=== PATIENT | male | born 1950 | race Caucasian/White ===

== ENCOUNTER 2024-08-07 11:56 | Outpatient (RCR) | payer MEDICARE, OTHER, SELFPAY | END 2024-08-11 23:59 | disposition home or self-care (01) | LOC: CR 11:56 | PROVIDERS: PCP Nurse Practitioner Primary Care; Visit Provider Internal Medicine Cardiovascular Disease | DX: I21.3 ST elevation (STEMI) myocardial infarction of unspecified site (principal) ==

== ENCOUNTER → 2024-08-31 11:00 | Outpatient (BNVA) | payer MEDICARE, SELFPAY | PROVIDERS: PCP Nurse Practitioner Primary Care; Referring Provider Nurse Practitioner Primary Care; Visit Provider Internal Medicine Cardiovascular Disease | DX: I21.02 ST elevation (STEMI) myocardial infarction involving left anterior descending coronary artery (principal) | CPT/HCPCS: 99203 ==

== ENCOUNTER 2024-09-07 11:04 | Outpatient (RCR) | payer MEDICARE, SELFPAY ==
--- NOTE | 2024-08-17 08:00 | RT.EKG_ITS ---
APPROVED REPORT Exam: Resting ECG Reason for Exam: cardiac rehab intake Patient Location: O HR:56 bpm ECG Measurements Heart Rate 56 AXIS CO 162 P 59 QRSd 115 QRS 193 QT 466 T 172 QTc 450 Conclusion Sinus rhythm...normal P axis, V-rate 50- 99 Nonspecific intraventricular conduction delay...QRSd >115mS, not LBBB/RBBB Anterolateral infarct, age indeterminate...Q >35mS, flat/neg T, V3-V6,I,aVL
--- NOTE | 2024-08-22 10:15 | RT.EKG_ITS ---
APPROVED REPORT Exam: Resting ECG Reason for Exam: EKG changes Patient Location: O HR:56 bpm ECG Measurements Heart Rate 56 AXIS IN 167 P 78 QRSd 99 QRS 128 QT 473 T 171 QTc 457 Conclusion Sinus rhythm...normal P axis, V-rate 50- 99 Anterolateral infarct, age indeterminate...Q >35mS, flat/neg T, V3-V6,I,aVL I have reviewed and I agree with the emergency room physician's ECG interpretation.
--- OUTSIDE RECORDS SUMMARY | 2024-08-22 11:32 | XMS_ITS | Clinical Summary ---
Author Organization [facility] Address [facility] [place] [address] Care Team Providers Care Android Ui Developer Name Role Phone Alexia Mtz CAN FILLER Primary Care Provider [phone] Allergies No known active allergies Medications Medication Sig Dispensed Refills Start Date End Date Status losartan (Cozaar) 25 mg tablet Take 25 mg by mouth daily. 04/17/2023 Active Psyllium Seed-Sucrose (0) Powder Take by mouth. Active tamsulosin (Flomax) 0.4 mg capsule Take 0.8 mg by mouth daily. 08/28/2023 Active aspirin EC 81 mg EC (DR) tablet Take 1 tablet by mouth daily. 30 tablet 3 08/05/2024 Active atorvastatin (Lipitor) 80 mg tablet Take 1 tablet by mouth every evening. 90 tablet 3 08/04/2024 Active clopidogreL (Plavix) 75 mg tablet Take 1 tablet by mouth daily. 90 tablet 3 08/05/2024 Active metoprolol succinate XL (Toprol-XL) 25 mg ER 24 hr tablet Take 1 tablet by mouth daily. 30 tablet 12 08/05/2024 Active spironolactone (Aldactone) 25 mg tablet Take 0.5 tablets by mouth daily for 90 days. 15 tablet 2 08/05/2024 11/03/2024 Active nitroGLYcerin (Nitrostat) 0.[address] 1 tablet under the tongue every 5 minutes as needed for Chest pain. 90 tablet 12 08/04/2024 Active dapagliflozin propanediol (Farxiga) 10 mg tablet Take 1 tablet by mouth daily for 60 days. 30 tablet 1 08/04/2024 10/03/2024 Active Active Problems Problem Noted Date Diagnosed Date STEMI (ST elevation myocardial infarction) 07/29 Dizziness 02/07/2019 Encounters Date Type Department Care Team Description 07/31/2024 4:45 PM EST Anesthesia Event [place] [address] Venkatesh Mauricio MD 07/31/2024 4:30 PM EST - 07/31/2024 5:30 PM EST Surgery [place] [address] Maldonado Luis MD CARDIAC CATHETERIZATION 07/29/2024 6:32 PM EST - 07/29/2024 11:59 PM EST Hospital Encounter [facility] at [address] [phone] Arvin Becerra MD Discharge Disposition: Home 07/29/2024 12:00 PM EST - 07/29/2024 12:54 PM EST Surgery [place] [address] Vahe Marvin MD CARDIAC CATHETERIZATION 07/29/2024 11:45 AM EST - 08/04/2024 5:00 PM EST [place] [address] Vahe Marvin MD Dadekian, Gregory A, MD Welch, Terrence D, MD Vinod, Poornima, MD Kostojchin, Anastas, MD Kussaga, Frank M, MD ST elevation myocardial infarction involving left anterior descending (LAD) coronary artery; HFrEF (heart failure with reduced ejection fraction) Discharge Disposition: Home 07/29/2024 Orders Only [place] [address] Susannah Watts PA 07/29/2024 Interpretation Only [address] [phone] Deondre Ferrera MD 07/29/2024 [place] [address] Ivan Hernandez MD 07/29/2024 External [place] [address] 07/28/2024 Interpretation Only [address] [phone] Quinten Coffey MD 06/25/2024 [place] [address] Aubrey Cali MD Pyuria from Last 3 Months Immunizations Name Administration Dates Next Due Influenza Adjuvanted (FluAd) Trivalent, PF 65yrs + 08/04/2024 Family History Medical History Relation Comments Celiac Disease Neg Hx Colorectal Cancer Neg Hx Esophageal Cancer Neg Hx Inflammatory Bowel Disease Neg Hx Pancreatic Cancer Neg Hx Stomach Cancer Neg Hx Relation Status Comments Daughter Alive Social History Tobacco Use Types Packs/Day Years Used Date Smoking Tobacco: Former Cigarettes Smokeless Tobacco: Never Tobacco Cessation:Counseling Given: Not Answered Alcohol Use Standard Drinks/Week Comments Not Currently 0 (1 standard drink = 0.6 oz pur e alcohol) [facility] Utilities Answer Date Recorded In the past 12 months has th e [employer], gas, oil, or water Elli threatened to shut off services in your home? No 07/30/2024 Hunger Vital Sign Answer Date Recorded Within the past 12 months, y ou worried that your food would run out before you got the money to buy more. Never true 07/30/20 24 Within the past 12 months, t he food you bought just didn't last and you didn't have money to get more. Never true 07/30/2024 PRAPARE - Transportation Answer Date Re corded In the past 12 months, has l ack of transportation kept you from medical appointments or from getting medications? No 07/13 In the past 12 months, has l ack of transportation kept you from meetings, work, or from getting things needed for daily living? No 07/30/2024 Housing Stability Vital Sign Answer Gilberto e Recorded In the last 12 months, was t here a time when you were not able to pay the mortgage or rent on time? No 07/30/2024 In the past 12 months, how m any times have you moved where you were living? 0 07/30/2024 At any time in the past [address] [facility], were you homeless or living in a custodial (including now)? No 07/30/2024 COUNTS INCLUDE 234 BEDS AT THE [facility] Inpatient Questions Answer Date Recorded Does Anyone Try to Keep You From Having Contact with Others or Doing Things Outside Your Home? no 07/30/2024 Feels Threatened by Someone no 07/13 Feels Unsafe at Home or Work/School yes 07/30/2024 Physical Signs of Abuse Present no 07/30/2024 Sex and Gender Information Value Date Recorded Sex Assigned at Male 06/21/2023 9:42 AM EDT Gender Identity Male 06/21/2023 9:42 AM EDT Sexual Orientation Straight 06/21/2023 9: 42 AM EDT Last Filed Vital Signs Vital Sign Reading Time Taken Comments Blood Pressure 103/58 08/04/2024 3:42 PM EST Pulse 71 08/04/2024 3:42 PM EST Temperature 37.2 ??C (99 ??F) 08/04/2024 4:00 AM EST Respiratory Rate 18 08/04/2024 3:42 PM EST Oxygen Saturation 98% 08/04/2024 3:42 PM EST Inhaled Oxygen Concentration - - Weight 61.3 kg (135 lb 2.3 oz) 08/03/2024 4:00 A M EST Height 167.6 cm (5' 6) 07/30/2024 2:49 AM EST Body Mass Index 21.81 07/30/2024 2:49 AM EST Plan of Treatment Upcoming Encounters Date Type Department Care Team (Late st Contact Info) Description 10/01/2024 10:00 AM EST Office Visit Cardiology at [address] [phone] Mushtaq Murphy, FREDRICK Health Maintenance Due Date Last Done Comments CT Colonography 1950 FIT DNA 1950 FIT 1950 Sigmoidoscopy 1950 Pneumoccocal Vaccine: 65+ (1 of 2 - PCV) 1958 Hepatitis C Screening 1970 Tetanus/Diphtheria/Pertussis Vaccines (1 - Tdap) 1971 Zoster vaccine (1 of 2) 2002 Advance Directive 2007 RSV Vaccine (1 - Risk 60-74 years 1-dose series) 2012 AAA Screen 2017 Covid-19 Vaccine (1 - season) 2024 Colonoscopy 08/30/2033 08/30/2023, 08/30/2023 Colorectal Cancer Screening 08/30/2033 Sigmoidoscopy (10 year) with FIT yearly 08/30/2033 1 10/31/2022, 08/30/2023 Lipid Screening Discontinued 07/29/2024 Influenza (Flu) vaccine Completed 08/04/2024 Procedures Procedure Name Priority Date/Time Associated Diagnosis Comments CBC (WITH DIFF) Routine 08/04/2024 6:08 AM EST MAGNESIUM Routine 08/04/2024 6:08 AM EST BASIC METABOLIC PANEL Routine 08/04/2024 6:08 AM EST CBC (WITH DIFF) Routine 08/03/2024 5:16 AM EST MAGNESIUM Routine 08/03/2024 5:16 AM EST BASIC METABOLIC PANEL Routine 08/03/2024 5:16 AM EST POC, GLUCOSE Routine 08/02/2024 7:47 AM EST SCAN DOC: TELEMETRY STRIPS 08/02/2024 7:37 AM EST CBC (WITH DIFF) Routine 08/02/2024 4:20 AM EST MAGNESIUM Routine 08/02/2024 4:20 AM EST BASIC METABOLIC PANEL Routine 08/02/2024 4:20 AM EST POTASSIUM Routine 08/01/2024 8:39 PM EST POC, GLUCOSE Routine 08/01/2024 8:35 PM EST SCAN DOC: TELEMETRY STRIPS 08/01/2024 7:25 PM EST SCAN DOC: TELEMETRY STRIPS 08/01/2024 7:25 PM EST POC, GLUCOSE Routine 08/01/2024 4:55 PM EST POC, GLUCOSE Routine 08/01/2024 12:42 PM EST COOX, POC Routine 08/01/2024 10:45 AM EST POTASSIUM Routine 08/01/2024 8:20 AM EST POC, GLUCOSE Routine 08/01/2024 7:44 AM EST CBC (WITH DIFF) Routine 08/01/2024 4:18 AM EST MAGNESIUM Routine 08/01/2024 4:18 AM EST BASIC METABOLIC PANEL Routine 08/01/2024 4:18 AM EST POC, GLUCOSE Routine 07/31/2024 8:41 PM EST CARDIAC CATHETERIZATION Routine 07/31/20 24 5:53 PM EST POC, GLUCOSE Routine 07/31/2024 11:04 AM EST BLOOD GAS ARTERIAL POC Routine 8:29 AM EST POC, GLUCOSE Routine 07/31/2024 7:47 AM EST CBC (WITH DIFF) Routine 07/31/2024 1:08 AM EST MAGNESIUM Routine 07/31/2024 1:08 AM EST BASIC METABOLIC PANEL Routine 07/31/2024 1:08 AM EST HEPATIC FUNCTION PANEL Routine 1:08 AM EST POC, GLUCOSE Routine 07/30/2024 8:03 PM EST POTASSIUM Routine 07/30/2024 8:03 PM EST POC, GLUCOSE Routine 07/30/2024 6:23 PM EST POC, GLUCOSE Routine 07/30/2024 5:08 PM EST PHOSPHORUS Routine 07/30/2024 3:08 PM EST MAGNESIUM Routine 07/30/2024 3:08 PM EST BASIC METABOLIC PANEL Routine 07/30/2024 3:08 PM EST ECHO LMTD W CONTRAST W LMTD SPEC DOPP COLOR DOPP Routine 07/30/2024 11:[address] elevation myocardial infarction involving left anterior descending (LAD) coronary artery POC, GLUCOSE Routine 07/30/2024 11:17 AM EST BLOOD GAS ARTERIAL POC Routine 8:16 AM EST TROPONIN - SINGLE STAT 07/30/2024 8:0 9 AM EST POC, GLUCOSE Routine 07/30/2024 7:40 AM EST CBC (WITH DIFF) Routine 07/30/2024 2:11 AM EST MAGNESIUM Routine 07/30/2024 2:11 AM EST BASIC METABOLIC PANEL Routine 07/30/2024 2:11 AM EST ECHOCARDIOGRAM TRANSTHORACIC Routine 07/30/2024 1:41 AM EST COOX, POC Routine 07/30/2024 1:00 AM EST BLOOD GAS ARTERIAL POC Routine 12:57 AM EST TROPONIN - SINGLE STAT 07/29/2024 10: 31 PM EST POTASSIUM Routine 07/29/2024 8:11 PM EST TROPONIN - SINGLE Timed 07/29/2024 8:1 1 PM EST PHOSPHORUS Routine 07/29/2024 8:11 PM EST POC, GLUCOSE Routine 07/29/2024 8:09 PM EST ABORH RECHECK STAT 07/29/2024 6:43 PM EST POC, GLUCOSE Routine 07/29/2024 5:57 PM EST TYPE AND SCREEN ([facility]/CGP/MAGALIE) Routine 07/29/2024 5:56 PM EST TROPONIN - SINGLE Timed 07/29/2024 4:5 2 PM EST EKG 12-LEAD STAT 07/29/2024 4:[address] elevation myocardial infarction involving left anterior descending (LAD) coronary artery BLOOD GAS ARTERIAL POC Routine 4:21 PM EST POC, GLUCOSE Routine 07/29/2024 4:19 PM EST BLOOD CULTURE STAT 07/29/2024 4:08 PM EST BLOOD CULTURE STAT 07/29/2024 4:08 PM EST XR CHEST ONE VIEW STAT 07/29/2024 2:3 0 PM EST HC PARTIAL THROMBOPLASTIN TIME Routine 07/29/2024 2:03 PM EST PROTHROMBIN TIME Routine 07/29/2024 2:03 PM EST CRP, ACUTE INFLAMMATION Routine 07/29/20 24 2:03 PM EST LIPID PANEL (REFLEX DIRECT LDL) Routine 07/29/2024 2:03 PM EST TSH CASCADE Routine 07/29/2024 2:03 PM EST HEMOGLOBIN A1C Routine 07/29/2024 2:03 PM EST CBC (WITH DIFF) STAT 07/29/2024 2:03 PM EST PHOSPHORUS STAT 07/29/2024 2:03 PM EST MAGNESIUM STAT 07/29/2024 2:03 PM EST COMPREHENSIVE METABOLIC PANEL Routine 07/29/2024 2:03 PM EST TROPONIN - SINGLE STAT 07/29/2024 2:0 3 PM EST BLOOD GAS VENOUS POC Routine 07/29/2024 2:01 PM EST EKG 12-LEAD Routine 07/29/2024 1:43 PM EST CARDIAC CATHETERIZATION Routine 07/29/20 1:20 PM EST BLOOD GAS, POC Routine 07/29/2024 12:46 PM EST BLOOD GAS, POC Routine 07/29/2024 12:12 PM EST XR CHEST ONE VIEW STAT 07/29/2024 10: 50 AM EST MISC EXTERNAL CARDIOLOGY RESULT Routine 07/29/2024 10:13 AM EST XR CHEST ONE VIEW STAT 07/28/2024 10: 22 AM EST URINE CULTURE Routine 06/25/2024 11:55 AM EDT Pyuria COLONOSCOPY Routine 08/30/2023 10:57 AM EST from Last 3 Months or Most Recently Relevant to Health Maintenance Results * (ABNORMAL) CBC (with Diff) (08/04/2024 6:08 AM EST) Only the most recent of7 resultswithin the time period is included. White Blood Cell 7.27 4.00 - 9.50 x10(3)/mc L 08/04/2024 6:39 AM [facility] Red Blood Cell 4.28(L) 4.58 - 5.54 x10(6)/mc L 08/04/2024 6:39 AM [facility] Hemoglobin 11.6(L) 13.7 - 16.5 g/dL 08/04/2024 6:39 AM [facility] Hematocrit 34.8(L) 40.5 - 48.5 % 08/04/2024 6:39 AM [facility] Mean Cell Volume 81.3(L) 82.9 - 93.1 fL 08/04/2024 6:39 AM [facility] Mean Cell Hemoglobin 27.1(L) 27.5 - 32.1 pg 08/04/2024 6:39 AM [facility] Mean Cell Hemoglobin Concentration 33.3 32.0 - 35.7 g/dL 08/04/2024 6:39 AM [facility] Platelet 178 145 - 357 x10(3)/mc L 08/04/2024 6:39 AM [facility] Mean Platelet Volume 10.6 7.6 - 12.9 fL 08/04/2024 6:39 AM [facility] RDW Standard Deviation 42.0 36.0 - 45.0 fL 08/04/2024 6:39 AM [facility] RDW coefficient of variation 14.3(H) 11.4 - 13.8 % 08/04/2024 6:39 AM [facility] NRBC% auto 0.0 % 08/04/2024 6:39 AM [facility] NRBC Absolute <0.01 <0.01 x10(3)/mc L 08/04/2024 6:39 AM [facility] Neutrophil % 72.1 % 08/04/2024 6:39 AM [facility] Neutrophil Absolute (ANC) - Automated 5.24 1.70 - 6.10 x10(3)/mc L 08/04/2024 6:39 AM [facility] Lymph % 16.8 % 08/04/2024 6:39 AM [facility] Lymph Absolute 1.22 0.90 - 3.20 x10(3)/mc L 08/04/2024 6:39 AM [facility] Monocyte % 8.5 % 08/04/2024 6:39 AM [facility] Monocyte Absolute 0.62 0.30 - 0.90 x10(3)/mc L 08/04/2024 6:39 AM [facility] Eos % 1.9 % 08/04/2024 6:39 AM [facility] Eos Absolute 0.14 0.00 - 0.40 x10(3)/mc L 08/04/2024 6:39 AM [facility] Basophil % 0.4 % 08/04/2024 6:39 AM [facility] Baso Absolute <0.04 0.00 - 0.10 x10(3)/mc L 08/04/2024 6:39 AM [facility] Immature Gran % 0.3 % 6:39 AM [facility] Immature Gran Absolute <0.04 0.00 - 0.04 x10(3)/mc L 08/04/2024 6:39 AM [facility] Blood VENOUS BLOOD SPECIMEN / Unknown Venipuncture / Unknown 08/04/2024 6:08 AM EST 08/04/2024 6:19 AM EST Bridgette Stauffer MD HEMATOLOGY ORDERABLE S Performing Organization Address City/[facility]/ZIP Co de Phone Number [facility] [place] [address] * Magnesium (08/04/2024 6:08 AM EST) Only the most recent of8 resultswithin the time period is included. Magnesium 0.85 0.69 - 1.07 mMol/L 08/04/2024 7:07 AM [facility] Blood VENOUS BLOOD SPECIMEN / Unknown Venipuncture / Unknown 08/04/2024 6:08 AM EST 08/04/2024 6:19 AM EST Bridgette Stauffer MD CHEMISTRY ORDERABLES Performing Organization Address [facility] Co de Phone Number [facility] [place] [address] * Basic Metabolic Panel (08/04/2024 6:08 AM EST) Only the most recent of7 resultswithin the time period is included. Glucose 93 65 - 199 mg/dL 08/04/2024 7:07 AM [facility] Comment:Glucose Concentratio n >=200 mg/dL plus symptoms is consistent with Diabetes Mellitus. Blood Urea Nitrogen 14 10 - 20 mg/dL 08/04/2024 7:07 AM [facility] Creatinine 1.07 0.80 - 1.50 mg/dL 08/04/2024 7:07 AM [facility] Sodium 138 135 - 145 mMol/L 08/04/2024 7:07 AM [facility] Potassium 4.3 3.5 - 5.0 mMol/L 08/04/2024 7:07 AM [facility] Chloride 107 98 - 107 mMol/L 08/04/2024 7:07 AM [facility] Carbon Dioxide 23 22 - 31 mMol/L 08/04/2024 7:07 AM [facility] Anion Gap 8 5 - 15 mMol/L 08/04/2024 7:07 AM EST [facility] Calcium 8.5 8.5 - 10.5 mg/dL 08/04/2024 7:07 AM EST [facility] Est Glomerular Filtration Rate - Male 74 mL/min/1. 73 m?? 08/04/2024 7:07 AM EST [facility] Comment: This patient's estimated GFR was calculated using the 2020 CKD-EPI equation. The estimated GFR can vary from the measured GFR by up to 30% in the absence of rapidly changing kidney function. Assessment of the estimated GFR is not appropriate when creatinine concentrations are rapidly changing. For clinical situations in which a more precise estimate of GFR is necessary, consider alternative methods of GFR estimation such as a 24-hour urine creatinine clearance. Assignment of CKD stage 1 - 5 for patients with an eGFR near the transition point between stages may be based on clinical assessment of muscle mass and symptoms in addition to eGFR. Link: eGFR Calculator [employer] Blood VENOUS BLOOD SPECIMEN / Unknown Venipuncture / Unknown 08/04/2024 6:08 AM EST 08/04/2024 6:19 AM EST Bridgette Stauffer MD CHEMISTRY ORDERABLES Performing Organization Address City/[facility]/ZIP Co de Phone Number [facility] [place] [address] * POC, GLUCOSE (08/02/2024 7:47 AM EST) Only the most recent of16 resultswithin the time period is included. [facility] Signature Glucometer, POC 89 65 - 199 mg/dL 08/02/2024 7:47 AM EST [facility] Comment:Supplemental ranges: <140 mg/dL before meals <180 mg/dL all other times of the day. Blood CAPILLARY BLOOD / Unknown 08/02/2024 7:47 AM EST 08/02/2024 7:47 AM EST Arnel Parker MD POINT OF CARE TEST O RDERABLES Performing Organization Address City/[facility]/ZIP Co de Phone Number [facility] [place] [address] * Scan Doc: Telemetry Strips (08/02/2024 7:37 AM EST) Only the most recent of3 resultswithin the time period is included. Narrative 08/02/2024 7:37 AM EST Ordered by an unspecified provider. Scanning Provider MEDIA MGR SCAN EXT O RDR/RSLT * Potassium (08/01/2024 8:39 PM EST) Only the most recent of4 resultswithin the time period is included. Pathologist [facility] Potassium 4.0 3.5 - 5.0 mMol/L 08/01/2024 9:21 PM EST [facility] Blood VENOUS BLOOD SPECIMEN / Unknown Venipuncture / Unknown 08/01/2024 8:39 PM EST 08/01/2024 8:51 PM EST Jay Silverio MD CHEMISTRY ORDERABL ES [facility] [place] [address] * (ABNORMAL) Cooximetry, POC (08/01/2024 10:45 AM EST) Only the most recent of2 resultswithin the time period is included. pO2, Coox 32 mmHg 08/01/2024 10:48 AM EST [facility] Hemoglobin, Coox 12.9(L) 13.7 - 16.5 g/dL 08/01/2024 10:48 AM EST [facility] Oxyhemoglobin, Coox 66.7 % 08/01/2024 10:48 AM EST [facility] Carboxyhemoglo bin, Coox 1.1 % 08/01/2024 10:48 AM EST [facility] Comment: Nonsmokers: 0.5-1.5% COHB ?? Smokers: Variable ??but usually less than 10% ?? Toxic: 20-30% COHB ?? Lethal: Greater than 60% COHB Methemoglobin, Coox 0.3 <=1.5 % 08/01/2024 10:48 AM EST [facility] Blood (Mixed Venous) 08/01/2024 10:45 AM EST 08/01/2024 10:48 AM EST Arnel Parker MD POINT OF CARE TEST O RDERABLES Performing Organization Address [facility]/State/[facility] Co de Phone Number [facility] [place] [address] * CARDIAC CATHETERIZATION (07/31/2024 5:53 PM EST) Only the most recent of2 resultswithin the time period is included. Anatomical Region Laterality Modality Other Narrative 08/01/2024 12:37 PM EST ?[facility] ? Cardiac Catheterization/Intervention Report ? Patient Name: MontoyaKorey. ? Procedure Date: 07/31/2024 ? A #: [id number] ? Primary Physician: Janelle, Maldonado Muro ? Case #: [id number] ? File Name: [id number] ? Catheterization Order Number: [id number] ? [facility] ? Final Report [place], [place] ? Patient Name: ? Korey Montoya ?ID#: ?[id number] ? : ?1950 ? Procedure Date: ? July 31, 2024 ?Case #: ? [id number] ? Room: ? 1 ? Case Physician: ? Maldonado Luis MVictor M. ?Start: ?17:10 ? Admission: ??07/29/2024 ? Referring Physician: ??Deondre Ferrera ? Procedures: ?* Vascular Closure Device Deployment ?* Percutaneous Ventricular Assist Device Removal ? History ?Korey Montoya is a 74 year old man. He has hypertension. The ?patient's smoking status is Former. He is status post a recent ST ?elevation myocardial infarction. The patient had a recent coronary ?intervention procedure. Prior to the initiation of this procedure, the ?patient was designated as ASA Class IV. The CSHA clinical frailty scale ?is 4: Vulnerable. ? Diagnostic Tests: ?Electrocardiography: ? EKG was assessed by ECG. EKG was Abnormal. EKG showed ST Deviation ? >= 0.5 mm. ?Medications Prior to Procedure: ? Antiarrhythmic Agent Other, Aspirin and Angiotensin II Receptor ? Janice. ? Technique: ?Radiation: Fluoro time was 0.5 minutes, dose area product was 0.33 Gy/cm2 ?and air kerma was 2 mGY. See the case log for additional details. ?The patient received the following medications prior to and during the ?procedure: ? Unfractionated Heparin and Clopidogrel. ? Vascular Access: ?Vascular Access Management: ? A 6 Fr Perclose was deployed at the right femoral artery access ? site. This device was successful. Manual Compression of the right ? femoral artery access site was performed. ? An 8 Fr AngioSeal was deployed at the right femoral artery access ? site. This device was successful. Manual Compression of the right ? femoral artery access site was performed. ? Complications/Events: ?The patient had no complications during these procedures. ? Comments: ?Impella removed from the right [employer]CH[employer]ICIAN with deployment of Perclose and ?Angioseal. ??Good hemostasis. ?The attending physician was present for the entire procedure. ?Dr. Maldonado Luis M.D. was present during the moderate sedation ?intraservice time as documented by the sedation nurse. ??Case time = 00:35. ?Dr. Maldonado Luis M.D. performed the vascular closure device and ?ventricular assist device removal. ? Maldonado Luis M.D. ? Electronically Signed by: Maldonado Luis M.D. ? Report Finalized: 08/01/2024 ??12:31 ? Procedure Note Maldonado Luis MD - 08/01/2024 [facility] Cardiac Catheterization/Intervention Report Patient Name: Korey Montoya Procedure Date: 07/31/2024 A #: [id number] Primary Physician: Maldonado Luis Case #: [id number] File Name: [id number] Catheterization Order Number: [id number] [facility] FinalReport [place], [place] Patient Name: Korey Montoya ID#:[id number] :1950 Procedure Date: July 31, 2024 Case #: [id number] Room: 1 Case Physician: Maldonado Luis M.D. Start: 17:10 Admission:07/29/2024 Referring Physician: Deondre Ferrera Procedures: * Vascular Closure Device Deployment * Percutaneous Ventricular Assist Device Removal History Korey Montoya is a 74 year old man. He has hypertension. The patient's smoking status is Former. He is status post a recent ST elevation myocardial infarction. The patient had a recent coronary intervention procedure. Prior to the initiation of this procedure,the patient was designated as ASA Class IV. The [facility] clinical frailtyscale is 4: Vulnerable. Diagnostic Tests: Electrocardiography: EKG was assessed by ECG. EKG was Abnormal. EKG showed STDeviation >= 0.5 mm. Medications Prior to Procedure: Antiarrhythmic Agent Other, Aspirin and Angiotensin II Receptor Janice. Technique: Radiation: Fluoro time was 0.5 minutes, dose area product was 0.33Gy/cm2 and air kerma was 2 mGY. See the case log for additional details. The patient received the following medications prior to and duringthe procedure: Unfractionated Heparin and Clopidogrel. Vascular Access: Vascular Access Management: A 6 Fr Perclose was deployed at the right femoral artery access site. This device was successful. Manual Compression of theright femoral artery access site was performed. An 8 Fr AngioSeal was deployed at the right femoral arteryaccess site. This device was successful. Manual Compression of theright femoral artery access site was performed. Complications/Events: The patient had no complications during these procedures. Comments: Impella removed from the right [employer] with deployment of Perclose and Angioseal. Good hemostasis. The attending physician was present for the entire procedure. Dr. Maldonado Luis M.D. was present during the moderate sedation intraservice time as documented by the sedation nurse. Case time =00:35. Dr. Maldonado Luis M.D. performed the vascular closure device and ventricular assist device removal. Maldonado Luis M.D. Electronically Signed by: Maldonado Luis M.D. Report Finalized: 08/01/2024 12:31 Maldonado Luis MD CARDIAC CATH ORDERAB LES * (ABNORMAL) Blood Gas, Arterial POC (07/31/2024 8:29 AM EST) Only the most recent of4 resultswithin the time period is included. pH, Arterial 7.48(H) 7.35 - 7.45 07/31/2024 8:30 AM [facility] PCO2, Arterial 29(L) 35 - 45 mmHg 07/31/2024 8:30 AM [facility] PO2, Arterial 71(L) 85 - 104 mmHg 07/31/2024 8:30 AM [facility] Bicarbonate, Arterial 20.6 20.0 - 26.0 mmol/L 07/31/2024 8:30 AM [facility] Base Excess, Arterial -3.0 -3.0 - 3.0 mmol/L 07/31/2024 8:30 AM [facility] Hemoglobin, Arterial 12.3(L) 13.7 - 16.5 g/dL 07/31/2024 8:30 AM [facility] Oxyhemoglobin, Arterial 94.4 94.0 - 97.0 % 07/31/2024 8:30 AM [facility] Carboxyhemoglobin , Arterial 0.7 % 07/31/2024 8:30 AM [facility] Comment: Nonsmokers: 0.5-1.5% COHB ?? Smokers: Variable ??but usually less than 10% ?? Toxic: 20-30% COHB ?? Lethal: Greater than 60% COHB Methemoglobin, Arterial 0.3 <=1.5 % 07/31/2024 8:30 AM [facility] Sodium, Arterial 138 135 - 145 mmol/L 07/31/2024 8:30 AM [facility] Potassium, Arterial 3.5 3.5 - 5.0 mmol/L 07/31/2024 8:30 AM [facility] Chloride, Arterial 109(H) 98 - 107 mmol/L 07/31/2024 8:30 AM [facility] Lactate, Arterial 0.8 0.5 - 2.2 mmol/L 07/31/2024 8:30 AM [facility] Fraction of Inspired Oxygen 21 % 07/31/2024 8:30 AM [facility] PF Ratio 338 Ratio 07/31/2024 8:30 AM [facility] Comment:PF ratio calculated using the non-temperature corrected pO2 result. IONIZED CALCIUM, ARTERIAL 1.08(L) 1.15 - 1.33 mmol/L 07/31/2024 8:30 AM EST [facility] Glucose, Arterial 86 65 - 199 mg/dL 07/31/2024 8:30 AM EST [facility] Comment:Glucose Concentratio n >=200 mg/dL plus symptoms is consistent with Diabetes Mellitus. Blood ARTERIAL BLOOD / Unknown 07/31/2024 8:29 AM EST 07/31/2024 8:30 AM EST Arnel Parker MD POINT OF CARE TEST O RDERABLES [facility] [place] [address] * (ABNORMAL) Hepatic Function Panel (07/31/2024 1:08 AM EST) Albumin 3.1(L) 3.2 - 5.2 g/dL 07/31/2024 1:46 AM EST [facility] Aspartate Aminotransferase 192(H) <=39 unit/L 07/31/2024 1:46 AM [facility] Alanine Aminotransferase 59(H) 0 - 55 unit/L 07/31/2024 1:46 AM [facility] Alkaline Phosphatase 46 40 - 130 unit/L 07/31/2024 1:46 AM [facility] Bilirubin, Total 0.4 <=1.3 mg/dL 07/31/2024 1:46 AM [facility] Bilirubin, Direct <0.2 0.0 - 0.3 mg/dL 07/31/2024 1:46 AM EST [facility] Protein, Total 5.0(L) 6.1 - 8.0 g/dL 07/31/2024 1:46 AM [facility] Blood VENOUS BLOOD SPECIMEN / Unknown Venipuncture / Unknown 07/31/2024 1:08 AM EST 07/31/2024 1:18 AM EST Arnel Parker MD CHEMISTRY ORDERABLES Performing Organization Address City/[facility]/ZIP Co de Phone Number [facility] [place] [address] * (ABNORMAL) Phosphorus (07/30/2024 3:08 PM EST) Only the most recent of3 resultswithin the time period is included. Phosphorus 2.1(L) 2.5 - 4.5 mg/dL 07/30/2024 3:58 PM EST [facility] Blood VENOUS BLOOD SPECIMEN / Unknown Venipuncture / Unknown 07/30/2024 3:08 PM EST 07/30/2024 3:12 PM EST Jay Silverio MD CHEMISTRY ORDERABL ES Performing Organization Address City/[facility]/ZIP Co de Phone Number [facility] [place] [address] * ECHO LMTD W CONTRAST W LMTD SPEC DOPP COLOR DOPP (07/30/2024 11:42 AM EST) Anatomical Region Laterality Modality Cardiac Other 07/30/2024 10:2 2 AM EST Narrative 07/30/2024 12:34 PM EST [address] [place] [address] ? Echocardiogram Report Name: KOREY MONTOAY ? Study Date: 07/30/2024 10:22 AMBP: 124/66 mmHg : 1950 ? Height: 168 cm ? Account: [id number] Age: 74 yrs ? Weight: 65 kg Gender: Male ?BSA: 1.7 m2 Ordering Physician: Jya Silverio MD Referring Physician: DEONDRE FERRERA Performed By: OMERO Millan Reason For Study: ST elevation myocardial infarction involving left anterior descending (LAD) coronary artery Interpreting Fellow: Ivan Hernandez. Exam Location: [facility]. Interpretation Summary Left ventricle is severely dilated. Mildly increased thickness of the basal septum with no obstruction to LV outflow. Left ventricular systolic function is moderately reduced. The left ventricular ejection fraction is 33% by Giordano's biplane. There are segmental wall motion abnormalities. There is no left ventricular thrombus. An Impella catheter is present. The inlet area of the Impella catheter is 3.6 cm from the aortic annulus. The right ventricle is of normal size. The distal right ventricular apex is akinetic. Global right ventricular systolic function is probably normal. The peak right ventricular systolic pressure is 32 mmHg Plus RA presssure. The left atrium is mildly dilated. Mild to moderate tricuspid regurgitation. Mild mitral regurgitation. Mild aortic regurgitation. Compared to the overnight study by the language and literature division chair fellow the impella position is stable. 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 Procedure Limited - 36[address]. Image enhancement Definity was used for both Doppler and ventricular definition. Suboptimal quality. This study is limited because the patient was unable to turn. Irregular rhythm. Left Ventricle Left ventricle is severely dilated. Mildly increased thickness of the basal septum with no obstruction to LV outflow. There is no ventricular septal defect. Left ventricular systolic function is moderately reduced. The left ventricular ejection fraction is 38% by Giordano's biplane. There are segmental wall motion abnormalities. There is no left ventricular thrombus. An Impella catheter is present. The inlet area of the Impella catheter is 3.6 cm from the aortic annulus. Right Ventricle The right ventricle is of normal size. The right ventricular apex is akinetic. Right ventricular function is probably normal. Left Atrium The left atrium is mildly dilated. Right Atrium The right atrium is normal. Aortic Valve The aortic valve is probably trileaflet. There is mild aortic regurgitation. Mitral Valve The mitral valve is structurally and functionally normal. There is mild mitral regurgitation. Tricuspid Valve The tricuspid valve is structurally normal. There is mild to moderate tricuspid regurgitation. Pulmonic Valve The pulmonic valve is not well visualized. There is trace pulmonic valve regurgitation. Great Arteries The diameter at the level of the sinuses of Valsalva is 3.3 cm. The maximum diameter of the proximal ascending aorta is 3.0 cm. The pulmonary artery is not well visualized. Venous Inferior vena cava is not well visualized. Pericardium/Pleural There is no pericardial effusion. Hemodynamics The peak right ventricular systolic pressure is 32 mmHg. Plus RA presssure. Left ventricular diastolic function is abnormal. There is Grade II LV diastolic dysfunction (abnormal relaxation with elevated left ventricular filling pressure). Ejection Fraction ?2D Measurements ? Volumes EF(MOD-bp): 32.6 % ?IVSd: 1.4 cm ? LAV(MOD- bp) Indexed: ?LVIDd: 4.5 cm ?LVIDs: 3.3 cm ?40.0 ml/m2 ?LVPWd: 0.86 cm ? RA A4Cs_phl: 11.2 cm2 ?RWT: 0.38 {ratio} ?EDV(MOD-bp) Indexed: ?LV mass(C)d: 183.7 grams ? 98.2 ml/m2 ?LV mass(C)dI: 105.7 grams/m2 ?? ESV(MOD- bp) Indexed: ?Ao root diam: 3.3 cm ? 66.2 ml/m2 ?Ao root diam index: 1.9 ?asc Aorta Diam: 3.0 cm ?LVOT diam: 1.7 cm ?TAPSE_phl: 1.8 cm Doppler MV E max wellington: 55.5 cm/sec MV A max wellington: 46.1 cm/sec MV E/A: 1.2 Lat Peak E' Wellington: 8.7 cm/sec E/e' (lat): 6.4 Med Peak E' [place]: 6.9 cm/sec E/e' (med): 8.1 E/e' Average: 7.2 TR max wellington: 284.6 cm/sec I ?WMSI = 2.50 ? % Normal = 0 ?Segments ??Size X - Cannot ?2 - ?4 - ?1-2 ? small Interpret ?1 - Normal ?? Hypokinetic 3 - Akinetic Dyskinetic ?? 3-5 ? moderate 5 - ? 6-14 ?large Aneurysmal ?15-16 ?? diffuse Procedure Note Kathleen Banda MD - 07/30/2024 [address] [place] [address] Echocardiogram Report Name: KOREY MONTOYA Study Date: 410:22 AMBP: 124/66 mmHg : 1950 Height: 168 cm Account: [id number] Age: 74 yrs Weight: 65 kg Gender: Male BSA: 1.7 m2 Ordering Physician: Jay Silverio MD Referring Physician: DEONDRE FERRERA Performed By: OMERO Millan Reason For Study: ST elevation myocardial infarction involving leftanterior descending (LAD) coronary artery Interpreting Fellow: Ivan Hernandez. Exam Location: [facility]. Interpretation Summary Left ventricle is severely dilated. Mildly increased thickness of thebasal septum with no obstruction to LV outflow. Left ventricular systolic function is moderately reduced. The left ventricular ejection fraction is 33% bySimpson's biplane. There are segmental wall motion abnormalities. There is no left ventricular thrombus. An Impella catheter is present. The inlet area ofthe Impella catheter is 3.6 cm from the aortic annulus. The right ventricle is of normal size. The distal right ventricular apexis akinetic. Global right ventricular systolic function is probably normal.The peak right ventricular systolic pressure is 32 mmHg Plus RA presssure. The left atrium is mildly dilated. Mild to moderate tricuspid regurgitation. Mild mitral regurgitation. Mild aortic regurgitation. Compared to the overnight study by the language and literature division chair fellow the impella positionis stable. The global left ventricular systolic function has improvedpredominantly via recruitment outside the LAD territory which remains akinetic. Procedure Limited - 37072. Image enhancement Definity was used for both Dopplerand ventricular definition. Suboptimal quality. This study is limited becausethe patient was unable to turn. Irregular rhythm. Left Ventricle Left ventricle is severely dilated. Mildly increased thickness of thebasal septum with no obstruction to LV outflow. There is no ventricular septal defect.Left ventricular systolic function is moderately reduced. The left ventricularejection fraction is 38% by Giordano's biplane. There are segmental wall motion abnormalities. There is no left ventricular thrombus. An Impella catheteris present. The inlet area of the Impella catheter is 3.6 cm from the aorticannulus. Right Ventricle The right ventricle is of normal size. The right ventricular apex isakinetic. Right ventricular function is probably normal. Left Atrium The left atrium is mildly dilated. Right Atrium The right atrium is normal. Aortic Valve The aortic valve is probably trileaflet. There is mild aorticregurgitation. Mitral Valve The mitral valve is structurally and functionally normal. There is mildmitral regurgitation. Tricuspid Valve The tricuspid valve is structurally normal. There is mild to moderatetricuspid regurgitation. Pulmonic Valve The pulmonic valve is not well visualized. There is trace pulmonic valve regurgitation. Great Arteries The diameter at the level of the sinuses of Valsalva is 3.3 cm. Themaximum diameter of the proximal ascending aorta is 3.0 cm. The pulmonary arteryis not well visualized. Venous Inferior vena cava is not well visualized. Pericardium/Pleural There is no pericardial effusion. Hemodynamics The peak right ventricular systolic pressure is 32 mmHg. Plus RApresssure. Left ventricular diastolic function is abnormal. There is Grade II LVdiastolic dysfunction (abnormal relaxation with elevated left ventricular fillingpressure). Ejection Fraction 2D Measurements Volumes EF(MOD-bp): 32.6 % IVSd: 1.4 cm LAV(MOD-bp)Indexed: LVIDd: 4.5 cm LVIDs: 3.3 cm 40.0 ml/m2 LVPWd: 0.86 cm RA A4Cs_phl: 11.2cm2 RWT: 0.38 {ratio} EDV(MOD-bp)Indexed: LV mass(C)d: 183.7 grams 98.2 ml/m2 LV mass(C)dI: 105.7 grams/m2 ESV(MOD-bp)Indexed: Ao root diam: 3.3 cm 66.2 ml/m2 Ao root diam index: 1.9 asc Aorta Diam: 3.0 cm LVOT diam: 1.7 cm TAPSE_phl: 1.8 cm Doppler MV E max wellington: 55.5 cm/sec MV A max wellington: 46.1 cm/sec MV E/A: 1.2 Lat Peak E' Wellington: 8.7 cm/sec E/e' (lat): 6.4 Med Peak E' [place]: 6.9 cm/sec E/e' (med): 8.1 E/e' Average: 7.2 TR max wellington: 284.6 cm/sec I WMSI = 2.50 % Normal = 0 SegmentsSize X - Cannot 2 - 4 - 1-2small Interpret 1 - Normal Hypokinetic 3 - Akinetic Dyskinetic 3-5moderate 5 - 6-14large Aneurysmal 15-16diffuse Jay Silverio MD ECHO ORDERABLES * (ABNORMAL) Troponin - Single (07/30/2024 8:09 AM EST) Only the most recent of5 resultswithin the time period is included. Troponin-T, High Sensitivity 8,651(H) <=22 ng/L 07/30/2024 9:06 AM EST [facility] Comment: This patient's troponin T concentration was determined using the Tonya 5th Generation troponin T assay. According to the fourth universal definition of myocardial infarction, the term acute myocardial infarction should be used when there is acute myocardial injury with clinical evidence of acute myocardial ischemia and with detection of a rise and/or fall of cardiac troponin values with at least one value above the 99th percentile and at least one of the following: - Symptoms of myocardial ischemia; - New ischemic ECG changes; - Development of pathological Q waves; - Imaging evidence of new loss of viable myocardium or new regional wall motion ?? abnormality in a pattern consistent with an ischemic etiology; - Identification of a coronary thrombus by angiography or autopsy (not for type 2 or 3 ?? MIs) Serial measurement of troponin and the change in troponin concentration over time (delta) is crucial for the diagnosis of acute myocardial infarction. Guidance on the interpretation of the new 5th Generation Troponin T values and the delta troponin value can be found in the [facility] Test Catalog Troponin - [email or web address].org/catalogs/565/files/34537 Reference: Fourth [place] Definition of Myocardial Infarction. Journal of the [employer] 2018;72:9075-4311 Blood VENOUS BLOOD SPECIMEN / Unknown Venipuncture / Unknown 07/30/2024 8:09 AM EST 07/30/2024 8:26 AM EST Jay Silverio MD CHEMISTRY ORDERABL ES Performing Organization Address City/State/[facility] Co de Phone Number [facility] [place] [address] * Echocardiogram Transthoracic (07/30/2024 1:41 AM EST) Anatomical Region Laterality Modality Cardiac Other 07/30/2024 1:41 AM EST Narrative 07/30/2024 8:23 AM EST [address] [place] [address] ? Echocardiogram Report Name: KOREY MONTOYA ? Study Date: 07/30/2024 01:41 AM : 1950 ? Height: 168 cm Age: 74 yrs ? Weight: 5.9 kg Gender: Male ?BSA: 0.63 m2 Performed By: Beatris Ching MD Reason For Study: STEMI, [place] History: ASCVD, HTN, HLD Interpreting Fellow: Beatris Ching. Interpretation Summary This is a limited study performed by a fellow language and literature division chair to evaluate for cardiogenic shock with impella in. Left ventricle is normal in size. The global systolic function is severely reduced and visually estimated at 20% on P6 support. There is dense akinesis in the distribution of the LAD territory and there is global hypokinesis in the remaining segments. The impella is positioned 3.5cm from the aortic annulus. Right ventricle is normal in size. Right ventricular apex is hypokinetic, but global systolic function is probably normal. The RVSP is estimated at 29 mmHg + RA pressure. There is at least moderate tricuspid regurgitation. There is mild mitral regurgitation. There is mild aortic regurgitation in the setting of Impella CP placement. Subcostal views were not obtained due to Zoll pads placement. There is no prior study available for comparison. Procedure Limited - 796[address]. Suboptimal quality. There is sinus bradycardia. Left Ventricle Left ventricle is of normal size. Left ventricular systolic function is severely reduced. Left ventricular ejection fraction is estimated visually at 20%. There are segmental wall motion abnormalities. There is global hypokinesis with regional akinesis, see PDF for details. An Impella catheter is present. Right Ventricle The right ventricle is of normal size. There is a catheter in the right ventricle. Right ventricular function is probably normal. The right ventricular apex is hypokinetic. Left Atrium The left atrium is mildly dilated. Right Atrium The right atrium is normal. A catheter is present in the right atrium. Aortic Valve The aortic valve is probably trileaflet. There is mild aortic regurgitation in the setting of Impella CP placement. Mitral Valve There is mild mitral regurgitation. Tricuspid Valve The tricuspid valve is structurally normal. There is moderate tricuspid regurgitation. Pulmonic Valve The pulmonic valve is not well visualized. Great Arteries The aortic root is of normal size. No abnormalities are identified. Pericardium/Pleural There is no pericardial effusion. Hemodynamics The peak right ventricular systolic pressure is 29 mmHg + RA pressure mmHg. Left ventricular diastolic function is abnormal. Ejection Fraction ?2D Measurements ? Volumes EF(MOD-bp): 29.8 % ?IVSd: 0.98 cm ?LVIDd: 4.5 cm ?RA A4Cs_phl: 13.1 cm2 ?LVIDs: 3.5 cm ?EDV(MOD-bp) Indexed: ?LVPWd: 0.95 cm ? 135.2 ml/m2 ?RWT: 0.42 {ratio} ?ESV(MOD-bp) Indexed: ?LV mass(C)d: 144.9 grams ? 94.9 ml/m2 ?LV mass(C)dI: 231.5 grams/m2 ?Ao root diam: 3.2 cm ?Ao root diam index: 5.1 ?LVOT diam: 1.8 cm Doppler Lat Peak E' [place]: 7.6 cm/sec Med Peak E' [place]: 4.9 cm/sec TR max wellington: 269.5 cm/sec I ?WMSI = 2.56 ? % Normal = 0 ?Segments ??Size X - Cannot ?? 1 - Normal ?? 2 - ? 3 - Akinetic 4 - ?1-2 ? small Interpret ? Hypokinetic ?Dyskinetic ?? 3-5 ? moderate 5 - ? 6-14 ?large Aneurysmal ?15-16 ?? diffuse Procedure Note Kathleen Banda MD - 07/30/2024 [address] [place] [address] Echocardiogram Report Name: KOREY MONTOYA Study Date: 07/30/2024 01:41AM : 1950 Height: 168 cm Age: 74 yrs Weight: 5.9 kg Gender: Male BSA: 0.63 m2 Performed By: Beatris Ching MD Reason For Study: STEMI, VT History: ASCVD, HTN, HLD Interpreting Fellow: Beatris Ching. Interpretation Summary This is a limited study performed by a fellow language and literature division chair to evaluate forcardiogenic shock with impella in. Left ventricle is normal in size. The global systolic function is severelyreduced and visually estimated at 20% on P6 support. There is dense akinesis inthe distribution of the LAD territory and there is global hypokinesis in theremaining segments. The impella is positioned 3.5cm from the aortic annulus. Right ventricle is normal in size. Right ventricular apex is hypokinetic,but global systolic function is probably normal. The RVSP is estimated at 29mmHg + RA pressure. There is at least moderate tricuspid regurgitation. There is mild mitral regurgitation. There is mild aortic regurgitation in the setting of Impella CPplacement. Subcostal views were not obtained due to Zoll pads placement. There is no prior study available for comparison. Procedure Limited - 55836. Suboptimal quality. There is sinus bradycardia. Left Ventricle Left ventricle is of normal size. Left ventricular systolic function isseverely reduced. Left ventricular ejection fraction is estimated visually at 20%.There are segmental wall motion abnormalities. There is global hypokinesis withregional akinesis, see PDF for details. An Impella catheter is present. Right Ventricle The right ventricle is of normal size. There is a catheter in the rightventricle. Right ventricular function is probably normal. The right ventricular apexis hypokinetic. Left Atrium The left atrium is mildly dilated. Right Atrium The right atrium is normal. A catheter is present in the right atrium. Aortic Valve The aortic valve is probably trileaflet. There is mild aorticregurgitation in the setting of Impella CP placement. Mitral Valve There is mild mitral regurgitation. Tricuspid Valve The tricuspid valve is structurally normal. There is moderate tricuspid regurgitation. Pulmonic Valve The pulmonic valve is not well visualized. Great Arteries The aortic root is of normal size. No abnormalities are identified. Pericardium/Pleural There is no pericardial effusion. Hemodynamics The peak right ventricular systolic pressure is 29 mmHg + RA pressuremmHg. Left ventricular diastolic function is abnormal. Ejection Fraction 2D Measurements Volumes EF(MOD-bp): 29.8 % IVSd: 0.98 cm LVIDd: 4.5 cm RA A4Cs_phl: 13.1cm2 LVIDs: 3.5 cm EDV(MOD-bp)Indexed: LVPWd: 0.95 cm 135.2 ml/m2 RWT: 0.42 {ratio} ESV(MOD-bp)Indexed: LV mass(C)d: 144.9 grams 94.9 ml/m2 LV mass(C)dI: 231.5 grams/m2 Ao root diam: 3.2 cm Ao root diam index: 5.1 LVOT diam: 1.8 cm Doppler Lat Peak E' [place]: 7.6 cm/sec Med Peak E' [place]: 4.9 cm/sec TR max wellington: 269.5 cm/sec I WMSI = 2.56 % Normal = 0 SegmentsSize X - Cannot 1 - Normal 2 - 3 - Akinetic 4 - 1-2small Interpret Hypokinetic Dyskinetic 3-5moderate 5 - 6-14large Aneurysmal 15-16diffuse Unknown ECHO ORDERABLES * ABORH RECHECK (07/29/2024 6:43 PM EST) [facility] ABORH Recheck AB POSITIVE 07/29/2024 10:13 PM EST [facility] Blood VENOUS BLOOD SPECIMEN / Unknown Venipuncture / Unknown 07/29/2024 6:43 PM EST 07/29/2024 7:15 PM EST Jay Silverio MD BLOOD BANK LAB ORD ERABLES Performing Organization Address City/[facility]/ZIP Co de Phone Number [facility] [place] [place] [address] * Type and screen ([facility]/JONG/MAGALIE) (07/29/2024 5:56 PM EST) [facility] ABORH Type AB POSITIVE 07/29/2024 9:44 PM EST [facility] PATIENT HISTORY Not Found 07/29/2024 9:44 PM EST [facility] Expires at [id number] on: 08/01/2024 07/29/2024 9:44 PM EST [facility] ANTIBODY SCREEN AUTOMATED Negative 07/29/2024 9:44 PM EST [facility] T&S only valid at [facility] 07/29/2024 9:44 PM EST [facility] Blood VENOUS BLOOD SPECIMEN / Unknown Venipuncture / Unknown 07/29/2024 5:56 PM EST 07/29/2024 6:07 PM EST Narrative [facility] - 07/29/2024 9:44 PM EST This Type and Screen result is only valid at the [facility] Jay Silverio MD BLOOD BANK LAB ORD ERABLES Performing Organization Address City/[facility]/ZIP Co de Phone Number [facility] [place] [place] [address] * EKG 12 Lead (07/29/2024 4:21 PM EST) Only the most recent of2 resultswithin the time period is included. Pathologist [facility] Ventricular rate 72 BPM MUSE SYSTEM Atrial Rate 72 BPM MUSE SYSTEM P-R Interval 168 ms MUSE SYSTEM QRS Duration 82 ms MUSE SYSTEM Q-T Interval 392 ms MUSE SYSTEM QTC Calculated (Bezet) 429 ms MUSE SYSTEM Calculated P [place] 71 degrees MUSE SYSTEM Calculated R [place] 77 degrees MUSE SYSTEM Calculated T [place] 28 degrees MUSE SYSTEM INTERPRETATION Sinus rhythm with Premature supraventricular complexes and Occasional Premature ventricular complexes Low voltage QRS 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) Lateral injury pattern ACUTE SC / STEMI Abnormal ECG When compared with ECG of 29-JUL-2024 13:43, (unconfirmed) Serial changes of evolving Anteroseptal infarct Present Confirmed by MD Marcus, Roverto (1961) on 07/31/2024 5:30:06 AM MUSE SYSTEM 07/29/2024 4:21 PM EST 07/31/2024 5:30 AM EST Jay Silverio MD ECG ORDERABLES Performing Organization Address City/[facility]/ZIP Co de Phone Number MUSE SYSTEM * Blood culture (07/29/2024 4:08 PM EST) Only the most recent of2 resultswithin the time period is included. Blood Culture No growth at 120 hours 08/03/2024 5:01 PM EST [facility] Blood VENOUS BLOOD SPECIMEN / Unknown Venipuncture / Unknown 07/29/2024 4:08 PM EST 07/29/2024 4:15 PM EST Jay Silverio MD MICROBIOLOGY - BLO OD ORDERABLES Performing Organization Address City/[facility] Co de Phone Number [facility] [place] [address] * XR Chest One View (07/29/2024 2:30 PM EST) Only the most recent of3 resultswithin the time period is included. WORKSTATION ID [id number] DH RAD Anatomical Region Laterality Modality Chest N/A Digital Radiogra phy Impressions 07/29/2024 3:21 PM EST 1. ??No pulmonary edema. 2. ??No pleural effusion. 3. ??No pneumothorax. Thank you for letting us participate in the care of this patient. ??If you are a health care provider and have any questions regarding this report, please contact the number below. ??For patients who have questions please contact the health director of career resources that requested your imaging first. ? Electronically signed by: Chris Candelaria MD, [facility] ([phone]), at 07/29/2024 3:21 PM Narrative 07/29/2024 3:21 PM EST EXAMINATION: XR CHEST ONE VIEW CLINICAL HISTORY: new dyspnea s/p STEMI w/revascularization TECHNIQUE: AP 30 degree upright view of the chest COMPARISON: July 29, 2024 FINDINGS: The heart is normal in size and the mediastinum has a normal contour. Both lungs are clear. The costophrenic angles are sharp. There is no pneumothorax. No acute bone abnormalities are present. A left ventricular assist device is present. A pulmonary artery catheter has been placed through the inferior vena cava and extends to the proximal right pulmonary artery. Procedure Note Chris Candelaria MD - 07/29/2024 EXAMINATION: XR CHEST ONE VIEW CLINICAL HISTORY: new dyspnea s/p STEMI w/revascularization TECHNIQUE: AP 30 degree upright view of the chest COMPARISON: July 29, 2024 FINDINGS: The heart is normal in size and the mediastinum has a normal contour. Both lungs are clear. The costophrenic angles are sharp. There is no pneumothorax. No acute bone abnormalities are present. A left ventricular assist device is present. A pulmonary artery catheterhas been placed through the inferior vena cava and extends to the proximalright pulmonary artery. IMPRESSION 1. No pulmonary edema. 2. No pleural effusion. 3. No pneumothorax. Thank you for letting us participate in the care of this patient. If youare a health care provider and have any questions regarding this report,please contact the number below. For patients who have questions please contactthe health director of career resources that requested your imaging first. Electronically signed by: Chris Candelaria MD, [facility]([phone]), at 07/29/2024 3:21 PM Vahe Marvin MD IMG DX ORDERABLES * T[facility] (07/29/2024 2:03 PM EST) Thyroid Stimulating Hormone 0.70 0.27 - 4.20 mcIU/mL 07/29/2024 2:52 PM EST [facility] Blood VENOUS BLOOD SPECIMEN / Unknown Venipuncture / Unknown 07/29/2024 2:03 PM EST 07/29/2024 2:14 PM EST Vahe Marvin MD CHEMISTRY ORDERABLES [facility] [place] [address] * CRP, acute inflammation (07/29/2024 2:03 PM EST) C-Reactive Protein <3.0 <=4.9 mg/L 07/29/2024 2:52 PM EST [facility] Blood VENOUS BLOOD SPECIMEN / Unknown Venipuncture / Unknown 07/29/2024 2:03 PM EST 07/29/2024 2:14 PM EST Vahe Marvin MD CHEMISTRY ORDERABLES Performing Organization Address City/[facility]/ZIP Co de Phone Number [facility] [place] [address] * (ABNORMAL) APTT (07/29/2024 2:03 PM EST) Partial Thromboplastin Time >160(HHH) 25 - 37 sec 07/29/2024 2:56 PM EST [facility] Blood VENOUS BLOOD SPECIMEN / Unknown Venipuncture / Unknown 07/29/2024 2:03 PM EST 07/29/2024 2:13 PM EST Vahe Marvin MD HEMATOLOGY ORDERABLE S [facility] [place] [address] * (ABNORMAL) Prothrombin Time (07/29/2024 2:03 PM EST) Pathologist [facility] Prothrombin Time 14.2(H) 9.4 - 12.5 sec 07/29/2024 2:56 PM EST [facility] International Normalization Ratio 1.3 <=4.9 07/29/2024 2:56 PM EST [facility] Comment: An INR < 2.0 indicates adequate procoagulant activity for hemostasis in most patients without underlying bleeding disorders, though the INR may not adequately reflect hemostatic capacity in patients with liver disease and synthetic impairment. The recommended target INR range for therapeutic anticoagulation is 2.0 - 3.0 for most applications, though lower and higher ranges may be appropriate depending on clinical circumstances. Blood VENOUS BLOOD SPECIMEN / Unknown Venipuncture / Unknown 07/29/2024 2:03 PM EST 07/29/2024 2:13 PM EST Vahe Marvin MD HEMATOLOGY ORDERABLE S [facility] [place] [address] * Hemoglobin A1c (07/29/2024 2:03 PM EST) [facility] Hemoglobin A1c 5.3 4.3 - 5.6 % 07/29/2024 2:41 PM EST [facility] Comment: Per ADA guidelines, without clear symptoms of hyperglycemia or a random plasma glucose >199 mg/dL, a single abnormal A1c measurement cannot be used to diagnose diabetes mellitus. The diagnosis must be confirmed by either 1) a concurrent abnormal fasting plasma glucose or impaired response to oral glucose tolerance testing, or 2) an additional abnormal A1c, impaired fasting plasma glucose, or impaired response to oral glucose tolerance testing on a different day. A1c results obtained on patients with altered red blood cell turnover may not be training representative of glycemic control. Reference Interval: 4.3 - 5.6% 5.7 - 6.4%: Consistent with prediabetes >=6.5%: Consistent with diagnosis of diabetes mellitus Estimated Average Glucose 07/29/2024 2:41 PM EST [facility] Comment:Estimated Average Gl ucose not appropriate for patients over 70 years of age. Blood VENOUS BLOOD SPECIMEN / Unknown Venipuncture / Unknown 07/29/2024 2:03 PM EST 07/29/2024 2:14 PM EST [facility] - 07/29/2024 2:41 PM EST Estimated average glucose (eAG) is calculated from the equation described in: Quinten DM, Rikki J, Reno R, et al. ??Translating the A1C assay into estimated average glucose values. ??Diabetes Care 2008:31(8):5494-0315. Additional resources are available on the ADA website (diabetes.org). Vahe Marvin MD CHEMISTRY ORDERABLES [facility] [place] [address] * Lipid Panel (Reflex Direct LDL) (07/29/2024 2:03 PM EST) Pathologist [facility] Cholesterol, Total 133 mg/dL 07/29/2024 2:52 PM [facility] Comment: Desirable: < 200 mg/dL Borderline High: 200 - 239 mg/dL High: > or = 240 mg/dL Triglyceride 45 mg/dL 07/29/2024 2:52 PM [facility] Comment: Normal: <150 mg/dL Borderline High: 150-199 mg/dL High: 200-499 mg/dL Very High: > or =500 mg/dL HDL Cholesterol 58 mg/dL 4 2:52 PM [facility] Comment:Males: High Risk: <4 0 mg/dL LDL Cholesterol 64 mg/dL 4 2:52 PM [facility] Comment: Desirable: <100 mg/dL Above Desirable: 100-129 mg/dL Borderline High: 130-159 mg/dL High: 160-189 mg/dL Very High: > or =190 mg/dL Note: LDL calculation updated to the NIH LDL formula as of 04/15/2024 Non-HDL Cholesterol 75 mg/dL 07/29/2024 2:52 PM EST [facility] Comment: Desirable: <130 mg/dL Above Desirable: 130-159 mg/dL Borderline High: 160-189 mg/dL High: 190-219 mg/dL Very High: > or = 220 mg/dL Blood VENOUS BLOOD SPECIMEN / Unknown Venipuncture / Unknown 07/29/2024 2:03 PM EST 07/29/2024 2:14 PM EST [facility] - 07/29/2024 2:52 PM EST It is important to review the results of your lipid panel with your health care provider. You can compare your lipid results to the ranges below and whether they are in the desirable range. These ranges are only meant to be used for people without known cardiac disease, history of stroke, or peripheral vascular disease (blockages in the leg arteries or diabetes). If you have one of these conditions, your desirable LDL-C (bad cholesterol) will likely be even lower. ?? ACC/AHA Guidelines (most recently Rolf et al. [facility] 06/15/22): * For individuals with atherosclerotic cardiovascular disease (ASCVD) or LDL >=190 mg/dL, use a high-intensity statin(40-80 mg atorvastatin or 20-40 mg rosuvastatin with goal >=50% LDL reduction) * For individuals with diabetes, age 40-75 without ASCVD, moderate-intensity statin (goal 30-49% LDL reduction); consider high intensity statin for those with increased risk. * For adults without diabetes or ASCVD, aged 40-75 with LDL 70-189 mg/dL, estimate 10 year ASCVD risk with smartphrase ??.ASCVDRISK ??or Dynamed Decisions. If 10 year risk is 7.5%-19.9% (intermediate risk), consider moderate intensity statin based on risk enhancers and patient preference. Consider coronary artery calcium test (CT)if there is concern regarding the benefit of a statin. If ten year risk is >=20%, initiate high-intensity statin. * Evaluate for secondary causes of Triglycerides >500 mg/dL or LDL >190 mg/dL. * Lifestyle modification is a critical component of ASCVD risk reduction. * If not reaching LDL goals on maximally tolerated statin, consider ezetimibe and/or a PCSK9 inhibitor: ?* Target for primary prevention: LDL<100 ?* Target for those with ASCVD or diabetes and 10-year risk >=20%: LDL<70 ?* Target for those with very high risk ASCVD: LDL<55 (Very high risk being the presence of 2 or more of: recent acute coronary syndrome, past ? myocardial infarction, ischemic stroke, symptomatic peripheral artery disease) Vahe Marvin MD CHEMISTRY ORDERABLES [facility] [place] [address] * (ABNORMAL) Comprehensive metabolic panel (07/29/2024 2:03 PM EST) Glucose 243(H) 65 - 199 mg/dL 07/29/2024 3:11 PM EST [facility] Comment:Glucose Concentratio n >=200 mg/dL plus symptoms is consistent with Diabetes Mellitus. Blood Urea Nitrogen 13 10 - 20 mg/dL 07/29/2024 3:11 PM EST [facility] Creatinine 0.88 0.80 - 1.50 mg/dL 07/29/2024 3:11 PM EST [facility] Sodium 138 135 - 145 mMol/L 07/29/2024 3:11 PM EST [facility] Potassium 3.6 3.5 - 5.0 mMol/L 07/29/2024 3:11 PM EST [facility] Chloride 104 98 - 107 mMol/L 07/29/2024 3:11 PM EST [facility] Carbon Dioxide 19(L) 22 - 31 mMol/L 07/29/2024 3:11 PM EST [facility] Anion Gap 15 5 - 15 mMol/L 07/29/2024 3:11 PM EST [facility] Calcium 8.0(L) 8.5 - 10.5 mg/dL 07/29/2024 3:11 PM [facility] Protein, Total 6.0(L) 6.1 - 8.0 g/dL 07/29/2024 3:11 PM [facility] Albumin 3.6 3.2 - 5.2 g/dL 07/29/2024 3:11 PM [facility] Aspartate Aminotransferase 07/29/2024 3:11 PM [facility] Comment:Unable to report due to hemolysis. Alanine Aminotransferase 56(H) 0 - 55 unit/L 07/29/2024 3:11 PM [facility] Alkaline Phosphatase 58 40 - 130 unit/L 07/29/2024 3:11 PM [facility] Bilirubin, Total 0.5 <=1.3 mg/dL 07/29/2024 3:11 PM [facility] Est Glomerular Filtration Rate - Male 91 mL/min/1. 73 m?? 07/29/2024 3:11 PM [facility] Comment: This patient's estimated GFR was calculated using the 2020 CKD-EPI equation. The estimated GFR can vary from the measured GFR by up to 30% in the absence of rapidly changing kidney function. Assessment of the estimated GFR is not appropriate when creatinine concentrations are rapidly changing. For clinical situations in which a more precise estimate of GFR is necessary, consider alternative methods of GFR estimation such as a 24-hour urine creatinine clearance. Assignment of CKD stage 1 - 5 for patients with an eGFR near the transition point between stages may be based on clinical assessment of muscle mass and symptoms in addition to eGFR. Link: eGFR Calculator [employer] Blood VENOUS BLOOD SPECIMEN / Unknown Venipuncture / Unknown 07/29/2024 2:03 PM EST 07/29/2024 2:14 PM EST Vahe Marvin MD CHEMISTRY ORDERABLES [facility] [place] [address] * (ABNORMAL) Blood Gas, Venous POC (07/29/2024 2:01 PM EST) pH, Venous 7.30(L) 7.32 - 7.42 07/29/2024 2:02 PM [facility] PCO2, Venous 42 38 - 58 mmHg 07/29/2024 2:02 PM [facility] PO2, Venous 39 16 - 65 mmHg 07/29/2024 2:02 PM [facility] Bicarbonate, Venous 20.1(L) 22 - 31 mmol/L 07/29/2024 2:02 PM [facility] Base Excess, Venous -6.4(L) 1.9 - 4.5 mmol/L 07/29/2024 2:02 PM [facility] Hemoglobin, Venous 14.2 13.7 - 16.5 g/dL 07/29/2024 2:02 PM [facility] Oxyhemoglobin, Venous 69.3 % 07/29/2024 2:02 PM [facility] Carboxyhemoglobin , Venous 0.8 % 07/29/2024 2:02 PM [facility] Comment: Nonsmokers: 0.5-1.5% COHB ?? Smokers: Variable ??but usually less than 10% ?? Toxic: 20-30% COHB ?? Lethal: Greater than 60% COHB Methemoglobin, Venous 0.3 <=1.5 % 07/29/2024 2:02 PM [facility] Sodium, Venous 137 135 - 145 mmol/L 07/29/2024 2:02 PM [facility] Potassium, Venous 3.6 3.5 - 5.0 mmol/L 07/29/2024 2:02 PM [facility] Chloride, Venous 103 98 - 107 mmol/L 07/29/2024 2:02 PM [facility] Glucose, Venous 229(H) 65 - 199 mg/dL 07/29/2024 2:02 PM [facility] Comment:Glucose Concentratio n >=200 mg/dL plus symptoms is consistent with Diabetes Mellitus. Lactate, Venous 3.1(H) 0.5 - 2.2 mmol/L 07/29/2024 2:02 PM [facility] Ionized Calcium, Venous 1.11(L) 1.15 - 1.33 mmol/L 07/29/2024 2:02 PM [facility] Blood VENOUS BLOOD SPECIMEN / Unknown 07/29/2024 2:01 PM EST 07/29/2024 2:02 PM EST Vahe Marvin MD POINT OF CARE TEST O RDERABLES [facility] [place] [address] * (ABNORMAL) BLOOD GAS, POC (07/29/2024 12:46 PM EST) Only the most recent of2 resultswithin the time period is included. Sodium, POC 139 135 - 145 mmol/L 07/30/2024 7:30 AM [facility] Potassium, POC 3.4(L) 3.5 - 5.0 mmol/L 07/30/2024 7:30 AM [facility] pH, POC 7.33(L) 7.35 - 7.45 07/30/2024 7:30 AM [facility] Ionized Calcium, POC 1.13(L) 1.15 - 1.33 mmol/L 07/30/2024 7:30 AM [facility] pCO2, POC 38 35 - 45 mmHg 07/30/2024 7:30 AM [facility] pO2, POC 94 85 - 104 mmHg 07/30/2024 7:30 AM [facility] Base Excess, POC -6.0(L) -3.0 - 3.0 mmol/L 07/30/2024 7:30 AM [facility] Hematocrit, POC 39.0(L) 40.5 - 48.5 %PCV 07/30/2024 7:30 AM [facility] Hemoglobin, POC 13.3(L) 13.7 - 16.5 g/dL 07/30/2024 7:30 AM EST [facility] Comment:The calculation of h emoglobin from hematocrit assumes a normal MCHC. Bicarbonate, POC 19.8(L) 20.0 - 26.0 mmol/L 07/30/2024 7:30 AM EST [facility] Carbon Dioxide, POC 21(L) 22 - 31 mmol/L 07/30/2024 7:30 AM EST [facility] Blood VENOUS BLOOD SPECIMEN / Unknown 07/29/2024 12:46 PM EST 07/30/2024 7:30 AM EST Vahe Marvin MD POINT OF CARE TEST O RDERABLES Performing Organization Address [facility]/[place] [address] * External Cardiology Result (07/29/2024 10:13 AM EST) Anatomical Region Laterality Modality Other Historical Provider EXTERNAL CARDIOLO GY RESULT * Urine culture (06/25/2024 11:55 AM EDT) Urine Culture No growth 06/26/2024 12:22 PM EDT [facility] Urine URINE SPECIMEN OBTAINED BY CLEAN CATCH PROCEDURE / Unknown 06/25/2024 11:55 AM EDT 06/25/2024 5:18 PM EDT Aubrey Cali MD MICROBIOLOGY - GENER AL ORDERABLES Performing Organization Address City/[facility]/ZIP Co de Phone Number [facility] [place] [address] * COLONOSCOPY (08/30/2023 10:57 AM EST) COLONOSCOPY [facility] Endoscopy Procedure Date: 08/30/2023 10:57 AM ? Patient Name: Korey Montoya ? Date of : 1950 ? Age: 73 ? Order #: [id number] ? Instrument Name: [id number] ? Procedure: ? Colonoscopy Indications: ? Rectal pain Providers: ? Tika Brooks Ty ? Aidan Referring MD: ?Yoel Artis Medicines: ? Midazolam 4.5 mg IV, Fentanyl 175 ? micrograms IV Complications: ? No immediate complications. Procedure: ? Pre-Anesthesia Assessment: ? - See the other procedure note for ? documentation of the pre-procedure ? assessment. ? The procedure, indications, ? benefits, risks and alternatives ? were explained to the patient. ? Specifically discussed were ? potential complications including, ? but not limited to, bleeding, ? perforation, infection, missing a ? cancer, and adverse medication ? reactions. The patient was placed ? in the left lateral decubitus ? position, and a digital rectal exam ? was performed. The Colonoscope was ? inserted in the anus and under ? direct visualization, advanced to ? the terminal ileum, with ? identification of the appendiceal ? orifice and IC valve. Careful ? inspection was made as the ? colonoscope was withdrawn. The ? colonoscopy was somewhat difficult ? due to restricted mobility of the ? colon. The patient tolerated the ? procedure well. The quality of the ? bowel preparation was evaluated ? using the BBPS ([place] Bowel ? Preparation Scale) with scores of: ? Right Colon = 2 (minor amount of ? residual staining, small fragments ? of stool and/or opaque liquid, but ? mucosa seen well), Transverse Colon ? = 2 (minor amount of residual ? staining, small fragments of stool ? and/or opaque liquid, but mucosa ? seen well) and Left Colon = 2 ? (minor amount of residual staining, ? small fragments of stool and/or ? opaque liquid, but mucosa seen ? well). The total BBPS score equals ? 6. The terminal ileum, ileocecal ? valve, appendiceal orifice, and ? rectum were photographed. 12 minute ? withdrawal time. After irrigation ? and suction good views achieved. ? Findings: ? The terminal ileum appeared normal. ? A 4 mm polyp was found in the sigmoid colon. The ? polyp was sessile. The polyp was removed with a cold ? snare. Resection and retrieval were complete. ? Multiple large-mouthed and medium-mouthed diverticula ? were found in the sigmoid colon and descending colon. ? Internal hemorrhoids were found during retroflexion. ? The hemorrhoids were medium-sized. ? Moderate Sedation: ? I was present during the intraservice time as ? documented by the sedation RN. Impression: ?- The examined portion of the ileum ? was normal. ? - One 4 mm polyp in the sigmoid ? colon, removed with a cold snare. ? Resected and retrieved. ? - Diverticulosis in the sigmoid ? colon and in the descending colon. ? - Internal hemorrhoids. Recommendation: ?- Repeat colonoscopy in 7-10 years ? for surveillance if the polyp was ? an adenoma; otherwised consider 10 ? year repeat depending upon overall ? health at that time (he will be ? over 82 then). ? - Discharge patient to home. ? - Patient has a contact number ? available for emergencies. The ? signs and symptoms of potential ? delayed complications were ? discussed with the patient. Return ? to normal activities tomorrow. ? Written discharge instructions were ? provided to the patient. ? - Recommend pediatric scope and ? extended prep with future ? procedures. ? - Follow-up with Yoel Dangelo APRN ? Attending Participation: ? I personally performed the entire procedure. ? Brandan Mcgovern Umer Froilan, 08/30/2023 11:29:25 AM Number of Addenda: 0 Note Initiated On: 08/30/2023 10:57 AM PROVATION 08/30/2023 10:5 7 AM EST Yoel Artis CAN FILLER GENERAL SURGICAL ORD ERABLES PROVATION from Last 3 Months or Most Recently Relevant to Health Maintenance Advance Directives * Attempt Cardiopulmonary Resuscitation - Inpatient (Latest Code Status on File) Date Activated Date Inactivated Comments 07/29/2024 2:01 PM 08/04/2024 7:34 PM Question Answer Comments Code Status decision made by: Patient Content of discussion: pre-arrest limitations Care Teams Android Ui Developer Relationship Specialty Start Date End Date Alexia Mtz APRN [address] [place] [id number] PCP - General Family Medicine 07/30/24
--- OUTSIDE RECORDS SUMMARY | 2024-08-22 11:33 | XMS_ITS | Encounter Summary ---
Author Organization [facility] Address [facility] [place] [address] Care Team Providers Care Employee Health Rn Name Role Phone WesternportAlexia shell Shun ALCALA Primary Care Provider [phone] Reason for Referral * Consultation (Routine) - Authorized Specialty Diagnoses / Procedures Referred By Contac t Referred To Contact Cardiology Diagnoses HFrEF (heart failure with reduced ejection fraction) [facility] S/P D/C acute HFrEF Alex Small MD [facility] [place] [address] Mushtaq Murphy APRN [facility] [place] [address] Referral ID Status Reason Start Date Expiration Date Visits Requested Visits Authorized [id number] Authorized Consult, Test & Treat 08/04/2024 08/04/2025 1 1 * Consultation (Routine) - Authorized Specialty Diagnoses / Procedures Referred By Contac t Referred To Contact Cardiology Diagnoses ST elevation myocardial infarction involving left anterior descending (LAD) coronary artery Yrn Ward MD [facility] [place] [address] Cardiac Rehab, [address] [place] [address] Referral ID Status Reason Start Date Expiration Date Visits Requested Visits Authorized [id number] Authorized Consult, Test & Treat 08/04/2024 01/31/2025 36 36 Reason for Visit * Auth/Cert (Routine) Specialty Diagnoses / Procedures Referred By Contac t Referred To Contact Diagnoses STEMI (ST elevation myocardial infarction) STEMI Procedures ER IPI Vahe Marvin MD [facility] [place] [place] [address] [facility] Referral ID Status Reason Start Date Expiration Date Visits Re quested Visits Authorized [id number] 1 1 Encounter Details Date Type Department Care Team (Latest Contact Info) Description 07/29/2024 11:45 AM EST - 08/04/2024 5:00 PM EST Hospital Encounter Cardiovascular [place] [phone] Vahe Marvin MD [facility] [place] [address] Jay Silverio MD [facility] [place] [address] Krystal Parker MD [facility] [place] [address] Bridgette Stauffer MD [facility] [place] [address] Yrn Ward MD [facility] [place] [address] Alex Small MD [facility] [place] [address] ST elevation myocardial infarction involving left anterior descending (LAD) coronary artery; HFrEF (heart failure with reduced ejection fraction) Discharge Disposition: Home Social History Tobacco Use Types Packs/Day Years Used Date Smoking Tobacco: Former Cigarettes Smokeless Tobacco: Never Alcohol Use Standard Drinks/Week Comments Not Currently 0 (1 standard drink = 0.6 oz pur e alcohol) [facility] Utilities Answer Date Recorded In the past 12 months has th e electric, gas, oil, or water company threatened to shut off services in your [...] any time in the past [address] [facility], were you homeless or living in a senior living (including now)? No 07/30/2024 IPV Inpatient Questions Answer Date Recorded Does Anyone [...] Orientation Straight 06/21/2023 9: 42 AM EDT documented as of this encounter Last Filed Vital Signs Vital Sign Reading [...] Mass Index 21.81 07/30/2024 2:49 AM EST documented in this encounter Discharge Summaries * Alex Small MD - 08/04/2024 3:26 PM EST Discharge Summary Patient Name: Korey Montoya Patient Age: 74 y.o. Language: Scottish Race: White Ethnicity: Not nor Admit date: 07/29/2024 Discharge date and time: 08/04/2024 4:01 PM Attending Physician: Alex Small MD Discharge Physician: Alex Small MD Follow-up Recommendations for Providers: # STEMI, status post PCI to LAD # ASCVD # Cardiogenic shock-resolved The patient???s medications at discharge include: aspirin, statin, beta elvis, STELLA inhibitor, Plavix and PRN nitroglycerin. # Ischemic cardiomyopathy, EF of 33%. # Acute HFrEF He was diuresed with IV lasix. He was discharged at 135 lb. GDMT - Losartan 25 mg daily - Metoprolol Succinate 25 mg daily - Spironolactone 12.5 mg daily - Was on Jardiance 10 mg daily. Morris estimate is high. Dced with Hattie instead. - Referral to heart failure team for follow up. Inpatient Provider Contact Information: ALEX SMALL POORNIMA KOSTOJCHIN, YRN SILVERIO, KRYSTAL LEI For questions regarding this document or issues relating to this hospitalization on the Medical Service, please contact your inpatient physician through the [facility] Special[facility] . Issues afterhours and on weekends will be handled by the Hospitalist staff on-call. Discharge Diagnoses (Hospital Problems) and Secondary Diagnoses (Chronic Problems): Active Hospital Problems Diagnosis STEMI (ST elevation myocardial infarction) Resolved Hospital Problems No resolved problems to display. Active Non-Hospital Problems Diagnosis Dizziness Operations/Major Procedures: Operations: Procedure(s): CARDIAC CATHETERIZATION 07/31/2024 Procedure(s): CARDIAC CATHETERIZATION 07/31/2024 History of Presentation from the admission H&P: Korey Montoya is a 74 y.o. male w/ PMH of hypertension, HLD, and BPH who presents for chief concern of chest pain after being found to have ST elevations on EKG. Patient transferred via air ambulance to [facility] on 07/29 for LHC and LOW to LAD for 100% occlusion. 2 hours episode yesterday of chest pain that spontaneously resolved. Then awoke this AM at approximately 0600 asymptomatic. Then suddenly at 6:30 began having substernal chest pain along with bilateral arm discomfort. Attempted to burp and vomit, concerning this was due to gas, noting pain was severe 8/10. Aching in character. Waited for pain to spontaneously resolve (noting previous episodes of chest pain without activity). As pain did not resolve, presented to OSH at approximately 9:30 AM. Hewas Found to have anterior, inferior, and lateral ST elevation on EKG. Was transferred via air ambulance to [facility] for further management and LHC demonstrated 100% occlusion. No significant RCA, LMCA, or LCX disease. LOW placed in LAD with some residual distal disease meriting placement of overlapping distal stent. TTE showed apical akinesis and inferior hypokinesis with EF 20%. RHC showed elevated filling pressures. Impella placed and P-level 6 at time of transfer to [facility]. CI initially 1.97, improved to 2.2 After impella. Received about 3 L of fluid during procedural course. Patient initially required norepinephrine 30, epinephrine 10, and vasopressin 0.04 for hemodynamic support, which was weaned upon arrival to [facility] to norepinephrine 20 and levo 0.04 (epinephrine discontinued) Patient reports ongoing substernal chest pain/pressure at time of arrival to [facility] at approximately 1400 that nearly abated during initial 15 minutes following arrival. Hospital Course: Patient initially required norepinephrine, epinephrine, and vasopressin for hemodynamic support, which was weaned upon arrival to [facility] to norepinephrine 20 and levo 0.04 (epinephrine discontinued) and eventually was on dobutamine which was discontinued, 08/01/2020 4 AM. The patient was weaned off pressors and was downgraded to the floor on 08/02. # STEMI, status post PCI to LAD # ASCVD # Cardiogenic shock-resolved status post PCI to LAD on 07/31/24. This lesion was stented with a drug eluting stent and the patient will need to continue on ASA and plavix for the next year. Access was via right RADIOLOGY THERAPIST and this sitewas clean, dry and intact on the day of discharge. The patient???s medications at discharge include: aspirin, statin, beta elvis, STELLA inhibitor, Plavix and PRN nitroglycerin. # Ischemic cardiomyopathy, EF of 33%. # Acute HFrEF He was diuresed with IV lasix. He was discharged at 135 lb. GDMT - Losartan 25 mg daily - Metoprolol Succinate 25 mg daily - Spironolactone 12.5 mg daily - Was on Jardiance 10 mg daily. Morris estimate is high. Consider beginning sglt2 as out patient. - Referral to heart failure team for follow up. Vital Signs at Discharge: BP: 103/58, Heart Rate: 71, Temp: 37.2 ??C (99 ??F), Resp: 18, Height: 167.6 cm (5' 6) (07/30/24 0249) Weight: 61.3 kg (135 lb 2.3 oz) (08/03/24 0400) Functional and Cognitive Status: alert and oriented. Stable for discharge. Important Studies and Lab Data: Labs: Last wbc, hgb, hct plt Recent Labs 08/04/24 0608 WBC 7.27 HGB 11.6* HCT 34.8* Last 3 wbc, hgb, hct plt Recent Labs 08/04/24 0608 08/03/24 0516 08/02/24 0420 WBC 7.27 7.85 8.51 HGB 11.6* 11.8* 12.2* HCT 34.8* 35.9* 35.8* PLATELET 178 142* 111* Last 3 Lytes Recent Labs 08/04/24 0608 08/03/24 0516 08/02/24 0420 NA 138 137 139 K 4.3 4.5 4.0 CL 107 106 108* CO2 21* 23 BUN 14 16 12 CREATININE 1.07 0.85 0.90 Last 3 LFTs Recent Labs 07/31/24 0108 07/29/24 1403 AST 192* -- ALT 59* 56* ALKPHOS 46 58 BILITOT 0.4 0.5 BILIDIR <0.2 -- Last Ca, Mg, Phos Recent Labs 08/04/24 0608 07/31/24 0108 07/30/24 1508 CALCIUM 8.5 < > 7.9* PHOS -- -- 2.1* MAGNESIUM 0.85 < > 0.90 < > = values in this interval not displayed. Last 3 Coags Recent Labs 07/29/24 1403 PT 14.2* INR 1.3 PTT >160* Last 3 ProBNP, Trop, CK No results for input(s): CK, TROPONINT, PROBNP in the last 168 hours. Last 3 TFT Recent Labs 07/29/24 1403 TSH 0.70 Last 3 Lipids Recent Labs 07/29/24 1403 CHLPL 133 HDL 58 LDLCHOL 64 TRIG 45 Last 3 HgbA1C Recent Labs 07/29/24 1403 HA1C 5.3 Last CRP, SEDRATE Recent Labs 07/29/24 1403 CRP <3.0 Last 3 CBC Recent Labs 08/04/24 0608 08/03/24 0516 08/02/24 0420 WBC 7.27 7.85 8.51 Discharge Conditions/Prognosis: stable Discharge to: home Updated Allergies/ADRs: No Known Allergies Immunizations Given this Hospitalization: There is no immunization history for the selected administration types on file for this patient. Discharge Medications: Your Medications New Medications Dose Details aspirin EC 81 mg EC () tablet Take 1 tablet by mouth daily. Start taking on: August 05, 2024 81 mg Quantity: 30 tablet Refills: 3 atorvastatin 80 mg tablet Commonly known as: Lipitor Take 1 tablet by mouth every evening. 80 mg Quantity: 90 tablet Refills: 3 clopidogreL 75 mg tablet Commonly known as: Plavix Take 1 tablet by mouth daily. Start taking on: August 05, 2024 75 mg Quantity: 90 tablet Refills: 3 dapagliflozin propanediol 10 mg tablet Commonly known as: Farxiga Take 1 tablet by mouth daily for 60 days. 10 mg Quantity: 30 tablet Refills: 1 metoprolol succinate XL 25 mg ER 24 hr tablet Commonly known as: Toprol-XL Take 1 tablet by mouth daily. Start taking on: August 05, 2024 25 mg Quantity: 30 tablet Refills: 12 nitroGLYcerin 0.4 mg sublingual tablet Commonly known as: Nitrostat Place 1 tablet under the tongue every 5 minutes as needed for Chest pain. Replaces: nitroGLYcerin 400 mcg/spray Coleridge, Non-Aerosol 0.4 mg Quantity: 90 tablet Refills: 12 spironolactone 25 mg tablet Commonly known as: Aldactone Take 0.5 tablets by mouth daily for 90 days. Start taking on: August 05, 2024 12.5 mg Quantity: 15 tablet Refills: 2 Continued medications, unchanged Dose Details losartan 25 mg tablet Commonly known as: Cozaar Take 25 mg by mouth daily. 25 mg Refills: 0 Psyllium Seed-Sucrose Powder Commonly known as: 0 Take by mouth. Refills: 0 tamsulosin 0.4 mg capsule Commonly known as: Flomax Take 0.8 mg by mouth daily. 0.8 mg Refills: 0 STOPPED Medications nitroGLYcerin 400 mcg/spray Coleridge, Non-Aerosol Commonly known as: NITROLINGUAL Replaced by: nitroGLYcerin 0.4 mg sublingual tablet simvastatin 20 mg tablet Commonly known as: Zocor Smoking Status at Discharge: Social History Tobacco Use Smoking Status Former Types: Cigarettes Smokeless Tobacco Never Instructions Given to Patient at Discharge: Patient Instructions You underwent a cardiac catheterization at which time a stent was placed to LAD coronary artery. In order to protect your stent from blood clots forming, you will need to remain on two antiplatelet medications called aspirin and plavix for a minimum of one year. After this time, your water supervisor will determine if you need to continue on both blood thinners, or if either can be stopped. You will likely be on aspirin life-long. You are on a beta elvis called metoprolol which will help reduce workload on your heart, as well as a statin called atorvastatin which will help reduce your cholesterol as well as help to reduce inflammation in your heart arteries. You were provided with a supply of sublingual nitroglycerin. Keep it with you at all times. If you have angina symptoms, such as chest pain or pressure, sit down and rest. Take the first dose of nitroglycerin and let it melt under your tongue. If symptoms go away, do not take any additional. If your symptoms get worse or are not getting better within 5 minutes, take a second nitro tab and call 911 right away. Stay on the phone. The emergency honing machine set up operator will tell you what to do. Nitroglycerin is an emergency use medication. If you are taking this more than once in a week please alert your provider. Nitroglycerin in the original bottle is good for 1 year once the bottle is opened or until the date on the bottle is not used. If the bottom of the bottle is obscured by powder,or the label falls of discard the nitroglycerin and get a new bottle. You may resume light activity such as walking after your discharge. Do not do any strenuous activity for the first week after your catheterization, including no lifting anything over 10 lbs. This is to help protect your cardiac cath access site and to continue to let it heal properly. You may shower, but do not submerge your cardiac cath access site in water for 1 week (no tubs, hot tubs, lakes, or pools). You may resume driving 48 hours after your catheterization if you were driving prior to your hospitalization. The ultrasound of your heart also showed that your heart muscle has weakened. You were started on abeta elvis called metoprolol which will help reduce workload on your heart. You are also on losartan , a medication often used to decrease blood pressure, but also works to decrease work load on the heart. The applies for spironolactone. These medications all work to help improve and preserve normal heart shape, size, and function. You will need to limit sodium in your diet. We suggest you avoid adding salt to any of your food, and actively monitor the salt content on the labels of the food you buy. Your total salt intake in a 24 hour period should not exceed 2,000 grams. Once at home, you will need to weigh yourself without clothing at the same time each day. Record your weight. Call your doctor if you have a sudden weight gain, such as more than 2 to 3 pounds in a day or 5 pounds in a week. (Your doctor may suggest a different range of weight gain.) A sudden weight gain may mean that your heart failure is getting worse. Your weight on day of discharge is 135lbs. Call your doctor if: Chest pain, shortness of breath, pain or swelling in legs occurs. If you have non-emergent questions between now and the time of your follow up appointments: During 8am-5pm Tuesday through Tuesday call [phone] to speak with a nurse in the cardiology clinic All other times call [phone] and ask to speak to the spray painting machine operator customer operations associate. Follow up Appointments: PCP Alexia Mtz, PROGRAM/MUSIC DIRECTOR [phone]. Please call to establish a follow up appointment within 1-2 weeks of discharge. Cardiology. Referral to heart failure has been sent. General Instructions None Future Appointments and Orders Future Orders Complete By Expires Referral to Cardiac Rehab [ODK893 Custom] As directed Process Instructions: If no progress note charted, please enter Clinical details in comments. Scheduling Instructions: Questions: My question or request is: STEMI, PCI- cardiac rehab at [facility] Referral to Cardiology [REF12 Custom] As directed Process Instructions: If no progress note charted, please enter Clinical details in comments. Scheduling Instructions: Questions: My question or request is: acute HFrEF Discharge References/Attachments None > 30 minutes spend on day of discharge chart review, patient counseling, and documentation. Alex Small MD 08/04/2024 documented in this encounter Discharge Instructions * Patient Instructions* Alex Small MD - 08/04/2024 3:51 PM EST You underwent a cardiac catheterization at which time a stent was placed to LAD coronary artery. In order to protect your stent from blood clots forming, you will need to remain on two antiplatelet medications called aspirin and plavix for a minimum of one year. After this time, your water supervisor will determine if you need to continue on both blood thinners, or if either can be stopped. You will likely be on aspirin life-long. You are on a beta elvis called metoprolol which will help reduce workload on your heart, as well as a statin called atorvastatin which will help reduce your cholesterol as well as help to reduce inflammation in your heart arteries. You were provided with a supply of sublingual nitroglycerin. Keep it with you at all times. If you have angina symptoms, such as chest pain or pressure, sit down and rest. Take the first dose of nitroglycerin and let it melt under your tongue. If symptoms go away, do not take any additional. If your symptoms get worse or are not getting better within 5 minutes, take a second nitro tab and call 911 right away. Stay on the phone. The emergency honing machine set up operator will tell you what to do. Nitroglycerin is an emergency use medication. If you are taking this more than once in a week please alert your provider. Nitroglycerin in the original bottle is good for 1 year once the bottle is opened or until the date on the bottle is not used. If the bottom of the bottle is obscured by powder,or the label falls of discard the nitroglycerin and get a new bottle. You may resume light activity such as walking after your discharge. Do not do any strenuous activity for the first week after your catheterization, including no lifting anything over 10 lbs. This is to help protect your cardiac cath access site and to continue to let it heal properly. You may shower, but do not submerge your cardiac cath access site in water for 1 week (no tubs, hot tubs, lakes, or pools). You may resume driving 48 hours after your catheterization if you were driving prior to your hospitalization. The ultrasound of your heart also showed that your heart muscle has weakened. You were started on abeta elvis called metoprolol which will help reduce workload on your heart. You are also on losartan , a medication often used to decrease blood pressure, but also works to decrease work load on the heart. The applies for spironolactone. These medications all work to help improve and preserve normal heart shape, size, and function. You will need to limit sodium in your diet. We suggest you avoid adding salt to any of your food, and actively monitor the salt content on the labels of the food you buy. Your total salt intake in a 24 hour period should not exceed 2,000 grams. Once at home, you will need to weigh yourself without clothing at the same time each day. Record your weight. Call your doctor if you have a sudden weight gain, such as more than 2 to 3 pounds in a day or 5 pounds in a week. (Your doctor may suggest a different range of weight gain.) A sudden weight gain may mean that your heart failure is getting worse. Your weight on day of discharge is 135lbs. Call your doctor if: Chest pain, shortness of breath, pain or swelling in legs occurs. If you have non-emergent questions between now and the time of your follow up appointments: During 8am-5pm Tuesday through Tuesday call [phone] to speak with a nurse in the cardiology clinic All other times call [phone] and ask to speak to the spray painting machine operator customer operations associate. Follow up Appointments: PCP Alexia Mtz, PROGRAM/MUSIC DIRECTOR [phone]. Please call to establish a follow up appointment within 1-2 weeks of discharge. Cardiology. Referral to heart failure has been sent. documented in this encounter Medications at Time of Discharge Medication Sig Dispensed Refills Start Date End Date aspirin EC 81 mg EC (DR) tablet Take 1 tablet by mouth daily. 30 tablet 3 08/05/2024 atorvastatin (Lipitor) 80 mg tablet Take 1 tablet by mouth every evening. 90 tablet 3 08/04/2024 clopidogreL (Plavix) 75 mg tablet Take 1 tablet by mouth daily. 90 tablet 3 08/05/2024 metoprolol succinate XL (Toprol-XL) 25 mg ER 24 hr tablet Take 1 tablet by mouth daily. 30 tablet 12 08/05/2024 spironolactone (Aldactone) 25 mg tablet Take 0.5 tablets by mouth daily for 90 days. 15 tablet 2 08/05/2024 11/03/2024 nitroGLYcerin (Nitrostat) 0.[address] 1 tablet under the tongue every 5 minutes as needed for Chest pain. 90 tablet 12 08/04/2024 dapagliflozin propanediol (Farxiga) 10 mg tablet Take 1 tablet by mouth daily for 60 days. 30 tablet 1 08/04/2024 10/03/2024 tamsulosin (Flomax) 0.4 mg capsule Take 0.8 mg by mouth daily. 08/28/2023 losartan (Cozaar) 25 mg tablet Take 25 mg by mouth daily. 04/17/2023 Psyllium Seed-Sucrose (0) Powder Take by mouth. documented as of this encounter Progress Notes * Tonya Watson RN - 08/04/2024 3:30 PM ESTSummary: Discharge 74 y/o male recovering from STEMI complicated by cardiogenic shock requiring Impella support. Pt tolerated new medications, no orthostatic changes despite 20pt decrease in BP. Ambulatory off the unit, including 20+ stairs without symptoms. Discharge instructions reviewed in significant detail including medication MOA and side effects, follow up appointments and instructions to call 911 if syncope, chest pain, SOB or sudden unprovoked diaphoresis occurs. Literature about heart failure, including signs and symptoms of disease progression and medication management are explained. Pt states he understand discharge instructions and states that all questions have been answered. Instructions reviewed with family present, Pt will discharge directly home. Neuro: CAOx4, no neuro deficits, no asymmetry, ambulatory without assisatnce Cardiac: NSR, MAP >55mmHg, no orthostatic changes. Pulm: lungs bilat clear, no cough /GI: moving bowels and bladder appropriately. * Tonya Watson RN - 08/03/2024 6:43 PM EST 74 y/o male recovering from STEMI complicated by cardiogenic shock requiring Impella. Plan to discharge home tomorrow. Vitals stable Tolerated initiation of heart failure medications today, ambulated independently multiple times, provided literature on management of heart failure including signs and symptoms that require follow upcare. Family at bedside, very supportive * Zaida Dubose, PT - 08/03/2024 2:03 PM EST Physical Therapy Note Treatment # 2 Patient profile: Korey Montoya is a 74 y.o. male w/ PMH of hypertension, HLD, and BPH who presents for chief concern of chest pain after being found to have ST elevations on EKG. Patient transferred via air ambulance [place] [facility] [place] for LHC and LOW to [facility] for 100% occlusion Social History: Pt lives with his in a 1 level home with 2 NAOMI. 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 He drives. home to assist as needed. Precautions/Special Considerations: At risk to fall; recent STEMI Mobility and Positioning Recommendations: OOB to chair supervision; no device Pt to ambulate 3-4x/daily with supervision; no device. Please encourage up to chair for meal times as able. Pt seen this AM in the [facility]. Pt in the chair at start of session; in the chair at end of session. Pain: 0/10 Vitals: 120/81 90's bpm 98% on RA IS: 2500 mL Mental Status: A & O x 4. Strength/ROM: B LE 5/5 Transfers: Sit to stand: indep; no device Stand to sit: indep Pt ambulated 300 ft with 1 seated rest break after 150 ft, supervision, no LOB. Stairs: Up and down 6 stairs with rail and supervision Education: safety; pacing; role of PT; IS Patient status, treatment, and mobility recommendations discussed with nursing Assessment: Fahad was seen this AM to clear for home d/c. He is mobilizing without a device with supervision. Good balance. He performed steps today with supervision. Vitals remained stable with all mobility. He is safe for home d/c from PT standpoint. Recommend Cardiac rehab as an outpt. Plan: Monitor until d/c Discharge Recommendations: home with Consult Recommendations: Cardiac rehab Equipment needs: none Goals: To be achieved by 08/05/24--met Pt. to perform bed mobility independently. Pt. to perform sit to stand transfers independently using no assistive device. Pt to perform bed to chair/commode transfers independently using no assistive device. Pt. to ambulate 160 feet independently using a no assistive device. Pt. to ambulate up/down 2 step/stairs using one rail with supervision. Family or caregiver to demonstrate understanding of therapeutic interventions to support the care of the patient. Total time: 35 (tef) minutes Time IN/OUT: 2560-6049 ZAIDA DUBOSE PT Pager: [phone] Physical Therapy Inpatient Rehabilitation Department * Yrn Ward MD - 08/03/2024 10:38 AM EST [facility] - [facility] DAILY PROGRESS NOTE Page [phone] to reach a provider 04/04 Admit Date: 07/29/2024 Encounter Date August 03, 2024 Anticipated Discharge Date: 08/03/2024 Hospital Day: 5 Active Hospital Problems Diagnosis STEMI (ST elevation myocardial infarction) Resolved Hospital Problems No resolved problems to display. 24 Hour Events/Subjective: - NAEON - Reports that has some mild residual BOLTON, though denies chest pain, palpitations, nausea, vomiting. - vss, SBP 100-110's; HR 60-80; POX >96 RA - Metoprolol transitioned to succinate 25 qd - Initiate Spironolactone and Jardiance today.- Will watch for one day. - Anticipate discharge tomorrow Medications: Scheduled Meds: metoprolol succinate XL 25 mg Oral Daily spironolactone 12.5 mg Oral Daily losartan 25 mg Oral Daily enoxaparin 40 mg Subcutaneous Nightly tamsulosin 0.4 mg Oral Daily melatonin 6 mg Oral Nightly aspirin EC 81 mg Oral Daily atorvastatin 80 mg Oral QPM clopidogreL 75 mg Oral Daily Continuous Infusions: PRN Meds:.influenza vaccine (65 yrs +), acetaminophen, glucose 40% oral geL OR dextrose OR glucagon Objective: Last value Range last 24 hrs Temp: 36.5 ??C (97.7 ??F) Temp: [36.5 ??C (97.7 ??F)-36.8 ??C (98.2 ??F)] Heart Rate: 72 Heart Rate from SpO2: 71 bpm Heart Rate: [61-81] BP: 118/73 BP: (93-118)/(62-84) Resp: 16 Resp: [12-24] SpO2: 96 % SpO2: [95 %-98 %] Height: 167.6 cm (5' 6) Weight: 61.3 kg (135 lb 2.3 oz) Admit weight: 64.1 kg Patient Vitals for the past 168 hrs: Weight 08/03/24 0400 61.3 kg (135 lb 2.3 oz) 08/02/24 0425 62.3 kg (137 lb 5.6 oz) 07/30/24 0513 65.4 kg (144 lb 2.9 oz) 07/29/24 1320 64.1 kg (141 lb 5 oz) Intake/Output Summary (Last 24 hours) at 08/03/2024 1038 Last data filed at 08/03/2024 1000 Gross per 24 hour Intake 600 ml Output 1115 ml Net -515 ml Physical Exam: Gen: NAD, HEENT: NC/AT, no scleral icterus; mmm Heart: rrr, s1 and s2 normal, no m Chest: cbs b/l; no crackles or wheezing Abd: s/nt/nd BS+; Ext: no le edema Skin: warm Labs: Recent Labs 08/03/24 0516 08/02/24 0420 08/01/248 07/31/2410707/30/24210 WBC 7.85 8.51 8.51 10.25* 11.25* HGB 11.8* 12.2* 11.2* 11.2* 12.2* HCT 35.9* 35.8* 33.8* 33.9* 37.1* PLATELET 142* 111* 94* 109* 166 MCV 81.0* 81.2* 82.0* 82.1* 82.4* Recent Labs 08/03/24 0516 08/02/240 08/01/24203808/01/2481908/01/2441707/31/2410707/30/24200207/30/24 1508 07/30/2421007/29/24201007/29/24 1403 NA 137 139 -- -- 137 140 -- 141 < > -- 138 CL 106 108* -- -- 108* 110* -- 109* < > -- 104 CO2 21* 23 -- -- 21* 24 -- 21* < > -- 19* K 4.5 4.0 4.0 4.0 3.9 4.1 < > 3.4* < > 4.1 3.6 MAGNESIUM 0.89 0.79 -- -- 0.74 0.89 -- 0.90 < > -- 0.70 PHOS -- -- -- -- -- -- -- 2.1* -- 2.1* 2.5 CALCIUM 8.3* 8.1* -- -- 7.7* 7.7* -- 7.9* < > -- 8.0* BUN 16 12 -- -- 8* 11 -- 13 < > -- 13 CREATININE 0.85 0.90 -- -- 0.82 0.96 -- 1.01 < > -- 0.88 < > = values in this interval not displayed. Coags Recent Labs 07/29/24 1403 INR 1.3 PT 14.2* PTT >160* Cardiac Markers Recent Labs 07/30/24 0809 07/29/24 2231 07/29/24201007/29/24 1652 07/29/24 1403 TROPONINTHS 8,651* >10,000* >10,000* >10,000* >10,000* Endocrine Recent Labs 07/29/24 1403 TSH 0.70 HA1C 5.3 Recent Labs 07/29/24 1403 CHLPL 133 TRIG 45 HDL 58 LDLCHOL 64 Recent Labs 08/03/24 0516 08/02/24 0747 08/02/24 0420 08/01/24 2035 08/01/24 1655 08/01/24 1242 08/01/24 0744 08/01/24 0418 07/31/24 2041 07/31/24 1104 07/31/24 0747 07/31/24 0108 07/30/24200207/30/24 1823 GLUCOSE 98 -- 110 -- -- -- -- 107 -- -- -- < > -- -- POCGLU -- 89 -- 112 99 130 86 -- 73 82 82 -- 86 93 < > = values in this interval not displayed. EK07/29/24 Sinus rhythm with Premature supraventricular complexes and Occasional Premature ventricular complexes Low voltage QRS 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) Lateral injury pattern ACUTE NM / STEMI Abnormal ECG When compared with ECG of 29-JUL-2024 13:43, (unconfirmed) Serial changes of evolving Anteroseptal infarct Present Confirmed by MD Marcus, Roverto ([id number]) on 07/31/2024 5:30:06 AM TTE 07/30/24 Interpretation Summary Left ventricle is severely dilated. [...] Compared to the overnight study by the customer operations associate fellow the impella position is stable. 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 [facility] 07/29/24 Conclusions: * One vessel coronary artery disease (LAD) * Mild pulmonary hypertension * Elevated pulmonary capillary wedge pressure * Successful stent insertion of the proximal LAD lesion * See Dual Antiplatelet (DAPT) Recommendations above * Successful impella placement for cardiogenic shock. Telemetry: I have personally reviewed and interpreted the telemetry from the last 24 hours. [facility] Assessment: ASSESSMENT: Korey Montoya is a 74 y.o. male w/ PMH of hypertension, HLD, and BPH who presents for chief concern of chest pain after being found to have ST elevations on EKG. Patient [place] [facility] [place] LHC and LOW to LAD for 100% occlusion. TREATMENT PLAN: # STEMI, status post PCI to LAD # ASCVD # Ischemic cardiomyopathy, EF of 33%. HFrEF # Cardiogenic shock-resolved -Patient needed inotropic and pressor support on presentation, currently off dobutamine for the last 24 hours. Status post left heart catheterization, 07/29/2024, LOW to LAD for 100% occlusion. Currently off the Impella, continue with aspirin 81 mg daily, Plavix 75 mg daily, atorvastatin 80 mg daily. To continue with dual antiplatelet therapy for at least 1 year, will need outpatient follow-up with cardiology and 2D echo cardiogram outpatient. LDL-64, A1c-5.3 Patient is currently hemodynamically stable on room air. Heart rates ranging between 60s to 90s, will start on metoprolol tartrate - Metoprolol succinate 25 mg QD On losartan 25 mg daily, blood pressures ranging between 100s to 130s systolic, stable renal function, uptitrate as tolerated.e. -start spironolactone 12.5 mg today - start Empagliflozin 10 mg Qd today -Was on amiodarone infusion which has been discontinued. -Did receive Lasix IV, 40 mg x 1, 20 mg x 1, last dose, 08/01/2024. Patient is currently euvolemic,no indication for diuretics at this time. # Hypertension # Hyperlipidemia # BPH Continue with losartan 25 mg daily, home dose, tamsulosin 0.4 mg daily, was on pravastatin at home,currently on atorvastatin, will continue the same. # DVT prophylaxis-Lovenox # CODE STATUS-full code # Cardiac diet # Disposition-likely discharge in a.m. Disposition: Discharge Planning: AM-PAC Basic Mobility Raw Score: 22 PT: Anticipated Discharge Disposition (PT): home with supervision Anticipated Equipment Needs at Discharge (PT): to be determined OT: PCP Alexia Mtz, FREDRICK [phone] * Zaida Dubose, PT - 08/02/2024 2:08 PM EST Physical Therapy Evaluation Patient profile: Korey Montoya is a 74 y.o. male w/ PMH of hypertension, HLD, and BPH who presents for chief concern of chest pain after being found to have ST elevations on EKG. Patient transferred via air ambulance [place] [facility] [place] for LHC and LOW to LAD for 100% occlusion Social History: Pt lives with his in a 1 level home with 2 NAOMI. 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 He drives. home to assist as needed. Precautions/Special Considerations: At risk to fall; recent STEMI Mobility and Positioning Recommendations: OOB to chair with 1 cg assist; rolling walker Pt to ambulate 3-4x/daily with 1 assist; walker or trial without device Please encourage up to chair for meal times as able. Pt seen for evaluation today in the [facility]. Pt in the bed at start of session; in the chair at end ofevaluation. Pain: 0/10 at rest, pain with cough Vitals: 123/70 supine; 85/68 initially upon standing; recovered to 115/68 in sitting. 132/82 with ambulation. 90's bpm 97% on RA IS: 2500 mL Mental Status: A & O x 4. Tearful. Follows commands. Moves quickly. Strength/ROM: B LE 4/5 Bed mobility: Supine to sit: indep Sit to supine: not assessed Transfers: Sit to stand: cg assist to rolling walker Stand to sit: cg assist to rolling walker Pt ambulated 160 ft with 1 seated rest break, Cg assist x 1 Education: safety; pacing; role of PT; IS Patient status, treatment, and mobility recommendations discussed with nursing Assessment: Korey Montoya was seen today for physical therapy evaluation. Pt presents with decreased cardiovascular endurance/activity tolerance, hemodynamic instability, impaired breathing mechanics, impaired cough, and impaired skin integrity. These impairments currently are limiting pt's ability to perform functional mobility tasks, including, bed mobility, transfers, balance tasks, ambulation, and stair negotiation . Pt ambulated around the unit on RA today with rolling walker. He fatigues with mobility but vitals stable. Anticipate he will make gains over the coming days and be safe for home d/c once medically ready. Plan: Pt will benefit from continued PT 1-2 more visits in this acute care setting for functional strength training, balance training, transfer training, gait training, stair training, pt education and d/c planning. Discharge Recommendations: home with Consult Recommendations: none Equipment needs: none Goals: To be achieved by 08/05/24: Pt. to perform bed mobility independently. Pt. to perform sit to stand transfers independently using no assistive device. Pt to perform bed to chair/commode transfers independently using no assistive device. Pt. to ambulate 160 feet independently using a no assistive device. Pt. to ambulate up/down 2 step/stairs using one rail with supervision. Family or caregiver to demonstrate understanding of therapeutic interventions to support the care of the patient. 2017 PT Evaluation Code Rationale: Diagnosis & Pertinent Co-Morbidities, personal factors, and present illness affecting Plan of Care: (see above); Additional personal factors or co- morbidities that impact plan: Total # of Factors: 0 1-2 3+ x Examination of body system impairments, functional limitations and behaviors, and/or participation restrictions. Addressing 1-2 elements Addressing 3 + elements Addressing 4 + elements x Clinical presentation: See assessment above. Stable/Uncomplicated Evolving/Fluctuating Symptoms Unstable/Unpredictable x Clinical decision making of moderate complexity based on pt's functional performance as outlined inthis evaluation. Total time: 37 (eval) minutes Time IN/OUT: [id number] ZAIDA DUBOSE PT Pager: [phone] Physical Therapy Inpatient Rehabilitation Department * Gagan Catherine MD - 08/02/2024 8:03 AM EST STAFF PROGRESS NOTE Critical Care Medicine Author: Gagan Catherine MD Patient seen and examined on critical care rounds. Korey Montoya is a 74 y.o. male with the following active issues:: Active Hospital Problems Diagnosis STEMI (ST elevation myocardial infarction) Resolved Hospital Problems No resolved problems to display. ASSESSMENT, MANAGEMENT, and DECISION MAKING: ID: Korey Montoya is a 74 y.o. male w/ PMH of hypertension, HLD, and BPH who presents for chief concern of chest pain after being found to have ST elevations on EKG. Patient transferred via air ambulance [place] [facility] [place] for LHC and LOW to LAD for 100% occlusion. TTE showed apical akinesis and inferior hypokinesis with EF 20%. RHC showed elevated filling pressures. Impella placed and P-level 6 at time of transfer to [facility]. CI initially 1.97, improved to 2.2 After impella. Received about 3 L of fluid during procedural course. Patient initially required norepinephrine 30, epinephrine 10, and vasopressin 0.04 for hemodynamic support, which was weaned upon arrival to CV to norepinephrine 20and levo 0.04 N - Neuro intact. Pain well controlled. P - Room air. C - STEMI s/p LOW x2. ASA/plavix, statin. S/p impella explant (07/31) and dobutamine off (08/01 am). NSR without recurrence of NSVT. Begin GDMT --> losartan PO. Dispo: Floor. EXAM: Physical Exam Last value Range last 24 hrs Temperature Temp: 37.3 ??C (99.1 ??F) Temp: [37.3 ??C (99.1 ??F)-37.6 ??C (99.7 ??F)] Heart Rate Heart Rate: 60 Heart Rate: [60-92] Blood Pressure BP: 109/69 BP: (101-120)/(63-82) Respiratory Rate Resp: 13 Resp: [11-28] SpO2 SpO2: 97 % SpO2: [95 %-97 %] Art BP BP (Arterial Line): 103/72 BP (Arterial Line): (102-125)/(52-73) Last Ht 07/30/24 167.6 cm (5' 6) Last Wt 08/02/24 62.3 kg (137 lb 5.6 oz) Body mass index is 22.17 kg/m??. IS PATIENT CRITICALLY ILL ? Is there a high potential of sudden, clinically significant, or life threatening deterioration? No Is there a need for direct personal assessment and management to treat/prevent multiple vital organfailure/deterioration? No Gagan Catherine MD 08/02/2024 * Krystal Parker MD - 08/02/2024 6:43 AM EST Images from the original note were not included. Cardiology ICU Progress Note Patient info: Name: Korey Montoya : 1950 PCP: Alexia Mtz APRN PCP phone number: [phone] Date of Admission: 07/29/2024 ( Hospital Day 4 days ) Attending:Bridgette Stauffer MD ID: Korey Montoya is a 74 y.o. male w/ PMH of hypertension, HLD, and BPH on Hospital Day4 for chief concern of chest pain after being found to have ST elevations on EKG. Patient transferred via air ambulance [place] [facility] [place] for LHC and LOW to LAD for 100% occlusion. 24 Hour Events/Subjective: Yesterday: - Amiodarone and dobutamine discontinued, Thomas off dobutamine was 2.8 --PA cath and arterial line removes Overnight: - NAEO This AM: - feeling well this AM, denies chest pain or dyspnea, is feeling more hungry today and excited to be able to sit up ABG (Arterial Blood Gas) Recent Labs 07/31/24 0829 07/30/24 0816 07/30/24 0057 07/29/24 1621 PHART 7.48* 7.44 7.38 7.37 [id number] 29* 29* 34* 36 PO2ART 71* 109* 141* 71* [id number] 20.6 19.4* 19.5* 20.4 VBG (Venous Blood Gas) Recent Labs 07/29/24 1401 PHVEN 7.30* PO2VEN 39 [id number] 20.1* Mixed Venous Sat No results for input(s): X3GRHX3 in the last 168 hours. Objective: Vitals Last value Range last 24 hrs Temperature Temp: 37 ??C (98.6 ??F) Temp: [37 ??C (98.6 ??F)-37.3 ??C (99.1 ??F)] Heart Rate Heart Rate: 81 Heart Rate: [60-95] Blood Pressure BP: 107/78 BP: (101-132)/(66-82) Art Line BP BP (Arterial Line): 103/72 BP (Arterial Line): (102-103)/(72-73) MAP (NBP): [79 mmHg-98 mmHg] Respiratory Rate Resp: 14 Resp: [13-25] SpO2 SpO2: 98 % SpO2: [95 %-98 %] Oxygen Delivery Oxygen Therapy O2 Device: None (Room air) O2 Flow Rate (L/min): 2 L/min Intake/Output Summary (Last 24 hours) at 08/02/2024 1245 Last data filed at 08/02/2024 1200 Gross per 24 hour Intake 980 ml Output 2825 ml Net -1845 ml Patient Vitals for the past 168 hrs: Weight 08/02/24 0425 62.3 kg (137 lb 5.6 oz) 07/30/24 0513 65.4 kg (144 lb 2.9 oz) 07/29/24 1320 64.1 kg (141 lb 5 oz) Admit wt: 64.1 kg Physical Exam: Gen: in bed in NAD. Alert, interactive HEENT: anicteric, EOMI intact, CV: Bradycardic, no murmurs/rubs/gallops, Resp: CTAB, no crackles/wheezes/ronchi, normal work of breathing Abd: normal bowel sounds, soft, non-tender to palpation, no rebound or guarding, femoral site dressing C/D/I Ext: toes warm, no pedal edema, palpable pedal pulses Neuro: no focal deficits noted, CN II-XII grossly intact, moves all extremities spontaneously, alert and oriented Psych: cooperative. Skin: no rashes, lesions, or ulcerations noted Lines/Drains/Airways Lines: Pulmonary Artery Catheter 07/29/24 1300 standard thermodilution catheter Right femoral vein (Active) Venous Infusion Patency/Maintenance infusing 07/29/241999 CVP/CO Port Patency/Maintenance infusing 07/29/241999 PA Port Patency/Maintenance infusing 07/29/241999 Site Preparation/Maintenance dressing: dry and intact 07/30/24599 Securement catheter securement device utilized 07/29/241999 PA Catheter Markings (cm) 70 07/29/241999 Phlebitis 0-->no symptoms 07/30/24599 Infiltration 0-->no symptoms 07/30/24599 Waveform normal 07/30/24599 Pressure Catheter Interventions line leveled/zeroed;system flushed 07/29/241999 Daily Review Of Necessity completed 07/29/241999 PIV 07/29/24 1300 18 gauge basilic vein (medial side of arm), left (Active) Indication/Daily Review of Necessity medication therapy continuous 07/29/241999 Site Preparation/Maintenance dressing: dry and intact 07/30/24599 Securement catheter stabilization device, secured with 07/29/241999 Patency/Maintenance flushed without difficulty 07/29/241999 Dressing change due 08/05/24 07/29/24 1400 Phlebitis 0-->no symptoms 07/30/24599 Infiltration 0-->no symptoms 07/30/24599 Site Signs/Symptoms no redness;no swelling;no warmth;no pain;no palpable cord;no streak formation;no drainage 07/29/241999 PIV 07/29/24 1300 18 gauge cephalic vein (lateral side of arm), left (Active) Indication/Daily Review of Necessity fluid therapy intermittent;medication therapy intermittent 07/29/241999 Site Preparation/Maintenance dressing: dry and intact 07/30/24599 Securement site guard in place 07/29/241999 Patency/Maintenance flushed without difficulty 07/29/241999 Dressing change due 07/29/24 07/29/24 1400 Phlebitis 0-->no symptoms 07/30/24599 Infiltration 0-->no symptoms 07/30/24599 Site Signs/Symptoms no redness;no swelling;no warmth;no pain;no palpable cord;no streak formation;no drainage 07/29/241999 LDA Cath/EP Sheath 07/29/24 Right Femoral (Active) Site Assessment Clean;Dry;Intact 07/30/24 06 Line Status Infusing 07/30/24599 Dressing Status Clean;Dry;Intact 07/30/2400 Dressing Change Due 08/05/24 07/29/24 1400 LDA Cath/EP Sheath 07/29/24 Proximal;Right Femoral (Active) Site Assessment Clean;Dry;Intact 07/30/24599 Line Status Infusing 07/30/24599 Dressing Status Clean;Dry;Intact 07/30/24599 Dressing Intervention New 07/29/24 1400 Dressing Change Due 08/05/24 07/29/24 1400 Arterial Line 07/29/24 1800 radial artery, left (Active) Daily Review Of Necessity completed 07/29/241999 Dressing dressing dry and intact 07/30/24599 Arterial Catheter Securement secured with sterile tape strips 07/29/241999 Lumen Patency/Care flushed without difficulty;blood return present 07/29/241999 Waveform normal 07/30/24599 Phlebitis 0-->no symptoms 07/30/24599 Infiltration 0-->no symptoms 07/30/24599 Site Signs/Symptoms no redness;no swelling;no warmth;no pain;no palpable cord;no streak formation;no drainage 07/29/241999 Pressure Catheter Interventions line leveled/zeroed;system flushed 07/29/241999 Labs: Recent Labs 08/02/24 0420 08/01/24 0418 07/31/24 0108 07/30/24 0211 07/29/24 1403 WBC 8.51 8.51 10.25* 11.25* 19.50* HGB 12.2* 11.2* 11.2* 12.2* 13.1* HCT 35.8* 33.8* 33.9* 37.1* 40.1* PLATELET 111* 94* 109* 166 236 MCV 81.2* 82.0* 82.1* 82.4* 83.4 Recent Labs 08/02/24 0420 08/01/24203808/01/24 0820 08/01/24 0418 07/31/24 0108 07/30/24200207/30/24 1508 07/30/24 0211 07/29/24201007/29/24 1403 NA 139 -- -- 137 140 -- 141 135 -- 138 CL 108* -- -- 108* 110* -- 109* 105 -- 104 CO2 23 -- -- 21* 24 -- 21* 19* -- 19* K 4.0 4.0 4.0 3.9 4.1 < > 3.4* 4.9 4.1 3.6 MAGNESIUM 0.79 -- -- 0.74 0.89 -- 0.90 1.01 -- 0.70 PHOS -- -- -- -- -- -- 2.1* -- 2.1* 2.5 CALCIUM 8.1* -- -- 7.7* 7.7* -- 7.9* 7.7* -- 8.0* BUN 12 -- -- 8* 11 -- 13 15 -- 13 CREATININE 0.90 -- -- 0.82 0.96 -- 1.01 0.88 -- 0.88 < > = values in this interval not displayed. LFTs Recent Labs 07/31/24 01007/29/24 1403 PROT 5.0* 6.0* ALBUMIN 3.1* 3.6 AST 192* -- ALT 59* 56* ALKPHOS 46 58 BILITOT 0.4 0.5 BILIDIR <0.2 -- Coags Recent Labs 07/29/24 1403 INR 1.3 PT 14.2* PTT >160* Cardiac Enzymes No results for input(s): CK, TROPONINT, PROBNP in the last 168 hours. Recent Labs 07/30/24 0809 07/29/24223007/29/242010 TROPONINTHS 8,651* >10,000* >10,000* Recent Labs 07/29/24 1403 TSH 0.70 Recent Labs 07/29/24 1403 HA1C 5.3 Lab Results Component Value Date CRP <3.0 07/29/2024 Lab Results Component Value Date CHLPL 133 07/29/2024 HDL 58 07/29/2024 TRIG 45 07/29/2024 LDLCHOL 64 07/29/2024 Endocrine Recent Labs 07/29/24 1403 TSH 0.70 Recent Labs 08/02/24 0747 08/01/24 2035 08/01/24 1655 08/01/24 1242 08/01/24 0744 07/31/24 2041 07/31/24 1104 07/31/24 0747 07/30/24 2003 07/30/24 1823 07/30/24 1708 07/30/24 1117 POCGLU 89 112 99 130 86 73 82 82 86 93 78 97 Heme No results for input(s): LDH, HAPTOGLOBIN, URICACID in the last 168 hours. ABG (Arterial Blood Gas) Recent Labs 07/31/24 0829 07/30/24 0816 07/30/24 0057 07/29/24 1621 PHART 7.48* 7.44 7.38 7.37 [id number] 29* 29* 34* 36 PO2ART 71* 109* 141* 71* [id number] 20.6 19.4* 19.5* 20.4 VBG (Venous Blood Gas) Recent Labs 07/29/24 1401 PHVEN 7.30* PO2VEN 39 [id number] 20.1* Mixed Venous Sat No results for input(s): H1OJWM9 in the last 168 hours. Microbiology: Microbiology Results (Last 30 days) Procedure Component Value Units Date/Time Blood culture [[id number]] Collected: 07/29/241607 Lab Status: Preliminary result Specimen: Blood, Venous Updated: 08/01/241700 Blood Culture No growth at 72 hours Blood culture [[id number]] Collected: 07/29/241607 Lab Status: Preliminary result Specimen: Blood, Venous Updated: 08/01/241700 Blood Culture No growth at 72 hours Imaging: Results for orders placed or performed during the hospital encounter of 07/29/24 XR Chest One View (Exam End: 07/29/2024 2:30 PM) Result Value WORKSTATION ID [id number] Impression 1. No pulmonary edema. 2. No pleural effusion. 3. No pneumothorax. Thank you for letting us participate in the care of this patient. If you are a health care provider and have any questions regarding this report, please contact the number below. For patients who have questions please contact the health rn progressive care that requested your imaging first. ( 07/30/24) Interpretation Summary - Left ventricle is severely dilated. Mildly increased thickness of the basal septum with no obstruction to LV outflow. Left ventricular systolic function is moderately reduced. The left ventricular ejection fraction is 33% by Giordano's biplane. - There are segmental wall motion abnormalities. There is no left ventricular thrombus. An Impella catheter is present. The inlet area of the Impella catheter is 3.6cm from the aortic annulus. - The right ventricle is of normal size. The distal right ventricular apex is akinetic. Global right ventricular systolic function is probably normal. The peak right ventricular systolic pressure is 32 mmHg Plus RA presssure. - The left atrium is mildly dilated. - Mild to moderate tricuspid regurgitation. - Mild mitral regurgitation. - Mild aortic regurgitation. - Compared to the overnight study by the customer operations associate fellow the impella position is stable. 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 Medications Scheduled Meds: losartan 25 mg Oral Daily enoxaparin 40 mg Subcutaneous Nightly tamsulosin 0.4 mg Oral Daily melatonin 6 mg Oral Nightly fluticasone propionate 1 spray Each Nare Daily aspirin EC 81 mg Oral Daily atorvastatin 80 mg Oral QPM clopidogreL 75 mg Oral Daily Continuous Infusions: NA PRN Meds:.influenza vaccine (65 yrs +), acetaminophen, glucose 40% oral geL OR dextrose OR glucagon Assessment & Plan: Korey Montoya is a 74 y.o. male w/ PMH of hypertension, HLD, and BPH on HD# 4 for chief concern of chest pain after being found to have ST elevations on EKG. Patient [place] [facility] [place] LHC and LOW to LAD for 100% occlusion. 08/02/24 Hemodynamically he has been stable without he support of pressors, inotrope's for over 24 hours. Will start to initiate GDMT today and transition him to the floor service for further GDMT initiation and titration. Neuro #EDISON - Awake, alert, interactive Cardiovascular #STEMI LAD, 100% occlusion s/p LOW 07/29 # Cardiogenic shock, resolved # HFrEF 2/2 Ischemic cardiomyopathy ( EF 33%) #Hypertension - s/p 600mg plavix load - s/p lidocaine gtt for single run of 10beat VT, DC on 07/30 - s/p impella placement ( removed 07/31) - Continue plavix 75mg daily - Continue atorvastatin 80mg nightly - Continue ASA 81mg - Not requiring vasoactive support, as MAP have been maintained >65 - Continue bolus dirusesis, with goal of euvolemic to net negative - GDMT: Start losartan 25mg Pulmonary #EDISON #dry cough, likely 2/2 atelectasis - continue to monitor - PRN ABGs - Incentive spirometry Renal/Fluid/Electrolytes #BPH - Continue home tamsulosin 0.04mg Gastrointestinal/Metabolic/Nutrition #[place] Hematology #EDISON Infection #Leukocytosis, down trending - f/ Bcx(07/29) - NGTD #Routine Diet: Cardiac diet DVT Prophylaxis: Lovenox GI Prophylaxis: Not indicated Code Status: Attempt Cardiopulmonary Resuscitation - Inpatient Dispo: Pending clinical course Susannah Ornelas MD Internal Medicine, PGY-1 Cardiology, [facility] 08/02/24 12:45 PM CARDIOLOGY STAFF NOTE I have personally interviewed and examined the patient and reviewed appropriate data, including labs, ECGs and other diagnostic studies. I agree with the principal findings documented above. The assessment and plan were formulated in discussion with me. # Anterior STEMI, late-presenting; s/p PCI to the LAD # Cardiogenic shock; status post Impella support # Non-sustained ventricular tachycardia; resolved Clinically improved. Impella removed. Off inotropic therapy. Stopped amiodarone. Continue IV diuresis. Will ultimately need institution of full complement of GDMT (start ARB today). Transfer to floor. Krystal Parker, MD, [facility] Staff Assistant Professor Of Communication physician general practice * Gagan Catherine MD - 08/01/2024 11:12 AM EST STAFF PROGRESS NOTE Critical Care Medicine Author: Gagan Catherine MD Patient seen and examined on critical care rounds. Korey Montoya is a 74 y.o. male with the following active issues:: Active Hospital Problems Diagnosis STEMI (ST elevation myocardial infarction) Resolved Hospital Problems No resolved problems to display. ASSESSMENT, MANAGEMENT, and DECISION MAKING: ID: Korey Montoya is a 74 y.o. male w/ PMH of hypertension, HLD, and BPH who presents for chief concern of chest pain after being found to have ST elevations on EKG. Patient [place] via air ambulance [place] [facility] [place] for LHC and LOW to LAD for 100% occlusion. TTE showed apical akinesis and inferior hypokinesis with EF 20%. RHC showed elevated filling pressures. Impella placed and P-level 6 at time of transfer to CV. CI initially 1.97, improved to 2.2 After impella. Received about 3 L of fluid during procedural course. Patient initially required norepinephrine 30, epinephrine 10, and vasopressin 0.04 for hemodynamic support, which was weaned upon arrival to [facility] to norepinephrine 20and levo 0.04 N - Neuro intact. Pain well controlled. P - Room air. C - STEMI s/p LOW x2. ASA/plavix, statin. S/p impella explant (07/31) and dobutamine off this morning (08/01). CI 2.5. DC PAC. NSR. No recurrence of NSVT - DC amio gtt. GDMT as able. Lasix 20mg IV x1; goal -1L. EXAM: Physical Exam Last value Range last 24 hrs Temperature Temp: 37.6 ??C (99.7 ??F) Temp: [37.3 ??C (99.1 ??F)-37.7 ??C (99.9 ??F)] Heart Rate Heart Rate: 84 Heart Rate: [63-91] Blood Pressure BP: 121/64 BP: (121)/(64) Respiratory Rate Resp: 17 Resp: [9-21] SpO2 SpO2: 96 % SpO2: [93 %-97 %] Art BP BP (Arterial Line): 113/52 BP (Arterial Line): (106-126)/(49-64) Last Ht 07/30/24 167.6 cm (5' 6) Last Wt 07/30/24 65.4 kg (144 lb 2.9 oz) Body mass index is 23.27 kg/m??. IS PATIENT CRITICALLY ILL ? Is there a high potential of sudden, clinically significant, or life threatening deterioration? Yes Is there a need for direct personal assessment and management to treat/prevent multiple vital organfailure/deterioration? Yes PATIENT IS CRITICALLY ILL WITH THESE DIAGNOSES BEING MANAGED BY [facility] TEAM: Acute Myocardial Infarction STEMI, left main anterior descending I personally performed 30 minutes of aggregate critical care time exclusive of procedures and teaching. This includes time spent during direct patient evaluation and reassessment, interpreting diagnostic tests, directing life and/or organ supporting interventions and documentation on the unit. Gagan Catherine MD 08/01/2024 * Krystal Parker MD - 08/01/2024 7:13 AM EST Images from the original note were not included. Cardiology ICU Progress Note Patient info: Name: Korey Montoya : 1950 PCP: Alexia Mtz APRN PCP phone number: [phone] Date of Admission: 07/29/2024 ( Hospital Day 3 days ) Attending:Krystal Parker MD ID: Korey Montoya is a 74 y.o. male w/ PMH of hypertension, HLD, and BPH on Hospital Day3 for chief concern of chest pain after being found to have ST elevations on EKG. Patient transferred via air ambulance [place] [facility] [place] for LHC and LOW to LAD for 100% occlusion. 24 Hour Events/Subjective: Yesterday: - Continued on amiodarone and dobutamine gtt - Impella out, CI after 3.2 Overnight: - NAEO - Continues on dobutamine and amiodarone This AM: - feeling well this AM, denies chest pain or dyspnea, is feeling more hungry today Vasoactive & Sedating Medications: Infusions: Continuous Infusions: DOBUTamine Stopped (08/01/24 0654) dextrose 5% 1,000 mL with sodium bicarbonate 25 mEq infusion 12 mL/hr at 08/01/24 06 AMIOdarone 0.5 mg/min (08/01/24 0641) heparin (porcine) infusion Stopped (07/31/24 1401) ABG (Arterial Blood Gas) Recent Labs 07/31/24 0829 07/30/24 0816 07/30/24 0057 07/29/24 1621 PHART 7.48* 7.44 7.38 7.37 [id number] 29* 29* 34* 36 PO2ART 71* 109* 141* 71* [id number] 20.6 19.4* 19.5* 20.4 VBG (Venous Blood Gas) Recent Labs 07/29/24 1401 PHVEN 7.30* PO2VEN 39 QUM1ACR 20.1* Mixed Venous Sat No results for input(s): [id number] in the last 168 hours. PA Catheter #'s PA Catheter PAP (mmHg): 46/16 (08/01/24599) PAP (mean): 26 (08/01/24599) CO (l/min): 5.4 l/min (08/01/24409) CI (l/min/m2): 3.1 l/min/m2 (08/01/24409) SVR (dyne*sec)/cm2: 1042 (dyne*sec)/cm2 (08/01/24409) SVRI (dyne*sec)/cm2: 1782 (dyne*sec)/cm5 (08/01/24409) Stroke Volume (ml): 79 ml (08/01/24409) CVP (mmHg): 8 mmHg (08/01/24599) @8AM CVP 9 PA 43/13 mean 23 CO 5.4 CI 3.1 Objective: Vitals Last value Range last 24 hrs Temperature Temp: 37.3 ??C (99.1 ??F) Temp: [37.3 ??C (99.1 ??F)-37.7 ??C (99.9 ??F)] Heart Rate Heart Rate: 66 Heart Rate: [63-86] Blood Pressure BP: 92/70 BP: -- Art Line BP BP (Arterial Line): 126/56 BP (Arterial Line): (106-134)/(49-66) MAP (NBP): -- Respiratory Rate Resp: 15 Resp: [9-24] SpO2 SpO2: 96 % SpO2: [93 %-97 %] Oxygen Delivery Oxygen Therapy O2 Device: None (Room air) O2 Flow Rate (L/min): 2 L/min Intake/Output Summary (Last 24 hours) at 08/01/2024 0713 Last data filed at 08/01/2024 0600 Gross per 24 hour Intake 2490.42 ml Output 2830 ml Net -339.58 ml Patient Vitals for the past 168 hrs: Weight 07/30/24 0513 65.4 kg (144 lb 2.9 oz) 07/29/24 1320 64.1 kg (141 lb 5 oz) Admit wt: 64.1 kg Physical Exam: Gen: in bed in NAD. Alert, interactive HEENT: anicteric, EOMI intact, CV: Bradycardic, no murmurs/rubs/gallops, Resp: CTAB, no crackles/wheezes/ronchi, normal work of breathing Abd: normal bowel sounds, soft, non-tender to palpation, no rebound or guarding, femoral site dressing C/D/I Ext: toes warm, no pedal edema, palpable pedal pulses Neuro: no focal deficits noted, CN II-XII grossly intact, moves all extremities spontaneously, alert and oriented Psych: cooperative. Skin: no rashes, lesions, or ulcerations noted Lines/Drains/Airways Lines: Pulmonary Artery Catheter 07/29/24 1300 standard thermodilution catheter Right femoral vein (Active) Venous Infusion Patency/Maintenance infusing 07/29/241999 CVP/CO Port Patency/Maintenance infusing 07/29/241999 PA Port Patency/Maintenance infusing 07/29/241999 Site Preparation/Maintenance dressing: dry and intact 07/30/24599 Securement catheter securement device utilized 07/29/241999 PA Catheter Markings (cm) 70 07/29/241999 Phlebitis 0-->no symptoms 11/18/24 0600 Infiltration 0-->no symptoms 07/30/24 0600 Waveform normal 07/30/24 06 Pressure Catheter Interventions line leveled/zeroed;system flushed 07/29/241999 Daily Review Of Necessity completed 07/29/241999 PIV 07/29/24 1300 18 gauge basilic vein (medial side of arm), left (Active) Indication/Daily Review of Necessity medication therapy continuous 07/29/241999 Site Preparation/Maintenance dressing: dry and intact 07/30/24599 Securement catheter stabilization device, secured with 07/29/241999 Patency/Maintenance flushed without difficulty 07/29/241999 Dressing change due 08/05/24 07/29/24 1400 Phlebitis 0-->no symptoms 07/30/24599 Infiltration 0-->no symptoms 07/30/24599 Site Signs/Symptoms no redness;no swelling;no warmth;no pain;no palpable cord;no streak formation;no drainage 07/29/241999 PIV 07/29/24 1300 18 gauge cephalic vein (lateral side of arm), left (Active) Indication/Daily Review of Necessity fluid therapy intermittent;medication therapy intermittent 07/29/241999 Site Preparation/Maintenance dressing: dry and intact 07/30/24599 Securement site guard in place 07/29/241999 Patency/Maintenance flushed without difficulty 07/29/241999 Dressing change due 07/29/24 07/29/24 1400 Phlebitis 0-->no symptoms 07/30/24599 Infiltration 0-->no symptoms 07/30/24599 Site Signs/Symptoms no redness;no swelling;no warmth;no pain;no palpable cord;no streak formation;no drainage 07/29/241999 LDA Cath/EP Sheath 07/29/24 Right Femoral (Active) Site Assessment Clean;Dry;Intact 07/30/24599 Line Status Infusing 07/30/24599 Dressing Status Clean;Dry;Intact 07/30/24599 Dressing Change Due 08/05/24 07/29/24 1400 LDA Cath/EP Sheath 07/29/24 Proximal;Right Femoral (Active) Site Assessment Clean;Dry;Intact 07/30/24599 Line Status Infusing 07/30/24599 Dressing Status Clean;Dry;Intact 11/18/24 0600 Dressing Intervention New 07/29/24 1400 Dressing Change Due 08/05/24 07/29/24 1400 Arterial Line 07/29/24 1800 radial artery, left (Active) Daily Review Of Necessity completed 07/29/241999 Dressing dressing dry and intact 07/30/24599 Arterial Catheter Securement secured with sterile tape strips 07/29/241999 Lumen Patency/Care flushed without difficulty;blood return present 07/29/241999 Waveform normal 07/30/24599 Phlebitis 0-->no symptoms 07/30/24599 Infiltration 0-->no symptoms 07/30/24599 Site Signs/Symptoms no redness;no swelling;no warmth;no pain;no palpable cord;no streak formation;no drainage 07/29/241999 Pressure Catheter Interventions line leveled/zeroed;system flushed 07/29/241999 Labs: Recent Labs 08/01/24 0418 07/31/24 0108 07/30/2421007/29/24 1403 07/29/24 1246 WBC 8.51 10.25* 11.25* 19.50* -- HGB 11.2* 11.2* 12.2* 13.1* -- HCT 33.8* 33.9* 37.1* 40.1* 39.0* PLATELET 94* 109* 166 236 -- MCV 82.0* 82.1* 82.4* 83.4 -- Recent Labs 08/01/24 0418 07/31/24 0108 07/30/24200207/30/24 1508 07/30/2421007/29/24201007/29/24 1403 NA 137 140 -- 141 135 -- 138 CL 108* 110* -- 109* 105 -- 104 CO2 21* 24 -- 21* 19* -- 19* K 3.9 4.1 3.8 3.4* 4.9 4.1 3.6 MAGNESIUM 0.74 0.89 -- 0.90 1.01 -- 0.70 PHOS -- -- -- 2.1* -- 2.1* 2.5 CALCIUM 7.7* 7.7* -- 7.9* 7.7* -- 8.0* BUN 8* 11 -- 13 15 -- 13 CREATININE 0.82 0.96 -- 1.01 0.88 -- 0.88 LFTs Recent Labs 07/31/24 0108 07/29/24 1403 PROT 5.0* 6.0* ALBUMIN 3.1* 3.6 AST 192* -- ALT 59* 56* ALKPHOS 46 58 BILITOT 0.4 0.5 BILIDIR <0.2 -- Coags Recent Labs 07/29/24 1403 INR 1.3 PT 14.2* PTT >160* Cardiac Enzymes No results for input(s): CK, TROPONINT, PROBNP in the last 168 hours. Recent Labs 07/30/24 0809 07/29/24 2231 07/29/242010 TROPONINTHS 8,651* >10,000* >10,000* Recent Labs 07/29/24 1403 TSH 0.70 Recent Labs 07/29/24 1403 HA1C 5.3 Lab Results Component Value Date CRP <3.0 07/29/2024 Lab Results Component Value Date CHLPL 133 07/29/2024 HDL 58 07/29/2024 TRIG 45 07/29/2024 LDLCHOL 64 07/29/2024 Endocrine Recent Labs 07/29/24 1403 TSH 0.70 Recent Labs 07/31/24 2041 07/31/24 1104 07/31/24 0747 07/30/24 2003 07/30/24 1823 07/30/24 1708 07/30/24 1117 07/30/24 0740 07/29/24 2009 07/29/24 1757 07/29/24 1619 POCGLU 73 82 82 86 93 78 97 111 142 166 185 Heme No results for input(s): LDH, HAPTOGLOBIN, URICACID in the last 168 hours. ABG (Arterial Blood Gas) Recent Labs 07/31/24 0829 07/30/24 0816 07/30/24 0057 07/29/24 1621 PHART 7.48* 7.44 7.38 7.37 EPL0SCK 29* 29* 34* 36 PO2ART 71* 109* 141* 71* ZUR1VQT 20.6 19.4* 19.5* 20.4 VBG (Venous Blood Gas) Recent Labs 07/29/24 1401 PHVEN 7.30* PO2VEN 39 WQV0ZWQ 20.1* Mixed Venous Sat No results for input(s): [id number] in the last 168 hours. Microbiology: Microbiology Results (Last 30 days) Procedure Component Value Units Date/Time Blood culture [[id number]] Collected: 07/29/241607 Lab Status: Preliminary result Specimen: Blood, Venous Updated: 07/31/241700 Blood Culture No growth at 48 hours Blood culture [[id number]] Collected: 07/29/241607 Lab Status: Preliminary result Specimen: Blood, Venous Updated: 07/31/241700 Blood Culture No growth at 48 hours Imaging: Results for orders placed or performed during the hospital encounter of 07/29/24 XR Chest One View (Exam End: 07/29/2024 2:30 PM) Result Value WORKSTATION ID [id number] Impression 1. No pulmonary edema. 2. No pleural effusion. 3. No pneumothorax. Thank you for letting us participate in the care of this patient. If you are a health care provider and have any questions regarding this report, please contact the number below. For patients who have questions please contact the health rn progressive care that requested your imaging first. ( 07/30/24) Interpretation Summary - Left ventricle is severely dilated. Mildly increased thickness of the basal septum with no obstruction to LV outflow. Left ventricular systolic function is moderately reduced. The left ventricular ejection fraction is 33% by Giordano's biplane. - There are segmental wall motion abnormalities. There is no left ventricular thrombus. An Impella catheter is present. The inlet area of the Impella catheter is 3.6cm from the aortic annulus. - The right ventricle is of normal size. The distal right ventricular apex is akinetic. Global right ventricular systolic function is probably normal. The peak right ventricular systolic pressure is 32 mmHg Plus RA presssure. - The left atrium is mildly dilated. - Mild to moderate tricuspid regurgitation. - Mild mitral regurgitation. - Mild aortic regurgitation. - Compared to the overnight study by the customer operations associate fellow the impella position is stable. 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 Medications Scheduled Meds: melatonin 6 mg Oral Nightly pantoprazole EC 40 mg Oral Daily fluticasone propionate 1 spray Each Nare Daily aspirin EC 81 mg Oral Daily atorvastatin 80 mg Oral QPM clopidogreL 75 mg Oral Daily insulin lispro 1-4 Units Subcutaneous TID AC Continuous Infusions: DOBUTamine Stopped (08/01/24 0654) dextrose 5% 1,000 mL with sodium bicarbonate 25 mEq infusion 12 mL/hr at 08/01/24 0600 AMIOdarone 0.5 mg/min (08/01/24 0641) heparin (porcine) infusion Stopped (07/31/24 1401) PRN Meds:.midazolam (PF), fentaNYL (PF), ceFAZolin, influenza vaccine (65 yrs +), acetaminophen, glucose 40% oral geL OR dextrose OR glucagon, potassium chloride in water OR potassium chloride in water OR potassium chloride in water, ondansetron Assessment & Plan: Korey Montoya is a 74 y.o. male w/ PMH of hypertension, HLD, and BPH on HD# 3 for chief concern of chest pain after being found to have ST elevations on EKG. Patient transferred via air ambulance [place] [facility] [place] for LHC and LOW to LAD for 100% occlusion. 08/01/24 His hemodynamics and CI( Thomas 2.8) remained stable without impella, will discontinue dobutamine andamiodarone today, and pull PA catheter and arterial line. Will continue bolus diuresis today, with goal of net even to slight negative. Will plant to introduce GDMT int he coming days. Overall he is c linically improving, and may be transferred to the floor cardiology service tomorrow. Neuro #EDISON - Awake, alert, interactive Cardiovascular #STEMI LAD, 100% occlusion s/p LOW 07/29 #Cardiogenic shock (EF ~20% during procedural TTE) #Impella Pump in place - s/p 600mg plavix load - s/p lidocaine gtt for single run of 10beat VT, DC on 07/30 - Continue plavix 75mg daily - Continue atorvastatin 80mg nightly - Continue ASA 81mg - Discontinue Dobutamine gtt - Discontinue amiodarone gtt - Not requiring vasoactive support, as MAP have been maintained >65 - Continue bolus dirusesis, with goal of euvolemic to net negative #Hypertension - HOLD home losartan 25mg daily in setting of cardiogenic shock Pulmonary #EDISON #dry cough, likely 2/2 atelectasis - continue to monitor - PRN ABGs - Incentive spirometry - Start Flonase Renal/Fluid/Electrolytes #BPH - Restart home tamsulosin 0.04mg in setting of shock - DC perez Gastrointestinal/Metabolic/Nutrition #GI prophylaxis - discontinue protonix 40mg daily as off pressors Hematology - EDISON Infection #Leukocytosis, down trending - f/ Bcx(07/29) - NGTD #Routine Diet: Cardiac diet DVT Prophylaxis: Lovenox GI Prophylaxis: Not indicated Code Status: Attempt Cardiopulmonary Resuscitation - Inpatient Dispo: Pending clinical course Susannah Ornelas MD Internal Medicine, PGY-1 Cardiology, [facility] 08/01/24 7:13 AM CARDIOLOGY STAFF NOTE I have personally interviewed and examined the patient and reviewed appropriate data, including labs, ECGs and other diagnostic studies. I agree with the principal findings documented above. The assessment and plan were formulated in discussion with me. # Anterior STEMI, late-presenting # Cardiogenic shock; Impella in place # Non-sustained ventricular tachycardia Clinically improving. Impella removed yesterday. Off inotropic therapy. Stop amiodarone. Cardiac index remains preserved; remove PA catheter. Continue IV diuresis. Will ultimately need institution ofGDMT. Discussed with him; questions answered. Krystal Parker MD, [facility] Staff Assistant Professor Of Communication physician general practice * Krystal Parker MD - 07/31/2024 1:06 PM EST Cardiovascular Critical Care Attending Note The patient seen and examined on critical care rounds. Korey Montoya is a 74 y.o. male with the following active issues:: # Anterior STEMI, late-presenting # Cardiogenic shock; Impella in place # Non-sustained ventricular tachycardia MEDICATIONS: Scheduled Meds: melatonin 6 mg Oral Nightly pantoprazole EC 40 mg Oral Daily fluticasone propionate 1 spray Each Nare Daily aspirin EC 81 mg Oral Daily atorvastatin 80 mg Oral QPM clopidogreL 75 mg Oral Daily insulin lispro 1-4 Units Subcutaneous TID AC Continuous Infusions: DOBUTamine 2.5 mcg/kg/min (07/31/24 1200) dextrose 5% 1,000 mL with sodium bicarbonate 25 mEq infusion 12 mL/hr at 07/31/24 1200 AMIOdarone 0.5 mg/min (07/31/24 1200) heparin (porcine) infusion 13 Units/kg/hr (07/31/24 1200) EXAM: Last value Range last 24 hrs Temperature Temp: 37.5 ??C (99.5 ??F) Temp: [37.1 ??C (98.8 ??F)-37.9 ??C (100.2 ??F)] Heart Rate Heart Rate: 72 Heart Rate: [38-78] Blood Pressure BP: 92/70 BP: -- Respiratory Rate Resp: 21 Resp: [12-34] SpO2 SpO2: 94 % SpO2: [92 %-97 %] Art BP BP (Arterial Line): 110/58 BP (Arterial Line): (97-134)/(53-69) Weights: Patient Vitals for the past 168 hrs: Weight 07/30/24 0513 65.4 kg (144 lb 2.9 oz) 07/29/24 1320 64.1 kg (141 lb 5 oz) Mr. Jackson developed cardiogenic shock after presenting with an anterior STEMI (appears to have presented late into course); status post PCI to the LAD and placement of an Impella. Required addition of dobutamine overnight 07/29- 07/30 based on low CI/CO. Will continue PA catheter-directed management and work to optimize volume status. Cardiac index is now remaining acceptable and stable with weaning of the Impella, so we will work to have this removed by the Interventional Team today. Was initially started on both amiodarone and lidocaine for NSVT after PCI. Stopped lidocaine yesterday. Anticipate stopping amiodarone after removal of Impella (and likely after eventual discontinuation of the dobutamine). Remains on heparin while Impella is in place. IS PATIENT CRITICALLY ILL? Is there a high potential of sudden, clinically significant, or life threatening deterioration? Yes Is there a need for direct personal assessment and management to treat/prevent multiple vital organfailure/deterioration? Yes PATIENT IS CRITICALLY ILL WITH THESE DIAGNOSES BEING MANAGED BY [facility] TEAM: # Anterior STEMI, late-presenting # Cardiogenic shock; Impella in place # Non-sustained ventricular tachycardia TIME spent on the unit excluding procedures: 30 mins. This includes time spent during direct patient evaluation and reassessment, interpretation of diagnostic tests, and direction of life and/or organ supporting interventions. KRYSTAL PARKER MD 07/31/2024 * Gagan Catherine MD - 07/31/2024 8:47 AM EST STAFF PROGRESS NOTE Critical Care Medicine Author: Gagan Catherine MD Patient seen and examined on critical care rounds. oKrey Montoya is a 74 y.o. male with the following active issues:: Active Hospital Problems Diagnosis STEMI (ST elevation myocardial infarction) Resolved Hospital Problems No resolved problems to display. ASSESSMENT, MANAGEMENT, and DECISION MAKING: ID: Korey Montoya is a 74 y.o. male w/ PMH of hypertension, HLD, and BPH who presents for chief concern of chest pain after being found to have ST elevations on EKG. Patient transferred via air ambulance [place] [facility] [place] for LHC and LOW to LAD for 100% occlusion. TTE showed apical akinesis and inferior hypokinesis with EF 20%. RHC showed elevated filling pressures. Impella placed and P-level 6 at time of transfer to [facility]. CI initially 1.97, improved to 2.2 After impella. Received about 3 L of fluid during procedural course. Patient initially required norepinephrine 30, epinephrine 10, and vasopressin 0.04 for hemodynamic support, which was weaned upon arrival to [facility] to norepinephrine 20and levo 0.04 N - Neuro intact. Pain well controlled. P - Room air. C - STEMI s/p LOW x2. ASA/plavix, statin. CI 3, SVR 1300 with dobutamine 2.5 and Impella @ P3 (~ 1.8LPM) -- hold heparin and remove impella. Legs warm, pulses present. NSR; amio gtt. No pressor requirement. Lactate normal. Robust urine output. - Goal negative 1L daily. EXAM: Physical Exam Last value Range last 24 hrs Temperature Temp: 37.5 ??C (99.5 ??F) Temp: [37.1 ??C (98.8 ??F)-37.9 ??C (100.2 ??F)] Heart Rate Heart Rate: 73 Heart Rate: [38-78] Blood Pressure BP: 92/70 BP: -- Respiratory Rate Resp: 18 Resp: [12-34] SpO2 SpO2: 95 % SpO2: [91 %-97 %] Art BP BP (Arterial Line): 134/63 BP (Arterial Line): (97-134)/(53-69) Last Ht 07/30/24 167.6 cm (5' 6) Last Wt 07/30/24 65.4 kg (144 lb 2.9 oz) Body mass index is 23.27 kg/m??. IS PATIENT CRITICALLY ILL ? Is there a high potential of sudden, clinically significant, or life threatening deterioration? Yes Is there a need for direct personal assessment and management to treat/prevent multiple vital organfailure/deterioration? Yes PATIENT IS CRITICALLY ILL WITH THESE DIAGNOSES BEING MANAGED BY [facility] TEAM: Acute Myocardial Infarction STEMI, left main anterior descending I personally performed 40 minutes of aggregate critical care time exclusive of procedures and teaching. This includes time spent during direct patient evaluation and reassessment, interpreting diagnostic tests, directing life and/or organ supporting interventions and documentation on the unit. Gagan Catherine MD 07/31/2024 * Susannah Ornelas MD - 07/31/2024 7:34 AM EST Images from the original note were not included. Cardiology ICU Progress Note Patient info: Name: Korey Montoya : 1950 PCP: Alexia Mtz APRN PCP phone number: [phone] Date of Admission: 07/29/2024 ( Hospital Day 2 days ) Attending:Krystal Parker MD ID: Korey Montoya is a 74 y.o. male w/ PMH of hypertension, HLD, and BPH on Hospital Day2 for chief concern of chest pain after being found to have ST elevations on EKG. [place] [facility] LHC and LOW to LAD for 100% occlusion. 24 Hour Events/Subjective: Yesterday: - discontinued lidocaine, continues amiodarone at maintenance dose - Continued on dobutamine - CI of 2.9, which prompted impella down to P3, CI 3.1 - TTE showed EF of 33% Overnight: - NAEO - melatonin for sleep This AM: - No longer has chest pain, reports with attempts at deep inspiration he has a nonproductive cough that prevents him from inspiring deeply, denies dyspnea Vasoactive & Sedating Medications: Infusions: Continuous Infusions: DOBUTamine 2.5 mcg/kg/min (07/31/24799) dextrose 5% 1,000 mL with sodium bicarbonate 25 mEq infusion 12 mL/hr at 07/31/24799 AMIOdarone 0.5 mg/min (07/31/24799) heparin (porcine) infusion 7 Units/kg/hr (07/31/24799) ABG (Arterial Blood Gas) Recent Labs 07/30/24 0816 07/30/24 0057 07/29/24 1621 PHART 7.44 7.38 7.37 [id number] 29* 34* 36 PO2ART 109* 141* 71* [id number] 19.4* 19.5* 20.4 VBG (Venous Blood Gas) Recent Labs 07/29/24 1401 PHVEN 7.30* PO2VEN 39 [id number] 20.1* Mixed Venous Sat No results for input(s): A0VGUL0 in the last 168 hours. PA Catheter #'s PA Catheter PAP (mmHg): 48/18 (07/31/24799) PAP (mean): 28 (07/31/24799) CO (l/min): 4.8 l/min (07/31/24405) CI (l/min/m2): 2.8 l/min/m2 (07/31/24405) SVR (dyne*sec)/cm2: 1147 (dyne*sec)/cm2 (07/31/24405) SVRI (dyne*sec)/cm2: 1961 (dyne*sec)/cm5 (07/31/24405) Stroke Volume (ml): 70.7 ml (07/31/24405) CVP (mmHg): 10 mmHg (07/31/24 0800) @4AM CVP 10 PA 43/15 mean 25 CO 4.8 CI 2.8 SVR 1147 Objective: Vitals Last value Range last 24 hrs Temperature Temp: 37.5 ??C (99.5 ??F) Temp: [37.1 ??C (98.8 ??F)-37.9 ??C (100.2 ??F)] Heart Rate Heart Rate: 78 Heart Rate: [38-78] Blood Pressure BP: 92/70 BP: -- Art Line BP BP (Arterial Line): 126/64 BP (Arterial Line): (97-134)/(53-69) MAP (NBP): -- Respiratory Rate Resp: 18 Resp: [12-34] SpO2 SpO2: 95 % SpO2: [91 %-97 %] Oxygen Delivery Oxygen Therapy O2 Device: None (Room air) O2 Flow Rate (L/min): 2 L/min Intake/Output Summary (Last 24 hours) at 07/31/2024818 Last data filed at 07/31/2024 0800 Gross per 24 hour Intake 3265.81 ml Output 5140 ml Net -1874.19 ml Patient Vitals for the past 168 hrs: Weight 07/30/24 0513 65.4 kg (144 lb 2.9 oz) 07/29/24 1320 64.1 kg (141 lb 5 oz) Admit wt: 64.1 kg Physical Exam: Gen: in bed in NAD. Alert, interactive HEENT: anicteric, EOMI intact, CV: Bradycardic, no murmurs/rubs/gallops, Impella @P3 Resp: CTAB, no crackles/wheezes/ronchi, normal work of breathing Abd: normal bowel sounds, soft, non-tender to palpation, no rebound or guarding, impella site dressing C/D/I Ext: toes warm, no pedal edema, palpable pedal pulses Neuro: no focal deficits noted, CN II-XII grossly intact, moves all extremities spontaneously, alert and oriented Psych: cooperative. Skin: no rashes, lesions, or ulcerations noted Lines/Drains/Airways Lines: Pulmonary Artery Catheter 07/29/241299 standard thermodilution catheter Right femoral vein (Active) Venous Infusion Patency/Maintenance infusing 07/29/241999 CVP/CO Port Patency/Maintenance infusing 07/29/241999 PA Port Patency/Maintenance infusing 07/29/241999 Site Preparation/Maintenance dressing: dry and intact 07/30/24599 Securement catheter securement device utilized 07/29/241999 PA Catheter Markings (cm) 70 07/29/241999 Phlebitis 0-->no symptoms 07/30/24599 Infiltration 0-->no symptoms 07/30/24599 Waveform normal 07/30/24599 Pressure Catheter Interventions line leveled/zeroed;system flushed 07/29/241999 Daily Review Of Necessity completed 07/29/241999 PIV 07/29/24 1300 18 gauge basilic vein (medial side of arm), left (Active) Indication/Daily Review of Necessity medication therapy continuous 07/29/241999 Site Preparation/Maintenance dressing: dry and intact 07/30/24599 Securement catheter stabilization device, secured with 07/29/241999 Patency/Maintenance flushed without difficulty 07/29/241999 Dressing change due 08/05/24 07/29/24 1400 Phlebitis 0-->no symptoms 07/30/24599 Infiltration 0-->no symptoms 07/30/24599 Site Signs/Symptoms no redness;no swelling;no warmth;no pain;no palpable cord;no streak formation;no drainage 07/29/241999 PIV 07/29/24 1300 18 gauge cephalic vein (lateral side of arm), left (Active) Indication/Daily Review of Necessity fluid therapy intermittent;medication therapy intermittent 07/29/241999 Site Preparation/Maintenance dressing: dry and intact 07/30/24599 Securement site guard in place 07/29/241999 Patency/Maintenance flushed without difficulty 07/29/241999 Dressing change due 07/29/24 07/29/24 1400 Phlebitis 0-->no symptoms 07/30/24599 Infiltration 0-->no symptoms 07/30/24599 Site Signs/Symptoms no redness;no swelling;no warmth;no pain;no palpable cord;no streak formation;no drainage 07/29/241999 LDA Cath/EP Sheath 07/29/24 Right Femoral (Active) Site Assessment Clean;Dry;Intact 07/30/24 0600 Line Status Infusing 07/30/24 0600 Dressing Status Clean;Dry;Intact 07/30/24 0600 Dressing Change Due 08/05/24 07/29/24 1400 LDA Cath/EP Sheath 07/29/24 Proximal;Right Femoral (Active) Site Assessment Clean;Dry;Intact 07/30/24 0600 Line Status Infusing 07/30/24 0600 Dressing Status Clean;Dry;Intact 07/30/24 0600 Dressing Intervention New 07/29/24 1400 Dressing Change Due 08/05/24 07/29/24 1400 Arterial Line 07/29/24 1800 radial artery, left (Active) Daily Review Of Necessity completed 07/29/241999 Dressing dressing dry and intact 07/30/24 06 Arterial Catheter Securement secured with sterile tape strips 07/29/241999 Lumen Patency/Care flushed without difficulty;blood return present 07/29/241999 Waveform normal 07/30/24599 Phlebitis 0-->no symptoms 07/30/24599 Infiltration 0-->no symptoms 07/30/24599 Site Signs/Symptoms no redness;no swelling;no warmth;no pain;no palpable cord;no streak formation;no drainage 07/29/241999 Pressure Catheter Interventions line leveled/zeroed;system flushed 07/29/241999 Labs: Recent Labs 07/31/2410707/30/2421007/29/24 1403 07/29/24 1246 07/29/24 1212 WBC 10.25* 11.25* 19.50* -- -- HGB 11.2* 12.2* 13.1* -- -- HCT 33.9* 37.1* 40.1* 39.0* 36.0* PLATELET 109* 166 236 -- -- MCV 82.1* 82.4* 83.4 -- -- Recent Labs 07/31/2410707/30/24200207/30/24 1508 07/30/2421007/29/24201007/29/24 1403 NA 140 -- 141 135 -- 138 CL 110* -- 109* 105 -- 104 CO2 24 -- 21* 19* -- 19* K 4.1 3.8 3.4* 4.9 4.1 3.6 MAGNESIUM 0.89 -- 0.90 1.01 -- 0.70 PHOS -- -- 2.1* -- 2.1* 2.5 CALCIUM 7.7* -- 7.9* 7.7* -- 8.0* BUN 11 -- 13 15 -- 13 CREATININE 0.96 -- 1.01 0.88 -- 0.88 LFTs Recent Labs 07/31/24 0108 07/29/24 1403 PROT 5.0* 6.0* ALBUMIN 3.1* 3.6 AST 192* -- ALT 59* 56* ALKPHOS 46 58 BILITOT 0.4 0.5 BILIDIR <0.2 -- Coags Recent Labs 07/29/24 1403 INR 1.3 PT 14.2* PTT >160* Cardiac Enzymes No results for input(s): CK, TROPONINT, PROBNP in the last 168 hours. Recent Labs 07/30/24 0809 07/29/24 2231 07/29/242010 TROPONINTHS 8,651* >10,000* >10,000* Recent Labs 07/29/24 1403 TSH 0.70 Recent Labs 07/29/24 1403 HA1C 5.3 Lab Results Component Value Date CRP <3.0 07/29/2024 Lab Results Component Value Date CHLPL 133 07/29/2024 HDL 58 07/29/2024 TRIG 45 07/29/2024 LDLCHOL 64 07/29/2024 Endocrine Recent Labs 07/29/24 1403 TSH 0.70 Recent Labs 07/31/24 0747 07/30/24200207/30/24 1823 07/30/24 1708 07/30/24 1117 07/30/24 0740 07/29/24 2009 07/29/24 1757 07/29/24 1619 POCGLU 82 86 93 78 97 111 142 166 185 Heme No results for input(s): LDH, HAPTOGLOBIN, URICACID in the last 168 hours. ABG (Arterial Blood Gas) Recent Labs 07/30/24 0816 07/30/24 0057 07/29/24 1621 PHART 7.44 7.38 7.37 [id number] 29* 34* 36 PO2ART 109* 141* 71* [id number] 19.4* 19.5* 20.4 VBG (Venous Blood Gas) Recent Labs 07/29/24 1401 PHVEN 7.30* PO2VEN 39 [id number] 20.1* Mixed Venous Sat No results for input(s): A4WSKT5 in the last 168 hours. Microbiology: Microbiology Results (Last 30 days) Procedure Component Value Units Date/Time Blood culture [[id number]] Collected: 07/29/241607 Lab Status: Preliminary result Specimen: Blood, Venous Updated: 07/30/24 170 Blood Culture No Growth at 18-24 hrs. Blood culture [[id number]] Collected: 07/29/241607 Lab Status: Preliminary result Specimen: Blood, Venous Updated: 07/30/241700 Blood Culture No Growth at 18-24 hrs. Imaging: Results for orders placed or performed during the hospital encounter of 07/29/24 XR Chest One View (Exam End: 07/29/2024 2:30 PM) Result Value WORKSTATION ID [id number] Impression 1. No pulmonary edema. 2. No pleural effusion. 3. No pneumothorax. Thank you for letting us participate in the care of this patient. If you are a health care provider and have any questions regarding this report, please contact the number below. For patients who have questions please contact the health rn progressive care that requested your imaging first. ( 07/30/24) Interpretation Summary - Left ventricle is severely dilated. Mildly increased thickness of the basal septum with no obstruction to LV outflow. Left ventricular systolic function is moderately reduced. The left ventricular ejection fraction is 33% by Giordano's biplane. - There are segmental wall motion abnormalities. There is no left ventricular thrombus. An Impella catheter is present. The inlet area of the Impella catheter is 3.6 cm from the aortic annulus. - The right ventricle is of normal size. The distal right ventricular apex is akinetic. Global right ventricular systolic function is probably normal. The peak right ventricular systolic pressure is 32 mmHg Plus RA presssure. - The left atrium is mildly dilated. - Mild to moderate tricuspid regurgitation. - Mild mitral regurgitation. - Mild aortic regurgitation. - Compared to the overnight study by the customer operations associate fellow the impella position is stable. 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 Medications Scheduled Meds: melatonin 6 mg Oral Nightly aspirin EC 81 mg Oral Daily atorvastatin 80 mg Oral QPM clopidogreL 75 mg Oral Daily insulin lispro 1-4 Units Subcutaneous TID AC pantoprazole 40 mg Intravenous Daily Continuous Infusions: DOBUTamine 2.5 mcg/kg/min (07/31/24 0800) dextrose 5% 1,000 mL with sodium bicarbonate 25 mEq infusion 12 mL/hr at 07/31/24 0800 AMIOdarone 0.5 mg/min (07/31/24 08) heparin (porcine) infusion 7 Units/kg/hr (07/31/24 08) PRN Meds:.influenza vaccine (65 yrs +), acetaminophen, glucose 40% oral geL OR dextrose OR glucagon, potassium chloride in water OR potassium chloride in water OR potassium chloride in water, ondansetron Assessment & Plan: Korey Montoya is a 74 y.o. male w/ PMH of hypertension, HLD, and BPH on HD# 2 for chief concern of chest pain after being found to have ST elevations on EKG. Patient [place] [facility] [place] LHC and LOW to LAD for 100% occlusion. 07/31/24 His hemodynamics, and CI remained improved with decreased impella level ( P3), will plan to remove today. His TTE yesterday shows an EF of 33%, which is improved since presentation. Will continue dobutamine and amiodarone, as dobutamine is arrhythmogenic, and possible wean tomorrow based on cardiac function. He tolerated bolus diureses well yesterday hemodynamically, will continue today with goalof net even to net -1L. His leukocytosis continues to downtrend, Bcx NGTD, and lungs are clear to auscultation b/l, his drycough may be from atelectasis as he has been unable to sit up due to impella. Will continue to monitor, and encourage incentive spirometry, and trial Flonase for post-nasal drip cough. Neuro #EDISON - Awake, alert, interactive Cardiovascular #STEMI LAD, 100% occlusion s/p LOW 07/29 #Cardiogenic shock (EF ~20% during procedural TTE) #Impella Pump in place - s/p 600mg plavix load - s/p lidocaine gtt for single run of 10beat VT, DC on 07/30 - Continue plavix 75mg daily - Continue atorvastatin 80mg nightly\ - Continue amiodarone gtt, will plan to discontinue when dobutamine is discontinued - Not requiring vasoactive support, as MAP have been maintained >65 - Start bolus dirusesis, with goal of euvolemic to net negative - Plan for impella removal today, will DC heparin after #Hypertension - HOLD home losartan 25mg daily in setting of cardiogenic shock Pulmonary #EDISON #dry cough, likely 2/2 atelectasis - continue to monitor - PRN ABGs - Incentive spirometry - Start Flonase Renal/Fluid/Electrolytes #BPH - HOLDING home tamsulosin 0.04mg in setting of shock Gastrointestinal/Metabolic/Nutrition #GI prophylaxis - START protonix 40mg daily Hematology - EDISON Infection #Leukocytosis, down trending - f/ Bcx #Routine Diet: NPO diet (Give Meds) DVT Prophylaxis: Therapeutic heparin GI Prophylaxis: IV Protonix 40mg Code Status: Attempt Cardiopulmonary Resuscitation - Inpatient Dispo: Pending clinical course Susannah Ornelas MD Internal Medicine, PGY-1 Cardiology, CV 07/31/24 8:19 AM * Krystal Parker MD - 07/30/2024 1:22 PM EST Cardiovascular Critical Care Attending Note The patient seen and examined on critical care rounds. Korey Montoya is a 74 y.o. male with the following active issues:: # Anterior STEMI, late-presenting # Cardiogenic shock; Impella in place # Non-sustained ventricular tachycardia MEDICATIONS: Scheduled Meds: aspirin EC 81 mg Oral Daily atorvastatin 80 mg Oral QPM clopidogreL 75 mg Oral Daily insulin lispro 1-4 Units Subcutaneous TID AC pantoprazole 40 mg Intravenous Daily melatonin 3 mg Oral Nightly Continuous Infusions: DOBUTamine 2.5 mcg/kg/min (07/30/24 1200) dextrose 5% 1,000 mL with sodium bicarbonate 25 mEq infusion 12 mL/hr at 07/30/24 1200 AMIOdarone 1 mg/min (07/30/24 1315) heparin (porcine) infusion 16 Units/kg/hr (07/30/24 1200) EXAM: Last value Range last 24 hrs Temperature Temp: 37.4 ??C (99.3 ??F) Temp: [36.7 ??C (98.1 ??F)-37.8 ??C (100 ??F)] Heart Rate Heart Rate: 62 Heart Rate: [52-87] Blood Pressure BP: 92/70 BP: (92-115)/(53-89) Respiratory Rate Resp: 17 Resp: [9-22] SpO2 SpO2: 96 % SpO2: [91 %-100 %] Art BP BP (Arterial Line): 125/61 BP (Arterial Line): (92-130)/(59-77) Weights: Patient Vitals for the past 168 hrs: Weight 07/30/24 0513 65.4 kg (144 lb 2.9 oz) 07/29/24 1320 64.1 kg (141 lb 5 oz) Gen-Alert, conversant, no distress Skin-Cool HEENT- Anicteric sclerae Chest- Coarse anterolateral breath sounds CV-RRR; elevated JVP Abd-Soft, non-distended; no apparent tenderness Ext-No edema ASSESSMENT, MANAGEMENT, and DECISION MAKING: Mr. Montoya remains in cardiogenic shock after presenting with an anterior STEMI (appears to have presented late into course); status post PCI to the LAD and placement of an Impella. Required addition of dobutamine overnight based on low CI/CO. Will continue PA catheter-directed management and work to optimize volume status while continuing [id number] therapies at this time. Obtain comprehensive TTE. Currently on both amiodarone and lidocaine for NSVT after PCI. Will attempt to stop the lidocaine today. Discussed with his family. IS PATIENT CRITICALLY ILL? Is there a high potential of sudden, clinically significant, or life threatening deterioration? Yes Is there a need for direct personal assessment and management to treat/prevent multiple vital organfailure/deterioration? Yes PATIENT IS CRITICALLY ILL WITH THESE DIAGNOSES BEING MANAGED BY [facility] TEAM: # Anterior STEMI, late-presenting # Cardiogenic shock; Impella in place # Non-sustained ventricular tachycardia TIME spent on the unit excluding procedures: 35 mins. This includes time spent during direct patient evaluation and reassessment, interpretation of diagnostic tests, and direction of life and/or organ supporting interventions. KRYSTAL PARKER MD 07/30/2024 * Gagan Catherine MD - 07/30/2024 7:51 AM EST STAFF PROGRESS NOTE Critical Care Medicine Author: Gagan Catherine MD Patient seen and examined on critical care rounds. Korey Montoya is a 74 y.o. male with the following active issues:: Active Hospital Problems Diagnosis STEMI (ST elevation myocardial infarction) Resolved Hospital Problems No resolved problems to display. ASSESSMENT, MANAGEMENT, and DECISION MAKING: ID: Korey Montoya is a 74 y.o. male w/ PMH of hypertension, HLD, and BPH who presents for chief concern of chest pain after being found to have ST elevations on EKG. Patient [place] via air ambulance [place] [facility] [place] for LHC and LOW to LAD for 100% occlusion. TTE showed apical akinesis and inferior hypokinesis with EF 20%. RHC showed elevated filling pressures. Impella placed and P-level 6 at time of transfer to [facility]. CI initially 1.97, improved to 2.2 After impella. Received about 3 L of fluid during procedural course. Patient initially required norepinephrine 30, epinephrine 10, and vasopressin 0.04 for hemodynamic support, which was weaned upon arrival to [facility] to norepinephrine 20and levo 0.04 N - Neuro intact. Chest pain with deep breathing this morning. Initiate tylenol. P - Room air. C - STEMI s/p LOW x2. CI 2.5, SVR 1400 with dobutamine 2.5 (started overnight) and Impella @ P6 -- stay the course with tentative impella wean tomorrow pending trajectory. Legs warm, pulses present. NSR. No pressor requirement. ASA/plavix, statin. Heparin gtt. DC lido gtt, continue amio gtt. - Initiate diuresis - goal even (no edema on exam). EXAM: Physical Exam Last value Range last 24 hrs Temperature Temp: 36.7 ??C (98.1 ??F) Temp: [36.7 ??C (98.1 ??F)-37.8 ??C (100 ??F)] Heart Rate Heart Rate: 58 Heart Rate: [52-87] Blood Pressure BP: 92/70 BP: (92-115)/(53-89) Respiratory Rate Resp: 12 Resp: [9-19] SpO2 SpO2: 95 % SpO2: [93 %-100 %] Art BP BP (Arterial Line): 115/65 BP (Arterial Line): (92-120)/(59-77) Last Ht 07/30/24 167.6 cm (5' 6) Last Wt 07/30/24 65.4 kg (144 lb 2.9 oz) Body mass index is 23.27 kg/m??. IS PATIENT CRITICALLY ILL ? Is there a high potential of sudden, clinically significant, or life threatening deterioration? Yes Is there a need for direct personal assessment and management to treat/prevent multiple vital organfailure/deterioration? Yes PATIENT IS CRITICALLY ILL WITH THESE DIAGNOSES BEING MANAGED BY [facility] TEAM: Acute Myocardial Infarction STEMI, left main anterior descending I personally performed 40 minutes of aggregate critical care time exclusive of procedures and teaching. This includes time spent during direct patient evaluation and reassessment, interpreting diagnostic tests, directing life and/or organ supporting interventions and documentation on the unit. Gagan Catherine MD 07/30/2024 * Susannah Ornelas MD - 07/30/2024 6:22 AM EST Images from the original note were not included. Cardiology ICU Progress Note Patient info: Name: Korey Montoya : 1950 PCP: Yoel Artis APRN PCP phone number: [phone] Date of Admission: 07/29/2024 ( Hospital Day 1 day ) Attending:Jay Silverio MD ID: Korey Montoya is a 74 y.o. male w/ PMH of hypertension, HLD, and BPH on Hospital Day1 for chief concern of chest pain after being found to have ST elevations on EKG. Patient transferred via air ambulance [place] [facility] [place] for LHC and LOW to LAD for 100% occlusion. 24 Hour Events/Subjective: Yesterday: - Admitted to the [facility] - After his LHC, he demonstrated significant ectomy with PVCs and 10 beat run of VT, which promptedinitiation of amiodarone and lidocaine gtt - Yesterday evening, he reported chest discomfort and nausea, he described as much less severe thenat time of presentation, prompting EKG and trending of trops Overnight: - Continued on lidocaine 2 and amiodarone, levo and vaso titrated to off - CI decreased to 1.8, 1.5 by THOMAS, then 1.6. Dobutamine initiated(2.5), Impella maintained on P6 - Perez was placed - Nausea, zofran and benadryl given This AM: -- Reports chest pain with deep inspiration, denies nausea or dyspnea Vasoactive & Sedating Medications: Infusions: Continuous Infusions: DOBUTamine 2.5 mcg/kg/min (07/30/24 1000) NORepinephrine Stopped (07/30/24 1000) AMIOdarone 33.3 mL/hr at 07/29/24 1400 vasopressin Stopped (07/29/24 1900) dextrose 5% 1,000 mL with sodium bicarbonate 25 mEq infusion 12 mL/hr at 07/30/24 1000 AMIOdarone 1 mg/min (07/30/24 1000) heparin (porcine) infusion 13 Units/kg/hr (07/30/24 1000) Ventilator Settings: NA Mode: , SET RR: TV: PEEP: FiO2: VARIABLES PATIENT RR: PIP: Pplateau: SpO2: OUTPUT Resp: 22 SpO2: 96 % ABG (Arterial Blood Gas) Recent Labs 07/30/24 0816 07/30/24 0057 07/29/24 1621 PHART 7.44 7.38 7.37 [id number] 29* 34* 36 PO2ART 109* 141* 71* [id number] 19.4* 19.5* 20.4 VBG (Venous Blood Gas) Recent Labs 07/29/24 1401 PHVEN 7.30* PO2VEN 39 [id number] 20.1* Lactate ( Last 12 hours) 1.3 >> 1.2 Mixed Venous Sat No results for input(s): [id number] in the last 168 hours. PA Catheter #'s PA Catheter PAP (mmHg): 44/18 (07/30/24 1000) PAP (mean): 26 (07/30/24 1000) CO (l/min): 4.1 l/min (07/30/24 0840) CI (l/min/m2): 2.4 l/min/m2 (07/30/24 0840) SVR (dyne*sec)/cm2: 1342 (dyne*sec)/cm2 (07/30/24 0840) SVRI (dyne*sec)/cm2: 2295 (dyne*sec)/cm5 (07/30/24 0840) Stroke Volume (ml): 68.5 ml (07/30/24 0840) CVP (mmHg): 11 mmHg (07/30/24 1000) @4AM CVP 12 PA 47/18 mean 28 CO 3.9 CI 2.3 SVR 1452 Objective: Vitals Last value Range last 24 hrs Temperature Temp: 37.1 ??C (98.8 ??F) Temp: [36.7 ??C (98.1 ??F)-37.8 ??C (100 ??F)] Heart Rate Heart Rate: 63 Heart Rate: [52-87] Blood Pressure BP: 92/70 BP: (92-115)/(53-89) Art Line BP BP (Arterial Line): 120/63 BP (Arterial Line): (92-130)/(59-77) MAP (NBP): [69 mmHg-99 mmHg] Respiratory Rate Resp: 22 Resp: [9-22] SpO2 SpO2: 96 % SpO2: [91 %-100 %] Oxygen Delivery Oxygen Therapy O2 Device: None (Room air) O2 Flow Rate (L/min): 2 L/min Intake/Output Summary (Last 24 hours) at 07/30/2024 1041 Last data filed at 07/30/2024 1000 Gross per 24 hour Intake 3510.86 ml Output 1130 ml Net 2380.86 ml Patient Vitals for the past 168 hrs: Weight 07/30/24 0513 65.4 kg (144 lb 2.9 oz) 07/29/24 1320 64.1 kg (141 lb 5 oz) Admit wt: 64.1 kg Physical Exam: Gen: in bed in NAD. Alert, interactive HEENT: anicteric, EOMI intact, CV: Bradycardic, no murmurs/rubs/gallops, Impella @P6 Resp: CTAB, no crackles/wheezes/ronchi, normal work of breathing Abd: normal bowel sounds, soft, non-tender to palpation, no rebound or guarding, impella site dressing C/D/I Ext: toes warm, no pedal edema, palpable pedal pulses Neuro: no focal deficits noted, CN II-XII grossly intact, moves all extremities spontaneously, alert and oriented Psych: cooperative. Skin: no rashes, lesions, or ulcerations noted Lines/Drains/Airways Lines: Pulmonary Artery Catheter 07/29/24 1300 standard thermodilution catheter Right femoral vein (Active) Venous Infusion Patency/Maintenance infusing 07/29/241999 CVP/CO Port Patency/Maintenance infusing 07/29/241999 PA Port Patency/Maintenance infusing 07/29/241999 Site Preparation/Maintenance dressing: dry and intact 07/30/24599 Securement catheter securement device utilized 07/29/241999 PA Catheter Markings (cm) 70 07/29/241999 Phlebitis 0-->no symptoms 07/30/24599 Infiltration 0-->no symptoms 07/30/24599 Waveform normal 07/30/24599 Pressure Catheter Interventions line leveled/zeroed;system flushed 07/29/241999 Daily Review Of Necessity completed 07/29/241999 PIV 07/29/24 1300 18 gauge basilic vein (medial side of arm), left (Active) Indication/Daily Review of Necessity medication therapy continuous 07/29/241999 Site Preparation/Maintenance dressing: dry and intact 07/30/24599 Securement catheter stabilization device, secured with 07/29/241999 Patency/Maintenance flushed without difficulty 07/29/241999 Dressing change due 08/05/24 07/29/24 1400 Phlebitis 0-->no symptoms 07/30/24599 Infiltration 0-->no symptoms 07/30/24599 Site Signs/Symptoms no redness;no swelling;no warmth;no pain;no palpable cord;no streak formation;no drainage 07/29/241999 PIV 07/29/24 1300 18 gauge cephalic vein (lateral side of arm), left (Active) Indication/Daily Review of Necessity fluid therapy intermittent;medication therapy intermittent 07/29/241999 Site Preparation/Maintenance dressing: dry and intact 07/30/24599 Securement site guard in place 07/29/241999 Patency/Maintenance flushed without difficulty 07/29/241999 Dressing change due 07/29/24 07/29/24 1400 Phlebitis 0-->no symptoms 07/30/24599 Infiltration 0-->no symptoms 07/30/24599 Site Signs/Symptoms no redness;no swelling;no warmth;no pain;no palpable cord;no streak formation;no drainage 07/29/241999 LDA Cath/EP Sheath 07/29/24 Right Femoral (Active) Site Assessment Clean;Dry;Intact 07/30/24 0600 Line Status Infusing 07/30/24 0600 Dressing Status Clean;Dry;Intact 07/30/24 0600 Dressing Change Due 08/05/24 07/29/24 1400 LDA Cath/EP Sheath 07/29/24 Proximal;Right Femoral (Active) Site Assessment Clean;Dry;Intact 07/30/24 0600 Line Status Infusing 07/30/24 0600 Dressing Status Clean;Dry;Intact 07/30/24 0600 Dressing Intervention New 07/29/24 1400 Dressing Change Due 08/05/24 07/29/24 1400 Arterial Line 07/29/24 1800 radial artery, left (Active) Daily Review Of Necessity completed 07/29/241999 Dressing dressing dry and intact 07/30/24 06 Arterial Catheter Securement secured with sterile tape strips 07/29/241999 Lumen Patency/Care flushed without difficulty;blood return present 07/29/241999 Waveform normal 07/30/24599 Phlebitis 0-->no symptoms 07/30/24599 Infiltration 0-->no symptoms 07/30/24599 Site Signs/Symptoms no redness;no swelling;no warmth;no pain;no palpable cord;no streak formation;no drainage 07/29/241999 Pressure Catheter Interventions line leveled/zeroed;system flushed 07/29/241999 Labs: Recent Labs 07/30/24 0211 07/29/24 1403 07/29/24 1246 07/29/24 1212 WBC 11.25* 19.50* -- -- HGB 12.2* 13.1* -- -- HCT 37.1* 40.1* 39.0* 36.0* PLATELET 166 236 -- -- MCV 82.4* 83.4 -- -- Recent Labs 07/30/24 0211 07/29/24201007/29/24 1403 NA 135 -- 138 CL 105 -- 104 CO2 19* -- 19* K 4.9 4.1 3.6 MAGNESIUM 1.01 -- 0.70 PHOS -- 2.1* 2.5 CALCIUM 7.7* -- 8.0* BUN 15 -- 13 CREATININE 0.88 -- 0.88 LFTs Recent Labs 07/29/24 1403 PROT 6.0* ALBUMIN 3.6 ALT 56* ALKPHOS 58 BILITOT 0.5 Coags Recent Labs 07/29/24 1403 INR 1.3 PT 14.2* PTT >160* Cardiac Enzymes No results for input(s): CK, TROPONINT, PROBNP in the last 168 hours. Recent Labs 07/30/24 0809 07/29/24 2231 07/29/242010 TROPONINTHS 8,651* >10,000* >10,000* Recent Labs 07/29/24 1403 TSH 0.70 Recent Labs 07/29/24 1403 HA1C 5.3 Lab Results Component Value Date CRP <3.0 07/29/2024 Lab Results Component Value Date CHLPL 133 07/29/2024 HDL 58 07/29/2024 TRIG 45 07/29/2024 LDLCHOL 64 07/29/2024 Endocrine Recent Labs 07/29/24 1403 TSH 0.70 Recent Labs 07/30/24 0740 07/29/24 2009 07/29/24 1757 07/29/24 1619 POCGLU 111 142 166 185 Heme No results for input(s): LDH, HAPTOGLOBIN, URICACID in the last 168 hours. ABG (Arterial Blood Gas) Recent Labs 07/30/24 0816 07/30/24 0057 07/29/24 1621 PHART 7.44 7.38 7.37 [id number] 29* 34* 36 PO2ART 109* 141* 71* [id number] 19.4* 19.5* 20.4 VBG (Venous Blood Gas) Recent Labs 07/29/24 1401 PHVEN 7.30* PO2VEN 39 [id number] 20.1* Mixed Venous Sat No results for input(s): X2EIBC3 in the last 168 hours. Microbiology: Microbiology Results (Last 30 days) Procedure Component Value Units Date/Time Blood culture [[id number]] Collected: 07/29/24 1608 Lab Status: In process Specimen: Blood, Venous Updated: 07/29/24 162 Blood culture [[id number]] Collected: 07/29/241607 Lab Status: In process Specimen: Blood, Venous Updated: 07/29/24 161 Imaging: Results for orders placed or performed during the hospital encounter of 07/29/24 XR Chest One View (Exam End: 07/29/2024 2:30 PM) Result Value WORKSTATION ID [id number] Impression 1. No pulmonary edema. 2. No pleural effusion. 3. No pneumothorax. Thank you for letting us participate in the care of this patient. If you are a health care provider and have any questions regarding this report, please contact the number below. For patients who have questions please contact the health rn progressive care that requested your imaging first. Medications Scheduled Meds: aspirin EC 81 mg Oral Daily atorvastatin 80 mg Oral QPM clopidogreL 75 mg Oral Daily insulin lispro 1-4 Units Subcutaneous TID AC pantoprazole 40 mg Intravenous Daily melatonin 3 mg Oral Nightly Continuous Infusions: DOBUTamine 2.5 mcg/kg/min (07/30/24 1000) NORepinephrine Stopped (07/30/24 1000) AMIOdarone 33.3 mL/hr at 07/29/24 1400 vasopressin Stopped (07/29/24 1900) dextrose 5% 1,000 mL with sodium bicarbonate 25 mEq infusion 12 mL/hr at 07/30/24 1000 AMIOdarone 1 mg/min (07/30/24 1000) heparin (porcine) infusion 13 Units/kg/hr (07/30/24 1000) PRN Meds:.influenza vaccine (65 yrs +), acetaminophen, verapamiL, nitroGLYcerin, fentaNYL (PF), midazolam (PF), heparin (porcine), NORepinephrine, AMIOdarone, AMIOdarone, vasopressin, iohexoL, glucose 40% oral geL OR dextrose OR glucagon, potassium chloride in water OR potassium chloride in water OR potassium chloride in water, ondansetron Assessment & Plan: Korey Montoya is a 74 y.o. male w/ PMH of hypertension, HLD, and BPH on HD# 1 for chief concern of chest pain after being found to have ST elevations on EKG. Patient [place] air ambulance [place] [facility] [place] LHC and LOW to LAD for 100% occlusion. 07/30/24 Overnight due to decreased CI (1.6), dobutamine was initiated, since his CI has improved, with mostrecent to 2.4, will maintain impella at P6, and continue dobutamine. Will obtain a TTE with contrast for further evaluation of heart function, and to evaluate for LV thrombus as there was minimal apical wall motion on bedside TTE performed on admission. Overnight he had no further ectopy or runs for VT, and was bradycardic (50s) will plan to stop lidocaine today, and continue amiodarone, and transition to maintenance dose after 24 hours load is complete. He is net positive with low UOP, will initiate IV lasix bolus with net goal of euvolemic to slight negative. Leukocytosis is down trending and with normal level of CRP, will hold off on antibiotic initiation but will continue to follow Bcx, and monitor for signs of infection. Leukocytosis on presentation islikely reactive in setting of STEMI and cardiogenic shock. Neuro #EDISON - Awake, alert, interactive Cardiovascular #STEMI LAD, 100% occlusion s/p LOW 07/29 #Cardiogenic shock (EF ~20% during procedural TTE) #Impella Pump in place - s/p 600mg plavix load - Continue plavix 75mg daily - Continue atorvastatin 80mg nightly - Continue amiodarone gtt load, will transition to maintenance dose after 24 hrs of loading dose - Discontinue Lidocaine, was started on 07/29 for frequent PVCs - Not requiring vasoactive support, as MAP have been maintained >65 - CONTINUE heparin gtt for Impella - GIVING albumin 5% 250cc bottles PRN - f/ TTE - Start bolus dirusesis, with goal of euvolemic to net negative - Repeat BMP, mg, PO4 this afternoon #Hypertension - HOLD home losartan 25mg daily in setting of cardiogenic shock Pulmonary #EDISON - continue to monitor - PRN ABGs Renal/Fluid/Electrolytes #BPH - HOLDING home tamsulosin 0.04mg in setting of shock Gastrointestinal/Metabolic/Nutrition #GI prophylaxis - START protonix 40mg daily Hematology - EDISON Infection #Leukocytosis, down trending - f/ Bcx #Routine Diet: NPO diet (Give Meds) DVT Prophylaxis: Therapeutic heparin GI Prophylaxis: IV Protonix 40mg Code Status: Attempt Cardiopulmonary Resuscitation - Inpatient Dispo: Pending clinical course Family updated today bedside and over the phone ( Daughter Parvin) Susannah Ornelas MD Internal Medicine, PGY-1 Cardiology, [facility] 07/30/24 10:41 AM documented in this encounter H&P Notes * Bridgette Stauffer MD - 08/02/2024 12:44 PM EST Cardiology Admission H&P Patient Name: Korey Montoya Date of : 1950 Age: 74 y.o. Hospital Admit Date: 07/29/2024 Inpatient Attending: Bridgette Stauffer MD PCP: Alexia Mtz APRN Presenting Diagnosis/Chief Complaint: chest pain/STEMI Active Problem List: Active Hospital Problems Diagnosis STEMI (ST elevation myocardial infarction) Resolved Hospital Problems No resolved problems to display. History of Present Illness: Korey Montoya is a 74 y.o. male w/ PMH of hypertension, HLD, and BPH who presents for chief concern of chest pain after being found to have ST elevations on EKG. Patient transferred via air ambulance [place] [facility] [place] for LHC and LOW to LAD for 100% occlusion. Patient tells me that about 2 weeks prior to the presentation has been having intermittent episodesof left upper extremity pain radiating all the way down to the forearm associated with chest tightness, lasted for 5 minutes or so and resolved, thought this was indigestion and eventually urgent care on Tuesday night, and the workup was negative at that time. On Tuesday,2 hours episode of chest painthat spontaneously resolved, 07/28/2024 and was very bad. On 07/29/2024 morning, suddenly at 6:30 began having substernal chest pain along with bilateral arm discomfort. Attempted to burp and vomit, concerning this was due to gas, noting pain was severe 8/10. Aching in character. Waited for pain to spontaneously resolve (noting previous episodes of chest pain without activity). As pain did not resolve, presented to OSH at approximately 9:30 AM. He was Found to have anterior, inferior, and lateral ST elevation on EKG. Was transferred via air ambulance [place] [facility] [place] management and [facility] demo nstrated 100% occlusion. No significant RCA, LMCA, or LCX disease. LOW placed in LAD with some residual distal disease meriting placement of overlapping distal stent. TTE showed apical akinesis and inferior hypokinesis with EF 20%. RHC showed elevated filling pressures. Impella placed and P-level 6 at time of transfer to [facility]. CI initially 1.97, improved to 2.2 After impella. Received about 3 L of fluid during procedural course. Patient initially required norepinephrine, epinephrine, and vasopressin for hemodynamic support, which was weaned upon arrival to [facility] to norepinephrine 20 and levo 0.04 (epinephrine discontinued) and eventually was on dobutamine which was discontinued, 08/01/2020 4 AM. Discussing the case with the [facility] team this afternoon, patient is stable to be downgraded to floor level of care. Has been started on losartan, recommending GDMT initiation as tolerated and possible discharge in a.m. Patient denies any chest pain at this time. Has been ambulating well without any chest pain or shortness of breath. Sometimes states it hurts to take deep breaths. With no active complaints at this time. Has been tolerating p.o. Denies any pain in his right groin or swelling. No focal weakness or paresthesias. Past Medical History: Past Medical History: Diagnosis Date ADHD HLD (hyperlipidemia) HTN (hypertension) Tremor Surgical History/Problems: Past Surgical History: Procedure Laterality Date HAND SURGERY PRO COLONOSCOPY, REMV LESN, SNARE N/A 08/30/2023 COLONOSCOPY, POLYPECTOMY, REMOVAL LESION BY SNARE (WRVU 4.57) performed by Brandan Mcgovern MD [facility] ENDOSCOPY Significant Family History: Family History Problem Relation Age of Onset Colorectal Cancer Neg Hx Inflammatory Bowel Disease Neg Hx Celiac Disease Neg Hx Esophageal Cancer Neg Hx Stomach Cancer Neg Hx Pancreatic Cancer Neg Hx Social History: Social History Socioeconomic History Marital status: Civil Union Spouse name: Not on file Number of children: Not on file Years of education: Not on file Highest education level: Not on file Occupational History Not on file Tobacco Use Smoking status: Former Types: Cigarettes Smokeless tobacco: Never Vaping Use Vaping status: Never Used Substance and Sexual Activity Alcohol use: Not Currently Drug use: Not Currently Sexual activity: Not on file Other Topics Concern Not on file Social History Narrative Not on file Social Determinants of Health Financial Resource Strain: Not on file Food Insecurity: No Food Insecurity (07/30/2024) Hunger Vital Sign Worried About Running Out of Food in the Last Year: Never true Ran Out of Food in the Last Year: Never true Transportation Needs: No Transportation Needs (07/30/2024) PRAPARE - Transportation Lack of Transportation (Medical): No Lack of Transportation (Non-Medical): No Physical Activity: Not on file Intimate Partner Violence: At Risk (07/30/2024) IPV Inpatient Questions Prevent Contact with Others: no Feels Threatened by Someone: no Feels Unsafe at Home: yes Physical Signs of Abuse Present: no Housing Stability: Low Risk (07/30/2024) Housing Stability Vital Sign Unable to Pay for Housing in the Last Year: No Number of Times Moved in the Last Year: 0 Homeless in the Last Year: No REVIEW OF SYSTEMS: Review of Systems Constitutional: Negative. HENT: Negative. Respiratory: Negative. Cardiovascular: Negative. Gastrointestinal: Negative. Genitourinary: Negative. Musculoskeletal: Negative. Neurological: Negative. Medications: Medications Prior to Admission Medication Sig Dispense Refill Last Dose tamsulosin (Flomax) 0.4 mg capsule Take 0.8 mg by mouth daily. 07/28/2024 losartan (Cozaar) 25 mg tablet Take 25 mg by mouth daily. 07/28/2024 simvastatin (Zocor) 20 mg tablet Take 20 mg by mouth every evening. 07/28/2024 Psyllium Seed-Sucrose (0) Powder Take by mouth. Past Week nitroGLYcerin (NITROLINGUAL) 400 mcg/spray Coleridge, Non-Aerosol 1 spray to anus for proctalgia fugax as needed, not to exceed once daily 12 g 0 Unknown Allergies: No Known Allergies PHYSICAL EXAM: Last set of vital signs: BP 107/78 (BP Location (NBP): Left arm) Pulse 81 Temp 37 ??C (98.6 ??F) (Oral) Resp 14 Ht 167.6 cm (5' 6) Wt 62.3 kg (137 lb 5.6 oz) SpO2 98% BMI 22.17 kg/m?? Physical Exam General-alert and oriented x 3, not in acute respiratory distress HEENT-atraumatic normocephalic, pupils bilaterally equal and reactive, no JVD Heart-S1-S2 present, regular in rate and rhythm, no murmurs gallops or rubs Respiratory-bilateral breath sounds normal, no rhonchi or wheeze Abdomen- soft, non tender, + BS Neuro- No focal neurological deficits Extremities- B/L Pulses 2+, no edema Skin- normal Right groin site-no hematoma or bruit Diagnostics: Left and right heart catheterization, 07/29/2024 Hemodynamics: Right Heart Pressures Resting: Syst Diast EDP a v m RA 18 20 16 RV 52 17 PA 45 20 33 PCW 28 40 27 Hemodynamic Profile: Profile 1 CO 3.36 CI 1.95 TSR 1,810 SVR 1,429 TPR 786 PVR 143 Technique Estimated Thomas Left Heart Pressures Resting: Syst Diast EDP a v m Ao 99 58 76 LA 31 29 17 Hemodynamics After impella: Right Heart Pressures Post Intervention: Syst Diast EDP a v m RA 15 14 11 RV 54 14 PA 40 13 22 PCW 31 27 22 Hemodynamic Profile: Profile 1 CO 4.76 CI 2.77 TSR 1,244 SVR 1,059 TPR 370 Technique Estimated Thomas Left Heart Pressures Post Intervention: Syst Diast EDP a v m Ao 99 54 74 Oximetry: Location %Sat Location %Sat Main Pulmonary Artery 65.0 Peripheral Arterial 99.0 Coronary Angiography: Dominance: Right Left Main The left main was normal, free of disease. Left Anterior Descending There was a single discrete total occlusion of the proximal segment of the left anterior descending artery (LAD). Left Circumflex The left circumflex (LCX) was normal, free of disease. Right Coronary Artery The right coronary artery (RCA) was normal, free of disease. Intravascular Imaging/Physiology: Intravascular Ultrasound was performed in the proximal LAD using a 6 Fr EBU 3.5 guiding catheter and a 3.5 Fr [address] 20 Mhz using Manual pullback. Imaging was successful. Image quality was excellent. Indication: IVUS performed for pre intervention planning and post intervention assessment. IVUS performed after vessel manipulation. Findings Pre-Intervention: diffuse plaque. Findings Post-Intervention: The stent was well expanded and apposed. Conclusions: stent/intervention appears optimized. Indication for Intervention: Coronary intervention was indicated for primary therapy for an acute myocardial infarction. The priority for the procedure was Emergent. [facility] procedure was STEMI-Immediate PCI for Acute STEMI. STEMI onset was 07/29/2024. LVEF within one week was 20%. Cardiopulmonary support was initiated for cardiogenic shock - post PCI and Right Heart catheterization was initiated for Cardiomyopathy, unspecified (I42.9). Intervention Summary: Left Anterior Descending Artery Proximal 100% Stent insertion was performed on the total occlusion in the proximal segment of the LAD. This was a de merlene lesion. According to the ACC/AHA classification system, this lesion was a type C high risk lesion. Primary prevention of restenosis was the indication for stent insertion. This was the culprit lesion. A guidewire was placed across this lesion. Vessel flow pre intervention was LIZ 0. Lesion length was 30mm. Stent insertion was accomplished through a 6 Fr. EBU 3.5 guide. The lesion was predilated with a 2.00mm EUPHORA 15 MM balloon with a maximum inflation pressure of 12 atmospheres. A premounted 3.00 x 22 mm Reese [place] (LOW) was deployed with a maximum inflation pressure of 14 atmospheres. Following stent deployment, the lesion was dilated using a 3.50mm NC EUPHORA 20 MM balloon with a maximum inflation pressure of 16 atmospheres. Another stent insertion was accomplished through a 6 Fr. EBU 3.5 guide. The lesion was predilated with a 2.00mm EUPHORA 15 MM balloon with a maximum inflation pressure of 12 atmospheres. A premounted 3.00 x 08 mm [place] (LOW) was deployed with a maximum inflation pressure of 14 atmospheres. Following stent deployment, the lesion was dilated using a 3.50mm NC EUPHORA 20 MM balloon with a maximum inflation pressure of 16 atmospheres. The final outcome was defined as successful. There was no residual stenosis following this intervention. The final LIZ flow was 3. Limited echo, 07/30/2024 Interpretation Summary This is a limited study performed by a fellow customer operations associate to evaluate for cardiogenic shock with impella [...] is no prior study available for comparison. 2D echocardiogram, 07/30/2024 interpretation Summary Left ventricle is severely dilated. Mildly [...] Compared to the overnight study by the customer operations associate fellow the impella position is stable. 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 LABS: Recent Results (from the past 24 hour(s)) POC, GLUCOSE Result Value Ref Range Glucometer, POC 99 65 - 199 mg/dL POC, GLUCOSE Result Value Ref Range Glucometer, POC 112 65 - 199 mg/dL Potassium Result Value Ref Range Potassium 4.0 3.5 - 5.0 mMol/L Basic Metabolic Panel Result Value Ref Range Glucose 110 65 - 199 mg/dL Blood Urea Nitrogen 12 10 - 20 mg/dL Creatinine 0.90 0.80 - 1.50 mg/dL Sodium 139 135 - 145 mMol/L Potassium 4.0 3.5 - 5.0 mMol/L Chloride 108 (H) 98 - 107 mMol/L Carbon Dioxide 23 22 - 31 mMol/L Anion Gap 8 5 - 15 mMol/L Calcium 8.1 (L) 8.5 - 10.5 mg/dL Est Glomerular Filtration Rate - Male 91 mL/min/1.73 m?? Magnesium Result Value Ref Range Magnesium 0.79 0.69 - 1.07 mMol/L CBC (with Diff) Result Value Ref Range White Blood Cell 8.51 4.00 - 9.50 x10(3)/mcL Red Blood Cell 4.41 (L) 4.58 - 5.54 x10(6)/mcL Hemoglobin 12.2 (L) 13.7 - 16.5 g/dL Hematocrit 35.8 (L) 40.5 - 48.5 % Mean Cell Volume 81.2 (L) 82.9 - 93.1 fL Mean Cell Hemoglobin 27.7 27.5 - 32.1 pg Mean Cell Hemoglobin Concentration 34.1 32.0 - 35.7 g/dL Platelet 111 (L) 145 - 357 x10(3)/mcL Mean Platelet Volume 11.1 7.6 - 12.9 fL RDW Standard Deviation 41.9 36.0 - 45.0 fL RDW coefficient of variation 14.1 (H) 11.4 - 13.8 % NRBC% auto 0.0 % NRBC Absolute <0.01 <0.01 x10(3)/mcL Neutrophil % 77.7 % Neutrophil Absolute (ANC) - Automated 6.62 (H) 1.70 - 6.10 x10(3)/mcL Lymph % 11.9 % Lymph Absolute 1.01 0.90 - 3.20 x10(3)/mcL Monocyte % 8.2 % Monocyte Absolute 0.70 0.30 - 0.90 x10(3)/mcL Eos % 1.4 % Eos Absolute 0.12 0.00 - 0.40 x10(3)/mcL Basophil % 0.4 % Baso Absolute <0.04 0.00 - 0.10 x10(3)/mcL Immature Gran % 0.4 % Immature Gran Absolute <0.04 0.00 - 0.04 x10(3)/mcL POC, GLUCOSE Result Value Ref Range Glucometer, POC 89 65 - 199 mg/dL ASSESSMENT: Korey Montoya is a 74 y.o. male w/ PMH of hypertension, HLD, and BPH who presents for chief concern of chest pain after being found to have ST elevations on EKG. Patient transferred via air ambulance [place] [facility] [place] for LHC and LOW to LAD for 100% occlusion. TREATMENT PLAN: # STEMI, status post PCI to LAD # ASCVD # Ischemic cardiomyopathy, EF of 33% # Cardiogenic shock-resolved -Patient needed inotropic and pressor support on presentation, currently off dobutamine for the last 24 hours. Status post left heart catheterization, 07/29/2024, LOW to LAD for 100% occlusion. Currently off the Impella, continue with aspirin 81 mg daily, Plavix 75 mg daily, atorvastatin 80 mg daily. To continue with dual antiplatelet therapy for at least 1 year, will need outpatient follow-up with cardiology and 2D echo cardiogram outpatient. LDL-64, A1c-5.3 Patient is currently hemodynamically stable on room air. Heart rates ranging between 60s to 90s, will start on metoprolol tartrate 12.5 mg twice daily, if stable blood pressures, recommend switching to succinate in AM. On losartan 25 mg daily, blood pressures ranging between 100s to 130s systolic, stable renal function, uptitrate as tolerated. To add SGLT2 inhibitor prior to discharge. -Will add spironolactone 12.5 mg daily in AM if stable blood pressures. -Was on amiodarone infusion which has been discontinued. -Did receive Lasix IV, 40 mg x 1, 20 mg x 1, last dose, 08/01/2024. Patient is currently euvolemic,no indication for diuretics at this time. # Hypertension # Hyperlipidemia # BPH Continue with losartan 25 mg daily, home dose, tamsulosin 0.4 mg daily, was on pravastatin at home,currently on atorvastatin, will continue the same. # DVT prophylaxis-Lovenox # CODE STATUS-full code # Cardiac diet # Disposition-likely discharge in a.m. Provider: Bridgette Stauffer MD Provider #: [id number] 08/02/2024 * Jay Silverio MD - 07/29/2024 2:10 PM EST Images from the original note were not included. Cardiology ICU H&P Patient info: Name: Korey Montoya : 1950 PCP: Yoel Artis APRN PCP phone number: [phone] Date of Admission: 07/29/2024 ( Hospital Day 0 days ) Attending:Jay Silverio MD ID: Korey Montoya is a 74 y.o. male w/ PMH of hypertension, HLD, and BPH who presents for chief concern of chest pain after being found to have ST elevations on EKG. Patient transferred via air ambulance [place] [facility] [place] for LHC and LOW to LAD for 100% occlusion. HPI: Korey Montoya is a 74 y.o. male w/ PMH of hypertension, HLD, and BPH who presents for chief concern of chest pain after being found to have ST elevations on EKG. Patient transferred via air ambulance to [facility] [place] 07[place] for LHC and LOW to LAD for 100% occlusion. 2 hours episode yesterday of chest pain that spontaneously resolved. Then awoke this AM at approximately 0600 asymptomatic. Then suddenly at 6:30 began having substernal chest pain along with bilateral arm discomfort. Attempted to burp and vomit, concerning this was due to gas, noting pain was severe 8/10. Aching in character. Waited for pain to spontaneously resolve (noting previous episodes of chest pain without activity). As pain did not resolve, presented to OSH at approximately 9:30 AM. Hewas Found to have anterior, inferior, and lateral ST elevation on EKG. Was transferred via air ambulance [place] [facility] [place] further management and LHC demonstrated 100% occlusion. No significant RCA, LMCA, or LCX disease. LOW placed in LAD with some residual distal disease meriting placement of overlapping distal stent. TTE showed apical akinesis and inferior hypokinesis with EF 20%. RHC showed elevated filling pressures. Impella placed and P-level 6 at time of transfer to [facility]. CI initially 1.97, improved to 2.2 After impella. Received about 3 L of fluid during procedural course. Patient initially required norepinephrine 30, epinephrine 10, and vasopressin 0.04 for hemodynamic support, which was weaned upon arrival to [facility] to norepinephrine 20 and levo 0.04 (epinephrine discontinued) Patient reports ongoing substernal chest pain/pressure at time of arrival to [facility] at approximately 1400 that nearly abated during initial 15 minutes following arrival. Review of Systems (positives in bold) As above General: chills, fatigue, fever or night sweats, Diaphoresis (mild) Eye: blurry vision, double vision, loss of vision or photophobia HENT: headaches, sore throat or vertigo Heme/Lymph: Bleeding/bruising, blood clots, jaundice, pallor or swollen lymph nodes Resp: cough, hemoptysis, orthopnea, shortness of breath or wheezing Cardio: chest pain, dyspnea on exertion, edema, loss of consciousness, palpitations, paroxysmal nocturnal dyspnea or shortness of breath Gastro: abdominal pain, blood in stools, constipation, diarrhea, heartburn, hematemesis, melena or nausea/vomiting : dysuria, hematuria or urinary frequency/urgency MSK: joint pain, joint stiffness, joint swelling, muscle pain or muscular weakness Neuro:dizziness, gait disturbance, impaired coordination/balance, memory loss, numbness/tingling, seizures, speech problems, tremors or visual changes Derm: lumps or rash PMH Past Medical History: Diagnosis Date ADHD HLD (hyperlipidemia) HTN (hypertension) Tremor PSH Past Surgical History: Procedure Laterality Date HAND SURGERY PRO COLONOSCOPY, REMV LESN, SNARE N/A 08/30/2023 COLONOSCOPY, POLYPECTOMY, REMOVAL LESION BY SNARE (WRVU 4.57) performed by Brandan Mcgovern MD [facility] ENDOSCOPY Family History Family History Problem Relation Age of Onset Colorectal Cancer Neg Hx Inflammatory Bowel Disease Neg Hx Celiac Disease Neg Hx Esophageal Cancer Neg Hx Stomach Cancer Neg Hx Pancreatic Cancer Neg Hx Social History Social History Socioeconomic History Marital status: Civil Union Spouse name: Not on file Number of children: Not on file Years of education: Not on file Highest education level: Not on file Occupational History Not on file Tobacco Use Smoking status: Former Types: Cigarettes Smokeless tobacco: Never Vaping Use Vaping status: Never Used Substance and Sexual Activity Alcohol use: Not Currently Drug use: Not Currently Sexual activity: Not on file Other Topics Concern Not on file Social History Narrative Not on file Social Determinants of Health Financial Resource Strain: Not on file Food Insecurity: Not on file Transportation Needs: Not on file Physical Activity: Not on file Intimate Partner Violence: Not on file Housing Stability: Not on file CODE: Full code DPOA: Litzy BARKER Alcohol: not for 42 years Tobacco: none Recreational: no recreational drugs Allergies: No Known Allergies Meds atorvastatin 80 mg Oral QPM [START ON 07/30/2024] clopidogreL 75 mg Oral Daily insulin lispro 1-4 Units Subcutaneous TID AC pantoprazole 40 mg Intravenous Daily albumin, human 5% 12.5 g Intravenous Once AMIOdarone magnesium sulfate 2 g Intravenous Once magnesium Sulfate lidocaine (pf) verapamiL, nitroGLYcerin, fentaNYL (PF), midazolam (PF), heparin (porcine), NORepinephrine, EPINEPHrine in dextrose 5%, AMIOdarone, AMIOdarone, vasopressin, iohexoL, glucose 40% oral geL OR dextrose OR glucagon, AMIOdarone, heparin (porcine) infusion AND heparin (porcine), magnesium Sulfate, lidocaine (pf) Vasoactive & Sedating Medications: Infusions: Continuous Infusions: NORepinephrine 20 mcg/min (07/29/24 1315) EPINEPHrine in dextrose 5% Stopped (07/29/24 1446) AMIOdarone 1 mg/min (07/29/24 1239) vasopressin 0.04 Units/min (07/29/24 1240) dextrose 5% 1,000 mL with sodium bicarbonate 25 mEq infusion NORepinephrine Stopped (07/29/24 1500) vasopressin AMIOdarone heparin (porcine) infusion lidocaine Objective: Vitals Last value Range last 24 hrs Temperature Temp: -- Heart Rate Heart Rate: -- Blood Pressure BP: -- Art Line BP BP (Arterial Line): -- MAP (NBP): -- Respiratory Rate Resp: -- SpO2 SpO2: -- Oxygen Delivery Oxygen Therapy O2 Device: Nasal cannula O2 Flow Rate (L/min): 2 L/min Ventilator Settings: Mode: , SET RR: TV: PEEP: FiO2: VARIABLES PATIENT RR: PIP: Pplateau: SpO2: OUTPUT ABG (Arterial Blood Gas) No results for input(s): PHART, TWE8WCF, PO2ART, POJ3LOB, LACTATEVEN, IBF9YHD, PFRATIOART2 in the last 168 hours. VBG (Venous Blood Gas) Recent Labs 07/29/24 1401 PHVEN 7.30* PO2VEN 39 JMA3ZDT 20.1* Mixed Venous Sat No results for input(s): P2WXPO8 in the last 168 hours. PA Catheter #'s No intake or output data in the 24 hours ending 07/29/24 1514 Patient Vitals for the past 168 hrs: Weight 07/29/24 1320 64.1 kg (141 lb 5 oz) Admit wt: 64.1 kg Physical Exam: Gen: in bed in NAD. Awake, alert, oriented, and conversant HEENT: anicteric, EOMI intact, CV: RRR, no murmurs/rubs/gallops, frequent dropped beats Resp: CTAB, no crackles/wheezes/ronchi, normal work of breathing Abd: normal bowel sounds, soft, non-tender to palpation, no rebound or guarding Ext: DP pulses audible with doppler, no pedal edema Neuro: no focal deficits noted, CN II-XII grossly intact, moves all extremities spontaneously Psych: cooperative. Skin: no rashes, lesions, or ulcerations noted Lines/Drains/Airways Lines: LDA Cath/EP Sheath 07/29/24 Right Femoral (Active) LDA Cath/EP Sheath 07/29/24 Proximal;Right Femoral (Active) Labs: Recent Labs 07/29/24 1403 WBC 19.50* HGB 13.1* HCT 40.1* PLATELET 236 MCV 83.4 Recent Labs 07/29/24 1403 NA 138 CL 104 CO2 19* K 3.6 MAGNESIUM 0.70 PHOS 2.5 CALCIUM 8.0* BUN 13 CREATININE 0.88 LFTs Recent Labs 07/29/24 1403 PROT 6.0* ALBUMIN 3.6 ALT 56* ALKPHOS 58 BILITOT 0.5 Coags Recent Labs 07/29/24 1403 INR 1.3 PT 14.2* PTT >160* Cardiac Enzymes No results for input(s): CK, TROPONINT, PROBNP in the last 168 hours. Endocrine Recent Labs 07/29/24 1403 TSH 0.70 No results for input(s): POCGLU in the last 168 hours. Heme No results for input(s): LDH, HAPTOGLOBIN, URICACID in the last 168 hours. ABG (Arterial Blood Gas) No results for input(s): PHART, XVE7VAV, PO2ART, KWT9DZV, LACTATEVEN, OKR4DWF, PFRATIOART2 in the last 168 hours. VBG (Venous Blood Gas) Recent Labs 07/29/24 1401 PHVEN 7.30* PO2VEN 39 TEV3KJO 20.1* Mixed Venous Sat No results for input(s): I8XAHT7 in the last 168 hours. Microbiology: Microbiology Results (Last 30 days) No results found for the last 720 hours. Imaging: No results found for this visit on 07/29/24. Medications Scheduled Meds: atorvastatin 80 mg Oral QPM [START ON 07/30/2024] clopidogreL 75 mg Oral Daily insulin lispro 1-4 Units Subcutaneous TID AC pantoprazole 40 mg Intravenous Daily albumin, human 5% 12.5 g Intravenous Once AMIOdarone magnesium sulfate 2 g Intravenous Once magnesium Sulfate lidocaine (pf) Continuous Infusions: NORepinephrine 20 mcg/min (07/29/24 1315) EPINEPHrine in dextrose 5% Stopped (07/29/24 1446) AMIOdarone 1 mg/min (07/29/24 1239) vasopressin 0.04 Units/min (07/29/24 1240) dextrose 5% 1,000 mL with sodium bicarbonate 25 mEq infusion NORepinephrine Stopped (07/29/24 1500) vasopressin AMIOdarone heparin (porcine) infusion lidocaine PRN Meds:.verapamiL, nitroGLYcerin, fentaNYL (PF), midazolam (PF), heparin (porcine), NORepinephrine, EPINEPHrine in dextrose 5%, AMIOdarone, AMIOdarone, vasopressin, iohexoL, glucose 40% oral geL OR dextrose OR glucagon, AMIOdarone, heparin (porcine) infusion AND heparin (porcine), magnesium Sulfate, lidocaine (pf) Assessment & Plan: Korey Montoya is a 74 y.o. male w/ PMH of hypertension, HLD, and BPH who presents for chief concern of chest pain after being found to have ST elevations on EKG. Patient [place] [facility] [place]. Found to have 100% occlusion of LAD for which he underwent LOW to LAD.Otherwise no other significant vessel disease. Fahad is currently hemodynamically tenuous but improving upon admission to [facility], requiring hemodynamic support with norepinephrine and vasopressin at time of admission along with mechanical support with Impella device. Reassuringly, he demonstrates decreasing pressor requirements since admission to [facility], with epinephrine completely weaned. He does demonstrate significant ectopy with scattered PVCs up to 10 beat run of VT, prompting initiation of lidocaine gtt at 2mg/min. Approximately 2 hours after initial presentation, chest discomfort and nausea returned, much less severe than at time of presentation, prompting repeat EKG and trending of troponins. Noted to have leukocytosis on initial laboratory evaluation with otherwise absent signs or symptomsof infection, nonetheless will obtain cultures to further investigate. Neuro #[place]ISON - Awake, alert, interactive at time of presentation Cardiovascular #STEMI LAD, 100% occlusion s/p LOW 07/29 #Cardiogenic shock (EF ~20% during procedural TTE) #Impella Pump in place - RECEIVED 600mg plavix load - START plavix 75mg daily - CONTIUE amiodarone gtt - STOP home simvastatin 20mg - START atorvastatin 80mg nightly - OBTAIN basic labs, a1c, TSH, lipids - daily BMP, mag, phos, CBC - START lidocaine gtt for FREQUENT PVCs - giving 2mg mag, LOW THRESHOLD to give additional mag - CONTINUE vasoactive medication support to maintain MAP >65mmHg - Norepinephrine and Vasopressin active - CONTINUE heparin gtt for Impella - GIVING albumin 5% 250cc bottles PRN - PLACED Arterial line, PRN ABGs #Hypertension - HOLD home losartan 25mg daily in setting of cardiogenic shock Pulmonary #EDISON - continue to monitor Renal/Fluid/Electrolytes #BPH - HOLDING home tamsulosin 0.04mg in setting of shock Gastrointestinal/Metabolic/Nutrition #GI prophylaxis - START protonix 40mg daily Hematology - EDISON Infection #Leukocytosis - OBTAINING cultures and CRP in setting of left shift and WBC 19.5 #Routine Diet: NPO diet (Give Meds) DVT Prophylaxis: therapeutic Heparin GI Prophylaxis: protonix 40mg IV daily Code Status: Attempt Cardiopulmonary Resuscitation - Inpatient Dispo: Pending clinical course Bernardo Amos MD Internal Medicine, PGY-3 Cardiology, [facility] 07/29/24 3:14 PM Cardiology Attending Note I interviewed and examined the patient during comprehensive bedside rounds. I concur with the summary of interval events, active hospital-focused problem list and plan of care as described in the note below. I personally reviewed the medications, laboratory results, treatment decisions and updated the patient. # Anterior STEMI, s/p prox LAD PCI # Cardiogenic shock, s/p Impella CP # ICM, LVEF: 20% - hs Trop > 10,000 - LA was 3.1 --> 1.5 - briefly on Levophed + Vasopressin, now only on Vaso @ 0.08 - wean vaso as tolerated - Impella currently at P6 w/ CI of 2.6; would leave at this level of support overnight - continue ASA, plavix, statin - formal TTE in AM # NSVT - continue amiodarone infusion for now Jay Silverio MD, FACP, FACC Section of Cardiovascular Medicine [facility] Care Appraiser Real Estateclaims support specialist [facility] This patient meets or has met medical criteria to require an inpatient level of care, i.e. a minimum of two midnights in the hospital with multiple complex problems. documented in this encounter Procedure Notes * Ivan Hernandez MD - 07/29/2024 4:54 PM EST Arterial Line Placement Procedure Note Indication for Procedure: Arterial line was placed for invasive blood pressure monitoring. Procedure Diagnosis: STEMI Location of Procedure: Critical Care. Risks and Benefits: The risks and benefits of this procedure were reviewed. Time Out: Prior to the start of the procedure, the patient's identity, intended procedure, site/side, correct patient positioning and presence of the site ellie was confirmed as applicable. The medical history and chart were reviewed to rule out potential contraindications to the planned procedure. Hand Hygiene: The band master did perform hand hygiene prior to arterial line insertion. Procedure Prep: Sterile draping was applied. Skin was prepped with chlorhexidine. 3 ml of 1% Lidocaine was used for local anesthesia. Procedure Details: A 20 gauge, 2 inch catheter was placed in the left radial artery and secured with tape. Tegaderm was applied. Ultrasound was used for guidance.. There was 1 attempt. Findings: There were no procedure complications. Blood was drawn with ease. Good wave form. Ivan Hernandez MD Major Sales Associate Associated attestation - Rolando Yeh MD - 07/31/2024 7:05 AM EST I was the attending physician supervising the fellow in this care and I was present with the resident for the monreal component(s) of the procedure and remained immediately available throughout the remainder. documented in this encounter Miscellaneous Notes * Plan of Care - Tonya Watson RN - 08/04/2024 3:59 PM EST Printed discharge instructions and medication records provided * Plan of Care - France Guerrero RN - 08/04/2024 7:21 AM EST Patient stable overnight, denies, pain, and is afebrile. Plan for D/C today. Problem: Adult Inpatient Plan of Care Goal: Plan of Care Review Outcome: Ongoing (Interventions Implemented as Appropriate) Goal: Patient-Specific Goal (Individualized) Outcome: Ongoing (Interventions Implemented as Appropriate) Goal: Absence of Hospital-Acquired Illness or Injury Outcome: Ongoing (Interventions Implemented as Appropriate) Goal: Optimal Comfort and Wellbeing Outcome: Ongoing (Interventions Implemented as Appropriate) Goal: Readiness for Transition of Care Outcome: Ongoing (Interventions Implemented as Appropriate) Problem: Dysrhythmia Goal: Normalized Cardiac Rhythm Outcome: Ongoing (Interventions Implemented as Appropriate) Problem: Arrhythmia/Dysrhythmia (Cardiac Catheterization) Goal: Stable Heart Rate and Rhythm Outcome: Ongoing (Interventions Implemented as Appropriate) Problem: Bleeding (Cardiac Catheterization) Goal: Absence of Bleeding Outcome: Ongoing (Interventions Implemented as Appropriate) Problem: Contrast-Induced Injury Risk (Cardiac Catheterization) Goal: Absence of Contrast-Induced Injury Outcome: Ongoing (Interventions Implemented as Appropriate) Problem: Embolism (Cardiac Catheterization) Goal: Absence of Embolism Signs and Symptoms Outcome: Ongoing (Interventions Implemented as Appropriate) Problem: Ongoing Anesthesia/Sedation Effects (Cardiac Catheterization) Goal: Anesthesia/Sedation Recovery Outcome: Ongoing (Interventions Implemented as Appropriate) Problem: Pain (Cardiac Catheterization) Goal: Acceptable Pain Control Outcome: Ongoing (Interventions Implemented as Appropriate) Problem: Vascular Access Protection (Cardiac Catheterization) Goal: Absence of Vascular Access Complication Outcome: Ongoing (Interventions Implemented as Appropriate) * Consult Note - Tamiko Andino RN - 08/03/2024 11:59 AM EST Korey Montoya was seen today by Cardiac Rehabilitation for: STEMI, PCI, HFrEF Activity evaluation - Worked w/PT. Salvador well. Patient fully ambulatory. Educational packet regarding CAD, cardiac risk factors, and managing angina given to the patient. Heart diagram reviewed. Fahad was quite active prior to his NM. 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 Given parameters for home exercise. He follows a heart healthy diet and is not overweight. His lipids are wnl. Participation in an outpatient cardiac rehabilitation program at [facility] was discussed. Patient agrees to a referral to this program. The referral will be sent at discharge and the patient should be contacted by the program within 1-2 weeks from discharge. * Care Management - Gaby Wong RN - 08/03/2024 11:26 AM EST OFFICE OF CARE MANAGEMENT PROGRESS NOTE LOS: Hospital Day 5 days Chart reviewed, care reviewed with primary team and at interdisciplinary rounds. Medical Decision Maker: Self Financial Decision Maker: Self Functional status prior to admission: Independent Home Environment: Others in the home: spouse. Current Living Arrangements: home/apartment/condo. Accessibility Concerns: 2 floor house, lives on main level, 2STE. Current Functional Ability: Completely Dependent, Assistive Person and Equipment DME used at home: cane - straight, walker - rolling (does not presently use any equipment but has it) DME Needed at Discharge: No Patient is insured through: Primary Insurance: [employer] MANAGED MEDICARE Payor: AAR MANAGED MEDICARE / [facility] / Product Type: *No Product type* / Secondary Insurance: N/A Last Physical Therapy Recommendation: home with supervision with to be determined (08/02/24 1032) Last Occupational Therapy Recommendation: with Plan for discharge is: Pending Hospital Course and PT/OT Recommendations Outpatient Agency/Support Group Needs: None Agency Referrals: Not Applicable Transportation: family or friend will provide Barriers to discharge: Global: Denies needs/concerns at this time ICU Needs: ICU specific devices / therapies, none / ready for downgrade Plan: Patient is not medically ready related to: STEMI (ST elevation myocardial infarction) [I21.3] . Plan going forward is: Per sign out- plan is to monitor symptoms today and medication adjustments today. Plan for patient to d/c home with family when Medically ready. Spouse plans to transport patient at discharge. Anticipated Date of Discharge: 08/04/2024 Gaby Wong RN, CM Pager-[phone] * Initial Assessments - Char Meza OT - 08/03/2024 10:00 AM EST Occupational Therapy Evaluation Patient profile: Korey Montoya is a 74 y.o. male admitted on 07/29/2024 w/ PMH of hypertension, HLD, and BPH who presents for chief concern of chest pain after being found to have ST elevations onEKG. Patient transferred via air ambulance [place] [facility] [place] LHC and LOW to LAD for 100% occlusion. Past Medical History: Diagnosis Date ADHD HLD (hyperlipidemia) HTN (hypertension) Tremor Past Surgical History: Procedure Laterality Date HAND SURGERY PRO COLONOSCOPY, REMV LESN, SNARE N/A 08/30/2023 COLONOSCOPY, POLYPECTOMY, REMOVAL LESION BY SNARE (WRVU 4.57) performed by Brandan Mcgovern MD [facility] ENDOSCOPY Social History: Patient lives with his . Home Setup: 2 NAOMI to a 1 level home. DME: none Baseline ADL/Mobility: Independent with ADLs and IADLs. Enjoys walking. able assist as needed. Precautions/Special Considerations: Full code. Risk for falls. Subjective: I have access to an Olympic weight gym. (Educated to wait for MD to start) Objective: Seen today for OT evaluation. Cognitive Status/Behavior: Behavior / Mood: alert and cooperative Alert and oriented to: person, place, time, and situation Follows commands: multi step Attention: WFL Safety awareness: Fair Ple[place] and willing Vision & Perception: WNL / WFL Communication: WFL Range of motion, strength, coordination: Hand dominance: right Bilateral UEs are functional LE limitations: functional Sensation: no impairments noted Activities of Daily Living: Self-feeding: set-up Grooming: set-up Dressing: set-up to don pants, educated to sit down to put over feet prior to pulling over hips. Bathing: demonstrates ability to complete independently Toileting: Transfer: independent Hygiene: demonstrates ability to complete independently Functional Mobility: Supine to sit: received in the recliner Sit to stand: independent Ambulation: independent, seen with PT in the hallway and safe without a device in front of the chair Stand to sit: independent Sit to supine: left sitting in the recliner Balance: Sitting balance: independent Standing balance: independent Vitals: HR 77 RR 22 SpO2 99% on RA BP 109/68 Pain: no complaints Skin: PIV Education: patient have been educated on Role of occupational therapy/rehabilitation, Transfers, ADL, Exercise, Breathing exercises, Positioning, Safety, Precautions/Protocol, Functional Mobility, Activity pacing/Energy conservation, and Recommendations and verbalizes understanding. Patient status, treatment, and mobility recommendations discussed with nursing. Assessment: Pt has been seen for occupational therapy evaluation. Korey Montoya presents with the following performance skill deficits and client factors: compromised mobility status and skin integrity. These performance deficits have led to activity limitations and participation restrictions inthe following areas of occupation: rest / sleep, driving, and community mobility. However, despite the deficits listed above pt demonstrates the ability to complete ADLs and functional mobility safely. Anticipate that pt will return home with assistance once medically ready. Do not anticipate further OT needs while hospitalized. Equipment needs at discharge: None Anticipated Discharge Dispostion: home with daily check in (with cardiac rehab) Other Recommendations: Open shades and turn on lights during the day/lights off at night, Set-up patient with ADL tasks, allow patient to complete ADL tasks as independently as possible Assist patient to the toilet (no bed tejada) Provide choices as able, encourage safe coping skills (such as music, reading, coloring, word search, journaling) Have patient sit up in recliner during the day as much as possible Sit upright for all meals Ambulate as tolerated Other Recommendations: No other consults recommended at this time. Goals: Korey Montoya does not demonstrate further skilled acute OT needs and is safe to discharge home with family as needed per OT perspective. Please re- consult if patient's status changes and needs for skilled OT arise. Plan: OT: Therapy Frequency (OT): evaluation only Total Minutes, Occupational Therapy: 14 ([id number] (evaluation)) 2017 OT Evaluation Code Rationale: Diagnosis & Pertinent Co-Morbidities affecting Plan of Care: see PMHx Occupational Profile & Client History: Brief Expanded Extensive X Assessment of Occupational Performance: 1-3 performance deficits X 3-5 performance deficits 5 + performance deficits Clinical Decision Making: Low Moderate High X Clinical decision making of low complexity using standardized patient assessment instrument and measurable assessment of functional outcome. Pager: [phone] Char Meza OT 08/03/2024 Occupational Therapy Rehabilitation Department * Plan of Care - Parvin Strauss RN - 08/02/2024 5:23 PM EST Ambulated X2. Up in chair for the day. Downgraded to L5. Losartan and metop added Problem: Adult Inpatient Plan of Care Goal: Plan of Care Review Outcome: Ongoing (Interventions Implemented as Appropriate) Goal: Patient-Specific Goal (Individualized) Outcome: Ongoing (Interventions Implemented as Appropriate) Goal: Absence of Hospital-Acquired Illness or Injury Outcome: Ongoing (Interventions Implemented as Appropriate) Goal: Optimal Comfort and Wellbeing Outcome: Ongoing (Interventions Implemented as Appropriate) Goal: Readiness for Transition of Care Outcome: Ongoing (Interventions Implemented as Appropriate) Problem: Dysrhythmia Goal: Normalized Cardiac Rhythm Outcome: Ongoing (Interventions Implemented as Appropriate) Problem: Arrhythmia/Dysrhythmia (Cardiac Catheterization) Goal: Stable Heart Rate and Rhythm Outcome: Ongoing (Interventions Implemented as Appropriate) Problem: Bleeding (Cardiac Catheterization) Goal: Absence of Bleeding Outcome: Ongoing (Interventions Implemented as Appropriate) Problem: Contrast-Induced Injury Risk (Cardiac Catheterization) Goal: Absence of Contrast-Induced Injury Outcome: Ongoing (Interventions Implemented as Appropriate) Problem: Embolism (Cardiac Catheterization) Goal: Absence of Embolism Signs and Symptoms Outcome: Ongoing (Interventions Implemented as Appropriate) Problem: Ongoing Anesthesia/Sedation Effects (Cardiac Catheterization) Goal: Anesthesia/Sedation Recovery Outcome: Ongoing (Interventions Implemented as Appropriate) Problem: Pain (Cardiac Catheterization) Goal: Acceptable Pain Control Outcome: Ongoing (Interventions Implemented as Appropriate) Problem: Vascular Access Protection (Cardiac Catheterization) Goal: Absence of Vascular Access Complication Outcome: Ongoing (Interventions Implemented as Appropriate) * Plan of Care - Edouard Wisdom RN - 08/02/2024 5:29 AM EST Problem: Adult Inpatient Plan of Care Goal: Plan of Care Review Outcome: Ongoing (Interventions Implemented as Appropriate) Goal: Patient-Specific Goal (Individualized) Outcome: Ongoing (Interventions Implemented as Appropriate) Goal: Absence of Hospital-Acquired Illness or Injury Outcome: Ongoing (Interventions Implemented as Appropriate) Goal: Optimal Comfort and Wellbeing Outcome: Ongoing (Interventions Implemented as Appropriate) Goal: Readiness for Transition of Care Outcome: Ongoing (Interventions Implemented as Appropriate) Problem: Dysrhythmia Goal: Normalized Cardiac Rhythm Outcome: Ongoing (Interventions Implemented as Appropriate) Problem: Arrhythmia/Dysrhythmia (Cardiac Catheterization) Goal: Stable Heart Rate and Rhythm Outcome: Ongoing (Interventions Implemented as Appropriate) Problem: Bleeding (Cardiac Catheterization) Goal: Absence of Bleeding Outcome: Ongoing (Interventions Implemented as Appropriate) Problem: Contrast-Induced Injury Risk (Cardiac Catheterization) Goal: Absence of Contrast-Induced Injury Outcome: Ongoing (Interventions Implemented as Appropriate) Problem: Embolism (Cardiac Catheterization) Goal: Absence of Embolism Signs and Symptoms Outcome: Ongoing (Interventions Implemented as Appropriate) Problem: Ongoing Anesthesia/Sedation Effects (Cardiac Catheterization) Goal: Anesthesia/Sedation Recovery Outcome: Ongoing (Interventions Implemented as Appropriate) Problem: Pain (Cardiac Catheterization) Goal: Acceptable Pain Control Outcome: Ongoing (Interventions Implemented as Appropriate) Problem: Vascular Access Protection (Cardiac Catheterization) Goal: Absence of Vascular Access Complication Outcome: Ongoing (Interventions Implemented as Appropriate) * Plan of Care - Marivel English RN - 08/01/2024 5:41 PM EST Problem: Adult Inpatient Plan of Care Goal: Plan of Care Review Outcome: Ongoing (Interventions Implemented as Appropriate) Flowsheets (Taken 08/01/2024 1739) Outcome Summary: A+O, no pain. NSR. MAP > 65, no intervention. Dobutamine and amiodarone gtts off, CI > 2 via TD and Thomas. PA cath, intro, arterial line removed. RA. Tolerating diet. Perez removed, voiding appropriately in urinal. 20mg Lasix given with good effect. Plan of Care Reviewed With: patient Progress: improving * Brief Op Note - Maldonado Luis MD - 07/31/2024 5:35 PM EST Preliminary Cardiac Catheterization Procedure Note: Patient Name: Korey Montoya : [id number] MR#: [id number] Case Date: 07/31/2024 Transformation Specialist: Surgeons and Role: * Maldonado Luis MD - Primary * Quinten Charles PA - Physician Freezer Person Preoperative diagnosis: shock, impella Postoperative diagnosis: * same * Procedure(s) performed: Impella removal form right RADIOLOGY THERAPIST Access: Right RADIOLOGY THERAPIST A time-out was conducted prior to the start of the procedure to verify the correct patient and procedure, procedure location, and all relevant critical information. Preliminary findings: Impella weaned and removed. Perclose followed by 8fr Angioseal with good hemostasis Intact distal pulses after removal Full report to follow. Maldonado Luis MD * Initial Assessments - Kelley Melgar RN - 07/30/2024 12:04 PM EST Office of Care Management Initial Assessment Kelley Melgar RN reviewed record and discussed patient with Care Team. Source of Information: Team, bedside nurse, medical record, and Patient Introduced self/reviewed role; services accepted. Admitted From: Transfer from another hospital Location: [facility] Reason for Hospitalization: chest pain Past medical History: Past Medical History: Diagnosis Date ADHD HLD (hyperlipidemia) HTN (hypertension) Tremor Hospitalizations Within the Past 30 Days: no previous admission in last 30 days Current Decision-Making Capacity: Self If AD's have not been completed the following surrogate would be surrogate decision maker per [place] decision making law. (Only good for 180 days) Any patient receiving care in [place] must abide by [place] law. The hierarchy for surrogate decision making is: (a) Patient???s spouse or civil union partner unless there is a divorce proceeding, separation agreement, or restraining order limiting that person???s relationship with the patient. (b) Any adult son or daughter of the patient. (c) Either parent of the patient. (d) Any adult brother or sister of the patient. (e) Any adult grandchild of the patient. (f) Any grandparent of the patient. (g) Any adult aunt, uncle, niece, or nephew of the patient. (h) A close friend of the patient. (i) The agent with financial power of employment law attorney or a conservator appointed in accordance with RSA 464-A. (j) The guardian of the patient???s estate. Advance Care Planning: Attempt Cardiopulmonary Resuscitation - Inpatient <no information> -Advanced Directive: Yes, not on file Who is your DPOA-HC?: Spouse Current Coping/Education/Information Needs: pt coping well Current Functional Ability: Completely Dependent Functional Status Prior to Admission: Independent Prior ADLs & IADLs: Independent with all ADLs & IADLs Home Environment: Others in the home: spouse. Current Living Arrangements: home/apartment/condo. Accessibility Concerns:2 floor house, lives on main level, 2STE. In the last 12 months, was there a time when you were not able to pay the mortgage or rent on time?: No In the past 12 months, how many times have you moved where you were living?: 0 At any time in the past 12 months, were you homeless or living in a senior living (including now)?: No In the past 12 months has the [employer], gas, oil, or water [employer] threatened to shut off services in your home?: No Within the past 12 months, you worried that your food would run out before you got the money to buymore.: Never true Within the past 12 months, the food you bought just didn't last and you didn't have money to get more.: Never true Resource / Environmental Concerns: Resource/Environmental Concerns: none In the past 12 months, has lack of transportation kept you from medical appointments or from getting medications?: No In the past 12 months, has lack of transportation kept you from meetings, work, or from getting things needed for daily living?: No Current DME: cane - straight, walker - rolling (does not presently use any equipment but has it) Home Address confirmed as: Mailing Address: [facility] [address] [place] [address] Physical Address: [address] [place], [place] Social & Family Supports: All names listed below confirmed with patient as current and correct Extended Emergency Contact Information Primary Emergency Contact: Litzy Sanches Mobile Relation: Spouse Secondary Emergency Contact: Parvin Montoya Mobile Relation: Child Current Care Provided by: self Provides Primary Care For: no one Caregiver if needed: spouse Quality of Family relationships: helpful, involved, supportive Community Resources being provided currently: none Behavioral Health History: none Substance Use/Abuse confirmed: Social History Tobacco Use Smoking Status Former Types: Cigarettes Smokeless Tobacco Never In the past year have you used an illegal drug or used a prescription medication for non-medical reasons?: No 0 No problems reported 1-2 Low level 3-5 Moderate level 6-8 Substantial level 9- 10 Severe level In the past year have you had 5 or more drinks a day containing alcohol?: No 0 to 7 points: Low risk 8 to 15 points: Medium risk 16 to 19 points: High risk 20 to 40 points: Addiction likely Health/Prescription Coverage: Primary Insurance: [facility] [employer] MED[employer] Payor: [facility] [employer] MED[employer]ARE / Plan: [facility] [employer] MED[employer]ARE COMPLETE / Product Type: *No Product type* / Secondary Insurance: N/A ; Prescription Coverage: Yes Preferred Pharmacy: [address] [address] [place] Status: Patient is a : No Primary Care Provider confirmed: Alexia Mtz, FREDRICK [phone] Patient/Caregiver Goals of Treatment: return home Potential Needs for Transition of Care: none Transportation: no concerns Transportation Anticipated: family or friend will provide Concerns to be Addressed: no discharge needs identified Assessment: Patient is admitted to cardiology service for: #STEMI LAD, 100% occlusion s/p LOW 07/29 #Cardiogenic shock (EF ~20% during procedural TTE) #Impella Pump in place Plan going forward: Continue to monitor for discharge needs once patient has stabilized and is nearing discharge. Care Management team will continue to follow and assist with discharge planing and coordination of care as indicated. Kelley A Melgar, RN * Plan of Care - Chase Castro RN - 07/30/2024 5:30 AM EST Pt A&Ox4. SB/SR on tele. Still reports intermittent chest pain/pressure, team aware. Int nausea, prn zofran + one time dose IV benadryl given w/ good effect. CI dropped to 1.8, 1.5 by THOMAS. Dobutamine initiated, CI now 2.3. Impella maintained on P6. Problem: Adult Inpatient Plan of Care Goal: Plan of Care Review 07/30/2024529 by Chase Castro RN Outcome: Ongoing (Interventions Implemented as Appropriate) 07/30/2024528 by Chase Castro RN Outcome: Ongoing (Interventions Implemented as Appropriate) Goal: Patient-Specific Goal (Individualized) 07/30/2024529 by Chase Castro RN Outcome: Ongoing (Interventions Implemented as Appropriate) 07/30/2024528 by Chase Castro RN Outcome: Ongoing (Interventions Implemented as Appropriate) Goal: Absence of Hospital-Acquired Illness or Injury 07/30/2024529 by Chase Castro RN Outcome: Ongoing (Interventions Implemented as Appropriate) 07/30/2024528 by Chase Castro RN Outcome: Ongoing (Interventions Implemented as Appropriate) Goal: Optimal Comfort and Wellbeing 07/30/2024529 by Chase Castro RN Outcome: Ongoing (Interventions Implemented as Appropriate) 07/30/2024528 by Chase Castro RN Outcome: Ongoing (Interventions Implemented as Appropriate) Goal: Readiness for Transition of Care 07/30/2024529 by Chase Castro RN Outcome: Ongoing (Interventions Implemented as Appropriate) 07/30/2024528 by Chase Castro RN Outcome: Ongoing (Interventions Implemented as Appropriate) Problem: Arrhythmia/Dysrhythmia (Cardiac Catheterization) Goal: Stable Heart Rate and Rhythm 07/30/2024529 by Chase Castro RN Outcome: Ongoing (Interventions Implemented as Appropriate) 07/30/2024 0529 by Chase Castro RN Outcome: Ongoing (Interventions Implemented as Appropriate) Problem: Vascular Access Protection (Cardiac Catheterization) Goal: Absence of Vascular Access Complication 07/30/2024 05 by Chase Castro RN Outcome: Ongoing (Interventions Implemented as Appropriate) 07/30/2024 05 by Chase Castro RN Outcome: Ongoing (Interventions Implemented as Appropriate) Problem: Pain (Cardiac Catheterization) Goal: Acceptable Pain Control 07/30/2024 05 by Chase Castro RN Outcome: Ongoing (Interventions Implemented as Appropriate) 07/30/2024 05 by Chase Castro RN Outcome: Ongoing (Interventions Implemented as Appropriate) * Plan of Care - Ary Malone RN - 07/29/2024 6:25 PM EST Pt arrived from [facility] @ 1400. CXR and EKG completed. Impella @ P6. levo/vaso titrated off. Heparin started. Mag, K and Calcium replaced. L radial a line placed. 1 episode of nausea resulting in emesis, ativan given, symptoms improved. Amio and lido started. Family visited an updated. Dopplerablepulses in R foot below impella. Indicies greater than 2. EKG redone. * Brief Op Note - Susannah Watts PA - 07/29/2024 1:33 PM EST Preliminary Cardiac Catheterization Procedure Note: Patient Name: Korey Montoya : [id number] MR#: [id number] Case Date: 07/29/2024 Transformation Specialist: Surgeons and Role: * Vahe Marvin MD - Primary * Susannah Watts PA - Physician Freezer Person Preoperative diagnosis: STEMI Postoperative diagnosis: * STEMI, LAD Artery * * Cardiogenic Shock * Procedure(s) performed: [facility] Coronary angiogram Stent insertion coronary IVUS coronary Venous line insert RH Thornton Colette Catheter Vascular closure device Ventricular assist device insertion (Imeplla) Access site angiography Vascular ultrasound ABG TTE Access: 6 Fr RRA 6 Fr RFA > 14 Fr RFA > 8 Fr RFA with perclose 7 Fr RFV > 9 Fr RFV A time-out was conducted prior to the start of the procedure to verify the correct patient and procedure, procedure location, and all relevant critical information. Preliminary findings: Right dominant LA mean 17 Unable to capture LVEDP on pullback, received 2+ L IV NS RCA: no significant disease LMCA: no significant disease LCX: no significant disease LAD: proximal 100% LIZ 0 distal flow Ongoing chest pain during procedure, specifically during coronary stent insertion. Inflated 3.0 x 22 mm to 14 deonna JEISON [place] with LIZ 3 flow. Residual distal disease at distal stent, overlapping distal stent was inserted with 3.0 x 8 mm JEISON [place]. Systolic's in the 80's sustained. Patient re quired 3 pressors, levo, epi, and vaso and high dosages due to cardiogenic shock. Impella placed due to ongoing hypotension and chest pain. TTE showed apical akinesis and inferior hypokinesis with EF20%. No visual thrombus on beside POCUS. RHC showed elevated filling pressures, initial PA sat 65%.CI 1.97. repeat RHC showed PA sat improving to 72% with CI > 2.2 after Impella and pressor support. Impella support provided > 3.5 L/min output. Inserting impella further into LV would cause sustained VT. Impella currently sitting at optimal spot with minimal ectopy. RFA and RFV sutured into place. The patient tolerated the procedures smoothly and was transferred from the cardiac catheterization lab to the next level of care in guarded condition. Full report to follow. MAGGIE Dorantes documented in this encounter Plan of Treatment Upcoming Encounters Date Type Department Care Team (Late st Contact Info) Description 10/01/2024 10:00 AM EST Office Visit Cardiology at [address] [phone] Mushtaq Murphy, PROGRAM/MUSIC DIRECTOR Scheduled Orders Name Type Priority Associated Diagnoses Orde r Schedule EKG [address] elevation myocardial infarction involving left anterior descending (LAD) coronary artery One Time for 1 Occurrences starting 07/29/2024 until 07/29/2024 Scheduled Referrals Name Type Priority Associated Diagnoses Order Schedule Referral to Cardiac Rehab Outpatient Referral Routine ST elevation myocardial infarction involving left anterior descending (LAD) coronary artery Ordered: 08/04/2024 Referral to Cardiology Outpatient Referral Routine HFrEF (heart failure with reduced ejection fraction) Ordered: 08/04/2024 documented as of this encounter Procedures Procedure Name Priority Date/Time Associated Diagnosis Comments CBC (WITH DIFF) Routine 08/04/2024 6:08 AM EST MAGNESIUM Routine 08/04/2024 6:08 AM EST BASIC METABOLIC PANEL Routine 08/04/2024 6:08 AM EST CBC (WITH DIFF) Routine 08/03/2024 5:16 AM EST MAGNESIUM Routine 08/03/2024 5:16 AM EST BASIC METABOLIC PANEL Routine 08/03/2024 5:16 AM EST POC, GLUCOSE Routine 08/02/2024 7:47 AM EST CBC (WITH DIFF) Routine 08/02/2024 4:20 AM EST MAGNESIUM Routine 08/02/2024 4:20 AM EST BASIC METABOLIC PANEL Routine 08/02/2024 4:20 AM EST POTASSIUM Routine 08/01/2024 8:39 PM EST POC, GLUCOSE Routine 08/01/2024 8:35 PM EST POC, GLUCOSE Routine 08/01/2024 4:55 [...] 8:41 PM EST CARDIAC CATHETERIZATION Routine 07/31/20 5:53 PM EST POC, GLUCOSE Routine 07/31/2024 11:04 AM EST BLOOD GAS ARTERIAL POC Routine 8:29 AM EST POC, GLUCOSE Routine 07/31/2024 7:47 AM EST CBC (WITH DIFF) Routine 07/31/2024 1:08 AM EST MAGNESIUM Routine 07/31/2024 1:08 AM EST HEPATIC FUNCTION PANEL Routine 1:08 AM EST BASIC METABOLIC PANEL Routine 07/31/2024 1:08 AM EST POC, GLUCOSE Routine 07/30/2024 [...] METABOLIC PANEL Routine 07/30/2024 2:11 AM EST COOX, POC Routine 07/30/2024 1:00 AM EST BLOOD GAS ARTERIAL POC Routine 12:57 AM EST TROPONIN - SINGLE STAT 07/29/2024 10: 31 PM EST TROPONIN - SINGLE Timed 07/29/2024 8:1 1 PM EST POTASSIUM Routine 07/29/2024 8:11 PM EST PHOSPHORUS Routine 07/29/2024 8:11 PM [...] VIEW STAT 07/29/2024 2:3 0 PM EST TROPONIN - SINGLE STAT 07/29/2024 2:0 3 PM EST TSH CASCADE Routine 07/29/2024 2:03 PM EST CRP, ACUTE INFLAMMATION Routine 07/29/20 24 2:03 PM EST HC PARTIAL THROMBOPLASTIN TIME Routine 07/29/2024 2:03 PM EST PROTHROMBIN TIME Routine 07/29/2024 2:03 PM EST CBC (WITH DIFF) STAT 07/29/2024 2:03 PM EST PHOSPHORUS STAT 07/29/2024 2:03 PM EST MAGNESIUM STAT 07/29/2024 2:03 PM EST HEMOGLOBIN A1C Routine 07/29/2024 2:03 PM EST LIPID PANEL (REFLEX DIRECT LDL) Routine 07/29/2024 2:03 PM EST COMPREHENSIVE METABOLIC PANEL Routine 07/29/2024 2:03 PM EST BLOOD GAS VENOUS POC Routine 07/29/2024 2:01 PM EST CARDIAC CATHETERIZATION Routine 07/29/20 1:20 PM EST BLOOD GAS, POC Routine 07/29/2024 12:46 PM EST BLOOD GAS, POC Routine 07/29/2024 12:12 PM EST documented in this encounter Results * (ABNORMAL) CBC (with Diff) (08/04/2024 6:08 AM EST) [facility] White Blood Cell 7.27 4.00 - 9.50 x10(3)/mc L 08/04/2024 6:39 AM [facility] Red Blood Cell 4.28(L) 4.58 - 5.54 x10(6)/mc L 08/04/2024 6:39 AM [facility] Hemoglobin 11.6(L) 13.7 - 16.5 g/dL 08/04/2024 6:39 AM [facility] Hematocrit 34.8(L) 40.5 - 48.5 % 08/04/2024 6:39 AM [facility] Mean Cell Volume 81.3(L) 82.9 - 93.1 fL 08/04/2024 6:39 AM [facility] Mean Cell Hemoglobin 27.1(L) 27.5 - 32.1 pg 08/04/2024 6:39 AM [facility] Mean Cell Hemoglobin Concentration 33.3 32.0 - 35.7 g/dL 08/04/2024 6:39 AM [facility] Platelet 178 145 - 357 x10(3)/mc L 08/04/2024 6:39 AM [facility] Mean Platelet Volume 10.6 7.6 - 12.9 fL 08/04/2024 6:39 AM [facility] RDW Standard Deviation 42.0 36.0 - 45.0 fL 08/04/2024 6:39 AM [facility] RDW coefficient of variation 14.3(H) 11.4 - 13.8 % 08/04/2024 6:39 AM [facility] NRBC% auto 0.0 % 08/04/2024 6:39 AM [facility] NRBC Absolute <0.01 <0.01 x10(3)/mc L 08/04/2024 6:39 AM [facility] Neutrophil % 72.1 % 08/04/2024 6:39 AM [facility] Neutrophil Absolute (ANC) - Automated 5.24 1.70 - 6.10 x10(3)/mc L 08/04/2024 6:39 AM [facility] Lymph % 16.8 % 08/04/2024 6:39 AM [facility] Lymph Absolute 1.22 0.90 - 3.20 x10(3)/mc L 08/04/2024 6:39 AM [facility] Monocyte % 8.5 % 08/04/2024 6:39 AM [facility] Monocyte Absolute 0.62 0.30 - 0.90 x10(3)/mc L 08/04/2024 6:39 AM [facility] Eos % 1.9 % 08/04/2024 6:39 AM [facility] Eos Absolute 0.14 0.00 - 0.40 x10(3)/mc L 08/04/2024 6:39 AM [facility] Basophil % 0.4 % 08/04/2024 6:39 AM [facility] Baso Absolute <0.04 0.00 - 0.10 x10(3)/mc L 08/04/2024 6:39 AM [facility] Immature Gran % 0.3 % 6:39 AM [facility] Immature Gran Absolute <0.04 0.00 - 0.04 x10(3)/mc L 08/04/2024 6:39 AM [facility] Blood VENOUS BLOOD SPECIMEN / Unknown Venipuncture / Unknown 08/04/2024 6:08 AM EST 08/04/2024 6:19 AM EST Bridgette Stauffer MD HEMATOLOGY ORDERABLE S [facility] [place] [address] * Magnesium (08/04/2024 6:08 AM EST) Magnesium 0.85 0.69 - 1.07 mMol/L 08/04/2024 7:07 AM [facility] Blood VENOUS BLOOD SPECIMEN / Unknown Venipuncture / Unknown 08/04/2024 6:08 AM EST 08/04/2024 6:19 AM EST Bridgette Stauffer MD CHEMISTRY ORDERABLES [facility] [place] [address] * Basic Metabolic Panel (08/04/2024 6:08 AM EST) Glucose 93 65 - 199 mg/dL 08/04/2024 7:07 AM [facility] Comment:Glucose Concentratio n >=200 mg/dL plus symptoms is consistent with Diabetes Mellitus. Blood Urea Nitrogen 14 10 - 20 mg/dL 08/04/2024 7:07 AM [facility] Creatinine 1.07 0.80 - 1.50 mg/dL 08/04/2024 7:07 AM [facility] Sodium 138 135 - 145 mMol/L 08/04/2024 7:07 AM [facility] Potassium 4.3 3.5 - 5.0 mMol/L 08/04/2024 7:07 AM [facility] Chloride 107 98 - 107 mMol/L 08/04/2024 7:07 AM [facility] Carbon Dioxide 23 22 - 31 mMol/L 08/04/2024 7:07 AM [facility] Anion Gap 8 5 - 15 mMol/L 08/04/2024 7:07 AM [facility] Calcium 8.5 8.5 - 10.5 mg/dL 08/04/2024 7:07 AM [facility] Est Glomerular Filtration Rate - Male 74 mL/min/1. 73 m?? 08/04/2024 7:07 AM [facility] Comment: This patient's estimated GFR was [...] AM EST Bridgette Stauffer MD CHEMISTRY ORDERABLES [facility] [place] [address] * (ABNORMAL) CBC (with Diff) (08/03/2024 5:16 AM EST) White Blood Cell 7.85 4.00 - 9.50 x10(3)/mc L 08/03/2024 5:29 AM [facility] Red Blood Cell 4.43(L) 4.58 - 5.54 x10(6)/mc L 08/03/2024 5:29 AM [facility] Hemoglobin 11.8(L) 13.7 - 16.5 g/dL 08/03/2024 5:29 AM [facility] Hematocrit 35.9(L) 40.5 - 48.5 % 08/03/2024 5:29 AM [facility] Mean Cell Volume 81.0(L) 82.9 - 93.1 fL 08/03/2024 5:29 AM [facility] Mean Cell Hemoglobin 26.6(L) 27.5 - 32.1 pg 08/03/2024 5:29 AM [facility] Mean Cell Hemoglobin Concentration 32.9 32.0 - 35.7 g/dL 08/03/2024 5:29 AM [facility] Platelet 142(L) 145 - 357 x10(3)/mc L 08/03/2024 5:29 AM [facility] Mean Platelet Volume 10.5 7.6 - 12.9 fL 08/03/2024 5:29 AM [facility] RDW Standard Deviation 42.5 36.0 - 45.0 fL 08/03/2024 5:29 AM [facility] RDW coefficient of variation 14.2(H) 11.4 - 13.8 % 08/03/2024 5:29 AM [facility] NRBC% auto 0.0 % 08/03/2024 5:29 AM [facility] NRBC Absolute <0.01 <0.01 x10(3)/mc L 08/03/2024 5:29 AM [facility] Neutrophil % 75.2 % 08/03/2024 5:29 AM [facility] Neutrophil Absolute (ANC) - Automated 5.91 1.70 - 6.10 x10(3)/mc L 08/03/2024 5:29 AM [facility] Lymph % 13.4 % 08/03/2024 5:29 AM [facility] Lymph Absolute 1.05 0.90 - 3.20 x10(3)/mc L 08/03/2024 5:29 AM [facility] Monocyte % 9.0 % 08/03/2024 5:29 AM [facility] Monocyte Absolute 0.71 0.30 - 0.90 x10(3)/mc L 08/03/2024 5:29 AM [facility] Eos % 1.7 % 08/03/2024 5:29 AM [facility] Eos Absolute 0.13 0.00 - 0.40 x10(3)/mc L 08/03/2024 5:29 AM [facility] Basophil % 0.4 % 08/03/2024 5:29 AM [facility] Baso Absolute <0.04 0.00 - 0.10 x10(3)/mc L 08/03/2024 5:29 AM [facility] Immature Gran % 0.3 % 5:29 AM [facility] Immature Gran Absolute <0.04 0.00 - 0.04 x10(3)/mc L 08/03/2024 5:29 AM [facility] Blood VENOUS BLOOD SPECIMEN / Unknown Venipuncture / Unknown 08/03/2024 5:16 AM EST 08/03/2024 5:23 AM EST Bridgette Stauffer MD HEMATOLOGY ORDERABLE S [facility] [place] [address] * Magnesium (08/03/2024 5:16 AM EST) Magnesium 0.89 0.69 - 1.07 mMol/L 08/03/2024 5:56 AM [facility] Blood VENOUS BLOOD SPECIMEN / Unknown Venipuncture / Unknown 08/03/2024 5:16 AM EST 08/03/2024 5:23 AM EST Bridgette Stauffer MD CHEMISTRY ORDERABLES [facility] [place] [address] * (ABNORMAL) Basic Metabolic Panel (08/03/2024 5:16 AM EST) Glucose 98 65 - 199 mg/dL 08/03/2024 5:56 AM [facility] Comment:Glucose Concentratio n >=200 mg/dL plus symptoms is consistent with Diabetes Mellitus. Blood Urea Nitrogen 16 10 - 20 mg/dL 08/03/2024 5:56 AM [facility] Creatinine 0.85 0.80 - 1.50 mg/dL 08/03/2024 5:56 AM [facility] Sodium 137 135 - 145 mMol/L 08/03/2024 5:56 AM EST [facility] Potassium 4.5 3.5 - 5.0 mMol/L 08/03/2024 5:56 [facility] Chloride 106 98 - 107 mMol/L 08/03/2024 5:56 [facility] Carbon Dioxide 21(L) 22 - 31 mMol/L 08/03/2024 5:56 [facility] Anion Gap 10 5 - 15 mMol/L 08/03/2024 5:56 AM EST [facility] Calcium 8.3(L) 8.5 - 10.5 mg/dL 08/03/2024 5:56 [facility] Est Glomerular Filtration Rate - Male 92 mL/min/1. 73 m?? 08/03/2024 5:56 [facility] Comment: This patient's estimated GFR was [...] BLOOD SPECIMEN / Unknown Venipuncture / Unknown 08/03/2024 5:16 AM EST 08/03/2024 5:23 AM EST Bridgette Stauffer MD CHEMISTRY ORDERABLES Performing Organization Address [facility]/ZIP Co de Phone Number [facility] [place] [address] * POC, GLUCOSE (08/02/2024 7:47 AM EST) Glucometer, POC 89 65 - 199 mg/dL 08/02/2024 7:47 AM EST [facility] Comment:Supplemental ranges: <140 mg/dL before meals <180 mg/dL all other times of the day. Blood CAPILLARY BLOOD / Unknown 08/02/2024 7:47 AM EST 08/02/2024 7:47 AM EST Krystal Parker MD POINT OF CARE TEST O RDERABLES Performing Organization Address [facility] Co de Phone Number [facility] [place] [address] * (ABNORMAL) CBC (with Diff) (08/02/2024 4:20 AM EST) White Blood Cell 8.51 4.00 - 9.50 x10(3)/mc L 08/02/2024 4:50 AM EST [facility] Red Blood Cell 4.41(L) 4.58 - 5.54 x10(6)/mc L 08/02/2024 4:50 AM EST [facility] Hemoglobin 12.2(L) 13.7 - 16.5 g/dL 08/02/2024 4:50 AM EST [facility] Hematocrit 35.8(L) 40.5 - 48.5 % 08/02/2024 4:50 [facility] Mean Cell Volume 81.2(L) 82.9 - 93.1 fL 08/02/2024 4:50 [facility] Mean Cell Hemoglobin 27.7 27.5 - 32.1 pg 08/02/2024 4:50 [facility] Mean Cell Hemoglobin Concentration 34.1 32.0 - 35.7 g/dL 08/02/2024 4:50 [facility] Platelet 111(L) 145 - 357 x10(3)/mc L 08/02/2024 4:50 [facility] Mean Platelet Volume 11.1 7.6 - 12.9 fL 08/02/2024 4:50 [facility] RDW Standard Deviation 41.9 36.0 - 45.0 fL 08/02/2024 4:50 [facility] RDW coefficient of variation 14.1(H) 11.4 - 13.8 % 08/02/2024 4:50 [facility] NRBC% auto 0.0 % 08/02/2024 4:50 [facility] NRBC Absolute <0.01 <0.01 x10(3)/mc L 08/02/2024 4:50 [facility] Neutrophil % 77.7 % 08/02/2024 4:50 [facility] Neutrophil Absolute (ANC) - Automated 6.62(H) 1.70 - 6.10 x10(3)/mc L 08/02/2024 4:50 [facility] Lymph % 11.9 % 08/02/2024 4:50 [facility] Lymph Absolute 1.01 0.90 - 3.20 x10(3)/mc L 08/02/2024 4:50 [facility] Monocyte % 8.2 % 08/02/2024 4:50 [facility] Monocyte Absolute 0.70 0.30 - 0.90 x10(3)/mc L 08/02/2024 4:50 [facility] Eos % 1.4 % 08/02/2024 4:50 [facility] Eos Absolute 0.12 0.00 - 0.40 x10(3)/mc L 08/02/2024 4:50 [facility] Basophil % 0.4 % 08/02/2024 4:50 [facility] Baso Absolute <0.04 0.00 - 0.10 x10(3)/mc L 08/02/2024 4:50 [facility] Immature Gran % 0.4 % 4:50 [facility] Immature Gran Absolute <0.04 0.00 - 0.04 x10(3)/mc L 08/02/2024 4:50 [facility] Blood VENOUS BLOOD SPECIMEN / Unknown Venipuncture / Unknown 08/02/2024 4:20 AM EST 08/02/2024 4:37 AM EST Bridgette Stauffer MD HEMATOLOGY ORDERABLE S [facility] [place] [address] * Magnesium (08/02/2024 4:20 AM EST) Magnesium 0.79 0.69 - 1.07 mMol/L 08/02/2024 5:06 AM EST [facility] Blood VENOUS BLOOD SPECIMEN / Unknown Venipuncture / Unknown 08/02/2024 4:20 AM EST 08/02/2024 4:37 AM EST Bridgette Stauffer MD CHEMISTRY ORDERABLES [facility] [place] [address] * (ABNORMAL) Basic Metabolic Panel (08/02/2024 4:20 AM EST) Glucose 110 65 - 199 mg/dL 08/02/2024 5:06 [facility] Comment:Glucose Concentratio n >=200 mg/dL plus symptoms is consistent with Diabetes Mellitus. Blood Urea Nitrogen 12 10 - 20 mg/dL 08/02/2024 5:06 [facility] Creatinine 0.90 0.80 - 1.50 mg/dL 08/02/2024 5:06 [facility] Sodium 139 135 - 145 mMol/L 08/02/2024 5:06 [facility] Potassium 4.0 3.5 - 5.0 mMol/L 08/02/2024 5:06 [facility] Chloride 108(H) 98 - 107 mMol/L 08/02/2024 5:06 [facility] Carbon Dioxide 23 22 - 31 mMol/L 08/02/2024 5:06 [facility] Anion Gap 8 5 - 15 mMol/L 08/02/2024 5:06 [facility] Calcium 8.1(L) 8.5 - 10.5 mg/dL 08/02/2024 5:06 [facility] Est Glomerular Filtration Rate - Male 91 mL/min/1. 73 m?? 08/02/2024 5:06 [facility] Comment: This patient's estimated GFR was [...] BLOOD SPECIMEN / Unknown Venipuncture / Unknown 08/02/2024 4:20 AM EST 08/02/2024 4:37 AM EST Bridgette Stauffer MD CHEMISTRY ORDERABLES Performing Organization Address [facility] Co de Phone Number [facility] [place] [address] * Potassium (08/01/2024 8:39 PM EST) Potassium 4.0 3.5 - 5.0 mMol/L 08/01/2024 9:21 PM EST [facility] Blood VENOUS BLOOD SPECIMEN / Unknown Venipuncture / Unknown 08/01/2024 8:39 PM EST 08/01/2024 8:51 PM EST Jay Silverio MD CHEMISTRY ORDERABL ES Performing Organization Address [facility] Phone Number [facility] [place] [address] * POC, GLUCOSE (08/01/2024 8:35 PM EST) Glucometer, POC 112 65 - 199 mg/dL 08/01/2024 8:36 PM EST [facility] Comment:Supplemental ranges: <140 mg/dL before meals <180 mg/dL all other times of the day. Blood CAPILLARY BLOOD / Unknown 08/01/2024 8:35 PM EST 08/01/2024 8:36 PM EST Krystal Parker MD POINT OF CARE TEST O RDERABLES Performing Organization Address [facility] Co de Phone Number [facility] [place] [address] * POC, GLUCOSE (08/01/2024 4:55 PM EST) Glucometer, POC 99 65 - 199 mg/dL 08/01/2024 4:56 PM EST [facility] Comment:Supplemental ranges: <140 mg/dL before meals <180 mg/dL all other times of the day. Blood CAPILLARY BLOOD / Unknown 08/01/2024 4:55 PM EST 08/01/2024 4:56 PM EST Krystal Parker MD POINT OF CARE TEST O JOSH Performing Organization Address [facility] Co de Phone Number [facility] [place] [address] * POC, GLUCOSE (08/01/2024 12:42 PM EST) Glucometer, POC 130 65 - 199 mg/dL 08/01/2024 12:43 PM EST [facility] Comment:Supplemental ranges: <140 mg/dL before meals <180 mg/dL all other times of the day. Blood CAPILLARY BLOOD / Unknown 08/01/2024 12:42 PM EST 08/01/2024 12:43 PM EST Krystal Parker MD POINT OF CARE TEST O JOSH Performing Organization Address [facility] Co de Phone Number [facility] [place] [address] * (ABNORMAL) Cooximetry, POC (08/01/2024 10:45 AM EST) pO2, Coox 32 mmHg 08/01/2024 10:48 [facility] Hemoglobin, Coox 12.9(L) 13.7 - 16.5 g/dL 08/01/2024 10:48 AM EST [facility] Oxyhemoglobin, Coox 66.7 % 08/01/2024 10:48 [facility] Carboxyhemoglo bin, Coox 1.1 % 08/01/2024 10:48 AM EST [facility] Comment: Nonsmokers: 0.5-1.5% COHB ?? Smokers: Variable ??but usually less than 10% ?? Toxic: 20-30% COHB ?? Lethal: Greater than 60% COHB Methemoglobin, Coox 0.3 <=1.5 % 08/01/2024 10:48 AM EST [facility] Blood (Mixed Venous) 08/01/2024 10:45 AM EST 08/01/2024 10:48 AM EST Krystal Parker MD POINT OF CARE TEST O RDERABLES Performing Organization Address [facility] Co de Phone Number [facility] [place] [address] * Potassium (08/01/2024 8:20 AM EST) Potassium 4.0 3.5 - 5.0 mMol/L 08/01/2024 10:17 AM EST [facility] Blood ARTERIAL BLOOD / Unknown Venipuncture / Unknown 08/01/2024 8:20 AM EST 08/01/2024 8:30 AM EST Jay Silverio MD CHEMISTRY ORDERABL ES Performing Organization Address [facility] Co de Phone Number [facility] [place] [address] * POC, GLUCOSE (08/01/2024 7:44 AM EST) Glucometer, POC 86 65 - 199 mg/dL 08/01/2024 7:44 AM EST [facility] Comment:Supplemental ranges: <140 mg/dL before meals <180 mg/dL all other times of the day. Blood CAPILLARY BLOOD / Unknown 08/01/2024 7:44 AM EST 08/01/2024 7:44 AM EST Krystal Parker MD POINT OF CARE TEST O RDERASHAY Performing Organization Address [facility]/ZIP Co de Phone Number [facility] [place] [address] * (ABNORMAL) CBC (with Diff) (08/01/2024 4:18 AM EST) White Blood Cell 8.51 4.00 - 9.50 x10(3)/mc L 08/01/2024 4:53 AM EST [facility] Red Blood Cell 4.12(L) 4.58 - 5.54 x10(6)/mc L 08/01/2024 4:53 [facility] Hemoglobin 11.2(L) 13.7 - 16.5 g/dL 08/01/2024 4:53 [facility] Hematocrit 33.8(L) 40.5 - 48.5 % 08/01/2024 4:53 [facility] Mean Cell Volume 82.0(L) 82.9 - 93.1 fL 08/01/2024 4:53 [facility] Mean Cell Hemoglobin 27.2(L) 27.5 - 32.1 pg 08/01/2024 4:53 [facility] Mean Cell Hemoglobin Concentration 33.1 32.0 - 35.7 g/dL 08/01/2024 4:53 [facility] Platelet 94(L) 145 - 357 x10(3)/mc L 08/01/2024 4:53 [facility] Mean Platelet Volume 10.9 7.6 - 12.9 fL 08/01/2024 4:53 [facility] RDW Standard Deviation 44.2 36.0 - 45.0 fL 08/01/2024 4:53 [facility] RDW coefficient of variation 14.7(H) 11.4 - 13.8 % 08/01/2024 4:53 [facility] NRBC% auto 0.0 % 08/01/2024 4:53 [facility] NRBC Absolute <0.01 <0.01 x10(3)/mc L 08/01/2024 4:53 [facility] Neutrophil % 82.7 % 08/01/2024 4:53 [facility] Neutrophil Absolute (ANC) - Automated 7.04(H) 1.70 - 6.10 x10(3)/mc L 08/01/2024 4:53 [facility] Lymph % 8.6 % 08/01/2024 4:53 [facility] Lymph Absolute 0.73(L) 0.90 - 3.20 x10(3)/mc L 08/01/2024 4:53 [facility] Monocyte % 7.6 % 08/01/2024 4:53 [facility] Monocyte Absolute 0.65 0.30 - 0.90 x10(3)/mc L 08/01/2024 4:53 [facility] Eos % 0.5 % 08/01/2024 4:53 [facility] Eos Absolute 0.04 0.00 - 0.40 x10(3)/mc L 08/01/2024 4:53 [facility] Basophil % 0.2 % 08/01/2024 4:53 [facility] Baso Absolute <0.04 0.00 - 0.10 x10(3)/mc L 08/01/2024 4:53 [facility] Immature Gran % 0.4 % 4:53 [facility] Immature Gran Absolute <0.04 0.00 - 0.04 x10(3)/mc L 08/01/2024 4:53 [facility] Blood VENOUS BLOOD SPECIMEN / Unknown Venipuncture / Unknown 08/01/2024 4:18 AM EST 08/01/2024 4:29 AM EST Bridgette Stauffer MD HEMATOLOGY ORDERABLE S [facility] [place] [address] * Magnesium (08/01/2024 4:18 AM EST) Magnesium 0.74 0.69 - 1.07 mMol/L 08/01/2024 5:00 [facility] Blood VENOUS BLOOD SPECIMEN / Unknown Venipuncture / Unknown 08/01/2024 4:18 AM EST 08/01/2024 4:29 AM EST Bridgette Stauffer MD CHEMISTRY ORDERABLES [facility] [place] [address] * (ABNORMAL) Basic Metabolic Panel (08/01/2024 4:18 AM EST) Glucose 107 65 - 199 mg/dL 08/01/2024 5:00 [facility] Comment:Glucose Concentratio n >=200 mg/dL plus symptoms is consistent with Diabetes Mellitus. Blood Urea Nitrogen 8(L) 10 - 20 mg/dL 08/01/2024 5:00 [facility] Creatinine 0.82 0.80 - 1.50 mg/dL 08/01/2024 5:00 [facility] Sodium 137 135 - 145 mMol/L 08/01/2024 5:00 [facility] Potassium 3.9 3.5 - 5.0 mMol/L 08/01/2024 5:00 [facility] Chloride 108(H) 98 - 107 mMol/L 08/01/2024 5:00 [facility] Carbon Dioxide 21(L) 22 - 31 mMol/L 08/01/2024 5:00 [facility] Anion Gap 8 5 - 15 mMol/L 08/01/2024 5:00 [facility] Calcium 7.7(L) 8.5 - 10.5 mg/dL 08/01/2024 5:00 [facility] Est Glomerular Filtration Rate - Male 93 mL/min/1. 73 m?? 08/01/2024 5:00 [facility] Comment: This patient's estimated GFR was [...] SPECIMEN / Unknown Venipuncture / Unknown 08/01/2024 4:18 AM EST 08/01/2024 4:29 AM EST Bridgette Stauffer MD CHEMISTRY ORDERABLES Performing Organization Address [facility] Co de Phone Number [facility] [place] [address] * POC, GLUCOSE (07/31/2024 8:41 PM EST) [facility] Signature Glucometer, POC 73 65 - 199 mg/dL 07/31/2024 8:41 PM EST [facility] Comment:Supplemental ranges: <140 mg/dL before meals <180 mg/dL all other times of the day. Blood CAPILLARY BLOOD / Unknown 07/31/2024 8:41 PM EST 07/31/2024 8:41 PM EST Krystal Parker MD POINT OF CARE TEST O RDERABLES Performing Organization Address [facility] Co de Phone Number [facility] [place] [address] * CARDIAC CATHETERIZATION (07/31/2024 5:53 PM EST) Anatomical Region Laterality Modality Other Narrative 08/01/2024 12:37 PM EST ?[facility] ? Cardiac Catheterization/Intervention Report ? Patient Name: Korey Montoya. ? Procedure Date: 07/31/2024 ? A #: [id number] ? Primary Physician: Janelle, Amldonado T ? Case #: [id number] ? File Name: [id number] ? Catheterization Order Number: [id number] ? [facility] ? Final Report [place], [place] ? Patient Name: ? Korey P. Montoya ?ID#: ?[id number] ? : ?1950 ? Procedure Date: ? July 31, 2024 ?Case #: ? [id number] ? Room: ? 1 ? Case Physician: ? Maldonado Luis M.D. ?Start: ?17:10 ? Admission: ??07/29/2024 ? Referring Physician: ??Chaparro Ferrera ? Procedures: ?* Vascular Closure Device [...] Other, Aspirin and Angiotensin II Receptor ? Elvis. ? Technique: ?Radiation: Fluoro time was 0.5 [...] ? Comments: ?Impella removed from the right RADIOLOGY THERAPIST with deployment of Perclose and ?Angioseal. ??Good [...] Procedure Note Maldonado Luis MD - 08/01/2024 [facility] Cardiac Catheterization/Intervention Report Patient Name: Korey MontoyaToby Procedure Date: 07/31/2024 A #: [id number] Primary Physician: Maldonado Luis Case #: [id number] File Name: [id number] Catheterization Order Number: [id number] [facility] FinalReport [place], [place] Patient Name: Korey Montoya ID#:[id number] :1950 Procedure Date: July 31, 2024 Case #: [id number] Room: 1 Case Physician: Maldonado Luis M.D. Start: 17:10 Admission:07/29/2024 Referring Physician: Chaparro Ferrera Procedures: * Vascular Closure Device Deployment [...] was designated as ASA Class IV. The [facility] clinical frailtyscale is 4: Vulnerable. Diagnostic Tests: Electrocardiography: EKG was assessed by ECG. EKG was Abnormal. EKG showed STDeviation >= 0.5 mm. Medications Prior to Procedure: Antiarrhythmic Agent Other, Aspirin and Angiotensin II Receptor Elvis. Technique: Radiation: Fluoro time was 0.5 minutes, [...] procedures. Comments: Impella removed from the right RADIOLOGY THERAPIST with deployment of Perclose and Angioseal. Good [...] Luis MD CARDIAC CATH ORDERAB LES * POC, GLUCOSE (07/31/2024 11:04 AM EST) [facility] Glucometer, POC 82 65 - 199 mg/dL 07/31/2024 11:04 AM EST [facility] Comment:Supplemental ranges: <140 mg/dL before meals <180 mg/dL all other times of the day. Blood CAPILLARY BLOOD / Unknown 07/31/2024 11:04 AM EST 07/31/2024 11:04 AM EST Krystal Parker MD POINT OF CARE TEST O RDERABLES [facility] [place] [address] * (ABNORMAL) Blood Gas, Arterial POC (07/31/2024 8:29 AM EST) Pathologist [facility] [place] pH, Arterial 7.48(H) 7.35 - 7.45 07/31/2024 8:30 AM EST [facility] PCO2, Arterial 29(L) 35 - 45 mmHg 07/31/2024 8:30 AM EST [facility] PO2, Arterial 71(L) 85 - 104 mmHg 07/31/2024 8:30 AM EST [facility] Bicarbonate, Arterial 20.6 20.0 - 26.0 mmol/L 07/31/2024 8:30 AM EST [facility] Base Excess, Arterial -3.0 -3.0 - 3.0 mmol/L 07/31/2024 8:30 [facility] Hemoglobin, Arterial 12.3(L) 13.7 - 16.5 g/dL 07/31/2024 8:30 [facility] Oxyhemoglobin, Arterial 94.4 94.0 - 97.0 % 07/31/2024 8:30 [facility] Carboxyhemoglobin , Arterial 0.7 % 07/31/2024 8:30 [facility] Comment: Nonsmokers: 0.5-1.5% COHB ?? Smokers: Variable ??but usually less than 10% ?? Toxic: 20-30% COHB ?? Lethal: Greater than 60% COHB Methemoglobin, Arterial 0.3 <=1.5 % 07/31/2024 8:30 [facility] Sodium, Arterial 138 135 - 145 mmol/L 07/31/2024 8:30 [facility] Potassium, Arterial 3.5 3.5 - 5.0 mmol/L 07/31/2024 8:30 [facility] Chloride, Arterial 109(H) 98 - 107 mmol/L 07/31/2024 8:30 [facility] Lactate, Arterial 0.8 0.5 - 2.2 mmol/L 07/31/2024 8:30 [facility] Fraction of Inspired Oxygen 21 % 07/31/2024 8:30 [facility] PF Ratio 338 Ratio 07/31/2024 8:30 [facility] Comment:PF ratio calculated using the non-temperature corrected pO2 result. IONIZED CALCIUM, ARTERIAL 1.08(L) 1.15 - 1.33 mmol/L 07/31/2024 8:30 [facility] Glucose, Arterial 86 65 - 199 mg/dL 07/31/2024 8:30 [facility] Comment:Glucose Concentratio n >=200 mg/dL plus symptoms is consistent with Diabetes Mellitus. Blood ARTERIAL BLOOD / Unknown 07/31/2024 8:29 AM EST 07/31/2024 8:30 AM EST Krystal Parker MD POINT OF CARE TEST O JOSH Performing Organization Address [facility]/ZIP Co de Phone Number [facility] [place] [address] * POC, GLUCOSE (07/31/2024 7:47 AM EST) Glucometer, POC 82 65 - 199 mg/dL 07/31/2024 7:53 [facility] Comment:Supplemental ranges: <140 mg/dL before meals <180 mg/dL all other times of the day. Blood CAPILLARY BLOOD / Unknown 07/31/2024 7:47 AM EST 07/31/2024 7:53 AM EST Krystal Parker MD POINT OF CARE TEST O JOSH Performing Organization Address [facility] Co de Phone Number [facility] [place] [address] * (ABNORMAL) CBC (with Diff) (07/31/2024 1:08 AM EST) White Blood Cell 10.25(H) 4.00 - 9.50 x10(3)/mc L 07/31/2024 1:28 [facility] Red Blood Cell 4.13(L) 4.58 - 5.54 x10(6)/mc L 07/31/2024 1:28 [facility] Hemoglobin 11.2(L) 13.7 - 16.5 g/dL 07/31/2024 1:28 [facility] Hematocrit 33.9(L) 40.5 - 48.5 % 07/31/2024 1:28 [facility] Mean Cell Volume 82.1(L) 82.9 - 93.1 fL 07/31/2024 1:28 [facility] Mean Cell Hemoglobin 27.1(L) 27.5 - 32.1 pg 07/31/2024 1:28 [facility] Mean Cell Hemoglobin Concentration 33.0 32.0 - 35.7 g/dL 07/31/2024 1:28 [facility] Platelet 109(L) 145 - 357 x10(3)/mc L 07/31/2024 1:28 [facility] Mean Platelet Volume 10.4 7.6 - 12.9 fL 07/31/2024 1:28 [facility] RDW Standard Deviation 45.1(H) 36.0 - 45.0 fL 07/31/2024 1:28 [facility] RDW coefficient of variation 15.1(H) 11.4 - 13.8 % 07/31/2024 1:28 [facility] NRBC% auto 0.0 % 07/31/2024 1:28 [facility] NRBC Absolute <0.01 <0.01 x10(3)/mc L 07/31/2024 1:28 [facility] Neutrophil % 79.7 % 07/31/2024 1:28 [facility] Neutrophil Absolute (ANC) - Automated 8.17(H) 1.70 - 6.10 x10(3)/mc L 07/31/2024 1:28 [facility] Lymph % 12.8 % 07/31/2024 1:28 [facility] Lymph Absolute 1.31 0.90 - 3.20 x10(3)/mc L 07/31/2024 1:28 [facility] Monocyte % 6.9 % 07/31/2024 1:28 [facility] Monocyte Absolute 0.71 0.30 - 0.90 x10(3)/mc L 07/31/2024 1:28 AM [facility] Eos % 0.1 % 07/31/2024 1:28 AM [facility] Eos Absolute <0.04 0.00 - 0.40 x10(3)/mc L 07/31/2024 1:28 AM EST [facility] Basophil % 0.3 % 07/31/2024 1:28 AM EST [facility] Baso Absolute <0.04 0.00 - 0.10 x10(3)/mc L 07/31/2024 1:28 AM EST [facility] Immature Gran % 0.2 % 1:28 AM EST [facility] Immature Gran Absolute <0.04 0.00 - 0.04 x10(3)/mc L 07/31/2024 1:28 AM EST [facility] Blood VENOUS BLOOD SPECIMEN / Unknown Venipuncture / Unknown 07/31/2024 1:08 AM EST 07/31/2024 1:18 AM EST Bridgette Stauffer MD HEMATOLOGY ORDERABLE S Performing Organization Address City/[facility]/ZIP Co de Phone Number [facility] [place] [address] * Magnesium (07/31/2024 1:08 AM EST) Magnesium 0.89 0.69 - 1.07 mMol/L 07/31/2024 1:46 AM EST [facility] Blood VENOUS BLOOD SPECIMEN / Unknown Venipuncture / Unknown 07/31/2024 1:08 AM EST 07/31/2024 1:18 AM EST Bridgette Stauffer MD CHEMISTRY ORDERABLES [facility] [place] [address] * (ABNORMAL) Basic Metabolic Panel (07/31/2024 1:08 AM EST) Glucose 97 65 - 199 mg/dL 07/31/2024 1:46 AM EST [facility] Comment:Glucose Concentratio n >=200 mg/dL plus symptoms is consistent with Diabetes Mellitus. Blood Urea Nitrogen 11 10 - 20 mg/dL 07/31/2024 1:46 AM [facility] Creatinine 0.96 0.80 - 1.50 mg/dL 07/31/2024 1:46 AM EST [facility] Sodium 140 135 - 145 mMol/L 07/31/2024 1:46 AM [facility] Potassium 4.1 3.5 - 5.0 mMol/L 07/31/2024 1:46 AM EST [facility] Chloride 110(H) 98 - 107 mMol/L 07/31/2024 1:46 AM [facility] Carbon Dioxide 24 22 - 31 mMol/L 07/31/2024 1:46 AM [facility] Anion Gap 6 5 - 15 mMol/L 07/31/2024 1:46 AM [facility] Calcium 7.7(L) 8.5 - 10.5 mg/dL 07/31/2024 1:46 AM [facility] Est Glomerular Filtration Rate - Male 84 mL/min/1. 73 m?? 07/31/2024 1:46 AM [facility] Comment: This patient's estimated GFR was [...] 1:08 AM EST 07/31/2024 1:18 AM EST Bridgette Stauffer MD CHEMISTRY ORDERABLES [facility] [place] [address] * (ABNORMAL) Hepatic Function Panel (07/31/2024 1:08 AM EST) Albumin 3.1(L) 3.2 - 5.2 g/dL 07/31/2024 1:46 AM [facility] Aspartate Aminotransferase 192(H) <=39 unit/L 07/31/2024 1:46 AM [facility] Alanine Aminotransferase 59(H) 0 - 55 unit/L 07/31/2024 1:46 AM [facility] Alkaline Phosphatase 46 40 - 130 unit/L 07/31/2024 1:46 AM [facility] Bilirubin, Total 0.4 <=1.3 mg/dL 07/31/2024 1:46 AM [facility] Bilirubin, Direct <0.2 0.0 - 0.3 mg/dL 07/31/2024 1:46 AM [facility] Protein, Total 5.0(L) 6.1 - 8.0 g/dL 07/31/2024 1:46 AM [facility] Blood VENOUS BLOOD SPECIMEN / Unknown Venipuncture / Unknown 07/31/2024 1:08 AM EST 07/31/2024 1:18 AM EST Krystal Parker MD CHEMISTRY ORDERABLES Performing Organization Address City/[facility] Co de Phone Number [facility] [place] [address] * POC, GLUCOSE (07/30/2024 8:03 PM EST) Glucometer, POC 86 65 - 199 mg/dL 07/30/2024 8:03 PM [facility] Comment:Supplemental ranges: <140 mg/dL before meals <180 mg/dL all other times of the day. Blood CAPILLARY BLOOD / Unknown 07/30/2024 8:03 PM EST 07/30/2024 8:03 PM EST Krystal Parker MD POINT OF CARE TEST O RDERABLES [facility] [place] [address] * Potassium (07/30/2024 8:03 PM EST) Potassium 3.8 3.5 - 5.0 mMol/L 07/30/2024 9:13 PM EST [facility] Blood VENOUS BLOOD SPECIMEN / Unknown Venipuncture / Unknown 07/30/2024 8:03 PM EST 07/30/2024 8:22 PM EST Jay Silverio MD CHEMISTRY ORDERABL ES Performing Organization Address [facility] Co de Phone Number [facility] [place] [address] * POC, GLUCOSE (07/30/2024 6:23 PM EST) Glucometer, POC 93 65 - 199 mg/dL 07/30/2024 6:24 PM EST [facility] Comment:Supplemental ranges: <140 mg/dL before meals <180 mg/dL all other times of the day. Blood CAPILLARY BLOOD / Unknown 07/30/2024 6:23 PM EST 07/30/2024 6:24 PM EST Krystal Parker MD POINT OF CARE TEST O RDERABLES Performing Organization Address City/[facility]/ZIP Co de Phone Number [facility] [place] [address] * POC, GLUCOSE (07/30/2024 5:08 PM EST) Glucometer, POC 78 65 - 199 mg/dL 07/30/2024 5:08 PM EST [facility] Comment:Supplemental ranges: <140 mg/dL before meals <180 mg/dL all other times of the day. Blood CAPILLARY BLOOD / Unknown 07/30/2024 5:08 PM EST 07/30/2024 5:08 PM EST Krystal Parker MD POINT OF CARE TEST O RDERABLES Performing Organization Address [facility]/ZIP Co de Phone Number [facility] [place] [address] * (ABNORMAL) Phosphorus (07/30/2024 3:08 PM EST) Phosphorus 2.1(L) 2.5 - 4.5 mg/dL 07/30/2024 3:58 PM EST [facility] Blood VENOUS BLOOD SPECIMEN / Unknown Venipuncture / Unknown 07/30/2024 3:08 PM EST 07/30/2024 3:12 PM EST Jay Silverio MD CHEMISTRY ORDERABL ES Performing Organization Address [facility] Co de Phone Number [facility] [place] [address] * Magnesium (07/30/2024 3:08 PM EST) Magnesium 0.90 0.69 - 1.07 mMol/L 07/30/2024 3:58 PM EST [facility] Blood VENOUS BLOOD SPECIMEN / Unknown Venipuncture / Unknown 07/30/2024 3:08 PM EST 07/30/2024 3:12 PM EST Jay Silverio MD CHEMISTRY ORDERABL ES Performing Organization Address [facility]/ZIP Co de Phone Number [facility] [place] [address] * (ABNORMAL) Basic Metabolic Panel (07/30/2024 3:08 PM EST) Glucose 105 65 - 199 mg/dL 07/30/2024 4:17 PM EST [facility] Comment:Glucose Concentratio n >=200 mg/dL plus symptoms is consistent with Diabetes Mellitus. Blood Urea Nitrogen 13 10 - 20 mg/dL 07/30/2024 4:17 PM EST [facility] Creatinine 1.01 0.80 - 1.50 mg/dL 07/30/2024 4:17 PM EST [facility] Sodium 141 135 - 145 mMol/L 07/30/2024 4:17 PM EST [facility] Potassium 3.4(L) 3.5 - 5.0 mMol/L 07/30/2024 4:17 PM [facility] Chloride 109(H) 98 - 107 mMol/L 07/30/2024 4:17 PM [facility] Carbon Dioxide 21(L) 22 - 31 mMol/L 07/30/2024 4:17 PM [facility] Anion Gap 11 5 - 15 mMol/L 07/30/2024 4:17 PM [facility] Calcium 7.9(L) 8.5 - 10.5 mg/dL 07/30/2024 4:17 PM [facility] Est Glomerular Filtration Rate - Male 79 mL/min/1. 73 m?? 07/30/2024 4:17 PM [facility] Comment: This patient's estimated GFR was [...] EST Jay Silverio MD CHEMISTRY ORDERABL ES [facility] [place] [address] * ECHO LMTD W CONTRAST W LMTD SPEC DOPP COLOR DOPP (07/30/2024 11:42 AM EST) Anatomical Region Laterality Modality Cardiac Other 07/30/2024 10:2 2 AM EST Narrative 07/30/2024 12:34 PM EST [address] [place] [address] ? Echocardiogram Report Name: KOREY MONTOYA ? Study Date: 07/30/2024 10:22 AMBP: 124/66 mmHg : 1950 ? Height: 168 cm ? Account: [id number] Age: 74 yrs ? Weight: 65 kg Gender: Male ?BSA: 1.7 m2 Ordering Physician: Jay Silverio MD Referring Physician: CHAPARRO FERRERA Performed By: OMERO Millan Reason For Study: ST elevation myocardial infarction involving left anterior descending (LAD) coronary artery Interpreting Fellow: Ivan Hernandez. Exam Location: [facility]. Interpretation Summary Left ventricle is severely dilated. [...] Compared to the overnight study by the customer operations associate fellow the impella position is stable. 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 Procedure Limited - 72062. Image enhancement Definity was used for both [...] ?TAPSE_phl: 1.8 cm Doppler MV E max carlos: 55.5 cm/sec MV A max carlos: 46.1 cm/sec MV E/A: 1.2 Lat Peak E' Carlos: 8.7 cm/sec E/e' (lat): 6.4 Med Peak E' Carlos: 6.9 cm/sec E/e' (med): 8.1 E/e' Average: 7.2 TR max carlos: 284.6 cm/sec I ?WMSI = 2.50 ? % Normal = 0 ?Segments ??Size X - Cannot ?2 - ?4 - ?1-2 ? small Interpret ?1 - Normal ?? Hypokinetic 3 - Akinetic Dyskinetic ?? 3-5 ? moderate 5 - ? 6-14 ?large Aneurysmal ?15-16 ?? diffuse Procedure Note Kathleen Banda MD - 07/30/2024 [address] [place] [address] Echocardiogram Report Name: KOREY MONTOYA Study Date: 410:22 AMBP: 124/66 mmHg : 1950 Height: 168 cm Account: [id number] Age: 74 yrs Weight: 65 kg Gender: Male BSA: 1.7 m2 Ordering Physician: Jay Silverio MD Referring Physician: CHAPARRO FERRERA Performed By: OMERO iMllan Reason For Study: ST elevation myocardial infarction involving leftanterior descending (LAD) coronary artery Interpreting Fellow: Ivan Hernandez. Exam Location: [facility]. Interpretation Summary Left ventricle is severely dilated. [...] Compared to the overnight study by the customer operations associate fellow the impella positionis stable. The global left ventricular systolic function has improvedpredominantly via recruitment outside the LAD territory which remains akinetic. Procedure Limited - 95769. Image enhancement Definity was used for both [...] TAPSE_phl: 1.8 cm Doppler MV E max carlos: 55.5 cm/sec MV A max carlos: 46.1 cm/sec MV E/A: 1.2 Lat Peak E' Carlos: 8.7 cm/sec E/e' (lat): 6.4 Med Peak E' Carlos: 6.9 cm/sec E/e' (med): 8.1 E/e' Average: 7.2 TR max carlos: 284.6 cm/sec I WMSI = 2.50 % Normal = 0 SegmentsSize X - Cannot 2 - 4 - 1-2small Interpret 1 - Normal Hypokinetic 3 - Akinetic Dyskinetic 3-5moderate 5 - 6-14large Aneurysmal 15-16diffuse Jay Silverio MD ECHO ORDERABLES * POC, GLUCOSE (07/30/2024 11:17 AM EST) Glucometer, POC 97 65 - 199 mg/dL 07/30/2024 11:17 AM EST [facility] Comment:Supplemental ranges: <140 mg/dL before meals <180 mg/dL all other times of the day. Blood CAPILLARY BLOOD / Unknown 07/30/2024 11:17 AM EST 07/30/2024 11:17 AM EST Jay Silverio MD POINT OF CARE TEST ORDERABLES [facility] [place] [address] * (ABNORMAL) Blood Gas, Arterial POC (07/30/2024 8:16 AM EST) pH, Arterial 7.44 7.35 - 7.45 07/30/2024 8:17 AM EST [facility] PCO2, Arterial 29(L) 35 - 45 mmHg 07/30/2024 8:17 AM EST [facility] PO2, Arterial 109(H) 85 - 104 mmHg 07/30/2024 8:17 AM EST [facility] Bicarbonate, Arterial 19.4(L) 20.0 - 26.0 mmol/L 07/30/2024 8:17 AM [facility] Base Excess, Arterial -4.7(L) -3.0 - 3.0 mmol/L 07/30/2024 8:17 AM [facility] Hemoglobin, Arterial 12.2(L) 13.7 - 16.5 g/dL 07/30/2024 8:17 AM [facility] Oxyhemoglobin, Arterial 97.1(H) 94.0 - 97.0 % 07/30/2024 8:17 AM [facility] Carboxyhemoglob in, Arterial 1.0 % 07/30/2024 8:17 AM [facility] Comment: Nonsmokers: 0.5-1.5% COHB ?? Smokers: Variable ??but usually less than 10% ?? Toxic: 20-30% COHB ?? Lethal: Greater than 60% COHB Methemoglobin, Arterial 0.1 <=1.5 % 07/30/2024 8:17 AM [facility] Sodium, Arterial 132(L) 135 - 145 mmol/L 07/30/2024 8:17 AM [facility] Potassium, Arterial 3.9 3.5 - 5.0 mmol/L 07/30/2024 8:17 AM [facility] Chloride, Arterial 105 98 - 107 mmol/L 07/30/2024 8:17 AM [facility] Lactate, Arterial 1.2 0.5 - 2.2 mmol/L 07/30/2024 8:17 AM [facility] Fraction of Inspired Oxygen 21 % 07/30/2024 8:17 AM [facility] PF Ratio 519 Ratio 07/30/2024 8:17 AM [facility] Comment:PF ratio calculated using the non-temperature corrected pO2 result. IONIZED CALCIUM, ARTERIAL 1.15 1.15 - 1.33 mmol/L 07/30/2024 8:17 AM [facility] Blood ARTERIAL BLOOD / Unknown 07/30/2024 8:16 AM EST 07/30/2024 8:17 AM EST Jay Silverio MD POINT OF CARE TEST ORDERABLES [facility] [place] [address] * (ABNORMAL) Troponin - Single (07/30/2024 8:09 AM EST) Troponin-T, High Sensitivity 8,651(H) <=22 ng/L 07/30/2024 9:06 AM EST [facility] Comment: This patient's troponin T [...] troponin value can be found in the [facility] Test Catalog Troponin - https://[facility]-.testcatalog.org/catalogs/565/files/93070 Reference: Fourth Jermyn Definition of Myocardial Infarction. Journal of the [place] [employer] 2018;72:9399-4782 Blood VENOUS BLOOD SPECIMEN / Unknown Venipuncture / Unknown 07/30/2024 8:09 AM EST 07/30/2024 8:26 AM EST Jay Silverio MD CHEMISTRY ORDERABL ES Performing Organization Address City/[facility]/ZIP Co de Phone Number [facility] [place] [address] * POC, GLUCOSE (07/30/2024 7:40 AM EST) [facility] Glucometer, POC 111 65 - 199 mg/dL 07/30/2024 7:40 AM [facility] Comment:Supplemental ranges: <140 mg/dL before meals <180 mg/dL all other times of the day. Blood CAPILLARY BLOOD / Unknown 07/30/2024 7:40 AM EST 07/30/2024 7:40 AM EST Jay Silverio MD POINT OF CARE TEST ORDERABLES [facility] [place] [address] * (ABNORMAL) CBC (with Diff) (07/30/2024 2:11 AM EST) [facility] White Blood Cell 11.25(H) 4.00 - 9.50 x10(3)/mc L 07/30/2024 2:33 AM [facility] Red Blood Cell 4.50(L) 4.58 - 5.54 x10(6)/mc L 07/30/2024 2:33 AM [facility] Hemoglobin 12.2(L) 13.7 - 16.5 g/dL 07/30/2024 2:33 AM [facility] Hematocrit 37.1(L) 40.5 - 48.5 % 07/30/2024 2:33 AM [facility] Mean Cell Volume 82.4(L) 82.9 - 93.1 fL 07/30/2024 2:33 AM [facility] Mean Cell Hemoglobin 27.1(L) 27.5 - 32.1 pg 07/30/2024 2:33 AM [facility] Mean Cell Hemoglobin Concentration 32.9 32.0 - 35.7 g/dL 07/30/2024 2:33 AM [facility] Platelet 166 145 - 357 x10(3)/mc L 07/30/2024 2:33 AM [facility] Mean Platelet Volume 10.6 7.6 - 12.9 fL 07/30/2024 2:33 AM [facility] RDW Standard Deviation 44.6 36.0 - 45.0 fL 07/30/2024 2:33 AM [facility] RDW coefficient of variation 14.6(H) 11.4 - 13.8 % 07/30/2024 2:33 AM [facility] NRBC% auto 0.0 % 07/30/2024 2:33 AM [facility] NRBC Absolute <0.01 <0.01 x10(3)/mc L 07/30/2024 2:33 AM [facility] Neutrophil % 88.9 % 07/30/2024 2:33 AM [facility] Neutrophil Absolute (ANC) - Automated 10.00(H) 1.70 - 6.10 x10(3)/mc L 07/30/2024 2:33 AM [facility] Lymph % 5.1 % 07/30/2024 2:33 AM [facility] Lymph Absolute 0.57(L) 0.90 - 3.20 x10(3)/mc L 07/30/2024 2:33 AM [facility] Monocyte % 5.4 % 07/30/2024 2:33 AM [facility] Monocyte Absolute 0.61 0.30 - 0.90 x10(3)/mc L 07/30/2024 2:33 AM [facility] Eos % 0.0 % 07/30/2024 2:33 AM [facility] Eos Absolute <0.04 0.00 - 0.40 x10(3)/mc L 07/30/2024 2:33 AM [facility] Basophil % 0.2 % 07/30/2024 2:33 AM [facility] Baso Absolute <0.04 0.00 - 0.10 x10(3)/mc L 07/30/2024 2:33 AM [facility] Immature Gran % 0.4 % 2:33 AM EST [facility] Immature Gran Absolute 0.05(H) 0.00 - 0.04 x10(3)/mc L 07/30/2024 2:33 AM [facility] Blood VENOUS BLOOD SPECIMEN / Unknown Venipuncture / Unknown 07/30/2024 2:11 AM EST 07/30/2024 2:22 AM EST Bridgette Stauffer MD HEMATOLOGY ORDERABLE S Performing Organization Address City/[facility]/ZIP Co de Phone Number [facility] [place] [address] * Magnesium (07/30/2024 2:11 AM EST) Pathologist [facility] Magnesium 1.01 0.69 - 1.07 mMol/L 07/30/2024 2:51 AM [facility] Blood VENOUS BLOOD SPECIMEN / Unknown Venipuncture / Unknown 07/30/2024 2:11 AM EST 07/30/2024 2:22 AM EST Bridgette Stauffer MD CHEMISTRY ORDERABLES Performing Organization Address City/[facility] Co de Phone Number [facility] [place] [address] * (ABNORMAL) Basic Metabolic Panel (07/30/2024 2:11 AM EST) Pathologist [facility] Glucose 190 65 - 199 mg/dL 07/30/2024 2:51 AM [facility] Comment:Glucose Concentratio n >=200 mg/dL plus symptoms is consistent with Diabetes Mellitus. Blood Urea Nitrogen 15 10 - 20 mg/dL 07/30/2024 2:51 AM [facility] Creatinine 0.88 0.80 - 1.50 mg/dL 07/30/2024 2:51 AM [facility] Sodium 135 135 - 145 mMol/L 07/30/2024 2:51 AM [facility] Potassium 4.9 3.5 - 5.0 mMol/L 07/30/2024 2:51 AM EST [facility] Chloride 105 98 - 107 mMol/L 07/30/2024 2:51 AM [facility] Carbon Dioxide 19(L) 22 - 31 mMol/L 07/30/2024 2:51 AM [facility] Anion Gap 11 5 - 15 mMol/L 07/30/2024 2:51 AM [facility] Calcium 7.7(L) 8.5 - 10.5 mg/dL 07/30/2024 2:51 AM [facility] Est Glomerular Filtration Rate - Male 91 mL/min/1. 73 m?? 07/30/2024 2:51 AM [facility] Comment: This patient's estimated GFR was [...] SPECIMEN / Unknown Venipuncture / Unknown 07/30/2024 2:11 AM EST 07/30/2024 2:22 AM EST Bridgette Stauffer MD CHEMISTRY ORDERABLES [facility] [place] [address] * (ABNORMAL) Cooximetry, POC (07/30/2024 1:00 AM EST) pO2, Coox 28 mmHg 07/30/2024 1:03 AM [facility] Hemoglobin, Coox 12.7(L) 13.7 - 16.5 g/dL 07/30/2024 1:03 AM [facility] Oxyhemoglobin, Coox 54.9 % 07/30/2024 1:03 AM [facility] Carboxyhemoglo bin, Coox 1.0 % 07/30/2024 1:03 AM [facility] Comment: Nonsmokers: 0.5-1.5% COHB ?? Smokers: Variable ??but usually less than 10% ?? Toxic: 20-30% COHB ?? Lethal: Greater than 60% COHB Methemoglobin, Coox 0.0 <=1.5 % 07/30/2024 1:03 AM [facility] Blood (Mixed Venous) 07/30/2024 1:00 AM EST 07/30/2024 1:03 AM EST Jay Silverio MD POINT OF CARE TEST ORDERABLES Performing Organization Address City/State/[facility] Co de Phone Number [facility] [place] [address] * (ABNORMAL) Blood Gas, Arterial POC (07/30/2024 12:57 AM EST) pH, Arterial 7.38 7.35 - 7.45 07/30/2024 12:58 AM [facility] PCO2, Arterial 34(L) 35 - 45 mmHg 07/30/2024 12:58 AM [facility] PO2, Arterial 141(H) 85 - 104 mmHg 07/30/2024 12:58 AM [facility] Bicarbonate, Arterial 19.5(L) 20.0 - 26.0 mmol/L 07/30/2024 12:58 AM [facility] Base Excess, Arterial -5.6(L) -3.0 - 3.0 mmol/L 07/30/2024 12:58 AM [facility] Hemoglobin, Arterial 13.0(L) 13.7 - 16.5 g/dL 07/30/2024 12:58 AM [facility] Oxyhemoglobin, Arterial 98.4(H) 94.0 - 97.0 % 07/30/2024 12:58 AM [facility] Carboxyhemoglobin , Arterial 0.4 % 07/30/2024 12:58 AM [facility] Comment: Nonsmokers: 0.5-1.5% COHB ?? Smokers: Variable ??but usually less than 10% ?? Toxic: 20-30% COHB ?? Lethal: Greater than 60% COHB Methemoglobin, Arterial 0.1 <=1.5 % 07/30/2024 12:58 AM [facility] Sodium, Arterial 130(L) 135 - 145 mmol/L 07/30/2024 12:58 AM [facility] Potassium, Arterial 4.5 3.5 - 5.0 mmol/L 07/30/2024 12:58 AM [facility] Chloride, Arterial 104 98 - 107 mmol/L 07/30/2024 12:58 AM [facility] Lactate, Arterial 1.3 0.5 - 2.2 mmol/L 07/30/2024 12:58 AM [facility] Flow Rate 2.0 L/min 07/30/2024 12:58 AM [facility] IONIZED CALCIUM, ARTERIAL 1.12(L) 1.15 - 1.33 mmol/L 07/30/2024 12:58 AM [facility] Glucose, Arterial 184 65 - 199 mg/dL 07/30/2024 12:58 AM [facility] Comment:Glucose Concentratio n >=200 mg/dL plus symptoms is consistent with Diabetes Mellitus. Blood ARTERIAL BLOOD / Unknown 07/30/2024 12:57 AM EST 07/30/2024 12:58 AM EST Jay Silverio MD POINT OF CARE TEST ORDERABLES [facility] [place] [address] * (ABNORMAL) Troponin - Single (07/29/2024 10:31 PM EST) Troponin-T, High Sensitivity >10,000(H ) <=22 ng/L 07/29/2024 11:03 PM EST [facility] Comment: This patient's troponin T [...] troponin value can be found in the [facility] Test Catalog Troponin - https://[facility]-.testcatalog.org/catalogs/565/files/77274 Reference: Fourth Jermyn Definition of Myocardial Infarction. Journal of the [place] [employer] 2018;72:0181-9683 Blood VENOUS BLOOD SPECIMEN / Unknown Venipuncture / Unknown 07/29/2024 10:31 PM EST 07/29/2024 10:36 PM EST Yrn Ward MD CHEMISTRY ORDERABL ES [facility] [place] [address] * Potassium (07/29/2024 8:11 PM EST) Potassium 4.1 3.5 - 5.0 mMol/L 07/29/2024 8:52 PM EST [facility] Blood VENOUS BLOOD SPECIMEN / Unknown Venipuncture / Unknown 07/29/2024 8:11 PM EST 07/29/2024 8:16 PM EST Jay Silverio MD CHEMISTRY ORDERABL ES [facility] [place] [address] * (ABNORMAL) Troponin - Single (07/29/2024 8:11 PM EST) Troponin-T, High Sensitivity >10,000(H ) <=22 ng/L 07/29/2024 8:52 PM EST [facility] Comment: This patient's troponin T [...] troponin value can be found in the [facility] Test Catalog Troponin - https://[facility].testcatalog.org/catalogs/565/files/49046 Reference: Fourth Jermyn Definition of Myocardial Infarction. Journal of the [place] [employer] 2018;72:5860-0895 Blood VENOUS BLOOD SPECIMEN / Unknown Venipuncture / Unknown 07/29/2024 8:11 PM EST 07/29/2024 8:16 PM EST Jay Silverio MD CHEMISTRY ORDERABL ES [facility] [place] [address] * (ABNORMAL) Phosphorus (07/29/2024 8:11 PM EST) Phosphorus 2.1(L) 2.5 - 4.5 mg/dL 07/29/2024 8:52 PM EST [facility] Blood VENOUS BLOOD SPECIMEN / Unknown Venipuncture / Unknown 07/29/2024 8:11 PM EST 07/29/2024 8:16 PM EST Jay Silverio MD CHEMISTRY ORDERABL ES Performing Organization Address City/[facility]/ZIP Co de Phone Number [facility] [place] [address] * POC, GLUCOSE (07/29/2024 8:09 PM EST) Glucometer, POC 142 65 - 199 mg/dL 07/29/2024 8:09 PM EST [facility] Comment:Supplemental ranges: <140 mg/dL before meals <180 mg/dL all other times of the day. Blood CAPILLARY BLOOD / Unknown 07/29/2024 8:09 PM EST 07/29/2024 8:09 PM EST Jay Silverio MD POINT OF CARE TEST ORDERABLES Performing Organization Address City/[facility]/ZIP Co de Phone Number [facility] [place] [address] * ABORH RECHECK (07/29/2024 6:43 PM EST) ABORH Recheck AB POSITIVE 07/29/2024 10:13 PM EST [facility] Blood VENOUS BLOOD SPECIMEN / Unknown Venipuncture / Unknown 07/29/2024 6:43 PM EST 07/29/2024 7:15 PM EST Jay Silverio MD BLOOD BANK LAB ORD ERABLES Performing Organization Address City/[facility]/ZIP Co de Phone Number [facility] [place] [address] * POC, GLUCOSE (07/29/2024 5:57 PM EST) Glucometer, POC 166 65 - 199 mg/dL 07/29/2024 5:57 PM EST [facility] Comment:Supplemental ranges: <140 mg/dL before meals <180 mg/dL all other times of the day. Blood CAPILLARY BLOOD / Unknown 07/29/2024 5:57 PM EST 07/29/2024 5:57 PM EST Jay Silverio MD POINT OF CARE TEST ORDERABLES Performing Organization Address City/[facility]/ZIP Co de Phone Number [facility] [place] [address] * Type and screen ([facility] (07/29/2024 5:56 PM EST) [facility] ABORH Type AB POSITIVE 07/29/2024 9:44 PM EST [facility] PATIENT HISTORY Not Found 07/29/2024 9:44 PM EST [facility] Expires at [id number] on: 08/01/2024 07/29/2024 9:44 PM EST [facility] ANTIBODY SCREEN AUTOMATED Negative 07/29/2024 9:44 PM EST [facility] T&S only valid at [facility] 07/29/2024 9:44 PM EST [facility] Blood VENOUS BLOOD SPECIMEN / Unknown Venipuncture / Unknown 07/29/2024 5:56 PM EST 07/29/2024 6:07 PM EST Narrative [facility] - 07/29/2024 9:44 PM EST This Type and Screen result is only valid at the [facility] Jay Silverio MD BLOOD BANK LAB ORD ERABLES Performing Organization Address City/[facility]/ZIP Co de Phone Number [facility] [place] [address] * (ABNORMAL) Troponin - Single (07/29/2024 4:52 PM EST) [facility] Troponin-T, High Sensitivity >10,000(H ) <=22 ng/L 07/29/2024 5:25 PM EST [facility] Comment: This patient's troponin T [...] troponin value can be found in the [facility] Test Catalog Troponin - https://[email or web address]-.testcatalog.org/catalogs/565/files/17922 Reference: Fourth Jermyn Definition of Myocardial Infarction. Journal of the [place] [employer] 2018;72:7498-6633 Blood VENOUS BLOOD SPECIMEN / Unknown Venipuncture / Unknown 07/29/2024 4:52 PM EST 07/29/2024 4:57 PM EST Jay Silverio MD CHEMISTRY ORDERABL ES Performing Organization Address City/State/[facility] [place] [address] * EKG 12 Lead (07/29/2024 4:21 PM EST) Ventricular rate 72 BPM MUSE SYSTEM Atrial Rate 72 BPM MUSE SYSTEM P-R Interval 168 ms MUSE SYSTEM QRS Duration 82 ms MUSE SYSTEM Q-T Interval 392 ms MUSE SYSTEM QTC Calculated (Bezet) 429 ms MUSE SYSTEM Calculated P [place] 71 degrees MUSE SYSTEM Calculated R [place] 77 degrees MUSE SYSTEM Calculated T [place] 28 degrees MUSE SYSTEM INTERPRETATION Sinus rhythm with Premature supraventricular complexes and Occasional Premature ventricular complexes Low voltage QRS 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) Lateral injury pattern ACUTE NM / STEMI Abnormal ECG When compared with ECG of 29-JUL-2024 13:43, (unconfirmed) Serial changes of evolving Anteroseptal infarct Present Confirmed by MD Velazquez Jose ([id number]) on 07/31/2024 5:30:06 AM MUSE SYSTEM 07/29/2024 4:21 PM EST 07/31/2024 5:30 AM EST Jay Silverio MD ECG ORDERABLES MUSE SYSTEM * (ABNORMAL) Blood Gas, Arterial POC (07/29/2024 4:21 PM EST) pH, Arterial 7.37 7.35 - 7.45 07/29/2024 4:22 PM [facility] PCO2, Arterial 36 35 - 45 mmHg 07/29/2024 4:22 PM [facility] PO2, Arterial 71(L) 85 - 104 mmHg 07/29/2024 4:22 PM [facility] Bicarbonate, Arterial 20.4 20.0 - 26.0 mmol/L 07/29/2024 4:22 PM [facility] Base Excess, Arterial -4.8(L) -3.0 - 3.0 mmol/L 07/29/2024 4:22 PM [facility] Hemoglobin, Arterial 12.2(L) 13.7 - 16.5 g/dL 07/29/2024 4:22 PM [facility] Oxyhemoglobin, Arterial 93.8(L) 94.0 - 97.0 % 07/29/2024 4:22 PM [facility] Carboxyhemoglobin , Arterial 0.5 % 07/29/2024 4:22 PM [facility] Comment: Nonsmokers: 0.5-1.5% COHB ?? Smokers: Variable ??but usually less than 10% ?? Toxic: 20-30% COHB ?? Lethal: Greater than 60% COHB Methemoglobin, Arterial 0.3 <=1.5 % 07/29/2024 4:22 PM [facility] Sodium, Arterial 134(L) 135 - 145 mmol/L 07/29/2024 4:22 PM [facility] Potassium, Arterial 4.2 3.5 - 5.0 mmol/L 07/29/2024 4:22 PM [facility] Chloride, Arterial 107 98 - 107 mmol/L 07/29/2024 4:22 PM [facility] Lactate, Arterial 1.5 0.5 - 2.2 mmol/L 07/29/2024 4:22 PM [facility] Fraction of Inspired Oxygen 21 % 07/29/2024 4:22 PM [facility] PF Ratio 338 Ratio 07/29/2024 4:22 PM [facility] Comment:PF ratio calculated using the non-temperature corrected pO2 result. IONIZED CALCIUM, ARTERIAL 1.12(L) 1.15 - 1.33 mmol/L 07/29/2024 4:22 PM [facility] Glucose, Arterial 181 65 - 199 mg/dL 07/29/2024 4:22 PM [facility] Comment:Glucose Concentratio n >=200 mg/dL plus symptoms is consistent with Diabetes Mellitus. Blood ARTERIAL BLOOD / Unknown 07/29/2024 4:21 PM EST 07/29/2024 4:22 PM EST Jay Silverio MD POINT OF CARE TEST ORDERABLES Performing Organization Address City/[facility]/ZIP Co de Phone Number [facility] [place] [address] * POC, GLUCOSE (07/29/2024 4:19 PM EST) [facility] Signature Glucometer, POC 185 65 - 199 mg/dL 07/29/2024 4:19 PM [facility] Comment:Supplemental ranges: <140 mg/dL before meals <180 mg/dL all other times of the day. Blood CAPILLARY BLOOD / Unknown 07/29/2024 4:19 PM EST 07/29/2024 4:19 PM EST Jay Silverio MD POINT OF CARE TEST ORDERABLES [facility] [place] [address] * Blood culture (07/29/2024 4:08 PM EST) Blood Culture No growth at 120 hours 08/03/2024 5:01 PM EST [facility] Blood VENOUS BLOOD SPECIMEN / Unknown Venipuncture / Unknown 07/29/2024 4:08 PM EST 07/29/2024 4:15 PM EST Jay Silverio MD MICROBIOLOGY - BLO OD ORDERABLES Performing Organization Address City/[facility] Co de Phone Number [facility] [place] [address] * Blood culture (07/29/2024 4:08 PM EST) Blood Culture No growth at 120 hours 08/03/2024 5:01 PM EST [facility] Blood VENOUS BLOOD SPECIMEN / Unknown Venipuncture / Unknown 07/29/2024 4:08 PM EST 07/29/2024 4:26 PM EST Jay Silverio MD MICROBIOLOGY - BLO OD ORDERABLES Performing Organization Address [facility] Co de Phone Number [facility] [place] [address] * XR Chest One View (07/29/2024 2:30 PM EST) WORKSTATION ID [id number] RAD Anatomical Region Laterality Modality Chest N/A [...] who have questions please contact the health rn progressive care that requested your imaging first. ? Narrative 07/29/2024 3:21 PM EST EXAMINATION: XR [...] patients who have questions please contactthe health rn progressive care that requested your imaging first. Electronically signed by: Chris Candelaria [facility]([phone]), at 07/29/2024 3:21 PM Vahe Marvin MD IMG DX ORDERABLES * (ABNORMAL) APTT (07/29/2024 2:03 PM EST) Partial Thromboplastin Time >160(HHH) 25 - 37 sec 07/29/2024 2:56 PM EST [facility] Blood VENOUS BLOOD SPECIMEN / Unknown Venipuncture / Unknown 07/29/2024 2:03 PM EST 07/29/2024 2:13 PM EST Vahe Marvin MD HEMATOLOGY ORDERABLE S Performing Organization Address City/[facility]/ZIP Co de Phone Number [facility] [place] [address] * (ABNORMAL) Prothrombin Time (07/29/2024 2:03 PM EST) Prothrombin Time 14.2(H) 9.4 - 12.5 sec 07/29/2024 2:56 PM EST [facility] International Normalization Ratio 1.3 <=4.9 07/29/2024 2:56 PM EST [facility] Comment: An INR < 2.0 [...] EST Vahe Marvin MD HEMATOLOGY ORDERABLE S Performing Organization Address City/[facility]/ZIP Co de Phone Number [facility] [place] [address] * CRP, acute inflammation (07/29/2024 2:03 PM EST) C-Reactive Protein <3.0 <=4.9 mg/L 07/29/2024 2:52 PM EST [facility] Blood VENOUS BLOOD SPECIMEN / Unknown Venipuncture / Unknown 07/29/2024 2:03 PM EST 07/29/2024 2:14 PM EST Vahe Marvin MD CHEMISTRY ORDERABLES [facility] [place] [address] * Lipid Panel (Reflex Direct LDL) (07/29/2024 2:03 PM EST) [facility] Signature Cholesterol, Total 133 mg/dL 07/29/2024 2:52 PM [facility] Comment: Desirable: < 200 mg/dL Borderline High: 200 - 239 mg/dL High: > or = 240 mg/dL Triglyceride 45 mg/dL 07/29/2024 2:52 PM [facility] Comment: Normal: <150 mg/dL Borderline High: 150-199 mg/dL High: 200-499 mg/dL Very High: > or =500 mg/dL HDL Cholesterol 58 mg/dL 2:52 PM [facility] Comment:Males: High Risk: <4 0 mg/dL LDL Cholesterol 64 mg/dL 4 2:52 PM [facility] Comment: Desirable: <100 mg/dL Above Desirable: 100-129 mg/dL Borderline High: 130-159 mg/dL High: 160-189 mg/dL Very High: > or =190 mg/dL Note: LDL calculation updated to the NIH LDL formula as of 04/15/2024 Non-HDL Cholesterol 75 mg/dL 07/29/2024 2:52 PM [facility] Comment: Desirable: <130 mg/dL Above Desirable: 130-159 mg/dL Borderline High: 160-189 mg/dL High: 190-219 mg/dL Very High: > or = 220 mg/dL Blood VENOUS BLOOD SPECIMEN / Unknown Venipuncture / Unknown 07/29/2024 2:03 PM EST 07/29/2024 2:14 PM EST Narrative [facility] - 07/29/2024 2:52 PM EST It [...] ACC/AHA Guidelines (most recently Rolf et al. [facility] 06/15/22): * For individuals with atherosclerotic cardiovascular [...] artery disease) Vahe Marvin MD CHEMISTRY ORDERABLES Performing Organization Address City/[facility]/ZIP Co de Phone Number [facility] [place] [address] * TSH [place] (07/29/2024 2:03 PM EST) Thyroid Stimulating Hormone 0.70 0.27 - 4.20 mcIU/mL 07/29/2024 2:52 PM EST [facility] Blood VENOUS BLOOD SPECIMEN / Unknown Venipuncture / Unknown 07/29/2024 2:03 PM EST 07/29/2024 2:14 PM EST Vahe Marvin MD CHEMISTRY ORDERABLES Performing Organization Address [facility] Co de Phone Number [facility] [place] [address] * Hemoglobin A1c (07/29/2024 2:03 PM EST) Hemoglobin A1c 5.3 4.3 - 5.6 % 07/29/2024 2:41 PM EST [facility] Comment: Per ADA guidelines, without [...] red blood cell turnover may not be outside sales representative insurance of glycemic control. Reference Interval: 4.3 - 5.6% 5.7 - 6.4%: Consistent with prediabetes >=6.5%: Consistent with diagnosis of diabetes mellitus Estimated Average Glucose 07/29/2024 2:41 PM EST [facility] Comment:Estimated Average Gl ucose not appropriate for patients over 70 years of age. Blood VENOUS BLOOD SPECIMEN / Unknown Venipuncture / Unknown 07/29/2024 2:03 PM EST 07/29/2024 2:14 PM EST [facility] - 07/29/2024 2:41 PM EST Estimated average glucose (eAG) is calculated from the equation described in: Quinten ALVES, Rikki J, Reno R, et al. ??Translating the A1C assay into estimated average glucose values. ??Diabetes Care 2008:31(8):4564-4543. Additional resources are available on the ADA website (diabetes.org). Vahe Marvin MD CHEMISTRY ORDERABLES [facility] [place] [address] * (ABNORMAL) CBC (with Diff) (07/29/2024 2:03 PM EST) White Blood Cell 19.50(H) 4.00 - 9.50 x10(3)/mc L 07/29/2024 2:18 PM EST [facility] Red Blood Cell 4.81 4.58 - 5.54 x10(6)/mc L 07/29/2024 2:18 PM [facility] Hemoglobin 13.1(L) 13.7 - 16.5 g/dL 07/29/2024 2:18 PM [facility] Hematocrit 40.1(L) 40.5 - 48.5 % 07/29/2024 2:18 PM [facility] Mean Cell Volume 83.4 82.9 - 93.1 fL 07/29/2024 2:18 PM [facility] Mean Cell Hemoglobin 27.2(L) 27.5 - 32.1 pg 07/29/2024 2:18 PM [facility] Mean Cell Hemoglobin Concentration 32.7 32.0 - 35.7 g/dL 07/29/2024 2:18 PM [facility] Platelet 236 145 - 357 x10(3)/mc L 07/29/2024 2:18 PM [facility] Mean Platelet Volume 10.6 7.6 - 12.9 fL 07/29/2024 2:18 PM [facility] RDW Standard Deviation 43.7 36.0 - 45.0 fL 07/29/2024 2:18 PM [facility] RDW coefficient of variation 14.3(H) 11.4 - 13.8 % 07/29/2024 2:18 PM [facility] NRBC% auto 0.0 % 07/29/2024 2:18 PM [facility] NRBC Absolute <0.01 <0.01 x10(3)/mc L 07/29/2024 2:18 PM [facility] Neutrophil % 93.6 % 07/29/2024 2:18 PM [facility] Neutrophil Absolute (ANC) - Automated 18.28(H) 1.70 - 6.10 x10(3)/mc L 07/29/2024 2:18 PM [facility] Lymph % 2.7 % 07/29/2024 2:18 PM [facility] Lymph Absolute 0.52(L) 0.90 - 3.20 x10(3)/mc L 07/29/2024 2:18 PM [facility] Monocyte % 2.9 % 07/29/2024 2:18 PM [facility] Monocyte Absolute 0.56 0.30 - 0.90 x10(3)/mc L 07/29/2024 2:18 PM [facility] Eos % 0.0 % 07/29/2024 2:18 PM [facility] Eos Absolute <0.04 0.00 - 0.40 x10(3)/mc L 07/29/2024 2:18 PM [facility] Basophil % 0.3 % 07/29/2024 2:18 PM [facility] Baso Absolute 0.05 0.00 - 0.10 x10(3)/mc L 07/29/2024 2:18 PM [facility] Immature Gran % 0.5 % 2:18 PM [facility] Immature Gran Absolute 0.09(H) 0.00 - 0.04 x10(3)/mc L 07/29/2024 2:18 PM EST [facility] Blood VENOUS BLOOD SPECIMEN / Unknown Venipuncture / Unknown 07/29/2024 2:03 PM EST 07/29/2024 2:13 PM EST Vahe Marvin MD HEMATOLOGY ORDERABLE S Performing Organization Address City/[facility]/ZIP Co de Phone Number [facility] [place] [address] * Phosphorus (07/29/2024 2:03 PM EST) Phosphorus 2.5 2.5 - 4.5 mg/dL 07/29/2024 2:52 PM EST [facility] Blood VENOUS BLOOD SPECIMEN / Unknown Venipuncture / Unknown 07/29/2024 2:03 PM EST 07/29/2024 2:14 PM EST Vahe Marvin MD CHEMISTRY ORDERABLES Performing Organization Address [facility] Co de Phone Number [facility] [place] [address] * Magnesium (07/29/2024 2:03 PM EST) Magnesium 0.70 0.69 - 1.07 mMol/L 07/29/2024 2:52 PM EST [facility] Blood VENOUS BLOOD SPECIMEN / Unknown Venipuncture / Unknown 07/29/2024 2:03 PM EST 07/29/2024 2:14 PM EST Vahe Marvin MD CHEMISTRY ORDERABLES Performing Organization Address [facility] Co de Phone Number [facility] [place] [address] * (ABNORMAL) Comprehensive metabolic panel (07/29/2024 2:03 PM EST) Glucose 243(H) 65 - 199 mg/dL 07/29/2024 3:11 PM [facility] Comment:Glucose Concentratio n >=200 mg/dL plus symptoms is consistent with Diabetes Mellitus. Blood Urea Nitrogen 13 10 - 20 mg/dL 07/29/2024 3:11 PM [facility] Creatinine 0.88 0.80 - 1.50 mg/dL 07/29/2024 3:11 PM [facility] Sodium 138 135 - 145 mMol/L 07/29/2024 3:11 PM [facility] Potassium 3.6 3.5 - 5.0 mMol/L 07/29/2024 3:11 PM [facility] Chloride 104 98 - 107 mMol/L 07/29/2024 3:11 PM [facility] Carbon Dioxide 19(L) 22 - 31 mMol/L 07/29/2024 3:11 PM [facility] Anion Gap 15 5 - 15 mMol/L 07/29/2024 3:11 PM [facility] Calcium 8.0(L) 8.5 - 10.5 mg/dL 07/29/2024 3:11 PM [facility] Protein, Total 6.0(L) 6.1 - 8.0 g/dL 07/29/2024 3:11 PM [facility] Albumin 3.6 3.2 - 5.2 g/dL 07/29/2024 3:11 PM [facility] Aspartate Aminotransferase 07/29/2024 3:11 PM [facility] Comment:Unable to report due to hemolysis. Alanine Aminotransferase 56(H) 0 - 55 unit/L 07/29/2024 3:11 PM [facility] Alkaline Phosphatase 58 40 - 130 unit/L 07/29/2024 3:11 PM [facility] Bilirubin, Total 0.5 <=1.3 mg/dL 07/29/2024 3:11 PM [facility] Est Glomerular Filtration Rate - Male 91 mL/min/1. 73 m?? 07/29/2024 3:11 PM EST [facility] Comment: This patient's estimated GFR [...] PM EST Vahe Marvin MD CHEMISTRY ORDERABLES [facility] [place] [address] * (ABNORMAL) Troponin - Single (07/29/2024 2:03 PM EST) Troponin-T, High Sensitivity >10,000(H ) <=22 ng/L 07/29/2024 2:52 PM EST [facility] Comment: This patient's troponin T [...] troponin value can be found in the [facility] Test Catalog Troponin - https://one-.testcatalog.org/catalogs/565/files/14328 Reference: Fourth Jermyn Definition of Myocardial Infarction. Journal of the [place] [employer] 2018;72:6388-6606 Blood VENOUS BLOOD SPECIMEN / Unknown Venipuncture / Unknown 07/29/2024 2:03 PM EST 07/29/2024 2:14 PM EST Vahe Marvin MD CHEMISTRY ORDERABLES [facility] [place] [address] * (ABNORMAL) Blood Gas, Venous POC (07/29/2024 2:01 PM EST) pH, Venous 7.30(L) 7.32 - 7.42 07/29/2024 2:02 PM EST [facility] PCO2, Venous 42 38 - 58 mmHg 07/29/2024 2:02 PM [facility] PO2, Venous 39 16 - 65 mmHg 07/29/2024 2:02 PM [facility] Bicarbonate, Venous 20.1(L) 22 - 31 mmol/L 07/29/2024 2:02 PM [facility] Base Excess, Venous -6.4(L) 1.9 - 4.5 mmol/L 07/29/2024 2:02 PM [facility] Hemoglobin, Venous 14.2 13.7 - 16.5 g/dL 07/29/2024 2:02 PM [facility] Oxyhemoglobin, Venous 69.3 % 07/29/2024 2:02 PM [facility] Carboxyhemoglobin , Venous 0.8 % 07/29/2024 2:02 PM [facility] Comment: Nonsmokers: 0.5-1.5% COHB ?? Smokers: Variable ??but usually less than 10% ?? Toxic: 20-30% COHB ?? Lethal: Greater than 60% COHB Methemoglobin, Venous 0.3 <=1.5 % 07/29/2024 2:02 PM EST [facility] Sodium, Venous 137 135 - 145 mmol/L 07/29/2024 2:02 PM EST [facility] Potassium, Venous 3.6 3.5 - 5.0 mmol/L 07/29/2024 2:02 PM EST [facility] Chloride, Venous 103 98 - 107 mmol/L 07/29/2024 2:02 PM EST [facility] Glucose, Venous 229(H) 65 - 199 mg/dL 07/29/2024 2:02 PM EST [facility] Comment:Glucose Concentratio n >=200 mg/dL plus symptoms is consistent with Diabetes Mellitus. Lactate, Venous 3.1(H) 0.5 - 2.2 mmol/L 07/29/2024 2:02 PM [facility] Ionized Calcium, Venous 1.11(L) 1.15 - 1.33 mmol/L 07/29/2024 2:02 PM EST [facility] Blood VENOUS BLOOD SPECIMEN / Unknown 07/29/2024 2:01 PM EST 07/29/2024 2:02 PM EST Vahe Marvin MD POINT OF CARE TEST O RDERABLES Performing Organization Address City/State/[facility] Co de Phone Number [facility] [place] [address] * CARDIAC CATHETERIZATION (07/29/2024 1:20 PM EST) Anatomical Region Laterality Modality Other Narrative 07/29/2024 2:02 PM EST ?[facility] ? Cardiac Catheterization/Intervention Report ? Patient Name: Korey Montoya. ? Procedure Date: 07/29/2024 ? A #: [id number] ? Primary Physician: Shavonne, Vahe S ? Case #: [id number] ? File Name: [id number] ? Catheterization Order Number: [id number] ? [facility] ? Final Report [place], [place] ? Patient Name: ? Korey P. Montoya ?ID#: ?[id number] ? : ?1950 ? Procedure Date: ? July 29, 2024 ?Case #: ? [id number] ? Room: ? 5 ? Case Physician: ? Vahe Marvin M.D. ? Start: ?11:46 ? Admission: ??07/29/2024 ? Referring Physician: ??Chaparro Ferrera M.D. ? Procedures: ?* Coronary Angiography ?* Left Heart Catheterization ?* Coronary Ultrasound ?* Right Heart Catheterization ?* Insertion Of Flow Directed Catheter ?* Oximetry ?* Coronary Stent Insertion ?* Vascular Closure Device Deployment ?* Venous Line / Sheath Insert ?* Percutaneous Ventricular Assist Device Insertion ?* Access Site Angiography ?* Arterial Blood Gases ?* Transthoracic Echo During Cath ?* Vascular Ultrasound ? Pre Case Status: ?These procedures were performed on an emergent basis. ? History ?Korey Montoya is a 74 year old man. He has hypertension. The ?patient's smoking status is Former. He is also status post an acute ST ?elevation myocardial infarction. Prior to the initiation of this ?procedure, the patient was designated as ASA Class IV. The CSHA clinical ?frailty scale is 4: Vulnerable. ? Diagnostic Tests: ?Electrocardiography: ? EKG was assessed by ECG. EKG was Abnormal. EKG showed ST Deviation ? >= 0.5 mm. ?Medications Prior to Procedure: ? Angiotensin II Receptor Elvis and Statin. ? Indications for Diagnostic Cath: ?The priority of the diagnostic procedure was Emergent. The indication for ?the laborer beam house visit is ACS less than or equal to 24 hrs. Chest pain ?symptom assessment was: Typical Angina. This patient had cardiovascular ?instability due to cardiogenic shock. Ventricular support was supplied ?with pharmacologic support and mechanical support with Impella: Left ?Ventricular Support Inserted after intervention has begun. ? Technique: ?A 6 SLFr sheath was inserted in the right radial artery utilizing the ?Seldinger technique. A 9Fr sheath was inserted in the right femoral vein ?utilizing the Seldinger technique. A 12Fr sheath was inserted in the ?right femoral artery utilizing the Seldinger technique. The left coronary ?artery was injected utilizing a 6Fr EBU 3.5 catheter. A 5Fr TIG 4.0 ?catheter was used to inject the right coronary artery. Left atrial ?pressure was performed with a 5Fr TIG 4.0 catheter. Aortic Root was ?performed with a 5Fr TIG 4.0 catheter. Right heart catheterization was ?performed utilizing a 6Fr BALLOON WEDGE catheter. Coronary stent ?insertion was performed and the equipment utilized will be described in ?the intervention summary section. 5,000 units of heparin were ?administered. A total of 100cc of Omnipaque were opened, 86cc of ?Omnipaque were administered and 14cc of Omnipaque were wasted. Radiation: ?Fluoro time was 12.5 minutes, dose area product was 20.00 Gy/cm2 and air ?kerma was 197 mGY. See the case log for additional details. ?The patient received the following medications prior to and during the ?procedure: ? Unfractionated Heparin and Clopidogrel. ? Hemodynamics: ?Right Heart Pressures ? Resting: ? Syst Diast ? EDP ?a ?v ? m ?RA ? 18 ?20 ?16 ?RV 52 ?17 ?PA 45 ?20 ?33 ?PCW ?28 ?40 ?27 ? Hemodynamic Profile: ?Profile 1 ?CO ? 3.36 ?CI ? 1.95 ?TSR ? 1,810 ?SVR ? 1,429 ?TPR ?786 ?PVR ?143 ?Technique ?Estimated Thomas ?Left Heart Pressures ? Resting: ? Syst Diast ? EDP ?a ?v ? m ?Ao 99 ?58 ?76 ?LA ? 31 ?29 ?17 ? Hemodynamics After impella: ?Right Heart Pressures ? Post Intervention: ? Syst Diast ? EDP ?a ?v ? m ?RA ? 15 ?14 ?11 ?RV 54 ?14 ?PA 40 ?13 ?22 ?PCW ?31 ?27 ?22 ? Hemodynamic Profile: ?Profile 1 ?CO ? 4.76 ?CI ? 2.77 ?TSR ? 1,244 ?SVR ? 1,059 ?TPR ?370 ?Technique ?Estimated Thomas ?Left Heart Pressures ? Post Intervention: ? Syst Diast ? EDP ?a ?v ? m ?Ao 99 ?54 ?74 ? Oximetry: ?Location ? %Sat ?Location ?%Sat ?Main Pulmonary Artery ??65.0 ?Peripheral Arterial ? 99.0 ? Coronary Angiography: ?Dominance: Right ?Left Main ? The left main was normal, free of disease. ?Left Anterior Descending ? There was a single discrete total occlusion of the proximal segment ? of the left anterior descending artery (LAD). ?Left Circumflex ? The left circumflex (LCX) was normal, free of disease. ?Right Coronary Artery ? The right coronary artery (RCA) was normal, free of disease. ? Intravascular Imaging/Physiology: ?Intravascular Ultrasound was performed in the proximal LAD using a 6 Fr ?EBU 3.5 guiding catheter and a 3.[address] ??20 Mhz using ?Manual pullback. ??Imaging was successful. ??Image quality was excellent. ?Indication: IVUS performed for pre intervention planning and post ?intervention assessment. ?IVUS performed after vessel manipulation. ?Findings Pre-Intervention: diffuse plaque. ?Findings Post-Intervention: The stent was well expanded and apposed. ?Conclusions: stent/intervention appears optimized. ? Indication for Intervention: ?Coronary intervention was indicated for primary therapy for an acute ?myocardial infarction. The priority for the procedure was Emergent. The ?NCDR indication for the procedure was STEMI-Immediate PCI for Acute ?STEMI. STEMI onset was 07/29/2024. LVEF within one week was 20%. ?Cardiopulmonary support was initiated for cardiogenic shock - post PCI ?and Right Heart catheterization was initiated for Cardiomyopathy, ?unspecified (I42.9). ? Intervention Summary: ?Left Anterior Descending Artery ? Proximal 100% ? Stent insertion was performed on the total occlusion in the ? proximal segment of the LAD. This was a de merlene lesion. ? According to the ACC/AHA classification system, this lesion ? was a type C high risk lesion. Primary prevention of ? restenosis was the indication for stent insertion. This was ? the culprit lesion. A guidewire was placed across this lesion. ? Vessel flow pre intervention was LIZ 0. Lesion length was ? 30mm. ? Stent insertion was accomplished through a 6 Fr. EBU 3.5 ? guide. ??The lesion was predilated with a 2.00mm EUPHORA 15 MM ? balloon with a maximum inflation pressure of 12 atmospheres. ? A premounted 3.00 x 22 mm [place] (LOW) was deployed ? with a maximum inflation pressure of 14 atmospheres. ? Following stent deployment, the lesion was dilated using a ? 3.50mm NC EUPHORA 20 MM balloon with a maximum inflation ? pressure of 16 atmospheres. ? Another stent insertion was accomplished through a 6 Fr. EBU ? 3.5 guide. ??The lesion was predilated with a 2.00mm EUPHORA 15 ? MM balloon with a maximum inflation pressure of 12 ? atmospheres. ??A premounted 3.00 x 08 mm Reese La Salle (LOW) ? was deployed with a maximum inflation pressure of 14 ? atmospheres. ??Following stent deployment, the lesion was ? dilated using a 3.50mm NC EUPHORA 20 MM balloon with a maximum ? inflation pressure of 16 atmospheres. ? The final outcome was defined as successful. There was no ? residual stenosis following this intervention. The final LIZ ? flow was 3. ? Vascular Access: ?Vascular Access Angiogram: ? A selective angiogram at the right femoral artery revealed mild ? diffuse disease. ?Vascular Ultrasound: ? Ultrasound of the right femoral artery was used to guide access and ? showed vessel patent with mild disease. ?Vascular Access Management: ? Mechanical Compression of the right radial artery access site was ? performed. ? The right femoral artery access was secured in place for monitoring, ? staged procedure or therapy. ? The right femoral vein access was secured in place for monitoring, ? staged procedure or therapy. ? Point of Care Testing: ?ABG: ? Arterial Blood gasses were performed using the I-Stat analyzer at ? 12:12: pH: 7.26, pCO2: 43.3, pO2: 131.0, sPO2: 99%, HCO3: 19 on ? FIO2: RA. ? Arterial Blood gasses were performed using the I-Stat analyzer at ? 12:46: pH: 7.33, pCO2: 38.0, pO2: 94.0, sPO2: 97%, HCO3: 19 on FIO2: ? RA. ?I-Stat: ? I-Stat was performed using the I-Stat analyzer at 12:12: Na+: 135, ? K+: 3.8, iCa++: 1.14, Hct: 36%, Hb: 12.2. ? I-Stat was performed using the I-Stat analyzer at 12:46: Na+: 139, ? K+: 3.4, iCa++: 1.13, Hct: 39%, Hb: 13.3. ? Dual Antiplatelet (DAPT) Recommendations: ?Drug eluting stent (LOW) inserted. ?P2Y12 Loading dose administered prior to arrival in the laborer beam house. ?Recommended anti-platelet/anti-thrombotic regimen: ?Start aspirin 81 mg daily now and continue for 12 months then stop. ?Start clopidogrel 75 mg daily now and continue for indefinitely. ?These recommendations are made at the time of the intervention. Patient ?and provider preferences or a changing clinical situation may require ?modification of this regimen. Consult [facility] for ?questions. ?The 1 year bleeding risk as calculated by the PRECISE DAPT score is High ?risk. ?This patient may be at high bleeding risk. In patients treated with DAPT ?after coronary stent implantation who develop a high risk of bleeding, or ?are at high risk of severe bleeding complication, or develop significant ?overt bleeding, discontinuation of P2Y12 inhibitor therapy after 3 months ?for stable ischemic heart disease (SIHD) or after 6 months for acute ?coronary syndrome (ACS) may be reasonable. ? Conclusions: ?* One vessel coronary artery disease (LAD) ?* Mild pulmonary hypertension ?* Elevated pulmonary capillary wedge pressure ?* Successful stent insertion of the proximal LAD lesion ?* See Dual Antiplatelet (DAPT) Recommendations above ?* Successful impella placement for cardiogenic shock. ? Post Procedure Fluid Recommendations: ?IV fluid at 189 mL/hr for 4 hours for a total of 756 mL. These ?recommendations are made at the time of the procedure. Patient and ?provider preferences or a changing clinical situation may require ?modification of this regimen. ? Comments: ?Patient presented with an anterolateral STEMI and was initially ?hypotensive, but stable after a fluid bolus prior to arrival. FOllowing ?PCI of the lesion, he developed cardiogenic shock with MAP's in the 40s ?and diminished pulse pressure. RHC was done showing markedly elevated ?biventricular filling pressures, pulmonary HTN (group 2) and low CO/CI ?(3.3/1.9). Inotropes and vasopressors were uptitrated (norepinephrine ?30mcg/min, epineprine 10mcg/kg/min and vasopressin 0.04 units/min). An ?impella CP was placed emergently, however he continued to develop NSVT ?and remained hypotensive. TTE showed an EF of 20%, shallow impella ?position (limited due to VT), but with inflow cannula across the AV, ?normal RV function and no mechanical complications. Cardiac surgery and ?heart failure were contacted to discuss escalation to Ecpella, however ?after 5-10 minutes he had begun to significantly improve and we were able ?to start weaning his inotropes/vasopressors. A Thornton Colette catheter was ?placed demonstrating improvement in his hemodynamics and the impella site ?was perclosed and hemostatic gauze was applied with excellent result. ?WIll transfer to the CVCC for further management. ?The attending physician was present for the entire procedure. ?Dr. Vahe Marvin M.D. was present during the moderate sedation ?intraservice time as documented by the sedation nurse. ??Case time = 01:26. ?Dr. Vahe Marvin M.D. performed the coronary angiography, left heart ?catheterization, IVUS # coronary, stent insertion-coronary, oximetry, ABG, ?transthoracic echo , ventricular assist device insertion, right heart ?catheterization, Thornton (flow directed cath) insertion, access site ?angiography, vascular ultrasound, venous line / sheath insert and vascular ?closure device. ? Vahe Marvin M.D. ? Electronically Signed by: Vahe Marvin M.D. ? Report Finalized: 07/29/2024 ??13:55 ? Report Last Ammended: 07/30/2024 ??10:15 ? Procedure Note Vahe Marvin MD - 07/30/2024 [facility] Cardiac Catheterization/Intervention Report Patient Name: Korey MontoyaToby Procedure Date: 07/29/2024 A #: [id number] Primary Physician: Vahe Marvin Case #: [id number] File Name: [id number] Catheterization Order Number: [id number] [facility] FinalReport [place], [place] Patient Name: Korey Montoya ID#:[id number] :1950 Procedure Date: July 29, 2024 Case #: [id number] Room: 5 Case Physician: Vahe Marvin M.D. Start: 11:46 Admission:07/29/2024 Referring Physician: Chaparro Ferrera M.D. Procedures: * Coronary Angiography * Left Heart Catheterization * Coronary Ultrasound * Right Heart Catheterization * Insertion Of Flow Directed Catheter * Oximetry * Coronary Stent Insertion * Vascular Closure Device Deployment * Venous Line / Sheath Insert * Percutaneous Ventricular Assist Device Insertion * Access Site Angiography * Arterial Blood Gases * Transthoracic Echo During Cath * Vascular Ultrasound Pre Case Status: These procedures were performed on an emergent basis. History Korey Montoya is a 74 year old man. He has hypertension. The patient's smoking status is Former. He is also status post an acuteST elevation myocardial infarction. Prior to the initiation of this procedure, the patient was designated as ASA Class IV. The CSHAclinical frailty scale is 4: Vulnerable. Diagnostic Tests: Electrocardiography: EKG was assessed by ECG. EKG was Abnormal. EKG showed STDeviation >= 0.5 mm. Medications Prior to Procedure: Angiotensin II Receptor Elvis and Statin. Indications for Diagnostic Cath: The priority of the diagnostic procedure was Emergent. Theindication for the laborer beam house visit is ACS less than or equal to 24 hrs. Chest pain symptom assessment was: Typical Angina. This patient hadcardiovascular instability due to cardiogenic shock. Ventricular support wassupplied with pharmacologic support and mechanical support with Impella: Left Ventricular Support Inserted after intervention has begun. Technique: A 6 SLFr sheath was inserted in the right radial artery utilizingthe Seldinger technique. A 9Fr sheath was inserted in the right femoralvein utilizing the Seldinger technique. A 12Fr sheath was inserted in the right femoral artery utilizing the Seldinger technique. The leftcoronary artery was injected utilizing a 6Fr EBU 3.5 catheter. A 5Fr TIG 4.0 catheter was used to inject the right coronary artery. Left atrial pressure was performed with a 5Fr TIG 4.0 catheter. Aortic Root was performed with a 5Fr TIG 4.0 catheter. Right heart catheterizationwas performed utilizing a 6Fr BALLOON WEDGE catheter. Coronary stent insertion was performed and the equipment utilized will be describedin the intervention summary section. 5,000 units of heparin were administered. A total of 100cc of Omnipaque were opened, 86cc of Omnipaque were administered and 14cc of Omnipaque were wasted.Radiation: Fluoro time was 12.5 minutes, dose area product was 20.00 Gy/cm2 andair kerma was 197 mGY. See the case log for additional details. The patient received the following medications prior to and duringthe procedure: Unfractionated Heparin and Clopidogrel. Hemodynamics: Right Heart Pressures Resting: Syst Diast EDP a v m RA 18 20 16 RV 52 17 PA 45 20 33 PCW 28 40 27 Hemodynamic Profile: Profile 1 CO 3.36 CI 1.95 TSR 1,810 SVR 1,429 TPR 786 PVR 143 Technique Estimated Thomas Left Heart Pressures Resting: Syst Diast EDP a v m Ao 99 58 76 LA 31 29 17 Hemodynamics After impella: Right Heart Pressures Post Intervention: Syst Diast EDP a v m RA 15 14 11 RV 54 14 PA 40 13 22 PCW 31 27 22 Hemodynamic Profile: Profile 1 CO 4.76 CI 2.77 TSR 1,244 SVR 1,059 TPR 370 Technique Estimated Thomas Left Heart Pressures Post Intervention: Syst Diast EDP a v m Ao 99 54 74 Oximetry: Location %Sat Location %Sat Main Pulmonary Artery 65.0 Peripheral Arterial 99.0 Coronary Angiography: Dominance: Right Left Main The left main was normal, free of disease. Left Anterior Descending There was a single discrete total occlusion of the proximalsegment of the left anterior descending artery (LAD). Left Circumflex The left circumflex (LCX) was normal, free of disease. Right Coronary Artery The right coronary artery (RCA) was normal, free of disease. Intravascular Imaging/Physiology: Intravascular Ultrasound was performed in the proximal LAD using a 6Fr EBU 3.5 guiding catheter and a 3.[address] 20 Mhzusing Manual pullback. Imaging was successful. Image quality wasexcellent. Indication: IVUS performed for pre intervention planning and post intervention assessment. IVUS performed after vessel manipulation. Findings Pre-Intervention: diffuse plaque. Findings Post-Intervention: The stent was well expanded and apposed. Conclusions: stent/intervention appears optimized. Indication for Intervention: Coronary intervention was indicated for primary therapy for an acute myocardial infarction. The priority for the procedure was Emergent.[facility] was [facility]I-Immediate PCI for Acute STEMI. STEMI onset was 07/29/2024. LVEF within one week was 20%. Cardiopulmonary support was initiated for cardiogenic shock - postPCI and Right Heart catheterization was initiated for Cardiomyopathy, unspecified (I42.9). Intervention Summary: Left Anterior Descending Artery Proximal 100% Stent insertion was performed on the total occlusion inthe proximal segment of the LAD. This was a de merlene lesion. According to the ACC/AHA classification system, thislesion was a type C high risk lesion. Primary prevention of restenosis was the indication for stent insertion. Thiswas the culprit lesion. A guidewire was placed across thislesion. Vessel flow pre intervention was LIZ 0. Lesion lengthwas 30mm. Stent insertion was accomplished through a 6 Fr. EBU 3.5 guide. The lesion was predilated with a 2.00mm [id number] MM balloon with a maximum inflation pressure of 12atmospheres. A premounted 3.00 x 22 mm Reese La Salle (LOW) wasdeployed with a maximum inflation pressure of 14 atmospheres. Following stent deployment, the lesion was dilated usinga 3.50mm NC EUPHORA 20 MM balloon with a maximum inflation pressure of 16 atmospheres. Another stent insertion was accomplished through a 6 Fr.EBU 3.5 guide. The lesion was predilated with a 2.00mmEUPHORA 15 MM balloon with a maximum inflation pressure of 12 atmospheres. A premounted 3.00 x 08 mm Reese La Salle(LOW) was deployed with a maximum inflation pressure of 14 atmospheres. Following stent deployment, the lesion was dilated using a 3.50mm NC EUPHORA 20 MM balloon with amaximum inflation pressure of 16 atmospheres. The final outcome was defined as successful. There was no residual stenosis following this intervention. The finalTIMI flow was 3. Vascular Access: Vascular Access Angiogram: A selective angiogram at the right femoral artery revealed mild diffuse disease. Vascular Ultrasound: Ultrasound of the right femoral artery was used to guide accessand showed vessel patent with mild disease. Vascular Access Management: Mechanical Compression of the right radial artery access sitewas performed. The right femoral artery access was secured in place formonitoring, staged procedure or therapy. The right femoral vein access was secured in place formonitoring, staged procedure or therapy. Point of Care Testing: ABG: Arterial Blood gasses were performed using the I-Stat analyzerat 12:12: pH: 7.26, pCO2: 43.3, pO2: 131.0, sPO2: 99%, HCO3: 19 on FIO2: RA. Arterial Blood gasses were performed using the I-Stat analyzerat 12:46: pH: 7.33, pCO2: 38.0, pO2: 94.0, sPO2: 97%, HCO3: 19 onFIO2: RA. I-Stat: I-Stat was performed using the I-Stat analyzer at 12:12: Na+:135, K+: 3.8, iCa++: 1.14, Hct: 36%, Hb: 12.2. I-Stat was performed using the I-Stat analyzer at 12:46: Na+:139, K+: 3.4, iCa++: 1.13, Hct: 39%, Hb: 13.3. Dual Antiplatelet (DAPT) Recommendations: Drug eluting stent (LOW) inserted. P2Y12 Loading dose administered prior to arrival in the laborer beam house. Recommended anti-platelet/anti-thrombotic regimen: Start aspirin 81 mg daily now and continue for 12 months then stop. Start clopidogrel 75 mg daily now and continue for indefinitely. These recommendations are made at the time of the intervention.Patient and provider preferences or a changing clinical situation mayrequire modification of this regimen. Consult [facility] questions. The 1 year bleeding risk as calculated by the PRECISE DAPT score isHigh risk. This patient may be at high bleeding risk. In patients treated withDAPT after coronary stent implantation who develop a high risk ofbleeding, or are at high risk of severe bleeding complication, or developsignificant overt bleeding, discontinuation of P2Y12 inhibitor therapy after 3months for stable ischemic heart disease (SIHD) or after 6 months for acute coronary syndrome (ACS) may be reasonable. Conclusions: * One vessel coronary artery disease (LAD) * Mild pulmonary hypertension * Elevated pulmonary capillary wedge pressure * Successful stent insertion of the proximal LAD lesion * See Dual Antiplatelet (DAPT) Recommendations above * Successful impella placement for cardiogenic shock. Post Procedure Fluid Recommendations: IV fluid at 189 mL/hr for 4 hours for a total of 756 mL. These recommendations are made at the time of the procedure. Patient and provider preferences or a changing clinical situation may require modification of this regimen. Comments: Patient presented with an anterolateral STEMI and was initially hypotensive, but stable after a fluid bolus prior to arrival.FOllowing PCI of the lesion, he developed cardiogenic shock with MAP's in the40s and diminished pulse pressure. RHC was done showing markedlyelevated biventricular filling pressures, pulmonary HTN (group 2) and lowCO/CI (3.3/1.9). Inotropes and vasopressors were uptitrated(norepinephrine 30mcg/min, epineprine 10mcg/kg/min and vasopressin 0.04 units/min).An impella CP was placed emergently, however he continued to developNSVT and remained hypotensive. TTE showed an EF of 20%, shallow impella position (limited due to VT), but with inflow cannula across the AV, normal RV function and no mechanical complications. Cardiac surgeryand heart failure were contacted to discuss escalation to Ecpella,however after 5-10 minutes he had begun to significantly improve and we wereable to start weaning his inotropes/vasopressors. A Thornton Colette catheterwas placed demonstrating improvement in his hemodynamics and the impellasite was perclosed and hemostatic gauze was applied with excellentresult. WIll transfer to the CVCC for further management. The attending physician was present for the entire procedure. Dr. Vahe Marvin M.D. was present during the moderate sedation intraservice time as documented by the sedation nurse. Case time =01:26. Dr. Vahe Marvin M.D. performed the coronary angiography, leftheart catheterization, IVUS # coronary, stent insertion-coronary, oximetry,ABG, transthoracic echo , ventricular assist device insertion, right heart catheterization, Thornton (flow directed cath) insertion, access site angiography, vascular ultrasound, venous line / sheath insert andvascular closure device. Vahe Marvin M.D. Electronically Signed by: Vahe Marvin M.D. Report Finalized: 07/29/2024 13:55 Report Last Ammended: 07/30/2024 10:15 Vahe Marvin MD CARDIAC CATH ORDERAB LES * (ABNORMAL) BLOOD GAS, POC (07/29/2024 12:46 PM EST) Sodium, POC 139 135 - 145 mmol/L 07/30/2024 7:30 AM [facility] Potassium, POC 3.4(L) 3.5 - 5.0 mmol/L 07/30/2024 7:30 AM [facility] pH, POC 7.33(L) 7.35 - 7.45 07/30/2024 7:30 AM [facility] Ionized Calcium, POC 1.13(L) 1.15 - 1.33 mmol/L 07/30/2024 7:30 AM [facility] pCO2, POC 38 35 - 45 mmHg 07/30/2024 7:30 AM [facility] pO2, POC 94 85 - 104 mmHg 07/30/2024 7:30 AM [facility] Base Excess, POC -6.0(L) -3.0 - 3.0 mmol/L 07/30/2024 7:30 AM [facility] Hematocrit, POC 39.0(L) 40.5 - 48.5 %PCV 07/30/2024 7:30 AM [facility] Hemoglobin, POC 13.3(L) 13.7 - 16.5 g/dL 07/30/2024 7:30 AM [facility] Comment:The calculation of h emoglobin from hematocrit assumes a normal MCHC. Bicarbonate, POC 19.8(L) 20.0 - 26.0 mmol/L 07/30/2024 7:30 AM [facility] Carbon Dioxide, POC 21(L) 22 - 31 mmol/L 07/30/2024 7:30 AM [facility] Blood VENOUS BLOOD SPECIMEN / Unknown 07/29/2024 12:46 PM EST 07/30/2024 7:30 AM EST Vahe Marvin MD POINT OF CARE TEST O RDERABLES [facility] [place] [address] * (ABNORMAL) BLOOD GAS, POC (07/29/2024 12:12 PM EST) Sodium, POC 135 135 - 145 mmol/L 07/30/2024 7:30 AM [facility] Potassium, POC 3.8 3.5 - 5.0 mmol/L 07/30/2024 7:30 AM [facility] pH, POC 7.27(LLL) 7.35 - 7.45 07/30/2024 7:30 AM [facility] Ionized Calcium, POC 1.14(L) 1.15 - 1.33 mmol/L 07/30/2024 7:30 AM [facility] pCO2, POC 43 35 - 45 mmHg 07/30/2024 7:30 AM [facility] pO2, POC 131(H) 85 - 104 mmHg 07/30/2024 7:30 AM [facility] Base Excess, POC -7.0(L) -3.0 - 3.0 mmol/L 07/30/2024 7:30 AM [facility] Hematocrit, POC 36.0(L) 40.5 - 48.5 %PCV 07/30/2024 7:30 AM [facility] Hemoglobin, POC 12.2(L) 13.7 - 16.5 g/dL 07/30/2024 7:30 AM [facility] Comment:The calculation of h emoglobin from hematocrit assumes a normal MCHC. Bicarbonate, POC 19.7(L) 20.0 - 26.0 mmol/L 07/30/2024 7:30 AM [facility] Carbon Dioxide, POC 21(L) 22 - 31 mmol/L 07/30/2024 7:30 AM [facility] Blood VENOUS BLOOD SPECIMEN / Unknown 07/29/2024 12:12 PM EST 07/30/2024 7:30 AM EST Vahe Marvin MD POINT OF CARE TEST O RDERABLES [facility] [place] [address] documented in this encounter Visit Diagnoses Diagnosis STEMI (ST elevation myocardial infarction)- Primary Acute myocardial infarction, unspecified site, episode of care unspecified ST elevation myocardial infarction involving left anterior descending (LAD) coronary artery HFrEF (heart failure with reduced ejection fraction) documented in this encounter Admitting Diagnoses Diagnosis STEMI (ST elevation myocardial infarction) Acute myocardial infarction, unspecified site, episode of care unspecified documented in this encounter Administered Medications Inactive Administered Medications - up to 3 most recent administrations Medication Order MAR Action Action Date Dose Rate Site acetaminophen (Tylenol) tablet 650 mg 650 mg, Oral, EVERY 4 HOURS PRN, Starting on 07/30/24 at 0732, Until 08/04/24 at 1832, Pain, - Maximum dose of acetaminophen is 4,000 mg from all sources in 24 hours. - Unless otherwise specified, when ordered PRN for pain, acetaminophen should be given first if other PRN pain medications are ordered., Routine Given 07/31/2024 1:53 PM EST 650 mg Given 07/30/2024 8:13 PM EST 650 mg Given 07/30/2024 8:14 AM EST 650 mg albumin (human) 5% 250 mL intravenous solution 12.5 g, Intravenous, ONCE, 1 dose, On 07/29/24 at 1500, 1 bottle (unit) = 12.5 grams / 250 mL (Total Dose = 25 grams = 2 bottles), Routine New Bag 07/29/2024 2:49 PM EST 12.5 g albumin (human) 5% 250 mL intravenous solution 12.5 g, Intravenous, ONCE, 1 dose, On 07/29/24 at 1530, 1 bottle (unit) = 12.5 grams / 250 mL (Total Dose = 12.5 grams = 1 bottle), STAT New Bag 07/29/2024 3:36 PM EST 12.5 g AMIOdarone (Nexterone) (1.8 mg/mL) in dextrose (iso-osmotic) infusion CONTINUOUS PRN, Starting on Tue07/29/24 at 1239, Until Tue07/30/24 at 1306, Intra-Operative (Intra-Procedure) Rate/Dose Verify 07/29/2024 2:00 PM EST 33.3 mL/hr New Bag 07/29/2024 12:39 PM EST 1 mg/min 33.3 mL/hr AMIOdarone (Nexterone) (1.8 mg/mL) in dextrose (iso-osmotic) infusion 0.5 mg/min (16.6667 mL/hr, rounded to 16.7 mL/hr), Intravenous, CONTINUOUS, Starting on Tue07/29/24 at 1515, Until Tue08/01/24 at 1028, At 24 hours from start time, call MD regarding continuing infusion or change to oral dosing Use in-line filter Rotate IV site every 12 hours to prevent phlebitis Warning Vesicant/Irritant Medication Rate/Dose Verify 08/01/2024 8:00 AM EST 0.5 mg/min 16.7 mL/hr New Bag 08/01/2024 6:41 AM EST 0.5 mg/min 16.7 mL/hr Rate/Dose Verify 08/01/2024 6:00 AM EST 0.5 mg/min 16.7 mL /hr AMIOdarone (Nexterone) 1.8 mg/mL infusion 1 dose, Starting on Tue07/29/24 at 1452, Until Tue07/29/24 at 1533, [place].: haylie override aspirin EC tablet 81 mg 81 mg, Oral, DAILY, First dose on Tue07/30/24 at 0900, Until Discontinued, Recovery (Recovery-Hospital Unit), Routine Given 08/04/2024 9:34 AM EST 81 mg Given 08/03/2024 8:45 AM EST 81 mg Given 08/02/2024 9:00 AM EST 81 mg atorvastatin (Lipitor) tablet 80 mg 80 mg, Oral, EVERY EVENING, First dose on Tue07/29/24 at 1700, Until Discontinued, Routine Given 08/04/2024 4:2 3 PM EST 80 mg Given 08/02/2024 4:43 PM EST 80 mg Given 08/01/2024 4:56 PM EST 80 mg calcium gluconate 1g in sodium chloride 0.9% 50mL 1 g, Intravenous, ONCE, 1 dose, On Tue07/29/24 at 1600, Administer over 60 Minutes, Warning Vesicant/Irritant Medication New Bag 07/29/2024 3:56 PM EST 1 g 50 mL/hr calcium gluconate 1g in sodium chloride 0.9% 50mL 1 g, Intravenous, ONCE, 1 dose, On Tue07/30/24 at 0645, Administer over 60 Minutes, Warning Vesicant/Irritant Medication New Bag 07/30/2024 6:26 AM EST 1 g 50 mL/hr clopidogreL (Plavix) tablet 75 mg 75 mg, Oral, DAILY, First dose on Tue07/30/24 at 0900, Until Discontinued, Routine Given 08/04/2024 9:34 AM EST 75 mg Given 08/03/2024 8:45 AM EST 75 mg Given 08/02/2024 8:47 AM EST 75 mg dextrose 5% 1,000 mL with sodium bicarbonate 25 mEq infusion at 12 mL/hr, Intravenous, CONTINUOUS, Starting on Tue07/29/24 at 1515, Until Tue08/01/24 at 1047, For use with IMPELLA device Rate/Dose Verify 08/01/2024 6:00 AM EST 12 mL/hr Rate/Dose Verify 08/01/2024 4:00 AM EST 12 mL/h r Rate/Dose Verify 08/01/2024 2:00 AM EST 12 mL/h r dextrose 50% intravenous solution 25 g 25 g, Intravenous, EVERY 15 MIN PRN, Starting on Tue07/29/24 at 1415, Until 08/04/24 at 1832, Low blood sugar, ??Oral treatment preferred For Blood Glucose 50 to 70 mg/dL: ?? -??IF ABLE TO DRINK, give 120 mL juice or regular (not diet) soda - IF NPO, give 15 gram glucose 40% oral gel massaged into buccal mucosa - IF UNCONSCIOUS OR UNCOOPERATIVE, give 25 gram dextrose IV - IF NO IV ACCESS, give 1 mg glucagon IM. For Blood Glucose LESS than 50 mg/dL: ?? -??IF ABLE TO DRINK, give 240 mL juice or regular (not diet) soda - IF NPO, give 30 gram glucose 40% oral gel massaged into buccal mucosa - IF UNCONSCIOUS OR UNCOOPERATIVE, give 25 gram dextrose IV - IF NO IV ACCESS, 1 mg glucagon IM. Recheck BG in 15 minutes. May repeat juice/soda, gel, dextrose or glucagon once per episode. Notify provider if hypoglycemia does not resolve after two treatments. Providers should consider the following: administering longer-acting treatments for the duration of active insulin or hypoglycemia agent for persistent hypoglycemia and re-evaluating active insulin orders before administering the next dose. Warning Vesicant/Irritant Medication , Routine diphenhydrAMINE (Benadryl) (50 mg/mL) injection 25 mg 25 mg, Intravenous, ONCE, 1 dose, On Tue07/30/24 at 0100, Routine Given 07/30/2024 12:34 AM EST 25 mg DOBUTamine (Dobutrex) (4,000 mcg/mL) in dextrose 5% 250 mL infusion 2.5 mcg/kg/min ? 64.1 kg (2.4038 mL/hr, rounded to 2.4 mL/hr), Intravenous, CONTINUOUS, Starting on Tue07/30/24 at 0245, Until Tue08/01/24 at 1028, All adjustments must be ordered by the prescriber Do not exceed 20 mcg/kg/minute. Warning Vesicant/Irritant Medication Concentration 4000 mcg/mL. Warning Vesicant/Irritant Medication Rate/Dose Verify 08/01/2024 6:00 AM EST 2.5 mcg/kg/min 2.4 mL/hr Rate/Dose Verify 08/01/2024 4:00 AM EST 2.5 mcg/kg/min 2.4 mL/hr Rate/Dose Verify 08/01/2024 2:00 AM EST 2.5 mcg/kg/min 2.4 mL/hr empagliflozin (Jardiance) tablet 10 mg 10 mg, Oral, DAILY, First dose on Tue08/03/24 at 1100, Until Discontinued, This medication should not be given with reduced PO intake/fluid loss, severe illness, or in patients with ketonemia or ketouria., Routine, This medication should be held for 3 days prior to surgery. Is there a planned procedure within 3 days? No, Indication for empagliflozin: heart failure (HFpEF or HFrEF), Is this a new initiation for patients with heart failure (HFpEF or HFrEF) with or without diabetes? Yes Given 08/04/2024 9:34 AM EST 10 mg Given 08/03/2024 12:42 PM EST 10 mg enoxaparin (Lovenox) (40 mg/0.4 mL) subcutaneous injection 40 mg 40 mg, Subcutaneous, NIGHTLY, First dose on Tue08/01/24 at 2100, Until Discontinued, Routine Given 08/03/2024 10:03 PM EST 40 mg Given 08/02/2024 8:25 PM EST 40 mg Given 08/01/2024 8:26 PM EST 40 mg EPINEPHrine (Adrenalin) (8 mcg/mL) in dextrose 5% 250 mL infusion CONTINUOUS PRN, Starting on Tue07/29/24 at 1201, Until 07/29/24 at 1607, Intra-Operative (Intra-Procedure) Rate/Dose Verify 07/29/2024 2:00 PM EST 15 mL/hr Rate/Dose Change 07/29/2024 1:09 PM EST 2 mcg/min 15 mL/h r Rate/Dose Change 07/29/2024 12:56 PM EST 5 mcg/min 37.5 m L/hr furosemide (Lasix) (10 mg/mL) injection 20 mg 20 mg, Intravenous, ONCE, 1 dose, On Tue08/01/24 at 1100 Given 08/01/2024 12:34 PM EST 20 mg furosemide (Lasix) (10 mg/mL) injection 40 mg 40 mg, Intravenous, ONCE, 1 dose, On Tue07/30/24 at 0930 Given 07/30/2024 9:57 AM EST 40 mg glucagon (Glucagen) (1 mg/mL) injection solution 1 mg 1 mg, Intramuscular, EVERY 15 MIN PRN, Starting on Tue07/29/24 at 1415, Until 08/04/24 at 1832, Low blood sugar, ??Oral treatment preferred For Blood Glucose 50 to 70 mg/dL: ?? -??IF ABLE TO DRINK, give 120 mL juice or regular (not diet) soda - IF NPO, give 15 gram glucose 40% oral gel massaged into buccal mucosa - IF UNCONSCIOUS OR UNCOOPERATIVE, give 25 gram dextrose IV - IF NO IV ACCESS, give 1 mg glucagon IM. For Blood Glucose LESS than 50 mg/dL: ?? -??IF ABLE TO DRINK, give 240 mL juice or regular (not diet) soda - IF NPO, give 30 gram glucose 40% oral gel massaged into buccal mucosa - IF UNCONSCIOUS OR UNCOOPERATIVE, give 25 gram dextrose IV - IF NO IV ACCESS, 1 mg glucagon IM. Recheck BG in 15 minutes. May repeat juice/soda, gel, dextrose or glucagon once per episode. Notify provider if hypoglycemia does not resolve after two treatments. Providers should consider the following: administering longer-acting treatments for the duration of active insulin or hypoglycemia agent for persistent hypoglycemia and re-evaluating active insulin orders before administering the next dose., Routine glucose (Glutose) 40% oral geL 15-30 g of glucose, Buccal, EVERY 15 MIN PRN, Starting on 07/29/24 at 1415, Until 08/04/24 at 1832, Low blood sugar, ??Oral treatment preferred For Blood Glucose 50 to 70 mg/dL: ?? -??IF ABLE TO DRINK, give 120 mL juice or regular (not diet) soda - IF NPO, give 15 gram glucose 40% oral gel massaged into buccal mucosa - IF UNCONSCIOUS OR UNCOOPERATIVE, give 25 gram dextrose IV - IF NO IV ACCESS, give 1 mg glucagon IM. For Blood Glucose LESS than 50 mg/dL: ?? -??IF ABLE TO DRINK, give 240 mL juice or regular (not diet) soda - IF NPO, give 30 gram glucose 40% oral gel massaged into buccal mucosa - IF UNCONSCIOUS OR UNCOOPERATIVE, give 25 gram dextrose IV - IF NO IV ACCESS, 1 mg glucagon IM. Recheck BG in 15 minutes. May repeat juice/soda, gel, dextrose or glucagon once per episode. Notify provider if hypoglycemia does not resolve after two treatments. Providers should consider the following: administering longer-acting treatments for the duration of active insulin or hypoglycemia agent for persistent hypoglycemia and re-evaluating active insulin orders before administering the next dose. 1 tube of Glutose-15 contains 15 grams of glucose (net weight of tube = 37.5 grams.), Routine heparin (porcine) 50 units/mL in dextrose 5% 500 mL infusion 5-30 Units/kg/hr ? 64.1 kg (6.41-38.46 mL/hr, rounded to 6.4-38.5 mL/hr), Intravenous, CONTINUOUS, Starting on 07/29/24 at 1545, Until 08/01/24 at 1028, ACT goal 160-180 sec. Check ACT every 15 minutes after the bolus and when the ACT falls below 230 sec, heparin infusion will be initiated at 10 Unit/kg/hr. ACT measurement should be obtained every 60 minutes until the desired ACT range (160-180 sec) is obtained and maintained for 2 hours. Then it can be followed every 2 hours. If ACT is 181-260 sec, reduce heparin infusion rate by 2 units/kg/hour and obtain ACT measurement in 60 minutes. If ACT is 260-280 sec, reduce heparin infusion rate by 4 units/kg/hour and obtain ACT measurement in 60 minutes. If ACT greater than 280 sec, hold heparin infusion. ACT should be obtained every 60 minutes until ACT is less than 230 sec. When ACT is less than 230 sec the heparin infusion should be restarted at 4 units/kg/hour less than most recent prior infusion rate. If ACT is within the desired goal 160-180 sec, no change in the heparin infusion should be made. If ACT remains 160-200 sec after 2 hours, then ACT can be checked every 2 hours. If ACT is less than 160 sec, increase heparin infusion by 3 units/kg/hour and obtain ACT 60 minutes after increase in infusion. If ACT remains less than 160 sec following two consecutive increases in heparin infusion, notify attending, check an anti-Xa level, and administer 2 units of FFP which will contain approximately 1 unit/mL of antithrombin. Recheck ACT one hour following FFP infusion. If anti-Xa level is 0.3-0.7 IU/mL and the ACT is 160-180 sec after the 2 units of FFP, ACT monitoring can resume as previous with every 60 minute checks. If the anti-Xa level is within therapeutic range and the ACT remains below 160 sec, heparin infusion will continue based off of anti-Xa levels per the [facility] and inform the [facility] attending. If neither the anti-XA level nor ACT is therapeutic, then notify the [facility] physician for antithrombin concentrate orders., Routine Rate/Dose Verify 07/31/2024 2:00 PM EST 13 Units/kg/hr 16.7 mL/hr Rate/Dose Verify 07/31/2024 12:00 PM EST 13 Units/kg/hr 16 .7 mL/hr Rate/Dose Change 07/31/2024 11:06 AM EST 13 Units/kg/hr 16 .7 mL/hr insulin lispro (HumaLOG;Admelog) (100 unit/mL) subcutaneous injection vial 1-4 Units 1-4 Units, Subcutaneous, 3 TIMES DAILY BEFORE MEALS, First dose on 07/29/24 at 1630, Until Discontinued, CORRECTION BOLUS [1-4 Units] Sensitive Sliding Scale (BG in mg/dL): Correction factor 40 (1 unit of insulin is expected to drop the glucose 40 mg/dL) ?? BG 160 - 200 Give 1 unit BG 201 - 240 Give 2 units BG 241 - 280 Give 3 units and recheck BG in 2 hours. BG greater than 280, give 4 units and recheck BG in 2 hours. - If recheck BG is LESS than 280, give no insulin and resume schedule - If recheck BG is GREATER than or EQUAL to 280, give 4 units and repeat BG in 2 hours & call for new insulin orders. DO NOT hold if NPO, unless specifically told to do so. ?? Per Inpatient Subcutaneous Insulin Policy, recheck a BG of greater than 240 mg/dL in 2 hours., Routine Given 07/29/2024 4:28 PM EST 1 Units lidocaine (pf) (Xylocaine) (4 mg/mL) in dextrose 5% 500 mL infusion 2 mg/min (30 mL/hr), Intravenous, Administer over 24 Hours, CONTINUOUS, Starting on 07/29/24 at 1530, Until Tue07/30/24 at 0909, For Cardiac indication., Routine Rate/Dose Verify 07/30/2024 8:00 AM EST 2 mg/min 30 mL/hr Rate/Dose Verify 07/30/2024 6:00 AM EST 2 mg/min 30 mL/h r Rate/Dose Verify 07/30/2024 4:00 AM EST 2 mg/min 30 mL/h r lidocaine (pf) 4 mg/mL (0.4 %) infusion 1 dose, Starting on 07/29/24 at 1510, Until Tue07/30/24 at 0909, Silvia Wan: cabinet override lidocaine (Xylocaine) (20 mg/mL) 2% injection 200 mg 200 mg (10 mL), Subcutaneous, ONCE, 1 dose, On 07/29/24 at 1600, For bedside procedure (a-line placement), STAT Given 07/29/2024 4:12 PM EST 200 mg LORazepam (Ativan) (2 mg/mL) injection 0.5 mg 0.5 mg, Intravenous, ONCE, 1 dose, On 07/29/24 at 1745, Routine Given 07/29/2024 5:29 PM EST 0.5 mg losartan (Cozaar) tablet 25 mg 25 mg, Oral, DAILY, First dose on Erna 08/02/24 at 1030, Until Discontinued, Routine Given 08/04/2024 9:3 4 AM EST 25 mg Given 08/03/2024 8:45 AM EST 25 mg Given 08/02/2024 10:55 AM EST 25 mg magnesium sulfate 2 g in sterile water 50 mL infusion 2 g, Intravenous, ONCE, 1 dose, On 07/29/24 at 1530, Administer over 120 Minutes Rate/Dose Verify 07/29/2024 4:00 PM EST 25 mL/hr New Bag 07/29/2024 3:36 PM EST 2 g 25 mL/hr magnesium sulfate 2 g in sterile water 50 mL infusion 2 g, Intravenous, ONCE, 1 dose, On 07/30/24 at 0145, Administer over 120 Minutes New Bag 07/30/2024 1:30 AM EST 2 g 25 mL/hr magnesium sulfate 2 g in sterile water 50 mL infusion 2 g, Intravenous, ONCE, 1 dose, On Erna 08/02/24 at 0845, Administer over 120 Minutes New Bag 08/02/2024 8:47 AM EST 2 g 25 mL/hr magnesium Sulfate 2 gram/50 mL (4 %) infusion Piggyback 1 dose, Starting on 07/29/24 at 1509, Until 07/29/24 at 1736, Silvia Wan: cabinet override melatonin tablet 3 mg 3 mg, Oral, NIGHTLY, First dose on Tue07/29/24 at 2100, Until Discontinued, Routine Given 07/30/2024 8:11 PM EST 3 mg Given 07/29/2024 8:16 PM EST 3 mg melatonin tablet 6 mg 6 mg, Oral, NIGHTLY, First dose on Tue07/31/24 at 0030, Until Discontinued, Routine Given 08/03/2024 10: 03 PM EST 6 mg Given 08/02/2024 8:25 PM EST 6 mg Given 08/01/2024 8:26 PM EST 6 mg metoprolol succinate XL (Toprol-XL) tablet 25 mg 25 mg, Oral, DAILY, First dose on Tue08/03/24 at 0900, Until Discontinued, DO NOT CRUSH OR OPEN, Routine Given 08/04/2024 9:34 AM EST 25 mg Given 08/03/2024 8:45 AM EST 25 mg metoprolol tartrate (Lopressor) tablet 12.5 mg 12.5 mg, Oral, EVERY 12 HOURS SCHEDULED (2 times per day), First dose on Tue08/02/24 at 1330, Until Discontinued, Routine Given 08/02/2024 8:25 PM EST 12.5 mg Given 08/02/2024 1:52 PM EST 12.5 mg NORepinephrine (Levophed) (16 mcg/mL) in dextrose 5% 250 mL infusion CONTINUOUS PRN, Starting on Tue07/29/24 at 1155, Until Tue07/30/24 at 1307, Intra-Operative (Intra-Procedure), Routine Rate/Dose Verify 07/30/2024 8:00 AM EST 75 mL/hr Rate/Dose Verify 07/30/2024 6:00 AM EST 75 mL/h r Rate/Dose Verify 07/30/2024 4:00 AM EST 75 mL/h r ondansetron (pf) (Zofran) (2 mg/mL) injection 4 mg 4 mg, Intravenous, EVERY 8 HOURS PRN, Starting on Tue07/29/24 at 2223, Until Tue08/02/24 at 1242, Nausea Given 07/30/2024 7:59 AM EST 4 mg Given 07/29/2024 10:26 PM EST 4 mg pantoprazole (Protonix) injection 40 mg 40 mg, Intravenous, DAILY, First dose on Tue07/29/24 at 1445, Until Discontinued, Reconstitute with 10 mL of normal saline to a concentration of 4 mg/mL and inject slowly over 2 minutes. Given 07/31/2024 9:20 AM EST 40 mg Given 07/30/2024 9:57 AM EST 40 mg Given 07/29/2024 2:50 PM EST 40 mg pantoprazole EC (Protonix) tablet 40 mg 40 mg, Oral, DAILY, First dose on Tue07/31/24 at 1200, Until Discontinued, DO NOT CRUSH OR OPEN, Routine Given 08/01/2024 8:19 AM EST 40 mg perflutren lipid microspheres (Definity) injection 0.5 mL 0.5 mL, Intravenous, ONCE, 1 dose, On Tue07/30/24 at 1230, Routine Given 07/30/2024 11:15 AM EST 0.9 mLs potassium chloride 20 mEq in sterile water 100 mL infusion 20 mEq, Intravenous, EVERY 1 HOUR PRN, Starting on Tue07/29/24 at 1539, Until Tue08/02/24 at 1242, Administer over 60 Minutes, hypokalemia, Administer 2 doses for a serum potassium (mMol/L) of 3.3 - 3.8 potassium chloride 20 meq/100 mL bags must be infused through a CENTRAL LINE New Bag 07/30/2024 10:25 PM EST 20 mEq 100 mL/ hr [facility] Bag 07/30/2024 9:17 PM EST 20 mEq 100 mL/hr New Bag 07/30/2024 5:25 PM EST 20 mEq 100 mL/hr potassium chloride 20 mEq in sterile water 100 mL infusion 20 mEq, Intravenous, EVERY 1 HOUR PRN, Starting on Tue07/29/24 at 1539, Until Erna 08/02/24 at 1242, Administer over 60 Minutes, hypokalemia, Administer 1 dose for a serum potassium (mMol/L) of 3.9 - 4 potassium chloride 20 meq/100 mL bags must be infused through a CENTRAL LINE New Bag 08/01/2024 5:14 AM EST 20 mEq 100 mL/h r potassium chloride ER (Klor-Con M) crystal tablet 20 mEq 20 mEq, Oral, EVERY 4 HOURS PRN, Starting on Tue08/02/24 at 1030, Until Tue08/02/24 at 1242, hypokalemia, Administer for serum potassium (mMol/L) of 3.9 - 4 potassium chloride ER particle/crystal tablets (Klor-Con M) may be broken in half and each half swallowed separately. Tablets can be dissolved in ~4 ounces of water; allow ~2 minutes to dissolve, stir well and drink immediately. Do not crush, chew, or suck on tablet., Routine Given 08/02/2024 10:54 AM EST 20 mEq spironolactone (Aldactone) tablet 12.5 mg 12.5 mg, Oral, DAILY, First dose on Tue08/03/24 at 0900, Until Discontinued, DO NOT SPLIT, CRUSH OR OPEN, Routine Given 08/04/2024 9:34 AM EST 12.5 mg Given 08/03/2024 8:45 AM EST 12.5 mg tamsulosin (Flomax) capsule 0.4 mg 0.4 mg, Oral, DAILY, First dose on Tue08/01/24 at 1300, Until Discontinued, DO NOT CRUSH OR CHEW, Routine Given 08/04/2024 9:34 AM EST 0.4 mg Given 08/03/2024 8:45 AM EST 0.4 mg Given 08/02/2024 8:47 AM EST 0.4 mg vasopressin (Vasostrict) (0.2 units/mL) in sodium chloride 0.9% 100 mL infusion CONTINUOUS PRN, Starting on Tue07/29/24 at 1240, Until Tue07/30/24 at 1307, Intra-Operative (Intra-Procedure) Rate/Dose Verify 07/29/2024 2:00 PM EST 12 mL/hr New Bag 07/29/2024 12:40 PM EST 0.04 Units/min 12 mL/hr vasopressin (Vasostrict) (0.2 units/mL) in sodium chloride 0.9% 100 mL infusion 0.04 Units/min (12 mL/hr), Intravenous, CONTINUOUS, Starting on Tue07/29/24 at 1500, Until Tue07/30/24 at 0909, DO NOT TITRATE: Do not exceed 0.04 units/min. Warning Vesicant/Irritant Medication Rate/Dose Verify 07/29/2024 6:00 PM EST 0.02 Units/min 6 mL/hr Rate/Dose Change 07/29/2024 5:49 PM EST 0.02 Units/min 6 m L/hr Rate/Dose Verify 07/29/2024 4:00 PM EST 0.04 Units/min 12 mL/hr documented in this encounter Active and Recently Administered Medications Times are shown in EST. Scheduled Medication Order 08/02/2024 08/03/2024 08/04/2024 aspirin EC tablet 81 mg 81 mg, Oral, DAILY, First dose on Tue07/30/24 at 0900, Until Discontinued, Recovery (Rec[facility]-Hospital Unit), Routine 0900 (Given - Provider: Parvin Strauss RN) 0845 (Given - Provider: Tonya Watson RN) 0934 (Given - Provider: Tonya Watson RN) atorvastatin (Lipitor) tablet 80 mg 80 mg, Oral, EVERY EVENING, First dose on Tue07/29/24 at 1700, Until Discontinued, Routine 1643 (Given - Provider: Parvin Strauss RN) 1700 (Due) 1623 (Given - Provider: Tonya Watson RN) clopidogreL (Plavix) tablet 75 mg 75 mg, Oral, DAILY, First dose on Tue07/30/24 at 0900, Until Discontinued, Routine 0847 (Given - Provider: Parvin Strauss RN) 0845 (Given - Provider: Tonya Watson RN) 0934 (Given - Provider: Tonya Watson RN) empagliflozin (Jardiance) tablet 10 mg 10 mg, Oral, DAILY, First dose on Tue08/03/24 at 1100, Until Discontinued, This medication should not be given with reduced PO intake/fluid loss, severe illness, or in patients with ketonemia or ketouria., Routine, This medication should be held for 3 days prior to surgery. Is there a planned procedure within 3 days? No, Indication for empagliflozin: heart failure (HFpEF or HFrEF), Is this a new initiation for patients with heart failure (HFpEF or HFrEF) with or without diabetes? Yes 1242 (Given - Provider: Tonya Watson RN) 0934 (Given - Provider: Tonya Watson RN) enoxaparin (Lovenox) (40 mg/0.4 mL) subcutaneous injection 40 mg 40 mg, Subcutaneous, NIGHTLY, First dose on Tue08/01/24 at 2100, Until Discontinued, Routine 2024 (Given - Provider: Edouard Wisdom RN) 2202 (Given - Provider: France Guerrero RN) losartan (Cozaar) tablet 25 mg 25 mg, Oral, DAILY, First dose on Tue08/02/24 at 1030, Until Discontinued, Routine 1055 (Given - Provider: Parvin Strauss RN) 0845 (Given - Provider: Tonya Watson, RENEA) 0934 (Given - Provider: Tonya Watson RN) magnesium sulfate 2 g in sterile water 50 mL infusion (COMPLETED) 2 g, Intravenous, ONCE, 1 dose, On Tue08/02/24 at 0845, Administer over 120 Minutes 0847 (New Bag - Provider: Parvin Strauss RN)1047 (Stopped - Provider: Parvin Strauss RN) melatonin tablet 6 mg 6 mg, Oral, NIGHTLY, First dose on Tue07/31/24 at 0030, Until Discontinued, Routine 2024 (Given - Provider: Edouard Wisdom, RENEA) 2202 (Given - Provider: France Guerrero RN - Comment: per patient wanted it later closer to bed) metoprolol succinate XL (Toprol-XL) tablet 25 mg 25 mg, Oral, DAILY, First dose on Tue08/03/24 at 0900, Until Discontinued, DO NOT CRUSH OR OPEN, Routine 0845 (Given - Provider: Tonya Watson RN) 0934 (Given - Provider: Tonya Watson RN) metoprolol tartrate (Lopressor) tablet 12.5 mg (CANCELED) 12.5 mg, Oral, EVERY 12 HOURS SCHEDULED (2 times per day), First dose on Tue08/02/24 at 1330, Until Discontinued, Routine 135 (Given - Provider: Parvin Strauss RN)2024 (Given - Provider: Edouard Wisdom, RENEA) spironolactone (Aldactone) tablet 12.5 mg 12.5 mg, Oral, DAILY, First dose on Tue08/03/24 at 0900, Until Discontinued, DO NOT SPLIT, CRUSH OR OPEN, Routine 0845 (Given - Provider: Tonya Watson RN) 0934 (Given - Provider: Tonya Watson RN) tamsulosin (Flomax) capsule 0.4 mg 0.4 mg, Oral, DAILY, First dose on Tue08/01/24 at 1300, Until Discontinued, DO NOT CRUSH OR CHEW, Routine 0847 (Given - Provider: Parvin Strauss RN) 0845 (Given - Provider: Tonya Watson, RN) 0934 (Given - Provider: Tonya Watson, RN) PRN Medication Order 08/02/2024 08/03/2024 08/04/2024 acetaminophen (Tylenol) tablet 650 mg 650 mg, Oral, EVERY 4 HOURS PRN, Starting on 07/30/24 at 0732, Until 08/04/24 at 1832, Pain, - Maximum dose of acetaminophen is 4,000 mg from all sources in 24 hours. - Unless otherwise specified, when ordered PRN for pain, acetaminophen should be given first if other PRN pain medications are ordered., Routine dextrose 50% intravenous solution 25 g(Linked Group 1) 25 g, Intravenous, EVERY 15 MIN PRN, Starting on 07/29/24 at 1415, Until 08/04/24 at 1832, Low blood sugar, ??Oral treatment preferred For Blood Glucose 50 to 70 mg/dL: ?? -??IF ABLE TO DRINK, give 120 mL juice or regular (not diet) soda - IF NPO, give 15 gram glucose 40% oral gel massaged into buccal mucosa - IF UNCONSCIOUS OR UNCOOPERATIVE, give 25 gram dextrose IV - IF NO IV ACCESS, give 1 mg glucagon IM. For Blood Glucose LESS than 50 mg/dL: ?? -??IF ABLE TO DRINK, give 240 mL juice or regular (not diet) soda - IF NPO, give 30 gram glucose 40% oral gel massaged into buccal mucosa - IF UNCONSCIOUS OR UNCOOPERATIVE, give 25 gram dextrose IV - IF NO IV ACCESS, 1 mg glucagon IM. Recheck BG in 15 minutes. May repeat juice/soda, gel, dextrose or glucagon once per episode. Notify provider if hypoglycemia does not resolve after two treatments. Providers should consider the following: administering longer-acting treatments for the duration of active insulin or hypoglycemia agent for persistent hypoglycemia and re-evaluating active insulin orders before administering the next dose. Warning Vesicant/Irritant Medication , Routine glucagon (Glucagen) (1 mg/mL) injection solution 1 mg(Linked Group 1) 1 mg, Intramuscular, EVERY 15 MIN PRN, Starting on 07/29/24 at 1415, Until 08/04/24 at 1832, Low blood sugar, ??Oral treatment preferred For Blood Glucose 50 to 70 mg/dL: ?? -??IF ABLE TO DRINK, give 120 mL juice or regular (not diet) soda - IF NPO, give 15 gram glucose 40% oral gel massaged into buccal mucosa - IF UNCONSCIOUS OR UNCOOPERATIVE, give 25 gram dextrose IV - IF NO IV ACCESS, give 1 mg glucagon IM. For Blood Glucose LESS than 50 mg/dL: ?? -??IF ABLE TO DRINK, give 240 mL juice or regular (not diet) soda - IF NPO, give 30 gram glucose 40% oral gel massaged into buccal mucosa - IF UNCONSCIOUS OR UNCOOPERATIVE, give 25 gram dextrose IV - IF NO IV ACCESS, 1 mg glucagon IM. Recheck BG in 15 minutes. May repeat juice/soda, gel, dextrose or glucagon once per episode. Notify provider if hypoglycemia does not resolve after two treatments. Providers should consider the following: administering longer-acting treatments for the duration of active insulin or hypoglycemia agent for persistent hypoglycemia and re-evaluating active insulin orders before administering the next dose., Routine glucose (Glutose) 40% oral geL(Linked Group 1) 15-30 g of glucose, Buccal, EVERY 15 MIN PRN, Starting on 07/29/24 at 1415, Until 08/04/24 at 1832, Low blood sugar, ??Oral treatment preferred For Blood Glucose 50 to 70 mg/dL: ?? -??IF ABLE TO DRINK, give 120 mL juice or regular (not diet) soda - IF NPO, give 15 gram glucose 40% oral gel massaged into buccal mucosa - IF UNCONSCIOUS OR UNCOOPERATIVE, give 25 gram dextrose IV - IF NO IV ACCESS, give 1 mg glucagon IM. For Blood Glucose LESS than 50 mg/dL: ?? -??IF ABLE TO DRINK, give 240 mL juice or regular (not diet) soda - IF NPO, give 30 gram glucose 40% oral gel massaged into buccal mucosa - IF UNCONSCIOUS OR UNCOOPERATIVE, give 25 gram dextrose IV - IF NO IV ACCESS, 1 mg glucagon IM. Recheck BG in 15 minutes. May repeat juice/soda, gel, dextrose or glucagon once per episode. Notify provider if hypoglycemia does not resolve after two treatments. Providers should consider the following: administering longer-acting treatments for the duration of active insulin or hypoglycemia agent for persistent hypoglycemia and re-evaluating active insulin orders before administering the next dose. 1 tube of Glutose-15 contains 15 grams of glucose (net weight of tube = 37.5 grams.), Routine potassium chloride ER (Klor-Con M) crystal tablet 20 mEq (CANCELED)(Linked Group 2) 20 mEq, Oral, EVERY 4 HOURS PRN, Starting on Erna 08/02/24 at 1030, Until Erna 08/02/24 at 1242, hypokalemia, Administer for serum potassium (mMol/L) of 3.9 - 4 potassium chloride ER particle/crystal tablets (Klor-Con M) may be broken in half and each half swallowed separately. Tablets can be dissolved in ~4 ounces of water; allow ~2 minutes to dissolve, stir well and drink immediately. Do not crush, chew, or suck on tablet., Routine 1054 (Given - Provider: Parvin Strauss RN) Linked Groups Order Group 1: glucose (Glutose) 40% oral geLJump to med 15-30 g of glucose, Buccal, EVERY 15 MIN PRN, Starting on 07/29/24 at 1415, Until 08/04/24 at 1832, Low blood sugar, ??Oral treatment preferred For Blood Glucose 50 to 70 mg/dL: ?? -??IF ABLE TO DRINK, give 120 mL juice or regular (not diet) soda - IF NPO, give 15 gram glucose 40% oral gel massaged into buccal mucosa - IF UNCONSCIOUS OR UNCOOPERATIVE, give 25 gram dextrose IV - IF NO IV ACCESS, give 1 mg glucagon IM. For Blood Glucose LESS than 50 mg/dL: ?? -??IF ABLE TO DRINK, give 240 mL juice or regular (not diet) soda - IF NPO, give 30 gram glucose 40% oral gel massaged into buccal mucosa - IF UNCONSCIOUS OR UNCOOPERATIVE, give 25 gram dextrose IV - IF NO IV ACCESS, 1 mg glucagon IM. Recheck BG in 15 minutes. May repeat juice/soda, gel, dextrose or glucagon once per episode. Notify provider if hypoglycemia does not resolve after two treatments. Providers should consider the following: administering longer-acting treatments for the duration of active insulin or hypoglycemia agent for persistent hypoglycemia and re-evaluating active insulin orders before administering the next dose. 1 tube of Glutose-15 contains 15 grams of glucose (net weight of tube = 37.5 grams.), Routine Or dextrose 50% intravenous solution 25 gJump to med 25 g, Intravenous, EVERY 15 MIN PRN, Starting on 07/29/24 at 1415, Until 08/04/24 at 1832, Low blood sugar, ??Oral treatment preferred For Blood Glucose 50 to 70 mg/dL: ?? -??IF ABLE TO DRINK, give 120 mL juice or regular (not diet) soda - IF NPO, give 15 gram glucose 40% oral gel massaged into buccal mucosa - IF UNCONSCIOUS OR UNCOOPERATIVE, give 25 gram dextrose IV - IF NO IV ACCESS, give 1 mg glucagon IM. For Blood Glucose LESS than 50 mg/dL: ?? -??IF ABLE TO DRINK, give 240 mL juice or regular (not diet) soda - IF NPO, give 30 gram glucose 40% oral gel massaged into buccal mucosa - IF UNCONSCIOUS OR UNCOOPERATIVE, give 25 gram dextrose IV - IF NO IV ACCESS, 1 mg glucagon IM. Recheck BG in 15 minutes. May repeat juice/soda, gel, dextrose or glucagon once per episode. Notify provider if hypoglycemia does not resolve after two treatments. Providers should consider the following: administering longer-acting treatments for the duration of active insulin or hypoglycemia agent for persistent hypoglycemia and re-evaluating active insulin orders before administering the next dose. Warning Vesicant/Irritant Medication , Routine Or glucagon (Glucagen) (1 mg/mL) injection solution 1 mgJump to med 1 mg, Intramuscular, EVERY 15 MIN PRN, Starting on 07/29/24 at 1415, Until 08/04/24 at 1832, Low blood sugar, ??Oral treatment preferred For Blood Glucose 50 to 70 mg/dL: ?? -??IF ABLE TO DRINK, give 120 mL juice or regular (not diet) soda - IF NPO, give 15 gram glucose 40% oral gel massaged into buccal mucosa - IF UNCONSCIOUS OR UNCOOPERATIVE, give 25 gram dextrose IV - IF NO IV ACCESS, give 1 mg glucagon IM. For Blood Glucose LESS than 50 mg/dL: ?? -??IF ABLE TO DRINK, give 240 mL juice or regular (not diet) soda - IF NPO, give 30 gram glucose 40% oral gel massaged into buccal mucosa - IF UNCONSCIOUS OR UNCOOPERATIVE, give 25 gram dextrose IV - IF NO IV ACCESS, 1 mg glucagon IM. Recheck BG in 15 minutes. May repeat juice/soda, gel, dextrose or glucagon once per episode. Notify provider if hypoglycemia does not resolve after two treatments. Providers should consider the following: administering longer-acting treatments for the duration of active insulin or hypoglycemia agent for persistent hypoglycemia and re-evaluating active insulin orders before administering the next dose., Routine Group 2: potassium chloride ER (Klor-Con M) crystal tablet 40 mEq (CANCELED) 40 mEq, Oral, EVERY 4 HOURS PRN, Starting on Erna 08/02/24 at 1030, Until Erna 08/02/24 at 1242, hypokalemia, Administer for serum potassium (mMol/L) of 3.6 - 3.8 potassium chloride ER particle/crystal tablets (Klor-Con M) may be broken in half and each half swallowed separately. Tablets can be dissolved in ~4 ounces of water; allow ~2 minutes to dissolve, stir well and drink immediately. Do not crush, chew, or suck on tablet., Routine Or potassium chloride ER (Klor-Con M) crystal tablet 20 mEq (CANCELED)Jump to med 20 mEq, Oral, EVERY 4 HOURS PRN, Starting on Erna 08/02/24 at 1030, Until Erna 08/02/24 at 1242, hypokalemia, Administer for serum potassium (mMol/L) of 3.9 - 4 potassium chloride ER particle/crystal tablets (Klor-Con M) may be broken in half and each half swallowed separately. Tablets can be dissolved in ~4 ounces of water; allow ~2 minutes to dissolve, stir well and drink immediately. Do not crush, chew, or suck on tablet., Routine documented in this encounter Care Teams Employee Health Rn Relationship Specialty Start Date End Date Alexia Mtz APRN [address] [place] [id number] PCP - General Family Medicine 07/30/24 documented as of this encounter
--- OUTSIDE RECORDS SUMMARY | 2024-08-22 11:33 | XMS_ITS | Encounter Summary ---
[place] [address] Care Team Providers Care Back Tender Insulation Board Name Role Phone Alexia Mtz LEGAL TRANSCRIPTIONIST Primary Care Provider [phone] Reason for Visit * Auth/Cert (Routine) Specialty Diagnoses / Procedures Referred By Theodore t Referred To Contact Diagnoses STEMI (ST elevation myocardial infarction) STEMI Procedures ER Vahe Lopez MD [facility] [place] [address] [facility] Referral ID Status Reason Start Date Expiration Date Visits Re quested Visits Authorized [id number] 1 1 Encounter Details Date Type Department Care Team (Late st Contact Info) Description 07/31/2024 4:45 PM EST Anesthesia Event [place] [address] Venkatesh Mauricio MD [facility] [place] [address] Anesthesia Record Procedure Summary Procedure Name Responsible Anesthesiologist Anesthesia Start Time Anesthesia Stop Time CARDIAC CATHETERIZATION Events No events on file. Meds * Agents No agents on file. * Blood No blood administrations on file. Lines, Drains, and Airways Type Details Placement Removal LDA Cath/EP Sheath 07/29/24; 1213; 12 F rench (Fr); Right; Femoral; Arterial 07/29/24 1213 by Arvin Morfin RN 07/31/24 1725 by Leila Zhang RN LDA Cath/EP Sheath 07/29/24; 1213; 9 Fr ench (Fr); Proximal, Right; Femoral; Venous 07/29/24 1213 by Arvin Morfin RN 08/01/24 1421 by Marivel English RN PA Catheter 07/29/24; 1300; miguel dard thermodilution catheter; Right; femoral vein; hemodynamic monitoring; Placed in [employer]; 08/01/24; 1420 07/29/24 1300 by Silvia Wan RN 08/01/24 1420 by Marivel English RN PIV 07/29/24; 1300; [id number] catheter system; 18 gauge; basilic vein (medial side of arm), left; present on admission to [facility]; 08/04/24; 1553 07/29/24 1300 by Silvia Wan RN 08/04/24 1553 by Tonya Watson RN PIV 07/29/24; 1300; 18 g auge; cephalic vein (lateral side of arm), left; Present on admission to [facility]; no longer indicated; 08/04/24; 1400 07/29/24 1300 by Silvia Wan RN 08/04/24 1400 by Tonya Watson RN Arterial Line 07/29/24; 1800; radi al artery, left; Ultrasound Guidance; continuous blood pressure monitoring, frequent blood gas measurement; David ORTEGA; 08/01/24; 1420 07/29/24 1800 by Ary Malone RN 08/01/24 1420 by Marivel English RN Urethral Catheter 07/30/24; 0257; Q1-2 hr UOP in ICU patient without alternative; 14; 1; 10; 08/01/24; 1329 07/30/24 0257 by Chase Castro RN 08/01/24 1329 by Marivel English RN documented in this encounter Social History Tobacco Use Types Packs/Day Years Used Date Smoking Tobacco: Former Cigarettes Smokeless Tobacco: Never Alcohol Use Standard Drinks/Week Comments Not Currently 0 (1 standard drink = 0.6 oz pur e alcohol) [facility] Utilities Answer Date Recorded In the [...] any time in the past 12 m [facility], were you homeless or living in a [place] [facility] facility (including now)? No 07/30/2024 IPV Inpatient Questions [...] AM EDT documented as of this encounter Plan of Treatment Upcoming Encounters Date Type Department Care Team (Late st Contact Info) Description 10/01/2024 10:00 AM EST Office Visit Cardiology at [address] [phone] Mushtaq Murphy APRN documented as of this encounter Visit Diagnoses Not on filedocumented in this encounter Care Teams Back Tender Insulation Board Relationship Specialty Start Date End Date Alexia Mtz, [address] [place] [address] PCP - General Family Medicine 07/30/24 documented as of this encounter
--- OUTSIDE RECORDS SUMMARY | 2024-08-22 11:33 | XMS_ITS | Encounter Summary ---
[place] [address] Care Team Providers Care Maintenance Job Titles Name Role Phone Alexia Mtz FREDRICK Primary Care Provider Reason for Visit * Auth/Cert (Routine) Specialty Diagnoses / Procedures Referred By Theodore muro Referred To Contact Diagnoses STEMI (ST elevation myocardial infarction) STEMI Procedures ER SUI Vahe Marvin MD [facility] [place] [address] [facility] Referral ID Status Reason Start Date Expiration Date Visits Re quested Visits Authorized [id number] 1 1 Encounter Details Date Type Department Care Team (Late st Contact Info) Description 07/31/2024 4:30 PM EST - 07/31/2024 5:30 PM EST [place] [id number] Maldonado Luis MD [facility] [place] [address] CARDIAC CATHETERIZATION Social History Tobacco Use Types Packs/Day Years Used Date Smoking Tobacco: Former Cigarettes Smokeless Tobacco: Never Alcohol Use Standard Drinks/Week Comments Not Currently 0 (1 standard drink = 0.6 oz pur e alcohol) [facility] Utilities Answer Date Recorded In the past 12 months has [employer] electric, gas, oil, or water company threatened [...] any time in the past 12 m [facility], were you homeless or living in a usp (including now)? No 07/30/2024 IPV Inpatient Questions [...] Sign Reading Time Taken Comments Blood Pressure 92/70 07/29/2024 3:30 PM EST Pulse 73 07/31/2024 5:30 PM EST Temperature 37.5 ??C (99.5 ??F) 07/31/2024 4:00 PM ES T Respiratory Rate 17 07/31/2024 4:00 PM EST Oxygen Saturation 95% 07/31/2024 5:30 PM EST Inhaled Oxygen Concentration - - Weight 65.4 kg (144 lb 2.9 oz) 07/30/2024 5:13 A M EST Height 167.6 cm (5' 6) 07/30/2024 2:49 AM EST Body Mass Index 21.81 07/30/2024 2:49 AM EST documented in this encounter Discharge Summaries * Alex Small MD - 08/04/2024 3:26 PM EST Discharge Summary Patient Name: Korey Montoya Patient Age: 74 y.o. Language: Icelandic Race: White Ethnicity: Not nor Admit date: [...] daily. Morris estimate is high. Dced with [facility] instead. - Referral to heart failure team for follow up. Inpatient Provider Contact Information: ALEX SMALL POORNIMA KOSTOJCHIN, YRN SILVERIO, AUBREE PARKER, KRYSTAL Zimmer For questions regarding this document or issues relating to this hospitalization on the Medical Service, please contact your inpatient physician through the [facility] Quality Control Operator . Issues afterhours and on weekends will [...] EKG. Patient transferred via air ambulance to [facility] on 07/29 for LHC and LOW to [...] EKG. Was transferred via air ambulance to [facility] for further management and LHC demonstrated 100% [...] the next year. Access was via right MACHINE FORMER and this sitewas clean, dry and intact [...] 4.5 4.0 CL 107 106 108* CO2 BUN 14 16 12 CREATININE 1.07 0.85 [...] Dose Details aspirin EC 81 mg EC (DR) tablet [...] for Chest pain. Replaces: nitroGLYcerin 400 mcg/spray [place], Non-Aerosol 0.4 mg Quantity: 90 tablet Refills: [...] Refills: 0 STOPPED Medications nitroGLYcerin 400 mcg/spray [place], Non-Aerosol Commonly known as: NITROLINGUAL Replaced by: [...] of one year. After this time, your cash shortage investigator will determine if you need to continue [...] away. Stay on the phone. The emergency magnetic prospecting operator will tell you what to do. [...] appointments: During 8am-5pm Tuesday through Tuesday call [phone] to speak with a nurse in the cardiology clinic All other times call [phone] and ask to speak to the store leader electronic security specialist. Follow up Appointments: PCP Alexia Mtz, PROJECT OFFICER [phone]. Please call to establish a follow up appointment within 1-2 weeks of discharge. Cardiology. Referral to heart failure has been sent. General Instructions None Future Appointments and Orders Future Orders Complete By Expires Referral to Cardiac Rehab [[id number] Custom] As directed Process Instructions: If no [...] of one year. After this time, your cash shortage investigator will determine if you need to continue [...] away. Stay on the phone. The emergency magnetic prospecting operator will tell you what to do. [...] appointments: During 8am-5pm Tuesday through Tuesday call [phone] to speak with a nurse in the cardiology clinic All other times call [phone] and ask to speak to the store leader electronic security specialist. Follow up Appointments: PCP Alexia Mtz, PROJECT OFFICER [phone]. Please call to establish a follow up [...] EKG. Patient transferred via air ambulance to [facility] on 07/29 for LHC and LOW to LAD for 100% occlusion Social History: Pt lives with his in a 1 level home with 2 NAOMI. 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 He [...] Total time: 35 (tef) minutes Time IN/OUT: 3611-1790 ZAIDA DUBOSE PT Pager: [phone] Physical Therapy Inpatient Rehabilitation Department * Yrn Ward MD - 08/03/2024 10:38 AM EST CV HOSPITALIST 2 - [facility] DAILY PROGRESS NOTE Page [phone] to reach a provider 04/04 Admit Date: [...] le edema Skin: warm Labs: Recent Labs 08/03/2451508/02/2441908/01/2441707/31/2410707/30/24210 WBC 7.85 8.51 8.51 10.25* 11.25* HGB 11.8* 12.2* 11.2* 11.2* 12.2* HCT 35.9* 35.8* 33.8* 33.9* 37.1* PLATELET 142* 111* 94* 109* 166 MCV 81.0* 81.2* 82.0* 82.1* 82.4* Recent Labs 08/03/2451508/02/2441908/01/24203808/01/2481908/01/2441707/31/2410707/30/24200207/30/24 1508 07/30/2421007/29/24201007/29/24 1403 NA 137 139 -- [...] or before 29-JUL-2024) Lateral injury pattern ACUTE DC / STEMI Abnormal ECG When compared with [...] left ventricular ejection fraction is 33% by Girodano's biplane. There are segmental wall motion abnormalities. [...] Compared to the overnight study by the electronic security specialist fellow the impella position is stable. 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 [facility] 07/29/24 Conclusions: * One vessel coronary artery disease (LAD) * Mild pulmonary hypertension * Elevated pulmonary capillary wedge pressure * Successful stent insertion of the proximal LAD lesion * See Dual Antiplatelet (DAPT) Recommendations above * Successful impella placement for cardiogenic shock. Telemetry: I have personally reviewed and interpreted the telemetry from the last 24 hours. [facility] Assessment: ASSESSMENT: Korey Montoya is a 74 y.o. male w/ PMH of hypertension, HLD, and BPH who presents for chief concern of chest pain after being found to have ST elevations on EKG. Patient transferred via air ambulance to [facility] on 07/29 for LHC and LOW to [...] to be determined OT: PCP Alexia Mtz, PROJECT OFFICER [phone] * Zaida Dubose, PT - 08/02/2024 2:08 PM EST Physical Therapy Evaluation Patient profile: Korey Montoya is a 74 y.o. male w/ PMH of hypertension, HLD, and BPH who presents for chief concern of chest pain after being found to have ST elevations on EKG. Patient transferred via air ambulance to [facility] on 07/29 for LHC and LOW to LAD for 100% occlusion Social History: Pt lives with his in a 1 level home with 2 NAOMI. 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 He [...] Total time: 37 (eval) minutes Time IN/OUT: 3054-7814 ZAIDA DUBOSE, PT Pager: [phone] Physical Therapy Inpatient Rehabilitation Department * Gagan [...] EKG. Patient transferred via air ambulance to [facility] on 07/29 for LHC and LOW to LAD for 100% occlusion. TTE showed apical akinesis and inferior hypokinesis with EF 20%. RHC showed elevated filling pressures. Impella placed and P-level 6 at time of transfer to [facility]. CI initially 1.97, improved to 2.2 After [...] PCP: Alexia Mtz APRN PCP phone number: [phone] Date of Admission: 07/29/2024 ( Hospital Day 4 days ) Attending:Bridgette Stauffer MD ID: Korey Montoya is a 74 y.o. male w/ PMH of hypertension, HLD, and BPH on Hospital Day4 for chief concern of chest pain after being found to have ST elevations on EKG. Patient transferred via air ambulance to [facility] on 07/29 for LHC and LOW to [...] 07/29/24 1621 PHART 7.48* 7.44 7.38 7.37 TJA2BPI 29* 29* 34* 36 PO2ART 71* 109* 141* 71* KNR0VNJ 20.6 19.4* 19.5* 20.4 VBG (Venous Blood Gas) Recent Labs 07/29/24 1401 PHVEN 7.30* PO2VEN 39 OMO0RFK 20.1* Mixed Venous Sat No results for input(s): B3POES1 in the last 168 hours. Objective: Vitals [...] 07/29/24 Right Femoral (Active) Site Assessment Clean;Dry;Intact 11/18/24 0600 Line Status Infusing 07/30/24 0600 Dressing [...] line leveled/zeroed;system flushed 07/29/241999 Labs: Recent Labs 08/02/2441908/01/2441707/31/2410707/30/2421007/29/24 1403 WBC 8.51 8.51 10.25* 11.25* 19.50* HGB 12.2* 11.2* 11.2* 12.2* 13.1* HCT 35.8* 33.8* 33.9* 37.1* 40.1* PLATELET 111* 94* 109* 166 236 MCV 81.2* 82.0* 82.1* 82.4* 83.4 Recent Labs 08/02/2441908/01/24203808/01/2481908/01/2441707/31/2410707/30/24200207/30/24 1508 07/30/2421007/29/24201007/29/24 1403 NA 139 -- -- 137 140 [...] interval not displayed. LFTs Recent Labs 07/31/24 0108 07/29/24 1403 [...] 07/29/24 1621 PHART 7.48* 7.44 7.38 7.37 ZHU4VCM 29* 29* 34* 36 PO2ART 71* 109* 141* 71* HGI8OXF 20.6 19.4* 19.5* 20.4 VBG (Venous Blood Gas) Recent Labs 07/29/24 1401 PHVEN 7.30* PO2VEN 39 AQQ6WPJ 20.1* Mixed Venous Sat No results for input(s): R0ORJN2 in the last 168 hours. Microbiology: Microbiology Results (Last 30 days) Procedure Component Value Units Date/Time Blood culture [[id number]] Collected: 07/29/241607 Lab Status: Preliminary result Specimen: Blood, Venous Updated: 08/01/241700 Blood Culture No growth at 72 hours Blood culture [[id number]] Collected: 07/29/241607 Lab Status: Preliminary result Specimen: Blood, Venous Updated: 08/01/241700 Blood Culture No growth at 72 hours Imaging: Results for orders placed or performed during the hospital encounter of 07/29/24 XR Chest One View (Exam End: 07/29/2024 2:30 PM) Result Value WORKSTATION ID [id number] Impression 1. No pulmonary edema. 2. No pleural effusion. 3. No pneumothorax. Thank you for letting us participate in the care of this patient. If you are a health care provider and have any questions regarding this report, please contact the number below. For patients who have questions please contact the health lpn care manager that requested your imaging first. Electronically signed by: Chris Candelaria MD, [facility] ([phone]), at 07/29/2024 3:21 PM TTE ( 07/30/24) Interpretation Summary - Left ventricle [...] Compared to the overnight study by the electronic security specialist fellow the impella position is stable. The [...] EKG. Patient transferred via air ambulance to [facility] on 07/29 for LHC and LOW to [...] #BPH - Continue home tamsulosin 0.04mg Gastrointestinal/Metabolic/Nutrition #EDISON Hematology #EDISON Infection #Leukocytosis, down trending - f/ Bcx(07/29) - NGTD #Routine Diet: Cardiac diet DVT Prophylaxis: Lovenox GI Prophylaxis: Not indicated Code Status: Attempt Cardiopulmonary Resuscitation - Inpatient Dispo: Pending clinical course Susannah Ornelas MD Internal Medicine, PGY-1 Cardiology, [facility] 08/02/24 12:45 PM CARDIOLOGY STAFF NOTE I [...] (start ARB today). Transfer to floor. Krystal Parker MD, [facility], [facility] Staff Form Stripper customer care consultant * Gagan Catherine MD - 08/01/2024 11:12 [...] EKG. Patient transferred via air ambulance to [facility] on 07/29 for LHC and LOW to LAD for 100% occlusion. TTE showed apical akinesis and inferior hypokinesis with EF 20%. RHC showed elevated filling pressures. Impella placed and P-level 6 at time of transfer to [facility]. CI initially 1.97, improved to 2.2 After impella. Received about 3 L of fluid during procedural course. Patient initially required norepinephrine 30, epinephrine 10, and vasopressin 0.04 for hemodynamic support, which was weaned upon arrival to [facility] to norepinephrine 20and levo 0.04 N - [...] PCP: Alexia Mtz APRN PCP phone number: [phone] Date of Admission: 07/29/2024 ( Hospital Day 3 days ) Attending:Krystal Parker MD ID: Korey Montoya is a 74 y.o. male w/ PMH of hypertension, HLD, and BPH on Hospital Day3 for chief concern of chest pain after being found to have ST elevations on EKG. Patient transferred via air ambulance to [facility] on 07/29 for LHC and LOW to [...] 07/29/24 1621 PHART 7.48* 7.44 7.38 7.37 EYT1CTG 29* 29* 34* 36 PO2ART 71* 109* 141* 71* DEH0ZEF 20.6 19.4* 19.5* 20.4 VBG (Venous Blood Gas) Recent Labs 07/29/24 1401 PHVEN 7.30* PO2VEN 39 CEZ1ZFJ 20.1* Mixed Venous Sat No results for input(s): T9RTHU2 in the last 168 hours. PA Catheter #'s PA Catheter PAP (mmHg): 46/16 (08/01/24599) PAP (mean): 26 (08/01/24599) CO (l/min): 5.4 l/min (08/01/24 0410) CI (l/min/m2): 3.1 l/min/m2 (08/01/24409) SVR (dyne*sec)/cm2: 1042 (dyne*sec)/cm2 (08/01/240) SVRI (dyne*sec)/cm2: 1782 (dyne*sec)/cm5 (08/01/24409) Stroke Volume [...] 07/29/241999 Site Preparation/Maintenance dressing: dry and intact 07/30/24 06 Securement catheter stabilization device, secured with 07/29/241999 Patency/Maintenance flushed without difficulty 07/29/241999 Dressing change due 08/05/24 07/29/24 1400 Phlebitis 0-->no symptoms 07/30/24 0600 Infiltration 0-->no symptoms 07/30/24 0600 Site Signs/Symptoms no redness;no swelling;no warmth;no pain;no palpable cord;no streak formation;no drainage 07/29/241999 PIV 07/29/24 1300 18 gauge cephalic vein (lateral side of arm), left (Active) Indication/Daily Review of Necessity fluid therapy intermittent;medication therapy intermittent 07/29/241999 Site Preparation/Maintenance dressing: dry and intact 07/30/24599 Securement site guard in place 07/29/241999 Patency/Maintenance flushed without difficulty 07/29/241999 Dressing change due 07/29/24 07/29/24 1400 Phlebitis 0-->no symptoms 07/30/24 06 Infiltration 0-->no symptoms 07/30/24 06 Site Signs/Symptoms no redness;no swelling;no warmth;no pain;no [...] 07/29/241999 Dressing dressing dry and intact 07/30/24 0600 Arterial Catheter Securement secured with sterile tape strips 07/29/241999 Lumen Patency/Care flushed without difficulty;blood return present 07/29/241999 Waveform normal 07/30/24599 Phlebitis 0-->no symptoms 07/30/24599 Infiltration 0-->no symptoms 07/30/24599 Site Signs/Symptoms no redness;no swelling;no warmth;no pain;no palpable cord;no streak formation;no drainage 07/29/241999 Pressure Catheter Interventions line leveled/zeroed;system flushed 07/29/241999 Labs: Recent Labs 08/01/2441707/31/2410707/30/2421007/29/24 1403 07/29/24 1246 WBC 8.51 10.25* 11.25* 19.50* -- HGB 11.2* 11.2* 12.2* 13.1* -- HCT 33.8* 33.9* 37.1* 40.1* 39.0* PLATELET 94* 109* 166 236 -- MCV 82.0* 82.1* 82.4* 83.4 -- Recent Labs 08/01/2441707/31/2410707/30/24200207/30/24 1508 07/30/2421007/29/24201007/29/24 1403 NA 137 140 -- [...] 1.01 0.88 -- 0.88 LFTs Recent Labs 07/31/2410707/29/24 1403 PROT 5.0* 6.0* ALBUMIN 3.1* 3.6 [...] 07/29/24 1621 PHART 7.48* 7.44 7.38 7.37 KTG6ITB 29* 29* 34* 36 PO2ART 71* 109* 141* 71* TIU5JVW 20.6 19.4* 19.5* 20.4 VBG (Venous Blood Gas) Recent Labs 07/29/24 1401 PHVEN 7.30* PO2VEN 39 GWB9KJJ 20.1* Mixed Venous Sat No results for input(s): Y9MAEB3 in the last 168 hours. Microbiology: Microbiology Results (Last 30 days) Procedure Component Value Units Date/Time Blood culture [[id number]] Collected: 07/29/24 160 Lab Status: Preliminary result Specimen: Blood, Venous Updated: 07/31/24 170 Blood Culture No growth at 48 hours Blood culture [[id number]] Collected: 07/29/24 1608 Lab Status: Preliminary result Specimen: Blood, Venous Updated: 07/31/24 1701 Blood Culture No growth at 48 hours Imaging: Results for orders placed or performed during the hospital encounter of 07/29/24 XR Chest One View (Exam End: 07/29/2024 2:30 PM) Result Value WORKSTATION ID [id number] Impression 1. No pulmonary edema. 2. No pleural effusion. 3. No pneumothorax. Thank you for letting us participate in the care of this patient. If you are a health care provider and have any questions regarding this report, please contact the number below. For patients who have questions please contact the health lpn care manager that requested your imaging first. Electronically signed by: Chris Candelaria MD, [facility] ([phone]), at 07/29/2024 3:21 PM TTE ( 07/30/24) Interpretation Summary - Left ventricle [...] Compared to the overnight study by the electronic security specialist fellow the impella position is stable. The [...] EKG. Patient transferred via air ambulance to [facility] on 07/29 for LHC and LOW to [...] Susannah Ornelas MD Internal Medicine, PGY-1 Cardiology, [facility] 08/01/24 7:13 AM CARDIOLOGY STAFF NOTE I [...] with him; questions answered. Krystal Parker MD, [facility], [facility] Staff Form Stripper customer care consultant * Krystal Parker MD - 07/31/2024 1:06 [...] 64.1 kg (141 lb 5 oz) Mr. Montoya'moe developed cardiogenic shock after presenting with an [...] EKG. Patient transferred via air ambulance to [facility] on 07/29 for LHC and LOW to LAD for 100% occlusion. TTE showed apical akinesis and inferior hypokinesis with EF 20%. RHC showed elevated filling pressures. Impella placed and P-level 6 at time of transfer to [facility]. CI initially 1.97, improved to 2.2 After impella. Received about 3 L of fluid during procedural course. Patient initially required norepinephrine 30, epinephrine 10, and vasopressin 0.04 for hemodynamic support, which was weaned upon arrival to [facility] to norepinephrine 20and levo 0.04 N - [...] PCP: Alexia Mtz APRN PCP phone number: [phone] Date of Admission: 07/29/2024 ( Hospital Day 2 days ) Attending:Krystal Parker MD ID: Korey Montoya is a 74 y.o. male w/ PMH of hypertension, HLD, and BPH on Hospital Day2 for chief concern of chest pain after being found to have ST elevations on EKG. Patient transferred via air ambulance to [facility] on 07/29 for LHC and LOW to [...] 0057 07/29/24 1621 PHART 7.44 7.38 7.37 MIV4ISQ 29* 34* 36 PO2ART 109* 141* 71* FVG5UFS 19.4* 19.5* 20.4 VBG (Venous Blood Gas) Recent Labs 07/29/24 1401 PHVEN 7.30* PO2VEN 39 DEH8SIE 20.1* Mixed Venous Sat No results for input(s): S8DBPW6 in the last 168 hours. PA Catheter #'s PA Catheter PAP (mmHg): 48/18 (07/31/24799) PAP (mean): 28 (07/31/24799) CO (l/min): 4.8 l/min (07/31/24405) CI (l/min/m2): 2.8 l/min/m2 (07/31/24405) SVR (dyne*sec)/cm2: 1147 (dyne*sec)/cm2 (07/31/24405) SVRI (dyne*sec)/cm2: 1961 (dyne*sec)/cm5 (07/31/24405) Stroke Volume (ml): 70.7 ml (07/31/24405) CVP (mmHg): 10 mmHg (07/31/24799) @4AM CVP 10 PA 43/15 mean 25 [...] L/min Intake/Output Summary (Last 24 hours) at 07/31/2024 0819 Last data filed at 07/31/2024 0800 Gross [...] line leveled/zeroed;system flushed 07/29/241999 Labs: Recent Labs 07/31/24 0108 07/30/241 07/29/24 1403 07/29/24 1246 07/29/24 1212 WBC 10.25* 11.25* 19.50* -- -- HGB 11.2* 12.2* 13.1* -- -- HCT 33.9* 37.1* 40.1* 39.0* 36.0* PLATELET 109* 166 236 -- -- MCV 82.1* 82.4* 83.4 -- -- Recent Labs 07/31/24 0108 07/30/24200207/30/24 1508 07/30/24 0211 07/29/24201007/29/24 1403 NA 140 -- 141 135 -- 138 CL 110* -- 109* 105 -- 104 CO2 24 -- 21* 19* -- 19* K 4.1 3.8 3.4* 4.9 4.1 3.6 MAGNESIUM 0.89 -- 0.90 1.01 -- 0.70 PHOS -- -- 2.1* -- 2.1* 2.5 CALCIUM 7.7* -- 7.9* 7.7* -- 8.0* BUN 11 -- 15 -- 13 CREATININE 0.96 -- 1.01 [...] 0057 07/29/24 1621 PHART 7.44 7.38 7.37 JWB7NRN 29* 34* 36 PO2ART 109* 141* 71* WMS6OIU 19.4* 19.5* 20.4 VBG (Venous Blood Gas) Recent Labs 07/29/24 1401 PHVEN 7.30* PO2VEN 39 QTA0YHG 20.1* Mixed Venous Sat No results for input(s): F4MXFM1 in the last 168 hours. Microbiology: Microbiology Results (Last 30 days) Procedure Component Value Units Date/Time Blood culture [[id number]] Collected: 07/29/241607 Lab Status: Preliminary result Specimen: Blood, Venous Updated: 07/30/241700 Blood Culture No Growth at 18-24 hrs. Blood culture [[id number]] Collected: 07/29/241607 Lab Status: Preliminary result Specimen: Blood, Venous Updated: 07/30/241700 Blood Culture No Growth at 18-24 hrs. Imaging: Results for orders placed or performed during the hospital encounter of 07/29/24 XR Chest One View (Exam End: 07/29/2024 2:30 PM) Result Value WORKSTATION ID [id number] Impression 1. No pulmonary edema. 2. No pleural effusion. 3. No pneumothorax. Thank you for letting us participate in the care of this patient. If you are a health care provider and have any questions regarding this report, please contact the number below. For patients who have questions please contact the health lpn care manager that requested your imaging first. Electronically signed by: Chris Candelaria MD, [facility] ([phone]), at 07/29/2024 3:21 PM TTE ( 07/30/24) Interpretation Summary - Left ventricle [...] Compared to the overnight study by the electronic security specialist fellow the impella position is stable. The [...] at 07/31/24 0800 AMIOdarone 0.5 mg/min (07/31/24 0800) heparin (porcine) infusion 7 Units/kg/hr (07/31/24 08) [...] EKG. Patient transferred via air ambulance to [facility] on 07/29 for LHC and LOW to [...] Ornelas MD Internal Medicine, PGY-1 Cardiology, [facility] 07/31/24 8:19 AM * Krystal Parker MD [...] work to optimize volume status while continuing rgicceg-zvdcwv-labmvaolef therapies at this time. Obtain comprehensive TTE. [...] ILL WITH THESE DIAGNOSES BEING MANAGED BY [facility] TEAM: # Anterior STEMI, late-presenting # Cardiogenic [...] EKG. Patient transferred via air ambulance to [facility] on 07/29 for LHC and LOW to LAD for 100% occlusion. TTE showed apical akinesis and inferior hypokinesis with EF 20%. RHC showed elevated filling pressures. Impella placed and P-level 6 at time of transfer to [facility]. CI initially 1.97, improved to 2.2 After impella. Received about 3 L of fluid during procedural course. Patient initially required norepinephrine 30, epinephrine 10, and vasopressin 0.04 for hemodynamic support, which was weaned upon arrival to [facility] to norepinephrine 20and levo 0.04 N - [...] PCP: Yoel Artis APRN PCP phone number: [phone] Date of Admission: 07/29/2024 ( Hospital Day 1 day ) Attending:Aubree Silverio MD ID: Korey Montoya is a 74 y.o. male w/ PMH of hypertension, HLD, and BPH on Hospital Day1 for chief concern of chest pain after being found to have ST elevations on EKG. Patient transferred via air ambulance to [facility] on 07/29 for LHC and LOW to LAD for 100% occlusion. 24 Hour Events/Subjective: Yesterday: - Admitted to the [facility] - After his LHC, he demonstrated significant [...] 0057 07/29/24 1621 PHART 7.44 7.38 7.37 FJO2ANK 29* 34* 36 PO2ART 109* 141* 71* ESA4GGY 19.4* 19.5* 20.4 VBG (Venous Blood Gas) Recent Labs 07/29/24 1401 PHVEN 7.30* PO2VEN 39 LZH6LNB 20.1* Lactate ( Last 12 hours) 1.3 >> 1.2 Mixed Venous Sat No results for input(s): C7UXMR4 in the last 168 hours. PA Catheter [...] Assessment Clean;Dry;Intact 07/30/24 06 Line Status Infusing 07/30/24 06 Dressing Status Clean;Dry;Intact 07/30/24599 Dressing Change Due 08/05/24 07/29/24 1400 LDA Cath/EP Sheath 07/29/24 Proximal;Right Femoral (Active) Site Assessment Clean;Dry;Intact 07/30/24 06 Line Status Infusing 07/30/24 06 Dressing Status Clean;Dry;Intact 07/30/24 06 Dressing Intervention New 07/29/24 1400 Dressing Change [...] line leveled/zeroed;system flushed 07/29/241999 Labs: Recent Labs 07/30/2421007/29/24 1403 07/29/24 1246 07/29/24 1212 WBC 11.25* 19.50* -- -- HGB 12.2* 13.1* -- -- HCT 37.1* 40.1* 39.0* 36.0* PLATELET 166 236 -- -- MCV 82.4* 83.4 -- -- Recent Labs 07/30/2421007/29/24201007/29/24 1403 NA 135 -- 138 CL 105 [...] 0057 07/29/24 1621 PHART 7.44 7.38 7.37 [id number] 29* 34* 36 PO2ART 109* 141* 71* ADR4NYC 19.4* 19.5* 20.4 VBG (Venous Blood Gas) Recent Labs 07/29/24 1401 PHVEN 7.30* PO2VEN 39 [id number] 20.1* Mixed Venous Sat No results for input(s): O7SAWP6 in the last 168 hours. Microbiology: Microbiology Results (Last 30 days) Procedure Component Value Units Date/Time Blood culture [[id number]] Collected: 07/29/24 1608 Lab Status: In process Specimen: Blood, Venous Updated: 07/29/24 1626 Blood culture [[id number]] Collected: 07/29/24 1608 Lab Status: In process Specimen: Blood, Venous Updated: 07/29/24 1615 Imaging: Results for orders placed or performed during the hospital encounter of 07/29/24 XR Chest One View (Exam End: 07/29/2024 2:30 PM) Result Value WORKSTATION ID [id number] Impression 1. No pulmonary edema. 2. No pleural effusion. 3. No pneumothorax. Thank you for letting us participate in the care of this patient. If you are a health care provider and have any questions regarding this report, please contact the number below. For patients who have questions please contact the health lpn care manager that requested your imaging first. Electronically signed by: Chris Candelaria MD, [facility] ([phone]), at 07/29/2024 3:21 PM Medications Scheduled Meds: aspirin EC 81 mg [...] EKG. Patient transferred via air ambulance to [facility] on 07/29 for LHC and LOW to [...] EKG. Patient transferred via air ambulance to [facility] on 07/29 for LHC and LOW to [...] EKG. Was transferred via air ambulance to [facility] for further management and [facility] demo nstrated 100% occlusion. No significant RCA, LMCA, or LCX disease. LOW placed in LAD with some residual distal disease meriting placement of overlapping distal stent. TTE showed apical akinesis and inferior hypokinesis with EF 20%. RHC showed elevated filling pressures. Impella placed and P-level 6 at time of transfer to [facility]. CI initially 1.97, improved to 2.2 After impella. Received about 3 L of fluid during procedural course. Patient initially required norepinephrine, epinephrine, and vasopressin for hemodynamic support, which was weaned upon arrival to [facility] to norepinephrine 20 and levo 0.04 (epinephrine discontinued) and eventually was on dobutamine which was discontinued, 08/01/2020 4 AM. Discussing the case with the CV team this afternoon, patient is stable to [...] (WRVU 4.57) performed by Brandan Mcgovern MD [facility] ENDOSCOPY Significant Family History: Family History Problem [...] mouth. Past Week nitroGLYcerin (NITROLINGUAL) 400 mcg/spray [place], Non-Aerosol 1 spray to anus for proctalgia [...] 3.5 guiding catheter and a 3.5 Fr [facility] [address] 20 Mhz using Manual pullback. Imaging [...] priority for the procedure was Emergent. The NCDR indication for the procedure was STEMI-Immediate PCI [...] atmospheres. A premounted 3.00 x 22 mm [employer] [place] (LOW) was deployed with a maximum inflation [...] atmospheres. A premounted 3.00 x 08 mm [employer] [place] (LOW) was deployed with a maximum inflation [...] a limited study performed by a fellow electronic security specialist to evaluate for cardiogenic shock with impella [...] Compared to the overnight study by the electronic security specialist fellow the impella position is stable. The [...] EKG. Patient transferred via air ambulance to [facility] on 07/29 for LHC and LOW to [...] Stauffer MD Provider #: [id number] 08/02/2024 * Aubree Silverio MD - 07/29/2024 2:10 PM EST Images from the original note were not included. Cardiology ICU H&P Patient info: Name: Korey Montoya : 1950 PCP: Yoel Artis APRN PCP phone number: [phone] Date of Admission: 07/29/2024 ( Hospital Day 0 days ) Attending:Aubree Silverio MD ID: Korey Montoay is a 74 y.o. male w/ PMH of hypertension, HLD, and BPH who presents for chief concern of chest pain after being found to have ST elevations on EKG. Patient transferred via air ambulance to [facility] on 07/29 for LHC and LOW to LAD for 100% occlusion. HPI: Korey Montoya is a 74 y.o. male w/ PMH of hypertension, HLD, and BPH who presents for chief concern of chest pain after being found to have ST elevations on EKG. Patient transferred via air ambulance to [facility] on 07/29 for LHC and LOW to [...] EKG. Was transferred via air ambulance to [facility] for further management and LHC demonstrated 100% [...] (WRVU 4.57) performed by Brandan Mcgovern MD [facility] ENDOSCOPY Family History Family History Problem Relation [...] Blood Gas) No results for input(s): PHART, VJD6TFK, PO2ART, WSR0ZGQ, LACTATEVEN, ZTU0COQ, PFRATIOART2 in the last 168 hours. VBG (Venous Blood Gas) Recent Labs 07/29/24 1401 PHVEN 7.30* PO2VEN 39 QAQ3MXX 20.1* Mixed Venous Sat No results for input(s): J7MFRG6 in the last 168 hours. PA Catheter [...] Blood Gas) No results for input(s): PHART, OHB5LXZ, PO2ART, GNQ0UFI, LACTATEVEN, FVX8HYX, PFRATIOART2 in the last 168 hours. VBG (Venous Blood Gas) Recent Labs 07/29/24 1401 PHVEN 7.30* PO2VEN 39 CYY8QAT 20.1* Mixed Venous Sat No results for input(s): A3NRYY3 in the last 168 hours. Microbiology: Microbiology [...] EKG. Patient transferred via air ambulance to [facility] on 07/29 for LHC. Found to have 100% occlusion of LAD for which he underwent LOW to LAD.Otherwise no other significant vessel disease. Fahad is currently hemodynamically tenuous but improving upon admission to [facility], requiring hemodynamic support with norepinephrine and vasopressin at time of admission along with mechanical support with Impella device. Reassuringly, he demonstrates decreasing pressor requirements since admission to [facility], with epinephrine completely weaned. He does demonstrate [...] Bernardo Amos MD Internal Medicine, PGY-3 Cardiology, [facility] 07/29/24 3:14 PM Cardiology Attending Note I [...] NSVT - continue amiodarone infusion for now Aubree Silverio MD, FACP, FACC Section of Cardiovascular Medicine [facility] Curator Horticultural Museumtest inspection engineer [facility] This patient meets or has met medical [...] to the planned procedure. Hand Hygiene: The talent buyer did perform hand hygiene prior to arterial [...] ease. Good wave form. Ivan Hernandez MD Marking Stitcher Associated attestation - Rolando Yeh MD - [...] Fahad was quite active prior to his DC. He had even started running (to help [...] No Patient is insured through: Primary Insurance: [facility] MANAGED MEDICARE Payor: [facility] MANAGED MEDICARE / Plan: [facility] MANAGED MEDICARE COMPLETE / Product Type: [...] Date of Discharge: 08/04/2024 Gaby Wong RN, Pager-[phone] * Initial Assessments - Char Meza, OT - 08/03/2024 10:00 AM EST Occupational Therapy Evaluation Patient profile: Korey Montoya is a 74 y.o. male admitted on 07/29/2024 w/ PMH of hypertension, HLD, and BPH who presents for chief concern of chest pain after being found to have ST elevations onEKG. Patient transferred via air ambulance to [facility] on 07/29 for LHC and LOW to [facility] for 100% occlusion. Past Medical History: Diagnosis Date ADHD HLD (hyperlipidemia) HTN (hypertension) Tremor Past Surgical History: Procedure Laterality Date HAND SURGERY PRO COLONOSCOPY, REMV LESN, SNARE N/A 08/30/2023 COLONOSCOPY, POLYPECTOMY, REMOVAL LESION BY SNARE (WRVU 4.57) performed by Brandan Mcgovern MD [facility] ENDOSCOPY Social History: Patient lives with his . Home Setup: 2 NAOMI to a 1 level home. DME: none Baseline ADL/Mobility: Independent with ADLs and IADLs. Enjoys walking. able assist as needed. Precautions/Special Considerations: Full code. Risk for falls. Subjective: I have access to an [employer] weight gym. (Educated to wait for MD [...] evaluation only Total Minutes, Occupational Therapy: 14 ([id number] (evaluation)) 2017 OT Evaluation Code Rationale: Diagnosis [...] and measurable assessment of functional outcome. Pager: [phone] Char Meza OT 08/03/2024 Occupational Therapy Rehabilitation [...] (Interventions Implemented as Appropriate) Flowsheets (Taken 08/01/2024 2074) Outcome Summary: A+O, no pain. NSR. MAP [...] Procedure Note: Patient Name: Korey Montoya : [id number] MR#: [id number] Case Date: 07/31/2024 Quality Control Operator: Surgeons and Role: * Maldonado Luis MD - Primary * Quinten Charles PA - Physician Material Carrier Preoperative diagnosis: shock, impella Postoperative diagnosis: * same * Procedure(s) performed: Impella removal form right MACHINE FORMER Access: Right MACHINE FORMER A time-out was conducted prior to the [...] Admitted From: Transfer from another hospital Location: [facility] Reason for Hospitalization: chest pain Past medical History: Past Medical History: Diagnosis Date ADHD HLD (hyperlipidemia) HTN (hypertension) Tremor Hospitalizations Within the Past 30 Days: no previous admission in last 30 days Current Decision-Making Capacity: Self If AD's have not been completed the following surrogate would be surrogate decision maker per [place] surrogate decision making law. (Only good for 180 days) Any patient receiving care in [place] must abide by [place] law. The hierarchy for surrogate decision making [...] (i) The agent with financial power of civil litigation attorney or a conservator appointed in accordance [...] were you homeless or living in a usp (including now)?: No In the past 12 months has the [employer] gas, oil, or water [employer] threatened to shut off services in your [...] it) Home Address confirmed as: Mailing Address: [facility] [address] [address] Physical Address: [address] [place], [place] Social & Family Supports: All names [...] points: Addiction likely Health/Prescription Coverage: Primary Insurance: [facility] [employer] MEDICARE Payor: [employer] MANAGED MEDICARE / Plan: [facility] MANAGED MEDICARE COMPLETE / Product Type: *No Product type* / Secondary Insurance: N/A ; Prescription Coverage: Yes Preferred Pharmacy: [address] [address] Status: Patient is a : No Primary Care Provider confirmed: Alexia Mtz, PROJECT OFFICER [phone] Patient/Caregiver Goals of Treatment: return home Potential [...] and coordination of care as indicated. Kelley Melgar, RN * Plan of Care - [...] Catheterization) Goal: Absence of Vascular Access Complication 07/30/2024529 by Chase Castro RN Outcome: Ongoing (Interventions Implemented as Appropriate) 07/30/2024 by Chase Castro RN Outcome: Ongoing (Interventions Implemented as Appropriate) Problem: Pain (Cardiac Catheterization) Goal: Acceptable Pain Control 07/30/2024 0530 by Chase Castro RN Outcome: Ongoing (Interventions Implemented as Appropriate) 07/30/2024 0529 by Chase Castro RN Outcome: Ongoing (Interventions Implemented as Appropriate) * Plan of Care - Ary Malone RN - 07/29/2024 6:25 PM EST 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 CXR and EKG completed. Impella [...] Procedure Note: Patient Name: Korey Montoya : [id number] MR#: [id number] Case Date: 07/29/2024 Quality Control Operator: Surgeons and Role: * Vahe Marvin MD - Primary * Susannah Watts PA - Physician Material Carrier Preoperative diagnosis: STEMI Postoperative diagnosis: * STEMI, LAD Artery * * Cardiogenic Shock * Procedure(s) performed: [facility] Coronary angiogram Stent insertion coronary IVUS coronary Venous line insert [facility] Theodore Colette Catheter Vascular closure device Ventricular assist [...] x 22 mm to 14 deonna [place] with LIZ 3 flow. Residual distal disease at distal stent, overlapping distal stent was inserted with 3.0 x 8 mm [employer] [place]. Systolic's in the 80's sustained. Patient re [...] 10:00 AM EST Office Visit Cardiology at [address] [phone] Mushtaq Murphy, PROJECT OFFICER Scheduled Orders Name Type Priority Associated Diagnoses [...] CBC (with Diff) (08/04/2024 6:08 AM EST) Pathologist [facility] White Blood Cell 7.27 4.00 - 9.50 x10(3)/mc L 08/04/2024 6:[address] [facility] Red Blood Cell 4.28(L) 4.58 - 5.54 x10(6)/mc L 08/04/2024 6:[address] [facility] Hemoglobin 11.6(L) 13.7 - 16.5 g/dL 08/04/2024 6:[address] [facility] Hematocrit 34.8(L) 40.5 - 48.5 % 08/04/2024 6:[address] [facility] Mean Cell Volume 81.3(L) 82.9 - 93.1 fL 08/04/2024 6:[address] [facility] Mean Cell Hemoglobin 27.1(L) 27.5 - 32.1 pg 08/04/2024 6:[address] [facility] Mean Cell Hemoglobin Concentration 33.3 32.0 - 35.7 g/dL 08/04/2024 6:[address] [facility] Platelet 178 145 - 357 x10(3)/mc L 08/04/2024 6:[address] [facility] Mean Platelet Volume 10.6 7.6 - 12.9 fL 08/04/2024 6:[address] [facility] RDW Standard Deviation 42.0 36.0 - 45.0 fL 08/04/2024 6:[address] [facility] RDW coefficient of variation 14.3(H) 11.4 - 13.8 % 08/04/2024 6:[address] [facility] NRBC% auto 0.0 % 08/04/2024 6:[address] [facility] NRBC Absolute <0.01 <0.01 x10(3)/mc L 08/04/2024 6:[address] [facility] Neutrophil % 72.1 % 08/04/2024 6:[address] [facility] Neutrophil Absolute (ANC) - Automated 5.24 1.70 - 6.10 x10(3)/mc L 08/04/2024 6:[address] [facility] Lymph % 16.8 % 08/04/2024 6:[address] [facility] Lymph Absolute 1.22 0.90 - 3.20 x10(3)/mc L 08/04/2024 6:[address] [facility] Monocyte % 8.5 % 08/04/2024 6:[address] [facility] Monocyte Absolute 0.62 0.30 - 0.90 x10(3)/mc L 08/04/2024 6:[address] [facility] Eos % 1.9 % 08/04/2024 6:[address] [facility] Eos Absolute 0.14 0.00 - 0.40 x10(3)/mc L 08/04/2024 6:[address] [facility] Basophil % 0.4 % 08/04/2024 6:[address] [facility] Baso Absolute <0.04 0.00 - 0.10 x10(3)/mc L 08/04/2024 6:[address] [facility] Immature Gran % 0.3 % 6:[address] [facility] Immature Gran Absolute <0.04 0.00 - 0.04 x10(3)/mc L 08/04/2024 6:39 AM EST [facility] Blood VENOUS BLOOD SPECIMEN / Unknown Venipuncture / Unknown 08/04/2024 6:08 AM EST 08/04/2024 6:19 AM EST Bridgette Stauffer MD HEMATOLOGY ORDERABLE S Performing Organization Address City/[facility]/ZIP Co de Phone Number [facility] [place] [address] * Magnesium (08/04/2024 6:08 AM EST) Magnesium 0.85 0.69 - 1.07 mMol/L 08/04/2024 7:[address] [facility] Blood VENOUS BLOOD SPECIMEN / Unknown Venipuncture / Unknown 08/04/2024 6:08 AM EST 08/04/2024 6:19 AM EST Bridgette Stauffer MD CHEMISTRY ORDERABLES Performing Organization Address City/[facility]/ZIP Co de Phone Number [facility] [place] [address] * Basic Metabolic Panel (08/04/2024 6:08 AM EST) Glucose 93 65 - 199 mg/dL 08/04/2024 7:[address] [facility] Comment:Glucose Concentratio n >=200 mg/dL plus symptoms is consistent with Diabetes Mellitus. Blood Urea Nitrogen 14 10 - 20 mg/dL 08/04/2024 7:[address] [facility] Creatinine 1.07 0.80 - 1.50 mg/dL 08/04/2024 7:[address] [facility] Sodium 138 135 - 145 mMol/L 08/04/2024 7:[address] [facility] Potassium 4.3 3.5 - 5.0 mMol/L 08/04/2024 7:[address] [facility] Chloride 107 98 - 107 mMol/L 08/04/2024 7:[address] [facility] Carbon Dioxide 23 22 - 31 mMol/L 08/04/2024 7:07 AM EST [facility] Anion Gap 8 5 - 15 mMol/L 08/04/2024 7:07 AM EST [facility] Calcium 8.5 8.5 - 10.5 mg/dL 08/04/2024 7:07 AM EST [facility] Est Glomerular Filtration Rate - Male 74 mL/min/1. 73 m?? 08/04/2024 7:07 AM EST [facility] Comment: This patient's estimated GFR [...] AM EST Bridgette Stauffer MD CHEMISTRY ORDERABLES [facility] [place] [address] * (ABNORMAL) CBC (with Diff) (08/03/2024 5:16 AM EST) White Blood Cell 7.85 4.00 - 9.50 x10(3)/mc L 08/03/2024 5:29 AM EST [facility] Red Blood Cell 4.43(L) 4.58 - 5.54 x10(6)/mc L 08/03/2024 5:29 AM EST [facility] Hemoglobin 11.8(L) 13.7 - 16.5 g/dL 08/03/2024 5:29 AM EST [facility] Hematocrit 35.9(L) 40.5 - 48.5 % 08/03/2024 5:[address] [facility] Mean Cell Volume 81.0(L) 82.9 - 93.1 fL 08/03/2024 5:[address] [facility] Mean Cell Hemoglobin 26.6(L) 27.5 - 32.1 pg 08/03/2024 5:[address] [facility] Mean Cell Hemoglobin Concentration 32.9 32.0 - 35.7 g/dL 08/03/2024 5:[address] [facility] Platelet 142(L) 145 - 357 x10(3)/mc L 08/03/2024 5:[address] [facility] Mean Platelet Volume 10.5 7.6 - 12.9 fL 08/03/2024 5:[address] [facility] RDW Standard Deviation 42.5 36.0 - 45.0 fL 08/03/2024 5:[address] [facility] RDW coefficient of variation 14.2(H) 11.4 - 13.8 % 08/03/2024 5:[address] [facility] NRBC% auto 0.0 % 08/03/2024 5:[address] [facility] NRBC Absolute <0.01 <0.01 x10(3)/mc L 08/03/2024 5:[address] [facility] Neutrophil % 75.2 % 08/03/2024 5:[address] [facility] Neutrophil Absolute (ANC) - Automated 5.91 1.70 - 6.10 x10(3)/mc L 08/03/2024 5:[address] [facility] Lymph % 13.4 % 08/03/2024 5:[address] [facility] Lymph Absolute 1.05 0.90 - 3.20 x10(3)/mc L 08/03/2024 5:[address] [facility] Monocyte % 9.0 % 08/03/2024 5:[address] [facility] Monocyte Absolute 0.71 0.30 - 0.90 x10(3)/mc L 08/03/2024 5:[address] [facility] Eos % 1.7 % 08/03/2024 5:[address] [facility] Eos Absolute 0.13 0.00 - 0.40 x10(3)/mc L 08/03/2024 5:[address] [facility] Basophil % 0.4 % 08/03/2024 5:[address] [facility] Baso Absolute <0.04 0.00 - 0.10 x10(3)/mc L 08/03/2024 5:[address] [facility] Immature Gran % 0.3 % 5:[address] [facility] Immature Gran Absolute <0.04 0.00 - 0.04 x10(3)/mc L 08/03/2024 5:[address] [facility] Blood VENOUS BLOOD SPECIMEN / Unknown Venipuncture / Unknown 08/03/2024 5:16 AM EST 08/03/2024 5:23 AM EST Bridgette Stauffer MD HEMATOLOGY ORDERABLE S [facility] [place] [address] * Magnesium (08/03/2024 5:16 AM EST) Magnesium 0.89 0.69 - 1.07 mMol/L 08/03/2024 5:[address] [facility] Blood VENOUS BLOOD SPECIMEN / Unknown Venipuncture / Unknown 08/03/2024 5:16 AM EST 08/03/2024 5:23 AM EST Bridgette Stauffer MD CHEMISTRY ORDERABLES [facility] [place] [address] * (ABNORMAL) Basic Metabolic Panel (08/03/2024 5:16 AM EST) Glucose 98 65 - 199 mg/dL 08/03/2024 5:[address] [facility] Comment:Glucose Concentratio n >=200 mg/dL plus symptoms is consistent with Diabetes Mellitus. Blood Urea Nitrogen 16 10 - 20 mg/dL 08/03/2024 5:[address] [facility] Creatinine 0.85 0.80 - 1.50 mg/dL 08/03/2024 5:[address] [facility] Sodium 137 135 - 145 mMol/L 08/03/2024 5:[address] [facility] Potassium 4.5 3.5 - 5.0 mMol/L 08/03/2024 5:[address] [facility] Chloride 106 98 - 107 mMol/L 08/03/2024 5:[address] [facility] Carbon Dioxide 21(L) 22 - 31 mMol/L 08/03/2024 5:[address] [facility] Anion Gap 10 5 - 15 mMol/L 08/03/2024 5:[address] [facility] Calcium 8.3(L) 8.5 - 10.5 mg/dL 08/03/2024 5:[address] [facility] Est Glomerular Filtration Rate - Male 92 mL/min/1. 73 m?? 08/03/2024 5:[address] [facility] Comment: This patient's estimated GFR [...] Stauffer MD CHEMISTRY ORDERABLES Performing Organization Address [facility]/ZIP Co de Phone Number [facility] [place] [address] * POC, GLUCOSE (08/02/2024 7:47 AM EST) [facility] Glucometer, POC 89 65 - 199 mg/dL 08/02/2024 7:47 AM EST [facility] Comment:Supplemental ranges: <140 mg/dL before meals <180 mg/dL all other times of the day. Blood CAPILLARY BLOOD / Unknown 08/02/2024 7:47 AM EST 08/02/2024 7:47 AM EST Krystal Parker MD POINT OF CARE TEST O RDERABLES Performing Organization Address [facility] Co de Phone Number [facility] [place] [address] * (ABNORMAL) CBC (with Diff) (08/02/2024 4:20 AM EST) [facility] White Blood Cell 8.51 4.00 - 9.50 x10(3)/mc L 08/02/2024 4:[address] [facility] Red Blood Cell 4.41(L) 4.58 - 5.54 x10(6)/mc L 08/02/2024 4:[address] [facility] Hemoglobin 12.2(L) 13.7 - 16.5 g/dL 08/02/2024 4:[address] [facility] Hematocrit 35.8(L) 40.5 - 48.5 % 08/02/2024 4:[address] [facility] Mean Cell Volume 81.2(L) 82.9 - 93.1 fL 08/02/2024 4:[address] [facility] Mean Cell Hemoglobin 27.7 27.5 - 32.1 pg 08/02/2024 4:[address] [facility] Mean Cell Hemoglobin Concentration 34.1 32.0 - 35.7 g/dL 08/02/2024 4:[address] [facility] Platelet 111(L) 145 - 357 x10(3)/mc L 08/02/2024 4:[address] [facility] Mean Platelet Volume 11.1 7.6 - 12.9 fL 08/02/2024 4:[address] [facility] RDW Standard Deviation 41.9 36.0 - 45.0 fL 08/02/2024 4:[address] [facility] RDW coefficient of variation 14.1(H) 11.4 - 13.8 % 08/02/2024 4:[address] [facility] NRBC% auto 0.0 % 08/02/2024 4:[address] [facility] NRBC Absolute <0.01 <0.01 x10(3)/mc L 08/02/2024 4:[address] [facility] Neutrophil % 77.7 % 08/02/2024 4:[address] [facility] Neutrophil Absolute (ANC) - Automated 6.62(H) 1.70 - 6.10 x10(3)/mc L 08/02/2024 4:[address] [facility] Lymph % 11.9 % 08/02/2024 4:[address] [facility] Lymph Absolute 1.01 0.90 - 3.20 x10(3)/mc L 08/02/2024 4:[address] [facility] Monocyte % 8.2 % 08/02/2024 4:[address] [facility] Monocyte Absolute 0.70 0.30 - 0.90 x10(3)/mc L 08/02/2024 4:[address] [facility] Eos % 1.4 % 08/02/2024 4:[address] [facility] Eos Absolute 0.12 0.00 - 0.40 x10(3)/mc L 08/02/2024 4:50 AM EST [facility] Basophil % 0.4 % 08/02/2024 4:[address] [facility] Baso Absolute <0.04 0.00 - 0.10 x10(3)/mc L 08/02/2024 4:[address] [facility] Immature Gran % 0.4 % 4:[address] [facility] Immature Gran Absolute <0.04 0.00 - 0.04 x10(3)/mc L 08/02/2024 4:[address] [facility] Blood VENOUS BLOOD SPECIMEN / Unknown Venipuncture / Unknown 08/02/2024 4:20 AM EST 08/02/2024 4:37 AM EST Bridgette Stauffer MD HEMATOLOGY ORDERABLE S Performing Organization Address City/[facility]/ZIP Co de Phone Number [facility] [place] [address] * Magnesium (08/02/2024 4:20 AM EST) Magnesium 0.79 0.69 - 1.07 mMol/L 08/02/2024 5:[address] [facility] Blood VENOUS BLOOD SPECIMEN / Unknown Venipuncture / Unknown 08/02/2024 4:20 AM EST 08/02/2024 4:37 AM EST Bridgette Stauffer MD CHEMISTRY ORDERABLES [facility] [place] [address] * (ABNORMAL) Basic Metabolic Panel (08/02/2024 4:20 AM EST) Glucose 110 65 - 199 mg/dL 08/02/2024 5:[address] [facility] Comment:Glucose Concentratio n >=200 mg/dL plus symptoms is consistent with Diabetes Mellitus. Blood Urea Nitrogen 12 10 - 20 mg/dL 08/02/2024 5:[address] [facility] Creatinine 0.90 0.80 - 1.50 mg/dL 08/02/2024 5:[address] [facility] Sodium 139 135 - 145 mMol/L 08/02/2024 5:[address] [facility] Potassium 4.0 3.5 - 5.0 mMol/L 08/02/2024 5:[address] [facility] Chloride 108(H) 98 - 107 mMol/L 08/02/2024 5:[address] [facility] Carbon Dioxide 23 22 - 31 mMol/L 08/02/2024 5:[address] [facility] Anion Gap 8 5 - 15 mMol/L 08/02/2024 5:[address] [facility] Calcium 8.1(L) 8.5 - 10.5 mg/dL 08/02/2024 5:[address] [facility] Est Glomerular Filtration Rate - Male 91 mL/min/1. 73 m?? 08/02/2024 5:[address] [facility] Comment: This patient's estimated GFR [...] AM EST Bridgette Stauffer MD CHEMISTRY ORDERABLES [facility] [place] [address] * Potassium (08/01/2024 8:39 PM EST) Potassium 4.0 3.5 - 5.0 mMol/L 08/01/2024 9:21 PM EST [facility] Blood VENOUS BLOOD SPECIMEN / Unknown Venipuncture / Unknown 08/01/2024 8:39 PM EST 08/01/2024 8:51 PM EST Aubree Silverio MD CHEMISTRY ORDERABL ES Performing Organization Address City/[facility]/ZIP Co de Phone Number [facility] [place] [address] * POC, GLUCOSE (08/01/2024 8:35 PM EST) Glucometer, POC 112 65 - 199 mg/dL 08/01/2024 8:36 PM EST [facility] Comment:Supplemental ranges: <140 mg/dL before meals <180 mg/dL all other times of the day. Blood CAPILLARY BLOOD / Unknown 08/01/2024 8:35 PM EST 08/01/2024 8:36 PM EST Krystal Parker MD POINT OF CARE TEST O RDKAY Performing Organization Address [facility] Co de Phone Number [facility] [place] [address] * POC, GLUCOSE (08/01/2024 4:55 PM EST) Glucometer, POC 99 65 - 199 mg/dL 08/01/2024 4:56 PM EST [facility] Comment:Supplemental ranges: <140 mg/dL before meals <180 mg/dL all other times of the day. Blood CAPILLARY BLOOD / Unknown 08/01/2024 4:55 PM EST 08/01/2024 4:56 PM EST Krystal Parker MD POINT OF CARE TEST O RDKAY Performing Organization Address City/[facility]/ZIP Co de Phone Number [facility] [place] [address] * POC, GLUCOSE (08/01/2024 12:42 PM EST) Glucometer, POC 130 65 - 199 mg/dL 08/01/2024 12:43 PM EST [facility] Comment:Supplemental ranges: <140 mg/dL before meals <180 mg/dL all other times of the day. Blood CAPILLARY BLOOD / Unknown 08/01/2024 12:42 PM EST 08/01/2024 12:43 PM EST Krystal Parker MD POINT OF CARE TEST O RDERASHAY [facility] [place] [address] * (ABNORMAL) Cooximetry, POC (08/01/2024 10:45 AM EST) Pathologist [facility] pO2, Coox 32 mmHg 08/01/2024 10:[address] [facility] Hemoglobin, Coox 12.9(L) 13.7 - 16.5 g/dL 08/01/2024 10:[address] [facility] Oxyhemoglobin, Coox 66.7 % 08/01/2024 10:[address] [facility] Carboxyhemoglo bin, Coox 1.1 % 08/01/2024 10:[address] [facility] Comment: Nonsmokers: 0.5-1.5% COHB ?? Smokers: Variable ??but usually less than 10% ?? Toxic: 20-30% COHB ?? Lethal: Greater than 60% COHB Methemoglobin, Coox 0.3 <=1.5 % 08/01/2024 10:[address] [facility] Blood (Mixed Venous) 08/01/2024 10:45 AM EST 08/01/2024 10:48 AM EST Krystal Parker MD POINT OF CARE TEST O RDERABLES Performing Organization Address City/[facility]/ZIP Co de Phone Number [facility] [place] [address] * Potassium (08/01/2024 8:20 AM EST) Pathologist [facility] Potassium 4.0 3.5 - 5.0 mMol/L 08/01/2024 10:17 AM EST [facility] Blood ARTERIAL BLOOD / Unknown Venipuncture / Unknown 08/01/2024 8:20 AM EST 08/01/2024 8:30 AM EST Aubree Silverio MD CHEMISTRY ORDERABL ES Performing Organization Address City/[facility]/ZIP Co de Phone Number [facility] [place] [address] * POC, GLUCOSE (08/01/2024 7:44 AM EST) [facility] Glucometer, POC 86 65 - 199 mg/dL 08/01/2024 7:44 AM EST [facility] Comment:Supplemental ranges: <140 mg/dL before meals <180 mg/dL all other times of the day. Blood CAPILLARY BLOOD / Unknown 08/01/2024 7:44 AM EST 08/01/2024 7:44 AM EST Krystal Parker MD POINT OF CARE TEST O RDERABLES Performing Organization Address City/[facility]/ZIP Co de Phone Number [facility] [place] [address] * (ABNORMAL) CBC (with Diff) (08/01/2024 4:18 AM EST) [facility] White Blood Cell 8.51 4.00 - 9.50 x10(3)/mc L 08/01/2024 4:53 AM EST [facility] Red Blood Cell 4.12(L) 4.58 - 5.54 x10(6)/mc L 08/01/2024 4:53 AM EST [facility] Hemoglobin 11.2(L) 13.7 - 16.5 g/dL 08/01/2024 4:53 AM EST [facility] Hematocrit 33.8(L) 40.5 - 48.5 % 08/01/2024 4:[address] [facility] Mean Cell Volume 82.0(L) 82.9 - 93.1 fL 08/01/2024 4:[address] [facility] Mean Cell Hemoglobin 27.2(L) 27.5 - 32.1 pg 08/01/2024 4:[address] [facility] Mean Cell Hemoglobin Concentration 33.1 32.0 - 35.7 g/dL 08/01/2024 4:[address] [facility] Platelet 94(L) 145 - 357 x10(3)/mc L 08/01/2024 4:[address] [facility] Mean Platelet Volume 10.9 7.6 - 12.9 fL 08/01/2024 4:[address] [facility] RDW Standard Deviation 44.2 36.0 - 45.0 fL 08/01/2024 4:[address] [facility] RDW coefficient of variation 14.7(H) 11.4 - 13.8 % 08/01/2024 4:[address] [facility] NRBC% auto 0.0 % 08/01/2024 4:[address] [facility] NRBC Absolute <0.01 <0.01 x10(3)/mc L 08/01/2024 4:[address] [facility] Neutrophil % 82.7 % 08/01/2024 4:[address] [facility] Neutrophil Absolute (ANC) - Automated 7.04(H) 1.70 - 6.10 x10(3)/mc L 08/01/2024 4:[address] [facility] Lymph % 8.6 % 08/01/2024 4:[address] [facility] Lymph Absolute 0.73(L) 0.90 - 3.20 x10(3)/mc L 08/01/2024 4:[address] [facility] Monocyte % 7.6 % 08/01/2024 4:[address] [facility] Monocyte Absolute 0.65 0.30 - 0.90 x10(3)/mc L 08/01/2024 4:[address] [facility] Eos % 0.5 % 08/01/2024 4:[address] [facility] Eos Absolute 0.04 0.00 - 0.40 x10(3)/mc L 08/01/2024 4:[address] [facility] Basophil % 0.2 % 08/01/2024 4:[address] [facility] Baso Absolute <0.04 0.00 - 0.10 x10(3)/mc L 08/01/2024 4:[address] [facility] Immature Gran % 0.4 % 4:[address] [facility] Immature Gran Absolute <0.04 0.00 - 0.04 x10(3)/mc L 08/01/2024 4:[address] [facility] Blood VENOUS BLOOD SPECIMEN / Unknown Venipuncture / Unknown 08/01/2024 4:18 AM EST 08/01/2024 4:29 AM EST Bridgette Stauffer MD HEMATOLOGY ORDERABLE S [facility] [place] [address] * Magnesium (08/01/2024 4:18 AM EST) Magnesium 0.74 0.69 - 1.07 mMol/L 08/01/2024 5:[address] [facility] Blood VENOUS BLOOD SPECIMEN / Unknown Venipuncture / Unknown 08/01/2024 4:18 AM EST 08/01/2024 4:29 AM EST Bridgette Stauffer MD CHEMISTRY ORDERABLES [facility] [place] [address] * (ABNORMAL) Basic Metabolic Panel (08/01/2024 4:18 AM EST) Glucose 107 65 - 199 mg/dL 08/01/2024 5:[address] [facility] Comment:Glucose Concentratio n >=200 mg/dL plus symptoms is consistent with Diabetes Mellitus. Blood Urea Nitrogen 8(L) 10 - 20 mg/dL 08/01/2024 5:[address] [facility] Creatinine 0.82 0.80 - 1.50 mg/dL 08/01/2024 5:[address] [facility] Sodium 137 135 - 145 mMol/L 08/01/2024 5:[address] [facility] Potassium 3.9 3.5 - 5.0 mMol/L 08/01/2024 5:[address] [facility] Chloride 108(H) 98 - 107 mMol/L 08/01/2024 5:[address] [facility] Carbon Dioxide 21(L) 22 - 31 mMol/L 08/01/2024 5:[address] [facility] Anion Gap 8 5 - 15 mMol/L 08/01/2024 5:[address] [facility] Calcium 7.7(L) 8.5 - 10.5 mg/dL 08/01/2024 5:[address] [facility] Est Glomerular Filtration Rate - Male 93 mL/min/1. 73 m?? 08/01/2024 5:[address] [facility] Comment: This patient's estimated GFR [...] Stauffer MD CHEMISTRY ORDERABLES Performing Organization Address [facility] de Phone Number [facility] [place] [address] * POC, GLUCOSE (07/31/2024 8:41 PM EST) [facility] Signature Glucometer, POC 73 65 - 199 mg/dL 07/31/2024 8:41 PM EST [facility] Comment:Supplemental ranges: <140 mg/dL before meals <180 mg/dL all other times of the day. Blood CAPILLARY BLOOD / Unknown 07/31/2024 8:41 PM EST 07/31/2024 8:41 PM EST Krystal Parker MD POINT OF CARE TEST O RDERABLES Performing Organization Address [facility] de Phone Number [facility] [place] [address] * CARDIAC CATHETERIZATION (07/31/2024 5:53 PM EST) Anatomical Region Laterality Modality Other Narrative 08/01/2024 12:37 PM EST ?[facility] ? Cardiac Catheterization/Intervention Report ? Patient Name: Korey MontoyaToby ? Procedure Date: 07/31/2024 ? A #: [id number] ? Primary Physician: Maldonado Luis ? Case #: [id number] ? File Name: [id number] ? Catheterization Order Number: [id number] ? [facility] ? Final Report [place], [place] ? Patient Name: ? Korey P. Montoya ?ID#: ?[id number] ? : ?1950 ? Procedure Date: ? [...] ? Comments: ?Impella removed from the right MACHINE FORMER with deployment of Per[employer] and ?[employer]giose[employer]. ??Good [...] Procedure Note Maldonado Luis MD - 08/01/2024 [facility] Cardiac Catheterization/Intervention Report Patient Name: Korey MontoyaoTby Procedure Date: 07/31/2024 A #: [id number] Primary Physician: Maldonado Luis Case #: [id number] File Name: [id number] Catheterization Order Number: [id number] [facility] FinalReport [place], [place] Patient Name: Korey Montoya ID#:[id number] :1950 Procedure Date: July 31, 2024 Case [...] was designated as ASA Class IV. The [facility] clinical frailtyscale is 4: Vulnerable. Diagnostic [...] procedures. Comments: Impella removed from the right MACHINE FORMER with deployment of [employer] and Angiose[employer]. Good [...] * POC, GLUCOSE (07/31/2024 11:04 AM EST) Glucometer, POC 82 65 - 199 mg/dL 07/31/2024 11:04 AM EST [facility] Comment:Supplemental ranges: <140 mg/dL before meals <180 mg/dL all other times of the day. Blood CAPILLARY BLOOD / Unknown 07/31/2024 11:04 AM EST 07/31/2024 11:04 AM EST Krystal Parker MD POINT OF CARE TEST O RDERABLES Performing Organization Address City/State/[facility] Co de Phone Number [facility] [place] [address] * (ABNORMAL) Blood Gas, Arterial POC (07/31/2024 8:29 AM EST) pH, Arterial 7.48(H) 7.35 - 7.45 07/31/2024 8:[address] [facility] PCO2, Arterial 29(L) 35 - 45 mmHg 07/31/2024 8:[address] [facility] PO2, Arterial 71(L) 85 - 104 mmHg 07/31/2024 8:[address] [facility] Bicarbonate, Arterial 20.6 20.0 - 26.0 mmol/L 07/31/2024 8:[address] [facility] Base Excess, Arterial -3.0 -3.0 - 3.0 mmol/L 07/31/2024 8:[address] [facility] Hemoglobin, Arterial 12.3(L) 13.7 - 16.5 g/dL 07/31/2024 8:[address] [facility] Oxyhemoglobin, Arterial 94.4 94.0 - 97.0 % 07/31/2024 8:[address] [facility] Carboxyhemoglobin , Arterial 0.7 % 07/31/2024 8:[address] [facility] Comment: Nonsmokers: 0.5-1.5% COHB ?? Smokers: Variable ??but usually less than 10% ?? Toxic: 20-30% COHB ?? Lethal: Greater than 60% COHB Methemoglobin, Arterial 0.3 <=1.5 % 07/31/2024 8:[address] [facility] Sodium, Arterial 138 135 - 145 mmol/L 07/31/2024 8:[address] [facility] Potassium, Arterial 3.5 3.5 - 5.0 mmol/L 07/31/2024 8:[address] [facility] Chloride, Arterial 109(H) 98 - 107 mmol/L 07/31/2024 8:[address] [facility] Lactate, Arterial 0.8 0.5 - 2.2 mmol/L 07/31/2024 8:[address] [facility] Fraction of Inspired Oxygen 21 % 07/31/2024 8:[address] [facility] PF Ratio 338 Ratio 07/31/2024 8:[address] [facility] Comment:PF ratio calculated using the non-temperature corrected pO2 result. IONIZED CALCIUM, ARTERIAL 1.08(L) 1.15 - 1.33 mmol/L 07/31/2024 8:[address] [facility] Glucose, Arterial 86 65 - 199 mg/dL 07/31/2024 8:30 AM EST [facility] Comment:Glucose Concentratio n >=200 mg/dL plus symptoms is consistent with Diabetes Mellitus. Blood ARTERIAL BLOOD / Unknown 07/31/2024 8:29 AM EST 07/31/2024 8:30 AM EST Krystal Parker MD POINT OF CARE TEST O RDERABLES [facility] [place] [address] * POC, GLUCOSE (07/31/2024 7:47 AM EST) Glucometer, POC 82 65 - 199 mg/dL 07/31/2024 7:53 AM EST [facility] Comment:Supplemental ranges: <140 mg/dL before meals <180 mg/dL all other times of the day. Blood CAPILLARY BLOOD / Unknown 07/31/2024 7:47 AM EST 07/31/2024 7:53 AM EST Krystal Parker MD POINT OF CARE TEST O RDERABLES [facility] [place] [address] * (ABNORMAL) CBC (with Diff) (07/31/2024 1:08 AM EST) [facility] White Blood Cell 10.25(H) 4.00 - 9.50 x10(3)/mc L 07/31/2024 1:[address] [facility] Red Blood Cell 4.13(L) 4.58 - 5.54 x10(6)/mc L 07/31/2024 1:[address] [facility] Hemoglobin 11.2(L) 13.7 - 16.5 g/dL 07/31/2024 1:[address] [facility] Hematocrit 33.9(L) 40.5 - 48.5 % 07/31/2024 1:[address] [facility] Mean Cell Volume 82.1(L) 82.9 - 93.1 fL 07/31/2024 1:[address] [facility] Mean Cell Hemoglobin 27.1(L) 27.5 - 32.1 pg 07/31/2024 1:[address] [facility] Mean Cell Hemoglobin Concentration 33.0 32.0 - 35.7 g/dL 07/31/2024 1:[address] [facility] Platelet 109(L) 145 - 357 x10(3)/mc L 07/31/2024 1:[address] [facility] Mean Platelet Volume 10.4 7.6 - 12.9 fL 07/31/2024 1:[address] [facility] RDW Standard Deviation 45.1(H) 36.0 - 45.0 fL 07/31/2024 1:[address] [facility] RDW coefficient of variation 15.1(H) 11.4 - 13.8 % 07/31/2024 1:[address] [facility] NRBC% auto 0.0 % 07/31/2024 1:[address] [facility] NRBC Absolute <0.01 <0.01 x10(3)/mc L 07/31/2024 1:[address] [facility] Neutrophil % 79.7 % 07/31/2024 1:[address] [facility] Neutrophil Absolute (ANC) - Automated 8.17(H) 1.70 - 6.10 x10(3)/mc L 07/31/2024 1:[address] [facility] Lymph % 12.8 % 07/31/2024 1:[address] [facility] Lymph Absolute 1.31 0.90 - 3.20 x10(3)/mc L 07/31/2024 1:[address] [facility] Monocyte % 6.9 % 07/31/2024 1:[address] [facility] Monocyte Absolute 0.71 0.30 - 0.90 x10(3)/mc L 07/31/2024 1:[address] [facility] Eos % 0.1 % 07/31/2024 1:[address] [facility] Eos Absolute <0.04 0.00 - 0.40 x10(3)/mc L 07/31/2024 1:[address] [facility] Basophil % 0.3 % 07/31/2024 1:[address] [facility] Baso Absolute <0.04 0.00 - 0.10 x10(3)/mc L 07/31/2024 1:[address] [facility] Immature Gran % 0.2 % 1:28 AM EST [facility] Immature Gran Absolute <0.04 0.00 - 0.04 x10(3)/mc L 07/31/2024 1:[address] [facility] Blood VENOUS BLOOD SPECIMEN / Unknown Venipuncture / Unknown 07/31/2024 1:08 AM EST 07/31/2024 1:18 AM EST Bridgette Stauffer MD HEMATOLOGY ORDERABLE S Performing Organization Address [facility] Co de Phone Number [facility] [place] [address] * Magnesium (07/31/2024 1:08 AM EST) Pathologist [facility] Magnesium 0.89 0.69 - 1.07 mMol/L 07/31/2024 1:[address] [facility] Blood VENOUS BLOOD SPECIMEN / Unknown Venipuncture / Unknown 07/31/2024 1:08 AM EST 07/31/2024 1:18 AM EST Bridgette Stauffer MD CHEMISTRY ORDERABLES Performing Organization Address City/[facility] Co de Phone Number [facility] [place] [address] * (ABNORMAL) Basic Metabolic Panel (07/31/2024 1:08 AM EST) Pathologist [facility] Glucose 97 65 - 199 mg/dL 07/31/2024 1:[address] [facility] Comment:Glucose Concentratio n >=200 mg/dL plus symptoms is consistent with Diabetes Mellitus. Blood Urea Nitrogen 11 10 - 20 mg/dL 07/31/2024 1:[address] [facility] Creatinine 0.96 0.80 - 1.50 mg/dL 07/31/2024 1:[address] [facility] Sodium 140 135 - 145 mMol/L 07/31/2024 1:[address] [facility] Potassium 4.1 3.5 - 5.0 mMol/L 07/31/2024 1:46 AM EST [facility] Chloride 110(H) 98 - 107 mMol/L 07/31/2024 1:46 AM EST [facility] Carbon Dioxide 24 22 - 31 mMol/L 07/31/2024 1:[address] [facility] Anion Gap 6 5 - 15 mMol/L 07/31/2024 1:[address] [facility] Calcium 7.7(L) 8.5 - 10.5 mg/dL 07/31/2024 1:[address] [facility] Est Glomerular Filtration Rate - Male 84 mL/min/1. 73 m?? 07/31/2024 1:[address] [facility] Comment: This patient's estimated GFR [...] AM EST Bridgette Stauffer MD CHEMISTRY ORDERABLES [facility] [place] [address] * (ABNORMAL) Hepatic Function Panel (07/31/2024 1:08 AM EST) Albumin 3.1(L) 3.2 - 5.2 g/dL 07/31/2024 1:46 AM EST [facility] Aspartate Aminotransferase 192(H) <=39 unit/L 07/31/2024 1:46 AM EST [facility] Alanine Aminotransferase 59(H) 0 - 55 unit/L 07/31/2024 1:46 AM EST [facility] Alkaline Phosphatase 46 40 - 130 unit/L 07/31/2024 1:[address] [facility] Bilirubin, Total 0.4 <=1.3 mg/dL 07/31/2024 1:[address] [facility] Bilirubin, Direct <0.2 0.0 - 0.3 mg/dL 07/31/2024 1:[address] [facility] Protein, Total 5.0(L) 6.1 - 8.0 g/dL 07/31/2024 1:[address] [facility] Blood VENOUS BLOOD SPECIMEN / Unknown Venipuncture / Unknown 07/31/2024 1:08 AM EST 07/31/2024 1:18 AM EST Krystal Parker MD CHEMISTRY ORDERABLES Performing Organization Address City/[facility] Co de Phone Number [facility] [place] [address] * POC, GLUCOSE (07/30/2024 8:03 PM EST) Glucometer, POC 86 65 - 199 mg/dL 07/30/2024 8:03 PM EST [facility] Comment:Supplemental ranges: <140 mg/dL before meals <180 mg/dL all other times of the day. Blood CAPILLARY BLOOD / Unknown 07/30/2024 8:03 PM EST 07/30/2024 8:03 PM EST Krystal Parker MD POINT OF CARE TEST O RDERABLES Performing Organization Address City/[facility]/ZIP Co de Phone Number [facility] [place] [address] * Potassium (07/30/2024 8:03 PM EST) Potassium 3.8 3.5 - 5.0 mMol/L 07/30/2024 9:13 PM EST [facility] Blood VENOUS BLOOD SPECIMEN / Unknown Venipuncture / Unknown 07/30/2024 8:03 PM EST 07/30/2024 8:22 PM EST Aubree Silverio MD CHEMISTRY ORDERABL ES Performing Organization Address [facility]/ZIP Co de Phone Number [facility] [place] [address] * POC, GLUCOSE (07/30/2024 6:23 PM EST) Glucometer, POC 93 65 - 199 mg/dL 07/30/2024 6:24 PM EST [facility] Comment:Supplemental ranges: <140 mg/dL before meals <180 mg/dL all other times of the day. Blood CAPILLARY BLOOD / Unknown 07/30/2024 6:23 PM EST 07/30/2024 6:24 PM EST Krystal Parker MD POINT OF CARE TEST O JOSH Performing Organization Address [facility] Co de Phone Number [facility] [place] [address] * POC, GLUCOSE (07/30/2024 5:08 PM EST) Glucometer, POC 78 65 - 199 mg/dL 07/30/2024 5:08 PM EST [facility] Comment:Supplemental ranges: <140 mg/dL before meals <180 mg/dL all other times of the day. Blood CAPILLARY BLOOD / Unknown 07/30/2024 5:08 PM EST 07/30/2024 5:08 PM EST Krystal Parker MD POINT OF CARE TEST O JOSH Performing Organization Address [facility] Co de Phone Number [facility] [place] [address] * (ABNORMAL) Phosphorus (07/30/2024 3:08 PM EST) Phosphorus 2.1(L) 2.5 - 4.5 mg/dL 07/30/2024 3:58 PM EST [facility] Blood VENOUS BLOOD SPECIMEN / Unknown Venipuncture / Unknown 07/30/2024 3:08 PM EST 07/30/2024 3:12 PM EST Aubree Silverio MD CHEMISTRY ORDERABL ES Performing Organization Address [facility]/ZIP Co de Phone Number [facility] [place] [address] * Magnesium (07/30/2024 3:08 PM EST) Magnesium 0.90 0.69 - 1.07 mMol/L 07/30/2024 3:58 PM EST [facility] Blood VENOUS BLOOD SPECIMEN / Unknown Venipuncture / Unknown 07/30/2024 3:08 PM EST 07/30/2024 3:12 PM EST Aubree Silverio MD CHEMISTRY ORDERABL ES Performing Organization Address City/[facility]/ZIP Co de Phone Number [facility] [place] [address] * (ABNORMAL) Basic Metabolic Panel (07/30/2024 3:08 PM EST) Glucose 105 65 - 199 mg/dL 07/30/2024 4:[address] [facility] Comment:Glucose Concentratio n >=200 mg/dL plus symptoms is consistent with Diabetes Mellitus. Blood Urea Nitrogen 13 10 - 20 mg/dL 07/30/2024 4:17 PM EST [facility] Creatinine 1.01 0.80 - 1.50 mg/dL 07/30/2024 4:[address] [facility] Sodium 141 135 - 145 mMol/L 07/30/2024 4:[address] [facility] Potassium 3.4(L) 3.5 - 5.0 mMol/L 07/30/2024 4:[address] [facility] Chloride 109(H) 98 - 107 mMol/L 07/30/2024 4:[address] [facility] Carbon Dioxide 21(L) 22 - 31 mMol/L 07/30/2024 4:17 PM EST [facility] Anion Gap 11 5 - 15 mMol/L 07/30/2024 4:17 PM EST [facility] Calcium 7.9(L) 8.5 - 10.5 mg/dL 07/30/2024 4:17 PM EST [facility] Est Glomerular Filtration Rate - Male 79 mL/min/1. 73 m?? 07/30/2024 4:17 PM EST [facility] Comment: This patient's estimated GFR [...] 3:08 PM EST 07/30/2024 3:12 PM EST Aubree Silverio MD CHEMISTRY ORDERABL ES [facility] [place] [address] * ECHO LMTD W CONTRAST W LMTD SPEC DOPP COLOR DOPP (07/30/2024 11:42 AM EST) Anatomical Region Laterality Modality Cardiac Other 07/30/2024 10:2 2 AM EST Narrative 07/30/2024 12:34 PM EST [address] [place] [address] ? Echocardiogram Report Name: KOREY MONTOYA ? Study Date: 07/30/2024 10:22 AMBP: 124/66 mmHg : 1950 ? Height: 168 cm ? Account: [id number] Age: 74 yrs ? Weight: 65 kg Gender: Male ?BSA: 1.7 m2 Ordering Physician: Aubree Silverio MD Referring Physician: CHAPARRO FERRERA Performed By: OMERO Millan Reason For Study: ST elevation myocardial infarction involving left anterior descending (LAD) coronary artery Interpreting Fellow: Ivan Hernandez. Exam Location: [facility]. Interpretation Summary Left ventricle is severely dilated. [...] Compared to the overnight study by the electronic security specialist fellow the impella position is stable. 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 Procedure Limited - 52718. Image enhancement Definity was used for both [...] Procedure Note Kathleen Banda MD - 07/30/[address] [place] [id number] Echocardiogram Report Name: KOREY MONTOYA Kyrie Study Date: 410:22 AMBP: 124/66 mmHg : 1950 Height: 168 cm Account: [id number] Age: 74 yrs Weight: 65 kg Gender: Male BSA: 1.7 m2 Ordering Physician: Aubree Silverio MD Referring Physician: CHAPARRO FERRERA Performed By: OMERO Millan Reason For Study: ST elevation myocardial infarction involving leftanterior descending (LAD) coronary artery Interpreting Fellow: Ivan Hernandez. Exam Location: [facility]. Interpretation Summary Left ventricle is severely dilated. [...] Compared to the overnight study by the electronic security specialist fellow the impella positionis stable. The global left ventricular systolic function has improvedpredominantly via recruitment outside the LAD territory which remains akinetic. Procedure Limited - 48552. Image enhancement Definity was used for both [...] Dyskinetic 3-5moderate 5 - 6-14large Aneurysmal 15-16diffuse Aubree Silverio MD ECHO ORDERABLES * POC, GLUCOSE (07/30/2024 11:17 AM EST) Glucometer, POC 97 65 - 199 mg/dL 07/30/2024 11:[address] [facility] Comment:Supplemental ranges: <140 mg/dL before meals <180 mg/dL all other times of the day. Blood CAPILLARY BLOOD / Unknown 07/30/2024 11:17 AM EST 07/30/2024 11:17 AM EST Aubree Silverio MD POINT OF CARE TEST ORDERABLES Performing Organization Address City/State/[facility] Co de Phone Number [facility] [place] [address] * (ABNORMAL) Blood Gas, Arterial POC (07/30/2024 8:16 AM EST) pH, Arterial 7.44 7.35 - 7.45 07/30/2024 8:[address] [facility] PCO2, Arterial 29(L) 35 - 45 mmHg 07/30/2024 8:[address] [facility] PO2, Arterial 109(H) 85 - 104 mmHg 07/30/2024 8:[address] [facility] Bicarbonate, Arterial 19.4(L) 20.0 - 26.0 mmol/L 07/30/2024 8:[address] [facility] Base Excess, Arterial -4.7(L) -3.0 - 3.0 mmol/L 07/30/2024 8:[address] [facility] Hemoglobin, Arterial 12.2(L) 13.7 - 16.5 g/dL 07/30/2024 8:[address] [facility] Oxyhemoglobin, Arterial 97.1(H) 94.0 - 97.0 % 07/30/2024 8:[address] [facility] Carboxyhemoglob in, Arterial 1.0 % 07/30/2024 8:[address] [facility] Comment: Nonsmokers: 0.5-1.5% COHB ?? Smokers: Variable ??but usually less than 10% ?? Toxic: 20-30% COHB ?? Lethal: Greater than 60% COHB Methemoglobin, Arterial 0.1 <=1.5 % 07/30/2024 8:[address] [facility] Sodium, Arterial 132(L) 135 - 145 mmol/L 07/30/2024 8:[address] [facility] Potassium, Arterial 3.9 3.5 - 5.0 mmol/L 07/30/2024 8:[address] [facility] Chloride, Arterial 105 98 - 107 mmol/L 07/30/2024 8:[address] [facility] Lactate, Arterial 1.2 0.5 - 2.2 mmol/L 07/30/2024 8:[address] [facility] Fraction of Inspired Oxygen 21 % 07/30/2024 8:[address] [facility] PF Ratio 519 Ratio 07/30/2024 8:[address] [facility] Comment:PF ratio calculated using the non-temperature corrected pO2 result. IONIZED CALCIUM, ARTERIAL 1.15 1.15 - 1.33 mmol/L 07/30/2024 8:[address] [facility] Blood ARTERIAL BLOOD / Unknown 07/30/2024 8:16 AM EST 07/30/2024 8:17 AM EST Aubree Silverio MD POINT OF CARE TEST ORDERABLES [facility] [place] [address] * (ABNORMAL) Troponin - Single (07/30/2024 8:09 AM EST) Troponin-T, High Sensitivity 8,651(H) <=22 ng/L 07/30/2024 9:06 AM EST [facility] Comment: This patient's troponin T concentration [...] troponin value can be found in the [facility] Test Catalog Troponin - https://[facility]testcatalog.org/catalogs/565/files/44336 Reference: [place] Definition of Myocardial Infarction. Journal of the [place] [employer] 2018;72:7670-0765 Blood VENOUS BLOOD SPECIMEN / Unknown Venipuncture / Unknown 07/30/2024 8:09 AM EST 07/30/2024 8:26 AM EST Aubree Silverio MD CHEMISTRY ORDERABL ES [facility] [place] [address] * POC, GLUCOSE (07/30/2024 7:40 AM EST) Shaheen Jc Glucometer, POC 111 65 - 199 mg/dL 07/30/2024 7:40 AM EST [facility] Comment:Supplemental ranges: <140 mg/dL before meals <180 mg/dL all other times of the day. Blood CAPILLARY BLOOD / Unknown 07/30/2024 7:40 AM EST 07/30/2024 7:40 AM EST Aubree Silverio MD POINT OF CARE TEST ORDERABLES [facility] [place] [address] * (ABNORMAL) CBC (with Diff) (07/30/2024 2:11 AM EST) White Blood Cell 11.25(H) 4.00 - 9.50 x10(3)/mc L 07/30/2024 2:[address] [facility] Red Blood Cell 4.50(L) 4.58 - 5.54 x10(6)/mc L 07/30/2024 2:[address] [facility] Hemoglobin 12.2(L) 13.7 - 16.5 g/dL 07/30/2024 2:[address] [facility] Hematocrit 37.1(L) 40.5 - 48.5 % 07/30/2024 2:[address] [facility] Mean Cell Volume 82.4(L) 82.9 - 93.1 fL 07/30/2024 2:[address] [facility] Mean Cell Hemoglobin 27.1(L) 27.5 - 32.1 pg 07/30/2024 2:[address] [facility] Mean Cell Hemoglobin Concentration 32.9 32.0 - 35.7 g/dL 07/30/2024 2:[address] [facility] Platelet 166 145 - 357 x10(3)/mc L 07/30/2024 2:[address] [facility] Mean Platelet Volume 10.6 7.6 - 12.9 fL 07/30/2024 2:[address] [facility] RDW Standard Deviation 44.6 36.0 - 45.0 fL 07/30/2024 2:[address] [facility] RDW coefficient of variation 14.6(H) 11.4 - 13.8 % 07/30/2024 2:[address] [facility] NRBC% auto 0.0 % 07/30/2024 2:[address] [facility] NRBC Absolute <0.01 <0.01 x10(3)/mc L 07/30/2024 2:[address] [facility] Neutrophil % 88.9 % 07/30/2024 2:[address] [facility] Neutrophil Absolute (ANC) - Automated 10.00(H) 1.70 - 6.10 x10(3)/mc L 07/30/2024 2:[address] [facility] Lymph % 5.1 % 07/30/2024 2:[address] [facility] Lymph Absolute 0.57(L) 0.90 - 3.20 x10(3)/mc L 07/30/2024 2:[address] [facility] Monocyte % 5.4 % 07/30/2024 2:[address] [facility] Monocyte Absolute 0.61 0.30 - 0.90 x10(3)/mc L 07/30/2024 2:[address] [facility] Eos % 0.0 % 07/30/2024 2:[address] [facility] Eos Absolute <0.04 0.00 - 0.40 x10(3)/mc L 07/30/2024 2:[address] [facility] Basophil % 0.2 % 07/30/2024 2:[address] [facility] Baso Absolute <0.04 0.00 - 0.10 x10(3)/mc L 07/30/2024 2:[address] [facility] Immature Gran % 0.4 % 2:[address] [facility] Immature Gran Absolute 0.05(H) 0.00 - 0.04 x10(3)/mc L 07/30/2024 2:[address] [facility] Blood VENOUS BLOOD SPECIMEN / Unknown Venipuncture / Unknown 07/30/2024 2:11 AM EST 07/30/2024 2:22 AM EST Bridgette Stauffer MD HEMATOLOGY ORDERABLE S [facility] [place] [address] * Magnesium (07/30/2024 2:11 AM EST) Magnesium 1.01 0.69 - 1.07 mMol/L 07/30/2024 2:[address] [facility] Blood VENOUS BLOOD SPECIMEN / Unknown Venipuncture / Unknown 07/30/2024 2:11 AM EST 07/30/2024 2:22 AM EST Bridgette Stauffer MD CHEMISTRY ORDERABLES Performing Organization Address City/[facility]/ZIP Co de Phone Number [facility] [place] [address] * (ABNORMAL) Basic Metabolic Panel (07/30/2024 2:11 AM EST) Pathologist [facility] Glucose 190 65 - 199 mg/dL 07/30/2024 2:[address] [facility] Comment:Glucose Concentratio n >=200 mg/dL plus symptoms is consistent with Diabetes Mellitus. Blood Urea Nitrogen 15 10 - 20 mg/dL 07/30/2024 2:[address] [facility] Creatinine 0.88 0.80 - 1.50 mg/dL 07/30/2024 2:[address] [facility] Sodium 135 135 - 145 mMol/L 07/30/2024 2:[address] [facility] Potassium 4.9 3.5 - 5.0 mMol/L 07/30/2024 2:[address] [facility] Chloride 105 98 - 107 mMol/L 07/30/2024 2:[address] [facility] Carbon Dioxide 19(L) 22 - 31 mMol/L 07/30/2024 2:[address] [facility] Anion Gap 11 5 - 15 mMol/L 07/30/2024 2:51 AM EST [facility] Calcium 7.7(L) 8.5 - 10.5 mg/dL 07/30/2024 2:51 AM EST [facility] Est Glomerular Filtration Rate - Male 91 mL/min/1. 73 m?? 07/30/2024 2:51 AM EST [facility] Comment: This patient's estimated GFR [...] AM EST Bridgette Stauffer MD CHEMISTRY ORDERABLES [facility] [place] [address] * (ABNORMAL) Cooximetry, POC (07/30/2024 1:00 AM EST) pO2, Coox 28 mmHg 07/30/2024 1:03 AM EST [facility] Hemoglobin, Coox 12.7(L) 13.7 - 16.5 g/dL 07/30/2024 1:03 AM EST [facility] Oxyhemoglobin, Coox 54.9 % 07/30/2024 1:[address] [facility] Carboxyhemoglo bin, Coox 1.0 % 07/30/2024 1:[address] [facility] Comment: Nonsmokers: 0.5-1.5% COHB ?? Smokers: Variable ??but usually less than 10% ?? Toxic: 20-30% COHB ?? Lethal: Greater than 60% COHB Methemoglobin, Coox 0.0 <=1.5 % 07/30/2024 1:[address] [facility] Blood (Mixed Venous) 07/30/2024 1:00 AM EST 07/30/2024 1:03 AM EST Aubree Silverio MD POINT OF CARE TEST ORDERABLES Performing Organization Address City/State/[facility] Co de Phone Number [facility] [place] [address] * (ABNORMAL) Blood Gas, Arterial POC (07/30/2024 12:57 AM EST) pH, Arterial 7.38 7.35 - 7.45 07/30/2024 12:[address] [facility] PCO2, Arterial 34(L) 35 - 45 mmHg 07/30/2024 12:[address] [facility] PO2, Arterial 141(H) 85 - 104 mmHg 07/30/2024 12:[address] [facility] Bicarbonate, Arterial 19.5(L) 20.0 - 26.0 mmol/L 07/30/2024 12:[address] [facility] Base Excess, Arterial -5.6(L) -3.0 - 3.0 mmol/L 07/30/2024 12:[address] [facility] Hemoglobin, Arterial 13.0(L) 13.7 - 16.5 g/dL 07/30/2024 12:[address] [facility] Oxyhemoglobin, Arterial 98.4(H) 94.0 - 97.0 % 07/30/2024 12:[address] [facility] Carboxyhemoglobin , Arterial 0.4 % 07/30/2024 12:[address] [facility] Comment: Nonsmokers: 0.5-1.5% COHB ?? Smokers: Variable ??but usually less than 10% ?? Toxic: 20-30% COHB ?? Lethal: Greater than 60% COHB Methemoglobin, Arterial 0.1 <=1.5 % 07/30/2024 12:[address] [facility] Sodium, Arterial 130(L) 135 - 145 mmol/L 07/30/2024 12:[address] [facility] Potassium, Arterial 4.5 3.5 - 5.0 mmol/L 07/30/2024 12:[address] [facility] Chloride, Arterial 104 98 - 107 mmol/L 07/30/2024 12:[address] [facility] Lactate, Arterial 1.3 0.5 - 2.2 mmol/L 07/30/2024 12:[address] [facility] Flow Rate 2.0 L/min 07/30/2024 12:[address] [facility] IONIZED CALCIUM, ARTERIAL 1.12(L) 1.15 - 1.33 mmol/L 07/30/2024 12:[address] [facility] Glucose, Arterial 184 65 - 199 mg/dL 07/30/2024 12:[address] [facility] Comment:Glucose Concentratio n >=200 mg/dL plus symptoms is consistent with Diabetes Mellitus. Blood ARTERIAL BLOOD / Unknown 07/30/2024 12:57 AM EST 07/30/2024 12:58 AM EST Aubree Silverio MD POINT OF CARE TEST ORDERABLES [facility] [place] [address] * (ABNORMAL) Troponin - Single (07/29/2024 10:31 PM EST) Troponin-T, High Sensitivity >10,000(H ) <=22 ng/L 07/29/2024 11:[address] [facility] Comment: This patient's troponin T concentration [...] troponin value can be found in the [facility] Test Catalog Troponin - https://[email or web address]testcatalog.org/catalogs/565/files/18494 Reference: [place] Definition of Myocardial Infarction. Journal of the [place] [employer] 2018;72:4313-4258 Blood VENOUS BLOOD SPECIMEN / Unknown Venipuncture / Unknown 07/29/2024 10:31 PM EST 07/29/2024 10:36 PM EST Yrn Ward MD CHEMISTRY ORDERABL ES Performing Organization Address City/[facility]/ZIP Co de Phone Number [facility] [place] [address] * Potassium (07/29/2024 8:11 PM EST) Pathologist [facility] Potassium 4.1 3.5 - 5.0 mMol/L 07/29/2024 8:52 PM EST [facility] Blood VENOUS BLOOD SPECIMEN / Unknown Venipuncture / Unknown 07/29/2024 8:11 PM EST 07/29/2024 8:16 PM EST Aubree Silverio MD CHEMISTRY ORDERABL ES [facility] [place] [address] * (ABNORMAL) Troponin - Single (07/29/2024 8:11 PM EST) Troponin-T, High Sensitivity >10,000(H ) <=22 ng/L 07/29/2024 8:52 PM EST [facility] Comment: This patient's troponin T concentration [...] troponin value can be found in the [facility] Test Catalog Troponin - https://[facility].testcatalog.org/catalogs/565/files/37706 Reference: [place] Definition of Myocardial Infarction. Journal of the [place] [employer] 2018;72:6888-7866 Blood VENOUS BLOOD SPECIMEN / Unknown Venipuncture / Unknown 07/29/2024 8:11 PM EST 07/29/2024 8:16 PM EST Aubree Silverio MD CHEMISTRY ORDERABL ES Performing Organization Address City/State/[facility] Co de Phone Number [facility] [place] [address] * (ABNORMAL) Phosphorus (07/29/2024 8:11 PM EST) Phosphorus 2.1(L) 2.5 - 4.5 mg/dL 07/29/2024 8:52 PM EST [facility] Blood VENOUS BLOOD SPECIMEN / Unknown Venipuncture / Unknown 07/29/2024 8:11 PM EST 07/29/2024 8:16 PM EST Aubree Silverio MD CHEMISTRY ORDERABL ES Performing Organization Address City/State/[facility] Co de Phone Number [facility] [place] [address] * POC, GLUCOSE (07/29/2024 8:09 PM EST) Glucometer, POC 142 65 - 199 mg/dL 07/29/2024 8:09 PM EST [facility] Comment:Supplemental ranges: <140 mg/dL before meals <180 mg/dL all other times of the day. Blood CAPILLARY BLOOD / Unknown 07/29/2024 8:09 PM EST 07/29/2024 8:09 PM EST Aubree Silverio MD POINT OF CARE TEST ORDERABLES Performing Organization Address [facility] Co de Phone Number [facility] [place] [address] * ABORH RECHECK (07/29/2024 6:43 PM EST) ABORH Recheck AB POSITIVE 07/29/2024 10:13 PM EST [facility] Blood VENOUS BLOOD SPECIMEN / Unknown Venipuncture / Unknown 07/29/2024 6:43 PM EST 07/29/2024 7:15 PM EST Aubree Silverio MD BLOOD BANK LAB ORD ERABLES Performing Organization Address [facility] Co de Phone Number [facility] [place] [address] * POC, GLUCOSE (07/29/2024 5:57 PM EST) Glucometer, POC 166 65 - 199 mg/dL 07/29/2024 5:57 PM EST [facility] Comment:Supplemental ranges: <140 mg/dL before meals <180 mg/dL all other times of the day. Blood CAPILLARY BLOOD / Unknown 07/29/2024 5:57 PM EST 07/29/2024 5:57 PM EST Aubree Silverio MD POINT OF CARE TEST ORDERABLES [facility] [place] [address] * Type and screen ([facility]/JONG/MAGALIE) (07/29/2024 5:56 PM EST) [facility] ABORH Type AB POSITIVE 07/29/2024 9:44 PM EST [facility] PATIENT HISTORY Not Found 07/29/2024 9:44 PM EST [facility] Expires at [id number] on: 08/01/2024 07/29/2024 9:44 PM EST [facility] ANTIBODY SCREEN AUTOMATED Negative 07/29/2024 9:44 PM EST [facility] T&S only valid at [facility] 07/29/2024 9:44 PM EST [facility] Blood VENOUS BLOOD SPECIMEN / Unknown Venipuncture / Unknown 07/29/2024 5:56 PM EST 07/29/2024 6:07 PM EST Narrative [facility] - 07/29/2024 9:44 PM EST This Type and Screen result is only valid at the [facility] Aubree Silverio MD BLOOD BANK LAB ORD ERABLES Performing Organization Address City/[facility]/ZIP Co de Phone Number [facility] [place] [address] * (ABNORMAL) Troponin - Single (07/29/2024 4:52 PM EST) [facility] Troponin-T, High Sensitivity >10,000(H ) <=22 ng/L 07/29/2024 5:25 PM EST [facility] Comment: This patient's troponin T concentration [...] troponin value can be found in the [facility] Test Catalog Troponin - https://[email or web address].testcatalog.org/catalogs/565/files/[email or web address] Reference: [place] Definition of Myocardial Infarction. Journal of the [place] [employer] 2018;72:8995-1578 Blood VENOUS BLOOD SPECIMEN / Unknown Venipuncture / Unknown 07/29/2024 4:52 PM EST 07/29/2024 4:57 PM EST Aubree Silverio MD CHEMISTRY ORDERABL ES Performing Organization Address [facility]/ZIP Co de Phone Number [facility] [place] [address] * EKG 12 Lead (07/29/2024 4:21 PM EST) Ventricular rate 72 BPM MUSE SYSTEM Atrial Rate 72 BPM MUSE SYSTEM P-R Interval 168 ms MUSE SYSTEM QRS Duration 82 ms MUSE SYSTEM Q-T Interval 392 ms MUSE SYSTEM QTC Calculated (Bezet) 429 ms MUSE SYSTEM Calculated P [place] 71 degrees MUSE SYSTEM Calculated R [place] 77 degrees MUSE SYSTEM Calculated T [place] 28 degrees MUSE SYSTEM INTERPRETATION Sinus rhythm with Premature supraventricular complexes and Occasional Premature ventricular complexes Low voltage QRS 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) Lateral injury pattern ACUTE DC / STEMI Abnormal ECG When compared with ECG of 29-JUL-2024 13:43, (unconfirmed) Serial changes of evolving Anteroseptal infarct Present Confirmed by MD Marcus, Roverto (1961) on 07/31/2024 5:30:06 AM MUSE SYSTEM 07/29/2024 4:21 PM EST 07/31/2024 5:30 AM EST Aubree Silverio MD ECG ORDERABLES Performing Organization Address City/[facility]/ZIP Co de Phone Number MUSE SYSTEM * (ABNORMAL) Blood Gas, Arterial POC (07/29/2024 4:21 PM EST) pH, Arterial 7.37 7.35 - 7.45 07/29/2024 4:[address] [facility] PCO2, Arterial 36 35 - 45 mmHg 07/29/2024 4:[address] [facility] PO2, Arterial 71(L) 85 - 104 mmHg 07/29/2024 4:[address] [facility] Bicarbonate, Arterial 20.4 20.0 - 26.0 mmol/L 07/29/2024 4:[address] [facility] Base Excess, Arterial -4.8(L) -3.0 - 3.0 mmol/L 07/29/2024 4:[address] [facility] Hemoglobin, Arterial 12.2(L) 13.7 - 16.5 g/dL 07/29/2024 4:[address] [facility] Oxyhemoglobin, Arterial 93.8(L) 94.0 - 97.0 % 07/29/2024 4:[address] [facility] Carboxyhemoglobin , Arterial 0.5 % 07/29/2024 4:[address] [facility] Comment: Nonsmokers: 0.5-1.5% COHB ?? Smokers: Variable ??but usually less than 10% ?? Toxic: 20-30% COHB ?? Lethal: Greater than 60% COHB Methemoglobin, Arterial 0.3 <=1.5 % 07/29/2024 4:[address] [facility] Sodium, Arterial 134(L) 135 - 145 mmol/L 07/29/2024 4:[address] [facility] Potassium, Arterial 4.2 3.5 - 5.0 mmol/L 07/29/2024 4:[address] [facility] Chloride, Arterial 107 98 - 107 mmol/L 07/29/2024 4:[address] [facility] Lactate, Arterial 1.5 0.5 - 2.2 mmol/L 07/29/2024 4:[address] [facility] Fraction of Inspired Oxygen 21 % 07/29/2024 4:[address] [facility] PF Ratio 338 Ratio 07/29/2024 4:[address] [facility] Comment:PF ratio calculated using the non-temperature corrected pO2 result. IONIZED CALCIUM, ARTERIAL 1.12(L) 1.15 - 1.33 mmol/L 07/29/2024 4:[address] [facility] Glucose, Arterial 181 65 - 199 mg/dL 07/29/2024 4:[address] [facility] Comment:Glucose Concentratio n >=200 mg/dL plus symptoms is consistent with Diabetes Mellitus. Blood ARTERIAL BLOOD / Unknown 07/29/2024 4:21 PM EST 07/29/2024 4:22 PM EST Aubree Silverio MD POINT OF CARE TEST ORDERABLES Performing Organization Address City/[facility]/ZIP Co de Phone Number [facility] [place] [address] * POC, GLUCOSE (07/29/2024 4:19 PM EST) Glucometer, POC 185 65 - 199 mg/dL 07/29/2024 4:[address] [facility] Comment:Supplemental ranges: <140 mg/dL before meals <180 mg/dL all other times of the day. Blood CAPILLARY BLOOD / Unknown 07/29/2024 4:19 PM EST 07/29/2024 4:19 PM EST Aubree Silverio MD POINT OF CARE TEST ORDERABLES [facility] [place] [address] * Blood culture (07/29/2024 4:08 PM EST) Blood Culture No growth at 120 hours 08/03/2024 5:01 PM EST [facility] Blood VENOUS BLOOD SPECIMEN / Unknown Venipuncture / Unknown 07/29/2024 4:08 PM EST 07/29/2024 4:15 PM EST Aubree Silverio MD MICROBIOLOGY - BLO OD ORDERABLES Performing Organization Address [facility] Co de Phone Number [facility] [place] [address] * Blood culture (07/29/2024 4:08 PM EST) Blood Culture No growth at 120 hours 08/03/2024 5:01 PM EST [facility] Blood VENOUS BLOOD SPECIMEN / Unknown Venipuncture / Unknown 07/29/2024 4:08 PM EST 07/29/2024 4:26 PM EST Aubree Silverio MD MICROBIOLOGY - BLO OD ORDERABLES Performing Organization Address [facility] de Phone Number [facility] [place] [address] * XR Chest One View (07/29/2024 2:30 PM EST) WORKSTATION ID [id number] DH RAD Anatomical Region Laterality Modality Chest [...] who have questions please contact the health lpn care manager that requested your imaging first. ? Electronically signed by: Chris Candelaria MD, [facility] ([phone]), at 07/29/2024 3:21 PM Narrative 07/29/2024 3:21 [...] patients who have questions please contactthe health lpn care manager that requested your imaging first. Electronically signed by: Chris Candelaria MD, [facility]([phone]), at 07/29/2024 3:21 PM Vahe Marvin MD IMG DX ORDERABLES * (ABNORMAL) APTT (07/29/2024 2:03 PM EST) Partial Thromboplastin Time >160(HHH) 25 - 37 sec 07/29/2024 2:56 PM EST [facility] Blood VENOUS BLOOD SPECIMEN / Unknown Venipuncture / Unknown 07/29/2024 2:03 PM EST 07/29/2024 2:13 PM EST Vahe Marvin MD HEMATOLOGY ORDERABLE S Performing Organization Address City/[facility]/ZIP Co de Phone Number [facility] [place] [address] * (ABNORMAL) Prothrombin Time (07/29/2024 2:03 PM EST) Prothrombin Time 14.2(H) 9.4 - 12.5 sec 07/29/2024 2:56 PM EST [facility] International Normalization Ratio 1.3 <=4.9 07/29/2024 2:56 PM EST [facility] Comment: An INR < 2.0 indicates [...] MD HEMATOLOGY ORDERABLE S Performing Organization Address [facility] Co de Phone Number [facility] [place] [address] * CRP, acute inflammation (07/29/2024 2:03 PM EST) C-Reactive Protein <3.0 <=4.9 mg/L 07/29/2024 2:52 PM EST [facility] Blood VENOUS BLOOD SPECIMEN / Unknown Venipuncture / Unknown 07/29/2024 2:03 PM EST 07/29/2024 2:14 PM EST Vahe Marvin MD CHEMISTRY ORDERABLES Performing Organization Address City/[facility]/ZIP Co de Phone Number [facility] [place] [address] * Lipid Panel (Reflex Direct LDL) (07/29/2024 2:03 PM EST) Cholesterol, Total 133 mg/dL 07/29/2024 2:[address] [facility] Comment: Desirable: < 200 mg/dL Borderline High: 200 - 239 mg/dL High: > or = 240 mg/dL Triglyceride 45 mg/dL 07/29/2024 2:[address] [facility] Comment: Normal: <150 mg/dL Borderline High: 150-199 mg/dL High: 200-499 mg/dL Very High: > or =500 mg/dL HDL Cholesterol 58 mg/dL 2:[address] [facility] Comment:Males: High Risk: <4 0 mg/dL LDL Cholesterol 64 mg/dL 4 2:[address] [facility] Comment: Desirable: <100 mg/dL Above Desirable: 100-129 mg/dL Borderline High: 130-159 mg/dL High: 160-189 mg/dL Very High: > or =190 mg/dL Note: LDL calculation updated to the NIH LDL formula as of 04/15/2024 Non-HDL Cholesterol 75 mg/dL 07/29/2024 2:[address] [facility] Comment: Desirable: <130 mg/dL Above Desirable: 130-159 mg/dL Borderline High: 160-189 mg/dL High: 190-219 mg/dL Very High: > or = 220 mg/dL Blood VENOUS BLOOD SPECIMEN / Unknown Venipuncture / Unknown 07/29/2024 2:03 PM EST 07/29/2024 2:14 PM EST [facility] - 07/29/2024 2:52 PM EST It [...] ACC/AHA Guidelines (most recently Rolf et al. JAC 06/15/22): * For individuals with atherosclerotic cardiovascular [...] artery disease) Vahe Marvin MD CHEMISTRY ORDERABLES [facility] [place] [address] * TSH [place] (07/29/2024 2:03 PM EST) Thyroid Stimulating Hormone 0.70 0.27 - 4.20 mcIU/mL 07/29/2024 2:52 PM EST [facility] Blood VENOUS BLOOD SPECIMEN / Unknown Venipuncture / Unknown 07/29/2024 2:03 PM EST 07/29/2024 2:14 PM EST Vahe Marvin MD CHEMISTRY ORDERABLES [facility] [place] [address] * Hemoglobin A1c (07/29/2024 2:03 PM EST) Pathologist [facility] Hemoglobin A1c 5.3 4.3 - 5.6 % 07/29/2024 2:41 PM EST [facility] Comment: Per ADA guidelines, without clear [...] red blood cell turnover may not be self pay representative of glycemic control. Reference Interval: 4.3 - 5.6% 5.7 - 6.4%: Consistent with prediabetes >=6.5%: Consistent with diagnosis of diabetes mellitus Estimated Average Glucose 07/29/2024 2:41 PM EST [facility] Comment:Estimated Average Gl ucose not appropriate for patients over 70 years of age. Blood VENOUS BLOOD SPECIMEN / Unknown Venipuncture / Unknown 07/29/2024 2:03 PM EST 07/29/2024 2:14 PM EST [facility] - 07/29/2024 2:41 PM EST Estimated average glucose (eAG) is calculated from the equation described in: Quinten ALVES, Rikki J, Reno R, et al. ??Translating the A1C assay into estimated average glucose values. ??Diabetes Care 2008:31(8):2973-8166. Additional resources are available on the ADA website (diabetes.org). Vahe Marvin MD CHEMISTRY ORDERABLES [facility] [place] [address] * (ABNORMAL) CBC (with Diff) (07/29/2024 2:03 PM EST) White Blood Cell 19.50(H) 4.00 - 9.50 x10(3)/mc L 07/29/2024 2:18 PM EST [facility] Red Blood Cell 4.81 4.58 - 5.54 x10(6)/mc L 07/29/2024 2:[address] [facility] Hemoglobin 13.1(L) 13.7 - 16.5 g/dL 07/29/2024 2:18 PM EST [facility] Hematocrit 40.1(L) 40.5 - 48.5 % 07/29/2024 2:18 PM EST [facility] Mean Cell Volume 83.4 82.9 - 93.1 fL 07/29/2024 2:18 PM EST [facility] Mean Cell Hemoglobin 27.2(L) 27.5 - 32.1 pg 07/29/2024 2:[address] [facility] Mean Cell Hemoglobin Concentration 32.7 32.0 - 35.7 g/dL 07/29/2024 2:18 PM EST [facility] Platelet 236 145 - 357 x10(3)/mc L 07/29/2024 2:[address] [facility] Mean Platelet Volume 10.6 7.6 - 12.9 fL 07/29/2024 2:18 PM EST [facility] RDW Standard Deviation 43.7 36.0 - 45.0 fL 07/29/2024 2:[address] [facility] RDW coefficient of variation 14.3(H) 11.4 - 13.8 % 07/29/2024 2:[address] [facility] NRBC% auto 0.0 % 07/29/2024 2:[address] [facility] NRBC Absolute <0.01 <0.01 x10(3)/mc L 07/29/2024 2:[address] [facility] Neutrophil % 93.6 % 07/29/2024 2:[address] [facility] Neutrophil Absolute (ANC) - Automated 18.28(H) 1.70 - 6.10 x10(3)/mc L 07/29/2024 2:[address] [facility] Lymph % 2.7 % 07/29/2024 2:[address] [facility] Lymph Absolute 0.52(L) 0.90 - 3.20 x10(3)/mc L 07/29/2024 2:[address] [facility] Monocyte % 2.9 % 07/29/2024 2:[address] [facility] Monocyte Absolute 0.56 0.30 - 0.90 x10(3)/mc L 07/29/2024 2:[address] [facility] Eos % 0.0 % 07/29/2024 2:[address] [facility] Eos Absolute <0.04 0.00 - 0.40 x10(3)/mc L 07/29/2024 2:[address] [facility] Basophil % 0.3 % 07/29/2024 2:[address] [facility] Baso Absolute 0.05 0.00 - 0.10 x10(3)/mc L 07/29/2024 2:[address] [facility] Immature Gran % 0.5 % 2:[address] [facility] Immature Gran Absolute 0.09(H) 0.00 - 0.04 x10(3)/mc L 07/29/2024 2:[address] [facility] Blood VENOUS BLOOD SPECIMEN / Unknown Venipuncture / Unknown 07/29/2024 2:03 PM EST 07/29/2024 2:13 PM EST Vahe Marvin MD HEMATOLOGY ORDERABLE S [facility] [place] [address] * Phosphorus (07/29/2024 2:03 PM EST) Phosphorus 2.5 2.5 - 4.5 mg/dL 07/29/2024 2:52 PM EST [facility] Blood VENOUS BLOOD SPECIMEN / Unknown Venipuncture / Unknown 07/29/2024 2:03 PM EST 07/29/2024 2:14 PM EST Vahe Marvin MD CHEMISTRY ORDERABLES Performing Organization Address City/[facility]/ZIP Co de Phone Number [facility] [place] [address] * Magnesium (07/29/2024 2:03 PM EST) Pathologist [facility] Magnesium 0.70 0.69 - 1.07 mMol/L 07/29/2024 2:52 PM EST [facility] Blood VENOUS BLOOD SPECIMEN / Unknown Venipuncture / Unknown 07/29/2024 2:03 PM EST 07/29/2024 2:14 PM EST Vahe Marvin MD CHEMISTRY ORDERABLES [facility] [place] [address] * (ABNORMAL) Comprehensive metabolic panel (07/29/2024 2:03 PM EST) Glucose 243(H) 65 - 199 mg/dL 07/29/2024 3:11 PM EST [facility] Comment:Glucose Concentratio n >=200 mg/dL plus symptoms is consistent with Diabetes Mellitus. Blood Urea Nitrogen 13 10 - 20 mg/dL 07/29/2024 3:11 PM EST [facility] Creatinine 0.88 0.80 - 1.50 mg/dL 07/29/2024 3:[address] [facility] Sodium 138 135 - 145 mMol/L 07/29/2024 3:[address] [facility] Potassium 3.6 3.5 - 5.0 mMol/L 07/29/2024 3:[address] [facility] Chloride 104 98 - 107 mMol/L 07/29/2024 3:[address] [facility] Carbon Dioxide 19(L) 22 - 31 mMol/L 07/29/2024 3:[address] [facility] Anion Gap 15 5 - 15 mMol/L 07/29/2024 3:[address] [facility] Calcium 8.0(L) 8.5 - 10.5 mg/dL 07/29/2024 3:[address] [facility] Protein, Total 6.0(L) 6.1 - 8.0 g/dL 07/29/2024 3:[address] [facility] Albumin 3.6 3.2 - 5.2 g/dL 07/29/2024 3:[address] [facility] Aspartate Aminotransferase 07/29/2024 3:[address] [facility] Comment:Unable to report due to hemolysis. Alanine Aminotransferase 56(H) 0 - 55 unit/L 07/29/2024 3:[address] [facility] Alkaline Phosphatase 58 40 - 130 unit/L 07/29/2024 3:[address] [facility] Bilirubin, Total 0.5 <=1.3 mg/dL 07/29/2024 3:[address] [facility] Est Glomerular Filtration Rate - Male 91 mL/min/1. 73 m?? 07/29/2024 3:[address] [facility] Comment: This patient's estimated GFR [...] PM EST Vahe Marvin MD CHEMISTRY ORDERABLES [facility] [place] [address] * (ABNORMAL) Troponin - Single (07/29/2024 2:03 PM EST) Pathologist [facility] Troponin-T, High Sensitivity >10,000(H ) <=22 ng/L 07/29/2024 2:52 PM EST [facility] Comment: This patient's troponin T concentration [...] troponin value can be found in the [facility] Laboratory Test Catalog Troponin - https://[email or web address].org/catalogs/565/files/03028 Reference: [place] Definition of Myocardial Infarction. Journal of the [place] [employer] 2018;72:1784-8175 Blood VENOUS BLOOD SPECIMEN / Unknown Venipuncture / Unknown 07/29/2024 2:03 PM EST 07/29/2024 2:14 PM EST Vahe Marvin MD CHEMISTRY ORDERABLES [facility] [place] [address] * (ABNORMAL) Blood Gas, Venous POC (07/29/2024 2:01 PM EST) pH, Venous 7.30(L) 7.32 - 7.42 07/29/2024 2:02 PM EST [facility] PCO2, Venous 42 38 - 58 mmHg 07/29/2024 2:[address] [facility] PO2, Venous 39 16 - 65 mmHg 07/29/2024 2:[address] [facility] Bicarbonate, Venous 20.1(L) 22 - 31 mmol/L 07/29/2024 2:[address] [facility] Base Excess, Venous -6.4(L) 1.9 - 4.5 mmol/L 07/29/2024 2:[address] [facility] Hemoglobin, Venous 14.2 13.7 - 16.5 g/dL 07/29/2024 2:[address] [facility] Oxyhemoglobin, Venous 69.3 % 07/29/2024 2:[address] [facility] Carboxyhemoglobin , Venous 0.8 % 07/29/2024 2:[address] [facility] Comment: Nonsmokers: 0.5-1.5% COHB ?? Smokers: Variable ??but usually less than 10% ?? Toxic: 20-30% COHB ?? Lethal: Greater than 60% COHB Methemoglobin, Venous 0.3 <=1.5 % 07/29/2024 2:[address] [facility] Sodium, Venous 137 135 - 145 mmol/L 07/29/2024 2:[address] [facility] Potassium, Venous 3.6 3.5 - 5.0 mmol/L 07/29/2024 2:[address] [facility] Chloride, Venous 103 98 - 107 mmol/L 07/29/2024 2:02 PM EST [facility] Glucose, Venous 229(H) 65 - 199 mg/dL 07/29/2024 2:02 PM EST [facility] Comment:Glucose Concentratio n >=200 mg/dL plus symptoms is consistent with Diabetes Mellitus. Lactate, Venous 3.1(H) 0.5 - 2.2 mmol/L 07/29/2024 2:02 PM EST [facility] Ionized Calcium, Venous 1.11(L) 1.15 - 1.33 mmol/L 07/29/2024 2:02 PM EST [facility] Blood VENOUS BLOOD SPECIMEN / Unknown 07/29/2024 2:01 PM EST 07/29/2024 2:02 PM EST Vahe Marvin MD POINT OF CARE TEST O RDERABLES Performing Organization Address City/State/[facility] Co de Phone Number [facility] [place] [address] * CARDIAC CATHETERIZATION (07/29/2024 1:20 PM EST) Anatomical Region Laterality Modality Other Narrative 07/29/2024 2:02 PM EST ?[facility] ? Cardiac Catheterization/Intervention Report ? Patient Name: Korey Montoya Driss ? Procedure Date: 07/29/2024 ? A #: [id number] ? Primary Physician: Vahe Marvin ? Case #: [id number] ? File Name: [id number] ? Catheterization Order Number: [id number] ? [facility] ? Final Report [place], [place] ? Patient Name: ? Korey P. Montoya ?ID#: ?[id number] ? : ?1950 ? Procedure Date: ? July 29, 2024 ?Case #: ? [id number] ? Room: ? 5 ? Case Physician: [...] was designated as ASA Class IV. The HA clinical ?frailty scale is 4: Vulnerable. ? Diagnostic Tests: ?Electrocardiography: ? EKG was assessed by ECG. EKG was Abnormal. EKG showed ST Deviation ? >= 0.5 mm. ?Medications Prior to Procedure: ? Angiotensin II Receptor Elvis and Statin. ? Indications for Diagnostic Cath: ?The priority of the diagnostic procedure was Emergent. The indication for ?the laborer concrete paving visit is ACS less than or equal [...] 3.5 guiding catheter and a 3.5 Fr [place] [facility] [address] ??20 Mhz using ?Manual pullback. ??Imaging [...] A premounted 3.00 x 22 mm Jeison [place] (LOW) was deployed ? with a maximum [...] atmospheres. ??A premounted 3.00 x 08 mm Heartwell [place] (LOW) ? was deployed with a maximum [...] administered prior to arrival in the laborer concrete paving. ?Recommended anti-platelet/anti-thrombotic regimen: ?Start aspirin 81 mg daily now and continue for 12 months then stop. ?Start clopidogrel 75 mg daily now and continue for indefinitely. ?These recommendations are made at the time of the intervention. Patient ?and provider preferences or a changing clinical situation may require ?modification of this regimen. Consult [facility] Interventional Cardiology for ?questions. ?The 1 year [...] able ?to start weaning his inotropes/vasopressors. A Theodore Colette catheter was ?placed demonstrating improvement in his hemodynamics and the impella site ?was perclosed and hemostatic gauze was applied with excellent result. ?WIll transfer to the [facility] for further management. ?The attending physician was present for the entire procedure. ?Dr. Vahe Marvin M.D. was present during the moderate sedation ?intraservice time as documented by the sedation nurse. ??Case time = 01:26. ?Dr. Vahe Marvin M.D. performed the coronary angiography, left heart ?catheterization, IVUS # coronary, stent insertion-coronary, oximetry, ABG, ?transthoracic echo , ventricular assist device insertion, right heart ?catheterization, Theodore (flow directed cath) insertion, access site ?angiography, vascular ultrasound, venous line / sheath insert and vascular ?closure device. ? Vahe Marvin M.D. ? Electronically Signed by: Vahe Marvin M.D. ? Report Finalized: 07/29/2024 ??13:55 ? Report Last Ammended: 07/30/2024 ??10:15 ? Procedure Note Vahe Marvin MD - 07/30/2024 [facility] Cardiac Catheterization/Intervention Report Patient Name: Korey Montoya Procedure Date: 07/29/2024 A #: [id number] Primary Physician: Vahe Marvin Case #: [id number] File Name: [id number] Catheterization Order Number: [id number] [facility] FinalReport [place], [place] Patient Name: Korey Montoya ID#:[id number] :1950 Procedure Date: July 29, 2024 Case [...] procedure was Emergent. Theindication for the laborer concrete paving visit is ACS less than or equal [...] 3.5 guiding catheter and a 3.[address] [place] [facility] [address] 20 Mhzusing Manual pullback. Imaging was [...] The priority for the procedure was Emergent.The [facility] indication for the procedure was STEMI-Immediate PCI [...] The lesion was predilated with a 2.00mm [id number] MM balloon with a maximum inflation pressure of 12atmospheres. A premounted 3.00 x 22 mm Heartwell [place] (LOW) wasdeployed with a maximum inflation pressure [...] A premounted 3.00 x 08 mm Jeison [place](LOW) was deployed with a maximum inflation pressure [...] administered prior to arrival in the laborer concrete paving. Recommended anti-platelet/anti-thrombotic regimen: Start aspirin 81 mg daily now and continue for 12 months then stop. Start clopidogrel 75 mg daily now and continue for indefinitely. These recommendations are made at the time of the intervention.Patient and provider preferences or a changing clinical situation mayrequire modification of this regimen. Consult [facility] Interventional Cardiologyfor questions. The 1 year bleeding [...] wereable to start weaning his inotropes/vasopressors. A Theodore Colette catheterwas placed demonstrating improvement in his [...] ventricular assist device insertion, right heart catheterization, Theodore (flow directed cath) insertion, access site angiography, vascular ultrasound, venous line / sheath insert andvascular closure device. Vahe Marvin M.D. Electronically Signed by: Vahe Marvin M.D. Report Finalized: 07/29/2024 13:55 Report Last Ammended: 07/30/2024 10:15 Vahe Marvin MD CARDIAC CATH ORDERAB LES * (ABNORMAL) BLOOD GAS, POC (07/29/2024 12:46 PM EST) Sodium, POC 139 135 - 145 mmol/L 07/30/2024 7:30 AM EST [facility] Potassium, POC 3.4(L) 3.5 - 5.0 mmol/L 07/30/2024 7:[address] [facility] pH, POC 7.33(L) 7.35 - 7.45 07/30/2024 7:[address] [facility] Ionized Calcium, POC 1.13(L) 1.15 - 1.33 mmol/L 07/30/2024 7:[address] [facility] pCO2, POC 38 35 - 45 mmHg 07/30/2024 7:[address] [facility] pO2, POC 94 85 - 104 mmHg 07/30/2024 7:[address] [facility] Base Excess, POC -6.0(L) -3.0 - 3.0 mmol/L 07/30/2024 7:[address] [facility] Hematocrit, POC 39.0(L) 40.5 - 48.5 %PCV 07/30/2024 7:[address] [facility] Hemoglobin, POC 13.3(L) 13.7 - 16.5 g/dL 07/30/2024 7:[address] [facility] Comment:The calculation of h emoglobin from hematocrit assumes a normal MCHC. Bicarbonate, POC 19.8(L) 20.0 - 26.0 mmol/L 07/30/2024 7:[address] [facility] Carbon Dioxide, POC 21(L) 22 - 31 mmol/L 07/30/2024 7:[address] [facility] Blood VENOUS BLOOD SPECIMEN / Unknown 07/29/2024 12:46 PM EST 07/30/2024 7:30 AM EST Vahe Mravin MD POINT OF CARE TEST O RDERABLES [facility] [place] [address] * (ABNORMAL) BLOOD GAS, POC (07/29/2024 12:12 PM EST) Sodium, POC 135 135 - 145 mmol/L 07/30/2024 7:[address] [facility] Potassium, POC 3.8 3.5 - 5.0 mmol/L 07/30/2024 7:[address] [facility] pH, POC 7.27(LLL) 7.35 - 7.45 07/30/2024 7:[address] [facility] Ionized Calcium, POC 1.14(L) 1.15 - 1.33 mmol/L 07/30/2024 7:[address] [facility] pCO2, POC 43 35 - 45 mmHg 07/30/2024 7:[address] [facility] pO2, POC 131(H) 85 - 104 mmHg 07/30/2024 7:[address] [facility] Base Excess, POC -7.0(L) -3.0 - 3.0 mmol/L 07/30/2024 7:[address] [facility] Hematocrit, POC 36.0(L) 40.5 - 48.5 %PCV 07/30/2024 7:[address] [facility] Hemoglobin, POC 12.2(L) 13.7 - 16.5 g/dL 07/30/2024 7:[address] [facility] Comment:The calculation of h emoglobin from hematocrit assumes a normal MCHC. Bicarbonate, POC 19.7(L) 20.0 - 26.0 mmol/L 07/30/2024 7:[address] [facility] Carbon Dioxide, POC 21(L) 22 - 31 mmol/L 07/30/2024 7:[address] [facility] Blood VENOUS BLOOD SPECIMEN / Unknown 07/29/2024 12:12 PM EST 07/30/2024 7:30 AM EST Vahe Marvin MD POINT OF CARE TEST O RDERABLES [facility] [place] [address] documented in this encounter Visit Diagnoses Not on filedocumented in this encounter Admitting Diagnoses Diagnosis STEMI (ST elevation myocardial infarction) Acute myocardial infarction, unspecified site, episode of care unspecified documented in this encounter Administered Medications Inactive Administered Medications - up to 3 most recent administrations Medication Order MAR Action Action Date Dose Rate Site acetaminophen (Tylenol) tablet 650 mg 650 mg, Oral, EVERY 4 HOURS PRN, Starting on Tue07/30/24 at 0732, Until 08/04/24 at 1832, Pain, [...] Given 07/30/2024 8:14 AM EST 650 mg aspirin EC tablet 81 mg 81 mg, [...] Given 08/01/2024 4:56 PM EST 80 mg ceFAZolin (Ancef) injection PRN, Starting on Tue07/31/24 at 1736, Until Erna 08/02/24 at 1005, Intra-Operative (Intra-Procedure), Routine Given 07/31/2024 5:36 PM EST 2 g Centr al Line clopidogreL (Plavix) tablet 75 mg 75 mg, Oral, DAILY, First dose on Tue07/30/24 at 0900, Until Discontinued, Routine Given 08/04/2024 9:34 AM EST 75 mg Given 08/03/2024 8:45 AM EST 75 mg Given 08/02/2024 8:47 AM EST 75 mg dextrose 50% intravenous solution 25 g 25 [...] next dose. Warning Vesicant/Irritant Medication , Routine empagliflozin (Jardiance) tablet 10 mg 10 mg, [...] Given 08/01/2024 8:26 PM EST 40 mg fentaNYL (pf) (50 mcg/mL) multi-dose injection PRN, Starting on 07/31/24 at 1711, Until Erna 08/02/24 at 1006, Intra-Operative (Intra-Procedure), Routine Given 07/31/2024 5:25 PM EST 50 mcg Centr al Line Given 07/31/2024 5:19 PM EST 25 mcg Ce ntral Line Given 07/31/2024 5:11 PM EST 25 mcg Ce ntral Line glucagon (Glucagen) (1 mg/mL) injection solution 1 [...] weight of tube = 37.5 grams.), Routine losartan (Cozaar) tablet 25 mg 25 mg, Oral, DAILY, First dose on Tue08/02/24 at 1030, Until Discontinued, Routine Given 08/04/2024 9:34 AM EST 25 mg Given 08/03/2024 8:45 AM EST 25 mg Given 08/02/2024 10:55 AM EST 25 mg melatonin tablet 6 mg 6 mg, [...] Given 08/03/2024 8:45 AM EST 25 mg midazolam (pf) (Versed) (1 mg/mL) multi-dose injection PRN, Starting on Tue07/31/24 at 1711, Until Tue08/02/24 at 1006, Intra-Operative (Intra-Procedure), Routine Given 07/31/2024 5:19 PM EST 1 mg Centr al Line Given 07/31/2024 5:11 PM EST 1 mg Ce ntral Line spironolactone (Aldactone) tablet 12.5 mg 12.5 mg, [...] Given 08/02/2024 8:47 AM EST 0.4 mg documented in this encounter Active and Recently Administered Medications Times are shown in EST. Scheduled Medication Order 08/02/2024 08/03/2024 08/04/2024 aspirin EC tablet 81 mg 81 mg, Oral, DAILY, First dose on Tue07/30/24 at 0900, Until Discontinued, Recovery (Recovery-Hospital Unit), Routine 0900 (Given - Provider: Parvin Strauss RN) 0845 (Given - Provider: Tonya Watson RN) 0934 (Given - Provider: Tonya Watson, RENEA) atorvastatin (Lipitor) tablet 80 mg 80 mg, Oral, EVERY EVENING, First dose on Tue07/29/24 at 1700, Until Discontinued, Routine 1643 (Given - Provider: Parvin Strasus RN) 1700 (Due) 1623 (Given - Provider: Tonya Watson, RENEA) clopidogreL (Plavix) tablet 75 mg 75 mg, Oral, DAILY, First dose on Tue07/30/24 at 0900, Until Discontinued, Routine 0847 (Given - Provider: Parvin Strauss RN) 0845 (Given - Provider: Tonya Watson, RENEA) 0934 (Given - Provider: Tonya Watson, RENEA) empagliflozin (Jardiance) tablet 10 mg 10 mg, [...] Wisdom RN) 2202 (Given - Provider: France Guerrero, RENEA) losartan (Cozaar) tablet 25 mg 25 mg, Oral, DAILY, First dose on Tue08/02/24 at 1030, Until Discontinued, Routine 1055 (Given - Provider: Parvin Strauss RN) 0845 (Given - Provider: Tonya Watson RN) 0934 (Given - Provider: Tonya Watson, RENEA) magnesium sulfate 2 g in sterile water [...] Wisdom RN) 2202 (Given - Provider: France Guerrero, RENEA - Comment: per patient wanted it later [...] (2 times per day), First dose on Erna 08/02/24 at 1330, Until Discontinued, Routine 1352 (Given - Provider: Parvin Strauss RN)2024 (Given - Provider: Edouard Wisdom RN) spironolactone (Aldactone) tablet 12.5 mg 12.5 mg, [...] Watson, RENEA) 0934 (Given - Provider: Tonya Watson, RENEA) PRN Medication Order 08/02/2024 08/03/2024 08/04/2024 acetaminophen [...] Routine documented in this encounter Care Teams Maintenance Job Titles Relationship Specialty Start Date End Date Alexia Mtz, PROJECT OFFICER [address] [place] [address] PCP - General Family Medicine 07/30/24 documented as of this encounter
--- OUTSIDE RECORDS SUMMARY | 2024-08-22 11:34 | XMS_ITS | Encounter Summary ---
Author Organization [facility] [place] [address] Care Team Providers Care Lab Manager Name Role Phone Alexia Mtz PRESS BUCKER Primary Care Provider [phone] Encounter Details Date Type Department Care Team (Late st Contact Info) Description 04/23/2024 Lab [place] [address] Alexia Mzt, PRESS BUCKER [address] [place], [place] [id number] Elevated prostate specific antigen (PSA) Social History Tobacco Use Types Packs/Day Years Used Date Smoking Tobacco: Former Cigarettes Smokeless Tobacco: Never Alcohol Use Standard Drinks/Week Comments Not Currently 0 (1 standard drink = 0.6 oz pur e alcohol) Sex and Gender Information Value Date Recorded Sex Assigned at Male 06/21/2023 9:42 AM EDT Gender Identity Male 06/21/2023 9:42 AM EDT Sexual Orientation Straight 06/21/2023 9: 42 AM EDT documented as of this encounter Plan of Treatment Upcoming Encounters Date Type Department Care Team (Late st Contact Info) Description 10/01/2024 10:00 AM EST Office Visit Cardiology at [address] [phone] Mushtaq Murphy APRN documented as of this encounter Procedures Procedure Name Priority Date/Time Associated Diagnosis Comments PSA (ULTRASENSITIVE), TOTAL AND FREE Routine 04/23/2024 1:09 PM EDT Elevated prostate specific antigen (PSA) documented in this encounter Results * (ABNORMAL) PSA (Ultrasensitive), total and free (04/23/2024 1:09 PM EDT) Prostate Specific Antigen (Ultrasensitive) 5.24(H) 0.00-4.00 ng/mL ng/ml 04/23/2024 5:18 PM EDT [facility] Comment:The reference interv al (0 - 4 ng/mL) is applicable to individuals with an intact prostate. Values within this reference interval may indicate recurrence in those who have undergone radical prostatectomy. This result was generated using a Tonya Osiel immunoassay. Results obtained from other methods or manufacturers cannot be used interchangeably with this method. Prostate Specific Antigen, Free 1.1 ng/ml 04/23/2024 5:18 PM EDT [facility] Comment:This result was gene rated using a POW Osiel immunoassay. Results obtained from other methods or manufacturers cannot be used interchangeably with this method. PSA % Free 21 % 04/23/2024 5:18 PM EDT [facility] Comment: Probability of finding DOG OR ANIMAL SITTER on needle biopsy by age in years: % fPSA ? 50-59yrs ?? 60-69yrs ? >=70yrs ?? <=10 ?49.2 ?57.5 ?64.5 ?? 11-18 ? 26.9 ?33.9 ?40.8 ?? 19-25 ? 18.3 ?23.9 ?29.7 ?? >25 ?9.1 ?12.2 ?15.8 ?? This result was generated using a Tonya Osiel immunoassay. ??Results obtained from other methods or manufacturers cannot be used interchangeably with this method. Blood VENOUS BLOOD SPECIMEN / Unknown 04/23/2024 1:09 PM EDT 04/23/2024 4:50 PM EDT Alexia Mtz APRN CHEMISTRY ORDERABLES [facility] [place] [address] documented in this encounter Visit Diagnoses Diagnosis Elevated prostate specific antigen (PSA) documented in this encounter Care Teams Lab Manager Relationship Specialty Start Date End Date Alexia Mtz APRN [address] [place] [phone] PCP - General Family Medicine 07/30/24 documented as of this encounter
--- OUTSIDE RECORDS SUMMARY | 2024-08-22 11:34 | XMS_ITS | Encounter Summary ---
[place] [address] Care Team Providers Care Ticker Wirer Name Role Phone Yoel Artis FREDRICK Primary Care Provider [phone] Encounter Details Date Type Department Care Team (Late st Contact Info) Description 01/16/2024 Interpretation Only [facility] [address] [place] [address] Chaparro Montana MD [address] [place] [address] Social History Tobacco Use Types Packs/Day Years [...] AM EST Office Visit Cardiology at [address] [phone] Mushtaq Murphy APRN documented as of this encounter Procedures Procedure Name Priority Date/Time Associated Diagnosis Comments CT HEAD WO CONTRAST (GENERIC) STAT 01/16/2024 4:17 PM EDT documented in this encounter Results * CT Head wo Contrast (Generic) (01/16/2024 4:17 PM EDT) PT CLASS E RAD ADMITDTTM [id number] RAD PT RAD INFO [id number]^Haniss henry^Chaparro RAD EXAM DESC CTHEAD^CT Head w/o Contrast^RIS [facility] WORKSTATION ID [id number] [facility] Anatomical Region Laterality Modality Head Computed Tomogra phy 01/16/2024 4:03 PM EDT Impressions 01/16/2024 4:25 PM EDT No acute intracranial pathology. Thank you for letting us participate in the care of this patient. ??If you are a health care provider and have any questions regarding this report, please contact the number below. ??For patients who have questions please contact the health clinical care leader that requested your imaging first. ? Narrative 01/16/2024 4:25 PM EDT EXAMINATION: CT Head w/o Contrast CLINICAL HISTORY: fell last night from standing, contues to be dizzy. nl ms, no REN TECHNIQUE: CT head performed without intravenous contrast administration. COMPARISON: None FINDINGS: No intracranial hemorrhage, mass, mass effect, extra-axial fluid collection or ventriculomegaly. The calvarium is intact. Procedure Note Alejandro Tenorio MD - 01/16/2024 EXAMINATION: CT Head w/o Contrast CLINICAL HISTORY: fell last night from standing, contues to be dizzy. nlms, no REN TECHNIQUE: CT head performed without intravenous contrast administration. COMPARISON: None FINDINGS: No intracranial hemorrhage, mass, mass effect, extra-axial fluidcollection or ventriculomegaly. The calvarium is intact. IMPRESSION No acute intracranial pathology. Thank you for letting us participate in the care of this patient. If youare a health care provider and have any questions regarding this report,please contact the number below. For patients who have questions please contactthe health clinical care leader that requested your imaging first. Electronically signed by: Alejandro Tenorio MD, [facility]([phone]), at 01/16/2024 4:25 PM Chaparro Montana MD IMG CT ORDERABLES documented in this encounter Visit Diagnoses Not on filedocumented in this encounter Care Teams Ticker Wirer Relationship Specialty Start Date End Date Yoel Artis APRN [address] [place] [id number] PCP - General Internal Medicine 11/18/22 07/29/24 documented as of this encounter
--- OUTSIDE RECORDS SUMMARY | 2024-08-22 11:34 | XMS_ITS | Encounter Summary ---
Author Organization [facility] [place] [address] Care Team Providers Care Telephone Mechanic Name Role Phone Yoel Artis Ute ALCALA Primary Care Provider [phone] Encounter Details Date Type Department Care Team (Late st Contact Info) Description 07/29/2024 Interpretation Only [facility] [address] [place] [phone] Chaparro Montana MD [address] [place] [address] Social History Tobacco Use Types Packs/Day Years Used Date Smoking Tobacco: Former Cigarettes Smokeless Tobacco: Never Alcohol Use Standard Drinks/Week Comments Not Currently 0 (1 standard drink = 0.6 oz pur e alcohol) [facility] Utilities Answer Date Recorded In the past 12 months has [employer], gas, oil, or water [employer] threatened to shut off services in your [...] medical appointments or from getting medications? No 11/1 04/2024 In the past 12 months, has l [...] time in the past 12 m [facility], were you homeless or living in a alf (including now)? No 07/30/2024 IPV Inpatient Questions [...] 10:00 AM EST Office Visit Cardiology at [address] [phone] Mushtaq Murphy APRN documented as of this encounter Procedures Procedure Name Priority Date/Time Associated Diagnosis Comments XR CHEST ONE VIEW STAT 07/29/2024 10: 50 AM EST documented in this encounter Results * XR Chest One View (07/29/2024 10:50 AM EST) PT CLASS E RAD ADMITDTTM [id number] RAD PT RAD MD INFO [id number]^Jordy henry^Chaparro RAD EXAM DESC XCXR1^XR Chest 1 View^RIS RAD WORKSTATION ID [id number] RAD Anatomical Region Laterality Modality Chest N/A Radiographic Farida ging 07/29/2024 10:5 0 AM EST Impressions 07/29/2024 11:07 AM EST Clear lungs. Thank you for letting us participate in the care of this patient. ??If you are a health care provider and have any questions regarding this report, please contact the number below. ??For patients who have questions please contact the health manager home healthcare that requested your imaging first. ? Narrative 07/29/2024 11:07 AM EST EXAMINATION: XR Chest 1 View CLINICAL HISTORY: chest pain FINDINGS: Single AP view of the chest was obtained and compared to prior examination of 07/28/2024. The lungs are clear. There is no evidence of pleural effusions or pneumothorax. Cardiomediastinal silhouette is unremarkable. Procedure Note Darvin Noyola MD - 07/29/2024 EXAMINATION: XR Chest 1 View CLINICAL HISTORY: chest pain FINDINGS: Single AP view of the chest was obtained and compared to prior examination of 07/28/2024. The lungs are clear. There is no evidence ofpleural effusions or pneumothorax. Cardiomediastinal silhouette is unremarkable. IMPRESSION Clear lungs. Thank you for letting us participate in the care of this patient. If youare a health care provider and have any questions regarding this report,please contact the number below. For patients who have questions please contactthe health manager home healthcare that requested your imaging first. Chaparro Montana MD IMG DX ORDERABLES documented in this encounter Visit Diagnoses Not on filedocumented in this encounter Care Teams Telephone Mechanic Relationship Specialty Start Date End Date Yoel Artis APRN [address] [place] [id number] PCP - General Internal Medicine 11/18/22 07/29/24 documented as of this encounter
--- OUTSIDE RECORDS SUMMARY | 2024-08-22 11:34 | XMS_ITS | Encounter Summary ---
Author Organization [facility] Address [facility] [place] [address] Care Team Providers Care Rock Star Name Role Phone Yoel Artis Ute ALCALA Primary Care Provider [phone] Encounter Details Date Type Department Care Team (Late st Contact Info) Description 07/29/2024 Orders Only [place] [address] Susannah Watts PA [facility] [place] [address] [address] Social History Tobacco Use Types Packs/Day Years Used Date Smoking Tobacco: Former Cigarettes Smokeless Tobacco: Never Alcohol Use Standard Drinks/Week Comments Not Currently 0 (1 standard drink = 0.6 oz pur e alcohol) [facility] Utilities Answer Date Recorded In the past 12 months has [employer] gas, oil, or water [employer] threatened to shut off services in your [...] any time in the past [address] [facility], were you homeless or living in a chcf (including now)? No 07/30/2024 IPV Inpatient Questions [...] 10:00 AM EST Office Visit Cardiology at [address] [phone] Mushtaq Murphy APRN documented as of this encounter Procedures Procedure Name Priority Date/Time Associated Diagnosis Comments ECHOCARDIOGRAM TRANSTHORACIC Routine 07/30/2024 1:41 AM EST documented in this encounter Results * Echocardiogram Transthoracic (07/30/2024 1:41 AM EST) Anatomical Region Laterality Modality Cardiac Other 07/30/2024 1:41 AM EST Narrative 07/30/2024 8:23 AM EST [address] [place] [address] ? Echocardiogram Report Name: KOREY BERMUDEZ ? Study Date: 07/30/2024 01:41 AM : 1950 ? Height: 168 cm Age: 74 yrs ? Weight: 5.9 kg Gender: Male ?BSA: 0.63 m2 Performed By: Beatris Ching MD Reason For Study: STEMI, [place] History: ASCVD, HTN, HLD Interpreting Fellow: Beatris Ching. Interpretation Summary This is a limited study performed by a fellow collection clerk to evaluate for cardiogenic shock with impella [...] study available for comparison. Procedure Limited - 22721. Suboptimal quality. There is sinus bradycardia. Left [...] Note Kathleen Banda MD - 07/30/2024 [address] [place] [address] Echocardiogram Report Name: LARA KOREY Kyrie Study Date: 07/30/2024 01:41AM : 1950 Height: 168 cm Age: 74 yrs Weight: 5.9 kg Gender: Male BSA: 0.63 m2 Performed By: Beatris Ching MD Reason For Study: STEMI, VT History: ASCVD, HTN, HLD Interpreting Fellow: Beatris Ching. Interpretation Summary This is a limited study performed by a fellow collection clerk to evaluate forcardiogenic shock with impella in. [...] study available for comparison. Procedure Limited - [id number]. Suboptimal quality. There is sinus bradycardia. Left [...] - 6-14large Aneurysmal 15-16diffuse Unknown ECHO ORDERABLES documented in this encounter Visit Diagnoses Not on filedocumented in this encounter Care Teams Rock Star Relationship Specialty Start Date End Date Yoel Artis APRN [address] [place] [address] PCP - General Internal Medicine 11/18/22 07/29/24 documented as of this encounter
--- OUTSIDE RECORDS SUMMARY | 2024-08-22 11:34 | XMS_ITS | Encounter Summary ---
Author Organization [facility] Address [facility] [place] [address] Care Team Providers Care Resaw Machine Operator Name Role Phone Yoel Artis Ute ALCALA Primary Care Provider [phone] Reason for Visit * Auth/Cert (Routine) Specialty Diagnoses / Procedures Referred By Theodore t Referred To Contact Diagnoses AIRO Procedures [place] [employer] [place] [employer] [facility] Referral ID Status Reason Start Date Expiration Date Visits Re quested Visits Authorized [id number] 1 1 Encounter Details Date Type Department Care Team (Latest Contact Info) Description 07/29/2024 6:32 PM EST - 07/29/2024 11:59 PM EST Hospital Encounter [facility] at [address] [address] Arvin Becerra MD [facility] [place] [address] Discharge Disposition: Home Social History Tobacco Use Types Packs/Day Years Used Date Smoking Tobacco: Former Cigarettes Smokeless Tobacco: Never Alcohol Use Standard Drinks/Week Comments Not Currently 0 (1 standard drink = 0.6 oz pur e alcohol) [place] Utilities Answer Date Recorded In the past 12 months has e electric, gas, oil, or water company [...] any time in the past 12 m [facility], were you homeless or living in a fpc (including now)? No 07/30/2024 [facility] IPV Inpatient Questions Answer Date Recorded Does [...] AM EDT documented as of this encounter Medications at Time of Discharge [...] Psyllium Seed-Sucrose (0) Powder Take by mouth. simvastatin (Zocor) 20 mg tablet Take 20 mg by mouth every evening. 04/17/2023 08/04/2024 nitroGLYcerin (NITROLINGUAL) 400 mcg/spray [place], Non-AerosolIndications: Proctalgia fugax,Fecal smearing,Constipation, unspecified constipation type 1 spray to anus for proctalgia fugax as needed, not to exceed once daily 12 g 06/01/2023 08/04/2024 documented as of this encounter Plan of Treatment Upcoming Encounters Date Type Department Care Team (Late st Contact Info) Description 10/01/2024 10:00 AM EST Office Visit Cardiology at [address] [phone] Mushtaq Murphy APRN documented as of this encounter Visit Diagnoses Not on filedocumented in this encounter Care Teams Resaw Machine Operator Relationship Specialty Start Date End Date Yoel Artis APRN [address] [place] [address] PCP - General Internal Medicine 11/18/22 07/29/24 documented as of this encounter
--- OUTSIDE RECORDS SUMMARY | 2024-08-22 11:34 | XMS_ITS | Encounter Summary ---
[place] [address] Care Team Providers Care Bead Cutter Name Role Phone Yoel Artis FREDRICK Primary Care Provider [phone] Encounter Details Date Type Department Care Team (Late st Contact Info) Description 07/28/2024 Interpretation Only [address] [phone] Quinten Coffey MD [address] [place] [address] Social History Tobacco Use Types Packs/Day Years [...] 10:00 AM EST Office Visit Cardiology at [address] [phone] Mushtaq Murphy APRN documented as of this encounter Procedures Procedure Name Priority Date/Time Associated Diagnosis Comments XR CHEST ONE VIEW STAT 07/28/2024 10: 22 AM EST documented in this encounter Results * XR Chest One View (07/28/2024 10:22 AM EST) PT CLASS E RAD ADMITDTTM [id number] RAD PT RAD INFO [id number]^Alexx ^Quinten RAD EXAM DESC XCXR1^XR Chest 1 View^RIS RAD WORKSTATION ID [id number] RAD Anatomical Region Laterality Modality Chest N/A Radiographic Farida ging 07/28/2024 10:2 2 AM EST Impressions 07/28/2024 11:18 AM EST Clear lungs. Thank you for letting us participate in the care of this patient. ??If you are a health care provider and have any questions regarding this report, please contact the number below. ??For patients who have questions please contact the health medicare interviewer that requested your imaging first. ? Narrative 07/28/2024 11:18 AM EST EXAMINATION: XR Chest 1 View CLINICAL HISTORY: Chest Pain FINDINGS: Single AP view of the chest was obtained and compared to prior examination of 01/16/2024. The lungs are clear. There is no evidence of pleural effusions or pneumothorax. Cardiomediastinal silhouette is unremarkable. Procedure Note Darvin Noyola MD - 07/28/2024 EXAMINATION: XR Chest 1 View CLINICAL HISTORY: Chest Pain FINDINGS: Single AP view of the chest was obtained and compared to prior examination of 01/16/2024. The lungs are clear. There is no evidence ofpleural effusions or pneumothorax. Cardiomediastinal silhouette is unremarkable. IMPRESSION Clear lungs. Thank you for letting us participate in the care of this patient. If youare a health care provider and have any questions regarding this report,please contact the number below. For patients who have questions please contactthe health medicare interviewer that requested your imaging first. Quinten Coffey MD IMG DX ORDERABLES documented in this encounter Visit Diagnoses Not on filedocumented in this encounter Care Teams Bead Cutter Relationship Specialty Start Date End Date Yoel Artis APRN [address] [place] [address] PCP - General Internal Medicine 11/18/22 07/29/24 documented as of this encounter
--- OUTSIDE RECORDS SUMMARY | 2024-08-22 11:34 | XMS_ITS | Encounter Summary ---
Author Organization [facility] [place] [address] Care Team Providers Care Lye Treater Name Role Phone Yoel Artis Ute ALCALA Primary Care Provider Encounter Details Date Type Department Care Team (Late st Contact Info) Description 01/16/2024 5:46 PM EDT - 01/16/2024 11:59 PM EDT Hospital Encounter [facility] [address] [place] [address] Chaparro Montana MD [address] [place] [address] Discharge Disposition: Home Social History Tobacco Use [...] Sig Dispensed Refills Start Date End Date tamsulosin (Flomax) 0.4 mg capsule Take 0.8 mg by mouth daily. 08/28/2023 losartan (Cozaar) 25 mg tablet Take 25 mg by mouth daily. 04/17/2023 Psyllium Seed-Sucrose (0) Powder Take by mouth. simvastatin (Zocor) 20 mg tablet Take 20 mg by mouth every evening. 04/17/2023 08/04/2024 nitroGLYcerin (NITROLINGUAL) 400 mcg/spray [place], Non-AerosolIndications:P roctalgia fugax,Fecal smearing,Constipation, unspecified constipation type 1 spray to anus for proctalgia fugax as needed, not to exceed once daily 12 g 06/01/2023 08/04/2024 documented as of this encounter Plan of Treatment Upcoming Encounters Date Type Department Care Team (Late st Contact Info) Description 10/01/2024 10:00 AM EST Office Visit Cardiology at [address] [phone] Mushtaq Murphy APRN documented as of this encounter Procedures Procedure Name Priority Date/Time Associated Diagnosis Comments URINE CULTURE Routine 01/16/2024 4:00 PM EDT documented in this encounter Results * Urine culture (01/16/2024 4:00 PM EDT) Urine Culture No growth (Less than 1,000 cfu/ml). [facility] Urine 01/16/2024 4:00 PM EDT 01/16/2024 10:36 PM EDT Narrative Resulting Agency Comment Spec In Lab Chaparro Montana MD MICROBIOLOGY - [facility] ORDERABLES [facility] [place] [address] documented in this encounter Visit Diagnoses Not on filedocumented in this encounter Care Teams Lye Treater Relationship Specialty Start Date End Date Yoel Artis APRN [address] [place] [id number] PCP - General Internal Medicine 11/18/22 07/29/24 documented as of this encounter
--- OUTSIDE RECORDS SUMMARY | 2024-08-22 11:34 | XMS_ITS | Encounter Summary ---
[place] [address] Care Team Providers Care Television Journalist Name Role Phone Yoel Artis FREDRICK Primary Care Provider [phone] Encounter Details Date Type Department Care Team (Late st Contact Info) Description 01/16/2024 Interpretation Only [facility] [address] [place] [address] Chaparro Montana MD [address] [place] [address] Social History Tobacco Use Types Packs/Day Years [...] AM EST Office Visit Cardiology at [address] [phone] Mushtaq Murphy APRN documented as of this encounter Procedures Procedure Name Priority Date/Time Associated Diagnosis Comments XR CHEST ONE VIEW STAT 01/16/2024 4:0 4 PM EDT documented in this encounter Results * XR Chest One View (01/16/2024 4:04 PM EDT) PT CLASS E RAD ADMITDTTM [id number] [facility] PT RAD INFO [id number]^Jordy henry^Chaparro RAD EXAM DESC XCXR1^XR Chest 1 View^RIS [facility] WORKSTATION ID [id number] [facility] Anatomical Region Laterality Modality Chest N/A Radiographic Farida ging 01/16/2024 4:04 PM EDT Impressions 01/16/2024 4:08 PM EDT No active cardiopulmonary disease. Thank you for letting us participate in the care of this patient. ??If you are a health care provider and have any questions regarding this report, please contact the number below. ??For patients who have questions please contact the health geriatric personal care aide that requested your imaging first. ? Electronically signed by: Alexey Winslow MD, [facility] ([phone]), at 01/16/2024 4:08 PM Narrative 01/16/2024 4:08 PM EDT EXAMINATION: XR Chest 1 View CLINICAL HISTORY: Chest Pain TECHNIQUE: AP portable upright chest COMPARISON: November 08, 2022 FINDINGS: The visualized lungs are clear and well-expanded. Heart and pulmonary vasculature are normal. No significant osseous finding. Procedure Note Alexey Winslow MD - 01/16/2024 EXAMINATION: XR Chest 1 View CLINICAL HISTORY: Chest Pain TECHNIQUE: AP portable upright chest COMPARISON: November 08, 2022 FINDINGS: The visualized lungs are clear and well-expanded. Heart and pulmonary vasculature are normal. No significant osseous finding. IMPRESSION No active cardiopulmonary disease. Thank you for letting us participate in the care of this patient. If youare a health care provider and have any questions regarding this report,please contact the number below. For patients who have questions please contactthe health geriatric personal care aide that requested your imaging first. Electronically signed by: Alexey Winslow MD, [facility]([phone]), at 01/16/2024 4:08 PM Chaparro Montana MD IMG DX ORDERABLES documented in this encounter Visit Diagnoses Not on filedocumented in this encounter Care Teams Television Journalist Relationship Specialty Start Date End Date Yoel Artis APRN [address] [place] [address] PCP - General Internal Medicine 11/18/22 07/29/24 documented as of this encounter
--- OUTSIDE RECORDS SUMMARY | 2024-08-22 11:34 | XMS_ITS | Encounter Summary ---
[place] [address] Care Team Providers Care Contact Center Associate Name Role Phone Yoel Artis Ute ALCALA Primary Care Provider [phone] Reason for Visit * Auth/Cert (Routine) Specialty Diagnoses / Procedures Referred By Theodore t Referred To Contact Diagnoses STEMI (ST elevation myocardial infarction) STEMI Procedures ER IPI Vahe Marvin MD [facility] [place] [address] [facility] Referral ID Status Reason Start Date Expiration Date Visits Re quested Visits Authorized [id number] 1 1 Encounter Details Date Type Department Care Team (Late st Contact Info) Description 07/29/2024 12:00 PM EST - 07/29/2024 12:54 PM EST [place] [address] Vahe Marvin MD [facility] [place] [address] CARDIAC CATHETERIZATION Social History Tobacco Use Types Packs/Day Years Used Date Smoking Tobacco: Former Cigarettes Smokeless Tobacco: Never Alcohol Use Standard Drinks/Week Comments Not Currently 0 (1 standard drink = 0.6 oz pur e alcohol) [facility] Utilities Answer Date Recorded In the past 12 months has [employer] electric, gas, oil, or water company threatened [...] any time in the past 12 [facility], were you homeless or living in a half-way (including now)? No 07/30/2024 IPV Inpatient Questions [...] AM EDT documented as of this encounter Discharge Summaries * Alex Small MD - 08/04/2024 3:26 PM EST Discharge Summary Patient Name: Korey Montoya Patient Age: 74 y.o. Language: Lithuanian Race: White Ethnicity: Not nor Admit date: [...] daily. Morris estimate is high. Dced with Farxiga instead. - Referral to heart failure team for follow up. Inpatient Provider Contact Information: ALEX SMALL, BRIDGETTE VELAZQUEZ, YRN SILVERIO, AUBREE PARKER, KRYSTAL Zimmer For questions regarding this document or issues relating to this hospitalization on the Medical Service, please contact your inpatient physician through the [facility] Surveillance Inspector . Issues afterhours and on weekends will [...] via air ambulance to [facility] on 07/29 for LHC and [...] via air ambulance to [facility] for further management and LHC demonstrated 100% occlusion. No significant RCA, LMCA, or LCX disease. LOW placed in LAD with some residual distal disease meriting placement of overlapping distal stent. TTE showed apical akinesis and inferior hypokinesis with EF 20%. RHC showed elevated filling pressures. Impella placed and P-level 6 at time of transfer to [facility]. CI initially 1.97, improved to [...] the next year. Access was via right ICING MIXER and this sitewas clean, dry and intact [...] 4.5 4.0 CL 107 106 108* CO2 23 21* 23 BUN 14 16 12 CREATININE [...] for Chest pain. Replaces: nitroGLYcerin 400 mcg/spray Reading, Non-Aerosol 0.4 mg Quantity: 90 tablet Refills: [...] Refills: 0 STOPPED Medications nitroGLYcerin 400 mcg/spray Reading, Non-Aerosol Commonly known as: NITROLINGUAL Replaced by: [...] of one year. After this time, your helicopter technician will determine if you need to continue [...] away. Stay on the phone. The emergency chair post machine operator will tell you what to do. [...] appointments: During 8am-5pm Tuesday through Tuesday call [phone] to speak with a nurse in the cardiology clinic All other times call [phone] and ask to speak to the individual pension adviser distribution dispatcher. Follow up Appointments: PCP Alexia Mtz, CREDIT INVESTIGATOR [phone]. Please call to establish a follow up appointment within 1-2 weeks of discharge. Cardiology. Referral to heart failure has been sent. General Instructions None Future Appointments and Orders Future Orders Complete By Expires Referral to Cardiac Rehab [[id number] Custom] As directed Process Instructions: If no progress note charted, please enter Clinical details in comments. Scheduling Instructions: Questions: My question or request is: STEMI, PCI- cardiac rehab at [facility] Referral to Cardiology [REF12 Custom] As [...] of one year. After this time, your helicopter technician will determine if you need to continue [...] away. Stay on the phone. The emergency chair post machine operator will tell you what to do. [...] appointments: During 8am-5pm Tuesday through Tuesday call [phone] to speak with a nurse in the cardiology clinic All other times call [phone] and ask to speak to the individual pension adviser distribution dispatcher. Follow up Appointments: PCP Alexia Mtz, CREDIT INVESTIGATOR [phone]. Please call to establish a follow up [...] via air ambulance to [facility] on 07/29 for LHC and LOW to LAD for 100% occlusion Social History: Pt lives with his in a 1 level home with 2 NAOMI. 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 He [...] Total time: 35 (tef) minutes Time IN/OUT: 8523-5165 ZAIDA DUBOSE PT Pager: [phone] Physical Therapy Inpatient Rehabilitation Department * Yrn Velazquez MD - 08/03/2024 10:38 AM EST CV HOSPITALIST 2 - [facility] [place] DAILY PROGRESS NOTE Page [phone] to reach a provider 04/04 Admit Date: [...] Labs: Recent Labs 08/03/24 0516 08/02/24 0420 08/01/24 0418 07/31/24 0108 07/30/24 0211 WBC 7.85 8.51 8.51 10.25* 11.25* HGB 11.8* 12.2* 11.2* 11.2* 12.2* HCT 35.9* 35.8* 33.8* 33.9* 37.1* PLATELET 142* 111* 94* 109* 166 MCV 81.0* 81.2* 82.0* 82.1* 82.4* Recent Labs 08/03/24 0516 08/02/24 0420 08/01/249 08/01/24 0820 08/01/24 0418 07/31/24 0108 07/30/24200207/30/24 1508 07/30/24 0211 07/29/24201007/29/24 1403 NA 137 139 -- -- 137 [...] Recent Labs 07/30/24 0809 07/29/24 2231 07/29/24201007/29/24 16507/29/24 1403 TROPONINTHS 8,651* >10,000* >10,000* >10,000* >10,000* Endocrine Recent Labs 07/29/24 1403 TSH 0.70 HA1C 5.3 Recent Labs 07/29/24 1403 CHLPL 133 TRIG 45 HDL 58 LDLCHOL 64 Recent Labs 08/03/24 0516 08/02/24 0747 08/02/24 0420 08/01/24 2035 08/01/24 1655 08/01/24 1242 08/01/24 0744 08/01/24 0418 07/31/241 07/31/24 1104 07/31/24 0747 07/31/24 0108 07/30/24200207/30/24 [...] or before 29-JUL-2024) Lateral injury pattern ACUTE PR / STEMI Abnormal ECG When compared with ECG of 29-JUL-2024 13:43, (unconfirmed) Serial changes of evolving Anteroseptal infarct Present Confirmed by MD Marcus, Roverto ([id number]) on 07/31/2024 5:30:06 AM TTE 07/30/24 Interpretation [...] Compared to the overnight study by the distribution dispatcher fellow the impella position is stable. 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 [facility] 07/29/24 Conclusions: * One vessel coronary artery disease (LAD) * Mild pulmonary hypertension * Elevated pulmonary capillary wedge pressure * Successful stent insertion of the proximal LAD lesion * See Dual Antiplatelet (DAPT) Recommendations above * Successful impella placement for cardiogenic shock. Telemetry: I have personally reviewed and interpreted the telemetry from the last 24 hours. [facility]ESSMENT: Korey Montoya is a 74 y.o. male w/ PMH of hypertension, HLD, and BPH who presents for chief concern of chest pain after being found to have ST elevations on EKG. Patient transferred via air ambulance to [facility] on 07/29 for LHC and [...] be determined OT: PCP Alexia Mtz, FREDRICK [phone] * Zaida Dubose, PT - 08/02/2024 2:08 PM EST Physical Therapy Evaluation Patient profile: Korey Montoya is a 74 y.o. male w/ PMH of hypertension, HLD, and BPH who presents for chief concern of chest pain after being found to have ST elevations on EKG. Patient transferred via air ambulance to [facility] on 07/29 for LHC and LOW to LAD for 100% occlusion Social History: Pt lives with his in a 1 level home with 2 NAOMI. 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 He drives. home to assist as needed. Precautions/Special Considerations: At risk to fall; recent STEMI Mobility and Positioning Recommendations: OOB to chair with 1 cg assist; rolling walker Pt to ambulate 3-4x/daily with 1 assist; walker or trial without device Please encourage up to chair for meal times as able. Pt seen for evaluation today in the [facility]. Pt in the bed at start of [...] Total time: 37 (eval) minutes Time IN/OUT: 5378-2449 ZAIDA DUBOSE PT Pager: [phone] Physical Therapy Inpatient Rehabilitation Department * Gagan [...] via air ambulance to [facility] on 07/29 for LHC and LOW to LAD for 100% occlusion. TTE showed apical akinesis and inferior hypokinesis with EF 20%. RHC showed elevated filling pressures. Impella placed and P-level 6 at time of transfer to [facility]. CI initially 1.97, improved to [...] Progress Note Patient info: Name: Korey Montoya DOB: 1950 PCP: Alexia Mtz APRN PCP phone number: [phone] Date of Admission: 07/29/2024 ( Hospital Day 4 days ) Attending:Bridgette Stauffer MD ID: Korey Montoya is a 74 y.o. male w/ PMH of hypertension, HLD, and BPH on Hospital Day4 for chief concern of chest pain after being found to have ST elevations on EKG. Patient transferred via air ambulance to [facility] on 07/29 for LHC and [...] 07/29/24 1621 PHART 7.48* 7.44 7.38 7.37 [id number] 29* 29* 34* 36 PO2ART 71* 109* 141* 71* CSR1FKV 20.6 19.4* 19.5* 20.4 VBG (Venous Blood Gas) Recent Labs 07/29/24 1401 PHVEN 7.30* PO2VEN 39 JHW5CVU 20.1* Mixed Venous Sat No results for input(s): J3MDLR4 in the last 168 hours. Objective: Vitals [...] dry and intact 07/30/24 06 Securement catheter securement device utilized 07/29/241999 PA Catheter Markings (cm) 70 07/29/241999 Phlebitis 0-->no symptoms 07/30/24 06 Infiltration 0-->no symptoms 07/30/24 06 Waveform normal 07/30/24 06 Pressure Catheter Interventions [...] 08/05/24 07/29/24 1400 Phlebitis 0-->no symptoms 07/30/24 06 [...] 0-->no symptoms 07/30/24 06 Infiltration 0-->no symptoms 07/30/24599 Site Signs/Symptoms no [...] 81.2* 82.0* 82.1* 82.4* 83.4 Recent Labs 08/02/2441908/01/24203808/01/2420 08/01/2441707/31/2410707/30/24200207/30/24 1508 07/30/2421007/29/24201007/29/24 1403 NA 139 -- -- 137 140 -- 141 135 -- 138 CL 108* -- -- 108* 110* -- 109* 105 -- 104 CO2 23 -- -- * 24 -- 21* 19* -- 19* K [...] 07/29/24 1621 PHART 7.48* 7.44 7.38 7.37 PHV3MUZ 29* 29* 34* 36 PO2ART 71* 109* 141* 71* GAK2DPD 20.6 19.4* 19.5* 20.4 VBG (Venous Blood Gas) Recent Labs 07/29/24 1401 PHVEN 7.30* PO2VEN 39 PJA5OJS 20.1* Mixed Venous Sat No results for input(s): B9JYLU0 in the last 168 hours. Microbiology: Microbiology Results (Last 30 days) Procedure Component Value Units Date/Time Blood culture [[id number]] Collected: 07/29/24 160 Lab Status: Preliminary result Specimen: Blood, Venous Updated: 08/01/24 170 Blood Culture No growth at 72 hours Blood culture [[id number]] Collected: 07/29/241607 Lab Status: Preliminary result Specimen: Blood, Venous Updated: 08/01/24 170 Blood Culture No growth at 72 hours Imaging: Results for orders placed or performed during the hospital encounter of 07/29/24 XR Chest One View (Exam End: 07/29/2024 2:30 PM) Result Value WORKSTATION ID [id number] Impression 1. No pulmonary edema. 2. No pleural effusion. 3. No pneumothorax. Thank you for letting us participate in the care of this patient. If you are a health care provider and have any questions regarding this report, please contact the number below. For patients who have questions please contact the health ambulatory care nurse that requested your imaging first. Electronically signed by: Chris Candelaria MD, [facility] ([phone]), at 07/29/2024 3:21 PM TTE ( 07/30/24) [...] Compared to the overnight study by the distribution dispatcher fellow the impella position is stable. The [...] via air ambulance to [facility] on 07/29 for LHC and [...] Ornelas MD Internal Medicine, PGY-1 Cardiology, [facility] 08/02/24 12:45 PM CARDIOLOGY STAFF NOTE I [...] Transfer to floor. Krystal Parker MD, [facility] Staff Regional Manager roll hand * Gagan Catherine MD - 08/01/2024 11:12 [...] via air ambulance to [facility] on 07/29 for LHC and LOW to LAD for 100% occlusion. TTE showed apical akinesis and inferior hypokinesis with EF 20%. RHC showed elevated filling pressures. Impella placed and P-level 6 at time of transfer to [facility]. CI initially 1.97, improved to 2.2 After impella. Received about 3 L of fluid during procedural course. Patient initially required norepinephrine 30, epinephrine 10, and vasopressin 0.04 for hemodynamic support, which was weaned upon arrival to [facility] to norepinephrine 20and levo 0.04 [...] PCP: Alexia Mtz APRN PCP phone number: [phone] Date of Admission: 07/29/2024 ( Hospital Day 3 days ) Attending:Krystal Parker MD ID: Korey Montoya is a 74 y.o. male w/ PMH of hypertension, HLD, and BPH on Hospital Day3 for chief concern of chest pain after being found to have ST elevations on EKG. Patient transferred via air ambulance to [facility] on 07/29 for LHC and [...] 07/29/24 1621 PHART 7.48* 7.44 7.38 7.37 [id number] 29* 29* 34* 36 PO2ART 71* 109* 141* 71* BBM8SKN 20.6 19.4* 19.5* 20.4 VBG (Venous Blood Gas) Recent Labs 07/29/24 1401 PHVEN 7.30* PO2VEN 39 OSD1ICI 20.1* Mixed Venous Sat No results for input(s): B5PFAA1 in the last 168 hours. PA Catheter [...] Intake/Output Summary (Last 24 hours) at 08/01/2024 07 Last data filed at 08/01/2024 0600 Gross [...] Phlebitis 0-->no symptoms 07/30/24599 Infiltration 0-->no symptoms 07/30/24 06 Site Signs/Symptoms no redness;no swelling;no warmth;no pain;no palpable cord;no streak formation;no drainage 07/29/241999 PIV 07/29/24 1300 18 gauge cephalic vein (lateral side of arm), left (Active) Indication/Daily Review of Necessity fluid therapy intermittent;medication therapy intermittent 07/29/241999 Site Preparation/Maintenance dressing: dry and intact 07/30/24 06 Securement site guard in place 07/29/241999 Patency/Maintenance flushed without difficulty 07/29/241999 Dressing change due 07/29/24 07/29/24 1400 Phlebitis 0-->no symptoms 07/30/24599 Infiltration 0-->no symptoms 07/30/24 06 Site Signs/Symptoms [...] Phlebitis 0-->no symptoms 07/30/24599 Infiltration 0-->no symptoms 07/30/24 06 Site Signs/Symptoms no redness;no swelling;no warmth;no pain;no palpable cord;no streak formation;no drainage 07/29/241999 Pressure Catheter Interventions line leveled/zeroed;system flushed 07/29/241999 Labs: Recent Labs 08/01/24 0418 07/31/24 0108 07/30/24 0211 07/29/24 1403 07/29/24 1246 WBC 8.51 10.25* 11.25* 19.50* -- HGB 11.2* 11.2* 12.2* 13.1* -- HCT 33.8* 33.9* 37.1* 40.1* 39.0* PLATELET 94* 109* 166 236 -- MCV 82.0* 82.1* 82.4* 83.4 -- Recent Labs 08/01/24 0418 07/31/24 0108 07/30/24200207/30/24 1508 07/30/24 0211 07/29/24201007/29/24 1403 NA 137 140 -- 141 135 [...] Labs 07/31/24 2041 07/31/24 1104 07/31/24 0747 07/30/24200207/30/24 1823 07/30/24 1708 07/30/24 1117 07/30/24 0740 07/29/24200807/29/24 1757 07/29/24 1619 POCGLU 73 82 82 86 93 78 97 111 142 166 185 Heme No results for input(s): LDH, HAPTOGLOBIN, URICACID in the last 168 hours. ABG (Arterial Blood Gas) Recent Labs 07/31/24 0829 07/30/24 0816 07/30/24 0057 07/29/24 1621 PHART 7.48* 7.44 7.38 7.37 [id number] 29* 29* 34* 36 PO2ART 71* 109* 141* 71* RST4EPL 20.6 19.4* 19.5* 20.4 VBG (Venous Blood Gas) Recent Labs 07/29/24 1401 PHVEN 7.30* PO2VEN 39 XJQ2SWD 20.1* Mixed Venous Sat No results for input(s): H2LYZD3 in the last 168 hours. Microbiology: Microbiology Results (Last 30 days) Procedure Component Value Units Date/Time Blood culture [[id number]] Collected: 07/29/241607 Lab Status: Preliminary result Specimen: Blood, Venous Updated: 07/31/241700 Blood Culture No growth at 48 hours Blood culture [[id number]] Collected: 07/29/241607 Lab Status: Preliminary result Specimen: Blood, Venous Updated: 07/31/241700 Blood Culture No growth at 48 hours Imaging: Results for orders placed or performed during the hospital encounter of 07/29/24 XR Chest One View (Exam End: 07/29/2024 2:30 PM) Result Value WORKSTATION ID [id number] Impression 1. No pulmonary edema. 2. No pleural effusion. 3. No pneumothorax. Thank you for letting us participate in the care of this patient. If you are a health care provider and have any questions regarding this report, please contact the number below. For patients who have questions please contact the health ambulatory care nurse that requested your imaging first. Electronically signed by: Chris Candelaria MD, [facility] ([phone]), at 07/29/2024 3:21 PM TTE ( 07/30/24) [...] Compared to the overnight study by the distribution dispatcher fellow the impella position is stable. The [...] via air ambulance to [facility] on 07/29 for LHC and [...] Ornelas MD Internal Medicine, PGY-1 Cardiology, CV 08/01/24 7:13 AM CARDIOLOGY STAFF NOTE I [...] him; questions answered. Krystal Parker MD, [facility] Staff Regional Manager roll hand * Krystal Parker MD - 07/31/2024 1:06 [...] via air ambulance to [facility] on 07/29 for LHC and LOW to LAD for 100% occlusion. TTE showed apical akinesis and inferior hypokinesis with EF 20%. RHC showed elevated filling pressures. Impella placed and P-level 6 at time of transfer to [facility]. CI initially 1.97, improved to 2.2 After impella. Received about 3 L of fluid during procedural course. Patient initially required norepinephrine 30, epinephrine 10, and vasopressin 0.04 for hemodynamic support, which was weaned upon arrival to [facility] to norepinephrine 20and levo 0.04 [...] PCP: Alexia Mtz APRN PCP phone number: [phone] Date of Admission: 07/29/2024 ( Hospital Day 2 days ) Attending:Krystal Parker MD ID: Korey Montoya is a 74 y.o. male w/ PMH of hypertension, HLD, and BPH on Hospital Day2 for chief concern of chest pain after being found to have ST elevations on EKG. Patient transferred via air ambulance to [facility] on 07/29 for LHC and [...] Medications: Infusions: Continuous Infusions: DOBUTamine 2.5 mcg/kg/min (07/31/24 0800) dextrose 5% 1,000 mL with sodium bicarbonate 25 mEq infusion 12 mL/hr at 07/31/24 0800 AMIOdarone 0.5 mg/min (07/31/24799) heparin (porcine) infusion 7 Units/kg/hr (07/31/24799) ABG (Arterial Blood Gas) Recent Labs 07/30/24 0816 07/30/24 0057 07/29/24 1621 PHART 7.44 7.38 7.37 CHA8IBI 29* 34* 36 PO2ART 109* 141* 71* ZFI3LTK 19.4* 19.5* 20.4 VBG (Venous Blood Gas) Recent Labs 07/29/24 1401 PHVEN 7.30* PO2VEN 39 MVO3LLG 20.1* Mixed Venous Sat No results for input(s): L4HIRB5 in the last 168 hours. PA Catheter [...] Intake/Output Summary (Last 24 hours) at 07/31/2024 08 Last data filed at 07/31/2024 0800 Gross [...] due 08/05/24 07/29/24 1400 Phlebitis 0-->no symptoms 07/30/2400 Infiltration 0-->no symptoms 07/30/24599 Site Signs/Symptoms no [...] 06 Dressing Status Clean;Dry;Intact 07/30/24 06 Dressing Change Due 08/05/24 07/29/24 1400 LDA [...] without difficulty;blood return present 07/29/241999 Waveform normal 11/18/24 0600 Phlebitis 0-->no symptoms 07/30/24 06 Infiltration 0-->no symptoms 07/30/24 06 Site Signs/Symptoms no redness;no swelling;no warmth;no pain;no palpable cord;no streak formation;no drainage 07/29/241999 Pressure Catheter Interventions line leveled/zeroed;system flushed 07/29/241999 Labs: Recent Labs 07/31/24 01007/30/2421007/29/24 1403 07/29/24 1246 07/29/24 1212 WBC 10.25* [...] 0057 07/29/24 1621 PHART 7.44 7.38 7.37 [id number] 29* 34* 36 PO2ART 109* 141* 71* IJN7JMK 19.4* 19.5* 20.4 VBG (Venous Blood Gas) Recent Labs 07/29/24 1401 PHVEN 7.30* PO2VEN 39 RZD5CXR 20.1* Mixed Venous Sat No results for input(s): U0FGJM1 in the last 168 hours. Microbiology: Microbiology Results (Last 30 days) Procedure Component Value Units Date/Time Blood culture [[id number]] Collected: 07/29/241607 Lab Status: Preliminary result Specimen: Blood, Venous Updated: 07/30/241700 Blood Culture No Growth at 18-24 hrs. Blood culture [[id number]] Collected: 07/29/241607 Lab Status: Preliminary result Specimen: Blood, Venous Updated: 07/30/241700 Blood Culture No Growth at 18-24 hrs. Imaging: Results for orders placed or performed during the hospital encounter of 07/29/24 XR Chest One View (Exam End: 07/29/2024 2:30 PM) Result Value WORKSTATION ID [id number] Impression 1. No pulmonary edema. 2. No pleural effusion. 3. No pneumothorax. Thank you for letting us participate in the care of this patient. If you are a health care provider and have any questions regarding this report, please contact the number below. For patients who have questions please contact the health ambulatory care nurse that requested your imaging first. Electronically signed by: Chris Candelaria MD, [facility] ([phone]), at 07/29/2024 3:21 PM TTE ( 07/30/24) [...] Compared to the overnight study by the distribution dispatcher fellow the impella position is stable. The [...] Intravenous Daily Continuous Infusions: DOBUTamine 2.5 mcg/kg/min (07/31/24799) dextrose 5% 1,000 mL with sodium bicarbonate 25 mEq infusion 12 mL/hr at 07/31/24799 AMIOdarone 0.5 mg/min (07/31/24799) heparin (porcine) infusion 7 Units/kg/hr (07/31/24799) PRN Meds:.influenza vaccine (65 yrs +), acetaminophen, [...] via air ambulance to [facility] on 07/29 for LHC and [...] 0513 65.4 kg (144 lb 2.9 oz) 11/17/24 1320 64.1 kg (141 lb 5 oz) [...] work to optimize volume status while continuing sgthhcr-lhtfqc-opvirgvvli therapies at this time. Obtain comprehensive TTE. [...] via air ambulance to [facility] on 07/29 for LHC and LOW to LAD for 100% occlusion. TTE showed apical akinesis and inferior hypokinesis with EF 20%. RHC showed elevated filling pressures. Impella placed and P-level 6 at time of transfer to [facility]. CI initially 1.97, improved to 2.2 After impella. Received about 3 L of fluid during procedural course. Patient initially required norepinephrine 30, epinephrine 10, and vasopressin 0.04 for hemodynamic support, which was weaned upon arrival to [facility] to norepinephrine 20and levo 0.04 [...] PCP: Yoel Artis APRN PCP phone number: [phone] Date of Admission: 07/29/2024 ( Hospital Day 1 day ) Attending:Aubree Silverio MD ID: Korey Montoya is a 74 y.o. male w/ PMH of hypertension, HLD, and BPH on Hospital Day1 for chief concern of chest pain after being found to have ST elevations on EKG. Patient transferred via air ambulance to [facility] on 07/29 for LHC and [...] 0057 07/29/24 1621 PHART 7.44 7.38 7.37 [id number] 29* 34* 36 PO2ART 109* 141* 71* GOP8INE 19.4* 19.5* 20.4 VBG (Venous Blood Gas) Recent Labs 07/29/24 1401 PHVEN 7.30* PO2VEN 39 RDV7MRX 20.1* Lactate ( Last 12 hours) 1.3 >> 1.2 Mixed Venous Sat No results for input(s): A2DHOV3 in the last 168 hours. PA Catheter [...] Site Preparation/Maintenance dressing: dry and intact 07/30/24 0600 Securement catheter securement device utilized 07/29/241999 PA [...] Site Assessment Clean;Dry;Intact 07/30/24599 Line Status Infusing 11/18/24 0600 Dressing Status Clean;Dry;Intact 07/30/24 06 Dressing Intervention [...] 82.4* 83.4 -- -- Recent Labs 07/30/24 02107/29/24201007/29/24 1403 NA 135 -- 138 CL 105 [...] 0057 07/29/24 1621 PHART 7.44 7.38 7.37 FCJ8LYX 29* 34* 36 PO2ART 109* 141* 71* UHE1TOY 19.4* 19.5* 20.4 VBG (Venous Blood Gas) Recent Labs 07/29/24 1401 PHVEN 7.30* PO2VEN 39 JDA0XZD 20.1* Mixed Venous Sat No results for input(s): S1HYCT0 in the last 168 hours. Microbiology: Microbiology Results (Last 30 days) Procedure Component Value Units Date/Time Blood culture [[id number]] Collected: 07/29/24 1608 Lab Status: In process Specimen: Blood, Venous Updated: 07/29/24 1626 Blood culture [[id number]] Collected: 07/29/24 1608 Lab Status: In process Specimen: Blood, Venous Updated: 07/29/24 1615 Imaging: Results for orders placed or performed during the hospital encounter of 07/29/24 XR Chest One View (Exam End: 07/29/2024 2:30 PM) Result Value WORKSTATION ID [id number] Impression 1. No pulmonary edema. 2. No pleural effusion. 3. No pneumothorax. Thank you for letting us participate in the care of this patient. If you are a health care provider and have any questions regarding this report, please contact the number below. For patients who have questions please contact the health ambulatory care nurse that requested your imaging first. Medications Scheduled [...] via air ambulance to [facility] on 07/29 for LHC and [...] via air ambulance to [facility] on 07/29 for LHC and [...] via air ambulance to [facility] for further management and C demo nstrated 100% occlusion. No significant RCA, LMCA, or LCX disease. LOW placed in LAD with some residual distal disease meriting placement of overlapping distal stent. TTE showed apical akinesis and inferior hypokinesis with EF 20%. RHC showed elevated filling pressures. Impella placed and P-level 6 at time of transfer to [facility]. CI initially 1.97, improved to 2.2 After impella. Received about 3 L of fluid during procedural course. Patient initially required norepinephrine, epinephrine, and vasopressin for hemodynamic support, which was weaned upon arrival to [facility] to norepinephrine 20 and levo [...] (WRVU 4.57) performed by Brandan Mcgovern MD [facility] ENDOSCOPY Significant Family History: Family History Problem [...] mouth. Past Week nitroGLYcerin (NITROLINGUAL) 400 mcg/spray [place], Non-Aerosol 1 spray to anus for proctalgia [...] 3.5 guiding catheter and a 3.[address] [facility] 20 Mhz using Manual pullback. Imaging [...] priority for the procedure was Emergent. The [facility] indication for the procedure was STEMI-Immediate PCI [...] atmospheres. A premounted 3.00 x 22 mm [place] (LOW) was deployed with a maximum inflation [...] atmospheres. A premounted 3.00 x 08 mm [facility] [place] (LOW) was deployed with a maximum inflation [...] a limited study performed by a fellow distribution dispatcher to evaluate for cardiogenic shock with impella [...] Compared to the overnight study by the distribution dispatcher fellow the impella position is stable. The [...] via air ambulance to [facility] on 07/29 for LHC and [...] PCP: Yoel Artis APRN PCP phone number: [phone] Date of Admission: 07/29/2024 ( Hospital Day 0 days ) Attending:Aubree Silverio MD ID: Korey Montoya is a 74 y.o. male w/ PMH of hypertension, HLD, and BPH who presents for chief concern of chest pain after being found to have ST elevations on EKG. Patient transferred via air ambulance to [facility] on 07/29 for LHC and LOW to LAD for 100% occlusion. HPI: Korey Montoya is a 74 y.o. male w/ PMH of hypertension, HLD, and BPH who presents for chief concern of chest pain after being found to have ST elevations on EKG. Patient transferred via air ambulance to [facility] on 07/29 for LHC and LOW to LAD for 100% occlusion. 2 hours episode yesterday of chest pain that spontaneously resolved. Then awoke this AM at approximately 0600 asymptomatic. Then suddenly at 6:30 began having substernal chest pain along with bilateral arm discomfort. Attempted to burp and vomit, concerning this was due to gas, noting pain was severe /10. Aching in character. Waited for pain to spontaneously resolve (noting previous episodes of chest pain without activity). As pain did not resolve, presented to OSH at approximately 9:30 AM. Hewas Found to have anterior, inferior, and lateral ST elevation on EKG. Was transferred via air ambulance to [facility] for further management and LHC [...] (WRVU 4.57) performed by Brandan Mcgovern MD [facility] ENDOSCOPY Family History Family History Problem Relation [...] Blood Gas) No results for input(s): PHART, ILW3VUM, PO2ART, TOJ1YSG, LACTATEVEN, BEN2GDU, PFRATIOART2 in the last 168 hours. VBG (Venous Blood Gas) Recent Labs 07/29/24 1401 PHVEN 7.30* PO2VEN 39 MKZ5EJM 20.1* Mixed Venous Sat No results for input(s): G3QHKK0 in the last 168 hours. PA Catheter [...] Blood Gas) No results for input(s): PHART, EIB6PLW, PO2ART, XXM8PBX, LACTATEVEN, SGY9VPN, PFRATIOART2 in the last 168 hours. VBG (Venous Blood Gas) Recent Labs 07/29/24 1401 PHVEN 7.30* PO2VEN 39 OUQ6LCJ 20.1* Mixed Venous Sat No results for input(s): F4QJVW3 in the last 168 hours. Microbiology: Microbiology [...] via air ambulance to [facility] on 07/29 for LHC. Found to have 100% occlusion of LAD for which he underwent LOW to LAD.Otherwise no other significant vessel disease. Fahad is currently hemodynamically tenuous but improving upon admission to [facility], requiring hemodynamic support with norepinephrine and vasopressin at time of admission along with mechanical support with Impella device. Reassuringly, he demonstrates decreasing pressor requirements since admission to [facility], with epinephrine completely weaned. He [...] Bernardo Amos MD Internal Medicine, PGY-3 Cardiology, [facility] 07/29/24 3:14 PM Cardiology Attending [...] FACP, FACC Section of Cardiovascular Medicine [facility] [employer] Basiccoat check attendant [facility] This patient meets or has met medical [...] to the planned procedure. Hand Hygiene: The solvent station attendant did perform hand hygiene prior to arterial [...] ease. Good wave form. Ivan Hernandez MD Real Estate Rental Agent Associated attestation - Rolando Yeh MD - [...] Fahad was quite active prior to his PR. 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 Given parameters for home exercise. He follows a heart healthy diet and is not overweight. His lipids are wnl. Participation in an outpatient cardiac rehabilitation program at [facility] was discussed. Patient agrees to a [...] No Patient is insured through: Primary Insurance: A[employer] MANAGED MEDICARE Payor: AARP MANAGED MEDICARE / Plan: [facility] COMPLETE / Product Type: *No [...] Date of Discharge: 08/04/2024 Gaby Wong RN, Pager-[phone] * Initial Assessments - Char Meza OT - 08/03/2024 10:00 AM EST Occupational Therapy Evaluation Patient profile: Korey Montoya is a 74 y.o. male admitted on 07/29/2024 w/ PMH of hypertension, HLD, and BPH who presents for chief concern of chest pain after being found to have ST elevations onEKG. Patient transferred via air ambulance to [facility] on 07/29 for LHC and LOW to LAD for 100% occlusion. Past Medical History: Diagnosis Date ADHD HLD (hyperlipidemia) HTN (hypertension) Tremor Past Surgical History: Procedure Laterality Date HAND SURGERY PRO COLONOSCOPY, REMV LESN, SNARE N/A 08/30/2023 COLONOSCOPY, POLYPECTOMY, REMOVAL LESION BY SNARE (WRVU 4.57) performed by Brandan Mcgovern MD [facility] ENDOSCOPY Social History: Patient lives with his . Home Setup: 2 NAOMI to a 1 level home. DME: none Baseline ADL/Mobility: Independent with ADLs and IADLs. Enjoys walking. able assist as needed. Precautions/Special Considerations: Full code. Risk for falls. Subjective: I have access to an [employer] gym. (Educated to wait for MD to [...] evaluation only Total Minutes, Occupational Therapy: 14 ([id number] (evaluation)) 2017 OT Evaluation Code Rationale: Diagnosis [...] and measurable assessment of functional outcome. Pager: [phone] Char Meza OT 08/03/2024 Occupational Therapy Rehabilitation [...] (Interventions Implemented as Appropriate) Flowsheets (Taken 08/01/2024 9657) Outcome Summary: A+O, no pain. NSR. MAP [...] Procedure Note: Patient Name: Korey Montoya : [id number] MR#: [id number] Case Date: 07/31/2024 Surveillance Inspector: Surgeons and Role: * Maldonado Luis MD - Primary * Quinten Charles PA - Physician Scalemaker Preoperative diagnosis: shock, impella Postoperative diagnosis: * same * Procedure(s) performed: Impella removal form right ICING MIXER Access: Right ICING MIXER A time-out was conducted prior to the [...] Admitted From: Transfer from another hospital Location: [facility] Reason for Hospitalization: chest pain Past medical History: Past Medical History: Diagnosis Date ADHD HLD (hyperlipidemia) HTN (hypertension) Tremor Hospitalizations Within the Past 30 Days: no previous admission in last 30 days Current Decision-Making Capacity: Self If AD's have not been completed the following surrogate would be surrogate decision maker per [place] surrogate decision making law. (Only good for 180 days) Any patient receiving care in [place] must abide by [place] law. The hierarchy for surrogate decision making [...] (i) The agent with financial power of attorney general or a conservator appointed in accordance with [...] were you homeless or living in a half-way (including now)?: No In the past 12 months has the electric, gas, oil, or water company threatened [...] it) Home Address confirmed as: Mailing Address: [address] [address] Physical Address: [address] [place] [address] Social & Family Supports: All names listed [...] points: Addiction likely Health/Prescription Coverage: Primary Insurance: [facility] MANAGED MEDICARE Payor: AARP MANAGED MEDICARE / Plan: [facility] MANAGED MEDICARE COMPLETE / Product Type: *No Product type* / Secondary Insurance: N/A ; Prescription Coverage: Yes Preferred Pharmacy: [address] - [address] [address] [place] Status: Patient is a : No Primary Care Provider confirmed: Alexia Mtz, CREDIT INVESTIGATOR [phone] Patient/Caregiver Goals of Treatment: return home Potential [...] and coordination of care as indicated. Kelley Melgar RN * Plan of Care - Chase [...] Pain (Cardiac Catheterization) Goal: Acceptable Pain Control 07/30/2024529 by Chase Castro RN Outcome: Ongoing (Interventions Implemented as Appropriate) 07/30/2024528 by Chase Castro RN Outcome: Ongoing (Interventions Implemented as Appropriate) * Plan of Care - Ary Malone RN - 07/29/2024 6:25 PM EST Pt arrived from operations label clerk @ 1400. CXR and EKG completed. Impella [...] Procedure Note: Patient Name: Korey Montoya : [id number] MR#: [id number] Case Date: 07/29/2024 Surveillance Inspector: Surgeons and Role: * Vahe Marvin MD - Primary * Susannah Watts PA - Physician Scalemaker Preoperative diagnosis: STEMI Postoperative diagnosis: * STEMI, LAD Artery * * Cardiogenic Shock * Procedure(s) performed: [facility] Coronary angiogram Stent insertion coronary IVUS coronary Venous line insert [facility] [place] Colette Catheter Vascular closure device Ventricular assist [...] x 22 mm to 14 deonna [place] with LIZ 3 flow. Residual distal disease at distal stent, overlapping distal stent was inserted with 3.0 x 8 mm [place]. Systolic's in the 80's sustained. Patient re [...] 10:00 AM EST Office Visit Cardiology at [address] [phone] Mushtaq Murphy, FREDRICK Scheduled Orders Name Type Priority Associated Diagnoses [...] PM EST CRP, ACUTE INFLAMMATION Routine 07/29/20 2:03 PM EST HC PARTIAL THROMBOPLASTIN TIME [...] CBC (with Diff) (08/04/2024 6:08 AM EST) White Blood Cell 7.27 4.00 - 9.50 x10(3)/mc L 08/04/2024 6:39 AM [facility] Red Blood Cell 4.28(L) 4.58 - 5.54 x10(6)/mc L 08/04/2024 6:39 AM [facility] Hemoglobin 11.6(L) 13.7 - 16.5 g/dL 08/04/2024 6:39 AM [facility] Hematocrit 34.8(L) 40.5 - 48.5 % 08/04/2024 6:39 AM [facility] Mean Cell Volume 81.3(L) 82.9 - 93.1 fL 08/04/2024 6:39 AM [facility] Mean Cell Hemoglobin 27.1(L) 27.5 - 32.1 pg 08/04/2024 6:39 AM [facility] Mean Cell Hemoglobin Concentration 33.3 32.0 - 35.7 g/dL 08/04/2024 6:39 AM [facility] Platelet 178 145 - 357 x10(3)/mc L 08/04/2024 6:39 AM [facility] Mean Platelet Volume 10.6 7.6 - 12.9 fL 08/04/2024 6:39 AM [facility] RDW Standard Deviation 42.0 36.0 - 45.0 fL 08/04/2024 6:39 AM [facility] RDW coefficient of variation 14.3(H) 11.4 - 13.8 % 08/04/2024 6:39 AM [facility] NRBC% auto 0.0 % 08/04/2024 6:39 AM [facility] NRBC Absolute <0.01 <0.01 x10(3)/mc L 08/04/2024 6:39 AM [facility] Neutrophil % 72.1 % 08/04/2024 6:39 AM [facility] Neutrophil Absolute (ANC) - Automated 5.24 1.70 - 6.10 x10(3)/mc L 08/04/2024 6:39 AM [facility] Lymph % 16.8 % 08/04/2024 6:39 AM [facility] Lymph Absolute 1.22 0.90 - 3.20 x10(3)/mc L 08/04/2024 6:39 AM [facility] Monocyte % 8.5 % 08/04/2024 6:39 AM [facility] Monocyte Absolute 0.62 0.30 - 0.90 x10(3)/mc L 08/04/2024 6:39 AM [facility] Eos % 1.9 % 08/04/2024 6:39 AM [facility] Eos Absolute 0.14 0.00 - 0.40 x10(3)/mc L 08/04/2024 6:39 AM [facility] Basophil % 0.4 % 08/04/2024 6:39 AM [facility] Baso Absolute <0.04 0.00 - 0.10 x10(3)/mc L 08/04/2024 6:39 AM [facility] Immature Gran % 0.3 % 6:39 AM [facility] Immature Gran Absolute <0.04 0.00 - 0.04 x10(3)/mc L 08/04/2024 6:39 AM [facility] Blood VENOUS BLOOD SPECIMEN / Unknown Venipuncture / Unknown 08/04/2024 6:08 AM EST 08/04/2024 6:19 AM EST Bridgette Stauffer MD HEMATOLOGY ORDERABLE S [facility] [place] [address] * Magnesium (08/04/2024 6:08 AM EST) Magnesium 0.85 0.69 - 1.07 mMol/L 08/04/2024 7:07 AM [facility] Blood VENOUS BLOOD SPECIMEN / Unknown Venipuncture / Unknown 08/04/2024 6:08 AM EST 08/04/2024 6:19 AM EST Bridgette Stauffer MD CHEMISTRY ORDERABLES [facility] [place] [address] * Basic Metabolic Panel (08/04/2024 6:08 AM EST) Glucose 93 65 - 199 mg/dL 08/04/2024 7:07 AM [facility] Comment:Glucose Concentratio n >=200 mg/dL plus symptoms is consistent with Diabetes Mellitus. Blood Urea Nitrogen 14 10 - 20 mg/dL 08/04/2024 7:07 AM [facility] Creatinine 1.07 0.80 - 1.50 mg/dL 08/04/2024 7:07 AM [facility] Sodium 138 135 - 145 mMol/L 08/04/2024 7:07 AM [facility] Potassium 4.3 3.5 - 5.0 mMol/L 08/04/2024 7:07 AM [facility] Chloride 107 98 - 107 mMol/L 08/04/2024 7:07 AM [facility] Carbon Dioxide 23 22 - 31 mMol/L 08/04/2024 7:07 AM [facility] Anion Gap 8 5 - 15 mMol/L 08/04/2024 7:07 AM [facility] Calcium 8.5 8.5 - 10.5 mg/dL 08/04/2024 7:07 AM [facility] Est Glomerular Filtration Rate - Male 74 mL/min/1. 73 m?? 08/04/2024 7:07 AM [facility] Comment: This patient's estimated GFR [...] AM EST Bridgette Stauffer MD CHEMISTRY ORDERABLES [facility] [place] [address] * (ABNORMAL) CBC (with Diff) (08/03/2024 5:16 AM EST) White Blood Cell 7.85 4.00 - 9.50 x10(3)/mc L 08/03/2024 5:29 AM [facility] Red Blood Cell 4.43(L) 4.58 - 5.54 x10(6)/mc L 08/03/2024 5:29 AM [facility] Hemoglobin 11.8(L) 13.7 - 16.5 g/dL 08/03/2024 5:29 AM [facility] Hematocrit 35.9(L) 40.5 - 48.5 % 08/03/2024 5:29 AM [facility] Mean Cell Volume 81.0(L) 82.9 - 93.1 fL 08/03/2024 5:29 AM [facility] Mean Cell Hemoglobin 26.6(L) 27.5 - 32.1 pg 08/03/2024 5:29 AM [facility] Mean Cell Hemoglobin Concentration 32.9 32.0 - 35.7 g/dL 08/03/2024 5:29 AM [facility] Platelet 142(L) 145 - 357 x10(3)/mc L 08/03/2024 5:29 AM [facility] Mean Platelet Volume 10.5 7.6 - 12.9 fL 08/03/2024 5:29 AM [facility] RDW Standard Deviation 42.5 36.0 - 45.0 fL 08/03/2024 5:29 AM [facility] RDW coefficient of variation 14.2(H) 11.4 - 13.8 % 08/03/2024 5:29 AM [facility] NRBC% auto 0.0 % 08/03/2024 5:29 AM [facility] NRBC Absolute <0.01 <0.01 x10(3)/mc L 08/03/2024 5:29 AM [facility] Neutrophil % 75.2 % 08/03/2024 5:29 AM [facility] Neutrophil Absolute (ANC) - Automated 5.91 1.70 - 6.10 x10(3)/mc L 08/03/2024 5:29 AM [facility] Lymph % 13.4 % 08/03/2024 5:29 AM [facility] Lymph Absolute 1.05 0.90 - 3.20 x10(3)/mc L 08/03/2024 5:29 AM [facility] Monocyte % 9.0 % 08/03/2024 5:29 AM [facility] Monocyte Absolute 0.71 0.30 - 0.90 x10(3)/mc L 08/03/2024 5:29 AM [facility] Eos % 1.7 % 08/03/2024 5:29 AM [facility] Eos Absolute 0.13 0.00 - 0.40 x10(3)/mc L 08/03/2024 5:29 AM [facility] Basophil % 0.4 % 08/03/2024 5:29 AM [facility] Baso Absolute <0.04 0.00 - 0.10 x10(3)/mc L 08/03/2024 5:29 AM EST [facility] Immature Gran % 0.3 % 5:29 AM [facility] Immature Gran Absolute <0.04 0.00 - 0.04 x10(3)/mc L 08/03/2024 5:29 AM [facility] Blood VENOUS BLOOD SPECIMEN / Unknown Venipuncture / Unknown 08/03/2024 5:16 AM EST 08/03/2024 5:23 AM EST Bridgette Stauffer MD HEMATOLOGY ORDERABLE S Performing Organization Address City/[facility]/ZIP Co de Phone Number [facility] [place] [address] * Magnesium (08/03/2024 5:16 AM EST) Pathologist [facility] Magnesium 0.89 0.69 - 1.07 mMol/L 08/03/2024 5:56 AM [facility] Blood VENOUS BLOOD SPECIMEN / Unknown Venipuncture / Unknown 08/03/2024 5:16 AM EST 08/03/2024 5:23 AM EST Bridgette Stauffer MD CHEMISTRY ORDERABLES Performing Organization Address City/[facility] Co de Phone Number [facility] [place] [address] * (ABNORMAL) Basic Metabolic Panel (08/03/2024 5:16 AM EST) Glucose 98 65 - 199 mg/dL 08/03/2024 5:56 AM [facility] Comment:Glucose Concentratio n >=200 mg/dL plus symptoms is consistent with Diabetes Mellitus. Blood Urea Nitrogen 16 10 - 20 mg/dL 08/03/2024 5:56 AM [facility] Creatinine 0.85 0.80 - 1.50 mg/dL 08/03/2024 5:56 AM [facility] Sodium 137 135 - 145 mMol/L 08/03/2024 5:56 AM EST [facility] Potassium 4.5 3.5 - 5.0 mMol/L 08/03/2024 5:56 AM [facility] Chloride 106 98 - 107 mMol/L 08/03/2024 5:56 AM [facility] Carbon Dioxide 21(L) 22 - 31 mMol/L 08/03/2024 5:56 AM [facility] Anion Gap 10 5 - 15 mMol/L 08/03/2024 5:56 AM [facility] Calcium 8.3(L) 8.5 - 10.5 mg/dL 08/03/2024 5:56 AM [facility] Est Glomerular Filtration Rate - Male 92 mL/min/1. 73 m?? 08/03/2024 5:56 AM [facility] Comment: This patient's estimated GFR [...] AM EST Bridgette Stauffer MD CHEMISTRY ORDERABLES [facility] [place] [address] * POC, GLUCOSE (08/02/2024 7:47 AM EST) Glucometer, POC 89 65 - 199 mg/dL 08/02/2024 7:47 AM EST [facility] Comment:Supplemental ranges: <140 mg/dL before meals <180 mg/dL all other times of the day. Blood CAPILLARY BLOOD / Unknown 08/02/2024 7:47 AM EST 08/02/2024 7:47 AM EST Krystal Parker MD POINT OF CARE TEST O RDERABLES [facility] [place] [address] * (ABNORMAL) CBC (with Diff) (08/02/2024 4:20 AM EST) White Blood Cell 8.51 4.00 - 9.50 x10(3)/mc L 08/02/2024 4:50 AM [facility] Red Blood Cell 4.41(L) 4.58 - 5.54 x10(6)/mc L 08/02/2024 4:50 AM [facility] Hemoglobin 12.2(L) 13.7 - 16.5 g/dL 08/02/2024 4:50 AM [facility] Hematocrit 35.8(L) 40.5 - 48.5 % 08/02/2024 4:50 AM [facility] Mean Cell Volume 81.2(L) 82.9 - 93.1 fL 08/02/2024 4:50 AM [facility] Mean Cell Hemoglobin 27.7 27.5 - 32.1 pg 08/02/2024 4:50 AM [facility] Mean Cell Hemoglobin Concentration 34.1 32.0 - 35.7 g/dL 08/02/2024 4:50 AM [facility] Platelet 111(L) 145 - 357 x10(3)/mc L 08/02/2024 4:50 AM [facility] Mean Platelet Volume 11.1 7.6 - 12.9 fL 08/02/2024 4:50 AM [facility] RDW Standard Deviation 41.9 36.0 - 45.0 fL 08/02/2024 4:50 AM [facility] RDW coefficient of variation 14.1(H) 11.4 - 13.8 % 08/02/2024 4:50 AM [facility] NRBC% auto 0.0 % 08/02/2024 4:50 AM [facility] NRBC Absolute <0.01 <0.01 x10(3)/mc L 08/02/2024 4:50 AM [facility] Neutrophil % 77.7 % 08/02/2024 4:50 AM [facility] Neutrophil Absolute (ANC) - Automated 6.62(H) 1.70 - 6.10 x10(3)/mc L 08/02/2024 4:50 AM [facility] Lymph % 11.9 % 08/02/2024 4:50 AM [facility] Lymph Absolute 1.01 0.90 - 3.20 x10(3)/mc L 08/02/2024 4:50 AM [facility] Monocyte % 8.2 % 08/02/2024 4:50 AM [facility] Monocyte Absolute 0.70 0.30 - 0.90 x10(3)/mc L 08/02/2024 4:50 AM [facility] Eos % 1.4 % 08/02/2024 4:50 AM [facility] Eos Absolute 0.12 0.00 - 0.40 x10(3)/mc L 08/02/2024 4:50 AM [facility] Basophil % 0.4 % 08/02/2024 4:50 AM [facility] Baso Absolute <0.04 0.00 - 0.10 x10(3)/mc L 08/02/2024 4:50 AM [facility] Immature Gran % 0.4 % 4:50 AM [facility] Immature Gran Absolute <0.04 0.00 - 0.04 x10(3)/mc L 08/02/2024 4:50 AM [facility] Blood VENOUS BLOOD SPECIMEN / Unknown Venipuncture / Unknown 08/02/2024 4:20 AM EST 08/02/2024 4:37 AM EST Bridgette Stauffer MD HEMATOLOGY ORDERABLE S [facility] [place] [address] * Magnesium (08/02/2024 4:20 AM EST) Magnesium 0.79 0.69 - 1.07 mMol/L 08/02/2024 5:06 AM [facility] Blood VENOUS BLOOD SPECIMEN / Unknown Venipuncture / Unknown 08/02/2024 4:20 AM EST 08/02/2024 4:37 AM EST Bridgette Stauffer MD CHEMISTRY ORDERABLES Performing Organization Address City/[facility]/ZIP Co de Phone Number [facility] [place] [address] * (ABNORMAL) Basic Metabolic Panel (08/02/2024 4:20 AM EST) Glucose 110 65 - 199 mg/dL 08/02/2024 5:06 AM [facility] Comment:Glucose Concentratio n >=200 mg/dL plus symptoms is consistent with Diabetes Mellitus. Blood Urea Nitrogen 12 10 - 20 mg/dL 08/02/2024 5:06 AM [facility] Creatinine 0.90 0.80 - 1.50 mg/dL 08/02/2024 5:06 AM [facility] Sodium 139 135 - 145 mMol/L 08/02/2024 5:06 AM [facility] Potassium 4.0 3.5 - 5.0 mMol/L 08/02/2024 5:06 AM [facility] Chloride 108(H) 98 - 107 mMol/L 08/02/2024 5:06 AM [facility] Carbon Dioxide 23 22 - 31 mMol/L 08/02/2024 5:06 AM [facility] Anion Gap 8 5 - 15 mMol/L 08/02/2024 5:06 AM EST [facility] Calcium 8.1(L) 8.5 - 10.5 mg/dL 08/02/2024 5:06 AM EST [facility] Est Glomerular Filtration Rate - Male 91 mL/min/1. 73 m?? 08/02/2024 5:06 AM EST [facility] Comment: This patient's estimated GFR [...] Stauffer MD CHEMISTRY ORDERABLES Performing Organization Address City/[facility]/ZIP Co de Phone Number [facility] [place] [address] * Potassium (08/01/2024 8:39 PM EST) Potassium 4.0 3.5 - 5.0 mMol/L 08/01/2024 9:21 PM EST [facility] Blood VENOUS BLOOD SPECIMEN / Unknown Venipuncture / Unknown 08/01/2024 8:39 PM EST 08/01/2024 8:51 PM EST Aubree Silverio MD CHEMISTRY ORDERABL ES [facility] [place] [address] * POC, GLUCOSE (08/01/2024 8:35 PM EST) Glucometer, POC 112 65 - 199 mg/dL 08/01/2024 8:36 PM EST [facility] Comment:Supplemental ranges: <140 mg/dL before meals <180 mg/dL all other times of the day. Blood CAPILLARY BLOOD / Unknown 08/01/2024 8:35 PM EST 08/01/2024 8:36 PM EST Krystal Parker MD POINT OF CARE TEST O RDERASHAY [facility] [place] [address] * POC, GLUCOSE (08/01/2024 4:55 PM EST) Glucometer, POC 99 65 - 199 mg/dL 08/01/2024 4:56 PM EST [facility] Comment:Supplemental ranges: <140 mg/dL before meals <180 mg/dL all other times of the day. Blood CAPILLARY BLOOD / Unknown 08/01/2024 4:55 PM EST 08/01/2024 4:56 PM EST Krystal Parker MD POINT OF CARE TEST O JOSH Performing Organization Address [facility]/ZIP Co de Phone Number [facility] [place] [address] * POC, GLUCOSE (08/01/2024 12:42 PM EST) Glucometer, POC 130 65 - 199 mg/dL 08/01/2024 12:43 PM EST [facility] Comment:Supplemental ranges: <140 mg/dL before meals <180 mg/dL all other times of the day. Blood CAPILLARY BLOOD / Unknown 08/01/2024 12:42 PM EST 08/01/2024 12:43 PM EST Krystal Parker MD POINT OF CARE TEST O JOSH Performing Organization Address City/[facility]/ZIP Co de Phone Number [facility] [place] [address] * (ABNORMAL) Cooximetry, POC (08/01/2024 10:45 AM EST) pO2, Coox 32 mmHg 08/01/2024 10:48 AM [facility] Hemoglobin, Coox 12.9(L) 13.7 - 16.5 g/dL 08/01/2024 10:48 AM [facility] Oxyhemoglobin, Coox 66.7 % 08/01/2024 10:48 AM [facility] Carboxyhemoglo bin, Coox 1.1 % 08/01/2024 10:48 AM [facility] Comment: Nonsmokers: 0.5-1.5% COHB ?? Smokers: Variable ??but usually less than 10% ?? Toxic: 20-30% COHB ?? Lethal: Greater than 60% COHB Methemoglobin, Coox 0.3 <=1.5 % 08/01/2024 10:48 AM [facility] Blood (Mixed Venous) 08/01/2024 10:45 AM EST 08/01/2024 10:48 AM EST Krystal Parker MD POINT OF CARE TEST O RDERABLES [facility] [place] [address] * Potassium (08/01/2024 8:20 AM EST) Potassium 4.0 3.5 - 5.0 mMol/L 08/01/2024 10:17 AM EST [facility] Blood ARTERIAL BLOOD / Unknown Venipuncture / Unknown 08/01/2024 8:20 AM EST 08/01/2024 8:30 AM EST Aubree Silverio MD CHEMISTRY ORDERABL ES [facility] [place] [address] * POC, GLUCOSE (08/01/2024 7:44 AM EST) Pathologist [facility] Glucometer, POC 86 65 - 199 mg/dL 08/01/2024 7:44 AM EST [facility] Comment:Supplemental ranges: <140 mg/dL before meals <180 mg/dL all other times of the day. Blood CAPILLARY BLOOD / Unknown 08/01/2024 7:44 AM EST 08/01/2024 7:44 AM EST Krystal Parker MD POINT OF CARE TEST O RDERABLES [facility] [place] [address] * (ABNORMAL) CBC (with Diff) (08/01/2024 4:18 AM EST) [facility] White Blood Cell 8.51 4.00 - 9.50 x10(3)/mc L 08/01/2024 4:53 AM [facility] Red Blood Cell 4.12(L) 4.58 - 5.54 x10(6)/mc L 08/01/2024 4:53 AM [facility] Hemoglobin 11.2(L) 13.7 - 16.5 g/dL 08/01/2024 4:53 AM [facility] Hematocrit 33.8(L) 40.5 - 48.5 % 08/01/2024 4:53 AM [facility] Mean Cell Volume 82.0(L) 82.9 - 93.1 fL 08/01/2024 4:53 AM [facility] Mean Cell Hemoglobin 27.2(L) 27.5 - 32.1 pg 08/01/2024 4:53 AM [facility] Mean Cell Hemoglobin Concentration 33.1 32.0 - 35.7 g/dL 08/01/2024 4:53 AM [facility] Platelet 94(L) 145 - 357 x10(3)/mc L 08/01/2024 4:53 AM [facility] Mean Platelet Volume 10.9 7.6 - 12.9 fL 08/01/2024 4:53 AM [facility] RDW Standard Deviation 44.2 36.0 - 45.0 fL 08/01/2024 4:53 AM [facility] RDW coefficient of variation 14.7(H) 11.4 - 13.8 % 08/01/2024 4:53 AM [facility] NRBC% auto 0.0 % 08/01/2024 4:53 AM [facility] NRBC Absolute <0.01 <0.01 x10(3)/mc L 08/01/2024 4:53 AM [facility] Neutrophil % 82.7 % 08/01/2024 4:53 AM [facility] Neutrophil Absolute (ANC) - Automated 7.04(H) 1.70 - 6.10 x10(3)/mc L 08/01/2024 4:53 AM [facility] Lymph % 8.6 % 08/01/2024 4:53 AM [facility] Lymph Absolute 0.73(L) 0.90 - 3.20 x10(3)/mc L 08/01/2024 4:53 AM [facility] Monocyte % 7.6 % 08/01/2024 4:53 AM [facility] Monocyte Absolute 0.65 0.30 - 0.90 x10(3)/mc L 08/01/2024 4:53 AM [facility] Eos % 0.5 % 08/01/2024 4:53 AM [facility] Eos Absolute 0.04 0.00 - 0.40 x10(3)/mc L 08/01/2024 4:53 AM [facility] Basophil % 0.2 % 08/01/2024 4:53 AM [facility] Baso Absolute <0.04 0.00 - 0.10 x10(3)/mc L 08/01/2024 4:53 AM [facility] Immature Gran % 0.4 % 4:53 AM [facility] Immature Gran Absolute <0.04 0.00 - 0.04 x10(3)/mc L 08/01/2024 4:53 AM [facility] Blood VENOUS BLOOD SPECIMEN / Unknown Venipuncture / Unknown 08/01/2024 4:18 AM EST 08/01/2024 4:29 AM EST Bridgette Stauffer MD HEMATOLOGY ORDERABLE S Performing Organization Address [facility] Co de Phone Number [facility] [place] [address] * Magnesium (08/01/2024 4:18 AM EST) Pathologist [facility] Magnesium 0.74 0.69 - 1.07 mMol/L 08/01/2024 5:00 AM [facility] Blood VENOUS BLOOD SPECIMEN / Unknown Venipuncture / Unknown 08/01/2024 4:18 AM EST 08/01/2024 4:29 AM EST Bridgette Stauffer MD CHEMISTRY ORDERABLES Performing Organization Address [facility] Co de Phone Number [facility] [place] [address] * (ABNORMAL) Basic Metabolic Panel (08/01/2024 4:18 AM EST) Pathologist [facility] Glucose 107 65 - 199 mg/dL 08/01/2024 5:00 AM [facility] Comment:Glucose Concentratio n >=200 mg/dL plus symptoms is consistent with Diabetes Mellitus. Blood Urea Nitrogen 8(L) 10 - 20 mg/dL 08/01/2024 5:00 AM [facility] Creatinine 0.82 0.80 - 1.50 mg/dL 08/01/2024 5:00 AM [facility] Sodium 137 135 - 145 mMol/L 08/01/2024 5:00 AM [facility] Potassium 3.9 3.5 - 5.0 mMol/L 08/01/2024 5:00 AM [facility] Chloride 108(H) 98 - 107 mMol/L 08/01/2024 5:00 AM [facility] Carbon Dioxide 21(L) 22 - 31 mMol/L 08/01/2024 5:00 AM [facility] Anion Gap 8 5 - 15 mMol/L 08/01/2024 5:00 AM [facility] Calcium 7.7(L) 8.5 - 10.5 mg/dL 08/01/2024 5:00 AM [facility] Est Glomerular Filtration Rate - Male 93 mL/min/1. 73 m?? 08/01/2024 5:00 AM [facility] Comment: This patient's estimated GFR [...] AM EST Bridgette Stauffer MD CHEMISTRY ORDERABLES [facility] [place] [address] * POC, GLUCOSE (07/31/2024 8:41 PM EST) Glucometer, POC 73 65 - 199 mg/dL 07/31/2024 8:41 PM EST [facility] Comment:Supplemental ranges: <140 mg/dL before meals <180 mg/dL all other times of the day. Blood CAPILLARY BLOOD / Unknown 07/31/2024 8:41 PM EST 07/31/2024 8:41 PM EST Krystal Parker MD POINT OF CARE TEST O RDERABLES Performing Organization Address [facility]/State/ZIP Co de Phone Number [facility] [place] [address] * CARDIAC CATHETERIZATION (07/31/2024 5:53 PM EST) Anatomical Region Laterality Modality Other Narrative 08/01/2024 12:37 PM EST ?[facility] ? Cardiac Catheterization/Intervention Report ? Patient Name: Korey Montoya Kyrie. ? Procedure Date: 07/31/2024 ? A #: [id number] ? Primary Physician: Janelle, Maldonado T ? Case #: [id number] ? File Name: [id number] ? Catheterization Order Number: [id number] ? [facility] ? Final Report [place], [place] ? Patient Name: ? Korey Montoya ?ID#: ?[id number] ? : ?1950 ? Procedure Date: ? July 31, 2024 ?Case #: ? [id number] ? Room: ? 1 ? Case Physician: ? Maldonado Luis, M.D. ?Start: ?17:10 ? Admission: ??07/29/2024 ? [...] ? Comments: ?Impella removed from the right ICING MIXER with deployment of Perclose and ?Angioseal. ??Good [...] Finalized: 08/01/2024 ??12:31 ? Procedure Note Maldonado Lusi MD - 08/01/2024 [facility] Cardiac Catheterization/Intervention Report Patient Name: Korey Montoya Procedure Date: 07/31/2024 A #: [id number] Primary Physician: Maldonado Luis Case #: [id number] File Name: [id number] Catheterization Order Number: [id number] [facility] FinalReport [place], [place] Patient Name: Korey Montoya ID#:[id number] :1950 Procedure Date: July 31, 2024 Case [...] was designated as ASA Class IV. The [facility] clinical frailtyscale is 4: Vulnerable. Diagnostic [...] procedures. Comments: Impella removed from the right ICING MIXER with deployment of Perclose and Angioseal. Good [...] * POC, GLUCOSE (07/31/2024 11:04 AM EST) [facility] Glucometer, POC 82 65 - 199 mg/dL 07/31/2024 11:04 AM EST [facility] Comment:Supplemental ranges: <140 mg/dL before meals <180 mg/dL all other times of the day. Blood CAPILLARY BLOOD / Unknown 07/31/2024 11:04 AM EST 07/31/2024 11:04 AM EST Krystal Parker MD POINT OF CARE TEST O RDERABLES [facility] [place] [address] * (ABNORMAL) Blood Gas, Arterial POC (07/31/2024 8:29 AM EST) pH, Arterial 7.48(H) 7.35 - 7.45 07/31/2024 8:30 AM [facility] PCO2, Arterial 29(L) 35 - 45 mmHg 07/31/2024 8:30 AM [facility] PO2, Arterial 71(L) 85 - 104 mmHg 07/31/2024 8:30 AM [facility] Bicarbonate, Arterial 20.6 20.0 - 26.0 mmol/L 07/31/2024 8:30 AM [facility] Base Excess, Arterial -3.0 -3.0 - 3.0 mmol/L 07/31/2024 8:30 AM [facility] Hemoglobin, Arterial 12.3(L) 13.7 - 16.5 g/dL 07/31/2024 8:30 AM [facility] Oxyhemoglobin, Arterial 94.4 94.0 - 97.0 % 07/31/2024 8:30 AM [facility] Carboxyhemoglobin , Arterial 0.7 % 07/31/2024 8:30 AM [facility] Comment: Nonsmokers: 0.5-1.5% COHB ?? Smokers: Variable ??but usually less than 10% ?? Toxic: 20-30% COHB ?? Lethal: Greater than 60% COHB Methemoglobin, Arterial 0.3 <=1.5 % 07/31/2024 8:30 AM [facility] Sodium, Arterial 138 135 - 145 mmol/L 07/31/2024 8:30 AM [facility] Potassium, Arterial 3.5 3.5 - 5.0 mmol/L 07/31/2024 8:30 AM [facility] Chloride, Arterial 109(H) 98 - 107 mmol/L 07/31/2024 8:30 AM [facility] Lactate, Arterial 0.8 0.5 - 2.2 mmol/L 07/31/2024 8:30 AM [facility] Fraction of Inspired Oxygen 21 % 07/31/2024 8:30 AM [facility] PF Ratio 338 Ratio 07/31/2024 8:30 AM [facility] Comment:PF ratio calculated using the non-temperature corrected pO2 result. IONIZED CALCIUM, ARTERIAL 1.08(L) 1.15 - 1.33 mmol/L 07/31/2024 8:30 AM [facility] Glucose, Arterial 86 65 - 199 mg/dL 07/31/2024 8:30 AM [facility] Comment:Glucose Concentratio n >=200 mg/dL plus symptoms is consistent with Diabetes Mellitus. Blood ARTERIAL BLOOD / Unknown 07/31/2024 8:29 AM EST 07/31/2024 8:30 AM EST Krystal Parker MD POINT OF CARE TEST O JOSH [facility] [place] [address] * POC, GLUCOSE (07/31/2024 7:47 AM EST) Glucometer, POC 82 65 - 199 mg/dL 07/31/2024 7:53 AM [facility] Comment:Supplemental ranges: <140 mg/dL before meals <180 mg/dL all other times of the day. Blood CAPILLARY BLOOD / Unknown 07/31/2024 7:47 AM EST 07/31/2024 7:53 AM EST Krystal Parker MD POINT OF CARE TEST O RDERASHAY [facility] [place] [address] * (ABNORMAL) CBC (with Diff) (07/31/2024 1:08 AM EST) White Blood Cell 10.25(H) 4.00 - 9.50 x10(3)/mc L 07/31/2024 1:28 AM [facility] Red Blood Cell 4.13(L) 4.58 - 5.54 x10(6)/mc L 07/31/2024 1:28 AM [facility] Hemoglobin 11.2(L) 13.7 - 16.5 g/dL 07/31/2024 1:28 AM [facility] Hematocrit 33.9(L) 40.5 - 48.5 % 07/31/2024 1:28 AM [facility] Mean Cell Volume 82.1(L) 82.9 - 93.1 fL 07/31/2024 1:28 AM [facility] Mean Cell Hemoglobin 27.1(L) 27.5 - 32.1 pg 07/31/2024 1:28 AM [facility] Mean Cell Hemoglobin Concentration 33.0 32.0 - 35.7 g/dL 07/31/2024 1:28 AM [facility] Platelet 109(L) 145 - 357 x10(3)/mc L 07/31/2024 1:28 AM [facility] Mean Platelet Volume 10.4 7.6 - 12.9 fL 07/31/2024 1:28 AM [facility] RDW Standard Deviation 45.1(H) 36.0 - 45.0 fL 07/31/2024 1:28 AM [facility] RDW coefficient of variation 15.1(H) 11.4 - 13.8 % 07/31/2024 1:28 AM [facility] NRBC% auto 0.0 % 07/31/2024 1:28 AM [facility] NRBC Absolute <0.01 <0.01 x10(3)/mc L 07/31/2024 1:28 AM [facility] Neutrophil % 79.7 % 07/31/2024 1:28 AM [facility] Neutrophil Absolute (ANC) - Automated 8.17(H) 1.70 - 6.10 x10(3)/mc L 07/31/2024 1:28 AM [facility] Lymph % 12.8 % 07/31/2024 1:28 AM [facility] Lymph Absolute 1.31 0.90 - 3.20 x10(3)/mc L 07/31/2024 1:28 AM [facility] Monocyte % 6.9 % 07/31/2024 1:28 AM [facility] Monocyte Absolute 0.71 0.30 - 0.90 x10(3)/mc L 07/31/2024 1:28 AM [facility] Eos % 0.1 % 07/31/2024 1:28 AM [facility] Eos Absolute <0.04 0.00 - 0.40 x10(3)/mc L 07/31/2024 1:28 AM [facility] Basophil % 0.3 % 07/31/2024 1:28 AM [facility] Baso Absolute <0.04 0.00 - 0.10 x10(3)/mc L 07/31/2024 1:28 AM [facility] Immature Gran % 0.2 % 1:28 AM [facility] Immature Gran Absolute <0.04 0.00 - 0.04 x10(3)/mc L 07/31/2024 1:28 AM [facility] Blood VENOUS BLOOD SPECIMEN / Unknown Venipuncture / Unknown 07/31/2024 1:08 AM EST 07/31/2024 1:18 AM EST Bridgette Stauffer MD HEMATOLOGY ORDERABLE S [facility] [place] [address] * Magnesium (07/31/2024 1:08 AM EST) Pathologist [facility] Magnesium 0.89 0.69 - 1.07 mMol/L 07/31/2024 1:46 AM [facility] Blood VENOUS BLOOD SPECIMEN / Unknown Venipuncture / Unknown 07/31/2024 1:08 AM EST 07/31/2024 1:18 AM EST Bridgette Stauffer MD CHEMISTRY ORDERABLES [facility] [address] [place] [address] * (ABNORMAL) Basic Metabolic Panel (07/31/2024 1:08 AM EST) Pathologist [facility] Glucose 97 65 - 199 mg/dL 07/31/2024 1:46 AM [facility] Comment:Glucose Concentratio n >=200 mg/dL plus symptoms is consistent with Diabetes Mellitus. Blood Urea Nitrogen 11 10 - 20 mg/dL 07/31/2024 1:46 AM [facility] Creatinine 0.96 0.80 - 1.50 mg/dL 07/31/2024 1:46 AM EST [facility] Sodium 140 135 - 145 mMol/L 07/31/2024 1:46 AM EST [facility] Potassium 4.1 3.5 - 5.0 mMol/L 07/31/2024 1:46 AM [facility] Chloride 110(H) 98 - 107 mMol/L 07/31/2024 1:46 AM [facility] Carbon Dioxide 24 22 - 31 mMol/L 07/31/2024 1:46 AM [facility] Anion Gap 6 5 - 15 mMol/L 07/31/2024 1:46 AM EST [facility] Calcium 7.7(L) 8.5 - 10.5 mg/dL 07/31/2024 1:46 AM [facility] Est Glomerular Filtration Rate - Male 84 mL/min/1. 73 m?? 07/31/2024 1:46 AM [facility] Comment: This patient's estimated GFR [...] AM EST Bridgette Stauffer MD CHEMISTRY ORDERABLES [facility] [place] [address] * (ABNORMAL) Hepatic Function Panel (07/31/2024 1:08 AM EST) Albumin 3.1(L) 3.2 - 5.2 g/dL 07/31/2024 1:46 AM EST [facility] Aspartate Aminotransferase 192(H) <=39 unit/L 07/31/2024 1:46 AM [facility] Alanine Aminotransferase 59(H) 0 - 55 unit/L 07/31/2024 1:46 AM [facility] Alkaline Phosphatase 46 40 - 130 unit/L 07/31/2024 1:46 AM [facility] Bilirubin, Total 0.4 <=1.3 mg/dL 07/31/2024 1:46 AM [facility] Bilirubin, Direct <0.2 0.0 - 0.3 mg/dL 07/31/2024 1:46 AM [facility] Protein, Total 5.0(L) 6.1 - 8.0 g/dL 07/31/2024 1:46 AM [facility] Blood VENOUS BLOOD SPECIMEN / Unknown Venipuncture / Unknown 07/31/2024 1:08 AM EST 07/31/2024 1:18 AM EST Krystal Parker MD CHEMISTRY ORDERABLES Performing Organization Address [facility]/ZIP Co de Phone Number [facility] [place] [address] * POC, GLUCOSE (07/30/2024 8:03 PM EST) Glucometer, POC 86 65 - 199 mg/dL 07/30/2024 8:03 PM EST [facility] Comment:Supplemental ranges: <140 mg/dL before meals <180 mg/dL all other times of the day. Blood CAPILLARY BLOOD / Unknown 07/30/2024 8:03 PM EST 07/30/2024 8:03 PM EST Krystal Parker MD POINT OF CARE TEST O RDERABLES Performing Organization Address City/[facility]/ZIP Co de Phone Number [facility] [place] [address] * Potassium (07/30/2024 8:03 PM EST) [facility] Potassium 3.8 3.5 - 5.0 mMol/L 07/30/2024 9:13 PM EST [facility] Blood VENOUS BLOOD SPECIMEN / Unknown Venipuncture / Unknown 07/30/2024 8:03 PM EST 07/30/2024 8:22 PM EST Aubree Silverio MD CHEMISTRY ORDERABL ES Performing Organization Address City/[facility]/ZIP Co de Phone Number [facility] [place] [address] * POC, GLUCOSE (07/30/2024 6:23 PM EST) Glucometer, POC 93 65 - 199 mg/dL 07/30/2024 6:24 PM EST [facility] Comment:Supplemental ranges: <140 mg/dL before meals <180 mg/dL all other times of the day. Blood CAPILLARY BLOOD / Unknown 07/30/2024 6:23 PM EST 07/30/2024 6:24 PM EST Krystal Parker MD POINT OF CARE TEST O RDKAY Performing Organization Address [facility] Co de Phone Number [facility] [place] [address] * POC, GLUCOSE (07/30/2024 5:08 PM EST) Glucometer, POC 78 65 - 199 mg/dL 07/30/2024 5:08 PM EST [facility] Comment:Supplemental ranges: <140 mg/dL before meals <180 mg/dL all other times of the day. Blood CAPILLARY BLOOD / Unknown 07/30/2024 5:08 PM EST 07/30/2024 5:08 PM EST Krystal Parker MD POINT OF CARE TEST O JOSH Performing Organization Address [facility] Co de Phone Number [facility] [place] [address] * (ABNORMAL) Phosphorus (07/30/2024 3:08 PM EST) Phosphorus 2.1(L) 2.5 - 4.5 mg/dL 07/30/2024 3:58 PM EST [facility] Blood VENOUS BLOOD SPECIMEN / Unknown Venipuncture / Unknown 07/30/2024 3:08 PM EST 07/30/2024 3:12 PM EST Aubree Silverio MD CHEMISTRY ORDERABL ES Performing Organization Address [facility] Co de Phone Number [facility] [place] [address] * Magnesium (07/30/2024 3:08 PM EST) Magnesium 0.90 0.69 - 1.07 mMol/L 07/30/2024 3:58 PM EST [facility] Blood VENOUS BLOOD SPECIMEN / Unknown Venipuncture / Unknown 07/30/2024 3:08 PM EST 07/30/2024 3:12 PM EST Aubree Silverio MD CHEMISTRY ORDERABL ES [facility] [place] [address] * (ABNORMAL) Basic Metabolic Panel (07/30/2024 3:08 PM EST) Glucose 105 65 - 199 mg/dL 07/30/2024 4:17 PM [facility] Comment:Glucose Concentratio n >=200 mg/dL plus symptoms is consistent with Diabetes Mellitus. Blood Urea Nitrogen 13 10 - 20 mg/dL 07/30/2024 4:17 PM [facility] Creatinine 1.01 0.80 - 1.50 mg/dL 07/30/2024 4:17 PM [facility] Sodium 141 135 - 145 mMol/L 07/30/2024 4:17 PM [facility] Potassium 3.4(L) 3.5 - 5.0 mMol/L 07/30/2024 4:17 PM [facility] Chloride 109(H) 98 - 107 mMol/L 07/30/2024 4:17 PM [facility] Carbon Dioxide 21(L) 22 - 31 mMol/L 07/30/2024 4:17 PM [facility] Anion Gap 11 5 - 15 mMol/L 07/30/2024 4:17 PM [facility] Calcium 7.9(L) 8.5 - 10.5 mg/dL 07/30/2024 4:17 PM [facility] Est Glomerular Filtration Rate - Male 79 mL/min/1. 73 m?? 07/30/2024 4:17 PM [facility] Comment: This patient's estimated GFR [...] EST Aubree Silverio MD CHEMISTRY ORDERABL ES [facility] [place] [place] [address] * ECHO LMTD W CONTRAST W LMTD SPEC DOPP COLOR DOPP (07/30/2024 11:42 AM EST) Anatomical Region Laterality Modality Cardiac Other 07/30/2024 10:2 2 AM EST Narrative 07/30/2024 12:34 PM EST [address] [place] [address] ? Echocardiogram Report Name: MONTOYA KOREY Kyrie ? Study Date: 07/30/2024 10:22 AMBP: 124/66 mmHg : 1950 ? Height: 168 cm ? Account: [id number] Age: 74 yrs ? Weight: 65 kg Gender: Male ?BSA: 1.7 m2 Ordering Physician: Aubree Silverio MD Referring Physician: CHAPARRO FERRERA Performed By: OMERO Millan Reason For Study: ST elevation myocardial infarction involving left anterior descending (LAD) coronary artery Interpreting Fellow: Ivan Hernandez. Exam Location: [facility]. Interpretation Summary Left ventricle is severely [...] Compared to the overnight study by the distribution dispatcher fellow the impella position is stable. 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 Procedure Limited - 33661. Image enhancement Definity was used for both [...] Note Kathleen Banda MD - 07/30/2024 [address] [place] [address] Echocardiogram Report Name: KOREY MONTOYA Study Date: 0:22 AMBP: 124/66 mmHg : 1950 Height: 168 cm Account: [id number] Age: 74 yrs Weight: 65 kg Gender: Male BSA: 1.7 m2 Ordering Physician: Aubree Silverio MD Referring Physician: CHAPARRO FERRERA Performed By: OMERO Millan Reason For Study: ST elevation myocardial infarction involving leftanterior descending (LAD) coronary artery Interpreting Fellow: Ivan Hernandez. Exam Location: [facility]. Interpretation Summary Left ventricle is severely [...] Compared to the overnight study by the distribution dispatcher fellow the impella positionis stable. The global left ventricular systolic function has improvedpredominantly via recruitment outside the LAD territory which remains akinetic. Procedure Limited - 79966. Image enhancement Definity was used for both [...] - 199 mg/dL 07/30/2024 11:17 AM EST [facility] Comment:Supplemental ranges: <140 mg/dL before meals <180 mg/dL all other times of the day. Blood CAPILLARY BLOOD / Unknown 07/30/2024 11:17 AM EST 07/30/2024 11:17 AM EST Aubree Silverio MD POINT OF CARE TEST ORDERABLES [facility] [place] [address] * (ABNORMAL) Blood Gas, Arterial POC (07/30/2024 8:16 AM EST) pH, Arterial 7.44 7.35 - 7.45 07/30/2024 8:17 AM [facility] PCO2, Arterial 29(L) 35 - 45 mmHg 07/30/2024 8:17 AM [facility] PO2, Arterial 109(H) 85 - 104 mmHg 07/30/2024 8:17 AM [facility] Bicarbonate, Arterial 19.4(L) 20.0 - 26.0 mmol/L 07/30/2024 8:17 AM [facility] Base Excess, Arterial -4.7(L) -3.0 - 3.0 mmol/L 07/30/2024 8:17 AM [facility] Hemoglobin, Arterial 12.2(L) 13.7 - 16.5 g/dL 07/30/2024 8:17 AM [facility] Oxyhemoglobin, Arterial 97.1(H) 94.0 - 97.0 % 07/30/2024 8:17 AM [facility] Carboxyhemoglob in, Arterial 1.0 % 07/30/2024 8:17 AM [facility] Comment: Nonsmokers: 0.5-1.5% COHB ?? Smokers: Variable ??but usually less than 10% ?? Toxic: 20-30% COHB ?? Lethal: Greater than 60% COHB Methemoglobin, Arterial 0.1 <=1.5 % 07/30/2024 8:17 AM [facility] Sodium, Arterial 132(L) 135 - 145 mmol/L 07/30/2024 8:17 AM EST [facility] Potassium, Arterial 3.9 3.5 - 5.0 mmol/L 07/30/2024 8:17 AM [facility] Chloride, Arterial 105 98 - 107 mmol/L 07/30/2024 8:17 AM [facility] Lactate, Arterial 1.2 0.5 - 2.2 mmol/L 07/30/2024 8:17 AM [facility] Fraction of Inspired Oxygen 21 % 07/30/2024 8:17 AM [facility] PF Ratio 519 Ratio 07/30/2024 8:17 AM [facility] Comment:PF ratio calculated using the non-temperature corrected pO2 result. IONIZED CALCIUM, ARTERIAL 1.15 1.15 - 1.33 mmol/L 07/30/2024 8:17 AM [facility] Blood ARTERIAL BLOOD / Unknown 07/30/2024 8:16 AM EST 07/30/2024 8:17 AM EST Aubree Silverio MD POINT OF CARE TEST ORDERABLES [facility] [place] [address] * (ABNORMAL) Troponin - Single (07/30/2024 8:09 AM EST) Troponin-T, High Sensitivity 8,651(H) <=22 ng/L 07/30/2024 9:06 AM EST [facility] Comment: This patient's troponin T [...] troponin value can be found in the [facility] Test Catalog Troponin - https://one-.testcatalog.org/catalogs/565/files/18618 Reference: Fourth [place] Definition of Myocardial Infarction. Journal of the [place] [employer] 2018;72:6875-9295 Blood VENOUS BLOOD SPECIMEN / Unknown Venipuncture / Unknown 07/30/2024 8:09 AM EST 07/30/2024 8:26 AM EST Aubree Silverio MD CHEMISTRY ORDERABL ES Performing Organization Address [facility] Co de Phone Number [facility] [place] [address] * POC, GLUCOSE (07/30/2024 7:40 AM EST) Glucometer, POC 111 65 - 199 mg/dL 07/30/2024 7:40 AM EST [facility] Comment:Supplemental ranges: <140 mg/dL before meals <180 mg/dL all other times of the day. Blood CAPILLARY BLOOD / Unknown 07/30/2024 7:40 AM EST 07/30/2024 7:40 AM EST Aubree Silverio MD POINT OF CARE TEST ORDERABLES Performing Organization Address [facility] Co de Phone Number [facility] [place] [address] * (ABNORMAL) CBC (with Diff) (07/30/2024 2:11 AM EST) White Blood Cell 11.25(H) 4.00 - 9.50 x10(3)/mc L 07/30/2024 2:33 AM EST [facility] Red Blood Cell 4.50(L) 4.58 - 5.54 x10(6)/mc L 07/30/2024 2:33 AM [facility] Hemoglobin 12.2(L) 13.7 - 16.5 g/dL 07/30/2024 2:33 AM [facility] Hematocrit 37.1(L) 40.5 - 48.5 % 07/30/2024 2:33 AM [facility] Mean Cell Volume 82.4(L) 82.9 - 93.1 fL 07/30/2024 2:33 AM [facility] Mean Cell Hemoglobin 27.1(L) 27.5 - 32.1 pg 07/30/2024 2:33 AM [facility] Mean Cell Hemoglobin Concentration 32.9 32.0 - 35.7 g/dL 07/30/2024 2:33 AM [facility] Platelet 166 145 - 357 x10(3)/mc L 07/30/2024 2:33 AM [facility] Mean Platelet Volume 10.6 7.6 - 12.9 fL 07/30/2024 2:33 AM [facility] RDW Standard Deviation 44.6 36.0 - 45.0 fL 07/30/2024 2:33 AM [facility] RDW coefficient of variation 14.6(H) 11.4 - 13.8 % 07/30/2024 2:33 AM [facility] NRBC% auto 0.0 % 07/30/2024 2:33 AM [facility] NRBC Absolute <0.01 <0.01 x10(3)/mc L 07/30/2024 2:33 AM [facility] Neutrophil % 88.9 % 07/30/2024 2:33 AM [facility] Neutrophil Absolute (ANC) - Automated 10.00(H) 1.70 - 6.10 x10(3)/mc L 07/30/2024 2:33 AM [facility] Lymph % 5.1 % 07/30/2024 2:33 AM [facility] Lymph Absolute 0.57(L) 0.90 - 3.20 x10(3)/mc L 07/30/2024 2:33 AM EST [facility] Monocyte % 5.4 % 07/30/2024 2:33 AM [facility] Monocyte Absolute 0.61 0.30 - 0.90 x10(3)/mc L 07/30/2024 2:33 AM [facility] Eos % 0.0 % 07/30/2024 2:33 AM [facility] Eos Absolute <0.04 0.00 - 0.40 x10(3)/mc L 07/30/2024 2:33 AM [facility] Basophil % 0.2 % 07/30/2024 2:33 AM [facility] Baso Absolute <0.04 0.00 - 0.10 x10(3)/mc L 07/30/2024 2:33 AM [facility] Immature Gran % 0.4 % 2:33 AM [facility] Immature Gran Absolute 0.05(H) 0.00 - 0.04 x10(3)/mc L 07/30/2024 2:33 AM [facility] Blood VENOUS BLOOD SPECIMEN / Unknown Venipuncture / Unknown 07/30/2024 2:11 AM EST 07/30/2024 2:22 AM EST Bridgette Stauffer MD HEMATOLOGY ORDERABLE S [facility] [place] [address] * Magnesium (07/30/2024 2:11 AM EST) Magnesium 1.01 0.69 - 1.07 mMol/L 07/30/2024 2:51 AM [facility] Blood VENOUS BLOOD SPECIMEN / Unknown Venipuncture / Unknown 07/30/2024 2:11 AM EST 07/30/2024 2:22 AM EST Bridgette Stauffer MD CHEMISTRY ORDERABLES [facility] [place] [address] * (ABNORMAL) Basic Metabolic Panel (07/30/2024 2:11 AM EST) Glucose 190 65 - 199 mg/dL 07/30/2024 2:51 AM [facility] Comment:Glucose Concentratio n >=200 mg/dL plus symptoms is consistent with Diabetes Mellitus. Blood Urea Nitrogen 15 10 - 20 mg/dL 07/30/2024 2:51 AM [facility] Creatinine 0.88 0.80 - 1.50 mg/dL 07/30/2024 2:51 AM [facility] Sodium 135 135 - 145 mMol/L 07/30/2024 2:51 AM [facility] Potassium 4.9 3.5 - 5.0 mMol/L 07/30/2024 2:51 AM [facility] Chloride 105 98 - 107 mMol/L 07/30/2024 2:51 AM [facility] Carbon Dioxide 19(L) 22 - 31 mMol/L 07/30/2024 2:51 AM [facility] Anion Gap 11 5 - 15 mMol/L 07/30/2024 2:51 AM [facility] Calcium 7.7(L) 8.5 - 10.5 mg/dL 07/30/2024 2:51 AM [facility] Est Glomerular Filtration Rate - Male 91 mL/min/1. 73 m?? 07/30/2024 2:51 AM [facility] Comment: This patient's estimated GFR [...] Stauffer MD CHEMISTRY ORDERABLES Performing Organization Address City/[facility]/ZIP Co de Phone Number [facility] [place] [address] * (ABNORMAL) Cooximetry, POC (07/30/2024 1:00 AM EST) pO2, Coox 28 mmHg 07/30/2024 1:03 AM [facility] Hemoglobin, Coox 12.7(L) 13.7 - 16.5 g/dL 07/30/2024 1:03 AM EST [facility] Oxyhemoglobin, Coox 54.9 % 07/30/2024 1:03 AM [facility] Carboxyhemoglo bin, Coox 1.0 % 07/30/2024 1:03 AM EST [facility] Comment: Nonsmokers: 0.5-1.5% COHB ?? Smokers: Variable ??but usually less than 10% ?? Toxic: 20-30% COHB ?? Lethal: Greater than 60% COHB Methemoglobin, Coox 0.0 <=1.5 % 07/30/2024 1:03 AM EST [facility] Blood (Mixed Venous) 07/30/2024 1:00 AM EST 07/30/2024 1:03 AM EST Aubree Silverio MD POINT OF CARE TEST ORDERABLES Performing Organization Address [facility] Co de Phone Number [facility] [place] [address] * (ABNORMAL) Blood Gas, Arterial POC (07/30/2024 12:57 AM EST) pH, Arterial 7.38 7.35 - 7.45 07/30/2024 12:58 AM [facility] PCO2, Arterial 34(L) 35 - 45 mmHg 07/30/2024 12:58 AM [facility] PO2, Arterial 141(H) 85 - 104 mmHg 07/30/2024 12:58 AM [facility] Bicarbonate, Arterial 19.5(L) 20.0 - 26.0 mmol/L 07/30/2024 12:58 AM [facility] Base Excess, Arterial -5.6(L) -3.0 - 3.0 mmol/L 07/30/2024 12:58 AM [facility] Hemoglobin, Arterial 13.0(L) 13.7 - 16.5 g/dL 07/30/2024 12:58 AM [facility] Oxyhemoglobin, Arterial 98.4(H) 94.0 - 97.0 % 07/30/2024 12:58 AM [facility] Carboxyhemoglobin , Arterial 0.4 % 07/30/2024 12:58 AM [facility] Comment: Nonsmokers: 0.5-1.5% COHB ?? Smokers: Variable ??but usually less than 10% ?? Toxic: 20-30% COHB ?? Lethal: Greater than 60% COHB Methemoglobin, Arterial 0.1 <=1.5 % 07/30/2024 12:58 AM [facility] Sodium, Arterial 130(L) 135 - 145 mmol/L 07/30/2024 12:58 AM [facility] Potassium, Arterial 4.5 3.5 - 5.0 mmol/L 07/30/2024 12:58 AM [facility] Chloride, Arterial 104 98 - 107 mmol/L 07/30/2024 12:58 AM [facility] Lactate, Arterial 1.3 0.5 - 2.2 mmol/L 07/30/2024 12:58 AM [facility] Flow Rate 2.0 L/min 07/30/2024 12:58 AM EST [facility] IONIZED CALCIUM, ARTERIAL 1.12(L) 1.15 - 1.33 mmol/L 07/30/2024 12:58 AM EST [facility] Glucose, Arterial 184 65 - 199 mg/dL 07/30/2024 12:58 AM EST [facility] Comment:Glucose Concentratio n >=200 mg/dL plus symptoms is consistent with Diabetes Mellitus. Blood ARTERIAL BLOOD / Unknown 07/30/2024 12:57 AM EST 07/30/2024 12:58 AM EST Aubree Silverio MD POINT OF CARE TEST ORDERABLES [facility] [place] [address] * (ABNORMAL) Troponin - Single (07/29/2024 10:31 PM EST) Troponin-T, High Sensitivity >10,000(H ) <=22 ng/L 07/29/2024 11:03 PM EST [facility] Comment: This patient's troponin T [...] troponin value can be found in the [facility] Test Catalog Troponin - https://one-.testcatalog.org/catalogs/565/files/23154 Reference: Fourth [place] Definition of Myocardial Infarction. Journal of the [place] [employer] 2018;72:8485-5691 Blood VENOUS BLOOD SPECIMEN / Unknown Venipuncture / Unknown 07/29/2024 10:31 PM EST 07/29/2024 10:36 PM EST Yrn Velazquez MD CHEMISTRY ORDERABL ES Performing Organization Address City/[facility]/ZIP Co de Phone Number [facility] [place] [address] * Potassium (07/29/2024 8:11 PM EST) Potassium 4.1 3.5 - 5.0 mMol/L 07/29/2024 8:52 PM EST [facility] Blood VENOUS BLOOD SPECIMEN / Unknown Venipuncture / Unknown 07/29/2024 8:11 PM EST 07/29/2024 8:16 PM EST Aubree Silverio MD CHEMISTRY ORDERABL ES Performing Organization Address [facility]/ZIP Co de Phone Number [facility] [place] [address] * (ABNORMAL) Troponin - Single (07/29/2024 8:11 PM EST) Troponin-T, High Sensitivity >10,000(H ) <=22 ng/L 07/29/2024 8:52 PM EST [facility] Comment: This patient's troponin T concentration was determined using the [employer] 5th Generation troponin T assay. According to [...] troponin value can be found in the [facility] Test Catalog Troponin - https://one-.testcatalog.org/catalogs/565/files/92828 Reference: Fourth [place] Definition of Myocardial Infarction. Journal of the [place] [employer] 2018;72:3252-6740 Blood VENOUS BLOOD SPECIMEN / Unknown Venipuncture / Unknown 07/29/2024 8:11 PM EST 07/29/2024 8:16 PM EST Aubree Silverio MD CHEMISTRY ORDERABL ES [facility] [place] [address] * (ABNORMAL) Phosphorus (07/29/2024 8:11 PM EST) Phosphorus 2.1(L) 2.5 - 4.5 mg/dL 07/29/2024 8:52 PM EST [facility] Blood VENOUS BLOOD SPECIMEN / Unknown Venipuncture / Unknown 07/29/2024 8:11 PM EST 07/29/2024 8:16 PM EST Aubree Silverio MD CHEMISTRY ORDERABL ES [facility] [place] [address] * POC, GLUCOSE (07/29/2024 8:09 PM EST) Glucometer, POC 142 65 - 199 mg/dL 07/29/2024 8:09 PM EST [facility] Comment:Supplemental ranges: <140 mg/dL before meals <180 mg/dL all other times of the day. Blood CAPILLARY BLOOD / Unknown 07/29/2024 8:09 PM EST 07/29/2024 8:09 PM EST Aubree Silverio MD POINT OF CARE TEST ORDERABLES Performing Organization Address City/[facility]/ZIP Co de Phone Number [facility] [place] [address] * ABORH RECHECK (07/29/2024 6:43 PM EST) Pathologist [facility] ABORH Recheck AB POSITIVE 07/29/2024 10:[address] [facility] Blood VENOUS BLOOD SPECIMEN / Unknown Venipuncture / Unknown 07/29/2024 6:43 PM EST 07/29/2024 7:15 PM EST Aubree Silverio MD BLOOD BANK LAB ORD ERABLES Performing Organization Address City/[facility]/ZIP Co de Phone Number [facility] [place] [place] [address] * POC, GLUCOSE (07/29/2024 5:57 PM EST) [facility] Glucometer, POC 166 65 - 199 mg/dL 07/29/2024 5:57 PM EST [facility] Comment:Supplemental ranges: <140 mg/dL before meals <180 mg/dL all other times of the day. Blood CAPILLARY BLOOD / Unknown 07/29/2024 5:57 PM EST 07/29/2024 5:57 PM EST Aubree Silverio MD POINT OF CARE TEST ORDERABLES Performing Organization Address City/[facility]/ZIP Co de Phone Number [facility] [place] [address] * Type and screen ([facility]/CGP/MAGALIE) (07/29/2024 5:56 PM EST) Pathologist [facility] ABORH Type AB POSITIVE 07/29/2024 9:[address] [facility] PATIENT HISTORY Not Found 07/29/2024 9:[address] [facility] Expires at [id number] on: 08/01/2024 07/29/2024 9:[address] [facility] ANTIBODY SCREEN AUTOMATED Negative 07/29/2024 9:[address] [facility] T&S only valid at [facility] 07/29/2024 9:[address] [facility] Blood VENOUS BLOOD SPECIMEN / Unknown Venipuncture / Unknown 07/29/2024 5:56 PM EST 07/29/2024 6:[address] [facility] - 07/29/2024 9:44 PM EST This Type and Screen result is only valid at the [facility] Aubree Silverio MD BLOOD BANK LAB ORD ERABLES [facility] [place] [place] [address] * (ABNORMAL) Troponin - Single (07/29/2024 4:52 PM EST) [facility] Troponin-T, High Sensitivity >10,000(H ) <=22 ng/L 07/29/2024 5:25 PM EST [facility] Comment: This patient's troponin T [...] troponin value can be found in the [facility] Laboratory Test Catalog Troponin - [email or web address].org/[email or web address]/files/[email or web address] Reference: Fourth [place] Definition of Myocardial Infarction. Journal of the [place] [employer] 2018;72:4464-6775 Blood VENOUS BLOOD SPECIMEN / Unknown Venipuncture / Unknown 07/29/2024 4:52 PM EST 07/29/2024 4:57 PM EST Aubree Silverio MD CHEMISTRY ORDERABL ES Performing Organization Address City/[facility]/ZIP Co de Phone Number [facility] [place] [address] * EKG 12 Lead (07/29/2024 4:21 PM EST) Ventricular rate 72 BPM MUSE SYSTEM Atrial Rate 72 BPM MUSE SYSTEM P-R Interval 168 ms MUSE SYSTEM QRS Duration 82 ms MUSE SYSTEM Q-T Interval 392 ms MUSE SYSTEM QTC Calculated (Bezet) 429 ms MUSE SYSTEM Calculated P Roberts 71 degrees MUSE SYSTEM Calculated R Roberts 77 degrees MUSE SYSTEM Calculated T Roberts 28 degrees MUSE SYSTEM INTERPRETATION Sinus rhythm with Premature supraventricular complexes and Occasional Premature ventricular complexes Low voltage QRS 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) Lateral injury pattern ACUTE PR / STEMI Abnormal ECG When compared with ECG of 29-JUL-2024 13:43, (unconfirmed) Serial changes of evolving Anteroseptal infarct Present Confirmed by MD Marcus, Roverto (1961) on 07/31/2024 5:30:06 AM MUSE SYSTEM 07/29/2024 4:21 PM EST 07/31/2024 5:30 AM EST Aubree Silverio MD ECG ORDERABLES Performing Organization Address [facility]/ZIP Co de Phone Number MUSE SYSTEM * (ABNORMAL) Blood Gas, Arterial POC (07/29/2024 4:21 PM EST) pH, Arterial 7.37 7.35 - 7.45 07/29/2024 4:22 PM EST [facility] PCO2, Arterial 36 35 - 45 mmHg 07/29/2024 4:22 PM EST [facility] PO2, Arterial 71(L) 85 - 104 mmHg 07/29/2024 4:22 PM EST [facility] Bicarbonate, Arterial 20.4 20.0 - 26.0 mmol/L 07/29/2024 4:22 PM EST [facility] Base Excess, Arterial -4.8(L) -3.0 - 3.0 mmol/L 07/29/2024 4:22 PM [facility] Hemoglobin, Arterial 12.2(L) 13.7 - 16.5 g/dL 07/29/2024 4:22 PM [facility] Oxyhemoglobin, Arterial 93.8(L) 94.0 - 97.0 % 07/29/2024 4:22 PM [facility] Carboxyhemoglobin , Arterial 0.5 % 07/29/2024 4:22 PM [facility] Comment: Nonsmokers: 0.5-1.5% COHB ?? Smokers: Variable ??but usually less than 10% ?? Toxic: 20-30% COHB ?? Lethal: Greater than 60% COHB Methemoglobin, Arterial 0.3 <=1.5 % 07/29/2024 4:22 PM [facility] Sodium, Arterial 134(L) 135 - 145 mmol/L 07/29/2024 4:22 PM [facility] Potassium, Arterial 4.2 3.5 - 5.0 mmol/L 07/29/2024 4:22 PM [facility] Chloride, Arterial 107 98 - 107 mmol/L 07/29/2024 4:22 PM [facility] Lactate, Arterial 1.5 0.5 - 2.2 mmol/L 07/29/2024 4:22 PM [facility] Fraction of Inspired Oxygen 21 % 07/29/2024 4:22 PM [facility] PF Ratio 338 Ratio 07/29/2024 4:22 PM [facility] Comment:PF ratio calculated using the non-temperature corrected pO2 result. IONIZED CALCIUM, ARTERIAL 1.12(L) 1.15 - 1.33 mmol/L 07/29/2024 4:22 PM [facility] Glucose, Arterial 181 65 - 199 mg/dL 07/29/2024 4:22 PM [facility] Comment:Glucose Concentratio n >=200 mg/dL plus symptoms is consistent with Diabetes Mellitus. Blood ARTERIAL BLOOD / Unknown 07/29/2024 4:21 PM EST 07/29/2024 4:22 PM EST Aubree Silverio MD POINT OF CARE TEST ORDERABLES [facility] [place] [address] * POC, GLUCOSE (07/29/2024 4:19 PM EST) Glucometer, POC 185 65 - 199 mg/dL 07/29/2024 4:19 PM EST [facility] Comment:Supplemental ranges: <140 mg/dL before meals <180 mg/dL all other times of the day. Blood CAPILLARY BLOOD / Unknown 07/29/2024 4:19 PM EST 07/29/2024 4:19 PM EST Aubree Silverio MD POINT OF CARE TEST ORDERABLES Performing Organization Address City/[facility]/ZIP Co de Phone Number [facility] [place] [address] * Blood culture (07/29/2024 4:08 PM EST) Blood Culture No growth at 120 hours 08/03/2024 5:01 PM EST [facility] Blood VENOUS BLOOD SPECIMEN / Unknown Venipuncture / Unknown 07/29/2024 4:08 PM EST 07/29/2024 4:15 PM EST Aubree Silverio MD MICROBIOLOGY - BLO OD ORDERABLES Performing Organization Address City/[facility]/ZIP Co de Phone Number [facility] [place] [address] * Blood culture (07/29/2024 4:08 PM EST) Blood Culture No growth at 120 hours 08/03/2024 5:01 PM EST [facility] Blood VENOUS BLOOD SPECIMEN / Unknown Venipuncture / Unknown 07/29/2024 4:08 PM EST 07/29/2024 4:26 PM EST Aubree Silverio MD MICROBIOLOGY - BLO OD ORDERABLES [facility] [place] [address] * XR Chest One View (07/29/2024 2:30 PM EST) WORKSTATION ID [id number] RAD Anatomical Region Laterality Modality Chest N/A [...] who have questions please contact the health ambulatory care nurse that requested your imaging first. ? Electronically signed by: Chris Candelaria MD, [facility] ([phone]), at 07/29/2024 3:21 PM Narrative 07/29/2024 3:21 [...] patients who have questions please contactthe health ambulatory care nurse that requested your imaging first. Electronically signed by: Chris Candelaria MD, [facility]([phone]), at 07/29/2024 3:21 PM Vahe Marvin MD IMG DX ORDERABLES * (ABNORMAL) APTT (07/29/2024 2:03 PM EST) Pathologist [facility] Partial Thromboplastin Time >160(HHH) 25 - 37 sec 07/29/2024 2:56 PM EST [facility] Blood VENOUS BLOOD SPECIMEN / Unknown Venipuncture / Unknown 07/29/2024 2:03 PM EST 07/29/2024 2:13 PM EST Vahe Marvin MD HEMATOLOGY ORDERABLE S [facility] [place] [address] * (ABNORMAL) Prothrombin Time (07/29/2024 2:03 PM EST) Prothrombin Time 14.2(H) 9.4 - 12.5 sec 07/29/2024 2:56 PM EST [facility] International Normalization Ratio 1.3 <=4.9 07/29/2024 2:56 PM EST [facility] Comment: An INR < 2.0 [...] MD HEMATOLOGY ORDERABLE S Performing Organization Address City/[facility]/ZIP Co de Phone Number [facility] [place] [address] * CRP, acute inflammation (07/29/2024 2:03 PM EST) C-Reactive Protein <3.0 <=4.9 mg/L 07/29/2024 2:52 PM EST [facility] Blood VENOUS BLOOD SPECIMEN / Unknown Venipuncture / Unknown 07/29/2024 2:03 PM EST 07/29/2024 2:14 PM EST Vahe Marvin MD CHEMISTRY ORDERABLES Performing Organization Address City/[facility]/ZIP Co de Phone Number [facility] [place] [address] * Lipid Panel (Reflex Direct LDL) (07/29/2024 2:03 PM EST) Cholesterol, Total 133 mg/dL 07/29/2024 2:52 PM EST [facility] Comment: Desirable: < 200 mg/dL Borderline High: 200 - 239 mg/dL High: > or = 240 mg/dL Triglyceride 45 mg/dL 07/29/2024 2:52 PM EST [facility] Comment: Normal: <150 mg/dL Borderline High: 150-199 mg/dL High: 200-499 mg/dL Very High: > or =500 mg/dL HDL Cholesterol 58 mg/dL 2:52 PM [facility] Comment:Males: High Risk: <4 0 mg/dL LDL Cholesterol 64 mg/dL 2:52 PM [facility] Comment: Desirable: <100 mg/dL Above Desirable: 100-129 mg/dL Borderline High: 130-159 mg/dL High: 160-189 mg/dL Very High: > or =190 mg/dL Note: LDL calculation updated to the NIH LDL formula as of 04/15/2024 Non-HDL Cholesterol 75 mg/dL 07/29/2024 2:52 PM [facility] Comment: Desirable: <130 mg/dL Above Desirable: 130-159 mg/dL Borderline High: 160-189 mg/dL High: 190-219 mg/dL Very High: > or = 220 mg/dL Blood VENOUS BLOOD SPECIMEN / Unknown Venipuncture / Unknown 07/29/2024 2:03 PM EST 07/29/2024 2:14 PM EST [facility] - 07/29/2024 2:52 PM EST It [...] ACC/AHA Guidelines (most recently Rolf et al. JACC 06/15/22): * For individuals with atherosclerotic cardiovascular [...] Marvin MD CHEMISTRY ORDERABLES Performing Organization Address City/[facility]/ZIP Co de Phone Number [facility] [place] [address] * TSH [place] (07/29/2024 2:03 PM EST) [facility] Thyroid Stimulating Hormone 0.70 0.27 - 4.20 mcIU/mL 07/29/2024 2:52 PM EST [facility] Blood VENOUS BLOOD SPECIMEN / Unknown Venipuncture / Unknown 07/29/2024 2:03 PM EST 07/29/2024 2:14 PM EST Vahe Marvin MD CHEMISTRY ORDERABLES Performing Organization Address [facility]/ZIP Co de Phone Number [facility] [place] [address] * Hemoglobin A1c (07/29/2024 2:03 PM EST) [facility] Hemoglobin A1c 5.3 4.3 - 5.6 % 07/29/2024 2:41 PM EST [facility] Comment: Per ADA guidelines, without [...] red blood cell turnover may not be contracts representative of glycemic control. Reference Interval: 4.3 - 5.6% 5.7 - 6.4%: Consistent with prediabetes >=6.5%: Consistent with diagnosis of diabetes mellitus Estimated Average Glucose 07/29/2024 2:41 PM EST [facility] Comment:Estimated Average Gl ucose not appropriate for patients over 70 years of age. Blood VENOUS BLOOD SPECIMEN / Unknown Venipuncture / Unknown 07/29/2024 2:03 PM EST 07/29/2024 2:14 PM EST [facility] - 07/29/2024 2:41 PM EST Estimated average glucose (eAG) is calculated from the equation described in: Quinten ALVES, Rikki J, Reno R, et al. ??Translating the A1C assay into estimated average glucose values. ??Diabetes Care 2008:31(8):5492-9989. Additional resources are available on the ADA website (diabetes.org). Vahe Marvin MD CHEMISTRY ORDERABLES [facility] [place] [address] * (ABNORMAL) CBC (with Diff) (07/29/2024 2:03 PM EST) White Blood Cell 19.50(H) 4.00 - 9.50 x10(3)/mc L 07/29/2024 2:18 PM EST [facility] Red Blood Cell 4.81 4.58 - 5.54 x10(6)/mc L 07/29/2024 2:18 PM [facility] Hemoglobin 13.1(L) 13.7 - 16.5 g/dL 07/29/2024 2:18 PM [facility] Hematocrit 40.1(L) 40.5 - 48.5 % 07/29/2024 2:18 PM [facility] Mean Cell Volume 83.4 82.9 - 93.1 fL 07/29/2024 2:18 PM [facility] Mean Cell Hemoglobin 27.2(L) 27.5 - 32.1 pg 07/29/2024 2:18 PM [facility] Mean Cell Hemoglobin Concentration 32.7 32.0 - 35.7 g/dL 07/29/2024 2:18 PM [facility] Platelet 236 145 - 357 x10(3)/mc L 07/29/2024 2:18 PM [facility] Mean Platelet Volume 10.6 7.6 - 12.9 fL 07/29/2024 2:18 PM [facility] RDW Standard Deviation 43.7 36.0 - 45.0 fL 07/29/2024 2:18 PM [facility] RDW coefficient of variation 14.3(H) 11.4 - 13.8 % 07/29/2024 2:18 PM [facility] NRBC% auto 0.0 % 07/29/2024 2:18 PM [facility] NRBC Absolute <0.01 <0.01 x10(3)/mc L 07/29/2024 2:18 PM [facility] Neutrophil % 93.6 % 07/29/2024 2:18 PM [facility] Neutrophil Absolute (ANC) - Automated 18.28(H) 1.70 - 6.10 x10(3)/mc L 07/29/2024 2:18 PM [facility] Lymph % 2.7 % 07/29/2024 2:18 PM [facility] Lymph Absolute 0.52(L) 0.90 - 3.20 x10(3)/mc L 07/29/2024 2:18 PM EST [facility] Monocyte % 2.9 % 07/29/2024 2:18 PM EST [facility] Monocyte Absolute 0.56 0.30 - 0.90 x10(3)/mc L 07/29/2024 2:18 PM EST [facility] Eos % 0.0 % 07/29/2024 2:18 PM EST [facility] Eos Absolute <0.04 0.00 - 0.40 x10(3)/mc L 07/29/2024 2:18 PM EST [facility] Basophil % 0.3 % 07/29/2024 2:18 PM [facility] Baso Absolute 0.05 0.00 - 0.10 x10(3)/mc L 07/29/2024 2:18 PM EST [facility] Immature Gran % 0.5 % 2:18 PM [facility] Immature Gran Absolute 0.09(H) 0.00 - 0.04 x10(3)/mc L 07/29/2024 2:18 PM EST [facility] Blood VENOUS BLOOD SPECIMEN / Unknown Venipuncture / Unknown 07/29/2024 2:03 PM EST 07/29/2024 2:13 PM EST Vahe Marvin MD HEMATOLOGY ORDERABLE S Performing Organization Address City/State/[facility] Co de Phone Number [facility] [place] [address] * Phosphorus (07/29/2024 2:03 PM EST) Phosphorus 2.5 2.5 - 4.5 mg/dL 07/29/2024 2:52 PM EST [facility] Blood VENOUS BLOOD SPECIMEN / Unknown Venipuncture / Unknown 07/29/2024 2:03 PM EST 07/29/2024 2:14 PM EST Vahe Marvin MD CHEMISTRY ORDERABLES [facility] [place] [address] * Magnesium (07/29/2024 2:03 PM EST) Pathologist [facility] Magnesium 0.70 0.69 - 1.07 mMol/L 07/29/2024 2:52 PM EST [facility] Blood VENOUS BLOOD SPECIMEN / Unknown Venipuncture / Unknown 07/29/2024 2:03 PM EST 07/29/2024 2:14 PM EST Vahe Marvin MD CHEMISTRY ORDERABLES Performing Organization Address City/[facility]/ZIP Co de Phone Number [facility] [place] [address] * (ABNORMAL) Comprehensive metabolic panel (07/29/2024 2:03 PM EST) Pathologist [facility] Glucose 243(H) 65 - 199 mg/dL 07/29/2024 3:11 PM [facility] Comment:Glucose Concentratio n >=200 mg/dL plus symptoms is consistent with Diabetes Mellitus. Blood Urea Nitrogen 13 10 - 20 mg/dL 07/29/2024 3:11 PM [facility] Creatinine 0.88 0.80 - 1.50 mg/dL 07/29/2024 3:11 PM [facility] Sodium 138 135 - 145 mMol/L 07/29/2024 3:11 PM [facility] Potassium 3.6 3.5 - 5.0 mMol/L 07/29/2024 3:11 PM [facility] Chloride 104 98 - 107 mMol/L 07/29/2024 3:11 PM [facility] Carbon Dioxide 19(L) 22 - 31 mMol/L 07/29/2024 3:11 PM [facility] Anion Gap 15 5 - 15 mMol/L 07/29/2024 3:11 PM [facility] Calcium 8.0(L) 8.5 - 10.5 mg/dL 07/29/2024 3:11 PM EST [facility] Protein, Total 6.0(L) 6.1 - 8.0 g/dL 07/29/2024 3:11 PM [facility] Albumin 3.6 3.2 - 5.2 g/dL 07/29/2024 3:11 PM [facility] Aspartate Aminotransferase 07/29/2024 3:11 PM [facility] Comment:Unable to report due to hemolysis. Alanine Aminotransferase 56(H) 0 - 55 unit/L 07/29/2024 3:11 PM [facility] Alkaline Phosphatase 58 40 - 130 unit/L 07/29/2024 3:11 PM [facility] Bilirubin, Total 0.5 <=1.3 mg/dL 07/29/2024 3:11 PM [facility] Est Glomerular Filtration Rate - Male 91 mL/min/1. 73 m?? 07/29/2024 3:11 PM [facility] Comment: This patient's estimated GFR [...] PM EST Vahe Marvin MD CHEMISTRY ORDERABLES [facility] [place] [address] * (ABNORMAL) Troponin - Single (07/29/2024 2:03 PM EST) [facility] Troponin-T, High Sensitivity >10,000(H ) <=22 ng/L 07/29/2024 2:52 PM EST [facility] Comment: This patient's troponin T [...] troponin value can be found in the [facility] Laboratory Test Catalog Troponin - [email or web address]-.testcatalog.org/catalogs/565/files/90348 Reference: Fourth [place] Definition of Myocardial Infarction. Journal of the [place] [employer] 2018;72:5497-9687 Blood VENOUS BLOOD SPECIMEN / Unknown Venipuncture / Unknown 07/29/2024 2:03 PM EST 07/29/2024 2:14 PM EST Vahe Marvin MD CHEMISTRY ORDERABLES [facility] [place] [address] * (ABNORMAL) Blood Gas, Venous POC (07/29/2024 2:01 PM EST) [facility] pH, Venous 7.30(L) 7.32 - 7.42 07/29/2024 2:02 PM EST [facility] PCO2, Venous 42 38 - 58 mmHg 07/29/2024 2:02 PM EST [facility] PO2, Venous 39 16 - 65 mmHg 07/29/2024 2:02 PM [facility] Bicarbonate, Venous 20.1(L) 22 - 31 mmol/L 07/29/2024 2:02 PM [facility] Base Excess, Venous -6.4(L) 1.9 - 4.5 mmol/L 07/29/2024 2:02 PM [facility] Hemoglobin, Venous 14.2 13.7 - 16.5 g/dL 07/29/2024 2:02 PM [facility] Oxyhemoglobin, Venous 69.3 % 07/29/2024 2:02 PM [facility] Carboxyhemoglobin , Venous 0.8 % 07/29/2024 2:02 PM [facility] Comment: Nonsmokers: 0.5-1.5% COHB ?? Smokers: Variable ??but usually less than 10% ?? Toxic: 20-30% COHB ?? Lethal: Greater than 60% COHB Methemoglobin, Venous 0.3 <=1.5 % 07/29/2024 2:02 PM [facility] Sodium, Venous 137 135 - 145 mmol/L 07/29/2024 2:02 PM [facility] Potassium, Venous 3.6 3.5 - 5.0 mmol/L 07/29/2024 2:02 PM [facility] Chloride, Venous 103 98 - 107 mmol/L 07/29/2024 2:02 PM [facility] Glucose, Venous 229(H) 65 - 199 mg/dL 07/29/2024 2:02 PM [facility] Comment:Glucose Concentratio n >=200 mg/dL plus symptoms is consistent with Diabetes Mellitus. Lactate, Venous 3.1(H) 0.5 - 2.2 mmol/L 07/29/2024 2:02 PM [facility] Ionized Calcium, Venous 1.11(L) 1.15 - 1.33 mmol/L 07/29/2024 2:02 PM [facility] Blood VENOUS BLOOD SPECIMEN / Unknown 07/29/2024 2:01 PM EST 07/29/2024 2:02 PM EST Vahe Marvin MD POINT OF CARE TEST O RDERABLES Performing Organization Address [facility]/State/ZIP Co de Phone Number [facility] [place] [address] * CARDIAC CATHETERIZATION (07/29/2024 1:20 PM EST) Anatomical Region Laterality Modality Other Narrative 07/29/2024 2:02 PM EST ?[facility] ? Cardiac Catheterization/Intervention Report ? Patient Name: Korey Montoya Kyrie. ? Procedure Date: 07/29/2024 ? A #: [id number] ? Primary Physician: Vahe Marvin ? Case #: [id number] ? File Name: [id number] ? Catheterization Order Number: [id number] ? [facility] ? Final Report [place], [place] ? Patient Name: ? Korey Montoya ?ID#: ?[id number] ? : ?1950 ? Procedure Date: ? July 29, 2024 ?Case #: ? [id number] ? Room: ? 5 ? Case Physician: ? Vahe S Shavonne, M.D. ? Start: ?11:46 ? Admission: ??07/29/2024 ? Referring Physician: ??Chaparro A Hanissian, M.D. ? Procedures: ?* Coronary Angiography ?* [...] procedure was Emergent. The indication for ?the operations label clerk visit is ACS less than or equal [...] 3.5 guiding catheter and a 3.[address] [facility] [facility] [place] [address] ??20 Mhz using ?Manual pullback. ??Imaging [...] ? A premounted 3.00 x 22 mm [place] (LOW) was deployed ? with a maximum [...] atmospheres. ??A premounted 3.00 x 08 mm [place] (LOW) ? was deployed with a maximum [...] dose administered prior to arrival in the operations label clerk. ?Recommended anti-platelet/anti-thrombotic regimen: ?Start aspirin 81 mg daily now and continue for 12 months then stop. ?Start clopidogrel 75 mg daily now and continue for indefinitely. ?These recommendations are made at the time of the intervention. Patient ?and provider preferences or a changing clinical situation may require ?modification of this regimen. Consult [facility] Interventional Cardiology for ?questions. ?The [...] able ?to start weaning his inotropes/vasopressors. A [place] Colette catheter was ?placed demonstrating improvement in [...] ventricular assist device insertion, right heart ?catheterization, [place] (flow directed cath) insertion, access site ?angiography, vascular ultrasound, venous line / sheath insert and vascular ?closure device. ? Vahe S Shavonne, M.D. ? Electronically Signed by: Vahe Cobosstein, M.D. ? Report Finalized: 07/29/2024 ??13:55 ? Report Last Ammended: 07/30/2024 ??10:15 ? Procedure Note Vahe Marvin MD - 07/30/2024 [facility] Cardiac Catheterization/Intervention Report Patient Name: Korey Montoya Procedure Date: 07/29/2024 A #: [id number] Primary Physician: Vahe Marvni Case #: [id number] File Name: [id number] Catheterization Order Number: [id number] [facility] FinalReport [place], [place] Patient Name: Korey Montoya ID#:[id number] :1950 Procedure Date: July 29, 2024 Case #: [id number] Room: 5 Case Physician: Vahe Mavrin M.D. Start: 11:46 Admission:07/29/2024 Referring Physician: Chaparro [...] was designated as ASA Class IV. [facility] 4: Vulnerable. Diagnostic Tests: Electrocardiography: EKG was assessed by ECG. EKG was Abnormal. EKG showed STDeviation >= 0.5 mm. Medications Prior to Procedure: Angiotensin II Receptor Elvis and Statin. Indications for Diagnostic Cath: The priority of the diagnostic procedure was Emergent. Theindication for the operations label clerk visit is ACS less than or equal [...] 3.5 guiding catheter and a 3.[address] [facility] [place] [address] 20 Mhzusing Manual pullback. Imaging was [...] The priority for the procedure was Emergent.The [facility] indication for the procedure was STEMI-Immediate PCI [...] The lesion was predilated with a 2.00mm [id number] MM balloon with a maximum inflation pressure of 12atmospheres. A premounted 3.00 x 22 mm [place] (LOW) wasdeployed with a maximum inflation pressure [...] atmospheres. A premounted 3.00 x 08 mm [place](LOW) was deployed with a maximum inflation pressure [...] dose administered prior to arrival in the operations label clerk. Recommended anti-platelet/anti-thrombotic regimen: Start aspirin 81 mg daily now and continue for 12 months then stop. Start clopidogrel 75 mg daily now and continue for indefinitely. These recommendations are made at the time of the intervention.Patient and provider preferences or a changing clinical situation mayrequire modification of this regimen. Consult [facility] Interventional Cardiologyfor questions. The 1 [...] wereable to start weaning his inotropes/vasopressors. A [place] Colette catheterwas placed demonstrating improvement in his [...] ventricular assist device insertion, right heart catheterization, [place] (flow directed cath) insertion, access site angiography, vascular ultrasound, venous line / sheath insert andvascular closure device. Vahe Marvin M.D. Electronically Signed by: Vahe Marvin M.D. Report Finalized: 07/29/2024 13:55 Report Last Ammended: 07/30/2024 10:15 Vahe Marvin MD CARDIAC CATH ORDERAB LES * (ABNORMAL) BLOOD GAS, POC (07/29/2024 12:46 PM EST) Sodium, POC 139 135 - 145 mmol/L 07/30/2024 7:30 AM [facility] Potassium, POC 3.4(L) 3.5 - 5.0 mmol/L 07/30/2024 7:30 AM [facility] [facility] pH, POC 7.33(L) 7.35 - 7.45 07/30/2024 7:30 AM [facility] Ionized Calcium, POC 1.13(L) 1.15 - 1.33 mmol/L 07/30/2024 7:30 AM [facility] pCO2, POC 38 35 - 45 mmHg 07/30/2024 7:30 AM [facility] pO2, POC 94 85 - 104 mmHg 07/30/2024 7:30 AM [facility] Base Excess, POC -6.0(L) -3.0 - 3.0 mmol/L 07/30/2024 7:30 AM [facility] Hematocrit, POC 39.0(L) 40.5 - 48.5 %PCV 07/30/2024 7:30 AM [facility] Hemoglobin, POC 13.3(L) 13.7 - 16.5 g/dL 07/30/2024 7:30 AM [facility] Comment:The calculation of h emoglobin from hematocrit assumes a normal MCHC. Bicarbonate, POC 19.8(L) 20.0 - 26.0 mmol/L 07/30/2024 7:30 AM [facility] Carbon Dioxide, POC 21(L) 22 - 31 mmol/L 07/30/2024 7:30 AM [facility] Blood VENOUS BLOOD SPECIMEN / Unknown 07/29/2024 12:46 PM EST 07/30/2024 7:30 AM EST Vahe Marvin MD POINT OF CARE TEST O RDERABLES [facility] [place] [address] * (ABNORMAL) BLOOD GAS, POC (07/29/2024 12:12 PM EST) Sodium, POC 135 135 - 145 mmol/L 07/30/2024 7:30 AM [facility] Potassium, POC 3.8 3.5 - 5.0 mmol/L 07/30/2024 7:30 AM [facility] pH, POC 7.27(LLL) 7.35 - 7.45 07/30/2024 7:30 AM [facility] Ionized Calcium, POC 1.14(L) 1.15 - 1.33 mmol/L 07/30/2024 7:30 AM [facility] pCO2, POC 43 35 - 45 mmHg 07/30/2024 7:30 AM [facility] pO2, POC 131(H) 85 - 104 mmHg 07/30/2024 7:30 AM [facility] Base Excess, POC -7.0(L) -3.0 - 3.0 mmol/L 07/30/2024 7:30 AM [facility] Hematocrit, POC 36.0(L) 40.5 - 48.5 %PCV 07/30/2024 7:30 AM [facility] Hemoglobin, POC 12.2(L) 13.7 - 16.5 g/dL 07/30/2024 7:30 AM [facility] Comment:The calculation of h emoglobin from hematocrit assumes a normal MCHC. Bicarbonate, POC 19.7(L) 20.0 - 26.0 mmol/L 07/30/2024 7:30 AM [facility] Carbon Dioxide, POC 21(L) 22 - 31 mmol/L 07/30/2024 7:30 AM [facility] Blood VENOUS BLOOD SPECIMEN / Unknown 07/29/2024 12:12 PM EST 07/30/2024 7:30 AM EST Vahe Marvin MD POINT OF CARE TEST O RDERABLES Performing Organization Address City/State/[facility] Co de Phone Number [facility] [place] [address] documented in this encounter Visit Diagnoses Not [...] Given 07/30/2024 8:14 AM EST 650 mg AMIOdarone (CORDARONE) bolus from bag Administer over 10 Minutes, PRN, Starting on 07/29/24 at 1232, Until Tue07/30/24 at 1307, Intra-Operative (Intra-Procedure), Routine Given 07/29/2024 12:32 PM EST 150 mg AMIOdarone (Nexterone) (1.8 mg/mL) in dextrose (iso-osmotic) infusion CONTINUOUS PRN, Starting on 07/29/24 at 1239, Until Tue07/30/24 at 1306, Intra-Operative (Intra-Procedure) Rate/Dose Verify 07/29/2024 2:00 PM EST 33.3 mL/hr New Bag 07/29/2024 12:39 PM EST 1 mg/min 33.3 mL/hr aspirin EC tablet 81 mg 81 mg, [...] Given 08/01/2024 4:56 PM EST 80 mg clopidogreL (Plavix) tablet 75 mg 75 mg, [...] PRN, Starting on Tue07/29/24 at 1201, Until Tue07/29/24 at 1607, Intra-Operative (Intra-Procedure) Rate/Dose Verify 07/29/2024 2:00 PM EST 15 mL/hr Rate/Dose Change 07/29/2024 1:09 PM EST 2 mcg/min 15 mL/h r Rate/Dose Change 07/29/2024 12:56 PM EST 5 mcg/min 37.5 m L/hr fentaNYL (pf) (50 mcg/mL) multi-dose injection PRN, Starting on 07/29/24 at 1149, Until 07/30/24 at 1306, Intra-Operative (Intra-Procedure), Routine Given 07/29/2024 11:49 AM EST 25 mcg glucagon (Glucagen) (1 mg/mL) injection solution 1 [...] tube = 37.5 grams.), Routine heparin (porcine) (1,000 units/mL) injection PRN, Starting on 07/29/24 at 1151, Until 07/30/24 at 1306, Intra-Operative (Intra-Procedure), Routine Given 07/29/2024 11:51 AM EST 5,000 Units iohexoL (Omnipaque) (350 mg/mL) solution PRN, Starting on 07/29/24 at 1321, Until 07/30/24 at 1306, Intra-Operative (Intra-Procedure), Routine Given 07/29/2024 1:21 PM EST 86 mLs losartan (Cozaar) tablet 25 mg 25 mg, [...] (1 mg/mL) multi-dose injection PRN, Starting on Tue07/29/24 at 1149, Until Tue07/30/24 at 1307, Intra-Operative (Intra-Procedure), Routine Given 07/29/2024 11:49 AM EST 1 mg nitroGLYcerin 100 mcg/mL intracoronary dilution PRN, Starting on Tue07/29/24 at 1147, Until Tue07/30/24 at 1307, Intra-Operative (Intra-Procedure), Routine Given 07/29/2024 11:47 AM EST 50 mcg NORepinephrine (Levophed) (16 mcg/mL) in dextrose 5% 250 mL infusion CONTINUOUS PRN, Starting on Tue07/29/24 at 1155, Until Tue07/30/24 at 1307, Intra-Operative (Intra-Procedure), Routine Rate/Dose Verify 07/30/2024 8:00 AM EST 75 mL/hr Rate/Dose Verify 07/30/2024 6:00 AM EST 75 mL/h r Rate/Dose Verify 07/30/2024 4:00 AM EST 75 mL/h r spironolactone (Aldactone) tablet 12.5 mg 12.5 mg, [...] 12:40 PM EST 0.04 Units/min 12 mL/hr verapamiL (Isoptin) (2.5 mg/mL) injection PRN, Starting on 07/29/24 at 1147, Until Tue07/30/24 at 1307, Administer over 2 Minutes, Intra-Operative (Intra-Procedure) Given 07/29/2024 11:[address] 2.5 mg documented in this encounter Active and [...] OPEN, Routine 0845 (Given - Provider: Tonya Watson, RENEA) 0934 (Given - Provider: Tonya Watson, RN) tamsulosin (Flomax) capsule 0.4 mg 0.4 [...] Routine documented in this encounter Care Teams Contact Center Associate Relationship Specialty Start Date End Date Yoel Artis APRN [address] [place] [address] PCP - General Internal Medicine 11/18/22 07/29/24 documented as of this encounter
--- OUTSIDE RECORDS SUMMARY | 2024-08-22 11:34 | XMS_ITS | Encounter Summary ---
[place] [address] Care Team Providers Care Transfer And Pumphouse Operator Chief Name Role Phone Alexia Mtz CONVEYOR MAINTENANCE MECHANIC Primary Care Provider [phone] Encounter Details Date Type Department Care Team (Late st Contact Info) Description 07/29/2024 External Results [place] [phone] Social History Tobacco Use Types Packs/Day Years Used Date Smoking Tobacco: Former Cigarettes Smokeless Tobacco: Never Alcohol Use Standard Drinks/Week Comments Not Currently 0 (1 standard drink = 0.6 oz pur e alcohol) [facility] Utilities Answer Date Recorded In the [...] any time in the past 12 m [facility], were you homeless or living in a long-term (including now)? No 07/30/2024 IPV Inpatient Questions [...] 10:00 AM EST Office Visit Cardiology at [address] [phone] Mushtaq Murphy APRN documented as of this encounter Procedures Procedure Name Priority Date/Time Associated Diagnosis Comments MISC EXTERNAL CARDIOLOGY RESULT Routine 07/29/2024 10:13 AM EST documented in this encounter Results * External Cardiology Result (07/29/2024 10:13 AM EST) Anatomical Region Laterality Modality Other Historical Provider EXTERNAL CARDIOLO GY RESULT documented in this encounter Visit Diagnoses Not on filedocumented in this encounter Care Teams Transfer And Pumphouse Operator Chief Relationship Specialty Start Date End Date Alexia Mtz APRN [address] [place] [address] PCP - General Family Medicine 07/30/24 documented as of this encounter
--- OUTSIDE RECORDS SUMMARY | 2024-08-22 11:34 | XMS_ITS | Encounter Summary ---
Author Organization [facility] [place] [address] Care Team Providers Care Labor Relations Or Personnel Negotiator Name Role Phone Alexia Mtz LANCE CREWMEMBER Primary Care Provider [phone] Encounter Details Date Type Department Care Team (Late st Contact Info) Description 06/25/2024 Lab [place] [address] Aubrey Cali MD [address] [place] [id number] Pyuria Social History Tobacco Use Types Packs/Day Years [...] 10:00 AM EST Office Visit Cardiology at [address] [phone] Mushtaq Murphy APRN documented as of this encounter Procedures Procedure Name Priority Date/Time Associated Diagnosis Comments URINE CULTURE Routine 06/25/2024 11:55 AM EDT Pyuria documented in this encounter Results * Urine culture (06/25/2024 11:55 AM EDT) Urine Culture No growth 06/26/2024 12:22 PM EDT [facility] Urine URINE SPECIMEN OBTAINED BY CLEAN CATCH PROCEDURE / Unknown 06/25/2024 11:55 AM EDT 06/25/2024 5:18 PM EDT Aubrey Cali MD MICROBIOLOGY - GENER AL ORDERABLES [facility] [place] [address] documented in this encounter Visit Diagnoses Diagnosis Pyuria Other nonspecific finding on examination of urine documented in this encounter Care Teams Labor Relations Or Personnel Negotiator Relationship Specialty Start Date End Date Alexia Mtz, LANCE CREWMEMBER [address] [place] [address] PCP - General Family Medicine 07/30/24 documented as of this encounter
--- OUTSIDE RECORDS SUMMARY | 2024-08-22 11:34 | XMS_ITS | Encounter Summary ---
Author Organization [facility] Address [facility] [place] [address] Care Team Providers Care Supervisory Lifeguard Name Role Phone Yoel Artsi FREDRICK Primary Care Provider [phone] Encounter Details Date Type Department Care Team (Late st Contact Info) Description 07/29/2024 [place] [phone] Ivan Hernandez MD [facility] [address] Social History Tobacco Use Types Packs/Day Years Used Date Smoking Tobacco: Former Cigarettes Smokeless Tobacco: Never Alcohol Use Standard Drinks/Week Comments Not Currently 0 (1 standard drink = 0.6 oz pur e alcohol) [facility] Utilities Answer Date Recorded In the past 12 months has e [employer], gas, oil, or water [employer] threatened to shut off services in your [...] any time in the past 12 m [facility], were you homeless or living in a residential (including now)? No 07/30/2024 IPV Inpatient Questions [...] AM EDT documented as of this encounter Progress Notes * Ivan Hernandez MD - 07/29/2024 10:20 AM EST STEMI Alert Note Index Event Data Initial Contact Date and Time: 07/29/2024 9:50 AM Hospital to which patient presented: [facility] If Hospital to which patient presented= [facility]: ED Walk In Medical History (prior to current presentation) Atrial Fibrillation/ Atrial Flutter: Unknown Hypertension: Yes Dyslipidemia: Yes Angina: Yes Myocardial Infarction: Unknown Diabetes Mellitus: Unknown Prior Percutaneous Coronary Intervention: Unknown Prior Coronary Artery Bypass Graft: Unknown Cerebrovascular Disease: Unknown Tobacco Use: Unknown Presenting Symptoms per OSH/EMS Free Text 74 M w/ PMHx of HTN, HLD, who presents with chest pain. Reports that chest pain started afew days ago and he presented to the ED yesterday with intermittent chest pain. Trop in the ED was 12>12>14, and he remained pain free so he was discharged. Severe substernal pain returned this AM at7 with radiation to the L arm and he presented back to the ED. Time of continuous symptom onset to ED presentation Chest Pain: Yes Shortness of breath: No Syncope: No Cardiac Arrest: No ECG Date and Time Initial ED EC07/29/2024 9:56 AM Rhythm: Sinus EKG Interpretation(choose all that apply): Anterior ST elevation, Inferior ST elevation and LateralST elevation Meets Strict STEMI ECG Criteria New ST elevation in V2-V3 of >- 2 mm in men, or >- 1.5 mm in women: Yes New ST elevation of >1 mm in other contiguous leads including limb leads: Yes Exam at Presentation HR: 89 SBP: 120 DBP: 42 Killip class: I (no rales) LIZ Risk Score for STEMI Diabetes, Hypertension or Angina: Yes (1 point) Systolic BP <100 mmhg: No (0 points) Heart rate >100: No (0 points) Killip Class II-IV (JVD or any pulmonary exam findings of CHF): No (0 points) Anterior ST Elevation or LBBB: Yes (1 point) Treatment Asprin (Any): Yes Adjunctive PLT Inhibitor: Clopidogrel 600mg Anti-thrombotic used: Unfractionated Heparin Plan STEMI Alert called: Yes Tack Maker Activated by: Waiver Analyst Initial Disposition: Admit Tack Maker documented in this encounter Plan of Treatment Upcoming Encounters Date Type Department Care Team (Late st Contact Info) Description 10/01/2024 10:00 AM EST Office Visit Cardiology at [address] [phone] Mushtaq Murphy APRN documented as of this encounter Visit Diagnoses Not on filedocumented in this encounter Care Teams Supervisory Lifeguard Relationship Specialty Start Date End Date Yoel Artis APRN [address] [place] [address] PCP - General Internal Medicine 11/18/22 07/29/24 documented as of this encounter
--- OUTSIDE RECORDS SUMMARY | 2024-08-22 11:35 | XMS_ITS | Encounter Summary ---
Author Organization Replaced By [facility] [place] [address] Care Team Providers Care Estate And Trust Tax Principal Name Role Phone Yoel Artis Ute ALCALA Primary Care Provider [phone] Reason for Visit * Auth/Cert (Routine) Specialty Diagnoses / Procedures Referred By Conteleazar t Referred To Contact Diagnoses Anal spasm Fecal smearing Constipation, unspecified Rectal pain, fecal smearing Procedures PRO COLONOSCOPY, DIAGNOSTIC PRO COLONOSCOPY, BIOPSY PRO COLONOSCOPY, REMV LESN, SNARE COLONOSCOPY, DIAGNOSTIC (WRVU 3.26) Brandan Mcgovern MD [facility] [place] [address] [facility] Referral ID Status Reason Start Date Expiration Date Visits Re quested Visits Authorized [id number] 1 1 Encounter Details Date Type Department Care Team (Late st Contact Info) Description 08/30/2023 11:00 AM EST - 08/30/2023 12:00 PM EST [place] [address] Brandan Mcgovern MD [facility] [place] [address] COLONOSCOPY, POLYPECTOMY, REMOVAL LESION BY SNARE (WRVU 4.57) Social History Tobacco Use Types Packs/Day Years [...] Sign Reading Time Taken Comments Blood Pressure 138/86 08/30/2023 12:00 PM EST Pulse 57 08/30/2023 11:24 AM EST Temperature 37 ??C (98.6 ??F) 08/30/2023 10:22 AM EST Respiratory Rate 18 08/30/2023 12:00 PM EST Oxygen Saturation 100% 08/30/2023 12:00 PM EST Inhaled Oxygen Concentration - - Weight 63.5 kg (140 lb) 08/30/2023 10:22 AM EST Height 167.6 cm (5' 6) 08/30/2023 10:22 AM EST Body Mass Index 22.6 08/30/2023 10:22 AM EST documented in this encounter Discharge Instructions * Discharge Instructions* Maldonado Schmitz RN - 08/30/2023 11:27 AM EST Colonoscopy: What to Expect at Home Your Recovery Your doctor will talk to you about when you will need your next colonoscopy. Your doctor can help you decide how often you need to be checked. This will depend on the results of your test and your risk for colorectal cancer. After the test, you may be bloated or have gas pains. You may need to pass gas. If a biopsy was done or a polyp was removed, you may have streaks of blood in your stool (feces) for a few days. Problems such as heavy rectal bleeding may not occur until several weeks after the test. This isn't common. But it can happen after polyps are removed. This care sheet gives you a general idea about how long it will take for you to recover. But each person recovers at a different pace. Follow the steps below to get better as quickly as possible. How can you care for yourself at home? Activity Rest when you feel tired. You can do your normal activities when it feels okay to do so. Diet Follow your doctor's directions for eating. Unless your doctor has told you not to, drink plenty of fluids. This helps to replace the fluids that were lost during the colon prep. Do not drink alcohol. Medicines Your doctor will tell you if and when you can restart your medicines. He or she will also give you instructions about taking any new medicines. If you take blood thinners, such as warfarin (Coumadin), clopidogrel (Plavix), or aspirin, be sure to talk to your doctor. He or she will tell you if and when to start taking those medicines again. Make sure that you understand exactly what your doctor wants you to do. If polyps were removed or a biopsy was done during the test, your doctor may tell you not to take aspirin or other anti-inflammatory medicines for a few days. These include ibuprofen (Advil, Motrin) and naproxen (Aleve). Other instructions For your safety, do not drive or operate machinery until the medicine wears off and you can think clearly. Your doctor may tell you not to drive or operate machinery until the day after your test. Do not sign legal documents or make major decisions until the medicine wears off and you can think clearly. The anesthesia can make it hard for you to fully understand what you are agreeing to. Additional Information for Sedation Patients For patients who received sedation: You may have received medications before and/or during your procedure which effects your judgement and reaction time. Do not drive, operate machinery, drink alcoholic beverages or make important decisions for 24 hours. Be careful on stairs as you may be unsteady on your feet. You may eat a regular diet as tolerated. Do not smoke if you are alone. IV site: Slight redness or tenderness is normal, you can use a warm compress if you would like. If tenderness and/or redness increase or if foul drainage occurs, please contact your Doctor. Please call [phone] before 8pm Mon-Fri with problems, questions or concerns. If you call after 8pm or on weekends, call the Hospital at [phone] and ask to speak to the [employer] community organization worker and the preservative filler machine operator will contact that person for you. When should you call for help? Call 192 anytime you think you may need emergency care. For example, call if: You passed out (lost consciousness). You pass maroon or bloody stools. You have trouble breathing. Call your doctor now or seek immediate medical care if: You have pain that does not get better after you take pain medicine. You are sick to your stomach or cannot drink fluids. You have new or worse belly pain. You have blood in your stools. You have a fever. You cannot pass stools or gas. Watch closely for changes in your health, and be sure to contact your doctor if you have any problems. Where can you learn more? [facility] View your After Visit Summary and more online at [email or web address] If you would like to provide feedback about your hospital experience, please call the Office of Patient and Family Relations at . If you have received this After Visit Summary in error, please immediately return it in person to the department, or notify the [facility] Privacy Office by calling toll free at between the hours of 8AM and 5PM to arrange for our retrieval of the documents at no cost to you. Content Version: 12.2 ?? [id number] [employer]. Care instructions adapted under license by [facility]. If you have questions about a medical condition or this instruction, always ask your healthcare professional. [employer] disclaims any warranty or liability for your use of this information. documented in this encounter Medications at Time [...] evening. 04/17/2023 08/04/2024 nitroGLYcerin (NITROLINGUAL) 400 mcg/spray [place], Non-AerosolIndications:P roctalgia fugax,Fecal smearing,Constipation, unspecified constipation type 1 spray to anus for proctalgia fugax as needed, not to exceed once daily 12 g 06/01/2023 08/04/2024 documented as of this encounter H&P Notes * Brandan Mcgovern MD - 08/30/2023 10:44 AM EST Patient Name: Korey Montoya Patient Age: 73 y.o. Birthdate: 1950 Admit date: 08/30/2023 Attending Physician: Brandan Mcgovern MD Gastroenterology and Hepatology Pre-Procedure History and Physical Exam Procedure: Colonoscopy: Indication: Rectal pain Patient Active Problem List Diagnosis Code Dizziness R42 EXAM: HEENT: Airway examined, oropharynx clear Mallampati Score: II (soft palate, uvula, fauces visible) LUNGS: Clear to auscultation HEART: Regular rate and rhythm, normal S1, S2 ABDOMEN: Normal bowel sounds, soft, non tender, non distended, A/P Proceed with the planned endoscopic procedure. ASA 2 - Patient with mild systemic disease with no functional limitations Sedation Plan: moderate (conscious sedation) Risks and benefits of the procedure explained to the patient. Consent signed. documented in this encounter Plan of Treatment Upcoming Encounters Date Type Department Care Team (Late st Contact Info) Description 10/01/2024 10:00 AM EST Office Visit Cardiology at [address] [phone] Mushtaq Murphy APRN documented as of this encounter Procedures Procedure Name Priority Date/Time Associated Diagnosis Comments SPECIMEN TO PATHOLOGY Routine 08/30/2023 11:23 AM EST SURGICAL PATHOLOGY REPORT Routine 08/30/2023 11:21 AM EST COLONOSCOPY Routine 08/30/2023 10:57 AM EST Colonoscopy, Remv Lesn, Snare ([id number]) 08/30/2023 10:44 AM EST Proctalgia fugax Fecal smearing Constipation, unspecified constipation type documented in this encounter Results * Specimen to Pathology (08/30/2023 11:23 AM EST) AP Specimen 08/30/2023 11:2 3 AM EST 08/30/2023 11:23 AM EST Narrative [facility] - 08/30/2023 11:23 AM EST Specimen requisition ordered. ??Separate Pathology report to follow Brandan Mcgovern MD PATHOLOGY/CYTOLOGY O JOSH Performing Organization Address [facility]/ZIP Co de Phone Number [facility] [place] [address] * Surgical Pathology Report (08/30/2023 11:21 AM EST) Final Diagnosis [id number] ? Location: 4T; EA12; A The signing pathologist has (i) examined the relevant preparation(s) for the specimen(s) and (ii) rendered or confirmed the diagnosis(es). . ?Surgical Pathology DIAGNOSIS A - Sigmoid colon polyp, resection (Multiple): - ??Tubular adenoma. CR-PX Electronically signed by: ?Blake ORTEGA PhD, Yulia Verified: ??09/08/2023 14:48 ??Pathologist Performed at: ??-[facility] Dept. of Pathology, [place] [address] Storm Door Maker: Fercho Chan MD, AP, ??CLIA Certificate: [id number] SPECIMEN(S) SUBMITTED A - Sigmoid colon polyp, resection (Multiple) CLINICAL INFORMATION 73-year-old male, history of rectal pain SPECIMEN PROCESSING A - Labeled/Fixativ e: Sigmoid colon polyp, formalin. Quantity/Size: Single, 0.8 cm. Tissue Description: Soft, candelaria tissue. Sections/Proces sing: Submitted in toto ??in 1 cassette labeled A1. ??sdy 09/08/2023 2:[address] [facility] GI Biopsy 08/30/2023 11:2 1 AM EST 08/30/2023 11:21 AM EST Brandan Mcgovern MD PATHOLOGY/CYTOLOGY O JOSH [facility] [place] [address] [place] [address] * COLONOSCOPY (08/30/2023 10:57 AM EST) [facility] COLONOSCOPY [facility] Endoscopy Procedure Date: 08/30/2023 10:57 AM ? Patient Name: Korey Montoya ? Date of : 1950 ? Age: 73 ? Order #: [id number] ? Instrument Name: [id number] ? Procedure: ? Colonoscopy Indications: ? Rectal pain Providers: ? Brandan Mcgovern, Tika Fowler, Ty ? Bermudez Referring MD: ?Yoel Artis Medicines: ? Midazolam [...] preparation was evaluated ? using the BBPS ([place] Bowel ? Preparation Scale) with scores of: [...] performed the entire procedure. ? Brandan Mcgovern Brandan Mcgovern, 08/30/2023 11:29:25 AM Number of Addenda: 0 Note Initiated On: 08/30/2023 10:57 AM PROVATION 08/30/2023 10:5 7 AM EST Yoel Artis APRN GENERAL SURGICAL ORD ERABLES PROVATION documented in this encounter Visit Diagnoses Diagnosis Proctalgia fugax Anal spasm Fecal smearing Constipation, unspecified constipation type documented in this encounter Administered Medications Inactive Administered Medications - up to 3 most recent administrations Medication Order MAR Action Action Date Dose Rate Site fentaNYL (pf) (50 mcg/mL) multi-dose injection PRN, Starting on Tue08/30/23 at 1046, Until Tue08/30/23 at 1419, Intra-Operative (Intra-Procedure), Routine Given 08/30/2023 11:02 AM EST 25 mcg Given 08/30/2023 10:59 AM EST 25 mcg Given 08/30/2023 10:57 AM EST 25 mcg midazolam (pf) (Versed) (1 mg/mL) multi-dose injection PRN, Starting on Tue08/30/23 at 1046, Until Tue08/30/23 at 1419, Intra-Operative (Intra-Procedure), Routine Given 08/30/2023 11:06 AM EST 0.5 mg Given 08/30/2023 11:00 AM EST 1 mg Given 08/30/2023 10:57 AM EST 1 mg documented in this encounter Active and Recently Administered Medications Times are shown in EST. PRN Medication Order 08/28/2023 08/29/2023 08/30/2023 fentaNYL (pf) (50 mcg/mL) multi-dose injection (CANCELED) PRN, Starting on Tue08/30/23 at 1046, Until Tue08/30/23 at 1419, Intra-Operative (Intra-Procedure), Routine 1046 (Given - Provid er: Tika Fowler RN)1049 (Given - Provider: Tika Fowler RN)1057 (Given - Provider: Tika Fowler RN)1059 (Given - Provider: Tika Fowler RN)1102 (Given - Provider: Tika Fowler RN) midazolam (pf) (Versed) (1 mg/mL) multi-dose injection (CANCELED) PRN, Starting on Tue08/30/23 at 1046, Until Tue08/30/23 at 1419, Intra-Operative (Intra-Procedure), Routine 1046 (Given - Provid er: Tika Fowler RN)1049 (Given - Provider: Tika Fowler RN)1057 (Given - Provider: Tika Fowler RN)1100 (Given - Provider: Tika Fowler RN)1106 (Given - Provider: Tika Fowler RN) documented in this encounter Care Teams Estate And Trust Tax Principal Relationship Specialty Start Date End Date Yoel Artis, FREDRICK [address] [place] [id number] PCP - General Internal Medicine 11/18/22 07/29/24 documented as of this encounter
--- OUTSIDE RECORDS SUMMARY | 2024-08-22 11:35 | XMS_ITS | Encounter Summary ---
Author Organization [facility] [place] [address] Care Team Providers Care Manufacturing Production Manager Name Role Phone Yoel Artis APRN Primary Care Provider Reason for Referral * Consultation (Routine) - Closed Specialty Diagnoses / Procedures Referred By Theodore muro Referred To Contact Gastroenterology Diagnoses Anal spasm motility- anal spasms Yoel Artis APRN [address] [place] [address] [facility] [address] [place] [phone] Referral ID Status Reason Start Date Expiration Date V isits Requested Visits Authorized [id number] Closed Consult, Test & Treat PCP Updated and/or Approved 11/18/2022 11/18/2023 6 6 Encounter Details Date Type Department Care Team (Late st Contact Info) Description 11/18/2022 Transcribe Orders eDH Incoming Referrals [phone] Yoel Artis APRN [address] [place] [address] Anal spasm Social History Tobacco Use Types Packs/Day Years Used Date Smoking Tobacco: Never Assessed Sex and Gender Information Value Date Recorded Sex Assigned at Male 06/21/2023 9:42 AM EDT Gender Identity Male 06/21/2023 9:42 AM EDT Sexual Orientation Straight 06/21/2023 9: 42 AM EDT documented as of this encounter Plan of Treatment Upcoming Encounters Date Type Department Care Team (Late st Contact Info) Description 10/01/2024 10:00 AM EST Office Visit Cardiology at [address] [phone] Mushtaq Murphy APRN Scheduled Referrals Name Type Priority Associated Diagnoses Order Schedule Referral to Gastroenterology Outpatient Referral Routine Anal spasm Ordered: 11/18/2022 documented as of this encounter Visit Diagnoses Diagnosis Anal spasm documented in this encounter Care Teams Manufacturing Production Manager Relationship Specialty Start Date End Date Yoel Artis APRN [address] [place] [address] PCP - General Internal Medicine 11/18/22 07/29/24 documented as of this encounter
--- OUTSIDE RECORDS SUMMARY | 2024-08-22 11:35 | XMS_ITS | Encounter Summary ---
Author Organization [facility] Address [facility] [place] [address] Care Team Providers Care Manufacturing Applications Engineer Name Role Phone Unknown Primary Care Provider Unavailabl e Encounter Details Date Type Department Care Team (Late st Contact Info) Description 01/13/2019 9:05 PM EDT Ancillary Procedure Radiology Library at [facility] [place] [phone] Sunny Aviles MD [facility] NEUROLOGY [place] [address] Social History Tobacco Use Types Packs/Day Years [...] AM EST Office Visit Cardiology at [address] [place] [phone] Mushtaq Murphy, SUPERVISOR SOLDERING documented as of this encounter Procedures Procedure Name Priority Date/Time Associated Diagnosis Comments FILM LIBRARY STORAGE ONLY CT HEAD AND SPINE Routine 01/13/2019 9:04 PM EDT documented in this encounter Results * Film Library- Storage Only CT Head And Spine (01/13/2019 9:04 PM EDT) Narrative RAD - 01/13/2019 9:04 PM EDT This exam is auto-finalizing. It's purpose is for storage only. Sunny Aviles MD IMG FILM LIBRARY ORDERABLES [place]ER[place] documented in this encounter Visit Diagnoses Not on filedocumented in this encounter Care Teams Manufacturing Applications Engineer Relationship Specialty Start Date End Date Unknown None PCP - General 08/04/10 01/16/19 documented as of this encounter
--- OUTSIDE RECORDS SUMMARY | 2024-08-22 11:35 | XMS_ITS | Encounter Summary ---
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 Medications: Outpatient Medications Prior to Visit Medication Sig Dispense Refill losartan (Cozaar) 25 mg tablet Take 25 mg by mouth daily. simvastatin (Zocor) 20 mg tablet Take 20 mg by mouth every evening. Psyllium Seed-Sucrose (0) Powder Take by mouth. No facility-administered medications prior to visit. Allergies: has No Known Allergies. Past Medical History: has a past medical history of ADHD, HLD (hyperlipidemia), HTN (hypertension),and Tremor. Past Surgical History: has a past surgical history that includes Hand surgery. Family History: family history is not on file. denies family history of colon cancer, IBD, or celiac disease in mother father or other family members Social History: reports that he has quit smoking. His smoking use included cigarettes. He has neverused smokeless tobacco. He reports that he does not currently use alcohol. He reports that he does not currently use drugs. Physical exam: Constitutional: well appearing, no apparent distress Eyes: conjunctiva clear without icterus, pallor, or injection ENT: Nose without external redness or drainage. Mouth with normal dentition; moist mucous membranes CV: No lower extremity peripheral edema or signs of cyanosis Respiratory: Breathing comfortably and speaking in full sentences without evident tachypnea or signs of respiratory distress GI: Abdomen non-distended and non-tender to self-palpation Skin: No visible rashes Psych: Appropriate affect. Intact thought and speech Neuro: Alert and oriented. Moving upper extremities appropriately Questionnaire: No data to display Laboratory studies, imaging, and procedures (in summary of my review of prior records): None Assessment/Plan: Mr. Montoya is a 72 y.o. patient with past medical history significant for tremor, ADHD, HLD, HTN, former tobacco user. 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 Has not had a severe episode in 6 months. Episodes may last 5 minutes. Uses a nitro spray which works very well for him. Has noticed that avoiding constipation, watching diet, getting enough rest, adequate hydration decreases symptom frequency. He takes Metamucil daily and has a bowel movement every day, denies bloody stool and melena. Recommend colonoscopy to investigate for structural cause of symptoms (rule out IBD and hemorrhoids). Also recommend he obtain prostate exam by PCP. Recommend he continue Metamucil daily and avoid constipation with constipation rescue regimen. He can use sitz bath's as needed. Continue nitroglycerin spray since this works well for him and he has to use this very infrequently. We will place referral to GI behavioral health classes since proctalgia fugax is commonly associated with other functional bowel disorders. #Fecal smearing: This resolved 2 weeks ago but was occurring for the past 3 months. We discussed obtaining an anorectal manometry to investigate for pelvic floor dysfunction but patient deferred at this time since symptoms have recently resolved. We discussed that complete symptom relief may not be a fully achievable goal for this chronic condition, but that improvement in quality of life, healthy days at work and family functions, and also general symptom improvement may be more reasonable goals. We discussed that treatments should be tried individually and for periods of at least 4-8 weeks to truly assess symptom response. I did my bestto answer questions to the fullest ability. We discussed that recommended treatments should be tried individually for at least three months at a time to truly assess for a meaningful response, or as long as tolerated, before changing therapy. Recommendations: Diagnostics: -Colonoscopy with IVCS for rectal pain -Anorectal manometry for FI (patient defers) -Recommend prostate exam performed by PCP to evaluate for prostate hypertrophy, tenderness, edema, and nodularity that suggests the presence of chronic prostatitis. Therapeutics: -Continue metamucil daily -Constipation rescue regimen handout -Referral to GI Behavioral Health Classes -Functional bowel disorder handout -Sitz Bath: Sitz bath's are available in most drugstores. They work by improving blood flow and relaxing the muscles around the anus. During the sitz bath you soak the rectal area in warm water for 10 to 15 minutes 2-3 times daily. Can use a portable bowl or a bathtub and sit in 2 to 3 inches of water. Do not add soap, bubble bath, or additives in the water. -Continue nitroglycerin (0.2 percent) as needed RTC in 6 months with motility MANJIT to further consolidate the GI care plan for the patient's local team. Due to the consultative nature of our practice, the patient should continue to work with Yoel Artis APRN as the primary point of contact for urgent issues, medication refills and adjustments as needed for continuity of care purposes in between visits to our center based on the recommendations above. The patient was located in [place] at the time of their visit. TIME SPENT WITH PATIENT Time spent reviewing records prior to this encounter on day of appointment: 2 minutes Time spent during encounter with patient including counselin minutes Time spent documenting encounter after office visit: 7 minutes Yoel Dangelo APRN [facility] [place] [phone] documented in this encounter Plan of Treatment Upcoming Encounters Date Type Department Care Team (Late st Contact Info) Description 10/01/2024 10:00 AM EST Office Visit Cardiology at [address] [place] [address] Mushtaq Murphy APRN Scheduled Orders Name Type Priority Associated Diagnoses Orde r Schedule ENDOSCOPY CASE REQUEST: COLONOSCOPY, DIAGNOSTIC (WRVU 3.26) Procedures Routine Proctalgia fugax Fecal smearing Constipation, unspecified constipation type Ordered: 06/01/2023 Scheduled Referrals Name Type Priority Associated Diagnoses Orde r Schedule Amb Referral to GI Behavioral Health Outpatient Referral Routine Proctalgia fugax Fecal smearing Constipation, unspecified constipation type Ordered: 06/01/2023 documented as of this encounter Visit Diagnoses Diagnosis Proctalgia fugax Anal spasm Fecal smearing Constipation, unspecified constipation type documented in this encounter Care Teams Board Runner Relationship Specialty Start Date End Date Yoel Artis APRN [address] [place] [address] PCP - General Internal Medicine 11/18/22 07/29/24 documented as of this encounter
--- OUTSIDE RECORDS SUMMARY | 2024-08-22 11:35 | XMS_ITS | Encounter Summary ---
[place] [address] Care Team Providers Care Sanitation Worker Cleaning Machinery Name Role Phone Yoel Artis Ute ALCALA Primary Care Provider [phone] Encounter Details Date Type Department Care Team (Late st Contact Info) Description 08/26/2023 [place] [phone] Madelyn Vasquez Social History Tobacco Use Types Packs/Day Years [...] AM EDT documented as of this encounter Miscellaneous Notes * Telephone Encounter - Madelyn Vasquez - 08/26/2023 9:23 AM EST Korey Montoya [id number] Diagnosis/Indication: Rectal pain, fecal smearing Please review patient chart to confirm if previous Endoscopy procedure was performed within system. If yes, take note of Anesthesia type used. If previous procedure found, and with MAC/propofol Anesthesia support was used, schedule this procedure with Anesthesia and skip the Anesthesia portion of questions. If not performed within system, not performed at all, or performed with IVCS, ask Anesthesia questions. SCHEDULING QUESTIONS (ask all patient these questions) Have you ever had a/an Colonoscopy before? Yes: Date [id number] ago [facility] If yes, did you have any problems with the procedure (such as waking up during the procedure, pain or difficulties afterwards, etc.)? No What type of sedation was used: Other: pt unsure Do you take any blood thinners or have you been diagnosed with a bleeding disorder that increases your risk of bleeding with procedures? No Do you have a Pacemaker or Defibrillator device? If yes, send pool message to Cardiology with patient information and date or procedure. No Are you a diabetic? If yes, call PCP/managing provider to discuss use of prep and any questions or concerns related to. No Do you take any iron supplements or vitamins that contain iron? No Do you have a preference regarding the gender of your provider? No ANESTHESIA QUESTIONS (YES to any question, please book with Anesthesia support) Have you ever been diagnosed with Pulmonary Hypertension and/or Congential Heart Disease? No Have you been diagnosed with A-Fib (atrial fibrillation) that is NOT being well controled with medications? No Have you ever had an allergic or adverse reaction to Fentanyl or Versed? No Have you had a problem with sedation or anesthesia? (Waking up during procedure, extreme confusion after, etc.) No Do you have a diagnosis of Obstructive Sleep Apnea that requires the use of a c- pap machine? No Do you use an oxygen tank at home? No Do you use a rescue inhaler more than twice per day? (COPD, severe asthma) No Do you experience breathing problems when you lay flat for a period of time? No Do you take prescription narcotic pain medications, including suboxone or methodone? No SCHEDULING CONFIRMATIONS: Please note any and all parts of your conversation with the patient here. We offer all new patients an opportunity to have an appointment with one of our associate care providers to learn more about your upcoming procedure, ask questions and get answers. These appointmentsare offered via telehealth. Would you be interested in scheduling this appointment? (Only ask if NEW referral patient; skip this question if [facility] GI provider ordered the procedure.) No Is there any other information or concerns you would like to us to share with your care team in relation to your upcoming scheduled procedure? No You must have a responsible alliance party who will drive you to your procedure, stay on campus for the entire duration of your procedure, and drive you home from your procedure. Who will likely be your pile driver for the procedure? Please Verify the height and weight, and adjust if height and/or weight have changed Estimated body mass index is 22.6 kg/m?? as calculated from the following: Height as of 06/01/23: 167.6 cm (5' 6). Weight as of 06/01/23: 63.5 kg (140 lb). Age:73 y.o. documented in this encounter Plan of Treatment Upcoming Encounters Date Type Department Care Team (Late st Contact Info) Description 10/01/2024 10:00 AM EST Office Visit Cardiology at [address] [address] Mushtaq Murphy APRN documented as of this encounter Visit Diagnoses Not on filedocumented in this encounter Care Teams Sanitation Worker Cleaning Machinery Relationship Specialty Start Date End Date Yoel Artis APRN [address] [place] [address] PCP - General Internal Medicine 11/18/22 07/29/24 documented as of this encounter
--- OUTSIDE RECORDS SUMMARY | 2024-08-22 11:35 | XMS_ITS | Encounter Summary ---
Author [place] [address] Care Team Providers Care Net Software Developer Name Role Phone Anibal Mtz MD Primary Care Provider [phone] Encounter Details Date Type Department Care Team (Late st Contact Info) Description 01/18/2019 3:00 PM EDT Interpretation Only Cardiology at [address] [phone] Alberto Powell Jr., MD [address] [place] [address] Dizziness Social History Tobacco Use Types Packs/Day Years [...] 10:00 AM EST Office Visit Cardiology at [address] [address] Mushtaq Murphy APRN documented as of this encounter Procedures Procedure Name Priority Date/Time Associated Diagnosis Comments ECG SCAN 01/13/2019 12:00 AM EDT documented in this encounter Results * SCAN DOC: ECG (01/13/2019 12:00 AM EDT) Narrative 01/13/2019 12:00 AM EDT Ordered by an unspecified provider. Scanning Provider MEDIA MGR SCAN EXT O RDR/RSLT documented in this encounter Visit Diagnoses Diagnosis Dizziness Dizziness and giddiness documented in this encounter Care Teams Net Software Developer Relationship Specialty Start Date End Date Anibal Mtz MD [address] [place] [address] PCP - General Family Medicine 01/17/19 11/17/22 documented as of this encounter
--- OUTSIDE RECORDS SUMMARY | 2024-08-22 11:35 | XMS_ITS | Encounter Summary ---
Author Organization [facility] [place] [address] Care Team Providers Care Acute Care Physical Therapist Name Role Phone Yoel Artis APRN Primary Care Provider Encounter Details Date Type Department Care Team (Late st Contact Info) Description 12/23/2022 8:20 AM EDT - 12/23/2022 11:59 PM EDT Hospital Encounter [facility] [address] [place] [address] Yoel Artis APRN [address] [place] [address] Discharge Disposition: Home Social History Tobacco Use [...] 10:00 AM EST Office Visit Cardiology at [address] [address] Mushtaq Murphy APRN documented as of this encounter Procedures Procedure Name Priority Date/Time Associated Diagnosis Comments PSA SCREEN Routine 12/23/2022 8:43 AM EDT documented in this encounter Results * (ABNORMAL) PSA Screen (12/23/2022 8:43 AM EDT) PSA Screen 4.37(H) 0.00 - 4.00 ng/mL [facility] Comment: PLEASE NOTE: The above reference interval is intended for healthy males with an intact prostate. Values within this reference interval may indicate recurrence in men who have undergone radical prostatectomy. This result was generated using a Tonya Osiel immunoassay. ??Results obtained from other methods or manufacturers cannot be used interchangeably with this method. Blood 12/23/2022 8:43 AM EDT 12/23/2022 5:17 PM EDT Narrative Resulting Agency Comment Spec In Lab Yoel Artis APRN CHEMISTRY ORDERABLES Performing Organization Address City/State/[facility] Co de Phone Number [facility] [place] [address] documented in this encounter Visit Diagnoses Not on filedocumented in this encounter Care Teams Acute Care Physical Therapist Relationship Specialty Start Date End Date Yoel Artis APRN [address] [place] [address] PCP - General Internal Medicine 11/18/22 07/29/24 documented as of this encounter
--- OUTSIDE RECORDS SUMMARY | 2024-08-22 11:35 | XMS_ITS | Encounter Summary ---
Author Organization [facility] [place] [address] Care Team Providers Care Paper Baling Machine Operator Name Role Phone Anibal Mtz MD Primary Care Provider [phone] Encounter Details Date Type Department Care Team (Late st Contact Info) Description 11/08/2022 Interpretation Only [address] [phone] Eve Frost MD [address] [place] [phone] Social History Tobacco Use Types Packs/Day Years [...] 10:00 AM EST Office Visit Cardiology at [address] [address] Mushtaq Murphy APRN documented as of this encounter Procedures Procedure Name Priority Date/Time Associated Diagnosis Comments XR CHEST PA AND LATERAL STAT 11/08/2022 10:34 AM EST documented in this encounter Results * XR Chest PA & Lateral (Generic) (11/08/2022 10:34 AM EST) PT CLASS E RAD ADMITDTTM RAD PT RAD INFO [id number]^C HANDER^SUNEE R RAD EXAM DESC XCXR2^XR CHEST 2 VIEWS^RIS RAD Anatomical Region Laterality Modality Chest N/A Radiographic Farida ging Impressions 11/08/2022 10:37 AM EST No acute cardiopulmonary pathology. Thank you for letting us participate in the care of this patient. ??If you are a health care provider and have any questions regarding this report, please contact the number below. ??For patients who have questions please contact the health respiratory care program director that requested your imaging first. ? Electronically signed by: Alejandro Tenorio MD, [facility] ([phone]), at 11/08/2022 10:37 AM Narrative 11/08/2022 10:37 AM EST EXAMINATION: XR CHEST 2 VIEWS CLINICAL HISTORY: chest pain TECHNIQUE: 2 views of the chest COMPARISON: None FINDINGS: The lungs are well-inflated and clear. The heart is normal in size. No pneumothorax or pleural effusions detected. Procedure Note Alejandro Tenorio MD - 11/08/2022 EXAMINATION: XR CHEST 2 VIEWS CLINICAL HISTORY: chest pain TECHNIQUE: 2 views of the chest COMPARISON: None FINDINGS: The lungs are well-inflated and clear. The heart is normal in size. No pneumothorax or pleural effusions detected. IMPRESSION No acute cardiopulmonary pathology. Thank you for letting us participate in the care of this patient. If youare a health care provider and have any questions regarding this report,please contact the number below. For patients who have questions please contactthe health respiratory care program director that requested your imaging first. Eve Frost MD IMG DX ORDERABLES documented in this encounter Visit Diagnoses Not on filedocumented in this encounter Care Teams Paper Baling Machine Operator Relationship Specialty Start Date End Date Anibal Mtz MD [address] [place] [address] PCP - General Family Medicine 01/17/19 11/17/22 documented as of this encounter
--- OUTSIDE RECORDS SUMMARY | 2024-08-22 11:35 | XMS_ITS | Encounter Summary ---
[place] [address] Care Team Providers Care Car Retarder Operator Name Role Phone Yoel Artis APRN Primary Care Provider [phone] Reason for Referral * Consultation (Routine) - Closed Specialty Diagnoses / Procedures Referred By Theodore muro Referred To Contact Urology Diagnoses Raised prostate specific antigen PERSISTENTLY MILDLY ELEVATED PSA, URINARY FREQ Yoel Artis APRN [address] [place] [address] [facility] [place] [address] Referral ID Status Reason Start Date Expiration Date V isits Requested Visits Authorized [id number] Closed Consult, Test & Treat PCP Updated and/or Approved 07/30/2023 07/29/2024 6 6 Encounter Details Date Type Department Care Team (Late st Contact Info) Description 07/30/2023 Transcribe Orders eDH Incoming Referrals [phone] Yoel Artis APRN [address] [place] [address] Raised prostate specific antigen Social History Tobacco Use Types Packs/Day Years [...] 10:00 AM EST Office Visit Cardiology at [address] [address] Mushtaq Murphy APRN Scheduled Referrals Name Type Priority Associated Diagnoses Orde r Schedule Referral to Urology Outpatient Referral Routine Raised prostate specific antigen Ordered: 07/30/2023 documented as of this encounter Visit Diagnoses Diagnosis Raised prostate specific antigen Elevated prostate specific antigen (PSA) documented in this encounter Care Teams Car Retarder Operator Relationship Specialty Start Date End Date Yoel Artis APRN [address] [place] [address] PCP - General Internal Medicine 11/18/22 07/29/24 documented as of this encounter
--- OUTSIDE RECORDS SUMMARY | 2024-08-22 11:35 | XMS_ITS | Encounter Summary ---
Author Organization [facility] [place] [address] Care Team Providers Care Eyelet Operator Name Role Phone Yoel Artis APRN Primary Care Provider [phone] Reason for Referral * Consultation (Routine) - Closed Specialty Diagnoses / Procedures Referred By Theodore muro Referred To Contact Gastroenterology Diagnoses Anal spasm anal spasm Yoel Artis APRN [address] [place] [address] [facility] [address] [place] [address] Referral ID Status Reason Start Date Expiration Date V isits Requested Visits Authorized [id number] Closed Consult, Test & Treat PCP Updated and/or Approved 05/26/2023 05/25/2024 6 6 Encounter Details Date Type Department Care Team (Late st Contact Info) Description 05/26/2023 Transcribe Orders eDH Incoming Referrals [phone] Yoel Artis APRN [address] [place] [address] Anal spasm Social History Tobacco [...] 10:00 AM EST Office Visit Cardiology at [address] [address] Mushtaq Murphy APRN Scheduled Referrals Name Type Priority Associated Diagnoses Order Schedule Referral to Gastroenterology Outpatient Referral Routine Anal spasm Ordered: 05/26/2023 documented as of this encounter Visit Diagnoses Diagnosis Anal spasm documented in this encounter Care Teams Eyelet Operator Relationship Specialty Start Date End Date Yoel Artis APRN [address] [place] [address] PCP - General Internal Medicine 11/18/22 07/29/24 documented as of this encounter
--- OUTSIDE RECORDS SUMMARY | 2024-08-22 11:35 | XMS_ITS | Encounter Summary ---
Author Organization [facility] Address [facility] [place] [address] Care Team Providers Care Preparing Box Tender Name Role Phone Carola Artis APRN Primary Care Provider [phone] Encounter Details Date Type Department Care Team (Latest Contact Info) Description 11/30/2023 8:00 AM EDT TH Visit (TeleHealth) [place] [address] Carola Dangelo APRN [facility] [place] [address] Proctalgia fugax; Constipation, unspecified constipation type Social History Tobacco [...] AM EDT documented as of this encounter Patient Instructions * Patient Instructions* Carola Dangelo APRN - 11/30/2023 8:00 AM EDT Diagnostics: -Surveillance colonoscopy due 08/2030 for personal history of colon polyps. Follow up with PCP at that time for referral. Therapeutics: -Continue metamucil daily -Constipation rescue regimen handout -Pursue referral to GI Behavioral Health Classes (patient defers) -Functional bowel disorder handout -Sitz Bath: Sitz [...] in the water. -Continue nitroglycerin (0.2 percent) for intermittent proctalgia fugax as needed as prescribed We have not scheduled further follow-up at our center at this time, as the GI issues have improved and can be managed locally following our recommendations. We will refer the patient back to Carola Artis APRN for continued local care management, based on the care plan provided above. If the problem returns or worsens in the future despite following all of these recommendations, please submit a new consult to our center for re-evaluation. -Constipation Rescue regimen Step 1 if 2 days [...] Handout for Patients and Primary Care Providers [facility] Gastrointestinal Motility, Esophageal, and Swallowing Disorders [facility] What are functional bowel disorders? These are the most common type of gastrointestinal disorders in the [facility] The most common functional bowel disorder in the [place] is irritable bowel syndrome (IBS) Irritable bowel [...] what is the impact? 15-20% of general [place] population has IBS or FD or both 2nd most common cause for lost work days (after common cold) in [place] Estimated $30 billion dollar cost to [place] economy per year These disorders can have [...] with immediate onset of symptoms after infection); assistant terminal manager symptoms are expected in most patients however [...] to you primary care provider and/or local vaccinator and share this document. Treatment of functional [...] - this approach benefits most patients OTC (ymfh-moc-vmzhisd) medications can be used for ongoing bothersome symptoms as listed below Your provider (PCP or local Gastroenterology provider or [facility] Gastroenterology provider) may decide to use prescription [...] All-Bran psyllium buds, Metamucil, Konsyl, bulk psyllium (Spinzo and Samesurf stores) Specifically we recommend starting Metamucil or [...] but convincing medical evidence is still lacking Hiud-ali-ltaudvn supplements including probiotics are not typically evaluated [...] to decrease antibiotic-associated diarrhea and antibiotic-related infections Igxl-fiy-Saoegui Medications for Functional Gut Disorders Based on [...] a stool softener that is safe for alf usage (no risk of dependency) andthe dosage [...] (GERD) Often a combination of anti-nausea medications (urfy-vij-ahnjrws or prescription) works better thanhigh doses of [...] for misuse/misinterpretation of this information Patient Resources [place] [employer] https://www.gastro.org/practice-guidance/ox-ucngicj-tdcemp/ topic/xzmmdcidx-lfngi-kbmxaqax-ibs Badgut.org https://badgut.org/information-centre/l-t-huycwiggg-topics/ibs/ AboutIBS.org https://www.aboutibs.org/ Uptodate.com https://www.uptodate.com/contents/tscxjgaxb-npauw-hqmwnbvg-glaqsq-uvw-tenvuu documented in this encounter Progress Notes * Carola Dangelo APRN - 11/30/2023 8:00 AM EDT Images from the original note were not included. [facility] TELEMEDICINE PROGRAM Chief Complaint: Korey Montoya is a 73 y.o. patient of Carola Artis APRN here for follow-up of proctalgia fugax, fecal smearing, constipation. Detailed history: Korey is a 73y.o. male with past medical history significant for tremor, ADHD, HLD, HTN, former tobacco user. Korey was last seen 06/01/2023. 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 Occurs twice [...] the patient should continue to work with Carola Artis APRN as the primary point of contact for urgent issues, medication refills and adjustments as needed for continuity of care purposes in between visits to our center based on the recommendations above. Interval history: Colonoscopy had a polyp otherwise normal Has been doing very well. Very active Has to watch his diet. Has to eat more slowly. Is taking metamucil daily and takes gas-x occasionally Had some minor episodes of rectal pain but this resolved with nitro spray Denies weight loss PCP did perform prostate exam which revealed some prostate enlargement. He was started on Tamsulosin Review of systems: 14-point review of systems reviewed and negative except as above. Medications: Outpatient Medications Prior to Visit Medication Sig Dispense Refill tamsulosin (Flomax) 0.4 mg capsule losartan (Cozaar) 25 mg tablet Take 25 mg by mouth daily. simvastatin (Zocor) 20 mg tablet Take 20 mg by mouth every evening. Psyllium Seed-Sucrose (0) Powder Take by mouth. nitroGLYcerin (NITROLINGUAL) 400 mcg/spray [place], Non-Aerosol 1 spray to anus for proctalgia fugax as needed, not to exceed once daily 12 g 0 No facility-administered medications prior to visit. Allergies: has No Known Allergies. Past Medical History: has a past medical history of ADHD, HLD (hyperlipidemia), HTN (hypertension),and Tremor. Past Surgical History: has a past surgical history that includes Hand surgery and Colonoscopy, Antonieta Pfeiffer ([id number]) (N/A, 08/30/2023). Family History: family history is not on file. denies family history of colon cancer, IBD, or celiac disease in mother father or other family members Social History: reports that he has quit smoking. His smoking use included cigarettes. He has neverused smokeless tobacco. He reports that he does not currently use alcohol. He reports that he does not currently use drugs. No Physical Examination performed during this telemedicine visit Questionnaire: No data to display Laboratory studies, imaging, and procedures (in summary of my review of prior records): 08/30/2023 Colonoscopy: - The examined portion of the ileum was normal. - One 4 mm polyp in the sigmoid colon, removed with a cold snare. Resected and retrieved. - Diverticulosis in the sigmoid colon and in the descending colon. - Internal hemorrhoids. A - Sigmoid colon polyp, resection (Multiple): - Tubular adenoma. Assessment/Plan: Mr. Montoya is a 73 y.o. patient with past medical history significant for tremor, ADHD, HLD, HTN, former tobacco user. Korey was last seen 06/01/2023. Since our last visit, Abraham underwent a colonoscopy that found one tubular adenoma. According to current guidelines he will be due for surveillance colonoscopy 08/2030. According to Korey he underwent a prostate exam performed by his PCP which did reveal some prostate enlargement and was startedon tamsulosin. Korey has been doing very well. He is very active, eating a healthy diet, taking metamucil daily, and occasionally taking gas-x. He has had some minor episodes of proctalgia fugax but these resolvedquickly with nitro spray. He denies weight loss, dyspepsia, and abdominal pain. Recommend he continue his current regimen since this is working well for him. We discussed that complete symptom relief may [...] as tolerated, before changing therapy. Recommendations: Diagnostics: -Surveillance colonoscopy due 08/2030 for personal history of colon polyps. Follow up with PCP at that time for referral. Therapeutics: -Continue metamucil daily -Constipation rescue regimen handout -Pursue referral to GI Behavioral Health Classes (patient defers) -Functional bowel disorder handout -Sitz Bath: Sitz [...] in the water. -Continue nitroglycerin (0.2 percent) for intermittent proctalgia fugax as needed as prescribed We have not scheduled further follow-up at our center at this time, as the GI issues have improved and can be managed locally following our recommendations. We will refer the patient back to Carola Artis APRN for continued local care management, based on the care plan provided above. If the problem returns or worsens in the future despite following all of these recommendations, please submit a new consult to our center for re-evaluation. The patient was located in [place] at the time of their visit. Carola Dangelo APRN [facility] [place] [address] documented in this encounter Miscellaneous Notes * Addendum Note - Carola Dangelo APRN - 11/30/2023 8:00 AM EDTAddended by: CAROLA DANGELO on: 11/30/2023 08:46 AM Modules accepted: Level of Service documented in this encounter Plan of Treatment Upcoming Encounters Date Type Department Care Team (Late st Contact Info) Description 10/01/2024 10:00 AM EST Office Visit Cardiology at [address] [address] Mushtaq Murphy APRN documented as of this encounter Visit Diagnoses Diagnosis Proctalgia fugax Anal spasm Constipation, unspecified constipation type documented in this encounter Care Teams Preparing Box Tender Relationship Specialty Start Date End Date Carola Artis APRN [address] [place] [address] PCP - General Internal Medicine 11/18/22 07/29/24 documented as of this encounter
--- OUTSIDE RECORDS SUMMARY | 2024-08-22 11:35 | XMS_ITS | Encounter Summary ---
Author Organization [facility] [place] [address] Care Team Providers Care Manager Winter Name Role Phone Yoel Artis APRN Primary Care Provider Encounter Details Date Type Department Care Team (Late st Contact Info) Description 03/01/2023 9:30 AM EDT - 03/01/2023 11:59 PM EDT Hospital Encounter [facility] [address] [place] [address] Yoel Artis APRN [address] [place] [address] Discharge Disposition: Home Social History Tobacco Use [...] 10:00 AM EST Office Visit Cardiology at [address] [address] Mushtaq Murphy APRN documented as of this encounter Procedures Procedure Name Priority Date/Time Associated Diagnosis Comments PSA (ULTRASENSITIVE) Routine 03/01/2023 9:38 AM EDT documented in this encounter Results * (ABNORMAL) PSA (Ultrasensitive) (03/01/2023 9:38 AM EDT) Prostate Specific Antigen (Ultrasensitive) 5.09(H) 0.00 - 4.00 ng/mL [facility] Comment: PLEASE NOTE: The above reference interval is intended for healthy males with an intact prostate. Values within this reference interval may indicate recurrence in men who have undergone radical prostatectomy. This result was generated using a Tonya Osiel immunoassay. ??Results obtained from other methods or manufacturers cannot be used interchangeably with this method. Blood 03/01/2023 9:38 AM EDT 03/01/2023 4:03 PM EDT Narrative Resulting Agency Comment Spec In Lab Yoel Artis APRN CHEMISTRY ORDERABLES [facility] [place] [address] documented in this encounter Visit Diagnoses Not on filedocumented in this encounter Care Teams Manager Winter Relationship Specialty Start Date End Date Yoel Artis APRN [address] [place] [address] PCP - General Internal Medicine 11/18/22 07/29/24 documented as of this encounter
--- OUTSIDE RECORDS SUMMARY | 2024-08-22 11:35 | XMS_ITS | Encounter Summary ---
Author Organization [place] [address] Care Team Providers Care Tafe Teacher Name Role Phone Unknown Primary Care Provider Unavailabl e Encounter Details Date Type Department Care Team (Late st Contact Info) Description 12/03/2018 Interpretation Only [address] [phone] Ac Albrecht PA [address] [place] [address] [place] [address] Social History Tobacco Use Types Packs/Day Years [...] 10:00 AM EST Office Visit Cardiology at [address] [address] Mushtaq Murphy APRN documented as of this encounter Procedures Procedure Name Priority Date/Time Associated Diagnosis Comments XR FINGER(S) MIN 2 VIEWS LEFT Routine 12/03/2018 1:27 PM EDT documented in this encounter Results * XR Fingers Min 2 views Left (Generic) (12/03/2018 1:27 PM EDT) Anatomical Region Laterality Modality Hand Left Radiographic Farida ging 12/03/2018 1:27 PM EDT Impressions 12/03/2018 1:38 PM EDT No fracture. Thank you for letting us participate in the care of this patient. For questions regarding this report, please contact the number below. ? Narrative 12/03/2018 1:38 PM EDT EXAMINATION: XR Finger(s) 2 Views Min Lt CLINICAL HISTORY: laceration by circular saw TECHNIQUE: 3 views of the left hand COMPARISON: None FINDINGS: No fracture or dislocation. The alignment is normal. Visualized joint spaces are preserved. Procedure Note Darvin Noyola MD - 12/03/2018 EXAMINATION: XR Finger(s) 2 Views Min Lt CLINICAL HISTORY: laceration by circular saw TECHNIQUE: 3 views of the left hand COMPARISON: None FINDINGS: No fracture or dislocation. The alignment is normal. Visualized jointspaces are preserved. IMPRESSION No fracture. Thank you for letting us participate in the care of this patient. Forquestions regarding this report, please contact the number below. Ac SERRANO IMG DX ORDERABLES documented in this encounter Visit Diagnoses Not on filedocumented in this encounter Care Teams Tafe Teacher Relationship Specialty Start Date End Date Unknown None PCP - General 08/04/10 01/16/19 documented as of this encounter
--- OUTSIDE RECORDS SUMMARY | 2024-08-22 11:35 | XMS_ITS | Encounter Summary ---
Author Organization [facility] Address [facility] [place] [address] Care Team Providers Care Supervisor Paint Department Name Role Phone Yoel Artis Ute ALCALA Primary Care Provider [phone] Reason for Visit * Auth/Cert (Routine) Specialty Diagnoses / Procedures Referred By Theodore t Referred To Contact Diagnoses Anal spasm Fecal smearing Constipation, unspecified Rectal pain, fecal smearing Procedures PRO COLONOSCOPY, DIAGNOSTIC PRO COLONOSCOPY, BIOPSY PRO COLONOSCOPY, REMV LESN, SNARE COLONOSCOPY, DIAGNOSTIC (WRVU 3.26) Brandan Mcgovern MD [facility] [place] [address] [facility] Referral ID Status Reason Start Date Expiration Date Visits Re quested Visits Authorized [id number] 1 1 Encounter Details Date Type Department Care Team (Latest Contact Info) Description 08/30/2023 10:09 AM EST - 08/30/2023 12:19 PM EST Hospital Encounter [place] [address] Brandan Mcgovern MD [facility] [place] [address] Discharge Disposition: Home Social History Tobacco Use [...] occurs, please contact your Doctor. Please call [phone] before 8pm Mon-Fri with problems, questions or concerns. If you call after 8pm or on weekends, call the Hospital at [phone] and ask to speak to the Floor Framer flotation operator and the movie operator will contact that person for you. When should you call for help? Call [phone] anytime you think you may need emergency [...] any problems. Where can you learn more? [facility] View your After Visit Summary and more online at [email or web address] If you would like to provide feedback about your hospital experience, please call the Office of Patient and Family Relations at . If you have received this After Visit Summary in error, please immediately return it in person to the department, or notify the [facility] Privacy Office by calling toll free at between the hours of 8AM and 5PM to arrange for our retrieval of the documents at no cost to you. Content Version: 12.2 ?? [id number] [employer]. Care instructions adapted under license by [facility]. If you have questions about a medical condition or this instruction, always ask your healthcare professional. [employer] disclaims any warranty or liability for your [...] evening. 04/17/2023 08/04/2024 nitroGLYcerin (NITROLINGUAL) 400 mcg/spray [place], Non-AerosolIndications:P roctalgia fugax,Fecal smearing,Constipation, unspecified constipation type [...] 10:00 AM EST Office Visit Cardiology at [address] [address] Mushtaq Murphy, FREDRICK documented as of this encounter Procedures Procedure Name Priority Date/Time Associated Diagnosis Comments SPECIMEN TO PATHOLOGY Routine 08/30/2023 11:23 AM EST SURGICAL PATHOLOGY REPORT Routine 08/30/2023 11:21 AM EST COLONOSCOPY Routine 08/30/2023 10:57 AM EST Colonoscopy, Remv Lesn, Snare ([id number]) 08/30/2023 10:44 AM EST Proctalgia fugax Fecal smearing Constipation, unspecified constipation type documented in this encounter Results * Specimen to Pathology (08/30/2023 11:23 AM EST) AP Specimen 08/30/2023 11:2 3 AM EST 08/30/2023 11:23 AM EST Narrative [facility] - 08/30/2023 11:23 AM EST Specimen requisition ordered. ??Separate Pathology report to follow Brandan Mcgovern MD PATHOLOGY/CYTOLOGY O JOSH Performing Organization Address [facility]/ZIP Co de Phone Number [facility] [place] [phone] * Surgical Pathology Report (08/30/2023 11:21 AM EST) Final Diagnosis [id number] ? Location: 4T; EA12; A The signing pathologist has (i) examined the relevant preparation(s) for the specimen(s) and (ii) rendered or confirmed the diagnosis(es). . ?Surgical Pathology DIAGNOSIS A - Sigmoid colon polyp, resection (Multiple): - ??Tubular adenoma. CR-PX Electronically signed by: ?Blake ORTEGA PhD, Yulia Verified: ??09/08/2023 14:48 ??Pathologist Performed at: ??[facility] Dept. of Pathology, [place] [address] [place] Applier: Fercho Chan MD, FCAP, ??CLIA Certificate: [id number] SPECIMEN(S) SUBMITTED A - Sigmoid colon polyp, resection (Multiple) CLINICAL INFORMATION 73-year-old male, history of rectal pain SPECIMEN PROCESSING A - Labeled/Fixativ e: Sigmoid colon polyp, formalin. Quantity/Size: Single, 0.8 cm. Tissue Description: Soft, candelaria tissue. Sections/Proces sing: Submitted in toto ??in 1 cassette labeled A1. ??sdy 09/08/2023 2:48 PM EST [facility] GI Biopsy 08/30/2023 11:2 1 AM EST 08/30/2023 11:21 AM EST Brandan Mcgovern MD PATHOLOGY/CYTOLOGY O JOSH Performing Organization Address City/[facility]/ZIP Co de Phone Number [facility] [place] [address] [facility] [place] [address] * COLONOSCOPY (08/30/2023 10:57 AM EST) COLONOSCOPY [facility] Endoscopy Procedure Date: 08/30/2023 10:57 AM ? Patient Name: Korey Montoya ? Date of : 1950 ? Age: 73 ? Order #: [id number] ? Instrument Name: [id number] ? Procedure: ? Colonoscopy Indications: ? Rectal pain Providers: ? Brandan Mcgovern, Tika Fowler, Ty ? Aidan Referring MD: ?Yoel Artis [...] preparation was evaluated ? using the BBPS (INFOGRAPHIQS Bowel ? Preparation Scale) with scores of: [...] PROVATION documented in this encounter Visit Diagnoses Not on filedocumented in this encounter Active and Recently Administered Medications Times are shown in EST. PRN Medication Order 08/28/2023 08/29/2023 08/30/2023 fentaNYL (pf) (50 mcg/mL) multi-dose injection (CANCELED) PRN, Starting on Tue08/30/23 at 1046, Until Tue08/30/23 at 1419, Intra-Operative (Intra-Procedure), Routine 1046 (Given - Provid er: Tika Fowler, RENEA)1049 (Given - Provider: Tika Fowler, RN)1057 (Given - Provider: Tika Fowler, RENEA)1059 (Given - Provider: Tika Fowler, RENEA)1102 (Given - Provider: Tika Fowler, RN) midazolam (pf) (Versed) (1 mg/mL) multi-dose injection (CANCELED) PRN, Starting on Tue08/30/23 at 1046, Until Tue08/30/23 at 1419, Intra-Operative (Intra-Procedure), Routine 1046 (Given - Provid er: Tika Fowler RN)1049 (Given - Provider: Tika Fowler RN)1057 (Given - Provider: Tika Fowler RN)1100 (Given - Provider: Tika Fowler RN)1106 (Given - Provider: Tika Fowler RN) documented in this encounter Care Teams Supervisor Paint Department Relationship Specialty Start Date End Date Yoel Artis APRN [address] [place] [id number] PCP - General Internal Medicine 11/18/22 07/29/24 documented as of this encounter
--- OUTSIDE RECORDS SUMMARY | 2024-08-24 11:22 | XMS_ITS | Clinical Summary ---
Author Organization [facility] Address [facility] [place] [address] Care Team Providers Care Library Sales Consultant Name Role Phone Alexia Mtz DECISION SUPPORT MANAGER Primary Care Provider [phone] Allergies No known active allergies Medications Medication [...] Description 07/31/2024 4:45 PM EST Anesthesia Event [place] [address] Venkatesh Mauricio MD 07/31/2024 4:30 PM EST - 07/31/2024 5:30 PM EST Surgery [place] [address] Maldonado Luis MD CARDIAC CATHETERIZATION 07/29/2024 6:32 PM EST - 07/29/2024 11:59 PM EST Hospital Encounter [facility] at [address] [phone] Arvin Becerra MD Discharge Disposition: Home 07/29/2024 12:00 PM EST - 07/29/2024 12:54 PM EST Surgery [place] [address] Vahe Marvin MD CARDIAC CATHETERIZATION 07/29/2024 11:45 AM EST - 08/04/2024 5:00 PM EST Hospital [place] [address] Vahe Marvin MD Dadekian, Gregory A, MD Welch, Terrence D, MD Vinod, Poornima, MD Kostojchin, Anastas, MD Kussaga, Frank M, MD ST elevation myocardial infarction involving left anterior descending (LAD) coronary artery; HFrEF (heart failure with reduced ejection fraction) Discharge Disposition: Home 07/29/2024 Orders [place] [address] Susannah Watts PA 07/29/2024 Interpretation Only [address] [address] Deondre Ferrera MD 07/29/2024 [place] [address] Ivan Hernandez MD 07/29/2024 External [place] [address] 07/28/2024 Interpretation Only [address] [address] Quinten Coffey MD 06/25/2024 [place] [address] Aubrey Cali MD Pyuria from [...] drink = 0.6 oz pur e alcohol) [facility] Utilities Answer Date Recorded In the past 12 months has th e piSociety, gas, oil, or water Patterns threatened to shut off services in your [...] any time in the past 12 m [facility], were you homeless or living in a [facility] (including now)? No 07/30/2024 [facility] Inpatient Questions Answer Date Recorded Does [...] 10:00 AM EST Office Visit Cardiology at [address] [phone] Mushtaq Murphy, FREDRICK Health Maintenance Due Date [...] 9.50 x10(3)/mc L 08/04/2024 6:39 AM [facility] Red Blood Cell 4.28(L) 4.58 - 5.54 x10(6)/mc L 08/04/2024 6:39 AM [facility] Hemoglobin 11.6(L) 13.7 - 16.5 g/dL 08/04/2024 6:39 AM [facility] Hematocrit 34.8(L) 40.5 - 48.5 % 08/04/2024 6:39 AM [facility] Mean Cell Volume 81.3(L) 82.9 - 93.1 fL 08/04/2024 6:39 AM [facility] Mean Cell Hemoglobin 27.1(L) 27.5 - 32.1 pg 08/04/2024 6:39 AM [facility] Mean Cell Hemoglobin Concentration 33.3 32.0 - 35.7 g/dL 08/04/2024 6:39 AM [facility] Platelet 178 145 - 357 x10(3)/mc L 08/04/2024 6:39 AM [facility] Mean Platelet Volume 10.6 7.6 - 12.9 fL 08/04/2024 6:39 AM [facility] RDW Standard Deviation 42.0 36.0 - 45.0 fL 08/04/2024 6:39 AM [facility] RDW coefficient of variation 14.3(H) 11.4 - 13.8 % 08/04/2024 6:39 AM [facility] NRBC% auto 0.0 % 08/04/2024 6:39 AM [facility] NRBC Absolute <0.01 <0.01 x10(3)/mc L 08/04/2024 6:39 AM [facility] Neutrophil % 72.1 % 08/04/2024 6:39 AM [facility] Neutrophil Absolute (ANC) - Automated 5.24 1.70 - 6.10 x10(3)/mc L 08/04/2024 6:39 AM [facility] Lymph % 16.8 % 08/04/2024 6:39 AM [facility] Lymph Absolute 1.22 0.90 - 3.20 x10(3)/mc L 08/04/2024 6:39 AM [facility] Monocyte % 8.5 % 08/04/2024 6:39 AM [facility] Monocyte Absolute 0.62 0.30 - 0.90 x10(3)/mc L 08/04/2024 6:39 AM [facility] Eos % 1.9 % 08/04/2024 6:39 AM [facility] Eos Absolute 0.14 0.00 - 0.40 x10(3)/mc L 08/04/2024 6:39 AM [facility] Basophil % 0.4 % 08/04/2024 6:39 AM [facility] Baso Absolute <0.04 0.00 - 0.10 x10(3)/mc L 08/04/2024 6:39 AM [facility] Immature Gran % 0.3 % 6:39 AM [facility] Immature Gran Absolute <0.04 0.00 - 0.04 x10(3)/mc L 08/04/2024 6:39 AM [facility] Blood VENOUS BLOOD SPECIMEN / Unknown Venipuncture / Unknown 08/04/2024 6:08 AM EST 08/04/2024 6:19 AM EST Bridgette Stauffer MD HEMATOLOGY ORDERABLE S Performing Organization Address City/[facility]/ZIP Co de Phone Number [facility] [place] [address] * Magnesium (08/04/2024 6:08 AM EST) Only the most recent of8 resultswithin the time period is included. Magnesium 0.85 0.69 - 1.07 mMol/L 08/04/2024 7:07 AM [facility] Blood VENOUS BLOOD SPECIMEN / Unknown Venipuncture / Unknown 08/04/2024 6:08 AM EST 08/04/2024 6:19 AM EST Bridgette Stauffer MD CHEMISTRY ORDERABLES Performing Organization Address [facility] Co de Phone Number [facility] [place] [place] [address] * Basic Metabolic Panel (08/04/2024 6:08 AM EST) Only the most recent of7 resultswithin the time period is included. Glucose 93 65 - 199 mg/dL 08/04/2024 7:07 AM [facility] Comment:Glucose Concentratio n >=200 mg/dL plus symptoms is consistent with Diabetes Mellitus. Blood Urea Nitrogen 14 10 - 20 mg/dL 08/04/2024 7:07 AM [facility] Creatinine 1.07 0.80 - 1.50 mg/dL 08/04/2024 7:07 AM [facility] Sodium 138 135 - 145 mMol/L 08/04/2024 7:07 AM [facility] Potassium 4.3 3.5 - 5.0 mMol/L 08/04/2024 7:07 AM [facility] Chloride 107 98 - 107 mMol/L 08/04/2024 7:07 AM [facility] Carbon Dioxide 23 22 - 31 mMol/L 08/04/2024 7:07 AM [facility] Anion Gap 8 5 - 15 mMol/L 08/04/2024 7:07 AM EST [facility] Calcium 8.5 8.5 - 10.5 mg/dL 08/04/2024 7:07 AM EST [facility] Est Glomerular Filtration Rate - Male 74 mL/min/1. 73 m?? 08/04/2024 7:07 AM EST [facility] Comment: This patient's [...] Stauffer MD CHEMISTRY ORDERABLES Performing Organization Address City/[facility]/ZIP Co de Phone Number [facility] [place] [address] * POC, GLUCOSE (08/02/2024 7:47 AM EST) Only the most recent of16 resultswithin the time period is included. [facility] Signature Glucometer, POC 89 65 - 199 mg/dL 08/02/2024 7:47 AM EST [facility] Comment:Supplemental ranges: <140 mg/dL before meals <180 mg/dL all other times of the day. Blood CAPILLARY BLOOD / Unknown 08/02/2024 7:47 AM EST 08/02/2024 7:47 AM EST Arnel Parker MD POINT OF CARE TEST O RDERABLES Performing Organization Address City/[facility]/ZIP Co de Phone Number [facility] [place] [address] * Scan Doc: Telemetry Strips (08/02/2024 7:37 AM EST) Only the most recent of3 resultswithin the time period is included. Narrative 08/02/2024 7:37 AM EST Ordered by an unspecified provider. Scanning Provider MEDIA MGR SCAN EXT O RDR/RSLT * Potassium (08/01/2024 8:39 PM EST) Only the most recent of4 resultswithin the time period is included. Pathologist [facility] Potassium 4.0 3.5 - 5.0 mMol/L 08/01/2024 9:21 PM EST [facility] Blood VENOUS BLOOD SPECIMEN / Unknown Venipuncture / Unknown 08/01/2024 8:39 PM EST 08/01/2024 8:51 PM EST Jay Silverio MD CHEMISTRY ORDERABL ES [facility] [place] [address] * (ABNORMAL) Cooximetry, POC (08/01/2024 10:45 AM EST) Only the most recent of2 resultswithin the time period is included. pO2, Coox 32 mmHg 08/01/2024 10:48 AM EST [facility] Hemoglobin, Coox 12.9(L) 13.7 - 16.5 g/dL 08/01/2024 10:48 AM EST [facility] Oxyhemoglobin, Coox 66.7 % 08/01/2024 10:48 AM EST [facility] Carboxyhemoglo bin, Coox 1.1 % 08/01/2024 10:48 AM EST [facility] Comment: Nonsmokers: 0.5-1.5% COHB ?? Smokers: Variable ??but usually less than 10% ?? Toxic: 20-30% COHB ?? Lethal: Greater than 60% COHB Methemoglobin, Coox 0.3 <=1.5 % 08/01/2024 10:48 AM EST [facility] Blood (Mixed Venous) 08/01/2024 10:45 AM EST 08/01/2024 10:48 AM EST Arnel Parker MD POINT OF CARE TEST O RDERABLES Performing Organization Address [facility]/State/[facility] Co de Phone Number [facility] [place] [address] * CARDIAC CATHETERIZATION (07/31/2024 5:53 PM EST) Only the most recent of2 resultswithin the time period is included. Anatomical Region Laterality Modality Other Narrative 08/01/2024 12:37 PM EST ?[facility] ? Cardiac Catheterization/Intervention Report ? Patient Name: MontoyaKorey. ? Procedure Date: 07/31/2024 ? A #: [id number] ? Primary Physician: Janelle, Maldonado Muro ? Case #: [id number] ? File Name: [id number] ? Catheterization Order Number: [id number] ? [facility] ?Final [facility] ? Final Report [place], [place] ? Patient Name: ? Korey Montoya ?ID#: ?[id number] ? : ?1950 ? Procedure Date: ? [...] ? Comments: ?Impella removed from the right SOCIAL ORGANIZATION PROFESSOR with deployment of Perclose and ?Angioseal. ??Good [...] Procedure Note Maldonado Luis MD - 08/01/2024 [facility] Cardiac Catheterization/Intervention Report Patient Name: Korey Montoya Procedure Date: 07/31/2024 A #: [id number] Primary Physician: Maldonado Luis Case #: [id number] File Name: [id number] Catheterization Order Number: [id number] [facility] FinalReport [place], [place] Patient Name: Korey Montoya ID#:[id number] :1950 Procedure Date: July 31, 2024 Case [...] was designated as ASA Class IV. The [facility] clinical frailtyscale is 4: Vulnerable. Diagnostic [...] procedures. Comments: Impella removed from the right SOCIAL ORGANIZATION PROFESSOR with deployment of Perclose and Angioseal. Good [...] 7.35 - 7.45 07/31/2024 8:30 AM [facility] PCO2, Arterial 29(L) 35 - 45 mmHg 07/31/2024 8:30 AM [facility] PO2, Arterial 71(L) 85 - 104 mmHg 07/31/2024 8:30 AM [facility] Bicarbonate, Arterial 20.6 20.0 - 26.0 mmol/L 07/31/2024 8:30 AM [facility] Base Excess, Arterial -3.0 -3.0 - 3.0 mmol/L 07/31/2024 8:30 AM [facility] Hemoglobin, Arterial 12.3(L) 13.7 - 16.5 g/dL 07/31/2024 8:30 AM [facility] Oxyhemoglobin, Arterial 94.4 94.0 - 97.0 % 07/31/2024 8:30 AM [facility] Carboxyhemoglobin , Arterial 0.7 % 07/31/2024 8:30 AM [facility] Comment: Nonsmokers: 0.5-1.5% COHB ?? Smokers: Variable ??but usually less than 10% ?? Toxic: 20-30% COHB ?? Lethal: Greater than 60% COHB Methemoglobin, Arterial 0.3 <=1.5 % 07/31/2024 8:30 AM [facility] Sodium, Arterial 138 135 - 145 mmol/L 07/31/2024 8:30 AM [facility] Potassium, Arterial 3.5 3.5 - 5.0 mmol/L 07/31/2024 8:30 AM [facility] Chloride, Arterial 109(H) 98 - 107 mmol/L 07/31/2024 8:30 AM [facility] Lactate, Arterial 0.8 0.5 - 2.2 mmol/L 07/31/2024 8:30 AM [facility] Fraction of Inspired Oxygen 21 % 07/31/2024 8:30 AM [facility] PF Ratio 338 Ratio 07/31/2024 8:30 AM [facility] Comment:PF ratio calculated using the non-temperature corrected pO2 result. IONIZED CALCIUM, ARTERIAL 1.08(L) 1.15 - 1.33 mmol/L 07/31/2024 8:30 AM EST [facility] Glucose, Arterial 86 65 - 199 mg/dL 07/31/2024 8:30 AM EST [facility] Comment:Glucose Concentratio n >=200 mg/dL plus symptoms is consistent with Diabetes Mellitus. Blood ARTERIAL BLOOD / Unknown 07/31/2024 8:29 AM EST 07/31/2024 8:30 AM EST Arnel Parker MD POINT OF CARE TEST O RDERABLES [facility] [place] [address] * (ABNORMAL) Hepatic Function Panel (07/31/2024 1:08 AM EST) Albumin 3.1(L) 3.2 - 5.2 g/dL 07/31/2024 1:46 AM EST [facility] Aspartate Aminotransferase 192(H) <=39 unit/L 07/31/2024 1:46 AM [facility] Alanine Aminotransferase 59(H) 0 - 55 unit/L 07/31/2024 1:46 AM [facility] Alkaline Phosphatase 46 40 - 130 unit/L 07/31/2024 1:46 AM [facility] Bilirubin, Total 0.4 <=1.3 mg/dL 07/31/2024 1:46 AM [facility] Bilirubin, Direct <0.2 0.0 - 0.3 mg/dL 07/31/2024 1:46 AM EST [facility] Protein, Total 5.0(L) 6.1 - 8.0 g/dL 07/31/2024 1:46 AM [facility] Blood VENOUS BLOOD SPECIMEN / Unknown Venipuncture / Unknown 07/31/2024 1:08 AM EST 07/31/2024 1:18 AM EST Arnel Parker MD CHEMISTRY ORDERABLES Performing Organization Address City/[facility]/ZIP Co de Phone Number [facility] [place] [address] * (ABNORMAL) Phosphorus (07/30/2024 3:08 PM EST) Only the most recent of3 resultswithin the time period is included. Phosphorus 2.1(L) 2.5 - 4.5 mg/dL 07/30/2024 3:58 PM EST [facility] Blood VENOUS BLOOD SPECIMEN / Unknown Venipuncture / Unknown 07/30/2024 3:08 PM EST 07/30/2024 3:12 PM EST Jay Silverio MD CHEMISTRY ORDERABL ES Performing Organization Address City/[facility]/ZIP Co de Phone Number [facility] [place] [address] * ECHO LMTD W CONTRAST W LMTD SPEC DOPP COLOR DOPP (07/30/2024 11:42 AM EST) Anatomical Region Laterality Modality Cardiac Other 07/30/2024 10:2 2 AM EST Narrative 07/30/2024 12:34 PM EST [address] [place] [address] ? Echocardiogram Report Name: KOREY MONTOYA ? Study Date: 07/30/2024 10:22 AMBP: 124/66 mmHg : 1950 ? Height: 168 cm ? Account: [id number] Age: 74 yrs ? Weight: 65 kg [...] Compared to the overnight study by the telephone service adviser fellow the impella position is stable. 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 Procedure Limited - 72007. Image enhancement Definity was used for both [...] Note Kathleen Banda MD - 07/30/2024 [address] [place] [address] Echocardiogram Report Name: KOREY MONTOYA Study Date: 410:22 AMBP: 124/66 mmHg : 1950 Height: 168 cm Account: [id number] Age: 74 yrs Weight: 65 kg Gender: [...] Compared to the overnight study by the telephone service adviser fellow the impella positionis stable. The global left ventricular systolic function has improvedpredominantly via recruitment outside the LAD territory which remains akinetic. Procedure Limited - 14854. Image enhancement Definity was used for both [...] 8,651(H) <=22 ng/L 07/30/2024 9:06 AM EST [facility] Comment: This patient's [...] troponin value can be found in the [facility] Test Catalog Troponin - [email or web address] Reference: Fourth Howell Definition of Myocardial Infarction. Journal of the [place] College [employer] 2018;72:8749-9210 Blood VENOUS BLOOD SPECIMEN / Unknown Venipuncture / Unknown 07/30/2024 8:09 AM EST 07/30/2024 8:26 AM EST Jay Silverio MD CHEMISTRY ORDERABL ES Performing Organization Address City/State/[facility] Co de Phone Number [facility] [place] [address] * Echocardiogram Transthoracic (07/30/2024 1:41 AM EST) Anatomical Region Laterality Modality Cardiac Other 07/30/2024 1:41 AM EST Narrative 07/30/2024 8:23 AM EST [address] [place] [address] ? Echocardiogram Report Name: KOREY MONTOYA ? Study Date: 07/30/2024 01:41 AM : 1950 ? Height: 168 cm Age: 74 yrs ? Weight: 5.9 kg Gender: Male ?BSA: 0.63 m2 Performed By: Beatris Ching MD Reason For Study: STEMI, VT History: ASCVD, HTN, HLD Interpreting Fellow: Beatris Ching. Interpretation Summary This is a limited study performed by a fellow telephone service adviser to evaluate for cardiogenic shock with impella [...] study available for comparison. Procedure Limited - 98869. Suboptimal quality. There is sinus bradycardia. Left [...] Note Kathleen Banda MD - 07/30/2024 1 [place] [address] Echocardiogram Report Name: KOREY MONTOYA Study Date: 07/30/2024 01:41AM : 1950 Height: 168 cm Age: 74 yrs Weight: 5.9 kg Gender: Male BSA: 0.63 m2 Performed By: Beatris Ching MD Reason For Study: STEMI, VT History: ASCVD, HTN, HLD Interpreting Fellow: Beatris Ching. Interpretation Summary This is a limited study performed by a fellow telephone service adviser to evaluate forcardiogenic shock with impella in. [...] study available for comparison. Procedure Limited - 05217. Suboptimal quality. There is sinus bradycardia. Left [...] * ABORH RECHECK (07/29/2024 6:43 PM EST) [facility] ABORH Recheck AB POSITIVE 07/29/2024 10:13 PM EST [facility] Blood VENOUS BLOOD SPECIMEN / Unknown Venipuncture / Unknown 07/29/2024 6:43 PM EST 07/29/2024 7:15 PM EST Jay Silverio MD BLOOD BANK LAB ORD ERABLES Performing Organization Address City/[facility]/ZIP Co de Phone Number [facility] [place] [address] * Type and screen ([facility]OGN/MAGALIE) (07/29/2024 5:56 PM EST) [facility] ABORH Type AB POSITIVE 07/29/2024 9:44 PM EST [facility] PATIENT HISTORY Not Found 07/29/2024 9:44 PM EST [facility] Expires at [id number] on: 08/01/2024 07/29/2024 9:44 PM EST [facility] ANTIBODY SCREEN AUTOMATED Negative 07/29/2024 9:44 PM EST [facility] T&S only valid at [facility] 07/29/2024 9:44 PM EST [facility] Blood VENOUS BLOOD SPECIMEN / Unknown Venipuncture / Unknown 07/29/2024 5:56 PM EST 07/29/2024 6:07 PM EST Narrative [facility] - 07/29/2024 9:44 PM EST This Type and Screen result is only valid at the [facility] Jay Silverio MD BLOOD BANK LAB ORD ERABLES Performing Organization Address City/[facility]/ZIP Co de Phone Number [facility] [place] [address] * EKG 12 Lead (07/29/2024 4:21 PM EST) Only the most recent of2 resultswithin the time period is included. Pathologist [facility] Ventricular rate 72 BPM MUSE SYSTEM Atrial Rate 72 BPM MUSE SYSTEM P-R Interval 168 ms MUSE SYSTEM QRS Duration 82 ms MUSE SYSTEM Q-T Interval 392 ms MUSE SYSTEM QTC Calculated (Bezet) 429 ms MUSE SYSTEM Calculated P [place] 71 degrees MUSE SYSTEM Calculated R [place] 77 degrees MUSE SYSTEM Calculated T [place] 28 degrees MUSE SYSTEM INTERPRETATION Sinus rhythm with Premature supraventricular complexes and Occasional Premature ventricular complexes Low voltage QRS 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) Lateral injury pattern ACUTE [place] / STEMI Abnormal ECG When compared with ECG of 29-JUL-2024 13:43, (unconfirmed) Serial changes of evolving Anteroseptal infarct Present Confirmed by MD Marcus, Roverto (1963) on 07/31/2024 5:30:06 AM MUSE SYSTEM 07/29/2024 4:21 PM EST 07/31/2024 5:30 AM EST Jay Silverio MD ECG ORDERABLES Performing Organization Address City/[facility]/ZIP Co de Phone Number MUSE SYSTEM * Blood culture (07/29/2024 4:08 PM EST) Only the most recent of2 resultswithin the time period is included. Blood Culture No growth at 120 hours 08/03/2024 5:01 PM EST [facility] Blood VENOUS BLOOD SPECIMEN / Unknown Venipuncture / Unknown 07/29/2024 4:08 PM EST 07/29/2024 4:15 PM EST Jay Silverio MD MICROBIOLOGY - BLO OD ORDERABLES Performing Organization Address City/[facility] Co de Phone Number [facility] [place] [address] * XR Chest One View (07/29/2024 2:30 PM EST) Only the most recent of3 resultswithin the time period is included. WORKSTATION ID [id number] DH RAD Anatomical Region Laterality Modality Chest [...] who have questions please contact the health caregiver assisted living that requested your imaging first. ? Electronically signed by: Chris Candelaria MD, [facility] ([phone]), at 07/29/2024 3:21 PM Narrative 07/29/2024 3:21 [...] patients who have questions please contactthe health caregiver assisted living that requested your imaging first. Electronically signed by: Chris Candelaria MD, [facility]([phone]), at 07/29/2024 3:21 PM Vahe Marvin MD IMG DX ORDERABLES * TSH [place] (07/29/2024 2:03 PM EST) Thyroid Stimulating Hormone 0.70 0.27 - 4.20 mcIU/mL 07/29/2024 2:52 PM EST [facility] Blood VENOUS BLOOD SPECIMEN / Unknown Venipuncture / Unknown 07/29/2024 2:03 PM EST 07/29/2024 2:14 PM EST Vahe Marvin MD CHEMISTRY ORDERABLES [facility] [place] [address] * CRP, acute inflammation (07/29/2024 2:03 PM EST) C-Reactive Protein <3.0 <=4.9 mg/L 07/29/2024 2:52 PM EST [facility] Blood VENOUS BLOOD SPECIMEN / Unknown Venipuncture / Unknown 07/29/2024 2:03 PM EST 07/29/2024 2:14 PM EST Vahe Marvin MD CHEMISTRY ORDERABLES Performing Organization Address City/[facility]/ZIP Co de Phone Number [facility] [place] [address] * (ABNORMAL) APTT (07/29/2024 2:03 PM EST) Partial Thromboplastin Time >160(HHH) 25 - 37 sec 07/29/2024 2:56 PM EST [facility] Blood VENOUS BLOOD SPECIMEN / Unknown Venipuncture / Unknown 07/29/2024 2:03 PM EST 07/29/2024 2:13 PM EST Vahe Marvin MD HEMATOLOGY ORDERABLE S [facility] [place] [address] * (ABNORMAL) Prothrombin Time (07/29/2024 2:03 PM EST) Pathologist [facility] Prothrombin Time 14.2(H) 9.4 - 12.5 sec 07/29/2024 2:56 PM EST [facility] International Normalization Ratio 1.3 <=4.9 07/29/2024 2:56 PM EST [facility] Comment: An INR [...] EST Vahe Marvin MD HEMATOLOGY ORDERABLE S [facility] [place] [address] * Hemoglobin A1c (07/29/2024 2:03 PM EST) [facility] Hemoglobin A1c 5.3 4.3 - 5.6 % 07/29/2024 2:41 PM EST [facility] Comment: Per ADA [...] red blood cell turnover may not be customer service representative of glycemic control. Reference Interval: 4.3 - 5.6% 5.7 - 6.4%: Consistent with prediabetes >=6.5%: Consistent with diagnosis of diabetes mellitus Estimated Average Glucose 07/29/2024 2:41 PM EST [facility] Comment:Estimated Average Gl ucose not appropriate for patients over 70 years of age. Blood VENOUS BLOOD SPECIMEN / Unknown Venipuncture / Unknown 07/29/2024 2:03 PM EST 07/29/2024 2:14 PM EST [facility] LABORATORY - 07/29/2024 2:41 PM EST Estimated average glucose (eAG) is calculated from the equation described in: Quinten DM, Rikki J, Reno R, et al. ??Translating the A1C assay into estimated average glucose values. ??Diabetes Care 2008:31(8):7475-9487. Additional resources are available on the ADA website (diabetes.org). Vahe Marvin MD CHEMISTRY ORDERABLES [facility] [place] [address] * Lipid Panel (Reflex Direct LDL) (07/29/2024 2:03 PM EST) Pathologist [facility] Cholesterol, Total 133 mg/dL 07/29/2024 2:52 PM [facility] Comment: Desirable: < 200 mg/dL Borderline High: 200 - 239 mg/dL High: > or = 240 mg/dL Triglyceride 45 mg/dL 07/29/2024 2:52 PM [facility] Comment: Normal: <150 mg/dL Borderline High: 150-199 mg/dL High: 200-499 mg/dL Very High: > or =500 mg/dL HDL Cholesterol 58 mg/dL 4 2:52 PM [facility] Comment:Males: High Risk: <4 0 mg/dL LDL Cholesterol 64 mg/dL 4 2:52 PM [facility] Comment: Desirable: <100 mg/dL Above Desirable: 100-129 mg/dL Borderline High: 130-159 mg/dL High: 160-189 mg/dL Very High: > or =190 mg/dL Note: LDL calculation updated to the NIH LDL formula as of 04/15/2024 Non-HDL Cholesterol 75 mg/dL 07/29/2024 2:52 PM EST [facility] Comment: Desirable: <130 mg/dL Above Desirable: 130-159 mg/dL Borderline High: 160-189 mg/dL High: 190-219 mg/dL Very High: > or = 220 mg/dL Blood VENOUS BLOOD SPECIMEN / Unknown Venipuncture / Unknown 07/29/2024 2:03 PM EST 07/29/2024 2:14 PM EST [facility] LABORATORY - 07/29/2024 2:52 PM EST It [...] ACC/AHA Guidelines (most recently Rolf et al. [facility] 06/15/22): * For individuals with atherosclerotic cardiovascular [...] artery disease) Vahe Marvin MD CHEMISTRY ORDERABLES [facility] [place] [address] * (ABNORMAL) Comprehensive metabolic panel (07/29/2024 2:03 PM EST) Glucose 243(H) 65 - 199 mg/dL 07/29/2024 3:11 PM EST [facility] Comment:Glucose Concentratio n >=200 mg/dL plus symptoms is consistent with Diabetes Mellitus. Blood Urea Nitrogen 13 10 - 20 mg/dL 07/29/2024 3:11 PM EST [facility] Creatinine 0.88 0.80 - 1.50 mg/dL 07/29/2024 3:11 PM EST [facility] Sodium 138 135 - 145 mMol/L 07/29/2024 3:11 PM EST [facility] Potassium 3.6 3.5 - 5.0 mMol/L 07/29/2024 3:11 PM EST [facility] Chloride 104 98 - 107 mMol/L 07/29/2024 3:11 PM EST [facility] Carbon Dioxide 19(L) 22 - 31 mMol/L 07/29/2024 3:11 PM EST [facility] Anion Gap 15 5 - 15 mMol/L 07/29/2024 3:11 PM EST [facility] Calcium 8.0(L) 8.5 - 10.5 mg/dL 07/29/2024 3:11 PM [facility] Protein, Total 6.0(L) 6.1 - 8.0 g/dL 07/29/2024 3:11 PM [facility] Albumin 3.6 3.2 - 5.2 g/dL 07/29/2024 3:11 PM [facility] Aspartate Aminotransferase 07/29/2024 3:11 PM [facility] Comment:Unable to report due to hemolysis. Alanine Aminotransferase 56(H) 0 - 55 unit/L 07/29/2024 3:11 PM [facility] Alkaline Phosphatase 58 40 - 130 unit/L 07/29/2024 3:11 PM [facility] Bilirubin, Total 0.5 <=1.3 mg/dL 07/29/2024 3:11 PM [facility] Est Glomerular Filtration Rate - Male 91 mL/min/1. 73 m?? 07/29/2024 3:11 PM [facility] Comment: This patient's estimated GFR [...] PM EST Vahe Marvin MD CHEMISTRY ORDERABLES [facility] [place] [address] * (ABNORMAL) Blood Gas, Venous POC (07/29/2024 2:01 PM EST) pH, Venous 7.30(L) 7.32 - 7.42 07/29/2024 2:02 PM [facility] PCO2, Venous 42 38 - 58 mmHg 07/29/2024 2:02 PM [facility] PO2, Venous 39 16 - 65 mmHg 07/29/2024 2:02 PM [facility] Bicarbonate, Venous 20.1(L) 22 - 31 mmol/L 07/29/2024 2:02 PM [facility] Base Excess, Venous -6.4(L) 1.9 - 4.5 mmol/L 07/29/2024 2:02 PM [facility] Hemoglobin, Venous 14.2 13.7 - 16.5 g/dL 07/29/2024 2:02 PM [facility] Oxyhemoglobin, Venous 69.3 % 07/29/2024 2:02 PM [facility] Carboxyhemoglobin , Venous 0.8 % 07/29/2024 2:02 PM [facility] Comment: Nonsmokers: 0.5-1.5% COHB ?? Smokers: Variable ??but usually less than 10% ?? Toxic: 20-30% COHB ?? Lethal: Greater than 60% COHB Methemoglobin, Venous 0.3 <=1.5 % 07/29/2024 2:02 PM [facility] Sodium, Venous 137 135 - 145 mmol/L 07/29/2024 2:02 PM [facility] Potassium, Venous 3.6 3.5 - 5.0 mmol/L 07/29/2024 2:02 PM [facility] Chloride, Venous 103 98 - 107 mmol/L 07/29/2024 2:02 PM [facility] Glucose, Venous 229(H) 65 - 199 mg/dL 07/29/2024 2:02 PM [facility] Comment:Glucose Concentratio n >=200 mg/dL plus symptoms is consistent with Diabetes Mellitus. Lactate, Venous 3.1(H) 0.5 - 2.2 mmol/L 07/29/2024 2:02 PM [facility] Ionized Calcium, Venous 1.11(L) 1.15 - 1.33 mmol/L 07/29/2024 2:02 PM [facility] Blood VENOUS BLOOD SPECIMEN / Unknown 07/29/2024 2:01 PM EST 07/29/2024 2:02 PM EST Vahe Marvin MD POINT OF CARE TEST O RDERABLES [facility] [place] [address] * (ABNORMAL) BLOOD GAS, POC (07/29/2024 12:46 PM EST) Only the most recent of2 resultswithin the time period is included. Sodium, POC 139 135 - 145 mmol/L 07/30/2024 7:30 AM [facility] Potassium, POC 3.4(L) 3.5 - 5.0 mmol/L 07/30/2024 7:30 AM [facility] pH, POC 7.33(L) 7.35 - 7.45 07/30/2024 7:30 AM [facility] Ionized Calcium, POC 1.13(L) 1.15 - 1.33 mmol/L 07/30/2024 7:30 AM [facility] pCO2, POC 38 35 - 45 mmHg 07/30/2024 7:30 AM [facility] pO2, POC 94 85 - 104 mmHg 07/30/2024 7:30 AM [facility] Base Excess, POC -6.0(L) -3.0 - 3.0 mmol/L 07/30/2024 7:30 AM [facility] Hematocrit, POC 39.0(L) 40.5 - 48.5 %PCV 07/30/2024 7:30 AM [facility] Hemoglobin, POC 13.3(L) 13.7 - 16.5 g/dL 07/30/2024 7:30 AM EST [facility] Comment:The calculation of h emoglobin from hematocrit assumes a normal MCHC. Bicarbonate, POC 19.8(L) 20.0 - 26.0 mmol/L 07/30/2024 7:30 AM EST [facility] Carbon Dioxide, POC 21(L) 22 - 31 mmol/L 07/30/2024 7:30 AM EST [facility] Blood VENOUS BLOOD SPECIMEN / Unknown 07/29/2024 12:46 PM EST 07/30/2024 7:30 AM EST Vahe Marvin MD POINT OF CARE TEST O RDERABLES Performing Organization Address [facility]/[place] [address] * External Cardiology Result (07/29/2024 10:13 AM EST) Anatomical Region Laterality Modality Other Historical Provider EXTERNAL CARDIOLO GY RESULT * Urine culture (06/25/2024 11:55 AM EDT) Urine Culture No growth 06/26/2024 12:22 PM EDT [facility] Urine URINE SPECIMEN OBTAINED BY CLEAN CATCH PROCEDURE / Unknown 06/25/2024 11:55 AM EDT 06/25/2024 5:18 PM EDT Aubrey Cali MD MICROBIOLOGY - GENER AL ORDERABLES Performing Organization Address City/[facility]/ZIP Co de Phone Number [facility] [place] [address] * COLONOSCOPY (08/30/2023 10:57 AM EST) COLONOSCOPY [facility] Endoscopy Procedure Date: 08/30/2023 10:57 AM ? Patient Name: Korey Montoya ? Date of : 1950 ? Age: 73 ? Order #: [id number] ? Instrument Name: [id number] ? Procedure: ? Colonoscopy Indications: ? Rectal [...] preparation was evaluated ? using the BBPS ([place] Bowel ? 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
--- OUTSIDE RECORDS SUMMARY | 2024-08-24 11:23 | XMS_ITS | Encounter Summary ---
Author Organization [facility] Address [facility] [place] [address] Care Team Providers Care Mill Representative Name Role Phone AvisAlexia shell Shun ALCALA Primary Care Provider [phone] Reason for Referral * Consultation (Routine) - Authorized Specialty Diagnoses / Procedures Referred By Contac t Referred To Contact Cardiology Diagnoses HFrEF (heart failure with reduced ejection fraction) [facility] S/P D/C acute HFrEF Alex Small MD [facility] [place] [address] Mushtaq Murphy APRN [facility] [address] Referral ID Status Reason Start Date Expiration Date Visits Requested Visits Authorized [id number] Authorized Consult, Test & Treat 08/04/2024 08/04/2025 1 1 * Consultation (Routine) - Authorized Specialty Diagnoses / Procedures Referred By Contac t Referred To Contact Cardiology Diagnoses ST elevation myocardial infarction involving left anterior descending (LAD) coronary artery Yrn Ward MD [facility] [place] [address] Cardiac Rehab, [address] [place] [address] Referral ID Status Reason Start Date Expiration Date Visits Requested Visits Authorized [id number] Authorized Consult, Test & Treat 08/04/2024 01/31/2025 36 36 Reason for Visit * Auth/Cert (Routine) Specialty Diagnoses / Procedures Referred By Contac t Referred To Contact Diagnoses STEMI (ST elevation myocardial infarction) STEMI Procedures ER IPI Vahe Marvin MD [facility] [address] [facility] Referral ID Status Reason Start Date Expiration Date Visits Re quested Visits Authorized [id number] 1 1 Encounter Details Date Type Department Care Team (Latest Contact Info) Description 07/29/2024 11:45 AM EST - 08/04/2024 5:00 PM EST Hospital Encounter Cardiovascular [place] [phone] Vahe Marvin MD [facility] [address] Jay Silverio MD [facility] [place] [address] Krystal Parker MD [facility] [place] [address] Bridgette Stauffer MD [facility] [place] [address] Yrn Ward MD [facility] [place] [address] Alex Small MD [facility] [address] ST elevation myocardial infarction involving left anterior descending (LAD) coronary artery; HFrEF (heart failure with reduced ejection fraction) Discharge Disposition: Home Social History Tobacco Use Types Packs/Day Years Used Date Smoking Tobacco: Former Cigarettes Smokeless Tobacco: Never Alcohol Use Standard Drinks/Week Comments Not Currently 0 (1 standard drink = 0.6 oz pur e alcohol) [facility] Utilities Answer Date Recorded In the past [...] any time in the past 12 m [facility], were you homeless or living in a fci (including now)? No 07/30/2024 IPV Inpatient Questions [...] Korey Montoya Patient Age: 74 y.o. Language: Cymraes Race: White Ethnicity: Not nor Admit date: [...] please contact your inpatient physician through the [facility] Flange Turner . Issues afterhours and on weekends will [...] EKG. Patient transferred via air ambulance to [facility] on 07/29 for LHC and LOW to [...] EKG. Was transferred via air ambulance to [facility] for further management and LHC demonstrated 100% occlusion. No significant RCA, LMCA, or LCX disease. LOW placed in LAD with some residual distal disease meriting placement of overlapping distal stent. TTE showed apical akinesis and inferior hypokinesis with EF 20%. RHC showed elevated filling pressures. Impella placed and P-level 6 at time of transfer to [facility]. CI initially 1.97, improved to [...] the next year. Access was via right WAYS OPERATOR and this sitewas clean, dry and intact [...] for Chest pain. Replaces: nitroGLYcerin 400 mcg/spray Curtiss, Non-Aerosol 0.4 mg Quantity: 90 tablet Refills: [...] Refills: 0 STOPPED Medications nitroGLYcerin 400 mcg/spray Curtiss, Non-Aerosol Commonly known as: NITROLINGUAL Replaced by: [...] of one year. After this time, your foiling machine adjuster will determine if you need to continue [...] away. Stay on the phone. The emergency network control operators supervisor will tell you what to do. Nitroglycerin [...] appointments: During 8am-5pm Tuesday through Tuesday call [phone] to speak with a nurse in the cardiology clinic All other times call [phone] and ask to speak to the cement mason apprentice messenger floorperson. Follow up Appointments: PCP Alexia Mtz, PROJECT MANAGER PROCESS DEVELOPMENT [phone]. Please call to establish a follow up appointment within 1-2 weeks of discharge. Cardiology. Referral to heart failure has been sent. General Instructions None Future Appointments and Orders Future Orders Complete By Expires Referral to Cardiac Rehab [DFT696 Custom] As directed Process Instructions: If no progress note charted, please enter Clinical details in comments. Scheduling Instructions: Questions: My question or request is: STEMI, PCI- cardiac rehab at [facility] Referral to Cardiology [REF12 Custom] As [...] of one year. After this time, your foiling machine adjuster will determine if you need to continue [...] away. Stay on the phone. The emergency network control operators supervisor will tell you what to do. Nitroglycerin [...] appointments: During 8am-5pm Tuesday through Tuesday call [phone] to speak with a nurse in the cardiology clinic All other times call [phone] and ask to speak to the cement mason apprentice messenger floorperson. Follow up Appointments: PCP Alexia Mtz, PROJECT MANAGER PROCESS DEVELOPMENT [phone]. Please call to establish a follow up [...] EKG. Patient transferred via air ambulance to [facility] on 07/29 for LHC and LOW to [facility] for 100% occlusion Social History: Pt lives with his in a 1 level home with 2 NAOMI. 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 He [...] Total time: 35 (tef) minutes Time IN/OUT: [id number] ZAIDA DUBOSE PT Pager: [phone] Physical Therapy Inpatient Rehabilitation Department * Yrn Ward MD - 08/03/2024 10:38 AM EST CV HOSPITALIST 2 - [facility] DAILY PROGRESS NOTE Page [phone] to reach a provider 04/04 Admit Date: [...] or before 29-JUL-2024) Lateral injury pattern ACUTE MT / STEMI Abnormal ECG When compared with [...] Compared to the overnight study by the messenger floorperson fellow the impella position is stable. 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 [facility] 07/29/24 Conclusions: * One vessel coronary artery disease (LAD) * Mild pulmonary hypertension * Elevated pulmonary capillary wedge pressure * Successful stent insertion of the proximal LAD lesion * See Dual Antiplatelet (DAPT) Recommendations above * Successful impella placement for cardiogenic shock. Telemetry: I have personally reviewed and interpreted the telemetry from the last 24 hours. [facility] Assessment: ASSESSMENT: Korey Montoya is a 74 y.o. male w/ PMH of hypertension, HLD, and BPH who presents for chief concern of chest pain after being found to have ST elevations on EKG. Patient transferred via air ambulance to [facility] on 07/29 for LHC and LOW to [...] be determined OT: PCP Alexia Mtz, FREDRICK [phone] * Zaida Dubose, PT - 08/02/2024 2:08 PM EST Physical Therapy Evaluation Patient profile: Korey Montoya is a 74 y.o. male w/ PMH of hypertension, HLD, and BPH who presents for chief concern of chest pain after being found to have ST elevations on EKG. Patient transferred via air ambulance to [facility] on 07/29 for LHC and LOW to LAD for 100% occlusion Social History: Pt lives with his in a 1 level home with 2 NAOMI. 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 He [...] Total time: 37 (eval) minutes Time IN/OUT: [id number] ZAIDA DUBOSE PT Pager: [phone] Physical Therapy Inpatient Rehabilitation Department * Gagan [...] EKG. Patient transferred via air ambulance to [facility] on 07/29 for LHC and LOW to LAD for 100% occlusion. TTE showed apical akinesis and inferior hypokinesis with EF 20%. RHC showed elevated filling pressures. Impella placed and P-level 6 at time of transfer to [facility]. CI initially 1.97, improved to [...] PCP: Alexia Mtz APRN PCP phone number: [phone] Date of Admission: 07/29/2024 ( Hospital Day 4 days ) Attending:Bridgette Stauffer MD ID: Korey Montoya is a 74 y.o. male w/ PMH of hypertension, HLD, and BPH on Hospital Day4 for chief concern of chest pain after being found to have ST elevations on EKG. Patient transferred via air ambulance to [facility] on 07/29 for LHC and LOW to [...] 07/29/24 1621 PHART 7.48* 7.44 7.38 7.37 [id number] 29* 29* 34* 36 PO2ART 71* 109* 141* 71* LHV9VHT 20.6 19.4* 19.5* 20.4 VBG (Venous Blood Gas) Recent Labs 07/29/24 1401 PHVEN 7.30* PO2VEN 39 SEX1CMF 20.1* Mixed Venous Sat No results for input(s): X0UGFD7 in the last 168 hours. Objective: Vitals [...] 07/29/24 1621 PHART 7.48* 7.44 7.38 7.37 PHM4XVV 29* 29* 34* 36 PO2ART 71* 109* 141* 71* GGM5KAJ 20.6 19.4* 19.5* 20.4 VBG (Venous Blood Gas) Recent Labs 07/29/24 1401 PHVEN 7.30* PO2VEN 39 YWC3DDI 20.1* Mixed Venous Sat No results for input(s): Q4QYSX7 in the last 168 hours. Microbiology: Microbiology Results (Last 30 days) Procedure Component Value Units Date/Time Blood culture [[id number]] Collected: 07/29/241607 Lab Status: Preliminary result Specimen: Blood, Venous Updated: 08/01/241700 Blood Culture No growth at 72 hours Blood culture [[id number]] Collected: 07/29/241607 Lab Status: Preliminary result Specimen: Blood, Venous Updated: 08/01/241700 Blood Culture No growth at 72 hours Imaging: Results for orders placed or performed during the hospital encounter of 07/29/24 XR Chest One View (Exam End: 07/29/2024 2:30 PM) Result Value WORKSTATION ID [id number] Impression 1. No pulmonary edema. 2. No pleural effusion. 3. No pneumothorax. Thank you for letting us participate in the care of this patient. If you are a health care provider and have any questions regarding this report, please contact the number below. For patients who have questions please contact the health life care planner that requested your imaging first. ( 07/30/24) [...] Compared to the overnight study by the messenger floorperson fellow the impella position is stable. The [...] EKG. Patient transferred via air ambulance to [facility] on 07/29 for LHC and LOW to [...] Susannah Ornelas MD Internal Medicine, PGY-1 Cardiology, [facility] 08/02/24 12:45 PM CARDIOLOGY STAFF [...] today). Transfer to floor. Krystal Parker, MD, [facility] Staff Cadastral Engineer hearing aid mechanic * Gagan Catherine MD - 08/01/2024 11:12 [...] EKG. Patient transferred via air ambulance to [facility] on 07/29 for LHC and LOW to [...] PCP: Alexia Mtz APRN PCP phone number: [phone] Date of Admission: 07/29/2024 ( Hospital Day 3 days ) Attending:Krystal Parker MD ID: Korey Montoya is a 74 y.o. male w/ PMH of hypertension, HLD, and BPH on Hospital Day3 for chief concern of chest pain after being found to have ST elevations on EKG. Patient transferred via air ambulance to [facility] on 07/29 for LHC and LOW to [...] 07/29/24 1621 PHART 7.48* 7.44 7.38 7.37 [id number] 29* 29* 34* 36 PO2ART 71* 109* 141* 71* YRD7LZZ 20.6 19.4* 19.5* 20.4 VBG (Venous Blood Gas) Recent Labs 07/29/24 1401 PHVEN 7.30* PO2VEN 39 BYU9BSK 20.1* Mixed Venous Sat No results for input(s): R5RANK6 in the last 168 hours. PA Catheter [...] 07/29/24 1621 PHART 7.48* 7.44 7.38 7.37 XWF0ITS 29* 29* 34* 36 PO2ART 71* 109* 141* 71* ZGM1CKJ 20.6 19.4* 19.5* 20.4 VBG (Venous Blood Gas) Recent Labs 07/29/24 1401 PHVEN 7.30* PO2VEN 39 OGY2DFP 20.1* Mixed Venous Sat No results for input(s): N7DUMD8 in the last 168 hours. Microbiology: Microbiology Results (Last 30 days) Procedure Component Value Units Date/Time Blood culture [[id number]] Collected: 07/29/241607 Lab Status: Preliminary result Specimen: Blood, Venous Updated: 07/31/241700 Blood Culture No growth at 48 hours Blood culture [[id number]] Collected: 07/29/241607 Lab Status: Preliminary result Specimen: Blood, Venous Updated: 07/31/241700 Blood Culture No growth at 48 hours Imaging: Results for orders placed or performed during the hospital encounter of 07/29/24 XR Chest One View (Exam End: 07/29/2024 2:30 PM) Result Value WORKSTATION ID [id number] Impression 1. No pulmonary edema. 2. No pleural effusion. 3. No pneumothorax. Thank you for letting us participate in the care of this patient. If you are a health care provider and have any questions regarding this report, please contact the number below. For patients who have questions please contact the health life care planner that requested your imaging first. ( 07/30/24) [...] Compared to the overnight study by the messenger floorperson fellow the impella position is stable. The [...] EKG. Patient transferred via air ambulance to [facility] on 07/29 for LHC and LOW to [...] Susannah Ornelas MD Internal Medicine, PGY-1 Cardiology, [facility] 08/01/24 7:13 AM CARDIOLOGY STAFF [...] with him; questions answered. Krystal Parker MD, [facility] Staff Cadastral Engineer hearing aid mechanic * Krystal Parkre MD - 07/31/2024 1:06 PM EST Cardiovascular [...] ILL WITH THESE DIAGNOSES BEING MANAGED BY [facility] TEAM: # Anterior STEMI, late-presenting [...] EKG. Patient transferred via air ambulance to [facility] on 07/29 for LHC and LOW to LAD for 100% occlusion. TTE showed apical akinesis and inferior hypokinesis with EF 20%. RHC showed elevated filling pressures. Impella placed and P-level 6 at time of transfer to [facility]. CI initially 1.97, improved to 2.2 After impella. Received about 3 L of fluid during procedural course. Patient initially required norepinephrine 30, epinephrine 10, and vasopressin 0.04 for hemodynamic support, which was weaned upon arrival to [facility] to norepinephrine 20and levo 0.04 [...] PCP: Alexia Mtz APRN PCP phone number: [phone] Date of Admission: 07/29/2024 ( Hospital Day 2 days ) Attending:Krystal Parker MD ID: Korey Montoya is a 74 y.o. male w/ PMH of hypertension, HLD, and BPH on Hospital Day2 for chief concern of chest pain after being found to have ST elevations on EKG. Patient transferred via air ambulance to [facility] on 07/29 for LHC and LOW to [...] 0057 07/29/24 1621 PHART 7.44 7.38 7.37 HOB2VLR 29* 34* 36 PO2ART 109* 141* 71* CFZ4FPE 19.4* 19.5* 20.4 VBG (Venous Blood Gas) Recent Labs 07/29/24 1401 PHVEN 7.30* PO2VEN 39 JXV9QZW 20.1* Mixed Venous Sat No results for input(s): D9JBRY1 in the last 168 hours. PA Catheter [...] 0057 07/29/24 1621 PHART 7.44 7.38 7.37 DQM3WER 29* 34* 36 PO2ART 109* 141* 71* NAV0GJJ 19.4* 19.5* 20.4 VBG (Venous Blood Gas) Recent Labs 07/29/24 1401 PHVEN 7.30* PO2VEN 39 AEE2KTF 20.1* Mixed Venous Sat No results for input(s): F0ZRRZ5 in the last 168 hours. Microbiology: Microbiology Results (Last 30 days) Procedure Component Value Units Date/Time Blood culture [[id number]] Collected: 07/29/241607 Lab Status: Preliminary result Specimen: Blood, Venous Updated: 07/30/24 170 Blood Culture No Growth at 18-24 hrs. Blood culture [[id number]] Collected: 07/29/241607 Lab Status: Preliminary result Specimen: Blood, Venous Updated: 07/30/241700 Blood Culture No Growth at 18-24 hrs. Imaging: Results for orders placed or performed during the hospital encounter of 07/29/24 XR Chest One View (Exam End: 07/29/2024 2:30 PM) Result Value WORKSTATION ID [id number] Impression 1. No pulmonary edema. 2. No pleural effusion. 3. No pneumothorax. Thank you for letting us participate in the care of this patient. If you are a health care provider and have any questions regarding this report, please contact the number below. For patients who have questions please contact the health life care planner that requested your imaging first. ( 07/30/24) [...] Compared to the overnight study by the messenger floorperson fellow the impella position is stable. The [...] EKG. Patient transferred via air ambulance to [facility] on 07/29 for LHC and LOW to [...] work to optimize volume status while continuing bxamrjl-smamsu-fpbsuphgcj therapies at this time. Obtain comprehensive TTE. [...] EKG. Patient transferred via air ambulance to [facility] on 07/29 for LHC and LOW to LAD for 100% occlusion. TTE showed apical akinesis and inferior hypokinesis with EF 20%. RHC showed elevated filling pressures. Impella placed and P-level 6 at time of transfer to [facility]. CI initially 1.97, improved to 2.2 After impella. Received about 3 L of fluid during procedural course. Patient initially required norepinephrine 30, epinephrine 10, and vasopressin 0.04 for hemodynamic support, which was weaned upon arrival to [facility] to norepinephrine 20and levo 0.04 [...] PCP: Yoel Artis APRN PCP phone number: [phone] Date of Admission: 07/29/2024 ( Hospital Day 1 day ) Attending:Jay Silverio MD ID: Korey Montoya is a 74 y.o. male w/ PMH of hypertension, HLD, and BPH on Hospital Day1 for chief concern of chest pain after being found to have ST elevations on EKG. Patient transferred via air ambulance to [facility] on 07/29 for LHC and LOW to [...] 0057 07/29/24 1621 PHART 7.44 7.38 7.37 EMK4GWF 29* 34* 36 PO2ART 109* 141* 71* GEL5VHR 19.4* 19.5* 20.4 VBG (Venous Blood Gas) Recent Labs 07/29/24 1401 PHVEN 7.30* PO2VEN 39 NMG7TNG 20.1* Lactate ( Last 12 hours) 1.3 >> 1.2 Mixed Venous Sat No results for input(s): T9LGCF3 in the last 168 hours. PA Catheter [...] 0057 07/29/24 1621 PHART 7.44 7.38 7.37 ITZ3NMK 29* 34* 36 PO2ART 109* 141* 71* ZLU9UDK 19.4* 19.5* 20.4 VBG (Venous Blood Gas) Recent Labs 07/29/24 1401 PHVEN 7.30* PO2VEN 39 TOW3OZJ 20.1* Mixed Venous Sat No results for input(s): G3CEYC3 in the last 168 hours. Microbiology: Microbiology Results (Last 30 days) Procedure Component Value Units Date/Time Blood culture [[id number]] Collected: 07/29/24 1608 Lab Status: In process Specimen: Blood, Venous Updated: 07/29/24 162 Blood culture [[id number]] Collected: 07/29/241607 Lab Status: In process Specimen: Blood, Venous Updated: 07/29/24 161 Imaging: Results for orders placed or performed during the hospital encounter of 07/29/24 XR Chest One View (Exam End: 07/29/2024 2:30 PM) Result Value WORKSTATION ID [id number] Impression 1. No pulmonary edema. 2. No pleural effusion. 3. No pneumothorax. Thank you for letting us participate in the care of this patient. If you are a health care provider and have any questions regarding this report, please contact the number below. For patients who have questions please contact the health life care planner that requested your imaging first. Medications Scheduled [...] EKG. Patient transferred via air ambulance to [facility] on 07/29 for LHC and LOW to [...] EKG. Patient transferred via air ambulance to [facility] on 07/29 for LHC and LOW to [...] EKG. Was transferred via air ambulance to [facility] for further management and [facility] demo nstrated 100% occlusion. No significant [...] (WRVU 4.57) performed by Brandan Mcgovern MD [facility] ENDOSCOPY Significant Family History: Family History [...] mouth. Past Week nitroGLYcerin (NITROLINGUAL) 400 mcg/spray Curtiss, Non-Aerosol 1 spray to anus for proctalgia [...] 3.5 guiding catheter and a 3.[address] [facility] [place] [address] 20 Mhz using Manual pullback. Imaging [...] priority for the procedure was Emergent. [facility] the procedure was STEMI-Immediate PCI [...] atmospheres. A premounted 3.00 x 22 mm [place] Bonner (LOW) was deployed with a maximum inflation [...] A premounted 3.00 x 08 mm [place] Bonner (LOW) was deployed with a maximum inflation [...] a limited study performed by a fellow messenger floorperson to evaluate for cardiogenic shock with impella [...] Compared to the overnight study by the messenger floorperson fellow the impella position is stable. The [...] EKG. Patient transferred via air ambulance to [facility] on 07/29 for LHC and LOW to [...] PCP: Yoel Artis APRN PCP phone number: [phone] Date of Admission: 07/29/2024 ( Hospital Day 0 days ) Attending:Jay Silverio MD ID: Korey Montoya is a 74 y.o. male w/ PMH of hypertension, HLD, and BPH who presents for chief concern of chest pain after being found to have ST elevations on EKG. Patient transferred via air ambulance to [facility] on 07/29 for LHC and LOW to LAD for 100% occlusion. HPI: Korey Montoya is a 74 y.o. male w/ PMH of hypertension, HLD, and BPH who presents for chief concern of chest pain after being found to have ST elevations on EKG. Patient transferred via air ambulance to [facility] on 07/29 for LHC and LOW to [...] EKG. Was transferred via air ambulance to [facility] for further management and LHC demonstrated 100% [...] (WRVU 4.57) performed by Brandan Mcgovern MD [facility] ENDOSCOPY Family History Family History Problem [...] Blood Gas) No results for input(s): PHART, OHC0EIR, PO2ART, BBN3GJF, LACTATEVEN, UIF5OHU, PFRATIOART2 in the last 168 hours. VBG (Venous Blood Gas) Recent Labs 07/29/24 1401 PHVEN 7.30* PO2VEN 39 HBS2LHA 20.1* Mixed Venous Sat No results for input(s): M5PJCE7 in the last 168 hours. PA Catheter [...] Blood Gas) No results for input(s): PHART, OEN2BSB, PO2ART, QYR1QBO, LACTATEVEN, IQO2ZRR, PFRATIOART2 in the last 168 hours. VBG (Venous Blood Gas) Recent Labs 07/29/24 1401 PHVEN 7.30* PO2VEN 39 NOI8OVN 20.1* Mixed Venous Sat No results for input(s): Y2ZIFJ7 in the last 168 hours. Microbiology: Microbiology [...] EKG. Patient transferred via air ambulance to [facility] on 07/29 for LHC. Found to have 100% occlusion of LAD for which he underwent LOW to LAD.Otherwise no other significant vessel disease. Fahad is currently hemodynamically tenuous but improving upon admission to [facility], requiring hemodynamic support with norepinephrine and vasopressin at time of admission along with mechanical support with Impella device. Reassuringly, he demonstrates decreasing pressor requirements since admission to [facility], with epinephrine completely weaned. He [...] Bernardo Amos MD Internal Medicine, PGY-3 Cardiology, [facility] 07/29/24 3:14 PM Cardiology Attending [...] MD, FACP, FACC Section of Cardiovascular Medicine [facility] Supervisor Compounding And Finishingtransportation broker [facility] [employer] [facility] This patient meets or has [...] to the planned procedure. Hand Hygiene: The sleeve setter safety stitch did perform hand hygiene prior to arterial [...] ease. Good wave form. Ivan Hernandez MD [facility] Associated attestation - Rolando Yeh MD - [...] Fahad was quite active prior to his MT. 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 Given parameters for home exercise. He follows a heart healthy diet and is not overweight. His lipids are wnl. Participation in an outpatient cardiac rehabilitation program at [facility] was discussed. Patient agrees to a [...] MEDICARE Payor: [employer] MANAGED MEDICARE / [facility] / Product Type: [...] of Discharge: 08/04/2024 Gaby Wong RN, CM [phone] * Initial Assessments - Char Meza OT - 08/03/2024 10:00 AM EST Occupational Therapy Evaluation Patient profile: Korey Montoya is a 74 y.o. male admitted on 07/29/2024 w/ PMH of hypertension, HLD, and BPH who presents for chief concern of chest pain after being found to have ST elevations onEKG. Patient transferred via air ambulance to [facility] on 07/29 for LHC and LOW to LAD for 100% occlusion. Past Medical History: Diagnosis Date ADHD HLD (hyperlipidemia) HTN (hypertension) Tremor Past Surgical History: Procedure Laterality Date HAND SURGERY PRO COLONOSCOPY, REMV LESN, SNARE N/A 08/30/2023 COLONOSCOPY, POLYPECTOMY, REMOVAL LESION BY SNARE (WRVU 4.57) performed by Brandan Mcgovern MD [facility] ENDOSCOPY Social History: Patient lives with [...] evaluation only Total Minutes, Occupational Therapy: 14 ([id number] (evaluation)) 2017 OT Evaluation Code Rationale: Diagnosis [...] and measurable assessment of functional outcome. Pager: [phone] Char Meza OT 08/03/2024 Occupational Therapy Rehabilitation [...] Procedure Note: Patient Name: Korey Montoya : [id number] MR#: [id number] Case Date: 07/31/2024 Flange Turner: Surgeons and Role: * Maldonado Luis MD - Primary * Quinten Charles PA - Physician Straightening Press Operator Preoperative diagnosis: shock, impella Postoperative diagnosis: * same * Procedure(s) performed: Impella removal form right WAYS OPERATOR Access: Right WAYS OPERATOR A time-out was conducted prior to the [...] Admitted From: Transfer from another hospital Location: [facility] Reason for Hospitalization: chest pain Past medical History: Past Medical History: Diagnosis Date ADHD HLD (hyperlipidemia) HTN (hypertension) Tremor Hospitalizations Within the Past 30 Days: no previous admission in last 30 days Current Decision-Making Capacity: Self If AD's have not been completed the following surrogate would be surrogate decision maker per [place] surrogate decision making law. (Only good for 180 days) Any patient receiving care in [place] must abide by [place] law. The hierarchy for surrogate decision making [...] (i) The agent with financial power of tax associate attorney or a conservator appointed in accordance [...] were you homeless or living in a fci (including now)?: No In the past 12 months has the [employer], gas, oil, or water [employer] threatened to shut off services in your [...] it) Home Address confirmed as: Mailing Address: [facility] [address] [place] [address] Physical Address: [address] [place], [place] Social & Family Supports: All names [...] points: Addiction likely Health/Prescription Coverage: Primary Insurance: [facility] [employer] MEDICARE Payor: [facility] [employer]act MEDICARE / Plan: [facility] [employer]act MEDICARE COMPLETE / Product Type: *No Product type* / Secondary Insurance: N/A ; Prescription Coverage: Yes Preferred Pharmacy: [address] [address] [place] Status: Patient is a : No Primary Care Provider confirmed: Alexia Mtz, FREDRICK [phone] Patient/Caregiver Goals of Treatment: return home Potential [...] 07/29/2024 6:25 PM EST 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 CXR and EKG completed. Impella [...] Procedure Note: Patient Name: Korey Montoya : [id number] MR#: [id number] Case Date: 07/29/2024 Flange Turner: Surgeons and Role: * Vahe Marvin MD - Primary * Susannah Watts PA - Physician Straightening Press Operator Preoperative diagnosis: STEMI Postoperative diagnosis: * STEMI, LAD Artery * * Cardiogenic Shock * Procedure(s) performed: [facility] Coronary angiogram Stent insertion coronary IVUS coronary Venous line insert RH [place] Colette Catheter Vascular closure device Ventricular assist [...] x 22 mm to 14 deonna JEISON Bonner with LIZ 3 flow. Residual distal disease at distal stent, overlapping distal stent was inserted with 3.0 x 8 mm JEISON Bonner. Systolic's in the 80's sustained. Patient re [...] 10:00 AM EST Office Visit Cardiology at [address] [phone] Mushtaq Murphy, PROJECT MANAGER PROCESS DEVELOPMENT Scheduled Orders Name Type Priority Associated Diagnoses [...] CBC (with Diff) (08/04/2024 6:08 AM EST) [facility] White Blood Cell 7.27 4.00 - 9.50 x10(3)/mc L 08/04/2024 6:39 AM [facility] Red Blood Cell 4.28(L) 4.58 - 5.54 x10(6)/mc L 08/04/2024 6:39 AM [facility] Hemoglobin 11.6(L) 13.7 - 16.5 g/dL 08/04/2024 6:39 AM [facility] Hematocrit 34.8(L) 40.5 - 48.5 % 08/04/2024 6:39 AM [facility] Mean Cell Volume 81.3(L) 82.9 - 93.1 fL 08/04/2024 6:39 AM [facility] Mean Cell Hemoglobin 27.1(L) 27.5 - 32.1 pg 08/04/2024 6:39 AM [facility] Mean Cell Hemoglobin Concentration 33.3 32.0 - 35.7 g/dL 08/04/2024 6:39 AM [facility] Platelet 178 145 - 357 x10(3)/mc L 08/04/2024 6:39 AM [facility] Mean Platelet Volume 10.6 7.6 - 12.9 fL 08/04/2024 6:39 AM [facility] RDW Standard Deviation 42.0 36.0 - 45.0 fL 08/04/2024 6:39 AM [facility] RDW coefficient of variation 14.3(H) 11.4 - 13.8 % 08/04/2024 6:39 AM [facility] NRBC% auto 0.0 % 08/04/2024 6:39 AM [facility] NRBC Absolute <0.01 <0.01 x10(3)/mc L 08/04/2024 6:39 AM [facility] Neutrophil % 72.1 % 08/04/2024 6:39 AM [facility] Neutrophil Absolute (ANC) - Automated 5.24 1.70 - 6.10 x10(3)/mc L 08/04/2024 6:39 AM [facility] Lymph % 16.8 % 08/04/2024 6:39 AM [facility] Lymph Absolute 1.22 0.90 - 3.20 x10(3)/mc L 08/04/2024 6:39 AM [facility] Monocyte % 8.5 % 08/04/2024 6:39 AM [facility] Monocyte Absolute 0.62 0.30 - 0.90 x10(3)/mc L 08/04/2024 6:39 AM [facility] Eos % 1.9 % 08/04/2024 6:39 AM [facility] Eos Absolute 0.14 0.00 - 0.40 x10(3)/mc L 08/04/2024 6:39 AM [facility] Basophil % 0.4 % 08/04/2024 6:39 AM [facility] Baso Absolute <0.04 0.00 - 0.10 x10(3)/mc L 08/04/2024 6:39 AM [facility] Immature Gran % 0.3 % 6:39 AM [facility] Immature Gran Absolute <0.04 0.00 - 0.04 x10(3)/mc L 08/04/2024 6:39 AM [facility] Blood VENOUS BLOOD SPECIMEN / Unknown Venipuncture / Unknown 08/04/2024 6:08 AM EST 08/04/2024 6:19 AM EST Bridgette Stauffer MD HEMATOLOGY ORDERABLE S [facility] [place] [address] * Magnesium (08/04/2024 6:08 AM EST) Magnesium 0.85 0.69 - 1.07 mMol/L 08/04/2024 7:07 AM [facility] Blood VENOUS BLOOD SPECIMEN / Unknown Venipuncture / Unknown 08/04/2024 6:08 AM EST 08/04/2024 6:19 AM EST Bridgette Stauffer MD CHEMISTRY ORDERABLES [facility] [place] [address] * Basic Metabolic Panel (08/04/2024 6:08 AM EST) Glucose 93 65 - 199 mg/dL 08/04/2024 7:07 AM [facility] Comment:Glucose Concentratio n >=200 mg/dL plus symptoms is consistent with Diabetes Mellitus. Blood Urea Nitrogen 14 10 - 20 mg/dL 08/04/2024 7:07 AM [facility] Creatinine 1.07 0.80 - 1.50 mg/dL 08/04/2024 7:07 AM [facility] Sodium 138 135 - 145 mMol/L 08/04/2024 7:07 AM [facility] Potassium 4.3 3.5 - 5.0 mMol/L 08/04/2024 7:07 AM [facility] Chloride 107 98 - 107 mMol/L 08/04/2024 7:07 AM [facility] Carbon Dioxide 23 22 - 31 mMol/L 08/04/2024 7:07 AM [facility] Anion Gap 8 5 - 15 mMol/L 08/04/2024 7:07 AM [facility] Calcium 8.5 8.5 - 10.5 mg/dL 08/04/2024 7:07 AM [facility] Est Glomerular Filtration Rate - Male 74 mL/min/1. 73 m?? 08/04/2024 7:07 AM [facility] Comment: This patient's estimated GFR [...] AM EST Bridgette Stauffer MD CHEMISTRY ORDERABLES [facility] [place] [address] * (ABNORMAL) CBC (with Diff) (08/03/2024 5:16 AM EST) White Blood Cell 7.85 4.00 - 9.50 x10(3)/mc L 08/03/2024 5:29 AM [facility] Red Blood Cell 4.43(L) 4.58 - 5.54 x10(6)/mc L 08/03/2024 5:29 AM [facility] Hemoglobin 11.8(L) 13.7 - 16.5 g/dL 08/03/2024 5:29 AM [facility] Hematocrit 35.9(L) 40.5 - 48.5 % 08/03/2024 5:29 AM [facility] Mean Cell Volume 81.0(L) 82.9 - 93.1 fL 08/03/2024 5:29 AM [facility] Mean Cell Hemoglobin 26.6(L) 27.5 - 32.1 pg 08/03/2024 5:29 AM [facility] Mean Cell Hemoglobin Concentration 32.9 32.0 - 35.7 g/dL 08/03/2024 5:29 AM [facility] Platelet 142(L) 145 - 357 x10(3)/mc L 08/03/2024 5:29 AM [facility] Mean Platelet Volume 10.5 7.6 - 12.9 fL 08/03/2024 5:29 AM [facility] RDW Standard Deviation 42.5 36.0 - 45.0 fL 08/03/2024 5:29 AM [facility] RDW coefficient of variation 14.2(H) 11.4 - 13.8 % 08/03/2024 5:29 AM [facility] NRBC% auto 0.0 % 08/03/2024 5:29 AM [facility] NRBC Absolute <0.01 <0.01 x10(3)/mc L 08/03/2024 5:29 AM [facility] Neutrophil % 75.2 % 08/03/2024 5:29 AM [facility] Neutrophil Absolute (ANC) - Automated 5.91 1.70 - 6.10 x10(3)/mc L 08/03/2024 5:29 AM [facility] Lymph % 13.4 % 08/03/2024 5:29 AM [facility] Lymph Absolute 1.05 0.90 - 3.20 x10(3)/mc L 08/03/2024 5:29 AM [facility] Monocyte % 9.0 % 08/03/2024 5:29 AM [facility] Monocyte Absolute 0.71 0.30 - 0.90 x10(3)/mc L 08/03/2024 5:29 AM [facility] Eos % 1.7 % 08/03/2024 5:29 AM [facility] Eos Absolute 0.13 0.00 - 0.40 x10(3)/mc L 08/03/2024 5:29 AM [facility] Basophil % 0.4 % 08/03/2024 5:29 AM [facility] Baso Absolute <0.04 0.00 - 0.10 x10(3)/mc L 08/03/2024 5:29 AM [facility] Immature Gran % 0.3 % 5:29 AM [facility] Immature Gran Absolute <0.04 0.00 - 0.04 x10(3)/mc L 08/03/2024 5:29 AM [facility] Blood VENOUS BLOOD SPECIMEN / Unknown Venipuncture / Unknown 08/03/2024 5:16 AM EST 08/03/2024 5:23 AM EST Bridgette Stauffer MD HEMATOLOGY ORDERABLE S [facility] [place] [address] * Magnesium (08/03/2024 5:16 AM EST) Magnesium 0.89 0.69 - 1.07 mMol/L 08/03/2024 5:56 AM [facility] Blood VENOUS BLOOD SPECIMEN / Unknown Venipuncture / Unknown 08/03/2024 5:16 AM EST 08/03/2024 5:23 AM EST Bridgette Stauffer MD CHEMISTRY ORDERABLES [facility] [place] [address] * (ABNORMAL) Basic Metabolic Panel (08/03/2024 5:16 AM EST) Glucose 98 65 - 199 mg/dL 08/03/2024 5:56 AM [facility] Comment:Glucose Concentratio n >=200 mg/dL plus symptoms is consistent with Diabetes Mellitus. Blood Urea Nitrogen 16 10 - 20 mg/dL 08/03/2024 5:56 AM [facility] Creatinine 0.85 0.80 - 1.50 mg/dL 08/03/2024 5:56 AM [facility] Sodium 137 135 - 145 mMol/L 08/03/2024 5:56 AM EST [facility] Potassium 4.5 3.5 - 5.0 mMol/L 08/03/2024 5:56 AM [facility] Chloride 106 98 - 107 mMol/L 08/03/2024 5:56 AM [facility] Carbon Dioxide 21(L) 22 - 31 mMol/L 08/03/2024 5:56 AM [facility] Anion Gap 10 5 - 15 mMol/L 08/03/2024 5:56 AM EST [facility] Calcium 8.3(L) 8.5 - 10.5 mg/dL 08/03/2024 5:56 AM [facility] Est Glomerular Filtration Rate - Male 92 mL/min/1. 73 m?? 08/03/2024 5:56 AM [facility] Comment: This patient's estimated GFR [...] Stauffer MD CHEMISTRY ORDERABLES Performing Organization Address [facility]/ZIP Co de Phone Number [facility] [place] [address] * POC, GLUCOSE (08/02/2024 7:47 AM EST) Glucometer, POC 89 65 - 199 mg/dL 08/02/2024 7:47 AM EST [facility] Comment:Supplemental ranges: <140 mg/dL before meals <180 mg/dL all other times of the day. Blood CAPILLARY BLOOD / Unknown 08/02/2024 7:47 AM EST 08/02/2024 7:47 AM EST Krystal Parker MD POINT OF CARE TEST O RDERABLES Performing Organization Address [facility] Co de Phone Number [facility] [place] [address] * (ABNORMAL) CBC (with Diff) (08/02/2024 4:20 AM EST) White Blood Cell 8.51 4.00 - 9.50 x10(3)/mc L 08/02/2024 4:50 AM EST [facility] Red Blood Cell 4.41(L) 4.58 - 5.54 x10(6)/mc L 08/02/2024 4:50 AM EST [facility] Hemoglobin 12.2(L) 13.7 - 16.5 g/dL 08/02/2024 4:50 AM EST [facility] Hematocrit 35.8(L) 40.5 - 48.5 % 08/02/2024 4:50 AM [facility] Mean Cell Volume 81.2(L) 82.9 - 93.1 fL 08/02/2024 4:50 AM [facility] Mean Cell Hemoglobin 27.7 27.5 - 32.1 pg 08/02/2024 4:50 AM [facility] Mean Cell Hemoglobin Concentration 34.1 32.0 - 35.7 g/dL 08/02/2024 4:50 AM [facility] Platelet 111(L) 145 - 357 x10(3)/mc L 08/02/2024 4:50 AM [facility] Mean Platelet Volume 11.1 7.6 - 12.9 fL 08/02/2024 4:50 AM [facility] RDW Standard Deviation 41.9 36.0 - 45.0 fL 08/02/2024 4:50 AM [facility] RDW coefficient of variation 14.1(H) 11.4 - 13.8 % 08/02/2024 4:50 AM [facility] NRBC% auto 0.0 % 08/02/2024 4:50 AM [facility] NRBC Absolute <0.01 <0.01 x10(3)/mc L 08/02/2024 4:50 AM [facility] Neutrophil % 77.7 % 08/02/2024 4:50 AM [facility] Neutrophil Absolute (ANC) - Automated 6.62(H) 1.70 - 6.10 x10(3)/mc L 08/02/2024 4:50 AM [facility] Lymph % 11.9 % 08/02/2024 4:50 AM [facility] Lymph Absolute 1.01 0.90 - 3.20 x10(3)/mc L 08/02/2024 4:50 AM [facility] Monocyte % 8.2 % 08/02/2024 4:50 AM [facility] Monocyte Absolute 0.70 0.30 - 0.90 x10(3)/mc L 08/02/2024 4:50 AM [facility] Eos % 1.4 % 08/02/2024 4:50 AM [facility] Eos Absolute 0.12 0.00 - 0.40 x10(3)/mc L 08/02/2024 4:50 AM [facility] Basophil % 0.4 % 08/02/2024 4:50 AM [facility] Baso Absolute <0.04 0.00 - 0.10 x10(3)/mc L 08/02/2024 4:50 AM [facility] Immature Gran % 0.4 % 4:50 AM [facility] Immature Gran Absolute <0.04 0.00 - 0.04 x10(3)/mc L 08/02/2024 4:50 AM [facility] Blood VENOUS BLOOD SPECIMEN / Unknown Venipuncture / Unknown 08/02/2024 4:20 AM EST 08/02/2024 4:37 AM EST Bridgette Stauffer MD HEMATOLOGY ORDERABLE S [facility] [place] [address] * Magnesium (08/02/2024 4:20 AM EST) Magnesium 0.79 0.69 - 1.07 mMol/L 08/02/2024 5:06 AM EST [facility] Blood VENOUS BLOOD SPECIMEN / Unknown Venipuncture / Unknown 08/02/2024 4:20 AM EST 08/02/2024 4:37 AM EST Bridgette Stauffer MD CHEMISTRY ORDERABLES [facility] [place] [address] * (ABNORMAL) Basic Metabolic Panel (08/02/2024 4:20 AM EST) Glucose 110 65 - 199 mg/dL 08/02/2024 5:06 AM [facility] Comment:Glucose Concentratio n >=200 mg/dL plus symptoms is consistent with Diabetes Mellitus. Blood Urea Nitrogen 12 10 - 20 mg/dL 08/02/2024 5:06 AM [facility] Creatinine 0.90 0.80 - 1.50 mg/dL 08/02/2024 5:06 AM [facility] Sodium 139 135 - 145 mMol/L 08/02/2024 5:06 AM [facility] Potassium 4.0 3.5 - 5.0 mMol/L 08/02/2024 5:06 AM [facility] Chloride 108(H) 98 - 107 mMol/L 08/02/2024 5:06 AM [facility] Carbon Dioxide 23 22 - 31 mMol/L 08/02/2024 5:06 AM [facility] Anion Gap 8 5 - 15 mMol/L 08/02/2024 5:06 AM [facility] Calcium 8.1(L) 8.5 - 10.5 mg/dL 08/02/2024 5:06 AM [facility] Est Glomerular Filtration Rate - Male 91 mL/min/1. 73 m?? 08/02/2024 5:06 AM [facility] Comment: This patient's estimated GFR [...] Stauffer MD CHEMISTRY ORDERABLES Performing Organization Address [facility] Co de Phone Number [facility] [place] [address] * Potassium (08/01/2024 8:39 PM EST) Potassium 4.0 3.5 - 5.0 mMol/L 08/01/2024 9:21 PM EST [facility] Blood VENOUS BLOOD SPECIMEN / Unknown Venipuncture / Unknown 08/01/2024 8:39 PM EST 08/01/2024 8:51 PM EST Jay Silverio MD CHEMISTRY ORDERABL ES Performing Organization Address [facility] Phone Number [facility] [place] [address] * POC, GLUCOSE (08/01/2024 8:35 PM EST) Glucometer, POC 112 65 - 199 mg/dL 08/01/2024 8:36 PM EST [facility] Comment:Supplemental ranges: <140 mg/dL before meals <180 mg/dL all other times of the day. Blood CAPILLARY BLOOD / Unknown 08/01/2024 8:35 PM EST 08/01/2024 8:36 PM EST Krystal Parker MD POINT OF CARE TEST O RDERABLES Performing Organization Address [facility] Co de Phone Number [facility] [place] [address] * POC, GLUCOSE (08/01/2024 4:55 PM EST) Glucometer, POC 99 65 - 199 mg/dL 08/01/2024 4:56 PM EST [facility] Comment:Supplemental ranges: <140 mg/dL before meals <180 mg/dL all other times of the day. Blood CAPILLARY BLOOD / Unknown 08/01/2024 4:55 PM EST 08/01/2024 4:56 PM EST Krystal Parker MD POINT OF CARE TEST O JOSH Performing Organization Address [facility] Co de Phone Number [facility] [place] [address] * POC, GLUCOSE (08/01/2024 12:42 PM EST) Glucometer, POC 130 65 - 199 mg/dL 08/01/2024 12:43 PM EST [facility] Comment:Supplemental ranges: <140 mg/dL before meals <180 mg/dL all other times of the day. Blood CAPILLARY BLOOD / Unknown 08/01/2024 12:42 PM EST 08/01/2024 12:43 PM EST Krystal Parker MD POINT OF CARE TEST O JOSH Performing Organization Address [facility] Co de Phone Number [facility] [place] [address] * (ABNORMAL) Cooximetry, POC (08/01/2024 10:45 AM EST) pO2, Coox 32 mmHg 08/01/2024 10:48 AM [facility] Hemoglobin, Coox 12.9(L) 13.7 - 16.5 g/dL 08/01/2024 10:48 AM EST [facility] Oxyhemoglobin, Coox 66.7 % 08/01/2024 10:48 AM [facility] Carboxyhemoglo bin, Coox 1.1 % 08/01/2024 10:48 AM EST [facility] Comment: Nonsmokers: 0.5-1.5% COHB ?? Smokers: Variable ??but usually less than 10% ?? Toxic: 20-30% COHB ?? Lethal: Greater than 60% COHB Methemoglobin, Coox 0.3 <=1.5 % 08/01/2024 10:48 AM EST [facility] Blood (Mixed Venous) 08/01/2024 10:45 AM EST 08/01/2024 10:48 AM EST Krystal Parker MD POINT OF CARE TEST O RDERABLES Performing Organization Address [facility] Co de Phone Number [facility] [place] [address] * Potassium (08/01/2024 8:20 AM EST) Potassium 4.0 3.5 - 5.0 mMol/L 08/01/2024 10:17 AM EST [facility] Blood ARTERIAL BLOOD / Unknown Venipuncture / Unknown 08/01/2024 8:20 AM EST 08/01/2024 8:30 AM EST Jay Silverio MD CHEMISTRY ORDERABL ES Performing Organization Address [facility] Co de Phone Number [facility] [place] [address] * POC, GLUCOSE (08/01/2024 7:44 AM EST) Glucometer, POC 86 65 - 199 mg/dL 08/01/2024 7:44 AM EST [facility] Comment:Supplemental ranges: <140 mg/dL before meals <180 mg/dL all other times of the day. Blood CAPILLARY BLOOD / Unknown 08/01/2024 7:44 AM EST 08/01/2024 7:44 AM EST Krystal Parker MD POINT OF CARE TEST O RDERASHAY Performing Organization Address [facility]/ZIP Co de Phone Number [facility] [place] [address] * (ABNORMAL) CBC (with Diff) (08/01/2024 4:18 AM EST) White Blood Cell 8.51 4.00 - 9.50 x10(3)/mc L 08/01/2024 4:53 AM EST [facility] Red Blood Cell 4.12(L) 4.58 - 5.54 x10(6)/mc L 08/01/2024 4:53 AM [facility] Hemoglobin 11.2(L) 13.7 - 16.5 g/dL 08/01/2024 4:53 AM [facility] Hematocrit 33.8(L) 40.5 - 48.5 % 08/01/2024 4:53 AM [facility] Mean Cell Volume 82.0(L) 82.9 - 93.1 fL 08/01/2024 4:53 AM [facility] Mean Cell Hemoglobin 27.2(L) 27.5 - 32.1 pg 08/01/2024 4:53 AM [facility] Mean Cell Hemoglobin Concentration 33.1 32.0 - 35.7 g/dL 08/01/2024 4:53 AM [facility] Platelet 94(L) 145 - 357 x10(3)/mc L 08/01/2024 4:53 AM [facility] Mean Platelet Volume 10.9 7.6 - 12.9 fL 08/01/2024 4:53 AM [facility] RDW Standard Deviation 44.2 36.0 - 45.0 fL 08/01/2024 4:53 AM [facility] RDW coefficient of variation 14.7(H) 11.4 - 13.8 % 08/01/2024 4:53 AM [facility] NRBC% auto 0.0 % 08/01/2024 4:53 AM [facility] NRBC Absolute <0.01 <0.01 x10(3)/mc L 08/01/2024 4:53 AM [facility] Neutrophil % 82.7 % 08/01/2024 4:53 AM [facility] Neutrophil Absolute (ANC) - Automated 7.04(H) 1.70 - 6.10 x10(3)/mc L 08/01/2024 4:53 AM [facility] Lymph % 8.6 % 08/01/2024 4:53 AM [facility] Lymph Absolute 0.73(L) 0.90 - 3.20 x10(3)/mc L 08/01/2024 4:53 AM [facility] Monocyte % 7.6 % 08/01/2024 4:53 AM [facility] Monocyte Absolute 0.65 0.30 - 0.90 x10(3)/mc L 08/01/2024 4:53 AM [facility] Eos % 0.5 % 08/01/2024 4:53 AM [facility] Eos Absolute 0.04 0.00 - 0.40 x10(3)/mc L 08/01/2024 4:53 AM [facility] Basophil % 0.2 % 08/01/2024 4:53 AM [facility] Baso Absolute <0.04 0.00 - 0.10 x10(3)/mc L 08/01/2024 4:53 AM [facility] Immature Gran % 0.4 % 4:53 AM [facility] Immature Gran Absolute <0.04 0.00 - 0.04 x10(3)/mc L 08/01/2024 4:53 AM [facility] Blood VENOUS BLOOD SPECIMEN / Unknown Venipuncture / Unknown 08/01/2024 4:18 AM EST 08/01/2024 4:29 AM EST Bridgette Stauffer MD HEMATOLOGY ORDERABLE S [facility] [place] [address] * Magnesium (08/01/2024 4:18 AM EST) Magnesium 0.74 0.69 - 1.07 mMol/L 08/01/2024 5:00 AM [facility] Blood VENOUS BLOOD SPECIMEN / Unknown Venipuncture / Unknown 08/01/2024 4:18 AM EST 08/01/2024 4:29 AM EST Bridgette Stauffer MD CHEMISTRY ORDERABLES [facility] [place] [address] * (ABNORMAL) Basic Metabolic Panel (08/01/2024 4:18 AM EST) Glucose 107 65 - 199 mg/dL 08/01/2024 5:00 AM [facility] Comment:Glucose Concentratio n >=200 mg/dL plus symptoms is consistent with Diabetes Mellitus. Blood Urea Nitrogen 8(L) 10 - 20 mg/dL 08/01/2024 5:00 AM [facility] Creatinine 0.82 0.80 - 1.50 mg/dL 08/01/2024 5:00 AM [facility] Sodium 137 135 - 145 mMol/L 08/01/2024 5:00 AM [facility] Potassium 3.9 3.5 - 5.0 mMol/L 08/01/2024 5:00 AM [facility] Chloride 108(H) 98 - 107 mMol/L 08/01/2024 5:00 AM [facility] Carbon Dioxide 21(L) 22 - 31 mMol/L 08/01/2024 5:00 AM [facility] Anion Gap 8 5 - 15 mMol/L 08/01/2024 5:00 AM [facility] Calcium 7.7(L) 8.5 - 10.5 mg/dL 08/01/2024 5:00 AM [facility] Est Glomerular Filtration Rate - Male 93 mL/min/1. 73 m?? 08/01/2024 5:00 AM [facility] Comment: This patient's estimated GFR [...] Stauffer MD CHEMISTRY ORDERABLES Performing Organization Address [facility] Co de Phone Number [facility] [place] [address] * POC, GLUCOSE (07/31/2024 8:41 PM EST) [facility] Signature Glucometer, POC 73 65 - 199 mg/dL 07/31/2024 8:41 PM EST [facility] Comment:Supplemental ranges: <140 mg/dL before meals <180 mg/dL all other times of the day. Blood CAPILLARY BLOOD / Unknown 07/31/2024 8:41 PM EST 07/31/2024 8:41 PM EST Krystal Parker MD POINT OF CARE TEST O RDERABLES Performing Organization Address [facility] Co de Phone Number [facility] [place] [address] * CARDIAC CATHETERIZATION (07/31/2024 5:53 PM EST) Anatomical Region Laterality Modality Other Narrative 08/01/2024 12:37 PM EST ?[facility] ? Cardiac Catheterization/Intervention Report ? Patient Name: Korey Montoya. ? Procedure Date: 07/31/2024 ? A #: [id number] ? Primary Physician: Janelle, Maldonado T ? Case #: [id number] ? File Name: [id number] ? Catheterization Order Number: [id number] ? [facility] ? Final Report [place], [place] ? Patient Name: ? Korey P. Montoya ?ID#: ?[id number] ? : ?1950 ? Procedure Date: ? July 31, 2024 ?Case #: ? [id number] ? Room: ? 1 ? Case Physician: [...] ? Comments: ?Impella removed from the right WAYS OPERATOR with deployment of Perclose and ?Angioseal. ??Good [...] Procedure Note Maldonado Luis MD - 08/01/2024 [facility] Cardiac Catheterization/Intervention Report Patient Name: Korey MontoyaToby Procedure Date: 07/31/2024 A #: [id number] Primary Physician: Maldonado Luis Case #: [id number] File Name: [id number] Catheterization Order Number: [id number] [facility] FinalReport [place], [place] Patient Name: Korey Montoya ID#:[id number] :1950 Procedure Date: July 31, 2024 Case [...] was designated as ASA Class IV. The [facility] clinical frailtyscale is 4: Vulnerable. Diagnostic Tests: [...] procedures. Comments: Impella removed from the right WAYS OPERATOR with deployment of Perclose and Angioseal. Good [...] * POC, GLUCOSE (07/31/2024 11:04 AM EST) [facility] Glucometer, POC 82 65 - 199 mg/dL 07/31/2024 11:04 AM EST [facility] Comment:Supplemental ranges: <140 mg/dL before meals <180 mg/dL all other times of the day. Blood CAPILLARY BLOOD / Unknown 07/31/2024 11:04 AM EST 07/31/2024 11:04 AM EST Krystal Parker MD POINT OF CARE TEST O RDERABLES [facility] [place] [address] * (ABNORMAL) Blood Gas, Arterial POC (07/31/2024 8:29 AM EST) Pathologist [facility] pH, Arterial 7.48(H) 7.35 - 7.45 07/31/2024 8:30 AM EST [facility] PCO2, Arterial 29(L) 35 - 45 mmHg 07/31/2024 8:30 AM EST [facility] PO2, Arterial 71(L) 85 - 104 mmHg 07/31/2024 8:30 AM EST [facility] Bicarbonate, Arterial 20.6 20.0 - 26.0 mmol/L 07/31/2024 8:30 AM EST [facility] Base Excess, Arterial -3.0 -3.0 - 3.0 mmol/L 07/31/2024 8:30 AM [facility] Hemoglobin, Arterial 12.3(L) 13.7 - 16.5 g/dL 07/31/2024 8:30 AM [facility] Oxyhemoglobin, Arterial 94.4 94.0 - 97.0 % 07/31/2024 8:30 AM [facility] Carboxyhemoglobin , Arterial 0.7 % 07/31/2024 8:30 AM [facility] Comment: Nonsmokers: 0.5-1.5% COHB ?? Smokers: Variable ??but usually less than 10% ?? Toxic: 20-30% COHB ?? Lethal: Greater than 60% COHB Methemoglobin, Arterial 0.3 <=1.5 % 07/31/2024 8:30 AM [facility] Sodium, Arterial 138 135 - 145 mmol/L 07/31/2024 8:30 AM [facility] Potassium, Arterial 3.5 3.5 - 5.0 mmol/L 07/31/2024 8:30 AM [facility] Chloride, Arterial 109(H) 98 - 107 mmol/L 07/31/2024 8:30 AM [facility] Lactate, Arterial 0.8 0.5 - 2.2 mmol/L 07/31/2024 8:30 AM [facility] Fraction of Inspired Oxygen 21 % 07/31/2024 8:30 AM [facility] PF Ratio 338 Ratio 07/31/2024 8:30 AM [facility] Comment:PF ratio calculated using the non-temperature corrected pO2 result. IONIZED CALCIUM, ARTERIAL 1.08(L) 1.15 - 1.33 mmol/L 07/31/2024 8:30 AM [facility] Glucose, Arterial 86 65 - 199 mg/dL 07/31/2024 8:30 AM [facility] Comment:Glucose Concentratio n >=200 mg/dL plus symptoms is consistent with Diabetes Mellitus. Blood ARTERIAL BLOOD / Unknown 07/31/2024 8:29 AM EST 07/31/2024 8:30 AM EST Krystal Parker MD POINT OF CARE TEST O JOSH Performing Organization Address [facility]/ZIP Co de Phone Number [facility] [place] [address] * POC, GLUCOSE (07/31/2024 7:47 AM EST) Glucometer, POC 82 65 - 199 mg/dL 07/31/2024 7:53 AM [facility] Comment:Supplemental ranges: <140 mg/dL before meals <180 mg/dL all other times of the day. Blood CAPILLARY BLOOD / Unknown 07/31/2024 7:47 AM EST 07/31/2024 7:53 AM EST Krystal Parker MD POINT OF CARE TEST O JOSH Performing Organization Address [facility] Co de Phone Number [facility] [place] [address] * (ABNORMAL) CBC (with Diff) (07/31/2024 1:08 AM EST) White Blood Cell 10.25(H) 4.00 - 9.50 x10(3)/mc L 07/31/2024 1:28 AM [facility] Red Blood Cell 4.13(L) 4.58 - 5.54 x10(6)/mc L 07/31/2024 1:28 AM [facility] Hemoglobin 11.2(L) 13.7 - 16.5 g/dL 07/31/2024 1:28 AM [facility] Hematocrit 33.9(L) 40.5 - 48.5 % 07/31/2024 1:28 AM [facility] Mean Cell Volume 82.1(L) 82.9 - 93.1 fL 07/31/2024 1:28 AM [facility] Mean Cell Hemoglobin 27.1(L) 27.5 - 32.1 pg 07/31/2024 1:28 AM [facility] Mean Cell Hemoglobin Concentration 33.0 32.0 - 35.7 g/dL 07/31/2024 1:28 AM [facility] Platelet 109(L) 145 - 357 x10(3)/mc L 07/31/2024 1:28 AM [facility] Mean Platelet Volume 10.4 7.6 - 12.9 fL 07/31/2024 1:28 AM [facility] RDW Standard Deviation 45.1(H) 36.0 - 45.0 fL 07/31/2024 1:28 AM [facility] RDW coefficient of variation 15.1(H) 11.4 - 13.8 % 07/31/2024 1:28 AM [facility] NRBC% auto 0.0 % 07/31/2024 1:28 AM [facility] NRBC Absolute <0.01 <0.01 x10(3)/mc L 07/31/2024 1:28 AM [facility] Neutrophil % 79.7 % 07/31/2024 1:28 AM [facility] Neutrophil Absolute (ANC) - Automated 8.17(H) 1.70 - 6.10 x10(3)/mc L 07/31/2024 1:28 AM [facility] Lymph % 12.8 % 07/31/2024 1:28 AM [facility] Lymph Absolute 1.31 0.90 - 3.20 x10(3)/mc L 07/31/2024 1:28 AM [facility] Monocyte % 6.9 % 07/31/2024 1:28 AM [facility] Monocyte Absolute 0.71 0.30 - 0.90 x10(3)/mc L 07/31/2024 1:28 AM [facility] Eos % 0.1 % 07/31/2024 1:28 AM [facility] Eos Absolute <0.04 0.00 - 0.40 x10(3)/mc L 07/31/2024 1:28 AM EST [facility] Basophil % 0.3 % 07/31/2024 1:28 AM EST [facility] Baso Absolute <0.04 0.00 - 0.10 x10(3)/mc L 07/31/2024 1:28 AM EST [facility] Immature Gran % 0.2 % 1:28 AM EST [facility] Immature Gran Absolute <0.04 0.00 - 0.04 x10(3)/mc L 07/31/2024 1:28 AM EST [facility] Blood VENOUS BLOOD SPECIMEN / Unknown Venipuncture / Unknown 07/31/2024 1:08 AM EST 07/31/2024 1:18 AM EST Bridgette Stauffer MD HEMATOLOGY ORDERABLE S Performing Organization Address City/[facility]/ZIP Co de Phone Number [facility] [place] [address] * Magnesium (07/31/2024 1:08 AM EST) Magnesium 0.89 0.69 - 1.07 mMol/L 07/31/2024 1:46 AM EST [facility] Blood VENOUS BLOOD SPECIMEN / Unknown Venipuncture / Unknown 07/31/2024 1:08 AM EST 07/31/2024 1:18 AM EST Bridgette Stauffer MD CHEMISTRY ORDERABLES [facility] [place] [address] * (ABNORMAL) Basic Metabolic Panel (07/31/2024 1:08 AM EST) Glucose 97 65 - 199 mg/dL 07/31/2024 1:46 AM EST [facility] Comment:Glucose Concentratio n >=200 mg/dL plus symptoms is consistent with Diabetes Mellitus. Blood Urea Nitrogen 11 10 - 20 mg/dL 07/31/2024 1:46 AM [facility] Creatinine 0.96 0.80 - 1.50 mg/dL 07/31/2024 1:46 AM EST [facility] Sodium 140 135 - 145 mMol/L 07/31/2024 1:46 AM [facility] Potassium 4.1 3.5 - 5.0 mMol/L 07/31/2024 1:46 AM EST [facility] Chloride 110(H) 98 - 107 mMol/L 07/31/2024 1:46 AM [facility] Carbon Dioxide 24 22 - 31 mMol/L 07/31/2024 1:46 AM [facility] Anion Gap 6 5 - 15 mMol/L 07/31/2024 1:46 AM [facility] Calcium 7.7(L) 8.5 - 10.5 mg/dL 07/31/2024 1:46 AM [facility] Est Glomerular Filtration Rate - Male 84 mL/min/1. 73 m?? 07/31/2024 1:46 AM [facility] Comment: This patient's estimated GFR [...] AM EST Bridgette Stauffer MD CHEMISTRY ORDERABLES [facility] [place] [address] * (ABNORMAL) Hepatic Function Panel (07/31/2024 1:08 AM EST) Albumin 3.1(L) 3.2 - 5.2 g/dL 07/31/2024 1:46 AM [facility] Aspartate Aminotransferase 192(H) <=39 unit/L 07/31/2024 1:46 AM [facility] Alanine Aminotransferase 59(H) 0 - 55 unit/L 07/31/2024 1:46 AM [facility] Alkaline Phosphatase 46 40 - 130 unit/L 07/31/2024 1:46 AM [facility] Bilirubin, Total 0.4 <=1.3 mg/dL 07/31/2024 1:46 AM [facility] Bilirubin, Direct <0.2 0.0 - 0.3 mg/dL 07/31/2024 1:46 AM [facility] Protein, Total 5.0(L) 6.1 - 8.0 g/dL 07/31/2024 1:46 AM [facility] Blood VENOUS BLOOD SPECIMEN / Unknown Venipuncture / Unknown 07/31/2024 1:08 AM EST 07/31/2024 1:18 AM EST Krystal Parker MD CHEMISTRY ORDERABLES Performing Organization Address City/[facility] Co de Phone Number [facility] [place] [address] * POC, GLUCOSE (07/30/2024 8:03 PM EST) Glucometer, POC 86 65 - 199 mg/dL 07/30/2024 8:03 PM [facility] Comment:Supplemental ranges: <140 mg/dL before meals <180 mg/dL all other times of the day. Blood CAPILLARY BLOOD / Unknown 07/30/2024 8:03 PM EST 07/30/2024 8:03 PM EST Krystal Parker MD POINT OF CARE TEST O RDERABLES [facility] [place] [address] * Potassium (07/30/2024 8:03 PM EST) Potassium 3.8 3.5 - 5.0 mMol/L 07/30/2024 9:13 PM EST [facility] Blood VENOUS BLOOD SPECIMEN / Unknown Venipuncture / Unknown 07/30/2024 8:03 PM EST 07/30/2024 8:22 PM EST Jay Silverio MD CHEMISTRY ORDERABL ES Performing Organization Address [facility] Co de Phone Number [facility] [place] [address] * POC, GLUCOSE (07/30/2024 6:23 PM EST) Glucometer, POC 93 65 - 199 mg/dL 07/30/2024 6:24 PM EST [facility] Comment:Supplemental ranges: <140 mg/dL before meals <180 mg/dL all other times of the day. Blood CAPILLARY BLOOD / Unknown 07/30/2024 6:23 PM EST 07/30/2024 6:24 PM EST Krystal Parker MD POINT OF CARE TEST O RDERABLES Performing Organization Address City/[facility]/ZIP Co de Phone Number [facility] [place] [address] * POC, GLUCOSE (07/30/2024 5:08 PM EST) Glucometer, POC 78 65 - 199 mg/dL 07/30/2024 5:08 PM EST [facility] Comment:Supplemental ranges: <140 mg/dL before meals <180 mg/dL all other times of the day. Blood CAPILLARY BLOOD / Unknown 07/30/2024 5:08 PM EST 07/30/2024 5:08 PM EST Krystal Parker MD POINT OF CARE TEST O RDERABLES Performing Organization Address [facility]/ZIP Co de Phone Number [facility] [place] [address] * (ABNORMAL) Phosphorus (07/30/2024 3:08 PM EST) Phosphorus 2.1(L) 2.5 - 4.5 mg/dL 07/30/2024 3:58 PM EST [facility] Blood VENOUS BLOOD SPECIMEN / Unknown Venipuncture / Unknown 07/30/2024 3:08 PM EST 07/30/2024 3:12 PM EST Jay Silverio MD CHEMISTRY ORDERABL ES Performing Organization Address [facility] Co de Phone Number [facility] [place] [address] * Magnesium (07/30/2024 3:08 PM EST) Magnesium 0.90 0.69 - 1.07 mMol/L 07/30/2024 3:58 PM EST [facility] Blood VENOUS BLOOD SPECIMEN / Unknown Venipuncture / Unknown 07/30/2024 3:08 PM EST 07/30/2024 3:12 PM EST Jay Silverio MD CHEMISTRY ORDERABL ES Performing Organization Address [facility]/ZIP Co de Phone Number [facility] [place] [address] * (ABNORMAL) Basic Metabolic Panel (07/30/2024 3:08 PM EST) Glucose 105 65 - 199 mg/dL 07/30/2024 4:17 PM EST [facility] Comment:Glucose Concentratio n >=200 mg/dL plus symptoms is consistent with Diabetes Mellitus. Blood Urea Nitrogen 13 10 - 20 mg/dL 07/30/2024 4:17 PM EST [facility] Creatinine 1.01 0.80 - 1.50 mg/dL 07/30/2024 4:17 PM EST [facility] Sodium 141 135 - 145 mMol/L 07/30/2024 4:17 PM EST [facility] Potassium 3.4(L) 3.5 - 5.0 mMol/L 07/30/2024 4:17 PM [facility] Chloride 109(H) 98 - 107 mMol/L 07/30/2024 4:17 PM [facility] Carbon Dioxide 21(L) 22 - 31 mMol/L 07/30/2024 4:17 PM [facility] Anion Gap 11 5 - 15 mMol/L 07/30/2024 4:17 PM [facility] Calcium 7.9(L) 8.5 - 10.5 mg/dL 07/30/2024 4:17 PM [facility] Est Glomerular Filtration Rate - Male 79 mL/min/1. 73 m?? 07/30/2024 4:17 PM [facility] Comment: This patient's estimated GFR [...] EST Jay Silverio MD CHEMISTRY ORDERABL ES [facility] [place] [address] * ECHO LMTD W CONTRAST W LMTD SPEC DOPP COLOR DOPP (07/30/2024 11:42 AM EST) Anatomical Region Laterality Modality Cardiac Other 07/30/2024 10:2 2 AM EST Narrative 07/30/2024 12:34 PM EST [address] [place] [address] ? Echocardiogram Report Name: KOREY MONTOYA ? Study Date: 07/30/2024 10:22 AMBP: 124/66 mmHg : 1950 ? Height: 168 cm ? Account: [id number] Age: 74 yrs ? Weight: 65 kg Gender: Male ?BSA: 1.7 m2 Ordering Physician: Jay Silverio MD Referring Physician: CHAPARRO FERRERA Performed By: OMERO Millan Reason For Study: ST elevation myocardial infarction involving left anterior descending (LAD) coronary artery Interpreting Fellow: Ivan Hernandez. Exam Location: [facility]. Interpretation Summary Left ventricle is severely [...] Compared to the overnight study by the messenger floorperson fellow the impella position is stable. 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 Procedure Limited - 37772. Image enhancement Definity was used for both [...] Note Kathleen Banda MD - 07/30/2024 [address] [place] [address] Echocardiogram Report Name: KOREY MONTOYA Study Date: 410:22 AMBP: 124/66 mmHg : 1950 Height: 168 cm Account: [id number] Age: 74 yrs Weight: 65 kg Gender: Male BSA: 1.7 m2 Ordering Physician: Jay Silverio MD Referring Physician: CHAPARRO FERRERA Performed By: OMERO Millan Reason For Study: ST elevation myocardial infarction involving leftanterior descending (LAD) coronary artery Interpreting Fellow: Ivan Hernandez. Exam Location: [facility]. Interpretation Summary Left ventricle is severely [...] Compared to the overnight study by the messenger floorperson fellow the impella positionis stable. The global left ventricular systolic function has improvedpredominantly via recruitment outside the LAD territory which remains akinetic. Procedure Limited - 83267. Image enhancement Definity was used for both [...] - 199 mg/dL 07/30/2024 11:17 AM EST [facility] Comment:Supplemental ranges: <140 mg/dL before meals <180 mg/dL all other times of the day. Blood CAPILLARY BLOOD / Unknown 07/30/2024 11:17 AM EST 07/30/2024 11:17 AM EST Jay Silverio MD POINT OF CARE TEST ORDERABLES [facility] [place] [address] * (ABNORMAL) Blood Gas, Arterial POC (07/30/2024 8:16 AM EST) pH, Arterial 7.44 7.35 - 7.45 07/30/2024 8:17 AM EST [facility] PCO2, Arterial 29(L) 35 - 45 mmHg 07/30/2024 8:17 AM EST [facility] PO2, Arterial 109(H) 85 - 104 mmHg 07/30/2024 8:17 AM EST [facility] Bicarbonate, Arterial 19.4(L) 20.0 - 26.0 mmol/L 07/30/2024 8:17 AM [facility] Base Excess, Arterial -4.7(L) -3.0 - 3.0 mmol/L 07/30/2024 8:17 AM [facility] Hemoglobin, Arterial 12.2(L) 13.7 - 16.5 g/dL 07/30/2024 8:17 AM [facility] Oxyhemoglobin, Arterial 97.1(H) 94.0 - 97.0 % 07/30/2024 8:17 AM [facility] Carboxyhemoglob in, Arterial 1.0 % 07/30/2024 8:17 AM [facility] Comment: Nonsmokers: 0.5-1.5% COHB ?? Smokers: Variable ??but usually less than 10% ?? Toxic: 20-30% COHB ?? Lethal: Greater than 60% COHB Methemoglobin, Arterial 0.1 <=1.5 % 07/30/2024 8:17 AM [facility] Sodium, Arterial 132(L) 135 - 145 mmol/L 07/30/2024 8:17 AM [facility] Potassium, Arterial 3.9 3.5 - 5.0 mmol/L 07/30/2024 8:17 AM [facility] Chloride, Arterial 105 98 - 107 mmol/L 07/30/2024 8:17 AM [facility] Lactate, Arterial 1.2 0.5 - 2.2 mmol/L 07/30/2024 8:17 AM [facility] Fraction of Inspired Oxygen 21 % 07/30/2024 8:17 AM [facility] PF Ratio 519 Ratio 07/30/2024 8:17 AM [facility] Comment:PF ratio calculated using the non-temperature corrected pO2 result. IONIZED CALCIUM, ARTERIAL 1.15 1.15 - 1.33 mmol/L 07/30/2024 8:17 AM [facility] Blood ARTERIAL BLOOD / Unknown 07/30/2024 8:16 AM EST 07/30/2024 8:17 AM EST Jay Silverio MD POINT OF CARE TEST ORDERABLES [facility] [place] [address] * (ABNORMAL) Troponin - Single (07/30/2024 8:09 AM EST) Troponin-T, High Sensitivity 8,651(H) <=22 ng/L 07/30/2024 9:06 AM EST [facility] Comment: This patient's troponin T [...] troponin value can be found in the [facility] Test Catalog Troponin - [email or web address]/catalogs/565/files/84149 Reference: Fourth [place] Definition of Myocardial Infarction. Journal of the [place] [employer] 2018;72:6734-5623 Blood VENOUS BLOOD SPECIMEN / Unknown Venipuncture / Unknown 07/30/2024 8:09 AM EST 07/30/2024 8:26 AM EST Jay Silverio MD CHEMISTRY ORDERABL ES Performing Organization Address City/[facility]/ZIP Co de Phone Number [facility] [place] [address] * POC, GLUCOSE (07/30/2024 7:40 AM EST) [facility] Glucometer, POC 111 65 - 199 mg/dL 07/30/2024 7:40 AM [facility] Comment:Supplemental ranges: <140 mg/dL before meals <180 mg/dL all other times of the day. Blood CAPILLARY BLOOD / Unknown 07/30/2024 7:40 AM EST 07/30/2024 7:40 AM EST Jay Silverio MD POINT OF CARE TEST ORDERABLES [facility] [place] [address] * (ABNORMAL) CBC (with Diff) (07/30/2024 2:11 AM EST) [facility] White Blood Cell 11.25(H) 4.00 - 9.50 x10(3)/mc L 07/30/2024 2:33 AM [facility] Red Blood Cell 4.50(L) 4.58 - 5.54 x10(6)/mc L 07/30/2024 2:33 AM [facility] Hemoglobin 12.2(L) 13.7 - 16.5 g/dL 07/30/2024 2:33 AM [facility] Hematocrit 37.1(L) 40.5 - 48.5 % 07/30/2024 2:33 AM [facility] Mean Cell Volume 82.4(L) 82.9 - 93.1 fL 07/30/2024 2:33 AM [facility] Mean Cell Hemoglobin 27.1(L) 27.5 - 32.1 pg 07/30/2024 2:33 AM [facility] Mean Cell Hemoglobin Concentration 32.9 32.0 - 35.7 g/dL 07/30/2024 2:33 AM [facility] Platelet 166 145 - 357 x10(3)/mc L 07/30/2024 2:33 AM [facility] Mean Platelet Volume 10.6 7.6 - 12.9 fL 07/30/2024 2:33 AM [facility] RDW Standard Deviation 44.6 36.0 - 45.0 fL 07/30/2024 2:33 AM [facility] RDW coefficient of variation 14.6(H) 11.4 - 13.8 % 07/30/2024 2:33 AM [facility] NRBC% auto 0.0 % 07/30/2024 2:33 AM [facility] NRBC Absolute <0.01 <0.01 x10(3)/mc L 07/30/2024 2:33 AM [facility] Neutrophil % 88.9 % 07/30/2024 2:33 AM [facility] Neutrophil Absolute (ANC) - Automated 10.00(H) 1.70 - 6.10 x10(3)/mc L 07/30/2024 2:33 AM [facility] Lymph % 5.1 % 07/30/2024 2:33 AM [facility] Lymph Absolute 0.57(L) 0.90 - 3.20 x10(3)/mc L 07/30/2024 2:33 AM [facility] Monocyte % 5.4 % 07/30/2024 2:33 AM [facility] Monocyte Absolute 0.61 0.30 - 0.90 x10(3)/mc L 07/30/2024 2:33 AM [facility] Eos % 0.0 % 07/30/2024 2:33 AM [facility] Eos Absolute <0.04 0.00 - 0.40 x10(3)/mc L 07/30/2024 2:33 AM [facility] Basophil % 0.2 % 07/30/2024 2:33 AM [facility] Baso Absolute <0.04 0.00 - 0.10 x10(3)/mc L 07/30/2024 2:33 AM [facility] Immature Gran % 0.4 % 2:33 AM EST [facility] Immature Gran Absolute 0.05(H) 0.00 - 0.04 x10(3)/mc L 07/30/2024 2:33 AM [facility] Blood VENOUS BLOOD SPECIMEN / Unknown Venipuncture / Unknown 07/30/2024 2:11 AM EST 07/30/2024 2:22 AM EST Bridgette Stauffer MD HEMATOLOGY ORDERABLE S Performing Organization Address City/[facility]/ZIP Co de Phone Number [facility] [place] [address] * Magnesium (07/30/2024 2:11 AM EST) Pathologist [facility] Magnesium 1.01 0.69 - 1.07 mMol/L 07/30/2024 2:51 AM [facility] Blood VENOUS BLOOD SPECIMEN / Unknown Venipuncture / Unknown 07/30/2024 2:11 AM EST 07/30/2024 2:22 AM EST Bridgette Stauffer MD CHEMISTRY ORDERABLES Performing Organization Address City/[facility] Co de Phone Number [facility] [place] [address] * (ABNORMAL) Basic Metabolic Panel (07/30/2024 2:11 AM EST) Pathologist [facility] Glucose 190 65 - 199 mg/dL 07/30/2024 2:51 AM [facility] Comment:Glucose Concentratio n >=200 mg/dL plus symptoms is consistent with Diabetes Mellitus. Blood Urea Nitrogen 15 10 - 20 mg/dL 07/30/2024 2:51 AM [facility] Creatinine 0.88 0.80 - 1.50 mg/dL 07/30/2024 2:51 AM [facility] Sodium 135 135 - 145 mMol/L 07/30/2024 2:51 AM [facility] Potassium 4.9 3.5 - 5.0 mMol/L 07/30/2024 2:51 AM EST [facility] Chloride 105 98 - 107 mMol/L 07/30/2024 2:51 AM [facility] Carbon Dioxide 19(L) 22 - 31 mMol/L 07/30/2024 2:51 AM [facility] Anion Gap 11 5 - 15 mMol/L 07/30/2024 2:51 AM [facility] Calcium 7.7(L) 8.5 - 10.5 mg/dL 07/30/2024 2:51 AM [facility] Est Glomerular Filtration Rate - Male 91 mL/min/1. 73 m?? 07/30/2024 2:51 AM [facility] Comment: This patient's estimated GFR [...] AM EST Bridgette Stauffer MD CHEMISTRY ORDERABLES [facility] [place] [address] * (ABNORMAL) Cooximetry, POC (07/30/2024 1:00 AM EST) pO2, Coox 28 mmHg 07/30/2024 1:03 AM [facility] Hemoglobin, Coox 12.7(L) 13.7 - 16.5 g/dL 07/30/2024 1:03 AM [facility] Oxyhemoglobin, Coox 54.9 % 07/30/2024 1:03 AM [facility] Carboxyhemoglo bin, Coox 1.0 % 07/30/2024 1:03 AM [facility] Comment: Nonsmokers: 0.5-1.5% COHB ?? Smokers: Variable ??but usually less than 10% ?? Toxic: 20-30% COHB ?? Lethal: Greater than 60% COHB Methemoglobin, Coox 0.0 <=1.5 % 07/30/2024 1:03 AM [facility] Blood (Mixed Venous) 07/30/2024 1:00 AM EST 07/30/2024 1:03 AM EST Jay Silverio MD POINT OF CARE TEST ORDERABLES Performing Organization Address City/State/[facility] Co de Phone Number [facility] [place] [address] * (ABNORMAL) Blood Gas, Arterial POC (07/30/2024 12:57 AM EST) pH, Arterial 7.38 7.35 - 7.45 07/30/2024 12:58 AM [facility] PCO2, Arterial 34(L) 35 - 45 mmHg 07/30/2024 12:58 AM [facility] PO2, Arterial 141(H) 85 - 104 mmHg 07/30/2024 12:58 AM [facility] Bicarbonate, Arterial 19.5(L) 20.0 - 26.0 mmol/L 07/30/2024 12:58 AM [facility] Base Excess, Arterial -5.6(L) -3.0 - 3.0 mmol/L 07/30/2024 12:58 AM [facility] Hemoglobin, Arterial 13.0(L) 13.7 - 16.5 g/dL 07/30/2024 12:58 AM [facility] Oxyhemoglobin, Arterial 98.4(H) 94.0 - 97.0 % 07/30/2024 12:58 AM [facility] Carboxyhemoglobin , Arterial 0.4 % 07/30/2024 12:58 AM [facility] Comment: Nonsmokers: 0.5-1.5% COHB ?? Smokers: Variable ??but usually less than 10% ?? Toxic: 20-30% COHB ?? Lethal: Greater than 60% COHB Methemoglobin, Arterial 0.1 <=1.5 % 07/30/2024 12:58 AM [facility] Sodium, Arterial 130(L) 135 - 145 mmol/L 07/30/2024 12:58 AM [facility] Potassium, Arterial 4.5 3.5 - 5.0 mmol/L 07/30/2024 12:58 AM [facility] Chloride, Arterial 104 98 - 107 mmol/L 07/30/2024 12:58 AM [facility] Lactate, Arterial 1.3 0.5 - 2.2 mmol/L 07/30/2024 12:58 AM [facility] Flow Rate 2.0 L/min 07/30/2024 12:58 AM [facility] IONIZED CALCIUM, ARTERIAL 1.12(L) 1.15 - 1.33 mmol/L 07/30/2024 12:58 AM [facility] Glucose, Arterial 184 65 - 199 mg/dL 07/30/2024 12:58 AM [facility] Comment:Glucose Concentratio n >=200 mg/dL plus symptoms is consistent with Diabetes Mellitus. Blood ARTERIAL BLOOD / Unknown 07/30/2024 12:57 AM EST 07/30/2024 12:58 AM EST Jay Silverio MD POINT OF CARE TEST ORDERABLES [facility] [place] [address] * (ABNORMAL) Troponin - Single (07/29/2024 10:31 PM EST) Troponin-T, High Sensitivity >10,000(H ) <=22 ng/L 07/29/2024 11:03 PM EST [facility] Comment: This patient's troponin T [...] troponin value can be found in the [facility] Test Catalog Troponin - [email or web address]://[email or web address]-.testcatalog.org/catalogs/565/files/22513 Reference: Fourth [place] Definition of Myocardial Infarction. Journal of the [place] [employer] 2018;72:7618-8694 Blood VENOUS BLOOD SPECIMEN / Unknown Venipuncture / Unknown 07/29/2024 10:31 PM EST 07/29/2024 10:36 PM EST Yrn Ward MD CHEMISTRY ORDERABL ES [facility] [place] [address] * Potassium (07/29/2024 8:11 PM EST) Potassium 4.1 3.5 - 5.0 mMol/L 07/29/2024 8:52 PM EST [facility] Blood VENOUS BLOOD SPECIMEN / Unknown Venipuncture / Unknown 07/29/2024 8:11 PM EST 07/29/2024 8:16 PM EST Jay Silverio MD CHEMISTRY ORDERABL ES [facility] [place] [address] * (ABNORMAL) Troponin - Single (07/29/2024 8:11 PM EST) Troponin-T, High Sensitivity >10,000(H ) <=22 ng/L 07/29/2024 8:52 PM EST [facility] Comment: This patient's troponin T [...] troponin value can be found in the [facility] Test Catalog Troponin - https://[facility].testcatalog.org/catalogs/565/files/66555 Reference: Fourth [place] Definition of Myocardial Infarction. Journal of the [place] College [employer]iology 2018;72:4299-7622 Blood VENOUS BLOOD SPECIMEN / Unknown Venipuncture / Unknown 07/29/2024 8:11 PM EST 07/29/2024 8:16 PM EST Jay Silverio MD CHEMISTRY ORDERABL ES [facility] [place] [address] * (ABNORMAL) Phosphorus (07/29/2024 8:11 PM EST) Phosphorus 2.1(L) 2.5 - 4.5 mg/dL 07/29/2024 8:52 PM EST [facility] Blood VENOUS BLOOD SPECIMEN / Unknown Venipuncture / Unknown 07/29/2024 8:11 PM EST 07/29/2024 8:16 PM EST Jay Silverio MD CHEMISTRY ORDERABL ES Performing Organization Address City/[facility]/ZIP Co de Phone Number [facility] [place] [address] * POC, GLUCOSE (07/29/2024 8:09 PM EST) Glucometer, POC 142 65 - 199 mg/dL 07/29/2024 8:09 PM EST [facility] Comment:Supplemental ranges: <140 mg/dL before meals <180 mg/dL all other times of the day. Blood CAPILLARY BLOOD / Unknown 07/29/2024 8:09 PM EST 07/29/2024 8:09 PM EST Jay Silverio MD POINT OF CARE TEST ORDERABLES Performing Organization Address City/[facility]/ZIP Co de Phone Number [facility] [place] [address] * ABORH RECHECK (07/29/2024 6:43 PM EST) ABORH Recheck AB POSITIVE 07/29/2024 10:13 PM EST [facility] Blood VENOUS BLOOD SPECIMEN / Unknown Venipuncture / Unknown 07/29/2024 6:43 PM EST 07/29/2024 7:15 PM EST Jay Silverio MD BLOOD BANK LAB ORD ERABLES Performing Organization Address City/[facility]/ZIP Co de Phone Number [facility] [place] [address] * POC, GLUCOSE (07/29/2024 5:57 PM EST) Glucometer, POC 166 65 - 199 mg/dL 07/29/2024 5:57 PM EST [facility] Comment:Supplemental ranges: <140 mg/dL before meals <180 mg/dL all other times of the day. Blood CAPILLARY BLOOD / Unknown 07/29/2024 5:57 PM EST 07/29/2024 5:57 PM EST Jay Silverio MD POINT OF CARE TEST ORDERABLES Performing Organization Address City/[facility]/ZIP Co de Phone Number [facility] [place] [address] * Type and screen ([facility]/CGP/MAGALIE) (07/29/2024 5:56 PM EST) [facility] ABORH Type AB POSITIVE 07/29/2024 9:44 PM EST [facility] PATIENT HISTORY Not Found 07/29/2024 9:44 PM EST [facility] Expires at [id number] on: 08/01/2024 07/29/2024 9:44 PM EST [facility] ANTIBODY SCREEN AUTOMATED Negative 07/29/2024 9:44 PM EST [facility] T&S only valid at [facility] 07/29/2024 9:44 PM EST [facility] Blood VENOUS BLOOD SPECIMEN / Unknown Venipuncture / Unknown 07/29/2024 5:56 PM EST 07/29/2024 6:07 PM EST Narrative [facility] - 07/29/2024 9:44 PM EST This Type and Screen result is only valid at the [facility] Jay Silverio MD BLOOD BANK LAB ORD ERABLES Performing Organization Address City/[facility]/ZIP Co de Phone Number [facility] [place] [address] * (ABNORMAL) Troponin - Single (07/29/2024 4:52 PM EST) [facility] Troponin-T, High Sensitivity >10,000(H ) <=22 ng/L 07/29/2024 5:25 PM EST [facility] Comment: This patient's troponin T [...] troponin value can be found in the [facility] Test Catalog Troponin - https://[email or web address]-.testcatalog.org/catalogs/565/files/29810 Reference: Fourth [place] Definition of Myocardial Infarction. Journal of the [place] [employer] 2018;72:3293-3851 Blood VENOUS BLOOD SPECIMEN / Unknown Venipuncture / Unknown 07/29/2024 4:52 PM EST 07/29/2024 4:57 PM EST Jay Silverio MD CHEMISTRY ORDERABL ES Performing Organization Address City/State/[facility] [place] [address] * EKG 12 Lead (07/29/2024 4:21 PM EST) Ventricular rate 72 BPM MUSE SYSTEM Atrial Rate 72 BPM MUSE SYSTEM P-R Interval 168 ms MUSE SYSTEM QRS Duration 82 ms MUSE SYSTEM Q-T Interval 392 ms MUSE SYSTEM QTC Calculated (Bezet) 429 ms MUSE SYSTEM Calculated P [place] 71 degrees MUSE SYSTEM Calculated R [place] 77 degrees MUSE SYSTEM Calculated T [place] 28 degrees MUSE SYSTEM INTERPRETATION Sinus rhythm with Premature supraventricular complexes and Occasional Premature ventricular complexes Low voltage QRS 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) Lateral injury pattern ACUTE MT / STEMI Abnormal ECG When compared with [...] 7.37 7.35 - 7.45 07/29/2024 4:22 PM [facility] PCO2, Arterial 36 35 - 45 mmHg 07/29/2024 4:22 PM [facility] PO2, Arterial 71(L) 85 - 104 mmHg 07/29/2024 4:22 PM [facility] Bicarbonate, Arterial 20.4 20.0 - 26.0 mmol/L 07/29/2024 4:22 PM [facility] Base Excess, Arterial -4.8(L) -3.0 - 3.0 mmol/L 07/29/2024 4:22 PM [facility] Hemoglobin, Arterial 12.2(L) 13.7 - 16.5 g/dL 07/29/2024 4:22 PM [facility] Oxyhemoglobin, Arterial 93.8(L) 94.0 - 97.0 % 07/29/2024 4:22 PM [facility] Carboxyhemoglobin , Arterial 0.5 % 07/29/2024 4:22 PM [facility] Comment: Nonsmokers: 0.5-1.5% COHB ?? Smokers: Variable ??but usually less than 10% ?? Toxic: 20-30% COHB ?? Lethal: Greater than 60% COHB Methemoglobin, Arterial 0.3 <=1.5 % 07/29/2024 4:22 PM [facility] Sodium, Arterial 134(L) 135 - 145 mmol/L 07/29/2024 4:22 PM [facility] Potassium, Arterial 4.2 3.5 - 5.0 mmol/L 07/29/2024 4:22 PM [facility] Chloride, Arterial 107 98 - 107 mmol/L 07/29/2024 4:22 PM [facility] Lactate, Arterial 1.5 0.5 - 2.2 mmol/L 07/29/2024 4:22 PM [facility] Fraction of Inspired Oxygen 21 % 07/29/2024 4:22 PM [facility] PF Ratio 338 Ratio 07/29/2024 4:22 PM [facility] Comment:PF ratio calculated using the non-temperature corrected pO2 result. IONIZED CALCIUM, ARTERIAL 1.12(L) 1.15 - 1.33 mmol/L 07/29/2024 4:22 PM [facility] Glucose, Arterial 181 65 - 199 mg/dL 07/29/2024 4:22 PM [facility] Comment:Glucose Concentratio n >=200 mg/dL plus symptoms is consistent with Diabetes Mellitus. Blood ARTERIAL BLOOD / Unknown 07/29/2024 4:21 PM EST 07/29/2024 4:22 PM EST Jay Silverio MD POINT OF CARE TEST ORDERABLES Performing Organization Address City/[facility]/ZIP Co de Phone Number [facility] [place] [address] * POC, GLUCOSE (07/29/2024 4:19 PM EST) [facility] Signature Glucometer, POC 185 65 - 199 mg/dL 07/29/2024 4:19 PM [facility] Comment:Supplemental ranges: <140 mg/dL before meals <180 mg/dL all other times of the day. Blood CAPILLARY BLOOD / Unknown 07/29/2024 4:19 PM EST 07/29/2024 4:19 PM EST Jay Silverio MD POINT OF CARE TEST ORDERABLES [facility] [place] [address] * Blood culture (07/29/2024 4:08 PM EST) Blood Culture No growth at 120 hours 08/03/2024 5:01 PM EST [facility] Blood VENOUS BLOOD SPECIMEN / Unknown Venipuncture / Unknown 07/29/2024 4:08 PM EST 07/29/2024 4:15 PM EST Jay Silverio MD MICROBIOLOGY - BLO OD ORDERABLES Performing Organization Address City/[facility] Co de Phone Number [facility] [place] [address] * Blood culture (07/29/2024 4:08 PM EST) Blood Culture No growth at 120 hours 08/03/2024 5:01 PM EST [facility] Blood VENOUS BLOOD SPECIMEN / Unknown Venipuncture / Unknown 07/29/2024 4:08 PM EST 07/29/2024 4:26 PM EST Jay Silverio MD MICROBIOLOGY - BLO OD ORDERABLES Performing Organization Address [facility] Co de Phone Number [facility] [address] * XR Chest One View (07/29/2024 2:30 PM EST) WORKSTATION ID [id number] RAD Anatomical Region Laterality Modality Chest N/A [...] who have questions please contact the health life care planner that requested your imaging first. ? Narrative [...] patients who have questions please contactthe health life care planner that requested your imaging first. Vahe Marvin MD IMG DX ORDERABLES * (ABNORMAL) APTT (07/29/2024 2:03 PM EST) Partial Thromboplastin Time >160(HHH) 25 - 37 sec 07/29/2024 2:56 PM EST [facility] Blood VENOUS BLOOD SPECIMEN / Unknown Venipuncture / Unknown 07/29/2024 2:03 PM EST 07/29/2024 2:13 PM EST Vahe Marvin MD HEMATOLOGY ORDERABLE S Performing Organization Address City/[facility]/ZIP Co de Phone Number [facility] [place] [address] * (ABNORMAL) Prothrombin Time (07/29/2024 2:03 PM EST) Prothrombin Time 14.2(H) 9.4 - 12.5 sec 07/29/2024 2:56 PM EST [facility] International Normalization Ratio 1.3 <=4.9 07/29/2024 2:56 PM EST [facility] Comment: An INR < 2.0 [...] MD HEMATOLOGY ORDERABLE S Performing Organization Address City/[facility]/ZIP Co de Phone Number [facility] [place] [address] * CRP, acute inflammation (07/29/2024 2:03 PM EST) C-Reactive Protein <3.0 <=4.9 mg/L 07/29/2024 2:52 PM EST [facility] Blood VENOUS BLOOD SPECIMEN / Unknown Venipuncture / Unknown 07/29/2024 2:03 PM EST 07/29/2024 2:14 PM EST Vahe Marvin MD CHEMISTRY ORDERABLES [facility] [place] [address] * Lipid Panel (Reflex Direct LDL) (07/29/2024 2:03 PM EST) [facility] Signature Cholesterol, Total 133 mg/dL 07/29/2024 2:52 PM [facility] Comment: Desirable: < 200 mg/dL Borderline High: 200 - 239 mg/dL High: > or = 240 mg/dL Triglyceride 45 mg/dL 07/29/2024 2:52 PM [facility] Comment: Normal: <150 mg/dL Borderline High: 150-199 mg/dL High: 200-499 mg/dL Very High: > or =500 mg/dL HDL Cholesterol 58 mg/dL 2:52 PM [facility] Comment:Males: High Risk: <4 0 mg/dL LDL Cholesterol 64 mg/dL 4 2:52 PM [facility] Comment: Desirable: <100 mg/dL Above Desirable: 100-129 mg/dL Borderline High: 130-159 mg/dL High: 160-189 mg/dL Very High: > or =190 mg/dL Note: LDL calculation updated to the NIH LDL formula as of 04/15/2024 Non-HDL Cholesterol 75 mg/dL 07/29/2024 2:52 PM [facility] Comment: Desirable: <130 mg/dL Above Desirable: 130-159 mg/dL Borderline High: 160-189 mg/dL High: 190-219 mg/dL Very High: > or = 220 mg/dL Blood VENOUS BLOOD SPECIMEN / Unknown Venipuncture / Unknown 07/29/2024 2:03 PM EST 07/29/2024 2:14 PM EST Narrative [facility] - 07/29/2024 2:52 PM EST [...] ACC/AHA Guidelines (most recently Rolf et al. [facility] 06/15/22): * For individuals with atherosclerotic [...] Marvin MD CHEMISTRY ORDERABLES Performing Organization Address City/[facility]/ZIP Co de Phone Number [facility] [place] [address] * TSH [place] (07/29/2024 2:03 PM EST) Thyroid Stimulating Hormone 0.70 0.27 - 4.20 mcIU/mL 07/29/2024 2:52 PM EST [facility] Blood VENOUS BLOOD SPECIMEN / Unknown Venipuncture / Unknown 07/29/2024 2:03 PM EST 07/29/2024 2:14 PM EST Vahe Marvin MD CHEMISTRY ORDERABLES Performing Organization Address [facility] Co de Phone Number [facility] [place] [address] * Hemoglobin A1c (07/29/2024 2:03 PM EST) Hemoglobin A1c 5.3 4.3 - 5.6 % 07/29/2024 2:41 PM EST [facility] Comment: Per ADA guidelines, without [...] red blood cell turnover may not be professional healthcare representative of glycemic control. Reference Interval: 4.3 - 5.6% 5.7 - 6.4%: Consistent with prediabetes >=6.5%: Consistent with diagnosis of diabetes mellitus Estimated Average Glucose 07/29/2024 2:41 PM EST [facility] Comment:Estimated Average Gl ucose not appropriate for patients over 70 years of age. Blood VENOUS BLOOD SPECIMEN / Unknown Venipuncture / Unknown 07/29/2024 2:03 PM EST 07/29/2024 2:14 PM EST [facility] - 07/29/2024 2:41 PM EST Estimated average glucose (eAG) is calculated from the equation described in: Quinten ALVES, Rikki J, [place] R, et al. ??Translating the A1C assay into estimated average glucose values. ??Diabetes Care 2008:31(8):1932-9262. Additional resources are available on the ADA website (diabetes.org). Vahe Marvin MD CHEMISTRY ORDERABLES [facility] [place] [address] * (ABNORMAL) CBC (with Diff) (07/29/2024 2:03 PM EST) White Blood Cell 19.50(H) 4.00 - 9.50 x10(3)/mc L 07/29/2024 2:18 PM EST [facility] Red Blood Cell 4.81 4.58 - 5.54 x10(6)/mc L 07/29/2024 2:18 PM [facility] Hemoglobin 13.1(L) 13.7 - 16.5 g/dL 07/29/2024 2:18 PM [facility] Hematocrit 40.1(L) 40.5 - 48.5 % 07/29/2024 2:18 PM [facility] Mean Cell Volume 83.4 82.9 - 93.1 fL 07/29/2024 2:18 PM [facility] Mean Cell Hemoglobin 27.2(L) 27.5 - 32.1 pg 07/29/2024 2:18 PM [facility] Mean Cell Hemoglobin Concentration 32.7 32.0 - 35.7 g/dL 07/29/2024 2:18 PM [facility] Platelet 236 145 - 357 x10(3)/mc L 07/29/2024 2:18 PM [facility] Mean Platelet Volume 10.6 7.6 - 12.9 fL 07/29/2024 2:18 PM [facility] RDW Standard Deviation 43.7 36.0 - 45.0 fL 07/29/2024 2:18 PM [facility] RDW coefficient of variation 14.3(H) 11.4 - 13.8 % 07/29/2024 2:18 PM [facility] NRBC% auto 0.0 % 07/29/2024 2:18 PM [facility] NRBC Absolute <0.01 <0.01 x10(3)/mc L 07/29/2024 2:18 PM [facility] Neutrophil % 93.6 % 07/29/2024 2:18 PM [facility] Neutrophil Absolute (ANC) - Automated 18.28(H) 1.70 - 6.10 x10(3)/mc L 07/29/2024 2:18 PM [facility] Lymph % 2.7 % 07/29/2024 2:18 PM [facility] Lymph Absolute 0.52(L) 0.90 - 3.20 x10(3)/mc L 07/29/2024 2:18 PM [facility] Monocyte % 2.9 % 07/29/2024 2:18 PM [facility] Monocyte Absolute 0.56 0.30 - 0.90 x10(3)/mc L 07/29/2024 2:18 PM [facility] Eos % 0.0 % 07/29/2024 2:18 PM [facility] Eos Absolute <0.04 0.00 - 0.40 x10(3)/mc L 07/29/2024 2:18 PM [facility] Basophil % 0.3 % 07/29/2024 2:18 PM [facility] Baso Absolute 0.05 0.00 - 0.10 x10(3)/mc L 07/29/2024 2:18 PM [facility] Immature Gran % 0.5 % 2:18 PM [facility] Immature Gran Absolute 0.09(H) 0.00 - 0.04 x10(3)/mc L 07/29/2024 2:18 PM EST [facility] Blood VENOUS BLOOD SPECIMEN / Unknown Venipuncture / Unknown 07/29/2024 2:03 PM EST 07/29/2024 2:13 PM EST Vahe Marvin MD HEMATOLOGY ORDERABLE S Performing Organization Address City/[facility]/ZIP Co de Phone Number [facility] [place] [address] * Phosphorus (07/29/2024 2:03 PM EST) Phosphorus 2.5 2.5 - 4.5 mg/dL 07/29/2024 2:52 PM EST [facility] Blood VENOUS BLOOD SPECIMEN / Unknown Venipuncture / Unknown 07/29/2024 2:03 PM EST 07/29/2024 2:14 PM EST Vahe Marvin MD CHEMISTRY ORDERABLES Performing Organization Address [facility] Co de Phone Number [facility] [place] [address] * Magnesium (07/29/2024 2:03 PM EST) Magnesium 0.70 0.69 - 1.07 mMol/L 07/29/2024 2:52 PM EST [facility] Blood VENOUS BLOOD SPECIMEN / Unknown Venipuncture / Unknown 07/29/2024 2:03 PM EST 07/29/2024 2:14 PM EST Vahe Marvin MD CHEMISTRY ORDERABLES Performing Organization Address [facility] Co de Phone Number [facility] [place] [address] * (ABNORMAL) Comprehensive metabolic panel (07/29/2024 2:03 PM EST) Glucose 243(H) 65 - 199 mg/dL 07/29/2024 3:11 PM [facility] Comment:Glucose Concentratio n >=200 mg/dL plus symptoms is consistent with Diabetes Mellitus. Blood Urea Nitrogen 13 10 - 20 mg/dL 07/29/2024 3:11 PM [facility] Creatinine 0.88 0.80 - 1.50 mg/dL 07/29/2024 3:11 PM [facility] Sodium 138 135 - 145 mMol/L 07/29/2024 3:11 PM [facility] Potassium 3.6 3.5 - 5.0 mMol/L 07/29/2024 3:11 PM [facility] Chloride 104 98 - 107 mMol/L 07/29/2024 3:11 PM [facility] Carbon Dioxide 19(L) 22 - 31 mMol/L 07/29/2024 3:11 PM [facility] Anion Gap 15 5 - 15 mMol/L 07/29/2024 3:11 PM [facility] Calcium 8.0(L) 8.5 - 10.5 mg/dL 07/29/2024 3:11 PM [facility] Protein, Total 6.0(L) 6.1 - 8.0 g/dL 07/29/2024 3:11 PM [facility] Albumin 3.6 3.2 - 5.2 g/dL 07/29/2024 3:11 PM [facility] Aspartate Aminotransferase 07/29/2024 3:11 PM [facility] Comment:Unable to report due to hemolysis. Alanine Aminotransferase 56(H) 0 - 55 unit/L 07/29/2024 3:11 PM [facility] Alkaline Phosphatase 58 40 - 130 unit/L 07/29/2024 3:11 PM [facility] Bilirubin, Total 0.5 <=1.3 mg/dL 07/29/2024 3:11 PM [facility] Est Glomerular Filtration Rate - Male 91 mL/min/1. 73 m?? 07/29/2024 3:11 PM EST [facility] Comment: This patient's estimated GFR [...] PM EST Vahe Marvin MD CHEMISTRY ORDERABLES [facility] [place] [address] * (ABNORMAL) Troponin - Single (07/29/2024 2:03 PM EST) Troponin-T, High Sensitivity >10,000(H ) <=22 ng/L 07/29/2024 2:52 PM EST [facility] Comment: This patient's troponin T [...] troponin value can be found in the [facility] Test Catalog Troponin - https://one-.testcatalog.org/catalogs/565/files/65964 Reference: Fourth [place] Definition of Myocardial Infarction. Journal of the [place] College [employer] 2018;72:8248-0982 Blood VENOUS BLOOD SPECIMEN / Unknown Venipuncture / Unknown 07/29/2024 2:03 PM EST 07/29/2024 2:14 PM EST Vahe Marvin MD CHEMISTRY ORDERABLES [facility] [place] [address] * (ABNORMAL) Blood Gas, Venous POC (07/29/2024 2:01 PM EST) pH, Venous 7.30(L) 7.32 - 7.42 07/29/2024 2:02 PM EST [facility] PCO2, Venous 42 38 - 58 mmHg 07/29/2024 2:02 PM [facility] PO2, Venous 39 16 - 65 mmHg 07/29/2024 2:02 PM [facility] Bicarbonate, Venous 20.1(L) 22 - 31 mmol/L 07/29/2024 2:02 PM [facility] Base Excess, Venous -6.4(L) 1.9 - 4.5 mmol/L 07/29/2024 2:02 PM [facility] Hemoglobin, Venous 14.2 13.7 - 16.5 g/dL 07/29/2024 2:02 PM [facility] Oxyhemoglobin, Venous 69.3 % 07/29/2024 2:02 PM [facility] Carboxyhemoglobin , Venous 0.8 % 07/29/2024 2:02 PM [facility] Comment: Nonsmokers: 0.5-1.5% COHB ?? Smokers: Variable ??but usually less than 10% ?? Toxic: 20-30% COHB ?? Lethal: Greater than 60% COHB Methemoglobin, Venous 0.3 <=1.5 % 07/29/2024 2:02 PM EST [facility] Sodium, Venous 137 135 - 145 mmol/L 07/29/2024 2:02 PM EST [facility] Potassium, Venous 3.6 3.5 - 5.0 mmol/L 07/29/2024 2:02 PM EST [facility] Chloride, Venous 103 98 - 107 mmol/L 07/29/2024 2:02 PM EST [facility] Glucose, Venous 229(H) 65 - 199 mg/dL 07/29/2024 2:02 PM EST [facility] Comment:Glucose Concentratio n >=200 mg/dL plus symptoms is consistent with Diabetes Mellitus. Lactate, Venous 3.1(H) 0.5 - 2.2 mmol/L 07/29/2024 2:02 PM [facility] Ionized Calcium, Venous 1.11(L) 1.15 - 1.33 mmol/L 07/29/2024 2:02 PM EST [facility] Blood VENOUS BLOOD SPECIMEN / Unknown 07/29/2024 2:01 PM EST 07/29/2024 2:02 PM EST Vahe Marvin MD POINT OF CARE TEST O RDERABLES Performing Organization Address City/State/[facility] Co de Phone Number [facility] [place] [address] * CARDIAC CATHETERIZATION (07/29/2024 1:20 PM EST) Anatomical Region Laterality Modality Other Narrative 07/29/2024 2:02 PM EST ?[facility] ? Cardiac Catheterization/Intervention Report ? Patient Name: Korey Montoya. ? Procedure Date: 07/29/2024 ? A #: [id number] ? Primary Physician: Shavonne, Vahe S ? Case #: [id number] ? File Name: [id number] ? Catheterization Order Number: [id number] ? [facility] ? Final Report [place], [place] ? Patient Name: ? Korey P. Montoya ?ID#: ?[id number] ? : ?1950 ? Procedure Date: ? July 29, 2024 ?Case #: ? [id number] ? Room: ? 5 ? Case Physician: [...] procedure was Emergent. The indication for ?the scientific laboratory supervisor visit is ACS less than or equal [...] 3.5 guiding catheter and a 3.5 Fr [facility] [place] [address] ??20 Mhz using ?Manual pullback. ??Imaging [...] A premounted 3.00 x 22 mm Jeison Bonner (LOW) was deployed ? with a maximum [...] atmospheres. ??A premounted 3.00 x 08 mm [place] Bonner (LOW) ? was deployed with a maximum [...] dose administered prior to arrival in the scientific laboratory supervisor. ?Recommended anti-platelet/anti-thrombotic regimen: ?Start aspirin 81 mg daily now and continue for 12 months then stop. ?Start clopidogrel 75 mg daily now and continue for indefinitely. ?These recommendations are made at the time of the intervention. Patient ?and provider preferences or a changing clinical situation may require ?modification of this regimen. Consult [facility] Interventional Cardiology for ?questions. ?The 1 year [...] able ?to start weaning his inotropes/vasopressors. A [place] Colette catheter was ?placed demonstrating improvement in [...] ventricular assist device insertion, right heart ?catheterization, [place] (flow directed cath) insertion, access site ?angiography, vascular ultrasound, venous line / sheath insert and vascular ?closure device. ? Vahe Marvin M.D. ? Electronically Signed by: Vahe Marvin M.D. ? Report Finalized: 07/29/2024 ??13:55 ? Report Last Ammended: 07/30/2024 ??10:15 ? Procedure Note Vahe Marvin MD - 07/30/2024 [facility] Cardiac Catheterization/Intervention Report Patient Name: Korey MontoyaToby Procedure Date: 07/29/2024 A #: [id number] Primary Physician: Vahe Marvin Case #: [id number] File Name: [id number] Catheterization Order Number: [id number] [facility] FinalReport [place], [place] Patient Name: Korey Montoya ID#:[id number] :1950 Procedure Date: July 29, 2024 Case [...] diagnostic procedure was Emergent. Theindication for the scientific laboratory supervisor visit is ACS less than or equal [...] 3.5 guiding catheter and a 3.[address] 20 Mhzusing Manual pullback. Imaging was [...] The priority for the procedure was Emergent.[facility] procedure was STEMI-Immediate PCI [...] The lesion was predilated with a 2.00mm [id number] MM balloon with a maximum inflation pressure of 12atmospheres. A premounted 3.00 x 22 mm [place] Bonner (LOW) wasdeployed with a maximum inflation pressure [...] atmospheres. A premounted 3.00 x 08 mm [place] Bonner(LOW) was deployed with a maximum inflation pressure [...] dose administered prior to arrival in the scientific laboratory supervisor. Recommended anti-platelet/anti-thrombotic regimen: Start aspirin 81 mg daily now and continue for 12 months then stop. Start clopidogrel 75 mg daily now and continue for indefinitely. These recommendations are made at the time of the intervention.Patient and provider preferences or a changing clinical situation mayrequire modification of this regimen. Consult [facility] Interventional Cardiologyfor questions. The 1 year bleeding [...] wereable to start weaning his inotropes/vasopressors. A [place] Colette catheterwas placed demonstrating improvement in his [...] ventricular assist device insertion, right heart catheterization, [place] (flow directed cath) insertion, access site angiography, vascular ultrasound, venous line / sheath insert andvascular closure device. Vahe Marvin M.D. Electronically Signed by: Vahe Marvin M.D. Report Finalized: 07/29/2024 13:55 Report Last Ammended: 07/30/2024 10:15 Vahe Marvin MD CARDIAC CATH ORDERAB LES * (ABNORMAL) BLOOD GAS, POC (07/29/2024 12:46 PM EST) Sodium, POC 139 135 - 145 mmol/L 07/30/2024 7:30 AM [facility] Potassium, POC 3.4(L) 3.5 - 5.0 mmol/L 07/30/2024 7:30 AM [facility] pH, POC 7.33(L) 7.35 - 7.45 07/30/2024 7:30 AM [facility] Ionized Calcium, POC 1.13(L) 1.15 - 1.33 mmol/L 07/30/2024 7:30 AM [facility] pCO2, POC 38 35 - 45 mmHg 07/30/2024 7:30 AM [facility] pO2, POC 94 85 - 104 mmHg 07/30/2024 7:30 AM [facility] Base Excess, POC -6.0(L) -3.0 - 3.0 mmol/L 07/30/2024 7:30 AM [facility] Hematocrit, POC 39.0(L) 40.5 - 48.5 %PCV 07/30/2024 7:30 AM [facility] Hemoglobin, POC 13.3(L) 13.7 - 16.5 g/dL 07/30/2024 7:30 AM [facility] Comment:The calculation of h emoglobin from hematocrit assumes a normal MCHC. Bicarbonate, POC 19.8(L) 20.0 - 26.0 mmol/L 07/30/2024 7:30 AM [facility] Carbon Dioxide, POC 21(L) 22 - 31 mmol/L 07/30/2024 7:30 AM [facility] Blood VENOUS BLOOD SPECIMEN / Unknown 07/29/2024 12:46 PM EST 07/30/2024 7:30 AM EST Vahe Marvin MD POINT OF CARE TEST O RDERABLES [facility] [place] [address] * (ABNORMAL) BLOOD GAS, POC (07/29/2024 12:12 PM EST) Sodium, POC 135 135 - 145 mmol/L 07/30/2024 7:30 AM [facility] Potassium, POC 3.8 3.5 - 5.0 mmol/L 07/30/2024 7:30 AM [facility] pH, POC 7.27(LLL) 7.35 - 7.45 07/30/2024 7:30 AM [facility] Ionized Calcium, POC 1.14(L) 1.15 - 1.33 mmol/L 07/30/2024 7:30 AM [facility] pCO2, POC 43 35 - 45 mmHg 07/30/2024 7:30 AM [facility] pO2, POC 131(H) 85 - 104 mmHg 07/30/2024 7:30 AM [facility] Base Excess, POC -7.0(L) -3.0 - 3.0 mmol/L 07/30/2024 7:30 AM [facility] Hematocrit, POC 36.0(L) 40.5 - 48.5 %PCV 07/30/2024 7:30 AM [facility] Hemoglobin, POC 12.2(L) 13.7 - 16.5 g/dL 07/30/2024 7:30 AM [facility] Comment:The calculation of h emoglobin from hematocrit assumes a normal MCHC. Bicarbonate, POC 19.7(L) 20.0 - 26.0 mmol/L 07/30/2024 7:30 AM [facility] Carbon Dioxide, POC 21(L) 22 - 31 mmol/L 07/30/2024 7:30 AM [facility] Blood VENOUS BLOOD SPECIMEN / Unknown 07/29/2024 12:12 PM EST 07/30/2024 7:30 AM EST Vahe Marvin MD POINT OF CARE TEST O RDERABLES [facility] [place] [address] documented in this encounter Visit Diagnoses Diagnosis [...] based off of anti-Xa levels per the [facility] Anti-Xa Algorithm and inform the [facility] attending. [...] PM EST 20 mEq 100 mL/ hr [facility] 07/30/2024 9:17 PM EST 20 mEq [...] RN) 0845 (Given - Provider: Tonya Watson, RENAE) 0934 (Given - Provider: Tonya Watson RN) [...] Routine documented in this encounter Care Teams Mill Representative Relationship Specialty Start Date End Date Alexia Mtz APRN [address] [place] [id number] PCP - General Family Medicine 07/30/24 documented as of this encounter
--- OUTSIDE RECORDS SUMMARY | 2024-08-24 11:23 | XMS_ITS | Encounter Summary ---
Author Organization [facility] Address [facility] [place] [address] Care Team Providers Care Commissary Production Supervisor Name Role Phone Yoel Artis Ute ALCALA Primary Care Provider [phone] Reason for Visit * Auth/Cert (Routine) Specialty Diagnoses / Procedures Referred By Theodore t Referred To Contact Diagnoses AIRO Procedures [employer] MILEAGE [employer] TRANSPORT AIR[facility] Referral ID Status Reason Start Date Expiration Date Visits Re quested Visits Authorized [id number] 1 1 Encounter Details Date Type Department Care Team (Latest Contact Info) Description 07/29/2024 6:32 PM EST - 07/29/2024 11:59 PM EST Hospital Encounter [facility] at [address] [phone] Arvin Becerra MD [facility] [place] [address] Discharge Disposition: Home Social History Tobacco Use Types Packs/Day Years Used Date Smoking Tobacco: Former Cigarettes Smokeless Tobacco: Never Alcohol Use Standard Drinks/Week Comments Not Currently 0 (1 standard drink = 0.6 oz pur e alcohol) [facility] Utilities Answer Date Recorded In the [...] were you homeless or living in a jail (including now)? No 07/30/2024 [facility] IPV Inpatient [...] evening. 04/17/2023 08/04/2024 nitroGLYcerin (NITROLINGUAL) 400 mcg/spray [place], Non-AerosolIndications: Proctalgia fugax,Fecal smearing,Constipation, unspecified constipation type 1 spray to anus for proctalgia fugax as needed, not to exceed once daily 12 g 06/01/2023 08/04/2024 documented as of this encounter Plan of Treatment Upcoming Encounters Date Type Department Care Team (Late st Contact Info) Description 10/01/2024 10:00 AM EST Office Visit Cardiology at [address] [phone] Mushtaq Murphy APRN documented as of this encounter Visit Diagnoses Not on filedocumented in this encounter Care Teams Commissary Production Supervisor Relationship Specialty Start Date End Date Yoel Artis APRN [address] [place] [id number] PCP - General Internal Medicine 11/18/22 07/29/24 documented as of this encounter
--- OUTSIDE RECORDS SUMMARY | 2024-08-24 11:23 | XMS_ITS | Encounter Summary ---
[place] [address] Care Team Providers Care Chocolate Temperer Name Role Phone Alexia Mtz HEAD UP OPERATOR Primary Care Provider [phone] Reason for Visit * Auth/Cert (Routine) Specialty Diagnoses / Procedures Referred By Theodore t Referred To Contact Diagnoses STEMI (ST elevation myocardial infarction) STEMI Procedures ER Vahe Lopez MD [facility] [place] [address] [facility] Referral ID Status Reason Start Date Expiration Date Visits Re quested Visits Authorized [id number] 1 1 Encounter Details Date Type Department Care Team (Late st Contact Info) Description 07/31/2024 4:45 PM EST Anesthesia Event [place] [address] Venkatesh Mauricio MD [facility] [place] [address] Anesthesia Record Procedure Summary Procedure Name Responsible [...] Right; femoral vein; hemodynamic monitoring; Placed in geotechnical laboratory technician; 08/01/24; 1420 07/29/24 1300 by Silvia Wan RN 08/01/24 1420 by Marivel English RN PIV 07/29/24; 1300; [id number] catheter system; 18 gauge; basilic vein (medial [...] drink = 0.6 oz pur e alcohol) [facility] Utilities Answer Date Recorded In the [...] any time in the past 12 m [facility], were you homeless or living in a nursing home (including now)? No 07/30/2024 IPV Inpatient Questions [...] AM EST Office Visit Cardiology at [address] [phone] Mushtaq Murphy APRN documented as of this encounter Visit Diagnoses Not on filedocumented in this encounter Care Teams Chocolate Temperer Relationship Specialty Start Date End Date Alexia Mtz, [address] [place] [address] PCP - General Family Medicine 07/30/24 documented as of this encounter
--- OUTSIDE RECORDS SUMMARY | 2024-08-24 11:23 | XMS_ITS | Encounter Summary ---
[place] [address] Care Team Providers Care Numerical Control Programmer Name Role Phone Alexia Mtz FREDRICK Primary Care Provider [phone] Reason for Visit * Auth/Cert (Routine) Specialty Diagnoses / Procedures Referred By Theodore muro Referred To Contact Diagnoses STEMI (ST elevation myocardial infarction) STEMI Procedures ER SUI Vahe Marvin MD [facility] [place] [address] [facility] Referral ID Status Reason Start Date Expiration Date Visits Re quested Visits Authorized [id number] 1 1 Encounter Details Date Type Department Care Team (Late st Contact Info) Description 07/31/2024 4:30 PM EST - 07/31/2024 5:30 PM EST [place] [id number] Maldonado Luis MD [facility] [place] [address] CARDIAC CATHETERIZATION Social History Tobacco Use Types Packs/Day Years Used Date Smoking Tobacco: Former Cigarettes Smokeless Tobacco: Never Alcohol Use Standard Drinks/Week Comments Not Currently 0 (1 standard drink = 0.6 oz pur e alcohol) [facility] Utilities Answer Date Recorded In the past 12 months has [employer] electric, gas, oil, or water company threatened [...] any time in the past 12 m [facility], were you homeless or living [...] Korey Montoya Patient Age: 74 y.o. Language: Singaporean Race: White Ethnicity: Not nor Admit date: [...] please contact your inpatient physician through the [facility] Manager Fitness . Issues afterhours and on weekends will [...] EKG. Patient transferred via air ambulance to [facility] on 07/29 for LHC and LOW to [...] EKG. Was transferred via air ambulance to [facility] for further management and LHC demonstrated 100% [...] the next year. Access was via right STUDENT ADMISSIONS CLERK and this sitewas clean, dry and intact on the day of discharge. The patient???s medications at discharge include: aspirin, statin, beta elvis, TSELLA inhibitor, Plavix and PRN nitroglycerin. # Ischemic [...] for Chest pain. Replaces: nitroGLYcerin 400 mcg/spray [place], Non-Aerosol 0.4 mg Quantity: 90 tablet Refills: [...] Refills: 0 STOPPED Medications nitroGLYcerin 400 mcg/spray [place], Non-Aerosol Commonly known as: NITROLINGUAL Replaced by: [...] of one year. After this time, your director of planning will determine if you need to continue [...] away. Stay on the phone. The emergency stave saw operator will tell you what to do. [...] appointments: During 8am-5pm Tuesday through Tuesday call [phone] to speak with a nurse in the cardiology clinic All other times call [phone] and ask to speak to the real property appraiser educational coordinator. Follow up Appointments: PCP Alexia Mtz, LEVEL VIAL SETTER [phone]. Please call to establish a follow up appointment within 1-2 weeks of discharge. Cardiology. Referral to heart failure has been sent. General Instructions None Future Appointments and Orders Future Orders Complete By Expires Referral to Cardiac Rehab [XNT638 Custom] As directed Process Instructions: If no progress note charted, please enter Clinical details in comments. Scheduling Instructions: Questions: My question or request is: STEMI, PCI- cardiac rehab at [facility] Referral to Cardiology [REF12 Custom] As [...] of one year. After this time, your director of planning will determine if you need to continue [...] away. Stay on the phone. The emergency stave saw operator will tell you what to do. [...] appointments: During 8am-5pm Tuesday through Tuesday call [phone] to speak with a nurse in the cardiology clinic All other times call [phone] and ask to speak to the real property appraiser educational coordinator. Follow up Appointments: PCP Alexia Mtz, LEVEL VIAL SETTER [phone]. Please call to establish a follow up [...] EKG. Patient transferred via air ambulance to [facility] on 07/29 for LHC and LOW to LAD for 100% occlusion Social History: Pt lives with his in a 1 level home with 2 NAOMI. 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 He [...] Total time: 35 (tef) minutes Time IN/OUT: 8106-4108 ZAIDA DUBOSE PT Pager: [phone] Physical Therapy Inpatient Rehabilitation Department * Yrn Ward MD - 08/03/2024 10:38 AM EST CV HOSPITALIST 2 - [facility] DAILY PROGRESS NOTE Page [phone] to reach a provider 04/04 Admit Date: [...] or before 29-JUL-2024) Lateral injury pattern ACUTE RI / STEMI Abnormal ECG When compared with [...] Compared to the overnight study by the educational coordinator fellow the impella position is stable. 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 [facility] 07/29/24 Conclusions: * One vessel coronary artery disease (LAD) * Mild pulmonary hypertension * Elevated pulmonary capillary wedge pressure * Successful stent insertion of the proximal LAD lesion * See Dual Antiplatelet (DAPT) Recommendations above * Successful impella placement for cardiogenic shock. Telemetry: I have personally reviewed and interpreted the telemetry from the last 24 hours. [facility] Assessment: ASSESSMENT: Korey Montoya is a 74 y.o. male w/ PMH of hypertension, HLD, and BPH who presents for chief concern of chest pain after being found to have ST elevations on EKG. Patient transferred via air ambulance to [facility] on 07/29 for LHC and LOW to [...] to be determined OT: PCP Alexia Mtz, LEVEL VIAL SETTER [phone] * Zaida Dubose, PT - 08/02/2024 2:08 PM EST Physical Therapy Evaluation Patient profile: Korey Montoya is a 74 y.o. male w/ PMH of hypertension, HLD, and BPH who presents for chief concern of chest pain after being found to have ST elevations on EKG. Patient transferred via air ambulance to [facility] on 07/29 for LHC and LOW to LAD for 100% occlusion Social History: Pt lives with his in a 1 level home with 2 NAOMI. 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 He [...] Total time: 37 (eval) minutes Time IN/OUT: 9539-1555 ZAIDA DUBOSE, PT Pager: [phone] Physical Therapy Inpatient Rehabilitation Department * Gagan [...] EKG. Patient transferred via air ambulance to [facility] on 07/29 for LHC and LOW to LAD for 100% occlusion. TTE showed apical akinesis and inferior hypokinesis with EF 20%. RHC showed elevated filling pressures. Impella placed and P-level 6 at time of transfer to [facility]. CI initially 1.97, improved to 2.2 After [...] PCP: Alexia Mtz APRN PCP phone number: [phone] Date of Admission: 07/29/2024 ( Hospital Day 4 days ) Attending:Bridgette Stauffer MD ID: Korey Montoya is a 74 y.o. male w/ PMH of hypertension, HLD, and BPH on Hospital Day4 for chief concern of chest pain after being found to have ST elevations on EKG. Patient transferred via air ambulance to [facility] on 07/29 for LHC and LOW to [...] 07/29/24 1621 PHART 7.48* 7.44 7.38 7.37 MSL1CIL 29* 29* 34* 36 PO2ART 71* 109* 141* 71* BDT3KFD 20.6 19.4* 19.5* 20.4 VBG (Venous Blood Gas) Recent Labs 07/29/24 1401 PHVEN 7.30* PO2VEN 39 LXP5KWD 20.1* Mixed Venous Sat No results for input(s): X8REIN1 in the last 168 hours. Objective: Vitals [...] 07/29/24 1621 PHART 7.48* 7.44 7.38 7.37 IWT0LGJ 29* 29* 34* 36 PO2ART 71* 109* 141* 71* CIA2FQK 20.6 19.4* 19.5* 20.4 VBG (Venous Blood Gas) Recent Labs 07/29/24 1401 PHVEN 7.30* PO2VEN 39 CZC8CTZ 20.1* Mixed Venous Sat No results for input(s): O3FEGQ6 in the last 168 hours. Microbiology: Microbiology Results (Last 30 days) Procedure Component Value Units Date/Time Blood culture [[id number]] Collected: 07/29/241607 Lab Status: Preliminary result Specimen: Blood, Venous Updated: 08/01/241700 Blood Culture No growth at 72 hours Blood culture [[id number]] Collected: 07/29/241607 Lab Status: Preliminary result Specimen: Blood, Venous Updated: 08/01/241700 Blood Culture No growth at 72 hours Imaging: Results for orders placed or performed during the hospital encounter of 07/29/24 XR Chest One View (Exam End: 07/29/2024 2:30 PM) Result Value WORKSTATION ID [id number] Impression 1. No pulmonary edema. 2. No pleural effusion. 3. No pneumothorax. Thank you for letting us participate in the care of this patient. If you are a health care provider and have any questions regarding this report, please contact the number below. For patients who have questions please contact the health caretaker grounds that requested your imaging first. Electronically signed by: Chris Candelaria MD, [facility] ([phone]), at 07/29/2024 3:21 PM TTE ( 07/30/24) [...] Compared to the overnight study by the educational coordinator fellow the impella position is stable. The [...] EKG. Patient transferred via air ambulance to [facility] on 07/29 for LHC and LOW to [...] Susannah Ornelas MD Internal Medicine, PGY-1 Cardiology, [facility] 08/02/24 12:45 PM CARDIOLOGY STAFF NOTE I [...] today). Transfer to floor. Krystal Parker MD, [facility], [facility] Staff Blue Split Trimmer physician relations manager * Gagan Catherine MD - 08/01/2024 11:12 [...] EKG. Patient transferred via air ambulance to [facility] on 07/29 for LHC and LOW to LAD for 100% occlusion. TTE showed apical akinesis and inferior hypokinesis with EF 20%. RHC showed elevated filling pressures. Impella placed and P-level 6 at time of transfer to [facility]. CI initially 1.97, improved to 2.2 After impella. Received about 3 L of fluid during procedural course. Patient initially required norepinephrine 30, epinephrine 10, and vasopressin 0.04 for hemodynamic support, which was weaned upon arrival to [facility] to norepinephrine 20and levo 0.04 N - [...] PCP: Alexia Mtz APRN PCP phone number: [phone] Date of Admission: 07/29/2024 ( Hospital Day 3 days ) Attending:Krystal Parker MD ID: Korey Montoya is a 74 y.o. male w/ PMH of hypertension, HLD, and BPH on Hospital Day3 for chief concern of chest pain after being found to have ST elevations on EKG. Patient transferred via air ambulance to [facility] on 07/29 for LHC and LOW to [...] 07/29/24 1621 PHART 7.48* 7.44 7.38 7.37 [id number] 29* 29* 34* 36 PO2ART 71* 109* 141* 71* BYH5BHB 20.6 19.4* 19.5* 20.4 VBG (Venous Blood Gas) Recent Labs 07/29/24 1401 PHVEN 7.30* PO2VEN 39 FIE9MKQ 20.1* Mixed Venous Sat No results for input(s): T4UEHZ9 in the last 168 hours. PA Catheter [...] 07/29/24 1621 PHART 7.48* 7.44 7.38 7.37 NED9WWZ 29* 29* 34* 36 PO2ART 71* 109* 141* 71* FUP3VMF 20.6 19.4* 19.5* 20.4 VBG (Venous Blood Gas) Recent Labs 07/29/24 1401 PHVEN 7.30* PO2VEN 39 TEP9MFM 20.1* Mixed Venous Sat No results for input(s): K8HFNI2 in the last 168 hours. Microbiology: Microbiology Results (Last 30 days) Procedure Component Value Units Date/Time Blood culture [[id number]] Collected: 07/29/24 160 Lab Status: Preliminary result Specimen: Blood, Venous Updated: 07/31/24 170 Blood Culture No growth at 48 hours Blood culture [[id number]] Collected: 07/29/24 1608 Lab Status: Preliminary result Specimen: Blood, Venous Updated: 07/31/24 1701 Blood Culture No growth at 48 hours Imaging: Results for orders placed or performed during the hospital encounter of 07/29/24 XR Chest One View (Exam End: 07/29/2024 2:30 PM) Result Value WORKSTATION ID [id number] Impression 1. No pulmonary edema. 2. No pleural effusion. 3. No pneumothorax. Thank you for letting us participate in the care of this patient. If you are a health care provider and have any questions regarding this report, please contact the number below. For patients who have questions please contact the health caretaker grounds that requested your imaging first. Electronically signed by: Chris Candelaria MD, [facility] ([phone]), at 07/29/2024 3:21 PM TTE ( 07/30/24) [...] Compared to the overnight study by the educational coordinator fellow the impella position is stable. The [...] EKG. Patient transferred via air ambulance to [facility] on 07/29 for LHC and LOW to [...] Susannah Ornelas MD Internal Medicine, PGY-1 Cardiology, [facility] 08/01/24 7:13 AM CARDIOLOGY STAFF NOTE I [...] with him; questions answered. Krystal Parker MD, [facility], [facility] Staff Blue Split Trimmer physician relations manager * Krystal Parker MD - 07/31/2024 1:06 [...] EKG. Patient transferred via air ambulance to [facility] on 07/29 for LHC and LOW to LAD for 100% occlusion. TTE showed apical akinesis and inferior hypokinesis with EF 20%. RHC showed elevated filling pressures. Impella placed and P-level 6 at time of transfer to [facility]. CI initially 1.97, improved to 2.2 After impella. Received about 3 L of fluid during procedural course. Patient initially required norepinephrine 30, epinephrine 10, and vasopressin 0.04 for hemodynamic support, which was weaned upon arrival to [facility] to norepinephrine 20and levo 0.04 N - [...] PCP: Alexia Mtz APRN PCP phone number: [phone] Date of Admission: 07/29/2024 ( Hospital Day 2 days ) Attending:Krystal Parker MD ID: Korey Montoya is a 74 y.o. male w/ PMH of hypertension, HLD, and BPH on Hospital Day2 for chief concern of chest pain after being found to have ST elevations on EKG. Patient transferred via air ambulance to [facility] on 07/29 for LHC and LOW to [...] 0057 07/29/24 1621 PHART 7.44 7.38 7.37 TUY9VLS 29* 34* 36 PO2ART 109* 141* 71* RKE2ZYP 19.4* 19.5* 20.4 VBG (Venous Blood Gas) Recent Labs 07/29/24 1401 PHVEN 7.30* PO2VEN 39 PKZ5BRF 20.1* Mixed Venous Sat No results for input(s): R7JLDU8 in the last 168 hours. PA Catheter [...] 0057 07/29/24 1621 PHART 7.44 7.38 7.37 IRN8NDO 29* 34* 36 PO2ART 109* 141* 71* RUQ4PTL 19.4* 19.5* 20.4 VBG (Venous Blood Gas) Recent Labs 07/29/24 1401 PHVEN 7.30* PO2VEN 39 UZH7VIS 20.1* Mixed Venous Sat No results for input(s): Z3WYNI3 in the last 168 hours. Microbiology: Microbiology Results (Last 30 days) Procedure Component Value Units Date/Time Blood culture [[id number]] Collected: 07/29/241607 Lab Status: Preliminary result Specimen: Blood, Venous Updated: 07/30/241700 Blood Culture No Growth at 18-24 hrs. Blood culture [[id number]] Collected: 07/29/241607 Lab Status: Preliminary result Specimen: Blood, Venous Updated: 07/30/241700 Blood Culture No Growth at 18-24 hrs. Imaging: Results for orders placed or performed during the hospital encounter of 07/29/24 XR Chest One View (Exam End: 07/29/2024 2:30 PM) Result Value WORKSTATION ID [id number] Impression 1. No pulmonary edema. 2. No pleural effusion. 3. No pneumothorax. Thank you for letting us participate in the care of this patient. If you are a health care provider and have any questions regarding this report, please contact the number below. For patients who have questions please contact the health caretaker grounds that requested your imaging first. Electronically signed by: Chris Candelaria MD, [facility] ([phone]), at 07/29/2024 3:21 PM TTE ( 07/30/24) [...] Compared to the overnight study by the educational coordinator fellow the impella position is stable. The [...] EKG. Patient transferred via air ambulance to [facility] on 07/29 for LHC and LOW to [...] work to optimize volume status while continuing iktxelo-iixvwk-xywvxaphnl therapies at this time. Obtain comprehensive TTE. [...] ILL WITH THESE DIAGNOSES BEING MANAGED BY [facility] TEAM: # Anterior STEMI, late-presenting # Cardiogenic [...] EKG. Patient transferred via air ambulance to [facility] on 07/29 for LHC and LOW to LAD for 100% occlusion. TTE showed apical akinesis and inferior hypokinesis with EF 20%. RHC showed elevated filling pressures. Impella placed and P-level 6 at time of transfer to [facility]. CI initially 1.97, improved to 2.2 After impella. Received about 3 L of fluid during procedural course. Patient initially required norepinephrine 30, epinephrine 10, and vasopressin 0.04 for hemodynamic support, which was weaned upon arrival to [facility] to norepinephrine 20and levo 0.04 N - [...] PCP: Yoel Artis APRN PCP phone number: [phone] Date of Admission: 07/29/2024 ( Hospital Day 1 day ) Attending:Aubree Silverio MD ID: Korey Montoya is a 74 y.o. male w/ PMH of hypertension, HLD, and BPH on Hospital Day1 for chief concern of chest pain after being found to have ST elevations on EKG. Patient transferred via air ambulance to [facility] on 07/29 for LHC and LOW to LAD for 100% occlusion. 24 Hour Events/Subjective: Yesterday: - Admitted to the [facility] - After his LHC, he demonstrated significant [...] 0057 07/29/24 1621 PHART 7.44 7.38 7.37 SJD2MGO 29* 34* 36 PO2ART 109* 141* 71* VGG0GIP 19.4* 19.5* 20.4 VBG (Venous Blood Gas) Recent Labs 07/29/24 1401 PHVEN 7.30* PO2VEN 39 GLW2CGB 20.1* Lactate ( Last 12 hours) 1.3 >> 1.2 Mixed Venous Sat No results for input(s): O0AYPP9 in the last 168 hours. PA Catheter [...] 0057 07/29/24 1621 PHART 7.44 7.38 7.37 QJD1VKR 29* 34* 36 PO2ART 109* 141* 71* XEM9GKM 19.4* 19.5* 20.4 VBG (Venous Blood Gas) Recent Labs 07/29/24 1401 PHVEN 7.30* PO2VEN 39 UWT3VXW 20.1* Mixed Venous Sat No results for input(s): D6ICPA3 in the last 168 hours. Microbiology: Microbiology Results (Last 30 days) Procedure Component Value Units Date/Time Blood culture [[id number]] Collected: 07/29/24 1608 Lab Status: In process Specimen: Blood, Venous Updated: 07/29/24 1626 Blood culture [[id number]] Collected: 07/29/24 1608 Lab Status: In process Specimen: Blood, Venous Updated: 07/29/24 1615 Imaging: Results for orders placed or performed during the hospital encounter of 07/29/24 XR Chest One View (Exam End: 07/29/2024 2:30 PM) Result Value WORKSTATION ID [id number] Impression 1. No pulmonary edema. 2. No pleural effusion. 3. No pneumothorax. Thank you for letting us participate in the care of this patient. If you are a health care provider and have any questions regarding this report, please contact the number below. For patients who have questions please contact the health caretaker grounds that requested your imaging first. Electronically signed by: Chris Candelaria MD, [facility] ([phone]), at 07/29/2024 3:21 PM Medications Scheduled Meds: [...] EKG. Patient transferred via air ambulance to [facility] on 07/29 for LHC and LOW to [...] EKG. Patient transferred via air ambulance to [facility] on 07/29 for LHC and LOW to [...] EKG. Was transferred via air ambulance to [facility] for further management and [facility] demo nstrated 100% occlusion. No significant RCA, LMCA, or LCX disease. LOW placed in LAD with some residual distal disease meriting placement of overlapping distal stent. TTE showed apical akinesis and inferior hypokinesis with EF 20%. RHC showed elevated filling pressures. Impella placed and P-level 6 at time of transfer to [facility]. CI initially 1.97, improved to 2.2 After impella. Received about 3 L of fluid during procedural course. Patient initially required norepinephrine, epinephrine, and vasopressin for hemodynamic support, which was weaned upon arrival to [facility] to norepinephrine 20 and levo 0.04 (epinephrine [...] (WRVU 4.57) performed by Brandan Mcgovern MD [facility] ENDOSCOPY Significant Family History: Family History [...] mouth. Past Week nitroGLYcerin (NITROLINGUAL) 400 mcg/spray [place], Non-Aerosol 1 spray to anus for proctalgia [...] 3.5 guiding catheter and a 3.5 Fr [place] [place] [facility] 20 Mhz using Manual pullback. Imaging [...] atmospheres. A premounted 3.00 x 22 mm [place] (LOW) was deployed with a maximum inflation [...] atmospheres. A premounted 3.00 x 08 mm [place] (LOW) was deployed with a maximum inflation [...] a limited study performed by a fellow educational coordinator to evaluate for cardiogenic shock with impella [...] Compared to the overnight study by the educational coordinator fellow the impella position is stable. The [...] EKG. Patient transferred via air ambulance to [facility] on 07/29 for LHC and LOW to [...] PCP: Yoel Artis APRN PCP phone number: [phone] Date of Admission: 07/29/2024 ( Hospital Day 0 days ) Attending:Aubree Silverio MD ID: Korey Montoya is a 74 y.o. male w/ PMH of hypertension, HLD, and BPH who presents for chief concern of chest pain after being found to have ST elevations on EKG. Patient transferred via air ambulance to [facility] on 07/29 for LHC and LOW to LAD for 100% occlusion. HPI: Korey Montoya is a 74 y.o. male w/ PMH of hypertension, HLD, and BPH who presents for chief concern of chest pain after being found to have ST elevations on EKG. Patient transferred via air ambulance to [facility] on 07/29 for LHC and LOW to [...] EKG. Was transferred via air ambulance to [facility] for further management and LHC demonstrated 100% [...] (WRVU 4.57) performed by Brandan Mcgovern MD [facility] ENDOSCOPY Family History Family History Problem [...] Blood Gas) No results for input(s): PHART, ZTU8TOR, PO2ART, AFO8AUO, LACTATEVEN, KDV8UVT, PFRATIOART2 in the last 168 hours. VBG (Venous Blood Gas) Recent Labs 07/29/24 1401 PHVEN 7.30* PO2VEN 39 ZZQ4NSD 20.1* Mixed Venous Sat No results for input(s): V2EMSD0 in the last 168 hours. PA Catheter [...] Blood Gas) No results for input(s): PHART, ZNC1JPX, PO2ART, KEE3SSG, LACTATEVEN, ATZ4MNN, PFRATIOART2 in the last 168 hours. VBG (Venous Blood Gas) Recent Labs 07/29/24 1401 PHVEN 7.30* PO2VEN 39 XCG5FNG 20.1* Mixed Venous Sat No results for input(s): B0DYJY1 in the last 168 hours. Microbiology: Microbiology [...] EKG. Patient transferred via air ambulance to [facility] on 07/29 for LHC. Found to have 100% occlusion of LAD for which he underwent LOW to LAD.Otherwise no other significant vessel disease. Fahad is currently hemodynamically tenuous but improving upon admission to [facility], requiring hemodynamic support with norepinephrine and vasopressin at time of admission along with mechanical support with Impella device. Reassuringly, he demonstrates decreasing pressor requirements since admission to [facility], with epinephrine completely weaned. He does demonstrate [...] Bernardo Amos MD Internal Medicine, PGY-3 Cardiology, [facility] 07/29/24 3:14 PM Cardiology Attending Note I [...] MD, FACP, FACC Section of Cardiovascular Medicine [facility] Pulpit Operatorelectronic systems technician On License Of [facility] [employer] at [facility] This patient meets or has met [...] to the planned procedure. Hand Hygiene: The alcoholic counselor did perform hand hygiene prior to arterial [...] ease. Good wave form. Ivan Hernandez MD Fabric Cutter Associated attestation - Rolando Yeh MD - [...] Fahad was quite active prior to his RI. 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 Given parameters for home exercise. He follows a heart healthy diet and is not overweight. His lipids are wnl. Participation in an outpatient cardiac rehabilitation program at [facility] was discussed. Patient agrees to a [...] No Patient is insured through: Primary Insurance: [facility] MANAGED MEDICARE Payor: [facility]ED MEDIC[facility] / Plan: [facility] MANAGED MEDICARE COMPLETE / Product Type: [...] Date of Discharge: 08/04/2024 Gaby Wong RN, Pager-[phone] * Initial Assessments - Char Meza, OT - 08/03/2024 10:00 AM EST Occupational Therapy Evaluation Patient profile: Korey Montoya is a 74 y.o. male admitted on 07/29/2024 w/ PMH of hypertension, HLD, and BPH who presents for chief concern of chest pain after being found to have ST elevations onEKG. Patient transferred via air ambulance to [facility] on 07/29 for LHC and LOW to [facility] for 100% occlusion. Past Medical History: Diagnosis Date ADHD HLD (hyperlipidemia) HTN (hypertension) Tremor Past Surgical History: Procedure Laterality Date HAND SURGERY PRO COLONOSCOPY, REMV LESN, SNARE N/A 08/30/2023 COLONOSCOPY, POLYPECTOMY, REMOVAL LESION BY SNARE (WRVU 4.57) performed by Brandan Mcgovern MD [facility] ENDOSCOPY Social History: Patient lives with his . Home Setup: 2 NAOMI to a 1 level home. DME: none Baseline ADL/Mobility: Independent with ADLs and IADLs. Enjoys walking. able assist as needed. Precautions/Special Considerations: Full code. Risk for falls. Subjective: I have access to an [employer] weight gym. (Educated to wait for MD [...] evaluation only Total Minutes, Occupational Therapy: 14 ([id number] (evaluation)) 2017 OT Evaluation Code Rationale: Diagnosis [...] and measurable assessment of functional outcome. Pager: [phone] Char Meza OT 08/03/2024 Occupational Therapy Rehabilitation [...] (Interventions Implemented as Appropriate) Flowsheets (Taken 08/01/2024 [id number]) Outcome Summary: A+O, no pain. NSR. MAP [...] Procedure Note: Patient Name: Korey Montoya : [id number] MR#: [id number] Case Date: 07/31/2024 Manager Fitness: Surgeons and Role: * Maldonado Luis MD - Primary * Quinten Charles PA - Physician Accountant Helper Preoperative diagnosis: shock, impella Postoperative diagnosis: * same * Procedure(s) performed: Impella removal form right STUDENT ADMISSIONS CLERK Access: Right STUDENT ADMISSIONS CLERK A time-out was conducted prior to the [...] Admitted From: Transfer from another hospital Location: [facility] Reason for Hospitalization: chest pain Past medical History: Past Medical History: Diagnosis Date ADHD HLD (hyperlipidemia) HTN (hypertension) Tremor Hospitalizations Within the Past 30 Days: no previous admission in last 30 days Current Decision-Making Capacity: Self If AD's have not been completed the following surrogate would be surrogate decision maker per [place] surrogate decision making law. (Only good for 180 days) Any patient receiving care in [place] must abide by [place] law. The hierarchy for surrogate decision making [...] (i) The agent with financial power of store receiving specialist or a conservator appointed in accordance with [...] homeless or living in a chcf (including now)?: No In the past 12 months has the [employer] gas, oil, or water [employer] threatened to shut off services in your [...] it) Home Address confirmed as: Mailing Address: [facility] 11 Counts include 234 beds at the [facility] [address] Physical Address: [address] [place], [place] Social & Family Supports: All names [...] points: Addiction likely Health/Prescription Coverage: Primary Insurance: [facility] [employer] MEDICARE Payor: [employer] MANAGED MEDICARE / Plan: [facility] MANAGED MEDICARE COMPLETE / Product Type: *No Product type* / Secondary Insurance: N/A ; Prescription Coverage: Yes Preferred Pharmacy: [address] [address] Status: Patient is a : No Primary Care Provider confirmed: Alexia Mtz, LEVEL VIAL SETTER [phone] Patient/Caregiver Goals of Treatment: return home Potential [...] 07/29/2024 6:25 PM EST 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 CXR and EKG completed. Impella [...] Procedure Note: Patient Name: Korey Montoya : [id number] MR#: [id number] Case Date: 07/29/2024 Manager Fitness: Surgeons and Role: * Vahe Marvin MD - Primary * Susannah Watts PA - Physician Accountant Helper Preoperative diagnosis: STEMI Postoperative diagnosis: * STEMI, LAD Artery * * Cardiogenic Shock * Procedure(s) performed: [facility] Coronary angiogram Stent insertion coronary IVUS coronary Venous line insert [facility] [place] Catheter Vascular closure device Ventricular assist [...] x 22 mm to 14 deonna [place] with LIZ 3 flow. Residual distal disease at distal stent, overlapping distal stent was inserted with 3.0 x 8 mm [place]. Systolic's in the 80's sustained. Patient re [...] AM EST Office Visit Cardiology at [address] [phone] Mushtaq Murphy, LEVEL VIAL SETTER Scheduled Orders Name Type Priority Associated Diagnoses [...] (with Diff) (08/04/2024 6:08 AM EST) Pathologist [facility] White Blood Cell 7.27 4.00 - 9.50 x10(3)/mc L 08/04/2024 6:39 AM [facility] Red Blood Cell 4.28(L) 4.58 - 5.54 x10(6)/mc L 08/04/2024 6:39 AM [facility] Hemoglobin 11.6(L) 13.7 - 16.5 g/dL 08/04/2024 6:39 AM [facility] Hematocrit 34.8(L) 40.5 - 48.5 % 08/04/2024 6:39 AM [facility] Mean Cell Volume 81.3(L) 82.9 - 93.1 fL 08/04/2024 6:39 AM [facility] Mean Cell Hemoglobin 27.1(L) 27.5 - 32.1 pg 08/04/2024 6:39 AM [facility] Mean Cell Hemoglobin Concentration 33.3 32.0 - 35.7 g/dL 08/04/2024 6:39 AM [facility] Platelet 178 145 - 357 x10(3)/mc L 08/04/2024 6:39 AM [facility] Mean Platelet Volume 10.6 7.6 - 12.9 fL 08/04/2024 6:39 AM [facility] RDW Standard Deviation 42.0 36.0 - 45.0 fL 08/04/2024 6:39 AM [facility] RDW coefficient of variation 14.3(H) 11.4 - 13.8 % 08/04/2024 6:39 AM [facility] NRBC% auto 0.0 % 08/04/2024 6:39 AM [facility] NRBC Absolute <0.01 <0.01 x10(3)/mc L 08/04/2024 6:39 AM [facility] Neutrophil % 72.1 % 08/04/2024 6:39 AM [facility] Neutrophil Absolute (ANC) - Automated 5.24 1.70 - 6.10 x10(3)/mc L 08/04/2024 6:39 AM [facility] Lymph % 16.8 % 08/04/2024 6:39 AM [facility] Lymph Absolute 1.22 0.90 - 3.20 x10(3)/mc L 08/04/2024 6:39 AM [facility] Monocyte % 8.5 % 08/04/2024 6:39 AM [facility] Monocyte Absolute 0.62 0.30 - 0.90 x10(3)/mc L 08/04/2024 6:39 AM [facility] Eos % 1.9 % 08/04/2024 6:39 AM [facility] Eos Absolute 0.14 0.00 - 0.40 x10(3)/mc L 08/04/2024 6:39 AM [facility] Basophil % 0.4 % 08/04/2024 6:39 AM [facility] Baso Absolute <0.04 0.00 - 0.10 x10(3)/mc L 08/04/2024 6:39 AM [facility] Immature Gran % 0.3 % 6:39 AM [facility] Immature Gran Absolute <0.04 0.00 - 0.04 x10(3)/mc L 08/04/2024 6:39 AM EST [facility] Blood VENOUS BLOOD SPECIMEN / Unknown Venipuncture / Unknown 08/04/2024 6:08 AM EST 08/04/2024 6:19 AM EST Bridgette Stauffer MD HEMATOLOGY ORDERABLE S Performing Organization Address City/[facility]/ZIP Co de Phone Number [facility] [place] [address] * Magnesium (08/04/2024 6:08 AM EST) Magnesium 0.85 0.69 - 1.07 mMol/L 08/04/2024 7:07 AM [facility] Blood VENOUS BLOOD SPECIMEN / Unknown Venipuncture / Unknown 08/04/2024 6:08 AM EST 08/04/2024 6:19 AM EST Bridgette Stauffer MD CHEMISTRY ORDERABLES Performing Organization Address City/[facility]/ZIP Co de Phone Number [facility] [place] [address] * Basic Metabolic Panel (08/04/2024 6:08 AM EST) Glucose 93 65 - 199 mg/dL 08/04/2024 7:07 AM [facility] Comment:Glucose Concentratio n >=200 mg/dL plus symptoms is consistent with Diabetes Mellitus. Blood Urea Nitrogen 14 10 - 20 mg/dL 08/04/2024 7:07 AM [facility] Creatinine 1.07 0.80 - 1.50 mg/dL 08/04/2024 7:07 AM [facility] Sodium 138 135 - 145 mMol/L 08/04/2024 7:07 AM [facility] Potassium 4.3 3.5 - 5.0 mMol/L 08/04/2024 7:07 AM [facility] Chloride 107 98 - 107 mMol/L 08/04/2024 7:07 AM [facility] Carbon Dioxide 23 22 - 31 mMol/L 08/04/2024 7:07 AM EST [facility] Anion Gap 8 5 - 15 mMol/L 08/04/2024 7:07 AM EST [facility] Calcium 8.5 8.5 - 10.5 mg/dL 08/04/2024 7:07 AM EST [facility] Est Glomerular Filtration Rate - Male 74 mL/min/1. 73 m?? 08/04/2024 7:07 AM EST [facility] Comment: This patient's estimated [...] AM EST Bridgette Stauffer MD CHEMISTRY ORDERABLES [facility] [place] [address] * (ABNORMAL) CBC (with Diff) (08/03/2024 5:16 AM EST) White Blood Cell 7.85 4.00 - 9.50 x10(3)/mc L 08/03/2024 5:29 AM EST [facility] Red Blood Cell 4.43(L) 4.58 - 5.54 x10(6)/mc L 08/03/2024 5:29 AM EST [facility] Hemoglobin 11.8(L) 13.7 - 16.5 g/dL 08/03/2024 5:29 AM EST [facility] Hematocrit 35.9(L) 40.5 - 48.5 % 08/03/2024 5:29 AM [facility] Mean Cell Volume 81.0(L) 82.9 - 93.1 fL 08/03/2024 5:29 AM [facility] Mean Cell Hemoglobin 26.6(L) 27.5 - 32.1 pg 08/03/2024 5:29 AM [facility] Mean Cell Hemoglobin Concentration 32.9 32.0 - 35.7 g/dL 08/03/2024 5:29 AM [facility] Platelet 142(L) 145 - 357 x10(3)/mc L 08/03/2024 5:29 AM [facility] Mean Platelet Volume 10.5 7.6 - 12.9 fL 08/03/2024 5:29 AM [facility] RDW Standard Deviation 42.5 36.0 - 45.0 fL 08/03/2024 5:29 AM [facility] RDW coefficient of variation 14.2(H) 11.4 - 13.8 % 08/03/2024 5:29 AM [facility] NRBC% auto 0.0 % 08/03/2024 5:29 AM [facility] NRBC Absolute <0.01 <0.01 x10(3)/mc L 08/03/2024 5:29 AM [facility] Neutrophil % 75.2 % 08/03/2024 5:29 AM [facility] Neutrophil Absolute (ANC) - Automated 5.91 1.70 - 6.10 x10(3)/mc L 08/03/2024 5:29 AM [facility] Lymph % 13.4 % 08/03/2024 5:29 AM [facility] Lymph Absolute 1.05 0.90 - 3.20 x10(3)/mc L 08/03/2024 5:29 AM [facility] Monocyte % 9.0 % 08/03/2024 5:29 AM [facility] Monocyte Absolute 0.71 0.30 - 0.90 x10(3)/mc L 08/03/2024 5:29 AM [facility] Eos % 1.7 % 08/03/2024 5:29 AM [facility] Eos Absolute 0.13 0.00 - 0.40 x10(3)/mc L 08/03/2024 5:29 AM [facility] Basophil % 0.4 % 08/03/2024 5:29 AM [facility] Baso Absolute <0.04 0.00 - 0.10 x10(3)/mc L 08/03/2024 5:29 AM [facility] Immature Gran % 0.3 % 5:29 AM [facility] Immature Gran Absolute <0.04 0.00 - 0.04 x10(3)/mc L 08/03/2024 5:29 AM [facility] Blood VENOUS BLOOD SPECIMEN / Unknown Venipuncture / Unknown 08/03/2024 5:16 AM EST 08/03/2024 5:23 AM EST Bridgette Stauffer MD HEMATOLOGY ORDERABLE S [facility] [place] [address] * Magnesium (08/03/2024 5:16 AM EST) Magnesium 0.89 0.69 - 1.07 mMol/L 08/03/2024 5:56 AM [facility] Blood VENOUS BLOOD SPECIMEN / Unknown Venipuncture / Unknown 08/03/2024 5:16 AM EST 08/03/2024 5:23 AM EST Bridgette Stauffer MD CHEMISTRY ORDERABLES [facility] [place] [address] * (ABNORMAL) Basic Metabolic Panel (08/03/2024 5:16 AM EST) Glucose 98 65 - 199 mg/dL 08/03/2024 5:56 AM [facility] Comment:Glucose Concentratio n >=200 mg/dL plus symptoms is consistent with Diabetes Mellitus. Blood Urea Nitrogen 16 10 - 20 mg/dL 08/03/2024 5:56 AM [facility] Creatinine 0.85 0.80 - 1.50 mg/dL 08/03/2024 5:56 AM [facility] Sodium 137 135 - 145 mMol/L 08/03/2024 5:56 AM [facility] Potassium 4.5 3.5 - 5.0 mMol/L 08/03/2024 5:56 AM [facility] Chloride 106 98 - 107 mMol/L 08/03/2024 5:56 AM [facility] Carbon Dioxide 21(L) 22 - 31 mMol/L 08/03/2024 5:56 AM [facility] Anion Gap 10 5 - 15 mMol/L 08/03/2024 5:56 AM [facility] Calcium 8.3(L) 8.5 - 10.5 mg/dL 08/03/2024 5:56 AM [facility] Est Glomerular Filtration Rate - Male 92 mL/min/1. 73 m?? 08/03/2024 5:56 AM [facility] Comment: This patient's estimated GFR was [...] Stauffer MD CHEMISTRY ORDERABLES Performing Organization Address [facility]/ZIP Co de Phone Number [facility] [place] [address] * POC, GLUCOSE (08/02/2024 7:47 AM EST) [facility] Glucometer, POC 89 65 - 199 mg/dL 08/02/2024 7:47 AM EST [facility] Comment:Supplemental ranges: <140 mg/dL before meals <180 mg/dL all other times of the day. Blood CAPILLARY BLOOD / Unknown 08/02/2024 7:47 AM EST 08/02/2024 7:47 AM EST Krystal Parker MD POINT OF CARE TEST O RDERABLES Performing Organization Address [facility] Co de Phone Number [facility] [place] [address] * (ABNORMAL) CBC (with Diff) (08/02/2024 4:20 AM EST) [facility] White Blood Cell 8.51 4.00 - 9.50 x10(3)/mc L 08/02/2024 4:50 AM [facility] Red Blood Cell 4.41(L) 4.58 - 5.54 x10(6)/mc L 08/02/2024 4:50 AM [facility] Hemoglobin 12.2(L) 13.7 - 16.5 g/dL 08/02/2024 4:50 AM [facility] Hematocrit 35.8(L) 40.5 - 48.5 % 08/02/2024 4:50 AM [facility] Mean Cell Volume 81.2(L) 82.9 - 93.1 fL 08/02/2024 4:50 AM [facility] Mean Cell Hemoglobin 27.7 27.5 - 32.1 pg 08/02/2024 4:50 AM [facility] Mean Cell Hemoglobin Concentration 34.1 32.0 - 35.7 g/dL 08/02/2024 4:50 AM [facility] Platelet 111(L) 145 - 357 x10(3)/mc L 08/02/2024 4:50 AM [facility] Mean Platelet Volume 11.1 7.6 - 12.9 fL 08/02/2024 4:50 AM [facility] RDW Standard Deviation 41.9 36.0 - 45.0 fL 08/02/2024 4:50 AM [facility] RDW coefficient of variation 14.1(H) 11.4 - 13.8 % 08/02/2024 4:50 AM [facility] NRBC% auto 0.0 % 08/02/2024 4:50 AM [facility] NRBC Absolute <0.01 <0.01 x10(3)/mc L 08/02/2024 4:50 AM [facility] Neutrophil % 77.7 % 08/02/2024 4:50 AM [facility] Neutrophil Absolute (ANC) - Automated 6.62(H) 1.70 - 6.10 x10(3)/mc L 08/02/2024 4:50 AM [facility] Lymph % 11.9 % 08/02/2024 4:50 AM [facility] Lymph Absolute 1.01 0.90 - 3.20 x10(3)/mc L 08/02/2024 4:50 AM [facility] Monocyte % 8.2 % 08/02/2024 4:50 AM [facility] Monocyte Absolute 0.70 0.30 - 0.90 x10(3)/mc L 08/02/2024 4:50 AM [facility] Eos % 1.4 % 08/02/2024 4:50 AM [facility] Eos Absolute 0.12 0.00 - 0.40 x10(3)/mc L 08/02/2024 4:50 AM EST [facility] Basophil % 0.4 % 08/02/2024 4:50 AM [facility] Baso Absolute <0.04 0.00 - 0.10 x10(3)/mc L 08/02/2024 4:50 AM [facility] Immature Gran % 0.4 % 4:50 AM [facility] Immature Gran Absolute <0.04 0.00 - 0.04 x10(3)/mc L 08/02/2024 4:50 AM [facility] Blood VENOUS BLOOD SPECIMEN / Unknown Venipuncture / Unknown 08/02/2024 4:20 AM EST 08/02/2024 4:37 AM EST Bridgette Stauffer MD HEMATOLOGY ORDERABLE S Performing Organization Address City/[facility]/ZIP Co de Phone Number [facility] [place] [address] * Magnesium (08/02/2024 4:20 AM EST) Magnesium 0.79 0.69 - 1.07 mMol/L 08/02/2024 5:06 AM [facility] Blood VENOUS BLOOD SPECIMEN / Unknown Venipuncture / Unknown 08/02/2024 4:20 AM EST 08/02/2024 4:37 AM EST Bridgette Stauffer MD CHEMISTRY ORDERABLES [facility] [place] [address] * (ABNORMAL) Basic Metabolic Panel (08/02/2024 4:20 AM EST) Glucose 110 65 - 199 mg/dL 08/02/2024 5:06 AM [facility] Comment:Glucose Concentratio n >=200 mg/dL plus symptoms is consistent with Diabetes Mellitus. Blood Urea Nitrogen 12 10 - 20 mg/dL 08/02/2024 5:06 AM [facility] Creatinine 0.90 0.80 - 1.50 mg/dL 08/02/2024 5:06 AM [facility] Sodium 139 135 - 145 mMol/L 08/02/2024 5:06 AM [facility] Potassium 4.0 3.5 - 5.0 mMol/L 08/02/2024 5:06 AM [facility] Chloride 108(H) 98 - 107 mMol/L 08/02/2024 5:06 AM [facility] Carbon Dioxide 23 22 - 31 mMol/L 08/02/2024 5:06 AM [facility] Anion Gap 8 5 - 15 mMol/L 08/02/2024 5:06 AM [facility] Calcium 8.1(L) 8.5 - 10.5 mg/dL 08/02/2024 5:06 AM [facility] Est Glomerular Filtration Rate - Male 91 mL/min/1. 73 m?? 08/02/2024 5:06 AM [facility] Comment: This patient's estimated GFR was [...] AM EST Bridgette Stauffer MD CHEMISTRY ORDERABLES [facility] [place] [address] * Potassium (08/01/2024 8:39 PM EST) Potassium 4.0 3.5 - 5.0 mMol/L 08/01/2024 9:21 PM EST [facility] Blood VENOUS BLOOD SPECIMEN / Unknown Venipuncture / Unknown 08/01/2024 8:39 PM EST 08/01/2024 8:51 PM EST Aubree Silverio MD CHEMISTRY ORDERABL ES Performing Organization Address City/[facility]/ZIP Co de Phone Number [facility] [place] [address] * POC, GLUCOSE (08/01/2024 8:35 PM EST) Glucometer, POC 112 65 - 199 mg/dL 08/01/2024 8:36 PM EST [facility] Comment:Supplemental ranges: <140 mg/dL before meals <180 mg/dL all other times of the day. Blood CAPILLARY BLOOD / Unknown 08/01/2024 8:35 PM EST 08/01/2024 8:36 PM EST Krystal Parker MD POINT OF CARE TEST O RDKAY Performing Organization Address [facility] Co de Phone Number [facility] [place] [address] * POC, GLUCOSE (08/01/2024 4:55 PM EST) Glucometer, POC 99 65 - 199 mg/dL 08/01/2024 4:56 PM EST [facility] Comment:Supplemental ranges: <140 mg/dL before meals <180 mg/dL all other times of the day. Blood CAPILLARY BLOOD / Unknown 08/01/2024 4:55 PM EST 08/01/2024 4:56 PM EST Krystal Parker MD POINT OF CARE TEST O RDKAY Performing Organization Address City/[facility]/ZIP Co de Phone Number [facility] [place] [address] * POC, GLUCOSE (08/01/2024 12:42 PM EST) Glucometer, POC 130 65 - 199 mg/dL 08/01/2024 12:43 PM EST [facility] Comment:Supplemental ranges: <140 mg/dL before meals <180 mg/dL all other times of the day. Blood CAPILLARY BLOOD / Unknown 08/01/2024 12:42 PM EST 08/01/2024 12:43 PM EST Krystal Parker MD POINT OF CARE TEST O RDERASHAY [facility] [place] [address] * (ABNORMAL) Cooximetry, POC (08/01/2024 10:45 AM EST) Pathologist [facility] pO2, Coox 32 mmHg 08/01/2024 10:48 AM [facility] Hemoglobin, Coox 12.9(L) 13.7 - 16.5 g/dL 08/01/2024 10:48 AM [facility] Oxyhemoglobin, Coox 66.7 % 08/01/2024 10:48 AM [facility] Carboxyhemoglo bin, Coox 1.1 % 08/01/2024 10:48 AM [facility] Comment: Nonsmokers: 0.5-1.5% COHB ?? Smokers: Variable ??but usually less than 10% ?? Toxic: 20-30% COHB ?? Lethal: Greater than 60% COHB Methemoglobin, Coox 0.3 <=1.5 % 08/01/2024 10:48 AM [facility] Blood (Mixed Venous) 08/01/2024 10:45 AM EST 08/01/2024 10:48 AM EST Krystal Parker MD POINT OF CARE TEST O RDERABLES Performing Organization Address City/[facility]/ZIP Co de Phone Number [facility] [place] [address] * Potassium (08/01/2024 8:20 AM EST) Pathologist [facility] Potassium 4.0 3.5 - 5.0 mMol/L 08/01/2024 10:17 AM EST [facility] Blood ARTERIAL BLOOD / Unknown Venipuncture / Unknown 08/01/2024 8:20 AM EST 08/01/2024 8:30 AM EST Aubree Silverio MD CHEMISTRY ORDERABL ES Performing Organization Address City/[facility]/ZIP Co de Phone Number [facility] [place] [address] * POC, GLUCOSE (08/01/2024 7:44 AM EST) [facility] Glucometer, POC 86 65 - 199 mg/dL 08/01/2024 7:44 AM EST [facility] Comment:Supplemental ranges: <140 mg/dL before meals <180 mg/dL all other times of the day. Blood CAPILLARY BLOOD / Unknown 08/01/2024 7:44 AM EST 08/01/2024 7:44 AM EST Krystal Parker MD POINT OF CARE TEST O RDERABLES Performing Organization Address City/[facility]/ZIP Co de Phone Number [facility] [place] [address] * (ABNORMAL) CBC (with Diff) (08/01/2024 4:18 AM EST) [facility] White Blood Cell 8.51 4.00 - 9.50 x10(3)/mc L 08/01/2024 4:53 AM EST [facility] Red Blood Cell 4.12(L) 4.58 - 5.54 x10(6)/mc L 08/01/2024 4:53 AM EST [facility] Hemoglobin 11.2(L) 13.7 - 16.5 g/dL 08/01/2024 4:53 AM EST [facility] Hematocrit 33.8(L) 40.5 - 48.5 % 08/01/2024 4:53 AM [facility] Mean Cell Volume 82.0(L) 82.9 - 93.1 fL 08/01/2024 4:53 AM [facility] Mean Cell Hemoglobin 27.2(L) 27.5 - 32.1 pg 08/01/2024 4:53 AM [facility] Mean Cell Hemoglobin Concentration 33.1 32.0 - 35.7 g/dL 08/01/2024 4:53 AM [facility] Platelet 94(L) 145 - 357 x10(3)/mc L 08/01/2024 4:53 AM [facility] Mean Platelet Volume 10.9 7.6 - 12.9 fL 08/01/2024 4:53 AM [facility] RDW Standard Deviation 44.2 36.0 - 45.0 fL 08/01/2024 4:53 AM [facility] RDW coefficient of variation 14.7(H) 11.4 - 13.8 % 08/01/2024 4:53 AM [facility] NRBC% auto 0.0 % 08/01/2024 4:53 AM [facility] NRBC Absolute <0.01 <0.01 x10(3)/mc L 08/01/2024 4:53 AM [facility] Neutrophil % 82.7 % 08/01/2024 4:53 AM [facility] Neutrophil Absolute (ANC) - Automated 7.04(H) 1.70 - 6.10 x10(3)/mc L 08/01/2024 4:53 AM [facility] Lymph % 8.6 % 08/01/2024 4:53 AM [facility] Lymph Absolute 0.73(L) 0.90 - 3.20 x10(3)/mc L 08/01/2024 4:53 AM [facility] Monocyte % 7.6 % 08/01/2024 4:53 AM [facility] Monocyte Absolute 0.65 0.30 - 0.90 x10(3)/mc L 08/01/2024 4:53 AM [facility] Eos % 0.5 % 08/01/2024 4:53 AM [facility] Eos Absolute 0.04 0.00 - 0.40 x10(3)/mc L 08/01/2024 4:53 AM [facility] Basophil % 0.2 % 08/01/2024 4:53 AM [facility] Baso Absolute <0.04 0.00 - 0.10 x10(3)/mc L 08/01/2024 4:53 AM [facility] Immature Gran % 0.4 % 4:53 AM [facility] Immature Gran Absolute <0.04 0.00 - 0.04 x10(3)/mc L 08/01/2024 4:53 AM [facility] Blood VENOUS BLOOD SPECIMEN / Unknown Venipuncture / Unknown 08/01/2024 4:18 AM EST 08/01/2024 4:29 AM EST Bridgette Stauffer MD HEMATOLOGY ORDERABLE S [facility] [place] [address] * Magnesium (08/01/2024 4:18 AM EST) Magnesium 0.74 0.69 - 1.07 mMol/L 08/01/2024 5:00 AM [facility] Blood VENOUS BLOOD SPECIMEN / Unknown Venipuncture / Unknown 08/01/2024 4:18 AM EST 08/01/2024 4:29 AM EST Bridgette Stauffer MD CHEMISTRY ORDERABLES [facility] [place] [address] * (ABNORMAL) Basic Metabolic Panel (08/01/2024 4:18 AM EST) Glucose 107 65 - 199 mg/dL 08/01/2024 5:00 AM [facility] Comment:Glucose Concentratio n >=200 mg/dL plus symptoms is consistent with Diabetes Mellitus. Blood Urea Nitrogen 8(L) 10 - 20 mg/dL 08/01/2024 5:00 AM [facility] Creatinine 0.82 0.80 - 1.50 mg/dL 08/01/2024 5:00 AM [facility] Sodium 137 135 - 145 mMol/L 08/01/2024 5:00 AM [facility] Potassium 3.9 3.5 - 5.0 mMol/L 08/01/2024 5:00 AM [facility] Chloride 108(H) 98 - 107 mMol/L 08/01/2024 5:00 AM [facility] Carbon Dioxide 21(L) 22 - 31 mMol/L 08/01/2024 5:00 AM [facility] Anion Gap 8 5 - 15 mMol/L 08/01/2024 5:00 AM [facility] Calcium 7.7(L) 8.5 - 10.5 mg/dL 08/01/2024 5:00 AM [facility] Est Glomerular Filtration Rate - Male 93 mL/min/1. 73 m?? 08/01/2024 5:00 AM [facility] Comment: This patient's estimated GFR was [...] Stauffer MD CHEMISTRY ORDERABLES Performing Organization Address [facility] de Phone Number [facility] [place] [address] * POC, GLUCOSE (07/31/2024 8:41 PM EST) [facility] Signature Glucometer, POC 73 65 - 199 mg/dL 07/31/2024 8:41 PM EST [facility] Comment:Supplemental ranges: <140 mg/dL before meals <180 mg/dL all other times of the day. Blood CAPILLARY BLOOD / Unknown 07/31/2024 8:41 PM EST 07/31/2024 8:41 PM EST Krystal Parker MD POINT OF CARE TEST O RDERABLES Performing Organization Address [facility] de Phone Number [facility] [place] [address] * CARDIAC CATHETERIZATION (07/31/2024 5:53 PM EST) Anatomical Region Laterality Modality Other Narrative 08/01/2024 12:37 PM EST ?[facility] ? Cardiac Catheterization/Intervention Report ? Patient Name: Korey MontoyaToby ? Procedure Date: 07/31/2024 ? A #: [id number] ? Primary Physician: Maldonado Luis ? Case #: [id number] ? File Name: [id number] ? Catheterization Order Number: [id number] ? [facility] ? Final Report [place], [place] ? Patient Name: ? Korey P. Montoya ?ID#: ?[id number] ? : ?1950 ? Procedure Date: ? [...] ? Comments: ?Impella removed from the right STUDENT ADMISSIONS CLERK with deployment of Perclose and ?Angioseal. ??Good [...] Procedure Note Maldonado Luis MD - 08/01/2024 [facility] Cardiac Catheterization/Intervention Report Patient Name: Korey MontoyaToby Procedure Date: 07/31/2024 A #: [id number] Primary Physician: Maldonado Luis Case #: [id number] File Name: [id number] Catheterization Order Number: [id number] [facility] FinalReport [place], [place] Patient Name: Korey Montoya ID#:[id number] :1950 Procedure Date: July 31, 2024 Case [...] designated as ASA Class IV. The [facility] clinical frailtyscale is 4: Vulnerable. Diagnostic [...] procedures. Comments: Impella removed from the right STUDENT ADMISSIONS CLERK with deployment of Perclose and Angioseal. Good [...] - 199 mg/dL 07/31/2024 11:04 AM EST [facility] Comment:Supplemental ranges: <140 mg/dL before meals <180 mg/dL all other times of the day. Blood CAPILLARY BLOOD / Unknown 07/31/2024 11:04 AM EST 07/31/2024 11:04 AM EST Krystal Parker MD POINT OF CARE TEST O RDERABLES Performing Organization Address City/State/[facility] Co de Phone Number [facility] [place] [address] * (ABNORMAL) Blood Gas, Arterial POC (07/31/2024 8:29 AM EST) pH, Arterial 7.48(H) 7.35 - 7.45 07/31/2024 8:30 AM [facility] PCO2, Arterial 29(L) 35 - 45 mmHg 07/31/2024 8:30 AM [facility] PO2, Arterial 71(L) 85 - 104 mmHg 07/31/2024 8:30 AM [facility] Bicarbonate, Arterial 20.6 20.0 - 26.0 mmol/L 07/31/2024 8:30 AM [facility] Base Excess, Arterial -3.0 -3.0 - 3.0 mmol/L 07/31/2024 8:30 AM [facility] Hemoglobin, Arterial 12.3(L) 13.7 - 16.5 g/dL 07/31/2024 8:30 AM [facility] Oxyhemoglobin, Arterial 94.4 94.0 - 97.0 % 07/31/2024 8:30 AM [facility] Carboxyhemoglobin , Arterial 0.7 % 07/31/2024 8:30 AM [facility] Comment: Nonsmokers: 0.5-1.5% COHB ?? Smokers: Variable ??but usually less than 10% ?? Toxic: 20-30% COHB ?? Lethal: Greater than 60% COHB Methemoglobin, Arterial 0.3 <=1.5 % 07/31/2024 8:30 AM [facility] Sodium, Arterial 138 135 - 145 mmol/L 07/31/2024 8:30 AM [facility] Potassium, Arterial 3.5 3.5 - 5.0 mmol/L 07/31/2024 8:30 AM [facility] Chloride, Arterial 109(H) 98 - 107 mmol/L 07/31/2024 8:30 AM [facility] Lactate, Arterial 0.8 0.5 - 2.2 mmol/L 07/31/2024 8:30 AM [facility] Fraction of Inspired Oxygen 21 % 07/31/2024 8:30 AM [facility] PF Ratio 338 Ratio 07/31/2024 8:30 AM [facility] Comment:PF ratio calculated using the non-temperature corrected pO2 result. IONIZED CALCIUM, ARTERIAL 1.08(L) 1.15 - 1.33 mmol/L 07/31/2024 8:30 AM [facility] Glucose, Arterial 86 65 - 199 mg/dL 07/31/2024 8:30 AM EST [facility] Comment:Glucose Concentratio n >=200 mg/dL plus symptoms is consistent with Diabetes Mellitus. Blood ARTERIAL BLOOD / Unknown 07/31/2024 8:29 AM EST 07/31/2024 8:30 AM EST Krystal Parker MD POINT OF CARE TEST O RDERABLES [facility] [place] [address] * POC, GLUCOSE (07/31/2024 7:47 AM EST) Glucometer, POC 82 65 - 199 mg/dL 07/31/2024 7:53 AM EST [facility] Comment:Supplemental ranges: <140 mg/dL before meals <180 mg/dL all other times of the day. Blood CAPILLARY BLOOD / Unknown 07/31/2024 7:47 AM EST 07/31/2024 7:53 AM EST Krystal Parker MD POINT OF CARE TEST O RDERABLES [facility] [place] [address] * (ABNORMAL) CBC (with Diff) (07/31/2024 1:08 AM EST) [facility] White Blood Cell 10.25(H) 4.00 - 9.50 x10(3)/mc L 07/31/2024 1:28 AM [facility] Red Blood Cell 4.13(L) 4.58 - 5.54 x10(6)/mc L 07/31/2024 1:28 AM [facility] Hemoglobin 11.2(L) 13.7 - 16.5 g/dL 07/31/2024 1:28 AM [facility] Hematocrit 33.9(L) 40.5 - 48.5 % 07/31/2024 1:28 AM [facility] Mean Cell Volume 82.1(L) 82.9 - 93.1 fL 07/31/2024 1:28 AM [facility] Mean Cell Hemoglobin 27.1(L) 27.5 - 32.1 pg 07/31/2024 1:28 AM [facility] Mean Cell Hemoglobin Concentration 33.0 32.0 - 35.7 g/dL 07/31/2024 1:28 AM [facility] Platelet 109(L) 145 - 357 x10(3)/mc L 07/31/2024 1:28 AM [facility] Mean Platelet Volume 10.4 7.6 - 12.9 fL 07/31/2024 1:28 AM [facility] RDW Standard Deviation 45.1(H) 36.0 - 45.0 fL 07/31/2024 1:28 AM [facility] RDW coefficient of variation 15.1(H) 11.4 - 13.8 % 07/31/2024 1:28 AM [facility] NRBC% auto 0.0 % 07/31/2024 1:28 AM [facility] NRBC Absolute <0.01 <0.01 x10(3)/mc L 07/31/2024 1:28 AM [facility] Neutrophil % 79.7 % 07/31/2024 1:28 AM [facility] Neutrophil Absolute (ANC) - Automated 8.17(H) 1.70 - 6.10 x10(3)/mc L 07/31/2024 1:28 AM [facility] Lymph % 12.8 % 07/31/2024 1:28 AM [facility] Lymph Absolute 1.31 0.90 - 3.20 x10(3)/mc L 07/31/2024 1:28 AM [facility] Monocyte % 6.9 % 07/31/2024 1:28 AM [facility] Monocyte Absolute 0.71 0.30 - 0.90 x10(3)/mc L 07/31/2024 1:28 AM [facility] Eos % 0.1 % 07/31/2024 1:28 AM [facility] Eos Absolute <0.04 0.00 - 0.40 x10(3)/mc L 07/31/2024 1:28 AM [facility] Basophil % 0.3 % 07/31/2024 1:28 AM [facility] Baso Absolute <0.04 0.00 - 0.10 x10(3)/mc L 07/31/2024 1:28 AM [facility] Immature Gran % 0.2 % 1:28 AM EST [facility] Immature Gran Absolute <0.04 0.00 - 0.04 x10(3)/mc L 07/31/2024 1:28 AM [facility] Blood VENOUS BLOOD SPECIMEN / Unknown Venipuncture / Unknown 07/31/2024 1:08 AM EST 07/31/2024 1:18 AM EST Bridgette Stauffer MD HEMATOLOGY ORDERABLE S Performing Organization Address [facility] Co de Phone Number [facility] [place] [address] * Magnesium (07/31/2024 1:08 AM EST) Pathologist [facility] Magnesium 0.89 0.69 - 1.07 mMol/L 07/31/2024 1:46 AM [facility] Blood VENOUS BLOOD SPECIMEN / Unknown Venipuncture / Unknown 07/31/2024 1:08 AM EST 07/31/2024 1:18 AM EST Bridgette Stauffer MD CHEMISTRY ORDERABLES Performing Organization Address City/[facility] Co de Phone Number [facility] [place] [address] * (ABNORMAL) Basic Metabolic Panel (07/31/2024 1:08 AM EST) Pathologist [facility] Glucose 97 65 - 199 mg/dL 07/31/2024 1:46 AM [facility] Comment:Glucose Concentratio n >=200 mg/dL plus symptoms is consistent with Diabetes Mellitus. Blood Urea Nitrogen 11 10 - 20 mg/dL 07/31/2024 1:46 AM [facility] Creatinine 0.96 0.80 - 1.50 mg/dL 07/31/2024 1:46 AM [facility] Sodium 140 135 - 145 mMol/L 07/31/2024 1:46 AM [facility] Potassium 4.1 3.5 - 5.0 mMol/L 07/31/2024 1:46 AM EST [facility] Chloride 110(H) 98 - 107 mMol/L 07/31/2024 1:46 AM EST [facility] Carbon Dioxide 24 22 - 31 mMol/L 07/31/2024 1:46 AM [facility] Anion Gap 6 5 - 15 mMol/L 07/31/2024 1:46 AM [facility] Calcium 7.7(L) 8.5 - 10.5 mg/dL 07/31/2024 1:46 AM [facility] Est Glomerular Filtration Rate - Male 84 mL/min/1. 73 m?? 07/31/2024 1:46 AM [facility] Comment: This patient's estimated GFR was [...] AM EST Bridgette Stauffer MD CHEMISTRY ORDERABLES [facility] [place] [address] * (ABNORMAL) Hepatic Function Panel (07/31/2024 1:08 AM EST) Albumin 3.1(L) 3.2 - 5.2 g/dL 07/31/2024 1:46 AM EST [facility] Aspartate Aminotransferase 192(H) <=39 unit/L 07/31/2024 1:46 AM EST [facility] Alanine Aminotransferase 59(H) 0 - 55 unit/L 07/31/2024 1:46 AM EST [facility] Alkaline Phosphatase 46 40 - 130 unit/L 07/31/2024 1:46 AM [facility] Bilirubin, Total 0.4 <=1.3 mg/dL 07/31/2024 1:46 AM [facility] Bilirubin, Direct <0.2 0.0 - 0.3 mg/dL 07/31/2024 1:46 AM [facility] Protein, Total 5.0(L) 6.1 - 8.0 g/dL 07/31/2024 1:46 AM [facility] Blood VENOUS BLOOD SPECIMEN / Unknown Venipuncture / Unknown 07/31/2024 1:08 AM EST 07/31/2024 1:18 AM EST Krystal Parker MD CHEMISTRY ORDERABLES Performing Organization Address City/[facility] Co de Phone Number [facility] [place] [address] * POC, GLUCOSE (07/30/2024 8:03 PM EST) Glucometer, POC 86 65 - 199 mg/dL 07/30/2024 8:03 PM EST [facility] Comment:Supplemental ranges: <140 mg/dL before meals <180 mg/dL all other times of the day. Blood CAPILLARY BLOOD / Unknown 07/30/2024 8:03 PM EST 07/30/2024 8:03 PM EST Krystal Parker MD POINT OF CARE TEST O RDERABLES Performing Organization Address City/[facility]/ZIP Co de Phone Number [facility] [place] [address] * Potassium (07/30/2024 8:03 PM EST) Potassium 3.8 3.5 - 5.0 mMol/L 07/30/2024 9:13 PM EST [facility] Blood VENOUS BLOOD SPECIMEN / Unknown Venipuncture / Unknown 07/30/2024 8:03 PM EST 07/30/2024 8:22 PM EST Aubree Silverio MD CHEMISTRY ORDERABL ES Performing Organization Address [facility]/ZIP Co de Phone Number [facility] [place] [address] * POC, GLUCOSE (07/30/2024 6:23 PM EST) Glucometer, POC 93 65 - 199 mg/dL 07/30/2024 6:24 PM EST [facility] Comment:Supplemental ranges: <140 mg/dL before meals <180 mg/dL all other times of the day. Blood CAPILLARY BLOOD / Unknown 07/30/2024 6:23 PM EST 07/30/2024 6:24 PM EST Krystal Parker MD POINT OF CARE TEST O JOSH Performing Organization Address [facility] Co de Phone Number [facility] [place] [address] * POC, GLUCOSE (07/30/2024 5:08 PM EST) Glucometer, POC 78 65 - 199 mg/dL 07/30/2024 5:08 PM EST [facility] Comment:Supplemental ranges: <140 mg/dL before meals <180 mg/dL all other times of the day. Blood CAPILLARY BLOOD / Unknown 07/30/2024 5:08 PM EST 07/30/2024 5:08 PM EST Krystal Parker MD POINT OF CARE TEST O JOSH Performing Organization Address [facility] Co de Phone Number [facility] [place] [address] * (ABNORMAL) Phosphorus (07/30/2024 3:08 PM EST) Phosphorus 2.1(L) 2.5 - 4.5 mg/dL 07/30/2024 3:58 PM EST [facility] Blood VENOUS BLOOD SPECIMEN / Unknown Venipuncture / Unknown 07/30/2024 3:08 PM EST 07/30/2024 3:12 PM EST Aubree Silverio MD CHEMISTRY ORDERABL ES Performing Organization Address [facility]/ZIP Co de Phone Number [facility] [place] [address] * Magnesium (07/30/2024 3:08 PM EST) Magnesium 0.90 0.69 - 1.07 mMol/L 07/30/2024 3:58 PM EST [facility] Blood VENOUS BLOOD SPECIMEN / Unknown Venipuncture / Unknown 07/30/2024 3:08 PM EST 07/30/2024 3:12 PM EST Aubree Silverio MD CHEMISTRY ORDERABL ES Performing Organization Address City/[facility]/ZIP Co de Phone Number [facility] [place] [address] * (ABNORMAL) Basic Metabolic Panel (07/30/2024 3:08 PM EST) Glucose 105 65 - 199 mg/dL 07/30/2024 4:17 PM [facility] Comment:Glucose Concentratio n >=200 mg/dL plus symptoms is consistent with Diabetes Mellitus. Blood Urea Nitrogen 13 10 - 20 mg/dL 07/30/2024 4:17 PM EST [facility] Creatinine 1.01 0.80 - 1.50 mg/dL 07/30/2024 4:17 PM [facility] Sodium 141 135 - 145 mMol/L 07/30/2024 4:17 PM [facility] Potassium 3.4(L) 3.5 - 5.0 mMol/L 07/30/2024 4:17 PM [facility] Chloride 109(H) 98 - 107 mMol/L 07/30/2024 4:17 PM [facility] Carbon Dioxide 21(L) 22 - 31 mMol/L 07/30/2024 4:17 PM EST [facility] Anion Gap 11 5 - 15 mMol/L 07/30/2024 4:17 PM EST [facility] Calcium 7.9(L) 8.5 - 10.5 mg/dL 07/30/2024 4:17 PM EST [facility] Est Glomerular Filtration Rate - Male 79 mL/min/1. 73 m?? 07/30/2024 4:17 PM EST [facility] Comment: This patient's estimated [...] EST Aubree Silverio MD CHEMISTRY ORDERABL ES [facility] [place] [address] * ECHO LMTD W CONTRAST W LMTD SPEC DOPP COLOR DOPP (07/30/2024 11:42 AM EST) Anatomical Region Laterality Modality Cardiac Other 07/30/2024 10:2 2 AM EST Narrative 07/30/2024 12:34 [place] [address] ? Echocardiogram Report Name: KOREY MONTOYA ? Study Date: 07/30/2024 10:22 AMBP: 124/66 mmHg : 1950 ? Height: 168 cm ? Account: [id number] Age: 74 yrs ? Weight: 65 kg Gender: Male ?BSA: 1.7 m2 Ordering Physician: Aubree Silverio MD Referring Physician: CHAPARRO FERRERA Performed By: OMERO Millan Reason For Study: ST elevation myocardial infarction involving left anterior descending (LAD) coronary artery Interpreting Fellow: Ivan Hernandez. Exam Location: [facility]. Interpretation Summary Left ventricle is severely [...] Compared to the overnight study by the educational coordinator fellow the impella position is stable. 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 Procedure Limited - 80573. Image enhancement Definity was used for both [...] Procedure Note Kathleen Banda MD - 07/30/[address] [place] [id number] Echocardiogram Report Name: KOREY MONTOYA Kyrie Study Date: 410:22 AMBP: 124/66 mmHg : 1950 Height: 168 cm Account: [id number] Age: 74 yrs Weight: 65 kg Gender: Male BSA: 1.7 m2 Ordering Physician: Aubree Silverio MD Referring Physician: CHAPARRO FERRERA Performed By: OMERO Millan Reason For Study: ST elevation myocardial infarction involving leftanterior descending (LAD) coronary artery Interpreting Fellow: Ivan Hernandez. Exam Location: [facility]. Interpretation Summary Left ventricle is severely [...] Compared to the overnight study by the educational coordinator fellow the impella positionis stable. The global left ventricular systolic function has improvedpredominantly via recruitment outside the LAD territory which remains akinetic. Procedure Limited - 90743. Image enhancement Definity was used for both [...] 65 - 199 mg/dL 07/30/2024 11:17 AM [facility] Comment:Supplemental ranges: <140 mg/dL before meals <180 mg/dL all other times of the day. Blood CAPILLARY BLOOD / Unknown 07/30/2024 11:17 AM EST 07/30/2024 11:17 AM EST Aubree Silverio MD POINT OF CARE TEST ORDERABLES Performing Organization Address City/State/[facility] Co de Phone Number [facility] [place] [address] * (ABNORMAL) Blood Gas, Arterial POC (07/30/2024 8:16 AM EST) pH, Arterial 7.44 7.35 - 7.45 07/30/2024 8:17 AM [facility] PCO2, Arterial 29(L) 35 - 45 mmHg 07/30/2024 8:17 AM [facility] PO2, Arterial 109(H) 85 - 104 mmHg 07/30/2024 8:17 AM [facility] Bicarbonate, Arterial 19.4(L) 20.0 - 26.0 mmol/L 07/30/2024 8:17 AM [facility] Base Excess, Arterial -4.7(L) -3.0 - 3.0 mmol/L 07/30/2024 8:17 AM [facility] Hemoglobin, Arterial 12.2(L) 13.7 - 16.5 g/dL 07/30/2024 8:17 AM [facility] Oxyhemoglobin, Arterial 97.1(H) 94.0 - 97.0 % 07/30/2024 8:17 AM [facility] Carboxyhemoglob in, Arterial 1.0 % 07/30/2024 8:17 AM [facility] Comment: Nonsmokers: 0.5-1.5% COHB ?? Smokers: Variable ??but usually less than 10% ?? Toxic: 20-30% COHB ?? Lethal: Greater than 60% COHB Methemoglobin, Arterial 0.1 <=1.5 % 07/30/2024 8:17 AM [facility] Sodium, Arterial 132(L) 135 - 145 mmol/L 07/30/2024 8:17 AM [facility] Potassium, Arterial 3.9 3.5 - 5.0 mmol/L 07/30/2024 8:17 AM [facility] Chloride, Arterial 105 98 - 107 mmol/L 07/30/2024 8:17 AM [facility] Lactate, Arterial 1.2 0.5 - 2.2 mmol/L 07/30/2024 8:17 AM [facility] Fraction of Inspired Oxygen 21 % 07/30/2024 8:17 AM [facility] PF Ratio 519 Ratio 07/30/2024 8:17 AM [facility] Comment:PF ratio calculated using the non-temperature corrected pO2 result. IONIZED CALCIUM, ARTERIAL 1.15 1.15 - 1.33 mmol/L 07/30/2024 8:17 AM [facility] Blood ARTERIAL BLOOD / Unknown 07/30/2024 8:16 AM EST 07/30/2024 8:17 AM EST Aubree Silverio MD POINT OF CARE TEST ORDERABLES [facility] [place] [address] * (ABNORMAL) Troponin - Single (07/30/2024 8:09 AM EST) Troponin-T, High Sensitivity 8,651(H) <=22 ng/L 07/30/2024 9:06 AM EST [facility] Comment: This patient's troponin [...] troponin value can be found in the [facility] Test Catalog Troponin - [email or web address]/catalogs/565/files/88905 Reference: Fourth Sanford Definition of Myocardial Infarction. Journal of the [place] [employer] 2018;72:4149-6311 Blood VENOUS BLOOD SPECIMEN / Unknown Venipuncture / Unknown 07/30/2024 8:09 AM EST 07/30/2024 8:26 AM EST Aubree Silverio MD CHEMISTRY ORDERABL ES [facility] [place] [address] * POC, GLUCOSE (07/30/2024 7:40 AM EST) Shaheen Jc Glucometer, POC 111 65 - 199 mg/dL 07/30/2024 7:40 AM EST [facility] Comment:Supplemental ranges: <140 mg/dL before meals <180 mg/dL all other times of the day. Blood CAPILLARY BLOOD / Unknown 07/30/2024 7:40 AM EST 07/30/2024 7:40 AM EST Aubree Silverio MD POINT OF CARE TEST ORDERABLES [facility] [place] [address] * (ABNORMAL) CBC (with Diff) (07/30/2024 2:11 AM EST) White Blood Cell 11.25(H) 4.00 - 9.50 x10(3)/mc L 07/30/2024 2:33 AM [facility] Red Blood Cell 4.50(L) 4.58 - 5.54 x10(6)/mc L 07/30/2024 2:33 AM [facility] Hemoglobin 12.2(L) 13.7 - 16.5 g/dL 07/30/2024 2:33 AM [facility] Hematocrit 37.1(L) 40.5 - 48.5 % 07/30/2024 2:33 AM [facility] Mean Cell Volume 82.4(L) 82.9 - 93.1 fL 07/30/2024 2:33 AM [facility] Mean Cell Hemoglobin 27.1(L) 27.5 - 32.1 pg 07/30/2024 2:33 AM [facility] Mean Cell Hemoglobin Concentration 32.9 32.0 - 35.7 g/dL 07/30/2024 2:33 AM [facility] Platelet 166 145 - 357 x10(3)/mc L 07/30/2024 2:33 AM [facility] Mean Platelet Volume 10.6 7.6 - 12.9 fL 07/30/2024 2:33 AM [facility] RDW Standard Deviation 44.6 36.0 - 45.0 fL 07/30/2024 2:33 AM [facility] RDW coefficient of variation 14.6(H) 11.4 - 13.8 % 07/30/2024 2:33 AM [facility] NRBC% auto 0.0 % 07/30/2024 2:33 AM [facility] NRBC Absolute <0.01 <0.01 x10(3)/mc L 07/30/2024 2:33 AM [facility] Neutrophil % 88.9 % 07/30/2024 2:33 AM [facility] Neutrophil Absolute (ANC) - Automated 10.00(H) 1.70 - 6.10 x10(3)/mc L 07/30/2024 2:33 AM [facility] Lymph % 5.1 % 07/30/2024 2:33 AM [facility] Lymph Absolute 0.57(L) 0.90 - 3.20 x10(3)/mc L 07/30/2024 2:33 AM [facility] Monocyte % 5.4 % 07/30/2024 2:33 AM [facility] Monocyte Absolute 0.61 0.30 - 0.90 x10(3)/mc L 07/30/2024 2:33 AM [facility] Eos % 0.0 % 07/30/2024 2:33 AM [facility] Eos Absolute <0.04 0.00 - 0.40 x10(3)/mc L 07/30/2024 2:33 AM [facility] Basophil % 0.2 % 07/30/2024 2:33 AM [facility] Baso Absolute <0.04 0.00 - 0.10 x10(3)/mc L 07/30/2024 2:33 AM [facility] Immature Gran % 0.4 % 2:33 AM [facility] Immature Gran Absolute 0.05(H) 0.00 - 0.04 x10(3)/mc L 07/30/2024 2:33 AM [facility] Blood VENOUS BLOOD SPECIMEN / Unknown Venipuncture / Unknown 07/30/2024 2:11 AM EST 07/30/2024 2:22 AM EST Bridgette Stauffer MD HEMATOLOGY ORDERABLE S [facility] [place] [address] * Magnesium (07/30/2024 2:11 AM EST) Magnesium 1.01 0.69 - 1.07 mMol/L 07/30/2024 2:51 AM [facility] Blood VENOUS BLOOD SPECIMEN / Unknown Venipuncture / Unknown 07/30/2024 2:11 AM EST 07/30/2024 2:22 AM EST Bridgette Stauffer MD CHEMISTRY ORDERABLES Performing Organization Address City/[facility]/ZIP Co de Phone Number [facility] [place] [address] * (ABNORMAL) Basic Metabolic Panel (07/30/2024 2:11 AM EST) Pathologist [facility] Glucose 190 65 - 199 mg/dL 07/30/2024 2:51 AM [facility] Comment:Glucose Concentratio n >=200 mg/dL plus symptoms is consistent with Diabetes Mellitus. Blood Urea Nitrogen 15 10 - 20 mg/dL 07/30/2024 2:51 AM [facility] Creatinine 0.88 0.80 - 1.50 mg/dL 07/30/2024 2:51 AM [facility] Sodium 135 135 - 145 mMol/L 07/30/2024 2:51 AM [facility] Potassium 4.9 3.5 - 5.0 mMol/L 07/30/2024 2:51 AM [facility] Chloride 105 98 - 107 mMol/L 07/30/2024 2:51 AM [facility] Carbon Dioxide 19(L) 22 - 31 mMol/L 07/30/2024 2:51 AM [facility] Anion Gap 11 5 - 15 mMol/L 07/30/2024 2:51 AM EST [facility] Calcium 7.7(L) 8.5 - 10.5 mg/dL 07/30/2024 2:51 AM EST [facility] Est Glomerular Filtration Rate - Male 91 mL/min/1. 73 m?? 07/30/2024 2:51 AM EST [facility] Comment: This patient's estimated [...] AM EST Bridgette Stauffer MD CHEMISTRY ORDERABLES [facility] [place] [address] * (ABNORMAL) Cooximetry, POC (07/30/2024 1:00 AM EST) pO2, Coox 28 mmHg 07/30/2024 1:03 AM EST [facility] Hemoglobin, Coox 12.7(L) 13.7 - 16.5 g/dL 07/30/2024 1:03 AM EST [facility] Oxyhemoglobin, Coox 54.9 % 07/30/2024 1:03 AM [facility] Carboxyhemoglo bin, Coox 1.0 % 07/30/2024 1:03 AM [facility] Comment: Nonsmokers: 0.5-1.5% COHB ?? Smokers: Variable ??but usually less than 10% ?? Toxic: 20-30% COHB ?? Lethal: Greater than 60% COHB Methemoglobin, Coox 0.0 <=1.5 % 07/30/2024 1:03 AM [facility] Blood (Mixed Venous) 07/30/2024 1:00 AM EST 07/30/2024 1:03 AM EST Aubree Silverio MD POINT OF CARE TEST ORDERABLES Performing Organization Address City/State/[facility] Co de Phone Number [facility] [place] [address] * (ABNORMAL) Blood Gas, Arterial POC (07/30/2024 12:57 AM EST) pH, Arterial 7.38 7.35 - 7.45 07/30/2024 12:58 AM [facility] PCO2, Arterial 34(L) 35 - 45 mmHg 07/30/2024 12:58 AM [facility] PO2, Arterial 141(H) 85 - 104 mmHg 07/30/2024 12:58 AM [facility] Bicarbonate, Arterial 19.5(L) 20.0 - 26.0 mmol/L 07/30/2024 12:58 AM [facility] Base Excess, Arterial -5.6(L) -3.0 - 3.0 mmol/L 07/30/2024 12:58 AM [facility] Hemoglobin, Arterial 13.0(L) 13.7 - 16.5 g/dL 07/30/2024 12:58 AM [facility] Oxyhemoglobin, Arterial 98.4(H) 94.0 - 97.0 % 07/30/2024 12:58 AM [facility] Carboxyhemoglobin , Arterial 0.4 % 07/30/2024 12:58 AM [facility] Comment: Nonsmokers: 0.5-1.5% COHB ?? Smokers: Variable ??but usually less than 10% ?? Toxic: 20-30% COHB ?? Lethal: Greater than 60% COHB Methemoglobin, Arterial 0.1 <=1.5 % 07/30/2024 12:58 AM [facility] Sodium, Arterial 130(L) 135 - 145 mmol/L 07/30/2024 12:58 AM [facility] Potassium, Arterial 4.5 3.5 - 5.0 mmol/L 07/30/2024 12:58 AM [facility] Chloride, Arterial 104 98 - 107 mmol/L 07/30/2024 12:58 AM [facility] Lactate, Arterial 1.3 0.5 - 2.2 mmol/L 07/30/2024 12:58 AM [facility] Flow Rate 2.0 L/min 07/30/2024 12:58 AM [facility] IONIZED CALCIUM, ARTERIAL 1.12(L) 1.15 - 1.33 mmol/L 07/30/2024 12:58 AM [facility] Glucose, Arterial 184 65 - 199 mg/dL 07/30/2024 12:58 AM [facility] Comment:Glucose Concentratio n >=200 mg/dL plus symptoms is consistent with Diabetes Mellitus. Blood ARTERIAL BLOOD / Unknown 07/30/2024 12:57 AM EST 07/30/2024 12:58 AM EST Aubree Silverio MD POINT OF CARE TEST ORDERABLES [facility] [place] [address] * (ABNORMAL) Troponin - Single (07/29/2024 10:31 PM EST) Troponin-T, High Sensitivity >10,000(H ) <=22 ng/L 07/29/2024 11:03 PM [facility] Comment: This patient's troponin T concentration [...] troponin value can be found in the [facility] Test Catalog Troponin - https://[email or web address]/catalogs/565/files/90445 Reference: Fourth Sanford Definition of Myocardial Infarction. Journal of the [place] [employer] 2018;72:5727-1384 Blood VENOUS BLOOD SPECIMEN / Unknown Venipuncture / Unknown 07/29/2024 10:31 PM EST 07/29/2024 10:36 PM EST Yrn Ward MD CHEMISTRY ORDERABL ES Performing Organization Address City/[facility]/ZIP Co de Phone Number [facility] [place] [address] * Potassium (07/29/2024 8:11 PM EST) Pathologist [facility] Potassium 4.1 3.5 - 5.0 mMol/L 07/29/2024 8:52 PM EST [facility] Blood VENOUS BLOOD SPECIMEN / Unknown Venipuncture / Unknown 07/29/2024 8:11 PM EST 07/29/2024 8:16 PM EST Aubree Silverio MD CHEMISTRY ORDERABL ES [facility] [place] [address] * (ABNORMAL) Troponin - Single (07/29/2024 8:11 PM EST) Troponin-T, High Sensitivity >10,000(H ) <=22 ng/L 07/29/2024 8:52 PM EST [facility] Comment: This patient's troponin [...] troponin value can be found in the [facility] Test Catalog Troponin - https://[email or web address]/catalogs/565/files/34490 Reference: Fourth Sanford Definition of Myocardial Infarction. Journal of the [place] [employer] 2018;72:7627-9515 Blood VENOUS BLOOD SPECIMEN / Unknown Venipuncture / Unknown 07/29/2024 8:11 PM EST 07/29/2024 8:16 PM EST Aubree Silverio MD CHEMISTRY ORDERABL ES Performing Organization Address City/State/[facility] Co de Phone Number [facility] [place] [address] * (ABNORMAL) Phosphorus (07/29/2024 8:11 PM EST) Phosphorus 2.1(L) 2.5 - 4.5 mg/dL 07/29/2024 8:52 PM EST [facility] Blood VENOUS BLOOD SPECIMEN / Unknown Venipuncture / Unknown 07/29/2024 8:11 PM EST 07/29/2024 8:16 PM EST Aubree Silverio MD CHEMISTRY ORDERABL ES Performing Organization Address City/State/[facility] Co de Phone Number [facility] [place] [address] * POC, GLUCOSE (07/29/2024 8:09 PM EST) Glucometer, POC 142 65 - 199 mg/dL 07/29/2024 8:09 PM EST [facility] Comment:Supplemental ranges: <140 mg/dL before meals <180 mg/dL all other times of the day. Blood CAPILLARY BLOOD / Unknown 07/29/2024 8:09 PM EST 07/29/2024 8:09 PM EST Aubree Silverio MD POINT OF CARE TEST ORDERABLES Performing Organization Address [facility] Co de Phone Number [facility] [place] [address] * ABORH RECHECK (07/29/2024 6:43 PM EST) ABORH Recheck AB POSITIVE 07/29/2024 10:13 PM EST [facility] Blood VENOUS BLOOD SPECIMEN / Unknown Venipuncture / Unknown 07/29/2024 6:43 PM EST 07/29/2024 7:15 PM EST Aubree Silverio MD BLOOD BANK LAB ORD ERABLES Performing Organization Address [facility] Co de Phone Number [facility] [place] [address] * POC, GLUCOSE (07/29/2024 5:57 PM EST) Glucometer, POC 166 65 - 199 mg/dL 07/29/2024 5:57 PM EST [facility] Comment:Supplemental ranges: <140 mg/dL before meals <180 mg/dL all other times of the day. Blood CAPILLARY BLOOD / Unknown 07/29/2024 5:57 PM EST 07/29/2024 5:57 PM EST Aubree Silverio MD POINT OF CARE TEST ORDERABLES [facility] [place] [address] * Type and screen ([facility]/JONG/MAGALIE) (07/29/2024 5:56 PM EST) [facility] ABORH Type AB POSITIVE 07/29/2024 9:44 PM EST [facility] PATIENT HISTORY Not Found 07/29/2024 9:44 PM EST [facility] Expires at [id number] on: 08/01/2024 07/29/2024 9:44 PM EST [facility] ANTIBODY SCREEN AUTOMATED Negative 07/29/2024 9:44 PM EST [facility] T&S only valid at [facility] 07/29/2024 9:44 PM EST [facility] Blood VENOUS BLOOD SPECIMEN / Unknown Venipuncture / Unknown 07/29/2024 5:56 PM EST 07/29/2024 6:07 PM EST Narrative [facility] - 07/29/2024 9:44 PM EST This Type and Screen result is only valid at the [facility] Aubree Silverio MD BLOOD BANK LAB ORD ERABLES Performing Organization Address City/[facility]/ZIP Co de Phone Number [facility] [place] [address] * (ABNORMAL) Troponin - Single (07/29/2024 4:52 PM EST) [facility] Troponin-T, High Sensitivity >10,000(H ) <=22 ng/L 07/29/2024 5:25 PM EST [facility] Comment: This patient's troponin [...] troponin value can be found in the [facility] Test Catalog Troponin - https://[facility].[email or web address]/catalogs/565/files/55773 Reference: Fourth Sanford Definition of Myocardial Infarction. Journal of the [place] [employer] 2018;72:0841-6439 Blood VENOUS BLOOD SPECIMEN / Unknown Venipuncture / Unknown 07/29/2024 4:52 PM EST 07/29/2024 4:57 PM EST Aubree Silverio MD CHEMISTRY ORDERABL ES Performing Organization Address [facility]/ZIP Co de Phone Number [facility] [place] [address] * EKG 12 Lead (07/29/2024 4:21 PM EST) Ventricular rate 72 BPM MUSE SYSTEM Atrial Rate 72 BPM MUSE SYSTEM P-R Interval 168 ms MUSE SYSTEM QRS Duration 82 ms MUSE SYSTEM Q-T Interval 392 ms MUSE SYSTEM QTC Calculated (Bezet) 429 ms MUSE SYSTEM Calculated P Irmo 71 degrees MUSE SYSTEM Calculated R Irmo 77 degrees MUSE SYSTEM Calculated T Irmo 28 degrees MUSE SYSTEM INTERPRETATION Sinus rhythm with Premature supraventricular complexes and Occasional Premature ventricular complexes Low voltage QRS 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) Lateral injury pattern ACUTE RI / STEMI Abnormal ECG When compared with ECG of 29-JUL-2024 13:43, (unconfirmed) Serial changes of evolving Anteroseptal infarct Present Confirmed by MD Marcus, Roverto (1961) on 07/31/2024 5:30:06 AM MUSE SYSTEM 07/29/2024 4:21 PM EST 07/31/2024 5:30 AM EST Aubree Silverio MD ECG ORDERABLES Performing Organization Address City/[facility]/ZIP Co de Phone Number MUSE SYSTEM * (ABNORMAL) Blood Gas, Arterial POC (07/29/2024 4:21 PM EST) pH, Arterial 7.37 7.35 - 7.45 07/29/2024 4:22 PM [facility] PCO2, Arterial 36 35 - 45 mmHg 07/29/2024 4:22 PM [facility] PO2, Arterial 71(L) 85 - 104 mmHg 07/29/2024 4:22 PM [facility] Bicarbonate, Arterial 20.4 20.0 - 26.0 mmol/L 07/29/2024 4:22 PM [facility] Base Excess, Arterial -4.8(L) -3.0 - 3.0 mmol/L 07/29/2024 4:22 PM [facility] Hemoglobin, Arterial 12.2(L) 13.7 - 16.5 g/dL 07/29/2024 4:22 PM [facility] Oxyhemoglobin, Arterial 93.8(L) 94.0 - 97.0 % 07/29/2024 4:22 PM [facility] Carboxyhemoglobin , Arterial 0.5 % 07/29/2024 4:22 PM [facility] Comment: Nonsmokers: 0.5-1.5% COHB ?? Smokers: Variable ??but usually less than 10% ?? Toxic: 20-30% COHB ?? Lethal: Greater than 60% COHB Methemoglobin, Arterial 0.3 <=1.5 % 07/29/2024 4:22 PM [facility] Sodium, Arterial 134(L) 135 - 145 mmol/L 07/29/2024 4:22 PM [facility] Potassium, Arterial 4.2 3.5 - 5.0 mmol/L 07/29/2024 4:22 PM [facility] Chloride, Arterial 107 98 - 107 mmol/L 07/29/2024 4:22 PM [facility] Lactate, Arterial 1.5 0.5 - 2.2 mmol/L 07/29/2024 4:22 PM [facility] Fraction of Inspired Oxygen 21 % 07/29/2024 4:22 PM [facility] PF Ratio 338 Ratio 07/29/2024 4:22 PM [facility] Comment:PF ratio calculated using the non-temperature corrected pO2 result. IONIZED CALCIUM, ARTERIAL 1.12(L) 1.15 - 1.33 mmol/L 07/29/2024 4:22 PM [facility] Glucose, Arterial 181 65 - 199 mg/dL 07/29/2024 4:22 PM [facility] Comment:Glucose Concentratio n >=200 mg/dL plus symptoms is consistent with Diabetes Mellitus. Blood ARTERIAL BLOOD / Unknown 07/29/2024 4:21 PM EST 07/29/2024 4:22 PM EST Aubree Silverio MD POINT OF CARE TEST ORDERABLES Performing Organization Address City/[facility]/ZIP Co de Phone Number [facility] [place] [address] * POC, GLUCOSE (07/29/2024 4:19 PM EST) Glucometer, POC 185 65 - 199 mg/dL 07/29/2024 4:19 PM [facility] Comment:Supplemental ranges: <140 mg/dL before meals <180 mg/dL all other times of the day. Blood CAPILLARY BLOOD / Unknown 07/29/2024 4:19 PM EST 07/29/2024 4:19 PM EST Aubree Silverio MD POINT OF CARE TEST ORDERABLES [facility] [place] [address] * Blood culture (07/29/2024 4:08 PM EST) Blood Culture No growth at 120 hours 08/03/2024 5:01 PM EST [facility] Blood VENOUS BLOOD SPECIMEN / Unknown Venipuncture / Unknown 07/29/2024 4:08 PM EST 07/29/2024 4:15 PM EST Aubree Silverio MD MICROBIOLOGY - BLO OD ORDERABLES Performing Organization Address [facility] Co de Phone Number [facility] [place] [address] * Blood culture (07/29/2024 4:08 PM EST) Blood Culture No growth at 120 hours 08/03/2024 5:01 PM EST [facility] Blood VENOUS BLOOD SPECIMEN / Unknown Venipuncture / Unknown 07/29/2024 4:08 PM EST 07/29/2024 4:26 PM EST Aubree Silverio MD MICROBIOLOGY - BLO OD ORDERABLES Performing Organization Address [facility] de Phone Number [facility] [place] [address] * XR Chest One View (07/29/2024 2:30 PM EST) WORKSTATION ID [id number] DH RAD Anatomical Region Laterality Modality Chest [...] who have questions please contact the health caretaker grounds that requested your imaging first. ? Electronically signed by: Chris Candelaria MD, [facility] ([phone]), at 07/29/2024 3:21 PM Narrative 07/29/2024 3:21 [...] patients who have questions please contactthe health caretaker grounds that requested your imaging first. Electronically signed by: Chris Candelaria MD, [facility]([phone]), at 07/29/2024 3:21 PM Vahe Marvin MD IMG DX ORDERABLES * (ABNORMAL) APTT (07/29/2024 2:03 PM EST) Partial Thromboplastin Time >160(HHH) 25 - 37 sec 07/29/2024 2:56 PM EST [facility] Blood VENOUS BLOOD SPECIMEN / Unknown Venipuncture / Unknown 07/29/2024 2:03 PM EST 07/29/2024 2:13 PM EST Vahe Marvin MD HEMATOLOGY ORDERABLE S Performing Organization Address City/[facility]/ZIP Co de Phone Number [facility] [place] [address] * (ABNORMAL) Prothrombin Time (07/29/2024 2:03 PM EST) Prothrombin Time 14.2(H) 9.4 - 12.5 sec 07/29/2024 2:56 PM EST [facility] International Normalization Ratio 1.3 <=4.9 07/29/2024 2:56 PM EST [facility] Comment: An INR < [...] MD HEMATOLOGY ORDERABLE S Performing Organization Address [facility] Co de Phone Number [facility] [place] [address] * CRP, acute inflammation (07/29/2024 2:03 PM EST) C-Reactive Protein <3.0 <=4.9 mg/L 07/29/2024 2:52 PM EST [facility] Blood VENOUS BLOOD SPECIMEN / Unknown Venipuncture / Unknown 07/29/2024 2:03 PM EST 07/29/2024 2:14 PM EST Vahe Marvin MD CHEMISTRY ORDERABLES Performing Organization Address City/[facility]/ZIP Co de Phone Number [facility] [place] [address] * Lipid Panel (Reflex Direct LDL) (07/29/2024 2:03 PM EST) Cholesterol, Total 133 mg/dL 07/29/2024 2:52 PM [facility] Comment: Desirable: < 200 mg/dL Borderline High: 200 - 239 mg/dL High: > or = 240 mg/dL Triglyceride 45 mg/dL 07/29/2024 2:52 PM [facility] Comment: Normal: <150 mg/dL Borderline High: 150-199 mg/dL High: 200-499 mg/dL Very High: > or =500 mg/dL HDL Cholesterol 58 mg/dL 2:52 PM [facility] Comment:Males: High Risk: <4 0 mg/dL LDL Cholesterol 64 mg/dL 4 2:52 PM [facility] Comment: Desirable: <100 mg/dL Above Desirable: 100-129 mg/dL Borderline High: 130-159 mg/dL High: 160-189 mg/dL Very High: > or =190 mg/dL Note: LDL calculation updated to the NIH LDL formula as of 04/15/2024 Non-HDL Cholesterol 75 mg/dL 07/29/2024 2:52 PM [facility] Comment: Desirable: <130 mg/dL Above Desirable: 130-159 mg/dL Borderline High: 160-189 mg/dL High: 190-219 mg/dL Very High: > or = 220 mg/dL Blood VENOUS BLOOD SPECIMEN / Unknown Venipuncture / Unknown 07/29/2024 2:03 PM EST 07/29/2024 2:14 PM EST [facility] - 07/29/2024 2:52 PM EST [...] artery disease) Vahe Marvin MD CHEMISTRY ORDERABLES [facility] [place] [address] * TSH [place] (07/29/2024 2:03 PM EST) Thyroid Stimulating Hormone 0.70 0.27 - 4.20 mcIU/mL 07/29/2024 2:52 PM EST [facility] Blood VENOUS BLOOD SPECIMEN / Unknown Venipuncture / Unknown 07/29/2024 2:03 PM EST 07/29/2024 2:14 PM EST Vahe Marvin MD CHEMISTRY ORDERABLES [facility] [place] [address] * Hemoglobin A1c (07/29/2024 2:03 PM EST) Pathologist [facility] Hemoglobin A1c 5.3 4.3 - 5.6 % 07/29/2024 2:41 PM EST [facility] Comment: Per ADA guidelines, [...] red blood cell turnover may not be field representatives director of glycemic control. Reference Interval: 4.3 - 5.6% 5.7 - 6.4%: Consistent with prediabetes >=6.5%: Consistent with diagnosis of diabetes mellitus Estimated Average Glucose 07/29/2024 2:41 PM EST [facility] Comment:Estimated Average Gl ucose not appropriate for patients over 70 years of age. Blood VENOUS BLOOD SPECIMEN / Unknown Venipuncture / Unknown 07/29/2024 2:03 PM EST 07/29/2024 2:14 PM EST [facility] - 07/29/2024 2:41 PM EST Estimated average glucose (eAG) is calculated from the equation described in: Quinten ALVES, Rikki J, [place] R, et al. ??Translating the A1C assay into estimated average glucose values. ??Diabetes Care 2008:31(8):9916-6446. Additional resources are available on the ADA website (diabetes.org). Vahe Marvin MD CHEMISTRY ORDERABLES [facility] [place] [address] * (ABNORMAL) CBC (with Diff) (07/29/2024 2:03 PM EST) White Blood Cell 19.50(H) 4.00 - 9.50 x10(3)/mc L 07/29/2024 2:18 PM EST [facility] Red Blood Cell 4.81 4.58 - 5.54 x10(6)/mc L 07/29/2024 2:18 PM [facility] Hemoglobin 13.1(L) 13.7 - 16.5 g/dL 07/29/2024 2:18 PM EST [facility] Hematocrit 40.1(L) 40.5 - 48.5 % 07/29/2024 2:18 PM EST [facility] Mean Cell Volume 83.4 82.9 - 93.1 fL 07/29/2024 2:18 PM EST [facility] Mean Cell Hemoglobin 27.2(L) 27.5 - 32.1 pg 07/29/2024 2:18 PM [facility] Mean Cell Hemoglobin Concentration 32.7 32.0 - 35.7 g/dL 07/29/2024 2:18 PM EST [facility] Platelet 236 145 - 357 x10(3)/mc L 07/29/2024 2:18 PM [facility] Mean Platelet Volume 10.6 7.6 - 12.9 fL 07/29/2024 2:18 PM EST [facility] RDW Standard Deviation 43.7 36.0 - 45.0 fL 07/29/2024 2:18 PM [facility] RDW coefficient of variation 14.3(H) 11.4 - 13.8 % 07/29/2024 2:18 PM [facility] NRBC% auto 0.0 % 07/29/2024 2:18 PM [facility] NRBC Absolute <0.01 <0.01 x10(3)/mc L 07/29/2024 2:18 PM [facility] Neutrophil % 93.6 % 07/29/2024 2:18 PM [facility] Neutrophil Absolute (ANC) - Automated 18.28(H) 1.70 - 6.10 x10(3)/mc L 07/29/2024 2:18 PM [facility] Lymph % 2.7 % 07/29/2024 2:18 PM [facility] Lymph Absolute 0.52(L) 0.90 - 3.20 x10(3)/mc L 07/29/2024 2:18 PM [facility] Monocyte % 2.9 % 07/29/2024 2:18 PM [facility] Monocyte Absolute 0.56 0.30 - 0.90 x10(3)/mc L 07/29/2024 2:18 PM [facility] Eos % 0.0 % 07/29/2024 2:18 PM [facility] Eos Absolute <0.04 0.00 - 0.40 x10(3)/mc L 07/29/2024 2:18 PM [facility] Basophil % 0.3 % 07/29/2024 2:18 PM [facility] Baso Absolute 0.05 0.00 - 0.10 x10(3)/mc L 07/29/2024 2:18 PM [facility] Immature Gran % 0.5 % 2:18 PM [facility] Immature Gran Absolute 0.09(H) 0.00 - 0.04 x10(3)/mc L 07/29/2024 2:18 PM [facility] Blood VENOUS BLOOD SPECIMEN / Unknown Venipuncture / Unknown 07/29/2024 2:03 PM EST 07/29/2024 2:13 PM EST Vahe Marvin MD HEMATOLOGY ORDERABLE S [facility] [place] [address] * Phosphorus (07/29/2024 2:03 PM EST) Phosphorus 2.5 2.5 - 4.5 mg/dL 07/29/2024 2:52 PM EST [facility] Blood VENOUS BLOOD SPECIMEN / Unknown Venipuncture / Unknown 07/29/2024 2:03 PM EST 07/29/2024 2:14 PM EST Vahe Marvin MD CHEMISTRY ORDERABLES Performing Organization Address City/[facility]/ZIP Co de Phone Number [facility] [place] [address] * Magnesium (07/29/2024 2:03 PM EST) Pathologist [facility] Magnesium 0.70 0.69 - 1.07 mMol/L 07/29/2024 2:52 PM EST [facility] Blood VENOUS BLOOD SPECIMEN / Unknown Venipuncture / Unknown 07/29/2024 2:03 PM EST 07/29/2024 2:14 PM EST Vahe Marvin MD CHEMISTRY ORDERABLES [facility] [place] [address] * (ABNORMAL) Comprehensive metabolic panel (07/29/2024 2:03 PM EST) Glucose 243(H) 65 - 199 mg/dL 07/29/2024 3:11 PM EST [facility] Comment:Glucose Concentratio n >=200 mg/dL plus symptoms is consistent with Diabetes Mellitus. Blood Urea Nitrogen 13 10 - 20 mg/dL 07/29/2024 3:11 PM EST [facility] Creatinine 0.88 0.80 - 1.50 mg/dL 07/29/2024 3:11 PM [facility] Sodium 138 135 - 145 mMol/L 07/29/2024 3:11 PM [facility] Potassium 3.6 3.5 - 5.0 mMol/L 07/29/2024 3:11 PM [facility] Chloride 104 98 - 107 mMol/L 07/29/2024 3:11 PM [facility] Carbon Dioxide 19(L) 22 - 31 mMol/L 07/29/2024 3:11 PM [facility] Anion Gap 15 5 - 15 mMol/L 07/29/2024 3:11 PM [facility] Calcium 8.0(L) 8.5 - 10.5 mg/dL 07/29/2024 3:11 PM [facility] Protein, Total 6.0(L) 6.1 - 8.0 g/dL 07/29/2024 3:11 PM [facility] Albumin 3.6 3.2 - 5.2 g/dL 07/29/2024 3:11 PM [facility] Aspartate Aminotransferase 07/29/2024 3:11 PM [facility] Comment:Unable to report due to hemolysis. Alanine Aminotransferase 56(H) 0 - 55 unit/L 07/29/2024 3:11 PM [facility] Alkaline Phosphatase 58 40 - 130 unit/L 07/29/2024 3:11 PM [facility] Bilirubin, Total 0.5 <=1.3 mg/dL 07/29/2024 3:11 PM [facility] Est Glomerular Filtration Rate - Male 91 mL/min/1. 73 m?? 07/29/2024 3:11 PM [facility] Comment: This patient's estimated GFR was [...] PM EST Vahe Marvin MD CHEMISTRY ORDERABLES [facility] [place] [address] * (ABNORMAL) Troponin - Single (07/29/2024 2:03 PM EST) Pathologist [facility] Troponin-T, High Sensitivity >10,000(H ) <=22 ng/L 07/29/2024 2:52 PM EST [facility] Comment: This patient's troponin [...] troponin value can be found in the [facility] Laboratory Test Catalog Troponin - https://one-.testcatalog.org/catalogs/565/files/46699 Reference: Fourth Sanford Definition of Myocardial Infarction. Journal of the [place] [employer] 2018;72:0450-5353 Blood VENOUS BLOOD SPECIMEN / Unknown Venipuncture / Unknown 07/29/2024 2:03 PM EST 07/29/2024 2:14 PM EST Vahe Marvin MD CHEMISTRY ORDERABLES [facility] [place] [address] * (ABNORMAL) Blood Gas, Venous POC (07/29/2024 2:01 PM EST) pH, Venous 7.30(L) 7.32 - 7.42 07/29/2024 2:02 PM EST [facility] PCO2, Venous 42 38 - 58 mmHg 07/29/2024 2:02 PM [facility] PO2, Venous 39 16 - 65 mmHg 07/29/2024 2:02 PM [facility] Bicarbonate, Venous 20.1(L) 22 - 31 mmol/L 07/29/2024 2:02 PM [facility] Base Excess, Venous -6.4(L) 1.9 - 4.5 mmol/L 07/29/2024 2:02 PM [facility] Hemoglobin, Venous 14.2 13.7 - 16.5 g/dL 07/29/2024 2:02 PM [facility] Oxyhemoglobin, Venous 69.3 % 07/29/2024 2:02 PM [facility] Carboxyhemoglobin , Venous 0.8 % 07/29/2024 2:02 PM [facility] Comment: Nonsmokers: 0.5-1.5% COHB ?? Smokers: Variable ??but usually less than 10% ?? Toxic: 20-30% COHB ?? Lethal: Greater than 60% COHB Methemoglobin, Venous 0.3 <=1.5 % 07/29/2024 2:02 PM [facility] Sodium, Venous 137 135 - 145 mmol/L 07/29/2024 2:02 PM [facility] Potassium, Venous 3.6 3.5 - 5.0 mmol/L 07/29/2024 2:02 PM [facility] Chloride, Venous 103 98 - 107 mmol/L 07/29/2024 2:02 PM EST [facility] Glucose, Venous 229(H) 65 - 199 mg/dL 07/29/2024 2:02 PM EST [facility] Comment:Glucose Concentratio n >=200 mg/dL plus symptoms is consistent with Diabetes Mellitus. Lactate, Venous 3.1(H) 0.5 - 2.2 mmol/L 07/29/2024 2:02 PM EST [facility] Ionized Calcium, Venous 1.11(L) 1.15 - 1.33 mmol/L 07/29/2024 2:02 PM EST [facility] Blood VENOUS BLOOD SPECIMEN / Unknown 07/29/2024 2:01 PM EST 07/29/2024 2:02 PM EST Vahe Marvin MD POINT OF CARE TEST O RDERABLES Performing Organization Address City/State/[facility] Co de Phone Number [facility] [place] [address] * CARDIAC CATHETERIZATION (07/29/2024 1:20 PM EST) Anatomical Region Laterality Modality Other Narrative 07/29/2024 2:02 PM EST ?[facility] ? Cardiac Catheterization/Intervention Report ? Patient Name: Korey Montoya Driss ? Procedure Date: 07/29/2024 ? A #: [id number] ? Primary Physician: Vahe Marvin ? Case #: [id number] ? File Name: [id number] ? Catheterization Order Number: [id number] ? [facility] ? Final Report [place], [place] ? Patient Name: ? Korey P. Montoya ?ID#: ?[id number] ? : ?1950 ? Procedure Date: ? [...] procedure was Emergent. The indication for ?the agriculture laboratory technician visit is ACS less than or equal [...] 3.5 guiding catheter and a 3.5 Fr [place] [facility] [place] [address] [address] ??20 Mhz using ?Manual pullback. ??Imaging [...] A premounted 3.00 x 22 mm [place] (LOW) was deployed ? with a maximum [...] atmospheres. ??A premounted 3.00 x 08 mm [place] (LOW) ? was deployed with a maximum [...] dose administered prior to arrival in the agriculture laboratory technician. ?Recommended anti-platelet/anti-thrombotic regimen: ?Start aspirin 81 mg daily now and continue for 12 months then stop. ?Start clopidogrel 75 mg daily now and continue for indefinitely. ?These recommendations are made at the time of the intervention. Patient ?and provider preferences or a changing clinical situation may require ?modification of this regimen. Consult [facility] Interventional Cardiology for ?questions. ?The 1 year [...] able ?to start weaning his inotropes/vasopressors. A [place] catheter was ?placed demonstrating improvement in his hemodynamics and the impella site ?was perclosed and hemostatic gauze was applied with excellent result. ?WIll transfer to the [facility] for further management. ?The attending physician was present for the entire procedure. ?Dr. Vahe Marvin M.D. was present during the moderate sedation ?intraservice time as documented by the sedation nurse. ??Case time = 01:26. ?Dr. Vahe Marvin M.D. performed the coronary angiography, left heart ?catheterization, IVUS # coronary, stent insertion-coronary, oximetry, ABG, ?transthoracic echo , ventricular assist device insertion, right heart ?catheterization, [place] (flow directed cath) insertion, access site ?angiography, vascular ultrasound, venous line / sheath insert and vascular ?closure device. ? Vahe Marvin M.D. ? Electronically Signed by: Vahe Marvin M.D. ? Report Finalized: 07/29/2024 ??13:55 ? Report Last Ammended: 07/30/2024 ??10:15 ? Procedure Note Vahe Marvin MD - 07/30/2024 [facility] Cardiac Catheterization/Intervention Report Patient Name: Korey Montoya Procedure Date: 07/29/2024 A #: [id number] Primary Physician: Vahe Marvin Case #: [id number] File Name: [id number] Catheterization Order Number: [id number] [facility] FinalReport [place], [place] Patient Name: Korey Montoya ID#:[id number] :1950 Procedure Date: July 29, 2024 Case [...] diagnostic procedure was Emergent. Theindication for the agriculture laboratory technician visit is ACS less than or equal [...] 3.5 guiding catheter and a 3.5 Fr [place] [facility] [place] [address] [address] 20 Mhzusing Manual pullback. Imaging was [...] The priority for the procedure was Emergent.The [facility] indication for the procedure was STEMI-Immediate PCI [...] The lesion was predilated with a 2.00mm [id number] MM balloon with a maximum inflation pressure of 12atmospheres. A premounted 3.00 x 22 mm [place] (LOW) wasdeployed with a maximum inflation pressure [...] A premounted 3.00 x 08 mm [place](LOW) was deployed with a maximum inflation pressure [...] dose administered prior to arrival in the agriculture laboratory technician. Recommended anti-platelet/anti-thrombotic regimen: Start aspirin 81 mg daily now and continue for 12 months then stop. Start clopidogrel 75 mg daily now and continue for indefinitely. These recommendations are made at the time of the intervention.Patient and provider preferences or a changing clinical situation mayrequire modification of this regimen. Consult [facility] Interventional Cardiologyfor questions. The 1 year bleeding [...] wereable to start weaning his inotropes/vasopressors. A [place] catheterwas placed demonstrating improvement in his [...] ventricular assist device insertion, right heart catheterization, [place] (flow directed cath) insertion, access site angiography, vascular ultrasound, venous line / sheath insert andvascular closure device. Vahe Marvin M.D. Electronically Signed by: Vahe Marvin M.D. Report Finalized: 07/29/2024 13:55 Report Last Ammended: 07/30/2024 10:15 Vahe Marvin MD CARDIAC CATH ORDERAB LES * (ABNORMAL) BLOOD GAS, POC (07/29/2024 12:46 PM EST) Sodium, POC 139 135 - 145 mmol/L 07/30/2024 7:30 AM EST [facility] Potassium, POC 3.4(L) 3.5 - 5.0 mmol/L 07/30/2024 7:30 AM [facility] pH, POC 7.33(L) 7.35 - 7.45 07/30/2024 7:30 AM [facility] Ionized Calcium, POC 1.13(L) 1.15 - 1.33 mmol/L 07/30/2024 7:30 AM [facility] pCO2, POC 38 35 - 45 mmHg 07/30/2024 7:30 AM [facility] pO2, POC 94 85 - 104 mmHg 07/30/2024 7:30 AM [facility] Base Excess, POC -6.0(L) -3.0 - 3.0 mmol/L 07/30/2024 7:30 AM [facility] Hematocrit, POC 39.0(L) 40.5 - 48.5 %PCV 07/30/2024 7:30 AM [facility] Hemoglobin, POC 13.3(L) 13.7 - 16.5 g/dL 07/30/2024 7:30 AM [facility] Comment:The calculation of h emoglobin from hematocrit assumes a normal MCHC. Bicarbonate, POC 19.8(L) 20.0 - 26.0 mmol/L 07/30/2024 7:30 AM [facility] Carbon Dioxide, POC 21(L) 22 - 31 mmol/L 07/30/2024 7:30 AM [facility] Blood VENOUS BLOOD SPECIMEN / Unknown 07/29/2024 12:46 PM EST 07/30/2024 7:30 AM EST Vahe Marvin MD POINT OF CARE TEST O RDERABLES [facility] [place] [address] * (ABNORMAL) BLOOD GAS, POC (07/29/2024 12:12 PM EST) Sodium, POC 135 135 - 145 mmol/L 07/30/2024 7:30 AM [facility] Potassium, POC 3.8 3.5 - 5.0 mmol/L 07/30/2024 7:30 AM [facility] pH, POC 7.27(LLL) 7.35 - 7.45 07/30/2024 7:30 AM [facility] Ionized Calcium, POC 1.14(L) 1.15 - 1.33 mmol/L 07/30/2024 7:30 AM [facility] pCO2, POC 43 35 - 45 mmHg 07/30/2024 7:30 AM [facility] pO2, POC 131(H) 85 - 104 mmHg 07/30/2024 7:30 AM [facility] Base Excess, POC -7.0(L) -3.0 - 3.0 mmol/L 07/30/2024 7:30 AM [facility] Hematocrit, POC 36.0(L) 40.5 - 48.5 %PCV 07/30/2024 7:30 AM [facility] Hemoglobin, POC 12.2(L) 13.7 - 16.5 g/dL 07/30/2024 7:30 AM [facility] Comment:The calculation of h emoglobin from hematocrit assumes a normal MCHC. Bicarbonate, POC 19.7(L) 20.0 - 26.0 mmol/L 07/30/2024 7:30 AM [facility] Carbon Dioxide, POC 21(L) 22 - 31 mmol/L 07/30/2024 7:30 AM [facility] Blood VENOUS BLOOD SPECIMEN / Unknown 07/29/2024 12:12 PM EST 07/30/2024 7:30 AM EST Vahe Marvin MD POINT OF CARE TEST O RDERABLES [facility] [place] [address] documented in this encounter Visit Diagnoses Not [...] Routine documented in this encounter Care Teams Numerical Control Programmer Relationship Specialty Start Date End Date Alexia Mtz, LEVEL VIAL SETTER [address] [place] [address] PCP - General Family Medicine 07/30/24 documented as of this encounter
--- OUTSIDE RECORDS SUMMARY | 2024-08-24 11:24 | XMS_ITS | Encounter Summary ---
Author Organization [facility] Address [facility] [place] [address] Care Team Providers Care Manager Surgery Name Role Phone Yoel Artis FREDRICK Primary Care Provider [phone] Encounter Details Date Type Department Care Team (Late st Contact Info) Description 07/29/2024 [place] [phone] Ivan Hernandez MD [facility] [place] [address] Social History Tobacco Use Types Packs/Day Years Used Date Smoking Tobacco: Former Cigarettes Smokeless Tobacco: Never Alcohol Use Standard Drinks/Week Comments Not Currently 0 (1 standard drink = 0.6 oz pur e alcohol) [facility] Utilities Answer Date Recorded In the past 12 months has e [email or web address], gas, oil, or water [employer] threatened to shut off services in your [...] any time in the past 12 m [facility], were you homeless or living in a correction (including now)? No 07/30/2024 IPV Inpatient Questions [...] 9:50 AM Hospital to which patient presented: [facility] If Hospital to which patient presented= [facility]: ED Walk In Medical History (prior to [...] Unfractionated Heparin Plan STEMI Alert called: Yes Drupal Programmer Activated by: Web Interface Developer Initial Disposition: Admit Drupal Programmer documented in this encounter Plan of Treatment Upcoming Encounters Date Type Department Care Team (Late st Contact Info) Description 10/01/2024 10:00 AM EST Office Visit Cardiology at [address] [phone] Mushtaq Murphy APRN documented as of this encounter Visit Diagnoses Not on filedocumented in this encounter Care Teams Manager Surgery Relationship Specialty Start Date End Date Yoel Artis APRN [address] [place] [address] PCP - General Internal Medicine 11/18/22 07/29/24 documented as of this encounter
--- OUTSIDE RECORDS SUMMARY | 2024-08-24 11:24 | XMS_ITS | Encounter Summary ---
Author Organization [facility] [place] [address] Care Team Providers Care Sed [employer] Teacher Name Role Phone Alexia Mtz FISH FILLETER Primary Care Provider [phone] Encounter Details Date Type Department Care Team (Late st Contact Info) Description 04/23/2024 Lab [place] [address] Alexia Mtz, FISH FILLETER [address] [place], [place] [phone] Elevated prostate specific antigen (PSA) Social History [...] AM EST Office Visit Cardiology at [address] [phone] Mushtaq Murphy APRN documented as of this encounter Procedures Procedure Name Priority Date/Time Associated Diagnosis Comments PSA (ULTRASENSITIVE), TOTAL AND FREE Routine 04/23/2024 1:09 PM EDT Elevated prostate specific antigen (PSA) documented in this encounter Results * (ABNORMAL) PSA (Ultrasensitive), total and free (04/23/2024 1:09 PM EDT) Prostate Specific Antigen (Ultrasensitive) 5.24(H) 0.00-4.00 ng/mL ng/ml 04/23/2024 5:18 PM EDT [facility] Comment:The reference interv al [...] Free 1.1 ng/ml 04/23/2024 5:18 PM EDT [facility] Comment:This result was gene rated using a [employer] immunoassay. Results obtained from other methods or manufacturers cannot be used interchangeably with this method. PSA % Free 21 % 04/23/2024 5:18 PM EDT [facility] Comment: Probability of finding BUREAU DIRECTOR on needle biopsy by age in years: [...] PM EDT Alexia Mtz APRN CHEMISTRY ORDERABLES [facility] [place] [address] documented in this encounter Visit Diagnoses Diagnosis Elevated prostate specific antigen (PSA) documented in this encounter Care Teams [employer] Teacher Relationship Specialty Start Date End Date Alexia Mtz APRN [address] [place] [phone] PCP - General Family Medicine 07/30/24 documented as of this encounter
--- OUTSIDE RECORDS SUMMARY | 2024-08-24 11:24 | XMS_ITS | Encounter Summary ---
Author Organization [facility] [place] [address] Care Team Providers Care Retail Sales Vitamin Consultant Name Role Phone Yoel Artis Ute ALCALA Primary Care Provider [phone] Encounter Details Date Type Department Care Team (Late st Contact Info) Description 07/29/2024 Interpretation Only [facility] [address] [place] [phone] Chaparro Montana MD [address] [place] [address] Social History Tobacco Use Types Packs/Day Years Used Date Smoking Tobacco: Former Cigarettes Smokeless Tobacco: Never Alcohol Use Standard Drinks/Week Comments Not Currently 0 (1 standard drink = 0.6 oz pur e alcohol) [facility] Utilities Answer Date Recorded In the past 12 months has [employer], gas, oil, or water [employer] threatened to shut off services in your [...] any time in the past 12 m [facility], were you homeless or living in a intermediate (including now)? No 07/30/2024 IPV Inpatient Questions [...] 10:00 AM EST Office Visit Cardiology at [address] [phone] Mushtaq Murphy APRN documented as of this encounter Procedures Procedure Name Priority Date/Time Associated Diagnosis Comments XR CHEST ONE VIEW STAT 07/29/2024 10: 50 AM EST documented in this encounter Results * XR Chest One View (07/29/2024 10:50 AM EST) PT CLASS E RAD ADMITDTTM [id number] RAD PT RAD MD INFO [id number]^Jordy henry^Chaparro RAD EXAM DESC XCXR1^XR Chest 1 [...] who have questions please contact the health ocular care technologist that requested your imaging first. ? Narrative [...] patients who have questions please contactthe health ocular care technologist that requested your imaging first. Chaparro Montana MD IMG DX ORDERABLES documented in this encounter Visit Diagnoses Not on filedocumented in this encounter Care Teams Retail Sales Vitamin Consultant Relationship Specialty Start Date End Date Yoel Artis APRN [address] [place] [id number] PCP - General Internal Medicine 11/18/22 07/29/24 documented as of this encounter
--- OUTSIDE RECORDS SUMMARY | 2024-08-24 11:24 | XMS_ITS | Encounter Summary ---
[place] [address] Care Team Providers Care Field Crop Farmer Name Role Phone Yoel Artis Ute ALCALA Primary Care Provider [phone] Reason for Visit * Auth/Cert (Routine) Specialty Diagnoses / Procedures Referred By Theodore t Referred To Contact Diagnoses STEMI (ST elevation myocardial infarction) STEMI Procedures ER IPI Vahe Marvin MD [facility] [address] [facility] Referral ID Status Reason Start Date Expiration Date Visits Re quested Visits Authorized [id number] 1 1 Encounter Details Date Type Department Care Team (Late st Contact Info) Description 07/29/2024 12:00 PM EST - 07/29/2024 12:54 PM EST Surgery [place] [address] Vahe Marvin MD [facility] [address] CARDIAC CATHETERIZATION Social History Tobacco Use Types Packs/Day Years Used Date Smoking Tobacco: Former Cigarettes Smokeless Tobacco: Never Alcohol Use Standard Drinks/Week Comments Not Currently 0 (1 standard drink = 0.6 oz pur e alcohol) [facility] Utilities Answer Date Recorded In the past 12 months has [employer], gas, oil, or water company threatened [...] any time in the past 12 m [facility], were you homeless or living [...] Korey Montoya Patient Age: 74 y.o. Language: Emirati Race: White Ethnicity: Not nor Admit date: [...] please contact your inpatient physician through the [facility] Promotions Associate . Issues afterhours and on weekends will [...] EKG. Patient transferred via air ambulance to [facility] on 07/29 for LHC and LOW to [...] EKG. Was transferred via air ambulance to [facility] for further management and LHC demonstrated 100% occlusion. No significant RCA, LMCA, or LCX disease. LOW placed in LAD with some residual distal disease meriting placement of overlapping distal stent. TTE showed apical akinesis and inferior hypokinesis with EF 20%. RHC showed elevated filling pressures. Impella placed and P-level 6 at time of transfer to [facility]. CI initially 1.97, improved [...] the next year. Access was via right CYANIDE POT HARDENER and this sitewas clean, dry and intact [...] for Chest pain. Replaces: nitroGLYcerin 400 mcg/spray [place], Non-Aerosol 0.4 mg Quantity: 90 tablet Refills: [...] Refills: 0 STOPPED Medications nitroGLYcerin 400 mcg/spray [place], Non-Aerosol Commonly known as: NITROLINGUAL Replaced by: [...] of one year. After this time, your shirt finisher will determine if you need to continue [...] away. Stay on the phone. The emergency miter grinder operator will tell you what to do. [...] appointments: During 8am-5pm Tuesday through Tuesday call [phone] to speak with a nurse in the cardiology clinic All other times call [phone] and ask to speak to the acoustical material worker classification officer. Follow up Appointments: PCP Alexia Mtz, STUDIO HAND [phone]. Please call to establish a follow up appointment within 1-2 weeks of discharge. Cardiology. Referral to heart failure has been sent. General Instructions None Future Appointments and Orders Future Orders Complete By Expires Referral to Cardiac Rehab [[id number] Custom] As directed Process Instructions: If no progress note charted, please enter Clinical details in comments. Scheduling Instructions: Questions: My question or request is: STEMI, PCI- cardiac rehab at [facility] Referral to Cardiology [REF12 [...] of one year. After this time, your shirt finisher will determine if you need to continue [...] away. Stay on the phone. The emergency miter grinder operator will tell you what to do. [...] appointments: During 8am-5pm Tuesday through Tuesday call [phone] to speak with a nurse in the cardiology clinic All other times call [phone] and ask to speak to the acoustical material worker classification officer. Follow up Appointments: PCP Alexia Mtz, STUDIO HAND [phone]. Please call to establish a follow up [...] EKG. Patient transferred via air ambulance to [facility] on 07/29 for LHC and LOW to LAD for 100% occlusion Social History: Pt lives with his in a 1 level home with 2 NAOMI. 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 He [...] Total time: 35 (tef) minutes Time IN/OUT: [id number] ZAIDA DUBOSE PT Pager: [phone] Physical Therapy Inpatient Rehabilitation Department * Yrn Velazquez MD - 08/03/2024 10:38 AM EST CV HOSPITALIST 2 - [facility] DAILY PROGRESS NOTE Page [phone] to reach a provider 04/04 Admit Date: [...] or before 29-JUL-2024) Lateral injury pattern ACUTE [place] / STEMI Abnormal ECG When compared with [...] Compared to the overnight study by the classification officer fellow the impella position is stable. The [...] the telemetry from the last [facility] hours. [facility] ASSESSMENT: Korey Montoya is a 74 y.o. male w/ PMH of hypertension, HLD, and BPH who presents for chief concern of chest pain after being found to have ST elevations on EKG. Patient transferred via air ambulance to [facility] on 07/29 for LHC and LOW to [...] be determined OT: PCP Alexia Mtz, FREDRICK [phone] * Zaida Dubose, PT - 08/02/2024 2:08 PM EST Physical Therapy Evaluation Patient profile: Korey Montoya is a 74 y.o. male w/ PMH of hypertension, HLD, and BPH who presents for chief concern of chest pain after being found to have ST elevations on EKG. Patient transferred via air ambulance to [facility] on 07/29 for LHC and LOW to LAD for 100% occlusion Social History: Pt lives with his in a 1 level home with 2 NAOMI. 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 He drives. home to assist as needed. Precautions/Special Considerations: At risk to fall; recent STEMI Mobility and Positioning Recommendations: OOB to chair with 1 cg assist; rolling walker Pt to ambulate 3-4x/daily with 1 assist; walker or trial without device Please encourage up to chair for meal times as able. Pt seen for evaluation today in the [facility]. Pt in the bed [...] Total time: 37 (eval) minutes Time IN/OUT: [id number] ZAIDA DUBOSE PT Pager: [phone] Physical Therapy Inpatient Rehabilitation Department * Gagan [...] EKG. Patient transferred via air ambulance to [facility] on 07/29 for LHC and LOW to LAD for 100% occlusion. TTE showed apical akinesis and inferior hypokinesis with EF 20%. RHC showed elevated filling pressures. Impella placed and P-level 6 at time of transfer to [facility]. CI initially 1.97, improved [...] PCP: Alexia Mtz APRN PCP phone number: [phone] Date of Admission: 07/29/2024 ( Hospital Day 4 days ) Attending:Bridgette Stauffer MD ID: Korey Montoya is a 74 y.o. male w/ PMH of hypertension, HLD, and BPH on Hospital Day4 for chief concern of chest pain after being found to have ST elevations on EKG. Patient transferred via air ambulance to [facility] on 07/29 for LHC and LOW to [...] 07/29/24 1621 PHART 7.48* 7.44 7.38 7.37 [id number] 29* 29* 34* 36 PO2ART 71* 109* 141* 71* XOK4YNC 20.6 19.4* 19.5* 20.4 VBG (Venous Blood Gas) Recent Labs 07/29/24 1401 PHVEN 7.30* PO2VEN 39 WQX1MHH 20.1* Mixed Venous Sat No results for input(s): C5PJNI5 in the last 168 hours. Objective: Vitals [...] 07/29/24 1621 PHART 7.48* 7.44 7.38 7.37 IUS7SLS 29* 29* 34* 36 PO2ART 71* 109* 141* 71* VTM5HXG 20.6 19.4* 19.5* 20.4 VBG (Venous Blood Gas) Recent Labs 07/29/24 1401 PHVEN 7.30* PO2VEN 39 LUZ9UUQ 20.1* Mixed Venous Sat No results for input(s): J7BRDG9 in the last 168 hours. Microbiology: Microbiology Results (Last 30 days) Procedure Component Value Units Date/Time Blood culture [[id number]] Collected: 07/29/24 160 Lab Status: Preliminary result Specimen: Blood, Venous Updated: 08/01/24 170 Blood Culture No growth at 72 hours Blood culture [[id number]] Collected: 07/29/241607 Lab Status: Preliminary result Specimen: Blood, Venous Updated: 08/01/24 170 Blood Culture No growth at 72 hours Imaging: Results for orders placed or performed during the hospital encounter of 07/29/24 XR Chest One View (Exam End: 07/29/2024 2:30 PM) Result Value WORKSTATION ID [id number] Impression 1. No pulmonary edema. 2. No pleural effusion. 3. No pneumothorax. Thank you for letting us participate in the care of this patient. If you are a health care provider and have any questions regarding this report, please contact the number below. For patients who have questions please contact the health care center manager that requested your imaging first. ( 07/30/24) [...] Compared to the overnight study by the classification officer fellow the impella position is stable. The [...] EKG. Patient transferred via air ambulance to [facility] on 07/29 for LHC and LOW to [...] (start ARB today). Transfer to floor. Krystal Parekr MD, [facility] Staff Manager Pricing mailing machine helper * Gagan Catherine MD - 08/01/2024 11:12 [...] EKG. Patient transferred via air ambulance to [facility] on 07/29 for LHC and LOW to LAD for 100% occlusion. TTE showed apical akinesis and inferior hypokinesis with EF 20%. RHC showed elevated filling pressures. Impella placed and P-level 6 at time of transfer to [facility]. CI initially 1.97, improved to 2.2 After impella. Received about 3 L of fluid during procedural course. Patient initially required norepinephrine 30, epinephrine 10, and vasopressin 0.04 for hemodynamic support, which was weaned upon arrival to [facility] to norepinephrine 20and levo [...] PCP: Alexia Mtz APRN PCP phone number: [phone] Date of Admission: 07/29/2024 ( Hospital Day 3 days ) Attending:Krystal Parker MD ID: Korey Montoya is a 74 y.o. male w/ PMH of hypertension, HLD, and BPH on Hospital Day3 for chief concern of chest pain after being found to have ST elevations on EKG. Patient transferred via air ambulance to [facility] on 07/29 for LHC and LOW to [...] 07/29/24 1621 PHART 7.48* 7.44 7.38 7.37 [id number] 29* 29* 34* 36 PO2ART 71* 109* 141* 71* WYV4NFC 20.6 19.4* 19.5* 20.4 VBG (Venous Blood Gas) Recent Labs 07/29/24 1401 PHVEN 7.30* PO2VEN 39 PJX0HME 20.1* Mixed Venous Sat No results for input(s): Q9FKUY9 in the last 168 hours. PA Catheter [...] 07/29/24 1621 PHART 7.48* 7.44 7.38 7.37 AWY2WEW 29* 29* 34* 36 PO2ART 71* 109* 141* 71* OCK6GTK 20.6 19.4* 19.5* 20.4 VBG (Venous Blood Gas) Recent Labs 07/29/24 1401 PHVEN 7.30* PO2VEN 39 OKK2AMU 20.1* Mixed Venous Sat No results for input(s): N7YUOH0 in the last 168 hours. Microbiology: Microbiology Results (Last 30 days) Procedure Component Value Units Date/Time Blood culture [[id number]] Collected: 07/29/241607 Lab Status: Preliminary result Specimen: Blood, Venous Updated: 07/31/241700 Blood Culture No growth at 48 hours Blood culture [[id number]] Collected: 07/29/241607 Lab Status: Preliminary result Specimen: Blood, Venous Updated: 07/31/241700 Blood Culture No growth at 48 hours Imaging: Results for orders placed or performed during the hospital encounter of 07/29/24 XR Chest One View (Exam End: 07/29/2024 2:30 PM) Result Value WORKSTATION ID [id number] Impression 1. No pulmonary edema. 2. No pleural effusion. 3. No pneumothorax. Thank you for letting us participate in the care of this patient. If you are a health care provider and have any questions regarding this report, please contact the number below. For patients who have questions please contact the health care center manager that requested your imaging first. ( 07/30/24) [...] Compared to the overnight study by the classification officer fellow the impella position is stable. The [...] EKG. Patient transferred via air ambulance to [facility] on 07/29 for LHC and LOW to [...] with him; questions answered. Krystal Parker MD, [facility] Staff Manager Pricing mailing machine helper * Krytsal Parker MD - 07/31/2024 1:06 PM EST [...] EKG. Patient transferred via air ambulance to [facility] on 07/29 for LHC and LOW to LAD for 100% occlusion. TTE showed apical akinesis and inferior hypokinesis with EF 20%. RHC showed elevated filling pressures. Impella placed and P-level 6 at time of transfer to [facility]. CI initially 1.97, improved to 2.2 After impella. Received about 3 L of fluid during procedural course. Patient initially required norepinephrine 30, epinephrine 10, and vasopressin 0.04 for hemodynamic support, which was weaned upon arrival to [facility] to norepinephrine 20and levo [...] PCP: Alexia Mtz APRN PCP phone number: [phone] Date of Admission: 07/29/2024 ( Hospital Day 2 days ) Attending:Krystal Parker MD ID: Korey Montoya is a 74 y.o. male w/ PMH of hypertension, HLD, and BPH on Hospital Day2 for chief concern of chest pain after being found to have ST elevations on EKG. Patient transferred via air ambulance to [facility] on 07/29 for LHC and LOW to [...] 0057 07/29/24 1621 PHART 7.44 7.38 7.37 [id number] 29* 34* 36 PO2ART 109* 141* 71* DZX0OQK 19.4* 19.5* 20.4 VBG (Venous Blood Gas) Recent Labs 07/29/24 1401 PHVEN 7.30* PO2VEN 39 NAJ3EOA 20.1* Mixed Venous Sat No results for input(s): B7FINR2 in the last 168 hours. PA Catheter [...] 0057 07/29/24 1621 PHART 7.44 7.38 7.37 DFJ2LJI 29* 34* 36 PO2ART 109* 141* 71* JCL1VFP 19.4* 19.5* 20.4 VBG (Venous Blood Gas) Recent Labs 07/29/24 1401 PHVEN 7.30* PO2VEN 39 VOS4ZLB 20.1* Mixed Venous Sat No results for input(s): L3AMSB2 in the last 168 hours. Microbiology: Microbiology Results (Last 30 days) Procedure Component Value Units Date/Time Blood culture [[id number]] Collected: 07/29/241607 Lab Status: Preliminary result Specimen: Blood, Venous Updated: 07/30/241700 Blood Culture No Growth at 18-24 hrs. Blood culture [[id number]] Collected: 07/29/241607 Lab Status: Preliminary result Specimen: Blood, Venous Updated: 07/30/241700 Blood Culture No Growth at 18-24 hrs. Imaging: Results for orders placed or performed during the hospital encounter of 07/29/24 XR Chest One View (Exam End: 07/29/2024 2:30 PM) Result Value WORKSTATION ID [id number] Impression 1. No pulmonary edema. 2. No pleural effusion. 3. No pneumothorax. Thank you for letting us participate in the care of this patient. If you are a health care provider and have any questions regarding this report, please contact the number below. For patients who have questions please contact the health care center manager that requested your imaging first. ( 07/30/24) [...] Compared to the overnight study by the classification officer fellow the impella position is stable. The [...] EKG. Patient transferred via air ambulance to [facility] on 07/29 for LHC and LOW to [...] work to optimize volume status while continuing sjmwhjh-tktqbp-jqxpfqqbfy therapies at this time. Obtain comprehensive TTE. [...] ASSESSMENT, MANAGEMENT, and DECISION MAKING: ID: Korey Mnotoya is a 74 y.o. male w/ PMH of hypertension, HLD, and BPH who presents for chief concern of chest pain after being found to have ST elevations on EKG. Patient transferred via air ambulance to [facility] on 07/29 for LHC and LOW to LAD for 100% occlusion. TTE showed apical akinesis and inferior hypokinesis with EF 20%. RHC showed elevated filling pressures. Impella placed and P-level 6 at time of transfer to [facility]. CI initially 1.97, improved to 2.2 After impella. Received about 3 L of fluid during procedural course. Patient initially required norepinephrine 30, epinephrine 10, and vasopressin 0.04 for hemodynamic support, which was weaned upon arrival to [facility] to norepinephrine 20and levo [...] PCP: Yoel Artis APRN PCP phone number: [phone] Date of Admission: 07/29/2024 ( Hospital Day 1 day ) Attending:Aubree Silverio MD ID: Korey Montoya is a 74 y.o. male w/ PMH of hypertension, HLD, and BPH on Hospital Day1 for chief concern of chest pain after being found to have ST elevations on EKG. Patient transferred via air ambulance to [facility] on 07/29 for LHC and LOW to [...] 0057 07/29/24 1621 PHART 7.44 7.38 7.37 SDP1HMF 29* 34* 36 PO2ART 109* 141* 71* ABL9LLW 19.4* 19.5* 20.4 VBG (Venous Blood Gas) Recent Labs 07/29/24 1401 PHVEN 7.30* PO2VEN 39 HNA3LSV 20.1* Lactate ( Last 12 hours) 1.3 >> 1.2 Mixed Venous Sat No results for input(s): Z0YBEJ6 in the last 168 hours. PA Catheter [...] 0057 07/29/24 1621 PHART 7.44 7.38 7.37 LEV9DYZ 29* 34* 36 PO2ART 109* 141* 71* EMM8QZE 19.4* 19.5* 20.4 VBG (Venous Blood Gas) Recent Labs 07/29/24 1401 PHVEN 7.30* PO2VEN 39 ZAC6MDQ 20.1* Mixed Venous Sat No results for input(s): S7ZUGQ1 in the last 168 hours. Microbiology: Microbiology Results (Last 30 days) Procedure Component Value Units Date/Time Blood culture [[id number]] Collected: 07/29/24 1608 Lab Status: In process Specimen: Blood, Venous Updated: 07/29/24 1626 Blood culture [[id number]] Collected: 07/29/24 1608 Lab Status: In process Specimen: Blood, Venous Updated: 07/29/24 1615 Imaging: Results for orders placed or performed during the hospital encounter of 07/29/24 XR Chest One View (Exam End: 07/29/2024 2:30 PM) Result Value WORKSTATION ID [id number] Impression 1. No pulmonary edema. 2. No pleural effusion. 3. No pneumothorax. Thank you for letting us participate in the care of this patient. If you are a health care provider and have any questions regarding this report, please contact the number below. For patients who have questions please contact the health care center manager that requested your imaging first. Medications Scheduled [...] EKG. Patient transferred via air ambulance to [facility] on 07/29 for LHC and LOW to [...] EKG. Patient transferred via air ambulance to [facility] on 07/29 for LHC and LOW to [...] EKG. Was transferred via air ambulance to [facility] for further management and C demo nstrated 100% occlusion. No significant RCA, LMCA, or LCX disease. LOW placed in LAD with some residual distal disease meriting placement of overlapping distal stent. TTE showed apical akinesis and inferior hypokinesis with EF 20%. RHC showed elevated filling pressures. Impella placed and P-level 6 at time of transfer to [facility]. CI initially 1.97, improved to 2.2 After impella. Received about 3 L of fluid during procedural course. Patient initially required norepinephrine, epinephrine, and vasopressin for hemodynamic support, which was weaned upon arrival to [facility] to norepinephrine 20 and [...] (WRVU 4.57) performed by Brandan Mcgovern MD [facility] ENDOSCOPY Significant Family History: Family History [...] mouth. Past Week nitroGLYcerin (NITROLINGUAL) 400 mcg/spray [place], Non-Aerosol 1 spray to anus for proctalgia [...] 3.5 guiding catheter and a 3.5 [address] [place] [facility] [address] 20 Mhz using Manual pullback. Imaging [...] priority for the procedure was Emergent. The [facility] indication for the procedure was [...] A premounted 3.00 x 22 mm [place] Grand (LOW) was deployed with a maximum inflation [...] atmospheres. A premounted 3.00 x 08 mm [place] Grand (LOW) was deployed with a maximum inflation [...] a limited study performed by a fellow classification officer to evaluate for cardiogenic shock with impella [...] Compared to the overnight study by the classification officer fellow the impella position is stable. The [...] EKG. Patient transferred via air ambulance to [facility] on 07/29 for LHC and LOW to [...] PCP: Yoel Artis APRN PCP phone number: [phone] Date of Admission: 07/29/2024 ( Hospital Day 0 days ) Attending:Aubree Silverio MD ID: Korey Montoya is a 74 y.o. male w/ PMH of hypertension, HLD, and BPH who presents for chief concern of chest pain after being found to have ST elevations on EKG. Patient transferred via air ambulance to [facility] on 07/29 for LHC and LOW to LAD for 100% occlusion. HPI: Korey Montoya is a 74 y.o. male w/ PMH of hypertension, HLD, and BPH who presents for chief concern of chest pain after being found to have ST elevations on EKG. Patient transferred via air ambulance to [facility] on 07/29 for LHC and LOW to [...] EKG. Was transferred via air ambulance to [facility] for further management and LHC demonstrated 100% [...] (WRVU 4.57) performed by Brandan Mcgovern MD [facility] ENDOSCOPY Family History Family History Problem [...] Blood Gas) No results for input(s): PHART, WXR1VSS, PO2ART, YZJ1KST, LACTATEVEN, LWX1RBA, PFRATIOART2 in the last 168 hours. VBG (Venous Blood Gas) Recent Labs 07/29/24 1401 PHVEN 7.30* PO2VEN 39 MUY7VAE 20.1* Mixed Venous Sat No results for input(s): D8DIHM5 in the last 168 hours. PA Catheter [...] Blood Gas) No results for input(s): PHART, YRU2GBN, PO2ART, EDI8ZTS, LACTATEVEN, CNB8RBG, PFRATIOART2 in the last 168 hours. VBG (Venous Blood Gas) Recent Labs 07/29/24 1401 PHVEN 7.30* PO2VEN 39 CBK5WIN 20.1* Mixed Venous Sat No results for input(s): K7VBSB5 in the last 168 hours. Microbiology: Microbiology [...] EKG. Patient transferred via air ambulance to [facility] on 07/29 for LHC. Found to have 100% occlusion of LAD for which he underwent LOW to LAD.Otherwise no other significant vessel disease. Fahad is currently hemodynamically tenuous but improving upon admission to [facility], requiring hemodynamic support with norepinephrine and vasopressin at time of admission along with mechanical support with Impella device. Reassuringly, he demonstrates decreasing pressor requirements since admission to [facility], with epinephrine completely weaned. [...] - START protonix 40mg daily Hematology - DEISON Infection #Leukocytosis - OBTAINING cultures and CRP in setting of left shift and WBC 19.5 #Routine Diet: NPO diet (Give Meds) DVT Prophylaxis: therapeutic Heparin GI Prophylaxis: protonix 40mg IV daily Code Status: Attempt Cardiopulmonary Resuscitation - Inpatient Dispo: Pending clinical course Bernardo Amos MD Internal Medicine, PGY-3 Cardiology, [facility] 07/29/24 3:14 PM Cardiology [...] MD, FACP, FACC Section of Cardiovascular Medicine [facility] Jack Spooler Tendertelemedicine physician [facility] This patient meets or has met [...] to the planned procedure. Hand Hygiene: The edgerman did perform hand hygiene prior to arterial [...] ease. Good wave form. Ivan Hernandez MD Demand Planning Analyst Associated attestation - Rolando Yeh MD - [...] Fahad was quite active prior to his NH. 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 Given parameters for home exercise. He follows a heart healthy diet and is not overweight. His lipids are wnl. Participation in an outpatient cardiac rehabilitation program at [facility] was discussed. Patient agrees [...] MEDICARE Payor: [employer] MANAGED MEDICARE / Plan: [facility] / Product Type: *No [...] Date of Discharge: 08/04/2024 Gaby Wong RN, Pager-[phone] * Initial Assessments - Char Meza OT - 08/03/2024 10:00 AM EST Occupational Therapy Evaluation Patient profile: Korey Montoya is a 74 y.o. male admitted on 07/29/2024 w/ PMH of hypertension, HLD, and BPH who presents for chief concern of chest pain after being found to have ST elevations onEKG. Patient transferred via air ambulance to [facility] on 07/29 for LHC and LOW to LAD for 100% occlusion. Past Medical History: Diagnosis Date ADHD HLD (hyperlipidemia) HTN (hypertension) Tremor Past Surgical History: Procedure Laterality Date HAND SURGERY PRO COLONOSCOPY, REMV LESN, SNARE N/A 08/30/2023 COLONOSCOPY, POLYPECTOMY, REMOVAL LESION BY SNARE (WRVU 4.57) performed by Brandan Mcgovern MD [facility] ENDOSCOPY Social History: Patient lives with his . Home Setup: 2 NAOMI to a 1 level home. DME: none Baseline ADL/Mobility: Independent with ADLs and IADLs. Enjoys walking. able assist as needed. Precautions/Special Considerations: Full code. Risk for falls. Subjective: I have access to an [employer] gym. (Educated to wait for MD to [...] evaluation only Total Minutes, Occupational Therapy: 14 ([id number] (evaluation)) 2017 OT Evaluation Code Rationale: Diagnosis [...] and measurable assessment of functional outcome. Pager: [phone] Char Meza OT 08/03/2024 Occupational Therapy Rehabilitation [...] (Interventions Implemented as Appropriate) Flowsheets (Taken 08/01/2024 1620) Outcome Summary: A+O, no pain. NSR. MAP > 65, no intervention. Dobutamine and amiodarone gtts off, CI > 2 via TD and Thomas. PA cath, intro, arterial line removed. RA. Tolerating diet. Perez removed, voiding appropriately in urinal. 20mg Lasix given with good effect. Plan of Care Reviewed With: patient Progress: improving * Brief Op Note - Malodnado Luis MD - 07/31/2024 5:35 PM EST Preliminary Cardiac Catheterization Procedure Note: Patient Name: Korey Montoya : [id number] MR#: [id number] Case Date: 07/31/2024 Promotions Associate: Surgeons and Role: * Maldonado Luis MD - Primary * Quinten Charles PA - Physician Electric Motor Control Assembler Preoperative diagnosis: shock, impella Postoperative diagnosis: * same * Procedure(s) performed: Impella removal form right CYANIDE POT HARDENER Access: Right CYANIDE POT HARDENER A time-out was conducted prior to the [...] Admitted From: Transfer from another hospital Location: [facility] Reason for Hospitalization: chest pain Past medical History: Past Medical History: Diagnosis Date ADHD HLD (hyperlipidemia) HTN (hypertension) Tremor Hospitalizations Within the Past 30 Days: no previous admission in last 30 days Current Decision-Making Capacity: Self If AD's have not been completed the following surrogate would be surrogate decision maker [place] decision [place] law. (Only good for 180 days) Any patient receiving care in [place] must abide by [place] law. The hierarchy for surrogate decision making [...] (i) The agent with financial power of assistant city attorney or a conservator appointed in accordance [...] or living in a nursing home (including now)?: No In the past 12 [...] it) Home Address confirmed as: Mailing Address: [address] [address] Physical Address: [address] [place] [address] Social & Family Supports: All names listed [...] points: Addiction likely Health/Prescription Coverage: Primary Insurance: [facility] MANAGED MEDICARE Payor: [employer] MANAGED MEDICARE / Plan: [facility] MANAGED MEDICARE COMPLETE / Product Type: *No Product type* / Secondary Insurance: N/A ; Prescription Coverage: Yes Preferred Pharmacy: [address] - [address] [address] Elaine Status: Patient is a : No Primary Care Provider confirmed: Alexia Mtz, STUDIO HAND [phone] Patient/Caregiver Goals of Treatment: return home Potential [...] 07/29/2024 6:25 PM EST 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 CXR and EKG [...] Procedure Note: Patient Name: Korey Montoya : [id number] MR#: [id number] Case Date: 07/29/2024 Promotions Associate: Surgeons and Role: * Vahe Marvin MD - Primary * Susannah Watts PA - Physician Electric Motor Control Assembler Preoperative diagnosis: STEMI Postoperative diagnosis: * STEMI, LAD Artery * * Cardiogenic Shock * Procedure(s) performed: [facility] Coronary angiogram Stent insertion coronary IVUS coronary Venous line insert [facility] [place] Colette Catheter Vascular closure device Ventricular [...] x 22 mm to 14 deonna JEISON Grand with LIZ 3 flow. Residual distal disease at distal stent, overlapping distal stent was inserted with 3.0 x 8 mm JEISON Grand. Systolic's in the 80's sustained. Patient re [...] AM EST Office Visit Cardiology at [address] [phone] Mushtaq Murphy, FREDRICK Scheduled Orders Name Type [...] - 9.50 x10(3)/mc L 08/04/2024 6:39 AM [facility] Red Blood Cell 4.28(L) 4.58 - 5.54 x10(6)/mc L 08/04/2024 6:39 AM [facility] Hemoglobin 11.6(L) 13.7 - 16.5 g/dL 08/04/2024 6:39 AM [facility] Hematocrit 34.8(L) 40.5 - 48.5 % 08/04/2024 6:39 AM [facility] Mean Cell Volume 81.3(L) 82.9 - 93.1 fL 08/04/2024 6:39 AM [facility] Mean Cell Hemoglobin 27.1(L) 27.5 - 32.1 pg 08/04/2024 6:39 AM [facility] Mean Cell Hemoglobin Concentration 33.3 32.0 - 35.7 g/dL 08/04/2024 6:39 AM [facility] Platelet 178 145 - 357 x10(3)/mc L 08/04/2024 6:39 AM [facility] Mean Platelet Volume 10.6 7.6 - 12.9 fL 08/04/2024 6:39 AM [facility] RDW Standard Deviation 42.0 36.0 - 45.0 fL 08/04/2024 6:39 AM [facility] RDW coefficient of variation 14.3(H) 11.4 - 13.8 % 08/04/2024 6:39 AM [facility] NRBC% auto 0.0 % 08/04/2024 6:39 AM [facility] NRBC Absolute <0.01 <0.01 x10(3)/mc L 08/04/2024 6:39 AM [facility] Neutrophil % 72.1 % 08/04/2024 6:39 AM [facility] Neutrophil Absolute (ANC) - Automated 5.24 1.70 - 6.10 x10(3)/mc L 08/04/2024 6:39 AM [facility] Lymph % 16.8 % 08/04/2024 6:39 AM [facility] Lymph Absolute 1.22 0.90 - 3.20 x10(3)/mc L 08/04/2024 6:39 AM [facility] Monocyte % 8.5 % 08/04/2024 6:39 AM [facility] Monocyte Absolute 0.62 0.30 - 0.90 x10(3)/mc L 08/04/2024 6:39 AM [facility] Eos % 1.9 % 08/04/2024 6:39 AM [facility] Eos Absolute 0.14 0.00 - 0.40 x10(3)/mc L 08/04/2024 6:39 AM [facility] Basophil % 0.4 % 08/04/2024 6:39 AM [facility] Baso Absolute <0.04 0.00 - 0.10 x10(3)/mc L 08/04/2024 6:39 AM [facility] Immature Gran % 0.3 % 6:39 AM [facility] Immature Gran Absolute <0.04 0.00 - 0.04 x10(3)/mc L 08/04/2024 6:39 AM [facility] Blood VENOUS BLOOD SPECIMEN / Unknown Venipuncture / Unknown 08/04/2024 6:08 AM EST 08/04/2024 6:19 AM EST Bridgette Stauffer MD HEMATOLOGY ORDERABLE S [facility] [place] [address] * Magnesium (08/04/2024 6:08 AM EST) Magnesium 0.85 0.69 - 1.07 mMol/L 08/04/2024 7:07 AM [facility] Blood VENOUS BLOOD SPECIMEN / Unknown Venipuncture / Unknown 08/04/2024 6:08 AM EST 08/04/2024 6:19 AM EST Bridgette Stauffer MD CHEMISTRY ORDERABLES [facility] [place] [address] * Basic Metabolic Panel (08/04/2024 6:08 AM EST) Glucose 93 65 - 199 mg/dL 08/04/2024 7:07 AM [facility] Comment:Glucose Concentratio n >=200 mg/dL plus symptoms is consistent with Diabetes Mellitus. Blood Urea Nitrogen 14 10 - 20 mg/dL 08/04/2024 7:07 AM [facility] Creatinine 1.07 0.80 - 1.50 mg/dL 08/04/2024 7:07 AM [facility] Sodium 138 135 - 145 mMol/L 08/04/2024 7:07 AM [facility] Potassium 4.3 3.5 - 5.0 mMol/L 08/04/2024 7:07 AM [facility] Chloride 107 98 - 107 mMol/L 08/04/2024 7:07 AM [facility] Carbon Dioxide 23 22 - 31 mMol/L 08/04/2024 7:07 AM [facility] Anion Gap 8 5 - 15 mMol/L 08/04/2024 7:07 AM [facility] Calcium 8.5 8.5 - 10.5 mg/dL 08/04/2024 7:07 AM [facility] Est Glomerular Filtration Rate - Male 74 mL/min/1. 73 m?? 08/04/2024 7:07 AM [facility] Comment: This patient's estimated GFR [...] MD CHEMISTRY ORDERABLES [facility] [place] [address] * (ABNORMAL) CBC (with Diff) (08/03/2024 5:16 AM EST) White Blood Cell 7.85 4.00 - 9.50 x10(3)/mc L 08/03/2024 5:29 AM [facility] Red Blood Cell 4.43(L) 4.58 - 5.54 x10(6)/mc L 08/03/2024 5:29 AM [facility] Hemoglobin 11.8(L) 13.7 - 16.5 g/dL 08/03/2024 5:29 AM [facility] Hematocrit 35.9(L) 40.5 - 48.5 % 08/03/2024 5:29 AM [facility] Mean Cell Volume 81.0(L) 82.9 - 93.1 fL 08/03/2024 5:29 AM [facility] Mean Cell Hemoglobin 26.6(L) 27.5 - 32.1 pg 08/03/2024 5:29 AM [facility] Mean Cell Hemoglobin Concentration 32.9 32.0 - 35.7 g/dL 08/03/2024 5:29 AM [facility] Platelet 142(L) 145 - 357 x10(3)/mc L 08/03/2024 5:29 AM [facility] Mean Platelet Volume 10.5 7.6 - 12.9 fL 08/03/2024 5:29 AM [facility] RDW Standard Deviation 42.5 36.0 - 45.0 fL 08/03/2024 5:29 AM [facility] RDW coefficient of variation 14.2(H) 11.4 - 13.8 % 08/03/2024 5:29 AM [facility] NRBC% auto 0.0 % 08/03/2024 5:29 AM [facility] NRBC Absolute <0.01 <0.01 x10(3)/mc L 08/03/2024 5:29 AM [facility] Neutrophil % 75.2 % 08/03/2024 5:29 AM [facility] Neutrophil Absolute (ANC) - Automated 5.91 1.70 - 6.10 x10(3)/mc L 08/03/2024 5:29 AM [facility] Lymph % 13.4 % 08/03/2024 5:29 AM [facility] Lymph Absolute 1.05 0.90 - 3.20 x10(3)/mc L 08/03/2024 5:29 AM [facility] Monocyte % 9.0 % 08/03/2024 5:29 AM [facility] Monocyte Absolute 0.71 0.30 - 0.90 x10(3)/mc L 08/03/2024 5:29 AM [facility] Eos % 1.7 % 08/03/2024 5:29 AM [facility] Eos Absolute 0.13 0.00 - 0.40 x10(3)/mc L 08/03/2024 5:29 AM [facility] Basophil % 0.4 % 08/03/2024 5:29 AM [facility] Baso Absolute <0.04 0.00 - 0.10 x10(3)/mc L 08/03/2024 5:29 AM EST [facility] Immature Gran % 0.3 % 5:29 AM [facility] Immature Gran Absolute <0.04 0.00 - 0.04 x10(3)/mc L 08/03/2024 5:29 AM [facility] Blood VENOUS BLOOD SPECIMEN / Unknown Venipuncture / Unknown 08/03/2024 5:16 AM EST 08/03/2024 5:23 AM EST Bridgette Stauffer MD HEMATOLOGY ORDERABLE S Performing Organization Address City/[facility]/ZIP Co de Phone Number [facility] [place] [address] * Magnesium (08/03/2024 5:16 AM EST) Pathologist [facility] Magnesium 0.89 0.69 - 1.07 mMol/L 08/03/2024 5:56 AM [facility] Blood VENOUS BLOOD SPECIMEN / Unknown Venipuncture / Unknown 08/03/2024 5:16 AM EST 08/03/2024 5:23 AM EST Bridgette Stauffer MD CHEMISTRY ORDERABLES Performing Organization Address City/[facility] Co de Phone Number [facility] [place] [address] * (ABNORMAL) Basic Metabolic Panel (08/03/2024 5:16 AM EST) Glucose 98 65 - 199 mg/dL 08/03/2024 5:56 AM [facility] Comment:Glucose Concentratio n >=200 mg/dL plus symptoms is consistent with Diabetes Mellitus. Blood Urea Nitrogen 16 10 - 20 mg/dL 08/03/2024 5:56 AM [facility] Creatinine 0.85 0.80 - 1.50 mg/dL 08/03/2024 5:56 AM [facility] Sodium 137 135 - 145 mMol/L 08/03/2024 5:56 AM EST [facility] Potassium 4.5 3.5 - 5.0 mMol/L 08/03/2024 5:56 AM [facility] Chloride 106 98 - 107 mMol/L 08/03/2024 5:56 AM [facility] Carbon Dioxide 21(L) 22 - 31 mMol/L 08/03/2024 5:56 AM [facility] Anion Gap 10 5 - 15 mMol/L 08/03/2024 5:56 AM [facility] Calcium 8.3(L) 8.5 - 10.5 mg/dL 08/03/2024 5:56 AM [facility] Est Glomerular Filtration Rate - Male 92 mL/min/1. 73 m?? 08/03/2024 5:56 AM [facility] Comment: This patient's estimated GFR [...] MD CHEMISTRY ORDERABLES [facility] [place] [address] * POC, GLUCOSE (08/02/2024 7:47 AM EST) Glucometer, POC 89 65 - 199 mg/dL 08/02/2024 7:47 AM EST [facility] Comment:Supplemental ranges: <140 mg/dL before meals <180 mg/dL all other times of the day. Blood CAPILLARY BLOOD / Unknown 08/02/2024 7:47 AM EST 08/02/2024 7:47 AM EST Krystal Parker MD POINT OF CARE TEST O RDERABLES [facility] [place] [address] * (ABNORMAL) CBC (with Diff) (08/02/2024 4:20 AM EST) White Blood Cell 8.51 4.00 - 9.50 x10(3)/mc L 08/02/2024 4:50 AM [facility] Red Blood Cell 4.41(L) 4.58 - 5.54 x10(6)/mc L 08/02/2024 4:50 AM [facility] Hemoglobin 12.2(L) 13.7 - 16.5 g/dL 08/02/2024 4:50 AM [facility] Hematocrit 35.8(L) 40.5 - 48.5 % 08/02/2024 4:50 AM [facility] Mean Cell Volume 81.2(L) 82.9 - 93.1 fL 08/02/2024 4:50 AM [facility] Mean Cell Hemoglobin 27.7 27.5 - 32.1 pg 08/02/2024 4:50 AM [facility] Mean Cell Hemoglobin Concentration 34.1 32.0 - 35.7 g/dL 08/02/2024 4:50 AM [facility] Platelet 111(L) 145 - 357 x10(3)/mc L 08/02/2024 4:50 AM [facility] Mean Platelet Volume 11.1 7.6 - 12.9 fL 08/02/2024 4:50 AM [facility] RDW Standard Deviation 41.9 36.0 - 45.0 fL 08/02/2024 4:50 AM [facility] RDW coefficient of variation 14.1(H) 11.4 - 13.8 % 08/02/2024 4:50 AM [facility] NRBC% auto 0.0 % 08/02/2024 4:50 AM [facility] NRBC Absolute <0.01 <0.01 x10(3)/mc L 08/02/2024 4:50 AM [facility] Neutrophil % 77.7 % 08/02/2024 4:50 AM [facility] Neutrophil Absolute (ANC) - Automated 6.62(H) 1.70 - 6.10 x10(3)/mc L 08/02/2024 4:50 AM [facility] Lymph % 11.9 % 08/02/2024 4:50 AM [facility] Lymph Absolute 1.01 0.90 - 3.20 x10(3)/mc L 08/02/2024 4:50 AM [facility] Monocyte % 8.2 % 08/02/2024 4:50 AM [facility] Monocyte Absolute 0.70 0.30 - 0.90 x10(3)/mc L 08/02/2024 4:50 AM [facility] Eos % 1.4 % 08/02/2024 4:50 AM [facility] Eos Absolute 0.12 0.00 - 0.40 x10(3)/mc L 08/02/2024 4:50 AM [facility] Basophil % 0.4 % 08/02/2024 4:50 AM [facility] Baso Absolute <0.04 0.00 - 0.10 x10(3)/mc L 08/02/2024 4:50 AM [facility] Immature Gran % 0.4 % 4:50 AM [facility] Immature Gran Absolute <0.04 0.00 - 0.04 x10(3)/mc L 08/02/2024 4:50 AM [facility] Blood VENOUS BLOOD SPECIMEN / Unknown Venipuncture / Unknown 08/02/2024 4:20 AM EST 08/02/2024 4:37 AM EST Bridgette Stauffer MD HEMATOLOGY ORDERABLE S [facility] [place] [address] * Magnesium (08/02/2024 4:20 AM EST) Magnesium 0.79 0.69 - 1.07 mMol/L 08/02/2024 5:06 AM [facility] Blood VENOUS BLOOD SPECIMEN / Unknown Venipuncture / Unknown 08/02/2024 4:20 AM EST 08/02/2024 4:37 AM EST Bridgette Stauffer MD CHEMISTRY ORDERABLES Performing Organization Address City/[facility]/ZIP Co de Phone Number [facility] [place] [address] * (ABNORMAL) Basic Metabolic Panel (08/02/2024 4:20 AM EST) Glucose 110 65 - 199 mg/dL 08/02/2024 5:06 AM [facility] Comment:Glucose Concentratio n >=200 mg/dL plus symptoms is consistent with Diabetes Mellitus. Blood Urea Nitrogen 12 10 - 20 mg/dL 08/02/2024 5:06 AM [facility] Creatinine 0.90 0.80 - 1.50 mg/dL 08/02/2024 5:06 AM [facility] Sodium 139 135 - 145 mMol/L 08/02/2024 5:06 AM [facility] Potassium 4.0 3.5 - 5.0 mMol/L 08/02/2024 5:06 AM [facility] Chloride 108(H) 98 - 107 mMol/L 08/02/2024 5:06 AM [facility] Carbon Dioxide 23 22 - 31 mMol/L 08/02/2024 5:06 AM [facility] Anion Gap 8 5 - [...] Stauffer MD CHEMISTRY ORDERABLES Performing Organization Address City/[facility]/ZIP Co de Phone Number [facility] [place] [address] * Potassium (08/01/2024 8:39 PM EST) Potassium 4.0 3.5 - 5.0 mMol/L 08/01/2024 9:21 PM EST [facility] Blood VENOUS BLOOD SPECIMEN / Unknown Venipuncture / Unknown 08/01/2024 8:39 PM EST 08/01/2024 8:51 PM EST Aubree Silverio MD CHEMISTRY ORDERABL ES [facility] [place] [address] * POC, GLUCOSE (08/01/2024 8:35 PM EST) Glucometer, POC 112 65 - 199 mg/dL 08/01/2024 8:36 PM EST [facility] Comment:Supplemental ranges: <140 mg/dL before meals <180 mg/dL all other times of the day. Blood CAPILLARY BLOOD / Unknown 08/01/2024 8:35 PM EST 08/01/2024 8:36 PM EST Krystal Parker MD POINT OF CARE TEST O RDERASHAY [facility] [place] [address] * POC, GLUCOSE (08/01/2024 4:55 PM EST) Glucometer, POC 99 65 - 199 mg/dL 08/01/2024 4:56 PM EST [facility] Comment:Supplemental ranges: <140 mg/dL before meals <180 mg/dL all other times of the day. Blood CAPILLARY BLOOD / Unknown 08/01/2024 4:55 PM EST 08/01/2024 4:56 PM EST Krystal Parker MD POINT OF CARE TEST O JOSH Performing Organization Address [facility]/ZIP Co de Phone Number [facility] [place] [address] * POC, GLUCOSE (08/01/2024 12:42 PM EST) Glucometer, POC 130 65 - 199 mg/dL 08/01/2024 12:43 PM EST [facility] Comment:Supplemental ranges: <140 mg/dL before meals <180 mg/dL all other times of the day. Blood CAPILLARY BLOOD / Unknown 08/01/2024 12:42 PM EST 08/01/2024 12:43 PM EST Krystal Parker MD POINT OF CARE TEST O JOSH Performing Organization Address City/[facility]/ZIP Co de Phone Number [facility] [place] [address] * (ABNORMAL) Cooximetry, POC (08/01/2024 10:45 AM EST) pO2, Coox 32 mmHg 08/01/2024 10:48 AM [facility] Hemoglobin, Coox 12.9(L) 13.7 - 16.5 g/dL 08/01/2024 10:48 AM [facility] Oxyhemoglobin, Coox 66.7 % 08/01/2024 10:48 AM [facility] Carboxyhemoglo bin, Coox 1.1 % 08/01/2024 10:48 AM [facility] Comment: Nonsmokers: 0.5-1.5% COHB ?? Smokers: Variable ??but usually less than 10% ?? Toxic: 20-30% COHB ?? Lethal: Greater than 60% COHB Methemoglobin, Coox 0.3 <=1.5 % 08/01/2024 10:48 AM [facility] Blood (Mixed Venous) 08/01/2024 10:45 AM EST 08/01/2024 10:48 AM EST Krystal Parker MD POINT OF CARE TEST O RDERABLES [facility] [place] [address] * Potassium (08/01/2024 8:20 AM EST) Potassium 4.0 3.5 - 5.0 mMol/L 08/01/2024 10:17 AM EST [facility] Blood ARTERIAL BLOOD / Unknown Venipuncture / Unknown 08/01/2024 8:20 AM EST 08/01/2024 8:30 AM EST Aubree Silverio MD CHEMISTRY ORDERABL ES [facility] [place] [address] * POC, GLUCOSE (08/01/2024 7:44 AM EST) Pathologist [facility] Glucometer, POC 86 65 - 199 mg/dL 08/01/2024 7:44 AM EST [facility] Comment:Supplemental ranges: <140 mg/dL before meals <180 mg/dL all other times of the day. Blood CAPILLARY BLOOD / Unknown 08/01/2024 7:44 AM EST 08/01/2024 7:44 AM EST Krystal Parker MD POINT OF CARE TEST O RDERABLES [facility] [place] [address] * (ABNORMAL) CBC (with Diff) (08/01/2024 4:18 AM EST) [facility] White Blood Cell 8.51 4.00 - 9.50 x10(3)/mc L 08/01/2024 4:53 AM [facility] Red Blood Cell 4.12(L) 4.58 - 5.54 x10(6)/mc L 08/01/2024 4:53 AM [facility] Hemoglobin 11.2(L) 13.7 - 16.5 g/dL 08/01/2024 4:53 AM [facility] Hematocrit 33.8(L) 40.5 - 48.5 % 08/01/2024 4:53 AM [facility] Mean Cell Volume 82.0(L) 82.9 - 93.1 fL 08/01/2024 4:53 AM [facility] Mean Cell Hemoglobin 27.2(L) 27.5 - 32.1 pg 08/01/2024 4:53 AM [facility] Mean Cell Hemoglobin Concentration 33.1 32.0 - 35.7 g/dL 08/01/2024 4:53 AM [facility] Platelet 94(L) 145 - 357 x10(3)/mc L 08/01/2024 4:53 AM [facility] Mean Platelet Volume 10.9 7.6 - 12.9 fL 08/01/2024 4:53 AM [facility] RDW Standard Deviation 44.2 36.0 - 45.0 fL 08/01/2024 4:53 AM [facility] RDW coefficient of variation 14.7(H) 11.4 - 13.8 % 08/01/2024 4:53 AM [facility] NRBC% auto 0.0 % 08/01/2024 4:53 AM [facility] NRBC Absolute <0.01 <0.01 x10(3)/mc L 08/01/2024 4:53 AM [facility] Neutrophil % 82.7 % 08/01/2024 4:53 AM [facility] Neutrophil Absolute (ANC) - Automated 7.04(H) 1.70 - 6.10 x10(3)/mc L 08/01/2024 4:53 AM [facility] Lymph % 8.6 % 08/01/2024 4:53 AM [facility] Lymph Absolute 0.73(L) 0.90 - 3.20 x10(3)/mc L 08/01/2024 4:53 AM [facility] Monocyte % 7.6 % 08/01/2024 4:53 AM [facility] Monocyte Absolute 0.65 0.30 - 0.90 x10(3)/mc L 08/01/2024 4:53 AM [facility] Eos % 0.5 % 08/01/2024 4:53 AM [facility] Eos Absolute 0.04 0.00 - 0.40 x10(3)/mc L 08/01/2024 4:53 AM [facility] Basophil % 0.2 % 08/01/2024 4:53 AM [facility] Baso Absolute <0.04 0.00 - 0.10 x10(3)/mc L 08/01/2024 4:53 AM [facility] Immature Gran % 0.4 % 4:53 AM [facility] Immature Gran Absolute <0.04 0.00 - 0.04 x10(3)/mc L 08/01/2024 4:53 AM [facility] Blood VENOUS BLOOD SPECIMEN / Unknown Venipuncture / Unknown 08/01/2024 4:18 AM EST 08/01/2024 4:29 AM EST Bridgette Stauffer MD HEMATOLOGY ORDERABLE S Performing Organization Address [facility] Co de Phone Number [facility] [place] [address] * Magnesium (08/01/2024 4:18 AM EST) Pathologist [facility] Magnesium 0.74 0.69 - 1.07 mMol/L 08/01/2024 5:00 AM [facility] Blood VENOUS BLOOD SPECIMEN / Unknown Venipuncture / Unknown 08/01/2024 4:18 AM EST 08/01/2024 4:29 AM EST Bridgette Stauffer MD CHEMISTRY ORDERABLES Performing Organization Address [facility] Co de Phone Number [facility] [place] [address] * (ABNORMAL) Basic Metabolic Panel (08/01/2024 4:18 AM EST) Pathologist [facility] Glucose 107 65 - 199 mg/dL 08/01/2024 5:00 AM [facility] Comment:Glucose Concentratio n >=200 mg/dL plus symptoms is consistent with Diabetes Mellitus. Blood Urea Nitrogen 8(L) 10 - 20 mg/dL 08/01/2024 5:00 AM [facility] Creatinine 0.82 0.80 - 1.50 mg/dL 08/01/2024 5:00 AM [facility] Sodium 137 135 - 145 mMol/L 08/01/2024 5:00 AM [facility] Potassium 3.9 3.5 - 5.0 mMol/L 08/01/2024 5:00 AM [facility] Chloride 108(H) 98 - 107 mMol/L 08/01/2024 5:00 AM [facility] Carbon Dioxide 21(L) 22 - 31 mMol/L 08/01/2024 5:00 AM [facility] Anion Gap 8 5 - 15 mMol/L 08/01/2024 5:00 AM [facility] Calcium 7.7(L) 8.5 - 10.5 mg/dL 08/01/2024 5:00 AM [facility] Est Glomerular Filtration Rate - Male 93 mL/min/1. 73 m?? 08/01/2024 5:00 AM [facility] Comment: This patient's estimated GFR [...] MD CHEMISTRY ORDERABLES [facility] [place] [address] * POC, GLUCOSE (07/31/2024 8:41 PM EST) Glucometer, POC 73 65 - 199 mg/dL 07/31/2024 8:41 PM EST [facility] Comment:Supplemental ranges: <140 mg/dL before meals <180 mg/dL all other times of the day. Blood CAPILLARY BLOOD / Unknown 07/31/2024 8:41 PM EST 07/31/2024 8:41 PM EST Krystal Parker MD POINT OF CARE TEST O RDERABLES Performing Organization Address [facility]/State/ZIP Co de Phone Number [facility] [place] [address] * CARDIAC CATHETERIZATION (07/31/2024 5:53 PM EST) Anatomical Region Laterality Modality Other Narrative 08/01/2024 12:37 PM EST ?[facility] ? Cardiac Catheterization/Intervention Report ? Patient Name: Korey Montoya Kyrie. ? Procedure Date: 07/31/2024 ? A #: [id number] ? Primary Physician: Janelle, Maldonado T ? Case #: [id number] ? File Name: [id number] ? Catheterization Order Number: [id number] ? [facility] ? Final Report [place], [place] ? Patient Name: ? Korey Montoya ?ID#: ?[id number] ? : ?1950 ? Procedure Date: ? July 31, 2024 ?Case #: ? [id number] ? Room: ? 1 ? Case [...] ? Comments: ?Impella removed from the right [employer] with deployment of Perclose and ?Angioseal. ??Good [...] Procedure Note Maldonado Luis MD - 08/01/[address] [facility] Cardiac Catheterization/Intervention Report Patient Name: Korey Montoya Procedure Date: 07/31/2024 A #: [id number] Primary Physician: Maldonado Luis Case #: [id number] File Name: [id number] Catheterization Order Number: [id number] [facility] FinalReport [place], [place] Patient Name: Korey Montoya ID#:[id number] :1950 Procedure Date: July 31, 2024 Case [...] was designated as ASA Class IV. The [facility] clinical frailtyscale is 4: Vulnerable. Diagnostic Tests: [...] procedures. 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 Good [...] * POC, GLUCOSE (07/31/2024 11:04 AM EST) [facility] Glucometer, POC 82 65 - 199 mg/dL 07/31/2024 11:04 AM EST [facility] Comment:Supplemental ranges: <140 mg/dL before meals <180 mg/dL all other times of the day. Blood CAPILLARY BLOOD / Unknown 07/31/2024 11:04 AM EST 07/31/2024 11:04 AM EST Krystal Parker MD POINT OF CARE TEST O RDERABLES [facility] [place] [address] * (ABNORMAL) Blood Gas, Arterial POC (07/31/2024 8:29 AM EST) pH, Arterial 7.48(H) 7.35 - 7.45 07/31/2024 8:30 AM [facility] PCO2, Arterial 29(L) 35 - 45 mmHg 07/31/2024 8:30 AM [facility] PO2, Arterial 71(L) 85 - 104 mmHg 07/31/2024 8:30 AM [facility] Bicarbonate, Arterial 20.6 20.0 - 26.0 mmol/L 07/31/2024 8:30 AM [facility] Base Excess, Arterial -3.0 -3.0 - 3.0 mmol/L 07/31/2024 8:30 AM [facility] Hemoglobin, Arterial 12.3(L) 13.7 - 16.5 g/dL 07/31/2024 8:30 AM [facility] Oxyhemoglobin, Arterial 94.4 94.0 - 97.0 % 07/31/2024 8:30 AM [facility] Carboxyhemoglobin , Arterial 0.7 % 07/31/2024 8:30 AM [facility] Comment: Nonsmokers: 0.5-1.5% COHB ?? Smokers: Variable ??but usually less than 10% ?? Toxic: 20-30% COHB ?? Lethal: Greater than 60% COHB Methemoglobin, Arterial 0.3 <=1.5 % 07/31/2024 8:30 AM [facility] Sodium, Arterial 138 135 - 145 mmol/L 07/31/2024 8:30 AM [facility] Potassium, Arterial 3.5 3.5 - 5.0 mmol/L 07/31/2024 8:30 AM [facility] Chloride, Arterial 109(H) 98 - 107 mmol/L 07/31/2024 8:30 AM [facility] Lactate, Arterial 0.8 0.5 - 2.2 mmol/L 07/31/2024 8:30 AM [facility] Fraction of Inspired Oxygen 21 % 07/31/2024 8:30 AM [facility] PF Ratio 338 Ratio 07/31/2024 8:30 AM [facility] Comment:PF ratio calculated using the non-temperature corrected pO2 result. IONIZED CALCIUM, ARTERIAL 1.08(L) 1.15 - 1.33 mmol/L 07/31/2024 8:30 AM [facility] Glucose, Arterial 86 65 - 199 mg/dL 07/31/2024 8:30 AM [facility] Comment:Glucose Concentratio n >=200 mg/dL plus symptoms is consistent with Diabetes Mellitus. Blood ARTERIAL BLOOD / Unknown 07/31/2024 8:29 AM EST 07/31/2024 8:30 AM EST Krystal Parker MD POINT OF CARE TEST O JOSH [facility] [place] [address] * POC, GLUCOSE (07/31/2024 7:47 AM EST) Glucometer, POC 82 65 - 199 mg/dL 07/31/2024 7:53 AM [facility] Comment:Supplemental ranges: <140 mg/dL before meals <180 mg/dL all other times of the day. Blood CAPILLARY BLOOD / Unknown 07/31/2024 7:47 AM EST 07/31/2024 7:53 AM EST Krystal Parker MD POINT OF CARE TEST O RDERASHAY [facility] [place] [address] * (ABNORMAL) CBC (with Diff) (07/31/2024 1:08 AM EST) White Blood Cell 10.25(H) 4.00 - 9.50 x10(3)/mc L 07/31/2024 1:28 AM [facility] Red Blood Cell 4.13(L) 4.58 - 5.54 x10(6)/mc L 07/31/2024 1:28 AM [facility] Hemoglobin 11.2(L) 13.7 - 16.5 g/dL 07/31/2024 1:28 AM [facility] Hematocrit 33.9(L) 40.5 - 48.5 % 07/31/2024 1:28 AM [facility] Mean Cell Volume 82.1(L) 82.9 - 93.1 fL 07/31/2024 1:28 AM [facility] Mean Cell Hemoglobin 27.1(L) 27.5 - 32.1 pg 07/31/2024 1:28 AM [facility] Mean Cell Hemoglobin Concentration 33.0 32.0 - 35.7 g/dL 07/31/2024 1:28 AM [facility] Platelet 109(L) 145 - 357 x10(3)/mc L 07/31/2024 1:28 AM [facility] Mean Platelet Volume 10.4 7.6 - 12.9 fL 07/31/2024 1:28 AM [facility] RDW Standard Deviation 45.1(H) 36.0 - 45.0 fL 07/31/2024 1:28 AM [facility] RDW coefficient of variation 15.1(H) 11.4 - 13.8 % 07/31/2024 1:28 AM [facility] NRBC% auto 0.0 % 07/31/2024 1:28 AM [facility] NRBC Absolute <0.01 <0.01 x10(3)/mc L 07/31/2024 1:28 AM [facility] Neutrophil % 79.7 % 07/31/2024 1:28 AM [facility] Neutrophil Absolute (ANC) - Automated 8.17(H) 1.70 - 6.10 x10(3)/mc L 07/31/2024 1:28 AM [facility] Lymph % 12.8 % 07/31/2024 1:28 AM [facility] Lymph Absolute 1.31 0.90 - 3.20 x10(3)/mc L 07/31/2024 1:28 AM [facility] Monocyte % 6.9 % 07/31/2024 1:28 AM [facility] Monocyte Absolute 0.71 0.30 - 0.90 x10(3)/mc L 07/31/2024 1:28 AM [facility] Eos % 0.1 % 07/31/2024 1:28 AM [facility] Eos Absolute <0.04 0.00 - 0.40 x10(3)/mc L 07/31/2024 1:28 AM [facility] Basophil % 0.3 % 07/31/2024 1:28 AM [facility] Baso Absolute <0.04 0.00 - 0.10 x10(3)/mc L 07/31/2024 1:28 AM [facility] Immature Gran % 0.2 % 1:28 AM [facility] Immature Gran Absolute <0.04 0.00 - 0.04 x10(3)/mc L 07/31/2024 1:28 AM [facility] Blood VENOUS BLOOD SPECIMEN / Unknown Venipuncture / Unknown 07/31/2024 1:08 AM EST 07/31/2024 1:18 AM EST Bridgette Stauffer MD HEMATOLOGY ORDERABLE S [facility] [place] [address] * Magnesium (07/31/2024 1:08 AM EST) Pathologist [facility] Magnesium 0.89 0.69 - 1.07 mMol/L 07/31/2024 1:46 AM [facility] Blood VENOUS BLOOD SPECIMEN / Unknown Venipuncture / Unknown 07/31/2024 1:08 AM EST 07/31/2024 1:18 AM EST Bridgette Stauffer MD CHEMISTRY ORDERABLES [facility] [address] [facility] [address] [place] [address] * (ABNORMAL) Basic Metabolic Panel (07/31/2024 1:08 AM EST) Pathologist [facility] Glucose 97 65 - 199 mg/dL 07/31/2024 1:46 AM [facility] Comment:Glucose Concentratio n >=200 mg/dL plus symptoms is consistent with Diabetes Mellitus. Blood Urea Nitrogen 11 10 - 20 mg/dL 07/31/2024 1:46 AM [facility] Creatinine 0.96 0.80 - 1.50 mg/dL 07/31/2024 1:46 AM EST [facility] Sodium 140 135 - 145 mMol/L 07/31/2024 1:46 AM EST [facility] Potassium 4.1 3.5 - 5.0 mMol/L 07/31/2024 1:46 AM [facility] Chloride 110(H) 98 - 107 mMol/L 07/31/2024 1:46 AM [facility] Carbon Dioxide 24 22 - 31 mMol/L 07/31/2024 1:46 AM [facility] Anion Gap 6 5 - 15 mMol/L 07/31/2024 1:46 AM EST [facility] Calcium 7.7(L) 8.5 - 10.5 mg/dL 07/31/2024 1:46 AM [facility] Est Glomerular Filtration Rate - Male 84 mL/min/1. 73 m?? 07/31/2024 1:46 AM [facility] Comment: This patient's estimated GFR [...] MD CHEMISTRY ORDERABLES [facility] [place] [address] * (ABNORMAL) Hepatic Function Panel (07/31/2024 1:08 AM EST) Albumin 3.1(L) 3.2 - 5.2 g/dL 07/31/2024 1:46 AM EST [facility] Aspartate Aminotransferase 192(H) <=39 unit/L 07/31/2024 1:46 AM [facility] Alanine Aminotransferase 59(H) 0 - 55 unit/L 07/31/2024 1:46 AM [facility] Alkaline Phosphatase 46 40 - 130 unit/L 07/31/2024 1:46 AM [facility] Bilirubin, Total 0.4 <=1.3 mg/dL 07/31/2024 1:46 AM [facility] Bilirubin, Direct <0.2 0.0 - 0.3 mg/dL 07/31/2024 1:46 AM [facility] Protein, Total 5.0(L) 6.1 - 8.0 g/dL 07/31/2024 1:46 AM [facility] Blood VENOUS BLOOD SPECIMEN / Unknown Venipuncture / Unknown 07/31/2024 1:08 AM EST 07/31/2024 1:18 AM EST Krystal Parker MD CHEMISTRY ORDERABLES Performing Organization Address [facility]/ZIP Co de Phone Number [facility] [place] [address] * POC, GLUCOSE (07/30/2024 8:03 PM EST) Glucometer, POC 86 65 - 199 mg/dL 07/30/2024 8:03 PM EST [facility] Comment:Supplemental ranges: <140 mg/dL before meals <180 mg/dL all other times of the day. Blood CAPILLARY BLOOD / Unknown 07/30/2024 8:03 PM EST 07/30/2024 8:03 PM EST Krystal Parker MD POINT OF CARE TEST O RDERABLES Performing Organization Address City/[facility]/ZIP Co de Phone Number [facility] [place] [address] * Potassium (07/30/2024 8:03 PM EST) [facility] Potassium 3.8 3.5 - 5.0 mMol/L 07/30/2024 9:13 PM EST [facility] Blood VENOUS BLOOD SPECIMEN / Unknown Venipuncture / Unknown 07/30/2024 8:03 PM EST 07/30/2024 8:22 PM EST Aubree Silverio MD CHEMISTRY ORDERABL ES Performing Organization Address City/[facility]/ZIP Co de Phone Number [facility] [place] [address] * POC, GLUCOSE (07/30/2024 6:23 PM EST) Glucometer, POC 93 65 - 199 mg/dL 07/30/2024 6:24 PM EST [facility] Comment:Supplemental ranges: <140 mg/dL before meals <180 mg/dL all other times of the day. Blood CAPILLARY BLOOD / Unknown 07/30/2024 6:23 PM EST 07/30/2024 6:24 PM EST Krystal Parker MD POINT OF CARE TEST O RDKAY Performing Organization Address [facility] Co de Phone Number [facility] [place] [address] * POC, GLUCOSE (07/30/2024 5:08 PM EST) Glucometer, POC 78 65 - 199 mg/dL 07/30/2024 5:08 PM EST [facility] Comment:Supplemental ranges: <140 mg/dL before meals <180 mg/dL all other times of the day. Blood CAPILLARY BLOOD / Unknown 07/30/2024 5:08 PM EST 07/30/2024 5:08 PM EST Krystal Parker MD POINT OF CARE TEST O JOSH Performing Organization Address [facility] Co de Phone Number [facility] [place] [address] * (ABNORMAL) Phosphorus (07/30/2024 3:08 PM EST) Phosphorus 2.1(L) 2.5 - 4.5 mg/dL 07/30/2024 3:58 PM EST [facility] Blood VENOUS BLOOD SPECIMEN / Unknown Venipuncture / Unknown 07/30/2024 3:08 PM EST 07/30/2024 3:12 PM EST Aburee Silverio MD CHEMISTRY ORDERABL ES Performing Organization Address [facility] Co de Phone Number [facility] [place] [address] * Magnesium (07/30/2024 3:08 PM EST) Magnesium 0.90 0.69 - 1.07 mMol/L 07/30/2024 3:58 PM EST [facility] Blood VENOUS BLOOD SPECIMEN / Unknown Venipuncture / Unknown 07/30/2024 3:08 PM EST 07/30/2024 3:12 PM EST Aubree Silverio MD CHEMISTRY ORDERABL ES [facility] [place] [address] * (ABNORMAL) Basic Metabolic Panel (07/30/2024 3:08 PM EST) Glucose 105 65 - 199 mg/dL 07/30/2024 4:17 PM [facility] Comment:Glucose Concentratio n >=200 mg/dL plus symptoms is consistent with Diabetes Mellitus. Blood Urea Nitrogen 13 10 - 20 mg/dL 07/30/2024 4:17 PM [facility] Creatinine 1.01 0.80 - 1.50 mg/dL 07/30/2024 4:17 PM [facility] Sodium 141 135 - 145 mMol/L 07/30/2024 4:17 PM [facility] Potassium 3.4(L) 3.5 - 5.0 mMol/L 07/30/2024 4:17 PM [facility] Chloride 109(H) 98 - 107 mMol/L 07/30/2024 4:17 PM [facility] Carbon Dioxide 21(L) 22 - 31 mMol/L 07/30/2024 4:17 PM [facility] Anion Gap 11 5 - 15 mMol/L 07/30/2024 4:17 PM [facility] Calcium 7.9(L) 8.5 - 10.5 mg/dL 07/30/2024 4:17 PM [facility] Est Glomerular Filtration Rate - Male 79 mL/min/1. 73 m?? 07/30/2024 4:17 PM [facility] Comment: This patient's estimated GFR [...] ORDERABL ES [facility] [place] [address] * ECHO LMTD W CONTRAST W LMTD SPEC DOPP COLOR DOPP (07/30/2024 11:42 AM EST) Anatomical Region Laterality Modality Cardiac Other 07/30/2024 10:2 2 AM EST Narrative 07/30/2024 12:34 PM EST [address] [place] [address] ? Echocardiogram Report Name: MONTOYA KOREY Kyrie ? Study Date: 07/30/2024 10:22 AMBP: 124/66 mmHg : 1950 ? Height: 168 cm ? Account: [id number] Age: 74 yrs ? Weight: 65 kg Gender: Male ?BSA: 1.7 m2 Ordering Physician: Aubree Silverio MD Referring Physician: CHAPARRO FERRERA Performed By: OMERO Millan Reason For Study: ST elevation myocardial infarction involving left anterior descending (LAD) coronary artery Interpreting Fellow: Ivan Hernandez. Exam Location: [facility]. Interpretation Summary Left ventricle is [...] Compared to the overnight study by the classification officer fellow the impella position is stable. 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 Procedure Limited - 86774. Image enhancement Definity was used for both [...] Note Kathleen Banda MD - 07/30/2024 [address] [place] [address] Echocardiogram Report Name: KOREY MONTOYA Study Date: 0:22 AMBP: 124/66 mmHg : 1950 Height: 168 cm Account: [id number] Age: 74 yrs Weight: 65 kg Gender: Male BSA: 1.7 m2 Ordering Physician: Aubree Silverio MD Referring Physician: CHAPARRO FERRERA Performed By: OMERO Millan Reason For Study: ST elevation myocardial infarction involving leftanterior descending (LAD) coronary artery Interpreting Fellow: Ivan Hernandez. Exam Location: [facility]. Interpretation Summary Left ventricle is [...] Compared to the overnight study by the classification officer fellow the impella positionis stable. The global left ventricular systolic function has improvedpredominantly via recruitment outside the LAD territory which remains akinetic. Procedure Limited - 45161. Image enhancement Definity was used for both [...] CARE TEST ORDERABLES [facility] [place] [address] * (ABNORMAL) Blood Gas, Arterial POC (07/30/2024 8:16 AM EST) pH, Arterial 7.44 7.35 - 7.45 07/30/2024 8:17 AM [facility] PCO2, Arterial 29(L) 35 - 45 mmHg 07/30/2024 8:17 AM [facility] PO2, Arterial 109(H) 85 - 104 mmHg 07/30/2024 8:17 AM [facility] Bicarbonate, Arterial 19.4(L) 20.0 - 26.0 mmol/L 07/30/2024 8:17 AM [facility] Base Excess, Arterial -4.7(L) -3.0 - 3.0 mmol/L 07/30/2024 8:17 AM [facility] Hemoglobin, Arterial 12.2(L) 13.7 - 16.5 g/dL 07/30/2024 8:17 AM [facility] Oxyhemoglobin, Arterial 97.1(H) 94.0 - 97.0 % 07/30/2024 8:17 AM [facility] Carboxyhemoglob in, Arterial 1.0 % 07/30/2024 8:17 AM [facility] Comment: Nonsmokers: 0.5-1.5% COHB ?? Smokers: Variable ??but usually less than 10% ?? Toxic: 20-30% COHB ?? Lethal: Greater than 60% COHB Methemoglobin, Arterial 0.1 <=1.5 % 07/30/2024 8:17 AM [facility] Sodium, Arterial 132(L) 135 - 145 mmol/L 07/30/2024 8:17 AM EST [facility] Potassium, Arterial 3.9 3.5 - 5.0 mmol/L 07/30/2024 8:17 AM [facility] Chloride, Arterial 105 98 - 107 mmol/L 07/30/2024 8:17 AM [facility] Lactate, Arterial 1.2 0.5 - 2.2 mmol/L 07/30/2024 8:17 AM [facility] Fraction of Inspired Oxygen 21 % 07/30/2024 8:17 AM [facility] PF Ratio 519 Ratio 07/30/2024 8:17 AM [facility] Comment:PF ratio calculated using the non-temperature corrected pO2 result. IONIZED CALCIUM, ARTERIAL 1.15 1.15 - 1.33 mmol/L 07/30/2024 8:17 AM [facility] Blood ARTERIAL BLOOD / Unknown 07/30/2024 8:16 AM EST 07/30/2024 8:17 AM EST Aubree Silverio MD POINT OF CARE TEST ORDERABLES [facility] [place] [address] * (ABNORMAL) Troponin - Single (07/30/2024 8:09 [...] value can be found in the [facility] Test Catalog Troponin - [email or web address]/[email or web address] Reference: Fourth [place] Definition of Myocardial Infarction. Journal of the [employer] [employer] 2018;72:6779-7770 Blood VENOUS BLOOD SPECIMEN / Unknown Venipuncture / Unknown 07/30/2024 8:09 AM EST 07/30/2024 8:26 AM EST Aubree Silverio MD CHEMISTRY ORDERABL ES Performing Organization Address [facility] Co de Phone Number [facility] [place] [address] * POC, GLUCOSE (07/30/2024 7:40 AM EST) Glucometer, POC 111 65 - 199 mg/dL 07/30/2024 7:40 AM EST [facility] Comment:Supplemental ranges: <140 mg/dL before meals <180 mg/dL all other times of the day. Blood CAPILLARY BLOOD / Unknown 07/30/2024 7:40 AM EST 07/30/2024 7:40 AM EST Aubree Silverio MD POINT OF CARE TEST ORDERABLES Performing Organization Address [facility] Co de Phone Number [facility] [place] [address] * (ABNORMAL) CBC (with Diff) (07/30/2024 2:11 AM EST) White Blood Cell 11.25(H) 4.00 - 9.50 x10(3)/mc L 07/30/2024 2:33 AM EST [facility] Red Blood Cell 4.50(L) 4.58 - 5.54 x10(6)/mc L 07/30/2024 2:33 AM [facility] Hemoglobin 12.2(L) 13.7 - 16.5 g/dL 07/30/2024 2:33 AM [facility] Hematocrit 37.1(L) 40.5 - 48.5 % 07/30/2024 2:33 AM [facility] Mean Cell Volume 82.4(L) 82.9 - 93.1 fL 07/30/2024 2:33 AM [facility] Mean Cell Hemoglobin 27.1(L) 27.5 - 32.1 pg 07/30/2024 2:33 AM [facility] Mean Cell Hemoglobin Concentration 32.9 32.0 - 35.7 g/dL 07/30/2024 2:33 AM [facility] Platelet 166 145 - 357 x10(3)/mc L 07/30/2024 2:33 AM [facility] Mean Platelet Volume 10.6 7.6 - 12.9 fL 07/30/2024 2:33 AM [facility] RDW Standard Deviation 44.6 36.0 - 45.0 fL 07/30/2024 2:33 AM [facility] RDW coefficient of variation 14.6(H) 11.4 - 13.8 % 07/30/2024 2:33 AM [facility] NRBC% auto 0.0 % 07/30/2024 2:33 AM [facility] NRBC Absolute <0.01 <0.01 x10(3)/mc L 07/30/2024 2:33 AM [facility] Neutrophil % 88.9 % 07/30/2024 2:33 AM [facility] Neutrophil Absolute (ANC) - Automated 10.00(H) 1.70 - 6.10 x10(3)/mc L 07/30/2024 2:33 AM [facility] Lymph % 5.1 % 07/30/2024 2:33 AM [facility] Lymph Absolute 0.57(L) 0.90 - 3.20 x10(3)/mc L 07/30/2024 2:33 AM EST [facility] [facility] Monocyte % 5.4 % 07/30/2024 2:33 AM [facility] Monocyte Absolute 0.61 0.30 - 0.90 x10(3)/mc L 07/30/2024 2:33 AM [facility] Eos % 0.0 % 07/30/2024 2:33 AM [facility] Eos Absolute <0.04 0.00 - 0.40 x10(3)/mc L 07/30/2024 2:33 AM [facility] Basophil % 0.2 % 07/30/2024 2:33 AM [facility] Baso Absolute <0.04 0.00 - 0.10 x10(3)/mc L 07/30/2024 2:33 AM [facility] Immature Gran % 0.4 % 2:33 AM [facility] Immature Gran Absolute 0.05(H) 0.00 - 0.04 x10(3)/mc L 07/30/2024 2:33 AM [facility] Blood VENOUS BLOOD SPECIMEN / Unknown Venipuncture / Unknown 07/30/2024 2:11 AM EST 07/30/2024 2:22 AM EST Bridgette Stauffer MD HEMATOLOGY ORDERABLE S [facility] [place] [address] * Magnesium (07/30/2024 2:11 AM EST) Magnesium 1.01 0.69 - 1.07 mMol/L 07/30/2024 2:51 AM [facility] Blood VENOUS BLOOD SPECIMEN / Unknown Venipuncture / Unknown 07/30/2024 2:11 AM EST 07/30/2024 2:22 AM EST Bridgette Stauffer MD CHEMISTRY ORDERABLES [facility] [place] [address] * (ABNORMAL) Basic Metabolic Panel (07/30/2024 2:11 AM EST) Glucose 190 65 - 199 mg/dL 07/30/2024 2:51 AM [facility] Comment:Glucose Concentratio n >=200 mg/dL plus symptoms is consistent with Diabetes Mellitus. Blood Urea Nitrogen 15 10 - 20 mg/dL 07/30/2024 2:51 AM [facility] Creatinine 0.88 0.80 - 1.50 mg/dL 07/30/2024 2:51 AM [facility] Sodium 135 135 - 145 mMol/L 07/30/2024 2:51 AM [facility] Potassium 4.9 3.5 - 5.0 mMol/L 07/30/2024 2:51 AM [facility] Chloride 105 98 - 107 mMol/L 07/30/2024 2:51 AM [facility] Carbon Dioxide 19(L) 22 - 31 mMol/L 07/30/2024 2:51 AM [facility] Anion Gap 11 5 - 15 mMol/L 07/30/2024 2:51 AM [facility] Calcium 7.7(L) 8.5 - 10.5 mg/dL 07/30/2024 2:51 AM [facility] Est Glomerular Filtration Rate - Male 91 mL/min/1. 73 m?? 07/30/2024 2:51 AM [facility] Comment: This patient's estimated GFR [...] Stauffer MD CHEMISTRY ORDERABLES Performing Organization Address City/[facility]/ZIP Co de Phone Number [facility] [place] [address] * (ABNORMAL) Cooximetry, POC (07/30/2024 1:00 AM EST) pO2, Coox 28 mmHg 07/30/2024 1:03 AM [facility] Hemoglobin, Coox 12.7(L) 13.7 - 16.5 g/dL 07/30/2024 1:03 AM EST [facility] Oxyhemoglobin, Coox 54.9 % 07/30/2024 1:03 AM [facility] Carboxyhemoglo bin, Coox 1.0 % [...] OF CARE TEST ORDERABLES Performing Organization Address [facility] Co de Phone Number [facility] [place] [address] * (ABNORMAL) Blood Gas, Arterial POC (07/30/2024 12:57 AM EST) pH, Arterial 7.38 7.35 - 7.45 07/30/2024 12:58 AM [facility] PCO2, Arterial 34(L) 35 - 45 mmHg 07/30/2024 12:58 AM [facility] PO2, Arterial 141(H) 85 - 104 mmHg 07/30/2024 12:58 AM [facility] Bicarbonate, Arterial 19.5(L) 20.0 - 26.0 mmol/L 07/30/2024 12:58 AM [facility] Base Excess, Arterial -5.6(L) -3.0 - 3.0 mmol/L 07/30/2024 12:58 AM [facility] Hemoglobin, Arterial 13.0(L) 13.7 - 16.5 g/dL 07/30/2024 12:58 AM [facility] Oxyhemoglobin, Arterial 98.4(H) 94.0 - 97.0 % 07/30/2024 12:58 AM [facility] Carboxyhemoglobin , Arterial 0.4 % 07/30/2024 12:58 AM [facility] Comment: Nonsmokers: 0.5-1.5% COHB ?? Smokers: Variable ??but usually less than 10% ?? Toxic: 20-30% COHB ?? Lethal: Greater than 60% COHB Methemoglobin, Arterial 0.1 <=1.5 % 07/30/2024 12:58 AM [facility] Sodium, Arterial 130(L) 135 - 145 mmol/L 07/30/2024 12:58 AM [facility] Potassium, Arterial 4.5 3.5 - 5.0 mmol/L 07/30/2024 12:58 AM [facility] Chloride, Arterial 104 98 - 107 mmol/L 07/30/2024 12:58 AM [facility] Lactate, Arterial 1.3 0.5 - 2.2 mmol/L 07/30/2024 12:58 AM [facility] Flow Rate 2.0 L/min 07/30/2024 [...] CARE TEST ORDERABLES [facility] [place] [address] * (ABNORMAL) Troponin - Single (07/29/2024 10:31 [...] value can be found in the [facility] Laboratory Test Catalog Troponin - [email or web address]/[email or web address] Reference: Fourth [place] Definition of Myocardial Infarction. Journal of the [employer] [employer] 2018;72:7957-9892 Blood VENOUS BLOOD SPECIMEN / Unknown Venipuncture / Unknown 07/29/2024 10:31 PM EST 07/29/2024 10:36 PM EST Yrn Velazquez MD CHEMISTRY ORDERABL ES Performing Organization Address City/[facility]/ZIP Co de Phone Number [facility] [place] [address] * Potassium (07/29/2024 8:11 PM EST) Potassium 4.1 3.5 - 5.0 mMol/L 07/29/2024 8:52 PM EST [facility] Blood VENOUS BLOOD SPECIMEN / Unknown Venipuncture / Unknown 07/29/2024 8:11 PM EST 07/29/2024 8:16 PM EST Aubree Silverio MD CHEMISTRY ORDERABL ES Performing Organization Address [facility]/ZIP Co de Phone Number [facility] [place] [address] * (ABNORMAL) Troponin - Single (07/29/2024 8:11 [...] value can be found in the [facility] Laboratory Test Catalog Troponin - [email or web address]/[email or web address] Reference: [place] Definition of Myocardial Infarction. Journal of the [employer] 2018;72:2908-0642 Blood VENOUS BLOOD SPECIMEN / Unknown Venipuncture / Unknown 07/29/2024 8:11 PM EST 07/29/2024 8:16 PM EST Aubree Silverio MD CHEMISTRY ORDERABL ES [facility] [place] [address] * (ABNORMAL) Phosphorus (07/29/2024 8:11 PM EST) Phosphorus 2.1(L) 2.5 - 4.5 mg/dL 07/29/2024 8:52 PM EST [facility] Blood VENOUS BLOOD SPECIMEN / Unknown Venipuncture / Unknown 07/29/2024 8:11 PM EST 07/29/2024 8:16 PM EST Aubree Silverio MD CHEMISTRY ORDERABL ES [facility] [place] [address] * POC, GLUCOSE (07/29/2024 8:09 PM EST) Glucometer, POC 142 65 - 199 mg/dL 07/29/2024 8:09 PM EST [facility] Comment:Supplemental ranges: <140 mg/dL before meals <180 mg/dL all other times of the day. Blood CAPILLARY BLOOD / Unknown 07/29/2024 8:09 PM EST 07/29/2024 8:09 PM EST Aubree Silverio MD POINT OF CARE TEST ORDERABLES Performing Organization Address City/[facility]/ZIP Co de Phone Number [facility] [place] [address] * ABORH RECHECK (07/29/2024 6:43 PM EST) Pathologist [facility] ABORH Recheck AB POSITIVE 07/29/2024 10:13 PM EST [facility] Blood VENOUS BLOOD SPECIMEN / Unknown Venipuncture / Unknown 07/29/2024 6:43 PM EST 07/29/2024 7:15 PM EST Aubree Silverio MD BLOOD BANK LAB ORD ERABLES Performing Organization Address City/[facility]/ZIP Co de Phone Number [facility] [place] [address] * POC, GLUCOSE (07/29/2024 5:57 PM EST) [facility] Glucometer, POC 166 65 - 199 mg/dL 07/29/2024 5:57 PM EST [facility] Comment:Supplemental ranges: <140 mg/dL before meals <180 mg/dL all other times of the day. Blood CAPILLARY BLOOD / Unknown 07/29/2024 5:57 PM EST 07/29/2024 5:57 PM EST Aubree Silverio MD POINT OF CARE TEST ORDERABLES Performing Organization Address City/[facility]/ZIP Co de Phone Number [facility] [place] [address] * Type and screen ([facility]/CGP/MAGALIE) (07/29/2024 5:56 PM EST) Pathologist [facility] ABORH Type AB POSITIVE 07/29/2024 9:44 PM EST [facility] PATIENT HISTORY Not Found 07/29/2024 9:44 PM EST [facility] Expires at [id number] on: 08/01/2024 07/29/2024 9:44 PM EST [facility] ANTIBODY SCREEN AUTOMATED Negative 07/29/2024 9:44 PM EST [facility] T&S only valid at [facility] 07/29/2024 9:44 PM EST [facility] Blood VENOUS BLOOD SPECIMEN / Unknown Venipuncture / Unknown 07/29/2024 5:56 PM EST 07/29/2024 6:07 PM EST Narrative [facility] - 07/29/2024 9:44 PM EST This Type and Screen result is only valid at the [facility] Hospital Aubree Silverio MD BLOOD BANK LAB ORD ERABLES [facility] [place] [address] * (ABNORMAL) Troponin - Single (07/29/2024 4:52 PM EST) [facility] Troponin-T, High Sensitivity >10,000(H ) <=22 [...] value can be found in the [facility] Laboratory Test Catalog Troponin - [email or web address]/catalogs/565/files/42603 Reference: [place] Definition of Myocardial Infarction. Journal of the [employer] College [employer]iology 2018;72:0778-9181 Blood VENOUS BLOOD SPECIMEN / Unknown Venipuncture / Unknown 07/29/2024 4:52 PM EST 07/29/2024 4:57 PM EST Aubree Silverio MD CHEMISTRY ORDERABL ES Performing Organization Address City/[facility]/ZIP Co de Phone Number [facility] [place] [address] * EKG 12 Lead (07/29/2024 4:21 PM EST) Ventricular rate 72 BPM MUSE SYSTEM Atrial Rate 72 BPM MUSE SYSTEM P-R Interval 168 ms MUSE SYSTEM QRS Duration 82 ms MUSE SYSTEM Q-T Interval 392 ms MUSE SYSTEM QTC Calculated (Bezet) 429 ms MUSE SYSTEM Calculated P [place] 71 degrees MUSE SYSTEM Calculated R [place] 77 degrees MUSE SYSTEM Calculated T [place] 28 degrees MUSE SYSTEM INTERPRETATION Sinus rhythm with Premature supraventricular complexes and Occasional Premature ventricular complexes Low voltage QRS 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) Lateral injury pattern ACUTE [place] / STEMI Abnormal ECG When compared with ECG of 29-JUL-2024 13:43, (unconfirmed) Serial changes of evolving Anteroseptal infarct Present Confirmed by MD Marcus, Roverto (1961) on 07/31/2024 5:30:06 AM MUSE SYSTEM 07/29/2024 4:21 PM EST 07/31/2024 5:30 AM EST Aubree Silverio MD ECG ORDERABLES Performing Organization Address [facility]/ZIP Co de Phone Number MUSE SYSTEM [...] -3.0 - 3.0 mmol/L 07/29/2024 4:22 PM [facility] Hemoglobin, Arterial 12.2(L) 13.7 - 16.5 g/dL 07/29/2024 4:22 PM [facility] Oxyhemoglobin, Arterial 93.8(L) 94.0 - 97.0 % 07/29/2024 4:22 PM [facility] Carboxyhemoglobin , Arterial 0.5 % 07/29/2024 4:22 PM [facility] Comment: Nonsmokers: 0.5-1.5% COHB ?? Smokers: Variable ??but usually less than 10% ?? Toxic: 20-30% COHB ?? Lethal: Greater than 60% COHB Methemoglobin, Arterial 0.3 <=1.5 % 07/29/2024 4:22 PM [facility] Sodium, Arterial 134(L) 135 - 145 mmol/L 07/29/2024 4:22 PM [facility] Potassium, Arterial 4.2 3.5 - 5.0 mmol/L 07/29/2024 4:22 PM [facility] Chloride, Arterial 107 98 - 107 mmol/L 07/29/2024 4:22 PM [facility] Lactate, Arterial 1.5 0.5 - 2.2 mmol/L 07/29/2024 4:22 PM [facility] Fraction of Inspired Oxygen 21 % 07/29/2024 4:22 PM [facility] PF Ratio 338 Ratio 07/29/2024 4:22 PM [facility] Comment:PF ratio calculated using the non-temperature corrected pO2 result. IONIZED CALCIUM, ARTERIAL 1.12(L) 1.15 - 1.33 mmol/L 07/29/2024 4:22 PM [facility] Glucose, Arterial 181 65 - 199 mg/dL 07/29/2024 4:22 PM [facility] Comment:Glucose Concentratio n >=200 mg/dL plus symptoms is consistent with Diabetes Mellitus. Blood ARTERIAL BLOOD / Unknown 07/29/2024 4:21 PM EST 07/29/2024 4:22 PM EST Aubree Silverio MD POINT OF CARE TEST ORDERABLES [facility] [place] [address] * POC, GLUCOSE (07/29/2024 4:19 PM EST) Glucometer, POC 185 65 - 199 mg/dL 07/29/2024 4:19 PM EST [facility] Comment:Supplemental ranges: <140 mg/dL before meals <180 mg/dL all other times of the day. Blood CAPILLARY BLOOD / Unknown 07/29/2024 4:19 PM EST 07/29/2024 4:19 PM EST Aubree Silverio MD POINT OF CARE TEST ORDERABLES Performing Organization Address City/[facility]/ZIP Co de Phone Number [facility] [place] [address] * Blood culture (07/29/2024 4:08 PM EST) Blood Culture No growth at 120 hours 08/03/2024 5:01 PM EST [facility] Blood VENOUS BLOOD SPECIMEN / Unknown Venipuncture / Unknown 07/29/2024 4:08 PM EST 07/29/2024 4:15 PM EST Aubree Silverio MD MICROBIOLOGY - BLO OD ORDERABLES Performing Organization Address City/[facility]/ZIP Co de Phone Number [facility] [place] [address] * Blood culture (07/29/2024 4:08 PM EST) Blood Culture No growth at 120 hours 08/03/2024 5:01 PM EST [facility] Blood VENOUS BLOOD SPECIMEN / Unknown Venipuncture / Unknown 07/29/2024 4:08 PM EST 07/29/2024 4:26 PM EST Aubree Silverio MD MICROBIOLOGY - BLO OD ORDERABLES [facility] [place] [address] * XR Chest One View (07/29/2024 2:30 PM EST) WORKSTATION ID [id number] RAD Anatomical Region Laterality Modality Chest N/A [...] who have questions please contact the health care center manager that requested your imaging first. ? Narrative [...] patients who have questions please contactthe health care center manager that requested your imaging first. Vahe Marvin MD IMG DX ORDERABLES * (ABNORMAL) APTT (07/29/2024 2:03 PM EST) Pathologist [facility] Partial Thromboplastin Time >160([facility]) 25 - 37 sec 07/29/2024 2:56 PM EST [facility] Blood VENOUS BLOOD SPECIMEN / Unknown Venipuncture / Unknown 07/29/2024 2:03 PM EST 07/29/2024 2:13 PM EST Vahe Marvin MD HEMATOLOGY ORDERABLE S [facility] [place] [address] * (ABNORMAL) Prothrombin Time (07/29/2024 2:03 PM [...] MD HEMATOLOGY ORDERABLE S Performing Organization Address City/[facility]/ZIP Co de Phone Number [facility] [place] [address] * CRP, acute inflammation (07/29/2024 2:03 PM EST) C-Reactive Protein <3.0 <=4.9 mg/L 07/29/2024 2:52 PM EST [facility] Blood VENOUS BLOOD SPECIMEN / Unknown Venipuncture / Unknown 07/29/2024 2:03 PM EST 07/29/2024 2:14 PM EST Vahe Marvin MD CHEMISTRY ORDERABLES Performing Organization Address City/[facility]/ZIP Co de Phone Number [facility] [place] [address] * Lipid Panel (Reflex Direct LDL) (07/29/2024 [...] mg/dL HDL Cholesterol 58 mg/dL 2:52 PM [facility] Comment:Males: High Risk: <4 0 mg/dL LDL Cholesterol 64 mg/dL 2:52 PM [facility] Comment: Desirable: <100 mg/dL Above Desirable: 100-129 mg/dL Borderline High: 130-159 mg/dL High: 160-189 mg/dL Very High: > or =190 mg/dL Note: LDL calculation updated to the NIH LDL formula as of 04/15/2024 Non-HDL Cholesterol 75 mg/dL 07/29/2024 2:52 PM [facility] Comment: Desirable: <130 mg/dL Above [...] Marvin MD CHEMISTRY ORDERABLES Performing Organization Address City/[facility]/ZIP Co de Phone Number [facility] [place] [address] * TSH [place] (07/29/2024 2:03 PM EST) [facility] Thyroid Stimulating Hormone 0.70 0.27 - 4.20 mcIU/mL 07/29/2024 2:52 PM EST [facility] Blood VENOUS BLOOD SPECIMEN / Unknown Venipuncture / Unknown 07/29/2024 2:03 PM EST 07/29/2024 2:14 PM EST Vahe Marvin MD CHEMISTRY ORDERABLES Performing Organization Address [facility]/ZIP Co de Phone Number [facility] [place] [address] * Hemoglobin A1c (07/29/2024 2:03 PM EST) [facility] Hemoglobin A1c 5.3 4.3 - 5.6 [...] red blood cell turnover may not be health and safety representative of glycemic control. Reference Interval: 4.3 [...] into estimated average glucose values. ??Diabetes Care 2008:31(8):1172-0122. Additional resources are available on the ADA website (diabetes.org). Vahe Marvin MD CHEMISTRY ORDERABLES [facility] [place] [address] * (ABNORMAL) CBC (with Diff) (07/29/2024 2:03 PM EST) White Blood Cell 19.50(H) 4.00 - 9.50 x10(3)/mc L 07/29/2024 2:18 PM EST [facility] Red Blood Cell 4.81 4.58 - 5.54 x10(6)/mc L 07/29/2024 2:18 PM [facility] Hemoglobin 13.1(L) 13.7 - 16.5 g/dL 07/29/2024 2:18 PM [facility] Hematocrit 40.1(L) 40.5 - 48.5 % 07/29/2024 2:18 PM [facility] Mean Cell Volume 83.4 82.9 - 93.1 fL 07/29/2024 2:18 PM [facility] Mean Cell Hemoglobin 27.2(L) 27.5 - 32.1 pg 07/29/2024 2:18 PM [facility] Mean Cell Hemoglobin Concentration 32.7 32.0 - 35.7 g/dL 07/29/2024 2:18 PM [facility] Platelet 236 145 - 357 x10(3)/mc L 07/29/2024 2:18 PM [facility] Mean Platelet Volume 10.6 7.6 - 12.9 fL 07/29/2024 2:18 PM [facility] RDW Standard Deviation 43.7 36.0 - 45.0 fL 07/29/2024 2:18 PM [facility] RDW coefficient of variation 14.3(H) 11.4 - 13.8 % 07/29/2024 2:18 PM [facility] NRBC% auto 0.0 % 07/29/2024 2:18 PM [facility] NRBC Absolute <0.01 <0.01 x10(3)/mc L 07/29/2024 2:18 PM [facility] Neutrophil % 93.6 % 07/29/2024 2:18 PM [facility] Neutrophil Absolute (ANC) - Automated 18.28(H) 1.70 - 6.10 x10(3)/mc L 07/29/2024 2:18 PM [facility] Lymph % 2.7 % 07/29/2024 2:18 PM [facility] Lymph Absolute 0.52(L) 0.90 - [...] Basophil % 0.3 % 07/29/2024 2:18 PM [facility] Baso Absolute 0.05 0.00 - 0.10 x10(3)/mc L 07/29/2024 2:18 PM EST [facility] Immature Gran % 0.5 % 2:18 PM [facility] Immature Gran Absolute 0.09(H) 0.00 - 0.04 x10(3)/mc L 07/29/2024 2:18 PM EST [facility] Blood VENOUS BLOOD SPECIMEN / Unknown Venipuncture / Unknown 07/29/2024 2:03 PM EST 07/29/2024 2:13 PM EST Vahe Marvin MD HEMATOLOGY ORDERABLE S Performing Organization Address City/State/[facility] Co de Phone Number [facility] [place] [address] * Phosphorus (07/29/2024 2:03 PM EST) Phosphorus 2.5 2.5 - 4.5 mg/dL 07/29/2024 2:52 PM EST [facility] Blood VENOUS BLOOD SPECIMEN / Unknown Venipuncture / Unknown 07/29/2024 2:03 PM EST 07/29/2024 2:14 PM EST Vahe Marvin MD CHEMISTRY ORDERABLES [facility] [place] [address] * Magnesium (07/29/2024 2:03 PM EST) Pathologist [facility] Magnesium 0.70 0.69 - 1.07 mMol/L 07/29/2024 2:52 PM EST [facility] Blood VENOUS BLOOD SPECIMEN / Unknown Venipuncture / Unknown 07/29/2024 2:03 PM EST 07/29/2024 2:14 PM EST Vahe Marvin MD CHEMISTRY ORDERABLES Performing Organization Address City/[facility]/ZIP Co de Phone Number [facility] [place] [address] * (ABNORMAL) Comprehensive metabolic panel (07/29/2024 2:03 PM EST) Pathologist [facility] Glucose 243(H) 65 - 199 mg/dL 07/29/2024 3:11 PM [facility] Comment:Glucose Concentratio n >=200 mg/dL plus symptoms is consistent with Diabetes Mellitus. Blood Urea Nitrogen 13 10 - 20 mg/dL 07/29/2024 3:11 PM [facility] Creatinine 0.88 0.80 - 1.50 mg/dL 07/29/2024 3:11 PM [facility] Sodium 138 135 - 145 mMol/L 07/29/2024 3:11 PM [facility] Potassium 3.6 3.5 - 5.0 mMol/L 07/29/2024 3:11 PM [facility] Chloride 104 98 - 107 mMol/L 07/29/2024 3:11 PM [facility] Carbon Dioxide 19(L) 22 - 31 mMol/L 07/29/2024 3:11 PM [facility] Anion Gap 15 5 - 15 mMol/L 07/29/2024 3:11 PM [facility] Calcium 8.0(L) 8.5 - 10.5 mg/dL 07/29/2024 3:11 PM EST [facility] Protein, Total 6.0(L) 6.1 - 8.0 g/dL 07/29/2024 3:11 PM [facility] Albumin 3.6 3.2 - 5.2 g/dL 07/29/2024 3:11 PM [facility] Aspartate Aminotransferase 07/29/2024 3:11 PM [facility] Comment:Unable to report due to hemolysis. Alanine Aminotransferase 56(H) 0 - 55 unit/L 07/29/2024 3:11 PM [facility] Alkaline Phosphatase 58 40 - 130 unit/L 07/29/2024 3:11 PM [facility] Bilirubin, Total 0.5 <=1.3 mg/dL 07/29/2024 3:11 PM [facility] Est Glomerular Filtration Rate - Male 91 mL/min/1. 73 m?? 07/29/2024 3:11 PM [facility] Comment: This patient's estimated GFR [...] MD CHEMISTRY ORDERABLES [facility] [place] [address] * (ABNORMAL) Troponin - Single (07/29/2024 2:03 PM EST) [facility] Troponin-T, High Sensitivity >10,000(H ) <=22 [...] value can be found in the [facility] Test Catalog Troponin - [email or web address] Reference: Fourth [place] Definition of Myocardial Infarction. Journal of the [employer] 2018;72:8801-5553 Blood VENOUS BLOOD SPECIMEN / Unknown Venipuncture / Unknown 07/29/2024 2:03 PM EST 07/29/2024 2:14 PM EST Vahe Marvin MD CHEMISTRY ORDERABLES [facility] [place] [address] * (ABNORMAL) Blood Gas, Venous POC (07/29/2024 2:01 PM EST) [facility] pH, Venous 7.30(L) 7.32 - 7.42 07/29/2024 2:02 PM EST [facility] PCO2, Venous 42 38 - 58 mmHg 07/29/2024 2:02 PM EST [facility] PO2, Venous 39 16 - 65 mmHg 07/29/2024 2:02 PM [facility] Bicarbonate, Venous 20.1(L) 22 - 31 mmol/L 07/29/2024 2:02 PM [facility] Base Excess, Venous -6.4(L) 1.9 - 4.5 mmol/L 07/29/2024 2:02 PM [facility] Hemoglobin, Venous 14.2 13.7 - 16.5 g/dL 07/29/2024 2:02 PM [facility] Oxyhemoglobin, Venous 69.3 % 07/29/2024 2:02 PM [facility] Carboxyhemoglobin , Venous 0.8 % 07/29/2024 2:02 PM [facility] Comment: Nonsmokers: 0.5-1.5% COHB ?? Smokers: Variable ??but usually less than 10% ?? Toxic: 20-30% COHB ?? Lethal: Greater than 60% COHB Methemoglobin, Venous 0.3 <=1.5 % 07/29/2024 2:02 PM [facility] Sodium, Venous 137 135 - 145 mmol/L 07/29/2024 2:02 PM [facility] Potassium, Venous 3.6 3.5 - 5.0 mmol/L 07/29/2024 2:02 PM [facility] Chloride, Venous 103 98 - 107 mmol/L 07/29/2024 2:02 PM [facility] Glucose, Venous 229(H) 65 - 199 mg/dL 07/29/2024 2:02 PM [facility] Comment:Glucose Concentratio n >=200 mg/dL plus symptoms is consistent with Diabetes Mellitus. Lactate, Venous 3.1(H) 0.5 - 2.2 mmol/L 07/29/2024 2:02 PM [facility] Ionized Calcium, Venous 1.11(L) 1.15 - 1.33 mmol/L 07/29/2024 2:02 PM [facility] Blood VENOUS BLOOD SPECIMEN / Unknown 07/29/2024 2:01 PM EST 07/29/2024 2:02 PM EST Vahe Marvin MD POINT OF CARE TEST O RDERABLES Performing Organization Address [facility]/State/ZIP Co de Phone Number [facility] [place] [address] * CARDIAC CATHETERIZATION (07/29/2024 1:20 PM EST) Anatomical Region Laterality Modality Other Narrative 07/29/2024 2:02 PM EST ?[facility] ? Cardiac Catheterization/Intervention Report ? Patient Name: Korey Montoya Kyrie. ? Procedure Date: 07/29/2024 ? A #: [id number] ? Primary Physician: Vahe Marvin ? Case #: [id number] ? File Name: [id number] ? Catheterization Order Number: [id number] ? [facility] ? Final Report [place], [place] ? Patient Name: ? Korey Montoya ?ID#: ?[id number] ? : ?1950 ? Procedure Date: ? [...] procedure was Emergent. The indication for ?the environmental laboratory technician visit is ACS less than [...] 3.5 guiding catheter and a 3.5 Fr [place] [address] ??20 Mhz using ?Manual pullback. ??Imaging [...] ? A premounted 3.00 x 22 mm [place] Grand (LOW) was deployed ? with a maximum [...] atmospheres. ??A premounted 3.00 x 08 mm [place] Grand (LOW) ? was deployed with a maximum [...] dose administered prior to arrival in the environmental laboratory technician. ?Recommended anti-platelet/anti-thrombotic regimen: ?Start aspirin 81 mg daily now and continue for 12 months then stop. ?Start clopidogrel 75 mg daily now and continue for indefinitely. ?These recommendations are made at the time of the intervention. Patient ?and provider preferences or a changing clinical situation may require ?modification of this regimen. Consult [facility] Interventional Cardiology for ?questions. ?The 1 year [...] able ?to start weaning his inotropes/vasopressors. A [place] Colette catheter was ?placed demonstrating improvement [...] ventricular assist device insertion, right heart ?catheterization, [place] (flow directed cath) insertion, access site ?angiography, vascular ultrasound, venous line / sheath insert and vascular ?closure device. ? Vahe S Shavonne, M.D. ? Electronically Signed by: Vahe Cobosstein, M.D. ? Report Finalized: 07/29/2024 ??13:55 ? Report Last Ammended: 07/30/2024 ??10:15 ? Procedure Note Vahe Marvin MD - 07/30/[address] [facility] Cardiac Catheterization/Intervention Report Patient Name: Korey Montoya Procedure Date: 07/29/2024 A #: [id number] Primary Physician: Vahe Marvin Case #: [id number] File Name: [id number] Catheterization Order Number: [id number] [facility] FinalReport [place], [place] Patient Name: Korey Montoya ID#:[id number] :1950 Procedure Date: July 29, 2024 Case [...] was designated as ASA Class IV. The [facility] 4: Vulnerable. Diagnostic Tests: Electrocardiography: EKG was assessed by ECG. EKG was Abnormal. EKG showed STDeviation >= 0.5 mm. Medications Prior to Procedure: Angiotensin II Receptor Elvis and Statin. Indications for Diagnostic Cath: The priority of the diagnostic procedure was Emergent. Theindication for the environmental laboratory technician visit is ACS less than [...] 3.5 guiding catheter and a 3.[address] 20 Mhzusing Manual pullback. Imaging was [...] The priority for the procedure was Emergent.The [facility] indication for the procedure was [...] The lesion was predilated with a 2.00mm OEHGHBV31 MM balloon with a maximum inflation pressure of 12atmospheres. A premounted 3.00 x 22 mm [place] Grand (LOW) wasdeployed with a maximum inflation pressure [...] atmospheres. A premounted 3.00 x 08 mm [place] Grand(LOW) was deployed with a maximum inflation pressure [...] dose administered prior to arrival in the environmental laboratory technician. Recommended anti-platelet/anti-thrombotic regimen: Start aspirin 81 mg daily now and continue for 12 months then stop. Start clopidogrel 75 mg daily now and continue for indefinitely. These recommendations are made at the time of the intervention.Patient and provider preferences or a changing clinical situation mayrequire modification of this regimen. Consult [facility] Interventional Cardiologyfor questions. The 1 year bleeding [...] wereable to start weaning his inotropes/vasopressors. A [place] Colette catheterwas placed demonstrating improvement in [...] ventricular assist device insertion, right heart catheterization, [place] (flow directed cath) insertion, access site angiography, vascular ultrasound, venous line / sheath insert andvascular closure device. Vahe Marvin M.D. Electronically Signed by: Vahe Marvin M.D. Report Finalized: 07/29/2024 13:55 Report Last Ammended: 07/30/2024 10:15 Vahe Marvin MD CARDIAC CATH ORDERAB LES * (ABNORMAL) BLOOD GAS, POC (07/29/2024 12:46 PM EST) Sodium, POC 139 135 - 145 mmol/L 07/30/2024 7:30 AM [facility] Potassium, POC 3.4(L) 3.5 - 5.0 mmol/L 07/30/2024 7:30 AM [facility] pH, POC 7.33(L) 7.35 - 7.45 07/30/2024 7:30 AM [facility] Ionized Calcium, POC 1.13(L) 1.15 - 1.33 mmol/L 07/30/2024 7:30 AM [facility] pCO2, POC 38 35 - 45 mmHg 07/30/2024 7:30 AM [facility] pO2, POC 94 85 - 104 mmHg 07/30/2024 7:30 AM [facility] Base Excess, POC -6.0(L) -3.0 - 3.0 mmol/L 07/30/2024 7:30 AM [facility] Hematocrit, POC 39.0(L) 40.5 - 48.5 %PCV 07/30/2024 7:30 AM [facility] Hemoglobin, POC 13.3(L) 13.7 - 16.5 g/dL 07/30/2024 7:30 AM [facility] Comment:The calculation of h emoglobin from hematocrit assumes a normal MCHC. Bicarbonate, POC 19.8(L) 20.0 - 26.0 mmol/L 07/30/2024 7:30 AM [facility] Carbon Dioxide, POC 21(L) 22 - 31 mmol/L 07/30/2024 7:30 AM [facility] Blood VENOUS BLOOD SPECIMEN / Unknown 07/29/2024 12:46 PM EST 07/30/2024 7:30 AM EST Vahe Marvin MD POINT OF CARE TEST O RDERABLES [facility] [place] [address] * (ABNORMAL) BLOOD GAS, POC (07/29/2024 12:12 PM EST) Sodium, POC 135 135 - 145 mmol/L 07/30/2024 7:30 AM [facility] Potassium, POC 3.8 3.5 - 5.0 mmol/L 07/30/2024 7:30 AM [facility] pH, POC 7.27(LLL) 7.35 - 7.45 07/30/2024 7:30 AM [facility] Ionized Calcium, POC 1.14(L) 1.15 - 1.33 mmol/L 07/30/2024 7:30 AM [facility] pCO2, POC 43 35 - 45 mmHg 07/30/2024 7:30 AM [facility] pO2, POC 131(H) 85 - 104 mmHg 07/30/2024 7:30 AM [facility] Base Excess, POC -7.0(L) -3.0 - 3.0 mmol/L 07/30/2024 7:30 AM [facility] Hematocrit, POC 36.0(L) 40.5 - 48.5 %PCV 07/30/2024 7:30 AM [facility] Hemoglobin, POC 12.2(L) 13.7 - 16.5 g/dL 07/30/2024 7:30 AM [facility] Comment:The calculation of h emoglobin from hematocrit assumes a normal MCHC. Bicarbonate, POC 19.7(L) 20.0 - 26.0 mmol/L 07/30/2024 7:30 AM [facility] Carbon Dioxide, POC 21(L) 22 - 31 mmol/L 07/30/2024 7:30 AM [facility] Blood VENOUS BLOOD SPECIMEN / Unknown 07/29/2024 12:12 PM EST 07/30/2024 7:30 AM EST Vahe Marvin MD POINT OF CARE TEST O RDERABLES Performing Organization Address City/State/[facility] Co de Phone Number [facility] [place] [address] documented in this encounter Visit Diagnoses Not [...] Until Discontinued, Routine 1352 (Given - Provider: Parvni Strauss RN)2024 (Given - Provider: Edouard Wisdom [...] Routine documented in this encounter Care Teams Field Crop Farmer Relationship Specialty Start Date End Date Yoel Artis APRN [address] [place] [address] PCP - General Internal Medicine 11/18/22 07/29/24 documented as of this encounter
--- OUTSIDE RECORDS SUMMARY | 2024-08-24 11:24 | XMS_ITS | Encounter Summary ---
[place] [address] Care Team Providers Care Diamond Sorter Name Role Phone Yoel Artis FREDRICK Primary Care Provider [phone] Encounter Details Date Type Department Care Team (Late st Contact Info) Description 01/16/2024 Interpretation Only [facility] [address] [place] [address] Chaparro Montana MD [address] [place] [address] Social History Tobacco Use Types Packs/Day Years [...] 10:00 AM EST Office Visit Cardiology at [address] [address] Mushtaq Murphy APRN documented as of this encounter Procedures Procedure Name Priority Date/Time Associated Diagnosis Comments XR CHEST ONE VIEW STAT 01/16/2024 4:0 4 PM EDT documented in this encounter Results * XR Chest One View (01/16/2024 4:04 PM EDT) PT CLASS E RAD ADMITDTTM [id number] [facility] PT RAD INFO [id number]^Jordy henry^Chaparro RAD EXAM DESC XCXR1^XR Chest 1 View^RIS [facility] WORKSTATION ID [id number] [facility] Anatomical Region Laterality Modality Chest N/A Radiographic Farida ging 01/16/2024 4:04 PM EDT Impressions 01/16/2024 4:08 PM EDT No active cardiopulmonary disease. Thank you for letting us participate in the care of this patient. ??If you are a health care provider and have any questions regarding this report, please contact the number below. ??For patients who have questions please contact the health direct care counselor that requested your imaging first. ? Electronically signed by: Alexey Winslow MD, [facility] ([phone]), at 01/16/2024 4:08 PM Narrative 01/16/2024 4:08 [...] patients who have questions please contactthe health direct care counselor that requested your imaging first. Electronically signed by: Alexey Winslow MD, [facility]([phone]), at 01/16/2024 4:08 PM Chaparro Montana MD IMG DX ORDERABLES documented in this encounter Visit Diagnoses Not on filedocumented in this encounter Care Teams Diamond Sorter Relationship Specialty Start Date End Date Yoel Artis APRN [address] [place] [address] PCP - General Internal Medicine 11/18/22 07/29/24 documented as of this encounter
--- OUTSIDE RECORDS SUMMARY | 2024-08-24 11:24 | XMS_ITS | Encounter Summary ---
[place] [address] Care Team Providers Care Wirer Passenger Car Name Role Phone Yoel Artis FREDRICK Primary Care Provider [phone] Encounter Details Date Type Department Care Team (Late st Contact Info) Description 07/28/2024 Interpretation Only [address] [address] Quinten Coffey MD [address] [place] [address] Social History Tobacco Use Types Packs/Day Years [...] 10:00 AM EST Office Visit Cardiology at [address] [address] Mushtaq Murphy APRN documented as of this encounter Procedures Procedure Name Priority Date/Time Associated Diagnosis Comments XR CHEST ONE VIEW STAT 07/28/2024 10: 22 AM EST documented in this encounter Results * XR Chest One View (07/28/2024 10:22 AM EST) PT CLASS E RAD ADMITDTTM [id number] RAD PT RAD INFO [id number]^Alexx ^Quinten RAD EXAM DESC XCXR1^XR Chest 1 [...] have questions please contact the health manager medicare marketing that requested your imaging first. ? Narrative [...] who have questions please contactthe health manager medicare marketing that requested your imaging first. Quinten Coffey MD IMG DX ORDERABLES documented in this encounter Visit Diagnoses Not on filedocumented in this encounter Care Teams Wirer Passenger Car Relationship Specialty Start Date End Date Yoel Artis APRN [address] [place] [address] PCP - General Internal Medicine 11/18/22 07/29/24 documented as of this encounter
--- OUTSIDE RECORDS SUMMARY | 2024-08-24 11:24 | XMS_ITS | Encounter Summary ---
Author Organization [facility] Address [facility] [address] Care Team Providers Care Stage Rigger Name Role Phone Yoel Artis Ute ALCALA Primary Care Provider [phone] Encounter Details Date Type Department Care Team (Late st Contact Info) Description 07/29/2024 Orders [place] [address] Susannah Watts PA [facility] [place] [address] Social History Tobacco Use Types Packs/Day Years Used Date Smoking Tobacco: Former Cigarettes Smokeless Tobacco: Never Alcohol Use Standard Drinks/Week Comments Not Currently 0 (1 standard drink = 0.6 oz pur e alcohol) [facility] Utilities Answer Date Recorded In the past 12 months has [employer] gas, oil, or water [employer] threatened to shut off services in your [...] time in the past 12 m [facility], were you homeless or living in a fpc (including now)? No 07/30/2024 IPV Inpatient Questions [...] 10:00 AM EST Office Visit Cardiology at [address] [phone] Mushtaq Murphy APRN documented as of this encounter Procedures Procedure Name Priority Date/Time Associated Diagnosis Comments ECHOCARDIOGRAM TRANSTHORACIC Routine 07/30/2024 1:41 AM EST documented in this encounter Results * Echocardiogram Transthoracic (07/30/2024 1:41 AM EST) Anatomical Region Laterality Modality Cardiac Other 07/30/2024 1:41 AM EST Narrative 07/30/2024 8:23 AM EST [address] [place] [address] ? Echocardiogram Report Name: KOREY BERMUDEZ ? Study Date: 07/30/2024 01:41 AM : 1950 ? Height: 168 cm Age: 74 yrs ? Weight: 5.9 kg Gender: Male ?BSA: 0.63 m2 Performed By: Beatris Ching MD Reason For Study: STEMI, [place] History: ASCVD, HTN, HLD Interpreting Fellow: Beatris Ching. Interpretation Summary This is a limited study performed by a fellow labor union business representative to evaluate for cardiogenic shock with impella [...] study available for comparison. Procedure Limited - 05540. Suboptimal quality. There is sinus bradycardia. Left [...] Note Kathleen Banda MD - 07/30/2024 [address] [place] [address] Echocardiogram Report Name: LARA KOREY Kyrie Study Date: 07/30/2024 01:41AM : 1950 Height: 168 cm Age: 74 yrs Weight: 5.9 kg Gender: Male BSA: 0.63 m2 Performed By: Beatris Ching MD Reason For Study: STEMI, [place] History: ASCVD, HTN, HLD Interpreting Fellow: Beatris Ching. Interpretation Summary This is a limited study performed by a fellow labor union business representative to evaluate forcardiogenic shock with impella in. [...] study available for comparison. Procedure Limited - 43911. Suboptimal quality. There is sinus bradycardia. Left [...] on filedocumented in this encounter Care Teams Stage Rigger Relationship Specialty Start Date End Date Yoel Artis APRN [address] [place] [address] PCP - General Internal Medicine 11/18/22 07/29/24 documented as of this encounter
--- OUTSIDE RECORDS SUMMARY | 2024-08-24 11:24 | XMS_ITS | Encounter Summary ---
Author Organization [facility] [place] [address] Care Team Providers Care Therapist Name Role Phone Alexia Mtz FILM PROCESS OPERATOR Primary Care Provider [phone] Encounter Details Date Type Department Care Team (Late st Contact Info) Description 06/25/2024 Lab [place] [address] Aubrey Cali MD [address] [place] [address] Pyuria Social History Tobacco Use Types Packs/Day [...] AM EST Office Visit Cardiology at [address] [phone] Mushtaq Murphy APRN documented as of this encounter Procedures Procedure Name Priority Date/Time Associated Diagnosis Comments URINE CULTURE Routine 06/25/2024 11:55 AM EDT Pyuria documented in this encounter Results * Urine culture (06/25/2024 11:55 AM EDT) Urine Culture No growth 06/26/2024 12:22 PM EDT [facility] Urine URINE SPECIMEN OBTAINED BY CLEAN CATCH PROCEDURE / Unknown 06/25/2024 11:55 AM EDT 06/25/2024 5:18 PM EDT Aubrey Cali MD MICROBIOLOGY - GENER AL ORDERABLES [facility] [place] [address] documented in this encounter Visit Diagnoses Diagnosis Pyuria Other nonspecific finding on examination of urine documented in this encounter Care Teams Therapist Relationship Specialty Start Date End Date Alexia Mtz, FILM PROCESS OPERATOR [address] [place] [address] PCP - General Family Medicine 07/30/24 documented as of this encounter
--- OUTSIDE RECORDS SUMMARY | 2024-08-24 11:24 | XMS_ITS | Encounter Summary ---
Author Organization [facility] [address] Care Team Providers Care Mathematics Academic Chair Name Role Phone Yoel Artis Ute ALCALA Primary Care Provider [phone] Reason for Visit * Auth/Cert (Routine) Specialty Diagnoses / Procedures Referred By Conteleazar t Referred To Contact Diagnoses Anal spasm Fecal smearing Constipation, unspecified Rectal pain, fecal smearing Procedures PRO COLONOSCOPY, DIAGNOSTIC PRO COLONOSCOPY, BIOPSY PRO COLONOSCOPY, REMV LESN, SNARE COLONOSCOPY, DIAGNOSTIC (WRVU 3.26) Brandan Mcgovern MD [facility] [place] [address] [facility] Referral ID Status Reason Start Date Expiration Date Visits Re quested Visits Authorized [id number] 1 1 Encounter Details Date Type Department Care Team (Late st Contact Info) Description 08/30/2023 11:00 AM EST - 08/30/2023 12:00 PM EST Surgery [place] [address] Brandan Mcgovern MD [facility] [place] [address] COLONOSCOPY, POLYPECTOMY, REMOVAL LESION BY SNARE (WRVU [...] occurs, please contact your Doctor. Please call [phone] before 8pm Mon-Fri with problems, questions or concerns. If you call after 8pm or on weekends, call the Hospital at [phone] and ask to speak to the Electrotype Caster production or plant engineer and the hide measuring machine operator will contact that person for you. When should you call for help? Call [phone] anytime you think you may need emergency [...] any problems. Where can you learn more? [facility] View your After Visit Summary and more online at [email or web address] If you would like to provide feedback about your hospital experience, please call the Office of Patient and Family Relations at . If you have received this After Visit Summary in error, please immediately return it in person to the department, or notify the [facility] Privacy Office by calling toll free at between the hours of 8AM and 5PM to arrange for our retrieval of the documents at no cost to you. Content Version: 12.2 ?? [id number] [employer]. Care instructions adapted under license by [facility]. If you have questions about a medical condition or this instruction, always ask your healthcare professional. [employer] disclaims any warranty or liability for your [...] evening. 04/17/2023 08/04/2024 nitroGLYcerin (NITROLINGUAL) 400 mcg/spray Topaz, Non-AerosolIndications:P roctalgia fugax,Fecal smearing,Constipation, unspecified constipation type [...] 10:00 AM EST Office Visit Cardiology at [address] [address] Mushtaq Murphy APRN documented as of this encounter Procedures Procedure Name Priority Date/Time Associated Diagnosis Comments SPECIMEN TO PATHOLOGY Routine 08/30/2023 11:23 AM EST SURGICAL PATHOLOGY REPORT Routine 08/30/2023 11:21 AM EST COLONOSCOPY Routine 08/30/2023 10:57 AM EST Colonoscopy, Remv Lesn, Snare ([id number]) 08/30/2023 10:44 AM EST Proctalgia fugax Fecal smearing Constipation, unspecified constipation type documented in this encounter Results * Specimen to Pathology (08/30/2023 11:23 AM EST) AP Specimen 08/30/2023 11:2 3 AM EST 08/30/2023 11:23 AM EST Narrative [facility] - 08/30/2023 11:23 AM EST Specimen requisition ordered. ??Separate Pathology report to follow Brandan Mcgovern MD PATHOLOGY/CYTOLOGY O JOSH Performing Organization Address [facility]/ZIP Co de Phone Number [facility] [place] [address] * Surgical Pathology Report (08/30/2023 11:21 AM EST) Final Diagnosis [id number] ? Location: 4T; EA12; A The signing pathologist has (i) examined the relevant preparation(s) for the specimen(s) and (ii) rendered or confirmed the diagnosis(es). . ?Surgical Pathology DIAGNOSIS A - Sigmoid colon polyp, resection (Multiple): - ??Tubular adenoma. CR-PX Electronically signed by: ?Blake ORTEGA PhD, Yulia Verified: ??09/08/2023 14:48 ??Pathologist Performed at: ??-[facility] Dept. of Pathology, [place] [address] Insulation Technician: eFrcho Chan MD, AP, ??CLIA Certificate: [id number] SPECIMEN(S) SUBMITTED A - Sigmoid colon polyp, resection (Multiple) CLINICAL INFORMATION 73-year-old male, history of rectal pain SPECIMEN PROCESSING A - Labeled/Fixativ e: Sigmoid colon polyp, formalin. Quantity/Size: Single, 0.8 cm. Tissue Description: Soft, candelaria tissue. Sections/Proces sing: Submitted in toto ??in 1 cassette labeled A1. ??sdy 09/08/2023 2:48 PM EST [facility] GI Biopsy 08/30/2023 11:2 1 AM EST 08/30/2023 11:21 AM EST Brandan Mcgovern MD PATHOLOGY/CYTOLOGY O JOSH [facility] [place] [address] [place] [address] * COLONOSCOPY (08/30/2023 10:57 AM EST) [facility] COLONOSCOPY [facility] Endoscopy Procedure Date: 08/30/2023 10:57 AM ? Patient Name: Korey Montoya ? Date of : 1950 ? Age: 73 ? Order #: [id number] ? Instrument Name: [id number] ? Procedure: ? Colonoscopy Indications: ? Rectal pain Providers: ? Brandan Mcgovren, Tika Fowler, Ty ? Bermudez Referring MD: [...] preparation was evaluated ? using the BBPS (Hollis Bowel ? Preparation Scale) with scores of: [...] personally performed the entire procedure. ? Brandan cMgovern Brandan Mcgovern, 08/30/2023 11:29:25 AM Number of [...] RN) documented in this encounter Care Teams Mathematics Academic Chair Relationship Specialty Start Date End Date Yoel Artis, FREDRICK [address] [place] [address] PCP - General Internal Medicine 11/18/22 07/29/24 documented as of this encounter
--- OUTSIDE RECORDS SUMMARY | 2024-08-24 11:24 | XMS_ITS | Encounter Summary ---
Author Organization Replaced By [facility] Address [facility] [place] [address] Care Team Providers Care Client Support Administrator Name Role Phone Carola Artis APRN Primary Care Provider [phone] Encounter Details Date Type Department Care Team (Latest Contact Info) Description 11/30/2023 8:00 AM EDT TH Visit (TeleHealth) [place] [address] Carola Dangelo APRN [facility] [place] [address] Proctalgia fugax; Constipation, unspecified constipation type Social [...] Handout for Patients and Primary Care Providers [facility] Gastrointestinal Motility, Esophageal, and Swallowing Disorders Center What are functional bowel disorders? These are the most common type of gastrointestinal disorders in the [facility] The most common functional bowel disorder in [...] what is the impact? 15-20% of general [place] population has IBS or FD or both 2nd most common cause for lost work days (after common cold) in [place] Estimated $30 billion dollar cost to [place] economy per year These disorders can have [...] with immediate onset of symptoms after infection); watermelon inspector symptoms are expected in most patients however [...] to you primary care provider and/or local plastic shaper and share this document. Treatment of functional [...] - this approach benefits most patients OTC (rwak-oxs-umtjyyy) medications can be used for ongoing bothersome symptoms as listed below Your provider (PCP or local Gastroenterology provider or [facility] Gastroenterology provider) may decide to use [...] All-Bran psyllium buds, Metamucil, Konsyl, bulk psyllium ([place] and [place] stores) Specifically we recommend starting Metamucil or [...] but convincing medical evidence is still lacking Cckq-vnx-fefnivm supplements including probiotics are not typically evaluated [...] to decrease antibiotic-associated diarrhea and antibiotic-related infections Ttcp-nzl-Ilmdeee Medications for Functional Gut Disorders Based on [...] a stool softener that is safe for jail usage (no risk of dependency) andthe dosage [...] (GERD) Often a combination of anti-nausea medications (yecr-bxe-fvejknp or prescription) works better thanhigh doses of [...] for misuse/misinterpretation of this information Patient Resources [place] [employer] https://www.gastro.org/practice-guidance/xp-ieznsdc-fxlsdj/ topic/zybqmxyrc-iwxmn-vzfnhjtu-ibs Badgut.org https://badgut.org/information-centre/k-b-vvedmtlzg-topics/ibs/ AboutIBS.org https://www.aboutibs.org/ Uptodate.com https://www.uptodate.com/contents/dfejyanwx-cakwi-kqxvdozp-ogaopq-xoa-bdtgdm documented in this encounter Progress Notes * [...] Take by mouth. nitroGLYcerin (NITROLINGUAL) 400 mcg/spray [place], Non-Aerosol 1 spray to anus for proctalgia fugax as needed, not to exceed once daily 12 g 0 No facility-administered medications prior to visit. Allergies: has No Known Allergies. Past Medical History: has a past medical history of ADHD, HLD (hyperlipidemia), HTN (hypertension),and Tremor. Past Surgical History: has a past surgical history that includes Hand surgery and Colonoscopy, Antonieta Pfeiffer ([id number]) (N/A, 08/30/2023). Family History: family history is [...] for re-evaluation. The patient was located in [place] at the time of their visit. Carola Dangelo APRN [facility] [place] [address] documented in this encounter Miscellaneous Notes * Addendum Note - Carola Dangelo APRN - 11/30/2023 8:00 AM EDTAddended by: CAROLA DANGELO on: 11/30/2023 08:46 AM Modules accepted: Level of Service documented in this encounter Plan of Treatment Upcoming Encounters Date Type Department Care Team (Late st Contact Info) Description 10/01/2024 10:00 AM EST Office Visit Cardiology at [address] [address] Mushtaq Murphy APRN documented as of this encounter Visit Diagnoses Diagnosis Proctalgia fugax Anal spasm Constipation, unspecified constipation type documented in this encounter Care Teams Client Support Administrator Relationship Specialty Start Date End Date Carola Artis APRN [address] [place] [address] PCP - General Internal Medicine 11/18/22 07/29/24 documented as of this encounter
--- OUTSIDE RECORDS SUMMARY | 2024-08-24 11:24 | XMS_ITS | Encounter Summary ---
[place] [address] Care Team Providers Care Production Supervisor Name Role Phone Alexia Mtz ASSEMBLER [employer]ILITY BUILDINGS Primary Care Provider [phone] Encounter Details Date Type Department Care Team (Late st Contact Info) Description 07/29/2024 External [place] [phone] Social History Tobacco Use Types Packs/Day Years Used Date Smoking Tobacco: Former Cigarettes Smokeless Tobacco: Never Alcohol Use Standard Drinks/Week Comments Not Currently 0 (1 standard drink = 0.6 oz pur e alcohol) [facility] Utilities Answer Date Recorded In the [...] 10:00 AM EST Office Visit Cardiology at [address] [address] Mushtaq Murphy APRN documented as of this encounter Procedures Procedure Name Priority Date/Time Associated Diagnosis Comments MISC EXTERNAL CARDIOLOGY RESULT Routine 07/29/2024 10:13 AM EST documented in this encounter Results * External Cardiology Result (07/29/2024 10:13 AM EST) Anatomical Region Laterality Modality Other Historical Provider EXTERNAL CARDIOLO GY RESULT documented in this encounter Visit Diagnoses Not on filedocumented in this encounter Care Teams Production Supervisor Relationship Specialty Start Date End Date Alexia Mtz APRN [address] [place] [address] PCP - General Family Medicine 07/30/24 documented as of this encounter
--- OUTSIDE RECORDS SUMMARY | 2024-08-24 11:24 | XMS_ITS | Encounter Summary ---
[place] [address] Care Team Providers Care Plaster Machine Operator Name Role Phone Yoel Artis FREDRICK Primary Care Provider [phone] Encounter Details Date Type Department Care Team (Late st Contact Info) Description 01/16/2024 Interpretation Only [facility] [address] [place] [address] Chaparro Montana MD [address] [place] [address] Social History Tobacco Use Types Packs/Day Years [...] AM EST Office Visit Cardiology at [address] [address] Mushtaq Murphy APRN documented as of this encounter Procedures Procedure Name Priority Date/Time Associated Diagnosis Comments CT HEAD WO CONTRAST (GENERIC) STAT 01/16/2024 4:17 PM EDT documented in this encounter Results * CT Head wo Contrast (Generic) (01/16/2024 4:17 PM EDT) PT CLASS E RAD ADMITDTTM [id number] RAD PT RAD INFO [id number]^Haniss henry^Chaparro RAD EXAM DESC CTHEAD^CT Head w/o Contrast^[facility] WORKSTATION ID RADDRIMAGE [facility]IVER [facility] [place] Anatomical Region Laterality Modality Head Computed Tomogra phy 01/16/2024 4:03 PM EDT Impressions 01/16/2024 4:25 PM EDT No acute intracranial pathology. Thank you for letting us participate in the care of this patient. ??If you are a health care provider and have any questions regarding this report, please contact the number below. ??For patients who have questions please contact the health managed care nurse that requested your imaging first. ? Narrative [...] patients who have questions please contactthe health managed care nurse that requested your imaging first. Electronically signed by: Alejandro Tenorio MD, [facility]([phone]), at 01/16/2024 4:25 PM Chaparro Montana MD IMG CT ORDERABLES documented in this encounter Visit Diagnoses Not on filedocumented in this encounter Care Teams Plaster Machine Operator Relationship Specialty Start Date End Date Yoel Artis APRN [address] [place] [address] PCP - General Internal Medicine 11/18/22 07/29/24 documented as of this encounter
--- OUTSIDE RECORDS SUMMARY | 2024-08-24 11:24 | XMS_ITS | Encounter Summary ---
Author Organization [facility] [place] [address] Care Team Providers Care Final Inspector Paper Name Role Phone Yoel Artis Ute ALCALA Primary Care Provider Encounter Details Date Type Department Care Team (Late st Contact Info) Description 01/16/2024 5:46 PM EDT - 01/16/2024 11:59 PM EDT Hospital Encounter [facility] [address] [place] [address] Chaparro Montana MD [address] [place] [address] Discharge Disposition: Home Social History Tobacco Use [...] evening. 04/17/2023 08/04/2024 nitroGLYcerin (NITROLINGUAL) 400 mcg/spray [place], Non-AerosolIndications:P roctalgia fugax,Fecal smearing,Constipation, unspecified constipation type 1 spray to anus for proctalgia fugax as needed, not to exceed once daily 12 g 06/01/2023 08/04/2024 documented as of this encounter Plan of Treatment Upcoming Encounters Date Type Department Care Team (Late st Contact Info) Description 10/01/2024 10:00 AM EST Office Visit Cardiology at [address] [address] Mushtaq Murphy APRN documented as of this encounter Procedures Procedure Name Priority Date/Time Associated Diagnosis Comments URINE CULTURE Routine 01/16/2024 4:00 PM EDT documented in this encounter Results * Urine culture (01/16/2024 4:00 PM EDT) Urine Culture No growth (Less than 1,000 cfu/ml). [facility] Urine 01/16/2024 4:00 PM EDT 01/16/2024 10:36 PM EDT Narrative Resulting Agency Comment Spec In Lab Chaparro Montana MD MICROBIOLOGY - [facility] ORDERABLES [facility] [place] [address] documented in this encounter Visit Diagnoses Not on filedocumented in this encounter Care Teams Final Inspector Paper Relationship Specialty Start Date End Date Yoel Artis APRN [address] [place] [address] PCP - General Internal Medicine 11/18/22 07/29/24 documented as of this encounter
--- OUTSIDE RECORDS SUMMARY | 2024-08-24 11:25 | XMS_ITS | Encounter Summary ---
Author Organization [facility] [place] [address] Care Team Providers Care Boat Engine Mechanic Name Role Phone Yoel Artis APRN Primary Care Provider [phone] Reason for Referral * Consultation (Routine) - Closed Specialty Diagnoses / Procedures Referred By Theodore muro Referred To Contact Gastroenterology Diagnoses Anal spasm motility- anal spasms Yoel Artis APRN [address] [place] [address] [facility] [address] [place] [phone] Referral ID Status Reason Start Date Expiration Date V isits Requested Visits Authorized [id number] Closed Consult, Test & Treat PCP Updated and/or Approved 11/18/2022 11/18/2023 6 6 Encounter Details Date Type Department Care Team (Late st Contact Info) Description 11/18/2022 Transcribe Orders eDH Incoming Referrals [phone] Yoel Artis APRN [address] [place] [address] Anal spasm Social History Tobacco [...] AM EST Office Visit Cardiology at [address] [address] Mushtaq Murphy APRN Scheduled Referrals Name Type Priority Associated Diagnoses Order Schedule Referral to Gastroenterology Outpatient Referral Routine Anal spasm Ordered: 11/18/2022 documented as of this encounter Visit Diagnoses Diagnosis Anal spasm documented in this encounter Care Teams Boat Engine Mechanic Relationship Specialty Start Date End Date Yoel Artis APRN [address] [place] [address] PCP - General Internal Medicine 11/18/22 07/29/24 documented as of this encounter
--- OUTSIDE RECORDS SUMMARY | 2024-08-24 11:25 | XMS_ITS | Encounter Summary ---
Author Organization Replaced By [facility] [place] [address] Care Team Providers Care Job Interviewer Name Role Phone Yoel Artis APRN Primary Care Provider Encounter Details Date Type Department Care Team (Late st Contact Info) Description 03/01/2023 9:30 AM EDT - 03/01/2023 11:59 PM EDT Hospital Encounter [facility] [address] [place] [address] Yoel Artis APRN [address] [place] [address] Discharge Disposition: Home Social History Tobacco Use [...] AM EST Office Visit Cardiology at [address] [address] Mushtaq Murphy APRN documented as of this encounter Procedures Procedure Name Priority Date/Time Associated Diagnosis Comments PSA (ULTRASENSITIVE) Routine 03/01/2023 9:38 AM EDT documented in this encounter Results * (ABNORMAL) PSA (Ultrasensitive) (03/01/2023 9:38 AM EDT) Prostate Specific Antigen (Ultrasensitive) 5.09(H) 0.00 - 4.00 ng/mL [facility] Comment: PLEASE NOTE: The above reference [...] In Lab Yoel Artis APRN CHEMISTRY ORDERABLES [facility] [place] [address] documented in this encounter Visit Diagnoses Not on filedocumented in this encounter Care Teams Job Interviewer Relationship Specialty Start Date End Date Yoel Artis APRN [address] [place] [address] PCP - General Internal Medicine 11/18/22 07/29/24 documented as of this encounter
--- OUTSIDE RECORDS SUMMARY | 2024-08-24 11:25 | XMS_ITS | Encounter Summary ---
[place] [address] Care Team Providers Care News Clerk Name Role Phone Yoel Artis APRN Primary Care Provider [phone] Reason for Referral * Consultation (Routine) - Closed Specialty Diagnoses / Procedures Referred By Theodore muro Referred To Contact Urology Diagnoses Raised prostate specific antigen PERSISTENTLY MILDLY ELEVATED PSA, URINARY FREQ Yoel Artis APRN [address] [place] [address] [facility] [place] [address] Referral ID Status Reason Start Date Expiration Date V isits Requested Visits Authorized [id number] Closed Consult, Test & Treat PCP Updated and/or Approved 07/30/2023 07/29/2024 6 6 Encounter Details Date Type Department Care Team (Late st Contact Info) Description 07/30/2023 Transcribe Orders eDH Incoming Referrals [phone] Yoel Artis APRN [address] [place] [address] Raised prostate specific antigen Social [...] 10:00 AM EST Office Visit Cardiology at [address] [address] Mushtaq Murphy APRN Scheduled Referrals Name Type Priority Associated Diagnoses Orde r Schedule Referral to Urology Outpatient Referral Routine Raised prostate specific antigen Ordered: 07/30/2023 documented as of this encounter Visit Diagnoses Diagnosis Raised prostate specific antigen Elevated prostate specific antigen (PSA) documented in this encounter Care Teams News Clerk Relationship Specialty Start Date End Date Yoel Artis APRN [address] [place] [address] PCP - General Internal Medicine 11/18/22 07/29/24 documented as of this encounter
--- OUTSIDE RECORDS SUMMARY | 2024-08-24 11:25 | XMS_ITS | Encounter Summary ---
Author Organization [facility] [place] [address] Care Team Providers Care Dude Ranch Manager Name Role Phone Yoel Artis APRN Primary Care Provider Encounter Details Date Type Department Care Team (Late st Contact Info) Description 12/23/2022 8:20 AM EDT - 12/23/2022 11:59 PM EDT Hospital Encounter [facility] [address] [place] [address] Yoel Artis APRN [address] [place] [address] Discharge Disposition: Home Social History Tobacco Use [...] 10:00 AM EST Office Visit Cardiology at [address] [address] Muhstaq Murphy APRN documented as of this encounter Procedures Procedure Name Priority Date/Time Associated Diagnosis Comments PSA SCREEN Routine 12/23/2022 8:43 AM EDT documented in this encounter Results * (ABNORMAL) PSA Screen (12/23/2022 8:43 AM EDT) PSA Screen 4.37(H) 0.00 - 4.00 ng/mL [facility] Comment: PLEASE NOTE: The above [...] Artis APRN CHEMISTRY ORDERABLES Performing Organization Address City/State/[facility] Co de Phone Number [facility] [place] [address] documented in this encounter Visit Diagnoses Not on filedocumented in this encounter Care Teams Dude Ranch Manager Relationship Specialty Start Date End Date Yoel Artis APRN [address] [place] [address] PCP - General Internal Medicine 11/18/22 07/29/24 documented as of this encounter
--- OUTSIDE RECORDS SUMMARY | 2024-08-24 11:25 | XMS_ITS | Encounter Summary ---
[place] [address] Care Team Providers Care Lock Assembler Name Role Phone Anibal Mtz MD Primary Care Provider [phone] Encounter Details Date Type Department Care Team (Late st Contact Info) Description 01/18/2019 3:00 PM EDT Interpretation Only Cardiology at [address] [phone] Alberto Powell Jr., MD [address] [place] [address] Dizziness Social History Tobacco Use Types Packs/Day [...] 10:00 AM EST Office Visit Cardiology at [address] [address] Mushtaq Murphy APRN documented as of this [...] giddiness documented in this encounter Care Teams Lock Assembler Relationship Specialty Start Date End Date Anibal Mtz MD [address] [place] [address] PCP - General Family Medicine 01/17/19 11/17/22 documented as of this encounter
--- OUTSIDE RECORDS SUMMARY | 2024-08-24 11:25 | XMS_ITS | Encounter Summary ---
Author Organization [facility] [place] [address] Care Team Providers Care Energy Specialist Name Role Phone Yoel Artis APRN Primary Care Provider [phone] Reason for Referral * Consultation (Routine) - Closed Specialty Diagnoses / Procedures Referred By Theodore muro Referred To Contact Gastroenterology Diagnoses Anal spasm anal spasm Yoel Artis APRN [address] [place] [address] [facility] [address] [place] [address] Referral ID Status Reason Start Date Expiration Date V isits Requested Visits Authorized [id number] Closed Consult, Test & Treat PCP Updated and/or Approved 05/26/2023 05/25/2024 6 6 Encounter Details Date Type Department Care Team (Late st Contact Info) Description 05/26/2023 Transcribe Orders eDH Incoming Referrals [phone] Yoel Artis APRN [address] [place] [address] Anal spasm Social History Tobacco [...] 10:00 AM EST Office Visit Cardiology at [address] [address] Mushtaq Murphy APRN Scheduled Referrals Name Type Priority Associated Diagnoses Order Schedule Referral to Gastroenterology Outpatient Referral Routine Anal spasm Ordered: 05/26/2023 documented as of this encounter Visit Diagnoses Diagnosis Anal spasm documented in this encounter Care Teams Energy Specialist Relationship Specialty Start Date End Date Yoel Artis APRN [address] [place] [address] PCP - General Internal Medicine 11/18/22 07/29/24 documented as of this encounter
--- OUTSIDE RECORDS SUMMARY | 2024-08-24 11:25 | XMS_ITS | Encounter Summary ---
[place] [address] Care Team Providers Care Slack Line Yarder Name Role Phone Yoel Artis Ute ALCALA Primary Care Provider [phone] Encounter Details Date Type Department Care Team (Late st Contact Info) Description 08/26/2023 Tele[place] [phone] Madelyn Vasquez Social History Tobacco Use Types [...] - 08/26/2023 9:23 AM EST Korey Montoya [id number] Diagnosis/Indication: Rectal pain, fecal smearing Please review [...] ever had a/an Colonoscopy before? Yes: Date aatifm9rzi ago [facility] If yes, did you have any [...] procedure? No You must have a responsible constitution party who will drive you to your procedure, stay on campus for the entire duration of your procedure, and drive you home from your procedure. Who will likely be your seasonal driver for the procedure? Please Verify the [...] AM EST Office Visit Cardiology at [address] [address] Mushtaq Murphy APRN documented as of this encounter Visit Diagnoses Not on filedocumented in this encounter Care Teams Slack Line Yarder Relationship Specialty Start Date End Date Yoel Artis APRN [address] [place] [address] PCP - General Internal Medicine 11/18/22 07/29/24 documented as of this encounter
--- OUTSIDE RECORDS SUMMARY | 2024-08-24 11:25 | XMS_ITS | Encounter Summary ---
Author Organization [facility] [place] [address] Care Team Providers Care Pet Handler Name Role Phone Anibal Mtz MD Primary Care Provider [phone] Encounter Details Date Type Department Care Team (Late st Contact Info) Description 11/08/2022 Interpretation Only [address] [phone] Eve Frsot MD [address] [place] [address] Social History Tobacco Use Types Packs/Day Years [...] AM EST Office Visit Cardiology at [address] [address] Mushtaq Murphy APRN documented as of this encounter Procedures Procedure Name Priority Date/Time Associated Diagnosis Comments XR CHEST PA AND LATERAL STAT 11/08/2022 10:34 AM EST documented in this encounter Results * XR Chest PA & Lateral (Generic) (11/08/2022 10:34 AM EST) PT CLASS E RAD ADMITDTTM RAD PT RAD INFO [id number]^C HANDER^SUNEE R RAD EXAM DESC XCXR2^XR CHEST [...] technologist that requested your imaging first. ? Electronically signed by: Alejandro Tenorio MD, [facility] ([phone]), at 11/08/2022 10:37 AM Narrative 11/08/2022 10:37 [...] care technologist that requested your imaging first. Eve Frost MD IMG DX ORDERABLES documented in this encounter Visit Diagnoses Not on filedocumented in this encounter Care Teams Pet Handler Relationship Specialty Start Date End Date Anibal Mtz MD [address] [place] [address] PCP - General Family Medicine 01/17/19 11/17/22 documented as of this encounter
--- OUTSIDE RECORDS SUMMARY | 2024-08-24 11:25 | XMS_ITS | Encounter Summary ---
Author Organization [facility] Address [facility] [place] [address] Care Team Providers Care Patrol Judge Name Role Phone Unknown Primary Care Provider Unavailabl e Encounter Details Date Type Department Care Team (Late st Contact Info) Description 01/13/2019 9:05 PM EDT Ancillary Procedure Radiology Library at [facility] [place] [phone] Sunny Aviles MD [facility] [place] [place] [address] Social History Tobacco Use Types Packs/Day Years [...] 10:00 AM EST Office Visit Cardiology at [address] [place] [address] Mushtaq Murphy, ACCOUNT SERVICES REPRESENTATIVE documented as of this encounter Procedures Procedure [...] Aviles MD IMG FILM LIBRARY ORDERABLES [place], [place] documented in this encounter Visit Diagnoses Not on filedocumented in this encounter Care Teams Patrol Judge Relationship Specialty Start Date End Date Unknown None PCP - General 08/04/10 01/16/19 documented as of this encounter
--- OUTSIDE RECORDS SUMMARY | 2024-08-24 11:25 | XMS_ITS | Encounter Summary ---
Author Organization [facility] [place] [address] Care Team Providers Care Metal Dresser Name Role Phone Unknown Primary Care Provider Unavailabl e Encounter Details Date Type Department Care Team (Late st Contact Info) Description 12/03/2018 Interpretation Only [address] [phone] Ac Albrecht PA [address] [place] [address] [place] [address] Social History Tobacco Use Types Packs/Day Years [...] AM EST Office Visit Cardiology at [address] [address] Mushtaq Murphy APRN documented as of this [...] report, please contact the number below. ? Electronically signed by: Darvin Noyola [facility] ([phone]), at 12/03/2018 1:33 PM Narrative 12/03/2018 1:38 PM EDT EXAMINATION: XR [...] this report, please contact the number below. Electronically signed by: Darvin Noyola [facility]([phone]), at 12/03/2018 1:33 PM Ac SERRANO IMG DX ORDERABLES documented in this encounter Visit Diagnoses Not on filedocumented in this encounter Care Teams Metal Dresser Relationship Specialty Start Date End Date Unknown None PCP - General 08/04/10 01/16/19 documented as of this encounter
--- OUTSIDE RECORDS SUMMARY | 2024-08-24 11:25 | XMS_ITS | Encounter Summary ---
Author Organization [facility] [place] [address] Care Team Providers Care Furnace Cleaner Name Role Phone Yoel Artis APRN Primary Care Provider Reason for Referral * Consultation (Routine) - Closed Specialty Diagnoses / Procedures Referred By Theodore muro Referred To Contact Gastroenterology Diagnoses Proctalgia fugax Fecal smearing Constipation, unspecified constipation type group Yoel Dangelo APRN [facility] [place] [address] Paulette Glynn, PhD [facility] [place] [address] Referral ID Status Reason Start Date Expiration Date V isits Requested Visits Authorized [id number] Closed Consult, Test & Treat 06/01/2023 05/31/2024 1 1 Reason for Visit * Consultation (Routine) - Closed Specialty Diagnoses / Procedures Referred By Theodore muro Referred To Contact Gastroenterology Diagnoses Anal spasm motility- anal spasms Yoel Artis APRN [address] [place] [address] [facility] [place] [address] Referral ID Status Reason Start Date Expiration Date V isits Requested Visits Authorized [id number] Closed Consult, Test & Treat PCP Updated and/or Approved 11/18/2022 11/18/2023 6 6 Encounter Details Date Type Department Care Team (Latest Contact Info) Description 06/01/2023 8:00 AM EDT TH Visit (TeleHealth) [place] [address] Yoel Dangelo, RECREATION ACTIVITIES COORDINATOR [facility] [place] [address] Proctalgia fugax; Fecal smearing; Constipation, unspecified constipation [...] hear from us within 1 week: Clinic [phone] Motility Lab scheduling [phone] Endoscopy scheduling- [phone] Diagnostics: -Colonoscopy for rectal pain -Anorectal manometry [...] connection and our services, please visit the [facility] Behavioral health website at: [email or web address]. Our hope is that through these classes, [...] please contact your insurance company or the [facility] billing office ([email or web address]). Your insurance company may request a CPT code if you ask about coverage. [place] [address]. If you're interested in attending any of these classes or workshops, please reach out to our scheduling team via [facility] or phone ([phone]). You should start a fiber supplement if [...] Handout for Patients and Primary Care Providers [facility] Gastrointestinal Motility, Esophageal, and Swallowing Disorders Center What are functional bowel disorders? These are the most common type of gastrointestinal disorders in the [place] The most common functional bowel disorder in the [place] is irritable bowel syndrome (IBS) Irritable bowel [...] what is the impact? 15-20% of general [place] population has IBS or FD or both 2nd most common cause for lost work days (after common cold) in [place] Estimated $30 billion dollar cost to [place] economy per year These disorders can have [...] with immediate onset of symptoms after infection); fdc symptoms are expected in most patients however [...] to you primary care provider and/or local set o type operator and share this document. Treatment of functional [...] - this approach benefits most patients OTC (fann-ucp-dmrnkhg) medications can be used for ongoing bothersome symptoms as listed below Your provider (PCP or local Gastroenterology provider or [facility] Gastroenterology provider) may decide to use [...] All-Bran psyllium buds, Metamucil, Konsyl, bulk psyllium ([employer] stores and [employer] stores) Specifically we recommend starting Metamucil or [...] but convincing medical evidence is still lacking Zqzv-qyu-aidumqm supplements including probiotics are not typically evaluated [...] to decrease antibiotic-associated diarrhea and antibiotic-related infections Uyur-mgg-Yurcxcp Medications for Functional Gut Disorders Based on [...] a stool softener that is safe for ocean transportation intermediary usage (no risk of dependency) andthe dosage [...] (GERD) Often a combination of anti-nausea medications (mzkq-nvy-vakbcxj or prescription) works better thanhigh doses of [...] for misuse/misinterpretation of this information Patient Resources [place] [employer] https://www.gastro.org/practice-guidance/ou-zuxzshd-vgdqco/ topic/ygjutqyju-srnkt-svpzbrnn-ibs Badgut.org https://badgut.org/information-centre/x-o-hpttmewsi-topics/ibs/ AboutIBS.org https://www.aboutibs.org/ Uptodate.com https://www.uptodate.com/contents/ensctehep-agfmb-uyazzlpj-fynqeu-lfw-wowuce documented in this encounter Progress Notes * [...] Denies weight loss Last colo 2017 at [facility] with no polyps. Current Regimen: Metamucil [...] recommendations above. The patient was located in [place] at the time of their visit. TIME SPENT WITH PATIENT Time spent reviewing records prior to this encounter on day of appointment: 2 minutes Time spent during encounter with patient including counselin minutes Time spent documenting encounter after office visit: 7 minutes Yoel Dangelo [place] [facility] [place] [address] documented in this encounter Plan of Treatment Upcoming Encounters Date Type Department Care Team (Late st Contact Info) Description 10/01/2024 10:00 AM EST Office Visit Cardiology at [address] [place] [address] Mushtaq Murphy APRN Scheduled Orders Name Type [...] type documented in this encounter Care Teams Furnace Cleaner Relationship Specialty Start Date End Date Yoel Artis APRN [address] [place] [address] PCP - General Internal Medicine 11/18/22 07/29/24 documented as of this encounter
--- OUTSIDE RECORDS SUMMARY | 2024-08-24 11:25 | XMS_ITS | Encounter Summary ---
Author Organization [facility] Address [facility] [place] [address] Care Team Providers Care Supervisor Customer Records Division Name Role Phone Yoel Artis Ute ALCALA Primary Care Provider [phone] Reason for Visit * Auth/Cert (Routine) Specialty Diagnoses / Procedures Referred By Conteleazar t Referred To Contact Diagnoses Anal spasm Fecal smearing Constipation, unspecified Rectal pain, fecal smearing Procedures PRO COLONOSCOPY, DIAGNOSTIC PRO COLONOSCOPY, BIOPSY PRO COLONOSCOPY, REMV LESN, SNARE COLONOSCOPY, DIAGNOSTIC (WRVU 3.26) Brandan Mcgovern MD [facility] [place] [address] [facility] Referral ID Status Reason Start Date Expiration Date Visits Re quested Visits Authorized [id number] 1 1 Encounter Details Date Type Department Care Team (Latest Contact Info) Description 08/30/2023 10:09 AM EST - 08/30/2023 12:19 PM EST Hospital Encounter [place] [address] Brandan Mcgovern MD [facility] [place] [place] [address] Discharge Disposition: Home Social History Tobacco Use [...] occurs, please contact your Doctor. Please call [phone] before 8pm Mon-Fri with problems, questions or concerns. If you call after 8pm or on weekends, call the Hospital at [phone] and ask to speak to the Journalism Internship management consulting and the cupola operator insulation will contact that person for you. When should you call for help? Call 546 anytime you think you may need emergency [...] any problems. Where can you learn more? [facility] View your After Visit Summary and more online at [email or web address] If you would like to provide feedback about your hospital experience, please call the Office of Patient and Family Relations at . If you have received this After Visit Summary in error, please immediately return it in person to the department, or notify the [facility] Privacy Office by calling toll free at between the hours of 8AM and 5PM to arrange for our retrieval of the documents at no cost to you. Content Version: 12.2 ?? [id number] [employer]. Care instructions adapted under license by [facility]. If you have questions about a medical condition or this instruction, always ask your healthcare professional. [employer] disclaims any warranty or liability for your [...] evening. 04/17/2023 08/04/2024 nitroGLYcerin (NITROLINGUAL) 400 mcg/spray Campbell, Non-AerosolIndications:P roctalgia fugax,Fecal smearing,Constipation, unspecified constipation type [...] AM EST Office Visit Cardiology at [address] [address] Mushtaq Murphy, FREDRICK documented as of this encounter Procedures Procedure Name Priority Date/Time Associated Diagnosis Comments SPECIMEN TO PATHOLOGY Routine 08/30/2023 11:23 AM EST SURGICAL PATHOLOGY REPORT Routine 08/30/2023 11:21 AM EST COLONOSCOPY Routine 08/30/2023 10:57 AM EST Colonoscopy, Remv Lesn, Snare ([id number]) 08/30/2023 10:44 AM EST Proctalgia fugax Fecal smearing Constipation, unspecified constipation type documented in this encounter Results * Specimen to Pathology (08/30/2023 11:23 AM EST) AP Specimen 08/30/2023 11:2 3 AM EST 08/30/2023 11:23 AM EST Narrative [facility] - 08/30/2023 11:23 AM EST Specimen requisition ordered. ??Separate Pathology report to follow Brandan Mcgovern MD PATHOLOGY/CYTOLOGY O JOSH Performing Organization Address [facility]/ZIP Co de Phone Number [facility] [place] [phone] * Surgical Pathology Report (08/30/2023 11:21 AM EST) Final Diagnosis [id number] ? Location: 4T; EA12; A The signing pathologist has (i) examined the relevant preparation(s) for the specimen(s) and (ii) rendered or confirmed the diagnosis(es). . ?Surgical Pathology DIAGNOSIS A - Sigmoid colon polyp, resection (Multiple): - ??Tubular adenoma. CR-PX Electronically signed by: ?Blake ORTEGA PhD, Yulia Verified: ??09/08/2023 14:48 ??Pathologist Performed at: ??-[facility] Dept. of Pathology, [place] [address] Chemical Technician: Fercho Chan MD, FCAP, ??CLIA Certificate: [id number] SPECIMEN(S) SUBMITTED A - Sigmoid colon polyp, resection (Multiple) CLINICAL INFORMATION 73-year-old male, history of rectal pain SPECIMEN PROCESSING A - Labeled/Fixativ e: Sigmoid colon polyp, formalin. Quantity/Size: Single, 0.8 cm. Tissue Description: Soft, candelaria tissue. Sections/Proces sing: Submitted in toto ??in 1 cassette labeled A1. ??sdy 09/08/2023 2:48 PM EST [facility] GI Biopsy 08/30/2023 11:2 1 AM EST 08/30/2023 11:21 AM EST Brandan Mcgovern MD PATHOLOGY/CYTOLOGY O JOSH Performing Organization Address City/[facility]/ZIP Co de Phone Number [facility] [place] [address] [facility] [place] [address] * COLONOSCOPY (08/30/2023 10:57 AM EST) COLONOSCOPY [facility] Procedure Date: 08/30/2023 10:57 AM ? Patient Name: Korey Montoya ? Date of : 1950 ? Age: 73 ? Order #: [id number] ? Instrument Name: [id number] ? Procedure: ? Colonoscopy Indications: ? Rectal [...] preparation was evaluated ? using the BBPS (Smart Pipe Bowel ? Preparation Scale) with scores of: [...] documented in this encounter Care Teams Supervisor Customer Records Division Relationship Specialty Start Date End Date Yoel Artis APRN [address] [place] [id number] PCP - General Internal Medicine 11/18/22 07/29/24 documented as of this encounter
--- OUTSIDE RECORDS SUMMARY | 2024-08-27 10:09 | XMS_ITS | Clinical Summary ---
Author Organization [facility] Address [facility] [place] [address] Care Team Providers Care Piano Technician Name Role Phone Alexia Mtz NOCTURNIST Primary Care Provider [phone] Allergies No known active allergies Medications Medication [...] Description 07/31/2024 4:45 PM EST Anesthesia Event [place] [address] Venkatesh Mauricio MD 07/31/2024 4:30 PM EST - 07/31/2024 5:30 PM EST Surgery [place] [address] Maldonado Luis MD CARDIAC CATHETERIZATION 07/29/2024 6:32 PM EST - 07/29/2024 11:59 PM EST Hospital Encounter [facility] at [address] [phone] Arvin Becerra MD Discharge Disposition: Home 07/29/2024 12:00 PM EST - 07/29/2024 12:54 PM EST Surgery [place] [address] Vahe Marvin MD CARDIAC CATHETERIZATION 07/29/2024 11:45 AM EST - 08/04/2024 5:00 PM EST Hospital [place] [address] Vahe Marvin MD Dadekian, Gregory A, MD Welch, Terrence D, MD Vinod, Poornima, MD Kostojchin, Anastas, MD Kussaga, Frank M, MD ST elevation myocardial infarction involving left anterior descending (LAD) coronary artery; HFrEF (heart failure with reduced ejection fraction) Discharge Disposition: Home 07/29/2024 Orders Only [place] [address] Susannah Watts PA 07/29/2024 Interpretation Only [address] [address] Deondre Ferrera MD 07/29/2024 [place] [address] Ivan Hernandez MD 07/29/2024 External Results [place] [address] 07/28/2024 Interpretation Only [address] [address] Quinten Coffey MD 06/25/2024 [place] [address] Aubrey Cali MD Pyuria from [...] drink = 0.6 oz pur e alcohol) [facility] Utilities Answer Date Recorded In the past 12 months has th e [employer], gas, oil, or water [facility] threatened to shut off services in your [...] were you homeless or living in a mcfp (including now)? No 07/30/2024 [facility] Inpatient Questions Answer Date Recorded Does Anyone [...] 10:00 AM EST Office Visit Cardiology at [address] [phone] Mushtaq Murphy, FREDRICK Health Maintenance Due Date [...] MD HEMATOLOGY ORDERABLE S Performing Organization Address City/[facility]/ZIP Co de Phone Number [facility] [place] [address] * Magnesium (08/04/2024 6:08 AM EST) Only the most recent of8 resultswithin the time period is included. Magnesium 0.85 0.69 - 1.07 mMol/L 08/04/2024 7:07 AM [facility] Blood VENOUS BLOOD SPECIMEN / Unknown Venipuncture / Unknown 08/04/2024 6:08 AM EST 08/04/2024 6:19 AM EST Bridgette Stauffer MD CHEMISTRY ORDERABLES Performing Organization Address [facility] Co de Phone Number [facility] [place] [address] * Basic Metabolic Panel (08/04/2024 6:08 AM [...] Stauffer MD CHEMISTRY ORDERABLES Performing Organization Address City/[facility]/ZIP Co de Phone Number [facility] [place] [address] * POC, GLUCOSE (08/02/2024 7:47 AM EST) Only the most recent of16 resultswithin the time period is included. [facility] Signature Glucometer, POC 89 65 - 199 mg/dL 08/02/2024 7:47 AM EST [facility] Comment:Supplemental ranges: <140 mg/dL before meals <180 mg/dL all other times of the day. Blood CAPILLARY BLOOD / Unknown 08/02/2024 7:47 AM EST 08/02/2024 7:47 AM EST Arnel Parker MD POINT OF CARE TEST O RDERABLES Performing Organization Address City/[facility]/ZIP Co de Phone Number [facility] [place] [address] * Scan Doc: Telemetry Strips (08/02/2024 7:37 AM EST) Only the most recent of3 resultswithin the time period is included. Narrative 08/02/2024 7:37 AM EST Ordered by an unspecified provider. Scanning Provider MEDIA MGR SCAN EXT O RDR/RSLT * Potassium (08/01/2024 8:39 PM EST) Only the most recent of4 resultswithin the time period is included. Pathologist [facility] Potassium 4.0 3.5 - 5.0 mMol/L 08/01/2024 9:21 PM EST [facility] Blood VENOUS BLOOD SPECIMEN / Unknown Venipuncture / Unknown 08/01/2024 8:39 PM EST 08/01/2024 8:51 PM EST Jay Silverio MD CHEMISTRY ORDERABL ES [facility] [place] [address] * (ABNORMAL) Cooximetry, POC (08/01/2024 10:45 AM [...] CARE TEST O RDERABLES Performing Organization Address [facility]/State/[facility] Co de Phone Number [facility] [place] [address] * CARDIAC CATHETERIZATION (07/31/2024 5:53 PM EST) Only the most recent of2 resultswithin the time period is included. Anatomical Region Laterality Modality Other Narrative 08/01/2024 12:37 PM EST ?[facility] ? Cardiac Catheterization/Intervention Report ? Patient Name: MontoyaKorey. ? Procedure Date: 07/31/2024 ? A #: [id number] ? Primary Physician: Janelle, Maldonado Muro ? Case #: [id number] ? File Name: [id number] ? Catheterization Order Number: [id number] ? [facility] ? Final Report [place], [place] ? Patient Name: ? Korey Montoya ?ID#: ?[id number] ? : ?1950 ? Procedure Date: ? [...] ? Comments: ?Impella removed from the right HAT DESIGNER with deployment of Perclose and ?Angioseal. ??Good [...] Procedure Note Maldonado Luis MD - 08/01/2024 [facility] Cardiac Catheterization/Intervention Report Patient Name: Korey Montoya Procedure Date: 07/31/2024 A #: [id number] Primary Physician: Maldonado Luis Case #: [id number] File Name: [id number] Catheterization Order Number: [id number] [facility] FinalReport [place], [place] Patient Name: Korey Montoya ID#:[id number] :1950 Procedure Date: July 31, 2024 Case [...] was designated as ASA Class IV. The [facility] clinical frailtyscale is 4: Vulnerable. Diagnostic [...] procedures. Comments: Impella removed from the right HAT DESIGNER with deployment of Perclose and Angioseal. Good [...] 7.48(H) 7.35 - 7.45 07/31/2024 8:30 AM [facility] PCO2, Arterial 29(L) 35 - 45 mmHg 07/31/2024 8:30 AM [facility] PO2, Arterial 71(L) 85 - 104 mmHg 07/31/2024 8:30 AM [facility] Bicarbonate, Arterial 20.6 20.0 - 26.0 mmol/L 07/31/2024 8:30 AM [facility] Base Excess, Arterial -3.0 -3.0 [...] CARE TEST O RDERABLES [facility] [place] [address] * (ABNORMAL) Hepatic Function Panel (07/31/2024 1:08 [...] Parker MD CHEMISTRY ORDERABLES Performing Organization Address City/[facility]/ZIP Co de Phone Number [facility] [place] [address] * (ABNORMAL) Phosphorus (07/30/2024 3:08 PM EST) Only the most recent of3 resultswithin the time period is included. Phosphorus 2.1(L) 2.5 - 4.5 mg/dL 07/30/2024 3:58 PM EST [facility] Blood VENOUS BLOOD SPECIMEN / Unknown Venipuncture / Unknown 07/30/2024 3:08 PM EST 07/30/2024 3:12 PM EST Jay Silverio MD CHEMISTRY ORDERABL ES Performing Organization Address City/[facility]/ZIP Co de Phone Number [facility] [place] [address] * ECHO LMTD W CONTRAST W LMTD SPEC DOPP COLOR DOPP (07/30/2024 11:42 AM EST) Anatomical Region Laterality Modality Cardiac Other 07/30/2024 10:2 2 AM EST Narrative 07/30/2024 12:34 PM EST [address] [place] [address] ? Echocardiogram Report Name: KOREY MONTOYA ? Study Date: 07/30/2024 10:22 AMBP: 124/66 mmHg : 1950 ? Height: 168 cm ? Account: [id number] Age: 74 yrs ? Weight: 65 kg Gender: Male ?BSA: 1.7 m2 Ordering Physician: Jay Silverio MD Referring Physician: DEONDRE FERRERA Performed By: OMERO Millan Reason For Study: ST elevation myocardial infarction involving left anterior descending (LAD) coronary artery Interpreting Fellow: Ivan Hernandez. Exam Location: [facility]. Interpretation Summary Left ventricle is [...] Compared to the overnight study by the occasional babysitter fellow the impella position is stable. 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 Procedure Limited - 94330. Image enhancement Definity was used for both [...] Note Kathleen Banda MD - 07/30/2024 [address] [place] [address] Echocardiogram Report Name: KOREY MONTOYA Study Date: 410:22 AMBP: 124/66 mmHg : 1950 Height: 168 cm Account: [id number] Age: 74 yrs Weight: 65 kg Gender: Male BSA: 1.7 m2 Ordering Physician: Jay Silverio MD Referring Physician: DEONDRE FERRERA Performed By: OMERO Millan Reason For Study: ST elevation myocardial infarction involving leftanterior descending (LAD) coronary artery Interpreting Fellow: Ivan Hernandez. Exam Location: [facility]. Interpretation Summary Left ventricle is [...] Compared to the overnight study by the occasional babysitter fellow the impella positionis stable. The global left ventricular systolic function has improvedpredominantly via recruitment outside the LAD territory which remains akinetic. Procedure Limited - 23481. Image enhancement Definity was used for both [...] troponin value can be found in the [facility] Test Catalog Troponin - [email or web address]/[email or web address] Reference: Fourth Stewart Definition of Myocardial Infarction. Journal of the [place] [employer] 2018;72:4070-8294 Blood VENOUS BLOOD SPECIMEN / Unknown Venipuncture / Unknown 07/30/2024 8:09 AM EST 07/30/2024 8:26 AM EST Jay Silverio MD CHEMISTRY ORDERABL ES Performing Organization Address City/State/[facility] Co de Phone Number [facility] [place] [address] * Echocardiogram Transthoracic (07/30/2024 1:41 AM EST) Anatomical Region Laterality Modality Cardiac Other 07/30/2024 1:41 AM EST Narrative 07/30/2024 8:23 AM EST [address] [place] [address] ? Echocardiogram Report Name: KOREY MONTOYA ? Study Date: 07/30/2024 01:41 AM : 1950 ? Height: 168 cm Age: 74 yrs ? Weight: 5.9 kg Gender: Male ?BSA: 0.63 m2 Performed By: Beatris Ching MD Reason For Study: STEMI, VT History: ASCVD, HTN, HLD Interpreting Fellow: Beatris Ching. Interpretation Summary This is a limited study performed by a fellow occasional babysitter to evaluate for cardiogenic shock with impella [...] study available for comparison. Procedure Limited - 27006. Suboptimal quality. There is sinus bradycardia. Left [...] Note Kathleen Banda MD - 07/30/[address] [place] [address] Echocardiogram Report Name: KOREY MONTOYA Study Date: 07/30/2024 01:41AM : 1950 Height: 168 cm Age: 74 yrs Weight: 5.9 kg Gender: Male BSA: 0.63 m2 Performed By: Beatris Ching MD Reason For Study: STEMI, VT History: ASCVD, HTN, HLD Interpreting Fellow: Beatris Ching. Interpretation Summary This is a limited study performed by a fellow occasional babysitter to evaluate forcardiogenic shock with impella in. [...] study available for comparison. Procedure Limited - 43611. Suboptimal quality. There is sinus bradycardia. Left [...] * ABORH RECHECK (07/29/2024 6:43 PM EST) [facility] ABORH Recheck AB POSITIVE 07/29/2024 10:13 PM EST [facility] Blood VENOUS BLOOD SPECIMEN / Unknown Venipuncture / Unknown 07/29/2024 6:43 PM EST 07/29/2024 7:15 PM EST Jay Silverio MD BLOOD BANK LAB ORD ERABLES Performing Organization Address City/[facility]/ZIP Co de Phone Number [facility] [place] [address] * Type and screen ([facility]JONG/MAGALIE) (07/29/2024 5:56 PM EST) [facility] ABORH Type AB POSITIVE 07/29/2024 9:44 PM EST [facility] PATIENT HISTORY Not Found 07/29/2024 9:44 PM EST [facility] Expires at [id number] on: 08/01/2024 07/29/2024 9:44 PM EST [facility] ANTIBODY SCREEN AUTOMATED Negative 07/29/2024 9:44 PM EST [facility] T&S only valid at [facility] 07/29/2024 9:44 PM EST [facility] Blood VENOUS BLOOD SPECIMEN / Unknown Venipuncture / Unknown 07/29/2024 5:56 PM EST 07/29/2024 6:07 PM EST Narrative [facility] - 07/29/2024 9:44 PM EST This Type and Screen result is only valid at the [facility] Jay Silverio MD BLOOD BANK LAB ORD ERABLES Performing Organization Address City/[facility]/ZIP Co de Phone Number [facility] [place] [address] * EKG 12 Lead (07/29/2024 4:21 PM EST) Only the most recent of2 resultswithin the time period is included. Pathologist [facility] Ventricular rate 72 BPM MUSE SYSTEM Atrial Rate 72 BPM MUSE SYSTEM P-R Interval 168 ms MUSE SYSTEM QRS Duration 82 ms MUSE SYSTEM Q-T Interval 392 ms MUSE SYSTEM QTC Calculated (Bezet) 429 ms MUSE SYSTEM Calculated P [place] 71 degrees MUSE SYSTEM Calculated R [place] 77 degrees MUSE SYSTEM Calculated T [place] 28 degrees MUSE SYSTEM INTERPRETATION Sinus rhythm with Premature supraventricular complexes and Occasional Premature ventricular complexes Low voltage QRS 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) Lateral injury pattern ACUTE VA / STEMI Abnormal ECG When compared with ECG of 29-JUL-2024 13:43, (unconfirmed) Serial changes of evolving Anteroseptal infarct Present Confirmed by MD Marcus, Roverto (1963) on 07/31/2024 5:30:06 AM MUSE SYSTEM 07/29/2024 4:21 PM EST 07/31/2024 5:30 AM EST Jay Silverio MD ECG ORDERABLES Performing Organization Address City/[facility]/ZIP Co de Phone Number MUSE SYSTEM * Blood culture (07/29/2024 4:08 PM EST) Only the most recent of2 resultswithin the time period is included. Blood Culture No growth at 120 hours 08/03/2024 5:01 PM EST [facility] Blood VENOUS BLOOD SPECIMEN / Unknown Venipuncture / Unknown 07/29/2024 4:08 PM EST 07/29/2024 4:15 PM EST Jya Silverio MD MICROBIOLOGY - BLO OD ORDERABLES Performing Organization Address City/[facility] Co de Phone Number [facility] [place] [address] * XR Chest One View (07/29/2024 2:30 PM EST) Only the most recent of3 resultswithin the time period is included. WORKSTATION ID [id number] DH RAD Anatomical Region Laterality Modality Chest [...] who have questions please contact the health chronic care nurse that requested your imaging first. ? Electronically signed by: Chris Candelaria MD, [facility] ([phone]), at 07/29/2024 3:21 PM Narrative 07/29/2024 3:21 [...] patients who have questions please contactthe health chronic care nurse that requested your imaging first. Electronically signed by: Chris Candelaria MD, [facility]([phone]), at 07/29/2024 3:21 PM Vahe Marvin MD IMG DX ORDERABLES * TSH [place] (07/29/2024 2:03 PM EST) Thyroid Stimulating Hormone 0.70 0.27 - 4.20 mcIU/mL 07/29/2024 2:52 PM EST [facility] Blood VENOUS BLOOD SPECIMEN / Unknown Venipuncture / Unknown 07/29/2024 2:03 PM EST 07/29/2024 2:14 PM EST Vahe Marvin MD CHEMISTRY ORDERABLES [facility] [place] [address] * CRP, acute inflammation (07/29/2024 2:03 PM EST) C-Reactive Protein <3.0 <=4.9 mg/L 07/29/2024 2:52 PM EST [facility] Blood VENOUS BLOOD SPECIMEN / Unknown Venipuncture / Unknown 07/29/2024 2:03 PM EST 07/29/2024 2:14 PM EST Vahe Marvin MD CHEMISTRY ORDERABLES Performing Organization Address City/[facility]/ZIP Co de Phone Number [facility] [place] [address] * (ABNORMAL) APTT (07/29/2024 2:03 PM EST) Partial Thromboplastin Time >160(HHH) 25 - 37 sec 07/29/2024 2:56 PM EST [facility] Blood VENOUS BLOOD SPECIMEN / Unknown Venipuncture / Unknown 07/29/2024 2:03 PM EST 07/29/2024 2:13 PM EST Vahe Marvin MD HEMATOLOGY ORDERABLE S [facility] [place] [address] * (ABNORMAL) Prothrombin Time (07/29/2024 2:03 PM EST) Pathologist [facility] Prothrombin Time 14.2(H) 9.4 - 12.5 sec [...] MD HEMATOLOGY ORDERABLE S [facility] [place] [address] * Hemoglobin A1c (07/29/2024 2:03 PM EST) [facility] Hemoglobin A1c 5.3 4.3 - 5.6 % [...] red blood cell turnover may not be admitting representative of glycemic control. Reference Interval: 4.3 - 5.6% 5.7 - 6.4%: Consistent with prediabetes >=6.5%: Consistent with diagnosis of diabetes mellitus Estimated Average Glucose 07/29/2024 2:41 PM EST [facility] Comment:Estimated Average Gl ucose not appropriate for patients over 70 years of age. Blood VENOUS BLOOD SPECIMEN / Unknown Venipuncture / Unknown 07/29/2024 2:03 PM EST 07/29/2024 2:14 PM EST [facility] - 07/29/2024 2:41 PM EST Estimated average glucose (eAG) is calculated from the equation described in: Quinten DM, Rikki J, Reno R, et al. ??Translating the A1C assay into estimated average glucose values. ??Diabetes Care 2008:31(8):4571-0861. Additional resources are available on the ADA website (diabetes.org). Vahe Mravin MD CHEMISTRY ORDERABLES [facility] [place] [address] * Lipid Panel (Reflex Direct LDL) (07/29/2024 2:03 PM EST) Pathologist [facility] Cholesterol, Total 133 mg/dL 07/29/2024 2:52 PM [facility] Comment: Desirable: < 200 mg/dL Borderline High: 200 - 239 mg/dL High: > or = 240 mg/dL Triglyceride 45 mg/dL 07/29/2024 2:52 PM [facility] Comment: Normal: <150 mg/dL Borderline High: 150-199 mg/dL High: 200-499 mg/dL Very High: > or =500 mg/dL HDL Cholesterol 58 mg/dL 4 2:52 PM [facility] Comment:Males: [...] 2:03 PM EST 07/29/2024 2:14 PM EST [facility] - 07/29/2024 2:52 PM EST [...] ACC/AHA Guidelines (most recently Rolf et al. [facility] 06/15/22): * For individuals with atherosclerotic cardiovascular [...] Marvin MD CHEMISTRY ORDERABLES [facility] [place] [address] * (ABNORMAL) Comprehensive metabolic panel (07/29/2024 2:03 [...] 91 mL/min/1. 73 m?? 07/29/2024 3:11 PM [facility] Comment: This [...] Marvin MD CHEMISTRY ORDERABLES [facility] [place] [address] * (ABNORMAL) Blood Gas, Venous POC (07/29/2024 2:01 PM EST) pH, Venous 7.30(L) 7.32 - 7.42 07/29/2024 2:02 PM [facility] PCO2, Venous 42 38 - [...] Venous 0.3 <=1.5 % 07/29/2024 2:02 PM [facility] Sodium, Venous 137 135 - 145 mmol/L 07/29/2024 2:02 PM [facility] Potassium, Venous 3.6 3.5 - 5.0 mmol/L 07/29/2024 2:02 PM [facility] Chloride, Venous 103 98 - 107 mmol/L 07/29/2024 2:02 PM [facility] Glucose, Venous 229(H) 65 - 199 mg/dL 07/29/2024 2:02 PM [facility] Comment:Glucose Concentratio n >=200 mg/dL plus symptoms is consistent with Diabetes Mellitus. Lactate, Venous 3.1(H) 0.5 - 2.2 mmol/L 07/29/2024 2:02 PM [facility] Ionized Calcium, Venous 1.11(L) 1.15 - 1.33 mmol/L 07/29/2024 2:02 PM [facility] Blood VENOUS BLOOD SPECIMEN / Unknown 07/29/2024 2:01 PM EST 07/29/2024 2:02 PM EST Vahe Marvin MD POINT OF CARE TEST O RDERABLES [facility] [place] [address] * (ABNORMAL) BLOOD GAS, POC (07/29/2024 12:46 [...] CARE TEST O RDERABLES Performing Organization Address [facility]/[place] [address] * External Cardiology Result (07/29/2024 10:13 AM [...] - GENER AL ORDERABLES Performing Organization Address City/[facility]/ZIP Co de Phone Number [facility] [place] [address] * COLONOSCOPY (08/30/2023 10:57 AM EST) COLONOSCOPY [facility] Procedure Date: 08/30/2023 10:57 AM ? Patient Name: Korey Montoya ? Date of : 1950 ? Age: 73 ? Order #: [id number] ? Instrument Name: [id number] ? Procedure: ? Colonoscopy Indications: ? Rectal [...] preparation was evaluated ? using the BBPS ([place] Bowel ? Preparation Scale) with scores of: [...] 08/30/2023 10:5 7 AM EST Yoel Artis NOCTURNIST GENERAL SURGICAL ORD ERABLES PROVATION from Last 3 Months or Most Recently Relevant to Health Maintenance Advance Directives * Attempt Cardiopulmonary Resuscitation - Inpatient (Latest Code Status on File) Date Activated Date Inactivated Comments 07/29/2024 2:01 PM 08/04/2024 7:34 PM Question Answer Comments Code Status decision made by: Patient Content of discussion: pre-arrest limitations Care Teams Piano Technician Relationship Specialty Start Date End Date Alexia Mtz APRN [address] [place] [id number] PCP - General Family Medicine 07/30/24
--- OUTSIDE RECORDS SUMMARY | 2024-08-27 10:10 | XMS_ITS | Encounter Summary ---
[place] [address] Care Team Providers Care Ornamental Ironworker Helper Name Role Phone Alexia Mzt FREDRICK Primary Care Provider [phone] Reason for Visit * Auth/Cert (Routine) Specialty Diagnoses / Procedures Referred By Theodore muro Referred To Contact Diagnoses STEMI (ST elevation myocardial infarction) STEMI Procedures ER SUI Vahe Marvin MD [facility] [place] [address] [place] Referral ID Status Reason Start Date Expiration Date Visits Re quested Visits Authorized [id number] 1 1 Encounter Details Date Type Department Care Team (Late st Contact Info) Description 07/31/2024 4:30 PM EST - 07/31/2024 5:30 PM EST [place] [id number] Maldonado Luis MD [facility] [place] [address] CARDIAC CATHETERIZATION Social History Tobacco Use Types Packs/Day Years Used Date Smoking Tobacco: Former Cigarettes Smokeless Tobacco: Never Alcohol Use Standard Drinks/Week Comments Not Currently 0 (1 standard drink = 0.6 oz pur e alcohol) [facility] Utilities Answer Date Recorded In the past 12 months has [employer] electric, gas, oil, or water company threatened [...] any time in the past 12 [facility], were you homeless or living in a prison (including now)? No 07/30/2024 IPV Inpatient Questions [...] Korey Montoya Patient Age: 74 y.o. Language: Burmese Race: White Ethnicity: Not nor Admit date: 07/29/2024 Discharge date and time: 08/04/2024 4:01 PM Attending Physician: Alex Small MD Discharge Physician: lAex Small MD Follow-up Recommendations for Providers: # [...] please contact your inpatient physician through the [facility] Heel Seater . Issues afterhours and on weekends will [...] EKG. Patient transferred via air ambulance to [facility] on 07/29 for LHC and LOW to [...] EKG. Was transferred via air ambulance to [facility] for further management and LHC demonstrated 100% [...] the next year. Access was via right COMMERCIAL LEASING AGENT and this sitewas clean, dry and intact [...] for Chest pain. Replaces: nitroGLYcerin 400 mcg/spray [place], Non-Aerosol 0.4 mg Quantity: 90 tablet Refills: [...] Refills: 0 STOPPED Medications nitroGLYcerin 400 mcg/spray [place], Non-Aerosol Commonly known as: NITROLINGUAL Replaced by: [...] of one year. After this time, your microsoft application developer will determine if you need to continue [...] away. Stay on the phone. The emergency set off press operator will tell you what to do. [...] appointments: During 8am-5pm Tuesday through Tuesday call [phone] to speak with a nurse in the cardiology clinic All other times call [phone] and ask to speak to the tin worker pest control supervisor. Follow up Appointments: PCP Alexia Mtz, CRIMINAL PSYCHOLOGIST [phone]. Please call to establish a follow up appointment within 1-2 weeks of discharge. Cardiology. Referral to heart failure has been sent. General Instructions None Future Appointments and Orders Future Orders Complete By Expires Referral to Cardiac Rehab [[id number] Custom] As directed Process Instructions: If no progress note charted, please enter Clinical details in comments. Scheduling Instructions: Questions: My question or request is: STEMI, PCI- cardiac rehab at [facility] Referral to Cardiology [REF12 Custom] [...] of one year. After this time, your microsoft application developer will determine if you need to continue [...] away. Stay on the phone. The emergency set off press operator will tell you what to do. [...] appointments: During 8am-5pm Tuesday through Tuesday call [phone] to speak with a nurse in the cardiology clinic All other times call [phone] and ask to speak to the tin worker pest control supervisor. Follow up Appointments: PCP Alexia Mtz, CRIMINAL PSYCHOLOGIST [phone]. Please call to establish a follow up [...] Psyllium Seed-Sucrose (0) Powder Take by mouth. aspirin EC 81 mg EC (DR) tablet [...] 60 days. 30 tablet 1 08/04/2024 10/03/2024 documented as of this encounter Progress Notes [...] EKG. Patient transferred via air ambulance to [facility] on 07/29 for LHC and LOW to LAD for 100% occlusion Social History: Pt lives with his in a 1 level home with 2 NAOMI. 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 He [...] Total time: 35 (tef) minutes Time IN/OUT: 8820-8640 ZAIDA DUBOSE PT Pager: [phone] Physical Therapy Inpatient Rehabilitation Department * Yrn Ward MD - 08/03/2024 10:38 AM EST CV HOSPITALIST 2 - [facility] DAILY PROGRESS NOTE Page [phone] to reach a provider 04/04 Admit Date: [...] or before 29-JUL-2024) Lateral injury pattern ACUTE [place] / STEMI Abnormal ECG When compared with [...] Compared to the overnight study by the pest control supervisor fellow the impella position is stable. 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 [facility] 07/29/24 Conclusions: * One vessel coronary artery disease (LAD) * Mild pulmonary hypertension * Elevated pulmonary capillary wedge pressure * Successful stent insertion of the proximal LAD lesion * See Dual Antiplatelet (DAPT) Recommendations above * Successful impella placement for cardiogenic shock. Telemetry: I have personally reviewed and interpreted the telemetry from the last [address] [facility] Assessment: ASSESSMENT: Korey Montoya is a 74 y.o. male w/ PMH of hypertension, HLD, and BPH who presents for chief concern of chest pain after being found to have ST elevations on EKG. Patient transferred via air ambulance to [facility] on 07/29 for LHC and LOW to [...] to be determined OT: PCP Alexia Mtz, CRIMINAL PSYCHOLOGIST [phone] * Zaida Dubose, PT - 08/02/2024 2:08 PM EST Physical Therapy Evaluation Patient profile: Korey Montoya is a 74 y.o. male w/ PMH of hypertension, HLD, and BPH who presents for chief concern of chest pain after being found to have ST elevations on EKG. Patient transferred via air ambulance to [facility] on 07/29 for LHC and LOW to LAD for 100% occlusion Social History: Pt lives with his in a 1 level home with 2 NAOMI. 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 He [...] Total time: 37 (eval) minutes Time IN/OUT: 0300-2084 ZAIDA DUBOSE, PT Pager: [phone] Physical Therapy Inpatient Rehabilitation Department * Gagan [...] EKG. Patient transferred via air ambulance to [facility] on 07/29 for LHC and LOW to LAD for 100% occlusion. TTE showed apical akinesis and inferior hypokinesis with EF 20%. RHC showed elevated filling pressures. Impella placed and P-level 6 at time of transfer to [facility]. CI initially 1.97, improved to 2.2 After [...] Name: Korey Montoya : 1950 PCP: Alexia tMz APRN PCP phone number: [phone] Date of Admission: 07/29/2024 ( Hospital Day 4 days ) Attending:Bridgette Stauffer MD ID: Korey Montoya is a 74 y.o. male w/ PMH of hypertension, HLD, and BPH on Hospital Day4 for chief concern of chest pain after being found to have ST elevations on EKG. Patient transferred via air ambulance to [facility] on 07/29 for LHC and LOW to [...] 07/29/24 1621 PHART 7.48* 7.44 7.38 7.37 [id number] 29* 29* 34* 36 PO2ART 71* 109* 141* 71* VNM6UWM 20.6 19.4* 19.5* 20.4 VBG (Venous Blood Gas) Recent Labs 07/29/24 1401 PHVEN 7.30* PO2VEN 39 FEO1ZRA 20.1* Mixed Venous Sat No results for input(s): T9MDMI7 in the last 168 hours. Objective: Vitals [...] 07/29/24 1621 PHART 7.48* 7.44 7.38 7.37 JWL0VZG 29* 29* 34* 36 PO2ART 71* 109* 141* 71* KYH7KHR 20.6 19.4* 19.5* 20.4 VBG (Venous Blood Gas) Recent Labs 07/29/24 1401 PHVEN 7.30* PO2VEN 39 GCH8FXN 20.1* Mixed Venous Sat No results for input(s): I4UDFV0 in the last 168 hours. Microbiology: Microbiology Results (Last 30 days) Procedure Component Value Units Date/Time Blood culture [[id number]] Collected: 07/29/241607 Lab Status: Preliminary result Specimen: Blood, Venous Updated: 08/01/241700 Blood Culture No growth at 72 hours Blood culture [[id number]] Collected: 07/29/241607 Lab Status: Preliminary result Specimen: Blood, Venous Updated: 08/01/241700 Blood Culture No growth at 72 hours Imaging: Results for orders placed or performed during the hospital encounter of 07/29/24 XR Chest One View (Exam End: 07/29/2024 2:30 PM) Result Value WORKSTATION ID [id number] Impression 1. No pulmonary edema. 2. No pleural effusion. 3. No pneumothorax. Thank you for letting us participate in the care of this patient. If you are a health care provider and have any questions regarding this report, please contact the number below. For patients who have questions please contact the health care coordination manager that requested your imaging first. Electronically signed by: Chris Candelaria MD, [facility] ([phone]), at 07/29/2024 3:21 PM TTE ( 07/30/24) [...] Compared to the overnight study by the pest control supervisor fellow the impella position is stable. The [...] OR dextrose OR glucagon Assessment & Plan: Koery Montoya is a 74 y.o. male w/ PMH of hypertension, HLD, and BPH on HD# 4 for chief concern of chest pain after being found to have ST elevations on EKG. Patient transferred via air ambulance to [facility] on 07/29 for LHC and LOW to [...] Susannah Ornelas MD Internal Medicine, PGY-1 Cardiology, [facility] 08/02/24 12:45 PM CARDIOLOGY STAFF NOTE I [...] today). Transfer to floor. Krystal Parker MD, [facility], [facility] Staff Data Reviewer guard chief * Gagan Catherine MD - 08/01/2024 11:12 [...] EKG. Patient transferred via air ambulance to [facility] on 07/29 for LHC and LOW to LAD for 100% occlusion. TTE showed apical akinesis and inferior hypokinesis with EF 20%. RHC showed elevated filling pressures. Impella placed and P-level 6 at time of transfer to [facility]. CI initially 1.97, improved to 2.2 After impella. Received about 3 L of fluid during procedural course. Patient initially required norepinephrine 30, epinephrine 10, and vasopressin 0.04 for hemodynamic support, which was weaned upon arrival to [facility] to norepinephrine 20and levo 0.04 N - [...] PCP: Alexia Mtz APRN PCP phone number: [phone] Date of Admission: 07/29/2024 ( Hospital Day 3 days ) Attending:Krystal Parker MD ID: Korey Montoya is a 74 y.o. male w/ PMH of hypertension, HLD, and BPH on Hospital Day3 for chief concern of chest pain after being found to have ST elevations on EKG. Patient transferred via air ambulance to [facility] on 07/29 for LHC and LOW to [...] 07/29/24 1621 PHART 7.48* 7.44 7.38 7.37 DSY5AUA 29* 29* 34* 36 PO2ART 71* 109* 141* 71* KQI5ITO 20.6 19.4* 19.5* 20.4 VBG (Venous Blood Gas) Recent Labs 07/29/24 1401 PHVEN 7.30* PO2VEN 39 OVS3YSJ 20.1* Mixed Venous Sat No results for input(s): E4JLME8 in the last 168 hours. PA Catheter [...] 07/29/24 1621 PHART 7.48* 7.44 7.38 7.37 RSO3CLG 29* 29* 34* 36 PO2ART 71* 109* 141* 71* TWE8KEM 20.6 19.4* 19.5* 20.4 VBG (Venous Blood Gas) Recent Labs 07/29/24 1401 PHVEN 7.30* PO2VEN 39 WAK7CFA 20.1* Mixed Venous Sat No results for input(s): W9YDZU3 in the last 168 hours. Microbiology: Microbiology Results (Last 30 days) Procedure Component Value Units Date/Time Blood culture [[id number]] Collected: 07/29/24 160 Lab Status: Preliminary result Specimen: Blood, Venous Updated: 07/31/24 170 Blood Culture No growth at 48 hours Blood culture [[id number]] Collected: 07/29/24 1608 Lab Status: Preliminary result Specimen: Blood, Venous Updated: 07/31/24 1701 Blood Culture No growth at 48 hours Imaging: Results for orders placed or performed during the hospital encounter of 07/29/24 XR Chest One View (Exam End: 07/29/2024 2:30 PM) Result Value WORKSTATION ID [id number] Impression 1. No pulmonary edema. 2. No pleural effusion. 3. No pneumothorax. Thank you for letting us participate in the care of this patient. If you are a health care provider and have any questions regarding this report, please contact the number below. For patients who have questions please contact the health care coordination manager that requested your imaging first. Electronically signed by: Chris Candelaria MD, [facility] ([phone]), at 07/29/2024 3:21 PM TTE ( 07/30/24) [...] Compared to the overnight study by the pest control supervisor fellow the impella position is stable. The [...] EKG. Patient transferred via air ambulance to [facility] on 07/29 for LHC and LOW to [...] Susannah Ornelas MD Internal Medicine, PGY-1 Cardiology, [facility] 08/01/24 7:13 AM CARDIOLOGY STAFF NOTE I [...] with him; questions answered. Krystal Parker MD, [facility], [facility] Staff Data Reviewer guard chief * Krystal Parker MD - 07/31/2024 1:06 [...] EKG. Patient transferred via air ambulance to [facility] on 07/29 for LHC and LOW to LAD for 100% occlusion. TTE showed apical akinesis and inferior hypokinesis with EF 20%. RHC showed elevated filling pressures. Impella placed and P-level 6 at time of transfer to [facility]. CI initially 1.97, improved to 2.2 After impella. Received about 3 L of fluid during procedural course. Patient initially required norepinephrine 30, epinephrine 10, and vasopressin 0.04 for hemodynamic support, which was weaned upon arrival to [facility] to norepinephrine 20and levo 0.04 N - [...] PCP: Alexia Mtz APRN PCP phone number: [phone] Date of Admission: 07/29/2024 ( Hospital Day 2 days ) Attending:Krystal Parker MD ID: Korey Montoya is a 74 y.o. male w/ PMH of hypertension, HLD, and BPH on Hospital Day2 for chief concern of chest pain after being found to have ST elevations on EKG. Patient transferred via air ambulance to [facility] on 07/29 for LHC and LOW to [...] 0057 07/29/24 1621 PHART 7.44 7.38 7.37 IIC8JOE 29* 34* 36 PO2ART 109* 141* 71* JBX3GFS 19.4* 19.5* 20.4 VBG (Venous Blood Gas) Recent Labs 07/29/24 1401 PHVEN 7.30* PO2VEN 39 WEE5OLM 20.1* Mixed Venous Sat No results for input(s): F2BJNZ2 in the last 168 hours. PA Catheter [...] 0057 07/29/24 1621 PHART 7.44 7.38 7.37 RCE5JHK 29* 34* 36 PO2ART 109* 141* 71* KHI7BVI 19.4* 19.5* 20.4 VBG (Venous Blood Gas) Recent Labs 07/29/24 1401 PHVEN 7.30* PO2VEN 39 PED4IVJ 20.1* Mixed Venous Sat No results for input(s): N8CQJW0 in the last 168 hours. Microbiology: Microbiology Results (Last 30 days) Procedure Component Value Units Date/Time Blood culture [[id number]] Collected: 07/29/241607 Lab Status: Preliminary result Specimen: Blood, Venous Updated: 07/30/241700 Blood Culture No Growth at 18-24 hrs. Blood culture [[id number]] Collected: 07/29/241607 Lab Status: Preliminary result Specimen: Blood, Venous Updated: 07/30/241700 Blood Culture No Growth at 18-24 hrs. Imaging: Results for orders placed or performed during the hospital encounter of 07/29/24 XR Chest One View (Exam End: 07/29/2024 2:30 PM) Result Value WORKSTATION ID [id number] Impression 1. No pulmonary edema. 2. No pleural effusion. 3. No pneumothorax. Thank you for letting us participate in the care of this patient. If you are a health care provider and have any questions regarding this report, please contact the number below. For patients who have questions please contact the health care coordination manager that requested your imaging first. Electronically signed by: Chris Candelaria MD, [facility] ([phone]), at 07/29/2024 3:21 PM TTE ( 07/30/24) [...] Compared to the overnight study by the pest control supervisor fellow the impella position is stable. The [...] EKG. Patient transferred via air ambulance to [facility] on 07/29 for LHC and LOW to [...] work to optimize volume status while continuing nffespf-mftrqa-jtytdqbphc therapies at this time. Obtain comprehensive TTE. [...] ILL WITH THESE DIAGNOSES BEING MANAGED BY [facility] TEAM: # Anterior STEMI, late-presenting # Cardiogenic [...] EKG. Patient transferred via air ambulance to [facility] on 07/29 for LHC and LOW to LAD for 100% occlusion. TTE showed apical akinesis and inferior hypokinesis with EF 20%. RHC showed elevated filling pressures. Impella placed and P-level 6 at time of transfer to [facility]. CI initially 1.97, improved to 2.2 After impella. Received about 3 L of fluid during procedural course. Patient initially required norepinephrine 30, epinephrine 10, and vasopressin 0.04 for hemodynamic support, which was weaned upon arrival to [facility] to norepinephrine 20and levo 0.04 N - [...] PCP: Yoel Artis APRN PCP phone number: [phone] Date of Admission: 07/29/2024 ( Hospital Day 1 day ) Attending:Aubree Silverio MD ID: Korey Montoya is a 74 y.o. male w/ PMH of hypertension, HLD, and BPH on Hospital Day1 for chief concern of chest pain after being found to have ST elevations on EKG. Patient transferred via air ambulance to [facility] on 07/29 for LHC and LOW to LAD for 100% occlusion. 24 Hour Events/Subjective: Yesterday: - Admitted to the [facility] - After his LHC, he demonstrated significant [...] 0057 07/29/24 1621 PHART 7.44 7.38 7.37 XHF6FIL 29* 34* 36 PO2ART 109* 141* 71* ONZ2MLE 19.4* 19.5* 20.4 VBG (Venous Blood Gas) Recent Labs 07/29/24 1401 PHVEN 7.30* PO2VEN 39 WDA1ZRS 20.1* Lactate ( Last 12 hours) 1.3 >> 1.2 Mixed Venous Sat No results for input(s): N5MVIE9 in the last 168 hours. PA Catheter [...] 0057 07/29/24 1621 PHART 7.44 7.38 7.37 VOJ6OIS 29* 34* 36 PO2ART 109* 141* 71* YGL8JSW 19.4* 19.5* 20.4 VBG (Venous Blood Gas) Recent Labs 07/29/24 1401 PHVEN 7.30* PO2VEN 39 VKP2YFX 20.1* Mixed Venous Sat No results for input(s): D1XBLH0 in the last 168 hours. Microbiology: Microbiology Results (Last 30 days) Procedure Component Value Units Date/Time Blood culture [[id number]] Collected: 07/29/24 1608 Lab Status: In process Specimen: Blood, Venous Updated: 07/29/24 1626 Blood culture [[id number]] Collected: 07/29/24 1608 Lab Status: In process Specimen: Blood, Venous Updated: 07/29/24 1615 Imaging: Results for orders placed or performed during the hospital encounter of 07/29/24 XR Chest One View (Exam End: 07/29/2024 2:30 PM) Result Value WORKSTATION ID [id number] Impression 1. No pulmonary edema. 2. No pleural effusion. 3. No pneumothorax. Thank you for letting us participate in the care of this patient. If you are a health care provider and have any questions regarding this report, please contact the number below. For patients who have questions please contact the health care coordination manager that requested your imaging first. Electronically signed by: Chris Candelaria MD, [facility] ([phone]), at 07/29/2024 3:21 PM Medications Scheduled Meds: [...] EKG. Patient transferred via air ambulance to [facility] on 07/29 for LHC and LOW to [...] EKG. Patient transferred via air ambulance to [facility] on 07/29 for LHC and LOW to [...] EKG. Was transferred via air ambulance to [facility] for further management and [facility] demo nstrated 100% occlusion. No significant RCA, LMCA, or LCX disease. LOW placed in LAD with some residual distal disease meriting placement of overlapping distal stent. TTE showed apical akinesis and inferior hypokinesis with EF 20%. RHC showed elevated filling pressures. Impella placed and P-level 6 at time of transfer to [facility]. CI initially 1.97, improved to 2.2 After impella. Received about 3 L of fluid during procedural course. Patient initially required norepinephrine, epinephrine, and vasopressin for hemodynamic support, which was weaned upon arrival to [facility] to norepinephrine 20 and levo 0.04 (epinephrine [...] (WRVU 4.57) performed by Brandan Mcgovern MD [facility] ENDOSCOPY Significant Family History: Family History [...] mouth. Past Week nitroGLYcerin (NITROLINGUAL) 400 mcg/spray [place], Non-Aerosol 1 spray to anus for proctalgia [...] 3.5 guiding catheter and a 3.5 Fr [place] [facility] [place] [facility] 20 Mhz using Manual pullback. Imaging [...] atmospheres. A premounted 3.00 x [address] [place] [facility] (LOW) was deployed with a maximum inflation [...] atmospheres. A premounted 3.00 x [address] [facility] (LOW) was deployed with a maximum inflation [...] a limited study performed by a fellow pest control supervisor to evaluate for cardiogenic shock with impella [...] Compared to the overnight study by the pest control supervisor fellow the impella position is stable. The [...] EKG. Patient transferred via air ambulance to [facility] on 07/29 for LHC and LOW to [...] Name: Korey Montoya : 1950 PCP: Yoel Atris APRN PCP phone number: [phone] Date of Admission: 07/29/2024 ( Hospital Day 0 days ) Attending:Aubree Silverio MD ID: Korey Montoya is a 74 y.o. male w/ PMH of hypertension, HLD, and BPH who presents for chief concern of chest pain after being found to have ST elevations on EKG. Patient transferred via air ambulance to [facility] on 07/29 for LHC and LOW to LAD for 100% occlusion. HPI: Korey Montoya is a 74 y.o. male w/ PMH of hypertension, HLD, and BPH who presents for chief concern of chest pain after being found to have ST elevations on EKG. Patient transferred via air ambulance to [facility] on 07/29 for LHC and LOW to [...] EKG. Was transferred via air ambulance to [facility] for further management and LHC demonstrated 100% [...] (WRVU 4.57) performed by Brandan Mcgovern MD [facility] ENDOSCOPY Family History Family History Problem [...] Blood Gas) No results for input(s): PHART, KPM2JNZ, PO2ART, AIL3UNQ, LACTATEVEN, FHK9OSI, PFRATIOART2 in the last 168 hours. VBG (Venous Blood Gas) Recent Labs 07/29/24 1401 PHVEN 7.30* PO2VEN 39 SRO3JJT 20.1* Mixed Venous Sat No results for input(s): A7NJFZ6 in the last 168 hours. PA Catheter [...] Blood Gas) No results for input(s): PHART, MGK5DUS, PO2ART, QTX3ZVF, LACTATEVEN, LQB1FBK, PFRATIOART2 in the last 168 hours. VBG (Venous Blood Gas) Recent Labs 07/29/24 1401 PHVEN 7.30* PO2VEN 39 UEO2FFY 20.1* Mixed Venous Sat No results for input(s): U7ULKX6 in the last 168 hours. Microbiology: Microbiology [...] EKG. Patient transferred via air ambulance to [facility] on 07/29 for LHC. Found to have 100% occlusion of LAD for which he underwent LOW to LAD.Otherwise no other significant vessel disease. Fahad is currently hemodynamically tenuous but improving upon admission to [facility], requiring hemodynamic support with norepinephrine and vasopressin at time of admission along with mechanical support with Impella device. Reassuringly, he demonstrates decreasing pressor requirements since admission to [facility], with epinephrine completely weaned. He does demonstrate [...] Bernardo Amos MD Internal Medicine, PGY-3 Cardiology, [facility] 07/29/24 3:14 PM Cardiology Attending Note I [...] MD, FACP, FACC Section of Cardiovascular Medicine [facility] Carpentry [employer] bus aide [facility] [employer] [facility] This patient meets or has met [...] to the planned procedure. Hand Hygiene: The tray drier operator did perform hand hygiene prior to arterial [...] ease. Good wave form. Ivan Hernandez MD Extraction Operator Associated attestation - Rolando Yeh MD - [...] Fahad was quite active prior to his [place]. 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 Given parameters for home exercise. He follows a heart healthy diet and is not overweight. His lipids are wnl. Participation in an outpatient cardiac rehabilitation program at [facility] was discussed. Patient agrees to [...] No Patient is insured through: Primary Insurance: [facility] MANAGED MEDICARE Payor: [facility] MANAGED MEDICARE / Plan: [facility] MANAGED MEDICARE COMPLETE / Product Type: [...] Date of Discharge: 08/04/2024 Gaby Wong RN, Pager-[phone] * Initial Assessments - Char Meza, OT - 08/03/2024 10:00 AM EST Occupational Therapy Evaluation Patient profile: Korey Montoya is a 74 y.o. male admitted on 07/29/2024 w/ PMH of hypertension, HLD, and BPH who presents for chief concern of chest pain after being found to have ST elevations onEKG. Patient transferred via air ambulance to [facility] on 07/29 for LHC and LOW to [facility] for 100% occlusion. Past Medical History: Diagnosis Date ADHD HLD (hyperlipidemia) HTN (hypertension) Tremor Past Surgical History: Procedure Laterality Date HAND SURGERY PRO COLONOSCOPY, REMV LESN, SNARE N/A 08/30/2023 COLONOSCOPY, POLYPECTOMY, REMOVAL LESION BY SNARE (WRVU 4.57) performed by Brandan Mcgovern MD [facility] ENDOSCOPY Social History: Patient lives with his . Home Setup: 2 NAOMI to a 1 level home. DME: none Baseline ADL/Mobility: Independent with ADLs and IADLs. Enjoys walking. able assist as needed. Precautions/Special Considerations: Full code. Risk for falls. Subjective: I have access to an [employer] weight gym. (Educated to wait for MD [...] evaluation only Total Minutes, Occupational Therapy: 14 ([id number] (evaluation)) 2017 OT Evaluation Code Rationale: Diagnosis [...] and measurable assessment of functional outcome. Pager: [phone] Char Meza OT 08/03/2024 Occupational Therapy Rehabilitation [...] (Interventions Implemented as Appropriate) Flowsheets (Taken 08/01/2024 5309) Outcome Summary: A+O, no pain. NSR. MAP [...] Procedure Note: Patient Name: Korey Montoya : [id number] MR#: [id number] Case Date: 07/31/2024 Heel Seater: Surgeons and Role: * Maldonado Luis MD - Primary * Quinten Charles PA - Physician Liquefaction And Regasification Helper Preoperative diagnosis: shock, impella Postoperative diagnosis: * same * Procedure(s) performed: Impella removal form right COMMERCIAL LEASING AGENT Access: Right COMMERCIAL LEASING AGENT A time-out was conducted prior to the [...] Admitted From: Transfer from another hospital Location: [facility] Reason for Hospitalization: chest pain Past medical History: Past Medical History: Diagnosis Date ADHD HLD (hyperlipidemia) HTN (hypertension) Tremor Hospitalizations Within the Past 30 Days: no previous admission in last 30 days Current Decision-Making Capacity: Self If AD's have not been completed the following surrogate would be surrogate decision maker per [place] surrogate decision making law. (Only good for 180 days) Any patient receiving care in [place] must abide by [place] law. The hierarchy for surrogate decision making [...] (i) The agent with financial power of estate planning attorney or a conservator appointed in accordance [...] were you homeless or living in a prison (including now)?: No In the past 12 months has the [employer] gas, oil, or water [employer] threatened to shut off services in your [...] it) Home Address confirmed as: Mailing Address: [facility] [address] [address] Physical Address: [address] [place], [place] Social & Family Supports: All names [...] points: Addiction likely Health/Prescription Coverage: Primary Insurance: [facility] [employer] MEDICARE Payor: [employer] MANAGED MEDICARE / Plan: [facility] MANAGED MEDICARE COMPLETE / Product Type: *No Product type* / Secondary Insurance: N/A ; Prescription Coverage: Yes Preferred Pharmacy: [address] [address] Status: Patient is a : No Primary Care Provider confirmed: Alexia Mtz, CRIMINAL PSYCHOLOGIST [phone] Patient/Caregiver Goals of Treatment: return home Potential [...] 07/29/2024 6:25 PM EST Pt arrived from lab head @ 1400. CXR and EKG completed. Impella [...] Procedure Note: Patient Name: Korey Montoya : [id number] MR#: [id number] Case Date: 07/29/2024 Heel Seater: Surgeons and Role: * Vahe Marvin MD - Primary * Susannah Watts PA - Physician Liquefaction And Regasification Helper Preoperative diagnosis: STEMI Postoperative diagnosis: * STEMI, LAD Artery * * Cardiogenic Shock * Procedure(s) performed: [facility] Coronary angiogram Stent insertion coronary IVUS coronary Venous line insert [facility] Paul Colette Catheter Vascular closure device Ventricular assist [...] x 22 mm to [address] [facility] with LIZ 3 flow. Residual distal disease at distal stent, overlapping distal stent was inserted with 3.0 x [address] [facility]. Systolic's in the 80's sustained. Patient re [...] 10:00 AM EST Office Visit Cardiology at [address] [phone] Mushtaq Murphy, CRIMINAL PSYCHOLOGIST Scheduled Orders Name Type Priority Associated Diagnoses [...] (with Diff) (08/04/2024 6:08 AM EST) Pathologist [facility] White Blood Cell 7.27 4.00 - 9.50 x10(3)/mc L 08/04/2024 6:39 AM [facility] Red Blood Cell 4.28(L) 4.58 - 5.54 x10(6)/mc L 08/04/2024 6:39 AM [facility] Hemoglobin 11.6(L) 13.7 - 16.5 g/dL 08/04/2024 6:39 AM [facility] Hematocrit 34.8(L) 40.5 - 48.5 % 08/04/2024 6:39 AM [facility] Mean Cell Volume 81.3(L) 82.9 - 93.1 fL 08/04/2024 6:39 AM [facility] Mean Cell Hemoglobin 27.1(L) 27.5 - 32.1 pg 08/04/2024 6:39 AM [facility] Mean Cell Hemoglobin Concentration 33.3 32.0 - 35.7 g/dL 08/04/2024 6:39 AM [facility] Platelet 178 145 - 357 x10(3)/mc L 08/04/2024 6:39 AM [facility] Mean Platelet Volume 10.6 7.6 - 12.9 fL 08/04/2024 6:39 AM [facility] RDW Standard Deviation 42.0 36.0 - 45.0 fL 08/04/2024 6:39 AM [facility] RDW coefficient of variation 14.3(H) 11.4 - 13.8 % 08/04/2024 6:39 AM [facility] NRBC% auto 0.0 % 08/04/2024 6:39 AM [facility] NRBC Absolute <0.01 <0.01 x10(3)/mc L 08/04/2024 6:39 AM [facility] Neutrophil % 72.1 % 08/04/2024 6:39 AM [facility] Neutrophil Absolute (ANC) - Automated 5.24 1.70 - 6.10 x10(3)/mc L 08/04/2024 6:39 AM [facility] Lymph % 16.8 % 08/04/2024 6:39 AM [facility] Lymph Absolute 1.22 0.90 - 3.20 x10(3)/mc L 08/04/2024 6:39 AM [facility] Monocyte % 8.5 % 08/04/2024 6:39 AM [facility] Monocyte Absolute 0.62 0.30 - 0.90 x10(3)/mc L 08/04/2024 6:39 AM [facility] Eos % 1.9 % 08/04/2024 6:39 AM [facility] Eos Absolute 0.14 0.00 - 0.40 x10(3)/mc L 08/04/2024 6:39 AM [facility] Basophil % 0.4 % 08/04/2024 6:39 AM [facility] Baso Absolute <0.04 0.00 - 0.10 x10(3)/mc L 08/04/2024 6:39 AM [facility] Immature Gran % 0.3 % 6:39 AM [facility] Immature Gran Absolute <0.04 0.00 - 0.04 x10(3)/mc L 08/04/2024 6:39 AM EST [facility] Blood VENOUS BLOOD SPECIMEN / Unknown Venipuncture / Unknown 08/04/2024 6:08 AM EST 08/04/2024 6:19 AM EST Bridgette Stauffer MD HEMATOLOGY ORDERABLE S Performing Organization Address City/[facility]/ZIP Co de Phone Number [facility] [place] [address] * Magnesium (08/04/2024 6:08 AM EST) Magnesium 0.85 0.69 - 1.07 mMol/L 08/04/2024 7:07 AM [facility] Blood VENOUS BLOOD SPECIMEN / Unknown Venipuncture / Unknown 08/04/2024 6:08 AM EST 08/04/2024 6:19 AM EST Bridgette Stauffer MD CHEMISTRY ORDERABLES Performing Organization Address City/[facility]/ZIP Co de Phone Number [facility] [place] [address] * Basic Metabolic Panel (08/04/2024 6:08 AM EST) Glucose 93 65 - 199 mg/dL 08/04/2024 7:07 AM [facility] Comment:Glucose Concentratio n >=200 mg/dL plus symptoms is consistent with Diabetes Mellitus. Blood Urea Nitrogen 14 10 - 20 mg/dL 08/04/2024 7:07 AM [facility] Creatinine 1.07 0.80 - 1.50 mg/dL 08/04/2024 7:07 AM [facility] Sodium 138 135 - 145 mMol/L 08/04/2024 7:07 AM [facility] Potassium 4.3 3.5 - 5.0 mMol/L 08/04/2024 7:07 AM [facility] Chloride 107 98 - 107 mMol/L 08/04/2024 7:07 AM [facility] Carbon Dioxide 23 22 - [...] CHEMISTRY ORDERABLES [facility] [place] [address] * (ABNORMAL) CBC (with Diff) (08/03/2024 5:16 [...] 40.5 - 48.5 % 08/03/2024 5:29 AM [facility] Mean Cell Volume 81.0(L) 82.9 - 93.1 fL 08/03/2024 5:29 AM [facility] Mean Cell Hemoglobin 26.6(L) 27.5 - 32.1 pg 08/03/2024 5:29 AM [facility] Mean Cell Hemoglobin Concentration 32.9 32.0 - 35.7 g/dL 08/03/2024 5:29 AM [facility] Platelet 142(L) 145 - 357 x10(3)/mc L 08/03/2024 5:29 AM [facility] Mean Platelet Volume 10.5 7.6 - 12.9 fL 08/03/2024 5:29 AM [facility] RDW Standard Deviation 42.5 36.0 - 45.0 fL 08/03/2024 5:29 AM [facility] RDW coefficient of variation 14.2(H) 11.4 - 13.8 % 08/03/2024 5:29 AM [facility] NRBC% auto 0.0 % 08/03/2024 5:29 AM [facility] NRBC Absolute <0.01 <0.01 x10(3)/mc L 08/03/2024 5:29 AM [facility] Neutrophil % 75.2 % 08/03/2024 5:29 AM [facility] Neutrophil Absolute (ANC) - Automated 5.91 1.70 - 6.10 x10(3)/mc L 08/03/2024 5:29 AM [facility] Lymph % 13.4 % 08/03/2024 5:29 AM [facility] Lymph Absolute 1.05 0.90 - 3.20 x10(3)/mc L 08/03/2024 5:29 AM [facility] Monocyte % 9.0 % 08/03/2024 5:29 AM [facility] Monocyte Absolute 0.71 0.30 - 0.90 x10(3)/mc L 08/03/2024 5:29 AM [facility] Eos % 1.7 % 08/03/2024 5:29 AM [facility] Eos Absolute 0.13 0.00 - 0.40 x10(3)/mc L 08/03/2024 5:29 AM [facility] Basophil % 0.4 % 08/03/2024 5:29 AM [facility] Baso Absolute <0.04 0.00 - 0.10 x10(3)/mc L 08/03/2024 5:29 AM [facility] Immature Gran % 0.3 % 5:29 AM [facility] Immature Gran Absolute <0.04 0.00 - 0.04 x10(3)/mc L 08/03/2024 5:29 AM [facility] Blood VENOUS BLOOD SPECIMEN / Unknown Venipuncture / Unknown 08/03/2024 5:16 AM EST 08/03/2024 5:23 AM EST Bridgette Stauffer MD HEMATOLOGY ORDERABLE S [facility] [place] [address] * Magnesium (08/03/2024 5:16 AM EST) Magnesium 0.89 0.69 - 1.07 mMol/L 08/03/2024 5:56 AM [facility] Blood VENOUS BLOOD SPECIMEN / Unknown Venipuncture / Unknown 08/03/2024 5:16 AM EST 08/03/2024 5:23 AM EST Bridgette Stauffer MD CHEMISTRY ORDERABLES [facility] [place] [address] * (ABNORMAL) Basic Metabolic Panel (08/03/2024 5:16 AM EST) Glucose 98 65 - 199 mg/dL 08/03/2024 5:56 AM [facility] Comment:Glucose Concentratio n >=200 mg/dL plus symptoms is consistent with Diabetes Mellitus. Blood Urea Nitrogen 16 10 - 20 mg/dL 08/03/2024 5:56 AM [facility] Creatinine 0.85 0.80 - 1.50 mg/dL 08/03/2024 5:56 AM [facility] Sodium 137 135 - 145 mMol/L 08/03/2024 5:56 AM [facility] Potassium 4.5 3.5 - 5.0 mMol/L 08/03/2024 5:56 AM [facility] Chloride 106 98 - 107 mMol/L 08/03/2024 5:56 AM [facility] Carbon Dioxide 21(L) 22 - 31 mMol/L 08/03/2024 5:56 AM [facility] Anion Gap 10 5 - 15 mMol/L 08/03/2024 5:56 AM [facility] Calcium 8.3(L) 8.5 - 10.5 mg/dL 08/03/2024 5:56 AM [facility] Est Glomerular Filtration Rate - Male 92 mL/min/1. 73 m?? 08/03/2024 5:56 AM [facility] Comment: This patient's estimated GFR [...] ORDERABLES Performing Organization Address [facility]/ZIP Co de Phone Number [facility] [place] [address] * POC, GLUCOSE (08/02/2024 7:47 AM EST) [facility] Glucometer, POC 89 65 - 199 mg/dL 08/02/2024 7:47 AM EST [facility] Comment:Supplemental ranges: <140 mg/dL before meals <180 mg/dL all other times of the day. Blood CAPILLARY BLOOD / Unknown 08/02/2024 7:47 AM EST 08/02/2024 7:47 AM EST Krystal Parker MD POINT OF CARE TEST O RDERABLES Performing Organization Address [facility] Co de Phone Number [facility] [place] [address] * (ABNORMAL) CBC (with Diff) (08/02/2024 4:20 AM EST) [facility] White Blood Cell 8.51 4.00 - 9.50 x10(3)/mc L 08/02/2024 4:50 AM [facility] Red Blood Cell 4.41(L) 4.58 - 5.54 x10(6)/mc L 08/02/2024 4:50 AM [facility] Hemoglobin 12.2(L) 13.7 - 16.5 g/dL 08/02/2024 4:50 AM [facility] Hematocrit 35.8(L) 40.5 - 48.5 % 08/02/2024 4:50 AM [facility] Mean Cell Volume 81.2(L) 82.9 - 93.1 fL 08/02/2024 4:50 AM [facility] Mean Cell Hemoglobin 27.7 27.5 - 32.1 pg 08/02/2024 4:50 AM [facility] Mean Cell Hemoglobin Concentration 34.1 32.0 - 35.7 g/dL 08/02/2024 4:50 AM [facility] Platelet 111(L) 145 - 357 x10(3)/mc L 08/02/2024 4:50 AM [facility] Mean Platelet Volume 11.1 7.6 - 12.9 fL 08/02/2024 4:50 AM [facility] RDW Standard Deviation 41.9 36.0 - 45.0 fL 08/02/2024 4:50 AM [facility] RDW coefficient of variation 14.1(H) 11.4 - 13.8 % 08/02/2024 4:50 AM [facility] NRBC% auto 0.0 % 08/02/2024 4:50 AM [facility] NRBC Absolute <0.01 <0.01 x10(3)/mc L 08/02/2024 4:50 AM [facility] Neutrophil % 77.7 % 08/02/2024 4:50 AM [facility] Neutrophil Absolute (ANC) - Automated 6.62(H) 1.70 - 6.10 x10(3)/mc L 08/02/2024 4:50 AM [facility] Lymph % 11.9 % 08/02/2024 4:50 AM [facility] Lymph Absolute 1.01 0.90 - 3.20 x10(3)/mc L 08/02/2024 4:50 AM [facility] Monocyte % 8.2 % 08/02/2024 4:50 AM [facility] Monocyte Absolute 0.70 0.30 - 0.90 x10(3)/mc L 08/02/2024 4:50 AM [facility] Eos % 1.4 % 08/02/2024 4:50 AM [facility] Eos Absolute 0.12 0.00 - 0.40 x10(3)/mc L 08/02/2024 4:50 AM EST [facility] Basophil % 0.4 % 08/02/2024 4:50 AM [facility] Baso Absolute <0.04 0.00 - 0.10 x10(3)/mc L 08/02/2024 4:50 AM [facility] Immature Gran % 0.4 % 4:50 AM [facility] Immature Gran Absolute <0.04 0.00 - 0.04 x10(3)/mc L 08/02/2024 4:50 AM [facility] Blood VENOUS BLOOD SPECIMEN / Unknown Venipuncture / Unknown 08/02/2024 4:20 AM EST 08/02/2024 4:37 AM EST Bridgette Stauffer MD HEMATOLOGY ORDERABLE S Performing Organization Address City/[facility]/ZIP Co de Phone Number [facility] [place] [address] * Magnesium (08/02/2024 4:20 AM EST) Magnesium 0.79 0.69 - 1.07 mMol/L 08/02/2024 5:06 AM [facility] Blood VENOUS BLOOD SPECIMEN / Unknown Venipuncture / Unknown 08/02/2024 4:20 AM EST 08/02/2024 4:37 AM EST Bridgette Stauffer MD CHEMISTRY ORDERABLES [facility] [place] [address] * (ABNORMAL) Basic Metabolic Panel (08/02/2024 4:20 AM EST) Glucose 110 65 - 199 mg/dL 08/02/2024 5:06 AM [facility] Comment:Glucose Concentratio n >=200 mg/dL plus symptoms is consistent with Diabetes Mellitus. Blood Urea Nitrogen 12 10 - 20 mg/dL 08/02/2024 5:06 AM [facility] Creatinine 0.90 0.80 - 1.50 mg/dL 08/02/2024 5:06 AM [facility] Sodium 139 135 - 145 mMol/L 08/02/2024 5:06 AM [facility] Potassium 4.0 3.5 - 5.0 mMol/L 08/02/2024 5:06 AM [facility] Chloride 108(H) 98 - 107 mMol/L 08/02/2024 5:06 AM [facility] Carbon Dioxide 23 22 - 31 mMol/L 08/02/2024 5:06 AM [facility] Anion Gap 8 5 - 15 mMol/L 08/02/2024 5:06 AM [facility] Calcium 8.1(L) 8.5 - 10.5 mg/dL 08/02/2024 5:06 AM [facility] Est Glomerular Filtration Rate - Male 91 mL/min/1. 73 m?? 08/02/2024 5:06 AM [facility] Comment: This patient's estimated GFR [...] CHEMISTRY ORDERABLES [facility] [place] [address] * Potassium (08/01/2024 8:39 PM EST) Potassium 4.0 3.5 - 5.0 mMol/L 08/01/2024 9:21 PM EST [facility] Blood VENOUS BLOOD SPECIMEN / Unknown Venipuncture / Unknown 08/01/2024 8:39 PM EST 08/01/2024 8:51 PM EST Aubree Silverio MD CHEMISTRY ORDERABL ES Performing Organization Address City/[facility]/ZIP Co de Phone Number [facility] [place] [address] * POC, GLUCOSE (08/01/2024 8:35 PM EST) [...] RDKAY Performing Organization Address [facility] Co de Phone Number [facility] [place] [address] * POC, GLUCOSE (08/01/2024 4:55 PM EST) Glucometer, POC 99 65 - 199 mg/dL 08/01/2024 4:56 PM EST [facility] Comment:Supplemental ranges: <140 mg/dL before meals <180 mg/dL all other times of the day. Blood CAPILLARY BLOOD / Unknown 08/01/2024 4:55 PM EST 08/01/2024 4:56 PM EST Krystal Parker MD POINT OF CARE TEST O RDKAY Performing Organization Address City/[facility]/ZIP Co de Phone Number [facility] [place] [address] * POC, GLUCOSE (08/01/2024 12:42 PM EST) [...] O RDERASHAY [facility] [place] [address] * (ABNORMAL) Cooximetry, POC (08/01/2024 10:45 AM EST) Pathologist [facility] pO2, Coox 32 mmHg 08/01/2024 10:48 AM [facility] Hemoglobin, Coox 12.9(L) 13.7 - 16.5 g/dL 08/01/2024 10:48 AM [facility] Oxyhemoglobin, Coox 66.7 % 08/01/2024 10:48 AM [facility] Carboxyhemoglo bin, Coox 1.1 % 08/01/2024 10:48 AM [facility] Comment: Nonsmokers: 0.5-1.5% COHB ?? Smokers: Variable ??but usually less than 10% ?? Toxic: 20-30% COHB ?? Lethal: Greater than 60% COHB Methemoglobin, Coox 0.3 <=1.5 % 08/01/2024 10:48 AM [facility] Blood (Mixed Venous) 08/01/2024 10:45 AM EST 08/01/2024 10:48 AM EST Krystal Parker MD POINT OF CARE TEST O RDERABLES Performing Organization Address City/[facility]/ZIP Co de Phone Number [facility] [place] [address] * Potassium (08/01/2024 8:20 AM EST) Pathologist [facility] Potassium 4.0 3.5 - 5.0 mMol/L 08/01/2024 10:17 AM EST [facility] Blood ARTERIAL BLOOD / Unknown Venipuncture / Unknown 08/01/2024 8:20 AM EST 08/01/2024 8:30 AM EST Aubree Silverio MD CHEMISTRY ORDERABL ES Performing Organization Address City/[facility]/ZIP Co de Phone Number [facility] [place] [address] * POC, GLUCOSE (08/01/2024 7:44 AM EST) [facility] Glucometer, POC 86 65 - 199 mg/dL 08/01/2024 7:44 AM EST [facility] Comment:Supplemental ranges: <140 mg/dL before meals <180 mg/dL all other times of the day. Blood CAPILLARY BLOOD / Unknown 08/01/2024 7:44 AM EST 08/01/2024 7:44 AM EST Krystal Parker MD POINT OF CARE TEST O RDERABLES Performing Organization Address City/[facility]/ZIP Co de Phone Number [facility] [place] [address] * (ABNORMAL) CBC (with Diff) (08/01/2024 4:18 AM EST) [facility] White Blood Cell 8.51 4.00 - 9.50 x10(3)/mc L 08/01/2024 4:53 AM EST [facility] Red Blood Cell 4.12(L) 4.58 - 5.54 x10(6)/mc L 08/01/2024 4:53 AM EST [facility] Hemoglobin 11.2(L) 13.7 - 16.5 g/dL 08/01/2024 4:53 AM EST [facility] Hematocrit 33.8(L) 40.5 - 48.5 % 08/01/2024 4:53 AM [facility] Mean Cell Volume 82.0(L) 82.9 - 93.1 fL 08/01/2024 4:53 AM [facility] Mean Cell Hemoglobin 27.2(L) 27.5 - 32.1 pg 08/01/2024 4:53 AM [facility] Mean Cell Hemoglobin Concentration 33.1 32.0 - 35.7 g/dL 08/01/2024 4:53 AM [facility] Platelet 94(L) 145 - 357 x10(3)/mc L 08/01/2024 4:53 AM [facility] Mean Platelet Volume 10.9 7.6 - 12.9 fL 08/01/2024 4:53 AM [facility] RDW Standard Deviation 44.2 36.0 - 45.0 fL 08/01/2024 4:53 AM [facility] RDW coefficient of variation 14.7(H) 11.4 - 13.8 % 08/01/2024 4:53 AM [facility] NRBC% auto 0.0 % 08/01/2024 4:53 AM [facility] NRBC Absolute <0.01 <0.01 x10(3)/mc L 08/01/2024 4:53 AM [facility] Neutrophil % 82.7 % 08/01/2024 4:53 AM [facility] Neutrophil Absolute (ANC) - Automated 7.04(H) 1.70 - 6.10 x10(3)/mc L 08/01/2024 4:53 AM [facility] Lymph % 8.6 % 08/01/2024 4:53 AM [facility] Lymph Absolute 0.73(L) 0.90 - 3.20 x10(3)/mc L 08/01/2024 4:53 AM [facility] Monocyte % 7.6 % 08/01/2024 4:53 AM [facility] LABORATORY Monocyte Absolute 0.65 0.30 - 0.90 x10(3)/mc L 08/01/2024 4:53 AM [facility] Eos % 0.5 % 08/01/2024 4:53 AM [facility] Eos Absolute 0.04 0.00 - 0.40 x10(3)/mc L 08/01/2024 4:53 AM [facility] Basophil % 0.2 % 08/01/2024 4:53 AM [facility] Baso Absolute <0.04 0.00 - 0.10 x10(3)/mc L 08/01/2024 4:53 AM [facility] Immature Gran % 0.4 % 4:53 AM [facility] Immature Gran Absolute <0.04 0.00 - 0.04 x10(3)/mc L 08/01/2024 4:53 AM [facility] Blood VENOUS BLOOD SPECIMEN / Unknown Venipuncture / Unknown 08/01/2024 4:18 AM EST 08/01/2024 4:29 AM EST Bridgette Stauffer MD HEMATOLOGY ORDERABLE S [facility] [place] [address] * Magnesium (08/01/2024 4:18 AM EST) Magnesium 0.74 0.69 - 1.07 mMol/L 08/01/2024 5:00 AM [facility] Blood VENOUS BLOOD SPECIMEN / Unknown Venipuncture / Unknown 08/01/2024 4:18 AM EST 08/01/2024 4:29 AM EST Bridgette Stauffer MD CHEMISTRY ORDERABLES [facility] [place] [address] * (ABNORMAL) Basic Metabolic Panel (08/01/2024 4:18 AM EST) Glucose 107 65 - 199 mg/dL 08/01/2024 5:00 AM [facility] Comment:Glucose Concentratio n >=200 mg/dL plus symptoms is consistent with Diabetes Mellitus. Blood Urea Nitrogen 8(L) 10 - 20 mg/dL 08/01/2024 5:00 AM [facility] Creatinine 0.82 0.80 - 1.50 mg/dL 08/01/2024 5:00 AM [facility] Sodium 137 135 - 145 mMol/L 08/01/2024 5:00 AM [facility] Potassium 3.9 3.5 - 5.0 mMol/L 08/01/2024 5:00 AM [facility] Chloride 108(H) 98 - 107 mMol/L 08/01/2024 5:00 AM [facility] Carbon Dioxide 21(L) 22 - 31 mMol/L 08/01/2024 5:00 AM [facility] Anion Gap 8 5 - 15 mMol/L 08/01/2024 5:00 AM [facility] Calcium 7.7(L) 8.5 - 10.5 mg/dL 08/01/2024 5:00 AM [facility] Est Glomerular Filtration Rate - Male 93 mL/min/1. 73 m?? 08/01/2024 5:00 AM [facility] Comment: This patient's estimated GFR [...] AM EST 08/01/2024 4:29 AM EST Bridgette tSauffer MD CHEMISTRY ORDERABLES Performing Organization Address [facility] de Phone Number [facility] [place] [address] * POC, GLUCOSE (07/31/2024 8:41 PM EST) [facility] Signature Glucometer, POC 73 65 - 199 mg/dL 07/31/2024 8:41 PM EST [facility] Comment:Supplemental ranges: <140 mg/dL before meals <180 mg/dL all other times of the day. Blood CAPILLARY BLOOD / Unknown 07/31/2024 8:41 PM EST 07/31/2024 8:41 PM EST Krystal Parker MD POINT OF CARE TEST O RDERABLES Performing Organization Address [facility] de Phone Number [facility] [place] [address] * CARDIAC CATHETERIZATION (07/31/2024 5:53 PM EST) Anatomical Region Laterality Modality Other Narrative 08/01/2024 12:37 PM EST ?[facility] ? Cardiac Catheterization/Intervention Report ? Patient Name: Korey MontoyaToby ? Procedure Date: 07/31/2024 ? A #: [id number] ? Primary Physician: Maldonado Luis ? Case #: [id number] ? File Name: [id number] ? Catheterization Order Number: [id number] ? [facility] ? Final Report [place], [place] ? Patient Name: ? Korey P. Montoya ?ID#: ?[id number] ? : ?1950 ? Procedure Date: ? [...] ? Comments: ?Impella removed from the right COMMERCIAL LEASING AGENT with deployment of Perclose and ?Angioseal. ??Good [...] Procedure Note Maldonado Luis MD - 08/01/2024 [facility] Cardiac Catheterization/Intervention Report Patient Name: Korey MontoyaToby Procedure Date: 07/31/2024 A #: [id number] Primary Physician: Maldonado Luis Case #: [id number] File Name: [id number] Catheterization Order Number: [id number] [facility] FinalReport [place], [place] Patient Name: Korey Montoya ID#:[id number] :1950 Procedure Date: July 31, 2024 Case [...] was designated as ASA Class IV. The [facility] clinical frailtyscale is 4: Vulnerable. [...] procedures. Comments: Impella removed from the right COMMERCIAL LEASING AGENT with deployment of Perclose and Angioseal. Good [...] City/State/[facility] Co de Phone Number [facility] [place] [address] * (ABNORMAL) Blood Gas, Arterial POC (07/31/2024 8:29 AM EST) pH, Arterial 7.48(H) 7.35 - 7.45 07/31/2024 8:30 AM [facility] PCO2, Arterial 29(L) 35 - 45 mmHg 07/31/2024 8:30 AM [facility] PO2, Arterial 71(L) 85 - 104 mmHg 07/31/2024 8:30 AM [facility] Bicarbonate, Arterial 20.6 20.0 - 26.0 mmol/L 07/31/2024 8:30 AM [facility] Base Excess, Arterial -3.0 -3.0 - 3.0 mmol/L 07/31/2024 8:30 AM [facility] Hemoglobin, Arterial 12.3(L) 13.7 - 16.5 g/dL 07/31/2024 8:30 AM [facility] Oxyhemoglobin, Arterial 94.4 94.0 - 97.0 % 07/31/2024 8:30 AM [facility] Carboxyhemoglobin , Arterial 0.7 % 07/31/2024 8:30 AM [facility] Comment: Nonsmokers: 0.5-1.5% COHB ?? Smokers: Variable ??but usually less than 10% ?? Toxic: 20-30% COHB ?? Lethal: Greater than 60% COHB Methemoglobin, Arterial 0.3 <=1.5 % 07/31/2024 8:30 AM [facility] Sodium, Arterial 138 135 - 145 mmol/L 07/31/2024 8:30 AM [facility] Potassium, Arterial 3.5 3.5 - 5.0 mmol/L 07/31/2024 8:30 AM [facility] Chloride, Arterial 109(H) 98 - 107 mmol/L 07/31/2024 8:30 AM [facility] Lactate, Arterial 0.8 0.5 - 2.2 mmol/L 07/31/2024 8:30 AM [facility] Fraction of Inspired Oxygen 21 % 07/31/2024 8:30 AM [facility] PF Ratio 338 Ratio 07/31/2024 8:30 AM [facility] Comment:PF ratio calculated using the non-temperature corrected pO2 result. IONIZED CALCIUM, ARTERIAL 1.08(L) 1.15 - 1.33 mmol/L 07/31/2024 8:30 AM [facility] Glucose, Arterial 86 65 - 199 mg/dL 07/31/2024 8:30 AM EST [facility] Comment:Glucose Concentratio n >=200 mg/dL plus symptoms is consistent with Diabetes Mellitus. Blood ARTERIAL BLOOD / Unknown 07/31/2024 8:29 AM EST 07/31/2024 8:30 AM EST Krystal Parker MD POINT OF CARE TEST O RDERABLES [facility] [place] [address] * POC, GLUCOSE (07/31/2024 7:47 AM EST) [...] O RDERABLES [facility] [place] [address] * (ABNORMAL) CBC (with Diff) (07/31/2024 1:08 AM EST) [facility] White Blood Cell 10.25(H) 4.00 - 9.50 x10(3)/mc L 07/31/2024 1:28 AM [facility] Red Blood Cell 4.13(L) 4.58 - 5.54 x10(6)/mc L 07/31/2024 1:28 AM [facility] Hemoglobin 11.2(L) 13.7 - 16.5 g/dL 07/31/2024 1:28 AM [facility] Hematocrit 33.9(L) 40.5 - 48.5 % 07/31/2024 1:28 AM [facility] Mean Cell Volume 82.1(L) 82.9 - 93.1 fL 07/31/2024 1:28 AM [facility] Mean Cell Hemoglobin 27.1(L) 27.5 - 32.1 pg 07/31/2024 1:28 AM [facility] Mean Cell Hemoglobin Concentration 33.0 32.0 - 35.7 g/dL 07/31/2024 1:28 AM [facility] Platelet 109(L) 145 - 357 x10(3)/mc L 07/31/2024 1:28 AM [facility] Mean Platelet Volume 10.4 7.6 - 12.9 fL 07/31/2024 1:28 AM [facility] RDW Standard Deviation 45.1(H) 36.0 - 45.0 fL 07/31/2024 1:28 AM [facility] RDW coefficient of variation 15.1(H) 11.4 - 13.8 % 07/31/2024 1:28 AM [facility] NRBC% auto 0.0 % 07/31/2024 1:28 AM [facility] NRBC Absolute <0.01 <0.01 x10(3)/mc L 07/31/2024 1:28 AM [facility] Neutrophil % 79.7 % 07/31/2024 1:28 AM [facility] Neutrophil Absolute (ANC) - Automated 8.17(H) 1.70 - 6.10 x10(3)/mc L 07/31/2024 1:28 AM [facility] Lymph % 12.8 % 07/31/2024 1:28 AM [facility] Lymph Absolute 1.31 0.90 - 3.20 x10(3)/mc L 07/31/2024 1:28 AM [facility] Monocyte % 6.9 % 07/31/2024 1:28 AM [facility] Monocyte Absolute 0.71 0.30 - 0.90 x10(3)/mc L 07/31/2024 1:28 AM [facility] Eos % 0.1 % 07/31/2024 1:28 AM [facility] Eos Absolute <0.04 0.00 - 0.40 x10(3)/mc L 07/31/2024 1:28 AM [facility] Basophil % 0.3 % 07/31/2024 1:28 AM [facility] Baso Absolute <0.04 0.00 - 0.10 x10(3)/mc L 07/31/2024 1:28 AM [facility] Immature Gran % 0.2 % 1:28 AM EST [facility] Immature Gran Absolute <0.04 0.00 - 0.04 x10(3)/mc L 07/31/2024 1:28 AM [facility] Blood VENOUS BLOOD SPECIMEN / Unknown Venipuncture / Unknown 07/31/2024 1:08 AM EST 07/31/2024 1:18 AM EST Bridgette Stauffer MD HEMATOLOGY ORDERABLE S Performing Organization Address [facility] Co de Phone Number [facility] [place] [address] * Magnesium (07/31/2024 1:08 AM EST) Pathologist [facility] Magnesium 0.89 0.69 - 1.07 mMol/L 07/31/2024 1:46 AM [facility] Blood VENOUS BLOOD SPECIMEN / Unknown Venipuncture / Unknown 07/31/2024 1:08 AM EST 07/31/2024 1:18 AM EST Bridgette Stauffer MD CHEMISTRY ORDERABLES Performing Organization Address City/[facility] Co de Phone Number [facility] [place] [address] * (ABNORMAL) Basic Metabolic Panel (07/31/2024 1:08 AM EST) Pathologist [facility] Glucose 97 65 - 199 mg/dL 07/31/2024 1:46 AM [facility] Comment:Glucose Concentratio n >=200 mg/dL plus symptoms is consistent with Diabetes Mellitus. Blood Urea Nitrogen 11 10 - 20 mg/dL 07/31/2024 1:46 AM [facility] Creatinine 0.96 0.80 - 1.50 mg/dL 07/31/2024 1:46 AM [facility] Sodium 140 135 - 145 mMol/L 07/31/2024 1:46 AM [facility] Potassium 4.1 3.5 - 5.0 mMol/L 07/31/2024 1:46 AM EST [facility] Chloride 110(H) 98 - 107 mMol/L 07/31/2024 1:46 AM EST [facility] Carbon Dioxide 24 22 - 31 mMol/L 07/31/2024 1:46 AM [facility] Anion Gap 6 5 - 15 mMol/L 07/31/2024 1:46 AM [facility] Calcium 7.7(L) 8.5 - 10.5 mg/dL 07/31/2024 1:46 AM [facility] Est Glomerular Filtration Rate - Male 84 mL/min/1. 73 m?? 07/31/2024 1:46 AM [facility] Comment: This patient's estimated GFR [...] CHEMISTRY ORDERABLES [facility] [place] [address] * (ABNORMAL) Hepatic Function Panel (07/31/2024 1:08 [...] 40 - 130 unit/L 07/31/2024 1:46 AM [facility] Bilirubin, Total 0.4 <=1.3 mg/dL 07/31/2024 1:46 AM [facility] Bilirubin, Direct <0.2 0.0 - 0.3 mg/dL 07/31/2024 1:46 AM [facility] Protein, Total 5.0(L) 6.1 - 8.0 g/dL 07/31/2024 1:46 AM [facility] Blood VENOUS BLOOD SPECIMEN / Unknown Venipuncture / Unknown 07/31/2024 1:08 AM EST 07/31/2024 1:18 AM EST Krystal Parker MD CHEMISTRY ORDERABLES Performing Organization Address City/[facility] Co de Phone Number [facility] [place] [address] * POC, GLUCOSE (07/30/2024 8:03 PM EST) Glucometer, POC 86 65 - 199 mg/dL 07/30/2024 8:03 PM EST [facility] Comment:Supplemental ranges: <140 mg/dL before meals <180 mg/dL all other times of the day. Blood CAPILLARY BLOOD / Unknown 07/30/2024 8:03 PM EST 07/30/2024 8:03 PM EST Krystal Parker MD POINT OF CARE TEST O RDERABLES Performing Organization Address City/[facility]/ZIP Co de Phone Number [facility] [place] [address] * Potassium (07/30/2024 8:03 PM EST) Potassium 3.8 3.5 - 5.0 mMol/L 07/30/2024 9:13 PM EST [facility] Blood VENOUS BLOOD SPECIMEN / Unknown Venipuncture / Unknown 07/30/2024 8:03 PM EST 07/30/2024 8:22 PM EST Aubree Silverio MD CHEMISTRY ORDERABL ES Performing Organization Address [facility]/ZIP Co de Phone Number [facility] [place] [address] * POC, GLUCOSE (07/30/2024 6:23 PM EST) [...] JOSH Performing Organization Address [facility] Co de Phone Number [facility] [place] [address] * POC, GLUCOSE (07/30/2024 5:08 PM EST) [...] JOSH Performing Organization Address [facility] Co de Phone Number [facility] [place] [address] * (ABNORMAL) Phosphorus (07/30/2024 3:08 PM EST) Phosphorus 2.1(L) 2.5 - 4.5 mg/dL 07/30/2024 3:58 PM EST [facility] Blood VENOUS BLOOD SPECIMEN / Unknown Venipuncture / Unknown 07/30/2024 3:08 PM EST 07/30/2024 3:12 PM EST Aubree Silverio MD CHEMISTRY ORDERABL ES Performing Organization Address [facility]/ZIP Co de Phone Number [facility] [place] [address] * Magnesium (07/30/2024 3:08 PM EST) Magnesium 0.90 0.69 - 1.07 mMol/L 07/30/2024 3:58 PM EST [facility] Blood VENOUS BLOOD SPECIMEN / Unknown Venipuncture / Unknown 07/30/2024 3:08 PM EST 07/30/2024 3:12 PM EST Aubree Silverio MD CHEMISTRY ORDERABL ES Performing Organization Address City/[facility]/ZIP Co de Phone Number [facility] [place] [address] * (ABNORMAL) Basic Metabolic Panel (07/30/2024 3:08 PM EST) Glucose 105 65 - 199 mg/dL 07/30/2024 4:17 PM [facility] Comment:Glucose Concentratio n >=200 mg/dL plus symptoms is consistent with Diabetes Mellitus. Blood Urea Nitrogen 13 10 - 20 mg/dL 07/30/2024 4:17 PM EST [facility] Creatinine 1.01 0.80 - 1.50 mg/dL 07/30/2024 4:17 PM [facility] Sodium 141 135 - 145 mMol/L 07/30/2024 4:17 PM [facility] Potassium 3.4(L) 3.5 - 5.0 mMol/L 07/30/2024 4:17 PM [facility] Chloride 109(H) 98 - 107 mMol/L 07/30/2024 4:17 PM [facility] Carbon Dioxide 21(L) 22 - [...] ES [facility] [place] [address] * ECHO LMTD W CONTRAST W LMTD SPEC DOPP COLOR DOPP (07/30/2024 11:42 AM EST) Anatomical Region Laterality Modality Cardiac Other 07/30/2024 10:2 2 AM EST Narrative 07/30/2024 12:34 PM EST [address] [place] [address] ? Echocardiogram Report Name: KOREY MONTOYA ? Study Date: 07/30/2024 10:22 AMBP: 124/66 mmHg : 1950 ? Height: 168 cm ? Account: [id number] Age: 74 yrs ? Weight: 65 kg Gender: Male ?BSA: 1.7 m2 Ordering Physician: Aubree Silverio MD Referring Physician: CHAPARRO FERRERA Performed By: OMERO Millan Reason For Study: ST elevation myocardial infarction involving left anterior descending (LAD) coronary artery Interpreting Fellow: Ivan Hernandez. Exam Location: [facility]. Interpretation Summary Left ventricle is severely [...] Compared to the overnight study by the pest control supervisor fellow the impella position is stable. 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 Procedure Limited - 97365. Image enhancement Definity was used for both [...] Procedure Note Kathleen Banda MD - 07/30/[address] [place] [id number] Echocardiogram Report Name: KOREY MONTOYA Kyrie Study Date: 410:22 AMBP: 124/66 mmHg : 1950 Height: 168 cm Account: [id number] Age: 74 yrs Weight: 65 kg Gender: Male BSA: 1.7 m2 Ordering Physician: Aubree Silverio MD Referring Physician: CHAPARRO FERRERA Performed By: OMERO Millan Reason For Study: ST elevation myocardial infarction involving leftanterior descending (LAD) coronary artery Interpreting Fellow: Ivan Hernandez. Exam Location: [facility]. Interpretation Summary Left ventricle is severely [...] Compared to the overnight study by the pest control supervisor fellow the impella positionis stable. The global left ventricular systolic function has improvedpredominantly via recruitment outside the LAD territory which remains akinetic. Procedure Limited - 84353. Image enhancement Definity was used for both [...] 65 - 199 mg/dL 07/30/2024 11:17 AM [facility] Comment:Supplemental ranges: <140 mg/dL before meals <180 mg/dL all other times of the day. Blood CAPILLARY BLOOD / Unknown 07/30/2024 11:17 AM EST 07/30/2024 11:17 AM EST Aubree Silverio MD POINT OF CARE TEST ORDERABLES Performing Organization Address City/State/[facility] Co de Phone Number [facility] [place] [address] * (ABNORMAL) Blood Gas, Arterial POC (07/30/2024 8:16 AM EST) pH, Arterial 7.44 7.35 - 7.45 07/30/2024 8:17 AM [facility] PCO2, Arterial 29(L) 35 - 45 mmHg 07/30/2024 8:17 AM [facility] PO2, Arterial 109(H) 85 - 104 mmHg 07/30/2024 8:17 AM [facility] Bicarbonate, Arterial 19.4(L) 20.0 - 26.0 mmol/L 07/30/2024 8:17 AM [facility] Base Excess, Arterial -4.7(L) -3.0 - 3.0 mmol/L 07/30/2024 8:17 AM [facility] Hemoglobin, Arterial 12.2(L) 13.7 - 16.5 g/dL 07/30/2024 8:17 AM [facility] Oxyhemoglobin, Arterial 97.1(H) 94.0 - 97.0 % 07/30/2024 8:17 AM [facility] Carboxyhemoglob in, Arterial 1.0 % 07/30/2024 8:17 AM [facility] Comment: Nonsmokers: 0.5-1.5% COHB ?? Smokers: Variable ??but usually less than 10% ?? Toxic: 20-30% COHB ?? Lethal: Greater than 60% COHB Methemoglobin, Arterial 0.1 <=1.5 % 07/30/2024 8:17 AM [facility] Sodium, Arterial 132(L) 135 - 145 mmol/L 07/30/2024 8:17 AM [facility] Potassium, Arterial 3.9 3.5 - 5.0 mmol/L 07/30/2024 8:17 AM [facility] Chloride, Arterial 105 98 - 107 mmol/L 07/30/2024 8:17 AM [facility] Lactate, Arterial 1.2 0.5 - 2.2 mmol/L 07/30/2024 8:17 AM [facility] Fraction of Inspired Oxygen 21 % 07/30/2024 8:17 AM [facility] PF Ratio 519 Ratio 07/30/2024 8:17 AM [facility] Comment:PF ratio calculated using the non-temperature corrected pO2 result. IONIZED CALCIUM, ARTERIAL 1.15 1.15 - 1.33 mmol/L 07/30/2024 8:17 AM [facility] Blood ARTERIAL BLOOD / Unknown 07/30/2024 8:16 AM EST 07/30/2024 8:17 AM EST Aubree Silverio MD POINT OF CARE TEST ORDERABLES [facility] [place] [address] * (ABNORMAL) Troponin - Single (07/30/2024 8:09 [...] troponin value can be found in the [facility] Laboratory Test Catalog Troponin - [email or web address] Reference: Fourth [place] Definition of Myocardial Infarction. Journal of the [place] [employer] 2018;72:4561-1909 Blood VENOUS BLOOD SPECIMEN / Unknown Venipuncture / Unknown 07/30/2024 8:09 AM EST 07/30/2024 8:26 AM EST Aubree Silverio MD CHEMISTRY ORDERABL ES [facility] [place] [address] * POC, GLUCOSE (07/30/2024 7:40 AM EST) [...] TEST ORDERABLES [facility] [place] [address] * (ABNORMAL) CBC (with Diff) (07/30/2024 2:11 AM EST) White Blood Cell 11.25(H) 4.00 - 9.50 x10(3)/mc L 07/30/2024 2:33 AM [facility] Red Blood Cell 4.50(L) 4.58 - 5.54 x10(6)/mc L 07/30/2024 2:33 AM [facility] Hemoglobin 12.2(L) 13.7 - 16.5 g/dL 07/30/2024 2:33 AM [facility] Hematocrit 37.1(L) 40.5 - 48.5 % 07/30/2024 2:33 AM [facility] Mean Cell Volume 82.4(L) 82.9 - 93.1 fL 07/30/2024 2:33 AM [facility] Mean Cell Hemoglobin 27.1(L) 27.5 - 32.1 pg 07/30/2024 2:33 AM [facility] Mean Cell Hemoglobin Concentration 32.9 32.0 - 35.7 g/dL 07/30/2024 2:33 AM [facility] Platelet 166 145 - 357 x10(3)/mc L 07/30/2024 2:33 AM [facility] Mean Platelet Volume 10.6 7.6 - 12.9 fL 07/30/2024 2:33 AM [facility] RDW Standard Deviation 44.6 36.0 - 45.0 fL 07/30/2024 2:33 AM [facility] RDW coefficient of variation 14.6(H) 11.4 - 13.8 % 07/30/2024 2:33 AM [facility] NRBC% auto 0.0 % 07/30/2024 2:33 AM [facility] NRBC Absolute <0.01 <0.01 x10(3)/mc L 07/30/2024 2:33 AM [facility] Neutrophil % 88.9 % 07/30/2024 2:33 AM [facility] Neutrophil Absolute (ANC) - Automated 10.00(H) 1.70 - 6.10 x10(3)/mc L 07/30/2024 2:33 AM [facility] Lymph % 5.1 % 07/30/2024 2:33 AM [facility] Lymph Absolute 0.57(L) 0.90 - 3.20 x10(3)/mc L 07/30/2024 2:33 AM [facility] Monocyte % 5.4 % 07/30/2024 2:33 AM [facility] Monocyte Absolute 0.61 0.30 - 0.90 x10(3)/mc L 07/30/2024 2:33 AM [facility] Eos % 0.0 % 07/30/2024 2:33 AM [facility] Eos Absolute <0.04 0.00 - 0.40 x10(3)/mc L 07/30/2024 2:33 AM [facility] Basophil % 0.2 % 07/30/2024 2:33 AM [facility] Baso Absolute <0.04 0.00 - 0.10 x10(3)/mc L 07/30/2024 2:33 AM [facility] Immature Gran % 0.4 % 2:33 AM [facility] Immature Gran Absolute 0.05(H) 0.00 - 0.04 x10(3)/mc L 07/30/2024 2:33 AM [facility] Blood VENOUS BLOOD SPECIMEN / Unknown Venipuncture / Unknown 07/30/2024 2:11 AM EST 07/30/2024 2:22 AM EST Bridgette Stauffer MD HEMATOLOGY ORDERABLE S [facility] [place] [address] * Magnesium (07/30/2024 2:11 AM EST) Magnesium 1.01 0.69 - 1.07 mMol/L 07/30/2024 2:51 AM [facility] Blood VENOUS BLOOD SPECIMEN / Unknown Venipuncture / Unknown 07/30/2024 2:11 AM EST 07/30/2024 2:22 AM EST Bridgette Stauffer MD CHEMISTRY ORDERABLES Performing Organization Address City/[facility]/ZIP Co de Phone Number [facility] [place] [address] * (ABNORMAL) Basic Metabolic Panel (07/30/2024 2:11 AM EST) Pathologist [facility] Glucose 190 65 - 199 mg/dL 07/30/2024 2:51 AM [facility] Comment:Glucose Concentratio n >=200 mg/dL plus symptoms is consistent with Diabetes Mellitus. Blood Urea Nitrogen 15 10 - 20 mg/dL 07/30/2024 2:51 AM [facility] Creatinine 0.88 0.80 - 1.50 mg/dL 07/30/2024 2:51 AM [facility] Sodium 135 135 - 145 mMol/L 07/30/2024 2:51 AM [facility] Potassium 4.9 3.5 - 5.0 mMol/L 07/30/2024 2:51 AM [facility] Chloride 105 98 - 107 mMol/L 07/30/2024 2:51 AM [facility] Carbon Dioxide 19(L) 22 - 31 mMol/L 07/30/2024 2:51 AM [facility] Anion Gap 11 5 - [...] CHEMISTRY ORDERABLES [facility] [place] [address] * (ABNORMAL) Cooximetry, POC (07/30/2024 1:00 AM EST) pO2, Coox 28 mmHg 07/30/2024 1:03 AM EST [facility] Hemoglobin, Coox 12.7(L) 13.7 - 16.5 g/dL 07/30/2024 1:03 AM EST [facility] Oxyhemoglobin, Coox 54.9 % 07/30/2024 1:03 AM [facility] Carboxyhemoglo bin, Coox 1.0 % 07/30/2024 1:03 AM [facility] Comment: Nonsmokers: 0.5-1.5% COHB ?? Smokers: Variable ??but usually less than 10% ?? Toxic: 20-30% COHB ?? Lethal: Greater than 60% COHB Methemoglobin, Coox 0.0 <=1.5 % 07/30/2024 1:03 AM [facility] Blood (Mixed Venous) 07/30/2024 1:00 AM EST 07/30/2024 1:03 AM EST Aubree Silverio MD POINT OF CARE TEST ORDERABLES Performing Organization Address City/State/[facility] Co de Phone Number [facility] [place] [address] * (ABNORMAL) Blood Gas, Arterial POC (07/30/2024 12:57 AM EST) pH, Arterial 7.38 7.35 - 7.45 07/30/2024 12:58 AM [facility] PCO2, Arterial 34(L) 35 - 45 mmHg 07/30/2024 12:58 AM [facility] PO2, Arterial 141(H) 85 - 104 mmHg 07/30/2024 12:58 AM [facility] Bicarbonate, Arterial 19.5(L) 20.0 - 26.0 mmol/L 07/30/2024 12:58 AM [facility] Base Excess, Arterial -5.6(L) -3.0 - 3.0 mmol/L 07/30/2024 12:58 AM [facility] Hemoglobin, Arterial 13.0(L) 13.7 - 16.5 g/dL 07/30/2024 12:58 AM [facility] Oxyhemoglobin, Arterial 98.4(H) 94.0 - 97.0 % 07/30/2024 12:58 AM [facility] Carboxyhemoglobin , Arterial 0.4 % 07/30/2024 12:58 AM [facility] Comment: Nonsmokers: 0.5-1.5% COHB ?? Smokers: Variable ??but usually less than 10% ?? Toxic: 20-30% COHB ?? Lethal: Greater than 60% COHB Methemoglobin, Arterial 0.1 <=1.5 % 07/30/2024 12:58 AM [facility] Sodium, Arterial 130(L) 135 - 145 mmol/L 07/30/2024 12:58 AM [facility] Potassium, Arterial 4.5 3.5 - 5.0 mmol/L 07/30/2024 12:58 AM [facility] Chloride, Arterial 104 98 - 107 mmol/L 07/30/2024 12:58 AM [facility] Lactate, Arterial 1.3 0.5 - 2.2 mmol/L 07/30/2024 12:58 AM [facility] Flow Rate 2.0 L/min 07/30/2024 12:58 AM [facility] IONIZED CALCIUM, ARTERIAL 1.12(L) 1.15 - 1.33 mmol/L 07/30/2024 12:58 AM [facility] Glucose, Arterial 184 65 - 199 mg/dL 07/30/2024 12:58 AM [facility] Comment:Glucose Concentratio n >=200 mg/dL plus symptoms is consistent with Diabetes Mellitus. Blood ARTERIAL BLOOD / Unknown 07/30/2024 12:57 AM EST 07/30/2024 12:58 AM EST Aubree Silverio MD POINT OF CARE TEST ORDERABLES [facility] [place] [address] * (ABNORMAL) Troponin - Single (07/29/2024 10:31 PM EST) Troponin-T, High Sensitivity >10,000(H ) <=22 ng/L 07/29/2024 11:03 PM [facility] Comment: This patient's troponin T [...] troponin value can be found in the [facility] Laboratory Test Catalog Troponin - [email or web address] [email or web address]/catalogs/565/[email or web address] Reference: Fourth Rexford Definition of Myocardial Infarction. Journal of the [place] College [employer] 2018;72:5097-3715 Blood VENOUS BLOOD SPECIMEN / Unknown Venipuncture / Unknown 07/29/2024 10:31 PM EST 07/29/2024 10:36 PM EST Yrn Ward MD CHEMISTRY ORDERABL ES Performing Organization Address City/[facility]/ZIP Co de Phone Number [facility] [place] [address] * Potassium (07/29/2024 8:11 PM EST) Pathologist [facility] Potassium 4.1 3.5 - 5.0 mMol/L 07/29/2024 8:52 PM EST [facility] Blood VENOUS BLOOD SPECIMEN / Unknown Venipuncture / Unknown 07/29/2024 8:11 PM EST 07/29/2024 8:16 PM EST Aubree Silverio MD CHEMISTRY ORDERABL ES [facility] [place] [address] * (ABNORMAL) Troponin - Single (07/29/2024 8:11 [...] troponin value can be found in the [facility] Laboratory Test Catalog Troponin - [email or web address]/catalogs/[email or web address] Reference: Fourth Rexford Definition of Myocardial Infarction. Journal of the [place] College of [employer]iology 2018;72:5840-8440 Blood VENOUS BLOOD SPECIMEN / Unknown Venipuncture / Unknown 07/29/2024 8:11 PM EST 07/29/2024 8:16 PM EST Aubree Silverio MD CHEMISTRY ORDERABL ES Performing Organization Address City/State/[facility] Co de Phone Number [facility] [place] [address] * (ABNORMAL) Phosphorus (07/29/2024 8:11 PM EST) Phosphorus 2.1(L) 2.5 - 4.5 mg/dL 07/29/2024 8:52 PM EST [facility] Blood VENOUS BLOOD SPECIMEN / Unknown Venipuncture / Unknown 07/29/2024 8:11 PM EST 07/29/2024 8:16 PM EST Aubree Silverio MD CHEMISTRY ORDERABL ES Performing Organization Address City/State/[facility] Co de Phone Number [facility] [place] [address] * POC, GLUCOSE (07/29/2024 8:09 PM EST) [...] ORDERABLES Performing Organization Address [facility] Co de Phone Number [facility] [place] [address] * ABORH RECHECK (07/29/2024 6:43 PM EST) ABORH Recheck AB POSITIVE 07/29/2024 10:13 PM EST [facility] Blood VENOUS BLOOD SPECIMEN / Unknown Venipuncture / Unknown 07/29/2024 6:43 PM EST 07/29/2024 7:15 PM EST Aubree Silverio MD BLOOD BANK LAB ORD ERABLES Performing Organization Address [facility] Co de Phone Number [facility] [place] [address] * POC, GLUCOSE (07/29/2024 5:57 PM EST) Glucometer, POC 166 65 - 199 mg/dL 07/29/2024 5:57 PM EST [facility] Comment:Supplemental ranges: <140 mg/dL before meals <180 mg/dL all other times of the day. Blood CAPILLARY BLOOD / Unknown 07/29/2024 5:57 PM EST 07/29/2024 5:57 PM EST Aubree Silverio MD POINT OF CARE TEST ORDERABLES [facility] [place] [address] * Type and screen ([facility]/JONG/MAGALIE) (07/29/2024 5:56 PM EST) [facility] ABORH Type AB POSITIVE 07/29/2024 9:44 PM EST [facility] PATIENT HISTORY Not Found 07/29/2024 9:44 PM EST [facility] Expires at [id number] on: 08/01/2024 07/29/2024 9:44 PM EST [facility] ANTIBODY SCREEN AUTOMATED Negative 07/29/2024 9:44 PM EST [facility] T&S only valid at [facility] 07/29/2024 9:44 PM EST [facility] Blood VENOUS BLOOD SPECIMEN / Unknown Venipuncture / Unknown 07/29/2024 5:56 PM EST 07/29/2024 6:07 PM EST Narrative [facility] - 07/29/2024 9:44 PM EST This Type and Screen result is only valid at the [facility] Aubree Silverio MD BLOOD BANK LAB ORD ERABLES Performing Organization Address City/[facility]/ZIP Co de Phone Number [facility] [place] [address] * (ABNORMAL) Troponin - Single (07/29/2024 4:52 PM EST) [facility] Troponin-T, High Sensitivity >10,000(H ) <=22 ng/L [...] troponin value can be found in the [facility] Test Catalog Troponin - [email or web address]/catalogs/[email or web address] Reference: Fourth Rexford Definition of Myocardial Infarction. Journal of the [place] College of Cardiology 2018;72:8056-1879 Blood VENOUS BLOOD SPECIMEN / Unknown Venipuncture / Unknown 07/29/2024 4:52 PM EST 07/29/2024 4:57 PM EST Aubree Silverio MD CHEMISTRY ORDERABL ES Performing Organization Address [facility]/ZIP Co de Phone Number [facility] [place] [address] * EKG 12 Lead (07/29/2024 4:21 PM EST) Ventricular rate 72 BPM MUSE SYSTEM Atrial Rate 72 BPM MUSE SYSTEM P-R Interval 168 ms MUSE SYSTEM QRS Duration 82 ms MUSE SYSTEM Q-T Interval 392 ms MUSE SYSTEM QTC Calculated (Bezet) 429 ms MUSE SYSTEM Calculated P [place] 71 degrees MUSE SYSTEM Calculated R [place] 77 degrees MUSE SYSTEM Calculated T [place] 28 degrees MUSE SYSTEM INTERPRETATION Sinus rhythm with Premature supraventricular complexes and Occasional Premature ventricular complexes Low voltage QRS 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) Lateral injury pattern ACUTE [place] / STEMI Abnormal ECG When compared with ECG of 29-JUL-2024 13:43, (unconfirmed) Serial changes of evolving Anteroseptal infarct Present Confirmed by MD Marcus, Roverto (1963) on 07/31/2024 5:30:06 AM MUSE SYSTEM 07/29/2024 4:21 PM EST 07/31/2024 5:30 AM EST Aubree Silverio MD ECG ORDERABLES Performing Organization Address City/[facility]/ZIP Co de Phone Number MUSE SYSTEM * (ABNORMAL) Blood Gas, Arterial POC (07/29/2024 4:21 PM EST) pH, Arterial 7.37 7.35 - 7.45 07/29/2024 4:22 PM [facility] PCO2, Arterial 36 35 - 45 mmHg 07/29/2024 4:22 PM [facility] PO2, Arterial 71(L) 85 - 104 mmHg 07/29/2024 4:22 PM [facility] Bicarbonate, Arterial 20.4 20.0 - 26.0 mmol/L 07/29/2024 4:22 PM [facility] Base Excess, Arterial -4.8(L) -3.0 - 3.0 mmol/L 07/29/2024 4:22 PM [facility] Hemoglobin, Arterial 12.2(L) 13.7 - 16.5 g/dL 07/29/2024 4:22 PM [facility] Oxyhemoglobin, Arterial 93.8(L) 94.0 - 97.0 % 07/29/2024 4:22 PM [facility] Carboxyhemoglobin , Arterial 0.5 % 07/29/2024 4:22 PM [facility] Comment: Nonsmokers: 0.5-1.5% COHB ?? Smokers: Variable ??but usually less than 10% ?? Toxic: 20-30% COHB ?? Lethal: Greater than 60% COHB Methemoglobin, Arterial 0.3 <=1.5 % 07/29/2024 4:22 PM [facility] Sodium, Arterial 134(L) 135 - 145 mmol/L 07/29/2024 4:22 PM [facility] Potassium, Arterial 4.2 3.5 - 5.0 mmol/L 07/29/2024 4:22 PM [facility] Chloride, Arterial 107 98 - 107 mmol/L 07/29/2024 4:22 PM [facility] Lactate, Arterial 1.5 0.5 - 2.2 mmol/L 07/29/2024 4:22 PM [facility] Fraction of Inspired Oxygen 21 % 07/29/2024 4:22 PM [facility] PF Ratio 338 Ratio 07/29/2024 4:22 PM [facility] Comment:PF ratio calculated using the non-temperature corrected pO2 result. IONIZED CALCIUM, ARTERIAL 1.12(L) 1.15 - 1.33 mmol/L 07/29/2024 4:22 PM [facility] Glucose, Arterial 181 65 - 199 mg/dL 07/29/2024 4:22 PM [facility] Comment:Glucose Concentratio n >=200 mg/dL plus symptoms is consistent with Diabetes Mellitus. Blood ARTERIAL BLOOD / Unknown 07/29/2024 4:21 PM EST 07/29/2024 4:22 PM EST Aubree Silverio MD POINT OF CARE TEST ORDERABLES Performing Organization Address City/[facility]/ZIP Co de Phone Number [facility] [place] [address] * POC, GLUCOSE (07/29/2024 4:19 PM EST) Glucometer, POC 185 65 - 199 mg/dL 07/29/2024 4:19 PM [facility] Comment:Supplemental ranges: <140 mg/dL before meals <180 mg/dL all other times of the day. Blood CAPILLARY BLOOD / Unknown 07/29/2024 4:19 PM EST 07/29/2024 4:19 PM EST Aubree Silverio MD POINT OF CARE TEST ORDERABLES [facility] [place] [address] * Blood culture (07/29/2024 4:08 PM EST) Blood Culture No growth at 120 hours 08/03/2024 5:01 PM EST [facility] Blood VENOUS BLOOD SPECIMEN / Unknown Venipuncture / Unknown 07/29/2024 4:08 PM EST 07/29/2024 4:15 PM EST Aubree Silverio MD MICROBIOLOGY - BLO OD ORDERABLES Performing Organization Address [facility] Co de Phone Number [facility] [place] [address] * Blood culture (07/29/2024 4:08 PM EST) Blood Culture No growth at 120 hours 08/03/2024 5:01 PM EST [facility] Blood VENOUS BLOOD SPECIMEN / Unknown Venipuncture / Unknown 07/29/2024 4:08 PM EST 07/29/2024 4:26 PM EST Aubree Silverio MD MICROBIOLOGY - BLO OD ORDERABLES Performing Organization Address [facility] de Phone Number [facility] [place] [address] * XR Chest One View (07/29/2024 2:30 PM EST) WORKSTATION ID [id number] DH RAD Anatomical Region Laterality Modality Chest [...] have questions please contact the health care coordination manager that requested your imaging first. ? Electronically signed by: Chris Candelaria MD, [facility] ([phone]), at 07/29/2024 3:21 PM Narrative 07/29/2024 3:21 [...] who have questions please contactthe health care coordination manager that requested your imaging first. Electronically signed by: Chris Candelaria MD, [facility]([phone]), at 07/29/2024 3:21 PM Vahe Marvin MD IMG DX ORDERABLES * (ABNORMAL) APTT (07/29/2024 2:03 PM EST) Partial Thromboplastin Time >160(HHH) 25 - 37 sec 07/29/2024 2:56 PM EST [facility] Blood VENOUS BLOOD SPECIMEN / Unknown Venipuncture / Unknown 07/29/2024 2:03 PM EST 07/29/2024 2:13 PM EST Vahe Marvin MD HEMATOLOGY ORDERABLE S Performing Organization Address City/[facility]/ZIP Co de Phone Number [facility] [place] [address] * (ABNORMAL) Prothrombin Time (07/29/2024 2:03 PM [...] S Performing Organization Address [facility] Co de Phone Number [facility] [place] [address] * CRP, acute inflammation (07/29/2024 2:03 PM EST) C-Reactive Protein <3.0 <=4.9 mg/L 07/29/2024 2:52 PM EST [facility] Blood VENOUS BLOOD SPECIMEN / Unknown Venipuncture / Unknown 07/29/2024 2:03 PM EST 07/29/2024 2:14 PM EST Vahe Marvin MD CHEMISTRY ORDERABLES Performing Organization Address City/[facility]/ZIP Co de Phone Number [facility] [place] [address] * Lipid Panel (Reflex Direct LDL) (07/29/2024 2:03 PM EST) Cholesterol, Total 133 mg/dL 07/29/2024 2:52 PM [facility] Comment: Desirable: < 200 mg/dL Borderline High: 200 - 239 mg/dL High: > or = 240 mg/dL Triglyceride 45 mg/dL 07/29/2024 2:52 PM [facility] Comment: Normal: <150 mg/dL Borderline High: 150-199 mg/dL High: 200-499 mg/dL Very High: > or =500 mg/dL HDL Cholesterol 58 mg/dL 2:52 PM [facility] Comment:Males: High Risk: <4 0 mg/dL LDL Cholesterol 64 mg/dL 4 2:52 PM [facility] Comment: Desirable: <100 mg/dL Above Desirable: 100-129 mg/dL Borderline High: 130-159 mg/dL High: 160-189 mg/dL Very High: > or =190 mg/dL Note: LDL calculation updated to the NIH LDL formula as of 04/15/2024 Non-HDL Cholesterol 75 mg/dL 07/29/2024 2:52 PM [facility] Comment: Desirable: <130 mg/dL Above Desirable: 130-159 mg/dL Borderline High: 160-189 mg/dL High: 190-219 mg/dL Very High: > or = 220 mg/dL Blood VENOUS BLOOD SPECIMEN / Unknown Venipuncture / Unknown 07/29/2024 2:03 PM EST 07/29/2024 2:14 PM EST [facility] - 07/29/2024 2:52 PM [...] CHEMISTRY ORDERABLES [facility] [place] [address] * TSH Mower (07/29/2024 2:03 PM EST) Thyroid Stimulating Hormone 0.70 0.27 - 4.20 mcIU/mL 07/29/2024 2:52 PM EST [facility] Blood VENOUS BLOOD SPECIMEN / Unknown Venipuncture / Unknown 07/29/2024 2:03 PM EST 07/29/2024 2:14 PM EST Vahe Marvin MD CHEMISTRY ORDERABLES [facility] [place] [address] * Hemoglobin A1c (07/29/2024 2:03 PM EST) Pathologist [facility] Hemoglobin A1c 5.3 4.3 - 5.6 [...] red blood cell turnover may not be quality control representative of glycemic control. Reference Interval: 4.3 [...] 2:03 PM EST 07/29/2024 2:14 PM EST [facility] - 07/29/2024 2:41 PM EST Estimated average glucose (eAG) is calculated from the equation described in: Quinten ALVES, Rikki J, Ren[place] R, et al. ??Translating the A1C assay into estimated average glucose values. ??Diabetes Care 2008:31(8):5062-4060. Additional resources are available on the ADA website (diabetes.org). Vahe Marvin MD CHEMISTRY ORDERABLES [facility] [place] [address] * (ABNORMAL) CBC (with Diff) (07/29/2024 2:03 PM EST) White Blood Cell 19.50(H) 4.00 - 9.50 x10(3)/mc L 07/29/2024 2:18 PM EST [facility] Red Blood Cell 4.81 4.58 - 5.54 x10(6)/mc L 07/29/2024 2:18 PM [facility] Hemoglobin 13.1(L) 13.7 - 16.5 g/dL 07/29/2024 2:18 PM EST [facility] Hematocrit 40.1(L) 40.5 - 48.5 % 07/29/2024 2:18 PM EST [facility] Mean Cell Volume 83.4 82.9 - 93.1 fL 07/29/2024 2:18 PM EST [facility] Mean Cell Hemoglobin 27.2(L) 27.5 - 32.1 pg 07/29/2024 2:18 PM [facility] Mean Cell Hemoglobin Concentration 32.7 32.0 - 35.7 g/dL 07/29/2024 2:18 PM EST [facility] Platelet 236 145 - 357 x10(3)/mc L 07/29/2024 2:18 PM [facility] Mean Platelet Volume 10.6 7.6 - 12.9 fL 07/29/2024 2:18 PM EST [facility] RDW Standard Deviation 43.7 36.0 - 45.0 fL 07/29/2024 2:18 PM [facility] RDW coefficient of variation 14.3(H) 11.4 - 13.8 % 07/29/2024 2:18 PM [facility] NRBC% auto 0.0 % 07/29/2024 2:18 PM [facility] NRBC Absolute <0.01 <0.01 x10(3)/mc L 07/29/2024 2:18 PM [facility] Neutrophil % 93.6 % 07/29/2024 2:18 PM [facility] Neutrophil Absolute (ANC) - Automated 18.28(H) 1.70 - 6.10 x10(3)/mc L 07/29/2024 2:18 PM [facility] Lymph % 2.7 % 07/29/2024 2:18 PM [facility] Lymph Absolute 0.52(L) 0.90 - 3.20 x10(3)/mc L 07/29/2024 2:18 PM [facility] Monocyte % 2.9 % 07/29/2024 2:18 PM [facility] Monocyte Absolute 0.56 0.30 - 0.90 x10(3)/mc L 07/29/2024 2:18 PM [facility] Eos % 0.0 % 07/29/2024 2:18 PM [facility] Eos Absolute <0.04 0.00 - 0.40 x10(3)/mc L 07/29/2024 2:18 PM [facility] Basophil % 0.3 % 07/29/2024 2:18 PM [facility] Baso Absolute 0.05 0.00 - 0.10 x10(3)/mc L 07/29/2024 2:18 PM [facility] Immature Gran % 0.5 % 2:18 PM [facility] Immature Gran Absolute 0.09(H) 0.00 - 0.04 x10(3)/mc L 07/29/2024 2:18 PM [facility] Blood VENOUS BLOOD SPECIMEN / Unknown Venipuncture / Unknown 07/29/2024 2:03 PM EST 07/29/2024 2:13 PM EST Vahe Marvin MD HEMATOLOGY ORDERABLE S [facility] [place] [address] * Phosphorus (07/29/2024 2:03 PM EST) Phosphorus 2.5 2.5 - 4.5 mg/dL 07/29/2024 2:52 PM EST [facility] Blood VENOUS BLOOD SPECIMEN / Unknown Venipuncture / Unknown 07/29/2024 2:03 PM EST 07/29/2024 2:14 PM EST Vahe Marvin MD CHEMISTRY ORDERABLES Performing Organization Address City/[facility]/ZIP Co de Phone Number [facility] [place] [address] * Magnesium (07/29/2024 2:03 PM EST) Pathologist [facility] Magnesium 0.70 0.69 - 1.07 mMol/L 07/29/2024 2:52 PM EST [facility] Blood VENOUS BLOOD SPECIMEN / Unknown Venipuncture / Unknown 07/29/2024 2:03 PM EST 07/29/2024 2:14 PM EST Vahe Marvin MD CHEMISTRY ORDERABLES [facility] [place] [address] * (ABNORMAL) Comprehensive metabolic panel (07/29/2024 2:03 PM EST) Glucose 243(H) 65 - 199 mg/dL 07/29/2024 3:11 PM EST [facility] Comment:Glucose Concentratio n >=200 mg/dL plus symptoms is consistent with Diabetes Mellitus. Blood Urea Nitrogen 13 10 - 20 mg/dL 07/29/2024 3:11 PM EST [facility] Creatinine 0.88 0.80 - 1.50 mg/dL 07/29/2024 3:11 PM [facility] Sodium 138 135 - 145 mMol/L 07/29/2024 3:11 PM [facility] Potassium 3.6 3.5 - 5.0 mMol/L 07/29/2024 3:11 PM [facility] Chloride 104 98 - 107 mMol/L 07/29/2024 3:11 PM [facility] Carbon Dioxide 19(L) 22 - 31 mMol/L 07/29/2024 3:11 PM [facility] Anion Gap 15 5 - 15 mMol/L 07/29/2024 3:11 PM [facility] Calcium 8.0(L) 8.5 - 10.5 mg/dL 07/29/2024 3:11 PM [facility] Protein, Total 6.0(L) 6.1 - 8.0 g/dL 07/29/2024 3:11 PM [facility] Albumin 3.6 3.2 - 5.2 g/dL 07/29/2024 3:11 PM [facility] Aspartate Aminotransferase 07/29/2024 3:11 PM [facility] Comment:Unable to report due to hemolysis. Alanine Aminotransferase 56(H) 0 - 55 unit/L 07/29/2024 3:11 PM [facility] Alkaline Phosphatase 58 40 - 130 unit/L 07/29/2024 3:11 PM [facility] Bilirubin, Total 0.5 <=1.3 mg/dL 07/29/2024 3:11 PM [facility] Est Glomerular Filtration Rate - Male 91 mL/min/1. 73 m?? 07/29/2024 3:11 PM [facility] Comment: This patient's estimated GFR [...] CHEMISTRY ORDERABLES [facility] [place] [address] * (ABNORMAL) Troponin - Single (07/29/2024 2:03 PM EST) Pathologist [facility] Troponin-T, High Sensitivity >10,000(H ) <=22 [...] troponin value can be found in the [facility] Laboratory Test Catalog Troponin - https://[email or web address].org/catalogs/565/[email or web address]/[email or web address] Reference: Fourth Rexford Definition of Myocardial Infarction. Journal of the [place] College [employer] 2018;72:5017-1395 Blood VENOUS BLOOD SPECIMEN / Unknown Venipuncture / Unknown 07/29/2024 2:03 PM EST 07/29/2024 2:14 PM EST Vahe Marvin MD CHEMISTRY ORDERABLES [facility] [place] [address] * (ABNORMAL) Blood Gas, Venous POC (07/29/2024 2:01 PM EST) pH, Venous 7.30(L) 7.32 - 7.42 07/29/2024 2:02 PM EST [facility] PCO2, Venous 42 38 - 58 mmHg 07/29/2024 2:02 PM [facility] PO2, Venous 39 16 - 65 mmHg 07/29/2024 2:02 PM [facility] Bicarbonate, Venous 20.1(L) 22 - 31 mmol/L 07/29/2024 2:02 PM [facility] Base Excess, Venous -6.4(L) 1.9 - 4.5 mmol/L 07/29/2024 2:02 PM [facility] Hemoglobin, Venous 14.2 13.7 - 16.5 g/dL 07/29/2024 2:02 PM [facility] Oxyhemoglobin, Venous 69.3 % 07/29/2024 2:02 PM [facility] Carboxyhemoglobin , Venous 0.8 % 07/29/2024 2:02 PM [facility] Comment: Nonsmokers: 0.5-1.5% COHB ?? Smokers: Variable ??but usually less than 10% ?? Toxic: 20-30% COHB ?? Lethal: Greater than 60% COHB Methemoglobin, Venous 0.3 <=1.5 % 07/29/2024 2:02 PM [facility] Sodium, Venous 137 135 - 145 mmol/L 07/29/2024 2:02 PM [facility] Potassium, Venous 3.6 3.5 - 5.0 mmol/L 07/29/2024 2:02 PM [facility] Chloride, Venous 103 98 - [...] City/State/[facility] Co de Phone Number [facility] [place] [address] * CARDIAC CATHETERIZATION (07/29/2024 1:20 PM EST) Anatomical Region Laterality Modality Other Narrative 07/29/2024 2:02 PM EST ?[facility] ? Cardiac Catheterization/Intervention Report ? Patient Name: Korey Montoya Driss ? Procedure Date: 07/29/2024 ? A #: [id number] ? Primary Physician: Vahe Marvin ? Case #: [id number] ? File Name: [id number] ? Catheterization Order Number: [id number] ? [facility] ? Final Report [place], [place] ? Patient Name: ? Korey P. Montoya ?ID#: ?[id number] ? : ?1950 ? Procedure Date: ? [...] procedure was Emergent. The indication for ?the lab head visit is ACS less than or equal [...] 3.5 guiding catheter and a 3.5 Fr [place] [facility] [address] ??20 Mhz using ?Manual pullback. ??Imaging [...] A premounted 3.[address] x [address] [place] [facility] (OLW) was deployed ? with a maximum inflation [...] atmospheres. ??A premounted 3.00 x [address] [facility] (LOW) ? was deployed with a maximum [...] dose administered prior to arrival in the lab head. ?Recommended anti-platelet/anti-thrombotic regimen: ?Start aspirin 81 mg daily now and continue for 12 months then stop. ?Start clopidogrel 75 mg daily now and continue for indefinitely. ?These recommendations are made at the time of the intervention. Patient ?and provider preferences or a changing clinical situation may require ?modification of this regimen. Consult [facility] Interventional Cardiology for ?questions. ?The 1 year [...] able ?to start weaning his inotropes/vasopressors. A Paul Colette catheter was ?placed demonstrating improvement in his hemodynamics and the impella site ?was perclosed and hemostatic gauze was applied with excellent result. ?WIll transfer to the [facility] for further management. ?The attending physician was present for the entire procedure. ?Dr. Vahe Marvin M.D. was present during the moderate sedation ?intraservice time as documented by the sedation nurse. ??Case time = 01:26. ?Dr. Vahe Marvin M.D. performed the coronary angiography, left heart ?catheterization, IVUS # coronary, stent insertion-coronary, oximetry, ABG, ?transthoracic echo , ventricular assist device insertion, right heart ?catheterization, Paul (flow directed cath) insertion, access site ?angiography, vascular ultrasound, venous line / sheath insert and vascular ?closure device. ? Vahe Marvin M.D. ? Electronically Signed by: Vahe Marvin M.D. ? Report Finalized: 07/29/2024 ??13:55 ? Report Last Ammended: 07/30/2024 ??10:15 ? Procedure Note Vahe Marvin MD - 07/30/2024 [facility] Cardiac Catheterization/Intervention Report Patient Name: Korey Montoya Procedure Date: 07/29/2024 A #: [id number] Primary Physician: Vahe Marvin Case #: [id number] File Name: [id number] Catheterization Order Number: [id number] [facility] FinalReport [place], [place] Patient Name: Korey Montoya ID#:[id number] :1950 Procedure Date: July 29, 2024 Case [...] diagnostic procedure was Emergent. Theindication for the lab head visit is ACS less than or equal [...] 3.5 guiding catheter and a 3.5 Fr [place] [facility] [address] 20 Mhzusing Manual pullback. Imaging was [...] The priority for the procedure was Emergent.The [facility] indication for the procedure was STEMI-Immediate [...] The lesion was predilated with a 2.00mm [id number] MM balloon with a maximum inflation pressure of 12atmospheres. A premounted 3.00 x [address] [place] [facility] (LOW) wasdeployed with a maximum inflation pressure [...] A premounted 3.00 x [address] [place] [facility](LOW) was deployed with a maximum inflation pressure [...] dose administered prior to arrival in the lab head. Recommended anti-platelet/anti-thrombotic regimen: Start aspirin 81 mg daily now and continue for 12 months then stop. Start clopidogrel 75 mg daily now and continue for indefinitely. These recommendations are made at the time of the intervention.Patient and provider preferences or a changing clinical situation mayrequire modification of this regimen. Consult [facility] Interventional Cardiologyfor questions. The 1 year bleeding [...] wereable to start weaning his inotropes/vasopressors. A Paul Colette catheterwas placed demonstrating improvement in his [...] ventricular assist device insertion, right heart catheterization, Paul (flow directed cath) insertion, access site angiography, [...] 3.5 - 5.0 mmol/L 07/30/2024 7:30 AM [facility] pH, POC 7.33(L) 7.35 - 7.45 07/30/2024 7:30 AM [facility] Ionized Calcium, POC 1.13(L) 1.15 - 1.33 mmol/L 07/30/2024 7:30 AM [facility] pCO2, POC 38 35 - 45 mmHg 07/30/2024 7:30 AM [facility] pO2, POC 94 85 - 104 mmHg 07/30/2024 7:30 AM [facility] Base Excess, POC -6.0(L) -3.0 - 3.0 mmol/L 07/30/2024 7:30 AM [facility] Hematocrit, POC 39.0(L) 40.5 - 48.5 %PCV 07/30/2024 7:30 AM [facility] Hemoglobin, POC 13.3(L) 13.7 - 16.5 g/dL 07/30/2024 7:30 AM [facility] Comment:The calculation of h emoglobin from hematocrit assumes a normal MCHC. Bicarbonate, POC 19.8(L) 20.0 - 26.0 mmol/L 07/30/2024 7:30 AM [facility] Carbon Dioxide, POC 21(L) 22 - 31 mmol/L 07/30/2024 7:30 AM [facility] Blood VENOUS BLOOD SPECIMEN / Unknown 07/29/2024 12:46 PM EST 07/30/2024 7:30 AM EST Vahe Marvin MD POINT OF CARE TEST O RDERABLES [facility] [place] [address] * (ABNORMAL) BLOOD GAS, POC (07/29/2024 12:12 PM EST) Sodium, POC 135 135 - 145 mmol/L 07/30/2024 7:30 AM [facility] Potassium, POC 3.8 3.5 - 5.0 mmol/L 07/30/2024 7:30 AM [facility] pH, POC 7.27(LLL) 7.35 - 7.45 07/30/2024 7:30 AM [facility] Ionized Calcium, POC 1.14(L) 1.15 - 1.33 mmol/L 07/30/2024 7:30 AM [facility] pCO2, POC 43 35 - 45 mmHg 07/30/2024 7:30 AM [facility] pO2, POC 131(H) 85 - 104 mmHg 07/30/2024 7:30 AM [facility] Base Excess, POC -7.0(L) -3.0 - 3.0 mmol/L 07/30/2024 7:30 AM [facility] Hematocrit, POC 36.0(L) 40.5 - 48.5 %PCV 07/30/2024 7:30 AM [facility] Hemoglobin, POC 12.2(L) 13.7 - 16.5 g/dL 07/30/2024 7:30 AM [facility] Comment:The calculation of h emoglobin from hematocrit assumes a normal MCHC. Bicarbonate, POC 19.7(L) 20.0 - 26.0 mmol/L 07/30/2024 7:30 AM [facility] Carbon Dioxide, POC 21(L) 22 - 31 mmol/L 07/30/2024 7:30 AM [facility] Blood VENOUS BLOOD SPECIMEN / Unknown 07/29/2024 12:12 PM EST 07/30/2024 7:30 AM EST Vahe Marvin MD POINT OF CARE TEST O RDERABLES [facility] [place] [address] documented in this encounter Visit Diagnoses Not [...] Routine documented in this encounter Care Teams Ornamental Ironworker Helper Relationship Specialty Start Date End Date Alexia Mtz, CRIMINAL PSYCHOLOGIST [address] [place] [address] PCP - General Family Medicine 07/30/24 documented as of this encounter
--- OUTSIDE RECORDS SUMMARY | 2024-08-27 10:10 | XMS_ITS | Encounter Summary ---
[place] [address] Care Team Providers Care Drill Sergeant Name Role Phone Alexia Mtz REGISTERED VETERINARY TECHNICIAN Primary Care Provider [phone] Reason for Visit * Auth/Cert (Routine) Specialty Diagnoses / Procedures Referred By Theodore t Referred To Contact Diagnoses STEMI (ST elevation myocardial infarction) STEMI Procedures ER Vahe Lopez MD [facility] [place] [address] [facility] Referral ID Status Reason Start Date Expiration Date Visits Re quested Visits Authorized [id number] 1 1 Encounter Details Date Type Department Care Team (Late st Contact Info) Description 07/31/2024 4:45 PM EST Anesthesia Event [place] [address] Venkatesh Mauricio MD [facility] [place] [address] Anesthesia Record Procedure Summary Procedure Name Responsible [...] Proximal, Right; Femoral; Venous 07/29/24 1213 by rAvin Morfin RN 08/01/24 1421 by Marivel English RN PA Catheter 07/29/24; 1300; miguel dard thermodilution catheter; Right; femoral vein; hemodynamic monitoring; Placed in medical laboratory technicians; 08/01/24; 1420 07/29/24 1300 by Silvia Wan RN 08/01/24 1420 by Marivel English RN PIV 07/29/24; 1300; gokw-rld-[id number] catheter system; 18 gauge; basilic vein (medial [...] David ORTEGA; 08/01/24; 1420 07/29/24 1800 by Ayr Malone RN 08/01/24 1420 by Marivel English [...] = 0.6 oz pur e alcohol) [facility] Utilities Answer Date Recorded In the [...] any time in the past 12 m [facility], were you homeless or living in a senior care (including now)? No 07/30/2024 IPV Inpatient Questions [...] 10:00 AM EST Office Visit Cardiology at [address] [address] Mushtaq Murphy APRN documented as of this encounter Visit Diagnoses Not on filedocumented in this encounter Care Teams Drill Sergeant Relationship Specialty Start Date End Date Alexia Mtz, [address] [place] [address] PCP - General Family Medicine 07/30/24 documented as of this encounter
--- OUTSIDE RECORDS SUMMARY | 2024-08-27 10:10 | XMS_ITS | Encounter Summary ---
Author Organization [facility] Address [facility] [place] [address] Care Team Providers Care Maintenance Representative Name Role Phone De BequeAlexia shell Shun ALCALA Primary Care Provider Reason for Referral * Consultation (Routine) - Authorized Specialty Diagnoses / Procedures Referred By Contac t Referred To Contact Cardiology Diagnoses HFrEF (heart failure with reduced ejection fraction) [facility] S/P D/C acute HFrEF Alex Small MD [facility] [place] [address] Mushtaq Murphy APRN [facility] [place] [place] [place] [address] Referral ID Status Reason Start Date Expiration Date Visits Requested Visits Authorized [id number] Authorized Consult, Test & Treat 08/04/2024 08/04/2025 1 1 * Consultation (Routine) - Authorized Specialty Diagnoses / Procedures Referred By Contac t Referred To Contact Cardiology Diagnoses ST elevation myocardial infarction involving left anterior descending (LAD) coronary artery Yrn Ward MD [facility] [place] [address] Cardiac Rehab, [address] [place] [address] Referral ID Status Reason Start Date Expiration Date Visits Requested Visits Authorized [id number] Authorized Consult, Test & Treat 08/04/2024 01/31/2025 36 36 Reason for Visit * Auth/Cert (Routine) Specialty Diagnoses / Procedures Referred By Contac t Referred To Contact Diagnoses STEMI (ST elevation myocardial infarction) STEMI Procedures ER IPI Vahe Marvin MD [facility] [place] [address] [facility] Referral ID Status Reason Start Date Expiration Date Visits Re quested Visits Authorized [id number] 1 1 Encounter Details Date Type Department Care Team (Latest Contact Info) Description 07/29/2024 11:45 AM EST - 08/04/2024 5:00 PM EST Hospital Encounter Cardiovascular [place] [phone] Vahe Marvin MD [facility] [place] [address] Jay Silverio MD [facility] [place] [address] Krystal Parker MD [facility] [place] [address] Bridgette Stauffer MD [facility] [place] [address] Yrn Ward MD [facility] [place] [address] Alex Small MD [facility] [place] [address] ST elevation myocardial infarction involving left anterior descending (LAD) coronary artery; HFrEF (heart failure with reduced ejection fraction) Discharge Disposition: Home Social History Tobacco Use Types Packs/Day Years Used Date Smoking Tobacco: Former Cigarettes Smokeless Tobacco: Never Alcohol Use Standard Drinks/Week Comments Not Currently 0 (1 standard drink = 0.6 oz pur e alcohol) [facility] Utilities Answer Date Recorded In the [...] any time in the past 12 m [facility], were you homeless or living in a skilled nursing (including now)? No 07/30/2024 IPV Inpatient Questions [...] please contact your inpatient physician through the [facility] Rn Gynecology . Issues afterhours and on weekends will [...] EKG. Patient transferred via air ambulance to [facility] on 07/29 for LHC and LOW to [...] EKG. Was transferred via air ambulance to [facility] for further management and LHC demonstrated 100% occlusion. No significant RCA, LMCA, or LCX disease. LOW placed in LAD with some residual distal disease meriting placement of overlapping distal stent. TTE showed apical akinesis and inferior hypokinesis with EF 20%. RHC showed elevated filling pressures. Impella placed and P-level 6 at time of transfer to [facility]. CI initially 1.97, improved to 2.2 [...] the next year. Access was via right ASSISTANT READING TEACHER and this sitewas clean, dry and intact [...] for Chest pain. Replaces: nitroGLYcerin 400 mcg/spray Lagrange, Non-Aerosol 0.4 mg Quantity: 90 tablet Refills: [...] Refills: 0 STOPPED Medications nitroGLYcerin 400 mcg/spray Lagrange, Non-Aerosol Commonly known as: NITROLINGUAL Replaced by: [...] of one year. After this time, your screwdown operator will determine if you need to continue [...] away. Stay on the phone. The emergency blacktop paver operator will tell you what to do. [...] appointments: During 8am-5pm Tuesday through Tuesday call [phone] to speak with a nurse in the cardiology clinic All other times call [phone] and ask to speak to the handy worker non destructive testing inspector. Follow up Appointments: PCP Alexia Mtz, ENVIRONMENTAL SCIENCE INSTRUCTOR [phone]. Please call to establish a follow up appointment within 1-2 weeks of discharge. Cardiology. Referral to heart failure has been sent. General Instructions None Future Appointments and Orders Future Orders Complete By Expires Referral to Cardiac Rehab [CLP323 Custom] As directed Process Instructions: If no progress note charted, please enter Clinical details in comments. Scheduling Instructions: Questions: My question or request is: STEMI, PCI- cardiac rehab at [facility] Referral to Cardiology [REF12 [...] of one year. After this time, your screwdown operator will determine if you need to continue [...] away. Stay on the phone. The emergency blacktop paver operator will tell you what to do. [...] appointments: During 8am-5pm Tuesday through Tuesday call [phone] to speak with a nurse in the cardiology clinic All other times call [phone] and ask to speak to the handy worker non destructive testing inspector. Follow up Appointments: PCP Alexia Mtz, ENVIRONMENTAL SCIENCE INSTRUCTOR [phone]. Please call to establish a follow up [...] EKG. Patient transferred via air ambulance to [facility] on 07/29 for LHC and LOW to [facility] for 100% occlusion Social History: Pt lives with his in a 1 level home with 2 NAOMI. 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 [...] Total time: 35 (tef) minutes Time IN/OUT: 3630-0647 ZAIDA DUBOSE PT Pager: [phone] Physical Therapy Inpatient Rehabilitation Department * Yrn Ward MD - 08/03/2024 10:38 AM EST CV HOSPITALIST 2 - [facility] DAILY PROGRESS NOTE Page [phone] to reach a provider 04/04 Admit Date: [...] or before 29-JUL-2024) Lateral injury pattern ACUTE CO / STEMI Abnormal ECG When compared with [...] Compared to the overnight study by the non destructive testing inspector fellow the impella position is stable. The [...] the telemetry from the last 24 hours. [facility] Assessment: ASSESSMENT: Korey Montoya is a 74 y.o. male w/ PMH of hypertension, HLD, and BPH who presents for chief concern of chest pain after being found to have ST elevations on EKG. Patient transferred via air ambulance to [facility] on 07/29 for LHC and LOW to [...] be determined OT: PCP Alexia Mtz, FREDRICK [phone] * Zaida Dubose, PT - 08/02/2024 2:08 PM EST Physical Therapy Evaluation Patient profile: Korey Montoya is a 74 y.o. male w/ PMH of hypertension, HLD, and BPH who presents for chief concern of chest pain after being found to have ST elevations on EKG. Patient transferred via air ambulance to [facility] on 07/29 for LHC and LOW to LAD for 100% occlusion Social History: Pt lives with his in a 1 level home with 2 NAOMI. 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 [...] Total time: 37 (eval) minutes Time IN/OUT: 1552-2234 ZAIDA DUBOSE PT Pager: [phone] Physical Therapy Inpatient Rehabilitation Department * Gagan [...] EKG. Patient transferred via air ambulance to [facility] on 07/29 for LHC and LOW to LAD for 100% occlusion. TTE showed apical akinesis and inferior hypokinesis with EF 20%. RHC showed elevated filling pressures. Impella placed and P-level 6 at time of transfer to [facility]. CI initially 1.97, improved to 2.2 [...] PCP: Alexia Mtz APRN PCP phone number: [phone] Date of Admission: 07/29/2024 ( Hospital Day 4 days ) Attending:Bridgette Stauffer MD ID: Korey Montoya is a 74 y.o. male w/ PMH of hypertension, HLD, and BPH on Hospital Day4 for chief concern of chest pain after being found to have ST elevations on EKG. Patient transferred via air ambulance to [facility] on 07/29 for LHC and LOW to [...] 07/29/24 1621 PHART 7.48* 7.44 7.38 7.37 [id number] 29* 29* 34* 36 PO2ART 71* 109* 141* 71* UVM3OGA 20.6 19.4* 19.5* 20.4 VBG (Venous Blood Gas) Recent Labs 07/29/24 1401 PHVEN 7.30* PO2VEN 39 LUO4KPY 20.1* Mixed Venous Sat No results for input(s): Q5PQWC9 in the last 168 hours. Objective: Vitals [...] 07/29/24 1621 PHART 7.48* 7.44 7.38 7.37 BFI0VSJ 29* 29* 34* 36 PO2ART 71* 109* 141* 71* XLZ9TGM 20.6 19.4* 19.5* 20.4 VBG (Venous Blood Gas) Recent Labs 07/29/24 1401 PHVEN 7.30* PO2VEN 39 NIW9GZP 20.1* Mixed Venous Sat No results for input(s): V2MWWU2 in the last 168 hours. Microbiology: Microbiology Results (Last 30 days) Procedure Component Value Units Date/Time Blood culture [[id number]] Collected: 07/29/241607 Lab Status: Preliminary result Specimen: Blood, Venous Updated: 08/01/241700 Blood Culture No growth at 72 hours Blood culture [[id number]] Collected: 07/29/241607 Lab Status: Preliminary result Specimen: Blood, Venous Updated: 08/01/241700 Blood Culture No growth at 72 hours Imaging: Results for orders placed or performed during the hospital encounter of 07/29/24 XR Chest One View (Exam End: 07/29/2024 2:30 PM) Result Value WORKSTATION ID [id number] Impression 1. No pulmonary edema. 2. No pleural effusion. 3. No pneumothorax. Thank you for letting us participate in the care of this patient. If you are a health care provider and have any questions regarding this report, please contact the number below. For patients who have questions please contact the health career professional that requested your imaging first. ( 07/30/24) [...] Compared to the overnight study by the non destructive testing inspector fellow the impella position is stable. The [...] dextrose OR glucagon Assessment & Plan: Korey Montoay is a 74 y.o. male w/ PMH of hypertension, HLD, and BPH on HD# 4 for chief concern of chest pain after being found to have ST elevations on EKG. Patient transferred via air ambulance to [facility] on 07/29 for LHC and LOW to [...] Susannah Ornelas MD Internal Medicine, PGY-1 Cardiology, [facility] 08/02/24 12:45 PM CARDIOLOGY STAFF NOTE [...] today). Transfer to floor. Krystal Parker, MD, [facility] Staff Stone Carriage Operator case monitor * Gagan Catherine MD - 08/01/2024 11:12 [...] EKG. Patient transferred via air ambulance to [facility] on 07/29 for LHC and LOW to [...] PCP: Alexia Mtz APRN PCP phone number: [phone] Date of Admission: 07/29/2024 ( Hospital Day 3 days ) Attending:Krystal Parker MD ID: Korey Montoya is a 74 y.o. male w/ PMH of hypertension, HLD, and BPH on Hospital Day3 for chief concern of chest pain after being found to have ST elevations on EKG. Patient transferred via air ambulance to [facility] on 07/29 for LHC and LOW to [...] 07/29/24 1621 PHART 7.48* 7.44 7.38 7.37 DBW2VTE 29* 29* 34* 36 PO2ART 71* 109* 141* 71* LUZ5KXQ 20.6 19.4* 19.5* 20.4 VBG (Venous Blood Gas) Recent Labs 07/29/24 1401 PHVEN 7.30* PO2VEN 39 FZJ4ETB 20.1* Mixed Venous Sat No results for input(s): A0YCAC2 in the last 168 hours. PA Catheter [...] 07/29/24 1621 PHART 7.48* 7.44 7.38 7.37 PFD4KQL 29* 29* 34* 36 PO2ART 71* 109* 141* 71* MCO4POB 20.6 19.4* 19.5* 20.4 VBG (Venous Blood Gas) Recent Labs 07/29/24 1401 PHVEN 7.30* PO2VEN 39 PLM8HVI 20.1* Mixed Venous Sat No results for input(s): B9VRYY1 in the last 168 hours. Microbiology: Microbiology Results (Last 30 days) Procedure Component Value Units Date/Time Blood culture [[id number]] Collected: 07/29/241607 Lab Status: Preliminary result Specimen: Blood, Venous Updated: 07/31/241700 Blood Culture No growth at 48 hours Blood culture [[id number]] Collected: 07/29/241607 Lab Status: Preliminary result Specimen: Blood, Venous Updated: 07/31/241700 Blood Culture No growth at 48 hours Imaging: Results for orders placed or performed during the hospital encounter of 07/29/24 XR Chest One View (Exam End: 07/29/2024 2:30 PM) Result Value WORKSTATION ID [id number] Impression 1. No pulmonary edema. 2. No pleural effusion. 3. No pneumothorax. Thank you for letting us participate in the care of this patient. If you are a health care provider and have any questions regarding this report, please contact the number below. For patients who have questions please contact the health career professional that requested your imaging first. ( 07/30/24) [...] Compared to the overnight study by the non destructive testing inspector fellow the impella position is stable. The [...] EKG. Patient transferred via air ambulance to [facility] on 07/29 for LHC and LOW to [...] Susannah Ornelas MD Internal Medicine, PGY-1 Cardiology, [facility] 08/01/24 7:13 AM CARDIOLOGY STAFF NOTE [...] ofGDMT. Discussed with him; questions answered. Krystal aPrker MD, [facility] Staff Stone Carriage Operator case monitor * Krystal Parker MD - 07/31/2024 1:06 [...] ILL WITH THESE DIAGNOSES BEING MANAGED BY [facility] TEAM: # Anterior STEMI, late-presenting # [...] EKG. Patient transferred via air ambulance to [facility] on 07/29 for LHC and LOW to LAD for 100% occlusion. TTE showed apical akinesis and inferior hypokinesis with EF 20%. RHC showed elevated filling pressures. Impella placed and P-level 6 at time of transfer to [facility]. CI initially 1.97, improved to 2.2 After impella. Received about 3 L of fluid during procedural course. Patient initially required norepinephrine 30, epinephrine 10, and vasopressin 0.04 for hemodynamic support, which was weaned upon arrival to [facility] to norepinephrine 20and levo 0.04 N [...] PCP: Alexia Mtz APRN PCP phone number: [phone] Date of Admission: 07/29/2024 ( Hospital Day 2 days ) Attending:Krystal Parker MD ID: Korey Montoya is a 74 y.o. male w/ PMH of hypertension, HLD, and BPH on Hospital Day2 for chief concern of chest pain after being found to have ST elevations on EKG. Patient transferred via air ambulance to [facility] on 07/29 for LHC and LOW to [...] 0057 07/29/24 1621 PHART 7.44 7.38 7.37 GNI8BBL 29* 34* 36 PO2ART 109* 141* 71* CLO6NMV 19.4* 19.5* 20.4 VBG (Venous Blood Gas) Recent Labs 07/29/24 1401 PHVEN 7.30* PO2VEN 39 CUI4KLO 20.1* Mixed Venous Sat No results for input(s): Q2WTAE4 in the last 168 hours. PA Catheter [...] 0057 07/29/24 1621 PHART 7.44 7.38 7.37 WCR6IKI 29* 34* 36 PO2ART 109* 141* 71* NOS2XUL 19.4* 19.5* 20.4 VBG (Venous Blood Gas) Recent Labs 07/29/24 1401 PHVEN 7.30* PO2VEN 39 VWC2PBZ 20.1* Mixed Venous Sat No results for input(s): O7TUXS2 in the last 168 hours. Microbiology: Microbiology Results (Last 30 days) Procedure Component Value Units Date/Time Blood culture [[id number]] Collected: 07/29/241607 Lab Status: Preliminary result Specimen: Blood, Venous Updated: 07/30/24 170 Blood Culture No Growth at 18-24 hrs. Blood culture [[id number]] Collected: 07/29/241607 Lab Status: Preliminary result Specimen: Blood, Venous Updated: 07/30/241700 Blood Culture No Growth at 18-24 hrs. Imaging: Results for orders placed or performed during the hospital encounter of 07/29/24 XR Chest One View (Exam End: 07/29/2024 2:30 PM) Result Value WORKSTATION ID [id number] Impression 1. No pulmonary edema. 2. No pleural effusion. 3. No pneumothorax. Thank you for letting us participate in the care of this patient. If you are a health care provider and have any questions regarding this report, please contact the number below. For patients who have questions please contact the health career professional that requested your imaging first. ( 07/30/24) [...] Compared to the overnight study by the non destructive testing inspector fellow the impella position is stable. The [...] EKG. Patient transferred via air ambulance to [facility] on 07/29 for LHC and LOW to [...] work to optimize volume status while continuing prwihzf-cjpuiu-zspmpaemiu therapies at this time. Obtain comprehensive TTE. [...] EKG. Patient transferred via air ambulance to [facility] on 07/29 for LHC and LOW to LAD for 100% occlusion. TTE showed apical akinesis and inferior hypokinesis with EF 20%. RHC showed elevated filling pressures. Impella placed and P-level 6 at time of transfer to [facility]. CI initially 1.97, improved to 2.2 After impella. Received about 3 L of fluid during procedural course. Patient initially required norepinephrine 30, epinephrine 10, and vasopressin 0.04 for hemodynamic support, which was weaned upon arrival to [facility] to norepinephrine 20and levo 0.04 N [...] PCP: Yoel Artis APRN PCP phone number: [phone] Date of Admission: 07/29/2024 ( Hospital Day 1 day ) Attending:Jay Silverio MD ID: Korey Montoya is a 74 y.o. male w/ PMH of hypertension, HLD, and BPH on Hospital Day1 for chief concern of chest pain after being found to have ST elevations on EKG. Patient transferred via air ambulance to [facility] on 07/29 for LHC and LOW to [...] 0057 07/29/24 1621 PHART 7.44 7.38 7.37 PWZ6YYK 29* 34* 36 PO2ART 109* 141* 71* GES2ZBJ 19.4* 19.5* 20.4 VBG (Venous Blood Gas) Recent Labs 07/29/24 1401 PHVEN 7.30* PO2VEN 39 XMX5FDI 20.1* Lactate ( Last 12 hours) 1.3 >> 1.2 Mixed Venous Sat No results for input(s): S2VPHU5 in the last 168 hours. PA Catheter [...] 0057 07/29/24 1621 PHART 7.44 7.38 7.37 OTI4ZSS 29* 34* 36 PO2ART 109* 141* 71* PTZ4KES 19.4* 19.5* 20.4 VBG (Venous Blood Gas) Recent Labs 07/29/24 1401 PHVEN 7.30* PO2VEN 39 IUF9SQP 20.1* Mixed Venous Sat No results for input(s): T5SBDN9 in the last 168 hours. Microbiology: Microbiology Results (Last 30 days) Procedure Component Value Units Date/Time Blood culture [[id number]] Collected: 07/29/24 1608 Lab Status: In process Specimen: Blood, Venous Updated: 07/29/24 162 Blood culture [[id number]] Collected: 07/29/241607 Lab Status: In process Specimen: Blood, Venous Updated: 07/29/24 161 Imaging: Results for orders placed or performed during the hospital encounter of 07/29/24 XR Chest One View (Exam End: 07/29/2024 2:30 PM) Result Value WORKSTATION ID [id number] Impression 1. No pulmonary edema. 2. No pleural effusion. 3. No pneumothorax. Thank you for letting us participate in the care of this patient. If you are a health care provider and have any questions regarding this report, please contact the number below. For patients who have questions please contact the health career professional that requested your imaging first. Medications Scheduled [...] EKG. Patient transferred via air ambulance to [facility] on 07/29 for LHC and LOW to [...] EKG. Patient transferred via air ambulance to [facility] on 07/29 for LHC and LOW to [...] EKG. Was transferred via air ambulance to [facility] for further management and [facility] [...] (WRVU 4.57) performed by Brandan Mcgovern MD [facility] ENDOSCOPY Significant Family History: Family History [...] mouth. Past Week nitroGLYcerin (NITROLINGUAL) 400 mcg/spray Lagrange, Non-Aerosol 1 spray to anus for proctalgia [...] 3.5 guiding catheter and a 3.[address] 20 Mhz using Manual pullback. Imaging [...] priority for the procedure was Emergent. The [facility] the procedure was STEMI-Immediate PCI [...] of the LAD. This was a de merelne lesion. According to the ACC/AHA classification system, [...] atmospheres. A premounted 3.00 x 22 mm [place] (LOW) was deployed with a maximum inflation [...] A premounted 3.00 x 08 mm [place] (LOW) was deployed with a maximum inflation [...] a limited study performed by a fellow non destructive testing inspector to evaluate for cardiogenic shock with impella [...] Compared to the overnight study by the non destructive testing inspector fellow the impella position is stable. The [...] EKG. Patient transferred via air ambulance to [facility] on 07/29 for LHC and LOW to [...] PCP: Yoel Artis APRN PCP phone number: [phone] Date of Admission: 07/29/2024 ( Hospital Day 0 days ) Attending:Jay Silverio MD ID: Korey Montoya is a 74 y.o. male w/ PMH of hypertension, HLD, and BPH who presents for chief concern of chest pain after being found to have ST elevations on EKG. Patient transferred via air ambulance to [facility] on 07/29 for LHC and LOW to LAD for 100% occlusion. HPI: Korey Montoya is a 74 y.o. male w/ PMH of hypertension, HLD, and BPH who presents for chief concern of chest pain after being found to have ST elevations on EKG. Patient transferred via air ambulance to [facility] on 07/29 for LHC and LOW to [...] EKG. Was transferred via air ambulance to [facility] for further management and LHC demonstrated 100% [...] (WRVU 4.57) performed by Brandan Mcgovern MD [facility] ENDOSCOPY Family History Family History Problem [...] Blood Gas) No results for input(s): PHART, MIN6QRP, PO2ART, OFY6ZCH, LACTATEVEN, AJW4YSP, PFRATIOART2 in the last 168 hours. VBG (Venous Blood Gas) Recent Labs 07/29/24 1401 PHVEN 7.30* PO2VEN 39 PNA1FTV 20.1* Mixed Venous Sat No results for input(s): J9MZPE6 in the last 168 hours. PA Catheter [...] Blood Gas) No results for input(s): PHART, FUZ2ANM, PO2ART, XVH4HUV, LACTATEVEN, YWU1YMS, PFRATIOART2 in the last 168 hours. VBG (Venous Blood Gas) Recent Labs 07/29/24 1401 PHVEN 7.30* PO2VEN 39 LGU2CKV 20.1* Mixed Venous Sat No results for input(s): T7XJZP8 in the last 168 hours. Microbiology: Microbiology [...] EKG. Patient transferred via air ambulance to [facility] on 07/29 for LHC. Found to have 100% occlusion of LAD for which he underwent LOW to LAD.Otherwise no other significant vessel disease. Fahad is currently hemodynamically tenuous but improving upon admission to [facility], requiring hemodynamic support with norepinephrine and vasopressin at time of admission along with mechanical support with Impella device. Reassuringly, he demonstrates decreasing pressor requirements since admission to [facility], with epinephrine completely weaned. He does [...] Bernardo Amos MD Internal Medicine, PGY-3 Cardiology, [facility] 07/29/24 3:14 PM Cardiology Attending Note [...] MD, FACP, FACC Section of Cardiovascular Medicine [facility] Registry Nursehot dog vender [facility] [employer] [facility] This patient meets or has met [...] to the planned procedure. Hand Hygiene: The bus or truck garage mechanic did perform hand hygiene prior to arterial [...] ease. Good wave form. Ivan Hernandez MD Retail Account Executive Associated attestation - Rolando Yeh MD - [...] Fahad was quite active prior to his CO. 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 Given parameters for home exercise. He follows a heart healthy diet and is not overweight. His lipids are wnl. Participation in an outpatient cardiac rehabilitation program at [facility] was discussed. Patient agrees [...] MEDICARE Payor: AAR MANAGED MEDICARE / Plan: [facility]IC[facility] COMPLETE / Product Type: *No [...] of Discharge: 08/04/2024 Gaby Wong RN, CM [phone] * Initial Assessments - Char Meza OT - 08/03/2024 10:00 AM EST Occupational Therapy Evaluation Patient profile: Korey Montoya is a 74 y.o. male admitted on 07/29/2024 w/ PMH of hypertension, HLD, and BPH who presents for chief concern of chest pain after being found to have ST elevations onEKG. Patient transferred via air ambulance to [facility] on 07/29 for LHC and LOW to LAD for 100% occlusion. Past Medical History: Diagnosis Date ADHD HLD (hyperlipidemia) HTN (hypertension) Tremor Past Surgical History: Procedure Laterality Date HAND SURGERY PRO COLONOSCOPY, REMV LESN, SNARE N/A 08/30/2023 COLONOSCOPY, POLYPECTOMY, REMOVAL LESION BY SNARE (WRVU 4.57) performed by Brandan Mcgovern MD [facility] ENDOSCOPY Social History: Patient lives with [...] evaluation only Total Minutes, Occupational Therapy: 14 ([id number] (evaluation)) 2017 OT Evaluation Code Rationale: Diagnosis [...] and measurable assessment of functional outcome. Pager: [phone] Char Meza OT 08/03/2024 Occupational Therapy Rehabilitation [...] Procedure Note: Patient Name: Korey Montoya : [id number] MR#: [id number] Case Date: 07/31/2024 Rn Gynecology: Surgeons and Role: * Maldonado Luis MD - Primary * Quinten Charles PA - Physician Runner Man Preoperative diagnosis: shock, impella Postoperative diagnosis: * same * Procedure(s) performed: Impella removal form right ASSISTANT READING TEACHER Access: Right ASSISTANT READING TEACHER A time-out was conducted prior to the [...] Admitted From: Transfer from another hospital Location: [facility] Reason for Hospitalization: chest pain Past medical History: Past Medical History: Diagnosis Date ADHD HLD (hyperlipidemia) HTN (hypertension) Tremor Hospitalizations Within the Past 30 Days: no previous admission in last 30 days Current Decision-Making Capacity: Self If AD's have not been completed the following surrogate would be surrogate decision maker per [place] surrogate decision making law. (Only good for 180 days) Any patient receiving care in [place] must abide by [place] law. The hierarchy for surrogate decision making [...] (i) The agent with financial power of city attorney or a conservator appointed in [...] were you homeless or living in a skilled nursing (including now)?: No In the past 12 months has the [employer], gas, oil, or water [employer] threatened to shut off services in your [...] it) Home Address confirmed as: Mailing Address: [facility] [address] [place] [address] Physical Address: [address], [place] Social & Family Supports: All names [...] points: Addiction likely Health/Prescription Coverage: Primary Insurance: [facility] [employer] MED[employer] Payor: [facility] [employer] MED[employer]ARE / Plan: [facility] [employer] MED[employer]ARE COMPLETE / Product Type: *No Product type* / Secondary Insurance: N/A ; Prescription Coverage: Yes Preferred Pharmacy: [address] [address] [place] Status: Patient is a : No Primary Care Provider confirmed: Alexia Mtz, FREDRICK [phone] Patient/Caregiver Goals of Treatment: return home Potential [...] 07/29/2024 6:25 PM EST Pt arrived from 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 CXR and EKG completed. Impella [...] Procedure Note: Patient Name: Korey Montoya : [id number] MR#: [id number] Case Date: 07/29/2024 Rn Gynecology: Surgeons and Role: * Vahe Marvin MD - Primary * Susannah Watts PA - Physician Runner Man Preoperative diagnosis: STEMI Postoperative diagnosis: * STEMI, LAD Artery * * Cardiogenic Shock * Procedure(s) performed: [facility] Coronary angiogram Stent insertion coronary IVUS coronary Venous line insert RH Amoret Colette Catheter Vascular closure device Ventricular assist [...] x 22 mm to 14 deonna JEISON [place] with LIZ 3 flow. Residual distal disease at distal stent, overlapping distal stent was inserted with 3.0 x 8 mm JEISON [place]. Systolic's in the 80's sustained. Patient re [...] 10:00 AM EST Office Visit Cardiology at [address] [phone] Mushtaq Murphy, ENVIRONMENTAL SCIENCE INSTRUCTOR Scheduled Orders Name Type Priority Associated Diagnoses [...] CBC (with Diff) (08/04/2024 6:08 AM EST) [facility] White Blood Cell 7.27 4.00 - 9.50 x10(3)/mc L 08/04/2024 6:39 AM [facility] Red Blood Cell 4.28(L) 4.58 - 5.54 x10(6)/mc L 08/04/2024 6:39 AM [facility] Hemoglobin 11.6(L) 13.7 - 16.5 g/dL 08/04/2024 6:39 AM [facility] Hematocrit 34.8(L) 40.5 - 48.5 % 08/04/2024 6:39 AM [facility] Mean Cell Volume 81.3(L) 82.9 - 93.1 fL 08/04/2024 6:39 AM [facility] Mean Cell Hemoglobin 27.1(L) 27.5 - 32.1 pg 08/04/2024 6:39 AM [facility] Mean Cell Hemoglobin Concentration 33.3 32.0 - 35.7 g/dL 08/04/2024 6:39 AM [facility] Platelet 178 145 - 357 x10(3)/mc L 08/04/2024 6:39 AM [facility] Mean Platelet Volume 10.6 7.6 - 12.9 fL 08/04/2024 6:39 AM [facility] RDW Standard Deviation 42.0 36.0 - 45.0 fL 08/04/2024 6:39 AM [facility] RDW coefficient of variation 14.3(H) 11.4 - 13.8 % 08/04/2024 6:39 AM [facility] NRBC% auto 0.0 % 08/04/2024 6:39 AM [facility] NRBC Absolute <0.01 <0.01 x10(3)/mc L 08/04/2024 6:39 AM [facility] Neutrophil % 72.1 % 08/04/2024 6:39 AM [facility] Neutrophil Absolute (ANC) - Automated 5.24 1.70 - 6.10 x10(3)/mc L 08/04/2024 6:39 AM [facility] Lymph % 16.8 % 08/04/2024 6:39 AM [facility] Lymph Absolute 1.22 0.90 - 3.20 x10(3)/mc L 08/04/2024 6:39 AM [facility] Monocyte % 8.5 % 08/04/2024 6:39 AM [facility] Monocyte Absolute 0.62 0.30 - 0.90 x10(3)/mc L 08/04/2024 6:39 AM [facility] Eos % 1.9 % 08/04/2024 6:39 AM [facility] Eos Absolute 0.14 0.00 - 0.40 x10(3)/mc L 08/04/2024 6:39 AM [facility] Basophil % 0.4 % 08/04/2024 6:39 AM [facility] Baso Absolute <0.04 0.00 - 0.10 x10(3)/mc L 08/04/2024 6:39 AM [facility] Immature Gran % 0.3 % 6:39 AM [facility] Immature Gran Absolute <0.04 0.00 - 0.04 x10(3)/mc L 08/04/2024 6:39 AM [facility] Blood VENOUS BLOOD SPECIMEN / Unknown Venipuncture / Unknown 08/04/2024 6:08 AM EST 08/04/2024 6:19 AM EST Bridgette Stauffer MD HEMATOLOGY ORDERABLE S [facility] [place] [address] * Magnesium (08/04/2024 6:08 AM EST) Magnesium 0.85 0.69 - 1.07 mMol/L 08/04/2024 7:07 AM [facility] Blood VENOUS BLOOD SPECIMEN / Unknown Venipuncture / Unknown 08/04/2024 6:08 AM EST 08/04/2024 6:19 AM EST Bridgette Stauffer MD CHEMISTRY ORDERABLES [facility] [place] [address] * Basic Metabolic Panel (08/04/2024 6:08 AM EST) Glucose 93 65 - 199 mg/dL 08/04/2024 7:07 AM [facility] Comment:Glucose Concentratio n >=200 mg/dL plus symptoms is consistent with Diabetes Mellitus. Blood Urea Nitrogen 14 10 - 20 mg/dL 08/04/2024 7:07 AM [facility] Creatinine 1.07 0.80 - 1.50 mg/dL 08/04/2024 7:07 AM [facility] Sodium 138 135 - 145 mMol/L 08/04/2024 7:07 AM [facility] Potassium 4.3 3.5 - 5.0 mMol/L 08/04/2024 7:07 AM [facility] Chloride 107 98 - 107 mMol/L 08/04/2024 7:07 AM [facility] Carbon Dioxide 23 22 - 31 mMol/L 08/04/2024 7:07 AM [facility] Anion Gap 8 5 - 15 mMol/L 08/04/2024 7:07 AM [facility] Calcium 8.5 8.5 - 10.5 mg/dL 08/04/2024 7:07 AM [facility] Est Glomerular Filtration Rate - Male 74 mL/min/1. 73 m?? 08/04/2024 7:07 AM [facility] Comment: This patient's estimated GFR [...] AM EST Bridgette Stauffer MD CHEMISTRY ORDERABLES [facility] [address] * (ABNORMAL) CBC (with Diff) (08/03/2024 5:16 AM EST) White Blood Cell 7.85 4.00 - 9.50 x10(3)/mc L 08/03/2024 5:29 AM [facility] Red Blood Cell 4.43(L) 4.58 - 5.54 x10(6)/mc L 08/03/2024 5:29 AM [facility] Hemoglobin 11.8(L) 13.7 - 16.5 g/dL 08/03/2024 5:29 AM [facility] Hematocrit 35.9(L) 40.5 - 48.5 % 08/03/2024 5:29 AM [facility] Mean Cell Volume 81.0(L) 82.9 - 93.1 fL 08/03/2024 5:29 AM [facility] Mean Cell Hemoglobin 26.6(L) 27.5 - 32.1 pg 08/03/2024 5:29 AM [facility] Mean Cell Hemoglobin Concentration 32.9 32.0 - 35.7 g/dL 08/03/2024 5:29 AM [facility] Platelet 142(L) 145 - 357 x10(3)/mc L 08/03/2024 5:29 AM [facility] Mean Platelet Volume 10.5 7.6 - 12.9 fL 08/03/2024 5:29 AM [facility] RDW Standard Deviation 42.5 36.0 - 45.0 fL 08/03/2024 5:29 AM [facility] RDW coefficient of variation 14.2(H) 11.4 - 13.8 % 08/03/2024 5:29 AM [facility] NRBC% auto 0.0 % 08/03/2024 5:29 AM [facility] NRBC Absolute <0.01 <0.01 x10(3)/mc L 08/03/2024 5:29 AM [facility] Neutrophil % 75.2 % 08/03/2024 5:29 AM [facility] Neutrophil Absolute (ANC) - Automated 5.91 1.70 - 6.10 x10(3)/mc L 08/03/2024 5:29 AM [facility] Lymph % 13.4 % 08/03/2024 5:29 AM [facility] Lymph Absolute 1.05 0.90 - 3.20 x10(3)/mc L 08/03/2024 5:29 AM [facility] Monocyte % 9.0 % 08/03/2024 5:29 AM [facility] Monocyte Absolute 0.71 0.30 - 0.90 x10(3)/mc L 08/03/2024 5:29 AM [facility] Eos % 1.7 % 08/03/2024 5:29 AM [facility] Eos Absolute 0.13 0.00 - 0.40 x10(3)/mc L 08/03/2024 5:29 AM [facility] Basophil % 0.4 % 08/03/2024 5:29 AM [facility] Baso Absolute <0.04 0.00 - 0.10 x10(3)/mc L 08/03/2024 5:29 AM [facility] Immature Gran % 0.3 % 5:29 AM [facility] Immature Gran Absolute <0.04 0.00 - 0.04 x10(3)/mc L 08/03/2024 5:29 AM [facility] Blood VENOUS BLOOD SPECIMEN / Unknown Venipuncture / Unknown 08/03/2024 5:16 AM EST 08/03/2024 5:23 AM EST Bridgette Stauffer MD HEMATOLOGY ORDERABLE S [facility] [address] * Magnesium (08/03/2024 5:16 AM EST) Magnesium 0.89 0.69 - 1.07 mMol/L 08/03/2024 5:56 AM [facility] Blood VENOUS BLOOD SPECIMEN / Unknown Venipuncture / Unknown 08/03/2024 5:16 AM EST 08/03/2024 5:23 AM EST Bridgette Stauffer MD CHEMISTRY ORDERABLES [facility] [address] * (ABNORMAL) Basic Metabolic Panel (08/03/2024 5:16 AM EST) Glucose 98 65 - 199 mg/dL 08/03/2024 5:56 AM [facility] Comment:Glucose Concentratio n >=200 mg/dL plus symptoms is consistent with Diabetes Mellitus. Blood Urea Nitrogen 16 10 - 20 mg/dL 08/03/2024 5:56 AM [facility] Creatinine 0.85 0.80 - 1.50 mg/dL 08/03/2024 5:56 AM [facility] Sodium 137 135 - 145 mMol/L 08/03/2024 5:[address] [facility] Potassium 4.5 3.5 - 5.0 mMol/L 08/03/2024 5:56 AM [facility] Chloride 106 98 - 107 mMol/L 08/03/2024 5:56 AM [facility] Carbon Dioxide 21(L) 22 - 31 mMol/L 08/03/2024 5:56 AM [facility] Anion Gap 10 5 - 15 mMol/L 08/03/2024 5:[address] [facility] Calcium 8.3(L) 8.5 - 10.5 mg/dL 08/03/2024 5:56 AM [facility] Est Glomerular Filtration Rate - Male 92 mL/min/1. 73 m?? 08/03/2024 5:56 AM [facility] Comment: This patient's estimated GFR [...] Stauffer MD CHEMISTRY ORDERABLES Performing Organization Address [facility]/ZIP Co de Phone Number [facility] [address] * POC, GLUCOSE (08/02/2024 7:47 AM EST) Glucometer, POC 89 65 - 199 mg/dL 08/02/2024 7:[address] [facility] Comment:Supplemental ranges: <140 mg/dL before meals <180 mg/dL all other times of the day. Blood CAPILLARY BLOOD / Unknown 08/02/2024 7:47 AM EST 08/02/2024 7:47 AM EST Krystal Parker MD POINT OF CARE TEST O RDERABLES Performing Organization Address [facility] Co de Phone Number [facility] [place] [address] * (ABNORMAL) CBC (with Diff) (08/02/2024 4:20 AM EST) White Blood Cell 8.51 4.00 - 9.50 x10(3)/mc L 08/02/2024 4:[address] [facility] Red Blood Cell 4.41(L) 4.58 - 5.54 x10(6)/mc L 08/02/2024 4:[address] [facility] Hemoglobin 12.2(L) 13.7 - 16.5 g/dL 08/02/2024 4:[address] [facility] Hematocrit 35.8(L) 40.5 - 48.5 % 08/02/2024 4:50 AM [facility] Mean Cell Volume 81.2(L) 82.9 - 93.1 fL 08/02/2024 4:50 AM [facility] Mean Cell Hemoglobin 27.7 27.5 - 32.1 pg 08/02/2024 4:50 AM [facility] Mean Cell Hemoglobin Concentration 34.1 32.0 - 35.7 g/dL 08/02/2024 4:50 AM [facility] Platelet 111(L) 145 - 357 x10(3)/mc L 08/02/2024 4:50 AM [facility] Mean Platelet Volume 11.1 7.6 - 12.9 fL 08/02/2024 4:50 AM [facility] RDW Standard Deviation 41.9 36.0 - 45.0 fL 08/02/2024 4:50 AM [facility] RDW coefficient of variation 14.1(H) 11.4 - 13.8 % 08/02/2024 4:50 AM [facility] NRBC% auto 0.0 % 08/02/2024 4:50 AM [facility] NRBC Absolute <0.01 <0.01 x10(3)/mc L 08/02/2024 4:50 AM [facility] Neutrophil % 77.7 % 08/02/2024 4:50 AM [facility] Neutrophil Absolute (ANC) - Automated 6.62(H) 1.70 - 6.10 x10(3)/mc L 08/02/2024 4:50 AM [facility] Lymph % 11.9 % 08/02/2024 4:50 AM [facility] Lymph Absolute 1.01 0.90 - 3.20 x10(3)/mc L 08/02/2024 4:50 AM [facility] Monocyte % 8.2 % 08/02/2024 4:50 AM [facility] Monocyte Absolute 0.70 0.30 - 0.90 x10(3)/mc L 08/02/2024 4:50 AM [facility] Eos % 1.4 % 08/02/2024 4:50 AM [facility] Eos Absolute 0.12 0.00 - 0.40 x10(3)/mc L 08/02/2024 4:50 AM [facility] Basophil % 0.4 % 08/02/2024 4:50 AM [facility] Baso Absolute <0.04 0.00 - 0.10 x10(3)/mc L 08/02/2024 4:50 AM [facility] Immature Gran % 0.4 % 4:50 AM [facility] Immature Gran Absolute <0.04 0.00 - 0.04 x10(3)/mc L 08/02/2024 4:50 AM [facility] Blood VENOUS BLOOD SPECIMEN / Unknown Venipuncture / Unknown 08/02/2024 4:20 AM EST 08/02/2024 4:37 AM EST Bridgette Stauffer MD HEMATOLOGY ORDERABLE S [facility] [place] [address] * Magnesium (08/02/2024 4:20 AM EST) Magnesium 0.79 0.69 - 1.07 mMol/L 08/02/2024 5:[address] [facility] Blood VENOUS BLOOD SPECIMEN / Unknown Venipuncture / Unknown 08/02/2024 4:20 AM EST 08/02/2024 4:37 AM EST Bridgette Stauffer MD CHEMISTRY ORDERABLES [facility] [place] [address] * (ABNORMAL) Basic Metabolic Panel (08/02/2024 4:20 AM EST) Glucose 110 65 - 199 mg/dL 08/02/2024 5:06 AM [facility] Comment:Glucose Concentratio n >=200 mg/dL plus symptoms is consistent with Diabetes Mellitus. Blood Urea Nitrogen 12 10 - 20 mg/dL 08/02/2024 5:06 AM [facility] Creatinine 0.90 0.80 - 1.50 mg/dL 08/02/2024 5:06 AM [facility] Sodium 139 135 - 145 mMol/L 08/02/2024 5:06 AM [facility] Potassium 4.0 3.5 - 5.0 mMol/L 08/02/2024 5:06 AM [facility] Chloride 108(H) 98 - 107 mMol/L 08/02/2024 5:06 AM [facility] Carbon Dioxide 23 22 - 31 mMol/L 08/02/2024 5:06 AM [facility] Anion Gap 8 5 - 15 mMol/L 08/02/2024 5:06 AM [facility] Calcium 8.1(L) 8.5 - 10.5 mg/dL 08/02/2024 5:06 AM [facility] Est Glomerular Filtration Rate - Male 91 mL/min/1. 73 m?? 08/02/2024 5:06 AM [facility] Comment: This patient's estimated GFR [...] Stauffer MD CHEMISTRY ORDERABLES Performing Organization Address [facility] Co de Phone Number [facility] [place] [address] * Potassium (08/01/2024 8:39 PM EST) Potassium 4.0 3.5 - 5.0 mMol/L 08/01/2024 9:[address] [facility] Blood VENOUS BLOOD SPECIMEN / Unknown Venipuncture / Unknown 08/01/2024 8:39 PM EST 08/01/2024 8:51 PM EST Jay Silverio MD CHEMISTRY ORDERABL ES Performing Organization Address [facility] Phone Number [facility] [place] [address] * POC, GLUCOSE (08/01/2024 8:35 PM EST) Glucometer, POC 112 65 - 199 mg/dL 08/01/2024 8:[address] [facility] Comment:Supplemental ranges: <140 mg/dL before meals <180 mg/dL all other times of the day. Blood CAPILLARY BLOOD / Unknown 08/01/2024 8:35 PM EST 08/01/2024 8:36 PM EST Krystal Parker MD POINT OF CARE TEST O RDERABLES Performing Organization Address [facility] Co de Phone Number [facility] [place] [address] * POC, GLUCOSE (08/01/2024 4:55 PM EST) Glucometer, POC 99 65 - 199 mg/dL 08/01/2024 4:[address] [facility] Comment:Supplemental ranges: <140 mg/dL before meals <180 mg/dL all other times of the day. Blood CAPILLARY BLOOD / Unknown 08/01/2024 4:55 PM EST 08/01/2024 4:56 PM EST Krystal Parker MD POINT OF CARE TEST O JOSH Performing Organization Address [facility] Co de Phone Number [facility] [place] [address] * POC, GLUCOSE (08/01/2024 12:42 PM EST) Glucometer, POC 130 65 - 199 mg/dL 08/01/2024 12:[address] [facility] Comment:Supplemental ranges: <140 mg/dL before meals <180 mg/dL all other times of the day. Blood CAPILLARY BLOOD / Unknown 08/01/2024 12:42 PM EST 08/01/2024 12:43 PM EST Krystal Parker MD POINT OF CARE TEST O JOSH Performing Organization Address [facility] Co de Phone Number [facility] [place] [address] * (ABNORMAL) Cooximetry, POC (08/01/2024 10:45 AM EST) pO2, Coox 32 mmHg 08/01/2024 10:48 AM [facility] Hemoglobin, Coox 12.9(L) 13.7 - 16.5 g/dL 08/01/2024 10:[address] [facility] Oxyhemoglobin, Coox 66.7 % 08/01/2024 10:48 AM [facility] Carboxyhemoglo bin, Coox 1.1 % 08/01/2024 10:[address] [facility] Comment: Nonsmokers: 0.5-1.5% COHB ?? Smokers: Variable ??but usually less than 10% ?? Toxic: 20-30% COHB ?? Lethal: Greater than 60% COHB Methemoglobin, Coox 0.3 <=1.5 % 08/01/2024 10:[address] [facility] Blood (Mixed Venous) 08/01/2024 10:45 AM EST 08/01/2024 10:48 AM EST Krystal Parker MD POINT OF CARE TEST O RDERABLES Performing Organization Address [facility] Co de Phone Number [facility] [place] [address] * Potassium (08/01/2024 8:20 AM EST) Potassium 4.0 3.5 - 5.0 mMol/L 08/01/2024 10:[address] [facility] Blood ARTERIAL BLOOD / Unknown Venipuncture / Unknown 08/01/2024 8:20 AM EST 08/01/2024 8:30 AM EST Jay Silverio MD CHEMISTRY ORDERABL ES Performing Organization Address [facility] Co de Phone Number [facility] [place] [address] * POC, GLUCOSE (08/01/2024 7:44 AM EST) Glucometer, POC 86 65 - 199 mg/dL 08/01/2024 7:[address] [facility] Comment:Supplemental ranges: <140 mg/dL before meals <180 mg/dL all other times of the day. Blood CAPILLARY BLOOD / Unknown 08/01/2024 7:44 AM EST 08/01/2024 7:44 AM EST Krystal Parker MD POINT OF CARE TEST O RDERASHAY Performing Organization Address [facility]/ZIP Co de Phone Number [facility] [place] [address] * (ABNORMAL) CBC (with Diff) (08/01/2024 4:18 AM EST) White Blood Cell 8.51 4.00 - 9.50 x10(3)/mc L 08/01/2024 4:[address] [facility] Red Blood Cell 4.12(L) 4.58 - 5.54 x10(6)/mc L 08/01/2024 4:53 AM [facility] Hemoglobin 11.2(L) 13.7 - 16.5 g/dL 08/01/2024 4:53 AM [facility] Hematocrit 33.8(L) 40.5 - 48.5 % 08/01/2024 4:53 AM [facility] Mean Cell Volume 82.0(L) 82.9 - 93.1 fL 08/01/2024 4:53 AM [facility] Mean Cell Hemoglobin 27.2(L) 27.5 - 32.1 pg 08/01/2024 4:53 AM [facility] Mean Cell Hemoglobin Concentration 33.1 32.0 - 35.7 g/dL 08/01/2024 4:53 AM [facility] Platelet 94(L) 145 - 357 x10(3)/mc L 08/01/2024 4:53 AM [facility] Mean Platelet Volume 10.9 7.6 - 12.9 fL 08/01/2024 4:53 AM [facility] RDW Standard Deviation 44.2 36.0 - 45.0 fL 08/01/2024 4:53 AM [facility] RDW coefficient of variation 14.7(H) 11.4 - 13.8 % 08/01/2024 4:53 AM [facility] NRBC% auto 0.0 % 08/01/2024 4:53 AM [facility] NRBC Absolute <0.01 <0.01 x10(3)/mc L 08/01/2024 4:53 AM [facility] Neutrophil % 82.7 % 08/01/2024 4:53 AM [facility] Neutrophil Absolute (ANC) - Automated 7.04(H) 1.70 - 6.10 x10(3)/mc L 08/01/2024 4:53 AM [facility] Lymph % 8.6 % 08/01/2024 4:53 AM [facility] Lymph Absolute 0.73(L) 0.90 - 3.20 x10(3)/mc L 08/01/2024 4:53 AM [facility] Monocyte % 7.6 % 08/01/2024 4:53 AM [facility] Monocyte Absolute 0.65 0.30 - 0.90 x10(3)/mc L 08/01/2024 4:53 AM [facility] Eos % 0.5 % 08/01/2024 4:53 AM [facility] Eos Absolute 0.04 0.00 - 0.40 x10(3)/mc L 08/01/2024 4:53 AM [facility] Basophil % 0.2 % 08/01/2024 4:53 AM [facility] Baso Absolute <0.04 0.00 - 0.10 x10(3)/mc L 08/01/2024 4:53 AM [facility] Immature Gran % 0.4 % 4:53 AM [facility] Immature Gran Absolute <0.04 0.00 - 0.04 x10(3)/mc L 08/01/2024 4:53 AM [facility] Blood VENOUS BLOOD SPECIMEN / Unknown Venipuncture / Unknown 08/01/2024 4:18 AM EST 08/01/2024 4:29 AM EST Bridgette Stauffer MD HEMATOLOGY ORDERABLE [facility] [address] * Magnesium (08/01/2024 4:18 AM EST) Magnesium 0.74 0.69 - 1.07 mMol/L 08/01/2024 5:00 AM [facility] Blood VENOUS BLOOD SPECIMEN / Unknown Venipuncture / Unknown 08/01/2024 4:18 AM EST 08/01/2024 4:29 AM EST Bridgette Stauffer MD CHEMISTRY ORDERABLES [facility] [address] * (ABNORMAL) Basic Metabolic Panel (08/01/2024 4:18 AM EST) Glucose 107 65 - 199 mg/dL 08/01/2024 5:00 AM [facility] Comment:Glucose Concentratio n >=200 mg/dL plus symptoms is consistent with Diabetes Mellitus. Blood Urea Nitrogen 8(L) 10 - 20 mg/dL 08/01/2024 5:00 AM [facility] Creatinine 0.82 0.80 - 1.50 mg/dL 08/01/2024 5:00 AM [facility] Sodium 137 135 - 145 mMol/L 08/01/2024 5:00 AM [facility] Potassium 3.9 3.5 - 5.0 mMol/L 08/01/2024 5:00 AM [facility] Chloride 108(H) 98 - 107 mMol/L 08/01/2024 5:00 AM [facility] Carbon Dioxide 21(L) 22 - 31 mMol/L 08/01/2024 5:00 AM [facility] Anion Gap 8 5 - 15 mMol/L 08/01/2024 5:00 AM [facility] Calcium 7.7(L) 8.5 - 10.5 mg/dL 08/01/2024 5:00 AM [facility] Est Glomerular Filtration Rate - Male 93 mL/min/1. 73 m?? 08/01/2024 5:00 AM [facility] Comment: This patient's estimated GFR [...] Stauffer MD CHEMISTRY ORDERABLES Performing Organization Address [facility] Co de Phone Number [facility] [place] [address] * POC, GLUCOSE (07/31/2024 8:41 PM EST) [facility] Signature Glucometer, POC 73 65 - 199 mg/dL 07/31/2024 8:[address] [facility] Comment:Supplemental ranges: <140 mg/dL before meals <180 mg/dL all other times of the day. Blood CAPILLARY BLOOD / Unknown 07/31/2024 8:41 PM EST 07/31/2024 8:41 PM EST Krystal Parker MD POINT OF CARE TEST O RDERABLES Performing Organization Address [facility] Co de Phone Number [facility] [place] [address] * CARDIAC CATHETERIZATION (07/31/2024 5:53 PM EST) Anatomical Region Laterality Modality Other Narrative 08/01/2024 12:37 PM EST ?[facility] ? Cardiac Catheterization/Intervention Report ? Patient Name: Korey Montoya. ? Procedure Date: 07/31/2024 ? A #: [id number] ? Primary Physician: Janelle, Maldonado T ? Case #: [id number] ? File Name: [id number] ? Catheterization Order Number: [id number] ? [facility] ? Final Report [place], [place] ? Patient Name: ? Korey P. Montoya ?ID#: ?[id number] ? : ?1950 ? Procedure Date: ? July 31, 2024 ?Case #: ? [id number] ? Room: ? 1 ? Case Physician: [...] ? 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 ??Good [...] Procedure Note Maldonado Luis MD - 08/01/2024 [facility] Cardiac Catheterization/Intervention Report Patient Name: Korey MontoyaToby Procedure Date: 07/31/2024 A #: [id number] Primary Physician: Maldonado Luis Case #: [id number] File Name: [id number] Catheterization Order Number: [id number] [facility] FinalReport [place], [place] Patient Name: Korey Montoya ID#:[id number] :1950 Procedure Date: July 31, 2024 Case [...] was designated as ASA Class IV. The [facility] clinical frailtyscale is 4: Vulnerable. Diagnostic [...] procedures. 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 Good [...] * POC, GLUCOSE (07/31/2024 11:04 AM EST) [facility] Glucometer, POC 82 65 - 199 mg/dL 07/31/2024 11:[address] [facility] Comment:Supplemental ranges: <140 mg/dL before meals <180 mg/dL all other times of the day. Blood CAPILLARY BLOOD / Unknown 07/31/2024 11:04 AM EST 07/31/2024 11:04 AM EST Krystal Parker MD POINT OF CARE TEST O RDERABLES [facility] [place] [address] * (ABNORMAL) Blood Gas, Arterial POC (07/31/2024 8:29 AM EST) Pathologist [facility] pH, Arterial 7.48(H) 7.35 - 7.45 07/31/2024 8:[address] [facility] PCO2, Arterial 29(L) 35 - 45 mmHg 07/31/2024 8:[address] [facility] PO2, Arterial 71(L) 85 - 104 mmHg 07/31/2024 8:[address] [facility] Bicarbonate, Arterial 20.6 20.0 - 26.0 mmol/L 07/31/2024 8:[address] [facility] Base Excess, Arterial -3.0 -3.0 - 3.0 mmol/L 07/31/2024 8:30 AM [facility] Hemoglobin, Arterial 12.3(L) 13.7 - 16.5 g/dL 07/31/2024 8:30 AM [facility] Oxyhemoglobin, Arterial 94.4 94.0 - 97.0 % 07/31/2024 8:30 AM [facility] Carboxyhemoglobin , Arterial 0.7 % 07/31/2024 8:30 AM [facility] Comment: Nonsmokers: 0.5-1.5% COHB ?? Smokers: Variable ??but usually less than 10% ?? Toxic: 20-30% COHB ?? Lethal: Greater than 60% COHB Methemoglobin, Arterial 0.3 <=1.5 % 07/31/2024 8:30 AM [facility] Sodium, Arterial 138 135 - 145 mmol/L 07/31/2024 8:30 AM [facility] Potassium, Arterial 3.5 3.5 - 5.0 mmol/L 07/31/2024 8:30 AM [facility] Chloride, Arterial 109(H) 98 - 107 mmol/L 07/31/2024 8:30 AM [facility] Lactate, Arterial 0.8 0.5 - 2.2 mmol/L 07/31/2024 8:30 AM [facility] Fraction of Inspired Oxygen 21 % 07/31/2024 8:30 AM [facility] PF Ratio 338 Ratio 07/31/2024 8:30 AM [facility] Comment:PF ratio calculated using the non-temperature corrected pO2 result. IONIZED CALCIUM, ARTERIAL 1.08(L) 1.15 - 1.33 mmol/L 07/31/2024 8:30 AM [facility] Glucose, Arterial 86 65 - 199 mg/dL 07/31/2024 8:30 AM [facility] Comment:Glucose Concentratio n >=200 mg/dL plus symptoms is consistent with Diabetes Mellitus. Blood ARTERIAL BLOOD / Unknown 07/31/2024 8:29 AM EST 07/31/2024 8:30 AM EST Krystal Parker MD POINT OF CARE TEST O JOSH Performing Organization Address [facility]/ZIP Co de Phone Number [facility] [place] [address] * POC, GLUCOSE (07/31/2024 7:47 AM EST) Glucometer, POC 82 65 - 199 mg/dL 07/31/2024 7:53 AM [facility] Comment:Supplemental ranges: <140 mg/dL before meals <180 mg/dL all other times of the day. Blood CAPILLARY BLOOD / Unknown 07/31/2024 7:47 AM EST 07/31/2024 7:53 AM EST Krystal Parker MD POINT OF CARE TEST O JOSH Performing Organization Address [facility] Co de Phone Number [facility] [place] [address] * (ABNORMAL) CBC (with Diff) (07/31/2024 1:08 AM EST) White Blood Cell 10.25(H) 4.00 - 9.50 x10(3)/mc L 07/31/2024 1:28 AM [facility] Red Blood Cell 4.13(L) 4.58 - 5.54 x10(6)/mc L 07/31/2024 1:28 AM [facility] Hemoglobin 11.2(L) 13.7 - 16.5 g/dL 07/31/2024 1:28 AM [facility] Hematocrit 33.9(L) 40.5 - 48.5 % 07/31/2024 1:28 AM [facility] Mean Cell Volume 82.1(L) 82.9 - 93.1 fL 07/31/2024 1:28 AM [facility] Mean Cell Hemoglobin 27.1(L) 27.5 - 32.1 pg 07/31/2024 1:28 AM [facility] Mean Cell Hemoglobin Concentration 33.0 32.0 - 35.7 g/dL 07/31/2024 1:28 AM [facility] Platelet 109(L) 145 - 357 x10(3)/mc L 07/31/2024 1:28 AM [facility] Mean Platelet Volume 10.4 7.6 - 12.9 fL 07/31/2024 1:28 AM [facility] RDW Standard Deviation 45.1(H) 36.0 - 45.0 fL 07/31/2024 1:28 AM [facility] RDW coefficient of variation 15.1(H) 11.4 - 13.8 % 07/31/2024 1:28 AM [facility] NRBC% auto 0.0 % 07/31/2024 1:28 AM [facility] NRBC Absolute <0.01 <0.01 x10(3)/mc L 07/31/2024 1:28 AM [facility] Neutrophil % 79.7 % 07/31/2024 1:28 AM [facility] Neutrophil Absolute (ANC) - Automated 8.17(H) 1.70 - 6.10 x10(3)/mc L 07/31/2024 1:28 AM [facility] Lymph % 12.8 % 07/31/2024 1:28 AM [facility] Lymph Absolute 1.31 0.90 - 3.20 x10(3)/mc L 07/31/2024 1:28 AM [facility] Monocyte % 6.9 % 07/31/2024 1:28 AM [facility] Monocyte Absolute 0.71 0.30 - 0.90 x10(3)/mc L 07/31/2024 1:28 AM [facility] Eos % 0.1 % 07/31/2024 1:28 AM [facility] Eos Absolute <0.04 0.00 - 0.40 x10(3)/mc L 07/31/2024 1:[address] [facility] Basophil % 0.3 % 07/31/2024 1:[address] [facility] Baso Absolute <0.04 0.00 - 0.10 x10(3)/mc L 07/31/2024 1:[address] [facility] Immature Gran % 0.2 % 1:[address] [facility] Immature Gran Absolute <0.04 0.00 - 0.04 x10(3)/mc L 07/31/2024 1:[address] [facility] Blood VENOUS BLOOD SPECIMEN / Unknown Venipuncture / Unknown 07/31/2024 1:08 AM EST 07/31/2024 1:18 AM EST Bridgette Stauffer MD HEMATOLOGY ORDERABLE S Performing Organization Address City/[facility]/ZIP Co de Phone Number [facility] [place] [address] * Magnesium (07/31/2024 1:08 AM EST) Magnesium 0.89 0.69 - 1.07 mMol/L 07/31/2024 1:[address] [facility] Blood VENOUS BLOOD SPECIMEN / Unknown Venipuncture / Unknown 07/31/2024 1:08 AM EST 07/31/2024 1:18 AM EST Bridgette Stauffer MD CHEMISTRY ORDERABLES [facility] [place] [address] * (ABNORMAL) Basic Metabolic Panel (07/31/2024 1:08 AM EST) Glucose 97 65 - 199 mg/dL 07/31/2024 1:[address] [facility] Comment:Glucose Concentratio n >=200 mg/dL plus symptoms is consistent with Diabetes Mellitus. Blood Urea Nitrogen 11 10 - 20 mg/dL 07/31/2024 1:46 AM [facility] Creatinine 0.96 0.80 - 1.50 mg/dL 07/31/2024 1:[address] [facility] Sodium 140 135 - 145 mMol/L 07/31/2024 1:46 AM [facility] Potassium 4.1 3.5 - 5.0 mMol/L 07/31/2024 1:[address] [facility] Chloride 110(H) 98 - 107 mMol/L 07/31/2024 1:46 AM [facility] Carbon Dioxide 24 22 - 31 mMol/L 07/31/2024 1:46 AM [facility] Anion Gap 6 5 - 15 mMol/L 07/31/2024 1:46 AM [facility] Calcium 7.7(L) 8.5 - 10.5 mg/dL 07/31/2024 1:46 AM [facility] Est Glomerular Filtration Rate - Male 84 mL/min/1. 73 m?? 07/31/2024 1:46 AM [facility] Comment: This patient's estimated GFR [...] AM EST Bridgette Stauffer MD CHEMISTRY ORDERABLES [facility] [address] * (ABNORMAL) Hepatic Function Panel (07/31/2024 1:08 AM EST) Albumin 3.1(L) 3.2 - 5.2 g/dL 07/31/2024 1:46 AM [facility] Aspartate Aminotransferase 192(H) <=39 unit/L 07/31/2024 1:46 AM [facility] Alanine Aminotransferase 59(H) 0 - 55 unit/L 07/31/2024 1:46 AM [facility] Alkaline Phosphatase 46 40 - 130 unit/L 07/31/2024 1:46 AM [facility] Bilirubin, Total 0.4 <=1.3 mg/dL 07/31/2024 1:46 AM [facility] Bilirubin, Direct <0.2 0.0 - 0.3 mg/dL 07/31/2024 1:46 AM [facility] Protein, Total 5.0(L) 6.1 - 8.0 g/dL 07/31/2024 1:46 AM [facility] Blood VENOUS BLOOD SPECIMEN / Unknown Venipuncture / Unknown 07/31/2024 1:08 AM EST 07/31/2024 1:18 AM EST Krystal Parker MD CHEMISTRY ORDERABLES Performing Organization Address City/[facility] Co de Phone Number [facility] [address] * POC, GLUCOSE (07/30/2024 8:03 PM EST) Glucometer, POC 86 65 - 199 mg/dL 07/30/2024 8:03 PM [facility] Comment:Supplemental ranges: <140 mg/dL before meals <180 mg/dL all other times of the day. Blood CAPILLARY BLOOD / Unknown 07/30/2024 8:03 PM EST 07/30/2024 8:03 PM EST Krystal aPrker MD POINT OF CARE TEST O RDERABLES [facility] [address] * Potassium (07/30/2024 8:03 PM EST) Potassium 3.8 3.5 - 5.0 mMol/L 07/30/2024 9:[address] [facility] Blood VENOUS BLOOD SPECIMEN / Unknown Venipuncture / Unknown 07/30/2024 8:03 PM EST 07/30/2024 8:22 PM EST Jay Silveroi MD CHEMISTRY ORDERABL ES Performing Organization Address [facility] Co de Phone Number [facility] [address] * POC, GLUCOSE (07/30/2024 6:23 PM EST) Glucometer, POC 93 65 - 199 mg/dL 07/30/2024 6:[address] [facility] Comment:Supplemental ranges: <140 mg/dL before meals <180 mg/dL all other times of the day. Blood CAPILLARY BLOOD / Unknown 07/30/2024 6:23 PM EST 07/30/2024 6:24 PM EST Krystal Parker MD POINT OF CARE TEST O RDERABLES Performing Organization Address City/[facility]/ZIP Co de Phone Number [facility] [address] * POC, GLUCOSE (07/30/2024 5:08 PM EST) Glucometer, POC 78 65 - 199 mg/dL 07/30/2024 5:[address] [facility] Comment:Supplemental ranges: <140 mg/dL before meals <180 mg/dL all other times of the day. Blood CAPILLARY BLOOD / Unknown 07/30/2024 5:08 PM EST 07/30/2024 5:08 PM EST Krystal Parker MD POINT OF CARE TEST O RDERABLES Performing Organization Address [facility]/ZIP Co de Phone Number [facility] [place] [address] * (ABNORMAL) Phosphorus (07/30/2024 3:08 PM EST) Phosphorus 2.1(L) 2.5 - 4.5 mg/dL 07/30/2024 3:[address] [facility] Blood VENOUS BLOOD SPECIMEN / Unknown Venipuncture / Unknown 07/30/2024 3:08 PM EST 07/30/2024 3:12 PM EST Jay Silverio MD CHEMISTRY ORDERABL ES Performing Organization Address [facility] Co de Phone Number [facility] [place] [address] * Magnesium (07/30/2024 3:08 PM EST) Magnesium 0.90 0.69 - 1.07 mMol/L 07/30/2024 3:[address] [facility] Blood VENOUS BLOOD SPECIMEN / Unknown Venipuncture / Unknown 07/30/2024 3:08 PM EST 07/30/2024 3:12 PM EST Jay Silverio MD CHEMISTRY ORDERABL ES Performing Organization Address [facility]/ZIP Co de Phone Number [facility] [place] [address] * (ABNORMAL) Basic Metabolic Panel (07/30/2024 3:08 PM EST) Glucose 105 65 - 199 mg/dL 07/30/2024 4:[address] [facility] Comment:Glucose Concentratio n >=200 mg/dL plus symptoms is consistent with Diabetes Mellitus. Blood Urea Nitrogen 13 10 - 20 mg/dL 07/30/2024 4:[address] [facility] Creatinine 1.01 0.80 - 1.50 mg/dL 07/30/2024 4:[address] [facility] Sodium 141 135 - 145 mMol/L 07/30/2024 4:[address] [facility] Potassium 3.4(L) 3.5 - 5.0 mMol/L 07/30/2024 4:17 PM [facility] Chloride 109(H) 98 - 107 mMol/L 07/30/2024 4:17 PM [facility] Carbon Dioxide 21(L) 22 - 31 mMol/L 07/30/2024 4:17 PM [facility] Anion Gap 11 5 - 15 mMol/L 07/30/2024 4:17 PM [facility] Calcium 7.9(L) 8.5 - 10.5 mg/dL 07/30/2024 4:17 PM [facility] Est Glomerular Filtration Rate - Male 79 mL/min/1. 73 m?? 07/30/2024 4:17 PM [facility] Comment: This patient's estimated GFR [...] EST Jay Silverio MD CHEMISTRY ORDERABL ES [facility] [place] [address] * ECHO LMTD W CONTRAST W LMTD SPEC DOPP COLOR DOPP (07/30/2024 11:42 AM EST) Anatomical Region Laterality Modality Cardiac Other 07/30/2024 10:2 2 AM EST Narrative 07/30/2024 12:34 PM EST [address] [place] [address] ? Echocardiogram Report Name: KOREY MONTOYA ? Study Date: 07/30/2024 10:22 AMBP: 124/66 mmHg : 1950 ? Height: 168 cm ? Account: [id number] Age: 74 yrs ? Weight: 65 kg Gender: Male ?BSA: 1.7 m2 Ordering Physician: Jay Silverio MD Referring Physician: CHAPARRO FERRERA Performed By: OMERO Millan Reason For Study: ST elevation myocardial infarction involving left anterior descending (LAD) coronary artery Interpreting Fellow: Ivan Hernandez. Exam Location: [facility]. Interpretation Summary Left ventricle is severely dilated. [...] Compared to the overnight study by the non destructive testing inspector fellow the impella position is stable. 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 Procedure Limited - 82435. Image enhancement Definity was used for both [...] Note Kathleen Banda MD - 07/30/2024 [address] [place] [address] Echocardiogram Report Name: KOREY MONTOYA Study Date: 410:22 AMBP: 124/66 mmHg : 1950 Height: 168 cm Account: [id number] Age: 74 yrs Weight: 65 kg Gender: Male BSA: 1.7 m2 Ordering Physician: Jay Silverio MD Referring Physician: CHAPARRO FERRERA Performed By: OMERO Millan Reason For Study: ST elevation myocardial infarction involving leftanterior descending (LAD) coronary artery Interpreting Fellow: Ivan Hernandez. Exam Location: [facility]. Interpretation Summary Left ventricle is severely dilated. [...] Compared to the overnight study by the non destructive testing inspector fellow the impella positionis stable. The global left ventricular systolic function has improvedpredominantly via recruitment outside the LAD territory which remains akinetic. Procedure Limited - 88500. Image enhancement Definity was used for both [...] - 199 mg/dL 07/30/2024 11:[address] [facility] Comment:Supplemental ranges: <140 mg/dL before meals <180 mg/dL all other times of the day. Blood CAPILLARY BLOOD / Unknown 07/30/2024 11:17 AM EST 07/30/2024 11:17 AM EST Jay Silverio MD POINT OF CARE TEST ORDERABLES [facility] [place] [address] * (ABNORMAL) Blood Gas, Arterial POC (07/30/2024 8:16 AM EST) pH, Arterial 7.44 7.35 - 7.45 07/30/2024 8:[address] [facility] PCO2, Arterial 29(L) 35 - 45 mmHg 07/30/2024 8:[address] [facility] PO2, Arterial 109(H) 85 - 104 mmHg 07/30/2024 8:[address] [facility] Bicarbonate, Arterial 19.4(L) 20.0 - 26.0 mmol/L 07/30/2024 8:17 AM [facility] Base Excess, Arterial -4.7(L) -3.0 - 3.0 mmol/L 07/30/2024 8:17 AM [facility] Hemoglobin, Arterial 12.2(L) 13.7 - 16.5 g/dL 07/30/2024 8:17 AM [facility] Oxyhemoglobin, Arterial 97.1(H) 94.0 - 97.0 % 07/30/2024 8:17 AM [facility] Carboxyhemoglob in, Arterial 1.0 % 07/30/2024 8:17 AM [facility] Comment: Nonsmokers: 0.5-1.5% COHB ?? Smokers: Variable ??but usually less than 10% ?? Toxic: 20-30% COHB ?? Lethal: Greater than 60% COHB Methemoglobin, Arterial 0.1 <=1.5 % 07/30/2024 8:17 AM [facility] Sodium, Arterial 132(L) 135 - 145 mmol/L 07/30/2024 8:17 AM [facility] Potassium, Arterial 3.9 3.5 - 5.0 mmol/L 07/30/2024 8:17 AM [facility] Chloride, Arterial 105 98 - 107 mmol/L 07/30/2024 8:17 AM [facility] Lactate, Arterial 1.2 0.5 - 2.2 mmol/L 07/30/2024 8:17 AM [facility] Fraction of Inspired Oxygen 21 % 07/30/2024 8:17 AM [facility] PF Ratio 519 Ratio 07/30/2024 8:17 AM [facility] Comment:PF ratio calculated using the non-temperature corrected pO2 result. IONIZED CALCIUM, ARTERIAL 1.15 1.15 - 1.33 mmol/L 07/30/2024 8:17 AM [facility] Blood ARTERIAL BLOOD / Unknown 07/30/2024 8:16 AM EST 07/30/2024 8:17 AM EST Jay Silverio MD POINT OF CARE TEST ORDERABLES [facility] [place] [address] * (ABNORMAL) Troponin - Single (07/30/2024 8:09 AM EST) Troponin-T, High Sensitivity 8,651(H) <=22 ng/L 07/30/2024 9:[address] [facility] Comment: This patient's troponin T [...] troponin value can be found in the [facility] Laboratory Test Catalog Troponin - [email or web address]/565/[email or web address] Reference: Fourth Victor Definition of Myocardial Infarction. Journal of the [employer] 2018;72:8260-5690 Blood VENOUS BLOOD SPECIMEN / Unknown Venipuncture / Unknown 07/30/2024 8:09 AM EST 07/30/2024 8:26 AM EST Jay Silverio MD CHEMISTRY ORDERABL ES Performing Organization Address City/[facility]/ZIP Co de Phone Number [facility] [place] [address] * POC, GLUCOSE (07/30/2024 7:40 AM EST) [facility] Glucometer, POC 111 65 - 199 mg/dL 07/30/2024 7:40 AM [facility] Comment:Supplemental ranges: <140 mg/dL before meals <180 mg/dL all other times of the day. Blood CAPILLARY BLOOD / Unknown 07/30/2024 7:40 AM EST 07/30/2024 7:40 AM EST Jay Silverio MD POINT OF CARE TEST ORDERABLES [facility] [address] * (ABNORMAL) CBC (with Diff) (07/30/2024 2:11 AM EST) [facility] White Blood Cell 11.25(H) 4.00 - 9.50 x10(3)/mc L 07/30/2024 2:33 AM [facility] Red Blood Cell 4.50(L) 4.58 - 5.54 x10(6)/mc L 07/30/2024 2:33 AM [facility] Hemoglobin 12.2(L) 13.7 - 16.5 g/dL 07/30/2024 2:33 AM [facility] Hematocrit 37.1(L) 40.5 - 48.5 % 07/30/2024 2:33 AM [facility] Mean Cell Volume 82.4(L) 82.9 - 93.1 fL 07/30/2024 2:33 AM [facility] Mean Cell Hemoglobin 27.1(L) 27.5 - 32.1 pg 07/30/2024 2:33 AM [facility] Mean Cell Hemoglobin Concentration 32.9 32.0 - 35.7 g/dL 07/30/2024 2:33 AM [facility] Platelet 166 145 - 357 x10(3)/mc L 07/30/2024 2:33 AM [facility] Mean Platelet Volume 10.6 7.6 - 12.9 fL 07/30/2024 2:33 AM [facility] RDW Standard Deviation 44.6 36.0 - 45.0 fL 07/30/2024 2:33 AM [facility] RDW coefficient of variation 14.6(H) 11.4 - 13.8 % 07/30/2024 2:33 AM [facility] NRBC% auto 0.0 % 07/30/2024 2:33 AM [facility] NRBC Absolute <0.01 <0.01 x10(3)/mc L 07/30/2024 2:33 AM [facility] Neutrophil % 88.9 % 07/30/2024 2:33 AM [facility] Neutrophil Absolute (ANC) - Automated 10.00(H) 1.70 - 6.10 x10(3)/mc L 07/30/2024 2:33 AM [facility] Lymph % 5.1 % 07/30/2024 2:33 AM [facility] Lymph Absolute 0.57(L) 0.90 - 3.20 x10(3)/mc L 07/30/2024 2:33 AM [facility] Monocyte % 5.4 % 07/30/2024 2:33 AM [facility] Monocyte Absolute 0.61 0.30 - 0.90 x10(3)/mc L 07/30/2024 2:33 AM [facility] Eos % 0.0 % 07/30/2024 2:33 AM [facility] Eos Absolute <0.04 0.00 - 0.40 x10(3)/mc L 07/30/2024 2:33 AM [facility] Basophil % 0.2 % 07/30/2024 2:33 AM [facility] Baso Absolute <0.04 0.00 - 0.10 x10(3)/mc L 07/30/2024 2:33 AM [facility] Immature Gran % 0.4 % 2:[address] [facility] Immature Gran Absolute 0.05(H) 0.00 - 0.04 x10(3)/mc L 07/30/2024 2:33 AM [facility] Blood VENOUS BLOOD SPECIMEN / Unknown Venipuncture / Unknown 07/30/2024 2:11 AM EST 07/30/2024 2:22 AM EST Bridgette Stauffer MD HEMATOLOGY ORDERABLE S Performing Organization Address City/[facility]/ZIP Co de Phone Number [facility] [place] [address] * Magnesium (07/30/2024 2:11 AM EST) Pathologist [facility] Magnesium 1.01 0.69 - 1.07 mMol/L 07/30/2024 2:51 AM [facility] Blood VENOUS BLOOD SPECIMEN / Unknown Venipuncture / Unknown 07/30/2024 2:11 AM EST 07/30/2024 2:22 AM EST Bridgette Stauffer MD CHEMISTRY ORDERABLES Performing Organization Address City/[facility] Co de Phone Number [facility] [place] [address] * (ABNORMAL) Basic Metabolic Panel (07/30/2024 2:11 AM EST) Pathologist [facility] Glucose 190 65 - 199 mg/dL 07/30/2024 2:51 AM [facility] Comment:Glucose Concentratio n >=200 mg/dL plus symptoms is consistent with Diabetes Mellitus. Blood Urea Nitrogen 15 10 - 20 mg/dL 07/30/2024 2:51 AM [facility] Creatinine 0.88 0.80 - 1.50 mg/dL 07/30/2024 2:51 AM [facility] Sodium 135 135 - 145 mMol/L 07/30/2024 2:51 AM [facility] Potassium 4.9 3.5 - 5.0 mMol/L 07/30/2024 2:[address] [facility] Chloride 105 98 - 107 mMol/L 07/30/2024 2:51 AM [facility] Carbon Dioxide 19(L) 22 - 31 mMol/L 07/30/2024 2:51 AM [facility] Anion Gap 11 5 - 15 mMol/L 07/30/2024 2:51 AM [facility] Calcium 7.7(L) 8.5 - 10.5 mg/dL 07/30/2024 2:51 AM [facility] Est Glomerular Filtration Rate - Male 91 mL/min/1. 73 m?? 07/30/2024 2:51 AM [facility] Comment: This patient's estimated GFR [...] AM EST Bridgette Stauffer MD CHEMISTRY ORDERABLES [facility] [place] [address] * (ABNORMAL) Cooximetry, POC (07/30/2024 1:00 AM EST) pO2, Coox 28 mmHg 07/30/2024 1:03 AM [facility] Hemoglobin, Coox 12.7(L) 13.7 - 16.5 g/dL 07/30/2024 1:03 AM [facility] Oxyhemoglobin, Coox 54.9 % 07/30/2024 1:03 AM [facility] Carboxyhemoglo bin, Coox 1.0 % 07/30/2024 1:03 AM [facility] Comment: Nonsmokers: 0.5-1.5% COHB ?? Smokers: Variable ??but usually less than 10% ?? Toxic: 20-30% COHB ?? Lethal: Greater than 60% COHB Methemoglobin, Coox 0.0 <=1.5 % 07/30/2024 1:03 AM [facility] Blood (Mixed Venous) 07/30/2024 1:00 AM EST 07/30/2024 1:03 AM EST Jay Silverio MD POINT OF CARE TEST ORDERABLES Performing Organization Address City/State/[facility] Co de Phone Number [facility] [place] [address] * (ABNORMAL) Blood Gas, Arterial POC (07/30/2024 12:57 AM EST) pH, Arterial 7.38 7.35 - 7.45 07/30/2024 12:58 AM [facility] PCO2, Arterial 34(L) 35 - 45 mmHg 07/30/2024 12:58 AM [facility] PO2, Arterial 141(H) 85 - 104 mmHg 07/30/2024 12:58 AM [facility] Bicarbonate, Arterial 19.5(L) 20.0 - 26.0 mmol/L 07/30/2024 12:58 AM [facility] Base Excess, Arterial -5.6(L) -3.0 - 3.0 mmol/L 07/30/2024 12:58 AM [facility] Hemoglobin, Arterial 13.0(L) 13.7 - 16.5 g/dL 07/30/2024 12:58 AM [facility] Oxyhemoglobin, Arterial 98.4(H) 94.0 - 97.0 % 07/30/2024 12:58 AM [facility] Carboxyhemoglobin , Arterial 0.4 % 07/30/2024 12:58 AM [facility] Comment: Nonsmokers: 0.5-1.5% COHB ?? Smokers: Variable ??but usually less than 10% ?? Toxic: 20-30% COHB ?? Lethal: Greater than 60% COHB Methemoglobin, Arterial 0.1 <=1.5 % 07/30/2024 12:58 AM [facility] Sodium, Arterial 130(L) 135 - 145 mmol/L 07/30/2024 12:58 AM [facility] Potassium, Arterial 4.5 3.5 - 5.0 mmol/L 07/30/2024 12:58 AM [facility] Chloride, Arterial 104 98 - 107 mmol/L 07/30/2024 12:58 AM [facility] Lactate, Arterial 1.3 0.5 - 2.2 mmol/L 07/30/2024 12:58 AM [facility] Flow Rate 2.0 L/min 07/30/2024 12:58 AM [facility] IONIZED CALCIUM, ARTERIAL 1.12(L) 1.15 - 1.33 mmol/L 07/30/2024 12:58 AM [facility] Glucose, Arterial 184 65 - 199 mg/dL 07/30/2024 12:58 AM [facility] Comment:Glucose Concentratio n >=200 mg/dL plus symptoms is consistent with Diabetes Mellitus. Blood ARTERIAL BLOOD / Unknown 07/30/2024 12:57 AM EST 07/30/2024 12:58 AM EST Jay Silverio MD POINT OF CARE TEST ORDERABLES [facility] [place] [address] * (ABNORMAL) Troponin - Single (07/29/2024 10:31 PM EST) Troponin-T, High Sensitivity >10,000(H ) <=22 ng/L 07/29/2024 11:[address] [facility] Comment: This patient's troponin T [...] troponin value can be found in the [facility] Laboratory Test Catalog Troponin - [email or web address].org/catalogs/565/files/89129 Reference: Fourth Victor Definition of Myocardial Infarction. Journal of the [employer] 2018;72:6652-7059 Blood VENOUS BLOOD SPECIMEN / Unknown Venipuncture / Unknown 07/29/2024 10:31 PM EST 07/29/2024 10:36 PM EST Yrn Ward MD CHEMISTRY ORDERABL ES [facility] [place] [address] * Potassium (07/29/2024 8:11 PM EST) Potassium 4.1 3.5 - 5.0 mMol/L 07/29/2024 8:[address] [facility] Blood VENOUS BLOOD SPECIMEN / Unknown Venipuncture / Unknown 07/29/2024 8:11 PM EST 07/29/2024 8:16 PM EST Jay Silverio MD CHEMISTRY ORDERABL ES [facility] [place] [address] * (ABNORMAL) Troponin - Single (07/29/2024 8:11 PM EST) Troponin-T, High Sensitivity >10,000(H ) <=22 ng/L 07/29/2024 8:[address] [facility] Comment: This patient's troponin T [...] troponin value can be found in the [facility] Laboratory Test Catalog Troponin - [email or web address].testcatalog.org/catalogs/565/files/50201 Reference: Fourth Victor Definition of Myocardial Infarction. Journal of the [employer] 2018;72:6944-7867 Blood VENOUS BLOOD SPECIMEN / Unknown Venipuncture / Unknown 07/29/2024 8:11 PM EST 07/29/2024 8:16 PM EST Jay Silverio MD CHEMISTRY ORDERABL ES [facility] [place] [address] * (ABNORMAL) Phosphorus (07/29/2024 8:11 PM EST) Phosphorus 2.1(L) 2.5 - 4.5 mg/dL 07/29/2024 8:[address] [facility] Blood VENOUS BLOOD SPECIMEN / Unknown Venipuncture / Unknown 07/29/2024 8:11 PM EST 07/29/2024 8:16 PM EST Jay Silverio MD CHEMISTRY ORDERABL ES Performing Organization Address City/[facility]/ZIP Co de Phone Number [facility] [place] [address] * POC, GLUCOSE (07/29/2024 8:09 PM EST) Glucometer, POC 142 65 - 199 mg/dL 07/29/2024 8:[address] [facility] Comment:Supplemental ranges: <140 mg/dL before meals <180 mg/dL all other times of the day. Blood CAPILLARY BLOOD / Unknown 07/29/2024 8:09 PM EST 07/29/2024 8:09 PM EST Jay Silverio MD POINT OF CARE TEST ORDERABLES Performing Organization Address City/[facility]/ZIP Co de Phone Number [facility] [place] [place] [address] * ABORH RECHECK (07/29/2024 6:43 PM EST) ABORH Recheck AB POSITIVE 07/29/2024 10:13 PM EST [facility] Blood VENOUS BLOOD SPECIMEN / Unknown Venipuncture / Unknown 07/29/2024 6:43 PM EST 07/29/2024 7:15 PM EST Jay Silverio MD BLOOD BANK LAB ORD ERABLES Performing Organization Address City/[facility]/ZIP Co de Phone Number [facility] [place] [address] * POC, GLUCOSE (07/29/2024 5:57 PM EST) Glucometer, POC 166 65 - 199 mg/dL 07/29/2024 5:[address] [facility] Comment:Supplemental ranges: <140 mg/dL before meals <180 mg/dL all other times of the day. Blood CAPILLARY BLOOD / Unknown 07/29/2024 5:57 PM EST 07/29/2024 5:57 PM EST Jay Silverio MD POINT OF CARE TEST ORDERABLES Performing Organization Address City/[facility]/ZIP Co de Phone Number [facility] [place] [address] * Type and screen ([facility]/CGP/MAGALIE) (07/29/2024 5:56 PM EST) [facility] ABORH Type AB POSITIVE 07/29/2024 9:44 PM EST [facility] PATIENT HISTORY Not Found 07/29/2024 9:44 PM EST [facility] Expires at [id number] on: 08/01/2024 07/29/2024 9:44 PM EST [facility] ANTIBODY SCREEN AUTOMATED Negative 07/29/2024 9:44 PM EST [facility] T&S only valid at [facility] 07/29/2024 9:44 PM EST [facility] Blood VENOUS BLOOD SPECIMEN / Unknown Venipuncture / Unknown 07/29/2024 5:56 PM EST 07/29/2024 6:07 PM EST Narrative [facility] - 07/29/2024 9:44 PM EST This Type and Screen result is only valid at the [facility] Jay Silverio MD BLOOD BANK LAB ORD ERABLES Performing Organization Address City/[facility]/ZIP Co de Phone Number [facility] [place] [address] * (ABNORMAL) Troponin - Single (07/29/2024 4:52 PM EST) [facility] Troponin-T, High Sensitivity >10,000(H ) <=22 ng/L 07/29/2024 5:[address] [facility] Comment: This patient's troponin T [...] troponin value can be found in the [facility] Laboratory Test Catalog Troponin - https://[email or web address].org/catalogs/565/files/[email or web address] Reference: Fourth Victor Definition of Myocardial Infarction. Journal of the [employer] College [employer] 2018;72:6064-7991 Blood VENOUS BLOOD SPECIMEN / Unknown Venipuncture / Unknown 07/29/2024 4:52 PM EST 07/29/2024 4:57 PM EST Jay Silverio MD CHEMISTRY ORDERABL ES Performing Organization Address City/State/[facility] [place] [address] * EKG 12 Lead (07/29/2024 4:21 PM EST) Ventricular rate 72 BPM MUSE SYSTEM Atrial Rate 72 BPM MUSE SYSTEM P-R Interval 168 ms MUSE SYSTEM QRS Duration 82 ms MUSE SYSTEM Q-T Interval 392 ms MUSE SYSTEM QTC Calculated (Bezet) 429 ms MUSE SYSTEM Calculated P Garfield 71 degrees MUSE SYSTEM Calculated R Garfield 77 degrees MUSE SYSTEM Calculated T Garfield 28 degrees MUSE SYSTEM INTERPRETATION Sinus rhythm with Premature supraventricular complexes and Occasional Premature ventricular complexes Low voltage QRS 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) Lateral injury pattern ACUTE CO / STEMI Abnormal ECG When compared with [...] 7.37 7.35 - 7.45 07/29/2024 4:22 PM [facility] PCO2, Arterial 36 35 - 45 mmHg 07/29/2024 4:22 PM [facility] PO2, Arterial 71(L) 85 - 104 mmHg 07/29/2024 4:22 PM [facility] Bicarbonate, Arterial 20.4 20.0 - 26.0 mmol/L 07/29/2024 4:22 PM [facility] Base Excess, Arterial -4.8(L) -3.0 - 3.0 mmol/L 07/29/2024 4:22 PM [facility] Hemoglobin, Arterial 12.2(L) 13.7 - 16.5 g/dL 07/29/2024 4:22 PM [facility] Oxyhemoglobin, Arterial 93.8(L) 94.0 - 97.0 % 07/29/2024 4:22 PM [facility] Carboxyhemoglobin , Arterial 0.5 % 07/29/2024 4:22 PM [facility] Comment: Nonsmokers: 0.5-1.5% COHB ?? Smokers: Variable ??but usually less than 10% ?? Toxic: 20-30% COHB ?? Lethal: Greater than 60% COHB Methemoglobin, Arterial 0.3 <=1.5 % 07/29/2024 4:22 PM [facility] Sodium, Arterial 134(L) 135 - 145 mmol/L 07/29/2024 4:22 PM [facility] Potassium, Arterial 4.2 3.5 - 5.0 mmol/L 07/29/2024 4:22 PM [facility] Chloride, Arterial 107 98 - 107 mmol/L 07/29/2024 4:22 PM [facility] Lactate, Arterial 1.5 0.5 - 2.2 mmol/L 07/29/2024 4:22 PM [facility] Fraction of Inspired Oxygen 21 % 07/29/2024 4:22 PM [facility] PF Ratio 338 Ratio 07/29/2024 4:22 PM [facility] Comment:PF ratio calculated using the non-temperature corrected pO2 result. IONIZED CALCIUM, ARTERIAL 1.12(L) 1.15 - 1.33 mmol/L 07/29/2024 4:22 PM [facility] Glucose, Arterial 181 65 - 199 mg/dL 07/29/2024 4:22 PM [facility] Comment:Glucose Concentratio n >=200 mg/dL plus symptoms is consistent with Diabetes Mellitus. Blood ARTERIAL BLOOD / Unknown 07/29/2024 4:21 PM EST 07/29/2024 4:22 PM EST Jay Silverio MD POINT OF CARE TEST ORDERABLES Performing Organization Address City/[facility]/ZIP Co de Phone Number [facility] [place] [address] * POC, GLUCOSE (07/29/2024 4:19 PM EST) [facility] Signature Glucometer, POC 185 65 - 199 mg/dL 07/29/2024 4:19 PM [facility] Comment:Supplemental ranges: <140 mg/dL before meals <180 mg/dL all other times of the day. Blood CAPILLARY BLOOD / Unknown 07/29/2024 4:19 PM EST 07/29/2024 4:19 PM EST Jay Silverio MD POINT OF CARE TEST ORDERABLES [facility] [place] [address] * Blood culture (07/29/2024 4:08 PM EST) Blood Culture No growth at 120 hours 08/03/2024 5:[address] [facility] Blood VENOUS BLOOD SPECIMEN / Unknown Venipuncture / Unknown 07/29/2024 4:08 PM EST 07/29/2024 4:15 PM EST Jay Silverio MD MICROBIOLOGY - BLO OD ORDERABLES Performing Organization Address City/[facility] Co de Phone Number [facility] [place] [address] * Blood culture (07/29/2024 4:08 PM EST) Blood Culture No growth at 120 hours 08/03/2024 5:[address] [facility] Blood VENOUS BLOOD SPECIMEN / Unknown Venipuncture / Unknown 07/29/2024 4:08 PM EST 07/29/2024 4:26 PM EST Jay Silverio MD MICROBIOLOGY - BLO OD ORDERABLES Performing Organization Address [facility] Co de Phone Number [facility] [place] [address] * XR Chest One View (07/29/2024 2:30 PM EST) WORKSTATION ID [id number] RAD Anatomical Region Laterality Modality Chest N/A [...] who have questions please contact the health career professional that requested your imaging first. ? Narrative [...] patients who have questions please contactthe health career professional that requested your imaging first. Vahe Marvin MD IMG DX ORDERABLES * (ABNORMAL) APTT (07/29/2024 2:03 PM EST) Partial Thromboplastin Time >160(HHH) 25 - 37 sec 07/29/2024 2:[address] [facility] Blood VENOUS BLOOD SPECIMEN / Unknown Venipuncture / Unknown 07/29/2024 2:03 PM EST 07/29/2024 2:13 PM EST Vahe Marvin MD HEMATOLOGY ORDERABLE S Performing Organization Address City/[facility]/ZIP Co de Phone Number [facility] [place] [address] * (ABNORMAL) Prothrombin Time (07/29/2024 2:03 PM EST) Prothrombin Time 14.2(H) 9.4 - 12.5 sec 07/29/2024 2:[address] [facility] International Normalization Ratio 1.3 <=4.9 07/29/2024 2:[address] [facility] Comment: An INR < 2.0 [...] MD HEMATOLOGY ORDERABLE S Performing Organization Address City/[facility]/ZIP Co de Phone Number [facility] [place] [address] * CRP, acute inflammation (07/29/2024 2:03 PM EST) C-Reactive Protein <3.0 <=4.9 mg/L 07/29/2024 2:[address] [facility] Blood VENOUS BLOOD SPECIMEN / Unknown Venipuncture / Unknown 07/29/2024 2:03 PM EST 07/29/2024 2:14 PM EST Vahe Marvin MD CHEMISTRY ORDERABLES [facility] [place] [address] * Lipid Panel (Reflex Direct LDL) (07/29/2024 2:03 PM EST) [facility] Signature Cholesterol, Total 133 mg/dL 07/29/2024 2:52 PM [facility] Comment: Desirable: < 200 mg/dL Borderline High: 200 - 239 mg/dL High: > or = 240 mg/dL Triglyceride 45 mg/dL 07/29/2024 2:52 PM [facility] Comment: Normal: <150 mg/dL Borderline High: 150-199 mg/dL High: 200-499 mg/dL Very High: > or =500 mg/dL HDL Cholesterol 58 mg/dL 2:52 PM [facility] Comment:Males: High Risk: <4 0 mg/dL LDL Cholesterol 64 mg/dL 4 2:52 PM [facility] Comment: Desirable: <100 mg/dL Above Desirable: 100-129 mg/dL Borderline High: 130-159 mg/dL High: 160-189 mg/dL Very High: > or =190 mg/dL Note: LDL calculation updated to the NIH LDL formula as of 04/15/2024 Non-HDL Cholesterol 75 mg/dL 07/29/2024 2:52 PM [facility] Comment: Desirable: <130 mg/dL Above Desirable: 130-159 mg/dL Borderline High: 160-189 mg/dL High: 190-219 mg/dL Very High: > or = 220 mg/dL Blood VENOUS BLOOD SPECIMEN / Unknown Venipuncture / Unknown 07/29/2024 2:03 PM EST 07/29/2024 2:[address] [facility] - 07/29/2024 2:52 PM EST [...] ACC/AHA Guidelines (most recently Rolf et al. [facility] 06/15/22): * For individuals with [...] Marvin MD CHEMISTRY ORDERABLES Performing Organization Address City/[facility]/ZIP Co de Phone Number [facility] [place] [address] * TSH [place] (07/29/2024 2:03 PM EST) Thyroid Stimulating Hormone 0.70 0.27 - 4.20 mcIU/mL 07/29/2024 2:[address] [facility] Blood VENOUS BLOOD SPECIMEN / Unknown Venipuncture / Unknown 07/29/2024 2:03 PM EST 07/29/2024 2:14 PM EST Vahe Marvin MD CHEMISTRY ORDERABLES Performing Organization Address [facility] Co de Phone Number [facility] [place] [address] * Hemoglobin A1c (07/29/2024 2:03 PM EST) Hemoglobin A1c 5.3 4.3 - 5.6 % 07/29/2024 2:[address] [facility] Comment: Per ADA guidelines, without [...] red blood cell turnover may not be retail field representative of glycemic control. Reference Interval: 4.3 - 5.6% 5.7 - 6.4%: Consistent with prediabetes >=6.5%: Consistent with diagnosis of diabetes mellitus Estimated Average Glucose 07/29/2024 2:[address] [facility] Comment:Estimated Average Gl ucose not appropriate for patients over 70 years of age. Blood VENOUS BLOOD SPECIMEN / Unknown Venipuncture / Unknown 07/29/2024 2:03 PM EST 07/29/2024 2:14 PM EST [facility] - 07/29/2024 2:41 PM EST Estimated average glucose (eAG) is calculated from the equation described in: Quinten ALVES, Rikki J, [place] R, et al. ??Translating the A1C assay into estimated average glucose values. ??Diabetes Care 2008:31(8):0175-7768. Additional resources are available on the ADA website (diabetes.org). Vahe Marvin MD CHEMISTRY ORDERABLES [facility] [place] [address] * (ABNORMAL) CBC (with Diff) (07/29/2024 2:03 PM EST) White Blood Cell 19.50(H) 4.00 - 9.50 x10(3)/mc L 07/29/2024 2:[address] [facility] Red Blood Cell 4.81 4.58 - 5.54 x10(6)/mc L 07/29/2024 2:18 PM [facility] Hemoglobin 13.1(L) 13.7 - 16.5 g/dL 07/29/2024 2:18 PM [facility] Hematocrit 40.1(L) 40.5 - 48.5 % 07/29/2024 2:18 PM [facility] Mean Cell Volume 83.4 82.9 - 93.1 fL 07/29/2024 2:18 PM [facility] Mean Cell Hemoglobin 27.2(L) 27.5 - 32.1 pg 07/29/2024 2:18 PM [facility] Mean Cell Hemoglobin Concentration 32.7 32.0 - 35.7 g/dL 07/29/2024 2:18 PM [facility] Platelet 236 145 - 357 x10(3)/mc L 07/29/2024 2:18 PM [facility] Mean Platelet Volume 10.6 7.6 - 12.9 fL 07/29/2024 2:18 PM [facility] RDW Standard Deviation 43.7 36.0 - 45.0 fL 07/29/2024 2:18 PM [facility] RDW coefficient of variation 14.3(H) 11.4 - 13.8 % 07/29/2024 2:18 PM [facility] NRBC% auto 0.0 % 07/29/2024 2:18 PM [facility] NRBC Absolute <0.01 <0.01 x10(3)/mc L 07/29/2024 2:18 PM [facility] Neutrophil % 93.6 % 07/29/2024 2:18 PM [facility] Neutrophil Absolute (ANC) - Automated 18.28(H) 1.70 - 6.10 x10(3)/mc L 07/29/2024 2:18 PM [facility] Lymph % 2.7 % 07/29/2024 2:18 PM [facility] Lymph Absolute 0.52(L) 0.90 - 3.20 x10(3)/mc L 07/29/2024 2:18 PM [facility] Monocyte % 2.9 % 07/29/2024 2:18 PM [facility] Monocyte Absolute 0.56 0.30 - 0.90 x10(3)/mc L 07/29/2024 2:18 PM [facility] Eos % 0.0 % 07/29/2024 2:18 PM [facility] Eos Absolute <0.04 0.00 - 0.40 x10(3)/mc L 07/29/2024 2:18 PM [facility] Basophil % 0.3 % 07/29/2024 2:18 PM [facility] Baso Absolute 0.05 0.00 - 0.10 x10(3)/mc L 07/29/2024 2:18 PM [facility] Immature Gran % 0.5 % 2:18 PM [facility] Immature Gran Absolute 0.09(H) 0.00 - 0.04 x10(3)/mc L 07/29/2024 2:[address] [facility] Blood VENOUS BLOOD SPECIMEN / Unknown Venipuncture / Unknown 07/29/2024 2:03 PM EST 07/29/2024 2:13 PM EST Vahe Marvin MD HEMATOLOGY ORDERABLE S Performing Organization Address City/[facility]/ZIP Co de Phone Number [facility] [place] [address] * Phosphorus (07/29/2024 2:03 PM EST) Phosphorus 2.5 2.5 - 4.5 mg/dL 07/29/2024 2:[address] [facility] Blood VENOUS BLOOD SPECIMEN / Unknown Venipuncture / Unknown 07/29/2024 2:03 PM EST 07/29/2024 2:14 PM EST Vahe Marvin MD CHEMISTRY ORDERABLES Performing Organization Address [facility] Co de Phone Number [facility] [place] [address] * Magnesium (07/29/2024 2:03 PM EST) Magnesium 0.70 0.69 - 1.07 mMol/L 07/29/2024 2:[address] [facility] Blood VENOUS BLOOD SPECIMEN / Unknown Venipuncture / Unknown 07/29/2024 2:03 PM EST 07/29/2024 2:14 PM EST Vahe Marvin MD CHEMISTRY ORDERABLES Performing Organization Address [facility] Co de Phone Number [facility] [address] * (ABNORMAL) Comprehensive metabolic panel (07/29/2024 2:03 PM EST) Glucose 243(H) 65 - 199 mg/dL 07/29/2024 3:11 PM [facility] Comment:Glucose Concentratio n >=200 mg/dL plus symptoms is consistent with Diabetes Mellitus. Blood Urea Nitrogen 13 10 - 20 mg/dL 07/29/2024 3:11 PM [facility] Creatinine 0.88 0.80 - 1.50 mg/dL 07/29/2024 3:11 PM [facility] Sodium 138 135 - 145 mMol/L 07/29/2024 3:11 PM [facility] Potassium 3.6 3.5 - 5.0 mMol/L 07/29/2024 3:11 PM [facility] Chloride 104 98 - 107 mMol/L 07/29/2024 3:11 PM [facility] Carbon Dioxide 19(L) 22 - 31 mMol/L 07/29/2024 3:11 PM [facility] Anion Gap 15 5 - 15 mMol/L 07/29/2024 3:11 PM [facility] Calcium 8.0(L) 8.5 - 10.5 mg/dL 07/29/2024 3:11 PM [facility] Protein, Total 6.0(L) 6.1 - 8.0 g/dL 07/29/2024 3:11 PM [facility] Albumin 3.6 3.2 - 5.2 g/dL 07/29/2024 3:11 PM [facility] Aspartate Aminotransferase 07/29/2024 3:11 PM [facility] Comment:Unable to report due to hemolysis. Alanine Aminotransferase 56(H) 0 - 55 unit/L 07/29/2024 3:11 PM [facility] Alkaline Phosphatase 58 40 - 130 unit/L 07/29/2024 3:11 PM [facility] Bilirubin, Total 0.5 <=1.3 mg/dL 07/29/2024 3:11 PM [facility] Est Glomerular Filtration Rate - Male 91 mL/min/1. 73 m?? 07/29/2024 3:[address] [facility] Comment: This patient's estimated GFR [...] PM EST Vahe Marvin MD CHEMISTRY ORDERABLES [facility] [place] [place] [address] * (ABNORMAL) Troponin - Single (07/29/2024 2:03 PM EST) Troponin-T, High Sensitivity >10,000(H ) <=22 ng/L 07/29/2024 2:[address] [facility] Comment: This patient's troponin T [...] troponin value can be found in the [facility] Laboratory Test Catalog Troponin - https://one-.testcatalog.org/catalogs/565/files/60858 Reference: Fourth Victor Definition of Myocardial Infarction. Journal of the [employer] College [employer] 2018;72:4427-0477 Blood VENOUS BLOOD SPECIMEN / Unknown Venipuncture / Unknown 07/29/2024 2:03 PM EST 07/29/2024 2:14 PM EST Vahe Marvin MD CHEMISTRY ORDERABLES [facility] [place] [address] * (ABNORMAL) Blood Gas, Venous POC (07/29/2024 2:01 PM EST) pH, Venous 7.30(L) 7.32 - 7.42 07/29/2024 2:[address] [facility] PCO2, Venous 42 38 - 58 mmHg 07/29/2024 2:02 PM [facility] PO2, Venous 39 16 - 65 mmHg 07/29/2024 2:02 PM [facility] Bicarbonate, Venous 20.1(L) 22 - 31 mmol/L 07/29/2024 2:02 PM [facility] Base Excess, Venous -6.4(L) 1.9 - 4.5 mmol/L 07/29/2024 2:02 PM [facility] Hemoglobin, Venous 14.2 13.7 - 16.5 g/dL 07/29/2024 2:02 PM [facility] Oxyhemoglobin, Venous 69.3 % 07/29/2024 2:02 PM [facility] Carboxyhemoglobin , Venous 0.8 % 07/29/2024 2:02 PM [facility] Comment: Nonsmokers: 0.5-1.5% COHB ?? Smokers: Variable ??but usually less than 10% ?? Toxic: 20-30% COHB ?? Lethal: Greater than 60% COHB Methemoglobin, Venous 0.3 <=1.5 % 07/29/2024 2:[address] [facility] Sodium, Venous 137 135 - 145 mmol/L 07/29/2024 2:[address] [facility] Potassium, Venous 3.6 3.5 - 5.0 mmol/L 07/29/2024 2:[address] [facility] Chloride, Venous 103 98 - 107 mmol/L 07/29/2024 2:[address] [facility] Glucose, Venous 229(H) 65 - 199 mg/dL 07/29/2024 2:[address] [facility] Comment:Glucose Concentratio n >=200 mg/dL plus symptoms is consistent with Diabetes Mellitus. Lactate, Venous 3.1(H) 0.5 - 2.2 mmol/L 07/29/2024 2:02 PM [facility] Ionized Calcium, Venous 1.11(L) 1.15 - 1.33 mmol/L 07/29/2024 2:[address] [facility] Blood VENOUS BLOOD SPECIMEN / Unknown 07/29/2024 2:01 PM EST 07/29/2024 2:02 PM EST Vahe Marvin MD POINT OF CARE TEST O RDERABLES Performing Organization Address City/State/[facility] Co de Phone Number [facility] [place] [address] * CARDIAC CATHETERIZATION (07/29/2024 1:20 PM EST) Anatomical Region Laterality Modality Other Narrative 07/29/2024 2:02 PM EST ?[facility] ? Cardiac Catheterization/Intervention Report ? Patient Name: Korey Montoya. ? Procedure Date: 07/29/2024 ? A #: [id number] ? Primary Physician: Shavonne, Vahe S ? Case #: [id number] ? File Name: [id number] ? Catheterization Order Number: [id number] ? [facility] ? Final Report [place], [place] ? Patient Name: ? Korey P. Montoya ?ID#: ?[id number] ? : ?1950 ? Procedure Date: ? July 29, 2024 ?Case #: ? [id number] ? Room: ? 5 ? Case Physician: [...] procedure was Emergent. The indication for ?the powerhouse laborer visit is ACS less than or equal [...] 3.5 guiding catheter and a 3.[address] ??20 Mhz using ?Manual pullback. ??Imaging [...] A premounted 3.00 x 22 mm Jeison Muscogee (LOW) was deployed ? with a maximum [...] atmospheres. ??A premounted 3.00 x 08 mm Marion Muscogee (LOW) ? was deployed with a maximum [...] dose administered prior to arrival in the powerhouse laborer. ?Recommended anti-platelet/anti-thrombotic regimen: ?Start aspirin 81 mg daily now and continue for 12 months then stop. ?Start clopidogrel 75 mg daily now and continue for indefinitely. ?These recommendations are made at the time of the intervention. Patient ?and provider preferences or a changing clinical situation may require ?modification of this regimen. Consult [facility] Interventional Cardiology for ?questions. ?The 1 year [...] able ?to start weaning his inotropes/vasopressors. A Amoret Colette catheter was ?placed demonstrating improvement in [...] ventricular assist device insertion, right heart ?catheterization, Amoret (flow directed cath) insertion, access site ?angiography, vascular ultrasound, venous line / sheath insert and vascular ?closure device. ? Vahe Marvin M.D. ? Electronically Signed by: Vahe Marvin M.D. ? Report Finalized: 07/29/2024 ??13:55 ? Report Last Ammended: 07/30/2024 ??10:15 ? Procedure Note Vahe Marvin MD - 07/30/2024 [facility] Cardiac Catheterization/Intervention Report Patient Name: Korey MontoyaToby Procedure Date: 07/29/2024 A #: [id number] Primary Physician: Vahe Marvin Case #: [id number] File Name: [id number] Catheterization Order Number: [id number] [facility] FinalReport [place], [place] Patient Name: Korey Montoya ID#:[id number] :1950 Procedure Date: July 29, 2024 Case [...] diagnostic procedure was Emergent. Theindication for the powerhouse laborer visit is ACS less than or equal [...] 3.5 guiding catheter and a 3.[address] 20 Mhzusing Manual pullback. Imaging was [...] The priority for the procedure was Emergent.[facility] procedure was STEMI-Immediate PCI [...] The lesion was predilated with a 2.00mm [id number] MM balloon with a maximum inflation pressure of 12atmospheres. A premounted 3.00 x 22 mm Marion Muscogee (LOW) wasdeployed with a maximum inflation pressure [...] atmospheres. A premounted 3.00 x 08 mm Marion Muscogee(LOW) was deployed with a maximum inflation pressure [...] dose administered prior to arrival in the powerhouse laborer. Recommended anti-platelet/anti-thrombotic regimen: Start aspirin 81 mg daily now and continue for 12 months then stop. Start clopidogrel 75 mg daily now and continue for indefinitely. These recommendations are made at the time of the intervention.Patient and provider preferences or a changing clinical situation mayrequire modification of this regimen. Consult [facility] Interventional Cardiologyfor questions. The 1 year bleeding [...] wereable to start weaning his inotropes/vasopressors. A Amoret Colette catheterwas placed demonstrating improvement in his [...] ventricular assist device insertion, right heart catheterization, Amoret (flow directed cath) insertion, access site angiography, vascular ultrasound, venous line / sheath insert andvascular closure device. Vahe Marvin M.D. Electronically Signed by: Vahe Marvin M.D. Report Finalized: 07/29/2024 13:55 Report Last Ammended: 07/30/2024 10:15 Vahe Marvin MD CARDIAC CATH ORDERAB LES * (ABNORMAL) BLOOD GAS, POC (07/29/2024 12:46 PM EST) Sodium, POC 139 135 - 145 mmol/L 07/30/2024 7:30 AM [facility] Potassium, POC 3.4(L) 3.5 - 5.0 mmol/L 07/30/2024 7:30 AM [facility] pH, POC 7.33(L) 7.35 - 7.45 07/30/2024 7:30 AM [facility] Ionized Calcium, POC 1.13(L) 1.15 - 1.33 mmol/L 07/30/2024 7:30 AM [facility] pCO2, POC 38 35 - 45 mmHg 07/30/2024 7:30 AM [facility] pO2, POC 94 85 - 104 mmHg 07/30/2024 7:30 AM [facility] Base Excess, POC -6.0(L) -3.0 - 3.0 mmol/L 07/30/2024 7:30 AM [facility] Hematocrit, POC 39.0(L) 40.5 - 48.5 %PCV 07/30/2024 7:30 AM [facility] Hemoglobin, POC 13.3(L) 13.7 - 16.5 g/dL 07/30/2024 7:30 AM [facility] Comment:The calculation of h emoglobin from hematocrit assumes a normal MCHC. Bicarbonate, POC 19.8(L) 20.0 - 26.0 mmol/L 07/30/2024 7:30 AM [facility] Carbon Dioxide, POC 21(L) 22 - 31 mmol/L 07/30/2024 7:30 AM [facility] Blood VENOUS BLOOD SPECIMEN / Unknown 07/29/2024 12:46 PM EST 07/30/2024 7:30 AM EST Vahe Marvin MD POINT OF CARE TEST O RDERABLES [facility] [place] [address] * (ABNORMAL) BLOOD GAS, POC (07/29/2024 12:12 PM EST) Sodium, POC 135 135 - 145 mmol/L 07/30/2024 7:30 AM [facility] Potassium, POC 3.8 3.5 - 5.0 mmol/L 07/30/2024 7:30 AM [facility] pH, POC 7.27(LLL) 7.35 - 7.45 07/30/2024 7:30 AM [facility] Ionized Calcium, POC 1.14(L) 1.15 - 1.33 mmol/L 07/30/2024 7:30 AM [facility] pCO2, POC 43 35 - 45 mmHg 07/30/2024 7:30 AM [facility] pO2, POC 131(H) 85 - 104 mmHg 07/30/2024 7:30 AM [facility] Base Excess, POC -7.0(L) -3.0 - 3.0 mmol/L 07/30/2024 7:30 AM [facility] Hematocrit, POC 36.0(L) 40.5 - 48.5 %PCV 07/30/2024 7:30 AM [facility] Hemoglobin, POC 12.2(L) 13.7 - 16.5 g/dL 07/30/2024 7:30 AM [facility] Comment:The calculation of h emoglobin from hematocrit assumes a normal MCHC. Bicarbonate, POC 19.7(L) 20.0 - 26.0 mmol/L 07/30/2024 7:30 AM [facility] Carbon Dioxide, POC 21(L) 22 - 31 mmol/L 07/30/2024 7:30 AM [facility] Blood VENOUS BLOOD SPECIMEN / Unknown 07/29/2024 12:12 PM EST 07/30/2024 7:30 AM EST Vahe Marvin MD POINT OF CARE TEST O RDERABLES [facility] [address] documented in this encounter Visit Diagnoses Diagnosis [...] based off of anti-Xa levels per the [facility] Anti-Xa Algorithm and inform the ECMO attending. [...] 20 mEq 100 mL/ hr [facility] Bag 07/30/2024 9:17 PM EST 20 [...] documented in this encounter Care Teams Maintenance Representative Relationship Specialty Start Date End Date Alexia Mtz APRN [address] [place] [address] PCP - General Family Medicine 07/30/24 documented as of this encounter
--- OUTSIDE RECORDS SUMMARY | 2024-08-27 10:11 | XMS_ITS | Encounter Summary ---
Author Organization [facility] Address [facility] [place] [address] Care Team Providers Care Rental Clerk Name Role Phone Yoel Artis Ute ALCALA Primary Care Provider [phone] Reason for Visit * Auth/Cert (Routine) Specialty Diagnoses / Procedures Referred By Theodore t Referred To Contact Diagnoses AIRO Procedures [employer] MILE[employer]SPORT AIRO [facility] Referral ID Status Reason Start Date Expiration Date Visits Re quested Visits Authorized [id number] 1 1 Encounter Details Date Type Department Care Team (Latest Contact Info) Description 07/29/2024 6:32 PM EST - 07/29/2024 11:59 PM EST Hospital Encounter [facility] at [address] [phone] Arvin Becerra MD [facility] [place] [address] Discharge Disposition: Home Social History Tobacco Use Types Packs/Day Years Used Date Smoking Tobacco: Former Cigarettes Smokeless Tobacco: Never Alcohol Use Standard Drinks/Week Comments Not Currently 0 (1 standard drink = 0.6 oz pur e alcohol) [facility] Utilities Answer Date Recorded In [...] any time in the past 12 m [facility], were you homeless or living in a usp (including now)? No 07/30/2024 DH IPV Inpatient [...] evening. 04/17/2023 08/04/2024 nitroGLYcerin (NITROLINGUAL) 400 mcg/spray [place], Non-AerosolIndications: Proctalgia fugax,Fecal smearing,Constipation, unspecified constipation type 1 spray to anus for proctalgia fugax as needed, not to exceed once daily 12 g 06/01/2023 08/04/2024 documented as of this encounter Plan of Treatment Upcoming Encounters Date Type Department Care Team (Late st Contact Info) Description 10/01/2024 10:00 AM EST Office Visit Cardiology at [address] [phone] Mushtaq Murphy APRN documented as of this encounter Visit Diagnoses Not on filedocumented in this encounter Care Teams Rental Clerk Relationship Specialty Start Date End Date Yoel Artis APRN [address] [place] [address] PCP - General Internal Medicine 11/18/22 07/29/24 documented as of this encounter
--- OUTSIDE RECORDS SUMMARY | 2024-08-27 10:11 | XMS_ITS | Encounter Summary ---
[place] [address] Care Team Providers Care Biometrics Technician Name Role Phone Yoel Artis FREDRICK Primary Care Provider [phone] Encounter Details Date Type Department Care Team (Late st Contact Info) Description 01/16/2024 Interpretation Only [facility] [address] [place] [address] Chaparro Montana MD [address] [place] [address] Social History Tobacco Use Types Packs/Day Years [...] 10:00 AM EST Office Visit Cardiology at [address] [phone] Mushtaq Murphy APRN documented as of this encounter Procedures Procedure Name Priority Date/Time Associated Diagnosis Comments XR CHEST ONE VIEW STAT 01/16/2024 4:0 4 PM EDT documented in this encounter Results * XR Chest One View (01/16/2024 4:04 PM EDT) PT CLASS E RAD ADMITDTTM [id number] [facility] PT RAD INFO [id number]^Jordy henry^Chaparro RAD EXAM DESC XCXR1^XR Chest 1 View^RIS [facility] WORKSTATION ID [id number] [facility] Anatomical Region Laterality Modality Chest N/A [...] have questions please contact the health care trainer that requested your imaging first. ? Narrative 01/16/2024 4:08 PM EDT EXAMINATION: XR [...] who have questions please contactthe health care trainer that requested your imaging first. Chaparro Montana MD IMG DX ORDERABLES documented in this encounter Visit Diagnoses Not on filedocumented in this encounter Care Teams Biometrics Technician Relationship Specialty Start Date End Date Yoel Artis APRN [address] [place] [address] PCP - General Internal Medicine 11/18/22 07/29/24 documented as of this encounter
--- OUTSIDE RECORDS SUMMARY | 2024-08-27 10:11 | XMS_ITS | Encounter Summary ---
Author Organization [place] [address] Care Team Providers Care Ui Developer Name Role Phone Alexia Mtz VEST TAILOR Primary Care Provider [phone] Encounter Details Date Type Department Care Team (Late st Contact Info) Description 06/25/2024 Lab [place] [address] Aubrey Cali MD [address] [place] [address] Pyuria Social History Tobacco Use Types Packs/Day [...] AM EST Office Visit Cardiology at [address] [phone] Mushtaq Murphy APRN documented as of this encounter Procedures Procedure Name Priority Date/Time Associated Diagnosis Comments URINE CULTURE Routine 06/25/2024 11:55 AM EDT Pyuria documented in this encounter Results * Urine culture (06/25/2024 11:55 AM EDT) Urine Culture No growth 06/26/2024 12:22 PM EDT [facility] Urine URINE SPECIMEN OBTAINED BY CLEAN CATCH PROCEDURE / Unknown 06/25/2024 11:55 AM EDT 06/25/2024 5:18 PM EDT Aubrey Cali MD MICROBIOLOGY - GENER AL ORDERABLES [facility] [place] [address] documented in this encounter Visit Diagnoses Diagnosis Pyuria Other nonspecific finding on examination of urine documented in this encounter Care Teams Ui Developer Relationship Specialty Start Date End Date Alexia Mtz, VEST TAILOR [address] [place] [address] PCP - General Family Medicine 07/30/24 documented as of this encounter
--- OUTSIDE RECORDS SUMMARY | 2024-08-27 10:11 | XMS_ITS | Encounter Summary ---
[place] [address] Care Team Providers Care Director Experimental Medicine Name Role Phone Yoel Artis FREDRICK Primary Care Provider [phone] Encounter Details Date Type Department Care Team (Late st Contact Info) Description 07/28/2024 Interpretation Only [address] [phone] Quinten Coffey MD [address] [place] [address] Social History Tobacco Use Types Packs/Day Years [...] 10:00 AM EST Office Visit Cardiology at [address] [phone] Mushtaq Murphy APRN documented as of this encounter Procedures Procedure Name Priority Date/Time Associated Diagnosis Comments XR CHEST ONE VIEW STAT 07/28/2024 10: 22 AM EST documented in this encounter Results * XR Chest One View (07/28/2024 10:22 AM EST) PT CLASS E RAD ADMITDTTM [id number] RAD PT RAD INFO [id number]^Alexx ^Quinten RAD EXAM DESC XCXR1^XR Chest 1 [...] have questions please contact the health care navigator that requested your imaging first. ? Narrative [...] who have questions please contactthe health care navigator that requested your imaging first. Quinten Coffey MD IMG DX ORDERABLES documented in this encounter Visit Diagnoses Not on filedocumented in this encounter Care Teams Director Experimental Medicine Relationship Specialty Start Date End Date Yoel Artis APRN [address] [place] [address] PCP - General Internal Medicine 11/18/22 07/29/24 documented as of this encounter
--- OUTSIDE RECORDS SUMMARY | 2024-08-27 10:11 | XMS_ITS | Encounter Summary ---
[place] [address] Care Team Providers Care Printer Slotter Feeder Name Role Phone Alexia Mtz RADIO COMMUNICATIONS MECHANICIAN Primary Care Provider [phone] Encounter Details Date Type Department Care Team (Late st Contact Info) Description 07/29/2024 External [place] [phone] Social History Tobacco Use Types Packs/Day Years Used Date Smoking Tobacco: Former Cigarettes Smokeless Tobacco: Never Alcohol Use Standard Drinks/Week Comments Not Currently 0 (1 standard drink = 0.6 oz pur e alcohol) [facility] Utilities Answer Date Recorded In the [...] any time in the past 12 m [facility], were you homeless or living in a [...] AM EST Office Visit Cardiology at [address] [phone] Mushtaq Murphy APRN documented as of this encounter Procedures Procedure Name Priority Date/Time Associated Diagnosis Comments MISC EXTERNAL CARDIOLOGY RESULT Routine 07/29/2024 10:13 AM EST documented in this encounter Results * External Cardiology Result (07/29/2024 10:13 AM EST) Anatomical Region Laterality Modality Other Historical Provider EXTERNAL CARDIOLO GY RESULT documented in this encounter Visit Diagnoses Not on filedocumented in this encounter Care Teams Printer Slotter Feeder Relationship Specialty Start Date End Date Alexia Mtz APRN [address] [place] [address] PCP - General Family Medicine 07/30/24 documented as of this encounter
--- OUTSIDE RECORDS SUMMARY | 2024-08-27 10:11 | XMS_ITS | Encounter Summary ---
Author Organization [facility] Address [facility] [place] [address] Care Team Providers Care Power Generating Plant Operator Name Role Phone Yoel Artis Ute ALCALA Primary Care Provider [phone] Encounter Details Date Type Department Care Team (Late st Contact Info) Description 07/29/2024 Orders [place] [address] Susannah Watts PA [facility] [place] [address] Social History Tobacco Use Types Packs/Day Years Used Date Smoking Tobacco: Former Cigarettes Smokeless Tobacco: Never Alcohol Use Standard Drinks/Week Comments Not Currently 0 (1 standard drink = 0.6 oz pur e alcohol) [facility] Utilities Answer Date Recorded In the past 12 months has [employer], gas, oil, or water [employer] threatened to shut off services in your [...] any time in the past 12 m [facility], were you homeless or living in a jail (including now)? No 07/30/2024 IPV Inpatient Questions [...] 10:00 AM EST Office Visit Cardiology at [address] [phone] Mushtaq Murphy APRN documented as of this encounter Procedures Procedure Name Priority Date/Time Associated Diagnosis Comments ECHOCARDIOGRAM TRANSTHORACIC Routine 07/30/2024 1:41 AM EST documented in this encounter Results * Echocardiogram Transthoracic (07/30/2024 1:41 AM EST) Anatomical Region Laterality Modality Cardiac Other 07/30/2024 1:41 AM EST Narrative 07/30/2024 8:23 AM EST [address] [place] [address] ? Echocardiogram Report Name: KOREY BERMUDEZ ? Study Date: 07/30/2024 01:41 AM : 1950 ? Height: 168 cm Age: 74 yrs ? Weight: 5.9 kg Gender: Male ?BSA: 0.63 m2 Performed By: Beatris Ching MD Reason For Study: STEMI, [place] History: ASCVD, HTN, HLD Interpreting Fellow: Beatris Ching. Interpretation Summary This is a limited study performed by a fellow remediation bioanalytics consultant to evaluate for cardiogenic shock with impella [...] study available for comparison. Procedure Limited - 81595. Suboptimal quality. There is sinus bradycardia. Left [...] Note Kathleen Banda MD - 07/30/2024 [address] [place] [address] Echocardiogram Report Name: LARA KOREY Kyrie Study Date: 07/30/2024 01:41AM : 1950 Height: 168 cm Age: 74 yrs Weight: 5.9 kg Gender: Male BSA: 0.63 m2 Performed By: Beatris Ching MD Reason For Study: STEMI, VT History: ASCVD, HTN, HLD Interpreting Fellow: Beatris Ching. Interpretation Summary This is a limited study performed by a fellow remediation bioanalytics consultant to evaluate forcardiogenic shock with impella in. [...] study available for comparison. Procedure Limited - 24508. Suboptimal quality. There is sinus bradycardia. Left [...] on filedocumented in this encounter Care Teams Power Generating Plant Operator Relationship Specialty Start Date End Date Yoel Arits APRN [address] [place] [address] PCP - General Internal Medicine 11/18/22 07/29/24 documented as of this encounter
--- OUTSIDE RECORDS SUMMARY | 2024-08-27 10:11 | XMS_ITS | Encounter Summary ---
Author Organization [facility] Address [facility] [place] [address] Care Team Providers Care Loss Prevention Analyst Name Role Phone Yoel Artis FREDRICK Primary Care Provider [phone] Encounter Details Date Type Department Care Team (Late st Contact Info) Description 07/29/2024 [place] [phone] Ivan Hernandez MD [facility] [place] [address] Social History Tobacco Use Types Packs/Day Years Used Date Smoking Tobacco: Former Cigarettes Smokeless Tobacco: Never Alcohol Use Standard Drinks/Week Comments Not Currently 0 (1 standard drink = 0.6 oz pur e alcohol) [facility] Utilities Answer Date Recorded In the past 12 months has e [employer], gas, oil, or water [employer] threatened to shut off services in your [...] any time in the past 12 m [facility], were you homeless or living in [...] 9:50 AM Hospital to which patient presented: [facility] If Hospital to which patient presented= [facility]: ED Walk In Medical History (prior to [...] Unfractionated Heparin Plan STEMI Alert called: Yes Senior Licensing Manager Activated by: Java Engineer Initial Disposition: Admit Senior Licensing Manager documented in this encounter Plan of Treatment Upcoming Encounters Date Type Department Care Team (Late st Contact Info) Description 10/01/2024 10:00 AM EST Office Visit Cardiology at [address] [phone] Mushtaq Murphy APRN documented as of this encounter Visit Diagnoses Not on filedocumented in this encounter Care Teams Loss Prevention Analyst Relationship Specialty Start Date End Date Yoel Artis APRN [address] [place] [address] PCP - General Internal Medicine 11/18/22 07/29/24 documented as of this encounter
--- OUTSIDE RECORDS SUMMARY | 2024-08-27 10:11 | XMS_ITS | Encounter Summary ---
Author Organization [facility] [place] [address] Care Team Providers Care Pattern Fitter Name Role Phone Yoel Artis FREDRICK Primary Care Provider Encounter Details Date Type Department Care Team (Late st Contact Info) Description 01/16/2024 5:46 PM EDT - 01/16/2024 11:59 PM EDT Hospital Encounter [facility] [address] [place] [id number] Chaparro Montana MD [address] [place] [address] Discharge Disposition: Home Social History Tobacco Use [...] evening. 04/17/2023 08/04/2024 nitroGLYcerin (NITROLINGUAL) 400 mcg/spray [place], Non-AerosolIndications:P roctalgia fugax,Fecal smearing,Constipation, unspecified constipation type 1 spray to anus for proctalgia fugax as needed, not to exceed once daily 12 g 06/01/2023 08/04/2024 documented as of this encounter Plan of Treatment Upcoming Encounters Date Type Department Care Team (Late st Contact Info) Description 10/01/2024 10:00 AM EST Office Visit Cardiology at [address] [phone] Mushtaq Murphy APRN documented as of this encounter Procedures Procedure Name Priority Date/Time Associated Diagnosis Comments URINE CULTURE Routine 01/16/2024 4:00 PM EDT documented in this encounter Results * Urine culture (01/16/2024 4:00 PM EDT) Urine Culture No growth (Less than 1,000 cfu/ml). [facility] Urine 01/16/2024 4:00 PM EDT 01/16/2024 10:36 PM EDT Narrative Resulting Agency Comment Spec In Lab Chaparro Montana MD MICROBIOLOGY - [facility] ORDERABLES [facility] [place] [address] documented in this encounter Visit Diagnoses Not on filedocumented in this encounter Care Teams Pattern Fitter Relationship Specialty Start Date End Date Yoel Artis APRN [address] [place] [id number] PCP - General Internal Medicine 11/18/22 07/29/24 documented as of this encounter
--- OUTSIDE RECORDS SUMMARY | 2024-08-27 10:11 | XMS_ITS | Encounter Summary ---
[place] [address] Care Team Providers Care Etiologist Name Role Phone Yoel Artis Ute ALCALA Primary Care Provider [phone] Reason for Visit * Auth/Cert (Routine) Specialty Diagnoses / Procedures Referred By Theodore t Referred To Contact Diagnoses STEMI (ST elevation myocardial infarction) STEMI Procedures ER IPI Vahe Marvin MD [facility] [place] [address] [facility] Referral ID Status Reason Start Date Expiration Date Visits Re quested Visits Authorized [id number] 1 1 Encounter Details Date Type Department Care Team (Late st Contact Info) Description 07/29/2024 12:00 PM EST - 07/29/2024 12:54 PM EST [place] [address] Vahe Marvin MD [facility] [place] [address] CARDIAC CATHETERIZATION Social History Tobacco Use Types Packs/Day Years Used Date Smoking Tobacco: Former Cigarettes Smokeless Tobacco: Never Alcohol Use Standard Drinks/Week Comments Not Currently 0 (1 standard drink = 0.6 oz pur e alcohol) [facility] Utilities Answer Date Recorded In the past 12 months has [employer], gas, oil, or water company threatened [...] any time in the past 12 m [facility], were you homeless or [...] Korey Montoya Patient Age: 74 y.o. Language: Anguillan Race: White Ethnicity: Not nor Admit date: [...] contact your inpatient physician through the [facility] Mother Tester . Issues afterhours and on weekends will [...] Patient transferred via air ambulance to [facility] on 07/29 for LHC and LOW to [...] Was transferred via air ambulance to [facility] for further management and LHC demonstrated 100% occlusion. No significant RCA, LMCA, or LCX disease. LOW placed in LAD with some residual distal disease meriting placement of overlapping distal stent. TTE showed apical akinesis and inferior hypokinesis with EF 20%. RHC showed elevated filling pressures. Impella placed and P-level 6 at time of transfer to [facility]. CI initially 1.97, improved to 2.2 After [...] the next year. Access was via right NEWSPAPER LIBRARY MANAGER and this sitewas clean, dry and intact [...] for Chest pain. Replaces: nitroGLYcerin 400 mcg/spray [place], Non-Aerosol 0.4 mg Quantity: 90 tablet Refills: [...] Refills: 0 STOPPED Medications nitroGLYcerin 400 mcg/spray [place], Non-Aerosol Commonly known as: NITROLINGUAL Replaced by: [...] of one year. After this time, your vice president of academic affairs will determine if you need to continue [...] away. Stay on the phone. The emergency thermoforming operator will tell you what to do. [...] appointments: During 8am-5pm Tuesday through Tuesday call [phone] to speak with a nurse in the cardiology clinic All other times call [phone] and ask to speak to the auto slip cover installer strike on machine operator. Follow up Appointments: PCP Alexia Mtz, VIRTUAL CUSTOMER ASSISTANT [phone]. Please call to establish a follow up appointment within 1-2 weeks of discharge. Cardiology. Referral to heart failure has been sent. General Instructions None Future Appointments and Orders Future Orders Complete By Expires Referral to Cardiac Rehab [[id number] Custom] As directed Process Instructions: If no progress note charted, please enter Clinical details in comments. Scheduling Instructions: Questions: My question or request is: STEMI, PCI- cardiac rehab at [facility] Referral to Cardiology [REF12 Custom] As directed [...] of one year. After this time, your vice president of academic affairs will determine if you need to continue [...] away. Stay on the phone. The emergency thermoforming operator will tell you what to do. [...] appointments: During 8am-5pm Tuesday through Tuesday call [phone] to speak with a nurse in the cardiology clinic All other times call [phone] and ask to speak to the auto slip cover installer strike on machine operator. Follow up Appointments: PCP Alexia Mtz, VIRTUAL CUSTOMER ASSISTANT [phone]. Please call to establish a follow up [...] Patient transferred via air ambulance to [facility] on 07/29 for LHC and LOW to LAD for 100% occlusion Social History: Pt lives with his in a 1 level home with 2 NAOMI. 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 He [...] Total time: 35 (tef) minutes Time IN/OUT: 7240-6363 ZAIDA DUBOSE PT Pager: [phone] Physical Therapy Inpatient Rehabilitation Department * Yrn Velazquez MD - 08/03/2024 10:38 AM EST CV HOSPITALIST 2 - [facility] DAILY PROGRESS NOTE Page [phone] to reach a provider 04/04 Admit Date: [...] or before 29-JUL-2024) Lateral injury pattern ACUTE CT / STEMI Abnormal ECG When compared with [...] Compared to the overnight study by the strike on machine operator fellow the impella position is stable. 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 [facility] 07/29/24 Conclusions: * One vessel coronary artery disease (LAD) * Mild pulmonary hypertension * Elevated pulmonary capillary wedge pressure * Successful stent insertion of the proximal LAD lesion * See Dual Antiplatelet (DAPT) Recommendations above * Successful impella placement for cardiogenic shock. Telemetry: I have personally reviewed and interpreted the telemetry from the last 24 hours. [facility]: ASSESSMENT: Korey Montoya is a 74 y.o. male w/ PMH of hypertension, HLD, and BPH who presents for chief concern of chest pain after being found to have ST elevations on EKG. Patient transferred via air ambulance to [facility] on 07/29 for LHC and LOW to [...] be determined OT: PCP Alexia Mtz, FREDRICK [phone] * Zaida Dubose, PT - 08/02/2024 2:08 PM EST Physical Therapy Evaluation Patient profile: Korey Montoya is a 74 y.o. male w/ PMH of hypertension, HLD, and BPH who presents for chief concern of chest pain after being found to have ST elevations on EKG. Patient transferred via air ambulance to [facility] on 07/29 for LHC and LOW to LAD for 100% occlusion Social History: Pt lives with his in a 1 level home with 2 NAOMI. 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 He drives. home to assist as needed. Precautions/Special Considerations: At risk to fall; recent STEMI Mobility and Positioning Recommendations: OOB to chair with 1 cg assist; rolling walker Pt to ambulate 3-4x/daily with 1 assist; walker or trial without device Please encourage up to chair for meal times as able. Pt seen for evaluation today in the [facility]. Pt in the bed at start of [...] Total time: 37 (eval) minutes Time IN/OUT: 3024-7169 ZAIDA DUBOSE PT Pager: [phone] Physical Therapy Inpatient Rehabilitation Department * Gagan [...] Patient transferred via air ambulance to [facility] on 07/29 for LHC and LOW to LAD for 100% occlusion. TTE showed apical akinesis and inferior hypokinesis with EF 20%. RHC showed elevated filling pressures. Impella placed and P-level 6 at time of transfer to [facility]. CI initially 1.97, improved to 2.2 After [...] PCP: Alexia Mtz APRN PCP phone number: [phone] Date of Admission: 07/29/2024 ( Hospital Day 4 days ) Attending:Bridgette Stauffer MD ID: Korey Montoya is a 74 y.o. male w/ PMH of hypertension, HLD, and BPH on Hospital Day4 for chief concern of chest pain after being found to have ST elevations on EKG. Patient transferred via air ambulance to [facility] on 07/29 for LHC and LOW to [...] 07/29/24 1621 PHART 7.48* 7.44 7.38 7.37 GQN2FGE 29* 29* 34* 36 PO2ART 71* 109* 141* 71* [id number] 20.6 19.4* 19.5* 20.4 VBG (Venous Blood Gas) Recent Labs 07/29/24 1401 PHVEN 7.30* PO2VEN 39 JRV6GSI 20.1* Mixed Venous Sat No results for input(s): I9ZETV4 in the last 168 hours. Objective: Vitals [...] 07/29/24 1621 PHART 7.48* 7.44 7.38 7.37 HYN0WND 29* 29* 34* 36 PO2ART 71* 109* 141* 71* SZX7UYL 20.6 19.4* 19.5* 20.4 VBG (Venous Blood Gas) Recent Labs 07/29/24 1401 PHVEN 7.30* PO2VEN 39 ESS6VFS 20.1* Mixed Venous Sat No results for input(s): N3HNYA9 in the last 168 hours. Microbiology: Microbiology Results (Last 30 days) Procedure Component Value Units Date/Time Blood culture [[id number]] Collected: 07/29/24 160 Lab Status: Preliminary result Specimen: Blood, Venous Updated: 08/01/24 170 Blood Culture No growth at 72 hours Blood culture [[id number]] Collected: 07/29/241607 Lab Status: Preliminary result Specimen: Blood, Venous Updated: 08/01/24 170 Blood Culture No growth at 72 hours Imaging: Results for orders placed or performed during the hospital encounter of 07/29/24 XR Chest One View (Exam End: 07/29/2024 2:30 PM) Result Value WORKSTATION ID [id number] Impression 1. No pulmonary edema. 2. No pleural effusion. 3. No pneumothorax. Thank you for letting us participate in the care of this patient. If you are a health care provider and have any questions regarding this report, please contact the number below. For patients who have questions please contact the health ambulatory care that requested your imaging first. Electronically signed by: Chris Candelaria MD, [facility] ([phone]), at 07/29/2024 3:21 PM TTE ( 07/30/24) [...] Compared to the overnight study by the strike on machine operator fellow the impella position is stable. The [...] Patient transferred via air ambulance to [facility] on 07/29 for LHC and LOW to [...] today). Transfer to floor. Krystal Parker MD, [facility], [facility] Staff Chisel Trimmer welding machine operator thermit * Gagan Catherine MD - 08/01/2024 11:12 [...] Patient transferred via air ambulance to [facility] on 07/29 for LHC and LOW to LAD for 100% occlusion. TTE showed apical akinesis and inferior hypokinesis with EF 20%. RHC showed elevated filling pressures. Impella placed and P-level 6 at time of transfer to [facility]. CI initially 1.97, improved to 2.2 After impella. Received about 3 L of fluid during procedural course. Patient initially required norepinephrine 30, epinephrine 10, and vasopressin 0.04 for hemodynamic support, which was weaned upon arrival to [facility] to norepinephrine 20and levo 0.04 N - [...] PCP: Alexia Mtz APRN PCP phone number: [phone] Date of Admission: 07/29/2024 ( Hospital Day 3 days ) Attending:Krystal Parker MD ID: Korey Montoya is a 74 y.o. male w/ PMH of hypertension, HLD, and BPH on Hospital Day3 for chief concern of chest pain after being found to have ST elevations on EKG. Patient transferred via air ambulance to [facility] on 07/29 for LHC and LOW to [...] 07/29/24 1621 PHART 7.48* 7.44 7.38 7.37 KXI4MTF 29* 29* 34* 36 PO2ART 71* 109* 141* 71* DIJ9BKK 20.6 19.4* 19.5* 20.4 VBG (Venous Blood Gas) Recent Labs 07/29/24 1401 PHVEN 7.30* PO2VEN 39 HSR8TUQ 20.1* Mixed Venous Sat No results for input(s): Y2NHDC1 in the last 168 hours. PA Catheter [...] 07/29/24 1621 PHART 7.48* 7.44 7.38 7.37 VYG2VEE 29* 29* 34* 36 PO2ART 71* 109* 141* 71* COV0HVY 20.6 19.4* 19.5* 20.4 VBG (Venous Blood Gas) Recent Labs 07/29/24 1401 PHVEN 7.30* PO2VEN 39 YSP8ZZS 20.1* Mixed Venous Sat No results for input(s): G4UDOZ2 in the last 168 hours. Microbiology: Microbiology Results (Last 30 days) Procedure Component Value Units Date/Time Blood culture [[id number]] Collected: 07/29/241607 Lab Status: Preliminary result Specimen: Blood, Venous Updated: 07/31/241700 Blood Culture No growth at 48 hours Blood culture [[id number]] Collected: 07/29/241607 Lab Status: Preliminary result Specimen: Blood, Venous Updated: 07/31/241700 Blood Culture No growth at 48 hours Imaging: Results for orders placed or performed during the hospital encounter of 07/29/24 XR Chest One View (Exam End: 07/29/2024 2:30 PM) Result Value WORKSTATION ID [id number] Impression 1. No pulmonary edema. 2. No pleural effusion. 3. No pneumothorax. Thank you for letting us participate in the care of this patient. If you are a health care provider and have any questions regarding this report, please contact the number below. For patients who have questions please contact the health ambulatory care that requested your imaging first. Electronically signed by: Chris Candelaria MD, [facility] ([phone]), at 07/29/2024 3:21 PM TTE ( 07/30/24) [...] Compared to the overnight study by the strike on machine operator fellow the impella position is stable. The [...] Patient transferred via air ambulance to [facility] on 07/29 for LHC and LOW to [...] with him; questions answered. Krystal Parker MD, [facility], [facility] Staff Chisel Trimmer welding machine operator thermit * Krystal Parker MD - 07/31/2024 1:06 [...] Patient transferred via air ambulance to [facility] on 07/29 for LHC and LOW to LAD for 100% occlusion. TTE showed apical akinesis and inferior hypokinesis with EF 20%. RHC showed elevated filling pressures. Impella placed and P-level 6 at time of transfer to [facility]. CI initially 1.97, improved to 2.2 After impella. Received about 3 L of fluid during procedural course. Patient initially required norepinephrine 30, epinephrine 10, and vasopressin 0.04 for hemodynamic support, which was weaned upon arrival to [facility] to norepinephrine 20and levo 0.04 N - [...] PCP: Alexia Mtz APRN PCP phone number: [phone] Date of Admission: 07/29/2024 ( Hospital Day 2 days ) Attending:Krystal Parker MD ID: Korey Montoya is a 74 y.o. male w/ PMH of hypertension, HLD, and BPH on Hospital Day2 for chief concern of chest pain after being found to have ST elevations on EKG. Patient transferred via air ambulance to [facility] on 07/29 for LHC and LOW to [...] 0057 07/29/24 1621 PHART 7.44 7.38 7.37 WIV9QSF 29* 34* 36 PO2ART 109* 141* 71* IRL3MYD 19.4* 19.5* 20.4 VBG (Venous Blood Gas) Recent Labs 07/29/24 1401 PHVEN 7.30* PO2VEN 39 SML8WOU 20.1* Mixed Venous Sat No results for input(s): O8HZOE7 in the last 168 hours. PA Catheter [...] 0057 07/29/24 1621 PHART 7.44 7.38 7.37 KOQ7QHH 29* 34* 36 PO2ART 109* 141* 71* GJX3FFH 19.4* 19.5* 20.4 VBG (Venous Blood Gas) Recent Labs 07/29/24 1401 PHVEN 7.30* PO2VEN 39 WSN6CRW 20.1* Mixed Venous Sat No results for input(s): R5NSJW4 in the last 168 hours. Microbiology: Microbiology Results (Last 30 days) Procedure Component Value Units Date/Time Blood culture [[id number]] Collected: 07/29/241607 Lab Status: Preliminary result Specimen: Blood, Venous Updated: 07/30/241700 Blood Culture No Growth at 18-24 hrs. Blood culture [[id number]] Collected: 07/29/241607 Lab Status: Preliminary result Specimen: Blood, Venous Updated: 07/30/241700 Blood Culture No Growth at 18-24 hrs. Imaging: Results for orders placed or performed during the hospital encounter of 07/29/24 XR Chest One View (Exam End: 07/29/2024 2:30 PM) Result Value WORKSTATION ID [id number] Impression 1. No pulmonary edema. 2. No pleural effusion. 3. No pneumothorax. Thank you for letting us participate in the care of this patient. If you are a health care provider and have any questions regarding this report, please contact the number below. For patients who have questions please contact the health ambulatory care that requested your imaging first. Electronically signed by: Chris Candelaria MD, [facility] ([phone]), at 07/29/2024 3:21 PM TTE ( 07/30/24) [...] Compared to the overnight study by the strike on machine operator fellow the impella position is stable. The [...] Patient transferred via air ambulance to [facility] on 07/29 for LHC and LOW to [...] work to optimize volume status while continuing ukpxtuw-sjyxvd-nsryeroszb therapies at this time. Obtain comprehensive TTE. [...] Patient transferred via air ambulance to [facility] on 07/29 for LHC and LOW to LAD for 100% occlusion. TTE showed apical akinesis and inferior hypokinesis with EF 20%. RHC showed elevated filling pressures. Impella placed and P-level 6 at time of transfer to [facility]. CI initially 1.97, improved to 2.2 After impella. Received about 3 L of fluid during procedural course. Patient initially required norepinephrine 30, epinephrine 10, and vasopressin 0.04 for hemodynamic support, which was weaned upon arrival to [facility] to norepinephrine 20and levo 0.04 N - [...] PCP: Yoel Artis APRN PCP phone number: [phone] Date of Admission: 07/29/2024 ( Hospital Day 1 day ) Attending:Aubree Silverio MD ID: Korey Montoya is a 74 y.o. male w/ PMH of hypertension, HLD, and BPH on Hospital Day1 for chief concern of chest pain after being found to have ST elevations on EKG. Patient transferred via air ambulance to [facility] on 07/29 for LHC and LOW to [...] 0057 07/29/24 1621 PHART 7.44 7.38 7.37 DVZ6MUN 29* 34* 36 PO2ART 109* 141* 71* HIX2BSA 19.4* 19.5* 20.4 VBG (Venous Blood Gas) Recent Labs 07/29/24 1401 PHVEN 7.30* PO2VEN 39 IPU6DUZ 20.1* Lactate ( Last 12 hours) 1.3 >> 1.2 Mixed Venous Sat No results for input(s): G9QVEA1 in the last 168 hours. PA Catheter [...] 0057 07/29/24 1621 PHART 7.44 7.38 7.37 DSR2KJE 29* 34* 36 PO2ART 109* 141* 71* DIN0DAF 19.4* 19.5* 20.4 VBG (Venous Blood Gas) Recent Labs 07/29/24 1401 PHVEN 7.30* PO2VEN 39 GLI7VYB 20.1* Mixed Venous Sat No results for input(s): U7ANHF7 in the last 168 hours. Microbiology: Microbiology Results (Last 30 days) Procedure Component Value Units Date/Time Blood culture [[id number]] Collected: 07/29/24 1608 Lab Status: In process Specimen: Blood, Venous Updated: 07/29/24 1626 Blood culture [[id number]] Collected: 07/29/24 1608 Lab Status: In process Specimen: Blood, Venous Updated: 07/29/24 1615 Imaging: Results for orders placed or performed during the hospital encounter of 07/29/24 XR Chest One View (Exam End: 07/29/2024 2:30 PM) Result Value WORKSTATION ID [id number] Impression 1. No pulmonary edema. 2. No pleural effusion. 3. No pneumothorax. Thank you for letting us participate in the care of this patient. If you are a health care provider and have any questions regarding this report, please contact the number below. For patients who have questions please contact the health ambulatory care that requested your imaging first. Medications [...] Patient transferred via air ambulance to [facility] on 07/29 for LHC and LOW to [...] Patient transferred via air ambulance to [facility] on 07/29 for LHC and LOW to [...] Was transferred via air ambulance to [facility] for further management and C demo nstrated 100% occlusion. No significant RCA, LMCA, or LCX disease. LOW placed in LAD with some residual distal disease meriting placement of overlapping distal stent. TTE showed apical akinesis and inferior hypokinesis with EF 20%. RHC showed elevated filling pressures. Impella placed and P-level 6 at time of transfer to [facility]. CI initially 1.97, improved to 2.2 After impella. Received about 3 L of fluid during procedural course. Patient initially required norepinephrine, epinephrine, and vasopressin for hemodynamic support, which was weaned upon arrival to [facility] to norepinephrine 20 and levo 0.04 (epinephrine [...] (WRVU 4.57) performed by Brandan Mcgovern MD [facility] ENDOSCOPY Significant Family History: Family History Problem [...] mouth. Past Week nitroGLYcerin (NITROLINGUAL) 400 mcg/spray [place], Non-Aerosol 1 spray to anus for proctalgia [...] 3.5 guiding catheter and a 3.5 Fr [place] [facility] [place] ST 20 Mhz using Manual pullback. Imaging [...] priority for the procedure was Emergent. The [facility] indication for the procedure was STEMI-Immediate [...] A premounted 3.00 x 22 mm [place]ison [place] (LOW) was deployed with a maximum inflation [...] atmospheres. A premounted 3.00 x 08 mm [place] (LOW) was deployed with a maximum inflation [...] a limited study performed by a fellow strike on machine operator to evaluate for cardiogenic shock with impella [...] Compared to the overnight study by the strike on machine operator fellow the impella position is stable. The [...] Patient transferred via air ambulance to [facility] on 07/29 for LHC and LOW to [...] PCP: Yoel Artis APRN PCP phone number: [phone] Date of Admission: 07/29/2024 ( Hospital Day 0 days ) Attending:Aubree Silverio MD ID: Korey Montoya is a 74 y.o. male w/ PMH of hypertension, HLD, and BPH who presents for chief concern of chest pain after being found to have ST elevations on EKG. Patient transferred via air ambulance to [facility] on 07/29 for LHC and LOW to LAD for 100% occlusion. HPI: Korey Montoya is a 74 y.o. male w/ PMH of hypertension, HLD, and BPH who presents for chief concern of chest pain after being found to have ST elevations on EKG. Patient transferred via air ambulance to [facility] on 07/29 for LHC and LOW to [...] Was transferred via air ambulance to [facility] for further management and LHC demonstrated 100% [...] (WRVU 4.57) performed by Brandan Mcgovern MD [facility] ENDOSCOPY Family History Family History Problem Relation [...] Blood Gas) No results for input(s): PHART, OBZ9KIK, PO2ART, TBM6DLC, LACTATEVEN, WXN5RAE, PFRATIOART2 in the last 168 hours. VBG (Venous Blood Gas) Recent Labs 07/29/24 1401 PHVEN 7.30* PO2VEN 39 MBB5MRC 20.1* Mixed Venous Sat No results for input(s): E9QNPM1 in the last 168 hours. PA Catheter [...] Blood Gas) No results for input(s): PHART, IPP0WIE, PO2ART, DUV0BUO, LACTATEVEN, ZNL2SVF, PFRATIOART2 in the last 168 hours. VBG (Venous Blood Gas) Recent Labs 07/29/24 1401 PHVEN 7.30* PO2VEN 39 PQZ1ZRU 20.1* Mixed Venous Sat No results for input(s): U0HRJB7 in the last 168 hours. Microbiology: Microbiology [...] Patient transferred via air ambulance to [facility] on 07/29 for LHC. Found to have 100% occlusion of LAD for which he underwent LOW to LAD.Otherwise no other significant vessel disease. Fahad is currently hemodynamically tenuous but improving upon admission to [facility], requiring hemodynamic support with norepinephrine and vasopressin at time of admission along with mechanical support with Impella device. Reassuringly, he demonstrates decreasing pressor requirements since admission to [facility], with epinephrine completely weaned. He does demonstrate [...] MD Internal Medicine, PGY-3 Cardiology, [facility] 07/29/24 3:14 PM Cardiology Attending Note I [...] MD, FACP, FACC Section of Cardiovascular Medicine [facility] Operations Managerblood bank calendar control clerk [facility] [employer] [facility] This patient meets or [...] to the planned procedure. Hand Hygiene: The nondestructive tester did perform hand hygiene prior to arterial [...] ease. Good wave form. Ivan Hernandez MD Assignment Clerk Associated attestation - Rolando Yeh MD - [...] Fahad was quite active prior to his CT. 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 Given parameters for home exercise. He follows a heart healthy diet and is not overweight. His lipids are wnl. Participation in an outpatient cardiac rehabilitation program at [facility] was discussed. Patient agrees to a referral [...] MEDICARE Payor: [employer] MANAGED MEDICARE / [facility] / Product Type: [...] Date of Discharge: 08/04/2024 Gaby Wong RN, [phone] * Initial Assessments - Char Meza OT - 08/03/2024 10:00 AM EST Occupational Therapy Evaluation Patient profile: Korey Montoya is a 74 y.o. male admitted on 07/29/2024 w/ PMH of hypertension, HLD, and BPH who presents for chief concern of chest pain after being found to have ST elevations onEKG. Patient transferred via air ambulance to [facility] on 07/29 for LHC and LOW to LAD for 100% occlusion. Past Medical History: Diagnosis Date ADHD HLD (hyperlipidemia) HTN (hypertension) Tremor Past Surgical History: Procedure Laterality Date HAND SURGERY PRO COLONOSCOPY, REMV LESN, SNARE N/A 08/30/2023 COLONOSCOPY, POLYPECTOMY, REMOVAL LESION BY SNARE (WRVU 4.57) performed by Brandan Mcgovern MD [facility] ENDOSCOPY Social History: Patient lives with his . Home Setup: 2 NAOMI to a 1 level home. DME: none Baseline ADL/Mobility: Independent with ADLs and IADLs. Enjoys walking. able assist as needed. Precautions/Special Considerations: Full code. Risk for falls. Subjective: I have access to an [employer] gym. (Educated to wait for MD to [...] evaluation only Total Minutes, Occupational Therapy: 14 ([id number] (evaluation)) 2017 OT Evaluation Code Rationale: Diagnosis [...] and measurable assessment of functional outcome. Pager: [phone] Char Meza OT 08/03/2024 Occupational Therapy Rehabilitation [...] Appropriate) * Plan of Care - Edouard Wisodm RN - 08/02/2024 5:29 AM EST Problem: [...] (Interventions Implemented as Appropriate) Flowsheets (Taken 08/01/2024 7601) Outcome Summary: A+O, no pain. NSR. MAP [...] Procedure Note: Patient Name: Korey Montoya : [id number] MR#: [id number] Case Date: 07/31/2024 Mother Tester: Surgeons and Role: * Maldonado Luis MD - Primary * Quinten Charles PA - Physician Metal Tank Builder Preoperative diagnosis: shock, impella Postoperative diagnosis: * same * Procedure(s) performed: Impella removal form right NEWSPAPER LIBRARY MANAGER Access: Right NEWSPAPER LIBRARY MANAGER A time-out was conducted prior to the [...] Admitted From: Transfer from another hospital Location: [facility] Reason for Hospitalization: chest pain Past medical History: Past Medical History: Diagnosis Date ADHD HLD (hyperlipidemia) HTN (hypertension) Tremor Hospitalizations Within the Past 30 Days: no previous admission in last 30 days Current Decision-Making Capacity: Self If AD's have not been completed the following surrogate would be surrogate decision maker per [place] surrogate decision making law. (Only good for 180 days) Any patient receiving care in [place] must abide by [place] law. The hierarchy for surrogate decision making [...] The agent with financial power of assistant district attorney or a conservator appointed in accordance [...] it) Home Address confirmed as: Mailing Address: [address] [address] Physical Address: [address] [place] [address] Social & Family Supports: All names listed [...] points: Addiction likely Health/Prescription Coverage: Primary Insurance: [facility] MANAGED MEDICARE Payor: AARP MANAGED MEDICARE / Plan: [facility] MANAGED MEDICARE COMPLETE / Product Type: *No Product type* / Secondary Insurance: N/A ; Prescription Coverage: Yes Preferred Pharmacy: [address] - [address] [address] Topping Status: Patient is a : No Primary Care Provider confirmed: Alexia Mtz, VIRTUAL CUSTOMER ASSISTANT [phone] Patient/Caregiver Goals of Treatment: return home Potential [...] 07/29/2024 6:25 PM EST 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 CXR and EKG completed. [...] Procedure Note: Patient Name: Korey Montoya : [id number] MR#: [id number] Case Date: 07/29/2024 Mother Tester: Surgeons and Role: * Vahe Marvin MD - Primary * Susannah Watts PA - Physician Metal Tank Builder Preoperative diagnosis: STEMI Postoperative diagnosis: * STEMI, LAD Artery * * Cardiogenic Shock * Procedure(s) performed: [facility] Coronary angiogram Stent insertion coronary IVUS coronary Venous line insert [facility] [place] Catheter Vascular closure device Ventricular assist [...] x 22 mm to 14 deonna JEISON [place] with LIZ 3 flow. Residual distal disease at distal stent, overlapping distal stent was inserted with 3.0 x 8 mm JEISON [place]. Systolic's in the 80's sustained. Patient re [...] AM EST Office Visit Cardiology at [address] [phone] Mushtaq Murphy, FREDRICK Scheduled Orders Name Type [...] - 9.50 x10(3)/mc L 08/04/2024 6:39 AM [facility] Red Blood Cell 4.28(L) 4.58 - 5.54 x10(6)/mc L 08/04/2024 6:39 AM [facility] Hemoglobin 11.6(L) 13.7 - 16.5 g/dL 08/04/2024 6:39 AM [facility] Hematocrit 34.8(L) 40.5 - 48.5 % 08/04/2024 6:39 AM [facility] Mean Cell Volume 81.3(L) 82.9 - 93.1 fL 08/04/2024 6:39 AM [facility] Mean Cell Hemoglobin 27.1(L) 27.5 - 32.1 pg 08/04/2024 6:39 AM [facility] Mean Cell Hemoglobin Concentration 33.3 32.0 - 35.7 g/dL 08/04/2024 6:39 AM [facility] Platelet 178 145 - 357 x10(3)/mc L 08/04/2024 6:39 AM [facility] Mean Platelet Volume 10.6 7.6 - 12.9 fL 08/04/2024 6:39 AM [facility] RDW Standard Deviation 42.0 36.0 - 45.0 fL 08/04/2024 6:39 AM [facility] RDW coefficient of variation 14.3(H) 11.4 - 13.8 % 08/04/2024 6:39 AM [facility] NRBC% auto 0.0 % 08/04/2024 6:39 AM [facility] NRBC Absolute <0.01 <0.01 x10(3)/mc L 08/04/2024 6:39 AM [facility] Neutrophil % 72.1 % 08/04/2024 6:39 AM [facility] Neutrophil Absolute (ANC) - Automated 5.24 1.70 - 6.10 x10(3)/mc L 08/04/2024 6:39 AM [facility] Lymph % 16.8 % 08/04/2024 6:39 AM [facility] Lymph Absolute 1.22 0.90 - 3.20 x10(3)/mc L 08/04/2024 6:39 AM [facility] Monocyte % 8.5 % 08/04/2024 6:39 AM [facility] Monocyte Absolute 0.62 0.30 - 0.90 x10(3)/mc L 08/04/2024 6:39 AM [facility] Eos % 1.9 % 08/04/2024 6:39 AM [facility] Eos Absolute 0.14 0.00 - 0.40 x10(3)/mc L 08/04/2024 6:39 AM [facility] Basophil % 0.4 % 08/04/2024 6:39 AM [facility] Baso Absolute <0.04 0.00 - 0.10 x10(3)/mc L 08/04/2024 6:39 AM [facility] Immature Gran % 0.3 % 6:39 AM [facility] Immature Gran Absolute <0.04 0.00 - 0.04 x10(3)/mc L 08/04/2024 6:39 AM [facility] Blood VENOUS BLOOD SPECIMEN / Unknown Venipuncture / Unknown 08/04/2024 6:08 AM EST 08/04/2024 6:19 AM EST Bridgette Stauffer MD HEMATOLOGY ORDERABLE S [facility] [place] [address] * Magnesium (08/04/2024 6:08 AM EST) Magnesium 0.85 0.69 - 1.07 mMol/L 08/04/2024 7:07 AM [facility] Blood VENOUS BLOOD SPECIMEN / Unknown Venipuncture / Unknown 08/04/2024 6:08 AM EST 08/04/2024 6:19 AM EST Bridgette Stauffer MD CHEMISTRY ORDERABLES [facility] [place] [address] * Basic Metabolic Panel (08/04/2024 6:08 AM EST) Glucose 93 65 - 199 mg/dL 08/04/2024 7:07 AM [facility] Comment:Glucose Concentratio n >=200 mg/dL plus symptoms is consistent with Diabetes Mellitus. Blood Urea Nitrogen 14 10 - 20 mg/dL 08/04/2024 7:07 AM [facility] Creatinine 1.07 0.80 - 1.50 mg/dL 08/04/2024 7:07 AM [facility] Sodium 138 135 - 145 mMol/L 08/04/2024 7:07 AM [facility] Potassium 4.3 3.5 - 5.0 mMol/L 08/04/2024 7:07 AM [facility] Chloride 107 98 - 107 mMol/L 08/04/2024 7:07 AM [facility] Carbon Dioxide 23 22 - 31 mMol/L 08/04/2024 7:07 AM [facility] Anion Gap 8 5 - 15 mMol/L 08/04/2024 7:07 AM [facility] Calcium 8.5 8.5 - 10.5 mg/dL 08/04/2024 7:07 AM [facility] Est Glomerular Filtration Rate - Male 74 mL/min/1. 73 m?? 08/04/2024 7:07 AM [facility] Comment: This patient's estimated [...] AM EST Bridgette Stauffer MD CHEMISTRY ORDERABLES [facility] [place] [address] * (ABNORMAL) CBC (with Diff) (08/03/2024 5:16 AM EST) White Blood Cell 7.85 4.00 - 9.50 x10(3)/mc L 08/03/2024 5:29 AM [facility] Red Blood Cell 4.43(L) 4.58 - 5.54 x10(6)/mc L 08/03/2024 5:29 AM [facility] Hemoglobin 11.8(L) 13.7 - 16.5 g/dL 08/03/2024 5:29 AM [facility] Hematocrit 35.9(L) 40.5 - 48.5 % 08/03/2024 5:29 AM [facility] Mean Cell Volume 81.0(L) 82.9 - 93.1 fL 08/03/2024 5:29 AM [facility] Mean Cell Hemoglobin 26.6(L) 27.5 - 32.1 pg 08/03/2024 5:29 AM [facility] Mean Cell Hemoglobin Concentration 32.9 32.0 - 35.7 g/dL 08/03/2024 5:29 AM [facility] Platelet 142(L) 145 - 357 x10(3)/mc L 08/03/2024 5:29 AM [facility] Mean Platelet Volume 10.5 7.6 - 12.9 fL 08/03/2024 5:29 AM [facility] RDW Standard Deviation 42.5 36.0 - 45.0 fL 08/03/2024 5:29 AM [facility] RDW coefficient of variation 14.2(H) 11.4 - 13.8 % 08/03/2024 5:29 AM [facility] NRBC% auto 0.0 % 08/03/2024 5:29 AM [facility] NRBC Absolute <0.01 <0.01 x10(3)/mc L 08/03/2024 5:29 AM [facility] Neutrophil % 75.2 % 08/03/2024 5:29 AM [facility] Neutrophil Absolute (ANC) - Automated 5.91 1.70 - 6.10 x10(3)/mc L 08/03/2024 5:29 AM [facility] Lymph % 13.4 % 08/03/2024 5:29 AM [facility] Lymph Absolute 1.05 0.90 - 3.20 x10(3)/mc L 08/03/2024 5:29 AM [facility] Monocyte % 9.0 % 08/03/2024 5:29 AM [facility] Monocyte Absolute 0.71 0.30 - 0.90 x10(3)/mc L 08/03/2024 5:29 AM [facility] Eos % 1.7 % 08/03/2024 5:29 AM [facility] Eos Absolute 0.13 0.00 - 0.40 x10(3)/mc L 08/03/2024 5:29 AM [facility] Basophil % 0.4 % 08/03/2024 5:29 AM [facility] Baso Absolute <0.04 0.00 - 0.10 x10(3)/mc L 08/03/2024 5:29 AM EST [facility] Immature Gran % 0.3 % 5:29 AM [facility] Immature Gran Absolute <0.04 0.00 - 0.04 x10(3)/mc L 08/03/2024 5:29 AM [facility] Blood VENOUS BLOOD SPECIMEN / Unknown Venipuncture / Unknown 08/03/2024 5:16 AM EST 08/03/2024 5:23 AM EST Bridgette Stauffer MD HEMATOLOGY ORDERABLE S Performing Organization Address City/[facility]/ZIP Co de Phone Number [facility] [place] [address] * Magnesium (08/03/2024 5:16 AM EST) Pathologist [facility] Magnesium 0.89 0.69 - 1.07 mMol/L 08/03/2024 5:56 AM [facility] Blood VENOUS BLOOD SPECIMEN / Unknown Venipuncture / Unknown 08/03/2024 5:16 AM EST 08/03/2024 5:23 AM EST Bridgette Stauffer MD CHEMISTRY ORDERABLES Performing Organization Address City/[facility] Co de Phone Number [facility] [place] [address] * (ABNORMAL) Basic Metabolic Panel (08/03/2024 5:16 AM EST) Glucose 98 65 - 199 mg/dL 08/03/2024 5:56 AM [facility] Comment:Glucose Concentratio n >=200 mg/dL plus symptoms is consistent with Diabetes Mellitus. Blood Urea Nitrogen 16 10 - 20 mg/dL 08/03/2024 5:56 AM [facility] Creatinine 0.85 0.80 - 1.50 mg/dL 08/03/2024 5:56 AM [facility] Sodium 137 135 - 145 mMol/L 08/03/2024 5:56 AM EST [facility] Potassium 4.5 3.5 - 5.0 mMol/L 08/03/2024 5:56 AM [facility] Chloride 106 98 - 107 mMol/L 08/03/2024 5:56 AM [facility] Carbon Dioxide 21(L) 22 - 31 mMol/L 08/03/2024 5:56 AM [facility] Anion Gap 10 5 - 15 mMol/L 08/03/2024 5:56 AM [facility] Calcium 8.3(L) 8.5 - 10.5 mg/dL 08/03/2024 5:56 AM [facility] Est Glomerular Filtration Rate - Male 92 mL/min/1. 73 m?? 08/03/2024 5:56 AM [facility] Comment: This patient's estimated [...] AM EST Bridgette Stauffer MD CHEMISTRY ORDERABLES [facility] [place] [address] * POC, GLUCOSE (08/02/2024 7:47 AM EST) Glucometer, POC 89 65 - 199 mg/dL 08/02/2024 7:47 AM EST [facility] Comment:Supplemental ranges: <140 mg/dL before meals <180 mg/dL all other times of the day. Blood CAPILLARY BLOOD / Unknown 08/02/2024 7:47 AM EST 08/02/2024 7:47 AM EST Krystal Parker MD POINT OF CARE TEST O RDERABLES [facility] [place] [address] * (ABNORMAL) CBC (with Diff) (08/02/2024 4:20 AM EST) White Blood Cell 8.51 4.00 - 9.50 x10(3)/mc L 08/02/2024 4:50 AM [facility] Red Blood Cell 4.41(L) 4.58 - 5.54 x10(6)/mc L 08/02/2024 4:50 AM [facility] Hemoglobin 12.2(L) 13.7 - 16.5 g/dL 08/02/2024 4:50 AM [facility] Hematocrit 35.8(L) 40.5 - 48.5 % 08/02/2024 4:50 AM [facility] Mean Cell Volume 81.2(L) 82.9 - 93.1 fL 08/02/2024 4:50 AM [facility] Mean Cell Hemoglobin 27.7 27.5 - 32.1 pg 08/02/2024 4:50 AM [facility] Mean Cell Hemoglobin Concentration 34.1 32.0 - 35.7 g/dL 08/02/2024 4:50 AM [facility] Platelet 111(L) 145 - 357 x10(3)/mc L 08/02/2024 4:50 AM [facility] Mean Platelet Volume 11.1 7.6 - 12.9 fL 08/02/2024 4:50 AM [facility] RDW Standard Deviation 41.9 36.0 - 45.0 fL 08/02/2024 4:50 AM [facility] RDW coefficient of variation 14.1(H) 11.4 - 13.8 % 08/02/2024 4:50 AM [facility] NRBC% auto 0.0 % 08/02/2024 4:50 AM [facility] NRBC Absolute <0.01 <0.01 x10(3)/mc L 08/02/2024 4:50 AM [facility] Neutrophil % 77.7 % 08/02/2024 4:50 AM [facility] Neutrophil Absolute (ANC) - Automated 6.62(H) 1.70 - 6.10 x10(3)/mc L 08/02/2024 4:50 AM [facility] Lymph % 11.9 % 08/02/2024 4:50 AM [facility] Lymph Absolute 1.01 0.90 - 3.20 x10(3)/mc L 08/02/2024 4:50 AM [facility] Monocyte % 8.2 % 08/02/2024 4:50 AM [facility] Monocyte Absolute 0.70 0.30 - 0.90 x10(3)/mc L 08/02/2024 4:50 AM [facility] Eos % 1.4 % 08/02/2024 4:50 AM [facility] Eos Absolute 0.12 0.00 - 0.40 x10(3)/mc L 08/02/2024 4:50 AM [facility] Basophil % 0.4 % 08/02/2024 4:50 AM [facility] Baso Absolute <0.04 0.00 - 0.10 x10(3)/mc L 08/02/2024 4:50 AM [facility] Immature Gran % 0.4 % 4:50 AM [facility] Immature Gran Absolute <0.04 0.00 - 0.04 x10(3)/mc L 08/02/2024 4:50 AM [facility] Blood VENOUS BLOOD SPECIMEN / Unknown Venipuncture / Unknown 08/02/2024 4:20 AM EST 08/02/2024 4:37 AM EST Bridgette Stauffer MD HEMATOLOGY ORDERABLE S [facility] [place] [address] * Magnesium (08/02/2024 4:20 AM EST) Magnesium 0.79 0.69 - 1.07 mMol/L 08/02/2024 5:06 AM [facility] Blood VENOUS BLOOD SPECIMEN / Unknown Venipuncture / Unknown 08/02/2024 4:20 AM EST 08/02/2024 4:37 AM EST Bridgette Stauffer MD CHEMISTRY ORDERABLES Performing Organization Address City/[facility]/ZIP Co de Phone Number [facility] [place] [address] * (ABNORMAL) Basic Metabolic Panel (08/02/2024 4:20 AM EST) Glucose 110 65 - 199 mg/dL 08/02/2024 5:06 AM [facility] Comment:Glucose Concentratio n >=200 mg/dL plus symptoms is consistent with Diabetes Mellitus. Blood Urea Nitrogen 12 10 - 20 mg/dL 08/02/2024 5:06 AM [facility] Creatinine 0.90 0.80 - 1.50 mg/dL 08/02/2024 5:06 AM [facility] Sodium 139 135 - 145 mMol/L 08/02/2024 5:06 AM [facility] Potassium 4.0 3.5 - 5.0 mMol/L 08/02/2024 5:06 AM [facility] Chloride 108(H) 98 - 107 mMol/L 08/02/2024 5:06 AM [facility] Carbon Dioxide 23 22 - 31 mMol/L 08/02/2024 5:06 AM [facility] Anion Gap 8 5 - 15 mMol/L 08/02/2024 5:06 AM EST [facility] Calcium 8.1(L) 8.5 - 10.5 mg/dL 08/02/2024 5:06 AM EST [facility] Est Glomerular Filtration Rate - Male 91 mL/min/1. 73 m?? 08/02/2024 5:06 AM EST [facility] Comment: This patient's estimated GFR [...] Stauffer MD CHEMISTRY ORDERABLES Performing Organization Address City/[facility]/ZIP Co de Phone Number [facility] [place] [address] * Potassium (08/01/2024 8:39 PM EST) Potassium 4.0 3.5 - 5.0 mMol/L 08/01/2024 9:21 PM EST [facility] Blood VENOUS BLOOD SPECIMEN / Unknown Venipuncture / Unknown 08/01/2024 8:39 PM EST 08/01/2024 8:51 PM EST Aubree Silverio MD CHEMISTRY ORDERABL ES [facility] [place] [address] * POC, GLUCOSE (08/01/2024 8:35 PM EST) Glucometer, POC 112 65 - 199 mg/dL 08/01/2024 8:36 PM EST [facility] Comment:Supplemental ranges: <140 mg/dL before meals <180 mg/dL all other times of the day. Blood CAPILLARY BLOOD / Unknown 08/01/2024 8:35 PM EST 08/01/2024 8:36 PM EST Krystal Parker MD POINT OF CARE TEST O RDERASHAY [facility] [place] [address] * POC, GLUCOSE (08/01/2024 4:55 PM EST) Glucometer, POC 99 65 - 199 mg/dL 08/01/2024 4:56 PM EST [facility] Comment:Supplemental ranges: <140 mg/dL before meals <180 mg/dL all other times of the day. Blood CAPILLARY BLOOD / Unknown 08/01/2024 4:55 PM EST 08/01/2024 4:56 PM EST Krystal Parker MD POINT OF CARE TEST O JOSH Performing Organization Address [facility]/ZIP Co de Phone Number [facility] [place] [address] * POC, GLUCOSE (08/01/2024 12:42 PM EST) Glucometer, POC 130 65 - 199 mg/dL 08/01/2024 12:43 PM EST [facility] Comment:Supplemental ranges: <140 mg/dL before meals <180 mg/dL all other times of the day. Blood CAPILLARY BLOOD / Unknown 08/01/2024 12:42 PM EST 08/01/2024 12:43 PM EST Krystal Parker MD POINT OF CARE TEST O JOSH Performing Organization Address City/[facility]/ZIP Co de Phone Number [facility] [place] [address] * (ABNORMAL) Cooximetry, POC (08/01/2024 10:45 AM EST) pO2, Coox 32 mmHg 08/01/2024 10:48 AM [facility] Hemoglobin, Coox 12.9(L) 13.7 - 16.5 g/dL 08/01/2024 10:48 AM [facility] Oxyhemoglobin, Coox 66.7 % 08/01/2024 10:48 AM [facility] Carboxyhemoglo bin, Coox 1.1 % 08/01/2024 10:48 AM [facility] Comment: Nonsmokers: 0.5-1.5% COHB ?? Smokers: Variable ??but usually less than 10% ?? Toxic: 20-30% COHB ?? Lethal: Greater than 60% COHB Methemoglobin, Coox 0.3 <=1.5 % 08/01/2024 10:48 AM [facility] Blood (Mixed Venous) 08/01/2024 10:45 AM EST 08/01/2024 10:48 AM EST Krystal Parker MD POINT OF CARE TEST O RDERABLES [facility] [place] [address] * Potassium (08/01/2024 8:20 AM EST) Potassium 4.0 3.5 - 5.0 mMol/L 08/01/2024 10:17 AM EST [facility] Blood ARTERIAL BLOOD / Unknown Venipuncture / Unknown 08/01/2024 8:20 AM EST 08/01/2024 8:30 AM EST Aubree Silverio MD CHEMISTRY ORDERABL ES [facility] [place] [address] * POC, GLUCOSE (08/01/2024 7:44 AM EST) Pathologist [facility] Glucometer, POC 86 65 - 199 mg/dL 08/01/2024 7:44 AM EST [facility] Comment:Supplemental ranges: <140 mg/dL before meals <180 mg/dL all other times of the day. Blood CAPILLARY BLOOD / Unknown 08/01/2024 7:44 AM EST 08/01/2024 7:44 AM EST Krystal Parker MD POINT OF CARE TEST O RDERABLES [facility] [place] [address] * (ABNORMAL) CBC (with Diff) (08/01/2024 4:18 AM EST) [facility] White Blood Cell 8.51 4.00 - 9.50 x10(3)/mc L 08/01/2024 4:53 AM [facility] Red Blood Cell 4.12(L) 4.58 - 5.54 x10(6)/mc L 08/01/2024 4:53 AM [facility] Hemoglobin 11.2(L) 13.7 - 16.5 g/dL 08/01/2024 4:53 AM [facility] Hematocrit 33.8(L) 40.5 - 48.5 % 08/01/2024 4:53 AM [facility] Mean Cell Volume 82.0(L) 82.9 - 93.1 fL 08/01/2024 4:53 AM [facility] Mean Cell Hemoglobin 27.2(L) 27.5 - 32.1 pg 08/01/2024 4:53 AM [facility] Mean Cell Hemoglobin Concentration 33.1 32.0 - 35.7 g/dL 08/01/2024 4:53 AM [facility] Platelet 94(L) 145 - 357 x10(3)/mc L 08/01/2024 4:53 AM [facility] Mean Platelet Volume 10.9 7.6 - 12.9 fL 08/01/2024 4:53 AM [facility] RDW Standard Deviation 44.2 36.0 - 45.0 fL 08/01/2024 4:53 AM [facility] RDW coefficient of variation 14.7(H) 11.4 - 13.8 % 08/01/2024 4:53 AM [facility] NRBC% auto 0.0 % 08/01/2024 4:53 AM [facility] NRBC Absolute <0.01 <0.01 x10(3)/mc L 08/01/2024 4:53 AM [facility] Neutrophil % 82.7 % 08/01/2024 4:53 AM [facility] Neutrophil Absolute (ANC) - Automated 7.04(H) 1.70 - 6.10 x10(3)/mc L 08/01/2024 4:53 AM [facility] Lymph % 8.6 % 08/01/2024 4:53 AM [facility] Lymph Absolute 0.73(L) 0.90 - 3.20 x10(3)/mc L 08/01/2024 4:53 AM [facility] Monocyte % 7.6 % 08/01/2024 4:53 AM [facility] Monocyte Absolute 0.65 0.30 - 0.90 x10(3)/mc L 08/01/2024 4:53 AM [facility] Eos % 0.5 % 08/01/2024 4:53 AM [facility] Eos Absolute 0.04 0.00 - 0.40 x10(3)/mc L 08/01/2024 4:53 AM [facility] Basophil % 0.2 % 08/01/2024 4:53 AM [facility] Baso Absolute <0.04 0.00 - 0.10 x10(3)/mc L 08/01/2024 4:53 AM [facility] Immature Gran % 0.4 % 4:53 AM [facility] Immature Gran Absolute <0.04 0.00 - 0.04 x10(3)/mc L 08/01/2024 4:53 AM [facility] Blood VENOUS BLOOD SPECIMEN / Unknown Venipuncture / Unknown 08/01/2024 4:18 AM EST 08/01/2024 4:29 AM EST Bridgette Stauffer MD HEMATOLOGY ORDERABLE S Performing Organization Address [facility] Co de Phone Number [facility] [place] [address] * Magnesium (08/01/2024 4:18 AM EST) Pathologist [facility] Magnesium 0.74 0.69 - 1.07 mMol/L 08/01/2024 5:00 AM [facility] Blood VENOUS BLOOD SPECIMEN / Unknown Venipuncture / Unknown 08/01/2024 4:18 AM EST 08/01/2024 4:29 AM EST Bridgette Stauffer MD CHEMISTRY ORDERABLES Performing Organization Address [facility] Co de Phone Number [facility] [place] [address] * (ABNORMAL) Basic Metabolic Panel (08/01/2024 4:18 AM EST) Pathologist [facility] Glucose 107 65 - 199 mg/dL 08/01/2024 5:00 AM [facility] Comment:Glucose Concentratio n >=200 mg/dL plus symptoms is consistent with Diabetes Mellitus. Blood Urea Nitrogen 8(L) 10 - 20 mg/dL 08/01/2024 5:00 AM [facility] Creatinine 0.82 0.80 - 1.50 mg/dL 08/01/2024 5:00 AM [facility] Sodium 137 135 - 145 mMol/L 08/01/2024 5:00 AM [facility] Potassium 3.9 3.5 - 5.0 mMol/L 08/01/2024 5:00 AM [facility] Chloride 108(H) 98 - 107 mMol/L 08/01/2024 5:00 AM [facility] Carbon Dioxide 21(L) 22 - 31 mMol/L 08/01/2024 5:00 AM [facility] Anion Gap 8 5 - 15 mMol/L 08/01/2024 5:00 AM [facility] Calcium 7.7(L) 8.5 - 10.5 mg/dL 08/01/2024 5:00 AM [facility] Est Glomerular Filtration Rate - Male 93 mL/min/1. 73 m?? 08/01/2024 5:00 AM [facility] Comment: This patient's estimated [...] AM EST Bridgette Stauffer MD CHEMISTRY ORDERABLES [facility] [place] [address] * POC, GLUCOSE (07/31/2024 8:41 PM EST) Glucometer, POC 73 65 - 199 mg/dL 07/31/2024 8:41 PM EST [facility] Comment:Supplemental ranges: <140 mg/dL before meals <180 mg/dL all other times of the day. Blood CAPILLARY BLOOD / Unknown 07/31/2024 8:41 PM EST 07/31/2024 8:41 PM EST Krystal Parker MD POINT OF CARE TEST O RDERABLES Performing Organization Address [facility]/State/ZIP Co de Phone Number [facility] [place] [address] * CARDIAC CATHETERIZATION (07/31/2024 5:53 PM EST) Anatomical Region Laterality Modality Other Narrative 08/01/2024 12:37 PM EST ?[facility] ? Cardiac Catheterization/Intervention Report ? Patient Name: Korey Montoya Kyrie. ? Procedure Date: 07/31/2024 ? A #: [id number] ? Primary Physician: Janelle, Maldonado T ? Case #: [id number] ? File Name: [id number] ? Catheterization Order Number: [id number] ? [facility] ? Final Report [place], [place] ? Patient Name: ? Korey Montoya ?ID#: ?[id number] ? : ?1950 ? Procedure Date: ? July 31, 2024 ?Case #: ? [id number] ? Room: ? 1 ? Case [...] ? Comments: ?Impella removed from the right [employer]GER with deployment of Perclose and ?Angioseal. ??Good [...] Maldonado Luis MD - 08/01/2024 [facility] Cardiac Catheterization/Intervention Report Patient Name: Korey Montoya Procedure Date: 07/31/2024 A #: [id number] Primary Physician: Maldonado Luis Case #: [id number] File Name: [id number] Catheterization Order Number: [id number] [facility] FinalReport [place], [place] Patient Name: Korey Montoya ID#:[id number] :1950 Procedure Date: July 31, 2024 Case [...] was designated as ASA Class IV. The [facility] clinical frailtyscale is 4: Vulnerable. Diagnostic Tests: [...] procedures. Comments: Impella removed from the right [employer] MANAGER with deployment of Perclose and Angioseal. Good [...] * POC, GLUCOSE (07/31/2024 11:04 AM EST) [facility] Glucometer, POC 82 65 - 199 mg/dL 07/31/2024 11:04 AM EST [facility] Comment:Supplemental ranges: <140 mg/dL before meals <180 mg/dL all other times of the day. Blood CAPILLARY BLOOD / Unknown 07/31/2024 11:04 AM EST 07/31/2024 11:04 AM EST Krystal Parker MD POINT OF CARE TEST O RDERABLES [facility] [place] [address] * (ABNORMAL) Blood Gas, Arterial POC (07/31/2024 8:29 AM EST) pH, Arterial 7.48(H) 7.35 - 7.45 07/31/2024 8:30 AM [facility] PCO2, Arterial 29(L) 35 - 45 mmHg 07/31/2024 8:30 AM [facility] PO2, Arterial 71(L) 85 - 104 mmHg 07/31/2024 8:30 AM [facility] Bicarbonate, Arterial 20.6 20.0 - 26.0 mmol/L 07/31/2024 8:30 AM [facility] Base Excess, Arterial -3.0 -3.0 - 3.0 mmol/L 07/31/2024 8:30 AM [facility] Hemoglobin, Arterial 12.3(L) 13.7 - 16.5 g/dL 07/31/2024 8:30 AM [facility] Oxyhemoglobin, Arterial 94.4 94.0 - 97.0 % 07/31/2024 8:30 AM [facility] Carboxyhemoglobin , Arterial 0.7 % 07/31/2024 8:30 AM [facility] Comment: Nonsmokers: 0.5-1.5% COHB ?? Smokers: Variable ??but usually less than 10% ?? Toxic: 20-30% COHB ?? Lethal: Greater than 60% COHB Methemoglobin, Arterial 0.3 <=1.5 % 07/31/2024 8:30 AM [facility] Sodium, Arterial 138 135 - 145 mmol/L 07/31/2024 8:30 AM [facility] Potassium, Arterial 3.5 3.5 - 5.0 mmol/L 07/31/2024 8:30 AM [facility] Chloride, Arterial 109(H) 98 - 107 mmol/L 07/31/2024 8:30 AM [facility] Lactate, Arterial 0.8 0.5 - 2.2 mmol/L 07/31/2024 8:30 AM [facility] Fraction of Inspired Oxygen 21 % 07/31/2024 8:30 AM [facility] PF Ratio 338 Ratio 07/31/2024 8:30 AM [facility] Comment:PF ratio calculated using the non-temperature corrected pO2 result. IONIZED CALCIUM, ARTERIAL 1.08(L) 1.15 - 1.33 mmol/L 07/31/2024 8:30 AM [facility] Glucose, Arterial 86 65 - 199 mg/dL 07/31/2024 8:30 AM [facility] Comment:Glucose Concentratio n >=200 mg/dL plus symptoms is consistent with Diabetes Mellitus. Blood ARTERIAL BLOOD / Unknown 07/31/2024 8:29 AM EST 07/31/2024 8:30 AM EST Krystal Parker MD POINT OF CARE TEST O JOSH [facility] [place] [address] * POC, GLUCOSE (07/31/2024 7:47 AM EST) Glucometer, POC 82 65 - 199 mg/dL 07/31/2024 7:53 AM [facility] Comment:Supplemental ranges: <140 mg/dL before meals <180 mg/dL all other times of the day. Blood CAPILLARY BLOOD / Unknown 07/31/2024 7:47 AM EST 07/31/2024 7:53 AM EST Krystal Parker MD POINT OF CARE TEST O RDERASHAY [facility] [place] [address] * (ABNORMAL) CBC (with Diff) (07/31/2024 1:08 AM EST) White Blood Cell 10.25(H) 4.00 - 9.50 x10(3)/mc L 07/31/2024 1:28 AM [facility] Red Blood Cell 4.13(L) 4.58 - 5.54 x10(6)/mc L 07/31/2024 1:28 AM [facility] Hemoglobin 11.2(L) 13.7 - 16.5 g/dL 07/31/2024 1:28 AM [facility] Hematocrit 33.9(L) 40.5 - 48.5 % 07/31/2024 1:28 AM [facility] Mean Cell Volume 82.1(L) 82.9 - 93.1 fL 07/31/2024 1:28 AM [facility] Mean Cell Hemoglobin 27.1(L) 27.5 - 32.1 pg 07/31/2024 1:28 AM [facility] Mean Cell Hemoglobin Concentration 33.0 32.0 - 35.7 g/dL 07/31/2024 1:28 AM [facility] Platelet 109(L) 145 - 357 x10(3)/mc L 07/31/2024 1:28 AM [facility] Mean Platelet Volume 10.4 7.6 - 12.9 fL 07/31/2024 1:28 AM [facility] RDW Standard Deviation 45.1(H) 36.0 - 45.0 fL 07/31/2024 1:28 AM [facility] RDW coefficient of variation 15.1(H) 11.4 - 13.8 % 07/31/2024 1:28 AM [facility] NRBC% auto 0.0 % 07/31/2024 1:28 AM [facility] NRBC Absolute <0.01 <0.01 x10(3)/mc L 07/31/2024 1:28 AM [facility] Neutrophil % 79.7 % 07/31/2024 1:28 AM [facility] Neutrophil Absolute (ANC) - Automated 8.17(H) 1.70 - 6.10 x10(3)/mc L 07/31/2024 1:28 AM [facility] Lymph % 12.8 % 07/31/2024 1:28 AM [facility] Lymph Absolute 1.31 0.90 - 3.20 x10(3)/mc L 07/31/2024 1:28 AM [facility] Monocyte % 6.9 % 07/31/2024 1:28 AM [facility] Monocyte Absolute 0.71 0.30 - 0.90 x10(3)/mc L 07/31/2024 1:28 AM [facility] Eos % 0.1 % 07/31/2024 1:28 AM [facility] Eos Absolute <0.04 0.00 - 0.40 x10(3)/mc L 07/31/2024 1:28 AM [facility] Basophil % 0.3 % 07/31/2024 1:28 AM [facility] Baso Absolute <0.04 0.00 - 0.10 x10(3)/mc L 07/31/2024 1:28 AM [facility] Immature Gran % 0.2 % 1:28 AM [facility] Immature Gran Absolute <0.04 0.00 - 0.04 x10(3)/mc L 07/31/2024 1:28 AM [facility] Blood VENOUS BLOOD SPECIMEN / Unknown Venipuncture / Unknown 07/31/2024 1:08 AM EST 07/31/2024 1:18 AM EST Bridgette Stauffer MD HEMATOLOGY ORDERABLE S [facility] [place] [address] * Magnesium (07/31/2024 1:08 AM EST) Pathologist [facility] Magnesium 0.89 0.69 - 1.07 mMol/L 07/31/2024 1:46 AM [facility] Blood VENOUS BLOOD SPECIMEN / Unknown Venipuncture / Unknown 07/31/2024 1:08 AM EST 07/31/2024 1:18 AM EST Bridgette Stauffer MD CHEMISTRY ORDERABLES [facility] [address] [place] [address] * (ABNORMAL) Basic Metabolic Panel (07/31/2024 1:08 AM EST) Pathologist [facility] Glucose 97 65 - 199 mg/dL 07/31/2024 1:46 AM [facility] Comment:Glucose Concentratio n >=200 mg/dL plus symptoms is consistent with Diabetes Mellitus. Blood Urea Nitrogen 11 10 - 20 mg/dL 07/31/2024 1:46 AM [facility] Creatinine 0.96 0.80 - 1.50 mg/dL 07/31/2024 1:46 AM EST [facility] Sodium 140 135 - 145 mMol/L 07/31/2024 1:46 AM EST [facility] Potassium 4.1 3.5 - 5.0 mMol/L 07/31/2024 1:46 AM [facility] Chloride 110(H) 98 - 107 mMol/L 07/31/2024 1:46 AM [facility] Carbon Dioxide 24 22 - 31 mMol/L 07/31/2024 1:46 AM [facility] Anion Gap 6 5 - 15 mMol/L 07/31/2024 1:46 AM EST [facility] Calcium 7.7(L) 8.5 - 10.5 mg/dL 07/31/2024 1:46 AM [facility] Est Glomerular Filtration Rate - Male 84 mL/min/1. 73 m?? 07/31/2024 1:46 AM [facility] Comment: This patient's estimated [...] AM EST Bridgette Stauffer MD CHEMISTRY ORDERABLES [facility] [place] [address] * (ABNORMAL) Hepatic Function Panel (07/31/2024 1:08 AM EST) Albumin 3.1(L) 3.2 - 5.2 g/dL 07/31/2024 1:46 AM EST [facility] Aspartate Aminotransferase 192(H) <=39 unit/L 07/31/2024 1:46 AM [facility] Alanine Aminotransferase 59(H) 0 - 55 unit/L 07/31/2024 1:46 AM [facility] Alkaline Phosphatase 46 40 - 130 unit/L 07/31/2024 1:46 AM [facility] Bilirubin, Total 0.4 <=1.3 mg/dL 07/31/2024 1:46 AM [facility] Bilirubin, Direct <0.2 0.0 - 0.3 mg/dL 07/31/2024 1:46 AM [facility] Protein, Total 5.0(L) 6.1 - 8.0 g/dL 07/31/2024 1:46 AM [facility] Blood VENOUS BLOOD SPECIMEN / Unknown Venipuncture / Unknown 07/31/2024 1:08 AM EST 07/31/2024 1:18 AM EST Krystal Parker MD CHEMISTRY ORDERABLES Performing Organization Address [facility]/ZIP Co de Phone Number [facility] [place] [address] * POC, GLUCOSE (07/30/2024 8:03 PM EST) Glucometer, POC 86 65 - 199 mg/dL 07/30/2024 8:03 PM EST [facility] Comment:Supplemental ranges: <140 mg/dL before meals <180 mg/dL all other times of the day. Blood CAPILLARY BLOOD / Unknown 07/30/2024 8:03 PM EST 07/30/2024 8:03 PM EST Krystal Parker MD POINT OF CARE TEST O RDERABLES Performing Organization Address City/[facility]/ZIP Co de Phone Number [facility] [place] [address] * Potassium (07/30/2024 8:03 PM EST) [facility] Potassium 3.8 3.5 - 5.0 mMol/L 07/30/2024 9:13 PM EST [facility] Blood VENOUS BLOOD SPECIMEN / Unknown Venipuncture / Unknown 07/30/2024 8:03 PM EST 07/30/2024 8:22 PM EST Aubree Silverio MD CHEMISTRY ORDERABL ES Performing Organization Address City/[facility]/ZIP Co de Phone Number [facility] [place] [address] * POC, GLUCOSE (07/30/2024 6:23 PM EST) Glucometer, POC 93 65 - 199 mg/dL 07/30/2024 6:24 PM EST [facility] Comment:Supplemental ranges: <140 mg/dL before meals <180 mg/dL all other times of the day. Blood CAPILLARY BLOOD / Unknown 07/30/2024 6:23 PM EST 07/30/2024 6:24 PM EST Krystal Parker MD POINT OF CARE TEST O RDKAY Performing Organization Address [facility] Co de Phone Number [facility] [place] [address] * POC, GLUCOSE (07/30/2024 5:08 PM EST) Glucometer, POC 78 65 - 199 mg/dL 07/30/2024 5:08 PM EST [facility] Comment:Supplemental ranges: <140 mg/dL before meals <180 mg/dL all other times of the day. Blood CAPILLARY BLOOD / Unknown 07/30/2024 5:08 PM EST 07/30/2024 5:08 PM EST Krystal Parker MD POINT OF CARE TEST O JOSH Performing Organization Address [facility] Co de Phone Number [facility] [place] [address] * (ABNORMAL) Phosphorus (07/30/2024 3:08 PM EST) Phosphorus 2.1(L) 2.5 - 4.5 mg/dL 07/30/2024 3:58 PM EST [facility] Blood VENOUS BLOOD SPECIMEN / Unknown Venipuncture / Unknown 07/30/2024 3:08 PM EST 07/30/2024 3:12 PM EST Aubree Silverio MD CHEMISTRY ORDERABL ES Performing Organization Address [facility] Co de Phone Number [facility] [place] [address] * Magnesium (07/30/2024 3:08 PM EST) Magnesium 0.90 0.69 - 1.07 mMol/L 07/30/2024 3:58 PM EST [facility] Blood VENOUS BLOOD SPECIMEN / Unknown Venipuncture / Unknown 07/30/2024 3:08 PM EST 07/30/2024 3:12 PM EST Aubree Silverio MD CHEMISTRY ORDERABL ES [facility] [place] [address] * (ABNORMAL) Basic Metabolic Panel (07/30/2024 3:08 PM EST) Glucose 105 65 - 199 mg/dL 07/30/2024 4:17 PM [facility] Comment:Glucose Concentratio n >=200 mg/dL plus symptoms is consistent with Diabetes Mellitus. Blood Urea Nitrogen 13 10 - 20 mg/dL 07/30/2024 4:17 PM [facility] Creatinine 1.01 0.80 - 1.50 mg/dL 07/30/2024 4:17 PM [facility] Sodium 141 135 - 145 mMol/L 07/30/2024 4:17 PM [facility] Potassium 3.4(L) 3.5 - 5.0 mMol/L 07/30/2024 4:17 PM [facility] Chloride 109(H) 98 - 107 mMol/L 07/30/2024 4:17 PM [facility] Carbon Dioxide 21(L) 22 - 31 mMol/L 07/30/2024 4:17 PM [facility] Anion Gap 11 5 - 15 mMol/L 07/30/2024 4:17 PM [facility] Calcium 7.9(L) 8.5 - 10.5 mg/dL 07/30/2024 4:17 PM [facility] Est Glomerular Filtration Rate - Male 79 mL/min/1. 73 m?? 07/30/2024 4:17 PM [facility] Comment: This patient's estimated [...] EST Aubree Silverio MD CHEMISTRY ORDERABL ES [facility] [place] [address] * ECHO LMTD W CONTRAST W LMTD SPEC DOPP COLOR DOPP (07/30/2024 11:42 AM EST) Anatomical Region Laterality Modality Cardiac Other 07/30/2024 10:2 2 AM EST Narrative 07/30/2024 12:34 PM EST [address] [place] [address] ? Echocardiogram Report Name: MONTOYA KOREY Kyrie ? Study Date: 07/30/2024 10:22 AMBP: 124/66 mmHg : 1950 ? Height: 168 cm ? Account: [id number] Age: 74 yrs ? Weight: 65 kg Gender: Male ?BSA: 1.7 m2 Ordering Physician: Aubree Silverio MD Referring Physician: CHAPARRO FERRERA Performed By: OEMRO Millan Reason For Study: ST elevation myocardial infarction involving left anterior descending (LAD) coronary artery Interpreting Fellow: Ivan Hernandez. Exam Location: [facility]. Interpretation Summary Left ventricle is severely dilated. [...] Compared to the overnight study by the strike on machine operator fellow the impella position is stable. 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 Procedure Limited - 36532. Image enhancement Definity was used for both [...] Note Kathleen Banda MD - 07/30/2024 1 [place] [address] Echocardiogram Report Name: KOREY MONTOYA Study Date: 0:22 AMBP: 124/66 mmHg : 1950 Height: 168 cm Account: [id number] Age: 74 yrs Weight: 65 kg Gender: Male BSA: 1.7 m2 Ordering Physician: Aubree Silverio MD Referring Physician: CHAPARRO FERRERA Performed By: OMERO Millan Reason For Study: ST elevation myocardial infarction involving leftanterior descending (LAD) coronary artery Interpreting Fellow: Ivan Hernandez. Exam Location: [facility]. Interpretation Summary Left ventricle is severely dilated. [...] Compared to the overnight study by the strike on machine operator fellow the impella positionis stable. The global left ventricular systolic function has improvedpredominantly via recruitment outside the LAD territory which remains akinetic. Procedure Limited - 75012. Image enhancement Definity was used for both [...] - 199 mg/dL 07/30/2024 11:17 AM EST [facility] Comment:Supplemental ranges: <140 mg/dL before meals <180 mg/dL all other times of the day. Blood CAPILLARY BLOOD / Unknown 07/30/2024 11:17 AM EST 07/30/2024 11:17 AM EST Aubree Silverio MD POINT OF CARE TEST ORDERABLES [facility] [place] [address] * (ABNORMAL) Blood Gas, Arterial POC (07/30/2024 8:16 AM EST) pH, Arterial 7.44 7.35 - 7.45 07/30/2024 8:17 AM [facility] PCO2, Arterial 29(L) 35 - 45 mmHg 07/30/2024 8:17 AM [facility] PO2, Arterial 109(H) 85 - 104 mmHg 07/30/2024 8:17 AM [facility] Bicarbonate, Arterial 19.4(L) 20.0 - 26.0 mmol/L 07/30/2024 8:17 AM [facility] Base Excess, Arterial -4.7(L) -3.0 - 3.0 mmol/L 07/30/2024 8:17 AM [facility] Hemoglobin, Arterial 12.2(L) 13.7 - 16.5 g/dL 07/30/2024 8:17 AM [facility] Oxyhemoglobin, Arterial 97.1(H) 94.0 - 97.0 % 07/30/2024 8:17 AM [facility] Carboxyhemoglob in, Arterial 1.0 % 07/30/2024 8:17 AM [facility] Comment: Nonsmokers: 0.5-1.5% COHB ?? Smokers: Variable ??but usually less than 10% ?? Toxic: 20-30% COHB ?? Lethal: Greater than 60% COHB Methemoglobin, Arterial 0.1 <=1.5 % 07/30/2024 8:17 AM [facility] Sodium, Arterial 132(L) 135 - 145 mmol/L 07/30/2024 8:17 AM EST [facility] Potassium, Arterial 3.9 3.5 - 5.0 mmol/L 07/30/2024 8:17 AM [facility] Chloride, Arterial 105 98 - 107 mmol/L 07/30/2024 8:17 AM [facility] Lactate, Arterial 1.2 0.5 - 2.2 mmol/L 07/30/2024 8:17 AM [facility] Fraction of Inspired Oxygen 21 % 07/30/2024 8:17 AM [facility] PF Ratio 519 Ratio 07/30/2024 8:17 AM [facility] Comment:PF ratio calculated using the non-temperature corrected pO2 result. IONIZED CALCIUM, ARTERIAL 1.15 1.15 - 1.33 mmol/L 07/30/2024 8:17 AM [facility] Blood ARTERIAL BLOOD / Unknown 07/30/2024 8:16 AM EST 07/30/2024 8:17 AM EST Aubree Silverio MD POINT OF CARE TEST ORDERABLES [facility] [place] [address] * (ABNORMAL) Troponin - Single (07/30/2024 8:09 AM EST) Troponin-T, High Sensitivity 8,651(H) <=22 ng/L 07/30/2024 9:06 AM EST [facility] Comment: This patient's troponin T [...] can be found in the [facility] Test Catalog Troponin - https://one-.testcatalog.org/catalogs/565/files/41776 Reference: Fourth [place] Definition of Myocardial Infarction. Journal of the [place] [employer] 2018;72:9510-2171 Blood VENOUS BLOOD SPECIMEN / Unknown Venipuncture / Unknown 07/30/2024 8:09 AM EST 07/30/2024 8:26 AM EST Aubree Silverio MD CHEMISTRY ORDERABL ES Performing Organization Address [facility] Co de Phone Number [facility] [place] [address] * POC, GLUCOSE (07/30/2024 7:40 AM EST) Glucometer, POC 111 65 - 199 mg/dL 07/30/2024 7:40 AM EST [facility] Comment:Supplemental ranges: <140 mg/dL before meals <180 mg/dL all other times of the day. Blood CAPILLARY BLOOD / Unknown 07/30/2024 7:40 AM EST 07/30/2024 7:40 AM EST Aubree Silverio MD POINT OF CARE TEST ORDERABLES Performing Organization Address [facility] Co de Phone Number [facility] [place] [address] * (ABNORMAL) CBC (with Diff) (07/30/2024 2:11 AM EST) White Blood Cell 11.25(H) 4.00 - 9.50 x10(3)/mc L 07/30/2024 2:33 AM EST [facility] Red Blood Cell 4.50(L) 4.58 - 5.54 x10(6)/mc L 07/30/2024 2:33 AM [facility] Hemoglobin 12.2(L) 13.7 - 16.5 g/dL 07/30/2024 2:33 AM [facility] Hematocrit 37.1(L) 40.5 - 48.5 % 07/30/2024 2:33 AM [facility] Mean Cell Volume 82.4(L) 82.9 - 93.1 fL 07/30/2024 2:33 AM [facility] Mean Cell Hemoglobin 27.1(L) 27.5 - 32.1 pg 07/30/2024 2:33 AM [facility] Mean Cell Hemoglobin Concentration 32.9 32.0 - 35.7 g/dL 07/30/2024 2:33 AM [facility] Platelet 166 145 - 357 x10(3)/mc L 07/30/2024 2:33 AM [facility] Mean Platelet Volume 10.6 7.6 - 12.9 fL 07/30/2024 2:33 AM [facility] RDW Standard Deviation 44.6 36.0 - 45.0 fL 07/30/2024 2:33 AM [facility] RDW coefficient of variation 14.6(H) 11.4 - 13.8 % 07/30/2024 2:33 AM [facility] NRBC% auto 0.0 % 07/30/2024 2:33 AM [facility] NRBC Absolute <0.01 <0.01 x10(3)/mc L 07/30/2024 2:33 AM [facility] Neutrophil % 88.9 % 07/30/2024 2:33 AM [facility] Neutrophil Absolute (ANC) - Automated 10.00(H) 1.70 - 6.10 x10(3)/mc L 07/30/2024 2:33 AM [facility] Lymph % 5.1 % 07/30/2024 2:33 AM [facility] Lymph Absolute 0.57(L) 0.90 - 3.20 x10(3)/mc L 07/30/2024 2:33 AM EST [facility] Monocyte % 5.4 % 07/30/2024 2:33 AM [facility] Monocyte Absolute 0.61 0.30 - 0.90 x10(3)/mc L 07/30/2024 2:33 AM [facility] Eos % 0.0 % 07/30/2024 2:33 AM [facility] Eos Absolute <0.04 0.00 - 0.40 x10(3)/mc L 07/30/2024 2:33 AM [facility] Basophil % 0.2 % 07/30/2024 2:33 AM [facility] Baso Absolute <0.04 0.00 - 0.10 x10(3)/mc L 07/30/2024 2:33 AM [facility] Immature Gran % 0.4 % 2:33 AM [facility] Immature Gran Absolute 0.05(H) 0.00 - 0.04 x10(3)/mc L 07/30/2024 2:33 AM [facility] Blood VENOUS BLOOD SPECIMEN / Unknown Venipuncture / Unknown 07/30/2024 2:11 AM EST 07/30/2024 2:22 AM EST Bridgette Stauffer MD HEMATOLOGY ORDERABLE S [facility] [place] [address] * Magnesium (07/30/2024 2:11 AM EST) Magnesium 1.01 0.69 - 1.07 mMol/L 07/30/2024 2:51 AM [facility] Blood VENOUS BLOOD SPECIMEN / Unknown Venipuncture / Unknown 07/30/2024 2:11 AM EST 07/30/2024 2:22 AM EST Bridgette Stauffer MD CHEMISTRY ORDERABLES [facility] [place] [address] * (ABNORMAL) Basic Metabolic Panel (07/30/2024 2:11 AM EST) Glucose 190 65 - 199 mg/dL 07/30/2024 2:51 AM [facility] Comment:Glucose Concentratio n >=200 mg/dL plus symptoms is consistent with Diabetes Mellitus. Blood Urea Nitrogen 15 10 - 20 mg/dL 07/30/2024 2:51 AM [facility] Creatinine 0.88 0.80 - 1.50 mg/dL 07/30/2024 2:51 AM [facility] Sodium 135 135 - 145 mMol/L 07/30/2024 2:51 AM [facility] Potassium 4.9 3.5 - 5.0 mMol/L 07/30/2024 2:51 AM [facility] Chloride 105 98 - 107 mMol/L 07/30/2024 2:51 AM [facility] Carbon Dioxide 19(L) 22 - 31 mMol/L 07/30/2024 2:51 AM [facility] Anion Gap 11 5 - 15 mMol/L 07/30/2024 2:51 AM [facility] Calcium 7.7(L) 8.5 - 10.5 mg/dL 07/30/2024 2:51 AM [facility] Est Glomerular Filtration Rate - Male 91 mL/min/1. 73 m?? 07/30/2024 2:51 AM [facility] Comment: This patient's estimated [...] Stauffer MD CHEMISTRY ORDERABLES Performing Organization Address City/[facility]/ZIP Co de Phone Number [facility] [place] [address] * (ABNORMAL) Cooximetry, POC (07/30/2024 1:00 AM EST) pO2, Coox 28 mmHg 07/30/2024 1:03 AM [facility] Hemoglobin, Coox 12.7(L) 13.7 - 16.5 g/dL 07/30/2024 1:03 AM EST [facility] Oxyhemoglobin, Coox 54.9 % 07/30/2024 1:03 AM [facility] Carboxyhemoglo bin, Coox 1.0 % 07/30/2024 1:03 AM EST [facility] Comment: Nonsmokers: 0.5-1.5% COHB ?? Smokers: Variable ??but usually less than 10% ?? Toxic: 20-30% COHB ?? Lethal: Greater than 60% COHB Methemoglobin, Coox 0.0 <=1.5 % 07/30/2024 1:03 AM EST [facility] Blood (Mixed Venous) 07/30/2024 1:00 AM EST 07/30/2024 1:03 AM EST Aubree Silverio MD POINT OF CARE TEST ORDERABLES Performing Organization Address [facility] Co de Phone Number [facility] [place] [address] * (ABNORMAL) Blood Gas, Arterial POC (07/30/2024 12:57 AM EST) pH, Arterial 7.38 7.35 - 7.45 07/30/2024 12:58 AM [facility] PCO2, Arterial 34(L) 35 - 45 mmHg 07/30/2024 12:58 AM [facility] PO2, Arterial 141(H) 85 - 104 mmHg 07/30/2024 12:58 AM [facility] Bicarbonate, Arterial 19.5(L) 20.0 - 26.0 mmol/L 07/30/2024 12:58 AM [facility] Base Excess, Arterial -5.6(L) -3.0 - 3.0 mmol/L 07/30/2024 12:58 AM [facility] Hemoglobin, Arterial 13.0(L) 13.7 - 16.5 g/dL 07/30/2024 12:58 AM [facility] Oxyhemoglobin, Arterial 98.4(H) 94.0 - 97.0 % 07/30/2024 12:58 AM [facility] Carboxyhemoglobin , Arterial 0.4 % 07/30/2024 12:58 AM [facility] Comment: Nonsmokers: 0.5-1.5% COHB ?? Smokers: Variable ??but usually less than 10% ?? Toxic: 20-30% COHB ?? Lethal: Greater than 60% COHB Methemoglobin, Arterial 0.1 <=1.5 % 07/30/2024 12:58 AM [facility] Sodium, Arterial 130(L) 135 - 145 mmol/L 07/30/2024 12:58 AM [facility] Potassium, Arterial 4.5 3.5 - 5.0 mmol/L 07/30/2024 12:58 AM [facility] Chloride, Arterial 104 98 - 107 mmol/L 07/30/2024 12:58 AM [facility] Lactate, Arterial 1.3 0.5 - 2.2 mmol/L 07/30/2024 12:58 AM [facility] Flow Rate 2.0 L/min 07/30/2024 12:58 AM EST [facility] IONIZED CALCIUM, ARTERIAL 1.12(L) 1.15 - 1.33 mmol/L 07/30/2024 12:58 AM EST [facility] Glucose, Arterial 184 65 - 199 mg/dL 07/30/2024 12:58 AM EST [facility] Comment:Glucose Concentratio n >=200 mg/dL plus symptoms is consistent with Diabetes Mellitus. Blood ARTERIAL BLOOD / Unknown 07/30/2024 12:57 AM EST 07/30/2024 12:58 AM EST Aubree Silverio MD POINT OF CARE TEST ORDERABLES [facility] [place] [address] * (ABNORMAL) Troponin - Single (07/29/2024 10:31 PM EST) Troponin-T, High Sensitivity >10,000(H ) <=22 ng/L 07/29/2024 11:03 PM EST [facility] Comment: This patient's troponin T [...] can be found in the [facility] Test Catalog Troponin - https://[email or web address]-.testcatalog.org/catalogs/565/files/59233 Reference: Fourth [place] Definition of Myocardial Infarction. Journal of the [place] [employer] 2018;72:6790-8991 Blood VENOUS BLOOD SPECIMEN / Unknown Venipuncture / Unknown 07/29/2024 10:31 PM EST 07/29/2024 10:36 PM EST Yrn Velazquez MD CHEMISTRY ORDERABL ES Performing Organization Address City/[facility]/ZIP Co de Phone Number [facility] [place] [address] * Potassium (07/29/2024 8:11 PM EST) Potassium 4.1 3.5 - 5.0 mMol/L 07/29/2024 8:52 PM EST [facility] Blood VENOUS BLOOD SPECIMEN / Unknown Venipuncture / Unknown 07/29/2024 8:11 PM EST 07/29/2024 8:16 PM EST Aubree Silverio MD CHEMISTRY ORDERABL ES Performing Organization Address [facility]/ZIP Co de Phone Number [facility] [place] [address] * (ABNORMAL) Troponin - Single (07/29/2024 8:11 PM EST) Troponin-T, High Sensitivity >10,000(H ) <=22 ng/L 07/29/2024 8:52 PM EST [facility] Comment: This patient's troponin T [...] can be found in the [facility] Test Catalog Troponin - https://[email or web address]-.testcatalog.org/catalogs/565/files/84036 Reference: Fourth [place] Definition of Myocardial Infarction. Journal of the [place] [employer] of [employer]iology 2018;72:3742-4843 Blood VENOUS BLOOD SPECIMEN / Unknown Venipuncture / Unknown 07/29/2024 8:11 PM EST 07/29/2024 8:16 PM EST Aubree Silverio MD CHEMISTRY ORDERABL ES [facility] [place] [address] * (ABNORMAL) Phosphorus (07/29/2024 8:11 PM EST) Phosphorus 2.1(L) 2.5 - 4.5 mg/dL 07/29/2024 8:52 PM EST [facility] Blood VENOUS BLOOD SPECIMEN / Unknown Venipuncture / Unknown 07/29/2024 8:11 PM EST 07/29/2024 8:16 PM EST Aubree Silverio MD CHEMISTRY ORDERABL ES [facility] [place] [address] * POC, GLUCOSE (07/29/2024 8:09 PM EST) Glucometer, POC 142 65 - 199 mg/dL 07/29/2024 8:09 PM EST [facility] Comment:Supplemental ranges: <140 mg/dL before meals <180 mg/dL all other times of the day. Blood CAPILLARY BLOOD / Unknown 07/29/2024 8:09 PM EST 07/29/2024 8:09 PM EST Aubree Silverio MD POINT OF CARE TEST ORDERABLES Performing Organization Address City/[facility]/ZIP Co de Phone Number [facility] [place] [address] * ABORH RECHECK (07/29/2024 6:43 PM EST) Pathologist [facility] ABORH Recheck AB POSITIVE 07/29/2024 10:13 PM EST [facility] Blood VENOUS BLOOD SPECIMEN / Unknown Venipuncture / Unknown 07/29/2024 6:43 PM EST 07/29/2024 7:15 PM EST Aubree Silverio MD BLOOD BANK LAB ORD ERABLES Performing Organization Address City/[facility]/ZIP Co de Phone Number [facility] [place] [address] * POC, GLUCOSE (07/29/2024 5:57 PM EST) [facility] Glucometer, POC 166 65 - 199 mg/dL 07/29/2024 5:57 PM EST [facility] Comment:Supplemental ranges: <140 mg/dL before meals <180 mg/dL all other times of the day. Blood CAPILLARY BLOOD / Unknown 07/29/2024 5:57 PM EST 07/29/2024 5:57 PM EST Aubree Silverio MD POINT OF CARE TEST ORDERABLES Performing Organization Address City/[facility]/ZIP Co de Phone Number [facility] [place] [address] * Type and screen ([facility]/CGP/MAGALIE) (07/29/2024 5:56 PM EST) Pathologist [facility] ABORH Type AB POSITIVE 07/29/2024 9:44 PM EST [facility] PATIENT HISTORY Not Found 07/29/2024 9:44 PM EST [facility] Expires at [id number] on: 08/01/2024 07/29/2024 9:44 PM EST [facility] ANTIBODY SCREEN AUTOMATED Negative 07/29/2024 9:44 PM EST [facility] T&S only valid at [facility] 07/29/2024 9:44 PM EST [facility] Blood VENOUS BLOOD SPECIMEN / Unknown Venipuncture / Unknown 07/29/2024 5:56 PM EST 07/29/2024 6:07 PM EST Narrative [facility] - 07/29/2024 9:44 PM EST This Type and Screen result is only valid at the [facility] Aubree Silverio MD BLOOD BANK LAB ORD ERABLES [facility] [place] [address] * (ABNORMAL) Troponin - Single (07/29/2024 4:52 PM EST) [facility] Troponin-T, High Sensitivity >10,000(H ) <=22 ng/L 07/29/2024 5:25 PM EST [facility] Comment: This patient's troponin T [...] can be found in the [facility] Test Catalog Troponin - https://[email or web address]-.testcatalog.org/catalogs/565/files/99785 Reference: Fourth [place] Definition of Myocardial Infarction. Journal of the [place] College of Cardiology 2018;72:8736-9604 Blood VENOUS BLOOD SPECIMEN / Unknown Venipuncture / Unknown 07/29/2024 4:52 PM EST 07/29/2024 4:57 PM EST Aubree Silverio MD CHEMISTRY ORDERABL ES Performing Organization Address City/[facility]/ZIP Co de Phone Number [facility] [place] [address] * EKG 12 Lead (07/29/2024 4:21 PM EST) Ventricular rate 72 BPM MUSE SYSTEM Atrial Rate 72 BPM MUSE SYSTEM P-R Interval 168 ms MUSE SYSTEM QRS Duration 82 ms MUSE SYSTEM Q-T Interval 392 ms MUSE SYSTEM QTC Calculated (Bezet) 429 ms MUSE SYSTEM Calculated P [place] 71 degrees MUSE SYSTEM Calculated R [place] 77 degrees MUSE SYSTEM Calculated T [place] 28 degrees MUSE SYSTEM INTERPRETATION Sinus rhythm with Premature supraventricular complexes and Occasional Premature ventricular complexes Low voltage QRS 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) Lateral injury pattern ACUTE CT / STEMI Abnormal ECG When compared with ECG of 29-JUL-2024 13:43, (unconfirmed) Serial changes of evolving Anteroseptal infarct Present Confirmed by MD Marcus, Roverto (1961) on 07/31/2024 5:30:06 AM MUSE SYSTEM 07/29/2024 4:21 PM EST 07/31/2024 5:30 AM EST Aubree Silverio MD ECG ORDERABLES Performing Organization Address [facility]/ZIP Co de Phone Number MUSE SYSTEM * (ABNORMAL) Blood Gas, Arterial POC (07/29/2024 4:21 PM EST) pH, Arterial 7.37 7.35 - 7.45 07/29/2024 4:22 PM EST [facility] PCO2, Arterial 36 35 - 45 mmHg 07/29/2024 4:22 PM EST [facility] PO2, Arterial 71(L) 85 - 104 mmHg 07/29/2024 4:22 PM EST [facility] Bicarbonate, Arterial 20.4 20.0 - 26.0 mmol/L 07/29/2024 4:22 PM EST [facility] Base Excess, Arterial -4.8(L) -3.0 - 3.0 mmol/L 07/29/2024 4:22 PM [facility] Hemoglobin, Arterial 12.2(L) 13.7 - 16.5 g/dL 07/29/2024 4:22 PM [facility] Oxyhemoglobin, Arterial 93.8(L) 94.0 - 97.0 % 07/29/2024 4:22 PM [facility] Carboxyhemoglobin , Arterial 0.5 % 07/29/2024 4:22 PM [facility] Comment: Nonsmokers: 0.5-1.5% COHB ?? Smokers: Variable ??but usually less than 10% ?? Toxic: 20-30% COHB ?? Lethal: Greater than 60% COHB Methemoglobin, Arterial 0.3 <=1.5 % 07/29/2024 4:22 PM [facility] Sodium, Arterial 134(L) 135 - 145 mmol/L 07/29/2024 4:22 PM [facility] Potassium, Arterial 4.2 3.5 - 5.0 mmol/L 07/29/2024 4:22 PM [facility] Chloride, Arterial 107 98 - 107 mmol/L 07/29/2024 4:22 PM [facility] Lactate, Arterial 1.5 0.5 - 2.2 mmol/L 07/29/2024 4:22 PM [facility] Fraction of Inspired Oxygen 21 % 07/29/2024 4:22 PM [facility] PF Ratio 338 Ratio 07/29/2024 4:22 PM [facility] Comment:PF ratio calculated using the non-temperature corrected pO2 result. IONIZED CALCIUM, ARTERIAL 1.12(L) 1.15 - 1.33 mmol/L 07/29/2024 4:22 PM [facility] Glucose, Arterial 181 65 - 199 mg/dL 07/29/2024 4:22 PM [facility] Comment:Glucose Concentratio n >=200 mg/dL plus symptoms is consistent with Diabetes Mellitus. Blood ARTERIAL BLOOD / Unknown 07/29/2024 4:21 PM EST 07/29/2024 4:22 PM EST Aubree Silverio MD POINT OF CARE TEST ORDERABLES [facility] [place] [address] * POC, GLUCOSE (07/29/2024 4:19 PM EST) Glucometer, POC 185 65 - 199 mg/dL 07/29/2024 4:19 PM EST [facility] Comment:Supplemental ranges: <140 mg/dL before meals <180 mg/dL all other times of the day. Blood CAPILLARY BLOOD / Unknown 07/29/2024 4:19 PM EST 07/29/2024 4:19 PM EST Aubree Silverio MD POINT OF CARE TEST ORDERABLES Performing Organization Address City/[facility]/ZIP Co de Phone Number [facility] [place] [address] * Blood culture (07/29/2024 4:08 PM EST) Blood Culture No growth at 120 hours 08/03/2024 5:01 PM EST [facility] Blood VENOUS BLOOD SPECIMEN / Unknown Venipuncture / Unknown 07/29/2024 4:08 PM EST 07/29/2024 4:15 PM EST Aubree Silverio MD MICROBIOLOGY - BLO OD ORDERABLES Performing Organization Address City/[facility]/ZIP Co de Phone Number [facility] [place] [address] * Blood culture (07/29/2024 4:08 PM EST) Blood Culture No growth at 120 hours 08/03/2024 5:01 PM EST [facility] Blood VENOUS BLOOD SPECIMEN / Unknown Venipuncture / Unknown 07/29/2024 4:08 PM EST 07/29/2024 4:26 PM EST Aubree Silverio MD MICROBIOLOGY - BLO OD ORDERABLES [facility] [place] [address] * XR Chest One View (07/29/2024 2:30 PM EST) WORKSTATION ID [id number] RAD Anatomical Region Laterality Modality Chest N/A [...] questions please contact the health ambulatory care that requested your imaging first. ? Electronically signed by: Chris Candelaria MD, [facility] ([phone]), at 07/29/2024 3:21 PM Narrative 07/29/2024 3:21 [...] have questions please contactthe health ambulatory care that requested your imaging first. Electronically signed by: Chris Candelaria MD, [facility]([phone]), at 07/29/2024 3:21 PM Vahe Marvin MD IMG DX ORDERABLES * (ABNORMAL) APTT (07/29/2024 2:03 PM EST) Pathologist [facility] Partial Thromboplastin Time >160(HHH) 25 - 37 sec 07/29/2024 2:56 PM EST [facility] Blood VENOUS BLOOD SPECIMEN / Unknown Venipuncture / Unknown 07/29/2024 2:03 PM EST 07/29/2024 2:13 PM EST Vahe Marvin MD HEMATOLOGY ORDERABLE S [facility] [place] [address] * (ABNORMAL) Prothrombin Time (07/29/2024 2:03 PM EST) Prothrombin Time 14.2(H) 9.4 - 12.5 sec 07/29/2024 2:56 PM EST [facility] International Normalization Ratio 1.3 <=4.9 07/29/2024 2:56 PM EST [facility] Comment: An INR < 2.0 [...] MD HEMATOLOGY ORDERABLE S Performing Organization Address City/[facility]/ZIP Co de Phone Number [facility] [place] [address] * CRP, acute inflammation (07/29/2024 2:03 PM EST) C-Reactive Protein <3.0 <=4.9 mg/L 07/29/2024 2:52 PM EST [facility] Blood VENOUS BLOOD SPECIMEN / Unknown Venipuncture / Unknown 07/29/2024 2:03 PM EST 07/29/2024 2:14 PM EST Vahe Marvin MD CHEMISTRY ORDERABLES Performing Organization Address City/[facility]/ZIP Co de Phone Number [facility] [place] [address] * Lipid Panel (Reflex Direct LDL) (07/29/2024 2:03 PM EST) Cholesterol, Total 133 mg/dL 07/29/2024 2:52 PM EST [facility] Comment: Desirable: < 200 mg/dL Borderline High: 200 - 239 mg/dL High: > or = 240 mg/dL Triglyceride 45 mg/dL 07/29/2024 2:52 PM EST [facility] Comment: Normal: <150 mg/dL Borderline High: 150-199 mg/dL High: 200-499 mg/dL Very High: > or =500 mg/dL HDL Cholesterol 58 mg/dL 2:52 PM [facility] Comment:Males: High Risk: <4 0 mg/dL LDL Cholesterol 64 mg/dL 2:52 PM [facility] Comment: Desirable: <100 mg/dL Above Desirable: 100-129 mg/dL Borderline High: 130-159 mg/dL High: 160-189 mg/dL Very High: > or =190 mg/dL Note: LDL calculation updated to the NIH LDL formula as of 04/15/2024 Non-HDL Cholesterol 75 mg/dL 07/29/2024 2:52 PM [facility] Comment: Desirable: <130 mg/dL Above Desirable: 130-159 mg/dL Borderline High: 160-189 mg/dL High: 190-219 mg/dL Very High: > or = 220 mg/dL Blood VENOUS BLOOD SPECIMEN / Unknown Venipuncture / Unknown 07/29/2024 2:03 PM EST 07/29/2024 2:14 PM EST [facility] - 07/29/2024 2:52 PM EST It [...] Marvin MD CHEMISTRY ORDERABLES Performing Organization Address City/[facility]/ZIP Co de Phone Number [facility] [place] [address] * TSH [place] (07/29/2024 2:03 PM EST) [facility] Thyroid Stimulating Hormone 0.70 0.27 - 4.20 mcIU/mL 07/29/2024 2:52 PM EST [facility] Blood VENOUS BLOOD SPECIMEN / Unknown Venipuncture / Unknown 07/29/2024 2:03 PM EST 07/29/2024 2:14 PM EST Vahe Marvin MD CHEMISTRY ORDERABLES Performing Organization Address [facility]/ZIP Co de Phone Number [facility] [place] [address] * Hemoglobin A1c (07/29/2024 2:03 PM EST) [facility] Hemoglobin A1c 5.3 4.3 - 5.6 % 07/29/2024 2:41 PM EST [facility] Comment: Per ADA guidelines, without [...] red blood cell turnover may not be solar manufacturer's representative of glycemic control. Reference Interval: 4.3 - 5.6% 5.7 - 6.4%: Consistent with prediabetes >=6.5%: Consistent with diagnosis of diabetes mellitus Estimated Average Glucose 07/29/2024 2:41 PM EST [facility] Comment:Estimated Average Gl ucose not appropriate for patients over 70 years of age. Blood VENOUS BLOOD SPECIMEN / Unknown Venipuncture / Unknown 07/29/2024 2:03 PM EST 07/29/2024 2:14 PM EST [facility] - 07/29/2024 2:41 PM EST Estimated average glucose (eAG) is calculated from the equation described in: Quinten ALVES, Rikki J, [place] R, et al. ??Translating the A1C assay into estimated average glucose values. ??Diabetes Care 2008:31(8):1722-7979. Additional resources are available on the ADA website (diabetes.org). Vahe Marvin MD CHEMISTRY ORDERABLES [facility] [place] [address] * (ABNORMAL) CBC (with Diff) (07/29/2024 2:03 PM EST) White Blood Cell 19.50(H) 4.00 - 9.50 x10(3)/mc L 07/29/2024 2:18 PM EST [facility] Red Blood Cell 4.81 4.58 - 5.54 x10(6)/mc L 07/29/2024 2:18 PM [facility] Hemoglobin 13.1(L) 13.7 - 16.5 g/dL 07/29/2024 2:18 PM [facility] Hematocrit 40.1(L) 40.5 - 48.5 % 07/29/2024 2:18 PM [facility] Mean Cell Volume 83.4 82.9 - 93.1 fL 07/29/2024 2:18 PM [facility] Mean Cell Hemoglobin 27.2(L) 27.5 - 32.1 pg 07/29/2024 2:18 PM [facility] Mean Cell Hemoglobin Concentration 32.7 32.0 - 35.7 g/dL 07/29/2024 2:18 PM [facility] Platelet 236 145 - 357 x10(3)/mc L 07/29/2024 2:18 PM [facility] Mean Platelet Volume 10.6 7.6 - 12.9 fL 07/29/2024 2:18 PM [facility] RDW Standard Deviation 43.7 36.0 - 45.0 fL 07/29/2024 2:18 PM [facility] RDW coefficient of variation 14.3(H) 11.4 - 13.8 % 07/29/2024 2:18 PM [facility] NRBC% auto 0.0 % 07/29/2024 2:18 PM [facility] NRBC Absolute <0.01 <0.01 x10(3)/mc L 07/29/2024 2:18 PM [facility] Neutrophil % 93.6 % 07/29/2024 2:18 PM [facility] Neutrophil Absolute (ANC) - Automated 18.28(H) 1.70 - 6.10 x10(3)/mc L 07/29/2024 2:18 PM [facility] Lymph % 2.7 % 07/29/2024 2:18 PM [facility] Lymph Absolute 0.52(L) 0.90 - 3.20 x10(3)/mc L 07/29/2024 2:18 PM EST [facility] Monocyte % 2.9 % 07/29/2024 2:18 PM EST [facility] Monocyte Absolute 0.56 0.30 - 0.90 x10(3)/mc L 07/29/2024 2:18 PM EST [facility] Eos % 0.0 % 07/29/2024 2:18 PM EST [facility] Eos Absolute <0.04 0.00 - 0.40 x10(3)/mc L 07/29/2024 2:18 PM EST [facility] Basophil % 0.3 % 07/29/2024 2:18 PM [facility] Baso Absolute 0.05 0.00 - 0.10 x10(3)/mc L 07/29/2024 2:18 PM EST [facility] Immature Gran % 0.5 % 2:18 PM [facility] Immature Gran Absolute 0.09(H) 0.00 - 0.04 x10(3)/mc L 07/29/2024 2:18 PM EST [facility] Blood VENOUS BLOOD SPECIMEN / Unknown Venipuncture / Unknown 07/29/2024 2:03 PM EST 07/29/2024 2:13 PM EST Vahe Marvin MD HEMATOLOGY ORDERABLE S Performing Organization Address City/State/[facility] Co de Phone Number [facility] [place] [address] * Phosphorus (07/29/2024 2:03 PM EST) Phosphorus 2.5 2.5 - 4.5 mg/dL 07/29/2024 2:52 PM EST [facility] Blood VENOUS BLOOD SPECIMEN / Unknown Venipuncture / Unknown 07/29/2024 2:03 PM EST 07/29/2024 2:14 PM EST Vahe Marvin MD CHEMISTRY ORDERABLES [facility] [place] [address] * Magnesium (07/29/2024 2:03 PM EST) Pathologist [facility] Magnesium 0.70 0.69 - 1.07 mMol/L 07/29/2024 2:52 PM EST [facility] Blood VENOUS BLOOD SPECIMEN / Unknown Venipuncture / Unknown 07/29/2024 2:03 PM EST 07/29/2024 2:14 PM EST Vahe Marvin MD CHEMISTRY ORDERABLES Performing Organization Address City/[facility]/ZIP Co de Phone Number [facility] [place] [address] * (ABNORMAL) Comprehensive metabolic panel (07/29/2024 2:03 PM EST) Pathologist [facility] Glucose 243(H) 65 - 199 mg/dL 07/29/2024 3:11 PM [facility] Comment:Glucose Concentratio n >=200 mg/dL plus symptoms is consistent with Diabetes Mellitus. Blood Urea Nitrogen 13 10 - 20 mg/dL 07/29/2024 3:11 PM [facility] Creatinine 0.88 0.80 - 1.50 mg/dL 07/29/2024 3:11 PM [facility] Sodium 138 135 - 145 mMol/L 07/29/2024 3:11 PM [facility] Potassium 3.6 3.5 - 5.0 mMol/L 07/29/2024 3:11 PM [facility] Chloride 104 98 - 107 mMol/L 07/29/2024 3:11 PM [facility] Carbon Dioxide 19(L) 22 - 31 mMol/L 07/29/2024 3:11 PM [facility] Anion Gap 15 5 - 15 mMol/L 07/29/2024 3:11 PM [facility] Calcium 8.0(L) 8.5 - 10.5 mg/dL 07/29/2024 3:11 PM EST [facility] Protein, Total 6.0(L) 6.1 - 8.0 g/dL 07/29/2024 3:11 PM [facility] Albumin 3.6 3.2 - 5.2 g/dL 07/29/2024 3:11 PM [facility] Aspartate Aminotransferase 07/29/2024 3:11 PM [facility] Comment:Unable to report due to hemolysis. Alanine Aminotransferase 56(H) 0 - 55 unit/L 07/29/2024 3:11 PM [facility] Alkaline Phosphatase 58 40 - 130 unit/L 07/29/2024 3:11 PM [facility] Bilirubin, Total 0.5 <=1.3 mg/dL 07/29/2024 3:11 PM [facility] Est Glomerular Filtration Rate - Male 91 mL/min/1. 73 m?? 07/29/2024 3:11 PM [facility] Comment: This patient's estimated [...] PM EST Vahe Marvin MD CHEMISTRY ORDERABLES [facility] [place] [address] * (ABNORMAL) Troponin - Single (07/29/2024 2:03 PM EST) [facility] Troponin-T, High Sensitivity >10,000(H ) <=22 ng/L 07/29/2024 2:52 PM EST [facility] Comment: This patient's troponin T [...] can be found in the [facility] Test Catalog Troponin - [email or web address]/catalogs/565/files/82184 Reference: Fourth [place] Definition of Myocardial Infarction. Journal of the [place] [employer] 2018;72:7591-9403 Blood VENOUS BLOOD SPECIMEN / Unknown Venipuncture / Unknown 07/29/2024 2:03 PM EST 07/29/2024 2:14 PM EST Vahe Marvin MD CHEMISTRY ORDERABLES [facility] [place] [address] * (ABNORMAL) Blood Gas, Venous POC (07/29/2024 2:01 PM EST) [facility] pH, Venous 7.30(L) 7.32 - 7.42 07/29/2024 2:02 PM EST [facility] PCO2, Venous 42 38 - 58 mmHg 07/29/2024 2:02 PM EST [facility] PO2, Venous 39 16 - 65 mmHg 07/29/2024 2:02 PM [facility] Bicarbonate, Venous 20.1(L) 22 - 31 mmol/L 07/29/2024 2:02 PM [facility] Base Excess, Venous -6.4(L) 1.9 - 4.5 mmol/L 07/29/2024 2:02 PM [facility] Hemoglobin, Venous 14.2 13.7 - 16.5 g/dL 07/29/2024 2:02 PM [facility] Oxyhemoglobin, Venous 69.3 % 07/29/2024 2:02 PM [facility] Carboxyhemoglobin , Venous 0.8 % 07/29/2024 2:02 PM [facility] Comment: Nonsmokers: 0.5-1.5% COHB ?? Smokers: Variable ??but usually less than 10% ?? Toxic: 20-30% COHB ?? Lethal: Greater than 60% COHB Methemoglobin, Venous 0.3 <=1.5 % 07/29/2024 2:02 PM [facility] Sodium, Venous 137 135 - 145 mmol/L 07/29/2024 2:02 PM [facility] Potassium, Venous 3.6 3.5 - 5.0 mmol/L 07/29/2024 2:02 PM [facility] Chloride, Venous 103 98 - 107 mmol/L 07/29/2024 2:02 PM [facility] Glucose, Venous 229(H) 65 - 199 mg/dL 07/29/2024 2:02 PM [facility] Comment:Glucose Concentratio n >=200 mg/dL plus symptoms is consistent with Diabetes Mellitus. Lactate, Venous 3.1(H) 0.5 - 2.2 mmol/L 07/29/2024 2:02 PM [facility] Ionized Calcium, Venous 1.11(L) 1.15 - 1.33 mmol/L 07/29/2024 2:02 PM [facility] Blood VENOUS BLOOD SPECIMEN / Unknown 07/29/2024 2:01 PM EST 07/29/2024 2:02 PM EST Vahe Marvin MD POINT OF CARE TEST O RDERABLES Performing Organization Address [facility]/State/ZIP Co de Phone Number [facility] [place] [address] * CARDIAC CATHETERIZATION (07/29/2024 1:20 PM EST) Anatomical Region Laterality Modality Other Narrative 07/29/2024 2:02 PM EST ?[facility] ? Cardiac Catheterization/Intervention Report ? Patient Name: Korey Montoya Kyrie. ? Procedure Date: 07/29/2024 ? A #: [id number] ? Primary Physician: Vahe Marvin ? Case #: [id number] ? File Name: [id number] ? Catheterization Order Number: [id number] ? [facility] ? Final Report [place], [place] ? Patient Name: ? Korey Montoya ?ID#: ?[id number] ? : ?1950 ? Procedure Date: ? [...] procedure was Emergent. The indication for ?the oven laborer visit is ACS less than or [...] 3.5 guiding catheter and a 3.5 Fr [place] [address] ??20 Mhz using ?Manual pullback. ??Imaging [...] ? A premounted 3.00 x 22 mm [place] (LOW) was deployed ? with a maximum [...] atmospheres. ??A premounted 3.00 x 08 mm [place] (LOW) ? was deployed with a maximum [...] dose administered prior to arrival in the oven laborer. ?Recommended anti-platelet/anti-thrombotic regimen: ?Start aspirin 81 mg daily now and continue for 12 months then stop. ?Start clopidogrel 75 mg daily now and continue for indefinitely. ?These recommendations are made at the time of the intervention. Patient ?and provider preferences or a changing clinical situation may require ?modification of this regimen. Consult [facility] Interventional Cardiology for ?questions. ?The 1 year [...] able ?to start weaning his inotropes/vasopressors. A [place] Colette catheter was ?placed demonstrating improvement in [...] ventricular assist device insertion, right heart ?catheterization, [place] (flow directed cath) insertion, access site ?angiography, vascular ultrasound, venous line / sheath insert and vascular ?closure device. ? Vahe S Shavonne, M.D. ? Electronically Signed by: Vahe Cobosstein, M.D. ? Report Finalized: 07/29/2024 ??13:55 ? Report Last Ammended: 07/30/2024 ??10:15 ? Procedure Note Vahe Marvin MD - 07/30/2024 [facility] Cardiac Catheterization/Intervention Report Patient Name: Korey Montoya Procedure Date: 07/29/2024 A #: [id number] Primary Physician: Vahe Marvin Case #: [id number] File Name: [id number] Catheterization Order Number: [id number] [facility] FinalReport [place], [place] Patient Name: Korey Montoya ID#:[id number] :1950 Procedure Date: July 29, 2024 Case [...] was designated as ASA Class IV. [facility] 4: Vulnerable. Diagnostic Tests: Electrocardiography: EKG was assessed by ECG. EKG was Abnormal. EKG showed STDeviation >= 0.5 mm. Medications Prior to Procedure: Angiotensin II Receptor Elvis and Statin. Indications for Diagnostic Cath: The priority of the diagnostic procedure was Emergent. Theindication for the oven laborer visit is ACS less than or [...] 3.5 guiding catheter and a 3.5 Fr [place] [address] 20 Mhzusing Manual pullback. Imaging was [...] for the procedure was Emergent.The [facility] indication for the procedure was STEMI-Immediate [...] The lesion was predilated with a 2.00mm [id number] MM balloon with a maximum inflation pressure of 12atmospheres. A premounted 3.00 x 22 mm [place] (LOW) wasdeployed with a maximum inflation pressure [...] atmospheres. A premounted 3.00 x 08 mm [place](LOW) was deployed with a maximum inflation pressure [...] dose administered prior to arrival in the oven laborer. Recommended anti-platelet/anti-thrombotic regimen: Start aspirin 81 mg daily now and continue for 12 months then stop. Start clopidogrel 75 mg daily now and continue for indefinitely. These recommendations are made at the time of the intervention.Patient and provider preferences or a changing clinical situation mayrequire modification of this regimen. Consult [facility] Interventional Cardiologyfor questions. The 1 year bleeding [...] wereable to start weaning his inotropes/vasopressors. A [place] Colette catheterwas placed demonstrating improvement in his [...] ventricular assist device insertion, right heart catheterization, [place] (flow directed cath) insertion, access site angiography, vascular ultrasound, venous line / sheath insert andvascular closure device. Vhae Marvni M.D. Electronically Signed by: Vahe Marvin M.D. Report Finalized: 07/29/2024 13:55 Report Last Ammended: 07/30/2024 10:15 Vahe Marvin MD CARDIAC CATH ORDERAB LES * (ABNORMAL) BLOOD GAS, POC (07/29/2024 12:46 PM EST) Sodium, POC 139 135 - 145 mmol/L 07/30/2024 7:30 AM [facility] Potassium, POC 3.4(L) 3.5 - 5.0 mmol/L 07/30/2024 7:30 AM [facility] pH, POC 7.33(L) 7.35 - 7.45 07/30/2024 7:30 AM [facility] Ionized Calcium, POC 1.13(L) 1.15 - 1.33 mmol/L 07/30/2024 7:30 AM [facility] pCO2, POC 38 35 - 45 mmHg 07/30/2024 7:30 AM [facility] pO2, POC 94 85 - 104 mmHg 07/30/2024 7:30 AM [facility] Base Excess, POC -6.0(L) -3.0 - 3.0 mmol/L 07/30/2024 7:30 AM [facility] Hematocrit, POC 39.0(L) 40.5 - 48.5 %PCV 07/30/2024 7:30 AM [facility] Hemoglobin, POC 13.3(L) 13.7 - 16.5 g/dL 07/30/2024 7:30 AM [facility] Comment:The calculation of h emoglobin from hematocrit assumes a normal MCHC. Bicarbonate, POC 19.8(L) 20.0 - 26.0 mmol/L 07/30/2024 7:30 AM [facility] Carbon Dioxide, POC 21(L) 22 - 31 mmol/L 07/30/2024 7:30 AM [facility] Blood VENOUS BLOOD SPECIMEN / Unknown 07/29/2024 12:46 PM EST 07/30/2024 7:30 AM EST Vahe Marvin MD POINT OF CARE TEST O RDERABLES [facility] [place] [address] * (ABNORMAL) BLOOD GAS, POC (07/29/2024 12:12 PM EST) Sodium, POC 135 135 - 145 mmol/L 07/30/2024 7:30 AM [facility] Potassium, POC 3.8 3.5 - 5.0 mmol/L 07/30/2024 7:30 AM [facility] pH, POC 7.27(LLL) 7.35 - 7.45 07/30/2024 7:30 AM [facility] Ionized Calcium, POC 1.14(L) 1.15 - 1.33 mmol/L 07/30/2024 7:30 AM [facility] pCO2, POC 43 35 - 45 mmHg 07/30/2024 7:30 AM [facility] pO2, POC 131(H) 85 - 104 mmHg 07/30/2024 7:30 AM [facility] Base Excess, POC -7.0(L) -3.0 - 3.0 mmol/L 07/30/2024 7:30 AM [facility] Hematocrit, POC 36.0(L) 40.5 - 48.5 %PCV 07/30/2024 7:30 AM [facility] Hemoglobin, POC 12.2(L) 13.7 - 16.5 g/dL 07/30/2024 7:30 AM [facility] Comment:The calculation of h emoglobin from hematocrit assumes a normal MCHC. Bicarbonate, POC 19.7(L) 20.0 - 26.0 mmol/L 07/30/2024 7:30 AM [facility] Carbon Dioxide, POC 21(L) 22 - 31 mmol/L 07/30/2024 7:30 AM [facility] Blood VENOUS BLOOD SPECIMEN / Unknown 07/29/2024 12:12 PM EST 07/30/2024 7:30 AM EST Vahe Marvin MD POINT OF CARE TEST O RDERABLES Performing Organization Address City/State/[facility] Co de Phone Number [facility] [place] [address] documented in this encounter Visit Diagnoses Not [...] RN) 0934 (Given - Provider: Tonya Watson, RNEEA) magnesium sulfate 2 g in sterile water [...] Until Discontinued, Routine 1352 (Given - Provider: Pravin Strauss RN)2024 (Given - Provider: Edouard Wisdom [...] Routine documented in this encounter Care Teams Etiologist Relationship Specialty Start Date End Date Yoel Artis APRN [address] [place] [address] PCP - General Internal Medicine 11/18/22 07/29/24 documented as of this encounter
--- OUTSIDE RECORDS SUMMARY | 2024-08-27 10:11 | XMS_ITS | Encounter Summary ---
Author Organization [facility] [place] [address] Care Team Providers Care Substitute Bus Driver Name Role Phone Alexia Mtz PATTERN FINISHER Primary Care Provider [phone] Encounter Details Date Type Department Care Team (Late st Contact Info) Description 04/23/2024 [place] [address] Alexia Mtz, PATTERN FINISHER [address] [place], [place] [id number] Elevated prostate specific antigen (PSA) Social History [...] AM EST Office Visit Cardiology at [address] [address] Mushtaq Murphy APRN documented as of this encounter Procedures Procedure Name Priority Date/Time Associated Diagnosis Comments PSA (ULTRASENSITIVE), TOTAL AND FREE Routine 04/23/2024 1:09 PM EDT Elevated prostate specific antigen (PSA) documented in this encounter Results * (ABNORMAL) PSA (Ultrasensitive), total and free (04/23/2024 1:09 PM EDT) Prostate Specific Antigen (Ultrasensitive) 5.24(H) 0.00-4.00 ng/mL ng/ml 04/23/2024 5:[address] [facility] Comment:The reference interv al (0 - [...] Free 1.1 ng/ml 04/23/2024 5:[address] [facility] Comment:This result was gene rated using a PowerMessage Osiel immunoassay. Results obtained from other methods or manufacturers cannot be used interchangeably with this method. PSA % Free 21 % 04/23/2024 5:[address] [facility] Comment: Probability of finding COST CONSULTANT on needle biopsy by age in years: [...] PM EDT Alexia Mtz APRN CHEMISTRY ORDERABLES [facility] [place] [address] documented in this encounter Visit Diagnoses Diagnosis Elevated prostate specific antigen (PSA) documented in this encounter Care Teams Substitute Bus Driver Relationship Specialty Start Date End Date Alexia Mtz APRN [address] [place] [address] PCP - General Family Medicine 07/30/24 documented as of this encounter
--- OUTSIDE RECORDS SUMMARY | 2024-08-27 10:11 | XMS_ITS | Encounter Summary ---
[place] [address] Care Team Providers Care In Tube Conversion Technician Name Role Phone Yoel Artis FREDRICK Primary Care Provider [phone] Encounter Details Date Type Department Care Team (Late st Contact Info) Description 01/16/2024 Interpretation Only [facility] [address] [place] [address] Chaparro Montana MD [address] [place] [address] Social History Tobacco Use Types Packs/Day Years [...] 10:00 AM EST Office Visit Cardiology at [address] [address] Mushtaq Murphy APRN documented as of this encounter Procedures Procedure Name Priority Date/Time Associated Diagnosis Comments CT HEAD WO CONTRAST (GENERIC) STAT 01/16/2024 4:17 PM EDT documented in this encounter Results * CT Head wo Contrast (Generic) (01/16/2024 4:17 PM EDT) PT CLASS E RAD ADMITDTTM [id number] RAD PT RAD INFO [id number]^Haniss henry^Chaparro RAD EXAM DESC CTHEAD^CT Head w/o Contrast^RIS [facility] WORKSTATION ID [id number] [facility] Anatomical Region Laterality Modality Head Computed Tomogra phy 01/16/2024 4:03 PM EDT Impressions 01/16/2024 4:25 PM EDT No acute intracranial pathology. Thank you for letting us participate in the care of this patient. ??If you are a health care provider and have any questions regarding this report, please contact the number below. ??For patients who have questions please contact the health child care leader that requested your imaging first. [...] patients who have questions please contactthe health child care leader that requested your imaging first. Electronically signed by: Alejandro Tenorio MD, [facility]([phone]), at 01/16/2024 4:25 PM Chaparro Montana MD IMG CT ORDERABLES documented in this encounter Visit Diagnoses Not on filedocumented in this encounter Care Teams In Tube Conversion Technician Relationship Specialty Start Date End Date Yoel Artis APRN [address] [place] [address] PCP - General Internal Medicine 11/18/22 07/29/24 documented as of this encounter
--- OUTSIDE RECORDS SUMMARY | 2024-08-27 10:11 | XMS_ITS | Encounter Summary ---
Author Organization [facility] Address [facility] [place] [address] Care Team Providers Care Carton Stamper Name Role Phone Carola Artis APRN Primary Care Provider [phone] Encounter Details Date Type Department Care Team (Latest Contact Info) Description 11/30/2023 8:00 AM EDT TH Visit (TeleHealth) [place] [address] Carola Dangelo APRN [facility] [place] [address] Proctalgia fugax; Constipation, unspecified constipation type Social [...] Handout for Patients and Primary Care Providers [facility] Gastrointestinal Motility, Esophageal, and Swallowing Disorders [facility] What are functional bowel disorders? These are the most common type of gastrointestinal disorders in the [facility] The most common functional bowel disorder in [...] what is the impact? 15-20% of general [place] population has IBS or FD or both 2nd most common cause for lost work days (after common cold) in [place] Estimated $30 billion dollar cost to [place] per year These disorders can have [...] with immediate onset of symptoms after infection); longwall machine operator helper symptoms are expected in most patients however [...] to you primary care provider and/or local supervisor agricultural education and share this document. Treatment of functional [...] - this approach benefits most patients OTC (qhet-xnb-tidavdf) medications can be used for ongoing bothersome symptoms as listed below Your provider (PCP or local Gastroenterology provider or [facility] Gastroenterology provider) may decide to use [...] All-Bran psyllium buds, Metamucil, Konsyl, bulk psyllium ([employer] and [employer] stores) Specifically we recommend starting Metamucil or [...] but convincing medical evidence is still lacking Jwpe-jna-mefumdx supplements including probiotics are not typically evaluated [...] to decrease antibiotic-associated diarrhea and antibiotic-related infections Qvrn-ohj-Ctcdqvs Medications for Functional Gut Disorders Based on [...] a stool softener that is safe for half-way usage (no risk of dependency) andthe dosage [...] (GERD) Often a combination of anti-nausea medications (calg-ddl-hroccwm or prescription) works better thanhigh doses of [...] for misuse/misinterpretation of this information Patient Resources [place] [employer] https://www.gastro.org/practice-guidance/ri-gvjwafd-awpagc/ topic/kpwwaxovv-hqsvp-yougehhk-ibs Badgut.org https://badgut.org/information-centre/a-g-prxtxupoq-topics/ibs/ AboutIBS.org https://www.aboutibs.org/ Uptodate.com https://www.uptodate.com/contents/ghdspjked-gcacs-vfhtmhvk-klrsum-ogj-uhuvzl documented in this encounter Progress Notes * [...] Take by mouth. nitroGLYcerin (NITROLINGUAL) 400 mcg/spray [place], Non-Aerosol 1 spray to anus for proctalgia fugax as needed, not to exceed once daily 12 g 0 No facility-administered medications prior to visit. Allergies: has No Known Allergies. Past Medical History: has a past medical history of ADHD, HLD (hyperlipidemia), HTN (hypertension),and Tremor. Past Surgical History: has a past surgical history that includes Hand surgery and Colonoscopy, Antonieta Pfeiffer ([id number]) (N/A, 08/30/2023). Family History: family history is [...] for re-evaluation. The patient was located in [place] at the time of their visit. Carola Dangelo APRN [facility] [place] [address] documented in this encounter Miscellaneous Notes * Addendum Note - Carola Dangelo APRN - 11/30/2023 8:00 AM EDTAddended by: CAROLA DANGELO on: 11/30/2023 08:46 AM Modules accepted: Level of Service documented in this encounter Plan of Treatment Upcoming Encounters Date Type Department Care Team (Late st Contact Info) Description 10/01/2024 10:00 AM EST Office Visit Cardiology at [address] [address] Mushtaq Murphy APRN documented as of this encounter Visit Diagnoses Diagnosis Proctalgia fugax Anal spasm Constipation, unspecified constipation type documented in this encounter Care Teams Carton Stamper Relationship Specialty Start Date End Date Carola Artis APRN [address] [place] [address] PCP - General Internal Medicine 11/18/22 07/29/24 documented as of this encounter
--- OUTSIDE RECORDS SUMMARY | 2024-08-27 10:11 | XMS_ITS | Encounter Summary ---
Author Organization [facility] [place] [address] Care Team Providers Care Tank Calibrator Name Role Phone Yoel Artis Ute ALCALA Primary Care Provider [phone] Encounter Details Date Type Department Care Team (Late st Contact Info) Description 07/29/2024 Interpretation Only [facility] [address] [place] [id number] Chaparro Montana MD [address] [place] [address] Social History Tobacco Use Types Packs/Day Years Used Date Smoking Tobacco: Former Cigarettes Smokeless Tobacco: Never Alcohol Use Standard Drinks/Week Comments Not Currently 0 (1 standard drink = 0.6 oz pur e alcohol) [facility] Utilities Answer Date Recorded In the past 12 months has Nic[employer], gas, oil, or water [employer] threatened to shut off services in your [...] any time in the past 12 m [facility], were you homeless or living in a halfway (including now)? No 07/30/2024 IPV Inpatient Questions [...] AM EST Office Visit Cardiology at [address] [address] Mushtaq Murphy APRN documented as of this encounter Procedures Procedure Name Priority Date/Time Associated Diagnosis Comments XR CHEST ONE VIEW STAT 07/29/2024 10: 50 AM EST documented in this encounter Results * XR Chest One View (07/29/2024 10:50 AM EST) PT CLASS E RAD ADMITDTTM [id number] RAD PT RAD MD INFO [id number]^Jordy henry^Chaparro RAD EXAM DESC XCXR1^XR Chest 1 [...] who have questions please contact the health property caretaker that requested your imaging first. ? Narrative [...] patients who have questions please contactthe health property caretaker that requested your imaging first. Chaparro Montana MD IMG DX ORDERABLES documented in this encounter Visit Diagnoses Not on filedocumented in this encounter Care Teams Tank Calibrator Relationship Specialty Start Date End Date Yoel Artis APRN [address] [place] [address] PCP - General Internal Medicine 11/18/22 07/29/24 documented as of this encounter
--- OUTSIDE RECORDS SUMMARY | 2024-08-27 10:12 | XMS_ITS | Encounter Summary ---
Author Organization [facility] [place] [address] Care Team Providers Care Wood Treating Inspector Name Role Phone Yoel Artis APRN Primary Care Provider Encounter Details Date Type Department Care Team (Late st Contact Info) Description 03/01/2023 9:30 AM EDT - 03/01/2023 11:59 PM EDT Hospital Encounter [facility] [address] [place] [address] Yoel Artis APRN [address] [place] [address] Discharge Disposition: Home Social History Tobacco Use [...] 10:00 AM EST Office Visit Cardiology at [address] [address] Mushtaq Murphy APRN documented as of this encounter Procedures Procedure Name Priority Date/Time Associated Diagnosis Comments PSA (ULTRASENSITIVE) Routine 03/01/2023 9:38 AM EDT documented in this encounter Results * (ABNORMAL) PSA (Ultrasensitive) (03/01/2023 9:38 AM EDT) Prostate Specific Antigen (Ultrasensitive) 5.09(H) 0.00 - 4.00 ng/mL [facility] Comment: PLEASE NOTE: The above [...] In Lab Yoel Artis APRN CHEMISTRY ORDERABLES [facility] [place] [address] documented in this encounter Visit Diagnoses Not on filedocumented in this encounter Care Teams Wood Treating Inspector Relationship Specialty Start Date End Date Yoel Artis APRN [address] [place] [address] PCP - General Internal Medicine 11/18/22 07/29/24 documented as of this encounter
--- OUTSIDE RECORDS SUMMARY | 2024-08-27 10:12 | XMS_ITS | Encounter Summary ---
[place] [address] Care Team Providers Care Digester Hand Name Role Phone Yoel Artis Ute ALCALA Primary Care Provider [phone] Encounter Details Date Type Department Care Team (Late st Contact Info) Description 08/26/2023 Telephone [place] [phone] Madelyn Vasquez Social History Tobacco Use Types [...] - 08/26/2023 9:23 AM EST Korey Montoya [id number] Diagnosis/Indication: Rectal pain, fecal smearing Please review [...] ever had a/an Colonoscopy before? Yes: Date ywephh7yds ago [facility] If yes, did you have any [...] procedure? No You must have a responsible democrat who will drive you to your procedure, stay on campus for the entire duration of your procedure, and drive you home from your procedure. Who will likely be your route delivery service driver for the procedure? Please Verify the [...] 10:00 AM EST Office Visit Cardiology at [address] [address] Mushtaq Murphy APRN documented as of this encounter Visit Diagnoses Not on filedocumented in this encounter Care Teams Digester Hand Relationship Specialty Start Date End Date Yoel Artis APRN [address] [place] [address] PCP - General Internal Medicine 11/18/22 07/29/24 documented as of this encounter
--- OUTSIDE RECORDS SUMMARY | 2024-08-27 10:12 | XMS_ITS | Encounter Summary ---
Author Organization [facility] Address [facility] [place] [address] Care Team Providers Care Sap Pp Consultant Name Role Phone Yoel Artis Ute ALCALA Primary Care Provider [phone] Reason for Visit * Auth/Cert (Routine) Specialty Diagnoses / Procedures Referred By Contelaezar t Referred To Contact Diagnoses Anal spasm Fecal smearing Constipation, unspecified Rectal pain, fecal smearing Procedures PRO COLONOSCOPY, DIAGNOSTIC PRO COLONOSCOPY, BIOPSY PRO COLONOSCOPY, REMV LESN, SNARE COLONOSCOPY, DIAGNOSTIC (WRVU 3.26) Brandan Mcgovern MD [facility] [place] [address] [facility] Referral ID Status Reason Start Date Expiration Date Visits Re quested Visits Authorized [id number] 1 1 Encounter Details Date Type Department Care Team (Latest Contact Info) Description 08/30/2023 10:09 AM EST - 08/30/2023 12:19 PM EST Hospital Encounter [place] [address] Brandan Mcgovern MD [facility] [place] [address] Discharge Disposition: Home Social History Tobacco Use [...] occurs, please contact your Doctor. Please call [phone] before 8pm Mon-Fri with problems, questions or concerns. If you call after 8pm or on weekends, call the Hospital at [phone] and ask to speak to the Wheel Setter evaluation advisor and the metal riveting machine operator will contact that person for you. When should you call for help? Call [phone] anytime you think you may need emergency [...] any problems. Where can you learn more? [facility] View your After Visit Summary and more online at [email or web address] If you would like to provide feedback about your hospital experience, please call the Office of Patient and Family Relations at . If you have received this After Visit Summary in error, please immediately return it in person to the department, or notify the [facility] Privacy Office by calling toll free at between the hours of 8AM and 5PM to arrange for our retrieval of the documents at no cost to you. Content Version: 12.2 ?? 2278-3651 [employer]. Care instructions adapted under license by [facility]. If you have questions about a medical condition or this instruction, always ask your healthcare professional. [employer] disclaims any warranty or liability for your [...] evening. 04/17/2023 08/04/2024 nitroGLYcerin (NITROLINGUAL) 400 mcg/spray [place], Non-AerosolIndications:P roctalgia fugax,Fecal smearing,Constipation, unspecified constipation type [...] AM EST Office Visit Cardiology at [address] [address] Mushtaq Murphy, FREDRICK documented as of this encounter Procedures Procedure Name Priority Date/Time Associated Diagnosis Comments SPECIMEN TO PATHOLOGY Routine 08/30/2023 11:23 AM EST SURGICAL PATHOLOGY REPORT Routine 08/30/2023 11:21 AM EST COLONOSCOPY Routine 08/30/2023 10:57 AM EST Colonoscopy, Remv Lesn, Snare ([id number]) 08/30/2023 10:44 AM EST Proctalgia fugax Fecal smearing Constipation, unspecified constipation type documented in this encounter Results * Specimen to Pathology (08/30/2023 11:23 AM EST) AP Specimen 08/30/2023 11:2 3 AM EST 08/30/2023 11:23 AM EST Narrative [facility] - 08/30/2023 11:23 AM EST Specimen requisition ordered. ??Separate Pathology report to follow Brandan Mcgovern MD PATHOLOGY/CYTOLOGY O JOSH Performing Organization Address [facility]/ZIP Co de Phone Number [facility] [place] [phone] * Surgical Pathology Report (08/30/2023 11:21 AM EST) Final Diagnosis [id number] ? Location: 4T; EA12; A The signing pathologist has (i) examined the relevant preparation(s) for the specimen(s) and (ii) rendered or confirmed the diagnosis(es). . ?Surgical Pathology DIAGNOSIS A - Sigmoid colon polyp, resection (Multiple): - ??Tubular adenoma. CR-PX Electronically signed by: ?Blake ORTEGA PhD, Yulia Verified: ??09/08/2023 14:48 ??Pathologist Performed at: ??-[facility] Dept. of Pathology, [place] [address] Marketing Operations Associate: Fercho Chan MD, FCAP, ??CLIA Certificate: [id number] SPECIMEN(S) SUBMITTED A - Sigmoid colon polyp, resection (Multiple) CLINICAL INFORMATION 73-year-old male, history of rectal pain SPECIMEN PROCESSING A - Labeled/Fixativ e: Sigmoid colon polyp, formalin. Quantity/Size: Single, 0.8 cm. Tissue Description: Soft, candelaria tissue. Sections/Proces sing: Submitted in toto ??in 1 cassette labeled A1. ??sdy 09/08/2023 2:48 PM EST [facility] GI Biopsy 08/30/2023 11:2 1 AM EST 08/30/2023 11:21 AM EST Brandan Mcgovern MD PATHOLOGY/CYTOLOGY O JOSH Performing Organization Address City/[facility]/ZIP Co de Phone Number [facility] [place] [address] [facility] [place] [address] * COLONOSCOPY (08/30/2023 10:57 AM EST) COLONOSCOPY [facility] Endoscopy Procedure Date: 08/30/2023 10:57 AM ? Patient Name: Korey Montoya ? Date of : 1950 ? Age: 73 ? Order #: [id number] ? Instrument Name: [id number] ? Procedure: ? Colonoscopy Indications: ? Rectal [...] preparation was evaluated ? using the BBPS ([place] Bowel ? Preparation Scale) with scores of: [...] Routine 1046 (Given - Provid er: Tika Folwer RN)1049 (Given - Provider: Tika Fowler RN)1057 (Given - Provider: Tika Fowler RN)1100 (Given - Provider: Tika Fowler RN)1106 (Given - Provider: Tika Fowler RN) documented in this encounter Care Teams Sap Pp Consultant Relationship Specialty Start Date End Date Yoel Artis APRN [address] [place] [address] PCP - General Internal Medicine 11/18/22 07/29/24 documented as of this encounter
--- OUTSIDE RECORDS SUMMARY | 2024-08-27 10:12 | XMS_ITS | Encounter Summary ---
Author Organization [facility] [place] [address] Care Team Providers Care Outpatient Services Director Name Role Phone Yoel Artis Ute ALCALA Primary Care Provider [phone] Reason for Visit * Auth/Cert (Routine) Specialty Diagnoses / Procedures Referred By Conteleazar t Referred To Contact Diagnoses Anal spasm Fecal smearing Constipation, unspecified Rectal pain, fecal smearing Procedures PRO COLONOSCOPY, DIAGNOSTIC PRO COLONOSCOPY, BIOPSY PRO COLONOSCOPY, REMV LESN, SNARE COLONOSCOPY, DIAGNOSTIC (WRVU 3.26) Brandan Mcgovern MD [facility] [place] [address] [facility] Referral ID Status Reason Start Date Expiration Date Visits Re quested Visits Authorized [id number] 1 1 Encounter Details Date Type Department Care Team (Late st Contact Info) Description 08/30/2023 11:00 AM EST - 08/30/2023 12:00 PM EST Surgery [place] [address] Brandan Mcgovern MD [facility] [place] [address] COLONOSCOPY, POLYPECTOMY, REMOVAL LESION BY SNARE (WRVU [...] occurs, please contact your Doctor. Please call [phone] before 8pm Mon-Fri with problems, questions or concerns. If you call after 8pm or on weekends, call the Hospital at [phone] and ask to speak to the Curtains [employer] Dra[employer] Salesperson administration clerk and the solution make up operator will contact that person for you. When should you call for help? Call [phone] anytime you think you may need emergency [...] any problems. Where can you learn more? [facility] View your After Visit Summary and more online at [email or web address] If you would like to provide feedback about your hospital experience, please call the Office of Patient and Family Relations at . If you have received this After Visit Summary in error, please immediately return it in person to the department, or notify the [facility] Privacy Office by calling toll free at between the hours of 8AM and 5PM to arrange for our retrieval of the documents at no cost to you. Content Version: 12.2 ?? [phone] [employer]. Care instructions adapted under license by [facility]. If you have questions about a medical condition or this instruction, always ask your healthcare professional. [employer] disclaims any warranty or liability for your [...] evening. 04/17/2023 08/04/2024 nitroGLYcerin (NITROLINGUAL) 400 mcg/spray [place], Non-AerosolIndications:P roctalgia fugax,Fecal smearing,Constipation, unspecified constipation type [...] AM EST Office Visit Cardiology at [address] [address] Mushtaq Murphy APRN documented as of this encounter Procedures Procedure Name Priority Date/Time Associated Diagnosis Comments SPECIMEN TO PATHOLOGY Routine 08/30/2023 11:23 AM EST SURGICAL PATHOLOGY REPORT Routine 08/30/2023 11:21 AM EST COLONOSCOPY Routine 08/30/2023 10:57 AM EST Colonoscopy, Remv Lesn, Snare ([id number]) 08/30/2023 10:44 AM EST Proctalgia fugax Fecal smearing Constipation, unspecified constipation type documented in this encounter Results * Specimen to Pathology (08/30/2023 11:23 AM EST) AP Specimen 08/30/2023 11:2 3 AM EST 08/30/2023 11:23 AM EST Narrative [facility] - 08/30/2023 11:23 AM EST Specimen requisition ordered. ??Separate Pathology report to follow Brandan Mcgovern MD PATHOLOGY/CYTOLOGY O JOSH Performing Organization Address [facility]/ZIP Co de Phone Number [facility] [place] [address] * Surgical Pathology Report (08/30/2023 11:21 AM EST) Final Diagnosis [id number] ? Location: 4T; EA12; A The signing pathologist has (i) examined the relevant preparation(s) for the specimen(s) and (ii) rendered or confirmed the diagnosis(es). . ?Surgical Pathology DIAGNOSIS A - Sigmoid colon polyp, resection (Multiple): - ??Tubular adenoma. CR-PX Electronically signed by: ?Blake ORTEGA PhD, Yulia Verified: ??09/08/2023 14:48 ??Pathologist Performed at: ??-[facility] Dept. of Pathology, [place] [address] [employer] Farmworker: Fercho Chan MD, AP, ??CLIA Certificate: [id number] SPECIMEN(S) SUBMITTED A - Sigmoid colon polyp, resection (Multiple) CLINICAL INFORMATION 73-year-old male, history of rectal pain SPECIMEN PROCESSING A - Labeled/Fixativ e: Sigmoid colon polyp, formalin. Quantity/Size: Single, 0.8 cm. Tissue Description: Soft, candelaria tissue. Sections/Proces sing: Submitted in toto ??in 1 cassette labeled A1. ??sdy 09/08/2023 2:48 PM EST [facility] GI Biopsy 08/30/2023 11:2 1 AM EST 08/30/2023 11:21 AM EST Brandan Mcgovern MD PATHOLOGY/CYTOLOGY O JOSH [facility] [place] [address] [place] [address] * COLONOSCOPY (08/30/2023 10:57 AM EST) [facility] COLONOSCOPY [facility] Endoscopy Procedure Date: 08/30/2023 10:57 AM ? Patient Name: Korey Montoya ? Date of : 1950 ? Age: 73 ? Order #: [id number] ? Instrument Name: [id number]- [id number] ? Procedure: ? Colonoscopy Indications: ? Rectal [...] preparation was evaluated ? using the BBPS ([place] Bowel ? Preparation Scale) with scores of: [...] RN) documented in this encounter Care Teams Outpatient Services Director Relationship Specialty Start Date End Date Yoel Artis, FREDRICK [address] [place] [address] PCP - General Internal Medicine 11/18/22 07/29/24 documented as of this encounter
--- OUTSIDE RECORDS SUMMARY | 2024-08-27 10:12 | XMS_ITS | Encounter Summary ---
[place] [address] Care Team Providers Care Supervisor Sulfuric Acid Plant Name Role Phone Yoel Artis APRN Primary Care Provider [phone] Reason for Referral * Consultation (Routine) - Closed Specialty Diagnoses / Procedures Referred By Theodore muro Referred To Contact Urology Diagnoses Raised prostate specific antigen PERSISTENTLY MILDLY ELEVATED PSA, URINARY FREQ Yoel Artis APRN [address] [place] [address] [facility] [place] [address] Referral ID Status Reason Start Date Expiration Date V isits Requested Visits Authorized [id number] Closed Consult, Test & Treat PCP Updated and/or Approved 07/30/2023 07/29/2024 6 6 Encounter Details Date Type Department Care Team (Late st Contact Info) Description 07/30/2023 Transcribe Orders eDH Incoming Referrals [phone] Yoel Artis APRN [address] [place] [address] Raised prostate specific antigen Social [...] AM EST Office Visit Cardiology at [address] [address] Mushtaq Murphy APRN Scheduled Referrals Name Type Priority Associated Diagnoses Orde r Schedule Referral to Urology Outpatient Referral Routine Raised prostate specific antigen Ordered: 07/30/2023 documented as of this encounter Visit Diagnoses Diagnosis Raised prostate specific antigen Elevated prostate specific antigen (PSA) documented in this encounter Care Teams Supervisor Sulfuric Acid Plant Relationship Specialty Start Date End Date Yoel Artis APRN [address] [place] [address] PCP - General Internal Medicine 11/18/22 07/29/24 documented as of this encounter
--- OUTSIDE RECORDS SUMMARY | 2024-08-27 10:12 | XMS_ITS | Encounter Summary ---
Author Organization [facility] Address [facility] [place] [address] Care Team Providers Care Security Architect Name Role Phone Unknown Primary Care Provider Unavailabl e Encounter Details Date Type Department Care Team (Late st Contact Info) Description 01/13/2019 9:05 PM EDT Ancillary Procedure Radiology Library at [facility] [place] [phone] Sunny Aviles MD [facility] [place] [address] Social History Tobacco Use Types Packs/Day Years [...] 10:00 AM EST Office Visit Cardiology at [address] [place] [phone] Mushtaq Murphy, MANAGEMENT DEVELOPER documented as of this encounter Procedures Procedure [...] Aviles MD IMG FILM LIBRARY ORDERABLES [place]ER[place], [place] documented in this encounter Visit Diagnoses Not on filedocumented in this encounter Care Teams Security Architect Relationship Specialty Start Date End Date Unknown None PCP - General 08/04/10 01/16/19 documented as of this encounter
--- OUTSIDE RECORDS SUMMARY | 2024-08-27 10:12 | XMS_ITS | Encounter Summary ---
Author Organization [facility] [place] [address] Care Team Providers Care Veneer Sample Maker Name Role Phone Yoel Artis APRN Primary Care Provider Encounter Details Date Type Department Care Team (Late st Contact Info) Description 12/23/2022 8:20 AM EDT - 12/23/2022 11:59 PM EDT Hospital Encounter [facility] Lab [address] [place] [address] Yoel Artis APRN [address] [place] [address] Discharge Disposition: Home Social History Tobacco Use [...] AM EST Office Visit Cardiology at [address] [address] Mushtaq Murphy APRN documented as of this encounter Procedures Procedure Name Priority Date/Time Associated Diagnosis Comments PSA SCREEN Routine 12/23/2022 8:43 AM EDT documented in this encounter Results * (ABNORMAL) PSA Screen (12/23/2022 8:43 AM EDT) PSA Screen 4.37(H) 0.00 - 4.00 ng/mL [facility] Comment: PLEASE NOTE: The above reference [...] Artis APRN CHEMISTRY ORDERABLES Performing Organization Address City/State/[facility] Co de Phone Number [facility] [place] [address] documented in this encounter Visit Diagnoses Not on filedocumented in this encounter Care Teams Veneer Sample Maker Relationship Specialty Start Date End Date Yoel Artis APRN [address] [place] [address] PCP - General Internal Medicine 11/18/22 07/29/24 documented as of this encounter
--- OUTSIDE RECORDS SUMMARY | 2024-08-27 10:12 | XMS_ITS | Encounter Summary ---
Author Organization [facility] [place] [address] Care Team Providers Care Bulk Station Operator Name Role Phone Anibal Mtz MD Primary Care Provider [phone] Encounter Details Date Type Department Care Team (Late st Contact Info) Description 11/08/2022 Interpretation Only [address] [phone] Eve Frost MD [address] [place] [address] Social History Tobacco Use Types Packs/Day Years [...] AM EST Office Visit Cardiology at [address] [address] Mushtaq Murphy APRN documented as of this encounter Procedures Procedure Name Priority Date/Time Associated Diagnosis Comments XR CHEST PA AND LATERAL STAT 11/08/2022 10:34 AM EST documented in this encounter Results * XR Chest PA & Lateral (Generic) (11/08/2022 10:34 AM EST) PT CLASS E RAD ADMITDTTM RAD PT RAD INFO [id number]^C HANDER^SUNEE R RAD EXAM DESC XCXR2^XR CHEST [...] who have questions please contact the health md do resident urgent care that requested your imaging first. ? Electronically signed by: Alejandro Tenorio MD, [facility] ([phone]), at 11/08/2022 10:37 AM Narrative 11/08/2022 10:37 [...] patients who have questions please contactthe health md do resident urgent care that requested your imaging first. Eve Frost MD IMG DX ORDERABLES documented in this encounter Visit Diagnoses Not on filedocumented in this encounter Care Teams Bulk Station Operator Relationship Specialty Start Date End Date Anibal Mtz MD [address] [place] [address] PCP - General Family Medicine 01/17/19 11/17/22 documented as of this encounter
--- OUTSIDE RECORDS SUMMARY | 2024-08-27 10:12 | XMS_ITS | Encounter Summary ---
Author Organization [facility] [place] [address] Care Team Providers Care Senior Research Analyst Name Role Phone Yoel Artis APRN Primary Care Provider Reason for Referral * Consultation (Routine) - Closed Specialty Diagnoses / Procedures Referred By Theodore muro Referred To Contact Gastroenterology Diagnoses Proctalgia fugax Fecal smearing Constipation, unspecified constipation type group Yoel Dangelo APRN [facility] [place] [address] Paulette Glynn, PhD [facility] [place] [address] Referral ID Status Reason Start Date Expiration Date V isits Requested Visits Authorized [id number] Closed Consult, Test & Treat 06/01/2023 05/31/2024 1 1 Reason for Visit * Consultation (Routine) - Closed Specialty Diagnoses / Procedures Referred By Theodore muro Referred To Contact Gastroenterology Diagnoses Anal spasm motility- anal spasms Yoel Artis APRN [address] [place] [address] [facility] Gastro [address] [place] [address] Referral ID Status Reason Start Date Expiration Date V isits Requested Visits Authorized [id number] Closed Consult, Test & Treat PCP Updated and/or Approved 11/18/2022 11/18/2023 6 6 Encounter Details Date Type Department Care Team (Latest Contact Info) Description 06/01/2023 8:00 AM EDT TH Visit (TeleHealth) [place] [address] Yoel Dangelo, EFFICIENCY CLERK [facility] [place] [address] Proctalgia fugax; Fecal smearing; Constipation, unspecified constipation [...] hear from us within 1 week: Clinic [phone] Motility Lab scheduling [phone] Endoscopy scheduling- [phone] Diagnostics: -Colonoscopy for rectal pain -Anorectal manometry [...] connection and our services, please visit the [facility] Behavioral health website at: [email or web address]. Our hope is that through these classes, [...] please contact your insurance company or the [facility] billing office ([email or web address]). Your insurance company may request a CPT code if you ask about coverage. [place] [address]. If you're interested in attending any of these classes or workshops, please reach out to our scheduling team via [facility] or phone ([phone]). You should start a fiber supplement if [...] Handout for Patients and Primary Care Providers [facility] [...] what is the impact? 15-20% of general [place] population has IBS or FD or both 2nd most common cause for lost work days (after common cold) in [place] Estimated $30 billion dollar cost to [place] economy per year These disorders can have [...] with immediate onset of symptoms after infection); senior care symptoms are expected in most patients however [...] to you primary care provider and/or local food demonstrator and share this document. Treatment of functional [...] - this approach benefits most patients OTC (ndry-spz-ytowgqa) medications can be used for ongoing bothersome symptoms as listed below Your provider (PCP or local Gastroenterology provider or [facility] Gastroenterology provider) may decide to use [...] All-Bran psyllium buds, Metamucil, Konsyl, bulk psyllium ([employer] stores and [employer] stores) Specifically we recommend starting Metamucil or [...] but convincing medical evidence is still lacking Aocf-fpv-mreoxlg supplements including probiotics are not typically evaluated [...] to decrease antibiotic-associated diarrhea and antibiotic-related infections Jjai-ojx-Tvjompx Medications for Functional Gut Disorders Based on [...] a stool softener that is safe for termite control technician usage (no risk of dependency) andthe dosage [...] (GERD) Often a combination of anti-nausea medications (oecc-qke-mcttxts or prescription) works better thanhigh doses of [...] for misuse/misinterpretation of this information Patient Resources [place] [employer] https://www.gastro.org/practice-guidance/kt-ofqwtiw-nlqkcs/ topic/qhmbmkiuv-ehlsh-oksktkou-ibs Badgut.org https://badgut.org/information-centre/c-g-hcmvjckfq-topics/ibs/ AboutIBS.org https://www.aboutibs.org/ U[employer]odate[employer]com https://www.uptodate.com/contents/aqywqaghl-egapi-rcdfacml-jsqilr-wjl-xjadlk documented in this encounter Progress Notes * [...] Denies weight loss Last colo [address] [facility] with no polyps. Current Regimen: Metamucil [...] recommendations above. The patient was located in [place] at the time of their visit. TIME SPENT WITH PATIENT Time spent reviewing records prior to this encounter on day of appointment: 2 minutes Time spent during encounter with patient including counselin minutes Time spent documenting encounter after office visit: 7 minutes Yoel Dangelo APRN [facility] [place] [address] documented in this encounter Plan of Treatment Upcoming Encounters Date Type Department Care Team (Late st Contact Info) Description 10/01/2024 10:00 AM EST Office Visit Cardiology at [address] [place] [address] Mushtaq Murphy APRN Scheduled Orders Name Type [...] type documented in this encounter Care Teams Senior Research Analyst Relationship Specialty Start Date End Date Yoel Artis APRN [address] [place] [address] PCP - General Internal Medicine 11/18/22 07/29/24 documented as of this encounter
--- OUTSIDE RECORDS SUMMARY | 2024-08-27 10:12 | XMS_ITS | Encounter Summary ---
[place] [address] Care Team Providers Care Printer Apprentice Name Role Phone Anibal Mtz MD Primary Care Provider [phone] Encounter Details Date Type Department Care Team (Late st Contact Info) Description 01/18/2019 3:00 PM EDT Interpretation Only Cardiology at [address] [phone] Alberto Powell Jr., MD [address] [place] [address] Dizziness Social History Tobacco Use Types Packs/Day [...] AM EST Office Visit Cardiology at [address] [address] Mushtaq Murphy APRN documented as of this [...] giddiness documented in this encounter Care Teams Printer Apprentice Relationship Specialty Start Date End Date Anibal Mtz MD [address] [place] [address] PCP - General Family Medicine 01/17/19 11/17/22 documented as of this encounter
--- OUTSIDE RECORDS SUMMARY | 2024-08-27 10:12 | XMS_ITS | Encounter Summary ---
Author Organization [facility] [place] [address] Care Team Providers Care Deputy Probation Officer Name Role Phone Unknown Primary Care Provider Unavailabl e Encounter Details Date Type Department Care Team (Late st Contact Info) Description 12/03/2018 Interpretation Only [address] [phone] Ac Albrecht PA [address] [place] [address] [place] [address] Social History Tobacco Use Types Packs/Day Years [...] AM EST Office Visit Cardiology at [address] [phone] Mushtaq Murphy APRN documented as of this [...] below. ? Electronically signed by: Darvin Noyola [facility] ([phone]), at 12/03/2018 1:33 PM Narrative 12/03/2018 1:38 [...] number below. Electronically signed by: Darvin Noyola [facility]([phone]), at 12/03/2018 1:33 PM Ac SERRANO IMG DX ORDERABLES documented in this encounter Visit Diagnoses Not on filedocumented in this encounter Care Teams Deputy Probation Officer Relationship Specialty Start Date End Date Unknown None PCP - General 08/04/10 01/16/19 documented as of this encounter
--- OUTSIDE RECORDS SUMMARY | 2024-08-27 10:12 | XMS_ITS | Encounter Summary ---
Author Organization [facility] [place] [address] Care Team Providers Care Manager Quality Name Role Phone Yoel Artis APRN Primary Care Provider Reason for Referral * Consultation (Routine) - Closed Specialty Diagnoses / Procedures Referred By Theodore muro Referred To Contact Gastroenterology Diagnoses Anal spasm motility- anal spasms Yoel Artis APRN [address] [place] [address] [facility] [address] [place] [phone] Referral ID Status Reason Start Date Expiration Date V isits Requested Visits Authorized [id number] Closed Consult, Test & Treat PCP Updated and/or Approved 11/18/2022 11/18/2023 6 6 Encounter Details Date Type Department Care Team (Late st Contact Info) Description 11/18/2022 Transcribe Orders eDH Incoming Referrals [phone] Yoel Artis APRN [address] [place] [address] Anal spasm Social History Tobacco [...] AM EST Office Visit Cardiology at [address] [phone] Mushtaq Murphy APRN Scheduled Referrals Name Type Priority Associated Diagnoses Order Schedule Referral to Gastroenterology Outpatient Referral Routine Anal spasm Ordered: 11/18/2022 documented as of this encounter Visit Diagnoses Diagnosis Anal spasm documented in this encounter Care Teams Manager Quality Relationship Specialty Start Date End Date Yoel Artis APRN [address] [place] [address] PCP - General Internal Medicine 11/18/22 07/29/24 documented as of this encounter
--- OUTSIDE RECORDS SUMMARY | 2024-08-27 10:12 | XMS_ITS | Encounter Summary ---
Author Organization [facility] [place] [address] Care Team Providers Care Dog Or Horse Racing Official Name Role Phone Yoel Artis APRN Primary Care Provider [phone] Reason for Referral * Consultation (Routine) - Closed Specialty Diagnoses / Procedures Referred By Theodore muro Referred To Contact Gastroenterology Diagnoses Anal spasm anal spasm Yoel Artis APRN [address] [place] [address] [facility] [address] [place] [address] Referral ID Status Reason Start Date Expiration Date V isits Requested Visits Authorized [id number] Closed Consult, Test & Treat PCP Updated and/or Approved 05/26/2023 05/25/2024 6 6 Encounter Details Date Type Department Care Team (Late st Contact Info) Description 05/26/2023 Transcribe Orders eDH Incoming Referrals [phone] Yoel Artis APRN [address] [place] [address] Anal spasm Social History Tobacco [...] 10:00 AM EST Office Visit Cardiology at [address] [phone] Mushtaq Murphy APRN Scheduled Referrals Name Type Priority Associated Diagnoses Order Schedule Referral to Gastroenterology Outpatient Referral Routine Anal spasm Ordered: 05/26/2023 documented as of this encounter Visit Diagnoses Diagnosis Anal spasm documented in this encounter Care Teams Dog Or Horse Racing Official Relationship Specialty Start Date End Date Yoel Artis APRN [address] [place] [address] PCP - General Internal Medicine 11/18/22 07/29/24 documented as of this encounter
--- NOTE | 2024-08-29 10:15 | RT.EKG_ITS ---
APPROVED REPORT Exam: Resting ECG Reason for Exam: increased HR Patient Location: O HR:60 bpm ECG Measurements Heart Rate 60 AXIS MI 161 P 74 QRSd 99 QRS -47 QT 443 T 164 QTc 443 Conclusion Sinus rhythm...normal P axis, V-rate 50- 99 Consider inferior infarct...Q >35mS in II III aVF Abnormal lateral Q waves...Q >35mS, V5 V6 I aVL Probable anteroseptal infarct, recent...Q, ST>0.15mV, T neg, V1-V2 Abnormal T, consider ischemia, lateral leads...T <-0.20mV, I aVL V5 V6
--- OUTSIDE RECORDS SUMMARY | 2024-08-29 10:28 | XMS_ITS | Clinical Summary ---
Author Organization [facility] Address [facility] [place] [address] Care Team Providers Care Circuit Rider Name Role Phone Alexia Mtz COUNTER WEIGHER Primary Care Provider [phone] Allergies No known active allergies Medications Medication [...] Description 07/31/2024 4:45 PM EST Anesthesia [place] [address] Venkatesh Mauricio MD 07/31/2024 4:30 PM EST - 07/31/2024 5:30 PM EST [place] [address] Maldonado Luis MD CARDIAC CATHETERIZATION 07/29/2024 6:32 PM EST - 07/29/2024 11:59 PM EST Hospital Encounter [facility] at [address] [phone] Arvin Becerra MD Discharge Disposition: Home 07/29/2024 12:00 PM EST - 07/29/2024 12:54 PM EST [place] [address] Vahe Marvin MD CARDIAC CATHETERIZATION 07/29/2024 11:45 AM EST - 08/04/2024 5:00 PM EST Hospital [place] [address] Vahe Marvin MD Dadekian, Gregory A, MD Welch, Terrence D, MD Vinod, Poornima, MD Kostojchin, Anastas, MD Kussaga, Frank M, MD ST elevation myocardial infarction involving left anterior descending (LAD) coronary artery; HFrEF (heart failure with reduced ejection fraction) Discharge Disposition: Home 07/29/2024 Orders [place] [address] Susannah Watts PA 07/29/2024 Interpretation Only [address] [phone] Deondre Ferrera MD 07/29/2024 [place] [address] Ivan Hernandez MD 07/29/2024 External [place] [address] 07/28/2024 Interpretation Only [address] [address] Quinten Coffey MD 06/25/2024 Lab [place] [address] Aubrey Cali MD Pyuria from [...] e alcohol) [facility] Utilities Answer Date Recorded In the past 12 months has th e [place], gas, oil, or water [employer] threatened to shut off services in your [...] any time in the past 12 [facility] were you homeless or living in a long term (including now)? No 07/30/2024 [facility] Inpatient Questions Answer Date Recorded Does Anyone [...] AM EST Office Visit Cardiology at [address] [phone] Mushtaq Murphy, FREDRICK Health Maintenance Due Date [...] ORDERABLE S Performing Organization Address City/[facility] [address]/ZIP Co de Phone Number [facility] [place] [address] * Magnesium (08/04/2024 6:08 AM EST) Only the most recent of8 resultswithin the time period is included. Magnesium 0.85 0.69 - 1.07 mMol/L 08/04/2024 7:07 AM [facility] Blood VENOUS BLOOD SPECIMEN / Unknown Venipuncture / Unknown 08/04/2024 6:08 AM EST 08/04/2024 6:19 AM EST Bridgette Stauffer MD CHEMISTRY ORDERABLES Performing Organization Address [facility] Co de Phone Number [facility] [place] [address] * Basic Metabolic Panel (08/04/2024 6:08 AM [...] - 15 mMol/L 08/04/2024 7:07 AM EST [facility] Calcium 8.5 8.5 - 10.5 mg/dL 08/04/2024 7:07 AM EST [facility] Est Glomerular Filtration Rate - Male 74 mL/min/1. 73 m?? 08/04/2024 7:07 AM EST [facility] Comment: This patient's estimated [...] CHEMISTRY ORDERABLES Performing Organization Address City/[facility] [address]/ZIP Co de Phone Number [facility] [place] [address] * POC, GLUCOSE (08/02/2024 7:47 AM EST) Only the most recent of16 resultswithin the time period is included. [facility] Signature Glucometer, POC 89 65 - 199 mg/dL 08/02/2024 7:47 AM EST [facility] Comment:Supplemental ranges: <140 mg/dL before meals <180 mg/dL all other times of the day. Blood CAPILLARY BLOOD / Unknown 08/02/2024 7:47 AM EST 08/02/2024 7:47 AM EST Arnel Parker MD POINT OF CARE TEST O RDERABLES Performing Organization Address City/[facility] [address]/ZIP Co de Phone Number [facility] [place] [address] * Scan Doc: Telemetry Strips (08/02/2024 7:37 AM EST) Only the most recent of3 resultswithin the time period is included. Narrative 08/02/2024 7:37 AM EST Ordered by an unspecified provider. Scanning Provider MEDIA MGR SCAN EXT O RDR/RSLT * Potassium (08/01/2024 8:39 PM EST) Only the most recent of4 resultswithin the time period is included. Pathologist [facility] Potassium 4.0 3.5 - 5.0 mMol/L 08/01/2024 9:21 PM EST [facility] Blood VENOUS BLOOD SPECIMEN / Unknown Venipuncture / Unknown 08/01/2024 8:39 PM EST 08/01/2024 8:51 PM EST Jay Silverio MD CHEMISTRY ORDERABL ES [facility] [place] [address] * (ABNORMAL) Cooximetry, POC (08/01/2024 10:45 AM EST) Only the most recent of2 resultswithin the time period is included. pO2, Coox 32 mmHg 08/01/2024 10:48 AM EST [facility] Hemoglobin, Coox 12.9(L) 13.7 - 16.5 g/dL 08/01/2024 10:48 AM EST [facility] Oxyhemoglobin, Coox 66.7 % 08/01/2024 10:48 AM EST [facility] Carboxyhemoglo bin, Coox 1.1 % 08/01/2024 10:48 AM EST [facility] Comment: Nonsmokers: 0.5-1.5% COHB ?? Smokers: Variable ??but usually less than 10% ?? Toxic: 20-30% COHB ?? Lethal: Greater than 60% COHB Methemoglobin, Coox 0.3 <=1.5 % 08/01/2024 10:48 AM EST [facility] Blood (Mixed Venous) 08/01/2024 10:45 AM EST 08/01/2024 10:48 AM EST Arnel Parker MD POINT OF CARE TEST O RDERABLES Performing Organization Address [facility]/State/[facility] Co de Phone Number [facility] [place] [address] * CARDIAC CATHETERIZATION (07/31/2024 5:53 PM EST) Only the most recent of2 resultswithin the time period is included. Anatomical Region Laterality Modality Other Narrative 08/01/2024 12:37 PM EST ?[facility] ? Cardiac Catheterization/Intervention Report ? Patient Name: MontoyaKorey. ? Procedure Date: 07/31/2024 ? A #: [id number] ? Primary Physician: Janelle, Maldonado Muro ? Case #: [id number] ? File Name: [id number] ? Catheterization Order Number: [id number] ? [facility] ? Final Report [place], [place] ? Patient Name: ? Korey Montoya ?ID#: ?[id number] ? : ?1950 ? Procedure Date: ? [...] ? Comments: ?Impella removed from the right EMERGENCY DEPARTMENT TECHNICIAN with deployment of Perclose and ?Angioseal. [...] Note Maldonado Luis MD - 08/01/2024 [facility] Cardiac Catheterization/Intervention Report Patient Name: Korey Montoya Procedure Date: 07/31/2024 A #: [id number] Primary Physician: Maldonado Luis Case #: [id number] File Name: [id number] Catheterization Order Number: [id number] [facility] FinalReport [place], [place] Patient Name: Korey Montoya ID#:[id number] :1950 Procedure Date: July 31, 2024 Case [...] was designated as ASA Class IV. The [facility] clinical frailtyscale is 4: Vulnerable. [...] procedures. Comments: Impella removed from the right EMERGENCY DEPARTMENT TECHNICIAN with deployment of Perclose and Angioseal. [...] - 1.33 mmol/L 07/31/2024 8:30 AM EST [facility] Glucose, Arterial 86 65 - 199 mg/dL 07/31/2024 8:30 AM EST [facility] Comment:Glucose Concentratio n >=200 mg/dL plus symptoms is consistent with Diabetes Mellitus. Blood ARTERIAL BLOOD / Unknown 07/31/2024 8:29 AM EST 07/31/2024 8:30 AM EST Arnel Parker MD POINT OF CARE TEST O RDERABLES [facility] [place] [address] * (ABNORMAL) Hepatic Function Panel (07/31/2024 1:08 AM EST) Albumin 3.1(L) 3.2 - 5.2 g/dL 07/31/2024 1:46 AM EST [facility] Aspartate Aminotransferase 192(H) <=39 [...] - 0.3 mg/dL 07/31/2024 1:46 AM EST [facility] Protein, Total 5.0(L) 6.1 - 8.0 g/dL 07/31/2024 1:46 AM [facility] Blood VENOUS BLOOD SPECIMEN / Unknown Venipuncture / Unknown 07/31/2024 1:08 AM EST 07/31/2024 1:18 AM EST Arnel Parker MD CHEMISTRY ORDERABLES Performing Organization Address City/[facility]/ZIP Co de Phone Number [facility] [place] [address] * (ABNORMAL) Phosphorus (07/30/2024 3:08 PM EST) Only the most recent of3 resultswithin the time period is included. Phosphorus 2.1(L) 2.5 - 4.5 mg/dL 07/30/2024 3:58 PM EST [facility] Blood VENOUS BLOOD SPECIMEN / Unknown Venipuncture / Unknown 07/30/2024 3:08 PM EST 07/30/2024 3:12 PM EST Jay Silverio MD CHEMISTRY ORDERABL ES Performing Organization Address City/[facility]/ZIP Co de Phone Number [facility] [place] [address] * ECHO LMTD W CONTRAST W LMTD SPEC DOPP COLOR DOPP (07/30/2024 11:42 AM EST) Anatomical Region Laterality Modality Cardiac Other 07/30/2024 10:2 2 AM EST Narrative 07/30/2024 12:34 PM EST [address] [place] [address] ? Echocardiogram Report Name: KOREY MONTOYA ? Study Date: 07/30/2024 10:22 AMBP: 124/66 mmHg : 1950 ? Height: 168 cm ? Account: [id number] Age: 74 yrs ? Weight: 65 kg Gender: Male ?BSA: 1.7 m2 Ordering Physician: Jay Silverio MD Referring Physician: DEONDRE FERRERA Performed By: OEMRO Millan Reason For Study: ST elevation myocardial infarction involving left anterior descending (LAD) coronary artery Interpreting Fellow: Ivan Hernandez. Exam Location: [facility]. Interpretation Summary Left ventricle is severely dilated. [...] Compared to the overnight study by the sfdc consultant fellow the impella position is stable. 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 Procedure Limited - 78359. Image enhancement Definity was used for both [...] Note Kathleen Banda MD - 07/30/2024 [address] [place] [address] Echocardiogram Report Name: KOREY MONTOYA Study Date: 410:22 AMBP: 124/66 mmHg : 1950 Height: 168 cm Account: [id number] Age: 74 yrs Weight: 65 kg Gender: Male BSA: 1.7 m2 Ordering Physician: Jay Silverio MD Referring Physician: DEONDRE FERRERA Performed By: OMERO Millan Reason For Study: ST elevation myocardial infarction involving leftanterior descending (LAD) coronary artery Interpreting Fellow: Ivan Hernandez. Exam Location: [facility]. Interpretation Summary Left ventricle is severely dilated. [...] Compared to the overnight study by the sfdc consultant fellow the impella positionis stable. The global left ventricular systolic function has improvedpredominantly via recruitment outside the LAD territory which remains akinetic. Procedure Limited - 64466. Image enhancement Definity was used for both [...] 8,651(H) <=22 ng/L 07/30/2024 9:06 AM EST [facility] Comment: This patient's troponin [...] troponin value can be found in the [facility] Laboratory Test Catalog Troponin - [email or web address] Reference: Fourth [place] Definition of Myocardial Infarction. Journal of the [place] College [employer] 2018;72:3842-7304 Blood VENOUS BLOOD SPECIMEN / Unknown Venipuncture / Unknown 07/30/2024 8:09 AM EST 07/30/2024 8:26 AM EST Jay Silverio MD CHEMISTRY ORDERABL ES Performing Organization Address City/State/[facility] Co de Phone Number [facility] [place] [address] * Echocardiogram Transthoracic (07/30/2024 1:41 AM EST) Anatomical Region Laterality Modality Cardiac Other 07/30/2024 1:41 AM EST Narrative 07/30/2024 8:23 AM EST [address] [place] [address] ? Echocardiogram Report Name: KOREY MONTOYA ? Study Date: 07/30/2024 01:41 AM : 1950 ? Height: 168 cm Age: 74 yrs ? Weight: 5.9 kg Gender: Male ?BSA: 0.63 m2 Performed By: Beatris Ching MD Reason For Study: STEMI, VT History: ASCVD, HTN, HLD Interpreting Fellow: Beatris Ching. Interpretation Summary This is a limited study performed by a fellow sfdc consultant to evaluate for cardiogenic shock with [...] study available for comparison. Procedure Limited - 88980. Suboptimal quality. There is sinus bradycardia. Left [...] Note Kathleen Banda MD - 07/30/2024 1 [place] [address] Echocardiogram Report Name: KOREY MONTOYA Study Date: 07/30/2024 01:41AM : 1950 Height: 168 cm Age: 74 yrs Weight: 5.9 kg Gender: Male BSA: 0.63 m2 Performed By: Beatris Ching MD Reason For Study: STEMI, VT History: ASCVD, HTN, HLD Interpreting Fellow: Beatris Ching. Interpretation Summary This is a limited study performed by a fellow sfdc consultant to evaluate forcardiogenic shock with impella [...] study available for comparison. Procedure Limited - 40478. Suboptimal quality. There is sinus bradycardia. Left [...] * ABORH RECHECK (07/29/2024 6:43 PM EST) [facility] ABORH Recheck AB POSITIVE 07/29/2024 10:13 PM EST [facility] Blood VENOUS BLOOD SPECIMEN / Unknown Venipuncture / Unknown 07/29/2024 6:43 PM EST 07/29/2024 7:15 PM EST Jay Silverio MD BLOOD BANK LAB ORD ERABLES Performing Organization Address City/[facility] [address]/ZIP Co de Phone Number [facility] [place] [address] * Type and screen ([facility]/JONG/MAGALIE) (07/29/2024 5:56 PM EST) [facility] ABORH Type AB POSITIVE 07/29/2024 9:44 PM EST [facility] PATIENT HISTORY Not Found 07/29/2024 9:44 PM EST [facility] Expires at [id number] on: 08/01/2024 07/29/2024 9:44 PM EST [facility] ANTIBODY SCREEN AUTOMATED Negative 07/29/2024 9:44 PM EST [facility] T&S only valid at [facility] 07/29/2024 9:44 PM EST [facility] Blood VENOUS BLOOD SPECIMEN / Unknown Venipuncture / Unknown 07/29/2024 5:56 PM EST 07/29/2024 6:07 PM EST Narrative [facility] - 07/29/2024 9:44 PM EST This Type and Screen result is only valid at the [facility] Jay Silverio MD BLOOD BANK LAB ORD ERABLES Performing Organization Address City/[facility] [address]/ZIP Co de Phone Number [facility] [place] [address] * EKG 12 Lead (07/29/2024 4:21 PM EST) Only the most recent of2 resultswithin the time period is included. Pathologist [facility] Ventricular rate 72 BPM MUSE SYSTEM Atrial Rate 72 BPM MUSE SYSTEM P-R Interval 168 ms MUSE SYSTEM QRS Duration 82 ms MUSE SYSTEM Q-T Interval 392 ms MUSE SYSTEM QTC Calculated (Bezet) 429 ms MUSE SYSTEM Calculated P [place] 71 degrees MUSE SYSTEM Calculated R [place] 77 degrees MUSE SYSTEM Calculated T [place] 28 degrees MUSE SYSTEM INTERPRETATION Sinus rhythm with Premature supraventricular complexes and Occasional Premature ventricular complexes Low voltage QRS 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) Lateral injury pattern ACUTE AL / STEMI Abnormal ECG When compared with ECG of 29-JUL-2024 13:43, (unconfirmed) Serial changes of evolving Anteroseptal infarct Present Confirmed by MD Marcus, Roverto (1963) on 07/31/2024 5:30:06 AM MUSE SYSTEM 07/29/2024 4:21 PM EST 07/31/2024 5:30 AM EST Jay Silverio MD ECG ORDERABLES Performing Organization Address City/[facility] [address]/ZIP Co de Phone Number MUSE SYSTEM * Blood culture (07/29/2024 4:08 PM EST) Only the most recent of2 resultswithin the time period is included. Blood Culture No growth at 120 hours 08/03/2024 5:01 PM EST [facility] Blood VENOUS BLOOD SPECIMEN / Unknown Venipuncture / Unknown 07/29/2024 4:08 PM EST 07/29/2024 4:15 PM EST Jay Silverio MD MICROBIOLOGY - BLO OD ORDERABLES Performing Organization Address City/[facility] [address]/[facility] Co de Phone Number [facility] [place] [address] * XR Chest One View (07/29/2024 2:30 PM EST) Only the most recent of3 resultswithin the time period is included. WORKSTATION ID [id number] DH RAD Anatomical Region Laterality Modality Chest [...] who have questions please contact the health health care law specialist that requested your imaging first. ? Electronically signed by: Chris Candelaria MD, [facility] ([phone]), at 07/29/2024 3:21 PM Narrative 07/29/2024 3:21 [...] patients who have questions please contactthe health health care law specialist that requested your imaging first. Electronically signed by: Chris Candelaria MD, [facility]([phone]), at 07/29/2024 3:21 PM Vahe Marvin MD IMG DX ORDERABLES * TSH [place] (07/29/2024 2:03 PM EST) Thyroid Stimulating Hormone 0.70 0.27 - 4.20 mcIU/mL 07/29/2024 2:52 PM EST [facility] Blood VENOUS BLOOD SPECIMEN / Unknown Venipuncture / Unknown 07/29/2024 2:03 PM EST 07/29/2024 2:14 PM EST Vahe Marvin MD CHEMISTRY ORDERABLES [facility] [place] [address] * CRP, acute inflammation (07/29/2024 2:03 PM EST) C-Reactive Protein <3.0 <=4.9 mg/L 07/29/2024 2:52 PM EST [facility] Blood VENOUS BLOOD SPECIMEN / Unknown Venipuncture / Unknown 07/29/2024 2:03 PM EST 07/29/2024 2:14 PM EST Vahe Marvin MD CHEMISTRY ORDERABLES Performing Organization Address City/[facility] [address]/ZIP Co de Phone Number [facility] [place] [address] * (ABNORMAL) APTT (07/29/2024 2:03 PM EST) Partial Thromboplastin Time >160(HHH) 25 - 37 sec 07/29/2024 2:56 PM EST [facility] Blood VENOUS BLOOD SPECIMEN / Unknown Venipuncture / Unknown 07/29/2024 2:03 PM EST 07/29/2024 2:13 PM EST Vahe Marvin MD HEMATOLOGY ORDERABLE S [facility] [place] [address] * (ABNORMAL) Prothrombin Time (07/29/2024 2:03 PM EST) Pathologist [facility] Prothrombin Time 14.2(H) 9.4 - 12.5 sec 07/29/2024 2:56 PM EST [facility] International Normalization Ratio 1.3 <=4.9 07/29/2024 2:56 PM EST [facility] Comment: An INR < [...] EST Vahe Marvin MD HEMATOLOGY ORDERABLE S [facility] [place] [address] * Hemoglobin A1c (07/29/2024 2:03 PM EST) [facility] Hemoglobin A1c 5.3 4.3 - 5.6 % 07/29/2024 2:41 PM EST [facility] Comment: Per ADA guidelines, [...] red blood cell turnover may not be metals sales representative of glycemic control. Reference Interval: 4.3 - 5.6% 5.7 - 6.4%: Consistent with prediabetes >=6.5%: Consistent with diagnosis of diabetes mellitus Estimated Average Glucose 07/29/2024 2:41 PM EST [facility] Comment:Estimated Average Gl ucose [...] into estimated average glucose values. ??Diabetes Care 2008:31(8):2877-4339. Additional resources are available on the ADA website (diabetes.org). Vahe Marvin MD CHEMISTRY ORDERABLES [facility] [place] [address] * Lipid Panel (Reflex Direct LDL) (07/29/2024 2:03 PM EST) Pathologist [facility] Cholesterol, Total 133 mg/dL 07/29/2024 2:52 [...] Cholesterol 75 mg/dL 07/29/2024 2:52 PM EST [facility] Comment: Desirable: <130 mg/dL [...] ACC/AHA Guidelines (most recently Rolf et al. [facility] 06/15/22): * For individuals with atherosclerotic cardiovascular [...] artery disease) Vahe Marvin MD CHEMISTRY ORDERABLES [facility] [place] [address] * (ABNORMAL) Comprehensive metabolic panel (07/29/2024 2:03 PM EST) Glucose 243(H) 65 - 199 mg/dL 07/29/2024 3:11 PM EST [facility] Comment:Glucose Concentratio n >=200 mg/dL plus symptoms is consistent with Diabetes Mellitus. Blood Urea Nitrogen 13 10 - 20 mg/dL 07/29/2024 3:11 PM EST [facility] Creatinine 0.88 0.80 - 1.50 mg/dL 07/29/2024 3:11 PM EST [facility] Sodium 138 135 - 145 mMol/L 07/29/2024 3:11 PM EST [facility] Potassium 3.6 3.5 - 5.0 mMol/L 07/29/2024 3:11 PM EST [facility] Chloride 104 98 - 107 mMol/L 07/29/2024 3:11 PM EST [facility] Carbon Dioxide 19(L) 22 - 31 mMol/L 07/29/2024 3:11 PM EST [facility] Anion Gap 15 5 - 15 mMol/L 07/29/2024 3:11 PM EST [facility] Calcium 8.0(L) 8.5 - [...] PM EST Vahe Marvin MD CHEMISTRY ORDERABLES [facility] [place] [address] * (ABNORMAL) Blood Gas, Venous POC (07/29/2024 [...] MD POINT OF CARE TEST O RDERABLES [facility] [place] [address] * (ABNORMAL) BLOOD GAS, POC (07/29/2024 12:46 [...] - 16.5 g/dL 07/30/2024 7:30 AM EST [facility] Comment:The calculation of h emoglobin from hematocrit assumes a normal MCHC. Bicarbonate, POC 19.8(L) 20.0 - 26.0 mmol/L 07/30/2024 7:30 AM EST [facility] Carbon Dioxide, POC 21(L) 22 - 31 mmol/L 07/30/2024 7:30 AM EST [facility] Blood VENOUS BLOOD SPECIMEN / Unknown 07/29/2024 12:46 PM EST 07/30/2024 7:30 AM EST Vahe Marvin MD POINT OF CARE TEST O RDERABLES Performing Organization Address [facility]/[place] [address] * External Cardiology Result (07/29/2024 10:13 AM EST) Anatomical Region Laterality Modality Other Historical Provider EXTERNAL CARDIOLO GY RESULT * Urine culture (06/25/2024 11:55 AM EDT) Urine Culture No growth 06/26/2024 12:22 PM EDT [facility] Urine URINE SPECIMEN OBTAINED BY CLEAN CATCH PROCEDURE / Unknown 06/25/2024 11:55 AM EDT 06/25/2024 5:18 PM EDT Aubrey Cali MD MICROBIOLOGY - GENER AL ORDERABLES Performing Organization Address City/[facility] [address]/ZIP Co de Phone Number [facility] [place] [address] * COLONOSCOPY (08/30/2023 10:57 AM EST) COLONOSCOPY [facility] Endoscopy Procedure Date: 08/30/2023 10:57 AM ? Patient Name: Korey Montoya ? Date of : 1950 ? Age: 73 ? Order #: [id number] ? Instrument Name: [id number] ? Procedure: ? Colonoscopy Indications: ? Rectal [...] preparation was evaluated ? using the BBPS ([place] Bowel ? Preparation Scale) with scores of: [...] 08/30/2023 10:5 7 AM EST Yoel Artis COUNTER WEIGHER GENERAL SURGICAL ORD ERABLES PROVATION from Last 3 Months or Most Recently Relevant to Health Maintenance Advance Directives * Attempt Cardiopulmonary Resuscitation - Inpatient (Latest Code Status on File) Date Activated Date Inactivated Comments 07/29/2024 2:01 PM 08/04/2024 7:34 PM Question Answer Comments Code Status decision made by: Patient Content of discussion: pre-arrest limitations Care Teams Circuit Rider Relationship Specialty Start Date End Date Alexia Mtz APRN [address] [place] [id number] PCP - General Family Medicine 07/30/24
--- OUTSIDE RECORDS SUMMARY | 2024-08-29 10:29 | XMS_ITS | Encounter Summary ---
Author Organization Counts Include [facility] At [facility] Address [facility] [place] [address] Care Team Providers Care Hoisting Engineer Pile Driving Name Role Phone TornadoAlexia shell Shun ALCALA Primary Care Provider [phone] Reason for Referral * Consultation (Routine) - Authorized Specialty Diagnoses / Procedures Referred By Contac t Referred To Contact Cardiology Diagnoses HFrEF (heart failure with reduced ejection fraction) [facility] S/P D/C acute HFrEF Alex Small MD [facility] [place] [address] Mushtaq Murphy APRN [facility] [place] [address] Referral ID Status Reason Start Date Expiration Date Visits Requested Visits Authorized [id number] Authorized Consult, Test & Treat 08/04/2024 08/04/2025 1 1 * Consultation (Routine) - Authorized Specialty Diagnoses / Procedures Referred By Contac t Referred To Contact Cardiology Diagnoses ST elevation myocardial infarction involving left anterior descending (LAD) coronary artery Yrn Ward MD [facility] [place] [address] Cardiac Rehab, [address] [place] [address] Referral ID Status Reason Start Date Expiration Date Visits Requested Visits Authorized [id number] Authorized Consult, Test & Treat 08/04/2024 01/31/2025 36 36 Reason for Visit * Auth/Cert (Routine) Specialty Diagnoses / Procedures Referred By Contac t Referred To Contact Diagnoses STEMI (ST elevation myocardial infarction) STEMI Procedures ER IPI Vahe Marvin MD [facility] [place] [address] [facility] Referral ID Status Reason Start Date Expiration Date Visits Re quested Visits Authorized [id number] 1 1 Encounter Details Date Type Department Care Team (Latest Contact Info) Description 07/29/2024 11:45 AM EST - 08/04/2024 5:00 PM EST Hospital Encounter Cardiovascular [place] [id number] Vahe Marvin MD [facility] [place] [address] [place] [address] Jay Silverio MD [facility] [place] [address] Krystal Parker MD [facility] [place] [address] Bridgette Stauffer MD [facility] [place] [address] Yrn Ward MD [facility] [place] [address] Alex Small MD [facility] [place] [address] ST elevation myocardial infarction involving left anterior descending (LAD) coronary artery; HFrEF (heart failure with reduced ejection fraction) Discharge Disposition: Home Social History Tobacco Use Types Packs/Day Years Used Date Smoking Tobacco: Former Cigarettes Smokeless Tobacco: Never Alcohol Use Standard Drinks/Week Comments Not Currently 0 (1 standard drink = 0.6 oz pur e alcohol) [facility] Utilities Answer Date Recorded In the past [...] any time in the past 12 m [facility], were you homeless or living [...] Korey Montoya Patient Age: 74 y.o. Language: Uzbek Race: White Ethnicity: Not nor Admit date: [...] contact your inpatient physician through the [facility] Allocations Clerk . Issues afterhours and on weekends will [...] Patient transferred via air ambulance to [facility] on 07/29 for LHC and LOW to [...] Was transferred via air ambulance to [facility] for further management and LHC demonstrated 100% occlusion. No significant RCA, LMCA, or LCX disease. LOW placed in LAD with some residual distal disease meriting placement of overlapping distal stent. TTE showed apical akinesis and inferior hypokinesis with EF 20%. RHC showed elevated filling pressures. Impella placed and P-level 6 at time of transfer to [facility]. CI initially 1.97, improved to 2.2 [...] the next year. Access was via right [employer] OPERATOR and this sitewas clean, dry and [...] for Chest pain. Replaces: nitroGLYcerin 400 mcg/spray [place], Non-Aerosol 0.4 mg Quantity: 90 tablet Refills: [...] Refills: 0 STOPPED Medications nitroGLYcerin 400 mcg/spray [place], Non-Aerosol Commonly known as: NITROLINGUAL Replaced by: [...] of one year. After this time, your emt basic will determine if you need to continue [...] away. Stay on the phone. The emergency metal buggy operator will tell you what to do. [...] appointments: During 8am-5pm Tuesday through Tuesday call [phone] to speak with a nurse in the cardiology clinic All other times call [phone] and ask to speak to the showroom consultant qualifications examiner. Follow up Appointments: PCP Alexia Mtz, DRAW FURNACE TENDER [phone]. Please call to establish a follow up appointment within 1-2 weeks of discharge. Cardiology. Referral to heart failure has been sent. General Instructions None Future Appointments and Orders Future Orders Complete By Expires Referral to Cardiac Rehab [[id number] Custom] As directed Process Instructions: If no progress note charted, please enter Clinical details in comments. Scheduling Instructions: Questions: My question or request is: STEMI, PCI- cardiac rehab at [facility] Referral to Cardiology [REF12 Custom] As [...] of one year. After this time, your emt basic will determine if you need to continue [...] away. Stay on the phone. The emergency metal buggy operator will tell you what to do. [...] appointments: During 8am-5pm Tuesday through Tuesday call [phone] to speak with a nurse in the cardiology clinic All other times call [phone] and ask to speak to the showroom consultant qualifications examiner. Follow up Appointments: PCP Alexia tMz, DRAW FURNACE TENDER [phone]. Please call to establish a follow up [...] Patient transferred via air ambulance to [facility] on 07/29 for LHC and LOW to [facility] for 100% occlusion Social History: Pt lives with his in a 1 level home with 2 NAOMI. 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 [...] Total time: 35 (tef) minutes Time IN/OUT: 8534-4953 ZAIDA DUBOSE PT Pager: [phone] Physical Therapy Inpatient Rehabilitation Department * Yrn Ward MD - 08/03/2024 10:38 AM EST CV HOSPITALIST 2 - [facility] DAILY PROGRESS NOTE Page [phone] to reach a provider 04/04 Admit Date: [...] or before 29-JUL-2024) Lateral injury pattern ACUTE MD / STEMI Abnormal ECG When compared with [...] Compared to the overnight study by the qualifications examiner fellow the impella position is stable. 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 [facility] 07/29/24 Conclusions: * One vessel coronary artery disease (LAD) * Mild pulmonary hypertension * Elevated pulmonary capillary wedge pressure * Successful stent insertion of the proximal LAD lesion * See Dual Antiplatelet (DAPT) Recommendations above * Successful impella placement for cardiogenic shock. Telemetry: I have personally reviewed and interpreted the telemetry from the last 24 hours. [facility] Assessment: ASSESSMENT: Korey Montoya is a 74 y.o. male w/ PMH of hypertension, HLD, and BPH who presents for chief concern of chest pain after being found to have ST elevations on EKG. Patient transferred via air ambulance to [facility] on 07/29 for LHC and LOW to [...] be determined OT: PCP Alexia Mtz, FREDRICK [phone] * Zaida Dubose, PT - 08/02/2024 2:08 PM EST Physical Therapy Evaluation Patient profile: Korey Montoya is a 74 y.o. male w/ PMH of hypertension, HLD, and BPH who presents for chief concern of chest pain after being found to have ST elevations on EKG. Patient transferred via air ambulance to [facility] on 07/29 for LHC and LOW to LAD for 100% occlusion Social History: Pt lives with his in a 1 level home with 2 NAOMI. 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 [...] Total time: 37 (eval) minutes Time IN/OUT: 1116-8108 ZAIDA DUBOSE PT Pager: [phone] Physical Therapy Inpatient Rehabilitation Department * Gagan [...] Patient transferred via air ambulance to [facility] on 07/29 for LHC and LOW to LAD for 100% occlusion. TTE showed apical akinesis and inferior hypokinesis with EF 20%. RHC showed elevated filling pressures. Impella placed and P-level 6 at time of transfer to [facility]. CI initially 1.97, improved to 2.2 [...] PCP: Alexia Mtz APRN PCP phone number: [phone] Date of Admission: 07/29/2024 ( Hospital Day 4 days ) Attending:Bridgette Stauffer MD ID: Korey Montoya is a 74 y.o. male w/ PMH of hypertension, HLD, and BPH on Hospital Day4 for chief concern of chest pain after being found to have ST elevations on EKG. Patient transferred via air ambulance to [facility] on 07/29 for LHC and LOW to [...] 07/29/24 1621 PHART 7.48* 7.44 7.38 7.37 RMT3BIQ 29* 29* 34* 36 PO2ART 71* 109* 141* 71* ALG2WJW 20.6 19.4* 19.5* 20.4 VBG (Venous Blood Gas) Recent Labs 07/29/24 1401 PHVEN 7.30* PO2VEN 39 IDD4IBH 20.1* Mixed Venous Sat No results for input(s): M4PKMN4 in the last 168 hours. Objective: Vitals [...] 07/29/24 1621 PHART 7.48* 7.44 7.38 7.37 PLR4YLM 29* 29* 34* 36 PO2ART 71* 109* 141* 71* SGH1ZNE 20.6 19.4* 19.5* 20.4 VBG (Venous Blood Gas) Recent Labs 07/29/24 1401 PHVEN 7.30* PO2VEN 39 JIT1DBM 20.1* Mixed Venous Sat No results for input(s): O1PPDD8 in the last 168 hours. Microbiology: Microbiology Results (Last 30 days) Procedure Component Value Units Date/Time Blood culture [[id number]] Collected: 07/29/241607 Lab Status: Preliminary result Specimen: Blood, Venous Updated: 08/01/241700 Blood Culture No growth at 72 hours Blood culture [[id number]] Collected: 07/29/241607 Lab Status: Preliminary result Specimen: Blood, Venous Updated: 08/01/241700 Blood Culture No growth at 72 hours Imaging: Results for orders placed or performed during the hospital encounter of 07/29/24 XR Chest One View (Exam End: 07/29/2024 2:30 PM) Result Value WORKSTATION ID [id number] Impression 1. No pulmonary edema. 2. No pleural effusion. 3. No pneumothorax. Thank you for letting us participate in the care of this patient. If you are a health care provider and have any questions regarding this report, please contact the number below. For patients who have questions please contact the health animal care attendant that requested your imaging first. ( 07/30/24) [...] Compared to the overnight study by the qualifications examiner fellow the impella position is stable. The [...] Patient transferred via air ambulance to [facility] on 07/29 for LHC and LOW to [...] Susannah Ornelas MD Internal Medicine, PGY-1 Cardiology, [facility] 08/02/24 12:45 PM CARDIOLOGY STAFF NOTE [...] today). Transfer to floor. Krystal Parker, MD, [facility] Staff Hand Scudder shrinker * Gagan Catherine MD - 08/01/2024 11:12 [...] Patient transferred via air ambulance to [facility] on 07/29 for LHC and LOW to [...] PCP: Alexia Mtz APRN PCP phone number: [phone] Date of Admission: 07/29/2024 ( Hospital Day 3 days ) Attending:Krystal Parker MD ID: Korey Montoya is a 74 y.o. male w/ PMH of hypertension, HLD, and BPH on Hospital Day3 for chief concern of chest pain after being found to have ST elevations on EKG. Patient transferred via air ambulance to [facility] on 07/29 for LHC and LOW to [...] 07/29/24 1621 PHART 7.48* 7.44 7.38 7.37 QUY6MKK 29* 29* 34* 36 PO2ART 71* 109* 141* 71* CXD1SXN 20.6 19.4* 19.5* 20.4 VBG (Venous Blood Gas) Recent Labs 07/29/24 1401 PHVEN 7.30* PO2VEN 39 VVJ6KWW 20.1* Mixed Venous Sat No results for input(s): R8UCYB1 in the last 168 hours. PA Catheter [...] 07/29/24 1621 PHART 7.48* 7.44 7.38 7.37 HHK7LPG 29* 29* 34* 36 PO2ART 71* 109* 141* 71* QWZ3PKT 20.6 19.4* 19.5* 20.4 VBG (Venous Blood Gas) Recent Labs 07/29/24 1401 PHVEN 7.30* PO2VEN 39 YYD7KCU 20.1* Mixed Venous Sat No results for input(s): W4UWVM8 in the last 168 hours. Microbiology: Microbiology Results (Last 30 days) Procedure Component Value Units Date/Time Blood culture [[id number]] Collected: 07/29/241607 Lab Status: Preliminary result Specimen: Blood, Venous Updated: 07/31/241700 Blood Culture No growth at 48 hours Blood culture [[id number]] Collected: 07/29/241607 Lab Status: Preliminary result Specimen: Blood, Venous Updated: 07/31/241700 Blood Culture No growth at 48 hours Imaging: Results for orders placed or performed during the hospital encounter of 07/29/24 XR Chest One View (Exam End: 07/29/2024 2:30 PM) Result Value WORKSTATION ID [id number] Impression 1. No pulmonary edema. 2. No pleural effusion. 3. No pneumothorax. Thank you for letting us participate in the care of this patient. If you are a health care provider and have any questions regarding this report, please contact the number below. For patients who have questions please contact the health animal care attendant that requested your imaging first. ( 07/30/24) [...] Compared to the overnight study by the qualifications examiner fellow the impella position is stable. The [...] Patient transferred via air ambulance to [facility] on 07/29 for LHC and LOW to [...] Susannah Ornelas MD Internal Medicine, PGY-1 Cardiology, [facility] 08/01/24 7:13 AM CARDIOLOGY STAFF NOTE [...] with him; questions answered. Krystal Parker MD, [facility] Staff Hand Scudder shrinker * Krystal Parker MD - 07/31/2024 1:06 [...] ILL WITH THESE DIAGNOSES BEING MANAGED BY [facility] TEAM: # Anterior STEMI, late-presenting # [...] Patient transferred via air ambulance to [facility] on 07/29 for LHC and LOW to LAD for 100% occlusion. TTE showed apical akinesis and inferior hypokinesis with EF 20%. RHC showed elevated filling pressures. Impella placed and P-level 6 at time of transfer to [facility]. CI initially 1.97, improved to 2.2 After impella. Received about 3 L of fluid during procedural course. Patient initially required norepinephrine 30, epinephrine 10, and vasopressin 0.04 for hemodynamic support, which was weaned upon arrival to [facility] to norepinephrine 20and levo 0.04 N [...] PCP: Alexia Mtz APRN PCP phone number: [phone] Date of Admission: 07/29/2024 ( Hospital Day 2 days ) Attending:Krystal Parker MD ID: Korey Montoya is a 74 y.o. male w/ PMH of hypertension, HLD, and BPH on Hospital Day2 for chief concern of chest pain after being found to have ST elevations on EKG. Patient transferred via air ambulance to [facility] on 07/29 for LHC and LOW to [...] 0057 07/29/24 1621 PHART 7.44 7.38 7.37 FON1FKV 29* 34* 36 PO2ART 109* 141* 71* BQW5PXK 19.4* 19.5* 20.4 VBG (Venous Blood Gas) Recent Labs 07/29/24 1401 PHVEN 7.30* PO2VEN 39 JCV3FWT 20.1* Mixed Venous Sat No results for input(s): V1VJEE4 in the last 168 hours. PA Catheter [...] 0057 07/29/24 1621 PHART 7.44 7.38 7.37 PDM9BLU 29* 34* 36 PO2ART 109* 141* 71* KPI3ZHK 19.4* 19.5* 20.4 VBG (Venous Blood Gas) Recent Labs 07/29/24 1401 PHVEN 7.30* PO2VEN 39 DIN2RZN 20.1* Mixed Venous Sat No results for input(s): L2JBOU2 in the last 168 hours. Microbiology: Microbiology Results (Last 30 days) Procedure Component Value Units Date/Time Blood culture [[id number]] Collected: 07/29/241607 Lab Status: Preliminary result Specimen: Blood, Venous Updated: 07/30/24 170 Blood Culture No Growth at 18-24 hrs. Blood culture [[id number]] Collected: 07/29/241607 Lab Status: Preliminary result Specimen: Blood, Venous Updated: 07/30/241700 Blood Culture No Growth at 18-24 hrs. Imaging: Results for orders placed or performed during the hospital encounter of 07/29/24 XR Chest One View (Exam End: 07/29/2024 2:30 PM) Result Value WORKSTATION ID [id number] Impression 1. No pulmonary edema. 2. No pleural effusion. 3. No pneumothorax. Thank you for letting us participate in the care of this patient. If you are a health care provider and have any questions regarding this report, please contact the number below. For patients who have questions please contact the health animal care attendant that requested your imaging first. ( 07/30/24) [...] Compared to the overnight study by the qualifications examiner fellow the impella position is stable. The [...] Patient transferred via air ambulance to [facility] on 07/29 for LHC and LOW to [...] - START protonix 40mg daily Hematology - EDISNO Infection #Leukocytosis, down trending - f/ Bcx [...] work to optimize volume status while continuing yvkmnhh-sujnud-taziahyygm therapies at this time. Obtain comprehensive TTE. [...] Patient transferred via air ambulance to [facility] on 07/29 for LHC and LOW to LAD for 100% occlusion. TTE showed apical akinesis and inferior hypokinesis with EF 20%. RHC showed elevated filling pressures. Impella placed and P-level 6 at time of transfer to [facility]. CI initially 1.97, improved to 2.2 After impella. Received about 3 L of fluid during procedural course. Patient initially required norepinephrine 30, epinephrine 10, and vasopressin 0.04 for hemodynamic support, which was weaned upon arrival to [facility] to norepinephrine 20and levo 0.04 N [...] PCP: Yoel Artis APRN PCP phone number: [phone] Date of Admission: 07/29/2024 ( Hospital Day 1 day ) Attending:Jay Silverio MD ID: Korey Montoya is a 74 y.o. male w/ PMH of hypertension, HLD, and BPH on Hospital Day1 for chief concern of chest pain after being found to have ST elevations on EKG. Patient transferred via air ambulance to [facility] on 07/29 for LHC and LOW to [...] 0057 07/29/24 1621 PHART 7.44 7.38 7.37 QEC2YOE 29* 34* 36 PO2ART 109* 141* 71* NXU6YXF 19.4* 19.5* 20.4 VBG (Venous Blood Gas) Recent Labs 07/29/24 1401 PHVEN 7.30* PO2VEN 39 ZJM2FQC 20.1* Lactate ( Last 12 hours) 1.3 >> 1.2 Mixed Venous Sat No results for input(s): K5WILG6 in the last 168 hours. PA Catheter [...] 0057 07/29/24 1621 PHART 7.44 7.38 7.37 JMA6WPP 29* 34* 36 PO2ART 109* 141* 71* LWG6PYL 19.4* 19.5* 20.4 VBG (Venous Blood Gas) Recent Labs 07/29/24 1401 PHVEN 7.30* PO2VEN 39 QIM7KDK 20.1* Mixed Venous Sat No results for input(s): A2GNRX4 in the last 168 hours. Microbiology: Microbiology Results (Last 30 days) Procedure Component Value Units Date/Time Blood culture [[id number]] Collected: 07/29/24 1608 Lab Status: In process Specimen: Blood, Venous Updated: 07/29/24 162 Blood culture [[id number]] Collected: 07/29/241607 Lab Status: In process Specimen: Blood, Venous Updated: 07/29/24 161 Imaging: Results for orders placed or performed during the hospital encounter of 07/29/24 XR Chest One View (Exam End: 07/29/2024 2:30 PM) Result Value WORKSTATION ID [id number] Impression 1. No pulmonary edema. 2. No pleural effusion. 3. No pneumothorax. Thank you for letting us participate in the care of this patient. If you are a health care provider and have any questions regarding this report, please contact the number below. For patients who have questions please contact the health animal care attendant that requested your imaging first. Medications Scheduled [...] Patient transferred via air ambulance to [facility] on 07/29 for LHC and LOW to [...] Patient transferred via air ambulance to [facility] on 07/29 for LHC and LOW to [...] Was transferred via air ambulance to [facility] for further management and [facility] demo nstrated 100% occlusion. No significant [...] performed by Brandan Mcgovern MD [facility] ENDOSCOPY Significant Family History: Family History Problem [...] mouth. Past Week nitroGLYcerin (NITROLINGUAL) 400 mcg/spray [place], Non-Aerosol 1 spray to anus for proctalgia [...] 3.5 guiding catheter and a 3.5 Fr [facility] [place] ST 20 Mhz using Manual pullback. Imaging [...] priority for the procedure was Emergent. [facility] for the procedure was [...] atmospheres. A premounted 3.00 x 22 mm Frakes [place] (LOW) was deployed with a maximum inflation [...] A premounted 3.00 x 08 mm Jeison [place] (LOW) was deployed with a maximum inflation [...] a limited study performed by a fellow qualifications examiner to evaluate for cardiogenic shock with impella [...] Compared to the overnight study by the qualifications examiner fellow the impella position is stable. The [...] Patient transferred via air ambulance to [facility] on 07/29 for LHC and LOW to [...] PCP: Yoel Artis APRN PCP phone number: [phone] Date of Admission: 07/29/2024 ( Hospital Day 0 days ) Attending:Jay Silverio MD ID: Korey Montoya is a 74 y.o. male w/ PMH of hypertension, HLD, and BPH who presents for chief concern of chest pain after being found to have ST elevations on EKG. Patient transferred via air ambulance to [facility] on 07/29 for LHC and LOW to LAD for 100% occlusion. HPI: Korey Montoya is a 74 y.o. male w/ PMH of hypertension, HLD, and BPH who presents for chief concern of chest pain after being found to have ST elevations on EKG. Patient transferred via air ambulance to [facility] on 07/29 for LHC and LOW to [...] Was transferred via air ambulance to [facility] for further management and LHC demonstrated 100% [...] performed by Brandan Mcgovern MD [facility] ENDOSCOPY Family History Family History Problem Relation [...] Blood Gas) No results for input(s): PHART, OKN3KRU, PO2ART, WXI1MYB, LACTATEVEN, MXV7IGG, PFRATIOART2 in the last 168 hours. VBG (Venous Blood Gas) Recent Labs 07/29/24 1401 PHVEN 7.30* PO2VEN 39 YZN4SGU 20.1* Mixed Venous Sat No results for input(s): S4OGGD4 in the last 168 hours. PA Catheter [...] Blood Gas) No results for input(s): PHART, GYO5QDA, PO2ART, SJJ4MLZ, LACTATEVEN, GMW9ZHN, PFRATIOART2 in the last 168 hours. VBG (Venous Blood Gas) Recent Labs 07/29/24 1401 PHVEN 7.30* PO2VEN 39 CKH5GVA 20.1* Mixed Venous Sat No results for input(s): C9KLOO6 in the last 168 hours. Microbiology: Microbiology [...] Patient transferred via air ambulance to [facility] on 07/29 for LHC. Found to have 100% occlusion of LAD for which he underwent LOW to LAD.Otherwise no other significant vessel disease. Fahad is currently hemodynamically tenuous but improving upon admission to [facility], requiring hemodynamic support with norepinephrine and vasopressin at time of admission along with mechanical support with Impella device. Reassuringly, he demonstrates decreasing pressor requirements since admission to [facility], with epinephrine completely weaned. He does [...] Bernardo Amos MD Internal Medicine, PGY-3 Cardiology, [facility] 07/29/24 3:14 PM Cardiology Attending Note [...] of Cardiovascular Medicine [facility] [employer] Wheel Rakermanager office [facility] [employer] [facility] This patient meets or has met medical [...] to the planned procedure. Hand Hygiene: The jewel inserter did perform hand hygiene prior to arterial [...] ease. Good wave form. Ivan Hernandez MD School Supervisor Associated attestation - Rolando Yeh MD - [...] Fahad was quite active prior to his MD. 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 Given parameters for home exercise. He follows a heart healthy diet and is not overweight. His lipids are wnl. Participation in an outpatient cardiac rehabilitation program at [facility] was discussed. Patient agrees to a [...] MEDICARE Payor: [facility] MANAGED MEDICARE / Plan: [facility] / Product Type: [...] of Discharge: 08/04/2024 Gaby Wong RN, CM Pager-[phone] * Initial Assessments - Char Meza OT - 08/03/2024 10:00 AM EST Occupational Therapy Evaluation Patient profile: Korey Montoya is a 74 y.o. male admitted on 07/29/2024 w/ PMH of hypertension, HLD, and BPH who presents for chief concern of chest pain after being found to have ST elevations onEKG. Patient transferred via air ambulance to [facility] on 07/29 for LHC and LOW to LAD for 100% occlusion. Past Medical History: Diagnosis Date ADHD HLD (hyperlipidemia) HTN (hypertension) Tremor Past Surgical History: Procedure Laterality Date HAND SURGERY PRO COLONOSCOPY, REMV LESN, SNARE N/A 08/30/2023 COLONOSCOPY, POLYPECTOMY, REMOVAL LESION BY SNARE (WRVU 4.57) performed by Brandan Mcgovern MD [facility] ENDOSCOPY Social History: Patient lives with his [...] evaluation only Total Minutes, Occupational Therapy: 14 ([id number] (evaluation)) 2017 OT Evaluation Code Rationale: Diagnosis [...] and measurable assessment of functional outcome. Pager: [phone] Char Meza OT 08/03/2024 Occupational Therapy Rehabilitation [...] Procedure Note: Patient Name: Korey Montoya : [id number] MR#: [id number] Case Date: 07/31/2024 Allocations Clerk: Surgeons and Role: * Maldonado Luis MD - Primary * Quinten Charles PA - Physician Model Maker Plaster Preoperative diagnosis: shock, impella Postoperative diagnosis: * same * Procedure(s) performed: Impella removal form right [employer] OPERATOR Access: Right [employer] OPERATOR A time-out was conducted prior to [...] surrogate would be surrogate decision maker per [place] decision making law. (Only good for 180 days) Any patient receiving care in [place] must abide by [place] law. The hierarchy for surrogate decision making [...] (i) The agent with financial power of county attorney or a conservator appointed in accordance [...] homeless or living in a fpc (including now)?: No In the past 12 months has the [employer], gas, oil, or water Perfect threatened to shut off services in your [...] it) Home Address confirmed as: Mailing Address: [facility] [address] [place] [address] Physical Address: [address] [place], [place] Social & Family Supports: All names [...] points: Addiction likely Health/Prescription Coverage: Primary Insurance: [facility] [employer] MEDICARE Payor: [facility] [employer] MEDICARE / Plan: [facility] [employer] MEDICARE COMPLETE / Product Type: *No Product type* / Secondary Insurance: N/A ; Prescription Coverage: Yes Preferred Pharmacy: [address] [address] [place] Status: Patient is a : No Primary Care Provider confirmed: Alexia Mtz, FREDRICK [phone] Patient/Caregiver Goals of Treatment: return home Potential [...] 07/29/2024 6:25 PM EST Pt arrived from label designer @ 1400. CXR and EKG completed. Impella [...] Procedure Note: Patient Name: Korey Montoya : [id number] MR#: [id number] Case Date: 07/29/2024 Allocations Clerk: Surgeons and Role: * Vahe Marvin MD - Primary * Susannah Watts PA - Physician Model Maker Plaster Preoperative diagnosis: STEMI Postoperative diagnosis: * STEMI, LAD Artery * * Cardiogenic Shock * Procedure(s) performed: [facility] Coronary angiogram Stent insertion coronary IVUS coronary Venous line insert RH [place] Colette Catheter Vascular closure device Ventricular assist [...] x 22 mm to 14 deonna JEISON Preston with LIZ 3 flow. Residual distal disease at distal stent, overlapping distal stent was inserted with 3.0 x 8 mm JEISON Preston. Systolic's in the 80's sustained. Patient re [...] AM EST Office Visit Cardiology at [address] [phone] Mushtaq Murphy, DRAW FURNACE TENDER Scheduled Orders Name Type Priority Associated Diagnoses [...] CBC (with Diff) (08/04/2024 6:08 AM EST) [facility] White Blood Cell 7.27 4.00 - 9.50 x10(3)/mc L 08/04/2024 6:39 AM [facility] Red Blood Cell 4.28(L) 4.58 - 5.54 x10(6)/mc L 08/04/2024 6:39 AM [facility] Hemoglobin 11.6(L) 13.7 - 16.5 g/dL 08/04/2024 6:39 AM [facility] Hematocrit 34.8(L) 40.5 - 48.5 % 08/04/2024 6:39 AM [facility] Mean Cell Volume 81.3(L) 82.9 - 93.1 fL 08/04/2024 6:39 AM [facility] Mean Cell Hemoglobin 27.1(L) 27.5 - 32.1 pg 08/04/2024 6:39 AM [facility] Mean Cell Hemoglobin Concentration 33.3 32.0 - 35.7 g/dL 08/04/2024 6:39 AM [facility] Platelet 178 145 - 357 x10(3)/mc L 08/04/2024 6:39 AM [facility] Mean Platelet Volume 10.6 7.6 - 12.9 fL 08/04/2024 6:39 AM [facility] RDW Standard Deviation 42.0 36.0 - 45.0 fL 08/04/2024 6:39 AM [facility] RDW coefficient of variation 14.3(H) 11.4 - 13.8 % 08/04/2024 6:39 AM [facility] NRBC% auto 0.0 % 08/04/2024 6:39 AM [facility] NRBC Absolute <0.01 <0.01 x10(3)/mc L 08/04/2024 6:39 AM [facility] Neutrophil % 72.1 % 08/04/2024 6:39 AM [facility] Neutrophil Absolute (ANC) - Automated 5.24 1.70 - 6.10 x10(3)/mc L 08/04/2024 6:39 AM [facility] Lymph % 16.8 % 08/04/2024 6:39 AM [facility] Lymph Absolute 1.22 0.90 - 3.20 x10(3)/mc L 08/04/2024 6:39 AM [facility] Monocyte % 8.5 % 08/04/2024 6:39 AM [facility] Monocyte Absolute 0.62 0.30 - 0.90 x10(3)/mc L 08/04/2024 6:39 AM [facility] Eos % 1.9 % 08/04/2024 6:39 AM [facility] Eos Absolute 0.14 0.00 - 0.40 x10(3)/mc L 08/04/2024 6:39 AM [facility] Basophil % 0.4 % 08/04/2024 6:39 AM [facility] Baso Absolute <0.04 0.00 - 0.10 x10(3)/mc L 08/04/2024 6:39 AM [facility] Immature Gran % 0.3 % 6:39 AM [facility] Immature Gran Absolute <0.04 0.00 - 0.04 x10(3)/mc L 08/04/2024 6:39 AM [facility] Blood VENOUS BLOOD SPECIMEN / Unknown Venipuncture / Unknown 08/04/2024 6:08 AM EST 08/04/2024 6:19 AM EST Bridgette Stauffer MD HEMATOLOGY ORDERABLE S [facility] [place] [address] * Magnesium (08/04/2024 6:08 AM EST) Magnesium 0.85 0.69 - 1.07 mMol/L 08/04/2024 7:07 AM [facility] Blood VENOUS BLOOD SPECIMEN / Unknown Venipuncture / Unknown 08/04/2024 6:08 AM EST 08/04/2024 6:19 AM EST Bridgette Stauffer MD CHEMISTRY ORDERABLES [facility] [place] [address] * Basic Metabolic Panel (08/04/2024 6:08 AM EST) Glucose 93 65 - 199 mg/dL 08/04/2024 7:07 AM [facility] Comment:Glucose Concentratio n >=200 mg/dL plus symptoms is consistent with Diabetes Mellitus. Blood Urea Nitrogen 14 10 - 20 mg/dL 08/04/2024 7:07 AM [facility] Creatinine 1.07 0.80 - 1.50 mg/dL 08/04/2024 7:07 AM [facility] Sodium 138 135 - 145 mMol/L 08/04/2024 7:07 AM [facility] Potassium 4.3 3.5 - 5.0 mMol/L 08/04/2024 7:07 AM [facility] Chloride 107 98 - 107 mMol/L 08/04/2024 7:07 AM [facility] Carbon Dioxide 23 22 - 31 mMol/L 08/04/2024 7:07 AM [facility] Anion Gap 8 5 - 15 mMol/L 08/04/2024 7:07 AM [facility] Calcium 8.5 8.5 - 10.5 mg/dL 08/04/2024 7:07 AM [facility] Est Glomerular Filtration Rate - Male 74 mL/min/1. 73 m?? 08/04/2024 7:07 AM [facility] Comment: This patient's estimated [...] AM EST Bridgette Stauffer MD CHEMISTRY ORDERABLES [facility] [place] [address] * (ABNORMAL) CBC (with Diff) (08/03/2024 5:16 AM EST) White Blood Cell 7.85 4.00 - 9.50 x10(3)/mc L 08/03/2024 5:29 AM [facility] Red Blood Cell 4.43(L) 4.58 - 5.54 x10(6)/mc L 08/03/2024 5:29 AM [facility] Hemoglobin 11.8(L) 13.7 - 16.5 g/dL 08/03/2024 5:29 AM [facility] Hematocrit 35.9(L) 40.5 - 48.5 % 08/03/2024 5:29 AM [facility] Mean Cell Volume 81.0(L) 82.9 - 93.1 fL 08/03/2024 5:29 AM [facility] Mean Cell Hemoglobin 26.6(L) 27.5 - 32.1 pg 08/03/2024 5:29 AM [facility] Mean Cell Hemoglobin Concentration 32.9 32.0 - 35.7 g/dL 08/03/2024 5:29 AM [facility] Platelet 142(L) 145 - 357 x10(3)/mc L 08/03/2024 5:29 AM [facility] Mean Platelet Volume 10.5 7.6 - 12.9 fL 08/03/2024 5:29 AM [facility] RDW Standard Deviation 42.5 36.0 - 45.0 fL 08/03/2024 5:29 AM [facility] RDW coefficient of variation 14.2(H) 11.4 - 13.8 % 08/03/2024 5:29 AM [facility] NRBC% auto 0.0 % 08/03/2024 5:29 AM [facility] NRBC Absolute <0.01 <0.01 x10(3)/mc L 08/03/2024 5:29 AM [facility] Neutrophil % 75.2 % 08/03/2024 5:29 AM [facility] Neutrophil Absolute (ANC) - Automated 5.91 1.70 - 6.10 x10(3)/mc L 08/03/2024 5:29 AM [facility] Lymph % 13.4 % 08/03/2024 5:29 AM [facility] Lymph Absolute 1.05 0.90 - 3.20 x10(3)/mc L 08/03/2024 5:29 AM [facility] Monocyte % 9.0 % 08/03/2024 5:29 AM [facility] Monocyte Absolute 0.71 0.30 - 0.90 x10(3)/mc L 08/03/2024 5:29 AM [facility] Eos % 1.7 % 08/03/2024 5:29 AM [facility] Eos Absolute 0.13 0.00 - 0.40 x10(3)/mc L 08/03/2024 5:29 AM [facility] Basophil % 0.4 % 08/03/2024 5:29 AM [facility] Baso Absolute <0.04 0.00 - 0.10 x10(3)/mc L 08/03/2024 5:29 AM [facility] Immature Gran % 0.3 % 5:29 AM [facility] Immature Gran Absolute <0.04 0.00 - 0.04 x10(3)/mc L 08/03/2024 5:29 AM [facility] Blood VENOUS BLOOD SPECIMEN / Unknown Venipuncture / Unknown 08/03/2024 5:16 AM EST 08/03/2024 5:23 AM EST Bridgette Stauffer MD HEMATOLOGY ORDERABLE S [facility] [place] [address] * Magnesium (08/03/2024 5:16 AM EST) Magnesium 0.89 0.69 - 1.07 mMol/L 08/03/2024 5:56 AM [facility] Blood VENOUS BLOOD SPECIMEN / Unknown Venipuncture / Unknown 08/03/2024 5:16 AM EST 08/03/2024 5:23 AM EST Bridgette Stauffer MD CHEMISTRY ORDERABLES [facility] [place] [address] * (ABNORMAL) Basic Metabolic Panel (08/03/2024 5:16 AM EST) Glucose 98 65 - 199 mg/dL 08/03/2024 5:56 AM [facility] Comment:Glucose Concentratio n >=200 mg/dL plus symptoms is consistent with Diabetes Mellitus. Blood Urea Nitrogen 16 10 - 20 mg/dL 08/03/2024 5:56 AM [facility] Creatinine 0.85 0.80 - 1.50 mg/dL 08/03/2024 5:56 AM [facility] Sodium 137 135 - 145 mMol/L 08/03/2024 5:56 AM EST [facility] Potassium 4.5 3.5 - 5.0 mMol/L 08/03/2024 5:56 AM [facility] Chloride 106 98 - 107 mMol/L 08/03/2024 5:56 AM [facility] Carbon Dioxide 21(L) 22 - 31 mMol/L 08/03/2024 5:56 AM [facility] Anion Gap 10 5 - 15 mMol/L 08/03/2024 5:56 AM EST [facility] Calcium 8.3(L) 8.5 - 10.5 mg/dL 08/03/2024 5:56 AM [facility] Est Glomerular Filtration Rate - Male 92 mL/min/1. 73 m?? 08/03/2024 5:56 AM [facility] Comment: This patient's estimated [...] CHEMISTRY ORDERABLES Performing Organization Address [facility]/ZIP Co de Phone Number [facility] [place] [address] * POC, GLUCOSE (08/02/2024 7:47 AM EST) Glucometer, POC 89 65 - 199 mg/dL 08/02/2024 7:47 AM EST [facility] Comment:Supplemental ranges: <140 mg/dL before meals <180 mg/dL all other times of the day. Blood CAPILLARY BLOOD / Unknown 08/02/2024 7:47 AM EST 08/02/2024 7:47 AM EST Krystal Parker MD POINT OF CARE TEST O RDERABLES Performing Organization Address [facility] Co de Phone Number [facility] [place] [address] * (ABNORMAL) CBC (with Diff) (08/02/2024 4:20 AM EST) White Blood Cell 8.51 4.00 - 9.50 x10(3)/mc L 08/02/2024 4:50 AM EST [facility] Red Blood Cell 4.41(L) 4.58 - 5.54 x10(6)/mc L 08/02/2024 4:50 AM EST [facility] Hemoglobin 12.2(L) 13.7 - 16.5 g/dL 08/02/2024 4:50 AM EST [facility] Hematocrit 35.8(L) 40.5 - 48.5 % 08/02/2024 4:50 AM [facility] Mean Cell Volume 81.2(L) 82.9 - 93.1 fL 08/02/2024 4:50 AM [facility] Mean Cell Hemoglobin 27.7 27.5 - 32.1 pg 08/02/2024 4:50 AM [facility] Mean Cell Hemoglobin Concentration 34.1 32.0 - 35.7 g/dL 08/02/2024 4:50 AM [facility] Platelet 111(L) 145 - 357 x10(3)/mc L 08/02/2024 4:50 AM [facility] Mean Platelet Volume 11.1 7.6 - 12.9 fL 08/02/2024 4:50 AM [facility] RDW Standard Deviation 41.9 36.0 - 45.0 fL 08/02/2024 4:50 AM [facility] RDW coefficient of variation 14.1(H) 11.4 - 13.8 % 08/02/2024 4:50 AM [facility] NRBC% auto 0.0 % 08/02/2024 4:50 AM [facility] NRBC Absolute <0.01 <0.01 x10(3)/mc L 08/02/2024 4:50 AM [facility] Neutrophil % 77.7 % 08/02/2024 4:50 AM [facility] Neutrophil Absolute (ANC) - Automated 6.62(H) 1.70 - 6.10 x10(3)/mc L 08/02/2024 4:50 AM [facility] Lymph % 11.9 % 08/02/2024 4:50 AM [facility] Lymph Absolute 1.01 0.90 - 3.20 x10(3)/mc L 08/02/2024 4:50 AM [facility] Monocyte % 8.2 % 08/02/2024 4:50 AM [facility] Monocyte Absolute 0.70 0.30 - 0.90 x10(3)/mc L 08/02/2024 4:50 AM [facility] Eos % 1.4 % 08/02/2024 4:50 AM [facility] Eos Absolute 0.12 0.00 - 0.40 x10(3)/mc L 08/02/2024 4:50 AM [facility] Basophil % 0.4 % 08/02/2024 4:50 AM [facility] Baso Absolute <0.04 0.00 - 0.10 x10(3)/mc L 08/02/2024 4:50 AM [facility] Immature Gran % 0.4 % 4:50 AM [facility] Immature Gran Absolute <0.04 0.00 - 0.04 x10(3)/mc L 08/02/2024 4:50 AM [facility] Blood VENOUS BLOOD SPECIMEN / Unknown Venipuncture / Unknown 08/02/2024 4:20 AM EST 08/02/2024 4:37 AM EST Bridgette Stauffer MD HEMATOLOGY ORDERABLE S [facility] [place] [address] * Magnesium (08/02/2024 4:20 AM EST) Magnesium 0.79 0.69 - 1.07 mMol/L 08/02/2024 5:06 AM EST [facility] Blood VENOUS BLOOD SPECIMEN / Unknown Venipuncture / Unknown 08/02/2024 4:20 AM EST 08/02/2024 4:37 AM EST Bridgette Stauffer MD CHEMISTRY ORDERABLES [facility] [place] [address] * (ABNORMAL) Basic Metabolic Panel (08/02/2024 4:20 AM EST) Glucose 110 65 - 199 mg/dL 08/02/2024 5:06 AM [facility] Comment:Glucose Concentratio n >=200 mg/dL plus symptoms is consistent with Diabetes Mellitus. Blood Urea Nitrogen 12 10 - 20 mg/dL 08/02/2024 5:06 AM [facility] Creatinine 0.90 0.80 - 1.50 mg/dL 08/02/2024 5:06 AM [facility] Sodium 139 135 - 145 mMol/L 08/02/2024 5:06 AM [facility] Potassium 4.0 3.5 - 5.0 mMol/L 08/02/2024 5:06 AM [facility] Chloride 108(H) 98 - 107 mMol/L 08/02/2024 5:06 AM [facility] Carbon Dioxide 23 22 - 31 mMol/L 08/02/2024 5:06 AM [facility] Anion Gap 8 5 - 15 mMol/L 08/02/2024 5:06 AM [facility] Calcium 8.1(L) 8.5 - 10.5 mg/dL 08/02/2024 5:06 AM [facility] Est Glomerular Filtration Rate - Male 91 mL/min/1. 73 m?? 08/02/2024 5:06 AM [facility] Comment: This patient's estimated [...] CHEMISTRY ORDERABLES Performing Organization Address [facility] Co de Phone Number [facility] [place] [address] * Potassium (08/01/2024 8:39 PM EST) Potassium 4.0 3.5 - 5.0 mMol/L 08/01/2024 9:21 PM EST [facility] Blood VENOUS BLOOD SPECIMEN / Unknown Venipuncture / Unknown 08/01/2024 8:39 PM EST 08/01/2024 8:51 PM EST Jay Silverio MD CHEMISTRY ORDERABL ES Performing Organization Address [facility] Phone Number [facility] [place] [address] * POC, GLUCOSE (08/01/2024 8:35 PM EST) Glucometer, POC 112 65 - 199 mg/dL 08/01/2024 8:36 PM EST [facility] Comment:Supplemental ranges: <140 mg/dL before meals <180 mg/dL all other times of the day. Blood CAPILLARY BLOOD / Unknown 08/01/2024 8:35 PM EST 08/01/2024 8:36 PM EST Krystal Parker MD POINT OF CARE TEST O RDERABLES Performing Organization Address [facility] Co de Phone Number [facility] [place] [address] * POC, GLUCOSE (08/01/2024 4:55 PM EST) Glucometer, POC 99 65 - 199 mg/dL 08/01/2024 4:56 PM EST [facility] Comment:Supplemental ranges: <140 mg/dL before meals <180 mg/dL all other times of the day. Blood CAPILLARY BLOOD / Unknown 08/01/2024 4:55 PM EST 08/01/2024 4:56 PM EST Krystal Parker MD POINT OF CARE TEST O JOSH Performing Organization Address [facility] Co de Phone Number [facility] [place] [address] * POC, GLUCOSE (08/01/2024 12:42 PM EST) Glucometer, POC 130 65 - 199 mg/dL 08/01/2024 12:43 PM EST [facility] Comment:Supplemental ranges: <140 mg/dL before meals <180 mg/dL all other times of the day. Blood CAPILLARY BLOOD / Unknown 08/01/2024 12:42 PM EST 08/01/2024 12:43 PM EST Krystal Parker MD POINT OF CARE TEST O JOSH Performing Organization Address [facility] Co de Phone Number [facility] [place] [address] * (ABNORMAL) Cooximetry, POC (08/01/2024 10:45 AM EST) pO2, Coox 32 mmHg 08/01/2024 10:48 AM [facility] Hemoglobin, Coox 12.9(L) 13.7 - 16.5 g/dL 08/01/2024 10:48 AM EST [facility] Oxyhemoglobin, Coox 66.7 % 08/01/2024 10:48 AM [facility] Carboxyhemoglo bin, Coox 1.1 % 08/01/2024 10:48 AM EST [facility] Comment: Nonsmokers: 0.5-1.5% COHB ?? Smokers: Variable ??but usually less than 10% ?? Toxic: 20-30% COHB ?? Lethal: Greater than 60% COHB Methemoglobin, Coox 0.3 <=1.5 % 08/01/2024 10:48 AM EST [facility] Blood (Mixed Venous) 08/01/2024 10:45 AM EST 08/01/2024 10:48 AM EST Krystal Parker MD POINT OF CARE TEST O RDERABLES Performing Organization Address [facility] Co de Phone Number [facility] [place] [address] * Potassium (08/01/2024 8:20 AM EST) Potassium 4.0 3.5 - 5.0 mMol/L 08/01/2024 10:17 AM EST [facility] Blood ARTERIAL BLOOD / Unknown Venipuncture / Unknown 08/01/2024 8:20 AM EST 08/01/2024 8:30 AM EST Jay Silverio MD CHEMISTRY ORDERABL ES Performing Organization Address [facility] Co de Phone Number [facility] [place] [address] * POC, GLUCOSE (08/01/2024 7:44 AM EST) Glucometer, POC 86 65 - 199 mg/dL 08/01/2024 7:44 AM EST [facility] Comment:Supplemental ranges: <140 mg/dL before meals <180 mg/dL all other times of the day. Blood CAPILLARY BLOOD / Unknown 08/01/2024 7:44 AM EST 08/01/2024 7:44 AM EST Krystal Parker MD POINT OF CARE TEST O RDERASHAY Performing Organization Address [facility]/ZIP Co de Phone Number [facility] [place] [address] * (ABNORMAL) CBC (with Diff) (08/01/2024 4:18 AM EST) White Blood Cell 8.51 4.00 - 9.50 x10(3)/mc L 08/01/2024 4:53 AM EST [facility] Red Blood Cell 4.12(L) 4.58 - 5.54 x10(6)/mc L 08/01/2024 4:53 AM [facility] Hemoglobin 11.2(L) 13.7 - 16.5 g/dL 08/01/2024 4:53 AM [facility] Hematocrit 33.8(L) 40.5 - 48.5 % 08/01/2024 4:53 AM [facility] Mean Cell Volume 82.0(L) 82.9 - 93.1 fL 08/01/2024 4:53 AM [facility] Mean Cell Hemoglobin 27.2(L) 27.5 - 32.1 pg 08/01/2024 4:53 AM [facility] Mean Cell Hemoglobin Concentration 33.1 32.0 - 35.7 g/dL 08/01/2024 4:53 AM [facility] Platelet 94(L) 145 - 357 x10(3)/mc L 08/01/2024 4:53 AM [facility] Mean Platelet Volume 10.9 7.6 - 12.9 fL 08/01/2024 4:53 AM [facility] RDW Standard Deviation 44.2 36.0 - 45.0 fL 08/01/2024 4:53 AM [facility] RDW coefficient of variation 14.7(H) 11.4 - 13.8 % 08/01/2024 4:53 AM [facility] NRBC% auto 0.0 % 08/01/2024 4:53 AM [facility] NRBC Absolute <0.01 <0.01 x10(3)/mc L 08/01/2024 4:53 AM [facility] LABORATORY Neutrophil % 82.7 % 08/01/2024 4:53 AM [facility] Neutrophil Absolute (ANC) - Automated 7.04(H) 1.70 - 6.10 x10(3)/mc L 08/01/2024 4:53 AM [facility] Lymph % 8.6 % 08/01/2024 4:53 AM [facility] Lymph Absolute 0.73(L) 0.90 - 3.20 x10(3)/mc L 08/01/2024 4:53 AM [facility] Monocyte % 7.6 % 08/01/2024 4:53 AM [facility] Monocyte Absolute 0.65 0.30 - 0.90 x10(3)/mc L 08/01/2024 4:53 AM [facility] Eos % 0.5 % 08/01/2024 4:53 AM [facility] Eos Absolute 0.04 0.00 - 0.40 x10(3)/mc L 08/01/2024 4:53 AM [facility] Basophil % 0.2 % 08/01/2024 4:53 AM [facility] Baso Absolute <0.04 0.00 - 0.10 x10(3)/mc L 08/01/2024 4:53 AM [facility] Immature Gran % 0.4 % 4:53 AM [facility] Immature Gran Absolute <0.04 0.00 - 0.04 x10(3)/mc L 08/01/2024 4:53 AM [facility] Blood VENOUS BLOOD SPECIMEN / Unknown Venipuncture / Unknown 08/01/2024 4:18 AM EST 08/01/2024 4:29 AM EST Bridgette Stauffer MD HEMATOLOGY ORDERABLE S [facility] [place] [address] * Magnesium (08/01/2024 4:18 AM EST) Magnesium 0.74 0.69 - 1.07 mMol/L 08/01/2024 5:00 AM [facility] Blood VENOUS BLOOD SPECIMEN / Unknown Venipuncture / Unknown 08/01/2024 4:18 AM EST 08/01/2024 4:29 AM EST Bridgette Stauffer MD CHEMISTRY ORDERABLES [facility] [place] [address] * (ABNORMAL) Basic Metabolic Panel (08/01/2024 4:18 AM EST) Glucose 107 65 - 199 mg/dL 08/01/2024 5:00 AM [facility] Comment:Glucose Concentratio n >=200 mg/dL plus symptoms is consistent with Diabetes Mellitus. Blood Urea Nitrogen 8(L) 10 - 20 mg/dL 08/01/2024 5:00 AM [facility] Creatinine 0.82 0.80 - 1.50 mg/dL 08/01/2024 5:00 AM [facility] Sodium 137 135 - 145 mMol/L 08/01/2024 5:00 AM [facility] Potassium 3.9 3.5 - 5.0 mMol/L 08/01/2024 5:00 AM [facility] Chloride 108(H) 98 - 107 mMol/L 08/01/2024 5:00 AM [facility] Carbon Dioxide 21(L) 22 - 31 mMol/L 08/01/2024 5:00 AM [facility] Anion Gap 8 5 - 15 mMol/L 08/01/2024 5:00 AM [facility] Calcium 7.7(L) 8.5 - 10.5 mg/dL 08/01/2024 5:00 AM [facility] Est Glomerular Filtration Rate - Male 93 mL/min/1. 73 m?? 08/01/2024 5:00 AM [facility] Comment: This patient's estimated [...] CHEMISTRY ORDERABLES Performing Organization Address [facility] Co de Phone Number [facility] [place] [address] * POC, GLUCOSE (07/31/2024 8:41 PM EST) [facility] Signature Glucometer, POC 73 65 - 199 mg/dL 07/31/2024 8:41 PM EST [facility] Comment:Supplemental ranges: <140 mg/dL before meals <180 mg/dL all other times of the day. Blood CAPILLARY BLOOD / Unknown 07/31/2024 8:41 PM EST 07/31/2024 8:41 PM EST Krystal Parker MD POINT OF CARE TEST O RDERABLES Performing Organization Address [facility] Co de Phone Number [facility] [place] [address] * CARDIAC CATHETERIZATION (07/31/2024 5:53 PM EST) Anatomical Region Laterality Modality Other Narrative 08/01/2024 12:37 PM EST ?[facility] ? Cardiac Catheterization/Intervention Report ? Patient Name: Korey Montoya. ? Procedure Date: 07/31/2024 ? A #: [id number] ? Primary Physician: Janelle, Maldonado T ? Case #: [id number] ? File Name: [id number] ? Catheterization Order Number: [id number] ? [facility] ? Final Report [place], [place] ? Patient Name: ? Korey P. Montoya ?ID#: ?[id number] ? : ?1950 ? Procedure Date: ? July 31, 2024 ?Case #: ? [id number] ? Room: ? 1 ? Case Physician: [...] ? Comments: ?Impella removed from the right [employer] with deployment of Perclose and ?Angioseal. [...] Procedure Note Maldonado Luis MD - 08/01/2024 [facility] Cardiac Catheterization/Intervention Report Patient Name: Korey MontoyaToby Procedure Date: 07/31/2024 A #: [id number] Primary Physician: Maldonado Luis Case #: [id number] File Name: [id number] Catheterization Order Number: [id number] [facility] FinalReport [place], [place] Patient Name: Korey Montoya ID#:[id number] :1950 Procedure Date: July 31, 2024 Case [...] was designated as ASA Class IV. The [facility] clinical frailtyscale is 4: Vulnerable. Diagnostic [...] procedures. Comments: Impella removed from the right [employer] with deployment of Perclose and Angioseal. [...] * POC, GLUCOSE (07/31/2024 11:04 AM EST) [facility] Glucometer, POC 82 65 - 199 mg/dL 07/31/2024 11:04 AM EST [facility] Comment:Supplemental ranges: <140 mg/dL before meals <180 mg/dL all other times of the day. Blood CAPILLARY BLOOD / Unknown 07/31/2024 11:04 AM EST 07/31/2024 11:04 AM EST Krystal Parker MD POINT OF CARE TEST O RDERABLES [facility] [place] [address] * (ABNORMAL) Blood Gas, Arterial POC (07/31/2024 8:29 AM EST) Pathologist [facility] pH, Arterial 7.48(H) 7.35 - 7.45 07/31/2024 8:30 AM EST [facility] PCO2, Arterial 29(L) 35 - 45 mmHg 07/31/2024 8:30 AM EST [facility] PO2, Arterial 71(L) 85 - 104 mmHg 07/31/2024 8:30 AM EST [facility] Bicarbonate, Arterial 20.6 20.0 - 26.0 mmol/L 07/31/2024 8:30 AM EST [facility] Base Excess, Arterial -3.0 -3.0 - 3.0 mmol/L 07/31/2024 8:30 AM [facility] Hemoglobin, Arterial 12.3(L) 13.7 - 16.5 g/dL 07/31/2024 8:30 AM [facility] Oxyhemoglobin, Arterial 94.4 94.0 - 97.0 % 07/31/2024 8:30 AM [facility] Carboxyhemoglobin , Arterial 0.7 % 07/31/2024 8:30 AM [facility] Comment: Nonsmokers: 0.5-1.5% COHB ?? Smokers: Variable ??but usually less than 10% ?? Toxic: 20-30% COHB ?? Lethal: Greater than 60% COHB Methemoglobin, Arterial 0.3 <=1.5 % 07/31/2024 8:30 AM [facility] Sodium, Arterial 138 135 - 145 mmol/L 07/31/2024 8:30 AM [facility] Potassium, Arterial 3.5 3.5 - 5.0 mmol/L 07/31/2024 8:30 AM [facility] Chloride, Arterial 109(H) 98 - 107 mmol/L 07/31/2024 8:30 AM [facility] Lactate, Arterial 0.8 0.5 - 2.2 mmol/L 07/31/2024 8:30 AM [facility] Fraction of Inspired Oxygen 21 % 07/31/2024 8:30 AM [facility] PF Ratio 338 Ratio 07/31/2024 8:30 AM [facility] Comment:PF ratio calculated using the non-temperature corrected pO2 result. IONIZED CALCIUM, ARTERIAL 1.08(L) 1.15 - 1.33 mmol/L 07/31/2024 8:30 AM [facility] Glucose, Arterial 86 65 - 199 mg/dL 07/31/2024 8:30 AM [facility] Comment:Glucose Concentratio n >=200 mg/dL plus symptoms is consistent with Diabetes Mellitus. Blood ARTERIAL BLOOD / Unknown 07/31/2024 8:29 AM EST 07/31/2024 8:30 AM EST Krystal Parker MD POINT OF CARE TEST O JOSH Performing Organization Address [facility]/ZIP Co de Phone Number [facility] [place] [address] * POC, GLUCOSE (07/31/2024 7:47 AM EST) Glucometer, POC 82 65 - 199 mg/dL 07/31/2024 7:53 AM [facility] Comment:Supplemental ranges: <140 mg/dL before meals <180 mg/dL all other times of the day. Blood CAPILLARY BLOOD / Unknown 07/31/2024 7:47 AM EST 07/31/2024 7:53 AM EST Krystal Parker MD POINT OF CARE TEST O JOSH Performing Organization Address [facility] Co de Phone Number [facility] [place] [address] * (ABNORMAL) CBC (with Diff) (07/31/2024 1:08 AM EST) White Blood Cell 10.25(H) 4.00 - 9.50 x10(3)/mc L 07/31/2024 1:28 AM [facility] Red Blood Cell 4.13(L) 4.58 - 5.54 x10(6)/mc L 07/31/2024 1:28 AM [facility] Hemoglobin 11.2(L) 13.7 - 16.5 g/dL 07/31/2024 1:28 AM [facility] Hematocrit 33.9(L) 40.5 - 48.5 % 07/31/2024 1:28 AM [facility] Mean Cell Volume 82.1(L) 82.9 - 93.1 fL 07/31/2024 1:28 AM [facility] Mean Cell Hemoglobin 27.1(L) 27.5 - 32.1 pg 07/31/2024 1:28 AM [facility] Mean Cell Hemoglobin Concentration 33.0 32.0 - 35.7 g/dL 07/31/2024 1:28 AM [facility] Platelet 109(L) 145 - 357 x10(3)/mc L 07/31/2024 1:28 AM [facility] Mean Platelet Volume 10.4 7.6 - 12.9 fL 07/31/2024 1:28 AM [facility] RDW Standard Deviation 45.1(H) 36.0 - 45.0 fL 07/31/2024 1:28 AM [facility] RDW coefficient of variation 15.1(H) 11.4 - 13.8 % 07/31/2024 1:28 AM [facility] NRBC% auto 0.0 % 07/31/2024 1:28 AM [facility] NRBC Absolute <0.01 <0.01 x10(3)/mc L 07/31/2024 1:28 AM [facility] Neutrophil % 79.7 % 07/31/2024 1:28 AM [facility] Neutrophil Absolute (ANC) - Automated 8.17(H) 1.70 - 6.10 x10(3)/mc L 07/31/2024 1:28 AM [facility] Lymph % 12.8 % 07/31/2024 1:28 AM [facility] Lymph Absolute 1.31 0.90 - 3.20 x10(3)/mc L 07/31/2024 1:28 AM [facility] Monocyte % 6.9 % 07/31/2024 1:28 AM [facility] Monocyte Absolute 0.71 0.30 - 0.90 x10(3)/mc L 07/31/2024 1:28 AM [facility] Eos % 0.1 % 07/31/2024 1:28 AM [facility] Eos Absolute <0.04 0.00 - 0.40 x10(3)/mc L 07/31/2024 1:28 AM EST [facility] Basophil % 0.3 % 07/31/2024 1:28 AM EST [facility] Baso Absolute <0.04 0.00 - 0.10 x10(3)/mc L 07/31/2024 1:28 AM EST [facility] Immature Gran % 0.2 % 1:28 AM EST [facility] Immature Gran Absolute <0.04 0.00 - 0.04 x10(3)/mc L 07/31/2024 1:28 AM EST [facility] Blood VENOUS BLOOD SPECIMEN / Unknown Venipuncture / Unknown 07/31/2024 1:08 AM EST 07/31/2024 1:18 AM EST Bridgette Stauffer MD HEMATOLOGY ORDERABLE S Performing Organization Address City/[facility]/ZIP Co de Phone Number [facility] [place] [address] * Magnesium (07/31/2024 1:08 AM EST) Magnesium 0.89 0.69 - 1.07 mMol/L 07/31/2024 1:46 AM EST [facility] Blood VENOUS BLOOD SPECIMEN / Unknown Venipuncture / Unknown 07/31/2024 1:08 AM EST 07/31/2024 1:18 AM EST Bridgette Stauffer MD CHEMISTRY ORDERABLES [facility] [place] [address] * (ABNORMAL) Basic Metabolic Panel (07/31/2024 1:08 AM EST) Glucose 97 65 - 199 mg/dL 07/31/2024 1:46 AM EST [facility] Comment:Glucose Concentratio n >=200 mg/dL plus symptoms is consistent with Diabetes Mellitus. Blood Urea Nitrogen 11 10 - 20 mg/dL 07/31/2024 1:46 AM [facility] Creatinine 0.96 0.80 - 1.50 mg/dL 07/31/2024 1:46 AM EST [facility] Sodium 140 135 - 145 mMol/L 07/31/2024 1:46 AM [facility] Potassium 4.1 3.5 - 5.0 mMol/L 07/31/2024 1:46 AM EST [facility] Chloride 110(H) 98 - 107 mMol/L 07/31/2024 1:46 AM [facility] Carbon Dioxide 24 22 - 31 mMol/L 07/31/2024 1:46 AM [facility] Anion Gap 6 5 - 15 mMol/L 07/31/2024 1:46 AM [facility] Calcium 7.7(L) 8.5 - 10.5 mg/dL 07/31/2024 1:46 AM [facility] Est Glomerular Filtration Rate - Male 84 mL/min/1. 73 m?? 07/31/2024 1:46 AM [facility] Comment: This patient's estimated [...] AM EST Bridgette Stauffer MD CHEMISTRY ORDERABLES [facility] [place] [address] * (ABNORMAL) Hepatic Function Panel (07/31/2024 1:08 AM EST) Albumin 3.1(L) 3.2 - 5.2 g/dL 07/31/2024 1:46 AM [facility] Aspartate Aminotransferase 192(H) <=39 unit/L 07/31/2024 1:46 AM [facility] Alanine Aminotransferase 59(H) 0 - 55 unit/L 07/31/2024 1:46 AM [facility] Alkaline Phosphatase 46 40 - 130 unit/L 07/31/2024 1:46 AM [facility] Bilirubin, Total 0.4 <=1.3 mg/dL 07/31/2024 1:46 AM [facility] Bilirubin, Direct <0.2 0.0 - 0.3 mg/dL 07/31/2024 1:46 AM [facility] Protein, Total 5.0(L) 6.1 - 8.0 g/dL 07/31/2024 1:46 AM [facility] Blood VENOUS BLOOD SPECIMEN / Unknown Venipuncture / Unknown 07/31/2024 1:08 AM EST 07/31/2024 1:18 AM EST Krystal Parker MD CHEMISTRY ORDERABLES Performing Organization Address City/[facility] Co de Phone Number [facility] [place] [address] * POC, GLUCOSE (07/30/2024 8:03 PM EST) Glucometer, POC 86 65 - 199 mg/dL 07/30/2024 8:03 PM [facility] Comment:Supplemental ranges: <140 mg/dL before meals <180 mg/dL all other times of the day. Blood CAPILLARY BLOOD / Unknown 07/30/2024 8:03 PM EST 07/30/2024 8:03 PM EST Krystal Parker MD POINT OF CARE TEST O RDERABLES [facility] [place] [address] * Potassium (07/30/2024 8:03 PM EST) Potassium 3.8 3.5 - 5.0 mMol/L 07/30/2024 9:13 PM EST [facility] Blood VENOUS BLOOD SPECIMEN / Unknown Venipuncture / Unknown 07/30/2024 8:03 PM EST 07/30/2024 8:22 PM EST Jay Silverio MD CHEMISTRY ORDERABL ES Performing Organization Address [facility] Co de Phone Number [facility] [place] [address] * POC, GLUCOSE (07/30/2024 6:23 PM EST) Glucometer, POC 93 65 - 199 mg/dL 07/30/2024 6:24 PM EST [facility] Comment:Supplemental ranges: <140 mg/dL before meals <180 mg/dL all other times of the day. Blood CAPILLARY BLOOD / Unknown 07/30/2024 6:23 PM EST 07/30/2024 6:24 PM EST Krystal Parker MD POINT OF CARE TEST O RDERABLES Performing Organization Address City/[facility]/ZIP Co de Phone Number [facility] [place] [address] * POC, GLUCOSE (07/30/2024 5:08 PM EST) Glucometer, POC 78 65 - 199 mg/dL 07/30/2024 5:08 PM EST [facility] Comment:Supplemental ranges: <140 mg/dL before meals <180 mg/dL all other times of the day. Blood CAPILLARY BLOOD / Unknown 07/30/2024 5:08 PM EST 07/30/2024 5:08 PM EST Krystal Parker MD POINT OF CARE TEST O RDERABLES Performing Organization Address [facility]/ZIP Co de Phone Number [facility] [place] [address] * (ABNORMAL) Phosphorus (07/30/2024 3:08 PM EST) Phosphorus 2.1(L) 2.5 - 4.5 mg/dL 07/30/2024 3:58 PM EST [facility] Blood VENOUS BLOOD SPECIMEN / Unknown Venipuncture / Unknown 07/30/2024 3:08 PM EST 07/30/2024 3:12 PM EST Jay Silverio MD CHEMISTRY ORDERABL ES Performing Organization Address [facility] Co de Phone Number [facility] [place] [address] * Magnesium (07/30/2024 3:08 PM EST) Magnesium 0.90 0.69 - 1.07 mMol/L 07/30/2024 3:58 PM EST [facility] Blood VENOUS BLOOD SPECIMEN / Unknown Venipuncture / Unknown 07/30/2024 3:08 PM EST 07/30/2024 3:12 PM EST Jay Silverio MD CHEMISTRY ORDERABL ES Performing Organization Address [facility]/ZIP Co de Phone Number [facility] [place] [address] * (ABNORMAL) Basic Metabolic Panel (07/30/2024 3:08 PM EST) Glucose 105 65 - 199 mg/dL 07/30/2024 4:17 PM EST [facility] Comment:Glucose Concentratio n >=200 mg/dL plus symptoms is consistent with Diabetes Mellitus. Blood Urea Nitrogen 13 10 - 20 mg/dL 07/30/2024 4:17 PM EST [facility] Creatinine 1.01 0.80 - 1.50 mg/dL 07/30/2024 4:17 PM EST [facility] Sodium 141 135 - 145 mMol/L 07/30/2024 4:17 PM EST [facility] Potassium 3.4(L) 3.5 - 5.0 mMol/L 07/30/2024 4:17 PM [facility] Chloride 109(H) 98 - 107 mMol/L 07/30/2024 4:17 PM [facility] Carbon Dioxide 21(L) 22 - 31 mMol/L 07/30/2024 4:17 PM [facility] Anion Gap 11 5 - 15 mMol/L 07/30/2024 4:17 PM [facility] Calcium 7.9(L) 8.5 - 10.5 mg/dL 07/30/2024 4:17 PM [facility] Est Glomerular Filtration Rate - Male 79 mL/min/1. 73 m?? 07/30/2024 4:17 PM [facility] Comment: This patient's estimated [...] EST Jay Silverio MD CHEMISTRY ORDERABL ES [facility] [place] [address] * ECHO LMTD W CONTRAST W LMTD SPEC DOPP COLOR DOPP (07/30/2024 11:42 AM EST) Anatomical Region Laterality Modality Cardiac Other 07/30/2024 10:2 2 AM EST Narrative 07/30/2024 12:34 PM EST [address] [place] [address] ? Echocardiogram Report Name: KOREY MONTOYA ? Study Date: 07/30/2024 10:22 AMBP: 124/66 mmHg : 1950 ? Height: 168 cm ? Account: [id number] Age: 74 yrs ? Weight: 65 kg [...] Compared to the overnight study by the qualifications examiner fellow the impella position is stable. 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 Procedure Limited - 03902. Image enhancement Definity was used for both [...] Note Kathleen Banda MD - 07/30/2024 [address] [place] [address] Echocardiogram Report Name: KOREY MONTOYA Study Date: 410:22 AMBP: 124/66 mmHg : 1950 Height: 168 cm Account: [id number] Age: 74 yrs Weight: 65 kg Gender: [...] Compared to the overnight study by the qualifications examiner fellow the impella positionis stable. The global left ventricular systolic function has improvedpredominantly via recruitment outside the LAD territory which remains akinetic. Procedure Limited - 83781. Image enhancement Definity was used for both [...] - 199 mg/dL 07/30/2024 11:17 AM EST [facility] Comment:Supplemental ranges: <140 mg/dL before meals <180 mg/dL all other times of the day. Blood CAPILLARY BLOOD / Unknown 07/30/2024 11:17 AM EST 07/30/2024 11:17 AM EST Jay Silverio MD POINT OF CARE TEST ORDERABLES [facility] [place] [address] * (ABNORMAL) Blood Gas, Arterial POC (07/30/2024 8:16 AM EST) pH, Arterial 7.44 7.35 - 7.45 07/30/2024 8:17 AM EST [facility] PCO2, Arterial 29(L) 35 - 45 mmHg 07/30/2024 8:17 AM EST [facility] PO2, Arterial 109(H) 85 - 104 mmHg 07/30/2024 8:17 AM EST [facility] Bicarbonate, Arterial 19.4(L) 20.0 - 26.0 mmol/L 07/30/2024 8:17 AM [facility] Base Excess, Arterial -4.7(L) -3.0 - 3.0 mmol/L 07/30/2024 8:17 AM [facility] Hemoglobin, Arterial 12.2(L) 13.7 - 16.5 g/dL 07/30/2024 8:17 AM [facility] Oxyhemoglobin, Arterial 97.1(H) 94.0 - 97.0 % 07/30/2024 8:17 AM [facility] Carboxyhemoglob in, Arterial 1.0 % 07/30/2024 8:17 AM [facility] Comment: Nonsmokers: 0.5-1.5% COHB ?? Smokers: Variable ??but usually less than 10% ?? Toxic: 20-30% COHB ?? Lethal: Greater than 60% COHB Methemoglobin, Arterial 0.1 <=1.5 % 07/30/2024 8:17 AM [facility] Sodium, Arterial 132(L) 135 - 145 mmol/L 07/30/2024 8:17 AM [facility] Potassium, Arterial 3.9 3.5 - 5.0 mmol/L 07/30/2024 8:17 AM [facility] Chloride, Arterial 105 98 - 107 mmol/L 07/30/2024 8:17 AM [facility] Lactate, Arterial 1.2 0.5 - 2.2 mmol/L 07/30/2024 8:17 AM [facility] Fraction of Inspired Oxygen 21 % 07/30/2024 8:17 AM [facility] PF Ratio 519 Ratio 07/30/2024 8:17 AM [facility] Comment:PF ratio calculated using the non-temperature corrected pO2 result. IONIZED CALCIUM, ARTERIAL 1.15 1.15 - 1.33 mmol/L 07/30/2024 8:17 AM [facility] Blood ARTERIAL BLOOD / Unknown 07/30/2024 8:16 AM EST 07/30/2024 8:17 AM EST Jay Silverio MD POINT OF CARE TEST ORDERABLES [facility] [place] [address] * (ABNORMAL) Troponin - Single (07/30/2024 8:09 AM EST) Troponin-T, High Sensitivity 8,651(H) <=22 ng/L 07/30/2024 9:06 AM EST [facility] Comment: This patient's troponin T [...] troponin value can be found in the Counts Include [facility] Laboratory Test Catalog Troponin - [email or web address] Reference: [employer] [place] Definition of Myocardial Infarction. Journal of the [place] [employer] 2018;72:4415-1971 Blood VENOUS BLOOD SPECIMEN / Unknown Venipuncture / Unknown 07/30/2024 8:09 AM EST 07/30/2024 8:26 AM EST Jay Silverio MD CHEMISTRY ORDERABL ES Performing Organization Address City/[facility]/ZIP Co de Phone Number [facility] [place] [address] * POC, GLUCOSE (07/30/2024 7:40 AM EST) [facility] Glucometer, POC [phone] mg/dL 07/30/2024 7:40 AM [facility] Comment:Supplemental ranges: <140 mg/dL before meals <180 mg/dL all other times of the day. Blood CAPILLARY BLOOD / Unknown 07/30/2024 7:40 AM EST 07/30/2024 7:40 AM EST Jay Silverio MD POINT OF CARE TEST ORDERABLES [facility] [place] [address] * (ABNORMAL) CBC (with Diff) (07/30/2024 2:11 AM EST) [facility] White Blood Cell 11.25(H) 4.00 - 9.50 x10(3)/mc L 07/30/2024 2:33 AM [facility] Red Blood Cell 4.50(L) 4.58 - 5.54 x10(6)/mc L 07/30/2024 2:33 AM [facility] Hemoglobin 12.2(L) 13.7 - 16.5 g/dL 07/30/2024 2:33 AM [facility] Hematocrit 37.1(L) 40.5 - 48.5 % 07/30/2024 2:33 AM [facility] Mean Cell Volume 82.4(L) 82.9 - 93.1 fL 07/30/2024 2:33 AM [facility] Mean Cell Hemoglobin 27.1(L) 27.5 - 32.1 pg 07/30/2024 2:33 AM [facility] Mean Cell Hemoglobin Concentration 32.9 32.0 - 35.7 g/dL 07/30/2024 2:33 AM [facility] Platelet 166 145 - 357 x10(3)/mc L 07/30/2024 2:33 AM [facility] Mean Platelet Volume 10.6 7.6 - 12.9 fL 07/30/2024 2:33 AM [facility] RDW Standard Deviation 44.6 36.0 - 45.0 fL 07/30/2024 2:33 AM [facility] RDW coefficient of variation 14.6(H) 11.4 - 13.8 % 07/30/2024 2:33 AM [facility] NRBC% auto 0.0 % 07/30/2024 2:33 AM [facility] NRBC Absolute <0.01 <0.01 x10(3)/mc L 07/30/2024 2:33 AM [facility] Neutrophil % 88.9 % 07/30/2024 2:33 AM [facility] Neutrophil Absolute (ANC) - Automated 10.00(H) 1.70 - 6.10 x10(3)/mc L 07/30/2024 2:33 AM [facility] Lymph % 5.1 % 07/30/2024 2:33 AM [facility] Lymph Absolute 0.57(L) 0.90 - 3.20 x10(3)/mc L 07/30/2024 2:33 AM [facility] Monocyte % 5.4 % 07/30/2024 2:33 AM [facility] Monocyte Absolute 0.61 0.30 - 0.90 x10(3)/mc L 07/30/2024 2:33 AM [facility] Eos % 0.0 % 07/30/2024 2:33 AM [facility] Eos Absolute <0.04 0.00 - 0.40 x10(3)/mc L 07/30/2024 2:33 AM [facility] Basophil % 0.2 % 07/30/2024 2:33 AM [facility] Baso Absolute <0.04 0.00 - 0.10 x10(3)/mc L 07/30/2024 2:33 AM [facility] Immature Gran % 0.4 % 2:33 AM EST [facility] Immature Gran Absolute 0.05(H) 0.00 - 0.04 x10(3)/mc L 07/30/2024 2:33 AM [facility] Blood VENOUS BLOOD SPECIMEN / Unknown Venipuncture / Unknown 07/30/2024 2:11 AM EST 07/30/2024 2:22 AM EST Bridgette Stauffer MD HEMATOLOGY ORDERABLE S Performing Organization Address City/[facility]/ZIP Co de Phone Number [facility] [place] [address] * Magnesium (07/30/2024 2:11 AM EST) Pathologist [facility] Magnesium 1.01 0.69 - 1.07 mMol/L 07/30/2024 2:51 AM [facility] Blood VENOUS BLOOD SPECIMEN / Unknown Venipuncture / Unknown 07/30/2024 2:11 AM EST 07/30/2024 2:22 AM EST Bridgette Stauffer MD CHEMISTRY ORDERABLES Performing Organization Address City/[facility] Co de Phone Number [facility] [place] [address] * (ABNORMAL) Basic Metabolic Panel (07/30/2024 2:11 AM EST) Pathologist [facility] Glucose 190 65 - 199 mg/dL 07/30/2024 2:51 AM [facility] Comment:Glucose Concentratio n >=200 mg/dL plus symptoms is consistent with Diabetes Mellitus. Blood Urea Nitrogen 15 10 - 20 mg/dL 07/30/2024 2:51 AM [facility] Creatinine 0.88 0.80 - 1.50 mg/dL 07/30/2024 2:51 AM [facility] Sodium 135 135 - 145 mMol/L 07/30/2024 2:51 AM [facility] Potassium 4.9 3.5 - 5.0 mMol/L 07/30/2024 2:51 AM EST [facility] Chloride 105 98 - 107 mMol/L 07/30/2024 2:51 AM [facility] Carbon Dioxide 19(L) 22 - 31 mMol/L 07/30/2024 2:51 AM [facility] Anion Gap 11 5 - 15 mMol/L 07/30/2024 2:51 AM [facility] Calcium 7.7(L) 8.5 - 10.5 mg/dL 07/30/2024 2:51 AM [facility] Est Glomerular Filtration Rate - Male 91 mL/min/1. 73 m?? 07/30/2024 2:51 AM [facility] Comment: This patient's estimated [...] AM EST Bridgette Stauffer MD CHEMISTRY ORDERABLES [facility] [place] [address] * (ABNORMAL) Cooximetry, POC (07/30/2024 1:00 AM EST) pO2, Coox 28 mmHg 07/30/2024 1:03 AM [facility] Hemoglobin, Coox 12.7(L) 13.7 - 16.5 g/dL 07/30/2024 1:03 AM [facility] Oxyhemoglobin, Coox 54.9 % 07/30/2024 1:03 AM [facility] Carboxyhemoglo bin, Coox 1.0 % 07/30/2024 1:03 AM [facility] Comment: Nonsmokers: 0.5-1.5% COHB ?? Smokers: Variable ??but usually less than 10% ?? Toxic: 20-30% COHB ?? Lethal: Greater than 60% COHB Methemoglobin, Coox 0.0 <=1.5 % 07/30/2024 1:03 AM [facility] Blood (Mixed Venous) 07/30/2024 1:00 AM EST 07/30/2024 1:03 AM EST Jay Silverio MD POINT OF CARE TEST ORDERABLES Performing Organization Address City/State/[facility] Co de Phone Number [facility] [place] [address] * (ABNORMAL) Blood Gas, Arterial POC (07/30/2024 12:57 AM EST) pH, Arterial 7.38 7.35 - 7.45 07/30/2024 12:58 AM [facility] PCO2, Arterial 34(L) 35 - 45 mmHg 07/30/2024 12:58 AM [facility] PO2, Arterial 141(H) 85 - 104 mmHg 07/30/2024 12:58 AM [facility] Bicarbonate, Arterial 19.5(L) 20.0 - 26.0 mmol/L 07/30/2024 12:58 AM [facility] Base Excess, Arterial -5.6(L) -3.0 - 3.0 mmol/L 07/30/2024 12:58 AM [facility] Hemoglobin, Arterial 13.0(L) 13.7 - 16.5 g/dL 07/30/2024 12:58 AM [facility] Oxyhemoglobin, Arterial 98.4(H) 94.0 - 97.0 % 07/30/2024 12:58 AM [facility] Carboxyhemoglobin , Arterial 0.4 % 07/30/2024 12:58 AM [facility] Comment: Nonsmokers: 0.5-1.5% COHB ?? Smokers: Variable ??but usually less than 10% ?? Toxic: 20-30% COHB ?? Lethal: Greater than 60% COHB Methemoglobin, Arterial 0.1 <=1.5 % 07/30/2024 12:58 AM [facility] Sodium, Arterial 130(L) 135 - 145 mmol/L 07/30/2024 12:58 AM [facility] Potassium, Arterial 4.5 3.5 - 5.0 mmol/L 07/30/2024 12:58 AM [facility] Chloride, Arterial 104 98 - 107 mmol/L 07/30/2024 12:58 AM [facility] Lactate, Arterial 1.3 0.5 - 2.2 mmol/L 07/30/2024 12:58 AM [facility] Flow Rate 2.0 L/min 07/30/2024 12:58 AM [facility] IONIZED CALCIUM, ARTERIAL 1.12(L) 1.15 - 1.33 mmol/L 07/30/2024 12:58 AM [facility] Glucose, Arterial 184 65 - 199 mg/dL 07/30/2024 12:58 AM [facility] Comment:Glucose Concentratio n >=200 mg/dL plus symptoms is consistent with Diabetes Mellitus. Blood ARTERIAL BLOOD / Unknown 07/30/2024 12:57 AM EST 07/30/2024 12:58 AM EST Jay Silverio MD POINT OF CARE TEST ORDERABLES [facility] [place] [address] * (ABNORMAL) Troponin - Single (07/29/2024 10:31 PM EST) Troponin-T, High Sensitivity >10,000(H ) <=22 ng/L 07/29/2024 11:03 PM EST [facility] Comment: This patient's troponin T [...] troponin value can be found in the Counts Include [address] [facility] At [facility] Laboratory Test Catalog Troponin - [email or web address]-.testcatalog.org/catalogs/565/files/34161 Reference: [employer] [place] Definition of Myocardial Infarction. Journal of the [place] [employer] 2018;72:8501-5408 Blood VENOUS BLOOD SPECIMEN / Unknown Venipuncture / Unknown 07/29/2024 10:31 PM EST 07/29/2024 10:36 PM EST Yrn Ward MD CHEMISTRY ORDERABL ES [facility] [place] [address] * Potassium (07/29/2024 8:11 PM EST) Potassium 4.1 3.5 - 5.0 mMol/L 07/29/2024 8:52 PM EST [facility] Blood VENOUS BLOOD SPECIMEN / Unknown Venipuncture / Unknown 07/29/2024 8:11 PM EST 07/29/2024 8:16 PM EST Jay Silverio MD CHEMISTRY ORDERABL ES [facility] [place] [address] * (ABNORMAL) Troponin - Single (07/29/2024 8:11 PM EST) Troponin-T, High Sensitivity >10,000(H ) <=22 ng/L 07/29/2024 8:52 PM EST [facility] Comment: This patient's troponin T [...] troponin value can be found in the Counts Include [facility] Laboratory Test Catalog Troponin - [email or web address].testcatalog.org/catalogs/565/files/[email or web address] Reference: [employer] [place] Definition of Myocardial Infarction. Journal of the [place] [employer] 2018;72:8922-7452 Blood VENOUS BLOOD SPECIMEN / Unknown Venipuncture / Unknown 07/29/2024 8:11 PM EST 07/29/2024 8:16 PM EST Jay Silverio MD CHEMISTRY ORDERABL ES [facility] [place] [address] * (ABNORMAL) Phosphorus (07/29/2024 8:11 PM EST) Phosphorus 2.1(L) 2.5 - 4.5 mg/dL 07/29/2024 8:52 PM EST [facility] Blood VENOUS BLOOD SPECIMEN / Unknown Venipuncture / Unknown 07/29/2024 8:11 PM EST 07/29/2024 8:16 PM EST Jay Silverio MD CHEMISTRY ORDERABL ES Performing Organization Address City/[facility]/ZIP Co de Phone Number [facility] [place] [address] * POC, GLUCOSE (07/29/2024 8:09 PM EST) Glucometer, POC 142 65 - 199 mg/dL 07/29/2024 8:09 PM EST [facility] Comment:Supplemental ranges: <140 mg/dL before meals <180 mg/dL all other times of the day. Blood CAPILLARY BLOOD / Unknown 07/29/2024 8:09 PM EST 07/29/2024 8:09 PM EST Jay Silverio MD POINT OF CARE TEST ORDERABLES Performing Organization Address City/[facility]/ZIP Co de Phone Number [facility] [place] [address] * ABORH RECHECK (07/29/2024 6:43 PM EST) ABORH Recheck AB POSITIVE 07/29/2024 10:13 PM EST [facility] Blood VENOUS BLOOD SPECIMEN / Unknown Venipuncture / Unknown 07/29/2024 6:43 PM EST 07/29/2024 7:15 PM EST Jay Silverio MD BLOOD BANK LAB ORD ERABLES Performing Organization Address City/[facility]/ZIP Co de Phone Number [facility] [place] [place] [address] * POC, GLUCOSE (07/29/2024 5:57 PM EST) Glucometer, POC 166 65 - 199 mg/dL 07/29/2024 5:57 PM EST [facility] Comment:Supplemental ranges: <140 mg/dL before meals <180 mg/dL all other times of the day. Blood CAPILLARY BLOOD / Unknown 07/29/2024 5:57 PM EST 07/29/2024 5:57 PM EST Jay Silverio MD POINT OF CARE TEST ORDERABLES Performing Organization Address City/[facility]/ZIP Co de Phone Number [facility] [place] [address] * Type and screen ([facility]CGP/MAGALIE) (07/29/2024 5:56 PM EST) [facility] ABORH Type AB POSITIVE 07/29/2024 9:44 PM EST [facility] PATIENT HISTORY Not Found 07/29/2024 9:44 PM EST [facility] Expires at [id number] on: 08/01/2024 07/29/2024 9:44 PM EST [facility] ANTIBODY SCREEN AUTOMATED Negative 07/29/2024 9:44 PM EST [facility] T&S only valid at [facility] 07/29/2024 9:44 PM EST [facility] Blood VENOUS BLOOD SPECIMEN / Unknown Venipuncture / Unknown 07/29/2024 5:56 PM EST 07/29/2024 6:07 PM EST Narrative [facility] - 07/29/2024 9:44 PM EST This Type and Screen result is only valid at the [facility] Jay Silverio MD BLOOD BANK LAB ORD ERABLES Performing Organization Address City/[facility]/ZIP Co de Phone Number [facility] [place] [place] [address] * (ABNORMAL) Troponin - Single (07/29/2024 4:52 PM EST) [facility] Troponin-T, High Sensitivity >10,000(H ) <=22 ng/L 07/29/2024 5:25 PM EST [facility] Comment: This patient's troponin T [...] troponin value can be found in the Counts Include [facility] Laboratory Test Catalog Troponin - https://[email or web address].org/catalogs/565/[email or web address] Reference: [employer] [place] Definition of Myocardial Infarction. Journal of the [place] [employer] 2018;72:2370-7786 Blood VENOUS BLOOD SPECIMEN / Unknown Venipuncture / Unknown 07/29/2024 4:52 PM EST 07/29/2024 4:57 PM EST Jay Silverio MD CHEMISTRY ORDERABL ES Performing Organization Address City/State/[facility] [place] [address] * EKG 12 Lead (07/29/2024 4:21 PM EST) Ventricular rate 72 BPM MUSE SYSTEM Atrial Rate 72 BPM MUSE SYSTEM P-R Interval 168 ms MUSE SYSTEM QRS Duration 82 ms MUSE SYSTEM Q-T Interval 392 ms MUSE SYSTEM QTC Calculated (Bezet) 429 ms MUSE SYSTEM Calculated P [place] 71 degrees MUSE SYSTEM Calculated R [place] 77 degrees MUSE SYSTEM Calculated T [place] 28 degrees MUSE SYSTEM INTERPRETATION Sinus rhythm with Premature supraventricular complexes and Occasional Premature ventricular complexes Low voltage QRS 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) Lateral injury pattern ACUTE MD / STEMI Abnormal ECG When compared with [...] 7.45 07/29/2024 4:22 PM [facility] PCO2, Arterial 36 35 - 45 mmHg 07/29/2024 4:22 PM [facility] PO2, Arterial 71(L) 85 - 104 mmHg 07/29/2024 4:22 PM [facility] Bicarbonate, Arterial 20.4 20.0 - 26.0 mmol/L 07/29/2024 4:22 PM [facility] Base Excess, Arterial -4.8(L) -3.0 - 3.0 mmol/L 07/29/2024 4:22 PM [facility] Hemoglobin, Arterial 12.2(L) 13.7 - 16.5 g/dL 07/29/2024 4:22 PM [facility] Oxyhemoglobin, Arterial 93.8(L) 94.0 - 97.0 % 07/29/2024 4:22 PM [facility] Carboxyhemoglobin , Arterial 0.5 % 07/29/2024 4:22 PM [facility] Comment: Nonsmokers: 0.5-1.5% COHB ?? Smokers: Variable ??but usually less than 10% ?? Toxic: 20-30% COHB ?? Lethal: Greater than 60% COHB Methemoglobin, Arterial 0.3 <=1.5 % 07/29/2024 4:22 PM [facility] Sodium, Arterial 134(L) 135 - 145 mmol/L 07/29/2024 4:22 PM [facility] Potassium, Arterial 4.2 3.5 - 5.0 mmol/L 07/29/2024 4:22 PM [facility] Chloride, Arterial 107 98 - 107 mmol/L 07/29/2024 4:22 PM [facility] Lactate, Arterial 1.5 0.5 - 2.2 mmol/L 07/29/2024 4:22 PM [facility] Fraction of Inspired Oxygen 21 % 07/29/2024 4:22 PM [facility] PF Ratio 338 Ratio 07/29/2024 4:22 PM [facility] Comment:PF ratio calculated using the non-temperature corrected pO2 result. IONIZED CALCIUM, ARTERIAL 1.12(L) 1.15 - 1.33 mmol/L 07/29/2024 4:22 PM [facility] Glucose, Arterial 181 65 - 199 mg/dL 07/29/2024 4:22 PM [facility] Comment:Glucose Concentratio n >=200 mg/dL plus symptoms is consistent with Diabetes Mellitus. Blood ARTERIAL BLOOD / Unknown 07/29/2024 4:21 PM EST 07/29/2024 4:22 PM EST Jay Silverio MD POINT OF CARE TEST ORDERABLES Performing Organization Address City/[facility]/ZIP Co de Phone Number [facility] [place] [address] * POC, GLUCOSE (07/29/2024 4:19 PM EST) [facility] Signature Glucometer, POC 185 65 - 199 mg/dL 07/29/2024 4:19 PM [facility] Comment:Supplemental ranges: <140 mg/dL before meals <180 mg/dL all other times of the day. Blood CAPILLARY BLOOD / Unknown 07/29/2024 4:19 PM EST 07/29/2024 4:19 PM EST Jay Silverio MD POINT OF CARE TEST ORDERABLES [facility] [place] [address] * Blood culture (07/29/2024 4:08 PM EST) Blood Culture No growth at 120 hours 08/03/2024 5:01 PM EST [facility] Blood VENOUS BLOOD SPECIMEN / Unknown Venipuncture / Unknown 07/29/2024 4:08 PM EST 07/29/2024 4:15 PM EST Jay Silverio MD MICROBIOLOGY - BLO OD ORDERABLES Performing Organization Address City/[facility] Co de Phone Number [facility] [place] [address] * Blood culture (07/29/2024 4:08 PM EST) Blood Culture No growth at 120 hours 08/03/2024 5:01 PM EST [facility] Blood VENOUS BLOOD SPECIMEN / Unknown Venipuncture / Unknown 07/29/2024 4:08 PM EST 07/29/2024 4:26 PM EST Jay Silverio MD MICROBIOLOGY - BLO OD ORDERABLES Performing Organization Address [facility] Co de Phone Number [facility] [place] [address] * XR Chest One View (07/29/2024 2:30 PM EST) WORKSTATION ID [id number] RAD Anatomical Region Laterality Modality Chest N/A [...] who have questions please contact the health animal care attendant that requested your imaging first. ? Narrative [...] patients who have questions please contactthe health animal care attendant that requested your imaging first. Vahe Marvin MD IMG DX ORDERABLES * (ABNORMAL) APTT (07/29/2024 2:03 PM EST) Partial Thromboplastin Time >160(HHH) 25 - 37 sec 07/29/2024 2:56 PM EST [facility] Blood VENOUS BLOOD SPECIMEN / Unknown Venipuncture / Unknown 07/29/2024 2:03 PM EST 07/29/2024 2:13 PM EST Vahe Marvin MD HEMATOLOGY ORDERABLE S Performing Organization Address City/[facility]/ZIP Co de Phone Number [facility] [place] [address] * (ABNORMAL) Prothrombin Time (07/29/2024 2:03 PM EST) Prothrombin Time 14.2(H) 9.4 - 12.5 sec 07/29/2024 2:56 PM EST [facility] International Normalization Ratio 1.3 <=4.9 07/29/2024 2:56 PM EST [facility] Comment: An INR < 2.0 [...] MD HEMATOLOGY ORDERABLE S Performing Organization Address City/[facility]/ZIP Co de Phone Number [facility] [place] [address] * CRP, acute inflammation (07/29/2024 2:03 PM EST) C-Reactive Protein <3.0 <=4.9 mg/L 07/29/2024 2:52 PM EST [facility] Blood VENOUS BLOOD SPECIMEN / Unknown Venipuncture / Unknown 07/29/2024 2:03 PM EST 07/29/2024 2:14 PM EST Vahe Marvin MD CHEMISTRY ORDERABLES [facility] [place] [address] * Lipid Panel (Reflex Direct LDL) (07/29/2024 2:03 PM EST) [facility] Signature Cholesterol, Total 133 mg/dL 07/29/2024 2:52 PM [facility] Comment: Desirable: < 200 mg/dL Borderline High: 200 - 239 mg/dL High: > or = 240 mg/dL Triglyceride 45 mg/dL 07/29/2024 2:52 PM [facility] Comment: Normal: <150 mg/dL Borderline High: 150-199 mg/dL High: 200-499 mg/dL Very High: > or =500 mg/dL HDL Cholesterol 58 mg/dL 2:52 PM [facility] Comment:Males: High Risk: <4 0 mg/dL LDL Cholesterol 64 mg/dL 4 2:52 PM [facility] Comment: Desirable: <100 mg/dL Above Desirable: 100-129 mg/dL Borderline High: 130-159 mg/dL High: 160-189 mg/dL Very High: > or =190 mg/dL Note: LDL calculation updated to the NIH LDL formula as of 04/15/2024 Non-HDL Cholesterol 75 mg/dL 07/29/2024 2:52 PM [facility] Comment: Desirable: <130 mg/dL Above Desirable: 130-159 mg/dL Borderline High: 160-189 mg/dL High: 190-219 mg/dL Very High: > or = 220 mg/dL Blood VENOUS BLOOD SPECIMEN / Unknown Venipuncture / Unknown 07/29/2024 2:03 PM EST 07/29/2024 2:14 PM EST Narrative [facility] - 07/29/2024 2:52 PM EST [...] ACC/AHA Guidelines (most recently Rolf et [facility]. [facility] 06/15/22): * For individuals with [...] Marvin MD CHEMISTRY ORDERABLES Performing Organization Address City/[facility]/ZIP Co de Phone Number [facility] [place] [address] * TSH Pine (07/29/2024 2:03 PM EST) Thyroid Stimulating Hormone 0.70 0.27 - 4.20 mcIU/mL 07/29/2024 2:52 PM EST [facility] Blood VENOUS BLOOD SPECIMEN / Unknown Venipuncture / Unknown 07/29/2024 2:03 PM EST 07/29/2024 2:14 PM EST Vahe Marvin MD CHEMISTRY ORDERABLES Performing Organization Address [facility] Co de Phone Number [facility] [place] [address] * Hemoglobin A1c (07/29/2024 2:03 PM EST) Hemoglobin A1c 5.3 4.3 - 5.6 % 07/29/2024 2:41 PM EST [facility] Comment: Per ADA guidelines, without [...] red blood cell turnover may not be enrollment eligibility representative of glycemic control. Reference Interval: 4.3 - 5.6% 5.7 - 6.4%: Consistent with prediabetes >=6.5%: Consistent with diagnosis of diabetes mellitus Estimated Average Glucose 07/29/2024 2:41 PM EST [facility] Comment:Estimated Average Gl ucose not appropriate for patients over 70 years of age. Blood VENOUS BLOOD SPECIMEN / Unknown Venipuncture / Unknown 07/29/2024 2:03 PM EST 07/29/2024 2:[address] [facility] - 07/29/2024 2:41 PM EST Estimated average glucose (eAG) is calculated from the equation described in: Quinten ALVES, Rikki J, [place] R, et al. ??Translating the A1C assay into estimated average glucose values. ??Diabetes Care 2008:31(8):7769-8830. Additional resources are available on the ADA website (diabetes.org). Vahe Marvin MD CHEMISTRY ORDERABLES [facility] [place] [address] * (ABNORMAL) CBC (with Diff) (07/29/2024 2:03 PM EST) White Blood Cell 19.50(H) 4.00 - 9.50 x10(3)/mc L 07/29/2024 2:18 PM EST [facility] Red Blood Cell 4.81 4.58 - 5.54 x10(6)/mc L 07/29/2024 2:18 PM [facility] Hemoglobin 13.1(L) 13.7 - 16.5 g/dL 07/29/2024 2:18 PM [facility] Hematocrit 40.1(L) 40.5 - 48.5 % 07/29/2024 2:18 PM [facility] Mean Cell Volume 83.4 82.9 - 93.1 fL 07/29/2024 2:18 PM [facility] Mean Cell Hemoglobin 27.2(L) 27.5 - 32.1 pg 07/29/2024 2:18 PM [facility] Mean Cell Hemoglobin Concentration 32.7 32.0 - 35.7 g/dL 07/29/2024 2:18 PM [facility] Platelet 236 145 - 357 x10(3)/mc L 07/29/2024 2:18 PM [facility] Mean Platelet Volume 10.6 7.6 - 12.9 fL 07/29/2024 2:18 PM [facility] RDW Standard Deviation 43.7 36.0 - 45.0 fL 07/29/2024 2:18 PM [facility] RDW coefficient of variation 14.3(H) 11.4 - 13.8 % 07/29/2024 2:18 PM [facility] NRBC% auto 0.0 % 07/29/2024 2:18 PM [facility] NRBC Absolute <0.01 <0.01 x10(3)/mc L 07/29/2024 2:18 PM [facility] Neutrophil % 93.6 % 07/29/2024 2:18 PM [facility] Neutrophil Absolute (ANC) - Automated 18.28(H) 1.70 - 6.10 x10(3)/mc L 07/29/2024 2:18 PM [facility] Lymph % 2.7 % 07/29/2024 2:18 PM [facility] Lymph Absolute 0.52(L) 0.90 - 3.20 x10(3)/mc L 07/29/2024 2:18 PM [facility] Monocyte % 2.9 % 07/29/2024 2:18 PM [facility] Monocyte Absolute 0.56 0.30 - 0.90 x10(3)/mc L 07/29/2024 2:18 PM [facility] Eos % 0.0 % 07/29/2024 2:18 PM [facility] Eos Absolute <0.04 0.00 - 0.40 x10(3)/mc L 07/29/2024 2:18 PM [facility] Basophil % 0.3 % 07/29/2024 2:18 PM [facility] Baso Absolute 0.05 0.00 - 0.10 x10(3)/mc L 07/29/2024 2:18 PM [facility] Immature Gran % 0.5 % 2:18 PM [facility] Immature Gran Absolute 0.09(H) 0.00 - 0.04 x10(3)/mc L 07/29/2024 2:18 PM EST [facility] Blood VENOUS BLOOD SPECIMEN / Unknown Venipuncture / Unknown 07/29/2024 2:03 PM EST 07/29/2024 2:13 PM EST Vahe Marvin MD HEMATOLOGY ORDERABLE S Performing Organization Address City/[facility]/ZIP Co de Phone Number [facility] [place] [address] * Phosphorus (07/29/2024 2:03 PM EST) Phosphorus 2.5 2.5 - 4.5 mg/dL 07/29/2024 2:52 PM EST [facility] Blood VENOUS BLOOD SPECIMEN / Unknown Venipuncture / Unknown 07/29/2024 2:03 PM EST 07/29/2024 2:14 PM EST Vahe Marvin MD CHEMISTRY ORDERABLES Performing Organization Address [facility] Co de Phone Number [facility] [place] [address] * Magnesium (07/29/2024 2:03 PM EST) Magnesium 0.70 0.69 - 1.07 mMol/L 07/29/2024 2:52 PM EST [facility] Blood VENOUS BLOOD SPECIMEN / Unknown Venipuncture / Unknown 07/29/2024 2:03 PM EST 07/29/2024 2:14 PM EST Vahe Marvin MD CHEMISTRY ORDERABLES Performing Organization Address [facility] Co de Phone Number [facility] [place] [address] * (ABNORMAL) Comprehensive metabolic panel (07/29/2024 2:03 PM EST) Glucose 243(H) 65 - 199 mg/dL 07/29/2024 3:11 PM [facility] Comment:Glucose Concentratio n >=200 mg/dL plus symptoms is consistent with Diabetes Mellitus. Blood Urea Nitrogen 13 10 - 20 mg/dL 07/29/2024 3:11 PM [facility] Creatinine 0.88 0.80 - 1.50 mg/dL 07/29/2024 3:11 PM [facility] Sodium 138 135 - 145 mMol/L 07/29/2024 3:11 PM [facility] Potassium 3.6 3.5 - 5.0 mMol/L 07/29/2024 3:11 PM [facility] Chloride 104 98 - 107 mMol/L 07/29/2024 3:11 PM [facility] Carbon Dioxide 19(L) 22 - 31 mMol/L 07/29/2024 3:11 PM [facility] Anion Gap 15 5 - 15 mMol/L 07/29/2024 3:11 PM [facility] Calcium 8.0(L) 8.5 - 10.5 mg/dL 07/29/2024 3:11 PM [facility] Protein, Total 6.0(L) 6.1 - 8.0 g/dL 07/29/2024 3:11 PM [facility] Albumin 3.6 3.2 - 5.2 g/dL 07/29/2024 3:11 PM [facility] Aspartate Aminotransferase 07/29/2024 3:11 PM [facility] Comment:Unable to report due to hemolysis. Alanine Aminotransferase 56(H) 0 - 55 unit/L 07/29/2024 3:11 PM [facility] Alkaline Phosphatase 58 40 - 130 unit/L 07/29/2024 3:11 PM [facility] Bilirubin, Total 0.5 <=1.3 mg/dL 07/29/2024 3:11 PM [facility] Est Glomerular Filtration Rate - Male 91 mL/min/1. 73 m?? 07/29/2024 3:11 PM EST [facility] Comment: This patient's estimated GFR [...] PM EST Vahe Marvin MD CHEMISTRY ORDERABLES [facility] [place] [address] * (ABNORMAL) Troponin - Single (07/29/2024 2:03 PM EST) Troponin-T, High Sensitivity >10,000(H ) <=22 ng/L 07/29/2024 2:52 PM EST [facility] Comment: This patient's troponin T [...] troponin value can be found in the Counts Include [facility] Laboratory Test Catalog Troponin - https://one-.testcatalog.org/catalogs/565/files/43074 Reference: Fourth [place] Definition of Myocardial Infarction. Journal of the [place] [employer] 2018;72:6869-6969 Blood VENOUS BLOOD SPECIMEN / Unknown Venipuncture / Unknown 07/29/2024 2:03 PM EST 07/29/2024 2:14 PM EST Vahe Marvin MD CHEMISTRY ORDERABLES [facility] [place] [address] * (ABNORMAL) Blood Gas, Venous POC (07/29/2024 2:01 PM EST) pH, Venous 7.30(L) 7.32 - 7.42 07/29/2024 2:02 PM EST [facility] PCO2, Venous 42 38 - 58 mmHg 07/29/2024 2:02 PM [facility] PO2, Venous 39 16 - 65 mmHg 07/29/2024 2:02 PM [facility] Bicarbonate, Venous 20.1(L) 22 - 31 mmol/L 07/29/2024 2:02 PM [facility] Base Excess, Venous -6.4(L) 1.9 - 4.5 mmol/L 07/29/2024 2:02 PM [facility] Hemoglobin, Venous 14.2 13.7 - 16.5 g/dL 07/29/2024 2:02 PM [facility] Oxyhemoglobin, Venous 69.3 % 07/29/2024 2:02 PM [facility] Carboxyhemoglobin , Venous 0.8 % 07/29/2024 2:02 PM [facility] Comment: Nonsmokers: 0.5-1.5% COHB ?? Smokers: Variable ??but usually less than 10% ?? Toxic: 20-30% COHB ?? Lethal: Greater than 60% COHB Methemoglobin, Venous 0.3 <=1.5 % 07/29/2024 2:02 PM EST [facility] Sodium, Venous 137 135 - 145 mmol/L 07/29/2024 2:02 PM EST [facility] Potassium, Venous 3.6 3.5 - 5.0 mmol/L 07/29/2024 2:02 PM EST [facility] Chloride, Venous 103 98 - 107 mmol/L 07/29/2024 2:02 PM EST [facility] Glucose, Venous 229(H) 65 - 199 mg/dL 07/29/2024 2:02 PM EST [facility] Comment:Glucose Concentratio n >=200 mg/dL plus symptoms is consistent with Diabetes Mellitus. Lactate, Venous 3.1(H) 0.5 - 2.2 mmol/L 07/29/2024 2:02 PM [facility] Ionized Calcium, Venous 1.11(L) 1.15 - 1.33 mmol/L 07/29/2024 2:02 PM EST [facility] Blood VENOUS BLOOD SPECIMEN / Unknown 07/29/2024 2:01 PM EST 07/29/2024 2:02 PM EST Vahe Marvin MD POINT OF CARE TEST O RDERABLES Performing Organization Address City/State/[facility] Co de Phone Number [facility] [place] [address] * CARDIAC CATHETERIZATION (07/29/2024 1:20 PM EST) Anatomical Region Laterality Modality Other Narrative 07/29/2024 2:02 PM EST ?[facility] ? Cardiac Catheterization/Intervention Report ? Patient Name: Korey Montoya. ? Procedure Date: 07/29/2024 ? A #: [id number] ? Primary Physician: Shavonne, Vahe S ? Case #: [id number] ? File Name: [id number] ? Catheterization Order Number: [id number] ? [facility] ? Final Report [place], [place] ? Patient Name: ? Korey P. Montoya ?ID#: ?[id number] ? : ?1950 ? Procedure Date: ? July 29, 2024 ?Case #: ? [id number] ? Room: ? 5 ? Case Physician: [...] procedure was Emergent. The indication for ?the label designer visit is ACS less than or equal [...] 3.5 guiding catheter and a 3.5 Fr [place] [facility] [place] [address] ??20 Mhz using ?Manual pullback. ??Imaging [...] A premounted 3.00 x 22 mm Jeison Preston (LOW) was deployed ? with a maximum [...] atmospheres. ??A premounted 3.00 x 08 mm Frakes Preston (LOW) ? was deployed with a maximum [...] dose administered prior to arrival in the label designer. ?Recommended anti-platelet/anti-thrombotic regimen: ?Start aspirin 81 mg daily now and continue for 12 months then stop. ?Start clopidogrel 75 mg daily now and continue for indefinitely. ?These recommendations are made at the time of the intervention. Patient ?and provider preferences or a changing clinical situation may require ?modification of this regimen. Consult [facility] Interventional Cardiology for ?questions. ?The 1 year [...] able ?to start weaning his inotropes/vasopressors. A [place] Colette catheter was ?placed demonstrating improvement in [...] ventricular assist device insertion, right heart ?catheterization, [place] (flow directed cath) insertion, access site ?angiography, vascular ultrasound, venous line / sheath insert and vascular ?closure device. ? Vahe Marvin M.D. ? Electronically Signed by: Vahe Marvin M.D. ? Report Finalized: 07/29/2024 ??13:55 ? Report Last Ammended: 07/30/2024 ??10:15 ? Procedure Note Vahe Marvin MD - 07/30/2024 [facility] Cardiac Catheterization/Intervention Report Patient Name: Korey MontoyaToby Procedure Date: 07/29/2024 A #: [id number] Primary Physician: Vahe Marvin Case #: [id number] File Name: [id number] Catheterization Order Number: [id number] [facility] FinalReport [place], [place] Patient Name: Korey Montoya ID#:[id number] :1950 Procedure Date: July 29, 2024 Case [...] diagnostic procedure was Emergent. Theindication for the label designer visit is ACS less than or equal [...] 3.5 guiding catheter and a 3.5 Fr [place] [facility] [place] [address] 20 Mhzusing Manual pullback. Imaging was [...] The priority for the procedure was Emergent.[facility] the procedure was [...] The lesion was predilated with a 2.00mm [id number] MM balloon with a maximum inflation pressure of 12atmospheres. A premounted 3.00 x 22 mm Frakes Preston (LOW) wasdeployed with a maximum inflation pressure [...] atmospheres. A premounted 3.00 x 08 mm Frakes Preston(LOW) was deployed with a maximum inflation pressure [...] dose administered prior to arrival in the label designer. Recommended anti-platelet/anti-thrombotic regimen: Start aspirin 81 mg daily now and continue for 12 months then stop. Start clopidogrel 75 mg daily now and continue for indefinitely. These recommendations are made at the time of the intervention.Patient and provider preferences or a changing clinical situation mayrequire modification of this regimen. Consult [facility] Interventional Cardiologyfor questions. The 1 year bleeding [...] wereable to start weaning his inotropes/vasopressors. A [place] Colette catheterwas placed demonstrating improvement in his [...] ventricular assist device insertion, right heart catheterization, [place] (flow directed cath) insertion, access site angiography, [...] mmol/L 07/30/2024 7:30 AM [facility] Potassium, POC 3.4(L) 3.5 - 5.0 mmol/L 07/30/2024 7:30 AM [facility] pH, POC 7.33(L) 7.35 - 7.45 07/30/2024 7:30 AM [facility] Ionized Calcium, POC 1.13(L) 1.15 - 1.33 mmol/L 07/30/2024 7:30 AM [facility] pCO2, POC 38 35 - 45 mmHg 07/30/2024 7:30 AM [facility] pO2, POC 94 85 - 104 mmHg 07/30/2024 7:30 AM [facility] Base Excess, POC -6.0(L) -3.0 - 3.0 mmol/L 07/30/2024 7:30 AM [facility] Hematocrit, POC 39.0(L) 40.5 - 48.5 %PCV 07/30/2024 7:30 AM [facility] Hemoglobin, POC 13.3(L) 13.7 - 16.5 g/dL 07/30/2024 7:30 AM [facility] Comment:The calculation of h emoglobin from hematocrit assumes a normal MCHC. Bicarbonate, POC 19.8(L) 20.0 - 26.0 mmol/L 07/30/2024 7:30 AM [facility] Carbon Dioxide, POC 21(L) 22 - 31 mmol/L 07/30/2024 7:30 AM [facility] Blood VENOUS BLOOD SPECIMEN / Unknown 07/29/2024 12:46 PM EST 07/30/2024 7:30 AM EST Vahe Marvin MD POINT OF CARE TEST O RDERABLES [facility] [place] [address] * (ABNORMAL) BLOOD GAS, POC (07/29/2024 12:12 PM EST) Sodium, POC 135 135 - 145 mmol/L 07/30/2024 7:30 AM [facility] Potassium, POC 3.8 3.5 - 5.0 mmol/L 07/30/2024 7:30 AM [facility] pH, POC 7.27(LLL) 7.35 - 7.45 07/30/2024 7:30 AM [facility] Ionized Calcium, POC 1.14(L) 1.15 - 1.33 mmol/L 07/30/2024 7:30 AM [facility] pCO2, POC 43 35 - 45 mmHg 07/30/2024 7:30 AM [facility] pO2, POC 131(H) 85 - 104 mmHg 07/30/2024 7:30 AM [facility] Base Excess, POC -7.0(L) -3.0 - 3.0 mmol/L 07/30/2024 7:30 AM [facility] Hematocrit, POC 36.0(L) 40.5 - 48.5 %PCV 07/30/2024 7:30 AM [facility] Hemoglobin, POC 12.2(L) 13.7 - 16.5 g/dL 07/30/2024 7:30 AM [facility] Comment:The calculation of h emoglobin from hematocrit assumes a normal MCHC. Bicarbonate, POC 19.7(L) 20.0 - 26.0 mmol/L 07/30/2024 7:30 AM [facility] Carbon Dioxide, POC 21(L) 22 - 31 mmol/L 07/30/2024 7:30 AM [facility] Blood VENOUS BLOOD SPECIMEN / Unknown 07/29/2024 12:12 PM EST 07/30/2024 7:30 AM EST Vahe Marvin MD POINT OF CARE TEST O RDERABLES [facility] [place] [address] documented in this encounter Visit Diagnoses Diagnosis [...] off of anti-Xa levels per the [facility] Anti-Xa Algorithm and inform the ECMO attending. [...] PM EST 20 mEq 100 mL/ hr [facility] Bag 07/30/2024 9:17 PM EST 20 mEq [...] Routine documented in this encounter Care Teams Hoisting Engineer Pile Driving Relationship Specialty Start Date End Date Alexia Mtz APRN [address] [place] [id number] PCP - General Family Medicine 07/30/24 documented as of this encounter
--- OUTSIDE RECORDS SUMMARY | 2024-08-29 10:29 | XMS_ITS | Encounter Summary ---
[place] [address] Care Team Providers Care Child Care Associate Teacher Name Role Phone Alexia Mtz FIRST LINE SUPERVISOR Primary Care Provider [phone] Reason for Visit * Auth/Cert (Routine) Specialty Diagnoses / Procedures Referred By Theodore t Referred To Contact Diagnoses STEMI (ST elevation myocardial infarction) STEMI Procedures ER Vahe Lopez MD [facility] [place] [address] [facility] Referral ID Status Reason Start Date Expiration Date Visits Re quested Visits Authorized [id number] 1 1 Encounter Details Date Type Department Care Team (Late st Contact Info) Description 07/31/2024 4:45 PM EST Anesthesia Event [place] [address] Venkatesh Mauricio MD [facility] [place] [address] Anesthesia Record Procedure Summary Procedure Name Responsible [...] femoral vein; hemodynamic monitoring; 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 No 07/30/2024 IPV Inpatient Questions [...] AM EST Office Visit Cardiology at [address] [phone] Mushtaq Murphy APRN documented as of this encounter Visit Diagnoses Not on filedocumented in this encounter Care Teams Child Care Associate Teacher Relationship Specialty Start Date End Date Alexia Mtz, [address] [place] [address] PCP - General Family Medicine 07/30/24 documented as of this encounter
--- OUTSIDE RECORDS SUMMARY | 2024-08-29 10:30 | XMS_ITS | Encounter Summary ---
Author Organization [facility] Address [facility] [place] [address] Care Team Providers Care Vba Programmer Name Role Phone Yoel Artis Ute ALCALA Primary Care Provider [phone] Encounter Details Date Type Department Care Team (Late st Contact Info) Description 07/29/2024 [place] [address] Susannah Watts PA [facility] [place] [address] Social History Tobacco Use Types Packs/Day Years Used Date Smoking Tobacco: Former Cigarettes Smokeless Tobacco: Never Alcohol Use Standard Drinks/Week Comments Not Currently 0 (1 standard drink = 0.6 oz pur e alcohol) [facility] Utilities Answer Date Recorded In the past 12 months has [employer], gas, oil, or water [employer] threatened to shut off services in your [...] any time in the past 12 m [facility], were you homeless or living in [...] AM EST Office Visit Cardiology at [address] [phone] Mushtaq Murphy APRN documented as of this encounter Procedures Procedure Name Priority Date/Time Associated Diagnosis Comments ECHOCARDIOGRAM TRANSTHORACIC Routine 07/30/2024 1:41 AM EST documented in this encounter Results * Echocardiogram Transthoracic (07/30/2024 1:41 AM EST) Anatomical Region Laterality Modality Cardiac Other 07/30/2024 1:41 AM EST Narrative 07/30/2024 8:23 AM EST [address] [place] [address] ? Echocardiogram Report Name: KOREY BERMUDEZ ? Study Date: 07/30/2024 01:41 AM : 1950 ? Height: 168 cm Age: 74 yrs ? Weight: 5.9 kg Gender: Male ?BSA: 0.63 m2 Performed By: Beatris Ching MD Reason For Study: STEMI, [place] History: ASCVD, HTN, HLD Interpreting Fellow: Beatris Ching. Interpretation Summary This is a limited study performed by a fellow patrol conductor to evaluate for cardiogenic shock with impella [...] study available for comparison. Procedure Limited - 71682. Suboptimal quality. There is sinus bradycardia. Left [...] Note Kathleen Banda MD - 07/30/2024 [address] [place] [address] Echocardiogram Report Name: LARA KOREY Kyrie Study Date: 07/30/2024 01:41AM : 1950 Height: 168 cm Age: 74 yrs Weight: 5.9 kg Gender: Male BSA: 0.63 m2 Performed By: Beatris Ching MD Reason For Study: STEMI, VT History: ASCVD, HTN, HLD Interpreting Fellow: Beatris Ching. Interpretation Summary This is a limited study performed by a fellow patrol conductor to evaluate forcardiogenic shock with impella in. [...] study available for comparison. Procedure Limited - 32966. Suboptimal quality. There is sinus bradycardia. Left [...] on filedocumented in this encounter Care Teams Vba Programmer Relationship Specialty Start Date End Date Yoel Artis APRN [address] [place] [id number] PCP - General Internal Medicine 11/18/22 07/29/24 documented as of this encounter
--- OUTSIDE RECORDS SUMMARY | 2024-08-29 10:30 | XMS_ITS | Encounter Summary ---
[place] [address] Care Team Providers Care Real Estate Paralegal Name Role Phone Yoel Artis Ute ALCALA Primary Care Provider [phone] Reason for Visit * Auth/Cert (Routine) Specialty Diagnoses / Procedures Referred By Theodore t Referred To Contact Diagnoses STEMI (ST elevation myocardial infarction) STEMI Procedures ER IPI Vahe Marvin MD [facility] [place] [address] [facility] Referral ID Status Reason Start Date Expiration Date Visits Re quested Visits Authorized [id number] 1 1 Encounter Details Date Type Department Care Team (Late st Contact Info) Description 07/29/2024 12:00 PM EST - 07/29/2024 12:54 PM EST Surgery [place] [address] Vahe Marvin MD [facility] [place] [address] CARDIAC CATHETERIZATION Social History Tobacco Use Types Packs/Day Years Used Date Smoking Tobacco: Former Cigarettes Smokeless Tobacco: Never Alcohol Use Standard Drinks/Week Comments Not Currently 0 (1 standard drink = 0.6 oz pur e alcohol) [facility] Utilities Answer Date Recorded In the past 12 months has [email or web address] electric, gas, oil, or water company threatened [...] time in the past 12 m [facility], were you homeless or living in [...] Korey Montoya Patient Age: 74 y.o. Language: Citizen Of [place] Race: White Ethnicity: Not nor Admit date: [...] please contact your inpatient physician through the [facility] . Issues afterhours and on weekends will [...] EKG. Patient transferred via air ambulance to [facility] on 07/29 for LHC and LOW to [...] EKG. Was transferred via air ambulance to [facility] for further management and LHC demonstrated 100% occlusion. No significant RCA, LMCA, or LCX disease. LOW placed in LAD with some residual distal disease meriting placement of overlapping distal stent. TTE showed apical akinesis and inferior hypokinesis with EF 20%. RHC showed elevated filling pressures. Impella placed and P-level 6 at time of transfer to [facility]. CI initially 1.97, improved to 2.2 [...] the next year. Access was via right PADDER CUSHION and this sitewas clean, dry and intact [...] for Chest pain. Replaces: nitroGLYcerin 400 mcg/spray [place], Non-Aerosol 0.4 mg Quantity: 90 tablet Refills: [...] Refills: 0 STOPPED Medications nitroGLYcerin 400 mcg/spray [place], Non-Aerosol Commonly known as: NITROLINGUAL Replaced by: [...] of one year. After this time, your operations support manager will determine if you need to continue [...] away. Stay on the phone. The emergency voyage management system operator will tell you what to do. [...] has weakened. You were started on abeta elivs called metoprolol which will help reduce workload [...] appointments: During 8am-5pm Tuesday through Tuesday call [phone] to speak with a nurse in the cardiology clinic All other times call [phone] and ask to speak to the tire bladder maker reservations and ticketing agent. Follow up Appointments: PCP Alexia Mtz, MACHINIST GENERAL [phone]. Please call to establish a follow up appointment within 1-2 weeks of discharge. Cardiology. Referral to heart failure has been sent. General Instructions None Future Appointments and Orders Future Orders Complete By Expires Referral to Cardiac Rehab [[id number] Custom] As directed Process Instructions: If no progress note charted, please enter Clinical details in comments. Scheduling Instructions: Questions: My question or request is: STEMI, PCI- cardiac rehab at [facility] Referral to Cardiology [REF12 Custom] As [...] of one year. After this time, your operations support manager will determine if you need to continue [...] away. Stay on the phone. The emergency voyage management system operator will tell you what to do. [...] appointments: During 8am-5pm Tuesday through Tuesday call [phone] to speak with a nurse in the cardiology clinic All other times call [phone] and ask to speak to the tire bladder maker reservations and ticketing agent. Follow up Appointments: PCP Alexia Mtz, MACHINIST GENERAL [phone]. Please call to establish a follow up [...] EKG. Patient transferred via air ambulance to [facility] on 07/29 for LHC and LOW to LAD for 100% occlusion Social History: Pt lives with his in a 1 level home with 2 NAOMI. 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 He [...] Total time: 35 (tef) minutes Time IN/OUT: 2229-2839 ZAIDA DUBOSE PT Pager: [phone] Physical Therapy Inpatient Rehabilitation Department * Yrn Velazquez MD - 08/03/2024 10:38 AM EST CV HOSPITALIST 2 - [facility] DAILY PROGRESS NOTE Page [phone] to reach a provider 04/04 Admit Date: [...] or before 29-JUL-2024) Lateral injury pattern ACUTE AR / STEMI Abnormal ECG When compared with [...] Compared to the overnight study by the reservations and ticketing agent fellow the impella position is stable. 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 [facility] 07/29/24 Conclusions: * One vessel coronary artery disease (LAD) * Mild pulmonary hypertension * Elevated pulmonary capillary wedge pressure * Successful stent insertion of the proximal LAD lesion * See Dual Antiplatelet (DAPT) Recommendations above * Successful impella placement for cardiogenic shock. Telemetry: I have personally reviewed and interpreted the telemetry from the last 24 hours. [facility] ASSESSMENT: Korey Montoya is a 74 y.o. male w/ PMH of hypertension, HLD, and BPH who presents for chief concern of chest pain after being found to have ST elevations on EKG. Patient transferred via air ambulance to [facility] on 07/29 for LHC and LOW to [...] be determined OT: PCP Alexia Mtz, FREDRICK [phone] * Zaida Dubose, PT - 08/02/2024 2:08 PM EST Physical Therapy Evaluation Patient profile: Korey Montoya is a 74 y.o. male w/ PMH of hypertension, HLD, and BPH who presents for chief concern of chest pain after being found to have ST elevations on EKG. Patient transferred via air ambulance to [facility] on 07/29 for LHC and LOW to LAD for 100% occlusion Social History: Pt lives with his in a 1 level home with 2 NAOMI. 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 He drives. home to assist as needed. Precautions/Special Considerations: At risk to fall; recent STEMI Mobility and Positioning Recommendations: OOB to chair with 1 cg assist; rolling walker Pt to ambulate 3-4x/daily with 1 assist; walker or trial without device Please encourage up to chair for meal times as able. Pt seen for evaluation today in the [facility]. Pt in the bed at start of [...] Total time: 37 (eval) minutes Time IN/OUT: [id number] ZAIDA DUBOSE PT Pager: [phone] Physical Therapy Inpatient Rehabilitation Department * Gagan [...] EKG. Patient transferred via air ambulance to [facility] on 07/29 for LHC and LOW to LAD for 100% occlusion. TTE showed apical akinesis and inferior hypokinesis with EF 20%. RHC showed elevated filling pressures. Impella placed and P-level 6 at time of transfer to [facility]. CI initially 1.97, improved to 2.2 [...] PCP: Alexia Mtz APRN PCP phone number: [phone] Date of Admission: 07/29/2024 ( Hospital Day 4 days ) Attending:Bridgette Stauffer MD ID: Korey Montoya is a 74 y.o. male w/ PMH of hypertension, HLD, and BPH on Hospital Day4 for chief concern of chest pain after being found to have ST elevations on EKG. Patient transferred via air ambulance to [facility] on 07/29 for LHC and LOW to LAD for 100% occlusion. 24 Hour Events/Subjective: Yesterday: - Amiodarone and dobutamine discontinued, Thoams off dobutamine was 2.8 --PA cath and arterial line removes Overnight: - NAEO This AM: - feeling well this AM, denies chest pain or dyspnea, is feeling more hungry today and excited to be able to sit up ABG (Arterial Blood Gas) Recent Labs 07/31/24 0829 07/30/24 0816 07/30/24 0057 07/29/24 1621 PHART 7.48* 7.44 7.38 7.37 KWL5IUK 29* 29* 34* 36 PO2ART 71* 109* 141* 71* GQH6YHA 20.6 19.4* 19.5* 20.4 VBG (Venous Blood Gas) Recent Labs 07/29/24 1401 PHVEN 7.30* PO2VEN 39 TRC4VIS 20.1* Mixed Venous Sat No results for input(s): S7GFJB5 in the last 168 hours. Objective: Vitals [...] 07/29/24 1621 PHART 7.48* 7.44 7.38 7.37 JFC5IHS 29* 29* 34* 36 PO2ART 71* 109* 141* 71* AOP5ATX 20.6 19.4* 19.5* 20.4 VBG (Venous Blood Gas) Recent Labs 07/29/24 1401 PHVEN 7.30* PO2VEN 39 PTT2XXY 20.1* Mixed Venous Sat No results for input(s): Y2FJEZ9 in the last 168 hours. Microbiology: Microbiology Results (Last 30 days) Procedure Component Value Units Date/Time Blood culture [[id number]] Collected: 07/29/24 160 Lab Status: Preliminary result Specimen: Blood, Venous Updated: 08/01/24 170 Blood Culture No growth at 72 hours Blood culture [[id number]] Collected: 07/29/241607 Lab Status: Preliminary result Specimen: Blood, Venous Updated: 08/01/24 170 Blood Culture No growth at 72 hours Imaging: Results for orders placed or performed during the hospital encounter of 07/29/24 XR Chest One View (Exam End: 07/29/2024 2:30 PM) Result Value WORKSTATION ID [id number] Impression 1. No pulmonary edema. 2. No pleural effusion. 3. No pneumothorax. Thank you for letting us participate in the care of this patient. If you are a health care provider and have any questions regarding this report, please contact the number below. For patients who have questions please contact the health medical care administrator that requested your imaging first. Electronically signed by: Chris Candelaria MD, [facility] ([phone]), at 07/29/2024 3:21 PM TTE ( 07/30/24) [...] Compared to the overnight study by the reservations and ticketing agent fellow the impella position is stable. The [...] EKG. Patient transferred via air ambulance to [facility] on 07/29 for LHC and LOW to [...] Transfer to floor. Krystal Parker MD, [facility] Staff Blade Filer teacher physically impaired * Gagan Catherine MD - 08/01/2024 11:12 [...] EKG. Patient transferred via air ambulance to [facility] on 07/29 for LHC and LOW to LAD for 100% occlusion. TTE showed apical akinesis and inferior hypokinesis with EF 20%. RHC showed elevated filling pressures. Impella placed and P-level 6 at time of transfer to [facility]. CI initially 1.97, improved to 2.2 After impella. Received about 3 L of fluid during procedural course. Patient initially required norepinephrine 30, epinephrine 10, and vasopressin 0.04 for hemodynamic support, which was weaned upon arrival to [facility] to norepinephrine 20and levo 0.04 N [...] PCP: Alexia Mtz APRN PCP phone number: [phone] Date of Admission: 07/29/2024 ( Hospital Day 3 days ) Attending:Krystal Parker MD ID: Korey Montoya is a 74 y.o. male w/ PMH of hypertension, HLD, and BPH on Hospital Day3 for chief concern of chest pain after being found to have ST elevations on EKG. Patient transferred via air ambulance to [facility] on 07/29 for LHC and LOW to [...] 07/29/24 1621 PHART 7.48* 7.44 7.38 7.37 [id number] 29* 29* 34* 36 PO2ART 71* 109* 141* 71* AAU6OHW 20.6 19.4* 19.5* 20.4 VBG (Venous Blood Gas) Recent Labs 07/29/24 1401 PHVEN 7.30* PO2VEN 39 FEC0EJN 20.1* Mixed Venous Sat No results for input(s): M8KPIO1 in the last 168 hours. PA Catheter [...] 07/29/24 1621 PHART 7.48* 7.44 7.38 7.37 BIV0BEP 29* 29* 34* 36 PO2ART 71* 109* 141* 71* WPB1ZLL 20.6 19.4* 19.5* 20.4 VBG (Venous Blood Gas) Recent Labs 07/29/24 1401 PHVEN 7.30* PO2VEN 39 ERD7HWZ 20.1* Mixed Venous Sat No results for input(s): B9OAAU2 in the last 168 hours. Microbiology: Microbiology Results (Last 30 days) Procedure Component Value Units Date/Time Blood culture [[id number]] Collected: 07/29/241607 Lab Status: Preliminary result Specimen: Blood, Venous Updated: 07/31/241700 Blood Culture No growth at 48 hours Blood culture [[id number]] Collected: 07/29/241607 Lab Status: Preliminary result Specimen: Blood, Venous Updated: 07/31/241700 Blood Culture No growth at 48 hours Imaging: Results for orders placed or performed during the hospital encounter of 07/29/24 XR Chest One View (Exam End: 07/29/2024 2:30 PM) Result Value WORKSTATION ID [id number] Impression 1. No pulmonary edema. 2. No pleural effusion. 3. No pneumothorax. Thank you for letting us participate in the care of this patient. If you are a health care provider and have any questions regarding this report, please contact the number below. For patients who have questions please contact the health medical care administrator that requested your imaging first. Electronically signed by: Chris Candelaria MD, [facility] ([phone]), at 07/29/2024 3:21 PM TTE ( 07/30/24) [...] Compared to the overnight study by the reservations and ticketing agent fellow the impella position is stable. The [...] EKG. Patient transferred via air ambulance to [facility] on 07/29 for LHC and LOW to [...] him; questions answered. Krystal Parker MD, [facility] Staff Blade Filer teacher physically impaired * Krystal Parker MD - 07/31/2024 1:06 [...] EKG. Patient transferred via air ambulance to [facility] on 07/29 for LHC and LOW to LAD for 100% occlusion. TTE showed apical akinesis and inferior hypokinesis with EF 20%. RHC showed elevated filling pressures. Impella placed and P-level 6 at time of transfer to [facility]. CI initially 1.97, improved to 2.2 After impella. Received about 3 L of fluid during procedural course. Patient initially required norepinephrine 30, epinephrine 10, and vasopressin 0.04 for hemodynamic support, which was weaned upon arrival to [facility] to norepinephrine 20and levo 0.04 N [...] PCP: Alexia Mtz APRN PCP phone number: [phone] Date of Admission: 07/29/2024 ( Hospital Day 2 days ) Attending:Krystal Parker MD ID: Korey Montoya is a 74 y.o. male w/ PMH of hypertension, HLD, and BPH on Hospital Day2 for chief concern of chest pain after being found to have ST elevations on EKG. Patient transferred via air ambulance to [facility] on 07/29 for LHC and LOW to [...] 0057 07/29/24 1621 PHART 7.44 7.38 7.37 NZE6XEA 29* 34* 36 PO2ART 109* 141* 71* VUQ8OUB 19.4* 19.5* 20.4 VBG (Venous Blood Gas) Recent Labs 07/29/24 1401 PHVEN 7.30* PO2VEN 39 IMU1JTF 20.1* Mixed Venous Sat No results for input(s): J8SBUN8 in the last 168 hours. PA Catheter [...] 0057 07/29/24 1621 PHART 7.44 7.38 7.37 TLD7HMO 29* 34* 36 PO2ART 109* 141* 71* BAR5EHD 19.4* 19.5* 20.4 VBG (Venous Blood Gas) Recent Labs 07/29/24 1401 PHVEN 7.30* PO2VEN 39 JYD7NTH 20.1* Mixed Venous Sat No results for input(s): I9KPDC0 in the last 168 hours. Microbiology: Microbiology Results (Last 30 days) Procedure Component Value Units Date/Time Blood culture [[id number]] Collected: 07/29/241607 Lab Status: Preliminary result Specimen: Blood, Venous Updated: 07/30/241700 Blood Culture No Growth at 18-24 hrs. Blood culture [[id number]] Collected: 07/29/241607 Lab Status: Preliminary result Specimen: Blood, Venous Updated: 07/30/241700 Blood Culture No Growth at 18-24 hrs. Imaging: Results for orders placed or performed during the hospital encounter of 07/29/24 XR Chest One View (Exam End: 07/29/2024 2:30 PM) Result Value WORKSTATION ID [id number] Impression 1. No pulmonary edema. 2. No pleural effusion. 3. No pneumothorax. Thank you for letting us participate in the care of this patient. If you are a health care provider and have any questions regarding this report, please contact the number below. For patients who have questions please contact the health medical care administrator that requested your imaging first. Electronically signed by: Chris Candelaria MD, [facility] ([phone]), at 07/29/2024 3:21 PM TTE ( 07/30/24) [...] Compared to the overnight study by the reservations and ticketing agent fellow the impella position is stable. The [...] EKG. Patient transferred via air ambulance to [facility] on 07/29 for LHC and LOW to [...] work to optimize volume status while continuing sdxqxlj-jmpypc-sxazoijmyo therapies at this time. Obtain comprehensive TTE. [...] EKG. Patient transferred via air ambulance to [facility] on 07/29 for LHC and LOW to LAD for 100% occlusion. TTE showed apical akinesis and inferior hypokinesis with EF 20%. RHC showed elevated filling pressures. Impella placed and P-level 6 at time of transfer to [facility]. CI initially 1.97, improved to 2.2 After impella. Received about 3 L of fluid during procedural course. Patient initially required norepinephrine 30, epinephrine 10, and vasopressin 0.04 for hemodynamic support, which was weaned upon arrival to [facility] to norepinephrine 20and levo 0.04 N [...] PCP: Yoel Artis APRN PCP phone number: [phone] Date of Admission: 07/29/2024 ( Hospital Day 1 day ) Attending:Aubree Silverio MD ID: Korey Montoya is a 74 y.o. male w/ PMH of hypertension, HLD, and BPH on Hospital Day1 for chief concern of chest pain after being found to have ST elevations on EKG. Patient transferred via air ambulance to [facility] on 07/29 for LHC and LOW to [...] 0057 07/29/24 1621 PHART 7.44 7.38 7.37 EJJ4UUG 29* 34* 36 PO2ART 109* 141* 71* EDY1EIV 19.4* 19.5* 20.4 VBG (Venous Blood Gas) Recent Labs 07/29/24 1401 PHVEN 7.30* PO2VEN 39 IBM0BOR 20.1* Lactate ( Last 12 hours) 1.3 >> 1.2 Mixed Venous Sat No results for input(s): M1HWGB4 in the last 168 hours. PA Catheter [...] 0057 07/29/24 1621 PHART 7.44 7.38 7.37 DLE2YMK 29* 34* 36 PO2ART 109* 141* 71* MZM5MBZ 19.4* 19.5* 20.4 VBG (Venous Blood Gas) Recent Labs 07/29/24 1401 PHVEN 7.30* PO2VEN 39 GQV3IAD 20.1* Mixed Venous Sat No results for input(s): M7TYUC4 in the last 168 hours. Microbiology: Microbiology Results (Last 30 days) Procedure Component Value Units Date/Time Blood culture [[id number]] Collected: 07/29/24 1608 Lab Status: In process Specimen: Blood, Venous Updated: 07/29/24 1626 Blood culture [[id number]] Collected: 07/29/24 1608 Lab Status: In process Specimen: Blood, Venous Updated: 07/29/24 1615 Imaging: Results for orders placed or performed during the hospital encounter of 07/29/24 XR Chest One View (Exam End: 07/29/2024 2:30 PM) Result Value WORKSTATION ID [id number] Impression 1. No pulmonary edema. 2. No pleural effusion. 3. No pneumothorax. Thank you for letting us participate in the care of this patient. If you are a health care provider and have any questions regarding this report, please contact the number below. For patients who have questions please contact the health medical care administrator that requested your imaging first. Medications Scheduled [...] EKG. Patient transferred via air ambulance to [facility] on 07/29 for LHC and LOW to [...] EKG. Patient transferred via air ambulance to [facility] on 07/29 for LHC and LOW to [...] EKG. Was transferred via air ambulance to [facility] for further management and C demo nstrated 100% occlusion. No significant RCA, LMCA, or LCX disease. LOW placed in LAD with some residual distal disease meriting placement of overlapping distal stent. TTE showed apical akinesis and inferior hypokinesis with EF 20%. RHC showed elevated filling pressures. Impella placed and P-level 6 at time of transfer to [facility]. CI initially 1.97, improved to 2.2 After impella. Received about 3 L of fluid during procedural course. Patient initially required norepinephrine, epinephrine, and vasopressin for hemodynamic support, which was weaned upon arrival to [facility] to norepinephrine 20 and levo 0.04 [...] mouth. Past Week nitroGLYcerin (NITROLINGUAL) 400 mcg/spray [place], Non-Aerosol 1 spray to anus for proctalgia [...] guiding catheter and a 3.5 Fr [place] [facility] [place] [facility] 20 Mhz using Manual pullback. Imaging [...] priority for the procedure was Emergent. The [facility] indication for the procedure was STEMI-Immediate [...] A premounted 3.00 x 22 mm Jeison Baraga (LOW) was deployed with a maximum inflation [...] atmospheres. A premounted 3.00 x 08 mm Clinton Baraga (LOW) was deployed with a maximum inflation [...] a limited study performed by a fellow reservations and ticketing agent to evaluate for cardiogenic shock with impella [...] Compared to the overnight study by the reservations and ticketing agent fellow the impella position is stable. The [...] EKG. Patient transferred via air ambulance to [facility] on 07/29 for LHC and LOW to [...] PCP: Yoel Artis APRN PCP phone number: [phone] Date of Admission: 07/29/2024 ( Hospital Day 0 days ) Attending:Aubree Silverio MD ID: Korey Montoya is a 74 y.o. male w/ PMH of hypertension, HLD, and BPH who presents for chief concern of chest pain after being found to have ST elevations on EKG. Patient transferred via air ambulance to [facility] on 07/29 for LHC and LOW to LAD for 100% occlusion. HPI: Korey Montoya is a 74 y.o. male w/ PMH of hypertension, HLD, and BPH who presents for chief concern of chest pain after being found to have ST elevations on EKG. Patient transferred via air ambulance to [facility] on 07/29 for LHC and LOW to [...] EKG. Was transferred via air ambulance to [facility] for further management and LHC demonstrated 100% [...] Blood Gas) No results for input(s): PHART, RPS5ASW, PO2ART, JLO4MZD, LACTATEVEN, MEO0ZCX, PFRATIOART2 in the last 168 hours. VBG (Venous Blood Gas) Recent Labs 07/29/24 1401 PHVEN 7.30* PO2VEN 39 PSZ3RWE 20.1* Mixed Venous Sat No results for input(s): G9VHUL1 in the last 168 hours. PA Catheter [...] Blood Gas) No results for input(s): PHART, YSP7CUL, PO2ART, SJV6KLT, LACTATEVEN, XMM4XHF, PFRATIOART2 in the last 168 hours. VBG (Venous Blood Gas) Recent Labs 07/29/24 1401 PHVEN 7.30* PO2VEN 39 WRL2JQG 20.1* Mixed Venous Sat No results for input(s): R0JGQA7 in the last 168 hours. Microbiology: Microbiology [...] EKG. Patient transferred via air ambulance to [facility] on 07/29 for LHC. Found to have 100% occlusion of LAD for which he underwent LOW to LAD.Otherwise no other significant vessel disease. Fahad is currently hemodynamically tenuous but improving upon admission to [facility], requiring hemodynamic support with norepinephrine and vasopressin at time of admission along with mechanical support with Impella device. Reassuringly, he demonstrates decreasing pressor requirements since admission to [facility], with epinephrine completely weaned. He does [...] Bernardo Amos MD Internal Medicine, PGY-3 Cardiology, [facility] 07/29/24 3:14 PM Cardiology Attending Note [...] MD, FACP, FACC Section of Cardiovascular Medicine [facility] Medical Scientistcrop scout [facility] This patient meets or has met medical [...] to the planned procedure. Hand Hygiene: The wine maker did perform hand hygiene prior to arterial [...] ease. Good wave form. Ivan Hernandez MD Top Dyeing Machine Loader Associated attestation - Rolando Yeh MD - [...] Fahad was quite active prior to his AR. 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 Given parameters for home exercise. He follows a heart healthy diet and is not overweight. His lipids are wnl. Participation in an outpatient cardiac rehabilitation program at [facility] was discussed. Patient agrees to a [...] MEDICARE Payor: [employer] MANAGED MEDICARE / Plan: [facility] COMPLETE / Product [...] Date of Discharge: 08/04/2024 Gaby Wong RN, Pager-[phone] * Initial Assessments - Char Meza OT - 08/03/2024 10:00 AM EST Occupational Therapy Evaluation Patient profile: Korey Montoya is a 74 y.o. male admitted on 07/29/2024 w/ PMH of hypertension, HLD, and BPH who presents for chief concern of chest pain after being found to have ST elevations onEKG. Patient transferred via air ambulance to [place] on 07/29 for LHC and LOW to [...] falls. Subjective: I have access to an [employer] gym. (Educated to wait for MD to [...] evaluation only Total Minutes, Occupational Therapy: 14 ([id number] (evaluation)) 2017 OT Evaluation Code Rationale: Diagnosis [...] and measurable assessment of functional outcome. Pager: [phone] Char Meza OT 08/03/2024 Occupational Therapy Rehabilitation [...] (Interventions Implemented as Appropriate) Flowsheets (Taken 08/01/2024 3288) Outcome Summary: A+O, no pain. NSR. MAP > 65, no intervention. Dobutamine and amiodarone gtts off, CI > 2 via TD and Thomas. PA cath, intro, arterial line removed. RA. Tolerating diet. Perez removed, voiding appropriately in urinal. 20mg Lasix given with good effect. Plan of Care Reviewed With: patient Progress: improving * Brief Op Note - Maldonado uLis MD - 07/31/2024 5:35 PM EST Preliminary Cardiac Catheterization Procedure Note: Patient Name: Korey Montoya : [id number] MR#: [id number] Case Date: 07/31/2024 Cotton Puller: Surgeons and Role: * Maldonado Luis MD - Primary * Quinten Charles PA - Physician Leaf Size Picker Preoperative diagnosis: shock, impella Postoperative diagnosis: * same * Procedure(s) performed: Impella removal form right PADDER CUSHION Access: Right PADDER CUSHION A time-out was conducted prior to the [...] Admitted From: Transfer from another hospital Location: [facility] Reason for Hospitalization: chest pain Past [...] 180 days) Any patient receiving care in [place] must abide by [place] law. The hierarchy [...] (i) The agent with financial power of insurance attorney or a conservator appointed in accordance [...] or living in a senior care (including now)?: No In the past 12 [...] it) Home Address confirmed as: Mailing Address: [address] [address] Physical Address: [address] [place] [address] Social & Family Supports: All names listed [...] points: Addiction likely Health/Prescription Coverage: Primary Insurance: [facility] MANAGED MEDICARE Payor: [employer] MANAGED MEDICARE / Plan: [facility] MANAGED MEDICARE COMPLETE / Product Type: *No Product type* / Secondary Insurance: N/A ; Prescription Coverage: Yes Preferred Pharmacy: [address] - [address] [address] [place] Status: Patient is a : No Primary Care Provider confirmed: Alexia Mtz, MACHINIST GENERAL [phone] Patient/Caregiver Goals of Treatment: return home Potential [...] for Transition of Care 07/30/2024529 by Chase aCstro RN Outcome: Ongoing (Interventions Implemented as Appropriate) [...] 07/29/2024 6:25 PM EST Pt arrived from 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 CXR and EKG completed. [...] Procedure Note: Patient Name: Korey Montoya : [id number] MR#: [id number] Case Date: 07/29/2024 Cotton Puller: Surgeons and Role: * Vahe Marvin MD - Primary * Susannah Watts PA - Physician Leaf Size Picker Preoperative diagnosis: STEMI Postoperative diagnosis: * STEMI, LAD Artery * * Cardiogenic Shock * Procedure(s) performed: [facility] Coronary angiogram Stent insertion coronary IVUS coronary Venous line insert [facility] Moody Colette Catheter Vascular closure device Ventricular assist [...] x 22 mm to 14 deonna JEISON Baraga with LIZ 3 flow. Residual distal disease at distal stent, overlapping distal stent was inserted with 3.0 x 8 mm JEISON Baraga. Systolic's in the 80's sustained. Patient re [...] 10:00 AM EST Office Visit Cardiology at [address] [phone] Mushtaq Murphy, FREDRICK Scheduled Orders Name Type [...] HEMATOLOGY ORDERABLE S [facility] [place] [address] * Magnesium (08/04/2024 6:08 AM EST) Magnesium 0.85 0.69 - 1.07 mMol/L 08/04/2024 7:07 AM [facility] Blood VENOUS BLOOD SPECIMEN / Unknown Venipuncture / Unknown 08/04/2024 6:08 AM EST 08/04/2024 6:19 AM EST Bridgette Stauffer MD CHEMISTRY ORDERABLES [facility] [place] [address] * Basic Metabolic Panel (08/04/2024 6:08 AM [...] MD CHEMISTRY ORDERABLES [facility] [place] [address] * (ABNORMAL) CBC (with Diff) (08/03/2024 5:16 [...] 0.10 x10(3)/mc L 08/03/2024 5:[address] [facility] Immature Gran % 0.3 % 5:29 AM [facility] Immature Gran Absolute <0.04 0.00 - 0.04 x10(3)/mc L 08/03/2024 5:29 AM [facility] Blood VENOUS BLOOD SPECIMEN / Unknown Venipuncture / Unknown 08/03/2024 5:16 AM EST 08/03/2024 5:23 AM EST Bridgette Stauffer MD HEMATOLOGY ORDERABLE S Performing Organization Address City/[facility]/ZIP Co de Phone Number [facility] [place] [address] * Magnesium (08/03/2024 5:16 AM EST) Pathologist [facility] Magnesium 0.89 0.69 - 1.07 mMol/L 08/03/2024 5:56 AM [facility] Blood VENOUS BLOOD SPECIMEN / Unknown Venipuncture / Unknown 08/03/2024 5:16 AM EST 08/03/2024 5:23 AM EST Bridgette Stauffer MD CHEMISTRY ORDERABLES Performing Organization Address City/[facility] Co de Phone Number [facility] [place] [address] * (ABNORMAL) Basic Metabolic Panel (08/03/2024 5:16 [...] MD CHEMISTRY ORDERABLES [facility] [place] [address] * POC, GLUCOSE (08/02/2024 7:47 AM EST) Glucometer, POC 89 65 - 199 mg/dL 08/02/2024 7:[address] [facility] Comment:Supplemental ranges: <140 mg/dL before meals <180 mg/dL all other times of the day. Blood CAPILLARY BLOOD / Unknown 08/02/2024 7:47 AM EST 08/02/2024 7:47 AM EST Krystal Parker MD POINT OF CARE TEST O RDERABLES [facility] [place] [address] * (ABNORMAL) CBC (with Diff) (08/02/2024 4:20 [...] HEMATOLOGY ORDERABLE S [facility] [place] [address] * Magnesium (08/02/2024 4:20 AM EST) Magnesium 0.79 0.69 - 1.07 mMol/L 08/02/2024 5:06 AM [facility] Blood VENOUS BLOOD SPECIMEN / Unknown Venipuncture / Unknown 08/02/2024 4:20 AM EST 08/02/2024 4:37 AM EST Bridgette Stauffer MD CHEMISTRY ORDERABLES Performing Organization Address City/[facility]/ZIP Co de Phone Number [facility] [place] [address] * (ABNORMAL) Basic Metabolic Panel (08/02/2024 4:20 [...] - 15 mMol/L 08/02/2024 5:[address] [facility] Calcium 8.1(L) 8.5 - 10.5 mg/dL 08/02/2024 5:[address] [facility] Est Glomerular Filtration Rate - Male 91 mL/min/1. 73 m?? 08/02/2024 5:[address] [facility] Comment: [...] Stauffer MD CHEMISTRY ORDERABLES Performing Organization Address City/[facility]/ZIP Co de Phone Number [facility] [place] [address] * Potassium (08/01/2024 8:39 PM EST) Potassium 4.0 3.5 - 5.0 mMol/L 08/01/2024 9:[address] [facility] Blood VENOUS BLOOD SPECIMEN / Unknown Venipuncture / Unknown 08/01/2024 8:39 PM EST 08/01/2024 8:51 PM EST Aubree Silverio MD CHEMISTRY ORDERABL ES [facility] [place] [address] * POC, GLUCOSE (08/01/2024 8:35 PM EST) Glucometer, POC 112 65 - 199 mg/dL 08/01/2024 8:[address] [facility] Comment:Supplemental ranges: <140 mg/dL before meals <180 mg/dL all other times of the day. Blood CAPILLARY BLOOD / Unknown 08/01/2024 8:35 PM EST 08/01/2024 8:36 PM EST Krystal Parker MD POINT OF CARE TEST O RDERASHAY [facility] [place] [address] * POC, GLUCOSE (08/01/2024 4:55 PM EST) Glucometer, POC 99 65 - 199 mg/dL 08/01/2024 4:[address] [facility] Comment:Supplemental ranges: <140 mg/dL before meals <180 mg/dL all other times of the day. Blood CAPILLARY BLOOD / Unknown 08/01/2024 4:55 PM EST 08/01/2024 4:56 PM EST Krystal Parker MD POINT OF CARE TEST O JOSH Performing Organization Address [facility]/ZIP Co de Phone Number [facility] [place] [address] * POC, GLUCOSE (08/01/2024 12:42 PM EST) Glucometer, POC 130 65 - 199 mg/dL 08/01/2024 12:[address] [facility] Comment:Supplemental ranges: <140 mg/dL before meals <180 mg/dL all other times of the day. Blood CAPILLARY BLOOD / Unknown 08/01/2024 12:42 PM EST 08/01/2024 12:43 PM EST Krystal Parker MD POINT OF CARE TEST O JOSH Performing Organization Address City/[facility]/ZIP Co de Phone Number [facility] [place] [address] * (ABNORMAL) Cooximetry, POC (08/01/2024 10:45 AM [...] TEST O RDERABLES [facility] [place] [address] * Potassium (08/01/2024 8:20 AM EST) Potassium 4.0 3.5 - 5.0 mMol/L 08/01/2024 10:[address] [facility] Blood ARTERIAL BLOOD / Unknown Venipuncture / Unknown 08/01/2024 8:20 AM EST 08/01/2024 8:30 AM EST Aubree Silverio MD CHEMISTRY ORDERABL ES [facility] [place] [address] * POC, GLUCOSE (08/01/2024 7:44 AM EST) Pathologist [facility] Glucometer, POC 86 65 - 199 mg/dL 08/01/2024 7:[address] [facility] Comment:Supplemental ranges: <140 mg/dL before meals <180 mg/dL all other times of the day. Blood CAPILLARY BLOOD / Unknown 08/01/2024 7:44 AM EST 08/01/2024 7:44 AM EST Krystal Parkre MD POINT OF CARE TEST O RDERABLES [facility] [place] [address] * (ABNORMAL) CBC (with Diff) (08/01/2024 4:18 AM EST) [facility] White Blood Cell 8.51 4.00 - 9.50 [...] ORDERABLE S Performing Organization Address [facility] Co de Phone Number [facility] [place] [address] * Magnesium (08/01/2024 4:18 AM EST) Pathologist [facility] Magnesium 0.74 0.69 - 1.07 mMol/L 08/01/2024 5:00 AM [facility] Blood VENOUS BLOOD SPECIMEN / Unknown Venipuncture / Unknown 08/01/2024 4:18 AM EST 08/01/2024 4:29 AM EST Bridgette Stauffer MD CHEMISTRY ORDERABLES Performing Organization Address [facility] Co de Phone Number [facility] [place] [address] * (ABNORMAL) Basic Metabolic Panel (08/01/2024 4:18 AM EST) Pathologist [facility] Glucose 107 65 - 199 mg/dL 08/01/2024 [...] MD CHEMISTRY ORDERABLES [facility] [place] [address] * POC, GLUCOSE (07/31/2024 8:41 PM EST) [...] RDERABLES Performing Organization Address [facility]/State/ZIP Co de Phone Number [facility] [place] [address] * CARDIAC CATHETERIZATION (07/31/2024 5:53 PM EST) Anatomical Region Laterality Modality Other Narrative 08/01/2024 12:37 PM EST ?[facility] ? Cardiac Catheterization/Intervention Report ? Patient Name: Korey Montoya Kyrie. ? Procedure Date: 07/31/2024 ? A #: [id number] ? Primary Physician: Janelle, Maldonado T ? Case #: [id number] ? File Name: [id number] ? Catheterization Order Number: [id number] ? [facility] ? Final Report [place], [place] ? Patient Name: ? Korey Montoya ?ID#: ?[id number] ? : ?1950 ? Procedure Date: ? July 31, 2024 ?Case #: ? [id number] ? Room: ? 1 ? Case [...] ? Comments: ?Impella removed from the right PADDER CUSHION with deployment of Perclose and ?Angioseal. ??Good [...] Procedure Note Maldonado Luis MD - 08/01/2024 [facility] Cardiac Catheterization/Intervention Report Patient Name: Korey Montoya Procedure Date: 07/31/2024 A #: [id number] Primary Physician: Maldonado Luis Case #: [id number] File Name: [id number] Catheterization Order Number: [id number] [facility] FinalReport [place], [place] Patient Name: Korey Montoya ID#:[id number] :1950 Procedure Date: July 31, 2024 Case [...] was designated as ASA Class IV. The [facility] clinical frailtyscale is 4: Vulnerable. Diagnostic [...] procedures. Comments: Impella removed from the right PADDER CUSHION with deployment of Perclose and Angioseal. Good [...] * POC, GLUCOSE (07/31/2024 11:04 AM EST) [facility] Glucometer, POC 82 65 - 199 mg/dL 07/31/2024 11:[address] [facility] Comment:Supplemental ranges: <140 mg/dL before meals <180 mg/dL all other times of the day. Blood CAPILLARY BLOOD / Unknown 07/31/2024 11:04 AM EST 07/31/2024 11:04 AM EST Krystal Parker MD POINT OF CARE TEST O RDERABLES [facility] [place] [address] * (ABNORMAL) Blood Gas, Arterial POC (07/31/2024 [...] MD POINT OF CARE TEST O JOSH [facility] [place] [address] * POC, GLUCOSE (07/31/2024 7:47 AM EST) Glucometer, POC 82 65 - 199 mg/dL 07/31/2024 7:53 AM [facility] Comment:Supplemental ranges: <140 mg/dL before meals <180 mg/dL all other times of the day. Blood CAPILLARY BLOOD / Unknown 07/31/2024 7:47 AM EST 07/31/2024 7:53 AM EST Krystal Parker MD POINT OF CARE TEST O RDERASHAY [facility] [place] [address] * (ABNORMAL) CBC (with Diff) (07/31/2024 1:08 [...] HEMATOLOGY ORDERABLE S [facility] [place] [address] * Magnesium (07/31/2024 1:08 AM EST) Pathologist [facility] Magnesium 0.89 0.69 - 1.07 mMol/L 07/31/2024 1:46 AM [facility] Blood VENOUS BLOOD SPECIMEN / Unknown Venipuncture / Unknown 07/31/2024 1:08 AM EST 07/31/2024 1:18 AM EST Bridgette Stauffer MD CHEMISTRY ORDERABLES [facility] [address] [place] [address] * (ABNORMAL) Basic Metabolic Panel (07/31/2024 1:08 AM EST) Pathologist [facility] Glucose 97 65 - 199 mg/dL 07/31/2024 [...] - 145 mMol/L 07/31/2024 1:[address] [facility] Potassium 4.1 3.5 - 5.0 mMol/L 07/31/2024 1:46 AM [facility] Chloride 110(H) 98 - 107 mMol/L 07/31/2024 1:46 AM [facility] Carbon Dioxide 24 22 - 31 mMol/L 07/31/2024 1:46 AM [facility] Anion Gap 6 5 - 15 mMol/L 07/31/2024 1:[address] [facility] Calcium 7.7(L) 8.5 - 10.5 [...] MD CHEMISTRY ORDERABLES [facility] [place] [address] * (ABNORMAL) Hepatic Function Panel (07/31/2024 1:08 AM EST) Albumin 3.1(L) 3.2 - 5.2 g/dL 07/31/2024 1:[address] [facility] Aspartate Aminotransferase 192(H) <=39 unit/L [...] ORDERABLES Performing Organization Address [facility]/ZIP Co de Phone Number [facility] [place] [address] * POC, GLUCOSE (07/30/2024 8:03 PM EST) Glucometer, POC 86 65 - 199 mg/dL 07/30/2024 8:[address] [facility] Comment:Supplemental ranges: <140 mg/dL before meals <180 mg/dL all other times of the day. Blood CAPILLARY BLOOD / Unknown 07/30/2024 8:03 PM EST 07/30/2024 8:03 PM EST Krystal Parker MD POINT OF CARE TEST O RDERABLES Performing Organization Address City/[facility]/ZIP Co de Phone Number [facility] [place] [address] * Potassium (07/30/2024 8:03 PM EST) [facility] Potassium 3.8 3.5 - 5.0 mMol/L 07/30/2024 9:[address] [facility] Blood VENOUS BLOOD SPECIMEN / Unknown Venipuncture / Unknown 07/30/2024 8:03 PM EST 07/30/2024 8:22 PM EST Aubree Silverio MD CHEMISTRY ORDERABL ES Performing Organization Address City/[facility]/ZIP Co de Phone Number [facility] [place] [address] * POC, GLUCOSE (07/30/2024 6:23 PM EST) Glucometer, POC 93 65 - 199 mg/dL 07/30/2024 6:[address] [facility] Comment:Supplemental ranges: <140 mg/dL before meals <180 mg/dL all other times of the day. Blood CAPILLARY BLOOD / Unknown 07/30/2024 6:23 PM EST 07/30/2024 6:24 PM EST Krystal Parker MD POINT OF CARE TEST O RDKAY Performing Organization Address [facility] Co de Phone Number [facility] [place] [address] * POC, GLUCOSE (07/30/2024 5:08 PM EST) Glucometer, POC 78 65 - 199 mg/dL 07/30/2024 5:[address] [facility] Comment:Supplemental ranges: <140 mg/dL before meals <180 mg/dL all other times of the day. Blood CAPILLARY BLOOD / Unknown 07/30/2024 5:08 PM EST 07/30/2024 5:08 PM EST Krystal Parker MD POINT OF CARE TEST O JOSH Performing Organization Address [facility] Co de Phone Number [facility] [place] [address] * (ABNORMAL) Phosphorus (07/30/2024 3:08 PM EST) Phosphorus 2.1(L) 2.5 - 4.5 mg/dL 07/30/2024 3:[address] [facility] Blood VENOUS BLOOD SPECIMEN / Unknown Venipuncture / Unknown 07/30/2024 3:08 PM EST 07/30/2024 3:12 PM EST Aubree Silverio MD CHEMISTRY ORDERABL ES Performing Organization Address [facility] Co de Phone Number [facility] [place] [address] * Magnesium (07/30/2024 3:08 PM EST) Magnesium 0.90 0.69 - 1.07 mMol/L 07/30/2024 3:[address] [facility] Blood VENOUS BLOOD SPECIMEN / Unknown Venipuncture / Unknown 07/30/2024 3:08 PM EST 07/30/2024 3:12 PM EST Aubree Silverio MD CHEMISTRY ORDERABL ES [facility] [place] [address] * (ABNORMAL) Basic Metabolic Panel (07/30/2024 3:08 [...] EST Aubree Silverio MD CHEMISTRY ORDERABL ES [facility] [address] * ECHO LMTD W CONTRAST W LMTD SPEC DOPP COLOR DOPP (07/30/2024 11:42 AM EST) Anatomical Region Laterality Modality Cardiac Other 07/30/2024 10:2 2 AM EST Narrative 07/30/2024 12:34 PM EST [address] [place] [address] ? Echocardiogram Report Name: MONTOYA KOREY Kyrie ? Study Date: 07/30/2024 10:22 AMBP: 124/66 mmHg : 1950 ? Height: 168 cm ? Account: [id number] Age: 74 yrs ? Weight: 65 kg Gender: Male ?BSA: 1.7 m2 Ordering Physician: Aubree Silverio MD Referring Physician: CHAPARRO FERRERA Performed By: OMERO Millan Reason For Study: ST elevation myocardial infarction involving left anterior descending (LAD) coronary artery Interpreting Fellow: Ivan Hernandez. Exam Location: [facility]. Interpretation Summary Left ventricle is [...] Compared to the overnight study by the reservations and ticketing agent fellow the impella position is stable. 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 Procedure Limited - 78638. Image enhancement Definity was used for both [...] Kathleen Banda MD - 07/30/2024 [address] [place] [address] Echocardiogram Report Name: KOREY MONTOYA Study Date: 0:22 AMBP: 124/66 mmHg : 1950 Height: 168 cm Account: [id number] Age: 74 yrs Weight: 65 kg Gender: Male BSA: 1.7 m2 Ordering Physician: Aubree Silverio MD Referring Physician: CHAPARRO FERRERA Performed By: OMERO Millan Reason For Study: ST elevation myocardial infarction involving leftanterior descending (LAD) coronary artery Interpreting Fellow: Ivan Hernandez. Exam Location: [facility]. Interpretation Summary Left ventricle is [...] Compared to the overnight study by the reservations and ticketing agent fellow the impella positionis stable. The global left ventricular systolic function has improvedpredominantly via recruitment outside the LAD territory which remains akinetic. Procedure Limited - 62505. Image enhancement Definity was used for both [...] CARE TEST ORDERABLES [facility] [place] [address] * (ABNORMAL) Blood Gas, Arterial POC (07/30/2024 [...] - 145 mmol/L 07/30/2024 8:[address] [facility] Potassium, Arterial 3.9 3.5 - [...] CARE TEST ORDERABLES [facility] [place] [address] * (ABNORMAL) Troponin - Single (07/30/2024 8:09 [...] can be found in the [facility] Test Catalog Troponin - https://[email or web address]-.testcatalog.org/catalogs/565/files/48034 Reference: Fourth Mcdonald Definition of Myocardial Infarction. Journal of the [place] [employer] 2018;72:8474-4849 Blood VENOUS BLOOD SPECIMEN / Unknown Venipuncture / Unknown 07/30/2024 8:09 AM EST 07/30/2024 8:26 AM EST Aubree Silverio MD CHEMISTRY ORDERABL ES Performing Organization Address [facility] Co de Phone Number [facility] [place] [address] * POC, GLUCOSE (07/30/2024 7:40 AM EST) Glucometer, POC 111 65 - 199 mg/dL 07/30/2024 7:[address] [facility] Comment:Supplemental ranges: <140 mg/dL before meals <180 mg/dL all other times of the day. Blood CAPILLARY BLOOD / Unknown 07/30/2024 7:40 AM EST 07/30/2024 7:40 AM EST Aubree Silverio MD POINT OF CARE TEST ORDERABLES Performing Organization Address [facility] Co de Phone Number [facility] [place] [address] * (ABNORMAL) CBC (with Diff) (07/30/2024 2:11 AM EST) White Blood Cell 11.25(H) 4.00 - 9.50 x10(3)/mc L 07/30/2024 2:[address] [facility] Red Blood Cell 4.50(L) 4.58 [...] 3.20 x10(3)/mc L 07/30/2024 2:[address] [facility] Monocyte % 5.4 % 07/30/2024 [...] HEMATOLOGY ORDERABLE S [facility] [place] [address] * Magnesium (07/30/2024 2:11 AM EST) Magnesium 1.01 0.69 - 1.07 mMol/L 07/30/2024 2:51 AM [facility] Blood VENOUS BLOOD SPECIMEN / Unknown Venipuncture / Unknown 07/30/2024 2:11 AM EST 07/30/2024 2:22 AM EST Bridgette Stauffer MD CHEMISTRY ORDERABLES [facility] [place] [address] * (ABNORMAL) Basic Metabolic Panel (07/30/2024 2:11 [...] Stauffer MD CHEMISTRY ORDERABLES Performing Organization Address City/[facility]/ZIP Co de Phone Number [facility] [place] [address] * (ABNORMAL) Cooximetry, POC (07/30/2024 1:00 AM EST) pO2, Coox 28 mmHg 07/30/2024 1:03 AM [facility] Hemoglobin, Coox 12.7(L) 13.7 - 16.5 g/dL 07/30/2024 1:[address] [facility] Oxyhemoglobin, Coox 54.9 % 07/30/2024 1:03 AM [facility] Carboxyhemoglo bin, Coox 1.0 % 07/30/2024 1:[address] [facility] Comment: Nonsmokers: 0.5-1.5% COHB ?? Smokers: Variable ??but usually less than 10% ?? Toxic: 20-30% COHB ?? Lethal: Greater than 60% COHB Methemoglobin, Coox 0.0 <=1.5 % 07/30/2024 1:[address] [facility] Blood (Mixed Venous) 07/30/2024 1:00 AM EST 07/30/2024 1:03 AM EST Aubree Silverio MD POINT OF CARE TEST ORDERABLES Performing Organization Address [facility] Co de Phone Number [facility] [place] [address] * (ABNORMAL) Blood Gas, Arterial POC (07/30/2024 [...] Rate 2.0 L/min 07/30/2024 12:[address] [facility] IONIZED CALCIUM, ARTERIAL 1.12(L) 1.15 - 1.33 mmol/L 07/30/2024 12:[address] [facility] Glucose, Arterial 184 65 - 199 mg/dL 07/30/2024 12:[address] [facility] Comment:Glucose Concentratio n >=200 mg/dL plus symptoms is consistent with Diabetes Mellitus. Blood ARTERIAL BLOOD / Unknown 07/30/2024 12:57 AM EST 07/30/2024 12:58 AM EST Aubree Silverio MD POINT OF CARE TEST ORDERABLES [facility] [place] [address] * (ABNORMAL) Troponin - Single (07/29/2024 10:31 [...] can be found in the [facility] Test Catalog Troponin - https://[email or web address]-.testcatalog.org/catalogs/565/files/09728 Reference: Fourth Mcdonald Definition of Myocardial Infarction. Journal of the [place] [employer] 2018;72:7506-1496 Blood VENOUS BLOOD SPECIMEN / Unknown Venipuncture / Unknown 07/29/2024 10:31 PM EST 07/29/2024 10:36 PM EST Yrn Velazquez MD CHEMISTRY ORDERABL ES Performing Organization Address City/[facility]/ZIP Co de Phone Number [facility] [place] [address] * Potassium (07/29/2024 8:11 PM EST) Potassium 4.1 3.5 - 5.0 mMol/L 07/29/2024 8:[address] [facility] Blood VENOUS BLOOD SPECIMEN / Unknown Venipuncture / Unknown 07/29/2024 8:11 PM EST 07/29/2024 8:16 PM EST Aubree Silverio MD CHEMISTRY ORDERABL ES Performing Organization Address [facility]/ZIP Co de Phone Number [facility] [place] [address] * (ABNORMAL) Troponin - Single (07/29/2024 8:11 [...] can be found in the [facility] Test Catalog Troponin - https://[email or web address]-.testcatalog.org/catalogs/565/files/49076 Reference: Fourth Mcdonald Definition of Myocardial Infarction. Journal of the [place] [employer] 2018;72:3572-6783 Blood VENOUS BLOOD SPECIMEN / Unknown Venipuncture / Unknown 07/29/2024 8:11 PM EST 07/29/2024 8:16 PM EST Aubree Silverio MD CHEMISTRY ORDERABL ES [facility] [place] [address] * (ABNORMAL) Phosphorus (07/29/2024 8:11 PM EST) Phosphorus 2.1(L) 2.5 - 4.5 mg/dL 07/29/2024 8:[address] [facility] Blood VENOUS BLOOD SPECIMEN / Unknown Venipuncture / Unknown 07/29/2024 8:11 PM EST 07/29/2024 8:16 PM EST Aubree Silverio MD CHEMISTRY ORDERABL ES [facility] [place] [address] * POC, GLUCOSE (07/29/2024 8:09 PM EST) Glucometer, POC 142 65 - 199 mg/dL 07/29/2024 8:[address] [facility] Comment:Supplemental ranges: <140 mg/dL before meals <180 mg/dL all other times of the day. Blood CAPILLARY BLOOD / Unknown 07/29/2024 8:09 PM EST 07/29/2024 8:09 PM EST Aubree Silverio MD POINT OF CARE TEST ORDERABLES Performing Organization Address City/[facility]/ZIP Co de Phone Number [facility] [place] [address] * ABORH RECHECK (07/29/2024 6:43 PM EST) Pathologist [facility] ABORH Recheck AB POSITIVE 07/29/2024 10:13 PM EST [facility] Blood VENOUS BLOOD SPECIMEN / Unknown Venipuncture / Unknown 07/29/2024 6:43 PM EST 07/29/2024 7:15 PM EST Aubree Silverio MD BLOOD BANK LAB ORD ERABLES Performing Organization Address City/[facility]/ZIP Co de Phone Number [facility] [place] [address] * POC, GLUCOSE (07/29/2024 5:57 PM EST) [facility] Glucometer, POC 166 65 - 199 mg/dL 07/29/2024 5:[address] [facility] Comment:Supplemental ranges: <140 mg/dL before meals <180 mg/dL all other times of the day. Blood CAPILLARY BLOOD / Unknown 07/29/2024 5:57 PM EST 07/29/2024 5:57 PM EST Aubree Silverio MD POINT OF CARE TEST ORDERABLES Performing Organization Address City/[facility]/ZIP Co de Phone Number [facility] [place] [address] * Type and screen ([place]/CGP/MAGALIE) (07/29/2024 5:56 PM EST) Pathologist [facility] ABORH Type AB POSITIVE 07/29/2024 9:44 PM EST [facility] PATIENT HISTORY Not Found 07/29/2024 9:44 PM EST [facility] Expires at [id number] on: 08/01/2024 07/29/2024 9:44 PM EST [facility] ANTIBODY SCREEN AUTOMATED Negative 07/29/2024 9:44 PM EST [facility] T&S only valid at [place] [facility] 07/29/2024 9:44 PM EST [facility] Blood VENOUS BLOOD SPECIMEN / Unknown Venipuncture / Unknown 07/29/2024 5:56 PM EST 07/29/2024 6:07 PM EST Narrative [facility] - 07/29/2024 9:44 PM EST This Type and Screen result is only valid at the [facility] Aubree Silverio MD BLOOD BANK LAB ORD ERABLES [facility] [place] [address] * (ABNORMAL) Troponin - Single (07/29/2024 4:52 PM EST) [facility] Troponin-T, High Sensitivity >10,000(H ) <=22 ng/L [...] can be found in the [facility] Test Catalog Troponin - https://[facility]-.testcatalog.org/catalogs/565/files/73081 Reference: Fourth Mcdonald Definition of Myocardial Infarction. Journal of the [place] [employer] College of Cardiology 2018;72:4350-8907 Blood VENOUS BLOOD SPECIMEN / Unknown Venipuncture / Unknown 07/29/2024 4:52 PM EST 07/29/2024 4:57 PM EST Aubree Silverio MD CHEMISTRY ORDERABL ES Performing Organization Address City/[facility]/ZIP Co de Phone Number [facility] [place] [address] * EKG 12 Lead (07/29/2024 4:21 PM EST) Ventricular rate 72 BPM MUSE SYSTEM Atrial Rate 72 BPM MUSE SYSTEM P-R Interval 168 ms MUSE SYSTEM QRS Duration 82 ms MUSE SYSTEM Q-T Interval 392 ms MUSE SYSTEM QTC Calculated (Bezet) 429 ms MUSE SYSTEM Calculated P Ralston 71 degrees MUSE SYSTEM Calculated R [place] 77 degrees MUSE SYSTEM Calculated T [place] 28 degrees MUSE SYSTEM INTERPRETATION Sinus rhythm with Premature supraventricular complexes and Occasional Premature ventricular complexes Low voltage QRS 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) Lateral injury pattern ACUTE AR / STEMI Abnormal ECG When compared with ECG of 29-JUL-2024 13:43, (unconfirmed) Serial changes of evolving Anteroseptal infarct Present Confirmed by MD Marcus, Roverto (1963) on 07/31/2024 5:30:06 AM MUSE SYSTEM 07/29/2024 4:21 PM EST 07/31/2024 5:30 AM EST Aubree Silverio MD ECG ORDERABLES Performing Organization Address [facility]/ZIP Co de Phone Number MUSE SYSTEM * (ABNORMAL) Blood Gas, Arterial POC (07/29/2024 4:21 PM EST) pH, Arterial 7.37 7.35 - 7.45 07/29/2024 4:[address] [facility] PCO2, Arterial 36 35 - 45 mmHg 07/29/2024 4:[address] [facility] PO2, Arterial 71(L) 85 - 104 mmHg 07/29/2024 4:[address] [facility] Bicarbonate, Arterial 20.4 20.0 - 26.0 mmol/L 07/29/2024 4:[address] [facility] Base Excess, Arterial -4.8(L) -3.0 [...] CARE TEST ORDERABLES [facility] [place] [address] * POC, GLUCOSE (07/29/2024 4:19 PM EST) Glucometer, POC 185 65 - 199 mg/dL 07/29/2024 4:[address] [facility] Comment:Supplemental ranges: <140 mg/dL before meals <180 mg/dL all other times of the day. Blood CAPILLARY BLOOD / Unknown 07/29/2024 4:19 PM EST 07/29/2024 4:19 PM EST Aubree Silverio MD POINT OF CARE TEST ORDERABLES Performing Organization Address City/[facility]/ZIP Co de Phone Number [facility] [place] [address] * Blood culture (07/29/2024 4:08 PM EST) Blood Culture No growth at 120 hours 08/03/2024 5:[address] [facility] Blood VENOUS BLOOD SPECIMEN / Unknown Venipuncture / Unknown 07/29/2024 4:08 PM EST 07/29/2024 4:15 PM EST Aubree Silverio MD MICROBIOLOGY - BLO OD ORDERABLES Performing Organization Address City/[facility]/ZIP Co de Phone Number [facility] [place] [address] * Blood culture (07/29/2024 4:08 PM EST) Blood Culture No growth at 120 hours 08/03/2024 5:[address] [facility] Blood VENOUS BLOOD SPECIMEN / Unknown Venipuncture / Unknown 07/29/2024 4:08 PM EST 07/29/2024 4:26 PM EST Aubree Silverio MD MICROBIOLOGY - BLO OD ORDERABLES [facility] [place] [address] * XR Chest One View (07/29/2024 2:30 PM EST) WORKSTATION ID [id number] RAD Anatomical Region Laterality Modality Chest N/A [...] who have questions please contact the health medical care administrator that requested your imaging first. ? Electronically signed by: Chris Candelaria MD, [facility] ([phone]), at 07/29/2024 3:21 PM Narrative 07/29/2024 3:21 [...] patients who have questions please contactthe health medical care administrator that requested your imaging first. Electronically signed by: Chris Candelaria MD, [facility]([phone]), at 07/29/2024 3:21 PM Vahe Marvin MD IMG DX ORDERABLES * (ABNORMAL) APTT (07/29/2024 2:03 PM EST) Pathologist [facility] Partial Thromboplastin Time >160([facility]) 25 - 37 sec 07/29/2024 2:[address] [facility] Blood VENOUS BLOOD SPECIMEN / Unknown Venipuncture / Unknown 07/29/2024 2:03 PM EST 07/29/2024 2:13 PM EST Vahe Marvin MD HEMATOLOGY ORDERABLE S [facility] [place] [address] * (ABNORMAL) Prothrombin Time (07/29/2024 2:03 PM [...] MD HEMATOLOGY ORDERABLE S Performing Organization Address City/[facility]/ZIP Co de Phone Number [facility] [place] [address] * CRP, acute inflammation (07/29/2024 2:03 PM EST) C-Reactive Protein <3.0 <=4.9 mg/L 07/29/2024 2:[address] [facility] Blood VENOUS BLOOD SPECIMEN / Unknown Venipuncture / Unknown 07/29/2024 2:03 PM EST 07/29/2024 2:14 PM EST Vahe Marvin MD CHEMISTRY ORDERABLES Performing Organization Address City/[facility]/ZIP Co de Phone Number [facility] [place] [address] * Lipid Panel (Reflex Direct LDL) (07/29/2024 2:03 PM EST) Cholesterol, Total 133 mg/dL 07/29/2024 2:[address] [facility] Comment: Desirable: < 200 mg/dL Borderline High: 200 - 239 mg/dL High: > or = 240 mg/dL Triglyceride 45 mg/dL 07/29/2024 2:[address] [facility] Comment: Normal: <150 mg/dL Borderline [...] 2:03 PM EST 07/29/2024 2:14 PM EST [facility] - 07/29/2024 2:52 [...] Marvin MD CHEMISTRY ORDERABLES Performing Organization Address City/[facility]/ZIP Co de Phone Number [facility] [place] [address] * TSH [place] (07/29/2024 2:03 PM EST) [facility] Thyroid Stimulating Hormone 0.70 0.27 - 4.20 mcIU/mL 07/29/2024 2:[address] [facility] Blood VENOUS BLOOD SPECIMEN / Unknown Venipuncture / Unknown 07/29/2024 2:03 PM EST 07/29/2024 2:14 PM EST Vahe Marvin MD CHEMISTRY ORDERABLES Performing Organization Address [facility]/ZIP Co de Phone Number [facility] [place] [address] * Hemoglobin A1c (07/29/2024 2:03 PM EST) [facility] Hemoglobin A1c 5.3 4.3 - 5.6 % [...] red blood cell turnover may not be client representative of glycemic control. Reference Interval: 4.3 - 5.6% 5.7 - 6.4%: Consistent with prediabetes >=6.5%: Consistent with diagnosis of diabetes mellitus Estimated Average Glucose 07/29/2024 2:[address] [facility] Comment:Estimated Average Gl ucose not appropriate for patients over 70 years of age. Blood VENOUS BLOOD SPECIMEN / Unknown Venipuncture / Unknown 07/29/2024 2:03 PM EST 07/29/2024 2:14 PM EST [facility] - 07/29/2024 2:41 PM EST Estimated average glucose (eAG) is calculated from the equation described in: Quinten ALVES, Rikki J, Reno R, et al. ??Translating the A1C assay into estimated average glucose values. ??Diabetes Care 2008:31(8):3379-4884. Additional resources are available on the ADA website (diabetes.org). Vahe Marvin MD CHEMISTRY ORDERABLES [facility] [place] [address] * (ABNORMAL) CBC (with Diff) (07/29/2024 2:03 [...] 3.20 x10(3)/mc L 07/29/2024 2:[address] [facility] Monocyte % 2.9 % 07/29/2024 2:[address] [facility] Monocyte Absolute 0.56 0.30 - 0.90 x10(3)/mc L 07/29/2024 2:[address] [facility] Eos % 0.0 % 07/29/2024 2:[address] [facility] Eos Absolute <0.04 0.00 - 0.40 x10(3)/mc L 07/29/2024 2:[address] [facility] Basophil % 0.3 % 07/29/2024 2:18 PM [facility] Baso Absolute 0.05 0.00 - 0.10 x10(3)/mc L 07/29/2024 2:[address] [facility] Immature Gran % 0.5 % 2:18 PM [facility] Immature Gran Absolute 0.09(H) 0.00 - 0.04 x10(3)/mc L 07/29/2024 2:[address] [facility] Blood VENOUS BLOOD SPECIMEN / Unknown Venipuncture / Unknown 07/29/2024 2:03 PM EST 07/29/2024 2:13 PM EST Vahe Marvin MD HEMATOLOGY ORDERABLE S Performing Organization Address City/State/[facility] Co de Phone Number [facility] [place] [address] * Phosphorus (07/29/2024 2:03 PM EST) Phosphorus 2.5 2.5 - 4.5 mg/dL 07/29/2024 2:[address] [facility] Blood VENOUS BLOOD SPECIMEN / Unknown Venipuncture / Unknown 07/29/2024 2:03 PM EST 07/29/2024 2:14 PM EST Vahe Marvin MD CHEMISTRY ORDERABLES [facility] [place] [address] * Magnesium (07/29/2024 2:03 PM EST) Pathologist [facility] Magnesium 0.70 0.69 - 1.07 mMol/L 07/29/2024 2:[address] [facility] Blood VENOUS BLOOD SPECIMEN / Unknown Venipuncture / Unknown 07/29/2024 2:03 PM EST 07/29/2024 2:14 PM EST Vahe Marvin MD CHEMISTRY ORDERABLES Performing Organization Address City/[facility]/ZIP Co de Phone Number [facility] [place] [address] * (ABNORMAL) Comprehensive metabolic panel (07/29/2024 2:03 PM EST) Pathologist [facility] Glucose 243(H) 65 - 199 mg/dL 07/29/2024 [...] - 10.5 mg/dL 07/29/2024 3:[address] [facility] Protein, Total 6.0(L) 6.1 - [...] MD CHEMISTRY ORDERABLES [facility] [place] [address] * (ABNORMAL) Troponin - Single (07/29/2024 2:03 PM EST) [facility] Troponin-T, High Sensitivity >10,000(H ) <=22 ng/L [...] can be found in the [facility] Test Catalog Troponin - https://[facility]-.testcatalog.org/catalogs/565/files/23082 Reference: Fourth Mcdonald Definition of Myocardial Infarction. Journal of the [place] 2018;72:9523-9986 Blood VENOUS BLOOD SPECIMEN / Unknown Venipuncture / Unknown 07/29/2024 2:03 PM EST 07/29/2024 2:14 PM EST Vahe Marvin MD CHEMISTRY ORDERABLES [facility] [place] [address] * (ABNORMAL) Blood Gas, Venous POC (07/29/2024 2:01 PM EST) [facility] pH, Venous 7.30(L) 7.32 - 7.42 07/29/2024 2:[address] [facility] PCO2, Venous 42 38 - 58 mmHg 07/29/2024 2:[address] [facility] PO2, Venous 39 16 - [...] RDERABLES Performing Organization Address [facility]/State/ZIP Co de Phone Number [facility] [place] [address] * CARDIAC CATHETERIZATION (07/29/2024 1:20 PM EST) Anatomical Region Laterality Modality Other Narrative 07/29/2024 2:02 PM EST ?[facility] ? Cardiac Catheterization/Intervention Report ? Patient Name: Korey Montoya Kyrie. ? Procedure Date: 07/29/2024 ? A #: [id number] ? Primary Physician: Vahe Marvin ? Case #: [id number] ? File Name: [id number] ? Catheterization Order Number: [id number] ? [facility] ? Final Report [place], [place] ? Patient Name: ? Korey Montoya ?ID#: ?[id number] ? : ?1950 ? Procedure Date: ? [...] procedure was Emergent. The indication for ?the public works laborer visit is ACS less than or [...] guiding catheter and a 3.5 Fr [place] [address] ??20 Mhz using ?Manual pullback. ??Imaging [...] ? A premounted 3.00 x 22 mm Clinton Baraga (LOW) was deployed ? with a maximum [...] atmospheres. ??A premounted 3.00 x 08 mm Clinton Baraga (LOW) ? was deployed with a maximum [...] dose administered prior to arrival in the public works laborer. ?Recommended anti-platelet/anti-thrombotic regimen: ?Start aspirin 81 mg daily now and continue for 12 months then stop. ?Start clopidogrel 75 mg daily now and continue for indefinitely. ?These recommendations are made at the time of the intervention. Patient ?and provider preferences or a changing clinical situation may require ?modification of this regimen. Consult [facility] for ?questions. ?The 1 year [...] able ?to start weaning his inotropes/vasopressors. A Moody Colette catheter was ?placed demonstrating improvement in [...] ventricular assist device insertion, right heart ?catheterization, Moody (flow directed cath) insertion, access site ?angiography, vascular ultrasound, venous line / sheath insert and vascular ?closure device. ? Vahe S Shavonne, M.D. ? Electronically Signed by: Vahe Cobosstein, M.D. ? Report Finalized: 07/29/2024 ??13:55 ? Report Last Ammended: 07/30/2024 ??10:15 ? Procedure Note Vahe Marvin MD - 07/30/2024 [facility] Cardiac Catheterization/Intervention Report Patient Name: Korey Montoya Procedure Date: 07/29/2024 A #: [id number] Primary Physician: Vahe Marvin Case #: [id number] File Name: [id number] Catheterization Order Number: [id number] [facility] FinalReport [place], [place] Patient Name: Korey Montoya ID#:[id number] :1950 Procedure Date: July 29, 2024 Case [...] was designated as ASA Class IV. [facility] 4: Vulnerable. Diagnostic Tests: Electrocardiography: EKG was assessed by ECG. EKG was Abnormal. EKG showed STDeviation >= 0.5 mm. Medications Prior to Procedure: Angiotensin II Receptor Elvis and Statin. Indications for Diagnostic Cath: The priority of the diagnostic procedure was Emergent. Theindication for the public works laborer visit is ACS less than or [...] guiding catheter and a 3.5 Fr [place] [address] 20 Mhzusing Manual pullback. Imaging was [...] The priority for the procedure was Emergent.The [facility] indication for the procedure was STEMI-Immediate [...] The lesion was predilated with a 2.00mm [id number] MM balloon with a maximum inflation pressure of 12atmospheres. A premounted 3.00 x 22 mm Jeison Baraga (LOW) wasdeployed with a maximum inflation pressure [...] atmospheres. A premounted 3.00 x 08 mm Clinton Baraga(LOW) was deployed with a maximum inflation pressure [...] dose administered prior to arrival in the public works laborer. Recommended anti-platelet/anti-thrombotic regimen: Start aspirin 81 mg daily now and continue for 12 months then stop. Start clopidogrel 75 mg daily now and continue for indefinitely. These recommendations are made at the time of the intervention.Patient and provider preferences or a changing clinical situation mayrequire modification of this regimen. Consult [place] Interventional Cardiologyfor questions. The 1 year bleeding [...] wereable to start weaning his inotropes/vasopressors. A Moody Colette catheterwas placed demonstrating improvement in his [...] ventricular assist device insertion, right heart catheterization, Moody (flow directed cath) insertion, access site angiography, [...] TEST O RDERABLES [facility] [place] [address] * (ABNORMAL) BLOOD GAS, POC (07/29/2024 12:12 [...] CARE TEST O RDERABLES Performing Organization Address City/State/[facility] Co de Phone Number [facility] [place] [address] documented in this encounter Visit Diagnoses Not [...] Routine documented in this encounter Care Teams Real Estate Paralegal Relationship Specialty Start Date End Date Yoel Artis APRN [address] [place] [address] PCP - General Internal Medicine 11/18/22 07/29/24 documented as of this encounter
--- OUTSIDE RECORDS SUMMARY | 2024-08-29 10:30 | XMS_ITS | Encounter Summary ---
Author Organization [facility]ly [facility] Address [facility] [place] [address] Care Team Providers Care Customs Broker Name Role Phone Yoel Artis Ute ALCALA Primary Care Provider [phone] Reason for Visit * Auth/Cert (Routine) Specialty Diagnoses / Procedures Referred By Theodore t Referred To Contact Diagnoses AIRO Procedures [place] [employer] [facility] Referral ID Status Reason Start Date Expiration Date Visits Re quested Visits Authorized [id number] 1 1 Encounter Details Date Type Department Care Team (Latest Contact Info) Description 07/29/2024 6:32 PM EST - 07/29/2024 11:59 PM EST Hospital Encounter [facility] at [address] [phone] Arvin Becerra MD [facility] [place] [address] Discharge Disposition: Home Social History Tobacco Use Types Packs/Day Years Used Date Smoking Tobacco: Former Cigarettes Smokeless Tobacco: Never Alcohol Use Standard Drinks/Week Comments Not Currently 0 (1 standard drink = 0.6 oz pur e alcohol) [facility] Utilities Answer Date Recorded In the past [...] in the past 12 m [facility], were you homeless or living in a retirement (including now)? No 07/30/2024 DH IPV Inpatient [...] evening. 04/17/2023 08/04/2024 nitroGLYcerin (NITROLINGUAL) 400 mcg/spray [place], Non-AerosolIndications: Proctalgia fugax,Fecal smearing,Constipation, unspecified constipation type 1 spray to anus for proctalgia fugax as needed, not to exceed once daily 12 g 06/01/2023 08/04/2024 documented as of this encounter Plan of Treatment Upcoming Encounters Date Type Department Care Team (Late st Contact Info) Description 10/01/2024 10:00 AM EST Office Visit Cardiology at [address] [phone] Mushtaq Murphy APRN documented as of this encounter Visit Diagnoses Not on filedocumented in this encounter Care Teams Customs Broker Relationship Specialty Start Date End Date Yoel Artis APRN [address] [place] [id number] PCP - General Internal Medicine 11/18/22 07/29/24 documented as of this encounter
--- OUTSIDE RECORDS SUMMARY | 2024-08-29 10:30 | XMS_ITS | Encounter Summary ---
Author Organization Formerly [facility] [place] [address] Care Team Providers Care Assistant Professor Of Art Name Role Phone Yoel Artis Ute ALCALA Primary Care Provider [phone] Encounter Details Date Type Department Care Team (Late st Contact Info) Description 07/29/2024 Interpretation Only [facility] [address] [place] [phone] Chaparro Montana MD [address] [place] [address] Social History Tobacco Use Types Packs/Day Years Used Date Smoking Tobacco: Former Cigarettes Smokeless Tobacco: Never Alcohol Use Standard Drinks/Week Comments Not Currently 0 (1 standard drink = 0.6 oz pur e alcohol) [facility] Utilities Answer Date Recorded In the past 12 months has [employer], gas, oil, or water [employer] threatened to shut off services in [...] any time in the past 12 m [facility], were you homeless or living in a mcc (including now)? No 07/30/2024 IPV Inpatient Questions [...] 10:00 AM EST Office Visit Cardiology at [address] [phone] Mushtaq Murphy APRN documented as of this encounter Procedures Procedure Name Priority Date/Time Associated Diagnosis Comments XR CHEST ONE VIEW STAT 07/29/2024 10: 50 AM EST documented in this encounter Results * XR Chest One View (07/29/2024 10:50 AM EST) PT CLASS E RAD ADMITDTTM [id number] RAD PT RAD MD INFO [id number]^Jordy henry^Chaparro RAD EXAM DESC XCXR1^XR Chest 1 [...] who have questions please contact the health pediatric acute care unit nurse that requested your imaging first. ? [...] patients who have questions please contactthe health pediatric acute care unit nurse that requested your imaging first. Chaparro Montana MD IMG DX ORDERABLES documented in this encounter Visit Diagnoses Not on filedocumented in this encounter Care Teams Assistant Professor Of Art Relationship Specialty Start Date End Date Yoel Artis APRN [address] [place] [phone] PCP - General Internal Medicine 11/18/22 07/29/24 documented as of this encounter
--- OUTSIDE RECORDS SUMMARY | 2024-08-29 10:30 | XMS_ITS | Encounter Summary ---
[place] [address] Care Team Providers Care Teleradiologist Name Role Phone Alexia Mtz FREDRICK Primary Care Provider [phone] Reason for Visit * Auth/Cert (Routine) Specialty Diagnoses / Procedures Referred By Theodore muro Referred To Contact Diagnoses STEMI (ST elevation myocardial infarction) STEMI Procedures ER SUI Vahe Marvin MD [facility] [place] [address] [facility] Referral ID Status Reason Start Date Expiration Date Visits Re quested Visits Authorized [id number] 1 1 Encounter Details Date Type Department Care Team (Late st Contact Info) Description 07/31/2024 4:30 PM EST - 07/31/2024 5:30 PM EST Surgery Production [place] [id number] Maldonado Luis MD [facility] [place] [address] CARDIAC CATHETERIZATION Social History Tobacco Use Types Packs/Day Years Used Date Smoking Tobacco: Former Cigarettes Smokeless Tobacco: Never Alcohol Use Standard Drinks/Week Comments Not Currently 0 (1 standard drink = 0.6 oz pur e alcohol) [facility] Utilities Answer Date Recorded In the past 12 months has [employer] electric, gas, oil, or water company threatened [...] in the past 12 m [facility], were you homeless or living in [...] please contact your inpatient physician through the [facility] Library Serials Assistant . Issues afterhours and on weekends will [...] EKG. Patient transferred via air ambulance to [facility] on 07/29 for LHC and LOW to [...] EKG. Was transferred via air ambulance to [facility] for further management and LHC demonstrated 100% [...] the next year. Access was via right DISABILITY HEARING OFFICER and this sitewas clean, dry and intact [...] for Chest pain. Replaces: nitroGLYcerin 400 mcg/spray [place], Non-Aerosol 0.4 mg Quantity: 90 tablet Refills: [...] Refills: 0 STOPPED Medications nitroGLYcerin 400 mcg/spray [place], Non-Aerosol Commonly known as: NITROLINGUAL Replaced by: [...] of one year. After this time, your houseperson will determine if you need to continue [...] away. Stay on the phone. The emergency shuffle board operator will tell you what to do. [...] appointments: During 8am-5pm Tuesday through Tuesday call [phone] to speak with a nurse in the cardiology clinic All other times call [phone] and ask to speak to the enterprise systems engineer design sales consultant. Follow up Appointments: PCP Alexia Mtz, REMOTE MEDICAL CODER [phone]. Please call to establish a follow up appointment within 1-2 weeks of discharge. Cardiology. Referral to heart failure has been sent. General Instructions None Future Appointments and Orders Future Orders Complete By Expires Referral to Cardiac Rehab [[id number] Custom] As directed Process Instructions: If no progress note charted, please enter Clinical details in comments. Scheduling Instructions: Questions: My question or request is: STEMI, PCI- cardiac rehab at [facility] Referral to Cardiology [REF12 [...] of one year. After this time, your houseperson will determine if you need to continue [...] away. Stay on the phone. The emergency shuffle board operator will tell you what to do. [...] appointments: During 8am-5pm Tuesday through Tuesday call [phone] to speak with a nurse in the cardiology clinic All other times call [phone] and ask to speak to the enterprise systems engineer design sales consultant. Follow up Appointments: PCP Alexia Mtz, REMOTE MEDICAL CODER [phone]. Please call to establish a follow up [...] EKG. Patient transferred via air ambulance to [facility] on 07/29 for LHC and LOW to LAD for 100% occlusion Social History: Pt lives with his in a 1 level home with 2 NAOMI. 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 He [...] Total time: 35 (tef) minutes Time IN/OUT: [id number] ZAIDA DUBOSE PT Pager: [phone] Physical Therapy Inpatient Rehabilitation Department * Yrn Ward MD - 08/03/2024 10:38 AM EST CV HOSPITALIST 2 - [facility] DAILY PROGRESS NOTE Page [phone] to reach a provider 04/04 Admit Date: [...] Compared to the overnight study by the design sales consultant fellow the impella position is stable. 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 [facility] 07/29/24 Conclusions: * One vessel coronary artery disease (LAD) * Mild pulmonary hypertension * Elevated pulmonary capillary wedge pressure * Successful stent insertion of the proximal LAD lesion * See Dual Antiplatelet (DAPT) Recommendations above * Successful impella placement for cardiogenic shock. Telemetry: I have personally reviewed and interpreted the telemetry from the last 24 hours. [facility] Assessment: ASSESSMENT: Korey Montoya is a 74 y.o. male w/ PMH of hypertension, HLD, and BPH who presents for chief concern of chest pain after being found to have ST elevations on EKG. Patient transferred via air ambulance to [facility] on 07/29 for LHC and LOW to [...] to be determined OT: PCP Alexia Mtz, REMOTE MEDICAL CODER [phone] * Zaida Dubose, PT - 08/02/2024 2:08 PM EST Physical Therapy Evaluation Patient profile: Korey Montoya is a 74 y.o. male w/ PMH of hypertension, HLD, and BPH who presents for chief concern of chest pain after being found to have ST elevations on EKG. Patient transferred via air ambulance to [facility] on 07/29 for LHC and LOW to LAD for 100% occlusion Social History: Pt lives with his in a 1 level home with 2 NAOMI. 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 He [...] Total time: 37 (eval) minutes Time IN/OUT: [id number] ZAIDA DUBOSE, PT Pager: [phone] Physical Therapy Inpatient Rehabilitation Department * Gagan [...] EKG. Patient transferred via air ambulance to [facility] on 07/29 for LHC and LOW to LAD for 100% occlusion. TTE showed apical akinesis and inferior hypokinesis with EF 20%. RHC showed elevated filling pressures. Impella placed and P-level 6 at time of transfer to [facility]. CI initially 1.97, improved to 2.2 [...] organfailure/deterioration? No Gagan Catherine MD 08/02/2024 * Krytsal Parker MD - 08/02/2024 6:43 AM EST Images from the original note were not included. Cardiology ICU Progress Note Patient info: Name: Korey Montoya : 1950 PCP: Alexia Mtz APRN PCP phone number: [phone] Date of Admission: 07/29/2024 ( Hospital Day 4 days ) Attending:Bridgette Stauffer MD ID: Korey Montoya is a 74 y.o. male w/ PMH of hypertension, HLD, and BPH on Hospital Day4 for chief concern of chest pain after being found to have ST elevations on EKG. Patient transferred via air ambulance to [facility] on 07/29 for LHC and LOW to [...] 07/29/24 1621 PHART 7.48* 7.44 7.38 7.37 [id number] 29* 29* 34* 36 PO2ART 71* 109* 141* 71* [id number] 20.6 19.4* 19.5* 20.4 VBG (Venous Blood Gas) Recent Labs 07/29/24 1401 PHVEN 7.30* PO2VEN 39 GVE9ODW 20.1* Mixed Venous Sat No results for input(s): H2GGRJ7 in the last 168 hours. Objective: Vitals [...] 07/29/24 1621 PHART 7.48* 7.44 7.38 7.37 VYP5WXJ 29* 29* 34* 36 PO2ART 71* 109* 141* 71* IBV1EID 20.6 19.4* 19.5* 20.4 VBG (Venous Blood Gas) Recent Labs 07/29/24 1401 PHVEN 7.30* PO2VEN 39 SHM0ZOS 20.1* Mixed Venous Sat No results for input(s): U4BHMK1 in the last 168 hours. Microbiology: Microbiology Results (Last 30 days) Procedure Component Value Units Date/Time Blood culture [[id number]] Collected: 07/29/241607 Lab Status: Preliminary result Specimen: Blood, Venous Updated: 08/01/241700 Blood Culture No growth at 72 hours Blood culture [[id number]] Collected: 07/29/241607 Lab Status: Preliminary result Specimen: Blood, Venous Updated: 08/01/241700 Blood Culture No growth at 72 hours Imaging: Results for orders placed or performed during the hospital encounter of 07/29/24 XR Chest One View (Exam End: 07/29/2024 2:30 PM) Result Value WORKSTATION ID [id number] Impression 1. No pulmonary edema. 2. No pleural effusion. 3. No pneumothorax. Thank you for letting us participate in the care of this patient. If you are a health care provider and have any questions regarding this report, please contact the number below. For patients who have questions please contact the health manager career that requested your imaging first. ( 07/30/24) [...] Compared to the overnight study by the design sales consultant fellow the impella position is stable. [...] EKG. Patient transferred via air ambulance to [facility] on 07/29 for LHC and LOW to [...] Continue home tamsulosin 0.04mg Gastrointestinal/Metabolic/Nutrition #EDISON Hematology #EDSION Infection #Leukocytosis, down trending - f/ Bcx(07/29) - NGTD #Routine Diet: Cardiac diet DVT Prophylaxis: Lovenox GI Prophylaxis: Not indicated Code Status: Attempt Cardiopulmonary Resuscitation - Inpatient Dispo: Pending clinical course Susannah Ornelas MD Internal Medicine, PGY-1 Cardiology, [facility] 08/02/24 12:45 PM CARDIOLOGY STAFF NOTE [...] today). Transfer to floor. Krystal Parker MD, [facility], FASE Staff Extractor Plant Operator sports book writer * Gagan Catherine MD - 08/01/2024 11:12 [...] EKG. Patient transferred via air ambulance to [facility] on 07/29 for LHC and LOW to LAD for 100% occlusion. TTE showed apical akinesis and inferior hypokinesis with EF 20%. RHC showed elevated filling pressures. Impella placed and P-level 6 at time of transfer to [facility]. CI initially 1.97, improved to 2.2 After impella. Received about 3 L of fluid during procedural course. Patient initially required norepinephrine 30, epinephrine 10, and vasopressin 0.04 for hemodynamic support, which was weaned upon arrival to [facility] to norepinephrine 20and levo 0.04 N [...] PCP: Alexia Mtz APRN PCP phone number: [phone] Date of Admission: 07/29/2024 ( Hospital Day 3 days ) Attending:Krystal Parker MD ID: Korey Montoya is a 74 y.o. male w/ PMH of hypertension, HLD, and BPH on Hospital Day3 for chief concern of chest pain after being found to have ST elevations on EKG. Patient transferred via air ambulance to [facility] on 07/29 for LHC and LOW to [...] 07/29/24 1621 PHART 7.48* 7.44 7.38 7.37 QAB3JJK 29* 29* 34* 36 PO2ART 71* 109* 141* 71* KOS9JMR 20.6 19.4* 19.5* 20.4 VBG (Venous Blood Gas) Recent Labs 07/29/24 1401 PHVEN 7.30* PO2VEN 39 NYC7YYD 20.1* Mixed Venous Sat No results for input(s): B2BGMG2 in the last 168 hours. PA Catheter [...] 07/29/24 1621 PHART 7.48* 7.44 7.38 7.37 XTX2IHD 29* 29* 34* 36 PO2ART 71* 109* 141* 71* CZO9BBN 20.6 19.4* 19.5* 20.4 VBG (Venous Blood Gas) Recent Labs 07/29/24 1401 PHVEN 7.30* PO2VEN 39 FFI1DKF 20.1* Mixed Venous Sat No results for input(s): P6IHSK1 in the last 168 hours. Microbiology: Microbiology Results (Last 30 days) Procedure Component Value Units Date/Time Blood culture [[id number]] Collected: 07/29/24 160 Lab Status: Preliminary result Specimen: Blood, Venous Updated: 07/31/24 170 Blood Culture No growth at 48 hours Blood culture [[id number]] Collected: 07/29/24 1608 Lab Status: Preliminary result Specimen: Blood, Venous Updated: 07/31/24 1701 Blood Culture No growth at 48 hours Imaging: Results for orders placed or performed during the hospital encounter of 07/29/24 XR Chest One View (Exam End: 07/29/2024 2:30 PM) Result Value WORKSTATION ID [id number] Impression 1. No pulmonary edema. 2. No pleural effusion. 3. No pneumothorax. Thank you for letting us participate in the care of this patient. If you are a health care provider and have any questions regarding this report, please contact the number below. For patients who have questions please contact the health manager career that requested your imaging first. ( 07/30/24) [...] Compared to the overnight study by the design sales consultant fellow the impella position is stable. [...] EKG. Patient transferred via air ambulance to [facility] on 07/29 for LHC and LOW to [...] Susannah Ornelas MD Internal Medicine, PGY-1 Cardiology, [facility] 08/01/24 7:13 AM CARDIOLOGY STAFF NOTE [...] with him; questions answered. Krystal Parker MD, [facility], [facility] Staff Extractor Plant Operator sports book writer * Krystal Parker MD - 07/31/2024 1:06 [...] EKG. Patient transferred via air ambulance to [facility] on 07/29 for LHC and LOW to LAD for 100% occlusion. TTE showed apical akinesis and inferior hypokinesis with EF 20%. RHC showed elevated filling pressures. Impella placed and P-level 6 at time of transfer to [facility]. CI initially 1.97, improved to 2.2 After impella. Received about 3 L of fluid during procedural course. Patient initially required norepinephrine 30, epinephrine 10, and vasopressin 0.04 for hemodynamic support, which was weaned upon arrival to [facility] to norepinephrine 20and levo 0.04 N [...] PCP: Alexia Mtz APRN PCP phone number: [phone] Date of Admission: 07/29/2024 ( Hospital Day 2 days ) Attending:Krystal Parker MD ID: Korey Montoya is a 74 y.o. male w/ PMH of hypertension, HLD, and BPH on Hospital Day2 for chief concern of chest pain after being found to have ST elevations on EKG. Patient transferred via air ambulance to [facility] on 07/29 for LHC and LOW to [...] 0057 07/29/24 1621 PHART 7.44 7.38 7.37 XSY3UYZ 29* 34* 36 PO2ART 109* 141* 71* IIT8LMG 19.4* 19.5* 20.4 VBG (Venous Blood Gas) Recent Labs 07/29/24 1401 PHVEN 7.30* PO2VEN 39 NQM5TNN 20.1* Mixed Venous Sat No results for input(s): O2RYIF4 in the last 168 hours. PA Catheter [...] 0057 07/29/24 1621 PHART 7.44 7.38 7.37 TJS4WDC 29* 34* 36 PO2ART 109* 141* 71* DZI2IAU 19.4* 19.5* 20.4 VBG (Venous Blood Gas) Recent Labs 07/29/24 1401 PHVEN 7.30* PO2VEN 39 GYQ1VLY 20.1* Mixed Venous Sat No results for input(s): P8BPDH1 in the last 168 hours. Microbiology: Microbiology Results (Last 30 days) Procedure Component Value Units Date/Time Blood culture [[id number]] Collected: 07/29/241607 Lab Status: Preliminary result Specimen: Blood, Venous Updated: 07/30/241700 Blood Culture No Growth at 18-24 hrs. Blood culture [[id number]] Collected: 07/29/241607 Lab Status: Preliminary result Specimen: Blood, Venous Updated: 07/30/241700 Blood Culture No Growth at 18-24 hrs. Imaging: Results for orders placed or performed during the hospital encounter of 07/29/24 XR Chest One View (Exam End: 07/29/2024 2:30 PM) Result Value WORKSTATION ID [id number] Impression 1. No pulmonary edema. 2. No pleural effusion. 3. No pneumothorax. Thank you for letting us participate in the care of this patient. If you are a health care provider and have any questions regarding this report, please contact the number below. For patients who have questions please contact the health manager career that requested your imaging first. ( 07/30/24) [...] Compared to the overnight study by the design sales consultant fellow the impella position is stable. [...] EKG. Patient transferred via air ambulance to [facility] on 07/29 for LHC and LOW to [...] work to optimize volume status while continuing iyzxnvh-vrjshq-fjrcqyuxtm therapies at this time. Obtain comprehensive TTE. [...] ILL WITH THESE DIAGNOSES BEING MANAGED BY [facility] TEAM: # Anterior STEMI, late-presenting # [...] EKG. Patient transferred via air ambulance to [facility] on 07/29 for LHC and LOW to LAD for 100% occlusion. TTE showed apical akinesis and inferior hypokinesis with EF 20%. RHC showed elevated filling pressures. Impella placed and P-level 6 at time of transfer to [facility]. CI initially 1.97, improved to 2.2 After impella. Received about 3 L of fluid during procedural course. Patient initially required norepinephrine 30, epinephrine 10, and vasopressin 0.04 for hemodynamic support, which was weaned upon arrival to [facility] to norepinephrine 20and levo 0.04 N [...] PCP: Yoel Artis APRN PCP phone number: [phone] Date of Admission: 07/29/2024 ( Hospital Day 1 day ) Attending:Aubree Silverio MD ID: Korey Montoya is a 74 y.o. male w/ PMH of hypertension, HLD, and BPH on Hospital Day1 for chief concern of chest pain after being found to have ST elevations on EKG. Patient transferred via air ambulance to [facility] on 07/29 for LHC and LOW to LAD for 100% occlusion. 24 Hour Events/Subjective: Yesterday: - Admitted to the [facility] - After his LHC, he demonstrated [...] 0057 07/29/24 1621 PHART 7.44 7.38 7.37 LBJ6FFK 29* 34* 36 PO2ART 109* 141* 71* QBY0ZLI 19.4* 19.5* 20.4 VBG (Venous Blood Gas) Recent Labs 07/29/24 1401 PHVEN 7.30* PO2VEN 39 DFE6QTY 20.1* Lactate ( Last 12 hours) 1.3 >> 1.2 Mixed Venous Sat No results for input(s): F4QUVI6 in the last 168 hours. PA Catheter [...] 0057 07/29/24 1621 PHART 7.44 7.38 7.37 DXC9GMI 29* 34* 36 PO2ART 109* 141* 71* LZO4WMK 19.4* 19.5* 20.4 VBG (Venous Blood Gas) Recent Labs 07/29/24 1401 PHVEN 7.30* PO2VEN 39 EHG0HYQ 20.1* Mixed Venous Sat No results for input(s): Z7QHLK8 in the last 168 hours. Microbiology: Microbiology Results (Last 30 days) Procedure Component Value Units Date/Time Blood culture [[id number]] Collected: 07/29/24 1608 Lab Status: In process Specimen: Blood, Venous Updated: 07/29/24 1626 Blood culture [[id number]] Collected: 07/29/24 1608 Lab Status: In process Specimen: Blood, Venous Updated: 07/29/24 1615 Imaging: Results for orders placed or performed during the hospital encounter of 07/29/24 XR Chest One View (Exam End: 07/29/2024 2:30 PM) Result Value WORKSTATION ID [id number] Impression 1. No pulmonary edema. 2. No pleural effusion. 3. No pneumothorax. Thank you for letting us participate in the care of this patient. If you are a health care provider and have any questions regarding this report, please contact the number below. For patients who have questions please contact the health manager career that requested your imaging first. Medications Scheduled [...] EKG. Patient transferred via air ambulance to [facility] on 07/29 for LHC and LOW to [...] EKG. Patient transferred via air ambulance to [facility] on 07/29 for LHC and LOW to [...] EKG. Was transferred via air ambulance to [facility] for further management and [facility] demo nstrated 100% occlusion. No significant RCA, LMCA, or LCX disease. LOW placed in LAD with some residual distal disease meriting placement of overlapping distal stent. TTE showed apical akinesis and inferior hypokinesis with EF 20%. RHC showed elevated filling pressures. Impella placed and P-level 6 at time of transfer to [facility]. CI initially 1.97, improved to 2.2 After impella. Received about 3 L of fluid during procedural course. Patient initially required norepinephrine, epinephrine, and vasopressin for hemodynamic support, which was weaned upon arrival to [facility] to norepinephrine 20 and levo 0.04 [...] (WRVU 4.57) performed by Brandan Mcgovern MD [facility] ENDOSCOPY Significant Family History: Family History Problem [...] mouth. Past Week nitroGLYcerin (NITROLINGUAL) 400 mcg/spray [place], Non-Aerosol 1 spray to anus for proctalgia [...] 3.5 guiding catheter and a 3.5 Fr [place] [facility] [place] [facility] 20 Mhz using Manual pullback. Imaging [...] atmospheres. A premounted 3.00 x 22 mm [place] (LOW) was deployed with a maximum inflation [...] atmospheres. A premounted 3.00 x 08 mm [place] (LOW) was deployed with a maximum inflation [...] a limited study performed by a fellow design sales consultant to evaluate for cardiogenic shock with [...] Compared to the overnight study by the design sales consultant fellow the impella position is stable. [...] EKG. Patient transferred via air ambulance to [facility] on 07/29 for LHC and LOW to [...] PCP: Yoel Artis APRN PCP phone number: [phone] Date of Admission: 07/29/2024 ( Hospital Day 0 days ) Attending:Aubree Silverio MD ID: Korey Montoya is a 74 y.o. male w/ PMH of hypertension, HLD, and BPH who presents for chief concern of chest pain after being found to have ST elevations on EKG. Patient transferred via air ambulance to [facility] on 07/29 for LHC and LOW to LAD for 100% occlusion. HPI: Korey Montoya is a 74 y.o. male w/ PMH of hypertension, HLD, and BPH who presents for chief concern of chest pain after being found to have ST elevations on EKG. Patient transferred via air ambulance to [facility] on 07/29 for LHC and LOW to [...] EKG. Was transferred via air ambulance to [facility] for further management and LHC demonstrated 100% [...] (WRVU 4.57) performed by Brandan Mcgovern MD [facility] ENDOSCOPY Family History Family History Problem Relation [...] Blood Gas) No results for input(s): PHART, CTV7NCV, PO2ART, LPD5KWA, LACTATEVEN, NQA3GTL, PFRATIOART2 in the last 168 hours. VBG (Venous Blood Gas) Recent Labs 07/29/24 1401 PHVEN 7.30* PO2VEN 39 NUJ8CRH 20.1* Mixed Venous Sat No results for input(s): L6AWNJ9 in the last 168 hours. PA Catheter [...] Blood Gas) No results for input(s): PHART, JKR2EZN, PO2ART, NEU9SVK, LACTATEVEN, SIE7YJT, PFRATIOART2 in the last 168 hours. VBG (Venous Blood Gas) Recent Labs 07/29/24 1401 PHVEN 7.30* PO2VEN 39 GNA3NHQ 20.1* Mixed Venous Sat No results for input(s): U9UXEH2 in the last 168 hours. Microbiology: Microbiology [...] EKG. Patient transferred via air ambulance to [facility] on 07/29 for LHC. Found to have 100% occlusion of LAD for which he underwent LOW to LAD.Otherwise no other significant vessel disease. Fahad is currently hemodynamically tenuous but improving upon admission to [facility], requiring hemodynamic support with norepinephrine and vasopressin at time of admission along with mechanical support with Impella device. Reassuringly, he demonstrates decreasing pressor requirements since admission to [facility], with epinephrine completely weaned. He does [...] Bernardo Amos MD Internal Medicine, PGY-3 Cardiology, [facility] 07/29/24 3:14 PM Cardiology Attending Note [...] MD, FACP, FACC Section of Cardiovascular Medicine [facility] [employer]iler Operatorpipe fitter fire sprinkler systems [facility] [employer] [facility] This patient meets or has met [...] to the planned procedure. Hand Hygiene: The urology surgeon did perform hand hygiene prior to arterial [...] ease. Good wave form. Ivan Hernandez MD Sterilization Technician Associated attestation - Rolando Yeh MD - [...] in an outpatient cardiac rehabilitation program at [facility] was discussed. Patient agrees [...] No Patient is insured through: Primary Insurance: [facility] MANAGED MEDICARE Payor: [facility] MANAGED MEDICARE / Plan: [facility] MANAGED MEDICARE COMPLETE / Product Type: [...] Date of Discharge: 08/04/2024 Gaby Wong RN, [phone] * Initial Assessments - Char Meza, OT - 08/03/2024 10:00 AM EST Occupational Therapy Evaluation Patient profile: Korey Montoya is a 74 y.o. male admitted on 07/29/2024 w/ PMH of hypertension, HLD, and BPH who presents for chief concern of chest pain after being found to have ST elevations onEKG. Patient transferred via air ambulance to [facility] on 07/29 for LHC and LOW to [facility] for 100% occlusion. Past Medical History: Diagnosis Date ADHD HLD (hyperlipidemia) HTN (hypertension) Tremor Past Surgical History: Procedure Laterality Date HAND SURGERY PRO COLONOSCOPY, REMV LESN, SNARE N/A 08/30/2023 COLONOSCOPY, POLYPECTOMY, REMOVAL LESION BY SNARE (WRVU 4.57) performed by Brandan Mcgovern MD [facility] ENDOSCOPY Social History: Patient lives with his . Home Setup: 2 NAOMI to a 1 level home. DME: none Baseline ADL/Mobility: Independent with ADLs and IADLs. Enjoys walking. able assist as needed. Precautions/Special Considerations: Full code. Risk for falls. Subjective: I have access to an [employer] weight gym. (Educated to wait for MD [...] evaluation only Total Minutes, Occupational Therapy: 14 ([id number] (evaluation)) 2017 OT Evaluation Code Rationale: Diagnosis [...] and measurable assessment of functional outcome. Pager: [phone] Char Meza OT 08/03/2024 Occupational Therapy Rehabilitation [...] (Interventions Implemented as Appropriate) Flowsheets (Taken 08/01/2024 5077) Outcome Summary: A+O, no pain. NSR. MAP [...] Procedure Note: Patient Name: Korey Montoya : [id number] MR#: [id number] Case Date: 07/31/2024 Library Serials Assistant: Surgeons and Role: * Maldonado Luis MD - Primary * Quinten Charles PA - Physician Machine Sizer Preoperative diagnosis: shock, impella Postoperative diagnosis: * same * Procedure(s) performed: Impella removal form right DISABILITY HEARING OFFICER Access: Right DISABILITY HEARING OFFICER A time-out was conducted prior to the [...] surrogate would be surrogate decision maker per [place] surrogate decision making law. (Only good for 180 days) Any patient receiving care in [place] must abide by ID law. The hierarchy for surrogate decision making [...] (i) The agent with financial power of deputy county attorney or a conservator appointed in [...] homeless or living in a long-term (including now)?: No In the past 12 months has the [employer] gas, oil, or water [employer] threatened to shut off services in your [...] it) Home Address confirmed as: Mailing Address: [facility] [address] [facility] [address] Physical Address: [address] [place], [place] Social & Family Supports: All names [...] points: Addiction likely Health/Prescription Coverage: Primary Insurance: [facility] [employer] MEDICARE Payor: [employer] MANAGED MEDICARE / Plan: [facility] MANAGED MEDICARE COMPLETE / Product Type: *No Product type* / Secondary Insurance: N/A ; Prescription Coverage: Yes Preferred Pharmacy: [address] [address] Status: Patient is a : No Primary Care Provider confirmed: Alexia Mtz, [employer] [phone] Patient/Caregiver Goals of Treatment: return home Potential [...] 07/29/2024 6:25 PM EST 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 CXR and EKG [...] Procedure Note: Patient Name: Korey Montoya : [id number] MR#: [id number] Case Date: 07/29/2024 Library Serials Assistant: Surgeons and Role: * Vahe Marvin MD - Primary * Susannah Watts PA - Physician Machine Sizer Preoperative diagnosis: STEMI Postoperative diagnosis: * STEMI, LAD Artery * * Cardiogenic Shock * Procedure(s) performed: [facility] Coronary angiogram Stent insertion coronary IVUS coronary Venous line insert [facility] [place] Colette Catheter Vascular closure device Ventricular assist [...] x 22 mm to 14 deonna JEISON [place] with LIZ 3 flow. Residual distal disease at distal stent, overlapping distal stent was inserted with 3.0 x 8 mm JEISON [place]. Systolic's in the 80's sustained. Patient re [...] 10:00 AM EST Office Visit Cardiology at [address] [phone] Mushtaq Murphy, [employer] MED[employer]ER Scheduled Orders Name Type Priority Associated Diagnoses [...] (with Diff) (08/04/2024 6:08 AM EST) Pathologist [facility] White Blood Cell 7.27 4.00 - 9.50 x10(3)/mc L 08/04/2024 6:39 AM [facility] Red Blood Cell 4.28(L) 4.58 - 5.54 x10(6)/mc L 08/04/2024 6:39 AM [facility] Hemoglobin 11.6(L) 13.7 - 16.5 g/dL 08/04/2024 6:39 AM [facility] Hematocrit 34.8(L) 40.5 - 48.5 % 08/04/2024 6:39 AM [facility] Mean Cell Volume 81.3(L) 82.9 - 93.1 fL 08/04/2024 6:39 AM [facility] Mean Cell Hemoglobin 27.1(L) 27.5 - 32.1 pg 08/04/2024 6:39 AM [facility] Mean Cell Hemoglobin Concentration 33.3 32.0 - 35.7 g/dL 08/04/2024 6:39 AM [facility] Platelet 178 145 - 357 x10(3)/mc L 08/04/2024 6:39 AM [facility] Mean Platelet Volume 10.6 7.6 - 12.9 fL 08/04/2024 6:39 AM [facility] RDW Standard Deviation 42.0 36.0 - 45.0 fL 08/04/2024 6:39 AM [facility] RDW coefficient of variation 14.3(H) 11.4 - 13.8 % 08/04/2024 6:39 AM [facility] NRBC% auto 0.0 % 08/04/2024 6:39 AM [facility] NRBC Absolute <0.01 <0.01 x10(3)/mc L 08/04/2024 6:39 AM [facility] Neutrophil % 72.1 % 08/04/2024 6:39 AM [facility] Neutrophil Absolute (ANC) - Automated 5.24 1.70 - 6.10 x10(3)/mc L 08/04/2024 6:39 AM [facility] Lymph % 16.8 % 08/04/2024 6:39 AM [facility] Lymph Absolute 1.22 0.90 - 3.20 x10(3)/mc L 08/04/2024 6:39 AM [facility] Monocyte % 8.5 % 08/04/2024 6:39 AM [facility] Monocyte Absolute 0.62 0.30 - 0.90 x10(3)/mc L 08/04/2024 6:39 AM [facility] Eos % 1.9 % 08/04/2024 6:39 AM [facility] Eos Absolute 0.14 0.00 - 0.40 x10(3)/mc L 08/04/2024 6:39 AM [facility] Basophil % 0.4 % 08/04/2024 6:39 AM [facility] Baso Absolute <0.04 0.00 - 0.10 x10(3)/mc L 08/04/2024 6:39 AM [facility] Immature Gran % 0.3 % 6:39 AM [facility] Immature Gran Absolute <0.04 0.00 - 0.04 x10(3)/mc L 08/04/2024 6:39 AM EST [facility] Blood VENOUS BLOOD SPECIMEN / Unknown Venipuncture / Unknown 08/04/2024 6:08 AM EST 08/04/2024 6:19 AM EST Bridgette Stauffer MD HEMATOLOGY ORDERABLE S Performing Organization Address City/[facility]/ZIP Co de Phone Number [facility] [place] [address] * Magnesium (08/04/2024 6:08 AM EST) Magnesium 0.85 0.69 - 1.07 mMol/L 08/04/2024 7:07 AM [facility] Blood VENOUS BLOOD SPECIMEN / Unknown Venipuncture / Unknown 08/04/2024 6:08 AM EST 08/04/2024 6:19 AM EST Bridgette Stauffer MD CHEMISTRY ORDERABLES Performing Organization Address City/[facility]/ZIP Co de Phone Number [facility] [place] [address] * Basic Metabolic Panel (08/04/2024 6:08 AM EST) Glucose 93 65 - 199 mg/dL 08/04/2024 7:07 AM [facility] Comment:Glucose Concentratio n >=200 mg/dL plus symptoms is consistent with Diabetes Mellitus. Blood Urea Nitrogen 14 10 - 20 mg/dL 08/04/2024 7:07 AM [facility] Creatinine 1.07 0.80 - 1.50 mg/dL 08/04/2024 7:07 AM [facility] Sodium 138 135 - 145 mMol/L 08/04/2024 7:07 AM [facility] Potassium 4.3 3.5 - 5.0 mMol/L 08/04/2024 7:07 AM [facility] Chloride 107 98 - 107 mMol/L 08/04/2024 7:07 AM [facility] Carbon Dioxide 23 22 [...] MD CHEMISTRY ORDERABLES [facility] [place] [address] * (ABNORMAL) CBC (with Diff) (08/03/2024 5:16 [...] 40.5 - 48.5 % 08/03/2024 5:29 AM [facility] Mean Cell Volume 81.0(L) 82.9 - 93.1 fL 08/03/2024 5:29 AM [facility] Mean Cell Hemoglobin 26.6(L) 27.5 - 32.1 pg 08/03/2024 5:29 AM [facility] Mean Cell Hemoglobin Concentration 32.9 32.0 - 35.7 g/dL 08/03/2024 5:29 AM [facility] Platelet 142(L) 145 - 357 x10(3)/mc L 08/03/2024 5:29 AM [facility] Mean Platelet Volume 10.5 7.6 - 12.9 fL 08/03/2024 5:29 AM [facility] RDW Standard Deviation 42.5 36.0 - 45.0 fL 08/03/2024 5:29 AM [facility] RDW coefficient of variation 14.2(H) 11.4 - 13.8 % 08/03/2024 5:29 AM [facility] NRBC% auto 0.0 % 08/03/2024 5:29 AM [facility] NRBC Absolute <0.01 <0.01 x10(3)/mc L 08/03/2024 5:29 AM [facility] Neutrophil % 75.2 % 08/03/2024 5:29 AM [facility] Neutrophil Absolute (ANC) - Automated 5.91 1.70 - 6.10 x10(3)/mc L 08/03/2024 5:29 AM [facility] Lymph % 13.4 % 08/03/2024 5:29 AM [facility] Lymph Absolute 1.05 0.90 - 3.20 x10(3)/mc L 08/03/2024 5:29 AM [facility] Monocyte % 9.0 % 08/03/2024 5:29 AM [facility] Monocyte Absolute 0.71 0.30 - 0.90 x10(3)/mc L 08/03/2024 5:29 AM [facility] Eos % 1.7 % 08/03/2024 5:29 AM [facility] Eos Absolute 0.13 0.00 - 0.40 x10(3)/mc L 08/03/2024 5:29 AM [facility] Basophil % 0.4 % 08/03/2024 5:29 AM [facility] Baso Absolute <0.04 0.00 - 0.10 x10(3)/mc L 08/03/2024 5:29 AM [facility] Immature Gran % 0.3 % 5:29 AM [facility] Immature Gran Absolute <0.04 0.00 - 0.04 x10(3)/mc L 08/03/2024 5:29 AM [facility] Blood VENOUS BLOOD SPECIMEN / Unknown Venipuncture / Unknown 08/03/2024 5:16 AM EST 08/03/2024 5:23 AM EST Bridgette Stauffer MD HEMATOLOGY ORDERABLE S [facility] [place] [address] * Magnesium (08/03/2024 5:16 AM EST) Magnesium 0.89 0.69 - 1.07 mMol/L 08/03/2024 5:56 AM [facility] Blood VENOUS BLOOD SPECIMEN / Unknown Venipuncture / Unknown 08/03/2024 5:16 AM EST 08/03/2024 5:23 AM EST Bridgette Stauffer MD CHEMISTRY ORDERABLES [facility] [place] [address] * (ABNORMAL) Basic Metabolic Panel (08/03/2024 5:16 AM EST) Glucose 98 65 - 199 mg/dL 08/03/2024 5:56 AM [facility] Comment:Glucose Concentratio n >=200 mg/dL plus symptoms is consistent with Diabetes Mellitus. Blood Urea Nitrogen 16 10 - 20 mg/dL 08/03/2024 5:56 AM [facility] Creatinine 0.85 0.80 - 1.50 mg/dL 08/03/2024 5:56 AM [facility] Sodium 137 135 - 145 mMol/L 08/03/2024 5:56 AM [facility] Potassium 4.5 3.5 - 5.0 mMol/L 08/03/2024 5:56 AM [facility] Chloride 106 98 - 107 mMol/L 08/03/2024 5:56 AM [facility] Carbon Dioxide 21(L) 22 - 31 mMol/L 08/03/2024 5:56 AM [facility] Anion Gap 10 5 - 15 mMol/L 08/03/2024 5:56 AM [facility] Calcium 8.3(L) 8.5 - 10.5 mg/dL 08/03/2024 5:56 AM [facility] Est Glomerular Filtration Rate - Male 92 mL/min/1. 73 m?? 08/03/2024 5:56 AM [facility] Comment: This patient's estimated [...] MD CHEMISTRY ORDERABLES Performing Organization Address [facility]/ZIP Co de Phone Number [facility] [place] [address] * POC, GLUCOSE (08/02/2024 7:47 AM EST) [facility] Glucometer, POC 89 65 - 199 mg/dL 08/02/2024 7:47 AM EST [facility] Comment:Supplemental ranges: <140 mg/dL before meals <180 mg/dL all other times of the day. Blood CAPILLARY BLOOD / Unknown 08/02/2024 7:47 AM EST 08/02/2024 7:47 AM EST Krystal Parker MD POINT OF CARE TEST O RDERABLES Performing Organization Address [facility] Co de Phone Number [facility] [place] [address] * (ABNORMAL) CBC (with Diff) (08/02/2024 4:20 AM EST) [facility] White Blood Cell 8.51 4.00 - 9.50 x10(3)/mc L 08/02/2024 4:50 AM [facility] Red Blood Cell 4.41(L) 4.58 - 5.54 x10(6)/mc L 08/02/2024 4:50 AM [facility] Hemoglobin 12.2(L) 13.7 - 16.5 g/dL 08/02/2024 4:50 AM [facility] Hematocrit 35.8(L) 40.5 - 48.5 % 08/02/2024 4:50 AM [facility] Mean Cell Volume 81.2(L) 82.9 - 93.1 fL 08/02/2024 4:50 AM [facility] Mean Cell Hemoglobin 27.7 27.5 - 32.1 pg 08/02/2024 4:50 AM [facility] Mean Cell Hemoglobin Concentration 34.1 32.0 - 35.7 g/dL 08/02/2024 4:50 AM [facility] Platelet 111(L) 145 - 357 x10(3)/mc L 08/02/2024 4:50 AM [facility] Mean Platelet Volume 11.1 7.6 - 12.9 fL 08/02/2024 4:50 AM [facility] RDW Standard Deviation 41.9 36.0 - 45.0 fL 08/02/2024 4:50 AM [facility] RDW coefficient of variation 14.1(H) 11.4 - 13.8 % 08/02/2024 4:50 AM [facility] NRBC% auto 0.0 % 08/02/2024 4:50 AM [facility] NRBC Absolute <0.01 <0.01 x10(3)/mc L 08/02/2024 4:50 AM [facility] Neutrophil % 77.7 % 08/02/2024 4:50 AM [facility] Neutrophil Absolute (ANC) - Automated 6.62(H) 1.70 - 6.10 x10(3)/mc L 08/02/2024 4:50 AM [facility] Lymph % 11.9 % 08/02/2024 4:50 AM [facility] Lymph Absolute 1.01 0.90 - 3.20 x10(3)/mc L 08/02/2024 4:50 AM [facility] Monocyte % 8.2 % 08/02/2024 4:50 AM [facility] Monocyte Absolute 0.70 0.30 - 0.90 x10(3)/mc L 08/02/2024 4:50 AM [facility] Eos % 1.4 % 08/02/2024 4:50 AM [facility] Eos Absolute 0.12 0.00 - 0.40 x10(3)/mc L 08/02/2024 4:50 AM EST [facility] Basophil % 0.4 % 08/02/2024 4:50 AM [facility] Baso Absolute <0.04 0.00 - 0.10 x10(3)/mc L 08/02/2024 4:50 AM [facility] Immature Gran % 0.4 % 4:50 AM [facility] Immature Gran Absolute <0.04 0.00 - 0.04 x10(3)/mc L 08/02/2024 4:50 AM [facility] Blood VENOUS BLOOD SPECIMEN / Unknown Venipuncture / Unknown 08/02/2024 4:20 AM EST 08/02/2024 4:37 AM EST Bridgette Stauffer MD HEMATOLOGY ORDERABLE S Performing Organization Address City/[facility]/ZIP Co de Phone Number [facility] [place] [address] * Magnesium (08/02/2024 4:20 AM EST) Magnesium 0.79 0.69 - 1.07 mMol/L 08/02/2024 5:06 AM [facility] Blood VENOUS BLOOD SPECIMEN / Unknown Venipuncture / Unknown 08/02/2024 4:20 AM EST 08/02/2024 4:37 AM EST Bridgette Stuaffer MD CHEMISTRY ORDERABLES [facility] [place] [address] * (ABNORMAL) Basic Metabolic Panel (08/02/2024 4:20 AM EST) Glucose 110 65 - 199 mg/dL 08/02/2024 5:06 AM [facility] Comment:Glucose Concentratio n >=200 mg/dL plus symptoms is consistent with Diabetes Mellitus. Blood Urea Nitrogen 12 10 - 20 mg/dL 08/02/2024 5:06 AM [facility] Creatinine 0.90 0.80 - 1.50 mg/dL 08/02/2024 5:06 AM [facility] Sodium 139 135 - 145 mMol/L 08/02/2024 5:06 AM [facility] Potassium 4.0 3.5 - 5.0 mMol/L 08/02/2024 5:06 AM [facility] Chloride 108(H) 98 - 107 mMol/L 08/02/2024 5:06 AM [facility] Carbon Dioxide 23 22 - 31 mMol/L 08/02/2024 5:06 AM [facility] Anion Gap 8 5 - 15 mMol/L 08/02/2024 5:06 AM [facility] Calcium 8.1(L) 8.5 - 10.5 mg/dL 08/02/2024 5:06 AM [facility] Est Glomerular Filtration Rate - Male 91 mL/min/1. 73 m?? 08/02/2024 5:06 AM [facility] Comment: This patient's estimated [...] MD CHEMISTRY ORDERABLES [facility] [place] [address] * Potassium (08/01/2024 8:39 PM EST) Potassium 4.0 3.5 - 5.0 mMol/L 08/01/2024 9:21 PM EST [facility] Blood VENOUS BLOOD SPECIMEN / Unknown Venipuncture / Unknown 08/01/2024 8:39 PM EST 08/01/2024 8:51 PM EST Aubree Silverio MD CHEMISTRY ORDERABL ES Performing Organization Address City/[facility]/ZIP Co de Phone Number [facility] [place] [address] * POC, GLUCOSE (08/01/2024 8:35 PM EST) Glucometer, POC 112 65 - 199 mg/dL 08/01/2024 8:36 PM EST [facility] Comment:Supplemental ranges: <140 mg/dL before meals <180 mg/dL all other times of the day. Blood CAPILLARY BLOOD / Unknown 08/01/2024 8:35 PM EST 08/01/2024 8:36 PM EST Krystal Parker MD POINT OF CARE TEST O RDKAY Performing Organization Address [facility] Co de Phone Number [facility] [place] [address] * POC, GLUCOSE (08/01/2024 4:55 PM EST) Glucometer, POC 99 65 - 199 mg/dL 08/01/2024 4:56 PM EST [facility] Comment:Supplemental ranges: <140 mg/dL before meals <180 mg/dL all other times of the day. Blood CAPILLARY BLOOD / Unknown 08/01/2024 4:55 PM EST 08/01/2024 4:56 PM EST Krystal Parker MD POINT OF CARE TEST O RDKAY Performing Organization Address City/[facility]/ZIP Co de Phone Number [facility] [place] [address] * POC, GLUCOSE (08/01/2024 12:42 PM EST) Glucometer, POC 130 65 - 199 mg/dL 08/01/2024 12:43 PM EST [facility] Comment:Supplemental ranges: <140 mg/dL before meals <180 mg/dL all other times of the day. Blood CAPILLARY BLOOD / Unknown 08/01/2024 12:42 PM EST 08/01/2024 12:43 PM EST Krystal Parker MD POINT OF CARE TEST O RDERASHAY [facility] [place] [address] * (ABNORMAL) Cooximetry, POC (08/01/2024 10:45 AM EST) Pathologist [facility] pO2, Coox 32 mmHg 08/01/2024 10:48 AM [facility] Hemoglobin, Coox 12.9(L) 13.7 - 16.5 g/dL 08/01/2024 10:48 AM [facility] Oxyhemoglobin, Coox 66.7 % 08/01/2024 10:48 AM [facility] Carboxyhemoglo bin, Coox 1.1 % 08/01/2024 10:48 AM [facility] Comment: Nonsmokers: 0.5-1.5% COHB ?? Smokers: Variable ??but usually less than 10% ?? Toxic: 20-30% COHB ?? Lethal: Greater than 60% COHB Methemoglobin, Coox 0.3 <=1.5 % 08/01/2024 10:48 AM [facility] Blood (Mixed Venous) 08/01/2024 10:45 AM EST 08/01/2024 10:48 AM EST Krystal Parker MD POINT OF CARE TEST O RDERABLES Performing Organization Address City/[facility]/ZIP Co de Phone Number [facility] [place] [address] * Potassium (08/01/2024 8:20 AM EST) Pathologist [facility] Potassium 4.0 3.5 - 5.0 mMol/L 08/01/2024 10:17 AM EST [facility] Blood ARTERIAL BLOOD / Unknown Venipuncture / Unknown 08/01/2024 8:20 AM EST 08/01/2024 8:30 AM EST Aubree Silverio MD CHEMISTRY ORDERABL ES Performing Organization Address City/[facility]/ZIP Co de Phone Number [facility] [place] [address] * POC, GLUCOSE (08/01/2024 7:44 AM EST) [facility] Glucometer, POC 86 65 - 199 mg/dL 08/01/2024 7:44 AM EST [facility] Comment:Supplemental ranges: <140 mg/dL before meals <180 mg/dL all other times of the day. Blood CAPILLARY BLOOD / Unknown 08/01/2024 7:44 AM EST 08/01/2024 7:44 AM EST Krystal Parker MD POINT OF CARE TEST O RDERABLES Performing Organization Address City/[facility]/ZIP Co de Phone Number [facility] [place] [address] * (ABNORMAL) CBC (with Diff) (08/01/2024 4:18 AM EST) [facility] White Blood Cell 8.51 4.00 - 9.50 x10(3)/mc L 08/01/2024 4:53 AM EST [facility] Red Blood Cell 4.12(L) 4.58 - 5.54 x10(6)/mc L 08/01/2024 4:53 AM EST [facility] Hemoglobin 11.2(L) 13.7 - 16.5 g/dL 08/01/2024 4:53 AM EST [facility] Hematocrit 33.8(L) 40.5 - 48.5 % 08/01/2024 4:53 AM [facility] Mean Cell Volume 82.0(L) 82.9 - 93.1 fL 08/01/2024 4:53 AM [facility] Mean Cell Hemoglobin 27.2(L) 27.5 - 32.1 pg 08/01/2024 4:53 AM [facility] Mean Cell Hemoglobin Concentration 33.1 32.0 - 35.7 g/dL 08/01/2024 4:53 AM [facility] Platelet 94(L) 145 - 357 x10(3)/mc L 08/01/2024 4:53 AM [facility] Mean Platelet Volume 10.9 7.6 - 12.9 fL 08/01/2024 4:53 AM [facility] RDW Standard Deviation 44.2 36.0 - 45.0 fL 08/01/2024 4:53 AM [facility] RDW coefficient of variation 14.7(H) 11.4 - 13.8 % 08/01/2024 4:53 AM [facility] NRBC% auto 0.0 % 08/01/2024 4:53 AM [facility] NRBC Absolute <0.01 <0.01 x10(3)/mc L 08/01/2024 4:53 AM [facility] Neutrophil % 82.7 % 08/01/2024 4:53 AM [facility] Neutrophil Absolute (ANC) - Automated 7.04(H) 1.70 - 6.10 x10(3)/mc L 08/01/2024 4:53 AM [facility] Lymph % 8.6 % 08/01/2024 4:53 AM [facility] Lymph Absolute 0.73(L) 0.90 - 3.20 x10(3)/mc L 08/01/2024 4:53 AM [facility] Monocyte % 7.6 % 08/01/2024 4:53 AM [facility] Monocyte Absolute 0.65 0.30 - 0.90 x10(3)/mc L 08/01/2024 4:53 AM [facility] Eos % 0.5 % 08/01/2024 4:53 AM [facility] Eos Absolute 0.04 0.00 - 0.40 x10(3)/mc L 08/01/2024 4:53 AM [facility] Basophil % 0.2 % 08/01/2024 4:53 AM [facility] Baso Absolute <0.04 0.00 - 0.10 x10(3)/mc L 08/01/2024 4:53 AM [facility] Immature Gran % 0.4 % 4:53 AM [facility] Immature Gran Absolute <0.04 0.00 - 0.04 x10(3)/mc L 08/01/2024 4:53 AM [facility] Blood VENOUS BLOOD SPECIMEN / Unknown Venipuncture / Unknown 08/01/2024 4:18 AM EST 08/01/2024 4:29 AM EST Bridgette Stauffer MD HEMATOLOGY ORDERABLE S [facility] [place] [address] * Magnesium (08/01/2024 4:18 AM EST) Magnesium 0.74 0.69 - 1.07 mMol/L 08/01/2024 5:00 AM [facility] Blood VENOUS BLOOD SPECIMEN / Unknown Venipuncture / Unknown 08/01/2024 4:18 AM EST 08/01/2024 4:29 AM EST Bridgette Stauffer MD CHEMISTRY ORDERABLES [facility] [place] [address] * (ABNORMAL) Basic Metabolic Panel (08/01/2024 4:18 AM EST) Glucose 107 65 - 199 mg/dL 08/01/2024 5:00 AM [facility] Comment:Glucose Concentratio n >=200 mg/dL plus symptoms is consistent with Diabetes Mellitus. Blood Urea Nitrogen 8(L) 10 - 20 mg/dL 08/01/2024 5:00 AM [facility] Creatinine 0.82 0.80 - 1.50 mg/dL 08/01/2024 5:00 AM [facility] Sodium 137 135 - 145 mMol/L 08/01/2024 5:00 AM [facility] Potassium 3.9 3.5 - 5.0 mMol/L 08/01/2024 5:00 AM [facility] Chloride 108(H) 98 - 107 mMol/L 08/01/2024 5:00 AM [facility] Carbon Dioxide 21(L) 22 - 31 mMol/L 08/01/2024 5:00 AM [facility] Anion Gap 8 5 - 15 mMol/L 08/01/2024 5:00 AM [facility] Calcium 7.7(L) 8.5 - 10.5 mg/dL 08/01/2024 5:00 AM [facility] Est Glomerular Filtration Rate - Male 93 mL/min/1. 73 m?? 08/01/2024 5:00 AM [facility] Comment: This patient's estimated [...] MD CHEMISTRY ORDERABLES Performing Organization Address [facility] de Phone Number [facility] [place] [address] * POC, GLUCOSE (07/31/2024 8:41 PM EST) [facility] Signature Glucometer, POC 73 65 - 199 mg/dL 07/31/2024 8:41 PM EST [facility] Comment:Supplemental ranges: <140 mg/dL before meals <180 mg/dL all other times of the day. Blood CAPILLARY BLOOD / Unknown 07/31/2024 8:41 PM EST 07/31/2024 8:41 PM EST Krystal Parker MD POINT OF CARE TEST O RDERABLES Performing Organization Address [facility] de Phone Number [facility] [place] [address] * CARDIAC CATHETERIZATION (07/31/2024 5:53 PM EST) Anatomical Region Laterality Modality Other Narrative 08/01/2024 12:37 PM EST ?[facility] ? Cardiac Catheterization/Intervention Report ? Patient Name: Korey MontoyaToby ? Procedure Date: 07/31/2024 ? A #: [id number] ? Primary Physician: Maldonado Luis ? Case #: [id number] ? File Name: [id number] ? Catheterization Order Number: [id number] ? [facility] ? Final Report [place], [place] ? Patient Name: ? Korey P. Montoya ?ID#: ?[id number] ? : ?1950 ? Procedure Date: ? [...] ? Comments: ?Impella removed from the right DISABILITY HEARING OFFICER with deployment of Perclose and ?Angioseal. ??Good [...] Procedure Note Maldonado Luis MD - 08/01/2024 [facility] Cardiac Catheterization/Intervention Report Patient Name: Korey MontoyaToby Procedure Date: 07/31/2024 A #: [id number] Primary Physician: Maldonado Luis Case #: [id number] File Name: [id number] Catheterization Order Number: [id number] [facility] FinalReport [place], [place] Patient Name: Korey Montoya ID#:[id number] :1950 Procedure Date: July 31, 2024 Case [...] was designated as ASA Class IV. The [facility] clinical frailtyscale is 4: Vulnerable. Diagnostic [...] procedures. Comments: Impella removed from the right DISABILITY HEARING OFFICER with deployment of Perclose and Angioseal. Good [...] CARE TEST O RDERABLES Performing Organization Address City/State/[facility] Co de Phone Number [facility] [place] [address] * (ABNORMAL) Blood Gas, Arterial POC (07/31/2024 8:29 AM EST) pH, Arterial 7.48(H) 7.35 - 7.45 07/31/2024 8:30 AM [facility] PCO2, Arterial 29(L) 35 - 45 mmHg 07/31/2024 8:30 AM [facility] PO2, Arterial 71(L) 85 - 104 mmHg 07/31/2024 8:30 AM [facility] Bicarbonate, Arterial 20.6 20.0 - 26.0 mmol/L 07/31/2024 8:30 AM [facility] Base Excess, Arterial -3.0 -3.0 - 3.0 mmol/L 07/31/2024 8:30 AM [facility] Hemoglobin, Arterial 12.3(L) 13.7 - 16.5 g/dL 07/31/2024 8:30 AM [facility] Oxyhemoglobin, Arterial 94.4 94.0 - 97.0 % 07/31/2024 8:30 AM [facility] Carboxyhemoglobin , Arterial 0.7 % 07/31/2024 8:30 AM [facility] Comment: Nonsmokers: 0.5-1.5% COHB ?? Smokers: Variable ??but usually less than 10% ?? Toxic: 20-30% COHB ?? Lethal: Greater than 60% COHB Methemoglobin, Arterial 0.3 <=1.5 % 07/31/2024 8:30 AM [facility] Sodium, Arterial 138 135 - 145 mmol/L 07/31/2024 8:30 AM [facility] Potassium, Arterial 3.5 3.5 - 5.0 mmol/L 07/31/2024 8:30 AM [facility] Chloride, Arterial 109(H) 98 - 107 mmol/L 07/31/2024 8:30 AM [facility] Lactate, Arterial 0.8 0.5 - 2.2 mmol/L 07/31/2024 8:30 AM [facility] Fraction of Inspired Oxygen 21 % 07/31/2024 8:30 AM [facility] PF Ratio 338 Ratio 07/31/2024 8:30 AM [facility] Comment:PF ratio calculated using the non-temperature corrected pO2 result. IONIZED CALCIUM, ARTERIAL 1.08(L) 1.15 - 1.33 mmol/L 07/31/2024 8:30 AM [facility] Glucose, Arterial 86 65 - 199 mg/dL 07/31/2024 8:30 AM EST [facility] Comment:Glucose Concentratio n >=200 mg/dL plus symptoms is consistent with Diabetes Mellitus. Blood ARTERIAL BLOOD / Unknown 07/31/2024 8:29 AM EST 07/31/2024 8:30 AM EST Krystal Parker MD POINT OF CARE TEST O RDERABLES [facility] [place] [address] * POC, GLUCOSE (07/31/2024 7:47 AM EST) Glucometer, POC 82 65 - 199 mg/dL 07/31/2024 7:53 AM EST [facility] Comment:Supplemental ranges: <140 mg/dL before meals <180 mg/dL all other times of the day. Blood CAPILLARY BLOOD / Unknown 07/31/2024 7:47 AM EST 07/31/2024 7:53 AM EST Krystal Parker MD POINT OF CARE TEST O RDERABLES [facility] [place] [address] * (ABNORMAL) CBC (with Diff) (07/31/2024 1:08 AM EST) [facility] White Blood Cell 10.25(H) 4.00 - 9.50 x10(3)/mc L 07/31/2024 1:28 AM [facility] Red Blood Cell 4.13(L) 4.58 - 5.54 x10(6)/mc L 07/31/2024 1:28 AM [facility] Hemoglobin 11.2(L) 13.7 - 16.5 g/dL 07/31/2024 1:28 AM [facility] Hematocrit 33.9(L) 40.5 - 48.5 % 07/31/2024 1:28 AM [facility] Mean Cell Volume 82.1(L) 82.9 - 93.1 fL 07/31/2024 1:28 AM [facility] Mean Cell Hemoglobin 27.1(L) 27.5 - 32.1 pg 07/31/2024 1:28 AM [facility] Mean Cell Hemoglobin Concentration 33.0 32.0 - 35.7 g/dL 07/31/2024 1:28 AM [facility] Platelet 109(L) 145 - 357 x10(3)/mc L 07/31/2024 1:28 AM [facility] Mean Platelet Volume 10.4 7.6 - 12.9 fL 07/31/2024 1:28 AM [facility] RDW Standard Deviation 45.1(H) 36.0 - 45.0 fL 07/31/2024 1:28 AM [facility] RDW coefficient of variation 15.1(H) 11.4 - 13.8 % 07/31/2024 1:28 AM [facility] NRBC% auto 0.0 % 07/31/2024 1:28 AM [facility] NRBC Absolute <0.01 <0.01 x10(3)/mc L 07/31/2024 1:28 AM [facility] Neutrophil % 79.7 % 07/31/2024 1:28 AM [facility] Neutrophil Absolute (ANC) - Automated 8.17(H) 1.70 - 6.10 x10(3)/mc L 07/31/2024 1:28 AM [facility] Lymph % 12.8 % 07/31/2024 1:28 AM [facility] Lymph Absolute 1.31 0.90 - 3.20 x10(3)/mc L 07/31/2024 1:28 AM [facility] Monocyte % 6.9 % 07/31/2024 1:28 AM [facility] Monocyte Absolute 0.71 0.30 - 0.90 x10(3)/mc L 07/31/2024 1:28 AM [facility] Eos % 0.1 % 07/31/2024 1:28 AM [facility] Eos Absolute <0.04 0.00 - 0.40 x10(3)/mc L 07/31/2024 1:28 AM [facility] Basophil % 0.3 % 07/31/2024 1:28 AM [facility] Baso Absolute <0.04 0.00 - 0.10 x10(3)/mc L 07/31/2024 1:28 AM [facility] Immature Gran % 0.2 % 1:28 AM EST [facility] Immature Gran Absolute <0.04 0.00 - 0.04 x10(3)/mc L 07/31/2024 1:28 AM [facility] Blood VENOUS BLOOD SPECIMEN / Unknown Venipuncture / Unknown 07/31/2024 1:08 AM EST 07/31/2024 1:18 AM EST Bridgette Stauffer MD HEMATOLOGY ORDERABLE S Performing Organization Address [facility] Co de Phone Number [facility] [place] [address] * Magnesium (07/31/2024 1:08 AM EST) Pathologist [facility] Magnesium 0.89 0.69 - 1.07 mMol/L 07/31/2024 1:46 AM [facility] Blood VENOUS BLOOD SPECIMEN / Unknown Venipuncture / Unknown 07/31/2024 1:08 AM EST 07/31/2024 1:18 AM EST Bridgette Stauffer MD CHEMISTRY ORDERABLES Performing Organization Address City/[facility] Co de Phone Number [facility] [place] [address] * (ABNORMAL) Basic Metabolic Panel (07/31/2024 1:08 AM EST) Pathologist [facility] Glucose 97 65 - 199 mg/dL 07/31/2024 1:46 AM [facility] Comment:Glucose Concentratio n >=200 mg/dL plus symptoms is consistent with Diabetes Mellitus. Blood Urea Nitrogen 11 10 - 20 mg/dL 07/31/2024 1:46 AM [facility] Creatinine 0.96 0.80 - 1.50 mg/dL 07/31/2024 1:46 AM [facility] Sodium 140 135 - 145 mMol/L 07/31/2024 1:46 AM [facility] Potassium 4.1 3.5 - 5.0 mMol/L 07/31/2024 1:46 AM EST [facility] Chloride 110(H) 98 - 107 mMol/L 07/31/2024 1:46 AM EST [facility] Carbon Dioxide 24 22 - 31 mMol/L 07/31/2024 1:46 AM [facility] Anion Gap 6 5 - 15 mMol/L 07/31/2024 1:46 AM [facility] Calcium 7.7(L) 8.5 - 10.5 mg/dL 07/31/2024 1:46 AM [facility] Est Glomerular Filtration Rate - Male 84 mL/min/1. 73 m?? 07/31/2024 1:46 AM [facility] Comment: This patient's estimated [...] MD CHEMISTRY ORDERABLES [facility] [place] [address] * (ABNORMAL) Hepatic Function Panel (07/31/2024 1:08 AM EST) Albumin 3.1(L) 3.2 - 5.2 g/dL 07/31/2024 1:46 AM EST [facility] Aspartate Aminotransferase 192(H) <=39 unit/L 07/31/2024 1:46 AM EST [facility] Alanine Aminotransferase 59(H) 0 - 55 unit/L 07/31/2024 1:46 AM EST [facility] Alkaline Phosphatase 46 40 - 130 unit/L 07/31/2024 1:46 AM [facility] Bilirubin, Total 0.4 <=1.3 mg/dL 07/31/2024 1:46 AM [facility] Bilirubin, Direct <0.2 0.0 - 0.3 mg/dL 07/31/2024 1:46 AM [facility] Protein, Total 5.0(L) 6.1 - 8.0 g/dL 07/31/2024 1:46 AM [facility] Blood VENOUS BLOOD SPECIMEN / Unknown Venipuncture / Unknown 07/31/2024 1:08 AM EST 07/31/2024 1:18 AM EST Krystal Parker MD CHEMISTRY ORDERABLES Performing Organization Address City/[facility] Co de Phone Number [facility] [place] [address] * POC, GLUCOSE (07/30/2024 8:03 PM EST) Glucometer, POC 86 65 - 199 mg/dL 07/30/2024 8:03 PM EST [facility] Comment:Supplemental ranges: <140 mg/dL before meals <180 mg/dL all other times of the day. Blood CAPILLARY BLOOD / Unknown 07/30/2024 8:03 PM EST 07/30/2024 8:03 PM EST Krystal Parker MD POINT OF CARE TEST O RDERABLES Performing Organization Address City/[facility]/ZIP Co de Phone Number [facility] [place] [address] * Potassium (07/30/2024 8:03 PM EST) Potassium 3.8 3.5 - 5.0 mMol/L 07/30/2024 9:13 PM EST [facility] Blood VENOUS BLOOD SPECIMEN / Unknown Venipuncture / Unknown 07/30/2024 8:03 PM EST 07/30/2024 8:22 PM EST Aubree Silverio MD CHEMISTRY ORDERABL ES Performing Organization Address [facility]/ZIP Co de Phone Number [facility] [place] [address] * POC, GLUCOSE (07/30/2024 6:23 PM EST) Glucometer, POC 93 65 - 199 mg/dL 07/30/2024 6:24 PM EST [facility] Comment:Supplemental ranges: <140 mg/dL before meals <180 mg/dL all other times of the day. Blood CAPILLARY BLOOD / Unknown 07/30/2024 6:23 PM EST 07/30/2024 6:24 PM EST Krystal Parker MD POINT OF CARE TEST O JOSH Performing Organization Address [facility] Co de Phone Number [facility] [place] [address] * POC, GLUCOSE (07/30/2024 5:08 PM EST) Glucometer, POC 78 65 - 199 mg/dL 07/30/2024 5:08 PM EST [facility] Comment:Supplemental ranges: <140 mg/dL before meals <180 mg/dL all other times of the day. Blood CAPILLARY BLOOD / Unknown 07/30/2024 5:08 PM EST 07/30/2024 5:08 PM EST Krystal Parker MD POINT OF CARE TEST O JOSH Performing Organization Address [facility] Co de Phone Number [facility] [place] [address] * (ABNORMAL) Phosphorus (07/30/2024 3:08 PM EST) Phosphorus 2.1(L) 2.5 - 4.5 mg/dL 07/30/2024 3:58 PM EST [facility] Blood VENOUS BLOOD SPECIMEN / Unknown Venipuncture / Unknown 07/30/2024 3:08 PM EST 07/30/2024 3:12 PM EST Aubree Silverio MD CHEMISTRY ORDERABL ES Performing Organization Address [facility]/ZIP Co de Phone Number [facility] [place] [address] * Magnesium (07/30/2024 3:08 PM EST) Magnesium 0.90 0.69 - 1.07 mMol/L 07/30/2024 3:58 PM EST [facility] Blood VENOUS BLOOD SPECIMEN / Unknown Venipuncture / Unknown 07/30/2024 3:08 PM EST 07/30/2024 3:12 PM EST Aubree Silverio MD CHEMISTRY ORDERABL ES Performing Organization Address City/[facility]/ZIP Co de Phone Number [facility] [place] [address] * (ABNORMAL) Basic Metabolic Panel (07/30/2024 3:08 PM EST) Glucose 105 65 - 199 mg/dL 07/30/2024 4:17 PM [facility] Comment:Glucose Concentratio n >=200 mg/dL plus symptoms is consistent with Diabetes Mellitus. Blood Urea Nitrogen 13 10 - 20 mg/dL 07/30/2024 4:17 PM EST [facility] Creatinine 1.01 0.80 - 1.50 mg/dL 07/30/2024 4:17 PM [facility] Sodium 141 135 - 145 mMol/L 07/30/2024 4:17 PM [facility] Potassium 3.4(L) 3.5 - 5.0 mMol/L 07/30/2024 4:17 PM [facility] Chloride 109(H) 98 - 107 mMol/L 07/30/2024 4:17 PM [facility] Carbon Dioxide 21(L) 22 [...] ORDERABL ES [facility] [place] [address] * ECHO LMTD W CONTRAST W LMTD SPEC DOPP COLOR DOPP (07/30/2024 11:42 AM EST) Anatomical Region Laterality Modality Cardiac Other 07/30/2024 10:2 2 AM EST Narrative 07/30/2024 12:34 PM EST [address] [place] [address] ? Echocardiogram Report Name: KOREY MONTOYA ? Study Date: 07/30/2024 10:22 AMBP: 124/66 mmHg : 1950 ? Height: 168 cm ? Account: [id number] Age: 74 yrs ? Weight: 65 kg Gender: Male ?BSA: 1.7 m2 Ordering Physician: Aubree Silverio MD Referring Physician: CHAPARRO FERRERA Performed By: OMERO Millan Reason For Study: ST elevation myocardial infarction involving left anterior descending (LAD) coronary artery Interpreting Fellow: Ivan Hernandez. Exam Location: [facility]. Interpretation Summary Left ventricle is severely [...] Compared to the overnight study by the design sales consultant fellow the impella position is stable. 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 Procedure Limited - 54504. Image enhancement Definity was used for both [...] Note Kathleen Banda MD - 07/30/[address] [place] [id number] Echocardiogram Report Name: KOREY MONTOYA Kyrie Study Date: 410:22 AMBP: 124/66 mmHg : 1950 Height: 168 cm Account: [id number] Age: 74 yrs Weight: 65 kg Gender: Male BSA: 1.7 m2 Ordering Physician: Aubree Silverio MD Referring Physician: CHAPARRO FERRERA Performed By: OMERO Millan Reason For Study: ST elevation myocardial infarction involving leftanterior descending (LAD) coronary artery Interpreting Fellow: Ivan Hernandez. Exam Location: [facility]. Interpretation Summary Left ventricle is severely [...] Compared to the overnight study by the design sales consultant fellow the impella positionis stable. The global left ventricular systolic function has improvedpredominantly via recruitment outside the LAD territory which remains akinetic. Procedure Limited - 65579. Image enhancement Definity was used for both [...] 65 - 199 mg/dL 07/30/2024 11:17 AM [facility] Comment:Supplemental ranges: <140 mg/dL before meals <180 mg/dL all other times of the day. Blood CAPILLARY BLOOD / Unknown 07/30/2024 11:17 AM EST 07/30/2024 11:17 AM EST Aubree Silverio MD POINT OF CARE TEST ORDERABLES Performing Organization Address City/State/[facility] Co de Phone Number [facility] [place] [address] * (ABNORMAL) Blood Gas, Arterial POC (07/30/2024 8:16 AM EST) pH, Arterial 7.44 7.35 - 7.45 07/30/2024 8:17 AM [facility] PCO2, Arterial 29(L) 35 - 45 mmHg 07/30/2024 8:17 AM [facility] PO2, Arterial 109(H) 85 - 104 mmHg 07/30/2024 8:17 AM [facility] Bicarbonate, Arterial 19.4(L) 20.0 - 26.0 mmol/L 07/30/2024 8:17 AM [facility] Base Excess, Arterial -4.7(L) -3.0 - 3.0 mmol/L 07/30/2024 8:17 AM [facility] Hemoglobin, Arterial 12.2(L) 13.7 - 16.5 g/dL 07/30/2024 8:17 AM [facility] Oxyhemoglobin, Arterial 97.1(H) 94.0 - 97.0 % 07/30/2024 8:17 AM [facility] Carboxyhemoglob in, Arterial 1.0 % 07/30/2024 8:17 AM [facility] Comment: Nonsmokers: 0.5-1.5% COHB ?? Smokers: Variable ??but usually less than 10% ?? Toxic: 20-30% COHB ?? Lethal: Greater than 60% COHB Methemoglobin, Arterial 0.1 <=1.5 % 07/30/2024 8:17 AM [facility] Sodium, Arterial 132(L) 135 - 145 mmol/L 07/30/2024 8:17 AM [facility] Potassium, Arterial 3.9 3.5 - 5.0 mmol/L 07/30/2024 8:17 AM [facility] Chloride, Arterial 105 98 - 107 mmol/L 07/30/2024 8:17 AM [facility] Lactate, Arterial 1.2 0.5 - 2.2 mmol/L 07/30/2024 8:17 AM [facility] Fraction of Inspired Oxygen 21 % 07/30/2024 8:17 AM [facility] PF Ratio 519 Ratio 07/30/2024 8:17 AM [facility] Comment:PF ratio calculated using the non-temperature corrected pO2 result. IONIZED CALCIUM, ARTERIAL 1.15 1.15 - 1.33 mmol/L 07/30/2024 8:17 AM [facility] Blood ARTERIAL BLOOD / Unknown 07/30/2024 8:16 AM EST 07/30/2024 8:17 AM EST Aubree Silverio MD POINT OF CARE TEST ORDERABLES [facility] [place] [address] * (ABNORMAL) Troponin - Single (07/30/2024 8:09 [...] troponin value can be found in the [facility] Test Catalog Troponin - [email or web address] Reference: Fourth [place] Definition of Myocardial Infarction. Journal of the [place] [employer] 2018;72:6091-3575 Blood VENOUS BLOOD SPECIMEN / Unknown Venipuncture / Unknown 07/30/2024 8:09 AM EST 07/30/2024 8:26 AM EST Aubree Silverio MD CHEMISTRY ORDERABL ES [facility] [place] [address] * POC, GLUCOSE (07/30/2024 7:40 AM EST) Shaheen Jc Glucometer, POC 111 65 - 199 mg/dL 07/30/2024 7:40 AM EST [facility] Comment:Supplemental ranges: <140 mg/dL before meals <180 mg/dL all other times of the day. Blood CAPILLARY BLOOD / Unknown 07/30/2024 7:40 AM EST 07/30/2024 7:40 AM EST Aubree Silverio MD POINT OF CARE TEST ORDERABLES [facility] [place] [address] * (ABNORMAL) CBC (with Diff) (07/30/2024 2:11 AM EST) White Blood Cell 11.25(H) 4.00 - 9.50 x10(3)/mc L 07/30/2024 2:33 AM [facility] Red Blood Cell 4.50(L) 4.58 - 5.54 x10(6)/mc L 07/30/2024 2:33 AM [facility] Hemoglobin 12.2(L) 13.7 - 16.5 g/dL 07/30/2024 2:33 AM [facility] Hematocrit 37.1(L) 40.5 - 48.5 % 07/30/2024 2:33 AM [facility] Mean Cell Volume 82.4(L) 82.9 - 93.1 fL 07/30/2024 2:33 AM [facility] Mean Cell Hemoglobin 27.1(L) 27.5 - 32.1 pg 07/30/2024 2:33 AM [facility] Mean Cell Hemoglobin Concentration 32.9 32.0 - 35.7 g/dL 07/30/2024 2:33 AM [facility] Platelet 166 145 - 357 x10(3)/mc L 07/30/2024 2:33 AM [facility] Mean Platelet Volume 10.6 7.6 - 12.9 fL 07/30/2024 2:33 AM [facility] RDW Standard Deviation 44.6 36.0 - 45.0 fL 07/30/2024 2:33 AM [facility] RDW coefficient of variation 14.6(H) 11.4 - 13.8 % 07/30/2024 2:33 AM [facility] NRBC% auto 0.0 % 07/30/2024 2:33 AM [facility] NRBC Absolute <0.01 <0.01 x10(3)/mc L 07/30/2024 2:33 AM [facility] Neutrophil % 88.9 % 07/30/2024 2:33 AM [facility] Neutrophil Absolute (ANC) - Automated 10.00(H) 1.70 - 6.10 x10(3)/mc L 07/30/2024 2:33 AM [facility] Lymph % 5.1 % 07/30/2024 2:33 AM [facility] Lymph Absolute 0.57(L) 0.90 - 3.20 x10(3)/mc L 07/30/2024 2:33 AM [facility] Monocyte % 5.4 % 07/30/2024 2:33 AM [facility] Monocyte Absolute 0.61 0.30 - 0.90 x10(3)/mc L 07/30/2024 2:33 AM [facility] Eos % 0.0 % 07/30/2024 2:33 AM [facility] Eos Absolute <0.04 0.00 - 0.40 x10(3)/mc L 07/30/2024 2:33 AM [facility] Basophil % 0.2 % 07/30/2024 2:33 AM [facility] Baso Absolute <0.04 0.00 - 0.10 x10(3)/mc L 07/30/2024 2:33 AM [facility] Immature Gran % 0.4 % 2:33 AM [facility] Immature Gran Absolute 0.05(H) 0.00 - 0.04 x10(3)/mc L 07/30/2024 2:33 AM [facility] Blood VENOUS BLOOD SPECIMEN / Unknown Venipuncture / Unknown 07/30/2024 2:11 AM EST 07/30/2024 2:22 AM EST Bridgette Stauffer MD HEMATOLOGY ORDERABLE S [facility] [place] [address] * Magnesium (07/30/2024 2:11 AM EST) Magnesium 1.01 0.69 - 1.07 mMol/L 07/30/2024 2:51 AM [facility] Blood VENOUS BLOOD SPECIMEN / Unknown Venipuncture / Unknown 07/30/2024 2:11 AM EST 07/30/2024 2:22 AM EST Bridgette Stauffer MD CHEMISTRY ORDERABLES Performing Organization Address City/[facility]/ZIP Co de Phone Number [facility] [place] [address] * (ABNORMAL) Basic Metabolic Panel (07/30/2024 2:11 AM EST) Pathologist [facility] Glucose 190 65 - 199 mg/dL 07/30/2024 2:51 AM [facility] Comment:Glucose Concentratio n >=200 mg/dL plus symptoms is consistent with Diabetes Mellitus. Blood Urea Nitrogen 15 10 - 20 mg/dL 07/30/2024 2:51 AM [facility] Creatinine 0.88 0.80 - 1.50 mg/dL 07/30/2024 2:51 AM [facility] Sodium 135 135 - 145 mMol/L 07/30/2024 2:51 AM [facility] Potassium 4.9 3.5 - 5.0 mMol/L 07/30/2024 2:51 AM [facility] Chloride 105 98 - 107 mMol/L 07/30/2024 2:51 AM [facility] Carbon Dioxide 19(L) 22 - 31 mMol/L 07/30/2024 2:51 AM [facility] Anion Gap 11 5 [...] MD CHEMISTRY ORDERABLES [facility] [place] [address] * (ABNORMAL) Cooximetry, POC (07/30/2024 1:00 AM EST) pO2, Coox 28 mmHg 07/30/2024 1:03 AM EST [facility] Hemoglobin, Coox 12.7(L) 13.7 - 16.5 g/dL 07/30/2024 1:03 AM EST [facility] Oxyhemoglobin, Coox 54.9 % 07/30/2024 1:03 AM [facility] Carboxyhemoglo bin, Coox 1.0 % 07/30/2024 1:03 AM [facility] Comment: Nonsmokers: 0.5-1.5% COHB ?? Smokers: Variable ??but usually less than 10% ?? Toxic: 20-30% COHB ?? Lethal: Greater than 60% COHB Methemoglobin, Coox 0.0 <=1.5 % 07/30/2024 1:03 AM [facility] Blood (Mixed Venous) 07/30/2024 1:00 AM EST 07/30/2024 1:03 AM EST Aubree Silverio MD POINT OF CARE TEST ORDERABLES Performing Organization Address City/State/[facility] Co de Phone Number [facility] [place] [address] * (ABNORMAL) Blood Gas, Arterial POC (07/30/2024 12:57 AM EST) pH, Arterial 7.38 7.35 - 7.45 07/30/2024 12:58 AM [facility] PCO2, Arterial 34(L) 35 - 45 mmHg 07/30/2024 12:58 AM [facility] PO2, Arterial 141(H) 85 - 104 mmHg 07/30/2024 12:58 AM [facility] Bicarbonate, Arterial 19.5(L) 20.0 - 26.0 mmol/L 07/30/2024 12:58 AM [facility] Base Excess, Arterial -5.6(L) -3.0 - 3.0 mmol/L 07/30/2024 12:58 AM [facility] Hemoglobin, Arterial 13.0(L) 13.7 - 16.5 g/dL 07/30/2024 12:58 AM [facility] Oxyhemoglobin, Arterial 98.4(H) 94.0 - 97.0 % 07/30/2024 12:58 AM [facility] Carboxyhemoglobin , Arterial 0.4 % 07/30/2024 12:58 AM [facility] Comment: Nonsmokers: 0.5-1.5% COHB ?? Smokers: Variable ??but usually less than 10% ?? Toxic: 20-30% COHB ?? Lethal: Greater than 60% COHB Methemoglobin, Arterial 0.1 <=1.5 % 07/30/2024 12:58 AM [facility] Sodium, Arterial 130(L) 135 - 145 mmol/L 07/30/2024 12:58 AM [facility] Potassium, Arterial 4.5 3.5 - 5.0 mmol/L 07/30/2024 12:58 AM [facility] Chloride, Arterial 104 98 - 107 mmol/L 07/30/2024 12:58 AM [facility] Lactate, Arterial 1.3 0.5 - 2.2 mmol/L 07/30/2024 12:58 AM [facility] Flow Rate 2.0 L/min 07/30/2024 12:58 AM [facility] IONIZED CALCIUM, ARTERIAL 1.12(L) 1.15 - 1.33 mmol/L 07/30/2024 12:58 AM [facility] Glucose, Arterial 184 65 - 199 mg/dL 07/30/2024 12:58 AM [facility] Comment:Glucose Concentratio n >=200 mg/dL plus symptoms is consistent with Diabetes Mellitus. Blood ARTERIAL BLOOD / Unknown 07/30/2024 12:57 AM EST 07/30/2024 12:58 AM EST Aubree Silverio MD POINT OF CARE TEST ORDERABLES [facility] [place] [address] * (ABNORMAL) Troponin - Single (07/29/2024 10:31 PM EST) Troponin-T, High Sensitivity >10,000(H ) <=22 ng/L 07/29/2024 11:03 PM [facility] Comment: This patient's troponin [...] troponin value can be found in the [facility] Test Catalog Troponin - [email or web address]/catalogs/565/[email or web address]/[email or web address] Reference: Fourth [place] Definition of Myocardial Infarction. Journal of the [place] [employer] 2018;72:9956-3534 Blood VENOUS BLOOD SPECIMEN / Unknown Venipuncture / Unknown 07/29/2024 10:31 PM EST 07/29/2024 10:36 PM EST Yrn Ward MD CHEMISTRY ORDERABL ES Performing Organization Address City/[facility]/ZIP Co de Phone Number [facility] [place] [address] * Potassium (07/29/2024 8:11 PM EST) Pathologist [facility] Potassium 4.1 3.5 - 5.0 mMol/L 07/29/2024 8:52 PM EST [facility] Blood VENOUS BLOOD SPECIMEN / Unknown Venipuncture / Unknown 07/29/2024 8:11 PM EST 07/29/2024 8:16 PM EST Aubree Silverio MD CHEMISTRY ORDERABL ES [facility] [place] [address] * (ABNORMAL) Troponin - Single (07/29/2024 8:11 [...] troponin value can be found in the [facility] Test Catalog Troponin - https://[email or web address].[email or web address]/catalogs/565/files/17047 Reference: Fourth [place] Definition of Myocardial Infarction. Journal of the [place] College of [employer] 2018;72:8775-8078 Blood VENOUS BLOOD SPECIMEN / Unknown Venipuncture / Unknown 07/29/2024 8:11 PM EST 07/29/2024 8:16 PM EST Aubree Silverio MD CHEMISTRY ORDERABL ES Performing Organization Address City/State/[facility] Co de Phone Number [facility] [place] [address] * (ABNORMAL) Phosphorus (07/29/2024 8:11 PM EST) Phosphorus 2.1(L) 2.5 - 4.5 mg/dL 07/29/2024 8:52 PM EST [facility] Blood VENOUS BLOOD SPECIMEN / Unknown Venipuncture / Unknown 07/29/2024 8:11 PM EST 07/29/2024 8:16 PM EST Aubree Silverio MD CHEMISTRY ORDERABL ES Performing Organization Address City/State/[facility] Co de Phone Number [facility] [place] [address] * POC, GLUCOSE (07/29/2024 8:09 PM EST) Glucometer, POC 142 65 - 199 mg/dL 07/29/2024 8:09 PM EST [facility] Comment:Supplemental ranges: <140 mg/dL before meals <180 mg/dL all other times of the day. Blood CAPILLARY BLOOD / Unknown 07/29/2024 8:09 PM EST 07/29/2024 8:09 PM EST Aubree Silverio MD POINT OF CARE TEST ORDERABLES Performing Organization Address [facility] Co de Phone Number [facility] [place] [address] * ABORH RECHECK (07/29/2024 6:43 PM EST) ABORH Recheck AB POSITIVE 07/29/2024 10:13 PM EST [facility] Blood VENOUS BLOOD SPECIMEN / Unknown Venipuncture / Unknown 07/29/2024 6:43 PM EST 07/29/2024 7:15 PM EST Aubree Silverio MD BLOOD BANK LAB ORD ERABLES Performing Organization Address [facility] Co de Phone Number [facility] [place] [address] * POC, GLUCOSE (07/29/2024 5:57 PM EST) Glucometer, POC 166 65 - 199 mg/dL 07/29/2024 5:57 PM EST [facility] Comment:Supplemental ranges: <140 mg/dL before meals <180 mg/dL all other times of the day. Blood CAPILLARY BLOOD / Unknown 07/29/2024 5:57 PM EST 07/29/2024 5:57 PM EST Aubree Silverio MD POINT OF CARE TEST ORDERABLES [facility] [place] [address] * Type and screen ([facility]AL[facility]) (07/29/2024 5:56 PM EST) [facility] ABORH Type AB POSITIVE 07/29/2024 9:44 PM EST [facility] PATIENT HISTORY Not Found 07/29/2024 9:44 PM EST [facility] Expires at [id number] on: 08/01/2024 07/29/2024 9:44 PM EST [facility] ANTIBODY SCREEN AUTOMATED Negative 07/29/2024 9:44 PM EST [facility] T&S only valid at [facility] 07/29/2024 9:44 PM EST [facility] Blood VENOUS BLOOD SPECIMEN / Unknown Venipuncture / Unknown 07/29/2024 5:56 PM EST 07/29/2024 6:07 PM EST Narrative [facility] - 07/29/2024 9:44 PM EST This Type and Screen result is only valid at the [facility] Aubree Silverio MD BLOOD BANK LAB ORD ERABLES Performing Organization Address City/[facility]/ZIP Co de Phone Number [facility] [place] [address] * (ABNORMAL) Troponin - Single (07/29/2024 4:52 PM EST) [facility] Troponin-T, High Sensitivity >10,000(H ) [...] troponin value can be found in the [facility] Test Catalog Troponin - https://[facility].testcatalog.org/catalogs/565/files/40231 Reference: Fourth [place] Definition of Myocardial Infarction. Journal of the [place] [employer]iology 2018;72:3486-8107 Blood VENOUS BLOOD SPECIMEN / Unknown Venipuncture / Unknown 07/29/2024 4:52 PM EST 07/29/2024 4:57 PM EST Aubree Silverio MD CHEMISTRY ORDERABL ES Performing Organization Address [facility]/ZIP Co de Phone Number [facility] [place] [address] * EKG 12 Lead (07/29/2024 4:21 PM EST) Ventricular rate 72 BPM MUSE SYSTEM Atrial Rate 72 BPM MUSE SYSTEM P-R Interval 168 ms MUSE SYSTEM QRS Duration 82 ms MUSE SYSTEM Q-T Interval 392 ms MUSE SYSTEM QTC Calculated (Bezet) 429 ms MUSE SYSTEM Calculated P [place] 71 degrees MUSE SYSTEM Calculated R [place] 77 degrees MUSE SYSTEM Calculated T [place] 28 degrees MUSE SYSTEM INTERPRETATION Sinus rhythm [...] Silverio MD ECG ORDERABLES Performing Organization Address City/[facility]/ZIP Co de Phone Number MUSE SYSTEM * (ABNORMAL) Blood Gas, Arterial POC (07/29/2024 4:21 PM EST) pH, Arterial 7.37 7.35 - 7.45 07/29/2024 4:22 PM [facility] PCO2, Arterial 36 35 - 45 mmHg 07/29/2024 4:22 PM [facility] PO2, Arterial 71(L) 85 - 104 mmHg 07/29/2024 4:22 PM [facility] Bicarbonate, Arterial 20.4 20.0 - 26.0 mmol/L 07/29/2024 4:22 PM [facility] Base Excess, Arterial -4.8(L) -3.0 - 3.0 mmol/L 07/29/2024 4:22 PM [facility] Hemoglobin, Arterial 12.2(L) 13.7 - 16.5 g/dL 07/29/2024 4:22 PM [facility] Oxyhemoglobin, Arterial 93.8(L) 94.0 - 97.0 % 07/29/2024 4:22 PM [facility] Carboxyhemoglobin , Arterial 0.5 % 07/29/2024 4:22 PM [facility] Comment: Nonsmokers: 0.5-1.5% COHB ?? Smokers: Variable ??but usually less than 10% ?? Toxic: 20-30% COHB ?? Lethal: Greater than 60% COHB Methemoglobin, Arterial 0.3 <=1.5 % 07/29/2024 4:22 PM [facility] Sodium, Arterial 134(L) 135 - 145 mmol/L 07/29/2024 4:22 PM [facility] Potassium, Arterial 4.2 3.5 - 5.0 mmol/L 07/29/2024 4:22 PM [facility] Chloride, Arterial 107 98 - 107 mmol/L 07/29/2024 4:22 PM [facility] Lactate, Arterial 1.5 0.5 - 2.2 mmol/L 07/29/2024 4:22 PM [facility] Fraction of Inspired Oxygen 21 % 07/29/2024 4:22 PM [facility] PF Ratio 338 Ratio 07/29/2024 4:22 PM [facility] Comment:PF ratio calculated using the non-temperature corrected pO2 result. IONIZED CALCIUM, ARTERIAL 1.12(L) 1.15 - 1.33 mmol/L 07/29/2024 4:22 PM [facility] Glucose, Arterial 181 65 - 199 mg/dL 07/29/2024 4:22 PM [facility] Comment:Glucose Concentratio n >=200 mg/dL plus symptoms is consistent with Diabetes Mellitus. Blood ARTERIAL BLOOD / Unknown 07/29/2024 4:21 PM EST 07/29/2024 4:22 PM EST Aubree Silverio MD POINT OF CARE TEST ORDERABLES Performing Organization Address City/[facility]/ZIP Co de Phone Number [facility] [place] [address] * POC, GLUCOSE (07/29/2024 4:19 PM EST) Glucometer, POC 185 65 - 199 mg/dL 07/29/2024 4:19 PM [facility] Comment:Supplemental ranges: <140 mg/dL before meals <180 mg/dL all other times of the day. Blood CAPILLARY BLOOD / Unknown 07/29/2024 4:19 PM EST 07/29/2024 4:19 PM EST Aubree Silverio MD POINT OF CARE TEST ORDERABLES [facility] [place] [address] * Blood culture (07/29/2024 4:08 PM EST) Blood Culture No growth at 120 hours 08/03/2024 5:01 PM EST [facility] Blood VENOUS BLOOD SPECIMEN / Unknown Venipuncture / Unknown 07/29/2024 4:08 PM EST 07/29/2024 4:15 PM EST Aubree Silverio MD MICROBIOLOGY - BLO OD ORDERABLES Performing Organization Address [facility] Co de Phone Number [facility] [place] [address] * Blood culture (07/29/2024 4:08 PM EST) Blood Culture No growth at 120 hours 08/03/2024 5:01 PM EST [facility] Blood VENOUS BLOOD SPECIMEN / Unknown Venipuncture / Unknown 07/29/2024 4:08 PM EST 07/29/2024 4:26 PM EST Aubree Silverio MD MICROBIOLOGY - BLO OD ORDERABLES Performing Organization Address [facility] de Phone Number [facility] [place] [address] * XR Chest One View (07/29/2024 2:30 PM EST) WORKSTATION ID [id number] DH RAD Anatomical Region Laterality Modality Chest [...] have questions please contact the health manager career that requested your imaging first. ? Narrative [...] who have questions please contactthe health manager career that requested your imaging first. Vahe Marvin MD IMG DX ORDERABLES * (ABNORMAL) APTT (07/29/2024 2:03 PM EST) Partial Thromboplastin Time >160(HHH) 25 - 37 sec 07/29/2024 2:56 PM EST [facility] Blood VENOUS BLOOD SPECIMEN / Unknown Venipuncture / Unknown 07/29/2024 2:03 PM EST 07/29/2024 2:13 PM EST Vahe Marvin MD HEMATOLOGY ORDERABLE S Performing Organization Address City/[facility]/ZIP Co de Phone Number [facility] [place] [address] * (ABNORMAL) Prothrombin Time (07/29/2024 2:03 PM [...] MD HEMATOLOGY ORDERABLE S Performing Organization Address [facility] Co de Phone Number [facility] [place] [address] * CRP, acute inflammation (07/29/2024 2:03 PM EST) C-Reactive Protein <3.0 <=4.9 mg/L 07/29/2024 2:52 PM EST [facility] Blood VENOUS BLOOD SPECIMEN / Unknown Venipuncture / Unknown 07/29/2024 2:03 PM EST 07/29/2024 2:14 PM EST Vahe Marvin MD CHEMISTRY ORDERABLES Performing Organization Address City/[facility]/ZIP Co de Phone Number [facility] [place] [address] * Lipid Panel (Reflex Direct LDL) (07/29/2024 2:03 PM EST) Cholesterol, Total 133 mg/dL 07/29/2024 2:52 PM [facility] Comment: Desirable: < 200 mg/dL Borderline High: 200 - 239 mg/dL High: > or = 240 mg/dL Triglyceride 45 mg/dL 07/29/2024 2:52 PM [facility] Comment: Normal: <150 mg/dL Borderline High: 150-199 mg/dL High: 200-499 mg/dL Very High: > or =500 mg/dL HDL Cholesterol 58 mg/dL 2:52 PM [facility] Comment:Males: High Risk: <4 0 mg/dL LDL Cholesterol 64 mg/dL 4 2:52 PM [facility] Comment: Desirable: <100 mg/dL Above Desirable: 100-129 mg/dL Borderline High: 130-159 mg/dL High: 160-189 mg/dL Very High: > or =190 mg/dL Note: LDL calculation updated to the NIH LDL formula as of 04/15/2024 Non-HDL Cholesterol 75 mg/dL 07/29/2024 2:52 PM [facility] Comment: Desirable: <130 mg/dL [...] MD CHEMISTRY ORDERABLES [facility] [place] [address] * TSH Schleicher (07/29/2024 2:03 PM EST) Thyroid Stimulating Hormone 0.70 0.27 - 4.20 mcIU/mL 07/29/2024 2:52 PM EST [facility] Blood VENOUS BLOOD SPECIMEN / Unknown Venipuncture / Unknown 07/29/2024 2:03 PM EST 07/29/2024 2:14 PM EST Vahe Marvin MD CHEMISTRY ORDERABLES [facility] [place] [address] * Hemoglobin A1c (07/29/2024 2:03 PM EST) Pathologist [facility] Hemoglobin A1c 5.3 4.3 - 5.6 % [...] red blood cell turnover may not be financial services representative of glycemic control. Reference Interval: 4.3 [...] into estimated average glucose values. ??Diabetes Care 2008:31(8):1885-2584. Additional resources are available on the ADA website (diabetes.org). Vahe Marvin MD CHEMISTRY ORDERABLES [facility] [place] [address] * (ABNORMAL) CBC (with Diff) (07/29/2024 2:03 PM EST) White Blood Cell 19.50(H) 4.00 - 9.50 x10(3)/mc L 07/29/2024 2:18 PM EST [facility] Red Blood Cell 4.81 4.58 - 5.54 x10(6)/mc L 07/29/2024 2:18 PM [facility] Hemoglobin 13.1(L) 13.7 - 16.5 g/dL 07/29/2024 2:18 PM EST [facility] Hematocrit 40.1(L) 40.5 - 48.5 % 07/29/2024 2:18 PM EST [facility] Mean Cell Volume 83.4 82.9 - 93.1 fL 07/29/2024 2:18 PM EST [facility] Mean Cell Hemoglobin 27.2(L) 27.5 - 32.1 pg 07/29/2024 2:18 PM [facility] Mean Cell Hemoglobin Concentration 32.7 32.0 - 35.7 g/dL 07/29/2024 2:18 PM EST [facility] Platelet 236 145 - 357 x10(3)/mc L 07/29/2024 2:18 PM [facility] Mean Platelet Volume 10.6 7.6 - 12.9 fL 07/29/2024 2:18 PM EST [facility] RDW Standard Deviation 43.7 36.0 - 45.0 fL 07/29/2024 2:18 PM [facility] RDW coefficient of variation 14.3(H) 11.4 - 13.8 % 07/29/2024 2:18 PM [facility] NRBC% auto 0.0 % 07/29/2024 2:18 PM [facility] NRBC Absolute <0.01 <0.01 x10(3)/mc L 07/29/2024 2:18 PM [facility] Neutrophil % 93.6 % 07/29/2024 2:18 PM [facility] Neutrophil Absolute (ANC) - Automated 18.28(H) 1.70 - 6.10 x10(3)/mc L 07/29/2024 2:18 PM [facility] Lymph % 2.7 % 07/29/2024 2:18 PM [facility] Lymph Absolute 0.52(L) 0.90 - 3.20 x10(3)/mc L 07/29/2024 2:18 PM [facility] Monocyte % 2.9 % 07/29/2024 2:18 PM [facility] Monocyte Absolute 0.56 0.30 - 0.90 x10(3)/mc L 07/29/2024 2:18 PM [facility] Eos % 0.0 % 07/29/2024 2:18 PM [facility] Eos Absolute <0.04 0.00 - 0.40 x10(3)/mc L 07/29/2024 2:18 PM [facility] Basophil % 0.3 % 07/29/2024 2:18 PM [facility] Baso Absolute 0.05 0.00 - 0.10 x10(3)/mc L 07/29/2024 2:18 PM [facility] Immature Gran % 0.5 % 2:18 PM [facility] Immature Gran Absolute 0.09(H) 0.00 - 0.04 x10(3)/mc L 07/29/2024 2:18 PM [facility] Blood VENOUS BLOOD SPECIMEN / Unknown Venipuncture / Unknown 07/29/2024 2:03 PM EST 07/29/2024 2:13 PM EST Vahe Marvin MD HEMATOLOGY ORDERABLE S [facility] [place] [address] * Phosphorus (07/29/2024 2:03 PM EST) Phosphorus 2.5 2.5 - 4.5 mg/dL 07/29/2024 2:52 PM EST [facility] Blood VENOUS BLOOD SPECIMEN / Unknown Venipuncture / Unknown 07/29/2024 2:03 PM EST 07/29/2024 2:14 PM EST Vahe Marvin MD CHEMISTRY ORDERABLES Performing Organization Address City/[facility]/ZIP Co de Phone Number [facility] [place] [address] * Magnesium (07/29/2024 2:03 PM EST) Pathologist [facility] Magnesium 0.70 0.69 - 1.07 mMol/L 07/29/2024 2:52 PM EST [facility] Blood VENOUS BLOOD SPECIMEN / Unknown Venipuncture / Unknown 07/29/2024 2:03 PM EST 07/29/2024 2:14 PM EST Vahe Marvin MD CHEMISTRY ORDERABLES [facility] [place] [address] * (ABNORMAL) Comprehensive metabolic panel (07/29/2024 2:03 PM EST) Glucose 243(H) 65 - 199 mg/dL 07/29/2024 3:11 PM EST [facility] Comment:Glucose Concentratio n >=200 mg/dL plus symptoms is consistent with Diabetes Mellitus. Blood Urea Nitrogen 13 10 - 20 mg/dL 07/29/2024 3:11 PM EST [facility] Creatinine 0.88 0.80 - 1.50 mg/dL 07/29/2024 3:11 PM [facility] Sodium 138 135 - 145 mMol/L 07/29/2024 3:11 PM [facility] Potassium 3.6 3.5 - 5.0 mMol/L 07/29/2024 3:11 PM [facility] Chloride 104 98 - 107 mMol/L 07/29/2024 3:11 PM [facility] Carbon Dioxide 19(L) 22 - 31 mMol/L 07/29/2024 3:11 PM [facility] Anion Gap 15 5 - 15 mMol/L 07/29/2024 3:11 PM [facility] Calcium 8.0(L) 8.5 - 10.5 mg/dL 07/29/2024 3:11 PM [facility] Protein, Total 6.0(L) 6.1 - 8.0 g/dL 07/29/2024 3:11 PM [facility] Albumin 3.6 3.2 - 5.2 g/dL 07/29/2024 3:11 PM [facility] Aspartate Aminotransferase 07/29/2024 3:11 PM [facility] Comment:Unable to report due to hemolysis. Alanine Aminotransferase 56(H) 0 - 55 unit/L 07/29/2024 3:11 PM [facility] Alkaline Phosphatase 58 40 - 130 unit/L 07/29/2024 3:11 PM [facility] Bilirubin, Total 0.5 <=1.3 mg/dL 07/29/2024 3:11 PM [facility] Est Glomerular Filtration Rate - Male 91 mL/min/1. 73 m?? 07/29/2024 3:11 PM [facility] Comment: This patient's estimated [...] MD CHEMISTRY ORDERABLES [facility] [place] [address] * (ABNORMAL) Troponin - Single (07/29/2024 2:03 PM EST) Pathologist [facility] Troponin-T, High Sensitivity >10,000(H ) <=22 ng/L [...] troponin value can be found in the [facility] Test Catalog Troponin - [email or web address].org/catalogs/565/files/25772 Reference: Fourth [place] Definition of Myocardial Infarction. Journal of the [place] [employer] 2018;72:0025-4085 Blood VENOUS BLOOD SPECIMEN / Unknown Venipuncture / Unknown 07/29/2024 2:03 PM EST 07/29/2024 2:14 PM EST Vahe Marvin MD CHEMISTRY ORDERABLES [facility] [place] [address] * (ABNORMAL) Blood Gas, Venous POC (07/29/2024 2:01 PM EST) pH, Venous 7.30(L) 7.32 - 7.42 07/29/2024 2:02 PM EST [facility] PCO2, Venous 42 38 - 58 mmHg 07/29/2024 2:02 PM [facility] PO2, Venous 39 16 - 65 mmHg 07/29/2024 2:02 PM [facility] Bicarbonate, Venous 20.1(L) 22 - 31 mmol/L 07/29/2024 2:02 PM [facility] Base Excess, Venous -6.4(L) 1.9 - 4.5 mmol/L 07/29/2024 2:02 PM [facility] Hemoglobin, Venous 14.2 13.7 - 16.5 g/dL 07/29/2024 2:02 PM [facility] Oxyhemoglobin, Venous 69.3 % 07/29/2024 2:02 PM [facility] Carboxyhemoglobin , Venous 0.8 % 07/29/2024 2:02 PM [facility] Comment: Nonsmokers: 0.5-1.5% COHB ?? Smokers: Variable ??but usually less than 10% ?? Toxic: 20-30% COHB ?? Lethal: Greater than 60% COHB Methemoglobin, Venous 0.3 <=1.5 % 07/29/2024 2:02 PM [facility] Sodium, Venous 137 135 - 145 mmol/L 07/29/2024 2:02 PM [facility] Potassium, Venous 3.6 3.5 - 5.0 mmol/L 07/29/2024 2:02 PM [facility] Chloride, Venous 103 98 [...] CARE TEST O RDERABLES Performing Organization Address City/State/[facility] Co de Phone Number [facility] [place] [address] * CARDIAC CATHETERIZATION (07/29/2024 1:20 PM EST) Anatomical Region Laterality Modality Other Narrative 07/29/2024 2:02 PM EST ?[facility] ? Cardiac Catheterization/Intervention Report ? Patient Name: Korey Montoya Driss ? Procedure Date: 07/29/2024 ? A #: [id number] ? Primary Physician: Vahe Marvin ? Case #: [id number] ? File Name: [id number] ? Catheterization Order Number: [id number] ? [facility] ? Final Report [place], [place] ? Patient Name: ? Korey P. Montoya ?ID#: ?[id number] ? : ?1950 ? Procedure Date: ? [...] procedure was Emergent. The indication for ?the orthodontic laboratory technician visit is ACS less than [...] 3.5 guiding catheter and a 3.5 Fr [place] [facility] [place] [address] ??20 Mhz using ?Manual pullback. ??Imaging [...] A premounted 3.00 x 22 mm [place] (LOW) was deployed ? with a maximum [...] atmospheres. ??A premounted 3.00 x 08 mm [place] (LOW) ? was deployed with a maximum [...] dose administered prior to arrival in the orthodontic laboratory technician. ?Recommended anti-platelet/anti-thrombotic regimen: ?Start aspirin 81 mg daily now and continue for 12 months then stop. ?Start clopidogrel 75 mg daily now and continue for indefinitely. ?These recommendations are made at the time of the intervention. Patient ?and provider preferences or a changing clinical situation may require ?modification of this regimen. Consult [facility] Interventional Cardiology for ?questions. ?The 1 year [...] able ?to start weaning his inotropes/vasopressors. A [place] Colette catheter was ?placed demonstrating improvement in his hemodynamics and the impella site ?was perclosed and hemostatic gauze was applied with excellent result. ?WIll transfer to the [facility] for further management. ?The attending physician was present for the entire procedure. ?Dr. Vahe Marvin M.D. was present during the moderate sedation ?intraservice time as documented by the sedation nurse. ??Case time = 01:26. ?Dr. Vahe Marvin M.D. performed the coronary angiography, left heart ?catheterization, IVUS # coronary, stent insertion-coronary, oximetry, ABG, ?transthoracic echo , ventricular assist device insertion, right heart ?catheterization, [place] (flow directed cath) insertion, access site ?angiography, vascular ultrasound, venous line / sheath insert and vascular ?closure device. ? Vahe Marvin M.D. ? Electronically Signed by: Vahe Marvin M.D. ? Report Finalized: 07/29/2024 ??13:55 ? Report Last Ammended: 07/30/2024 ??10:15 ? Procedure Note Vahe Marvin MD - 07/30/2024 [facility] Cardiac Catheterization/Intervention Report Patient Name: Korey Montoya Procedure Date: 07/29/2024 A #: [id number] Primary Physician: Vahe Marvin Case #: [id number] File Name: [id number] Catheterization Order Number: [id number] [facility] FinalReport [place], [place] Patient Name: Korey Montoya ID#:[id number] :1950 Procedure Date: July 29, 2024 Case [...] diagnostic procedure was Emergent. Theindication for the orthodontic laboratory technician visit is ACS less than [...] 3.5 guiding catheter and a 3.5 Fr [place] [facility] [place] [address] 20 Mhzusing Manual pullback. Imaging was [...] The priority for the procedure was Emergent.The [facility] indication for the procedure was STEMI-Immediate PCI [...] The lesion was predilated with a 2.00mm [id number] MM balloon with a maximum inflation pressure of 12atmospheres. A premounted 3.00 x 22 mm [place] (LOW) wasdeployed with a maximum inflation pressure [...] A premounted 3.00 x 08 mm [place](LOW) was deployed with a maximum inflation pressure [...] dose administered prior to arrival in the orthodontic laboratory technician. Recommended anti-platelet/anti-thrombotic regimen: Start aspirin 81 mg daily now and continue for 12 months then stop. Start clopidogrel 75 mg daily now and continue for indefinitely. These recommendations are made at the time of the intervention.Patient and provider preferences or a changing clinical situation mayrequire modification of this regimen. Consult [facility] Interventional Cardiologyfor questions. The 1 year bleeding [...] wereable to start weaning his inotropes/vasopressors. A [place] Colette catheterwas placed demonstrating improvement in his [...] ventricular assist device insertion, right heart catheterization, [place] (flow directed cath) insertion, access site angiography, [...] 3.5 - 5.0 mmol/L 07/30/2024 7:30 AM [facility] pH, POC 7.33(L) 7.35 - 7.45 07/30/2024 7:30 AM [facility] Ionized Calcium, POC 1.13(L) 1.15 - 1.33 mmol/L 07/30/2024 7:30 AM [facility] pCO2, POC 38 35 - 45 mmHg 07/30/2024 7:30 AM [facility] pO2, POC 94 85 - 104 mmHg 07/30/2024 7:30 AM [facility] Base Excess, POC -6.0(L) -3.0 - 3.0 mmol/L 07/30/2024 7:30 AM [facility] Hematocrit, POC 39.0(L) 40.5 - 48.5 %PCV 07/30/2024 7:30 AM [facility] Hemoglobin, POC 13.3(L) 13.7 - 16.5 g/dL 07/30/2024 7:30 AM [facility] Comment:The calculation of h emoglobin from hematocrit assumes a normal MCHC. Bicarbonate, POC 19.8(L) 20.0 - 26.0 mmol/L 07/30/2024 7:30 AM [facility] Carbon Dioxide, POC 21(L) 22 - 31 mmol/L 07/30/2024 7:30 AM [facility] Blood VENOUS BLOOD SPECIMEN / Unknown 07/29/2024 12:46 PM EST 07/30/2024 7:30 AM EST Vahe Marvin MD POINT OF CARE TEST O RDERABLES [facility] [place] [address] * (ABNORMAL) BLOOD GAS, POC (07/29/2024 12:12 PM EST) Sodium, POC 135 135 - 145 mmol/L 07/30/2024 7:30 AM [facility] Potassium, POC 3.8 3.5 - 5.0 mmol/L 07/30/2024 7:30 AM [facility] pH, POC 7.27(LLL) 7.35 - 7.45 07/30/2024 7:30 AM [facility] Ionized Calcium, POC 1.14(L) 1.15 - 1.33 mmol/L 07/30/2024 7:30 AM [facility] pCO2, POC 43 35 - 45 mmHg 07/30/2024 7:30 AM [facility] pO2, POC 131(H) 85 - 104 mmHg 07/30/2024 7:30 AM [facility] Base Excess, POC -7.0(L) -3.0 - 3.0 mmol/L 07/30/2024 7:30 AM [facility] Hematocrit, POC 36.0(L) 40.5 - 48.5 %PCV 07/30/2024 7:30 AM [facility] Hemoglobin, POC 12.2(L) 13.7 - 16.5 g/dL 07/30/2024 7:30 AM [facility] Comment:The calculation of h emoglobin from hematocrit assumes a normal MCHC. Bicarbonate, POC 19.7(L) 20.0 - 26.0 mmol/L 07/30/2024 7:30 AM [facility] Carbon Dioxide, POC 21(L) 22 - 31 mmol/L 07/30/2024 7:30 AM [facility] Blood VENOUS BLOOD SPECIMEN / Unknown 07/29/2024 12:12 PM EST 07/30/2024 7:30 AM EST Vahe Marvin MD POINT OF CARE TEST O RDERABLES [facility] [place] [address] documented in this encounter Visit Diagnoses Not [...] Routine documented in this encounter Care Teams Teleradiologist Relationship Specialty Start Date End Date Alexia Mtz, REMOTE MEDICAL CODER [address] [place] [address] PCP - General Family Medicine 07/30/24 documented as of this encounter
--- OUTSIDE RECORDS SUMMARY | 2024-08-29 10:31 | XMS_ITS | Encounter Summary ---
Author Organization [facility] [place] [address] Care Team Providers Care Packaging Clerk Name Role Phone Yoel Artis APRN Primary Care Provider [phone] Reason for Referral * Consultation (Routine) - Closed Specialty Diagnoses / Procedures Referred By Theodore muro Referred To Contact Gastroenterology Diagnoses Proctalgia fugax Fecal smearing Constipation, unspecified constipation type group Yoel Dangelo APRN [facility] [place] [address] Paulette Glynn, PhD [facility] [place] [address] Referral ID Status Reason Start Date Expiration Date V isits Requested Visits Authorized [id number] Closed Consult, Test & Treat 06/01/2023 05/31/2024 1 1 Reason for Visit * Consultation (Routine) - Closed Specialty Diagnoses / Procedures Referred By Theodore muro Referred To Contact Gastroenterology Diagnoses Anal spasm motility- anal spasms Yoel Artis APRN [address] [place] [address] [facility] [address] [place] [address] Referral ID Status Reason Start Date Expiration Date V isits Requested Visits Authorized [id number] Closed Consult, Test & Treat PCP Updated and/or Approved 11/18/2022 11/18/2023 6 6 Encounter Details Date Type Department Care Team (Latest Contact Info) Description 06/01/2023 8:00 AM EDT TH Visit (TeleHealth) [place] [address] Yoel Dangelo, TECHNICAL SUPPORT ASSOCIATE [facility] [place] [address] Proctalgia fugax; Fecal smearing; Constipation, unspecified constipation [...] hear from us within 1 week: Clinic [phone] Motility Lab scheduling [phone] Endoscopy scheduling- [phone] Diagnostics: -Colonoscopy for rectal pain -Anorectal manometry [...] connection and our services, please visit the [facility] GI Behavioral health website at: [email or web address]. Our hope is that through these classes, [...] please contact your insurance company or the [facility] billing office ([email or web address]). Your insurance company may request a CPT code if you ask about coverage. [place] [address]. If you're interested in attending any of these classes or workshops, please reach out to our scheduling team via [facility] or phone ([phone]). You should start a fiber supplement if [...] Handout for Patients and Primary Care Providers [facility] Gastrointestinal Motility, Esophageal, and Swallowing Disorders Center What are functional bowel disorders? These are the most common type of gastrointestinal disorders in the [facility] The most common functional bowel disorder in the [facility] is irritable bowel syndrome (IBS) Irritable bowel [...] what is the impact? 15-20% of general [place] population has IBS or FD or both 2nd most common cause for lost work days (after common cold) in [place] Estimated $30 billion dollar cost to [place] economy per year These disorders can have [...] with immediate onset of symptoms after infection); prison symptoms are expected in most patients however [...] to you primary care provider and/or local windows server administrator and share this document. Treatment of functional [...] - this approach benefits most patients OTC (qdzk-kjk-vevbtcj) medications can be used for ongoing bothersome symptoms as listed below Your provider (PCP or local Gastroenterology provider or [facility] Gastroenterology provider) may decide to use [...] All-Bran psyllium buds, Metamucil, Konsyl, bulk psyllium ([employer] stores and [employer] stores) Specifically we recommend starting Metamucil or [...] but convincing medical evidence is still lacking Fcng-rxg-diwkxis supplements including probiotics are not typically evaluated [...] to decrease antibiotic-associated diarrhea and antibiotic-related infections Vbex-aaf-Rxzpyuo Medications for Functional Gut Disorders Based on [...] a stool softener that is safe for seal mixing operator usage (no risk of dependency) andthe dosage [...] (GERD) Often a combination of anti-nausea medications (yofl-gip-kzkuccz or prescription) works better thanhigh doses of [...] for misuse/misinterpretation of this information Patient Resources [place] [employer] https://www.gastro.org/practice-guidance/fb-iyvndab-uynrtu/ topic/adbewsaph-nqkoh-sivajvlm-ibs Badgut.org https://badgut.org/information-centre/m-e-xiixsgkko-topics/ibs/ AboutIBS.org https://www.aboutibs.org/ Uptodate.com https://www.uptodate.com/contents/ojpfynqsx-dnaoc-voobppjm-nkzgjr-rbs-ttptvi documented in this encounter Progress Notes * [...] Denies weight loss Last colo 2017 at [facility] with no polyps. Current Regimen: Metamucil daily [...] recommendations above. The patient was located in [place] at the time of their visit. TIME SPENT WITH PATIENT Time spent reviewing records prior to this encounter on day of appointment: 2 minutes Time spent during encounter with patient including counselin minutes Time spent documenting encounter after office visit: 7 minutes Yoel Dangelo APRN [facility] [place] [address] documented in this encounter Plan of Treatment Upcoming Encounters Date Type Department Care Team (Late st Contact Info) Description 10/01/2024 10:00 AM EST Office Visit Cardiology at [address] [place] [address] Mushtaq Murphy APRN Scheduled Orders Name Type [...] type documented in this encounter Care Teams Packaging Clerk Relationship Specialty Start Date End Date Yoel Artis APRN [address] [place] [address] PCP - General Internal Medicine 11/18/22 07/29/24 documented as of this encounter
--- OUTSIDE RECORDS SUMMARY | 2024-08-29 10:31 | XMS_ITS | Encounter Summary ---
[place] [address] Care Team Providers Care Multi Needle Machine Operator Name Role Phone Yoel Artis FREDRICK Primary Care Provider [phone] Encounter Details Date Type Department Care Team (Late st Contact Info) Description 01/16/[address] [facility] [address] [place] [address] Chaparro Montana MD [address] [place] [address] Social History Tobacco Use Types Packs/Day Years [...] AM EST Office Visit Cardiology at [address] [address] Mushtaq Murphy APRN documented as of this encounter Procedures Procedure Name Priority Date/Time Associated Diagnosis Comments XR CHEST ONE VIEW STAT 01/16/2024 4:0 4 PM EDT documented in this encounter Results * XR Chest One View (01/16/2024 4:04 PM EDT) PT CLASS E RAD ADMITDTTM [id number] [facility] PT RAD INFO [id number]^Jordy henry^[facility] RAD EXAM DESC XCXR1^XR Chest 1 View^RIS [facility] WORKSTATION ID [id number] [facility] Anatomical Region Laterality Modality Chest N/A Radiographic Farida ging 01/16/2024 4:04 PM EDT Impressions 01/16/2024 4:08 PM EDT No active cardiopulmonary disease. Thank you for letting us participate in the care of this patient. ??If you are a health care provider and have any questions regarding this report, please contact the number below. ??For patients who have questions please contact the health auto care center manager that requested your imaging [...] patients who have questions please contactthe health auto care center manager that requested your imaging first. Chaparro Montana MD IMG DX ORDERABLES documented in this encounter Visit Diagnoses Not on filedocumented in this encounter Care Teams Multi Needle Machine Operator Relationship Specialty Start Date End Date Yoel Artis APRN [address] [place] [address] PCP - General Internal Medicine 11/18/22 07/29/24 documented as of this encounter
--- OUTSIDE RECORDS SUMMARY | 2024-08-29 10:31 | XMS_ITS | Encounter Summary ---
Author Organization [facility] [address] Care Team Providers Care Hydraulic Assembler Name Role Phone Yoel Artis APRN Primary Care Provider [phone] Reason for Referral * Consultation (Routine) - Closed Specialty Diagnoses / Procedures Referred By Theodore muro Referred To Contact Gastroenterology Diagnoses Anal spasm anal spasm Yoel Artis APRN [address] [place] [address] [facility] [address] [place] [address] Referral ID Status Reason Start Date Expiration Date V isits Requested Visits Authorized [id number] Closed Consult, Test & Treat PCP Updated and/or Approved 05/26/2023 05/25/2024 6 6 Encounter Details Date Type Department Care Team (Late st Contact Info) Description 05/26/2023 Transcribe Orders eDH Incoming Referrals [phone] Yoel Artis APRN [address] [place] [address] Anal spasm Social History Tobacco [...] 10:00 AM EST Office Visit Cardiology at [address] [address] Mushtaq Murphy APRN Scheduled Referrals Name Type Priority Associated Diagnoses Order Schedule Referral to Gastroenterology Outpatient Referral Routine Anal spasm Ordered: 05/26/2023 documented as of this encounter Visit Diagnoses Diagnosis Anal spasm documented in this encounter Care Teams Hydraulic Assembler Relationship Specialty Start Date End Date Yoel Artis APRN [address] [place] [address] PCP - General Internal Medicine 11/18/22 07/29/24 documented as of this encounter
--- OUTSIDE RECORDS SUMMARY | 2024-08-29 10:31 | XMS_ITS | Encounter Summary ---
[place] [address] Care Team Providers Care Copier Field Service Technician Name Role Phone Yoel Artis FREDRICK Primary Care Provider [phone] Encounter Details Date Type Department Care Team (Late st Contact Info) Description 01/16/2024 Interpretation Only [facility] [address] [place] [address] Chaparro Montana MD [address] [place] [address] Social History Tobacco Use Types Packs/Day Years [...] AM EST Office Visit Cardiology at [address] [address] Mushtaq Murphy APRN documented as of this encounter Procedures Procedure Name Priority Date/Time Associated Diagnosis Comments CT HEAD WO CONTRAST (GENERIC) STAT 01/16/2024 4:17 PM EDT documented in this encounter Results * CT Head wo Contrast (Generic) (01/16/2024 4:17 PM EDT) PT CLASS E RAD ADMITDTTM [id number] RAD PT RAD INFO [id number]^Haniss henry^[facility] RAD EXAM DESC CTHEAD^CT Head w/o Contrast^RIS [facility] WORKSTATION ID [id number] [facility] Anatomical Region Laterality Modality Head Computed Tomogra phy 01/16/2024 4:03 PM EDT Impressions 01/16/2024 4:25 PM EDT No acute intracranial pathology. Thank you for letting us participate in the care of this patient. ??If you are a health care provider and have any questions regarding this report, please contact the number below. ??For patients who have questions please contact the health child care worker that requested your imaging first. ? Narrative [...] have questions please contactthe health child care worker that requested your imaging first. Electronically signed by: Alejandro Tenorio MD, [facility]([phone]), at 01/16/2024 4:25 PM Chaparro Montana MD IMG CT ORDERABLES documented in this encounter Visit Diagnoses Not on filedocumented in this encounter Care Teams Copier Field Service Technician Relationship Specialty Start Date End Date Yoel Artis APRN [address] [place] [address] PCP - General Internal Medicine 11/18/22 07/29/24 documented as of this encounter
--- OUTSIDE RECORDS SUMMARY | 2024-08-29 10:31 | XMS_ITS | Encounter Summary ---
[place] [address] Care Team Providers Care Double Cutter Name Role Phone Yoel Artis Ute ALCALA Primary Care Provider [phone] Encounter Details Date Type Department Care Team (Late st Contact Info) Description 08/26/2023 Telephone [place] [address] Madelyn Vasquez Social History Tobacco Use Types [...] - 08/26/2023 9:23 AM EST Korey Montoya [id number] Diagnosis/Indication: Rectal pain, fecal smearing Please review [...] ever had a/an Colonoscopy before? Yes: Date uiticb0ein ago [facility] If yes, did you have any [...] procedure? No You must have a responsible libertarian who will drive you to your procedure, stay on campus for the entire duration of your procedure, and drive you home from your procedure. Who will likely be your driver lifter of sanitation truck for the procedure? Please Verify the height [...] 10:00 AM EST Office Visit Cardiology at [address] [address] Mushtaq Murphy APRN documented as of this encounter Visit Diagnoses Not on filedocumented in this encounter Care Teams Double Cutter Relationship Specialty Start Date End Date Yoel Artis APRN [address] [place] [address] PCP - General Internal Medicine 11/18/22 07/29/24 documented as of this encounter
--- OUTSIDE RECORDS SUMMARY | 2024-08-29 10:31 | XMS_ITS | Encounter Summary ---
Author Organization [facility] Address [facility] [place] [address] Care Team Providers Care Economics Professor Name Role Phone Carola Artis APRN Primary Care Provider [phone] Encounter Details Date Type Department Care Team (Latest Contact Info) Description 11/30/2023 8:00 AM EDT TH Visit (TeleHealth) [place] [address] Carola Dangelo APRN [facility] [place] [address] Proctalgia fugax; Constipation, unspecified constipation type Social [...] Handout for Patients and Primary Care Providers [facility] Gastrointestinal Motility, Esophageal, and Swallowing Disorders Center What are functional bowel disorders? These are the most common type of gastrointestinal disorders in the [facility] The most common functional bowel disorder in [...] what is the impact? 15-20% of general [place] population has IBS or FD or both 2nd most common cause for lost work days (after common cold) in [place] Estimated $30 billion dollar cost to [place] economy per year These disorders can have [...] with immediate onset of symptoms after infection); manager intermediate symptoms are expected in most patients however [...] to you primary care provider and/or local medical technologist prn and share this document. Treatment of functional [...] - this approach benefits most patients OTC (raxt-jao-skifuqu) medications can be used for ongoing bothersome symptoms as listed below Your provider (PCP or local Gastroenterology provider or [facility] Gastroenterology provider) may decide to [...] All-Bran psyllium buds, Metamucil, Konsyl, bulk psyllium ([employer] and [employer] stores) Specifically we recommend starting Metamucil or [...] but convincing medical evidence is still lacking Mfso-mws-wihxtkv supplements including probiotics are not typically evaluated [...] to decrease antibiotic-associated diarrhea and antibiotic-related infections Sqgc-vil-Iywkxjd Medications for Functional Gut Disorders Based on [...] (GERD) Often a combination of anti-nausea medications (kcap-sns-jptjykg or prescription) works better thanhigh doses of [...] for misuse/misinterpretation of this information Patient Resources [place] [employer] https://www.gastro.org/practice-guidance/uj-nhbwvvd-bezhoe/ topic/nczjuwixj-votpt-qzjroynj-ibs Badgut.org https://badgut.org/information-centre/e-y-fzbwutwox-topics/ibs/ AboutIBS.org https://www.aboutibs.org/ Uptodate.com https://www.uptodate.com/contents/yyspepyve-iqahn-rigntbiq-rzdkpl-eku-facwaq documented in this encounter Progress Notes * [...] Take by mouth. nitroGLYcerin (NITROLINGUAL) 400 mcg/spray [place], Non-Aerosol 1 spray to anus for proctalgia fugax as needed, not to exceed once daily 12 g 0 No facility-administered medications prior to visit. Allergies: has No Known Allergies. Past Medical History: has a past medical history of ADHD, HLD (hyperlipidemia), HTN (hypertension),and Tremor. Past Surgical History: has a past surgical history that includes Hand surgery and Colonoscopy, Antonieta Pfeiffer ([id number]) (N/A, 08/30/2023). Family History: family history is [...] for re-evaluation. The patient was located in [place] at the time of their visit. Carola Dangelo APRN [facility] [place] [address] documented in this encounter Miscellaneous Notes * Addendum Note - Carola Dangelo APRN - 11/30/2023 8:00 AM EDTAddended by: CAROLA DANGELO on: 11/30/2023 08:46 AM Modules accepted: Level of Service documented in this encounter Plan of Treatment Upcoming Encounters Date Type Department Care Team (Late st Contact Info) Description 10/01/2024 10:00 AM EST Office Visit Cardiology at [address] [address] Mushtaq Murphy APRN documented as of this encounter Visit Diagnoses Diagnosis Proctalgia fugax Anal spasm Constipation, unspecified constipation type documented in this encounter Care Teams Economics Professor Relationship Specialty Start Date End Date Carola Artis APRN [address] [place] [address] PCP - General Internal Medicine 11/18/22 07/29/24 documented as of this encounter
--- OUTSIDE RECORDS SUMMARY | 2024-08-29 10:31 | XMS_ITS | Encounter Summary ---
Author Organization [place] [address] Care Team Providers Care Contracts Manager Name Role Phone Alexia Mtz BRAKE PRESS OPERATOR Primary Care Provider [phone] Encounter Details Date Type Department Care Team (Late st Contact Info) Description 06/25/2024 Lab [place] [address] Aubrey Cali MD [address] [place] [address] Pyuria Social History Tobacco Use Types Packs/Day [...] AM EST Office Visit Cardiology at [address] [phone] Mushtaq Murphy APRN documented as of this encounter Procedures Procedure Name Priority Date/Time Associated Diagnosis Comments URINE CULTURE Routine 06/25/2024 11:55 AM EDT Pyuria documented in this encounter Results * Urine culture (06/25/2024 11:55 AM EDT) Urine Culture No growth 06/26/2024 12:22 PM EDT [facility] Urine URINE SPECIMEN OBTAINED BY CLEAN CATCH PROCEDURE / Unknown 06/25/2024 11:55 AM EDT 06/25/2024 5:18 PM EDT Aubrey Cali MD MICROBIOLOGY - GENER AL ORDERABLES [facility] [place] [address] documented in this encounter Visit Diagnoses Diagnosis Pyuria Other nonspecific finding on examination of urine documented in this encounter Care Teams Contracts Manager Relationship Specialty Start Date End Date Alexia Mtz, BRAKE PRESS OPERATOR [address] [place] [address] PCP - General Family Medicine 07/30/24 documented as of this encounter
--- OUTSIDE RECORDS SUMMARY | 2024-08-29 10:31 | XMS_ITS | Encounter Summary ---
[place] [address] Care Team Providers Care Copy Manager Name Role Phone Anibal Mtz MD Primary Care Provider [phone] Encounter Details Date Type Department Care Team (Late st Contact Info) Description 01/18/2019 3:00 PM EDT Interpretation Only Cardiology at [address] [phone] Alberto Powell Jr., MD [address] [place] [address] Dizziness Social History Tobacco Use Types Packs/Day [...] AM EST Office Visit Cardiology at [address] [address] Mushtaq Murphy APRN documented as of this [...] giddiness documented in this encounter Care Teams Copy Manager Relationship Specialty Start Date End Date Anibal Mtz MD [address] [place] [address] PCP - General Family Medicine 01/17/19 11/17/22 documented as of this encounter
--- OUTSIDE RECORDS SUMMARY | 2024-08-29 10:31 | XMS_ITS | Encounter Summary ---
Author Organization [facility] [place] [address] Care Team Providers Care Vp Medical Name Role Phone Yoel Artis APRN Primary Care Provider Reason for Referral * Consultation (Routine) - Closed Specialty Diagnoses / Procedures Referred By Theodore muro Referred To Contact Gastroenterology Diagnoses Anal spasm motility- anal spasms Yoel Artis APRN [address] [place] [address] [facility] [address] [place] [phone] Referral ID Status Reason Start Date Expiration Date V isits Requested Visits Authorized [id number] Closed Consult, Test & Treat PCP Updated and/or Approved 11/18/2022 11/18/2023 6 6 Encounter Details Date Type Department Care Team (Late st Contact Info) Description 11/18/2022 Transcribe Orders eDH Incoming Referrals [phone] Yoel Artis APRN [address] [place] [address] Anal spasm Social History Tobacco [...] AM EST Office Visit Cardiology at [address] [address] Mushtaq Murphy APRN Scheduled Referrals Name Type Priority Associated Diagnoses Order Schedule Referral to Gastroenterology Outpatient Referral Routine Anal spasm Ordered: 11/18/2022 documented as of this encounter Visit Diagnoses Diagnosis Anal spasm documented in this encounter Care Teams Vp Medical Relationship Specialty Start Date End Date Yoel Artis APRN [address] [place] [address] PCP - General Internal Medicine 11/18/22 07/29/24 documented as of this encounter
--- OUTSIDE RECORDS SUMMARY | 2024-08-29 10:31 | XMS_ITS | Encounter Summary ---
Author Organization [facility] [place] [address] Care Team Providers Care Manager Bank Name Role Phone Alexia Mtz STENCIL CUTTER Primary Care Provider [phone] Encounter Details Date Type Department Care Team (Late st Contact Info) Description 04/23/2024 [place] [address] Alexia Mtz, STENCIL CUTTER [address] [place], [place] [phone] Elevated prostate specific antigen (PSA) Social History [...] AM EST Office Visit Cardiology at [address] [address] Mushtaq Murphy APRN documented as of this encounter Procedures Procedure Name Priority Date/Time Associated Diagnosis Comments PSA (ULTRASENSITIVE), TOTAL AND FREE Routine 04/23/2024 1:09 PM EDT Elevated prostate specific antigen (PSA) documented in this encounter Results * (ABNORMAL) PSA (Ultrasensitive), total and free (04/23/2024 1:09 PM EDT) Prostate Specific Antigen (Ultrasensitive) 5.24(H) 0.00-4.00 ng/mL ng/ml 04/23/2024 5:18 PM EDT [facility] Comment:The reference interv al (0 [...] Free 1.1 ng/ml 04/23/2024 5:18 PM EDT [facility] Comment:This result was gene rated using a [place] [employer] Osiel immunoassay. Results obtained from other methods or manufacturers cannot be used interchangeably with this method. PSA % Free 21 % 04/23/2024 5:18 PM EDT [facility] Comment: Probability of finding ADMINISTRATIVE VOLUNTEER on needle biopsy by age in years: [...] PM EDT Alexia Mtz APRN CHEMISTRY ORDERABLES [facility] [place] [place] [address] documented in this encounter Visit Diagnoses Diagnosis Elevated prostate specific antigen (PSA) documented in this encounter Care Teams Manager Bank Relationship Specialty Start Date End Date Alexia Mtz APRN [address] [place] [address] PCP - General Family Medicine 07/30/24 documented as of this encounter
--- OUTSIDE RECORDS SUMMARY | 2024-08-29 10:31 | XMS_ITS | Encounter Summary ---
Author Organization [facility] [place] [address] Care Team Providers Care Medical Services Manager Name Role Phone Unknown Primary Care Provider Unavailabl e Encounter Details Date Type Department Care Team (Late st Contact Info) Description 12/03/2018 Interpretation Only [address] [phone] Ac Albrecht PA [address] [place] [address] [place] [address] Social History Tobacco Use Types Packs/Day Years [...] AM EST Office Visit Cardiology at [address] [address] Mushtaq Murphy APRN documented as of this [...] Electronically signed by: Darvin Noyola [facility] ([phone]), at 12/03/2018 1:33 PM Narrative 12/03/2018 1:38 [...] Electronically signed by: Darvin Noyola [facility]([phone]), at 12/03/2018 1:33 PM Ac SERRANO IMG DX ORDERABLES documented in this encounter Visit Diagnoses Not on filedocumented in this encounter Care Teams Medical Services Manager Relationship Specialty Start Date End Date Unknown None PCP - General 08/04/10 01/16/19 documented as of this encounter
--- OUTSIDE RECORDS SUMMARY | 2024-08-29 10:31 | XMS_ITS | Encounter Summary ---
Author Organization [facility] [place] [address] Care Team Providers Care Him Analyst Name Role Phone Yoel Artis APRN Primary Care Provider [phone] Encounter Details Date Type Department Care Team (Late st Contact Info) Description 12/23/2022 8:20 AM EDT - 12/23/2022 11:59 PM EDT Hospital Encounter [facility] Lab [address] [place] [address] Yoel Artis APRN [address] [place] [address] Discharge Disposition: Home Social History Tobacco Use [...] AM EST Office Visit Cardiology at [address] [phone] Mushtaq Murphy APRN documented as of this encounter Procedures Procedure Name Priority Date/Time Associated Diagnosis Comments PSA SCREEN Routine 12/23/2022 8:43 AM EDT documented in this encounter Results * (ABNORMAL) PSA Screen (12/23/2022 8:43 AM EDT) PSA Screen 4.37(H) 0.00 - 4.00 ng/mL [facility] Comment: PLEASE NOTE: The above [...] Artis APRN CHEMISTRY ORDERABLES Performing Organization Address City/State/[facility] Co de Phone Number [facility] [place] [address] documented in this encounter Visit Diagnoses Not on filedocumented in this encounter Care Teams Him Analyst Relationship Specialty Start Date End Date Yoel Artis APRN [address] [place] [address] PCP - General Internal Medicine 11/18/22 07/29/24 documented as of this encounter
--- OUTSIDE RECORDS SUMMARY | 2024-08-29 10:31 | XMS_ITS | Encounter Summary ---
Author Organization [facility] Address [facility] [place] [address] Care Team Providers Care Iron Worker Foreman Name Role Phone Yoel Artis FREDRICK Primary Care Provider [phone] Encounter Details Date Type Department Care Team (Late st Contact Info) Description 07/29/2024 Notes [place] [phone] Ivan Hernandez MD [facility] [address] Social History Tobacco Use Types Packs/Day Years Used Date Smoking Tobacco: Former Cigarettes Smokeless Tobacco: Never Alcohol Use Standard Drinks/Week Comments Not Currently 0 (1 standard drink = 0.6 oz pur e alcohol) [facility] Utilities Answer Date Recorded In the past 12 months has e [employer], gas, oil, or water [employer] threatened to shut off services in your [...] in a mcfp (including now)? No 07/30/2024 IPV Inpatient Questions [...] 9:50 AM Hospital to which patient presented: [facility] If Hospital to which patient presented= [facility]: ED Walk In Medical History (prior to [...] Unfractionated Heparin Plan STEMI Alert called: Yes House Calls Nurse Practitioner Activated by: Rib Knitter Initial Disposition: Admit House Calls Nurse Practitioner documented in this encounter Plan of Treatment Upcoming Encounters Date Type Department Care Team (Late st Contact Info) Description 10/01/2024 10:00 AM EST Office Visit Cardiology at [address] [phone] Mushtaq Murphy APRN documented as of this encounter Visit Diagnoses Not on filedocumented in this encounter Care Teams Iron Worker Foreman Relationship Specialty Start Date End Date Yoel Artis APRN [address] [place] [address] PCP - General Internal Medicine 11/18/22 07/29/24 documented as of this encounter
--- OUTSIDE RECORDS SUMMARY | 2024-08-29 10:31 | XMS_ITS | Encounter Summary ---
Author Organization [facility] Address [facility] [address] Care Team Providers Care Vinyl Flooring Installer Name Role Phone Unknown Primary Care Provider Unavailabl e Encounter Details Date Type Department Care Team (Late st Contact Info) Description 01/13/2019 9:05 PM EDT Ancillary Procedure Radiology Library at [facility] [place] [phone] Sunny Aviles MD [facility] [place] [address] Social History Tobacco Use Types Packs/Day Years [...] AM EST Office Visit Cardiology at [address] [place] [phone] Mushtaq Murphy, INTERIOR DESIGN INSTRUCTOR documented as of this encounter Procedures Procedure [...] Aviles MD IMG FILM LIBRARY ORDERABLES [place], [place] documented in this encounter Visit Diagnoses Not on filedocumented in this encounter Care Teams Vinyl Flooring Installer Relationship Specialty Start Date End Date Unknown None PCP - General 08/04/10 01/16/19 documented as of this encounter
--- OUTSIDE RECORDS SUMMARY | 2024-08-29 10:31 | XMS_ITS | Encounter Summary ---
[place] [address] Care Team Providers Care Emission Technician Name Role Phone Yoel Artis APRN Primary Care Provider [phone] Reason for Referral * Consultation (Routine) - Closed Specialty Diagnoses / Procedures Referred By Theodore muro Referred To Contact Urology Diagnoses Raised prostate specific antigen PERSISTENTLY MILDLY ELEVATED PSA, URINARY FREQ Yoel Artis APRN [address] [place] [address] [facility] [place] [address] Referral ID Status Reason Start Date Expiration Date V isits Requested Visits Authorized [id number] Closed Consult, Test & Treat PCP Updated and/or Approved 07/30/2023 07/29/2024 6 6 Encounter Details Date Type Department Care Team (Late st Contact Info) Description 07/30/2023 Transcribe Orders eDH Incoming Referrals [phone] Yoel Artis APRN [address] [place] [address] Raised prostate specific antigen Social [...] 10:00 AM EST Office Visit Cardiology at [address] [address] Mushtaq Murphy APRN Scheduled Referrals Name Type Priority Associated Diagnoses Orde r Schedule Referral to Urology Outpatient Referral Routine Raised prostate specific antigen Ordered: 07/30/2023 documented as of this encounter Visit Diagnoses Diagnosis Raised prostate specific antigen Elevated prostate specific antigen (PSA) documented in this encounter Care Teams Emission Technician Relationship Specialty Start Date End Date Yoel Artis APRN [address] [place] [address] PCP - General Internal Medicine 11/18/22 07/29/24 documented as of this encounter
--- OUTSIDE RECORDS SUMMARY | 2024-08-29 10:31 | XMS_ITS | Encounter Summary ---
Author Organization [facility] [place] [address] Care Team Providers Care Precast Concrete Products Installer Name Role Phone Yoel Artis FREDRICK Primary Care Provider [phone] Encounter Details Date Type Department Care Team (Late st Contact Info) Description 01/16/2024 5:46 PM EDT - 01/16/2024 11:59 PM EDT Hospital Encounter [facility] [address] [place] [address] Chaparro Montana MD [address] [place] [address] Discharge Disposition: Home Social History Tobacco Use [...] evening. 04/17/2023 08/04/2024 nitroGLYcerin (NITROLINGUAL) 400 mcg/spray [place], Non-AerosolIndications:P roctalgia fugax,Fecal smearing,Constipation, unspecified constipation type 1 spray to anus for proctalgia fugax as needed, not to exceed once daily 12 g 06/01/2023 08/04/2024 documented as of this encounter Plan of Treatment Upcoming Encounters Date Type Department Care Team (Late st Contact Info) Description 10/01/2024 10:00 AM EST Office Visit Cardiology at [address] [address] Mushtaq Murphy APRN documented as of this encounter Procedures Procedure Name Priority Date/Time Associated Diagnosis Comments URINE CULTURE Routine 01/16/2024 4:00 PM EDT documented in this encounter Results * Urine culture (01/16/2024 4:00 PM EDT) Urine Culture No growth (Less than 1,000 cfu/ml). [facility] Urine 01/16/2024 4:00 PM EDT 01/16/2024 10:36 PM EDT Narrative Resulting Agency Comment Spec In Lab Chaparro Montana MD MICROBIOLOGY - [facility] ORDERABLES [facility] [place] [address] documented in this encounter Visit Diagnoses Not on filedocumented in this encounter Care Teams Precast Concrete Products Installer Relationship Specialty Start Date End Date Yoel Artis APRN [address] [place] [address] PCP - General Internal Medicine 11/18/22 07/29/24 documented as of this encounter
--- OUTSIDE RECORDS SUMMARY | 2024-08-29 10:31 | XMS_ITS | Encounter Summary ---
Author Organization [facility] [place] [address] Care Team Providers Care Multiple Drill Operator Name Role Phone Anibal Mtz MD Primary Care Provider [phone] Encounter Details Date Type Department Care Team (Late st Contact Info) Description 11/08/2022 Interpretation Only [address] [phone] Eve Frost MD [address] [place] [phone] Social History Tobacco Use Types Packs/Day Years [...] AM EST Office Visit Cardiology at [address] [address] Mushtaq Murphy APRN documented as of this encounter Procedures Procedure Name Priority Date/Time Associated Diagnosis Comments XR CHEST PA AND LATERAL STAT 11/08/2022 10:34 AM EST documented in this encounter Results * XR Chest PA & Lateral (Generic) (11/08/2022 10:34 AM EST) PT CLASS E RAD ADMITDTTM RAD PT RAD INFO [id number]^C HANDER^SUNEE R RAD EXAM DESC XCXR2^XR CHEST [...] who have questions please contact the health human services care specialist that requested your imaging first. ? Electronically signed by: Alejandro Tenorio MD, [facility] ([phone]), at 11/08/2022 10:37 AM Narrative 11/08/2022 10:37 [...] patients who have questions please contactthe health human services care specialist that requested your imaging first. Eve Frost MD IMG DX ORDERABLES documented in this encounter Visit Diagnoses Not on filedocumented in this encounter Care Teams Multiple Drill Operator Relationship Specialty Start Date End Date Anibal Mtz MD [address] [place] [address] PCP - General Family Medicine 01/17/19 11/17/22 documented as of this encounter
--- OUTSIDE RECORDS SUMMARY | 2024-08-29 10:31 | XMS_ITS | Encounter Summary ---
[place] [address] Care Team Providers Care Laboratory Equipment Cleaner Name Role Phone Alexia Mtz STOCKROOM CLERK Primary Care Provider [phone] Encounter Details Date Type Department Care Team (Late st Contact Info) Description 07/29/2024 External Results [place] [phone] Social History Tobacco Use Types Packs/Day Years Used Date Smoking Tobacco: Former Cigarettes Smokeless Tobacco: Never Alcohol Use Standard Drinks/Week Comments Not Currently 0 (1 standard drink = 0.6 oz pur e alcohol) [facility] Utilities Answer Date Recorded In [...] 10:00 AM EST Office Visit Cardiology at [address] [address] Mushtaq Murphy APRN documented as of this encounter Procedures Procedure Name Priority Date/Time Associated Diagnosis Comments MISC EXTERNAL CARDIOLOGY RESULT Routine 07/29/2024 10:13 AM EST documented in this encounter Results * External Cardiology Result (07/29/2024 10:13 AM EST) Anatomical Region Laterality Modality Other Historical Provider EXTERNAL CARDIOLO GY RESULT documented in this encounter Visit Diagnoses Not on filedocumented in this encounter Care Teams Laboratory Equipment Cleaner Relationship Specialty Start Date End Date Alexia Mtz APRN [address] [place] [address] PCP - General Family Medicine 07/30/24 documented as of this encounter
--- OUTSIDE RECORDS SUMMARY | 2024-08-29 10:31 | XMS_ITS | Encounter Summary ---
Author Organization [facility] [place] [address] Care Team Providers Care Drop Wirer Name Role Phone Yoel Artis APRN Primary Care Provider Encounter Details Date Type Department Care Team (Late st Contact Info) Description 03/01/2023 9:30 AM EDT - 03/01/2023 11:59 PM EDT Hospital Encounter [facility] Lab [address] [place] [address] Yoel Artis APRN [address] [place] [address] Discharge Disposition: Home Social History Tobacco Use [...] AM EST Office Visit Cardiology at [address] [address] Mushtaq Murphy APRN documented as of this encounter Procedures Procedure Name Priority Date/Time Associated Diagnosis Comments PSA (ULTRASENSITIVE) Routine 03/01/2023 9:38 AM EDT documented in this encounter Results * (ABNORMAL) PSA (Ultrasensitive) (03/01/2023 9:38 AM EDT) Prostate Specific Antigen (Ultrasensitive) 5.09(H) 0.00 - 4.00 ng/mL [facility] Comment: PLEASE NOTE: The above [...] In Lab Yoel Artis APRN CHEMISTRY ORDERABLES [facility] [place] [place] [address] documented in this encounter Visit Diagnoses Not on filedocumented in this encounter Care Teams Drop Wirer Relationship Specialty Start Date End Date Yoel Artis APRN [address] [place] [address] PCP - General Internal Medicine 11/18/22 07/29/24 documented as of this encounter
--- OUTSIDE RECORDS SUMMARY | 2024-08-29 10:31 | XMS_ITS | Encounter Summary ---
Author Organization [facility] [place] [address] Care Team Providers Care Screw Machine Adjuster Automatic Name Role Phone Yoel Artis Ute ALCALA Primary Care Provider [phone] Reason for Visit * Auth/Cert (Routine) Specialty Diagnoses / Procedures Referred By Conteleazar t Referred To Contact Diagnoses Anal spasm Fecal smearing Constipation, unspecified Rectal pain, fecal smearing Procedures PRO COLONOSCOPY, DIAGNOSTIC PRO COLONOSCOPY, BIOPSY PRO COLONOSCOPY, REMV LESN, SNARE COLONOSCOPY, DIAGNOSTIC (WRVU 3.26) Brandan Mcgovern MD [facility] [place] [address] [facility] Referral ID Status Reason Start Date Expiration Date Visits Re quested Visits Authorized [id number] 1 1 Encounter Details Date Type Department Care Team (Late st Contact Info) Description 08/30/2023 11:00 AM EST - 08/30/2023 12:00 PM EST Surgery [place] [address] Brandan Mcgovern MD [facility] [place] [address] COLONOSCOPY, POLYPECTOMY, REMOVAL LESION BY SNARE (WRVU [...] occurs, please contact your Doctor. Please call [phone] before 8pm Mon-Fri with problems, questions or concerns. If you call after 8pm or on weekends, call the Hospital at [phone] and ask to speak to the Room Service Manager manager registration and the operator specialist communications will contact that person for you. When should you call for help? Call [phone] anytime you think you may need emergency [...] any problems. Where can you learn more? [facility] View your After Visit Summary and more online at [email or web address] If you would like to provide feedback about your hospital experience, please call the Office of Patient and Family Relations at . If you have received this After Visit Summary in error, please immediately return it in person to the department, or notify the [facility] Privacy Office by calling toll free at between the hours of 8AM and 5PM to arrange for our retrieval of the documents at no cost to you. Content Version: 12.2 ?? [id number] [employer]. Care instructions adapted under license by [facility]. If you have questions about a medical condition or this instruction, always ask your healthcare professional. [employer] disclaims any warranty or liability for your [...] evening. 04/17/2023 08/04/2024 nitroGLYcerin (NITROLINGUAL) 400 mcg/spray [place], Non-AerosolIndications:P roctalgia fugax,Fecal smearing,Constipation, unspecified constipation type [...] AM EST Office Visit Cardiology at [address] [address] Mushtaq Murphy APRN documented as of this encounter Procedures Procedure Name Priority Date/Time Associated Diagnosis Comments SPECIMEN TO PATHOLOGY Routine 08/30/2023 11:23 AM EST SURGICAL PATHOLOGY REPORT Routine 08/30/2023 11:21 AM EST COLONOSCOPY Routine 08/30/2023 10:57 AM EST Colonoscopy, Remv Lesn, Snare ([id number]) 08/30/2023 10:44 AM EST Proctalgia fugax Fecal smearing Constipation, unspecified constipation type documented in this encounter Results * Specimen to Pathology (08/30/2023 11:23 AM EST) AP Specimen 08/30/2023 11:2 3 AM EST 08/30/2023 11:23 AM EST Narrative [facility] - 08/30/2023 11:23 AM EST Specimen requisition ordered. ??Separate Pathology report to follow Brandan Mcgovern MD PATHOLOGY/CYTOLOGY O JOSH Performing Organization Address [facility]/ZIP Co de Phone Number [facility] [place] [address] * Surgical Pathology Report (08/30/2023 11:21 AM EST) Final Diagnosis [id number] ? Location: 4T; EA12; A The signing pathologist has (i) examined the relevant preparation(s) for the specimen(s) and (ii) rendered or confirmed the diagnosis(es). . ?Surgical Pathology DIAGNOSIS A - Sigmoid colon polyp, resection (Multiple): - ??Tubular adenoma. CR-PX Electronically signed by: ?Blake ORTEGA PhD, Yulia Verified: ??09/08/2023 14:48 ??Pathologist Performed at: ??-[facility] Dept. of Pathology, [place] [address] Strategic Consultant: Fercho Chan MD, AP, ??CLIA Certificate: [id number] SPECIMEN(S) SUBMITTED A - Sigmoid colon polyp, resection (Multiple) CLINICAL INFORMATION 73-year-old male, history of rectal pain SPECIMEN PROCESSING A - Labeled/Fixativ e: Sigmoid colon polyp, formalin. Quantity/Size: Single, 0.8 cm. Tissue Description: Soft, candelaria tissue. Sections/Proces sing: Submitted in toto ??in 1 cassette labeled A1. ??sdy 09/08/2023 2:48 PM EST [facility] GI Biopsy 08/30/2023 11:2 1 AM EST 08/30/2023 11:21 AM EST Brandan Mcgovern MD PATHOLOGY/CYTOLOGY O JOSH [facility] [place] [address] [place] [address] * COLONOSCOPY (08/30/2023 10:57 AM EST) [facility] COLONOSCOPY [facility] Endoscopy Procedure Date: 08/30/2023 10:57 AM ? Patient Name: Korey Montoya ? Date of : 1950 ? Age: 73 ? Order #: [id number] ? Instrument Name: [id number] ? Procedure: ? Colonoscopy Indications: ? Rectal [...] preparation was evaluated ? using the BBPS ([facility] Bowel ? Preparation Scale) with scores of: [...] RN) documented in this encounter Care Teams Screw Machine Adjuster Automatic Relationship Specialty Start Date End Date Yoel Artis, FREDRICK [address] [place] [address] PCP - General Internal Medicine 11/18/22 07/29/24 documented as of this encounter
--- OUTSIDE RECORDS SUMMARY | 2024-08-29 10:31 | XMS_ITS | Encounter Summary ---
[place] [address] Care Team Providers Care Mica Plate Layer Hand Name Role Phone Yoel Artis FREDRICK Primary Care Provider [phone] Encounter Details Date Type Department Care Team (Late st Contact Info) Description 07/28/2024 Interpretation Only [address] [phone] Quinten Coffey MD [address] [place] [address] Social History Tobacco Use Types Packs/Day Years [...] AM EST Office Visit Cardiology at [address] [address] Mushtaq Murphy APRN documented as of this encounter Procedures Procedure Name Priority Date/Time Associated Diagnosis Comments XR CHEST ONE VIEW STAT 07/28/2024 10: 22 AM EST documented in this encounter Results * XR Chest One View (07/28/2024 10:22 AM EST) PT CLASS E RAD ADMITDTTM [id number] RAD PT RAD INFO [id number]^Alexx ^Quinten RAD EXAM DESC XCXR1^XR Chest 1 [...] who have questions please contact the health senior care provider that requested your imaging first. ? Electronically signed by: Darvin Noyola, [facility] ([phone]), at 07/28/2024 11:18 AM Narrative 07/28/2024 11:18 AM EST EXAMINATION: XR [...] patients who have questions please contactthe health senior care provider that requested your imaging first. Quinten Coffey MD IMG DX ORDERABLES documented in this encounter Visit Diagnoses Not on filedocumented in this encounter Care Teams Mica Plate Layer Hand Relationship Specialty Start Date End Date Yoel Artis APRN [address] [place] [address] PCP - General Internal Medicine 11/18/22 07/29/24 documented as of this encounter
--- OUTSIDE RECORDS SUMMARY | 2024-08-29 10:31 | XMS_ITS | Encounter Summary ---
Author Organization [facility] Address [facility] [place] [address] Care Team Providers Care Rejected Items Clerk Name Role Phone Yoel Artis Ute ALCALA Primary Care Provider [phone] Reason for Visit * Auth/Cert (Routine) Specialty Diagnoses / Procedures Referred By Conteleazar t Referred To Contact Diagnoses Anal spasm Fecal smearing Constipation, unspecified Rectal pain, fecal smearing Procedures PRO COLONOSCOPY, DIAGNOSTIC PRO COLONOSCOPY, BIOPSY PRO COLONOSCOPY, REMV LESN, SNARE COLONOSCOPY, DIAGNOSTIC (WRVU 3.26) Brandan Mcgovern MD [facility] [place] [address] [facility] Referral ID Status Reason Start Date Expiration Date Visits Re quested Visits Authorized [id number] 1 1 Encounter Details Date Type Department Care Team (Latest Contact Info) Description 08/30/2023 10:09 AM EST - 08/30/2023 12:19 PM EST Hospital Encounter [place] [address] Brandan Mcgovern MD [facility] [place] [address] Discharge Disposition: Home Social History Tobacco Use [...] occurs, please contact your Doctor. Please call [phone] before 8pm Mon-Fri with problems, questions or concerns. If you call after 8pm or on weekends, call the Hospital at [phone] and ask to speak to the Litigation Services Manager transonic engineer and the prototype machine operator will contact that person for you. When should you call for help? Call [phone] anytime you think you may need emergency [...] any problems. Where can you learn more? [facility] View your After Visit Summary and more online at [email or web address] If you would like to provide feedback about your hospital experience, please call the Office of Patient and Family Relations at . If you have received this After Visit Summary in error, please immediately return it in person to the department, or notify the [facility] Privacy Office by calling toll free at between the hours of 8AM and 5PM to arrange for our retrieval of the documents at no cost to you. Content Version: 12.2 ?? [id number] [employer]. Care instructions adapted under license by [facility]. If you have questions about a medical condition or this instruction, always ask your healthcare professional. [employer] disclaims any warranty or liability for your [...] evening. 04/17/2023 08/04/2024 nitroGLYcerin (NITROLINGUAL) 400 mcg/spray [place], Non-AerosolIndications:P roctalgia fugax,Fecal smearing,Constipation, unspecified constipation type [...] AM EST Office Visit Cardiology at [address] [address] Mushtaq Murphy, FREDRICK documented as of this encounter Procedures Procedure Name Priority Date/Time Associated Diagnosis Comments SPECIMEN TO PATHOLOGY Routine 08/30/2023 11:23 AM EST SURGICAL PATHOLOGY REPORT Routine 08/30/2023 11:21 AM EST COLONOSCOPY Routine 08/30/2023 10:57 AM EST Colonoscopy, Remv Lesn, Snare ([id number]) 08/30/2023 10:44 AM EST Proctalgia fugax Fecal smearing Constipation, unspecified constipation type documented in this encounter Results * Specimen to Pathology (08/30/2023 11:23 AM EST) AP Specimen 08/30/2023 11:2 3 AM EST 08/30/2023 11:23 AM EST Narrative [facility] - 08/30/2023 11:23 AM EST Specimen requisition ordered. ??Separate Pathology report to follow Brandan Mcgovern MD PATHOLOGY/CYTOLOGY O JOSH Performing Organization Address [facility]/ZIP Co de Phone Number [facility] [place] [phone] * Surgical Pathology Report (08/30/2023 11:21 AM EST) Final Diagnosis [id number] ? Location: 4T; EA12; A The signing pathologist has (i) examined the relevant preparation(s) for the specimen(s) and (ii) rendered or confirmed the diagnosis(es). . ?Surgical Pathology DIAGNOSIS A - Sigmoid colon polyp, resection (Multiple): - ??Tubular adenoma. CR-PX Electronically signed by: ?Blake ORTEGA PhD, Yulia Verified: ??09/08/2023 14:48 ??Pathologist Performed at: ??-[facility] Dept. of Pathology, [place] [address] Sample Color Maker: Fercho Chan MD, FCAP, ??CLIA Certificate: [id number] SPECIMEN(S) SUBMITTED A - Sigmoid colon polyp, resection (Multiple) CLINICAL INFORMATION 73-year-old male, history of rectal pain SPECIMEN PROCESSING A - Labeled/Fixativ e: Sigmoid colon polyp, formalin. Quantity/Size: Single, 0.8 cm. Tissue Description: Soft, candelaria tissue. Sections/Proces sing: Submitted in toto ??in 1 cassette labeled A1. ??sdy 09/08/2023 2:48 PM EST [facility] GI Biopsy 08/30/2023 11:2 1 AM EST 08/30/2023 11:21 AM EST Brandan Mcgovern MD PATHOLOGY/CYTOLOGY O JOSH Performing Organization Address City/[facility]/ZIP Co de Phone Number [facility] [place] [address] [facility] [place] [address] * COLONOSCOPY (08/30/2023 10:57 AM EST) COLONOSCOPY [facility] Endoscopy Procedure Date: 08/30/2023 10:57 AM ? Patient Name: Korey Montoya ? Date of : 1950 ? Age: 73 ? Order #: [id number] ? Instrument Name: [id number]- [id number] ? Procedure: ? Colonoscopy Indications: ? Rectal [...] preparation was evaluated ? using the BBPS ([facility] Bowel ? Preparation Scale) with scores of: [...] RN) documented in this encounter Care Teams Rejected Items Clerk Relationship Specialty Start Date End Date Yoel Artis APRN [address] [place] [address] PCP - General Internal Medicine 11/18/22 07/29/24 documented as of this encounter
--- OUTSIDE RECORDS SUMMARY | 2024-08-31 10:07 | XMS_ITS | Clinical Summary ---
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 Primary Care Provider [phone] Allergies No known active allergies Medications Medication [...] Description 07/31/2024 4:45 PM EST Anesthesia Event [employer] [place] [address] Venkatesh Mauricio MD 07/31/2024 4:30 PM EST - 07/31/2024 5:30 PM EST Surgery [employer] [place] [address] Maldonado Luis MD CARDIAC CATHETERIZATION 07/29/2024 6:32 PM EST - 07/29/2024 11:59 PM EST Hospital Encounter [facility] at [address] [phone] Arvin Becerra MD Discharge Disposition: Home 07/29/2024 12:00 PM EST - 07/29/2024 12:54 PM EST Surgery [employer] [place] [address] Vahe Marvin MD CARDIAC CATHETERIZATION 07/29/2024 11:45 AM EST - 08/04/2024 5:00 PM EST Hospital [place] [address] Vahe Marvin MD Dadekian, Gregory A, MD Welch, Terrence D, MD Vinod, Poornima, MD Kostojchin, Anastas, MD Kussaga, Frank M, MD ST elevation myocardial infarction involving left anterior descending (LAD) coronary artery; HFrEF (heart failure with reduced ejection fraction) Discharge Disposition: Home 07/29/2024 Orders Only [employer] [place] [address] Susannah Watts PA 07/29/2024 Interpretation Only [address] [phone] Deondre Ferrera MD 07/29/2024 [place] [address] Ivan Hernandez MD 07/29/2024 External [place] [address] 07/28/2024 Interpretation Only [address] [address] Quinten Coffey MD 06/25/2024 Lab [place] [address] Aubrey Cali MD Pyuria from [...] drink = 0.6 oz pur e alcohol) [facility] Utilities Answer Date Recorded In the past 12 months has th e [employer], gas, oil, or water [employer] threatened to shut off services in your [...] were you homeless or living in a care home (including now)? No 07/30/2024 IPV Inpatient [...] AM EST Office Visit Cardiology at [address] [phone] Mushtaq Murphy, FREDRICK Health Maintenance Due Date Last Done Comments CT Colonography 1950 FIT DNA 1950 FIT 1950 Sigmoidoscopy 1950 Hepatitis C Screening 1970 Pneumoccocal Vaccine: 65+ (1 of 2 - PCV) 1971 Tetanus/Diphtheria/Pertussis Vaccines (1 - Tdap) 1971 Zoster [...] 1:08 AM EST HEPATIC FUNCTION PANEL Routine 4 1:08 AM EST POC, GLUCOSE Routine 07/30/2024 [...] - 9.50 x10(3)/mc L 08/04/2024 6:39 AM [facility] Red Blood Cell 4.28(L) 4.58 - 5.54 x10(6)/mc L 08/04/2024 6:39 AM [facility] Hemoglobin 11.6(L) 13.7 - 16.5 g/dL 08/04/2024 6:39 AM [facility] Hematocrit 34.8(L) 40.5 - 48.5 % 08/04/2024 6:39 AM [facility] Mean Cell Volume 81.3(L) 82.9 - 93.1 fL 08/04/2024 6:39 AM [facility] Mean Cell Hemoglobin 27.1(L) 27.5 - 32.1 pg 08/04/2024 6:39 AM [facility] Mean Cell Hemoglobin Concentration 33.3 32.0 - 35.7 g/dL 08/04/2024 6:39 AM [facility] Platelet 178 145 - 357 x10(3)/mc L 08/04/2024 6:39 AM [facility] Mean Platelet Volume 10.6 7.6 - 12.9 fL 08/04/2024 6:39 AM [facility] RDW Standard Deviation 42.0 36.0 - 45.0 fL 08/04/2024 6:39 AM [facility] RDW coefficient of variation 14.3(H) 11.4 - 13.8 % 08/04/2024 6:39 AM [facility] NRBC% auto 0.0 % 08/04/2024 6:39 AM [facility] NRBC Absolute <0.01 <0.01 x10(3)/mc L 08/04/2024 6:39 AM [facility] Neutrophil % 72.1 % 08/04/2024 6:39 AM [facility] Neutrophil Absolute (ANC) - Automated 5.24 1.70 - 6.10 x10(3)/mc L 08/04/2024 6:39 AM [facility] Lymph % 16.8 % 08/04/2024 6:39 AM [facility] Lymph Absolute 1.22 0.90 - 3.20 x10(3)/mc L 08/04/2024 6:39 AM [facility] Monocyte % 8.5 % 08/04/2024 6:39 AM [facility] Monocyte Absolute 0.62 0.30 - 0.90 x10(3)/mc L 08/04/2024 6:39 AM [facility] Eos % 1.9 % 08/04/2024 6:39 AM [facility] Eos Absolute 0.14 0.00 - 0.40 x10(3)/mc L 08/04/2024 6:39 AM [facility] Basophil % 0.4 % 08/04/2024 6:39 AM [facility] Baso Absolute <0.04 0.00 - 0.10 x10(3)/mc L 08/04/2024 6:39 AM [facility] Immature Gran % 0.3 % 6:39 AM [facility] Immature Gran Absolute <0.04 0.00 - 0.04 x10(3)/mc L 08/04/2024 6:39 AM [facility] Blood VENOUS BLOOD SPECIMEN / Unknown Venipuncture / Unknown 08/04/2024 6:08 AM EST 08/04/2024 6:19 AM EST Bridgette Stauffer MD HEMATOLOGY ORDERABLE S Performing Organization Address City/[facility]/ZIP Co de Phone Number [facility] [place] [address] * Magnesium (08/04/2024 6:08 AM EST) Only the most recent of8 resultswithin the time period is included. Magnesium 0.85 0.69 - 1.07 mMol/L 08/04/2024 7:07 AM [facility] Blood VENOUS BLOOD SPECIMEN / Unknown Venipuncture / Unknown 08/04/2024 6:08 AM EST 08/04/2024 6:19 AM EST Bridgette Stauffer MD CHEMISTRY ORDERABLES Performing Organization Address [facility] Co de Phone Number [facility] [place] [address] * Basic Metabolic Panel (08/04/2024 6:08 AM EST) Only the most recent of7 resultswithin the time period is included. Glucose 93 65 - 199 mg/dL 08/04/2024 7:07 AM [facility] Comment:Glucose Concentratio n >=200 mg/dL plus symptoms is consistent with Diabetes Mellitus. Blood Urea Nitrogen 14 10 - 20 mg/dL 08/04/2024 7:07 AM [facility] Creatinine 1.07 0.80 - 1.50 mg/dL 08/04/2024 7:07 AM [facility] Sodium 138 135 - 145 mMol/L 08/04/2024 7:07 AM [facility] Potassium 4.3 3.5 - 5.0 mMol/L 08/04/2024 7:07 AM [facility] Chloride 107 98 - 107 mMol/L 08/04/2024 7:07 AM [facility] Carbon Dioxide 23 22 - 31 mMol/L 08/04/2024 7:07 AM [facility] Anion Gap 8 5 - 15 mMol/L 08/04/2024 7:07 AM EST [facility] Calcium 8.5 8.5 - 10.5 mg/dL 08/04/2024 7:07 AM EST [facility] Est Glomerular Filtration Rate - Male 74 mL/min/1. 73 m?? 08/04/2024 7:07 AM EST [facility] Comment: This patient's estimated [...] Stauffer MD CHEMISTRY ORDERABLES Performing Organization Address City/[facility]/ZIP Co de Phone Number [facility] [place] [address] * POC, GLUCOSE (08/02/2024 7:47 AM EST) Only the most recent of16 resultswithin the time period is included. [facility] Signature Glucometer, POC 89 65 - 199 mg/dL 08/02/2024 7:47 AM EST [facility] Comment:Supplemental ranges: <140 mg/dL before meals <180 mg/dL all other times of the day. Blood CAPILLARY BLOOD / Unknown 08/02/2024 7:47 AM EST 08/02/2024 7:47 AM EST Arnel Parker MD POINT OF CARE TEST O RDERABLES Performing Organization Address City/[facility]/ZIP Co de Phone Number [facility] [place] [address] * Scan Doc: Telemetry Strips (08/02/2024 7:37 [...] - 5.0 mMol/L 08/01/2024 9:21 PM EST [facility] Blood VENOUS BLOOD SPECIMEN / Unknown Venipuncture / Unknown 08/01/2024 8:39 PM EST 08/01/2024 8:51 PM EST Jay Silverio MD CHEMISTRY ORDERABL ES [facility] [place] [address] * (ABNORMAL) Cooximetry, POC (08/01/2024 10:45 AM EST) Only the most recent of2 resultswithin the time period is included. pO2, Coox 32 mmHg 08/01/2024 10:48 AM EST [facility] Hemoglobin, Coox 12.9(L) 13.7 - 16.5 g/dL 08/01/2024 10:48 AM EST [facility] Oxyhemoglobin, Coox 66.7 % 08/01/2024 10:48 AM EST [facility] Carboxyhemoglo bin, Coox 1.1 % 08/01/2024 10:48 AM EST [facility] Comment: Nonsmokers: 0.5-1.5% COHB ?? Smokers: Variable ??but usually less than 10% ?? Toxic: 20-30% COHB ?? Lethal: Greater than 60% COHB Methemoglobin, Coox 0.3 <=1.5 % 08/01/2024 10:48 AM EST [facility] Blood (Mixed Venous) 08/01/2024 10:45 AM EST 08/01/2024 10:48 AM EST Arnel Parker MD POINT OF CARE TEST O RDERABLES Performing Organization Address [facility]/State/[facility] Co de Phone Number [facility] [place] [address] * CARDIAC CATHETERIZATION (07/31/2024 5:53 PM EST) Only the most recent of2 resultswithin the time period is included. Anatomical Region Laterality Modality Other Narrative 08/01/2024 12:37 PM EST ?[facility] ? Cardiac Catheterization/Intervention Report ? Patient Name: MontoyaKorey. ? Procedure Date: 07/31/2024 ? A #: [id number] ? Primary Physician: Maldonado Luis ? Case #: [id number] ? File Name: [id number] ? Catheterization Order Number: [id number] ? [facility] ? Final Report [place], [place] ? Patient Name: ? Korey Montoya ?ID#: ?[id number] ? : ?1950 ? Procedure Date: ? [...] ? Comments: ?Impella removed from the right PERFORATOR OPERATOR with deployment of Perclose and ?Angioseal. [...] Procedure Note Maldonado Luis MD - 08/01/2024 [facility] Cardiac Catheterization/Intervention Report Patient Name: Korey Montoya Procedure Date: 07/31/2024 A #: [id number] Primary Physician: Maldonado Luis Case #: [id number] File Name: [id number] Catheterization Order Number: [id number] [facility] FinalReport [place], [place] Patient Name: Korey Montoya ID#:[id number] :1950 Procedure Date: July 31, 2024 Case [...] was designated as ASA Class IV. The [facility] clinical frailtyscale is 4: Vulnerable. Diagnostic [...] procedures. Comments: Impella removed from the right PERFORATOR OPERATOR with deployment of Perclose and Angioseal. [...] 7.48(H) 7.35 - 7.45 07/31/2024 8:30 AM [facility] PCO2, Arterial 29(L) 35 - 45 mmHg 07/31/2024 8:30 AM [facility] PO2, Arterial 71(L) 85 - 104 mmHg 07/31/2024 8:30 AM [facility] Bicarbonate, Arterial 20.6 20.0 - 26.0 mmol/L 07/31/2024 8:30 AM [facility] Base Excess, Arterial -3.0 -3.0 - 3.0 mmol/L 07/31/2024 8:30 AM [facility] Hemoglobin, Arterial 12.3(L) 13.7 - 16.5 g/dL 07/31/2024 8:30 AM [facility] Oxyhemoglobin, Arterial 94.4 94.0 - 97.0 % 07/31/2024 8:30 AM [facility] Carboxyhemoglobin , Arterial 0.7 % 07/31/2024 8:30 AM [facility] Comment: Nonsmokers: 0.5-1.5% COHB ?? Smokers: Variable ??but usually less than 10% ?? Toxic: 20-30% COHB ?? Lethal: Greater than 60% COHB Methemoglobin, Arterial 0.3 <=1.5 % 07/31/2024 8:30 AM [facility] Sodium, Arterial 138 135 - 145 mmol/L 07/31/2024 8:30 AM [facility] Potassium, Arterial 3.5 3.5 - 5.0 mmol/L 07/31/2024 8:30 AM [facility] Chloride, Arterial 109(H) 98 - 107 mmol/L 07/31/2024 8:30 AM [facility] Lactate, Arterial 0.8 0.5 - 2.2 mmol/L 07/31/2024 8:30 AM [facility] Fraction of Inspired Oxygen 21 % 07/31/2024 8:30 AM [facility] PF Ratio 338 Ratio 07/31/2024 8:30 AM [facility] Comment:PF ratio calculated using the non-temperature corrected pO2 result. IONIZED CALCIUM, ARTERIAL 1.08(L) 1.15 - 1.33 mmol/L 07/31/2024 8:30 AM [facility] Glucose, Arterial 86 65 - 199 mg/dL 07/31/2024 8:30 AM [facility] Comment:Glucose Concentratio n >=200 mg/dL plus symptoms is consistent with Diabetes Mellitus. Blood ARTERIAL BLOOD / Unknown 07/31/2024 8:29 AM EST 07/31/2024 8:30 AM EST Arnel Parker MD POINT OF CARE TEST O RDERABLES [facility] [place] [address] * (ABNORMAL) Hepatic Function Panel (07/31/2024 1:08 AM EST) Albumin 3.1(L) 3.2 - 5.2 g/dL 07/31/2024 1:46 AM [facility] Aspartate Aminotransferase 192(H) <=39 unit/L 07/31/2024 1:46 AM [facility] Alanine Aminotransferase 59(H) 0 - 55 unit/L 07/31/2024 1:46 AM [facility] Alkaline Phosphatase 46 40 - 130 unit/L 07/31/2024 1:46 AM [facility] Bilirubin, Total 0.4 <=1.3 mg/dL 07/31/2024 1:46 AM [facility] Bilirubin, Direct <0.2 0.0 - 0.3 mg/dL 07/31/2024 1:46 AM EST [facility] Protein, Total 5.0(L) 6.1 - 8.0 g/dL 07/31/2024 1:46 AM [facility] Blood VENOUS BLOOD SPECIMEN / Unknown Venipuncture / Unknown 07/31/2024 1:08 AM EST 07/31/2024 1:18 AM EST Arnel Parker MD CHEMISTRY ORDERABLES Performing Organization Address City/[facility]/ZIP Co de Phone Number [facility] [place] [address] * (ABNORMAL) Phosphorus (07/30/2024 3:08 PM EST) Only the most recent of3 resultswithin the time period is included. Phosphorus 2.1(L) 2.5 - 4.5 mg/dL 07/30/2024 3:58 PM EST [facility] Blood VENOUS BLOOD SPECIMEN / Unknown Venipuncture / Unknown 07/30/2024 3:08 PM EST 07/30/2024 3:12 PM EST Jay Silverio MD CHEMISTRY ORDERABL ES Performing Organization Address City/[facility]/ZIP Co de Phone Number [facility] [place] [address] * ECHO LMTD W CONTRAST W LMTD SPEC DOPP COLOR DOPP (07/30/2024 11:42 AM EST) Anatomical Region Laterality Modality Cardiac Other 07/30/2024 10:2 2 AM EST Narrative 07/30/2024 12:34 PM EST 1 [place] [address] ? Echocardiogram Report Name: KOREY MONTOYA ? Study Date: 07/30/2024 10:22 AMBP: 124/66 mmHg : 1950 ? Height: 168 cm ? Account: [id number] Age: 74 yrs ? Weight: 65 kg Gender: Male ?BSA: 1.7 m2 Ordering Physician: Jay Silverio MD Referring Physician: DEONDRE FERRERA Performed By: OMERO Millan Reason For Study: ST elevation myocardial infarction involving left anterior descending (LAD) coronary artery Interpreting Fellow: Ivan Hernandez. Exam Location: [facility]. Interpretation Summary Left ventricle is severely [...] Compared to the overnight study by the conference planner fellow the impella position is stable. 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 Procedure Limited - 60658. Image enhancement Definity was used for both [...] Note Kathleen Banda MD - 07/30/2024 1 [place] [address] Echocardiogram Report Name: KOREY MONTOYA Study Date: 410:22 AMBP: 124/66 mmHg : 1950 Height: 168 cm Account: [id number] Age: 74 yrs Weight: 65 kg Gender: Male BSA: 1.7 m2 Ordering Physician: Jay Silverio MD Referring Physician: DEONDRE FERRERA Performed By: OMERO Millan Reason For Study: ST elevation myocardial infarction involving leftanterior descending (LAD) coronary artery Interpreting Fellow: Ivan Hernandez. Exam Location: [facility]. Interpretation Summary Left ventricle is severely [...] Compared to the overnight study by the conference planner fellow the impella positionis stable. The global left ventricular systolic function has improvedpredominantly via recruitment outside the LAD territory which remains akinetic. Procedure Limited - 41923. Image enhancement Definity was used for both [...] 8,651(H) <=22 ng/L 07/30/2024 9:06 AM EST [facility] Comment: This patient's troponin [...] troponin value can be found in the [facility] Laboratory Test Catalog Troponin - [email or web address]/[email or web address]/[email or web address] Reference: [place] Definition of Myocardial Infarction. Journal of the [place] [employer] 2018;72:5312-0512 Blood VENOUS BLOOD SPECIMEN / Unknown Venipuncture / Unknown 07/30/2024 8:09 AM EST 07/30/2024 8:26 AM EST Jay Silverio MD CHEMISTRY ORDERABL ES Performing Organization Address City/State/[facility] Co de Phone Number [facility] [place] [address] * Echocardiogram Transthoracic (07/30/2024 1:41 AM EST) Anatomical Region Laterality Modality Cardiac Other 07/30/2024 1:41 AM EST Narrative 07/30/2024 8:23 AM EST [address] [place] [address] ? Echocardiogram Report Name: KOREY MONTOYA ? Study Date: 07/30/2024 01:41 AM : 1950 ? Height: 168 cm Age: 74 yrs ? Weight: 5.9 kg Gender: Male ?BSA: 0.63 m2 Performed By: Beatris Ching MD Reason For Study: STEMI, VT History: ASCVD, HTN, HLD Interpreting Fellow: Beatris Ching. Interpretation Summary This is a limited study performed by a fellow conference planner to evaluate for cardiogenic shock with impella [...] study available for comparison. Procedure Limited - 86785. Suboptimal quality. There is sinus bradycardia. Left [...] Note Kathleen Banda MD - 07/30/2024 1 [place] [address] Echocardiogram Report Name: KOREY MONTOYA Study Date: 07/30/2024 01:41AM : 1950 Height: 168 cm Age: 74 yrs Weight: 5.9 kg Gender: Male BSA: 0.63 m2 Performed By: Beatris Ching MD Reason For Study: STEMI, VT History: ASCVD, HTN, HLD Interpreting Fellow: Beatris Ching. Interpretation Summary This is a limited study performed by a fellow conference planner to evaluate forcardiogenic shock with impella in. [...] study available for comparison. Procedure Limited - 93765. Suboptimal quality. There is sinus bradycardia. Left [...] Peak E' [place]: 4.9 cm/sec TR max [place]: 269.5 cm/sec I WMSI = 2.56 % Normal = 0 SegmentsSize X - Cannot 1 - Normal 2 - 3 - Akinetic 4 - 1-2small Interpret Hypokinetic Dyskinetic 3-5moderate 5 - 6-14large Aneurysmal 15-16diffuse Unknown ECHO ORDERABLES * ABORH RECHECK (07/29/2024 6:43 PM EST) ABORH Recheck AB POSITIVE 07/29/2024 10:13 PM EST [facility] Blood VENOUS BLOOD SPECIMEN / Unknown Venipuncture / Unknown 07/29/2024 6:43 PM EST 07/29/2024 7:15 PM EST Jay Silverio MD BLOOD BANK LAB ORD ERABLES Performing Organization Address City/[facility]/ZIP Co de Phone Number [facility] [place] [place] [address] * Type and screen ([facility]MAGALIE[place] (07/29/2024 5:56 PM EST) Pathologist [facility] ABORH Type AB POSITIVE 07/29/2024 9:44 PM EST [facility] PATIENT HISTORY Not Found 07/29/2024 9:44 PM EST [facility] Expires at [id number] on: 08/01/2024 07/29/2024 9:44 PM EST [facility] ANTIBODY SCREEN AUTOMATED Negative 07/29/2024 9:44 PM EST [facility] T&S only valid at [facility] 07/29/2024 9:44 PM EST [facility] Blood VENOUS BLOOD SPECIMEN / Unknown Venipuncture / Unknown 07/29/2024 5:56 PM EST 07/29/2024 6:07 PM EST Narrative [facility] - 07/29/2024 9:44 PM EST This Type and Screen result is only valid at the [facility] Jay Silverio MD BLOOD BANK LAB ORD ERABLES Performing Organization Address City/[facility] Co de Phone Number [facility] [place] [place] [address] * EKG 12 Lead (07/29/2024 4:21 PM EST) Only the most recent of2 resultswithin the time period is included. Ventricular rate 72 BPM MUSE SYSTEM Atrial Rate 72 BPM MUSE SYSTEM P-R Interval 168 ms MUSE SYSTEM QRS Duration 82 ms MUSE SYSTEM Q-T Interval 392 ms MUSE SYSTEM QTC Calculated (Bezet) 429 ms MUSE SYSTEM Calculated P [place]jo 71 degrees MUSE SYSTEM Calculated R Ajo 77 degrees MUSE SYSTEM Calculated T Ajo 28 degrees MUSE SYSTEM INTERPRETATION Sinus rhythm [...] Silverio MD ECG ORDERABLES Performing Organization Address City/[facility]/ZIP Co de Phone Number MUSE SYSTEM * Blood culture (07/29/2024 4:08 PM EST) Only the most recent of2 resultswithin the time period is included. Blood Culture No growth at 120 hours 08/03/2024 5:01 PM EST [facility] Blood VENOUS BLOOD SPECIMEN / Unknown Venipuncture / Unknown 07/29/2024 4:08 PM EST 07/29/2024 4:15 PM EST Jay Silverio MD MICROBIOLOGY - BLO OD ORDERABLES Performing Organization Address City/[facility] Co de Phone Number [facility] [place] [address] * XR Chest One View (07/29/2024 2:30 PM EST) Only the most recent of3 resultswithin the time period is included. WORKSTATION ID [id number] DH RAD Anatomical Region Laterality Modality Chest [...] who have questions please contact the health anesthesiologist and critical care that requested your imaging first. ? Electronically signed by: Chris Candelaria MD, [facility] ([phone]), at 07/29/2024 3:21 PM Narrative 07/29/2024 3:21 [...] patients who have questions please contactthe health anesthesiologist and critical care that requested your imaging first. Electronically signed by: Chris Candelaria MD, [facility]([phone]), at 07/29/2024 3:21 PM Vahe Marvin MD IMG DX ORDERABLES * TSH [place] (07/29/2024 2:03 PM EST) Thyroid Stimulating Hormone 0.70 0.27 - 4.20 mcIU/mL 07/29/2024 2:52 PM EST [facility] Blood VENOUS BLOOD SPECIMEN / Unknown Venipuncture / Unknown 07/29/2024 2:03 PM EST 07/29/2024 2:14 PM EST Vahe Marvin MD CHEMISTRY ORDERABLES Performing Organization Address City/[facility]/ZIP Co de Phone Number [facility] [place] [address] * CRP, acute inflammation (07/29/2024 2:03 PM EST) C-Reactive Protein <3.0 <=4.9 mg/L 07/29/2024 2:52 PM EST [facility] Blood VENOUS BLOOD SPECIMEN / Unknown Venipuncture / Unknown 07/29/2024 2:03 PM EST 07/29/2024 2:14 PM EST Vahe Marvin MD CHEMISTRY ORDERABLES Performing Organization Address City/[facility]/ZIP Co de Phone Number [facility] [place] [address] * (ABNORMAL) APTT (07/29/2024 2:03 PM EST) Partial Thromboplastin Time >160(HHH) 25 - 37 sec 07/29/2024 2:56 PM EST [facility] Blood VENOUS BLOOD SPECIMEN / Unknown Venipuncture / Unknown 07/29/2024 2:03 PM EST 07/29/2024 2:13 PM EST Vahe Marvin MD HEMATOLOGY ORDERABLE S [facility] [place] [address] * (ABNORMAL) Prothrombin Time (07/29/2024 2:03 PM EST) Prothrombin Time 14.2(H) 9.4 - 12.5 sec 07/29/2024 2:56 PM EST [facility] International Normalization Ratio 1.3 <=4.9 07/29/2024 2:56 PM EST [facility] Comment: An INR < [...] EST Vahe Marvin MD HEMATOLOGY ORDERABLE S [facility] [place] [address] * Hemoglobin A1c (07/29/2024 2:03 PM EST) Pathologist [facility] Hemoglobin A1c 5.3 4.3 - 5.6 % 07/29/2024 2:41 PM EST [facility] Comment: Per ADA guidelines, [...] red blood cell turnover may not be business representative of glycemic control. Reference Interval: 4.3 - 5.6% 5.7 - 6.4%: Consistent with prediabetes >=6.5%: Consistent with diagnosis of diabetes mellitus Estimated Average Glucose 07/29/2024 2:41 PM EST [facility] Comment:Estimated Average Gl ucose not appropriate for patients over 70 years of age. Blood VENOUS BLOOD SPECIMEN / Unknown Venipuncture / Unknown 07/29/2024 2:03 PM EST 07/29/2024 2:14 PM EST [facility] LAB[facility]ATORY - 07/29/2024 2:41 PM EST Estimated average glucose (eAG) is calculated from the equation described in: Quinten DM, Rikki J, Reno R, et al. ??Translating the A1C assay into estimated average glucose values. ??Diabetes Care 2008:31(8):7620-9217. Additional resources are available on the ADA website (diabetes.org). Vahe Marvin MD CHEMISTRY ORDERABLES [facility] [place] [address] * Lipid Panel (Reflex Direct LDL) (07/29/2024 2:03 PM EST) [facility] Cholesterol, Total 133 mg/dL 07/29/2024 2:52 PM [facility] Comment: Desirable: < 200 mg/dL Borderline High: 200 - 239 mg/dL High: > or = 240 mg/dL Triglyceride 45 mg/dL 07/29/2024 2:52 PM [facility] Comment: Normal: <150 mg/dL Borderline High: 150-199 mg/dL High: 200-499 mg/dL Very High: > or =500 mg/dL HDL Cholesterol 58 mg/dL 4 2:52 PM [facility] Comment:Males: High Risk: <4 0 mg/dL LDL Cholesterol 64 mg/dL 4 2:52 PM [facility] Comment: Desirable: <100 mg/dL Above Desirable: 100-129 mg/dL Borderline High: 130-159 mg/dL High: 160-189 mg/dL Very High: > or =190 mg/dL Note: LDL calculation updated to the NIH LDL formula as of 04/15/2024 Non-HDL Cholesterol 75 mg/dL 07/29/2024 2:52 PM EST [facility] Comment: Desirable: <130 mg/dL Above Desirable: 130-159 mg/dL Borderline High: 160-189 mg/dL High: 190-219 mg/dL Very High: > or = 220 mg/dL Blood VENOUS BLOOD SPECIMEN / Unknown Venipuncture / Unknown 07/29/2024 2:03 PM EST 07/29/2024 2:14 PM EST [facility] LAB[facility] - 07/29/2024 2:52 PM EST It [...] ACC/AHA Guidelines (most recently Rolf et al. [employer] 06/15/22): * For individuals with atherosclerotic cardiovascular [...] artery disease) Vahe Marvin MD CHEMISTRY ORDERABLES [facility] [place] [address] * (ABNORMAL) Comprehensive metabolic panel (07/29/2024 2:03 PM EST) Glucose 243(H) 65 - 199 mg/dL 07/29/2024 3:11 PM EST [facility] Comment:Glucose Concentratio n >=200 mg/dL plus symptoms is consistent with Diabetes Mellitus. Blood Urea Nitrogen 13 10 - 20 mg/dL 07/29/2024 3:11 PM EST [facility] Creatinine 0.88 0.80 - 1.50 mg/dL 07/29/2024 3:11 PM EST [facility] Sodium 138 135 - 145 mMol/L 07/29/2024 3:11 PM EST [facility] Potassium 3.6 3.5 - 5.0 mMol/L 07/29/2024 3:11 PM EST [facility] Chloride 104 98 - 107 mMol/L 07/29/2024 3:11 PM EST [facility] Carbon Dioxide 19(L) 22 - 31 mMol/L 07/29/2024 3:11 PM EST [facility] Anion Gap 15 5 - 15 mMol/L 07/29/2024 3:11 PM EST [facility] Calcium 8.0(L) 8.5 - 10.5 mg/dL 07/29/2024 3:11 PM [facility] Protein, Total 6.0(L) 6.1 - 8.0 g/dL 07/29/2024 3:11 PM [facility] Albumin 3.6 3.2 - 5.2 g/dL 07/29/2024 3:11 PM [facility] Aspartate Aminotransferase 07/29/2024 3:11 PM [facility] Comment:Unable to report due to hemolysis. Alanine Aminotransferase 56(H) 0 - 55 unit/L 07/29/2024 3:11 PM [facility] Alkaline Phosphatase 58 40 - 130 unit/L 07/29/2024 3:11 PM [facility] Bilirubin, Total 0.5 <=1.3 mg/dL 07/29/2024 3:11 PM [facility] Est Glomerular Filtration Rate - Male 91 mL/min/1. 73 m?? 07/29/2024 3:11 PM [facility] Comment: This patient's estimated GFR [...] PM EST Vahe Marvin MD CHEMISTRY ORDERABLES [facility] [place] [address] * (ABNORMAL) Blood Gas, Venous POC (07/29/2024 2:01 PM EST) pH, Venous 7.30(L) 7.32 - 7.42 07/29/2024 2:02 PM [facility] PCO2, Venous 42 38 - 58 mmHg 07/29/2024 2:02 PM [facility] PO2, Venous 39 16 - 65 mmHg 07/29/2024 2:02 PM [facility] Bicarbonate, Venous 20.1(L) 22 - 31 mmol/L 07/29/2024 2:02 PM [facility] Base Excess, Venous -6.4(L) 1.9 - 4.5 mmol/L 07/29/2024 2:02 PM [facility] Hemoglobin, Venous 14.2 13.7 - 16.5 g/dL 07/29/2024 2:02 PM [facility] Oxyhemoglobin, Venous 69.3 % 07/29/2024 2:02 PM [facility] Carboxyhemoglobin , Venous 0.8 % 07/29/2024 2:02 PM [facility] Comment: Nonsmokers: 0.5-1.5% COHB ?? Smokers: Variable ??but usually less than 10% ?? Toxic: 20-30% COHB ?? Lethal: Greater than 60% COHB Methemoglobin, Venous 0.3 <=1.5 % 07/29/2024 2:02 PM [facility] Sodium, Venous 137 135 - 145 mmol/L 07/29/2024 2:02 PM [facility] Potassium, Venous 3.6 3.5 - 5.0 mmol/L 07/29/2024 2:02 PM [facility] Chloride, Venous 103 98 - 107 mmol/L 07/29/2024 2:02 PM [facility] Glucose, Venous 229(H) 65 - 199 mg/dL 07/29/2024 2:02 PM [facility] Comment:Glucose Concentratio n >=200 mg/dL plus symptoms is consistent with Diabetes Mellitus. Lactate, Venous 3.1(H) 0.5 - 2.2 mmol/L 07/29/2024 2:02 PM [facility] Ionized Calcium, Venous 1.11(L) 1.15 - 1.33 mmol/L 07/29/2024 2:02 PM [facility] Blood VENOUS BLOOD SPECIMEN / Unknown 07/29/2024 2:01 PM EST 07/29/2024 2:02 PM EST Vahe Marvin MD POINT OF CARE TEST O RDERABLES [facility] [place] [address] * (ABNORMAL) BLOOD GAS, POC (07/29/2024 12:46 PM EST) Only the most recent of2 resultswithin the time period is included. Sodium, POC 139 135 - 145 mmol/L 07/30/2024 7:30 AM [facility] Potassium, POC 3.4(L) 3.5 - 5.0 mmol/L 07/30/2024 7:30 AM [facility] pH, POC 7.33(L) 7.35 - 7.45 07/30/2024 7:30 AM [facility] Ionized Calcium, POC 1.13(L) 1.15 - 1.33 mmol/L 07/30/2024 7:30 AM [facility] pCO2, POC 38 35 - 45 mmHg 07/30/2024 7:30 AM [facility] pO2, POC 94 85 - 104 mmHg 07/30/2024 7:30 AM [facility] Base Excess, POC -6.0(L) -3.0 - 3.0 mmol/L 07/30/2024 7:30 AM [facility] Hematocrit, POC 39.0(L) 40.5 - 48.5 %PCV 07/30/2024 7:30 AM [facility] Hemoglobin, POC 13.3(L) 13.7 - 16.5 g/dL 07/30/2024 7:30 AM EST [facility] Comment:The calculation of h emoglobin from hematocrit assumes a normal MCHC. Bicarbonate, POC 19.8(L) 20.0 - 26.0 mmol/L 07/30/2024 7:30 AM EST [facility] Carbon Dioxide, POC 21(L) 22 - 31 mmol/L 07/30/2024 7:30 AM EST [facility] Blood VENOUS BLOOD SPECIMEN / Unknown 07/29/2024 12:46 PM EST 07/30/2024 7:30 AM EST Vahe Marvin MD POINT OF CARE TEST O RDERABLES Performing Organization Address [facility]/[place] [address] * External Cardiology Result (07/29/2024 10:13 AM [...] - GENER AL ORDERABLES Performing Organization Address City/[facility]/ZIP Co de Phone Number [facility] [place] [address] * COLONOSCOPY (08/30/2023 10:57 AM EST) COLONOSCOPY [facility] Endoscopy Procedure Date: 08/30/2023 10:57 AM ? Patient Name: Korey Montoya ? Date of : 1950 ? Age: 73 ? Order #: [id number] ? Instrument Name: [id number] ? Procedure: ? Colonoscopy Indications: ? Rectal [...] preparation was evaluated ? using the BBPS ([place] Bowel ? Preparation Scale) with scores of: [...] 08/30/2023 10:5 7 AM EST Yoel Artis [employer] GENERAL SURGICAL ORD ERABLES PROVATION from Last 3 Months or Most Recently Relevant to Health Maintenance Advance Directives * Attempt Cardiopulmonary Resuscitation - Inpatient (Latest Code Status on File) Date Activated Date Inactivated Comments 07/29/2024 2:01 PM 08/04/2024 7:34 PM Question Answer Comments Code Status decision made by: Patient Content of discussion: pre-arrest limitations Care Teams Bunch Maker Hand Relationship Specialty Start Date End Date Alexia Mtz APRN [address] [place] [id number] PCP - General Family Medicine 07/30/24
--- OUTSIDE RECORDS SUMMARY | 2024-08-31 10:08 | XMS_ITS | Encounter Summary ---
[place] [address] Care Team Providers Care Reception Interviewer Name Role Phone Alexia Mtz HYDRO STATION SUPERVISOR Primary Care Provider [phone] Reason for Visit * Auth/Cert (Routine) Specialty Diagnoses / Procedures Referred By Theodore t Referred To Contact Diagnoses STEMI (ST elevation myocardial infarction) STEMI Procedures ER Vahe Lopez MD [facility] [place] [address] [facility] Referral ID Status Reason Start Date Expiration Date Visits Re quested Visits Authorized [id number] 1 1 Encounter Details Date Type Department Care Team (Late st Contact Info) Description 07/31/2024 4:45 PM EST Anesthesia [place] [address] Venkatesh Mauricio MD [facility] [place] [address] Anesthesia Record Procedure Summary Procedure Name Responsible [...] Right; femoral vein; hemodynamic monitoring; Placed in cardiac cath lab radiology technologist; 08/01/24; 1420 07/29/24 1300 by Silvia Wan RN 08/01/24 1420 by Marivel English RN PIV 07/29/24; 1300; [id number] catheter system; 18 gauge; basilic vein (medial side of arm), left; present on admission to [facility]; 08/04/24; 1553 07/29/24 1300 by Silvia aWn RN 08/04/24 1553 by Tonya Watson RN [...] Ary Malone RN 08/01/24 1420 by Marivel Englihs RN Urethral Catheter 07/30/24; 0257; Q1-2 hr [...] drink = 0.6 oz pur e alcohol) [facility] Utilities Answer Date Recorded In [...] any time in the past 12 m [facility], were you homeless or living in a long term (including now)? No 07/30/2024 IPV Inpatient Questions [...] AM EST Office Visit Cardiology at [address] [phone] Mushtaq Murphy APRN documented as of this encounter Visit Diagnoses Not on filedocumented in this encounter Care Teams Reception Interviewer Relationship Specialty Start Date End Date Alexia Mtz, [address] [place] [address] PCP - General Family Medicine 07/30/24 documented as of this encounter
--- OUTSIDE RECORDS SUMMARY | 2024-08-31 10:08 | XMS_ITS | Encounter Summary ---
Author Organization Formerly [facility] Address [facility] [place] [address] Care Team Providers Care Packing Inspector Name Role Phone SelfridgeAlexia shell Shun ALCALA Primary Care Provider [phone] Reason for Referral * Consultation (Routine) - Authorized Specialty Diagnoses / Procedures Referred By Contac t Referred To Contact Cardiology Diagnoses HFrEF (heart failure with reduced ejection fraction) [facility] S/P D/C acute HFrEF Alex Small MD [facility] [place] [address] Mushtaq Murphy APRN [facility] [place] [address] [place] [address] Referral ID Status Reason Start Date Expiration Date Visits Requested Visits Authorized [id number] Authorized Consult, Test & Treat 08/04/2024 08/04/2025 1 1 * Consultation (Routine) - Authorized Specialty Diagnoses / Procedures Referred By Contac t Referred To Contact Cardiology Diagnoses ST elevation myocardial infarction involving left anterior descending (LAD) coronary artery Yrn Ward MD [facility] [place] [address] Cardiac Rehab, [address] [place] [address] Referral ID Status Reason Start Date Expiration Date Visits Requested Visits Authorized [id number] Authorized Consult, Test & Treat 08/04/2024 01/31/2025 36 36 Reason for Visit * Auth/Cert (Routine) Specialty Diagnoses / Procedures Referred By Contac t Referred To Contact Diagnoses STEMI (ST elevation myocardial infarction) STEMI Procedures ER IPI Vahe Marvin MD [facility] [place] [address] [facility] Referral ID Status Reason Start Date Expiration Date Visits Re quested Visits Authorized [id number] 1 1 Encounter Details Date Type Department Care Team (Latest Contact Info) Description 07/29/2024 11:45 AM EST - 08/04/2024 5:00 PM EST Hospital Encounter Cardiovascular [place] [phone] Vahe Marvin MD [facility] [place] [address] Jay Silverio MD [facility] [place] [address] Krystal Parker MD [facility] [place] [address] Bridgette Stauffer MD [facility] [place] [address] Yrn Ward MD [facility] [place] [address] Alex Small MD [facility] [place] [address] ST elevation myocardial infarction involving left anterior descending (LAD) coronary artery; HFrEF (heart failure with reduced ejection fraction) Discharge Disposition: Home Social History Tobacco Use Types Packs/Day Years Used Date Smoking Tobacco: Former Cigarettes Smokeless Tobacco: Never Alcohol Use Standard Drinks/Week Comments Not Currently 0 (1 standard drink = 0.6 oz pur e alcohol) [facility] Utilities Answer Date Recorded In the [...] any time in the past 12 m [facility], were you homeless or living in [...] Korey Montoya Patient Age: 74 y.o. Language: Nigerian Race: White Ethnicity: Not nor Admit date: [...] the [facility] Coroner'S Juror . Issues afterhours and on weekends will [...] at time of transfer to [facility]. CI initially 1.97, improved to 2.2 [...] the next year. Access was via right TOP LIFT AND AUTOMATIC WINDOW REPAIRER and this sitewas clean, dry and intact [...] for Chest pain. Replaces: nitroGLYcerin 400 mcg/spray [place], Non-Aerosol 0.4 mg Quantity: 90 tablet Refills: [...] Refills: 0 STOPPED Medications nitroGLYcerin 400 mcg/spray [place], Non-Aerosol Commonly known as: NITROLINGUAL Replaced by: [...] of one year. After this time, your study abroad coordinator will determine if you need to continue [...] away. Stay on the phone. The emergency cable armorer operator will tell you what to do. [...] appointments: During 8am-5pm Tuesday through Tuesday call [phone] to speak with a nurse in the cardiology clinic All other times call [phone] and ask to speak to the call center manager irrigation technician. Follow up Appointments: PCP Alexia Mtz, DIRECTOR FRAUD [phone]. Please call to establish a follow up appointment within 1-2 weeks of discharge. Cardiology. Referral to heart failure has been sent. General Instructions None Future Appointments and Orders Future Orders Complete By Expires Referral to Cardiac Rehab [TTW331 Custom] As directed Process Instructions: If no progress note charted, please enter Clinical details in comments. Scheduling Instructions: Questions: My question or request is: STEMI, PCI- cardiac rehab at [facility] Referral to Cardiology [REF12 Custom] As directed Process Instructions: If no progress note charted, please enter Clinical details in comments. Scheduling Instructions: Questions: My question or request is: acute HFrEF Discharge References/Attachments None > 30 minutes spend on day of discharge chart review, patient counseling, and documentation. Alxe Small MD 08/04/2024 documented in this encounter [...] of one year. After this time, your study abroad coordinator will determine if you need to continue [...] away. Stay on the phone. The emergency cable armorer operator will tell you what to do. [...] appointments: During 8am-5pm Tuesday through Tuesday call [phone] to speak with a nurse in the cardiology clinic All other times call [phone] and ask to speak to the call center manager irrigation technician. Follow up Appointments: PCP Alexia Mtz, DIRECTOR FRAUD [phone]. Please call to establish a follow up [...] 07/29 for LHC and LOW to [facility] for 100% occlusion Social History: Pt lives with his in a 1 level home with 2 NAOMI. 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 He [...] Total time: 35 (tef) minutes Time IN/OUT: 4834-6204 ZAIDA DUBOSE PT Pager: [phone] Physical Therapy Inpatient Rehabilitation Department * Yrn Ward MD - 08/03/2024 10:38 AM EST CV HOSPITALIST 2 - [facility] DAILY PROGRESS NOTE Page [phone] to reach a provider 04/04 Admit Date: [...] Compared to the overnight study by the irrigation technician fellow the impella position is stable. The [...] telemetry from the last 24 hours. [facility] Assessment: ASSESSMENT: Korey Montoya is a [...] be determined OT: PCP Alexia Mtz, FREDRICK [phone] * Zaida Dubose, PT - 08/02/2024 2:08 [...] home with 2 NAOMI. 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 He [...] Total time: 37 (eval) minutes Time IN/OUT: 0591-0067 ZAIDA DUBOSE PT Pager: [phone] Physical Therapy Inpatient Rehabilitation Department * Gagan [...] at time of transfer to [facility]. CI initially 1.97, improved to 2.2 [...] PCP: Alexia Mtz APRN PCP phone number: [phone] Date of Admission: 07/29/2024 ( Hospital Day [...] 07/29/24 1621 PHART 7.48* 7.44 7.38 7.37 [id number] 29* 29* 34* 36 PO2ART 71* 109* 141* 71* QLV2SVN 20.6 19.4* 19.5* 20.4 VBG (Venous Blood Gas) Recent Labs 07/29/24 1401 PHVEN 7.30* PO2VEN 39 QJN4BHP 20.1* Mixed Venous Sat No results for input(s): O1FXVG8 in the last 168 hours. Objective: Vitals [...] 07/29/24 1621 PHART 7.48* 7.44 7.38 7.37 MVR3DDX 29* 29* 34* 36 PO2ART 71* 109* 141* 71* PKA5FPX 20.6 19.4* 19.5* 20.4 VBG (Venous Blood Gas) Recent Labs 07/29/24 1401 PHVEN 7.30* PO2VEN 39 UNQ8XPS 20.1* Mixed Venous Sat No results for input(s): Z7DAZV9 in the last 168 hours. Microbiology: Microbiology Results (Last 30 days) Procedure Component Value Units Date/Time Blood culture [[id number]] Collected: 07/29/241607 Lab Status: Preliminary result Specimen: Blood, Venous Updated: 08/01/241700 Blood Culture No growth at 72 hours Blood culture [[id number]] Collected: 07/29/241607 Lab Status: Preliminary result Specimen: Blood, Venous Updated: 08/01/241700 Blood Culture No growth at 72 hours Imaging: Results for orders placed or performed during the hospital encounter of 07/29/24 XR Chest One View (Exam End: 07/29/2024 2:30 PM) Result Value WORKSTATION ID [id number] Impression 1. No pulmonary edema. 2. No pleural effusion. 3. No pneumothorax. Thank you for letting us participate in the care of this patient. If you are a health care provider and have any questions regarding this report, please contact the number below. For patients who have questions please contact the health animal care attendant that requested your imaging first. Electronically signed by: Chris Candelaria MD, [facility] ([phone]), at 07/29/2024 3:21 PM TTE ( 07/30/24) [...] Compared to the overnight study by the irrigation technician fellow the impella position is stable. The [...] MD Internal Medicine, PGY-1 Cardiology, [facility] 08/02/24 12:45 PM CARDIOLOGY STAFF NOTE [...] today). Transfer to floor. Krystal Parker, MD, [facility], [facility] Staff Gaming Associate slat twister * Gagan Catherine MD - 08/01/2024 11:12 [...] PCP: Alexia Mtz APRN PCP phone number: [phone] Date of Admission: 07/29/2024 ( Hospital Day [...] 07/29/24 1621 PHART 7.48* 7.44 7.38 7.37 EKN1NIV 29* 29* 34* 36 PO2ART 71* 109* 141* 71* FRK8OIO 20.6 19.4* 19.5* 20.4 VBG (Venous Blood Gas) Recent Labs 07/29/24 1401 PHVEN 7.30* PO2VEN 39 GXG5UNG 20.1* Mixed Venous Sat No results for input(s): V2TLRS6 in the last 168 hours. PA Catheter [...] 07/29/24 1621 PHART 7.48* 7.44 7.38 7.37 SML5AOT 29* 29* 34* 36 PO2ART 71* 109* 141* 71* FQV9XYW 20.6 19.4* 19.5* 20.4 VBG (Venous Blood Gas) Recent Labs 07/29/24 1401 PHVEN 7.30* PO2VEN 39 UIE9XGT 20.1* Mixed Venous Sat No results for input(s): I3INVQ8 in the last 168 hours. Microbiology: Microbiology Results (Last 30 days) Procedure Component Value Units Date/Time Blood culture [[id number]] Collected: 07/29/241607 Lab Status: Preliminary result Specimen: Blood, Venous Updated: 07/31/241700 Blood Culture No growth at 48 hours Blood culture [[id number]] Collected: 07/29/241607 Lab Status: Preliminary result Specimen: Blood, Venous Updated: 07/31/241700 Blood Culture No growth at 48 hours Imaging: Results for orders placed or performed during the hospital encounter of 07/29/24 XR Chest One View (Exam End: 07/29/2024 2:30 PM) Result Value WORKSTATION ID [id number] Impression 1. No pulmonary edema. 2. No pleural effusion. 3. No pneumothorax. Thank you for letting us participate in the care of this patient. If you are a health care provider and have any questions regarding this report, please contact the number below. For patients who have questions please contact the health animal care attendant that requested your imaging first. Electronically signed by: Chris Candelaria MD, [facility] ([phone]), at 07/29/2024 3:21 PM TTE ( 07/30/24) [...] Compared to the overnight study by the irrigation technician fellow the impella position is stable. The [...] MD Internal Medicine, PGY-1 Cardiology, [facility] 08/01/24 7:13 AM CARDIOLOGY STAFF NOTE [...] with him; questions answered. Krystal Parker MD, [facility], [facility] Staff Gaming Associate slat twister * Krystal Parker MD - 07/31/2024 1:06 [...] THESE DIAGNOSES BEING MANAGED BY [facility] TEAM: # Anterior STEMI, late-presenting # [...] at time of transfer to [facility]. CI initially 1.97, improved to 2.2 After impella. Received about 3 L of fluid during procedural course. Patient initially required norepinephrine 30, epinephrine 10, and vasopressin 0.04 for hemodynamic support, which was weaned upon arrival to [facility] to norepinephrine 20and levo 0.04 N [...] PCP: Alexia Mtz APRN PCP phone number: [phone] Date of Admission: 07/29/2024 ( Hospital Day [...] 0057 07/29/24 1621 PHART 7.44 7.38 7.37 ZIO4OMM 29* 34* 36 PO2ART 109* 141* 71* KTO9LFJ 19.4* 19.5* 20.4 VBG (Venous Blood Gas) Recent Labs 07/29/24 1401 PHVEN 7.30* PO2VEN 39 IDW3WFJ 20.1* Mixed Venous Sat No results for input(s): E9MYIV1 in the last 168 hours. PA Catheter [...] 0057 07/29/24 1621 PHART 7.44 7.38 7.37 UUU7CON 29* 34* 36 PO2ART 109* 141* 71* HGT8TMW 19.4* 19.5* 20.4 VBG (Venous Blood Gas) Recent Labs 07/29/24 1401 PHVEN 7.30* PO2VEN 39 IEN4GLU 20.1* Mixed Venous Sat No results for input(s): V2AYDT2 in the last 168 hours. Microbiology: Microbiology Results (Last 30 days) Procedure Component Value Units Date/Time Blood culture [[id number]] Collected: 07/29/241607 Lab Status: Preliminary result Specimen: Blood, Venous Updated: 07/30/24 170 Blood Culture No Growth at 18-24 hrs. Blood culture [[id number]] Collected: 07/29/241607 Lab Status: Preliminary result Specimen: Blood, Venous Updated: 07/30/241700 Blood Culture No Growth at 18-24 hrs. Imaging: Results for orders placed or performed during the hospital encounter of 07/29/24 XR Chest One View (Exam End: 07/29/2024 2:30 PM) Result Value WORKSTATION ID [id number] Impression 1. No pulmonary edema. 2. No pleural effusion. 3. No pneumothorax. Thank you for letting us participate in the care of this patient. If you are a health care provider and have any questions regarding this report, please contact the number below. For patients who have questions please contact the health animal care attendant that requested your imaging first. Electronically signed by: Chris Candelaria MD, [facility] ([phone]), at 07/29/2024 3:21 PM TTE ( 07/30/24) [...] Compared to the overnight study by the irrigation technician fellow the impella position is stable. The [...] work to optimize volume status while continuing sklackg-lrkton-jehojombkd therapies at this time. Obtain comprehensive TTE. [...] at time of transfer to [facility]. CI initially 1.97, improved to 2.2 After impella. Received about 3 L of fluid during procedural course. Patient initially required norepinephrine 30, epinephrine 10, and vasopressin 0.04 for hemodynamic support, which was weaned upon arrival to [facility] to norepinephrine 20and levo 0.04 N [...] PCP: Yoel Artis APRN PCP phone number: [phone] Date of Admission: 07/29/2024 ( Hospital Day [...] 0057 07/29/24 1621 PHART 7.44 7.38 7.37 FHK0IFZ 29* 34* 36 PO2ART 109* 141* 71* PJN0ZJG 19.4* 19.5* 20.4 VBG (Venous Blood Gas) Recent Labs 07/29/24 1401 PHVEN 7.30* PO2VEN 39 DQB2BIT 20.1* Lactate ( Last 12 hours) 1.3 >> 1.2 Mixed Venous Sat No results for input(s): V3HBMT4 in the last 168 hours. PA Catheter [...] 0057 07/29/24 1621 PHART 7.44 7.38 7.37 NQA7OJD 29* 34* 36 PO2ART 109* 141* 71* RBY7TUB 19.4* 19.5* 20.4 VBG (Venous Blood Gas) Recent Labs 07/29/24 1401 PHVEN 7.30* PO2VEN 39 RJJ2MIN 20.1* Mixed Venous Sat No results for input(s): V1HLXK0 in the last 168 hours. Microbiology: Microbiology Results (Last 30 days) Procedure Component Value Units Date/Time Blood culture [[id number]] Collected: 07/29/24 1608 Lab Status: In process Specimen: Blood, Venous Updated: 07/29/24 162 Blood culture [[id number]] Collected: 07/29/241607 Lab Status: In process Specimen: Blood, Venous Updated: 07/29/24 161 Imaging: Results for orders placed or performed during the hospital encounter of 07/29/24 XR Chest One View (Exam End: 07/29/2024 2:30 PM) Result Value WORKSTATION ID [id number] Impression 1. No pulmonary edema. 2. No pleural effusion. 3. No pneumothorax. Thank you for letting us participate in the care of this patient. If you are a health care provider and have any questions regarding this report, please contact the number below. For patients who have questions please contact the health animal care attendant that requested your imaging first. Electronically signed by: Chris Candelaria MD, [facility] ([phone]), at 07/29/2024 3:21 PM Medications Scheduled Meds: [...] [facility] for further management and [facility] demo nstrated 100% occlusion. No significant [...] (WRVU 4.57) performed by Brandan Mcgovern MD [facility] ENDOSCOPY Significant Family History: Family History Problem [...] mouth. Past Week nitroGLYcerin (NITROLINGUAL) 400 mcg/spray [place], Non-Aerosol 1 spray to anus for proctalgia [...] 3.5 guiding catheter and a 3.[address] [place] [address] 20 Mhz using Manual pullback. Imaging [...] priority for the procedure was Emergent. The [facility] indication for the procedure was STEMI-Immediate PCI [...] atmospheres. A premounted 3.00 x 22 mm [place] (LOW) was deployed with a maximum inflation [...] A premounted 3.00 x 08 mm [place] (LOW) was deployed with a maximum inflation [...] a limited study performed by a fellow irrigation technician to evaluate for cardiogenic shock with impella [...] Compared to the overnight study by the irrigation technician fellow the impella position is stable. The [...] PCP: Yoel Artis APRN PCP phone number: [phone] Date of Admission: 07/29/2024 ( Hospital Day [...] (WRVU 4.57) performed by Brandan Mcgovern MD [facility] ENDOSCOPY Family History Family History Problem Relation [...] Blood Gas) No results for input(s): PHART, GMM3MTJ, PO2ART, NUQ4SXN, LACTATEVEN, CLT4QIY, PFRATIOART2 in the last 168 hours. VBG (Venous Blood Gas) Recent Labs 07/29/24 1401 PHVEN 7.30* PO2VEN 39 KGW7ZJJ 20.1* Mixed Venous Sat No results for input(s): U5MJLT8 in the last 168 hours. PA Catheter [...] Blood Gas) No results for input(s): PHART, RDR9BZF, PO2ART, TZT5MZM, LACTATEVEN, FPX6LBM, PFRATIOART2 in the last 168 hours. VBG (Venous Blood Gas) Recent Labs 07/29/24 1401 PHVEN 7.30* PO2VEN 39 JBZ6NIP 20.1* Mixed Venous Sat No results for input(s): L3XAOX4 in the last 168 hours. Microbiology: Microbiology [...] but improving upon admission to [facility], requiring hemodynamic support with norepinephrine and vasopressin at time of admission along with mechanical support with Impella device. Reassuringly, he demonstrates decreasing pressor requirements since admission to [facility], with epinephrine completely weaned. He does [...] MD Internal Medicine, PGY-3 Cardiology, [facility] 07/29/24 3:14 PM Cardiology Attending Note [...] FACP, FACC Section of Cardiovascular Medicine [facility] Pipe And Test Supervisorphotographic equipment inspector [facility] [employer] [facility] This patient meets or has met [...] to the planned procedure. Hand Hygiene: The house carpenter helper did perform hand hygiene prior to arterial [...] ease. Good wave form. Ivan Hernandez MD Data Integration Architect Associated attestation - Rolando Yeh MD - [...] Fahad was quite active prior to his VA. 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 Given parameters for home exercise. He follows a heart healthy diet and is not overweight. His lipids are wnl. Participation in an outpatient cardiac rehabilitation program at [facility] was discussed. Patient agrees to a referral [...] MEDICARE Payor: AAR MANAGED MEDICARE / [facility] / [...] of Discharge: 08/04/2024 Gaby Wong RN, CM [phone] * Initial Assessments - Char Meza OT [...] (WRVU 4.57) performed by Brandan Mcgovern MD [facility] ENDOSCOPY Social History: Patient lives with his [...] evaluation only Total Minutes, Occupational Therapy: 14 ([id number] (evaluation)) 2017 OT Evaluation Code Rationale: Diagnosis [...] and measurable assessment of functional outcome. Pager: [phone] Char Meza OT 08/03/2024 Occupational Therapy Rehabilitation [...] Procedure Note: Patient Name: Korey Montoya : [id number] MR#: [id number] Case Date: 07/31/2024 Coroner'S Juror: Surgeons and Role: * Maldonado Luis MD - Primary * Quinten Charles PA - Physician Belt Loop Machine Operator Preoperative diagnosis: shock, impella Postoperative diagnosis: * same * Procedure(s) performed: Impella removal form right TOP LIFT AND AUTOMATIC WINDOW REPAIRER Access: Right TOP LIFT AND AUTOMATIC WINDOW REPAIRER A time-out was conducted prior to the [...] Admitted From: Transfer from another hospital Location: [facility] Reason for Hospitalization: chest pain Past [...] receiving care in [place] must abide by [place] law. The hierarchy [...] The agent with financial power of attorney recruiter or a conservator appointed in accordance with [...] In the past 12 months has the [employer], gas, oil, or water [employer] threatened to shut off services in your [...] it) Home Address confirmed as: Mailing Address: [facility] [address] [place] [address] Physical Address: [address] [place], [place] Social & Family Supports: All names [...] points: Addiction likely Health/Prescription Coverage: Primary Insurance: [facility] [employer] MEDICARE Payor: [facility] [employer] MEDICARE / Plan: [facility] [employer] MEDICARE COMPLETE / Product Type: *No Product type* / Secondary Insurance: N/A ; Prescription Coverage: Yes Preferred Pharmacy: [address] [address] [place] Status: Patient is a : No Primary Care Provider confirmed: Alexia Mtz, FREDRICK [phone] Patient/Caregiver Goals of Treatment: return home Potential [...] 07/29/2024 6:25 PM EST Pt arrived from photofinishing laboratory worker @ 1400. CXR and EKG completed. Impella [...] Procedure Note: Patient Name: Korey Montoya : [id number] MR#: [id number] Case Date: 07/29/2024 Coroner'S Juror: Surgeons and Role: * Vahe Marvin MD - Primary * Susannah Watts PA - Physician Belt Loop Machine Operator Preoperative diagnosis: STEMI Postoperative diagnosis: * STEMI, LAD Artery * * Cardiogenic Shock * Procedure(s) performed: [facility] Coronary angiogram Stent insertion coronary IVUS coronary Venous line insert RH Rochelle Colette Catheter Vascular closure device Ventricular assist [...] x 22 mm to 14 deonna [place] with LIZ 3 flow. Residual distal disease at distal stent, overlapping distal stent was inserted with 3.0 x 8 mm [place]. Systolic's in the 80's sustained. Patient re [...] 10:00 AM EST Office Visit Cardiology at [address] [address] Mushtaq Murphy, DIRECTOR FRAUD Scheduled Orders Name Type Priority Associated Diagnoses [...] CBC (with Diff) (08/04/2024 6:08 AM EST) [facility] White Blood Cell 7.27 4.00 - 9.50 x10(3)/mc L 08/04/2024 6:39 AM [facility] Red Blood Cell 4.28(L) 4.58 - 5.54 x10(6)/mc L 08/04/2024 6:39 AM [facility] Hemoglobin 11.6(L) 13.7 - 16.5 g/dL 08/04/2024 6:39 AM [facility] Hematocrit 34.8(L) 40.5 - 48.5 % 08/04/2024 6:39 AM [facility] Mean Cell Volume 81.3(L) 82.9 - 93.1 fL 08/04/2024 6:39 AM [facility] Mean Cell Hemoglobin 27.1(L) 27.5 - 32.1 pg 08/04/2024 6:39 AM [facility] Mean Cell Hemoglobin Concentration 33.3 32.0 - 35.7 g/dL 08/04/2024 6:39 AM [facility] Platelet 178 145 - 357 x10(3)/mc L 08/04/2024 6:39 AM [facility] Mean Platelet Volume 10.6 7.6 - 12.9 fL 08/04/2024 6:39 AM [facility] RDW Standard Deviation 42.0 36.0 - 45.0 fL 08/04/2024 6:39 AM [facility] RDW coefficient of variation 14.3(H) 11.4 - 13.8 % 08/04/2024 6:39 AM [facility] NRBC% auto 0.0 % 08/04/2024 6:39 AM [facility] NRBC Absolute <0.01 <0.01 x10(3)/mc L 08/04/2024 6:39 AM [facility] Neutrophil % 72.1 % 08/04/2024 6:39 AM [facility] Neutrophil Absolute (ANC) - Automated 5.24 1.70 - 6.10 x10(3)/mc L 08/04/2024 6:39 AM [facility] Lymph % 16.8 % 08/04/2024 6:39 AM [facility] Lymph Absolute 1.22 0.90 - 3.20 x10(3)/mc L 08/04/2024 6:39 AM [facility] Monocyte % 8.5 % 08/04/2024 6:39 AM [facility] Monocyte Absolute 0.62 0.30 - 0.90 x10(3)/mc L 08/04/2024 6:39 AM [facility] Eos % 1.9 % 08/04/2024 6:39 AM [facility] Eos Absolute 0.14 0.00 - 0.40 x10(3)/mc L 08/04/2024 6:39 AM [facility] [facility] Basophil % 0.4 % 08/04/2024 6:39 AM [facility] Baso Absolute <0.04 0.00 - 0.10 x10(3)/mc L 08/04/2024 6:39 AM [facility] Immature Gran % 0.3 % 6:39 AM [facility] Immature Gran Absolute <0.04 0.00 - 0.04 x10(3)/mc L 08/04/2024 6:39 AM [facility] Blood VENOUS BLOOD SPECIMEN / Unknown Venipuncture / Unknown 08/04/2024 6:08 AM EST 08/04/2024 6:19 AM EST Bridgette Stauffer MD HEMATOLOGY ORDERABLE S [facility] [place] [address] * Magnesium (08/04/2024 6:08 AM EST) Magnesium 0.85 0.69 - 1.07 mMol/L 08/04/2024 7:07 AM [facility] Blood VENOUS BLOOD SPECIMEN / Unknown Venipuncture / Unknown 08/04/2024 6:08 AM EST 08/04/2024 6:19 AM EST Bridgette Stauffer MD CHEMISTRY ORDERABLES [facility] [place] [address] * Basic Metabolic Panel (08/04/2024 6:08 AM EST) Glucose 93 65 - 199 mg/dL 08/04/2024 7:07 AM [facility] Comment:Glucose Concentratio n >=200 mg/dL plus symptoms is consistent with Diabetes Mellitus. Blood Urea Nitrogen 14 10 - 20 mg/dL 08/04/2024 7:07 AM [facility] Creatinine 1.07 0.80 - 1.50 mg/dL 08/04/2024 7:07 AM [facility] Sodium 138 135 - 145 mMol/L 08/04/2024 7:07 AM [facility] Potassium 4.3 3.5 - 5.0 mMol/L 08/04/2024 7:07 AM [facility] Chloride 107 98 - 107 mMol/L 08/04/2024 7:07 AM [facility] Carbon Dioxide 23 22 - 31 mMol/L 08/04/2024 7:07 AM [facility] Anion Gap 8 5 - 15 mMol/L 08/04/2024 7:07 AM [facility] Calcium 8.5 8.5 - 10.5 mg/dL 08/04/2024 7:07 AM [facility] Est Glomerular Filtration Rate - Male 74 mL/min/1. 73 m?? 08/04/2024 7:07 AM [facility] Comment: This patient's estimated GFR [...] MD CHEMISTRY ORDERABLES [facility] [place] [address] * (ABNORMAL) CBC (with Diff) (08/03/2024 5:16 AM EST) White Blood Cell 7.85 4.00 - 9.50 x10(3)/mc L 08/03/2024 5:29 AM [facility] Red Blood Cell 4.43(L) 4.58 - 5.54 x10(6)/mc L 08/03/2024 5:29 AM [facility] Hemoglobin 11.8(L) 13.7 - 16.5 g/dL 08/03/2024 5:29 AM [facility] Hematocrit 35.9(L) 40.5 - 48.5 % 08/03/2024 5:29 AM [facility] Mean Cell Volume 81.0(L) 82.9 - 93.1 fL 08/03/2024 5:29 AM [facility] Mean Cell Hemoglobin 26.6(L) 27.5 - 32.1 pg 08/03/2024 5:29 AM [facility] Mean Cell Hemoglobin Concentration 32.9 32.0 - 35.7 g/dL 08/03/2024 5:29 AM [facility] Platelet 142(L) 145 - 357 x10(3)/mc L 08/03/2024 5:29 AM [facility] Mean Platelet Volume 10.5 7.6 - 12.9 fL 08/03/2024 5:29 AM [facility] RDW Standard Deviation 42.5 36.0 - 45.0 fL 08/03/2024 5:29 AM [facility] RDW coefficient of variation 14.2(H) 11.4 - 13.8 % 08/03/2024 5:29 AM [facility] NRBC% auto 0.0 % 08/03/2024 5:29 AM [facility] NRBC Absolute <0.01 <0.01 x10(3)/mc L 08/03/2024 5:29 AM [facility] Neutrophil % 75.2 % 08/03/2024 5:29 AM [facility] Neutrophil Absolute (ANC) - Automated 5.91 1.70 - 6.10 x10(3)/mc L 08/03/2024 5:29 AM [facility] Lymph % 13.4 % 08/03/2024 5:29 AM [facility] Lymph Absolute 1.05 0.90 - 3.20 x10(3)/mc L 08/03/2024 5:29 AM [facility] Monocyte % 9.0 % 08/03/2024 5:29 AM [facility] Monocyte Absolute 0.71 0.30 - 0.90 x10(3)/mc L 08/03/2024 5:29 AM [facility] Eos % 1.7 % 08/03/2024 5:29 AM [facility] Eos Absolute 0.13 0.00 - 0.40 x10(3)/mc L 08/03/2024 5:29 AM [facility] Basophil % 0.4 % 08/03/2024 5:29 AM [facility] Baso Absolute <0.04 0.00 - 0.10 x10(3)/mc L 08/03/2024 5:29 AM [facility] Immature Gran % 0.3 % 5:29 AM [facility] Immature Gran Absolute <0.04 0.00 - 0.04 x10(3)/mc L 08/03/2024 5:29 AM [facility] Blood VENOUS BLOOD SPECIMEN / Unknown Venipuncture / Unknown 08/03/2024 5:16 AM EST 08/03/2024 5:23 AM EST Bridgette Stauffer MD HEMATOLOGY ORDERABLE S [facility] [place] [address] * Magnesium (08/03/2024 5:16 AM EST) Magnesium 0.89 0.69 - 1.07 mMol/L 08/03/2024 5:56 AM [facility] Blood VENOUS BLOOD SPECIMEN / Unknown Venipuncture / Unknown 08/03/2024 5:16 AM EST 08/03/2024 5:23 AM EST Bridgette Stauffer MD CHEMISTRY ORDERABLES [facility] [place] [address] * (ABNORMAL) Basic Metabolic Panel (08/03/2024 5:16 AM EST) Glucose 98 65 - 199 mg/dL 08/03/2024 5:56 AM [facility] Comment:Glucose Concentratio n >=200 mg/dL plus symptoms is consistent with Diabetes Mellitus. Blood Urea Nitrogen 16 10 - 20 mg/dL 08/03/2024 5:56 AM [facility] Creatinine 0.85 0.80 - 1.50 mg/dL 08/03/2024 5:56 AM [facility] Sodium 137 135 - 145 mMol/L 08/03/2024 5:56 AM EST [facility] Potassium 4.5 3.5 - 5.0 mMol/L 08/03/2024 5:56 AM [facility] Chloride 106 98 - 107 mMol/L 08/03/2024 5:56 AM [facility] Carbon Dioxide 21(L) 22 - 31 mMol/L 08/03/2024 5:56 AM [facility] Anion Gap 10 5 - 15 mMol/L 08/03/2024 5:56 AM EST [facility] Calcium 8.3(L) 8.5 - 10.5 mg/dL 08/03/2024 5:56 AM [facility] Est Glomerular Filtration Rate - Male 92 mL/min/1. 73 m?? 08/03/2024 5:56 AM [facility] Comment: This patient's estimated GFR [...] CHEMISTRY ORDERABLES Performing Organization Address [facility]/ZIP Co de Phone Number [facility] [place] [address] * POC, GLUCOSE (08/02/2024 7:47 AM EST) Glucometer, POC 89 65 - 199 mg/dL 08/02/2024 7:47 AM EST [facility] Comment:Supplemental ranges: <140 mg/dL before meals <180 mg/dL all other times of the day. Blood CAPILLARY BLOOD / Unknown 08/02/2024 7:47 AM EST 08/02/2024 7:47 AM EST Krystal Parker MD POINT OF CARE TEST O RDERABLES Performing Organization Address [facility] Co de Phone Number [facility] [place] [address] * (ABNORMAL) CBC (with Diff) (08/02/2024 4:20 AM EST) White Blood Cell 8.51 4.00 - 9.50 x10(3)/mc L 08/02/2024 4:50 AM EST [facility] Red Blood Cell 4.41(L) 4.58 - 5.54 x10(6)/mc L 08/02/2024 4:50 AM EST [facility] Hemoglobin 12.2(L) 13.7 - 16.5 g/dL 08/02/2024 4:50 AM EST [facility] Hematocrit 35.8(L) 40.5 - 48.5 % 08/02/2024 4:50 AM [facility] Mean Cell Volume 81.2(L) 82.9 - 93.1 fL 08/02/2024 4:50 AM [facility] Mean Cell Hemoglobin 27.7 27.5 - 32.1 pg 08/02/2024 4:50 AM [facility] Mean Cell Hemoglobin Concentration 34.1 32.0 - 35.7 g/dL 08/02/2024 4:50 AM [facility] Platelet 111(L) 145 - 357 x10(3)/mc L 08/02/2024 4:50 AM [facility] Mean Platelet Volume 11.1 7.6 - 12.9 fL 08/02/2024 4:50 AM [facility] RDW Standard Deviation 41.9 36.0 - 45.0 fL 08/02/2024 4:50 AM [facility] RDW coefficient of variation 14.1(H) 11.4 - 13.8 % 08/02/2024 4:50 AM [facility] NRBC% auto 0.0 % 08/02/2024 4:50 AM [facility] NRBC Absolute <0.01 <0.01 x10(3)/mc L 08/02/2024 4:50 AM [facility] Neutrophil % 77.7 % 08/02/2024 4:50 AM [facility] Neutrophil Absolute (ANC) - Automated 6.62(H) 1.70 - 6.10 x10(3)/mc L 08/02/2024 4:50 AM [facility] Lymph % 11.9 % 08/02/2024 4:50 AM [facility] Lymph Absolute 1.01 0.90 - 3.20 x10(3)/mc L 08/02/2024 4:50 AM [facility] Monocyte % 8.2 % 08/02/2024 4:50 AM [facility] Monocyte Absolute 0.70 0.30 - 0.90 x10(3)/mc L 08/02/2024 4:50 AM [facility] Eos % 1.4 % 08/02/2024 4:50 AM [facility] Eos Absolute 0.12 0.00 - 0.40 x10(3)/mc L 08/02/2024 4:50 AM [facility] Basophil % 0.4 % 08/02/2024 4:50 AM [facility] Baso Absolute <0.04 0.00 - 0.10 x10(3)/mc L 08/02/2024 4:50 AM [facility] Immature Gran % 0.4 % 4:50 AM [facility] Immature Gran Absolute <0.04 0.00 - 0.04 x10(3)/mc L 08/02/2024 4:50 AM [facility] Blood VENOUS BLOOD SPECIMEN / Unknown Venipuncture / Unknown 08/02/2024 4:20 AM EST 08/02/2024 4:37 AM EST Bridgette Stauffer MD HEMATOLOGY ORDERABLE S [facility] [place] [address] * Magnesium (08/02/2024 4:20 AM EST) Magnesium 0.79 0.69 - 1.07 mMol/L 08/02/2024 5:06 AM EST [facility] Blood VENOUS BLOOD SPECIMEN / Unknown Venipuncture / Unknown 08/02/2024 4:20 AM EST 08/02/2024 4:37 AM EST Bridgette Stauffer MD CHEMISTRY ORDERABLES [facility] [place] [address] * (ABNORMAL) Basic Metabolic Panel (08/02/2024 4:20 AM EST) Glucose 110 65 - 199 mg/dL 08/02/2024 5:06 AM [facility] Comment:Glucose Concentratio n >=200 mg/dL plus symptoms is consistent with Diabetes Mellitus. Blood Urea Nitrogen 12 10 - 20 mg/dL 08/02/2024 5:06 AM [facility] Creatinine 0.90 0.80 - 1.50 mg/dL 08/02/2024 5:06 AM [facility] Sodium 139 135 - 145 mMol/L 08/02/2024 5:06 AM [facility] Potassium 4.0 3.5 - 5.0 mMol/L 08/02/2024 5:06 AM [facility] Chloride 108(H) 98 - 107 mMol/L 08/02/2024 5:06 AM [facility] Carbon Dioxide 23 22 - 31 mMol/L 08/02/2024 5:06 AM [facility] Anion Gap 8 5 - 15 mMol/L 08/02/2024 5:06 AM [facility] Calcium 8.1(L) 8.5 - 10.5 mg/dL 08/02/2024 5:06 AM [facility] Est Glomerular Filtration Rate - Male 91 mL/min/1. 73 m?? 08/02/2024 5:06 AM [facility] Comment: This patient's estimated GFR [...] CHEMISTRY ORDERABLES Performing Organization Address [facility] Co de Phone Number [facility] [place] [address] * Potassium (08/01/2024 8:39 PM EST) Potassium 4.0 3.5 - 5.0 mMol/L 08/01/2024 9:21 PM EST [facility] Blood VENOUS BLOOD SPECIMEN / Unknown Venipuncture / Unknown 08/01/2024 8:39 PM EST 08/01/2024 8:51 PM EST Jay Silverio MD CHEMISTRY ORDERABL ES Performing Organization Address [facility] Phone Number [facility] [place] [address] * POC, GLUCOSE (08/01/2024 8:35 PM EST) Glucometer, POC 112 65 - 199 mg/dL 08/01/2024 8:36 PM EST [facility] Comment:Supplemental ranges: <140 mg/dL before meals <180 mg/dL all other times of the day. Blood CAPILLARY BLOOD / Unknown 08/01/2024 8:35 PM EST 08/01/2024 8:36 PM EST Krystal Parker MD POINT OF CARE TEST O RDERABLES Performing Organization Address [facility] Co de Phone Number [facility] [place] [address] * POC, GLUCOSE (08/01/2024 4:55 PM EST) Glucometer, POC 99 65 - 199 mg/dL 08/01/2024 4:56 PM EST [facility] Comment:Supplemental ranges: <140 mg/dL before meals <180 mg/dL all other times of the day. Blood CAPILLARY BLOOD / Unknown 08/01/2024 4:55 PM EST 08/01/2024 4:56 PM EST Krystal Parker MD POINT OF CARE TEST O JOSH Performing Organization Address [facility] Co de Phone Number [facility] [place] [address] * POC, GLUCOSE (08/01/2024 12:42 PM EST) Glucometer, POC 130 65 - 199 mg/dL 08/01/2024 12:43 PM EST [facility] Comment:Supplemental ranges: <140 mg/dL before meals <180 mg/dL all other times of the day. Blood CAPILLARY BLOOD / Unknown 08/01/2024 12:42 PM EST 08/01/2024 12:43 PM EST Krystal Parker MD POINT OF CARE TEST O JOSH Performing Organization Address [facility] Co de Phone Number [facility] [place] [address] * (ABNORMAL) Cooximetry, POC (08/01/2024 10:45 AM EST) pO2, Coox 32 mmHg 08/01/2024 10:48 AM [facility] Hemoglobin, Coox 12.9(L) 13.7 - 16.5 g/dL 08/01/2024 10:48 AM EST [facility] Oxyhemoglobin, Coox 66.7 % 08/01/2024 10:48 AM [facility] Carboxyhemoglo bin, Coox 1.1 % 08/01/2024 10:48 AM EST [facility] Comment: Nonsmokers: 0.5-1.5% COHB ?? Smokers: Variable ??but usually less than 10% ?? Toxic: 20-30% COHB ?? Lethal: Greater than 60% COHB Methemoglobin, Coox 0.3 <=1.5 % 08/01/2024 10:48 AM EST [facility] Blood (Mixed Venous) 08/01/2024 10:45 AM EST 08/01/2024 10:48 AM EST Krystal Parker MD POINT OF CARE TEST O RDERABLES Performing Organization Address [facility] Co de Phone Number [facility] [place] [address] * Potassium (08/01/2024 8:20 AM EST) Potassium 4.0 3.5 - 5.0 mMol/L 08/01/2024 10:17 AM EST [facility] Blood ARTERIAL BLOOD / Unknown Venipuncture / Unknown 08/01/2024 8:20 AM EST 08/01/2024 8:30 AM EST Jay Silverio MD CHEMISTRY ORDERABL ES Performing Organization Address [facility] Co de Phone Number [facility] [place] [address] * POC, GLUCOSE (08/01/2024 7:44 AM EST) Glucometer, POC 86 65 - 199 mg/dL 08/01/2024 7:44 AM EST [facility] Comment:Supplemental ranges: <140 mg/dL before meals <180 mg/dL all other times of the day. Blood CAPILLARY BLOOD / Unknown 08/01/2024 7:44 AM EST 08/01/2024 7:44 AM EST Krystal Parker MD POINT OF CARE TEST O RDERASHAY Performing Organization Address [facility]/ZIP Co de Phone Number [facility] [place] [address] * (ABNORMAL) CBC (with Diff) (08/01/2024 4:18 AM EST) White Blood Cell 8.51 4.00 - 9.50 x10(3)/mc L 08/01/2024 4:53 AM EST [facility] Red Blood Cell 4.12(L) 4.58 - 5.54 x10(6)/mc L 08/01/2024 4:53 AM [facility] Hemoglobin 11.2(L) 13.7 - 16.5 g/dL 08/01/2024 4:53 AM [facility] Hematocrit 33.8(L) 40.5 - 48.5 % 08/01/2024 4:53 AM [facility] Mean Cell Volume 82.0(L) 82.9 - 93.1 fL 08/01/2024 4:53 AM [facility] Mean Cell Hemoglobin 27.2(L) 27.5 - 32.1 pg 08/01/2024 4:53 AM [facility] Mean Cell Hemoglobin Concentration 33.1 32.0 - 35.7 g/dL 08/01/2024 4:53 AM [facility] Platelet 94(L) 145 - 357 x10(3)/mc L 08/01/2024 4:53 AM [facility] Mean Platelet Volume 10.9 7.6 - 12.9 fL 08/01/2024 4:53 AM [facility] RDW Standard Deviation 44.2 36.0 - 45.0 fL 08/01/2024 4:53 AM [facility] RDW coefficient of variation 14.7(H) 11.4 - 13.8 % 08/01/2024 4:53 AM [facility] NRBC% auto 0.0 % 08/01/2024 4:53 AM [facility] NRBC Absolute <0.01 <0.01 x10(3)/mc L 08/01/2024 4:53 AM [facility] Neutrophil % 82.7 % 08/01/2024 4:53 AM [facility] Neutrophil Absolute (ANC) - Automated 7.04(H) 1.70 - 6.10 x10(3)/mc L 08/01/2024 4:53 AM [facility] Lymph % 8.6 % 08/01/2024 4:53 AM [facility] Lymph Absolute 0.73(L) 0.90 - 3.20 x10(3)/mc L 08/01/2024 4:53 AM [facility] Monocyte % 7.6 % 08/01/2024 4:53 AM [facility] Monocyte Absolute 0.65 0.30 - 0.90 x10(3)/mc L 08/01/2024 4:53 AM [facility] Eos % 0.5 % 08/01/2024 4:53 AM [facility] Eos Absolute 0.04 0.00 - 0.40 x10(3)/mc L 08/01/2024 4:53 AM [facility] Basophil % 0.2 % 08/01/2024 4:53 AM [facility] Baso Absolute <0.04 0.00 - 0.10 x10(3)/mc L 08/01/2024 4:53 AM [facility] Immature Gran % 0.4 % 4:53 AM [facility] Immature Gran Absolute <0.04 0.00 - 0.04 x10(3)/mc L 08/01/2024 4:53 AM [facility] Blood VENOUS BLOOD SPECIMEN / Unknown Venipuncture / Unknown 08/01/2024 4:18 AM EST 08/01/2024 4:29 AM EST Bridgette Stauffer MD HEMATOLOGY ORDERABLE S [facility] [place] [address] * Magnesium (08/01/2024 4:18 AM EST) Magnesium 0.74 0.69 - 1.07 mMol/L 08/01/2024 5:00 AM [facility] Blood VENOUS BLOOD SPECIMEN / Unknown Venipuncture / Unknown 08/01/2024 4:18 AM EST 08/01/2024 4:29 AM EST Bridgette Stauffer MD CHEMISTRY ORDERABLES [facility] [place] [address] * (ABNORMAL) Basic Metabolic Panel (08/01/2024 4:18 AM EST) Glucose 107 65 - 199 mg/dL 08/01/2024 5:00 AM [facility] Comment:Glucose Concentratio n >=200 mg/dL plus symptoms is consistent with Diabetes Mellitus. Blood Urea Nitrogen 8(L) 10 - 20 mg/dL 08/01/2024 5:00 AM [facility] Creatinine 0.82 0.80 - 1.50 mg/dL 08/01/2024 5:00 AM [facility] Sodium 137 135 - 145 mMol/L 08/01/2024 5:00 AM [facility] Potassium 3.9 3.5 - 5.0 mMol/L 08/01/2024 5:00 AM [facility] Chloride 108(H) 98 - 107 mMol/L 08/01/2024 5:00 AM [facility] Carbon Dioxide 21(L) 22 - 31 mMol/L 08/01/2024 5:00 AM [facility] Anion Gap 8 5 - 15 mMol/L 08/01/2024 5:00 AM [facility] Calcium 7.7(L) 8.5 - 10.5 mg/dL 08/01/2024 5:00 AM [facility] Est Glomerular Filtration Rate - Male 93 mL/min/1. 73 m?? 08/01/2024 5:00 AM [facility] Comment: This patient's estimated GFR [...] CHEMISTRY ORDERABLES Performing Organization Address [facility] Co de Phone Number [facility] [place] [address] * POC, GLUCOSE (07/31/2024 8:41 PM EST) [facility] Signature Glucometer, POC 73 65 - 199 mg/dL 07/31/2024 8:41 PM EST [facility] Comment:Supplemental ranges: <140 mg/dL before meals <180 mg/dL all other times of the day. Blood CAPILLARY BLOOD / Unknown 07/31/2024 8:41 PM EST 07/31/2024 8:41 PM EST Krystal Parker MD POINT OF CARE TEST O RDERABLES Performing Organization Address [facility] Co de Phone Number [facility] [place] [address] * CARDIAC CATHETERIZATION (07/31/2024 5:53 PM EST) Anatomical Region Laterality Modality Other Narrative 08/01/2024 12:37 PM EST ?[facility] ? Cardiac Catheterization/Intervention Report ? Patient Name: Korey Montoya. ? Procedure Date: 07/31/2024 ? A #: [id number] ? Primary Physician: Janelle, Maldonado T ? Case #: [id number] ? File Name: [id number] ? Catheterization Order Number: [id number] ? [facility] ? Final Report [place], [place] ? Patient Name: ? Korey P. Montoya ?ID#: ?[id number] ? : ?1950 ? Procedure Date: ? July 31, 2024 ?Case #: ? [id number] ? Room: ? 1 ? Case Physician: [...] ? 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 ??Good [...] Luis MD - 08/01/[address] [facility] Cardiac Catheterization/Intervention Report Patient Name: Korey MontoyaToby Procedure Date: 07/31/2024 A #: [id number] Primary Physician: Maldonado Luis Case #: [id number] File Name: [id number] Catheterization Order Number: [id number] [facility] FinalReport [place], [place] Patient Name: Korey Montoya ID#:[id number] :1950 Procedure Date: July 31, 2024 Case [...] IV. The [facility] clinical frailtyscale is 4: Vulnerable. Diagnostic Tests: [...] procedures. 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 Good [...] * POC, GLUCOSE (07/31/2024 11:04 AM EST) [facility] Glucometer, POC 82 65 - 199 mg/dL 07/31/2024 11:04 AM EST [facility] Comment:Supplemental ranges: <140 mg/dL before meals <180 mg/dL all other times of the day. Blood CAPILLARY BLOOD / Unknown 07/31/2024 11:04 AM EST 07/31/2024 11:04 AM EST Krystal Parker MD POINT OF CARE TEST O RDERABLES [facility] [place] [address] * (ABNORMAL) Blood Gas, Arterial POC (07/31/2024 8:29 AM EST) Pathologist [facility] pH, Arterial 7.48(H) 7.35 - 7.45 07/31/2024 8:30 AM EST [facility] PCO2, Arterial 29(L) 35 - 45 mmHg 07/31/2024 8:30 AM EST [facility] PO2, Arterial 71(L) 85 - 104 mmHg 07/31/2024 8:30 AM EST [facility] Bicarbonate, Arterial 20.6 20.0 - 26.0 mmol/L 07/31/2024 8:30 AM EST [facility] Base Excess, Arterial -3.0 -3.0 - 3.0 mmol/L 07/31/2024 8:30 AM [facility] Hemoglobin, Arterial 12.3(L) 13.7 - 16.5 g/dL 07/31/2024 8:30 AM [facility] Oxyhemoglobin, Arterial 94.4 94.0 - 97.0 % 07/31/2024 8:30 AM [facility] Carboxyhemoglobin , Arterial 0.7 % 07/31/2024 8:30 AM [facility] Comment: Nonsmokers: 0.5-1.5% COHB ?? Smokers: Variable ??but usually less than 10% ?? Toxic: 20-30% COHB ?? Lethal: Greater than 60% COHB Methemoglobin, Arterial 0.3 <=1.5 % 07/31/2024 8:30 AM [facility] Sodium, Arterial 138 135 - 145 mmol/L 07/31/2024 8:30 AM [facility] Potassium, Arterial 3.5 3.5 - 5.0 mmol/L 07/31/2024 8:30 AM [facility] Chloride, Arterial 109(H) 98 - 107 mmol/L 07/31/2024 8:30 AM [facility] Lactate, Arterial 0.8 0.5 - 2.2 mmol/L 07/31/2024 8:30 AM [facility] Fraction of Inspired Oxygen 21 % 07/31/2024 8:30 AM [facility] PF Ratio 338 Ratio 07/31/2024 8:30 AM [facility] Comment:PF ratio calculated using the non-temperature corrected pO2 result. IONIZED CALCIUM, ARTERIAL 1.08(L) 1.15 - 1.33 mmol/L 07/31/2024 8:30 AM [facility] Glucose, Arterial 86 65 - 199 mg/dL 07/31/2024 8:30 AM [facility] Comment:Glucose Concentratio n >=200 mg/dL plus symptoms is consistent with Diabetes Mellitus. Blood ARTERIAL BLOOD / Unknown 07/31/2024 8:29 AM EST 07/31/2024 8:30 AM EST Krystal Parker MD POINT OF CARE TEST O JOSH Performing Organization Address [facility]/ZIP Co de Phone Number [facility] [place] [address] * POC, GLUCOSE (07/31/2024 7:47 AM EST) Glucometer, POC 82 65 - 199 mg/dL 07/31/2024 7:53 AM [facility] Comment:Supplemental ranges: <140 mg/dL before meals <180 mg/dL all other times of the day. Blood CAPILLARY BLOOD / Unknown 07/31/2024 7:47 AM EST 07/31/2024 7:53 AM EST Krystal Parker MD POINT OF CARE TEST O JOSH Performing Organization Address [facility] Co de Phone Number [facility] [place] [address] * (ABNORMAL) CBC (with Diff) (07/31/2024 1:08 AM EST) White Blood Cell 10.25(H) 4.00 - 9.50 x10(3)/mc L 07/31/2024 1:28 AM [facility] Red Blood Cell 4.13(L) 4.58 - 5.54 x10(6)/mc L 07/31/2024 1:28 AM [facility] Hemoglobin 11.2(L) 13.7 - 16.5 g/dL 07/31/2024 1:28 AM [facility] Hematocrit 33.9(L) 40.5 - 48.5 % 07/31/2024 1:28 AM [facility] Mean Cell Volume 82.1(L) 82.9 - 93.1 fL 07/31/2024 1:28 AM [facility] Mean Cell Hemoglobin 27.1(L) 27.5 - 32.1 pg 07/31/2024 1:28 AM [facility] Mean Cell Hemoglobin Concentration 33.0 32.0 - 35.7 g/dL 07/31/2024 1:28 AM [facility] Platelet 109(L) 145 - 357 x10(3)/mc L 07/31/2024 1:28 AM [facility] Mean Platelet Volume 10.4 7.6 - 12.9 fL 07/31/2024 1:28 AM [facility] RDW Standard Deviation 45.1(H) 36.0 - 45.0 fL 07/31/2024 1:28 AM [facility] RDW coefficient of variation 15.1(H) 11.4 - 13.8 % 07/31/2024 1:28 AM [facility] NRBC% auto 0.0 % 07/31/2024 1:28 AM [facility] NRBC Absolute <0.01 <0.01 x10(3)/mc L 07/31/2024 1:28 AM [facility] Neutrophil % 79.7 % 07/31/2024 1:28 AM [facility] Neutrophil Absolute (ANC) - Automated 8.17(H) 1.70 - 6.10 x10(3)/mc L 07/31/2024 1:28 AM [facility] Lymph % 12.8 % 07/31/2024 1:28 AM [facility] Lymph Absolute 1.31 0.90 - 3.20 x10(3)/mc L 07/31/2024 1:28 AM [facility] Monocyte % 6.9 % 07/31/2024 1:28 AM [facility] Monocyte Absolute 0.71 0.30 - 0.90 x10(3)/mc L 07/31/2024 1:28 AM [facility] Eos % 0.1 % 07/31/2024 1:28 AM [facility] Eos Absolute <0.04 0.00 - 0.40 x10(3)/mc L 07/31/2024 1:28 AM EST [facility] Basophil % 0.3 % 07/31/2024 1:28 AM EST [facility] Baso Absolute <0.04 0.00 - 0.10 x10(3)/mc L 07/31/2024 1:28 AM EST [facility] Immature Gran % 0.2 % 1:28 AM EST [facility] Immature Gran Absolute <0.04 0.00 - 0.04 x10(3)/mc L 07/31/2024 1:28 AM EST [facility] Blood VENOUS BLOOD SPECIMEN / Unknown Venipuncture / Unknown 07/31/2024 1:08 AM EST 07/31/2024 1:18 AM EST Bridgette Stauffer MD HEMATOLOGY ORDERABLE S Performing Organization Address City/[facility]/ZIP Co de Phone Number [facility] [place] [address] * Magnesium (07/31/2024 1:08 AM EST) Magnesium 0.89 0.69 - 1.07 mMol/L 07/31/2024 1:46 AM EST [facility] Blood VENOUS BLOOD SPECIMEN / Unknown Venipuncture / Unknown 07/31/2024 1:08 AM EST 07/31/2024 1:18 AM EST Bridgette Stauffer MD CHEMISTRY ORDERABLES [facility] [place] [address] * (ABNORMAL) Basic Metabolic Panel (07/31/2024 1:08 AM EST) Glucose 97 65 - 199 mg/dL 07/31/2024 1:46 AM EST [facility] Comment:Glucose Concentratio n >=200 mg/dL plus symptoms is consistent with Diabetes Mellitus. Blood Urea Nitrogen 11 10 - 20 mg/dL 07/31/2024 1:46 AM [facility] Creatinine 0.96 0.80 - 1.50 mg/dL 07/31/2024 1:46 AM EST [facility] Sodium 140 135 - 145 mMol/L 07/31/2024 1:46 AM [facility] Potassium 4.1 3.5 - 5.0 mMol/L 07/31/2024 1:46 AM EST [facility] Chloride 110(H) 98 - 107 mMol/L 07/31/2024 1:46 AM [facility] Carbon Dioxide 24 22 - 31 mMol/L 07/31/2024 1:46 AM [facility] Anion Gap 6 5 - 15 mMol/L 07/31/2024 1:46 AM [facility] Calcium 7.7(L) 8.5 - 10.5 mg/dL 07/31/2024 1:46 AM [facility] Est Glomerular Filtration Rate - Male 84 mL/min/1. 73 m?? 07/31/2024 1:46 AM [facility] Comment: This patient's estimated GFR [...] MD CHEMISTRY ORDERABLES [facility] [place] [address] * (ABNORMAL) Hepatic Function Panel (07/31/2024 1:08 AM EST) Albumin 3.1(L) 3.2 - 5.2 g/dL 07/31/2024 1:46 AM [facility] Aspartate Aminotransferase 192(H) <=39 unit/L 07/31/2024 1:46 AM [facility] Alanine Aminotransferase 59(H) 0 - 55 unit/L 07/31/2024 1:46 AM [facility] Alkaline Phosphatase 46 40 - 130 unit/L 07/31/2024 1:46 AM [facility] Bilirubin, Total 0.4 <=1.3 mg/dL 07/31/2024 1:46 AM [facility] Bilirubin, Direct <0.2 0.0 - 0.3 mg/dL 07/31/2024 1:46 AM [facility] Protein, Total 5.0(L) 6.1 - 8.0 g/dL 07/31/2024 1:46 AM [facility] Blood VENOUS BLOOD SPECIMEN / Unknown Venipuncture / Unknown 07/31/2024 1:08 AM EST 07/31/2024 1:18 AM EST Krystal Parkre MD CHEMISTRY ORDERABLES Performing Organization Address City/[facility] Co de Phone Number [facility] [place] [address] * POC, GLUCOSE (07/30/2024 8:03 PM EST) Glucometer, POC 86 65 - 199 mg/dL 07/30/2024 8:03 PM [facility] Comment:Supplemental ranges: <140 mg/dL before meals <180 mg/dL all other times of the day. Blood CAPILLARY BLOOD / Unknown 07/30/2024 8:03 PM EST 07/30/2024 8:03 PM EST Krystal Parker MD POINT OF CARE TEST O RDERABLES [facility] [place] [address] * Potassium (07/30/2024 8:03 PM EST) Potassium 3.8 3.5 - 5.0 mMol/L 07/30/2024 9:13 PM EST [facility] Blood VENOUS BLOOD SPECIMEN / Unknown Venipuncture / Unknown 07/30/2024 8:03 PM EST 07/30/2024 8:22 PM EST Jay Silverio MD CHEMISTRY ORDERABL ES Performing Organization Address [facility] Co de Phone Number [facility] [place] [address] * POC, GLUCOSE (07/30/2024 6:23 PM EST) Glucometer, POC 93 65 - 199 mg/dL 07/30/2024 6:24 PM EST [facility] Comment:Supplemental ranges: <140 mg/dL before meals <180 mg/dL all other times of the day. Blood CAPILLARY BLOOD / Unknown 07/30/2024 6:23 PM EST 07/30/2024 6:24 PM EST Krystal Parker MD POINT OF CARE TEST O RDERABLES Performing Organization Address City/[facility]/ZIP Co de Phone Number [facility] [place] [address] * POC, GLUCOSE (07/30/2024 5:08 PM EST) Glucometer, POC 78 65 - 199 mg/dL 07/30/2024 5:08 PM EST [facility] Comment:Supplemental ranges: <140 mg/dL before meals <180 mg/dL all other times of the day. Blood CAPILLARY BLOOD / Unknown 07/30/2024 5:08 PM EST 07/30/2024 5:08 PM EST Krystal Parker MD POINT OF CARE TEST O RDERABLES Performing Organization Address [facility]/ZIP Co de Phone Number [facility] [place] [address] * (ABNORMAL) Phosphorus (07/30/2024 3:08 PM EST) Phosphorus 2.1(L) 2.5 - 4.5 mg/dL 07/30/2024 3:58 PM EST [facility] Blood VENOUS BLOOD SPECIMEN / Unknown Venipuncture / Unknown 07/30/2024 3:08 PM EST 07/30/2024 3:12 PM EST Jay Silverio MD CHEMISTRY ORDERABL ES Performing Organization Address [facility] Co de Phone Number [facility] [place] [address] * Magnesium (07/30/2024 3:08 PM EST) Magnesium 0.90 0.69 - 1.07 mMol/L 07/30/2024 3:58 PM EST [facility] Blood VENOUS BLOOD SPECIMEN / Unknown Venipuncture / Unknown 07/30/2024 3:08 PM EST 07/30/2024 3:12 PM EST Jay Silverio MD CHEMISTRY ORDERABL ES Performing Organization Address [facility]/ZIP Co de Phone Number [facility] [place] [address] * (ABNORMAL) Basic Metabolic Panel (07/30/2024 3:08 PM EST) Glucose 105 65 - 199 mg/dL 07/30/2024 4:17 PM EST [facility] Comment:Glucose Concentratio n >=200 mg/dL plus symptoms is consistent with Diabetes Mellitus. Blood Urea Nitrogen 13 10 - 20 mg/dL 07/30/2024 4:17 PM EST [facility] Creatinine 1.01 0.80 - 1.50 mg/dL 07/30/2024 4:17 PM EST [facility] Sodium 141 135 - 145 mMol/L 07/30/2024 4:17 PM EST [facility] Potassium 3.4(L) 3.5 - 5.0 mMol/L 07/30/2024 4:17 PM [facility] Chloride 109(H) 98 - 107 mMol/L 07/30/2024 4:17 PM [facility] Carbon Dioxide 21(L) 22 - 31 mMol/L 07/30/2024 4:17 PM [facility] Anion Gap 11 5 - 15 mMol/L 07/30/2024 4:17 PM [facility] Calcium 7.9(L) 8.5 - 10.5 mg/dL 07/30/2024 4:17 PM [facility] Est Glomerular Filtration Rate - Male 79 mL/min/1. 73 m?? 07/30/2024 4:17 PM [facility] Comment: This patient's estimated GFR [...] EST Jay Silverio MD CHEMISTRY ORDERABL ES [facility] [place] [address] * ECHO LMTD W CONTRAST W LMTD SPEC DOPP COLOR DOPP (07/30/2024 11:42 AM EST) Anatomical Region Laterality Modality Cardiac Other 07/30/2024 10:2 2 AM EST Narrative 07/30/2024 12:34 PM EST 1 [place] [address] ? Echocardiogram Report Name: KOREY MONTOYA ? Study Date: 07/30/2024 10:22 AMBP: 124/66 mmHg : 1950 ? Height: 168 cm ? Account: [id number] Age: 74 yrs ? Weight: 65 kg Gender: Male ?BSA: 1.7 m2 Ordering Physician: Jay Silverio MD Referring Physician: CHAPARRO FERRERA Performed By: OMERO Millan Reason For Study: ST elevation myocardial infarction involving left anterior descending (LAD) coronary artery Interpreting Fellow: Ivan Hernandez. Exam Location: [facility]. Interpretation Summary Left ventricle is severely [...] Compared to the overnight study by the irrigation technician fellow the impella position is stable. 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 Procedure Limited - 78995. Image enhancement Definity was used for both [...] ?TAPSE_phl: 1.8 cm Doppler MV E max acrlos: 55.5 cm/sec MV A max carlos: 46.1 [...] Note Kathleen Banda MD - 07/30/2024 1 [place] [address] Echocardiogram Report Name: KOREY MONTOYA Study Date: 410:22 AMBP: 124/66 mmHg : 1950 Height: 168 cm Account: [id number] Age: 74 yrs Weight: 65 kg Gender: Male BSA: 1.7 m2 Ordering Physician: Jay Silverio MD Referring Physician: CHAPARRO FERRERA Performed By: OMERO Millan Reason For Study: ST elevation myocardial infarction involving leftanterior descending (LAD) coronary artery Interpreting Fellow: Ivan Hernandez. Exam Location: [facility]. Interpretation Summary Left ventricle is severely [...] Compared to the overnight study by the irrigation technician fellow the impella positionis stable. The global left ventricular systolic function has improvedpredominantly via recruitment outside the LAD territory which remains akinetic. Procedure Limited - 44376. Image enhancement Definity was used for both [...] - 199 mg/dL 07/30/2024 11:17 AM EST [facility] Comment:Supplemental ranges: <140 mg/dL before meals <180 mg/dL all other times of the day. Blood CAPILLARY BLOOD / Unknown 07/30/2024 11:17 AM EST 07/30/2024 11:17 AM EST Jay Silverio MD POINT OF CARE TEST ORDERABLES [facility] [place] [address] * (ABNORMAL) Blood Gas, Arterial POC (07/30/2024 8:16 AM EST) pH, Arterial 7.44 7.35 - 7.45 07/30/2024 8:17 AM EST [facility] PCO2, Arterial 29(L) 35 - 45 mmHg 07/30/2024 8:17 AM EST [facility] PO2, Arterial 109(H) 85 - 104 mmHg 07/30/2024 8:17 AM EST [facility] Bicarbonate, Arterial 19.4(L) 20.0 - 26.0 mmol/L 07/30/2024 8:17 AM [facility] Base Excess, Arterial -4.7(L) -3.0 - 3.0 mmol/L 07/30/2024 8:17 AM [facility] Hemoglobin, Arterial 12.2(L) 13.7 - 16.5 g/dL 07/30/2024 8:17 AM [facility] Oxyhemoglobin, Arterial 97.1(H) 94.0 - 97.0 % 07/30/2024 8:17 AM [facility] Carboxyhemoglob in, Arterial 1.0 % 07/30/2024 8:17 AM [facility] Comment: Nonsmokers: 0.5-1.5% COHB ?? Smokers: Variable ??but usually less than 10% ?? Toxic: 20-30% COHB ?? Lethal: Greater than 60% COHB Methemoglobin, Arterial 0.1 <=1.5 % 07/30/2024 8:17 AM [facility] Sodium, Arterial 132(L) 135 - 145 mmol/L 07/30/2024 8:17 AM [facility] Potassium, Arterial 3.9 3.5 - 5.0 mmol/L 07/30/2024 8:17 AM [facility] Chloride, Arterial 105 98 - 107 mmol/L 07/30/2024 8:17 AM [facility] Lactate, Arterial 1.2 0.5 - 2.2 mmol/L 07/30/2024 8:17 AM [facility] Fraction of Inspired Oxygen 21 % 07/30/2024 8:17 AM [facility] PF Ratio 519 Ratio 07/30/2024 8:17 AM [facility] Comment:PF ratio calculated using the non-temperature corrected pO2 result. IONIZED CALCIUM, ARTERIAL 1.15 1.15 - 1.33 mmol/L 07/30/2024 8:17 AM [facility] Blood ARTERIAL BLOOD / Unknown 07/30/2024 8:16 AM EST 07/30/2024 8:17 AM EST Jay Silverio MD POINT OF CARE TEST ORDERABLES [facility] [place] [address] * (ABNORMAL) Troponin - Single (07/30/2024 8:09 [...] value can be found in the [facility] Laboratory Test Catalog Troponin - [email or web address] Reference: Fourth Skippers Definition of Myocardial Infarction. Journal of the [employer] 2018;72:2190-6660 Blood VENOUS BLOOD SPECIMEN / Unknown Venipuncture / Unknown 07/30/2024 8:09 AM EST 07/30/2024 8:26 AM EST Jay Silverio MD CHEMISTRY ORDERABL ES Performing Organization Address City/[facility]/ZIP Co de Phone Number [facility] [place] [address] * POC, GLUCOSE (07/30/2024 7:40 AM EST) [facility] Glucometer, POC 111 65 - 199 mg/dL 07/30/2024 7:40 AM [facility] Comment:Supplemental ranges: <140 mg/dL before meals <180 mg/dL all other times of the day. Blood CAPILLARY BLOOD / Unknown 07/30/2024 7:40 AM EST 07/30/2024 7:40 AM EST Jay Silverio MD POINT OF CARE TEST ORDERABLES [facility] [place] [address] * (ABNORMAL) CBC (with Diff) (07/30/2024 2:11 AM EST) [facility] White Blood Cell 11.25(H) 4.00 - 9.50 x10(3)/mc L 07/30/2024 2:33 AM [facility] Red Blood Cell 4.50(L) 4.58 - 5.54 x10(6)/mc L 07/30/2024 2:33 AM [facility] Hemoglobin 12.2(L) 13.7 - 16.5 g/dL 07/30/2024 2:33 AM [facility] Hematocrit 37.1(L) 40.5 - 48.5 % 07/30/2024 2:33 AM [facility] Mean Cell Volume 82.4(L) 82.9 - 93.1 fL 07/30/2024 2:33 AM [facility] Mean Cell Hemoglobin 27.1(L) 27.5 - 32.1 pg 07/30/2024 2:33 AM [facility] Mean Cell Hemoglobin Concentration 32.9 32.0 - 35.7 g/dL 07/30/2024 2:33 AM [facility] Platelet 166 145 - 357 x10(3)/mc L 07/30/2024 2:33 AM [facility] Mean Platelet Volume 10.6 7.6 - 12.9 fL 07/30/2024 2:33 AM [facility] RDW Standard Deviation 44.6 36.0 - 45.0 fL 07/30/2024 2:33 AM [facility] RDW coefficient of variation 14.6(H) 11.4 - 13.8 % 07/30/2024 2:33 AM [facility] NRBC% auto 0.0 % 07/30/2024 2:33 AM [facility] NRBC Absolute <0.01 <0.01 x10(3)/mc L 07/30/2024 2:33 AM [facility] Neutrophil % 88.9 % 07/30/2024 2:33 AM [facility] Neutrophil Absolute (ANC) - Automated 10.00(H) 1.70 - 6.10 x10(3)/mc L 07/30/2024 2:33 AM [facility] Lymph % 5.1 % 07/30/2024 2:33 AM [facility] Lymph Absolute 0.57(L) 0.90 - 3.20 x10(3)/mc L 07/30/2024 2:33 AM [facility] Monocyte % 5.4 % 07/30/2024 2:33 AM [facility] Monocyte Absolute 0.61 0.30 - 0.90 x10(3)/mc L 07/30/2024 2:33 AM [facility] Eos % 0.0 % 07/30/2024 2:33 AM [facility] Eos Absolute <0.04 0.00 - 0.40 x10(3)/mc L 07/30/2024 2:33 AM [facility] Basophil % 0.2 % 07/30/2024 2:33 AM [facility] Baso Absolute <0.04 0.00 - 0.10 x10(3)/mc L 07/30/2024 2:33 AM [facility] Immature Gran % 0.4 % 2:33 AM EST [facility] Immature Gran Absolute 0.05(H) 0.00 - 0.04 x10(3)/mc L 07/30/2024 2:33 AM [facility] Blood VENOUS BLOOD SPECIMEN / Unknown Venipuncture / Unknown 07/30/2024 2:11 AM EST 07/30/2024 2:22 AM EST Bridgette Stauffer MD HEMATOLOGY ORDERABLE S Performing Organization Address City/[facility]/ZIP Co de Phone Number [facility] [place] [address] * Magnesium (07/30/2024 2:11 AM EST) Pathologist [facility] Magnesium 1.01 0.69 - 1.07 mMol/L 07/30/2024 2:51 AM [facility] Blood VENOUS BLOOD SPECIMEN / Unknown Venipuncture / Unknown 07/30/2024 2:11 AM EST 07/30/2024 2:22 AM EST Bridgette Stauffer MD CHEMISTRY ORDERABLES Performing Organization Address City/[facility] Co de Phone Number [facility] [place] [place] [address] * (ABNORMAL) Basic Metabolic Panel (07/30/2024 2:11 AM EST) Pathologist [facility] Glucose 190 65 - 199 mg/dL 07/30/2024 2:51 AM [facility] Comment:Glucose Concentratio n >=200 mg/dL plus symptoms is consistent with Diabetes Mellitus. Blood Urea Nitrogen 15 10 - 20 mg/dL 07/30/2024 2:51 AM [facility] Creatinine 0.88 0.80 - 1.50 mg/dL 07/30/2024 2:51 AM [facility] Sodium 135 135 - 145 mMol/L 07/30/2024 2:51 AM [facility] Potassium 4.9 3.5 - 5.0 mMol/L 07/30/2024 2:51 AM EST [facility] Chloride 105 98 - 107 mMol/L 07/30/2024 2:51 AM [facility] Carbon Dioxide 19(L) 22 - 31 mMol/L 07/30/2024 2:51 AM [facility] Anion Gap 11 5 - 15 mMol/L 07/30/2024 2:51 AM [facility] Calcium 7.7(L) 8.5 - 10.5 mg/dL 07/30/2024 2:51 AM [facility] Est Glomerular Filtration Rate - Male 91 mL/min/1. 73 m?? 07/30/2024 2:51 AM [facility] Comment: This patient's estimated GFR [...] MD CHEMISTRY ORDERABLES [facility] [place] [address] * (ABNORMAL) Cooximetry, POC (07/30/2024 1:00 AM EST) pO2, Coox 28 mmHg 07/30/2024 1:03 AM [facility] Hemoglobin, Coox 12.7(L) 13.7 - 16.5 g/dL 07/30/2024 1:03 AM [facility] Oxyhemoglobin, Coox 54.9 % 07/30/2024 1:03 AM [facility] Carboxyhemoglo bin, Coox 1.0 % 07/30/2024 1:03 AM [facility] Comment: Nonsmokers: 0.5-1.5% COHB ?? Smokers: Variable ??but usually less than 10% ?? Toxic: 20-30% COHB ?? Lethal: Greater than 60% COHB Methemoglobin, Coox 0.0 <=1.5 % 07/30/2024 1:03 AM [facility] Blood (Mixed Venous) 07/30/2024 1:00 AM EST 07/30/2024 1:03 AM EST Jay Silverio MD POINT OF CARE TEST ORDERABLES Performing Organization Address City/State/[facility] Co de Phone Number [facility] [place] [address] * (ABNORMAL) Blood Gas, Arterial POC (07/30/2024 12:57 AM EST) pH, Arterial 7.38 7.35 - 7.45 07/30/2024 12:58 AM [facility] PCO2, Arterial 34(L) 35 - 45 mmHg 07/30/2024 12:58 AM [facility] PO2, Arterial 141(H) 85 - 104 mmHg 07/30/2024 12:58 AM [facility] Bicarbonate, Arterial 19.5(L) 20.0 - 26.0 mmol/L 07/30/2024 12:58 AM [facility] Base Excess, Arterial -5.6(L) -3.0 - 3.0 mmol/L 07/30/2024 12:58 AM [facility] Hemoglobin, Arterial 13.0(L) 13.7 - 16.5 g/dL 07/30/2024 12:58 AM [facility] Oxyhemoglobin, Arterial 98.4(H) 94.0 - 97.0 % 07/30/2024 12:58 AM [facility] Carboxyhemoglobin , Arterial 0.4 % 07/30/2024 12:58 AM [facility] Comment: Nonsmokers: 0.5-1.5% COHB ?? Smokers: Variable ??but usually less than 10% ?? Toxic: 20-30% COHB ?? Lethal: Greater than 60% COHB Methemoglobin, Arterial 0.1 <=1.5 % 07/30/2024 12:58 AM [facility] Sodium, Arterial 130(L) 135 - 145 mmol/L 07/30/2024 12:58 AM [facility] Potassium, Arterial 4.5 3.5 - 5.0 mmol/L 07/30/2024 12:58 AM [facility] Chloride, Arterial 104 98 - 107 mmol/L 07/30/2024 12:58 AM [facility] Lactate, Arterial 1.3 0.5 - 2.2 mmol/L 07/30/2024 12:58 AM [facility] Flow Rate 2.0 L/min 07/30/2024 12:58 AM [facility] IONIZED CALCIUM, ARTERIAL 1.12(L) 1.15 - 1.33 mmol/L 07/30/2024 12:58 AM [facility] Glucose, Arterial 184 65 - 199 mg/dL 07/30/2024 12:58 AM [facility] Comment:Glucose Concentratio n >=200 mg/dL plus symptoms is consistent with Diabetes Mellitus. Blood ARTERIAL BLOOD / Unknown 07/30/2024 12:57 AM EST 07/30/2024 12:58 AM EST Jay Silverio MD POINT OF CARE TEST ORDERABLES [facility] [place] [address] * (ABNORMAL) Troponin - Single (07/29/2024 10:31 PM EST) Troponin-T, High Sensitivity >10,000(H ) <=22 ng/L 07/29/2024 11:03 PM EST [facility] Comment: [...] value can be found in the [facility] Laboratory Test Catalog Troponin - [email or web address] Reference: [employer] Skippers Definition of Myocardial Infarction. Journal of the [place] [employer] 2018;72:1895-6295 Blood VENOUS BLOOD SPECIMEN / Unknown Venipuncture / Unknown 07/29/2024 10:31 PM EST 07/29/2024 10:36 PM EST Yrn Ward MD CHEMISTRY ORDERABL ES [facility] [place] [address] * Potassium (07/29/2024 8:11 PM EST) Potassium 4.1 3.5 - 5.0 mMol/L 07/29/2024 8:52 PM EST [facility] Blood VENOUS BLOOD SPECIMEN / Unknown Venipuncture / Unknown 07/29/2024 8:11 PM EST 07/29/2024 8:16 PM EST Jay Silverio MD CHEMISTRY ORDERABL ES [facility] [place] [address] * (ABNORMAL) Troponin - Single (07/29/2024 8:11 [...] value can be found in the [facility] Laboratory Test Catalog Troponin - [email or web address] Reference: [employer] Skippers Definition of Myocardial Infarction. Journal of the [place] [employer] 2018;72:0902-1976 Blood VENOUS BLOOD SPECIMEN / Unknown Venipuncture / Unknown 07/29/2024 8:11 PM EST 07/29/2024 8:16 PM EST Jay Silverio MD CHEMISTRY ORDERABL ES [facility] [place] [address] * (ABNORMAL) Phosphorus (07/29/2024 8:11 PM EST) Phosphorus 2.1(L) 2.5 - 4.5 mg/dL 07/29/2024 8:52 PM EST [facility] Blood VENOUS BLOOD SPECIMEN / Unknown Venipuncture / Unknown 07/29/2024 8:11 PM EST 07/29/2024 8:16 PM EST Jay Silverio MD CHEMISTRY ORDERABL ES Performing Organization Address City/[facility]/ZIP Co de Phone Number [facility] [place] [address] * POC, GLUCOSE (07/29/2024 8:09 PM EST) Glucometer, POC 142 65 - 199 mg/dL 07/29/2024 8:09 PM EST [facility] Comment:Supplemental ranges: <140 mg/dL before meals <180 mg/dL all other times of the day. Blood CAPILLARY BLOOD / Unknown 07/29/2024 8:09 PM EST 07/29/2024 8:09 PM EST Jay Silverio MD POINT OF CARE TEST ORDERABLES Performing Organization Address City/[facility]/ZIP Co de Phone Number [facility] [place] [address] * ABORH RECHECK (07/29/2024 6:43 PM EST) ABORH Recheck AB POSITIVE 07/29/2024 10:13 PM EST [facility] Blood VENOUS BLOOD SPECIMEN / Unknown Venipuncture / Unknown 07/29/2024 6:43 PM EST 07/29/2024 7:15 PM EST Jay Silverio MD BLOOD BANK LAB ORD ERABLES Performing Organization Address City/[facility]/ZIP Co de Phone Number [facility] [place] [address] * POC, GLUCOSE (07/29/2024 5:57 PM EST) Glucometer, POC 166 65 - 199 mg/dL 07/29/2024 5:57 PM EST [facility] Comment:Supplemental ranges: <140 mg/dL before meals <180 mg/dL all other times of the day. Blood CAPILLARY BLOOD / Unknown 07/29/2024 5:57 PM EST 07/29/2024 5:57 PM EST Jay Silverio MD POINT OF CARE TEST ORDERABLES Performing Organization Address City/[facility]/ZIP Co de Phone Number [facility] [place] [address] * Type and screen ([facility]/CGP/MAGALIE) (07/29/2024 5:56 PM EST) [facility] ABORH Type AB POSITIVE 07/29/2024 9:44 PM EST [facility] PATIENT HISTORY Not Found 07/29/2024 9:44 PM EST [facility] Expires at [id number] on: 08/01/2024 07/29/2024 9:44 PM EST [facility] ANTIBODY SCREEN AUTOMATED Negative 07/29/2024 9:44 PM EST [facility] T&S only valid at [facility] 07/29/2024 9:44 PM EST [facility] Blood VENOUS BLOOD SPECIMEN / Unknown Venipuncture / Unknown 07/29/2024 5:56 PM EST 07/29/2024 6:07 PM EST Narrative [facility] - 07/29/2024 9:44 PM EST This Type and Screen result is only valid at the [facility] Jay Silverio MD BLOOD BANK LAB ORD ERABLES Performing Organization Address City/[facility]/ZIP Co de Phone Number [facility] [place] [address] * (ABNORMAL) Troponin - Single (07/29/2024 4:52 PM EST) [facility] Troponin-T, High Sensitivity >10,000(H ) <=22 ng/L [...] value can be found in the [facility] Laboratory Test Catalog Troponin - [email or web address]/catalogs/565/[email or web address] Reference: Fourth Skippers Definition of Myocardial Infarction. Journal of the [place] [employer] 2018;72:7751-1363 Blood VENOUS BLOOD SPECIMEN / Unknown Venipuncture / Unknown 07/29/2024 4:52 PM EST 07/29/2024 4:57 PM EST Jay Silverio MD CHEMISTRY ORDERABL ES Performing Organization Address City/State/[facility] [place] [address] * EKG 12 Lead (07/29/2024 4:21 PM EST) Ventricular rate 72 BPM MUSE SYSTEM Atrial Rate 72 BPM MUSE SYSTEM P-R Interval 168 ms MUSE SYSTEM QRS Duration 82 ms MUSE SYSTEM Q-T Interval 392 ms MUSE SYSTEM QTC Calculated (Bezet) 429 ms MUSE SYSTEM Calculated P [place] 71 degrees MUSE SYSTEM Calculated R [place] 77 degrees MUSE SYSTEM Calculated T [place] 28 degrees MUSE SYSTEM INTERPRETATION Sinus rhythm [...] 7.37 7.35 - 7.45 07/29/2024 4:22 PM [facility] PCO2, Arterial 36 35 - 45 mmHg 07/29/2024 4:22 PM [facility] PO2, Arterial 71(L) 85 - 104 mmHg 07/29/2024 4:22 PM [facility] Bicarbonate, Arterial 20.4 20.0 - 26.0 mmol/L 07/29/2024 4:22 PM [facility] Base Excess, Arterial -4.8(L) -3.0 - 3.0 mmol/L 07/29/2024 4:22 PM [facility] Hemoglobin, Arterial 12.2(L) 13.7 - 16.5 g/dL 07/29/2024 4:22 PM [facility] Oxyhemoglobin, Arterial 93.8(L) 94.0 - 97.0 % 07/29/2024 4:22 PM [facility] Carboxyhemoglobin , Arterial 0.5 % 07/29/2024 4:22 PM [facility] Comment: Nonsmokers: 0.5-1.5% COHB ?? Smokers: Variable ??but usually less than 10% ?? Toxic: 20-30% COHB ?? Lethal: Greater than 60% COHB Methemoglobin, Arterial 0.3 <=1.5 % 07/29/2024 4:22 PM [facility] Sodium, Arterial 134(L) 135 - 145 mmol/L 07/29/2024 4:22 PM [facility] Potassium, Arterial 4.2 3.5 - 5.0 mmol/L 07/29/2024 4:22 PM [facility] Chloride, Arterial 107 98 - 107 mmol/L 07/29/2024 4:22 PM [facility] Lactate, Arterial 1.5 0.5 - 2.2 mmol/L 07/29/2024 4:22 PM [facility] Fraction of Inspired Oxygen 21 % 07/29/2024 4:22 PM [facility] PF Ratio 338 Ratio 07/29/2024 4:22 PM [facility] Comment:PF ratio calculated using the non-temperature corrected pO2 result. IONIZED CALCIUM, ARTERIAL 1.12(L) 1.15 - 1.33 mmol/L 07/29/2024 4:22 PM [facility] Glucose, Arterial 181 65 - 199 mg/dL 07/29/2024 4:22 PM [facility] Comment:Glucose Concentratio n >=200 mg/dL plus symptoms is consistent with Diabetes Mellitus. Blood ARTERIAL BLOOD / Unknown 07/29/2024 4:21 PM EST 07/29/2024 4:22 PM EST Jay Silverio MD POINT OF CARE TEST ORDERABLES Performing Organization Address City/[facility]/ZIP Co de Phone Number [facility] [place] [address] * POC, GLUCOSE (07/29/2024 4:19 PM EST) [facility] Signature Glucometer, POC 185 65 - 199 mg/dL 07/29/2024 4:19 PM [facility] Comment:Supplemental ranges: <140 mg/dL before meals <180 mg/dL all other times of the day. Blood CAPILLARY BLOOD / Unknown 07/29/2024 4:19 PM EST 07/29/2024 4:19 PM EST Jay Silverio MD POINT OF CARE TEST ORDERABLES [facility] [place] [address] * Blood culture (07/29/2024 4:08 PM EST) Blood Culture No growth at 120 hours 08/03/2024 5:01 PM EST [facility] Blood VENOUS BLOOD SPECIMEN / Unknown Venipuncture / Unknown 07/29/2024 4:08 PM EST 07/29/2024 4:15 PM EST Jay Silverio MD MICROBIOLOGY - BLO OD ORDERABLES Performing Organization Address City/[facility] Co de Phone Number [facility] [place] [address] * Blood culture (07/29/2024 4:08 PM EST) Blood Culture No growth at 120 hours 08/03/2024 5:01 PM EST [facility] Blood VENOUS BLOOD SPECIMEN / Unknown Venipuncture / Unknown 07/29/2024 4:08 PM EST 07/29/2024 4:26 PM EST Jay Silverio MD MICROBIOLOGY - BLO OD ORDERABLES Performing Organization Address [facility] Co de Phone Number [facility] [place] [address] * XR Chest One View (07/29/2024 2:30 PM EST) WORKSTATION ID [id number] RAD Anatomical Region Laterality Modality Chest N/A [...] attendant that requested your imaging first. ? Electronically signed by: Chris Candelaria MD, [facility] ([phone]), at 07/29/2024 3:21 PM Narrative 07/29/2024 3:21 [...] MD HEMATOLOGY ORDERABLE S Performing Organization Address City/[facility]/ZIP Co de Phone Number [facility] [place] [address] * (ABNORMAL) Prothrombin Time (07/29/2024 2:03 PM [...] MD HEMATOLOGY ORDERABLE S Performing Organization Address City/[facility]/ZIP Co de Phone Number [facility] [place] [address] * CRP, acute inflammation (07/29/2024 2:03 PM EST) C-Reactive Protein <3.0 <=4.9 mg/L 07/29/2024 2:52 PM EST [facility] Blood VENOUS BLOOD SPECIMEN / Unknown Venipuncture / Unknown 07/29/2024 2:03 PM EST 07/29/2024 2:14 PM EST Vahe Marvin MD CHEMISTRY ORDERABLES [facility] [place] [address] * Lipid Panel (Reflex Direct LDL) (07/29/2024 2:03 PM EST) [facility] Signature Cholesterol, Total 133 mg/dL 07/29/2024 2:52 PM [facility] Comment: Desirable: < 200 mg/dL Borderline High: 200 - 239 mg/dL High: > or = 240 mg/dL Triglyceride 45 mg/dL 07/29/2024 2:52 PM [facility] Comment: Normal: <150 mg/dL Borderline High: 150-199 mg/dL High: 200-499 mg/dL Very High: > or =500 mg/dL HDL Cholesterol 58 mg/dL 2:52 PM [facility] Comment:Males: High Risk: <4 0 mg/dL LDL Cholesterol 64 mg/dL 4 2:52 PM [facility] Comment: Desirable: <100 mg/dL Above Desirable: 100-129 mg/dL Borderline High: 130-159 mg/dL High: 160-189 mg/dL Very High: > or =190 mg/dL Note: LDL calculation updated to the NIH LDL formula as of 04/15/2024 Non-HDL Cholesterol 75 mg/dL 07/29/2024 2:52 PM [facility] Comment: Desirable: <130 mg/dL Above Desirable: 130-159 mg/dL Borderline High: 160-189 mg/dL High: 190-219 mg/dL Very High: > or = 220 mg/dL Blood VENOUS BLOOD SPECIMEN / Unknown Venipuncture / Unknown 07/29/2024 2:03 PM EST 07/29/2024 2:14 PM EST Narrative [facility] - 07/29/2024 2:52 PM [...] ACC/AHA Guidelines (most recently Rolf et al. [facility] 06/15/22): * For individuals with [...] Marvin MD CHEMISTRY ORDERABLES Performing Organization Address City/[facility]/ZIP Co de Phone Number [facility] [place] [address] * TSH [place] (07/29/2024 2:03 PM EST) Thyroid Stimulating Hormone 0.70 0.27 - 4.20 mcIU/mL 07/29/2024 2:52 PM EST [facility] Blood VENOUS BLOOD SPECIMEN / Unknown Venipuncture / Unknown 07/29/2024 2:03 PM EST 07/29/2024 2:14 PM EST Vahe Marvin MD CHEMISTRY ORDERABLES Performing Organization Address [facility] Co de Phone Number [facility] [place] [address] * Hemoglobin A1c (07/29/2024 2:03 PM EST) [...] red blood cell turnover may not be pest control service representative of glycemic control. Reference Interval: [...] 2:03 PM EST 07/29/2024 2:14 PM EST formerly [facility] - 07/29/2024 2:41 PM EST Estimated average glucose (eAG) is calculated from the equation described in: Quinten ALVES, Rikki J, [place] R, et al. ??Translating the A1C assay into estimated average glucose values. ??Diabetes Care 2008:31(8):0068-9182. Additional resources are available on the ADA website (diabetes.org). Vahe Marvin MD CHEMISTRY ORDERABLES [facility] [place] [address] * (ABNORMAL) CBC (with Diff) (07/29/2024 2:03 PM EST) White Blood Cell 19.50(H) 4.00 - 9.50 x10(3)/mc L 07/29/2024 2:18 PM EST [facility] Red Blood Cell 4.81 4.58 - 5.54 x10(6)/mc L 07/29/2024 2:18 PM [facility] Hemoglobin 13.1(L) 13.7 - 16.5 g/dL 07/29/2024 2:18 PM [facility] Hematocrit 40.1(L) 40.5 - 48.5 % 07/29/2024 2:18 PM [facility] Mean Cell Volume 83.4 82.9 - 93.1 fL 07/29/2024 2:18 PM [facility] Mean Cell Hemoglobin 27.2(L) 27.5 - 32.1 pg 07/29/2024 2:18 PM [facility] Mean Cell Hemoglobin Concentration 32.7 32.0 - 35.7 g/dL 07/29/2024 2:18 PM [facility] Platelet 236 145 - 357 x10(3)/mc L 07/29/2024 2:18 PM [facility] Mean Platelet Volume 10.6 7.6 - 12.9 fL 07/29/2024 2:18 PM [facility] RDW Standard Deviation 43.7 36.0 - 45.0 fL 07/29/2024 2:18 PM [facility] RDW coefficient of variation 14.3(H) 11.4 - 13.8 % 07/29/2024 2:18 PM [facility] NRBC% auto 0.0 % 07/29/2024 2:18 PM [facility] NRBC Absolute <0.01 <0.01 x10(3)/mc L 07/29/2024 2:18 PM [facility] Neutrophil % 93.6 % 07/29/2024 2:18 PM [facility] Neutrophil Absolute (ANC) - Automated 18.28(H) 1.70 - 6.10 x10(3)/mc L 07/29/2024 2:18 PM [facility] Lymph % 2.7 % 07/29/2024 2:18 PM [facility] Lymph Absolute 0.52(L) 0.90 - 3.20 x10(3)/mc L 07/29/2024 2:18 PM [facility] Monocyte % 2.9 % 07/29/2024 2:18 PM [facility] Monocyte Absolute 0.56 0.30 - 0.90 x10(3)/mc L 07/29/2024 2:18 PM [facility] Eos % 0.0 % 07/29/2024 2:18 PM [facility] Eos Absolute <0.04 0.00 - 0.40 x10(3)/mc L 07/29/2024 2:18 PM [facility] Basophil % 0.3 % 07/29/2024 2:18 PM [facility] Baso Absolute 0.05 0.00 - 0.10 x10(3)/mc L 07/29/2024 2:18 PM [facility] Immature Gran % 0.5 % 2:18 PM [facility] Immature Gran Absolute 0.09(H) 0.00 - 0.04 x10(3)/mc L 07/29/2024 2:18 PM EST [facility] Blood VENOUS BLOOD SPECIMEN / Unknown Venipuncture / Unknown 07/29/2024 2:03 PM EST 07/29/2024 2:13 PM EST Vahe Marvin MD HEMATOLOGY ORDERABLE S Performing Organization Address City/[facility]/ZIP Co de Phone Number [facility] [place] [address] * Phosphorus (07/29/2024 2:03 PM EST) Phosphorus 2.5 2.5 - 4.5 mg/dL 07/29/2024 2:52 PM EST [facility] Blood VENOUS BLOOD SPECIMEN / Unknown Venipuncture / Unknown 07/29/2024 2:03 PM EST 07/29/2024 2:14 PM EST Vahe Marvin MD CHEMISTRY ORDERABLES Performing Organization Address [facility] Co de Phone Number [facility] [place] [address] * Magnesium (07/29/2024 2:03 PM EST) Magnesium 0.70 0.69 - 1.07 mMol/L 07/29/2024 2:52 PM EST [facility] Blood VENOUS BLOOD SPECIMEN / Unknown Venipuncture / Unknown 07/29/2024 2:03 PM EST 07/29/2024 2:14 PM EST Vahe Marvin MD CHEMISTRY ORDERABLES Performing Organization Address [facility] Co de Phone Number [facility] [place] [address] * (ABNORMAL) Comprehensive metabolic panel (07/29/2024 2:03 PM EST) Glucose 243(H) 65 - 199 mg/dL 07/29/2024 3:11 PM [facility] Comment:Glucose Concentratio n >=200 mg/dL plus symptoms is consistent with Diabetes Mellitus. Blood Urea Nitrogen 13 10 - 20 mg/dL 07/29/2024 3:11 PM [facility] Creatinine 0.88 0.80 - 1.50 mg/dL 07/29/2024 3:11 PM [facility] Sodium 138 135 - 145 mMol/L 07/29/2024 3:11 PM [facility] Potassium 3.6 3.5 - 5.0 mMol/L 07/29/2024 3:11 PM [facility] Chloride 104 98 - 107 mMol/L 07/29/2024 3:11 PM [facility] Carbon Dioxide 19(L) 22 - 31 mMol/L 07/29/2024 3:11 PM [facility] Anion Gap 15 5 - 15 mMol/L 07/29/2024 3:11 PM [facility] Calcium 8.0(L) 8.5 - 10.5 mg/dL 07/29/2024 3:11 PM [facility] Protein, Total 6.0(L) 6.1 - 8.0 g/dL 07/29/2024 3:11 PM [facility] Albumin 3.6 3.2 - 5.2 g/dL 07/29/2024 3:11 PM [facility] Aspartate Aminotransferase 07/29/2024 3:11 PM [facility] Comment:Unable to report due to hemolysis. Alanine Aminotransferase 56(H) 0 - 55 unit/L 07/29/2024 3:11 PM [facility] Alkaline Phosphatase 58 40 - 130 unit/L 07/29/2024 3:11 PM [facility] Bilirubin, Total 0.5 <=1.3 mg/dL 07/29/2024 3:11 PM [facility] Est Glomerular Filtration Rate - Male 91 mL/min/1. 73 m?? 07/29/2024 3:11 PM EST [facility] Comment: [...] MD CHEMISTRY ORDERABLES [facility] [place] [address] * (ABNORMAL) Troponin - Single (07/29/2024 2:03 [...] value can be found in the [facility] Laboratory Test Catalog Troponin - https://[email or web address].org/catalogs/565/files/[email or web address] Reference: Fourth Skippers Definition of Myocardial Infarction. Journal of the [place] College [employer] 2018;72:2638-4681 Blood VENOUS BLOOD SPECIMEN / Unknown Venipuncture / Unknown 07/29/2024 2:03 PM EST 07/29/2024 2:14 PM EST Vahe Marvin MD CHEMISTRY ORDERABLES [facility] [place] [address] * (ABNORMAL) Blood Gas, Venous POC (07/29/2024 2:01 PM EST) pH, Venous 7.30(L) 7.32 - 7.42 07/29/2024 2:02 PM EST [facility] PCO2, Venous 42 38 - 58 mmHg 07/29/2024 2:02 PM [facility] PO2, Venous 39 16 - 65 mmHg 07/29/2024 2:02 PM [facility] Bicarbonate, Venous 20.1(L) 22 - 31 mmol/L 07/29/2024 2:02 PM [facility] Base Excess, Venous -6.4(L) 1.9 - 4.5 mmol/L 07/29/2024 2:02 PM [facility] Hemoglobin, Venous 14.2 13.7 - 16.5 g/dL 07/29/2024 2:02 PM [facility] Oxyhemoglobin, Venous 69.3 % 07/29/2024 2:02 PM [facility] Carboxyhemoglobin , Venous 0.8 % 07/29/2024 2:02 PM [facility] Comment: Nonsmokers: 0.5-1.5% COHB ?? Smokers: Variable ??but usually less than 10% ?? Toxic: 20-30% COHB ?? Lethal: Greater than 60% COHB Methemoglobin, Venous 0.3 <=1.5 % 07/29/2024 2:02 PM EST [facility] Sodium, Venous 137 135 - 145 mmol/L 07/29/2024 2:02 PM EST [facility] Potassium, Venous 3.6 3.5 - 5.0 mmol/L 07/29/2024 2:02 PM EST [facility] Chloride, Venous 103 98 - 107 mmol/L 07/29/2024 2:02 PM EST [facility] Glucose, Venous 229(H) 65 - 199 mg/dL 07/29/2024 2:02 PM EST [facility] Comment:Glucose Concentratio n >=200 mg/dL plus symptoms is consistent with Diabetes Mellitus. Lactate, Venous 3.1(H) 0.5 - 2.2 mmol/L 07/29/2024 2:02 PM [facility] Ionized Calcium, Venous 1.11(L) 1.15 - 1.33 mmol/L 07/29/2024 2:02 PM EST [facility] Blood VENOUS BLOOD SPECIMEN / Unknown 07/29/2024 2:01 PM EST 07/29/2024 2:02 PM EST Vahe Marvin MD POINT OF CARE TEST O RDERABLES Performing Organization Address City/State/[facility] Co de Phone Number [facility] [place] [address] * CARDIAC CATHETERIZATION (07/29/2024 1:20 PM EST) Anatomical Region Laterality Modality Other Narrative 07/29/2024 2:02 PM EST ?[facility] ? Cardiac Catheterization/Intervention Report ? Patient Name: Korey Montoya. ? Procedure Date: 07/29/2024 ? A #: [id number] ? Primary Physician: Shavonne, Vahe S ? Case #: [id number] ? File Name: [id number] ? Catheterization Order Number: [id number] ? [facility] ? Final Report [place], [place] ? Patient Name: ? Korey P. Montoya ?ID#: ?[id number] ? : ?1950 ? Procedure Date: ? July 29, 2024 ?Case #: ? [id number] ? Room: ? 5 ? Case Physician: [...] procedure was Emergent. The indication for ?the photofinishing laboratory worker visit is ACS less than or equal [...] 3.5 guiding catheter and a 3.5 Fr [place] [address] ??20 Mhz using ?Manual pullback. ??Imaging [...] A premounted 3.00 x 22 mm [place] (LOW) was deployed ? with a maximum [...] atmospheres. ??A premounted 3.00 x 08 mm [place] (LOW) ? was deployed with a maximum [...] dose administered prior to arrival in the photofinishing laboratory worker. ?Recommended anti-platelet/anti-thrombotic regimen: ?Start aspirin 81 mg [...] able ?to start weaning his inotropes/vasopressors. A Rochelle Colette catheter was ?placed demonstrating improvement in [...] ventricular assist device insertion, right heart ?catheterization, Rochelle (flow directed cath) insertion, access site ?angiography, vascular ultrasound, venous line / sheath insert and vascular ?closure device. ? Vahe Marvin M.D. ? Electronically Signed by: Vahe Marvin M.D. ? Report Finalized: 07/29/2024 ??13:55 ? Report Last Ammended: 07/30/2024 ??10:15 ? Procedure Note Vahe Marvin MD - 07/30/[address] [facility] Cardiac Catheterization/Intervention Report Patient Name: Korey MontoyaToby Procedure Date: 07/29/2024 A #: [id number] Primary Physician: Vahe Marvin Case #: [id number] File Name: [id number] Catheterization Order Number: [id number] [facility] FinalReport [place], [place] Patient Name: Korey Montoya ID#:[id number] :1950 Procedure Date: July 29, 2024 Case [...] diagnostic procedure was Emergent. Theindication for the photofinishing laboratory worker visit is ACS less than or equal [...] 3.5 guiding catheter and a 3.[address] 20 Mhzusing Manual pullback. Imaging was [...] The priority for the procedure was Emergent.The [facility] indication for the procedure was STEMI-Immediate PCI [...] The lesion was predilated with a 2.00mm [id number] MM balloon with a maximum inflation pressure of 12atmospheres. A premounted 3.00 x 22 mm [place] (LOW) wasdeployed with a maximum inflation pressure [...] atmospheres. A premounted 3.00 x 08 mm [place](LOW) was deployed with a maximum inflation pressure [...] dose administered prior to arrival in the photofinishing laboratory worker. Recommended anti-platelet/anti-thrombotic regimen: Start aspirin 81 mg [...] wereable to start weaning his inotropes/vasopressors. A Rochelle Colette catheterwas placed demonstrating improvement in his [...] ventricular assist device insertion, right heart catheterization, Rochelle (flow directed cath) insertion, access site angiography, vascular ultrasound, venous line / sheath insert andvascular closure device. Vahe Marvin M.D. Electronically Signed by: Vahe Marvin M.D. Report Finalized: 07/29/2024 13:55 Report Last Ammended: 07/30/2024 10:15 Vahe Marvin MD CARDIAC CATH ORDERAB LES * (ABNORMAL) BLOOD GAS, POC (07/29/2024 12:46 PM EST) Sodium, POC 139 135 - 145 mmol/L 07/30/2024 7:30 AM [facility] Potassium, POC 3.4(L) 3.5 - 5.0 mmol/L 07/30/2024 7:30 AM [facility] pH, POC 7.33(L) 7.35 - 7.45 07/30/2024 7:30 AM [facility] Ionized Calcium, POC 1.13(L) 1.15 - 1.33 mmol/L 07/30/2024 7:30 AM [facility] pCO2, POC 38 35 - 45 mmHg 07/30/2024 7:30 AM [facility] pO2, POC 94 85 - 104 mmHg 07/30/2024 7:30 AM [facility] Base Excess, POC -6.0(L) -3.0 - 3.0 mmol/L 07/30/2024 7:30 AM [facility] Hematocrit, POC 39.0(L) 40.5 - 48.5 %PCV 07/30/2024 7:30 AM [facility] Hemoglobin, POC 13.3(L) 13.7 - 16.5 g/dL 07/30/2024 7:30 AM [facility] Comment:The calculation of h emoglobin from hematocrit assumes a normal MCHC. Bicarbonate, POC 19.8(L) 20.0 - 26.0 mmol/L 07/30/2024 7:30 AM [facility] Carbon Dioxide, POC 21(L) 22 - 31 mmol/L 07/30/2024 7:30 AM [facility] Blood VENOUS BLOOD SPECIMEN / Unknown 07/29/2024 12:46 PM EST 07/30/2024 7:30 AM EST Vahe Marvin MD POINT OF CARE TEST O RDERABLES [facility] [place] [address] * (ABNORMAL) BLOOD GAS, POC (07/29/2024 12:12 PM EST) Sodium, POC 135 135 - 145 mmol/L 07/30/2024 7:30 AM [facility] Potassium, POC 3.8 3.5 - 5.0 mmol/L 07/30/2024 7:30 AM [facility] pH, POC 7.27(LLL) 7.35 - 7.45 07/30/2024 7:30 AM [facility] Ionized Calcium, POC 1.14(L) 1.15 - 1.33 mmol/L 07/30/2024 7:30 AM [facility] pCO2, POC 43 35 - 45 mmHg 07/30/2024 7:30 AM [facility] pO2, POC 131(H) 85 - 104 mmHg 07/30/2024 7:30 AM [facility] Base Excess, POC -7.0(L) -3.0 - 3.0 mmol/L 07/30/2024 7:30 AM [facility] Hematocrit, POC 36.0(L) 40.5 - 48.5 %PCV 07/30/2024 7:30 AM [facility] Hemoglobin, POC 12.2(L) 13.7 - 16.5 g/dL 07/30/2024 7:30 AM [facility] Comment:The calculation of h emoglobin from hematocrit assumes a normal MCHC. Bicarbonate, POC 19.7(L) 20.0 - 26.0 mmol/L 07/30/2024 7:30 AM [facility] Carbon Dioxide, POC 21(L) 22 - 31 mmol/L 07/30/2024 7:30 AM [facility] Blood VENOUS BLOOD SPECIMEN / Unknown 07/29/2024 12:12 PM EST 07/30/2024 7:30 AM EST Vahe Marvin MD POINT OF CARE TEST O RDERABLES [facility] [place] [address] documented in this encounter Visit Diagnoses Diagnosis [...] PM EST 20 mEq 100 mL/ hr [facility] Bag 07/30/2024 9:17 PM EST 20 [...] Routine documented in this encounter Care Teams Packing Inspector Relationship Specialty Start Date End Date Alexia Mtz APRN [address] [place] [id number] PCP - General Family Medicine 07/30/24 documented as of this encounter
--- OUTSIDE RECORDS SUMMARY | 2024-08-31 10:09 | XMS_ITS | Encounter Summary ---
Author Organization [facility] Address [facility] [place] [address] Care Team Providers Care Planner Name Role Phone Yoel Artis Ute ALCALA Primary Care Provider [phone] Reason for Visit * Auth/Cert (Routine) Specialty Diagnoses / Procedures Referred By Theodore t Referred To Contact Diagnoses AIRO Procedures [employer] [facility] Referral ID Status Reason Start Date Expiration Date Visits Re quested Visits Authorized [id number] 1 1 Encounter Details Date Type Department Care Team (Latest Contact Info) Description 07/29/2024 6:32 PM EST - 07/29/2024 11:59 PM EST Hospital Encounter [facility] at [address] [phone] Arvin Becerra MD [facility] [place] [address] Discharge Disposition: Home Social History Tobacco Use Types Packs/Day Years Used Date Smoking Tobacco: Former Cigarettes Smokeless Tobacco: Never Alcohol Use Standard Drinks/Week Comments Not Currently 0 (1 standard drink = 0.6 oz pur e alcohol) [facility] Utilities Answer Date Recorded In the [...] any time in the past 12 [facility], were you homeless or living in a longterm (including now)? No 07/30/2024 [facility] IPV Inpatient [...] evening. 04/17/2023 08/04/2024 nitroGLYcerin (NITROLINGUAL) 400 mcg/spray [place], Non-AerosolIndications: Proctalgia fugax,Fecal smearing,Constipation, unspecified constipation type 1 spray to anus for proctalgia fugax as needed, not to exceed once daily 12 g 06/01/2023 08/04/2024 documented as of this encounter Plan of Treatment Upcoming Encounters Date Type Department Care Team (Late st Contact Info) Description 10/01/2024 10:00 AM EST Office Visit Cardiology at [address] [phone] Mushtaq Murphy APRN documented as of this encounter Visit Diagnoses Not on filedocumented in this encounter Care Teams Planner Relationship Specialty Start Date End Date Yoel Artis APRN [address] [place] [id number] PCP - General Internal Medicine 11/18/22 07/29/24 documented as of this encounter
--- OUTSIDE RECORDS SUMMARY | 2024-08-31 10:09 | XMS_ITS | Encounter Summary ---
[place] [address] Care Team Providers Care Granite Cutter Name Role Phone Alexia Mtz FREDRICK Primary Care Provider [phone] Reason for Visit * Auth/Cert (Routine) Specialty Diagnoses / Procedures Referred By Theodore muro Referred To Contact Diagnoses STEMI (ST elevation myocardial infarction) STEMI Procedures ER SUI Vahe Marvin MD [facility] [place] [address] [facility] Referral ID Status Reason Start Date Expiration Date Visits Re quested Visits Authorized [id number] 1 1 Encounter Details Date Type Department Care Team (Late st Contact Info) Description 07/31/2024 4:30 PM EST - 07/31/2024 5:30 PM EST [place] [id number] Maldonado Luis MD [facility] [place] [address] CARDIAC CATHETERIZATION Social History Tobacco Use Types Packs/Day Years Used Date Smoking Tobacco: Former Cigarettes Smokeless Tobacco: Never Alcohol Use Standard Drinks/Week Comments Not Currently 0 (1 standard drink = 0.6 oz pur e alcohol) [facility] Utilities Answer Date Recorded In the past 12 months has [employer] electric, gas, oil, or water company threatened [...] any time in the past 12 m [facility], were you homeless or living [...] Korey Montoya Patient Age: 74 y.o. Language: Israeli Race: White Ethnicity: Not nor Admit date: [...] please contact your inpatient physician through the [facility] Medical Library Assistant . Issues afterhours and on weekends [...] EKG. Patient transferred via air ambulance to [facility] on 07/29 for LHC and LOW to [...] EKG. Was transferred via air ambulance to [facility] for further management and LHC demonstrated 100% [...] the next year. Access was via right COMMUNITY CENTER WORKER and this sitewas clean, dry and intact [...] for Chest pain. Replaces: nitroGLYcerin 400 mcg/spray Yancey, Non-Aerosol 0.4 mg Quantity: 90 tablet Refills: [...] Refills: 0 STOPPED Medications nitroGLYcerin 400 mcg/spray Yancey, Non-Aerosol Commonly known as: NITROLINGUAL Replaced by: [...] of one year. After this time, your personal shopper will determine if you need to continue [...] away. Stay on the phone. The emergency jump roll operator will tell you what to do. [...] appointments: During 8am-5pm Tuesday through Tuesday call [phone] to speak with a nurse in the cardiology clinic All other times call [phone] and ask to speak to the technician preventative medicine telephone clerks supervisor. Follow up Appointments: PCP Alexia Mtz, DIGITAL MARKETING APPRENTICE [phone]. Please call to establish a follow up appointment within 1-2 weeks of discharge. Cardiology. Referral to heart failure has been sent. General Instructions None Future Appointments and Orders Future Orders Complete By Expires Referral to Cardiac Rehab [TAF053 Custom] As directed Process Instructions: If no progress note charted, please enter Clinical details in comments. Scheduling Instructions: Questions: My question or request is: STEMI, PCI- cardiac rehab at [facility] Referral to Cardiology [REF12 Custom] [...] of one year. After this time, your personal shopper will determine if you need to continue [...] away. Stay on the phone. The emergency jump roll operator will tell you what to do. [...] appointments: During 8am-5pm Tuesday through Tuesday call [phone] to speak with a nurse in the cardiology clinic All other times call [phone] and ask to speak to the technician preventative medicine telephone clerks supervisor. Follow up Appointments: PCP Alexia Mtz, DIGITAL MARKETING APPRENTICE [phone]. Please call to establish a follow up [...] EKG. Patient transferred via air ambulance to [facility] on 07/29 for LHC and LOW to LAD for 100% occlusion Social History: Pt lives with his in a 1 level home with 2 NAOMI. 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 He [...] Total time: 35 (tef) minutes Time IN/OUT: [id number] ZAIDA DUBOSE PT Pager: [phone] Physical Therapy Inpatient Rehabilitation Department * Yrn Ward MD - 08/03/2024 10:38 AM EST CV HOSPITALIST 2 - [facility] DAILY PROGRESS NOTE Page [phone] to reach a provider 04/04 Admit Date: [...] to the overnight study by the telephone clerks supervisor fellow the impella position is stable. 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 [facility] 07/29/24 Conclusions: * One vessel coronary artery disease (LAD) * Mild pulmonary hypertension * Elevated pulmonary capillary wedge pressure * Successful stent insertion of the proximal LAD lesion * See Dual Antiplatelet (DAPT) Recommendations above * Successful impella placement for cardiogenic shock. Telemetry: I have personally reviewed and interpreted the telemetry from the last 24 hours. [facility] Assessment: ASSESSMENT: Korey Montoya is a 74 y.o. male w/ PMH of hypertension, HLD, and BPH who presents for chief concern of chest pain after being found to have ST elevations on EKG. Patient transferred via air ambulance to [facility] on 07/29 for LHC and LOW to [...] to be determined OT: PCP Alexia Mtz, DIGITAL MARKETING APPRENTICE [phone] * Zaida Dubose, PT - 08/02/2024 2:08 PM EST Physical Therapy Evaluation Patient profile: Korey Montoya is a 74 y.o. male w/ PMH of hypertension, HLD, and BPH who presents for chief concern of chest pain after being found to have ST elevations on EKG. Patient transferred via air ambulance to [facility] on 07/29 for LHC and LOW to LAD for 100% occlusion Social History: Pt lives with his in a 1 level home with 2 NAOMI. 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 He [...] Total time: 37 (eval) minutes Time IN/OUT: 9935-9304 ZAIDA DUBOSE, PT Pager: [phone] Physical Therapy Inpatient Rehabilitation Department * Gagan [...] EKG. Patient transferred via air ambulance to [facility] on 07/29 for LHC and LOW to LAD for 100% occlusion. TTE showed apical akinesis and inferior hypokinesis with EF 20%. RHC showed elevated filling pressures. Impella placed and P-level 6 at time of transfer to [facility]. CI initially 1.97, improved [...] PCP: Alexia Mtz APRN PCP phone number: [phone] Date of Admission: 07/29/2024 ( Hospital Day 4 days ) Attending:Bridgette Stauffer MD ID: Korey Montoya is a 74 y.o. male w/ PMH of hypertension, HLD, and BPH on Hospital Day4 for chief concern of chest pain after being found to have ST elevations on EKG. Patient transferred via air ambulance to [facility] on 07/29 for LHC and LOW to [...] 07/29/24 1621 PHART 7.48* 7.44 7.38 7.37 [id number] 29* 29* 34* 36 PO2ART 71* 109* 141* 71* OKI4BET 20.6 19.4* 19.5* 20.4 VBG (Venous Blood Gas) Recent Labs 07/29/24 1401 PHVEN 7.30* PO2VEN 39 SZX6QTX 20.1* Mixed Venous Sat No results for input(s): K5WUHK2 in the last 168 hours. Objective: Vitals [...] 07/29/24 1621 PHART 7.48* 7.44 7.38 7.37 [id number] 29* 29* 34* 36 PO2ART 71* 109* 141* 71* XXS5SYZ 20.6 19.4* 19.5* 20.4 VBG (Venous Blood Gas) Recent Labs 07/29/24 1401 PHVEN 7.30* PO2VEN 39 IMM9RXM 20.1* Mixed Venous Sat No results for input(s): Y5SSOX1 in the last 168 hours. Microbiology: Microbiology Results (Last 30 days) Procedure Component Value Units Date/Time Blood culture [[id number]] Collected: 07/29/241607 Lab Status: Preliminary result Specimen: Blood, Venous Updated: 08/01/241700 Blood Culture No growth at 72 hours Blood culture [[id number]] Collected: 07/29/241607 Lab Status: Preliminary result Specimen: Blood, Venous Updated: 08/01/241700 Blood Culture No growth at 72 hours Imaging: Results for orders placed or performed during the hospital encounter of 07/29/24 XR Chest One View (Exam End: 07/29/2024 2:30 PM) Result Value WORKSTATION ID [id number] Impression 1. No pulmonary edema. 2. No pleural effusion. 3. No pneumothorax. Thank you for letting us participate in the care of this patient. If you are a health care provider and have any questions regarding this report, please contact the number below. For patients who have questions please contact the health home care provider that requested your imaging first. Electronically signed by: Chris Candelaria MD, [facility] ([phone]), at 07/29/2024 3:21 PM TTE ( 07/30/24) [...] to the overnight study by the telephone clerks supervisor fellow the impella position is stable. [...] EKG. Patient transferred via air ambulance to [facility] on 07/29 for LHC and LOW to [...] Susannah Ornelas MD Internal Medicine, PGY-1 Cardiology, [facility] 08/02/24 12:45 PM CARDIOLOGY STAFF [...] today). Transfer to floor. Krystal Parker MD, [facility], [facility] Staff Construction Specialist crm coordinator * Gagan Catherine MD - 08/01/2024 11:12 [...] EKG. Patient transferred via air ambulance to [facility] on 07/29 for LHC and LOW to LAD for 100% occlusion. TTE showed apical akinesis and inferior hypokinesis with EF 20%. RHC showed elevated filling pressures. Impella placed and P-level 6 at time of transfer to [facility]. CI initially 1.97, improved to 2.2 After impella. Received about 3 L of fluid during procedural course. Patient initially required norepinephrine 30, epinephrine 10, and vasopressin 0.04 for hemodynamic support, which was weaned upon arrival to [facility] to norepinephrine 20and levo [...] PCP: Alexia Mtz APRN PCP phone number: [phone] Date of Admission: 07/29/2024 ( Hospital Day 3 days ) Attending:Krystal Parker MD ID: Korey Montoya is a 74 y.o. male w/ PMH of hypertension, HLD, and BPH on Hospital Day3 for chief concern of chest pain after being found to have ST elevations on EKG. Patient transferred via air ambulance to [facility] on 07/29 for LHC and LOW to [...] 07/29/24 1621 PHART 7.48* 7.44 7.38 7.37 [id number] 29* 29* 34* 36 PO2ART 71* 109* 141* 71* JMU9BYE 20.6 19.4* 19.5* 20.4 VBG (Venous Blood Gas) Recent Labs 07/29/24 1401 PHVEN 7.30* PO2VEN 39 AMJ0ZSQ 20.1* Mixed Venous Sat No results for input(s): E4PQUJ8 in the last 168 hours. PA Catheter [...] 07/29/24 1621 PHART 7.48* 7.44 7.38 7.37 MRC8TUM 29* 29* 34* 36 PO2ART 71* 109* 141* 71* JIW4TUH 20.6 19.4* 19.5* 20.4 VBG (Venous Blood Gas) Recent Labs 07/29/24 1401 PHVEN 7.30* PO2VEN 39 TOM5GSU 20.1* Mixed Venous Sat No results for input(s): U3LRLW0 in the last 168 hours. Microbiology: Microbiology Results (Last 30 days) Procedure Component Value Units Date/Time Blood culture [[id number]] Collected: 07/29/24 160 Lab Status: Preliminary result Specimen: Blood, Venous Updated: 07/31/24 170 Blood Culture No growth at 48 hours Blood culture [[id number]] Collected: 07/29/24 1608 Lab Status: Preliminary result Specimen: Blood, Venous Updated: 07/31/24 1701 Blood Culture No growth at 48 hours Imaging: Results for orders placed or performed during the hospital encounter of 07/29/24 XR Chest One View (Exam End: 07/29/2024 2:30 PM) Result Value WORKSTATION ID [id number] Impression 1. No pulmonary edema. 2. No pleural effusion. 3. No pneumothorax. Thank you for letting us participate in the care of this patient. If you are a health care provider and have any questions regarding this report, please contact the number below. For patients who have questions please contact the health home care provider that requested your imaging first. Electronically signed by: Chris Candelaria MD, [facility] ([phone]), at 07/29/2024 3:21 PM TTE ( 07/30/24) [...] to the overnight study by the telephone clerks supervisor fellow the impella position is stable. [...] EKG. Patient transferred via air ambulance to [facility] on 07/29 for LHC and LOW to [...] Susannah Ornelas MD Internal Medicine, PGY-1 Cardiology, [facility] 08/01/24 7:13 AM CARDIOLOGY STAFF [...] with him; questions answered. Krystal Parker MD, [facility], [facility] Staff Construction Specialist crm coordinator * Krystal Parker MD - 07/31/2024 1:06 [...] EKG. Patient transferred via air ambulance to [facility] on 07/29 for LHC and LOW to LAD for 100% occlusion. TTE showed apical akinesis and inferior hypokinesis with EF 20%. RHC showed elevated filling pressures. Impella placed and P-level 6 at time of transfer to [facility]. CI initially 1.97, improved to 2.2 After impella. Received about 3 L of fluid during procedural course. Patient initially required norepinephrine 30, epinephrine 10, and vasopressin 0.04 for hemodynamic support, which was weaned upon arrival to [facility] to norepinephrine 20and levo [...] PCP: Alexia Mtz APRN PCP phone number: [phone] Date of Admission: 07/29/2024 ( Hospital Day 2 days ) Attending:Krystal Parker MD ID: Korey Montoya is a 74 y.o. male w/ PMH of hypertension, HLD, and BPH on Hospital Day2 for chief concern of chest pain after being found to have ST elevations on EKG. Patient transferred via air ambulance to [facility] on 07/29 for LHC and LOW to [...] 0057 07/29/24 1621 PHART 7.44 7.38 7.37 [id number] 29* 34* 36 PO2ART 109* 141* 71* TXD7EKA 19.4* 19.5* 20.4 VBG (Venous Blood Gas) Recent Labs 07/29/24 1401 PHVEN 7.30* PO2VEN 39 FXV5MGF 20.1* Mixed Venous Sat No results for input(s): H5LZNH0 in the last 168 hours. PA Catheter [...] 0057 07/29/24 1621 PHART 7.44 7.38 7.37 JPV4GUU 29* 34* 36 PO2ART 109* 141* 71* YJB8VDE 19.4* 19.5* 20.4 VBG (Venous Blood Gas) Recent Labs 07/29/24 1401 PHVEN 7.30* PO2VEN 39 BZP4EZL 20.1* Mixed Venous Sat No results for input(s): C0PATP2 in the last 168 hours. Microbiology: Microbiology Results (Last 30 days) Procedure Component Value Units Date/Time Blood culture [[id number]] Collected: 07/29/241607 Lab Status: Preliminary result Specimen: Blood, Venous Updated: 07/30/241700 Blood Culture No Growth at 18-24 hrs. Blood culture [[id number]] Collected: 07/29/241607 Lab Status: Preliminary result Specimen: Blood, Venous Updated: 07/30/241700 Blood Culture No Growth at 18-24 hrs. Imaging: Results for orders placed or performed during the hospital encounter of 07/29/24 XR Chest One View (Exam End: 07/29/2024 2:30 PM) Result Value WORKSTATION ID [id number] Impression 1. No pulmonary edema. 2. No pleural effusion. 3. No pneumothorax. Thank you for letting us participate in the care of this patient. If you are a health care provider and have any questions regarding this report, please contact the number below. For patients who have questions please contact the health home care provider that requested your imaging first. Electronically signed by: Chris Candelaria MD, [facility] ([phone]), at 07/29/2024 3:21 PM TTE ( 07/30/24) [...] to the overnight study by the telephone clerks supervisor fellow the impella position is stable. [...] EKG. Patient transferred via air ambulance to [facility] on 07/29 for LHC and LOW to [...] work to optimize volume status while continuing ghbvhnu-zazvbr-ihpzqmskwa therapies at this time. Obtain comprehensive TTE. [...] ILL WITH THESE DIAGNOSES BEING MANAGED BY [facility] TEAM: # Anterior STEMI, late-presenting [...] EKG. Patient transferred via air ambulance to [facility] on 07/29 for LHC and LOW to LAD for 100% occlusion. TTE showed apical akinesis and inferior hypokinesis with EF 20%. RHC showed elevated filling pressures. Impella placed and P-level 6 at time of transfer to [facility]. CI initially 1.97, improved to 2.2 After impella. Received about 3 L of fluid during procedural course. Patient initially required norepinephrine 30, epinephrine 10, and vasopressin 0.04 for hemodynamic support, which was weaned upon arrival to [facility] to norepinephrine 20and levo [...] PCP: Yoel Artis APRN PCP phone number: [phone] Date of Admission: 07/29/2024 ( Hospital Day 1 day ) Attending:Aubree Silverio MD ID: Korey Montoya is a 74 y.o. male w/ PMH of hypertension, HLD, and BPH on Hospital Day1 for chief concern of chest pain after being found to have ST elevations on EKG. Patient transferred via air ambulance to [facility] on 07/29 for LHC and LOW to LAD for 100% occlusion. 24 Hour Events/Subjective: Yesterday: - Admitted to the [facility] - After his LHC, he [...] 0057 07/29/24 1621 PHART 7.44 7.38 7.37 JZR3KJQ 29* 34* 36 PO2ART 109* 141* 71* ZWP5IEK 19.4* 19.5* 20.4 VBG (Venous Blood Gas) Recent Labs 07/29/24 1401 PHVEN 7.30* PO2VEN 39 CQS5FED 20.1* Lactate ( Last 12 hours) 1.3 >> 1.2 Mixed Venous Sat No results for input(s): Z0UIVY4 in the last 168 hours. PA Catheter [...] 0057 07/29/24 1621 PHART 7.44 7.38 7.37 TSE7IJK 29* 34* 36 PO2ART 109* 141* 71* DPF5OSZ 19.4* 19.5* 20.4 VBG (Venous Blood Gas) Recent Labs 07/29/24 1401 PHVEN 7.30* PO2VEN 39 GKR0BXR 20.1* Mixed Venous Sat No results for input(s): K2GJAK3 in the last 168 hours. Microbiology: Microbiology Results (Last 30 days) Procedure Component Value Units Date/Time Blood culture [[id number]] Collected: 07/29/24 1608 Lab Status: In process Specimen: Blood, Venous Updated: 07/29/24 1626 Blood culture [[id number]] Collected: 07/29/24 1608 Lab Status: In process Specimen: Blood, Venous Updated: 07/29/24 1615 Imaging: Results for orders placed or performed during the hospital encounter of 07/29/24 XR Chest One View (Exam End: 07/29/2024 2:30 PM) Result Value WORKSTATION ID [id number] Impression 1. No pulmonary edema. 2. No pleural effusion. 3. No pneumothorax. Thank you for letting us participate in the care of this patient. If you are a health care provider and have any questions regarding this report, please contact the number below. For patients who have questions please contact the health home care provider that requested your imaging first. Electronically signed by: Chris Candelaria MD, [facility] ([phone]), at 07/29/2024 3:21 PM Medications Scheduled Meds: [...] EKG. Patient transferred via air ambulance to [facility] on 07/29 for LHC and LOW to [...] EKG. Patient transferred via air ambulance to [facility] on 07/29 for LHC and LOW to [...] EKG. Was transferred via air ambulance to [facility] for further management and [facility] demo nstrated 100% occlusion. No significant RCA, LMCA, or LCX disease. LOW placed in LAD with some residual distal disease meriting placement of overlapping distal stent. TTE showed apical akinesis and inferior hypokinesis with EF 20%. RHC showed elevated filling pressures. Impella placed and P-level 6 at time of transfer to [facility]. CI initially 1.97, improved to 2.2 After impella. Received about 3 L of fluid during procedural course. Patient initially required norepinephrine, epinephrine, and vasopressin for hemodynamic support, which was weaned upon arrival to [facility] to norepinephrine 20 and [...] performed by Brandan Mcgovern MD [facility] ENDOSCOPY Significant Family History: Family History Problem [...] mouth. Past Week nitroGLYcerin (NITROLINGUAL) 400 mcg/spray Yancey, Non-Aerosol 1 spray to anus for proctalgia [...] 3.5 guiding catheter and a 3.[address] [facility] [address] 20 Mhz using Manual pullback. Imaging [...] atmospheres. A premounted 3.00 x 22 mm [place] (LOW) was deployed with a maximum inflation [...] atmospheres. A premounted 3.00 x 08 mm [place] (LOW) was deployed with a maximum inflation [...] limited study performed by a fellow telephone clerks supervisor to evaluate for cardiogenic shock with [...] to the overnight study by the telephone clerks supervisor fellow the impella position is stable. [...] EKG. Patient transferred via air ambulance to [facility] on 07/29 for LHC and LOW to [...] PCP: Yoel Artis APRN PCP phone number: [phone] Date of Admission: 07/29/2024 ( Hospital Day 0 days ) Attending:Aubree Silverio MD ID: Korey Montoya is a 74 y.o. male w/ PMH of hypertension, HLD, and BPH who presents for chief concern of chest pain after being found to have ST elevations on EKG. Patient transferred via air ambulance to [facility] on 07/29 for LHC and LOW to LAD for 100% occlusion. HPI: Korey Montoya is a 74 y.o. male w/ PMH of hypertension, HLD, and BPH who presents for chief concern of chest pain after being found to have ST elevations on EKG. Patient transferred via air ambulance to [facility] on 07/29 for LHC and LOW to [...] EKG. Was transferred via air ambulance to [facility] for further management and LHC demonstrated 100% [...] performed by Brandan Mcgovern MD [facility] ENDOSCOPY Family History Family History Problem Relation [...] Blood Gas) No results for input(s): PHART, YEN4LMK, PO2ART, YAK7JPP, LACTATEVEN, UTQ3TLZ, PFRATIOART2 in the last 168 hours. VBG (Venous Blood Gas) Recent Labs 07/29/24 1401 PHVEN 7.30* PO2VEN 39 VMQ9OGN 20.1* Mixed Venous Sat No results for input(s): T5GQWP9 in the last 168 hours. PA Catheter [...] Blood Gas) No results for input(s): PHART, OJP8GVT, PO2ART, GPX6BGU, LACTATEVEN, GMK7UOS, PFRATIOART2 in the last 168 hours. VBG (Venous Blood Gas) Recent Labs 07/29/24 1401 PHVEN 7.30* PO2VEN 39 MHK7JCD 20.1* Mixed Venous Sat No results for input(s): P1LPCM6 in the last 168 hours. Microbiology: Microbiology [...] EKG. Patient transferred via air ambulance to [facility] on 07/29 for LHC. Found to have 100% occlusion of LAD for which he underwent LOW to LAD.Otherwise no other significant vessel disease. Fahad is currently hemodynamically tenuous but improving upon admission to [facility], requiring hemodynamic support with norepinephrine and vasopressin at time of admission along with mechanical support with Impella device. Reassuringly, he demonstrates decreasing pressor requirements since admission to [facility], with epinephrine completely weaned. [...] Bernardo Amos MD Internal Medicine, PGY-3 Cardiology, [facility] 07/29/24 3:14 PM Cardiology [...] MD, FACP, FACC Section of Cardiovascular Medicine [facility] Tablet Techniciancloth classer [facility] [employer] [facility] This patient meets or has [...] to the planned procedure. Hand Hygiene: The gospel worker did perform hand hygiene prior to arterial [...] ease. Good wave form. Ivan Hernandez MD Wine Bottle Inspector Associated attestation - Rolando Yeh MD - [...] Fahad was quite active prior to his [place]. 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 Given parameters for home exercise. He follows a heart healthy diet and is not overweight. His lipids are wnl. Participation in an outpatient cardiac rehabilitation program at [facility] was discussed. Patient agrees to [...] No Patient is insured through: Primary Insurance: [facility] MANA[facility] MEDICARE Payor: [facility] MANAGED MEDICARE / Plan: [facility] MANAGED MEDICARE COMPLETE / Product [...] Date of Discharge: 08/04/2024 Gaby Wong RN, Pager-[phone] * Initial Assessments - Char Meza, OT - 08/03/2024 10:00 AM EST Occupational Therapy Evaluation Patient profile: Korey Montoya is a 74 y.o. male admitted on 07/29/2024 w/ PMH of hypertension, HLD, and BPH who presents for chief concern of chest pain after being found to have ST elevations onEKG. Patient transferred via air ambulance to [facility] on 07/29 for LHC and LOW to [facility] for 100% occlusion. Past Medical History: Diagnosis Date ADHD HLD (hyperlipidemia) HTN (hypertension) Tremor Past Surgical History: Procedure Laterality Date HAND SURGERY PRO COLONOSCOPY, REMV LESN, SNARE N/A 08/30/2023 COLONOSCOPY, POLYPECTOMY, REMOVAL LESION BY SNARE (WRVU 4.57) performed by Brandan Mcgovern MD [facility] ENDOSCOPY Social History: Patient lives with his . Home Setup: 2 NAOMI to a 1 level home. DME: none Baseline ADL/Mobility: Independent with ADLs and IADLs. Enjoys walking. able assist as needed. Precautions/Special Considerations: Full code. Risk for falls. Subjective: I have access to an [employer] weight gym. (Educated to wait for MD [...] evaluation only Total Minutes, Occupational Therapy: 14 ([id number] (evaluation)) 2017 OT Evaluation Code Rationale: Diagnosis [...] and measurable assessment of functional outcome. Pager: [phone] Char Meza OT 08/03/2024 Occupational Therapy Rehabilitation [...] (Interventions Implemented as Appropriate) Flowsheets (Taken 08/01/2024 5908) Outcome Summary: A+O, no pain. NSR. MAP [...] Procedure Note: Patient Name: Korey Montoya : [id number] MR#: [id number] Case Date: 07/31/2024 Medical Library Assistant: Surgeons and Role: * Maldonado Luis MD - Primary * Quinten Charles PA - Physician Multifocal Lens Assembler Preoperative diagnosis: shock, impella Postoperative diagnosis: * same * Procedure(s) performed: Impella removal form right COMMUNITY CENTER WORKER Access: Right COMMUNITY CENTER WORKER A time-out was conducted prior to the [...] Admitted From: Transfer from another hospital Location: [facility] Reason for Hospitalization: chest pain Past medical History: Past Medical History: Diagnosis Date ADHD HLD (hyperlipidemia) HTN (hypertension) Tremor Hospitalizations Within the Past 30 Days: no previous admission in last 30 days Current Decision-Making Capacity: Self If AD's have not been completed the following surrogate would be surrogate decision maker per [place] surrogate decision making law. (Only good for 180 days) Any patient receiving care in [place] must abide by [place] law. The hierarchy for surrogate decision making [...] (i) The agent with financial power of investment director or a conservator appointed in accordance with [...] In the past 12 months has the [employer] gas, oil, or water [employer] threatened to shut off services in your [...] it) Home Address confirmed as: Mailing Address: [facility] [address] [address] Physical Address: [address] [place], [place] Social & Family Supports: All names [...] points: Addiction likely Health/Prescription Coverage: Primary Insurance: [facility] [employer] MEDICARE Payor: [facility] MANAGED MEDICARE / Plan: [facility] MANAGED MEDICARE COMPLETE / Product Type: *No Product type* / Secondary Insurance: N/A ; Prescription Coverage: Yes Preferred Pharmacy: [address] [address] Status: Patient is a : No Primary Care Provider confirmed: Alexia Mtz, DIGITAL MARKETING APPRENTICE [phone] Patient/Caregiver Goals of Treatment: return home Potential [...] 07/29/2024 6:25 PM EST Pt arrived from phlebotomist lab assistant @ 1400. CXR and EKG completed. Impella [...] Procedure Note: Patient Name: Korey Montoya : [id number] MR#: [id number] Case Date: 07/29/2024 Medical Library Assistant: Surgeons and Role: * Vahe Marvin MD - Primary * Susannah Watts PA - Physician Multifocal Lens Assembler Preoperative diagnosis: STEMI Postoperative diagnosis: * STEMI, LAD Artery * * Cardiogenic Shock * Procedure(s) performed: [facility] Coronary angiogram Stent insertion coronary IVUS coronary Venous line insert [facility] [place] Colette Catheter Vascular closure device Ventricular assist [...] x 22 mm to 14 deonna JEISON [place] with LIZ 3 flow. Residual distal disease at distal stent, overlapping distal stent was inserted with 3.0 x 8 mm JEISON [place]. Systolic's in the 80's sustained. Patient re [...] AM EST Office Visit Cardiology at [address] [phone] Mushtaq Murphy, DIGITAL MARKETING APPRENTICE Scheduled Orders Name Type Priority Associated Diagnoses [...] (with Diff) (08/04/2024 6:08 AM EST) Pathologist [facility] White Blood Cell 7.27 4.00 - 9.50 [...] 0.04 x10(3)/mc L 08/04/2024 6:39 AM EST [facility] Blood VENOUS BLOOD SPECIMEN / Unknown Venipuncture / Unknown 08/04/2024 6:08 AM EST 08/04/2024 6:19 AM EST Bridgette Stauffer MD HEMATOLOGY ORDERABLE S Performing Organization Address City/[facility]/ZIP Co de Phone Number [facility] [place] [address] * Magnesium (08/04/2024 6:08 AM EST) Magnesium 0.85 0.69 - 1.07 mMol/L 08/04/2024 7:07 AM [facility] Blood VENOUS BLOOD SPECIMEN / Unknown Venipuncture / Unknown 08/04/2024 6:08 AM EST 08/04/2024 6:19 AM EST Bridgette Stauffer MD CHEMISTRY ORDERABLES Performing Organization Address City/[facility]/ZIP Co de Phone Number [facility] [place] [address] * Basic Metabolic Panel (08/04/2024 6:08 AM [...] - 31 mMol/L 08/04/2024 7:07 AM EST [facility] Anion Gap 8 5 - 15 mMol/L 08/04/2024 7:07 AM EST [facility] Calcium 8.5 8.5 - 10.5 mg/dL 08/04/2024 7:07 AM EST [facility] Est Glomerular Filtration Rate - Male 74 mL/min/1. 73 m?? 08/04/2024 7:07 AM EST [facility] Comment: This patient's [...] AM EST Bridgette Stauffer MD CHEMISTRY ORDERABLES [facility] [place] [address] * (ABNORMAL) CBC (with Diff) (08/03/2024 5:16 AM EST) White Blood Cell 7.85 4.00 - 9.50 x10(3)/mc L 08/03/2024 5:29 AM EST [facility] Red Blood Cell 4.43(L) 4.58 - 5.54 x10(6)/mc L 08/03/2024 5:29 AM EST [facility] Hemoglobin 11.8(L) 13.7 - 16.5 g/dL 08/03/2024 5:29 AM EST [facility] Hematocrit 35.9(L) 40.5 - 48.5 % 08/03/2024 5:29 AM [facility] Mean Cell Volume 81.0(L) 82.9 - 93.1 fL 08/03/2024 5:29 AM [facility] Mean Cell Hemoglobin 26.6(L) 27.5 - 32.1 pg 08/03/2024 5:29 AM [facility] Mean Cell Hemoglobin Concentration 32.9 32.0 - 35.7 g/dL 08/03/2024 5:29 AM [facility] Platelet 142(L) 145 - 357 x10(3)/mc L 08/03/2024 5:29 AM [facility] Mean Platelet Volume 10.5 7.6 - 12.9 fL 08/03/2024 5:29 AM [facility] RDW Standard Deviation 42.5 36.0 - 45.0 fL 08/03/2024 5:29 AM [facility] RDW coefficient of variation 14.2(H) 11.4 - 13.8 % 08/03/2024 5:29 AM [facility] NRBC% auto 0.0 % 08/03/2024 5:29 AM [facility] NRBC Absolute <0.01 <0.01 x10(3)/mc L 08/03/2024 5:29 AM [facility] Neutrophil % 75.2 % 08/03/2024 5:29 AM [facility] Neutrophil Absolute (ANC) - Automated 5.91 1.70 - 6.10 x10(3)/mc L 08/03/2024 5:29 AM [facility] Lymph % 13.4 % 08/03/2024 5:29 AM [facility] Lymph Absolute 1.05 0.90 - 3.20 x10(3)/mc L 08/03/2024 5:29 AM [facility] Monocyte % 9.0 % 08/03/2024 5:29 AM [facility] Monocyte Absolute 0.71 0.30 - 0.90 x10(3)/mc L 08/03/2024 5:29 AM [facility] Eos % 1.7 % 08/03/2024 5:29 AM [facility] Eos Absolute 0.13 0.00 - 0.40 x10(3)/mc L 08/03/2024 5:29 AM [facility] Basophil % 0.4 % 08/03/2024 5:29 AM [facility] Baso Absolute <0.04 0.00 - 0.10 x10(3)/mc L 08/03/2024 5:29 AM [facility] Immature Gran % 0.3 % 5:29 AM [facility] Immature Gran Absolute <0.04 0.00 - 0.04 x10(3)/mc L 08/03/2024 5:29 AM [facility] Blood VENOUS BLOOD SPECIMEN / Unknown Venipuncture / Unknown 08/03/2024 5:16 AM EST 08/03/2024 5:23 AM EST Bridgette Stauffer MD HEMATOLOGY ORDERABLE S [facility] [place] [address] * Magnesium (08/03/2024 5:16 AM EST) Magnesium 0.89 0.69 - 1.07 mMol/L 08/03/2024 5:56 AM [facility] Blood VENOUS BLOOD SPECIMEN / Unknown Venipuncture / Unknown 08/03/2024 5:16 AM EST 08/03/2024 5:23 AM EST Bridgette Stauffer MD CHEMISTRY ORDERABLES [facility] [place] [address] * (ABNORMAL) Basic Metabolic Panel (08/03/2024 5:16 AM EST) Glucose 98 65 - 199 mg/dL 08/03/2024 5:56 AM [facility] Comment:Glucose Concentratio n >=200 mg/dL plus symptoms is consistent with Diabetes Mellitus. Blood Urea Nitrogen 16 10 - 20 mg/dL 08/03/2024 5:56 AM [facility] Creatinine 0.85 0.80 - 1.50 mg/dL 08/03/2024 5:56 AM [facility] Sodium 137 135 - 145 mMol/L 08/03/2024 5:56 AM [facility] Potassium 4.5 3.5 - 5.0 mMol/L 08/03/2024 5:56 AM [facility] Chloride 106 98 - 107 mMol/L 08/03/2024 5:56 AM [facility] Carbon Dioxide 21(L) 22 - 31 mMol/L 08/03/2024 5:56 AM [facility] Anion Gap 10 5 - 15 mMol/L 08/03/2024 5:56 AM [facility] Calcium 8.3(L) 8.5 - 10.5 mg/dL 08/03/2024 5:56 AM [facility] Est Glomerular Filtration Rate - Male 92 mL/min/1. 73 m?? 08/03/2024 5:56 AM [facility] Comment: This patient's [...] Stauffer MD CHEMISTRY ORDERABLES Performing Organization Address [facility]/ZIP Co de Phone Number [facility] [place] [address] * POC, GLUCOSE (08/02/2024 7:47 AM EST) [facility] Glucometer, POC 89 65 - 199 mg/dL 08/02/2024 7:47 AM EST [facility] Comment:Supplemental ranges: <140 mg/dL before meals <180 mg/dL all other times of the day. Blood CAPILLARY BLOOD / Unknown 08/02/2024 7:47 AM EST 08/02/2024 7:47 AM EST Krystal Parker MD POINT OF CARE TEST O RDERABLES Performing Organization Address [facility] Co de Phone Number [facility] [place] [address] * (ABNORMAL) CBC (with Diff) (08/02/2024 4:20 AM EST) [facility] White Blood Cell 8.51 4.00 - 9.50 x10(3)/mc L 08/02/2024 4:50 AM [facility] Red Blood Cell 4.41(L) 4.58 - 5.54 x10(6)/mc L 08/02/2024 4:50 AM [facility] Hemoglobin 12.2(L) 13.7 - 16.5 g/dL 08/02/2024 4:50 AM [facility] Hematocrit 35.8(L) 40.5 - 48.5 % 08/02/2024 4:50 AM [facility] Mean Cell Volume 81.2(L) 82.9 - 93.1 fL 08/02/2024 4:50 AM [facility] Mean Cell Hemoglobin 27.7 27.5 - 32.1 pg 08/02/2024 4:50 AM [facility] Mean Cell Hemoglobin Concentration 34.1 32.0 - 35.7 g/dL 08/02/2024 4:50 AM [facility] Platelet 111(L) 145 - 357 x10(3)/mc L 08/02/2024 4:50 AM [facility] Mean Platelet Volume 11.1 7.6 - 12.9 fL 08/02/2024 4:50 AM [facility] RDW Standard Deviation 41.9 36.0 - 45.0 fL 08/02/2024 4:50 AM [facility] RDW coefficient of variation 14.1(H) 11.4 - 13.8 % 08/02/2024 4:50 AM [facility] NRBC% auto 0.0 % 08/02/2024 4:50 AM [facility] NRBC Absolute <0.01 <0.01 x10(3)/mc L 08/02/2024 4:50 AM [facility] Neutrophil % 77.7 % 08/02/2024 4:50 AM [facility] Neutrophil Absolute (ANC) - Automated 6.62(H) 1.70 - 6.10 x10(3)/mc L 08/02/2024 4:50 AM [facility] Lymph % 11.9 % 08/02/2024 4:50 AM [facility] Lymph Absolute 1.01 0.90 - 3.20 x10(3)/mc L 08/02/2024 4:50 AM [facility] Monocyte % 8.2 % 08/02/2024 4:50 AM [facility] Monocyte Absolute 0.70 0.30 - 0.90 x10(3)/mc L 08/02/2024 4:50 AM [facility] Eos % 1.4 % 08/02/2024 4:50 AM [facility] Eos Absolute 0.12 0.00 - 0.40 x10(3)/mc L 08/02/2024 4:50 AM EST [facility] Basophil % 0.4 % 08/02/2024 4:50 AM [facility] Baso Absolute <0.04 0.00 - 0.10 x10(3)/mc L 08/02/2024 4:50 AM [facility] Immature Gran % 0.4 % 4:50 AM [facility] Immature Gran Absolute <0.04 0.00 - 0.04 x10(3)/mc L 08/02/2024 4:50 AM [facility] Blood VENOUS BLOOD SPECIMEN / Unknown Venipuncture / Unknown 08/02/2024 4:20 AM EST 08/02/2024 4:37 AM EST Bridgette Stauffer MD HEMATOLOGY ORDERABLE S Performing Organization Address City/[facility]/ZIP Co de Phone Number [facility] [place] [address] * Magnesium (08/02/2024 4:20 AM EST) Magnesium 0.79 0.69 - 1.07 mMol/L 08/02/2024 5:06 AM [facility] Blood VENOUS BLOOD SPECIMEN / Unknown Venipuncture / Unknown 08/02/2024 4:20 AM EST 08/02/2024 4:37 AM EST Brdigette Stauffer MD CHEMISTRY ORDERABLES [facility] [place] [address] * (ABNORMAL) Basic Metabolic Panel (08/02/2024 4:20 AM EST) Glucose 110 65 - 199 mg/dL 08/02/2024 5:06 AM [facility] Comment:Glucose Concentratio n >=200 mg/dL plus symptoms is consistent with Diabetes Mellitus. Blood Urea Nitrogen 12 10 - 20 mg/dL 08/02/2024 5:06 AM [facility] Creatinine 0.90 0.80 - 1.50 mg/dL 08/02/2024 5:06 AM [facility] Sodium 139 135 - 145 mMol/L 08/02/2024 5:06 AM [facility] Potassium 4.0 3.5 - 5.0 mMol/L 08/02/2024 5:06 AM [facility] Chloride 108(H) 98 - 107 mMol/L 08/02/2024 5:06 AM [facility] Carbon Dioxide 23 22 - 31 mMol/L 08/02/2024 5:06 AM [facility] Anion Gap 8 5 - 15 mMol/L 08/02/2024 5:06 AM [facility] Calcium 8.1(L) 8.5 - 10.5 mg/dL 08/02/2024 5:06 AM [facility] Est Glomerular Filtration Rate - Male 91 mL/min/1. 73 m?? 08/02/2024 5:06 AM [facility] Comment: This patient's [...] AM EST Bridgette Stauffer MD CHEMISTRY ORDERABLES [facility] [place] [address] * Potassium (08/01/2024 8:39 PM EST) Potassium 4.0 3.5 - 5.0 mMol/L 08/01/2024 9:21 PM EST [facility] Blood VENOUS BLOOD SPECIMEN / Unknown Venipuncture / Unknown 08/01/2024 8:39 PM EST 08/01/2024 8:51 PM EST Aubree Silverio MD CHEMISTRY ORDERABL ES Performing Organization Address City/[facility]/ZIP Co de Phone Number [facility] [place] [address] * POC, GLUCOSE (08/01/2024 8:35 PM EST) Glucometer, POC 112 65 - 199 mg/dL 08/01/2024 8:36 PM EST [facility] Comment:Supplemental ranges: <140 mg/dL before meals <180 mg/dL all other times of the day. Blood CAPILLARY BLOOD / Unknown 08/01/2024 8:35 PM EST 08/01/2024 8:36 PM EST Krystal Parker MD POINT OF CARE TEST O RDKAY Performing Organization Address [facility] Co de Phone Number [facility] [place] [address] * POC, GLUCOSE (08/01/2024 4:55 PM EST) Glucometer, POC 99 65 - 199 mg/dL 08/01/2024 4:56 PM EST [facility] Comment:Supplemental ranges: <140 mg/dL before meals <180 mg/dL all other times of the day. Blood CAPILLARY BLOOD / Unknown 08/01/2024 4:55 PM EST 08/01/2024 4:56 PM EST Krystal Parker MD POINT OF CARE TEST O RDKAY Performing Organization Address City/[facility]/ZIP Co de Phone Number [facility] [place] [address] * POC, GLUCOSE (08/01/2024 12:42 PM EST) Glucometer, POC 130 65 - 199 mg/dL 08/01/2024 12:43 PM EST [facility] Comment:Supplemental ranges: <140 mg/dL before meals <180 mg/dL all other times of the day. Blood CAPILLARY BLOOD / Unknown 08/01/2024 12:42 PM EST 08/01/2024 12:43 PM EST Krystal Parker MD POINT OF CARE TEST O RDERASHAY [facility] [place] [address] * (ABNORMAL) Cooximetry, POC (08/01/2024 10:45 AM EST) Pathologist [facility] pO2, Coox 32 mmHg 08/01/2024 10:48 AM [facility] Hemoglobin, Coox 12.9(L) 13.7 - 16.5 g/dL 08/01/2024 10:48 AM [facility] Oxyhemoglobin, Coox 66.7 % 08/01/2024 10:48 AM [facility] Carboxyhemoglo bin, Coox 1.1 % 08/01/2024 10:48 AM [facility] Comment: Nonsmokers: 0.5-1.5% COHB ?? Smokers: Variable ??but usually less than 10% ?? Toxic: 20-30% COHB ?? Lethal: Greater than 60% COHB Methemoglobin, Coox 0.3 <=1.5 % 08/01/2024 10:48 AM [facility] Blood (Mixed Venous) 08/01/2024 10:45 AM EST 08/01/2024 10:48 AM EST Krystal Parker MD POINT OF CARE TEST O RDERABLES Performing Organization Address City/[facility]/ZIP Co de Phone Number [facility] [place] [address] * Potassium (08/01/2024 8:20 AM EST) Pathologist [facility] Potassium 4.0 3.5 - 5.0 mMol/L 08/01/2024 10:17 AM EST [facility] Blood ARTERIAL BLOOD / Unknown Venipuncture / Unknown 08/01/2024 8:20 AM EST 08/01/2024 8:30 AM EST Aubree Silverio MD CHEMISTRY ORDERABL ES Performing Organization Address City/[facility]/ZIP Co de Phone Number [facility] [place] [address] * POC, GLUCOSE (08/01/2024 7:44 AM EST) [facility] Glucometer, POC 86 65 - 199 mg/dL 08/01/2024 7:44 AM EST [facility] Comment:Supplemental ranges: <140 mg/dL before meals <180 mg/dL all other times of the day. Blood CAPILLARY BLOOD / Unknown 08/01/2024 7:44 AM EST 08/01/2024 7:44 AM EST Krystal Parker MD POINT OF CARE TEST O RDERABLES Performing Organization Address City/[facility]/ZIP Co de Phone Number [facility] [place] [address] * (ABNORMAL) CBC (with Diff) (08/01/2024 4:18 AM EST) [facility] White Blood Cell 8.51 4.00 - 9.50 x10(3)/mc L 08/01/2024 4:53 AM EST [facility] Red Blood Cell 4.12(L) 4.58 - 5.54 x10(6)/mc L 08/01/2024 4:53 AM EST [facility] Hemoglobin 11.2(L) 13.7 - 16.5 g/dL 08/01/2024 4:53 AM EST [facility] Hematocrit 33.8(L) 40.5 - 48.5 % 08/01/2024 4:53 AM [facility] Mean Cell Volume 82.0(L) 82.9 - 93.1 fL 08/01/2024 4:53 AM [facility] Mean Cell Hemoglobin 27.2(L) 27.5 - 32.1 pg 08/01/2024 4:53 AM [facility] Mean Cell Hemoglobin Concentration 33.1 32.0 - 35.7 g/dL 08/01/2024 4:53 AM [facility] Platelet 94(L) 145 - 357 x10(3)/mc L 08/01/2024 4:53 AM [facility] Mean Platelet Volume 10.9 7.6 - 12.9 fL 08/01/2024 4:53 AM [facility] RDW Standard Deviation 44.2 36.0 - 45.0 fL 08/01/2024 4:53 AM [facility] RDW coefficient of variation 14.7(H) 11.4 - 13.8 % 08/01/2024 4:53 AM [facility] NRBC% auto 0.0 % 08/01/2024 4:53 AM [facility] NRBC Absolute <0.01 <0.01 x10(3)/mc L 08/01/2024 4:53 AM [facility] Neutrophil % 82.7 % 08/01/2024 4:53 AM [facility] Neutrophil Absolute (ANC) - Automated 7.04(H) 1.70 - 6.10 x10(3)/mc L 08/01/2024 4:53 AM [facility] Lymph % 8.6 % 08/01/2024 4:53 AM [facility] Lymph Absolute 0.73(L) 0.90 - 3.20 x10(3)/mc L 08/01/2024 4:53 AM [facility] Monocyte % 7.6 % 08/01/2024 4:53 AM [facility] Monocyte Absolute 0.65 0.30 - 0.90 x10(3)/mc L 08/01/2024 4:53 AM [facility] Eos % 0.5 % 08/01/2024 4:53 AM [facility] Eos Absolute 0.04 0.00 - 0.40 x10(3)/mc L 08/01/2024 4:53 AM [facility] Basophil % 0.2 % 08/01/2024 4:53 AM [facility] Baso Absolute <0.04 0.00 - 0.10 x10(3)/mc L 08/01/2024 4:53 AM [facility] Immature Gran % 0.4 % 4:53 AM [facility] Immature Gran Absolute <0.04 0.00 - 0.04 x10(3)/mc L 08/01/2024 4:53 AM [facility] Blood VENOUS BLOOD SPECIMEN / Unknown Venipuncture / Unknown 08/01/2024 4:18 AM EST 08/01/2024 4:29 AM EST Bridgette Stauffer MD HEMATOLOGY ORDERABLE S [facility] [place] [address] * Magnesium (08/01/2024 4:18 AM EST) Magnesium 0.74 0.69 - 1.07 mMol/L 08/01/2024 5:00 AM [facility] Blood VENOUS BLOOD SPECIMEN / Unknown Venipuncture / Unknown 08/01/2024 4:18 AM EST 08/01/2024 4:29 AM EST Bridgette Stauffer MD CHEMISTRY ORDERABLES [facility] [place] [address] * (ABNORMAL) Basic Metabolic Panel (08/01/2024 4:18 AM EST) Glucose 107 65 - 199 mg/dL 08/01/2024 5:00 AM [facility] Comment:Glucose Concentratio n >=200 mg/dL plus symptoms is consistent with Diabetes Mellitus. Blood Urea Nitrogen 8(L) 10 - 20 mg/dL 08/01/2024 5:00 AM [facility] Creatinine 0.82 0.80 - 1.50 mg/dL 08/01/2024 5:00 AM [facility] Sodium 137 135 - 145 mMol/L 08/01/2024 5:00 AM [facility] Potassium 3.9 3.5 - 5.0 mMol/L 08/01/2024 5:00 AM [facility] Chloride 108(H) 98 - 107 mMol/L 08/01/2024 5:00 AM [facility] Carbon Dioxide 21(L) 22 - 31 mMol/L 08/01/2024 5:00 AM [facility] Anion Gap 8 5 - 15 mMol/L 08/01/2024 5:00 AM [facility] Calcium 7.7(L) 8.5 - 10.5 mg/dL 08/01/2024 5:00 AM [facility] Est Glomerular Filtration Rate - Male 93 mL/min/1. 73 m?? 08/01/2024 5:00 AM [facility] Comment: This patient's [...] Stauffer MD CHEMISTRY ORDERABLES Performing Organization Address [facility] de Phone Number [facility] [place] [address] * POC, GLUCOSE (07/31/2024 8:41 PM EST) [facility] Signature Glucometer, POC 73 65 - 199 mg/dL 07/31/2024 8:41 PM EST [facility] Comment:Supplemental ranges: <140 mg/dL before meals <180 mg/dL all other times of the day. Blood CAPILLARY BLOOD / Unknown 07/31/2024 8:41 PM EST 07/31/2024 8:41 PM EST Krystal Parker MD POINT OF CARE TEST O RDERABLES Performing Organization Address [facility] de Phone Number [facility] [place] [address] * CARDIAC CATHETERIZATION (07/31/2024 5:53 PM EST) Anatomical Region Laterality Modality Other Narrative 08/01/2024 12:37 PM EST ?[facility] ? Cardiac Catheterization/Intervention Report ? Patient Name: Korey MontoyaoTby ? Procedure Date: 07/31/2024 ? A #: [id number] ? Primary Physician: Maldonado Luis ? Case #: [id number] ? File Name: [id number] ? Catheterization Order Number: [id number] ? [facility] ? Final Report [place], [place] ? Patient Name: ? Korey P. Montoya ?ID#: ?[id number] ? : ?1950 ? Procedure Date: ? [...] ? Comments: ?Impella removed from the right COMMUNITY CENTER WORKER with deployment of Perclose and ?Angioseal. ??Good hemostasis. ?The attending physician was present for the entire procedure. ?Dr. Maldonado Luis M.D. was present during the moderate sedation ?intraservice time as documented by the sedation nurse. ??Case time = 00:35. ?Dr. Maldonado Luis M.D. performed the vascular closure device and ?ventricular assist device removal. ? Maldonado Luis M.D. ? Electronically Signed by: Maldonaod Luis M.D. ? Report Finalized: 08/01/2024 ??12:31 ? Procedure Note Maldonado Luis MD - 08/01/2024 [facility] Cardiac Catheterization/Intervention Report Patient Name: Korey MontoyaToby Procedure Date: 07/31/2024 A #: [id number] Primary Physician: Maldonado Luis Case #: [id number] File Name: [id number] Catheterization Order Number: [id number] [facility] FinalReport [place], [place] Patient Name: Korey Montoya ID#:[id number] :1950 Procedure Date: July 31, 2024 Case [...] procedures. Comments: Impella removed from the right COMMUNITY CENTER WORKER with deployment of Perclose and Angioseal. Good [...] - 199 mg/dL 07/31/2024 11:04 AM EST [facility] Comment:Supplemental ranges: <140 mg/dL before meals <180 mg/dL all other times of the day. Blood CAPILLARY BLOOD / Unknown 07/31/2024 11:04 AM EST 07/31/2024 11:04 AM EST Krystal Parker MD POINT OF CARE TEST O RDERABLES Performing Organization Address City/State/[facility] Co de Phone Number [facility] [place] [address] * (ABNORMAL) Blood Gas, Arterial POC (07/31/2024 [...] 1.15 - 1.33 mmol/L 07/31/2024 8:30 AM [facility] Glucose, Arterial 86 65 - 199 mg/dL 07/31/2024 8:30 AM EST [facility] Comment:Glucose Concentratio n >=200 mg/dL plus symptoms is consistent with Diabetes Mellitus. Blood ARTERIAL BLOOD / Unknown 07/31/2024 8:29 AM EST 07/31/2024 8:30 AM EST Krystal Parker MD POINT OF CARE TEST O RDERABLES [facility] [place] [address] * POC, GLUCOSE (07/31/2024 7:47 AM EST) Glucometer, POC 82 65 - 199 mg/dL 07/31/2024 7:53 AM EST [facility] Comment:Supplemental ranges: <140 mg/dL before meals <180 mg/dL all other times of the day. Blood CAPILLARY BLOOD / Unknown 07/31/2024 7:47 AM EST 07/31/2024 7:53 AM EST Krystal Parker MD POINT OF CARE TEST O RDERABLES [facility] [place] [address] * (ABNORMAL) CBC (with Diff) (07/31/2024 1:08 AM EST) [facility] White Blood Cell 10.25(H) 4.00 - 9.50 x10(3)/mc L 07/31/2024 1:28 AM [facility] Red Blood Cell 4.13(L) 4.58 - 5.54 x10(6)/mc L 07/31/2024 1:28 AM [facility] Hemoglobin 11.2(L) 13.7 - 16.5 g/dL 07/31/2024 1:28 AM [facility] Hematocrit 33.9(L) 40.5 - 48.5 % 07/31/2024 1:28 AM [facility] Mean Cell Volume 82.1(L) 82.9 - 93.1 fL 07/31/2024 1:28 AM [facility] Mean Cell Hemoglobin 27.1(L) 27.5 - 32.1 pg 07/31/2024 1:28 AM [facility] Mean Cell Hemoglobin Concentration 33.0 32.0 - 35.7 g/dL 07/31/2024 1:28 AM [facility] Platelet 109(L) 145 - 357 x10(3)/mc L 07/31/2024 1:28 AM [facility] Mean Platelet Volume 10.4 7.6 - 12.9 fL 07/31/2024 1:28 AM [facility] RDW Standard Deviation 45.1(H) 36.0 - 45.0 fL 07/31/2024 1:28 AM [facility] RDW coefficient of variation 15.1(H) 11.4 - 13.8 % 07/31/2024 1:28 AM [facility] NRBC% auto 0.0 % 07/31/2024 1:28 AM [facility] NRBC Absolute <0.01 <0.01 x10(3)/mc L 07/31/2024 1:28 AM [facility] Neutrophil % 79.7 % 07/31/2024 1:28 AM [facility] Neutrophil Absolute (ANC) - Automated 8.17(H) 1.70 - 6.10 x10(3)/mc L 07/31/2024 1:28 AM [facility] Lymph % 12.8 % 07/31/2024 1:28 AM [facility] Lymph Absolute 1.31 0.90 - 3.20 x10(3)/mc L 07/31/2024 1:28 AM [facility] Monocyte % 6.9 % 07/31/2024 1:28 AM [facility] Monocyte Absolute 0.71 0.30 - 0.90 x10(3)/mc L 07/31/2024 1:28 AM [facility] Eos % 0.1 % 07/31/2024 1:28 AM [facility] Eos Absolute <0.04 0.00 - 0.40 x10(3)/mc L 07/31/2024 1:28 AM [facility] Basophil % 0.3 % 07/31/2024 1:28 AM [facility] Baso Absolute <0.04 0.00 - 0.10 x10(3)/mc L 07/31/2024 1:28 AM [facility] Immature Gran % 0.2 % 1:28 AM EST [facility] Immature Gran Absolute <0.04 0.00 - 0.04 x10(3)/mc L 07/31/2024 1:28 AM [facility] Blood VENOUS BLOOD SPECIMEN / Unknown Venipuncture / Unknown 07/31/2024 1:08 AM EST 07/31/2024 1:18 AM EST Bridgette Stauffer MD HEMATOLOGY ORDERABLE S Performing Organization Address [facility] Co de Phone Number [facility] [place] [address] * Magnesium (07/31/2024 1:08 AM EST) Pathologist [facility] Magnesium 0.89 0.69 - 1.07 mMol/L 07/31/2024 1:46 AM [facility] Blood VENOUS BLOOD SPECIMEN / Unknown Venipuncture / Unknown 07/31/2024 1:08 AM EST 07/31/2024 1:18 AM EST Bridgette Stauffer MD CHEMISTRY ORDERABLES Performing Organization Address City/[facility] Co de Phone Number [facility] [place] [address] * (ABNORMAL) Basic Metabolic Panel (07/31/2024 1:08 AM EST) Pathologist [facility] Glucose 97 65 - 199 mg/dL 07/31/2024 1:46 AM [facility] Comment:Glucose Concentratio n >=200 mg/dL plus symptoms is consistent with Diabetes Mellitus. Blood Urea Nitrogen 11 10 - 20 mg/dL 07/31/2024 1:46 AM [facility] Creatinine 0.96 0.80 - 1.50 mg/dL 07/31/2024 1:46 AM [facility] Sodium 140 135 - 145 mMol/L 07/31/2024 1:46 AM [facility] Potassium 4.1 3.5 - 5.0 mMol/L 07/31/2024 1:46 AM EST [facility] Chloride 110(H) 98 - 107 mMol/L 07/31/2024 1:46 AM EST [facility] Carbon Dioxide 24 22 - 31 mMol/L 07/31/2024 1:46 AM [facility] Anion Gap 6 5 - 15 mMol/L 07/31/2024 1:46 AM [facility] Calcium 7.7(L) 8.5 - 10.5 mg/dL 07/31/2024 1:46 AM [facility] Est Glomerular Filtration Rate - Male 84 mL/min/1. 73 m?? 07/31/2024 1:46 AM [facility] Comment: This patient's [...] AM EST Bridgette Stauffer MD CHEMISTRY ORDERABLES [facility] [place] [address] * (ABNORMAL) Hepatic Function Panel (07/31/2024 1:08 AM EST) Albumin 3.1(L) 3.2 - 5.2 g/dL 07/31/2024 1:46 AM EST [facility] Aspartate Aminotransferase 192(H) <=39 unit/L 07/31/2024 1:46 AM EST [facility] Alanine Aminotransferase 59(H) 0 - 55 unit/L 07/31/2024 1:46 AM EST [facility] Alkaline Phosphatase 46 40 - 130 unit/L 07/31/2024 1:46 AM [facility] Bilirubin, Total 0.4 <=1.3 mg/dL 07/31/2024 1:46 AM [facility] Bilirubin, Direct <0.2 0.0 - 0.3 mg/dL 07/31/2024 1:46 AM [facility] Protein, Total 5.0(L) 6.1 - 8.0 g/dL 07/31/2024 1:46 AM [facility] Blood VENOUS BLOOD SPECIMEN / Unknown Venipuncture / Unknown 07/31/2024 1:08 AM EST 07/31/2024 1:18 AM EST Krystal Parker MD CHEMISTRY ORDERABLES Performing Organization Address City/[facility] Co de Phone Number [facility] [place] [address] * POC, GLUCOSE (07/30/2024 8:03 PM EST) Glucometer, POC 86 65 - 199 mg/dL 07/30/2024 8:03 PM EST [facility] Comment:Supplemental ranges: <140 mg/dL before meals <180 mg/dL all other times of the day. Blood CAPILLARY BLOOD / Unknown 07/30/2024 8:03 PM EST 07/30/2024 8:03 PM EST Krystal Parker MD POINT OF CARE TEST O RDERABLES Performing Organization Address City/[facility]/ZIP Co de Phone Number [facility] [place] [address] * Potassium (07/30/2024 8:03 PM EST) Potassium 3.8 3.5 - 5.0 mMol/L 07/30/2024 9:13 PM EST [facility] Blood VENOUS BLOOD SPECIMEN / Unknown Venipuncture / Unknown 07/30/2024 8:03 PM EST 07/30/2024 8:22 PM EST Aubree Silverio MD CHEMISTRY ORDERABL ES Performing Organization Address [facility]/ZIP Co de Phone Number [facility] [place] [address] * POC, GLUCOSE (07/30/2024 6:23 PM EST) Glucometer, POC 93 65 - 199 mg/dL 07/30/2024 6:24 PM EST [facility] Comment:Supplemental ranges: <140 mg/dL before meals <180 mg/dL all other times of the day. Blood CAPILLARY BLOOD / Unknown 07/30/2024 6:23 PM EST 07/30/2024 6:24 PM EST Krystal Parker MD POINT OF CARE TEST O JOSH Performing Organization Address [facility] Co de Phone Number [facility] [place] [address] * POC, GLUCOSE (07/30/2024 5:08 PM EST) Glucometer, POC 78 65 - 199 mg/dL 07/30/2024 5:08 PM EST [facility] Comment:Supplemental ranges: <140 mg/dL before meals <180 mg/dL all other times of the day. Blood CAPILLARY BLOOD / Unknown 07/30/2024 5:08 PM EST 07/30/2024 5:08 PM EST Krystal Parker MD POINT OF CARE TEST O JOSH Performing Organization Address [facility] Co de Phone Number [facility] [place] [address] * (ABNORMAL) Phosphorus (07/30/2024 3:08 PM EST) Phosphorus 2.1(L) 2.5 - 4.5 mg/dL 07/30/2024 3:58 PM EST [facility] Blood VENOUS BLOOD SPECIMEN / Unknown Venipuncture / Unknown 07/30/2024 3:08 PM EST 07/30/2024 3:12 PM EST Aubree Silverio MD CHEMISTRY ORDERABL ES Performing Organization Address [facility]/ZIP Co de Phone Number [facility] [place] [address] * Magnesium (07/30/2024 3:08 PM EST) Magnesium 0.90 0.69 - 1.07 mMol/L 07/30/2024 3:58 PM EST [facility] Blood VENOUS BLOOD SPECIMEN / Unknown Venipuncture / Unknown 07/30/2024 3:08 PM EST 07/30/2024 3:12 PM EST Aubree Silverio MD CHEMISTRY ORDERABL ES Performing Organization Address City/[facility]/ZIP Co de Phone Number [facility] [place] [address] * (ABNORMAL) Basic Metabolic Panel (07/30/2024 3:08 PM EST) Glucose 105 65 - 199 mg/dL 07/30/2024 4:17 PM [facility] Comment:Glucose Concentratio n >=200 mg/dL plus symptoms is consistent with Diabetes Mellitus. Blood Urea Nitrogen 13 10 - 20 mg/dL 07/30/2024 4:17 PM EST [facility] Creatinine 1.01 0.80 - 1.50 mg/dL 07/30/2024 4:17 PM [facility] Sodium 141 135 - 145 mMol/L 07/30/2024 4:17 PM [facility] Potassium 3.4(L) 3.5 - 5.0 mMol/L 07/30/2024 4:17 PM [facility] Chloride 109(H) 98 - 107 mMol/L 07/30/2024 4:17 PM [facility] Carbon Dioxide 21(L) 22 - 31 mMol/L 07/30/2024 4:17 PM EST [facility] Anion Gap 11 5 - 15 mMol/L 07/30/2024 4:17 PM EST [facility] Calcium 7.9(L) 8.5 - 10.5 mg/dL 07/30/2024 4:17 PM EST [facility] Est Glomerular Filtration Rate - Male 79 mL/min/1. 73 m?? 07/30/2024 4:17 PM EST [facility] Comment: This patient's [...] EST Aubree Silverio MD CHEMISTRY ORDERABL ES [facility] [place] [address] * ECHO LMTD W CONTRAST W LMTD SPEC DOPP COLOR DOPP (07/30/2024 11:42 AM EST) Anatomical Region Laterality Modality Cardiac Other 07/30/2024 10:2 2 AM EST Narrative 07/30/2024 12:34 PM EST [address] [place] [address] ? Echocardiogram Report Name: KOREY OMNTOYA ? Study Date: 07/30/2024 10:22 AMBP: 124/66 mmHg : 1950 ? Height: 168 cm ? Account: [id number] Age: 74 yrs ? Weight: 65 kg Gender: Male ?BSA: 1.7 m2 Ordering Physician: Aubree Silverio MD Referring Physician: CHAPARRO FERRERA Performed By: OMERO Millan Reason For Study: ST elevation myocardial infarction involving left anterior descending (LAD) coronary artery Interpreting Fellow: Ivan Hernandez. Exam Location: [facility]. Interpretation Summary Left ventricle is [...] to the overnight study by the telephone clerks supervisor fellow the impella position is stable. 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 Procedure Limited - 43261. Image enhancement Definity was used for both [...] Procedure Note Kathleen Banda MD - 07/30/[address] [place] [id number] Echocardiogram Report Name: KOREY MONTOYA Kyrie Study Date: 410:22 AMBP: 124/66 mmHg : 1950 Height: 168 cm Account: [id number] Age: 74 yrs Weight: 65 kg Gender: Male BSA: 1.7 m2 Ordering Physician: Aubree Silverio MD Referring Physician: CHAPARRO FERRERA Performed By: OMERO Millan Reason For Study: ST elevation myocardial infarction involving leftanterior descending (LAD) coronary artery Interpreting Fellow: Ivan Hernandez. Exam Location: [facility]. Interpretation Summary Left ventricle is [...] to the overnight study by the telephone clerks supervisor fellow the impella positionis stable. The global left ventricular systolic function has improvedpredominantly via recruitment outside the LAD territory which remains akinetic. Procedure Limited - 25787. Image enhancement Definity was used for both [...] 65 - 199 mg/dL 07/30/2024 11:17 AM [facility] Comment:Supplemental ranges: <140 mg/dL before meals <180 mg/dL all other times of the day. Blood CAPILLARY BLOOD / Unknown 07/30/2024 11:17 AM EST 07/30/2024 11:17 AM EST Aubree Silverio MD POINT OF CARE TEST ORDERABLES Performing Organization Address City/State/[facility] Co de Phone Number [facility] [place] [address] * (ABNORMAL) Blood Gas, Arterial POC (07/30/2024 8:16 AM EST) pH, Arterial 7.44 7.35 - 7.45 07/30/2024 8:17 AM [facility] PCO2, Arterial 29(L) 35 - 45 mmHg 07/30/2024 8:17 AM [facility] PO2, Arterial 109(H) 85 - 104 mmHg 07/30/2024 8:17 AM [facility] Bicarbonate, Arterial 19.4(L) 20.0 - 26.0 mmol/L 07/30/2024 8:17 AM [facility] Base Excess, Arterial -4.7(L) -3.0 - 3.0 mmol/L 07/30/2024 8:17 AM [facility] Hemoglobin, Arterial 12.2(L) 13.7 - 16.5 g/dL 07/30/2024 8:17 AM [facility] Oxyhemoglobin, Arterial 97.1(H) 94.0 - 97.0 % 07/30/2024 8:17 AM [facility] Carboxyhemoglob in, Arterial 1.0 % 07/30/2024 8:17 AM [facility] Comment: Nonsmokers: 0.5-1.5% COHB ?? Smokers: Variable ??but usually less than 10% ?? Toxic: 20-30% COHB ?? Lethal: Greater than 60% COHB Methemoglobin, Arterial 0.1 <=1.5 % 07/30/2024 8:17 AM [facility] Sodium, Arterial 132(L) 135 - 145 mmol/L 07/30/2024 8:17 AM [facility] Potassium, Arterial 3.9 3.5 - 5.0 mmol/L 07/30/2024 8:17 AM [facility] Chloride, Arterial 105 98 - 107 mmol/L 07/30/2024 8:17 AM [facility] Lactate, Arterial 1.2 0.5 - 2.2 mmol/L 07/30/2024 8:17 AM [facility] Fraction of Inspired Oxygen 21 % 07/30/2024 8:17 AM [facility] PF Ratio 519 Ratio 07/30/2024 8:17 AM [facility] Comment:PF ratio calculated using the non-temperature corrected pO2 result. IONIZED CALCIUM, ARTERIAL 1.15 1.15 - 1.33 mmol/L 07/30/2024 8:17 AM [facility] Blood ARTERIAL BLOOD / Unknown 07/30/2024 8:16 AM EST 07/30/2024 8:17 AM EST Aubree Silverio MD POINT OF CARE TEST ORDERABLES [facility] [place] [address] * (ABNORMAL) Troponin - Single (07/30/2024 8:09 AM EST) Troponin-T, High Sensitivity 8,651(H) <=22 ng/L 07/30/2024 9:06 AM EST [facility] Comment: This patient's [...] troponin value can be found in the [facility] Laboratory Test Catalog Troponin - [email or web address]/files/[email or web address] Reference: Fourth [place] Definition of Myocardial Infarction. Journal of the [place] [employer] 2018;72:3102-5786 Blood VENOUS BLOOD SPECIMEN / Unknown Venipuncture / Unknown 07/30/2024 8:09 AM EST 07/30/2024 8:26 AM EST Aubree Silverio MD CHEMISTRY ORDERABL ES [facility] [place] [address] * POC, GLUCOSE (07/30/2024 7:40 AM EST) Shaheen Jc Glucometer, POC 111 65 - 199 mg/dL 07/30/2024 7:40 AM EST [facility] Comment:Supplemental ranges: <140 mg/dL before meals <180 mg/dL all other times of the day. Blood CAPILLARY BLOOD / Unknown 07/30/2024 7:40 AM EST 07/30/2024 7:40 AM EST Aubree Silverio MD POINT OF CARE TEST ORDERABLES [facility] [place] [address] * (ABNORMAL) CBC (with Diff) (07/30/2024 2:11 AM EST) White Blood Cell 11.25(H) 4.00 - 9.50 x10(3)/mc L 07/30/2024 2:33 AM [facility] Red Blood Cell 4.50(L) 4.58 - 5.54 x10(6)/mc L 07/30/2024 2:33 AM [facility] Hemoglobin 12.2(L) 13.7 - 16.5 g/dL 07/30/2024 2:33 AM [facility] Hematocrit 37.1(L) 40.5 - 48.5 % 07/30/2024 2:33 AM [facility] Mean Cell Volume 82.4(L) 82.9 - 93.1 fL 07/30/2024 2:33 AM [facility] Mean Cell Hemoglobin 27.1(L) 27.5 - 32.1 pg 07/30/2024 2:33 AM [facility] Mean Cell Hemoglobin Concentration 32.9 32.0 - 35.7 g/dL 07/30/2024 2:33 AM [facility] Platelet 166 145 - 357 x10(3)/mc L 07/30/2024 2:33 AM [facility] Mean Platelet Volume 10.6 7.6 - 12.9 fL 07/30/2024 2:33 AM [facility] RDW Standard Deviation 44.6 36.0 - 45.0 fL 07/30/2024 2:33 AM [facility] RDW coefficient of variation 14.6(H) 11.4 - 13.8 % 07/30/2024 2:33 AM [facility] NRBC% auto 0.0 % 07/30/2024 2:33 AM [facility] NRBC Absolute <0.01 <0.01 x10(3)/mc L 07/30/2024 2:33 AM [facility] Neutrophil % 88.9 % 07/30/2024 2:33 AM [facility] Neutrophil Absolute (ANC) - Automated 10.00(H) 1.70 - 6.10 x10(3)/mc L 07/30/2024 2:33 AM [facility] Lymph % 5.1 % 07/30/2024 2:33 AM [facility] Lymph Absolute 0.57(L) 0.90 - 3.20 x10(3)/mc L 07/30/2024 2:33 AM [facility] Monocyte % 5.4 % 07/30/2024 2:33 AM [facility] Monocyte Absolute 0.61 0.30 - 0.90 x10(3)/mc L 07/30/2024 2:33 AM [facility] Eos % 0.0 % 07/30/2024 2:33 AM [facility] Eos Absolute <0.04 0.00 - 0.40 x10(3)/mc L 07/30/2024 2:33 AM [facility] Basophil % 0.2 % 07/30/2024 2:33 AM [facility] Baso Absolute <0.04 0.00 - 0.10 x10(3)/mc L 07/30/2024 2:33 AM [facility] Immature Gran % 0.4 % 2:33 AM [facility] Immature Gran Absolute 0.05(H) 0.00 - 0.04 x10(3)/mc L 07/30/2024 2:33 AM [facility] Blood VENOUS BLOOD SPECIMEN / Unknown Venipuncture / Unknown 07/30/2024 2:11 AM EST 07/30/2024 2:22 AM EST Bridgette Stauffer MD HEMATOLOGY ORDERABLE S [facility] [place] [address] * Magnesium (07/30/2024 2:11 AM EST) Magnesium 1.01 0.69 - 1.07 mMol/L 07/30/2024 2:51 AM [facility] Blood VENOUS BLOOD SPECIMEN / Unknown Venipuncture / Unknown 07/30/2024 2:11 AM EST 07/30/2024 2:22 AM EST Bridgette Stauffer MD CHEMISTRY ORDERABLES Performing Organization Address City/[facility]/ZIP Co de Phone Number [facility] [place] [address] * (ABNORMAL) Basic Metabolic Panel (07/30/2024 2:11 AM EST) Pathologist [facility] Glucose 190 65 - 199 mg/dL 07/30/2024 2:51 AM [facility] Comment:Glucose Concentratio n >=200 mg/dL plus symptoms is consistent with Diabetes Mellitus. Blood Urea Nitrogen 15 10 - 20 mg/dL 07/30/2024 2:51 AM [facility] Creatinine 0.88 0.80 - 1.50 mg/dL 07/30/2024 2:51 AM [facility] Sodium 135 135 - 145 mMol/L 07/30/2024 2:51 AM [facility] Potassium 4.9 3.5 - 5.0 mMol/L 07/30/2024 2:51 AM [facility] Chloride 105 98 - 107 mMol/L 07/30/2024 2:51 AM [facility] Carbon Dioxide 19(L) 22 - 31 mMol/L 07/30/2024 2:51 AM [facility] Anion Gap 11 5 - 15 mMol/L 07/30/2024 2:51 AM EST [facility] Calcium 7.7(L) 8.5 - 10.5 mg/dL 07/30/2024 2:51 AM EST [facility] Est Glomerular Filtration Rate - Male 91 mL/min/1. 73 m?? 07/30/2024 2:51 AM EST [facility] Comment: This patient's [...] AM EST Bridgette Stauffer MD CHEMISTRY ORDERABLES [facility] [place] [address] * (ABNORMAL) Cooximetry, POC (07/30/2024 1:00 AM EST) pO2, Coox 28 mmHg 07/30/2024 1:03 AM EST [facility] Hemoglobin, Coox 12.7(L) 13.7 - 16.5 g/dL 07/30/2024 1:03 AM EST [facility] Oxyhemoglobin, Coox 54.9 % 07/30/2024 1:03 AM [facility] Carboxyhemoglo bin, Coox 1.0 % 07/30/2024 1:03 AM [facility] Comment: Nonsmokers: 0.5-1.5% COHB ?? Smokers: Variable ??but usually less than 10% ?? Toxic: 20-30% COHB ?? Lethal: Greater than 60% COHB Methemoglobin, Coox 0.0 <=1.5 % 07/30/2024 1:03 AM [facility] Blood (Mixed Venous) 07/30/2024 1:00 AM EST 07/30/2024 1:03 AM EST Aubree Silverio MD POINT OF CARE TEST ORDERABLES Performing Organization Address City/State/[facility] Co de Phone Number [facility] [place] [address] * (ABNORMAL) Blood Gas, Arterial POC (07/30/2024 12:57 AM EST) pH, Arterial 7.38 7.35 - 7.45 07/30/2024 12:58 AM [facility] PCO2, Arterial 34(L) 35 - 45 mmHg 07/30/2024 12:58 AM [facility] PO2, Arterial 141(H) 85 - 104 mmHg 07/30/2024 12:58 AM [facility] Bicarbonate, Arterial 19.5(L) 20.0 - 26.0 mmol/L 07/30/2024 12:58 AM [facility] Base Excess, Arterial -5.6(L) -3.0 - 3.0 mmol/L 07/30/2024 12:58 AM [facility] Hemoglobin, Arterial 13.0(L) 13.7 - 16.5 g/dL 07/30/2024 12:58 AM [facility] Oxyhemoglobin, Arterial 98.4(H) 94.0 - 97.0 % 07/30/2024 12:58 AM [facility] Carboxyhemoglobin , Arterial 0.4 % 07/30/2024 12:58 AM [facility] Comment: Nonsmokers: 0.5-1.5% COHB ?? Smokers: Variable ??but usually less than 10% ?? Toxic: 20-30% COHB ?? Lethal: Greater than 60% COHB Methemoglobin, Arterial 0.1 <=1.5 % 07/30/2024 12:58 AM [facility] Sodium, Arterial 130(L) 135 - 145 mmol/L 07/30/2024 12:58 AM [facility] Potassium, Arterial 4.5 3.5 - 5.0 mmol/L 07/30/2024 12:58 AM [facility] Chloride, Arterial 104 98 - 107 mmol/L 07/30/2024 12:58 AM [facility] Lactate, Arterial 1.3 0.5 - 2.2 mmol/L 07/30/2024 12:58 AM [facility] Flow Rate 2.0 L/min 07/30/2024 12:58 AM [facility] IONIZED CALCIUM, ARTERIAL 1.12(L) 1.15 - 1.33 mmol/L 07/30/2024 12:58 AM [facility] Glucose, Arterial 184 65 - 199 mg/dL 07/30/2024 12:58 AM [facility] Comment:Glucose Concentratio n >=200 mg/dL plus symptoms is consistent with Diabetes Mellitus. Blood ARTERIAL BLOOD / Unknown 07/30/2024 12:57 AM EST 07/30/2024 12:58 AM EST Aubree Silverio MD POINT OF CARE TEST ORDERABLES [facility] [place] [address] * (ABNORMAL) Troponin - Single (07/29/2024 10:31 PM EST) Troponin-T, High Sensitivity >10,000(H ) <=22 ng/L 07/29/2024 11:03 PM [facility] Comment: This patient's troponin T [...] troponin value can be found in the [facility] Test Catalog Troponin - https://[facility] [email or web address]/catalogs/565/files/21498 Reference: Fourth [place] Definition of Myocardial Infarction. Journal of the [place] [employer] 2018;72:9943-9808 Blood VENOUS BLOOD SPECIMEN / Unknown Venipuncture / Unknown 07/29/2024 10:31 PM EST 07/29/2024 10:36 PM EST Yrn Ward MD CHEMISTRY ORDERABL ES Performing Organization Address City/[facility]/ZIP Co de Phone Number [facility] [place] [address] * Potassium (07/29/2024 8:11 PM EST) Pathologist [facility] Potassium 4.1 3.5 - 5.0 mMol/L 07/29/2024 8:52 PM EST [facility] Blood VENOUS BLOOD SPECIMEN / Unknown Venipuncture / Unknown 07/29/2024 8:11 PM EST 07/29/2024 8:16 PM EST Aubree Silverio MD CHEMISTRY ORDERABL ES [facility] [place] [address] * (ABNORMAL) Troponin - Single (07/29/2024 8:11 PM EST) Troponin-T, High Sensitivity >10,000(H ) <=22 ng/L 07/29/2024 8:52 PM EST [facility] Comment: This patient's [...] troponin value can be found in the [facility] Test Catalog Troponin - https://[facility].[email or web address]/catalogs/565/files/77385 Reference: Fourth [place] Definition of Myocardial Infarction. Journal of the [place] [employer] 2018;72:5352-5515 Blood VENOUS BLOOD SPECIMEN / Unknown Venipuncture / Unknown 07/29/2024 8:11 PM EST 07/29/2024 8:16 PM EST Aubree Silverio MD CHEMISTRY ORDERABL ES Performing Organization Address City/State/[facility] Co de Phone Number [facility] [place] [address] * (ABNORMAL) Phosphorus (07/29/2024 8:11 PM EST) Phosphorus 2.1(L) 2.5 - 4.5 mg/dL 07/29/2024 8:52 PM EST [facility] Blood VENOUS BLOOD SPECIMEN / Unknown Venipuncture / Unknown 07/29/2024 8:11 PM EST 07/29/2024 8:16 PM EST Aubree Silverio MD CHEMISTRY ORDERABL ES Performing Organization Address City/State/[facility] Co de Phone Number [facility] [place] [address] * POC, GLUCOSE (07/29/2024 8:09 PM EST) Glucometer, POC 142 65 - 199 mg/dL 07/29/2024 8:09 PM EST [facility] Comment:Supplemental ranges: <140 mg/dL before meals <180 mg/dL all other times of the day. Blood CAPILLARY BLOOD / Unknown 07/29/2024 8:09 PM EST 07/29/2024 8:09 PM EST Aubree Silverio MD POINT OF CARE TEST ORDERABLES Performing Organization Address [facility] Co de Phone Number [facility] [place] [address] * ABORH RECHECK (07/29/2024 6:43 PM EST) ABORH Recheck AB POSITIVE 07/29/2024 10:13 PM EST [facility] Blood VENOUS BLOOD SPECIMEN / Unknown Venipuncture / Unknown 07/29/2024 6:43 PM EST 07/29/2024 7:15 PM EST Aubree Silverio MD BLOOD BANK LAB ORD ERABLES Performing Organization Address [facility] Co de Phone Number [facility] [place] [address] * POC, GLUCOSE (07/29/2024 5:57 PM EST) Glucometer, POC 166 65 - 199 mg/dL 07/29/2024 5:57 PM EST [facility] Comment:Supplemental ranges: <140 mg/dL before meals <180 mg/dL all other times of the day. Blood CAPILLARY BLOOD / Unknown 07/29/2024 5:57 PM EST 07/29/2024 5:57 PM EST Aubree Silverio MD POINT OF CARE TEST ORDERABLES [facility] [place] [address] * Type and screen ([facility]/JONG/MAGALIE) (07/29/2024 5:56 PM EST) [facility] ABORH Type AB POSITIVE 07/29/2024 9:44 PM EST [facility] PATIENT HISTORY Not Found 07/29/2024 9:44 PM EST [facility] Expires at [id number] on: 08/01/2024 07/29/2024 9:44 PM EST [facility] ANTIBODY SCREEN AUTOMATED Negative 07/29/2024 9:44 PM EST [facility] T&S only valid at [facility] 07/29/2024 9:44 PM EST [facility] Blood VENOUS BLOOD SPECIMEN / Unknown Venipuncture / Unknown 07/29/2024 5:56 PM EST 07/29/2024 6:07 PM EST Narrative [facility] - 07/29/2024 9:44 PM EST This Type and Screen result is only valid at the [facility] Aubree Silverio MD BLOOD BANK LAB ORD ERABLES Performing Organization Address City/[facility]/ZIP Co de Phone Number [facility] [place] [address] * (ABNORMAL) Troponin - Single (07/29/2024 4:52 PM EST) [facility] Troponin-T, High Sensitivity >10,000(H ) <=22 ng/L 07/29/2024 5:25 PM EST [facility] Comment: This patient's [...] troponin value can be found in the [facility] Test Catalog Troponin - https://[facility].testcatalog.org/catalogs/565/files/72341 Reference: Fourth [place] Definition of Myocardial Infarction. Journal of the [place] College [employer] 2018;72:4491-6513 Blood VENOUS BLOOD SPECIMEN / Unknown Venipuncture / Unknown 07/29/2024 4:52 PM EST 07/29/2024 4:57 PM EST Aubree Silverio MD CHEMISTRY ORDERABL ES Performing Organization Address [facility]/ZIP Co de Phone Number [facility] [place] [address] * EKG 12 Lead (07/29/2024 4:21 PM EST) Ventricular rate 72 BPM MUSE SYSTEM Atrial Rate 72 BPM MUSE SYSTEM P-R Interval 168 ms MUSE SYSTEM QRS Duration 82 ms MUSE SYSTEM Q-T Interval 392 ms MUSE SYSTEM QTC Calculated (Bezet) 429 ms MUSE SYSTEM Calculated P [place] 71 degrees MUSE SYSTEM Calculated R [place] 77 degrees MUSE SYSTEM Calculated T [place] 28 degrees MUSE SYSTEM INTERPRETATION Sinus rhythm [...] Silverio MD ECG ORDERABLES Performing Organization Address City/[facility]/ZIP Co de Phone Number MUSE SYSTEM * (ABNORMAL) Blood Gas, Arterial POC (07/29/2024 4:21 PM EST) pH, Arterial 7.37 7.35 - 7.45 07/29/2024 4:22 PM [facility] PCO2, Arterial 36 35 - 45 mmHg 07/29/2024 4:22 PM [facility] PO2, Arterial 71(L) 85 - 104 mmHg 07/29/2024 4:22 PM [facility] Bicarbonate, Arterial 20.4 20.0 - 26.0 mmol/L 07/29/2024 4:22 PM [facility] Base Excess, Arterial -4.8(L) -3.0 - 3.0 mmol/L 07/29/2024 4:22 PM [facility] Hemoglobin, Arterial 12.2(L) 13.7 - 16.5 g/dL 07/29/2024 4:22 PM [facility] Oxyhemoglobin, Arterial 93.8(L) 94.0 - 97.0 % 07/29/2024 4:22 PM [facility] Carboxyhemoglobin , Arterial 0.5 % 07/29/2024 4:22 PM [facility] Comment: Nonsmokers: 0.5-1.5% COHB ?? Smokers: Variable ??but usually less than 10% ?? Toxic: 20-30% COHB ?? Lethal: Greater than 60% COHB Methemoglobin, Arterial 0.3 <=1.5 % 07/29/2024 4:22 PM [facility] Sodium, Arterial 134(L) 135 - 145 mmol/L 07/29/2024 4:22 PM [facility] Potassium, Arterial 4.2 3.5 - 5.0 mmol/L 07/29/2024 4:22 PM [facility] Chloride, Arterial 107 98 - 107 mmol/L 07/29/2024 4:22 PM [facility] Lactate, Arterial 1.5 0.5 - 2.2 mmol/L 07/29/2024 4:22 PM [facility] Fraction of Inspired Oxygen 21 % 07/29/2024 4:22 PM [facility] PF Ratio 338 Ratio 07/29/2024 4:22 PM [facility] Comment:PF ratio calculated using the non-temperature corrected pO2 result. IONIZED CALCIUM, ARTERIAL 1.12(L) 1.15 - 1.33 mmol/L 07/29/2024 4:22 PM [facility] Glucose, Arterial 181 65 - 199 mg/dL 07/29/2024 4:22 PM [facility] Comment:Glucose Concentratio n >=200 mg/dL plus symptoms is consistent with Diabetes Mellitus. Blood ARTERIAL BLOOD / Unknown 07/29/2024 4:21 PM EST 07/29/2024 4:22 PM EST Aubree Silverio MD POINT OF CARE TEST ORDERABLES Performing Organization Address City/[facility]/ZIP Co de Phone Number [facility] [place] [address] * POC, GLUCOSE (07/29/2024 4:19 PM EST) Glucometer, POC 185 65 - 199 mg/dL 07/29/2024 4:19 PM [facility] Comment:Supplemental ranges: <140 mg/dL before meals <180 mg/dL all other times of the day. Blood CAPILLARY BLOOD / Unknown 07/29/2024 4:19 PM EST 07/29/2024 4:19 PM EST Aubree Silverio MD POINT OF CARE TEST ORDERABLES [facility] [place] [address] * Blood culture (07/29/2024 4:08 PM EST) Blood Culture No growth at 120 hours 08/03/2024 5:01 PM EST [facility] Blood VENOUS BLOOD SPECIMEN / Unknown Venipuncture / Unknown 07/29/2024 4:08 PM EST 07/29/2024 4:15 PM EST Aubree Silverio MD MICROBIOLOGY - BLO OD ORDERABLES Performing Organization Address [facility] Co de Phone Number [facility] [place] [address] * Blood culture (07/29/2024 4:08 PM EST) Blood Culture No growth at 120 hours 08/03/2024 5:01 PM EST [facility] Blood VENOUS BLOOD SPECIMEN / Unknown Venipuncture / Unknown 07/29/2024 4:08 PM EST 07/29/2024 4:26 PM EST Aubree Silverio MD MICROBIOLOGY - BLO OD ORDERABLES Performing Organization Address [facility] de Phone Number [facility] [place] [address] * XR Chest One View (07/29/2024 2:30 PM EST) WORKSTATION ID [id number] DH RAD Anatomical Region Laterality Modality Chest [...] who have questions please contact the health home care provider that requested your imaging first. ? Electronically signed by: Chris Candelaria MD, [facility] ([phone]), at 07/29/2024 3:21 PM Narrative 07/29/2024 3:21 [...] patients who have questions please contactthe health home care provider that requested your imaging first. Electronically signed by: Chris Candelaria MD, [facility]([phone]), at 07/29/2024 3:21 PM Vahe Marvin MD IMG DX ORDERABLES * (ABNORMAL) APTT (07/29/2024 2:03 PM EST) Partial Thromboplastin Time >160(HHH) 25 - 37 sec 07/29/2024 2:56 PM EST [facility] Blood VENOUS BLOOD SPECIMEN / Unknown Venipuncture / Unknown 07/29/2024 2:03 PM EST 07/29/2024 2:13 PM EST Vahe Marvin MD HEMATOLOGY ORDERABLE S Performing Organization Address City/[facility]/ZIP Co de Phone Number [facility] [place] [address] * (ABNORMAL) Prothrombin Time (07/29/2024 2:03 PM EST) Prothrombin Time 14.2(H) 9.4 - 12.5 sec 07/29/2024 2:56 PM EST [facility] International Normalization Ratio 1.3 <=4.9 07/29/2024 2:56 PM EST [facility] Comment: An INR [...] MD HEMATOLOGY ORDERABLE S Performing Organization Address [facility] Co de Phone Number [facility] [place] [address] * CRP, acute inflammation (07/29/2024 2:03 PM EST) C-Reactive Protein <3.0 <=4.9 mg/L 07/29/2024 2:52 PM EST [facility] Blood VENOUS BLOOD SPECIMEN / Unknown Venipuncture / Unknown 07/29/2024 2:03 PM EST 07/29/2024 2:14 PM EST Vahe Marvin MD CHEMISTRY ORDERABLES Performing Organization Address City/[facility]/ZIP Co de Phone Number [facility] [place] [address] * Lipid Panel (Reflex Direct LDL) (07/29/2024 [...] mg/dL HDL Cholesterol 58 mg/dL 2:52 PM [facility] Comment:Males: High Risk: <4 0 mg/dL LDL Cholesterol 64 mg/dL 4 2:52 PM [facility] Comment: Desirable: <100 mg/dL Above Desirable: 100-129 mg/dL Borderline High: 130-159 mg/dL High: 160-189 mg/dL Very High: > or =190 mg/dL Note: LDL calculation updated to the NIH LDL formula as of 04/15/2024 Non-HDL Cholesterol 75 mg/dL 07/29/2024 2:52 PM [facility] Comment: Desirable: <130 mg/dL Above [...] artery disease) Vahe Marvin MD CHEMISTRY ORDERABLES [facility] [place] [address] * TSH [place] (07/29/2024 2:03 PM EST) Thyroid Stimulating Hormone 0.70 0.27 - 4.20 mcIU/mL 07/29/2024 2:52 PM EST [facility] Blood VENOUS BLOOD SPECIMEN / Unknown Venipuncture / Unknown 07/29/2024 2:03 PM EST 07/29/2024 2:14 PM EST Vahe Marvin MD CHEMISTRY ORDERABLES [facility] [place] [address] * Hemoglobin A1c (07/29/2024 2:03 PM EST) Pathologist [facility] Hemoglobin A1c 5.3 4.3 - 5.6 % 07/29/2024 2:41 PM EST [facility] Comment: Per ADA [...] red blood cell turnover may not be ocean import representative of glycemic control. Reference Interval: 4.3 - 5.6% 5.7 - 6.4%: Consistent with prediabetes >=6.5%: Consistent with diagnosis of diabetes mellitus Estimated Average Glucose 07/29/2024 2:41 PM EST [facility] Comment:Estimated Average Gl [...] into estimated average glucose values. ??Diabetes Care 2008:31(8):0376-6799. Additional resources are available on the ADA website (diabetes.org). Vahe Marvin MD CHEMISTRY ORDERABLES [facility] [place] [address] * (ABNORMAL) CBC (with Diff) (07/29/2024 2:03 PM EST) White Blood Cell 19.50(H) 4.00 - 9.50 x10(3)/mc L 07/29/2024 2:18 PM EST [facility] Red Blood Cell 4.81 4.58 - 5.54 x10(6)/mc L 07/29/2024 2:18 PM [facility] Hemoglobin 13.1(L) 13.7 - 16.5 g/dL 07/29/2024 2:18 PM EST [facility] Hematocrit 40.1(L) 40.5 - 48.5 % 07/29/2024 2:18 PM EST [facility] Mean Cell Volume 83.4 82.9 - 93.1 fL 07/29/2024 2:18 PM EST [facility] Mean Cell Hemoglobin 27.2(L) 27.5 - 32.1 pg 07/29/2024 2:18 PM [facility] Mean Cell Hemoglobin Concentration 32.7 32.0 - 35.7 g/dL 07/29/2024 2:18 PM EST [facility] Platelet 236 145 - 357 x10(3)/mc L 07/29/2024 2:18 PM [facility] Mean Platelet Volume 10.6 7.6 - 12.9 fL 07/29/2024 2:18 PM EST [facility] RDW Standard Deviation 43.7 36.0 - 45.0 fL 07/29/2024 2:18 PM [facility] RDW coefficient of variation 14.3(H) 11.4 - 13.8 % 07/29/2024 2:18 PM [facility] NRBC% auto 0.0 % 07/29/2024 2:18 PM [facility] NRBC Absolute <0.01 <0.01 x10(3)/mc L 07/29/2024 2:18 PM [facility] Neutrophil % 93.6 % 07/29/2024 2:18 PM [facility] Neutrophil Absolute (ANC) - Automated 18.28(H) 1.70 - 6.10 x10(3)/mc L 07/29/2024 2:18 PM [facility] Lymph % 2.7 % 07/29/2024 2:18 PM [facility] Lymph Absolute 0.52(L) 0.90 - 3.20 x10(3)/mc L 07/29/2024 2:18 PM [facility] Monocyte % 2.9 % 07/29/2024 2:18 PM [facility] Monocyte Absolute 0.56 0.30 - 0.90 x10(3)/mc L 07/29/2024 2:18 PM [facility] Eos % 0.0 % 07/29/2024 2:18 PM [facility] Eos Absolute <0.04 0.00 - 0.40 x10(3)/mc L 07/29/2024 2:18 PM [facility] Basophil % 0.3 % 07/29/2024 2:18 PM [facility] Baso Absolute 0.05 0.00 - 0.10 x10(3)/mc L 07/29/2024 2:18 PM [facility] Immature Gran % 0.5 % 2:18 PM [facility] Immature Gran Absolute 0.09(H) 0.00 - 0.04 x10(3)/mc L 07/29/2024 2:18 PM [facility] Blood VENOUS BLOOD SPECIMEN / Unknown Venipuncture / Unknown 07/29/2024 2:03 PM EST 07/29/2024 2:13 PM EST Vahe Marvin MD HEMATOLOGY ORDERABLE S [facility] [place] [address] * Phosphorus (07/29/2024 2:03 PM EST) Phosphorus 2.5 2.5 - 4.5 mg/dL 07/29/2024 2:52 PM EST [facility] Blood VENOUS BLOOD SPECIMEN / Unknown Venipuncture / Unknown 07/29/2024 2:03 PM EST 07/29/2024 2:14 PM EST Vahe Marvin MD CHEMISTRY ORDERABLES Performing Organization Address City/[facility]/ZIP Co de Phone Number [facility] [place] [address] * Magnesium (07/29/2024 2:03 PM EST) Pathologist [facility] Magnesium 0.70 0.69 - 1.07 mMol/L 07/29/2024 2:52 PM EST [facility] Blood VENOUS BLOOD SPECIMEN / Unknown Venipuncture / Unknown 07/29/2024 2:03 PM EST 07/29/2024 2:14 PM EST Vahe Marvin MD CHEMISTRY ORDERABLES [facility] [place] [address] * (ABNORMAL) Comprehensive metabolic panel (07/29/2024 2:03 PM EST) Glucose 243(H) 65 - 199 mg/dL 07/29/2024 3:11 PM EST [facility] Comment:Glucose Concentratio n >=200 mg/dL plus symptoms is consistent with Diabetes Mellitus. Blood Urea Nitrogen 13 10 - 20 mg/dL 07/29/2024 3:11 PM EST [facility] Creatinine 0.88 0.80 - 1.50 mg/dL 07/29/2024 3:11 PM [facility] Sodium 138 135 - 145 mMol/L 07/29/2024 3:11 PM [facility] Potassium 3.6 3.5 - 5.0 mMol/L 07/29/2024 3:11 PM [facility] Chloride 104 98 - 107 mMol/L 07/29/2024 3:11 PM [facility] Carbon Dioxide 19(L) 22 - 31 mMol/L 07/29/2024 3:11 PM [facility] Anion Gap 15 5 - 15 mMol/L 07/29/2024 3:11 PM [facility] Calcium 8.0(L) 8.5 - 10.5 [...] PM EST Vahe Marvin MD CHEMISTRY ORDERABLES [facility] [place] [address] * (ABNORMAL) Troponin - Single (07/29/2024 2:03 PM EST) Pathologist [facility] Troponin-T, High Sensitivity >10,000(H ) <=22 ng/L 07/29/2024 2:52 PM EST [facility] Comment: This patient's [...] troponin value can be found in the [facility] Test Catalog Troponin - https://[email or web address].org/catalogs/565/files/72801 Reference: Fourth [place] Definition of Myocardial Infarction. Journal of the [place] [employer] 2018;72:1357-6789 Blood VENOUS BLOOD SPECIMEN / Unknown Venipuncture / Unknown 07/29/2024 2:03 PM EST 07/29/2024 2:14 PM EST Vahe Marvin MD CHEMISTRY ORDERABLES [facility] [place] [address] * (ABNORMAL) Blood Gas, Venous POC (07/29/2024 2:01 PM EST) pH, Venous 7.30(L) 7.32 - 7.42 07/29/2024 2:02 PM EST [facility] PCO2, Venous 42 [...] - 107 mmol/L 07/29/2024 2:02 PM EST [facility] Glucose, Venous 229(H) 65 - 199 mg/dL 07/29/2024 2:02 PM EST [facility] Comment:Glucose Concentratio n >=200 mg/dL plus symptoms is consistent with Diabetes Mellitus. Lactate, Venous 3.1(H) 0.5 - 2.2 mmol/L 07/29/2024 2:02 PM EST [facility] Ionized Calcium, Venous 1.11(L) 1.15 - 1.33 mmol/L 07/29/2024 2:02 PM EST [facility] Blood VENOUS BLOOD SPECIMEN / Unknown 07/29/2024 2:01 PM EST 07/29/2024 2:02 PM EST Vahe Marvin MD POINT OF CARE TEST O RDERABLES Performing Organization Address City/State/[facility] Co de Phone Number [facility] [place] [address] * CARDIAC CATHETERIZATION (07/29/2024 1:20 PM EST) Anatomical Region Laterality Modality Other Narrative 07/29/2024 2:02 PM EST ?[facility] ? Cardiac Catheterization/Intervention Report ? Patient Name: Korey Montoya Driss ? Procedure Date: 07/29/2024 ? A #: [id number] ? Primary Physician: Vahe Marvin ? Case #: [id number] ? File Name: [id number] ? Catheterization Order Number: [id number] ? [facility] ? Final Report [place], [place] ? Patient Name: ? Korey P. Montoya ?ID#: [id number] ? : ?1950 ? Procedure Date: ? [...] procedure was Emergent. The indication for ?the phlebotomist lab assistant visit is ACS less than or equal [...] 3.5 guiding catheter and a 3.[address] [facility] [address] ??20 Mhz using ?Manual pullback. ??Imaging [...] A premounted 3.00 x 22 mm [place] (LOW) was deployed ? with a maximum [...] atmospheres. ??A premounted 3.00 x 08 mm [place] (LOW) ? was deployed with a maximum [...] dose administered prior to arrival in the phlebotomist lab assistant. ?Recommended anti-platelet/anti-thrombotic regimen: ?Start aspirin 81 mg daily now and continue for 12 months then stop. ?Start clopidogrel 75 mg daily now and continue for indefinitely. ?These recommendations are made at the time of the intervention. Patient ?and provider preferences or a changing clinical situation may require ?modification of this regimen. Consult [facility] Interventional Cardiology for ?questions. ?The 1 year [...] able ?to start weaning his inotropes/vasopressors. A [place] Colette catheter was ?placed demonstrating improvement in his hemodynamics and the impella site ?was perclosed and hemostatic gauze was applied with excellent result. ?WIll transfer to the [facility] for further management. ?The attending [...] ventricular assist device insertion, right heart ?catheterization, [place] (flow directed cath) insertion, access site ?angiography, vascular ultrasound, venous line / sheath insert and vascular ?closure device. ? Vahe Marvin M.D. ? Electronically Signed by: Vahe Marvin M.D. ? Report Finalized: 07/29/2024 ??13:55 ? Report Last Ammended: 07/30/2024 ??10:15 ? Procedure Note Vahe Marvin MD - 07/30/2024 [facility] Cardiac Catheterization/Intervention Report Patient Name: Korey Montoya Procedure Date: 07/29/2024 A #: [id number] Primary Physician: Vahe Marvin Case #: [id number] File Name: [id number] Catheterization Order Number: [id number] [facility] FinalReport [place], [place] Patient Name: Korey Montoya ID#:[id number] :[id number] Procedure Date: July 29, 2024 Case [...] diagnostic procedure was Emergent. Theindication for the phlebotomist lab assistant visit is ACS less than or equal [...] 3.5 guiding catheter and a 3.[address] [facility] [address] 20 Mhzusing Manual pullback. Imaging was [...] priority for the procedure was Emergent.The [facility] indication for the procedure was [...] The lesion was predilated with a 2.00mm [id number] MM balloon with a maximum inflation pressure of 12atmospheres. A premounted 3.00 x 22 mm [place] (LOW) wasdeployed with a maximum inflation pressure [...] A premounted 3.00 x 08 mm [place](LOW) was deployed with a maximum inflation pressure [...] dose administered prior to arrival in the phlebotomist lab assistant. Recommended anti-platelet/anti-thrombotic regimen: Start aspirin 81 mg daily now and continue for 12 months then stop. Start clopidogrel 75 mg daily now and continue for indefinitely. These recommendations are made at the time of the intervention.Patient and provider preferences or a changing clinical situation mayrequire modification of this regimen. Consult [facility] Interventional Cardiologyfor questions. The 1 year bleeding [...] wereable to start weaning his inotropes/vasopressors. A [place] Colette catheterwas placed demonstrating improvement in his [...] ventricular assist device insertion, right heart catheterization, [place] (flow directed cath) insertion, access site angiography, vascular ultrasound, venous line / sheath insert andvascular closure device. Vahe Marvin M.D. Electronically Signed by: Vahe Marvin M.D. Report Finalized: 07/29/2024 13:55 Report Last Ammended: 07/30/2024 10:15 Vahe Marvin MD CARDIAC CATH ORDERAB LES * (ABNORMAL) BLOOD GAS, POC (07/29/2024 12:46 PM EST) Sodium, POC 139 135 - 145 mmol/L 07/30/2024 7:30 AM EST [facility] Potassium, POC 3.4(L) [...] 13.7 - 16.5 g/dL 07/30/2024 7:30 AM [facility] Comment:The calculation of h emoglobin from hematocrit assumes a normal MCHC. Bicarbonate, POC 19.8(L) 20.0 - 26.0 mmol/L 07/30/2024 7:30 AM [facility] Carbon Dioxide, POC 21(L) 22 - 31 mmol/L 07/30/2024 7:30 AM [facility] Blood VENOUS BLOOD SPECIMEN / Unknown 07/29/2024 12:46 PM EST 07/30/2024 7:30 AM EST Vahe Marvin MD POINT OF CARE TEST O RDERABLES [facility] [place] [address] * (ABNORMAL) BLOOD GAS, POC (07/29/2024 12:12 PM EST) Sodium, POC 135 135 - 145 mmol/L 07/30/2024 7:30 AM [facility] Potassium, POC 3.8 3.5 - 5.0 mmol/L 07/30/2024 7:30 AM [facility] pH, POC 7.27(LLL) 7.35 - 7.45 07/30/2024 7:30 AM [facility] Ionized Calcium, POC 1.14(L) 1.15 - 1.33 mmol/L 07/30/2024 7:30 AM [facility] pCO2, POC 43 35 - 45 mmHg 07/30/2024 7:30 AM [facility] pO2, POC 131(H) 85 - 104 mmHg 07/30/2024 7:30 AM [facility] Base Excess, POC -7.0(L) -3.0 - 3.0 mmol/L 07/30/2024 7:30 AM [facility] Hematocrit, POC 36.0(L) 40.5 - 48.5 %PCV 07/30/2024 7:30 AM [facility] Hemoglobin, POC 12.2(L) 13.7 - 16.5 g/dL 07/30/2024 7:30 AM [facility] Comment:The calculation of h emoglobin from hematocrit assumes a normal MCHC. Bicarbonate, POC 19.7(L) 20.0 - 26.0 mmol/L 07/30/2024 7:30 AM [facility] Carbon Dioxide, POC 21(L) 22 - 31 mmol/L 07/30/2024 7:30 AM [facility] Blood VENOUS BLOOD SPECIMEN / Unknown 07/29/2024 12:12 PM EST 07/30/2024 7:30 AM EST Vahe Marvin MD POINT OF CARE TEST O RDERABLES [facility] [place] [address] documented in this encounter Visit Diagnoses Not [...] Routine documented in this encounter Care Teams Granite Cutter Relationship Specialty Start Date End Date lAexia Mtz, DIGITAL MARKETING APPRENTICE [address] [place] [address] PCP - General Family Medicine 07/30/24 documented as of this encounter
--- OUTSIDE RECORDS SUMMARY | 2024-08-31 10:10 | XMS_ITS | Encounter Summary ---
Author Organization [facility] [place] [address] Care Team Providers Care Bun Panner Name Role Phone Yoel Artis APRN Primary Care Provider [phone] Reason for Referral * Consultation (Routine) - Closed Specialty Diagnoses / Procedures Referred By Theodore muro Referred To Contact Gastroenterology Diagnoses Anal spasm anal spasm Yoel Artis APRN [address] [place] [address] [facility] [address] [place] [address] Referral ID Status Reason Start Date Expiration Date V isits Requested Visits Authorized [id number] Closed Consult, Test & Treat PCP Updated and/or Approved 05/26/2023 05/25/2024 6 6 Encounter Details Date Type Department Care Team (Late st Contact Info) Description 05/26/2023 Transcribe Orders eDH Incoming Referrals [phone] Yoel Artis APRN [address] [place] [address] Anal spasm Social History Tobacco [...] AM EST Office Visit Cardiology at [address] [address] Mushtaq Murphy APRN Scheduled Referrals Name Type Priority Associated Diagnoses Order Schedule Referral to Gastroenterology Outpatient Referral Routine Anal spasm Ordered: 05/26/2023 documented as of this encounter Visit Diagnoses Diagnosis Anal spasm documented in this encounter Care Teams Bun Panner Relationship Specialty Start Date End Date Yoel Artis APRN [address] [place] [address] PCP - General Internal Medicine 11/18/22 07/29/24 documented as of this encounter
--- OUTSIDE RECORDS SUMMARY | 2024-08-31 10:10 | XMS_ITS | Encounter Summary ---
Author Organization [facility] Address [facility] [place] [address] Care Team Providers Care Table Top Tile Setter Name Role Phone Yoel Artis FREDRICK Primary Care Provider [phone] Encounter Details Date Type Department Care Team (Late st Contact Info) Description 07/29/2024 [place] [phone] Ivan Hernandez MD [facility] [place] [address] Social History Tobacco Use Types Packs/Day Years Used Date Smoking Tobacco: Former Cigarettes Smokeless Tobacco: Never Alcohol Use Standard Drinks/Week Comments Not Currently 0 (1 standard drink = 0.6 oz pur e alcohol) [facility] Utilities Answer Date Recorded In the past 12 months has e Powered by [employer], gas, oil, or water [employer] threatened to shut off services in your [...] time in the past 12 m [facility], were you homeless or living in [...] Hospital If Hospital to which patient presented= [facility]: ED Walk In Medical History (prior to [...] Unfractionated Heparin Plan STEMI Alert called: Yes Telecom Network Manager Activated by: Relay Worker Initial Disposition: Admit Telecom Network Manager documented in this encounter Plan of Treatment Upcoming Encounters Date Type Department Care Team (Late st Contact Info) Description 10/01/2024 10:00 AM EST Office Visit Cardiology at [address] [address] Mushtaq Murphy APRN documented as of this encounter Visit Diagnoses Not on filedocumented in this encounter Care Teams Table Top Tile Setter Relationship Specialty Start Date End Date Yoel Artis APRN [address] [place] [address] PCP - General Internal Medicine 11/18/22 07/29/24 documented as of this encounter
--- OUTSIDE RECORDS SUMMARY | 2024-08-31 10:10 | XMS_ITS | Encounter Summary ---
[place] [address] Care Team Providers Care Regional Sales Associate Name Role Phone Yoel Artis FREDRICK Primary Care Provider [phone] Encounter Details Date Type Department Care Team (Late st Contact Info) Description 07/28/2024 Interpretation Only [address] [address] Quinten Coffey MD [address] [place] [address] Social History Tobacco Use Types Packs/Day Years [...] AM EST Office Visit Cardiology at [address] [address] Mushtaq Murphy APRN documented as of this encounter Procedures Procedure Name Priority Date/Time Associated Diagnosis Comments XR CHEST ONE VIEW STAT 07/28/2024 10: 22 AM EST documented in this encounter Results * XR Chest One View (07/28/2024 10:22 AM EST) PT CLASS E RAD ADMITDTTM [id number] RAD PT RAD INFO [id number]^Alexx ^Quinten RAD EXAM DESC XCXR1^XR Chest 1 [...] questions please contact the health child care development specialist that requested your imaging first. ? Electronically signed by: Darvin Noyola, [facility] ([phone]), at 07/28/2024 11:18 AM Narrative 07/28/2024 11:18 [...] have questions please contactthe health child care development specialist that requested your imaging first. Quinten Coffey MD IMG DX ORDERABLES documented in this encounter Visit Diagnoses Not on filedocumented in this encounter Care Teams Regional Sales Associate Relationship Specialty Start Date End Date Yoel Artis APRN [address] [place] [address] PCP - General Internal Medicine 11/18/22 07/29/24 documented as of this encounter
--- OUTSIDE RECORDS SUMMARY | 2024-08-31 10:10 | XMS_ITS | Encounter Summary ---
Author Organization [place] [address] Care Team Providers Care Manager Marketing Name Role Phone Anibal Mtz MD Primary Care Provider [phone] Encounter Details Date Type Department Care Team (Late st Contact Info) Description 01/18/2019 3:00 PM EDT Interpretation Only Cardiology at [address] [address] Alberto Powell Jr., MD Dizziness Social History Tobacco Use Types Packs/Day [...] AM EST Office Visit Cardiology at [address] [address] Mushtaq Murphy APRN documented as of this [...] giddiness documented in this encounter Care Teams Manager Marketing Relationship Specialty Start Date End Date Anibal Mtz MD [address] [place] [address] PCP - General Family Medicine 01/17/19 11/17/22 documented as of this encounter
--- OUTSIDE RECORDS SUMMARY | 2024-08-31 10:10 | XMS_ITS | Encounter Summary ---
Author Organization [facility] Address [facility] [place] [address] Care Team Providers Care Crack Off Person Name Role Phone Yoel Artis APRN Primary Care Provider [phone] Encounter Details Date Type Department Care Team (Latest Contact Info) Description 11/30/2023 8:00 AM EDT TH Visit (TeleHealth) [place] [address] Yoel Dangelo APRN [facility] [place] [address] Proctalgia fugax; Constipation, unspecified constipation type Social [...] encounter Patient Instructions * Patient Instructions* Yoel Dangelo APRN - 11/30/2023 8:00 AM EDT [...] We will refer the patient back to Yoel Artis APRN for continued local care management, [...] Handout for Patients and Primary Care Providers [facility] Gastrointestinal Motility, Esophageal, and Swallowing Disorders Center What are functional bowel disorders? These are the most common type of gastrointestinal disorders in the [facility] The most common functional [...] what is the impact? 15-20% of general [place] population has IBS or FD or both 2nd most common cause for lost work days (after common cold) in [place] Estimated $30 billion dollar cost to [place] economy per year These disorders can have [...] with immediate onset of symptoms after infection); termite treater symptoms are expected in most patients however [...] to you primary care provider and/or local training and development assistant and share this document. Treatment of functional [...] - this approach benefits most patients OTC (lddz-mdw-mwgzzpo) medications can be used for ongoing bothersome symptoms as listed below Your provider (PCP or local Gastroenterology provider or [facility] Gastroenterology provider) may decide to [...] All-Bran psyllium buds, Metamucil, Konsyl, bulk psyllium ([employer] and [employer] stores) Specifically we recommend starting Metamucil or [...] but convincing medical evidence is still lacking Fern-uvb-rvezuax supplements including probiotics are not typically evaluated [...] to decrease antibiotic-associated diarrhea and antibiotic-related infections Kvcg-izb-Icntbej Medications for Functional Gut Disorders Based on [...] a stool softener that is safe for fpc usage (no risk of dependency) andthe dosage [...] (GERD) Often a combination of anti-nausea medications (btdb-dtr-fxqfyni or prescription) works better thanhigh doses of [...] for misuse/misinterpretation of this information Patient Resources [place] [employer] https://www.gastro.org/practice-guidance/px-jwjijon-gwhchp/ topic/illzppllp-ejndb-weyauufo-ibs Badgut.org https://badgut.org/information-centre/i-o-gilipenps-topics/ibs/ AboutIBS.org https://www.aboutibs.org/ Uptodate.com https://www.uptodate.com/contents/gevhmqsov-eoyre-azsakrpw-dgoccn-fqr-coouqq documented in this encounter Progress Notes * Yoel Dangelo APRN - 11/30/2023 8:00 AM EDT Images from the original note were not included. [facility] TELEMEDICINE PROGRAM Chief Complaint: Korey Montoya is a 73 y.o. patient of Yoel Artis APRN here for follow-up of proctalgia [...] Take by mouth. nitroGLYcerin (NITROLINGUAL) 400 mcg/spray [place], Non-Aerosol 1 spray to anus for proctalgia fugax as needed, not to exceed once daily 12 g 0 No facility-administered medications prior to visit. Allergies: has No Known Allergies. Past Medical History: has a past medical history of ADHD, HLD (hyperlipidemia), HTN (hypertension),and Tremor. Past Surgical History: has a past surgical history that includes Hand surgery and Colonoscopy, Antonieta Pfeiffer ([id number]) (N/A, 08/30/2023). Family History: family history is [...] We will refer the patient back to Yoel Artis APRN for continued local care management, based on the care plan provided above. If the problem returns or worsens in the future despite following all of these recommendations, please submit a new consult to our center for re-evaluation. The patient was located in [place] at the time of their visit. Yoel Dangelo APRN [facility] [place] [address] documented in this encounter Miscellaneous Notes * Addendum Note - Yoel Dangelo APRN - 11/30/2023 8:00 AM EDTAddended by: YOEL DANGELO on: 11/30/2023 08:46 AM Modules accepted: Level of Service documented in this encounter Plan of Treatment Upcoming Encounters Date Type Department Care Team (Late st Contact Info) Description 10/01/2024 10:00 AM EST Office Visit Cardiology at [address] [address] Mushtaq Murphy APRN documented as of this encounter Visit Diagnoses Diagnosis Proctalgia fugax Anal spasm Constipation, unspecified constipation type documented in this encounter Care Teams Crack Off Person Relationship Specialty Start Date End Date Yoel Artis APRN [address] [place] [address] PCP - General Internal Medicine 11/18/22 07/29/24 documented as of this encounter
--- OUTSIDE RECORDS SUMMARY | 2024-08-31 10:10 | XMS_ITS | Encounter Summary ---
Author Organization [facility] [place] [address] Care Team Providers Care Driver Examiner Name Role Phone Yoel Artis APRN Primary Care Provider Reason for Referral * Consultation (Routine) - Closed Specialty Diagnoses / Procedures Referred By Theodore muro Referred To Contact Gastroenterology Diagnoses Proctalgia fugax Fecal smearing Constipation, unspecified constipation type group Yoel Dangelo APRN [facility] [place] [address] Paulette Glynn, PhD [facility] [place] [address] Referral ID Status Reason Start Date Expiration Date V isits Requested Visits Authorized [id number] Closed Consult, Test & Treat 06/01/2023 05/31/2024 1 1 Reason for Visit * Consultation (Routine) - Closed Specialty Diagnoses / Procedures Referred By Theodore muro Referred To Contact Gastroenterology Diagnoses Anal spasm motility- anal spasms Yoel Artis APRN [address] [place] [address] [facility] [address] [place] [address] Referral ID Status Reason Start Date Expiration Date V isits Requested Visits Authorized [id number] Closed Consult, Test & Treat PCP Updated and/or Approved 11/18/2022 11/18/2023 6 6 Encounter Details Date Type Department Care Team (Latest Contact Info) Description 06/01/2023 8:00 AM EDT TH Visit (TeleHealth) [place] [address] Yoel Dangelo, DISABILITY ATTORNEY [facility] [place] [address] Proctalgia fugax; Fecal smearing; Constipation, unspecified constipation [...] hear from us within 1 week: Clinic [phone] Motility Lab scheduling [phone] Endoscopy scheduling- [phone] Diagnostics: -Colonoscopy for rectal pain -Anorectal manometry [...] connection and our services, please visit the [facility] website at: [email or web address] Our hope is that through these classes, [...] the [facility] billing office ([email or web address]). Your insurance company may request a CPT code if you ask about coverage. [place] [address]. If you're interested in attending any of these classes or workshops, please reach out to our scheduling team via [facility] or phone ([phone]). You should start a fiber supplement if [...] Handout for Patients and Primary Care Providers [facility] Gastrointestinal Motility, Esophageal, and Swallowing Disorders Center What are functional bowel disorders? These are the most common type of gastrointestinal disorders in the [facility] The most common functional bowel disorder in the [facility] is irritable bowel syndrome (IBS) Irritable bowel [...] what is the impact? 15-20% of general [place] population has IBS or FD or both 2nd most common cause for lost work days (after common cold) in [place] Estimated $30 billion dollar cost to [place] economy per year These disorders can have [...] with immediate onset of symptoms after infection); half-way symptoms are expected in most patients however [...] to you primary care provider and/or local distribution center supervisor and share this document. Treatment of functional [...] - this approach benefits most patients OTC (zyoq-wcp-fzgaixa) medications can be used for ongoing bothersome symptoms as listed below Your provider (PCP or local Gastroenterology provider or [facility] Gastroenterology provider) may decide to use [...] All-Bran psyllium buds, Metamucil, Konsyl, bulk psyllium ([employer] stores and [employer] stores) Specifically we recommend starting Metamucil or [...] but convincing medical evidence is still lacking Jllt-nta-ntijijl supplements including probiotics are not typically evaluated [...] to decrease antibiotic-associated diarrhea and antibiotic-related infections Llnp-ywl-Bdcbpoq Medications for Functional Gut Disorders Based on [...] a stool softener that is safe for intermediate designer usage (no risk of dependency) andthe dosage [...] (GERD) Often a combination of anti-nausea medications (dzbp-dql-osqeylr or prescription) works better thanhigh doses of [...] for misuse/misinterpretation of this information Patient Resources [place] [employer] https://www.gastro.org/practice-guidance/op-rqghxen-lcxfkw/ topic/cwldiuocs-ihdbl-dlgysnnj-ibs Badgut.org https://badgut.org/information-centre/n-r-ypcftyees-topics/ibs/ AboutIBS.org https://www.aboutibs.org/ Uptodate.com https://www.uptodate.com/contents/zdjmwpjhk-uienm-fatcrygh-ysqzmo-jqo-uxhipa documented in this encounter Progress Notes * [...] Denies weight loss Last colo 2017 at [facility] with no polyps. Current Regimen: Metamucil daily [...] office visit: 7 minutes Yoel Dangelo APRN [facility] [place] [address] documented in this encounter Plan of Treatment Upcoming Encounters Date Type Department Care Team (Late st Contact Info) Description 10/01/2024 10:00 AM EST Office Visit Cardiology at [address] [place] [address] Mushtaq Murphy APRN Scheduled Orders Name Type [...] type documented in this encounter Care Teams Driver Examiner Relationship Specialty Start Date End Date Yoel Artis APRN [address] [place] [address] PCP - General Internal Medicine 11/18/22 07/29/24 documented as of this encounter
--- OUTSIDE RECORDS SUMMARY | 2024-08-31 10:10 | XMS_ITS | Encounter Summary ---
Author Organization Formerly [facility], [facility] [place] [address] Care Team Providers Care Home Organizer Name Role Phone Yoel Artis APRN Primary Care Provider [phone] Encounter Details Date Type Department Care Team (Late st Contact Info) Description 12/23/2022 8:20 AM EDT - 12/23/2022 11:59 PM EDT Hospital Encounter [facility] [address] [place] [address] Yoel Artis APRN [address] [place] [address] Discharge Disposition: Home Social History Tobacco Use [...] AM EST Office Visit Cardiology at [address] [phone] Mushtaq Murphy APRN documented as of this encounter Procedures Procedure Name Priority Date/Time Associated Diagnosis Comments PSA SCREEN Routine 12/23/2022 8:43 AM EDT documented in this encounter Results * (ABNORMAL) PSA Screen (12/23/2022 8:43 AM EDT) PSA Screen 4.37(H) 0.00 - 4.00 ng/mL [facility] Comment: PLEASE NOTE: The above reference [...] Artis APRN CHEMISTRY ORDERABLES Performing Organization Address City/State/[facility] Co de Phone Number [facility] [place] [place] [address] documented in this encounter Visit Diagnoses Not on filedocumented in this encounter Care Teams Home Organizer Relationship Specialty Start Date End Date Yoel Artis APRN [address] [place] [address] PCP - General Internal Medicine 11/18/22 07/29/24 documented as of this encounter
--- OUTSIDE RECORDS SUMMARY | 2024-08-31 10:10 | XMS_ITS | Encounter Summary ---
[place] [address] Care Team Providers Care Show Host Name Role Phone Yoel Artis Ute ALCALA Primary Care Provider [phone] Reason for Visit * Auth/Cert (Routine) Specialty Diagnoses / Procedures Referred By Theodore t Referred To Contact Diagnoses STEMI (ST elevation myocardial infarction) STEMI Procedures ER IPI Vahe Marvin MD [facility] [place] [address] [facility] Referral ID Status Reason Start Date Expiration Date Visits Re quested Visits Authorized [id number] 1 1 Encounter Details Date Type Department Care Team (Late st Contact Info) Description 07/29/2024 12:00 PM EST - 07/29/2024 12:54 PM EST Surgery Cylinder Inspector [place] [address] Vahe Marvin MD [facility] [place] [address] CARDIAC CATHETERIZATION Social History Tobacco Use Types Packs/Day Years Used Date Smoking Tobacco: Former Cigarettes Smokeless Tobacco: Never Alcohol Use Standard Drinks/Week Comments Not Currently 0 (1 standard drink = 0.6 oz pur e alcohol) [facility] Utilities Answer Date Recorded In the past 12 months has [employer] electric, gas, oil, or water company threatened [...] in the past 12 m [facility], were you homeless or living [...] Korey Montoya Patient Age: 74 y.o. Language: Central African Race: White Ethnicity: Not nor Admit date: [...] up. Inpatient Provider Contact Information: ALEX SMALL, BRIDGETET VELAZQUEZ, YRN SILVERIO, AUBREE PARKER, KRYSTAL Zimmer For questions regarding this document or issues relating to this hospitalization on the Medical Service, please contact your inpatient physician through the [facility] Material Handler 1St Shift . Issues afterhours and on weekends will [...] EKG. Patient transferred via air ambulance to [facility] on 07/29 for LHC and LOW to [...] EKG. Was transferred via air ambulance to [facility] for further management and LHC demonstrated 100% occlusion. No significant RCA, LMCA, or LCX disease. LOW placed in LAD with some residual distal disease meriting placement of overlapping distal stent. TTE showed apical akinesis and inferior hypokinesis with EF 20%. RHC showed elevated filling pressures. Impella placed and P-level 6 at time of transfer to [facility]. CI initially 1.97, improved to 2.2 [...] the next year. Access was via right CONTINUOUS CHURN BUTTERMAKER and this sitewas clean, dry and intact [...] for Chest pain. Replaces: nitroGLYcerin 400 mcg/spray [place], Non-Aerosol 0.4 mg Quantity: 90 tablet Refills: [...] Refills: 0 STOPPED Medications nitroGLYcerin 400 mcg/spray [place], Non-Aerosol Commonly known as: NITROLINGUAL Replaced by: [...] of one year. After this time, your apparel cutter will determine if you need to continue [...] away. Stay on the phone. The emergency pocket and pulley machine operator will tell you what to [...] appointments: During 8am-5pm Tuesday through Tuesday call [phone] to speak with a nurse in the cardiology clinic All other times call [phone] and ask to speak to the director of cardiology service line information systems director. Follow up Appointments: PCP Alexia Mtz, CYLINDER INSPECTOR AND TESTER [phone]. Please call to establish a follow up appointment within 1-2 weeks of discharge. Cardiology. Referral to heart failure has been sent. General Instructions None Future Appointments and Orders Future Orders Complete By Expires Referral to Cardiac Rehab [[id number] Custom] As directed Process Instructions: If no progress note charted, please enter Clinical details in comments. Scheduling Instructions: Questions: My question or request is: STEMI, PCI- cardiac rehab at [facility] Referral to Cardiology [REF12 Custom] [...] of one year. After this time, your apparel cutter will determine if you need to continue [...] away. Stay on the phone. The emergency pocket and pulley machine operator will tell you what to [...] appointments: During 8am-5pm Tuesday through Tuesday call [phone] to speak with a nurse in the cardiology clinic All other times call [phone] and ask to speak to the director of cardiology service line information systems director. Follow up Appointments: PCP Alexia Mtz, CYLINDER INSPECTOR AND TESTER [phone]. Please call to establish a follow up [...] EKG. Patient transferred via air ambulance to [facility] on 07/29 for LHC and LOW to LAD for 100% occlusion Social History: Pt lives with his in a 1 level home with 2 NAOMI. 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 He [...] Total time: 35 (tef) minutes Time IN/OUT: 2222-5723 ZAIDA DUBOSE PT Pager: [phone] Physical Therapy Inpatient Rehabilitation Department * Yrn Velazquez MD - 08/03/2024 10:38 AM EST CV HOSPITALIST 2 - [facility] DAILY PROGRESS NOTE Page [phone] to reach a provider 04/04 Admit Date: [...] Compared to the overnight study by the information systems director fellow the impella position is stable. 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 [facility] 07/29/24 Conclusions: * One vessel coronary artery disease (LAD) * Mild pulmonary hypertension * Elevated pulmonary capillary wedge pressure * Successful stent insertion of the proximal LAD lesion * See Dual Antiplatelet (DAPT) Recommendations above * Successful impella placement for cardiogenic shock. Telemetry: I have personally reviewed and interpreted the telemetry from the last 24 hours. [facility] ASSESSMENT: Korey Montoya is a 74 y.o. male w/ PMH of hypertension, HLD, and BPH who presents for chief concern of chest pain after being found to have ST elevations on EKG. Patient transferred via air ambulance to [facility] on 07/29 for LHC and LOW to [...] be determined OT: PCP Alexia Mtz, FREDRICK [phone] * Zaida Dubose, PT - 08/02/2024 2:08 PM EST Physical Therapy Evaluation Patient profile: Korey Montoya is a 74 y.o. male w/ PMH of hypertension, HLD, and BPH who presents for chief concern of chest pain after being found to have ST elevations on EKG. Patient transferred via air ambulance to [facility] on 07/29 for LHC and LOW to LAD for 100% occlusion Social History: Pt lives with his in a 1 level home with 2 NAOMI. 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 He drives. home to assist as needed. Precautions/Special Considerations: At risk to fall; recent STEMI Mobility and Positioning Recommendations: OOB to chair with 1 cg assist; rolling walker Pt to ambulate 3-4x/daily with 1 assist; walker or trial without device Please encourage up to chair for meal times as able. Pt seen for evaluation today in the [facility]. Pt in the bed at start [...] Total time: 37 (eval) minutes Time IN/OUT: 2820-7347 ZAIDA DUBOSE PT Pager: [phone] Physical Therapy Inpatient Rehabilitation Department * Gagan [...] EKG. Patient transferred via air ambulance to [facility] on 07/29 for LHC and LOW to LAD for 100% occlusion. TTE showed apical akinesis and inferior hypokinesis with EF 20%. RHC showed elevated filling pressures. Impella placed and P-level 6 at time of transfer to [facility]. CI initially 1.97, improved to 2.2 [...] PCP: Alexia Mtz APRN PCP phone number: [phone] Date of Admission: 07/29/2024 ( Hospital Day 4 days ) Attending:Bridgette Stauffer MD ID: Korey Montoya is a 74 y.o. male w/ PMH of hypertension, HLD, and BPH on Hospital Day4 for chief concern of chest pain after being found to have ST elevations on EKG. Patient transferred via air ambulance to [facility] on 07/29 for LHC and LOW to [...] 07/29/24 1621 PHART 7.48* 7.44 7.38 7.37 QSV0ASA 29* 29* 34* 36 PO2ART 71* 109* 141* 71* PKI0TMI 20.6 19.4* 19.5* 20.4 VBG (Venous Blood Gas) Recent Labs 07/29/24 1401 PHVEN 7.30* PO2VEN 39 TCO5IHE 20.1* Mixed Venous Sat No results for input(s): V5AOFE9 in the last 168 hours. Objective: Vitals [...] 07/29/24 1621 PHART 7.48* 7.44 7.38 7.37 MIX7QDD 29* 29* 34* 36 PO2ART 71* 109* 141* 71* HFN5SRM 20.6 19.4* 19.5* 20.4 VBG (Venous Blood Gas) Recent Labs 07/29/24 1401 PHVEN 7.30* PO2VEN 39 JWX0MGQ 20.1* Mixed Venous Sat No results for input(s): W3GVJI6 in the last 168 hours. Microbiology: Microbiology Results (Last 30 days) Procedure Component Value Units Date/Time Blood culture [[id number]] Collected: 07/29/24 160 Lab Status: Preliminary result Specimen: Blood, Venous Updated: 08/01/24 170 Blood Culture No growth at 72 hours Blood culture [[id number]] Collected: 07/29/241607 Lab Status: Preliminary result Specimen: Blood, Venous Updated: 08/01/24 170 Blood Culture No growth at 72 hours Imaging: Results for orders placed or performed during the hospital encounter of 07/29/24 XR Chest One View (Exam End: 07/29/2024 2:30 PM) Result Value WORKSTATION ID [id number] Impression 1. No pulmonary edema. 2. No pleural effusion. 3. No pneumothorax. Thank you for letting us participate in the care of this patient. If you are a health care provider and have any questions regarding this report, please contact the number below. For patients who have questions please contact the health rn acute care that requested your imaging first. Electronically signed by: Chris Candelaria MD, [facility] ([phone]), at 07/29/2024 3:21 PM TTE ( 07/30/24) [...] Compared to the overnight study by the information systems director fellow the impella position is stable. The [...] EKG. Patient transferred via air ambulance to [facility] on 07/29 for LHC and LOW to [...] today). Transfer to floor. Krystal Parker MD, [facility], [facility] Staff Teacher Preschool property master * Gagan Catherine MD - 08/01/2024 11:12 [...] EKG. Patient transferred via air ambulance to [facility] on 07/29 for LHC and LOW to LAD for 100% occlusion. TTE showed apical akinesis and inferior hypokinesis with EF 20%. RHC showed elevated filling pressures. Impella placed and P-level 6 at time of transfer to [facility]. CI initially 1.97, improved to 2.2 After impella. Received about 3 L of fluid during procedural course. Patient initially required norepinephrine 30, epinephrine 10, and vasopressin 0.04 for hemodynamic support, which was weaned upon arrival to [facility] to norepinephrine 20and levo 0.04 N [...] PCP: Alexia Mtz APRN PCP phone number: [phone] Date of Admission: 07/29/2024 ( Hospital Day 3 days ) Attending:Krystal Parker MD ID: Korey Montoya is a 74 y.o. male w/ PMH of hypertension, HLD, and BPH on Hospital Day3 for chief concern of chest pain after being found to have ST elevations on EKG. Patient transferred via air ambulance to [facility] on 07/29 for LHC and LOW to [...] 07/29/24 1621 PHART 7.48* 7.44 7.38 7.37 JQL5ATP 29* 29* 34* 36 PO2ART 71* 109* 141* 71* RSU0MPY 20.6 19.4* 19.5* 20.4 VBG (Venous Blood Gas) Recent Labs 07/29/24 1401 PHVEN 7.30* PO2VEN 39 SXB5SCW 20.1* Mixed Venous Sat No results for input(s): I5NPUR9 in the last 168 hours. PA Catheter [...] 07/29/24 1621 PHART 7.48* 7.44 7.38 7.37 NEG8CDF 29* 29* 34* 36 PO2ART 71* 109* 141* 71* ANO3ZAR 20.6 19.4* 19.5* 20.4 VBG (Venous Blood Gas) Recent Labs 07/29/24 1401 PHVEN 7.30* PO2VEN 39 WVB8OAL 20.1* Mixed Venous Sat No results for input(s): O1AEGN3 in the last 168 hours. Microbiology: Microbiology Results (Last 30 days) Procedure Component Value Units Date/Time Blood culture [[id number]] Collected: 07/29/241607 Lab Status: Preliminary result Specimen: Blood, Venous Updated: 07/31/241700 Blood Culture No growth at 48 hours Blood culture [[id number]] Collected: 07/29/241607 Lab Status: Preliminary result Specimen: Blood, Venous Updated: 07/31/241700 Blood Culture No growth at 48 hours Imaging: Results for orders placed or performed during the hospital encounter of 07/29/24 XR Chest One View (Exam End: 07/29/2024 2:30 PM) Result Value WORKSTATION ID [id number] Impression 1. No pulmonary edema. 2. No pleural effusion. 3. No pneumothorax. Thank you for letting us participate in the care of this patient. If you are a health care provider and have any questions regarding this report, please contact the number below. For patients who have questions please contact the health rn acute care that requested your imaging first. Electronically signed by: Chris Candelaria MD, [facility] ([phone]), at 07/29/2024 3:21 PM TTE ( 07/30/24) [...] Compared to the overnight study by the information systems director fellow the impella position is stable. The [...] EKG. Patient transferred via air ambulance to [facility] on 07/29 for LHC and LOW to [...] with him; questions answered. Krystal Parker MD, [facility], [facility] Staff Teacher Preschool property master * Krystal Parker MD - 07/31/2024 1:06 [...] EKG. Patient transferred via air ambulance to [facility] on 07/29 for LHC and LOW to LAD for 100% occlusion. TTE showed apical akinesis and inferior hypokinesis with EF 20%. RHC showed elevated filling pressures. Impella placed and P-level 6 at time of transfer to [facility]. CI initially 1.97, improved to 2.2 After impella. Received about 3 L of fluid during procedural course. Patient initially required norepinephrine 30, epinephrine 10, and vasopressin 0.04 for hemodynamic support, which was weaned upon arrival to [facility] to norepinephrine 20and levo 0.04 N [...] info: Name: Korey Montoya : 1950 PCP: Alexai Mtz APRN PCP phone number: [phone] Date of Admission: 07/29/2024 ( Hospital Day 2 days ) Attending:Krystal Parker MD ID: Korey Montoya is a 74 y.o. male w/ PMH of hypertension, HLD, and BPH on Hospital Day2 for chief concern of chest pain after being found to have ST elevations on EKG. Patient transferred via air ambulance to [facility] on 07/29 for LHC and LOW to [...] 0057 07/29/24 1621 PHART 7.44 7.38 7.37 WBG2FIP 29* 34* 36 PO2ART 109* 141* 71* KVM6XJN 19.4* 19.5* 20.4 VBG (Venous Blood Gas) Recent Labs 07/29/24 1401 PHVEN 7.30* PO2VEN 39 AHK9NXV 20.1* Mixed Venous Sat No results for input(s): B5WDNO4 in the last 168 hours. PA Catheter [...] 0057 07/29/24 1621 PHART 7.44 7.38 7.37 UCS5ABW 29* 34* 36 PO2ART 109* 141* 71* XQB5RJR 19.4* 19.5* 20.4 VBG (Venous Blood Gas) Recent Labs 07/29/24 1401 PHVEN 7.30* PO2VEN 39 ACZ4URJ 20.1* Mixed Venous Sat No results for input(s): O5FXTO5 in the last 168 hours. Microbiology: Microbiology Results (Last 30 days) Procedure Component Value Units Date/Time Blood culture [[id number]] Collected: 07/29/241607 Lab Status: Preliminary result Specimen: Blood, Venous Updated: 07/30/241700 Blood Culture No Growth at 18-24 hrs. Blood culture [[id number]] Collected: 07/29/241607 Lab Status: Preliminary result Specimen: Blood, Venous Updated: 07/30/241700 Blood Culture No Growth at 18-24 hrs. Imaging: Results for orders placed or performed during the hospital encounter of 07/29/24 XR Chest One View (Exam End: 07/29/2024 2:30 PM) Result Value WORKSTATION ID [id number] Impression 1. No pulmonary edema. 2. No pleural effusion. 3. No pneumothorax. Thank you for letting us participate in the care of this patient. If you are a health care provider and have any questions regarding this report, please contact the number below. For patients who have questions please contact the health rn acute care that requested your imaging first. Electronically signed by: Chris Candelaria MD, [facility] ([phone]), at 07/29/2024 3:21 PM TTE ( 07/30/24) [...] Compared to the overnight study by the information systems director fellow the impella position is stable. The [...] EKG. Patient transferred via air ambulance to [facility] on 07/29 for LHC and LOW to [...] work to optimize volume status while continuing iicftza-fvqkmw-tnurchinqj therapies at this time. Obtain comprehensive TTE. [...] supporting interventions. KRYSTAL PARKER MD 07/30/2024 * Gagna Catherine MD - 07/30/2024 7:51 AM EST [...] EKG. Patient transferred via air ambulance to [facility] on 07/29 for LHC and LOW to LAD for 100% occlusion. TTE showed apical akinesis and inferior hypokinesis with EF 20%. RHC showed elevated filling pressures. Impella placed and P-level 6 at time of transfer to [facility]. CI initially 1.97, improved to 2.2 After impella. Received about 3 L of fluid during procedural course. Patient initially required norepinephrine 30, epinephrine 10, and vasopressin 0.04 for hemodynamic support, which was weaned upon arrival to [facility] to norepinephrine 20and levo 0.04 N [...] unit. Gagan Catherine MD 07/30/2024 * Susannah Orneals MD - 07/30/2024 6:22 AM EST Images from the original note were not included. Cardiology ICU Progress Note Patient info: Name: Korey Montoya : 1950 PCP: Yoel Artis APRN PCP phone number: [phone] Date of Admission: 07/29/2024 ( Hospital Day 1 day ) Attending:Aubree Silverio MD ID: Korey Montoya is a 74 y.o. male w/ PMH of hypertension, HLD, and BPH on Hospital Day1 for chief concern of chest pain after being found to have ST elevations on EKG. Patient transferred via air ambulance to [facility] on 07/29 for LHC and LOW to [...] 0057 07/29/24 1621 PHART 7.44 7.38 7.37 RXR1LJF 29* 34* 36 PO2ART 109* 141* 71* NSQ3XTW 19.4* 19.5* 20.4 VBG (Venous Blood Gas) Recent Labs 07/29/24 1401 PHVEN 7.30* PO2VEN 39 YLE0AOS 20.1* Lactate ( Last 12 hours) 1.3 >> 1.2 Mixed Venous Sat No results for input(s): U4YFDH5 in the last 168 hours. PA Catheter [...] 0057 07/29/24 1621 PHART 7.44 7.38 7.37 KMR8YDQ 29* 34* 36 PO2ART 109* 141* 71* NYR1MBV 19.4* 19.5* 20.4 VBG (Venous Blood Gas) Recent Labs 07/29/24 1401 PHVEN 7.30* PO2VEN 39 TBW6EVF 20.1* Mixed Venous Sat No results for input(s): K8VHEH0 in the last 168 hours. Microbiology: Microbiology Results (Last 30 days) Procedure Component Value Units Date/Time Blood culture [[id number]] Collected: 07/29/24 1608 Lab Status: In process Specimen: Blood, Venous Updated: 07/29/24 1626 Blood culture [[id number]] Collected: 07/29/24 1608 Lab Status: In process Specimen: Blood, Venous Updated: 07/29/24 1615 Imaging: Results for orders placed or performed during the hospital encounter of 07/29/24 XR Chest One View (Exam End: 07/29/2024 2:30 PM) Result Value WORKSTATION ID [id number] Impression 1. No pulmonary edema. 2. No pleural effusion. 3. No pneumothorax. Thank you for letting us participate in the care of this patient. If you are a health care provider and have any questions regarding this report, please contact the number below. For patients who have questions please contact the health rn acute care that requested your imaging first. Medications [...] EKG. Patient transferred via air ambulance to [facility] on 07/29 for LHC and LOW to [...] EKG. Patient transferred via air ambulance to [facility] on 07/29 for LHC and LOW to [...] EKG. Was transferred via air ambulance to [facility] for further management and C demo nstrated 100% occlusion. No significant RCA, LMCA, or LCX disease. LOW placed in LAD with some residual distal disease meriting placement of overlapping distal stent. TTE showed apical akinesis and inferior hypokinesis with EF 20%. RHC showed elevated filling pressures. Impella placed and P-level 6 at time of transfer to [facility]. CI initially 1.97, improved to 2.2 After impella. Received about 3 L of fluid during procedural course. Patient initially required norepinephrine, epinephrine, and vasopressin for hemodynamic support, which was weaned upon arrival to [facility] to norepinephrine 20 and levo 0.04 [...] (WRVU 4.57) performed by Brandan Mcgovern MD [facility] ENDOSCOPY Significant Family History: Family History [...] mouth. Past Week nitroGLYcerin (NITROLINGUAL) 400 mcg/spray [place], Non-Aerosol 1 spray to anus for proctalgia [...] 3.5 guiding catheter and a 3.5 Fr [place] [facility] [place] [address] 20 Mhz using Manual pullback. Imaging [...] priority for the procedure was Emergent. The [facility] indication for the procedure was [...] A premounted 3.00 x 22 mm [place] Dimmit (LOW) was deployed with a maximum inflation [...] atmospheres. A premounted 3.00 x 08 mm [place] Dimmit (LOW) was deployed with a maximum inflation [...] a limited study performed by a fellow information systems director to evaluate for cardiogenic shock with impella [...] Compared to the overnight study by the information systems director fellow the impella position is stable. The [...] EKG. Patient transferred via air ambulance to [facility] on 07/29 for LHC and LOW to [...] PCP: Yoel Artis APRN PCP phone number: [phone] Date of Admission: 07/29/2024 ( Hospital Day 0 days ) Attending:Aubree Silverio MD ID: Korey Montoya is a 74 y.o. male w/ PMH of hypertension, HLD, and BPH who presents for chief concern of chest pain after being found to have ST elevations on EKG. Patient transferred via air ambulance to [facility] on 07/29 for LHC and LOW to LAD for 100% occlusion. HPI: Korey Montoya is a 74 y.o. male w/ PMH of hypertension, HLD, and BPH who presents for chief concern of chest pain after being found to have ST elevations on EKG. Patient transferred via air ambulance to [facility] on 07/29 for LHC and LOW to [...] EKG. Was transferred via air ambulance to [facility] for further management and LHC demonstrated 100% [...] (WRVU 4.57) performed by Brandan Mcgovern MD [facility] ENDOSCOPY Family History Family History Problem [...] Blood Gas) No results for input(s): PHART, KES5JEB, PO2ART, BJC1SEH, LACTATEVEN, JIJ4BTO, PFRATIOART2 in the last 168 hours. VBG (Venous Blood Gas) Recent Labs 07/29/24 1401 PHVEN 7.30* PO2VEN 39 SGF0GVQ 20.1* Mixed Venous Sat No results for input(s): F4SOJB9 in the last 168 hours. PA Catheter [...] Blood Gas) No results for input(s): PHART, PNA4UCT, PO2ART, QHN8PWK, LACTATEVEN, ZRL8GST, PFRATIOART2 in the last 168 hours. VBG (Venous Blood Gas) Recent Labs 07/29/24 1401 PHVEN 7.30* PO2VEN 39 PXX3YGA 20.1* Mixed Venous Sat No results for input(s): L0SMGB6 in the last 168 hours. Microbiology: Microbiology [...] EKG. Patient transferred via air ambulance to [facility] on 07/29 for LHC. Found to have 100% occlusion of LAD for which he underwent LOW to LAD.Otherwise no other significant vessel disease. Fahad is currently hemodynamically tenuous but improving upon admission to [facility], requiring hemodynamic support with norepinephrine and vasopressin at time of admission along with mechanical support with Impella device. Reassuringly, he demonstrates decreasing pressor requirements since admission to [facility], with epinephrine completely weaned. He does [...] Bernardo Amos MD Internal Medicine, PGY-3 Cardiology, [facility] 07/29/24 3:14 PM Cardiology Attending Note [...] MD, FACP, FACC Section of Cardiovascular Medicine [facility] [employer]erbrasswind instrument repairer [employer] [facility] This patient meets or has [...] to the planned procedure. Hand Hygiene: The speaker mounter did perform hand hygiene prior to arterial [...] ease. Good wave form. Ivan Hernandez MD Recep Associated attestation - Rolando Yeh MD - [...] in an outpatient cardiac rehabilitation program at [facility] was discussed. Patient agrees to [...] MEDICARE Payor: AARP MANAGED MEDICARE / Plan: [employer] MANAGED MEDICARE COMPLETE / Product Type: *No [...] Date of Discharge: 08/04/2024 Gaby Wong RN, [phone] * Initial Assessments - Char Meza OT - 08/03/2024 10:00 AM EST Occupational Therapy Evaluation Patient profile: Korey Montoya is a 74 y.o. male admitted on 07/29/2024 w/ PMH of hypertension, HLD, and BPH who presents for chief concern of chest pain after being found to have ST elevations onEKG. Patient [place] via air [facility] [place] [facility] [place] for LHC and LOW to LAD for 100% occlusion. Past Medical History: Diagnosis Date ADHD HLD (hyperlipidemia) HTN (hypertension) Tremor Past Surgical History: Procedure Laterality Date HAND SURGERY PRO COLONOSCOPY, REMV LESN, SNARE N/A 08/30/2023 COLONOSCOPY, POLYPECTOMY, REMOVAL LESION BY SNARE (WRVU 4.57) performed by Brandan Mcgovern MD [facility] ENDOSCOPY Social History: Patient lives with his . Home Setup: 2 NAOMI to a 1 level home. DME: none Baseline ADL/Mobility: Independent with ADLs and IADLs. Enjoys walking. able assist as needed. Precautions/Special Considerations: Full code. Risk for falls. Subjective: I have access to an [employer] gym. (Educated to wait for MD to [...] evaluation only Total Minutes, Occupational Therapy: 14 ([phone] (evaluation)) 2017 OT Evaluation Code Rationale: Diagnosis [...] and measurable assessment of functional outcome. Pager: [phone] Char Meza OT 08/03/2024 Occupational Therapy Rehabilitation [...] (Interventions Implemented as Appropriate) Flowsheets (Taken 08/01/2024 9626) Outcome Summary: A+O, no pain. NSR. MAP [...] Procedure Note: Patient Name: Korey Montoya : [id number] MR#: [id number] Case Date: 07/31/2024 Material Handler 1St Shift: Surgeons and Role: * Maldonado Luis MD - Primary * Quinten Charles PA - Physician Lamp Shades Supervisor Preoperative diagnosis: shock, impella Postoperative diagnosis: * same * Procedure(s) performed: Impella removal form right CONTINUOUS CHURN BUTTERMAKER Access: Right CONTINUOUS CHURN BUTTERMAKER A time-out was conducted prior to the [...] surrogate would be surrogate decision maker per [place] surrogate decision making law. (Only good for 180 days) Any patient receiving care in [place] must abide by [place] law. 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 Health/Prescription Coverage: Primary Insurance: [facility] MANAGED MEDICARE Payor: AARP MANAGED MEDICARE / Plan: [facility] MANAGED MEDICARE COMPLETE / Product Type: *No Product type* / Secondary Insurance: N/A ; Prescription Coverage: Yes Preferred Pharmacy: [address] - [address] [address] [place] Status: Patient is a : No Primary Care Provider confirmed: Alexia Mtz, CYLINDER INSPECTOR AND TESTER [phone] Patient/Caregiver Goals of Treatment: return home Potential [...] 07/29/2024 6:25 PM EST 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 CXR and EKG completed. [...] Procedure Note: Patient Name: Korey Montoya : [id number] MR#: [id number] Case Date: 07/29/2024 Material Handler 1St Shift: Surgeons and Role: * Vahe Marvin MD - Primary * Susannah Watts PA - Physician Lamp Shades Supervisor Preoperative diagnosis: STEMI Postoperative diagnosis: * STEMI, LAD Artery * * Cardiogenic Shock * Procedure(s) performed: [facility] Coronary angiogram Stent insertion coronary IVUS coronary Venous line insert [facility] [place] Colette Catheter Vascular closure device Ventricular assist [...] x 22 mm to 14 deonna JEISON Dimmit with LIZ 3 flow. Residual distal disease at distal stent, overlapping distal stent was inserted with 3.0 x 8 mm JEISON Dimmit. Systolic's in the 80's sustained. Patient re [...] AM EST Office Visit Cardiology at [address] [phone] Mushtaq Murphy, FREDRICK Scheduled Orders Name Type [...] - 9.50 x10(3)/mc L 08/04/2024 6:39 AM [facility] Red Blood Cell 4.28(L) 4.58 - 5.54 x10(6)/mc L 08/04/2024 6:39 AM [facility] Hemoglobin 11.6(L) 13.7 - 16.5 g/dL 08/04/2024 6:39 AM [facility] Hematocrit 34.8(L) 40.5 - 48.5 % 08/04/2024 6:39 AM [facility] Mean Cell Volume 81.3(L) 82.9 - 93.1 fL 08/04/2024 6:39 AM [facility] Mean Cell Hemoglobin 27.1(L) 27.5 - 32.1 pg 08/04/2024 6:39 AM [facility] Mean Cell Hemoglobin Concentration 33.3 32.0 - 35.7 g/dL 08/04/2024 6:39 AM [facility] Platelet 178 145 - 357 x10(3)/mc L 08/04/2024 6:39 AM [facility] Mean Platelet Volume 10.6 7.6 - 12.9 fL 08/04/2024 6:39 AM [facility] RDW Standard Deviation 42.0 36.0 - 45.0 fL 08/04/2024 6:39 AM [facility] RDW coefficient of variation 14.3(H) 11.4 - 13.8 % 08/04/2024 6:39 AM [facility] NRBC% auto 0.0 % 08/04/2024 6:39 AM [facility] NRBC Absolute <0.01 <0.01 x10(3)/mc L 08/04/2024 6:39 AM [facility] Neutrophil % 72.1 % 08/04/2024 6:39 AM [facility] Neutrophil Absolute (ANC) - Automated 5.24 1.70 - 6.10 x10(3)/mc L 08/04/2024 6:39 AM [facility] Lymph % 16.8 % 08/04/2024 6:39 AM [facility] Lymph Absolute 1.22 0.90 - 3.20 x10(3)/mc L 08/04/2024 6:39 AM [facility] Monocyte % 8.5 % 08/04/2024 6:39 AM [facility] Monocyte Absolute 0.62 0.30 - 0.90 x10(3)/mc L 08/04/2024 6:39 AM [facility] Eos % 1.9 % 08/04/2024 6:39 AM [facility] Eos Absolute 0.14 0.00 - 0.40 x10(3)/mc L 08/04/2024 6:39 AM [facility] Basophil % 0.4 % 08/04/2024 6:39 AM [facility] Baso Absolute <0.04 0.00 - 0.10 x10(3)/mc L 08/04/2024 6:39 AM [facility] Immature Gran % 0.3 % 6:39 AM [facility] Immature Gran Absolute <0.04 0.00 - 0.04 x10(3)/mc L 08/04/2024 6:39 AM [facility] Blood VENOUS BLOOD SPECIMEN / Unknown Venipuncture / Unknown 08/04/2024 6:08 AM EST 08/04/2024 6:19 AM EST Bridgette Stauffer MD HEMATOLOGY ORDERABLE S [facility] [place] [address] * Magnesium (08/04/2024 6:08 AM EST) Magnesium 0.85 0.69 - 1.07 mMol/L 08/04/2024 7:07 AM [facility] Blood VENOUS BLOOD SPECIMEN / Unknown Venipuncture / Unknown 08/04/2024 6:08 AM EST 08/04/2024 6:19 AM EST Bridgette Stauffer MD CHEMISTRY ORDERABLES [facility] [place] [address] * Basic Metabolic Panel (08/04/2024 6:08 AM EST) Glucose 93 65 - 199 mg/dL 08/04/2024 7:07 AM [facility] Comment:Glucose Concentratio n >=200 mg/dL plus symptoms is consistent with Diabetes Mellitus. Blood Urea Nitrogen 14 10 - 20 mg/dL 08/04/2024 7:07 AM [facility] Creatinine 1.07 0.80 - 1.50 mg/dL 08/04/2024 7:07 AM [facility] Sodium 138 135 - 145 mMol/L 08/04/2024 7:07 AM [facility] Potassium 4.3 3.5 - 5.0 mMol/L 08/04/2024 7:07 AM [facility] Chloride 107 98 - 107 mMol/L 08/04/2024 7:07 AM [facility] Carbon Dioxide 23 22 - 31 mMol/L 08/04/2024 7:07 AM [facility] Anion Gap 8 5 - 15 mMol/L 08/04/2024 7:07 AM [facility] Calcium 8.5 8.5 - 10.5 mg/dL 08/04/2024 7:07 AM [facility] Est Glomerular Filtration Rate - Male 74 mL/min/1. 73 m?? 08/04/2024 7:07 AM [facility] Comment: This patient's estimated GFR [...] AM EST Bridgette Stauffer MD CHEMISTRY ORDERABLES [facility] [place] [address] * (ABNORMAL) CBC (with Diff) (08/03/2024 5:16 AM EST) White Blood Cell 7.85 4.00 - 9.50 x10(3)/mc L 08/03/2024 5:29 AM [facility] Red Blood Cell 4.43(L) 4.58 - 5.54 x10(6)/mc L 08/03/2024 5:29 AM [facility] Hemoglobin 11.8(L) 13.7 - 16.5 g/dL 08/03/2024 5:29 AM [facility] Hematocrit 35.9(L) 40.5 - 48.5 % 08/03/2024 5:29 AM [facility] Mean Cell Volume 81.0(L) 82.9 - 93.1 fL 08/03/2024 5:29 AM [facility] Mean Cell Hemoglobin 26.6(L) 27.5 - 32.1 pg 08/03/2024 5:29 AM [facility] Mean Cell Hemoglobin Concentration 32.9 32.0 - 35.7 g/dL 08/03/2024 5:29 AM [facility] Platelet 142(L) 145 - 357 x10(3)/mc L 08/03/2024 5:29 AM [facility] Mean Platelet Volume 10.5 7.6 - 12.9 fL 08/03/2024 5:29 AM [facility] RDW Standard Deviation 42.5 36.0 - 45.0 fL 08/03/2024 5:29 AM [facility] RDW coefficient of variation 14.2(H) 11.4 - 13.8 % 08/03/2024 5:29 AM [facility] NRBC% auto 0.0 % 08/03/2024 5:29 AM [facility] NRBC Absolute <0.01 <0.01 x10(3)/mc L 08/03/2024 5:29 AM [facility] Neutrophil % 75.2 % 08/03/2024 5:29 AM [facility] Neutrophil Absolute (ANC) - Automated 5.91 1.70 - 6.10 x10(3)/mc L 08/03/2024 5:29 AM [facility] Lymph % 13.4 % 08/03/2024 5:29 AM [facility] Lymph Absolute 1.05 0.90 - 3.20 x10(3)/mc L 08/03/2024 5:29 AM [facility] Monocyte % 9.0 % 08/03/2024 5:29 AM [facility] Monocyte Absolute 0.71 0.30 - 0.90 x10(3)/mc L 08/03/2024 5:29 AM [facility] Eos % 1.7 % 08/03/2024 5:29 AM [facility] Eos Absolute 0.13 0.00 - 0.40 x10(3)/mc L 08/03/2024 5:29 AM [facility] Basophil % 0.4 % 08/03/2024 5:29 AM [facility] Baso Absolute <0.04 0.00 - 0.10 x10(3)/mc L 08/03/2024 5:29 AM EST [facility] Immature Gran % 0.3 % 5:29 AM [facility] Immature Gran Absolute <0.04 0.00 - 0.04 x10(3)/mc L 08/03/2024 5:29 AM [facility] Blood VENOUS BLOOD SPECIMEN / Unknown Venipuncture / Unknown 08/03/2024 5:16 AM EST 08/03/2024 5:23 AM EST Bridgette Stauffer MD HEMATOLOGY ORDERABLE S Performing Organization Address City/[facility]/ZIP Co de Phone Number [facility] [place] [address] * Magnesium (08/03/2024 5:16 AM EST) Pathologist [facility] Magnesium 0.89 0.69 - 1.07 mMol/L 08/03/2024 5:56 AM [facility] Blood VENOUS BLOOD SPECIMEN / Unknown Venipuncture / Unknown 08/03/2024 5:16 AM EST 08/03/2024 5:23 AM EST Bridgette Stauffer MD CHEMISTRY ORDERABLES Performing Organization Address City/[facility] Co de Phone Number [facility] [place] [address] * (ABNORMAL) Basic Metabolic Panel (08/03/2024 5:16 AM EST) Glucose 98 65 - 199 mg/dL 08/03/2024 5:56 AM [facility] Comment:Glucose Concentratio n >=200 mg/dL plus symptoms is consistent with Diabetes Mellitus. Blood Urea Nitrogen 16 10 - 20 mg/dL 08/03/2024 5:56 AM [facility] Creatinine 0.85 0.80 - 1.50 mg/dL 08/03/2024 5:56 AM [facility] Sodium 137 135 - 145 mMol/L 08/03/2024 5:56 AM EST [facility] Potassium 4.5 3.5 - 5.0 mMol/L 08/03/2024 5:56 AM [facility] Chloride 106 98 - 107 mMol/L 08/03/2024 5:56 AM [facility] Carbon Dioxide 21(L) 22 - 31 mMol/L 08/03/2024 5:56 AM [facility] Anion Gap 10 5 - 15 mMol/L 08/03/2024 5:56 AM [facility] Calcium 8.3(L) 8.5 - 10.5 mg/dL 08/03/2024 5:56 AM [facility] Est Glomerular Filtration Rate - Male 92 mL/min/1. 73 m?? 08/03/2024 5:56 AM [facility] Comment: This patient's estimated GFR [...] AM EST Bridgette Stauffer MD CHEMISTRY ORDERABLES [facility] [place] [address] * POC, GLUCOSE (08/02/2024 7:47 AM EST) [...] O RDERABLES [facility] [place] [address] * (ABNORMAL) CBC (with Diff) (08/02/2024 4:20 AM EST) White Blood Cell 8.51 4.00 - 9.50 x10(3)/mc L 08/02/2024 4:50 AM [facility] Red Blood Cell 4.41(L) 4.58 - 5.54 x10(6)/mc L 08/02/2024 4:50 AM [facility] Hemoglobin 12.2(L) 13.7 - 16.5 g/dL 08/02/2024 4:50 AM [facility] Hematocrit 35.8(L) 40.5 - 48.5 % 08/02/2024 4:50 AM [facility] Mean Cell Volume 81.2(L) 82.9 - 93.1 fL 08/02/2024 4:50 AM [facility] Mean Cell Hemoglobin 27.7 27.5 - 32.1 pg 08/02/2024 4:50 AM [facility] Mean Cell Hemoglobin Concentration 34.1 32.0 - 35.7 g/dL 08/02/2024 4:50 AM [facility] Platelet 111(L) 145 - 357 x10(3)/mc L 08/02/2024 4:50 AM [facility] Mean Platelet Volume 11.1 7.6 - 12.9 fL 08/02/2024 4:50 AM [facility] RDW Standard Deviation 41.9 36.0 - 45.0 fL 08/02/2024 4:50 AM [facility] RDW coefficient of variation 14.1(H) 11.4 - 13.8 % 08/02/2024 4:50 AM [facility] NRBC% auto 0.0 % 08/02/2024 4:50 AM [facility] NRBC Absolute <0.01 <0.01 x10(3)/mc L 08/02/2024 4:50 AM [facility] Neutrophil % 77.7 % 08/02/2024 4:50 AM [facility] Neutrophil Absolute (ANC) - Automated 6.62(H) 1.70 - 6.10 x10(3)/mc L 08/02/2024 4:50 AM [facility] Lymph % 11.9 % 08/02/2024 4:50 AM [facility] Lymph Absolute 1.01 0.90 - 3.20 x10(3)/mc L 08/02/2024 4:50 AM [facility] Monocyte % 8.2 % 08/02/2024 4:50 AM [facility] Monocyte Absolute 0.70 0.30 - 0.90 x10(3)/mc L 08/02/2024 4:50 AM [facility] Eos % 1.4 % 08/02/2024 4:50 AM [facility] Eos Absolute 0.12 0.00 - 0.40 x10(3)/mc L 08/02/2024 4:50 AM [facility] Basophil % 0.4 % 08/02/2024 4:50 AM [facility] Baso Absolute <0.04 0.00 - 0.10 x10(3)/mc L 08/02/2024 4:50 AM [facility] Immature Gran % 0.4 % 4:50 AM [facility] Immature Gran Absolute <0.04 0.00 - 0.04 x10(3)/mc L 08/02/2024 4:50 AM [facility] Blood VENOUS BLOOD SPECIMEN / Unknown Venipuncture / Unknown 08/02/2024 4:20 AM EST 08/02/2024 4:37 AM EST Bridgette Stauffer MD HEMATOLOGY ORDERABLE S [facility] [place] [address] * Magnesium (08/02/2024 4:20 AM EST) Magnesium 0.79 0.69 - 1.07 mMol/L 08/02/2024 5:06 AM [facility] Blood VENOUS BLOOD SPECIMEN / Unknown Venipuncture / Unknown 08/02/2024 4:20 AM EST 08/02/2024 4:37 AM EST Bridgette Stauffer MD CHEMISTRY ORDERABLES Performing Organization Address City/[facility]/ZIP Co de Phone Number [facility] [place] [address] * (ABNORMAL) Basic Metabolic Panel (08/02/2024 4:20 AM EST) Glucose 110 65 - 199 mg/dL 08/02/2024 5:06 AM [facility] Comment:Glucose Concentratio n >=200 mg/dL plus symptoms is consistent with Diabetes Mellitus. Blood Urea Nitrogen 12 10 - 20 mg/dL 08/02/2024 5:06 AM [facility] Creatinine 0.90 0.80 - 1.50 mg/dL 08/02/2024 5:06 AM [facility] Sodium 139 135 - 145 mMol/L 08/02/2024 5:06 AM [facility] Potassium 4.0 3.5 - 5.0 mMol/L 08/02/2024 5:06 AM [facility] Chloride 108(H) 98 - 107 mMol/L 08/02/2024 5:06 AM [facility] Carbon Dioxide 23 22 - 31 mMol/L 08/02/2024 5:06 AM [facility] Anion Gap 8 5 - 15 mMol/L 08/02/2024 5:06 AM EST [facility] Calcium 8.1(L) 8.5 - 10.5 mg/dL 08/02/2024 5:06 AM EST [facility] Est Glomerular Filtration Rate - Male 91 mL/min/1. 73 m?? 08/02/2024 5:06 AM EST [facility] [...] Stauffer MD CHEMISTRY ORDERABLES Performing Organization Address City/[facility]/ZIP Co de Phone Number [facility] [place] [address] * Potassium (08/01/2024 8:39 PM EST) Potassium 4.0 3.5 - 5.0 mMol/L 08/01/2024 9:21 PM EST [facility] Blood VENOUS BLOOD SPECIMEN / Unknown Venipuncture / Unknown 08/01/2024 8:39 PM EST 08/01/2024 8:51 PM EST Aubree Silverio MD CHEMISTRY ORDERABL ES [facility] [place] [address] * POC, GLUCOSE (08/01/2024 8:35 PM EST) Glucometer, POC 112 65 - 199 mg/dL 08/01/2024 8:36 PM EST [facility] Comment:Supplemental ranges: <140 mg/dL before meals <180 mg/dL all other times of the day. Blood CAPILLARY BLOOD / Unknown 08/01/2024 8:35 PM EST 08/01/2024 8:36 PM EST Krystal Parker MD POINT OF CARE TEST O RDERASHAY [facility] [place] [address] * POC, GLUCOSE (08/01/2024 4:55 PM EST) Glucometer, POC 99 65 - 199 mg/dL 08/01/2024 4:56 PM EST [facility] Comment:Supplemental ranges: <140 mg/dL before meals <180 mg/dL all other times of the day. Blood CAPILLARY BLOOD / Unknown 08/01/2024 4:55 PM EST 08/01/2024 4:56 PM EST Krystal Parker MD POINT OF CARE TEST O JOSH Performing Organization Address [facility]/ZIP Co de Phone Number [facility] [place] [address] * POC, GLUCOSE (08/01/2024 12:42 PM EST) Glucometer, POC 130 65 - 199 mg/dL 08/01/2024 12:43 PM EST [facility] Comment:Supplemental ranges: <140 mg/dL before meals <180 mg/dL all other times of the day. Blood CAPILLARY BLOOD / Unknown 08/01/2024 12:42 PM EST 08/01/2024 12:43 PM EST Krystal Parker MD POINT OF CARE TEST O JOSH Performing Organization Address City/[facility]/ZIP Co de Phone Number [facility] [place] [address] * (ABNORMAL) Cooximetry, POC (08/01/2024 10:45 AM EST) pO2, Coox 32 mmHg 08/01/2024 10:48 AM [facility] Hemoglobin, Coox 12.9(L) 13.7 - 16.5 g/dL 08/01/2024 10:48 AM [facility] Oxyhemoglobin, Coox 66.7 % 08/01/2024 10:48 AM [facility] Carboxyhemoglo bin, Coox 1.1 % 08/01/2024 10:48 AM [facility] Comment: Nonsmokers: 0.5-1.5% COHB ?? Smokers: Variable ??but usually less than 10% ?? Toxic: 20-30% COHB ?? Lethal: Greater than 60% COHB Methemoglobin, Coox 0.3 <=1.5 % 08/01/2024 10:48 AM [facility] Blood (Mixed Venous) 08/01/2024 10:45 AM EST 08/01/2024 10:48 AM EST Krystal Parker MD POINT OF CARE TEST O RDERABLES [facility] [place] [address] * Potassium (08/01/2024 8:20 AM EST) Potassium 4.0 3.5 - 5.0 mMol/L 08/01/2024 10:17 AM EST [facility] Blood ARTERIAL BLOOD / Unknown Venipuncture / Unknown 08/01/2024 8:20 AM EST 08/01/2024 8:30 AM EST Aubree Silverio MD CHEMISTRY ORDERABL ES [facility] [place] [address] * POC, GLUCOSE (08/01/2024 7:44 AM EST) Pathologist [facility] Glucometer, POC 86 65 - 199 mg/dL 08/01/2024 7:44 AM EST [facility] Comment:Supplemental ranges: <140 mg/dL before meals <180 mg/dL all other times of the day. Blood CAPILLARY BLOOD / Unknown 08/01/2024 7:44 AM EST 08/01/2024 7:44 AM EST Krystal Parker MD POINT OF CARE TEST O RDERABLES [facility] [place] [address] * (ABNORMAL) CBC (with Diff) (08/01/2024 4:18 AM EST) [facility] White Blood Cell 8.51 4.00 - 9.50 x10(3)/mc L 08/01/2024 4:53 AM [facility] Red Blood Cell 4.12(L) 4.58 - 5.54 x10(6)/mc L 08/01/2024 4:53 AM [facility] Hemoglobin 11.2(L) 13.7 - 16.5 g/dL 08/01/2024 4:53 AM [facility] Hematocrit 33.8(L) 40.5 - 48.5 % 08/01/2024 4:53 AM [facility] Mean Cell Volume 82.0(L) 82.9 - 93.1 fL 08/01/2024 4:53 AM [facility] Mean Cell Hemoglobin 27.2(L) 27.5 - 32.1 pg 08/01/2024 4:53 AM [facility] Mean Cell Hemoglobin Concentration 33.1 32.0 - 35.7 g/dL 08/01/2024 4:53 AM [facility] Platelet 94(L) 145 - 357 x10(3)/mc L 08/01/2024 4:53 AM [facility] Mean Platelet Volume 10.9 7.6 - 12.9 fL 08/01/2024 4:53 AM [facility] RDW Standard Deviation 44.2 36.0 - 45.0 fL 08/01/2024 4:53 AM [facility] RDW coefficient of variation 14.7(H) 11.4 - 13.8 % 08/01/2024 4:53 AM [facility] NRBC% auto 0.0 % 08/01/2024 4:53 AM [facility] NRBC Absolute <0.01 <0.01 x10(3)/mc L 08/01/2024 4:53 AM [facility] Neutrophil % 82.7 % 08/01/2024 4:53 AM [facility] Neutrophil Absolute (ANC) - Automated 7.04(H) 1.70 - 6.10 x10(3)/mc L 08/01/2024 4:53 AM [facility] Lymph % 8.6 % 08/01/2024 4:53 AM [facility] Lymph Absolute 0.73(L) 0.90 - 3.20 x10(3)/mc L 08/01/2024 4:53 AM [facility] Monocyte % 7.6 % 08/01/2024 4:53 AM [facility] Monocyte Absolute 0.65 0.30 - 0.90 x10(3)/mc L 08/01/2024 4:53 AM [facility] Eos % 0.5 % 08/01/2024 4:53 AM [facility] Eos Absolute 0.04 0.00 - 0.40 x10(3)/mc L 08/01/2024 4:53 AM [facility] Basophil % 0.2 % 08/01/2024 4:53 AM [facility] Baso Absolute <0.04 0.00 - 0.10 x10(3)/mc L 08/01/2024 4:53 AM [facility] Immature Gran % 0.4 % 4:53 AM [facility] Immature Gran Absolute <0.04 0.00 - 0.04 x10(3)/mc L 08/01/2024 4:53 AM [facility] Blood VENOUS BLOOD SPECIMEN / Unknown Venipuncture / Unknown 08/01/2024 4:18 AM EST 08/01/2024 4:29 AM EST Bridgette Stauffer MD HEMATOLOGY ORDERABLE S Performing Organization Address [facility] Co de Phone Number [facility] [place] [address] * Magnesium (08/01/2024 4:18 AM EST) Pathologist [facility] Magnesium 0.74 0.69 - 1.07 mMol/L 08/01/2024 5:00 AM [facility] Blood VENOUS BLOOD SPECIMEN / Unknown Venipuncture / Unknown 08/01/2024 4:18 AM EST 08/01/2024 4:29 AM EST Bridgette Stauffer MD CHEMISTRY ORDERABLES Performing Organization Address [facility] Co de Phone Number [facility] [place] [address] * (ABNORMAL) Basic Metabolic Panel (08/01/2024 4:18 AM EST) Pathologist [facility] Glucose 107 65 - 199 mg/dL 08/01/2024 5:00 AM [facility] Comment:Glucose Concentratio n >=200 mg/dL plus symptoms is consistent with Diabetes Mellitus. Blood Urea Nitrogen 8(L) 10 - 20 mg/dL 08/01/2024 5:00 AM [facility] Creatinine 0.82 0.80 - 1.50 mg/dL 08/01/2024 5:00 AM [facility] Sodium 137 135 - 145 mMol/L 08/01/2024 5:00 AM [facility] Potassium 3.9 3.5 - 5.0 mMol/L 08/01/2024 5:00 AM [facility] Chloride 108(H) 98 - 107 mMol/L 08/01/2024 5:00 AM [facility] Carbon Dioxide 21(L) 22 - 31 mMol/L 08/01/2024 5:00 AM [facility] Anion Gap 8 5 - 15 mMol/L 08/01/2024 5:00 AM [facility] Calcium 7.7(L) 8.5 - 10.5 mg/dL 08/01/2024 5:00 AM [facility] Est Glomerular Filtration Rate - Male 93 mL/min/1. 73 m?? 08/01/2024 5:00 AM [facility] Comment: This patient's estimated GFR [...] AM EST Bridgette Stauffer MD CHEMISTRY ORDERABLES [facility] [place] [address] * POC, GLUCOSE (07/31/2024 8:41 PM EST) Glucometer, POC 73 65 - 199 mg/dL 07/31/2024 8:41 PM EST [facility] Comment:Supplemental ranges: <140 mg/dL before meals <180 mg/dL all other times of the day. Blood CAPILLARY BLOOD / Unknown 07/31/2024 8:41 PM EST 07/31/2024 8:41 PM EST Krystal Parker MD POINT OF CARE TEST O RDERABLES Performing Organization Address [facility]/State/ZIP Co de Phone Number [facility] [place] [address] * CARDIAC CATHETERIZATION (07/31/2024 5:53 PM EST) Anatomical Region Laterality Modality Other Narrative 08/01/2024 12:37 PM EST ?[facility] ? Cardiac Catheterization/Intervention Report ? Patient Name: Korey Montoya Kyrie. ? Procedure Date: 07/31/2024 ? A #: [id number] ? Primary Physician: Janelle, Maldonado T ? Case #: [id number] ? File Name: [id number] ? Catheterization Order Number: [id number] ? [facility] ? Final Report [place], [place] ? Patient Name: ? Korey Montoya ?ID#: ?[id number] ? : ?1950 ? Procedure Date: ? July 31, 2024 ?Case #: ? [id number] ? Room: ? 1 ? Case [...] ? Comments: ?Impella removed from the right CONTINUOUS CHURN BUTTERMAKER with deployment of Perclose and ?Angioseal. ??Good [...] Maldonado Luis MD - 08/01/2024 [facility] Cardiac Catheterization/Intervention Report Patient Name: Korey Montoya Procedure Date: 07/31/2024 A #: [id number] Primary Physician: Maldonado Luis Case #: [id number] File Name: [id number] Catheterization Order Number: [id number] [facility] FinalReport [place], [place] Patient Name: Korey Montoya ID#:[id number] :1950 Procedure Date: July 31, 2024 Case [...] was designated as ASA Class IV. The [facility] clinical frailtyscale is 4: Vulnerable. Diagnostic [...] procedures. Comments: Impella removed from the right CONTINUOUS CHURN BUTTERMAKER with deployment of Perclose and Angioseal. Good [...] * POC, GLUCOSE (07/31/2024 11:04 AM EST) [facility] Glucometer, POC 82 65 - 199 mg/dL 07/31/2024 11:04 AM EST [facility] Comment:Supplemental ranges: <140 mg/dL before meals <180 mg/dL all other times of the day. Blood CAPILLARY BLOOD / Unknown 07/31/2024 11:04 AM EST 07/31/2024 11:04 AM EST Krystal Parker MD POINT OF CARE TEST O RDERABLES [facility] [place] [address] * (ABNORMAL) Blood Gas, Arterial POC (07/31/2024 8:29 AM EST) pH, Arterial 7.48(H) 7.35 - 7.45 07/31/2024 8:30 AM [facility] PCO2, Arterial 29(L) 35 - 45 mmHg 07/31/2024 8:30 AM [facility] PO2, Arterial 71(L) 85 - 104 mmHg 07/31/2024 8:30 AM [facility] Bicarbonate, Arterial 20.6 20.0 - 26.0 mmol/L 07/31/2024 8:30 AM [facility] Base Excess, Arterial -3.0 -3.0 - 3.0 mmol/L 07/31/2024 8:30 AM [facility] Hemoglobin, Arterial 12.3(L) 13.7 - 16.5 g/dL 07/31/2024 8:30 AM [facility] Oxyhemoglobin, Arterial 94.4 94.0 - 97.0 % 07/31/2024 8:30 AM [facility] Carboxyhemoglobin , Arterial 0.7 % 07/31/2024 8:30 AM [facility] Comment: Nonsmokers: 0.5-1.5% COHB ?? Smokers: Variable ??but usually less than 10% ?? Toxic: 20-30% COHB ?? Lethal: Greater than 60% COHB Methemoglobin, Arterial 0.3 <=1.5 % 07/31/2024 8:30 AM [facility] Sodium, Arterial 138 135 - 145 mmol/L 07/31/2024 8:30 AM [facility] Potassium, Arterial 3.5 3.5 - 5.0 mmol/L 07/31/2024 8:30 AM [facility] Chloride, Arterial 109(H) 98 - 107 mmol/L 07/31/2024 8:30 AM [facility] Lactate, Arterial 0.8 0.5 - 2.2 mmol/L 07/31/2024 8:30 AM [facility] Fraction of Inspired Oxygen 21 % 07/31/2024 8:30 AM [facility] PF Ratio 338 Ratio 07/31/2024 8:30 AM [facility] Comment:PF ratio calculated using the non-temperature corrected pO2 result. IONIZED CALCIUM, ARTERIAL 1.08(L) 1.15 - 1.33 mmol/L 07/31/2024 8:30 AM [facility] Glucose, Arterial 86 65 - 199 mg/dL 07/31/2024 8:30 AM [facility] Comment:Glucose Concentratio n >=200 mg/dL plus symptoms is consistent with Diabetes Mellitus. Blood ARTERIAL BLOOD / Unknown 07/31/2024 8:29 AM EST 07/31/2024 8:30 AM EST Krystal Parker MD POINT OF CARE TEST O JOSH [facility] [place] [address] * POC, GLUCOSE (07/31/2024 7:47 AM EST) Glucometer, POC 82 65 - 199 mg/dL 07/31/2024 7:53 AM [facility] Comment:Supplemental ranges: <140 mg/dL before meals <180 mg/dL all other times of the day. Blood CAPILLARY BLOOD / Unknown 07/31/2024 7:47 AM EST 07/31/2024 7:53 AM EST Krystal Parker MD POINT OF CARE TEST O RDERASHAY [facility] [place] [address] * (ABNORMAL) CBC (with Diff) (07/31/2024 1:08 AM EST) White Blood Cell 10.25(H) 4.00 - 9.50 x10(3)/mc L 07/31/2024 1:28 AM [facility] Red Blood Cell 4.13(L) 4.58 - 5.54 x10(6)/mc L 07/31/2024 1:28 AM [facility] Hemoglobin 11.2(L) 13.7 - 16.5 g/dL 07/31/2024 1:28 AM [facility] Hematocrit 33.9(L) 40.5 - 48.5 % 07/31/2024 1:28 AM [facility] Mean Cell Volume 82.1(L) 82.9 - 93.1 fL 07/31/2024 1:28 AM [facility] Mean Cell Hemoglobin 27.1(L) 27.5 - 32.1 pg 07/31/2024 1:28 AM [facility] Mean Cell Hemoglobin Concentration 33.0 32.0 - 35.7 g/dL 07/31/2024 1:28 AM [facility] Platelet 109(L) 145 - 357 x10(3)/mc L 07/31/2024 1:28 AM [facility] Mean Platelet Volume 10.4 7.6 - 12.9 fL 07/31/2024 1:28 AM [facility] RDW Standard Deviation 45.1(H) 36.0 - 45.0 fL 07/31/2024 1:28 AM [facility] RDW coefficient of variation 15.1(H) 11.4 - 13.8 % 07/31/2024 1:28 AM [facility] NRBC% auto 0.0 % 07/31/2024 1:28 AM [facility] NRBC Absolute <0.01 <0.01 x10(3)/mc L 07/31/2024 1:28 AM [facility] Neutrophil % 79.7 % 07/31/2024 1:28 AM [facility] Neutrophil Absolute (ANC) - Automated 8.17(H) 1.70 - 6.10 x10(3)/mc L 07/31/2024 1:28 AM [facility] Lymph % 12.8 % 07/31/2024 1:28 AM [facility] Lymph Absolute 1.31 0.90 - 3.20 x10(3)/mc L 07/31/2024 1:28 AM [facility] Monocyte % 6.9 % 07/31/2024 1:28 AM [facility] Monocyte Absolute 0.71 0.30 - 0.90 x10(3)/mc L 07/31/2024 1:28 AM [facility] Eos % 0.1 % 07/31/2024 1:28 AM [facility] Eos Absolute <0.04 0.00 - 0.40 x10(3)/mc L 07/31/2024 1:28 AM [facility] Basophil % 0.3 % 07/31/2024 1:28 AM [facility] Baso Absolute <0.04 0.00 - 0.10 x10(3)/mc L 07/31/2024 1:28 AM [facility] Immature Gran % 0.2 % 1:28 AM [facility] Immature Gran Absolute <0.04 0.00 - 0.04 x10(3)/mc L 07/31/2024 1:28 AM [facility] Blood VENOUS BLOOD SPECIMEN / Unknown Venipuncture / Unknown 07/31/2024 1:08 AM EST 07/31/2024 1:18 AM EST Bridgette Stauffer MD HEMATOLOGY ORDERABLE S [facility] [place] [address] * Magnesium (07/31/2024 1:08 AM EST) Pathologist [facility] Magnesium 0.89 0.69 - 1.07 mMol/L 07/31/2024 1:46 AM [facility] Blood VENOUS BLOOD SPECIMEN / Unknown Venipuncture / Unknown 07/31/2024 1:08 AM EST 07/31/2024 1:18 AM EST Bridgette Stauffer MD CHEMISTRY ORDERABLES [facility] [address] [facility] [place] [address] * (ABNORMAL) Basic Metabolic Panel (07/31/2024 1:08 AM EST) Pathologist [facility] Glucose 97 65 - 199 mg/dL 07/31/2024 1:46 AM [facility] Comment:Glucose Concentratio n >=200 mg/dL plus symptoms is consistent with Diabetes Mellitus. Blood Urea Nitrogen 11 10 - 20 mg/dL 07/31/2024 1:46 AM [facility] Creatinine 0.96 0.80 - 1.50 mg/dL 07/31/2024 1:46 AM EST [facility] Sodium 140 135 - 145 mMol/L 07/31/2024 1:46 AM EST [facility] Potassium 4.1 3.5 - 5.0 mMol/L 07/31/2024 1:46 AM [facility] Chloride 110(H) 98 - 107 mMol/L 07/31/2024 1:46 AM [facility] Carbon Dioxide 24 22 - 31 mMol/L 07/31/2024 1:46 AM [facility] Anion Gap 6 5 - 15 mMol/L 07/31/2024 1:46 AM EST [facility] Calcium 7.7(L) 8.5 - 10.5 mg/dL 07/31/2024 1:46 AM [facility] Est Glomerular Filtration Rate - Male 84 mL/min/1. 73 m?? 07/31/2024 1:46 AM [facility] Comment: This patient's estimated GFR [...] AM EST Bridgette Stauffer MD CHEMISTRY ORDERABLES [facility] [place] [address] * (ABNORMAL) Hepatic Function Panel (07/31/2024 1:08 AM EST) Albumin 3.1(L) 3.2 - 5.2 g/dL 07/31/2024 1:46 AM EST [facility] Aspartate Aminotransferase 192(H) <=39 unit/L 07/31/2024 1:46 AM [facility] Alanine Aminotransferase 59(H) 0 - 55 unit/L 07/31/2024 1:46 AM [facility] Alkaline Phosphatase 46 40 - 130 unit/L 07/31/2024 1:46 AM [facility] Bilirubin, Total 0.4 <=1.3 mg/dL 07/31/2024 1:46 AM [facility] Bilirubin, Direct <0.2 0.0 - 0.3 mg/dL 07/31/2024 1:46 AM [facility] Protein, Total 5.0(L) 6.1 - 8.0 g/dL 07/31/2024 1:46 AM [facility] Blood VENOUS BLOOD SPECIMEN / Unknown Venipuncture / Unknown 07/31/2024 1:08 AM EST 07/31/2024 1:18 AM EST Krystal Parker MD CHEMISTRY ORDERABLES Performing Organization Address [facility]/ZIP Co de Phone Number [facility] [place] [address] * POC, GLUCOSE (07/30/2024 8:03 PM EST) Glucometer, POC 86 65 - 199 mg/dL 07/30/2024 8:03 PM EST [facility] Comment:Supplemental ranges: <140 mg/dL before meals <180 mg/dL all other times of the day. Blood CAPILLARY BLOOD / Unknown 07/30/2024 8:03 PM EST 07/30/2024 8:03 PM EST Krystal Parker MD POINT OF CARE TEST O RDERABLES Performing Organization Address City/[facility]/ZIP Co de Phone Number [facility] [place] [address] * Potassium (07/30/2024 8:03 PM EST) [facility] Potassium 3.8 3.5 - 5.0 mMol/L 07/30/2024 9:13 PM EST [facility] Blood VENOUS BLOOD SPECIMEN / Unknown Venipuncture / Unknown 07/30/2024 8:03 PM EST 07/30/2024 8:22 PM EST Aubree Silverio MD CHEMISTRY ORDERABL ES Performing Organization Address City/[facility]/ZIP Co de Phone Number [facility] [place] [address] * POC, GLUCOSE (07/30/2024 6:23 PM EST) Glucometer, POC 93 65 - 199 mg/dL 07/30/2024 6:24 PM EST [facility] Comment:Supplemental ranges: <140 mg/dL before meals <180 mg/dL all other times of the day. Blood CAPILLARY BLOOD / Unknown 07/30/2024 6:23 PM EST 07/30/2024 6:24 PM EST Krystal Parker MD POINT OF CARE TEST O RDKAY Performing Organization Address [facility] Co de Phone Number [facility] [place] [address] * POC, GLUCOSE (07/30/2024 5:08 PM EST) Glucometer, POC 78 65 - 199 mg/dL 07/30/2024 5:08 PM EST [facility] Comment:Supplemental ranges: <140 mg/dL before meals <180 mg/dL all other times of the day. Blood CAPILLARY BLOOD / Unknown 07/30/2024 5:08 PM EST 07/30/2024 5:08 PM EST Krystal Parker MD POINT OF CARE TEST O JOSH Performing Organization Address [facility] Co de Phone Number [facility] [place] [address] * (ABNORMAL) Phosphorus (07/30/2024 3:08 PM EST) Phosphorus 2.1(L) 2.5 - 4.5 mg/dL 07/30/2024 3:58 PM EST [facility] Blood VENOUS BLOOD SPECIMEN / Unknown Venipuncture / Unknown 07/30/2024 3:08 PM EST 07/30/2024 3:12 PM EST Aubree Silverio MD CHEMISTRY ORDERABL ES Performing Organization Address [facility] Co de Phone Number [facility] [place] [address] * Magnesium (07/30/2024 3:08 PM EST) Magnesium 0.90 0.69 - 1.07 mMol/L 07/30/2024 3:58 PM EST [facility] Blood VENOUS BLOOD SPECIMEN / Unknown Venipuncture / Unknown 07/30/2024 3:08 PM EST 07/30/2024 3:12 PM EST Aburee Silverio MD CHEMISTRY ORDERABL ES [facility] [place] [address] * (ABNORMAL) Basic Metabolic Panel (07/30/2024 3:08 PM EST) Glucose 105 65 - 199 mg/dL 07/30/2024 4:17 PM [facility] Comment:Glucose Concentratio n >=200 mg/dL plus symptoms is consistent with Diabetes Mellitus. Blood Urea Nitrogen 13 10 - 20 mg/dL 07/30/2024 4:17 PM [facility] Creatinine 1.01 0.80 - 1.50 mg/dL 07/30/2024 4:17 PM [facility] Sodium 141 135 - 145 mMol/L 07/30/2024 4:17 PM [facility] Potassium 3.4(L) 3.5 - 5.0 mMol/L 07/30/2024 4:17 PM [facility] Chloride 109(H) 98 - 107 mMol/L 07/30/2024 4:17 PM [facility] Carbon Dioxide 21(L) 22 - 31 mMol/L 07/30/2024 4:17 PM [facility] Anion Gap 11 5 - 15 mMol/L 07/30/2024 4:17 PM [facility] Calcium 7.9(L) 8.5 - 10.5 mg/dL 07/30/2024 4:17 PM [facility] Est Glomerular Filtration Rate - Male 79 mL/min/1. 73 m?? 07/30/2024 4:17 PM [facility] Comment: This patient's estimated GFR [...] EST Aubree Silverio MD CHEMISTRY ORDERABL ES [facility] [place] [address] * ECHO LMTD W CONTRAST W LMTD SPEC DOPP COLOR DOPP (07/30/2024 11:42 AM EST) Anatomical Region Laterality Modality Cardiac Other 07/30/2024 10:2 2 AM EST Narrative 07/30/2024 12:34 PM EST [address] [place] [address] ? Echocardiogram Report Name: MONTOYA KOREY Kyrie ? Study Date: 07/30/2024 10:22 AMBP: 124/66 mmHg : 1950 ? Height: 168 cm ? Account: [id number] Age: 74 yrs ? Weight: 65 kg Gender: Male ?BSA: 1.7 m2 Ordering Physician: Aubree Silverio MD Referring Physician: CHAPARRO FERRERA Performed By: OMERO Millan Reason For Study: ST elevation myocardial infarction involving left anterior descending (LAD) coronary artery Interpreting Fellow: Ivan Hernandez. Exam Location: [facility]. Interpretation Summary Left ventricle is [...] Compared to the overnight study by the information systems director fellow the impella position is stable. 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 Procedure Limited - 69250. Image enhancement Definity was used for both [...] Note Kathleen Banda MD - 07/30/2024 [address] [place] [address] Echocardiogram Report Name: KOREY MONTOYA Study Date: 0:22 AMBP: 124/66 mmHg : 1950 Height: 168 cm Account: [id number] Age: 74 yrs Weight: 65 kg Gender: Male BSA: 1.7 m2 Ordering Physician: Aubree Silverio MD Referring Physician: CHAPARRO FERRERA Performed By: OMERO Millan Reason For Study: ST elevation myocardial infarction involving leftanterior descending (LAD) coronary artery Interpreting Fellow: Ivan Hernandez. Exam Location: [facility]. Interpretation Summary Left ventricle is [...] Compared to the overnight study by the information systems director fellow the impella positionis stable. The global left ventricular systolic function has improvedpredominantly via recruitment outside the LAD territory which remains akinetic. Procedure Limited - 61682. Image enhancement Definity was used for both [...] - 199 mg/dL 07/30/2024 11:17 AM EST [facility] Comment:Supplemental ranges: <140 mg/dL before meals <180 mg/dL all other times of the day. Blood CAPILLARY BLOOD / Unknown 07/30/2024 11:17 AM EST 07/30/2024 11:17 AM EST Aubree Silverio MD POINT OF CARE TEST ORDERABLES [facility] [place] [address] * (ABNORMAL) Blood Gas, Arterial POC (07/30/2024 8:16 AM EST) pH, Arterial 7.44 7.35 - 7.45 07/30/2024 8:17 AM [facility] PCO2, Arterial 29(L) 35 - 45 mmHg 07/30/2024 8:17 AM [facility] PO2, Arterial 109(H) 85 - 104 mmHg 07/30/2024 8:17 AM [facility] Bicarbonate, Arterial 19.4(L) 20.0 - 26.0 mmol/L 07/30/2024 8:17 AM [facility] Base Excess, Arterial -4.7(L) -3.0 - 3.0 mmol/L 07/30/2024 8:17 AM [facility] Hemoglobin, Arterial 12.2(L) 13.7 - 16.5 g/dL 07/30/2024 8:17 AM [facility] Oxyhemoglobin, Arterial 97.1(H) 94.0 - 97.0 % 07/30/2024 8:17 AM [facility] Carboxyhemoglob in, Arterial 1.0 % 07/30/2024 8:17 AM [facility] Comment: Nonsmokers: 0.5-1.5% COHB ?? Smokers: Variable ??but usually less than 10% ?? Toxic: 20-30% COHB ?? Lethal: Greater than 60% COHB Methemoglobin, Arterial 0.1 <=1.5 % 07/30/2024 8:17 AM [facility] Sodium, Arterial 132(L) 135 - 145 mmol/L 07/30/2024 8:17 AM EST [facility] Potassium, Arterial 3.9 3.5 - 5.0 mmol/L 07/30/2024 8:17 AM [facility] Chloride, Arterial 105 98 - 107 mmol/L 07/30/2024 8:17 AM [facility] Lactate, Arterial 1.2 0.5 - 2.2 mmol/L 07/30/2024 8:17 AM [facility] Fraction of Inspired Oxygen 21 % 07/30/2024 8:17 AM [facility] PF Ratio 519 Ratio 07/30/2024 8:17 AM [facility] Comment:PF ratio calculated using the non-temperature corrected pO2 result. IONIZED CALCIUM, ARTERIAL 1.15 1.15 - 1.33 mmol/L 07/30/2024 8:17 AM [facility] Blood ARTERIAL BLOOD / Unknown 07/30/2024 8:16 AM EST 07/30/2024 8:17 AM EST Aubree Silverio MD POINT OF CARE TEST ORDERABLES [facility] [place] [address] * (ABNORMAL) Troponin - Single (07/30/2024 8:09 [...] can be found in the [facility] Laboratory Test Catalog Troponin - [email or web address] Reference: Fourth [place] Definition of Myocardial Infarction. Journal of the [place] [employer] 2018;72:3893-6961 Blood VENOUS BLOOD SPECIMEN / Unknown Venipuncture / Unknown 07/30/2024 8:09 AM EST 07/30/2024 8:26 AM EST Aubree Silverio MD CHEMISTRY ORDERABL ES Performing Organization Address [facility] Co de Phone Number [facility] [place] [address] * POC, GLUCOSE (07/30/2024 7:40 AM EST) Glucometer, POC 111 65 - 199 mg/dL 07/30/2024 7:40 AM EST [facility] Comment:Supplemental ranges: <140 mg/dL before meals <180 mg/dL all other times of the day. Blood CAPILLARY BLOOD / Unknown 07/30/2024 7:40 AM EST 07/30/2024 7:40 AM EST Aubree Silverio MD POINT OF CARE TEST ORDERABLES Performing Organization Address [facility] Co de Phone Number [facility] [place] [place] [address] * (ABNORMAL) CBC (with Diff) (07/30/2024 2:11 AM EST) White Blood Cell 11.25(H) 4.00 - 9.50 x10(3)/mc L 07/30/2024 2:33 AM EST [facility] Red Blood Cell 4.50(L) 4.58 - 5.54 x10(6)/mc L 07/30/2024 2:33 AM [facility] Hemoglobin 12.2(L) 13.7 - 16.5 g/dL 07/30/2024 2:33 AM [facility] Hematocrit 37.1(L) 40.5 - 48.5 % 07/30/2024 2:33 AM [facility] Mean Cell Volume 82.4(L) 82.9 - 93.1 fL 07/30/2024 2:33 AM [facility] Mean Cell Hemoglobin 27.1(L) 27.5 - 32.1 pg 07/30/2024 2:33 AM [facility] Mean Cell Hemoglobin Concentration 32.9 32.0 - 35.7 g/dL 07/30/2024 2:33 AM [facility] Platelet 166 145 - 357 x10(3)/mc L 07/30/2024 2:33 AM [facility] Mean Platelet Volume 10.6 7.6 - 12.9 fL 07/30/2024 2:33 AM [facility] RDW Standard Deviation 44.6 36.0 - 45.0 fL 07/30/2024 2:33 AM [facility] RDW coefficient of variation 14.6(H) 11.4 - 13.8 % 07/30/2024 2:33 AM [facility] NRBC% auto 0.0 % 07/30/2024 2:33 AM [facility] NRBC Absolute <0.01 <0.01 x10(3)/mc L 07/30/2024 2:33 AM [facility] Neutrophil % 88.9 % 07/30/2024 2:33 AM [facility] Neutrophil Absolute (ANC) - Automated 10.00(H) 1.70 - 6.10 x10(3)/mc L 07/30/2024 2:33 AM [facility] Lymph % 5.1 % 07/30/2024 2:33 AM [facility] Lymph Absolute 0.57(L) 0.90 - 3.20 x10(3)/mc L 07/30/2024 2:33 AM EST [facility] Monocyte % 5.4 % 07/30/2024 2:33 AM [facility] Monocyte Absolute 0.61 0.30 - 0.90 x10(3)/mc L 07/30/2024 2:33 AM [facility] Eos % 0.0 % 07/30/2024 2:33 AM [facility] Eos Absolute <0.04 0.00 - 0.40 x10(3)/mc L 07/30/2024 2:33 AM [facility] Basophil % 0.2 % 07/30/2024 2:33 AM [facility] Baso Absolute <0.04 0.00 - 0.10 x10(3)/mc L 07/30/2024 2:33 AM [facility] Immature Gran % 0.4 % 2:33 AM [facility] Immature Gran Absolute 0.05(H) 0.00 - 0.04 x10(3)/mc L 07/30/2024 2:33 AM [facility] Blood VENOUS BLOOD SPECIMEN / Unknown Venipuncture / Unknown 07/30/2024 2:11 AM EST 07/30/2024 2:22 AM EST Bridgette Stauffer MD HEMATOLOGY ORDERABLE S [facility] [address] * Magnesium (07/30/2024 2:11 AM EST) Magnesium 1.01 0.69 - 1.07 mMol/L 07/30/2024 2:51 AM [facility] Blood VENOUS BLOOD SPECIMEN / Unknown Venipuncture / Unknown 07/30/2024 2:11 AM EST 07/30/2024 2:22 AM EST Bridgette Stauffer MD CHEMISTRY ORDERABLES [facility] [place] [address] * (ABNORMAL) Basic Metabolic Panel (07/30/2024 2:11 AM EST) Glucose 190 65 - 199 mg/dL 07/30/2024 2:51 AM [facility] Comment:Glucose Concentratio n >=200 mg/dL plus symptoms is consistent with Diabetes Mellitus. Blood Urea Nitrogen 15 10 - 20 mg/dL 07/30/2024 2:51 AM [facility] Creatinine 0.88 0.80 - 1.50 mg/dL 07/30/2024 2:51 AM [facility] Sodium 135 135 - 145 mMol/L 07/30/2024 2:51 AM [facility] Potassium 4.9 3.5 - 5.0 mMol/L 07/30/2024 2:51 AM [facility] Chloride 105 98 - 107 mMol/L 07/30/2024 2:51 AM [facility] Carbon Dioxide 19(L) 22 - 31 mMol/L 07/30/2024 2:51 AM [facility] Anion Gap 11 5 - 15 mMol/L 07/30/2024 2:51 AM [facility] Calcium 7.7(L) 8.5 - 10.5 mg/dL 07/30/2024 2:51 AM [facility] Est Glomerular Filtration Rate - Male 91 mL/min/1. 73 m?? 07/30/2024 2:51 AM [facility] Comment: This patient's estimated GFR [...] Stauffer MD CHEMISTRY ORDERABLES Performing Organization Address City/[facility]/ZIP Co de Phone Number [facility] [place] [address] * (ABNORMAL) Cooximetry, POC (07/30/2024 1:00 AM EST) pO2, Coox 28 mmHg 07/30/2024 1:03 AM [facility] Hemoglobin, Coox 12.7(L) 13.7 - 16.5 g/dL 07/30/2024 1:03 AM EST [facility] Oxyhemoglobin, Coox 54.9 % 07/30/2024 1:03 AM [facility] Carboxyhemoglo bin, Coox 1.0 % 07/30/2024 1:03 AM EST [facility] Comment: Nonsmokers: 0.5-1.5% COHB ?? Smokers: Variable ??but usually less than 10% ?? Toxic: 20-30% COHB ?? Lethal: Greater than 60% COHB Methemoglobin, Coox 0.0 <=1.5 % 07/30/2024 1:03 AM EST [facility] Blood (Mixed Venous) 07/30/2024 1:00 AM EST 07/30/2024 1:03 AM EST Aubree Silverio MD POINT OF CARE TEST ORDERABLES Performing Organization Address [facility] Co de Phone Number [facility] [place] [address] * (ABNORMAL) Blood Gas, Arterial POC (07/30/2024 12:57 AM EST) pH, Arterial 7.38 7.35 - 7.45 07/30/2024 12:58 AM [facility] PCO2, Arterial 34(L) 35 - 45 mmHg 07/30/2024 12:58 AM [facility] PO2, Arterial 141(H) 85 - 104 mmHg 07/30/2024 12:58 AM [facility] Bicarbonate, Arterial 19.5(L) 20.0 - 26.0 mmol/L 07/30/2024 12:58 AM [facility] Base Excess, Arterial -5.6(L) -3.0 - 3.0 mmol/L 07/30/2024 12:58 AM [facility] Hemoglobin, Arterial 13.0(L) 13.7 - 16.5 g/dL 07/30/2024 12:58 AM [facility] Oxyhemoglobin, Arterial 98.4(H) 94.0 - 97.0 % 07/30/2024 12:58 AM [facility] Carboxyhemoglobin , Arterial 0.4 % 07/30/2024 12:58 AM [facility] Comment: Nonsmokers: 0.5-1.5% COHB ?? Smokers: Variable ??but usually less than 10% ?? Toxic: 20-30% COHB ?? Lethal: Greater than 60% COHB Methemoglobin, Arterial 0.1 <=1.5 % 07/30/2024 12:58 AM [facility] Sodium, Arterial 130(L) 135 - 145 mmol/L 07/30/2024 12:58 AM [facility] Potassium, Arterial 4.5 3.5 - 5.0 mmol/L 07/30/2024 12:58 AM [facility] Chloride, Arterial 104 98 - 107 mmol/L 07/30/2024 12:58 AM [facility] Lactate, Arterial 1.3 0.5 - 2.2 mmol/L 07/30/2024 12:58 AM [facility] Flow Rate 2.0 L/min 07/30/2024 12:58 AM EST [facility] IONIZED CALCIUM, ARTERIAL 1.12(L) 1.15 - 1.33 mmol/L 07/30/2024 12:58 AM EST [facility] Glucose, Arterial 184 65 - 199 mg/dL 07/30/2024 12:58 AM EST [facility] Comment:Glucose Concentratio n >=200 mg/dL plus symptoms is consistent with Diabetes Mellitus. Blood ARTERIAL BLOOD / Unknown 07/30/2024 12:57 AM EST 07/30/2024 12:58 AM EST Aubree Silverio MD POINT OF CARE TEST ORDERABLES [facility] [place] [address] * (ABNORMAL) Troponin - Single (07/29/2024 10:31 PM EST) Troponin-T, High Sensitivity >10,000(H ) <=22 ng/L 07/29/2024 11:03 PM EST [facility] [...] can be found in the [facility] Laboratory Test Catalog Troponin - https://[email or web address]-.testcatalog.org/catalogs/565/files/68070 Reference: Fourth [place] Definition of Myocardial Infarction. Journal of the [place] [employer] 2018;72:6527-1074 Blood VENOUS BLOOD SPECIMEN / Unknown Venipuncture / Unknown 07/29/2024 10:31 PM EST 07/29/2024 10:36 PM EST Yrn Velazquez MD CHEMISTRY ORDERABL ES Performing Organization Address City/[facility]/ZIP Co de Phone Number [facility] [place] [address] * Potassium (07/29/2024 8:11 PM EST) Potassium 4.1 3.5 - 5.0 mMol/L 07/29/2024 8:52 PM EST [facility] Blood VENOUS BLOOD SPECIMEN / Unknown Venipuncture / Unknown 07/29/2024 8:11 PM EST 07/29/2024 8:16 PM EST Aubree Silverio MD CHEMISTRY ORDERABL ES Performing Organization Address [facility]/ZIP Co de Phone Number [facility] [place] [address] * (ABNORMAL) Troponin - Single (07/29/2024 8:11 PM EST) Troponin-T, High Sensitivity >10,000(H ) <=22 ng/L 07/29/2024 8:52 PM EST [facility] [...] can be found in the [facility] Laboratory Test Catalog Troponin - https://[email or web address]-.testcatalog.org/catalogs/565/files/20632 Reference: Fourth [place] Definition of Myocardial Infarction. Journal of the [place] [employer] 2018;72:1259-5837 Blood VENOUS BLOOD SPECIMEN / Unknown Venipuncture / Unknown 07/29/2024 8:11 PM EST 07/29/2024 8:16 PM EST Aubree Silverio MD CHEMISTRY ORDERABL ES [facility] [place] [address] * (ABNORMAL) Phosphorus (07/29/2024 8:11 PM EST) Phosphorus 2.1(L) 2.5 - 4.5 mg/dL 07/29/2024 8:52 PM EST [facility] Blood VENOUS BLOOD SPECIMEN / Unknown Venipuncture / Unknown 07/29/2024 8:11 PM EST 07/29/2024 8:16 PM EST Aubree Silverio MD CHEMISTRY ORDERABL ES [facility] [place] [address] * POC, GLUCOSE (07/29/2024 8:09 PM EST) Glucometer, POC 142 65 - 199 mg/dL 07/29/2024 8:09 PM EST [facility] Comment:Supplemental ranges: <140 mg/dL before meals <180 mg/dL all other times of the day. Blood CAPILLARY BLOOD / Unknown 07/29/2024 8:09 PM EST 07/29/2024 8:09 PM EST Aubree Silverio MD POINT OF CARE TEST ORDERABLES Performing Organization Address City/[facility]/ZIP Co de Phone Number [facility] [place] [address] * ABORH RECHECK (07/29/2024 6:43 PM EST) Pathologist [facility] ABORH Recheck AB POSITIVE 07/29/2024 10:13 PM EST [facility] Blood VENOUS BLOOD SPECIMEN / Unknown Venipuncture / Unknown 07/29/2024 6:43 PM EST 07/29/2024 7:15 PM EST Aubree Silverio MD BLOOD BANK LAB ORD ERABLES Performing Organization Address City/[facility]/ZIP Co de Phone Number [facility] [place] [address] * POC, GLUCOSE (07/29/2024 5:57 PM EST) [facility] Glucometer, POC 166 65 - 199 mg/dL 07/29/2024 5:57 PM EST [facility] Comment:Supplemental ranges: <140 mg/dL before meals <180 mg/dL all other times of the day. Blood CAPILLARY BLOOD / Unknown 07/29/2024 5:57 PM EST 07/29/2024 5:57 PM EST Aubree Silverio MD POINT OF CARE TEST ORDERABLES Performing Organization Address City/[facility]/ZIP Co de Phone Number [facility] [place] [address] * Type and screen [place] (07/29/2024 5:56 PM EST) Pathologist [facility] ABORH Type AB POSITIVE 07/29/2024 9:44 PM EST [facility] PATIENT HISTORY Not Found 07/29/2024 9:44 PM EST [facility] Expires at [id number] on: 08/01/2024 07/29/2024 9:44 PM EST [facility] ANTIBODY SCREEN AUTOMATED Negative 07/29/2024 9:44 PM EST [facility] T&S only valid at [facility] 07/29/2024 9:44 PM EST [facility] Blood VENOUS BLOOD SPECIMEN / Unknown Venipuncture / Unknown 07/29/2024 5:56 PM EST 07/29/2024 6:07 PM EST Narrative [facility] - 07/29/2024 9:44 PM EST This Type and Screen result is only valid at the [facility] Aubree Silverio MD BLOOD BANK LAB ORD ERABLES [facility] [place] [address] * (ABNORMAL) Troponin - Single (07/29/2024 4:52 PM EST) [facility] Troponin-T, High Sensitivity >10,000(H ) <=22 ng/L 07/29/2024 5:25 PM EST [facility] [...] can be found in the [facility] Laboratory Test Catalog Troponin - [email or web address]/catalogs/565/files/29179 Reference: Fourth [place] Definition of Myocardial Infarction. Journal of the [place] [employer] 2018;72:2032-4822 Blood VENOUS BLOOD SPECIMEN / Unknown Venipuncture / Unknown 07/29/2024 4:52 PM EST 07/29/2024 4:57 PM EST Aubree Silverio MD CHEMISTRY ORDERABL ES Performing Organization Address City/[facility]/ZIP Co de Phone Number [facility] [place] [address] * EKG 12 Lead (07/29/2024 4:21 PM EST) Ventricular rate 72 BPM MUSE SYSTEM Atrial Rate 72 BPM MUSE SYSTEM P-R Interval 168 ms MUSE SYSTEM QRS Duration 82 ms MUSE SYSTEM Q-T Interval 392 ms MUSE SYSTEM QTC Calculated (Bezet) 429 ms MUSE SYSTEM Calculated P [place] 71 degrees MUSE SYSTEM Calculated R [place] 77 degrees MUSE SYSTEM Calculated T [place] 28 degrees MUSE SYSTEM INTERPRETATION Sinus rhythm [...] Silverio MD ECG ORDERABLES Performing Organization Address [facility]/ZIP Co de Phone Number MUSE SYSTEM * (ABNORMAL) Blood Gas, Arterial POC (07/29/2024 4:21 PM EST) pH, Arterial 7.37 7.35 - 7.45 07/29/2024 4:22 PM EST [facility] PCO2, Arterial 36 35 - 45 mmHg 07/29/2024 4:22 PM EST [facility] PO2, Arterial 71(L) 85 - 104 mmHg 07/29/2024 4:22 PM EST [facility] Bicarbonate, Arterial 20.4 20.0 - 26.0 mmol/L 07/29/2024 4:22 PM EST [facility] Base Excess, Arterial -4.8(L) -3.0 - 3.0 mmol/L 07/29/2024 4:22 PM [facility] Hemoglobin, Arterial 12.2(L) 13.7 - 16.5 g/dL 07/29/2024 4:22 PM [facility] Oxyhemoglobin, Arterial 93.8(L) 94.0 - 97.0 % 07/29/2024 4:22 PM [facility] Carboxyhemoglobin , Arterial 0.5 % 07/29/2024 4:22 PM [facility] Comment: Nonsmokers: 0.5-1.5% COHB ?? Smokers: Variable ??but usually less than 10% ?? Toxic: 20-30% COHB ?? Lethal: Greater than 60% COHB Methemoglobin, Arterial 0.3 <=1.5 % 07/29/2024 4:22 PM [facility] Sodium, Arterial 134(L) 135 - 145 mmol/L 07/29/2024 4:22 PM [facility] Potassium, Arterial 4.2 3.5 - 5.0 mmol/L 07/29/2024 4:22 PM [facility] Chloride, Arterial 107 98 - 107 mmol/L 07/29/2024 4:22 PM [facility] Lactate, Arterial 1.5 0.5 - 2.2 mmol/L 07/29/2024 4:22 PM [facility] Fraction of Inspired Oxygen 21 % 07/29/2024 4:22 PM [facility] PF Ratio 338 Ratio 07/29/2024 4:22 PM [facility] Comment:PF ratio calculated using the non-temperature corrected pO2 result. IONIZED CALCIUM, ARTERIAL 1.12(L) 1.15 - 1.33 mmol/L 07/29/2024 4:22 PM [facility] Glucose, Arterial 181 65 - 199 mg/dL 07/29/2024 4:22 PM [facility] Comment:Glucose Concentratio n >=200 mg/dL plus symptoms is consistent with Diabetes Mellitus. Blood ARTERIAL BLOOD / Unknown 07/29/2024 4:21 PM EST 07/29/2024 4:22 PM EST Aubree Silverio MD POINT OF CARE TEST ORDERABLES [facility] [place] [address] * POC, GLUCOSE (07/29/2024 4:19 PM EST) Glucometer, POC 185 65 - 199 mg/dL 07/29/2024 4:19 PM EST [facility] Comment:Supplemental ranges: <140 mg/dL before meals <180 mg/dL all other times of the day. Blood CAPILLARY BLOOD / Unknown 07/29/2024 4:19 PM EST 07/29/2024 4:19 PM EST Aubree Silverio MD POINT OF CARE TEST ORDERABLES Performing Organization Address City/[facility]/ZIP Co de Phone Number [facility] [place] [address] * Blood culture (07/29/2024 4:08 PM EST) Blood Culture No growth at 120 hours 08/03/2024 5:01 PM EST [facility] Blood VENOUS BLOOD SPECIMEN / Unknown Venipuncture / Unknown 07/29/2024 4:08 PM EST 07/29/2024 4:15 PM EST Aubree Silverio MD MICROBIOLOGY - BLO OD ORDERABLES Performing Organization Address City/[facility]/ZIP Co de Phone Number [facility] [address] * Blood culture (07/29/2024 4:08 PM EST) Blood Culture No growth at 120 hours 08/03/2024 5:01 PM EST [facility] Blood VENOUS BLOOD SPECIMEN / Unknown Venipuncture / Unknown 07/29/2024 4:08 PM EST 07/29/2024 4:26 PM EST Aubree Silverio MD MICROBIOLOGY - BLO OD ORDERABLES [facility] [place] [address] * XR Chest One [place] (07/29/2024 2:30 PM EST) WORKSTATION ID [id number] RAD Anatomical Region Laterality Modality Chest N/A [...] have questions please contact the health rn acute care that requested your imaging first. ? Electronically signed by: Chris Candelaria MD, [facility] ([phone]), at 07/29/2024 3:21 PM Narrative 07/29/2024 3:21 [...] who have questions please contactthe health rn acute care that requested your imaging first. Electronically signed by: Chris Candelaria MD, [facility]([phone]), at 07/29/2024 3:21 PM Vahe Marvin MD IMG DX ORDERABLES * (ABNORMAL) APTT (07/29/2024 2:03 PM EST) Pathologist [facility] Partial Thromboplastin Time >160(HHH) 25 - 37 sec 07/29/2024 2:56 PM EST [facility] Blood VENOUS BLOOD SPECIMEN / Unknown Venipuncture / Unknown 07/29/2024 2:03 PM EST 07/29/2024 2:13 PM EST Vahe Marvin MD HEMATOLOGY ORDERABLE S [facility] [place] [address] * (ABNORMAL) Prothrombin Time (07/29/2024 2:03 PM [...] MD HEMATOLOGY ORDERABLE S Performing Organization Address City/[facility]/ZIP Co de Phone Number [facility] [place] [address] * CRP, acute inflammation (07/29/2024 2:03 PM EST) C-Reactive Protein <3.0 <=4.9 mg/L 07/29/2024 2:52 PM EST [facility] Blood VENOUS BLOOD SPECIMEN / Unknown Venipuncture / Unknown 07/29/2024 2:03 PM EST 07/29/2024 2:14 PM EST Vahe Marvin MD CHEMISTRY ORDERABLES Performing Organization Address City/[facility]/ZIP Co de Phone Number [facility] [place] [address] * Lipid Panel (Reflex Direct LDL) (07/29/2024 2:03 PM EST) Cholesterol, Total 133 mg/dL 07/29/2024 2:52 PM EST [facility] Comment: Desirable: < 200 mg/dL Borderline High: 200 - 239 mg/dL High: > or = 240 mg/dL Triglyceride 45 mg/dL 07/29/2024 2:52 PM EST [facility] Comment: Normal: <150 mg/dL Borderline High: 150-199 mg/dL High: 200-499 mg/dL Very High: > or =500 mg/dL HDL Cholesterol 58 mg/dL 2:52 PM [facility] Comment:Males: High Risk: <4 0 mg/dL LDL Cholesterol 64 mg/dL 2:52 PM [facility] Comment: Desirable: <100 mg/dL Above Desirable: 100-129 mg/dL Borderline High: 130-159 mg/dL High: 160-189 mg/dL Very High: > or =190 mg/dL Note: LDL calculation updated to the NIH LDL formula as of 04/15/2024 Non-HDL Cholesterol 75 mg/dL 07/29/2024 2:52 PM [facility] Comment: Desirable: <130 mg/dL Above Desirable: 130-159 mg/dL Borderline High: 160-189 mg/dL High: 190-219 mg/dL Very High: > or = 220 mg/dL Blood VENOUS BLOOD SPECIMEN / Unknown Venipuncture / Unknown 07/29/2024 2:03 PM EST 07/29/2024 2:14 PM EST [facility] - 07/29/2024 2:52 PM [...] Marvin MD CHEMISTRY ORDERABLES Performing Organization Address City/[facility]/ZIP Co de Phone Number [facility] [place] [address] * TSH [place] (07/29/2024 2:03 PM EST) [facility] Thyroid Stimulating Hormone 0.70 0.27 - 4.20 mcIU/mL 07/29/2024 2:52 PM EST [facility] Blood VENOUS BLOOD SPECIMEN / Unknown Venipuncture / Unknown 07/29/2024 2:03 PM EST 07/29/2024 2:14 PM EST Vahe Marvin MD CHEMISTRY ORDERABLES Performing Organization Address [facility]/ZIP Co de Phone Number [facility] [place] [address] * Hemoglobin A1c (07/29/2024 2:03 PM EST) [facility] Hemoglobin A1c 5.3 4.3 - 5.6 [...] 2:03 PM EST 07/29/2024 2:14 PM EST [facility] - 07/29/2024 2:41 PM EST Estimated average glucose (eAG) is calculated from the equation described in: Quinten ALVES, Rikki J, [place] R, et al. ??Translating the A1C assay into estimated average glucose values. ??Diabetes Care 2008:31(8):8070-1645. Additional resources are available on the ADA website (diabetes.org). Vahe Marvin MD CHEMISTRY ORDERABLES [facility] [place] [address] * (ABNORMAL) CBC (with Diff) (07/29/2024 2:03 PM EST) White Blood Cell 19.50(H) 4.00 - 9.50 x10(3)/mc L 07/29/2024 2:18 PM EST [facility] Red Blood Cell 4.81 4.58 - 5.54 x10(6)/mc L 07/29/2024 2:18 PM [facility] Hemoglobin 13.1(L) 13.7 - 16.5 g/dL 07/29/2024 2:18 PM [facility] Hematocrit 40.1(L) 40.5 - 48.5 % 07/29/2024 2:18 PM [facility] Mean Cell Volume 83.4 82.9 - 93.1 fL 07/29/2024 2:18 PM [facility] Mean Cell Hemoglobin 27.2(L) 27.5 - 32.1 pg 07/29/2024 2:18 PM [facility] Mean Cell Hemoglobin Concentration 32.7 32.0 - 35.7 g/dL 07/29/2024 2:18 PM [facility] Platelet 236 145 - 357 x10(3)/mc L 07/29/2024 2:18 PM [facility] Mean Platelet Volume 10.6 7.6 - 12.9 fL 07/29/2024 2:18 PM [facility] RDW Standard Deviation 43.7 36.0 - 45.0 fL 07/29/2024 2:18 PM [facility] RDW coefficient of variation 14.3(H) 11.4 - 13.8 % 07/29/2024 2:18 PM [facility] NRBC% auto 0.0 % 07/29/2024 2:18 PM [facility] NRBC Absolute <0.01 <0.01 x10(3)/mc L 07/29/2024 2:18 PM [facility] Neutrophil % 93.6 % 07/29/2024 2:18 PM [facility] Neutrophil Absolute (ANC) - Automated 18.28(H) 1.70 - 6.10 x10(3)/mc L 07/29/2024 2:18 PM [facility] Lymph % 2.7 % 07/29/2024 2:18 PM [facility] Lymph Absolute 0.52(L) 0.90 - 3.20 x10(3)/mc L 07/29/2024 2:18 PM EST [facility] Monocyte % 2.9 % 07/29/2024 2:18 PM EST [facility] Monocyte Absolute 0.56 0.30 - 0.90 x10(3)/mc L 07/29/2024 2:18 PM EST [facility] Eos % 0.0 % 07/29/2024 2:18 PM EST [facility] Eos Absolute <0.04 0.00 - 0.40 x10(3)/mc L 07/29/2024 2:18 PM EST [facility] Basophil % 0.3 % 07/29/2024 2:18 PM [facility] Baso Absolute 0.05 0.00 - 0.10 x10(3)/mc L 07/29/2024 2:18 PM EST [facility] Immature Gran % 0.5 % 2:18 PM [facility] Immature Gran Absolute 0.09(H) 0.00 - 0.04 x10(3)/mc L 07/29/2024 2:18 PM EST [facility] Blood VENOUS BLOOD SPECIMEN / Unknown Venipuncture / Unknown 07/29/2024 2:03 PM EST 07/29/2024 2:13 PM EST Vahe Marvin MD HEMATOLOGY ORDERABLE S Performing Organization Address City/State/[facility] Co de Phone Number [facility] [place] [place] [address] * Phosphorus (07/29/2024 2:03 PM EST) Phosphorus 2.5 2.5 - 4.5 mg/dL 07/29/2024 2:52 PM EST [facility] Blood VENOUS BLOOD SPECIMEN / Unknown Venipuncture / Unknown 07/29/2024 2:03 PM EST 07/29/2024 2:14 PM EST Vahe Marvin MD CHEMISTRY ORDERABLES [facility] [place] [address] * Magnesium (07/29/2024 2:03 PM EST) Pathologist [facility] Magnesium 0.70 0.69 - 1.07 mMol/L 07/29/2024 2:52 PM EST [facility] Blood VENOUS BLOOD SPECIMEN / Unknown Venipuncture / Unknown 07/29/2024 2:03 PM EST 07/29/2024 2:14 PM EST Vahe Marvin MD CHEMISTRY ORDERABLES Performing Organization Address City/[facility]/ZIP Co de Phone Number [facility] [place] [address] * (ABNORMAL) Comprehensive metabolic panel (07/29/2024 2:03 PM EST) Pathologist [facility] Glucose 243(H) 65 - 199 mg/dL 07/29/2024 3:11 PM [facility] Comment:Glucose Concentratio n >=200 mg/dL plus symptoms is consistent with Diabetes Mellitus. Blood Urea Nitrogen 13 10 - 20 mg/dL 07/29/2024 3:11 PM [facility] Creatinine 0.88 0.80 - 1.50 mg/dL 07/29/2024 3:11 PM [facility] Sodium 138 135 - 145 mMol/L 07/29/2024 3:11 PM [facility] Potassium 3.6 3.5 - 5.0 mMol/L 07/29/2024 3:11 PM [facility] Chloride 104 98 - 107 mMol/L 07/29/2024 3:11 PM [facility] Carbon Dioxide 19(L) 22 - 31 mMol/L 07/29/2024 3:11 PM [facility] Anion Gap 15 5 - 15 mMol/L 07/29/2024 3:11 PM [facility] Calcium 8.0(L) 8.5 - 10.5 mg/dL 07/29/2024 3:11 PM EST [facility] Protein, Total 6.0(L) 6.1 - 8.0 g/dL 07/29/2024 3:11 PM [facility] Albumin 3.6 3.2 - 5.2 g/dL 07/29/2024 3:11 PM [facility] Aspartate Aminotransferase 07/29/2024 3:11 PM [facility] Comment:Unable to report due to hemolysis. Alanine Aminotransferase 56(H) 0 - 55 unit/L 07/29/2024 3:11 PM [facility] Alkaline Phosphatase 58 40 - 130 unit/L 07/29/2024 3:11 PM [facility] Bilirubin, Total 0.5 <=1.3 mg/dL 07/29/2024 3:11 PM [facility] Est Glomerular Filtration Rate - Male 91 mL/min/1. 73 m?? 07/29/2024 3:11 PM [facility] Comment: This patient's estimated GFR [...] CHEMISTRY ORDERABLES [facility] [place] [place] [address] * (ABNORMAL) Troponin - Single (07/29/2024 2:03 PM EST) [facility] Troponin-T, High Sensitivity >10,000(H ) <=22 ng/L 07/29/2024 2:52 PM EST [facility] [...] can be found in the [facility] Laboratory Test Catalog Troponin - [email or web address]/catalogs/565/[email or web address]/[email or web address] Reference: Fourth [place] Definition of Myocardial Infarction. Journal of the [place] College of Cardiology 2018;72:9356-6894 Blood VENOUS BLOOD SPECIMEN / Unknown Venipuncture / Unknown 07/29/2024 2:03 PM EST 07/29/2024 2:14 PM EST Vahe Marvin MD CHEMISTRY ORDERABLES [facility] [place] [place] [address] * (ABNORMAL) Blood Gas, Venous POC (07/29/2024 2:01 PM EST) [facility] pH, Venous 7.30(L) 7.32 - 7.42 07/29/2024 2:02 PM EST [facility] PCO2, Venous 42 38 - 58 mmHg 07/29/2024 2:02 PM EST [facility] PO2, Venous 39 16 - 65 mmHg 07/29/2024 2:02 PM [facility] Bicarbonate, Venous 20.1(L) 22 - 31 mmol/L 07/29/2024 2:02 PM [facility] Base Excess, Venous -6.4(L) 1.9 - 4.5 mmol/L 07/29/2024 2:02 PM [facility] Hemoglobin, Venous 14.2 13.7 - 16.5 g/dL 07/29/2024 2:02 PM [facility] Oxyhemoglobin, Venous 69.3 % 07/29/2024 2:02 PM [facility] Carboxyhemoglobin , Venous 0.8 % 07/29/2024 2:02 PM [facility] Comment: Nonsmokers: 0.5-1.5% COHB ?? Smokers: Variable ??but usually less than 10% ?? Toxic: 20-30% COHB ?? Lethal: Greater than 60% COHB Methemoglobin, Venous 0.3 <=1.5 % 07/29/2024 2:02 PM [facility] Sodium, Venous 137 135 - 145 mmol/L 07/29/2024 2:02 PM [facility] Potassium, Venous 3.6 3.5 - 5.0 mmol/L 07/29/2024 2:02 PM [facility] Chloride, Venous 103 98 - 107 mmol/L 07/29/2024 2:02 PM [facility] Glucose, Venous 229(H) 65 - 199 mg/dL 07/29/2024 2:02 PM [facility] Comment:Glucose Concentratio n >=200 mg/dL plus symptoms is consistent with Diabetes Mellitus. Lactate, Venous 3.1(H) 0.5 - 2.2 mmol/L 07/29/2024 2:02 PM [facility] Ionized Calcium, Venous 1.11(L) 1.15 - 1.33 mmol/L 07/29/2024 2:02 PM [facility] Blood VENOUS BLOOD SPECIMEN / Unknown 07/29/2024 2:01 PM EST 07/29/2024 2:02 PM EST Vahe Marvin MD POINT OF CARE TEST O RDERABLES Performing Organization Address [facility]/State/ZIP Co de Phone Number [facility] [place] [address] * CARDIAC CATHETERIZATION (07/29/2024 1:20 PM EST) Anatomical Region Laterality Modality Other Narrative 07/29/2024 2:02 PM EST ?[facility] ? Cardiac Catheterization/Intervention Report ? Patient Name: Korey Montoya Kyrie. ? Procedure Date: 07/29/2024 ? A #: [id number] ? Primary Physician: Vahe Marvin ? Case #: [id number] ? File Name: [id number] ? Catheterization Order Number: [id number] ? [facility] ? Final Report [place], [place] ? Patient Name: ? Korey Montoya ?ID#: ?[id number] ? : ?1950 ? Procedure Date: ? [...] procedure was Emergent. The indication for ?the brine room laborer visit is ACS less than or [...] 3.5 guiding catheter and a 3.5 Fr [place] Eye [place] [address] ??20 Mhz using ?Manual pullback. ??Imaging [...] ? A premounted 3.00 x 22 mm [place] Dimmit (LOW) was deployed ? with a maximum [...] atmospheres. ??A premounted 3.00 x 08 mm [place] Dimmit (LOW) ? was deployed with a maximum [...] dose administered prior to arrival in the brine room laborer. ?Recommended anti-platelet/anti-thrombotic regimen: ?Start aspirin 81 mg daily now and continue for 12 months then stop. ?Start clopidogrel 75 mg daily now and continue for indefinitely. ?These recommendations are made at the time of the intervention. Patient ?and provider preferences or a changing clinical situation may require ?modification of this regimen. Consult [facility] for ?questions. ?The 1 year [...] able ?to start weaning his inotropes/vasopressors. A [place] Colette catheter was ?placed demonstrating improvement in [...] ventricular assist device insertion, right heart ?catheterization, [place] Brooks (flow directed cath) insertion, access site ?angiography, vascular ultrasound, venous line / sheath insert and vascular ?closure device. ? Vahe S Shavonne, M.D. ? Electronically Signed by: Vahe Cobosstein, M.D. ? Report Finalized: 07/29/2024 ??13:55 ? Report Last Ammended: 07/30/2024 ??10:15 ? Procedure Note Vahe Marvin MD - 07/30/2024 [facility] Cardiac Catheterization/Intervention Report Patient Name: Korey Montoya Procedure Date: 07/29/2024 A #: [id number] Primary Physician: Vahe Marvin Case #: [id number] File Name: [id number] Catheterization Order Number: [id number] [facility] FinalReport [place], [place] Patient Name: Korey Montoya ID#:[id number] :1950 Procedure Date: July 29, 2024 Case [...] was designated as ASA Class IV. [facility] 4: Vulnerable. Diagnostic Tests: Electrocardiography: EKG was assessed by ECG. EKG was Abnormal. EKG showed STDeviation >= 0.5 mm. Medications Prior to Procedure: Angiotensin II Receptor Elvis and Statin. Indications for Diagnostic Cath: The priority of the diagnostic procedure was Emergent. Theindication for the brine room laborer visit is ACS less than or [...] 3.5 guiding catheter and a 3.5 Fr [place] [address] [place] [address] 20 Mhzusing Manual pullback. Imaging was [...] priority for the procedure was Emergent.The [facility] indication for the procedure was [...] The lesion was predilated with a 2.00mm [id number] MM balloon with a maximum inflation pressure of 12atmospheres. A premounted 3.00 x 22 mm [place] Dimmit (LOW) wasdeployed with a maximum inflation pressure [...] atmospheres. A premounted 3.00 x 08 mm [place] Dimmit(LOW) was deployed with a maximum inflation pressure [...] dose administered prior to arrival in the brine room laborer. Recommended anti-platelet/anti-thrombotic regimen: Start aspirin 81 mg daily now and continue for 12 months then stop. Start clopidogrel 75 mg daily now and continue for indefinitely. These recommendations are made at the time of the intervention.Patient and provider preferences or a changing clinical situation mayrequire modification of this regimen. Consult [facility] Cardiologyfor questions. The 1 year bleeding [...] wereable to start weaning his inotropes/vasopressors. A [place] Colette catheterwas placed demonstrating improvement in his [...] ventricular assist device insertion, right heart catheterization, [place] (flow directed cath) insertion, access site angiography, vascular ultrasound, venous line / sheath insert andvascular closure device. Vahe Marvin M.D. Electronically Signed by: Vahe Marvin M.D. Report Finalized: 07/29/2024 13:55 Report Last Ammended: 07/30/2024 10:15 Vahe Marvin MD CARDIAC CATH ORDERAB LES * (ABNORMAL) BLOOD GAS, POC (07/29/2024 12:46 PM EST) Sodium, POC 139 135 - 145 mmol/L 07/30/2024 7:30 AM [facility] Potassium, POC 3.4(L) 3.5 - 5.0 mmol/L 07/30/2024 7:30 AM [facility] pH, POC 7.33(L) 7.35 - 7.45 07/30/2024 7:30 AM [facility] Ionized Calcium, POC 1.13(L) 1.15 - 1.33 mmol/L 07/30/2024 7:30 AM [facility] pCO2, POC 38 35 - 45 mmHg 07/30/2024 7:30 AM [facility] pO2, POC 94 85 - 104 mmHg 07/30/2024 7:30 AM [facility] Base Excess, POC -6.0(L) -3.0 - 3.0 mmol/L 07/30/2024 7:30 AM [facility] Hematocrit, POC 39.0(L) 40.5 - 48.5 %PCV 07/30/2024 7:30 AM [facility] Hemoglobin, POC 13.3(L) 13.7 - 16.5 g/dL 07/30/2024 7:30 AM [facility] Comment:The calculation of h emoglobin from hematocrit assumes a normal MCHC. Bicarbonate, POC 19.8(L) 20.0 - 26.0 mmol/L 07/30/2024 7:30 AM [facility] Carbon Dioxide, POC 21(L) 22 - 31 mmol/L 07/30/2024 7:30 AM [facility] Blood VENOUS BLOOD SPECIMEN / Unknown 07/29/2024 12:46 PM EST 07/30/2024 7:30 AM EST Vahe Marvin MD POINT OF CARE TEST O RDERABLES [facility] [place] [address] * (ABNORMAL) BLOOD GAS, POC (07/29/2024 12:12 PM EST) Sodium, POC 135 135 - 145 mmol/L 07/30/2024 7:30 AM [facility] Potassium, POC 3.8 3.5 - 5.0 mmol/L 07/30/2024 7:30 AM [facility] pH, POC 7.27(LLL) 7.35 - 7.45 07/30/2024 7:30 AM [facility] Ionized Calcium, POC 1.14(L) 1.15 - 1.33 mmol/L 07/30/2024 7:30 AM [facility] pCO2, POC 43 35 - 45 mmHg 07/30/2024 7:30 AM [facility] pO2, POC 131(H) 85 - 104 mmHg 07/30/2024 7:30 AM [facility] Base Excess, POC -7.0(L) -3.0 - 3.0 mmol/L 07/30/2024 7:30 AM [facility] Hematocrit, POC 36.0(L) 40.5 - 48.5 %PCV 07/30/2024 7:30 AM [facility] Hemoglobin, POC 12.2(L) 13.7 - 16.5 g/dL 07/30/2024 7:30 AM [facility] Comment:The calculation of h emoglobin from hematocrit assumes a normal MCHC. Bicarbonate, POC 19.7(L) 20.0 - 26.0 mmol/L 07/30/2024 7:30 AM [facility] Carbon Dioxide, POC 21(L) 22 - 31 mmol/L 07/30/2024 7:30 AM [facility] Blood VENOUS BLOOD SPECIMEN / Unknown 07/29/2024 12:12 PM EST 07/30/2024 7:30 AM EST Vahe Marvin MD POINT OF CARE TEST O RDERABLES Performing Organization Address City/State/[facility] Co de Phone Number [facility] [place] [address] documented in this encounter Visit Diagnoses Not [...] Minutes 0847 (New Bag - Provider: Parvin Struass RN)1047 (Stopped - Provider: Parvin Strauss RN) [...] Routine documented in this encounter Care Teams Show Host Relationship Specialty Start Date End Date Yoel Artis APRN [address] [place] [address] PCP - General Internal Medicine 11/18/22 07/29/24 documented as of this encounter
--- OUTSIDE RECORDS SUMMARY | 2024-08-31 10:10 | XMS_ITS | Encounter Summary ---
[place] [address] Care Team Providers Care Knockup Worker Name Role Phone Yoel Artis FRDERICK Primary Care Provider [phone] Encounter Details Date Type Department Care Team (Late st Contact Info) Description 01/16/2024 Interpretation Only [facility] [address] [place] [address] Chaparro Montana MD [address] [place] [address] Social History Tobacco Use Types Packs/Day Years [...] AM EST Office Visit Cardiology at [address] [address] Mushtaq Murphy APRN documented as of this encounter Procedures Procedure Name Priority Date/Time Associated Diagnosis Comments CT HEAD WO CONTRAST (GENERIC) STAT 01/16/2024 4:17 PM EDT documented in this encounter Results * CT Head wo Contrast (Generic) (01/16/2024 4:17 PM EDT) PT CLASS E RAD ADMITDTTM [id number] RAD PT RAD INFO [id number]^Haniss henry^Chaparro RAD EXAM DESC CTHEAD^CT Head w/o Contrast^RIS [facility] WORKSTATION ID RADDRIMAGE [facility] Anatomical Region Laterality Modality Head Computed Tomogra phy 01/16/2024 4:03 PM EDT Impressions 01/16/2024 4:25 PM EDT No acute intracranial pathology. Thank you for letting us participate in the care of this patient. ??If you are a health care provider and have any questions regarding this report, please contact the number below. ??For patients who have questions please contact the health care provider that requested your imaging first. ? Electronically signed by: Alejandro Tenorio MD, Radiology [place] ([phone]), at 01/16/2024 4:25 PM Narrative 01/16/2024 4:25 PM EDT EXAMINATION: CT [...] who have questions please contactthe health care provider that requested your imaging first. Electronically signed by: Alejandro Tenorio MD, [facility]([phone]), at 01/16/2024 4:25 PM Chaparro Montana MD IMG CT ORDERABLES documented in this encounter Visit Diagnoses Not on filedocumented in this encounter Care Teams Knockup Worker Relationship Specialty Start Date End Date Yoel Artis APRN [address] [place] [address] PCP - General Internal Medicine 11/18/22 07/29/24 documented as of this encounter
--- OUTSIDE RECORDS SUMMARY | 2024-08-31 10:10 | XMS_ITS | Encounter Summary ---
Author Organization [facility] [place] [address] Care Team Providers Care Construction Framer Name Role Phone Yoel Artis Ute ALCALA Primary Care Provider Encounter Details Date Type Department Care Team (Late st Contact Info) Description 01/16/2024 5:46 PM EDT - 01/16/2024 11:59 PM EDT Hospital Encounter [facility] [address] [place] [address] Chaparro Montana MD [address] [place] [address] Discharge Disposition: Home Social History Tobacco Use [...] evening. 04/17/2023 08/04/2024 nitroGLYcerin (NITROLINGUAL) 400 mcg/spray [place], Non-AerosolIndications:P roctalgia fugax,Fecal smearing,Constipation, unspecified constipation type 1 spray to anus for proctalgia fugax as needed, not to exceed once daily 12 g 06/01/2023 08/04/2024 documented as of this encounter Plan of Treatment Upcoming Encounters Date Type Department Care Team (Late st Contact Info) Description 10/01/2024 10:00 AM EST Office Visit Cardiology at [address] [address] Mushtaq Murphy APRN documented as of this encounter Procedures Procedure Name Priority Date/Time Associated Diagnosis Comments URINE CULTURE Routine 01/16/2024 4:00 PM EDT documented in this encounter Results * Urine culture (01/16/2024 4:00 PM EDT) Urine Culture No growth (Less than 1,000 cfu/ml). [facility] Urine 01/16/2024 4:00 PM EDT 01/16/2024 10:36 PM EDT Narrative Resulting Agency Comment Spec In Lab Chaparro Montana MD [facility]BIOLOGY - [facility] ORDERABLES [facility] [place] [address] documented in this encounter Visit Diagnoses Not on filedocumented in this encounter Care Teams Construction Framer Relationship Specialty Start Date End Date Yoel Artis APRN [address] [place] [address] PCP - General Internal Medicine 11/18/22 07/29/24 documented as of this encounter
--- OUTSIDE RECORDS SUMMARY | 2024-08-31 10:10 | XMS_ITS | Encounter Summary ---
[place] [address] Care Team Providers Care Financial Engineer Name Role Phone Yoel Artis Ute ALCALA Primary Care Provider [phone] Encounter Details Date Type Department Care Team (Late st Contact Info) Description 08/26/2023 Telephone [place] [phone] Madelyn Vasquez Social History Tobacco Use Types [...] - 08/26/2023 9:23 AM EST Korey Montoya [id number] Diagnosis/Indication: Rectal pain, fecal smearing Please review [...] ever had a/an Colonoscopy before? Yes: Date [id number] ago [facility] If yes, did you have any problems [...] procedure? No You must have a responsible republican who will drive you to your procedure, stay on campus for the entire duration of your procedure, and drive you home from your procedure. Who will likely be your taxi cab driver for the procedure? Please Verify the [...] 10:00 AM EST Office Visit Cardiology at [address] [address] Mushtaq Murphy APRN documented as of this encounter Visit Diagnoses Not on filedocumented in this encounter Care Teams Financial Engineer Relationship Specialty Start Date End Date Yoel Artis APRN [address] [place] [address] PCP - General Internal Medicine 11/18/22 07/29/24 documented as of this encounter
--- OUTSIDE RECORDS SUMMARY | 2024-08-31 10:10 | XMS_ITS | Encounter Summary ---
[place] [address] Care Team Providers Care Mortgage Loan Assistant Name Role Phone Alexia Mtz COAL CRUSHER OPERATOR Primary Care Provider [phone] Encounter Details Date Type Department Care Team (Late st Contact Info) Description 07/29/2024 External [place] [phone] Social History Tobacco Use Types Packs/Day Years Used Date Smoking Tobacco: Former Cigarettes Smokeless Tobacco: Never Alcohol Use Standard Drinks/Week Comments Not Currently 0 (1 standard drink = 0.6 oz pur e alcohol) [facility] Utilities Answer Date Recorded In the [...] were you homeless or living in a fdc (including now)? No 07/30/2024 IPV Inpatient Questions [...] AM EST Office Visit Cardiology at [address] [address] Mushtaq Murphy APRN documented as of this encounter Procedures Procedure Name Priority Date/Time Associated Diagnosis Comments MISC EXTERNAL CARDIOLOGY RESULT Routine 07/29/2024 10:13 AM EST documented in this encounter Results * External Cardiology Result (07/29/2024 10:13 AM EST) Anatomical Region Laterality Modality Other Historical Provider EXTERNAL CARDIOLO GY RESULT documented in this encounter Visit Diagnoses Not on filedocumented in this encounter Care Teams Mortgage Loan Assistant Relationship Specialty Start Date End Date Alexia Mtz APRN [address] [place] [address] PCP - General Family Medicine 07/30/24 documented as of this encounter
--- OUTSIDE RECORDS SUMMARY | 2024-08-31 10:10 | XMS_ITS | Encounter Summary ---
Author Organization [facility] Address [facility] [place] [address] Care Team Providers Care Associate Programmer Name Role Phone Unknown Primary Care Provider Unavailabl e Encounter Details Date Type Department Care Team (Late st Contact Info) Description 01/13/2019 9:05 PM EDT Ancillary Procedure Radiology Library at [facility] [place] [phone] Sunny Aviles MD [facility] [place] [address] Social History Tobacco Use Types Packs/Day Years [...] 10:00 AM EST Office Visit Cardiology at [address] [place] [phone] Mushtaq Murphy, NATURAL SCIENCE MANAGER documented as of this encounter Procedures Procedure [...] Aviles MD IMG FILM LIBRARY ORDERABLES DERICK [place] documented in this encounter Visit Diagnoses Not on filedocumented in this encounter Care Teams Associate Programmer Relationship Specialty Start Date End Date Unknown None PCP - General 08/04/10 01/16/19 documented as of this encounter
--- OUTSIDE RECORDS SUMMARY | 2024-08-31 10:10 | XMS_ITS | Encounter Summary ---
Author Organization [facility] [place] [address] Care Team Providers Care Sheeter Machine Operator Name Role Phone Alexia Mtz FINANCIAL INVESTMENT ADVISER Primary Care Provider [phone] Encounter Details Date Type Department Care Team (Late st Contact Info) Description 04/23/2024 Lab [place] [address] Alexia Mtz, FINANCIAL INVESTMENT ADVISER [address] [place], [place] [id number] Elevated prostate specific antigen (PSA) Social History [...] 10:00 AM EST Office Visit Cardiology at [address] [address] Mushtaq Murphy APRN documented as [...] Comment:This result was gene rated using a Concert Window Osiel immunoassay. Results obtained from other methods or manufacturers cannot be used interchangeably with this method. 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
--- OUTSIDE RECORDS SUMMARY | 2024-08-31 10:10 | XMS_ITS | Encounter Summary ---
[place] [address] Care Team Providers Care Sheet Metal Assembler Name Role Phone Yoel Artis FREDRICK Primary Care Provider [phone] Encounter Details Date Type Department Care Team (Late st Contact Info) Description 01/16/2024 Interpretation Only [facility] [address] [place] [address] Chaparro Montana MD [address] [place] [address] Social History Tobacco Use Types Packs/Day Years [...] 10:00 AM EST Office Visit Cardiology at [address] [address] Mushtaq Murphy APRN documented as of this encounter Procedures Procedure Name Priority Date/Time Associated Diagnosis Comments XR CHEST ONE VIEW STAT 01/16/2024 4:0 4 PM EDT documented in this encounter Results * XR Chest One View (01/16/2024 4:04 PM EDT) PT CLASS E RAD ADMITDTTM [id number] [facility] PT RAD INFO [id number]^Jordy henry^Chaparro RAD EXAM DESC XCXR1^XR Chest 1 View^RIS [facility] WORKSTATION ID [id number] [facility] Anatomical Region Laterality Modality Chest N/A Radiographic Farida ging 01/16/2024 4:04 PM EDT Impressions 01/16/2024 4:08 PM EDT No active cardiopulmonary disease. Thank you for letting us participate in the care of this patient. ??If you are a health care provider and have any questions regarding this report, please contact the number below. ??For patients who have questions please contact the health hiv/aids care nurse that requested your imaging first. [...] patients who have questions please contactthe health hiv/aids care nurse that requested your imaging first. Chaparro Montana MD IMG DX ORDERABLES documented in this encounter Visit Diagnoses Not on filedocumented in this encounter Care Teams Sheet Metal Assembler Relationship Specialty Start Date End Date Yoel Artis APRN [address] [place] [address] PCP - General Internal Medicine 11/18/22 07/29/24 documented as of this encounter
--- OUTSIDE RECORDS SUMMARY | 2024-08-31 10:10 | XMS_ITS | Encounter Summary ---
Author Organization [facility] [place] [address] Care Team Providers Care Radio Frequency Technician Name Role Phone Yoel Artis Ute ALCALA Primary Care Provider [phone] Reason for Visit * Auth/Cert (Routine) Specialty Diagnoses / Procedures Referred By Conteleazar t Referred To Contact Diagnoses Anal spasm Fecal smearing Constipation, unspecified Rectal pain, fecal smearing Procedures PRO COLONOSCOPY, DIAGNOSTIC PRO COLONOSCOPY, BIOPSY PRO COLONOSCOPY, REMV LESN, SNARE COLONOSCOPY, DIAGNOSTIC (WRVU 3.26) Brandan Mcgovern MD [facility] [place] [address] [facility] Referral ID Status Reason Start Date Expiration Date Visits Re quested Visits Authorized [id number] 1 1 Encounter Details Date Type Department Care Team (Late st Contact Info) Description 08/30/2023 11:00 AM EST - 08/30/2023 12:00 PM EST [place] [address] Brandan Mcgovern MD [facility] [place] [address] COLONOSCOPY, POLYPECTOMY, REMOVAL LESION BY SNARE (WRVU [...] occurs, please contact your Doctor. Please call [phone] before 8pm Mon-Fri with problems, questions or concerns. If you call after 8pm or on weekends, call the Hospital at [phone] and ask to speak to the Chemistry Technical Officer middle school professional and the hay stacker operator will contact that person for you. When should you call for help? Call [phone] anytime you think you may need emergency [...] learn more? [facility] View your After Visit Summary and more online at [email or web address] If you would like to provide feedback about your hospital experience, please call the Office of Patient and Family Relations at . If you have received this After Visit Summary in error, please immediately return it in person to the department, or notify the [facility] Privacy Office by calling toll free at between the hours of 8AM and 5PM to arrange for our retrieval of the documents at no cost to you. Content Version: 12.2 ?? 6942-2551 [employer]. Care instructions adapted under license by [facility]. If you have questions about a medical condition or this instruction, always ask your healthcare professional. [employer] disclaims any warranty or liability for your [...] evening. 04/17/2023 08/04/2024 nitroGLYcerin (NITROLINGUAL) 400 mcg/spray [place], Non-AerosolIndications:P roctalgia fugax,Fecal smearing,Constipation, unspecified constipation type [...] AM EST Office Visit Cardiology at [address] [address] Mushtaq Murphy APRN documented as of this encounter Procedures Procedure Name Priority Date/Time Associated Diagnosis Comments SPECIMEN TO PATHOLOGY Routine 08/30/2023 11:23 AM EST SURGICAL PATHOLOGY REPORT Routine 08/30/2023 11:21 AM EST COLONOSCOPY Routine 08/30/2023 10:57 AM EST Colonoscopy, Remv Lesn, Snare ([id number]) 08/30/2023 10:44 AM EST Proctalgia fugax Fecal smearing Constipation, unspecified constipation type documented in this encounter Results * Specimen to Pathology (08/30/2023 11:23 AM EST) AP Specimen 08/30/2023 11:2 3 AM EST 08/30/2023 11:23 AM EST Narrative [facility] - 08/30/2023 11:23 AM EST Specimen requisition ordered. ??Separate Pathology report to follow Brandan Mcgovern MD PATHOLOGY/CYTOLOGY O JOSH Performing Organization Address [facility]/ZIP Co de Phone Number [facility] [place] [address] * Surgical Pathology Report (08/30/2023 11:21 AM EST) Final Diagnosis [id number] ? Location: 4T; EA12; A The signing pathologist has (i) examined the relevant preparation(s) for the specimen(s) and (ii) rendered or confirmed the diagnosis(es). . ?Surgical Pathology DIAGNOSIS A - Sigmoid colon polyp, resection (Multiple): - ??Tubular adenoma. CR-PX Electronically signed by: ?Blake ORTEGA PhD, Yulia Verified: ??09/08/2023 14:48 ??Pathologist Performed at: ??-[facility] Dept. of Pathology, [place] [address] Weed Eradicator: Fercho Chan MD, AP, ??CLIA Certificate: [id number] SPECIMEN(S) SUBMITTED A - Sigmoid colon polyp, resection (Multiple) CLINICAL INFORMATION 73-year-old male, history of rectal pain SPECIMEN PROCESSING A - Labeled/Fixativ e: Sigmoid colon polyp, formalin. Quantity/Size: Single, 0.8 cm. Tissue Description: Soft, candelaria tissue. Sections/Proces sing: Submitted in toto ??in 1 cassette labeled A1. ??sdy 09/08/2023 2:48 PM EST [facility] GI Biopsy 08/30/2023 11:2 1 AM EST 08/30/2023 11:21 AM EST Brandan Mcgovern MD PATHOLOGY/CYTOLOGY O JOSH [facility] [place] [address] [place] [address] * COLONOSCOPY (08/30/2023 10:57 AM EST) [facility] COLONOSCOPY [facility] Endoscopy Procedure Date: 08/30/2023 10:57 AM ? Patient Name: Korey Montoya ? Date of : 1950 ? Age: 73 ? Order #: [id number] ? Instrument Name: [id number] ? Procedure: ? Colonoscopy Indications: ? Rectal [...] preparation was evaluated ? using the BBPS ([place] Bowel ? Preparation Scale) with scores of: [...] RN) documented in this encounter Care Teams Radio Frequency Technician Relationship Specialty Start Date End Date Yoel Artis, FREDRICK [address] [place] [address] PCP - General Internal Medicine 11/18/22 07/29/24 documented as of this encounter
--- OUTSIDE RECORDS SUMMARY | 2024-08-31 10:10 | XMS_ITS | Encounter Summary ---
Author Organization [facility] [place] [address] Care Team Providers Care Manufacturing Quality Inspector Name Role Phone Yoel Artis Ute ALCALA Primary Care Provider [phone] Reason for Visit * Auth/Cert (Routine) Specialty Diagnoses / Procedures Referred By Conteleazar t Referred To Contact Diagnoses Anal spasm Fecal smearing Constipation, unspecified Rectal pain, fecal smearing Procedures PRO COLONOSCOPY, DIAGNOSTIC PRO COLONOSCOPY, BIOPSY PRO COLONOSCOPY, REMV LESN, SNARE COLONOSCOPY, DIAGNOSTIC (WRVU 3.26) Brandan Mcgovern MD [facility] [place] [address] [facility] Referral ID Status Reason Start Date Expiration Date Visits Re quested Visits Authorized [id number] 1 1 Encounter Details Date Type Department Care Team (Latest Contact Info) Description 08/30/2023 10:09 AM EST - 08/30/2023 12:19 PM EST Hospital En[place] [address] Brandan Mcgovern MD [facility] [place] [place] [address] Discharge Disposition: Home Social History Tobacco Use [...] this encounter Discharge Instructions * Discharge Instructions* Maldoando Schmitz RN - 08/30/2023 11:27 AM EST [...] occurs, please contact your Doctor. Please call [phone] before 8pm Mon-Fri with problems, questions or concerns. If you call after 8pm or on weekends, call the Hospital at [phone] and ask to speak to the Skein Yard Drier ship's electronic warfare officer and the fiber drier operator will contact that person for you. [...] any problems. Where can you learn more? [facility] View your After Visit Summary and more online at [email or web address] If you would like to provide feedback about your hospital experience, please call the Office of Patient and Family Relations at . If you have received this After Visit Summary in error, please immediately return it in person to the department, or notify the [facility] Privacy Office by calling toll free at between the hours of 8AM and 5PM to arrange for our retrieval of the documents at no cost to you. Content Version: 12.2 ?? [id number] [employer]. Care instructions adapted under license by [facility]. If you have questions about a medical condition or this instruction, always ask your healthcare professional. [employer] disclaims any warranty or liability for your [...] evening. 04/17/2023 08/04/2024 nitroGLYcerin (NITROLINGUAL) 400 mcg/spray [place], Non-AerosolIndications:P roctalgia fugax,Fecal smearing,Constipation, unspecified constipation type [...] 10:00 AM EST Office Visit Cardiology at [address] [address] Mushtaq Murphy, FREDRICK documented as of this encounter Procedures Procedure Name Priority Date/Time Associated Diagnosis Comments SPECIMEN TO PATHOLOGY Routine 08/30/2023 11:23 AM EST SURGICAL PATHOLOGY REPORT Routine 08/30/2023 11:21 AM EST COLONOSCOPY Routine 08/30/2023 10:57 AM EST Colonoscopy, Remv Lesn, Snare ([id number]) 08/30/2023 10:44 AM EST Proctalgia fugax Fecal smearing Constipation, unspecified constipation type documented in this encounter Results * Specimen to Pathology (08/30/2023 11:23 AM EST) AP Specimen 08/30/2023 11:2 3 AM EST 08/30/2023 11:23 AM EST Narrative [facility] - 08/30/2023 11:23 AM EST Specimen requisition ordered. ??Separate Pathology report to follow Brandan Mcgovern MD PATHOLOGY/CYTOLOGY O JOSH Performing Organization Address [facility]/ZIP Co de Phone Number [facility] [place] [phone] * Surgical Pathology Report (08/30/2023 11:21 AM EST) Final Diagnosis [id number] ? Location: 4T; EA12; A The signing pathologist has (i) examined the relevant preparation(s) for the specimen(s) and (ii) rendered or confirmed the diagnosis(es). . ?Surgical Pathology DIAGNOSIS A - Sigmoid colon polyp, resection (Multiple): - ??Tubular adenoma. CR-PX Electronically signed by: ?Blake ORTEGA PhD, Yulia Verified: ??09/08/2023 14:48 ??Pathologist Performed at: ??-[facility] Dept. of Pathology, [place] [address] Gas Plant Operator: Fercho Chan MD, FCAP, ??CLIA Certificate: [id number] SPECIMEN(S) SUBMITTED A - Sigmoid colon polyp, [...] MD PATHOLOGY/CYTOLOGY O JOSH Performing Organization Address City/[facility]/ZIP Co de Phone Number [facility] [place] [address] [facility] [place] [address] * COLONOSCOPY (08/30/2023 10:57 AM EST) COLONOSCOPY [facility] Endoscopy Procedure Date: 08/30/2023 10:57 AM ? Patient Name: Korey Montoya ? Date of : 1950 ? Age: 73 ? Order #: [id number] ? Instrument Name: [id number] ? Procedure: ? Colonoscopy Indications: ? Rectal [...] preparation was evaluated ? using the BBPS (Face to Face Live Bowel ? Preparation Scale) with scores of: [...] RN) documented in this encounter Care Teams Manufacturing Quality Inspector Relationship Specialty Start Date End Date Yoel Artis APRN [address] [place] [address] PCP - General Internal Medicine 11/18/22 07/29/24 documented as of this encounter
--- OUTSIDE RECORDS SUMMARY | 2024-08-31 10:10 | XMS_ITS | Encounter Summary ---
Author Organization [facility] [place] [address] Care Team Providers Care Fertilizer Supervisor Name Role Phone Yoel Artis APRN Primary Care Provider Encounter Details Date Type Department Care Team (Late st Contact Info) Description 03/01/2023 9:30 AM EDT - 03/01/2023 11:59 PM EDT Hospital Encounter [facility] [address] [place] [address] Yoel Artis APRN [address] [place] [address] Discharge Disposition: Home Social History Tobacco Use [...] AM EST Office Visit Cardiology at [address] [address] Mushtaq Murphy APRN documented as of this encounter Procedures Procedure Name Priority Date/Time Associated Diagnosis Comments PSA (ULTRASENSITIVE) Routine 03/01/2023 9:38 AM EDT documented in this encounter Results * (ABNORMAL) PSA (Ultrasensitive) (03/01/2023 9:38 AM EDT) Prostate Specific Antigen (Ultrasensitive) 5.09(H) 0.00 - 4.00 ng/mL [facility] Comment: PLEASE NOTE: The above reference [...] In Lab Yoel Artis APRN CHEMISTRY ORDERABLES [facility] [place] [address] documented in this encounter Visit Diagnoses Not on filedocumented in this encounter Care Teams Fertilizer Supervisor Relationship Specialty Start Date End Date Yoel Artis APRN [address] [place] [address] PCP - General Internal Medicine 11/18/22 07/29/24 documented as of this encounter
--- OUTSIDE RECORDS SUMMARY | 2024-08-31 10:10 | XMS_ITS | Encounter Summary ---
[place] [address] Care Team Providers Care Director Biology Name Role Phone Yoel Artis APRN Primary Care Provider [phone] Reason for Referral * Consultation (Routine) - Closed Specialty Diagnoses / Procedures Referred By Theodore muro Referred To Contact Urology Diagnoses Raised prostate specific antigen PERSISTENTLY MILDLY ELEVATED PSA, URINARY FREQ Yoel Artis APRN [address] [place] [address] [facility] [place] [address] Referral ID Status Reason Start Date Expiration Date V isits Requested Visits Authorized [id number] Closed Consult, Test & Treat PCP Updated and/or Approved 07/30/2023 07/29/2024 6 6 Encounter Details Date Type Department Care Team (Late st Contact Info) Description 07/30/2023 Transcribe Orders eDH Incoming Referrals [phone] Yoel Artis APRN [address] [place] [address] Raised prostate specific antigen Social [...] 10:00 AM EST Office Visit Cardiology at [address] [address] Mushtaq Murphy APRN Scheduled Referrals Name Type Priority Associated Diagnoses Orde r Schedule Referral to Urology Outpatient Referral Routine Raised prostate specific antigen Ordered: 07/30/2023 documented as of this encounter Visit Diagnoses Diagnosis Raised prostate specific antigen Elevated prostate specific antigen (PSA) documented in this encounter Care Teams Director Biology Relationship Specialty Start Date End Date Yoel Artis APRN [address] [place] [address] PCP - General Internal Medicine 11/18/22 07/29/24 documented as of this encounter
--- OUTSIDE RECORDS SUMMARY | 2024-08-31 10:10 | XMS_ITS | Encounter Summary ---
Author Organization [facility] [address] Care Team Providers Care Mdm Sr Name Role Phone Yoel Artis APRN Primary Care Provider Reason for Referral * Consultation (Routine) - Closed Specialty Diagnoses / Procedures Referred By Theodore muro Referred To Contact Gastroenterology Diagnoses Anal spasm motility- anal spasms Yoel Artis APRN [address] [place] [address] [facility] [address] [place] [phone] Referral ID Status Reason Start Date Expiration Date V isits Requested Visits Authorized [id number] Closed Consult, Test & Treat PCP Updated and/or Approved 11/18/2022 11/18/2023 6 6 Encounter Details Date Type Department Care Team (Late st Contact Info) Description 11/18/2022 Transcribe Orders eDH Incoming Referrals [phone] Yoel Artis APRN [address] [place] [address] Anal spasm Social History Tobacco [...] AM EST Office Visit Cardiology at [address] [address] Mushtaq Murphy APRN Scheduled Referrals Name Type Priority Associated Diagnoses Order Schedule Referral to Gastroenterology Outpatient Referral Routine Anal spasm Ordered: 11/18/2022 documented as of this encounter Visit Diagnoses Diagnosis Anal spasm documented in this encounter Care Teams Mdm Sr Relationship Specialty Start Date End Date Yoel Artis APRN [address] [place] [address] PCP - General Internal Medicine 11/18/22 07/29/24 documented as of this encounter
--- OUTSIDE RECORDS SUMMARY | 2024-08-31 10:10 | XMS_ITS | Encounter Summary ---
Author Organization [facility] [place] [address] Care Team Providers Care Boat Builder Name Role Phone Alexia Mtz BAG SHOP WORKER Primary Care Provider [phone] Encounter Details Date Type Department Care Team (Late st Contact Info) Description 06/25/2024 Lab [place] [address] Aubrey Cali MD [address] [place] [address] Pyuria Social History Tobacco Use Types Packs/Day [...] AM EST Office Visit Cardiology at [address] [phone] Mushtaq Murphy APRN documented as of this [...] [facility] [place] [address] documented in this encounter Visit Diagnoses Diagnosis Pyuria Other nonspecific finding on examination of urine documented in this encounter Care Teams Boat Builder Relationship Specialty Start Date End Date Alexia Mtz, BAG SHOP WORKER [address] [place] [address] PCP - General Family Medicine 07/30/24 documented as of this encounter
--- OUTSIDE RECORDS SUMMARY | 2024-08-31 10:10 | XMS_ITS | Encounter Summary ---
Author Organization [facility] [place] [address] Care Team Providers Care Printer Technician Name Role Phone Anibal Mtz MD Primary Care Provider [phone] Encounter Details Date Type Department Care Team (Late st Contact Info) Description 11/08/2022 Interpretation Only [address] [phone] Eve Frost MD [address] [place] [address] Social History Tobacco Use Types Packs/Day Years [...] 10:00 AM EST Office Visit Cardiology at [address] [address] Mushtaq Murphy APRN documented as of this encounter Procedures Procedure Name Priority Date/Time Associated Diagnosis Comments XR CHEST PA AND LATERAL STAT 11/08/2022 10:34 AM EST documented in this encounter Results * XR Chest PA & Lateral (Generic) (11/08/2022 10:34 AM EST) PT CLASS E RAD ADMITDTTM RAD PT RAD INFO [id number]^C HANDER^SUNEE R RAD EXAM DESC XCXR2^XR CHEST [...] who have questions please contact the health long term care administrator that requested your imaging first. ? Electronically signed by: Alejandro Tenorio MD, [facility] ([phone]), at 11/08/2022 10:37 AM Narrative 11/08/2022 10:37 [...] patients who have questions please contactthe health long term care administrator that requested your imaging first. Eve Frost MD IMG DX ORDERABLES documented in this encounter Visit Diagnoses Not on filedocumented in this encounter Care Teams Printer Technician Relationship Specialty Start Date End Date Anibal Mtz MD [address] [place] [address] PCP - General Family Medicine 01/17/19 11/17/22 documented as of this encounter
--- OUTSIDE RECORDS SUMMARY | 2024-08-31 10:10 | XMS_ITS | Encounter Summary ---
Author Organization [facility] Address [facility] [place] [address] Care Team Providers Care Turn Laster Name Role Phone Yoel Artis Ute ALCALA Primary Care Provider [phone] Encounter Details Date Type Department Care Team (Late st Contact Info) Description 07/29/2024 Orders Only [place] [address] Susannah Watts PA [facility] [place] [address] [address] Social History Tobacco Use Types Packs/Day Years Used Date Smoking Tobacco: Former Cigarettes Smokeless Tobacco: Never Alcohol Use Standard Drinks/Week Comments Not Currently 0 (1 standard drink = 0.6 oz pur e alcohol) [facility] Utilities Answer Date Recorded In the past 12 months has [employer], gas, oil, or water [employer] threatened to shut off services in your [...] any time in the past 12 m [facility], were you homeless or living in [...] 10:00 AM EST Office Visit Cardiology at [address] [phone] Mushtaq Murphy APRN documented as of this encounter Procedures Procedure Name Priority Date/Time Associated Diagnosis Comments ECHOCARDIOGRAM TRANSTHORACIC Routine 07/30/2024 1:41 AM EST documented in this encounter Results * Echocardiogram Transthoracic (07/30/2024 1:41 AM EST) Anatomical Region Laterality Modality Cardiac Other 07/30/2024 1:41 AM EST Narrative 07/30/2024 8:23 AM EST [address] [place] [address] ? Echocardiogram Report Name: KOREY BERMUDEZ ? Study Date: 07/30/2024 01:41 AM : 1950 ? Height: 168 cm Age: 74 yrs ? Weight: 5.9 kg Gender: Male ?BSA: 0.63 m2 Performed By: Beatris Ching MD Reason For Study: STEMI, [place] History: ASCVD, HTN, HLD Interpreting Fellow: Beatris Ching. Interpretation Summary This is a limited study performed by a fellow union carpenter to evaluate for cardiogenic shock with impella [...] study available for comparison. Procedure Limited - [id number]. Suboptimal quality. There is sinus bradycardia. Left [...] Note Kathleen Banda MD - 07/30/2024 [address] [place] [address] Echocardiogram Report Name: LARA KOREY Kyrie Study Date: 07/30/2024 01:41AM : 1950 Height: 168 cm Age: 74 yrs Weight: 5.9 kg Gender: Male BSA: 0.63 m2 Performed By: Beatris Ching MD Reason For Study: STEMI, [place] History: ASCVD, HTN, HLD Interpreting Fellow: Beatris Ching. Interpretation Summary This is a limited study performed by a fellow union carpenter to evaluate forcardiogenic shock with impella in. [...] study available for comparison. Procedure Limited - 76843. Suboptimal quality. There is sinus bradycardia. Left [...] on filedocumented in this encounter Care Teams Turn Laster Relationship Specialty Start Date End Date Yoel Artis APRN [address] [place] [address] PCP - General Internal Medicine 11/18/22 07/29/24 documented as of this encounter
--- OUTSIDE RECORDS SUMMARY | 2024-08-31 10:10 | XMS_ITS | Encounter Summary ---
Author Organization [place] [address] Care Team Providers Care Plasterer Rough Name Role Phone Unknown Primary Care Provider Unavailabl e Encounter Details Date Type Department Care Team (Late st Contact Info) Description 12/03/2018 Interpretation Only [address] [phone] Ac Albrecht PA [address] [place] [address] [place] [address] Social History Tobacco Use Types Packs/Day Years [...] 10:00 AM EST Office Visit Cardiology at [address] [address] Mushtaq Murphy APRN documented as of this [...] on filedocumented in this encounter Care Teams Plasterer Rough Relationship Specialty Start Date End Date Unknown None PCP - General 08/04/10 01/16/19 documented as of this encounter
--- OUTSIDE RECORDS SUMMARY | 2024-08-31 10:10 | XMS_ITS | Encounter Summary ---
Author Organization [facility] [place] [address] Care Team Providers Care Animation Camera Operator Name Role Phone Yoel Artis Ute ALCALA Primary Care Provider [phone] Encounter Details Date Type Department Care Team (Late st Contact Info) Description 07/29/2024 Interpretation Only [facility] [address] [place] [id number] Chaparro Montana MD [address] [place] [address] Social History Tobacco Use Types Packs/Day Years Used Date Smoking Tobacco: Former Cigarettes Smokeless Tobacco: Never Alcohol Use Standard Drinks/Week Comments Not Currently 0 (1 standard drink = 0.6 oz pur e alcohol) [facility] Utilities Answer Date Recorded In the past 12 months has [employer], gas, oil, or water [employer] threatened to shut off services in your [...] AM EST Office Visit Cardiology at [address] [phone] Mushtaq Murphy APRN documented as of this encounter Procedures Procedure Name Priority Date/Time Associated Diagnosis Comments XR CHEST ONE VIEW STAT 07/29/2024 10: 50 AM EST documented in this encounter Results * XR Chest One View (07/29/2024 10:50 AM EST) PT CLASS E RAD ADMITDTTM [id number] RAD PT RAD MD INFO [id number]^Jordy henry^[facility] RAD EXAM DESC XCXR1^XR Chest 1 [...] who have questions please contact the health daycare teacher that requested your imaging first. ? Electronically signed by: Darvin Noyola [facility] ([phone]), at 07/29/2024 11:07 AM Narrative 07/29/2024 11:07 AM EST EXAMINATION: XR [...] patients who have questions please contactthe health daycare teacher that requested your imaging first. Electronically signed by: Darvin Noyola [facility]([phone]), at 07/29/2024 11:07 AM Chaparro Montana MD IMG DX ORDERABLES documented in this encounter Visit Diagnoses Not on filedocumented in this encounter Care Teams Animation Camera Operator Relationship Specialty Start Date End Date Yoel Artis APRN [address] [place] [id number] PCP - General Internal Medicine 11/18/22 07/29/24 documented as of this encounter
--- OUTSIDE RECORDS SUMMARY | 2024-09-03 10:59 | XMS_ITS | Clinical Summary ---
Author Organization [facility] Address [facility] [place] [address] Care Team Providers Care Clinical Data Programmer Name Role Phone Alexia Mtz BRANCH CONTROLLER Primary Care Provider Allergies No known active allergies Medications Medication [...] Description 07/31/2024 4:45 PM EST Anesthesia Event [employer] [place] [address] Venkatesh Mauricio MD 07/31/2024 4:30 PM EST - 07/31/2024 5:30 PM EST Surgery [employer] [place] [address] Maldonado Luis MD CARDIAC CATHETERIZATION 07/29/2024 6:32 PM EST - 07/29/2024 11:59 PM EST Hospital Encounter [facility] at [address] [phone] Arvin Becerra MD Discharge Disposition: Home 07/29/2024 12:00 PM EST - 07/29/2024 12:54 PM EST Surgery [employer] [place] [address] Vahe Marvin MD CARDIAC CATHETERIZATION 07/29/2024 11:45 AM EST - 08/04/2024 5:00 PM EST Hospital [place] [address] Vahe Marvin MD Dadekian, Gregory A, MD Welch, Terrence D, MD Vinod, Poornima, MD Kostojchin, Anastas, MD Kussaga, Frank M, MD ST elevation myocardial infarction involving left anterior descending (LAD) coronary artery; HFrEF (heart failure with reduced ejection fraction) Discharge Disposition: Home 07/29/2024 Orders Only [employer] [place] [address] Susannah Watts PA 07/29/2024 Interpretation Only [address] [phone] Deondre Ferrera MD 07/29/2024 Notes [place] [address] Ivan Hernandez MD 07/29/2024 External [place] [address] 07/28/2024 Interpretation Only [address] [address] Quinten Coffey MD 06/25/2024 Lab [place] [address] Aubrey Cali MD Pyuria from [...] drink = 0.6 oz pur e alcohol) [facility] Utilities Answer Date Recorded In the past 12 months has th e [employer], gas, oil, or water AGELON ? threatened to shut off services in your [...] AM EST Office Visit Cardiology at [address] [phone] Mushtaq Murphy, FREDRICK Health Maintenance Due Date [...] MD HEMATOLOGY ORDERABLE S Performing Organization Address City/[facility]/ZIP Co de Phone Number [facility] [place] [address] * Magnesium (08/04/2024 6:08 AM EST) Only the most recent of8 resultswithin the time period is included. Magnesium 0.85 0.69 - 1.07 mMol/L 08/04/2024 7:07 AM [facility] Blood VENOUS BLOOD SPECIMEN / Unknown Venipuncture / Unknown 08/04/2024 6:08 AM EST 08/04/2024 6:19 AM EST Bridgette Stauffer MD CHEMISTRY ORDERABLES Performing Organization Address [facility] Co de Phone Number [facility] [place] [address] * Basic Metabolic Panel (08/04/2024 6:08 AM [...] - 15 mMol/L 08/04/2024 7:07 AM EST [facility] Calcium 8.5 8.5 - 10.5 mg/dL 08/04/2024 7:07 AM EST [facility] Est Glomerular Filtration Rate - Male 74 mL/min/1. 73 m?? 08/04/2024 7:07 AM EST [facility] Comment: This [...] Stauffer MD CHEMISTRY ORDERABLES Performing Organization Address City/[facility]/ZIP Co de Phone Number [facility] [place] [address] * POC, GLUCOSE (08/02/2024 7:47 AM EST) Only the most recent of16 resultswithin the time period is included. [facility] Signature Glucometer, POC 89 65 - 199 mg/dL 08/02/2024 7:47 AM EST [facility] Comment:Supplemental ranges: <140 mg/dL before meals <180 mg/dL all other times of the day. Blood CAPILLARY BLOOD / Unknown 08/02/2024 7:47 AM EST 08/02/2024 7:47 AM EST Arnel Parker MD POINT OF CARE TEST O RDERABLES Performing Organization Address City/[facility]/ZIP Co de Phone Number [facility] [place] [address] * Scan Doc: Telemetry Strips (08/02/2024 7:37 AM EST) Only the most recent of3 resultswithin the time period is included. Narrative 08/02/2024 7:37 AM EST Ordered by an unspecified provider. Scanning Provider MEDIA MGR SCAN EXT O RDR/RSLT * Potassium (08/01/2024 8:39 PM EST) Only the most recent of4 resultswithin the time period is included. Pathologist [facility] Potassium 4.0 3.5 - 5.0 mMol/L 08/01/2024 9:21 PM EST [facility] Blood VENOUS BLOOD SPECIMEN / Unknown Venipuncture / Unknown 08/01/2024 8:39 PM EST 08/01/2024 8:51 PM EST Jay Silverio MD CHEMISTRY ORDERABL ES [facility] [place] [address] * (ABNORMAL) Cooximetry, POC (08/01/2024 10:45 AM EST) Only the most recent of2 resultswithin the time period is included. pO2, Coox 32 mmHg 08/01/2024 10:48 AM EST [facility] Hemoglobin, Coox 12.9(L) 13.7 - 16.5 g/dL 08/01/2024 10:48 AM EST [facility] Oxyhemoglobin, Coox 66.7 % 08/01/2024 10:48 AM EST [facility] Carboxyhemoglo bin, Coox 1.1 % 08/01/2024 10:48 AM EST [facility] Comment: Nonsmokers: 0.5-1.5% COHB ?? Smokers: Variable ??but usually less than 10% ?? Toxic: 20-30% COHB ?? Lethal: Greater than 60% COHB Methemoglobin, Coox 0.3 <=1.5 % 08/01/2024 10:48 AM EST [facility] Blood (Mixed Venous) 08/01/2024 10:45 AM EST 08/01/2024 10:48 AM EST Arnel Parker MD POINT OF CARE TEST O RDERABLES Performing Organization Address [facility]/State/[facility] Co de Phone Number [facility] [place] [address] * CARDIAC CATHETERIZATION (07/31/2024 5:53 PM EST) Only the most recent of2 resultswithin the time period is included. Anatomical Region Laterality Modality Other Narrative 08/01/2024 12:37 PM EST ?[facility] ? Cardiac Catheterization/Intervention Report ? Patient Name: MontoyaKorey. ? Procedure Date: 07/31/2024 ? A #: [id number] ? Primary Physician: Maldonado Luis ? Case #: [id number] ? File Name: [id number] ? Catheterization Order Number: [id number] ? [facility] ? Final Report [place], [place] ? Patient Name: ? Korey Montoya ?ID#: ?[id number] ? : ?1950 ? Procedure Date: ? [...] ? Comments: ?Impella removed from the right CHIEF STATION ENGINEER with deployment of Perclose and ?Angioseal. ??Good [...] Korey Montoya Procedure Date: 07/31/2024 A #: [id number] Primary Physician: Maldonado Luis Case #: [id number] File Name: [id number] Catheterization Order Number: [id number] [facility] FinalReport [place], [place] Patient Name: Korey Montoya ID#:[id number] :1950 Procedure Date: July 31, 2024 Case [...] was designated as ASA Class IV. The [facility] clinical frailtyscale is 4: Vulnerable. [...] procedures. Comments: Impella removed from the right CHIEF STATION ENGINEER with deployment of Perclose and Angioseal. Good [...] 7.48(H) 7.35 - 7.45 07/31/2024 8:30 AM [facility] PCO2, Arterial 29(L) 35 - 45 mmHg 07/31/2024 8:30 AM [facility] PO2, Arterial 71(L) 85 - 104 mmHg 07/31/2024 8:30 AM [facility] Bicarbonate, Arterial 20.6 20.0 - 26.0 mmol/L 07/31/2024 8:30 AM [facility] Base Excess, Arterial -3.0 -3.0 [...] CARE TEST O RDERABLES [facility] [place] [address] * (ABNORMAL) Hepatic Function Panel (07/31/2024 1:08 [...] - 0.3 mg/dL 07/31/2024 1:46 AM EST [facility] Protein, Total 5.0(L) 6.1 - 8.0 g/dL 07/31/2024 1:46 AM [facility] Blood VENOUS BLOOD SPECIMEN / Unknown Venipuncture / Unknown 07/31/2024 1:08 AM EST 07/31/2024 1:18 AM EST Arnel Parker MD CHEMISTRY ORDERABLES Performing Organization Address City/[facility]/ZIP Co de Phone Number [facility] [place] [address] * (ABNORMAL) Phosphorus (07/30/2024 3:08 PM EST) Only the most recent of3 resultswithin the time period is included. Phosphorus 2.1(L) 2.5 - 4.5 mg/dL 07/30/2024 3:58 PM EST [facility] Blood VENOUS BLOOD SPECIMEN / Unknown Venipuncture / Unknown 07/30/2024 3:08 PM EST 07/30/2024 3:12 PM EST Jay Silverio MD CHEMISTRY ORDERABL ES Performing Organization Address City/[facility]/ZIP Co de Phone Number [facility] [place] [address] * ECHO LMTD W CONTRAST W LMTD SPEC DOPP COLOR DOPP (07/30/2024 11:42 AM EST) Anatomical Region Laterality Modality Cardiac Other 07/30/2024 10:2 2 AM EST Narrative 07/30/2024 12:34 PM EST [address] [place] [address] ? Echocardiogram Report Name: KOREY MONTOYA ? Study Date: 07/30/2024 10:22 AMBP: 124/66 mmHg : 1950 ? Height: 168 cm ? Account: [id number] Age: 74 yrs ? Weight: 65 kg [...] Compared to the overnight study by the companion caregiver fellow the impella position is stable. 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 Procedure Limited - 04041. Image enhancement Definity was used for both [...] Note Kathleen Banda MD - 07/30/2024 1 [place] [address] Echocardiogram Report Name: KOREY MONTOYA Study Date: 410:22 AMBP: 124/66 mmHg : 1950 Height: 168 cm Account: [id number] Age: 74 yrs Weight: 65 kg Gender: [...] Compared to the overnight study by the companion caregiver fellow the impella positionis stable. The global left ventricular systolic function has improvedpredominantly via recruitment outside the LAD territory which remains akinetic. Procedure Limited - 41184. Image enhancement Definity was used for both [...] troponin value can be found in the [facility] Test Catalog Troponin - [email or web address] Reference: Fourth Veyo Definition of Myocardial Infarction. Journal of the [place] College of [employer] 2018;72:6639-4329 Blood VENOUS BLOOD SPECIMEN / Unknown Venipuncture / Unknown 07/30/2024 8:09 AM EST 07/30/2024 8:26 AM EST Jay Silverio MD CHEMISTRY ORDERABL ES Performing Organization Address City/State/[facility] Co de Phone Number [facility] [place] [address] * Echocardiogram Transthoracic (07/30/2024 1:41 AM EST) Anatomical Region Laterality Modality Cardiac Other 07/30/2024 1:41 AM EST Narrative 07/30/2024 8:23 AM EST [address] [place] [address] ? Echocardiogram Report Name: KOREY MONTOYA ? Study Date: 07/30/2024 01:41 AM : 1950 ? Height: 168 cm Age: 74 yrs ? Weight: 5.9 kg Gender: Male ?BSA: 0.63 m2 Performed By: Beatris Ching MD Reason For Study: STEMI, VT History: ASCVD, HTN, HLD Interpreting Fellow: Beatris Ching. Interpretation Summary This is a limited study performed by a fellow companion caregiver to evaluate for cardiogenic shock with impella [...] study available for comparison. Procedure Limited - 19759. Suboptimal quality. There is sinus bradycardia. Left [...] Note Kathleen Banda MD - 07/30/2024 1 [place] [address] Echocardiogram Report Name: KOREY MONTOYA Study Date: 07/30/2024 01:41AM : 1950 Height: 168 cm Age: 74 yrs Weight: 5.9 kg Gender: Male BSA: 0.63 m2 Performed By: Beatris Ching MD Reason For Study: STEMI, VT History: ASCVD, HTN, HLD Interpreting Fellow: Beatris Ching. Interpretation Summary This is a limited study performed by a fellow companion caregiver to evaluate forcardiogenic shock with impella in. [...] study available for comparison. Procedure Limited - 02817. Suboptimal quality. There is sinus bradycardia. Left [...] Recheck AB POSITIVE 07/29/2024 10:13 PM EST [facility] Blood VENOUS BLOOD SPECIMEN / Unknown Venipuncture / Unknown 07/29/2024 6:43 PM EST 07/29/2024 7:15 PM EST Jay Silverio MD BLOOD BANK LAB ORD ERABLES Performing Organization Address City/[facility]/ZIP Co de Phone Number [facility] [place] [address] * Type and screen ([facility]MAGALIE) (07/29/2024 5:56 PM EST) Pathologist [facility] ABORH Type AB POSITIVE 07/29/2024 9:44 PM EST [facility] PATIENT HISTORY Not Found 07/29/2024 9:44 PM EST [facility] Expires at [id number] on: 08/01/2024 07/29/2024 9:44 PM EST [facility] ANTIBODY SCREEN AUTOMATED Negative 07/29/2024 9:44 PM EST [facility] T&S only valid at [facility] 07/29/2024 9:44 PM EST [facility] Blood VENOUS BLOOD SPECIMEN / Unknown Venipuncture / Unknown 07/29/2024 5:56 PM EST 07/29/2024 6:07 PM EST Narrative [facility] - 07/29/2024 9:44 PM EST This Type and Screen result is only valid at the [facility] Jay Silverio MD BLOOD BANK LAB ORD ERABLES Performing Organization Address City/[facility] Co de Phone Number [facility] [place] [address] * EKG 12 Lead (07/29/2024 4:21 PM EST) Only the most recent of2 resultswithin the time period is included. Ventricular rate 72 BPM MUSE SYSTEM Atrial Rate 72 BPM MUSE SYSTEM P-R Interval 168 ms MUSE SYSTEM QRS Duration 82 ms MUSE SYSTEM Q-T Interval 392 ms MUSE SYSTEM QTC Calculated (Bezet) 429 ms MUSE SYSTEM Calculated P [place] 71 degrees MUSE SYSTEM Calculated R [place] 77 degrees MUSE SYSTEM Calculated T [place] 28 degrees MUSE SYSTEM INTERPRETATION Sinus rhythm with Premature supraventricular complexes and Occasional Premature ventricular complexes Low voltage QRS 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) Lateral injury pattern ACUTE WI / STEMI Abnormal ECG When compared with ECG of 29-JUL-2024 13:43, (unconfirmed) Serial changes of evolving Anteroseptal infarct Present Confirmed by MD Marcus, Roverto (1963) on 07/31/2024 5:30:06 AM MUSE SYSTEM 07/29/2024 4:21 PM EST 07/31/2024 5:30 AM EST Jay Silverio MD ECG ORDERABLES Performing Organization Address City/[facility]/ZIP Co de Phone Number MUSE SYSTEM [...] - BLO OD ORDERABLES Performing Organization Address City/[facility] Co de Phone Number [facility] [place] [address] * XR Chest One View (07/29/2024 2:30 PM EST) Only the most recent of3 resultswithin the time period is included. WORKSTATION ID [id number] DH RAD Anatomical Region Laterality Modality Chest [...] who have questions please contact the health customer care coordinator that requested your imaging first. ? Electronically signed by: Chris Candelaria MD, [facility] ([phone]), at 07/29/2024 3:21 PM Narrative 07/29/2024 3:21 [...] patients who have questions please contactthe health customer care coordinator that requested your imaging first. Electronically signed by: Chris Candelaria MD, [facility]([phone]), at 07/29/2024 3:21 PM Vahe Marvin MD IMG DX ORDERABLES * TSH Raymond (07/29/2024 2:03 PM EST) Thyroid Stimulating Hormone 0.70 0.27 - 4.20 mcIU/mL 07/29/2024 2:52 PM EST [facility] Blood VENOUS BLOOD SPECIMEN / Unknown Venipuncture / Unknown 07/29/2024 2:03 PM EST 07/29/2024 2:14 PM EST Vahe Marvin MD CHEMISTRY ORDERABLES Performing Organization Address City/[facility]/ZIP Co de Phone Number [facility] [place] [address] * CRP, acute inflammation (07/29/2024 2:03 PM EST) C-Reactive Protein <3.0 <=4.9 mg/L 07/29/2024 2:52 PM EST [facility] Blood VENOUS BLOOD SPECIMEN / Unknown Venipuncture / Unknown 07/29/2024 2:03 PM EST 07/29/2024 2:14 PM EST Vahe Marvin MD CHEMISTRY ORDERABLES Performing Organization Address City/[facility]/ZIP Co de Phone Number [facility] [place] [address] * (ABNORMAL) APTT (07/29/2024 2:03 PM EST) Partial Thromboplastin Time >160(HHH) 25 - 37 sec 07/29/2024 2:56 PM EST [facility] Blood VENOUS BLOOD SPECIMEN / Unknown Venipuncture / Unknown 07/29/2024 2:03 PM EST 07/29/2024 2:13 PM EST Vahe Marvin MD HEMATOLOGY ORDERABLE S [facility] [place] [address] * (ABNORMAL) Prothrombin Time (07/29/2024 2:03 PM [...] MD HEMATOLOGY ORDERABLE S [facility] [place] [address] * Hemoglobin A1c (07/29/2024 2:03 PM EST) Pathologist [facility] Hemoglobin A1c 5.3 4.3 - 5.6 % [...] red blood cell turnover may not be product representative of glycemic control. Reference Interval: 4.3 [...] EST 07/29/2024 2:14 PM EST [facility] - 07/29/2024 2:41 PM EST Estimated average glucose (eAG) is calculated from the equation described in: Quinten DM, Rikki J, Reno R, et al. ??Translating the A1C assay into estimated average glucose values. ??Diabetes Care 2008:31(8):6704-7883. Additional resources are available on the ADA website (diabetes.org). Vahe Marvin MD CHEMISTRY ORDERABLES [facility] [place] [address] * Lipid Panel (Reflex Direct LDL) (07/29/2024 2:03 PM EST) [facility] Cholesterol, Total 133 mg/dL 07/29/2024 2:52 PM [facility] Comment: Desirable: < 200 mg/dL Borderline High: 200 - 239 mg/dL High: > or = 240 mg/dL Triglyceride 45 mg/dL 07/29/2024 2:52 PM [facility] Comment: Normal: <150 mg/dL Borderline High: 150-199 mg/dL High: 200-499 mg/dL Very High: > or =500 mg/dL HDL Cholesterol 58 mg/dL 4 2:52 PM [facility] Comment:Males: High Risk: <4 0 mg/dL LDL Cholesterol 64 mg/dL 4 2:52 PM [facility] Comment: Desirable: <100 mg/dL Above Desirable: 100-129 mg/dL Borderline High: 130-159 mg/dL High: 160-189 mg/dL Very High: > or =190 mg/dL Note: LDL calculation updated to the NIH LDL formula as of 04/15/2024 Non-HDL Cholesterol 75 mg/dL 07/29/2024 2:52 PM EST [facility] Comment: Desirable: <130 mg/dL Above Desirable: 130-159 mg/dL Borderline High: 160-189 mg/dL High: 190-219 mg/dL Very High: > or = 220 mg/dL Blood VENOUS BLOOD SPECIMEN / Unknown Venipuncture / Unknown 07/29/2024 2:03 PM EST 07/29/2024 2:14 PM EST [facility] - 07/29/2024 2:52 PM [...] even lower. ?? ACC/AHA Guidelines (most recently Rlof et al. [facility] 06/15/22): * For individuals with atherosclerotic [...] artery disease) Vahe Marvin MD CHEMISTRY ORDERABLES [facility] [place] [address] * (ABNORMAL) Comprehensive metabolic panel (07/29/2024 2:03 PM EST) Glucose 243(H) 65 - 199 mg/dL 07/29/2024 3:11 PM EST [facility] Comment:Glucose Concentratio n >=200 mg/dL plus symptoms is consistent with Diabetes Mellitus. Blood Urea Nitrogen 13 10 - 20 mg/dL 07/29/2024 3:11 PM EST [facility] Creatinine 0.88 0.80 - 1.50 mg/dL 07/29/2024 3:11 PM EST [facility] Sodium 138 135 - 145 mMol/L 07/29/2024 3:11 PM EST [facility] Potassium 3.6 3.5 - 5.0 mMol/L 07/29/2024 3:11 PM EST [facility] Chloride 104 98 - 107 mMol/L 07/29/2024 3:11 PM EST [facility] Carbon Dioxide 19(L) 22 - 31 mMol/L 07/29/2024 3:11 PM EST [facility] Anion Gap 15 5 - 15 mMol/L 07/29/2024 3:11 PM EST [facility] Calcium 8.0(L) 8.5 - 10.5 [...] 91 mL/min/1. 73 m?? 07/29/2024 3:11 PM [facility] Comment: This patient's [...] Marvin MD CHEMISTRY ORDERABLES [facility] [place] [address] * (ABNORMAL) Blood Gas, Venous POC (07/29/2024 2:01 PM EST) pH, Venous 7.30(L) 7.32 - 7.42 07/29/2024 2:02 PM [facility] PCO2, Venous 42 38 - [...] Venous 0.3 <=1.5 % 07/29/2024 2:02 PM [facility] Sodium, Venous 137 135 - 145 mmol/L 07/29/2024 2:02 PM [facility] Potassium, Venous 3.6 3.5 - 5.0 mmol/L 07/29/2024 2:02 PM [facility] Chloride, Venous 103 98 - 107 mmol/L 07/29/2024 2:02 PM [facility] Glucose, Venous 229(H) 65 - 199 mg/dL 07/29/2024 2:02 PM [facility] Comment:Glucose Concentratio n >=200 mg/dL plus symptoms is consistent with Diabetes Mellitus. Lactate, Venous 3.1(H) 0.5 - 2.2 mmol/L 07/29/2024 2:02 PM [facility] Ionized Calcium, Venous 1.11(L) 1.15 - 1.33 mmol/L 07/29/2024 2:02 PM [facility] Blood VENOUS BLOOD SPECIMEN / Unknown 07/29/2024 2:01 PM EST 07/29/2024 2:02 PM EST Vahe Marvin MD POINT OF CARE TEST O RDERABLES [facility] [place] [address] * (ABNORMAL) BLOOD GAS, POC (07/29/2024 12:46 [...] - 16.5 g/dL 07/30/2024 7:30 AM EST [facility] Comment:The calculation of h emoglobin from hematocrit assumes a normal MCHC. Bicarbonate, POC 19.8(L) 20.0 - 26.0 mmol/L 07/30/2024 7:30 AM EST [facility] Carbon Dioxide, POC 21(L) 22 - 31 mmol/L 07/30/2024 7:30 AM EST [facility] Blood VENOUS BLOOD SPECIMEN / Unknown 07/29/2024 12:46 PM EST 07/30/2024 7:30 AM EST Vahe Marvin MD POINT OF CARE TEST O RDERABLES Performing Organization Address [facility]/[place] [address] * External Cardiology Result (07/29/2024 10:13 AM [...] - GENER AL ORDERABLES Performing Organization Address City/[facility]/ZIP Co de Phone Number [facility] [place] [address] * COLONOSCOPY (08/30/2023 10:57 AM EST) COLONOSCOPY [facility] Endoscopy Procedure Date: 08/30/2023 10:57 AM ? Patient Name: Korey Montoya ? Date of : 1950 ? Age: 73 ? Order #: [id number] ? Instrument Name: [id number] ? Procedure: ? Colonoscopy Indications: ? Rectal [...] preparation was evaluated ? using the BBPS (Everett Bowel ? Preparation Scale) with scores of: [...] 08/30/2023 10:5 7 AM EST Yoel Artis BRANCH CONTROLLER GENERAL SURGICAL ORD ERABLES PROVATION from Last 3 Months or Most Recently Relevant to Health Maintenance Advance Directives * Attempt Cardiopulmonary Resuscitation - Inpatient (Latest Code Status on File) Date Activated Date Inactivated Comments 07/29/2024 2:01 PM 08/04/2024 7:34 PM Question Answer Comments Code Status decision made by: Patient Content of discussion: pre-arrest limitations Care Teams Clinical Data Programmer Relationship Specialty Start Date End Date Alexia Mtz APRN [address] [place] [id number] PCP - General Family Medicine 07/30/24
--- OUTSIDE RECORDS SUMMARY | 2024-09-03 11:00 | XMS_ITS | Encounter Summary ---
[place] [address] Care Team Providers Care Business Services Sales Agent Name Role Phone Alexia Mtz FORESTRY AND WILDLIFE MANAGER Primary Care Provider [phone] Reason for Visit * Auth/Cert (Routine) Specialty Diagnoses / Procedures Referred By Theodore t Referred To Contact Diagnoses STEMI (ST elevation myocardial infarction) STEMI Procedures ER Vahe Lopez MD [facility] [place] [address] [facility] Referral ID Status Reason Start Date Expiration Date Visits Re quested Visits Authorized [id number] 1 1 Encounter Details Date Type Department Care Team (Late st Contact Info) Description 07/31/2024 4:45 PM EST Anesthesia [place] [address] Venkatesh Mauricio MD [facility] [place] [address] Anesthesia Record Procedure Summary Procedure Name Responsible [...] Right; femoral vein; hemodynamic monitoring; Placed in labor contractor; 08/01/24; 1420 07/29/24 1300 by Silvia Wan RN 08/01/24 1420 by Marivel English RN PIV 07/29/24; 1300; [id number] catheter system; 18 gauge; basilic vein (medial [...] 0.6 oz pur e alcohol) [facility] Utilities Answer Date Recorded [...] time in the past 12 m [facility], were you homeless or living in a [...] 10:00 AM EST Office Visit Cardiology at [address] [address] Mushtaq Murphy APRN documented as of this encounter Visit Diagnoses Not on filedocumented in this encounter Care Teams Business Services Sales Agent Relationship Specialty Start Date End Date Alexia Mtz, [address] [place] [address] PCP - General Family Medicine 07/30/24 documented as of this encounter
--- OUTSIDE RECORDS SUMMARY | 2024-09-03 11:00 | XMS_ITS | Encounter Summary ---
[place] [address] Care Team Providers Care Press Supervisor Name Role Phone Alexia Mtz FREDRICK Primary Care Provider Reason for Visit * Auth/Cert (Routine) Specialty Diagnoses / Procedures Referred By Theodore muro Referred To Contact Diagnoses STEMI (ST elevation myocardial infarction) STEMI Procedures ER SUI Vahe Marvin MD [facility] [place] [address] [facility] Referral ID Status Reason Start Date Expiration Date Visits Re quested Visits Authorized [id number] 1 1 Encounter Details Date Type Department Care Team (Late st Contact Info) Description 07/31/2024 4:30 PM EST - 07/31/2024 5:30 PM EST Surgery [place] [id number] Maldonado Luis MD [facility] [place] [address] CARDIAC CATHETERIZATION Social History Tobacco Use Types Packs/Day Years Used Date Smoking Tobacco: Former Cigarettes Smokeless Tobacco: Never Alcohol Use Standard Drinks/Week Comments Not Currently 0 (1 standard drink = 0.6 oz pur e alcohol) [facility] Utilities Answer Date Recorded In the past 12 months has [employer], gas, oil, or water company threatened [...] any time in the past 12 m [facility], were you homeless or living [...] Korey Montoya Patient Age: 74 y.o. Language: Serbian Race: White Ethnicity: Not nor Admit date: [...] please contact your inpatient physician through the [facility] Pan Washer Hand . Issues afterhours and on weekends will [...] EKG. Patient transferred via air ambulance to [facility] on 07/29 for LHC and LOW to [...] EKG. Was transferred via air ambulance to [facility] for further management and LHC demonstrated 100% [...] the next year. Access was via right SPEECH LANGUAGE PATHOLOGIST ASSISTANT and this sitewas clean, dry and intact [...] for Chest pain. Replaces: nitroGLYcerin 400 mcg/spray [place], Non-Aerosol 0.4 mg Quantity: 90 tablet Refills: [...] Refills: 0 STOPPED Medications nitroGLYcerin 400 mcg/spray [place], Non-Aerosol Commonly known as: NITROLINGUAL Replaced by: [...] of one year. After this time, your bible reader will determine if you need to continue [...] away. Stay on the phone. The emergency bread oven operator will tell you what to do. [...] appointments: During 8am-5pm Tuesday through Tuesday call [phone] to speak with a nurse in the cardiology clinic All other times call [phone] and ask to speak to the assembler clip on sunglasses php consultant. Follow up Appointments: PCP Alexia Mtz, ETCHED CIRCUIT PROCESSOR [phone]. Please call to establish a follow up appointment within 1-2 weeks of discharge. Cardiology. Referral to heart failure has been sent. General Instructions None Future Appointments and Orders Future Orders Complete By Expires Referral to Cardiac Rehab [[id number] Custom] As directed Process Instructions: If no progress note charted, please enter Clinical details in comments. Scheduling Instructions: Questions: My question or request is: STEMI, PCI- cardiac rehab at [facility] Referral to Cardiology [REF12 Custom] As [...] of one year. After this time, your bible reader will determine if you need to continue [...] away. Stay on the phone. The emergency bread oven operator will tell you what to do. [...] appointments: During 8am-5pm Tuesday through Tuesday call [phone] to speak with a nurse in the cardiology clinic All other times call [phone] and ask to speak to the assembler clip on sunglasses php consultant. Follow up Appointments: PCP Alexia Mtz, ETCHED CIRCUIT PROCESSOR [phone]. Please call to establish a follow up [...] EKG. Patient transferred via air ambulance to [facility] on 07/29 for LHC and LOW to LAD for 100% occlusion Social History: Pt lives with his in a 1 level home with 2 NAOMI. 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 He [...] Total time: 35 (tef) minutes Time IN/OUT: [id number] ZAIDA DUBOSE PT Pager: [phone] Physical Therapy Inpatient Rehabilitation Department * Yrn Ward MD - 08/03/2024 10:38 AM EST CV HOSPITALIST 2 - [facility] DAILY PROGRESS NOTE Page [phone] to reach a provider 04/04 Admit Date: [...] Compared to the overnight study by the php consultant fellow the impella position is stable. 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 [facility] 07/29/24 Conclusions: * One vessel coronary artery disease (LAD) * Mild pulmonary hypertension * Elevated pulmonary capillary wedge pressure * Successful stent insertion of the proximal LAD lesion * See Dual Antiplatelet (DAPT) Recommendations above * Successful impella placement for cardiogenic shock. Telemetry: I have personally reviewed and interpreted the telemetry from the last 24 hours. [facility] Assessment: ASSESSMENT: Korey Montoya is a 74 y.o. male w/ PMH of hypertension, HLD, and BPH who presents for chief concern of chest pain after being found to have ST elevations on EKG. Patient transferred via air ambulance to [facility] on 07/29 for LHC and LOW to [...] to be determined OT: PCP Alexia Mtz, ETCHED CIRCUIT PROCESSOR [phone] * Zaida Dubose, PT - 08/02/2024 2:08 PM EST Physical Therapy Evaluation Patient profile: Korey Montoya is a 74 y.o. male w/ PMH of hypertension, HLD, and BPH who presents for chief concern of chest pain after being found to have ST elevations on EKG. Patient transferred via air ambulance to [facility] on 07/29 for LHC and LOW to LAD for 100% occlusion Social History: Pt lives with his in a 1 level home with 2 NAOMI. 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 He [...] Total time: 37 (eval) minutes Time IN/OUT: 4917-4836 ZAIDA DUBOSE, PT Pager: [phone] Physical Therapy Inpatient Rehabilitation Department * Gagan [...] EKG. Patient transferred via air ambulance to [facility] on 07/29 for LHC and LOW to LAD for 100% occlusion. TTE showed apical akinesis and inferior hypokinesis with EF 20%. RHC showed elevated filling pressures. Impella placed and P-level 6 at time of transfer to [facility]. CI initially 1.97, improved to 2.2 [...] PCP: Alexia Mtz APRN PCP phone number: [phone] Date of Admission: 07/29/2024 ( Hospital Day 4 days ) Attending:Bridgette Stauffer MD ID: Korey Montoya is a 74 y.o. male w/ PMH of hypertension, HLD, and BPH on Hospital Day4 for chief concern of chest pain after being found to have ST elevations on EKG. Patient transferred via air ambulance to [facility] on 07/29 for LHC and LOW to [...] 07/29/24 1621 PHART 7.48* 7.44 7.38 7.37 [id number] 29* 29* 34* 36 PO2ART 71* 109* 141* 71* [id number] 20.6 19.4* 19.5* 20.4 VBG (Venous Blood Gas) Recent Labs 07/29/24 1401 PHVEN 7.30* PO2VEN 39 WVW2OAA 20.1* Mixed Venous Sat No results for input(s): M2MTWO0 in the last 168 hours. Objective: Vitals [...] 07/29/24 1621 PHART 7.48* 7.44 7.38 7.37 [id number] 29* 29* 34* 36 PO2ART 71* 109* 141* 71* [id number] 20.6 19.4* 19.5* 20.4 VBG (Venous Blood Gas) Recent Labs 07/29/24 1401 PHVEN 7.30* PO2VEN 39 JSB6XZW 20.1* Mixed Venous Sat No results for input(s): S7TJPQ4 in the last 168 hours. Microbiology: Microbiology Results (Last 30 days) Procedure Component Value Units Date/Time Blood culture [[id number]] Collected: 07/29/241607 Lab Status: Preliminary result Specimen: Blood, Venous Updated: 08/01/241700 Blood Culture No growth at 72 hours Blood culture [[id number]] Collected: 07/29/241607 Lab Status: Preliminary result Specimen: Blood, Venous Updated: 08/01/241700 Blood Culture No growth at 72 hours Imaging: Results for orders placed or performed during the hospital encounter of 07/29/24 XR Chest One View (Exam End: 07/29/2024 2:30 PM) Result Value WORKSTATION ID [id number] Impression 1. No pulmonary edema. 2. No pleural effusion. 3. No pneumothorax. Thank you for letting us participate in the care of this patient. If you are a health care provider and have any questions regarding this report, please contact the number below. For patients who have questions please contact the health rn intensive care unit that requested your imaging first. Electronically signed by: Chris Candelaria MD, [facility] ([phone]), at 07/29/2024 3:21 PM TTE ( 07/30/24) [...] Compared to the overnight study by the php consultant fellow the impella position is stable. [...] EKG. Patient transferred via air ambulance to [facility] on 07/29 for LHC and LOW to [...] MD Internal Medicine, PGY-1 Cardiology, [facility] 08/02/24 12:45 PM CARDIOLOGY STAFF NOTE [...] today). Transfer to floor. Krystal Parker MD, [facility], [facility]ASE Staff Student Life Vice President hogshead wrecker * Gagan Catherine MD - 08/01/2024 11:12 [...] EKG. Patient transferred via air ambulance to [facility] on 07/29 for LHC and LOW to LAD for 100% occlusion. TTE showed apical akinesis and inferior hypokinesis with EF 20%. RHC showed elevated filling pressures. Impella placed and P-level 6 at time of transfer to [facility]. CI initially 1.97, improved to 2.2 After impella. Received about 3 L of fluid during procedural course. Patient initially required norepinephrine 30, epinephrine 10, and vasopressin 0.04 for hemodynamic support, which was weaned upon arrival to [facility] to norepinephrine 20and levo 0.04 N [...] PCP: Alexia Mtz APRN PCP phone number: [phone] Date of Admission: 07/29/2024 ( Hospital Day 3 days ) Attending:Krystal Parker MD ID: Korey Montoya is a 74 y.o. male w/ PMH of hypertension, HLD, and BPH on Hospital Day3 for chief concern of chest pain after being found to have ST elevations on EKG. Patient transferred via air ambulance to [facility] on 07/29 for LHC and LOW to [...] 07/29/24 1621 PHART 7.48* 7.44 7.38 7.37 [id number] 29* 29* 34* 36 PO2ART 71* 109* 141* 71* FVU0DIV 20.6 19.4* 19.5* 20.4 VBG (Venous Blood Gas) Recent Labs 07/29/24 1401 PHVEN 7.30* PO2VEN 39 PHB2GYK 20.1* Mixed Venous Sat No results for input(s): E4BBNF4 in the last 168 hours. PA Catheter [...] 07/29/24 1621 PHART 7.48* 7.44 7.38 7.37 HTL5IPF 29* 29* 34* 36 PO2ART 71* 109* 141* 71* DXW9UKU 20.6 19.4* 19.5* 20.4 VBG (Venous Blood Gas) Recent Labs 07/29/24 1401 PHVEN 7.30* PO2VEN 39 EHH9UZX 20.1* Mixed Venous Sat No results for input(s): M1CTZS9 in the last 168 hours. Microbiology: Microbiology Results (Last 30 days) Procedure Component Value Units Date/Time Blood culture [[id number]] Collected: 07/29/24 160 Lab Status: Preliminary result Specimen: Blood, Venous Updated: 07/31/24 170 Blood Culture No growth at 48 hours Blood culture [[id number]] Collected: 07/29/24 1608 Lab Status: Preliminary result Specimen: Blood, Venous Updated: 07/31/24 1701 Blood Culture No growth at 48 hours Imaging: Results for orders placed or performed during the hospital encounter of 07/29/24 XR Chest One View (Exam End: 07/29/2024 2:30 PM) Result Value WORKSTATION ID [id number] Impression 1. No pulmonary edema. 2. No pleural effusion. 3. No pneumothorax. Thank you for letting us participate in the care of this patient. If you are a health care provider and have any questions regarding this report, please contact the number below. For patients who have questions please contact the health rn intensive care unit that requested your imaging first. Electronically signed by: Chris Candelaria MD, [facility] ([phone]), at 07/29/2024 3:21 PM TTE ( 07/30/24) [...] Compared to the overnight study by the php consultant fellow the impella position is stable. [...] EKG. Patient transferred via air ambulance to [facility] on 07/29 for LHC and LOW to [...] MD Internal Medicine, PGY-1 Cardiology, [facility] 08/01/24 7:13 AM CARDIOLOGY STAFF NOTE [...] with him; questions answered. Krystal Parker MD, [facility], [facility] Staff Student Life Vice President hogshead wrecker * Krystal Parker MD - 07/31/2024 1:06 [...] EKG. Patient transferred via air ambulance to [facility] on 07/29 for LHC and LOW to LAD for 100% occlusion. TTE showed apical akinesis and inferior hypokinesis with EF 20%. RHC showed elevated filling pressures. Impella placed and P-level 6 at time of transfer to [facility]. CI initially 1.97, improved to 2.2 After impella. Received about 3 L of fluid during procedural course. Patient initially required norepinephrine 30, epinephrine 10, and vasopressin 0.04 for hemodynamic support, which was weaned upon arrival to [facility] to norepinephrine 20and levo 0.04 N [...] PCP: Alexia Mtz APRN PCP phone number: [phone] Date of Admission: 07/29/2024 ( Hospital Day 2 days ) Attending:Krystal Parker MD ID: Korey Montoya is a 74 y.o. male w/ PMH of hypertension, HLD, and BPH on Hospital Day2 for chief concern of chest pain after being found to have ST elevations on EKG. Patient transferred via air ambulance to [facility] on 07/29 for LHC and LOW to [...] 0057 07/29/24 1621 PHART 7.44 7.38 7.37 [id number] 29* 34* 36 PO2ART 109* 141* 71* XFV8NSL 19.4* 19.5* 20.4 VBG (Venous Blood Gas) Recent Labs 07/29/24 1401 PHVEN 7.30* PO2VEN 39 EJQ9FKF 20.1* Mixed Venous Sat No results for input(s): T5DCYO2 in the last 168 hours. PA Catheter [...] 0057 07/29/24 1621 PHART 7.44 7.38 7.37 RAS0RLP 29* 34* 36 PO2ART 109* 141* 71* NUI8KLB 19.4* 19.5* 20.4 VBG (Venous Blood Gas) Recent Labs 07/29/24 1401 PHVEN 7.30* PO2VEN 39 VOE6XOM 20.1* Mixed Venous Sat No results for input(s): N7EUBH3 in the last 168 hours. Microbiology: Microbiology Results (Last 30 days) Procedure Component Value Units Date/Time Blood culture [[id number]] Collected: 07/29/241607 Lab Status: Preliminary result Specimen: Blood, Venous Updated: 07/30/241700 Blood Culture No Growth at 18-24 hrs. Blood culture [[id number]] Collected: 07/29/241607 Lab Status: Preliminary result Specimen: Blood, Venous Updated: 07/30/241700 Blood Culture No Growth at 18-24 hrs. Imaging: Results for orders placed or performed during the hospital encounter of 07/29/24 XR Chest One View (Exam End: 07/29/2024 2:30 PM) Result Value WORKSTATION ID [id number] Impression 1. No pulmonary edema. 2. No pleural effusion. 3. No pneumothorax. Thank you for letting us participate in the care of this patient. If you are a health care provider and have any questions regarding this report, please contact the number below. For patients who have questions please contact the health rn intensive care unit that requested your imaging first. Electronically signed by: Chris Candelaria MD, [facility] ([phone]), at 07/29/2024 3:21 PM TTE ( 07/30/24) [...] Compared to the overnight study by the php consultant fellow the impella position is stable. [...] EKG. Patient transferred via air ambulance to [facility] on 07/29 for LHC and LOW to [...] work to optimize volume status while continuing meyzceu-erjoaz-cmujlavosu therapies at this time. Obtain comprehensive TTE. [...] THESE DIAGNOSES BEING MANAGED BY [facility] TEAM: # Anterior STEMI, late-presenting # [...] EKG. Patient transferred via air ambulance to [facility] on 07/29 for LHC and LOW to LAD for 100% occlusion. TTE showed apical akinesis and inferior hypokinesis with EF 20%. RHC showed elevated filling pressures. Impella placed and P-level 6 at time of transfer to [facility]. CI initially 1.97, improved to 2.2 After impella. Received about 3 L of fluid during procedural course. Patient initially required norepinephrine 30, epinephrine 10, and vasopressin 0.04 for hemodynamic support, which was weaned upon arrival to [facility] to norepinephrine 20and levo 0.04 N [...] PCP: Yoel Artis APRN PCP phone number: [phone] Date of Admission: 07/29/2024 ( Hospital Day 1 day ) Attending:Aubree Silverio MD ID: Korey Montoya is a 74 y.o. male w/ PMH of hypertension, HLD, and BPH on Hospital Day1 for chief concern of chest pain after being found to have ST elevations on EKG. Patient transferred via air ambulance to [facility] on 07/29 for LHC and LOW to LAD for 100% occlusion. 24 Hour Events/Subjective: Yesterday: - Admitted to the [facility] - After his LHC, he demonstrated [...] 0057 07/29/24 1621 PHART 7.44 7.38 7.37 [id number] 29* 34* 36 PO2ART 109* 141* 71* QIO6XUI 19.4* 19.5* 20.4 VBG (Venous Blood Gas) Recent Labs 07/29/24 1401 PHVEN 7.30* PO2VEN 39 GMM8OKT 20.1* Lactate ( Last 12 hours) 1.3 >> 1.2 Mixed Venous Sat No results for input(s): A3ZHBT5 in the last 168 hours. PA Catheter [...] 0057 07/29/24 1621 PHART 7.44 7.38 7.37 XAX1SCU 29* 34* 36 PO2ART 109* 141* 71* EJP4PMF 19.4* 19.5* 20.4 VBG (Venous Blood Gas) Recent Labs 07/29/24 1401 PHVEN 7.30* PO2VEN 39 PCQ5FZG 20.1* Mixed Venous Sat No results for input(s): A9CWNN6 in the last 168 hours. Microbiology: Microbiology Results (Last 30 days) Procedure Component Value Units Date/Time Blood culture [[id number]] Collected: 07/29/24 1608 Lab Status: In process Specimen: Blood, Venous Updated: 07/29/24 1626 Blood culture [[id number]] Collected: 07/29/24 1608 Lab Status: In process Specimen: Blood, Venous Updated: 07/29/24 1615 Imaging: Results for orders placed or performed during the hospital encounter of 07/29/24 XR Chest One View (Exam End: 07/29/2024 2:30 PM) Result Value WORKSTATION ID [id number] Impression 1. No pulmonary edema. 2. No pleural effusion. 3. No pneumothorax. Thank you for letting us participate in the care of this patient. If you are a health care provider and have any questions regarding this report, please contact the number below. For patients who have questions please contact the health rn intensive care unit that requested your imaging first. Electronically signed by: Chris Candelaria MD, [facility] ([phone]), at 07/29/2024 3:21 PM Medications Scheduled Meds: [...] EKG. Patient transferred via air ambulance to [facility] on 07/29 for LHC and LOW to [...] EKG. Patient transferred via air ambulance to [facility] on 07/29 for LHC and LOW to [...] EKG. Was transferred via air ambulance to [facility] for further management and [facility] demo nstrated 100% occlusion. No significant RCA, LMCA, or LCX disease. LOW placed in LAD with some residual distal disease meriting placement of overlapping distal stent. TTE showed apical akinesis and inferior hypokinesis with EF 20%. RHC showed elevated filling pressures. Impella placed and P-level 6 at time of transfer to [facility]. CI initially 1.97, improved to 2.2 After impella. Received about 3 L of fluid during procedural course. Patient initially required norepinephrine, epinephrine, and vasopressin for hemodynamic support, which was weaned upon arrival to [facility] to norepinephrine 20 and levo 0.04 [...] (WRVU 4.57) performed by Brandan Mcgovern MD Replaced by [facility] ENDOSCOPY Significant Family History: Family History Problem [...] mouth. Past Week nitroGLYcerin (NITROLINGUAL) 400 mcg/spray [place], Non-Aerosol 1 spray to anus for proctalgia [...] 3.5 guiding catheter and a 3.5 Fr [place] [facility] [place] [address] 20 Mhz using Manual pullback. Imaging [...] atmospheres. A premounted 3.00 x 22 mm Woodruff Buchanan (LOW) was deployed with a maximum inflation [...] atmospheres. A premounted 3.00 x 08 mm Woodruff Buchanan (LOW) was deployed with a maximum inflation [...] a limited study performed by a fellow php consultant to evaluate for cardiogenic shock with [...] Compared to the overnight study by the php consultant fellow the impella position is stable. [...] EKG. Patient transferred via air ambulance to [facility] on 07/29 for LHC and LOW to [...] PCP: Yoel Artis APRN PCP phone number: [phone] Date of Admission: 07/29/2024 ( Hospital Day 0 days ) Attending:Aubree Silverio MD ID: Korey Montoya is a 74 y.o. male w/ PMH of hypertension, HLD, and BPH who presents for chief concern of chest pain after being found to have ST elevations on EKG. Patient transferred via air ambulance to [facility] on 07/29 for LHC and LOW to LAD for 100% occlusion. HPI: Korey Montoya is a 74 y.o. male w/ PMH of hypertension, HLD, and BPH who presents for chief concern of chest pain after being found to have ST elevations on EKG. Patient transferred via air ambulance to [facility] on 07/29 for LHC and LOW to [...] EKG. Was transferred via air ambulance to [facility] for further management and LHC demonstrated 100% [...] (WRVU 4.57) performed by Brandan Mcgovern MD Replaced by [facility] ENDOSCOPY Family History Family History Problem Relation [...] Blood Gas) No results for input(s): PHART, CEF3ZUL, PO2ART, HBF0GLZ, LACTATEVEN, BSD3ZKR, PFRATIOART2 in the last 168 hours. VBG (Venous Blood Gas) Recent Labs 07/29/24 1401 PHVEN 7.30* PO2VEN 39 YMM1IRI 20.1* Mixed Venous Sat No results for input(s): P1OKAX1 in the last 168 hours. PA Catheter [...] Blood Gas) No results for input(s): PHART, IVI7KON, PO2ART, AQA0JHI, LACTATEVEN, IJI3VXQ, PFRATIOART2 in the last 168 hours. VBG (Venous Blood Gas) Recent Labs 07/29/24 1401 PHVEN 7.30* PO2VEN 39 OUF0GSD 20.1* Mixed Venous Sat No results for input(s): D8BASC1 in the last 168 hours. Microbiology: Microbiology [...] EKG. Patient transferred via air ambulance to [facility] on 07/29 for LHC. Found to have 100% occlusion of LAD for which he underwent LOW to LAD.Otherwise no other significant vessel disease. Fahad is currently hemodynamically tenuous but improving upon admission to [facility], requiring hemodynamic support with norepinephrine and vasopressin at time of admission along with mechanical support with Impella device. Reassuringly, he demonstrates decreasing pressor requirements since admission to [facility], with epinephrine completely weaned. He does [...] MD Internal Medicine, PGY-3 Cardiology, [facility] 07/29/24 3:14 PM Cardiology Attending Note [...] MD, FACP, FACC Section of Cardiovascular Medicine [facility] Boiler Service Techniciansupply chain buyer [employer] [facility] This patient meets or has [...] to the planned procedure. Hand Hygiene: The supervisor color making did perform hand hygiene prior to arterial [...] ease. Good wave form. Ivan Hernandez MD Tenderizer Tender Associated attestation - Rolando Yeh MD - [...] Fahad was quite active prior to his SC. 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 Given parameters for home exercise. He follows a heart healthy diet and is not overweight. His lipids are wnl. Participation in an outpatient cardiac rehabilitation program at [facility] was discussed. Patient agrees to a [...] No Patient is insured through: Primary Insurance: [facility] MANAGED MEDICARE Payor: [facility] MANAGED MEDICARE / Plan: [facility] MANAGED MEDICARE COMPLETE / Product Type: [...] Date of Discharge: 08/04/2024 Gaby Wong RN, [phone] * Initial Assessments - Char Meza, OT - 08/03/2024 10:00 AM EST Occupational Therapy Evaluation Patient profile: Korey Montoya is a 74 y.o. male admitted on 07/29/2024 w/ PMH of hypertension, HLD, and BPH who presents for chief concern of chest pain after being found to have ST elevations onEKG. [place] [facility] [place] LHC and LOW to [facility] for 100% occlusion. Past Medical History: Diagnosis Date ADHD HLD (hyperlipidemia) HTN (hypertension) Tremor Past Surgical History: Procedure Laterality Date HAND SURGERY PRO COLONOSCOPY, REMV LESN, SNARE N/A 08/30/2023 COLONOSCOPY, POLYPECTOMY, REMOVAL LESION BY SNARE (WRVU 4.57) performed by Brandan Mcgovern MD Replaced by [facility] ENDOSCOPY Social History: Patient lives with his . Home Setup: 2 NAOMI to a 1 level home. DME: none Baseline ADL/Mobility: Independent with ADLs and IADLs. Enjoys walking. able assist as needed. Precautions/Special Considerations: Full code. Risk for falls. Subjective: I have access to an [employer] weight gym. (Educated to wait for MD [...] evaluation only Total Minutes, Occupational Therapy: 14 ([id number] (evaluation)) 2017 OT Evaluation Code Rationale: Diagnosis [...] and measurable assessment of functional outcome. Pager: [phone] Char Meza OT 08/03/2024 Occupational Therapy Rehabilitation [...] (Interventions Implemented as Appropriate) Flowsheets (Taken 08/01/2024 3865) Outcome Summary: A+O, no pain. NSR. 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 (Only good for 180 days) Any patient receiving care in [place] must abide by [place] law. The hierarchy for surrogate decision making [...] (i) The agent with financial power of staffing operations manager or a conservator appointed in accordance with [...] homeless or living in a alf (including now)?: No In the past 12 months has the [employer] gas, oil, or water Well threatened to shut off services in your [...] Home Address confirmed as: Mailing Address: [facility] [address] [address] Physical Address: [address] [place], [place] Social & Family Supports: All names [...] points: Addiction likely Health/Prescription Coverage: Primary Insurance: 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 CXR and EKG completed. Impella [...] Procedure Note: Patient Name: Korey Montoya : [id number] MR#: [id number] Case Date: 07/29/2024 Pan Washer Hand: Surgeons and Role: * Vahe Marvin MD - Primary * Susannah Watts PA - Physician Agile Test Lead Preoperative diagnosis: STEMI Postoperative diagnosis: * STEMI, LAD Artery * * Cardiogenic Shock * Procedure(s) performed: [facility] Coronary angiogram Stent insertion coronary IVUS coronary Venous line insert [facility] [place]to Colette Catheter Vascular closure device Ventricular assist [...] x 22 mm to 14 deonna JEISON Buchanan with LIZ 3 flow. Residual distal disease at distal stent, overlapping distal stent was inserted with 3.0 x 8 mm JEISON Buchanan. Systolic's in the 80's sustained. Patient re [...] AM EST Office Visit Cardiology at [address] [phone] Mushtaq Murphy, ETCHED CIRCUIT PROCESSOR Scheduled Orders Name Type Priority Associated Diagnoses [...] (with Diff) (08/04/2024 6:08 AM EST) Pathologist [facility] White Blood Cell 7.27 4.00 - 9.50 x10(3)/mc L 08/04/2024 6:39 AM [facility] Red Blood Cell 4.28(L) 4.58 - 5.54 x10(6)/mc L 08/04/2024 6:39 AM [facility] Hemoglobin 11.6(L) 13.7 - 16.5 g/dL 08/04/2024 6:39 AM [facility] Hematocrit 34.8(L) 40.5 - 48.5 % 08/04/2024 6:39 AM [facility] Mean Cell Volume 81.3(L) 82.9 - 93.1 fL 08/04/2024 6:39 AM [facility] Mean Cell Hemoglobin 27.1(L) 27.5 - 32.1 pg 08/04/2024 6:39 AM [facility] Mean Cell Hemoglobin Concentration 33.3 32.0 - 35.7 g/dL 08/04/2024 6:39 AM [facility] Platelet 178 145 - 357 x10(3)/mc L 08/04/2024 6:39 AM [facility] Mean Platelet Volume 10.6 7.6 - 12.9 fL 08/04/2024 6:39 AM [facility] RDW Standard Deviation 42.0 36.0 - 45.0 fL 08/04/2024 6:39 AM [facility] RDW coefficient of variation 14.3(H) 11.4 - 13.8 % 08/04/2024 6:39 AM [facility] NRBC% auto 0.0 % 08/04/2024 6:39 AM [facility] NRBC Absolute <0.01 <0.01 x10(3)/mc L 08/04/2024 6:39 AM [facility] Neutrophil % 72.1 % 08/04/2024 6:39 AM [facility] Neutrophil Absolute (ANC) - Automated 5.24 1.70 - 6.10 x10(3)/mc L 08/04/2024 6:39 AM [facility] Lymph % 16.8 % 08/04/2024 6:39 AM [facility] Lymph Absolute 1.22 0.90 - 3.20 x10(3)/mc L 08/04/2024 6:39 AM [facility] Monocyte % 8.5 % 08/04/2024 6:39 AM [facility] Monocyte Absolute 0.62 0.30 - 0.90 x10(3)/mc L 08/04/2024 6:39 AM [facility] Eos % 1.9 % 08/04/2024 6:39 AM [facility] Eos Absolute 0.14 0.00 - 0.40 x10(3)/mc L 08/04/2024 6:39 AM [facility] Basophil % 0.4 % 08/04/2024 6:39 AM [facility] Baso Absolute <0.04 0.00 - 0.10 x10(3)/mc L 08/04/2024 6:39 AM [facility] Immature Gran % 0.3 % 6:39 AM [facility] Immature Gran Absolute <0.04 0.00 - 0.04 x10(3)/mc L 08/04/2024 6:39 AM EST [facility] Blood VENOUS BLOOD SPECIMEN / Unknown Venipuncture / Unknown 08/04/2024 6:08 AM EST 08/04/2024 6:19 AM EST Bridgette Stauffer MD HEMATOLOGY ORDERABLE S Performing Organization Address City/[facility]/ZIP Co de Phone Number [facility] [place] [address] * Magnesium (08/04/2024 6:08 AM EST) Magnesium 0.85 0.69 - 1.07 mMol/L 08/04/2024 7:07 AM [facility] Blood VENOUS BLOOD SPECIMEN / Unknown Venipuncture / Unknown 08/04/2024 6:08 AM EST 08/04/2024 6:19 AM EST Bridgette Stauffer MD CHEMISTRY ORDERABLES Performing Organization Address City/[facility]/ZIP Co de Phone Number [facility] [place] [address] * Basic Metabolic Panel (08/04/2024 6:08 AM EST) Glucose 93 65 - 199 mg/dL 08/04/2024 7:07 AM [facility] Comment:Glucose Concentratio n >=200 mg/dL plus symptoms is consistent with Diabetes Mellitus. Blood Urea Nitrogen 14 10 - 20 mg/dL 08/04/2024 7:07 AM [facility] Creatinine 1.07 0.80 - 1.50 mg/dL 08/04/2024 7:07 AM [facility] Sodium 138 135 - 145 mMol/L 08/04/2024 7:07 AM [facility] Potassium 4.3 3.5 - 5.0 mMol/L 08/04/2024 7:07 AM [facility] Chloride 107 98 - 107 mMol/L 08/04/2024 7:07 AM [facility] Carbon Dioxide 23 22 - 31 [...] CHEMISTRY ORDERABLES [facility] [place] [address] * (ABNORMAL) CBC (with Diff) (08/03/2024 5:16 [...] 40.5 - 48.5 % 08/03/2024 5:29 AM [facility] Mean Cell Volume 81.0(L) 82.9 - 93.1 fL 08/03/2024 5:29 AM [facility] Mean Cell Hemoglobin 26.6(L) 27.5 - 32.1 pg 08/03/2024 5:29 AM [facility] Mean Cell Hemoglobin Concentration 32.9 32.0 - 35.7 g/dL 08/03/2024 5:29 AM [facility] Platelet 142(L) 145 - 357 x10(3)/mc L 08/03/2024 5:29 AM [facility] Mean Platelet Volume 10.5 7.6 - 12.9 fL 08/03/2024 5:29 AM [facility] RDW Standard Deviation 42.5 36.0 - 45.0 fL 08/03/2024 5:29 AM [facility] RDW coefficient of variation 14.2(H) 11.4 - 13.8 % 08/03/2024 5:29 AM [facility] NRBC% auto 0.0 % 08/03/2024 5:29 AM [facility] NRBC Absolute <0.01 <0.01 x10(3)/mc L 08/03/2024 5:29 AM [facility] Neutrophil % 75.2 % 08/03/2024 5:29 AM [facility] Neutrophil Absolute (ANC) - Automated 5.91 1.70 - 6.10 x10(3)/mc L 08/03/2024 5:29 AM [facility] Lymph % 13.4 % 08/03/2024 5:29 AM [facility] Lymph Absolute 1.05 0.90 - 3.20 x10(3)/mc L 08/03/2024 5:29 AM [facility] Monocyte % 9.0 % 08/03/2024 5:29 AM [facility] Monocyte Absolute 0.71 0.30 - 0.90 x10(3)/mc L 08/03/2024 5:29 AM [facility] Eos % 1.7 % 08/03/2024 5:29 AM [facility] Eos Absolute 0.13 0.00 - 0.40 x10(3)/mc L 08/03/2024 5:29 AM [facility] Basophil % 0.4 % 08/03/2024 5:29 AM [facility] Baso Absolute <0.04 0.00 - 0.10 x10(3)/mc L 08/03/2024 5:29 AM [facility] Immature Gran % 0.3 % 5:29 AM [facility] Immature Gran Absolute <0.04 0.00 - 0.04 x10(3)/mc L 08/03/2024 5:29 AM [facility] Blood VENOUS BLOOD SPECIMEN / Unknown Venipuncture / Unknown 08/03/2024 5:16 AM EST 08/03/2024 5:23 AM EST Bridgette Stauffer MD HEMATOLOGY ORDERABLE S [facility] [place] [address] * Magnesium (08/03/2024 5:16 AM EST) Magnesium 0.89 0.69 - 1.07 mMol/L 08/03/2024 5:56 AM [facility] Blood VENOUS BLOOD SPECIMEN / Unknown Venipuncture / Unknown 08/03/2024 5:16 AM EST 08/03/2024 5:23 AM EST Bridgette Stauffer MD CHEMISTRY ORDERABLES [facility] [place] [address] * (ABNORMAL) Basic Metabolic Panel (08/03/2024 5:16 AM EST) Glucose 98 65 - 199 mg/dL 08/03/2024 5:56 AM [facility] Comment:Glucose Concentratio n >=200 mg/dL plus symptoms is consistent with Diabetes Mellitus. Blood Urea Nitrogen 16 10 - 20 mg/dL 08/03/2024 5:56 AM [facility] Creatinine 0.85 0.80 - 1.50 mg/dL 08/03/2024 5:56 AM [facility] Sodium 137 135 - 145 mMol/L 08/03/2024 5:56 AM [facility] Potassium 4.5 3.5 - 5.0 mMol/L 08/03/2024 5:56 AM [facility] Chloride 106 98 - 107 mMol/L 08/03/2024 5:56 AM [facility] Carbon Dioxide 21(L) 22 - 31 mMol/L 08/03/2024 5:56 AM [facility] Anion Gap 10 5 - 15 mMol/L 08/03/2024 5:56 AM [facility] Calcium 8.3(L) 8.5 - 10.5 mg/dL 08/03/2024 5:56 AM [facility] Est Glomerular Filtration Rate - Male 92 mL/min/1. 73 m?? 08/03/2024 5:56 AM [facility] Comment: This patient's estimated GFR was [...] Stauffer MD CHEMISTRY ORDERABLES Performing Organization Address [facility]/ZIP Co de Phone Number [facility] [place] [address] * POC, GLUCOSE (08/02/2024 7:47 AM EST) [facility] Glucometer, POC 89 65 - 199 mg/dL 08/02/2024 7:47 AM EST [facility] Comment:Supplemental ranges: <140 mg/dL before meals <180 mg/dL all other times of the day. Blood CAPILLARY BLOOD / Unknown 08/02/2024 7:47 AM EST 08/02/2024 7:47 AM EST Krystal Parker MD POINT OF CARE TEST O RDERABLES Performing Organization Address [facility] Co de Phone Number [facility] [place] [address] * (ABNORMAL) CBC (with Diff) (08/02/2024 4:20 AM EST) [facility] White Blood Cell 8.51 4.00 - 9.50 x10(3)/mc L 08/02/2024 4:50 AM [facility] Red Blood Cell 4.41(L) 4.58 - 5.54 x10(6)/mc L 08/02/2024 4:50 AM [facility] Hemoglobin 12.2(L) 13.7 - 16.5 g/dL 08/02/2024 4:50 AM [facility] Hematocrit 35.8(L) 40.5 - 48.5 % 08/02/2024 4:50 AM [facility] Mean Cell Volume 81.2(L) 82.9 - 93.1 fL 08/02/2024 4:50 AM [facility] Mean Cell Hemoglobin 27.7 27.5 - 32.1 pg 08/02/2024 4:50 AM [facility] Mean Cell Hemoglobin Concentration 34.1 32.0 - 35.7 g/dL 08/02/2024 4:50 AM [facility] Platelet 111(L) 145 - 357 x10(3)/mc L 08/02/2024 4:50 AM [facility] Mean Platelet Volume 11.1 7.6 - 12.9 fL 08/02/2024 4:50 AM [facility] RDW Standard Deviation 41.9 36.0 - 45.0 fL 08/02/2024 4:50 AM [facility] RDW coefficient of variation 14.1(H) 11.4 - 13.8 % 08/02/2024 4:50 AM [facility] NRBC% auto 0.0 % 08/02/2024 4:50 AM [facility] NRBC Absolute <0.01 <0.01 x10(3)/mc L 08/02/2024 4:50 AM [facility] Neutrophil % 77.7 % 08/02/2024 4:50 AM [facility] Neutrophil Absolute (ANC) - Automated 6.62(H) 1.70 - 6.10 x10(3)/mc L 08/02/2024 4:50 AM [facility] Lymph % 11.9 % 08/02/2024 4:50 AM [facility] Lymph Absolute 1.01 0.90 - 3.20 x10(3)/mc L 08/02/2024 4:50 AM [facility] Monocyte % 8.2 % 08/02/2024 4:50 AM [facility] Monocyte Absolute 0.70 0.30 - 0.90 x10(3)/mc L 08/02/2024 4:50 AM [facility] Eos % 1.4 % 08/02/2024 4:50 AM [facility] Eos Absolute 0.12 0.00 - 0.40 x10(3)/mc L 08/02/2024 4:50 AM EST [facility] Basophil % 0.4 % 08/02/2024 4:50 AM [facility] Baso Absolute <0.04 0.00 - 0.10 x10(3)/mc L 08/02/2024 4:50 AM [facility] Immature Gran % 0.4 % 4:50 AM [facility] Immature Gran Absolute <0.04 0.00 - 0.04 x10(3)/mc L 08/02/2024 4:50 AM [facility] Blood VENOUS BLOOD SPECIMEN / Unknown Venipuncture / Unknown 08/02/2024 4:20 AM EST 08/02/2024 4:37 AM EST Bridgette Stauffer MD HEMATOLOGY ORDERABLE S Performing Organization Address City/[facility]/ZIP Co de Phone Number [facility] [place] [address] * Magnesium (08/02/2024 4:20 AM EST) Magnesium 0.79 0.69 - 1.07 mMol/L 08/02/2024 5:06 AM [facility] Blood VENOUS BLOOD SPECIMEN / Unknown Venipuncture / Unknown 08/02/2024 4:20 AM EST 08/02/2024 4:37 AM EST Bridgette Stauffer MD CHEMISTRY ORDERABLES [facility] [place] [address] * (ABNORMAL) Basic Metabolic Panel (08/02/2024 4:20 AM EST) Glucose 110 65 - 199 mg/dL 08/02/2024 5:06 AM [facility] Comment:Glucose Concentratio n >=200 mg/dL plus symptoms is consistent with Diabetes Mellitus. Blood Urea Nitrogen 12 10 - 20 mg/dL 08/02/2024 5:06 AM [facility] Creatinine 0.90 0.80 - 1.50 mg/dL 08/02/2024 5:06 AM [facility] Sodium 139 135 - 145 mMol/L 08/02/2024 5:06 AM [facility] Potassium 4.0 3.5 - 5.0 mMol/L 08/02/2024 5:06 AM [facility] Chloride 108(H) 98 - 107 mMol/L 08/02/2024 5:06 AM [facility] Carbon Dioxide 23 22 - 31 mMol/L 08/02/2024 5:06 AM [facility] Anion Gap 8 5 - 15 mMol/L 08/02/2024 5:06 AM [facility] Calcium 8.1(L) 8.5 - 10.5 mg/dL 08/02/2024 5:06 AM [facility] Est Glomerular Filtration Rate - Male 91 mL/min/1. 73 m?? 08/02/2024 5:06 AM [facility] Comment: This patient's estimated GFR was [...] CHEMISTRY ORDERABLES [facility] [place] [address] * Potassium (08/01/2024 8:39 PM EST) Potassium 4.0 3.5 - 5.0 mMol/L 08/01/2024 9:21 PM EST [facility] Blood VENOUS BLOOD SPECIMEN / Unknown Venipuncture / Unknown 08/01/2024 8:39 PM EST 08/01/2024 8:51 PM EST Aubree Silverio MD CHEMISTRY ORDERABL ES Performing Organization Address City/[facility]/ZIP Co de Phone Number [facility] [place] [address] * POC, GLUCOSE (08/01/2024 8:35 PM EST) Glucometer, POC 112 65 - 199 mg/dL 08/01/2024 8:36 PM EST [facility] Comment:Supplemental ranges: <140 mg/dL before meals <180 mg/dL all other times of the day. Blood CAPILLARY BLOOD / Unknown 08/01/2024 8:35 PM EST 08/01/2024 8:36 PM EST Krystal Parker MD POINT OF CARE TEST O RDKAY Performing Organization Address [facility] Co de Phone Number [facility] [place] [address] * POC, GLUCOSE (08/01/2024 4:55 PM EST) Glucometer, POC 99 65 - 199 mg/dL 08/01/2024 4:56 PM EST [facility] Comment:Supplemental ranges: <140 mg/dL before meals <180 mg/dL all other times of the day. Blood CAPILLARY BLOOD / Unknown 08/01/2024 4:55 PM EST 08/01/2024 4:56 PM EST Krystal Parker MD POINT OF CARE TEST O RDKAY Performing Organization Address City/[facility]/ZIP Co de Phone Number [facility] [place] [address] * POC, GLUCOSE (08/01/2024 12:42 PM EST) [...] O RDERASHAY [facility] [place] [address] * (ABNORMAL) Cooximetry, POC (08/01/2024 10:45 AM EST) Pathologist [facility] pO2, Coox 32 mmHg 08/01/2024 10:48 AM [facility] Hemoglobin, Coox 12.9(L) 13.7 - 16.5 g/dL 08/01/2024 10:48 AM [facility] Oxyhemoglobin, Coox 66.7 % 08/01/2024 10:48 AM [facility] Carboxyhemoglo bin, Coox 1.1 % 08/01/2024 10:48 AM [facility] Comment: Nonsmokers: 0.5-1.5% COHB ?? Smokers: Variable ??but usually less than 10% ?? Toxic: 20-30% COHB ?? Lethal: Greater than 60% COHB Methemoglobin, Coox 0.3 <=1.5 % 08/01/2024 10:48 AM [facility] Blood (Mixed Venous) 08/01/2024 10:45 AM EST 08/01/2024 10:48 AM EST Krystal Parker MD POINT OF CARE TEST O RDERABLES Performing Organization Address City/[facility]/ZIP Co de Phone Number [facility] [place] [address] * Potassium (08/01/2024 8:20 AM EST) Pathologist [facility] Potassium 4.0 3.5 - 5.0 mMol/L 08/01/2024 10:17 AM EST [facility] Blood ARTERIAL BLOOD / Unknown Venipuncture / Unknown 08/01/2024 8:20 AM EST 08/01/2024 8:30 AM EST Aubree Silverio MD CHEMISTRY ORDERABL ES Performing Organization Address City/[facility]/ZIP Co de Phone Number [facility] [place] [address] * POC, GLUCOSE (08/01/2024 7:44 AM EST) [facility] Glucometer, POC 86 65 - 199 mg/dL 08/01/2024 7:44 AM EST [facility] Comment:Supplemental ranges: <140 mg/dL before meals <180 mg/dL all other times of the day. Blood CAPILLARY BLOOD / Unknown 08/01/2024 7:44 AM EST 08/01/2024 7:44 AM EST Krystal Parker MD POINT OF CARE TEST O RDERABLES Performing Organization Address City/[facility]/ZIP Co de Phone Number [facility] [place] [address] * (ABNORMAL) CBC (with Diff) (08/01/2024 4:18 AM EST) [facility] White Blood Cell 8.51 4.00 - 9.50 x10(3)/mc L 08/01/2024 4:53 AM EST [facility] Red Blood Cell 4.12(L) 4.58 - 5.54 x10(6)/mc L 08/01/2024 4:53 AM EST [facility] Hemoglobin 11.2(L) 13.7 - 16.5 g/dL 08/01/2024 4:53 AM EST [facility] Hematocrit 33.8(L) 40.5 - 48.5 % 08/01/2024 4:53 AM [facility] Mean Cell Volume 82.0(L) 82.9 - 93.1 fL 08/01/2024 4:53 AM [facility] Mean Cell Hemoglobin 27.2(L) 27.5 - 32.1 pg 08/01/2024 4:53 AM [facility] Mean Cell Hemoglobin Concentration 33.1 32.0 - 35.7 g/dL 08/01/2024 4:53 AM [facility] Platelet 94(L) 145 - 357 x10(3)/mc L 08/01/2024 4:53 AM [facility] Mean Platelet Volume 10.9 7.6 - 12.9 fL 08/01/2024 4:53 AM [facility] RDW Standard Deviation 44.2 36.0 - 45.0 fL 08/01/2024 4:53 AM [facility] RDW coefficient of variation 14.7(H) 11.4 - 13.8 % 08/01/2024 4:53 AM [facility] NRBC% auto 0.0 % 08/01/2024 4:53 AM [facility] NRBC Absolute <0.01 <0.01 x10(3)/mc L 08/01/2024 4:53 AM [facility] Neutrophil % 82.7 % 08/01/2024 4:53 AM [facility] Neutrophil Absolute (ANC) - Automated 7.04(H) 1.70 - 6.10 x10(3)/mc L 08/01/2024 4:53 AM [facility] Lymph % 8.6 % 08/01/2024 4:53 AM [facility] Lymph Absolute 0.73(L) 0.90 - 3.20 x10(3)/mc L 08/01/2024 4:53 AM [facility] Monocyte % 7.6 % 08/01/2024 4:53 AM [facility] Monocyte Absolute 0.65 0.30 - 0.90 x10(3)/mc L 08/01/2024 4:53 AM [facility] Eos % 0.5 % 08/01/2024 4:53 AM [facility] Eos Absolute 0.04 0.00 - 0.40 x10(3)/mc L 08/01/2024 4:53 AM [facility] Basophil % 0.2 % 08/01/2024 4:53 AM [facility] Baso Absolute <0.04 0.00 - 0.10 x10(3)/mc L 08/01/2024 4:53 AM [facility] Immature Gran % 0.4 % 4:53 AM [facility] Immature Gran Absolute <0.04 0.00 - 0.04 x10(3)/mc L 08/01/2024 4:53 AM [facility] Blood VENOUS BLOOD SPECIMEN / Unknown Venipuncture / Unknown 08/01/2024 4:18 AM EST 08/01/2024 4:29 AM EST Bridgette Stauffer MD HEMATOLOGY ORDERABLE S [facility] [place] [address] * Magnesium (08/01/2024 4:18 AM EST) Magnesium 0.74 0.69 - 1.07 mMol/L 08/01/2024 5:00 AM [facility] Blood VENOUS BLOOD SPECIMEN / Unknown Venipuncture / Unknown 08/01/2024 4:18 AM EST 08/01/2024 4:29 AM EST Bridgette Stauffer MD CHEMISTRY ORDERABLES [facility] [place] [address] * (ABNORMAL) Basic Metabolic Panel (08/01/2024 4:18 AM EST) Glucose 107 65 - 199 mg/dL 08/01/2024 5:00 AM [facility] Comment:Glucose Concentratio n >=200 mg/dL plus symptoms is consistent with Diabetes Mellitus. Blood Urea Nitrogen 8(L) 10 - 20 mg/dL 08/01/2024 5:00 AM [facility] Creatinine 0.82 0.80 - 1.50 mg/dL 08/01/2024 5:00 AM [facility] Sodium 137 135 - 145 mMol/L 08/01/2024 5:00 AM [facility] Potassium 3.9 3.5 - 5.0 mMol/L 08/01/2024 5:00 AM [facility] Chloride 108(H) 98 - 107 mMol/L 08/01/2024 5:00 AM [facility] Carbon Dioxide 21(L) 22 - 31 mMol/L 08/01/2024 5:00 AM [facility] Anion Gap 8 5 - 15 mMol/L 08/01/2024 5:00 AM [facility] Calcium 7.7(L) 8.5 - 10.5 mg/dL 08/01/2024 5:00 AM [facility] Est Glomerular Filtration Rate - Male 93 mL/min/1. 73 m?? 08/01/2024 5:00 AM [facility] Comment: This patient's estimated GFR was [...] Stauffer MD CHEMISTRY ORDERABLES Performing Organization Address [facility] de Phone Number [facility] [place] [address] * POC, GLUCOSE (07/31/2024 8:41 PM EST) [facility] Signature Glucometer, POC 73 65 - 199 mg/dL 07/31/2024 8:41 PM EST [facility] Comment:Supplemental ranges: <140 mg/dL before meals <180 mg/dL all other times of the day. Blood CAPILLARY BLOOD / Unknown 07/31/2024 8:41 PM EST 07/31/2024 8:41 PM EST Krystal Parker MD POINT OF CARE TEST O RDERABLES Performing Organization Address [facility] de Phone Number [facility] [place] [address] * CARDIAC CATHETERIZATION (07/31/2024 5:53 PM EST) Anatomical Region Laterality Modality Other Narrative 08/01/2024 12:37 PM EST ?[facility] ? Cardiac Catheterization/Intervention Report ? Patient Name: Korey MontoyaToby ? Procedure Date: 07/31/2024 ? A #: [id number] ? Primary Physician: Maldonado Luis ? Case #: [id number] ? File Name: [id number] ? Catheterization Order Number: [id number] ? [facility] ? Final Report [place], [place] ? Patient Name: ? Korey P. Montoya ?ID#: ?[id number] ? : ?1950 ? Procedure Date: ? [...] ? Comments: ?Impella removed from the right SPEECH LANGUAGE PATHOLOGIST ASSISTANT with deployment of Perclose and ?Angioseal. ??Good hemostasis. ?The attending physician was present for the entire procedure. ?Dr. Maldonado Lusi M.D. was present during the moderate sedation ?intraservice time as documented by the sedation nurse. ??Case time = 00:35. ?Dr. Maldonado Luis M.D. performed the vascular closure device and ?ventricular assist device removal. ? Maldonado Luis M.D. ? Electronically Signed by: Maldonado Luis M.D. ? Report Finalized: 08/01/2024 ??12:31 ? Procedure Note Maldonado Luis MD - 08/01/2024 [facility] Cardiac Catheterization/Intervention Report Patient Name: Korey MontoyaToby Procedure Date: 07/31/2024 A #: [id number] Primary Physician: Maldonado Luis Case #: [id number] File Name: [id number] Catheterization Order Number: [id number] [facility] FinalReport [place], [place] Patient Name: Korey Montoya ID#:[id number] :1950 Procedure Date: July 31, 2024 Case [...] as ASA Class IV. The [facility] clinical frailtyscale is 4: Vulnerable. Diagnostic Tests: [...] procedures. Comments: Impella removed from the right SPEECH LANGUAGE PATHOLOGIST ASSISTANT with deployment of Perclose and Angioseal. Good [...] CARE TEST O RDERABLES Performing Organization Address City/State/[facility] Co de Phone Number [facility] [place] [address] * (ABNORMAL) Blood Gas, Arterial POC (07/31/2024 8:29 AM EST) pH, Arterial 7.48(H) 7.35 - 7.45 07/31/2024 8:30 AM [facility] PCO2, Arterial 29(L) 35 - 45 mmHg 07/31/2024 8:30 AM [facility] PO2, Arterial 71(L) 85 - 104 mmHg 07/31/2024 8:30 AM [facility] Bicarbonate, Arterial 20.6 20.0 - 26.0 mmol/L 07/31/2024 8:30 AM [facility] Base Excess, Arterial -3.0 -3.0 - 3.0 mmol/L 07/31/2024 8:30 AM [facility] Hemoglobin, Arterial 12.3(L) 13.7 - 16.5 g/dL 07/31/2024 8:30 AM [facility] Oxyhemoglobin, Arterial 94.4 94.0 - 97.0 % 07/31/2024 8:30 AM [facility] Carboxyhemoglobin , Arterial 0.7 % 07/31/2024 8:30 AM [facility] Comment: Nonsmokers: 0.5-1.5% COHB ?? Smokers: Variable ??but usually less than 10% ?? Toxic: 20-30% COHB ?? Lethal: Greater than 60% COHB Methemoglobin, Arterial 0.3 <=1.5 % 07/31/2024 8:30 AM [facility] Sodium, Arterial 138 135 - 145 mmol/L 07/31/2024 8:30 AM [facility] Potassium, Arterial 3.5 3.5 - 5.0 mmol/L 07/31/2024 8:30 AM [facility] Chloride, Arterial 109(H) 98 - 107 mmol/L 07/31/2024 8:30 AM [facility] Lactate, Arterial 0.8 0.5 - 2.2 mmol/L 07/31/2024 8:30 AM [facility] Fraction of Inspired Oxygen 21 % 07/31/2024 8:30 AM [facility] PF Ratio 338 Ratio 07/31/2024 8:30 AM [facility] Comment:PF ratio calculated using the non-temperature corrected pO2 result. IONIZED CALCIUM, ARTERIAL 1.08(L) 1.15 - 1.33 mmol/L 07/31/2024 8:30 AM [facility] Glucose, Arterial 86 65 - 199 mg/dL 07/31/2024 8:30 AM EST [facility] Comment:Glucose Concentratio n >=200 mg/dL plus symptoms is consistent with Diabetes Mellitus. Blood ARTERIAL BLOOD / Unknown 07/31/2024 8:29 AM EST 07/31/2024 8:30 AM EST Krystal Parker MD POINT OF CARE TEST O RDERABLES [facility] [place] [address] * POC, GLUCOSE (07/31/2024 7:47 AM EST) [...] O RDERABLES [facility] [place] [address] * (ABNORMAL) CBC (with Diff) (07/31/2024 1:08 AM EST) [facility] White Blood Cell 10.25(H) 4.00 - 9.50 x10(3)/mc L 07/31/2024 1:28 AM [facility] Red Blood Cell 4.13(L) 4.58 - 5.54 x10(6)/mc L 07/31/2024 1:28 AM [facility] Hemoglobin 11.2(L) 13.7 - 16.5 g/dL 07/31/2024 1:28 AM [facility] Hematocrit 33.9(L) 40.5 - 48.5 % 07/31/2024 1:28 AM [facility] Mean Cell Volume 82.1(L) 82.9 - 93.1 fL 07/31/2024 1:28 AM [facility] Mean Cell Hemoglobin 27.1(L) 27.5 - 32.1 pg 07/31/2024 1:28 AM [facility] Mean Cell Hemoglobin Concentration 33.0 32.0 - 35.7 g/dL 07/31/2024 1:28 AM [facility] Platelet 109(L) 145 - 357 x10(3)/mc L 07/31/2024 1:28 AM [facility] Mean Platelet Volume 10.4 7.6 - 12.9 fL 07/31/2024 1:28 AM [facility] RDW Standard Deviation 45.1(H) 36.0 - 45.0 fL 07/31/2024 1:28 AM [facility] RDW coefficient of variation 15.1(H) 11.4 - 13.8 % 07/31/2024 1:28 AM [facility] NRBC% auto 0.0 % 07/31/2024 1:28 AM [facility] NRBC Absolute <0.01 <0.01 x10(3)/mc L 07/31/2024 1:28 AM [facility] Neutrophil % 79.7 % 07/31/2024 1:28 AM [facility] Neutrophil Absolute (ANC) - Automated 8.17(H) 1.70 - 6.10 x10(3)/mc L 07/31/2024 1:28 AM [facility] Lymph % 12.8 % 07/31/2024 1:28 AM [facility] Lymph Absolute 1.31 0.90 - 3.20 x10(3)/mc L 07/31/2024 1:28 AM [facility] Monocyte % 6.9 % 07/31/2024 1:28 AM [facility] Monocyte Absolute 0.71 0.30 - 0.90 x10(3)/mc L 07/31/2024 1:28 AM [facility] Eos % 0.1 % 07/31/2024 1:28 AM [facility] Eos Absolute <0.04 0.00 - 0.40 x10(3)/mc L 07/31/2024 1:28 AM [facility] Basophil % 0.3 % 07/31/2024 1:28 AM [facility] Baso Absolute <0.04 0.00 - 0.10 x10(3)/mc L 07/31/2024 1:28 AM [facility] Immature Gran % 0.2 % 1:28 AM EST [facility] Immature Gran Absolute <0.04 0.00 - 0.04 x10(3)/mc L 07/31/2024 1:28 AM [facility] Blood VENOUS BLOOD SPECIMEN / Unknown Venipuncture / Unknown 07/31/2024 1:08 AM EST 07/31/2024 1:18 AM EST Bridgette Stauffer MD HEMATOLOGY ORDERABLE S Performing Organization Address [facility] Co de Phone Number [facility] [place] [address] * Magnesium (07/31/2024 1:08 AM EST) Pathologist [facility] Magnesium 0.89 0.69 - 1.07 mMol/L 07/31/2024 1:46 AM [facility] Blood VENOUS BLOOD SPECIMEN / Unknown Venipuncture / Unknown 07/31/2024 1:08 AM EST 07/31/2024 1:18 AM EST Bridgette Stauffer MD CHEMISTRY ORDERABLES Performing Organization Address City/[facility] Co de Phone Number [facility] [place] [address] * (ABNORMAL) Basic Metabolic Panel (07/31/2024 1:08 AM EST) Pathologist [facility] Glucose 97 65 - 199 mg/dL 07/31/2024 1:46 AM [facility] Comment:Glucose Concentratio n >=200 mg/dL plus symptoms is consistent with Diabetes Mellitus. Blood Urea Nitrogen 11 10 - 20 mg/dL 07/31/2024 1:46 AM [facility] Creatinine 0.96 0.80 - 1.50 mg/dL 07/31/2024 1:46 AM [facility] Sodium 140 135 - 145 mMol/L 07/31/2024 1:46 AM [facility] Potassium 4.1 3.5 - 5.0 mMol/L 07/31/2024 1:46 AM EST [facility] Chloride 110(H) 98 - 107 mMol/L 07/31/2024 1:46 AM EST [facility] Carbon Dioxide 24 22 - 31 mMol/L 07/31/2024 1:46 AM [facility] Anion Gap 6 5 - 15 mMol/L 07/31/2024 1:46 AM [facility] Calcium 7.7(L) 8.5 - 10.5 mg/dL 07/31/2024 1:46 AM [facility] Est Glomerular Filtration Rate - Male 84 mL/min/1. 73 m?? 07/31/2024 1:46 AM [facility] Comment: This patient's estimated GFR was [...] CHEMISTRY ORDERABLES [facility] [place] [address] * (ABNORMAL) Hepatic Function Panel (07/31/2024 1:08 [...] 40 - 130 unit/L 07/31/2024 1:46 AM [facility] Bilirubin, Total 0.4 <=1.3 mg/dL 07/31/2024 1:46 AM [facility] Bilirubin, Direct <0.2 0.0 - 0.3 mg/dL 07/31/2024 1:46 AM [facility] Protein, Total 5.0(L) 6.1 - 8.0 g/dL 07/31/2024 1:46 AM [facility] Blood VENOUS BLOOD SPECIMEN / Unknown Venipuncture / Unknown 07/31/2024 1:08 AM EST 07/31/2024 1:18 AM EST Krystal Parker MD CHEMISTRY ORDERABLES Performing Organization Address City/[facility] Co de Phone Number [facility] [place] [address] * POC, GLUCOSE (07/30/2024 8:03 PM EST) [...] O RDERABLES Performing Organization Address City/[facility]/ZIP Co de Phone Number [facility] [place] [address] * Potassium (07/30/2024 8:03 PM EST) Potassium 3.8 3.5 - 5.0 mMol/L 07/30/2024 9:13 PM EST [facility] Blood VENOUS BLOOD SPECIMEN / Unknown Venipuncture / Unknown 07/30/2024 8:03 PM EST 07/30/2024 8:22 PM EST Aubree Silverio MD CHEMISTRY ORDERABL ES Performing Organization Address [facility]/ZIP Co de Phone Number [facility] [place] [address] * POC, GLUCOSE (07/30/2024 6:23 PM EST) Glucometer, POC 93 65 - 199 mg/dL 07/30/2024 6:24 PM EST [facility] Comment:Supplemental ranges: <140 mg/dL before meals <180 mg/dL all other times of the day. Blood CAPILLARY BLOOD / Unknown 07/30/2024 6:23 PM EST 07/30/2024 6:24 PM EST Krystal Parker MD POINT OF CARE TEST O JOSH Performing Organization Address [facility] Co de Phone Number [facility] [place] [address] * POC, GLUCOSE (07/30/2024 5:08 PM EST) Glucometer, POC 78 65 - 199 mg/dL 07/30/2024 5:08 PM EST [facility] Comment:Supplemental ranges: <140 mg/dL before meals <180 mg/dL all other times of the day. Blood CAPILLARY BLOOD / Unknown 07/30/2024 5:08 PM EST 07/30/2024 5:08 PM EST Krystal Parker MD POINT OF CARE TEST O JOSH Performing Organization Address [facility] Co de Phone Number [facility] [place] [address] * (ABNORMAL) Phosphorus (07/30/2024 3:08 PM EST) Phosphorus 2.1(L) 2.5 - 4.5 mg/dL 07/30/2024 3:58 PM EST [facility] Blood VENOUS BLOOD SPECIMEN / Unknown Venipuncture / Unknown 07/30/2024 3:08 PM EST 07/30/2024 3:12 PM EST Aubree Silverio MD CHEMISTRY ORDERABL ES Performing Organization Address [facility]/ZIP Co de Phone Number [facility] [place] [address] * Magnesium (07/30/2024 3:08 PM EST) Magnesium 0.90 0.69 - 1.07 mMol/L 07/30/2024 3:58 PM EST [facility] Blood VENOUS BLOOD SPECIMEN / Unknown Venipuncture / Unknown 07/30/2024 3:08 PM EST 07/30/2024 3:12 PM EST Aubree Silverio MD CHEMISTRY ORDERABL ES Performing Organization Address City/[facility]/ZIP Co de Phone Number [facility] [place] [address] * (ABNORMAL) Basic Metabolic Panel (07/30/2024 3:08 PM EST) Glucose 105 65 - 199 mg/dL 07/30/2024 4:17 PM [facility] Comment:Glucose Concentratio n >=200 mg/dL plus symptoms is consistent with Diabetes Mellitus. Blood Urea Nitrogen 13 10 - 20 mg/dL 07/30/2024 4:17 PM EST [facility] Creatinine 1.01 0.80 - 1.50 mg/dL 07/30/2024 4:17 PM [facility] Sodium 141 135 - 145 mMol/L 07/30/2024 4:17 PM [facility] Potassium 3.4(L) 3.5 - 5.0 mMol/L 07/30/2024 4:17 PM [facility] Chloride 109(H) 98 - 107 mMol/L 07/30/2024 4:17 PM [facility] Carbon Dioxide 21(L) 22 - 31 [...] ES [facility] [place] [address] * ECHO LMTD W CONTRAST W LMTD SPEC DOPP COLOR DOPP (07/30/2024 11:42 AM EST) Anatomical Region Laterality Modality Cardiac Other 07/30/2024 10:2 2 AM EST Narrative 07/30/2024 12:34 PM EST [address] [place] [address] ? Echocardiogram Report Name: KOREY MONTOYA ? Study Date: 07/30/2024 10:22 AMBP: 124/66 mmHg : 1950 ? Height: 168 cm ? Account: [id number] Age: 74 yrs ? Weight: 65 kg Gender: Male ?BSA: 1.7 m2 Ordering Physician: Aubree Silverio MD Referring Physician: CHAPARRO FERRERA Performed By: OMERO Millan Reason For Study: ST elevation myocardial infarction involving left anterior descending (LAD) coronary artery Interpreting Fellow: Ivan Hernandez. Exam Location: [facility]. Interpretation Summary Left ventricle [...] Compared to the overnight study by the php consultant fellow the impella position is stable. 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 Procedure Limited - 49042. Image enhancement Definity was used for both [...] Procedure Note Kathleen Banda MD - 07/30/[address] [place] [id number] Echocardiogram Report Name: KOREY MONTOYA Kyrie Study Date: 410:22 AMBP: 124/66 mmHg : 1950 Height: 168 cm Account: [id number] Age: 74 yrs Weight: 65 kg Gender: Male BSA: 1.7 m2 Ordering Physician: Aubree Silverio MD Referring Physician: CHAPRARO FERRERA Performed By: OMERO Millan Reason For Study: ST elevation myocardial infarction involving leftanterior descending (LAD) coronary artery Interpreting Fellow: Ivan Hernandez. Exam Location: [facility]. Interpretation Summary Left ventricle [...] Compared to the overnight study by the php consultant fellow the impella positionis stable. The global left ventricular systolic function has improvedpredominantly via recruitment outside the LAD territory which remains akinetic. Procedure Limited - 42933. Image enhancement Definity was used for both [...] 65 - 199 mg/dL 07/30/2024 11:17 AM [facility] Comment:Supplemental ranges: <140 mg/dL before meals <180 mg/dL all other times of the day. Blood CAPILLARY BLOOD / Unknown 07/30/2024 11:17 AM EST 07/30/2024 11:17 AM EST Aubree Silverio MD POINT OF CARE TEST ORDERABLES Performing Organization Address City/State/[facility] Co de Phone Number [facility] [place] [address] * (ABNORMAL) Blood Gas, Arterial POC (07/30/2024 8:16 AM EST) pH, Arterial 7.44 7.35 - 7.45 07/30/2024 8:17 AM [facility] PCO2, Arterial 29(L) 35 - 45 mmHg 07/30/2024 8:17 AM [facility] PO2, Arterial 109(H) 85 - 104 mmHg 07/30/2024 8:17 AM [facility] Bicarbonate, Arterial 19.4(L) 20.0 - 26.0 mmol/L 07/30/2024 8:17 AM [facility] Base Excess, Arterial -4.7(L) -3.0 - 3.0 mmol/L 07/30/2024 8:17 AM [facility] Hemoglobin, Arterial 12.2(L) 13.7 - 16.5 g/dL 07/30/2024 8:17 AM [facility] Oxyhemoglobin, Arterial 97.1(H) 94.0 - 97.0 % 07/30/2024 8:17 AM [facility] Carboxyhemoglob in, Arterial 1.0 % 07/30/2024 8:17 AM [facility] Comment: Nonsmokers: 0.5-1.5% COHB ?? Smokers: Variable ??but usually less than 10% ?? Toxic: 20-30% COHB ?? Lethal: Greater than 60% COHB Methemoglobin, Arterial 0.1 <=1.5 % 07/30/2024 8:17 AM [facility] Sodium, Arterial 132(L) 135 - 145 mmol/L 07/30/2024 8:17 AM [facility] Potassium, Arterial 3.9 3.5 - 5.0 mmol/L 07/30/2024 8:17 AM [facility] Chloride, Arterial 105 98 - 107 mmol/L 07/30/2024 8:17 AM [facility] Lactate, Arterial 1.2 0.5 - 2.2 mmol/L 07/30/2024 8:17 AM [facility] Fraction of Inspired Oxygen 21 % 07/30/2024 8:17 AM [facility] PF Ratio 519 Ratio 07/30/2024 8:17 AM [facility] Comment:PF ratio calculated using the non-temperature corrected pO2 result. IONIZED CALCIUM, ARTERIAL 1.15 1.15 - 1.33 mmol/L 07/30/2024 8:17 AM [facility] Blood ARTERIAL BLOOD / Unknown 07/30/2024 8:16 AM EST 07/30/2024 8:17 AM EST Aubree Silverio MD POINT OF CARE TEST ORDERABLES [facility] [place] [address] * (ABNORMAL) Troponin - Single (07/30/2024 8:09 [...] [facility] Test Catalog Troponin - [email or web address] Reference: Fourth [place] Definition of Myocardial Infarction. Journal of the [place] [employer] 2018;72:8460-5084 Blood VENOUS BLOOD SPECIMEN / Unknown Venipuncture / Unknown 07/30/2024 8:09 AM EST 07/30/2024 8:26 AM EST Aubree Silverio MD CHEMISTRY ORDERABL ES [facility] [place] [address] * POC, GLUCOSE (07/30/2024 7:40 AM EST) [...] TEST ORDERABLES [facility] [place] [address] * (ABNORMAL) CBC (with Diff) (07/30/2024 2:11 AM EST) White Blood Cell 11.25(H) 4.00 - 9.50 x10(3)/mc L 07/30/2024 2:33 AM [facility] Red Blood Cell 4.50(L) 4.58 - 5.54 x10(6)/mc L 07/30/2024 2:33 AM [facility] Hemoglobin 12.2(L) 13.7 - 16.5 g/dL 07/30/2024 2:33 AM [facility] Hematocrit 37.1(L) 40.5 - 48.5 % 07/30/2024 2:33 AM [facility] Mean Cell Volume 82.4(L) 82.9 - 93.1 fL 07/30/2024 2:33 AM [facility] Mean Cell Hemoglobin 27.1(L) 27.5 - 32.1 pg 07/30/2024 2:33 AM [facility] Mean Cell Hemoglobin Concentration 32.9 32.0 - 35.7 g/dL 07/30/2024 2:33 AM [facility] Platelet 166 145 - 357 x10(3)/mc L 07/30/2024 2:33 AM [facility] Mean Platelet Volume 10.6 7.6 - 12.9 fL 07/30/2024 2:33 AM [facility] RDW Standard Deviation 44.6 36.0 - 45.0 fL 07/30/2024 2:33 AM [facility] RDW coefficient of variation 14.6(H) 11.4 - 13.8 % 07/30/2024 2:33 AM [facility] NRBC% auto 0.0 % 07/30/2024 2:33 AM [facility] NRBC Absolute <0.01 <0.01 x10(3)/mc L 07/30/2024 2:33 AM [facility] Neutrophil % 88.9 % 07/30/2024 2:33 AM [facility] Neutrophil Absolute (ANC) - Automated 10.00(H) 1.70 - 6.10 x10(3)/mc L 07/30/2024 2:33 AM [facility] Lymph % 5.1 % 07/30/2024 2:33 AM [facility] Lymph Absolute 0.57(L) 0.90 - 3.20 x10(3)/mc L 07/30/2024 2:33 AM [facility] Monocyte % 5.4 % 07/30/2024 2:33 AM [facility] Monocyte Absolute 0.61 0.30 - 0.90 x10(3)/mc L 07/30/2024 2:33 AM [facility] Eos % 0.0 % 07/30/2024 2:33 AM [facility] Eos Absolute <0.04 0.00 - 0.40 x10(3)/mc L 07/30/2024 2:33 AM [facility] Basophil % 0.2 % 07/30/2024 2:33 AM [facility] Baso Absolute <0.04 0.00 - 0.10 x10(3)/mc L 07/30/2024 2:33 AM [facility] Immature Gran % 0.4 % 2:33 AM [facility] Immature Gran Absolute 0.05(H) 0.00 - 0.04 x10(3)/mc L 07/30/2024 2:33 AM [facility] Blood VENOUS BLOOD SPECIMEN / Unknown Venipuncture / Unknown 07/30/2024 2:11 AM EST 07/30/2024 2:22 AM EST Bridgette Stauffer MD HEMATOLOGY ORDERABLE S [facility] [place] [address] * Magnesium (07/30/2024 2:11 AM EST) Magnesium 1.01 0.69 - 1.07 mMol/L 07/30/2024 2:51 AM [facility] Blood VENOUS BLOOD SPECIMEN / Unknown Venipuncture / Unknown 07/30/2024 2:11 AM EST 07/30/2024 2:22 AM EST Bridgette Stauffer MD CHEMISTRY ORDERABLES Performing Organization Address City/[facility]/ZIP Co de Phone Number [facility] [place] [address] * (ABNORMAL) Basic Metabolic Panel (07/30/2024 2:11 AM EST) Pathologist [facility] Glucose 190 65 - 199 mg/dL 07/30/2024 2:51 AM [facility] Comment:Glucose Concentratio n >=200 mg/dL plus symptoms is consistent with Diabetes Mellitus. Blood Urea Nitrogen 15 10 - 20 mg/dL 07/30/2024 2:51 AM [facility] Creatinine 0.88 0.80 - 1.50 mg/dL 07/30/2024 2:51 AM [facility] Sodium 135 135 - 145 mMol/L 07/30/2024 2:51 AM [facility] Potassium 4.9 3.5 - 5.0 mMol/L 07/30/2024 2:51 AM [facility] Chloride 105 98 - 107 mMol/L 07/30/2024 2:51 AM [facility] Carbon Dioxide 19(L) 22 - 31 mMol/L 07/30/2024 2:51 AM [facility] Anion Gap 11 5 - 15 [...] CHEMISTRY ORDERABLES [facility] [place] [address] * (ABNORMAL) Cooximetry, POC (07/30/2024 1:00 AM EST) pO2, Coox 28 mmHg 07/30/2024 1:03 AM EST [facility] Hemoglobin, Coox 12.7(L) 13.7 - 16.5 g/dL 07/30/2024 1:03 AM EST [facility] Oxyhemoglobin, Coox 54.9 % 07/30/2024 1:03 AM [facility] Carboxyhemoglo bin, Coox 1.0 % 07/30/2024 1:03 AM [facility] Comment: Nonsmokers: 0.5-1.5% COHB ?? Smokers: Variable ??but usually less than 10% ?? Toxic: 20-30% COHB ?? Lethal: Greater than 60% COHB Methemoglobin, Coox 0.0 <=1.5 % 07/30/2024 1:03 AM [facility] Blood (Mixed Venous) 07/30/2024 1:00 AM EST 07/30/2024 1:03 AM EST Aubere Silverio MD POINT OF CARE TEST ORDERABLES Performing Organization Address City/State/[facility] Co de Phone Number [facility] [place] [address] * (ABNORMAL) Blood Gas, Arterial POC (07/30/2024 12:57 AM EST) pH, Arterial 7.38 7.35 - 7.45 07/30/2024 12:58 AM [facility] PCO2, Arterial 34(L) 35 - 45 mmHg 07/30/2024 12:58 AM [facility] PO2, Arterial 141(H) 85 - 104 mmHg 07/30/2024 12:58 AM [facility] Bicarbonate, Arterial 19.5(L) 20.0 - 26.0 mmol/L 07/30/2024 12:58 AM [facility] Base Excess, Arterial -5.6(L) -3.0 - 3.0 mmol/L 07/30/2024 12:58 AM [facility] Hemoglobin, Arterial 13.0(L) 13.7 - 16.5 g/dL 07/30/2024 12:58 AM [facility] Oxyhemoglobin, Arterial 98.4(H) 94.0 - 97.0 % 07/30/2024 12:58 AM [facility] Carboxyhemoglobin , Arterial 0.4 % 07/30/2024 12:58 AM [facility] Comment: Nonsmokers: 0.5-1.5% COHB ?? Smokers: Variable ??but usually less than 10% ?? Toxic: 20-30% COHB ?? Lethal: Greater than 60% COHB Methemoglobin, Arterial 0.1 <=1.5 % 07/30/2024 12:58 AM [facility] Sodium, Arterial 130(L) 135 - 145 mmol/L 07/30/2024 12:58 AM [facility] Potassium, Arterial 4.5 3.5 - 5.0 mmol/L 07/30/2024 12:58 AM [facility] Chloride, Arterial 104 98 - 107 mmol/L 07/30/2024 12:58 AM [facility] Lactate, Arterial 1.3 0.5 - 2.2 mmol/L 07/30/2024 12:58 AM [facility] Flow Rate 2.0 L/min 07/30/2024 12:58 AM [facility] IONIZED CALCIUM, ARTERIAL 1.12(L) 1.15 - 1.33 mmol/L 07/30/2024 12:58 AM [facility] Glucose, Arterial 184 65 - 199 mg/dL 07/30/2024 12:58 AM [facility] Comment:Glucose Concentratio n >=200 mg/dL plus symptoms is consistent with Diabetes Mellitus. Blood ARTERIAL BLOOD / Unknown 07/30/2024 12:57 AM EST 07/30/2024 12:58 AM EST Aubree Silverio MD POINT OF CARE TEST ORDERABLES [facility] [place] [address] * (ABNORMAL) Troponin - Single (07/29/2024 10:31 PM EST) Troponin-T, High Sensitivity >10,000(H ) <=22 ng/L 07/29/2024 11:03 PM [facility] Comment: This patient's troponin T concentration [...] [facility] Test Catalog Troponin - [email or web address]://[email or web address].testcatalog.org/catalogs/565/files/19498 Reference: Fourth [place] Definition of Myocardial Infarction. Journal of the [place] [employer] 2018;72:1542-0688 Blood VENOUS BLOOD SPECIMEN / Unknown Venipuncture / Unknown 07/29/2024 10:31 PM EST 07/29/2024 10:36 PM EST Yrn Ward MD CHEMISTRY ORDERABL ES Performing Organization Address City/[facility]/ZIP Co de Phone Number [facility] [place] [address] * Potassium (07/29/2024 8:11 PM EST) Pathologist [facility] Potassium 4.1 3.5 - 5.0 mMol/L 07/29/2024 8:52 PM EST [facility] Blood VENOUS BLOOD SPECIMEN / Unknown Venipuncture / Unknown 07/29/2024 8:11 PM EST 07/29/2024 8:16 PM EST Aubree Silverio MD CHEMISTRY ORDERABL ES [facility] [place] [address] * (ABNORMAL) Troponin - Single (07/29/2024 8:11 [...] [facility] Test Catalog Troponin - https://[facility].testcatalog.org/catalogs/565/files/69196 Reference: Fourth [place] Definition of Myocardial Infarction. Journal of the [place] College of [employer]iology 2018;72:8012-3393 Blood VENOUS BLOOD SPECIMEN / Unknown Venipuncture / Unknown 07/29/2024 8:11 PM EST 07/29/2024 8:16 PM EST Aubree Silverio MD CHEMISTRY ORDERABL ES Performing Organization Address City/State/[facility] Co de Phone Number [facility] [place] [address] * (ABNORMAL) Phosphorus (07/29/2024 8:11 PM EST) Phosphorus 2.1(L) 2.5 - 4.5 mg/dL 07/29/2024 8:52 PM EST [facility] Blood VENOUS BLOOD SPECIMEN / Unknown Venipuncture / Unknown 07/29/2024 8:11 PM EST 07/29/2024 8:16 PM EST Aubree Silverio MD CHEMISTRY ORDERABL ES Performing Organization Address City/State/[facility] Co de Phone Number [facility] [place] [address] * POC, GLUCOSE (07/29/2024 8:09 PM EST) Glucometer, POC 142 65 - 199 mg/dL 07/29/2024 8:09 PM EST [facility] Comment:Supplemental ranges: <140 mg/dL before meals <180 mg/dL all other times of the day. Blood CAPILLARY BLOOD / Unknown 07/29/2024 8:09 PM EST 07/29/2024 8:09 PM EST Aubree Silverio MD POINT OF CARE TEST ORDERABLES Performing Organization Address [facility] Co de Phone Number [facility] [place] [address] * ABORH RECHECK (07/29/2024 6:43 PM EST) ABORH Recheck AB POSITIVE 07/29/2024 10:13 PM EST [facility] Blood VENOUS BLOOD SPECIMEN / Unknown Venipuncture / Unknown 07/29/2024 6:43 PM EST 07/29/2024 7:15 PM EST Aubree Silverio MD BLOOD BANK LAB ORD ERABLES Performing Organization Address [facility] Co de Phone Number [facility] [place] [address] * POC, GLUCOSE (07/29/2024 5:57 PM EST) Glucometer, POC 166 65 - 199 mg/dL 07/29/2024 5:57 PM EST [facility] Comment:Supplemental ranges: <140 mg/dL before meals <180 mg/dL all other times of the day. Blood CAPILLARY BLOOD / Unknown 07/29/2024 5:57 PM EST 07/29/2024 5:57 PM EST Aubree Silverio MD POINT OF CARE TEST ORDERABLES [facility] [place] [address] * Type and screen ([facility]AL[place] (07/29/2024 5:56 PM EST) [facility] ABORH Type AB POSITIVE 07/29/2024 9:44 PM EST [facility] PATIENT HISTORY Not Found 07/29/2024 9:44 PM EST [facility] Expires at [id number] on: 08/01/2024 07/29/2024 9:44 PM EST [facility] ANTIBODY SCREEN AUTOMATED Negative 07/29/2024 9:44 PM EST [facility] T&S only valid at [facility] 07/29/2024 9:44 PM EST [facility] Blood VENOUS BLOOD SPECIMEN / Unknown Venipuncture / Unknown 07/29/2024 5:56 PM EST 07/29/2024 6:07 PM EST Narrative [facility] - 07/29/2024 9:44 PM EST This Type and Screen result is only valid at the [facility] Aubree Silverio MD BLOOD BANK LAB ORD ERABLES Performing Organization Address City/[facility]/ZIP Co de Phone Number [facility] [place] [address] * (ABNORMAL) Troponin - Single (07/29/2024 4:52 PM EST) [facility] Troponin-T, High Sensitivity >10,000(H ) <=22 ng/L [...] [facility] Test Catalog Troponin - https://[facility].testcatalog.org/catalogs/565/files/16895 Reference: Fourth [place] Definition of Myocardial Infarction. Journal of the [place] College of Cardiology 2018;72:1802-5122 Blood VENOUS BLOOD SPECIMEN / Unknown Venipuncture / Unknown 07/29/2024 4:52 PM EST 07/29/2024 4:57 PM EST Aubree Silverio MD CHEMISTRY ORDERABL ES Performing Organization Address [facility]/ZIP Co de Phone Number [facility] [place] [address] * EKG 12 Lead (07/29/2024 4:21 PM EST) Ventricular rate 72 BPM MUSE SYSTEM Atrial Rate 72 BPM MUSE SYSTEM P-R Interval 168 ms MUSE SYSTEM QRS Duration 82 ms MUSE SYSTEM Q-T Interval 392 ms MUSE SYSTEM QTC Calculated (Bezet) 429 ms MUSE SYSTEM Calculated P [place] 71 degrees MUSE SYSTEM Calculated R [place] 77 degrees MUSE SYSTEM Calculated T [place] 28 degrees MUSE SYSTEM INTERPRETATION Sinus rhythm [...] Silverio MD ECG ORDERABLES Performing Organization Address City/[facility]/ZIP Co de Phone Number MUSE SYSTEM * (ABNORMAL) Blood Gas, Arterial POC (07/29/2024 4:21 PM EST) pH, Arterial 7.37 7.35 - 7.45 07/29/2024 4:22 PM [facility] PCO2, Arterial 36 35 - 45 mmHg 07/29/2024 4:22 PM [facility] PO2, Arterial 71(L) 85 - 104 mmHg 07/29/2024 4:22 PM [facility] Bicarbonate, Arterial 20.4 20.0 - 26.0 mmol/L 07/29/2024 4:22 PM [facility] Base Excess, Arterial -4.8(L) -3.0 - 3.0 mmol/L 07/29/2024 4:22 PM [facility] Hemoglobin, Arterial 12.2(L) 13.7 - 16.5 g/dL 07/29/2024 4:22 PM [facility] Oxyhemoglobin, Arterial 93.8(L) 94.0 - 97.0 % 07/29/2024 4:22 PM [facility] Carboxyhemoglobin , Arterial 0.5 % 07/29/2024 4:22 PM [facility] Comment: Nonsmokers: 0.5-1.5% COHB ?? Smokers: Variable ??but usually less than 10% ?? Toxic: 20-30% COHB ?? Lethal: Greater than 60% COHB Methemoglobin, Arterial 0.3 <=1.5 % 07/29/2024 4:22 PM [facility] Sodium, Arterial 134(L) 135 - 145 mmol/L 07/29/2024 4:22 PM [facility] Potassium, Arterial 4.2 3.5 - 5.0 mmol/L 07/29/2024 4:22 PM [facility] Chloride, Arterial 107 98 - 107 mmol/L 07/29/2024 4:22 PM [facility] Lactate, Arterial 1.5 0.5 - 2.2 mmol/L 07/29/2024 4:22 PM [facility] Fraction of Inspired Oxygen 21 % 07/29/2024 4:22 PM [facility] PF Ratio 338 Ratio 07/29/2024 4:22 PM [facility] Comment:PF ratio calculated using the non-temperature corrected pO2 result. IONIZED CALCIUM, ARTERIAL 1.12(L) 1.15 - 1.33 mmol/L 07/29/2024 4:22 PM [facility] Glucose, Arterial 181 65 - 199 mg/dL 07/29/2024 4:22 PM [facility] Comment:Glucose Concentratio n >=200 mg/dL plus symptoms is consistent with Diabetes Mellitus. Blood ARTERIAL BLOOD / Unknown 07/29/2024 4:21 PM EST 07/29/2024 4:22 PM EST Aubree Silverio MD POINT OF CARE TEST ORDERABLES Performing Organization Address City/[facility]/ZIP Co de Phone Number [facility] [place] [address] * POC, GLUCOSE (07/29/2024 4:19 PM EST) Glucometer, POC 185 65 - 199 mg/dL 07/29/2024 4:19 PM [facility] Comment:Supplemental ranges: <140 mg/dL before meals <180 mg/dL all other times of the day. Blood CAPILLARY BLOOD / Unknown 07/29/2024 4:19 PM EST 07/29/2024 4:19 PM EST Aubree Silverio MD POINT OF CARE TEST ORDERABLES [facility] [place] [address] * Blood culture (07/29/2024 4:08 PM EST) Blood Culture No growth at 120 hours 08/03/2024 5:01 PM EST [facility] Blood VENOUS BLOOD SPECIMEN / Unknown Venipuncture / Unknown 07/29/2024 4:08 PM EST 07/29/2024 4:15 PM EST Aubree Silverio MD MICROBIOLOGY - BLO OD ORDERABLES Performing Organization Address [facility] Co de Phone Number [facility] [place] [address] * Blood culture (07/29/2024 4:08 PM EST) Blood Culture No growth at 120 hours 08/03/2024 5:01 PM EST [facility] Blood VENOUS BLOOD SPECIMEN / Unknown Venipuncture / Unknown 07/29/2024 4:08 PM EST 07/29/2024 4:26 PM EST Aubree Silverio MD MICROBIOLOGY - BLO OD ORDERABLES Performing Organization Address [facility] de Phone Number [facility] [place] [address] * XR Chest One View (07/29/2024 2:30 PM EST) WORKSTATION ID [id number] DH RAD Anatomical Region Laterality Modality Chest [...] have questions please contact the health rn intensive care unit that requested your imaging first. ? Electronically signed by: Chris Candelaria MD, [facility] ([phone]), at 07/29/2024 3:21 PM Narrative 07/29/2024 3:21 [...] who have questions please contactthe health rn intensive care unit that requested your imaging first. Electronically signed by: Chris Candelaria MD, [facility]([phone]), at 07/29/2024 3:21 PM Vahe Marvin MD IMG DX ORDERABLES * (ABNORMAL) APTT (07/29/2024 2:03 PM EST) Partial Thromboplastin Time >160([facility]) 25 - 37 sec 07/29/2024 2:56 PM EST [facility] Blood VENOUS BLOOD SPECIMEN / Unknown Venipuncture / Unknown 07/29/2024 2:03 PM EST 07/29/2024 2:13 PM EST Vahe Marvin MD HEMATOLOGY ORDERABLE S Performing Organization Address City/[facility]/ZIP Co de Phone Number [facility] [place] [address] * (ABNORMAL) Prothrombin Time (07/29/2024 2:03 PM [...] MD HEMATOLOGY ORDERABLE S Performing Organization Address [facility] Co de Phone Number [facility] [place] [address] * CRP, acute inflammation (07/29/2024 2:03 PM EST) C-Reactive Protein <3.0 <=4.9 mg/L 07/29/2024 2:52 PM EST [facility] Blood VENOUS BLOOD SPECIMEN / Unknown Venipuncture / Unknown 07/29/2024 2:03 PM EST 07/29/2024 2:14 PM EST Vahe Marvin MD CHEMISTRY ORDERABLES Performing Organization Address City/[facility]/ZIP Co de Phone Number [facility] [place] [address] * Lipid Panel (Reflex Direct LDL) (07/29/2024 2:03 PM EST) Cholesterol, Total 133 mg/dL 07/29/2024 2:52 PM [facility] Comment: Desirable: < 200 mg/dL Borderline High: 200 - 239 mg/dL High: > or = 240 mg/dL Triglyceride 45 mg/dL 07/29/2024 2:52 PM [facility] Comment: Normal: <150 mg/dL Borderline High: 150-199 mg/dL High: 200-499 mg/dL Very High: > or =500 mg/dL HDL Cholesterol 58 mg/dL 2:52 PM [facility] Comment:Males: High Risk: <4 0 mg/dL LDL Cholesterol 64 mg/dL 4 2:52 PM [facility] Comment: Desirable: <100 mg/dL Above Desirable: 100-129 mg/dL Borderline High: 130-159 mg/dL High: 160-189 mg/dL Very High: > or =190 mg/dL Note: LDL calculation updated to the NIH LDL formula as of 04/15/2024 Non-HDL Cholesterol 75 mg/dL 07/29/2024 2:52 PM [facility] Comment: Desirable: <130 mg/dL Above Desirable: 130-159 mg/dL Borderline High: 160-189 mg/dL High: 190-219 mg/dL Very High: > or = 220 mg/dL Blood VENOUS BLOOD SPECIMEN / Unknown Venipuncture / Unknown 07/29/2024 2:03 PM EST 07/29/2024 2:14 PM EST [facility] - 07/29/2024 2:52 PM EST [...] CHEMISTRY ORDERABLES [facility] [place] [address] * TSH Piatt (07/29/2024 2:03 PM EST) Thyroid Stimulating Hormone 0.70 0.27 - 4.20 mcIU/mL 07/29/2024 2:52 PM EST [facility] Blood VENOUS BLOOD SPECIMEN / Unknown Venipuncture / Unknown 07/29/2024 2:03 PM EST 07/29/2024 2:14 PM EST Vahe Marvin MD CHEMISTRY ORDERABLES [facility] [place] [address] * Hemoglobin A1c (07/29/2024 2:03 PM EST) Pathologist [facility] Hemoglobin A1c 5.3 4.3 - 5.6 % [...] red blood cell turnover may not be life assurance representative of glycemic control. Reference Interval: 4.3 [...] EST 07/29/2024 2:14 PM EST [facility] - 07/29/2024 2:41 PM EST Estimated average glucose (eAG) is calculated from the equation described in: Quinten ALVES, Rikki J, [place] R, et al. ??Translating the A1C assay into estimated average glucose values. ??Diabetes Care 2008:31(8):3332-8991. Additional resources are available on the ADA website (diabetes.org). Vahe Marvin MD CHEMISTRY ORDERABLES [facility] [place] [address] * (ABNORMAL) CBC (with Diff) (07/29/2024 2:03 PM EST) White Blood Cell 19.50(H) 4.00 - 9.50 x10(3)/mc L 07/29/2024 2:18 PM EST [facility] Red Blood Cell 4.81 4.58 - 5.54 x10(6)/mc L 07/29/2024 2:18 PM [facility] Hemoglobin 13.1(L) 13.7 - 16.5 g/dL 07/29/2024 2:18 PM EST [facility] Hematocrit 40.1(L) 40.5 - 48.5 % 07/29/2024 2:18 PM EST [facility] Mean Cell Volume 83.4 82.9 - 93.1 fL 07/29/2024 2:18 PM EST [facility] Mean Cell Hemoglobin 27.2(L) 27.5 - 32.1 pg 07/29/2024 2:18 PM [facility] Mean Cell Hemoglobin Concentration 32.7 32.0 - 35.7 g/dL 07/29/2024 2:18 PM EST [facility] Platelet 236 145 - 357 x10(3)/mc L 07/29/2024 2:18 PM [facility] Mean Platelet Volume 10.6 7.6 - 12.9 fL 07/29/2024 2:18 PM EST [facility] RDW Standard Deviation 43.7 36.0 - 45.0 fL 07/29/2024 2:18 PM [facility] RDW coefficient of variation 14.3(H) 11.4 - 13.8 % 07/29/2024 2:18 PM [facility] NRBC% auto 0.0 % 07/29/2024 2:18 PM [facility] NRBC Absolute <0.01 <0.01 x10(3)/mc L 07/29/2024 2:18 PM [facility] Neutrophil % 93.6 % 07/29/2024 2:18 PM [facility] Neutrophil Absolute (ANC) - Automated 18.28(H) 1.70 - 6.10 x10(3)/mc L 07/29/2024 2:18 PM [facility] Lymph % 2.7 % 07/29/2024 2:18 PM [facility] Lymph Absolute 0.52(L) 0.90 - 3.20 x10(3)/mc L 07/29/2024 2:18 PM [facility] Monocyte % 2.9 % 07/29/2024 2:18 PM [facility] Monocyte Absolute 0.56 0.30 - 0.90 x10(3)/mc L 07/29/2024 2:18 PM [facility] Eos % 0.0 % 07/29/2024 2:18 PM [facility] Eos Absolute <0.04 0.00 - 0.40 x10(3)/mc L 07/29/2024 2:18 PM [facility] Basophil % 0.3 % 07/29/2024 2:18 PM [facility] Baso Absolute 0.05 0.00 - 0.10 x10(3)/mc L 07/29/2024 2:18 PM [facility] Immature Gran % 0.5 % 2:18 PM [facility] Immature Gran Absolute 0.09(H) 0.00 - 0.04 x10(3)/mc L 07/29/2024 2:18 PM [facility] Blood VENOUS BLOOD SPECIMEN / Unknown Venipuncture / Unknown 07/29/2024 2:03 PM EST 07/29/2024 2:13 PM EST Vahe Marvin MD HEMATOLOGY ORDERABLE S [facility] [place] [address] * Phosphorus (07/29/2024 2:03 PM EST) Phosphorus 2.5 2.5 - 4.5 mg/dL 07/29/2024 2:52 PM EST [facility] Blood VENOUS BLOOD SPECIMEN / Unknown Venipuncture / Unknown 07/29/2024 2:03 PM EST 07/29/2024 2:14 PM EST Vahe Marvin MD CHEMISTRY ORDERABLES Performing Organization Address City/[facility]/ZIP Co de Phone Number [facility] [place] [address] * Magnesium (07/29/2024 2:03 PM EST) Pathologist [facility] Magnesium 0.70 0.69 - 1.07 mMol/L 07/29/2024 2:52 PM EST [facility] Blood VENOUS BLOOD SPECIMEN / Unknown Venipuncture / Unknown 07/29/2024 2:03 PM EST 07/29/2024 2:14 PM EST Vahe Marvin MD CHEMISTRY ORDERABLES [facility] [place] [address] * (ABNORMAL) Comprehensive metabolic panel (07/29/2024 2:03 PM EST) Glucose 243(H) 65 - 199 mg/dL 07/29/2024 3:11 PM EST [facility] Comment:Glucose Concentratio n >=200 mg/dL plus symptoms is consistent with Diabetes Mellitus. Blood Urea Nitrogen 13 10 - 20 mg/dL 07/29/2024 3:11 PM EST [facility] Creatinine 0.88 0.80 - 1.50 mg/dL 07/29/2024 3:11 PM [facility] Sodium 138 135 - 145 mMol/L 07/29/2024 3:11 PM [facility] Potassium 3.6 3.5 - 5.0 mMol/L 07/29/2024 3:11 PM [facility] Chloride 104 98 - 107 mMol/L 07/29/2024 3:11 PM [facility] Carbon Dioxide 19(L) 22 - 31 mMol/L 07/29/2024 3:11 PM [facility] Anion Gap 15 5 - 15 mMol/L 07/29/2024 3:11 PM [facility] Calcium 8.0(L) 8.5 - 10.5 mg/dL 07/29/2024 3:11 PM [facility] Protein, Total 6.0(L) 6.1 - 8.0 g/dL 07/29/2024 3:11 PM [facility] Albumin 3.6 3.2 - 5.2 g/dL 07/29/2024 3:11 PM [facility] Aspartate Aminotransferase 07/29/2024 3:11 PM [facility] Comment:Unable to report due to hemolysis. Alanine Aminotransferase 56(H) 0 - 55 unit/L 07/29/2024 3:11 PM [facility] Alkaline Phosphatase 58 40 - 130 unit/L 07/29/2024 3:11 PM [facility] Bilirubin, Total 0.5 <=1.3 mg/dL 07/29/2024 3:11 PM [facility] Est Glomerular Filtration Rate - Male 91 mL/min/1. 73 m?? 07/29/2024 3:11 PM [facility] Comment: This patient's estimated GFR was [...] CHEMISTRY ORDERABLES [facility] [place] [address] * (ABNORMAL) Troponin - Single (07/29/2024 2:03 PM EST) Pathologist [facility] Troponin-T, High Sensitivity >10,000(H ) <=22 ng/L [...] [facility] Test Catalog Troponin - [email or web address]/catalogs/565/[email or web address] Reference: Fourth [place] Definition of Myocardial Infarction. Journal of the [place] [employer] 2018;72:6141-3745 Blood VENOUS BLOOD SPECIMEN / Unknown Venipuncture / Unknown 07/29/2024 2:03 PM EST 07/29/2024 2:14 PM EST Vahe Marvin MD CHEMISTRY ORDERABLES [facility] [place] [address] * (ABNORMAL) Blood Gas, Venous POC (07/29/2024 2:01 PM EST) pH, Venous 7.30(L) 7.32 - 7.42 07/29/2024 2:02 PM EST [facility] PCO2, Venous 42 38 - 58 mmHg 07/29/2024 2:02 PM [facility] PO2, Venous 39 16 - 65 mmHg 07/29/2024 2:02 PM [facility] Bicarbonate, Venous 20.1(L) 22 - 31 mmol/L 07/29/2024 2:02 PM [facility] Base Excess, Venous -6.4(L) 1.9 - 4.5 mmol/L 07/29/2024 2:02 PM [facility] Hemoglobin, Venous 14.2 13.7 - 16.5 g/dL 07/29/2024 2:02 PM [facility] Oxyhemoglobin, Venous 69.3 % 07/29/2024 2:02 PM [facility] Carboxyhemoglobin , Venous 0.8 % 07/29/2024 2:02 PM [facility] Comment: Nonsmokers: 0.5-1.5% COHB ?? Smokers: Variable ??but usually less than 10% ?? Toxic: 20-30% COHB ?? Lethal: Greater than 60% COHB Methemoglobin, Venous 0.3 <=1.5 % 07/29/2024 2:02 PM [facility] Sodium, Venous 137 135 - 145 mmol/L 07/29/2024 2:02 PM [facility] Potassium, Venous 3.6 3.5 - 5.0 mmol/L 07/29/2024 2:02 PM [facility] Chloride, Venous 103 98 - 107 [...] CARE TEST O RDERABLES Performing Organization Address City/State/[facility] Co de Phone Number [facility] [place] [address] * CARDIAC CATHETERIZATION (07/29/2024 1:20 PM EST) Anatomical Region Laterality Modality Other Narrative 07/29/2024 2:02 PM EST ?[facility] ? Cardiac Catheterization/Intervention Report ? Patient Name: Korey Montoya Driss ? Procedure Date: 07/29/2024 ? A #: [id number] ? Primary Physician: Vahe Marvin ? Case #: [id number] ? File Name: [id number] ? Catheterization Order Number: [id number] ? [facility] ? Final Report [place], [place] ? Patient Name: ? Korey P. Montoya ?ID#: ?[id number] ? : ?1950 ? Procedure Date: ? [...] procedure was Emergent. 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 ??Imaging [...] A premounted 3.00 x 22 mm Jeison Buchanan (LOW) was deployed ? with a maximum [...] atmospheres. ??A premounted 3.00 x 08 mm Woodruff Buchanan (LOW) ? was deployed with a maximum [...] dose administered prior to arrival in the general labor forklift operator. ?Recommended anti-platelet/anti-thrombotic regimen: ?Start aspirin 81 mg daily now and continue for 12 months then stop. ?Start clopidogrel 75 mg daily now and continue for indefinitely. ?These recommendations are made at the time of the intervention. Patient ?and provider preferences or a changing clinical situation may require ?modification of this regimen. Consult [facility] for ?questions. ?The 1 year [...] able ?to start weaning his inotropes/vasopressors. A [place] Colette catheter was ?placed demonstrating improvement in his hemodynamics and the impella site ?was perclosed and hemostatic gauze was applied with excellent result. ?WIll transfer to the [facility] for further management. ?The attending physician was present for the entire procedure. ?Dr. Vahe Marvin M.D. was present during the moderate sedation ?intraservice time as documented by the sedation nurse. ??Case time = 01:26. ?Dr. Vahe Marvin M.D. performed the coronary angiography, left heart ?catheterization, IVUS # coronary, stent insertion-coronary, oximetry, ABG, ?transthoracic echo , ventricular assist device insertion, right heart ?catheterization, Rialto (flow directed cath) insertion, access site ?angiography, vascular ultrasound, venous line / sheath insert and vascular ?closure device. ? Vahe Marvin M.D. ? Electronically Signed by: Vahe Marvin M.D. ? Report Finalized: 07/29/2024 ??13:55 ? Report Last Ammended: 07/30/2024 ??10:15 ? Procedure Note Vahe Marvin MD - 07/30/2024 [facility] Cardiac Catheterization/Intervention Report Patient Name: Korey Montoya Procedure Date: 07/29/2024 A #: [id number] Primary Physician: Vahe Marvin Case #: [id number] File Name: [id number] Catheterization Order Number: [id number] [facility] FinalReport [place], [place] Patient Name: Korey Montoya ID#:[id number] :1950 Procedure Date: July 29, 2024 Case [...] diagnostic procedure was Emergent. Theindication for the general labor forklift operator visit is ACS less than or equal [...] 3.5 guiding catheter and a 3.5 Fr [facility] [address] 20 Mhzusing Manual pullback. Imaging was [...] The priority for the procedure was Emergent.The [facility] indication for the procedure was STEMI-Immediate [...] The lesion was predilated with a 2.00mm [id number] MM balloon with a maximum inflation pressure of 12atmospheres. 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 Recommended anti-platelet/anti-thrombotic regimen: Start aspirin 81 mg daily now and continue for 12 months then stop. Start clopidogrel 75 mg daily now and continue for indefinitely. These recommendations are made at the time of the intervention.Patient and provider preferences or a changing clinical situation mayrequire modification of this regimen. Consult [facility] [place]iology[place] questions. The 1 year bleeding [...] wereable to start weaning his inotropes/vasopressors. A Rialto Colette catheterwas placed demonstrating improvement in his [...] ventricular assist device insertion, right heart catheterization, Rialto (flow directed cath) insertion, access site angiography, [...] 3.5 - 5.0 mmol/L 07/30/2024 7:30 AM [facility] pH, POC 7.33(L) 7.35 - 7.45 07/30/2024 7:30 AM [facility] Ionized Calcium, POC 1.13(L) 1.15 - 1.33 mmol/L 07/30/2024 7:30 AM [facility] pCO2, POC 38 35 - 45 mmHg 07/30/2024 7:30 AM [facility] pO2, POC 94 85 - 104 mmHg 07/30/2024 7:30 AM [facility] Base Excess, POC -6.0(L) -3.0 - 3.0 mmol/L 07/30/2024 7:30 AM [facility] Hematocrit, POC 39.0(L) 40.5 - 48.5 %PCV 07/30/2024 7:30 AM [facility] Hemoglobin, POC 13.3(L) 13.7 - 16.5 g/dL 07/30/2024 7:30 AM [facility] Comment:The calculation of h emoglobin from hematocrit assumes a normal MCHC. Bicarbonate, POC 19.8(L) 20.0 - 26.0 mmol/L 07/30/2024 7:30 AM [facility] Carbon Dioxide, POC 21(L) 22 - 31 mmol/L 07/30/2024 7:30 AM [facility] Blood VENOUS BLOOD SPECIMEN / Unknown 07/29/2024 12:46 PM EST 07/30/2024 7:30 AM EST Vahe Marvin MD POINT OF CARE TEST O RDERABLES [facility] [place] [address] * (ABNORMAL) BLOOD GAS, POC (07/29/2024 12:12 PM EST) Sodium, POC 135 135 - 145 mmol/L 07/30/2024 7:30 AM [facility] Potassium, POC 3.8 3.5 - 5.0 mmol/L 07/30/2024 7:30 AM [facility] pH, POC 7.27(LLL) 7.35 - 7.45 07/30/2024 7:30 AM [facility] Ionized Calcium, POC 1.14(L) 1.15 - 1.33 mmol/L 07/30/2024 7:30 AM [facility] pCO2, POC 43 35 - 45 mmHg 07/30/2024 7:30 AM [facility] pO2, POC 131(H) 85 - 104 mmHg 07/30/2024 7:30 AM [facility] Base Excess, POC -7.0(L) -3.0 - 3.0 mmol/L 07/30/2024 7:30 AM [facility] Hematocrit, POC 36.0(L) 40.5 - 48.5 %PCV 07/30/2024 7:30 AM [facility] Hemoglobin, POC 12.2(L) 13.7 - 16.5 g/dL 07/30/2024 7:30 AM [facility] Comment:The calculation of h emoglobin from hematocrit assumes a normal MCHC. Bicarbonate, POC 19.7(L) 20.0 - 26.0 mmol/L 07/30/2024 7:30 AM [facility] Carbon Dioxide, POC 21(L) 22 - 31 mmol/L 07/30/2024 7:30 AM [facility] Blood VENOUS BLOOD SPECIMEN / Unknown 07/29/2024 12:12 PM EST 07/30/2024 7:30 AM EST Vahe Marvin MD POINT OF CARE TEST O RDERABLES [facility] [place] [address] documented in this encounter Visit Diagnoses Not [...] Routine documented in this encounter Care Teams Press Supervisor Relationship Specialty Start Date End Date Alexia Mtz, [employer]CH[employer] PROCESSOR [address] [place] [address] PCP - General Family Medicine 07/30/24 documented as of this encounter
--- OUTSIDE RECORDS SUMMARY | 2024-09-03 11:00 | XMS_ITS | Encounter Summary ---
Author Organization Formerly [facility] Address [facility] [place] [address] Care Team Providers Care Identification Officer Name Role Phone MadelineAlexia shell Shun ALCALA Primary Care Provider [phone] Reason for Referral * Consultation (Routine) - Authorized Specialty Diagnoses / Procedures Referred By Contac t Referred To Contact Cardiology Diagnoses HFrEF (heart failure with reduced ejection fraction) [facility] S/P D/C acute HFrEF Alex Small MD [facility] [place] [address] Mushtaq Murphy APRN [facility] [place] [address] Referral ID Status Reason Start Date Expiration Date Visits Requested Visits Authorized [id number] Authorized Consult, Test & Treat 08/04/2024 08/04/2025 1 1 * Consultation (Routine) - Authorized Specialty Diagnoses / Procedures Referred By Contac t Referred To Contact Cardiology Diagnoses ST elevation myocardial infarction involving left anterior descending (LAD) coronary artery Yrn Ward MD [facility] [place] [address] Cardiac Rehab, [address] [place] [address] Referral ID Status Reason Start Date Expiration Date Visits Requested Visits Authorized [id number] Authorized Consult, Test & Treat 08/04/2024 01/31/2025 36 36 Reason for Visit * Auth/Cert (Routine) Specialty Diagnoses / Procedures Referred By Contac t Referred To Contact Diagnoses STEMI (ST elevation myocardial infarction) STEMI Procedures ER IPI Vahe Marvin MD [facility] [place] [address] [address] [facility] Referral ID Status Reason Start Date Expiration Date Visits Re quested Visits Authorized [id number] 1 1 Encounter Details Date Type Department Care Team (Latest Contact Info) Description 07/29/2024 11:45 AM EST - 08/04/2024 5:00 PM EST Hospital Encounter Cardiovascular [place] [phone] Vahe Marvin MD [facility] [place] [address] [address] Jay Silverio MD [facility] [place] [address] [place] [address] Krystal Parker MD [facility] [place] [address] [place] [address] Bridgette Stauffer MD [facility] [place] [address] [place] [address] Yrn Ward MD [facility] [place] [address] [address] Alex Small MD [facility] [place] [address] ST elevation myocardial infarction involving left anterior descending (LAD) coronary artery; HFrEF (heart failure with reduced ejection fraction) Discharge Disposition: Home Social History Tobacco Use Types Packs/Day Years Used Date Smoking Tobacco: Former Cigarettes Smokeless Tobacco: Never Alcohol Use Standard Drinks/Week Comments Not Currently 0 (1 standard drink = 0.6 oz pur e alcohol) [facility] Utilities Answer Date Recorded In the [...] Korey Montoya Patient Age: 74 y.o. Language: Ethiopian Race: White Ethnicity: Not nor Admit date: [...] daily. Morris estimate is high. Dced with Htatie instead. - Referral to heart failure team for follow up. Inpatient Provider Contact Information: ALEX SMALL POORNIMA KOSTOJCHIN, YRN SILVERIO, KRYSTAL LEI For questions regarding this document or issues relating to this hospitalization on the Medical Service, please contact your inpatient physician through the [facility] Tile Inspector . Issues afterhours and on weekends [...] EKG. Patient transferred via air ambulance to [facility] [place] on 07/29 for LHC and LOW to [...] EKG. Was transferred via air ambulance to [facility] [place] for further management and LHC demonstrated 100% occlusion. No significant RCA, LMCA, or LCX disease. LOW placed in LAD with some residual distal disease meriting placement of overlapping distal stent. TTE showed apical akinesis and inferior hypokinesis with EF 20%. RHC showed elevated filling pressures. Impella placed and P-level 6 at time of transfer to [facility]. CI initially 1.97, improved to [...] the next year. Access was via right BASEBALL GLOVE STUFFER and this sitewas clean, dry and intact [...] for Chest pain. Replaces: nitroGLYcerin 400 mcg/spray Troy, Non-Aerosol 0.4 mg Quantity: 90 tablet Refills: [...] Refills: 0 STOPPED Medications nitroGLYcerin 400 mcg/spray Troy, Non-Aerosol Commonly known as: NITROLINGUAL Replaced by: [...] of one year. After this time, your enrollment management coordinator will determine if you need to [...] away. Stay on the phone. The emergency draw operator will tell you what to do. [...] appointments: During 8am-5pm Tuesday through Tuesday call [phone] to speak with a nurse in the cardiology clinic All other times call [phone] and ask to speak to the anodiser migration specialist. Follow up Appointments: PCP Alexia tMz, CHANGE OF ADDRESS CLERK [phone]. Please call to establish a follow up appointment within 1-2 weeks of discharge. Cardiology. Referral to heart failure has been sent. General Instructions None Future Appointments and Orders Future Orders Complete By Expires Referral to Cardiac Rehab [[id number] Custom] As directed Process Instructions: If no [...] of one year. After this time, your enrollment management coordinator will determine if you need to [...] away. Stay on the phone. The emergency draw operator will tell you what to do. [...] appointments: During 8am-5pm Tuesday through Tuesday call [phone] to speak with a nurse in the cardiology clinic All other times call [phone] and ask to speak to the anodiser migration specialist. Follow up Appointments: PCP Alexia Mtz, CHANGE OF ADDRESS CLERK [phone]. Please call to establish a follow up [...] EKG. Patient transferred via air ambulance to [facility] [place] on 07/29 for LHC and LOW to [facility] for 100% occlusion Social History: Pt lives with his in a 1 level home with 2 NAOMI. 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 He [...] Total time: 35 (tef) minutes Time IN/OUT: [id number] ZAIAD DUBOSE PT Pager: [phone] Physical Therapy Inpatient Rehabilitation Department * Yrn Ward MD - 08/03/2024 10:38 AM EST CV HOSPITALIST 2 - [facility] DAILY PROGRESS NOTE Page [phone] to reach a provider 04/04 Admit Date: [...] or before 29-JUL-2024) Lateral injury pattern ACUTE ME / STEMI Abnormal ECG When compared with [...] Compared to the overnight study by the migration specialist fellow the impella position is stable. 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 [facility] 07/29/24 Conclusions: * One vessel coronary artery disease (LAD) * Mild pulmonary hypertension * Elevated pulmonary capillary wedge pressure * Successful stent insertion of the proximal LAD lesion * See Dual Antiplatelet (DAPT) Recommendations above * Successful impella placement for cardiogenic shock. Telemetry: I have personally reviewed and interpreted the telemetry from the last 24 hours. [facility] Assessment: ASSESSMENT: Korey Montoya is a 74 y.o. male w/ PMH of hypertension, HLD, and BPH who presents for chief concern of chest pain after being found to have ST elevations on EKG. Patient transferred via air ambulance to [facility] [place] on 07/29 for LHC and LOW to [...] be determined OT: PCP Alexia Mtz, FREDRICK [phone] * Zaida Dubose, PT - 08/02/2024 2:08 PM EST Physical Therapy Evaluation Patient profile: Korey Montoya is a 74 y.o. male w/ PMH of hypertension, HLD, and BPH who presents for chief concern of chest pain after being found to have ST elevations on EKG. Patient transferred via air ambulance to [facility] [place] on 07/29 for LHC and LOW to LAD for 100% occlusion Social History: Pt lives with his in a 1 level home with 2 NAOMI. 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 He [...] Total time: 37 (eval) minutes Time IN/OUT: [id number] ZAIDA DUBOSE PT Pager: [phone] Physical Therapy Inpatient Rehabilitation Department * Gagan [...] EKG. Patient transferred via air ambulance to [facility] [place] on 07/29 for LHC and LOW to LAD for 100% occlusion. TTE showed apical akinesis and inferior hypokinesis with EF 20%. RHC showed elevated filling pressures. Impella placed and P-level 6 at time of transfer to [facility]. CI initially 1.97, improved to [...] PCP: Alexia Mtz APRN PCP phone number: [phone] Date of Admission: 07/29/2024 ( Hospital Day 4 days ) Attending:Bridgette Stauffer MD ID: Korey Montoya is a 74 y.o. male w/ PMH of hypertension, HLD, and BPH on Hospital Day4 for chief concern of chest pain after being found to have ST elevations on EKG. Patient transferred via air ambulance to [facility] [place] on 07/29 for LHC and LOW to [...] 07/29/24 1621 PHART 7.48* 7.44 7.38 7.37 [id number] 29* 29* 34* 36 PO2ART 71* 109* 141* 71* QGW3YEB 20.6 19.4* 19.5* 20.4 VBG (Venous Blood Gas) Recent Labs 07/29/24 1401 PHVEN 7.30* PO2VEN 39 DXY5XKI 20.1* Mixed Venous Sat No results for input(s): J7QYYS5 in the last 168 hours. Objective: Vitals [...] 07/29/24 1621 PHART 7.48* 7.44 7.38 7.37 NPO6SKE 29* 29* 34* 36 PO2ART 71* 109* 141* 71* HIW9UPE 20.6 19.4* 19.5* 20.4 VBG (Venous Blood Gas) Recent Labs 07/29/24 1401 PHVEN 7.30* PO2VEN 39 VBO8OKT 20.1* Mixed Venous Sat No results for input(s): G0EFNP4 in the last 168 hours. Microbiology: Microbiology Results (Last 30 days) Procedure Component Value Units Date/Time Blood culture [[id number]] Collected: 07/29/241607 Lab Status: Preliminary result Specimen: Blood, Venous Updated: 08/01/241700 Blood Culture No growth at 72 hours Blood culture [[id number]] Collected: 07/29/241607 Lab Status: Preliminary result Specimen: Blood, Venous Updated: 08/01/241700 Blood Culture No growth at 72 hours Imaging: Results for orders placed or performed during the hospital encounter of 07/29/24 XR Chest One View (Exam End: 07/29/2024 2:30 PM) Result Value WORKSTATION ID [id number] Impression 1. No pulmonary edema. 2. No pleural effusion. 3. No pneumothorax. Thank you for letting us participate in the care of this patient. If you are a health care provider and have any questions regarding this report, please contact the number below. For patients who have questions please contact the health patient care director that requested your imaging first. ( 07/30/24) [...] Compared to the overnight study by the migration specialist fellow the impella position is stable. [...] EKG. Patient transferred via air ambulance to [facility] [place] on 07/29 for LHC and LOW to [...] MD Internal Medicine, PGY-1 Cardiology, [facility] 08/02/24 12:45 PM CARDIOLOGY STAFF [...] today). Transfer to floor. Krystal Parker, MD, [facility], [facility] Staff [employer] business continuity consultant * Gagan Catherine MD - 08/01/2024 [...] EKG. Patient transferred via air ambulance to [facility] [place] on 07/29 for LHC and LOW to [...] PCP: Alexia Mtz APRN PCP phone number: [phone] Date of Admission: 07/29/2024 ( Hospital Day 3 days ) Attending:Krystal Parker MD ID: Korey Montoya is a 74 y.o. male w/ PMH of hypertension, HLD, and BPH on Hospital Day3 for chief concern of chest pain after being found to have ST elevations on EKG. Patient transferred via air ambulance to [facility] [place] on 07/29 for LHC and LOW to [...] 07/29/24 1621 PHART 7.48* 7.44 7.38 7.37 [id number] 29* 29* 34* 36 PO2ART 71* 109* 141* 71* PGB3VKI 20.6 19.4* 19.5* 20.4 VBG (Venous Blood Gas) Recent Labs 07/29/24 1401 PHVEN 7.30* PO2VEN 39 ZKI4OIH 20.1* Mixed Venous Sat No results for input(s): I1OASI5 in the last 168 hours. PA Catheter [...] 07/29/24 1621 PHART 7.48* 7.44 7.38 7.37 UMH8SVF 29* 29* 34* 36 PO2ART 71* 109* 141* 71* YAA6QJM 20.6 19.4* 19.5* 20.4 VBG (Venous Blood Gas) Recent Labs 07/29/24 1401 PHVEN 7.30* PO2VEN 39 KEQ6FSH 20.1* Mixed Venous Sat No results for input(s): A4EPYH5 in the last 168 hours. Microbiology: Microbiology Results (Last 30 days) Procedure Component Value Units Date/Time Blood culture [[id number]] Collected: 07/29/241607 Lab Status: Preliminary result Specimen: Blood, Venous Updated: 07/31/241700 Blood Culture No growth at 48 hours Blood culture [[id number]] Collected: 07/29/241607 Lab Status: Preliminary result Specimen: Blood, Venous Updated: 07/31/241700 Blood Culture No growth at 48 hours Imaging: Results for orders placed or performed during the hospital encounter of 07/29/24 XR Chest One View (Exam End: 07/29/2024 2:30 PM) Result Value WORKSTATION ID [id number] Impression 1. No pulmonary edema. 2. No pleural effusion. 3. No pneumothorax. Thank you for letting us participate in the care of this patient. If you are a health care provider and have any questions regarding this report, please contact the number below. For patients who have questions please contact the health patient care director that requested your imaging first. ( 07/30/24) [...] Compared to the overnight study by the migration specialist fellow the impella position is stable. [...] EKG. Patient transferred via air ambulance to [facility] [place] on 07/29 for LHC and LOW to [...] MD Internal Medicine, PGY-1 Cardiology, [facility] 08/01/24 7:13 AM CARDIOLOGY STAFF [...] with him; questions answered. Krystal Parker MD, [facility], [facility] Staff [employer] business continuity consultant * Krystal Parker MD - 07/31/2024 [...] THESE DIAGNOSES BEING MANAGED BY [facility] TEAM: # Anterior STEMI, late-presenting [...] EKG. Patient transferred via air ambulance to [facility] [place] [place] on 07/29 for LHC and LOW to LAD for 100% occlusion. TTE showed apical akinesis and inferior hypokinesis with EF 20%. RHC showed elevated filling pressures. Impella placed and P-level 6 at time of transfer to [facility]. CI initially 1.97, improved to 2.2 After impella. Received about 3 L of fluid during procedural course. Patient initially required norepinephrine 30, epinephrine 10, and vasopressin 0.04 for hemodynamic support, which was weaned upon arrival to [facility] to norepinephrine 20and levo 0.04 [...] PCP: Alexia Mtz APRN PCP phone number: [phone] Date of Admission: 07/29/2024 ( Hospital Day 2 days ) Attending:Krystal Parker MD ID: Korey Montoya is a 74 y.o. male w/ PMH of hypertension, HLD, and BPH on Hospital Day2 for chief concern of chest pain after being found to have ST elevations on EKG. Patient transferred via air ambulance to [facility] [place] [place] on 07/29 for LHC and LOW to [...] 0057 07/29/24 1621 PHART 7.44 7.38 7.37 QOZ7QKF 29* 34* 36 PO2ART 109* 141* 71* CXF3AKN 19.4* 19.5* 20.4 VBG (Venous Blood Gas) Recent Labs 07/29/24 1401 PHVEN 7.30* PO2VEN 39 RWV5RXO 20.1* Mixed Venous Sat No results for input(s): R5DHXE8 in the last 168 hours. PA Catheter [...] 0057 07/29/24 1621 PHART 7.44 7.38 7.37 ZQC9JBE 29* 34* 36 PO2ART 109* 141* 71* CVE7ZAX 19.4* 19.5* 20.4 VBG (Venous Blood Gas) Recent Labs 07/29/24 1401 PHVEN 7.30* PO2VEN 39 LRW5LWI 20.1* Mixed Venous Sat No results for input(s): N1ZRVA9 in the last 168 hours. Microbiology: Microbiology Results (Last 30 days) Procedure Component Value Units Date/Time Blood culture [[id number]] Collected: 07/29/241607 Lab Status: Preliminary result Specimen: Blood, Venous Updated: 07/30/24 170 Blood Culture No Growth at 18-24 hrs. Blood culture [[id number]] Collected: 07/29/241607 Lab Status: Preliminary result Specimen: Blood, Venous Updated: 07/30/241700 Blood Culture No Growth at 18-24 hrs. Imaging: Results for orders placed or performed during the hospital encounter of 07/29/24 XR Chest One View (Exam End: 07/29/2024 2:30 PM) Result Value WORKSTATION ID [id number] Impression 1. No pulmonary edema. 2. No pleural effusion. 3. No pneumothorax. Thank you for letting us participate in the care of this patient. If you are a health care provider and have any questions regarding this report, please contact the number below. For patients who have questions please contact the health patient care director that requested your imaging first. ( 07/30/24) [...] Compared to the overnight study by the migration specialist fellow the impella position is stable. [...] EKG. Patient transferred via air ambulance to [facility] [place] on 07/29 for LHC and LOW to [...] work to optimize volume status while continuing ezpudjg-zkkpek-batkawehnt therapies at this time. Obtain comprehensive TTE. [...] and examined on critical care rounds. Korey Mnotoya is a 74 y.o. male with the [...] EKG. Patient transferred via air ambulance to [facility] [place] [place] on 07/29 for LHC and LOW to LAD for 100% occlusion. TTE showed apical akinesis and inferior hypokinesis with EF 20%. RHC showed elevated filling pressures. Impella placed and P-level 6 at time of transfer to [facility]. CI initially 1.97, improved to 2.2 After impella. Received about 3 L of fluid during procedural course. Patient initially required norepinephrine 30, epinephrine 10, and vasopressin 0.04 for hemodynamic support, which was weaned upon arrival to [facility] to norepinephrine 20and levo 0.04 [...] PCP: Yoel Artis APRN PCP phone number: [phone] Date of Admission: 07/29/2024 ( Hospital Day 1 day ) Attending:Jay Silverio MD ID: Korey Montoya is a 74 y.o. male w/ PMH of hypertension, HLD, and BPH on Hospital Day1 for chief concern of chest pain after being found to have ST elevations on EKG. Patient transferred via air ambulance to [facility] [place] [place] on 07/29 for LHC and LOW to [...] Dobutamine initiated(2.5), Impella maintained on P6 - Preez was placed - Nausea, zofran and benadryl [...] 0057 07/29/24 1621 PHART 7.44 7.38 7.37 OVD8RBE 29* 34* 36 PO2ART 109* 141* 71* CEZ4FIT 19.4* 19.5* 20.4 VBG (Venous Blood Gas) Recent Labs 07/29/24 1401 PHVEN 7.30* PO2VEN 39 SWU3CCW 20.1* Lactate ( Last 12 hours) 1.3 >> 1.2 Mixed Venous Sat No results for input(s): U2HENE0 in the last 168 hours. PA Catheter [...] 0057 07/29/24 1621 PHART 7.44 7.38 7.37 IVC0BEF 29* 34* 36 PO2ART 109* 141* 71* GIA4NMY 19.4* 19.5* 20.4 VBG (Venous Blood Gas) Recent Labs 07/29/24 1401 PHVEN 7.30* PO2VEN 39 JUL2PLD 20.1* Mixed Venous Sat No results for input(s): J6OCOH7 in the last 168 hours. Microbiology: Microbiology Results (Last 30 days) Procedure Component Value Units Date/Time Blood culture [[id number]] Collected: 07/29/24 1608 Lab Status: In process Specimen: Blood, Venous Updated: 07/29/24 162 Blood culture [[id number]] Collected: 07/29/241607 Lab Status: In process Specimen: Blood, Venous Updated: 07/29/24 161 Imaging: Results for orders placed or performed during the hospital encounter of 07/29/24 XR Chest One View (Exam End: 07/29/2024 2:30 PM) Result Value WORKSTATION ID [id number] Impression 1. No pulmonary edema. 2. No pleural effusion. 3. No pneumothorax. Thank you for letting us participate in the care of this patient. If you are a health care provider and have any questions regarding this report, please contact the number below. For patients who have questions please contact the health patient care director that requested your imaging first. Medications Scheduled [...] EKG. Patient transferred via air ambulance to [facility] [place] on 07/29 for LHC and LOW to [...] EKG. Patient transferred via air ambulance to [facility] [place] on 07/29 for LHC and LOW to [...] EKG. Was transferred via air ambulance to [facility] [place] for further management and [facility] demo nstrated 100% occlusion. No significant RCA, [...] (WRVU 4.57) performed by Brandan Mcgovern MD [facility] ENDOSCOPY Significant Family History: Family History [...] mouth. Past Week nitroGLYcerin (NITROLINGUAL) 400 mcg/spray [place], Non-Aerosol 1 spray to anus for proctalgia [...] 3.5 guiding catheter and a 3.5 Fr [facility] 20 Mhz using Manual pullback. Imaging [...] priority for the procedure was Emergent. The [facility] indication for the procedure was STEMI-Immediate PCI [...] atmospheres. A premounted 3.00 x 22 mm Tilly Holmes (LOW) was deployed with a maximum inflation [...] A premounted 3.00 x 08 mm Jeison Holmes (LOW) was deployed with a maximum inflation [...] a limited study performed by a fellow migration specialist to evaluate for cardiogenic shock with [...] Compared to the overnight study by the migration specialist fellow the impella position is stable. [...] EKG. Patient transferred via air ambulance to [facility] [place] [place] on 07/29 for LHC and LOW to [...] PCP: Yoel Artis APRN PCP phone number: [phone] Date of Admission: 07/29/2024 ( Hospital Day 0 days ) Attending:Jay Silverio MD ID: Korey Montoya is a 74 y.o. male w/ PMH of hypertension, HLD, and BPH who presents for chief concern of chest pain after being found to have ST elevations on EKG. Patient transferred via air ambulance to [facility] [place] [place] on 07/29 for LHC and LOW to LAD for 100% occlusion. HPI: Korey Montoya is a 74 y.o. male w/ PMH of hypertension, HLD, and BPH who presents for chief concern of chest pain after being found to have ST elevations on EKG. Patient transferred via air ambulance to [facility] [place] [place] on 07/29 for LHC and LOW to [...] EKG. Was transferred via air ambulance to [facility] [place] [place] for further management and LHC demonstrated 100% [...] (WRVU 4.57) performed by Brandan Mcgovern MD [facility] ENDOSCOPY Family History Family History Problem [...] Blood Gas) No results for input(s): PHART, TOA3PHG, PO2ART, YIZ3XTG, LACTATEVEN, WNT0RGK, PFRATIOART2 in the last 168 hours. VBG (Venous Blood Gas) Recent Labs 07/29/24 1401 PHVEN 7.30* PO2VEN 39 OBV9FPT 20.1* Mixed Venous Sat No results for input(s): I5OBBD5 in the last 168 hours. PA Catheter [...] Blood Gas) No results for input(s): PHART, AQY1WNX, PO2ART, DAK3XIQ, LACTATEVEN, DEJ4KLK, PFRATIOART2 in the last 168 hours. VBG (Venous Blood Gas) Recent Labs 07/29/24 1401 PHVEN 7.30* PO2VEN 39 IDK1MRJ 20.1* Mixed Venous Sat No results for input(s): P6GPZY5 in the last 168 hours. Microbiology: Microbiology [...] EKG. Patient transferred via air ambulance to [facility] [place] [place] on 07/29 for LHC. Found to have 100% occlusion of LAD for which he underwent LOW to LAD.Otherwise no other significant vessel disease. Fahad is currently hemodynamically tenuous but improving upon admission to [facility], requiring hemodynamic support with norepinephrine and vasopressin at time of admission along with mechanical support with Impella device. Reassuringly, he demonstrates decreasing pressor requirements since admission to [facility], with epinephrine completely weaned. He [...] MD Internal Medicine, PGY-3 Cardiology, [facility] 07/29/24 3:14 PM Cardiology Attending [...] MD, FACP, FACC Section of Cardiovascular Medicine [facility] [employer] Scientistcommercial lines sales executive [facility] [employer] [facility] This patient meets or has met [...] to the planned procedure. Hand Hygiene: The recreation program coordinator did perform hand hygiene prior to arterial [...] ease. Good wave form. Ivan Hernandez MD Policy Checker Associated attestation - Rolando Yeh MD - [...] Fahad was quite active prior to his ME. He had even started running (to help [...] MEDICARE Payor: [employer] MANAGED MEDICARE / Plan: [facility] MANAGED MEDICARE COMPLETE / Product [...] of Discharge: 08/04/2024 Gaby Wong RN, CM Pager-[phone] * Initial Assessments - Char Meza OT - 08/03/2024 10:00 AM EST Occupational Therapy Evaluation Patient profile: Korey Montoya is a 74 y.o. male admitted on 07/29/2024 w/ PMH of hypertension, HLD, and BPH who presents for chief concern of chest pain after being found to have ST elevations onEKG. Patient transferred via air ambulance to [facility] [place] [place] on 07/29 for LHC and LOW to LAD for 100% occlusion. Past Medical History: Diagnosis Date ADHD HLD (hyperlipidemia) HTN (hypertension) Tremor Past Surgical History: Procedure Laterality Date HAND SURGERY PRO COLONOSCOPY, REMV LESN, SNARE N/A 08/30/2023 COLONOSCOPY, POLYPECTOMY, REMOVAL LESION BY SNARE (WRVU 4.57) performed by Brandan Mcgovern MD [facility] ENDOSCOPY Social History: Patient lives with [...] evaluation only Total Minutes, Occupational Therapy: 14 ([id number] (evaluation)) 2017 OT Evaluation Code Rationale: Diagnosis [...] and measurable assessment of functional outcome. Pager: [phone] Char Meza OT 08/03/2024 Occupational Therapy Rehabilitation [...] Procedure Note: Patient Name: Korey Montoya : [id number] MR#: [id number] Case Date: 07/31/2024 Tile Inspector: Surgeons and Role: * Maldonado Luis MD - Primary * Quinten Charles PA - Physician Awning Installer Preoperative diagnosis: shock, impella Postoperative diagnosis: * same * Procedure(s) performed: Impella removal form right BASEBALL GLOVE STUFFER Access: Right BASEBALL GLOVE STUFFER A time-out was conducted prior to the [...] Admitted From: Transfer from another hospital Location: [facility] Reason for Hospitalization: chest pain Past [...] 180 days) Any patient receiving care in [place] must abide by [place] law. The hierarchy [...] (i) The agent with financial power of environmental attorney or a conservator appointed in accordance [...] homeless or living in a intermediate (including now)?: No In the past 12 months has the [employer], gas, oil, or water [employer] threatened to shut off services in your [...] it) Home Address confirmed as: Mailing Address: [facility] [address] [place] [address] Physical Address: [address] [place], [place] Social & Family Supports: All names [...] points: Addiction likely Health/Prescription Coverage: Primary Insurance: [facility] [employer] MEDICARE Payor: [facility] [employer] MEDICARE / Plan: [facility] [employer] MEDICARE COMPLETE / Product Type: *No Product type* / Secondary Insurance: N/A ; Prescription Coverage: Yes Preferred Pharmacy: [address] [address] [place] Status: Patient is a : No Primary Care Provider confirmed: Alexia Mtz, FREDRICK [phone] Patient/Caregiver Goals of Treatment: return home Potential [...] 6:25 PM EST 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 CXR and EKG completed. Impella [...] Procedure Note: Patient Name: Korey Montoya : [id number] MR#: [id number] Case Date: 07/29/2024 Tile Inspector: Surgeons and Role: * Vahe Marvin MD - Primary * Susannah Watts PA - Physician Awning Installer Preoperative diagnosis: STEMI Postoperative diagnosis: * STEMI, LAD Artery * * Cardiogenic Shock * Procedure(s) performed: [facility] Coronary angiogram Stent insertion coronary IVUS coronary Venous line insert RH [place] Colette Catheter Vascular closure device Ventricular assist [...] x 22 mm to 14 deonna JEISON Holmes with LIZ 3 flow. Residual distal disease at distal stent, overlapping distal stent was inserted with 3.0 x 8 mm JEISON Holmes. Systolic's in the 80's sustained. Patient re [...] AM EST Office Visit Cardiology at [address] [phone] Mushtaq Murphy, CHANGE OF ADDRESS CLERK Scheduled Orders Name Type Priority Associated Diagnoses [...] CBC (with Diff) (08/04/2024 6:08 AM EST) [facility] White Blood Cell 7.27 4.00 - 9.50 [...] - 0.04 x10(3)/mc L 08/04/2024 6:39 AM [facility] Blood VENOUS BLOOD SPECIMEN / Unknown Venipuncture / Unknown 08/04/2024 6:08 AM EST 08/04/2024 6:19 AM EST Bridgette Stauffer MD HEMATOLOGY ORDERABLE S [facility] [place] [address] * Magnesium (08/04/2024 6:08 AM EST) Magnesium 0.85 0.69 - 1.07 mMol/L 08/04/2024 7:07 AM [facility] Blood VENOUS BLOOD SPECIMEN / Unknown Venipuncture / Unknown 08/04/2024 6:08 AM EST 08/04/2024 6:19 AM EST Bridgette Stauffer MD CHEMISTRY ORDERABLES [facility] [place] [address] * Basic Metabolic Panel (08/04/2024 6:08 AM [...] 22 - 31 mMol/L 08/04/2024 7:07 AM [facility] Anion Gap 8 5 - 15 mMol/L 08/04/2024 7:07 AM [facility] Calcium 8.5 8.5 - 10.5 mg/dL 08/04/2024 7:07 AM [facility] Est Glomerular Filtration Rate - Male 74 mL/min/1. 73 m?? 08/04/2024 7:07 AM [facility] Comment: [...] AM EST Bridgette Stauffer MD CHEMISTRY ORDERABLES [facility] [place] [address] * (ABNORMAL) CBC (with Diff) (08/03/2024 5:16 AM EST) White Blood Cell 7.85 4.00 - 9.50 x10(3)/mc L 08/03/2024 5:29 AM [facility] Red Blood Cell 4.43(L) 4.58 - 5.54 x10(6)/mc L 08/03/2024 5:29 AM [facility] Hemoglobin 11.8(L) 13.7 - 16.5 g/dL 08/03/2024 5:29 AM [facility] Hematocrit 35.9(L) 40.5 - [...] EST Bridgette Stauffer MD HEMATOLOGY ORDERABLE S [facility] [place] [address] * Magnesium (08/03/2024 5:16 AM EST) Magnesium 0.89 0.69 - 1.07 mMol/L 08/03/2024 5:56 AM [facility] Blood VENOUS BLOOD SPECIMEN / Unknown Venipuncture / Unknown 08/03/2024 5:16 AM EST 08/03/2024 5:23 AM EST Bridgette Stauffer MD CHEMISTRY ORDERABLES [facility] [place] [address] * (ABNORMAL) Basic Metabolic Panel (08/03/2024 5:16 [...] - 145 mMol/L 08/03/2024 5:56 AM EST [facility] Potassium 4.5 3.5 - 5.0 mMol/L 08/03/2024 5:56 AM [facility] Chloride 106 98 - 107 mMol/L 08/03/2024 5:56 AM [facility] Carbon Dioxide 21(L) 22 - 31 mMol/L 08/03/2024 5:56 AM [facility] Anion Gap 10 5 - 15 mMol/L 08/03/2024 5:56 AM EST [facility] Calcium 8.3(L) 8.5 - [...] Stauffer MD CHEMISTRY ORDERABLES Performing Organization Address [facility]/ZIP Co de Phone Number [facility] [place] [address] * POC, GLUCOSE (08/02/2024 7:47 AM EST) Glucometer, POC 89 65 - 199 mg/dL 08/02/2024 7:47 AM EST [facility] Comment:Supplemental ranges: <140 mg/dL before meals <180 mg/dL all other times of the day. Blood CAPILLARY BLOOD / Unknown 08/02/2024 7:47 AM EST 08/02/2024 7:47 AM EST Krystal Parker MD POINT OF CARE TEST O RDERABLES Performing Organization Address [facility] Co de Phone Number [facility] [place] [address] * (ABNORMAL) CBC (with Diff) (08/02/2024 4:20 AM EST) White Blood Cell 8.51 4.00 - 9.50 x10(3)/mc L 08/02/2024 4:50 AM EST [facility] Red Blood Cell 4.41(L) 4.58 - 5.54 x10(6)/mc L 08/02/2024 4:50 AM EST [facility] Hemoglobin 12.2(L) 13.7 - 16.5 g/dL 08/02/2024 4:50 AM EST [facility] Hematocrit 35.8(L) 40.5 - [...] - 0.40 x10(3)/mc L 08/02/2024 4:50 AM [facility] Basophil [...] EST Bridgette Stauffer MD HEMATOLOGY ORDERABLE S [facility] [place] [address] * Magnesium (08/02/2024 4:20 AM EST) Magnesium 0.79 0.69 - 1.07 mMol/L 08/02/2024 5:06 AM EST [facility] Blood VENOUS BLOOD SPECIMEN / Unknown Venipuncture / Unknown 08/02/2024 4:20 AM EST 08/02/2024 4:37 AM EST Bridgette Stauffer MD CHEMISTRY ORDERABLES [facility] [place] [address] * (ABNORMAL) Basic Metabolic Panel (08/02/2024 4:20 [...] Stauffer MD CHEMISTRY ORDERABLES Performing Organization Address [facility] Co de Phone Number [facility] [place] [address] * Potassium (08/01/2024 8:39 PM EST) Potassium 4.0 3.5 - 5.0 mMol/L 08/01/2024 9:21 PM EST [facility] Blood VENOUS BLOOD SPECIMEN / Unknown Venipuncture / Unknown 08/01/2024 8:39 PM EST 08/01/2024 8:51 PM EST Jay Silverio MD CHEMISTRY ORDERABL ES Performing Organization Address [facility] Phone Number [facility] [place] [address] * POC, GLUCOSE (08/01/2024 8:35 PM EST) Glucometer, POC 112 65 - 199 mg/dL 08/01/2024 8:36 PM EST [facility] Comment:Supplemental ranges: <140 mg/dL before meals <180 mg/dL all other times of the day. Blood CAPILLARY BLOOD / Unknown 08/01/2024 8:35 PM EST 08/01/2024 8:36 PM EST Krystal Parker MD POINT OF CARE TEST O RDERABLES Performing Organization Address [facility] Co de Phone Number [facility] [place] [address] * POC, GLUCOSE (08/01/2024 4:55 PM EST) Glucometer, POC 99 65 - 199 mg/dL 08/01/2024 4:56 PM EST [facility] Comment:Supplemental ranges: <140 mg/dL before meals <180 mg/dL all other times of the day. Blood CAPILLARY BLOOD / Unknown 08/01/2024 4:55 PM EST 08/01/2024 4:56 PM EST Krystal Parker MD POINT OF CARE TEST O JOSH Performing Organization Address [facility] Co de Phone Number [facility] [place] [address] * POC, GLUCOSE (08/01/2024 12:42 PM EST) Glucometer, POC 130 65 - 199 mg/dL 08/01/2024 12:43 PM EST [facility] Comment:Supplemental ranges: <140 mg/dL before meals <180 mg/dL all other times of the day. Blood CAPILLARY BLOOD / Unknown 08/01/2024 12:42 PM EST 08/01/2024 12:43 PM EST Krystal Parker MD POINT OF CARE TEST O JOSH Performing Organization Address [facility] Co de Phone Number [facility] [place] [address] * (ABNORMAL) Cooximetry, POC (08/01/2024 10:45 AM EST) pO2, Coox 32 mmHg 08/01/2024 10:48 AM [facility] Hemoglobin, Coox 12.9(L) 13.7 - 16.5 g/dL 08/01/2024 10:48 AM EST [facility] Oxyhemoglobin, Coox 66.7 % 08/01/2024 10:48 AM [facility] Carboxyhemoglo bin, Coox 1.1 % 08/01/2024 10:48 AM EST [facility] Comment: Nonsmokers: 0.5-1.5% COHB ?? Smokers: Variable ??but usually less than 10% ?? Toxic: 20-30% COHB ?? Lethal: Greater than 60% COHB Methemoglobin, Coox 0.3 <=1.5 % 08/01/2024 10:48 AM EST [facility] Blood (Mixed Venous) 08/01/2024 10:45 AM EST 08/01/2024 10:48 AM EST Krystal Parker MD POINT OF CARE TEST O RDERABLES Performing Organization Address [facility] Co de Phone Number [facility] [place] [address] * Potassium (08/01/2024 8:20 AM EST) Potassium 4.0 3.5 - 5.0 mMol/L 08/01/2024 10:17 AM EST [facility] Blood ARTERIAL BLOOD / Unknown Venipuncture / Unknown 08/01/2024 8:20 AM EST 08/01/2024 8:30 AM EST Jay Silverio MD CHEMISTRY ORDERABL ES Performing Organization Address [facility] Co de Phone Number [facility] [place] [address] * POC, GLUCOSE (08/01/2024 7:44 AM EST) Glucometer, POC 86 65 - 199 mg/dL 08/01/2024 7:44 AM EST [facility] Comment:Supplemental ranges: <140 mg/dL before meals <180 mg/dL all other times of the day. Blood CAPILLARY BLOOD / Unknown 08/01/2024 7:44 AM EST 08/01/2024 7:44 AM EST Krystal Parker MD POINT OF CARE TEST O RDERASHAY Performing Organization Address [facility]/ZIP Co de Phone Number [facility] [place] [address] * (ABNORMAL) CBC (with Diff) (08/01/2024 4:18 AM EST) White Blood Cell 8.51 4.00 - 9.50 x10(3)/mc L 08/01/2024 4:53 AM EST [facility] Red Blood Cell 4.12(L) 4.58 - 5.54 x10(6)/mc L 08/01/2024 4:53 AM [facility] Hemoglobin 11.2(L) 13.7 - 16.5 g/dL 08/01/2024 4:53 AM [facility] Hematocrit 33.8(L) 40.5 - [...] EST Bridgette Stauffer MD HEMATOLOGY ORDERABLE S [facility] [place] [address] * Magnesium (08/01/2024 4:18 AM EST) Magnesium 0.74 0.69 - 1.07 mMol/L 08/01/2024 5:00 AM [facility] Blood VENOUS BLOOD SPECIMEN / Unknown Venipuncture / Unknown 08/01/2024 4:18 AM EST 08/01/2024 4:29 AM EST Bridgette Stauffer MD CHEMISTRY ORDERABLES [facility] [place] [address] * (ABNORMAL) Basic Metabolic Panel (08/01/2024 4:18 [...] Stauffer MD CHEMISTRY ORDERABLES Performing Organization Address [facility] Co de Phone Number [facility] [place] [address] * POC, GLUCOSE (07/31/2024 8:41 PM EST) [facility] Signature Glucometer, POC 73 65 - 199 mg/dL 07/31/2024 8:41 PM EST [facility] Comment:Supplemental ranges: <140 mg/dL before meals <180 mg/dL all other times of the day. Blood CAPILLARY BLOOD / Unknown 07/31/2024 8:41 PM EST 07/31/2024 8:41 PM EST Krystal Parker MD POINT OF CARE TEST O RDERABLES Performing Organization Address [facility] Co de Phone Number [facility] [place] [address] * CARDIAC CATHETERIZATION (07/31/2024 5:53 PM EST) Anatomical Region Laterality Modality Other Narrative 08/01/2024 12:37 PM EST ?[facility] ? Cardiac Catheterization/Intervention Report ? Patient Name: Korey Montoya. ? Procedure Date: 07/31/2024 ? A #: [id number] ? Primary Physician: Janelle, Maldonado T ? Case #: [id number] ? File Name: [id number] ? Catheterization Order Number: [id number] ? [facility] ? Final Report [place], [place] ? Patient Name: ? Korey P. Montoya ?ID#: ?[id number] ? : ?1950 ? Procedure Date: ? July 31, 2024 ?Case #: ? [id number] ? Room: ? 1 ? Case Physician: [...] ? Comments: ?Impella removed from the right BASEBALL GLOVE STUFFER with deployment of Perclose and ?Angioseal. ??Good [...] Maldonado Luis MD - 08/01/2024 [facility] Cardiac Catheterization/Intervention Report Patient Name: Korey MontoyaToby Procedure Date: 07/31/2024 A #: [id number] Primary Physician: Maldonado Luis Case #: [id number] File Name: [id number] Catheterization Order Number: [id number] [facility] FinalReport [place], [place] Patient Name: Korey Montoya ID#:[id number] :1950 Procedure Date: July 31, 2024 Case [...] was designated as ASA Class IV. The [facility] clinical frailtyscale is 4: Vulnerable. [...] procedures. Comments: Impella removed from the right BASEBALL GLOVE STUFFER with deployment of Perclose and Angioseal. Good [...] * POC, GLUCOSE (07/31/2024 11:04 AM EST) [facility] Glucometer, POC 82 65 - 199 mg/dL 07/31/2024 11:04 AM EST [facility] Comment:Supplemental ranges: <140 mg/dL before meals <180 mg/dL all other times of the day. Blood CAPILLARY BLOOD / Unknown 07/31/2024 11:04 AM EST 07/31/2024 11:04 AM EST Krystal Parker MD POINT OF CARE TEST O RDERABLES [facility] [place] [address] * (ABNORMAL) Blood Gas, Arterial POC (07/31/2024 8:29 AM EST) Pathologist [facility] pH, Arterial 7.48(H) 7.35 - 7.45 07/31/2024 8:30 AM EST [facility] PCO2, Arterial 29(L) 35 - 45 mmHg 07/31/2024 8:30 AM EST [facility] PO2, Arterial 71(L) 85 - 104 mmHg 07/31/2024 8:30 AM EST [facility] Bicarbonate, Arterial 20.6 20.0 - 26.0 mmol/L 07/31/2024 8:30 AM EST [facility] Base Excess, Arterial -3.0 [...] 65 - 199 mg/dL 07/31/2024 8:30 AM [facility] Comment:Glucose Concentratio n >=200 mg/dL plus symptoms is consistent with Diabetes Mellitus. Blood ARTERIAL BLOOD / Unknown 07/31/2024 8:29 AM EST 07/31/2024 8:30 AM EST Krystal Parker MD POINT OF CARE TEST O JOSH Performing Organization Address [facility]/ZIP Co de Phone Number [facility] [place] [address] * POC, GLUCOSE (07/31/2024 7:47 AM EST) Glucometer, POC 82 65 - 199 mg/dL 07/31/2024 7:53 AM [facility] Comment:Supplemental ranges: <140 mg/dL before meals <180 mg/dL all other times of the day. Blood CAPILLARY BLOOD / Unknown 07/31/2024 7:47 AM EST 07/31/2024 7:53 AM EST Krystal Parker MD POINT OF CARE TEST O JOSH Performing Organization Address [facility] Co de Phone Number [facility] [place] [address] * (ABNORMAL) CBC (with Diff) (07/31/2024 1:08 [...] 0.40 x10(3)/mc L 07/31/2024 1:28 AM EST [facility] Basophil % 0.3 % 07/31/2024 1:28 AM EST [facility] Baso Absolute <0.04 0.00 - 0.10 x10(3)/mc L 07/31/2024 1:28 AM EST [facility] Immature Gran % 0.2 % 1:28 AM EST [facility] Immature Gran Absolute <0.04 0.00 - 0.04 x10(3)/mc L 07/31/2024 1:28 AM EST [facility] Blood VENOUS BLOOD SPECIMEN / Unknown Venipuncture / Unknown 07/31/2024 1:08 AM EST 07/31/2024 1:18 AM EST Bridgette Stauffer MD HEMATOLOGY ORDERABLE S Performing Organization Address City/[facility]/ZIP Co de Phone Number [facility] [place] [address] * Magnesium (07/31/2024 1:08 AM EST) Magnesium 0.89 0.69 - 1.07 mMol/L 07/31/2024 1:46 AM EST [facility] Blood VENOUS BLOOD SPECIMEN / Unknown Venipuncture / Unknown 07/31/2024 1:08 AM EST 07/31/2024 1:18 AM EST Bridgette Stauffer MD CHEMISTRY ORDERABLES [facility] [place] [address] * (ABNORMAL) Basic Metabolic Panel (07/31/2024 1:08 AM EST) Glucose 97 65 - 199 mg/dL 07/31/2024 1:46 AM EST [facility] Comment:Glucose Concentratio n >=200 mg/dL plus symptoms is consistent with Diabetes Mellitus. Blood Urea Nitrogen 11 10 - 20 mg/dL 07/31/2024 1:46 AM [facility] Creatinine 0.96 0.80 - 1.50 mg/dL 07/31/2024 1:46 AM EST [facility] Sodium 140 135 - 145 mMol/L 07/31/2024 1:46 AM [facility] Potassium 4.1 3.5 - 5.0 mMol/L 07/31/2024 1:46 AM EST [facility] Chloride 110(H) 98 - 107 mMol/L 07/31/2024 1:46 AM [facility] Carbon Dioxide 24 22 [...] AM EST Bridgette Stauffer MD CHEMISTRY ORDERABLES [facility] [place] [address] * (ABNORMAL) Hepatic Function Panel (07/31/2024 1:08 AM EST) Albumin 3.1(L) 3.2 - 5.2 g/dL 07/31/2024 1:46 AM [facility] Aspartate Aminotransferase 192(H) <=39 unit/L 07/31/2024 1:46 AM [facility] Alanine Aminotransferase 59(H) 0 - 55 unit/L 07/31/2024 1:46 AM [facility] Alkaline Phosphatase 46 40 [...] Parker MD CHEMISTRY ORDERABLES Performing Organization Address City/[facility] Co de Phone Number [facility] [place] [address] * POC, GLUCOSE (07/30/2024 8:03 PM EST) Glucometer, POC 86 65 - 199 mg/dL 07/30/2024 8:03 PM [facility] Comment:Supplemental ranges: <140 mg/dL before meals <180 mg/dL all other times of the day. Blood CAPILLARY BLOOD / Unknown 07/30/2024 8:03 PM EST 07/30/2024 8:03 PM EST Krystal Parker MD POINT OF CARE TEST O RDERABLES [facility] [place] [address] * Potassium (07/30/2024 8:03 PM EST) Potassium 3.8 3.5 - 5.0 mMol/L 07/30/2024 9:13 PM EST [facility] Blood VENOUS BLOOD SPECIMEN / Unknown Venipuncture / Unknown 07/30/2024 8:03 PM EST 07/30/2024 8:22 PM EST Jay Silverio MD CHEMISTRY ORDERABL ES Performing Organization Address [facility] Co de Phone Number [facility] [place] [address] * POC, GLUCOSE (07/30/2024 6:23 PM EST) Glucometer, POC 93 65 - 199 mg/dL 07/30/2024 6:24 PM EST [facility] Comment:Supplemental ranges: <140 mg/dL before meals <180 mg/dL all other times of the day. Blood CAPILLARY BLOOD / Unknown 07/30/2024 6:23 PM EST 07/30/2024 6:24 PM EST Krystal Parker MD POINT OF CARE TEST O RDERABLES Performing Organization Address City/[facility]/ZIP Co de Phone Number [facility] [place] [address] * POC, GLUCOSE (07/30/2024 5:08 PM EST) Glucometer, POC 78 65 - 199 mg/dL 07/30/2024 5:08 PM EST [facility] Comment:Supplemental ranges: <140 mg/dL before meals <180 mg/dL all other times of the day. Blood CAPILLARY BLOOD / Unknown 07/30/2024 5:08 PM EST 07/30/2024 5:08 PM EST Krystal Parker MD POINT OF CARE TEST O RDERABLES Performing Organization Address [facility]/ZIP Co de Phone Number [facility] [place] [address] * (ABNORMAL) Phosphorus (07/30/2024 3:08 PM EST) Phosphorus 2.1(L) 2.5 - 4.5 mg/dL 07/30/2024 3:58 PM EST [facility] Blood VENOUS BLOOD SPECIMEN / Unknown Venipuncture / Unknown 07/30/2024 3:08 PM EST 07/30/2024 3:12 PM EST Jay Silverio MD CHEMISTRY ORDERABL ES Performing Organization Address [facility] Co de Phone Number [facility] [place] [address] * Magnesium (07/30/2024 3:08 PM EST) Magnesium 0.90 0.69 - 1.07 mMol/L 07/30/2024 3:58 PM EST [facility] Blood VENOUS BLOOD SPECIMEN / Unknown Venipuncture / Unknown 07/30/2024 3:08 PM EST 07/30/2024 3:12 PM EST Jay Silverio MD CHEMISTRY ORDERABL ES Performing Organization Address [facility]/ZIP Co de Phone Number [facility] [place] [address] * (ABNORMAL) Basic Metabolic Panel (07/30/2024 3:08 PM EST) Glucose 105 65 - 199 mg/dL 07/30/2024 4:17 PM EST [facility] Comment:Glucose Concentratio n >=200 mg/dL plus symptoms is consistent with Diabetes Mellitus. Blood Urea Nitrogen 13 10 - 20 mg/dL 07/30/2024 4:17 PM EST [facility] Creatinine 1.01 0.80 - 1.50 mg/dL 07/30/2024 4:17 PM EST [facility] Sodium 141 135 - 145 mMol/L 07/30/2024 4:17 PM EST [facility] Potassium 3.4(L) 3.5 - 5.0 mMol/L 07/30/2024 4:17 PM [facility] LABORATORY Chloride 109(H) 98 - 107 mMol/L 07/30/2024 4:17 PM [facility] Carbon Dioxide 21(L) 22 - 31 mMol/L 07/30/2024 4:17 PM [facility] Anion Gap 11 5 - 15 mMol/L 07/30/2024 4:17 PM [facility] Calcium 7.9(L) 8.5 - 10.5 mg/dL 07/30/2024 4:17 PM [facility] Est Glomerular Filtration Rate - Male 79 mL/min/1. 73 m?? 07/30/2024 4:17 PM [facility] Comment: [...] EST Jay Silverio MD CHEMISTRY ORDERABL ES [facility] [place] [address] * ECHO LMTD W CONTRAST W LMTD SPEC DOPP COLOR DOPP (07/30/2024 11:42 AM EST) Anatomical Region Laterality Modality Cardiac Other 07/30/2024 10:2 2 AM EST Narrative 07/30/2024 12:34 PM EST 1 [place] [address] ? Echocardiogram Report Name: KOREY MONTOYA ? Study Date: 07/30/2024 10:22 AMBP: 124/66 mmHg : 1950 ? Height: 168 cm ? Account: [id number] Age: 74 yrs ? Weight: 65 kg Gender: Male ?BSA: 1.7 m2 Ordering Physician: Jay Silverio MD Referring Physician: CHAPARRO FERRERA Performed By: OMERO Millan Reason For Study: ST elevation myocardial infarction involving left anterior descending (LAD) coronary artery Interpreting Fellow: Ivan Hernandez. Exam Location: [facility]. Interpretation Summary Left ventricle is severely [...] Compared to the overnight study by the migration specialist fellow the impella position is stable. 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 Procedure Limited - 51680. Image enhancement Definity was used for both [...] Note Kathleen Banda MD - 07/30/2024 1 [place] [address] Echocardiogram Report Name: KOREY MONTOYA Study Date: 410:22 AMBP: 124/66 mmHg : 1950 Height: 168 cm Account: [id number] Age: 74 yrs Weight: 65 kg Gender: Male BSA: 1.7 m2 Ordering Physician: Jay Silverio MD Referring Physician: CHAPARRO FERRERA Performed By: OMERO Millan Reason For Study: ST elevation myocardial infarction involving leftanterior descending (LAD) coronary artery Interpreting Fellow: Ivan Hernandez. Exam Location: [facility]. Interpretation Summary Left ventricle is severely [...] Compared to the overnight study by the migration specialist fellow the impella positionis stable. The global left ventricular systolic function has improvedpredominantly via recruitment outside the LAD territory which remains akinetic. Procedure Limited - 21846. Image enhancement Definity was used for both [...] - 199 mg/dL 07/30/2024 11:17 AM EST [facility] Comment:Supplemental ranges: <140 mg/dL before meals <180 mg/dL all other times of the day. Blood CAPILLARY BLOOD / Unknown 07/30/2024 11:17 AM EST 07/30/2024 11:17 AM EST Jay Silverio MD POINT OF CARE TEST ORDERABLES [facility] [place] [address] * (ABNORMAL) Blood Gas, Arterial POC (07/30/2024 8:16 AM EST) pH, Arterial 7.44 7.35 - 7.45 07/30/2024 8:17 AM EST [facility] PCO2, Arterial 29(L) 35 - 45 mmHg 07/30/2024 8:17 AM EST [facility] PO2, Arterial 109(H) 85 - 104 mmHg 07/30/2024 8:17 AM EST [facility] Bicarbonate, Arterial 19.4(L) 20.0 [...] Silverio MD POINT OF CARE TEST ORDERABLES [facility] [place] [address] * (ABNORMAL) Troponin - Single (07/30/2024 8:09 AM EST) Troponin-T, High Sensitivity 8,651(H) <=22 ng/L 07/30/2024 9:06 AM EST [facility] Comment: This patient's troponin [...] value can be found in the [facility] Laboratory Test Catalog Troponin - https://[place]-.testcatalog.org/catalogs/565/files/38686 Reference: Fourth [place] Definition of Myocardial Infarction. Journal of the [place] College [employer] Cardiology 2018;72:8159-5799 Blood VENOUS BLOOD SPECIMEN / Unknown Venipuncture / Unknown 07/30/2024 8:09 AM EST 07/30/2024 8:26 AM EST Jay Silverio MD CHEMISTRY ORDERABL ES Performing Organization Address City/[facility]/ZIP Co de Phone Number [facility] [place] [address] * POC, GLUCOSE (07/30/2024 7:40 AM EST) [facility] Glucometer, POC 111 65 - 199 mg/dL 07/30/2024 7:40 AM [facility] Comment:Supplemental ranges: <140 mg/dL before meals <180 mg/dL all other times of the day. Blood CAPILLARY BLOOD / Unknown 07/30/2024 7:40 AM EST 07/30/2024 7:40 AM EST Jay Silverio MD POINT OF CARE TEST ORDERABLES [facility] [place] [address] * (ABNORMAL) CBC (with Diff) (07/30/2024 2:11 AM EST) [facility] White Blood Cell 11.25(H) 4.00 - 9.50 [...] Gran % 0.4 % 2:33 AM EST [facility] Immature Gran Absolute 0.05(H) 0.00 - 0.04 x10(3)/mc L 07/30/2024 2:33 AM [facility] Blood VENOUS BLOOD SPECIMEN / Unknown Venipuncture / Unknown 07/30/2024 2:11 AM EST 07/30/2024 2:22 AM EST Bridgette Stauffer MD HEMATOLOGY ORDERABLE S Performing Organization Address City/[facility]/ZIP Co de Phone Number [facility] [place] [address] * Magnesium (07/30/2024 2:11 AM EST) Pathologist [facility] Magnesium 1.01 0.69 - 1.07 mMol/L 07/30/2024 2:51 AM [facility] Blood VENOUS BLOOD SPECIMEN / Unknown Venipuncture / Unknown 07/30/2024 2:11 AM EST 07/30/2024 2:22 AM EST Bridgette Stauffer MD CHEMISTRY ORDERABLES Performing Organization Address City/[facility] Co de Phone Number [facility] [place] [address] * (ABNORMAL) Basic Metabolic Panel (07/30/2024 2:11 [...] - 5.0 mMol/L 07/30/2024 2:51 AM EST [facility] Chloride 105 98 - 107 mMol/L 07/30/2024 2:51 AM [facility] Carbon Dioxide 19(L) 22 - 31 mMol/L 07/30/2024 2:51 AM [facility] Anion Gap 11 5 - 15 mMol/L 07/30/2024 2:51 AM [facility] Calcium 7.7(L) 8.5 - 10.5 mg/dL 07/30/2024 2:51 AM [facility] Est Glomerular Filtration Rate - Male 91 mL/min/1. 73 m?? 07/30/2024 2:51 AM [facility] Comment: [...] AM EST Bridgette Stauffer MD CHEMISTRY ORDERABLES [facility] [place] [address] * (ABNORMAL) Cooximetry, POC (07/30/2024 1:00 AM EST) pO2, Coox 28 mmHg 07/30/2024 1:03 AM [facility] Hemoglobin, Coox 12.7(L) 13.7 - 16.5 g/dL 07/30/2024 1:03 AM [facility] Oxyhemoglobin, Coox 54.9 % [...] OF CARE TEST ORDERABLES Performing Organization Address City/State/[facility] Co de Phone Number [facility] [place] [address] * (ABNORMAL) Blood Gas, Arterial POC (07/30/2024 [...] Silverio MD POINT OF CARE TEST ORDERABLES [facility] [place] [address] * (ABNORMAL) Troponin - Single (07/29/2024 10:31 PM EST) Troponin-T, High Sensitivity >10,000(H ) <=22 ng/L 07/29/2024 11:03 PM EST [facility] Comment: This patient's troponin [...] value can be found in the [facility] Laboratory Test Catalog Troponin - https://[place]-.testcatalog.org/catalogs/565/files/99888 Reference: Fourth [place] Definition of Myocardial Infarction. Journal of the [place] [employer] 2018;72:0896-0559 Blood VENOUS BLOOD SPECIMEN / Unknown Venipuncture / Unknown 07/29/2024 10:31 PM EST 07/29/2024 10:36 PM EST Yrn Ward MD CHEMISTRY ORDERABL ES [facility] [place] [address] * Potassium (07/29/2024 8:11 PM EST) Potassium 4.1 3.5 - 5.0 mMol/L 07/29/2024 8:52 PM EST [facility] Blood VENOUS BLOOD SPECIMEN / Unknown Venipuncture / Unknown 07/29/2024 8:11 PM EST 07/29/2024 8:16 PM EST Jay Silverio MD CHEMISTRY ORDERABL ES [facility] [place] [address] * (ABNORMAL) Troponin - Single (07/29/2024 8:11 PM EST) Troponin-T, High Sensitivity >10,000(H ) <=22 ng/L 07/29/2024 8:52 PM EST [facility] Comment: This patient's troponin [...] value can be found in the [facility] Laboratory Test Catalog Troponin - https://[facility].testcatalog.org/catalogs/565/files/03601 Reference: Fourth [place] Definition of Myocardial Infarction. Journal of the [place] College [employer]iology 2018;72:0460-7834 Blood VENOUS BLOOD SPECIMEN / Unknown Venipuncture / Unknown 07/29/2024 8:11 PM EST 07/29/2024 8:16 PM EST Jay Silverio MD CHEMISTRY ORDERABL ES [facility] [place] [address] * (ABNORMAL) Phosphorus (07/29/2024 8:11 PM EST) Phosphorus 2.1(L) 2.5 - 4.5 mg/dL 07/29/2024 8:52 PM EST [facility] Blood VENOUS BLOOD SPECIMEN / Unknown Venipuncture / Unknown 07/29/2024 8:11 PM EST 07/29/2024 8:16 PM EST Jay Silverio MD CHEMISTRY ORDERABL ES Performing Organization Address City/[facility]/ZIP Co de Phone Number [facility] [place] [address] * POC, GLUCOSE (07/29/2024 8:09 PM EST) Glucometer, POC 142 65 - 199 mg/dL 07/29/2024 8:09 PM EST [facility] Comment:Supplemental ranges: <140 mg/dL before meals <180 mg/dL all other times of the day. Blood CAPILLARY BLOOD / Unknown 07/29/2024 8:09 PM EST 07/29/2024 8:09 PM EST Jay Silverio MD POINT OF CARE TEST ORDERABLES Performing Organization Address City/[facility]/ZIP Co de Phone Number [facility] [place] [address] * ABORH RECHECK (07/29/2024 6:43 PM EST) ABORH Recheck AB POSITIVE 07/29/2024 10:13 PM EST [facility] Blood VENOUS BLOOD SPECIMEN / Unknown Venipuncture / Unknown 07/29/2024 6:43 PM EST 07/29/2024 7:15 PM EST Jay Silverio MD BLOOD BANK LAB ORD ERABLES Performing Organization Address City/[facility]/ZIP Co de Phone Number [facility] [place] [address] * POC, GLUCOSE (07/29/2024 5:57 PM EST) Glucometer, POC 166 65 - 199 mg/dL 07/29/2024 5:57 PM EST [facility] Comment:Supplemental ranges: <140 mg/dL before meals <180 mg/dL all other times of the day. Blood CAPILLARY BLOOD / Unknown 07/29/2024 5:57 PM EST 07/29/2024 5:57 PM EST Jay Silverio MD POINT OF CARE TEST ORDERABLES Performing Organization Address City/[facility]/ZIP Co de Phone Number [facility] [place] [address] * Type and screen ([facility] [place] [place]/CGP/MAGALIE) (07/29/2024 5:56 PM EST) [facility] ABORH Type AB POSITIVE 07/29/2024 9:44 PM EST [facility] PATIENT HISTORY Not Found 07/29/2024 9:44 PM EST [facility] Expires at [id number] on: 08/01/2024 07/29/2024 9:44 PM EST [facility] ANTIBODY SCREEN AUTOMATED Negative 07/29/2024 9:44 PM EST [facility] T&S only valid at [facility] [place] [place] [facility] 07/29/2024 9:44 PM EST [facility] Blood VENOUS BLOOD SPECIMEN / Unknown Venipuncture / Unknown 07/29/2024 5:56 PM EST 07/29/2024 6:07 PM EST Narrative [facility] - 07/29/2024 9:44 PM EST This Type and Screen result is only valid at the [facility] [place] [place] [facility] Jay Silverio MD BLOOD BANK LAB ORD ERABLES Performing Organization Address City/[facility]/ZIP Co de Phone Number [facility] [place] [address] * (ABNORMAL) Troponin - Single (07/29/2024 4:52 PM EST) [facility] Troponin-T, High Sensitivity >10,000(H ) <=22 ng/L 07/29/2024 5:25 PM EST [facility] Comment: This patient's troponin [...] value can be found in the [facility] Laboratory Test Catalog Troponin - https://one-.testcatalog.org/catalogs/565/files/38725 Reference: Fourth [place] Definition of Myocardial Infarction. Journal of the [place] College [employer] 2018;72:9673-9948 Blood VENOUS BLOOD SPECIMEN / Unknown Venipuncture / Unknown 07/29/2024 4:52 PM EST 07/29/2024 4:57 PM EST Jay Silverio MD CHEMISTRY ORDERABL ES Performing Organization Address City/State/[facility] [place] [address] * EKG 12 Lead (07/29/2024 4:21 PM EST) Ventricular rate 72 BPM MUSE SYSTEM Atrial Rate 72 BPM MUSE SYSTEM P-R Interval 168 ms MUSE SYSTEM QRS Duration 82 ms MUSE SYSTEM Q-T Interval 392 ms MUSE SYSTEM QTC Calculated (Bezet) 429 ms MUSE SYSTEM Calculated P [place] 71 degrees MUSE SYSTEM Calculated R [place] 77 degrees MUSE SYSTEM Calculated T [place] 28 degrees MUSE SYSTEM INTERPRETATION Sinus rhythm with Premature supraventricular complexes and Occasional Premature ventricular complexes Low voltage QRS 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) Lateral injury pattern ACUTE ME / STEMI Abnormal ECG When compared with [...] CARE TEST ORDERABLES Performing Organization Address City/[facility]/ZIP Co de Phone Number [facility] [place] [address] * POC, GLUCOSE (07/29/2024 4:19 PM EST) [facility] Signature Glucometer, POC 185 65 - 199 mg/dL 07/29/2024 4:19 PM [facility] Comment:Supplemental ranges: <140 mg/dL before meals <180 mg/dL all other times of the day. Blood CAPILLARY BLOOD / Unknown 07/29/2024 4:19 PM EST 07/29/2024 4:19 PM EST Jay Silverio MD POINT OF CARE TEST ORDERABLES [facility] [place] [address] * Blood culture (07/29/2024 4:08 PM EST) Blood Culture No growth at 120 hours 08/03/2024 5:01 PM EST [facility] Blood VENOUS BLOOD SPECIMEN / Unknown Venipuncture / Unknown 07/29/2024 4:08 PM EST 07/29/2024 4:15 PM EST Jay Silverio MD MICROBIOLOGY - BLO OD ORDERABLES Performing Organization Address City/[facility] Co de Phone Number [facility] [place] [address] * Blood culture (07/29/2024 4:08 PM EST) Blood Culture No growth at 120 hours 08/03/2024 5:01 PM EST [facility] Blood VENOUS BLOOD SPECIMEN / Unknown Venipuncture / Unknown 07/29/2024 4:08 PM EST 07/29/2024 4:26 PM EST Jay Silverio MD MICROBIOLOGY - BLO OD ORDERABLES Performing Organization Address [facility] Co de Phone Number [facility] [place] [address] * XR Chest One View (07/29/2024 2:30 PM EST) WORKSTATION ID [id number] RAD Anatomical Region Laterality Modality Chest N/A [...] who have questions please contact the health patient care director that requested your imaging first. ? Narrative [...] patients who have questions please contactthe health patient care director that requested your imaging first. Vahe Marvin MD IMG DX ORDERABLES * (ABNORMAL) APTT (07/29/2024 2:03 PM EST) Partial Thromboplastin Time >160(HHH) 25 - 37 sec 07/29/2024 2:56 PM EST [facility] Blood VENOUS BLOOD SPECIMEN / Unknown Venipuncture / Unknown 07/29/2024 2:03 PM EST 07/29/2024 2:13 PM EST Vahe Marvin MD HEMATOLOGY ORDERABLE S Performing Organization Address City/[facility]/ZIP Co de Phone Number [facility] [place] [address] * (ABNORMAL) Prothrombin Time (07/29/2024 2:03 PM EST) Prothrombin Time 14.2(H) 9.4 - 12.5 sec 07/29/2024 2:56 PM EST [facility] International Normalization Ratio 1.3 <=4.9 07/29/2024 2:56 PM EST [facility] Comment: An INR < [...] HEMATOLOGY ORDERABLE S Performing Organization Address City/[facility]/ZIP Co de Phone Number [facility] [place] [address] * CRP, acute inflammation (07/29/2024 2:03 PM EST) C-Reactive Protein <3.0 <=4.9 mg/L 07/29/2024 2:52 PM EST [facility] Blood VENOUS BLOOD SPECIMEN / Unknown Venipuncture / Unknown 07/29/2024 2:03 PM EST 07/29/2024 2:14 PM EST Vahe Marvin MD CHEMISTRY ORDERABLES [facility] [place] [address] * Lipid Panel (Reflex Direct LDL) (07/29/2024 2:03 PM EST) [facility] Signature Cholesterol, Total 133 mg/dL 07/29/2024 2:52 [...] PM EST 07/29/2024 2:14 PM EST Narrative [facility] - 07/29/2024 2:52 PM [...] ACC/AHA Guidelines (most recently Rolf et al. [facility] 06/15/22): * For individuals with [...] MD CHEMISTRY ORDERABLES Performing Organization Address City/[facility]/ZIP Co de Phone Number [facility] [place] [address] * TSH [place] (07/29/2024 2:03 PM EST) Thyroid Stimulating Hormone 0.70 0.27 - 4.20 mcIU/mL 07/29/2024 2:52 PM EST [facility] Blood VENOUS BLOOD SPECIMEN / Unknown Venipuncture / Unknown 07/29/2024 2:03 PM EST 07/29/2024 2:14 PM EST Vahe Marvin MD CHEMISTRY ORDERABLES Performing Organization Address [facility] Co de Phone Number [facility] [place] [address] * Hemoglobin A1c (07/29/2024 2:03 PM EST) Hemoglobin A1c 5.3 4.3 - 5.6 % 07/29/2024 2:41 PM EST [facility] Comment: Per ADA guidelines, [...] blood cell turnover may not be customer solutions representative of glycemic control. Reference Interval: 4.3 - 5.6% 5.7 - 6.4%: Consistent with prediabetes >=6.5%: Consistent with diagnosis of diabetes mellitus Estimated Average Glucose 07/29/2024 2:41 PM EST [facility] Comment:Estimated Average Gl ucose not appropriate for patients over 70 years of age. Blood VENOUS BLOOD SPECIMEN / Unknown Venipuncture / Unknown 07/29/2024 2:03 PM EST 07/29/2024 2:14 PM EST [facility] - 07/29/2024 2:41 PM EST Estimated average glucose (eAG) is calculated from the equation described in: Quinten ALVES, Rikki J, Reno R, et al. ??Translating the A1C assay into estimated average glucose values. ??Diabetes Care 2008:31(8):9067-3052. Additional resources are available on the ADA website (diabetes.org). Vahe Marvin MD CHEMISTRY ORDERABLES [facility] [place] [address] * (ABNORMAL) CBC (with Diff) (07/29/2024 2:03 PM EST) White Blood Cell 19.50(H) 4.00 - 9.50 x10(3)/mc L 07/29/2024 2:18 PM EST [facility] Red Blood Cell 4.81 4.58 - 5.54 x10(6)/mc L 07/29/2024 2:18 PM [facility] Hemoglobin 13.1(L) 13.7 - 16.5 g/dL 07/29/2024 2:18 PM [facility] Hematocrit 40.1(L) 40.5 - 48.5 % 07/29/2024 2:18 PM [facility] Mean Cell Volume 83.4 82.9 - 93.1 fL 07/29/2024 2:18 PM [facility] Mean Cell Hemoglobin 27.2(L) 27.5 - 32.1 pg 07/29/2024 2:18 PM [facility] Mean Cell Hemoglobin Concentration 32.7 32.0 - 35.7 g/dL 07/29/2024 2:18 PM [facility] Platelet 236 145 - 357 x10(3)/mc L 07/29/2024 2:18 PM [facility] Mean Platelet Volume 10.6 7.6 - 12.9 fL 07/29/2024 2:18 PM [facility] RDW Standard Deviation 43.7 [...] 0.04 x10(3)/mc L 07/29/2024 2:18 PM EST [facility] Blood VENOUS BLOOD SPECIMEN / Unknown Venipuncture / Unknown 07/29/2024 2:03 PM EST 07/29/2024 2:13 PM EST Vahe Marvin MD HEMATOLOGY ORDERABLE S Performing Organization Address City/[facility]/ZIP Co de Phone Number [facility] [place] [address] * Phosphorus (07/29/2024 2:03 PM EST) Phosphorus 2.5 2.5 - 4.5 mg/dL 07/29/2024 2:52 PM EST [facility] Blood VENOUS BLOOD SPECIMEN / Unknown Venipuncture / Unknown 07/29/2024 2:03 PM EST 07/29/2024 2:14 PM EST Vahe Marvin MD CHEMISTRY ORDERABLES Performing Organization Address [facility] Co de Phone Number [facility] [place] [address] * Magnesium (07/29/2024 2:03 PM EST) Magnesium 0.70 0.69 - 1.07 mMol/L 07/29/2024 2:52 PM EST [facility] Blood VENOUS BLOOD SPECIMEN / Unknown Venipuncture / Unknown 07/29/2024 2:03 PM EST 07/29/2024 2:14 PM EST Vahe Marvin MD CHEMISTRY ORDERABLES Performing Organization Address [facility] Co de Phone Number [facility] [place] [address] * (ABNORMAL) Comprehensive metabolic panel (07/29/2024 2:03 PM EST) Glucose 243(H) 65 - 199 mg/dL 07/29/2024 3:11 PM [facility] Comment:Glucose Concentratio n >=200 mg/dL plus symptoms is consistent with Diabetes Mellitus. Blood Urea Nitrogen 13 10 - 20 mg/dL 07/29/2024 3:11 PM [facility] Creatinine 0.88 [...] mL/min/1. 73 m?? 07/29/2024 3:11 PM EST [facility] Comment: This patient's estimated [...] PM EST Vahe Marvin MD CHEMISTRY ORDERABLES [facility] [place] [address] * (ABNORMAL) Troponin - Single (07/29/2024 2:03 PM EST) Troponin-T, High Sensitivity >10,000(H ) <=22 ng/L 07/29/2024 2:52 PM EST [facility] Comment: This patient's troponin [...] value can be found in the [facility] Laboratory Test Catalog Troponin - https://one-.testcatalog.org/catalogs/565/files/88464 Reference: Fourth [place] Definition of Myocardial Infarction. Journal of the [place] College [employer] 2018;72:9903-2135 Blood VENOUS BLOOD SPECIMEN / Unknown Venipuncture / Unknown 07/29/2024 2:03 PM EST 07/29/2024 2:14 PM EST Vahe Marvin MD CHEMISTRY ORDERABLES [facility] [place] [address] * (ABNORMAL) Blood Gas, Venous POC (07/29/2024 2:01 PM EST) pH, Venous 7.30(L) 7.32 - 7.42 07/29/2024 2:02 PM EST [facility] PCO2, Venous 42 38 [...] 0.3 <=1.5 % 07/29/2024 2:02 PM EST [facility] Sodium, Venous 137 135 - 145 mmol/L 07/29/2024 2:02 PM EST [facility] Potassium, Venous 3.6 3.5 - 5.0 mmol/L 07/29/2024 2:02 PM EST [facility] Chloride, Venous 103 98 - 107 mmol/L 07/29/2024 2:02 PM EST [facility] Glucose, Venous 229(H) 65 - 199 mg/dL 07/29/2024 2:02 PM EST [facility] Comment:Glucose Concentratio n >=200 mg/dL plus symptoms is consistent with Diabetes Mellitus. Lactate, Venous 3.1(H) 0.5 - 2.2 mmol/L 07/29/2024 2:02 PM [facility] Ionized Calcium, Venous 1.11(L) 1.15 - 1.33 mmol/L 07/29/2024 2:02 PM EST [facility] Blood VENOUS BLOOD SPECIMEN / Unknown 07/29/2024 2:01 PM EST 07/29/2024 2:02 PM EST Vahe Marvin MD POINT OF CARE TEST O RDERABLES Performing Organization Address City/State/[facility] Co de Phone Number [facility] [place] [address] * CARDIAC CATHETERIZATION (07/29/2024 1:20 PM EST) Anatomical Region Laterality Modality Other Narrative 07/29/2024 2:02 PM EST ?[facility] ? Cardiac Catheterization/Intervention Report ? Patient Name: Korey Montoya. ? Procedure Date: 07/29/2024 ? A #: [id number] ? Primary Physician: Shavonne, Vahe S ? Case #: [id number] ? File Name: [id number] ? Catheterization Order Number: [id number] ? [facility] ? Final Report [place], [place] ? Patient Name: ? Korey P. Montoya ?ID#: ?[id number] ? : ?1950 ? Procedure Date: ? July 29, 2024 ?Case #: ? [id number] ? Room: ? 5 ? Case Physician: [...] was Emergent. The indication for ?the laborer pipeline visit is ACS less than or equal [...] 3.5 guiding catheter and a 3.5 Fr [facility] ??20 Mhz using ?Manual pullback. ??Imaging [...] A premounted 3.00 x 22 mm Jeison Holmes (LOW) was deployed ? with a maximum [...] atmospheres. ??A premounted 3.00 x 08 mm Tilly Holmes (LOW) ? was deployed with a maximum [...] administered prior to arrival in the laborer pipeline. ?Recommended anti-platelet/anti-thrombotic regimen: ?Start aspirin 81 mg daily now and continue for 12 months then stop. ?Start clopidogrel 75 mg daily now and continue for indefinitely. ?These recommendations are made at the time of the intervention. Patient ?and provider preferences or a changing clinical situation may require ?modification of this regimen. Consult [facility] [place] Interventional Cardiology for ?questions. ?The 1 year [...] able ?to start weaning his inotropes/vasopressors. A [place] Colette catheter was ?placed demonstrating improvement in [...] ventricular assist device insertion, right heart ?catheterization, [place] (flow directed cath) insertion, access site ?angiography, vascular ultrasound, venous line / sheath insert and vascular ?closure device. ? Vahe Marvin M.D. ? Electronically Signed by: Vahe Marvin M.D. ? Report Finalized: 07/29/2024 ??13:55 ? Report Last Ammended: 07/30/2024 ??10:15 ? Procedure Note Vahe Marvin MD - 07/30/2024 [facility] Cardiac Catheterization/Intervention Report Patient Name: Korey MontoyaToby Procedure Date: 07/29/2024 A #: [id number] Primary Physician: Vahe Marvin Case #: [id number] File Name: [id number] Catheterization Order Number: [id number] [facility] FinalReport [place], [place] Patient Name: Korey Montoya ID#:[id number] :1950 Procedure Date: July 29, 2024 Case [...] procedure was Emergent. Theindication for the laborer pipeline visit is ACS less than or equal [...] 3.5 guiding catheter and a 3.5 Fr [facility] [facility] 20 Mhzusing Manual pullback. Imaging was [...] The priority for the procedure was Emergent.The [facility] indication for the procedure was STEMI-Immediate PCI [...] The lesion was predilated with a 2.00mm [id number] MM balloon with a maximum inflation pressure of 12atmospheres. A premounted 3.00 x 22 mm Tilly Holmes (LOW) wasdeployed with a maximum inflation pressure [...] atmospheres. A premounted 3.00 x 08 mm Tilly Holmes(LOW) was deployed with a maximum inflation pressure [...] administered prior to arrival in the laborer pipeline. Recommended anti-platelet/anti-thrombotic regimen: Start aspirin 81 mg daily now and continue for 12 months then stop. Start clopidogrel 75 mg daily now and continue for indefinitely. These recommendations are made at the time of the intervention.Patient and provider preferences or a changing clinical situation mayrequire modification of this regimen. Consult [facility] [place] Interventional Cardiologyfor questions. The 1 year bleeding [...] wereable to start weaning his inotropes/vasopressors. A [place] Colette catheterwas placed demonstrating improvement in his [...] ventricular assist device insertion, right heart catheterization, [place] (flow directed cath) insertion, access site angiography, [...] [facility] Potassium, POC 3.4(L) 3.5 [...] MD POINT OF CARE TEST O RDERABLES [facility] [place] [address] * (ABNORMAL) BLOOD GAS, POC (07/29/2024 12:12 [...] MD POINT OF CARE TEST O RDERABLES [facility] [place] [address] documented in this encounter Visit Diagnoses Diagnosis [...] based off of anti-Xa levels per the [facility] [place] Anti-Xa Algorithm and inform the ECMO attending. [...] PM EST 20 mEq 100 mL/ hr [facility] [place] [facility] Bag 07/30/2024 9:17 PM EST 20 mEq [...] Routine documented in this encounter Care Teams Identification Officer Relationship Specialty Start Date End Date Alexia Mtz APRN [address] [place] [address] PCP - General Family Medicine 07/30/24 documented as of this encounter
--- OUTSIDE RECORDS SUMMARY | 2024-09-03 11:01 | XMS_ITS | Encounter Summary ---
Author Organization [facility] [place] [address] Care Team Providers Care Silk Screen Printer Helper Name Role Phone Yoel Artis Ute ALCALA Primary Care Provider [phone] Encounter Details Date Type Department Care Team (Late st Contact Info) Description 07/29/2024 Interpretation Only [facility] [address] [place] [phone] Chaparro Montana MD [address] [place] [address] Social History Tobacco Use Types Packs/Day Years Used Date Smoking Tobacco: Former Cigarettes Smokeless Tobacco: Never Alcohol Use Standard Drinks/Week Comments Not Currently 0 (1 standard drink = 0.6 oz pur e alcohol) [facility] Utilities Answer Date Recorded In the past 12 months has [employer], gas, oil, or water [employer] threatened to shut off services in your [...] in a retirement (including now)? No 07/30/2024 IPV Inpatient Questions [...] AM EST Office Visit Cardiology at [address] [address] Mushtaq Murphy APRN documented as of this encounter Procedures Procedure Name Priority Date/Time Associated Diagnosis Comments XR CHEST ONE VIEW STAT 07/29/2024 10: 50 AM EST documented in this encounter Results * XR Chest One View (07/29/2024 10:50 AM EST) PT CLASS E RAD ADMITDTTM [id number] RAD PT RAD MD INFO [id number]^Jordy henry^Chaparro RAD EXAM DESC XCXR1^XR Chest 1 [...] who have questions please contact the health skin care instructor that requested your imaging first. ? Narrative [...] patients who have questions please contactthe health skin care instructor that requested your imaging first. Chaparro Montana MD IMG DX ORDERABLES documented in this encounter Visit Diagnoses Not on filedocumented in this encounter Care Teams Silk Screen Printer Helper Relationship Specialty Start Date End Date Yoel Artis APRN [address] [place] [address] PCP - General Internal Medicine 11/18/22 07/29/24 documented as of this encounter
--- OUTSIDE RECORDS SUMMARY | 2024-09-03 11:01 | XMS_ITS | Encounter Summary ---
Author Organization [facility] Address [facility] [place] [address] Care Team Providers Care Spragger Name Role Phone Yoel Artis Ute ALCALA Primary Care Provider [phone] Encounter Details Date Type Department Care Team (Late st Contact Info) Description 07/29/2024 Orders [place] [address] Susannah Watts PA [facility] [place] [address] Social History Tobacco Use Types Packs/Day Years Used Date Smoking Tobacco: Former Cigarettes Smokeless Tobacco: Never Alcohol Use Standard Drinks/Week Comments Not Currently 0 (1 standard drink = 0.6 oz pur e alcohol) [facility] Utilities Answer Date Recorded In the past 12 months has [employer], gas, oil, or water [employer] threatened to shut off services in your [...] in the past 12 m [facility], were you homeless or living in a [...] AM EST Office Visit Cardiology at [address] [phone] Mushtaq Murphy APRN documented as of this encounter Procedures Procedure Name Priority Date/Time Associated Diagnosis Comments ECHOCARDIOGRAM TRANSTHORACIC Routine 07/30/2024 1:41 AM EST documented in this encounter Results * Echocardiogram Transthoracic (07/30/2024 1:41 AM EST) Anatomical Region Laterality Modality Cardiac Other 07/30/2024 1:41 AM EST Narrative 07/30/2024 8:23 AM EST [address] [place] [address] ? Echocardiogram Report Name: KOREY BERMUDEZ ? Study Date: 07/30/2024 01:41 AM : 1950 ? Height: 168 cm Age: 74 yrs ? Weight: 5.9 kg Gender: Male ?BSA: 0.63 m2 Performed By: Beatris Ching MD Reason For Study: STEMI, VT History: ASCVD, HTN, HLD Interpreting Fellow: Beatris Ching. Interpretation Summary This is a limited study performed by a fellow senior contracts administrator to evaluate for cardiogenic shock with impella [...] study available for comparison. Procedure Limited - 61749. Suboptimal quality. There is sinus bradycardia. Left [...] Note Kathleen Banda MD - 07/30/2024 [address] [place] [address] Echocardiogram Report Name: LARA KOREY Kyrie Study Date: 07/30/2024 01:41AM : 1950 Height: 168 cm Age: 74 yrs Weight: 5.9 kg Gender: Male BSA: 0.63 m2 Performed By: Beatris Ching MD Reason For Study: STEMI, VT History: ASCVD, HTN, HLD Interpreting Fellow: Beatris Ching. Interpretation Summary This is a limited study performed by a fellow senior contracts administrator to evaluate forcardiogenic shock with impella in. [...] study available for comparison. Procedure Limited - 09676. Suboptimal quality. There is sinus bradycardia. Left [...] on filedocumented in this encounter Care Teams Spragger Relationship Specialty Start Date End Date Yoel Artis APRN [address] [place] [address] PCP - General Internal Medicine 11/18/22 07/29/24 documented as of this encounter
--- OUTSIDE RECORDS SUMMARY | 2024-09-03 11:01 | XMS_ITS | Encounter Summary ---
Author Organization [facility] [place] [address] Care Team Providers Care Electronic Scale Subassembler Name Role Phone Alexia Mtz VP CLINICAL RESEARCH Primary Care Provider [phone] Encounter Details Date Type Department Care Team (Late st Contact Info) Description 04/23/2024 Lab [place] [address] Alexia Mtz, VP CLINICAL RESEARCH [address] [place], [place] [id number] Elevated prostate specific antigen (PSA) Social History [...] AM EST Office Visit Cardiology at [address] [address] Mushtaq Murphy APRN documented as of this encounter Procedures Procedure Name Priority Date/Time Associated Diagnosis Comments PSA (ULTRASENSITIVE), TOTAL AND FREE Routine 04/23/2024 1:09 PM EDT Elevated prostate specific antigen (PSA) documented in this encounter Results * (ABNORMAL) PSA (Ultrasensitive), total and free (04/23/2024 1:09 PM EDT) Prostate Specific Antigen (Ultrasensitive) 5.24(H) 0.00-4.00 ng/mL ng/ml 04/23/2024 5:18 PM EDT [facility] Comment:The reference interv al (0 [...] Free 1.1 ng/ml 04/23/2024 5:18 PM EDT [facility] Comment:This result was gene rated using a Vanderdroid Osiel immunoassay. Results obtained from other methods or manufacturers cannot be used interchangeably with this method. PSA % Free 21 % 04/23/2024 5:18 PM EDT [facility] Comment: Probability of finding MANAGER CORPORATE on needle biopsy by age in years: [...] PM EDT Alexia Mtz APRN CHEMISTRY ORDERABLES [facility] [place] [address] documented in this encounter Visit Diagnoses Diagnosis Elevated prostate specific antigen (PSA) documented in this encounter Care Teams Electronic Scale Subassembler Relationship Specialty Start Date End Date Alexia Mtz APRN [address] [place] [address] PCP - General Family Medicine 07/30/24 documented as of this encounter
--- OUTSIDE RECORDS SUMMARY | 2024-09-03 11:01 | XMS_ITS | Encounter Summary ---
Author Organization [facility] [place] [address] Care Team Providers Care Composition Roofer Name Role Phone Yoel Artis Ute ALCALA Primary Care Provider [phone] Encounter Details Date Type Department Care Team (Late st Contact Info) Description 01/16/2024 5:46 PM EDT - 01/16/2024 11:59 PM EDT Hospital Encounter [facility] [address] [place] [address] Chaparro Montana MD [address] [place] [address] Discharge Disposition: Home Social History Tobacco Use [...] evening. 04/17/2023 08/04/2024 nitroGLYcerin (NITROLINGUAL) 400 mcg/spray [place], Non-AerosolIndications:P roctalgia fugax,Fecal smearing,Constipation, unspecified constipation type 1 spray to anus for proctalgia fugax as needed, not to exceed once daily 12 g 06/01/2023 08/04/2024 documented as of this encounter Plan of Treatment Upcoming Encounters Date Type Department Care Team (Late st Contact Info) Description 10/01/2024 10:00 AM EST Office Visit Cardiology at [address] [address] Mushtaq Murphy APRN documented as of this encounter Procedures Procedure Name Priority Date/Time Associated Diagnosis Comments URINE CULTURE Routine 01/16/2024 4:00 PM EDT documented in this encounter Results * Urine culture (01/16/2024 4:00 PM EDT) Urine Culture No growth (Less than 1,000 cfu/ml). [facility] Urine 01/16/2024 4:00 PM EDT 01/16/2024 10:36 PM EDT Narrative Resulting Agency Comment Spec In Lab Chaparro Montana MD MICROBIOLOGY - [facility] ORDERABLES [facility] [place] [address] documented in this encounter Visit Diagnoses Not on filedocumented in this encounter Care Teams Composition Roofer Relationship Specialty Start Date End Date Yoel Artis APRN [address] [place] [address] PCP - General Internal Medicine 11/18/22 07/29/24 documented as of this encounter
--- OUTSIDE RECORDS SUMMARY | 2024-09-03 11:01 | XMS_ITS | Encounter Summary ---
[place] [address] Care Team Providers Care Mask Layout Designer Name Role Phone Yoel Artis FREDRICK Primary Care Provider [phone] Encounter Details Date Type Department Care Team (Late st Contact Info) Description 01/16/2024 Interpretation Only [facility] [address] [place] [address] Chaparro Montana MD [address] [place] [address] Social History Tobacco Use Types Packs/Day Years [...] AM EST Office Visit Cardiology at [address] [address] Mushtaq Murphy APRN documented as of this encounter Procedures Procedure Name Priority Date/Time Associated Diagnosis Comments CT HEAD WO CONTRAST (GENERIC) STAT 01/16/2024 4:17 PM EDT documented in this encounter Results * CT Head wo Contrast (Generic) (01/16/2024 4:17 PM EDT) PT CLASS E RAD ADMITDTTM [id number] RAD PT RAD INFO [id number]^Haniss henry^Chaparro RAD EXAM DESC CTHEAD^CT Head w/o Contrast^RIS [facility] WORKSTATION ID [id number] [facility] Anatomical Region Laterality Modality Head Computed Tomogra phy 01/16/2024 4:03 PM EDT Impressions 01/16/2024 4:25 PM EDT No acute intracranial pathology. Thank you for letting us participate in the care of this patient. ??If you are a health care provider and have any questions regarding this report, please contact the number below. ??For patients who have questions please contact the health complex care nurse practitioner that requested your imaging first. ? Narrative [...] patients who have questions please contactthe health complex care nurse practitioner that requested your imaging first. Chaparro Montana MD IMG CT ORDERABLES documented in this encounter Visit Diagnoses Not on filedocumented in this encounter Care Teams Mask Layout Designer Relationship Specialty Start Date End Date Yoel Artis APRN [address] [place] [address] PCP - General Internal Medicine 11/18/22 07/29/24 documented as of this encounter
--- OUTSIDE RECORDS SUMMARY | 2024-09-03 11:01 | XMS_ITS | Encounter Summary ---
[place] [address] Care Team Providers Care Music Instructor Name Role Phone Yoel Artis FREDRICK Primary Care Provider [phone] Encounter Details Date Type Department Care Team (Late st Contact Info) Description 01/16/[address] [facility] [address] [place] [address] Chaparro Montana MD [address] [place] [address] Social History Tobacco Use Types Packs/Day Years [...] 10:00 AM EST Office Visit Cardiology at [address] [address] Mushtaq Murphy APRN documented as of this encounter Procedures Procedure Name Priority Date/Time Associated Diagnosis Comments XR CHEST ONE VIEW STAT 01/16/2024 4:0 4 PM EDT documented in this encounter Results * XR Chest One View (01/16/2024 4:04 PM EDT) PT CLASS E RAD ADMITDTTM [id number] [facility] PT RAD INFO [id number]^Jordy henry^Chaparro RAD EXAM DESC XCXR1^XR Chest 1 View^RIS [facility] WORKSTATION ID [id number] [facility] Anatomical Region Laterality Modality Chest N/A Radiographic Farida ging 01/16/2024 4:04 PM EDT Impressions 01/16/2024 4:08 PM EDT No active cardiopulmonary disease. Thank you for letting us participate in the care of this patient. ??If you are a health care provider and have any questions regarding this report, please contact the number below. ??For patients who have questions please contact the health grounds caretaker that requested your imaging first. ? Electronically signed by: Alexey Winslow MD, [facility] ([phone]), at 01/16/2024 4:08 PM Narrative 01/16/2024 4:08 [...] patients who have questions please contactthe health grounds caretaker that requested your imaging first. Electronically signed by: Alexey iWnslow MD, [facility]([phone]), at 01/16/2024 4:08 PM Chaparro Montana MD IMG DX ORDERABLES documented in this encounter Visit Diagnoses Not on filedocumented in this encounter Care Teams Music Instructor Relationship Specialty Start Date End Date Yoel Artis APRN [address] [place] [address] PCP - General Internal Medicine 11/18/22 07/29/24 documented as of this encounter
--- OUTSIDE RECORDS SUMMARY | 2024-09-03 11:01 | XMS_ITS | Encounter Summary ---
[place] [address] Care Team Providers Care Order Runner Name Role Phone Yoel Artis FREDRICK Primary Care Provider [phone] Encounter Details Date Type Department Care Team (Late st Contact Info) Description 07/28/2024 Interpretation Only [address] [address] Quinten Coffey MD [address] [place] [address] Social History Tobacco Use Types Packs/Day Years [...] AM EST Office Visit Cardiology at [address] [address] Mushtaq Murphy APRN documented as of this encounter Procedures Procedure Name Priority Date/Time Associated Diagnosis Comments XR CHEST ONE VIEW STAT 07/28/2024 10: 22 AM EST documented in this encounter Results * XR Chest One View (07/28/2024 10:22 AM EST) PT CLASS E RAD ADMITDTTM [id number] RAD PT RAD INFO [id number]^Alexx ^Quinten RAD EXAM DESC XCXR1^XR Chest 1 [...] who have questions please contact the health personal care attendant that requested your imaging first. ? Electronically signed by: Darvin Noyola, [facility] ([phone]), at 07/28/2024 11:18 AM Narrative 07/28/2024 11:18 [...] patients who have questions please contactthe health personal care attendant that requested your imaging first. Quinten Coffey MD IMG DX ORDERABLES documented in this encounter Visit Diagnoses Not on filedocumented in this encounter Care Teams Order Runner Relationship Specialty Start Date End Date Yoel Artis APRN [address] [place] [address] PCP - General Internal Medicine 11/18/22 07/29/24 documented as of this encounter
--- OUTSIDE RECORDS SUMMARY | 2024-09-03 11:01 | XMS_ITS | Encounter Summary ---
[place] [address] Care Team Providers Care Manager Area Name Role Phone Alexia Mtz ASSEMBLER WET WASH Primary Care Provider Encounter Details Date Type Department Care Team (Late st Contact Info) Description 07/29/2024 External [place] [phone] Social History Tobacco Use Types Packs/Day Years Used Date Smoking Tobacco: Former Cigarettes Smokeless Tobacco: Never Alcohol Use Standard Drinks/Week Comments Not Currently 0 (1 standard drink = 0.6 oz pur e alcohol) [facility] Utilities Answer Date Recorded In the [...] time in the past 12 m [facility], were you homeless or living in [...] AM EST Office Visit Cardiology at [address] [address] Mushtaq Murphy APRN documented as of this [...] filedocumented in this encounter Care Teams Manager Area Relationship Specialty Start Date End Date Alexia Mtz APRN [address] [place] [address] PCP - General Family Medicine 07/30/24 documented as of this encounter
--- OUTSIDE RECORDS SUMMARY | 2024-09-03 11:01 | XMS_ITS | Encounter Summary ---
Author Organization [facility] Address [facility] [place] [address] Care Team Providers Care Tile Ditcher Name Role Phone Yoel Artis Ute ALCALA Primary Care Provider [phone] Reason for Visit * Auth/Cert (Routine) Specialty Diagnoses / Procedures Referred By Theodore t Referred To Contact Diagnoses AIRO Procedures [place] [employer] [place] [employer] [facility] Referral ID Status Reason Start Date Expiration Date Visits Re quested Visits Authorized [id number] 1 1 Encounter Details Date Type Department Care Team (Latest Contact Info) Description 07/29/2024 6:32 PM EST - 07/29/2024 11:59 PM EST Hospital Encounter [facility] at [address] [address] Arvin Becerra MD [facility] [place] [address] Discharge Disposition: Home Social History Tobacco Use Types Packs/Day Years Used Date Smoking Tobacco: Former Cigarettes Smokeless Tobacco: Never Alcohol Use Standard Drinks/Week Comments Not Currently 0 (1 standard drink = 0.6 oz pur e alcohol) [facility] Utilities Answer Date Recorded In the [...] any time in the past 12 m [facility], were you homeless or living in a senior living (including now)? No 07/30/2024 [facility] IPV Inpatient [...] 04/17/2023 08/04/2024 nitroGLYcerin (NITROLINGUAL) 400 mcg/spray [place], Non-AerosolIndications: Proctalgia fugax,Fecal smearing,Constipation, unspecified constipation type 1 spray to anus for proctalgia fugax as needed, not to exceed once daily 12 g 06/01/2023 08/04/2024 documented as of this encounter Plan of Treatment Upcoming Encounters Date Type Department Care Team (Late st Contact Info) Description 10/01/2024 10:00 AM EST Office Visit Cardiology at [address] [phone] Mushtaq Murphy APRN documented as of this encounter Visit Diagnoses Not on filedocumented in this encounter Care Teams Tile Ditcher Relationship Specialty Start Date End Date Yoel Artis APRN [address] [place] [address] PCP - General Internal Medicine 11/18/22 07/29/24 documented as of this encounter
--- OUTSIDE RECORDS SUMMARY | 2024-09-03 11:01 | XMS_ITS | Encounter Summary ---
[place] [address] Care Team Providers Care Button Inspector Name Role Phone Yoel Artis Ute ALCALA Primary Care Provider [phone] Reason for Visit * Auth/Cert (Routine) Specialty Diagnoses / Procedures Referred By Theodore t Referred To Contact Diagnoses STEMI (ST elevation myocardial infarction) STEMI Procedures ER IPI Vahe Marvin MD [facility] [place] [address] [facility] Referral ID Status Reason Start Date Expiration Date Visits Re quested Visits Authorized [id number] 1 1 Encounter Details Date Type Department Care Team (Late st Contact Info) Description 07/29/2024 12:00 PM EST - 07/29/2024 12:54 PM EST Surgery [place] [address] Vahe Marvin MD [facility] [place] [address] CARDIAC CATHETERIZATION Social History Tobacco Use Types Packs/Day Years Used Date Smoking Tobacco: Former Cigarettes Smokeless Tobacco: Never Alcohol Use Standard Drinks/Week Comments Not Currently 0 (1 standard drink = 0.6 oz pur e alcohol) [facility] Utilities Answer Date Recorded In the past 12 months has [employer], gas, oil, or water company threatened [...] were you homeless or living in a group home (including now)? No 07/30/2024 IPV Inpatient [...] Korey Montoya Patient Age: 74 y.o. Language: [place] Citizen Race: White Ethnicity: Not nor Admit date: [...] please contact your inpatient physician through the [facility] Human Factors Engineer . Issues afterhours and on weekends will [...] EKG. Patient transferred via air ambulance to [facility] on 07/29 for LHC and LOW to [...] EKG. Was transferred via air ambulance to [facility] for further management and LHC demonstrated 100% occlusion. No significant RCA, LMCA, or LCX disease. LOW placed in LAD with some residual distal disease meriting placement of overlapping distal stent. TTE showed apical akinesis and inferior hypokinesis with EF 20%. RHC showed elevated filling pressures. Impella placed and P-level 6 at time of transfer to [facility]. CI initially 1.97, improved to [...] the next year. Access was via right [facility] and this sitewas clean, dry and intact [...] for Chest pain. Replaces: nitroGLYcerin 400 mcg/spray [place], Non-Aerosol 0.4 mg Quantity: 90 tablet Refills: [...] Refills: 0 STOPPED Medications nitroGLYcerin 400 mcg/spray [place], Non-Aerosol Commonly known as: NITROLINGUAL Replaced by: [...] of one year. After this time, your toy assembler wood will determine if you need to continue [...] away. Stay on the phone. The emergency mulcher operator will tell you what to do. [...] appointments: During 8am-5pm Tuesday through Tuesday call [phone] to speak with a nurse in the cardiology clinic All other times call [phone] and ask to speak to the note keeper manager of application development. Follow up Appointments: PCP Alexia Mtz, ROCK SINGER [phone]. Please call to establish a follow up appointment within 1-2 weeks of discharge. Cardiology. Referral to heart failure has been sent. General Instructions None Future Appointments and Orders Future Orders Complete By Expires Referral to Cardiac Rehab [[id number] Custom] As directed Process Instructions: If no progress note charted, please enter Clinical details in comments. Scheduling Instructions: Questions: My question or request is: STEMI, PCI- cardiac rehab at [facility] Referral to Cardiology [REF12 [...] of one year. After this time, your toy assembler wood will determine if you need to continue [...] away. Stay on the phone. The emergency mulcher operator will tell you what to do. [...] appointments: During 8am-5pm Tuesday through Tuesday call [phone] to speak with a nurse in the cardiology clinic All other times call [phone] and ask to speak to the note keeper manager of application development. Follow up Appointments: PCP Alexia Mtz, ROCK SINGER [phone]. Please call to establish a follow up [...] EKG. Patient transferred via air ambulance to [facility] on 07/29 for LHC and LOW to LAD for 100% occlusion Social History: Pt lives with his in a 1 level home with 2 NAOMI. 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 He [...] Total time: 35 (tef) minutes Time IN/OUT: [id number] ZAIDA DUBOSE PT Pager: [phone] Physical Therapy Inpatient Rehabilitation Department * Yrn Velazquez MD - 08/03/2024 10:38 AM EST CV HOSPITALIST 2 - [facility] DAILY PROGRESS NOTE Page [phone] to reach a provider 04/04 Admit Date: [...] or before 29-JUL-2024) Lateral injury pattern ACUTE MO / STEMI Abnormal ECG When compared with [...] Compared to the overnight study by the manager of application development fellow the impella position is stable. 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 [facility] 07/29/24 Conclusions: * One vessel coronary artery disease (LAD) * Mild pulmonary hypertension * Elevated pulmonary capillary wedge pressure * Successful stent insertion of the proximal LAD lesion * See Dual Antiplatelet (DAPT) Recommendations above * Successful impella placement for cardiogenic shock. Telemetry: I have personally reviewed and interpreted the telemetry from the last 24 hours. [facility] ASSESSMENT: Korey Montoya is a 74 y.o. male w/ PMH of hypertension, HLD, and BPH who presents for chief concern of chest pain after being found to have ST elevations on EKG. Patient transferred via air ambulance to [facility] on 07/29 for LHC and LOW to [...] be determined OT: PCP Alexia Mtz, FREDRICK [phone] * Zaida Dubose, PT - 08/02/2024 2:08 PM EST Physical Therapy Evaluation Patient profile: Korey Montoya is a 74 y.o. male w/ PMH of hypertension, HLD, and BPH who presents for chief concern of chest pain after being found to have ST elevations on EKG. Patient transferred via air ambulance to [facility] on 07/29 for LHC and LOW to LAD for 100% occlusion Social History: Pt lives with his in a 1 level home with 2 NAOMI. 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 He drives. home to assist as needed. Precautions/Special Considerations: At risk to fall; recent STEMI Mobility and Positioning Recommendations: OOB to chair with 1 cg assist; rolling walker Pt to ambulate 3-4x/daily with 1 assist; walker or trial without device Please encourage up to chair for meal times as able. Pt seen for evaluation today in the [facility]. Pt in the bed at [...] Total time: 37 (eval) minutes Time IN/OUT: [id number] ZAIDA DUBOSE PT Pager: [phone] Physical Therapy Inpatient Rehabilitation Department * Gagan [...] EKG. Patient transferred via air ambulance to [facility] on 07/29 for LHC and LOW to LAD for 100% occlusion. TTE showed apical akinesis and inferior hypokinesis with EF 20%. RHC showed elevated filling pressures. Impella placed and P-level 6 at time of transfer to [facility]. CI initially 1.97, improved to [...] PCP: Alexia Mtz APRN PCP phone number: [phone] Date of Admission: 07/29/2024 ( Hospital Day 4 days ) Attending:Bridgette Stauffer MD ID: Korey Montoya is a 74 y.o. male w/ PMH of hypertension, HLD, and BPH on Hospital Day4 for chief concern of chest pain after being found to have ST elevations on EKG. Patient transferred via air ambulance to [facility] on 07/29 for LHC and LOW to [...] 07/29/24 1621 PHART 7.48* 7.44 7.38 7.37 [id number] 29* 29* 34* 36 PO2ART 71* 109* 141* 71* PXE4LYT 20.6 19.4* 19.5* 20.4 VBG (Venous Blood Gas) Recent Labs 07/29/24 1401 PHVEN 7.30* PO2VEN 39 YNE9PIR 20.1* Mixed Venous Sat No results for input(s): B7SUGP4 in the last 168 hours. Objective: Vitals [...] 07/29/24 1621 PHART 7.48* 7.44 7.38 7.37 MAC7PPS 29* 29* 34* 36 PO2ART 71* 109* 141* 71* NYW6PPI 20.6 19.4* 19.5* 20.4 VBG (Venous Blood Gas) Recent Labs 07/29/24 1401 PHVEN 7.30* PO2VEN 39 OZB4DVA 20.1* Mixed Venous Sat No results for input(s): Z1YGZC2 in the last 168 hours. Microbiology: Microbiology Results (Last 30 days) Procedure Component Value Units Date/Time Blood culture [[id number]] Collected: 07/29/24 160 Lab Status: Preliminary result Specimen: Blood, Venous Updated: 08/01/24 170 Blood Culture No growth at 72 hours Blood culture [[id number]] Collected: 07/29/241607 Lab Status: Preliminary result Specimen: Blood, Venous Updated: 08/01/24 170 Blood Culture No growth at 72 hours Imaging: Results for orders placed or performed during the hospital encounter of 07/29/24 XR Chest One View (Exam End: 07/29/2024 2:30 PM) Result Value WORKSTATION ID [id number] Impression 1. No pulmonary edema. 2. No pleural effusion. 3. No pneumothorax. Thank you for letting us participate in the care of this patient. If you are a health care provider and have any questions regarding this report, please contact the number below. For patients who have questions please contact the health home health caregiver that requested your imaging first. Electronically signed by: Chris Candelaria MD, [facility] ([phone]), at 07/29/2024 3:21 PM TTE ( 07/30/24) [...] Compared to the overnight study by the manager of application development fellow the impella position is stable. The [...] EKG. Patient transferred via air ambulance to [facility] on 07/29 for LHC and LOW to [...] today). Transfer to floor. Krystal Parker MD, [facility] Staff Victorian Literature Professor associate spa director * Gagan Catherine MD - 08/01/2024 11:12 [...] EKG. Patient transferred via air ambulance to [facility] on 07/29 for LHC and LOW to LAD for 100% occlusion. TTE showed apical akinesis and inferior hypokinesis with EF 20%. RHC showed elevated filling pressures. Impella placed and P-level 6 at time of transfer to [facility]. CI initially 1.97, improved to 2.2 After impella. Received about 3 L of fluid during procedural course. Patient initially required norepinephrine 30, epinephrine 10, and vasopressin 0.04 for hemodynamic support, which was weaned upon arrival to [facility] to norepinephrine 20and levo 0.04 [...] PCP: Alexia Mtz APRN PCP phone number: [phone] Date of Admission: 07/29/2024 ( Hospital Day 3 days ) Attending:Krystal Parker MD ID: Korey Montoya is a 74 y.o. male w/ PMH of hypertension, HLD, and BPH on Hospital Day3 for chief concern of chest pain after being found to have ST elevations on EKG. Patient transferred via air ambulance to [facility] on 07/29 for LHC and LOW to [...] 07/29/24 1621 PHART 7.48* 7.44 7.38 7.37 [id number] 29* 29* 34* 36 PO2ART 71* 109* 141* 71* WTL4YNT 20.6 19.4* 19.5* 20.4 VBG (Venous Blood Gas) Recent Labs 07/29/24 1401 PHVEN 7.30* PO2VEN 39 FRV0RKS 20.1* Mixed Venous Sat No results for input(s): O1RUXF6 in the last 168 hours. PA Catheter [...] 07/29/24 1621 PHART 7.48* 7.44 7.38 7.37 LXT5QRE 29* 29* 34* 36 PO2ART 71* 109* 141* 71* SGT6COJ 20.6 19.4* 19.5* 20.4 VBG (Venous Blood Gas) Recent Labs 07/29/24 1401 PHVEN 7.30* PO2VEN 39 GPK3EEP 20.1* Mixed Venous Sat No results for input(s): Q2XGLY1 in the last 168 hours. Microbiology: Microbiology Results (Last 30 days) Procedure Component Value Units Date/Time Blood culture [[id number]] Collected: 07/29/241607 Lab Status: Preliminary result Specimen: Blood, Venous Updated: 07/31/241700 Blood Culture No growth at 48 hours Blood culture [[id number]] Collected: 07/29/241607 Lab Status: Preliminary result Specimen: Blood, Venous Updated: 07/31/241700 Blood Culture No growth at 48 hours Imaging: Results for orders placed or performed during the hospital encounter of 07/29/24 XR Chest One View (Exam End: 07/29/2024 2:30 PM) Result Value WORKSTATION ID [id number] Impression 1. No pulmonary edema. 2. No pleural effusion. 3. No pneumothorax. Thank you for letting us participate in the care of this patient. If you are a health care provider and have any questions regarding this report, please contact the number below. For patients who have questions please contact the health home health caregiver that requested your imaging first. Electronically signed by: Chris Candelaria MD, [facility] ([phone]), at 07/29/2024 3:21 PM TTE ( 07/30/24) [...] Compared to the overnight study by the manager of application development fellow the impella position is stable. The [...] EKG. Patient transferred via air ambulance to [facility] on 07/29 for LHC and LOW to [...] with him; questions answered. Krystal Parker MD, [facility] Staff Victorian Literature Professor associate spa director * Krystal Parker MD - 07/31/2024 1:06 [...] EKG. Patient transferred via air ambulance to [facility] on 07/29 for LHC and LOW to LAD for 100% occlusion. TTE showed apical akinesis and inferior hypokinesis with EF 20%. RHC showed elevated filling pressures. Impella placed and P-level 6 at time of transfer to [facility]. CI initially 1.97, improved to 2.2 After impella. Received about 3 L of fluid during procedural course. Patient initially required norepinephrine 30, epinephrine 10, and vasopressin 0.04 for hemodynamic support, which was weaned upon arrival to [facility] to norepinephrine 20and levo 0.04 [...] PCP: Alexia Mtz APRN PCP phone number: [phone] Date of Admission: 07/29/2024 ( Hospital Day 2 days ) Attending:Krystal Parker MD ID: Korey Montoya is a 74 y.o. male w/ PMH of hypertension, HLD, and BPH on Hospital Day2 for chief concern of chest pain after being found to have ST elevations on EKG. Patient transferred via air ambulance to [facility] on 07/29 for LHC and LOW to [...] 0057 07/29/24 1621 PHART 7.44 7.38 7.37 NHV2LXQ 29* 34* 36 PO2ART 109* 141* 71* KXL8AUS 19.4* 19.5* 20.4 VBG (Venous Blood Gas) Recent Labs 07/29/24 1401 PHVEN 7.30* PO2VEN 39 IGM7ECB 20.1* Mixed Venous Sat No results for input(s): K2WXDC5 in the last 168 hours. PA Catheter [...] 0057 07/29/24 1621 PHART 7.44 7.38 7.37 DNN8OOK 29* 34* 36 PO2ART 109* 141* 71* PHW1AGA 19.4* 19.5* 20.4 VBG (Venous Blood Gas) Recent Labs 07/29/24 1401 PHVEN 7.30* PO2VEN 39 CBP7DIV 20.1* Mixed Venous Sat No results for input(s): C9EAID5 in the last 168 hours. Microbiology: Microbiology Results (Last 30 days) Procedure Component Value Units Date/Time Blood culture [[id number]] Collected: 07/29/241607 Lab Status: Preliminary result Specimen: Blood, Venous Updated: 07/30/241700 Blood Culture No Growth at 18-24 hrs. Blood culture [[id number]] Collected: 07/29/241607 Lab Status: Preliminary result Specimen: Blood, Venous Updated: 07/30/241700 Blood Culture No Growth at 18-24 hrs. Imaging: Results for orders placed or performed during the hospital encounter of 07/29/24 XR Chest One View (Exam End: 07/29/2024 2:30 PM) Result Value WORKSTATION ID [id number] Impression 1. No pulmonary edema. 2. No pleural effusion. 3. No pneumothorax. Thank you for letting us participate in the care of this patient. If you are a health care provider and have any questions regarding this report, please contact the number below. For patients who have questions please contact the health home health caregiver that requested your imaging first. Electronically signed by: Chris Candelaria MD, [facility] ([phone]), at 07/29/2024 3:21 PM TTE ( 07/30/24) [...] Compared to the overnight study by the manager of application development fellow the impella position is stable. The [...] EKG. Patient transferred via air ambulance to [facility] on 07/29 for LHC and LOW to [...] work to optimize volume status while continuing riybsjn-lcuhlx-oeuqejenue therapies at this time. Obtain comprehensive TTE. [...] EKG. Patient transferred via air ambulance to [facility] on 07/29 for LHC and LOW to LAD for 100% occlusion. TTE showed apical akinesis and inferior hypokinesis with EF 20%. RHC showed elevated filling pressures. Impella placed and P-level 6 at time of transfer to [facility]. CI initially 1.97, improved to 2.2 After impella. Received about 3 L of fluid during procedural course. Patient initially required norepinephrine 30, epinephrine 10, and vasopressin 0.04 for hemodynamic support, which was weaned upon arrival to [facility] to norepinephrine 20and levo 0.04 [...] PCP: Yoel Artis APRN PCP phone number: [phone] Date of Admission: 07/29/2024 ( Hospital Day 1 day ) Attending:Aubree Silverio MD ID: Korey Montoya is a 74 y.o. male w/ PMH of hypertension, HLD, and BPH on Hospital Day1 for chief concern of chest pain after being found to have ST elevations on EKG. Patient transferred via air ambulance to [facility] on 07/29 for LHC and LOW to [...] 0057 07/29/24 1621 PHART 7.44 7.38 7.37 NLK6ZOT 29* 34* 36 PO2ART 109* 141* 71* OBV2ITA 19.4* 19.5* 20.4 VBG (Venous Blood Gas) Recent Labs 07/29/24 1401 PHVEN 7.30* PO2VEN 39 DQJ1RWS 20.1* Lactate ( Last 12 hours) 1.3 >> 1.2 Mixed Venous Sat No results for input(s): P4PGPN0 in the last 168 hours. PA Catheter [...] 0057 07/29/24 1621 PHART 7.44 7.38 7.37 YIG2OZB 29* 34* 36 PO2ART 109* 141* 71* FLJ0NTX 19.4* 19.5* 20.4 VBG (Venous Blood Gas) Recent Labs 07/29/24 1401 PHVEN 7.30* PO2VEN 39 ZXU3CTJ 20.1* Mixed Venous Sat No results for input(s): W9ZOBJ6 in the last 168 hours. Microbiology: Microbiology Results (Last 30 days) Procedure Component Value Units Date/Time Blood culture [[id number]] Collected: 07/29/24 1608 Lab Status: In process Specimen: Blood, Venous Updated: 07/29/24 1626 Blood culture [[id number]] Collected: 07/29/24 1608 Lab Status: In process Specimen: Blood, Venous Updated: 07/29/24 1615 Imaging: Results for orders placed or performed during the hospital encounter of 07/29/24 XR Chest One View (Exam End: 07/29/2024 2:30 PM) Result Value WORKSTATION ID [id number] Impression 1. No pulmonary edema. 2. No pleural effusion. 3. No pneumothorax. Thank you for letting us participate in the care of this patient. If you are a health care provider and have any questions regarding this report, please contact the number below. For patients who have questions please contact the health home health caregiver that requested your imaging first. Medications Scheduled [...] EKG. Patient transferred via air ambulance to [facility] on 07/29 for LHC and LOW to [...] EKG. Patient transferred via air ambulance to [facility] on 07/29 for LHC and LOW to [...] EKG. Was transferred via air ambulance to [facility] for further management and C demo nstrated 100% occlusion. No significant RCA, LMCA, or LCX disease. LOW placed in LAD with some residual distal disease meriting placement of overlapping distal stent. TTE showed apical akinesis and inferior hypokinesis with EF 20%. RHC showed elevated filling pressures. Impella placed and P-level 6 at time of transfer to [facility]. CI initially 1.97, improved to 2.2 After impella. Received about 3 L of fluid during procedural course. Patient initially required norepinephrine, epinephrine, and vasopressin for hemodynamic support, which was weaned upon arrival to [facility] to norepinephrine 20 and levo [...] performed by Brandan Mcgovern MD [facility] ENDOSCOPY Significant Family History: Family History Problem [...] mouth. Past Week nitroGLYcerin (NITROLINGUAL) 400 mcg/spray [place], Non-Aerosol 1 spray to anus for proctalgia [...] 3.5 guiding catheter and a 3.5 Fr [facility] [place] [facility] 20 Mhz using Manual pullback. Imaging [...] the procedure was Emergent. The [facility] indication for the [...] A premounted 3.00 x 22 mm [place] (LOW) was deployed with a maximum inflation [...] atmospheres. A premounted 3.00 x 08 mm [place] (LOW) was deployed with a maximum inflation [...] a limited study performed by a fellow manager of application development to evaluate for cardiogenic shock with impella [...] Compared to the overnight study by the manager of application development fellow the impella position is stable. The [...] EKG. Patient transferred via air ambulance to [facility] on 07/29 for LHC and LOW to [...] PCP: Yoel Artis APRN PCP phone number: [phone] Date of Admission: 07/29/2024 ( Hospital Day 0 days ) Attending:Aubree Silverio MD ID: Korey Montoya is a 74 y.o. male w/ PMH of hypertension, HLD, and BPH who presents for chief concern of chest pain after being found to have ST elevations on EKG. Patient transferred via air ambulance to [facility] on 07/29 for LHC and LOW to LAD for 100% occlusion. HPI: Korey Montoya is a 74 y.o. male w/ PMH of hypertension, HLD, and BPH who presents for chief concern of chest pain after being found to have ST elevations on EKG. Patient transferred via air ambulance to [facility] on 07/29 for LHC and LOW to [...] EKG. Was transferred via air ambulance to [facility] for further management and LHC demonstrated 100% [...] performed by Brandan Mcgovern MD [facility] ENDOSCOPY Family History Family History Problem Relation [...] Blood Gas) No results for input(s): PHART, CRQ5UAT, PO2ART, RFU5OPZ, LACTATEVEN, FER5JCB, PFRATIOART2 in the last 168 hours. VBG (Venous Blood Gas) Recent Labs 07/29/24 1401 PHVEN 7.30* PO2VEN 39 SQD6EHE 20.1* Mixed Venous Sat No results for input(s): D5CTHG5 in the last 168 hours. PA Catheter [...] Blood Gas) No results for input(s): PHART, AUG0JWP, PO2ART, CUQ7OZR, LACTATEVEN, POO7LII, PFRATIOART2 in the last 168 hours. VBG (Venous Blood Gas) Recent Labs 07/29/24 1401 PHVEN 7.30* PO2VEN 39 HWH0XPV 20.1* Mixed Venous Sat No results for input(s): D9ZFPJ6 in the last 168 hours. Microbiology: Microbiology [...] EKG. Patient transferred via air ambulance to [facility] on 07/29 for LHC. Found to have 100% occlusion of LAD for which he underwent LOW to LAD.Otherwise no other significant vessel disease. Fahad is currently hemodynamically tenuous but improving upon admission to [facility], requiring hemodynamic support with norepinephrine and vasopressin at time of admission along with mechanical support with Impella device. Reassuringly, he demonstrates decreasing pressor requirements since admission to [facility], with epinephrine completely weaned. He [...] Bernardo Amos MD Internal Medicine, PGY-3 Cardiology, [facility] 07/29/24 3:14 PM Cardiology Attending [...] FACP, FACC Section of Cardiovascular Medicine Research [facility] Automatic Cigar Wrapper Tendermarine firefighter [facility] [employer] [facility] This patient meets or has met medical [...] to the planned procedure. Hand Hygiene: The regional engagement consultant did perform hand hygiene prior to arterial [...] ease. Good wave form. Ivan Hernandez MD [facility] Associated attestation - Rolando Yeh MD - [...] Fahad was quite active prior to his MO. 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 Given parameters for home exercise. He follows a heart healthy diet and is not overweight. His lipids are wnl. Participation in an outpatient cardiac rehabilitation program at [facility] was discussed. Patient agrees [...] MEDICARE Payor: [employer] MANAGED MEDICARE / [facility] / Product [...] Date of Discharge: 08/04/2024 Gaby Wong RN, Pager-[phone] * Initial Assessments - Char Meza OT - 08/03/2024 10:00 AM EST Occupational Therapy Evaluation Patient profile: Korey Montoya is a 74 y.o. male admitted on 07/29/2024 w/ PMH of hypertension, HLD, and BPH who presents for chief concern of chest pain after being found to have ST elevations onEKG. Patient transferred via air ambulance to [facility] on 07/29 for LHC and LOW to LAD for 100% occlusion. Past Medical History: Diagnosis Date ADHD HLD (hyperlipidemia) HTN (hypertension) Tremor Past Surgical History: Procedure Laterality Date HAND SURGERY PRO COLONOSCOPY, REMV LESN, SNARE N/A 08/30/2023 COLONOSCOPY, POLYPECTOMY, REMOVAL LESION BY SNARE (WRVU 4.57) performed by Brandan Mcgovern MD [facility] ENDOSCOPY Social History: Patient lives with his . Home Setup: 2 NAOMI to a 1 level home. DME: none Baseline ADL/Mobility: Independent with ADLs and IADLs. Enjoys walking. able assist as needed. Precautions/Special Considerations: Full code. Risk for falls. Subjective: I have access to an [employer] gym. (Educated to wait for MD to [...] evaluation only Total Minutes, Occupational Therapy: 14 ([id number] (evaluation)) 2017 OT Evaluation Code Rationale: Diagnosis [...] and measurable assessment of functional outcome. Pager: [phone] Char Meza OT 08/03/2024 Occupational Therapy Rehabilitation [...] (Interventions Implemented as Appropriate) Flowsheets (Taken 08/01/2024 2050) Outcome Summary: A+O, no pain. NSR. MAP [...] Procedure Note: Patient Name: Korey Montoya : [id number] MR#: [id number] Case Date: 07/31/2024 Human Factors Engineer: Surgeons and Role: * Maldonado Luis MD - Primary * Quinten Charles PA - Physician Credit Investigator Preoperative diagnosis: shock, impella Postoperative diagnosis: * same * Procedure(s) performed: Impella removal form right [facility] Access: Right [facility] A time-out was conducted prior to the [...] Admitted From: Transfer from another hospital Location: [facility] Reason for Hospitalization: chest pain Past medical History: Past Medical History: Diagnosis Date ADHD HLD (hyperlipidemia) HTN (hypertension) Tremor Hospitalizations Within the Past 30 Days: no previous admission in last 30 days Current Decision-Making Capacity: Self If AD's have not been completed the following surrogate would be surrogate decision maker per [place] surrogate decision making law. (Only good for 180 days) Any patient receiving care in [place] must abide by [place] law. The hierarchy for surrogate decision making [...] (i) The agent with financial power of real estate associate attorney or a conservator appointed in [...] were you homeless or living in a group home (including now)?: No In the past [...] it) Home Address confirmed as: Mailing Address: [address] [address] Physical Address: [address] [place] [address] Social & Family Supports: All names listed [...] points: Addiction likely Health/Prescription Coverage: Primary Insurance: [facility] MANAGED MEDICARE Payor: [employer] MANAGED MEDICARE / Plan: [facility] MANAGED MEDICARE COMPLETE / Product Type: *No Product type* / Secondary Insurance: N/A ; Prescription Coverage: Yes Preferred Pharmacy: [address] - [address] [address] [place] Status: Patient is a : No Primary Care Provider confirmed: Alexia Mtz, ROCK SINGER [phone] Patient/Caregiver Goals of Treatment: return home Potential [...] (Interventions Implemented as Appropriate) 07/30/2024528 by Chase Csatro RN Outcome: Ongoing (Interventions Implemented as Appropriate) [...] 07/29/2024 6:25 PM EST 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 CXR and EKG completed. Impella [...] Procedure Note: Patient Name: Korey Montoya : [id number] MR#: [id number] Case Date: 07/29/2024 Human Factors Engineer: Surgeons and Role: * Vahe Marvin MD - Primary * Susannah Watts PA - Physician Credit Investigator Preoperative diagnosis: STEMI Postoperative diagnosis: * STEMI, LAD Artery * * Cardiogenic Shock * Procedure(s) performed: [facility] Coronary angiogram Stent insertion coronary IVUS coronary Venous line insert [facility] [place] Colette Catheter Vascular closure device Ventricular assist [...] x 22 mm to 14 deonna JEISON [place]len[place] with LIZ 3 flow. Residual distal disease at distal stent, overlapping distal stent was inserted with 3.0 x 8 mm JEISON [place]lenberg. Systolic's in the 80's sustained. Patient re [...] 10:00 AM EST Office Visit Cardiology at [address] [phone] Mushtaq Murphy, FREDRICK Scheduled Orders Name Type [...] EST Bridgette Stauffer MD HEMATOLOGY ORDERABLE S [facility] [place] [address] * Magnesium (08/04/2024 6:08 AM EST) Magnesium 0.85 0.69 - 1.07 mMol/L 08/04/2024 7:07 AM [facility] Blood VENOUS BLOOD SPECIMEN / Unknown Venipuncture / Unknown 08/04/2024 6:08 AM EST 08/04/2024 6:19 AM EST Bridgette Stauffer MD CHEMISTRY ORDERABLES [facility] [place] [address] * Basic Metabolic Panel (08/04/2024 6:08 AM [...] AM EST Bridgette Stauffer MD CHEMISTRY ORDERABLES [facility] [place] [address] * (ABNORMAL) CBC (with Diff) (08/03/2024 5:16 [...] 0.10 x10(3)/mc L 08/03/2024 5:29 AM EST [facility] Immature Gran % 0.3 % 5:29 AM [facility] Immature Gran Absolute <0.04 0.00 - 0.04 x10(3)/mc L 08/03/2024 5:29 AM [facility] Blood VENOUS BLOOD SPECIMEN / Unknown Venipuncture / Unknown 08/03/2024 5:16 AM EST 08/03/2024 5:23 AM EST Bridgette Stauffer MD HEMATOLOGY ORDERABLE S Performing Organization Address City/[facility]/ZIP Co de Phone Number [facility] [place] [address] * Magnesium (08/03/2024 5:16 AM EST) Pathologist [facility] Magnesium 0.89 0.69 - 1.07 mMol/L 08/03/2024 5:56 AM [facility] Blood VENOUS BLOOD SPECIMEN / Unknown Venipuncture / Unknown 08/03/2024 5:16 AM EST 08/03/2024 5:23 AM EST Bridgette Stauffer MD CHEMISTRY ORDERABLES Performing Organization Address City/[facility] Co de Phone Number [facility] [place] [address] * (ABNORMAL) Basic Metabolic Panel (08/03/2024 5:16 [...] AM EST Bridgette Stauffer MD CHEMISTRY ORDERABLES [facility] [place] [address] * POC, GLUCOSE (08/02/2024 7:47 AM EST) Glucometer, POC 89 65 - 199 mg/dL 08/02/2024 7:47 AM EST [facility] Comment:Supplemental ranges: <140 mg/dL before meals <180 mg/dL all other times of the day. Blood CAPILLARY BLOOD / Unknown 08/02/2024 7:47 AM EST 08/02/2024 7:47 AM EST Krystal Parker MD POINT OF CARE TEST O RDERABLES [facility] [place] [address] * (ABNORMAL) CBC (with Diff) (08/02/2024 4:20 [...] EST Bridgette Stauffer MD HEMATOLOGY ORDERABLE S [facility] [place] [address] * Magnesium (08/02/2024 4:20 AM EST) Magnesium 0.79 0.69 - 1.07 mMol/L 08/02/2024 5:06 AM [facility] Blood VENOUS BLOOD SPECIMEN / Unknown Venipuncture / Unknown 08/02/2024 4:20 AM EST 08/02/2024 4:37 AM EST Bridgette Stauffer MD CHEMISTRY ORDERABLES Performing Organization Address City/[facility]/ZIP Co de Phone Number [facility] [place] [address] * (ABNORMAL) Basic Metabolic Panel (08/02/2024 4:20 [...] - 15 mMol/L 08/02/2024 5:06 AM EST [facility] Calcium 8.1(L) 8.5 - 10.5 mg/dL 08/02/2024 5:06 AM EST [facility] Est Glomerular Filtration Rate - Male 91 mL/min/1. 73 m?? 08/02/2024 5:06 AM EST [facility] Comment: This patient's estimated GFR [...] Stauffer MD CHEMISTRY ORDERABLES Performing Organization Address City/[facility]/ZIP Co de Phone Number [facility] [place] [address] * Potassium (08/01/2024 8:39 PM EST) Potassium 4.0 3.5 - 5.0 mMol/L 08/01/2024 9:21 PM EST [facility] Blood VENOUS BLOOD SPECIMEN / Unknown Venipuncture / Unknown 08/01/2024 8:39 PM EST 08/01/2024 8:51 PM EST Aubree Silverio MD CHEMISTRY ORDERABL ES [facility] [place] [address] * POC, GLUCOSE (08/01/2024 8:35 PM EST) Glucometer, POC 112 65 - 199 mg/dL 08/01/2024 8:36 PM EST [facility] Comment:Supplemental ranges: <140 mg/dL before meals <180 mg/dL all other times of the day. Blood CAPILLARY BLOOD / Unknown 08/01/2024 8:35 PM EST 08/01/2024 8:36 PM EST Krystal Parker MD POINT OF CARE TEST O RDERASHAY [facility] [place] [address] * POC, GLUCOSE (08/01/2024 4:55 PM EST) Glucometer, POC 99 65 - 199 mg/dL 08/01/2024 4:56 PM EST [facility] Comment:Supplemental ranges: <140 mg/dL before meals <180 mg/dL all other times of the day. Blood CAPILLARY BLOOD / Unknown 08/01/2024 4:55 PM EST 08/01/2024 4:56 PM EST Krystal Parker MD POINT OF CARE TEST O JOSH Performing Organization Address [facility]/ZIP Co de Phone Number [facility] [place] [address] * POC, GLUCOSE (08/01/2024 12:42 PM EST) Glucometer, POC 130 65 - 199 mg/dL 08/01/2024 12:43 PM EST [facility] Comment:Supplemental ranges: <140 mg/dL before meals <180 mg/dL all other times of the day. Blood CAPILLARY BLOOD / Unknown 08/01/2024 12:42 PM EST 08/01/2024 12:43 PM EST Krystal Parker MD POINT OF CARE TEST O JOSH Performing Organization Address City/[facility]/ZIP Co de Phone Number [facility] [place] [address] * (ABNORMAL) Cooximetry, POC (08/01/2024 10:45 AM [...] MD POINT OF CARE TEST O RDERABLES [facility] [place] [address] * Potassium (08/01/2024 8:20 AM EST) Potassium 4.0 3.5 - 5.0 mMol/L 08/01/2024 10:17 AM EST [facility] Blood ARTERIAL BLOOD / Unknown Venipuncture / Unknown 08/01/2024 8:20 AM EST 08/01/2024 8:30 AM EST Aubree Silverio MD CHEMISTRY ORDERABL ES [facility] [place] [address] * POC, GLUCOSE (08/01/2024 7:44 AM EST) Pathologist [facility] Glucometer, POC 86 65 - 199 mg/dL 08/01/2024 7:44 AM EST [facility] Comment:Supplemental ranges: <140 mg/dL before meals <180 mg/dL all other times of the day. Blood CAPILLARY BLOOD / Unknown 08/01/2024 7:44 AM EST 08/01/2024 7:44 AM EST Krystal Parker MD POINT OF CARE TEST O RDERABLES [facility] [place] [address] * (ABNORMAL) CBC (with Diff) (08/01/2024 4:18 AM EST) [facility] White Blood Cell 8.51 4.00 - 9.50 x10(3)/mc L 08/01/2024 4:53 AM [facility] Red Blood Cell 4.12(L) [...] MD HEMATOLOGY ORDERABLE S Performing Organization Address [facility] Co de Phone Number [facility] [place] [address] * Magnesium (08/01/2024 4:18 AM EST) Pathologist [facility] Magnesium 0.74 0.69 - 1.07 mMol/L 08/01/2024 5:00 AM [facility] Blood VENOUS BLOOD SPECIMEN / Unknown Venipuncture / Unknown 08/01/2024 4:18 AM EST 08/01/2024 4:29 AM EST Bridgette Stauffer MD CHEMISTRY ORDERABLES Performing Organization Address [facility] Co de Phone Number [facility] [place] [address] * (ABNORMAL) Basic Metabolic Panel (08/01/2024 4:18 AM EST) Pathologist [facility] Glucose 107 65 - 199 mg/dL 08/01/2024 [...] AM EST Bridgette Stauffer MD CHEMISTRY ORDERABLES [facility] [place] [address] * POC, GLUCOSE (07/31/2024 8:41 PM EST) Glucometer, POC 73 65 - 199 mg/dL 07/31/2024 8:41 PM EST [facility] Comment:Supplemental ranges: <140 mg/dL before meals <180 mg/dL all other times of the day. Blood CAPILLARY BLOOD / Unknown 07/31/2024 8:41 PM EST 07/31/2024 8:41 PM EST Krystal Parker MD POINT OF CARE TEST O RDERABLES Performing Organization Address [facility]/State/ZIP Co de Phone Number [facility] [place] [address] * CARDIAC CATHETERIZATION (07/31/2024 5:53 PM EST) Anatomical Region Laterality Modality Other Narrative 08/01/2024 12:37 PM EST ?[facility] ? Cardiac Catheterization/Intervention Report ? Patient Name: Korey Montoya Kyrie. ? Procedure Date: 07/31/2024 ? A #: [id number] ? Primary Physician: Janelle, Maldonado T ? Case #: [id number] ? File Name: [id number] ? Catheterization Order Number: [id number] ? [facility] [facility] ? Final Report [place], [place] ? Patient Name: ? Korey Montoya ?ID#: ?[id number] ? : ?1950 ? Procedure Date: ? [...] ? Comments: ?Impella removed from the right [facility] with deployment of Perclose and ?Angioseal. ??Good [...] Korey Montoya Procedure Date: 07/31/2024 A #: [id number] Primary Physician: Maldonado Luis Case #: [id number] File Name: [id number] Catheterization Order Number: [id number] [facility] FinalReport [place], [place] Patient Name: Korey Montoya ID#:[id number] :1950 Procedure Date: July 31, 2024 Case [...] was designated as ASA Class IV. The [facility] clinical frailtyscale is 4: Vulnerable. Diagnostic [...] procedures. Comments: Impella removed from the right [facility] with deployment of Perclose and Angioseal. Good [...] * POC, GLUCOSE (07/31/2024 11:04 AM EST) [facility] Glucometer, POC 82 65 - 199 mg/dL 07/31/2024 11:04 AM EST [facility] Comment:Supplemental ranges: <140 mg/dL before meals <180 mg/dL all other times of the day. Blood CAPILLARY BLOOD / Unknown 07/31/2024 11:04 AM EST 07/31/2024 11:04 AM EST Krystal Parker MD POINT OF CARE TEST O RDERABLES [facility] [place] [address] * (ABNORMAL) Blood Gas, Arterial POC (07/31/2024 [...] MD POINT OF CARE TEST O JOSH [facility] [place] [address] * POC, GLUCOSE (07/31/2024 7:47 AM EST) Glucometer, POC 82 65 - 199 mg/dL 07/31/2024 7:53 AM [facility] Comment:Supplemental ranges: <140 mg/dL before meals <180 mg/dL all other times of the day. Blood CAPILLARY BLOOD / Unknown 07/31/2024 7:47 AM EST 07/31/2024 7:53 AM EST Krystal Parker MD POINT OF CARE TEST O RDERASHAY [facility] [place] [address] * (ABNORMAL) CBC (with Diff) (07/31/2024 1:08 [...] Immature Gran % 0.2 % 1:28 AM [facility] Immature Gran Absolute <0.04 0.00 - 0.04 x10(3)/mc L 07/31/2024 1:28 AM [facility] Blood VENOUS BLOOD SPECIMEN / Unknown Venipuncture / Unknown 07/31/2024 1:08 AM EST 07/31/2024 1:18 AM EST Bridgette Stauffer MD HEMATOLOGY ORDERABLE S [facility] [place] [address] * Magnesium (07/31/2024 1:08 AM EST) Pathologist [facility] Magnesium 0.89 0.69 - 1.07 mMol/L 07/31/2024 1:46 AM [facility] Blood VENOUS BLOOD SPECIMEN / Unknown Venipuncture / Unknown 07/31/2024 1:08 AM EST 07/31/2024 1:18 AM EST Bridgette Stauffer MD CHEMISTRY ORDERABLES [facility] [address] [place] [address] * (ABNORMAL) Basic Metabolic Panel (07/31/2024 1:08 AM EST) Pathologist [facility] Glucose 97 65 - 199 mg/dL 07/31/2024 1:46 AM [facility] Comment:Glucose Concentratio n >=200 mg/dL plus symptoms is consistent with Diabetes Mellitus. Blood Urea Nitrogen 11 10 - 20 mg/dL 07/31/2024 1:46 AM [facility] Creatinine 0.96 0.80 - 1.50 mg/dL 07/31/2024 1:46 AM EST [facility] Sodium 140 135 - 145 mMol/L 07/31/2024 1:46 AM EST [facility] Potassium 4.1 3.5 - 5.0 mMol/L 07/31/2024 1:46 AM [facility] Chloride 110(H) 98 - 107 mMol/L 07/31/2024 1:46 AM [facility] Carbon Dioxide 24 22 - 31 mMol/L 07/31/2024 1:46 AM [facility] Anion Gap 6 5 - 15 mMol/L 07/31/2024 1:46 AM EST [facility] Calcium 7.7(L) 8.5 - 10.5 [...] AM EST Bridgette Stauffer MD CHEMISTRY ORDERABLES [facility] [place] [address] * (ABNORMAL) Hepatic Function Panel (07/31/2024 1:08 AM EST) Albumin 3.1(L) 3.2 - 5.2 g/dL 07/31/2024 1:46 AM EST [facility] Aspartate Aminotransferase 192(H) <=39 unit/L [...] Parker MD CHEMISTRY ORDERABLES Performing Organization Address [facility]/ZIP Co de Phone Number [facility] [place] [address] * POC, GLUCOSE (07/30/2024 8:03 PM EST) Glucometer, POC 86 65 - 199 mg/dL 07/30/2024 8:03 PM EST [facility] Comment:Supplemental ranges: <140 mg/dL before meals <180 mg/dL all other times of the day. Blood CAPILLARY BLOOD / Unknown 07/30/2024 8:03 PM EST 07/30/2024 8:03 PM EST Krystal Parker MD POINT OF CARE TEST O RDERABLES Performing Organization Address City/[facility]/ZIP Co de Phone Number [facility] [place] [address] * Potassium (07/30/2024 8:03 PM EST) [facility] Potassium 3.8 3.5 - 5.0 mMol/L 07/30/2024 9:13 PM EST [facility] Blood VENOUS BLOOD SPECIMEN / Unknown Venipuncture / Unknown 07/30/2024 8:03 PM EST 07/30/2024 8:22 PM EST Aubree Silverio MD CHEMISTRY ORDERABL ES Performing Organization Address City/[facility]/ZIP Co de Phone Number [facility] [place] [address] * POC, GLUCOSE (07/30/2024 6:23 PM EST) Glucometer, POC 93 65 - 199 mg/dL 07/30/2024 6:24 PM EST [facility] Comment:Supplemental ranges: <140 mg/dL before meals <180 mg/dL all other times of the day. Blood CAPILLARY BLOOD / Unknown 07/30/2024 6:23 PM EST 07/30/2024 6:24 PM EST Krystal Parker MD POINT OF CARE TEST O RDKAY Performing Organization Address [facility] Co de Phone Number [facility] [place] [address] * POC, GLUCOSE (07/30/2024 5:08 PM EST) Glucometer, POC 78 65 - 199 mg/dL 07/30/2024 5:08 PM EST [facility] Comment:Supplemental ranges: <140 mg/dL before meals <180 mg/dL all other times of the day. Blood CAPILLARY BLOOD / Unknown 07/30/2024 5:08 PM EST 07/30/2024 5:08 PM EST Krystal Parker MD POINT OF CARE TEST O JOSH Performing Organization Address [facility] Co de Phone Number [facility] [place] [address] * (ABNORMAL) Phosphorus (07/30/2024 3:08 PM EST) Phosphorus 2.1(L) 2.5 - 4.5 mg/dL 07/30/2024 3:58 PM EST [facility] Blood VENOUS BLOOD SPECIMEN / Unknown Venipuncture / Unknown 07/30/2024 3:08 PM EST 07/30/2024 3:12 PM EST Aubree Silverio MD CHEMISTRY ORDERABL ES Performing Organization Address [facility] Co de Phone Number [facility] [place] [address] * Magnesium (07/30/2024 3:08 PM EST) Magnesium 0.90 0.69 - 1.07 mMol/L 07/30/2024 3:58 PM EST [facility] Blood VENOUS BLOOD SPECIMEN / Unknown Venipuncture / Unknown 07/30/2024 3:08 PM EST 07/30/2024 3:12 PM EST Aubree Silverio MD CHEMISTRY ORDERABL ES [facility] [place] [address] * (ABNORMAL) Basic Metabolic Panel (07/30/2024 3:08 PM EST) Glucose 105 65 - 199 mg/dL 07/30/2024 4:17 PM [facility] Comment:Glucose Concentratio n >=200 mg/dL plus symptoms is consistent with Diabetes Mellitus. Blood Urea Nitrogen 13 10 - 20 mg/dL 07/30/2024 4:17 PM [facility] Creatinine 1.01 0.80 - [...] EST Aubree Silverio MD CHEMISTRY ORDERABL ES [facility] [place] [address] * ECHO LMTD W CONTRAST W LMTD SPEC DOPP COLOR DOPP (07/30/2024 11:42 AM EST) Anatomical Region Laterality Modality Cardiac Other 07/30/2024 10:2 2 AM EST Narrative 07/30/2024 12:34 PM EST [address] [place] [address] ? Echocardiogram Report Name: MONTOYA KOREY Kyrie ? Study Date: 07/30/2024 10:22 AMBP: 124/66 mmHg : 1950 ? Height: 168 cm ? Account: [id number] Age: 74 yrs ? Weight: 65 kg Gender: Male ?BSA: 1.7 m2 Ordering Physician: Aubree Silverio MD Referring Physician: CHAPARRO FERRERA Performed By: OMERO Millan Reason For Study: ST elevation myocardial infarction involving left anterior descending (LAD) coronary artery Interpreting Fellow: Ivan Hernandez. Exam Location: [facility]. Interpretation Summary Left ventricle is severely [...] Compared to the overnight study by the manager of application development fellow the impella position is stable. 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 Procedure Limited - 60352. Image enhancement Definity was used for both [...] Note Kathleen Banda MD - 07/30/2024 [address] [place] [address] Echocardiogram Report Name: KOREY MONTOYA Study Date: 0:22 AMBP: 124/66 mmHg : 1950 Height: 168 cm Account: [id number] Age: 74 yrs Weight: 65 kg Gender: Male BSA: 1.7 m2 Ordering Physician: Aubree Silverio MD Referring Physician: CHAPARRO FERRERA Performed By: OMERO Millan Reason For Study: ST elevation myocardial infarction involving leftanterior descending (LAD) coronary artery Interpreting Fellow: Ivan Hernandez. Exam Location: [facility]. Interpretation Summary Left ventricle is severely [...] Compared to the overnight study by the manager of application development fellow the impella positionis stable. The global left ventricular systolic function has improvedpredominantly via recruitment outside the LAD territory which remains akinetic. Procedure Limited - 93850. Image enhancement Definity was used for both [...] - 199 mg/dL 07/30/2024 11:17 AM EST [facility] Comment:Supplemental ranges: <140 mg/dL before meals <180 mg/dL all other times of the day. Blood CAPILLARY BLOOD / Unknown 07/30/2024 11:17 AM EST 07/30/2024 11:17 AM EST Aubree Silverio MD POINT OF CARE TEST ORDERABLES [facility] [place] [address] * (ABNORMAL) Blood Gas, Arterial POC (07/30/2024 [...] - 145 mmol/L 07/30/2024 8:17 AM EST [facility] Potassium, Arterial 3.9 3.5 - [...] Silverio MD POINT OF CARE TEST ORDERABLES [facility] [place] [address] * (ABNORMAL) Troponin - Single (07/30/2024 8:09 AM EST) Troponin-T, High Sensitivity 8,651(H) <=22 ng/L 07/30/2024 9:06 AM EST [facility] Comment: This patient's troponin T [...] troponin value can be found in the [facility] Laboratory Test Catalog Troponin - https://one-.testcatalog.org/catalogs/565/files/63102 Reference: [address] Definition of Myocardial Infarction. Journal of the [place] [employer] 2018;72:4043-7826 Blood VENOUS BLOOD SPECIMEN / Unknown Venipuncture / Unknown 07/30/2024 8:09 AM EST 07/30/2024 8:26 AM EST Aubree Silverio MD CHEMISTRY ORDERABL ES Performing Organization Address [facility] Co de Phone Number [facility] [place] [address] * POC, GLUCOSE (07/30/2024 7:40 AM EST) Glucometer, POC 111 65 - 199 mg/dL 07/30/2024 7:40 AM EST [facility] Comment:Supplemental ranges: <140 mg/dL before meals <180 mg/dL all other times of the day. Blood CAPILLARY BLOOD / Unknown 07/30/2024 7:40 AM EST 07/30/2024 7:40 AM EST Aubree Silverio MD POINT OF CARE TEST ORDERABLES Performing Organization Address [facility] Hospital/[facility] Co de Phone Number [facility] [place] [address] * (ABNORMAL) CBC (with Diff) (07/30/2024 2:11 AM EST) White Blood Cell 11.25(H) 4.00 - 9.50 x10(3)/mc L 07/30/2024 2:33 AM EST [facility] Red Blood Cell 4.50(L) 4.58 [...] 3.20 x10(3)/mc L 07/30/2024 2:33 AM EST [facility] Monocyte % 5.4 % 07/30/2024 [...] EST Bridgette Stauffer MD HEMATOLOGY ORDERABLE S [facility] [place] [address] * Magnesium (07/30/2024 2:11 AM EST) Magnesium 1.01 0.69 - 1.07 mMol/L 07/30/2024 2:51 AM [facility] Blood VENOUS BLOOD SPECIMEN / Unknown Venipuncture / Unknown 07/30/2024 2:11 AM EST 07/30/2024 2:22 AM EST Bridgette Stauffer MD CHEMISTRY ORDERABLES [facility] [place] [address] * (ABNORMAL) Basic Metabolic Panel (07/30/2024 2:11 [...] Stauffer MD CHEMISTRY ORDERABLES Performing Organization Address City/[facility]/ZIP Co de Phone Number [facility] [place] [address] * (ABNORMAL) Cooximetry, POC (07/30/2024 1:00 AM EST) pO2, Coox 28 mmHg 07/30/2024 1:03 AM [facility] Hemoglobin, Coox 12.7(L) 13.7 - 16.5 g/dL 07/30/2024 1:03 AM EST [facility] Oxyhemoglobin, Coox 54.9 % 07/30/2024 1:03 AM [facility] Carboxyhemoglo bin, Coox 1.0 % 07/30/2024 1:03 AM EST [facility] Comment: Nonsmokers: 0.5-1.5% COHB ?? Smokers: Variable ??but usually less than 10% ?? Toxic: 20-30% COHB ?? Lethal: Greater than 60% COHB Methemoglobin, Coox 0.0 <=1.5 % 07/30/2024 1:03 AM EST [facility] Blood (Mixed Venous) 07/30/2024 1:00 AM EST 07/30/2024 1:03 AM EST Aubree Silverio MD POINT OF CARE TEST ORDERABLES Performing Organization Address [facility] Co de Phone Number [facility] [place] [address] * (ABNORMAL) Blood Gas, Arterial POC (07/30/2024 [...] Rate 2.0 L/min 07/30/2024 12:58 AM EST [facility] IONIZED CALCIUM, ARTERIAL 1.12(L) 1.15 - 1.33 mmol/L 07/30/2024 12:58 AM EST [facility] Glucose, Arterial 184 65 - 199 mg/dL 07/30/2024 12:58 AM EST [facility] Comment:Glucose Concentratio n >=200 mg/dL plus symptoms is consistent with Diabetes Mellitus. Blood ARTERIAL BLOOD / Unknown 07/30/2024 12:57 AM EST 07/30/2024 12:58 AM EST Aubree Silverio MD POINT OF CARE TEST ORDERABLES [facility] [place] [address] * (ABNORMAL) Troponin - Single (07/29/2024 10:31 PM EST) Troponin-T, High Sensitivity >10,000(H ) <=22 ng/L 07/29/2024 11:03 PM EST [facility] Comment: This patient's troponin T [...] troponin value can be found in the [facility] Laboratory Test Catalog Troponin - https://one-.testcatalog.org/catalogs/565/files/12454 Reference: [address] Definition of Myocardial Infarction. Journal of the [place] College [employer]iology 2018;72:3678-6769 Blood VENOUS BLOOD SPECIMEN / Unknown Venipuncture / Unknown 07/29/2024 10:31 PM EST 07/29/2024 10:36 PM EST Yrn Velazquez MD CHEMISTRY ORDERABL ES Performing Organization Address City/[facility]/ZIP Co de Phone Number [facility] [place] [address] * Potassium (07/29/2024 8:11 PM EST) Potassium 4.1 3.5 - 5.0 mMol/L 07/29/2024 8:52 PM EST [facility] Blood VENOUS BLOOD SPECIMEN / Unknown Venipuncture / Unknown 07/29/2024 8:11 PM EST 07/29/2024 8:16 PM EST Aubree Silverio MD CHEMISTRY ORDERABL ES Performing Organization Address [facility]/ZIP Co de Phone Number [facility] [place] [address] * (ABNORMAL) Troponin - Single (07/29/2024 8:11 PM EST) Troponin-T, High Sensitivity >10,000(H ) <=22 ng/L 07/29/2024 8:52 PM EST [facility] Comment: This patient's troponin T [...] troponin value can be found in the [facility] Laboratory Test Catalog Troponin - https://one-.testcatalog.org/catalogs/565/files/08606 Reference: [address] Definition of Myocardial Infarction. Journal of the [place] College of Cardiology 2018;72:4705-0903 Blood VENOUS BLOOD SPECIMEN / Unknown Venipuncture / Unknown 07/29/2024 8:11 PM EST 07/29/2024 8:16 PM EST Aubree Silverio MD CHEMISTRY ORDERABL ES [facility] [place] [address] * (ABNORMAL) Phosphorus (07/29/2024 8:11 PM EST) Phosphorus 2.1(L) 2.5 - 4.5 mg/dL 07/29/2024 8:52 PM EST [facility] Blood VENOUS BLOOD SPECIMEN / Unknown Venipuncture / Unknown 07/29/2024 8:11 PM EST 07/29/2024 8:16 PM EST Aubree Silverio MD CHEMISTRY ORDERABL ES [facility] [place] [address] * POC, GLUCOSE (07/29/2024 8:09 PM EST) Glucometer, POC 142 65 - 199 mg/dL 07/29/2024 8:09 PM EST [facility] Comment:Supplemental ranges: <140 mg/dL before meals <180 mg/dL all other times of the day. Blood CAPILLARY BLOOD / Unknown 07/29/2024 8:09 PM EST 07/29/2024 8:09 PM EST Aubree Silverio MD POINT OF CARE TEST ORDERABLES Performing Organization Address City/[facility]/ZIP Co de Phone Number [facility] [place] [address] * ABORH RECHECK (07/29/2024 6:43 PM EST) Pathologist [facility] ABORH Recheck AB POSITIVE 07/29/2024 10:13 PM EST [facility] Blood VENOUS BLOOD SPECIMEN / Unknown Venipuncture / Unknown 07/29/2024 6:43 PM EST 07/29/2024 7:15 PM EST Aubree Silverio MD BLOOD BANK LAB ORD ERABLES Performing Organization Address City/[facility]/ZIP Co de Phone Number [facility] [place] [address] * POC, GLUCOSE (07/29/2024 5:57 PM EST) [facility] Glucometer, POC 166 65 - 199 mg/dL 07/29/2024 5:57 PM EST [facility] Comment:Supplemental ranges: <140 mg/dL before meals <180 mg/dL all other times of the day. Blood CAPILLARY BLOOD / Unknown 07/29/2024 5:57 PM EST 07/29/2024 5:57 PM EST Aubree Silverio MD POINT OF CARE TEST ORDERABLES Performing Organization Address City/[facility]/ZIP Co de Phone Number [facility] [place] [address] * Type and screen ([facility]/CGP/MAGALIE) (07/29/2024 5:56 PM EST) Pathologist [facility] ABORH Type AB POSITIVE 07/29/2024 9:44 PM EST [facility] PATIENT HISTORY Not Found 07/29/2024 9:44 PM EST [facility] Expires at [id number] on: 08/01/2024 07/29/2024 9:44 PM EST [facility] ANTIBODY SCREEN AUTOMATED Negative 07/29/2024 9:44 PM EST [facility] T&S only valid at [facility] 07/29/2024 9:44 PM EST [facility] Blood VENOUS BLOOD SPECIMEN / Unknown Venipuncture / Unknown 07/29/2024 5:56 PM EST 07/29/2024 6:07 PM EST Narrative [facility] - 07/29/2024 9:44 PM EST This Type and Screen result is only valid at the [facility] Aubree Silverio MD BLOOD BANK LAB ORD ERABLES [facility] [place] [place] [address] * (ABNORMAL) Troponin - Single (07/29/2024 4:52 PM EST) [facility] Troponin-T, High Sensitivity >10,000(H ) <=22 ng/L 07/29/2024 5:25 PM EST [facility] Comment: This patient's troponin T [...] troponin value can be found in the [facility] Laboratory Test Catalog Troponin - https://[facility]-.testcatalog.org/catalogs/565/files/83704 Reference: [address] Definition of Myocardial Infarction. Journal of the [place] College of Cardiology 2018;72:3906-9285 Blood VENOUS BLOOD SPECIMEN / Unknown Venipuncture / Unknown 07/29/2024 4:52 PM EST 07/29/2024 4:57 PM EST Aubree Silverio MD CHEMISTRY ORDERABL ES Performing Organization Address City/[facility]/ZIP Co de Phone Number [facility] [place] [address] * EKG 12 Lead (07/29/2024 4:21 PM EST) Ventricular rate 72 BPM MUSE SYSTEM Atrial Rate 72 BPM MUSE SYSTEM P-R Interval 168 ms MUSE SYSTEM QRS Duration 82 ms MUSE SYSTEM Q-T Interval 392 ms MUSE SYSTEM QTC Calculated (Bezet) 429 ms MUSE SYSTEM Calculated P [place] 71 degrees MUSE SYSTEM Calculated R [place] 77 degrees MUSE SYSTEM Calculated T [place] 28 degrees MUSE SYSTEM INTERPRETATION Sinus rhythm with Premature supraventricular complexes and Occasional Premature ventricular complexes Low voltage QRS 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) Lateral injury pattern ACUTE MO / STEMI Abnormal ECG When compared with ECG of 29-JUL-2024 13:43, (unconfirmed) Serial changes of evolving Anteroseptal infarct Present Confirmed by MD Marcus, Roverto (1963) on 07/31/2024 5:30:06 AM MUSE SYSTEM 07/29/2024 4:21 PM EST 07/31/2024 5:30 AM EST Aubree Silverio MD ECG ORDERABLES Performing Organization Address [facility]/ZIP Co de Phone Number MUSE SYSTEM * (ABNORMAL) Blood Gas, Arterial POC (07/29/2024 4:21 PM EST) pH, Arterial 7.37 7.35 - 7.45 07/29/2024 4:22 PM EST [facility] PCO2, Arterial 36 35 - 45 mmHg 07/29/2024 4:22 PM EST [facility] PO2, Arterial 71(L) 85 - 104 mmHg 07/29/2024 4:22 PM EST [facility] Bicarbonate, Arterial 20.4 20.0 - 26.0 mmol/L 07/29/2024 4:22 PM EST [facility] Base Excess, Arterial -4.8(L) -3.0 [...] Silverio MD POINT OF CARE TEST ORDERABLES [facility] [place] [address] * POC, GLUCOSE (07/29/2024 4:19 PM EST) Glucometer, POC 185 65 - 199 mg/dL 07/29/2024 4:19 PM EST [facility] Comment:Supplemental ranges: <140 mg/dL before meals <180 mg/dL all other times of the day. Blood CAPILLARY BLOOD / Unknown 07/29/2024 4:19 PM EST 07/29/2024 4:19 PM EST Aubree Silverio MD POINT OF CARE TEST ORDERABLES Performing Organization Address City/[facility]/ZIP Co de Phone Number [facility] [place] [address] * Blood culture (07/29/2024 4:08 PM EST) Blood Culture No growth at 120 hours 08/03/2024 5:01 PM EST [facility] Blood VENOUS BLOOD SPECIMEN / Unknown Venipuncture / Unknown 07/29/2024 4:08 PM EST 07/29/2024 4:15 PM EST Aubree Silverio MD MICROBIOLOGY - BLO OD ORDERABLES Performing Organization Address City/[facility]/ZIP Co de Phone Number [facility] [place] [address] * Blood culture (07/29/2024 4:08 PM EST) Blood Culture No growth at 120 hours 08/03/2024 5:01 PM EST [facility] Blood VENOUS BLOOD SPECIMEN / Unknown Venipuncture / Unknown 07/29/2024 4:08 PM EST 07/29/2024 4:26 PM EST Aubree Silverio MD MICROBIOLOGY - BLO OD ORDERABLES [facility] [place] [address] * XR Chest One View (07/29/2024 2:30 PM EST) WORKSTATION ID [id number] RAD Anatomical Region Laterality Modality Chest N/A [...] have questions please contact the health home health caregiver that requested your imaging first. ? Electronically signed by: Chris Candelaria MD, [facility] ([phone]), at 07/29/2024 3:21 PM Narrative 07/29/2024 3:21 [...] who have questions please contactthe health home health caregiver that requested your imaging first. Electronically signed by: Chris Candelaria MD, [facility]([phone]), at 07/29/2024 3:21 PM Vahe Marvin MD IMG DX ORDERABLES * (ABNORMAL) APTT (07/29/2024 2:03 PM EST) Pathologist [facility] Partial Thromboplastin Time >160(HHH) 25 - 37 sec 07/29/2024 2:56 PM EST [facility] Blood VENOUS BLOOD SPECIMEN / Unknown Venipuncture / Unknown 07/29/2024 2:03 PM EST 07/29/2024 2:13 PM EST Vahe Marvin MD HEMATOLOGY ORDERABLE S [facility] [place] [address] * (ABNORMAL) Prothrombin Time (07/29/2024 2:03 PM EST) Prothrombin Time 14.2(H) 9.4 - 12.5 sec 07/29/2024 2:56 PM EST [facility] International Normalization Ratio 1.3 <=4.9 07/29/2024 2:56 PM EST [facility] Comment: An INR < 2.0 [...] MD HEMATOLOGY ORDERABLE S Performing Organization Address City/[facility]/ZIP Co de Phone Number [facility] [place] [address] * CRP, acute inflammation (07/29/2024 2:03 PM EST) C-Reactive Protein <3.0 <=4.9 mg/L 07/29/2024 2:52 PM EST [facility] Blood VENOUS BLOOD SPECIMEN / Unknown Venipuncture / Unknown 07/29/2024 2:03 PM EST 07/29/2024 2:14 PM EST Vahe Marvin MD CHEMISTRY ORDERABLES Performing Organization Address City/[facility]/ZIP Co de Phone Number [facility] [place] [address] * Lipid Panel (Reflex Direct LDL) (07/29/2024 2:03 PM EST) Cholesterol, Total 133 mg/dL 07/29/2024 2:52 PM EST [facility] Comment: Desirable: < 200 mg/dL Borderline High: 200 - 239 mg/dL High: > or = 240 mg/dL Triglyceride 45 mg/dL 07/29/2024 2:52 PM EST [facility] Comment: Normal: <150 mg/dL Borderline High: 150-199 mg/dL High: 200-499 mg/dL Very High: > or =500 mg/dL HDL Cholesterol 58 mg/dL 2:52 PM [facility] Comment:Males: High Risk: <4 0 mg/dL LDL Cholesterol 64 mg/dL 2:52 PM [facility] [...] Marvin MD CHEMISTRY ORDERABLES Performing Organization Address City/[facility]/ZIP Co de Phone Number [facility] [place] [address] * TSH [place] (07/29/2024 2:03 PM EST) [facility] Thyroid Stimulating Hormone 0.70 0.27 - 4.20 mcIU/mL 07/29/2024 2:52 PM EST [facility] Blood VENOUS BLOOD SPECIMEN / Unknown Venipuncture / Unknown 07/29/2024 2:03 PM EST 07/29/2024 2:14 PM EST Vahe Marvin MD CHEMISTRY ORDERABLES Performing Organization Address [facility]/ZIP Co de Phone Number [facility] [place] [address] * Hemoglobin A1c (07/29/2024 2:03 PM EST) [facility] Hemoglobin A1c 5.3 4.3 - 5.6 % 07/29/2024 2:41 PM EST [facility] Comment: Per ADA guidelines, without [...] red blood cell turnover may not be ambulatory services representative of glycemic control. Reference Interval: 4.3 - 5.6% 5.7 - 6.4%: Consistent with prediabetes >=6.5%: Consistent with diagnosis of diabetes mellitus Estimated Average Glucose 07/29/2024 2:41 PM EST [facility] Comment:Estimated Average Gl ucose not [...] into estimated average glucose values. ??Diabetes Care 2008:31(8):0748-6715. Additional resources are available on the ADA website (diabetes.org). Vahe Marvin MD CHEMISTRY ORDERABLES [facility] [place] [address] * (ABNORMAL) CBC (with Diff) (07/29/2024 2:03 PM EST) White Blood Cell 19.50(H) 4.00 - 9.50 x10(3)/mc L 07/29/2024 2:18 PM EST [facility] Red Blood Cell 4.81 4.58 [...] 3.20 x10(3)/mc L 07/29/2024 2:18 PM EST [facility] Monocyte % 2.9 % 07/29/2024 2:18 PM EST [facility] Monocyte Absolute 0.56 0.30 - 0.90 x10(3)/mc L 07/29/2024 2:18 PM EST [facility] Eos % 0.0 % 07/29/2024 2:18 PM EST [facility] Eos Absolute <0.04 0.00 - 0.40 x10(3)/mc L 07/29/2024 2:18 PM EST [facility] Basophil % 0.3 % 07/29/2024 2:18 PM [facility] Baso Absolute 0.05 0.00 - 0.10 x10(3)/mc L 07/29/2024 2:18 PM EST [facility] Immature Gran % 0.5 % 2:18 PM [facility] Immature Gran Absolute 0.09(H) 0.00 - 0.04 x10(3)/mc L 07/29/2024 2:18 PM EST [facility] Blood VENOUS BLOOD SPECIMEN / Unknown Venipuncture / Unknown 07/29/2024 2:03 PM EST 07/29/2024 2:13 PM EST Vahe Marvin MD HEMATOLOGY ORDERABLE S Performing Organization Address City/State/[facility] Co de Phone Number [facility] [place] [address] * Phosphorus (07/29/2024 2:03 PM EST) Phosphorus 2.5 2.5 - 4.5 mg/dL 07/29/2024 2:52 PM EST [facility] Blood VENOUS BLOOD SPECIMEN / Unknown Venipuncture / Unknown 07/29/2024 2:03 PM EST 07/29/2024 2:14 PM EST Vahe Marvin MD CHEMISTRY ORDERABLES [facility] [place] [address] * Magnesium (07/29/2024 2:03 PM EST) Pathologist [facility] Magnesium 0.70 0.69 - 1.07 mMol/L 07/29/2024 2:52 PM EST [facility] Blood VENOUS BLOOD SPECIMEN / Unknown Venipuncture / Unknown 07/29/2024 2:03 PM EST 07/29/2024 2:14 PM EST Vahe Marvin MD CHEMISTRY ORDERABLES Performing Organization Address City/[facility]/ZIP Co de Phone Number [facility] [place] [address] * (ABNORMAL) Comprehensive metabolic panel (07/29/2024 2:03 PM EST) Pathologist [facility] Glucose 243(H) 65 - 199 mg/dL 07/29/2024 [...] - 10.5 mg/dL 07/29/2024 3:11 PM EST [facility] Protein, Total 6.0(L) 6.1 - [...] PM EST Vahe Marvin MD CHEMISTRY ORDERABLES [facility] [place] [address] * (ABNORMAL) Troponin - Single (07/29/2024 2:03 PM EST) [facility] Troponin-T, High Sensitivity >10,000(H ) <=22 ng/L 07/29/2024 2:52 PM EST [facility] Comment: This patient's troponin T [...] troponin value can be found in the [facility] Laboratory Test Catalog Troponin - https://[facility]-.testcatalog.org/catalogs/565/files/91242 Reference: [address] Definition of Myocardial Infarction. Journal of the [place] College of [employer]iology 2018;72:6141-7944 Blood VENOUS BLOOD SPECIMEN / Unknown Venipuncture / Unknown 07/29/2024 2:03 PM EST 07/29/2024 2:14 PM EST Vahe Marvin MD CHEMISTRY ORDERABLES [facility] [place] [address] * (ABNORMAL) Blood Gas, Venous POC (07/29/2024 2:01 PM EST) [facility] pH, Venous 7.30(L) 7.32 - 7.42 07/29/2024 2:02 PM EST [facility] PCO2, Venous 42 38 - 58 mmHg 07/29/2024 2:02 PM EST [facility] PO2, Venous 39 16 - [...] 98 - 107 mmol/L 07/29/2024 2:02 PM [facility] Glucose, Venous 229(H) 65 - 199 mg/dL 07/29/2024 2:02 PM [facility] Comment:Glucose Concentratio n >=200 mg/dL plus symptoms is consistent with Diabetes Mellitus. Lactate, Venous 3.1(H) 0.5 - 2.2 mmol/L 07/29/2024 2:02 PM [facility] Ionized Calcium, Venous 1.11(L) 1.15 - 1.33 mmol/L 07/29/2024 2:02 PM [facility] Blood VENOUS BLOOD SPECIMEN / Unknown 07/29/2024 2:01 PM EST 07/29/2024 2:02 PM EST Vahe Marvin MD POINT OF CARE TEST O RDERABLES Performing Organization Address [facility]/State/ZIP Co de Phone Number [facility] [address] * CARDIAC CATHETERIZATION (07/29/2024 1:20 PM EST) Anatomical Region Laterality Modality Other Narrative 07/29/2024 2:02 PM EST ?[facility] ? Cardiac Catheterization/Intervention Report ? Patient Name: Korey Montoya Kyrie. ? Procedure Date: 07/29/2024 ? A #: [id number] ? Primary Physician: Vahe Marvin ? Case #: [id number] ? File Name: [id number] ? Catheterization Order Number: [id number] ? [facility] ? Final Report [place], [place] ? Patient Name: ? Korey Montoya ?ID#: ?[id number] ? : ?1950 ? Procedure Date: ? [...] procedure was Emergent. The indication for ?the wood and wood products labourer visit is ACS less than or equal [...] 3.5 guiding catheter and a 3.5 Fr [place] [facility] [place] [address] ??20 Mhz using ?Manual pullback. ??Imaging [...] ? A premounted 3.00 x 22 mm [place] (LOW) was deployed ? with a maximum [...] atmospheres. ??A premounted 3.00 x 08 mm [place] (LOW) ? was deployed with a maximum [...] dose administered prior to arrival in the wood and wood products labourer. ?Recommended anti-platelet/anti-thrombotic regimen: ?Start aspirin 81 mg daily now and continue for 12 months then stop. ?Start clopidogrel 75 mg daily now and continue for indefinitely. ?These recommendations are made at the time of the intervention. Patient ?and provider preferences or a changing clinical situation may require ?modification of this regimen. Consult [facility] Interventional Cardiology for ?questions. ?The 1 year [...] able ?to start weaning his inotropes/vasopressors. A [place] Colette catheter was ?placed demonstrating improvement in [...] ventricular assist device insertion, right heart ?catheterization, [place] (flow directed cath) insertion, access site ?angiography, [...] Korey Montoya Procedure Date: 07/29/2024 A #: [id number] Primary Physician: Vahe Marvin Case #: [id number] File Name: [id number] Catheterization Order Number: [id number] [facility] FinalReport [place], [place] Patient Name: Korey Montoya ID#:[id number] :1950 Procedure Date: July 29, 2024 Case [...] was designated as ASA Class IV. [facility]: Vulnerable. Diagnostic Tests: Electrocardiography: EKG was assessed by ECG. EKG was Abnormal. EKG showed STDeviation >= 0.5 mm. Medications Prior to Procedure: Angiotensin II Receptor Elvis and Statin. Indications for Diagnostic Cath: The priority of the diagnostic procedure was Emergent. Theindication for the wood and wood products labourer visit is ACS less than or equal [...] 3.5 guiding catheter and a 3.5 Fr [facility] [place] [facility] [place] [address] 20 Mhzusing Manual pullback. Imaging was [...] The lesion was predilated with a 2.00mm [id number] MM balloon with a maximum inflation pressure of 12atmospheres. A premounted 3.00 x 22 mm [place] (LOW) wasdeployed with a maximum inflation pressure [...] atmospheres. A premounted 3.00 x 08 mm [place](LOW) was deployed with a maximum inflation pressure [...] dose administered prior to arrival in the wood and wood products labourer. Recommended anti-platelet/anti-thrombotic regimen: Start aspirin 81 mg daily now and continue for 12 months then stop. Start clopidogrel 75 mg daily now and continue for indefinitely. These recommendations are made at the time of the intervention.Patient and provider preferences or a changing clinical situation mayrequire modification of this regimen. Consult [facility] Interventional Cardiologyfor questions. The 1 year bleeding [...] wereable to start weaning his inotropes/vasopressors. A [place] Colette catheterwas placed demonstrating improvement in his [...] ventricular assist device insertion, right heart catheterization, [place] (flow directed cath) insertion, access site angiography, [...] MD POINT OF CARE TEST O RDERABLES [facility] [place] [address] * (ABNORMAL) BLOOD GAS, POC (07/29/2024 12:12 [...] [facility] Co de Phone Number [facility] [place] [address] documented in this encounter Visit Diagnoses Not [...] Routine documented in this encounter Care Teams Button Inspector Relationship Specialty Start Date End Date Yoel Artis APRN [address] [place] [address] PCP - General Internal Medicine 11/18/22 07/29/24 documented as of this encounter
--- OUTSIDE RECORDS SUMMARY | 2024-09-03 11:01 | XMS_ITS | Encounter Summary ---
Author Organization [facility] Address [facility] [place] [address] Care Team Providers Care Cdl Truck Driver Name Role Phone Carola Artis APRN Primary Care Provider [phone] Encounter Details Date Type Department Care Team (Latest Contact Info) Description 11/30/2023 8:00 AM EDT TH Visit (TeleHealth) [place] [address] Carola Dangelo APRN [facility] [place] [address] Proctalgia fugax; Constipation, unspecified constipation type Social [...] Handout for Patients and Primary Care Providers [employer] Gastrointestinal Motility, Esophageal, and Swallowing Disorders Center What are functional bowel disorders? These are the most common type of gastrointestinal disorders in the [facility] The most common functional bowel [...] what is the impact? 15-20% of general [place] population has IBS or FD or both 2nd most common cause for lost work days (after common cold) in [place] Estimated $30 billion dollar cost to [place] economy per year These disorders can have [...] with immediate onset of symptoms after infection); petroleum terminal plant operator symptoms are expected in most patients however [...] to you primary care provider and/or local air hose coupler and share this document. Treatment of functional [...] - this approach benefits most patients OTC (iwmi-ebt-dhnibbi) medications can be used for ongoing bothersome symptoms as listed below Your provider (PCP or local Gastroenterology provider or [facility] Gastroenterology provider) may decide to use prescription [...] All-Bran psyllium buds, Metamucil, Konsyl, bulk psyllium ([employer] and [employer] stores) Specifically we recommend starting Metamucil or [...] but convincing medical evidence is still lacking Tbcr-auq-tkbsxcx supplements including probiotics are not typically evaluated [...] to decrease antibiotic-associated diarrhea and antibiotic-related infections Gbhk-sve-Fgeybkq Medications for Functional Gut Disorders Based on [...] a stool softener that is safe for prison usage (no risk of dependency) andthe dosage [...] (GERD) Often a combination of anti-nausea medications (sdva-ely-setmmiu or prescription) works better thanhigh doses of [...] for misuse/misinterpretation of this information Patient Resources [place] [employer] https://www.gastro.org/practice-guidance/ny-xkaahwv-rzzjuv/ topic/hzkjwftbd-wqyme-bhggbnyq-ibs Badgut.org https://badgut.org/information-centre/r-n-ftrjcesxd-topics/ibs/ AboutIBS.org https://www.aboutibs.org/ Uptodate.com https://www.uptodate.com/contents/zgmchfxch-crcwg-wfzwpsnu-abeuun-gtp-ipocqv documented in this encounter Progress Notes * [...] Take by mouth. nitroGLYcerin (NITROLINGUAL) 400 mcg/spray [place], Non-Aerosol 1 spray to anus for proctalgia fugax as needed, not to exceed once daily 12 g 0 No facility-administered medications prior to visit. Allergies: has No Known Allergies. Past Medical History: has a past medical history of ADHD, HLD (hyperlipidemia), HTN (hypertension),and Tremor. Past Surgical History: has a past surgical history that includes Hand surgery and Colonoscopy, Antonieta Pfeiffer ([id number]) (N/A, 08/30/2023). Family History: family history is [...] for re-evaluation. The patient was located in [place] at the time of their visit. Carola Dangelo APRN [facility] [place] [address] documented in this encounter Miscellaneous Notes * Addendum Note - Carola Dangelo APRN - 11/30/2023 8:00 AM EDTAddended by: CAROLA DANGELO on: 11/30/2023 08:46 AM Modules accepted: Level of Service documented in this encounter Plan of Treatment Upcoming Encounters Date Type Department Care Team (Late st Contact Info) Description 10/01/2024 10:00 AM EST Office Visit Cardiology at [address] [address] Mushtaq Murphy APRN documented as of this encounter Visit Diagnoses Diagnosis Proctalgia fugax Anal spasm Constipation, unspecified constipation type documented in this encounter Care Teams Cdl Truck Driver Relationship Specialty Start Date End Date Carola Artis APRN [address] [place] [address] PCP - General Internal Medicine 11/18/22 07/29/24 documented as of this encounter
--- OUTSIDE RECORDS SUMMARY | 2024-09-03 11:01 | XMS_ITS | Encounter Summary ---
Author Organization [facility] [place] [address] Care Team Providers Care Manager Med Surg Name Role Phone Alexia Mtz UNINDENTURED APPRENTICE Primary Care Provider Encounter Details Date Type Department Care Team (Late st Contact Info) Description 06/25/2024 Lab [place] [address] Aubrey Cali MD [address] [place] [id number] Pyuria Social History Tobacco Use Types Packs/Day [...] AM EST Office Visit Cardiology at [address] [phone] Mushtaq Murphy APRN documented as of this encounter Procedures Procedure Name Priority Date/Time Associated Diagnosis Comments URINE CULTURE Routine 06/25/2024 11:55 AM EDT Pyuria documented in this encounter Results * Urine culture (06/25/2024 11:55 AM EDT) Urine Culture No growth 06/26/2024 12:22 PM EDT [facility] Urine URINE SPECIMEN OBTAINED BY CLEAN CATCH PROCEDURE / Unknown 06/25/2024 11:55 AM EDT 06/25/2024 5:18 PM EDT Aubrey Cali MD MICROBIOLOGY - GENER AL ORDERABLES [facility] [place] [address] documented in this encounter Visit Diagnoses Diagnosis Pyuria Other nonspecific finding on examination of urine documented in this encounter Care Teams Manager Med Surg Relationship Specialty Start Date End Date Alexia Mtz, UNINDENTURED APPRENTICE [address] [place] [address] PCP - General Family Medicine 07/30/24 documented as of this encounter
--- OUTSIDE RECORDS SUMMARY | 2024-09-03 11:01 | XMS_ITS | Encounter Summary ---
Author Organization [facility] Address [facility] [place] [address] Care Team Providers Care Attendant Honor Bar Name Role Phone Yoel Artis FREDRICK Primary Care Provider [phone] Encounter Details Date Type Department Care Team (Late st Contact Info) Description 07/29/2024 Notes [place] [phone] Ivan Hernandez MD [facility] [place] [address] Social History Tobacco Use Types Packs/Day Years Used Date Smoking Tobacco: Former Cigarettes Smokeless Tobacco: Never Alcohol Use Standard Drinks/Week Comments Not Currently 0 (1 standard drink = 0.6 oz pur e alcohol) [facility] Utilities Answer Date Recorded In the past 12 months has e [employer], gas, oil, or water GITR threatened to shut off services in your [...] any time in the past 12 m [facility], were you homeless or living [...] 9:50 AM Hospital to which patient presented: [facility] If Hospital to which patient presented= [facility]: ED Walk In Medical History (prior to [...] Unfractionated Heparin Plan STEMI Alert called: Yes Associate Sales Representative Activated by: Map Maker Initial Disposition: Admit Associate Sales Representative documented in this encounter Plan of Treatment Upcoming Encounters Date Type Department Care Team (Late st Contact Info) Description 10/01/2024 10:00 AM EST Office Visit Cardiology at [address] [address] Mushtaq Murphy APRN documented as of this encounter Visit Diagnoses Not on filedocumented in this encounter Care Teams Attendant Honor Bar Relationship Specialty Start Date End Date Yoel Artis APRN [address] [place] [address] PCP - General Internal Medicine 11/18/22 07/29/24 documented as of this encounter
--- OUTSIDE RECORDS SUMMARY | 2024-09-03 11:02 | XMS_ITS | Encounter Summary ---
Author Organization [facility] [place] [address] Care Team Providers Care Lead Enterprise Architect Name Role Phone Yoel Artis APRN Primary Care Provider Reason for Referral * Consultation (Routine) - Closed Specialty Diagnoses / Procedures Referred By Theodore muro Referred To Contact Gastroenterology Diagnoses Anal spasm motility- anal spasms Yoel Artis APRN [address] [place] [address] [facility] Gastro [address] [place] [phone] Referral ID Status Reason Start Date Expiration Date V isits Requested Visits Authorized [id number] Closed Consult, Test & Treat PCP Updated and/or Approved 11/18/2022 11/18/2023 6 6 Encounter Details Date Type Department Care Team (Late st Contact Info) Description 11/18/2022 Transcribe Orders eDH Incoming Referrals [phone] Yoel Artis APRN [address] [place] [address] Anal spasm Social History Tobacco [...] 10:00 AM EST Office Visit Cardiology at [address] [address] Mushtaq Murphy APRN Scheduled Referrals Name Type Priority Associated Diagnoses Order Schedule Referral to Gastroenterology Outpatient Referral Routine Anal spasm Ordered: 11/18/2022 documented as of this encounter Visit Diagnoses Diagnosis Anal spasm documented in this encounter Care Teams Lead Enterprise Architect Relationship Specialty Start Date End Date Yoel Artis APRN [address] [place] [address] PCP - General Internal Medicine 11/18/22 07/29/24 documented as of this encounter
--- OUTSIDE RECORDS SUMMARY | 2024-09-03 11:02 | XMS_ITS | Encounter Summary ---
Author Organization [facility] Address [facility] [place] [address] Care Team Providers Care Intrusion Analyst Name Role Phone Unknown Primary Care Provider Unavailabl e Encounter Details Date Type Department Care Team (Late st Contact Info) Description 01/13/2019 9:05 PM EDT Ancillary Procedure Radiology Library at [facility] [place] [phone] Sunny Aviles MD [facility] [place] [address] Social History Tobacco Use Types Packs/Day Years [...] AM EST Office Visit Cardiology at [address] [place] [phone] Mushtaq Murphy, GLUER MACHINE OPERATOR documented as of this encounter Procedures Procedure [...] Aviles MD IMG FILM LIBRARY ORDERABLES [place] documented in this encounter Visit Diagnoses Not on filedocumented in this encounter Care Teams Intrusion Analyst Relationship Specialty Start Date End Date Unknown None PCP - General 08/04/10 01/16/19 documented as of this encounter
--- OUTSIDE RECORDS SUMMARY | 2024-09-03 11:02 | XMS_ITS | Encounter Summary ---
Author Organization [facility] [place] [address] Care Team Providers Care Trauma Registrar Name Role Phone Yoel Artis APRN Primary Care Provider Encounter Details Date Type Department Care Team (Late st Contact Info) Description 12/23/2022 8:20 AM EDT - 12/23/2022 11:59 PM EDT Hospital Encounter [facility] Lab [address] [place] [address] Yoel Artis APRN [address] [place] [address] Discharge Disposition: Home Social History Tobacco Use [...] AM EST Office Visit Cardiology at [address] [address] Mushtaq Murphy APRN documented as of this encounter Procedures Procedure Name Priority Date/Time Associated Diagnosis Comments PSA SCREEN Routine 12/23/2022 8:43 AM EDT documented in this encounter Results * (ABNORMAL) PSA Screen (12/23/2022 8:43 AM EDT) PSA Screen 4.37(H) 0.00 - 4.00 ng/mL [facility] Comment: PLEASE NOTE: The above [...] Artis APRN CHEMISTRY ORDERABLES Performing Organization Address City/State/[facility] Co de Phone Number [facility] [place] [address] documented in this encounter Visit Diagnoses Not on filedocumented in this encounter Care Teams Trauma Registrar Relationship Specialty Start Date End Date Yoel Artis APRN [address] [place] [address] PCP - General Internal Medicine 11/18/22 07/29/24 documented as of this encounter
--- OUTSIDE RECORDS SUMMARY | 2024-09-03 11:02 | XMS_ITS | Encounter Summary ---
Author Organization [facility] [place] [address] Care Team Providers Care Circus Roustabout Name Role Phone Yoel Artis APRN Primary Care Provider [phone] Reason for Referral * Consultation (Routine) - Closed Specialty Diagnoses / Procedures Referred By Theodore muro Referred To Contact Gastroenterology Diagnoses Anal spasm anal spasm Yoel Artis APRN [address] [place] [address] [facility] Gastro [address] [place] [address] Referral ID Status Reason Start Date Expiration Date V isits Requested Visits Authorized [id number] Closed Consult, Test & Treat PCP Updated and/or Approved 05/26/2023 05/25/2024 6 6 Encounter Details Date Type Department Care Team (Late st Contact Info) Description 05/26/2023 Transcribe Orders eDH Incoming Referrals [phone] Yoel Artis APRN [address] [place] [address] Anal spasm Social History Tobacco [...] 10:00 AM EST Office Visit Cardiology at [address] [address] Mushtaq Murphy APRN Scheduled Referrals Name Type Priority Associated Diagnoses Order Schedule Referral to Gastroenterology Outpatient Referral Routine Anal spasm Ordered: 05/26/2023 documented as of this encounter Visit Diagnoses Diagnosis Anal spasm documented in this encounter Care Teams Circus Roustabout Relationship Specialty Start Date End Date Yoel Artis APRN [address] [place] [address] PCP - General Internal Medicine 11/18/22 07/29/24 documented as of this encounter
--- OUTSIDE RECORDS SUMMARY | 2024-09-03 11:02 | XMS_ITS | Encounter Summary ---
Author Organization [facility] [place] [address] Care Team Providers Care Decal Cutter Name Role Phone Yoel Artis APRN Primary Care Provider Reason for Referral * Consultation (Routine) - Closed Specialty Diagnoses / Procedures Referred By Theodore muro Referred To Contact Gastroenterology Diagnoses Proctalgia fugax Fecal smearing Constipation, unspecified constipation type group Yoel Dangelo APRN [facility] [place] [address] Paulette Gylnn, PhD [facility] [place] [address] Referral ID Status Reason Start Date Expiration Date V isits Requested Visits Authorized [id number] Closed Consult, Test & Treat 06/01/2023 05/31/2024 1 1 Reason for Visit * Consultation (Routine) - Closed Specialty Diagnoses / Procedures Referred By Theodore muro Referred To Contact Gastroenterology Diagnoses Anal spasm motility- anal spasms Yoel Artis APRN [address] [place] [address] [facility] Gastro [address] [place] [address] Referral ID Status Reason Start Date Expiration Date V isits Requested Visits Authorized [id number] Closed Consult, Test & Treat PCP Updated and/or Approved 11/18/2022 11/18/2023 6 6 Encounter Details Date Type Department Care Team (Latest Contact Info) Description 06/01/2023 8:00 AM EDT TH Visit (TeleHealth) [place] [address] Yoel Dangelo, HOTEL REGISTRATION CLERK [facility] [place] [address] Proctalgia fugax; Fecal smearing; Constipation, unspecified constipation [...] this encounter Patient Instructions * Patient Instructions* Yeol Dangelo, FREDRICK - 06/01/2023 8:00 AM EDT Dear Korey, It was nice to meet you today. I have listed the recommendations we discussed below. Please call the GI department to schedule the investigations if you do not hear from us within 1 week: Clinic [phone] Motility Lab scheduling [phone] Endoscopy scheduling- [phone] Diagnostics: -Colonoscopy for rectal pain -Anorectal manometry [...] connection and our services, please visit the [facility] GI Behavioral health website at: [email or web address] Our hope is that through these classes, [...] please contact your insurance company or the [facility] billing office ([email or web address]). Your insurance company may request a CPT code if you ask about [place]. [place] [address]. If you're interested in attending any of these classes or workshops, please reach out to our scheduling team via [facility] or phone ([phone]). You should start a fiber supplement if [...] Handout for Patients and Primary Care Providers [facility] Gastrointestinal Motility, Esophageal, and Swallowing Disorders Center What are functional bowel disorders? These are the most common type of gastrointestinal disorders in the [facility] The most common functional bowel disorder in the [facility] is irritable bowel syndrome (IBS) Irritable [...] what is the impact? 15-20% of general [place] population has IBS or FD or both 2nd most common cause for lost work days (after common cold) in [place] Estimated $30 billion dollar cost to [place] economy per year These disorders can have [...] to you primary care provider and/or local ripsaw matcher and share this document. Treatment of functional [...] - this approach benefits most patients OTC (pwqp-msw-xoadbbv) medications can be used for ongoing bothersome symptoms as listed below Your provider (PCP or local Gastroenterology provider or [facility] Gastroenterology provider) may decide to use [...] All-Bran psyllium buds, Metamucil, Konsyl, bulk psyllium ([employer] stores and [employer] stores) Specifically we recommend starting Metamucil or [...] but convincing medical evidence is still lacking Bzwi-oto-fikmsdh supplements including probiotics are not typically evaluated [...] to decrease antibiotic-associated diarrhea and antibiotic-related infections Ntwb-wef-Uxuqsmh Medications for Functional Gut Disorders Based on [...] a stool softener that is safe for terminal block assembler usage (no risk of dependency) andthe dosage [...] (GERD) Often a combination of anti-nausea medications (wlka-nyh-obfxczf or prescription) works better thanhigh doses of [...] for misuse/misinterpretation of this information Patient Resources [place] [employer] https://www.gastro.org/practice-guidance/hd-rerwrds-ibpqal/ topic/mpnlsvtbc-vtefi-snxiwphn-ibs Badgut.org https://badgut.org/information-centre/k-i-asvfdatyy-topics/ibs/ AboutIBS.org https://www.aboutibs.org/ Uptodate.com https://www.uptodate.com/contents/hjxgxsmar-plepg-fngwdwke-sqhfji-hyj-lqnors documented in this encounter Progress Notes * [...] Denies weight loss Last colo 2017 at [facility] with no polyps. Current Regimen: Metamucil daily [...] recommendations above. The patient was located in [place] at the time of their visit. TIME SPENT WITH PATIENT Time spent reviewing records prior to this encounter on day of appointment: 2 minutes Time spent during encounter with patient including counselin minutes Time spent documenting encounter after office visit: 7 minutes Yoel Dangelo [place] [facility] [place] [address] documented in this encounter Plan of Treatment Upcoming Encounters Date Type Department Care Team (Late st Contact Info) Description 10/01/2024 10:00 AM EST Office Visit Cardiology at [address] [place] [address] Mushtaq Murphy APRN Scheduled Orders Name Type [...] type documented in this encounter Care Teams Decal Cutter Relationship Specialty Start Date End Date Yoel Artis APRN [address] [place] [address] PCP - General Internal Medicine 11/18/22 07/29/24 documented as of this encounter
--- OUTSIDE RECORDS SUMMARY | 2024-09-03 11:02 | XMS_ITS | Encounter Summary ---
Author Organization [place] [address] Care Team Providers Care Visual Manager Name Role Phone Anibal Mtz MD Primary Care Provider [phone] Encounter Details Date Type Department Care Team (Late st Contact Info) Description 11/08/2022 Interpretation Only [address] [phone] Eve Frost MD [address] [place] [phone] Social History Tobacco Use Types Packs/Day Years [...] 10:00 AM EST Office Visit Cardiology at [address] [address] Mushtaq Murphy APRN documented as of this encounter Procedures Procedure Name Priority Date/Time Associated Diagnosis Comments XR CHEST PA AND LATERAL STAT 11/08/2022 10:34 AM EST documented in this encounter Results * XR Chest PA & Lateral (Generic) (11/08/2022 10:34 AM EST) PT CLASS E RAD ADMITDTTM RAD PT RAD INFO [id number]^C HANDER^SUNEE R RAD EXAM DESC XCXR2^XR CHEST [...] questions please contact the health home care manager rn that requested your imaging first. ? Electronically signed by: Alejandro Tenorio MD, [facility] ([phone]), at 11/08/2022 10:37 AM Narrative 11/08/2022 10:37 [...] have questions please contactthe health home care manager rn that requested your imaging first. Eve Frost MD IMG DX ORDERABLES documented in this encounter Visit Diagnoses Not on filedocumented in this encounter Care Teams Visual Manager Relationship Specialty Start Date End Date Anibal Mtz MD [address] [place] [address] PCP - General Family Medicine 01/17/19 11/17/22 documented as of this encounter
--- OUTSIDE RECORDS SUMMARY | 2024-09-03 11:02 | XMS_ITS | Encounter Summary ---
Author Organization [facility] Address [facility] [place] [address] Care Team Providers Care Slot Tag Inserter Name Role Phone Yoel Artis Ute ALCALA Primary Care Provider [phone] Reason for Visit * Auth/Cert (Routine) Specialty Diagnoses / Procedures Referred By Conteleazar t Referred To Contact Diagnoses Anal spasm Fecal smearing Constipation, unspecified Rectal pain, fecal smearing Procedures PRO COLONOSCOPY, DIAGNOSTIC PRO COLONOSCOPY, BIOPSY PRO COLONOSCOPY, REMV LESN, SNARE COLONOSCOPY, DIAGNOSTIC (WRVU 3.26) Brandan Mcgovern MD [facility] [place] [address] [facility] Referral ID Status Reason Start Date Expiration Date Visits Re quested Visits Authorized [id number] 1 1 Encounter Details Date Type Department Care Team (Latest Contact Info) Description 08/30/2023 10:09 AM EST - 08/30/2023 12:19 PM EST Hospital Encounter [place] [address] Brandan Mcgovern MD [facility] [place] [place] [address] Discharge Disposition: Home Social History Tobacco Use [...] occurs, please contact your Doctor. Please call [phone] before 8pm Mon-Fri with problems, questions or concerns. If you call after 8pm or on weekends, call the Hospital at [phone] and ask to speak to the Pollution Control Engineer snuff container inspector and the knitting machine operator automatic will contact that person for you. When should you call for help? Call [phone] anytime you think you may need emergency [...] any problems. Where can you learn more? [facility] View your After Visit Summary and more online at [email or web address] If you would like to provide [...] cost to you. Content Version: 12.2 ?? [id number] [employer] Care instructions adapted under license by [facility]. If you have questions about a medical condition or this instruction, always ask your healthcare professional. [employer] disclaims any warranty or liability for your [...] evening. 04/17/2023 08/04/2024 nitroGLYcerin (NITROLINGUAL) 400 mcg/spray [place], Non-AerosolIndications:P roctalgia fugax,Fecal smearing,Constipation, unspecified constipation type [...] AM EST Office Visit Cardiology at [address] [address] Mushtaq Murphy, FREDRICK documented as of this encounter Procedures Procedure Name Priority Date/Time Associated Diagnosis Comments SPECIMEN TO PATHOLOGY Routine 08/30/2023 11:23 AM EST SURGICAL PATHOLOGY REPORT Routine 08/30/2023 11:21 AM EST COLONOSCOPY Routine 08/30/2023 10:57 AM EST Colonoscopy, Remv Lesn, Snare ([id number]) 08/30/2023 10:44 AM EST Proctalgia fugax Fecal smearing Constipation, unspecified constipation type documented in this encounter Results * Specimen to Pathology (08/30/2023 11:23 AM EST) AP Specimen 08/30/2023 11:2 3 AM EST 08/30/2023 11:[address] [facility] - 08/30/2023 11:23 AM EST Specimen requisition ordered. ??Separate Pathology report to follow Brandan Mcgovern MD PATHOLOGY/CYTOLOGY O JOSH Performing Organization Address [facility]/ZIP Co de Phone Number [facility] [place] [phone] * Surgical Pathology Report (08/30/2023 11:21 AM EST) Final Diagnosis [id number] ? Location: 4T; EA12; A The signing pathologist has (i) examined the relevant preparation(s) for the specimen(s) and (ii) rendered or confirmed the diagnosis(es). . ?Surgical Pathology DIAGNOSIS A - Sigmoid colon polyp, resection (Multiple): - ??Tubular adenoma. CR-PX Electronically signed by: ?Blake ORTEGA PhD, Yulia Verified: ??09/08/2023 14:48 ??Pathologist Performed at: ??-[facility] [place], [place] [address] Upstream Biomanufacturing Technician: Fercho Chan MD, FCAP, ??CLIA Certificate: [id number] SPECIMEN(S) SUBMITTED A - Sigmoid colon polyp, resection (Multiple) CLINICAL INFORMATION 73-year-old male, history of rectal pain SPECIMEN PROCESSING A - Labeled/Fixativ e: Sigmoid colon polyp, formalin. Quantity/Size: Single, 0.8 cm. Tissue Description: Soft, candelaria tissue. Sections/Proces sing: Submitted in toto ??in 1 cassette labeled A1. ??sdy 09/08/2023 2:48 PM EST [facility] GI Biopsy 08/30/2023 11:2 1 AM EST 08/30/2023 11:21 AM EST Brandan Mcgovern MD PATHOLOGY/CYTOLOGY O JOSH Performing Organization Address City/[facility]/ZIP Co de Phone Number [facility] [place] [address] [facility] [place] [address] * COLONOSCOPY (08/30/2023 10:57 AM EST) COLONOSCOPY [facility] Endoscopy Procedure Date: 08/30/2023 10:57 AM ? Patient Name: Korey Montoya ? Date of : 1950 ? Age: 73 ? Order #: [id number] ? Instrument Name: [id number]- [id number] ? Procedure: ? Colonoscopy Indications: ? Rectal [...] preparation was evaluated ? using the BBPS (Sigma Force Bowel ? Preparation Scale) with scores of: [...] RN) documented in this encounter Care Teams Slot Tag Inserter Relationship Specialty Start Date End Date Yoel Artis APRN [address] [place] [address] PCP - General Internal Medicine 11/18/22 07/29/24 documented as of this encounter
--- OUTSIDE RECORDS SUMMARY | 2024-09-03 11:02 | XMS_ITS | Encounter Summary ---
Author Organization [facility] [place] [address] Care Team Providers Care Pipe Line Repairer Name Role Phone Yoel Artis Ute ALCALA Primary Care Provider [phone] Reason for Visit * Auth/Cert (Routine) Specialty Diagnoses / Procedures Referred By Conteleazar t Referred To Contact Diagnoses Anal spasm Fecal smearing Constipation, unspecified Rectal pain, fecal smearing Procedures PRO COLONOSCOPY, DIAGNOSTIC PRO COLONOSCOPY, BIOPSY PRO COLONOSCOPY, REMV LESN, SNARE COLONOSCOPY, DIAGNOSTIC (WRVU 3.26) Brandan Mcgovern MD [facility] [place] [address] [facility] Referral ID Status Reason Start Date Expiration Date Visits Re quested Visits Authorized [id number] 1 1 Encounter Details Date Type Department Care Team (Late st Contact Info) Description 08/30/2023 11:00 AM EST - 08/30/2023 12:00 PM EST Surgery [place] [address] Brandan Mcgovern MD [facility] [address] COLONOSCOPY, POLYPECTOMY, REMOVAL LESION BY SNARE (WRVU [...] occurs, please contact your Doctor. Please call [phone] before 8pm Mon-Fri with problems, questions or concerns. If you call after 8pm or on weekends, call the Hospital at [phone] and ask to speak to the Shipyard Painter Helper continuous improvement analyst and the chucking and sawing machine operator will contact that person for you. When should you call for help? Call [phone] anytime you think you may need emergency [...] any problems. Where can you learn more? [facility] View your After Visit Summary and more online at [email or web address] If you would like to provide feedback about your hospital experience, please call the Office of Patient and Family Relations at . If you have received this After Visit Summary in error, please immediately return it in person to the department, or notify the [facility] Privacy Office by calling toll free at between the hours of 8AM and 5PM to arrange for our retrieval of the documents at no cost to you. Content Version: 12.2 ?? [id number] [email or web address] Care instructions adapted under license by [facility]. If you have questions about a medical condition or this instruction, always ask your healthcare professional. [email or web address] disclaims any warranty or liability for your [...] evening. 04/17/2023 08/04/2024 nitroGLYcerin (NITROLINGUAL) 400 mcg/spray [place], Non-AerosolIndications:P roctalgia fugax,Fecal smearing,Constipation, unspecified constipation type [...] AM EST Office Visit Cardiology at [address] [address] Mushtaq Murphy APRN documented as of this encounter Procedures Procedure Name Priority Date/Time Associated Diagnosis Comments SPECIMEN TO PATHOLOGY Routine 08/30/2023 11:23 AM EST SURGICAL PATHOLOGY REPORT Routine 08/30/2023 11:21 AM EST COLONOSCOPY Routine 08/30/2023 10:57 AM EST Colonoscopy, Remv Lesn, Snare ([id number]) 08/30/2023 10:44 AM EST Proctalgia fugax Fecal smearing Constipation, unspecified constipation type documented in this encounter Results * Specimen to Pathology (08/30/2023 11:23 AM EST) AP Specimen 08/30/2023 11:2 3 AM EST 08/30/2023 11:23 AM EST Narrative [facility] - 08/30/2023 11:23 AM EST Specimen requisition ordered. ??Separate Pathology report to follow Brandan Mcgovern MD PATHOLOGY/CYTOLOGY O JOSH Performing Organization Address [facility]/ZIP Co de Phone Number [facility] [place] [address] * Surgical Pathology Report (08/30/2023 11:21 AM EST) Final Diagnosis [id number] ? Location: 4T; EA12; A The signing pathologist has (i) examined the relevant preparation(s) for the specimen(s) and (ii) rendered or confirmed the diagnosis(es). . ?Surgical Pathology DIAGNOSIS A - Sigmoid colon polyp, resection (Multiple): - ??Tubular adenoma. CR-PX Electronically signed by: ?Blake ORTEGA PhD, Yulia Verified: ??09/08/2023 14:48 ??Pathologist Performed at: ??-[facility] Dept. of Pathology, [place] [address] Sales Route Driver Helper: Fercho Chan MD, AP, ??CLIA Certificate: [id number] SPECIMEN(S) SUBMITTED A - Sigmoid colon polyp, resection (Multiple) CLINICAL INFORMATION 73-year-old male, history of rectal pain SPECIMEN PROCESSING A - Labeled/Fixativ e: Sigmoid colon polyp, formalin. Quantity/Size: Single, 0.8 cm. Tissue Description: Soft, candelaria tissue. Sections/Proces sing: Submitted in toto ??in 1 cassette labeled A1. ??sdy 09/08/2023 2:48 PM EST [facility] GI Biopsy 08/30/2023 11:2 1 AM EST 08/30/2023 11:21 AM EST Brandan Mcgovern MD PATHOLOGY/CYTOLOGY O JOSH [facility] [place] [place] [address] [place] [address] * COLONOSCOPY (08/30/2023 10:57 AM EST) [facility] COLONOSCOPY [facility] Endoscopy Procedure Date: 08/30/2023 10:57 AM ? Patient Name: Korey Montoya ? Date of : 1950 ? Age: 73 ? Order #: [id number] ? Instrument Name: [id number]- [id number] ? Procedure: ? Colonoscopy Indications: ? Rectal [...] preparation was evaluated ? using the BBPS (Kamuela Bowel ? Preparation Scale) with scores of: [...] Provider: Tika Fowler RN)1102 (Given - Provider: iTka Fowler RN) midazolam (pf) (Versed) (1 mg/mL) multi-dose injection (CANCELED) PRN, Starting on Tue08/30/23 at 1046, Until Tue08/30/23 at 1419, Intra-Operative (Intra-Procedure), Routine 1046 (Given - Provid er: Tika Fowler RN)1049 (Given - Provider: Tika Fowler RN)1057 (Given - Provider: Tika Fowler RN)1100 (Given - Provider: Tika Fowler RN)1106 (Given - Provider: Tika Fowler RN) documented in this encounter Care Teams Pipe Line Repairer Relationship Specialty Start Date End Date Yoel Artis, FREDRICK [address] [place] [address] PCP - General Internal Medicine 11/18/22 07/29/24 documented as of this encounter
--- OUTSIDE RECORDS SUMMARY | 2024-09-03 11:02 | XMS_ITS | Encounter Summary ---
Author Organization [place] [address] Care Team Providers Care Dispensary Clerk Name Role Phone Unknown Primary Care Provider Unavailabl e Encounter Details Date Type Department Care Team (Late st Contact Info) Description 12/03/2018 Interpretation Only [address] [phone] Ac Albrecht PA [address] [place] [address] [place] [address] Social History Tobacco Use Types Packs/Day Years [...] AM EST Office Visit Cardiology at [address] [address] Mushtaq Murphy APRN documented as of this [...] Electronically signed by: Darvin Noyola [facility] ([phone]), at 12/03/2018 1:33 PM Narrative 12/03/2018 1:38 [...] Electronically signed by: Darvin Noyola [facility]([phone]), at 12/03/2018 1:33 PM Ac [facility] IMG DX ORDERABLES documented in this encounter Visit Diagnoses Not on filedocumented in this encounter Care Teams Dispensary Clerk Relationship Specialty Start Date End Date Unknown None PCP - General 08/04/10 01/16/19 documented as of this encounter
--- OUTSIDE RECORDS SUMMARY | 2024-09-03 11:02 | XMS_ITS | Encounter Summary ---
[place] [address] Care Team Providers Care Protozoology Teacher Name Role Phone Yoel Artis APRN Primary Care Provider [phone] Reason for Referral * Consultation (Routine) - Closed Specialty Diagnoses / Procedures Referred By Theodore muro Referred To Contact Urology Diagnoses Raised prostate specific antigen PERSISTENTLY MILDLY ELEVATED PSA, URINARY FREQ Yoel Artis APRN [address] [place] [address] [facility] [place] [address] Referral ID Status Reason Start Date Expiration Date V isits Requested Visits Authorized [id number] Closed Consult, Test & Treat PCP Updated and/or Approved 07/30/2023 07/29/2024 6 6 Encounter Details Date Type Department Care Team (Late st Contact Info) Description 07/30/2023 Transcribe Orders eDH Incoming Referrals [phone] Yoel Artis APRN [address] [place] [address] Raised prostate specific antigen Social [...] AM EST Office Visit Cardiology at [address] [address] Mushtaq Murphy APRN Scheduled Referrals Name Type Priority Associated Diagnoses Orde r Schedule Referral to Urology Outpatient Referral Routine Raised prostate specific antigen Ordered: 07/30/2023 documented as of this encounter Visit Diagnoses Diagnosis Raised prostate specific antigen Elevated prostate specific antigen (PSA) documented in this encounter Care Teams Protozoology Teacher Relationship Specialty Start Date End Date Yoel Artis APRN [address] [place] [address] PCP - General Internal Medicine 11/18/22 07/29/24 documented as of this encounter
--- OUTSIDE RECORDS SUMMARY | 2024-09-03 11:02 | XMS_ITS | Encounter Summary ---
Author Organization [facility] [place] [address] Care Team Providers Care Vocational Services Specialist Name Role Phone Anibal Mtz MD Primary Care Provider [phone] Encounter Details Date Type Department Care Team (Late st Contact Info) Description 01/18/2019 3:00 PM EDT Interpretation Only Cardiology at [address] [address] Alberto Powell Jr., MD Dizziness Social History [...] AM EST Office Visit Cardiology at [address] [address] Mushtaq Murphy APRN documented as of this [...] giddiness documented in this encounter Care Teams Vocational Services Specialist Relationship Specialty Start Date End Date Anibal Mtz MD [address] [place] [address] PCP - General Family Medicine 01/17/19 11/17/22 documented as of this encounter
--- OUTSIDE RECORDS SUMMARY | 2024-09-03 11:02 | XMS_ITS | Encounter Summary ---
Author Organization [facility] [place] [address] Care Team Providers Care Assembly Riveter Name Role Phone Yoel Artis APRN Primary Care Provider Encounter Details Date Type Department Care Team (Late st Contact Info) Description 03/01/2023 9:30 AM EDT - 03/01/2023 11:59 PM EDT Hospital Encounter [facility] [address] [place] [address] Yoel Artis APRN [address] [place] [address] Discharge Disposition: Home Social History Tobacco Use [...] AM EST Office Visit Cardiology at [address] [address] Mushtaq Murphy APRN documented as of this encounter Procedures Procedure Name Priority Date/Time Associated Diagnosis Comments PSA (ULTRASENSITIVE) Routine 03/01/2023 9:38 AM EDT documented in this encounter Results * (ABNORMAL) PSA (Ultrasensitive) (03/01/2023 9:38 AM EDT) Prostate Specific Antigen (Ultrasensitive) 5.09(H) 0.00 - 4.00 ng/mL [facility] Comment: PLEASE NOTE: The [...] In Lab Yoel Artis APRN CHEMISTRY ORDERABLES [facility] [place] [address] documented in this encounter Visit Diagnoses Not on filedocumented in this encounter Care Teams Assembly Riveter Relationship Specialty Start Date End Date Yoel Artis APRN [address] [place] [address] PCP - General Internal Medicine 11/18/22 07/29/24 documented as of this encounter
--- OUTSIDE RECORDS SUMMARY | 2024-09-03 11:02 | XMS_ITS | Encounter Summary ---
[place] [address] Care Team Providers Care Field Crops Harvest Machine Operator Name Role Phone Yoel Artis Ute ALCALA Primary Care Provider [phone] Encounter Details Date Type Department Care Team (Late st Contact Info) Description 08/26/2023 [place] [phone] Madelyn Vasquez Social History Tobacco Use Types [...] - 08/26/2023 9:23 AM EST Korey Montoya [id number] Diagnosis/Indication: Rectal pain, fecal smearing Please review [...] ever had a/an Colonoscopy before? Yes: Date [id number] ago [facility] If yes, did [...] your procedure. Who will likely be your chair car driver for the procedure? Please Verify the [...] 10:00 AM EST Office Visit Cardiology at [address] [address] Mushtaq Murphy APRN documented as of this encounter Visit Diagnoses Not on filedocumented in this encounter Care Teams Field Crops Harvest Machine Operator Relationship Specialty Start Date End Date Yoel Artis APRN [address] [place] [address] PCP - General Internal Medicine 11/18/22 07/29/24 documented as of this encounter
--- OUTSIDE RECORDS SUMMARY | 2024-09-07 11:09 | XMS_ITS | Clinical Summary ---
Author Organization [facility] Address [facility] [place] [address] Care Team Providers Care Gravity Prospecting Supervisor Name Role Phone Alexia Mtz BLOWER INSULATOR Primary Care Provider [phone] Allergies No known active allergies Medications Medication [...] Description 07/31/2024 4:45 PM EST Anesthesia Event [employer] [place] [address] Venkatesh Mauricio MD 07/31/2024 4:30 PM EST - 07/31/2024 5:30 PM EST Surgery [employer] [place] [address] Maldonado Luis MD CARDIAC CATHETERIZATION 07/29/2024 6:32 PM EST - 07/29/2024 11:59 PM EST Hospital Encounter [facility] at [address] [phone] Arvin Becerra MD Discharge Disposition: Home 07/29/2024 12:00 PM EST - 07/29/2024 12:54 PM EST Surgery [employer] [place] [address] Vahe Marvin MD CARDIAC CATHETERIZATION 07/29/2024 11:45 AM EST - 08/04/2024 5:00 PM EST Hospital [place] [address] Vahe Marvin MD Dadekian, Gregory A, MD Welch, Terrence D, MD Vinod, Poornima, MD Kostojchin, Anastas, MD Kussaga, Frank M, MD ST elevation myocardial infarction involving left anterior descending (LAD) coronary artery; HFrEF (heart failure with reduced ejection fraction) Discharge Disposition: Home 07/29/2024 Orders Only [employer] [place] [address] Susannah Watts PA 07/29/2024 Interpretation Only [address] [phone] Deondre Ferrera MD 07/29/2024 [place] [address] Ivan Hernandez MD 07/29/2024 External [place] [address] 07/28/2024 Interpretation Only [address] [address] Quinten Coffey MD 06/25/2024 [place] [address] Aubrey Cali MD Pyuria from [...] oz pur e alcohol) [facility] Utilities Answer Date Recorded In the past 12 months has th e [employer], gas, oil, or water [employer] threatened to shut off services in your [...] any time in the past 12 m [facility], were you homeless or living in a [...] AM EST Office Visit Cardiology at [address] [phone] Mushtaq Murphy, FREDRICK Health Maintenance Due Date [...] - 9.50 x10(3)/mc L 08/04/2024 6:39 AM [facility] Red Blood Cell 4.28(L) 4.58 - 5.54 x10(6)/mc L 08/04/2024 6:39 AM [facility] Hemoglobin 11.6(L) 13.7 - 16.5 g/dL 08/04/2024 6:39 AM [facility] Hematocrit 34.8(L) 40.5 - 48.5 % 08/04/2024 6:39 AM [facility] Mean Cell Volume 81.3(L) 82.9 - 93.1 fL 08/04/2024 6:39 AM [facility] Mean Cell Hemoglobin 27.1(L) 27.5 - 32.1 pg 08/04/2024 6:39 AM [facility] Mean Cell Hemoglobin Concentration 33.3 32.0 - 35.7 g/dL 08/04/2024 6:39 AM [facility] Platelet 178 145 - 357 x10(3)/mc L 08/04/2024 6:39 AM [facility] Mean Platelet Volume 10.6 7.6 - 12.9 fL 08/04/2024 6:39 AM [facility] RDW Standard Deviation 42.0 36.0 - 45.0 fL 08/04/2024 6:39 AM [facility] RDW coefficient of variation 14.3(H) 11.4 - 13.8 % 08/04/2024 6:39 AM [facility] NRBC% auto 0.0 % 08/04/2024 6:39 AM [facility] NRBC Absolute <0.01 <0.01 x10(3)/mc L 08/04/2024 6:39 AM [facility] Neutrophil % 72.1 % 08/04/2024 6:39 AM [facility] Neutrophil Absolute (ANC) - Automated 5.24 1.70 - 6.10 x10(3)/mc L 08/04/2024 6:39 AM [facility] Lymph % 16.8 % 08/04/2024 6:39 AM [facility] Lymph Absolute 1.22 0.90 - 3.20 x10(3)/mc L 08/04/2024 6:39 AM [facility] Monocyte % 8.5 % 08/04/2024 6:39 AM [facility] Monocyte Absolute 0.62 0.30 - 0.90 x10(3)/mc L 08/04/2024 6:39 AM [facility] Eos % 1.9 % 08/04/2024 6:39 AM [facility] Eos Absolute 0.14 0.00 - 0.40 x10(3)/mc L 08/04/2024 6:39 AM [facility] Basophil % 0.4 % 08/04/2024 6:39 AM [facility] Baso Absolute <0.04 0.00 - 0.10 x10(3)/mc L 08/04/2024 6:39 AM [facility] Immature Gran % 0.3 % 6:39 AM [facility] Immature Gran Absolute <0.04 0.00 - 0.04 x10(3)/mc L 08/04/2024 6:39 AM [facility] Blood VENOUS BLOOD SPECIMEN / Unknown Venipuncture / Unknown 08/04/2024 6:08 AM EST 08/04/2024 6:19 AM EST Bridgette Stauffer MD HEMATOLOGY ORDERABLE S Performing Organization Address City/[facility]/ZIP Co de Phone Number [facility] [place] [address] * Magnesium (08/04/2024 6:08 AM EST) Only the most recent of8 resultswithin the time period is included. Magnesium 0.85 0.69 - 1.07 mMol/L 08/04/2024 7:07 AM [facility] Blood VENOUS BLOOD SPECIMEN / Unknown Venipuncture / Unknown 08/04/2024 6:08 AM EST 08/04/2024 6:19 AM EST Bridgette Stauffer MD CHEMISTRY ORDERABLES Performing Organization Address [facility] Co de Phone Number [facility] [place] [address] * Basic Metabolic Panel (08/04/2024 6:08 AM EST) Only the most recent of7 resultswithin the time period is included. Glucose 93 65 - 199 mg/dL 08/04/2024 7:07 AM [facility] Comment:Glucose Concentratio n >=200 mg/dL plus symptoms is consistent with Diabetes Mellitus. Blood Urea Nitrogen 14 10 - 20 mg/dL 08/04/2024 7:07 AM [facility] Creatinine 1.07 0.80 - 1.50 mg/dL 08/04/2024 7:07 AM [facility] Sodium 138 135 - 145 mMol/L 08/04/2024 7:07 AM [facility] Potassium 4.3 3.5 - 5.0 mMol/L 08/04/2024 7:07 AM [facility] Chloride 107 98 - 107 mMol/L 08/04/2024 7:07 AM [facility] Carbon Dioxide 23 22 - 31 mMol/L 08/04/2024 7:07 AM [facility] Anion Gap 8 5 - 15 mMol/L 08/04/2024 7:07 AM EST [facility] Calcium 8.5 8.5 - 10.5 mg/dL 08/04/2024 7:07 AM EST [facility] Est Glomerular Filtration Rate - Male 74 mL/min/1. 73 m?? 08/04/2024 7:07 AM EST [facility] Comment: This patient's estimated [...] Stauffer MD CHEMISTRY ORDERABLES Performing Organization Address City/[facility]/ZIP Co de Phone Number [facility] [place] [address] * POC, GLUCOSE (08/02/2024 7:47 AM EST) Only the most recent of16 resultswithin the time period is included. [facility] Signature Glucometer, POC 89 65 - 199 mg/dL 08/02/2024 7:47 AM EST [facility] Comment:Supplemental ranges: <140 mg/dL before meals <180 mg/dL all other times of the day. Blood CAPILLARY BLOOD / Unknown 08/02/2024 7:47 AM EST 08/02/2024 7:47 AM EST Arnel Parker MD POINT OF CARE TEST O RDERABLES Performing Organization Address City/[facility]/ZIP Co de Phone Number [facility] [place] [address] * Scan Doc: Telemetry Strips (08/02/2024 7:37 [...] - 5.0 mMol/L 08/01/2024 9:21 PM EST [facility] Blood VENOUS BLOOD SPECIMEN / Unknown Venipuncture / Unknown 08/01/2024 8:39 PM EST 08/01/2024 8:51 PM EST Jay Silverio MD CHEMISTRY ORDERABL ES [facility] [place] [address] * (ABNORMAL) Cooximetry, POC (08/01/2024 10:45 AM EST) Only the most recent of2 resultswithin the time period is included. pO2, Coox 32 mmHg 08/01/2024 10:48 AM EST [facility] Hemoglobin, Coox 12.9(L) 13.7 - 16.5 g/dL 08/01/2024 10:48 AM EST [facility] Oxyhemoglobin, Coox 66.7 % 08/01/2024 10:48 AM EST [facility] Carboxyhemoglo bin, Coox 1.1 % 08/01/2024 10:48 AM EST [facility] Comment: Nonsmokers: 0.5-1.5% COHB ?? Smokers: Variable ??but usually less than 10% ?? Toxic: 20-30% COHB ?? Lethal: Greater than 60% COHB Methemoglobin, Coox 0.3 <=1.5 % 08/01/2024 10:48 AM EST [facility] Blood (Mixed Venous) 08/01/2024 10:45 AM EST 08/01/2024 10:48 AM EST Arnel Parker MD POINT OF CARE TEST O RDERABLES Performing Organization Address [facility]/State/[facility] Co de Phone Number [facility] [place] [address] * CARDIAC CATHETERIZATION (07/31/2024 5:53 PM EST) Only the most recent of2 resultswithin the time period is included. Anatomical Region Laterality Modality Other Narrative 08/01/2024 12:37 PM EST ?[facility] ? Cardiac Catheterization/Intervention Report ? Patient Name: MontoyaKorey. ? Procedure Date: 07/31/2024 ? A #: [id number] ? Primary Physician: Maldonado Luis ? Case #: [id number] ? File Name: [id number] ? Catheterization Order Number: [id number] ? [facility] ? Final Report [place], [place] ? Patient Name: ? Korey Montoya ?ID#: ?[id number] ? : ?1950 ? Procedure Date: ? [...] ? 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 ??Good [...] Korey Montoya Procedure Date: 07/31/2024 A #: [id number] Primary Physician: Maldonado Luis Case #: [id number] File Name: [id number] Catheterization Order Number: [id number] [facility] FinalReport [place], [place] Patient Name: Korey Montoya ID#:[id number] :1950 Procedure Date: July 31, 2024 Case [...] was designated as ASA Class IV. [facility] clinical frailtyscale is 4: Vulnerable. Diagnostic [...] procedures. Comments: Impella removed from the right DIESEL MOTOR MECHANIC with deployment of Perclose and Angioseal. Good [...] 7.48(H) 7.35 - 7.45 07/31/2024 8:30 AM [facility] PCO2, Arterial 29(L) 35 - 45 mmHg 07/31/2024 8:30 AM [facility] PO2, Arterial 71(L) 85 - 104 mmHg 07/31/2024 8:30 AM [facility] Bicarbonate, Arterial 20.6 20.0 - 26.0 mmol/L 07/31/2024 8:30 AM [facility] Base Excess, Arterial -3.0 -3.0 - 3.0 mmol/L 07/31/2024 8:30 AM [facility] Hemoglobin, Arterial 12.3(L) 13.7 - 16.5 g/dL 07/31/2024 8:30 AM [facility] Oxyhemoglobin, Arterial 94.4 94.0 - 97.0 % 07/31/2024 8:30 AM [facility] Carboxyhemoglobin , Arterial 0.7 % 07/31/2024 8:30 AM [facility] Comment: Nonsmokers: 0.5-1.5% COHB ?? Smokers: Variable ??but usually less than 10% ?? Toxic: 20-30% COHB ?? Lethal: Greater than 60% COHB Methemoglobin, Arterial 0.3 <=1.5 % 07/31/2024 8:30 AM [facility] Sodium, Arterial 138 135 - 145 mmol/L 07/31/2024 8:30 AM [facility] Potassium, Arterial 3.5 3.5 - 5.0 mmol/L 07/31/2024 8:30 AM [facility] Chloride, Arterial 109(H) 98 - 107 mmol/L 07/31/2024 8:30 AM [facility] Lactate, Arterial 0.8 0.5 - 2.2 mmol/L 07/31/2024 8:30 AM [facility] Fraction of Inspired Oxygen 21 % 07/31/2024 8:30 AM [facility] PF Ratio 338 Ratio 07/31/2024 8:30 AM [facility] Comment:PF ratio calculated using the non-temperature corrected pO2 result. IONIZED CALCIUM, ARTERIAL 1.08(L) 1.15 - 1.33 mmol/L 07/31/2024 8:30 AM [facility] Glucose, Arterial 86 65 - 199 mg/dL 07/31/2024 8:30 AM [facility] Comment:Glucose Concentratio n >=200 mg/dL plus symptoms is consistent with Diabetes Mellitus. Blood ARTERIAL BLOOD / Unknown 07/31/2024 8:29 AM EST 07/31/2024 8:30 AM EST Arnel Parker MD POINT OF CARE TEST O RDERABLES [facility] [place] [address] * (ABNORMAL) Hepatic Function Panel (07/31/2024 1:08 AM EST) Albumin 3.1(L) 3.2 - 5.2 g/dL 07/31/2024 1:46 AM [facility] Aspartate Aminotransferase 192(H) <=39 unit/L 07/31/2024 1:46 AM [facility] Alanine Aminotransferase 59(H) 0 - 55 unit/L 07/31/2024 1:46 AM [facility] Alkaline Phosphatase 46 40 - 130 unit/L 07/31/2024 1:46 AM [facility] Bilirubin, Total 0.4 <=1.3 mg/dL 07/31/2024 1:46 AM [facility] Bilirubin, Direct <0.2 0.0 - 0.3 mg/dL 07/31/2024 1:46 AM EST [facility] Protein, Total 5.0(L) 6.1 - 8.0 g/dL 07/31/2024 1:46 AM [facility] Blood VENOUS BLOOD SPECIMEN / Unknown Venipuncture / Unknown 07/31/2024 1:08 AM EST 07/31/2024 1:18 AM EST Arnel Parker MD CHEMISTRY ORDERABLES Performing Organization Address City/[facility]/ZIP Co de Phone Number [facility] [place] [address] * (ABNORMAL) Phosphorus (07/30/2024 3:08 PM EST) Only the most recent of3 resultswithin the time period is included. Phosphorus 2.1(L) 2.5 - 4.5 mg/dL 07/30/2024 3:58 PM EST [facility] Blood VENOUS BLOOD SPECIMEN / Unknown Venipuncture / Unknown 07/30/2024 3:08 PM EST 07/30/2024 3:12 PM EST Jay Silverio MD CHEMISTRY ORDERABL ES Performing Organization Address City/[facility]/ZIP Co de Phone Number [facility] [place] [address] * ECHO LMTD W CONTRAST W LMTD SPEC DOPP COLOR DOPP (07/30/2024 11:42 AM EST) Anatomical Region Laterality Modality Cardiac Other 07/30/2024 10:2 2 AM EST Narrative 07/30/2024 12:34 PM EST [address] [place] [address] ? Echocardiogram Report Name: KOREY MONTOYA ? Study Date: 07/30/2024 10:22 AMBP: 124/66 mmHg : 1950 ? Height: 168 cm ? Account: [id number] Age: 74 yrs ? Weight: 65 kg Gender: Male ?BSA: 1.7 m2 Ordering Physician: Jay Silverio MD Referring Physician: DEONDRE FERRERA Performed By: OMERO Millan Reason For Study: ST elevation myocardial infarction involving left anterior descending (LAD) coronary artery Interpreting Fellow: Ivan Hernandez. Exam Location: [facility]. Interpretation Summary Left ventricle is [...] Compared to the overnight study by the dust control engineer fellow the impella position is stable. 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 Procedure Limited - 73176. Image enhancement Definity was used for both [...] Note Kathleen Banda MD - 07/30/2024 1 [place] [address] Echocardiogram Report Name: KOREY MONTOYA Study Date: 410:22 AMBP: 124/66 mmHg : 1950 Height: 168 cm Account: [id number] Age: 74 yrs Weight: 65 kg Gender: Male BSA: 1.7 m2 Ordering Physician: Jay Silverio MD Referring Physician: DEONDRE FERRERA Performed By: OMERO Millan Reason For Study: ST elevation myocardial infarction involving leftanterior descending (LAD) coronary artery Interpreting Fellow: Ivan Hernandez. Exam Location: [facility]. Interpretation Summary Left ventricle is [...] Compared to the overnight study by the dust control engineer fellow the impella positionis stable. The global left ventricular systolic function has improvedpredominantly via recruitment outside the LAD territory which remains akinetic. Procedure Limited - 99713. Image enhancement Definity was used for both [...] 8,651(H) <=22 ng/L 07/30/2024 9:06 AM EST [facility] Comment: This patient's troponin [...] troponin value can be found in the [facility] Test Catalog Troponin - [email or web address]/[email or web address]/[email or web address] Reference: Fourth Holcomb Definition of Myocardial Infarction. Journal of the [employer] 2018;72:7125-1771 Blood VENOUS BLOOD SPECIMEN / Unknown Venipuncture / Unknown 07/30/2024 8:09 AM EST 07/30/2024 8:26 AM EST Jay Silverio MD CHEMISTRY ORDERABL ES Performing Organization Address City/State/[facility] Co de Phone Number [facility] [place] [address] * Echocardiogram Transthoracic (07/30/2024 1:41 AM EST) Anatomical Region Laterality Modality Cardiac Other 07/30/2024 1:41 AM EST Narrative 07/30/2024 8:23 AM EST [address] [place] [address] ? Echocardiogram Report Name: KOREY MONTOYA ? Study Date: 07/30/2024 01:41 AM : 1950 ? Height: 168 cm Age: 74 yrs ? Weight: 5.9 kg Gender: Male ?BSA: 0.63 m2 Performed By: Beatris Ching MD Reason For Study: STEMI, VT History: ASCVD, HTN, HLD Interpreting Fellow: Beatris Ching. Interpretation Summary This is a limited study performed by a fellow dust control engineer to evaluate for cardiogenic shock with impella [...] study available for comparison. Procedure Limited - 11123. Suboptimal quality. There is sinus bradycardia. Left [...] Note Kathleen Banda MD - 07/30/2024 1 [place] [address] Echocardiogram Report Name: KOREY MONTOYA Study Date: 07/30/2024 01:41AM : 1950 Height: 168 cm Age: 74 yrs Weight: 5.9 kg Gender: Male BSA: 0.63 m2 Performed By: Beatris Ching MD Reason For Study: STEMI, VT History: ASCVD, HTN, HLD Interpreting Fellow: Beatris Ching. Interpretation Summary This is a limited study performed by a fellow dust control engineer to evaluate forcardiogenic shock with impella in. [...] study available for comparison. Procedure Limited - 96102. Suboptimal quality. There is sinus bradycardia. Left [...] Recheck AB POSITIVE 07/29/2024 10:13 PM EST [facility] Blood VENOUS BLOOD SPECIMEN / Unknown Venipuncture / Unknown 07/29/2024 6:43 PM EST 07/29/2024 7:15 PM EST Jay Silverio MD BLOOD BANK LAB ORD ERABLES Performing Organization Address City/[facility]/ZIP Co de Phone Number [facility] [place] [address] * Type and screen ([facility]JONG/MAGALIE) (07/29/2024 5:56 PM EST) Pathologist [facility] ABORH Type AB POSITIVE 07/29/2024 9:44 PM EST [facility] PATIENT HISTORY Not Found 07/29/2024 9:44 PM EST [facility] Expires at [id number] on: 08/01/2024 07/29/2024 9:44 PM EST [facility] ANTIBODY SCREEN AUTOMATED Negative 07/29/2024 9:44 PM EST [facility] T&S only valid at [facility] 07/29/2024 9:44 PM EST [facility] Blood VENOUS BLOOD SPECIMEN / Unknown Venipuncture / Unknown 07/29/2024 5:56 PM EST 07/29/2024 6:07 PM EST Narrative [facility] - 07/29/2024 9:44 PM EST This Type and Screen result is only valid at the [facility] Jay Silverio MD BLOOD BANK LAB ORD ERABLES Performing Organization Address City/[facility] Co de Phone Number [facility] [place] [address] * EKG 12 Lead (07/29/2024 4:21 PM EST) Only the most recent of2 resultswithin the time period is included. Ventricular rate 72 BPM MUSE SYSTEM Atrial Rate 72 BPM MUSE SYSTEM P-R Interval 168 ms MUSE SYSTEM QRS Duration 82 ms MUSE SYSTEM Q-T Interval 392 ms MUSE SYSTEM QTC Calculated (Bezet) 429 ms MUSE SYSTEM Calculated P [place] 71 degrees MUSE SYSTEM Calculated R [place] 77 degrees MUSE SYSTEM Calculated T [place] 28 degrees MUSE SYSTEM INTERPRETATION Sinus rhythm with Premature supraventricular complexes and Occasional Premature ventricular complexes Low voltage QRS 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) Lateral injury pattern ACUTE [place] / STEMI Abnormal ECG When compared with ECG of 29-JUL-2024 13:43, (unconfirmed) Serial changes of evolving Anteroseptal infarct Present Confirmed by MD Marcus, Roverto (1963) on 07/31/2024 5:30:06 AM MUSE SYSTEM 07/29/2024 4:21 PM EST 07/31/2024 5:30 AM EST Jay Silverio MD ECG ORDERABLES Performing Organization Address City/[facility]/ZIP Co de Phone Number MUSE SYSTEM * Blood culture (07/29/2024 4:08 PM EST) Only the most recent of2 resultswithin the time period is included. Blood Culture No growth at 120 hours 08/03/2024 5:01 PM EST [facility] Blood VENOUS BLOOD SPECIMEN / Unknown Venipuncture / Unknown 07/29/2024 4:08 PM EST 07/29/2024 4:15 PM EST Jay Silverio MD MICROBIOLOGY - BLO OD ORDERABLES Performing Organization Address City/[facility] Co de Phone Number [facility] [place] [address] * XR Chest One View (07/29/2024 2:30 PM EST) Only the most recent of3 resultswithin the time period is included. WORKSTATION ID [id number] DH RAD Anatomical Region Laterality Modality Chest [...] who have questions please contact the health women's health care nurse practitioner that requested your imaging first. ? Electronically signed by: Chris Candelaria MD, [facility] ([phone]), at 07/29/2024 3:21 PM Narrative 07/29/2024 3:21 [...] patients who have questions please contactthe health women's health care nurse practitioner that requested your imaging first. Electronically signed by: Chris Candelaria MD, [facility]([phone]), at 07/29/2024 3:21 PM Vahe Marvin MD IMG DX ORDERABLES * TSH [place] (07/29/2024 2:03 PM EST) Thyroid Stimulating Hormone 0.70 0.27 - 4.20 mcIU/mL 07/29/2024 2:52 PM EST [facility] Blood VENOUS BLOOD SPECIMEN / Unknown Venipuncture / Unknown 07/29/2024 2:03 PM EST 07/29/2024 2:14 PM EST Vahe Marvin MD CHEMISTRY ORDERABLES Performing Organization Address City/[facility]/ZIP Co de Phone Number [facility] [place] [address] * CRP, acute inflammation (07/29/2024 2:03 PM EST) C-Reactive Protein <3.0 <=4.9 mg/L 07/29/2024 2:52 PM EST [facility] Blood VENOUS BLOOD SPECIMEN / Unknown Venipuncture / Unknown 07/29/2024 2:03 PM EST 07/29/2024 2:14 PM EST Vahe Marvin MD CHEMISTRY ORDERABLES Performing Organization Address City/[facility]/ZIP Co de Phone Number [facility] [place] [address] * (ABNORMAL) APTT (07/29/2024 2:03 PM EST) Partial Thromboplastin Time >160(HHH) 25 - 37 sec 07/29/2024 2:56 PM EST [facility] Blood VENOUS BLOOD SPECIMEN / Unknown Venipuncture / Unknown 07/29/2024 2:03 PM EST 07/29/2024 2:13 PM EST Vahe Marvin MD HEMATOLOGY ORDERABLE S [facility] [place] [address] * (ABNORMAL) Prothrombin Time (07/29/2024 2:03 PM EST) Prothrombin Time 14.2(H) 9.4 - 12.5 sec 07/29/2024 2:56 PM EST [facility] International Normalization Ratio 1.3 <=4.9 07/29/2024 2:56 PM EST [facility] Comment: An INR < [...] EST Vahe Marvin MD HEMATOLOGY ORDERABLE S [facility] [place] [address] * Hemoglobin A1c (07/29/2024 2:03 PM EST) Pathologist [facility] Hemoglobin A1c 5.3 4.3 - 5.6 % 07/29/2024 2:41 PM EST [facility] Comment: Per ADA guidelines, [...] red blood cell turnover may not be franchise sales representative of glycemic control. Reference Interval: 4.3 - 5.6% 5.7 - 6.4%: Consistent with prediabetes >=6.5%: Consistent with diagnosis of diabetes mellitus Estimated Average Glucose 07/29/2024 2:41 PM EST [facility] Comment:Estimated Average Gl ucose [...] into estimated average glucose values. ??Diabetes Care 2008:31(8):5585-4211. Additional resources are available on the ADA website (diabetes.org). Vahe Marvin MD CHEMISTRY ORDERABLES [facility] [place] [address] * Lipid Panel (Reflex Direct LDL) (07/29/2024 2:03 PM EST) [facility] Cholesterol, Total 133 mg/dL 07/29/2024 2:52 PM [facility] Comment: Desirable: < 200 mg/dL Borderline High: 200 - 239 mg/dL High: > or = 240 mg/dL Triglyceride 45 mg/dL 07/29/2024 2:52 PM [facility] Comment: Normal: <150 mg/dL Borderline High: 150-199 mg/dL High: 200-499 mg/dL Very High: > or =500 mg/dL HDL Cholesterol 58 mg/dL 4 2:52 PM [facility] Comment:Males: High Risk: <4 0 mg/dL LDL Cholesterol 64 mg/dL 4 2:52 PM [facility] Comment: Desirable: <100 mg/dL Above Desirable: 100-129 mg/dL Borderline High: 130-159 mg/dL High: 160-189 mg/dL Very High: > or =190 mg/dL Note: LDL calculation updated to the NIH LDL formula as of 04/15/2024 Non-HDL Cholesterol 75 mg/dL 07/29/2024 2:52 PM EST [facility] Comment: Desirable: <130 mg/dL [...] ACC/AHA Guidelines (most recently Rolf et al. [facility] 06/15/22): * For individuals with [...] artery disease) Vahe Marvin MD CHEMISTRY ORDERABLES [facility] [place] [address] * (ABNORMAL) Comprehensive metabolic panel (07/29/2024 2:03 PM EST) Glucose 243(H) 65 - 199 mg/dL 07/29/2024 3:11 PM EST [facility] Comment:Glucose Concentratio n >=200 mg/dL plus symptoms is consistent with Diabetes Mellitus. Blood Urea Nitrogen 13 10 - 20 mg/dL 07/29/2024 3:11 PM EST [facility] Creatinine 0.88 0.80 - 1.50 mg/dL 07/29/2024 3:11 PM EST [facility] Sodium 138 135 - 145 mMol/L 07/29/2024 3:11 PM EST [facility] Potassium 3.6 3.5 - 5.0 mMol/L 07/29/2024 3:11 PM EST [facility] Chloride 104 98 - 107 mMol/L 07/29/2024 3:11 PM EST [facility] Carbon Dioxide 19(L) 22 - 31 mMol/L 07/29/2024 3:11 PM EST [facility] Anion Gap 15 5 - 15 mMol/L 07/29/2024 3:11 PM EST [facility] Calcium 8.0(L) 8.5 - 10.5 mg/dL 07/29/2024 3:11 PM [facility] Protein, Total 6.0(L) 6.1 - 8.0 g/dL 07/29/2024 3:11 PM [facility] Albumin 3.6 3.2 - 5.2 g/dL 07/29/2024 3:11 PM [facility] Aspartate Aminotransferase 07/29/2024 3:11 PM [facility] Comment:Unable to report due to hemolysis. Alanine Aminotransferase 56(H) 0 - 55 unit/L 07/29/2024 3:11 PM [facility] Alkaline Phosphatase 58 40 - 130 unit/L 07/29/2024 3:11 PM [facility] Bilirubin, Total 0.5 <=1.3 mg/dL 07/29/2024 3:11 PM [facility] Est Glomerular Filtration Rate - Male 91 mL/min/1. 73 m?? 07/29/2024 3:11 PM [facility] Comment: This patient's estimated [...] PM EST Vahe Marvin MD CHEMISTRY ORDERABLES [facility] [place] [address] * (ABNORMAL) Blood Gas, Venous POC (07/29/2024 2:01 PM EST) pH, Venous 7.30(L) 7.32 - 7.42 07/29/2024 2:02 PM [facility] PCO2, Venous 42 38 - 58 mmHg 07/29/2024 2:02 PM [facility] PO2, Venous 39 16 - 65 mmHg 07/29/2024 2:02 PM [facility] Bicarbonate, Venous 20.1(L) 22 - 31 mmol/L 07/29/2024 2:02 PM [facility] Base Excess, Venous -6.4(L) 1.9 - 4.5 mmol/L 07/29/2024 2:02 PM [facility] Hemoglobin, Venous 14.2 13.7 - 16.5 g/dL 07/29/2024 2:02 PM [facility] Oxyhemoglobin, Venous 69.3 % 07/29/2024 2:02 PM [facility] Carboxyhemoglobin , Venous 0.8 % 07/29/2024 2:02 PM [facility] Comment: Nonsmokers: 0.5-1.5% COHB ?? Smokers: Variable ??but usually less than 10% ?? Toxic: 20-30% COHB ?? Lethal: Greater than 60% COHB Methemoglobin, Venous 0.3 <=1.5 % 07/29/2024 2:02 PM [facility] Sodium, Venous 137 135 - 145 mmol/L 07/29/2024 2:02 PM [facility] Potassium, Venous 3.6 3.5 - 5.0 mmol/L 07/29/2024 2:02 PM [facility] Chloride, Venous 103 98 - 107 mmol/L 07/29/2024 2:02 PM [facility] Glucose, Venous 229(H) 65 - 199 mg/dL 07/29/2024 2:02 PM [facility] Comment:Glucose Concentratio n >=200 mg/dL plus symptoms is consistent with Diabetes Mellitus. Lactate, Venous 3.1(H) 0.5 - 2.2 mmol/L 07/29/2024 2:02 PM [facility] Ionized Calcium, Venous 1.11(L) 1.15 - 1.33 mmol/L 07/29/2024 2:02 PM [facility] Blood VENOUS BLOOD SPECIMEN / Unknown 07/29/2024 2:01 PM EST 07/29/2024 2:02 PM EST Vahe Marvin MD POINT OF CARE TEST O RDERABLES [facility] [place] [address] * (ABNORMAL) BLOOD GAS, POC (07/29/2024 12:46 PM EST) Only the most recent of2 resultswithin the time period is included. Sodium, POC 139 135 - 145 mmol/L 07/30/2024 7:30 AM [facility] Potassium, POC 3.4(L) 3.5 - 5.0 mmol/L 07/30/2024 7:30 AM [facility] pH, POC 7.33(L) 7.35 - 7.45 07/30/2024 7:30 AM [facility] Ionized Calcium, POC 1.13(L) 1.15 - 1.33 mmol/L 07/30/2024 7:30 AM [facility] pCO2, POC 38 35 - 45 mmHg 07/30/2024 7:30 AM [facility] pO2, POC 94 85 - 104 mmHg 07/30/2024 7:30 AM [facility] Base Excess, POC -6.0(L) -3.0 - 3.0 mmol/L 07/30/2024 7:30 AM [facility] Hematocrit, POC 39.0(L) 40.5 - 48.5 %PCV 07/30/2024 7:30 AM [facility] Hemoglobin, POC 13.3(L) 13.7 - 16.5 g/dL 07/30/2024 7:30 AM EST [facility] Comment:The calculation of h emoglobin from hematocrit assumes a normal MCHC. Bicarbonate, POC 19.8(L) 20.0 - 26.0 mmol/L 07/30/2024 7:30 AM EST [facility] Carbon Dioxide, POC 21(L) 22 - 31 mmol/L 07/30/2024 7:30 AM EST [facility] Blood VENOUS BLOOD SPECIMEN / Unknown 07/29/2024 12:46 PM EST 07/30/2024 7:30 AM EST Vahe Marvin MD POINT OF CARE TEST O RDERABLES Performing Organization Address [facility]/[place] [address] * External Cardiology Result (07/29/2024 10:13 AM EST) Anatomical Region Laterality Modality Other Historical Provider EXTERNAL CARDIOLO GY RESULT * Urine culture (06/25/2024 11:55 AM EDT) Urine Culture No growth 06/26/2024 12:22 PM EDT [facility] Urine URINE SPECIMEN OBTAINED BY CLEAN CATCH PROCEDURE / Unknown 06/25/2024 11:55 AM EDT 06/25/2024 5:18 PM EDT Aubrey Cali MD MICROBIOLOGY - GENER AL ORDERABLES Performing Organization Address City/[facility]/ZIP Co de Phone Number [facility] [place] [address] * COLONOSCOPY (08/30/2023 10:57 AM EST) COLONOSCOPY [facility] Endoscopy Procedure Date: 08/30/2023 10:57 AM ? Patient Name: Korey Montoya ? Date of : 1950 ? Age: 73 ? Order #: [id number] ? Instrument Name: [id number] ? Procedure: ? Colonoscopy Indications: ? Rectal [...] preparation was evaluated ? using the BBPS ([place] Bowel ? Preparation Scale) with scores of: [...] 08/30/2023 10:5 7 AM EST Yoel Artis BLOWER INSULATOR GENERAL SURGICAL ORD ERABLES PROVATION from Last 3 Months or Most Recently Relevant to Health Maintenance Advance Directives * Attempt Cardiopulmonary Resuscitation - Inpatient (Latest Code Status on File) Date Activated Date Inactivated Comments 07/29/2024 2:01 PM 08/04/2024 7:34 PM Question Answer Comments Code Status decision made by: Patient Content of discussion: pre-arrest limitations Care Teams Gravity Prospecting Supervisor Relationship Specialty Start Date End Date Alexia Mtz APRN [address] [place] [id number] PCP - General Family Medicine 07/30/24
--- OUTSIDE RECORDS SUMMARY | 2024-09-07 11:09 | XMS_ITS | Encounter Summary ---
Author Organization [facility] Address [facility] [place] [address] Care Team Providers Care Pharmaceutical Salesperson Name Role Phone [place] shell Shun ALCALA Primary Care Provider [phone] Reason for Referral * Consultation (Routine) - Authorized Specialty Diagnoses / Procedures Referred By Contac t Referred To Contact Cardiology Diagnoses HFrEF (heart failure with reduced ejection fraction) [facility]INIC S/P D/C acute HFrEF Alex Small MD [facility] [place] [address] Mushtaq Murphy APRN [facility] [place] [address] Referral ID Status Reason Start Date Expiration Date Visits Requested Visits Authorized [id number] Authorized Consult, Test & Treat 08/04/2024 08/04/2025 1 1 * Consultation (Routine) - Authorized Specialty Diagnoses / Procedures Referred By Contac t Referred To Contact Cardiology Diagnoses ST elevation myocardial infarction involving left anterior descending (LAD) coronary artery Yrn Ward MD [facility] [place] [address] Cardiac Rehab, [address] [place] [address] Referral ID Status Reason Start Date Expiration Date Visits Requested Visits Authorized [id number] Authorized Consult, Test & Treat 08/04/2024 01/31/2025 36 36 Reason for Visit * Auth/Cert (Routine) Specialty Diagnoses / Procedures Referred By Contac t Referred To Contact Diagnoses STEMI (ST elevation myocardial infarction) STEMI Procedures ER IPI Vahe Marvin MD [facility] [place] [address] [place] [address] [facility] Referral ID Status Reason Start Date Expiration Date Visits Re quested Visits Authorized [id number] 1 1 Encounter Details Date Type Department Care Team (Latest Contact Info) Description 07/29/2024 11:45 AM EST - 08/04/2024 5:00 PM EST Hospital Encounter Cardiovascular [place] [phone] Vahe Marvin MD [facility] [place] [address] [place] [address] Jay Silverio MD [facility] [place] [address] Krystal Parker MD [facility] [place] [address] Bridgette Stauffer MD [facility] [place] [address] Yrn Ward MD [facility] [place] [address] Alex Small MD [facility] [place] [address] ST elevation myocardial infarction involving left anterior descending (LAD) coronary artery; HFrEF (heart failure with reduced ejection fraction) Discharge Disposition: Home Social History Tobacco Use Types Packs/Day Years Used Date Smoking Tobacco: Former Cigarettes Smokeless Tobacco: Never Alcohol Use Standard Drinks/Week Comments Not Currently 0 (1 standard drink = 0.6 oz pur e alcohol) [facility] Utilities Answer Date Recorded In the [...] any time in the past 12 m [facility], were you homeless or living in [...] Korey Montoya Patient Age: 74 y.o. Language: Greek Race: White Ethnicity: Not nor Admit date: [...] please contact your inpatient physician through the [facility] Chain Sales Representative . Issues afterhours and on weekends will [...] EKG. Patient transferred via air ambulance to [facility] on 07/29 for LHC and LOW to [...] EKG. Was transferred via air ambulance to [facility] for further management and LHC demonstrated 100% [...] the next year. Access was via right BUSINESS INTERN and this sitewas clean, dry and intact on the day of discharge. The patient???s medications at discharge include: aspirin, statin, beta elivs, STELLA inhibitor, Plavix and PRN nitroglycerin. # [...] for Chest pain. Replaces: nitroGLYcerin 400 mcg/spray Marcell, Non-Aerosol 0.4 mg Quantity: 90 tablet Refills: [...] Refills: 0 STOPPED Medications nitroGLYcerin 400 mcg/spray Marcell, Non-Aerosol Commonly known as: NITROLINGUAL Replaced by: [...] of one year. After this time, your getter filler will determine if you need to continue [...] away. Stay on the phone. The emergency precipitator operator will tell you what to do. [...] appointments: During 8am-5pm Tuesday through Tuesday call [phone] to speak with a nurse in the cardiology clinic All other times call [phone] and ask to speak to the gizzard peeler national opelint analyst. Follow up Appointments: PCP Alexia Mtz, PRE BILLING SPECIALIST [phone]. Please call to establish a follow up appointment within 1-2 weeks of discharge. Cardiology. Referral to heart failure has been sent. General Instructions None Future Appointments and Orders Future Orders Complete By Expires Referral to Cardiac Rehab [[id number] Custom] As directed Process Instructions: If no [...] of one year. After this time, your getter filler will determine if you need to continue [...] away. Stay on the phone. The emergency precipitator operator will tell you what to do. [...] appointments: During 8am-5pm Tuesday through Tuesday call [phone] to speak with a nurse in the cardiology clinic All other times call [phone] and ask to speak to the gizzard peeler national opelint analyst. Follow up Appointments: PCP Alexia Mtz, PRE BILLING SPECIALIST [phone]. Please call to establish a follow up [...] EKG. Patient transferred via air ambulance to [facility] on 07/29 for LHC and LOW to [facility] for 100% occlusion Social History: Pt lives with his in a 1 level home with 2 NAOMI. 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 He [...] Total time: 35 (tef) minutes Time IN/OUT: [id number] ZAIDA DUBOSE PT Pager: [phone] Physical Therapy Inpatient Rehabilitation Department * Yrn Ward MD - 08/03/2024 10:38 AM EST CV HOSPITALIST 2 - [facility] DAILY PROGRESS NOTE Page [phone] to reach a provider 04/04 Admit Date: [...] Compared to the overnight study by the national opelint analyst fellow the impella position is stable. 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 [facility] 07/29/24 Conclusions: * One vessel coronary artery disease (LAD) * Mild pulmonary hypertension * Elevated pulmonary capillary wedge pressure * Successful stent insertion of the proximal LAD lesion * See Dual Antiplatelet (DAPT) Recommendations above * Successful impella placement for cardiogenic shock. Telemetry: I have personally reviewed and interpreted the telemetry from the last 24 hours. [facility] Assessment: ASSESSMENT: Korey Montoya is a 74 y.o. male w/ PMH of hypertension, HLD, and BPH who presents for chief concern of chest pain after being found to have ST elevations on EKG. Patient transferred via air ambulance to [facility] on 07/29 for LHC and LOW to [...] be determined OT: PCP Alexia Mtz, FREDRICK [phone] * Zaida Dubose, PT - 08/02/2024 2:08 PM EST Physical Therapy Evaluation Patient profile: Korey Montoya is a 74 y.o. male w/ PMH of hypertension, HLD, and BPH who presents for chief concern of chest pain after being found to have ST elevations on EKG. Patient transferred via air ambulance to [facility] on 07/29 for LHC and LOW to LAD for 100% occlusion Social History: Pt lives with his in a 1 level home with 2 NAOMI. 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 He [...] Total time: 37 (eval) minutes Time IN/OUT: 0631-8290 ZAIDA DUBOSE PT Pager: [phone] Physical Therapy Inpatient Rehabilitation Department * Gagan [...] EKG. Patient transferred via air ambulance to [facility] on 07/29 for LHC and LOW to [...] organfailure/deterioration? No Gagan Catherine MD 08/02/2024 * Krysatl Parker MD - 08/02/2024 6:43 AM EST Images from the original note were not included. Cardiology ICU Progress Note Patient info: Name: Korey Montoya : 1950 PCP: Alexia Mtz APRN PCP phone number: [phone] Date of Admission: 07/29/2024 ( Hospital Day 4 days ) Attending:Bridgette Stauffer MD ID: Korey Montoya is a 74 y.o. male w/ PMH of hypertension, HLD, and BPH on Hospital Day4 for chief concern of chest pain after being found to have ST elevations on EKG. Patient transferred via air ambulance to [facility] on 07/29 for LHC and LOW to [...] 07/29/24 1621 PHART 7.48* 7.44 7.38 7.37 JHO2ACR 29* 29* 34* 36 PO2ART 71* 109* 141* 71* KES4HTJ 20.6 19.4* 19.5* 20.4 VBG (Venous Blood Gas) Recent Labs 07/29/24 1401 PHVEN 7.30* PO2VEN 39 ITE5GBV 20.1* Mixed Venous Sat No results for input(s): F8BCMW0 in the last 168 hours. Objective: Vitals [...] 07/29/24 1621 PHART 7.48* 7.44 7.38 7.37 JHL1BGA 29* 29* 34* 36 PO2ART 71* 109* 141* 71* GJD8VFF 20.6 19.4* 19.5* 20.4 VBG (Venous Blood Gas) Recent Labs 07/29/24 1401 PHVEN 7.30* PO2VEN 39 GSS8UFQ 20.1* Mixed Venous Sat No results for input(s): R5CAQP1 in the last 168 hours. Microbiology: Microbiology Results (Last 30 days) Procedure Component Value Units Date/Time Blood culture [[id number]] Collected: 07/29/241607 Lab Status: Preliminary result Specimen: Blood, Venous Updated: 08/01/241700 Blood Culture No growth at 72 hours Blood culture [[id number]] Collected: 07/29/241607 Lab Status: Preliminary result Specimen: Blood, Venous Updated: 08/01/241700 Blood Culture No growth at 72 hours Imaging: Results for orders placed or performed during the hospital encounter of 07/29/24 XR Chest One View (Exam End: 07/29/2024 2:30 PM) Result Value WORKSTATION ID [id number] Impression 1. No pulmonary edema. 2. No pleural effusion. 3. No pneumothorax. Thank you for letting us participate in the care of this patient. If you are a health care provider and have any questions regarding this report, please contact the number below. For patients who have questions please contact the health live in caregiver that requested your imaging first. ( 07/30/24) [...] Compared to the overnight study by the national opelint analyst fellow the impella position is stable. The [...] EKG. Patient transferred via air ambulance to [facility] on 07/29 for LHC and LOW to [...] Transfer to floor. Krystal Parker, MD, [facility], [facility] Staff Web Specialist cook helper preserves * Gagan Catherine MD - 08/01/2024 11:12 [...] EKG. Patient transferred via air ambulance to [facility] on 07/29 for LHC and LOW to [...] PCP: Alexia Mtz APRN PCP phone number: [phone] Date of Admission: 07/29/2024 ( Hospital Day 3 days ) Attending:Krystal Parker MD ID: Korey Montoya is a 74 y.o. male w/ PMH of hypertension, HLD, and BPH on Hospital Day3 for chief concern of chest pain after being found to have ST elevations on EKG. Patient transferred via air ambulance to [facility] on 07/29 for LHC and LOW to [...] 07/29/24 1621 PHART 7.48* 7.44 7.38 7.37 LGD2DIB 29* 29* 34* 36 PO2ART 71* 109* 141* 71* UTF0ZUX 20.6 19.4* 19.5* 20.4 VBG (Venous Blood Gas) Recent Labs 07/29/24 1401 PHVEN 7.30* PO2VEN 39 JMZ0VPJ 20.1* Mixed Venous Sat No results for input(s): Y6NKHM9 in the last 168 hours. PA Catheter [...] 07/29/24 1621 PHART 7.48* 7.44 7.38 7.37 IBI9JQF 29* 29* 34* 36 PO2ART 71* 109* 141* 71* FCI8KBU 20.6 19.4* 19.5* 20.4 VBG (Venous Blood Gas) Recent Labs 07/29/24 1401 PHVEN 7.30* PO2VEN 39 GRK9ZZD 20.1* Mixed Venous Sat No results for input(s): M2SLGY1 in the last 168 hours. Microbiology: Microbiology Results (Last 30 days) Procedure Component Value Units Date/Time Blood culture [[id number]] Collected: 07/29/241607 Lab Status: Preliminary result Specimen: Blood, Venous Updated: 07/31/241700 Blood Culture No growth at 48 hours Blood culture [[id number]] Collected: 07/29/241607 Lab Status: Preliminary result Specimen: Blood, Venous Updated: 07/31/241700 Blood Culture No growth at 48 hours Imaging: Results for orders placed or performed during the hospital encounter of 07/29/24 XR Chest One View (Exam End: 07/29/2024 2:30 PM) Result Value WORKSTATION ID [id number] Impression 1. No pulmonary edema. 2. No pleural effusion. 3. No pneumothorax. Thank you for letting us participate in the care of this patient. If you are a health care provider and have any questions regarding this report, please contact the number below. For patients who have questions please contact the health live in caregiver that requested your imaging first. ( 07/30/24) [...] Compared to the overnight study by the national opelint analyst fellow the impella position is stable. The [...] EKG. Patient transferred via air ambulance to [facility] on 07/29 for LHC and LOW to [...] him; questions answered. Krystal Parker MD, [facility], [facility] Staff Web Specialist cook helper preserves * Krystal Parker MD - 07/31/2024 1:06 [...] EKG. Patient transferred via air ambulance to [facility] on 07/29 for LHC and LOW to [...] PCP: Alexia Mtz APRN PCP phone number: [phone] Date of Admission: 07/29/2024 ( Hospital Day 2 days ) Attending:Krystal Parker MD ID: Korey Montoya is a 74 y.o. male w/ PMH of hypertension, HLD, and BPH on Hospital Day2 for chief concern of chest pain after being found to have ST elevations on EKG. Patient transferred via air ambulance to [facility] on 07/29 for LHC and LOW to [...] 0057 07/29/24 1621 PHART 7.44 7.38 7.37 PQM4OIV 29* 34* 36 PO2ART 109* 141* 71* KAM0NKD 19.4* 19.5* 20.4 VBG (Venous Blood Gas) Recent Labs 07/29/24 1401 PHVEN 7.30* PO2VEN 39 BBP3NFA 20.1* Mixed Venous Sat No results for input(s): U8OSWP2 in the last 168 hours. PA Catheter [...] 0057 07/29/24 1621 PHART 7.44 7.38 7.37 WJT6JQS 29* 34* 36 PO2ART 109* 141* 71* CXZ3EMT 19.4* 19.5* 20.4 VBG (Venous Blood Gas) Recent Labs 07/29/24 1401 PHVEN 7.30* PO2VEN 39 ZGX3ZYN 20.1* Mixed Venous Sat No results for input(s): R1QNTD6 in the last 168 hours. Microbiology: Microbiology Results (Last 30 days) Procedure Component Value Units Date/Time Blood culture [[id number]] Collected: 07/29/241607 Lab Status: Preliminary result Specimen: Blood, Venous Updated: 07/30/24 170 Blood Culture No Growth at 18-24 hrs. Blood culture [[id number]] Collected: 07/29/241607 Lab Status: Preliminary result Specimen: Blood, Venous Updated: 07/30/241700 Blood Culture No Growth at 18-24 hrs. Imaging: Results for orders placed or performed during the hospital encounter of 07/29/24 XR Chest One View (Exam End: 07/29/2024 2:30 PM) Result Value WORKSTATION ID [id number] Impression 1. No pulmonary edema. 2. No pleural effusion. 3. No pneumothorax. Thank you for letting us participate in the care of this patient. If you are a health care provider and have any questions regarding this report, please contact the number below. For patients who have questions please contact the health live in caregiver that requested your imaging first. ( 07/30/24) [...] Compared to the overnight study by the national opelint analyst fellow the impella position is stable. The [...] EKG. Patient transferred via air ambulance to [facility] on 07/29 for LHC and LOW to [...] work to optimize volume status while continuing yipvqrk-jutncs-sdnmavljxe therapies at this time. Obtain comprehensive TTE. [...] EKG. Patient transferred via air ambulance to [facility] on 07/29 for LHC and LOW to [...] PCP: Yoel Artis APRN PCP phone number: [phone] Date of Admission: 07/29/2024 ( Hospital Day 1 day ) Attending:Jay Silverio MD ID: Korey Montoya is a 74 y.o. male w/ PMH of hypertension, HLD, and BPH on Hospital Day1 for chief concern of chest pain after being found to have ST elevations on EKG. Patient transferred via air ambulance to [facility] on 07/29 for LHC and LOW to [...] 0057 07/29/24 1621 PHART 7.44 7.38 7.37 LIS8ZXM 29* 34* 36 PO2ART 109* 141* 71* CEL9PGY 19.4* 19.5* 20.4 VBG (Venous Blood Gas) Recent Labs 07/29/24 1401 PHVEN 7.30* PO2VEN 39 ZJR6ZPM 20.1* Lactate ( Last 12 hours) 1.3 >> 1.2 Mixed Venous Sat No results for input(s): O8IWOT7 in the last 168 hours. PA Catheter [...] 0057 07/29/24 1621 PHART 7.44 7.38 7.37 BAZ3GCI 29* 34* 36 PO2ART 109* 141* 71* HRS4RKT 19.4* 19.5* 20.4 VBG (Venous Blood Gas) Recent Labs 07/29/24 1401 PHVEN 7.30* PO2VEN 39 SJS9BDN 20.1* Mixed Venous Sat No results for input(s): G2USOU1 in the last 168 hours. Microbiology: Microbiology Results (Last 30 days) Procedure Component Value Units Date/Time Blood culture [[id number]] Collected: 07/29/24 1608 Lab Status: In process Specimen: Blood, Venous Updated: 07/29/24 162 Blood culture [[id number]] Collected: 07/29/241607 Lab Status: In process Specimen: Blood, Venous Updated: 07/29/24 161 Imaging: Results for orders placed or performed during the hospital encounter of 07/29/24 XR Chest One View (Exam End: 07/29/2024 2:30 PM) Result Value WORKSTATION ID [id number] Impression 1. No pulmonary edema. 2. No pleural effusion. 3. No pneumothorax. Thank you for letting us participate in the care of this patient. If you are a health care provider and have any questions regarding this report, please contact the number below. For patients who have questions please contact the health live in caregiver that requested your imaging first. Medications [...] EKG. Patient transferred via air ambulance to [facility] on 07/29 for LHC and LOW to [...] EKG. Patient transferred via air ambulance to [facility] on 07/29 for LHC and LOW to [...] EKG. Was transferred via air ambulance to [facility] for further management and [facility] demo nstrated 100% occlusion. No significant [...] performed by Brandan Mcgovern MD [facility] ENDOSCOPY Significant Family History: Family History Problem [...] mouth. Past Week nitroGLYcerin (NITROLINGUAL) 400 mcg/spray Marcell, Non-Aerosol 1 spray to anus for proctalgia [...] 3.5 guiding catheter and a 3.[address] 20 Mhz using Manual pullback. Imaging [...] priority for the procedure was Emergent. [facility] STEMI-Immediate [...] atmospheres. A premounted 3.00 x 22 mm Ellsworth [place]ham (LOW) was deployed with a maximum inflation [...] A premounted 3.00 x 08 mm Jeison [place]ersham (LOW) was deployed with a maximum inflation [...] a limited study performed by a fellow national opelint analyst to evaluate for cardiogenic shock with impella [...] Compared to the overnight study by the national opelint analyst fellow the impella position is stable. The [...] EKG. Patient transferred via air ambulance to [facility] on 07/29 for LHC and LOW to [...] PCP: Yoel Artis APRN PCP phone number: [phone] Date of Admission: 07/29/2024 ( Hospital Day 0 days ) Attending:Jay Silverio MD ID: Korey Montoya is a 74 y.o. male w/ PMH of hypertension, HLD, and BPH who presents for chief concern of chest pain after being found to have ST elevations on EKG. Patient transferred via air ambulance to [facility] on 07/29 for LHC and LOW to LAD for 100% occlusion. HPI: Korey Montoya is a 74 y.o. male w/ PMH of hypertension, HLD, and BPH who presents for chief concern of chest pain after being found to have ST elevations on EKG. Patient transferred via air ambulance to [facility] on 07/29 for LHC and LOW to [...] EKG. Was transferred via air ambulance to [facility] for further management and LHC demonstrated 100% [...] performed by Brandan Mcgovern MD [facility] ENDOSCOPY Family History Family History Problem Relation [...] Blood Gas) No results for input(s): PHART, UHY0FCG, PO2ART, KTZ6PJF, LACTATEVEN, FVR2CXS, PFRATIOART2 in the last 168 hours. VBG (Venous Blood Gas) Recent Labs 07/29/24 1401 PHVEN 7.30* PO2VEN 39 ISN4ECX 20.1* Mixed Venous Sat No results for input(s): C4JJTC7 in the last 168 hours. PA Catheter [...] Blood Gas) No results for input(s): PHART, PMA6CTY, PO2ART, EKY2GAF, LACTATEVEN, XQS0BDW, PFRATIOART2 in the last 168 hours. VBG (Venous Blood Gas) Recent Labs 07/29/24 1401 PHVEN 7.30* PO2VEN 39 ZIU4OIN 20.1* Mixed Venous Sat No results for input(s): H7EMIA2 in the last 168 hours. Microbiology: Microbiology [...] EKG. Patient transferred via air ambulance to [facility] on 07/29 for LHC. Found to have [...] FACC Section of Cardiovascular Medicine [facility] Snuff Box Finishersmall engine technician [facility] [employer] [facility] This patient meets or has met [...] to the planned procedure. Hand Hygiene: The day guard did perform hand hygiene prior to arterial [...] ease. Good wave form. Ivan Hernandez MD Deputy Fire Marshal Associated attestation - Rolando Yeh MD - [...] of Discharge: 08/04/2024 Gaby Wong RN, CM [phone] * Initial Assessments - Char Meza OT - 08/03/2024 10:00 AM EST Occupational Therapy Evaluation Patient profile: Korey Montoya is a 74 y.o. male admitted on 07/29/2024 w/ PMH of hypertension, HLD, and BPH who presents for chief concern of chest pain after being found to have ST elevations onEKG. Patient transferred via air ambulance to [facility] on 07/29 for LHC and LOW to LAD for 100% occlusion. Past Medical History: Diagnosis Date ADHD HLD (hyperlipidemia) HTN (hypertension) Tremor Past Surgical History: Procedure Laterality Date HAND SURGERY PRO COLONOSCOPY, REMV LESN, SNARE N/A 08/30/2023 COLONOSCOPY, POLYPECTOMY, REMOVAL LESION BY SNARE (WRVU 4.57) performed by Brandan Mcgovern MD [facility] ENDOSCOPY Social History: Patient lives with his [...] evaluation only Total Minutes, Occupational Therapy: 14 (1743-0146 (evaluation)) 2017 OT Evaluation Code Rationale: Diagnosis [...] and measurable assessment of functional outcome. Pager: [phone] Char Meza OT 08/03/2024 Occupational Therapy Rehabilitation [...] Procedure Note: Patient Name: Korey Montoya : [id number] MR#: [id number] Case Date: 07/31/2024 Chain Sales Representative: Surgeons and Role: * Maldonado Luis MD - Primary * Quinten Charles PA - Physician Form Tamping Machine Operator Preoperative diagnosis: shock, impella Postoperative diagnosis: * same * Procedure(s) performed: Impella removal form right BUSINESS INTERN Access: Right BUSINESS INTERN A time-out was conducted prior to the [...] surrogate would be surrogate decision maker per [place] surrogate decision making law. (Only good for 180 days) Any patient receiving care in [place] must abide by [place] law. The hierarchy for surrogate decision making [...] (i) The agent with financial power of document review attorney or a conservator appointed in accordance [...] In the past 12 months has the [employer], gas, oil, or water Urban Gentleman threatened to shut off services in your [...] [facility] [address] [place] [address] Physical Address: [address] [place], [place] Social & Family Supports: All names [...] points: Addiction likely Health/Prescription Coverage: Primary Insurance: [facility] [employer] MEDICARE Payor: [facility] [employer] MEDICARE / Plan: [facility] [employer] MEDICARE COMPLETE / Product Type: *No Product type* / Secondary Insurance: N/A ; Prescription Coverage: Yes Preferred Pharmacy: [address] [address] [place] Status: Patient is a : No Primary Care Provider confirmed: Alexia Mtz, FREDRICK [phone] Patient/Caregiver Goals of Treatment: return home Potential [...] 07/29/2024 6:25 PM EST Pt arrived from laboratory mechanical technician @ 1400. CXR and EKG completed. [...] Procedure Note: Patient Name: Korey Montoya : [id number] MR#: [id number] Case Date: 07/29/2024 Chain Sales Representative: Surgeons and Role: * Vahe Marvin MD - Primary * Susannah Watts PA - Physician Form Tamping Machine Operator Preoperative diagnosis: STEMI Postoperative diagnosis: * STEMI, LAD Artery * * Cardiogenic Shock * Procedure(s) performed: [facility] Coronary angiogram Stent insertion coronary IVUS coronary Venous line insert RH [place] Colette Catheter Vascular closure device Ventricular assist [...] x 22 mm to 14 deonna JEISON [place] with LIZ 3 flow. Residual distal disease at distal stent, overlapping distal stent was inserted with 3.0 x 8 mm JEISON [place]. Systolic's in the 80's sustained. Patient re [...] 10:00 AM EST Office Visit Cardiology at [address] [phone] Mushtaq Murphy, PRE BILLING SPECIALIST Scheduled Orders Name Type Priority Associated Diagnoses [...] CBC (with Diff) (08/04/2024 6:08 AM EST) [facility] White Blood Cell 7.27 4.00 - 9.50 x10(3)/mc L 08/04/2024 6:39 AM [facility] Red Blood Cell 4.28(L) 4.58 - 5.54 x10(6)/mc L 08/04/2024 6:39 AM [facility] Hemoglobin 11.6(L) 13.7 - 16.5 g/dL 08/04/2024 6:39 AM [facility] Hematocrit 34.8(L) 40.5 - 48.5 % 08/04/2024 6:39 AM [facility] Mean Cell Volume 81.3(L) 82.9 - 93.1 fL 08/04/2024 6:39 AM [facility] Mean Cell Hemoglobin 27.1(L) 27.5 - 32.1 pg 08/04/2024 6:39 AM [facility] Mean Cell Hemoglobin Concentration 33.3 32.0 - 35.7 g/dL 08/04/2024 6:39 AM [facility] Platelet 178 145 - 357 x10(3)/mc L 08/04/2024 6:39 AM [facility] Mean Platelet Volume 10.6 7.6 - 12.9 fL 08/04/2024 6:39 AM [facility] RDW Standard Deviation 42.0 36.0 - 45.0 fL 08/04/2024 6:39 AM [facility] RDW coefficient of variation 14.3(H) 11.4 - 13.8 % 08/04/2024 6:39 AM [facility] NRBC% auto 0.0 % 08/04/2024 6:39 AM [facility] NRBC Absolute <0.01 <0.01 x10(3)/mc L 08/04/2024 6:39 AM [facility] Neutrophil % 72.1 % 08/04/2024 6:39 AM [facility] Neutrophil Absolute (ANC) - Automated 5.24 1.70 - 6.10 x10(3)/mc L 08/04/2024 6:39 AM [facility] Lymph % 16.8 % 08/04/2024 6:39 AM [facility] Lymph Absolute 1.22 0.90 - 3.20 x10(3)/mc L 08/04/2024 6:39 AM [facility] Monocyte % 8.5 % 08/04/2024 6:39 AM [facility] Monocyte Absolute 0.62 0.30 - 0.90 x10(3)/mc L 08/04/2024 6:39 AM [facility] Eos % 1.9 % 08/04/2024 6:39 AM [facility] Eos Absolute 0.14 0.00 - 0.40 x10(3)/mc L 08/04/2024 6:39 AM [facility] Basophil % 0.4 % 08/04/2024 6:39 AM [facility] Baso Absolute <0.04 0.00 - 0.10 x10(3)/mc L 08/04/2024 6:39 AM [facility] Immature Gran % 0.3 % 6:39 AM [facility] Immature Gran Absolute <0.04 0.00 - 0.04 x10(3)/mc L 08/04/2024 6:39 AM [facility] Blood VENOUS BLOOD SPECIMEN / Unknown Venipuncture / Unknown 08/04/2024 6:08 AM EST 08/04/2024 6:19 AM EST Bridgette Stauffer MD HEMATOLOGY ORDERABLE S [facility] [place] [address] * Magnesium (08/04/2024 6:08 AM EST) Magnesium 0.85 0.69 - 1.07 mMol/L 08/04/2024 7:07 AM [facility] Blood VENOUS BLOOD SPECIMEN / Unknown Venipuncture / Unknown 08/04/2024 6:08 AM EST 08/04/2024 6:19 AM EST Bridgette Stauffer MD CHEMISTRY ORDERABLES [facility] [place] [address] * Basic Metabolic Panel (08/04/2024 6:08 AM EST) Glucose 93 65 - 199 mg/dL 08/04/2024 7:07 AM [facility] Comment:Glucose Concentratio n >=200 mg/dL plus symptoms is consistent with Diabetes Mellitus. Blood Urea Nitrogen 14 10 - 20 mg/dL 08/04/2024 7:07 AM [facility] Creatinine 1.07 0.80 - 1.50 mg/dL 08/04/2024 7:07 AM [facility] Sodium 138 135 - 145 mMol/L 08/04/2024 7:07 AM [facility] Potassium 4.3 3.5 - 5.0 mMol/L 08/04/2024 7:07 AM [facility] Chloride 107 98 - 107 mMol/L 08/04/2024 7:07 AM [facility] Carbon Dioxide 23 22 - 31 mMol/L 08/04/2024 7:07 AM [facility] Anion Gap 8 5 - 15 mMol/L 08/04/2024 7:07 AM [facility] Calcium 8.5 8.5 - 10.5 mg/dL 08/04/2024 7:07 AM [facility] Est Glomerular Filtration Rate - Male 74 mL/min/1. 73 m?? 08/04/2024 7:07 AM [facility] Comment: This patient's estimated [...] AM EST Bridgette Stauffer MD CHEMISTRY ORDERABLES [facility] [place] [address] * (ABNORMAL) CBC (with Diff) (08/03/2024 5:16 AM EST) White Blood Cell 7.85 4.00 - 9.50 x10(3)/mc L 08/03/2024 5:29 AM [facility] Red Blood Cell 4.43(L) 4.58 - 5.54 x10(6)/mc L 08/03/2024 5:29 AM [facility] Hemoglobin 11.8(L) 13.7 - 16.5 g/dL 08/03/2024 5:29 AM [facility] Hematocrit 35.9(L) 40.5 - 48.5 % 08/03/2024 5:29 AM [facility] Mean Cell Volume 81.0(L) 82.9 - 93.1 fL 08/03/2024 5:29 AM [facility] Mean Cell Hemoglobin 26.6(L) 27.5 - 32.1 pg 08/03/2024 5:29 AM [facility] Mean Cell Hemoglobin Concentration 32.9 32.0 - 35.7 g/dL 08/03/2024 5:29 AM [facility] Platelet 142(L) 145 - 357 x10(3)/mc L 08/03/2024 5:29 AM [facility] Mean Platelet Volume 10.5 7.6 - 12.9 fL 08/03/2024 5:29 AM [facility] RDW Standard Deviation 42.5 36.0 - 45.0 fL 08/03/2024 5:29 AM [facility] RDW coefficient of variation 14.2(H) 11.4 - 13.8 % 08/03/2024 5:29 AM [facility] NRBC% auto 0.0 % 08/03/2024 5:29 AM [facility] NRBC Absolute <0.01 <0.01 x10(3)/mc L 08/03/2024 5:29 AM [facility] Neutrophil % 75.2 % 08/03/2024 5:29 AM [facility] Neutrophil Absolute (ANC) - Automated 5.91 1.70 - 6.10 x10(3)/mc L 08/03/2024 5:29 AM [facility] Lymph % 13.4 % 08/03/2024 5:29 AM [facility] Lymph Absolute 1.05 0.90 - 3.20 x10(3)/mc L 08/03/2024 5:29 AM [facility] Monocyte % 9.0 % 08/03/2024 5:29 AM [facility] Monocyte Absolute 0.71 0.30 - 0.90 x10(3)/mc L 08/03/2024 5:29 AM [facility] Eos % 1.7 % 08/03/2024 5:29 AM [facility] Eos Absolute 0.13 0.00 - 0.40 x10(3)/mc L 08/03/2024 5:29 AM [facility] Basophil % 0.4 % 08/03/2024 5:29 AM [facility] Baso Absolute <0.04 0.00 - 0.10 x10(3)/mc L 08/03/2024 5:29 AM [facility] Immature Gran % 0.3 % 5:29 AM [facility] Immature Gran Absolute <0.04 0.00 - 0.04 x10(3)/mc L 08/03/2024 5:29 AM [facility] Blood VENOUS BLOOD SPECIMEN / Unknown Venipuncture / Unknown 08/03/2024 5:16 AM EST 08/03/2024 5:23 AM EST Bridgette Stauffer MD HEMATOLOGY ORDERABLE S [facility] [place] [address] * Magnesium (08/03/2024 5:16 AM EST) Magnesium 0.89 0.69 - 1.07 mMol/L 08/03/2024 5:56 AM [facility] Blood VENOUS BLOOD SPECIMEN / Unknown Venipuncture / Unknown 08/03/2024 5:16 AM EST 08/03/2024 5:23 AM EST Bridgette Stauffer MD CHEMISTRY ORDERABLES [facility] [place] [address] * (ABNORMAL) Basic Metabolic Panel (08/03/2024 5:16 AM EST) Glucose 98 65 - 199 mg/dL 08/03/2024 5:56 AM [facility] Comment:Glucose Concentratio n >=200 mg/dL plus symptoms is consistent with Diabetes Mellitus. Blood Urea Nitrogen 16 10 - 20 mg/dL 08/03/2024 5:56 AM [facility] Creatinine 0.85 0.80 - 1.50 mg/dL 08/03/2024 5:56 AM [facility] Sodium 137 135 - 145 mMol/L 08/03/2024 5:56 AM EST [facility] Potassium 4.5 3.5 - 5.0 mMol/L 08/03/2024 5:56 AM [facility] Chloride 106 98 - 107 mMol/L 08/03/2024 5:56 AM [facility] Carbon Dioxide 21(L) 22 - 31 mMol/L 08/03/2024 5:56 AM [facility] Anion Gap 10 5 - 15 mMol/L 08/03/2024 5:56 AM EST [facility] Calcium 8.3(L) 8.5 - 10.5 mg/dL 08/03/2024 5:56 AM [facility] Est Glomerular Filtration Rate - Male 92 mL/min/1. 73 m?? 08/03/2024 5:56 AM [facility] Comment: This patient's estimated [...] Stauffer MD CHEMISTRY ORDERABLES Performing Organization Address [facility]/ZIP Co de Phone Number [facility] [place] [address] * POC, GLUCOSE (08/02/2024 7:47 AM EST) Glucometer, POC 89 65 - 199 mg/dL 08/02/2024 7:47 AM EST [facility] Comment:Supplemental ranges: <140 mg/dL before meals <180 mg/dL all other times of the day. Blood CAPILLARY BLOOD / Unknown 08/02/2024 7:47 AM EST 08/02/2024 7:47 AM EST Krystal Parker MD POINT OF CARE TEST O RDERABLES Performing Organization Address [facility] Co de Phone Number [facility] [place] [address] * (ABNORMAL) CBC (with Diff) (08/02/2024 4:20 AM EST) White Blood Cell 8.51 4.00 - 9.50 x10(3)/mc L 08/02/2024 4:50 AM EST [facility] Red Blood Cell 4.41(L) 4.58 - 5.54 x10(6)/mc L 08/02/2024 4:50 AM EST [facility] Hemoglobin 12.2(L) 13.7 - 16.5 g/dL 08/02/2024 4:50 AM EST [facility] Hematocrit 35.8(L) 40.5 - 48.5 % 08/02/2024 4:50 AM [facility] Mean Cell Volume 81.2(L) 82.9 - 93.1 fL 08/02/2024 4:50 AM [facility] Mean Cell Hemoglobin 27.7 27.5 - 32.1 pg 08/02/2024 4:50 AM [facility] Mean Cell Hemoglobin Concentration 34.1 32.0 - 35.7 g/dL 08/02/2024 4:50 AM [facility] Platelet 111(L) 145 - 357 x10(3)/mc L 08/02/2024 4:50 AM [facility] Mean Platelet Volume 11.1 7.6 - 12.9 fL 08/02/2024 4:50 AM [facility] RDW Standard Deviation 41.9 36.0 - 45.0 fL 08/02/2024 4:50 AM [facility] RDW coefficient of variation 14.1(H) 11.4 - 13.8 % 08/02/2024 4:50 AM [facility] NRBC% auto 0.0 % 08/02/2024 4:50 AM [facility] NRBC Absolute <0.01 <0.01 x10(3)/mc L 08/02/2024 4:50 AM [facility] Neutrophil % 77.7 % 08/02/2024 4:50 AM [facility] Neutrophil Absolute (ANC) - Automated 6.62(H) 1.70 - 6.10 x10(3)/mc L 08/02/2024 4:50 AM [facility] Lymph % 11.9 % 08/02/2024 4:50 AM [facility] Lymph Absolute 1.01 0.90 - 3.20 x10(3)/mc L 08/02/2024 4:50 AM [facility] Monocyte % 8.2 % 08/02/2024 4:50 AM [facility] Monocyte Absolute 0.70 0.30 - 0.90 x10(3)/mc L 08/02/2024 4:50 AM [facility] Eos % 1.4 % 08/02/2024 4:50 AM [facility] Eos Absolute 0.12 0.00 - 0.40 x10(3)/mc L 08/02/2024 4:50 AM [facility] Basophil % 0.4 % 08/02/2024 4:50 AM [facility] Baso Absolute <0.04 0.00 - 0.10 x10(3)/mc L 08/02/2024 4:50 AM [facility] Immature Gran % 0.4 % 4:50 AM [facility] Immature Gran Absolute <0.04 0.00 - 0.04 x10(3)/mc L 08/02/2024 4:50 AM [facility] Blood VENOUS BLOOD SPECIMEN / Unknown Venipuncture / Unknown 08/02/2024 4:20 AM EST 08/02/2024 4:37 AM EST Bridgette Stauffer MD HEMATOLOGY ORDERABLE S [facility] [place] [address] * Magnesium (08/02/2024 4:20 AM EST) Magnesium 0.79 0.69 - 1.07 mMol/L 08/02/2024 5:06 AM EST [facility] Blood VENOUS BLOOD SPECIMEN / Unknown Venipuncture / Unknown 08/02/2024 4:20 AM EST 08/02/2024 4:37 AM EST Bridgette Stauffer MD CHEMISTRY ORDERABLES [facility] [place] [address] * (ABNORMAL) Basic Metabolic Panel (08/02/2024 4:20 AM EST) Glucose 110 65 - 199 mg/dL 08/02/2024 5:06 AM [facility] Comment:Glucose Concentratio n >=200 mg/dL plus symptoms is consistent with Diabetes Mellitus. Blood Urea Nitrogen 12 10 - 20 mg/dL 08/02/2024 5:06 AM [facility] Creatinine 0.90 0.80 - 1.50 mg/dL 08/02/2024 5:06 AM [facility] Sodium 139 135 - 145 mMol/L 08/02/2024 5:06 AM [facility] Potassium 4.0 3.5 - 5.0 mMol/L 08/02/2024 5:06 AM [facility] Chloride 108(H) 98 - 107 mMol/L 08/02/2024 5:06 AM [facility] Carbon Dioxide 23 22 - 31 mMol/L 08/02/2024 5:06 AM [facility] Anion Gap 8 5 - 15 mMol/L 08/02/2024 5:06 AM [facility] Calcium 8.1(L) 8.5 - 10.5 mg/dL 08/02/2024 5:06 AM [facility] Est Glomerular Filtration Rate - Male 91 mL/min/1. 73 m?? 08/02/2024 5:06 AM [facility] Comment: This patient's estimated [...] Stauffer MD CHEMISTRY ORDERABLES Performing Organization Address [facility] Co de Phone Number [facility] [place] [address] * Potassium (08/01/2024 8:39 PM EST) Potassium 4.0 3.5 - 5.0 mMol/L 08/01/2024 9:21 PM EST [facility] Blood VENOUS BLOOD SPECIMEN / Unknown Venipuncture / Unknown 08/01/2024 8:39 PM EST 08/01/2024 8:51 PM EST Jay Silverio MD CHEMISTRY ORDERABL ES Performing Organization Address [facility] Phone Number [facility] [place] [address] * POC, GLUCOSE (08/01/2024 8:35 PM EST) Glucometer, POC 112 65 - 199 mg/dL 08/01/2024 8:36 PM EST [facility] Comment:Supplemental ranges: <140 mg/dL before meals <180 mg/dL all other times of the day. Blood CAPILLARY BLOOD / Unknown 08/01/2024 8:35 PM EST 08/01/2024 8:36 PM EST Krystal Parker MD POINT OF CARE TEST O RDERABLES Performing Organization Address [facility] Co de Phone Number [facility] [place] [address] * POC, GLUCOSE (08/01/2024 4:55 PM EST) Glucometer, POC 99 65 - 199 mg/dL 08/01/2024 4:56 PM EST [facility] Comment:Supplemental ranges: <140 mg/dL before meals <180 mg/dL all other times of the day. Blood CAPILLARY BLOOD / Unknown 08/01/2024 4:55 PM EST 08/01/2024 4:56 PM EST Krystal Parker MD POINT OF CARE TEST O JOSH Performing Organization Address [facility] Co de Phone Number [facility] [place] [address] * POC, GLUCOSE (08/01/2024 12:42 PM EST) Glucometer, POC 130 65 - 199 mg/dL 08/01/2024 12:43 PM EST [facility] Comment:Supplemental ranges: <140 mg/dL before meals <180 mg/dL all other times of the day. Blood CAPILLARY BLOOD / Unknown 08/01/2024 12:42 PM EST 08/01/2024 12:43 PM EST Krystal Parker MD POINT OF CARE TEST O JOSH Performing Organization Address [facility] Co de Phone Number [facility] [place] [address] * (ABNORMAL) Cooximetry, POC (08/01/2024 10:45 AM EST) pO2, Coox 32 mmHg 08/01/2024 10:48 AM [facility] Hemoglobin, Coox 12.9(L) 13.7 - 16.5 g/dL 08/01/2024 10:48 AM EST [facility] Oxyhemoglobin, Coox 66.7 % 08/01/2024 10:48 AM [facility] Carboxyhemoglo bin, Coox 1.1 [...] CARE TEST O RDERABLES Performing Organization Address [facility] Co de Phone Number [facility] [place] [address] * Potassium (08/01/2024 8:20 AM EST) Potassium 4.0 3.5 - 5.0 mMol/L 08/01/2024 10:17 AM EST [facility] Blood ARTERIAL BLOOD / Unknown Venipuncture / Unknown 08/01/2024 8:20 AM EST 08/01/2024 8:30 AM EST Jay Silverio MD CHEMISTRY ORDERABL ES Performing Organization Address [facility] Co de Phone Number [facility] [place] [address] * POC, GLUCOSE (08/01/2024 7:44 AM EST) Glucometer, POC 86 65 - 199 mg/dL 08/01/2024 7:44 AM EST [facility] Comment:Supplemental ranges: <140 mg/dL before meals <180 mg/dL all other times of the day. Blood CAPILLARY BLOOD / Unknown 08/01/2024 7:44 AM EST 08/01/2024 7:44 AM EST Krystal Parker MD POINT OF CARE TEST O RDERASHAY Performing Organization Address [facility]/ZIP Co de Phone Number [facility] [place] [address] * (ABNORMAL) CBC (with Diff) (08/01/2024 4:18 AM EST) White Blood Cell 8.51 4.00 - 9.50 x10(3)/mc L 08/01/2024 4:53 AM EST [facility] Red Blood Cell 4.12(L) 4.58 - 5.54 x10(6)/mc L 08/01/2024 4:53 AM [facility] Hemoglobin 11.2(L) 13.7 - 16.5 g/dL 08/01/2024 4:53 AM [facility] Hematocrit 33.8(L) 40.5 - 48.5 % 08/01/2024 4:53 AM [facility] Mean Cell Volume 82.0(L) 82.9 - 93.1 fL 08/01/2024 4:53 AM [facility] Mean Cell Hemoglobin 27.2(L) 27.5 - 32.1 pg 08/01/2024 4:53 AM [facility] Mean Cell Hemoglobin Concentration 33.1 32.0 - 35.7 g/dL 08/01/2024 4:53 AM [facility] Platelet 94(L) 145 - 357 x10(3)/mc L 08/01/2024 4:53 AM [facility] Mean Platelet Volume 10.9 7.6 - 12.9 fL 08/01/2024 4:53 AM [facility] RDW Standard Deviation 44.2 36.0 - 45.0 fL 08/01/2024 4:53 AM [facility] RDW coefficient of variation 14.7(H) 11.4 - 13.8 % 08/01/2024 4:53 AM [facility] NRBC% auto 0.0 % 08/01/2024 4:53 AM [facility] NRBC Absolute <0.01 <0.01 x10(3)/mc L 08/01/2024 4:53 AM [facility] Neutrophil % 82.7 % 08/01/2024 4:53 AM [facility] Neutrophil Absolute (ANC) - Automated 7.04(H) 1.70 - 6.10 x10(3)/mc L 08/01/2024 4:53 AM [facility] Lymph % 8.6 % 08/01/2024 4:53 AM [facility] Lymph Absolute 0.73(L) 0.90 - 3.20 x10(3)/mc L 08/01/2024 4:53 AM [facility] Monocyte % 7.6 % 08/01/2024 4:53 AM [facility] Monocyte Absolute 0.65 0.30 - 0.90 x10(3)/mc L 08/01/2024 4:53 AM [facility] Eos % 0.5 % 08/01/2024 4:53 AM [facility] Eos Absolute 0.04 0.00 - 0.40 x10(3)/mc L 08/01/2024 4:53 AM [facility] Basophil % 0.2 % 08/01/2024 4:53 AM [facility] Baso Absolute <0.04 0.00 - 0.10 x10(3)/mc L 08/01/2024 4:53 AM [facility] Immature Gran % 0.4 % 4:53 AM [facility] Immature Gran Absolute <0.04 0.00 - 0.04 x10(3)/mc L 08/01/2024 4:53 AM [facility] Blood VENOUS BLOOD SPECIMEN / Unknown Venipuncture / Unknown 08/01/2024 4:18 AM EST 08/01/2024 4:29 AM EST Bridgette Stauffer MD HEMATOLOGY ORDERABLE S [facility] [place] [address] * Magnesium (08/01/2024 4:18 AM EST) Magnesium 0.74 0.69 - 1.07 mMol/L 08/01/2024 5:00 AM [facility] Blood VENOUS BLOOD SPECIMEN / Unknown Venipuncture / Unknown 08/01/2024 4:18 AM EST 08/01/2024 4:29 AM EST Bridgette Stauffer MD CHEMISTRY ORDERABLES [facility] [place] [address] * (ABNORMAL) Basic Metabolic Panel (08/01/2024 4:18 AM EST) Glucose 107 65 - 199 mg/dL 08/01/2024 5:00 AM [facility] Comment:Glucose Concentratio n >=200 mg/dL plus symptoms is consistent with Diabetes Mellitus. Blood Urea Nitrogen 8(L) 10 - 20 mg/dL 08/01/2024 5:00 AM [facility] Creatinine 0.82 0.80 - 1.50 mg/dL 08/01/2024 5:00 AM [facility] Sodium 137 135 - 145 mMol/L 08/01/2024 5:00 AM [facility] Potassium 3.9 3.5 - 5.0 mMol/L 08/01/2024 5:00 AM [facility] Chloride 108(H) 98 - 107 mMol/L 08/01/2024 5:00 AM [facility] Carbon Dioxide 21(L) 22 - 31 mMol/L 08/01/2024 5:00 AM [facility] Anion Gap 8 5 - 15 mMol/L 08/01/2024 5:00 AM [facility] Calcium 7.7(L) 8.5 - 10.5 mg/dL 08/01/2024 5:00 AM [facility] Est Glomerular Filtration Rate - Male 93 mL/min/1. 73 m?? 08/01/2024 5:00 AM [facility] Comment: This patient's estimated [...] Stauffer MD CHEMISTRY ORDERABLES Performing Organization Address [facility] Co de Phone Number [facility] [place] [address] * POC, GLUCOSE (07/31/2024 8:41 PM EST) [facility] Signature Glucometer, POC 73 65 - 199 mg/dL 07/31/2024 8:41 PM EST [facility] Comment:Supplemental ranges: <140 mg/dL before meals <180 mg/dL all other times of the day. Blood CAPILLARY BLOOD / Unknown 07/31/2024 8:41 PM EST 07/31/2024 8:41 PM EST Krystal Parker MD POINT OF CARE TEST O RDERABLES Performing Organization Address [facility] Co de Phone Number [facility] [place] [address] * CARDIAC CATHETERIZATION (07/31/2024 5:53 PM EST) Anatomical Region Laterality Modality Other Narrative 08/01/2024 12:37 PM EST ?[facility] ? Cardiac Catheterization/Intervention Report ? Patient Name: Korey Montoya. ? Procedure Date: 07/31/2024 ? A #: [id number] ? Primary Physician: Janelle, Maldonado T ? Case #: [id number] ? File Name: [id number] ? Catheterization Order Number: [id number] ? [facility] ? Final Report [place], [place] ? Patient Name: ? Korey P. Montoya ?ID#: [id number] ? : ?1950 ? Procedure Date: ? July 31, 2024 ?Case #: ? [id number] ? Room: ? 1 ? Case Physician: [...] ? Comments: ?Impella removed from the right BUSINESS INTERN with deployment of Perclose and ?Angioseal. ??Good [...] Procedure Note Maldonado Luis MD - 08/01/2024 [facility] Cardiac Catheterization/Intervention Report Patient Name: Korey MontoyaToby Procedure Date: 07/31/2024 A #: [id number] Primary Physician: Maldonado Luis Case #: [id number] File Name: [id number] Catheterization Order Number: [id number] [facility] FinalReport [place], [place] Patient Name: Korey Montoya ID#:[id number] :1950 Procedure Date: July 31, 2024 Case [...] was designated as ASA Class IV. The [facility] clinical frailtyscale is 4: Vulnerable. [...] procedures. Comments: Impella removed from the right BUSINESS INTERN with deployment of Perclose and Angioseal. Good [...] Maldonado Luis M.D. Report Finalized: 08/01/2024 12:31 Madlonado Luis MD CARDIAC CATH ORDERAB LES * POC, GLUCOSE (07/31/2024 11:04 AM EST) [facility] Glucometer, POC 82 65 - 199 mg/dL 07/31/2024 11:04 AM EST [facility] Comment:Supplemental ranges: <140 mg/dL before meals <180 mg/dL all other times of the day. Blood CAPILLARY BLOOD / Unknown 07/31/2024 11:04 AM EST 07/31/2024 11:04 AM EST Krystal Parker MD POINT OF CARE TEST O RDERABLES [facility] [place] [address] * (ABNORMAL) Blood Gas, Arterial POC (07/31/2024 8:29 AM EST) Pathologist [facility] pH, Arterial 7.48(H) 7.35 - 7.45 07/31/2024 8:30 AM EST [facility] PCO2, Arterial 29(L) 35 - 45 mmHg 07/31/2024 8:30 AM EST [facility] PO2, Arterial 71(L) 85 - 104 mmHg 07/31/2024 8:30 AM EST [facility] Bicarbonate, Arterial 20.6 20.0 - 26.0 mmol/L 07/31/2024 8:30 AM EST [facility] Base Excess, Arterial -3.0 -3.0 - 3.0 mmol/L 07/31/2024 8:30 AM [facility] Hemoglobin, Arterial 12.3(L) 13.7 - 16.5 g/dL 07/31/2024 8:30 AM [facility] Oxyhemoglobin, Arterial 94.4 94.0 - 97.0 % 07/31/2024 8:30 AM [facility] Carboxyhemoglobin , Arterial 0.7 % 07/31/2024 8:30 AM [facility] Comment: Nonsmokers: 0.5-1.5% COHB ?? Smokers: Variable ??but usually less than 10% ?? Toxic: 20-30% COHB ?? Lethal: Greater than 60% COHB Methemoglobin, Arterial 0.3 <=1.5 % 07/31/2024 8:30 AM [facility] Sodium, Arterial 138 135 - 145 mmol/L 07/31/2024 8:30 AM [facility] Potassium, Arterial 3.5 3.5 - 5.0 mmol/L 07/31/2024 8:30 AM [facility] Chloride, Arterial 109(H) 98 - 107 mmol/L 07/31/2024 8:30 AM [facility] Lactate, Arterial 0.8 0.5 - 2.2 mmol/L 07/31/2024 8:30 AM [facility] Fraction of Inspired Oxygen 21 % 07/31/2024 8:30 AM [facility] PF Ratio 338 Ratio 07/31/2024 8:30 AM [facility] Comment:PF ratio calculated using the non-temperature corrected pO2 result. IONIZED CALCIUM, ARTERIAL 1.08(L) 1.15 - 1.33 mmol/L 07/31/2024 8:30 AM [facility] Glucose, Arterial 86 65 - 199 mg/dL 07/31/2024 8:30 AM [facility] Comment:Glucose Concentratio n >=200 mg/dL plus symptoms is consistent with Diabetes Mellitus. Blood ARTERIAL BLOOD / Unknown 07/31/2024 8:29 AM EST 07/31/2024 8:30 AM EST Krystal Parker MD POINT OF CARE TEST O JOSH Performing Organization Address [facility]/ZIP Co de Phone Number [facility] [place] [address] * POC, GLUCOSE (07/31/2024 7:47 AM EST) Glucometer, POC 82 65 - 199 mg/dL 07/31/2024 7:53 AM [facility] Comment:Supplemental ranges: <140 mg/dL before meals <180 mg/dL all other times of the day. Blood CAPILLARY BLOOD / Unknown 07/31/2024 7:47 AM EST 07/31/2024 7:53 AM EST Krystal Parker MD POINT OF CARE TEST O JOSH Performing Organization Address [facility] Co de Phone Number [facility] [place] [address] * (ABNORMAL) CBC (with Diff) (07/31/2024 1:08 AM EST) White Blood Cell 10.25(H) 4.00 - 9.50 x10(3)/mc L 07/31/2024 1:28 AM [facility] Red Blood Cell 4.13(L) 4.58 - 5.54 x10(6)/mc L 07/31/2024 1:28 AM [facility] Hemoglobin 11.2(L) 13.7 - 16.5 g/dL 07/31/2024 1:28 AM [facility] Hematocrit 33.9(L) 40.5 - 48.5 % 07/31/2024 1:28 AM [facility] Mean Cell Volume 82.1(L) 82.9 - 93.1 fL 07/31/2024 1:28 AM [facility] Mean Cell Hemoglobin 27.1(L) 27.5 - 32.1 pg 07/31/2024 1:28 AM [facility] Mean Cell Hemoglobin Concentration 33.0 32.0 - 35.7 g/dL 07/31/2024 1:28 AM [facility] Platelet 109(L) 145 - 357 x10(3)/mc L 07/31/2024 1:28 AM [facility] Mean Platelet Volume 10.4 7.6 - 12.9 fL 07/31/2024 1:28 AM [facility] RDW Standard Deviation 45.1(H) 36.0 - 45.0 fL 07/31/2024 1:28 AM [facility] RDW coefficient of variation 15.1(H) 11.4 - 13.8 % 07/31/2024 1:28 AM [facility] NRBC% auto 0.0 % 07/31/2024 1:28 AM [facility] NRBC Absolute <0.01 <0.01 x10(3)/mc L 07/31/2024 1:28 AM [facility] Neutrophil % 79.7 % 07/31/2024 1:28 AM [facility] Neutrophil Absolute (ANC) - Automated 8.17(H) 1.70 - 6.10 x10(3)/mc L 07/31/2024 1:28 AM [facility] Lymph % 12.8 % 07/31/2024 1:28 AM [facility] Lymph Absolute 1.31 0.90 - 3.20 x10(3)/mc L 07/31/2024 1:28 AM [facility] Monocyte % 6.9 % 07/31/2024 1:28 AM [facility] Monocyte Absolute 0.71 0.30 - 0.90 x10(3)/mc L 07/31/2024 1:28 AM [facility] Eos % 0.1 % 07/31/2024 1:28 AM [facility] Eos Absolute <0.04 0.00 - 0.40 x10(3)/mc L 07/31/2024 1:28 AM EST [facility] Basophil % 0.3 % 07/31/2024 1:28 AM EST [facility] Baso Absolute <0.04 0.00 - 0.10 x10(3)/mc L 07/31/2024 1:28 AM EST [facility] Immature Gran % 0.2 % 1:28 AM EST [facility] Immature Gran Absolute <0.04 0.00 - 0.04 x10(3)/mc L 07/31/2024 1:28 AM EST [facility] Blood VENOUS BLOOD SPECIMEN / Unknown Venipuncture / Unknown 07/31/2024 1:08 AM EST 07/31/2024 1:18 AM EST Bridgette Stauffer MD HEMATOLOGY ORDERABLE S Performing Organization Address City/[facility]/ZIP Co de Phone Number [facility] [place] [address] * Magnesium (07/31/2024 1:08 AM EST) Magnesium 0.89 0.69 - 1.07 mMol/L 07/31/2024 1:46 AM EST [facility] Blood VENOUS BLOOD SPECIMEN / Unknown Venipuncture / Unknown 07/31/2024 1:08 AM EST 07/31/2024 1:18 AM EST Bridgette Stauffer MD CHEMISTRY ORDERABLES [facility] [place] [address] * (ABNORMAL) Basic Metabolic Panel (07/31/2024 1:08 AM EST) Glucose 97 65 - 199 mg/dL 07/31/2024 1:46 AM EST [facility] Comment:Glucose Concentratio n >=200 mg/dL plus symptoms is consistent with Diabetes Mellitus. Blood Urea Nitrogen 11 10 - 20 mg/dL 07/31/2024 1:46 AM [facility] Creatinine 0.96 0.80 - 1.50 mg/dL 07/31/2024 1:46 AM EST [facility] Sodium 140 135 - 145 mMol/L 07/31/2024 1:46 AM [facility] Potassium 4.1 3.5 - 5.0 mMol/L 07/31/2024 1:46 AM EST [facility] Chloride 110(H) 98 - 107 mMol/L 07/31/2024 1:46 AM [facility] Carbon Dioxide 24 22 - 31 mMol/L 07/31/2024 1:46 AM [facility] Anion Gap 6 5 - 15 mMol/L 07/31/2024 1:46 AM [facility] Calcium 7.7(L) 8.5 - 10.5 mg/dL 07/31/2024 1:46 AM [facility] Est Glomerular Filtration Rate - Male 84 mL/min/1. 73 m?? 07/31/2024 1:46 AM [facility] Comment: This patient's estimated [...] AM EST Bridgette Stauffer MD CHEMISTRY ORDERABLES [facility] [place] [address] * (ABNORMAL) Hepatic Function Panel (07/31/2024 1:08 AM EST) Albumin 3.1(L) 3.2 - 5.2 g/dL 07/31/2024 1:46 AM [facility] Aspartate Aminotransferase 192(H) <=39 unit/L 07/31/2024 1:46 AM [facility] Alanine Aminotransferase 59(H) 0 - 55 unit/L 07/31/2024 1:46 AM [facility] Alkaline Phosphatase 46 40 - 130 unit/L 07/31/2024 1:46 AM [facility] Bilirubin, Total 0.4 <=1.3 mg/dL 07/31/2024 1:46 AM [facility] Bilirubin, Direct <0.2 0.0 - 0.3 mg/dL 07/31/2024 1:46 AM [facility] Protein, Total 5.0(L) 6.1 - 8.0 g/dL 07/31/2024 1:46 AM [facility] Blood VENOUS BLOOD SPECIMEN / Unknown Venipuncture / Unknown 07/31/2024 1:08 AM EST 07/31/2024 1:18 AM EST Krystal Parker MD CHEMISTRY ORDERABLES Performing Organization Address City/[facility] Co de Phone Number [facility] [place] [address] * POC, GLUCOSE (07/30/2024 8:03 PM EST) Glucometer, POC 86 65 - 199 mg/dL 07/30/2024 8:03 PM [facility] Comment:Supplemental ranges: <140 mg/dL before meals <180 mg/dL all other times of the day. Blood CAPILLARY BLOOD / Unknown 07/30/2024 8:03 PM EST 07/30/2024 8:03 PM EST Krystal Parker MD POINT OF CARE TEST O RDERABLES [facility] [place] [address] * Potassium (07/30/2024 8:03 PM EST) Potassium 3.8 3.5 - 5.0 mMol/L 07/30/2024 9:13 PM EST [facility] Blood VENOUS BLOOD SPECIMEN / Unknown Venipuncture / Unknown 07/30/2024 8:03 PM EST 07/30/2024 8:22 PM EST Jay Silverio MD CHEMISTRY ORDERABL ES Performing Organization Address [facility] Co de Phone Number [facility] [place] [address] * POC, GLUCOSE (07/30/2024 6:23 PM EST) Glucometer, POC 93 65 - 199 mg/dL 07/30/2024 6:24 PM EST [facility] Comment:Supplemental ranges: <140 mg/dL before meals <180 mg/dL all other times of the day. Blood CAPILLARY BLOOD / Unknown 07/30/2024 6:23 PM EST 07/30/2024 6:24 PM EST Krystal Parker MD POINT OF CARE TEST O RDERABLES Performing Organization Address City/[facility]/ZIP Co de Phone Number [facility] [place] [address] * POC, GLUCOSE (07/30/2024 5:08 PM EST) Glucometer, POC 78 65 - 199 mg/dL 07/30/2024 5:08 PM EST [facility] Comment:Supplemental ranges: <140 mg/dL before meals <180 mg/dL all other times of the day. Blood CAPILLARY BLOOD / Unknown 07/30/2024 5:08 PM EST 07/30/2024 5:08 PM EST Krystal Parker MD POINT OF CARE TEST O RDERABLES Performing Organization Address [facility]/ZIP Co de Phone Number [facility] [place] [address] * (ABNORMAL) Phosphorus (07/30/2024 3:08 PM EST) Phosphorus 2.1(L) 2.5 - 4.5 mg/dL 07/30/2024 3:58 PM EST [facility] Blood VENOUS BLOOD SPECIMEN / Unknown Venipuncture / Unknown 07/30/2024 3:08 PM EST 07/30/2024 3:12 PM EST Jay Silverio MD CHEMISTRY ORDERABL ES Performing Organization Address [facility] Co de Phone Number [facility] [place] [address] * Magnesium (07/30/2024 3:08 PM EST) Magnesium 0.90 0.69 - 1.07 mMol/L 07/30/2024 3:58 PM EST [facility] Blood VENOUS BLOOD SPECIMEN / Unknown Venipuncture / Unknown 07/30/2024 3:08 PM EST 07/30/2024 3:12 PM EST Jay Silverio MD CHEMISTRY ORDERABL ES Performing Organization Address [facility]/ZIP Co de Phone Number [facility] [place] [address] * (ABNORMAL) Basic Metabolic Panel (07/30/2024 3:08 PM EST) Glucose 105 65 - 199 mg/dL 07/30/2024 4:17 PM EST [facility] Comment:Glucose Concentratio n >=200 mg/dL plus symptoms is consistent with Diabetes Mellitus. Blood Urea Nitrogen 13 10 - 20 mg/dL 07/30/2024 4:17 PM EST [facility] Creatinine 1.01 0.80 - 1.50 mg/dL 07/30/2024 4:17 PM EST [facility] Sodium 141 135 - 145 mMol/L 07/30/2024 4:17 PM EST [facility] Potassium 3.4(L) 3.5 - 5.0 mMol/L 07/30/2024 4:17 PM [facility] Chloride 109(H) 98 - 107 mMol/L 07/30/2024 4:17 PM [facility] Carbon Dioxide 21(L) 22 - 31 mMol/L 07/30/2024 4:17 PM [facility] Anion Gap 11 5 - 15 mMol/L 07/30/2024 4:17 PM [facility] Calcium 7.9(L) 8.5 - 10.5 mg/dL 07/30/2024 4:17 PM [facility] Est Glomerular Filtration Rate - Male 79 mL/min/1. 73 m?? 07/30/2024 4:17 PM [facility] Comment: This patient's estimated [...] MD CHEMISTRY ORDERABL ES [facility] [place] [address] * ECHO LMTD W CONTRAST W LMTD SPEC DOPP COLOR DOPP (07/30/2024 11:42 AM EST) Anatomical Region Laterality Modality Cardiac Other 07/30/2024 10:2 2 AM EST Narrative 07/30/2024 12:34 PM EST [address] [place] [address] ? Echocardiogram Report Name: KOREY MONTOYA ? Study Date: 07/30/2024 10:22 AMBP: 124/66 mmHg : 1950 ? Height: 168 cm ? Account: [id number] Age: 74 yrs ? Weight: 65 kg Gender: Male ?BSA: 1.7 m2 Ordering Physician: Jay Silverio MD Referring Physician: CHAPARRO FERRERA Performed By: OMERO Millan Reason For Study: ST elevation myocardial infarction involving left anterior descending (LAD) coronary artery Interpreting Fellow: Ivan Hernandez. Exam Location: [facility]. Interpretation Summary Left ventricle is severely dilated. [...] Compared to the overnight study by the national opelint analyst fellow the impella position is stable. 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 Procedure Limited - 09920. Image enhancement Definity was used for both [...] Note Kathleen Banda MD - 07/30/2024 [address] [place] [address] Echocardiogram Report Name: KOREY MONTOYA Study Date: 410:22 AMBP: 124/66 mmHg : 1950 Height: 168 cm Account: [id number] Age: 74 yrs Weight: 65 kg Gender: Male BSA: 1.7 m2 Ordering Physician: Jay Silverio MD Referring Physician: CHAPARRO FERRERA Performed By: OMERO Millan Reason For Study: ST elevation myocardial infarction involving leftanterior descending (LAD) coronary artery Interpreting Fellow: Ivan Hernandez. Exam Location: [facility]. Interpretation Summary Left ventricle is severely dilated. [...] Compared to the overnight study by the national opelint analyst fellow the impella positionis stable. The global left ventricular systolic function has improvedpredominantly via recruitment outside the LAD territory which remains akinetic. Procedure Limited - 24255. Image enhancement Definity was used for both [...] - 199 mg/dL 07/30/2024 11:17 AM EST [facility] Comment:Supplemental ranges: <140 mg/dL before meals <180 mg/dL all other times of the day. Blood CAPILLARY BLOOD / Unknown 07/30/2024 11:17 AM EST 07/30/2024 11:17 AM EST Jay Silverio MD POINT OF CARE TEST ORDERABLES [facility] [place] [address] * (ABNORMAL) Blood Gas, Arterial POC (07/30/2024 8:16 AM EST) pH, Arterial 7.44 7.35 - 7.45 07/30/2024 8:17 AM EST [facility] PCO2, Arterial 29(L) 35 - 45 mmHg 07/30/2024 8:17 AM EST [facility] PO2, Arterial 109(H) 85 - 104 mmHg 07/30/2024 8:17 AM EST [facility] Bicarbonate, Arterial 19.4(L) 20.0 - 26.0 mmol/L 07/30/2024 8:17 AM [facility] Base Excess, Arterial -4.7(L) -3.0 - 3.0 mmol/L 07/30/2024 8:17 AM [facility] Hemoglobin, Arterial 12.2(L) 13.7 - 16.5 g/dL 07/30/2024 8:17 AM [facility] Oxyhemoglobin, Arterial 97.1(H) 94.0 - 97.0 % 07/30/2024 8:17 AM [facility] Carboxyhemoglob in, Arterial 1.0 % 07/30/2024 8:17 AM [facility] Comment: Nonsmokers: 0.5-1.5% COHB ?? Smokers: Variable ??but usually less than 10% ?? Toxic: 20-30% COHB ?? Lethal: Greater than 60% COHB Methemoglobin, Arterial 0.1 <=1.5 % 07/30/2024 8:17 AM [facility] Sodium, Arterial 132(L) 135 - 145 mmol/L 07/30/2024 8:17 AM [facility] Potassium, Arterial 3.9 3.5 - 5.0 mmol/L 07/30/2024 8:17 AM [facility] Chloride, Arterial 105 98 - 107 mmol/L 07/30/2024 8:17 AM [facility] Lactate, Arterial 1.2 0.5 - 2.2 mmol/L 07/30/2024 8:17 AM [facility] Fraction of Inspired Oxygen 21 % 07/30/2024 8:17 AM [facility] PF Ratio 519 Ratio 07/30/2024 8:17 AM [facility] Comment:PF ratio calculated using the non-temperature corrected pO2 result. IONIZED CALCIUM, ARTERIAL 1.15 1.15 - 1.33 mmol/L 07/30/2024 8:17 AM [facility] Blood ARTERIAL BLOOD / Unknown 07/30/2024 8:16 AM EST 07/30/2024 8:17 AM EST Jay Silverio MD POINT OF CARE TEST ORDERABLES [facility] [place] [address] * (ABNORMAL) Troponin - Single (07/30/2024 8:09 [...] can be found in the [facility] Laboratory Test Catalog Troponin - [email or web address] Reference: Fourth [place] Definition of Myocardial Infarction. Journal of the [place] [employer] 2018;72:4660-7933 Blood VENOUS BLOOD SPECIMEN / Unknown Venipuncture / Unknown 07/30/2024 8:09 AM EST 07/30/2024 8:26 AM EST Jay Silverio MD CHEMISTRY ORDERABL ES Performing Organization Address City/[facility]/ZIP Co de Phone Number [facility] [place] [address] * POC, GLUCOSE (07/30/2024 7:40 AM EST) [facility] Glucometer, POC 111 65 - 199 mg/dL 07/30/2024 7:40 AM [facility] Comment:Supplemental ranges: <140 mg/dL before meals <180 mg/dL all other times of the day. Blood CAPILLARY BLOOD / Unknown 07/30/2024 7:40 AM EST 07/30/2024 7:40 AM EST Jay Silverio MD POINT OF CARE TEST ORDERABLES [facility] [place] [address] * (ABNORMAL) CBC (with Diff) (07/30/2024 2:11 AM EST) [facility] White Blood Cell 11.25(H) 4.00 - 9.50 x10(3)/mc L 07/30/2024 2:33 AM [facility] Red Blood Cell 4.50(L) 4.58 - 5.54 x10(6)/mc L 07/30/2024 2:33 AM [facility] Hemoglobin 12.2(L) 13.7 - 16.5 g/dL 07/30/2024 2:33 AM [facility] Hematocrit 37.1(L) 40.5 - 48.5 % 07/30/2024 2:33 AM [facility] Mean Cell Volume 82.4(L) 82.9 - 93.1 fL 07/30/2024 2:33 AM [facility] Mean Cell Hemoglobin 27.1(L) 27.5 - 32.1 pg 07/30/2024 2:33 AM [facility] Mean Cell Hemoglobin Concentration 32.9 32.0 - 35.7 g/dL 07/30/2024 2:33 AM [facility] Platelet 166 145 - 357 x10(3)/mc L 07/30/2024 2:33 AM [facility] Mean Platelet Volume 10.6 7.6 - 12.9 fL 07/30/2024 2:33 AM [facility] RDW Standard Deviation 44.6 36.0 - 45.0 fL 07/30/2024 2:33 AM [facility] RDW coefficient of variation 14.6(H) 11.4 - 13.8 % 07/30/2024 2:33 AM [facility] NRBC% auto 0.0 % 07/30/2024 2:33 AM [facility] NRBC Absolute <0.01 <0.01 x10(3)/mc L 07/30/2024 2:33 AM [facility] Neutrophil % 88.9 % 07/30/2024 2:33 AM [facility] Neutrophil Absolute (ANC) - Automated 10.00(H) 1.70 - 6.10 x10(3)/mc L 07/30/2024 2:33 AM [facility] Lymph % 5.1 % 07/30/2024 2:33 AM [facility] Lymph Absolute 0.57(L) 0.90 - 3.20 x10(3)/mc L 07/30/2024 2:33 AM [facility] Monocyte % 5.4 % 07/30/2024 2:33 AM [facility] Monocyte Absolute 0.61 0.30 - 0.90 x10(3)/mc L 07/30/2024 2:33 AM [facility] Eos % 0.0 % 07/30/2024 2:33 AM [facility] Eos Absolute <0.04 0.00 - 0.40 x10(3)/mc L 07/30/2024 2:33 AM [facility] Basophil % 0.2 % 07/30/2024 2:33 AM [facility] Baso Absolute <0.04 0.00 - 0.10 x10(3)/mc L 07/30/2024 2:33 AM [facility] Immature Gran % 0.4 % 2:33 AM EST [facility] Immature Gran Absolute 0.05(H) 0.00 - 0.04 x10(3)/mc L 07/30/2024 2:33 AM [facility] Blood VENOUS BLOOD SPECIMEN / Unknown Venipuncture / Unknown 07/30/2024 2:11 AM EST 07/30/2024 2:22 AM EST Bridgette Stauffer MD HEMATOLOGY ORDERABLE S Performing Organization Address City/[facility]/ZIP Co de Phone Number [facility] [place] [address] * Magnesium (07/30/2024 2:11 AM EST) Pathologist [facility] Magnesium 1.01 0.69 - 1.07 mMol/L 07/30/2024 2:51 AM [facility] Blood VENOUS BLOOD SPECIMEN / Unknown Venipuncture / Unknown 07/30/2024 2:11 AM EST 07/30/2024 2:22 AM EST Bridgette Stauffer MD CHEMISTRY ORDERABLES Performing Organization Address City/[facility] Co de Phone Number [facility] [place] [address] * (ABNORMAL) Basic Metabolic Panel (07/30/2024 2:11 AM EST) Pathologist [facility] Glucose 190 65 - 199 mg/dL 07/30/2024 2:51 AM [facility] Comment:Glucose Concentratio n >=200 mg/dL plus symptoms is consistent with Diabetes Mellitus. Blood Urea Nitrogen 15 10 - 20 mg/dL 07/30/2024 2:51 AM [facility] Creatinine 0.88 0.80 - 1.50 mg/dL 07/30/2024 2:51 AM [facility] Sodium 135 135 - 145 mMol/L 07/30/2024 2:51 AM [facility] Potassium 4.9 3.5 - 5.0 mMol/L 07/30/2024 2:51 AM EST [facility] Chloride 105 98 - 107 mMol/L 07/30/2024 2:51 AM [facility] Carbon Dioxide 19(L) 22 - 31 mMol/L 07/30/2024 2:51 AM [facility] Anion Gap 11 5 - 15 mMol/L 07/30/2024 2:51 AM [facility] Calcium 7.7(L) 8.5 - 10.5 mg/dL 07/30/2024 2:51 AM [facility] Est Glomerular Filtration Rate - Male 91 mL/min/1. 73 m?? 07/30/2024 2:51 AM [facility] Comment: This patient's estimated [...] AM EST Bridgette Stauffer MD CHEMISTRY ORDERABLES [facility] [place] [address] * (ABNORMAL) Cooximetry, POC (07/30/2024 1:00 AM EST) pO2, Coox 28 mmHg 07/30/2024 1:03 AM [facility] Hemoglobin, Coox 12.7(L) 13.7 - 16.5 g/dL 07/30/2024 1:03 AM [facility] Oxyhemoglobin, Coox 54.9 % 07/30/2024 1:03 AM [facility] Carboxyhemoglo bin, Coox 1.0 % 07/30/2024 1:03 AM [facility] Comment: Nonsmokers: 0.5-1.5% COHB ?? Smokers: Variable ??but usually less than 10% ?? Toxic: 20-30% COHB ?? Lethal: Greater than 60% COHB Methemoglobin, Coox 0.0 <=1.5 % 07/30/2024 1:03 AM [facility] Blood (Mixed Venous) 07/30/2024 1:00 AM EST 07/30/2024 1:03 AM EST Jay Silverio MD POINT OF CARE TEST ORDERABLES Performing Organization Address City/State/[facility] Co de Phone Number [facility] [place] [address] * (ABNORMAL) Blood Gas, Arterial POC (07/30/2024 12:57 AM EST) pH, Arterial 7.38 7.35 - 7.45 07/30/2024 12:58 AM [facility] PCO2, Arterial 34(L) 35 - 45 mmHg 07/30/2024 12:58 AM [facility] PO2, Arterial 141(H) 85 - 104 mmHg 07/30/2024 12:58 AM [facility] Bicarbonate, Arterial 19.5(L) 20.0 - 26.0 mmol/L 07/30/2024 12:58 AM [facility] Base Excess, Arterial -5.6(L) -3.0 - 3.0 mmol/L 07/30/2024 12:58 AM [facility] Hemoglobin, Arterial 13.0(L) 13.7 - 16.5 g/dL 07/30/2024 12:58 AM [facility] Oxyhemoglobin, Arterial 98.4(H) 94.0 - 97.0 % 07/30/2024 12:58 AM [facility] Carboxyhemoglobin , Arterial 0.4 % 07/30/2024 12:58 AM [facility] Comment: Nonsmokers: 0.5-1.5% COHB ?? Smokers: Variable ??but usually less than 10% ?? Toxic: 20-30% COHB ?? Lethal: Greater than 60% COHB Methemoglobin, Arterial 0.1 <=1.5 % 07/30/2024 12:58 AM [facility] Sodium, Arterial 130(L) 135 - 145 mmol/L 07/30/2024 12:58 AM [facility] Potassium, Arterial 4.5 3.5 - 5.0 mmol/L 07/30/2024 12:58 AM [facility] Chloride, Arterial 104 98 - 107 mmol/L 07/30/2024 12:58 AM [facility] Lactate, Arterial 1.3 0.5 - 2.2 mmol/L 07/30/2024 12:58 AM [facility] Flow Rate 2.0 L/min 07/30/2024 12:58 AM [facility] IONIZED CALCIUM, ARTERIAL 1.12(L) 1.15 - 1.33 mmol/L 07/30/2024 12:58 AM [facility] Glucose, Arterial 184 65 - 199 mg/dL 07/30/2024 12:58 AM [facility] Comment:Glucose Concentratio n >=200 mg/dL plus symptoms is consistent with Diabetes Mellitus. Blood ARTERIAL BLOOD / Unknown 07/30/2024 12:57 AM EST 07/30/2024 12:58 AM EST Jay Silverio MD POINT OF CARE TEST ORDERABLES [facility] [place] [address] * (ABNORMAL) Troponin - Single (07/29/2024 10:31 PM EST) Troponin-T, High Sensitivity >10,000(H ) <=22 ng/L 07/29/2024 11:03 PM EST [facility] LABORATORY Comment: This patient's [...] can be found in the [facility] Laboratory Test Catalog Troponin - [email or web address]-.testcatalog.org/catalogs/565/files/95033 Reference: Fourth [place] Definition of Myocardial Infarction. Journal of the [place] [employer] 2018;72:8000-8529 Blood VENOUS BLOOD SPECIMEN / Unknown Venipuncture / Unknown 07/29/2024 10:31 PM EST 07/29/2024 10:36 PM EST Yrn Ward MD CHEMISTRY ORDERABL ES [facility] [place] [address] * Potassium (07/29/2024 8:11 PM EST) Potassium 4.1 3.5 - 5.0 mMol/L 07/29/2024 8:52 PM EST [facility] Blood VENOUS BLOOD SPECIMEN / Unknown Venipuncture / Unknown 07/29/2024 8:11 PM EST 07/29/2024 8:16 PM EST Jay Silverio MD CHEMISTRY ORDERABL ES [facility] [place] [address] * (ABNORMAL) Troponin - Single (07/29/2024 8:11 PM EST) Troponin-T, High Sensitivity >10,000(H ) <=22 ng/L 07/29/2024 8:52 PM EST [facility] Comment: This patient's [...] can be found in the [facility] Laboratory Test Catalog Troponin - https://[email or web address].[email or web address]/catalogs/565/files/41680 Reference: Fourth [place] Definition of Myocardial Infarction. Journal of the [place] College of Cardiology 2018;72:5080-6452 Blood VENOUS BLOOD SPECIMEN / Unknown Venipuncture / Unknown 07/29/2024 8:11 PM EST 07/29/2024 8:16 PM EST Jay Silverio MD CHEMISTRY ORDERABL ES [facility] [place] [address] * (ABNORMAL) Phosphorus (07/29/2024 8:11 PM EST) Phosphorus 2.1(L) 2.5 - 4.5 mg/dL 07/29/2024 8:52 PM EST [facility] Blood VENOUS BLOOD SPECIMEN / Unknown Venipuncture / Unknown 07/29/2024 8:11 PM EST 07/29/2024 8:16 PM EST Jay Silverio MD CHEMISTRY ORDERABL ES Performing Organization Address City/[facility]/ZIP Co de Phone Number [facility] [place] [address] * POC, GLUCOSE (07/29/2024 8:09 PM EST) Glucometer, POC 142 65 - 199 mg/dL 07/29/2024 8:09 PM EST [facility] Comment:Supplemental ranges: <140 mg/dL before meals <180 mg/dL all other times of the day. Blood CAPILLARY BLOOD / Unknown 07/29/2024 8:09 PM EST 07/29/2024 8:09 PM EST Jay Silverio MD POINT OF CARE TEST ORDERABLES Performing Organization Address City/[facility]/ZIP Co de Phone Number [facility] [place] [address] * ABORH RECHECK (07/29/2024 6:43 PM EST) ABORH Recheck AB POSITIVE 07/29/2024 10:13 PM EST [facility] Blood VENOUS BLOOD SPECIMEN / Unknown Venipuncture / Unknown 07/29/2024 6:43 PM EST 07/29/2024 7:15 PM EST Jay Silverio MD BLOOD BANK LAB ORD ERABLES Performing Organization Address City/[facility]/ZIP Co de Phone Number [facility] [place] [address] * POC, GLUCOSE (07/29/2024 5:57 PM EST) Glucometer, POC 166 65 - 199 mg/dL 07/29/2024 5:57 PM EST [facility] Comment:Supplemental ranges: <140 mg/dL before meals <180 mg/dL all other times of the day. Blood CAPILLARY BLOOD / Unknown 07/29/2024 5:57 PM EST 07/29/2024 5:57 PM EST Jay Silverio MD POINT OF CARE TEST ORDERABLES Performing Organization Address City/[facility]/ZIP Co de Phone Number [facility] [place] [address] * Type and screen ([facility]/CGP/MAGALIE) (07/29/2024 5:56 PM EST) [facility] ABORH Type AB POSITIVE 07/29/2024 9:44 PM EST [facility] PATIENT HISTORY Not Found 07/29/2024 9:44 PM EST [facility] Expires at [id number] on: 08/01/2024 07/29/2024 9:44 PM EST [facility] ANTIBODY SCREEN AUTOMATED Negative 07/29/2024 9:44 PM EST [facility] T&S only valid at [facility] 07/29/2024 9:44 PM EST [facility] Blood VENOUS BLOOD SPECIMEN / Unknown Venipuncture / Unknown 07/29/2024 5:56 PM EST 07/29/2024 6:07 PM EST Narrative [facility] - 07/29/2024 9:44 PM EST This Type and Screen result is only valid at the [facility] Jay Silverio MD BLOOD BANK LAB ORD ERABLES Performing Organization Address City/[facility]/ZIP Co de Phone Number [facility] [place] [place] [address] * (ABNORMAL) Troponin - Single (07/29/2024 4:52 PM EST) [facility] Troponin-T, High Sensitivity >10,000(H ) <=22 ng/L 07/29/2024 5:25 PM EST [facility] Comment: This patient's [...] can be found in the [facility] Laboratory Test Catalog Troponin - [email or web address].org/catalogs/565/files/43795 Reference: Fourth [place] Definition of Myocardial Infarction. Journal of the [place] [employer] Cardiology 2018;72:0466-8105 Blood VENOUS BLOOD SPECIMEN / Unknown Venipuncture / Unknown 07/29/2024 4:52 PM EST 07/29/2024 4:57 PM EST Jay Silverio MD CHEMISTRY ORDERABL ES Performing Organization Address City/State/[facility] [place] [address] * EKG 12 Lead (07/29/2024 4:21 PM EST) Ventricular rate 72 BPM MUSE SYSTEM Atrial Rate 72 BPM MUSE SYSTEM P-R Interval 168 ms MUSE SYSTEM QRS Duration 82 ms MUSE SYSTEM Q-T Interval 392 ms MUSE SYSTEM QTC Calculated (Bezet) 429 ms MUSE SYSTEM Calculated P [place] 71 degrees MUSE SYSTEM Calculated R [place] 77 degrees MUSE SYSTEM Calculated T [place] 28 degrees MUSE SYSTEM INTERPRETATION Sinus rhythm [...] 7.37 7.35 - 7.45 07/29/2024 4:22 PM [facility] PCO2, Arterial 36 35 - 45 mmHg 07/29/2024 4:22 PM [facility] PO2, Arterial 71(L) 85 - 104 mmHg 07/29/2024 4:22 PM [facility] Bicarbonate, Arterial 20.4 20.0 - 26.0 mmol/L 07/29/2024 4:22 PM [facility] Base Excess, Arterial -4.8(L) -3.0 - 3.0 mmol/L 07/29/2024 4:22 PM [facility] Hemoglobin, Arterial 12.2(L) 13.7 - 16.5 g/dL 07/29/2024 4:22 PM [facility] Oxyhemoglobin, Arterial 93.8(L) 94.0 - 97.0 % 07/29/2024 4:22 PM [facility] Carboxyhemoglobin , Arterial 0.5 % 07/29/2024 4:22 PM [facility] Comment: Nonsmokers: 0.5-1.5% COHB ?? Smokers: Variable ??but usually less than 10% ?? Toxic: 20-30% COHB ?? Lethal: Greater than 60% COHB Methemoglobin, Arterial 0.3 <=1.5 % 07/29/2024 4:22 PM [facility] Sodium, Arterial 134(L) 135 - 145 mmol/L 07/29/2024 4:22 PM [facility] Potassium, Arterial 4.2 3.5 - 5.0 mmol/L 07/29/2024 4:22 PM [facility] Chloride, Arterial 107 98 - 107 mmol/L 07/29/2024 4:22 PM [facility] Lactate, Arterial 1.5 0.5 - 2.2 mmol/L 07/29/2024 4:22 PM [facility] Fraction of Inspired Oxygen 21 % 07/29/2024 4:22 PM [facility] PF Ratio 338 Ratio 07/29/2024 4:22 PM [facility] Comment:PF ratio calculated using the non-temperature corrected pO2 result. IONIZED CALCIUM, ARTERIAL 1.12(L) 1.15 - 1.33 mmol/L 07/29/2024 4:22 PM [facility] Glucose, Arterial 181 65 - 199 mg/dL 07/29/2024 4:22 PM [facility] Comment:Glucose Concentratio n >=200 mg/dL plus symptoms is consistent with Diabetes Mellitus. Blood ARTERIAL BLOOD / Unknown 07/29/2024 4:21 PM EST 07/29/2024 4:22 PM EST Jya Silverio MD POINT OF CARE TEST ORDERABLES Performing Organization Address City/[facility]/ZIP Co de Phone Number [facility] [place] [address] * POC, GLUCOSE (07/29/2024 4:19 PM EST) [facility] Signature Glucometer, POC 185 65 - 199 mg/dL 07/29/2024 4:19 PM [facility] Comment:Supplemental ranges: <140 mg/dL before meals <180 mg/dL all other times of the day. Blood CAPILLARY BLOOD / Unknown 07/29/2024 4:19 PM EST 07/29/2024 4:19 PM EST Jay Silverio MD POINT OF CARE TEST ORDERABLES [facility] [place] [address] * Blood culture (07/29/2024 4:08 PM EST) Blood Culture No growth at 120 hours 08/03/2024 5:01 PM EST [facility] Blood VENOUS BLOOD SPECIMEN / Unknown Venipuncture / Unknown 07/29/2024 4:08 PM EST 07/29/2024 4:15 PM EST Jay Silverio MD MICROBIOLOGY - BLO OD ORDERABLES Performing Organization Address City/[facility] Co de Phone Number [facility] [place] [address] * Blood culture (07/29/2024 4:08 PM EST) Blood Culture No growth at 120 hours 08/03/2024 5:01 PM EST [facility] Blood VENOUS BLOOD SPECIMEN / Unknown Venipuncture / Unknown 07/29/2024 4:08 PM EST 07/29/2024 4:26 PM EST Jay Silverio MD MICROBIOLOGY - BLO OD ORDERABLES Performing Organization Address [facility] Co de Phone Number [facility] [place] [address] * XR Chest One View (07/29/2024 2:30 PM EST) WORKSTATION ID [id number] RAD Anatomical Region Laterality Modality Chest N/A [...] who have questions please contact the health live in caregiver that requested your imaging first. ? Narrative [...] patients who have questions please contactthe health live in caregiver that requested your imaging first. Electronically signed by: Chris Candelaria [facility]([phone]), at 07/29/2024 3:21 PM Vahe Marvin MD IMG DX ORDERABLES * (ABNORMAL) APTT (07/29/2024 2:03 PM EST) Partial Thromboplastin Time >160(HHH) 25 - 37 sec 07/29/2024 2:56 PM EST [facility] Blood VENOUS BLOOD SPECIMEN / Unknown Venipuncture / Unknown 07/29/2024 2:03 PM EST 07/29/2024 2:13 PM EST Vahe Marvin MD HEMATOLOGY ORDERABLE S Performing Organization Address City/[facility]/ZIP Co de Phone Number [facility] [place] [address] * (ABNORMAL) Prothrombin Time (07/29/2024 2:03 PM [...] MD HEMATOLOGY ORDERABLE S Performing Organization Address City/[facility]/ZIP Co de Phone Number [facility] [place] [address] * CRP, acute inflammation (07/29/2024 2:03 PM EST) C-Reactive Protein <3.0 <=4.9 mg/L 07/29/2024 2:52 PM EST [facility] Blood VENOUS BLOOD SPECIMEN / Unknown Venipuncture / Unknown 07/29/2024 2:03 PM EST 07/29/2024 2:14 PM EST Vahe Marvin MD CHEMISTRY ORDERABLES [facility] [place] [address] * Lipid Panel (Reflex Direct LDL) (07/29/2024 2:03 PM EST) [facility] Signature Cholesterol, Total 133 mg/dL 07/29/2024 2:52 PM [facility] Comment: Desirable: < 200 mg/dL Borderline High: 200 - 239 mg/dL High: > or = 240 mg/dL Triglyceride 45 mg/dL 07/29/2024 2:52 PM [facility] Comment: Normal: <150 mg/dL Borderline High: 150-199 mg/dL High: 200-499 mg/dL Very High: > or =500 mg/dL HDL Cholesterol 58 mg/dL 2:52 PM [facility] Comment:Males: High Risk: <4 0 mg/dL LDL Cholesterol 64 mg/dL 4 2:52 PM [facility] Comment: Desirable: <100 mg/dL Above Desirable: 100-129 mg/dL Borderline High: 130-159 mg/dL High: 160-189 mg/dL Very High: > or =190 mg/dL Note: LDL calculation updated to the NIH LDL formula as of 04/15/2024 Non-HDL Cholesterol 75 mg/dL 07/29/2024 2:52 PM [facility] Comment: Desirable: <130 mg/dL Above Desirable: 130-159 mg/dL Borderline High: 160-189 mg/dL High: 190-219 mg/dL Very High: > or = 220 mg/dL Blood VENOUS BLOOD SPECIMEN / Unknown Venipuncture / Unknown 07/29/2024 2:03 PM EST 07/29/2024 2:14 PM EST Narrative [facility] - 07/29/2024 2:52 PM EST [...] Marvin MD CHEMISTRY ORDERABLES Performing Organization Address City/[facility]/ZIP Co de Phone Number [facility] [place] [address] * TSH [place] (07/29/2024 2:03 PM EST) Thyroid Stimulating Hormone 0.70 0.27 - 4.20 mcIU/mL 07/29/2024 2:52 PM EST [facility] Blood VENOUS BLOOD SPECIMEN / Unknown Venipuncture / Unknown 07/29/2024 2:03 PM EST 07/29/2024 2:14 PM EST Vahe Marvin MD CHEMISTRY ORDERABLES Performing Organization Address [facility] Co de Phone Number [facility] [place] [address] * Hemoglobin A1c (07/29/2024 2:03 PM EST) [...] red blood cell turnover may not be workforce services representative of glycemic control. Reference Interval: [...] into estimated average glucose values. ??Diabetes Care 2008:31(8):9964-2569. Additional resources are available on the ADA website (diabetes.org). Vahe Marvin MD CHEMISTRY ORDERABLES [facility] [place] [address] * (ABNORMAL) CBC (with Diff) (07/29/2024 2:03 PM EST) White Blood Cell 19.50(H) 4.00 - 9.50 x10(3)/mc L 07/29/2024 2:18 PM EST [facility] Red Blood Cell 4.81 4.58 - 5.54 x10(6)/mc L 07/29/2024 2:18 PM [facility] Hemoglobin 13.1(L) 13.7 - 16.5 g/dL 07/29/2024 2:18 PM [facility] Hematocrit 40.1(L) 40.5 - 48.5 % 07/29/2024 2:18 PM [facility] Mean Cell Volume 83.4 82.9 - 93.1 fL 07/29/2024 2:18 PM [facility] Mean Cell Hemoglobin 27.2(L) 27.5 - 32.1 pg 07/29/2024 2:18 PM [facility] Mean Cell Hemoglobin Concentration 32.7 32.0 - 35.7 g/dL 07/29/2024 2:18 PM [facility] Platelet 236 145 - 357 x10(3)/mc L 07/29/2024 2:18 PM [facility] Mean Platelet Volume 10.6 7.6 - 12.9 fL 07/29/2024 2:18 PM [facility] RDW Standard Deviation 43.7 36.0 - 45.0 fL 07/29/2024 2:18 PM [facility] RDW coefficient of variation 14.3(H) 11.4 - 13.8 % 07/29/2024 2:18 PM [facility] NRBC% auto 0.0 % 07/29/2024 2:18 PM [facility] NRBC Absolute <0.01 <0.01 x10(3)/mc L 07/29/2024 2:18 PM [facility] Neutrophil % 93.6 % 07/29/2024 2:18 PM [facility] Neutrophil Absolute (ANC) - Automated 18.28(H) 1.70 - 6.10 x10(3)/mc L 07/29/2024 2:18 PM [facility] Lymph % 2.7 % 07/29/2024 2:18 PM [facility] Lymph Absolute 0.52(L) 0.90 - 3.20 x10(3)/mc L 07/29/2024 2:18 PM [facility] Monocyte % 2.9 % 07/29/2024 2:18 PM [facility] Monocyte Absolute 0.56 0.30 - 0.90 x10(3)/mc L 07/29/2024 2:18 PM [facility] Eos % 0.0 % 07/29/2024 2:18 PM [facility] Eos Absolute <0.04 0.00 - 0.40 x10(3)/mc L 07/29/2024 2:18 PM [facility] Basophil % 0.3 % 07/29/2024 2:18 PM [facility] Baso Absolute 0.05 0.00 - 0.10 x10(3)/mc L 07/29/2024 2:18 PM [facility] Immature Gran % 0.5 % 2:18 PM [facility] Immature Gran Absolute 0.09(H) 0.00 - 0.04 x10(3)/mc L 07/29/2024 2:18 PM EST [facility] Blood VENOUS BLOOD SPECIMEN / Unknown Venipuncture / Unknown 07/29/2024 2:03 PM EST 07/29/2024 2:13 PM EST Vahe Marvin MD HEMATOLOGY ORDERABLE S Performing Organization Address City/[facility]/ZIP Co de Phone Number [facility] [place] [address] * Phosphorus (07/29/2024 2:03 PM EST) Phosphorus 2.5 2.5 - 4.5 mg/dL 07/29/2024 2:52 PM EST [facility] Blood VENOUS BLOOD SPECIMEN / Unknown Venipuncture / Unknown 07/29/2024 2:03 PM EST 07/29/2024 2:14 PM EST Vahe Marvin MD CHEMISTRY ORDERABLES Performing Organization Address [facility] Co de Phone Number [facility] [place] [address] * Magnesium (07/29/2024 2:03 PM EST) Magnesium 0.70 0.69 - 1.07 mMol/L 07/29/2024 2:52 PM EST [facility] Blood VENOUS BLOOD SPECIMEN / Unknown Venipuncture / Unknown 07/29/2024 2:03 PM EST 07/29/2024 2:14 PM EST Vahe Marvin MD CHEMISTRY ORDERABLES Performing Organization Address [facility] Co de Phone Number [facility] [place] [address] * (ABNORMAL) Comprehensive metabolic panel (07/29/2024 2:03 PM EST) Glucose 243(H) 65 - 199 mg/dL 07/29/2024 3:11 PM [facility] Comment:Glucose Concentratio n >=200 mg/dL plus symptoms is consistent with Diabetes Mellitus. Blood Urea Nitrogen 13 10 - 20 mg/dL 07/29/2024 3:11 PM [facility] Creatinine 0.88 0.80 - 1.50 mg/dL 07/29/2024 3:11 PM [facility] Sodium 138 135 - 145 mMol/L 07/29/2024 3:11 PM [facility] Potassium 3.6 3.5 - 5.0 mMol/L 07/29/2024 3:11 PM [facility] Chloride 104 98 - 107 mMol/L 07/29/2024 3:11 PM [facility] Carbon Dioxide 19(L) 22 - 31 mMol/L 07/29/2024 3:11 PM [facility] Anion Gap 15 5 - 15 mMol/L 07/29/2024 3:11 PM [facility] Calcium 8.0(L) 8.5 - 10.5 mg/dL 07/29/2024 3:11 PM [facility] Protein, Total 6.0(L) 6.1 - 8.0 g/dL 07/29/2024 3:11 PM [facility] Albumin 3.6 3.2 - 5.2 g/dL 07/29/2024 3:11 PM [facility] Aspartate Aminotransferase 07/29/2024 3:11 PM [facility] Comment:Unable to report due to hemolysis. Alanine Aminotransferase 56(H) 0 - 55 unit/L 07/29/2024 3:11 PM [facility] Alkaline Phosphatase 58 40 - 130 unit/L 07/29/2024 3:11 PM [facility] Bilirubin, Total 0.5 <=1.3 mg/dL 07/29/2024 3:11 PM [facility] Est Glomerular Filtration Rate - Male 91 mL/min/1. 73 m?? 07/29/2024 3:11 PM EST [facility] Comment: This patient's [...] Marvin MD CHEMISTRY ORDERABLES [facility] [place] [address] * (ABNORMAL) Troponin - Single (07/29/2024 2:03 PM EST) Troponin-T, High Sensitivity >10,000(H ) <=22 ng/L 07/29/2024 2:52 PM EST [facility] Comment: This patient's [...] can be found in the [facility] Laboratory Test Catalog Troponin - https://[email or web address].org/catalogs/565/files/[email or web address] Reference: Fourth [place] Definition of Myocardial Infarction. Journal of the [place] [employer] 2018;72:3612-5673 Blood VENOUS BLOOD SPECIMEN / Unknown Venipuncture / Unknown 07/29/2024 2:03 PM EST 07/29/2024 2:14 PM EST Vahe Marvin MD CHEMISTRY ORDERABLES [facility] [place] [address] * (ABNORMAL) Blood Gas, Venous POC (07/29/2024 2:01 PM EST) pH, Venous 7.30(L) 7.32 - 7.42 07/29/2024 2:02 PM EST [facility] PCO2, Venous 42 38 - 58 mmHg 07/29/2024 2:02 PM [facility] PO2, Venous 39 16 - 65 mmHg 07/29/2024 2:02 PM [facility] Bicarbonate, Venous 20.1(L) 22 - 31 mmol/L 07/29/2024 2:02 PM [facility] Base Excess, Venous -6.4(L) 1.9 - 4.5 mmol/L 07/29/2024 2:02 PM [facility] Hemoglobin, Venous 14.2 13.7 - 16.5 g/dL 07/29/2024 2:02 PM [facility] Oxyhemoglobin, Venous 69.3 % 07/29/2024 2:02 PM [facility] Carboxyhemoglobin , Venous 0.8 % 07/29/2024 2:02 PM [facility] Comment: Nonsmokers: 0.5-1.5% COHB ?? Smokers: Variable ??but usually less than 10% ?? Toxic: 20-30% COHB ?? Lethal: Greater than 60% COHB Methemoglobin, Venous 0.3 <=1.5 % 07/29/2024 2:02 PM EST [facility] Sodium, Venous 137 135 - 145 mmol/L 07/29/2024 2:02 PM EST [facility] Potassium, Venous 3.6 3.5 - 5.0 mmol/L 07/29/2024 2:02 PM EST [facility] Chloride, Venous 103 98 - 107 mmol/L 07/29/2024 2:02 PM EST [facility] Glucose, Venous 229(H) 65 - 199 mg/dL 07/29/2024 2:02 PM EST [facility] Comment:Glucose Concentratio n >=200 mg/dL plus symptoms is consistent with Diabetes Mellitus. Lactate, Venous 3.1(H) 0.5 - 2.2 mmol/L 07/29/2024 2:02 PM [facility] Ionized Calcium, Venous 1.11(L) 1.15 - 1.33 mmol/L 07/29/2024 2:02 PM EST [facility] Blood VENOUS BLOOD SPECIMEN / Unknown 07/29/2024 2:01 PM EST 07/29/2024 2:02 PM EST Vahe Marvin MD POINT OF CARE TEST O RDERABLES Performing Organization Address City/State/[facility] Co de Phone Number [facility] [place] [address] * CARDIAC CATHETERIZATION (07/29/2024 1:20 PM EST) Anatomical Region Laterality Modality Other Narrative 07/29/2024 2:02 PM EST ?[facility] ? Cardiac Catheterization/Intervention Report ? Patient Name: Korey Montoya. ? Procedure Date: 07/29/2024 ? A #: [id number] ? Primary Physician: Shavonne, Vahe S ? Case #: [id number] ? File Name: [id number] ? Catheterization Order Number: [id number] ? [facility] ? Final Report [place], [place] ? Patient Name: ? Korey P. Montoya ?ID#: ?[id number] ? : ?1950 ? Procedure Date: ? July 29, 2024 ?Case #: ? [id number] ? Room: ? 5 ? Case Physician: [...] procedure was Emergent. The indication for ?the laboratory mechanical technician visit is ACS less than or [...] 3.5 guiding catheter and a 3.5 Fr [address] ??20 Mhz using ?Manual pullback. ??Imaging [...] A premounted 3.00 x 22 mm Jeison [place] (LOW) was deployed ? with a maximum [...] atmospheres. ??A premounted 3.00 x 08 mm Ellsworth [place] (LOW) ? was deployed with a maximum [...] dose administered prior to arrival in the laboratory mechanical technician. ?Recommended anti-platelet/anti-thrombotic regimen: ?Start aspirin 81 mg daily now and continue for 12 months then stop. ?Start clopidogrel 75 mg daily now and continue for indefinitely. ?These recommendations are made at the time of the intervention. Patient ?and provider preferences or a changing clinical situation may require ?modification of this regimen. Consult [facility] Interventional Cardiology for ?questions. ?The 1 year [...] able ?to start weaning his inotropes/vasopressors. A [place] Colette catheter was ?placed demonstrating improvement in [...] ventricular assist device insertion, right heart ?catheterization, [place] (flow directed cath) insertion, access site ?angiography, vascular ultrasound, venous line / sheath insert and vascular ?closure device. ? Vahe Marvin M.D. ? Electronically Signed by: Vahe Marvin M.D. ? Report Finalized: 07/29/2024 ??13:55 ? Report Last Ammended: 07/30/2024 ??10:15 ? Procedure Note Vahe Marvin MD - 07/30/2024 [facility] Cardiac Catheterization/Intervention Report Patient Name: Korey MontoyaToby Procedure Date: 07/29/2024 A #: [id number] Primary Physician: Vahe Marvin Case #: [id number] File Name: [id number] Catheterization Order Number: [id number] [facility] FinalReport [place], [place] Patient Name: Korey Montoya ID#:[id number] :1950 Procedure Date: July 29, 2024 Case [...] diagnostic procedure was Emergent. Theindication for the laboratory mechanical technician visit is ACS less than or [...] 3.5 guiding catheter and a 3.[address] 20 Mhzusing Manual pullback. Imaging was [...] The priority for the procedure was Emergent.[facility]-Immediate [...] The lesion was predilated with a 2.00mm [id number] balloon with a maximum inflation pressure of 12atmospheres. A premounted 3.00 x 22 mm Ellsworth [place] (LOW) wasdeployed with a maximum inflation pressure [...] atmospheres. A premounted 3.00 x 08 mm Ellsworth [place](LOW) was deployed with a maximum inflation pressure [...] dose administered prior to arrival in the laboratory mechanical technician. Recommended anti-platelet/anti-thrombotic regimen: Start aspirin 81 mg daily now and continue for 12 months then stop. Start clopidogrel 75 mg daily now and continue for indefinitely. These recommendations are made at the time of the intervention.Patient and provider preferences or a changing clinical situation mayrequire modification of this regimen. Consult [facility] Interventional Cardiologyfor questions. The 1 year bleeding [...] wereable to start weaning his inotropes/vasopressors. A [place] Colette catheterwas placed demonstrating improvement in his [...] ventricular assist device insertion, right heart catheterization, [place] (flow directed cath) insertion, access site angiography, vascular ultrasound, venous line / sheath insert andvascular closure device. Vahe Marvin M.D. Electronically Signed by: Vahe Marvin M.D. Report Finalized: 07/29/2024 13:55 Report Last Ammended: 07/30/2024 10:15 Vahe Marvin MD CARDIAC CATH ORDERAB LES * (ABNORMAL) BLOOD GAS, POC (07/29/2024 12:46 PM EST) Sodium, POC 139 135 - 145 mmol/L 07/30/2024 7:30 AM [facility] Potassium, POC 3.4(L) 3.5 - 5.0 mmol/L 07/30/2024 7:30 AM [facility] pH, POC 7.33(L) 7.35 - 7.45 07/30/2024 7:30 AM [facility] Ionized Calcium, POC 1.13(L) 1.15 - 1.33 mmol/L 07/30/2024 7:30 AM [facility] pCO2, POC 38 35 - 45 mmHg 07/30/2024 7:30 AM [facility] pO2, POC 94 85 - 104 mmHg 07/30/2024 7:30 AM [facility] Base Excess, POC -6.0(L) -3.0 - 3.0 mmol/L 07/30/2024 7:30 AM [facility] Hematocrit, POC 39.0(L) 40.5 - 48.5 %PCV 07/30/2024 7:30 AM [facility] Hemoglobin, POC 13.3(L) 13.7 - 16.5 g/dL 07/30/2024 7:30 AM [facility] Comment:The calculation of h emoglobin from hematocrit assumes a normal MCHC. Bicarbonate, POC 19.8(L) 20.0 - 26.0 mmol/L 07/30/2024 7:30 AM [facility] Carbon Dioxide, POC 21(L) 22 - 31 mmol/L 07/30/2024 7:30 AM [facility] Blood VENOUS BLOOD SPECIMEN / Unknown 07/29/2024 12:46 PM EST 07/30/2024 7:30 AM EST Vahe Marvin MD POINT OF CARE TEST O RDERABLES [facility] [address] * (ABNORMAL) BLOOD GAS, POC (07/29/2024 12:12 PM EST) Sodium, POC 135 135 - 145 mmol/L 07/30/2024 7:30 AM [facility] Potassium, POC 3.8 3.5 - 5.0 mmol/L 07/30/2024 7:30 AM [facility] pH, POC 7.27(LLL) 7.35 - 7.45 07/30/2024 7:30 AM [facility] Ionized Calcium, POC 1.14(L) 1.15 - 1.33 mmol/L 07/30/2024 7:30 AM [facility] pCO2, POC 43 35 - 45 mmHg 07/30/2024 7:30 AM [facility] pO2, POC 131(H) 85 - 104 mmHg 07/30/2024 7:30 AM [facility] Base Excess, POC -7.0(L) -3.0 - 3.0 mmol/L 07/30/2024 7:30 AM [facility] Hematocrit, POC 36.0(L) 40.5 - 48.5 %PCV 07/30/2024 7:30 AM [facility] Hemoglobin, POC 12.2(L) 13.7 - 16.5 g/dL 07/30/2024 7:30 AM [facility] Comment:The calculation of h emoglobin from hematocrit assumes a normal MCHC. Bicarbonate, POC 19.7(L) 20.0 - 26.0 mmol/L 07/30/2024 7:30 AM [facility] Carbon Dioxide, POC 21(L) 22 - 31 mmol/L 07/30/2024 7:30 AM [facility] Blood VENOUS BLOOD SPECIMEN / Unknown 07/29/2024 12:12 PM EST 07/30/2024 7:30 AM EST Vahe Marvin MD POINT OF CARE TEST O RDERABLES [facility] [place] [address] documented in this encounter Visit Diagnoses Diagnosis [...] based off of anti-Xa levels per the [facility] Anti-Xa Algorithm and inform the ECMO attending. [...] PM EST 20 mEq 100 mL/ hr [facility] Bag 07/30/2024 9:17 PM EST 20 [...] Routine documented in this encounter Care Teams Pharmaceutical Salesperson Relationship Specialty Start Date End Date Alexia Mtz APRN [address] [place] [id number] PCP - General Family Medicine 07/30/24 documented as of this encounter
--- OUTSIDE RECORDS SUMMARY | 2024-09-07 11:10 | XMS_ITS | Encounter Summary ---
[place] [address] Care Team Providers Care Clinical Research Administrator Name Role Phone Alexia Mtz FREDRICK Primary Care Provider [phone] Reason for Visit * Auth/Cert (Routine) Specialty Diagnoses / Procedures Referred By Theodore muro Referred To Contact Diagnoses STEMI (ST elevation myocardial infarction) STEMI Procedures ER SUI Vahe Marvin MD [facility] [place] [address] [facility] Referral ID Status Reason Start Date Expiration Date Visits Re quested Visits Authorized [id number] 1 1 Encounter Details Date Type Department Care Team (Late st Contact Info) Description 07/31/2024 4:30 PM EST - 07/31/2024 5:30 PM EST Surgery [place] [id number] Maldonado Luis MD [facility] [place] [address] CARDIAC CATHETERIZATION Social History Tobacco Use Types Packs/Day Years Used Date Smoking Tobacco: Former Cigarettes Smokeless Tobacco: Never Alcohol Use Standard Drinks/Week Comments Not Currently 0 (1 standard drink = 0.6 oz pur e alcohol) [facility] Utilities Answer Date Recorded In the past 12 months has [employer] electric, gas, oil, or water company threatened [...] in the past 12 m [facility], were you homeless or living in a [...] Korey Montoya Patient Age: 74 y.o. Language: Wallisian Race: White Ethnicity: Not nor Admit date: [...] please contact your inpatient physician through the [facility] [employer]ffant Curtain Machine Tender . Issues afterhours and on weekends will [...] EKG. Patient transferred via air ambulance to [facility] on 07/29 for LHC and LOW to [...] EKG. Was transferred via air ambulance to [facility] for further management and LHC demonstrated 100% [...] the next year. Access was via right JOURNEYMAN ELECTRICIAN PV INSTALLER and this sitewas clean, dry and intact [...] for Chest pain. Replaces: nitroGLYcerin 400 mcg/spray [place], Non-Aerosol 0.4 mg Quantity: 90 tablet Refills: [...] Refills: 0 STOPPED Medications nitroGLYcerin 400 mcg/spray [place], Non-Aerosol Commonly known as: NITROLINGUAL Replaced by: [...] of one year. After this time, your miscellaneous machine operator will determine if you need to [...] away. Stay on the phone. The emergency drain tile machine operator will tell you what to [...] appointments: During 8am-5pm Tuesday through Tuesday call [phone] to speak with a nurse in the cardiology clinic All other times call [phone] and ask to speak to the program manager environmental planning construction field engineer. Follow up Appointments: PCP Alexia Mtz, COUTURIERE [phone]. Please call to establish a follow up appointment within 1-2 weeks of discharge. Cardiology. Referral to heart failure has been sent. General Instructions None Future Appointments and Orders Future Orders Complete By Expires Referral to Cardiac Rehab [[id number] Custom] As directed Process Instructions: If no progress note charted, please enter Clinical details in comments. Scheduling Instructions: Questions: My question or request is: STEMI, PCI- cardiac rehab at [facility] Referral to Cardiology [REF12 Custom] As directed [...] of one year. After this time, your miscellaneous machine operator will determine if you need to [...] away. Stay on the phone. The emergency drain tile machine operator will tell you what to [...] appointments: During 8am-5pm Tuesday through Tuesday call [phone] to speak with a nurse in the cardiology clinic All other times call [phone] and ask to speak to the program manager environmental planning construction field engineer. Follow up Appointments: PCP Alexia Mtz, COUTURIERE [phone]. Please call to establish a follow up [...] EKG. Patient transferred via air ambulance to [facility] on 07/29 for LHC and LOW to LAD for 100% occlusion Social History: Pt lives with his in a 1 level home with 2 NAOMI. 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 [...] Total time: 35 (tef) minutes Time IN/OUT: [id number] ZAIDA DUBOSE PT Pager: [phone] Physical Therapy Inpatient Rehabilitation Department * Yrn Ward MD - 08/03/2024 10:38 AM EST CV HOSPITALIST 2 - [facility] DAILY PROGRESS NOTE Page [phone] to reach a provider 04/04 Admit Date: [...] Compared to the overnight study by the construction field engineer fellow the impella position is stable. 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 [facility] 07/29/24 Conclusions: * One vessel coronary artery disease (LAD) * Mild pulmonary hypertension * Elevated pulmonary capillary wedge pressure * Successful stent insertion of the proximal LAD lesion * See Dual Antiplatelet (DAPT) Recommendations above * Successful impella placement for cardiogenic shock. Telemetry: I have personally reviewed and interpreted the telemetry from the last 24 hours. [facility] Assessment: ASSESSMENT: Korey Montoya is a 74 y.o. male w/ PMH of hypertension, HLD, and BPH who presents for chief concern of chest pain after being found to have ST elevations on EKG. Patient transferred via air ambulance to [facility] on 07/29 for LHC and LOW to [...] to be determined OT: PCP Alexia Mtz, COUTURIERE [phone] * Zaida Dubose, PT - 08/02/2024 2:08 PM EST Physical Therapy Evaluation Patient profile: Korey Montoya is a 74 y.o. male w/ PMH of hypertension, HLD, and BPH who presents for chief concern of chest pain after being found to have ST elevations on EKG. Patient transferred via air ambulance to [facility] on 07/29 for LHC and LOW to LAD for 100% occlusion Social History: Pt lives with his in a 1 level home with 2 NAOMI. 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 [...] Total time: 37 (eval) minutes Time IN/OUT: 2938-7833 ZAIDA DUBOSE, PT Pager: [phone] Physical Therapy Inpatient Rehabilitation Department * Gagan [...] EKG. Patient transferred via air ambulance to [facility] on 07/29 for LHC and LOW to LAD for 100% occlusion. TTE showed apical akinesis and inferior hypokinesis with EF 20%. RHC showed elevated filling pressures. Impella placed and P-level 6 at time of transfer to [facility]. CI initially 1.97, improved to 2.2 After [...] PCP: Alexia Mtz APRN PCP phone number: [phone] Date of Admission: 07/29/2024 ( Hospital Day 4 days ) Attending:Bridgette Stauffer MD ID: Korey Montoya is a 74 y.o. male w/ PMH of hypertension, HLD, and BPH on Hospital Day4 for chief concern of chest pain after being found to have ST elevations on EKG. Patient transferred via air ambulance to [facility] on 07/29 for LHC and LOW to [...] 07/29/24 1621 PHART 7.48* 7.44 7.38 7.37 [id number] 29* 29* 34* 36 PO2ART 71* 109* 141* 71* QAV3OKV 20.6 19.4* 19.5* 20.4 VBG (Venous Blood Gas) Recent Labs 07/29/24 1401 PHVEN 7.30* PO2VEN 39 PII1XRU 20.1* Mixed Venous Sat No results for input(s): K8XVOX3 in the last 168 hours. Objective: Vitals [...] 07/29/24 1621 PHART 7.48* 7.44 7.38 7.37 SVP8TCS 29* 29* 34* 36 PO2ART 71* 109* 141* 71* BRJ2EXM 20.6 19.4* 19.5* 20.4 VBG (Venous Blood Gas) Recent Labs 07/29/24 1401 PHVEN 7.30* PO2VEN 39 POG6OIU 20.1* Mixed Venous Sat No results for input(s): X9QSNC6 in the last 168 hours. Microbiology: Microbiology Results (Last 30 days) Procedure Component Value Units Date/Time Blood culture [[id number]] Collected: 07/29/241607 Lab Status: Preliminary result Specimen: Blood, Venous Updated: 08/01/241700 Blood Culture No growth at 72 hours Blood culture [[id number]] Collected: 07/29/241607 Lab Status: Preliminary result Specimen: Blood, Venous Updated: 08/01/241700 Blood Culture No growth at 72 hours Imaging: Results for orders placed or performed during the hospital encounter of 07/29/24 XR Chest One View (Exam End: 07/29/2024 2:30 PM) Result Value WORKSTATION ID [id number] Impression 1. No pulmonary edema. 2. No [...] signed by: Chris Candelaria MD, [facility] ([phone]), at 07/29/2024 3:21 PM TTE ( 07/30/24) [...] Compared to the overnight study by the construction field engineer fellow the impella position is stable. [...] EKG. Patient transferred via air ambulance to [facility] on 07/29 for LHC and LOW to LAD for 100% occlusion. 08/02/24 Hemodynamically he has been stable without he support of pressors, inotrope's for over 24 hours. Will start to initiate GDMT today and transition him to the floor service for further GDMT initiation and titration. Neuro #DEISON - Awake, alert, interactive Cardiovascular #STEMI LAD, [...] Susannah Ornelas MD Internal Medicine, PGY-1 Cardiology, [facility] 08/02/24 12:45 PM CARDIOLOGY STAFF NOTE I [...] today). Transfer to floor. Krystal Parker MD, MERGED WITH [facility], FASE Staff Landfill Grader animal sitter * Gagan Catherine MD - 08/01/2024 11:12 [...] EKG. Patient transferred via air ambulance to [facility] on 07/29 for LHC and LOW to LAD for 100% occlusion. TTE showed apical akinesis and inferior hypokinesis with EF 20%. RHC showed elevated filling pressures. Impella placed and P-level 6 at time of transfer to [facility]. CI initially 1.97, improved to 2.2 After impella. Received about 3 L of fluid during procedural course. Patient initially required norepinephrine 30, epinephrine 10, and vasopressin 0.04 for hemodynamic support, which was weaned upon arrival to [facility] to norepinephrine 20and levo 0.04 N - [...] PCP: Alexia Mtz APRN PCP phone number: [phone] Date of Admission: 07/29/2024 ( Hospital Day 3 days ) Attending:Krystal Parker MD ID: Korey Montoya is a 74 y.o. male w/ PMH of hypertension, HLD, and BPH on Hospital Day3 for chief concern of chest pain after being found to have ST elevations on EKG. Patient transferred via air ambulance to [facility] on 07/29 for LHC and LOW to [...] 07/29/24 1621 PHART 7.48* 7.44 7.38 7.37 OPD9FVZ 29* 29* 34* 36 PO2ART 71* 109* 141* 71* LFV5INA 20.6 19.4* 19.5* 20.4 VBG (Venous Blood Gas) Recent Labs 07/29/24 1401 PHVEN 7.30* PO2VEN 39 KIK2EKJ 20.1* Mixed Venous Sat No results for input(s): A4HXCX3 in the last 168 hours. PA Catheter [...] 07/29/24 1621 PHART 7.48* 7.44 7.38 7.37 IYR2YON 29* 29* 34* 36 PO2ART 71* 109* 141* 71* MRZ8YCZ 20.6 19.4* 19.5* 20.4 VBG (Venous Blood Gas) Recent Labs 07/29/24 1401 PHVEN 7.30* PO2VEN 39 NCP1GTR 20.1* Mixed Venous Sat No results for input(s): H9OILL3 in the last 168 hours. Microbiology: Microbiology Results (Last 30 days) Procedure Component Value Units Date/Time Blood culture [[id number]] Collected: 07/29/24 160 Lab Status: Preliminary result Specimen: Blood, Venous Updated: 07/31/24 170 Blood Culture No growth at 48 hours Blood culture [[id number]] Collected: 07/29/24 1608 Lab Status: Preliminary result Specimen: Blood, Venous Updated: 07/31/24 1701 Blood Culture No growth at 48 hours Imaging: Results for orders placed or performed during the hospital encounter of 07/29/24 XR Chest One View (Exam End: 07/29/2024 2:30 PM) Result Value WORKSTATION ID [id number] Impression 1. No pulmonary edema. 2. No [...] signed by: Chris Candelaria MD, [facility] ([phone]), at 07/29/2024 3:21 PM TTE ( 07/30/24) [...] Compared to the overnight study by the construction field engineer fellow the impella position is stable. [...] EKG. Patient transferred via air ambulance to [facility] on 07/29 for LHC and LOW to [...] Susannah Ornelas MD Internal Medicine, PGY-1 Cardiology, [facility] 08/01/24 7:13 AM CARDIOLOGY STAFF NOTE I [...] with him; questions answered. Krystal Parker MD, MERGED WITH [facility], [facility] Staff Landfill Grader animal sitter * Krystal Parker MD - 07/31/2024 1:06 [...] EKG. Patient transferred via air ambulance to [facility] on 07/29 for LHC and LOW to LAD for 100% occlusion. TTE showed apical akinesis and inferior hypokinesis with EF 20%. RHC showed elevated filling pressures. Impella placed and P-level 6 at time of transfer to [facility]. CI initially 1.97, improved to 2.2 After impella. Received about 3 L of fluid during procedural course. Patient initially required norepinephrine 30, epinephrine 10, and vasopressin 0.04 for hemodynamic support, which was weaned upon arrival to [facility] to norepinephrine 20and levo 0.04 N - [...] PCP: Alexia Mtz APRN PCP phone number: [phone] Date of Admission: 07/29/2024 ( Hospital Day 2 days ) Attending:Krystal Parker MD ID: Korey Montoya is a 74 y.o. male w/ PMH of hypertension, HLD, and BPH on Hospital Day2 for chief concern of chest pain after being found to have ST elevations on EKG. Patient transferred via air ambulance to [facility] on 07/29 for LHC and LOW to [...] 0057 07/29/24 1621 PHART 7.44 7.38 7.37 WOB6WPP 29* 34* 36 PO2ART 109* 141* 71* FZA2MOL 19.4* 19.5* 20.4 VBG (Venous Blood Gas) Recent Labs 07/29/24 1401 PHVEN 7.30* PO2VEN 39 XVB3OIQ 20.1* Mixed Venous Sat No results for input(s): C5ITAS9 in the last 168 hours. PA Catheter [...] 0057 07/29/24 1621 PHART 7.44 7.38 7.37 SFI5NER 29* 34* 36 PO2ART 109* 141* 71* KDD7KCU 19.4* 19.5* 20.4 VBG (Venous Blood Gas) Recent Labs 07/29/24 1401 PHVEN 7.30* PO2VEN 39 BPD3NKQ 20.1* Mixed Venous Sat No results for input(s): P3KDSB6 in the last 168 hours. Microbiology: Microbiology Results (Last 30 days) Procedure Component Value Units Date/Time Blood culture [[id number]] Collected: 07/29/241607 Lab Status: Preliminary result Specimen: Blood, Venous Updated: 07/30/241700 Blood Culture No Growth at 18-24 hrs. Blood culture [[id number]] Collected: 07/29/241607 Lab Status: Preliminary result Specimen: Blood, Venous Updated: 07/30/241700 Blood Culture No Growth at 18-24 hrs. Imaging: Results for orders placed or performed during the hospital encounter of 07/29/24 XR Chest One View (Exam End: 07/29/2024 2:30 PM) Result Value WORKSTATION ID [id number] Impression 1. No pulmonary edema. 2. No [...] signed by: Chris Candelaria MD, [facility] ([phone]), at 07/29/2024 3:21 PM TTE ( 07/30/24) [...] Compared to the overnight study by the construction field engineer fellow the impella position is stable. [...] EKG. Patient transferred via air ambulance to [facility] on 07/29 for LHC and LOW to [...] work to optimize volume status while continuing cmzpalj-riatzq-jndpdgroqt therapies at this time. Obtain comprehensive TTE. [...] ILL WITH THESE DIAGNOSES BEING MANAGED BY [facility] TEAM: # Anterior STEMI, late-presenting # Cardiogenic [...] EKG. Patient transferred via air ambulance to [facility] on 07/29 for LHC and LOW to LAD for 100% occlusion. TTE showed apical akinesis and inferior hypokinesis with EF 20%. RHC showed elevated filling pressures. Impella placed and P-level 6 at time of transfer to [facility]. CI initially 1.97, improved to 2.2 After impella. Received about 3 L of fluid during procedural course. Patient initially required norepinephrine 30, epinephrine 10, and vasopressin 0.04 for hemodynamic support, which was weaned upon arrival to [facility] to norepinephrine 20and levo 0.04 N - [...] PCP: Yoel Artis APRN PCP phone number: [phone] Date of Admission: 07/29/2024 ( Hospital Day 1 day ) Attending:Aubree Silverio MD ID: Korey Montoya is a 74 y.o. male w/ PMH of hypertension, HLD, and BPH on Hospital Day1 for chief concern of chest pain after being found to have ST elevations on EKG. Patient transferred via air ambulance to [facility] on 07/29 for LHC and LOW to LAD for 100% occlusion. 24 Hour Events/Subjective: Yesterday: - Admitted to the [facility] - After his LHC, he demonstrated significant [...] 0057 07/29/24 1621 PHART 7.44 7.38 7.37 TNU2PET 29* 34* 36 PO2ART 109* 141* 71* OGS8AVG 19.4* 19.5* 20.4 VBG (Venous Blood Gas) Recent Labs 07/29/24 1401 PHVEN 7.30* PO2VEN 39 TFS2BOV 20.1* Lactate ( Last 12 hours) 1.3 >> 1.2 Mixed Venous Sat No results for input(s): Q6GMPL5 in the last 168 hours. PA Catheter [...] 0057 07/29/24 1621 PHART 7.44 7.38 7.37 HEL5DOF 29* 34* 36 PO2ART 109* 141* 71* ORG2SXU 19.4* 19.5* 20.4 VBG (Venous Blood Gas) Recent Labs 07/29/24 1401 PHVEN 7.30* PO2VEN 39 BYH6OSY 20.1* Mixed Venous Sat No results for input(s): T9ZJUX7 in the last 168 hours. Microbiology: Microbiology Results (Last 30 days) Procedure Component Value Units Date/Time Blood culture [[id number]] Collected: 07/29/24 1608 Lab Status: In process Specimen: Blood, Venous Updated: 07/29/24 1626 Blood culture [[id number]] Collected: 07/29/24 1608 Lab Status: In process Specimen: Blood, Venous Updated: 07/29/24 1615 Imaging: Results for orders placed or performed during the hospital encounter of 07/29/24 XR Chest One View (Exam End: 07/29/2024 2:30 PM) Result Value WORKSTATION ID [id number] Impression 1. No pulmonary edema. 2. No [...] signed by: Chris Candelaria MD, [facility] ([phone]), at 07/29/2024 3:21 PM Medications Scheduled Meds: [...] EKG. Patient transferred via air ambulance to [facility] on 07/29 for LHC and LOW to [...] EKG. Patient transferred via air ambulance to [facility] on 07/29 for LHC and LOW to [...] EKG. Was transferred via air ambulance to [facility] for further management and [facility] demo nstrated 100% occlusion. No significant RCA, LMCA, or LCX disease. LOW placed in LAD with some residual distal disease meriting placement of overlapping distal stent. TTE showed apical akinesis and inferior hypokinesis with EF 20%. RHC showed elevated filling pressures. Impella placed and P-level 6 at time of transfer to [facility]. CI initially 1.97, improved to 2.2 After impella. Received about 3 L of fluid during procedural course. Patient initially required norepinephrine, epinephrine, and vasopressin for hemodynamic support, which was weaned upon arrival to [facility] to norepinephrine 20 and levo 0.04 (epinephrine [...] performed by Brandan Mcgovern MD [facility] ENDOSCOPY Significant Family History: Family [...] mouth. Past Week nitroGLYcerin (NITROLINGUAL) 400 mcg/spray [place], Non-Aerosol 1 spray to anus for proctalgia [...] 3.5 guiding catheter and a 3.5 Fr [facility] [address] 20 Mhz using Manual pullback. Imaging [...] atmospheres. A premounted 3.00 x 22 mm [place] (LOW) was deployed with a maximum inflation [...] atmospheres. A premounted 3.00 x 08 mm [place] (LOW) was deployed with a maximum inflation [...] a limited study performed by a fellow construction field engineer to evaluate for cardiogenic shock with [...] Compared to the overnight study by the construction field engineer fellow the impella position is stable. [...] EKG. Patient transferred via air ambulance to [facility] on 07/29 for LHC and LOW to [...] PCP: Yoel Artis APRN PCP phone number: [phone] Date of Admission: 07/29/2024 ( Hospital Day 0 days ) Attending:Aubree Silverio MD ID: Korey Montoya is a 74 y.o. male w/ PMH of hypertension, HLD, and BPH who presents for chief concern of chest pain after being found to have ST elevations on EKG. Patient transferred via air ambulance to [facility] on 07/29 for LHC and LOW to LAD for 100% occlusion. HPI: Korey Montoya is a 74 y.o. male w/ PMH of hypertension, HLD, and BPH who presents for chief concern of chest pain after being found to have ST elevations on EKG. Patient transferred via air ambulance to [facility] on 07/29 for LHC and LOW to [...] EKG. Was transferred via air ambulance to [facility] for further management and LHC demonstrated 100% [...] performed by Brandan Mcgovern MD [facility] ENDOSCOPY Family History Family History [...] Blood Gas) No results for input(s): PHART, UWG0RRJ, PO2ART, WOI4FZT, LACTATEVEN, GLG4BRU, PFRATIOART2 in the last 168 hours. VBG (Venous Blood Gas) Recent Labs 07/29/24 1401 PHVEN 7.30* PO2VEN 39 KLE7HNE 20.1* Mixed Venous Sat No results for input(s): X2ISOP2 in the last 168 hours. PA Catheter [...] Blood Gas) No results for input(s): PHART, MXH2TGV, PO2ART, POL7EJM, LACTATEVEN, OAC2DXR, PFRATIOART2 in the last 168 hours. VBG (Venous Blood Gas) Recent Labs 07/29/24 1401 PHVEN 7.30* PO2VEN 39 CPC4XAK 20.1* Mixed Venous Sat No results for input(s): Z4BOXL8 in the last 168 hours. Microbiology: Microbiology [...] EKG. Patient transferred via air ambulance to [facility] on 07/29 for LHC. Found to have 100% occlusion of LAD for which he underwent LOW to LAD.Otherwise no other significant vessel disease. Fahad is currently hemodynamically tenuous but improving upon admission to [facility], requiring hemodynamic support with norepinephrine and vasopressin at time of admission along with mechanical support with Impella device. Reassuringly, he demonstrates decreasing pressor requirements since admission to [facility], with epinephrine completely weaned. He does demonstrate [...] Bernardo Amos MD Internal Medicine, PGY-3 Cardiology, [facility] 07/29/24 3:14 PM Cardiology Attending Note I [...] MD, FACP, FACC Section of Cardiovascular Medicine [facility] Repair Millerceramic chemist [facility] [employer] [facility] This patient meets or has met [...] to the planned procedure. Hand Hygiene: The brick stacker did perform hand hygiene prior to arterial [...] ease. Good wave form. Ivan Hernandez MD Press Box Custodian Associated attestation - Rolando Yeh MD - [...] in an outpatient cardiac rehabilitation program at [facility] was discussed. Patient agrees to a referral [...] No Patient is insured through: Primary Insurance: [facility] MANAGED MEDICARE Payor: [facility] MANAGED MEDICARE / Plan: [facility] MANAGED MEDICARE COMPLETE / Product Type: [...] Date of Discharge: 08/04/2024 Gaby Wong RN, Pager-[phone] * Initial Assessments - Char Meza, OT - 08/03/2024 10:00 AM EST Occupational Therapy Evaluation Patient profile: Korey Montoya is a 74 y.o. male admitted on 07/29/2024 w/ PMH of hypertension, HLD, and BPH who presents for chief concern of chest pain after being found to have ST elevations onEKG. Patient transferred via air ambulance to [facility] on 07/29 for LHC and LOW to [facility] for 100% occlusion. Past Medical History: Diagnosis Date ADHD HLD (hyperlipidemia) HTN (hypertension) Tremor Past Surgical History: Procedure Laterality Date HAND SURGERY PRO COLONOSCOPY, REMV LESN, SNARE N/A 08/30/2023 COLONOSCOPY, POLYPECTOMY, REMOVAL LESION BY SNARE (WRVU 4.57) performed by Brandan Mcgovern MD [facility] ENDOSCOPY Social History: Patient lives with his . Home Setup: 2 NAOMI to a 1 level home. DME: none Baseline ADL/Mobility: Independent with ADLs and IADLs. Enjoys walking. able assist as needed. Precautions/Special Considerations: Full code. Risk for falls. Subjective: I have access to an [employer] weight gym. (Educated to wait for MD [...] evaluation only Total Minutes, Occupational Therapy: 14 ([id number] (evaluation)) 2017 OT Evaluation Code Rationale: Diagnosis [...] and measurable assessment of functional outcome. Pager: [phone] Char Meza OT 08/03/2024 Occupational Therapy Rehabilitation [...] (Interventions Implemented as Appropriate) Flowsheets (Taken 08/01/2024 5647) Outcome Summary: A+O, no pain. NSR. MAP [...] Procedure Note: Patient Name: Korey Montoya : [id number] MR#: [id number] Case Date: 07/31/2024 [employer] Tender: Surgeons and Role: * Maldonado Luis MD - Primary * Quinten Charles PA - Physician [employer] Supervisor Preoperative diagnosis: shock, impella Postoperative diagnosis: * same * Procedure(s) performed: Impella removal form right [employer] PV INSTALLER Access: Right [employer]OUR[employer] PV INSTALLER A time-out was conducted prior to the [...] surrogate would be surrogate decision maker per [place] surrogate decision making law. (Only good for 180 days) Any patient receiving care in [place] must abide by [place] law. The hierarchy for surrogate decision making [...] (i) The agent with financial power of commercial litigation attorney or a conservator appointed in [...] In the past 12 months has the [employer], oil, or water [employer] threatened to shut off services in your [...] confirmed as: Mailing Address: [facility] Pending sale to [facility] [address] Physical Address: [address] [place], [place] Social & Family Supports: All names [...] Health/Prescription Coverage: Primary Insurance: [facility] [employer] MEDICARE Payor: [employer] MANAGED MEDICARE / Plan: [facility] MANAGED MEDICARE COMPLETE / Product Type: *No Product type* / Secondary Insurance: N/A ; Prescription Coverage: Yes Preferred Pharmacy: [address] [address] Status: Patient is a : No Primary Care Provider confirmed: Alexia Mtz, COUTURIERE [phone] Patient/Caregiver Goals of Treatment: return home Potential [...] 07/29/2024 6:25 PM EST 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 CXR and EKG completed. Impella [...] Procedure Note: Patient Name: Korey Montoya : [id number] MR#: [id number] Case Date: 07/29/2024 [employer] Tender: Surgeons and Role: * Vahe Marvin MD - Primary * Susannah Watts PA - Physician [employer] Supervisor Preoperative diagnosis: STEMI Postoperative diagnosis: * STEMI, LAD Artery * * Cardiogenic Shock * Procedure(s) performed: [facility] Coronary angiogram Stent insertion coronary IVUS coronary Venous line insert [facility] [place] Colette Catheter Vascular closure device Ventricular assist [...] x 22 mm to 14 deonna JEISON Cole with LIZ 3 flow. Residual distal disease at distal stent, overlapping distal stent was inserted with 3.0 x 8 mm JEISON Cole. Systolic's in the 80's sustained. Patient re [...] AM EST Office Visit Cardiology at [address] [phone] Mushtaq Murphy, COUTURIERE Scheduled Orders Name Type Priority Associated Diagnoses [...] (with Diff) (08/04/2024 6:08 AM EST) Pathologist [facility] White Blood Cell 7.27 4.00 - 9.50 x10(3)/mc L 08/04/2024 6:39 AM [facility] Red Blood Cell 4.28(L) 4.58 - 5.54 x10(6)/mc L 08/04/2024 6:39 AM [facility] Hemoglobin 11.6(L) 13.7 - 16.5 g/dL 08/04/2024 6:39 AM [facility] Hematocrit 34.8(L) 40.5 - 48.5 % 08/04/2024 6:39 AM [facility] Mean Cell Volume 81.3(L) 82.9 - 93.1 fL 08/04/2024 6:39 AM [facility] Mean Cell Hemoglobin 27.1(L) 27.5 - 32.1 pg 08/04/2024 6:39 AM [facility] Mean Cell Hemoglobin Concentration 33.3 32.0 - 35.7 g/dL 08/04/2024 6:39 AM [facility] Platelet 178 145 - 357 x10(3)/mc L 08/04/2024 6:39 AM [facility] Mean Platelet Volume 10.6 7.6 - 12.9 fL 08/04/2024 6:39 AM [facility] RDW Standard Deviation 42.0 36.0 - 45.0 fL 08/04/2024 6:39 AM [facility] RDW coefficient of variation 14.3(H) 11.4 - 13.8 % 08/04/2024 6:39 AM [facility] NRBC% auto 0.0 % 08/04/2024 6:39 AM [facility] NRBC Absolute <0.01 <0.01 x10(3)/mc L 08/04/2024 6:39 AM [facility] Neutrophil % 72.1 % 08/04/2024 6:39 AM [facility] Neutrophil Absolute (ANC) - Automated 5.24 1.70 - 6.10 x10(3)/mc L 08/04/2024 6:39 AM [facility] Lymph % 16.8 % 08/04/2024 6:39 AM [facility] Lymph Absolute 1.22 0.90 - 3.20 x10(3)/mc L 08/04/2024 6:39 AM [facility] Monocyte % 8.5 % 08/04/2024 6:39 AM [facility] Monocyte Absolute 0.62 0.30 - 0.90 x10(3)/mc L 08/04/2024 6:39 AM [facility] Eos % 1.9 % 08/04/2024 6:39 AM [facility] Eos Absolute 0.14 0.00 - 0.40 x10(3)/mc L 08/04/2024 6:39 AM [facility] Basophil % 0.4 % 08/04/2024 6:39 AM [facility] Baso Absolute <0.04 0.00 - 0.10 x10(3)/mc L 08/04/2024 6:39 AM [facility] Immature Gran % 0.3 % 6:39 AM [facility] Immature Gran Absolute <0.04 0.00 - 0.04 x10(3)/mc L 08/04/2024 6:39 AM EST [facility] Blood VENOUS BLOOD SPECIMEN / Unknown Venipuncture / Unknown 08/04/2024 6:08 AM EST 08/04/2024 6:19 AM EST Bridgette Stauffer MD HEMATOLOGY ORDERABLE S Performing Organization Address City/[facility]/ZIP Co de Phone Number [facility] [place] [address] * Magnesium (08/04/2024 6:08 AM EST) Magnesium 0.85 0.69 - 1.07 mMol/L 08/04/2024 7:07 AM [facility] Blood VENOUS BLOOD SPECIMEN / Unknown Venipuncture / Unknown 08/04/2024 6:08 AM EST 08/04/2024 6:19 AM EST Bridgette Stauffer MD CHEMISTRY ORDERABLES Performing Organization Address City/[facility]/ZIP Co de Phone Number [facility] [place] [address] * Basic Metabolic Panel (08/04/2024 6:08 AM EST) Glucose 93 65 - 199 mg/dL 08/04/2024 7:07 AM [facility] Comment:Glucose Concentratio n >=200 mg/dL plus symptoms is consistent with Diabetes Mellitus. Blood Urea Nitrogen 14 10 - 20 mg/dL 08/04/2024 7:07 AM [facility] Creatinine 1.07 0.80 - 1.50 mg/dL 08/04/2024 7:07 AM [facility] Sodium 138 135 - 145 mMol/L 08/04/2024 7:07 AM [facility] Potassium 4.3 3.5 - 5.0 mMol/L 08/04/2024 7:07 AM [facility] Chloride 107 98 - 107 mMol/L 08/04/2024 7:07 AM [facility] Carbon Dioxide 23 22 - 31 mMol/L 08/04/2024 7:07 AM EST [facility] Anion Gap 8 5 - 15 mMol/L 08/04/2024 7:07 AM EST [facility] Calcium 8.5 8.5 - 10.5 mg/dL 08/04/2024 7:07 AM EST [facility] Est Glomerular Filtration Rate - Male 74 mL/min/1. 73 m?? 08/04/2024 7:07 AM EST [facility] Comment: This patient's estimated [...] AM EST Bridgette Stauffer MD CHEMISTRY ORDERABLES [facility] [place] [address] * (ABNORMAL) CBC (with Diff) (08/03/2024 5:16 AM EST) White Blood Cell 7.85 4.00 - 9.50 x10(3)/mc L 08/03/2024 5:29 AM EST [facility] Red Blood Cell 4.43(L) 4.58 - 5.54 x10(6)/mc L 08/03/2024 5:29 AM EST [facility] Hemoglobin 11.8(L) 13.7 - 16.5 g/dL 08/03/2024 5:29 AM EST [facility] Hematocrit 35.9(L) 40.5 - 48.5 % 08/03/2024 5:29 AM [facility] Mean Cell Volume 81.0(L) 82.9 - 93.1 fL 08/03/2024 5:29 AM [facility] Mean Cell Hemoglobin 26.6(L) 27.5 - 32.1 pg 08/03/2024 5:29 AM [facility] Mean Cell Hemoglobin Concentration 32.9 32.0 - 35.7 g/dL 08/03/2024 5:29 AM [facility] Platelet 142(L) 145 - 357 x10(3)/mc L 08/03/2024 5:29 AM [facility] Mean Platelet Volume 10.5 7.6 - 12.9 fL 08/03/2024 5:29 AM [facility] RDW Standard Deviation 42.5 36.0 - 45.0 fL 08/03/2024 5:29 AM [facility] RDW coefficient of variation 14.2(H) 11.4 - 13.8 % 08/03/2024 5:29 AM [facility] NRBC% auto 0.0 % 08/03/2024 5:29 AM [facility] NRBC Absolute <0.01 <0.01 x10(3)/mc L 08/03/2024 5:29 AM [facility] Neutrophil % 75.2 % 08/03/2024 5:29 AM [facility] Neutrophil Absolute (ANC) - Automated 5.91 1.70 - 6.10 x10(3)/mc L 08/03/2024 5:29 AM [facility] Lymph % 13.4 % 08/03/2024 5:29 AM [facility] Lymph Absolute 1.05 0.90 - 3.20 x10(3)/mc L 08/03/2024 5:29 AM [facility] Monocyte % 9.0 % 08/03/2024 5:29 AM [facility] Monocyte Absolute 0.71 0.30 - 0.90 x10(3)/mc L 08/03/2024 5:29 AM [facility] Eos % 1.7 % 08/03/2024 5:29 AM [facility] Eos Absolute 0.13 0.00 - 0.40 x10(3)/mc L 08/03/2024 5:29 AM [facility] Basophil % 0.4 % 08/03/2024 5:29 AM [facility] Baso Absolute <0.04 0.00 - 0.10 x10(3)/mc L 08/03/2024 5:29 AM [facility] Immature Gran % 0.3 % 5:29 AM [facility] Immature Gran Absolute <0.04 0.00 - 0.04 x10(3)/mc L 08/03/2024 5:29 AM [facility] Blood VENOUS BLOOD SPECIMEN / Unknown Venipuncture / Unknown 08/03/2024 5:16 AM EST 08/03/2024 5:23 AM EST Bridgette Stauffer MD HEMATOLOGY ORDERABLE S [facility] [place] [address] * Magnesium (08/03/2024 5:16 AM EST) Magnesium 0.89 0.69 - 1.07 mMol/L 08/03/2024 5:56 AM [facility] Blood VENOUS BLOOD SPECIMEN / Unknown Venipuncture / Unknown 08/03/2024 5:16 AM EST 08/03/2024 5:23 AM EST Bridgette Stauffer MD CHEMISTRY ORDERABLES [facility] [place] [address] * (ABNORMAL) Basic Metabolic Panel (08/03/2024 5:16 AM EST) Glucose 98 65 - 199 mg/dL 08/03/2024 5:56 AM [facility] Comment:Glucose Concentratio n >=200 mg/dL plus symptoms is consistent with Diabetes Mellitus. Blood Urea Nitrogen 16 10 - 20 mg/dL 08/03/2024 5:56 AM [facility] Creatinine 0.85 0.80 - 1.50 mg/dL 08/03/2024 5:56 AM [facility] Sodium 137 135 - 145 mMol/L 08/03/2024 5:56 AM [facility] Potassium 4.5 3.5 - 5.0 mMol/L 08/03/2024 5:56 AM [facility] Chloride 106 98 - 107 mMol/L 08/03/2024 5:56 AM [facility] Carbon Dioxide 21(L) 22 - 31 mMol/L 08/03/2024 5:56 AM [facility] Anion Gap 10 5 - 15 mMol/L 08/03/2024 5:56 AM [facility] Calcium 8.3(L) 8.5 - 10.5 mg/dL 08/03/2024 5:56 AM [facility] Est Glomerular Filtration Rate - Male 92 mL/min/1. 73 m?? 08/03/2024 5:56 AM [facility] Comment: This patient's estimated GFR was [...] Stauffer MD CHEMISTRY ORDERABLES Performing Organization Address [facility]/ZIP Co de Phone Number [facility] [place] [address] * POC, GLUCOSE (08/02/2024 7:47 AM EST) [facility] Glucometer, POC 89 65 - 199 mg/dL 08/02/2024 7:47 AM EST [facility] Comment:Supplemental ranges: <140 mg/dL before meals <180 mg/dL all other times of the day. Blood CAPILLARY BLOOD / Unknown 08/02/2024 7:47 AM EST 08/02/2024 7:47 AM EST Krystal Parker MD POINT OF CARE TEST O RDERABLES Performing Organization Address [facility] Co de Phone Number [facility] [place] [address] * (ABNORMAL) CBC (with Diff) (08/02/2024 4:20 AM EST) [facility] White Blood Cell 8.51 4.00 - 9.50 x10(3)/mc L 08/02/2024 4:50 AM [facility] Red Blood Cell 4.41(L) 4.58 - 5.54 x10(6)/mc L 08/02/2024 4:50 AM [facility] Hemoglobin 12.2(L) 13.7 - 16.5 g/dL 08/02/2024 4:50 AM [facility] Hematocrit 35.8(L) 40.5 - 48.5 % 08/02/2024 4:50 AM [facility] Mean Cell Volume 81.2(L) 82.9 - 93.1 fL 08/02/2024 4:50 AM [facility] Mean Cell Hemoglobin 27.7 27.5 - 32.1 pg 08/02/2024 4:50 AM [facility] Mean Cell Hemoglobin Concentration 34.1 32.0 - 35.7 g/dL 08/02/2024 4:50 AM [facility] Platelet 111(L) 145 - 357 x10(3)/mc L 08/02/2024 4:50 AM [facility] Mean Platelet Volume 11.1 7.6 - 12.9 fL 08/02/2024 4:50 AM [facility] RDW Standard Deviation 41.9 36.0 - 45.0 fL 08/02/2024 4:50 AM [facility] RDW coefficient of variation 14.1(H) 11.4 - 13.8 % 08/02/2024 4:50 AM [facility] NRBC% auto 0.0 % 08/02/2024 4:50 AM [facility] NRBC Absolute <0.01 <0.01 x10(3)/mc L 08/02/2024 4:50 AM [facility] Neutrophil % 77.7 % 08/02/2024 4:50 AM [facility] Neutrophil Absolute (ANC) - Automated 6.62(H) 1.70 - 6.10 x10(3)/mc L 08/02/2024 4:50 AM [facility] Lymph % 11.9 % 08/02/2024 4:50 AM [facility] Lymph Absolute 1.01 0.90 - 3.20 x10(3)/mc L 08/02/2024 4:50 AM [facility] Monocyte % 8.2 % 08/02/2024 4:50 AM [facility] Monocyte Absolute 0.70 0.30 - 0.90 x10(3)/mc L 08/02/2024 4:50 AM [facility] Eos % 1.4 % 08/02/2024 4:50 AM [facility] Eos Absolute 0.12 0.00 - 0.40 x10(3)/mc L 08/02/2024 4:50 AM EST [facility] Basophil % 0.4 % 08/02/2024 4:50 AM [facility] Baso Absolute <0.04 0.00 - 0.10 x10(3)/mc L 08/02/2024 4:50 AM [facility] Immature Gran % 0.4 % 4:50 AM [facility] Immature Gran Absolute <0.04 0.00 - 0.04 x10(3)/mc L 08/02/2024 4:50 AM [facility] Blood VENOUS BLOOD SPECIMEN / Unknown Venipuncture / Unknown 08/02/2024 4:20 AM EST 08/02/2024 4:37 AM EST Bridgette Stauffer MD HEMATOLOGY ORDERABLE S Performing Organization Address City/[facility]/ZIP Co de Phone Number [facility] [place] [address] * Magnesium (08/02/2024 4:20 AM EST) Magnesium 0.79 0.69 - 1.07 mMol/L 08/02/2024 5:06 AM [facility] Blood VENOUS BLOOD SPECIMEN / Unknown Venipuncture / Unknown 08/02/2024 4:20 AM EST 08/02/2024 4:37 AM EST Bridgette Stauffer MD CHEMISTRY ORDERABLES [facility] [place] [address] * (ABNORMAL) Basic Metabolic Panel (08/02/2024 4:20 AM EST) Glucose 110 65 - 199 mg/dL 08/02/2024 5:06 AM [facility] Comment:Glucose Concentratio n >=200 mg/dL plus symptoms is consistent with Diabetes Mellitus. Blood Urea Nitrogen 12 10 - 20 mg/dL 08/02/2024 5:06 AM [facility] Creatinine 0.90 0.80 - 1.50 mg/dL 08/02/2024 5:06 AM [facility] Sodium 139 135 - 145 mMol/L 08/02/2024 5:06 AM [facility] Potassium 4.0 3.5 - 5.0 mMol/L 08/02/2024 5:06 AM [facility] Chloride 108(H) 98 - 107 mMol/L 08/02/2024 5:06 AM [facility] Carbon Dioxide 23 22 - 31 mMol/L 08/02/2024 5:06 AM [facility] Anion Gap 8 5 - 15 mMol/L 08/02/2024 5:06 AM [facility] Calcium 8.1(L) 8.5 - 10.5 mg/dL 08/02/2024 5:06 AM [facility] Est Glomerular Filtration Rate - Male 91 mL/min/1. 73 m?? 08/02/2024 5:06 AM [facility] Comment: This patient's estimated GFR was [...] AM EST Bridgette Stauffer MD CHEMISTRY ORDERABLES [facility] [place] [address] * Potassium (08/01/2024 8:39 PM EST) Potassium 4.0 3.5 - 5.0 mMol/L 08/01/2024 9:21 PM EST [facility] Blood VENOUS BLOOD SPECIMEN / Unknown Venipuncture / Unknown 08/01/2024 8:39 PM EST 08/01/2024 8:51 PM EST Aubree Silverio MD CHEMISTRY ORDERABL ES Performing Organization Address City/[facility]/ZIP Co de Phone Number [facility] [place] [address] * POC, GLUCOSE (08/01/2024 8:35 PM EST) Glucometer, POC 112 65 - 199 mg/dL 08/01/2024 8:36 PM EST [facility] Comment:Supplemental ranges: <140 mg/dL before meals <180 mg/dL all other times of the day. Blood CAPILLARY BLOOD / Unknown 08/01/2024 8:35 PM EST 08/01/2024 8:36 PM EST Krystal Parker MD POINT OF CARE TEST O RDKAY Performing Organization Address [facility] Co de Phone Number [facility] [place] [address] * POC, GLUCOSE (08/01/2024 4:55 PM EST) Glucometer, POC 99 65 - 199 mg/dL 08/01/2024 4:56 PM EST [facility] Comment:Supplemental ranges: <140 mg/dL before meals <180 mg/dL all other times of the day. Blood CAPILLARY BLOOD / Unknown 08/01/2024 4:55 PM EST 08/01/2024 4:56 PM EST Krystal Parker MD POINT OF CARE TEST O RDKAY Performing Organization Address City/[facility]/ZIP Co de Phone Number [facility] [place] [address] * POC, GLUCOSE (08/01/2024 12:42 PM EST) Glucometer, POC 130 65 - 199 mg/dL 08/01/2024 12:43 PM EST [facility] Comment:Supplemental ranges: <140 mg/dL before meals <180 mg/dL all other times of the day. Blood CAPILLARY BLOOD / Unknown 08/01/2024 12:42 PM EST 08/01/2024 12:43 PM EST Krystal Parker MD POINT OF CARE TEST O RDERASHAY [facility] [place] [address] * (ABNORMAL) Cooximetry, POC (08/01/2024 10:45 AM EST) Pathologist [facility] pO2, Coox 32 mmHg 08/01/2024 10:48 AM [facility] Hemoglobin, Coox 12.9(L) 13.7 - 16.5 g/dL 08/01/2024 10:48 AM [facility] Oxyhemoglobin, Coox 66.7 % 08/01/2024 10:48 AM [facility] Carboxyhemoglo bin, Coox 1.1 % 08/01/2024 10:48 AM [facility] Comment: Nonsmokers: 0.5-1.5% COHB ?? Smokers: Variable ??but usually less than 10% ?? Toxic: 20-30% COHB ?? Lethal: Greater than 60% COHB Methemoglobin, Coox 0.3 <=1.5 % 08/01/2024 10:48 AM [facility] Blood (Mixed Venous) 08/01/2024 10:45 AM EST 08/01/2024 10:48 AM EST Krystal Parker MD POINT OF CARE TEST O RDERABLES Performing Organization Address City/[facility]/ZIP Co de Phone Number [facility] [place] [address] * Potassium (08/01/2024 8:20 AM EST) Pathologist [facility] Potassium 4.0 3.5 - 5.0 mMol/L 08/01/2024 10:17 AM EST [facility] Blood ARTERIAL BLOOD / Unknown Venipuncture / Unknown 08/01/2024 8:20 AM EST 08/01/2024 8:30 AM EST Aubree Silverio MD CHEMISTRY ORDERABL ES Performing Organization Address City/[facility]/ZIP Co de Phone Number [facility] [place] [address] * POC, GLUCOSE (08/01/2024 7:44 AM EST) [facility] Glucometer, POC 86 65 - 199 mg/dL 08/01/2024 7:44 AM EST [facility] Comment:Supplemental ranges: <140 mg/dL before meals <180 mg/dL all other times of the day. Blood CAPILLARY BLOOD / Unknown 08/01/2024 7:44 AM EST 08/01/2024 7:44 AM EST Krystal Parker MD POINT OF CARE TEST O RDERABLES Performing Organization Address City/[facility]/ZIP Co de Phone Number [facility] [place] [address] * (ABNORMAL) CBC (with Diff) (08/01/2024 4:18 AM EST) [facility] White Blood Cell 8.51 4.00 - 9.50 x10(3)/mc L 08/01/2024 4:53 AM EST [facility] Red Blood Cell 4.12(L) 4.58 - 5.54 x10(6)/mc L 08/01/2024 4:53 AM EST [facility] Hemoglobin 11.2(L) 13.7 - 16.5 g/dL 08/01/2024 4:53 AM EST [facility] Hematocrit 33.8(L) 40.5 - 48.5 % 08/01/2024 4:53 AM [facility] Mean Cell Volume 82.0(L) 82.9 - 93.1 fL 08/01/2024 4:53 AM [facility] Mean Cell Hemoglobin 27.2(L) 27.5 - 32.1 pg 08/01/2024 4:53 AM [facility] Mean Cell Hemoglobin Concentration 33.1 32.0 - 35.7 g/dL 08/01/2024 4:53 AM [facility] Platelet 94(L) 145 - 357 x10(3)/mc L 08/01/2024 4:53 AM [facility] Mean Platelet Volume 10.9 7.6 - 12.9 fL 08/01/2024 4:53 AM [facility] RDW Standard Deviation 44.2 36.0 - 45.0 fL 08/01/2024 4:53 AM [facility] RDW coefficient of variation 14.7(H) 11.4 - 13.8 % 08/01/2024 4:53 AM [facility] NRBC% auto 0.0 % 08/01/2024 4:53 AM [facility] NRBC Absolute <0.01 <0.01 x10(3)/mc L 08/01/2024 4:53 AM [facility] Neutrophil % 82.7 % 08/01/2024 4:53 AM [facility] Neutrophil Absolute (ANC) - Automated 7.04(H) 1.70 - 6.10 x10(3)/mc L 08/01/2024 4:53 AM [facility] Lymph % 8.6 % 08/01/2024 4:53 AM [facility] Lymph Absolute 0.73(L) 0.90 - 3.20 x10(3)/mc L 08/01/2024 4:53 AM [facility] Monocyte % 7.6 % 08/01/2024 4:53 AM [facility] Monocyte Absolute 0.65 0.30 - 0.90 x10(3)/mc L 08/01/2024 4:53 AM [facility] Eos % 0.5 % 08/01/2024 4:53 AM [facility] Eos Absolute 0.04 0.00 - 0.40 x10(3)/mc L 08/01/2024 4:53 AM [facility] Basophil % 0.2 % 08/01/2024 4:53 AM [facility] Baso Absolute <0.04 0.00 - 0.10 x10(3)/mc L 08/01/2024 4:53 AM [facility] Immature Gran % 0.4 % 4:53 AM [facility] Immature Gran Absolute <0.04 0.00 - 0.04 x10(3)/mc L 08/01/2024 4:53 AM [facility] Blood VENOUS BLOOD SPECIMEN / Unknown Venipuncture / Unknown 08/01/2024 4:18 AM EST 08/01/2024 4:29 AM EST Bridgette Stauffer MD HEMATOLOGY ORDERABLE S [facility] [place] [address] * Magnesium (08/01/2024 4:18 AM EST) Magnesium 0.74 0.69 - 1.07 mMol/L 08/01/2024 5:00 AM [facility] Blood VENOUS BLOOD SPECIMEN / Unknown Venipuncture / Unknown 08/01/2024 4:18 AM EST 08/01/2024 4:29 AM EST Bridgette Stauffer MD CHEMISTRY ORDERABLES [facility] [place] [address] * (ABNORMAL) Basic Metabolic Panel (08/01/2024 4:18 AM EST) Glucose 107 65 - 199 mg/dL 08/01/2024 5:00 AM [facility] Comment:Glucose Concentratio n >=200 mg/dL plus symptoms is consistent with Diabetes Mellitus. Blood Urea Nitrogen 8(L) 10 - 20 mg/dL 08/01/2024 5:00 AM [facility] Creatinine 0.82 0.80 - 1.50 mg/dL 08/01/2024 5:00 AM [facility] Sodium 137 135 - 145 mMol/L 08/01/2024 5:00 AM [facility] Potassium 3.9 3.5 - 5.0 mMol/L 08/01/2024 5:00 AM [facility] Chloride 108(H) 98 - 107 mMol/L 08/01/2024 5:00 AM [facility] Carbon Dioxide 21(L) 22 - 31 mMol/L 08/01/2024 5:00 AM [facility] Anion Gap 8 5 - 15 mMol/L 08/01/2024 5:00 AM [facility] Calcium 7.7(L) 8.5 - 10.5 mg/dL 08/01/2024 5:00 AM [facility] Est Glomerular Filtration Rate - Male 93 mL/min/1. 73 m?? 08/01/2024 5:00 AM [facility] Comment: This patient's estimated GFR was [...] Stauffer MD CHEMISTRY ORDERABLES Performing Organization Address [facility] de Phone Number [facility] [place] [address] * POC, GLUCOSE (07/31/2024 8:41 PM EST) [facility] Signature Glucometer, POC 73 65 - 199 mg/dL 07/31/2024 8:41 PM EST [facility] Comment:Supplemental ranges: <140 mg/dL before meals <180 mg/dL all other times of the day. Blood CAPILLARY BLOOD / Unknown 07/31/2024 8:41 PM EST 07/31/2024 8:41 PM EST Krystal Parker MD POINT OF CARE TEST O RDERABLES Performing Organization Address [facility] de Phone Number [facility] [place] [address] * CARDIAC CATHETERIZATION (07/31/2024 5:53 PM EST) Anatomical Region Laterality Modality Other Narrative 08/01/2024 12:37 PM EST ?[facility] ? Cardiac Catheterization/Intervention Report ? Patient Name: Korey MontoyaToby ? Procedure Date: 07/31/2024 ? A #: [id number] ? Primary Physician: Maldonado Luis ? Case #: [id number] ? File Name: [id number] ? Catheterization Order Number: [id number] ? [facility] ? Final Report [place], [place] ? Patient Name: ? Korey P. Montoya ?ID#: ?[id number] ? : ?1950 ? Procedure Date: ? [...] ? 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 ??Good [...] Maldonado Luis MD - 08/01/2024 [facility] Cardiac Catheterization/Intervention Report Patient Name: Korey MontoyaToby Procedure Date: 07/31/2024 A #: [id number] Primary Physician: Maldonado Luis Case #: [id number] File Name: [id number] Catheterization Order Number: [id number] [facility] FinalReport [place], [place] Patient Name: Korey Montoya ID#:[id number] :1950 Procedure Date: July 31, 2024 Case [...] was designated as ASA Class IV. [facility] clinical frailtyscale is 4: [...] procedures. 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 Good [...] - 199 mg/dL 07/31/2024 11:04 AM EST [facility] Comment:Supplemental ranges: <140 mg/dL before meals <180 mg/dL all other times of the day. Blood CAPILLARY BLOOD / Unknown 07/31/2024 11:04 AM EST 07/31/2024 11:04 AM EST Krystal Parker MD POINT OF CARE TEST O RDERABLES Performing Organization Address City/State/[facility] Co de Phone Number [facility] [place] [address] * (ABNORMAL) Blood Gas, Arterial POC (07/31/2024 8:29 AM EST) pH, Arterial 7.48(H) 7.35 - 7.45 07/31/2024 8:30 AM [facility] PCO2, Arterial 29(L) 35 - 45 mmHg 07/31/2024 8:30 AM [facility] PO2, Arterial 71(L) 85 - 104 mmHg 07/31/2024 8:30 AM [facility] Bicarbonate, Arterial 20.6 20.0 - 26.0 mmol/L 07/31/2024 8:30 AM [facility] Base Excess, Arterial -3.0 -3.0 - 3.0 mmol/L 07/31/2024 8:30 AM [facility] Hemoglobin, Arterial 12.3(L) 13.7 - 16.5 g/dL 07/31/2024 8:30 AM [facility] Oxyhemoglobin, Arterial 94.4 94.0 - 97.0 % 07/31/2024 8:30 AM [facility] Carboxyhemoglobin , Arterial 0.7 % 07/31/2024 8:30 AM [facility] Comment: Nonsmokers: 0.5-1.5% COHB ?? Smokers: Variable ??but usually less than 10% ?? Toxic: 20-30% COHB ?? Lethal: Greater than 60% COHB Methemoglobin, Arterial 0.3 <=1.5 % 07/31/2024 8:30 AM [facility] Sodium, Arterial 138 135 - 145 mmol/L 07/31/2024 8:30 AM [facility] Potassium, Arterial 3.5 3.5 - 5.0 mmol/L 07/31/2024 8:30 AM [facility] Chloride, Arterial 109(H) 98 - 107 mmol/L 07/31/2024 8:30 AM [facility] Lactate, Arterial 0.8 0.5 - 2.2 mmol/L 07/31/2024 8:30 AM [facility] Fraction of Inspired Oxygen 21 % 07/31/2024 8:30 AM [facility] PF Ratio 338 Ratio 07/31/2024 8:30 AM [facility] Comment:PF ratio calculated using the non-temperature corrected pO2 result. IONIZED CALCIUM, ARTERIAL 1.08(L) 1.15 - 1.33 mmol/L 07/31/2024 8:30 AM [facility] Glucose, Arterial 86 65 - 199 mg/dL 07/31/2024 8:30 AM EST [facility] Comment:Glucose Concentratio n >=200 mg/dL plus symptoms is consistent with Diabetes Mellitus. Blood ARTERIAL BLOOD / Unknown 07/31/2024 8:29 AM EST 07/31/2024 8:30 AM EST Krystal Parker MD POINT OF CARE TEST O RDERABLES [facility] [place] [address] * POC, GLUCOSE (07/31/2024 7:47 AM EST) Glucometer, POC 82 65 - 199 mg/dL 07/31/2024 7:53 AM EST [facility] Comment:Supplemental ranges: <140 mg/dL before meals <180 mg/dL all other times of the day. Blood CAPILLARY BLOOD / Unknown 07/31/2024 7:47 AM EST 07/31/2024 7:53 AM EST Krystal Parker MD POINT OF CARE TEST O RDERABLES [facility] [place] [address] * (ABNORMAL) CBC (with Diff) (07/31/2024 1:08 AM EST) [facility] White Blood Cell 10.25(H) 4.00 - 9.50 x10(3)/mc L 07/31/2024 1:28 AM [facility] Red Blood Cell 4.13(L) 4.58 - 5.54 x10(6)/mc L 07/31/2024 1:28 AM [facility] Hemoglobin 11.2(L) 13.7 - 16.5 g/dL 07/31/2024 1:28 AM [facility] Hematocrit 33.9(L) 40.5 - 48.5 % 07/31/2024 1:28 AM [facility] Mean Cell Volume 82.1(L) 82.9 - 93.1 fL 07/31/2024 1:28 AM [facility] Mean Cell Hemoglobin 27.1(L) 27.5 - 32.1 pg 07/31/2024 1:28 AM [facility] Mean Cell Hemoglobin Concentration 33.0 32.0 - 35.7 g/dL 07/31/2024 1:28 AM [facility] Platelet 109(L) 145 - 357 x10(3)/mc L 07/31/2024 1:28 AM [facility] Mean Platelet Volume 10.4 7.6 - 12.9 fL 07/31/2024 1:28 AM [facility] RDW Standard Deviation 45.1(H) 36.0 - 45.0 fL 07/31/2024 1:28 AM [facility] RDW coefficient of variation 15.1(H) 11.4 - 13.8 % 07/31/2024 1:28 AM [facility] NRBC% auto 0.0 % 07/31/2024 1:28 AM [facility] NRBC Absolute <0.01 <0.01 x10(3)/mc L 07/31/2024 1:28 AM [facility] Neutrophil % 79.7 % 07/31/2024 1:28 AM [facility] Neutrophil Absolute (ANC) - Automated 8.17(H) 1.70 - 6.10 x10(3)/mc L 07/31/2024 1:28 AM [facility] Lymph % 12.8 % 07/31/2024 1:28 AM [facility] Lymph Absolute 1.31 0.90 - 3.20 x10(3)/mc L 07/31/2024 1:28 AM [facility] Monocyte % 6.9 % 07/31/2024 1:28 AM [facility] Monocyte Absolute 0.71 0.30 - 0.90 x10(3)/mc L 07/31/2024 1:28 AM [facility] Eos % 0.1 % 07/31/2024 1:28 AM [facility] Eos Absolute <0.04 0.00 - 0.40 x10(3)/mc L 07/31/2024 1:28 AM [facility] Basophil % 0.3 % 07/31/2024 1:28 AM [facility] Baso Absolute <0.04 0.00 - 0.10 x10(3)/mc L 07/31/2024 1:28 AM [facility] Immature Gran % 0.2 % 1:28 AM EST [facility] Immature Gran Absolute <0.04 0.00 - 0.04 x10(3)/mc L 07/31/2024 1:28 AM [facility] Blood VENOUS BLOOD SPECIMEN / Unknown Venipuncture / Unknown 07/31/2024 1:08 AM EST 07/31/2024 1:18 AM EST Bridgette Stauffer MD HEMATOLOGY ORDERABLE S Performing Organization Address [facility] Co de Phone Number [facility] [place] [address] * Magnesium (07/31/2024 1:08 AM EST) Pathologist [facility] Magnesium 0.89 0.69 - 1.07 mMol/L 07/31/2024 1:46 AM [facility] Blood VENOUS BLOOD SPECIMEN / Unknown Venipuncture / Unknown 07/31/2024 1:08 AM EST 07/31/2024 1:18 AM EST Bridgette Stauffer MD CHEMISTRY ORDERABLES Performing Organization Address City/[facility] Co de Phone Number [facility] [place] [address] * (ABNORMAL) Basic Metabolic Panel (07/31/2024 1:08 AM EST) Pathologist [facility] Glucose 97 65 - 199 mg/dL 07/31/2024 1:46 AM [facility] Comment:Glucose Concentratio n >=200 mg/dL plus symptoms is consistent with Diabetes Mellitus. Blood Urea Nitrogen 11 10 - 20 mg/dL 07/31/2024 1:46 AM [facility] Creatinine 0.96 0.80 - 1.50 mg/dL 07/31/2024 1:46 AM [facility] Sodium 140 135 - 145 mMol/L 07/31/2024 1:46 AM [facility] Potassium 4.1 3.5 - 5.0 mMol/L 07/31/2024 1:46 AM EST [facility] Chloride 110(H) 98 - 107 mMol/L 07/31/2024 1:46 AM EST [facility] Carbon Dioxide 24 22 - 31 mMol/L 07/31/2024 1:46 AM [facility] Anion Gap 6 5 - 15 mMol/L 07/31/2024 1:46 AM [facility] Calcium 7.7(L) 8.5 - 10.5 mg/dL 07/31/2024 1:46 AM [facility] Est Glomerular Filtration Rate - Male 84 mL/min/1. 73 m?? 07/31/2024 1:46 AM [facility] Comment: This patient's estimated GFR was [...] AM EST Bridgette Stauffer MD CHEMISTRY ORDERABLES [facility] [place] [address] * (ABNORMAL) Hepatic Function Panel (07/31/2024 1:08 AM EST) Albumin 3.1(L) 3.2 - 5.2 g/dL 07/31/2024 1:46 AM EST [facility] Aspartate Aminotransferase 192(H) <=39 unit/L 07/31/2024 1:46 AM EST [facility] Alanine Aminotransferase 59(H) 0 - 55 unit/L 07/31/2024 1:46 AM EST [facility] Alkaline Phosphatase 46 40 - 130 unit/L 07/31/2024 1:46 AM [facility] Bilirubin, Total 0.4 <=1.3 mg/dL 07/31/2024 1:46 AM [facility] Bilirubin, Direct <0.2 0.0 - 0.3 mg/dL 07/31/2024 1:46 AM [facility] Protein, Total 5.0(L) 6.1 - 8.0 g/dL 07/31/2024 1:46 AM [facility] Blood VENOUS BLOOD SPECIMEN / Unknown Venipuncture / Unknown 07/31/2024 1:08 AM EST 07/31/2024 1:18 AM EST Krystal Praker MD CHEMISTRY ORDERABLES Performing Organization Address City/[facility] Co de Phone Number [facility] [place] [address] * POC, GLUCOSE (07/30/2024 8:03 PM EST) Glucometer, POC 86 65 - 199 mg/dL 07/30/2024 8:03 PM EST [facility] Comment:Supplemental ranges: <140 mg/dL before meals <180 mg/dL all other times of the day. Blood CAPILLARY BLOOD / Unknown 07/30/2024 8:03 PM EST 07/30/2024 8:03 PM EST Krystal Parker MD POINT OF CARE TEST O RDERABLES Performing Organization Address City/[facility]/ZIP Co de Phone Number [facility] [place] [address] * Potassium (07/30/2024 8:03 PM EST) Potassium 3.8 3.5 - 5.0 mMol/L 07/30/2024 9:13 PM EST [facility] Blood VENOUS BLOOD SPECIMEN / Unknown Venipuncture / Unknown 07/30/2024 8:03 PM EST 07/30/2024 8:22 PM EST Aubree Silverio MD CHEMISTRY ORDERABL ES Performing Organization Address [facility]/ZIP Co de Phone Number [facility] [place] [address] * POC, GLUCOSE (07/30/2024 6:23 PM EST) Glucometer, POC 93 65 - 199 mg/dL 07/30/2024 6:24 PM EST [facility] Comment:Supplemental ranges: <140 mg/dL before meals <180 mg/dL all other times of the day. Blood CAPILLARY BLOOD / Unknown 07/30/2024 6:23 PM EST 07/30/2024 6:24 PM EST Krystal Parker MD POINT OF CARE TEST O JOSH Performing Organization Address [facility] Co de Phone Number [facility] [place] [address] * POC, GLUCOSE (07/30/2024 5:08 PM EST) Glucometer, POC 78 65 - 199 mg/dL 07/30/2024 5:08 PM EST [facility] Comment:Supplemental ranges: <140 mg/dL before meals <180 mg/dL all other times of the day. Blood CAPILLARY BLOOD / Unknown 07/30/2024 5:08 PM EST 07/30/2024 5:08 PM EST Krystal Parker MD POINT OF CARE TEST O JOSH Performing Organization Address [facility] Co de Phone Number [facility] [place] [address] * (ABNORMAL) Phosphorus (07/30/2024 3:08 PM EST) Phosphorus 2.1(L) 2.5 - 4.5 mg/dL 07/30/2024 3:58 PM EST [facility] Blood VENOUS BLOOD SPECIMEN / Unknown Venipuncture / Unknown 07/30/2024 3:08 PM EST 07/30/2024 3:12 PM EST Aubree Silverio MD CHEMISTRY ORDERABL ES Performing Organization Address [facility]/ZIP Co de Phone Number [facility] [place] [address] * Magnesium (07/30/2024 3:08 PM EST) Magnesium 0.90 0.69 - 1.07 mMol/L 07/30/2024 3:58 PM EST [facility] Blood VENOUS BLOOD SPECIMEN / Unknown Venipuncture / Unknown 07/30/2024 3:08 PM EST 07/30/2024 3:12 PM EST Aubree Silverio MD CHEMISTRY ORDERABL ES Performing Organization Address City/[facility]/ZIP Co de Phone Number [facility] [place] [address] * (ABNORMAL) Basic Metabolic Panel (07/30/2024 3:08 PM EST) Glucose 105 65 - 199 mg/dL 07/30/2024 4:17 PM [facility] Comment:Glucose Concentratio n >=200 mg/dL plus symptoms is consistent with Diabetes Mellitus. Blood Urea Nitrogen 13 10 - 20 mg/dL 07/30/2024 4:17 PM EST [facility] Creatinine 1.01 0.80 - 1.50 mg/dL 07/30/2024 4:17 PM [facility] Sodium 141 135 - 145 mMol/L 07/30/2024 4:17 PM [facility] Potassium 3.4(L) 3.5 - 5.0 mMol/L 07/30/2024 4:17 PM [facility] Chloride 109(H) 98 - 107 mMol/L 07/30/2024 4:17 PM [facility] Carbon Dioxide 21(L) 22 - 31 mMol/L 07/30/2024 4:17 PM EST [facility] Anion Gap 11 5 - 15 mMol/L 07/30/2024 4:17 PM EST [facility] Calcium 7.9(L) 8.5 - 10.5 mg/dL 07/30/2024 4:17 PM EST [facility] Est Glomerular Filtration Rate - Male 79 mL/min/1. 73 m?? 07/30/2024 4:17 PM EST [facility] Comment: This patient's estimated [...] EST Aubree Silverio MD CHEMISTRY ORDERABL ES [facility] [place] [address] * ECHO LMTD W CONTRAST W LMTD SPEC DOPP COLOR DOPP (07/30/2024 11:42 AM EST) Anatomical Region Laterality Modality Cardiac Other 07/30/2024 10:2 2 AM EST Narrative 07/30/2024 12:34 PM EST [address] [place] [address] ? Echocardiogram Report Name: KOREY MONTOYA ? Study Date: 07/30/2024 10:22 AMBP: 124/66 mmHg : 1950 ? Height: 168 cm ? Account: [id number] Age: 74 yrs ? Weight: 65 kg Gender: Male ?BSA: 1.7 m2 Ordering Physician: Aubree Silverio MD Referring Physician: CHAPARRO FERRERA Performed By: OMERO Millan Reason For Study: ST elevation myocardial infarction involving left anterior descending (LAD) coronary artery Interpreting Fellow: Ivan Hernandez. Exam Location: [facility]. Interpretation Summary Left ventricle is severely dilated. Mildly increased thickness of the basal septum with no obstruction to LV outflow. Left ventricular systolic function is moderately reduced. The left ventricular ejection fraction is 33% by Giordaon's biplane. There are segmental wall motion abnormalities. [...] Compared to the overnight study by the construction field engineer fellow the impella position is stable. 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 Procedure Limited - 98160. Image enhancement Definity was used for both [...] Procedure Note Kathleen Banda MD - 07/30/[address] [place] [id number] Echocardiogram Report Name: KOREY MONTOYA Kyrie Study Date: 410:22 AMBP: 124/66 mmHg : 1950 Height: 168 cm Account: [id number] Age: 74 yrs Weight: 65 kg Gender: Male BSA: 1.7 m2 Ordering Physician: Aubree Silverio MD Referring Physician: CHAPARRO FERRERA Performed By: OMERO Millan Reason For Study: ST elevation myocardial infarction involving leftanterior descending (LAD) coronary artery Interpreting Fellow: Ivan Hernandez. Exam Location: [facility]. Interpretation Summary Left ventricle is severely [...] Compared to the overnight study by the construction field engineer fellow the impella positionis stable. The global left ventricular systolic function has improvedpredominantly via recruitment outside the LAD territory which remains akinetic. Procedure Limited - 16473. Image enhancement Definity was used for both [...] 65 - 199 mg/dL 07/30/2024 11:17 AM [facility] Comment:Supplemental ranges: <140 mg/dL before meals <180 mg/dL all other times of the day. Blood CAPILLARY BLOOD / Unknown 07/30/2024 11:17 AM EST 07/30/2024 11:17 AM EST Aubree Silverio MD POINT OF CARE TEST ORDERABLES Performing Organization Address City/State/[facility] Co de Phone Number [facility] [place] [address] * (ABNORMAL) Blood Gas, Arterial POC (07/30/2024 8:16 AM EST) pH, Arterial 7.44 7.35 - 7.45 07/30/2024 8:17 AM [facility] PCO2, Arterial 29(L) 35 - 45 mmHg 07/30/2024 8:17 AM [facility] PO2, Arterial 109(H) 85 - 104 mmHg 07/30/2024 8:17 AM [facility] Bicarbonate, Arterial 19.4(L) 20.0 - 26.0 mmol/L 07/30/2024 8:17 AM [facility] Base Excess, Arterial -4.7(L) -3.0 - 3.0 mmol/L 07/30/2024 8:17 AM [facility] Hemoglobin, Arterial 12.2(L) 13.7 - 16.5 g/dL 07/30/2024 8:17 AM [facility] Oxyhemoglobin, Arterial 97.1(H) 94.0 - 97.0 % 07/30/2024 8:17 AM [facility] Carboxyhemoglob in, Arterial 1.0 % 07/30/2024 8:17 AM [facility] Comment: Nonsmokers: 0.5-1.5% COHB ?? Smokers: Variable ??but usually less than 10% ?? Toxic: 20-30% COHB ?? Lethal: Greater than 60% COHB Methemoglobin, Arterial 0.1 <=1.5 % 07/30/2024 8:17 AM [facility] Sodium, Arterial 132(L) 135 - 145 mmol/L 07/30/2024 8:17 AM [facility] Potassium, Arterial 3.9 3.5 - 5.0 mmol/L 07/30/2024 8:17 AM [facility] Chloride, Arterial 105 98 - 107 mmol/L 07/30/2024 8:17 AM [facility] Lactate, Arterial 1.2 0.5 - 2.2 mmol/L 07/30/2024 8:17 AM [facility] Fraction of Inspired Oxygen 21 % 07/30/2024 8:17 AM [facility] PF Ratio 519 Ratio 07/30/2024 8:17 AM [facility] Comment:PF ratio calculated using the non-temperature corrected pO2 result. IONIZED CALCIUM, ARTERIAL 1.15 1.15 - 1.33 mmol/L 07/30/2024 8:17 AM [facility] Blood ARTERIAL BLOOD / Unknown 07/30/2024 8:16 AM EST 07/30/2024 8:17 AM EST Aubree Silverio MD POINT OF CARE TEST ORDERABLES [facility] [place] [address] * (ABNORMAL) Troponin - Single (07/30/2024 8:09 AM EST) Troponin-T, High Sensitivity 8,651(H) <=22 ng/L 07/30/2024 9:06 AM EST [facility] Comment: This patient's troponin [...] in the [facility] Laboratory Test Catalog Troponin - [email or web address]/catalogs/565/files/[email or web address] Reference: Fourth [place] Definition of Myocardial Infarction. Journal of the [place] [employer] 2018;72:4215-5713 Blood VENOUS BLOOD SPECIMEN / Unknown Venipuncture / Unknown 07/30/2024 8:09 AM EST 07/30/2024 8:26 AM EST Aubree Silverio MD CHEMISTRY ORDERABL ES [facility] [place] [address] * POC, GLUCOSE (07/30/2024 7:40 AM EST) Shaheen Jc Glucometer, POC 111 65 - 199 mg/dL 07/30/2024 7:40 AM EST [facility] Comment:Supplemental ranges: <140 mg/dL before meals <180 mg/dL all other times of the day. Blood CAPILLARY BLOOD / Unknown 07/30/2024 7:40 AM EST 07/30/2024 7:40 AM EST Aubree Silverio MD POINT OF CARE TEST ORDERABLES [facility] [place] [address] * (ABNORMAL) CBC (with Diff) (07/30/2024 2:11 AM EST) White Blood Cell 11.25(H) 4.00 - 9.50 x10(3)/mc L 07/30/2024 2:33 AM [facility] Red Blood Cell 4.50(L) 4.58 - 5.54 x10(6)/mc L 07/30/2024 2:33 AM [facility] Hemoglobin 12.2(L) 13.7 - 16.5 g/dL 07/30/2024 2:33 AM [facility] Hematocrit 37.1(L) 40.5 - 48.5 % 07/30/2024 2:33 AM [facility] Mean Cell Volume 82.4(L) 82.9 - 93.1 fL 07/30/2024 2:33 AM [facility] Mean Cell Hemoglobin 27.1(L) 27.5 - 32.1 pg 07/30/2024 2:33 AM [facility] Mean Cell Hemoglobin Concentration 32.9 32.0 - 35.7 g/dL 07/30/2024 2:33 AM [facility] Platelet 166 145 - 357 x10(3)/mc L 07/30/2024 2:33 AM [facility] Mean Platelet Volume 10.6 7.6 - 12.9 fL 07/30/2024 2:33 AM [facility] RDW Standard Deviation 44.6 36.0 - 45.0 fL 07/30/2024 2:33 AM [facility] RDW coefficient of variation 14.6(H) 11.4 - 13.8 % 07/30/2024 2:33 AM [facility] NRBC% auto 0.0 % 07/30/2024 2:33 AM [facility] NRBC Absolute <0.01 <0.01 x10(3)/mc L 07/30/2024 2:33 AM [facility] Neutrophil % 88.9 % 07/30/2024 2:33 AM [facility] Neutrophil Absolute (ANC) - Automated 10.00(H) 1.70 - 6.10 x10(3)/mc L 07/30/2024 2:33 AM [facility] Lymph % 5.1 % 07/30/2024 2:33 AM [facility] Lymph Absolute 0.57(L) 0.90 - 3.20 x10(3)/mc L 07/30/2024 2:33 AM [facility] Monocyte % 5.4 % 07/30/2024 2:33 AM [facility] Monocyte Absolute 0.61 0.30 - 0.90 x10(3)/mc L 07/30/2024 2:33 AM [facility] [facility] Eos % 0.0 % 07/30/2024 2:33 AM [facility] Eos Absolute <0.04 0.00 - 0.40 x10(3)/mc L 07/30/2024 2:33 AM [facility] Basophil % 0.2 % 07/30/2024 2:33 AM [facility] Baso Absolute <0.04 0.00 - 0.10 x10(3)/mc L 07/30/2024 2:33 AM [facility] Immature Gran % 0.4 % 2:33 AM [facility] Immature Gran Absolute 0.05(H) 0.00 - 0.04 x10(3)/mc L 07/30/2024 2:33 AM [facility] Blood VENOUS BLOOD SPECIMEN / Unknown Venipuncture / Unknown 07/30/2024 2:11 AM EST 07/30/2024 2:22 AM EST Bridgette Stauffer MD HEMATOLOGY ORDERABLE S [facility] [place] [address] * Magnesium (07/30/2024 2:11 AM EST) Magnesium 1.01 0.69 - 1.07 mMol/L 07/30/2024 2:51 AM [facility] Blood VENOUS BLOOD SPECIMEN / Unknown Venipuncture / Unknown 07/30/2024 2:11 AM EST 07/30/2024 2:22 AM EST Bridgette Stauffer MD CHEMISTRY ORDERABLES Performing Organization Address City/[facility]/ZIP Co de Phone Number [facility] [place] [address] * (ABNORMAL) Basic Metabolic Panel (07/30/2024 2:11 AM EST) Pathologist [facility] Glucose 190 65 - 199 mg/dL 07/30/2024 2:51 AM [facility] Comment:Glucose Concentratio n >=200 mg/dL plus symptoms is consistent with Diabetes Mellitus. Blood Urea Nitrogen 15 10 - 20 mg/dL 07/30/2024 2:51 AM [facility] Creatinine 0.88 0.80 - 1.50 mg/dL 07/30/2024 2:51 AM [facility] Sodium 135 135 - 145 mMol/L 07/30/2024 2:51 AM [facility] Potassium 4.9 3.5 - 5.0 mMol/L 07/30/2024 2:51 AM [facility] Chloride 105 98 - 107 mMol/L 07/30/2024 2:51 AM [facility] Carbon Dioxide 19(L) 22 - 31 mMol/L 07/30/2024 2:51 AM [facility] Anion Gap 11 5 - 15 mMol/L 07/30/2024 2:51 AM EST [facility] Calcium 7.7(L) 8.5 - 10.5 mg/dL 07/30/2024 2:51 AM EST [facility] Est Glomerular Filtration Rate - Male 91 mL/min/1. 73 m?? 07/30/2024 2:51 AM EST [facility] Comment: This patient's estimated [...] AM EST Bridgette Stauffer MD CHEMISTRY ORDERABLES [facility] [place] [address] * (ABNORMAL) Cooximetry, POC (07/30/2024 1:00 AM EST) pO2, Coox 28 mmHg 07/30/2024 1:03 AM EST [facility] Hemoglobin, Coox 12.7(L) 13.7 - 16.5 g/dL 07/30/2024 1:03 AM EST [facility] Oxyhemoglobin, Coox 54.9 % 07/30/2024 1:03 AM [facility] Carboxyhemoglo bin, Coox 1.0 % 07/30/2024 1:03 AM [facility] Comment: Nonsmokers: 0.5-1.5% COHB ?? Smokers: Variable ??but usually less than 10% ?? Toxic: 20-30% COHB ?? Lethal: Greater than 60% COHB Methemoglobin, Coox 0.0 <=1.5 % 07/30/2024 1:03 AM [facility] Blood (Mixed Venous) 07/30/2024 1:00 AM EST 07/30/2024 1:03 AM EST Aubree Silverio MD POINT OF CARE TEST ORDERABLES Performing Organization Address City/State/[facility] Co de Phone Number [facility] [place] [address] * (ABNORMAL) Blood Gas, Arterial POC (07/30/2024 12:57 AM EST) pH, Arterial 7.38 7.35 - 7.45 07/30/2024 12:58 AM [facility] PCO2, Arterial 34(L) 35 - 45 mmHg 07/30/2024 12:58 AM [facility] PO2, Arterial 141(H) 85 - 104 mmHg 07/30/2024 12:58 AM [facility] Bicarbonate, Arterial 19.5(L) 20.0 - 26.0 mmol/L 07/30/2024 12:58 AM [facility] Base Excess, Arterial -5.6(L) -3.0 - 3.0 mmol/L 07/30/2024 12:58 AM [facility] Hemoglobin, Arterial 13.0(L) 13.7 - 16.5 g/dL 07/30/2024 12:58 AM [facility] Oxyhemoglobin, Arterial 98.4(H) 94.0 - 97.0 % 07/30/2024 12:58 AM [facility] Carboxyhemoglobin , Arterial 0.4 % 07/30/2024 12:58 AM [facility] Comment: Nonsmokers: 0.5-1.5% COHB ?? Smokers: Variable ??but usually less than 10% ?? Toxic: 20-30% COHB ?? Lethal: Greater than 60% COHB Methemoglobin, Arterial 0.1 <=1.5 % 07/30/2024 12:58 AM [facility] Sodium, Arterial 130(L) 135 - 145 mmol/L 07/30/2024 12:58 AM [facility] Potassium, Arterial 4.5 3.5 - 5.0 mmol/L 07/30/2024 12:58 AM [facility] Chloride, Arterial 104 98 - 107 mmol/L 07/30/2024 12:58 AM [facility] Lactate, Arterial 1.3 0.5 - 2.2 mmol/L 07/30/2024 12:58 AM [facility] Flow Rate 2.0 L/min 07/30/2024 12:58 AM [facility] IONIZED CALCIUM, ARTERIAL 1.12(L) 1.15 - 1.33 mmol/L 07/30/2024 12:58 AM [facility] Glucose, Arterial 184 65 - 199 mg/dL 07/30/2024 12:58 AM [facility] Comment:Glucose Concentratio n >=200 mg/dL plus symptoms is consistent with Diabetes Mellitus. Blood ARTERIAL BLOOD / Unknown 07/30/2024 12:57 AM EST 07/30/2024 12:58 AM EST Aubree Silverio MD POINT OF CARE TEST ORDERABLES [facility] [place] [address] * (ABNORMAL) Troponin - Single (07/29/2024 10:31 PM EST) Troponin-T, High Sensitivity >10,000(H ) <=22 ng/L 07/29/2024 11:03 PM [facility] Comment: This patient's troponin T concentration [...] in the [facility] Laboratory Test Catalog Troponin - [email or web address].testcatalog.org/catalogs/565/files/03496 Reference: Fourth Milton Definition of Myocardial Infarction. Journal of the [place] [employer] 2018;72:2301-4188 Blood VENOUS BLOOD SPECIMEN / Unknown Venipuncture / Unknown 07/29/2024 10:31 PM EST 07/29/2024 10:36 PM EST Yrn Ward MD CHEMISTRY ORDERABL ES Performing Organization Address City/[facility]/ZIP Co de Phone Number [facility] [place] [address] * Potassium (07/29/2024 8:11 PM EST) Pathologist [facility] Potassium 4.1 3.5 - 5.0 mMol/L 07/29/2024 8:52 PM EST [facility] Blood VENOUS BLOOD SPECIMEN / Unknown Venipuncture / Unknown 07/29/2024 8:11 PM EST 07/29/2024 8:16 PM EST Aubree Silverio MD CHEMISTRY ORDERABL ES [facility] [place] [address] * (ABNORMAL) Troponin - Single (07/29/2024 8:11 PM EST) Troponin-T, High Sensitivity >10,000(H ) <=22 ng/L 07/29/2024 8:52 PM EST [facility] Comment: This patient's troponin [...] in the [facility] Laboratory Test Catalog Troponin - https://[email or web address].testcatalog.org/catalogs/565/files/70372 Reference: Fourth [place] Definition of Myocardial Infarction. Journal of the [place] [employer] 2018;72:9621-2346 Blood VENOUS BLOOD SPECIMEN / Unknown Venipuncture / Unknown 07/29/2024 8:11 PM EST 07/29/2024 8:16 PM EST Aubree Silverio MD CHEMISTRY ORDERABL ES Performing Organization Address City/State/[facility] Co de Phone Number [facility] [place] [address] * (ABNORMAL) Phosphorus (07/29/2024 8:11 PM EST) Phosphorus 2.1(L) 2.5 - 4.5 mg/dL 07/29/2024 8:52 PM EST [facility] Blood VENOUS BLOOD SPECIMEN / Unknown Venipuncture / Unknown 07/29/2024 8:11 PM EST 07/29/2024 8:16 PM EST Aubree Silverio MD CHEMISTRY ORDERABL ES Performing Organization Address City/State/[facility] Co de Phone Number [facility] [place] [address] * POC, GLUCOSE (07/29/2024 8:09 PM EST) Glucometer, POC 142 65 - 199 mg/dL 07/29/2024 8:09 PM EST [facility] Comment:Supplemental ranges: <140 mg/dL before meals <180 mg/dL all other times of the day. Blood CAPILLARY BLOOD / Unknown 07/29/2024 8:09 PM EST 07/29/2024 8:09 PM EST Aubree Silverio MD POINT OF CARE TEST ORDERABLES Performing Organization Address [facility] Co de Phone Number [facility] [place] [address] * ABORH RECHECK (07/29/2024 6:43 PM EST) ABORH Recheck AB POSITIVE 07/29/2024 10:13 PM EST [facility] Blood VENOUS BLOOD SPECIMEN / Unknown Venipuncture / Unknown 07/29/2024 6:43 PM EST 07/29/2024 7:15 PM EST Aubree Silverio MD BLOOD BANK LAB ORD ERABLES Performing Organization Address [facility] Co de Phone Number [facility] [place] [address] * POC, GLUCOSE (07/29/2024 5:57 PM EST) Glucometer, POC 166 65 - 199 mg/dL 07/29/2024 5:57 PM EST [facility] Comment:Supplemental ranges: <140 mg/dL before meals <180 mg/dL all other times of the day. Blood CAPILLARY BLOOD / Unknown 07/29/2024 5:57 PM EST 07/29/2024 5:57 PM EST Aubree Silverio MD POINT OF CARE TEST ORDERABLES [facility] [place] [address] * Type and screen ([facility]JONG[facility]MAGALIE) (07/29/2024 5:56 PM EST) [facility] ABORH Type AB POSITIVE 07/29/2024 9:44 PM EST [facility] PATIENT HISTORY Not Found 07/29/2024 9:44 PM EST [facility] Expires at [id number] on: 08/01/2024 07/29/2024 9:44 PM EST [facility] ANTIBODY SCREEN AUTOMATED Negative 07/29/2024 9:44 PM EST [facility] T&S only valid at [facility] 07/29/2024 9:44 PM EST [facility] Blood VENOUS BLOOD SPECIMEN / Unknown Venipuncture / Unknown 07/29/2024 5:56 PM EST 07/29/2024 6:07 PM EST Narrative [facility] - 07/29/2024 9:44 PM EST This Type and Screen result is only valid at the [facility] Aubree Silverio MD BLOOD BANK LAB ORD ERABLES Performing Organization Address City/[facility]/ZIP Co de Phone Number [facility] [place] [address] * (ABNORMAL) Troponin - Single (07/29/2024 4:52 PM EST) [facility] Troponin-T, High Sensitivity >10,000(H ) <=22 ng/L 07/29/2024 5:25 PM EST [facility] Comment: This patient's troponin [...] in the [facility] Test Catalog Troponin - https://[email or web address].testcatalog.org/catalogs/565/files/17033 Reference: Fourth Milton Definition of Myocardial Infarction. Journal of the [place] [employer] 2018;72:5696-6149 Blood VENOUS BLOOD SPECIMEN / Unknown Venipuncture / Unknown 07/29/2024 4:52 PM EST 07/29/2024 4:57 PM EST Aubree Silverio MD CHEMISTRY ORDERABL ES Performing Organization Address [facility]/ZIP Co de Phone Number [facility] [place] [address] * EKG 12 Lead (07/29/2024 4:21 PM EST) Ventricular rate 72 BPM MUSE SYSTEM Atrial Rate 72 BPM MUSE SYSTEM P-R Interval 168 ms MUSE SYSTEM QRS Duration 82 ms MUSE SYSTEM Q-T Interval 392 ms MUSE SYSTEM QTC Calculated (Bezet) 429 ms MUSE SYSTEM Calculated P [place] 71 degrees MUSE SYSTEM Calculated R [place] 77 degrees MUSE SYSTEM Calculated T [place] 28 degrees MUSE SYSTEM INTERPRETATION Sinus rhythm [...] Silverio MD ECG ORDERABLES Performing Organization Address City/[facility]/ZIP Co de Phone Number MUSE SYSTEM * (ABNORMAL) Blood Gas, Arterial POC (07/29/2024 4:21 PM EST) pH, Arterial 7.37 7.35 - 7.45 07/29/2024 4:22 PM [facility] PCO2, Arterial 36 35 - 45 mmHg 07/29/2024 4:22 PM [facility] PO2, Arterial 71(L) 85 - 104 mmHg 07/29/2024 4:22 PM [facility] Bicarbonate, Arterial 20.4 20.0 - 26.0 mmol/L 07/29/2024 4:22 PM [facility] Base Excess, Arterial -4.8(L) -3.0 - 3.0 mmol/L 07/29/2024 4:22 PM [facility] Hemoglobin, Arterial 12.2(L) 13.7 - 16.5 g/dL 07/29/2024 4:22 PM [facility] Oxyhemoglobin, Arterial 93.8(L) 94.0 - 97.0 % 07/29/2024 4:22 PM [facility] Carboxyhemoglobin , Arterial 0.5 % 07/29/2024 4:22 PM [facility] Comment: Nonsmokers: 0.5-1.5% COHB ?? Smokers: Variable ??but usually less than 10% ?? Toxic: 20-30% COHB ?? Lethal: Greater than 60% COHB Methemoglobin, Arterial 0.3 <=1.5 % 07/29/2024 4:22 PM [facility] Sodium, Arterial 134(L) 135 - 145 mmol/L 07/29/2024 4:22 PM [facility] Potassium, Arterial 4.2 3.5 - 5.0 mmol/L 07/29/2024 4:22 PM [facility] Chloride, Arterial 107 98 - 107 mmol/L 07/29/2024 4:22 PM [facility] Lactate, Arterial 1.5 0.5 - 2.2 mmol/L 07/29/2024 4:22 PM [facility] Fraction of Inspired Oxygen 21 % 07/29/2024 4:22 PM [facility] PF Ratio 338 Ratio 07/29/2024 4:22 PM [facility] Comment:PF ratio calculated using the non-temperature corrected pO2 result. IONIZED CALCIUM, ARTERIAL 1.12(L) 1.15 - 1.33 mmol/L 07/29/2024 4:22 PM [facility] Glucose, Arterial 181 65 - 199 mg/dL 07/29/2024 4:22 PM [facility] Comment:Glucose Concentratio n >=200 mg/dL plus symptoms is consistent with Diabetes Mellitus. Blood ARTERIAL BLOOD / Unknown 07/29/2024 4:21 PM EST 07/29/2024 4:22 PM EST Aubree Silverio MD POINT OF CARE TEST ORDERABLES Performing Organization Address City/[facility]/ZIP Co de Phone Number [facility] [place] [address] * POC, GLUCOSE (07/29/2024 4:19 PM EST) Glucometer, POC 185 65 - 199 mg/dL 07/29/2024 4:19 PM [facility] Comment:Supplemental ranges: <140 mg/dL before meals <180 mg/dL all other times of the day. Blood CAPILLARY BLOOD / Unknown 07/29/2024 4:19 PM EST 07/29/2024 4:19 PM EST Aubree Silverio MD POINT OF CARE TEST ORDERABLES [facility] [place] [address] * Blood culture (07/29/2024 4:08 PM EST) Blood Culture No growth at 120 hours 08/03/2024 5:01 PM EST [facility] Blood VENOUS BLOOD SPECIMEN / Unknown Venipuncture / Unknown 07/29/2024 4:08 PM EST 07/29/2024 4:15 PM EST Aubree Silverio MD MICROBIOLOGY - BLO OD ORDERABLES Performing Organization Address [facility] Co de Phone Number [facility] [place] [address] * Blood culture (07/29/2024 4:08 PM EST) Blood Culture No growth at 120 hours 08/03/2024 5:01 PM EST [facility] Blood VENOUS BLOOD SPECIMEN / Unknown Venipuncture / Unknown 07/29/2024 4:08 PM EST 07/29/2024 4:26 PM EST Aubree Silverio MD MICROBIOLOGY - BLO OD ORDERABLES Performing Organization Address [facility] de Phone Number [facility] [place] [address] * XR Chest One View (07/29/2024 2:30 PM EST) WORKSTATION ID [id number] DH RAD Anatomical Region Laterality Modality Chest [...] signed by: Chris Candelaria MD, [facility] ([phone]), at 07/29/2024 3:21 PM Narrative 07/29/2024 3:21 [...] signed by: Chris Candelaria MD, [facility]([phone]), at 07/29/2024 3:21 PM Vahe Marvin MD IMG DX ORDERABLES * (ABNORMAL) APTT (07/29/2024 2:03 PM EST) Partial Thromboplastin Time >160(HHH) 25 - 37 sec 07/29/2024 2:56 PM EST [facility] Blood VENOUS BLOOD SPECIMEN / Unknown Venipuncture / Unknown 07/29/2024 2:03 PM EST 07/29/2024 2:13 PM EST Vahe Marvin MD HEMATOLOGY ORDERABLE S Performing Organization Address City/[facility]/ZIP Co de Phone Number [facility] [place] [address] * (ABNORMAL) Prothrombin Time (07/29/2024 2:03 PM EST) Prothrombin Time 14.2(H) 9.4 - 12.5 sec 07/29/2024 2:56 PM EST [facility] International Normalization Ratio 1.3 <=4.9 07/29/2024 2:56 PM EST [facility] Comment: An INR < [...] 2:03 PM EST 07/29/2024 2:13 PM EST Vaeh Marvin MD HEMATOLOGY ORDERABLE S Performing Organization Address [facility] Co de Phone Number [facility] [place] [address] * CRP, acute inflammation (07/29/2024 2:03 PM EST) C-Reactive Protein <3.0 <=4.9 mg/L 07/29/2024 2:52 PM EST [facility] Blood VENOUS BLOOD SPECIMEN / Unknown Venipuncture / Unknown 07/29/2024 2:03 PM EST 07/29/2024 2:14 PM EST Vahe Marvin MD CHEMISTRY ORDERABLES Performing Organization Address City/[facility]/ZIP Co de Phone Number [facility] [place] [address] * Lipid Panel (Reflex Direct LDL) (07/29/2024 2:03 PM EST) Cholesterol, Total 133 mg/dL 07/29/2024 2:52 PM [facility] Comment: Desirable: < 200 mg/dL Borderline High: 200 - 239 mg/dL High: > or = 240 mg/dL Triglyceride 45 mg/dL 07/29/2024 2:52 PM [facility] Comment: Normal: <150 mg/dL Borderline High: 150-199 mg/dL High: 200-499 mg/dL Very High: > or =500 mg/dL HDL Cholesterol 58 mg/dL 2:52 PM [facility] Comment:Males: High Risk: <4 0 mg/dL LDL Cholesterol 64 mg/dL 4 2:52 PM [facility] Comment: Desirable: <100 mg/dL Above Desirable: 100-129 mg/dL Borderline High: 130-159 mg/dL High: 160-189 mg/dL Very High: > or =190 mg/dL Note: LDL calculation updated to the NIH LDL formula as of 04/15/2024 Non-HDL Cholesterol 75 mg/dL 07/29/2024 2:52 PM [facility] Comment: Desirable: <130 mg/dL Above Desirable: 130-159 mg/dL Borderline High: 160-189 mg/dL High: 190-219 mg/dL Very High: > or = 220 mg/dL Blood VENOUS BLOOD SPECIMEN / Unknown Venipuncture / Unknown 07/29/2024 2:03 PM EST 07/29/2024 2:14 PM EST formerly [facility] - 07/29/2024 2:52 PM EST It [...] artery disease) Vahe Marvin MD CHEMISTRY ORDERABLES [facility] [place] [address] * TSH Bibb (07/29/2024 2:03 PM EST) Thyroid Stimulating Hormone 0.70 0.27 - 4.20 mcIU/mL 07/29/2024 2:52 PM EST [facility] Blood VENOUS BLOOD SPECIMEN / Unknown Venipuncture / Unknown 07/29/2024 2:03 PM EST 07/29/2024 2:14 PM EST Vahe Marvin MD CHEMISTRY ORDERABLES [facility] [place] [address] * Hemoglobin A1c (07/29/2024 2:03 PM EST) Pathologist [facility] Hemoglobin A1c 5.3 4.3 - 5.6 % 07/29/2024 2:41 PM EST [facility] Comment: Per ADA guidelines, [...] red blood cell turnover may not be medical service representative of glycemic control. Reference Interval: 4.3 - 5.6% 5.7 - 6.4%: Consistent with prediabetes >=6.5%: Consistent with diagnosis of diabetes mellitus Estimated Average Glucose 07/29/2024 2:41 PM EST [facility] Comment:Estimated Average Gl ucose [...] into estimated average glucose values. ??Diabetes Care 2008:31(8):5981-9735. Additional resources are available on the ADA website (diabetes.org). Vahe Marvin MD CHEMISTRY ORDERABLES [facility] [place] [address] * (ABNORMAL) CBC (with Diff) (07/29/2024 2:03 PM EST) White Blood Cell 19.50(H) 4.00 - 9.50 x10(3)/mc L 07/29/2024 2:18 PM EST [facility] Red Blood Cell 4.81 4.58 - 5.54 x10(6)/mc L 07/29/2024 2:18 PM [facility] Hemoglobin 13.1(L) 13.7 - 16.5 g/dL 07/29/2024 2:18 PM EST [facility] Hematocrit 40.1(L) 40.5 - 48.5 % 07/29/2024 2:18 PM EST [facility] Mean Cell Volume 83.4 82.9 - 93.1 fL 07/29/2024 2:18 PM EST [facility] Mean Cell Hemoglobin 27.2(L) 27.5 - 32.1 pg 07/29/2024 2:18 PM [facility] Mean Cell Hemoglobin Concentration 32.7 32.0 - 35.7 g/dL 07/29/2024 2:18 PM EST [facility] Platelet 236 145 - 357 x10(3)/mc L 07/29/2024 2:18 PM [facility] Mean Platelet Volume 10.6 7.6 - 12.9 fL 07/29/2024 2:18 PM EST [facility] RDW Standard Deviation 43.7 36.0 - 45.0 fL 07/29/2024 2:18 PM [facility] RDW coefficient of variation 14.3(H) 11.4 - 13.8 % 07/29/2024 2:18 PM [facility] NRBC% auto 0.0 % 07/29/2024 2:18 PM [facility] NRBC Absolute <0.01 <0.01 x10(3)/mc L 07/29/2024 2:18 PM [facility] Neutrophil % 93.6 % 07/29/2024 2:18 PM [facility] Neutrophil Absolute (ANC) - Automated 18.28(H) 1.70 - 6.10 x10(3)/mc L 07/29/2024 2:18 PM [facility] Lymph % 2.7 % 07/29/2024 2:18 PM [facility] Lymph Absolute 0.52(L) 0.90 - 3.20 x10(3)/mc L 07/29/2024 2:18 PM [facility] Monocyte % 2.9 % 07/29/2024 2:18 PM [facility] Monocyte Absolute 0.56 0.30 - 0.90 x10(3)/mc L 07/29/2024 2:18 PM [facility] Eos % 0.0 % 07/29/2024 2:18 PM [facility] Eos Absolute <0.04 0.00 - 0.40 x10(3)/mc L 07/29/2024 2:18 PM [facility] Basophil % 0.3 % 07/29/2024 2:18 PM [facility] Baso Absolute 0.05 0.00 - 0.10 x10(3)/mc L 07/29/2024 2:18 PM [facility] Immature Gran % 0.5 % 2:18 PM [facility] Immature Gran Absolute 0.09(H) 0.00 - 0.04 x10(3)/mc L 07/29/2024 2:18 PM [facility] Blood VENOUS BLOOD SPECIMEN / Unknown Venipuncture / Unknown 07/29/2024 2:03 PM EST 07/29/2024 2:13 PM EST Vahe Marvin MD HEMATOLOGY ORDERABLE S [facility] [place] [address] * Phosphorus (07/29/2024 2:03 PM EST) Phosphorus 2.5 2.5 - 4.5 mg/dL 07/29/2024 2:52 PM EST [facility] Blood VENOUS BLOOD SPECIMEN / Unknown Venipuncture / Unknown 07/29/2024 2:03 PM EST 07/29/2024 2:14 PM EST Vahe Marvin MD CHEMISTRY ORDERABLES Performing Organization Address City/[facility]/ZIP Co de Phone Number [facility] [place] [address] * Magnesium (07/29/2024 2:03 PM EST) Pathologist [facility] Magnesium 0.70 0.69 - 1.07 mMol/L 07/29/2024 2:52 PM EST [facility] Blood VENOUS BLOOD SPECIMEN / Unknown Venipuncture / Unknown 07/29/2024 2:03 PM EST 07/29/2024 2:14 PM EST Vahe Marvin MD CHEMISTRY ORDERABLES [facility] [place] [address] * (ABNORMAL) Comprehensive metabolic panel (07/29/2024 2:03 PM EST) Glucose 243(H) 65 - 199 mg/dL 07/29/2024 3:11 PM EST [facility] Comment:Glucose Concentratio n >=200 mg/dL plus symptoms is consistent with Diabetes Mellitus. Blood Urea Nitrogen 13 10 - 20 mg/dL 07/29/2024 3:11 PM EST [facility] Creatinine 0.88 0.80 - 1.50 mg/dL 07/29/2024 3:11 PM [facility] Sodium 138 135 - 145 mMol/L 07/29/2024 3:11 PM [facility] Potassium 3.6 3.5 - 5.0 mMol/L 07/29/2024 3:11 PM [facility] Chloride 104 98 - 107 mMol/L 07/29/2024 3:11 PM [facility] Carbon Dioxide 19(L) 22 - 31 mMol/L 07/29/2024 3:11 PM [facility] Anion Gap 15 5 - 15 mMol/L 07/29/2024 3:11 PM [facility] Calcium 8.0(L) 8.5 - 10.5 mg/dL 07/29/2024 3:11 PM [facility] Protein, Total 6.0(L) 6.1 - 8.0 g/dL 07/29/2024 3:11 PM [facility] Albumin 3.6 3.2 - 5.2 g/dL 07/29/2024 3:11 PM [facility] Aspartate Aminotransferase 07/29/2024 3:11 PM [facility] Comment:Unable to report due to hemolysis. Alanine Aminotransferase 56(H) 0 - 55 unit/L 07/29/2024 3:11 PM [facility] Alkaline Phosphatase 58 40 - 130 unit/L 07/29/2024 3:11 PM [facility] Bilirubin, Total 0.5 <=1.3 mg/dL 07/29/2024 3:11 PM [facility] Est Glomerular Filtration Rate - Male 91 mL/min/1. 73 m?? 07/29/2024 3:11 PM [facility] Comment: This patient's estimated GFR was [...] PM EST Vahe Marvin MD CHEMISTRY ORDERABLES [facility] [place] [address] * (ABNORMAL) Troponin - Single (07/29/2024 2:03 PM EST) Pathologist [facility] Troponin-T, High Sensitivity >10,000(H ) <=22 ng/L 07/29/2024 2:52 PM EST [facility] Comment: This patient's troponin [...] in the [facility] Laboratory Test Catalog Troponin - https://one-.testcatalog.org/catalogs/565/files/[email or web address] Reference: Fourth Milton Definition of Myocardial Infarction. Journal of the [place] [employer] 2018;72:8641-1248 Blood VENOUS BLOOD SPECIMEN / Unknown Venipuncture / Unknown 07/29/2024 2:03 PM EST 07/29/2024 2:14 PM EST Vahe Marvin MD CHEMISTRY ORDERABLES [facility] [place] [address] * (ABNORMAL) Blood Gas, Venous POC (07/29/2024 2:01 PM EST) pH, Venous 7.30(L) 7.32 - 7.42 07/29/2024 2:02 PM EST [facility] PCO2, Venous 42 38 - 58 mmHg 07/29/2024 2:02 PM [facility] PO2, Venous 39 16 - 65 mmHg 07/29/2024 2:02 PM [facility] Bicarbonate, Venous 20.1(L) 22 - 31 mmol/L 07/29/2024 2:02 PM [facility] Base Excess, Venous -6.4(L) 1.9 - 4.5 mmol/L 07/29/2024 2:02 PM [facility] Hemoglobin, Venous 14.2 13.7 - 16.5 g/dL 07/29/2024 2:02 PM [facility] Oxyhemoglobin, Venous 69.3 % 07/29/2024 2:02 PM [facility] Carboxyhemoglobin , Venous 0.8 % 07/29/2024 2:02 PM [facility] Comment: Nonsmokers: 0.5-1.5% COHB ?? Smokers: Variable ??but usually less than 10% ?? Toxic: 20-30% COHB ?? Lethal: Greater than 60% COHB Methemoglobin, Venous 0.3 <=1.5 % 07/29/2024 2:02 PM [facility] Sodium, Venous 137 135 - 145 mmol/L 07/29/2024 2:02 PM [facility] Potassium, Venous 3.6 3.5 - 5.0 mmol/L 07/29/2024 2:02 PM [facility] Chloride, Venous 103 98 - 107 mmol/L 07/29/2024 2:02 PM EST [facility] Glucose, Venous 229(H) 65 - 199 mg/dL 07/29/2024 2:02 PM EST [facility] Comment:Glucose Concentratio n >=200 mg/dL plus symptoms is consistent with Diabetes Mellitus. Lactate, Venous 3.1(H) 0.5 - 2.2 mmol/L 07/29/2024 2:02 PM EST [facility] Ionized Calcium, Venous 1.11(L) 1.15 - 1.33 mmol/L 07/29/2024 2:02 PM EST [facility] Blood VENOUS BLOOD SPECIMEN / Unknown 07/29/2024 2:01 PM EST 07/29/2024 2:02 PM EST Vahe Marvin MD POINT OF CARE TEST O RDERABLES Performing Organization Address City/State/[facility] Co de Phone Number [facility] [place] [address] * CARDIAC CATHETERIZATION (07/29/2024 1:20 PM EST) Anatomical Region Laterality Modality Other Narrative 07/29/2024 2:02 PM EST ?[facility] ? Cardiac Catheterization/Intervention Report ? Patient Name: Korey Montoya Driss ? Procedure Date: 07/29/2024 ? A #: [id number] ? Primary Physician: Vahe Marvin ? Case #: [id number] ? File Name: [id number] ? Catheterization Order Number: [id number] ? [facility] ? Final Report [place], [place] ? Patient Name: ? Korey P. Montoya ?ID#: ?[id number] ? : ?1950 ? Procedure Date: ? [...] procedure was Emergent. The indication for ?the collaborative teacher visit is ACS less than or equal [...] 3.5 guiding catheter and a 3.5 Fr [place] [facility] [address] ??20 Mhz using ?Manual pullback. ??Imaging [...] A premounted 3.00 x 22 mm Jeison Cole (LOW) was deployed ? with a maximum [...] atmospheres. ??A premounted 3.00 x 08 mm [place] Cole (LOW) ? was deployed with a maximum [...] dose administered prior to arrival in the collaborative teacher. ?Recommended anti-platelet/anti-thrombotic regimen: ?Start aspirin 81 mg daily now and continue for 12 months then stop. ?Start clopidogrel 75 mg daily now and continue for indefinitely. ?These recommendations are made at the time of the intervention. Patient ?and provider preferences or a changing clinical situation may require ?modification of this regimen. Consult [facility] Interventional [facility]iology for ?questions. ?The 1 year [...] able ?to start weaning his inotropes/vasopressors. A [place] Colette catheter was ?placed demonstrating improvement in his hemodynamics and the impella site ?was perclosed and hemostatic gauze was applied with excellent result. ?WIll transfer to the [facility] for further management. ?The attending physician was present for the entire procedure. ?Dr. Vahe Marvin M.D. was present during the moderate sedation ?intraservice time as documented by the sedation nurse. ??Case time = 01:26. ?Dr. Vahe Marvin M.D. performed the coronary angiography, left heart ?catheterization, IVUS # coronary, stent insertion-coronary, oximetry, ABG, ?transthoracic echo , ventricular assist device insertion, right heart ?catheterization, [place] (flow directed cath) insertion, access site ?angiography, vascular ultrasound, venous line / sheath insert and vascular ?closure device. ? Vahe Marvin M.D. ? Electronically Signed by: Vahe Marvin M.D. ? Report Finalized: 07/29/2024 ??13:55 ? Report Last Ammended: 07/30/2024 ??10:15 ? Procedure Note Vahe Marvin MD - 07/30/2024 [facility] Cardiac Catheterization/Intervention Report Patient Name: Korey Montoya Procedure Date: 07/29/2024 A #: [id number] Primary Physician: Vahe Marvin Case #: [id number] File Name: [id number] Catheterization Order Number: [id number] [facility] FinalReport [place], [place] Patient Name: Korey Montyoa ID#:[id number] :1950 Procedure Date: July 29, 2024 Case #: [id number] Room: 5 Case Physician: Vaeh Marvin M.D. Start: 11:46 Admission:07/29/2024 Referring Physician: [...] diagnostic procedure was Emergent. Theindication for the collaborative teacher visit is ACS less than or equal [...] 3.5 guiding catheter and a 3.5 Fr [place] [facility] [address] 20 Mhzusing Manual pullback. Imaging was [...] The priority for the procedure was Emergent.The [facility] indication for the procedure was STEMI-Immediate [...] of the LAD. This was a de emrlene lesion. According to the ACC/AHA classification system, thislesion was a type C high risk lesion. Primary prevention of restenosis was the indication for stent insertion. Thiswas the culprit lesion. A guidewire was placed across thislesion. Vessel flow pre intervention was LIZ 0. Lesion lengthwas 30mm. Stent insertion was accomplished through a 6 Fr. EBU 3.5 guide. The lesion was predilated with a 2.00mm [id number] MM balloon with a maximum inflation pressure of 12atmospheres. A premounted 3.00 x 22 mm [place] Cole (LOW) wasdeployed with a maximum inflation pressure [...] A premounted 3.00 x 08 mm [place]ison Cole(LOW) was deployed with a maximum inflation pressure [...] dose administered prior to arrival in the collaborative teacher. Recommended anti-platelet/anti-thrombotic regimen: Start aspirin 81 mg daily now and continue for 12 months then stop. Start clopidogrel 75 mg daily now and continue for indefinitely. These recommendations are made at the time of the intervention.Patient and provider preferences or a changing clinical situation mayrequire modification of this regimen. Consult [facility] Interventional Cardiologyfor questions. The 1 year bleeding [...] wereable to start weaning his inotropes/vasopressors. A [place] Colette catheterwas placed demonstrating improvement in his [...] ventricular assist device insertion, right heart catheterization, [place] (flow directed cath) insertion, access site angiography, vascular ultrasound, venous line / sheath insert andvascular closure device. Vahe Marvin M.D. Electronically Signed by: Vahe Marvin M.D. Report Finalized: 07/29/2024 13:55 Report Last Ammended: 07/30/2024 10:15 Vahe Marvin MD CARDIAC CATH ORDERAB LES * (ABNORMAL) BLOOD GAS, POC (07/29/2024 12:46 PM EST) Sodium, POC 139 135 - 145 mmol/L 07/30/2024 7:30 AM EST [facility] Potassium, POC 3.4(L) 3.5 - 5.0 mmol/L 07/30/2024 7:30 AM [facility] pH, POC 7.33(L) 7.35 - 7.45 07/30/2024 7:30 AM [facility] Ionized Calcium, POC 1.13(L) 1.15 - 1.33 mmol/L 07/30/2024 7:30 AM [facility] pCO2, POC 38 35 - 45 mmHg 07/30/2024 7:30 AM [facility] pO2, POC 94 85 - 104 mmHg 07/30/2024 7:30 AM [facility] Base Excess, POC -6.0(L) -3.0 - 3.0 mmol/L 07/30/2024 7:30 AM [facility] Hematocrit, POC 39.0(L) 40.5 - 48.5 %PCV 07/30/2024 7:30 AM [facility] Hemoglobin, POC 13.3(L) 13.7 - 16.5 g/dL 07/30/2024 7:30 AM [facility] Comment:The calculation of h emoglobin from hematocrit assumes a normal MCHC. Bicarbonate, POC 19.8(L) 20.0 - 26.0 mmol/L 07/30/2024 7:30 AM [facility] Carbon Dioxide, POC 21(L) 22 - 31 mmol/L 07/30/2024 7:30 AM [facility] Blood VENOUS BLOOD SPECIMEN / Unknown 07/29/2024 12:46 PM EST 07/30/2024 7:30 AM EST Vahe Marvin MD POINT OF CARE TEST O RDERABLES [facility] [place] [address] * (ABNORMAL) BLOOD GAS, POC (07/29/2024 12:12 PM EST) Sodium, POC 135 135 - 145 mmol/L 07/30/2024 7:30 AM [facility] Potassium, POC 3.8 3.5 - 5.0 mmol/L 07/30/2024 7:30 AM [facility] pH, POC 7.27(LLL) 7.35 - 7.45 07/30/2024 7:30 AM [facility] Ionized Calcium, POC 1.14(L) 1.15 - 1.33 mmol/L 07/30/2024 7:30 AM [facility] pCO2, POC 43 35 - 45 mmHg 07/30/2024 7:30 AM [facility] pO2, POC 131(H) 85 - 104 mmHg 07/30/2024 7:30 AM [facility] Base Excess, POC -7.0(L) -3.0 - 3.0 mmol/L 07/30/2024 7:30 AM [facility] Hematocrit, POC 36.0(L) 40.5 - 48.5 %PCV 07/30/2024 7:30 AM [facility] Hemoglobin, POC 12.2(L) 13.7 - 16.5 g/dL 07/30/2024 7:30 AM [facility] Comment:The calculation of h emoglobin from hematocrit assumes a normal MCHC. Bicarbonate, POC 19.7(L) 20.0 - 26.0 mmol/L 07/30/2024 7:30 AM [facility] Carbon Dioxide, POC 21(L) 22 - 31 mmol/L 07/30/2024 7:30 AM [facility] Blood VENOUS BLOOD SPECIMEN / Unknown 07/29/2024 12:12 PM EST 07/30/2024 7:30 AM EST Vahe Marvin MD POINT OF CARE TEST O RDERABLES [facility] [place] [address] documented in this encounter Visit Diagnoses Not [...] Routine documented in this encounter Care Teams Clinical Research Administrator Relationship Specialty Start Date End Date Alexia Mtz, [address] [place] [address] PCP - General Family Medicine 07/30/24 documented as of this encounter
--- OUTSIDE RECORDS SUMMARY | 2024-09-07 11:10 | XMS_ITS | Encounter Summary ---
[place] [address] Care Team Providers Care Marketing Admin Name Role Phone Alexia Mtz FRUIT PACKER Primary Care Provider [phone] Reason for Visit * Auth/Cert (Routine) Specialty Diagnoses / Procedures Referred By Theodore t Referred To Contact Diagnoses STEMI (ST elevation myocardial infarction) STEMI Procedures ER Vahe Lopez MD [facility] [place] [address] [facility] Referral ID Status Reason Start Date Expiration Date Visits Re quested Visits Authorized [id number] 1 1 Encounter Details Date Type Department Care Team (Late st Contact Info) Description 07/31/2024 4:45 PM EST Anesthesia Event [place] [address] Venkatesh Mauricio MD [facility] [place] [address] Anesthesia Record Procedure Summary Procedure Name Responsible [...] Right; femoral vein; hemodynamic monitoring; Placed in label pinker; 08/01/24; 1420 07/29/24 1300 by Silvia Wan RN 08/01/24 1420 by Marivel English RN PIV 07/29/24; 1300; [id number]-[id number] catheter system; 18 gauge; basilic vein (medial [...] drink = 0.6 oz pur e alcohol) [facility] Utilities Answer Date Recorded In [...] time in the past 12 m [facility], were you homeless or living in a penitentiary (including now)? No 07/30/2024 IPV Inpatient Questions [...] AM EST Office Visit Cardiology at [address] [address] Mushtaq Murphy APRN documented as of this encounter Visit Diagnoses Not on filedocumented in this encounter Care Teams Marketing Admin Relationship Specialty Start Date End Date Alexia Mtz, [address] [place] [address] PCP - General Family Medicine 07/30/24 documented as of this encounter
--- OUTSIDE RECORDS SUMMARY | 2024-09-07 11:10 | XMS_ITS | Encounter Summary ---
Author Organization [facility] Address [facility] [place] [address] Care Team Providers Care Porcelain Enamel Sprayer Name Role Phone Yoel Artis Ute ALCALA Primary Care Provider [phone] Reason for Visit * Auth/Cert (Routine) Specialty Diagnoses / Procedures Referred By Theodore t Referred To Contact Diagnoses AIRO Procedures [place] [employer] [place] [employer] [place] [employer] AIRO [facility] Referral ID Status Reason Start Date Expiration Date Visits Re quested Visits Authorized [id number] 1 1 Encounter Details Date Type Department Care Team (Latest Contact Info) Description 07/29/2024 6:32 PM EST - 07/29/2024 11:59 PM EST Hospital Encounter [facility] at [address] [address] Arvin Becerra MD [facility] [place] [address] Discharge Disposition: Home Social History Tobacco Use Types Packs/Day Years Used Date Smoking Tobacco: Former Cigarettes Smokeless Tobacco: Never Alcohol Use Standard Drinks/Week Comments Not Currently 0 (1 standard drink = 0.6 oz pur e alcohol) [facility] Utilities Answer Date Recorded In [...] any time in the past 12 m [facility], were you homeless or living in a penitentiary (including now)? No 07/30/2024 DH IPV Inpatient [...] evening. 04/17/2023 08/04/2024 nitroGLYcerin (NITROLINGUAL) 400 mcg/spray [place], Non-AerosolIndications: Proctalgia fugax,Fecal smearing,Constipation, unspecified constipation type 1 spray to anus for proctalgia fugax as needed, not to exceed once daily 12 g 06/01/2023 08/04/2024 documented as of this encounter Plan of Treatment Upcoming Encounters Date Type Department Care Team (Late st Contact Info) Description 10/01/2024 10:00 AM EST Office Visit Cardiology at [address] [phone] Mushtaq Murphy APRN documented as of this encounter Visit Diagnoses Not on filedocumented in this encounter Care Teams Porcelain Enamel Sprayer Relationship Specialty Start Date End Date Yoel Artis APRN [address] [place] [id number] PCP - General Internal Medicine 11/18/22 07/29/24 documented as of this encounter
--- OUTSIDE RECORDS SUMMARY | 2024-09-07 11:11 | XMS_ITS | Encounter Summary ---
Author Organization [facility] [place] [address] Care Team Providers Care Core Finisher Name Role Phone Yoel Artis Ute ALCALA Primary Care Provider Encounter Details Date Type Department Care Team (Late st Contact Info) Description 01/16/2024 5:46 PM EDT - 01/16/2024 11:59 PM EDT Hospital Encounter [facility] [address] [place] [address] Chaparro Montana MD [address] [place] [address] Discharge Disposition: Home Social History Tobacco Use [...] evening. 04/17/2023 08/04/2024 nitroGLYcerin (NITROLINGUAL) 400 mcg/spray [place], Non-AerosolIndications:P roctalgia fugax,Fecal smearing,Constipation, unspecified constipation type 1 spray to anus for proctalgia fugax as needed, not to exceed once daily 12 g 06/01/2023 08/04/2024 documented as of this encounter Plan of Treatment Upcoming Encounters Date Type Department Care Team (Late st Contact Info) Description 10/01/2024 10:00 AM EST Office Visit Cardiology at [address] [phone] Mushtaq Murphy APRN documented as of this encounter Procedures Procedure Name Priority Date/Time Associated Diagnosis Comments URINE CULTURE Routine 01/16/2024 4:00 PM EDT documented in this encounter Results * Urine culture (01/16/2024 4:00 PM EDT) Urine Culture No growth (Less than 1,000 cfu/ml). [facility] Urine 01/16/2024 4:00 PM EDT 01/16/2024 10:36 PM EDT Narrative Resulting Agency Comment Spec In Lab Chaparro Montana MD MICROBIOLOGY - [facility] ORDERABLES [facility] [place] [address] documented in this encounter Visit Diagnoses Not on filedocumented in this encounter Care Teams Core Finisher Relationship Specialty Start Date End Date Yoel Artis APRN [address] [place] [id number] PCP - General Internal Medicine 11/18/22 07/29/24 documented as of this encounter
--- OUTSIDE RECORDS SUMMARY | 2024-09-07 11:11 | XMS_ITS | Encounter Summary ---
Author Organization [facility] [place] [address] Care Team Providers Care Carburetor Expert Name Role Phone Yoel Artis APRN Primary Care Provider Encounter Details Date Type Department Care Team (Late st Contact Info) Description 03/01/2023 9:30 AM EDT - 03/01/2023 11:59 PM EDT Hospital Encounter [facility] [address] [place] [address] Yoel Artis APRN [address] [place] [address] Discharge Disposition: Home Social History Tobacco Use [...] AM EST Office Visit Cardiology at [address] [address] Mushtaq Murphy APRN documented as of this encounter Procedures Procedure Name Priority Date/Time Associated Diagnosis Comments PSA (ULTRASENSITIVE) Routine 03/01/2023 9:38 AM EDT documented in this encounter Results * (ABNORMAL) PSA (Ultrasensitive) (03/01/2023 9:38 AM EDT) Prostate Specific Antigen (Ultrasensitive) 5.09(H) 0.00 - 4.00 ng/mL [facility] Comment: PLEASE NOTE: The above [...] In Lab Yoel Artis APRN CHEMISTRY ORDERABLES [facility] [place] [address] documented in this encounter Visit Diagnoses Not on filedocumented in this encounter Care Teams Carburetor Expert Relationship Specialty Start Date End Date Yoel Artis APRN [address] [place] [address] PCP - General Internal Medicine 11/18/22 07/29/24 documented as of this encounter
--- OUTSIDE RECORDS SUMMARY | 2024-09-07 11:11 | XMS_ITS | Encounter Summary ---
Author Organization [facility] Address [facility] [place] [address] Care Team Providers Care Clinical Nurse Occupational Medicine Name Role Phone Yoel Artis Ute ALCALA Primary Care Provider [phone] Reason for Visit * Auth/Cert (Routine) Specialty Diagnoses / Procedures Referred By Conteleazar t Referred To Contact Diagnoses Anal spasm Fecal smearing Constipation, unspecified Rectal pain, fecal smearing Procedures PRO COLONOSCOPY, DIAGNOSTIC PRO COLONOSCOPY, BIOPSY PRO COLONOSCOPY, REMV LESN, SNARE COLONOSCOPY, DIAGNOSTIC (WRVU 3.26) Brandan Mcgovern MD [facility] [place] [address] [facility] Referral ID Status Reason Start Date Expiration Date Visits Re quested Visits Authorized [id number] 1 1 Encounter Details Date Type Department Care Team (Latest Contact Info) Description 08/30/2023 10:09 AM EST - 08/30/2023 12:19 PM EST Hospital Encounter [place] [address] Brandan Mcgovern MD [facility] [place] [address] Discharge Disposition: Home Social History Tobacco Use [...] occurs, please contact your Doctor. Please call [phone] before 8pm Mon-Fri with problems, questions or concerns. If you call after 8pm or on weekends, call the Hospital at [phone] and ask to speak to the Certified Nutritionist station inspector and the silk screen operator will contact that person for you. When should you call for help? Call 122 anytime you think you may need emergency [...] any problems. Where can you learn more? [facility] View your After Visit Summary and more online at [email or web address] If you would like to provide feedback about your hospital experience, please call the Office of Patient and Family Relations at . If you have received this After Visit Summary in error, please immediately return it in person to the department, or notify the [facility] Privacy Office by calling toll free at between the hours of 8AM and 5PM to arrange for our retrieval of the documents at no cost to you. Content Version: 12.2 ?? [id number] [employer]go. Care instructions adapted under license by [facility]. If you have questions about a medical condition or this instruction, always ask your healthcare professional. [employer] disclaims any warranty or liability for your [...] evening. 04/17/2023 08/04/2024 nitroGLYcerin (NITROLINGUAL) 400 mcg/spray [place], Non-AerosolIndications:P roctalgia fugax,Fecal smearing,Constipation, unspecified constipation type [...] 10:00 AM EST Office Visit Cardiology at [address] [address] Mushtaq Murphy, FREDRICK documented as of this encounter Procedures Procedure Name Priority Date/Time Associated Diagnosis Comments SPECIMEN TO PATHOLOGY Routine 08/30/2023 11:23 AM EST SURGICAL PATHOLOGY REPORT Routine 08/30/2023 11:21 AM EST COLONOSCOPY Routine 08/30/2023 10:57 AM EST Colonoscopy, Remv Lesn, Snare ([id number]) 08/30/2023 10:44 AM EST Proctalgia fugax Fecal smearing Constipation, unspecified constipation type documented in this encounter Results * Specimen to Pathology (08/30/2023 11:23 AM EST) AP Specimen 08/30/2023 11:2 3 AM EST 08/30/2023 11:23 AM EST Narrative [facility] - 08/30/2023 11:23 AM EST Specimen requisition ordered. ??Separate Pathology report to follow Brandan Mcgovern MD PATHOLOGY/CYTOLOGY O JOSH Performing Organization Address [facility]/ZIP Co de Phone Number [facility] [place] [phone] * Surgical Pathology Report (08/30/2023 11:21 AM EST) Final Diagnosis [id number] ? Location: 4T; EA12; A The signing pathologist has (i) examined the relevant preparation(s) for the specimen(s) and (ii) rendered or confirmed the diagnosis(es). . ?Surgical Pathology DIAGNOSIS A - Sigmoid colon polyp, resection (Multiple): - ??Tubular adenoma. CR-PX Electronically signed by: ?Blake ORTEGA PhD, Yulia Verified: ??09/08/2023 14:48 ??Pathologist Performed at: ??-[facility] Dept. of Pathology, [place] [address] Entry Operator: Fercho Chan MD, FCAP, ??CLIA Certificate: [id number] SPECIMEN(S) SUBMITTED A - Sigmoid colon polyp, resection (Multiple) CLINICAL INFORMATION 73-year-old male, history of rectal pain SPECIMEN PROCESSING A - Labeled/Fixativ e: Sigmoid colon polyp, formalin. Quantity/Size: Single, 0.8 cm. Tissue Description: Soft, candelaria tissue. Sections/Proces sing: Submitted in toto ??in 1 cassette labeled A1. ??sdy 09/08/2023 2:48 PM EST [facility] GI Biopsy 08/30/2023 11:2 1 AM EST 08/30/2023 11:21 AM EST Brandan Mcgovern MD PATHOLOGY/CYTOLOGY O JOSH Performing Organization Address City/[facility]/ZIP Co de Phone Number [facility] [address] [facility] [place] [address] * COLONOSCOPY (08/30/2023 10:57 AM EST) COLONOSCOPY [facility] Procedure Date: 08/30/2023 10:57 AM ? Patient Name: Korey Montoya ? Date of : 1950 ? Age: 73 ? Order #: [id number] ? Instrument Name: [id number]- [id number] ? Procedure: ? Colonoscopy Indications: ? Rectal [...] preparation was evaluated ? using the BBPS (WhoseView.ie Bowel ? Preparation Scale) with scores of: [...] RN) documented in this encounter Care Teams Clinical Nurse Occupational Medicine Relationship Specialty Start Date End Date Yoel Artis APRN [address] [place] [address] PCP - General Internal Medicine 11/18/22 07/29/24 documented as of this encounter
--- OUTSIDE RECORDS SUMMARY | 2024-09-07 11:11 | XMS_ITS | Encounter Summary ---
Author Organization [facility] Address [facility] [place] [address] Care Team Providers Care Bellhop Name Role Phone Yoel Artis FREDRICK Primary Care Provider [phone] Encounter Details Date Type Department Care Team (Late st Contact Info) Description 07/29/2024 [place] [phone] Ivan Hernandez MD [facility] [address] Social History Tobacco Use Types Packs/Day Years Used Date Smoking Tobacco: Former Cigarettes Smokeless Tobacco: Never Alcohol Use Standard Drinks/Week Comments Not Currently 0 (1 standard drink = 0.6 oz pur e alcohol) [facility] Utilities Answer Date Recorded In the past 12 months has e [employer], gas, oil, or water [employer] threatened to shut off services in your [...] time in the past 12 m [facility], were you homeless or living in a [...] 9:50 AM Hospital to which patient presented: [facility] If Hospital to which patient [...] Unfractionated Heparin Plan STEMI Alert called: Yes In Shop Service Technician Activated by: Mail Opener Initial Disposition: Admit In Shop Service Technician documented in this encounter Plan of Treatment Upcoming Encounters Date Type Department Care Team (Late st Contact Info) Description 10/01/2024 10:00 AM EST Office Visit Cardiology at [address] [address] Mushtaq Murphy APRN documented as of this encounter Visit Diagnoses Not on filedocumented in this encounter Care Teams Bellhop Relationship Specialty Start Date End Date Yoel Artis APRN [address] [place] [address] PCP - General Internal Medicine 11/18/22 07/29/24 documented as of this encounter
--- OUTSIDE RECORDS SUMMARY | 2024-09-07 11:11 | XMS_ITS | Encounter Summary ---
Author Organization [facility] Address [facility] [place] [address] Care Team Providers Care Cotton Ginner Name Role Phone Yoel Artis Ute ALCALA Primary Care Provider [phone] Encounter Details Date Type Department Care Team (Late st Contact Info) Description 07/29/2024 Orders [place] [address] Susannah Watts PA [facility] [place] [address] Social History Tobacco Use Types Packs/Day Years Used Date Smoking Tobacco: Former Cigarettes Smokeless Tobacco: Never Alcohol Use Standard Drinks/Week Comments Not Currently 0 (1 standard drink = 0.6 oz pur e alcohol) [facility] Utilities Answer Date Recorded In the past 12 months has [employer] system, gas, oil, or water t[employer] threatened to shut off services in your [...] time in the past [address] [facility], were you homeless or living [...] AM EST Office Visit Cardiology at [address] [phone] Mushtaq Murphy APRN documented as of this encounter Procedures Procedure Name Priority Date/Time Associated Diagnosis Comments ECHOCARDIOGRAM TRANSTHORACIC Routine 07/30/2024 1:41 AM EST documented in this encounter Results * Echocardiogram Transthoracic (07/30/2024 1:41 AM EST) Anatomical Region Laterality Modality Cardiac Other 07/30/2024 1:41 AM EST Narrative 07/30/2024 8:23 AM EST [address] [place] [address] ? Echocardiogram Report Name: KOREY BERMUDEZ ? Study Date: 07/30/2024 01:41 AM : 1950 ? Height: 168 cm Age: 74 yrs ? Weight: 5.9 kg Gender: Male ?BSA: 0.63 m2 Performed By: Beatris Ching MD Reason For Study: STEMI, [place] History: ASCVD, HTN, HLD Interpreting Fellow: Beatris Ching. Interpretation Summary This is a limited study performed by a fellow senior validation engineer to evaluate for cardiogenic shock with [...] study available for comparison. Procedure Limited - 82579. Suboptimal quality. There is sinus bradycardia. Left [...] Note Kathleen Banda MD - 07/30/2024 [address] [place] [address] Echocardiogram Report Name: LARA KOREY Kyrie Study Date: 07/30/2024 01:41AM : 1950 Height: 168 cm Age: 74 yrs Weight: 5.9 kg Gender: Male BSA: 0.63 m2 Performed By: Beatris Ching MD Reason For Study: STEMI, VT History: ASCVD, HTN, HLD Interpreting Fellow: Beatris Ching. Interpretation Summary This is a limited study performed by a fellow senior validation engineer to evaluate forcardiogenic shock with impella [...] study available for comparison. Procedure Limited - 55570. Suboptimal quality. There is sinus bradycardia. Left [...] on filedocumented in this encounter Care Teams Cotton Ginner Relationship Specialty Start Date End Date Yoel Artis APRN [address] [place] [place] [address] PCP - General Internal Medicine 11/18/22 07/29/24 documented as of this encounter
--- OUTSIDE RECORDS SUMMARY | 2024-09-07 11:11 | XMS_ITS | Encounter Summary ---
Author Organization [facility] [place] [address] Care Team Providers Care Csm Consultant Name Role Phone Yoel Artis APRN Primary Care Provider Encounter Details Date Type Department Care Team (Late st Contact Info) Description 12/23/2022 8:20 AM EDT - 12/23/2022 11:59 PM EDT Hospital Encounter [facility] [address] [place] [address] Yoel Artis APRN [address] [place] [address] Discharge Disposition: Home Social History Tobacco Use [...] AM EST Office Visit Cardiology at [address] [address] Mushtaq Murphy APRN documented as of this encounter Procedures Procedure Name Priority Date/Time Associated Diagnosis Comments PSA SCREEN Routine 12/23/2022 8:43 AM EDT documented in this encounter Results * (ABNORMAL) PSA Screen (12/23/2022 8:43 AM EDT) PSA Screen 4.37(H) 0.00 - 4.00 ng/mL [facility] Comment: PLEASE NOTE: The above reference [...] Artis APRN CHEMISTRY ORDERABLES Performing Organization Address City/State/[facility] Co de Phone Number [facility] [place] [address] documented in this encounter Visit Diagnoses Not on filedocumented in this encounter Care Teams Csm Consultant Relationship Specialty Start Date End Date Yoel Artis APRN [address] [place] [address] PCP - General Internal Medicine 11/18/22 07/29/24 documented as of this encounter
--- OUTSIDE RECORDS SUMMARY | 2024-09-07 11:11 | XMS_ITS | Encounter Summary ---
Author Organization [facility] [place] [address] Care Team Providers Care Atg Architect Name Role Phone Alexia Mtz BEAUTY CONSULTANT Primary Care Provider [phone] Encounter Details Date Type Department Care Team (Late st Contact Info) Description 06/25/2024 [place] [address] Aubrey Cali MD [address] [place] [address] Pyuria Social History Tobacco Use Types Packs/Day [...] AM EST Office Visit Cardiology at [address] [phone] Mushtaq Murphy APRN documented as of this encounter Procedures Procedure Name Priority Date/Time Associated Diagnosis Comments URINE CULTURE Routine 06/25/2024 11:55 AM EDT Pyuria documented in this encounter Results * Urine culture (06/25/2024 11:55 AM EDT) Urine Culture No growth 06/26/2024 12:22 PM EDT [facility] Urine URINE SPECIMEN OBTAINED BY CLEAN CATCH PROCEDURE / Unknown 06/25/2024 11:55 AM EDT 06/25/2024 5:18 PM EDT Aubrey Cali MD MICROBIOLOGY - GENER AL ORDERABLES [facility] [place] [address] documented in this encounter Visit Diagnoses Diagnosis Pyuria Other nonspecific finding on examination of urine documented in this encounter Care Teams Atg Architect Relationship Specialty Start Date End Date Alexia Mtz, BEAUTY CONSULTANT [address] [place] [address] PCP - General Family Medicine 07/30/24 documented as of this encounter
--- OUTSIDE RECORDS SUMMARY | 2024-09-07 11:11 | XMS_ITS | Encounter Summary ---
[place] [address] Care Team Providers Care Projector Operator Name Role Phone Yoel Artis FREDRICK Primary Care Provider [phone] Encounter Details Date Type Department Care Team (Late st Contact Info) Description 01/16/2024 Interpretation Only [facility] [address] [place] [address] Chaparro Montana MD [address] [place] [address] Social History Tobacco Use Types Packs/Day Years [...] AM EST Office Visit Cardiology at [address] [address] Mushtaq Murphy APRN documented as of this encounter Procedures Procedure Name Priority Date/Time Associated Diagnosis Comments CT HEAD WO CONTRAST (GENERIC) STAT 01/16/2024 4:17 PM EDT documented in this encounter Results * CT Head wo Contrast (Generic) (01/16/2024 4:17 PM EDT) PT CLASS E RAD ADMITDTTM [id number] RAD PT RAD INFO [id number]^Haniss henry^Chaparro RAD EXAM DESC CTHEAD^CT Head w/o Contrast^[facility] WORKSTATION ID RADDRIMAGE [facility] Anatomical Region Laterality Modality Head [...] first. Electronically signed by: Alejandro Tenorio MD, [facility]([phone]), at 01/16/2024 4:25 PM Chaparro Montana MD IMG CT ORDERABLES documented in this encounter Visit Diagnoses Not on filedocumented in this encounter Care Teams Projector Operator Relationship Specialty Start Date End Date Yoel Artis APRN [address] [place] [address] PCP - General Internal Medicine 11/18/22 07/29/24 documented as of this encounter
--- OUTSIDE RECORDS SUMMARY | 2024-09-07 11:11 | XMS_ITS | Encounter Summary ---
[place] [address] Care Team Providers Care Line Installer Trolley Name Role Phone Yoel Artis Ute ALCALA Primary Care Provider [phone] Encounter Details Date Type Department Care Team (Late st Contact Info) Description 08/26/2023 Telephone [place] [phone] Madelyn Vasquez Social History Tobacco Use Types [...] - 08/26/2023 9:23 AM EST Korey Montoya [id number] Diagnosis/Indication: Rectal pain, fecal smearing Please review [...] ever had a/an Colonoscopy before? Yes: Date [id number] ago [facility] If yes, did you have any [...] your procedure. Who will likely be your emergency detail driver for the procedure? Please Verify the [...] AM EST Office Visit Cardiology at [address] [address] Mushtaq Murphy APRN documented as of this encounter Visit Diagnoses Not on filedocumented in this encounter Care Teams Line Installer Trolley Relationship Specialty Start Date End Date Yoel Artis APRN [address] [place] [address] PCP - General Internal Medicine 11/18/22 07/29/24 documented as of this encounter
--- OUTSIDE RECORDS SUMMARY | 2024-09-07 11:11 | XMS_ITS | Encounter Summary ---
Author Organization [facility] [place] [address] Care Team Providers Care Levelman Name Role Phone Yoel Artis APRN Primary Care Provider [phone] Reason for Referral * Consultation (Routine) - Closed Specialty Diagnoses / Procedures Referred By Theodore muro Referred To Contact Gastroenterology Diagnoses Anal spasm anal spasm Yoel Artis APRN [address] [place] [address] [facility] [address] [place] [address] Referral ID Status Reason Start Date Expiration Date V isits Requested Visits Authorized [id number] Closed Consult, Test & Treat PCP Updated and/or Approved 05/26/2023 05/25/2024 6 6 Encounter Details Date Type Department Care Team (Late st Contact Info) Description 05/26/2023 Transcribe Orders eDH Incoming Referrals [phone] Yoel Artis APRN [address] [place] [address] Anal spasm Social History Tobacco [...] AM EST Office Visit Cardiology at [address] [address] Mushtaq Murphy APRN Scheduled Referrals Name Type Priority Associated Diagnoses Order Schedule Referral to Gastroenterology Outpatient Referral Routine Anal spasm Ordered: 05/26/2023 documented as of this encounter Visit Diagnoses Diagnosis Anal spasm documented in this encounter Care Teams Levelman Relationship Specialty Start Date End Date Yoel Artis APRN [address] [place] [address] PCP - General Internal Medicine 11/18/22 07/29/24 documented as of this encounter
--- OUTSIDE RECORDS SUMMARY | 2024-09-07 11:11 | XMS_ITS | Encounter Summary ---
Author Organization [facility] [place] [address] Care Team Providers Care Investment Banker Name Role Phone Yoel Artis Ute ALCALA Primary Care Provider [phone] Reason for Visit * Auth/Cert (Routine) Specialty Diagnoses / Procedures Referred By Conteleazar t Referred To Contact Diagnoses Anal spasm Fecal smearing Constipation, unspecified Rectal pain, fecal smearing Procedures PRO COLONOSCOPY, DIAGNOSTIC PRO COLONOSCOPY, BIOPSY PRO COLONOSCOPY, REMV LESN, SNARE COLONOSCOPY, DIAGNOSTIC (WRVU 3.26) Brandan Mcgovern MD [facility] [address] [facility] Referral ID Status Reason Start Date Expiration Date Visits Re quested Visits Authorized [id number] 1 1 Encounter Details Date Type Department Care Team (Late st Contact Info) Description 08/30/2023 11:00 AM EST - 08/30/2023 12:00 PM EST [place] [address] Brandan Mcgovern MD [facility] [place] [address] COLONOSCOPY, POLYPECTOMY, REMOVAL LESION BY SNARE (WRVU [...] occurs, please contact your Doctor. Please call [phone] before 8pm Mon-Fri with problems, questions or concerns. If you call after 8pm or on weekends, call the Hospital at [phone] and ask to speak to the Ice Cream Mixer quality control lab tech and the package line relief operator will contact that person for you. When should you call for help? Call [phone] anytime you think you may need emergency [...] any problems. Where can you learn more? [facility] View your After Visit Summary and more online at [email or web address] If you would like to provide feedback about your hospital experience, please call the Office of Patient and Family Relations at . If you have received this After Visit Summary in error, please immediately return it in person to the department, or notify the [facility] Privacy Office by calling toll free at between the hours of 8AM and 5PM to arrange for our retrieval of the documents at no cost to you. Content Version: 12.2 ?? [id number] Auth0. Care instructions adapted under license by [facility]. If you have questions about a medical condition or this instruction, always ask your healthcare professional. [employer]0 disclaims any warranty or liability for your [...] evening. 04/17/2023 08/04/2024 nitroGLYcerin (NITROLINGUAL) 400 mcg/spray [place], Non-AerosolIndications:P roctalgia fugax,Fecal smearing,Constipation, unspecified constipation type [...] AM EST Office Visit Cardiology at [address] [address] Mushtaq Murphy APRN documented as of this encounter Procedures Procedure Name Priority Date/Time Associated Diagnosis Comments SPECIMEN TO PATHOLOGY Routine 08/30/2023 11:23 AM EST SURGICAL PATHOLOGY REPORT Routine 08/30/2023 11:21 AM EST COLONOSCOPY Routine 08/30/2023 10:57 AM EST Colonoscopy, Remv Lesn, Snare ([id number]) 08/30/2023 10:44 AM EST Proctalgia fugax Fecal smearing Constipation, unspecified constipation type documented in this encounter Results * Specimen to Pathology (08/30/2023 11:23 AM EST) AP Specimen 08/30/2023 11:2 3 AM EST 08/30/2023 11:23 AM EST Narrative [facility] - 08/30/2023 11:23 AM EST Specimen requisition ordered. ??Separate Pathology report to follow Brandan Mcgovern MD PATHOLOGY/CYTOLOGY O JOSH Performing Organization Address [facility]/ZIP Co de Phone Number [facility] [place] [address] * Surgical Pathology Report (08/30/2023 11:21 AM EST) Final Diagnosis [id number] ? Location: 4T; EA12; A The signing pathologist has (i) examined the relevant preparation(s) for the specimen(s) and (ii) rendered or confirmed the diagnosis(es). . ?Surgical Pathology DIAGNOSIS A - Sigmoid colon polyp, resection (Multiple): - ??Tubular adenoma. CR-PX Electronically signed by: ?Blake ORTEGA PhD, Yulia Verified: ??09/08/2023 14:48 ??Pathologist Performed at: ??-[facility] Dept. of Pathology, [place] [address] Delivery Department Supervisor: Fercho Chan MD, AP, ??CLIA Certificate: [id number] SPECIMEN(S) SUBMITTED A - Sigmoid colon polyp, resection (Multiple) CLINICAL INFORMATION 73-year-old male, history of rectal pain SPECIMEN PROCESSING A - Labeled/Fixativ e: Sigmoid colon polyp, formalin. Quantity/Size: Single, 0.8 cm. Tissue Description: Soft, candelaria tissue. Sections/Proces sing: Submitted in toto ??in 1 cassette labeled A1. ??sdy 09/08/2023 2:48 PM EST [facility] GI Biopsy 08/30/2023 11:2 1 AM EST 08/30/2023 11:21 AM EST Brandan Mcgovern MD PATHOLOGY/CYTOLOGY O JOSH [facility] [place] [address] [place] [address] * COLONOSCOPY (08/30/2023 10:57 AM EST) [facility] COLONOSCOPY [facility] Endoscopy Procedure Date: 08/30/2023 10:57 AM ? Patient Name: Korey Montoya ? Date of : 1950 ? Age: 73 ? Order #: [id number] ? Instrument Name: [id number] ? Procedure: ? Colonoscopy Indications: ? Rectal [...] preparation was evaluated ? using the BBPS ([place] Bowel ? Preparation Scale) with scores of: [...] RN) documented in this encounter Care Teams Investment Banker Relationship Specialty Start Date End Date Yoel Artis, FREDRICK [address] [place] [address] PCP - General Internal Medicine 11/18/22 07/29/24 documented as of this encounter
--- OUTSIDE RECORDS SUMMARY | 2024-09-07 11:11 | XMS_ITS | Encounter Summary ---
[place] [address] Care Team Providers Care Can Feeder Name Role Phone Alexia Mtz ASBESTOS SIDING INSTALLER Primary Care Provider [phone] Encounter Details Date Type Department Care Team (Late st Contact Info) Description 07/29/2024 External [place] [id number] Social History Tobacco Use Types Packs/Day Years Used Date Smoking Tobacco: Former Cigarettes Smokeless Tobacco: Never Alcohol Use Standard Drinks/Week Comments Not Currently 0 (1 standard drink = 0.6 oz pur e alcohol) [facility] Utilities Answer Date Recorded In [...] AM EST Office Visit Cardiology at [address] [address] Mushtaq Murphy APRN documented as of this encounter Procedures Procedure Name Priority Date/Time Associated Diagnosis Comments MISC EXTERNAL CARDIOLOGY RESULT Routine 07/29/2024 10:13 AM EST documented in this encounter Results * External Cardiology Result (07/29/2024 10:13 AM EST) Anatomical Region Laterality Modality Other Historical Provider EXTERNAL CARDIOLO GY RESULT documented in this encounter Visit Diagnoses Not on filedocumented in this encounter Care Teams Can Feeder Relationship Specialty Start Date End Date Alexia Mtz APRN [address] [place] [address] PCP - General Family Medicine 07/30/24 documented as of this encounter
--- OUTSIDE RECORDS SUMMARY | 2024-09-07 11:11 | XMS_ITS | Encounter Summary ---
[place] [address] Care Team Providers Care Professor In Family Studies Name Role Phone Yoel Artis FREDRICK Primary Care Provider [phone] Encounter Details Date Type Department Care Team (Late st Contact Info) Description 07/28/2024 Interpretation Only [address] [address] Quinten Coffey MD [address] [place] [address] Social History Tobacco Use Types Packs/Day Years [...] AM EST Office Visit Cardiology at [address] [address] Mushtaq Murphy APRN documented as of this encounter Procedures Procedure Name Priority Date/Time Associated Diagnosis Comments XR CHEST ONE VIEW STAT 07/28/2024 10: 22 AM EST documented in this encounter Results * XR Chest One View (07/28/2024 10:22 AM EST) PT CLASS E RAD ADMITDTTM [id number] RAD PT RAD INFO [id number]^Alexx ^Quinten RAD EXAM DESC XCXR1^XR Chest 1 [...] who have questions please contact the health morning caregiver that requested your imaging first. ? [...] patients who have questions please contactthe health morning caregiver that requested your imaging first. Quinten Coffey MD IMG DX ORDERABLES documented in this encounter Visit Diagnoses Not on filedocumented in this encounter Care Teams Professor In Family Studies Relationship Specialty Start Date End Date Yoel Artis APRN [address] [place] [address] PCP - General Internal Medicine 11/18/22 07/29/24 documented as of this encounter
--- OUTSIDE RECORDS SUMMARY | 2024-09-07 11:11 | XMS_ITS | Encounter Summary ---
Author Organization [facility] [place] [address] Care Team Providers Care Cooling Tower Technician Name Role Phone Yoel Artis Ute ALCALA Primary Care Provider [phone] Encounter Details Date Type Department Care Team (Late st Contact Info) Description 07/29/2024 Interpretation Only [facility] [address] [place] [phone] Chaparro Montana MD [address] [place] [address] Social History Tobacco Use Types Packs/Day Years Used Date Smoking Tobacco: Former Cigarettes Smokeless Tobacco: Never Alcohol Use Standard Drinks/Week Comments Not Currently 0 (1 standard drink = 0.6 oz pur e alcohol) [facility] Utilities Answer Date Recorded In the past 12 months has [employer], gas, oil, or water [employer] threatened to shut off services in your [...] AM EST Office Visit Cardiology at [address] [address] Mushtaq Murphy APRN documented as of this encounter Procedures Procedure Name Priority Date/Time Associated Diagnosis Comments XR CHEST ONE VIEW STAT 07/29/2024 10: 50 AM EST documented in this encounter Results * XR Chest One View (07/29/2024 10:50 AM EST) PT CLASS E RAD ADMITDTTM [id number] RAD PT RAD MD INFO [id number]^Jordy henry^Chaparro RAD EXAM DESC XCXR1^XR Chest 1 [...] rn that requested your imaging first. ? Narrative [...] manager rn that requested your imaging first. Chaparro Montana MD IMG DX ORDERABLES documented in this encounter Visit Diagnoses Not on filedocumented in this encounter Care Teams Cooling Tower Technician Relationship Specialty Start Date End Date Yoel Artis APRN [address] [place] [id number] PCP - General Internal Medicine 11/18/22 07/29/24 documented as of this encounter
--- OUTSIDE RECORDS SUMMARY | 2024-09-07 11:11 | XMS_ITS | Encounter Summary ---
Author Organization [facility] [place] [address] Care Team Providers Care Administrative Clerk Name Role Phone Yoel Artis APRN Primary Care Provider Reason for Referral * Consultation (Routine) - Closed Specialty Diagnoses / Procedures Referred By Theodore muro Referred To Contact Gastroenterology Diagnoses Proctalgia fugax Fecal smearing Constipation, unspecified constipation type group Yoel Dangelo APRN [facility] [place] [address] Paulette Glynn, PhD [facility] [place] [address] Referral ID Status Reason Start Date Expiration Date V isits Requested Visits Authorized [id number] Closed Consult, Test & Treat 06/01/2023 05/31/2024 1 1 Reason for Visit * Consultation (Routine) - Closed Specialty Diagnoses / Procedures Referred By Theodore muro Referred To Contact Gastroenterology Diagnoses Anal spasm motility- anal spasms Yoel Artis APRN [address] [place] [address] [facility] [address] [place] [address] Referral ID Status Reason Start Date Expiration Date V isits Requested Visits Authorized [id number] Closed Consult, Test & Treat PCP Updated and/or Approved 11/18/2022 11/18/2023 6 6 Encounter Details Date Type Department Care Team (Latest Contact Info) Description 06/01/2023 8:00 AM EDT TH Visit (TeleHealth) [place] [address] Yoel Dangelo, WATER RESOURCE AGENT [facility] [place] [address] Proctalgia fugax; Fecal smearing; Constipation, unspecified constipation [...] hear from us within 1 week: Clinic [phone] Motility Lab scheduling [phone] Endoscopy scheduling- [phone] Diagnostics: -Colonoscopy for rectal pain -Anorectal manometry [...] connection and our services, please visit the [facility] Behavioral health website at: [email or web address]. Our hope is that through these classes, [...] please contact your insurance company or the [facility] billing office ([email or web address]). Your insurance company may request a CPT code if you ask about coverage. [place] [address]. If you're interested in attending any of these classes or workshops, please reach out to our scheduling team via [facility] or phone ([phone]). You should start a fiber supplement if [...] Handout for Patients and Primary Care Providers [facility] What are functional bowel disorders? These are the most common type of gastrointestinal disorders in the [facility] The most common functional bowel disorder in the [facility] is irritable bowel syndrome (IBS) [...] what is the impact? 15-20% of general [place] population has IBS or FD or both 2nd most common cause for lost work days (after common cold) in [place] Estimated $30 billion dollar cost to [place] economy per year These disorders can have [...] with immediate onset of symptoms after infection); alf symptoms are expected in most patients however [...] to you primary care provider and/or local railroad carman and share this document. Treatment of functional [...] - this approach benefits most patients OTC (mbfs-zjy-qkksiiz) medications can be used for ongoing bothersome symptoms as listed below Your provider (PCP or local Gastroenterology provider or Count Includes [facility] Gastroenterology provider) may decide to use [...] All-Bran psyllium buds, Metamucil, Konsyl, bulk psyllium ([employer] stores and [employer] stores) Specifically we recommend starting Metamucil or [...] but convincing medical evidence is still lacking Ymbi-sgo-avuufoi supplements including probiotics are not typically evaluated [...] to decrease antibiotic-associated diarrhea and antibiotic-related infections Yoya-rom-Msoocjz Medications for Functional Gut Disorders Based on [...] a stool softener that is safe for termination clerk usage (no risk of dependency) andthe dosage [...] (GERD) Often a combination of anti-nausea medications (wehh-qzv-fbbvwoc or prescription) works better thanhigh doses of [...] for misuse/misinterpretation of this information Patient Resources [place] [employer] https://www.gastro.org/practice-guidance/rq-yftsrhi-hmxste/ topic/roxssorbt-xeifq-qlqrexku-ibs Badgut.org https://badgut.org/information-centre/i-l-enlkppybi-topics/ibs/ AboutIBS.org https://www.aboutibs.org/ Uptodate.com https://www.uptodate.com/contents/pildtikkw-cvetq-zhvlfpre-yhgedr-zim-nxszfa documented in this encounter Progress Notes * [...] recommendations above. The patient was located in [place] at the time of their visit. TIME SPENT WITH PATIENT Time spent reviewing records prior to this encounter on day of appointment: 2 minutes Time spent during encounter with patient including counselin minutes Time spent documenting encounter after office visit: 7 minutes Yoel Dangelo APRN [facility] [place] [address] documented in this encounter Plan of Treatment Upcoming Encounters Date Type Department Care Team (Late st Contact Info) Description 10/01/2024 10:00 AM EST Office Visit Cardiology at [address] [place] [address] Mushtaq Murphy APRN Scheduled Orders Name Type [...] type documented in this encounter Care Teams Administrative Clerk Relationship Specialty Start Date End Date Yoel Artis APRN [address] [place] [address] PCP - General Internal Medicine 11/18/22 07/29/24 documented as of this encounter
--- OUTSIDE RECORDS SUMMARY | 2024-09-07 11:11 | XMS_ITS | Encounter Summary ---
[place] [address] Care Team Providers Care Chef Head Name Role Phone Yoel Artis Ute ALCALA Primary Care Provider [phone] Reason for Visit * Auth/Cert (Routine) Specialty Diagnoses / Procedures Referred By Theodore t Referred To Contact Diagnoses STEMI (ST elevation myocardial infarction) STEMI Procedures ER IPI Vahe Marvin MD [facility] [place] [address] [facility] Referral ID Status Reason Start Date Expiration Date Visits Re quested Visits Authorized [id number] 1 1 Encounter Details Date Type Department Care Team (Late st Contact Info) Description 07/29/2024 12:00 PM EST - 07/29/2024 12:54 PM EST Surgery [place] [address] Vahe Marvin MD [facility] [place] [address] CARDIAC CATHETERIZATION Social History Tobacco Use Types Packs/Day Years Used Date Smoking Tobacco: Former Cigarettes Smokeless Tobacco: Never Alcohol Use Standard Drinks/Week Comments Not Currently 0 (1 standard drink = 0.6 oz pur e alcohol) [facility] Utilities Answer Date Recorded In the past 12 months has [employer], gas, oil, or water company threatened [...] Korey Montoya Patient Age: 74 y.o. Language: Belgian Race: White Ethnicity: Not nor Admit date: [...] please contact your inpatient physician through the [facility] Hand Shaker . Issues afterhours and on weekends will [...] EKG. Patient transferred via air ambulance to [facility] on 07/29 for LHC and LOW to [...] EKG. Was transferred via air ambulance to [facility] for further management and LHC demonstrated 100% occlusion. No significant RCA, LMCA, or LCX disease. LOW placed in LAD with some residual distal disease meriting placement of overlapping distal stent. TTE showed apical akinesis and inferior hypokinesis with EF 20%. RHC showed elevated filling pressures. Impella placed and P-level 6 at time of transfer to [facility]. CI initially 1.97, improved to [...] the next year. Access was via right PHARMACEUTICAL OPERATOR and this sitewas clean, dry and [...] for Chest pain. Replaces: nitroGLYcerin 400 mcg/spray [place], Non-Aerosol 0.4 mg Quantity: 90 tablet Refills: [...] Refills: 0 STOPPED Medications nitroGLYcerin 400 mcg/spray [place], Non-Aerosol Commonly known as: NITROLINGUAL Replaced by: [...] of one year. After this time, your bottle sorter will determine if you need to continue [...] away. Stay on the phone. The emergency tar and ammonia pump operator will tell you what to do. [...] appointments: During 8am-5pm Tuesday through Tuesday call [phone] to speak with a nurse in the cardiology clinic All other times call [phone] and ask to speak to the machinery cleaner educational manager. Follow up Appointments: PCP Alexia Mtz, EXAM PROCTOR [phone]. Please call to establish a follow up appointment within 1-2 weeks of discharge. Cardiology. Referral to heart failure has been sent. General Instructions None Future Appointments and Orders Future Orders Complete By Expires Referral to Cardiac Rehab [GLP413 Custom] As directed Process Instructions: If no progress note charted, please enter Clinical details in comments. Scheduling Instructions: Questions: My question or request is: STEMI, PCI- cardiac rehab at [facility] Referral to Cardiology [REF12 Custom] [...] of one year. After this time, your bottle sorter will determine if you need to continue [...] away. Stay on the phone. The emergency tar and ammonia pump operator will tell you what to do. [...] appointments: During 8am-5pm Tuesday through Tuesday call [phone] to speak with a nurse in the cardiology clinic All other times call [phone] and ask to speak to the machinery cleaner educational manager. Follow up Appointments: PCP Alexia Mtz, EXAM PROCTOR [phone]. Please call to establish a follow up [...] EKG. Patient transferred via air ambulance to [facility] on 07/29 for LHC and OLW to LAD for 100% occlusion Social History: Pt lives with his in a 1 level home with 2 NAOMI. 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 He [...] Total time: 35 (tef) minutes Time IN/OUT: [id number] ZAIDA DUBOSE PT Pager: [phone] Physical Therapy Inpatient Rehabilitation Department * Yrn Velazquez MD - 08/03/2024 10:38 AM EST CV HOSPITALIST 2 - [facility] DAILY PROGRESS NOTE Page [phone] to reach a provider 04/04 Admit Date: [...] or before 29-JUL-2024) Lateral injury pattern ACUTE TX / STEMI Abnormal ECG When compared with [...] to the overnight study by the educational manager fellow the impella position is stable. 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 [facility] 07/29/24 Conclusions: * One vessel coronary artery disease (LAD) * Mild pulmonary hypertension * Elevated pulmonary capillary wedge pressure * Successful stent insertion of the proximal LAD lesion * See Dual Antiplatelet (DAPT) Recommendations above * Successful impella placement for cardiogenic shock. Telemetry: I have personally reviewed and interpreted the telemetry from the last 24 hours. [facility] ASSESSMENT: Korey Montoya is a 74 y.o. male w/ PMH of hypertension, HLD, and BPH who presents for chief concern of chest pain after being found to have ST elevations on EKG. Patient transferred via air ambulance to [facility] on 07/29 for LHC and LOW to [...] be determined OT: PCP Alexia Mtz, FREDRICK [phone] * Zaida Dubose, PT - 08/02/2024 2:08 PM EST Physical Therapy Evaluation Patient profile: Korey Montoya is a 74 y.o. male w/ PMH of hypertension, HLD, and BPH who presents for chief concern of chest pain after being found to have ST elevations on EKG. Patient transferred via air ambulance to [facility] on 07/29 for LHC and LOW to LAD for 100% occlusion Social History: Pt lives with his in a 1 level home with 2 NAOMI. 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 He drives. home to assist as needed. Precautions/Special Considerations: At risk to fall; recent STEMI Mobility and Positioning Recommendations: OOB to chair with 1 cg assist; rolling walker Pt to ambulate 3-4x/daily with 1 assist; walker or trial without device Please encourage up to chair for meal times as able. Pt seen for evaluation today in the [facility]. Pt in the bed at [...] Total time: 37 (eval) minutes Time IN/OUT: [id number] ZAIDA DUBOSE PT Pager: [phone] Physical Therapy Inpatient Rehabilitation Department * Gagan [...] EKG. Patient transferred via air ambulance to [facility] on 07/29 for LHC and LOW to LAD for 100% occlusion. TTE showed apical akinesis and inferior hypokinesis with EF 20%. RHC showed elevated filling pressures. Impella placed and P-level 6 at time of transfer to [facility]. CI initially 1.97, improved to [...] PCP: Alexia Mtz APRN PCP phone number: [phone] Date of Admission: 07/29/2024 ( Hospital Day 4 days ) Attending:Bridgette Stauffer MD ID: Korey Montoya is a 74 y.o. male w/ PMH of hypertension, HLD, and BPH on Hospital Day4 for chief concern of chest pain after being found to have ST elevations on EKG. Patient transferred via air ambulance to [facility] on 07/29 for LHC and LOW to [...] 07/29/24 1621 PHART 7.48* 7.44 7.38 7.37 UPE4BCN 29* 29* 34* 36 PO2ART 71* 109* 141* 71* [id number] 20.6 19.4* 19.5* 20.4 VBG (Venous Blood Gas) Recent Labs 07/29/24 1401 PHVEN 7.30* PO2VEN 39 DZE9JVB 20.1* Mixed Venous Sat No results for input(s): L6IFCF3 in the last 168 hours. Objective: Vitals [...] 07/29/24 1621 PHART 7.48* 7.44 7.38 7.37 YDM1JKW 29* 29* 34* 36 PO2ART 71* 109* 141* 71* APA4FQE 20.6 19.4* 19.5* 20.4 VBG (Venous Blood Gas) Recent Labs 07/29/24 1401 PHVEN 7.30* PO2VEN 39 FXT8KOT 20.1* Mixed Venous Sat No results for input(s): K3UUGW3 in the last 168 hours. Microbiology: Microbiology Results (Last 30 days) Procedure Component Value Units Date/Time Blood culture [[id number]] Collected: 07/29/24 160 Lab Status: Preliminary result Specimen: Blood, Venous Updated: 08/01/24 170 Blood Culture No growth at 72 hours Blood culture [[id number]] Collected: 07/29/241607 Lab Status: Preliminary result Specimen: Blood, Venous Updated: 08/01/24 170 Blood Culture No growth at 72 hours Imaging: Results for orders placed or performed during the hospital encounter of 07/29/24 XR Chest One View (Exam End: 07/29/2024 2:30 PM) Result Value WORKSTATION ID [id number] Impression 1. No pulmonary edema. 2. No pleural effusion. 3. No pneumothorax. Thank you for letting us participate in the care of this patient. If you are a health care provider and have any questions regarding this report, please contact the number below. For patients who have questions please contact the health health care specialist that requested your imaging first. Electronically signed by: Chris Candelaria MD, [facility] ([phone]), at 07/29/2024 3:21 PM TTE ( 07/30/24) [...] to the overnight study by the educational manager fellow the impella position is stable. The [...] EKG. Patient transferred via air ambulance to [facility] on 07/29 for LHC and LOW to [...] Transfer to floor. Krystal Parker MD, [facility], [facility] Staff Beam Dyer Operator cytology technologist * Gagan Catherine MD - 08/01/2024 11:12 [...] EKG. Patient transferred via air ambulance to [facility] on 07/29 for LHC and LOW to LAD for 100% occlusion. TTE showed apical akinesis and inferior hypokinesis with EF 20%. RHC showed elevated filling pressures. Impella placed and P-level 6 at time of transfer to [facility]. CI initially 1.97, improved to 2.2 After impella. Received about 3 L of fluid during procedural course. Patient initially required norepinephrine 30, epinephrine 10, and vasopressin 0.04 for hemodynamic support, which was weaned upon arrival to [facility] to norepinephrine 20and levo 0.04 [...] PCP: Alexia Mtz APRN PCP phone number: [phone] Date of Admission: 07/29/2024 ( Hospital Day 3 days ) Attending:Krystal Parker MD ID: Korey Montoya is a 74 y.o. male w/ PMH of hypertension, HLD, and BPH on Hospital Day3 for chief concern of chest pain after being found to have ST elevations on EKG. Patient transferred via air ambulance to [facility] on 07/29 for LHC and LOW to [...] 07/29/24 1621 PHART 7.48* 7.44 7.38 7.37 [id number] 29* 29* 34* 36 PO2ART 71* 109* 141* 71* IEG9SFJ 20.6 19.4* 19.5* 20.4 VBG (Venous Blood Gas) Recent Labs 07/29/24 1401 PHVEN 7.30* PO2VEN 39 TUS1URO 20.1* Mixed Venous Sat No results for input(s): A5TGKB9 in the last 168 hours. PA Catheter [...] 07/29/24 1621 PHART 7.48* 7.44 7.38 7.37 ECJ1TOL 29* 29* 34* 36 PO2ART 71* 109* 141* 71* UDS9HHT 20.6 19.4* 19.5* 20.4 VBG (Venous Blood Gas) Recent Labs 07/29/24 1401 PHVEN 7.30* PO2VEN 39 QEL6RHU 20.1* Mixed Venous Sat No results for input(s): J6TJYY1 in the last 168 hours. Microbiology: Microbiology Results (Last 30 days) Procedure Component Value Units Date/Time Blood culture [[id number]] Collected: 07/29/241607 Lab Status: Preliminary result Specimen: Blood, Venous Updated: 07/31/241700 Blood Culture No growth at 48 hours Blood culture [[id number]] Collected: 07/29/241607 Lab Status: Preliminary result Specimen: Blood, Venous Updated: 07/31/241700 Blood Culture No growth at 48 hours Imaging: Results for orders placed or performed during the hospital encounter of 07/29/24 XR Chest One View (Exam End: 07/29/2024 2:30 PM) Result Value WORKSTATION ID [id number] Impression 1. No pulmonary edema. 2. No pleural effusion. 3. No pneumothorax. Thank you for letting us participate in the care of this patient. If you are a health care provider and have any questions regarding this report, please contact the number below. For patients who have questions please contact the health health care specialist that requested your imaging first. Electronically signed by: Chris Candelaria MD, [facility] ([phone]), at 07/29/2024 3:21 PM TTE ( 07/30/24) [...] to the overnight study by the educational manager fellow the impella position is stable. The [...] EKG. Patient transferred via air ambulance to [facility] on 07/29 for LHC and LOW to [...] him; questions answered. Krystal Parker MD, [facility], [facility] Staff Beam Dyer Operator cytology technologist * Krystal Parker MD - 07/31/2024 1:06 [...] EKG. Patient transferred via air ambulance to [facility] on 07/29 for LHC and LOW to LAD for 100% occlusion. TTE showed apical akinesis and inferior hypokinesis with EF 20%. RHC showed elevated filling pressures. Impella placed and P-level 6 at time of transfer to [facility]. CI initially 1.97, improved to 2.2 After impella. Received about 3 L of fluid during procedural course. Patient initially required norepinephrine 30, epinephrine 10, and vasopressin 0.04 for hemodynamic support, which was weaned upon arrival to [facility] to norepinephrine 20and levo 0.04 [...] PCP: Alexia Mtz APRN PCP phone number: [phone] Date of Admission: 07/29/2024 ( Hospital Day 2 days ) Attending:Krysatl Parker MD ID: Korey Montoya is a 74 y.o. male w/ PMH of hypertension, HLD, and BPH on Hospital Day2 for chief concern of chest pain after being found to have ST elevations on EKG. Patient transferred via air ambulance to [facility] on 07/29 for LHC and LOW to [...] 0057 07/29/24 1621 PHART 7.44 7.38 7.37 HOW8OWU 29* 34* 36 PO2ART 109* 141* 71* DMA1KVJ 19.4* 19.5* 20.4 VBG (Venous Blood Gas) Recent Labs 07/29/24 1401 PHVEN 7.30* PO2VEN 39 EUU7PKE 20.1* Mixed Venous Sat No results for input(s): N6OFNN7 in the last 168 hours. PA Catheter [...] 0057 07/29/24 1621 PHART 7.44 7.38 7.37 PFR8HVL 29* 34* 36 PO2ART 109* 141* 71* IAB8WPP 19.4* 19.5* 20.4 VBG (Venous Blood Gas) Recent Labs 07/29/24 1401 PHVEN 7.30* PO2VEN 39 DMW8WEU 20.1* Mixed Venous Sat No results for input(s): Q4IENH3 in the last 168 hours. Microbiology: Microbiology Results (Last 30 days) Procedure Component Value Units Date/Time Blood culture [[id number]] Collected: 07/29/241607 Lab Status: Preliminary result Specimen: Blood, Venous Updated: 07/30/241700 Blood Culture No Growth at 18-24 hrs. Blood culture [[id number]] Collected: 07/29/241607 Lab Status: Preliminary result Specimen: Blood, Venous Updated: 07/30/241700 Blood Culture No Growth at 18-24 hrs. Imaging: Results for orders placed or performed during the hospital encounter of 07/29/24 XR Chest One View (Exam End: 07/29/2024 2:30 PM) Result Value WORKSTATION ID [id number] Impression 1. No pulmonary edema. 2. No pleural effusion. 3. No pneumothorax. Thank you for letting us participate in the care of this patient. If you are a health care provider and have any questions regarding this report, please contact the number below. For patients who have questions please contact the health health care specialist that requested your imaging first. Electronically signed by: Chris Candelaria MD, [facility] ([phone]), at 07/29/2024 3:21 PM TTE ( 07/30/24) [...] to the overnight study by the educational manager fellow the impella position is stable. The [...] EKG. Patient transferred via air ambulance to [facility] on 07/29 for LHC and LOW to [...] work to optimize volume status while continuing zcctcoc-dnacjn-lzlmdstogk therapies at this time. Obtain comprehensive TTE. [...] EKG. Patient transferred via air ambulance to [facility] on 07/29 for LHC and LOW to LAD for 100% occlusion. TTE showed apical akinesis and inferior hypokinesis with EF 20%. RHC showed elevated filling pressures. Impella placed and P-level 6 at time of transfer to [facility]. CI initially 1.97, improved to 2.2 After impella. Received about 3 L of fluid during procedural course. Patient initially required norepinephrine 30, epinephrine 10, and vasopressin 0.04 for hemodynamic support, which was weaned upon arrival to [facility] to norepinephrine 20and levo 0.04 [...] PCP: Yoel Artis APRN PCP phone number: [phone] Date of Admission: 07/29/2024 ( Hospital Day 1 day ) Attending:Aubree Silverio MD ID: Korey Montoya is a 74 y.o. male w/ PMH of hypertension, HLD, and BPH on Hospital Day1 for chief concern of chest pain after being found to have ST elevations on EKG. Patient transferred via air ambulance to [facility] on 07/29 for LHC and LOW to [...] 0057 07/29/24 1621 PHART 7.44 7.38 7.37 JFP5QOR 29* 34* 36 PO2ART 109* 141* 71* FHD9JED 19.4* 19.5* 20.4 VBG (Venous Blood Gas) Recent Labs 07/29/24 1401 PHVEN 7.30* PO2VEN 39 LIZ9QIZ 20.1* Lactate ( Last 12 hours) 1.3 >> 1.2 Mixed Venous Sat No results for input(s): U0FNPL8 in the last 168 hours. PA Catheter [...] 0057 07/29/24 1621 PHART 7.44 7.38 7.37 MPH9FKK 29* 34* 36 PO2ART 109* 141* 71* QAT1PEG 19.4* 19.5* 20.4 VBG (Venous Blood Gas) Recent Labs 07/29/24 1401 PHVEN 7.30* PO2VEN 39 XFY2JMA 20.1* Mixed Venous Sat No results for input(s): L1YSWZ2 in the last 168 hours. Microbiology: Microbiology Results (Last 30 days) Procedure Component Value Units Date/Time Blood culture [[id number]] Collected: 07/29/24 1608 Lab Status: In process Specimen: Blood, Venous Updated: 07/29/24 1626 Blood culture [[id number]] Collected: 07/29/24 1608 Lab Status: In process Specimen: Blood, Venous Updated: 07/29/24 1615 Imaging: Results for orders placed or performed during the hospital encounter of 07/29/24 XR Chest One View (Exam End: 07/29/2024 2:30 PM) Result Value WORKSTATION ID [id number] Impression 1. No pulmonary edema. 2. No pleural effusion. 3. No pneumothorax. Thank you for letting us participate in the care of this patient. If you are a health care provider and have any questions regarding this report, please contact the number below. For patients who have questions please contact the health health care specialist that requested your imaging first. Medications Scheduled [...] EKG. Patient transferred via air ambulance to [facility] on 07/29 for LHC and LOW to [...] EKG. Patient transferred via air ambulance to [facility] on 07/29 for LHC and LOW to [...] EKG. Was transferred via air ambulance to [facility] for further management and C demo nstrated 100% occlusion. No significant RCA, LMCA, or LCX disease. LOW placed in LAD with some residual distal disease meriting placement of overlapping distal stent. TTE showed apical akinesis and inferior hypokinesis with EF 20%. RHC showed elevated filling pressures. Impella placed and P-level 6 at time of transfer to [facility]. CI initially 1.97, improved to 2.2 After impella. Received about 3 L of fluid during procedural course. Patient initially required norepinephrine, epinephrine, and vasopressin for hemodynamic support, which was weaned upon arrival to [facility] to norepinephrine 20 and levo [...] (WRVU 4.57) performed by Brandan Mcgovern MD [facility] ENDOSCOPY Significant Family History: Family [...] mouth. Past Week nitroGLYcerin (NITROLINGUAL) 400 mcg/spray [place], Non-Aerosol 1 spray to anus for proctalgia [...] 3.5 guiding catheter and a 3.[address] [place] [address] 20 Mhz using Manual pullback. Imaging [...] priority for the procedure was Emergent. The [facility] indication for the procedure was [...] A premounted 3.00 x 22 mm [place] (LOW) was deployed with a maximum inflation [...] atmospheres. A premounted 3.00 x 08 mm [place] (LOW) was deployed with a maximum inflation [...] limited study performed by a fellow educational manager to evaluate for cardiogenic shock with impella [...] to the overnight study by the educational manager fellow the impella position is stable. The [...] EKG. Patient transferred via air ambulance to [facility] on 07/29 for LHC and LOW to [...] PCP: Yoel Artis APRN PCP phone number: [phone] Date of Admission: 07/29/2024 ( Hospital Day 0 days ) Attending:Aubree Silverio MD ID: Korey Montoya is a 74 y.o. male w/ PMH of hypertension, HLD, and BPH who presents for chief concern of chest pain after being found to have ST elevations on EKG. Patient transferred via air ambulance to [facility] on 07/29 for LHC and LOW to LAD for 100% occlusion. HPI: Korey Montoya is a 74 y.o. male w/ PMH of hypertension, HLD, and BPH who presents for chief concern of chest pain after being found to have ST elevations on EKG. Patient transferred via air ambulance to [facility] on 07/29 for LHC and LOW to [...] EKG. Was transferred via air ambulance to [facility] for further management and LHC demonstrated 100% [...] (WRVU 4.57) performed by Brandan Mcgovern MD [facility] ENDOSCOPY Family History Family History [...] Blood Gas) No results for input(s): PHART, GAH0OOX, PO2ART, BJD3GXT, LACTATEVEN, TXT8ETS, PFRATIOART2 in the last 168 hours. VBG (Venous Blood Gas) Recent Labs 07/29/24 1401 PHVEN 7.30* PO2VEN 39 DDJ5WFE 20.1* Mixed Venous Sat No results for input(s): F4RMZP4 in the last 168 hours. PA Catheter [...] Blood Gas) No results for input(s): PHART, HPE7QEK, PO2ART, AMV6FHQ, LACTATEVEN, DWH9ZHV, PFRATIOART2 in the last 168 hours. VBG (Venous Blood Gas) Recent Labs 07/29/24 1401 PHVEN 7.30* PO2VEN 39 WCA1CFM 20.1* Mixed Venous Sat No results for input(s): J3ZZXG8 in the last 168 hours. Microbiology: Microbiology [...] EKG. Patient transferred via air ambulance to [facility] on 07/29 for LHC. Found to have 100% occlusion of LAD for which he underwent LOW to LAD.Otherwise no other significant vessel disease. Fahad is currently hemodynamically tenuous but improving upon admission to [facility], requiring hemodynamic support with norepinephrine and vasopressin at time of admission along with mechanical support with Impella device. Reassuringly, he demonstrates decreasing pressor requirements since admission to [facility], with epinephrine completely weaned. He [...] Bernardo Amos MD Internal Medicine, PGY-3 Cardiology, [facility] 07/29/24 3:14 PM Cardiology Attending [...] FACP, FACC Section of Cardiovascular Medicine [facility] Promotions Managerenvironmental director [employer] [facility] This patient meets or has met [...] to the planned procedure. Hand Hygiene: The mine engineering superintendent did perform hand hygiene prior to arterial [...] ease. Good wave form. Ivan Hernandez MD Maintainer [employer] Associated attestation - Rolando Yeh MD - [...] Fahad was quite active prior to his [place]. 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 Given parameters for home exercise. He follows a heart healthy diet and is not overweight. His lipids are wnl. Participation in an outpatient cardiac rehabilitation program at [facility] was discussed. Patient agrees to [...] MEDICARE Payor: [employer] MANAGED MEDICARE / Plan: [employer] [facility] COMPLETE / Product Type: [...] Date of Discharge: 08/04/2024 Gaby Wong RN, Pager-[phone] * Initial Assessments - Char Meza OT - 08/03/2024 10:00 AM EST Occupational Therapy Evaluation Patient profile: Korey Montoya is a 74 y.o. male admitted on 07/29/2024 w/ PMH of hypertension, HLD, and BPH who presents for chief concern of chest pain after being found to have ST elevations onEKG. Patient transferred via air ambulance to [facility] on 07/29 for LHC and LOW to LAD for 100% occlusion. Past Medical History: Diagnosis Date ADHD HLD (hyperlipidemia) HTN (hypertension) Tremor Past Surgical History: Procedure Laterality Date HAND SURGERY PRO COLONOSCOPY, REMV LESN, SNARE N/A 08/30/2023 COLONOSCOPY, POLYPECTOMY, REMOVAL LESION BY SNARE (WRVU 4.57) performed by Brandan Mcgovern MD [facility] ENDOSCOPY Social History: Patient lives with his . Home Setup: 2 NAOMI to a 1 level home. DME: none Baseline ADL/Mobility: Independent with ADLs and IADLs. Enjoys walking. able assist as needed. Precautions/Special Considerations: Full code. Risk for falls. Subjective: I have access to an Qnary gym. (Educated to wait for MD to [...] evaluation only Total Minutes, Occupational Therapy: 14 ([id number] (evaluation)) 2017 OT Evaluation Code Rationale: Diagnosis [...] and measurable assessment of functional outcome. Pager: [phone] Char Meza OT 08/03/2024 Occupational Therapy Rehabilitation [...] (Interventions Implemented as Appropriate) Flowsheets (Taken 08/01/2024 3930) Outcome Summary: A+O, no pain. NSR. MAP > 65, no intervention. Dobutamine and amiodarone gtts off, CI > 2 via TD and Thoams. PA cath, intro, arterial line removed. RA. Tolerating diet. Perez removed, voiding appropriately in urinal. 20mg Lasix given with good effect. Plan of Care Reviewed With: patient Progress: improving * Brief Op Note - Maldonado Luis MD - 07/31/2024 5:35 PM EST Preliminary Cardiac Catheterization Procedure Note: Patient Name: Korey Montoya : [id number] MR#: [id number] Case Date: 07/31/2024 Hand Shaker: Surgeons and Role: * Maldonado Luis MD - Primary * Quinten Charles PA - Physician Logistics Team Leader Preoperative diagnosis: shock, impella Postoperative diagnosis: * same * Procedure(s) performed: Impella removal form right PHARMACEUTICAL OPERATOR Access: Right PHARMACEUTICAL OPERATOR A time-out was conducted prior to [...] receiving care in [place] must abide by [place] law. The hierarchy [...] (i) The agent with financial power of disability attorney or a conservator appointed in accordance [...] it) Home Address confirmed as: Mailing Address: [address] [address] Physical Address: [address] [place] [address] Social & Family Supports: All names listed [...] points: Addiction likely Health/Prescription Coverage: Primary Insurance: [facility] MANAGED MEDICARE Payor: [employer] MANAGED MEDICARE / Plan: [facility] MANAGED MEDICARE COMPLETE / Product Type: *No Product type* / Secondary Insurance: N/A ; Prescription Coverage: Yes Preferred Pharmacy: [address] - [address] [address] [place] Status: Patient is a : No Primary Care Provider confirmed: Alexia Mtz, EXAM PROCTOR [phone] Patient/Caregiver Goals of Treatment: return home Potential [...] Ongoing (Interventions Implemented as Appropriate) 07/30/2024528 by Chsae Castro RN Outcome: Ongoing (Interventions Implemented as Appropriate) * Plan of Care - Ary Malone RN - 07/29/2024 6:25 PM EST Pt arrived from laboratory geneticist @ 1400. CXR and EKG completed. Impella [...] Procedure Note: Patient Name: Korey Montoya : [id number] MR#: [id number] Case Date: 07/29/2024 Hand Shaker: Surgeons and Role: * Vahe Marvin MD - Primary * Susannah Watts PA - Physician Logistics Team Leader Preoperative diagnosis: STEMI Postoperative diagnosis: * STEMI, LAD Artery * * Cardiogenic Shock * Procedure(s) performed: [facility] Coronary angiogram Stent insertion coronary IVUS coronary Venous line insert [facility] [place] Colette Catheter Vascular closure device Ventricular [...] x 22 mm to 14 deonna JEISON [place] with LIZ 3 flow. Residual distal disease at distal stent, overlapping distal stent was inserted with 3.0 x 8 mm JEISON [place]. Systolic's in the 80's sustained. Patient re [...] AM EST Office Visit Cardiology at [address] [phone] Mushtaq Murphy, FREDRICK Scheduled Orders Name Type [...] AM EST 08/04/2024 6:19 AM EST Bridgette Stauffre MD HEMATOLOGY ORDERABLE S [facility] [place] [address] * Magnesium (08/04/2024 6:08 AM EST) Magnesium 0.85 0.69 - 1.07 mMol/L 08/04/2024 7:07 AM [facility] Blood VENOUS BLOOD SPECIMEN / Unknown Venipuncture / Unknown 08/04/2024 6:08 AM EST 08/04/2024 6:19 AM EST Bridgette Stauffer MD CHEMISTRY ORDERABLES [facility] [place] [address] * Basic Metabolic Panel (08/04/2024 6:08 AM [...] AM EST Bridgette Stauffer MD CHEMISTRY ORDERABLES [facility] [place] [address] * (ABNORMAL) CBC (with Diff) (08/03/2024 5:16 [...] 0.10 x10(3)/mc L 08/03/2024 5:29 AM EST [facility] Immature Gran % 0.3 % [...] City/[facility]/ZIP Co de Phone Number [facility] [place] [address] * Magnesium (08/03/2024 5:16 AM EST) Pathologist [facility] Magnesium 0.89 0.69 - 1.07 mMol/L 08/03/2024 5:56 AM [facility] Blood VENOUS BLOOD SPECIMEN / Unknown Venipuncture / Unknown 08/03/2024 5:16 AM EST 08/03/2024 5:23 AM EST Bridgette Stauffer MD CHEMISTRY ORDERABLES Performing Organization Address City/[facility] Co de Phone Number [facility] [place] [address] * (ABNORMAL) Basic Metabolic Panel (08/03/2024 5:16 [...] AM EST Bridgette Stauffer MD CHEMISTRY ORDERABLES [facility] [place] [address] * POC, GLUCOSE (08/02/2024 7:47 AM EST) Glucometer, POC 89 65 - 199 mg/dL 08/02/2024 7:47 AM EST [facility] Comment:Supplemental ranges: <140 mg/dL before meals <180 mg/dL all other times of the day. Blood CAPILLARY BLOOD / Unknown 08/02/2024 7:47 AM EST 08/02/2024 7:47 AM EST Krystal Parker MD POINT OF CARE TEST O RDERABLES [facility] [place] [address] * (ABNORMAL) CBC (with Diff) (08/02/2024 4:20 [...] EST Bridgette Stauffer MD HEMATOLOGY ORDERABLE S [facility] [place] [address] * Magnesium (08/02/2024 4:20 AM EST) Magnesium 0.79 0.69 - 1.07 mMol/L 08/02/2024 5:06 AM [facility] Blood VENOUS BLOOD SPECIMEN / Unknown Venipuncture / Unknown 08/02/2024 4:20 AM EST 08/02/2024 4:37 AM EST Bridgette Stauffer MD CHEMISTRY ORDERABLES Performing Organization Address City/[facility]/ZIP Co de Phone Number [facility] [place] [address] * (ABNORMAL) Basic Metabolic Panel (08/02/2024 4:20 [...] - 15 mMol/L 08/02/2024 5:06 AM EST [facility] Calcium 8.1(L) 8.5 - 10.5 mg/dL 08/02/2024 5:06 AM EST [facility] Est Glomerular Filtration Rate - Male 91 mL/min/1. 73 m?? 08/02/2024 5:06 AM EST [facility] Comment: This patient's estimated [...] City/[facility]/ZIP Co de Phone Number [facility] [place] [address] * Potassium (08/01/2024 8:39 PM EST) Potassium 4.0 3.5 - 5.0 mMol/L 08/01/2024 9:21 PM EST [facility] Blood VENOUS BLOOD SPECIMEN / Unknown Venipuncture / Unknown 08/01/2024 8:39 PM EST 08/01/2024 8:51 PM EST Aubree Silverio MD CHEMISTRY ORDERABL ES [facility] [place] [address] * POC, GLUCOSE (08/01/2024 8:35 PM EST) Glucometer, POC 112 65 - 199 mg/dL 08/01/2024 8:36 PM EST [facility] Comment:Supplemental ranges: <140 mg/dL before meals <180 mg/dL all other times of the day. Blood CAPILLARY BLOOD / Unknown 08/01/2024 8:35 PM EST 08/01/2024 8:36 PM EST Krystal Parker MD POINT OF CARE TEST O RDERASHAY [facility] [place] [address] * POC, GLUCOSE (08/01/2024 4:55 PM EST) Glucometer, POC 99 65 - 199 mg/dL 08/01/2024 4:56 PM EST [facility] Comment:Supplemental ranges: <140 mg/dL before meals <180 mg/dL all other times of the day. Blood CAPILLARY BLOOD / Unknown 08/01/2024 4:55 PM EST 08/01/2024 4:56 PM EST Krystal Parker MD POINT OF CARE TEST O JOSH Performing Organization Address [facility]/ZIP Co de Phone Number [facility] [place] [address] * POC, GLUCOSE (08/01/2024 12:42 PM EST) Glucometer, POC 130 65 - 199 mg/dL 08/01/2024 12:43 PM EST [facility] Comment:Supplemental ranges: <140 mg/dL before meals <180 mg/dL all other times of the day. Blood CAPILLARY BLOOD / Unknown 08/01/2024 12:42 PM EST 08/01/2024 12:43 PM EST Krystal Parker MD POINT OF CARE TEST O JOSH Performing Organization Address City/[facility]/ZIP Co de Phone Number [facility] [place] [address] * (ABNORMAL) Cooximetry, POC (08/01/2024 10:45 AM [...] MD POINT OF CARE TEST O RDERABLES [facility] [place] [address] * Potassium (08/01/2024 8:20 AM EST) Potassium 4.0 3.5 - 5.0 mMol/L 08/01/2024 10:17 AM EST [facility] Blood ARTERIAL BLOOD / Unknown Venipuncture / Unknown 08/01/2024 8:20 AM EST 08/01/2024 8:30 AM EST Aubree Silverio MD CHEMISTRY ORDERABL ES [facility] [place] [address] * POC, GLUCOSE (08/01/2024 7:44 AM EST) Pathologist [facility] Glucometer, POC 86 65 - 199 mg/dL 08/01/2024 7:44 AM EST [facility] Comment:Supplemental ranges: <140 mg/dL before meals <180 mg/dL all other times of the day. Blood CAPILLARY BLOOD / Unknown 08/01/2024 7:44 AM EST 08/01/2024 7:44 AM EST Krystal Parker MD POINT OF CARE TEST O RDERABLES [facility] [place] [address] * (ABNORMAL) CBC (with Diff) (08/01/2024 4:18 AM EST) [facility] White Blood Cell 8.51 4.00 - [...] MD HEMATOLOGY ORDERABLE S Performing Organization Address [facility] Co de Phone Number [facility] [place] [address] * Magnesium (08/01/2024 4:18 AM EST) Pathologist [facility] Magnesium 0.74 0.69 - 1.07 mMol/L 08/01/2024 5:00 AM [facility] Blood VENOUS BLOOD SPECIMEN / Unknown Venipuncture / Unknown 08/01/2024 4:18 AM EST 08/01/2024 4:29 AM EST Bridgette Stauffer MD CHEMISTRY ORDERABLES Performing Organization Address [facility] Co de Phone Number [facility] [place] [address] * (ABNORMAL) Basic Metabolic Panel (08/01/2024 4:18 AM EST) Pathologist [facility] Glucose 107 65 - 199 mg/dL 08/01/2024 [...] AM EST Bridgette Stauffer MD CHEMISTRY ORDERABLES [facility] [place] [address] * POC, GLUCOSE (07/31/2024 8:41 PM EST) Glucometer, POC 73 65 - 199 mg/dL 07/31/2024 8:41 PM EST [facility] Comment:Supplemental ranges: <140 mg/dL before meals <180 mg/dL all other times of the day. Blood CAPILLARY BLOOD / Unknown 07/31/2024 8:41 PM EST 07/31/2024 8:41 PM EST Krystal Parker MD POINT OF CARE TEST O RDERABLES Performing Organization Address [facility]/State/ZIP Co de Phone Number [facility] [place] [address] * CARDIAC CATHETERIZATION (07/31/2024 5:53 PM EST) Anatomical Region Laterality Modality Other Narrative 08/01/2024 12:37 PM EST ?[facility] ? Cardiac Catheterization/Intervention Report ? Patient Name: Korey Montoya Kyrie. ? Procedure Date: 07/31/2024 ? A #: [id number] ? Primary Physician: Janelle, Maldonado T ? Case #: [id number] ? File Name: [id number] ? Catheterization Order Number: [id number] ? [facility] ? Final Report [place], [place] ? Patient Name: ? Korey Montoya ?ID#: ?[id number] ? : ?1950 ? Procedure Date: ? July 31, 2024 ?Case #: ? [id number] ? Room: ? 1 ? Case [...] ? Comments: ?Impella removed from the right PHARMACEUTICAL OPERATOR with deployment of Perclose and ?Angioseal. [...] Procedure Note Maldonado Luis MD - 08/01/2024 [facility] Cardiac Catheterization/Intervention Report Patient Name: Korey Montoya Procedure Date: 07/31/2024 A #: [id number] Primary Physician: Maldonado Luis Case #: [id number] File Name: [id number] Catheterization Order Number: [id number] [facility] FinalReport [place], [place] Patient Name: Korey Montoya ID#:[id number] :1950 Procedure Date: July 31, 2024 Case [...] was designated as ASA Class IV. The [facility] clinical frailtyscale is 4: Vulnerable. Diagnostic Tests: [...] procedures. Comments: Impella removed from the right PHARMACEUTICAL OPERATOR with deployment of Perclose and Angioseal. [...] * POC, GLUCOSE (07/31/2024 11:04 AM EST) [facility] Glucometer, POC 82 65 - 199 mg/dL 07/31/2024 11:04 AM EST [facility] Comment:Supplemental ranges: <140 mg/dL before meals <180 mg/dL all other times of the day. Blood CAPILLARY BLOOD / Unknown 07/31/2024 11:04 AM EST 07/31/2024 11:04 AM EST Krystal Parker MD POINT OF CARE TEST O RDERABLES [facility] [place] [address] * (ABNORMAL) Blood Gas, Arterial POC (07/31/2024 [...] MD POINT OF CARE TEST O JOSH [facility] [place] [address] * POC, GLUCOSE (07/31/2024 7:47 AM EST) Glucometer, POC 82 65 - 199 mg/dL 07/31/2024 7:53 AM [facility] Comment:Supplemental ranges: <140 mg/dL before meals <180 mg/dL all other times of the day. Blood CAPILLARY BLOOD / Unknown 07/31/2024 7:47 AM EST 07/31/2024 7:53 AM EST Krystal Parker MD POINT OF CARE TEST O RDERASHAY [facility] [place] [address] * (ABNORMAL) CBC (with Diff) (07/31/2024 1:08 [...] EST Bridgette Stauffer MD HEMATOLOGY ORDERABLE S [facility] [place] [address] * Magnesium (07/31/2024 1:08 AM EST) Pathologist [facility] Magnesium 0.89 0.69 - 1.07 mMol/L 07/31/2024 1:46 AM [facility] Blood VENOUS BLOOD SPECIMEN / Unknown Venipuncture / Unknown 07/31/2024 1:08 AM EST 07/31/2024 1:18 AM EST Bridgette Stauffer MD CHEMISTRY ORDERABLES [facility] [address] [place] [address] * (ABNORMAL) Basic Metabolic Panel (07/31/2024 1:08 AM EST) Pathologist [facility] Glucose 97 65 - 199 mg/dL 07/31/2024 1:46 AM [facility] Comment:Glucose Concentratio n >=200 mg/dL plus symptoms is consistent with Diabetes Mellitus. Blood Urea Nitrogen 11 10 - 20 mg/dL 07/31/2024 1:46 AM [facility] Creatinine 0.96 0.80 - 1.50 mg/dL 07/31/2024 1:46 AM EST [facility] Sodium 140 135 - 145 mMol/L 07/31/2024 1:46 AM EST [facility] Potassium 4.1 3.5 - 5.0 mMol/L 07/31/2024 1:46 AM [facility] Chloride 110(H) 98 - 107 mMol/L 07/31/2024 1:46 AM [facility] Carbon Dioxide 24 22 - 31 mMol/L 07/31/2024 1:46 AM [facility] Anion Gap 6 5 - 15 mMol/L 07/31/2024 1:46 AM EST [facility] Calcium 7.7(L) 8.5 - [...] AM EST Bridgette Stauffer MD CHEMISTRY ORDERABLES [facility] [place] [address] * (ABNORMAL) Hepatic Function Panel (07/31/2024 1:08 AM EST) Albumin 3.1(L) 3.2 - 5.2 g/dL 07/31/2024 1:46 AM EST [facility] Aspartate Aminotransferase 192(H) <=39 [...] Parker MD CHEMISTRY ORDERABLES Performing Organization Address [facility]/ZIP Co de Phone Number [facility] [place] [address] * POC, GLUCOSE (07/30/2024 8:03 PM EST) Glucometer, POC 86 65 - 199 mg/dL 07/30/2024 8:03 PM EST [facility] Comment:Supplemental ranges: <140 mg/dL before meals <180 mg/dL all other times of the day. Blood CAPILLARY BLOOD / Unknown 07/30/2024 8:03 PM EST 07/30/2024 8:03 PM EST Krystal Parker MD POINT OF CARE TEST O RDERABLES Performing Organization Address City/[facility]/ZIP Co de Phone Number [facility] [place] [address] * Potassium (07/30/2024 8:03 PM EST) [facility] Potassium 3.8 3.5 - 5.0 mMol/L 07/30/2024 9:13 PM EST [facility] Blood VENOUS BLOOD SPECIMEN / Unknown Venipuncture / Unknown 07/30/2024 8:03 PM EST 07/30/2024 8:22 PM EST Aubree Silverio MD CHEMISTRY ORDERABL ES Performing Organization Address City/[facility]/ZIP Co de Phone Number [facility] [place] [address] * POC, GLUCOSE (07/30/2024 6:23 PM EST) Glucometer, POC 93 65 - 199 mg/dL 07/30/2024 6:24 PM EST [facility] Comment:Supplemental ranges: <140 mg/dL before meals <180 mg/dL all other times of the day. Blood CAPILLARY BLOOD / Unknown 07/30/2024 6:23 PM EST 07/30/2024 6:24 PM EST Krystal Parker MD POINT OF CARE TEST O RDKAY Performing Organization Address [facility] Co de Phone Number [facility] [place] [address] * POC, GLUCOSE (07/30/2024 5:08 PM EST) Glucometer, POC 78 65 - 199 mg/dL 07/30/2024 5:08 PM EST [facility] Comment:Supplemental ranges: <140 mg/dL before meals <180 mg/dL all other times of the day. Blood CAPILLARY BLOOD / Unknown 07/30/2024 5:08 PM EST 07/30/2024 5:08 PM EST Krystal Parker MD POINT OF CARE TEST O JOSH Performing Organization Address [facility] Co de Phone Number [facility] [place] [address] * (ABNORMAL) Phosphorus (07/30/2024 3:08 PM EST) Phosphorus 2.1(L) 2.5 - 4.5 mg/dL 07/30/2024 3:58 PM EST [facility] Blood VENOUS BLOOD SPECIMEN / Unknown Venipuncture / Unknown 07/30/2024 3:08 PM EST 07/30/2024 3:12 PM EST Aubree Silverio MD CHEMISTRY ORDERABL ES Performing Organization Address [facility] Co de Phone Number [facility] [place] [address] * Magnesium (07/30/2024 3:08 PM EST) Magnesium 0.90 0.69 - 1.07 mMol/L 07/30/2024 3:58 PM EST [facility] Blood VENOUS BLOOD SPECIMEN / Unknown Venipuncture / Unknown 07/30/2024 3:08 PM EST 07/30/2024 3:12 PM EST Aubree Silvreio MD CHEMISTRY ORDERABL ES [facility] [place] [address] * (ABNORMAL) Basic Metabolic Panel (07/30/2024 3:08 [...] EST Aubree Silverio MD CHEMISTRY ORDERABL ES [facility] [place] [address] * ECHO LMTD W CONTRAST W LMTD SPEC DOPP COLOR DOPP (07/30/2024 11:42 AM EST) Anatomical Region Laterality Modality Cardiac Other 07/30/2024 10:2 2 AM EST Narrative 07/30/2024 12:34 PM EST [address] [place] [address] ? Echocardiogram Report Name: MONTOYA KOREY Kyrie ? Study Date: 07/30/2024 10:22 AMBP: 124/66 mmHg : 1950 ? Height: 168 cm ? Account: [id number] Age: 74 yrs ? Weight: 65 kg Gender: Male ?BSA: 1.7 m2 Ordering Physician: Aubree Silverio MD Referring Physician: CHAPARRO FERRERA Performed By: OMERO Millan Reason For Study: ST elevation myocardial infarction involving left anterior descending (LAD) coronary artery Interpreting Fellow: Ivan Hernandez. Exam Location: [facility]. Interpretation Summary Left ventricle is [...] to the overnight study by the educational manager fellow the impella position is stable. 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 Procedure Limited - 28237. Image enhancement Definity was used for both [...] Note Kathleen Banda MD - 07/30/2024 [address] [place] [address] Echocardiogram Report Name: KOREY MONTOYA Study Date: 0:22 AMBP: 124/66 mmHg : 1950 Height: 168 cm Account: [id number] Age: 74 yrs Weight: 65 kg Gender: Male BSA: 1.7 m2 Ordering Physician: Aubree Silverio MD Referring Physician: CHAPARRO FERRERA Performed By: OMERO Millan Reason For Study: ST elevation myocardial infarction involving leftanterior descending (LAD) coronary artery Interpreting Fellow: Ivan Hernandez. Exam Location: [facility]. Interpretation Summary Left ventricle is [...] to the overnight study by the educational manager fellow the impella positionis stable. The global left ventricular systolic function has improvedpredominantly via recruitment outside the LAD territory which remains akinetic. Procedure Limited - 31839. Image enhancement Definity was used for both [...] - 199 mg/dL 07/30/2024 11:17 AM EST [facility] Comment:Supplemental ranges: <140 mg/dL before meals <180 mg/dL all other times of the day. Blood CAPILLARY BLOOD / Unknown 07/30/2024 11:17 AM EST 07/30/2024 11:17 AM EST Aubree Silverio MD POINT OF CARE TEST ORDERABLES [facility] [place] [address] * (ABNORMAL) Blood Gas, Arterial POC (07/30/2024 [...] - 145 mmol/L 07/30/2024 8:17 AM EST [facility] Potassium, Arterial 3.9 3.5 - [...] Silverio MD POINT OF CARE TEST ORDERABLES [facility] [place] [address] * (ABNORMAL) Troponin - Single (07/30/2024 8:09 AM EST) Troponin-T, High Sensitivity 8,651(H) <=22 ng/L 07/30/2024 9:06 AM EST [facility] Comment: This patient's troponin [...] value can be found in the [facility] Laboratory Test Catalog Troponin - https://[email or web address].org/catalogs/565/[email or web address]/[email or web address] Reference: Fourth [place] Definition of Myocardial Infarction. Journal of the [place] [employer] 2018;72:9571-5165 Blood VENOUS BLOOD SPECIMEN / Unknown Venipuncture / Unknown 07/30/2024 8:09 AM EST 07/30/2024 8:26 AM EST Aubree Silverio MD CHEMISTRY ORDERABL ES Performing Organization Address [facility] Co de Phone Number [facility] [place] [address] * POC, GLUCOSE (07/30/2024 7:40 AM EST) Glucometer, POC 111 65 - 199 mg/dL 07/30/2024 7:40 AM EST [facility] Comment:Supplemental ranges: <140 mg/dL before meals <180 mg/dL all other times of the day. Blood CAPILLARY BLOOD / Unknown 07/30/2024 7:40 AM EST 07/30/2024 7:40 AM EST Aubree Silverio MD POINT OF CARE TEST ORDERABLES Performing Organization Address [facility] Co de Phone Number [facility] [place] [address] * (ABNORMAL) CBC (with Diff) (07/30/2024 2:11 AM EST) White Blood Cell 11.25(H) 4.00 - 9.50 x10(3)/mc L 07/30/2024 2:33 AM EST [facility] Red Blood Cell 4.50(L) 4.58 [...] 3.20 x10(3)/mc L 07/30/2024 2:33 AM EST [facility] Monocyte % 5.4 % 07/30/2024 [...] EST Bridgette Stauffer MD HEMATOLOGY ORDERABLE S [facility] [place] [address] * Magnesium (07/30/2024 2:11 AM EST) Magnesium 1.01 0.69 - 1.07 mMol/L 07/30/2024 2:51 AM [facility] Blood VENOUS BLOOD SPECIMEN / Unknown Venipuncture / Unknown 07/30/2024 2:11 AM EST 07/30/2024 2:22 AM EST Bridgette Stauffer MD CHEMISTRY ORDERABLES [facility] [place] [address] * (ABNORMAL) Basic Metabolic Panel (07/30/2024 2:11 [...] City/[facility]/ZIP Co de Phone Number [facility] [place] [address] * (ABNORMAL) Cooximetry, POC (07/30/2024 1:00 AM EST) pO2, Coox 28 mmHg 07/30/2024 1:03 AM [facility] Hemoglobin, Coox 12.7(L) 13.7 - 16.5 g/dL 07/30/2024 1:03 AM EST [facility] Oxyhemoglobin, Coox 54.9 % 07/30/2024 1:03 AM [facility] Carboxyhemoglo bin, Coox 1.0 % 07/30/2024 1:03 AM EST [facility] Comment: Nonsmokers: 0.5-1.5% COHB ?? Smokers: Variable ??but usually less than 10% ?? Toxic: 20-30% COHB ?? Lethal: Greater than 60% COHB Methemoglobin, Coox 0.0 <=1.5 % 07/30/2024 1:03 AM EST [facility] Blood (Mixed Venous) 07/30/2024 1:00 AM EST 07/30/2024 1:03 AM EST Aubree Silverio MD POINT OF CARE TEST ORDERABLES Performing Organization Address [facility] Co de Phone Number [facility] [place] [address] * (ABNORMAL) Blood Gas, Arterial POC (07/30/2024 [...] Rate 2.0 L/min 07/30/2024 12:58 AM EST [facility] IONIZED CALCIUM, ARTERIAL 1.12(L) 1.15 - 1.33 mmol/L 07/30/2024 12:58 AM EST [facility] Glucose, Arterial 184 65 - 199 mg/dL 07/30/2024 12:58 AM EST [facility] Comment:Glucose Concentratio n >=200 mg/dL plus symptoms is consistent with Diabetes Mellitus. Blood ARTERIAL BLOOD / Unknown 07/30/2024 12:57 AM EST 07/30/2024 12:58 AM EST Aubree Silverio MD POINT OF CARE TEST ORDERABLES [facility] [place] [address] * (ABNORMAL) Troponin - Single (07/29/2024 10:31 PM EST) Troponin-T, High Sensitivity >10,000(H ) <=22 ng/L 07/29/2024 11:03 PM EST [facility] Comment: This patient's troponin [...] value can be found in the [facility] Laboratory Test Catalog Troponin - https://[email or web address].org/catalogs/565/files/89116 Reference: Fourth [place] Definition of Myocardial Infarction. Journal of the [place] College [employer]iology 2018;72:5393-3349 Blood VENOUS BLOOD SPECIMEN / Unknown Venipuncture / Unknown 07/29/2024 10:31 PM EST 07/29/2024 10:36 PM EST Yrn Velazquez MD CHEMISTRY ORDERABL ES Performing Organization Address City/[facility]/ZIP Co de Phone Number [facility] [place] [address] * Potassium (07/29/2024 8:11 PM EST) Potassium 4.1 3.5 - 5.0 mMol/L 07/29/2024 8:52 PM EST [facility] Blood VENOUS BLOOD SPECIMEN / Unknown Venipuncture / Unknown 07/29/2024 8:11 PM EST 07/29/2024 8:16 PM EST Aubree Silverio MD CHEMISTRY ORDERABL ES Performing Organization Address [facility]/ZIP Co de Phone Number [facility] [place] [address] * (ABNORMAL) Troponin - Single (07/29/2024 8:11 PM EST) Troponin-T, High Sensitivity >10,000(H ) <=22 ng/L 07/29/2024 8:52 PM EST [facility] Comment: This patient's troponin [...] value can be found in the [facility] Laboratory Test Catalog Troponin - https://[email or web address]-.testcatalog.org/catalogs/565/files/73613 Reference: Fourth [place] Definition of Myocardial Infarction. Journal of the [place] College of Cardiology 2018;72:6291-9530 Blood VENOUS BLOOD SPECIMEN / Unknown Venipuncture / Unknown 07/29/2024 8:11 PM EST 07/29/2024 8:16 PM EST Aubree Silverio MD CHEMISTRY ORDERABL ES [facility] [place] [address] * (ABNORMAL) Phosphorus (07/29/2024 8:11 PM EST) Phosphorus 2.1(L) 2.5 - 4.5 mg/dL 07/29/2024 8:52 PM EST [facility] Blood VENOUS BLOOD SPECIMEN / Unknown Venipuncture / Unknown 07/29/2024 8:11 PM EST 07/29/2024 8:16 PM EST Aubree Silverio MD CHEMISTRY ORDERABL ES [facility] [place] [address] * POC, GLUCOSE (07/29/2024 8:09 PM EST) Glucometer, POC 142 65 - 199 mg/dL 07/29/2024 8:09 PM EST [facility] Comment:Supplemental ranges: <140 mg/dL before meals <180 mg/dL all other times of the day. Blood CAPILLARY BLOOD / Unknown 07/29/2024 8:09 PM EST 07/29/2024 8:09 PM EST Aubree Silverio MD POINT OF CARE TEST ORDERABLES Performing Organization Address City/[facility]/ZIP Co de Phone Number [facility] [place] [address] * ABORH RECHECK (07/29/2024 6:43 PM EST) Pathologist [facility] ABORH Recheck AB POSITIVE 07/29/2024 10:13 PM EST [facility] Blood VENOUS BLOOD SPECIMEN / Unknown Venipuncture / Unknown 07/29/2024 6:43 PM EST 07/29/2024 7:15 PM EST Aubree Silverio MD BLOOD BANK LAB ORD ERABLES Performing Organization Address City/[facility]/ZIP Co de Phone Number [facility] [place] [address] * POC, GLUCOSE (07/29/2024 5:57 PM EST) [facility] Glucometer, POC 166 65 - 199 mg/dL 07/29/2024 5:57 PM EST [facility] Comment:Supplemental ranges: <140 mg/dL before meals <180 mg/dL all other times of the day. Blood CAPILLARY BLOOD / Unknown 07/29/2024 5:57 PM EST 07/29/2024 5:57 PM EST Aubree Silverio MD POINT OF CARE TEST ORDERABLES Performing Organization Address City/[facility]/ZIP Co de Phone Number [facility] [place] [address] * Type and screen ([facility]/CGP/MAGALIE) (07/29/2024 5:56 PM EST) Pathologist [facility] ABORH Type AB POSITIVE 07/29/2024 9:44 PM EST [facility] PATIENT HISTORY Not Found 07/29/2024 9:44 PM EST [facility] Expires at [id number] on: 08/01/2024 07/29/2024 9:44 PM EST [facility] ANTIBODY SCREEN AUTOMATED Negative 07/29/2024 9:44 PM EST [facility] T&S only valid at [facility] 07/29/2024 9:44 PM EST [facility] Blood VENOUS BLOOD SPECIMEN / Unknown Venipuncture / Unknown 07/29/2024 5:56 PM EST 07/29/2024 6:07 PM EST Narrative [facility] - 07/29/2024 9:44 PM EST This Type and Screen result is only valid at the [facility] Aubree Silverio MD BLOOD BANK LAB ORD ERABLES [facility] [place] [address] * (ABNORMAL) Troponin - Single (07/29/2024 4:52 PM EST) [facility] Troponin-T, High Sensitivity >10,000(H ) <=22 ng/L 07/29/2024 5:25 PM EST [facility] Comment: This patient's troponin [...] value can be found in the [facility] Laboratory Test Catalog Troponin - https://[facility]-.testcatalog.org/catalogs/565/files/29714 Reference: Fourth [place] Definition of Myocardial Infarction. Journal of the [place] College of Cardiology 2018;72:1155-0199 Blood VENOUS BLOOD SPECIMEN / Unknown Venipuncture / Unknown 07/29/2024 4:52 PM EST 07/29/2024 4:57 PM EST Aubree Silverio MD CHEMISTRY ORDERABL ES Performing Organization Address City/[facility]/ZIP Co de Phone Number [facility] [place] [address] * EKG 12 Lead (07/29/2024 4:21 PM EST) Ventricular rate 72 BPM MUSE SYSTEM Atrial Rate 72 BPM MUSE SYSTEM P-R Interval 168 ms MUSE SYSTEM QRS Duration 82 ms MUSE SYSTEM Q-T Interval 392 ms MUSE SYSTEM QTC Calculated (Bezet) 429 ms MUSE SYSTEM Calculated P [place] 71 degrees MUSE SYSTEM Calculated R [place] 77 degrees MUSE SYSTEM Calculated T [place] 28 degrees MUSE SYSTEM INTERPRETATION Sinus rhythm with Premature supraventricular complexes and Occasional Premature ventricular complexes Low voltage QRS 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) Lateral injury pattern ACUTE TX / STEMI Abnormal ECG When compared with ECG of 29-JUL-2024 13:43, (unconfirmed) Serial changes of evolving Anteroseptal infarct Present Confirmed by MD Marcus, Roverto (1963) on 07/31/2024 5:30:06 AM MUSE SYSTEM 07/29/2024 4:21 PM EST 07/31/2024 5:30 AM EST Aubree Silverio MD ECG ORDERABLES Performing Organization Address [facility]/ZIP Co de Phone Number MUSE SYSTEM * (ABNORMAL) Blood Gas, Arterial POC (07/29/2024 4:21 PM EST) pH, Arterial 7.37 7.35 - 7.45 07/29/2024 4:22 PM EST [facility] PCO2, Arterial 36 35 - 45 mmHg 07/29/2024 4:22 PM EST [facility] PO2, Arterial 71(L) 85 - 104 mmHg 07/29/2024 4:22 PM EST [facility] Bicarbonate, Arterial 20.4 20.0 - 26.0 mmol/L 07/29/2024 4:22 PM EST [facility] Base Excess, Arterial -4.8(L) -3.0 [...] Silverio MD POINT OF CARE TEST ORDERABLES [facility] [place] [address] * POC, GLUCOSE (07/29/2024 4:19 PM EST) Glucometer, POC 185 65 - 199 mg/dL 07/29/2024 4:19 PM EST [facility] Comment:Supplemental ranges: <140 mg/dL before meals <180 mg/dL all other times of the day. Blood CAPILLARY BLOOD / Unknown 07/29/2024 4:19 PM EST 07/29/2024 4:19 PM EST Aubree Silverio MD POINT OF CARE TEST ORDERABLES Performing Organization Address City/[facility]/ZIP Co de Phone Number [facility] [place] [address] * Blood culture (07/29/2024 4:08 PM EST) Blood Culture No growth at 120 hours 08/03/2024 5:01 PM EST [facility] Blood VENOUS BLOOD SPECIMEN / Unknown Venipuncture / Unknown 07/29/2024 4:08 PM EST 07/29/2024 4:15 PM EST Aubree Silverio MD MICROBIOLOGY - BLO OD ORDERABLES Performing Organization Address City/[facility]/ZIP Co de Phone Number [facility] [place] [address] * Blood culture (07/29/2024 4:08 PM EST) Blood Culture No growth at 120 hours 08/03/2024 5:01 PM EST [facility] Blood VENOUS BLOOD SPECIMEN / Unknown Venipuncture / Unknown 07/29/2024 4:08 PM EST 07/29/2024 4:26 PM EST Aubree Silverio MD MICROBIOLOGY - BLO OD ORDERABLES [facility] [place] [address] * XR Chest One View (07/29/2024 2:30 PM EST) WORKSTATION ID [id number] RAD Anatomical Region Laterality Modality Chest N/A [...] questions please contact the health health care specialist that requested your imaging first. ? Electronically signed by: Chris Candelaria MD, [facility] ([phone]), at 07/29/2024 3:21 PM Narrative 07/29/2024 3:21 [...] have questions please contactthe health health care specialist that requested your imaging first. Electronically signed by: Chris Candelaria MD, [facility]([phone]), at 07/29/2024 3:21 PM Vahe Marvin MD IMG DX ORDERABLES * (ABNORMAL) APTT (07/29/2024 2:03 PM EST) Pathologist [facility] Partial Thromboplastin Time >160(HHH) 25 - 37 sec 07/29/2024 2:56 PM EST [facility] Blood VENOUS BLOOD SPECIMEN / Unknown Venipuncture / Unknown 07/29/2024 2:03 PM EST 07/29/2024 2:13 PM EST Vahe Marvin MD HEMATOLOGY ORDERABLE S [facility] [place] [address] * (ABNORMAL) Prothrombin Time (07/29/2024 2:03 PM EST) Prothrombin Time 14.2(H) 9.4 - 12.5 sec 07/29/2024 2:56 PM EST [facility] International Normalization Ratio 1.3 <=4.9 07/29/2024 2:56 PM EST [facility] Comment: An INR < [...] City/[facility]/ZIP Co de Phone Number [facility] [place] [address] * CRP, acute inflammation (07/29/2024 2:03 PM EST) C-Reactive Protein <3.0 <=4.9 mg/L 07/29/2024 2:52 PM EST [facility] Blood VENOUS BLOOD SPECIMEN / Unknown Venipuncture / Unknown 07/29/2024 2:03 PM EST 07/29/2024 2:14 PM EST Vahe Marvin MD CHEMISTRY ORDERABLES Performing Organization Address City/[facility]/ZIP Co de Phone Number [facility] [place] [address] * Lipid Panel (Reflex Direct LDL) (07/29/2024 2:03 PM EST) Cholesterol, Total 133 mg/dL 07/29/2024 2:52 PM EST [facility] Comment: Desirable: < 200 mg/dL Borderline High: 200 - 239 mg/dL High: > or = 240 mg/dL Triglyceride 45 mg/dL 07/29/2024 2:52 PM EST [facility] Comment: Normal: <150 mg/dL Borderline [...] City/[facility]/ZIP Co de Phone Number [facility] [place] [address] * TSH Cisco (07/29/2024 2:03 PM EST) [facility] Thyroid Stimulating Hormone 0.70 0.27 - 4.20 mcIU/mL 07/29/2024 2:52 PM EST [facility] Blood VENOUS BLOOD SPECIMEN / Unknown Venipuncture / Unknown 07/29/2024 2:03 PM EST 07/29/2024 2:14 PM EST Vahe Marvin MD CHEMISTRY ORDERABLES Performing Organization Address [facility]/ZIP Co de Phone Number [facility] [place] [address] * Hemoglobin A1c (07/29/2024 2:03 PM EST) [facility] Hemoglobin A1c 5.3 4.3 - 5.6 % 07/29/2024 2:41 PM EST [facility] Comment: Per ADA guidelines, [...] Estimated Average Glucose 07/29/2024 2:41 PM EST [facility] Comment:Estimated Average Gl ucose [...] into estimated average glucose values. ??Diabetes Care 2008:31(8):6097-0894. Additional resources are available on the ADA website (diabetes.org). Vahe Marvin MD CHEMISTRY ORDERABLES [facility] [place] [address] * (ABNORMAL) CBC (with Diff) (07/29/2024 2:03 PM EST) White Blood Cell 19.50(H) 4.00 - 9.50 x10(3)/mc L 07/29/2024 2:18 PM EST [facility] Red Blood Cell 4.81 [...] 3.20 x10(3)/mc L 07/29/2024 2:18 PM EST [facility] Monocyte % 2.9 % 07/29/2024 2:18 PM EST [facility] Monocyte Absolute 0.56 0.30 - 0.90 x10(3)/mc L 07/29/2024 2:18 PM EST [facility] Eos % 0.0 % 07/29/2024 2:18 PM EST [facility] Eos Absolute <0.04 0.00 - 0.40 x10(3)/mc L 07/29/2024 2:18 PM EST [facility] Basophil % 0.3 % 07/29/2024 2:18 PM [facility] Baso Absolute 0.05 0.00 - 0.10 x10(3)/mc L 07/29/2024 2:18 PM EST [facility] Immature Gran % 0.5 % 2:18 PM [facility] Immature Gran Absolute 0.09(H) 0.00 - 0.04 x10(3)/mc L 07/29/2024 2:18 PM EST [facility] Blood VENOUS BLOOD SPECIMEN / Unknown Venipuncture / Unknown 07/29/2024 2:03 PM EST 07/29/2024 2:13 PM EST Vahe Marvin MD HEMATOLOGY ORDERABLE S Performing Organization Address City/State/[facility] Co de Phone Number [facility] [place] [address] * Phosphorus (07/29/2024 2:03 PM EST) Phosphorus 2.5 2.5 - 4.5 mg/dL 07/29/2024 2:52 PM EST [facility] Blood VENOUS BLOOD SPECIMEN / Unknown Venipuncture / Unknown 07/29/2024 2:03 PM EST 07/29/2024 2:14 PM EST Vahe Marvin MD CHEMISTRY ORDERABLES [facility] [place] [address] * Magnesium (07/29/2024 2:03 PM EST) Pathologist [facility] Magnesium 0.70 0.69 - 1.07 mMol/L 07/29/2024 2:52 PM EST [facility] Blood VENOUS BLOOD SPECIMEN / Unknown Venipuncture / Unknown 07/29/2024 2:03 PM EST 07/29/2024 2:14 PM EST Vahe Marvin MD CHEMISTRY ORDERABLES Performing Organization Address City/[facility]/ZIP Co de Phone Number [facility] [place] [address] * (ABNORMAL) Comprehensive metabolic panel (07/29/2024 2:03 PM EST) Pathologist [facility] Glucose 243(H) 65 - 199 mg/dL 07/29/2024 [...] - 10.5 mg/dL 07/29/2024 3:11 PM EST [facility] Protein, Total 6.0(L) 6.1 - [...] PM EST Vahe Marvin MD CHEMISTRY ORDERABLES [facility] [place] [address] * (ABNORMAL) Troponin - Single (07/29/2024 2:03 PM EST) [facility] Troponin-T, High Sensitivity >10,000(H ) <=22 ng/L 07/29/2024 2:52 PM EST [facility] Comment: This patient's troponin [...] value can be found in the [facility] Laboratory Test Catalog Troponin - https://[facility]-.testcatalog.org/catalogs/565/files/57796 Reference: Fourth [place] Definition of Myocardial Infarction. Journal of the [place] College of Cardiology 2018;72:6888-7014 Blood VENOUS BLOOD SPECIMEN / Unknown Venipuncture / Unknown 07/29/2024 2:03 PM EST 07/29/2024 2:14 PM EST Vahe Mravin MD CHEMISTRY ORDERABLES [facility] [place] [address] * (ABNORMAL) Blood Gas, Venous POC (07/29/2024 2:01 PM EST) [facility] pH, Venous 7.30(L) 7.32 - 7.42 07/29/2024 2:02 PM EST [facility] PCO2, Venous 42 38 - 58 mmHg 07/29/2024 2:02 PM EST [facility] PO2, Venous 39 16 - [...] CARE TEST O RDERABLES Performing Organization Address [facility]/State/ZIP Co de Phone Number [facility] [place] [address] * CARDIAC CATHETERIZATION (07/29/2024 1:20 PM EST) Anatomical Region Laterality Modality Other Narrative 07/29/2024 2:02 PM EST ?[facility] ? Cardiac Catheterization/Intervention Report ? Patient Name: Korey Montoya Kyrie. ? Procedure Date: 07/29/2024 ? A #: [id number] ? Primary Physician: Vahe Marvin ? Case #: [id number] ? File Name: [id number] ? Catheterization Order Number: [id number] ? [facility] ? Final Report [place], [place] ? Patient Name: ? Korey Montoya ?ID#: ?[id number] ? : ?1950 ? Procedure Date: ? [...] was Emergent. The indication for ?the laboratory geneticist visit is ACS less than or equal [...] 3.5 guiding catheter and a 3.[address] ??20 Mhz using ?Manual pullback. ??Imaging [...] ? A premounted 3.00 x 22 mm [place] (LOW) was deployed ? with a maximum [...] atmospheres. ??A premounted 3.00 x 08 mm [place] (LOW) ? was deployed with a maximum [...] administered prior to arrival in the laboratory geneticist. ?Recommended anti-platelet/anti-thrombotic regimen: ?Start aspirin 81 mg daily now and continue for 12 months then stop. ?Start clopidogrel 75 mg daily now and continue for indefinitely. ?These recommendations are made at the time of the intervention. Patient ?and provider preferences or a changing clinical situation may require ?modification of this regimen. Consult [facility] Interventional Cardiology for ?questions. ?The 1 year [...] able ?to start weaning his inotropes/vasopressors. A [place] Colette catheter was ?placed demonstrating improvement [...] ventricular assist device insertion, right heart ?catheterization, [place] (flow directed cath) insertion, access site ?angiography, vascular ultrasound, venous line / sheath insert and vascular ?closure device. ? Vahe S Shavonne, M.D. ? Electronically Signed by: Vahe Cobosstein, M.D. ? Report Finalized: 07/29/2024 ??13:55 ? Report Last Ammended: 07/30/2024 ??10:15 ? Procedure Note Vahe Marvin MD - 07/30/2024 [facility] Cardiac Catheterization/Intervention Report Patient Name: Korey Montoya Procedure Date: 07/29/2024 A #: [id number] Primary Physician: Vahe Marvin Case #: [id number] File Name: [id number] Catheterization Order Number: [id number] [facility] FinalReport [place], [place] Patient Name: Korey Montoya ID#:[id number] :1950 Procedure Date: July 29, 2024 Case [...] was designated as ASA Class IV. The [facility] fra[facility] is 4: Vulnerable. Diagnostic Tests: Electrocardiography: EKG was assessed by ECG. EKG was Abnormal. EKG showed STDeviation >= 0.5 mm. Medications Prior to Procedure: Angiotensin II Receptor Elvis and Statin. Indications for Diagnostic Cath: The priority of the diagnostic procedure was Emergent. Theindication for the laboratory geneticist visit is ACS less than or equal [...] 3.5 guiding catheter and a 3.[address] 20 Mhzusing Manual pullback. Imaging was [...] The priority for the procedure was Emergent.The [facility] indication for the procedure was [...] The lesion was predilated with a 2.00mm [id number] MM balloon with a maximum inflation pressure of 12atmospheres. A premounted 3.00 x 22 mm [place] (LOW) wasdeployed with a maximum inflation pressure [...] atmospheres. A premounted 3.00 x 08 mm [place](LOW) was deployed with a maximum inflation pressure [...] administered prior to arrival in the laboratory geneticist. Recommended anti-platelet/anti-thrombotic regimen: Start aspirin 81 mg daily now and continue for 12 months then stop. Start clopidogrel 75 mg daily now and continue for indefinitely. These recommendations are made at the time of the intervention.Patient and provider preferences or a changing clinical situation mayrequire modification of this regimen. Consult [facility] Interventional Cardiologyfor questions. The 1 year bleeding [...] wereable to start weaning his inotropes/vasopressors. A [place] Colette catheterwas placed demonstrating improvement in [...] ventricular assist device insertion, right heart catheterization, [place] (flow directed cath) insertion, access site [...] MD POINT OF CARE TEST O RDERABLES [facility] [place] [address] * (ABNORMAL) BLOOD GAS, POC (07/29/2024 12:12 [...] CARE TEST O RDERABLES Performing Organization Address City/State/[facility] Co de Phone Number [facility] [place] [address] documented in this encounter Visit Diagnoses Not [...] Routine documented in this encounter Care Teams Chef Head Relationship Specialty Start Date End Date Yoel Artis APRN [address] [place] [address] PCP - General Internal Medicine 11/18/22 07/29/24 documented as of this encounter
--- OUTSIDE RECORDS SUMMARY | 2024-09-07 11:11 | XMS_ITS | Encounter Summary ---
[place] [address] Care Team Providers Care Dynamics Ax Consultant Name Role Phone Yoel Artis APRN Primary Care Provider [phone] Reason for Referral * Consultation (Routine) - Closed Specialty Diagnoses / Procedures Referred By Theodore muro Referred To Contact Urology Diagnoses Raised prostate specific antigen PERSISTENTLY MILDLY ELEVATED PSA, URINARY FREQ Yoel Artis APRN [address] [place] [address] [facility] [place] [address] Referral ID Status Reason Start Date Expiration Date V isits Requested Visits Authorized [id number] Closed Consult, Test & Treat PCP Updated and/or Approved 07/30/2023 07/29/2024 6 6 Encounter Details Date Type Department Care Team (Late st Contact Info) Description 07/30/2023 Transcribe Orders eDH Incoming Referrals [phone] Yoel Artis APRN [address] [place] [address] Raised prostate specific antigen Social [...] AM EST Office Visit Cardiology at [address] [address] Mushtaq Murphy APRN Scheduled Referrals Name Type Priority Associated Diagnoses Orde r Schedule Referral to Urology Outpatient Referral Routine Raised prostate specific antigen Ordered: 07/30/2023 documented as of this encounter Visit Diagnoses Diagnosis Raised prostate specific antigen Elevated prostate specific antigen (PSA) documented in this encounter Care Teams Dynamics Ax Consultant Relationship Specialty Start Date End Date Yoel Artis APRN [address] [place] [address] PCP - General Internal Medicine 11/18/22 07/29/24 documented as of this encounter
--- OUTSIDE RECORDS SUMMARY | 2024-09-07 11:11 | XMS_ITS | Encounter Summary ---
Author Organization [facility] [place] [address] Care Team Providers Care Cattle Dealer Name Role Phone Yoel Artis APRN Primary Care Provider Reason for Referral * Consultation (Routine) - Closed Specialty Diagnoses / Procedures Referred By Theodore muro Referred To Contact Gastroenterology Diagnoses Anal spasm motility- anal spasms Yoel Artis APRN [address] [place] [address] [facility] [address] [place] [phone] Referral ID Status Reason Start Date Expiration Date V isits Requested Visits Authorized [id number] Closed Consult, Test & Treat PCP Updated and/or Approved 11/18/2022 11/18/2023 6 6 Encounter Details Date Type Department Care Team (Late st Contact Info) Description 11/18/2022 Transcribe Orders eDH Incoming Referrals [phone] Yoel Artis APRN [address] [place] [address] Anal spasm Social History Tobacco [...] AM EST Office Visit Cardiology at [address] [phone] Mushtaq Murphy APRN Scheduled Referrals Name Type Priority Associated Diagnoses Order Schedule Referral to Gastroenterology Outpatient Referral Routine Anal spasm Ordered: 11/18/2022 documented as of this encounter Visit Diagnoses Diagnosis Anal spasm documented in this encounter Care Teams Cattle Dealer Relationship Specialty Start Date End Date Yoel Artis APRN [address] [place] [address] PCP - General Internal Medicine 11/18/22 07/29/24 documented as of this encounter
--- OUTSIDE RECORDS SUMMARY | 2024-09-07 11:11 | XMS_ITS | Encounter Summary ---
Author Organization [facility] [place] [address] Care Team Providers Care Apparel Embroidery Digitizer Name Role Phone Alexia Mtz COMMISSARY OFFICER Primary Care Provider [phone] Encounter Details Date Type Department Care Team (Late st Contact Info) Description 04/23/2024 [place] [address] Alexia Mtz, COMMISSARY OFFICER [address], [place] [id number] Elevated prostate specific antigen (PSA) Social History [...] AM EST Office Visit Cardiology at [address] [address] Mushtaq Murphy APRN documented as of this encounter Procedures Procedure Name Priority Date/Time Associated Diagnosis Comments PSA (ULTRASENSITIVE), TOTAL AND FREE Routine 04/23/2024 1:09 PM EDT Elevated prostate specific antigen (PSA) documented in this encounter Results * (ABNORMAL) PSA (Ultrasensitive), total and free (04/23/2024 1:09 PM EDT) Prostate Specific Antigen (Ultrasensitive) 5.24(H) 0.00-4.00 ng/mL ng/ml 04/23/2024 5:18 PM EDT [facility] Comment:The reference interv al (0 [...] Free 1.1 ng/ml 04/23/2024 5:18 PM EDT [facility] Comment:This result was gene rated using a Wowcracy Osiel immunoassay. Results obtained from other methods or manufacturers cannot be used interchangeably with this method. PSA % Free 21 % 04/23/2024 5:18 PM EDT [facility] Comment: Probability of finding DYE MACHINE TENDER on needle biopsy by age in years: [...] PM EDT Alexia Mtz APRN CHEMISTRY ORDERABLES [facility] [place] [address] documented in this encounter Visit Diagnoses Diagnosis Elevated prostate specific antigen (PSA) documented in this encounter Care Teams Apparel Embroidery Digitizer Relationship Specialty Start Date End Date Alexia Mtz APRN [address] [place] [id number] PCP - General Family Medicine 07/30/24 documented as of this encounter
--- OUTSIDE RECORDS SUMMARY | 2024-09-07 11:11 | XMS_ITS | Encounter Summary ---
Author Organization [facility] Address [facility] [place] [address] Care Team Providers Care Mine Manager Name Role Phone Carola Artis APRN Primary Care Provider [phone] Encounter Details Date Type Department Care Team (Latest Contact Info) Description 11/30/2023 8:00 AM EDT TH Visit (TeleHealth) [place] [address] Carola Dangelo APRN [facility] [place] [address] Proctalgia fugax; Constipation, unspecified constipation type Social [...] Handout for Patients and Primary Care Providers [facility] Gastrointestinal Motility, Esophageal, and Swallowing Disorders Center What are functional bowel disorders? These are the most common type of gastrointestinal disorders in the [facility] The most common functional bowel disorder in [...] what is the impact? 15-20% of general [place] population has IBS or FD or both 2nd most common cause for lost work days (after common cold) in [place] Estimated $30 billion dollar cost to [place] economy per year These disorders can have [...] with immediate onset of symptoms after infection); rn long term care symptoms are expected in most patients [...] to you primary care provider and/or local zigzag machine operator and share this document. Treatment of [...] - this approach benefits most patients OTC (pauo-nrr-djwakbf) medications can be used for ongoing bothersome symptoms as listed below Your provider (PCP or local Gastroenterology provider or [facility] Gastroenterology provider) may decide to [...] All-Bran psyllium buds, Metamucil, Konsyl, bulk psyllium ([employer] and [employer] stores) Specifically we recommend starting Metamucil or [...] but convincing medical evidence is still lacking Noha-vfh-ibnbhpb supplements including probiotics are not typically evaluated [...] to decrease antibiotic-associated diarrhea and antibiotic-related infections Ojmm-cbe-Ydokjpt Medications for Functional Gut Disorders Based on [...] stool softener that is safe for intermediate usage (no risk of dependency) andthe dosage [...] (GERD) Often a combination of anti-nausea medications (nzjo-qhh-eolvxbc or prescription) works better thanhigh doses of [...] for misuse/misinterpretation of this information Patient Resources [place] [employer] https://www.gastro.org/practice-guidance/ye-xekprpx-ocrgoa/ topic/rdoynsgsv-sswsx-ccojvmxa-ibs Badgut.org https://badgut.org/information-centre/s-h-ssttjcnxo-topics/ibs/ AboutIBS.org https://www.aboutibs.org/ Uptodate.com https://www.uptodate.com/contents/glhopndnr-asfvk-brsmdypn-bxiuwe-hbt-jtmcry documented in this encounter Progress Notes * [...] Take by mouth. nitroGLYcerin (NITROLINGUAL) 400 mcg/spray [place], Non-Aerosol 1 spray to anus for proctalgia fugax as needed, not to exceed once daily 12 g 0 No facility-administered medications prior to visit. Allergies: has No Known Allergies. Past Medical History: has a past medical history of ADHD, HLD (hyperlipidemia), HTN (hypertension),and Tremor. Past Surgical History: has a past surgical history that includes Hand surgery and Colonoscopy, Antonieta Pfeiffer ([id number]) (N/A, 08/30/2023). Family History: family history is [...] for re-evaluation. The patient was located in [place] at the time of their visit. Carola Dangelo APRN [facility] [place] [address] documented in this encounter Miscellaneous Notes * Addendum Note - Carola Dangelo APRN - 11/30/2023 8:00 AM EDTAddended by: CAROLA DANGELO on: 11/30/2023 08:46 AM Modules accepted: Level of Service documented in this encounter Plan of Treatment Upcoming Encounters Date Type Department Care Team (Late st Contact Info) Description 10/01/2024 10:00 AM EST Office Visit Cardiology at [address] [address] Mushtaq Murphy APRN documented as of this encounter Visit Diagnoses Diagnosis Proctalgia fugax Anal spasm Constipation, unspecified constipation type documented in this encounter Care Teams Mine Manager Relationship Specialty Start Date End Date Carola Artis APRN [address] [place] [address] PCP - General Internal Medicine 11/18/22 07/29/24 documented as of this encounter
--- OUTSIDE RECORDS SUMMARY | 2024-09-07 11:11 | XMS_ITS | Encounter Summary ---
[place] [address] Care Team Providers Care Arts And Crafts Instructor Name Role Phone Yoel Artsi FREDRICK Primary Care Provider [phone] Encounter Details Date Type Department Care Team (Late st Contact Info) Description 01/16/2024 Interpretation Only [facility] [address] [place] [address] Chaparro Montana MD [address] [place] [address] Social History Tobacco Use Types Packs/Day Years [...] 10:00 AM EST Office Visit Cardiology at [address] [phone] Mushtaq Murphy APRN documented as of this encounter Procedures Procedure Name Priority Date/Time Associated Diagnosis Comments XR CHEST ONE VIEW STAT 01/16/2024 4:0 4 PM EDT documented in this encounter Results * XR Chest One View (01/16/2024 4:04 PM EDT) PT CLASS E RAD ADMITDTTM [id number] [facility] PT RAD INFO [id number]^Jordy henry^Chaparro RAD EXAM DESC XCXR1^XR Chest 1 View^RIS [facility] WORKSTATION ID [id number] [facility] Anatomical Region Laterality Modality Chest N/A [...] have questions please contact the health care aide that requested your imaging first. ? Electronically signed by: Alexey Winslow MD, [facility] ([phone]), at 01/16/2024 4:08 PM Narrative 01/16/2024 4:08 [...] who have questions please contactthe health care aide that requested your imaging first. Electronically signed by: Alexey Winslow MD, [facility]([phone]), at 01/16/2024 4:08 PM Chaparro Montana MD IMG DX ORDERABLES documented in this encounter Visit Diagnoses Not on filedocumented in this encounter Care Teams Arts And Crafts Instructor Relationship Specialty Start Date End Date Yoel Artis APRN [address] [place] [address] PCP - General Internal Medicine 11/18/22 07/29/24 documented as of this encounter
--- OUTSIDE RECORDS SUMMARY | 2024-09-07 11:12 | XMS_ITS | Encounter Summary ---
Author Organization [facility] [place] [address] Care Team Providers Care Shrimp Packer Name Role Phone Anibal Mtz MD Primary Care Provider [phone] Encounter Details Date Type Department Care Team (Late st Contact Info) Description 11/08/2022 Interpretation Only [address] [phone] Eve Frost MD [address] [place] [id number] Social History Tobacco Use Types Packs/Day Years [...] AM EST Office Visit Cardiology at [address] [address] Mushtaq Murphy APRN documented as of this encounter Procedures Procedure Name Priority Date/Time Associated Diagnosis Comments XR CHEST PA AND LATERAL STAT 11/08/2022 10:34 AM EST documented in this encounter Results * XR Chest PA & Lateral (Generic) (11/08/2022 10:34 AM EST) PT CLASS E RAD ADMITDTTM RAD PT RAD INFO [id number]^C HANDER^SUNEE R RAD EXAM DESC XCXR2^XR CHEST [...] who have questions please contact the health chiropractic care that requested your imaging first. ? Narrative 11/08/2022 10:37 AM EST EXAMINATION: XR [...] patients who have questions please contactthe health chiropractic care that requested your imaging first. Eve Frost MD IMG DX ORDERABLES documented in this encounter Visit Diagnoses Not on filedocumented in this encounter Care Teams Shrimp Packer Relationship Specialty Start Date End Date Anibal Mtz MD [address] [place] [address] PCP - General Family Medicine 01/17/19 11/17/22 documented as of this encounter
--- OUTSIDE RECORDS SUMMARY | 2024-09-07 11:12 | XMS_ITS | Encounter Summary ---
Author Organization [place] [address] Care Team Providers Care Health Teacher Name Role Phone Anibal Mtz MD Primary Care Provider [phone] Encounter Details Date Type Department Care Team (Late st Contact Info) Description 01/18/2019 3:00 PM EDT Interpretation Only Cardiology at [address] [address] Alberto Powell Jr., MD Dizziness Social History [...] AM EST Office Visit Cardiology at [address] [address] Mushtaq Murphy APRN documented as of this [...] giddiness documented in this encounter Care Teams Health Teacher Relationship Specialty Start Date End Date Anibal Mtz MD [address] [place] [address] PCP - General Family Medicine 01/17/19 11/17/22 documented as of this encounter
--- OUTSIDE RECORDS SUMMARY | 2024-09-07 11:12 | XMS_ITS | Encounter Summary ---
Author Organization [facility] [place] [address] Care Team Providers Care Training Development Specialist Name Role Phone Unknown Primary Care Provider Unavailabl e Encounter Details Date Type Department Care Team (Late st Contact Info) Description 12/03/2018 Interpretation Only [address] [phone] Ac Albrecht PA [address] [place] [address] [place] [address] Social History Tobacco Use Types Packs/Day Years [...] AM EST Office Visit Cardiology at [address] [phone] Mushtaq Murphy APRN documented as of this [...] on filedocumented in this encounter Care Teams Training Development Specialist Relationship Specialty Start Date End Date Unknown None PCP - General 08/04/10 01/16/19 documented as of this encounter
--- OUTSIDE RECORDS SUMMARY | 2024-09-07 11:12 | XMS_ITS | Encounter Summary ---
Author Organization [facility] Address [facility] [place] [address] Care Team Providers Care Legal Receptionist Name Role Phone Unknown Primary Care Provider Unavailabl e Encounter Details Date Type Department Care Team (Late st Contact Info) Description 01/13/2019 9:05 PM EDT Ancillary Procedure Radiology Library [place] [phone] Sunny Aviles MD [facility] [place] [address] Social History Tobacco Use Types Packs/Day Years [...] 10:00 AM EST Office Visit Cardiology at [address] [place] [phone] Mushtaq Murphy, ETL PROGRAMMER documented as of this encounter Procedures Procedure [...] Aviles MD IMG FILM LIBRARY ORDERABLES [place], [place] documented in this encounter Visit Diagnoses Not on filedocumented in this encounter Care Teams Legal Receptionist Relationship Specialty Start Date End Date Unknown None PCP - General 08/04/10 01/16/19 documented as of this encounter
== END 2024-09-11 23:59 | disposition home or self-care (01) ==
LOC: CR 11:04
PROVIDERS: PCP Nurse Practitioner Primary Care; Visit Provider Internal Medicine Cardiovascular Disease
DX: I21.09 ST elevation (STEMI) myocardial infarction involving other coronary artery of anterior wall (principal); Z95.5 Presence of coronary angioplasty implant and graft; Z51.89 Encounter for other specified aftercare
CPT/HCPCS: S9472

== ENCOUNTER 2024-09-19 11:51 | Emergency (ER) | payer MEDICARE, SELFPAY ==
[2024-09-19] VITALS (26 sets, daily range): BP systolic 112–146; BP diastolic 62–77; PULSE 50–152; RESP 11–22; TEMP 36.4; O2SAT 97–100
--- NOTE | 2024-09-19 11:45 | RT.EKG_ITS ---
APPROVED REPORT Exam: Resting ECG Reason for Exam: Chest Pain Patient Location: E HR:59 bpm ECG Measurements Heart Rate 59 AXIS LA 162 P 84 QRSd 98 QRS -43 QT 464 T 140 QTc 459 Conclusion Sinus bradycardia...rate< 60 Ventricular bigeminy...bigeminy string>4 w/ V complexes Probable left atrial enlargement...P >50mS, <-0.10mV V1 Inferior infarct, old...Q >35mS, II III aVF Probable anteroseptal infarct, recent...Q, ST>0.15mV, T neg, V1-V2
--- NOTE | 2024-09-19 12:00 | RT.EKG_ITS ---
APPROVED REPORT Exam: Resting ECG Reason for Exam: Patient Location: E HR:52 bpm ECG Measurements Heart Rate 52 AXIS VT 163 P 67 QRSd 103 QRS -31 QT 471 T 141 QTc 439 Conclusion Sinus bradycardia...rate< 60 Anterior infarct, recent...Q >30mS, ST >0.15mV, T neg, V2-V5 Abnormal T, consider ischemia, lateral leads...T <-0.20mV, I aVL V5 V6
--- NOTE | 2024-09-19 12:04 | W.ED.GENAD ---
Discharge Plan Disposition Patient Disposition: Home Condition: Good Discharge Details Clinical Impression: Chest pain Primary Care Provider: CAROLA BELLA ED Provider: Pratibha Solano Home Meds and New Rx's Prescriptions: Continued polyethylene glycol 3350 [Miralax] 17 GM powder in packet 255 gm PO for colonoscopy Qty: 1 0RF bisacodyl [Dulcolax (bisacodyl)] 5 MG tablet,delayed release (DR/EC) 5 mg PO ONCE Qty: 4 0RF Rx Instructions: Take as directed. nitroglycerin 1 applic HI DIRECTED losartan 25 mg tablet 12.5 mg PO DAILY aspirin 81 mg tablet,delayed release (DR/EC) 81 mg PO DAILY atorvastatin 80 mg tablet 80 mg PO DAILY clopidogrel 75 mg tablet 75 mg PO DAILY dapagliflozin propanediol [Farxiga] 10 mg tablet 10 mg PO DAILY metoprolol succinate 25 mg tablet extended release 24 hr 25 mg PO DAILY spironolactone 25 mg tablet 12.5 mg PO DAILY tamsulosin 0.4 mg capsule 0.8 mg PO DAILY Discharge Instructions Instructions: Chest Pain, Adult ED Additional Instructions: Your labs, ECG and imaging are reassuring here today. However, I do encourage you to continue with your medication and use your nitroglycerin should you have any recurrence of your chest discomfort. I am worried that some of your discomfort may have been associated with you elevating your activity level and pushing yourself to quickly after surgery. Please follow the recommendations from cardiology with how much to push yourself and advance your activities. Please keep a journal about your symptoms. Please use your nitro if you develop any further chest pain. Please call your cardiology team and schedule follow up appointment in the next 2 weeks and ask about continued restrictions. If you develop any new/worsening symptoms, please seek care urgently once again. Referrals: CAROLA BELLA [Primary Care Provider] - Discharge Data Discharge Date/Time-TO BE ENTERED AT DEPARTURE: 09/19/24 14:35 HPI General Date/Time Provider Initiated Documentation: 09/19/24 11:54. Limitations to Documentation: no limitations. Information obtained by: patient, RN notes reviewed and old records reviewed. History of Present Illness 74 year old M presents to the emergency department with the chief complaint of chest pain, described as mild, with intensity rated at 1. Quality is described as aching, and is localized to the chest. Patient reports no radiation. Patient started experiencing this minute(s) and it has been now resolved. Immobilization improves symptom(s), Movement worsens symptoms . Patient notes no other symptoms.. Patient did receive the following treatments prior to arrival, none Related Data Home Medications ?Medication ?Instructions ?Recorded ?Confirmed bisacodyl 5 mg tablet,delayed 5 mg PO ONCE #4 tabs 07/07/17 09/19/24 release (Dulcolax (bisacodyl)) polyethylene glycol 3350 17 gram 255 gm PO for colonoscopy #1 g 07/07/17 09/19/24 oral powder packet (Miralax) losartan 25 mg tablet 12.5 mg PO DAILY 01/14/23 09/19/24 nitroglycerin 1 applic HI DIRECTED 01/14/23 09/19/24 aspirin 81 mg tablet,delayed 81 mg PO DAILY 08/24/24 09/19/24 release atorvastatin 80 mg tablet 80 mg PO DAILY 08/24/24 09/19/24 clopidogrel 75 mg tablet 75 mg PO DAILY 08/24/24 09/19/24 dapagliflozin propanediol 10 mg 10 mg PO DAILY 08/24/24 09/19/24 tablet (Farxiga) metoprolol succinate 25 mg 25 mg PO DAILY 08/24/24 09/19/24 tablet,extended release 24 hr spironolactone 25 mg tablet 12.5 mg PO DAILY 08/24/24 09/19/24 tamsulosin 0.4 mg capsule 0.8 mg PO DAILY 08/24/24 09/19/24 Previous Rx's ?Medication ?Instructions ?Recorded bisacodyl 5 mg tablet,delayed 5 mg PO ONCE #4 tabs 07/07/17 release (Dulcolax (bisacodyl)) polyethylene glycol 3350 17 gram 255 gm PO for colonoscopy #1 g 07/07/17 oral powder packet (Miralax) Allergies Allergy/AdvReac Type Severity Reaction Status Date / Time poison gabino extract Allergy Unknown Other (See Verified 09/19/24 12:01 Comment) No Known Drug Allergies Allergy Other (See Verified 09/19/24 12:01 Comment) General Stated Complaint: Chest Pain JOHANNA: 2 Review of Systems Constitutional Constitutional: Reports as per HPI, Denies fever(s), Denies headache(s), Denies lethargy and Denies poor appetite Eyes Eyes: Denies change in vision ENT Ears, Nose, Mouth, and Throat: Denies dizziness and Denies headache(s) Cardiovascular Cardiovascular: Reports as per HPI, Denies dyspnea and Denies dyspnea on exertion Respiratory Respiratory: Reports as per HPI, Denies chest congestion, Denies cough, Denies pain on inspiration, Denies pain with cough, Denies dyspnea and Denies dyspnea on exertion Gastrointestinal Gastrointestinal: Reports as per HPI, Denies abdominal pain, Denies diarrhea, Denies nausea and Denies vomiting Genitourinary Genitourinary: Denies system reviewed and no additional complaints, except as documented (denies change in urinary habits) Musculoskeletal Musculoskeletal: Reports as per HPI and Denies back pain Integumentary/Breasts Skin/Breast: Reports as per HPI and Denies rash Neurologic Neurologic: Reports as per HPI, Denies dizziness and Denies headache(s) Exam Const General: cooperative, healthy appearing, comfortable, no acute distress and well developed Nutritional Appearance: average body habitus and well nourished Orientation: alert, awake and oriented x3 HENMT Head: normal to inspection Ears: hearing grossly normal bilaterally Mouth: moist mucous membranes Chest Chest: normal inspection of the chest, normal palpation of entire chest wall and no crepitus Resp Effort & Inspection: normal respiratory effort, able to speak in complete sentences and no respiratory distress Auscultation: clear to auscultation bilaterally, no rales, no rhonchi and no wheezes Cardio Rate: regular rate Rhythm: regular rhythm Heart Sounds: S1 normal and S2 normal Skin General skin exam: no rashes or lesions noted Trauma: no lacerations or abrasions Neuro General: patient alert, patient awake and patient oriented x3 Cognition: normal cognition Speech: speech normal Gait: normal gait Extrem General: normal to inspection, capillary refill normal, no pedal edema, no calf tenderness and normal gait Course Vital Signs Vital signs: Vital Signs Temperature 36.4 C 09/19/24 11:55 Pulse 94 H 09/19/24 11:55 Respiratory Rate 18 09/19/24 11:55 Blood Pressure 124/77 09/19/24 11:55 Pulse Oximetry 97 09/19/24 11:55 Temperature 36.4 C 09/19/24 11:55 Pulse 94 H 09/19/24 11:55 Respiratory Rate 18 09/19/24 11:55 Blood Pressure 124/77 09/19/24 11:55 Pulse Oximetry 97 09/19/24 11:55 Pain Level 1 09/19/24 11:55 Medical Decision Making Patient is a pleasant 74-year-old male with past medical history of hypertension, hyperlipidemia, tremor, history of substance use, ADHD, ACS with STEMI requiring stenting recently of the LAD, presented with chief complaint of chest pain. He reports that he had some minimal chest discomfort yesterday while exerting himself and again, while at cardiac rehab he had what he rates as a 1 out of 10 chest pain today. He states that while the pain is similar to when he had his TX, it is not nearly as severe. States that he did feel slightly lightheaded. Did not feel short of breath. No nausea or vomiting. He did not use his nitroglycerin. States that the pain has resolved at this point. Patient has been taking his aspirin and clopidogrel as prescribed, took all of his medications this morning. Reviewed patient's chart, was seen by his cardiology team recently. They do note that the patient did have cardiogenic shock requiring Impella and pressure support. LAD was stented. At the time of discharge, ejection fraction was 38%. On exam, patient appears non-toxic, resting comfortable, no respiratory distress. Hemodynamically stable. ECG reveieewd by Dr. Oswald, no acute ischemic changes, chronic abnroamlities related to old infarct. CXR WNL, labs reassuring. Awaiting delta troponin. Troponin with remains within normal limits. No significant elevation compared to the initial. Discussed these findings with the patient. Chest x-ray without significant abnormality per radiologist. Patient admits that since having his TX and stent in July he more recently has become very aggressive with trying to get back to his baseline routine and exercise. Sounds like he has been going outside of the recommendations set forth by his cardiology team which may be contributing to some of his discomfort. He does have an upcoming appointment with them as well as an echocardiogram. I did advise that he call to schedule more urgent follow-up. I also advised that he should be using his nitroglycerin should he develop any recurrent symptoms. Strict return precautions were discussed. Patient feels safe going home and will contact his primary care and cardiology team. Patient is already on aspirin as well as Plavix and will continue with these. All of his questions and concerns were addressed and he is in agreement this plan. This documentation was generated using [employer] dictation system, please disregard any oddities of phrase or misspellings. Quality:SDOH Health Related Social Needs: No Data to Display PFSH All Active Problems (Updated 09/19/24 @ 14:14 by MAGGIE Samuel) Chest pain (Acute) STEMI (ST elevation myocardial infarction) (Acute) Medical History Ex-smoker Essential hypertension Hyperlipidemia Tremor Essential tremor History of substance abuse Prediabetes Vitamin D deficiency Hypertension ADHD (attention deficit hyperactivity disorder) as child Surgical History Hand Surgery (09/12/95) Glass removed Colonoscopy - [facility] (07/22/17) Social History Smoking/Tobacco Use Status: Former Tobacco Use Smoking risk assessment performed?: Yes Alcohol Intake: former Drug use: Never Substance use type: does not use Housing: house Do you feel safe at home: Yes Do you feel safe in your relationship?: Yes
[2024-09-19] MEDS: Aspirin 81 MG CHEW 243 MG CH (12:43)
--- NOTE | 2024-09-19 12:50 | DI.RAD_ITS ---
Exam(s) XR CHEST 2V PA LATERAL EXAM: XR CHEST 2V PA LATERAL CLINICAL HISTORY: Chest pain TECHNIQUE: 2D digital imaging was performed of the chest. Two images were obtained. PA and lateral views were obtained. COMPARISON: No exams were available for comparison FINDINGS: MEDIASTINUM: Normal. HEART: Normal. PULMONARY VASCULATURE: Normal. LUNGS: Clear. PLEURAL SPACE: No pleural effusion or pneumothorax. BONE:Within normal limits for the patient's age. OTHER FINDINGS:Normal. IMPRESSION: No acute pulmonary findings. DATA REPOSITORY: RADIATION DOSE DELIVERED:
[2024-09-19 12:53] LABS: Abs Immature Grans 0.01 10^3/uL (0.0-0.06); Absolute Basophil Count 0.05 10^3/uL (0.0-0.2); Absolute Eosinophil Count 0.13 10^3/uL (0.0-0.7); Absolute Lymphocyte Count 1.22 10^3/uL (1.2-3.4); Absolute Monocyte Count 0.49 10^3/uL (0.1-0.8); Absolute Neutrophil Count 3.77 10^3/uL (1.2-6.7); Basophils % 0.9 %; Eosinophils % 2.3 %; HCT 42.8 % (40.0-50.0); HGB 13.9 g/dL (13.5-17.5); Immature Grans % 0.2 %; Lymphocytes % 21.5 %; MCH 27.1 pg (27.0-33.0); MCHC 32.5 % (32.0-36.0); MCV 84 fL (80-95); MPV 10.4 fL (8.0-11.0); Monocytes % 8.6 %; Neutrophils % 66.5 %; Platelet Count 178 10^3/uL (130-400); RBC 5.12 10^6/uL (4.36-5.78); RDW 14.4 % (11.8-14.1); RDW-SD 43.9 fL; WBC 5.67 10^3/uL (4.4-10.8)
--- OUTSIDE RECORDS SUMMARY | 2024-09-19 13:07 | XMS_ITS | Clinical Summary ---
Author Organization [facility] [place] [address] Care Team Providers Care Manufacturing Engineer Machining Name Role Phone Alexia Mtz FREDRICK Primary Care Provider [phone] Allergies No known active allergies Medications Medication [...] EST - 07/31/2024 5:30 PM EST [place] [phone] Maldonado Luis MD CARDIAC CATHETERIZATION 07/29/2024 6:32 PM EST - 07/29/2024 11:59 PM EST Hospital Encounter [facility] at [address] [phone] Arvin Becerra MD Discharge Disposition: Home 07/29/2024 12:00 PM EST - 07/29/2024 12:54 PM [place] [phone] Vahe Marvin MD CARDIAC CATHETERIZATION 07/29/2024 11:45 AM EST - 08/04/2024 5:00 PM EST [place] [phone] Vahe Marvin MD Dadekian, Gregory A, MD Welch, Terrence D, MD Vinod, Poornima, MD Kostojchin, Anastas, MD Kussaga, Frank M, MD ST elevation myocardial infarction involving left anterior descending (LAD) coronary artery; HFrEF (heart failure with reduced ejection fraction) Discharge Disposition: Home 07/29/2024 [place] [phone] Susannah Watts PA 07/29/2024 Interpretation Only [address] [phone] Deondre Ferrera MD 07/29/2024 Notes [place] [phone] Ivan Hernandez MD 07/29/2024 External [place] [phone] 07/28/2024 Interpretation Only [address] [phone] Quinten Coffey MD 06/25/2024 Lab [place] [phone] Aubrey Cali MD Pyuria from Last 3 [...] oz pur e alcohol) [facility] Utilities Answer Date Recorded In the past 12 months has th e [employer], gas, oil, or water [employer] threatened to shut off services in your [...] 10:00 AM EST Office Visit Cardiology at [address] [phone] Mushtaq Murphy, FREDRICK Health Maintenance Due Date [...] HEMATOLOGY ORDERABLE S [facility] [place] [address] * Magnesium (08/04/2024 6:08 AM EST) Only the most recent of8 resultswithin the time period is included. Pathologist [facility] Department Magnesium 0.85 0.69 - 1.07 mMol/L 08/04/2024 7:07 AM [facility] Blood VENOUS BLOOD SPECIMEN / Unknown Venipuncture / Unknown 08/04/2024 6:08 AM EST 08/04/2024 6:19 AM EST Bridgette Stauffer MD CHEMISTRY ORDERABLES [facility] [place] [address] * Basic Metabolic Panel (08/04/2024 6:08 AM EST) Only the most recent of7 resultswithin the time period is included. [facility] Glucose 93 65 - 199 mg/dL 08/04/2024 [...] - 10.5 mg/dL 08/04/2024 7:07 AM EST [facility] Est Glomerular Filtration Rate - Male 74 mL/min/1. 73 m?? 08/04/2024 7:07 AM EST [facility] Comment: [...] Stauffer MD CHEMISTRY ORDERABLES Performing Organization Address City/[facility] Co de Phone Number [facility] [place] [address] * POC, GLUCOSE (08/02/2024 7:47 AM EST) Only the most recent of16 resultswithin the time period is included. [facility] Signature Glucometer, POC 89 65 - 199 mg/dL 08/02/2024 7:47 AM EST [facility] Comment:Supplemental ranges: <140 mg/dL before meals <180 mg/dL all other times of the day. Blood CAPILLARY BLOOD / Unknown 08/02/2024 7:47 AM EST 08/02/2024 7:47 AM EST Arnel Parker MD POINT OF CARE TEST O RDERABLES Performing Organization Address City/[facility] Co de Phone Number [facility] [place] [address] * Scan Doc: Telemetry Strips (08/02/2024 7:37 [...] EST Jay Silverio MD CHEMISTRY ORDERABL ES [facility] [place] [id number] * (ABNORMAL) Cooximetry, POC (08/01/2024 10:45 AM EST) Only the most recent of2 resultswithin the time period is included. pO2, Coox 32 mmHg 08/01/2024 10:48 AM EST [facility] Hemoglobin, Coox 12.9(L) 13.7 - 16.5 g/dL 08/01/2024 10:48 AM EST [facility] Oxyhemoglobin, Coox 66.7 % 08/01/2024 10:48 AM [facility] Carboxyhemoglo bin, Coox 1.1 % 08/01/2024 10:48 AM EST [facility] Comment: Nonsmokers: 0.5-1.5% COHB ?? Smokers: Variable ??but usually less than 10% ?? Toxic: 20-30% COHB ?? Lethal: Greater than 60% COHB Methemoglobin, Coox 0.3 <=1.5 % 08/01/2024 10:48 AM EST [facility] Blood (Mixed Venous) 08/01/2024 10:45 AM EST 08/01/2024 10:48 AM EST Arnel Parker MD POINT OF CARE TEST O RDERABLES [facility] [place] [address] * CARDIAC CATHETERIZATION (07/31/2024 5:53 PM EST) Only the most recent of2 resultswithin the time period is included. Anatomical Region Laterality Modality Other Narrative 08/01/2024 12:37 PM EST ?[facility] ? Cardiac Catheterization/Intervention Report ? Patient Name: Korey Montoya Kyrie. ? Procedure Date: 07/31/2024 ? A #: [id number] ? Primary Physician: Janelle, Maldonado T ? Case #: [id number] ? File Name: [id number] ? Catheterization Order Number: [id number] ? [facility] ? Final Report [place], [place] ? Patient Name: ? Korey Montoya ?ID#: ?[id number] ? : ?1950 ? Procedure Date: ? [...] ? Comments: ?Impella removed from the right COAT CHECKER with deployment of Perclose and ?Angioseal. ??Good [...] Maldonado Luis MD - 08/01/2024 [facility] Cardiac Catheterization/Intervention Report Patient Name: Korey Montoya Procedure Date: 07/31/2024 A #: [id number] Primary Physician: Maldonado Luis Case #: [id number] File Name: [id number] Catheterization Order Number: [id number] [facility] FinalReport [place], [place] Patient Name: Korey Montoya ID#:[id number] :1950 Procedure Date: July 31, 2024 Case [...] designated as ASA Class IV. The [facility] clinical frailtyscale is 4: Vulnerable. [...] procedures. Comments: Impella removed from the right COAT CHECKER with deployment of Perclose and Angioseal. Good [...] 7.35 - 7.45 07/31/2024 8:30 AM EST [facility] PCO2, Arterial 29(L) 35 - 45 mmHg 07/31/2024 8:30 AM EST [facility] PO2, Arterial [...] CARE TEST O RDERABLES Performing Organization Address City/[facility]/ZIP Co de Phone Number [facility] [place] [address] * (ABNORMAL) Hepatic Function Panel (07/31/2024 1:08 [...] Parker MD CHEMISTRY ORDERABLES Performing Organization Address City/[facility]/ZIP Co de Phone Number [facility] [place] [address] * (ABNORMAL) Phosphorus (07/30/2024 3:08 PM EST) Only the most recent of3 resultswithin the time period is included. Phosphorus 2.1(L) 2.5 - 4.5 mg/dL 07/30/2024 3:58 PM EST [facility] Blood VENOUS BLOOD SPECIMEN / Unknown Venipuncture / Unknown 07/30/2024 3:08 PM EST 07/30/2024 3:12 PM EST Jay Silverio MD CHEMISTRY ORDERABL ES [facility] [place] [address] * ECHO LMTD W CONTRAST W LMTD SPEC DOPP COLOR DOPP (07/30/2024 11:42 AM EST) Anatomical Region Laterality Modality Cardiac Other 07/30/2024 10:2 2 AM EST Narrative 07/30/2024 12:34 PM EST [address] [place] [address] ? Echocardiogram Report Name: MONTOYA KOREY Kyrie ? Study Date: 07/30/2024 10:22 AMBP: 124/66 mmHg : 1950 ? Height: 168 cm ? Account: [id number] Age: 74 yrs ? Weight: 65 kg Gender: Male ?BSA: 1.7 m2 Ordering Physician: Jay Silverio MD Referring Physician: DEONDRE FERRERA Performed By: OMERO Millan Reason For Study: ST elevation myocardial infarction involving left anterior descending (LAD) coronary artery Interpreting Fellow: Ivan Hernandez. Exam Location: [facility]. Interpretation Summary Left ventricle is severely [...] Compared to the overnight study by the continuity director fellow the impella position is stable. 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 Procedure Limited - 48926. Image enhancement Definity was used for both [...] Note Kathleen Banda MD - 07/30/2024 [address] [place] [address] Echocardiogram Report Name: KOREY MONTOYA Study Date: 0:22 AMBP: 124/66 mmHg : 1950 Height: 168 cm Account: [id number] Age: 74 yrs Weight: 65 kg Gender: Male BSA: 1.7 m2 Ordering Physician: Jay Silverio MD Referring Physician: DEONDRE FERRERA Performed By: OMERO Millan Reason For Study: ST elevation myocardial infarction involving leftanterior descending (LAD) coronary artery Interpreting Fellow: Ivan Hernandez. Exam Location: [facility]. Interpretation Summary Left ventricle is severely [...] Compared to the overnight study by the continuity director fellow the impella positionis stable. The global left ventricular systolic function has improvedpredominantly via recruitment outside the LAD territory which remains akinetic. Procedure Limited - 71655. Image enhancement Definity was used for both [...] [facility] Test Catalog Troponin - [email or web address] [email or web address] Reference: Fourth [place] Definition of Myocardial Infarction. Journal of the [place] [employer] 2018;72:1040-7670 Blood VENOUS BLOOD SPECIMEN / Unknown Venipuncture / Unknown 07/30/2024 8:09 AM EST 07/30/2024 8:26 AM EST Jay Silverio MD CHEMISTRY ORDERABL ES Performing Organization Address City/State/[facility] Co de Phone Number [facility] [place] [address] * Echocardiogram Transthoracic (07/30/2024 1:41 AM EST) Anatomical Region Laterality Modality Cardiac Other 07/30/2024 1:41 AM EST Narrative 07/30/2024 8:23 AM EST [address] [place] [address] ? Echocardiogram Report Name: KOREY MONTOYA ? Study Date: 07/30/2024 01:41 AM : 1950 ? Height: 168 cm Age: 74 yrs ? Weight: 5.9 kg Gender: Male ?BSA: 0.63 m2 Performed By: Beatris Ching MD Reason For Study: STEMI, [place] History: ASCVD, HTN, HLD Interpreting Fellow: Beatris Ching. Interpretation Summary This is a limited study performed by a fellow continuity director to evaluate for cardiogenic shock with [...] study available for comparison. Procedure Limited - 39512. Suboptimal quality. There is sinus bradycardia. Left [...] Note Kathleen Banda MD - 07/30/2024 [address] [place] [address] Echocardiogram Report Name: KOREY MONTOYA Study Date: 07/30/2024 01:41AM : 1950 Height: 168 cm Age: 74 yrs Weight: 5.9 kg Gender: Male BSA: 0.63 m2 Performed By: Beatris Ching MD Reason For Study: STEMI, VT History: ASCVD, HTN, HLD Interpreting Fellow: Beatris Ching. Interpretation Summary This is a limited study performed by a fellow continuity director to evaluate forcardiogenic shock with impella in. [...] study available for comparison. Procedure Limited - 02973. Suboptimal quality. There is sinus bradycardia. Left [...] Recheck AB POSITIVE 07/29/2024 10:13 PM EST [facility] Blood VENOUS BLOOD SPECIMEN / Unknown Venipuncture / Unknown 07/29/2024 6:43 PM EST 07/29/2024 7:15 PM EST Jay Silverio MD BLOOD BANK LAB ORD ERABLES [facility] [place] [address] * Type and screen ([facility] (07/29/2024 5:56 PM EST) Pathologist [facility] ABORH Type AB POSITIVE 07/29/2024 9:44 PM EST [facility] PATIENT HISTORY Not Found 07/29/2024 9:44 PM EST [facility] Expires at [id number] on: 08/01/2024 07/29/2024 9:44 PM EST [facility] ANTIBODY SCREEN AUTOMATED Negative 07/29/2024 9:44 PM EST [facility] T&S only valid at [facility] 07/29/2024 9:44 PM EST [facility] Blood VENOUS BLOOD SPECIMEN / Unknown Venipuncture / Unknown 07/29/2024 5:56 PM EST 07/29/2024 6:07 PM EST Narrative [facility] - 07/29/2024 9:44 PM EST This Type and Screen result is only valid at the [facility] Jay Silverio MD BLOOD BANK LAB ORD ERABLES Performing Organization Address City/[facility] Co de Phone Number [facility] [place] [address] * EKG 12 Lead (07/29/2024 4:21 PM EST) Only the most recent of2 resultswithin the time period is included. [facility] Ventricular rate 72 BPM MUSE SYSTEM Atrial Rate 72 BPM MUSE SYSTEM P-R Interval 168 ms MUSE SYSTEM QRS Duration 82 ms MUSE SYSTEM Q-T Interval 392 ms MUSE SYSTEM QTC Calculated (Bezet) 429 ms MUSE SYSTEM Calculated P [place] 71 degrees MUSE SYSTEM Calculated R [place] 77 degrees MUSE SYSTEM Calculated T [place] 28 degrees MUSE SYSTEM INTERPRETATION Sinus rhythm with Premature supraventricular complexes and Occasional Premature ventricular complexes Low voltage QRS 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) Lateral injury pattern ACUTE FL / STEMI Abnormal ECG When compared with ECG of 29-JUL-2024 13:43, (unconfirmed) Serial changes of evolving Anteroseptal infarct Present Confirmed by MD Marcus, Roverto (1963) on 07/31/2024 5:30:06 AM MUSE SYSTEM 07/29/2024 4:21 PM EST 07/31/2024 5:30 AM EST Jay Sivlerio MD ECG ORDERABLES MUSE SYSTEM * Blood [...] - BLO OD ORDERABLES Performing Organization Address City/[facility]/ZIP Co de Phone Number [facility] [place] [address] * XR Chest One View (07/29/2024 2:30 PM EST) Only the most recent of3 resultswithin the time period is included. WORKSTATION ID [id number] RAD Anatomical Region Laterality Modality Chest N/A [...] have questions please contact the health manager critical care that requested your imaging first. [...] who have questions please contactthe health manager critical care that requested your imaging first. Vahe Marvin MD IMG DX ORDERABLES * TSH Rover (07/29/2024 2:03 PM EST) Thyroid Stimulating Hormone 0.70 0.27 - 4.20 mcIU/mL 07/29/2024 2:52 PM EST [facility] Blood VENOUS BLOOD SPECIMEN / Unknown Venipuncture / Unknown 07/29/2024 2:03 PM EST 07/29/2024 2:14 PM EST Vahe Marvin MD CHEMISTRY ORDERABLES [facility] [place] [address] * CRP, acute inflammation (07/29/2024 2:03 PM EST) C-Reactive Protein <3.0 <=4.9 mg/L 07/29/2024 2:52 PM EST [facility] Blood VENOUS BLOOD SPECIMEN / Unknown Venipuncture / Unknown 07/29/2024 2:03 PM EST 07/29/2024 2:14 PM EST Vahe Marvin MD CHEMISTRY ORDERABLES [facility] [place] [address] * (ABNORMAL) APTT (07/29/2024 2:03 PM EST) Partial Thromboplastin Time >160(HHH) 25 - 37 sec 07/29/2024 2:56 PM EST [facility] Blood VENOUS BLOOD SPECIMEN / Unknown Venipuncture / Unknown 07/29/2024 2:03 PM EST 07/29/2024 2:13 PM EST Vahe Marvin MD HEMATOLOGY ORDERABLE S [facility] [place] [address] * (ABNORMAL) Prothrombin Time (07/29/2024 2:03 PM [...] MD HEMATOLOGY ORDERABLE S Performing Organization Address City/State/[facility] Co de Phone Number [facility] [place] [address] * Hemoglobin A1c (07/29/2024 2:03 PM EST) [...] blood cell turnover may not be product sales representative of glycemic control. Reference Interval: [...] 2:03 PM EST 07/29/2024 2:14 PM EST [facility] - 07/29/2024 2:41 PM EST Estimated average glucose (eAG) is calculated from the equation described in: Quinten ALVES, Rikki J, Reno R, et al. ??Translating the A1C assay into estimated average glucose values. ??Diabetes Care 2008:31(8):6068-4125. Additional resources are available on the ADA website (diabetes.org). Vahe Marvin MD CHEMISTRY ORDERABLES [facility] [place] [address] * Lipid Panel (Reflex Direct LDL) (07/29/2024 [...] 2:03 PM EST 07/29/2024 2:14 PM EST [facility] - 07/29/2024 2:52 PM [...] ACC/AHA Guidelines (most recently Rolf et al. [facility] 06/15/22): * For individuals with [...] artery disease) Vahe Marvin MD CHEMISTRY ORDERABLES [facility] [place] [address] * (ABNORMAL) Comprehensive metabolic panel (07/29/2024 2:03 PM EST) Pathologist [facility] Glucose 243(H) 65 - 199 mg/dL 07/29/2024 3:11 PM EST [facility] Comment:Glucose Concentratio n >=200 mg/dL plus symptoms is consistent with Diabetes Mellitus. Blood Urea Nitrogen 13 10 - 20 mg/dL 07/29/2024 3:11 PM EST [facility] Creatinine 0.88 0.80 - 1.50 mg/dL 07/29/2024 3:11 PM EST [facility] Sodium 138 135 - [...] MD CHEMISTRY ORDERABLES [facility] [place] [address] * (ABNORMAL) Blood Gas, Venous POC (07/29/2024 [...] TEST O RDERABLES [facility] [place] [address] * (ABNORMAL) BLOOD GAS, POC (07/29/2024 12:46 [...] - 26.0 mmol/L 07/30/2024 7:30 AM EST [facility] Carbon Dioxide, POC 21(L) 22 - 31 mmol/L 07/30/2024 7:30 AM EST [facility] Blood VENOUS BLOOD SPECIMEN / Unknown 07/29/2024 12:46 PM EST 07/30/2024 7:30 AM EST Vahe Marvin MD POINT OF CARE TEST O RDERABLES Performing Organization Address [facility] Co de Phone Number [facility] [place] [address] * External Cardiology Result (07/29/2024 10:13 AM EST) Anatomical Region Laterality Modality Other Historical Provider EXTERNAL CARDIOLO GY RESULT * Urine culture (06/25/2024 11:55 AM EDT) Urine Culture No growth 06/26/2024 12:22 PM EDT [facility] Urine URINE SPECIMEN OBTAINED BY CLEAN CATCH PROCEDURE / Unknown 06/25/2024 11:55 AM EDT 06/25/2024 5:18 PM EDT Aubrey Cali MD MICROBIOLOGY - GENER AL ORDERABLES Performing Organization Address [facility] Co de Phone Number [facility] [place] [address] * COLONOSCOPY (08/30/2023 10:57 AM EST) COLONOSCOPY [facility] Endoscopy Procedure Date: 08/30/2023 10:57 AM ? Patient Name: Korey Montoya ? Date of : 1950 ? Age: 73 ? Order #: [id number] ? Instrument Name: [id number] ? Procedure: ? Colonoscopy Indications: ? Rectal [...] preparation was evaluated ? using the BBPS ([place] Bowel ? Preparation Scale) with scores of: [...] 08/30/2023 10:5 7 AM EST Yoel Artis CONTINUITY READER GENERAL SURGICAL ORD ERABLES PROVATION from Last 3 Months or Most Recently Relevant to Health Maintenance Advance Directives * Attempt Cardiopulmonary Resuscitation - Inpatient (Latest Code Status on File) Date Activated Date Inactivated Comments 07/29/2024 2:01 PM 08/04/2024 7:34 PM Question Answer Comments Code Status decision made by: Patient Content of discussion: pre-arrest limitations Care Teams Manufacturing Engineer Machining Relationship Specialty Start Date End Date Alexia Mtz APRN [address] [place] [address] PCP - General Family Medicine 07/30/24
--- OUTSIDE RECORDS SUMMARY | 2024-09-19 13:08 | XMS_ITS | Encounter Summary ---
Author Organization [facility] Address [facility] [place] [address] Care Team Providers Care Taxi Proprietor Name Role Phone [place] Shun ALCALA Primary Care Provider [phone] Reason for Referral * Consultation (Routine) - Authorized Specialty Diagnoses / Procedures Referred By Conteleazar t Referred To Contact Cardiology Diagnoses HFrEF (heart failure with reduced ejection fraction) [facility]INIC S/P D/C acute HFrEF Alex Small MD [facility] [address] [place] [address] Mushtaq Murphy APRN [facility] [place] [address] Referral ID Status Reason Start Date Expiration Date Visits Requested Visits Authorized [id number] Authorized Consult, Test & Treat 08/04/2024 08/04/2025 1 1 * Consultation (Routine) - Authorized Specialty Diagnoses / Procedures Referred By Contac t Referred To Contact Cardiology Diagnoses ST elevation myocardial infarction involving left anterior descending (LAD) coronary artery Yrn Ward MD [facility] [place] [address] Cardiac Rehab, [address] [place] [address] Referral ID Status Reason Start Date Expiration Date Visits Requested Visits Authorized [id number] Authorized Consult, Test & Treat 08/04/2024 01/31/2025 36 36 Reason for Visit * Auth/Cert (Routine) Specialty Diagnoses / Procedures Referred By Contac t Referred To Contact Diagnoses STEMI (ST elevation myocardial infarction) STEMI Procedures ER IPI Vahe Marvin MD [facility] [place] [address] [address] [facility] Referral ID Status Reason Start Date Expiration Date Visits Re quested Visits Authorized [id number] 1 1 Encounter Details Date Type Department Care Team (Latest Contact Info) Description 07/29/2024 11:45 AM EST - 08/04/2024 5:00 PM EST Hospital Encounter Cardiovascular [place] [phone] Vahe Marvin MD [facility] [address] [address] Jay Silverio MD [facility] [address] Krystal Parker MD [facility] [place] [address] Bridgette Stauffer MD [facility] [place] [address] Yrn Ward MD [facility] [place] [address] Alex Small MD [facility] [place] [address] [address] ST elevation myocardial infarction involving left anterior [...] any time in the past 12 m [facility], were you homeless or living in [...] Korey Montoya Patient Age: 74 y.o. Language: Brazilian Race: White Ethnicity: Not nor Admit date: [...] please contact your inpatient physician through the [facility] Mathematics Department Chair . Issues afterhours and on weekends will [...] EKG. Patient transferred via air ambulance to [facility] on 07/29 for LHC and LOW to [...] EKG. Was transferred via air ambulance to [facility] for further management and LHC demonstrated 100% occlusion. No significant RCA, LMCA, or LCX disease. LOW placed in LAD with some residual distal disease meriting placement of overlapping distal stent. TTE showed apical akinesis and inferior hypokinesis with EF 20%. RHC showed elevated filling pressures. Impella placed and P-level 6 at time of transfer to [facility]. CI initially 1.97, improved to 2.2 [...] the next year. Access was via right FAMILY SPECIALIST and this sitewas clean, dry and intact [...] for Chest pain. Replaces: nitroGLYcerin 400 mcg/spray Collins, Non-Aerosol 0.4 mg Quantity: 90 tablet Refills: [...] Refills: 0 STOPPED Medications nitroGLYcerin 400 mcg/spray Collins, Non-Aerosol Commonly known as: NITROLINGUAL Replaced by: [...] of one year. After this time, your wind plant manager will determine if you need to [...] away. Stay on the phone. The emergency strip machine operator will tell you what to [...] appointments: During 8am-5pm Tuesday through Tuesday call [phone] to speak with a nurse in the cardiology clinic All other times call [phone] and ask to speak to the outside sales account executive metal control coordinator. Follow up Appointments: PCP Alexia Mtz, MEAT GRADING MACHINE OPERATOR [phone]. Please call to establish a follow up appointment within 1-2 weeks of discharge. Cardiology. Referral to heart failure has been sent. General Instructions None Future Appointments and Orders Future Orders Complete By Expires Referral to Cardiac Rehab [[id number] Custom] As directed Process Instructions: If no progress note charted, please enter Clinical details in comments. Scheduling Instructions: Questions: My question or request is: STEMI, PCI- cardiac rehab at [facility] Referral to Cardiology [REF12 Custom] [...] of one year. After this time, your wind plant manager will determine if you need to [...] away. Stay on the phone. The emergency strip machine operator will tell you what to [...] appointments: During 8am-5pm Tuesday through Tuesday call [phone] to speak with a nurse in the cardiology clinic All other times call [phone] and ask to speak to the outside sales account executive metal control coordinator. Follow up Appointments: PCP Alexia Mtz, MEAT GRADING MACHINE OPERATOR [phone]. Please call to establish a follow up [...] EKG. Patient transferred via air ambulance to [facility] on 07/29 for LHC and LOW to [facility] for 100% occlusion Social History: Pt lives with his in a 1 level home with 2 NAOMI. 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 He [...] Total time: 35 (tef) minutes Time IN/OUT: [id number] ZAIDA DUBOSE PT Pager: [phone] Physical Therapy Inpatient Rehabilitation Department * Yrn Ward MD - 08/03/2024 10:38 AM EST CV HOSPITALIST 2 - [facility] DAILY PROGRESS NOTE Page [phone] to reach a provider 04/04 Admit Date: [...] or before 29-JUL-2024) Lateral injury pattern ACUTE MS / STEMI Abnormal ECG When compared with [...] Compared to the overnight study by the metal control coordinator fellow the impella position is stable. 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 [facility] 07/29/24 Conclusions: * One vessel coronary artery disease (LAD) * Mild pulmonary hypertension * Elevated pulmonary capillary wedge pressure * Successful stent insertion of the proximal LAD lesion * See Dual Antiplatelet (DAPT) Recommendations above * Successful impella placement for cardiogenic shock. Telemetry: I have personally reviewed and interpreted the telemetry from the last 24 hours. [facility] Assessment: ASSESSMENT: Korey Montoya is a 74 y.o. male w/ PMH of hypertension, HLD, and BPH who presents for chief concern of chest pain after being found to have ST elevations on EKG. Patient transferred via air ambulance to [facility] on 07/29 for LHC and LOW to [...] to be determined OT: PCP Alexia Mtz, MEAT GRADING MACHINE OPERATOR [phone] * Zaida Dubose, PT - 08/02/2024 2:08 PM EST Physical Therapy Evaluation Patient profile: Korey Montoya is a 74 y.o. male w/ PMH of hypertension, HLD, and BPH who presents for chief concern of chest pain after being found to have ST elevations on EKG. Patient transferred via air ambulance to [facility] on 07/29 for LHC and OLW to LAD for 100% occlusion Social History: Pt lives with his in a 1 level home with 2 NAOMI. 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 He [...] Total time: 37 (eval) minutes Time IN/OUT: 5225-9390 ZAIDA DUBOSE PT Pager: [phone] Physical Therapy Inpatient Rehabilitation Department * Gagan [...] EKG. Patient transferred via air ambulance to [facility] on 07/29 for LHC and LOW to LAD for 100% occlusion. TTE showed apical akinesis and inferior hypokinesis with EF 20%. RHC showed elevated filling pressures. Impella placed and P-level 6 at time of transfer to [facility]. CI initially 1.97, improved to 2.2 After impella. Received about 3 L of fluid during procedural course. Patient initially required norepinephrine 30, epinephrine 10, and vasopressin 0.04 for hemodynamic support, which was weaned upon arrival to [facility] to norepinephrine 20and levo 0.04 N [...] organfailure/deterioration? No Gagan Catherine MD 08/02/2024 * Krsytal Parker MD - 08/02/2024 6:43 AM EST Images from the original note were not included. Cardiology ICU Progress Note Patient info: Name: Korey Montoya : 1950 PCP: Alexia Mtz APRN PCP phone number: [phone] Date of Admission: 07/29/2024 ( Hospital Day 4 days ) Attending:Bridgette Stauffer MD ID: Korey Montoya is a 74 y.o. male w/ PMH of hypertension, HLD, and BPH on Hospital Day4 for chief concern of chest pain after being found to have ST elevations on EKG. Patient transferred via air ambulance to [facility] on 07/29 for LHC and LOW to [...] 07/29/24 1621 PHART 7.48* 7.44 7.38 7.37 [id number] 29* 29* 34* 36 PO2ART 71* 109* 141* 71* TXI8TVA 20.6 19.4* 19.5* 20.4 VBG (Venous Blood Gas) Recent Labs 07/29/24 1401 PHVEN 7.30* PO2VEN 39 WRS1TVK 20.1* Mixed Venous Sat No results for input(s): S3XFXT6 in the last 168 hours. Objective: Vitals [...] 07/29/24 1621 PHART 7.48* 7.44 7.38 7.37 SQZ5OUC 29* 29* 34* 36 PO2ART 71* 109* 141* 71* KEW8SBL 20.6 19.4* 19.5* 20.4 VBG (Venous Blood Gas) Recent Labs 07/29/24 1401 PHVEN 7.30* PO2VEN 39 UDG5EXN 20.1* Mixed Venous Sat No results for input(s): K9NRVU4 in the last 168 hours. Microbiology: Microbiology Results (Last 30 days) Procedure Component Value Units Date/Time Blood culture [[id number]] Collected: 07/29/241607 Lab Status: Preliminary result Specimen: Blood, Venous Updated: 08/01/24 170 Blood Culture No growth at 72 hours Blood culture [[id number]] Collected: 07/29/241607 Lab Status: Preliminary result Specimen: Blood, Venous Updated: 08/01/241700 Blood Culture No growth at 72 hours Imaging: Results for orders placed or performed during the hospital encounter of 07/29/24 XR Chest One View (Exam End: 07/29/2024 2:30 PM) Result Value WORKSTATION ID [id number] Impression 1. No pulmonary edema. 2. No pleural effusion. 3. No pneumothorax. Thank you for letting us participate in the care of this patient. If you are a health care provider and have any questions regarding this report, please contact the number below. For patients who have questions please contact the health long term care phlebotomist that requested your imaging first. Electronically signed by: Chris Candelaria MD, [facility] ([phone]), at 07/29/2024 3:21 PM TTE ( 07/30/24) [...] Compared to the overnight study by the metal control coordinator fellow the impella position is stable. [...] EKG. Patient transferred via air ambulance to [facility] on 07/29 for LHC and LOW to [...] Susannah Ornelas MD Internal Medicine, PGY-1 Cardiology, [facility] 08/02/24 12:45 PM CARDIOLOGY STAFF NOTE [...] today). Transfer to floor. Krystal Parker MD, [facility], [facility] Staff Research Associate Molecular Biology quality assurance supervisor body * Gagan Catherine MD - 08/01/2024 11:12 [...] EKG. Patient transferred via air ambulance to [facility] on 07/29 for LHC and LOW to [...] PCP: Alexia Mtz APRN PCP phone number: [phone] Date of Admission: 07/29/2024 ( Hospital Day 3 days ) Attending:Krystal Parker MD ID: Korey Montoya is a 74 y.o. male w/ PMH of hypertension, HLD, and BPH on Hospital Day3 for chief concern of chest pain after being found to have ST elevations on EKG. Patient transferred via air ambulance to [facility] on 07/29 for LHC and LOW to [...] 07/29/24 1621 PHART 7.48* 7.44 7.38 7.37 JHR5LSQ 29* 29* 34* 36 PO2ART 71* 109* 141* 71* CJQ6ELB 20.6 19.4* 19.5* 20.4 VBG (Venous Blood Gas) Recent Labs 07/29/24 1401 PHVEN 7.30* PO2VEN 39 NWT0CKM 20.1* Mixed Venous Sat No results for input(s): A1HGFK4 in the last 168 hours. PA Catheter [...] 07/29/24 1621 PHART 7.48* 7.44 7.38 7.37 AEG5UKK 29* 29* 34* 36 PO2ART 71* 109* 141* 71* PCI1RIY 20.6 19.4* 19.5* 20.4 VBG (Venous Blood Gas) Recent Labs 07/29/24 1401 PHVEN 7.30* PO2VEN 39 DSJ9MNO 20.1* Mixed Venous Sat No results for input(s): X1PVDH2 in the last 168 hours. Microbiology: Microbiology Results (Last 30 days) Procedure Component Value Units Date/Time Blood culture [[id number]] Collected: 07/29/241607 Lab Status: Preliminary result Specimen: Blood, Venous Updated: 07/31/241700 Blood Culture No growth at 48 hours Blood culture [[id number]] Collected: 07/29/241607 Lab Status: Preliminary result Specimen: Blood, Venous Updated: 07/31/241700 Blood Culture No growth at 48 hours Imaging: Results for orders placed or performed during the hospital encounter of 07/29/24 XR Chest One View (Exam End: 07/29/2024 2:30 PM) Result Value WORKSTATION ID [id number] Impression 1. No pulmonary edema. 2. No pleural effusion. 3. No pneumothorax. Thank you for letting us participate in the care of this patient. If you are a health care provider and have any questions regarding this report, please contact the number below. For patients who have questions please contact the health long term care phlebotomist that requested your imaging first. Electronically signed by: Chris Candelaria MD, [facility] ([phone]), at 07/29/2024 3:21 PM TTE ( 07/30/24) [...] Compared to the overnight study by the metal control coordinator fellow the impella position is stable. [...] EKG. Patient transferred via air ambulance to [facility] on 07/29 for LHC and LOW to [...] Susannah Ornelas MD Internal Medicine, PGY-1 Cardiology, [facility] 08/01/24 7:13 AM CARDIOLOGY STAFF NOTE [...] with him; questions answered. Krystal Parker MD, [facility], [facility] Staff Research Associate Molecular Biology quality assurance supervisor body * Krystal Parker MD - 07/31/2024 1:06 [...] ILL WITH THESE DIAGNOSES BEING MANAGED BY [facility] TEAM: # Anterior STEMI, late-presenting # [...] EKG. Patient transferred via air ambulance to [facility] on 07/29 for LHC and LOW to LAD for 100% occlusion. TTE showed apical akinesis and inferior hypokinesis with EF 20%. RHC showed elevated filling pressures. Impella placed and P-level 6 at time of transfer to [facility]. CI initially 1.97, improved to 2.2 After impella. Received about 3 L of fluid during procedural course. Patient initially required norepinephrine 30, epinephrine 10, and vasopressin 0.04 for hemodynamic support, which was weaned upon arrival to [facility] to norepinephrine 20and levo 0.04 N [...] PCP: Alexia Mtz APRN PCP phone number: [phone] Date of Admission: 07/29/2024 ( Hospital Day 2 days ) Attending:Krystal Parker MD ID: Korey Montoya is a 74 y.o. male w/ PMH of hypertension, HLD, and BPH on Hospital Day2 for chief concern of chest pain after being found to have ST elevations on EKG. Patient transferred via air ambulance to [facility] on 07/29 for LHC and LOW to [...] 0057 07/29/24 1621 PHART 7.44 7.38 7.37 WPB5TSL 29* 34* 36 PO2ART 109* 141* 71* QKM0UIH 19.4* 19.5* 20.4 VBG (Venous Blood Gas) Recent Labs 07/29/24 1401 PHVEN 7.30* PO2VEN 39 ZQH2BIQ 20.1* Mixed Venous Sat No results for input(s): Q1RGAC6 in the last 168 hours. PA Catheter [...] 0057 07/29/24 1621 PHART 7.44 7.38 7.37 ADP8TDQ 29* 34* 36 PO2ART 109* 141* 71* HSV1SHO 19.4* 19.5* 20.4 VBG (Venous Blood Gas) Recent Labs 07/29/24 1401 PHVEN 7.30* PO2VEN 39 NPL5TCB 20.1* Mixed Venous Sat No results for input(s): Y9WOCK7 in the last 168 hours. Microbiology: Microbiology Results (Last 30 days) Procedure Component Value Units Date/Time Blood culture [[id number]] Collected: 07/29/241607 Lab Status: Preliminary result Specimen: Blood, Venous Updated: 07/30/241700 Blood Culture No Growth at 18-24 hrs. Blood culture [[id number]] Collected: 07/29/241607 Lab Status: Preliminary result Specimen: Blood, Venous Updated: 07/30/241700 Blood Culture No Growth at 18-24 hrs. Imaging: Results for orders placed or performed during the hospital encounter of 07/29/24 XR Chest One View (Exam End: 07/29/2024 2:30 PM) Result Value WORKSTATION ID [id number] Impression 1. No pulmonary edema. 2. No pleural effusion. 3. No pneumothorax. Thank you for letting us participate in the care of this patient. If you are a health care provider and have any questions regarding this report, please contact the number below. For patients who have questions please contact the health long term care phlebotomist that requested your imaging first. Electronically signed by: Chris Candelaria MD, [facility] ([phone]), at 07/29/2024 3:21 PM TTE ( 07/30/24) [...] Compared to the overnight study by the metal control coordinator fellow the impella position is stable. [...] EKG. Patient transferred via air ambulance to [facility] on 07/29 for LHC and LOW to [...] work to optimize volume status while continuing cjpoffl-qkmcrm-cbebwvgcbs therapies at this time. Obtain comprehensive TTE. [...] EKG. Patient transferred via air ambulance to [facility] on 07/29 for LHC and LOW to LAD for 100% occlusion. TTE showed apical akinesis and inferior hypokinesis with EF 20%. RHC showed elevated filling pressures. Impella placed and P-level 6 at time of transfer to [facility]. CI initially 1.97, improved to 2.2 After impella. Received about 3 L of fluid during procedural course. Patient initially required norepinephrine 30, epinephrine 10, and vasopressin 0.04 for hemodynamic support, which was weaned upon arrival to [facility] to norepinephrine 20and levo 0.04 N [...] PCP: Yoel Artis APRN PCP phone number: [phone] Date of Admission: 07/29/2024 ( Hospital Day 1 day ) Attending:Jay Silverio MD ID: Korey Montoya is a 74 y.o. male w/ PMH of hypertension, HLD, and BPH on Hospital Day1 for chief concern of chest pain after being found to have ST elevations on EKG. Patient transferred via air ambulance to [facility] on 07/29 for LHC and LOW to [...] 0057 07/29/24 1621 PHART 7.44 7.38 7.37 KSP1YGT 29* 34* 36 PO2ART 109* 141* 71* LSV8EDC 19.4* 19.5* 20.4 VBG (Venous Blood Gas) Recent Labs 07/29/24 1401 PHVEN 7.30* PO2VEN 39 DBB8MTW 20.1* Lactate ( Last 12 hours) 1.3 >> 1.2 Mixed Venous Sat No results for input(s): K4SUED3 in the last 168 hours. PA Catheter [...] 0057 07/29/24 1621 PHART 7.44 7.38 7.37 VYM5HWX 29* 34* 36 PO2ART 109* 141* 71* TAQ7SRN 19.4* 19.5* 20.4 VBG (Venous Blood Gas) Recent Labs 07/29/24 1401 PHVEN 7.30* PO2VEN 39 CHQ3KIJ 20.1* Mixed Venous Sat No results for input(s): D4CCJL4 in the last 168 hours. Microbiology: Microbiology Results (Last 30 days) Procedure Component Value Units Date/Time Blood culture [[id number]] Collected: 07/29/24 160 Lab Status: In process Specimen: Blood, Venous Updated: 07/29/24 162 Blood culture [[id number]] Collected: 07/29/241607 Lab Status: In process Specimen: Blood, Venous Updated: 07/29/24 161 Imaging: Results for orders placed or performed during the hospital encounter of 07/29/24 XR Chest One View (Exam End: 07/29/2024 2:30 PM) Result Value WORKSTATION ID [id number] Impression 1. No pulmonary edema. 2. No pleural effusion. 3. No pneumothorax. Thank you for letting us participate in the care of this patient. If you are a health care provider and have any questions regarding this report, please contact the number below. For patients who have questions please contact the health long term care phlebotomist that requested your imaging first. Electronically signed by: Chris Candelaria MD, [facility] ([phone]), at 07/29/2024 3:21 PM Medications Scheduled Meds: [...] EKG. Patient transferred via air ambulance to [facility] on 07/29 for LHC and LOW to [...] EKG. Patient transferred via air ambulance to [facility] on 07/29 for LHC and LOW to [...] EKG. Was transferred via air ambulance to [facility] for further management and [facility] demo nstrated 100% occlusion. No significant RCA, [...] performed by Brandan Mcgovern MD [facility] ENDOSCOPY Significant Family History: Family History Problem [...] mouth. Past Week nitroGLYcerin (NITROLINGUAL) 400 mcg/spray Collins, Non-Aerosol 1 spray to anus for proctalgia [...] guiding catheter and a 3.[address] [facility] [place] [facility] 20 Mhz using Manual pullback. Imaging [...] priority for the procedure was Emergent. The [facility] indication for the procedure was STEMI-Immediate PCI [...] A premounted 3.00 x 22 mm Jeison [place] (LOW) was deployed with a maximum inflation [...] A premounted 3.00 x 08 mm Jeison [place] (LOW) was deployed with a maximum inflation [...] a limited study performed by a fellow metal control coordinator to evaluate for cardiogenic shock with [...] Compared to the overnight study by the metal control coordinator fellow the impella position is stable. [...] EKG. Patient transferred via air ambulance to [facility] on 07/29 for LHC and LOW to [...] PCP: Yoel Artis APRN PCP phone number: [phone] Date of Admission: 07/29/2024 ( Hospital Day 0 days ) Attending:Jay Silverio MD ID: Korey Montoya is a 74 y.o. male w/ PMH of hypertension, HLD, and BPH who presents for chief concern of chest pain after being found to have ST elevations on EKG. Patient transferred via air ambulance to [facility] on 07/29 for LHC and LOW to LAD for 100% occlusion. HPI: Korey Montoya is a 74 y.o. male w/ PMH of hypertension, HLD, and BPH who presents for chief concern of chest pain after being found to have ST elevations on EKG. Patient transferred via air ambulance to [facility] on 07/29 for LHC and LOW to [...] EKG. Was transferred via air ambulance to [facility] for further management and LHC demonstrated 100% [...] performed by Brandan Mcgovern MD [facility] ENDOSCOPY Family History Family History Problem Relation [...] Blood Gas) No results for input(s): PHART, VSM0HZB, PO2ART, OMO1KVH, LACTATEVEN, RHU2TQX, PFRATIOART2 in the last 168 hours. VBG (Venous Blood Gas) Recent Labs 07/29/24 1401 PHVEN 7.30* PO2VEN 39 NXP0IDI 20.1* Mixed Venous Sat No results for input(s): Z2XIIU6 in the last 168 hours. PA Catheter [...] Blood Gas) No results for input(s): PHART, LIX4FUV, PO2ART, UJM0NBY, LACTATEVEN, ONN6LRC, PFRATIOART2 in the last 168 hours. VBG (Venous Blood Gas) Recent Labs 07/29/24 1401 PHVEN 7.30* PO2VEN 39 MYA8PDY 20.1* Mixed Venous Sat No results for input(s): I8KDCD0 in the last 168 hours. Microbiology: Microbiology [...] EKG. Patient transferred via air ambulance to [facility] on 07/29 for C. Found to have 100% occlusion of LAD for which he underwent LOW to LAD.Otherwise no other significant vessel disease. Fahad is currently hemodynamically tenuous but improving upon admission to [facility], requiring hemodynamic support with norepinephrine and vasopressin at time of admission along with mechanical support with Impella device. Reassuringly, he demonstrates decreasing pressor requirements since admission to [facility], with epinephrine completely weaned. He does [...] Bernardo Amos MD Internal Medicine, PGY-3 Cardiology, [facility] 07/29/24 3:14 PM Cardiology Attending Note [...] MD, FACP, FACC Section of Cardiovascular Medicine [facility] Disease Control Inspectorlighting designer [facility] This patient meets or has met [...] to the planned procedure. Hand Hygiene: The egg producer did perform hand hygiene prior to arterial [...] ease. Good wave form. Ivan Hernandez MD Transportation Attendant Associated attestation - Rolando Yeh MD - [...] Fahad was quite active prior to his MS. 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 Given parameters for home exercise. He follows a heart healthy diet and is not overweight. His lipids are wnl. Participation in an outpatient cardiac rehabilitation program at [facility] was discussed. Patient agrees to [...] Payor: [employer]ARP MANAGED MEDICARE / Plan: AARP [facility] MANAGED MEDICARE COMPLETE / Product [...] of Discharge: 08/04/2024 Gaby Wong RN, CM [phone] * Initial Assessments - Char Meza OT - 08/03/2024 10:00 AM EST Occupational Therapy Evaluation Patient profile: Korey Montoya is a 74 y.o. male admitted on 07/29/2024 w/ PMH of hypertension, HLD, and BPH who presents for chief concern of chest pain after being found to have ST elevations onEKG. Patient transferred via air ambulance to [facility] on 07/29 for LHC and LOW to LAD for 100% occlusion. Past Medical History: Diagnosis Date ADHD HLD (hyperlipidemia) HTN (hypertension) Tremor Past Surgical History: Procedure Laterality Date HAND SURGERY PRO COLONOSCOPY, REMV LESN, SNARE N/A 08/30/2023 COLONOSCOPY, POLYPECTOMY, REMOVAL LESION BY SNARE (WRVU 4.57) performed by Brandan Mcgovern MD [facility] ENDOSCOPY Social History: Patient lives with his . Home Setup: 2 NAOMI to a 1 level home. DME: none Baseline ADL/Mobility: Independent with ADLs and IADLs. Enjoys walking. able assist as needed. Precautions/Special Considerations: Full code. Risk for falls. Subjective: I have access to an [employer] weight gym. (Educated to wait for [...] evaluation only Total Minutes, Occupational Therapy: 14 ([id number] (evaluation)) 2017 OT Evaluation Code Rationale: Diagnosis [...] and measurable assessment of functional outcome. Pager: [phone] Char Meza OT 08/03/2024 Occupational Therapy Rehabilitation [...] Procedure Note: Patient Name: Korey Montoya : [id number] MR#: [id number] Case Date: 07/31/2024 Mathematics Department Chair: Surgeons and Role: * Maldonado Luis MD - Primary * Quinten Charles PA - Physician Plexiglas Former Preoperative diagnosis: shock, impella Postoperative diagnosis: * same * Procedure(s) performed: Impella removal form right FAMILY SPECIALIST Access: Right FAMILY SPECIALIST A time-out was conducted prior to the [...] 180 days) Any patient receiving care in [place] must abide by ID law. The hierarchy [...] (i) The agent with financial power of student services representative or a conservator appointed in accordance with [...] homeless or living in a assisted (including now)?: No In the past 12 months has the [employer] gas, oil, or water [employer] threatened to shut off services in your [...] Mailing Address: [address] [place] [address] Physical Address: [address] [place], [place] Social & Family Supports: All names [...] Addiction likely Health/Prescription Coverage: Primary Insurance: [facility] [employer] MEDICARE Payor: 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 CXR and EKG completed. [...] Procedure Note: Patient Name: Korey Montoya : [id number] MR#: [id number] Case Date: 07/29/2024 Mathematics Department Chair: Surgeons and Role: * Vahe Marvin MD - Primary * Susannah Watts PA - Physician Plexiglas Former Preoperative diagnosis: STEMI Postoperative diagnosis: * STEMI, LAD Artery * * Cardiogenic Shock * Procedure(s) performed: [facility] Coronary angiogram Stent insertion coronary IVUS coronary Venous line insert [facility] Haskins Colette Catheter Vascular closure device Ventricular assist [...] x 22 mm to 14 deonna JEISON [place] with LIZ 3 flow. Residual distal disease at distal stent, overlapping distal stent was inserted with 3.0 x 8 mm JEISON [place]. Systolic's in the 80's sustained. Patient re [...] AM EST Office Visit Cardiology at [address] [phone] Mushtaq Murphy, MEAT GRADING MACHINE OPERATOR Scheduled Orders Name Type Priority Associated [...] CBC (with Diff) (08/04/2024 6:08 AM EST) [facility] White Blood Cell 7.27 4.00 - 9.50 x10(3)/mc L 08/04/2024 6:39 AM [facility] Red Blood Cell 4.28(L) 4.58 - 5.54 x10(6)/mc L 08/04/2024 6:39 AM [facility] Hemoglobin 11.6(L) 13.7 - 16.5 g/dL 08/04/2024 6:39 AM [facility] Hematocrit 34.8(L) 40.5 - 48.5 % 08/04/2024 6:39 AM [facility] Mean Cell Volume 81.3(L) 82.9 - 93.1 fL 08/04/2024 6:39 AM [facility] Mean Cell Hemoglobin 27.1(L) 27.5 - 32.1 pg 08/04/2024 6:39 AM [facility] Mean Cell Hemoglobin Concentration 33.3 32.0 - 35.7 g/dL 08/04/2024 6:39 AM [facility] Platelet 178 145 - 357 x10(3)/mc L 08/04/2024 6:39 AM [facility] Mean Platelet Volume 10.6 7.6 - 12.9 fL 08/04/2024 6:39 AM [facility] RDW Standard Deviation 42.0 36.0 - 45.0 fL 08/04/2024 6:39 AM [facility] RDW coefficient of variation 14.3(H) 11.4 - 13.8 % 08/04/2024 6:39 AM [facility] NRBC% auto 0.0 % 08/04/2024 6:39 AM [facility] NRBC Absolute <0.01 <0.01 x10(3)/mc L 08/04/2024 6:39 AM [facility] Neutrophil % 72.1 % 08/04/2024 6:39 AM [facility] Neutrophil Absolute (ANC) - Automated 5.24 1.70 - 6.10 x10(3)/mc L 08/04/2024 6:39 AM [facility] Lymph % 16.8 % 08/04/2024 6:39 AM [facility] Lymph Absolute 1.22 0.90 - 3.20 x10(3)/mc L 08/04/2024 6:39 AM [facility] Monocyte % 8.5 % 08/04/2024 6:39 AM [facility] Monocyte Absolute 0.62 0.30 - 0.90 x10(3)/mc L 08/04/2024 6:39 AM [facility] Eos % 1.9 % 08/04/2024 6:39 AM [facility] Eos Absolute 0.14 0.00 - 0.40 x10(3)/mc L 08/04/2024 6:39 AM [facility] Basophil % 0.4 % 08/04/2024 6:39 AM [facility] Baso Absolute <0.04 0.00 - 0.10 x10(3)/mc L 08/04/2024 6:39 AM [facility] Immature Gran % 0.3 % 6:39 AM [facility] Immature Gran Absolute <0.04 0.00 - 0.04 x10(3)/mc L 08/04/2024 6:39 AM [facility] Blood VENOUS BLOOD SPECIMEN / Unknown Venipuncture / Unknown 08/04/2024 6:08 AM EST 08/04/2024 6:19 AM EST Bridgette Stauffer MD HEMATOLOGY ORDERABLE S [facility] [place] [address] * Magnesium (08/04/2024 6:08 AM EST) Magnesium 0.85 0.69 - 1.07 mMol/L 08/04/2024 7:07 AM [facility] Blood VENOUS BLOOD SPECIMEN / Unknown Venipuncture / Unknown 08/04/2024 6:08 AM EST 08/04/2024 6:19 AM EST Bridgette Stauffer MD CHEMISTRY ORDERABLES [facility] [place] [address] * Basic Metabolic Panel (08/04/2024 6:08 AM EST) Glucose 93 65 - 199 mg/dL 08/04/2024 7:07 AM [facility] Comment:Glucose Concentratio n >=200 mg/dL plus symptoms is consistent with Diabetes Mellitus. Blood Urea Nitrogen 14 10 - 20 mg/dL 08/04/2024 7:07 AM [facility] Creatinine 1.07 0.80 - 1.50 mg/dL 08/04/2024 7:07 AM EST [facility] Sodium 138 135 - 145 mMol/L 08/04/2024 7:07 AM [facility] Potassium 4.3 3.5 - 5.0 mMol/L 08/04/2024 7:07 AM [facility] Chloride 107 98 - 107 mMol/L 08/04/2024 7:07 AM [facility] Carbon Dioxide 23 22 - 31 mMol/L 08/04/2024 7:07 AM [facility] Anion Gap 8 5 - 15 mMol/L 08/04/2024 7:07 AM [facility] Calcium 8.5 8.5 - 10.5 mg/dL 08/04/2024 7:07 AM [facility] Est Glomerular Filtration Rate - Male 74 mL/min/1. 73 m?? 08/04/2024 7:07 AM [facility] Comment: This patient's estimated GFR [...] Stauffer MD CHEMISTRY ORDERABLES [facility] [place] [address] * (ABNORMAL) CBC (with Diff) (08/03/2024 5:16 AM EST) White Blood Cell 7.85 4.00 - 9.50 x10(3)/mc L 08/03/2024 5:29 AM [facility] Red Blood Cell 4.43(L) 4.58 - 5.54 x10(6)/mc L 08/03/2024 5:29 AM [facility] Hemoglobin 11.8(L) 13.7 - 16.5 g/dL 08/03/2024 5:29 AM [facility] Hematocrit 35.9(L) 40.5 - 48.5 % 08/03/2024 5:29 AM [facility] Mean Cell Volume 81.0(L) 82.9 - 93.1 fL 08/03/2024 5:29 AM [facility] Mean Cell Hemoglobin 26.6(L) 27.5 - 32.1 pg 08/03/2024 5:29 AM [facility] Mean Cell Hemoglobin Concentration 32.9 32.0 - 35.7 g/dL 08/03/2024 5:29 AM [facility] Platelet 142(L) 145 - 357 x10(3)/mc L 08/03/2024 5:29 AM [facility] Mean Platelet Volume 10.5 7.6 - 12.9 fL 08/03/2024 5:29 AM [facility] RDW Standard Deviation 42.5 36.0 - 45.0 fL 08/03/2024 5:29 AM [facility] RDW coefficient of variation 14.2(H) 11.4 - 13.8 % 08/03/2024 5:29 AM [facility] NRBC% auto 0.0 % 08/03/2024 5:29 AM [facility] NRBC Absolute <0.01 <0.01 x10(3)/mc L 08/03/2024 5:29 AM [facility] Neutrophil % 75.2 % 08/03/2024 5:29 AM [facility] Neutrophil Absolute (ANC) - Automated 5.91 1.70 - 6.10 x10(3)/mc L 08/03/2024 5:29 AM [facility] Lymph % 13.4 % 08/03/2024 5:29 AM [facility] Lymph Absolute 1.05 0.90 - 3.20 x10(3)/mc L 08/03/2024 5:29 AM [facility] Monocyte % 9.0 % 08/03/2024 5:29 AM [facility] Monocyte Absolute 0.71 0.30 - 0.90 x10(3)/mc L 08/03/2024 5:29 AM [facility] Eos % 1.7 % 08/03/2024 5:29 AM [facility] Eos Absolute 0.13 0.00 - 0.40 x10(3)/mc L 08/03/2024 5:29 AM [facility] Basophil % 0.4 % 08/03/2024 5:29 AM [facility] Baso Absolute <0.04 0.00 - 0.10 x10(3)/mc L 08/03/2024 5:29 AM [facility] Immature Gran % 0.3 % 5:29 AM [facility] Immature Gran Absolute <0.04 0.00 - 0.04 x10(3)/mc L 08/03/2024 5:29 AM [facility] Blood VENOUS BLOOD SPECIMEN / Unknown Venipuncture / Unknown 08/03/2024 5:16 AM EST 08/03/2024 5:23 AM EST Bridgette Stauffer MD HEMATOLOGY ORDERABLE S [facility] [place] [address] * Magnesium (08/03/2024 5:16 AM EST) Magnesium 0.89 0.69 - 1.07 mMol/L 08/03/2024 5:56 AM [facility] Blood VENOUS BLOOD SPECIMEN / Unknown Venipuncture / Unknown 08/03/2024 5:16 AM EST 08/03/2024 5:23 AM EST Bridgette Stauffer MD CHEMISTRY ORDERABLES [facility] [place] [address] * (ABNORMAL) Basic Metabolic Panel (08/03/2024 5:16 AM EST) Glucose 98 65 - 199 mg/dL 08/03/2024 5:56 AM [facility] Comment:Glucose Concentratio n >=200 mg/dL plus symptoms is consistent with Diabetes Mellitus. Blood Urea Nitrogen 16 10 - 20 mg/dL 08/03/2024 5:56 AM [facility] Creatinine 0.85 0.80 - 1.50 mg/dL 08/03/2024 5:56 AM EST [facility] Sodium 137 135 - 145 mMol/L 08/03/2024 5:56 AM [facility] Potassium 4.5 3.5 - 5.0 mMol/L 08/03/2024 5:56 AM [facility] Chloride 106 98 - 107 mMol/L 08/03/2024 5:56 AM [facility] Carbon Dioxide 21(L) 22 - 31 mMol/L 08/03/2024 5:56 AM [facility] Anion Gap 10 5 - 15 mMol/L 08/03/2024 5:56 AM [facility] Calcium 8.3(L) 8.5 - 10.5 mg/dL 08/03/2024 5:56 AM [facility] Est Glomerular Filtration Rate - Male 92 mL/min/1. 73 m?? 08/03/2024 5:56 AM [facility] Comment: This patient's estimated GFR [...] Stauffer MD CHEMISTRY ORDERABLES Performing Organization Address [facility]/ZIP Co de Phone Number [facility] [place] [address] * POC, GLUCOSE (08/02/2024 7:47 AM EST) [...] Address [facility] Co de Phone Number [facility] [place] [address] * (ABNORMAL) CBC (with Diff) (08/02/2024 4:20 AM EST) White Blood Cell 8.51 4.00 - 9.50 x10(3)/mc L 08/02/2024 4:50 AM EST [facility] Red Blood Cell 4.41(L) 4.58 - 5.54 x10(6)/mc L 08/02/2024 4:50 AM EST [facility] Hemoglobin 12.2(L) 13.7 - 16.5 g/dL 08/02/2024 4:50 AM EST [facility] Hematocrit 35.8(L) 40.5 - 48.5 % 08/02/2024 4:50 AM [facility] Mean Cell Volume 81.2(L) 82.9 - 93.1 fL 08/02/2024 4:50 AM [facility] Mean Cell Hemoglobin 27.7 27.5 - 32.1 pg 08/02/2024 4:50 AM [facility] Mean Cell Hemoglobin Concentration 34.1 32.0 - 35.7 g/dL 08/02/2024 4:50 AM [facility] Platelet 111(L) 145 - 357 x10(3)/mc L 08/02/2024 4:50 AM [facility] Mean Platelet Volume 11.1 7.6 - 12.9 fL 08/02/2024 4:50 AM [facility] RDW Standard Deviation 41.9 36.0 - 45.0 fL 08/02/2024 4:50 AM [facility] RDW coefficient of variation 14.1(H) 11.4 - 13.8 % 08/02/2024 4:50 AM [facility] NRBC% auto 0.0 % 08/02/2024 4:50 AM [facility] NRBC Absolute <0.01 <0.01 x10(3)/mc L 08/02/2024 4:50 AM [facility] Neutrophil % 77.7 % 08/02/2024 4:50 AM [facility] Neutrophil Absolute (ANC) - Automated 6.62(H) 1.70 - 6.10 x10(3)/mc L 08/02/2024 4:50 AM [facility] Lymph % 11.9 % 08/02/2024 4:50 AM [facility] Lymph Absolute 1.01 0.90 - 3.20 x10(3)/mc L 08/02/2024 4:50 AM [facility] Monocyte % 8.2 % 08/02/2024 4:50 AM [facility] Monocyte Absolute 0.70 0.30 - 0.90 x10(3)/mc L 08/02/2024 4:50 AM [facility] Eos % 1.4 % 08/02/2024 4:50 AM [facility] Eos Absolute 0.12 0.00 - 0.40 x10(3)/mc L 08/02/2024 4:50 AM [facility] Basophil % 0.4 % 08/02/2024 4:50 AM [facility] Baso Absolute <0.04 0.00 - 0.10 x10(3)/mc L 08/02/2024 4:50 AM [facility] Immature Gran % 0.4 % 4:50 AM [facility] Immature Gran Absolute <0.04 0.00 - 0.04 x10(3)/mc L 08/02/2024 4:50 AM [facility] Blood VENOUS BLOOD SPECIMEN / Unknown Venipuncture / Unknown 08/02/2024 4:20 AM EST 08/02/2024 4:37 AM EST Bridgette Stauffer MD HEMATOLOGY ORDERABLE S [facility] [place] [address] * Magnesium (08/02/2024 4:20 AM EST) Magnesium 0.79 0.69 - 1.07 mMol/L 08/02/2024 5:06 AM [facility] Blood VENOUS BLOOD SPECIMEN / Unknown Venipuncture / Unknown 08/02/2024 4:20 AM EST 08/02/2024 4:37 AM EST Bridgette Stauffer MD CHEMISTRY ORDERABLES [facility] [place] [address] * (ABNORMAL) Basic Metabolic Panel (08/02/2024 4:20 AM EST) Glucose 110 65 - 199 mg/dL 08/02/2024 5:06 AM [facility] Comment:Glucose Concentratio n >=200 mg/dL plus symptoms is consistent with Diabetes Mellitus. Blood Urea Nitrogen 12 10 - 20 mg/dL 08/02/2024 5:06 AM [facility] Creatinine 0.90 0.80 - 1.50 mg/dL 08/02/2024 5:06 AM [facility] Sodium 139 135 - 145 mMol/L 08/02/2024 5:06 AM [facility] Potassium 4.0 3.5 - 5.0 mMol/L 08/02/2024 5:06 AM [facility] Chloride 108(H) 98 - 107 mMol/L 08/02/2024 5:06 AM [facility] Carbon Dioxide 23 22 - 31 mMol/L 08/02/2024 5:06 AM [facility] Anion Gap 8 5 - 15 mMol/L 08/02/2024 5:06 AM [facility] Calcium 8.1(L) 8.5 - 10.5 mg/dL 08/02/2024 5:06 AM [facility] Est Glomerular Filtration Rate - Male 91 mL/min/1. 73 m?? 08/02/2024 5:06 AM [facility] Comment: This patient's estimated GFR [...] Stauffer MD CHEMISTRY ORDERABLES Performing Organization Address [facility] Co de Phone Number [facility] [place] [address] * Potassium (08/01/2024 8:39 PM EST) Potassium 4.0 3.5 - 5.0 mMol/L 08/01/2024 9:21 PM EST [facility] Blood VENOUS BLOOD SPECIMEN / Unknown Venipuncture / Unknown 08/01/2024 8:39 PM EST 08/01/2024 8:51 PM EST Jay Silverio MD CHEMISTRY ORDERABL ES Performing Organization Address [facility] Phone Number [facility] [place] [address] * POC, GLUCOSE (08/01/2024 8:35 PM EST) [...] Address [facility] Co de Phone Number [facility] [place] [address] * POC, GLUCOSE (08/01/2024 4:55 PM EST) Glucometer, POC 99 65 - 199 mg/dL 08/01/2024 4:56 PM EST [facility] Comment:Supplemental ranges: <140 mg/dL before meals <180 mg/dL all other times of the day. Blood CAPILLARY BLOOD / Unknown 08/01/2024 4:55 PM EST 08/01/2024 4:56 PM EST Krystal Parker MD POINT OF CARE TEST O JOSH Performing Organization Address [facility] Co de Phone Number [facility] [place] [address] * POC, GLUCOSE (08/01/2024 12:42 PM EST) Glucometer, POC 130 65 - 199 mg/dL 08/01/2024 12:43 PM EST [facility] Comment:Supplemental ranges: <140 mg/dL before meals <180 mg/dL all other times of the day. Blood CAPILLARY BLOOD / Unknown 08/01/2024 12:42 PM EST 08/01/2024 12:43 PM EST Krystal Parker MD POINT OF CARE TEST O JOSH Performing Organization Address [facility] Co de Phone Number [facility] [place] [address] * (ABNORMAL) Cooximetry, POC (08/01/2024 10:45 AM EST) pO2, Coox 32 mmHg 08/01/2024 10:48 AM [facility] Hemoglobin, Coox 12.9(L) 13.7 - 16.5 g/dL 08/01/2024 10:48 AM EST [facility] Oxyhemoglobin, Coox 66.7 % 08/01/2024 10:48 AM [facility] Carboxyhemoglo bin, Coox 1.1 % 08/01/2024 10:48 AM [facility] Comment: Nonsmokers: 0.5-1.5% COHB ?? Smokers: Variable ??but usually less than 10% ?? Toxic: 20-30% COHB ?? Lethal: Greater than 60% COHB Methemoglobin, Coox 0.3 <=1.5 % 08/01/2024 10:48 AM EST [facility] Blood (Mixed Venous) 08/01/2024 10:45 AM EST 08/01/2024 10:48 AM EST Krystal Parker MD POINT OF CARE TEST O RDERABLES Performing Organization Address [facility]/ZIP Co de Phone Number [facility] [place] [address] * Potassium (08/01/2024 8:20 AM EST) Potassium 4.0 3.5 - 5.0 mMol/L 08/01/2024 10:17 AM EST [facility] Blood ARTERIAL BLOOD / Unknown Venipuncture / Unknown 08/01/2024 8:20 AM EST 08/01/2024 8:30 AM EST Jay Silverio MD CHEMISTRY ORDERABL ES Performing Organization Address [facility] Co de Phone Number [facility] [place] [address] * POC, GLUCOSE (08/01/2024 7:44 AM EST) [...] Address [facility]/ZIP Co de Phone Number [facility] [place] [address] * (ABNORMAL) CBC (with Diff) (08/01/2024 4:18 AM EST) White Blood Cell 8.51 4.00 - 9.50 x10(3)/mc L 08/01/2024 4:53 AM EST [facility] Red Blood Cell 4.12(L) 4.58 - 5.54 x10(6)/mc L 08/01/2024 4:53 AM [facility] Hemoglobin 11.2(L) 13.7 - 16.5 g/dL 08/01/2024 4:53 AM [facility] Hematocrit 33.8(L) 40.5 - 48.5 % 08/01/2024 4:53 AM [facility] Mean Cell Volume 82.0(L) 82.9 - 93.1 fL 08/01/2024 4:53 AM [facility] Mean Cell Hemoglobin 27.2(L) 27.5 - 32.1 pg 08/01/2024 4:53 AM [facility] Mean Cell Hemoglobin Concentration 33.1 32.0 - 35.7 g/dL 08/01/2024 4:53 AM [facility] Platelet 94(L) 145 - 357 x10(3)/mc L 08/01/2024 4:53 AM [facility] Mean Platelet Volume 10.9 7.6 - 12.9 fL 08/01/2024 4:53 AM [facility] RDW Standard Deviation 44.2 36.0 - 45.0 fL 08/01/2024 4:53 AM [facility] RDW coefficient of variation 14.7(H) 11.4 - 13.8 % 08/01/2024 4:53 AM [facility] NRBC% auto 0.0 % 08/01/2024 4:53 AM [facility] NRBC Absolute <0.01 <0.01 x10(3)/mc L 08/01/2024 4:53 AM [facility] Neutrophil % 82.7 % 08/01/2024 4:53 AM [facility] Neutrophil Absolute (ANC) - Automated 7.04(H) 1.70 - 6.10 x10(3)/mc L 08/01/2024 4:53 AM [facility] Lymph % 8.6 % 08/01/2024 4:53 AM [facility] Lymph Absolute 0.73(L) 0.90 - 3.20 x10(3)/mc L 08/01/2024 4:53 AM [facility] Monocyte % 7.6 % 08/01/2024 4:53 AM [facility] Monocyte Absolute 0.65 0.30 - 0.90 x10(3)/mc L 08/01/2024 4:53 AM [facility] Eos % 0.5 % 08/01/2024 4:53 AM [facility] Eos Absolute 0.04 0.00 - 0.40 x10(3)/mc L 08/01/2024 4:53 AM [facility] Basophil % 0.2 % 08/01/2024 4:53 AM [facility] Baso Absolute <0.04 0.00 - 0.10 x10(3)/mc L 08/01/2024 4:53 AM [facility] Immature Gran % 0.4 % 4:53 AM [facility] Immature Gran Absolute <0.04 0.00 - 0.04 x10(3)/mc L 08/01/2024 4:53 AM [facility] Blood VENOUS BLOOD SPECIMEN / Unknown Venipuncture / Unknown 08/01/2024 4:18 AM EST 08/01/2024 4:29 AM EST Bridgette Stauffer MD HEMATOLOGY ORDERABLE S [facility] [place] [address] * Magnesium (08/01/2024 4:18 AM EST) Magnesium 0.74 0.69 - 1.07 mMol/L 08/01/2024 5:00 AM [facility] Blood VENOUS BLOOD SPECIMEN / Unknown Venipuncture / Unknown 08/01/2024 4:18 AM EST 08/01/2024 4:29 AM EST Bridgette Stauffer MD CHEMISTRY ORDERABLES [facility] [place] [address] * (ABNORMAL) Basic Metabolic Panel (08/01/2024 4:18 AM EST) Glucose 107 65 - 199 mg/dL 08/01/2024 5:00 AM [facility] Comment:Glucose Concentratio n >=200 mg/dL plus symptoms is consistent with Diabetes Mellitus. Blood Urea Nitrogen 8(L) 10 - 20 mg/dL 08/01/2024 5:00 AM [facility] Creatinine 0.82 0.80 - 1.50 mg/dL 08/01/2024 5:00 AM [facility] Sodium 137 135 - 145 mMol/L 08/01/2024 5:00 AM [facility] Potassium 3.9 3.5 - 5.0 mMol/L 08/01/2024 5:00 AM [facility] Chloride 108(H) 98 - 107 mMol/L 08/01/2024 5:00 AM [facility] Carbon Dioxide 21(L) 22 - 31 mMol/L 08/01/2024 5:00 AM [facility] Anion Gap 8 5 - 15 mMol/L 08/01/2024 5:00 AM [facility] Calcium 7.7(L) 8.5 - 10.5 mg/dL 08/01/2024 5:00 AM [facility] Est Glomerular Filtration Rate - Male 93 mL/min/1. 73 m?? 08/01/2024 5:00 AM [facility] Comment: This patient's estimated GFR [...] Stauffer MD CHEMISTRY ORDERABLES Performing Organization Address [facility] [place]/[facility] Co de Phone Number [facility] [place] [address] * POC, GLUCOSE (07/31/2024 8:41 PM EST) [facility] Signature Glucometer, POC 73 65 - 199 mg/dL 07/31/2024 8:41 PM EST [facility] Comment:Supplemental ranges: <140 mg/dL before meals <180 mg/dL all other times of the day. Blood CAPILLARY BLOOD / Unknown 07/31/2024 8:41 PM EST 07/31/2024 8:41 PM EST rKystal Parker MD POINT OF CARE TEST O RDERABLES Performing Organization Address [facility] [place]/[facility] Co de Phone Number [facility] [place] [address] * CARDIAC CATHETERIZATION (07/31/2024 5:53 PM EST) Anatomical Region Laterality Modality Other Narrative 08/01/2024 12:37 PM EST ?[facility] ? Cardiac Catheterization/Intervention Report ? Patient Name: Korey Montoya. ? Procedure Date: 07/31/2024 ? A #: [id number] ? Primary Physician: Janelle, Maldonado T ? Case #: [id number] ? File Name: [id number] ? Catheterization Order Number: [id number] ? [facility] ? Final Report [place], [place] ? Patient Name: ? Korey P. Montoya ?ID#: ?[id number] ? : ?1950 ? Procedure Date: ? July 31, 2024 ?Case #: ? [id number] ? Room: ? 1 ? Case Physician: [...] ? Comments: ?Impella removed from the right FAMILY SPECIALIST with deployment of Perclose and ?Angioseal. ??Good [...] Maldonado Luis MD - 08/01/2024 [facility] Cardiac Catheterization/Intervention Report Patient Name: Korey MontoyaToby Procedure Date: 07/31/2024 A #: [id number] Primary Physician: Maldonado Luis Case #: [id number] File Name: [id number] Catheterization Order Number: [id number] [facility] FinalReport [place], [place] Patient Name: Korey Montoya ID#:[id number] :1950 Procedure Date: July 31, 2024 Case [...] was designated as ASA Class IV. The [facility] clinical frailtyscale is 4: [...] procedures. Comments: Impella removed from the right FAMILY SPECIALIST with deployment of Perclose and Angioseal. Good hemostasis. The attending physician was present for the entire procedure. Dr. Maldonado Luis M.D. was present during the moderate sedation intraservice time as documented by the sedation nurse. Case time =00:35. Dr. Maldonado Luis M.D. performed the vascular closure device and ventricular assist device removal. Maldonado Lusi M.D. Electronically Signed by: Maldonado Luis M.D. Report Finalized: 08/01/2024 12:31 Maldonado Luis MD CARDIAC CATH ORDERAB LES * POC, GLUCOSE (07/31/2024 11:04 AM EST) [facility] Glucometer, POC 82 65 - 199 mg/dL 07/31/2024 11:04 AM EST [facility] Comment:Supplemental ranges: <140 mg/dL before meals <180 mg/dL all other times of the day. Blood CAPILLARY BLOOD / Unknown 07/31/2024 11:04 AM EST 07/31/2024 11:04 AM EST Krystal Parker MD POINT OF CARE TEST O RDERABLES [facility] [place] [address] * (ABNORMAL) Blood Gas, Arterial POC (07/31/2024 8:29 AM EST) [facility] pH, Arterial 7.48(H) 7.35 - 7.45 07/31/2024 8:30 AM EST [facility] PCO2, Arterial 29(L) 35 - 45 mmHg 07/31/2024 8:30 AM EST [facility] PO2, Arterial 71(L) 85 - 104 mmHg 07/31/2024 8:30 AM EST [facility] Bicarbonate, Arterial 20.6 20.0 - 26.0 mmol/L 07/31/2024 8:30 AM EST [facility] Base Excess, Arterial -3.0 -3.0 - 3.0 mmol/L 07/31/2024 8:30 AM [facility] Hemoglobin, Arterial 12.3(L) 13.7 - 16.5 g/dL 07/31/2024 8:30 AM [facility] Oxyhemoglobin, Arterial 94.4 94.0 - 97.0 % 07/31/2024 8:30 AM [facility] Carboxyhemoglobin , Arterial 0.7 % 07/31/2024 8:30 AM [facility] Comment: Nonsmokers: 0.5-1.5% COHB ?? Smokers: Variable ??but usually less than 10% ?? Toxic: 20-30% COHB ?? Lethal: Greater than 60% COHB Methemoglobin, Arterial 0.3 <=1.5 % 07/31/2024 8:30 AM [facility] Sodium, Arterial 138 135 - 145 mmol/L 07/31/2024 8:30 AM [facility] Potassium, Arterial 3.5 3.5 - 5.0 mmol/L 07/31/2024 8:30 AM [facility] Chloride, Arterial 109(H) 98 - 107 mmol/L 07/31/2024 8:30 AM [facility] Lactate, Arterial 0.8 0.5 - 2.2 mmol/L 07/31/2024 8:30 AM [facility] Fraction of Inspired Oxygen 21 % 07/31/2024 8:30 AM [facility] PF Ratio 338 Ratio 07/31/2024 8:30 AM [facility] Comment:PF ratio calculated using the non-temperature corrected pO2 result. IONIZED CALCIUM, ARTERIAL 1.08(L) 1.15 - 1.33 mmol/L 07/31/2024 8:30 AM [facility] Glucose, Arterial 86 65 - 199 mg/dL 07/31/2024 8:30 AM [facility] Comment:Glucose Concentratio n >=200 mg/dL plus symptoms is consistent with Diabetes Mellitus. Blood ARTERIAL BLOOD / Unknown 07/31/2024 8:29 AM EST 07/31/2024 8:30 AM EST Krystal Parker MD POINT OF CARE TEST O JOSH Performing Organization Address City/[facility]/ZIP Co de Phone Number [facility] [place] [address] * POC, GLUCOSE (07/31/2024 7:47 AM EST) Pathologist [facility] Glucometer, POC 82 65 - 199 mg/dL 07/31/2024 7:53 AM EST [facility] Comment:Supplemental ranges: <140 mg/dL before meals <180 mg/dL all other times of the day. Blood CAPILLARY BLOOD / Unknown 07/31/2024 7:47 AM EST 07/31/2024 7:53 AM EST Krystal Parker MD POINT OF CARE TEST O JOSH Performing Organization Address [facility] [place]/[facility] Co de Phone Number [facility] [place] [address] * (ABNORMAL) CBC (with Diff) (07/31/2024 1:08 AM EST) [facility] White Blood Cell 10.25(H) 4.00 - 9.50 x10(3)/mc L 07/31/2024 1:28 AM [facility] Red Blood Cell 4.13(L) 4.58 - 5.54 x10(6)/mc L 07/31/2024 1:28 AM [facility] Hemoglobin 11.2(L) 13.7 - 16.5 g/dL 07/31/2024 1:28 AM [facility] Hematocrit 33.9(L) 40.5 - 48.5 % 07/31/2024 1:28 AM [facility] Mean Cell Volume 82.1(L) 82.9 - 93.1 fL 07/31/2024 1:28 AM [facility] Mean Cell Hemoglobin 27.1(L) 27.5 - 32.1 pg 07/31/2024 1:28 AM [facility] Mean Cell Hemoglobin Concentration 33.0 32.0 - 35.7 g/dL 07/31/2024 1:28 AM [facility] Platelet 109(L) 145 - 357 x10(3)/mc L 07/31/2024 1:28 AM [facility] Mean Platelet Volume 10.4 7.6 - 12.9 fL 07/31/2024 1:28 AM [facility] RDW Standard Deviation 45.1(H) 36.0 - 45.0 fL 07/31/2024 1:28 AM [facility] RDW coefficient of variation 15.1(H) 11.4 - 13.8 % 07/31/2024 1:28 AM [facility] NRBC% auto 0.0 % 07/31/2024 1:28 AM [facility] NRBC Absolute <0.01 <0.01 x10(3)/mc L 07/31/2024 1:28 AM [facility] Neutrophil % 79.7 % 07/31/2024 1:28 AM [facility] Neutrophil Absolute (ANC) - Automated 8.17(H) 1.70 - 6.10 x10(3)/mc L 07/31/2024 1:28 AM [facility] Lymph % 12.8 % 07/31/2024 1:28 AM [facility] Lymph Absolute 1.31 0.90 - 3.20 x10(3)/mc L 07/31/2024 1:28 AM [facility] Monocyte % 6.9 % 07/31/2024 1:28 AM [facility] Monocyte Absolute 0.71 0.30 - 0.90 x10(3)/mc L 07/31/2024 1:28 AM [facility] Eos % 0.1 % 07/31/2024 1:28 AM [facility] Eos Absolute <0.04 0.00 - 0.40 x10(3)/mc L 07/31/2024 1:28 AM EST [facility] Basophil % 0.3 % 07/31/2024 1:28 AM EST [facility] Baso Absolute <0.04 0.00 - 0.10 x10(3)/mc L 07/31/2024 1:28 AM EST [facility] Immature Gran % 0.2 % 1:28 AM EST [facility] Immature Gran Absolute <0.04 0.00 - 0.04 x10(3)/mc L 07/31/2024 1:28 AM EST [facility] Blood VENOUS BLOOD SPECIMEN / Unknown Venipuncture / Unknown 07/31/2024 1:08 AM EST 07/31/2024 1:18 AM EST Bridgette Stauffer MD HEMATOLOGY ORDERABLE S Performing Organization Address City/[facility]/ZIP Co de Phone Number [facility] [place] [address] * Magnesium (07/31/2024 1:08 AM EST) Magnesium 0.89 0.69 - 1.07 mMol/L 07/31/2024 1:46 AM EST [facility] Blood VENOUS BLOOD SPECIMEN / Unknown Venipuncture / Unknown 07/31/2024 1:08 AM EST 07/31/2024 1:18 AM EST Bridgette Stauffer MD CHEMISTRY ORDERABLES [facility] [place] [address] * (ABNORMAL) Basic Metabolic Panel (07/31/2024 1:08 AM EST) Glucose 97 65 - 199 mg/dL 07/31/2024 1:46 AM EST [facility] Comment:Glucose Concentratio n >=200 mg/dL plus symptoms is consistent with Diabetes Mellitus. Blood Urea Nitrogen 11 10 - 20 mg/dL 07/31/2024 1:46 AM [facility] Creatinine 0.96 0.80 - 1.50 mg/dL 07/31/2024 1:46 AM EST [facility] Sodium 140 135 - 145 mMol/L 07/31/2024 1:46 AM [facility] Potassium 4.1 3.5 - 5.0 mMol/L 07/31/2024 1:46 AM EST [facility] Chloride 110(H) 98 - 107 mMol/L 07/31/2024 1:46 AM [facility] Carbon Dioxide 24 22 - 31 mMol/L 07/31/2024 1:46 AM [facility] Anion Gap 6 5 - 15 mMol/L 07/31/2024 1:46 AM [facility] Calcium 7.7(L) 8.5 - 10.5 mg/dL 07/31/2024 1:46 AM [facility] Est Glomerular Filtration Rate - Male 84 mL/min/1. 73 m?? 07/31/2024 1:46 AM [facility] Comment: This patient's estimated GFR [...] Stauffer MD CHEMISTRY ORDERABLES [facility] [place] [address] * (ABNORMAL) Hepatic Function Panel (07/31/2024 1:08 AM EST) Albumin 3.1(L) 3.2 - 5.2 g/dL 07/31/2024 1:46 AM [facility] Aspartate Aminotransferase 192(H) <=39 unit/L 07/31/2024 1:46 AM [facility] Alanine Aminotransferase 59(H) 0 - 55 unit/L 07/31/2024 1:46 AM [facility] Alkaline Phosphatase 46 40 - 130 unit/L 07/31/2024 1:46 AM [facility] Bilirubin, Total 0.4 <=1.3 mg/dL 07/31/2024 1:46 AM [facility] Bilirubin, Direct <0.2 0.0 - 0.3 mg/dL 07/31/2024 1:46 AM [facility] Protein, Total 5.0(L) 6.1 - 8.0 g/dL 07/31/2024 1:46 AM [facility] Blood VENOUS BLOOD SPECIMEN / Unknown Venipuncture / Unknown 07/31/2024 1:08 AM EST 07/31/2024 1:18 AM EST Krystal Parker MD CHEMISTRY ORDERABLES [facility] [place] [address] * POC, GLUCOSE (07/30/2024 8:03 PM EST) Glucometer, POC 86 65 - 199 mg/dL 07/30/2024 8:03 PM [facility] Comment:Supplemental ranges: <140 mg/dL before meals <180 mg/dL all other times of the day. Blood CAPILLARY BLOOD / Unknown 07/30/2024 8:03 PM EST 07/30/2024 8:03 PM EST Krystal Parker MD POINT OF CARE TEST O RDERABLES Performing Organization Address City/[facility]/ZIP Co de Phone Number [facility] [place] [address] * Potassium (07/30/2024 8:03 PM EST) Potassium 3.8 3.5 - 5.0 mMol/L 07/30/2024 9:13 PM EST [facility] Blood VENOUS BLOOD SPECIMEN / Unknown Venipuncture / Unknown 07/30/2024 8:03 PM EST 07/30/2024 8:22 PM EST Jay Silverio MD CHEMISTRY ORDERABL ES Performing Organization Address [facility] [place]/[facility] Co de Phone Number [facility] [place] [address] * POC, GLUCOSE (07/30/2024 6:23 PM EST) [...] Address [facility] [place]/[facility]/ZIP Co de Phone Number [facility] [place] [address] * POC, GLUCOSE (07/30/2024 5:08 PM EST) [...] Address [facility] [place]/[facility]/ZIP Co de Phone Number [facility] [place] [address] * (ABNORMAL) Phosphorus (07/30/2024 3:08 PM EST) Phosphorus 2.1(L) 2.5 - 4.5 mg/dL 07/30/2024 3:58 PM EST [facility] Blood VENOUS BLOOD SPECIMEN / Unknown Venipuncture / Unknown 07/30/2024 3:08 PM EST 07/30/2024 3:12 PM EST Jay Silverio MD CHEMISTRY ORDERABL ES Performing Organization Address [facility] [place]/[facility] Co de Phone Number [facility] [place] [address] * Magnesium (07/30/2024 3:08 PM EST) Magnesium 0.90 0.69 - 1.07 mMol/L 07/30/2024 3:58 PM EST [facility] Blood VENOUS BLOOD SPECIMEN / Unknown Venipuncture / Unknown 07/30/2024 3:08 PM EST 07/30/2024 3:12 PM EST Jay Silverio MD CHEMISTRY ORDERABL ES Performing Organization Address City/[facility]/ZIP Co de Phone Number [facility] [place] [address] * (ABNORMAL) Basic Metabolic Panel (07/30/2024 3:08 PM EST) Glucose 105 65 - 199 mg/dL 07/30/2024 4:17 PM EST [facility] Comment:Glucose Concentratio n >=200 mg/dL plus symptoms is consistent with Diabetes Mellitus. Blood Urea Nitrogen 13 10 - 20 mg/dL 07/30/2024 4:17 PM EST [facility] Creatinine 1.01 0.80 - 1.50 mg/dL 07/30/2024 4:17 PM EST [facility] Sodium 141 135 - 145 mMol/L 07/30/2024 4:17 PM EST [facility] Potassium 3.4(L) 3.5 - 5.0 mMol/L 07/30/2024 4:17 PM [facility] Chloride 109(H) 98 - 107 mMol/L 07/30/2024 4:17 PM [facility] Carbon Dioxide 21(L) 22 - 31 mMol/L 07/30/2024 4:17 PM EST [facility] Anion Gap 11 5 - 15 mMol/L 07/30/2024 4:17 PM [facility] Calcium 7.9(L) 8.5 - 10.5 mg/dL 07/30/2024 4:17 PM [facility] Est Glomerular Filtration Rate - Male 79 mL/min/1. 73 m?? 07/30/2024 4:17 PM [facility] Comment: This patient's estimated GFR [...] EST Jay Silverio MD CHEMISTRY ORDERABL ES [facility] [place] [address] * ECHO LMTD W CONTRAST W LMTD SPEC DOPP COLOR DOPP (07/30/2024 11:42 AM EST) Anatomical Region Laterality Modality Cardiac Other 07/30/2024 10:2 2 AM EST Narrative 07/30/2024 12:34 PM EST [address] [place] [address] ? Echocardiogram Report Name: KOREY MONTOYA ? Study Date: 07/30/2024 10:22 AMBP: 124/66 mmHg : 1950 ? Height: 168 cm ? Account: [id number] Age: 74 yrs ? Weight: 65 kg Gender: Male ?BSA: 1.7 m2 Ordering Physician: Jay Silverio MD Referring Physician: CHAPARRO FERRERA Performed By: OMERO Millan Reason For Study: ST elevation myocardial infarction involving left anterior descending (LAD) coronary artery Interpreting Fellow: Ivan Hernandez. Exam Location: [facility]. Interpretation Summary Left ventricle is severely dilated. [...] Compared to the overnight study by the metal control coordinator fellow the impella position is stable. 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 Procedure Limited - 57344. Image enhancement Definity was used for both [...] Note Kathleen Banda MD - 07/30/2024 [address] [place] [address] Echocardiogram Report Name: KOREY MONTOYA Study Date: 410:22 AMBP: 124/66 mmHg : 1950 Height: 168 cm Account: [id number] Age: 74 yrs Weight: 65 kg Gender: Male BSA: 1.7 m2 Ordering Physician: Jay Silverio MD Referring Physician: CHAPARRO FERRERA Performed By: OMERO Millan Reason For Study: ST elevation myocardial infarction involving leftanterior descending (LAD) coronary artery Interpreting Fellow: Ivan Hernandez. Exam Location: [facility]. Interpretation Summary Left ventricle is severely dilated. [...] Compared to the overnight study by the metal control coordinator fellow the impella positionis stable. The global left ventricular systolic function has improvedpredominantly via recruitment outside the LAD territory which remains akinetic. Procedure Limited - 65322. Image enhancement Definity was used for both [...] - 199 mg/dL 07/30/2024 11:17 AM EST [facility] Comment:Supplemental ranges: <140 mg/dL before meals <180 mg/dL all other times of the day. Blood CAPILLARY BLOOD / Unknown 07/30/2024 11:17 AM EST 07/30/2024 11:17 AM EST Jay Silverio MD POINT OF CARE TEST ORDERABLES [facility] [place] [address] * (ABNORMAL) Blood Gas, Arterial POC (07/30/2024 8:16 AM EST) pH, Arterial 7.44 7.35 - 7.45 07/30/2024 8:17 AM EST [facility] PCO2, Arterial 29(L) 35 - 45 mmHg 07/30/2024 8:17 AM EST [facility] PO2, Arterial 109(H) 85 - 104 mmHg 07/30/2024 8:17 AM EST [facility] Bicarbonate, Arterial 19.4(L) 20.0 - 26.0 mmol/L 07/30/2024 8:17 AM [facility] Base Excess, Arterial -4.7(L) -3.0 - 3.0 mmol/L 07/30/2024 8:17 AM [facility] Hemoglobin, Arterial 12.2(L) 13.7 - 16.5 g/dL 07/30/2024 8:17 AM [facility] Oxyhemoglobin, Arterial 97.1(H) 94.0 - 97.0 % 07/30/2024 8:17 AM [facility] Carboxyhemoglob in, Arterial 1.0 % 07/30/2024 8:17 AM [facility] Comment: Nonsmokers: 0.5-1.5% COHB ?? Smokers: Variable ??but usually less than 10% ?? Toxic: 20-30% COHB ?? Lethal: Greater than 60% COHB Methemoglobin, Arterial 0.1 <=1.5 % 07/30/2024 8:17 AM [facility] Sodium, Arterial 132(L) 135 - 145 mmol/L 07/30/2024 8:17 AM [facility] Potassium, Arterial 3.9 3.5 - 5.0 mmol/L 07/30/2024 8:17 AM [facility] Chloride, Arterial 105 98 - 107 mmol/L 07/30/2024 8:17 AM [facility] Lactate, Arterial 1.2 0.5 - 2.2 mmol/L 07/30/2024 8:17 AM [facility] Fraction of Inspired Oxygen 21 % 07/30/2024 8:17 AM [facility] PF Ratio 519 Ratio 07/30/2024 8:17 AM [facility] Comment:PF ratio calculated using the non-temperature corrected pO2 result. IONIZED CALCIUM, ARTERIAL 1.15 1.15 - 1.33 mmol/L 07/30/2024 8:17 AM [facility] Blood ARTERIAL BLOOD / Unknown 07/30/2024 8:16 AM EST 07/30/2024 8:17 AM EST Jay Silverio MD POINT OF CARE TEST ORDERABLES Performing Organization Address City/[facility]/ZIP Co de Phone Number [facility] [place] [address] * (ABNORMAL) Troponin - Single (07/30/2024 8:09 [...] in the [facility] Laboratory Test Catalog Troponin - [email or web address] Reference: Fourth [place] Definition of Myocardial Infarction. Journal of the [place] [employer] 2018;72:6089-5955 Blood VENOUS BLOOD SPECIMEN / Unknown Venipuncture / Unknown 07/30/2024 8:09 AM EST 07/30/2024 8:26 AM EST Jay Silverio MD CHEMISTRY ORDERABL ES Performing Organization Address City/[facility]/ZIP Co de Phone Number [facility] [place] [address] * POC, GLUCOSE (07/30/2024 7:40 AM EST) Pathologist [facility] Glucometer, POC 111 65 - 199 mg/dL 07/30/2024 7:40 AM EST [facility] Comment:Supplemental ranges: <140 mg/dL before meals <180 mg/dL all other times of the day. Blood CAPILLARY BLOOD / Unknown 07/30/2024 7:40 AM EST 07/30/2024 7:40 AM EST Jay Silverio MD POINT OF CARE TEST ORDERABLES [facility] [place] [address] * (ABNORMAL) CBC (with Diff) (07/30/2024 2:11 AM EST) [facility] White Blood Cell 11.25(H) 4.00 - 9.50 x10(3)/mc L 07/30/2024 2:33 AM [facility] Red Blood Cell 4.50(L) 4.58 - 5.54 x10(6)/mc L 07/30/2024 2:33 AM [facility] Hemoglobin 12.2(L) 13.7 - 16.5 g/dL 07/30/2024 2:33 AM [facility] Hematocrit 37.1(L) 40.5 - 48.5 % 07/30/2024 2:33 AM [facility] Mean Cell Volume 82.4(L) 82.9 - 93.1 fL 07/30/2024 2:33 AM [facility] Mean Cell Hemoglobin 27.1(L) 27.5 - 32.1 pg 07/30/2024 2:33 AM [facility] Mean Cell Hemoglobin Concentration 32.9 32.0 - 35.7 g/dL 07/30/2024 2:33 AM [facility] Platelet 166 145 - 357 x10(3)/mc L 07/30/2024 2:33 AM [facility] Mean Platelet Volume 10.6 7.6 - 12.9 fL 07/30/2024 2:33 AM [facility] RDW Standard Deviation 44.6 36.0 - 45.0 fL 07/30/2024 2:33 AM [facility] RDW coefficient of variation 14.6(H) 11.4 - 13.8 % 07/30/2024 2:33 AM [facility] NRBC% auto 0.0 % 07/30/2024 2:33 AM [facility] NRBC Absolute <0.01 <0.01 x10(3)/mc L 07/30/2024 2:33 AM [facility] Neutrophil % 88.9 % 07/30/2024 2:33 AM [facility] Neutrophil Absolute (ANC) - Automated 10.00(H) 1.70 - 6.10 x10(3)/mc L 07/30/2024 2:33 AM [facility] Lymph % 5.1 % 07/30/2024 2:33 AM [facility] Lymph Absolute 0.57(L) 0.90 - 3.20 x10(3)/mc L 07/30/2024 2:33 AM [facility] Monocyte % 5.4 % 07/30/2024 2:33 AM [facility] Monocyte Absolute 0.61 0.30 - 0.90 x10(3)/mc L 07/30/2024 2:33 AM [facility] Eos % 0.0 % 07/30/2024 2:33 AM [facility] Eos Absolute <0.04 0.00 - 0.40 x10(3)/mc L 07/30/2024 2:33 AM [facility] Basophil % 0.2 % 07/30/2024 2:33 AM [facility] Baso Absolute <0.04 0.00 - 0.10 x10(3)/mc L 07/30/2024 2:33 AM [facility] Immature Gran % 0.4 % 2:33 AM EST [facility] Immature Gran Absolute 0.05(H) 0.00 - 0.04 x10(3)/mc L 07/30/2024 2:33 AM [facility] Blood VENOUS BLOOD SPECIMEN / Unknown Venipuncture / Unknown 07/30/2024 2:11 AM EST 07/30/2024 2:22 AM EST Bridgette Stauffer MD HEMATOLOGY ORDERABLE S Performing Organization Address [facility]/ZIP Co de Phone Number [facility] [place] [address] * Magnesium (07/30/2024 2:11 AM EST) Pathologist [facility] Magnesium 1.01 0.69 - 1.07 mMol/L 07/30/2024 2:51 AM [facility] Blood VENOUS BLOOD SPECIMEN / Unknown Venipuncture / Unknown 07/30/2024 2:11 AM EST 07/30/2024 2:22 AM EST Bridgette Stauffer MD CHEMISTRY ORDERABLES Performing Organization Address City/[facility] Co de Phone Number [facility] [place] [address] * (ABNORMAL) Basic Metabolic Panel (07/30/2024 2:11 AM EST) Pathologist [facility] Glucose 190 65 - 199 mg/dL 07/30/2024 2:51 AM [facility] Comment:Glucose Concentratio n >=200 mg/dL plus symptoms is consistent with Diabetes Mellitus. Blood Urea Nitrogen 15 10 - 20 mg/dL 07/30/2024 2:51 AM [facility] Creatinine 0.88 0.80 - 1.50 mg/dL 07/30/2024 2:51 AM [facility] Sodium 135 135 - 145 mMol/L 07/30/2024 2:51 AM [facility] Potassium 4.9 3.5 - 5.0 mMol/L 07/30/2024 2:51 AM EST [facility] Chloride 105 98 - 107 mMol/L 07/30/2024 2:51 AM [facility] Carbon Dioxide 19(L) 22 - 31 mMol/L 07/30/2024 2:51 AM [facility] Anion Gap 11 5 - 15 mMol/L 07/30/2024 2:51 AM [facility] Calcium 7.7(L) 8.5 - 10.5 mg/dL 07/30/2024 2:51 AM EST [facility] Est Glomerular Filtration Rate - Male 91 mL/min/1. 73 m?? 07/30/2024 2:51 AM [facility] Comment: This patient's estimated GFR [...] Stauffer MD CHEMISTRY ORDERABLES [facility] [place] [address] * (ABNORMAL) Cooximetry, POC (07/30/2024 1:00 AM EST) pO2, Coox 28 mmHg 07/30/2024 1:03 AM [facility] Hemoglobin, Coox 12.7(L) 13.7 - 16.5 g/dL 07/30/2024 1:03 AM [facility] Oxyhemoglobin, Coox 54.9 % 07/30/2024 1:03 AM [facility] Carboxyhemoglo bin, Coox 1.0 % 07/30/2024 1:03 AM [facility] Comment: Nonsmokers: 0.5-1.5% COHB ?? Smokers: Variable ??but usually less than 10% ?? Toxic: 20-30% COHB ?? Lethal: Greater than 60% COHB Methemoglobin, Coox 0.0 <=1.5 % 07/30/2024 1:03 AM [facility] Blood (Mixed Venous) 07/30/2024 1:00 AM EST 07/30/2024 1:03 AM EST Jay Silverio MD POINT OF CARE TEST ORDERABLES Performing Organization Address City/State/[facility] Co de Phone Number [facility] [place] [address] * (ABNORMAL) Blood Gas, Arterial POC (07/30/2024 12:57 AM EST) pH, Arterial 7.38 7.35 - 7.45 07/30/2024 12:58 AM [facility] PCO2, Arterial 34(L) 35 - 45 mmHg 07/30/2024 12:58 AM [facility] PO2, Arterial 141(H) 85 - 104 mmHg 07/30/2024 12:58 AM [facility] Bicarbonate, Arterial 19.5(L) 20.0 - 26.0 mmol/L 07/30/2024 12:58 AM [facility] Base Excess, Arterial -5.6(L) -3.0 - 3.0 mmol/L 07/30/2024 12:58 AM [facility] Hemoglobin, Arterial 13.0(L) 13.7 - 16.5 g/dL 07/30/2024 12:58 AM [facility] Oxyhemoglobin, Arterial 98.4(H) 94.0 - 97.0 % 07/30/2024 12:58 AM [facility] Carboxyhemoglobin , Arterial 0.4 % 07/30/2024 12:58 AM [facility] Comment: Nonsmokers: 0.5-1.5% COHB ?? Smokers: Variable ??but usually less than 10% ?? Toxic: 20-30% COHB ?? Lethal: Greater than 60% COHB Methemoglobin, Arterial 0.1 <=1.5 % 07/30/2024 12:58 AM [facility] Sodium, Arterial 130(L) 135 - 145 mmol/L 07/30/2024 12:58 AM [facility] Potassium, Arterial 4.5 3.5 - 5.0 mmol/L 07/30/2024 12:58 AM [facility] Chloride, Arterial 104 98 - 107 mmol/L 07/30/2024 12:58 AM [facility] Lactate, Arterial 1.3 0.5 - 2.2 mmol/L 07/30/2024 12:58 AM [facility] Flow Rate 2.0 L/min 07/30/2024 12:58 AM [facility] IONIZED CALCIUM, ARTERIAL 1.12(L) 1.15 - 1.33 mmol/L 07/30/2024 12:58 AM [facility] Glucose, Arterial 184 65 - 199 mg/dL 07/30/2024 12:58 AM [facility] Comment:Glucose Concentratio n >=200 mg/dL plus symptoms is consistent with Diabetes Mellitus. Blood ARTERIAL BLOOD / Unknown 07/30/2024 12:57 AM EST 07/30/2024 12:58 AM EST Jay Silverio MD POINT OF CARE TEST ORDERABLES [facility] [place] [address] * (ABNORMAL) Troponin - Single (07/29/2024 10:31 PM EST) Troponin-T, High Sensitivity >10,000(H ) <=22 ng/L 07/29/2024 11:03 PM EST [facility] Comment: This [...] in the [facility] Laboratory Test Catalog Troponin - [email or web address]-.testcatalog.org/catalogs/565/files/36669 Reference: Fourth [place] Definition of Myocardial Infarction. Journal of the [place] College [employer] 2018;72:5007-3980 Blood VENOUS BLOOD SPECIMEN / Unknown Venipuncture / Unknown 07/29/2024 10:31 PM EST 07/29/2024 10:36 PM EST Yrn Ward MD CHEMISTRY ORDERABL ES [facility] [place] [address] * Potassium (07/29/2024 8:11 PM EST) Potassium 4.1 3.5 - 5.0 mMol/L 07/29/2024 8:52 PM EST [facility] Blood VENOUS BLOOD SPECIMEN / Unknown Venipuncture / Unknown 07/29/2024 8:11 PM EST 07/29/2024 8:16 PM EST Jay Silverio MD CHEMISTRY ORDERABL ES Performing Organization Address City/[facility]/ZIP Co de Phone Number [facility] [place] [address] * (ABNORMAL) Troponin - Single (07/29/2024 8:11 [...] in the [facility] Laboratory Test Catalog Troponin - https://[email or web address]-.testcatalog.org/catalogs/565/files/41754 Reference: Fourth [place] Definition of Myocardial Infarction. Journal of the [place] [employer]iology 2018;72:1620-4555 Blood VENOUS BLOOD SPECIMEN / Unknown Venipuncture / Unknown 07/29/2024 8:11 PM EST 07/29/2024 8:16 PM EST Jay Silverio MD CHEMISTRY ORDERABL ES [facility] [place] [address] * (ABNORMAL) Phosphorus (07/29/2024 8:11 PM EST) Phosphorus 2.1(L) 2.5 - 4.5 mg/dL 07/29/2024 8:52 PM EST [facility] Blood VENOUS BLOOD SPECIMEN / Unknown Venipuncture / Unknown 07/29/2024 8:11 PM EST 07/29/2024 8:16 PM EST aJy Silverio MD CHEMISTRY ORDERABL ES Performing Organization Address City/[facility]/ZIP Co de Phone Number [facility] [place] [address] * POC, GLUCOSE (07/29/2024 8:09 PM EST) Glucometer, POC 142 65 - 199 mg/dL 07/29/2024 8:09 PM EST [facility] Comment:Supplemental ranges: <140 mg/dL before meals <180 mg/dL all other times of the day. Blood CAPILLARY BLOOD / Unknown 07/29/2024 8:09 PM EST 07/29/2024 8:09 PM EST Jay Silverio MD POINT OF CARE TEST ORDERABLES Performing Organization Address City/[facility]/ZIP Co de Phone Number [facility] [place] [address] * ABORH RECHECK (07/29/2024 6:43 PM EST) ABORH Recheck AB POSITIVE 07/29/2024 10:13 PM EST [facility] Blood VENOUS BLOOD SPECIMEN / Unknown Venipuncture / Unknown 07/29/2024 6:43 PM EST 07/29/2024 7:15 PM EST Jay Silverio MD BLOOD BANK LAB ORD ERABLES Performing Organization Address City/[facility]/ZIP Co de Phone Number [facility] [place] [address] * POC, GLUCOSE (07/29/2024 5:57 PM EST) Glucometer, POC 166 65 - 199 mg/dL 07/29/2024 5:57 PM EST [facility] Comment:Supplemental ranges: <140 mg/dL before meals <180 mg/dL all other times of the day. Blood CAPILLARY BLOOD / Unknown 07/29/2024 5:57 PM EST 07/29/2024 5:57 PM EST Jay Silverio MD POINT OF CARE TEST ORDERABLES Performing Organization Address City/[facility]/ZIP Co de Phone Number [facility] [place] [address] * Type and screen ([facility]/JONG/MAGALIE) (07/29/2024 5:56 PM EST) [facility] ABORH Type AB POSITIVE 07/29/2024 9:44 PM EST [facility] PATIENT HISTORY Not Found 07/29/2024 9:44 PM EST [facility] Expires at [id number] on: 08/01/2024 07/29/2024 9:44 PM EST [facility] ANTIBODY SCREEN AUTOMATED Negative 07/29/2024 9:44 PM EST [facility] T&S only valid at [facility] 07/29/2024 9:44 PM EST [facility] Blood VENOUS BLOOD SPECIMEN / Unknown Venipuncture / Unknown 07/29/2024 5:56 PM EST 07/29/2024 6:07 PM EST Narrative [facility] - 07/29/2024 9:44 PM EST This Type and Screen result is only valid at the [facility] Jay Silverio MD BLOOD BANK LAB ORD ERABLES Performing Organization Address City/[facility]/ZIP Co de Phone Number [facility] [place] [address] * (ABNORMAL) Troponin - Single (07/29/2024 4:52 PM EST) [facility] Troponin-T, High Sensitivity >10,000(H ) <=22 [...] in the [facility] Laboratory Test Catalog Troponin - https://[email or web address].org/catalogs/565/files/[email or web address] Reference: Fourth Whitehall Definition of Myocardial Infarction. Journal of the [place] College of [employer]iology 2018;72:0966-3455 Blood VENOUS BLOOD SPECIMEN / Unknown Venipuncture / Unknown 07/29/2024 4:52 PM EST 07/29/2024 4:57 PM EST Jay Silverio MD CHEMISTRY ORDERABL ES Performing Organization Address City/State/[facility] Co de Phone Number [facility] [place] [address] * EKG 12 Lead (07/29/2024 4:21 PM EST) Ventricular rate 72 BPM MUSE SYSTEM Atrial Rate 72 BPM MUSE SYSTEM P-R Interval 168 ms MUSE SYSTEM QRS Duration 82 ms MUSE SYSTEM Q-T Interval 392 ms MUSE SYSTEM QTC Calculated (Bezet) 429 ms MUSE SYSTEM Calculated P [place] 71 degrees MUSE SYSTEM Calculated R [place] 77 degrees MUSE SYSTEM Calculated T [place] 28 degrees MUSE SYSTEM INTERPRETATION Sinus rhythm with Premature supraventricular complexes and Occasional Premature ventricular complexes Low voltage QRS 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) Lateral injury pattern ACUTE MS / STEMI Abnormal ECG When compared with [...] 7.37 7.35 - 7.45 07/29/2024 4:22 PM [facility] PCO2, Arterial 36 35 - 45 mmHg 07/29/2024 4:22 PM [facility] PO2, Arterial 71(L) 85 - 104 mmHg 07/29/2024 4:22 PM [facility] Bicarbonate, Arterial 20.4 20.0 - 26.0 mmol/L 07/29/2024 4:22 PM [facility] Base Excess, Arterial -4.8(L) -3.0 - 3.0 mmol/L 07/29/2024 4:22 PM [facility] Hemoglobin, Arterial 12.2(L) 13.7 - 16.5 g/dL 07/29/2024 4:22 PM [facility] Oxyhemoglobin, Arterial 93.8(L) 94.0 - 97.0 % 07/29/2024 4:22 PM [facility] Carboxyhemoglobin , Arterial 0.5 % 07/29/2024 4:22 PM [facility] Comment: Nonsmokers: 0.5-1.5% COHB ?? Smokers: Variable ??but usually less than 10% ?? Toxic: 20-30% COHB ?? Lethal: Greater than 60% COHB Methemoglobin, Arterial 0.3 <=1.5 % 07/29/2024 4:22 PM [facility] Sodium, Arterial 134(L) 135 - 145 mmol/L 07/29/2024 4:22 PM [facility] Potassium, Arterial 4.2 3.5 - 5.0 mmol/L 07/29/2024 4:22 PM [facility] Chloride, Arterial 107 98 - 107 mmol/L 07/29/2024 4:22 PM [facility] Lactate, Arterial 1.5 0.5 - 2.2 mmol/L 07/29/2024 4:22 PM [facility] Fraction of Inspired Oxygen 21 % 07/29/2024 4:22 PM [facility] PF Ratio 338 Ratio 07/29/2024 4:22 PM [facility] Comment:PF ratio calculated using the non-temperature corrected pO2 result. IONIZED CALCIUM, ARTERIAL 1.12(L) 1.15 - 1.33 mmol/L 07/29/2024 4:22 PM [facility] Glucose, Arterial 181 65 - 199 mg/dL 07/29/2024 4:22 PM [facility] Comment:Glucose Concentratio n >=200 mg/dL plus symptoms is consistent with Diabetes Mellitus. Blood ARTERIAL BLOOD / Unknown 07/29/2024 4:21 PM EST 07/29/2024 4:22 PM EST Jay Silverio MD POINT OF CARE TEST ORDERABLES Performing Organization Address City/State/ZIP Co fl Phone Number [facility] [place] [address] * POC, GLUCOSE (07/29/2024 4:19 PM EST) [facility] Signature Glucometer, POC 185 65 - 199 mg/dL 07/29/2024 4:19 PM [facility] Comment:Supplemental ranges: <140 mg/dL before meals <180 mg/dL all other times of the day. Blood CAPILLARY BLOOD / Unknown 07/29/2024 4:19 PM EST 07/29/2024 4:19 PM EST Jay Silverio MD POINT OF CARE TEST ORDERABLES [facility] [place] [address] * Blood culture (07/29/2024 4:08 PM EST) Blood Culture No growth at 120 hours 08/03/2024 5:01 PM EST [facility] Blood VENOUS BLOOD SPECIMEN / Unknown Venipuncture / Unknown 07/29/2024 4:08 PM EST 07/29/2024 4:15 PM EST Jay Silverio MD MICROBIOLOGY - BLO OD ORDERABLES Performing Organization Address [facility] Co de Phone Number [facility] [place] [address] * Blood culture (07/29/2024 4:08 PM EST) Blood Culture No growth at 120 hours 08/03/2024 5:01 PM EST [facility] Blood VENOUS BLOOD SPECIMEN / Unknown Venipuncture / Unknown 07/29/2024 4:08 PM EST 07/29/2024 4:26 PM EST Jay Silverio MD MICROBIOLOGY - BLO OD ORDERABLES Performing Organization Address [facility] Co de Phone Number [facility] [place] [address] * XR Chest One View (07/29/2024 2:30 PM EST) WORKSTATION ID [id number] DH RAD Anatomical Region Laterality Modality Chest [...] please contact the health long term care phlebotomist that requested your imaging first. ? Electronically signed by: Chris Candelarai MD, [facility] ([phone]), at 07/29/2024 3:21 PM Narrative 07/29/2024 3:21 [...] questions please contactthe health long term care phlebotomist that requested your imaging first. Electronically signed by: Chris Candelaria MD, [facility]([phone]), at 07/29/2024 3:21 PM Vahe Marvin MD IMG DX ORDERABLES * (ABNORMAL) APTT (07/29/2024 2:03 PM EST) Partial Thromboplastin Time >160(HHH) 25 - 37 sec 07/29/2024 2:56 PM EST [facility] Blood VENOUS BLOOD SPECIMEN / Unknown Venipuncture / Unknown 07/29/2024 2:03 PM EST 07/29/2024 2:13 PM EST aVhe Marvin MD HEMATOLOGY ORDERABLE S Performing Organization Address [facility]/ZIP Co de Phone Number [facility] [place] [address] * (ABNORMAL) Prothrombin Time (07/29/2024 2:03 PM [...] MD HEMATOLOGY ORDERABLE S Performing Organization Address City/[facility]/ZIP Co de Phone Number [facility] [place] [address] * CRP, acute inflammation (07/29/2024 2:03 PM EST) C-Reactive Protein <3.0 <=4.9 mg/L 07/29/2024 2:52 PM EST [facility] Blood VENOUS BLOOD SPECIMEN / Unknown Venipuncture / Unknown 07/29/2024 2:03 PM EST 07/29/2024 2:14 PM EST Vahe Marvin MD CHEMISTRY ORDERABLES [facility] [place] [address] * Lipid Panel (Reflex Direct LDL) (07/29/2024 2:03 PM EST) [facility] Signature Cholesterol, Total 133 mg/dL 07/29/2024 2:52 PM [facility] Comment: Desirable: < 200 mg/dL Borderline High: 200 - 239 mg/dL High: > or = 240 mg/dL Triglyceride 45 mg/dL 07/29/2024 2:52 PM [facility] Comment: Normal: <150 mg/dL Borderline High: 150-199 mg/dL High: 200-499 mg/dL Very High: > or =500 mg/dL HDL Cholesterol 58 mg/dL 2:52 PM [facility] Comment:Males: High Risk: <4 0 mg/dL LDL Cholesterol 64 mg/dL 4 2:52 PM [facility] Comment: Desirable: <100 mg/dL Above Desirable: 100-129 mg/dL Borderline High: 130-159 mg/dL High: 160-189 mg/dL Very High: > or =190 mg/dL Note: LDL calculation updated to the NIH LDL formula as of 04/15/2024 Non-HDL Cholesterol 75 mg/dL 07/29/2024 2:52 PM [facility] Comment: Desirable: <130 mg/dL Above Desirable: 130-159 mg/dL Borderline High: 160-189 mg/dL High: 190-219 mg/dL Very High: > or = 220 mg/dL Blood VENOUS BLOOD SPECIMEN / Unknown Venipuncture / Unknown 07/29/2024 2:03 PM EST 07/29/2024 2:14 PM EST [facility] - 07/29/2024 2:52 PM EST [...] ACC/AHA Guidelines (most recently Rolf et al. [facility] 06/15/22): * For individuals with [...] Marvin MD CHEMISTRY ORDERABLES Performing Organization Address City/[facility]/ZIP Co de Phone Number [facility] [place] [address] * TSH [place] (07/29/2024 2:03 PM EST) Thyroid Stimulating Hormone 0.70 0.27 - 4.20 mcIU/mL 07/29/2024 2:52 PM EST [facility] Blood VENOUS BLOOD SPECIMEN / Unknown Venipuncture / Unknown 07/29/2024 2:03 PM EST 07/29/2024 2:14 PM EST Vahe Marvin MD CHEMISTRY ORDERABLES Performing Organization Address [facility] Co de Phone Number [facility] [place] [address] * Hemoglobin A1c (07/29/2024 2:03 PM EST) [...] red blood cell turnover may not be group sales representative of glycemic control. Reference Interval: [...] EST 07/29/2024 2:14 PM EST [facility] - 07/29/2024 2:41 PM EST Estimated average glucose (eAG) is calculated from the equation described in: Quinten ALVES, Rikki J, [place] R, et al. ??Translating the A1C assay into estimated average glucose values. ??Diabetes Care 2008:31(8):8836-6938. Additional resources are available on the ADA website (diabetes.org). Vahe Marvin MD CHEMISTRY ORDERABLES [facility] [place] [address] * (ABNORMAL) CBC (with Diff) (07/29/2024 2:03 PM EST) White Blood Cell 19.50(H) 4.00 - 9.50 x10(3)/mc L 07/29/2024 2:18 PM EST [facility] Red Blood Cell 4.81 4.58 - 5.54 x10(6)/mc L 07/29/2024 2:18 PM [facility] Hemoglobin 13.1(L) 13.7 - 16.5 g/dL 07/29/2024 2:18 PM [facility] Hematocrit 40.1(L) 40.5 - 48.5 % 07/29/2024 2:18 PM [facility] Mean Cell Volume 83.4 82.9 - 93.1 fL 07/29/2024 2:18 PM [facility] Mean Cell Hemoglobin 27.2(L) 27.5 - 32.1 pg 07/29/2024 2:18 PM [facility] Mean Cell Hemoglobin Concentration 32.7 32.0 - 35.7 g/dL 07/29/2024 2:18 PM [facility] Platelet 236 145 - 357 x10(3)/mc L 07/29/2024 2:18 PM [facility] Mean Platelet Volume 10.6 7.6 - 12.9 fL 07/29/2024 2:18 PM [facility] RDW Standard Deviation 43.7 36.0 - 45.0 fL 07/29/2024 2:18 PM [facility] RDW coefficient of variation 14.3(H) 11.4 - 13.8 % 07/29/2024 2:18 PM [facility] NRBC% auto 0.0 % 07/29/2024 2:18 PM [facility] NRBC Absolute <0.01 <0.01 x10(3)/mc L 07/29/2024 2:18 PM [facility] Neutrophil % 93.6 % 07/29/2024 2:18 PM [facility] Neutrophil Absolute (ANC) - Automated 18.28(H) 1.70 - 6.10 x10(3)/mc L 07/29/2024 2:18 PM [facility] Lymph % 2.7 % 07/29/2024 2:18 PM [facility] Lymph Absolute 0.52(L) 0.90 - 3.20 x10(3)/mc L 07/29/2024 2:18 PM [facility] Monocyte % 2.9 % 07/29/2024 2:18 PM [facility] Monocyte Absolute 0.56 0.30 - 0.90 x10(3)/mc L 07/29/2024 2:18 PM [facility] Eos % 0.0 % 07/29/2024 2:18 PM [facility] Eos Absolute <0.04 0.00 - 0.40 x10(3)/mc L 07/29/2024 2:18 PM [facility] Basophil % 0.3 % 07/29/2024 2:18 PM [facility] Baso Absolute 0.05 0.00 - 0.10 x10(3)/mc L 07/29/2024 2:18 PM [facility] Immature Gran % 0.5 % 2:18 PM EST [facility] Immature Gran Absolute 0.09(H) 0.00 - 0.04 x10(3)/mc L 07/29/2024 2:18 PM EST [facility] Blood VENOUS BLOOD SPECIMEN / Unknown Venipuncture / Unknown 07/29/2024 2:03 PM EST 07/29/2024 2:13 PM EST Vahe Marvin MD HEMATOLOGY ORDERABLE S Performing Organization Address City/[facility]/ZIP Co de Phone Number [facility] [place] [address] * Phosphorus (07/29/2024 2:03 PM EST) Phosphorus 2.5 2.5 - 4.5 mg/dL 07/29/2024 2:52 PM EST [facility] Blood VENOUS BLOOD SPECIMEN / Unknown Venipuncture / Unknown 07/29/2024 2:03 PM EST 07/29/2024 2:14 PM EST Vahe Marvin MD CHEMISTRY ORDERABLES Performing Organization Address [facility] Co de Phone Number [facility] [place] [address] * Magnesium (07/29/2024 2:03 PM EST) Magnesium 0.70 0.69 - 1.07 mMol/L 07/29/2024 2:52 PM EST [facility] Blood VENOUS BLOOD SPECIMEN / Unknown Venipuncture / Unknown 07/29/2024 2:03 PM EST 07/29/2024 2:14 PM EST Vahe Marvin MD CHEMISTRY ORDERABLES Performing Organization Address [facility] [place]/[facility] Co de Phone Number [facility] [place] [address] * (ABNORMAL) Comprehensive metabolic panel (07/29/2024 2:03 PM EST) Glucose 243(H) 65 - 199 mg/dL 07/29/2024 3:11 PM [facility] Comment:Glucose Concentratio n >=200 mg/dL plus symptoms is consistent with Diabetes Mellitus. Blood Urea Nitrogen 13 10 - 20 mg/dL 07/29/2024 3:11 PM [facility] Creatinine 0.88 0.80 - 1.50 mg/dL 07/29/2024 3:11 PM [facility] Sodium 138 135 - 145 mMol/L 07/29/2024 3:11 PM [facility] Potassium 3.6 3.5 - 5.0 mMol/L 07/29/2024 3:11 PM [facility] Chloride 104 98 - 107 mMol/L 07/29/2024 3:11 PM [facility] Carbon Dioxide 19(L) 22 - 31 mMol/L 07/29/2024 3:11 PM [facility] Anion Gap 15 5 - 15 mMol/L 07/29/2024 3:11 PM [facility] Calcium 8.0(L) 8.5 - 10.5 mg/dL 07/29/2024 3:11 PM [facility] Protein, Total 6.0(L) 6.1 - 8.0 g/dL 07/29/2024 3:11 PM [facility] Albumin 3.6 3.2 - 5.2 g/dL 07/29/2024 3:11 PM [facility] Aspartate Aminotransferase 07/29/2024 3:11 PM [facility] Comment:Unable to report due to hemolysis. Alanine Aminotransferase 56(H) 0 - 55 unit/L 07/29/2024 3:11 PM [facility] Alkaline Phosphatase 58 40 - 130 unit/L 07/29/2024 3:11 PM [facility] Bilirubin, Total 0.5 <=1.3 mg/dL 07/29/2024 3:11 PM [facility] Est Glomerular Filtration Rate - Male 91 mL/min/1. 73 m?? 07/29/2024 3:11 PM EST [facility] Comment: This [...] Marvin MD CHEMISTRY ORDERABLES [facility] [place] [address] * (ABNORMAL) Troponin - Single (07/29/2024 2:03 [...] in the [facility] Laboratory Test Catalog Troponin - https://[email or web address].org/catalogs/565/files/[email or web address] Reference: Fourth [place] Definition of Myocardial Infarction. Journal of the [place] [employer] 2018;72:8362-4044 Blood VENOUS BLOOD SPECIMEN / Unknown Venipuncture / Unknown 07/29/2024 2:03 PM EST 07/29/2024 2:14 PM EST Vahe Marvin MD CHEMISTRY ORDERABLES [facility] [place] [address] * (ABNORMAL) Blood Gas, Venous POC (07/29/2024 2:01 PM EST) pH, Venous 7.30(L) 7.32 - 7.42 07/29/2024 2:02 PM [facility] PCO2, Venous 42 38 - 58 mmHg 07/29/2024 2:02 PM [facility] PO2, Venous 39 16 - 65 mmHg 07/29/2024 2:02 PM [facility] Bicarbonate, Venous 20.1(L) 22 - 31 mmol/L 07/29/2024 2:02 PM [facility] Base Excess, Venous -6.4(L) 1.9 - 4.5 mmol/L 07/29/2024 2:02 PM [facility] Hemoglobin, Venous 14.2 13.7 - 16.5 g/dL 07/29/2024 2:02 PM [facility] Oxyhemoglobin, Venous 69.3 % 07/29/2024 2:02 PM [facility] Carboxyhemoglobin , Venous 0.8 % 07/29/2024 2:02 PM [facility] Comment: Nonsmokers: 0.5-1.5% COHB ?? Smokers: Variable ??but usually less than 10% ?? Toxic: 20-30% COHB ?? Lethal: Greater than 60% COHB Methemoglobin, Venous 0.3 <=1.5 % 07/29/2024 2:02 PM EST [facility] Sodium, Venous 137 135 - 145 mmol/L 07/29/2024 2:02 PM [facility] Potassium, Venous 3.6 3.5 - 5.0 mmol/L 07/29/2024 2:02 PM [facility] Chloride, Venous 103 98 - 107 mmol/L 07/29/2024 2:02 PM EST [facility] Glucose, Venous 229(H) 65 - 199 mg/dL 07/29/2024 2:02 PM [facility] Comment:Glucose Concentratio n >=200 mg/dL plus symptoms is consistent with Diabetes Mellitus. Lactate, Venous 3.1(H) 0.5 - 2.2 mmol/L 07/29/2024 2:02 PM [facility] Ionized Calcium, Venous 1.11(L) 1.15 - 1.33 mmol/L 07/29/2024 2:02 PM [facility] Blood VENOUS BLOOD SPECIMEN / Unknown 07/29/2024 2:01 PM EST 07/29/2024 2:02 PM EST Vahe Marvin MD POINT OF CARE TEST O RDERABLES Performing Organization Address City/State/[facility] Co de Phone Number [facility] [place] [address] * CARDIAC CATHETERIZATION (07/29/2024 1:20 PM EST) Anatomical Region Laterality Modality Other Narrative 07/29/2024 2:02 PM EST ?[facility] ? Cardiac Catheterization/Intervention Report ? Patient Name: Korey Montoya. ? Procedure Date: 07/29/2024 ? A #: [id number] ? Primary Physician: Shavonne, Vahe S ? Case #: [id number] ? File Name: [id number] ? Catheterization Order Number: [id number] ? [facility] ? Final Report [place], [place] ? Patient Name: ? Korey P. Montoya ?ID#: ?[id number] ? : ?1950 ? Procedure Date: ? July 29, 2024 ?Case #: ? [id number] ? Room: ? 5 ? Case Physician: [...] procedure was Emergent. The indication for ?the excavation laborer visit is ACS less than or [...] guiding catheter and a 3.[address] [facility] [address] ??20 Mhz using ?Manual pullback. ??Imaging [...] LAD. This was a de merelne lesion. ? According to the ACC/AHA classification [...] ? A premounted 3.00 x 22 mm Alpha [place] (LOW) was deployed ? with a maximum [...] ??A premounted 3.00 x 08 mm Jeison [place] (LOW) ? was deployed with a maximum [...] dose administered prior to arrival in the excavation laborer. ?Recommended anti-platelet/anti-thrombotic regimen: ?Start aspirin 81 mg daily now and continue for 12 months then stop. ?Start clopidogrel 75 mg daily now and continue for indefinitely. ?These recommendations are made at the time of the intervention. Patient ?and provider preferences or a changing clinical situation may require ?modification of this regimen. Consult [facility] Interventional Cardiology for ?questions. ?The 1 year [...] able ?to start weaning his inotropes/vasopressors. A Haskins Colette catheter was ?placed demonstrating improvement in [...] ventricular assist device insertion, right heart ?catheterization, Haskins (flow directed cath) insertion, access site ?angiography, vascular ultrasound, venous line / sheath insert and vascular ?closure device. ? Vahe S Shavonne, M.D. ? Electronically Signed by: Vahe Marvin M.D. ? Report Finalized: 07/29/2024 ??13:55 ? Report Last Ammended: 07/30/2024 ??10:15 ? Procedure Note Vahe Marvin MD - 07/30/2024 [facility] Cardiac Catheterization/Intervention Report Patient Name: Korey Montoya Procedure Date: 07/29/2024 A #: [id number] Primary Physician: Vahe Marvin Case #: [id number] File Name: [id number] Catheterization Order Number: [id number] [facility] FinalReport [place], [place] Patient Name: Korey Montoya ID#:[id number] :[id number] Procedure Date: July 29, 2024 Case [...] diagnostic procedure was Emergent. Theindication for the excavation laborer visit is ACS less than or [...] guiding catheter and a 3.[address] [facility] [facility] [address] [facility] 20 Mhzusing Manual pullback. Imaging was [...] The priority for the procedure was Emergent.[facility] STEMI-Immediate [...] The lesion was predilated with a 2.00mm [id number] MM balloon with a maximum inflation pressure of 12atmospheres. A premounted 3.00 x 22 mm Jeison [place] (LOW) wasdeployed with a maximum inflation pressure [...] atmospheres. A premounted 3.00 x 08 mm Alpha [place](LOW) was deployed with a maximum inflation pressure [...] dose administered prior to arrival in the excavation laborer. Recommended anti-platelet/anti-thrombotic regimen: Start aspirin 81 mg daily now and continue for 12 months then stop. Start clopidogrel 75 mg daily now and continue for indefinitely. These recommendations are made at the time of the intervention.Patient and provider preferences or a changing clinical situation mayrequire modification of this regimen. Consult [facility] Interventional Cardiologyfor questions. The 1 year bleeding [...] wereable to start weaning his inotropes/vasopressors. A Haskins Colette catheterwas placed demonstrating improvement in his [...] ventricular assist device insertion, right heart catheterization, Haskins (flow directed cath) insertion, access site angiography, vascular ultrasound, venous line / sheath insert andvascular closure device. Vahe Marvin M.D. Electronically Signed by: Vahe Marvin M.D. Report Finalized: 07/29/2024 13:55 Report Last Ammended: 07/30/2024 10:15 Vahe Marvin MD CARDIAC CATH ORDERAB LES * (ABNORMAL) BLOOD GAS, POC (07/29/2024 12:46 PM EST) Sodium, POC 139 135 - 145 mmol/L 07/30/2024 7:30 AM [facility] Potassium, POC 3.4(L) 3.5 - 5.0 mmol/L 07/30/2024 7:30 AM [facility] pH, POC 7.33(L) 7.35 - 7.45 07/30/2024 7:30 AM [facility] Ionized Calcium, POC 1.13(L) 1.15 - 1.33 mmol/L 07/30/2024 7:30 AM [facility] pCO2, POC 38 35 - 45 mmHg 07/30/2024 7:30 AM [facility] pO2, POC 94 85 - 104 mmHg 07/30/2024 7:30 AM [facility] Base Excess, POC -6.0(L) -3.0 - 3.0 mmol/L 07/30/2024 7:30 AM [facility] Hematocrit, POC 39.0(L) 40.5 - 48.5 %PCV 07/30/2024 7:30 AM [facility] Hemoglobin, POC 13.3(L) 13.7 - 16.5 g/dL 07/30/2024 7:30 AM [facility] Comment:The calculation of h emoglobin from hematocrit assumes a normal MCHC. Bicarbonate, POC 19.8(L) 20.0 - 26.0 mmol/L 07/30/2024 7:30 AM [facility] Carbon Dioxide, POC 21(L) 22 - 31 mmol/L 07/30/2024 7:30 AM [facility] Blood VENOUS BLOOD SPECIMEN / Unknown 07/29/2024 12:46 PM EST 07/30/2024 7:30 AM EST Vahe Marvin MD POINT OF CARE TEST O RDERABLES [facility] [place] [address] * (ABNORMAL) BLOOD GAS, POC (07/29/2024 12:12 PM EST) Sodium, POC 135 135 - 145 mmol/L 07/30/2024 7:30 AM [facility] Potassium, POC 3.8 3.5 - 5.0 mmol/L 07/30/2024 7:30 AM [facility] pH, POC 7.27(LLL) 7.35 - 7.45 07/30/2024 7:30 AM [facility] Ionized Calcium, POC 1.14(L) 1.15 - 1.33 mmol/L 07/30/2024 7:30 AM [facility] pCO2, POC 43 35 - 45 mmHg 07/30/2024 7:30 AM [facility] pO2, POC 131(H) 85 - 104 mmHg 07/30/2024 7:30 AM [facility] Base Excess, POC -7.0(L) -3.0 - 3.0 mmol/L 07/30/2024 7:30 AM [facility] Hematocrit, POC 36.0(L) 40.5 - 48.5 %PCV 07/30/2024 7:30 AM [facility] Hemoglobin, POC 12.2(L) 13.7 - 16.5 g/dL 07/30/2024 7:30 AM [facility] Comment:The calculation of h emoglobin from hematocrit assumes a normal MCHC. Bicarbonate, POC 19.7(L) 20.0 - 26.0 mmol/L 07/30/2024 7:30 AM [facility] Carbon Dioxide, POC 21(L) 22 - 31 mmol/L 07/30/2024 7:30 AM EST [facility] Blood VENOUS BLOOD SPECIMEN / Unknown 07/29/2024 12:12 PM EST 07/30/2024 7:30 AM EST Vahe Marvin MD POINT OF CARE TEST O RDERABLES [facility] [place] [address] documented in this encounter Visit Diagnoses Diagnosis [...] based off of anti-Xa levels per the [facility] Anti-Xa Algorithm and inform the ECMO attending. [...] Watson RN) 0934 (Given - Provider: Tonya Watsno RN) empagliflozin (Jardiance) tablet 10 mg 10 [...] 0845 (Given - Provider: Tonya Watson RN) 9328 (Given - Provider: Tonya Watson RN) PRN [...] Routine documented in this encounter Care Teams Taxi Proprietor Relationship Specialty Start Date End Date Alexia Mtz APRN [address] [place] [id number] PCP - General Family Medicine 07/30/24 documented as of this encounter
--- OUTSIDE RECORDS SUMMARY | 2024-09-19 13:08 | XMS_ITS | Encounter Summary ---
[place] [address] Care Team Providers Care Packing House Laborer Name Role Phone Alexia Mtz FREDRICK Primary Care Provider [phone] Reason for Visit * Auth/Cert (Routine) Specialty Diagnoses / Procedures Referred By Theodore muro Referred To Contact Diagnoses STEMI (ST elevation myocardial infarction) STEMI Procedures ER SUI Vahe Marvin MD [facility] [place] [address] [facility] Referral ID Status Reason Start Date Expiration Date Visits Re quested Visits Authorized [id number] 1 1 Encounter Details Date Type Department Care Team (Late st Contact Info) Description 07/31/2024 4:30 PM EST - 07/31/2024 5:30 PM EST [place] [address] Maldonado Luis MD [facility] [place] [address] CARDIAC CATHETERIZATION Social History Tobacco Use Types Packs/Day Years Used Date Smoking Tobacco: Former Cigarettes Smokeless Tobacco: Never Alcohol Use Standard Drinks/Week Comments Not Currently 0 (1 standard drink = 0.6 oz pur e alcohol) [facility] Utilities Answer Date Recorded In the past 12 months has [employer] electric, gas, oil, or water company threatened [...] any time in the past 12 m [facility], were you homeless or living [...] Korey Montoya Patient Age: 74 y.o. Language: Gambian Race: White Ethnicity: Not nor Admit date: [...] [facility] R[facility] . Issues afterhours and on weekends will [...] the next year. Access was via right REFINED SYRUP OPERATOR and this sitewas clean, dry and [...] for Chest pain. Replaces: nitroGLYcerin 400 mcg/spray [place], Non-Aerosol 0.4 mg Quantity: 90 tablet Refills: [...] Refills: 0 STOPPED Medications nitroGLYcerin 400 mcg/spray [place], Non-Aerosol Commonly known as: NITROLINGUAL Replaced by: [...] of one year. After this time, your secondary school teacher will determine if you need to continue [...] away. Stay on the phone. The emergency wafer machine operator will tell you what to [...] appointments: During 8am-5pm Tuesday through Tuesday call [phone] to speak with a nurse in the cardiology clinic All other times call [phone] and ask to speak to the ammonia operator engagement liaison. Follow up Appointments: PCP Alexia Mtz, ORTHO RN [phone]. Please call to establish a follow up appointment within 1-2 weeks of discharge. Cardiology. Referral to heart failure has been sent. General Instructions None Future Appointments and Orders Future Orders Complete By Expires Referral to Cardiac Rehab [[id number] Custom] As directed Process Instructions: If no [...] of one year. After this time, your secondary school teacher will determine if you need to continue [...] away. Stay on the phone. The emergency wafer machine operator will tell you what to [...] appointments: During 8am-5pm Tuesday through Tuesday call [phone] to speak with a nurse in the cardiology clinic All other times call [phone] and ask to speak to the ammonia operator engagement liaison. Follow up Appointments: PCP Alexia Mtz, ORTHO RN [phone]. Please call to establish a follow up [...] /GI: moving bowels and bladder appropriately. * Toyna Watson RN - 08/03/2024 6:43 PM EST [...] home with 2 NAOMI. 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 [...] Total time: 35 (tef) minutes Time IN/OUT: [id number] ZAIDA DUBOSE PT Pager: [phone] Physical Therapy Inpatient Rehabilitation Department * Yrn Ward MD - 08/03/2024 10:38 AM EST CV HOSPITALIST 2 - [facility] DAILY PROGRESS NOTE Page [phone] to reach a provider 04/04 Admit Date: [...] or before 29-JUL-2024) Lateral injury pattern ACUTE DE / STEMI Abnormal ECG When compared with [...] Compared to the overnight study by the engagement liaison fellow the impella position is stable. 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 [facility] 07/29/24 Conclusions: * One vessel coronary artery disease (LAD) * Mild pulmonary hypertension * Elevated pulmonary capillary wedge pressure * Successful stent insertion of the proximal LAD lesion * See Dual Antiplatelet (DAPT) Recommendations above * Successful impella placement for cardiogenic shock. Telemetry: I have personally reviewed and interpreted the telemetry from the last 24 hours. [facility] Assessment: ASSESSMENT: Korey Montoya is a 74 y.o. male w/ PMH of hypertension, HLD, and BPH who presents for chief concern of chest pain after being found to have ST elevations on EKG. Patient transferred via air ambulance to [facility] on 07/29 for C and LOW to [...] to be determined OT: PCP Alexia Mtz, ORTHO RN [phone] * Zaida Dubose, PT - 08/02/2024 2:08 [...] home with 2 NAOMI. 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 [...] Total time: 37 (eval) minutes Time IN/OUT: 5718-5983 ZAIDA DUBOSE, PT Pager: [phone] Physical Therapy Inpatient Rehabilitation Department * Gagan [...] PCP: Alexia Mtz APRN PCP phone number: [phone] Date of Admission: 07/29/2024 ( Hospital Day [...] 07/29/24 1621 PHART 7.48* 7.44 7.38 7.37 [id number] 29* 29* 34* 36 PO2ART 71* 109* 141* 71* RTO3RPW 20.6 19.4* 19.5* 20.4 VBG (Venous Blood Gas) Recent Labs 07/29/24 1401 PHVEN 7.30* PO2VEN 39 XOG8MPU 20.1* Mixed Venous Sat No results for input(s): K3JMXO7 in the last 168 hours. Objective: Vitals [...] 07/29/24 1621 PHART 7.48* 7.44 7.38 7.37 MQW2KDR 29* 29* 34* 36 PO2ART 71* 109* 141* 71* AEN1BTN 20.6 19.4* 19.5* 20.4 VBG (Venous Blood Gas) Recent Labs 07/29/24 1401 PHVEN 7.30* PO2VEN 39 LEW7JEV 20.1* Mixed Venous Sat No results for input(s): R5SEWN9 in the last 168 hours. Microbiology: Microbiology Results (Last 30 days) Procedure Component Value Units Date/Time Blood culture [[id number]] Collected: 07/29/241607 Lab Status: Preliminary result Specimen: Blood, Venous Updated: 08/01/241700 Blood Culture No growth at 72 hours Blood culture [[id number]] Collected: 07/29/241607 Lab Status: Preliminary result Specimen: Blood, Venous Updated: 08/01/241700 Blood Culture No growth at 72 hours Imaging: Results for orders placed or performed during the hospital encounter of 07/29/24 XR Chest One View (Exam End: 07/29/2024 2:30 PM) Result Value WORKSTATION ID [id number] Impression 1. No pulmonary edema. 2. No pleural effusion. 3. No pneumothorax. Thank you for letting us participate in the care of this patient. If you are a health care provider and have any questions regarding this report, please contact the number below. For patients who have questions please contact the health medicare specialist that requested your imaging first. ( 07/30/24) [...] Compared to the overnight study by the engagement liaison fellow the impella position is stable. The [...] MD Internal Medicine, PGY-1 Cardiology, [facility] 08/02/24 12:45 PM CARDIOLOGY STAFF NOTE I [...] floor. Krystal Parker MD, [facility] Staff Security Test Engineer claims analyst * Gagan Catherine MD - 08/01/2024 11:12 [...] at time of transfer to [facility]. CI initially 1.97, improved to 2.2 After impella. Received about 3 L of fluid during procedural course. Patient initially required norepinephrine 30, epinephrine 10, and vasopressin 0.04 for hemodynamic support, which was weaned upon arrival to [facility] to norepinephrine 20and levo 0.04 N - [...] PCP: Alexia Mtz APRN PCP phone number: [phone] Date of Admission: 07/29/2024 ( Hospital Day [...] 07/29/24 1621 PHART 7.48* 7.44 7.38 7.37 MBG6RCC 29* 29* 34* 36 PO2ART 71* 109* 141* 71* ORN5PHS 20.6 19.4* 19.5* 20.4 VBG (Venous Blood Gas) Recent Labs 07/29/24 1401 PHVEN 7.30* PO2VEN 39 HOH5CIG 20.1* Mixed Venous Sat No results for input(s): F9CSSX4 in the last 168 hours. PA Catheter [...] 07/29/24 1621 PHART 7.48* 7.44 7.38 7.37 IAT1DQV 29* 29* 34* 36 PO2ART 71* 109* 141* 71* XNX4TRZ 20.6 19.4* 19.5* 20.4 VBG (Venous Blood Gas) Recent Labs 07/29/24 1401 PHVEN 7.30* PO2VEN 39 GYJ7KIH 20.1* Mixed Venous Sat No results for input(s): Q9CQEP4 in the last 168 hours. Microbiology: Microbiology Results (Last 30 days) Procedure Component Value Units Date/Time Blood culture [[id number]] Collected: 07/29/24 160 Lab Status: Preliminary result Specimen: Blood, Venous Updated: 07/31/24 170 Blood Culture No growth at 48 hours Blood culture [[id number]] Collected: 07/29/24 1608 Lab Status: Preliminary result Specimen: Blood, Venous Updated: 07/31/24 1701 Blood Culture No growth at 48 hours Imaging: Results for orders placed or performed during the hospital encounter of 07/29/24 XR Chest One View (Exam End: 07/29/2024 2:30 PM) Result Value WORKSTATION ID [id number] Impression 1. No pulmonary edema. 2. No pleural effusion. 3. No pneumothorax. Thank you for letting us participate in the care of this patient. If you are a health care provider and have any questions regarding this report, please contact the number below. For patients who have questions please contact the health medicare specialist that requested your imaging first. ( 07/30/24) [...] Compared to the overnight study by the engagement liaison fellow the impella position is stable. The [...] MD Internal Medicine, PGY-1 Cardiology, [facility] 08/01/24 7:13 AM CARDIOLOGY STAFF NOTE I [...] answered. Krystal Parker MD, [facility] Staff Security Test Engineer claims analyst * Krystal Parker MD - 07/31/2024 1:06 [...] at time of transfer to [facility]. CI initially 1.97, improved to 2.2 After impella. Received about 3 L of fluid during procedural course. Patient initially required norepinephrine 30, epinephrine 10, and vasopressin 0.04 for hemodynamic support, which was weaned upon arrival to [facility] to norepinephrine 20and levo 0.04 N - [...] PCP: Alexia Mtz APRN PCP phone number: [phone] Date of Admission: 07/29/2024 ( Hospital Day [...] 0057 07/29/24 1621 PHART 7.44 7.38 7.37 [id number] 29* 34* 36 PO2ART 109* 141* 71* JEC5LWN 19.4* 19.5* 20.4 VBG (Venous Blood Gas) Recent Labs 07/29/24 1401 PHVEN 7.30* PO2VEN 39 GZG3UCL 20.1* Mixed Venous Sat No results for input(s): U6UABP2 in the last 168 hours. PA Catheter [...] 0057 07/29/24 1621 PHART 7.44 7.38 7.37 YJE4XPA 29* 34* 36 PO2ART 109* 141* 71* TXC8LLZ 19.4* 19.5* 20.4 VBG (Venous Blood Gas) Recent Labs 07/29/24 1401 PHVEN 7.30* PO2VEN 39 VSB6PRZ 20.1* Mixed Venous Sat No results for input(s): I6NIDO2 in the last 168 hours. Microbiology: Microbiology Results (Last 30 days) Procedure Component Value Units Date/Time Blood culture [[id number]] Collected: 07/29/241607 Lab Status: Preliminary result Specimen: Blood, Venous Updated: 07/30/241700 Blood Culture No Growth at 18-24 hrs. Blood culture [[id number]] Collected: 07/29/241607 Lab Status: Preliminary result Specimen: Blood, Venous Updated: 07/30/241700 Blood Culture No Growth at 18-24 hrs. Imaging: Results for orders placed or performed during the hospital encounter of 07/29/24 XR Chest One View (Exam End: 07/29/2024 2:30 PM) Result Value WORKSTATION ID [id number] Impression 1. No pulmonary edema. 2. No pleural effusion. 3. No pneumothorax. Thank you for letting us participate in the care of this patient. If you are a health care provider and have any questions regarding this report, please contact the number below. For patients who have questions please contact the health medicare specialist that requested your imaging first. ( 07/30/24) [...] Compared to the overnight study by the engagement liaison fellow the impella position is stable. The [...] work to optimize volume status while continuing azbtkpk-wrutfb-gkkheeypfb therapies at this time. Obtain comprehensive TTE. [...] at time of transfer to [facility]. CI initially 1.97, improved to 2.2 After impella. Received about 3 L of fluid during procedural course. Patient initially required norepinephrine 30, epinephrine 10, and vasopressin 0.04 for hemodynamic support, which was weaned upon arrival to [facility] to norepinephrine 20and levo 0.04 N - [...] PCP: Yoel Artis APRN PCP phone number: [phone] Date of Admission: 07/29/2024 ( Hospital Day [...] Yesterday: - Admitted to the [facility] - After his LHC, he demonstrated significant [...] 0057 07/29/24 1621 PHART 7.44 7.38 7.37 TFX2XYF 29* 34* 36 PO2ART 109* 141* 71* PCH3JSY 19.4* 19.5* 20.4 VBG (Venous Blood Gas) Recent Labs 07/29/24 1401 PHVEN 7.30* PO2VEN 39 YLZ9UET 20.1* Lactate ( Last 12 hours) 1.3 >> 1.2 Mixed Venous Sat No results for input(s): Y4BHAO4 in the last 168 hours. PA Catheter [...] 0057 07/29/24 1621 PHART 7.44 7.38 7.37 ZYU9TQQ 29* 34* 36 PO2ART 109* 141* 71* FZQ6EHZ 19.4* 19.5* 20.4 VBG (Venous Blood Gas) Recent Labs 07/29/24 1401 PHVEN 7.30* PO2VEN 39 IAO6QMM 20.1* Mixed Venous Sat No results for input(s): S0PBES0 in the last 168 hours. Microbiology: Microbiology Results (Last 30 days) Procedure Component Value Units Date/Time Blood culture [[id number]] Collected: 07/29/24 1608 Lab Status: In process Specimen: Blood, Venous Updated: 07/29/24 162 Blood culture [[id number]] Collected: 07/29/24 1608 Lab Status: In process Specimen: Blood, Venous Updated: 07/29/24 1615 Imaging: Results for orders placed or performed during the hospital encounter of 07/29/24 XR Chest One View (Exam End: 07/29/2024 2:30 PM) Result Value WORKSTATION ID [id number] Impression 1. No pulmonary edema. 2. No pleural effusion. 3. No pneumothorax. Thank you for letting us participate in the care of this patient. If you are a health care provider and have any questions regarding this report, please contact the number below. For patients who have questions please contact the health medicare specialist that requested your imaging first. Medications [...] [facility] for further management and [facility] demo nstrated 100% occlusion. No significant RCA, LMCA, or LCX disease. LOW placed in LAD with some residual distal disease meriting placement of overlapping distal stent. TTE showed apical akinesis and inferior hypokinesis with EF 20%. RHC showed elevated filling pressures. Impella placed and P-level 6 at time of transfer to [facility]. CI initially 1.97, improved to 2.2 After impella. Received about 3 L of fluid during procedural course. Patient initially required norepinephrine, epinephrine, and vasopressin for hemodynamic support, which was weaned upon arrival to [facility] to norepinephrine 20 and levo 0.04 (epinephrine [...] (WRVU 4.57) performed by Brandan Mcgovern MD [facility] ENDOSCOPY Significant Family History: Family History Problem [...] mouth. Past Week nitroGLYcerin (NITROLINGUAL) 400 mcg/spray [place], Non-Aerosol 1 spray to anus for proctalgia [...] 3.5 guiding catheter and a 3.[address] 20 Mhz using Manual pullback. Imaging [...] atmospheres. A premounted 3.00 x 22 mm [place] (LOW) was deployed with a maximum inflation [...] atmospheres. A premounted 3.00 x 08 mm [place] (LOW) was deployed with a maximum inflation [...] a limited study performed by a fellow engagement liaison to evaluate for cardiogenic shock with impella [...] Compared to the overnight study by the engagement liaison fellow the impella position is stable. The [...] PCP: Yoel Artis APRN PCP phone number: [phone] Date of Admission: 07/29/2024 ( Hospital Day [...] (WRVU 4.57) performed by Brandan Mcgovern MD [facility] ENDOSCOPY Family History Family History Problem Relation [...] Blood Gas) No results for input(s): PHART, KTC5OHS, PO2ART, GAF7SKW, LACTATEVEN, ORA0AYT, PFRATIOART2 in the last 168 hours. VBG (Venous Blood Gas) Recent Labs 07/29/24 1401 PHVEN 7.30* PO2VEN 39 HRA5IUT 20.1* Mixed Venous Sat No results for input(s): F5YFVV1 in the last 168 hours. PA Catheter [...] Blood Gas) No results for input(s): PHART, FPJ1IHX, PO2ART, KTU6HHT, LACTATEVEN, RUT3HJP, PFRATIOART2 in the last 168 hours. VBG (Venous Blood Gas) Recent Labs 07/29/24 1401 PHVEN 7.30* PO2VEN 39 NWS6WZP 20.1* Mixed Venous Sat No results for input(s): Y0AWMR3 in the last 168 hours. Microbiology: Microbiology [...] [facility]. Found to have 100% occlusion of LAD for which he underwent LOW to LAD.Otherwise no other significant vessel disease. Fahad is currently hemodynamically tenuous but improving upon admission to [facility], requiring hemodynamic support with norepinephrine and vasopressin at time of admission along with mechanical support with Impella device. Reassuringly, he demonstrates decreasing pressor requirements since admission to [facility], with epinephrine completely weaned. He does demonstrate [...] MD Internal Medicine, PGY-3 Cardiology, [facility] 07/29/24 3:14 PM Cardiology Attending Note I [...] MD, FACP, FACC Section of Cardiovascular Medicine [facility] Assignment Clerksewing machine tester [facility] [employer] [facility] This patient meets or has met [...] to the planned procedure. Hand Hygiene: The die finisher forging did perform hand hygiene prior to arterial [...] ease. Good wave form. Ivan Hernandez MD Teaching Pastor Associated attestation - Rolando Yeh MD - [...] Fahad was quite active prior to his DE. He had even started running (to help [...] No Patient is insured through: Primary Insurance: [facility] MANAGED MEDICARE Payor: [facility] MANAGED MEDICARE / Plan: [facility] MANAGED MEDICARE COMPLETE / Product [...] Date of Discharge: 08/04/2024 Gaby Wong RN, Pager-[phone] * Initial Assessments - Char Meza, OT [...] (WRVU 4.57) performed by Brandan Mcgovern MD [facility] ENDOSCOPY Social History: Patient lives with his . Home Setup: 2 NAOMI to a 1 level home. DME: none Baseline ADL/Mobility: Independent with ADLs and IADLs. Enjoys walking. able assist as needed. Precautions/Special Considerations: Full code. Risk for falls. Subjective: I have access to an [employer] weight gym. (Educated to wait for MD [...] evaluation only Total Minutes, Occupational Therapy: 14 ([id number] (evaluation)) 2017 OT Evaluation Code Rationale: Diagnosis [...] and measurable assessment of functional outcome. Pager: [phone] Char Meza OT 08/03/2024 Occupational Therapy Rehabilitation [...] (Interventions Implemented as Appropriate) Flowsheets (Taken 08/01/2024 2417) Outcome Summary: A+O, no pain. NSR. MAP [...] Procedure Note: Patient Name: Korey Montoya : [id number] MR#: [id number] Case Date: 07/31/2024 Rn Camp: Surgeons and Role: * Maldonado Luis MD - Primary * Quinten Charles PA - Physician Clinical Athletic Instructor Preoperative diagnosis: shock, impella Postoperative diagnosis: * same * Procedure(s) performed: Impella removal form right REFINED SYRUP OPERATOR Access: Right REFINED SYRUP OPERATOR A time-out was conducted prior to [...] surrogate would be surrogate decision maker per [place] surrogate decision making law. (Only good for 180 days) Any patient receiving care in [place] must abide by [place] law. The hierarchy for surrogate decision making [...] The agent with financial power of deputy commonwealth's attorney or a conservator appointed in accordance [...] homeless or living in a fdc (including now)?: No In the past 12 months has the [employer] gas, oil, or water Slidely threatened to shut off services in your [...] Address confirmed as: Mailing Address: [facility] [address] [address] Physical Address: [address], [place] Social & Family Supports: All names [...] points: Addiction likely Health/Prescription Coverage: Primary Insurance: [facility] [employer] MEDICARE Payor: [facility] [employer] MEDICARE / Plan: [facility] [employer] MEDICARE COMPLETE / Product Type: *No Product type* / Secondary Insurance: N/A ; Prescription Coverage: Yes Preferred Pharmacy: [address] [address] Status: Patient is a : No Primary Care Provider confirmed: Alexia Mtz, ORTHO RN [phone] Patient/Caregiver Goals of Treatment: return home Potential [...] 07/29/2024 6:25 PM EST Pt arrived from labeling specialist @ 1400. CXR and EKG completed. Impella [...] Procedure Note: Patient Name: Korey Montoya : [id number] MR#: [id number] Case Date: 07/29/2024 Rn Camp: Surgeons and Role: * Vahe Marvin MD - Primary * Susannah Watts PA - Physician Clinical Athletic Instructor Preoperative diagnosis: STEMI Postoperative diagnosis: * STEMI, LAD Artery * * Cardiogenic Shock * Procedure(s) performed: [facility] Coronary angiogram Stent insertion coronary IVUS coronary Venous line insert [facility] [place] Colette Catheter Vascular closure device Ventricular assist [...] x 22 mm to 14 deonna [place] with LIZ 3 flow. Residual distal disease at distal stent, overlapping distal stent was inserted with 3.0 x 8 mm [place]. Systolic's in the 80's sustained. Patient re [...] AM EST Office Visit Cardiology at [address] [address] Mushtaq Murphy, ORTHO RN Scheduled Orders Name Type Priority Associated Diagnoses [...] 0.04 x10(3)/mc L 08/04/2024 6:39 AM EST [facility] Blood VENOUS BLOOD SPECIMEN / Unknown Venipuncture / Unknown 08/04/2024 6:08 AM EST 08/04/2024 6:19 AM EST Bridgette Stauffer MD HEMATOLOGY ORDERABLE S Performing Organization Address City/[facility]/ZIP Co de Phone Number [facility] [place] [address] * Magnesium (08/04/2024 6:08 AM EST) Magnesium 0.85 0.69 - 1.07 mMol/L 08/04/2024 7:07 AM [facility] Blood VENOUS BLOOD SPECIMEN / Unknown Venipuncture / Unknown 08/04/2024 6:08 AM EST 08/04/2024 6:19 AM EST Bridgette Stauffer MD CHEMISTRY ORDERABLES Performing Organization Address City/[facility]/ZIP Co de Phone Number [facility] [place] [address] * Basic Metabolic Panel (08/04/2024 6:08 AM [...] [facility] Calcium 8.5 8.5 - 10.5 mg/dL 08/04/2024 7:07 AM [facility] Est Glomerular Filtration Rate - Male 74 mL/min/1. 73 m?? 08/04/2024 7:07 AM [facility] Stauffer MD CHEMISTRY ORDERABLES Performing Organization Address City/State/[facility] Co de Phone Number [facility] [place] [address] * (ABNORMAL) CBC (with Diff) (08/03/2024 5:16 AM EST) White Blood Cell 7.85 4.00 - 9.50 x10(3)/mc L 08/03/2024 5:29 AM [facility] Red Blood Cell 4.43(L) 4.58 - 5.54 x10(6)/mc L 08/03/2024 5:29 AM [facility] Hemoglobin 11.8(L) 13.7 - 16.5 g/dL 08/03/2024 5:29 AM [facility] Hematocrit 35.9(L) 40.5 - 48.5 [...] % 9.0 % 08/03/2024 5:29 AM EST [facility] Monocyte Absolute 0.71 0.30 - 0.90 x10(3)/mc L 08/03/2024 5:29 AM [facility] Eos % 1.7 % 08/03/2024 5:29 AM [facility] Eos Absolute 0.13 0.00 - 0.40 x10(3)/mc L 08/03/2024 5:29 AM EST [facility] Basophil % 0.4 % 08/03/2024 [...] HEMATOLOGY ORDERABLE S [facility] [place] [address] * Magnesium (08/03/2024 5:16 AM EST) Magnesium 0.89 0.69 - 1.07 mMol/L 08/03/2024 5:56 AM EST [facility] Blood VENOUS BLOOD SPECIMEN / Unknown Venipuncture / Unknown 08/03/2024 5:16 AM EST 08/03/2024 5:23 AM EST Bridgette Stauffer MD CHEMISTRY ORDERABLES [facility] [place] [address] * (ABNORMAL) Basic Metabolic Panel (08/03/2024 5:16 [...] Stauffer MD CHEMISTRY ORDERABLES Performing Organization Address [facility] Co de Phone Number [facility] [place] [address] * POC, GLUCOSE (08/02/2024 7:47 AM EST) [...] CARE TEST O RDERABLES Performing Organization Address [facility] Co de Phone Number [facility] [place] [address] * (ABNORMAL) CBC (with Diff) (08/02/2024 4:20 [...] 0.40 x10(3)/mc L 08/02/2024 4:50 AM EST [facility] Basophil % 0.4 % 08/02/2024 4:50 AM EST [facility] Baso Absolute <0.04 0.00 - 0.10 x10(3)/mc L 08/02/2024 4:50 AM [facility] Immature Gran % 0.4 % 4:50 AM EST [facility] Immature Gran Absolute <0.04 0.00 - 0.04 x10(3)/mc L 08/02/2024 4:50 AM [facility] Blood VENOUS BLOOD SPECIMEN / Unknown Venipuncture / Unknown 08/02/2024 4:20 AM EST 08/02/2024 4:37 AM EST Bridgette Stauffer MD HEMATOLOGY ORDERABLE S Performing Organization Address City/[facility]/ZIP Co de Phone Number [facility] [place] [address] * Magnesium (08/02/2024 4:20 AM EST) Pathologist [facility] [place] Magnesium 0.79 0.69 - 1.07 mMol/L 08/02/2024 5:06 AM [facility] Blood VENOUS BLOOD SPECIMEN / Unknown Venipuncture / Unknown 08/02/2024 4:20 AM EST 08/02/2024 4:37 AM EST Bridgette Stauffer MD CHEMISTRY ORDERABLES [facility] [place] [address] * (ABNORMAL) Basic Metabolic Panel (08/02/2024 4:20 [...] MD CHEMISTRY ORDERABLES [facility] [place] [address] * Potassium (08/01/2024 8:39 PM EST) Potassium 4.0 3.5 - 5.0 mMol/L 08/01/2024 9:21 PM EST [facility] Blood VENOUS BLOOD SPECIMEN / Unknown Venipuncture / Unknown 08/01/2024 8:39 PM EST 08/01/2024 8:51 PM EST Jay Silverio MD CHEMISTRY ORDERABL ES Performing Organization Address City/[facility]/ZIP Co de Phone Number [facility] [place] [address] * POC, GLUCOSE (08/01/2024 8:35 PM EST) Glucometer, POC 112 65 - 199 mg/dL 08/01/2024 8:36 PM EST [facility] Comment:Supplemental ranges: <140 mg/dL before meals <180 mg/dL all other times of the day. Blood CAPILLARY BLOOD / Unknown 08/01/2024 8:35 PM EST 08/01/2024 8:36 PM EST Krystal Parker MD POINT OF CARE TEST O RDKAY Performing Organization Address [facility] Co de Phone Number [facility] [place] [address] * POC, GLUCOSE (08/01/2024 4:55 PM EST) Glucometer, POC 99 65 - 199 mg/dL 08/01/2024 4:56 PM EST [facility] Comment:Supplemental ranges: <140 mg/dL before meals <180 mg/dL all other times of the day. Blood CAPILLARY BLOOD / Unknown 08/01/2024 4:55 PM EST 08/01/2024 4:56 PM EST Krystal Parker MD POINT OF CARE TEST O JOSH Performing Organization Address City/[facility]/ZIP Co de Phone Number [facility] [place] [address] * POC, GLUCOSE (08/01/2024 12:42 PM EST) Glucometer, POC 130 65 - 199 mg/dL 08/01/2024 12:43 PM EST [facility] Comment:Supplemental ranges: <140 mg/dL before meals <180 mg/dL all other times of the day. Blood CAPILLARY BLOOD / Unknown 08/01/2024 12:42 PM EST 08/01/2024 12:43 PM EST Krystal Parker MD POINT OF CARE TEST O JOSH [facility] [place] [address] * (ABNORMAL) Cooximetry, POC (08/01/2024 10:45 AM [...] TEST O RDERASHAY [facility] [place] [address] * Potassium (08/01/2024 8:20 AM EST) [facility] Potassium 4.0 3.5 - 5.0 mMol/L 08/01/2024 10:17 AM EST [facility] Blood ARTERIAL BLOOD / Unknown Venipuncture / Unknown 08/01/2024 8:20 AM EST 08/01/2024 8:30 AM EST Jay Silverio MD CHEMISTRY ORDERABL ES Performing Organization Address City/[facility]/ZIP Co de Phone Number [facility] [place] [address] * POC, GLUCOSE (08/01/2024 7:44 AM EST) [...] TEST O RDERABLES [facility] [place] [address] * (ABNORMAL) CBC (with Diff) (08/01/2024 4:18 AM EST) [facility] White Blood Cell 8.51 4.00 - 9.50 x10(3)/mc L 08/01/2024 4:53 AM EST [facility] Red Blood Cell 4.12(L) 4.58 - 5.54 x10(6)/mc L 08/01/2024 4:53 AM EST [facility] Hemoglobin 11.2(L) 13.7 - 16.5 g/dL 08/01/2024 4:53 AM EST [facility] Hematocrit 33.8(L) 40.5 - [...] HEMATOLOGY ORDERABLE S [facility] [place] [address] * Magnesium (08/01/2024 4:18 AM EST) Magnesium 0.74 0.69 - 1.07 mMol/L 08/01/2024 5:00 AM EST [facility] Blood VENOUS BLOOD SPECIMEN / Unknown Venipuncture / Unknown 08/01/2024 4:18 AM EST 08/01/2024 4:29 AM EST Bridgette Stauffer MD CHEMISTRY ORDERABLES [facility] [place] [address] * (ABNORMAL) Basic Metabolic Panel (08/01/2024 4:18 [...] Stauffer MD CHEMISTRY ORDERABLES Performing Organization Address [facility] de Phone Number [facility] [place] [address] * POC, GLUCOSE (07/31/2024 8:41 PM EST) [facility] Signature Glucometer, POC 73 65 - 199 mg/dL 07/31/2024 8:41 PM EST [facility] Comment:Supplemental ranges: <140 mg/dL before meals <180 mg/dL all other times of the day. Blood CAPILLARY BLOOD / Unknown 07/31/2024 8:41 PM EST 07/31/2024 8:41 PM EST Krystal Parker MD POINT OF CARE TEST O RDERABLES Performing Organization Address [facility] Phone Number [facility] [place] [phone] * CARDIAC CATHETERIZATION (07/31/2024 5:53 PM EST) Anatomical Region Laterality Modality Other Narrative 08/01/2024 12:37 PM EST ?[facility] ? Cardiac Catheterization/Intervention Report ? Patient Name: Korey Montoya ? Procedure Date: 07/31/2024 ? A #: [id number] ? Primary Physician: Maldonado Luis ? Case #: [id number] ? File Name: [id number] ? Catheterization Order Number: [id number] ? [facility] ? Final Report [place], [place] ? Patient Name: ? Korey P. Montoya ?ID#: ?[id number] ? : ?1950 ? Procedure Date: ? [...] ? Comments: ?Impella removed from the right REFINED SYRUP OPERATOR with deployment of Perclose and ?Angioseal. [...] Procedure Note Maldonado Luis MD - 08/01/2024 [facility] Cardiac Catheterization/Intervention Report Patient Name: Korey MontoyaToby Procedure Date: 07/31/2024 A #: [id number] Primary Physician: Maldonado Luis Case #: [id number] File Name: [id number] Catheterization Order Number: [id number] [facility] FinalReport [place], [place] Patient Name: Korey Montoya ID#:[id number] :1950 Procedure Date: July 31, 2024 Case [...] was designated as ASA Class IV. The [facility] clinical frailtyscale is 4: Vulnerable. Diagnostic [...] procedures. Comments: Impella removed from the right REFINED SYRUP OPERATOR with deployment of Perclose and Angioseal. [...] TEST O RDERABLES [facility] [place] [phone] * (ABNORMAL) Blood Gas, Arterial POC (07/31/2024 8:29 AM EST) [facility] Signature pH, Arterial 7.48(H) 7.35 - [...] TEST O RDERABLES [facility] [place] [address] * POC, GLUCOSE (07/31/2024 7:47 AM EST) Pathologist [facility] [place] Glucometer, POC 82 65 - 199 mg/dL 07/31/2024 7:53 AM [facility] Comment:Supplemental ranges: <140 mg/dL before meals <180 mg/dL all other times of the day. Blood CAPILLARY BLOOD / Unknown 07/31/2024 7:47 AM EST 07/31/2024 7:53 AM EST Krystal Parker MD POINT OF CARE TEST O RDERABLES [facility] [place] [address] * (ABNORMAL) CBC (with Diff) (07/31/2024 1:08 [...] Immature Gran % 0.2 % 1:28 AM [facility] Immature Gran Absolute <0.04 0.00 - 0.04 x10(3)/mc L 07/31/2024 1:28 AM [facility] Blood VENOUS BLOOD SPECIMEN / Unknown Venipuncture / Unknown 07/31/2024 1:08 AM EST 07/31/2024 1:18 AM EST Bridgette Stauffer MD HEMATOLOGY ORDERABLE S Performing Organization Address [facility] Co de Phone Number [facility] [place] [address] * Magnesium (07/31/2024 1:08 AM EST) Pathologist [facility] [place] Magnesium 0.89 0.69 - 1.07 mMol/L 07/31/2024 1:46 AM [facility] Blood VENOUS BLOOD SPECIMEN / Unknown Venipuncture / Unknown 07/31/2024 1:08 AM EST 07/31/2024 1:18 AM EST Bridgette Stauffer MD CHEMISTRY ORDERABLES Performing Organization Address City/[facility] Co de Phone Number [facility] [place] [address] * (ABNORMAL) Basic Metabolic Panel (07/31/2024 1:08 [...] - 5.0 mMol/L 07/31/2024 1:46 AM EST [facility] Chloride 110(H) 98 - 107 mMol/L 07/31/2024 1:46 AM [facility] Carbon Dioxide 24 22 - [...] MD CHEMISTRY ORDERABLES [facility] [place] [address] * (ABNORMAL) Hepatic Function Panel (07/31/2024 1:08 [...] ORDERABLES Performing Organization Address City/[facility] Co de Phone Number [facility] [place] [address] * POC, GLUCOSE (07/30/2024 8:03 PM EST) Glucometer, POC 86 65 - 199 mg/dL 07/30/2024 8:03 PM [facility] Comment:Supplemental ranges: <140 mg/dL before meals <180 mg/dL all other times of the day. Blood CAPILLARY BLOOD / Unknown 07/30/2024 8:03 PM EST 07/30/2024 8:03 PM EST Krystal Parker MD POINT OF CARE TEST O RDERABLES Performing Organization Address City/[facility]/ZIP Co de Phone Number [facility] [place] [address] * Potassium (07/30/2024 8:03 PM EST) Potassium 3.8 3.5 - 5.0 mMol/L 07/30/2024 9:13 PM EST [facility] Blood VENOUS BLOOD SPECIMEN / Unknown Venipuncture / Unknown 07/30/2024 8:03 PM EST 07/30/2024 8:22 PM EST Jay Silverio MD CHEMISTRY ORDERABL ES Performing Organization Address [facility] Co de Phone Number [facility] [place] [address] * POC, GLUCOSE (07/30/2024 6:23 PM EST) Glucometer, POC 93 65 - 199 mg/dL 07/30/2024 6:24 PM EST [facility] Comment:Supplemental ranges: <140 mg/dL before meals <180 mg/dL all other times of the day. Blood CAPILLARY BLOOD / Unknown 07/30/2024 6:23 PM EST 07/30/2024 6:24 PM EST Krystal Parker MD POINT OF CARE TEST O JOSH Performing Organization Address [facility] Co de Phone Number [facility] [place] [address] * POC, GLUCOSE (07/30/2024 5:08 PM EST) Glucometer, POC 78 65 - 199 mg/dL 07/30/2024 5:08 PM EST [facility] Comment:Supplemental ranges: <140 mg/dL before meals <180 mg/dL all other times of the day. Blood CAPILLARY BLOOD / Unknown 07/30/2024 5:08 PM EST 07/30/2024 5:08 PM EST Krystal Parker MD POINT OF CARE TEST O JOSH Performing Organization Address [facility] Co de Phone Number [facility] [place] [address] * (ABNORMAL) Phosphorus (07/30/2024 3:08 PM EST) Phosphorus 2.1(L) 2.5 - 4.5 mg/dL 07/30/2024 3:58 PM EST [facility] Blood VENOUS BLOOD SPECIMEN / Unknown Venipuncture / Unknown 07/30/2024 3:08 PM EST 07/30/2024 3:12 PM EST Jay Silverio MD CHEMISTRY ORDERABL ES Performing Organization Address City/[facility]/ZIP Co de Phone Number [facility] [place] [address] * Magnesium (07/30/2024 3:08 PM EST) Magnesium 0.90 0.69 - 1.07 mMol/L 07/30/2024 3:58 PM EST [facility] Blood VENOUS BLOOD SPECIMEN / Unknown Venipuncture / Unknown 07/30/2024 3:08 PM EST 07/30/2024 3:12 PM EST Jay Silverio MD CHEMISTRY ORDERABL ES Performing Organization Address City/[facility]/ZIP Co de Phone Number [facility] [place] [address] * (ABNORMAL) Basic Metabolic Panel (07/30/2024 3:08 PM EST) Glucose 105 65 - 199 mg/dL 07/30/2024 4:17 PM EST [facility] Comment:Glucose Concentratio n >=200 mg/dL plus symptoms is consistent with Diabetes Mellitus. Blood Urea Nitrogen 13 10 - 20 mg/dL 07/30/2024 4:17 PM EST [facility] Creatinine 1.01 0.80 - 1.50 mg/dL 07/30/2024 4:17 PM EST [facility] Sodium 141 135 - 145 mMol/L 07/30/2024 4:17 PM [facility] Potassium 3.4(L) 3.5 - 5.0 mMol/L 07/30/2024 4:17 PM [facility] Chloride 109(H) 98 - 107 mMol/L 07/30/2024 4:17 PM EST [facility] Carbon Dioxide 21(L) 22 - 31 mMol/L 07/30/2024 4:17 PM EST [facility] Anion Gap 11 5 - 15 mMol/L 07/30/2024 4:17 PM EST [facility] Calcium 7.9(L) 8.5 - 10.5 mg/dL 07/30/2024 4:17 PM EST [facility] Est Glomerular Filtration Rate - Male 79 mL/min/1. 73 m?? 07/30/2024 4:17 PM EST [facility] Comment: [...] de Phone Number [facility] [place] [address] * ECHO LMTD W CONTRAST W LMTD SPEC DOPP COLOR DOPP (07/30/2024 11:42 AM EST) Anatomical Region Laterality Modality Cardiac Other 07/30/2024 10:2 2 AM EST Narrative 07/30/2024 12:34 PM EST [address] [place] [address] ? Echocardiogram Report Name: KOREY MONTOYA Kyrie ? Study Date: 07/30/2024 10:22 AMBP: 124/66 mmHg : 1950 ? Height: 168 cm ? Account: [id number] Age: 74 yrs ? Weight: 65 kg Gender: Male ?BSA: 1.7 m2 Ordering Physician: Jay Silverio MD Referring Physician: CHAPARRO FERRERA Performed By: OMERO Millan Reason For Study: ST elevation myocardial infarction involving left anterior descending (LAD) coronary artery Interpreting Fellow: Ivan Hernandez. Exam Location: [facility]. Interpretation Summary Left ventricle [...] Compared to the overnight study by the engagement liaison fellow the impella position is stable. 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 Procedure Limited - 44551. Image enhancement Definity was used for both [...] Banda MD - 07/30/[address] [place], [place] [id number] Echocardiogram Report Name: LARA KOREY Kyrie Study Date: 410:22 AMBP: 124/66 mmHg : 1950 Height: 168 cm Account: [id number] Age: 74 yrs Weight: 65 kg Gender: Male BSA: 1.7 m2 Ordering Physician: Jay Silverio MD Referring Physician: CHAPARRO FERRERA Performed By: OMERO Millan Reason For Study: ST elevation myocardial infarction involving leftanterior descending (LAD) coronary artery Interpreting Fellow: Ivan Hernandez. Exam Location: [facility]. Interpretation Summary Left ventricle [...] Compared to the overnight study by the engagement liaison fellow the impella positionis stable. The global left ventricular systolic function has improvedpredominantly via recruitment outside the LAD territory which remains akinetic. Procedure Limited - 31246. Image enhancement Definity was used for both [...] * POC, GLUCOSE (07/30/2024 11:17 AM EST) [facility] Glucometer, POC 97 65 - 199 mg/dL 07/30/2024 11:17 AM EST [facility] Comment:Supplemental ranges: <140 mg/dL before meals <180 mg/dL all other times of the day. Blood CAPILLARY BLOOD / Unknown 07/30/2024 11:17 AM EST 07/30/2024 11:17 AM EST Jay Silverio MD POINT OF CARE TEST ORDERABLES Performing Organization Address City/State/[facility] Co de Phone Number [facility] [place] [address] * (ABNORMAL) Blood Gas, Arterial POC (07/30/2024 8:16 AM EST) [facility] Signature pH, Arterial 7.44 7.35 - [...] CARE TEST ORDERABLES [facility] [place] [address] * (ABNORMAL) Troponin - Single (07/30/2024 8:09 [...] troponin value can be found in the [facility] Test Catalog Troponin - https://[facility]-.testcatalog.org/catalogs/565/files/30684 Reference: Fourth Phoenix Definition of Myocardial Infarction. Journal of the [employer] 2018;72:1544-5784 Blood VENOUS BLOOD SPECIMEN / Unknown Venipuncture / Unknown 07/30/2024 8:09 AM EST 07/30/2024 8:26 AM EST Jay Silverio MD CHEMISTRY ORDERABL ES [facility] [place] [address] * POC, GLUCOSE (07/30/2024 7:40 AM EST) Pathologist [facility] Glucometer, POC 111 65 - 199 mg/dL 07/30/2024 7:40 AM EST [facility] Comment:Supplemental ranges: <140 mg/dL before meals <180 mg/dL all other times of the day. Blood CAPILLARY BLOOD / Unknown 07/30/2024 7:40 AM EST 07/30/2024 7:40 AM EST Jay Silverio MD POINT OF CARE TEST ORDERABLES [facility] [place] [address] * (ABNORMAL) CBC (with Diff) (07/30/2024 2:11 [...] HEMATOLOGY ORDERABLE S [facility] [place] [address] * Magnesium (07/30/2024 2:11 AM EST) Magnesium 1.01 0.69 - 1.07 mMol/L 07/30/2024 2:51 AM [facility] Blood VENOUS BLOOD SPECIMEN / Unknown Venipuncture / Unknown 07/30/2024 2:11 AM EST 07/30/2024 2:22 AM EST Bridgette Stauffer MD CHEMISTRY ORDERABLES Performing Organization Address City/[facility] Co de Phone Number [facility] [place] [address] * (ABNORMAL) Basic Metabolic Panel (07/30/2024 2:11 [...] - 15 mMol/L 07/30/2024 2:51 AM EST [facility] Calcium 7.7(L) 8.5 - 10.5 mg/dL 07/30/2024 2:51 AM EST [facility] Est Glomerular Filtration Rate - Male 91 mL/min/1. 73 m?? 07/30/2024 2:51 AM EST [facility] Comment: [...] MD CHEMISTRY ORDERABLES [facility] [place] [address] * (ABNORMAL) Cooximetry, POC (07/30/2024 1:00 AM EST) pO2, Coox 28 mmHg 07/30/2024 1:03 AM EST [facility] Hemoglobin, Coox 12.7(L) 13.7 - 16.5 g/dL 07/30/2024 1:03 AM EST [facility] Oxyhemoglobin, Coox 54.9 % 07/30/2024 1:03 AM EST [facility] Carboxyhemoglo bin, Coox 1.0 % [...] CARE TEST ORDERABLES [facility] [place] [address] * (ABNORMAL) Blood Gas, Arterial POC (07/30/2024 [...] CARE TEST ORDERABLES [facility] [place] [address] * (ABNORMAL) Troponin - Single (07/29/2024 10:31 [...] troponin value can be found in the [facility] Test Catalog Troponin - https://[facility].testcatalog.org/catalogs/565/files/06099 Reference: Fourth [place] Definition of Myocardial Infarction. Journal of the [employer] 2018;72:2264-1661 Blood VENOUS BLOOD SPECIMEN / Unknown Venipuncture / Unknown 07/29/2024 10:31 PM EST 07/29/2024 10:36 PM EST Yrn Ward MD CHEMISTRY ORDERABL ES Performing Organization Address City/[facility]/ZIP Co de Phone Number [facility] [place] [address] * Potassium (07/29/2024 8:11 PM EST) Potassium 4.1 3.5 - 5.0 mMol/L 07/29/2024 8:52 PM EST [facility] Blood VENOUS BLOOD SPECIMEN / Unknown Venipuncture / Unknown 07/29/2024 8:11 PM EST 07/29/2024 8:16 PM EST Jay Silverio MD CHEMISTRY ORDERABL ES [facility] [place] [address] * (ABNORMAL) Troponin - Single (07/29/2024 8:11 [...] troponin value can be found in the [facility] Test Catalog Troponin - https://[facility]-.testcatalog.org/catalogs/565/files/88670 Reference: Fourth [place] Definition of Myocardial Infarction. Journal of the [employer] 2018;72:1719-4296 Blood VENOUS BLOOD SPECIMEN / Unknown Venipuncture / Unknown 07/29/2024 8:11 PM EST 07/29/2024 8:16 PM EST Jay Silverio MD CHEMISTRY ORDERABL ES Performing Organization Address City/State/[facility] Co de Phone Number [facility] [place] [address] * (ABNORMAL) Phosphorus (07/29/2024 8:11 PM EST) Phosphorus 2.1(L) 2.5 - 4.5 mg/dL 07/29/2024 8:52 PM EST [facility] Blood VENOUS BLOOD SPECIMEN / Unknown Venipuncture / Unknown 07/29/2024 8:11 PM EST 07/29/2024 8:16 PM EST Jay Silverio MD CHEMISTRY ORDERABL ES Performing Organization Address [facility] Co de Phone Number [facility] [place] [address] * POC, GLUCOSE (07/29/2024 8:09 PM EST) Glucometer, POC 142 65 - 199 mg/dL 07/29/2024 8:09 PM EST [facility] Comment:Supplemental ranges: <140 mg/dL before meals <180 mg/dL all other times of the day. Blood CAPILLARY BLOOD / Unknown 07/29/2024 8:09 PM EST 07/29/2024 8:09 PM EST Jay Silverio MD POINT OF CARE TEST ORDERABLES Performing Organization Address [facility] Co de Phone Number [facility] [place] [address] * ABORH RECHECK (07/29/2024 6:43 PM EST) Pathologist [facility] [place] ABORH Recheck AB POSITIVE 07/29/2024 10:13 PM EST [facility] Blood VENOUS BLOOD SPECIMEN / Unknown Venipuncture / Unknown 07/29/2024 6:43 PM EST 07/29/2024 7:15 PM EST Jay Silverio MD BLOOD BANK LAB ORD ERABLES Performing Organization Address [facility] Co de Phone Number [facility] [place] [address] * POC, GLUCOSE (07/29/2024 5:57 PM EST) [...] [facility]/ZIP Co de Phone Number [facility] [place] [address] * Type and screen ([facility]/JONG/MAGALIE) (07/29/2024 5:56 PM EST) [facility] ABORH Type AB POSITIVE 07/29/2024 9:44 PM EST [facility] PATIENT HISTORY Not Found 07/29/2024 9:44 PM EST [facility] Expires at [id number] on: 08/01/2024 07/29/2024 9:44 PM EST [facility] ANTIBODY SCREEN AUTOMATED Negative 07/29/2024 9:44 PM EST [facility] T&S only valid at [facility] 07/29/2024 9:44 PM EST [facility] Blood VENOUS BLOOD SPECIMEN / Unknown Venipuncture / Unknown 07/29/2024 5:56 PM EST 07/29/2024 6:07 PM EST Narrative [facility] - 07/29/2024 9:44 PM EST This Type and Screen result is only valid at the [facility] Jay Silverio MD BLOOD BANK LAB ORD ERABLES Performing Organization Address City/[facility] Co de Phone Number [facility] [place] [address] * (ABNORMAL) Troponin - Single (07/29/2024 4:52 [...] troponin value can be found in the [facility] Test Catalog Troponin - https://[email or web address].org/catalogs/565/files/98460 Reference: Fourth Phoenix Definition of Myocardial Infarction. Journal of the [employer] College [employer] 2018;72:6707-9070 Blood VENOUS BLOOD SPECIMEN / Unknown Venipuncture / Unknown 07/29/2024 4:52 PM EST 07/29/2024 4:57 PM EST Jay Silverio MD CHEMISTRY ORDERABL ES Performing Organization Address [facility]/ZIP Co de Phone Number [facility] [place] [address] * EKG 12 Lead (07/29/2024 4:21 PM EST) Ventricular rate 72 BPM MUSE SYSTEM Atrial Rate 72 BPM MUSE SYSTEM P-R Interval 168 ms MUSE SYSTEM QRS Duration 82 ms MUSE SYSTEM Q-T Interval 392 ms MUSE SYSTEM QTC Calculated (Bezet) 429 ms MUSE SYSTEM Calculated P [place] 71 degrees MUSE SYSTEM Calculated R [place] 77 degrees MUSE SYSTEM Calculated T [place] 28 degrees MUSE SYSTEM INTERPRETATION Sinus rhythm with Premature supraventricular complexes and Occasional Premature ventricular complexes Low voltage QRS 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) Lateral injury pattern ACUTE DE / STEMI Abnormal ECG When compared with [...] - 2.2 mmol/L 07/29/2024 4:22 PM EST [facility] Fraction of Inspired Oxygen [...] [facility]/ZIP Co de Phone Number [facility] [place] [address] * POC, GLUCOSE (07/29/2024 4:19 PM EST) [...] CARE TEST ORDERABLES [facility] [place] [address] * Blood culture (07/29/2024 4:08 PM EST) Blood Culture No growth at 120 hours 08/03/2024 5:01 PM EST [facility] Blood VENOUS BLOOD SPECIMEN / Unknown Venipuncture / Unknown 07/29/2024 4:08 PM EST 07/29/2024 4:15 PM EST Jay Silverio MD MICROBIOLOGY - BLO OD ORDERABLES Performing Organization Address [facility] Co de Phone Number [facility] [place] [address] * Blood culture (07/29/2024 4:08 PM EST) Blood Culture No growth at 120 hours 08/03/2024 5:01 PM EST [facility] Blood VENOUS BLOOD SPECIMEN / Unknown Venipuncture / Unknown 07/29/2024 4:08 PM EST 07/29/2024 4:26 PM EST Jay Silverio MD MICROBIOLOGY - BLO OD ORDERABLES Performing Organization Address [facility] de Phone Number [facility] [place] [phone] * XR Chest One View (07/29/2024 2:30 PM EST) WORKSTATION ID [id number] RAD Anatomical Region Laterality Modality Chest N/A [...] have questions please contact the health medicare specialist that requested your imaging first. ? Narrative [...] who have questions please contactthe health medicare specialist that requested your imaging first. Vahe Marvin MD IMG DX ORDERABLES * (ABNORMAL) APTT (07/29/2024 2:03 PM EST) [facility] Partial Thromboplastin Time >160(HHH) 25 - 37 sec 07/29/2024 2:56 PM EST [facility] Blood VENOUS BLOOD SPECIMEN / Unknown Venipuncture / Unknown 07/29/2024 2:03 PM EST 07/29/2024 2:13 PM EST Vahe Marvin MD HEMATOLOGY ORDERABLE S Performing Organization Address City/[facility]/ZIP Co de Phone Number [facility] [place] [address] * (ABNORMAL) Prothrombin Time (07/29/2024 2:03 PM [...] MD HEMATOLOGY ORDERABLE S Performing Organization Address [facility] Co de Phone Number [facility] [place] [address] * CRP, acute inflammation (07/29/2024 2:03 PM EST) C-Reactive Protein <3.0 <=4.9 mg/L 07/29/2024 2:52 PM EST [facility] Blood VENOUS BLOOD SPECIMEN / Unknown Venipuncture / Unknown 07/29/2024 2:03 PM EST 07/29/2024 2:14 PM EST Vahe Marvin MD CHEMISTRY ORDERABLES [facility] [place] [address] * Lipid Panel (Reflex Direct LDL) (07/29/2024 [...] mg/dL LDL Cholesterol 64 mg/dL 2:52 PM [facility] [...] EST 07/29/2024 2:14 PM EST [facility] LABORATORY - 07/29/2024 2:52 PM EST [...] MD CHEMISTRY ORDERABLES [facility] [place] [address] * TSH Mclean (07/29/2024 2:03 PM EST) Thyroid Stimulating Hormone 0.70 0.27 - 4.20 mcIU/mL 07/29/2024 2:52 PM EST [facility] Blood VENOUS BLOOD SPECIMEN / Unknown Venipuncture / Unknown 07/29/2024 2:03 PM EST 07/29/2024 2:14 PM EST Vahe Marvin MD CHEMISTRY ORDERABLES [facility] [place] [address] * Hemoglobin A1c (07/29/2024 2:03 PM EST) Pathologist [facility] [place] Hemoglobin A1c 5.3 4.3 - 5.6 % [...] red blood cell turnover may not be healthcare representative of glycemic control. Reference Interval: [...] EST 07/29/2024 2:14 PM EST [facility] LABORATORY - 07/29/2024 2:41 PM EST Estimated average glucose (eAG) is calculated from the equation described in: Quinten ALVES, Rikki J, Reno R, et al. ??Translating the A1C assay into estimated average glucose values. ??Diabetes Care 2008:31(8):1943-6829. Additional resources are available on the ADA website (diabetes.org). Vahe Marvin MD CHEMISTRY ORDERABLES [facility] [place] [address] * (ABNORMAL) CBC (with Diff) (07/29/2024 2:03 PM EST) White Blood Cell 19.50(H) 4.00 - 9.50 x10(3)/mc L 07/29/2024 2:18 PM EST [facility] Red Blood Cell 4.81 4.58 - 5.54 x10(6)/mc L 07/29/2024 2:18 PM [facility] Hemoglobin 13.1(L) 13.7 - 16.5 g/dL 07/29/2024 2:18 PM [facility] Hematocrit 40.1(L) 40.5 - 48.5 % 07/29/2024 2:18 PM EST [facility] Mean Cell Volume 83.4 82.9 - 93.1 fL 07/29/2024 2:18 PM EST [facility] Mean Cell Hemoglobin 27.2(L) 27.5 - 32.1 pg 07/29/2024 2:18 PM [facility] Mean Cell Hemoglobin Concentration 32.7 32.0 - 35.7 g/dL 07/29/2024 2:18 PM [facility] Platelet 236 145 - 357 x10(3)/mc L 07/29/2024 2:18 PM [facility] Mean Platelet Volume 10.6 7.6 - 12.9 fL 07/29/2024 2:18 PM [facility] RDW Standard Deviation 43.7 36.0 [...] HEMATOLOGY ORDERABLE S [facility] [place] [address] * Phosphorus (07/29/2024 2:03 PM EST) Phosphorus 2.5 2.5 - 4.5 mg/dL 07/29/2024 2:52 PM EST [facility] Blood VENOUS BLOOD SPECIMEN / Unknown Venipuncture / Unknown 07/29/2024 2:03 PM EST 07/29/2024 2:14 PM EST Vahe Marvin MD CHEMISTRY ORDERABLES Performing Organization Address City/[facility]/ZIP Co de Phone Number [facility] [place] [address] * Magnesium (07/29/2024 2:03 PM EST) Pathologist [facility] [place] Magnesium 0.70 0.69 - 1.07 mMol/L 07/29/2024 2:52 PM EST [facility] Blood VENOUS BLOOD SPECIMEN / Unknown Venipuncture / Unknown 07/29/2024 2:03 PM EST 07/29/2024 2:14 PM EST Vahe Marvin MD CHEMISTRY ORDERABLES Performing Organization Address City/[facility]/ZIP Co de Phone Number [facility] [place] [address] * (ABNORMAL) Comprehensive metabolic panel (07/29/2024 2:03 [...] MD CHEMISTRY ORDERABLES [facility] [place] [address] * (ABNORMAL) Troponin - Single (07/29/2024 2:03 [...] troponin value can be found in the [facility] Test Catalog Troponin - https://[email or web address]-.testcatalog.org/catalogs/565/files/62817 Reference: Fourth Phoenix Definition of Myocardial Infarction. Journal of the [place] College of Cardiology 2018;72:5132-8512 Blood VENOUS BLOOD SPECIMEN / Unknown Venipuncture / Unknown 07/29/2024 2:03 PM EST 07/29/2024 2:14 PM EST Vahe Marvin MD CHEMISTRY ORDERABLES [facility] [place] [address] * (ABNORMAL) Blood Gas, Venous POC (07/29/2024 [...] 0.3 <=1.5 % 07/29/2024 2:02 PM EST [facility] Sodium, Venous 137 135 - 145 mmol/L 07/29/2024 2:02 PM [facility] Potassium, Venous 3.6 3.5 - 5.0 mmol/L 07/29/2024 2:02 PM [facility] Chloride, Venous 103 98 - 107 mmol/L 07/29/2024 2:02 PM EST [facility] Glucose, Venous 229(H) 65 - 199 mg/dL 07/29/2024 2:02 PM EST [facility] Comment:Glucose Concentratio n >=200 mg/dL plus symptoms is consistent with Diabetes Mellitus. Lactate, Venous 3.1(H) 0.5 - 2.2 mmol/L 07/29/2024 2:02 PM EST [facility] Ionized Calcium, Venous 1.11(L) 1.15 - 1.33 mmol/L 07/29/2024 2:02 PM EST [facility] Blood VENOUS BLOOD SPECIMEN / Unknown 07/29/2024 2:01 PM EST 07/29/2024 2:02 PM EST Vahe Marvin MD POINT OF CARE TEST O RDERABLES Performing Organization Address City/State/[facility] Co de Phone Number [facility] [place] [address] * CARDIAC CATHETERIZATION (07/29/2024 1:20 PM EST) Anatomical Region Laterality Modality Other Narrative 07/29/2024 2:02 PM EST ?[facility] ? Cardiac Catheterization/Intervention Report ? Patient Name: Korey Montoya Driss ? Procedure Date: 07/29/2024 ? A #: [id number] ? Primary Physician: Vahe Marvin ? Case #: [id number] ? File Name: [id number] ? Catheterization Order Number: [id number] ? [facility] ? Final Report [place], [place] ? Patient Name: ? Korey P. Montoya ?ID#: ?[id number] ? : ?1950 ? Procedure Date: ? [...] procedure was Emergent. The indication for ?the labeling specialist visit is ACS less than or equal [...] 3.5 guiding catheter and a 3.5 [address] ??20 Mhz using ?Manual pullback. ??Imaging [...] ? A premounted 3.00 x 22 mm [place] (LOW) was deployed ? with a maximum [...] ??A premounted 3.00 x 08 mm [place] (LOW) ? was deployed with a maximum [...] dose administered prior to arrival in the labeling specialist. ?Recommended anti-platelet/anti-thrombotic regimen: ?Start aspirin 81 mg [...] able ?to start weaning his inotropes/vasopressors. A [place] Colette catheter was ?placed demonstrating improvement in his hemodynamics and the impella site ?was perclosed and hemostatic gauze was applied with excellent result. ?WIll transfer to the [facility] for further management. ?The attending physician was present for the entire procedure. ?Dr. Vahe Marvin M.D. was present during the moderate sedation ?intraservice time as documented by the sedation nurse. ??Case time = 01:26. ?Dr. Vahe Marvin M.D. performed the coronary angiography, left heart ?catheterization, IVUS # coronary, stent insertion-coronary, oximetry, ABG, ?transthoracic echo , ventricular assist device insertion, right heart ?catheterization, [place] (flow directed cath) insertion, access site ?angiography, vascular ultrasound, venous line / sheath insert and vascular ?closure device. ? Vahe Marvin M.D. ? Electronically Signed by: Vahe Marvin M.D. ? Report Finalized: 07/29/2024 ??13:55 ? Report Last Ammended: 07/30/2024 ??10:15 ? Procedure Note Vahe Marvin MD - 07/30/2024 [facility] Cardiac Catheterization/Intervention Report Patient Name: Korey Montoya Procedure Date: 07/29/2024 A #: [id number] Primary Physician: Vahe Marvin Case #: [id number] File Name: [id number] Catheterization Order Number: [id number] [facility] FinalReport [place], [place] Patient Name: Korey Montoya ID#:[id number] :1950 Procedure Date: July 29, 2024 Case [...] diagnostic procedure was Emergent. Theindication for the labeling specialist visit is ACS less than or equal [...] 3.5 guiding catheter and a 3.[address] 20 Mhzusing Manual pullback. Imaging was [...] priority for the procedure was Emergent.The [facility] indication for the procedure was STEMI-Immediate [...] The lesion was predilated with a 2.00mm [id number] MM balloon with a maximum inflation pressure of 12atmospheres. A premounted 3.00 x 22 mm [place] (LOW) wasdeployed with a maximum inflation pressure [...] A premounted 3.00 x 08 mm [place](LOW) was deployed with a maximum inflation pressure [...] dose administered prior to arrival in the labeling specialist. Recommended anti-platelet/anti-thrombotic regimen: Start aspirin 81 mg [...] wereable to start weaning his inotropes/vasopressors. A [place] Colette catheterwas placed demonstrating improvement in his [...] ventricular assist device insertion, right heart catheterization, [place] (flow directed cath) insertion, access site angiography, [...] TEST O RDERABLES [facility] [place] [address] * (ABNORMAL) BLOOD GAS, POC (07/29/2024 12:12 [...] TEST O RDERABLES [facility] [place] [address] documented in this encounter Visit Diagnoses Not [...] Tonya Watson RN) 0934 (Given - Provider: oTnya Watson RN) enoxaparin (Lovenox) (40 mg/0.4 mL) [...] documented in this encounter Care Teams Packing House Laborer Relationship Specialty Start Date End Date Alexia Mtz, ORTHO RN [address] [place] [address] PCP - General Family Medicine 07/30/24 documented as of this encounter
--- OUTSIDE RECORDS SUMMARY | 2024-09-19 13:08 | XMS_ITS | Encounter Summary ---
Author Organization [facility] Address [facility] [place] [address] Care Team Providers Care Size Maker Name Role Phone Yoel Artis FREDRICK Primary Care Provider [phone] Reason for Visit * Auth/Cert (Routine) Specialty Diagnoses / Procedures Referred By Theodore t Referred To Contact Diagnoses AIRO Procedures [employer] AIR[facility] Referral ID Status Reason Start Date Expiration Date Visits Re quested Visits Authorized [id number] 1 1 Encounter Details Date Type Department Care Team (Latest Contact Info) Description 07/29/2024 6:32 PM EST - 07/29/2024 11:59 PM [facility] Hospital Encounter [facility] at [address] [phone] Arvin Becerra MD [facility] [place] [address] Discharge Disposition: Home Social History Tobacco Use Types Packs/Day Years Used Date Smoking Tobacco: Former Cigarettes Smokeless Tobacco: Never Alcohol Use Standard Drinks/Week Comments Not Currently 0 (1 standard drink = 0.6 oz pur e alcohol) [facility] Utilities Answer Date Recorded In [...] time in the past 12 m [place], were you homeless or living in a [...] evening. 04/17/2023 08/04/2024 nitroGLYcerin (NITROLINGUAL) 400 mcg/spray [place], Non-AerosolIndications: Proctalgia fugax,Fecal smearing,Constipation, unspecified constipation type 1 spray to anus for proctalgia fugax as needed, not to exceed once daily 12 g 06/01/2023 08/04/2024 documented as of this encounter Plan of Treatment Upcoming Encounters Date Type Department Care Team (Late st Contact Info) Description 10/01/2024 10:00 AM EST Office Visit Cardiology at [address] [phone] Mushtaq Murphy APRN documented as of this encounter Visit Diagnoses Not on filedocumented in this encounter Care Teams Size Maker Relationship Specialty Start Date End Date Yoel Artis APRN [address] [place] [address] PCP - General Internal Medicine 11/18/22 07/29/24 documented as of this encounter
--- OUTSIDE RECORDS SUMMARY | 2024-09-19 13:09 | XMS_ITS | Encounter Summary ---
Author Organization [facility] [place] [address] Care Team Providers Care Product Development Ecologist Name Role Phone Yoel Artis Ute ALCALA Primary Care Provider Encounter Details Date Type Department Care Team (Late st Contact Info) Description 01/16/2024 5:46 PM EDT - 01/16/2024 11:59 PM EDT Hospital Encounter [facility] [address] [place] [phone] Chaparro Montana MD [address] [place] [address] Discharge Disposition: Home Social History Tobacco Use [...] evening. 04/17/2023 08/04/2024 nitroGLYcerin (NITROLINGUAL) 400 mcg/spray [place], Non-AerosolIndications:P roctalgia fugax,Fecal smearing,Constipation, unspecified constipation type 1 spray to anus for proctalgia fugax as needed, not to exceed once daily 12 g 06/01/2023 08/04/2024 documented as of this encounter Plan of Treatment Upcoming Encounters Date Type Department Care Team (Late st Contact Info) Description 10/01/2024 10:00 AM EST Office Visit Cardiology at [address] [phone] Mushtaq Murphy APRN documented as of this encounter Procedures Procedure Name Priority Date/Time Associated Diagnosis Comments URINE CULTURE Routine 01/16/2024 4:00 PM EDT documented in this encounter Results * Urine culture (01/16/2024 4:00 PM EDT) Urine Culture No growth (Less than 1,000 cfu/ml). [facility] Urine 01/16/2024 4:00 PM EDT 01/16/2024 10:36 PM EDT Narrative Resulting Agency Comment Spec In Lab Chaparro Montana MD MICROBIOLOGY - [facility] ORDERABLES [facility] [place] [address] documented in this encounter Visit Diagnoses Not on filedocumented in this encounter Care Teams Product Development Ecologist Relationship Specialty Start Date End Date Yoel Artis APRN [address] [place] [address] PCP - General Internal Medicine 11/18/22 07/29/24 documented as of this encounter
--- OUTSIDE RECORDS SUMMARY | 2024-09-19 13:09 | XMS_ITS | Encounter Summary ---
[place] [address] Care Team Providers Care Copy Chaser Name Role Phone Yoel Artis FREDRICK Primary Care Provider [phone] Reason for Visit * Auth/Cert (Routine) Specialty Diagnoses / Procedures Referred By Theodore t Referred To Contact Diagnoses Anal spasm Fecal smearing Constipation, unspecified Rectal pain, fecal smearing Procedures PRO COLONOSCOPY, DIAGNOSTIC PRO COLONOSCOPY, BIOPSY PRO COLONOSCOPY, REMV LESN, SNARE COLONOSCOPY, DIAGNOSTIC (WRVU 3.26) Brandan Mcgovern MD [facility] [place] [address] [facility] Referral ID Status Reason Start Date Expiration Date Visits Re quested Visits Authorized [id number] 1 1 Encounter Details Date Type Department Care Team (Late st Contact Info) Description 08/30/2023 11:00 AM EST - 08/30/2023 12:00 PM EST Surgery [place] [address] Brandan Mcgovern MD [facility] [place] [address] COLONOSCOPY, POLYPECTOMY, REMOVAL LESION BY SNARE (WRVU [...] occurs, please contact your Doctor. Please call [phone] before 8pm Mon-Fri with problems, questions or concerns. If you call after 8pm or on weekends, call the Hospital at [phone] and ask to speak to the Associate Medical Director account solutions analyst and the electric transfer operator will contact that person for you. When should you call for help? Call [phone] anytime you think you may need emergency [...] Where can you learn more? [facility] View your After Visit Summary and more online at [email or web address] If you would like to provide feedback about your hospital experience, please call the Office of Patient and Family Relations at . If you have received this After Visit Summary in error, please immediately return it in person to the department, or notify the [facility] Privacy Office by calling toll free at between the hours of 8AM and 5PM to arrange for our retrieval of the documents at no cost to you. Content Version: 12.2 ?? [phone] [employer]. Care instructions adapted under license by [facility]. If you have questions about a medical condition or this instruction, always ask your healthcare professional. [employer] disclaims any warranty or liability for your [...] evening. 04/17/2023 08/04/2024 nitroGLYcerin (NITROLINGUAL) 400 mcg/spray [place], Non-AerosolIndications:P roctalgia fugax,Fecal smearing,Constipation, unspecified constipation type [...] AM EST Office Visit Cardiology at [address] [phone] Mushtaq Murphy APRN documented as of this encounter Procedures Procedure Name Priority Date/Time Associated Diagnosis Comments SPECIMEN TO PATHOLOGY Routine 08/30/2023 11:23 AM EST SURGICAL PATHOLOGY REPORT Routine 08/30/2023 11:21 AM EST COLONOSCOPY Routine 08/30/2023 10:57 AM EST Colonoscopy, Remv [place], Snare ([id number]) 08/30/2023 10:44 AM EST Proctalgia fugax Fecal smearing Constipation, unspecified constipation type documented in this encounter Results * Specimen to Pathology (08/30/2023 11:23 AM EST) AP Specimen 08/30/2023 11:2 3 AM EST 08/30/2023 11:[address] [facility] - 08/30/2023 11:23 AM EST Specimen requisition ordered. ??Separate Pathology report to follow Brandan Mcgovern MD PATHOLOGY/CYTOLOGY O JOSH Performing Organization Address [facility]/ZIP Co de Phone Number [facility] [place] [address] * Surgical Pathology Report (08/30/2023 11:21 AM EST) Final Diagnosis [id number] ? Location: 4T; EA12; A The signing pathologist has (i) examined the relevant preparation(s) for the specimen(s) and (ii) rendered or confirmed the diagnosis(es). . ?Surgical Pathology DIAGNOSIS A - Sigmoid colon polyp, resection (Multiple): - ??Tubular adenoma. CR-PX Electronically signed by: ?Blake ORTEGA PhD, Yulia Verified: ??09/08/2023 14:48 ??Pathologist Performed at: ??-[facility] Dept. of Pathology, [place] [address] Nitrocellulose Maker: Fercho Chan MD, AP, ??CLIA Certificate: [id number] SPECIMEN(S) SUBMITTED A - Sigmoid colon polyp, [...] EST Brandan Mcgovern MD PATHOLOGY/CYTOLOGY O JOSH [facility] [place] [address] [place] [address] * COLONOSCOPY (08/30/2023 10:57 AM EST) [facility] Signature COLONOSCOPY [facility] End[facility] Procedure Date: 08/30/2023 10:57 AM ? Patient Name: Korey Montoya ? Date of : 1950 ? Age: 73 ? Order #: [id number] ? Instrument Name: [id number] ? Procedure: ? Colonoscopy Indications: ? Rectal [...] preparation was evaluated ? using the BBPS ([place] Bowel ? Preparation Scale) with scores of: [...] RN) documented in this encounter Care Teams Copy Chaser Relationship Specialty Start Date End Date Yoel Artis APRN [address] [place] [address] PCP - General Internal Medicine 11/18/22 07/29/24 documented as of this encounter
--- OUTSIDE RECORDS SUMMARY | 2024-09-19 13:09 | XMS_ITS | Encounter Summary ---
[place] [address] Care Team Providers Care Animal Care Attendant Name Role Phone Yoel Artis FREDRICK Primary Care Provider [phone] Encounter Details Date Type Department Care Team (Late st Contact Info) Description 01/16/2024 Interpretation Only [facility] [address] [place] [address] Chaparro Montana MD [address] [place] [address] Social History Tobacco Use Types Packs/Day Years [...] AM EST Office Visit Cardiology at [address] [phone] Mushtaq Murphy APRN documented as of this encounter Procedures Procedure Name Priority Date/Time Associated Diagnosis Comments XR CHEST ONE VIEW STAT 01/16/2024 4:0 4 PM EDT documented in this encounter Results * XR Chest One View (01/16/2024 4:04 PM EDT) PT CLASS E RAD ADMITDTTM [id number] RAD PT RAD INFO [id number]^Haniss henry^Chaparro RAD EXAM DESC XCXR1^XR Chest 1 View^RIS RAD WORKSTATION ID [id number] [facility] Anatomical Region Laterality Modality Chest N/A Radiographic [...] please contact the health long term care pharmacist that requested your imaging first. ? Narrative [...] questions please contactthe health long term care pharmacist that requested your imaging first. Electronically signed by: Alexey Winslow MD, [facility]([phone]), at 01/16/2024 4:08 PM Chaparro Montana MD IMG DX ORDERABLES documented in this encounter Visit Diagnoses Not on filedocumented in this encounter Care Teams Animal Care Attendant Relationship Specialty Start Date End Date Yoel Artis APRN [address] [place] [address] PCP - General Internal Medicine 11/18/22 07/29/24 documented as of this encounter
--- OUTSIDE RECORDS SUMMARY | 2024-09-19 13:09 | XMS_ITS | Encounter Summary ---
Author Organization [facility] [place] [address] Care Team Providers Care Lemon Picker Name Role Phone Alexia Mtz TRANSFORMATION MANAGER Primary Care Provider [phone] Encounter Details Date Type Department Care Team (Late st Contact Info) Description 04/23/2024 Lab [place] [address] Alexia Mtz, TRANSFORMATION MANAGER [address] [place], [place] [id number] Elevated prostate specific antigen (PSA) Social History [...] AM EST Office Visit Cardiology at [address] [address] Mushtaq Murphy APRN documented [...] Comment:This result was gene rated using a [employer] Osiel immunoassay. Results obtained from other methods or manufacturers cannot be used interchangeably with this method. PSA % Free 21 % 04/23/2024 5:[address] [facility] Comment: Probability of finding COMPUTER SPECIALIST on needle biopsy by age in years: % fPSA ? 50-59yrs ?? 60-69yrs ? >=70yrs ?? <=10 ?49.2 ?57.5 ?64.5 ?? 11-18 ? 26.9 ?33.9 ?40.8 ?? 19-25 ? 18.3 ?23.9 ?29.7 ?? >25 ?9.1 ?12.2 ?15.8 ?? This result was generated using a [employer] Osiel immunoassay. ??Results obtained from other methods or manufacturers cannot be used interchangeably with this method. Blood VENOUS BLOOD SPECIMEN / Unknown 04/23/2024 1:09 PM EDT 04/23/2024 4:50 PM EDT Alexia Mtz APRN CHEMISTRY ORDERABLES [facility] [place] [address] documented in this encounter Visit Diagnoses Diagnosis Elevated prostate specific antigen (PSA) documented in this encounter Care Teams Lemon Picker Relationship Specialty Start Date End Date Alexia Mtz APRN [address] [place] [id number] PCP - General Family Medicine 07/30/24 documented as of this encounter
--- OUTSIDE RECORDS SUMMARY | 2024-09-19 13:09 | XMS_ITS | Encounter Summary ---
[place] [address] Care Team Providers Care Baffle Mounter Name Role Phone Yoel Artis Ute ALCALA Primary Care Provider [phone] Encounter Details Date Type Department Care Team (Late st Contact Info) Description 07/28/2024 Interpretation Only [address] [address] Quinten Coffey MD [address] [place] [address] Social History Tobacco Use Types Packs/Day Years [...] AM EST Office Visit Cardiology at [address] [address] Mushtaq Murphy APRN documented as of this encounter Procedures Procedure Name Priority Date/Time Associated Diagnosis Comments XR CHEST ONE VIEW STAT 07/28/2024 10: 22 AM EST documented in this encounter Results * XR Chest One View (07/28/2024 10:22 AM EST) PT CLASS E RAD ADMITDTTM [id number] RAD PT RAD INFO [id number]^Alexx ^Quinten RAD EXAM DESC XCXR1^XR Chest 1 View^RIS RAD WORKSTATION ID [id number] [facility] Anatomical Region Laterality Modality Chest N/A Radiographic Farida ging 07/28/2024 10:2 2 AM EST Impressions 07/28/2024 11:18 AM EST Clear lungs. Thank you for letting us participate in the care of this patient. ??If you are a health care provider and have any questions regarding this report, please contact the number below. ??For patients who have questions please contact the health healthcare corporate account director that requested your imaging first. ? [...] patients who have questions please contactthe health healthcare corporate account director that requested your imaging first. Quinten Coffey MD IMG DX ORDERABLES documented in this encounter Visit Diagnoses Not on filedocumented in this encounter Care Teams Baffle Mounter Relationship Specialty Start Date End Date Yoel Artis APRN [address] [place] [id number] PCP - General Internal Medicine 11/18/22 07/29/24 documented as of this encounter
--- OUTSIDE RECORDS SUMMARY | 2024-09-19 13:09 | XMS_ITS | Encounter Summary ---
Author Organization [facility] Address [facility] [place] [address] Care Team Providers Care Sheet Metal Worker Helper Name Role Phone Yoel Artis FREDRICK Primary Care Provider [phone] Encounter Details Date Type Department Care Team (Late st Contact Info) Description 07/29/2024 [place] [phone] Ivan Hernandez MD [facility] [place] [address] Social History Tobacco Use Types Packs/Day Years Used Date Smoking Tobacco: Former Cigarettes Smokeless Tobacco: Never Alcohol Use Standard Drinks/Week Comments Not Currently 0 (1 standard drink = 0.6 oz pur e alcohol) [facility] Utilities Answer Date Recorded In the past 12 months has e [employer], gas, oil, or water [employer] threatened to shut off services in your [...] Center If Hospital to which patient presented= [facility]: ED Walk In Medical History (prior [...] Unfractionated Heparin Plan STEMI Alert called: Yes Rubber Engraver Activated by: Relief Master Initial Disposition: Admit Rubber Engraver documented in this encounter Plan of Treatment Upcoming Encounters Date Type Department Care Team (Late st Contact Info) Description 10/01/2024 10:00 AM EST Office Visit Cardiology at [address] [address] Mushtaq Murphy APRN documented as of this encounter Visit Diagnoses Not on filedocumented in this encounter Care Teams Sheet Metal Worker Helper Relationship Specialty Start Date End Date Yoel Artis APRN [address] [place] [address] PCP - General Internal Medicine 11/18/22 07/29/24 documented as of this encounter
--- OUTSIDE RECORDS SUMMARY | 2024-09-19 13:09 | XMS_ITS | Encounter Summary ---
Author Organization [facility] Address [facility] [place] [address] Care Team Providers Care Ssn/Ssbn Assistant Navigator Name Role Phone Yoel Artis Ute ALCALA Primary Care Provider [phone] Encounter Details Date Type Department Care Team (Late st Contact Info) Description 07/29/2024 Orders [place] [address] Susannah Watts PA [facility] [place] [address] Social History Tobacco Use Types Packs/Day Years Used Date Smoking Tobacco: Former Cigarettes Smokeless Tobacco: Never Alcohol Use Standard Drinks/Week Comments Not Currently 0 (1 standard drink = 0.6 oz pur e alcohol) [facility] Utilities Answer Date Recorded In the past 12 months has [employer], [employer], oil, or water [employer] threatened to shut off services in your [...] in the past 12 m [facility], were you homeless or living in [...] 10:00 AM EST Office Visit Cardiology at [facility] [address] [place] [phone] Mushtaq Murphy APRN documented as of this encounter Procedures Procedure Name Priority Date/Time Associated Diagnosis Comments ECHOCARDIOGRAM TRANSTHORACIC Routine 07/30/2024 1:41 AM EST documented in this encounter Results * Echocardiogram Transthoracic (07/30/2024 1:41 AM EST) Anatomical Region Laterality Modality Cardiac Other 07/30/2024 1:41 AM EST Narrative 07/30/2024 8:23 AM EST [address] [place] [address] ? Echocardiogram Report Name: KOREY BERMUDEZ ? Study Date: 07/30/2024 01:41 AM : 1950 ? Height: 168 cm Age: 74 yrs ? Weight: 5.9 kg Gender: Male ?BSA: 0.63 m2 Performed By: Beatris Ching MD Reason For Study: STEMI, [place] History: ASCVD, HTN, HLD Interpreting Fellow: Beatris Ching. Interpretation Summary This is a limited study performed by a fellow information security manager to evaluate for cardiogenic shock with [...] study available for comparison. Procedure Limited - 09284. Suboptimal quality. There is sinus bradycardia. Left [...] Note Kathleen Banda MD - 07/30/[address] [place] [address] Echocardiogram Report Name: BERMUDEZKOREY Study Date: 07/30/2024 01:41AM : 1950 Height: 168 cm Age: 74 yrs Weight: 5.9 kg Gender: Male BSA: 0.63 m2 Performed By: Beatris Ching MD Reason For Study: STEMI, [place] History: ASCVD, HTN, HLD Interpreting Fellow: Beatris Ching. Interpretation Summary This is a limited study performed by a fellow information security manager to evaluate forcardiogenic shock with impella in. [...] study available for comparison. Procedure Limited - 13571. Suboptimal quality. There is sinus bradycardia. Left [...] on filedocumented in this encounter Care Teams Ssn/Ssbn Assistant Navigator Relationship Specialty Start Date End Date Yoel Artis APRN [address] [place], [place] [id number] PCP - General Internal Medicine 11/18/22 07/29/24 documented as of this encounter
--- OUTSIDE RECORDS SUMMARY | 2024-09-19 13:09 | XMS_ITS | Encounter Summary ---
[place] [address] Care Team Providers Care Cremator Name Role Phone Yoel Artis Ute ALCALA Primary Care Provider [phone] Reason for Visit * Auth/Cert (Routine) Specialty Diagnoses / Procedures Referred By Theodore t Referred To Contact Diagnoses STEMI (ST elevation myocardial infarction) STEMI Procedures ER IPI Vahe Marvin MD [facility] [place] [address] [facility] Referral ID Status Reason Start Date Expiration Date Visits Re quested Visits Authorized [id number] 1 1 Encounter Details Date Type Department Care Team (Late st Contact Info) Description 07/29/2024 12:00 PM EST - 07/29/2024 12:54 PM EST Surgery Skein [place]cer[place] [address] Vahe Marvin MD [facility] [place] [address] CARDIAC CATHETERIZATION Social History Tobacco Use Types Packs/Day Years Used Date Smoking Tobacco: Former Cigarettes Smokeless Tobacco: Never Alcohol Use Standard Drinks/Week Comments Not Currently 0 (1 standard drink = 0.6 oz pur e alcohol) [facility] Utilities Answer Date Recorded In [...] in a custodial (including now)? No 07/30/2024 DH IPV Inpatient [...] Korey Montoya Patient Age: 74 y.o. Language: Estonian Race: White Ethnicity: Not nor Admit date: [...] please contact your inpatient physician through the [facility] Watershed Manager . Issues afterhours and on weekends will [...] EKG. Patient transferred via air ambulance to [facility] on 07/29 for LHC and LOW to [...] EKG. Was transferred via air ambulance to [facility] for further management and LHC demonstrated 100% [...] the next year. Access was via right DIALYSIS BIOMED TECHNICIAN and this sitewas clean, dry and [...] for Chest pain. Replaces: nitroGLYcerin 400 mcg/spray Almond, Non-Aerosol 0.4 mg Quantity: 90 tablet Refills: [...] Refills: 0 STOPPED Medications nitroGLYcerin 400 mcg/spray Almond, Non-Aerosol Commonly known as: NITROLINGUAL Replaced by: [...] of one year. After this time, your adzing and boring machine helper will determine if you need to continue [...] away. Stay on the phone. The emergency feller seam operator will tell you what to do. [...] appointments: During 8am-5pm Tuesday through Tuesday call [phone] to speak with a nurse in the cardiology clinic All other times call [phone] and ask to speak to the restaurant service manager contract manager. Follow up Appointments: PCP Alexia Mtz, ALUMINUM BOAT INSPECTOR [phone]. Please call to establish a follow up appointment within 1-2 weeks of discharge. Cardiology. Referral to heart failure has been sent. General Instructions None Future Appointments and Orders Future Orders Complete By Expires Referral to Cardiac Rehab [[id number] Custom] As directed Process Instructions: If no progress note charted, please enter Clinical details in comments. Scheduling Instructions: Questions: My question or request is: STEMI, PCI- cardiac rehab at [facility] Referral to Cardiology [REF12 Custom] As directed Process Instructions: If no progress note charted, please enter Clinical details in comments. Scheduling Instructions: Questions: My question or request is: acute HFrEF Discharge References/Attachments None > 30 minutes spend on day of discharge chart review, patient counseling, and documentation. Alex Small MD 08/04/2024 documented in this encounter Discharge Instructions * Patient Instructions* Aelx Small MD - 08/04/2024 3:51 PM EST You underwent a cardiac catheterization at which time a stent was placed to LAD coronary artery. In order to protect your stent from blood clots forming, you will need to remain on two antiplatelet medications called aspirin and plavix for a minimum of one year. After this time, your adzing and boring machine helper will determine if you need to continue [...] away. Stay on the phone. The emergency feller seam operator will tell you what to do. [...] appointments: During 8am-5pm Tuesday through Tuesday call [phone] to speak with a nurse in the cardiology clinic All other times call [phone] and ask to speak to the restaurant service manager contract manager. Follow up Appointments: PCP Alexia Mtz, ALUMINUM BOAT INSPECTOR [phone]. Please call to establish a follow up [...] of this encounter Progress Notes * Tonya Wtason RN - 08/04/2024 3:30 PM ESTSummary: Discharge [...] EKG. Patient transferred via air ambulance to [facility] on 07/29 for LHC and LOW to LAD for 100% occlusion Social History: Pt lives with his in a 1 level home with 2 NAOMI. 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 He [...] Total time: 35 (tef) minutes Time IN/OUT: 0717-2196 ZAIDA DUBOSE PT Pager: [phone] Physical Therapy Inpatient Rehabilitation Department * Yrn Velazquez MD - 08/03/2024 10:38 AM EST CV HOSPITALIST 2 - [facility] DAILY PROGRESS NOTE Page [phone] to reach a provider 04/04 Admit Date: [...] or before 29-JUL-2024) Lateral injury pattern ACUTE GA / STEMI Abnormal ECG When compared with [...] Compared to the overnight study by the contract manager fellow the impella position is stable. 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 [facility] 07/29/24 Conclusions: * One vessel [...] EKG. Patient transferred via air ambulance to [facility] on 07/29 for LHC and LOW to [...] be determined OT: PCP Alexia Mtz, FREDRICK [phone] * Zaida Dubose, PT - 08/02/2024 2:08 PM EST Physical Therapy Evaluation Patient profile: Korey Montoya is a 74 y.o. male w/ PMH of hypertension, HLD, and BPH who presents for chief concern of chest pain after being found to have ST elevations on EKG. Patient transferred via air ambulance to [facility] on 07/29 for LHC and LOW to LAD for 100% occlusion Social History: Pt lives with his in a 1 level home with 2 NAOMI. 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 He [...] Total time: 37 (eval) minutes Time IN/OUT: 2344-5440 ZAIDA DUBOSE PT Pager: [phone] Physical Therapy Inpatient Rehabilitation Department * Gagan [...] EKG. Patient transferred via air ambulance to [facility] on 07/29 for LHC and LOW to LAD for 100% occlusion. TTE showed apical akinesis and inferior hypokinesis with EF 20%. RHC showed elevated filling pressures. Impella placed and P-level 6 at time of transfer to [facility]. CI initially 1.97, improved to 2.2 [...] PCP: Alexia Mtz APRN PCP phone number: [phone] Date of Admission: 07/29/2024 ( Hospital Day 4 days ) Attending:Bridgette Stauffer MD ID: Korey Montoya is a 74 y.o. male w/ PMH of hypertension, HLD, and BPH on Hospital Day4 for chief concern of chest pain after being found to have ST elevations on EKG. Patient transferred via air ambulance to [facility] on 07/29 for LHC and LOW to [...] 07/29/24 1621 PHART 7.48* 7.44 7.38 7.37 ZMS0GVA 29* 29* 34* 36 PO2ART 71* 109* 141* 71* BLD8LEG 20.6 19.4* 19.5* 20.4 VBG (Venous Blood Gas) Recent Labs 07/29/24 1401 PHVEN 7.30* PO2VEN 39 UFC4DKA 20.1* Mixed Venous Sat No results for input(s): P6FWVU2 in the last 168 hours. Objective: Vitals [...] 07/29/24 1621 PHART 7.48* 7.44 7.38 7.37 ZEV7HCP 29* 29* 34* 36 PO2ART 71* 109* 141* 71* RDA4GCG 20.6 19.4* 19.5* 20.4 VBG (Venous Blood Gas) Recent Labs 07/29/24 1401 PHVEN 7.30* PO2VEN 39 HXN1JJY 20.1* Mixed Venous Sat No results for input(s): M8RSXT9 in the last 168 hours. Microbiology: Microbiology Results (Last 30 days) Procedure Component Value Units Date/Time Blood culture [[id number]] Collected: 07/29/24 160 Lab Status: Preliminary result Specimen: Blood, Venous Updated: 08/01/24 170 Blood Culture No growth at 72 hours Blood culture [[id number]] Collected: 07/29/241607 Lab Status: Preliminary result Specimen: Blood, Venous Updated: 08/01/241700 Blood Culture No growth at 72 hours Imaging: Results for orders placed or performed during the hospital encounter of 07/29/24 XR Chest One View (Exam End: 07/29/2024 2:30 PM) Result Value WORKSTATION ID [id number] Impression 1. No pulmonary edema. 2. No pleural effusion. 3. No pneumothorax. Thank you for letting us participate in the care of this patient. If you are a health care provider and have any questions regarding this report, please contact the number below. For patients who have questions please contact the health career transition specialist that requested your imaging first. Electronically signed by: Chris Candelaria MD, [facility] ([phone]), at 07/29/2024 3:21 PM TTE ( 07/30/24) [...] Compared to the overnight study by the contract manager fellow the impella position is stable. [...] EKG. Patient transferred via air ambulance to [facility] on 07/29 for LHC and LOW to [...] Susannah Ornelas MD Internal Medicine, PGY-1 Cardiology, [facility] 08/02/24 12:45 PM CARDIOLOGY STAFF NOTE [...] today). Transfer to floor. Krystal Parker MD, [facility] Staff Felt Coverer bending machine set up operator * Gagan Catherine MD - 08/01/2024 11:12 [...] EKG. Patient transferred via air ambulance to [facility] on 07/29 for LHC and LOW to [...] which was weaned upon arrival to [facility] to norepinephrine 20and levo 0.04 N [...] PCP: Alexia Mtz APRN PCP phone number: [phone] Date of Admission: 07/29/2024 ( Hospital Day 3 days ) Attending:Krystal Parker MD ID: Korey Montoya is a 74 y.o. male w/ PMH of hypertension, HLD, and BPH on Hospital Day3 for chief concern of chest pain after being found to have ST elevations on EKG. Patient transferred via air ambulance to [facility] on 07/29 for LHC and LOW to [...] 07/29/24 1621 PHART 7.48* 7.44 7.38 7.37 AUQ7VDJ 29* 29* 34* 36 PO2ART 71* 109* 141* 71* KRG4BRF 20.6 19.4* 19.5* 20.4 VBG (Venous Blood Gas) Recent Labs 07/29/24 1401 PHVEN 7.30* PO2VEN 39 DBF6SWL 20.1* Mixed Venous Sat No results for input(s): I5XWRZ4 in the last 168 hours. PA Catheter [...] 07/29/24 1621 PHART 7.48* 7.44 7.38 7.37 KYL1JYT 29* 29* 34* 36 PO2ART 71* 109* 141* 71* EHA9EUJ 20.6 19.4* 19.5* 20.4 VBG (Venous Blood Gas) Recent Labs 07/29/24 1401 PHVEN 7.30* PO2VEN 39 ZYL2MHR 20.1* Mixed Venous Sat No results for input(s): Z4ALLR8 in the last 168 hours. Microbiology: Microbiology Results (Last 30 days) Procedure Component Value Units Date/Time Blood culture [[id number]] Collected: 07/29/241607 Lab Status: Preliminary result Specimen: Blood, Venous Updated: 07/31/241700 Blood Culture No growth at 48 hours Blood culture [[id number]] Collected: 07/29/241607 Lab Status: Preliminary result Specimen: Blood, Venous Updated: 07/31/241700 Blood Culture No growth at 48 hours Imaging: Results for orders placed or performed during the hospital encounter of 07/29/24 XR Chest One View (Exam End: 07/29/2024 2:30 PM) Result Value WORKSTATION ID [id number] Impression 1. No pulmonary edema. 2. No pleural effusion. 3. No pneumothorax. Thank you for letting us participate in the care of this patient. If you are a health care provider and have any questions regarding this report, please contact the number below. For patients who have questions please contact the health career transition specialist that requested your imaging first. Electronically signed by: Chris Candelaria MD, [facility] ([phone]), at 07/29/2024 3:21 PM TTE ( 07/30/24) [...] Compared to the overnight study by the contract manager fellow the impella position is stable. [...] EKG. Patient transferred via air ambulance to [facility] on 07/29 for LHC and LOW to [...] with him; questions answered. Krystal Parker MD, [facility] Staff Felt Coverer bending machine set up operator * Krystal Parker MD - 07/31/2024 1:06 [...] EKG. Patient transferred via air ambulance to [facility] on 07/29 for LHC and LOW to LAD for 100% occlusion. TTE showed apical akinesis and inferior hypokinesis with EF 20%. RHC showed elevated filling pressures. Impella placed and P-level 6 at time of transfer to [facility]. CI initially 1.97, improved to 2.2 After impella. Received about 3 L of fluid during procedural course. Patient initially required norepinephrine 30, epinephrine 10, and vasopressin 0.04 for hemodynamic support, which was weaned upon arrival to [facility] to norepinephrine 20and levo 0.04 N [...] PCP: Alexia Mtz APRN PCP phone number: [phone] Date of Admission: 07/29/2024 ( Hospital Day 2 days ) Attending:Krystal Parker MD ID: Korey Montoya is a 74 y.o. male w/ PMH of hypertension, HLD, and BPH on Hospital Day2 for chief concern of chest pain after being found to have ST elevations on EKG. Patient transferred via air ambulance to [facility] on 07/29 for LHC and LOW to [...] 0057 07/29/24 1621 PHART 7.44 7.38 7.37 RCW3SWN 29* 34* 36 PO2ART 109* 141* 71* QLH7WHB 19.4* 19.5* 20.4 VBG (Venous Blood Gas) Recent Labs 07/29/24 1401 PHVEN 7.30* PO2VEN 39 YMX5LRX 20.1* Mixed Venous Sat No results for input(s): M9XXZE0 in the last 168 hours. PA Catheter [...] 0057 07/29/24 1621 PHART 7.44 7.38 7.37 MIF4INX 29* 34* 36 PO2ART 109* 141* 71* COU3ANJ 19.4* 19.5* 20.4 VBG (Venous Blood Gas) Recent Labs 07/29/24 1401 PHVEN 7.30* PO2VEN 39 UQG7OHC 20.1* Mixed Venous Sat No results for input(s): M0SIZB0 in the last 168 hours. Microbiology: Microbiology Results (Last 30 days) Procedure Component Value Units Date/Time Blood culture [[id number]] Collected: 07/29/241607 Lab Status: Preliminary result Specimen: Blood, Venous Updated: 07/30/24 170 Blood Culture No Growth at 18-24 hrs. Blood culture [[id number]] Collected: 07/29/241607 Lab Status: Preliminary result Specimen: Blood, Venous Updated: 07/30/241700 Blood Culture No Growth at 18-24 hrs. Imaging: Results for orders placed or performed during the hospital encounter of 07/29/24 XR Chest One View (Exam End: 07/29/2024 2:30 PM) Result Value WORKSTATION ID [id number] Impression 1. No pulmonary edema. 2. No pleural effusion. 3. No pneumothorax. Thank you for letting us participate in the care of this patient. If you are a health care provider and have any questions regarding this report, please contact the number below. For patients who have questions please contact the health career transition specialist that requested your imaging first. Electronically signed by: Chris Candelaria MD, [facility] ([phone]), at 07/29/2024 3:21 PM TTE ( 07/30/24) [...] Compared to the overnight study by the contract manager fellow the impella position is stable. [...] EKG. Patient transferred via air ambulance to [facility] on 07/29 for LHC and LOW to [...] work to optimize volume status while continuing sucpymu-klqiqo-jamzqjysum therapies at this time. Obtain comprehensive TTE. [...] EKG. Patient transferred via air ambulance to [facility] on 07/29 for LHC and LOW to LAD for 100% occlusion. TTE showed apical akinesis and inferior hypokinesis with EF 20%. RHC showed elevated filling pressures. Impella placed and P-level 6 at time of transfer to [facility]. CI initially 1.97, improved to 2.2 After impella. Received about 3 L of fluid during procedural course. Patient initially required norepinephrine 30, epinephrine 10, and vasopressin 0.04 for hemodynamic support, which was weaned upon arrival to [facility] to norepinephrine 20and levo 0.04 N [...] ICU Progress Note Patient info: Name: Korey Monotya : 1950 PCP: Yoel Artis APRN PCP phone number: [phone] Date of Admission: 07/29/2024 ( Hospital Day 1 day ) Attending:Aubree Silverio MD ID: Korey Montoya is a 74 y.o. male w/ PMH of hypertension, HLD, and BPH on Hospital Day1 for chief concern of chest pain after being found to have ST elevations on EKG. Patient transferred via air ambulance to [facility] on 07/29 for LHC and LOW to [...] 0057 07/29/24 1621 PHART 7.44 7.38 7.37 DEK4NYY 29* 34* 36 PO2ART 109* 141* 71* CPK7PCF 19.4* 19.5* 20.4 VBG (Venous Blood Gas) Recent Labs 07/29/24 1401 PHVEN 7.30* PO2VEN 39 UWM5QCB 20.1* Lactate ( Last 12 hours) 1.3 >> 1.2 Mixed Venous Sat No results for input(s): F8ZNTU2 in the last 168 hours. PA Catheter [...] 0057 07/29/24 1621 PHART 7.44 7.38 7.37 SAU7SDU 29* 34* 36 PO2ART 109* 141* 71* AQK6BCE 19.4* 19.5* 20.4 VBG (Venous Blood Gas) Recent Labs 07/29/24 1401 PHVEN 7.30* PO2VEN 39 NFH3LKF 20.1* Mixed Venous Sat No results for input(s): N2JHEX9 in the last 168 hours. Microbiology: Microbiology Results (Last 30 days) Procedure Component Value Units Date/Time Blood culture [[id number]] Collected: 07/29/24 1608 Lab Status: In process Specimen: Blood, Venous Updated: 07/29/24 1626 Blood culture [[id number]] Collected: 07/29/24 1608 Lab Status: In process Specimen: Blood, Venous Updated: 07/29/24 1615 Imaging: Results for orders placed or performed during the hospital encounter of 07/29/24 XR Chest One View (Exam End: 07/29/2024 2:30 PM) Result Value WORKSTATION ID [id number] Impression 1. No pulmonary edema. 2. No pleural effusion. 3. No pneumothorax. Thank you for letting us participate in the care of this patient. If you are a health care provider and have any questions regarding this report, please contact the number below. For patients who have questions please contact the health career transition specialist that requested your imaging first. Medications [...] EKG. Patient transferred via air ambulance to [facility] on 07/29 for LHC and LOW to [...] bedside and over the phone ( Daughter Pavrin) Susannah Ornelas MD Internal Medicine, PGY-1 Cardiology, [...] EKG. Patient transferred via air ambulance to [facility] on 07/29 for LHC and LOW to [...] EKG. Was transferred via air ambulance to [facility] for further management and C demo nstrated 100% occlusion. No significant RCA, LMCA, or LCX disease. LOW placed in LAD with some residual distal disease meriting placement of overlapping distal stent. TTE showed apical akinesis and inferior hypokinesis with EF 20%. RHC showed elevated filling pressures. Impella placed and P-level 6 at time of transfer to [facility]. CI initially 1.97, improved to 2.2 After impella. Received about 3 L of fluid during procedural course. Patient initially required norepinephrine, epinephrine, and vasopressin for hemodynamic support, which was weaned upon arrival to [facility] to norepinephrine 20 and levo 0.04 [...] 4.57) performed by Brandan Mcgovern MD [facility] ENDOSCOPY Significant Family History: Family History [...] mouth. Past Week nitroGLYcerin (NITROLINGUAL) 400 mcg/spray Almond, Non-Aerosol 1 spray to anus for proctalgia [...] 3.5 guiding catheter and a 3.5 [address] [facility] [place] [facility] 20 Mhz using Manual pullback. Imaging [...] priority for the procedure was Emergent. The [facility] indication for the procedure was [...] atmospheres. A premounted 3.00 x 22 mm Ages [place] (LOW) was deployed with a maximum inflation [...] A premounted 3.00 x 08 mm [place] (LOW) was deployed with a maximum inflation [...] a limited study performed by a fellow contract manager to evaluate for cardiogenic shock with [...] Compared to the overnight study by the contract manager fellow the impella position is stable. [...] EKG. Patient transferred via air ambulance to [facility] on 07/29 for LHC and LOW to [...] PCP: Yoel Artis APRN PCP phone number: [phone] Date of Admission: 07/29/2024 ( Hospital Day 0 days ) Attending:Aubree Silverio MD ID: Korey Montoya is a 74 y.o. male w/ PMH of hypertension, HLD, and BPH who presents for chief concern of chest pain after being found to have ST elevations on EKG. Patient transferred via air ambulance to [facility] on 07/29 for LHC and LOW to LAD for 100% occlusion. HPI: Korey Montoya is a 74 y.o. male w/ PMH of hypertension, HLD, and BPH who presents for chief concern of chest pain after being found to have ST elevations on EKG. Patient transferred via air ambulance to [facility] on 07/29 for LHC and LOW to [...] EKG. Was transferred via air ambulance to [facility] for further management and LHC demonstrated 100% [...] 4.57) performed by Brandan Mcgovern MD [facility] ENDOSCOPY Family History Family History Problem [...] Blood Gas) No results for input(s): PHART, IZJ0DJB, PO2ART, GUU7GRI, LACTATEVEN, UMO9NUO, PFRATIOART2 in the last 168 hours. VBG (Venous Blood Gas) Recent Labs 07/29/24 1401 PHVEN 7.30* PO2VEN 39 JFL1PTX 20.1* Mixed Venous Sat No results for input(s): G4ISWJ5 in the last 168 hours. PA Catheter [...] Blood Gas) No results for input(s): PHART, BIA3UIH, PO2ART, LGI3OBO, LACTATEVEN, UNV1HUT, PFRATIOART2 in the last 168 hours. VBG (Venous Blood Gas) Recent Labs 07/29/24 1401 PHVEN 7.30* PO2VEN 39 FQV2WQC 20.1* Mixed Venous Sat No results for input(s): F2QKWZ7 in the last 168 hours. Microbiology: Microbiology [...] EKG. Patient transferred via air ambulance to [facility] on 07/29 for LHC. Found to have 100% occlusion of LAD for which he underwent LOW to LAD.Otherwise no other significant vessel disease. Fahad is currently hemodynamically tenuous but improving upon admission to [facility], requiring hemodynamic support with norepinephrine and vasopressin at time of admission along with mechanical support with Impella device. Reassuringly, he demonstrates decreasing pressor requirements since admission to [facility], with epinephrine completely weaned. He does [...] Amos MD Internal Medicine, PGY-3 Cardiology, [facility] 07/29/24 3:14 PM Cardiology Attending Note [...] Section of Cardiovascular Medicine [facility] Center Director Lead Teachercremator [facility] [employer] [facility] at [facility] This patient meets or has met medical [...] to the planned procedure. Hand Hygiene: The cashier receptionist did perform hand hygiene prior to arterial [...] ease. Good wave form. Ivan Hernandez MD Tree Inspector Associated attestation - Rolando Yeh MD [...] Fahad was quite active prior to his GA. 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 Given parameters for home exercise. He follows a heart healthy diet and is not overweight. His lipids are wnl. Participation in an outpatient cardiac rehabilitation program at [facility] was discussed. Patient agrees to a [...] MEDICARE Payor: [employer] MANAGED MEDICARE / Plan: [facility]NA[facility] COMPLETE / Product Type: [...] Date of Discharge: 08/04/2024 Gaby Wong RN, [phone] * Initial Assessments - Char Meza OT - 08/03/2024 10:00 AM EST Occupational Therapy Evaluation Patient profile: Korey Montoya is a 74 y.o. male admitted on 07/29/2024 w/ PMH of hypertension, HLD, and BPH who presents for chief concern of chest pain after being found to have ST elevations onEKG. Patient transferred via air ambulance to [facility] on 07/29 for LHC and LOW to LAD for 100% occlusion. Past Medical History: Diagnosis Date ADHD HLD (hyperlipidemia) HTN (hypertension) Tremor Past Surgical History: Procedure Laterality Date HAND SURGERY PRO COLONOSCOPY, REMV LESN, SNARE N/A 08/30/2023 COLONOSCOPY, POLYPECTOMY, REMOVAL LESION BY SNARE (WRVU 4.57) performed by Brandan Mcgovern MD Formerly [facility], [facility] ENDOSCOPY Social History: Patient lives with his . Home Setup: 2 NAOMI to a 1 level home. DME: none Baseline ADL/Mobility: Independent with ADLs and IADLs. Enjoys walking. able assist as needed. Precautions/Special Considerations: Full code. Risk for falls. Subjective: I have access to an [employer] gym. (Educated to wait for MD to [...] evaluation only Total Minutes, Occupational Therapy: 14 ([id number] (evaluation)) 2017 OT Evaluation Code Rationale: Diagnosis [...] and measurable assessment of functional outcome. Pager: [phone] Char Meza OT 08/03/2024 Occupational Therapy Rehabilitation [...] (Interventions Implemented as Appropriate) Flowsheets (Taken 08/01/2024 9868) Outcome Summary: A+O, no pain. NSR. MAP [...] Procedure Note: Patient Name: Korey Montoya : [id number] MR#: [id number] Case Date: 07/31/2024 Watershed Manager: Surgeons and Role: * Maldonado Luis MD - Primary * Quinten Charles PA - Physician Network Control Operator Preoperative diagnosis: shock, impella Postoperative diagnosis: * same * Procedure(s) performed: Impella removal form right DIALYSIS BIOMED TECHNICIAN Access: Right DIALYSIS BIOMED TECHNICIAN A time-out was conducted prior to [...] Admitted From: Transfer from another hospital Location: [facility] Reason for Hospitalization: chest pain [...] receiving care in [place] must abide by [place] law. The hierarchy [...] (i) The agent with financial power of litigation attorney associate or a conservator appointed in accordance with [...] Home Address confirmed as: Mailing Address: [address] [address] Physical Address: [address] [place] [address] Social & Family Supports: All names listed [...] points: Addiction likely Health/Prescription Coverage: Primary Insurance: [facility] MANAGED MEDICARE Payor: 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 CXR and EKG completed. [...] Procedure Note: Patient Name: Korey Montoya : [id number] MR#: [id number] Case Date: 07/29/2024 Watershed Manager: Surgeons and Role: * Vahe Marvin MD - Primary * Ssuannah Watts PA - Physician Network Control Operator Preoperative diagnosis: STEMI Postoperative diagnosis: * STEMI, LAD Artery * * Cardiogenic Shock * Procedure(s) performed: [facility] Coronary angiogram Stent insertion coronary IVUS coronary Venous line insert [facility] [place] Colette Catheter Vascular closure device Ventricular assist [...] x 22 mm to 14 deonna JEISON [place] with LIZ 3 flow. Residual distal disease at distal stent, overlapping distal stent was inserted with 3.0 x 8 mm JEISON [place]. Systolic's in the 80's sustained. Patient re [...] AM EST Office Visit Cardiology at [address] [phone] Mushtaq Murphy, ALUMINUM BOAT INSPECTOR Scheduled Orders Name Type Priority Associated Diagnoses [...] CBC (with Diff) (08/04/2024 6:08 AM EST) [facility] White Blood Cell 7.27 4.00 - [...] MD HEMATOLOGY ORDERABLE S [facility] [place] [address] * Magnesium (08/04/2024 6:08 AM EST) Magnesium 0.85 0.69 - 1.07 mMol/L 08/04/2024 7:07 AM [facility] Blood VENOUS BLOOD SPECIMEN / Unknown Venipuncture / Unknown 08/04/2024 6:08 AM EST 08/04/2024 6:19 AM EST Bridgette Stauffer MD CHEMISTRY ORDERABLES [facility] [place] [address] * Basic Metabolic Panel (08/04/2024 6:08 AM [...] 5 - 15 mMol/L 08/04/2024 7:07 AM [facility] Calcium 8.5 8.5 - 10.5 mg/dL 08/04/2024 7:07 AM [facility] Est Glomerular Filtration Rate - Male 74 mL/min/1. 73 m?? 08/04/2024 7:07 AM [facility] Stauffer MD CHEMISTRY ORDERABLES [facility] [place] [address] * (ABNORMAL) CBC (with Diff) (08/03/2024 5:16 AM EST) White Blood Cell 7.85 4.00 - 9.50 x10(3)/mc L 08/03/2024 5:29 AM [facility] Red Blood Cell 4.43(L) 4.58 - 5.54 x10(6)/mc L 08/03/2024 5:29 AM [facility] Hemoglobin 11.8(L) 13.7 - 16.5 g/dL 08/03/2024 5:29 AM [facility] Hematocrit 35.9(L) 40.5 - 48.5 % 08/03/2024 5:29 AM [facility] Mean Cell Volume 81.0(L) 82.9 - 93.1 fL 08/03/2024 5:29 AM [facility] Mean Cell Hemoglobin 26.6(L) 27.5 - 32.1 pg 08/03/2024 5:29 AM [facility] Mean Cell Hemoglobin Concentration 32.9 32.0 - 35.7 g/dL 08/03/2024 5:29 AM [facility] Platelet 142(L) 145 - 357 x10(3)/mc L 08/03/2024 5:29 AM [facility] Mean Platelet Volume 10.5 7.6 - 12.9 fL 08/03/2024 5:29 AM [facility] RDW Standard Deviation 42.5 36.0 - 45.0 fL 08/03/2024 5:29 AM [facility] RDW coefficient of variation 14.2(H) 11.4 - 13.8 % 08/03/2024 5:29 AM [facility] NRBC% auto 0.0 % 08/03/2024 5:29 AM [facility] NRBC Absolute <0.01 <0.01 x10(3)/mc L 08/03/2024 5:29 AM [facility] Neutrophil % 75.2 % 08/03/2024 5:29 AM [facility] Neutrophil Absolute (ANC) - Automated 5.91 1.70 - 6.10 x10(3)/mc L 08/03/2024 5:29 AM [facility] Lymph % 13.4 % 08/03/2024 5:29 AM [facility] Lymph Absolute 1.05 0.90 - 3.20 x10(3)/mc L 08/03/2024 5:29 AM [facility] Monocyte % 9.0 % 08/03/2024 5:29 AM [facility] Monocyte Absolute 0.71 0.30 - 0.90 x10(3)/mc L 08/03/2024 5:29 AM [facility] Eos % 1.7 % 08/03/2024 5:29 AM [facility] Eos Absolute 0.13 0.00 - 0.40 x10(3)/mc L 08/03/2024 5:29 AM [facility] Basophil % 0.4 % 08/03/2024 5:29 AM [facility] Baso Absolute <0.04 0.00 - 0.10 x10(3)/mc L 08/03/2024 5:29 AM EST [facility] Immature Gran % 0.3 % 5:29 AM [facility] Immature Gran Absolute <0.04 0.00 - 0.04 x10(3)/mc L 08/03/2024 5:29 AM [facility] Blood VENOUS BLOOD SPECIMEN / Unknown Venipuncture / Unknown 08/03/2024 5:16 AM EST 08/03/2024 5:23 AM EST Bridgette Stauffer MD HEMATOLOGY ORDERABLE S Performing Organization Address City/[facility]/ZIP Co de Phone Number [facility] [place] [address] * Magnesium (08/03/2024 5:16 AM EST) Magnesium 0.89 0.69 - 1.07 mMol/L 08/03/2024 5:56 AM [facility] Blood VENOUS BLOOD SPECIMEN / Unknown Venipuncture / Unknown 08/03/2024 5:16 AM EST 08/03/2024 5:23 AM EST Bridgette Stauffer MD CHEMISTRY ORDERABLES Performing Organization Address City/[facility]/ZIP Co de Phone Number [facility] [place] [address] * (ABNORMAL) Basic Metabolic Panel (08/03/2024 5:16 AM EST) Glucose 98 65 - 199 mg/dL 08/03/2024 5:56 AM [facility] Comment:Glucose Concentratio n >=200 mg/dL plus symptoms is consistent with Diabetes Mellitus. Blood Urea Nitrogen 16 10 - 20 mg/dL 08/03/2024 5:56 AM [facility] Creatinine 0.85 0.80 - 1.50 mg/dL 08/03/2024 5:56 AM [facility] Sodium 137 135 - 145 mMol/L 08/03/2024 5:56 AM [facility] Potassium 4.5 3.5 - 5.0 mMol/L 08/03/2024 5:56 AM EST [facility] Chloride 106 98 - 107 mMol/L 08/03/2024 5:56 AM [facility] Carbon Dioxide 21(L) 22 - 31 mMol/L 08/03/2024 5:56 AM [facility] Anion Gap 10 5 - 15 mMol/L 08/03/2024 5:56 AM [facility] Calcium 8.3(L) 8.5 - 10.5 mg/dL 08/03/2024 5:56 AM [facility] Est Glomerular Filtration Rate - Male 92 mL/min/1. 73 m?? 08/03/2024 5:56 AM [facility] [...] Stauffer MD CHEMISTRY ORDERABLES [facility] [place] [address] * POC, GLUCOSE (08/02/2024 7:47 AM EST) Glucometer, POC 89 65 - 199 mg/dL 08/02/2024 7:47 AM EST [facility] Comment:Supplemental ranges: <140 mg/dL before meals <180 mg/dL all other times of the day. Blood CAPILLARY BLOOD / Unknown 08/02/2024 7:47 AM EST 08/02/2024 7:47 AM EST Krystal Parker MD POINT OF CARE TEST O RDERABLES [facility] [place] [address] * (ABNORMAL) CBC (with Diff) (08/02/2024 4:20 AM EST) White Blood Cell 8.51 4.00 - 9.50 x10(3)/mc L 08/02/2024 4:50 AM [facility] Red Blood Cell 4.41(L) 4.58 - 5.54 x10(6)/mc L 08/02/2024 4:50 AM [facility] Hemoglobin 12.2(L) 13.7 - 16.5 g/dL 08/02/2024 4:50 AM [facility] Hematocrit 35.8(L) 40.5 - 48.5 % 08/02/2024 4:50 AM [facility] Mean Cell Volume 81.2(L) 82.9 - 93.1 fL 08/02/2024 4:50 AM [facility] Mean Cell Hemoglobin 27.7 27.5 - 32.1 pg 08/02/2024 4:50 AM [facility] Mean Cell Hemoglobin Concentration 34.1 32.0 - 35.7 g/dL 08/02/2024 4:50 AM [facility] Platelet 111(L) 145 - 357 x10(3)/mc L 08/02/2024 4:50 AM [facility] Mean Platelet Volume 11.1 7.6 - 12.9 fL 08/02/2024 4:50 AM [facility] RDW Standard Deviation 41.9 36.0 - 45.0 fL 08/02/2024 4:50 AM [facility] RDW coefficient of variation 14.1(H) 11.4 - 13.8 % 08/02/2024 4:50 AM [facility] NRBC% auto 0.0 % 08/02/2024 4:50 AM [facility] NRBC Absolute <0.01 <0.01 x10(3)/mc L 08/02/2024 4:50 AM [facility] Neutrophil % 77.7 % 08/02/2024 4:50 AM [facility] Neutrophil Absolute (ANC) - Automated 6.62(H) 1.70 - 6.10 x10(3)/mc L 08/02/2024 4:50 AM [facility] Lymph % 11.9 % 08/02/2024 4:50 AM [facility] Lymph Absolute 1.01 0.90 - 3.20 x10(3)/mc L 08/02/2024 4:50 AM [facility] Monocyte % 8.2 % 08/02/2024 4:50 AM [facility] Monocyte Absolute 0.70 0.30 - 0.90 x10(3)/mc L 08/02/2024 4:50 AM [facility] Eos % 1.4 % 08/02/2024 4:50 AM [facility] Eos Absolute 0.12 0.00 - 0.40 x10(3)/mc L 08/02/2024 4:50 AM [facility] Basophil % 0.4 % 08/02/2024 4:50 AM [facility] Baso Absolute <0.04 0.00 - 0.10 x10(3)/mc L 08/02/2024 4:50 AM [facility] Immature Gran % 0.4 % 4:50 AM [facility] Immature Gran Absolute <0.04 0.00 - 0.04 x10(3)/mc L 08/02/2024 4:50 AM [facility] Blood VENOUS BLOOD SPECIMEN / Unknown Venipuncture / Unknown 08/02/2024 4:20 AM EST 08/02/2024 4:37 AM EST Bridgette Stauffer MD HEMATOLOGY ORDERABLE S [facility] [place] [address] * Magnesium (08/02/2024 4:20 AM EST) Magnesium 0.79 0.69 - 1.07 mMol/L 08/02/2024 5:06 AM [facility] Blood VENOUS BLOOD SPECIMEN / Unknown Venipuncture / Unknown 08/02/2024 4:20 AM EST 08/02/2024 4:37 AM EST Bridgette Stauffer MD CHEMISTRY ORDERABLES Performing Organization Address City/[facility]/ZIP Co de Phone Number [facility] [place] [address] * (ABNORMAL) Basic Metabolic Panel (08/02/2024 4:20 AM EST) Glucose 110 65 - 199 mg/dL 08/02/2024 5:06 AM [facility] Comment:Glucose Concentratio n >=200 mg/dL plus symptoms is consistent with Diabetes Mellitus. Blood Urea Nitrogen 12 10 - 20 mg/dL 08/02/2024 5:06 AM [facility] Creatinine 0.90 0.80 - 1.50 mg/dL 08/02/2024 5:06 AM [facility] Sodium 139 135 - 145 mMol/L 08/02/2024 5:06 AM [facility] Potassium 4.0 3.5 - 5.0 mMol/L 08/02/2024 5:06 AM [facility] Chloride 108(H) 98 - 107 mMol/L 08/02/2024 5:06 AM [facility] Carbon Dioxide 23 22 - 31 mMol/L 08/02/2024 5:06 AM [facility] [...] Stauffer MD CHEMISTRY ORDERABLES [facility] [place] [address] * Potassium (08/01/2024 8:39 PM EST) Potassium 4.0 3.5 - 5.0 mMol/L 08/01/2024 9:21 PM EST [facility] Blood VENOUS BLOOD SPECIMEN / Unknown Venipuncture / Unknown 08/01/2024 8:39 PM EST 08/01/2024 8:51 PM EST Aubree Silverio MD CHEMISTRY ORDERABL ES Performing Organization Address City/[facility]/ZIP Co de Phone Number [facility] [place] [address] * POC, GLUCOSE (08/01/2024 8:35 PM EST) Glucometer, POC 112 65 - 199 mg/dL 08/01/2024 8:36 PM EST [facility] Comment:Supplemental ranges: <140 mg/dL before meals <180 mg/dL all other times of the day. Blood CAPILLARY BLOOD / Unknown 08/01/2024 8:35 PM EST 08/01/2024 8:36 PM EST Krystal Parker MD POINT OF CARE TEST O RDERASHAY [facility] [place] [address] * POC, GLUCOSE (08/01/2024 4:55 PM EST) Glucometer, POC 99 65 - 199 mg/dL 08/01/2024 4:56 PM EST [facility] Comment:Supplemental ranges: <140 mg/dL before meals <180 mg/dL all other times of the day. Blood CAPILLARY BLOOD / Unknown 08/01/2024 4:55 PM EST 08/01/2024 4:56 PM EST Krystal Parker MD POINT OF CARE TEST O JOSH Performing Organization Address [facility]/ZIP Co de Phone Number [facility] [place] [address] * POC, GLUCOSE (08/01/2024 12:42 PM EST) Glucometer, POC 130 65 - 199 mg/dL 08/01/2024 12:43 PM EST [facility] Comment:Supplemental ranges: <140 mg/dL before meals <180 mg/dL all other times of the day. Blood CAPILLARY BLOOD / Unknown 08/01/2024 12:42 PM EST 08/01/2024 12:43 PM EST Krystal Parker MD POINT OF CARE TEST O JOSH [facility] [place] [address] * (ABNORMAL) Cooximetry, POC (08/01/2024 10:45 AM EST) pO2, Coox 32 mmHg 08/01/2024 10:48 AM [facility] Hemoglobin, Coox 12.9(L) 13.7 - 16.5 g/dL 08/01/2024 10:48 AM [facility] Oxyhemoglobin, Coox 66.7 % 08/01/2024 10:48 AM [facility] Carboxyhemoglo bin, Coox 1.1 % 08/01/2024 10:48 AM [facility] Comment: Nonsmokers: 0.5-1.5% COHB ?? Smokers: Variable ??but usually less than 10% ?? Toxic: 20-30% COHB ?? Lethal: Greater than 60% COHB Methemoglobin, Coox 0.3 <=1.5 % 08/01/2024 10:48 AM [facility] Blood (Mixed Venous) 08/01/2024 10:45 AM EST 08/01/2024 10:48 AM EST Krystal Parker MD POINT OF CARE TEST O RDERABLES [facility] [place] [address] * Potassium (08/01/2024 8:20 AM EST) Pathologist [facility] Potassium 4.0 3.5 - 5.0 mMol/L 08/01/2024 10:17 AM EST [facility] Blood ARTERIAL BLOOD / Unknown Venipuncture / Unknown 08/01/2024 8:20 AM EST 08/01/2024 8:30 AM EST Aubree Silverio MD CHEMISTRY ORDERABL ES [facility] [place] [address] * POC, GLUCOSE (08/01/2024 7:44 AM EST) [facility] Glucometer, POC 86 65 - 199 mg/dL 08/01/2024 7:44 AM [facility] Comment:Supplemental ranges: <140 mg/dL before meals <180 mg/dL all other times of the day. Blood CAPILLARY BLOOD / Unknown 08/01/2024 7:44 AM EST 08/01/2024 7:44 AM EST Krystal Parker MD POINT OF CARE TEST O RDERABLES [facility] [place] [address] * (ABNORMAL) CBC (with Diff) (08/01/2024 4:18 AM EST) [facility] White Blood Cell 8.51 4.00 - 9.50 x10(3)/mc L 08/01/2024 4:53 AM [facility] Red Blood Cell 4.12(L) 4.58 - 5.54 x10(6)/mc L 08/01/2024 4:53 AM [facility] Hemoglobin 11.2(L) 13.7 - 16.5 g/dL 08/01/2024 4:53 AM [facility] Hematocrit 33.8(L) 40.5 - 48.5 % 08/01/2024 4:53 AM [facility] Mean Cell Volume 82.0(L) 82.9 - 93.1 fL 08/01/2024 4:53 AM [facility] Mean Cell Hemoglobin 27.2(L) 27.5 - 32.1 pg 08/01/2024 4:53 AM [facility] Mean Cell Hemoglobin Concentration 33.1 32.0 - 35.7 g/dL 08/01/2024 4:53 AM [facility] Platelet 94(L) 145 - 357 x10(3)/mc L 08/01/2024 4:53 AM [facility] Mean Platelet Volume 10.9 7.6 - 12.9 fL 08/01/2024 4:53 AM [facility] RDW Standard Deviation 44.2 36.0 - 45.0 fL 08/01/2024 4:53 AM [facility] RDW coefficient of variation 14.7(H) 11.4 - 13.8 % 08/01/2024 4:53 AM [facility] NRBC% auto 0.0 % 08/01/2024 4:53 AM [facility] NRBC Absolute <0.01 <0.01 x10(3)/mc L 08/01/2024 4:53 AM [facility] Neutrophil % 82.7 % 08/01/2024 4:53 AM [facility] Neutrophil Absolute (ANC) - Automated 7.04(H) 1.70 - 6.10 x10(3)/mc L 08/01/2024 4:53 AM [facility] Lymph % 8.6 % 08/01/2024 4:53 AM [facility] Lymph Absolute 0.73(L) 0.90 - 3.20 x10(3)/mc L 08/01/2024 4:53 AM [facility] Monocyte % 7.6 % 08/01/2024 4:53 AM [facility] Monocyte Absolute 0.65 0.30 - 0.90 x10(3)/mc L 08/01/2024 4:53 AM [facility] Eos % 0.5 % 08/01/2024 4:53 AM [facility] Eos Absolute 0.04 0.00 - 0.40 x10(3)/mc L 08/01/2024 4:53 AM [facility] Basophil % 0.2 % 08/01/2024 4:53 AM [facility] Baso Absolute <0.04 0.00 - 0.10 x10(3)/mc L 08/01/2024 4:53 AM [facility] Immature Gran % 0.4 % 4:53 AM EST [facility] Immature Gran Absolute <0.04 0.00 - 0.04 x10(3)/mc L 08/01/2024 4:53 AM [facility] Blood VENOUS BLOOD SPECIMEN / Unknown Venipuncture / Unknown 08/01/2024 4:18 AM EST 08/01/2024 4:29 AM EST Bridgette Stauffer MD HEMATOLOGY ORDERABLE S Performing Organization Address [facility] Co de Phone Number [facility] [place] [address] * Magnesium (08/01/2024 4:18 AM EST) Pathologist [facility] Magnesium 0.74 0.69 - 1.07 mMol/L 08/01/2024 5:00 AM [facility] Blood VENOUS BLOOD SPECIMEN / Unknown Venipuncture / Unknown 08/01/2024 4:18 AM EST 08/01/2024 4:29 AM EST Bridgette Stauffer MD CHEMISTRY ORDERABLES Performing Organization Address City/[facility] Co de Phone Number [facility] [place] [address] * (ABNORMAL) Basic Metabolic Panel (08/01/2024 4:18 AM EST) Pathologist [facility] Glucose 107 65 - 199 mg/dL 08/01/2024 5:00 AM [facility] Comment:Glucose Concentratio n >=200 mg/dL plus symptoms is consistent with Diabetes Mellitus. Blood Urea Nitrogen 8(L) 10 - 20 mg/dL 08/01/2024 5:00 AM [facility] Creatinine 0.82 0.80 - 1.50 mg/dL 08/01/2024 5:00 AM [facility] Sodium 137 135 - 145 mMol/L 08/01/2024 5:00 AM [facility] Potassium 3.9 3.5 - 5.0 mMol/L 08/01/2024 5:00 AM [facility] Chloride 108(H) 98 - 107 mMol/L 08/01/2024 5:00 AM [facility] Carbon Dioxide 21(L) 22 - 31 mMol/L 08/01/2024 5:00 AM [facility] Anion Gap 8 5 - 15 mMol/L 08/01/2024 5:00 AM [facility] Calcium 7.7(L) 8.5 - 10.5 mg/dL 08/01/2024 5:00 AM [facility] Est Glomerular Filtration Rate - Male 93 mL/min/1. 73 m?? 08/01/2024 5:00 AM [facility] [...] Stauffer MD CHEMISTRY ORDERABLES [facility] [place] [address] * POC, GLUCOSE (07/31/2024 8:41 PM EST) Glucometer, POC 73 65 - 199 mg/dL 07/31/2024 8:41 PM EST [facility] Comment:Supplemental ranges: <140 mg/dL before meals <180 mg/dL all other times of the day. Blood CAPILLARY BLOOD / Unknown 07/31/2024 8:41 PM EST 07/31/2024 8:41 PM EST Krystal Parker MD POINT OF CARE TEST O RDERABLES Performing Organization Address [facility]/State/ZIP Co de Phone Number [facility] [place] [address] * CARDIAC CATHETERIZATION (07/31/2024 5:53 PM EST) Anatomical Region Laterality Modality Other Narrative 08/01/2024 12:37 PM EST ?[facility] ? Cardiac Catheterization/Intervention Report ? Patient Name: Korey Montoya Kyrie. ? Procedure Date: 07/31/2024 ? A #: [id number] ? Primary Physician: Janelle, Maldonado T ? Case #: [id number] ? File Name: [id number] ? Catheterization Order Number: [id number] ? [facility] ? Final Report [place], [place] ? Patient Name: ? Korey Montoya ?ID#: [id number] ? : ?1950 ? Procedure Date: ? [...] ? 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 [...] Maldonado Luis MD - 08/01/2024 [facility] Cardiac Catheterization/Intervention Report Patient Name: Korey Montoya Procedure Date: 07/31/2024 A #: [id number] Primary Physician: Maldonado Luis Case #: [id number] File Name: [id number] Catheterization Order Number: [id number] [facility] FinalReport [place], [place] Patient Name: Korey Montoya ID#:[id number] :1950 Procedure Date: July 31, 2024 Case [...] was designated as ASA Class IV. The [facility] clinical frailtyscale is 4: [...] procedures. 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 [...] * POC, GLUCOSE (07/31/2024 11:04 AM EST) [facility] Glucometer, POC 82 65 - 199 mg/dL 07/31/2024 11:04 AM EST [facility] Comment:Supplemental ranges: <140 mg/dL before meals <180 mg/dL all other times of the day. Blood CAPILLARY BLOOD / Unknown 07/31/2024 11:04 AM EST 07/31/2024 11:04 AM EST Krystal Parker MD POINT OF CARE TEST O RDERABLES [facility] [place] [address] * (ABNORMAL) Blood Gas, Arterial POC (07/31/2024 [...] Organization Address City/[facility]/ZIP Co de Phone Number [facility] [place] [address] * POC, GLUCOSE (07/31/2024 7:47 AM EST) [facility] Signature Glucometer, POC 82 65 - 199 mg/dL 07/31/2024 7:53 AM [facility] Comment:Supplemental ranges: <140 mg/dL before meals <180 mg/dL all other times of the day. Blood CAPILLARY BLOOD / Unknown 07/31/2024 7:47 AM EST 07/31/2024 7:53 AM EST Krystal Parker MD POINT OF CARE TEST O RDERABLES Performing Organization Address City/[facility]/ZIP Co de Phone Number [facility] [place] [address] * (ABNORMAL) CBC (with Diff) (07/31/2024 1:08 AM EST) White Blood Cell 10.25(H) 4.00 - 9.50 x10(3)/mc L 07/31/2024 1:28 AM [facility] Red Blood Cell 4.13(L) 4.58 - 5.54 x10(6)/mc L 07/31/2024 1:28 AM [facility] Hemoglobin 11.2(L) 13.7 - 16.5 g/dL 07/31/2024 1:28 AM [facility] Hematocrit 33.9(L) 40.5 - 48.5 % 07/31/2024 1:28 AM [facility] Mean Cell Volume 82.1(L) 82.9 - 93.1 fL 07/31/2024 1:28 AM [facility] Mean Cell Hemoglobin 27.1(L) 27.5 - 32.1 pg 07/31/2024 1:28 AM [facility] Mean Cell Hemoglobin Concentration 33.0 32.0 - 35.7 g/dL 07/31/2024 1:28 AM [facility] Platelet 109(L) 145 - 357 x10(3)/mc L 07/31/2024 1:28 AM [facility] Mean Platelet Volume 10.4 7.6 - 12.9 fL 07/31/2024 1:28 AM [facility] RDW Standard Deviation 45.1(H) 36.0 - 45.0 fL 07/31/2024 1:28 AM [facility] RDW coefficient of variation 15.1(H) 11.4 - 13.8 % 07/31/2024 1:28 AM [facility] NRBC% auto 0.0 % 07/31/2024 1:28 AM [facility] NRBC Absolute <0.01 <0.01 x10(3)/mc L 07/31/2024 1:28 AM [facility] Neutrophil % 79.7 % 07/31/2024 1:28 AM [facility] Neutrophil Absolute (ANC) - Automated 8.17(H) 1.70 - 6.10 x10(3)/mc L 07/31/2024 1:28 AM [facility] Lymph % 12.8 % 07/31/2024 1:28 AM [facility] Lymph Absolute 1.31 0.90 - 3.20 x10(3)/mc L 07/31/2024 1:28 AM [facility] Monocyte % 6.9 % 07/31/2024 1:28 AM [facility] Monocyte Absolute 0.71 0.30 - 0.90 x10(3)/mc L 07/31/2024 1:28 AM [facility] Eos % 0.1 % 07/31/2024 1:28 AM [facility] Eos Absolute <0.04 0.00 - 0.40 x10(3)/mc L 07/31/2024 1:28 AM [facility] Basophil % 0.3 % 07/31/2024 1:28 AM [facility] Baso Absolute <0.04 0.00 - 0.10 x10(3)/mc L 07/31/2024 1:28 AM [facility] Immature Gran % 0.2 % 1:28 AM [facility] Immature Gran Absolute <0.04 0.00 - 0.04 x10(3)/mc L 07/31/2024 1:28 AM [facility] Blood VENOUS BLOOD SPECIMEN / Unknown Venipuncture / Unknown 07/31/2024 1:08 AM EST 07/31/2024 1:18 AM EST Bridgette Stauffer MD HEMATOLOGY ORDERABLE S [facility] [place] [address] * Magnesium (07/31/2024 1:08 AM EST) Magnesium 0.89 0.69 - 1.07 mMol/L 07/31/2024 1:46 AM EST [facility] Blood VENOUS BLOOD SPECIMEN / Unknown Venipuncture / Unknown 07/31/2024 1:08 AM EST 07/31/2024 1:18 AM EST Bridgette Stauffer MD CHEMISTRY ORDERABLES [facility] [address] [place] [address] * (ABNORMAL) Basic Metabolic Panel (07/31/2024 1:08 AM EST) Pathologist [facility] Glucose 97 65 - 199 mg/dL 07/31/2024 1:46 AM EST [facility] Comment:Glucose Concentratio n >=200 mg/dL plus symptoms is consistent with Diabetes Mellitus. Blood Urea Nitrogen 11 10 - 20 mg/dL 07/31/2024 1:46 AM [facility] Creatinine 0.96 0.80 - 1.50 mg/dL 07/31/2024 1:46 AM EST [facility] Sodium 140 135 - 145 mMol/L 07/31/2024 1:46 AM [facility] Potassium 4.1 3.5 - 5.0 mMol/L 07/31/2024 1:46 AM [facility] Chloride 110(H) 98 - 107 mMol/L 07/31/2024 1:46 AM [facility] Carbon Dioxide 24 22 - 31 mMol/L 07/31/2024 1:46 AM [facility] Anion Gap 6 5 - 15 mMol/L 07/31/2024 1:46 AM [facility] Calcium 7.7(L) 8.5 - 10.5 mg/dL 07/31/2024 1:46 AM [facility] Est Glomerular Filtration Rate - Male 84 mL/min/1. 73 m?? 07/31/2024 1:46 AM [facility] Stauffer MD CHEMISTRY ORDERABLES [facility] [place] [address] * (ABNORMAL) Hepatic Function Panel (07/31/2024 1:08 [...] 0.0 - 0.3 mg/dL 07/31/2024 1:46 AM [facility] Protein, Total 5.0(L) 6.1 - 8.0 g/dL 07/31/2024 1:46 AM [facility] Blood VENOUS BLOOD SPECIMEN / Unknown Venipuncture / Unknown 07/31/2024 1:08 AM EST 07/31/2024 1:18 AM EST Krytsal Parker MD CHEMISTRY ORDERABLES Performing Organization Address [facility]/ZIP Co de Phone Number [facility] [place] [address] * POC, GLUCOSE (07/30/2024 8:03 PM EST) Glucometer, POC 86 65 - 199 mg/dL 07/30/2024 8:03 PM EST [facility] Comment:Supplemental ranges: <140 mg/dL before meals <180 mg/dL all other times of the day. Blood CAPILLARY BLOOD / Unknown 07/30/2024 8:03 PM EST 07/30/2024 8:03 PM EST Krystal Parker MD POINT OF CARE TEST O RDERABLES Performing Organization Address [facility]/ZIP Co de Phone Number [facility] [place] [address] * Potassium (07/30/2024 8:03 PM EST) Pathologist [facility] Potassium 3.8 3.5 - 5.0 mMol/L 07/30/2024 9:13 PM EST [facility] Blood VENOUS BLOOD SPECIMEN / Unknown Venipuncture / Unknown 07/30/2024 8:03 PM EST 07/30/2024 8:22 PM EST Aubree Silverio MD CHEMISTRY ORDERABL ES Performing Organization Address City/[facility]/ZIP Co de Phone Number [facility] [place] [address] * POC, GLUCOSE (07/30/2024 6:23 PM EST) Glucometer, POC 93 65 - 199 mg/dL 07/30/2024 6:24 PM EST [facility] Comment:Supplemental ranges: <140 mg/dL before meals <180 mg/dL all other times of the day. Blood CAPILLARY BLOOD / Unknown 07/30/2024 6:23 PM EST 07/30/2024 6:24 PM EST Krystal Parker MD POINT OF CARE TEST O RDERABLES Performing Organization Address [facility] Co de Phone Number [facility] [place] [address] * POC, GLUCOSE (07/30/2024 5:08 PM EST) Glucometer, POC 78 65 - 199 mg/dL 07/30/2024 5:08 PM EST [facility] Comment:Supplemental ranges: <140 mg/dL before meals <180 mg/dL all other times of the day. Blood CAPILLARY BLOOD / Unknown 07/30/2024 5:08 PM EST 07/30/2024 5:08 PM EST Krystal Parker MD POINT OF CARE TEST O JOSH Performing Organization Address [facility] Co de Phone Number [facility] [place] [address] * (ABNORMAL) Phosphorus (07/30/2024 3:08 PM EST) Phosphorus 2.1(L) 2.5 - 4.5 mg/dL 07/30/2024 3:58 PM EST [facility] Blood VENOUS BLOOD SPECIMEN / Unknown Venipuncture / Unknown 07/30/2024 3:08 PM EST 07/30/2024 3:12 PM EST Aubree Silverio MD CHEMISTRY ORDERABL ES Performing Organization Address [facility] Co de Phone Number [facility] [place] [address] * Magnesium (07/30/2024 3:08 PM EST) Magnesium 0.90 0.69 - 1.07 mMol/L 07/30/2024 3:58 PM [facility] Blood VENOUS BLOOD SPECIMEN / Unknown Venipuncture / Unknown 07/30/2024 3:08 PM EST 07/30/2024 3:12 PM EST Aubree Silverio MD CHEMISTRY ORDERABL ES [facility] [place] [address] * (ABNORMAL) Basic Metabolic Panel (07/30/2024 3:08 PM EST) Glucose 105 65 - 199 mg/dL 07/30/2024 4:17 PM [facility] Comment:Glucose Concentratio n >=200 mg/dL plus symptoms is consistent with Diabetes Mellitus. Blood Urea Nitrogen 13 10 - 20 mg/dL 07/30/2024 4:17 PM [facility] Creatinine 1.01 0.80 - 1.50 mg/dL 07/30/2024 4:17 PM [facility] Sodium 141 135 - 145 mMol/L 07/30/2024 4:17 PM [facility] Potassium 3.4(L) 3.5 - 5.0 mMol/L 07/30/2024 4:17 PM [facility] Chloride 109(H) 98 - 107 mMol/L 07/30/2024 4:17 PM [facility] Carbon Dioxide 21(L) 22 - 31 mMol/L 07/30/2024 4:17 PM [facility] Anion Gap 11 5 - 15 mMol/L 07/30/2024 4:17 PM [facility] Calcium 7.9(L) 8.5 - 10.5 mg/dL 07/30/2024 4:17 PM [facility] Est Glomerular Filtration Rate - Male 79 mL/min/1. 73 m?? 07/30/2024 4:17 PM [facility] [...] CHEMISTRY ORDERABL ES [facility] [place] [address] * ECHO LMTD W CONTRAST W LMTD SPEC DOPP COLOR DOPP (07/30/2024 11:42 AM EST) Anatomical Region Laterality Modality Cardiac Other 07/30/2024 10:2 2 AM EST Narrative 07/30/2024 12:34 PM EST [address] [place] [address] ? Echocardiogram Report Name: KOREY MONTOYA ? Study Date: 07/30/2024 10:22 AMBP: 124/66 mmHg : 1950 ? Height: 168 cm ? Account: [id number] Age: 74 yrs ? Weight: 65 kg [...] Compared to the overnight study by the contract manager fellow the impella position is stable. 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 Procedure Limited - 20343. Image enhancement Definity was used for both [...] Note Kathleen Banda MD - 07/30/2024 [address] [place] [address] Echocardiogram Report Name: KOREY MONTOYA Study Date: 0:22 AMBP: 124/66 mmHg : 1950 Height: 168 cm Account: [id number] Age: 74 yrs Weight: 65 kg Gender: [...] Compared to the overnight study by the contract manager fellow the impella positionis stable. The global left ventricular systolic function has improvedpredominantly via recruitment outside the LAD territory which remains akinetic. Procedure Limited - 06719. Image enhancement Definity was used for both [...] OF CARE TEST ORDERABLES [facility] [place] [address] * (ABNORMAL) Blood Gas, Arterial POC (07/30/2024 8:16 AM EST) pH, Arterial 7.44 7.35 - 7.45 07/30/2024 8:17 AM [facility] PCO2, Arterial 29(L) 35 - 45 mmHg 07/30/2024 8:17 AM [facility] PO2, Arterial 109(H) 85 - 104 mmHg 07/30/2024 8:17 AM [facility] Bicarbonate, Arterial 19.4(L) 20.0 - 26.0 mmol/L 07/30/2024 8:17 AM [facility] Base Excess, Arterial -4.7(L) -3.0 - 3.0 mmol/L 07/30/2024 8:17 AM [facility] Hemoglobin, Arterial 12.2(L) 13.7 - 16.5 g/dL 07/30/2024 8:17 AM [facility] Oxyhemoglobin, Arterial 97.1(H) 94.0 - 97.0 % 07/30/2024 8:17 AM [facility] Carboxyhemoglob in, Arterial 1.0 % 07/30/2024 8:17 AM [facility] Comment: Nonsmokers: 0.5-1.5% COHB ?? Smokers: Variable ??but usually less than 10% ?? Toxic: 20-30% COHB ?? Lethal: Greater than 60% COHB Methemoglobin, Arterial 0.1 <=1.5 % 07/30/2024 8:17 AM [facility] Sodium, Arterial 132(L) 135 - 145 mmol/L 07/30/2024 8:17 AM EST [facility] Potassium, Arterial 3.9 3.5 - 5.0 mmol/L 07/30/2024 8:17 AM [facility] Chloride, Arterial 105 98 - 107 mmol/L 07/30/2024 8:17 AM [facility] Lactate, Arterial 1.2 0.5 - 2.2 mmol/L 07/30/2024 8:17 AM [facility] Fraction of Inspired Oxygen 21 % 07/30/2024 8:17 AM [facility] PF Ratio 519 Ratio 07/30/2024 8:17 AM [facility] Comment:PF ratio calculated using the non-temperature corrected pO2 result. IONIZED CALCIUM, ARTERIAL 1.15 1.15 - 1.33 mmol/L 07/30/2024 8:17 AM [facility] Blood ARTERIAL BLOOD / Unknown 07/30/2024 8:16 AM EST 07/30/2024 8:17 AM EST Aubree Silverio MD POINT OF CARE TEST ORDERABLES [facility] [place] [address] * (ABNORMAL) Troponin - Single (07/30/2024 8:09 [...] can be found in the [facility] Test Catalog Troponin - [email or web address] Reference: Fourth [place] Definition of Myocardial Infarction. Journal of the [place] [employer] 2018;72:9980-5195 Blood VENOUS BLOOD SPECIMEN / Unknown Venipuncture / Unknown 07/30/2024 8:09 AM EST 07/30/2024 8:26 AM EST Aubree Silverio MD CHEMISTRY ORDERABL ES Performing Organization Address [facility] Co de Phone Number [facility] [place] [address] * POC, GLUCOSE (07/30/2024 7:40 AM EST) [facility] Glucometer, POC 111 65 - 199 mg/dL 07/30/2024 7:40 AM EST [facility] Comment:Supplemental ranges: <140 mg/dL before meals <180 mg/dL all other times of the day. Blood CAPILLARY BLOOD / Unknown 07/30/2024 7:40 AM EST 07/30/2024 7:40 AM EST Aubree Silverio MD POINT OF CARE TEST ORDERABLES Performing Organization Address City/[facility]/ZIP Co de Phone Number [facility] [place] [address] * (ABNORMAL) CBC (with Diff) (07/30/2024 2:11 AM EST) White Blood Cell 11.25(H) 4.00 - 9.50 x10(3)/mc L 07/30/2024 2:33 AM EST [facility] Red Blood Cell 4.50(L) 4.58 - 5.54 x10(6)/mc L 07/30/2024 2:33 AM [facility] Hemoglobin 12.2(L) 13.7 - 16.5 g/dL 07/30/2024 2:33 AM [facility] Hematocrit 37.1(L) 40.5 - 48.5 % 07/30/2024 2:33 AM [facility] Mean Cell Volume 82.4(L) 82.9 - 93.1 fL 07/30/2024 2:33 AM [facility] Mean Cell Hemoglobin 27.1(L) 27.5 - 32.1 pg 07/30/2024 2:33 AM [facility] Mean Cell Hemoglobin Concentration 32.9 32.0 - 35.7 g/dL 07/30/2024 2:33 AM [facility] Platelet 166 145 - 357 x10(3)/mc L 07/30/2024 2:33 AM [facility] Mean Platelet Volume 10.6 7.6 - 12.9 fL 07/30/2024 2:33 AM [facility] RDW Standard Deviation 44.6 36.0 - 45.0 fL 07/30/2024 2:33 AM [facility] RDW coefficient of variation 14.6(H) 11.4 - 13.8 % 07/30/2024 2:33 AM [facility] NRBC% auto 0.0 % 07/30/2024 2:33 AM [facility] NRBC Absolute <0.01 <0.01 x10(3)/mc L 07/30/2024 2:33 AM [facility] Neutrophil % 88.9 % 07/30/2024 2:33 AM [facility] Neutrophil Absolute (ANC) - Automated 10.00(H) 1.70 - 6.10 x10(3)/mc L 07/30/2024 2:33 AM [facility] Lymph % 5.1 % 07/30/2024 2:33 AM [facility] Lymph Absolute 0.57(L) 0.90 - 3.20 x10(3)/mc L 07/30/2024 2:33 AM [facility] Monocyte % 5.4 % 07/30/2024 2:33 AM [facility] Monocyte Absolute 0.61 0.30 - 0.90 x10(3)/mc L 07/30/2024 2:33 AM EST [facility] Eos % 0.0 % 07/30/2024 2:33 AM [facility] Eos Absolute <0.04 0.00 - 0.40 x10(3)/mc L 07/30/2024 2:33 AM [facility] Basophil % 0.2 % 07/30/2024 2:33 AM [facility] Baso Absolute <0.04 0.00 - 0.10 x10(3)/mc L 07/30/2024 2:33 AM [facility] Immature Gran % 0.4 % 2:33 AM [facility] Immature Gran Absolute 0.05(H) 0.00 - 0.04 x10(3)/mc L 07/30/2024 2:33 AM [facility] Blood VENOUS BLOOD SPECIMEN / Unknown Venipuncture / Unknown 07/30/2024 2:11 AM EST 07/30/2024 2:22 AM EST Bridgette Stauffer MD HEMATOLOGY ORDERABLE S [facility] [place] [address] * Magnesium (07/30/2024 2:11 AM EST) Magnesium 1.01 0.69 - 1.07 mMol/L 07/30/2024 2:51 AM [facility] Blood VENOUS BLOOD SPECIMEN / Unknown Venipuncture / Unknown 07/30/2024 2:11 AM EST 07/30/2024 2:22 AM EST Bridgette Stauffer MD CHEMISTRY ORDERABLES [facility] [place] [address] * (ABNORMAL) Basic Metabolic Panel (07/30/2024 2:11 AM EST) Glucose 190 65 - 199 mg/dL 07/30/2024 2:51 AM [facility] Comment:Glucose Concentratio n >=200 mg/dL plus symptoms is consistent with Diabetes Mellitus. Blood Urea Nitrogen 15 10 - 20 mg/dL 07/30/2024 2:51 AM [facility] Creatinine 0.88 0.80 - 1.50 mg/dL 07/30/2024 2:51 AM [facility] Sodium 135 135 - 145 mMol/L 07/30/2024 2:51 AM [facility] Potassium 4.9 3.5 - 5.0 mMol/L 07/30/2024 2:51 AM [facility] Chloride 105 98 - 107 mMol/L 07/30/2024 2:51 AM [facility] Carbon Dioxide 19(L) 22 - 31 mMol/L 07/30/2024 2:51 AM [facility] Anion Gap 11 5 - 15 mMol/L 07/30/2024 2:51 AM [facility] Calcium 7.7(L) 8.5 - 10.5 mg/dL 07/30/2024 2:51 AM [facility] Est Glomerular Filtration Rate - Male 91 mL/min/1. 73 m?? 07/30/2024 2:51 AM [facility] [...] Organization Address City/[facility]/ZIP Co de Phone Number [facility] [place] [address] * (ABNORMAL) Cooximetry, POC (07/30/2024 1:00 AM EST) pO2, Coox 28 mmHg 07/30/2024 1:03 AM [facility] Hemoglobin, Coox 12.7(L) 13.7 - 16.5 g/dL 07/30/2024 1:03 AM EST [facility] Oxyhemoglobin, Coox 54.9 % 07/30/2024 1:03 AM EST [facility] Carboxyhemoglo bin, Coox 1.0 % [...] OF CARE TEST ORDERABLES Performing Organization Address [facility] Co de Phone Number [facility] [place] [address] * (ABNORMAL) Blood Gas, Arterial POC (07/30/2024 12:57 AM EST) pH, Arterial 7.38 7.35 - 7.45 07/30/2024 12:58 AM [facility] PCO2, Arterial 34(L) 35 - 45 mmHg 07/30/2024 12:58 AM [facility] PO2, Arterial 141(H) 85 - 104 mmHg 07/30/2024 12:58 AM [facility] Bicarbonate, Arterial 19.5(L) 20.0 - 26.0 mmol/L 07/30/2024 12:58 AM [facility] Base Excess, Arterial -5.6(L) -3.0 - 3.0 mmol/L 07/30/2024 12:58 AM [facility] Hemoglobin, Arterial 13.0(L) 13.7 - 16.5 g/dL 07/30/2024 12:58 AM [facility] Oxyhemoglobin, Arterial 98.4(H) 94.0 - 97.0 % 07/30/2024 12:58 AM [facility] Carboxyhemoglobin , Arterial 0.4 % 07/30/2024 12:58 AM [facility] Comment: Nonsmokers: 0.5-1.5% COHB ?? Smokers: Variable ??but usually less than 10% ?? Toxic: 20-30% COHB ?? Lethal: Greater than 60% COHB Methemoglobin, Arterial 0.1 <=1.5 % 07/30/2024 12:58 AM [facility] Sodium, Arterial 130(L) 135 - 145 mmol/L 07/30/2024 12:58 AM [facility] Potassium, Arterial 4.5 3.5 - 5.0 mmol/L 07/30/2024 12:58 AM [facility] Chloride, Arterial 104 98 - 107 mmol/L 07/30/2024 12:58 AM [facility] Lactate, Arterial 1.3 0.5 - 2.2 mmol/L 07/30/2024 12:58 AM [facility] Flow Rate 2.0 L/min [...] OF CARE TEST ORDERABLES [facility] [place] [id number] * (ABNORMAL) Troponin - Single (07/29/2024 10:31 PM EST) Pathologist [facility] Troponin-T, High [...] can be found in the [facility] Test Catalog Troponin - [email or web address] Reference: Fourth [place] Definition of Myocardial Infarction. Journal of the [place] [employer] 2018;72:5819-4271 Blood VENOUS BLOOD SPECIMEN / Unknown Venipuncture / Unknown 07/29/2024 10:31 PM EST 07/29/2024 10:36 PM EST Yrn Velazquez MD CHEMISTRY ORDERABL ES Performing Organization Address City/[facility] [facility]/ZIP Co de Phone Number [facility] [place] [address] * Potassium (07/29/2024 8:11 PM EST) Potassium 4.1 3.5 - 5.0 mMol/L 07/29/2024 8:52 PM EST [facility] Blood VENOUS BLOOD SPECIMEN / Unknown Venipuncture / Unknown 07/29/2024 8:11 PM EST 07/29/2024 8:16 PM EST Aubree Silverio MD CHEMISTRY ORDERABL ES Performing Organization Address [facility]/ZIP Co de Phone Number [facility] [place] [address] * (ABNORMAL) Troponin - Single (07/29/2024 8:11 [...] can be found in the [facility] Test Catalog Troponin - [email or web address]/catalogs/565/files/92389 Reference: Fourth [place] Definition of Myocardial Infarction. Journal of the [place] College of Cardiology 2018;72:7671-8293 Blood VENOUS BLOOD SPECIMEN / Unknown Venipuncture / Unknown 07/29/2024 8:11 PM EST 07/29/2024 8:16 PM EST Aubree Silverio MD CHEMISTRY ORDERABL ES Performing Organization Address City/[facility]/ZIP Co de Phone Number [facility] [place] [address] * (ABNORMAL) Phosphorus (07/29/2024 8:11 PM EST) Phosphorus 2.1(L) 2.5 - 4.5 mg/dL 07/29/2024 8:52 PM EST [facility] Blood VENOUS BLOOD SPECIMEN / Unknown Venipuncture / Unknown 07/29/2024 8:11 PM EST 07/29/2024 8:16 PM EST Aubree Silverio MD CHEMISTRY ORDERABL ES Performing Organization Address City/[facility]/ZIP Co de Phone Number [facility] [place] [address] * POC, GLUCOSE (07/29/2024 8:09 PM EST) [...] Organization Address City/[facility]/ZIP Co de Phone Number [facility] [place] [address] * ABORH RECHECK (07/29/2024 6:43 PM EST) Pathologist [facility] ABORH Recheck AB POSITIVE 07/29/2024 10:13 PM EST [facility] BLOOD BANK LABORATORY Blood VENOUS BLOOD SPECIMEN / Unknown Venipuncture / Unknown 07/29/2024 6:43 PM EST 07/29/2024 7:15 PM EST Aubree Silverio MD BLOOD BANK LAB ORD ERABLES Performing Organization Address City/[facility] Co de Phone Number [facility] [place] [address] * POC, GLUCOSE (07/29/2024 5:57 PM EST) [facility] Glucometer, POC 166 65 - 199 mg/dL 07/29/2024 5:57 PM EST [facility] Comment:Supplemental ranges: <140 mg/dL before meals <180 mg/dL all other times of the day. Blood CAPILLARY BLOOD / Unknown 07/29/2024 5:57 PM EST 07/29/2024 5:57 PM EST Aubree Silverio MD POINT OF CARE TEST ORDERABLES Performing Organization Address City/[facility]/ZIP Co de Phone Number [facility] [place] [address] * Type and screen ([facility]/CGP/MAGALIE) (07/29/2024 5:56 PM EST) ABORH Type AB POSITIVE 07/29/2024 9:44 PM EST [facility] BLOOD BANK LABORATORY PATIENT HISTORY Not Found 07/29/2024 9:44 PM EST [facility] BLOOD BANK LABORATORY Expires at [id number] on: 08/01/2024 07/29/2024 9:44 PM EST [facility] BLOOD BANK LABORATORY ANTIBODY SCREEN AUTOMATED Negative 07/29/2024 9:44 PM EST [facility] BLOOD BANK LABORATORY T&S only valid at [facility] LAB 07/29/2024 9:44 PM EST [facility] BLOOD BANK LABORATORY Blood VENOUS BLOOD SPECIMEN / Unknown Venipuncture / Unknown 07/29/2024 5:56 PM EST 07/29/2024 6:07 PM EST Narrative [facility] BLOOD BANK LABORATORY - 07/29/2024 9:44 PM EST This Type and Screen result is only valid at the [facility] Hospital Aubree Silverio MD BLOOD BANK LAB ORD ERABLES [facility] [place] [address] * (ABNORMAL) Troponin - Single (07/29/2024 4:52 PM EST) [facility] Troponin-T, High Sensitivity >10,000(H ) <=22 [...] can be found in the [facility] Test Catalog Troponin - [email or web address]/catalogs/565/files/38983 Reference: Fourth [place] Definition of Myocardial Infarction. Journal of the [place] College of Cardiology 2018;72:5871-1043 Blood VENOUS BLOOD SPECIMEN / Unknown Venipuncture / Unknown 07/29/2024 4:52 PM EST 07/29/2024 4:57 PM EST Aubree Silverio MD CHEMISTRY ORDERABL ES [facility] [place] [address] * EKG 12 Lead (07/29/2024 4:21 PM EST) Ventricular rate 72 BPM MUSE SYSTEM Atrial Rate 72 BPM MUSE SYSTEM P-R Interval 168 ms MUSE SYSTEM QRS Duration 82 ms MUSE SYSTEM Q-T Interval 392 ms MUSE SYSTEM QTC Calculated (Bezet) 429 ms MUSE SYSTEM Calculated P [place] 71 degrees MUSE SYSTEM Calculated R [place] 77 degrees MUSE SYSTEM Calculated T [place] 28 degrees MUSE SYSTEM INTERPRETATION Sinus rhythm with Premature supraventricular complexes and Occasional Premature ventricular complexes Low voltage QRS 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) Lateral injury pattern ACUTE GA / STEMI Abnormal ECG When compared with ECG of 29-JUL-2024 13:43, (unconfirmed) Serial changes of evolving Anteroseptal infarct Present Confirmed by MD Marcus, Roverto (1963) on 07/31/2024 5:30:06 AM MUSE SYSTEM 07/29/2024 4:21 PM EST 07/31/2024 5:30 AM EST Aubree Silverio MD ECG ORDERABLES Performing Organization Address [facility] Co de Phone Number MUSE [...] -3.0 - 3.0 mmol/L 07/29/2024 4:22 PM [facility] Hemoglobin, Arterial 12.2(L) 13.7 - 16.5 g/dL 07/29/2024 4:22 PM [facility] Oxyhemoglobin, Arterial 93.8(L) 94.0 - 97.0 % 07/29/2024 4:22 PM [facility] Carboxyhemoglobin , Arterial 0.5 % 07/29/2024 4:22 PM [facility] Comment: Nonsmokers: 0.5-1.5% COHB ?? Smokers: Variable ??but usually less than 10% ?? Toxic: 20-30% COHB ?? Lethal: Greater than 60% COHB Methemoglobin, Arterial 0.3 <=1.5 % 07/29/2024 4:22 PM [facility] Sodium, Arterial 134(L) 135 - 145 mmol/L 07/29/2024 4:22 PM [facility] Potassium, Arterial 4.2 3.5 - 5.0 mmol/L 07/29/2024 4:22 PM [facility] Chloride, Arterial 107 98 - 107 mmol/L 07/29/2024 4:22 PM [facility] Lactate, Arterial 1.5 0.5 - 2.2 mmol/L 07/29/2024 4:22 PM [facility] Fraction of Inspired Oxygen 21 % 07/29/2024 4:22 PM [facility] PF Ratio 338 Ratio 07/29/2024 4:22 PM [facility] Comment:PF ratio calculated using the non-temperature corrected pO2 result. IONIZED CALCIUM, ARTERIAL 1.12(L) 1.15 - 1.33 mmol/L 07/29/2024 4:22 PM [facility] Glucose, Arterial 181 65 - 199 mg/dL 07/29/2024 4:22 PM [facility] Comment:Glucose Concentratio n >=200 mg/dL plus symptoms is consistent with Diabetes Mellitus. Blood ARTERIAL BLOOD / Unknown 07/29/2024 4:21 PM EST 07/29/2024 4:22 PM EST Aubree Silverio MD POINT OF CARE TEST ORDERABLES Performing Organization Address City/[facility]/ZIP Co de Phone Number [facility] [place] [address] * POC, GLUCOSE (07/29/2024 4:19 PM EST) [...] Organization Address City/[facility]/ZIP Co de Phone Number [facility] [place] [address] * Blood culture (07/29/2024 4:08 PM EST) Blood Culture No growth at 120 hours 08/03/2024 5:01 PM EST [facility] Blood VENOUS BLOOD SPECIMEN / Unknown Venipuncture / Unknown 07/29/2024 4:08 PM EST 07/29/2024 4:15 PM EST Aubree Silverio MD MICROBIOLOGY - BLO OD ORDERABLES [facility] [place] [address] * Blood culture (07/29/2024 4:08 PM EST) Blood Culture No growth at 120 hours 08/03/2024 5:01 PM EST [facility] Blood VENOUS BLOOD SPECIMEN / Unknown Venipuncture / Unknown 07/29/2024 4:08 PM EST 07/29/2024 4:26 PM EST Aubree Silverio MD MICROBIOLOGY - BLO OD ORDERABLES [facility] [place] [address] * XR Chest One View (07/29/2024 2:30 PM EST) WORKSTATION ID [id number] RAD Anatomical Region Laterality Modality Chest N/A [...] have questions please contact the health career transition specialist that requested your imaging first. ? Electronically signed by: Chris Candelaria MD, [facility] ([phone]), at 07/29/2024 3:21 PM Narrative 07/29/2024 3:21 [...] who have questions please contactthe health career transition specialist that requested your imaging first. Electronically signed by: Chris Candelaria MD, [facility]([phone]), at 07/29/2024 3:21 PM Vahe Marvin MD IMG DX ORDERABLES * (ABNORMAL) APTT (07/29/2024 2:03 PM EST) [facility] Partial Thromboplastin Time >160(HHH) 25 - 37 sec 07/29/2024 2:56 PM EST [facility] Blood VENOUS BLOOD SPECIMEN / Unknown Venipuncture / Unknown 07/29/2024 2:03 PM EST 07/29/2024 2:13 PM EST Vahe Marvin MD HEMATOLOGY ORDERABLE S [facility] [place] [address] * (ABNORMAL) Prothrombin Time (07/29/2024 2:03 PM EST) [facility] Prothrombin Time 14.2(H) 9.4 - 12.5 [...] Organization Address City/[facility]/ZIP Co de Phone Number [facility] [place] [address] * CRP, acute inflammation (07/29/2024 2:03 PM EST) C-Reactive Protein <3.0 <=4.9 mg/L 07/29/2024 2:52 PM EST [facility] Blood VENOUS BLOOD SPECIMEN / Unknown Venipuncture / Unknown 07/29/2024 2:03 PM EST 07/29/2024 2:14 PM EST Vahe Marvin MD CHEMISTRY ORDERABLES Performing Organization Address City/[facility]/ZIP Co de Phone Number [facility] [place] [address] * Lipid Panel (Reflex Direct LDL) (07/29/2024 [...] mg/dL HDL Cholesterol 58 mg/dL 2:52 PM [facility] Non-HDL Cholesterol 75 mg/dL 07/29/2024 2:52 PM [facility] Comment: Desirable: <130 mg/dL Above Desirable: 130-159 mg/dL Borderline High: 160-189 mg/dL High: 190-219 mg/dL Very High: > or = 220 mg/dL Blood VENOUS BLOOD SPECIMEN / Unknown Venipuncture / Unknown 07/29/2024 2:03 PM EST 07/29/2024 2:14 PM EST [facility] LABORATORY - 07/29/2024 2:52 PM EST [...] ACC/AHA Guidelines (most recently Rolf et al. [facility] 06/15/22): * For individuals with [...] Organization Address City/[facility]/ZIP Co de Phone Number [facility] [place] [address] * TSH [place] (07/29/2024 2:03 PM EST) [facility] Thyroid Stimulating Hormone 0.70 0.27 - 4.20 mcIU/mL 07/29/2024 2:52 PM EST [facility] Blood VENOUS BLOOD SPECIMEN / Unknown Venipuncture / Unknown 07/29/2024 2:03 PM EST 07/29/2024 2:14 PM EST Vahe Marvin MD CHEMISTRY ORDERABLES Performing Organization Address City/[facility]/ZIP Co de Phone Number [facility] [place] [address] * Hemoglobin A1c (07/29/2024 2:03 PM EST) [...] red blood cell turnover may not be senior human resources representative of glycemic control. Reference Interval: 4.3 [...] 07/29/2024 2:14 PM EST [facility] LABORATORY - 07/29/2024 2:41 PM EST Estimated average glucose (eAG) is calculated from the equation described in: Quinten DM, Rikki J, Reno R, et al. ??Translating the A1C assay into estimated average glucose values. ??Diabetes Care 2008:31(8):1695-7104. Additional resources are available on the ADA website (diabetes.org). Vahe Marvin MD CHEMISTRY ORDERABLES [facility] [place] [address] * (ABNORMAL) CBC (with Diff) (07/29/2024 2:03 PM EST) White Blood Cell 19.50(H) 4.00 - 9.50 x10(3)/mc L 07/29/2024 2:18 PM EST [facility] Red Blood Cell 4.81 4.58 - 5.54 x10(6)/mc L 07/29/2024 2:18 PM [facility] Hemoglobin 13.1(L) 13.7 - 16.5 g/dL 07/29/2024 2:18 PM [facility] Hematocrit 40.1(L) 40.5 - 48.5 % 07/29/2024 2:18 PM [facility] Mean Cell Volume 83.4 82.9 - 93.1 fL 07/29/2024 2:18 PM [facility] Mean Cell Hemoglobin 27.2(L) 27.5 - 32.1 pg 07/29/2024 2:18 PM [facility] Mean Cell Hemoglobin Concentration 32.7 32.0 - 35.7 g/dL 07/29/2024 2:18 PM [facility] Platelet 236 145 - 357 x10(3)/mc L 07/29/2024 2:18 PM [facility] Mean Platelet Volume 10.6 7.6 - 12.9 fL 07/29/2024 2:18 PM [facility] RDW Standard Deviation 43.7 36.0 - 45.0 fL 07/29/2024 2:18 PM [facility] RDW coefficient of variation 14.3(H) 11.4 - 13.8 % 07/29/2024 2:18 PM [facility] NRBC% auto 0.0 % 07/29/2024 2:18 PM [facility] NRBC Absolute <0.01 <0.01 x10(3)/mc L 07/29/2024 2:18 PM [facility] Neutrophil % 93.6 % 07/29/2024 2:18 PM [facility] Neutrophil Absolute (ANC) - Automated 18.28(H) 1.70 - 6.10 x10(3)/mc L 07/29/2024 2:18 PM [facility] Lymph % 2.7 % 07/29/2024 2:18 PM [facility] Lymph Absolute 0.52(L) 0.90 [...] % 0.3 % 07/29/2024 2:18 PM EST [facility] Baso Absolute 0.05 0.00 - 0.10 x10(3)/mc L 07/29/2024 2:18 PM EST [facility] Immature Gran % 0.5 % 2:18 PM [facility] Immature Gran Absolute 0.09(H) 0.00 - 0.04 x10(3)/mc L 07/29/2024 2:18 PM EST [facility] Blood VENOUS BLOOD SPECIMEN / Unknown Venipuncture / Unknown 07/29/2024 2:03 PM EST 07/29/2024 2:13 PM EST Vahe Marvin MD HEMATOLOGY ORDERABLE S [facility] [place] [address] * Phosphorus (07/29/2024 2:03 PM EST) Phosphorus 2.5 2.5 - 4.5 mg/dL 07/29/2024 2:52 PM EST [facility] Blood VENOUS BLOOD SPECIMEN / Unknown Venipuncture / Unknown 07/29/2024 2:03 PM EST 07/29/2024 2:14 PM EST Vahe Marvin MD CHEMISTRY ORDERABLES [facility] [address] * Magnesium (07/29/2024 2:03 PM EST) Magnesium 0.70 0.69 - 1.07 mMol/L 07/29/2024 2:52 PM EST [facility] Blood VENOUS BLOOD SPECIMEN / Unknown Venipuncture / Unknown 07/29/2024 2:03 PM EST 07/29/2024 2:14 PM EST Vahe Marvin MD CHEMISTRY ORDERABLES Performing Organization Address [facility]/ZIP Co de Phone Number [facility] [place] [address] * (ABNORMAL) Comprehensive metabolic panel (07/29/2024 2:03 PM EST) Pathologist [facility] Glucose 243(H) 65 - 199 mg/dL 07/29/2024 3:11 PM [facility] Comment:Glucose Concentratio n >=200 mg/dL plus symptoms is consistent with Diabetes Mellitus. Blood Urea Nitrogen 13 10 - 20 mg/dL 07/29/2024 3:11 PM [facility] Creatinine 0.88 0.80 - 1.50 mg/dL 07/29/2024 3:11 PM [facility] Sodium 138 135 - 145 mMol/L 07/29/2024 3:11 PM [facility] Potassium 3.6 3.5 - 5.0 mMol/L 07/29/2024 3:11 PM [facility] Chloride 104 98 - 107 mMol/L 07/29/2024 3:11 PM [facility] Carbon Dioxide 19(L) 22 - 31 mMol/L 07/29/2024 3:11 PM [facility] Anion Gap 15 5 - 15 mMol/L 07/29/2024 3:11 PM [facility] Calcium 8.0(L) 8.5 - 10.5 mg/dL 07/29/2024 3:11 PM EST [facility] Protein, Total 6.0(L) 6.1 - 8.0 g/dL 07/29/2024 3:11 PM [facility] Albumin 3.6 3.2 - 5.2 g/dL 07/29/2024 3:11 PM [facility] Aspartate Aminotransferase 07/29/2024 3:11 PM EST [facility] Comment:Unable to report due to [...] Marvin MD CHEMISTRY ORDERABLES [facility] [address] * (ABNORMAL) Troponin - Single (07/29/2024 2:03 PM EST) [facility] Troponin-T, High Sensitivity >10,000(H ) <=22 [...] can be found in the [facility] Test Catalog Troponin - https://[email or web address]/catalogs/565/files/64735 Reference: Fourth [place] Definition of Myocardial Infarction. Journal of the [place] College of Cardiology 2018;72:2921-8636 Blood VENOUS BLOOD SPECIMEN / Unknown Venipuncture / Unknown 07/29/2024 2:03 PM EST 07/29/2024 2:14 PM EST Vahe Marvin MD CHEMISTRY ORDERABLES [facility] [address] * (ABNORMAL) Blood Gas, Venous POC (07/29/2024 2:01 PM EST) [facility] pH, Venous 7.30(L) 7.32 - 7.42 [...] CARE TEST O RDERABLES Performing Organization Address [facility]/State/ZIP Co de Phone Number [facility] [place] [address] * CARDIAC CATHETERIZATION (07/29/2024 1:20 PM EST) Anatomical Region Laterality Modality Other Narrative 07/29/2024 2:02 PM EST ?[facility] ? Cardiac Catheterization/Intervention Report ? Patient Name: Korey Montoya Kyrie. ? Procedure Date: 07/29/2024 ? A #: [id number] ? Primary Physician: Vahe Marvin ? Case #: [id number] ? File Name: [id number] ? Catheterization Order Number: [id number] ? [facility] ? Final Report [place], [place] ? Patient Name: ? Korey Montoya ?ID#: ?[id number] ? : ?1950 ? Procedure Date: ? [...] procedure was Emergent. The indication for ?the track repair laborer visit is ACS less than or [...] 3.5 guiding catheter and a 3.5 [address] ??20 Mhz using ?Manual pullback. ??Imaging [...] ? A premounted 3.00 x 22 mm Ages [place] (LOW) was deployed ? with a maximum [...] ??A premounted 3.00 x 08 mm Jeison [place] (LOW) ? was deployed with a maximum [...] dose administered prior to arrival in the track repair laborer. ?Recommended anti-platelet/anti-thrombotic regimen: ?Start aspirin 81 mg daily now and continue for 12 months then stop. ?Start clopidogrel 75 mg daily now and continue for indefinitely. ?These recommendations are made at the time of the intervention. Patient ?and provider preferences or a changing clinical situation may require ?modification of this regimen. Consult [facility] Interventional Cardiology for ?questions. ?The 1 year [...] able ?to start weaning his inotropes/vasopressors. A [place] Colette catheter was ?placed demonstrating improvement in his hemodynamics and the impella site ?was perclosed and hemostatic gauze was applied with excellent result. ?WIll transfer [facility] the [facility] for further management. ?The attending physician was present for the entire procedure. ?Dr. Vahe Marvin M.D. was present during the moderate sedation ?intraservice time as documented by the sedation nurse. ??Case time = 01:26. ?Dr. Vahe Marvin M.D. performed the coronary angiography, left heart ?catheterization, IVUS # coronary, stent insertion-coronary, oximetry, ABG, ?transthoracic echo , ventricular assist device insertion, right heart ?catheterization, [place] (flow directed cath) insertion, access site ?angiography, vascular ultrasound, venous line / sheath insert and vascular ?closure device. ? Vahe Quiñones Shavonne, M.D. ? Electronically Signed by: Vahe Cobosstein, M.D. ? Report Finalized: 07/29/2024 ??13:55 ? Report Last Ammended: 07/30/2024 ??10:15 ? Procedure Note Vahe Marvin MD - 07/30/2024 [facility] Cardiac Catheterization/Intervention Report Patient Name: Korey Montoya Procedure Date: 07/29/2024 A #: [id number] Primary Physician: Vahe Marvin Case #: [id number] File Name: [id number] Catheterization Order Number: [id number] [facility] FinalReport [place], [place] Patient Name: Korey Montoya ID#:[id number] :1950 Procedure Date: July 29, 2024 Case [...] was designated as ASA Class IV. The [facility] frailty scale is 4: Vulnerable. Diagnostic Tests: Electrocardiography: EKG was assessed by ECG. EKG was Abnormal. EKG showed STDeviation >= 0.5 mm. Medications Prior to Procedure: Angiotensin II Receptor Elvis and Statin. Indications for Diagnostic Cath: The priority of the diagnostic procedure was Emergent. Theindication for the track repair laborer visit is ACS less than or [...] 3.5 guiding catheter and a 3.[address] 20 Mhzusing Manual pullback. Imaging was [...] The priority for the procedure was Emergent.The [facility] indication for the procedure was [...] The lesion was predilated with a 2.00mm [id number] MM balloon with a maximum inflation pressure of 12atmospheres. A premounted 3.00 x 22 mm Ages [place] (LOW) wasdeployed with a maximum inflation pressure [...] A premounted 3.00 x 08 mm Jeison [place](LOW) was deployed with a maximum inflation pressure [...] dose administered prior to arrival in the track repair laborer. Recommended anti-platelet/anti-thrombotic regimen: Start aspirin 81 mg daily now and continue for 12 months then stop. Start clopidogrel 75 mg daily now and continue for indefinitely. These recommendations are made at the time of the intervention.Patient and provider preferences or a changing clinical situation mayrequire modification of this regimen. Consult [facility] Interventional Cardiologyfor questions. The 1 year bleeding [...] wereable to start weaning his inotropes/vasopressors. A [place] Colette catheterwas placed demonstrating improvement in his [...] ventricular assist device insertion, right heart catheterization, [place] (flow directed cath) insertion, access site angiography, [...] 13.7 - 16.5 g/dL 07/30/2024 7:30 AM [facility] Comment:The calculation of h emoglobin from hematocrit assumes a normal MCHC. Bicarbonate, POC 19.8(L) 20.0 - 26.0 mmol/L 07/30/2024 7:30 AM [facility] Carbon Dioxide, POC 21(L) 22 - 31 mmol/L 07/30/2024 7:30 AM [facility] Blood VENOUS BLOOD SPECIMEN / Unknown 07/29/2024 12:46 PM EST 07/30/2024 7:30 AM EST Vahe Marvin MD POINT OF CARE TEST O RDERABLES [facility] [address] * (ABNORMAL) BLOOD GAS, POC (07/29/2024 12:12 PM EST) Sodium, POC 135 135 - 145 mmol/L 07/30/2024 7:30 AM [facility] Potassium, POC 3.8 3.5 - 5.0 mmol/L 07/30/2024 7:30 AM [facility] pH, POC 7.27(LLL) 7.35 - 7.45 07/30/2024 7:30 AM [facility] Ionized Calcium, POC 1.14(L) 1.15 - 1.33 mmol/L 07/30/2024 7:30 AM [facility] pCO2, POC 43 35 - 45 mmHg 07/30/2024 7:30 AM [facility] pO2, POC 131(H) 85 - 104 mmHg 07/30/2024 7:30 AM [facility] Base Excess, POC -7.0(L) -3.0 - 3.0 mmol/L 07/30/2024 7:30 AM [facility] Hematocrit, POC 36.0(L) 40.5 - 48.5 %PCV 07/30/2024 7:30 AM [facility] Hemoglobin, POC 12.2(L) 13.7 - 16.5 g/dL 07/30/2024 7:30 AM [facility] Comment:The calculation of h emoglobin from hematocrit assumes a normal MCHC. Bicarbonate, POC 19.7(L) 20.0 - 26.0 mmol/L 07/30/2024 7:30 AM [facility] Carbon Dioxide, POC 21(L) 22 - 31 mmol/L 07/30/2024 7:30 AM [facility] Blood VENOUS BLOOD SPECIMEN / Unknown 07/29/2024 12:12 PM EST 07/30/2024 7:30 AM EST Vahe Marvin MD POINT OF CARE TEST O RDERABLES Performing Organization Address City/State/[facility] Co de Phone Number [facility] [place] [phone] documented in this encounter Visit Diagnoses Not [...] Until Discontinued, Routine 2024 (Given - Provider: Eduoard Wisdom RN) 2202 (Given - Provider: [place] [...] Routine documented in this encounter Care Teams Cremator Relationship Specialty Start Date End Date Yoel Artis APRN [address] [place] [address] PCP - General Internal Medicine 11/18/22 07/29/24 documented as of this encounter
--- OUTSIDE RECORDS SUMMARY | 2024-09-19 13:09 | XMS_ITS | Encounter Summary ---
Author Organization [facility] [place] [address] Care Team Providers Care Semiconductor Wafers Etch Operator Name Role Phone Yoel Artis Ute ALCALA Primary Care Provider [phone] Encounter Details Date Type Department Care Team (Late st Contact Info) Description 07/29/2024 Interpretation Only [facility] [address] [place] [phone] Chaparro Montana MD [address] [place] [address] Social History Tobacco Use Types Packs/Day Years Used Date Smoking Tobacco: Former Cigarettes Smokeless Tobacco: Never Alcohol Use Standard Drinks/Week Comments Not Currently 0 (1 standard drink = 0.6 oz pur e alcohol) [facility] Utilities Answer Date Recorded In the past 12 months has [employer], gas, oil, or water [employer] threatened to shut off services in your [...] in the past 12 m [facility], were you homeless or living [...] AM EST Office Visit Cardiology at [address] [address] Mushtaq Murphy APRN documented as of this encounter Procedures Procedure Name Priority Date/Time Associated Diagnosis Comments XR CHEST ONE VIEW STAT 07/29/2024 10: 50 AM EST documented in this encounter Results * XR Chest One View (07/29/2024 10:50 AM EST) PT CLASS E RAD ADMITDTTM [id number] RAD PT RAD MD INFO [id number]^Albertiss henry^Chaparro RAD EXAM DESC XCXR1^XR Chest 1 [...] have questions please contact the health rn care manager that requested your imaging first. [...] who have questions please contactthe health rn care manager that requested your imaging first. Chaparro Montana MD IMG DX ORDERABLES documented in this encounter Visit Diagnoses Not on filedocumented in this encounter Care Teams Semiconductor Wafers Etch Operator Relationship Specialty Start Date End Date Yoel Artis APRN [address] [place] [address] PCP - General Internal Medicine 11/18/22 07/29/24 documented as of this encounter
--- OUTSIDE RECORDS SUMMARY | 2024-09-19 13:09 | XMS_ITS | Encounter Summary ---
[place] [address] Care Team Providers Care Rewinder Operator Name Role Phone Alexia Mtz [employer] Primary Care Provider [phone] Encounter Details Date Type Department Care Team (Late st Contact Info) Description 06/25/2024 Lab [place] [phone] Aubrey Cali MD [address] [place] [address] [id number] Pyuria Social History Tobacco Use Types Packs/Day [...] AM EST Office Visit Cardiology at [address] [phone] Mushtaq Murphy APRN documented as of this [...] Cali MD MICROBIOLOGY - GENER AL ORDERABLES [facility] [place] [address] documented in this encounter Visit Diagnoses Diagnosis Pyuria Other nonspecific finding on examination of urine documented in this encounter Care Teams Rewinder Operator Relationship Specialty Start Date End Date Alexia Mtz APRN [address] [place] [address] PCP - General Family Medicine 07/30/24 documented as of this encounter
--- OUTSIDE RECORDS SUMMARY | 2024-09-19 13:09 | XMS_ITS | Encounter Summary ---
[place] [address] Care Team Providers Care Miller Head Name Role Phone Yoel Artis FREDRICK Primary Care Provider [phone] Encounter Details Date Type Department Care Team (Late st Contact Info) Description 01/16/2024 Interpretation Only [facility] [address] [place] [address] Chaparro Montana MD [address] [place] [address] Social History Tobacco Use Types Packs/Day Years [...] AM EST Office Visit Cardiology at [address] [address] Mushtaq Murphy APRN documented as of this encounter Procedures Procedure Name Priority Date/Time Associated Diagnosis Comments CT HEAD WO CONTRAST (GENERIC) STAT 01/16/2024 4:17 PM EDT documented in this encounter Results * CT Head wo Contrast (Generic) (01/16/2024 4:17 PM EDT) PT CLASS E RAD ADMITDTTM [id number] [facility] PT RAD INFO [id number]^Haniss henry^Chaparro RAD EXAM DESC CTHEAD^CT Head w/o Contrast^RIS [facility] WORKSTATION ID RADDRIMAGE [facility] Anatomical Region Laterality Modality Head Computed Tomogra phy 01/16/2024 4:03 PM EDT Impressions 01/16/2024 4:25 PM EDT No acute intracranial pathology. Thank you for letting us participate in the care of this patient. ??If you are a health care provider and have any questions regarding this report, please contact the number below. ??For patients who have questions please contact the health healthcare customer service that requested your imaging first. ? Electronically signed by: Alejandro Tenorio MD, [facility] ([phone]), at 01/16/2024 4:25 PM Narrative 01/16/2024 4:25 [...] who have questions please contactthe health healthcare customer service that requested your imaging first. Chaparor Montana MD IMG CT ORDERABLES documented in this encounter Visit Diagnoses Not on filedocumented in this encounter Care Teams Miller Head Relationship Specialty Start Date End Date Yoel Artis APRN [address] [place] [address] PCP - General Internal Medicine 11/18/22 07/29/24 documented as of this encounter
--- OUTSIDE RECORDS SUMMARY | 2024-09-19 13:09 | XMS_ITS | Encounter Summary ---
Author Organization [facility] Address [facility] [place] [address] Care Team Providers Care Catalogue Librarian Name Role Phone Yoel Artis APRN Primary Care Provider [phone] Encounter Details Date Type Department Care Team (Latest Contact Info) Description 11/30/2023 8:00 AM EDT TH Visit (TeleHealth) [place] [address] Yoel Dangelo APRN [facility] [place] [address] Proctalgia fugax; Constipation, unspecified constipation type Social [...] [place]: Sitz bath's are available in most [facility]. They work by improving blood flow and [...] Handout for Patients and Primary Care Providers [facility] Motility, Esophageal, [facility] Swallowing [facility] What are functional bowel disorders? These are the most common type of gastrointestinal disorders in the [facility] The most common functional bowel [...] what is the impact? 15-20% of general [place] population has IBS or FD or both 2nd most common cause for lost work days (after common cold) in [place] Estimated $30 billion dollar cost to [place] economy per year These disorders can have [...] with immediate onset of symptoms after infection); mcc symptoms are expected in most patients however [...] to you primary care provider and/or local underground miner and share this document. Treatment of functional [...] - this approach benefits most patients OTC (oufq-ivw-kyicsfj) medications can be used for ongoing bothersome symptoms as listed below Your provider (PCP or local Gastroenterology provider or [facility] Gastroenterology provider) may decide to use [...] All-Bran psyllium buds, Metamucil, Konsyl, bulk psyllium (Pounce stores and Idomoo stores) Specifically we recommend starting Metamucil or [...] but convincing medical evidence is still lacking Fxqm-avk-saorwbq supplements including probiotics are not typically evaluated [...] to decrease antibiotic-associated diarrhea and antibiotic-related infections Opmw-zyc-Htqqaup Medications for Functional Gut Disorders Based on [...] stool softener that is safe for terminal make up operator usage (no risk of dependency) andthe [...] (GERD) Often a combination of anti-nausea medications (lfnz-ubl-tkvbxyb or prescription) works better thanhigh doses of [...] for misuse/misinterpretation of this information Patient Resources [place] [employer] https://www.gastro.org/practice-guidance/rz-ochpazq-orpznk/ topic/ssqxqnrxt-obtae-lfsotdtq-ibs Badgut.org https://badgut.org/information-centre/d-c-wwwiqtqaq-topics/ibs/ AboutIBS.org https://www.aboutibs.org/ Uptodate.com https://www.uptodate.com/contents/mwadrlosw-mootu-ovlviivb-windlt-gmt-bjzmvf documented in this encounter Progress Notes * [...] Take by mouth. nitroGLYcerin (NITROLINGUAL) 400 mcg/spray [place], Non-Aerosol 1 spray to anus for proctalgia fugax as needed, not to exceed once daily 12 g 0 No facility-administered medications prior to visit. Allergies: has No Known Allergies. Past Medical History: has a past medical history of ADHD, HLD (hyperlipidemia), HTN (hypertension),and Tremor. Past Surgical History: has a past surgical history that includes Hand surgery and Colonoscopy, Antonieta Pfeiffer ([id number]) (N/A, 08/30/2023). Family History: family history is [...] time of their visit. Yoel Dangelo [place] [facility] [place] [address] documented in this encounter Miscellaneous Notes * Addendum Note - Yoel Dangelo APRN - 11/30/2023 8:00 AM EDTAddended by: YOEL DANGELO on: 11/30/2023 08:46 AM Modules accepted: Level of Service documented in this encounter Plan of Treatment Upcoming Encounters Date Type Department Care Team (Late st Contact Info) Description 10/01/2024 10:00 AM EST Office Visit Cardiology at [address] [address] Mushtaq Murphy APRN documented as of this encounter Visit Diagnoses Diagnosis Proctalgia fugax Anal spasm Constipation, unspecified constipation type documented in this encounter Care Teams Catalogue Librarian Relationship Specialty Start Date End Date Yoel Artis APRN [address] [place] [address] PCP - General Internal Medicine 11/18/22 07/29/24 documented as of this encounter
--- OUTSIDE RECORDS SUMMARY | 2024-09-19 13:09 | XMS_ITS | Encounter Summary ---
[place] [address] Care Team Providers Care Wrapper Hand Name Role Phone Alexia Mtz FREDRICK Primary Care Provider [phone] Encounter Details Date Type Department Care Team (Late st Contact Info) Description 07/29/2024 External Results [place] [address] Social History Tobacco Use Types Packs/Day Years Used Date Smoking Tobacco: Former Cigarettes Smokeless Tobacco: Never Alcohol Use Standard Drinks/Week Comments Not Currently 0 (1 standard drink = 0.6 oz pur e alcohol) [facility] Utilities Answer Date Recorded In [...] AM EST Office Visit Cardiology at [address] [address] Mushtaq Murphy APRN documented as of this encounter Procedures Procedure Name Priority Date/Time Associated Diagnosis Comments MISC EXTERNAL CARDIOLOGY RESULT Routine 07/29/2024 10:13 AM EST documented in this encounter Results * External Cardiology Result (07/29/2024 10:13 AM EST) Anatomical Region Laterality Modality Other Historical Provider EXTERNAL CARDIOLO GY RESULT documented in this encounter Visit Diagnoses Not on filedocumented in this encounter Care Teams Wrapper Hand Relationship Specialty Start Date End Date Alexia Mtz APRN [address] [place] [address] PCP - General Family Medicine 07/30/24 documented as of this encounter
[2024-09-19 13:10] LABS: ALT 26 U/L (16-63); AST 21 U/L (15-37); Albumin 3.6 g/dL (3.4-5.0); Alkaline Phosphatase 77 U/L (46-116); Anion Gap 4.8 mmol/L (3-11); BUN 19 mg/dL (7-18); Bilirubin, Total 0.46 mg/dL (0.2-1.0); CO2 30.2 mmol/L (21.0-32.0); CREATININE 1.2 mg/dL (0.70-1.30); Chloride 108 mmol/L (98-107); Estimated GFR 64.25 (mL/min/1.73m2); Glucose 81 mg/dL (74-106); Magnesium 2.1 mg/dL (1.8-2.4); Potassium 4.1 mmol/L (3.5-5.1); Sodium 143 mmol/L (136-145); Total Protein 6.8 g/dL (6.4-8.2); Troponin I 37 ng/L (<or=76)
--- OUTSIDE RECORDS SUMMARY | 2024-09-19 13:10 | XMS_ITS | Encounter Summary ---
Author Organization [facility] [place] [address] Care Team Providers Care Project Manager Process Development Name Role Phone Yoel Artis Ute ALCALA Primary Care Provider [phone] Reason for Visit * Auth/Cert (Routine) Specialty Diagnoses / Procedures Referred By Theodore t Referred To Contact Diagnoses Anal spasm Fecal smearing Constipation, unspecified Rectal pain, fecal smearing Procedures PRO COLONOSCOPY, DIAGNOSTIC PRO COLONOSCOPY, BIOPSY PRO COLONOSCOPY, REMV LESN, SNARE COLONOSCOPY, DIAGNOSTIC (WRVU 3.26) Brandan Mcgovern MD [facility] [place] [address] [facility] Referral ID Status Reason Start Date Expiration Date Visits Re quested Visits Authorized [id number] 1 1 Encounter Details Date Type Department Care Team (Latest Contact Info) Description 08/30/2023 10:09 AM EST - 08/30/2023 12:19 PM [facility] Hospital En[place] [address] Brandan Mcgovern MD [facility] [place] [address] Discharge Disposition: Home Social History Tobacco Use [...] occurs, please contact your Doctor. Please call [phone] before 8pm Mon-Fri with problems, questions or concerns. If you call after 8pm or on weekends, call the Hospital at [phone] and ask to speak to the Grain Loader application security specialist and the coat hanger shaper machine operator will contact that person for you. When should you call for help? Call [phone] anytime you think you may need emergency [...] any problems. Where can you learn more? [facility] View your After Visit Summary and more online at [email or web address] If you would like to provide feedback about your hospital experience, please call the Office of Patient and Family Relations at . If you have received this After Visit Summary in error, please immediately return it in person to the department, or notify the [facility] Privacy Office by calling toll free at between the hours of 8AM and 5PM to arrange for our retrieval of the documents at no cost to you. Content Version: 12.2 ?? [id number] [employer]. Care instructions adapted under license by [facility]. If you have questions about a medical condition or this instruction, always ask your healthcare professional. [employer] disclaims any warranty or liability for your [...] evening. 04/17/2023 08/04/2024 nitroGLYcerin (NITROLINGUAL) 400 mcg/spray [place], Non-AerosolIndications:P roctalgia fugax,Fecal smearing,Constipation, unspecified constipation [...] AM EST Office Visit Cardiology at [address] [address] Mushtaq Murphy APRN documented as of this encounter Procedures Procedure Name Priority Date/Time Associated Diagnosis Comments SPECIMEN TO PATHOLOGY Routine 08/30/2023 11:23 AM EST SURGICAL PATHOLOGY REPORT Routine 08/30/2023 11:21 AM EST COLONOSCOPY Routine 08/30/2023 10:57 AM EST Colonoscopy, Remv Jonin, Snare ([id number]) 08/30/2023 10:44 AM EST Proctalgia fugax Fecal smearing Constipation, unspecified constipation type documented in this encounter Results * Specimen to Pathology (08/30/2023 11:23 AM EST) AP Specimen 08/30/2023 11:2 3 AM EST 08/30/2023 11:23 AM EST Narrative [facility] - 08/30/2023 11:23 AM EST Specimen requisition ordered. ??Separate Pathology report to follow Brandan Mcgovern MD PATHOLOGY/CYTOLOGY O RDKAY Performing Organization Address [facility] Co de Phone Number [facility] [place] [phone] * Surgical Pathology Report (08/30/2023 11:21 AM EST) Final Diagnosis [id number] ? Location: 4T; EA12; A The signing pathologist has (i) examined the relevant preparation(s) for the specimen(s) and (ii) rendered or confirmed the diagnosis(es). . ?Surgical Pathology DIAGNOSIS A - Sigmoid colon polyp, resection (Multiple): - ??Tubular adenoma. CR-PX Electronically signed by: ?Blake ORTEGA PhD, Yulia Verified: ??09/08/2023 14:48 ??Pathologist Performed at: ??-[facility] Dept. of Pathology, [place] [address] Chief Juvenile Probation Officer: Fercho Chan MD, FCAP, ??CLIA Certificate: [id number] SPECIMEN(S) SUBMITTED A - Sigmoid colon polyp, [...] MD PATHOLOGY/CYTOLOGY O JOSH Performing Organization Address City/[facility]/ZIP Co de Phone Number [facility] [place] [phone] [place] [address] * COLONOSCOPY (08/30/2023 10:57 AM EST) COLONOSCOPY [facility] Endoscopy Procedure Date: 08/30/2023 10:57 AM ? Patient Name: Korey Montoya ? Date of : 1950 ? Age: 73 ? Order #: [id number] ? Instrument Name: [id number] ? Procedure: ? Colonoscopy Indications: ? Rectal [...] preparation was evaluated ? using the BBPS (Taykey Bowel ? Preparation Scale) with scores of: [...] Tika Fowler, RENEA)1057 (Given - Provider: Tika oFwler, RENEA)1059 (Given - Provider: Tika Fowler, RN)1102 [...] RN) documented in this encounter Care Teams Project Manager Process Development Relationship Specialty Start Date End Date Yoel Artis APRN [address] [place] [address] PCP - General Internal Medicine 11/18/22 07/29/24 documented as of this encounter
--- OUTSIDE RECORDS SUMMARY | 2024-09-19 13:10 | XMS_ITS | Encounter Summary ---
[place] [address] Care Team Providers Care Circular Sawyer Helper Name Role Phone Yoel Artis APRN Primary Care Provider [phone] Reason for Referral * Consultation (Routine) - Closed Specialty Diagnoses / Procedures Referred By Theodore muro Referred To Contact Urology Diagnoses Raised prostate specific antigen PERSISTENTLY MILDLY ELEVATED PSA, URINARY FREQ Yoel Artis APRN [address] [place] [address] [facility] [place] [address] Referral ID Status Reason Start Date Expiration Date V isits Requested Visits Authorized [id number] Closed Consult, Test & Treat PCP Updated and/or Approved 07/30/2023 07/29/2024 6 6 Encounter Details Date Type Department Care Team (Late st Contact Info) Description 07/30/2023 Transcribe Orders eDH Incoming Referrals [phone] Yoel Artis APRN [address] [place] [address] Raised prostate specific antigen Social History Tobacco [...] AM EST Office Visit Cardiology at [address] [address] Mushtaq Murphy APRN Scheduled Referrals Name Type Priority Associated Diagnoses Orde r Schedule Referral to Urology Outpatient Referral Routine Raised prostate specific antigen Ordered: 07/30/2023 documented as of this encounter Visit Diagnoses Diagnosis Raised prostate specific antigen Elevated prostate specific antigen (PSA) documented in this encounter Care Teams Circular Sawyer Helper Relationship Specialty Start Date End Date Yoel Artis APRN [address] [place] [address] PCP - General Internal Medicine 11/18/22 07/29/24 documented as of this encounter
--- OUTSIDE RECORDS SUMMARY | 2024-09-19 13:10 | XMS_ITS | Encounter Summary ---
[place] [address] Care Team Providers Care Belt And Link Shop Supervisor Name Role Phone Anibal Mtz MD Primary Care Provider [phone] Encounter Details Date Type Department Care Team (Late st Contact Info) Description 11/08/2022 [facility] Only [address] [phone] Eve Frost MD [address] [place] [phone] Social History Tobacco Use Types Packs/Day Years [...] AM EST Office Visit Cardiology at [address] [address] Mushtaq Murphy APRN documented as of this encounter Procedures Procedure Name Priority Date/Time Associated Diagnosis Comments XR CHEST PA AND LATERAL STAT 11/08/2022 10:34 AM EST documented in this encounter Results * XR Chest PA & Lateral (Generic) (11/08/2022 10:34 AM EST) PT CLASS E RAD ADMITDTTM RAD PT RAD INFO [id number]^C HANDER^SUNEE R RAD EXAM DESC XCXR2^XR CHEST [...] have questions please contact the health care giver that requested your imaging first. ? Electronically signed by: Alejandro Tenorio MD, [facility] ([phone]), at 11/08/2022 10:37 AM Narrative 11/08/2022 10:37 [...] who have questions please contactthe health care giver that requested your imaging first. Electronically signed by: Alejandro Tenorio MD, Radiology [place]([phone]), at 11/08/2022 10:37 AM Eve Frost MD IMG DX ORDERABLES documented in this encounter Visit Diagnoses Not on filedocumented in this encounter Care Teams Belt And Link Shop Supervisor Relationship Specialty Start Date End Date Anibal Mtz MD [address] [place] [address] PCP - General Family Medicine 01/17/19 11/17/22 documented as of this encounter
--- OUTSIDE RECORDS SUMMARY | 2024-09-19 13:10 | XMS_ITS | Encounter Summary ---
[place] [address] Care Team Providers Care Director Of Software Development Name Role Phone Yoel Artis FREDRICK Primary Care Provider [phone] Encounter Details Date Type Department Care Team (Late st Contact Info) Description 08/26/2023 [place] [address] Madelyn Vasquez Social History Tobacco Use Types [...] - 08/26/2023 9:23 AM EST Korey Montoya [id number] Diagnosis/Indication: Rectal pain, fecal smearing Please review [...] ever had a/an Colonoscopy before? Yes: Date oxqklv3rcy ago [facility] If yes, did you have any [...] your procedure. 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 Please Verify the [...] AM EST Office Visit Cardiology at [address] [address] Mushtaq Murphy APRN documented as of this encounter Visit Diagnoses Not on filedocumented in this encounter Care Teams Director Of Software Development Relationship Specialty Start Date End Date Yoel Artis APRN [address] [place] [address] PCP - General Internal Medicine 11/18/22 07/29/24 documented as of this encounter
--- OUTSIDE RECORDS SUMMARY | 2024-09-19 13:10 | XMS_ITS | Encounter Summary ---
[place] [address] Care Team Providers Care Fuel Cell Builder Name Role Phone Yoel Artis APRN Primary Care Provider [phone] Reason for Referral * Consultation (Routine) - Closed Specialty Diagnoses / Procedures Referred By Theodore muro Referred To Contact Gastroenterology Diagnoses Anal spasm anal spasm Yoel Artis APRN [address] [place] [address] [facility] [place] [address] Referral ID Status Reason Start Date Expiration Date V isits Requested Visits Authorized [id number] Closed Consult, Test & Treat PCP Updated and/or Approved 05/26/2023 05/25/2024 6 6 Encounter Details Date Type Department Care Team (Late st Contact Info) Description 05/26/2023 Transcribe Orders eDH Incoming Referrals [phone] Yoel Artis APRN [address] [place] [address] Anal spasm Social History Tobacco [...] AM EST Office Visit Cardiology at [address] [address] Mushtaq Murphy APRN Scheduled Referrals Name Type Priority Associated Diagnoses Order Schedule Referral to Gastroenterology Outpatient Referral Routine Anal spasm Ordered: 05/26/2023 documented as of this encounter Visit Diagnoses Diagnosis Anal spasm documented in this encounter Care Teams Fuel Cell Builder Relationship Specialty Start Date End Date Yoel Artis APRN [address] [place] [address] PCP - General Internal Medicine 11/18/22 07/29/24 documented as of this encounter
--- OUTSIDE RECORDS SUMMARY | 2024-09-19 13:10 | XMS_ITS | Encounter Summary ---
[place] [address] Care Team Providers Care Director Retail Brand Development Name Role Phone Yoel Artis APRN Primary Care Provider Encounter Details Date Type Department Care Team (Late st Contact Info) Description 03/01/2023 9:30 AM EDT - 03/01/2023 11:59 PM EDT Hospital Encounter [facility] [address] [place] [address] Yoel Artis APRN [address] [place] [address] Discharge Disposition: Home Social History Tobacco Use [...] AM EST Office Visit Cardiology at [address] [address] Mushtaq Murphy APRN documented as of this encounter Procedures Procedure Name Priority Date/Time Associated Diagnosis Comments PSA (ULTRASENSITIVE) Routine 03/01/2023 9:38 AM EDT documented in this encounter Results * (ABNORMAL) PSA (Ultrasensitive) (03/01/2023 9:38 AM EDT) Prostate Specific Antigen (Ultrasensitive) 5.09(H) 0.00 - 4.00 ng/mL [facility] Comment: PLEASE NOTE: The above reference [...] In Lab Yoel Artis APRN CHEMISTRY ORDERABLES [facility] [address] documented in this encounter Visit Diagnoses Not on filedocumented in this encounter Care Teams Director Retail Brand Development Relationship Specialty Start Date End Date Yoel Artis APRN [address] [place] [address] PCP - General Internal Medicine 11/18/22 07/29/24 documented as of this encounter
--- OUTSIDE RECORDS SUMMARY | 2024-09-19 13:10 | XMS_ITS | Encounter Summary ---
[place] [address] Care Team Providers Care Cushion Filler Name Role Phone Anibal Mtz MD Primary Care Provider [phone] Encounter Details Date Type Department Care Team (Late st Contact Info) Description 01/18/2019 3:00 PM EDT Interpretation Only Cardiology at [address] [address] Alberto Powell Jr., MD Dizziness Social History [...] AM EST Office Visit Cardiology at [address] [address] Mushtaq Murphy APRN documented as of this [...] giddiness documented in this encounter Care Teams Cushion Filler Relationship Specialty Start Date End Date Anibal Mtz MD [address] [place] [address] PCP - General Family Medicine 01/17/19 11/17/22 documented as of this encounter
--- OUTSIDE RECORDS SUMMARY | 2024-09-19 13:10 | XMS_ITS | Encounter Summary ---
[place] [address] Care Team Providers Care Human Resources Psychologist Name Role Phone Yoel Artis APRN Primary Care Provider Encounter Details Date Type Department Care Team (Late st Contact Info) Description 12/23/2022 8:20 AM EDT - 12/23/2022 11:59 PM EDT Hospital Encounter [facility] [address] [place] [address] Yoel Artis APRN [address] [place] [address] Discharge Disposition: Home Social History Tobacco Use [...] AM EST Office Visit Cardiology at [address] [address] Mushtaq Murphy APRN documented as of this encounter Procedures Procedure Name Priority Date/Time Associated Diagnosis Comments PSA SCREEN Routine 12/23/2022 8:43 AM EDT documented in this encounter Results * (ABNORMAL) PSA Screen (12/23/2022 8:43 AM EDT) PSA Screen 4.37(H) 0.00 - 4.00 ng/mL [facility] Comment: PLEASE NOTE: The above [...] Artis APRN CHEMISTRY ORDERABLES Performing Organization Address City/State/[facility] Co de Phone Number [facility] [place] [address] documented in this encounter Visit Diagnoses Not on filedocumented in this encounter Care Teams Human Resources Psychologist Relationship Specialty Start Date End Date Yoel Artis APRN [address] [place] [address] PCP - General Internal Medicine 11/18/22 07/29/24 documented as of this encounter
--- OUTSIDE RECORDS SUMMARY | 2024-09-19 13:10 | XMS_ITS | Encounter Summary ---
Author Organization [facility] [place] [address] Care Team Providers Care Tooth Cutter Contact Wheel Name Role Phone Yoel Artis APRN Primary Care Provider [phone] Reason for Referral * Consultation (Routine) - Closed Specialty Diagnoses / Procedures Referred By Theodore muro Referred To Contact Gastroenterology Diagnoses Proctalgia fugax Fecal smearing Constipation, unspecified constipation type group Yoel Dangelo APRN [facility] [place] [address] Paulette Glynn, PhD [facility] [place] [address] Referral ID Status Reason Start Date Expiration Date V isits Requested Visits Authorized [id number] Closed Consult, Test & Treat 06/01/2023 05/31/2024 1 1 Reason for Visit * Consultation (Routine) - Closed Specialty Diagnoses / Procedures Referred By Theodore muro Referred To Contact Gastroenterology Diagnoses Anal spasm motility- anal spasms Yoel Artis APRN [address] [place] [address] [facility] [address] [place] [address] Referral ID Status Reason Start Date Expiration Date V isits Requested Visits Authorized [id number] Closed Consult, Test & Treat PCP Updated and/or Approved 11/18/2022 11/18/2023 6 6 Encounter Details Date Type Department Care Team (Latest Contact Info) Description 06/01/2023 8:00 AM EDT TH Visit (TeleHealth) [place] [address] Yoel Dangelo, EXCEPTIONAL CHILDREN TEACHER [facility] [place] [address] Proctalgia fugax; Fecal smearing; Constipation, unspecified constipation [...] hear from us within 1 week: Clinic [phone] Motility Lab scheduling [phone] Endoscopy scheduling- [phone] Diagnostics: -Colonoscopy for rectal pain -Anorectal manometry [...] connection and our services, please visit the [facility] Behavioral health website at: [email or web address]. Our hope is that through these classes, [...] your insurance company or the [facility] billing office ([email or web address]). Your insurance company may request a CPT code if you ask about coverage. [place] [address]. If you're interested in attending any of these classes or workshops, please reach out to our scheduling team via [facility] or phone ([phone]). You should start a fiber supplement if [...] Handout for Patients and Primary Care Providers [facility] Gastrointestinal Motility, Esophageal, and Swallowing Disorders [...] what is the impact? 15-20% of general [place] population has IBS or FD or both 2nd most common cause for lost work days (after common cold) in [place] Estimated $30 billion dollar cost to [place] economy per year These disorders can have [...] with immediate onset of symptoms after infection); exterminator helper termite symptoms are expected in most patients however [...] to you primary care provider and/or local legal executive assistant and share this document. Treatment of [...] - this approach benefits most patients OTC (xvom-otl-uxmcout) medications can be used for ongoing bothersome [...] All-Bran psyllium buds, Metamucil, Konsyl, bulk psyllium (Dot [employer] and FitBionic stores) Specifically we recommend starting Metamucil or [...] but convincing medical evidence is still lacking Cwqy-iuu-eqhwgrr supplements including probiotics are not typically evaluated [...] to decrease antibiotic-associated diarrhea and antibiotic-related infections Cihj-xwv-Kmzrsnp Medications for Functional Gut Disorders Based on [...] a stool softener that is safe for exterminator helper termite usage (no risk of dependency) andthe dosage [...] (GERD) Often a combination of anti-nausea medications (pjwu-dhr-qyoeyyy or prescription) works better thanhigh doses of [...] for misuse/misinterpretation of this information Patient Resources [employer] https://www.gastro.org/practice-guidance/us-sijfdei-tlksns/ topic/hmcfsvkxw-ewiga-nkrfomae-ibs Badgut.org https://badgut.org/information-centre/s-q-buemotxbc-topics/ibs/ AboutIBS.org https://www.aboutibs.org/ Uptodate.com https://www.uptodate.com/contents/zkutsedyg-ynahp-tardplig-xirkcb-vqe-vccpcb documented in this encounter Progress Notes * [...] Denies weight loss Last colo 2017 at [facility] with no polyps. Current Regimen: Metamucil daily [...] office visit: 7 minutes Yoel Dangelo APRN [facility] [place] [address] documented in this encounter Plan of Treatment Upcoming Encounters Date Type Department Care Team (Late st Contact Info) Description 10/01/2024 10:00 AM EST Office Visit Cardiology at [address] [place] [address] Mushtaq Murphy APRN Scheduled Orders Name Type [...] type documented in this encounter Care Teams Tooth Cutter Contact Wheel Relationship Specialty Start Date End Date Yoel Artis APRN [address] [place] [address] PCP - General Internal Medicine 11/18/22 07/29/24 documented as of this encounter
--- OUTSIDE RECORDS SUMMARY | 2024-09-19 13:10 | XMS_ITS | Encounter Summary ---
[place] [address] Care Team Providers Care Green Marketer Name Role Phone Yoel Artis APRN Primary Care Provider [phone] Reason for Referral * Consultation (Routine) - Closed Specialty Diagnoses / Procedures Referred By Theodore muro Referred To Contact Gastroenterology Diagnoses Anal spasm motility- anal spasms Yoel Artis APRN [address] [place] [address] [facility] [address] [place] [address] Referral ID Status Reason Start Date Expiration Date V isits Requested Visits Authorized [id number] Closed Consult, Test & Treat PCP Updated and/or Approved 11/18/2022 11/18/2023 6 6 Encounter Details Date Type Department Care Team (Late st Contact Info) Description 11/18/2022 Transcribe Orders eDH Incoming Referrals [phone] Yoel Artis APRN [address] [place] [address] Anal spasm Social History Tobacco [...] AM EST Office Visit Cardiology at [address] [address] Mushtaq Murphy APRN Scheduled Referrals Name Type Priority Associated Diagnoses Order Schedule Referral to Gastroenterology Outpatient Referral Routine Anal spasm Ordered: 11/18/2022 documented as of this encounter Visit Diagnoses Diagnosis Anal spasm documented in this encounter Care Teams Green Marketer Relationship Specialty Start Date End Date Yoel Artis APRN [address] [place] [address] PCP - General Internal Medicine 11/18/22 07/29/24 documented as of this encounter
--- OUTSIDE RECORDS SUMMARY | 2024-09-19 13:10 | XMS_ITS | Encounter Summary ---
Author Organization [facility] Address [facility] [place] [address] Care Team Providers Care Repair Technician Name Role Phone Unknown Primary Care Provider Unavailabl e Encounter Details Date Type Department Care Team (Late st Contact Info) Description 01/13/2019 9:05 PM EDT Ancillary Procedure Radiology Library at [facility] [place] [phone] Sunny Aviles MD [facility] [place] [address] Social History Tobacco Use Types Packs/Day Years [...] Office Visit Cardiology at [address] [place] [address] Mushtaq Murphy APRN documented as of this [...] IMG FILM LIBRARY ORDERABLES Performing Organization Address City/State/[facility] Co de Phone Number [place], [place] documented in this encounter Visit Diagnoses Not on filedocumented in this encounter Care Teams Repair Technician Relationship Specialty Start Date End Date Unknown None PCP - General 08/04/10 01/16/19 documented as of this encounter
--- OUTSIDE RECORDS SUMMARY | 2024-09-19 13:10 | XMS_ITS | Encounter Summary ---
[place] [address] Care Team Providers Care Ip Litigation Paralegal Name Role Phone Unknown Primary Care Provider Unavailabl e Encounter Details Date Type Department Care Team (Late st Contact Info) Description 12/03/2018 Interpretation Only [address] [address] Ac Albrecht PA [address] [place] [address] [place] [address] Social History Tobacco Use Types Packs/Day Years [...] AM EST Office Visit Cardiology at [address] [address] Mushtaq Murphy, VAT HOUSE LABORER documented as of this encounter Procedures Procedure [...] below. ? Electronically signed by: Darvin Noyola [facility] ([phone]), at 12/03/2018 1:33 PM Narrative 12/03/2018 1:38 [...] number below. Electronically signed by: Darvin Noyola [facility]([phone]), at 12/03/2018 1:33 PM Ac SERRANO IMG DX ORDERABLES documented in this encounter Visit Diagnoses Not on filedocumented in this encounter Care Teams Ip Litigation Paralegal Relationship Specialty Start Date End Date Unknown None PCP - General 08/04/10 01/16/19 documented as of this encounter
[2024-09-19 14:06] LABS: Troponin I 38 ng/L (<or=76)
== END 2024-09-19 14:35 | disposition home or self-care (01) ==
PROVIDERS: Emergency Provider Physician Assistant; PCP Nurse Practitioner Primary Care
DX: R07.9 Chest pain, unspecified (principal); R94.31 Abnormal electrocardiogram [ECG] [EKG]; I25.2 Old myocardial infarction; I10 Essential (primary) hypertension; E78.5 Hyperlipidemia, unspecified; Z95.5 Presence of coronary angioplasty implant and graft; Z79.82 Long term (current) use of aspirin; Z79.01 Long term (current) use of anticoagulants; Z87.891 Personal history of nicotine dependence
CPT/HCPCS: 36415; 80053; 93005; 99285; 71046; 83735; 84484; 85025; 93010; 99284

== ENCOUNTER 2024-10-10 10:12 | Outpatient (RCR) | payer MEDICARE, SELFPAY ==
--- OUTSIDE RECORDS SUMMARY | 2024-09-14 10:18 | XMS_ITS | Clinical Summary ---
Author Organization [facility] Address [facility] [place] [address] Care Team Providers Care Catalyst Plant Supervisor Name Role Phone Alexia Mtz JET DYEING MACHINE TENDER Primary Care Provider [phone] Allergies No known active allergies Medications Medication [...] Description 07/31/2024 4:45 PM EST Anesthesia [place] [address] Venkatesh Mauricio MD 07/31/2024 4:30 PM EST - 07/31/2024 5:30 PM [place] [address] Maldonado Luis MD CARDIAC CATHETERIZATION 07/29/2024 6:32 PM EST - 07/29/2024 11:59 PM EST Hospital Encounter [facility] at [address] [phone] Arvin Becerra MD Discharge Disposition: Home 07/29/2024 12:00 PM EST - 07/29/2024 12:54 PM EST [place] [address] Vahe Marvin MD CARDIAC CATHETERIZATION 07/29/2024 11:45 AM EST - 08/04/2024 5:00 PM EST Hospital [place] [address] Vahe Marvin MD Dadekian, Gregory A, MD Welch, Terrence D, MD Vinod, Poornima, MD Kostojchin, Anastas, MD Kussaga, Frank M, MD ST elevation myocardial infarction involving left anterior descending (LAD) coronary artery; HFrEF (heart failure with reduced ejection fraction) Discharge Disposition: Home 07/29/2024 [place] [address] Susannah Watts PA 07/29/2024 Interpretation Only [address] [phone] Deondre Ferrera MD 07/29/2024 [place] [address] Ivan Hernandez MD 07/29/2024 External [place] [address] 07/28/2024 Interpretation Only [address] [address] Quinten Coffey MD 06/25/2024 [place] [address] Aubrey Cali MD Pyuria from [...] drink = 0.6 oz pur e alcohol) [facility] Utilities Answer Date Recorded In the past 12 months has th e [employer], gas, oil, or water [employer] threatened to shut off services in your [...] any time in the past 12 m [facility], were you homeless or [...] AM EST Office Visit Cardiology at [address] [phone] Mushtaq Murphy, FREDRICK Health Maintenance Due Date [...] MD HEMATOLOGY ORDERABLE S Performing Organization Address City/[facility]/ZIP Co de Phone Number [facility] [place] [place] [address] * Magnesium (08/04/2024 6:08 AM EST) Only the most recent of8 resultswithin the time period is included. Magnesium 0.85 0.69 - 1.07 mMol/L 08/04/2024 7:07 AM [facility] Blood VENOUS BLOOD SPECIMEN / Unknown Venipuncture / Unknown 08/04/2024 6:08 AM EST 08/04/2024 6:19 AM EST Bridgette Stauffer MD CHEMISTRY ORDERABLES Performing Organization Address [facility] Co de Phone Number [facility] [place] [address] * Basic Metabolic Panel (08/04/2024 6:08 AM [...] - 15 mMol/L 08/04/2024 7:07 AM EST [facility] Calcium 8.5 8.5 - 10.5 mg/dL 08/04/2024 7:07 AM EST [facility] Est Glomerular Filtration Rate - Male 74 mL/min/1. 73 m?? 08/04/2024 7:07 AM EST [facility] Comment: This patient's estimated GFR [...] Stauffer MD CHEMISTRY ORDERABLES Performing Organization Address City/[facility]/ZIP Co de Phone Number [facility] [place] [address] * POC, GLUCOSE (08/02/2024 7:47 AM EST) Only the most recent of16 resultswithin the time period is included. [facility] Signature Glucometer, POC 89 65 - 199 mg/dL 08/02/2024 7:47 AM EST [facility] Comment:Supplemental ranges: <140 mg/dL before meals <180 mg/dL all other times of the day. Blood CAPILLARY BLOOD / Unknown 08/02/2024 7:47 AM EST 08/02/2024 7:47 AM EST Arnel Parker MD POINT OF CARE TEST O RDERABLES Performing Organization Address City/[facility]/ZIP Co de Phone Number [facility] [place] [address] * Scan Doc: Telemetry Strips (08/02/2024 7:37 AM EST) Only the most recent of3 resultswithin the time period is included. Narrative 08/02/2024 7:37 AM EST Ordered by an unspecified provider. Scanning Provider MEDIA MGR SCAN EXT O RDR/RSLT * Potassium (08/01/2024 8:39 PM EST) Only the most recent of4 resultswithin the time period is included. Pathologist [facility] Potassium 4.0 3.5 - 5.0 mMol/L 08/01/2024 9:21 PM EST [facility] Blood VENOUS BLOOD SPECIMEN / Unknown Venipuncture / Unknown 08/01/2024 8:39 PM EST 08/01/2024 8:51 PM EST Jay Silverio MD CHEMISTRY ORDERABL ES [facility] [place] [address] * (ABNORMAL) Cooximetry, POC (08/01/2024 10:45 AM EST) Only the most recent of2 resultswithin the time period is included. pO2, Coox 32 mmHg 08/01/2024 10:48 AM EST [facility] Hemoglobin, Coox 12.9(L) 13.7 - 16.5 g/dL 08/01/2024 10:48 AM EST [facility] Oxyhemoglobin, Coox 66.7 % 08/01/2024 10:48 AM EST [facility] Carboxyhemoglo bin, Coox 1.1 % 08/01/2024 10:48 AM EST [facility] Comment: Nonsmokers: 0.5-1.5% COHB ?? Smokers: Variable ??but usually less than 10% ?? Toxic: 20-30% COHB ?? Lethal: Greater than 60% COHB Methemoglobin, Coox 0.3 <=1.5 % 08/01/2024 10:48 AM EST [facility] Blood (Mixed Venous) 08/01/2024 10:45 AM EST 08/01/2024 10:48 AM EST Arnel Parker MD POINT OF CARE TEST O RDERABLES Performing Organization Address [facility]/State/[facility] Co de Phone Number [facility] [place] [address] * CARDIAC CATHETERIZATION (07/31/2024 5:53 PM EST) Only the most recent of2 resultswithin the time period is included. Anatomical Region Laterality Modality Other Narrative 08/01/2024 12:37 PM EST ?[facility] ? Cardiac Catheterization/Intervention Report ? Patient Name: MontoyaKorey. ? Procedure Date: 07/31/2024 ? A #: [id number] ? Primary Physician: Maldonado Luis ? Case #: [id number] ? File Name: [id number] ? Catheterization Order Number: [id number] ? [facility] ? Final Report [place], [place] ? Patient Name: ? Korey Montoya ?ID#: ?[id number] ? : ?1950 ? Procedure Date: ? [...] ? Comments: ?Impella removed from the right [employer]PLANE [employer] with deployment of Perclose and ?Angioseal. ??Good [...] Procedure Note Maldonado Luis MD - 08/01/2024 [facility] Cardiac Catheterization/Intervention Report Patient Name: Korey Montoya Procedure Date: 07/31/2024 A #: [id number] Primary Physician: Maldonado Luis Case #: [id number] File Name: [id number] Catheterization Order Number: [id number] [facility] FinalReport [place], [place] Patient Name: Korey Montoya ID#:[id number] :1950 Procedure Date: July 31, 2024 Case [...] designated as ASA Class IV. The [facility] clinical frailtyscale is 4: Vulnerable. Diagnostic [...] procedures. 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 Good hemostasis. The attending physician was present for the entire procedure. Dr. Maldonado Luis M.D. was present during the moderate sedation intraservice time as documented by the sedation nurse. Case time =00:35. Dr. Maldonado Luis M.D. performed the vascular closure device and ventricular assist device removal. Maldonado Luis M.D. Electronically Signed by: Maldonaod Luis M.D. Report Finalized: 08/01/2024 12:31 Maldonado [...] mg/dL 07/31/2024 8:30 AM [facility] Comment:Glucose Concentratio n >=200 mg/dL plus symptoms is consistent with Diabetes Mellitus. Blood ARTERIAL BLOOD / Unknown 07/31/2024 8:29 AM EST 07/31/2024 8:30 AM EST Arnel Parker MD POINT OF CARE TEST O RDERABLES [facility] [place] [address] * (ABNORMAL) Hepatic Function Panel (07/31/2024 1:08 AM EST) Albumin 3.1(L) 3.2 - 5.2 g/dL 07/31/2024 1:46 AM [facility] Aspartate Aminotransferase 192(H) <=39 unit/L 07/31/2024 1:46 AM [facility] Alanine Aminotransferase 59(H) 0 - 55 unit/L 07/31/2024 1:46 AM [facility] Alkaline Phosphatase 46 40 - 130 unit/L 07/31/2024 1:46 AM [facility] Bilirubin, Total 0.4 <=1.3 mg/dL 07/31/2024 1:46 AM [facility] Bilirubin, Direct <0.2 0.0 - 0.3 mg/dL 07/31/2024 1:46 AM EST [facility] Protein, Total 5.0(L) 6.1 - 8.0 g/dL 07/31/2024 1:46 AM [facility] Blood VENOUS BLOOD SPECIMEN / Unknown Venipuncture / Unknown 07/31/2024 1:08 AM EST 07/31/2024 1:18 AM EST Arnel Parker MD CHEMISTRY ORDERABLES Performing Organization Address City/[facility]/ZIP Co de Phone Number [facility] [place] [address] * (ABNORMAL) Phosphorus (07/30/2024 3:08 PM EST) Only the most recent of3 resultswithin the time period is included. Phosphorus 2.1(L) 2.5 - 4.5 mg/dL 07/30/2024 3:58 PM EST [facility] Blood VENOUS BLOOD SPECIMEN / Unknown Venipuncture / Unknown 07/30/2024 3:08 PM EST 07/30/2024 3:12 PM EST Jay Silverio MD CHEMISTRY ORDERABL ES Performing Organization Address City/[facility]/ZIP Co de Phone Number [facility] [place] [address] * ECHO LMTD W CONTRAST W LMTD SPEC DOPP COLOR DOPP (07/30/2024 11:42 AM EST) Anatomical Region Laterality Modality Cardiac Other 07/30/2024 10:2 2 AM EST Narrative 07/30/2024 12:34 PM EST [address] [place] [address] ? Echocardiogram Report Name: KOREY MONTOYA ? Study Date: 07/30/2024 10:22 AMBP: 124/66 mmHg : 1950 ? Height: 168 cm ? Account: [id number] Age: 74 yrs ? Weight: 65 kg Gender: Male ?BSA: 1.7 m2 Ordering Physician: Jay iSlverio MD Referring Physician: DEONDRE FERRERA Performed By: [...] Compared to the overnight study by the slot key person fellow the impella position is stable. 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 Procedure Limited - 73291. Image enhancement Definity was used for both [...] Note Kathleen Banda MD - 07/30/2024 [address] [place] [address] Echocardiogram Report Name: KOREY MONTOYA Study Date: 410:22 AMBP: 124/66 mmHg : 1950 Height: 168 cm Account: [id number] Age: 74 yrs Weight: 65 kg Gender: [...] Compared to the overnight study by the slot key person fellow the impella positionis stable. The global left ventricular systolic function has improvedpredominantly via recruitment outside the LAD territory which remains akinetic. Procedure Limited - 45265. Image enhancement Definity was used for both [...] 8,651(H) <=22 ng/L 07/30/2024 9:06 AM EST [facility] Comment: This patient's troponin T [...] can be found in the [facility] Test Catalog Troponin - [email or web address] Reference: Fourth Dodge Definition of Myocardial Infarction. Journal of the [employer] College of Cardiology 2018;72:3066-1860 Blood VENOUS BLOOD SPECIMEN / Unknown Venipuncture / Unknown 07/30/2024 8:09 AM EST 07/30/2024 8:26 AM EST Jay Silverio MD CHEMISTRY ORDERABL ES Performing Organization Address City/State/[facility] Co de Phone Number [facility] [place] [address] * Echocardiogram Transthoracic (07/30/2024 1:41 AM EST) Anatomical Region Laterality Modality Cardiac Other 07/30/2024 1:41 AM EST Narrative 07/30/2024 8:23 AM EST [address] [place] [address] ? Echocardiogram Report Name: KOREY MONTOYA ? Study Date: 07/30/2024 01:41 AM : 1950 ? Height: 168 cm Age: 74 yrs ? Weight: 5.9 kg Gender: Male ?BSA: 0.63 m2 Performed By: Beatris Ching MD Reason For Study: STEMI, VT History: ASCVD, HTN, HLD Interpreting Fellow: Beatris Ching. Interpretation Summary This is a limited study performed by a fellow slot key person to evaluate for cardiogenic shock with impella [...] study available for comparison. Procedure Limited - 00793. Suboptimal quality. There is sinus bradycardia. Left [...] Note Kathleen Banda MD - 07/30/2024 [address] [place] [address] Echocardiogram Report Name: KOREY MONTOYA Study Date: 07/30/2024 01:41AM : 1950 Height: 168 cm Age: 74 yrs Weight: 5.9 kg Gender: Male BSA: 0.63 m2 Performed By: Beatris Ching MD Reason For Study: STEMI, VT History: ASCVD, HTN, HLD Interpreting Fellow: Beatris Ching. Interpretation Summary This is a limited study performed by a fellow slot key person to evaluate forcardiogenic shock with impella in. [...] study available for comparison. Procedure Limited - 69071. Suboptimal quality. There is sinus bradycardia. Left [...] Recheck AB POSITIVE 07/29/2024 10:13 PM EST [facility] Blood VENOUS BLOOD SPECIMEN / Unknown Venipuncture / Unknown 07/29/2024 6:43 PM EST 07/29/2024 7:15 PM EST Jay Silverio MD BLOOD BANK LAB ORD ERABLES Performing Organization Address City/[facility]/ZIP Co de Phone Number [facility] [place] [address] * Type and screen ([facility]/JONG/MAGALIE) (07/29/2024 5:56 PM EST) Pathologist [facility] ABORH Type AB POSITIVE 07/29/2024 9:44 PM EST [facility] PATIENT HISTORY Not Found 07/29/2024 9:44 PM EST [facility] Expires at [id number] on: 08/01/2024 07/29/2024 9:44 PM EST [facility] ANTIBODY SCREEN AUTOMATED Negative 07/29/2024 9:44 PM EST [facility] T&S only valid at [facility] 07/29/2024 9:44 PM EST [facility] Blood VENOUS BLOOD SPECIMEN / Unknown Venipuncture / Unknown 07/29/2024 5:56 PM EST 07/29/2024 6:07 PM EST Narrative [facility] - 07/29/2024 9:44 PM EST This Type and Screen result is only valid at the [facility] Jay Silverio MD BLOOD BANK LAB ORD ERABLES Performing Organization Address City/[facility] Co de Phone Number [facility] [place] [address] * EKG 12 Lead (07/29/2024 4:21 PM EST) Only the most recent of2 resultswithin the time period is included. Ventricular rate 72 BPM MUSE SYSTEM Atrial Rate 72 BPM MUSE SYSTEM P-R Interval 168 ms MUSE SYSTEM QRS Duration 82 ms MUSE SYSTEM Q-T Interval 392 ms MUSE SYSTEM QTC Calculated (Bezet) 429 ms MUSE SYSTEM Calculated P [place] 71 degrees MUSE SYSTEM Calculated R [place] 77 degrees MUSE SYSTEM Calculated T [place] 28 degrees MUSE SYSTEM INTERPRETATION Sinus rhythm [...] Silverio MD ECG ORDERABLES Performing Organization Address City/[facility]/ZIP Co de Phone Number MUSE SYSTEM * Blood culture (07/29/2024 4:08 PM EST) Only the most recent of2 resultswithin the time period is included. Blood Culture No growth at 120 hours 08/03/2024 5:01 PM EST [facility] Blood VENOUS BLOOD SPECIMEN / Unknown Venipuncture / Unknown 07/29/2024 4:08 PM EST 07/29/2024 4:15 PM EST Jay Silverio MD MICROBIOLOGY - BLO OD ORDERABLES Performing Organization Address City/[facility] Co de Phone Number [facility] [place] [address] * XR Chest One View (07/29/2024 2:30 PM EST) Only the most recent of3 resultswithin the time period is included. WORKSTATION ID [id number] DH RAD Anatomical Region Laterality Modality Chest [...] have questions please contact the health career guidance technician that requested your imaging first. ? Narrative [...] who have questions please contactthe health career guidance technician that requested your imaging first. Vahe Marvin MD IMG DX ORDERABLES * TSH Amidon (07/29/2024 2:03 PM EST) Thyroid Stimulating Hormone 0.70 0.27 - 4.20 mcIU/mL 07/29/2024 2:52 PM EST [facility] Blood VENOUS BLOOD SPECIMEN / Unknown Venipuncture / Unknown 07/29/2024 2:03 PM EST 07/29/2024 2:14 PM EST Vahe Marvin MD CHEMISTRY ORDERABLES Performing Organization Address City/[facility]/ZIP Co de Phone Number [facility] [place] [address] * CRP, acute inflammation (07/29/2024 2:03 PM EST) C-Reactive Protein <3.0 <=4.9 mg/L 07/29/2024 2:52 PM EST [facility] Blood VENOUS BLOOD SPECIMEN / Unknown Venipuncture / Unknown 07/29/2024 2:03 PM EST 07/29/2024 2:14 PM EST Vahe Marvin MD CHEMISTRY ORDERABLES Performing Organization Address City/[facility]/ZIP Co de Phone Number [facility] [place] [address] * (ABNORMAL) APTT (07/29/2024 2:03 PM EST) Partial Thromboplastin Time >160(HHH) 25 - 37 sec 07/29/2024 2:56 PM EST [facility] Blood VENOUS BLOOD SPECIMEN / Unknown Venipuncture / Unknown 07/29/2024 2:03 PM EST 07/29/2024 2:13 PM EST Vahe Marvin MD HEMATOLOGY ORDERABLE S [facility] [place] [address] * (ABNORMAL) Prothrombin Time (07/29/2024 2:03 PM EST) Prothrombin Time 14.2(H) 9.4 - 12.5 sec 07/29/2024 2:56 PM EST [facility] International Normalization Ratio 1.3 <=4.9 07/29/2024 2:56 PM EST [facility] Comment: An INR < 2.0 [...] EST Vahe Marvin MD HEMATOLOGY ORDERABLE S [facility] [place] [address] * Hemoglobin A1c (07/29/2024 2:03 PM EST) Pathologist [facility] Hemoglobin A1c 5.3 4.3 - 5.6 % 07/29/2024 2:41 PM EST [facility] Comment: Per ADA guidelines, without [...] Estimated Average Glucose 07/29/2024 2:41 PM EST [facility] Comment:Estimated Average Gl ucose not appropriate for patients over 70 years of age. Blood VENOUS BLOOD SPECIMEN / Unknown Venipuncture / Unknown 07/29/2024 2:03 PM EST 07/29/2024 2:14 PM EST [facility] - 07/29/2024 2:41 PM EST Estimated average glucose (eAG) is calculated from the equation described in: Quinten DM, Rikki J, Reno R, et al. ??Translating the A1C assay into estimated average glucose values. ??Diabetes Care 2008:31(8):2950-2970. Additional resources are available on the ADA website (diabetes.org). Vahe Marvin MD CHEMISTRY ORDERABLES [facility] [place] [address] * Lipid Panel (Reflex Direct LDL) (07/29/2024 2:03 PM EST) [facility] Cholesterol, Total 133 mg/dL 07/29/2024 2:52 [...] HDL Cholesterol 58 mg/dL 4 2:52 PM [facility] Cholesterol 75 mg/dL 07/29/2024 2:52 PM EST [facility] Comment: Desirable: <130 mg/dL Above Desirable: 130-159 mg/dL Borderline High: 160-189 mg/dL High: 190-219 mg/dL Very High: > or = 220 mg/dL Blood VENOUS BLOOD SPECIMEN / Unknown Venipuncture / Unknown 07/29/2024 2:03 PM EST 07/29/2024 2:14 PM EST [facility] - 07/29/2024 2:52 PM [...] ACC/AHA Guidelines (most recently Rolf et al. [facility] 06/15/22): * For individuals with [...] artery disease) Vahe Marvin MD CHEMISTRY ORDERABLES [facility] [place] [address] * (ABNORMAL) Comprehensive metabolic panel (07/29/2024 2:03 PM EST) Glucose 243(H) 65 - 199 mg/dL 07/29/2024 3:11 PM EST [facility] Comment:Glucose Concentratio n >=200 mg/dL plus symptoms is consistent with Diabetes Mellitus. Blood Urea Nitrogen 13 10 - 20 mg/dL 07/29/2024 3:11 PM EST [facility] Creatinine 0.88 0.80 - 1.50 mg/dL 07/29/2024 3:11 PM EST [facility] Sodium 138 135 - 145 mMol/L 07/29/2024 3:11 PM EST [facility] Potassium 3.6 3.5 - 5.0 mMol/L 07/29/2024 3:11 PM EST [facility] Chloride 104 98 - 107 mMol/L 07/29/2024 3:11 PM EST [facility] Carbon Dioxide 19(L) 22 - 31 mMol/L 07/29/2024 3:11 PM EST [facility] Anion Gap 15 5 - 15 mMol/L 07/29/2024 3:11 PM EST [facility] Calcium 8.0(L) 8.5 - 10.5 [...] PM EST Vahe Marvin MD CHEMISTRY ORDERABLES [facility] [place] [address] * (ABNORMAL) Blood Gas, Venous POC (07/29/2024 2:01 PM EST) pH, Venous 7.30(L) 7.32 - 7.42 07/29/2024 2:02 PM [facility] PCO2, Venous 42 38 - [...] 98 - 107 mmol/L 07/29/2024 2:02 PM [facility] Glucose, Venous 229(H) 65 - 199 mg/dL 07/29/2024 2:02 PM [facility] Comment:Glucose Concentratio n >=200 mg/dL plus symptoms is consistent with Diabetes Mellitus. Lactate, Venous 3.1(H) 0.5 - 2.2 mmol/L 07/29/2024 2:02 PM [facility] Ionized Calcium, Venous 1.11(L) 1.15 - 1.33 mmol/L 07/29/2024 2:02 PM [facility] Blood VENOUS BLOOD SPECIMEN / Unknown 07/29/2024 2:01 PM EST 07/29/2024 2:02 PM EST Vahe Marvin MD POINT OF CARE TEST O RDERABLES [facility] [place] [address] * (ABNORMAL) BLOOD GAS, POC (07/29/2024 12:46 PM EST) Only the most recent of2 resultswithin the time period is included. Sodium, POC 139 135 - 145 mmol/L 07/30/2024 7:30 AM [facility] Potassium, POC 3.4(L) 3.5 - [...] - 16.5 g/dL 07/30/2024 7:30 AM EST [facility] Comment:The calculation of h emoglobin from hematocrit assumes a normal MCHC. Bicarbonate, POC 19.8(L) 20.0 - 26.0 mmol/L 07/30/2024 7:30 AM EST [facility] Carbon Dioxide, POC 21(L) 22 - 31 mmol/L 07/30/2024 7:30 AM EST [facility] Blood VENOUS BLOOD SPECIMEN / Unknown 07/29/2024 12:46 PM EST 07/30/2024 7:30 AM EST Vahe Marvin MD POINT OF CARE TEST O RDERABLES Performing Organization Address [facility]/[place] [address] * External Cardiology Result (07/29/2024 10:13 AM EST) Anatomical Region Laterality Modality Other Historical Provider EXTERNAL CARDIOLO GY RESULT * Urine culture (06/25/2024 11:55 AM EDT) Urine Culture No growth 06/26/2024 12:22 PM EDT [facility] Urine URINE SPECIMEN OBTAINED BY CLEAN CATCH PROCEDURE / Unknown 06/25/2024 11:55 AM EDT 06/25/2024 5:18 PM EDT Aubrey Cali MD MICROBIOLOGY - GENER AL ORDERABLES Performing Organization Address City/[facility]/ZIP Co de Phone Number [facility] [place] [address] * COLONOSCOPY (08/30/2023 10:57 AM EST) COLONOSCOPY [facility] Endoscopy Procedure Date: 08/30/2023 10:57 AM ? Patient Name: Korey Montoya ? Date of : 1950 ? Age: 73 ? Order #: [id number] ? Instrument Name: [id number] ? Procedure: ? Colonoscopy Indications: ? Rectal [...] preparation was evaluated ? using the BBPS ([place] Bowel ? Preparation Scale) with scores of: [...] 08/30/2023 10:5 7 AM EST Yoel Artis [employer] MACHINE TENDER GENERAL SURGICAL ORD ERABLES PROVATION from Last 3 Months or Most Recently Relevant to Health Maintenance Advance Directives * Attempt Cardiopulmonary Resuscitation - Inpatient (Latest Code Status on File) Date Activated Date Inactivated Comments 07/29/2024 2:01 PM 08/04/2024 7:34 PM Question Answer Comments Code Status decision made by: Patient Content of discussion: pre-arrest limitations Care Teams Catalyst Plant Supervisor Relationship Specialty Start Date End Date Alexia Mtz APRN [address] [place] [id number] PCP - General Family Medicine 07/30/24
--- OUTSIDE RECORDS SUMMARY | 2024-09-14 10:19 | XMS_ITS | Encounter Summary ---
[place] [address] Care Team Providers Care Sales Property Manager Name Role Phone Alexia Mtz FREDRICK Primary Care Provider [phone] Reason for Visit * Auth/Cert (Routine) Specialty Diagnoses / Procedures Referred By Theodore muro Referred To Contact Diagnoses STEMI (ST elevation myocardial infarction) STEMI Procedures ER SUI Vahe Marvin MD [facility] [place] [address] [facility] Referral ID Status Reason Start Date Expiration Date Visits Re quested Visits Authorized [id number] 1 1 Encounter Details Date Type Department Care Team (Late st Contact Info) Description 07/31/2024 4:30 PM EST - 07/31/2024 5:30 PM EST Surgery [place] [id number] Maldonado Luis MD [facility] [address] CARDIAC CATHETERIZATION Social History Tobacco Use Types Packs/Day Years Used Date Smoking Tobacco: Former Cigarettes Smokeless Tobacco: Never Alcohol Use Standard Drinks/Week Comments Not Currently 0 (1 standard drink = 0.6 oz pur e alcohol) [facility] Utilities Answer Date Recorded In the past 12 months has Domains Income electric, gas, oil, or water company threatened [...] any time in the past 12 m [facility], were you homeless or living in a custodial (including now)? No 07/30/2024 IPV Inpatient Questions [...] Korey Montoya Patient Age: 74 y.o. Language: South Korean Race: White Ethnicity: Not nor Admit date: [...] please contact your inpatient physician through the [facility] Thermal Engineer . Issues afterhours and on weekends [...] EKG. Patient transferred via air ambulance to [facility] on 07/29 for LHC and LOW to [...] EKG. Was transferred via air ambulance to [facility] for further management and LHC demonstrated 100% [...] the next year. Access was via right CLOTHES SEPARATOR and this sitewas clean, dry and intact [...] for Chest pain. Replaces: nitroGLYcerin 400 mcg/spray [place], Non-Aerosol 0.4 mg Quantity: 90 tablet Refills: [...] Refills: 0 STOPPED Medications nitroGLYcerin 400 mcg/spray [place], Non-Aerosol Commonly known as: NITROLINGUAL Replaced by: [...] of one year. After this time, your dictating transcribing machine servicer will determine if you need to continue [...] away. Stay on the phone. The emergency loader operator/ground leader will tell you what to do. Nitroglycerin [...] appointments: During 8am-5pm Tuesday through Tuesday call [phone] to speak with a nurse in the cardiology clinic All other times call [phone] and ask to speak to the metal tank erector business operations analyst. Follow up Appointments: PCP Alexia Mtz, COMMISSARY WORKER [phone]. Please call to establish a follow up appointment within 1-2 weeks of discharge. Cardiology. Referral to heart failure has been sent. General Instructions None Future Appointments and Orders Future Orders Complete By Expires Referral to Cardiac Rehab [[id number] Custom] As directed Process Instructions: If no progress note charted, please enter Clinical details in comments. Scheduling Instructions: Questions: My question or request is: STEMI, PCI- cardiac rehab at [facility] Referral to Cardiology [REF12 Custom] As [...] of one year. After this time, your dictating transcribing machine servicer will determine if you need to continue [...] away. Stay on the phone. The emergency loader operator/ground leader will tell you what to do. Nitroglycerin [...] appointments: During 8am-5pm Tuesday through Tuesday call [phone] to speak with a nurse in the cardiology clinic All other times call [phone] and ask to speak to the metal tank erector business operations analyst. Follow up Appointments: PCP Alexia Mtz, COMMISSARY WORKER [phone]. Please call to establish a follow up [...] EKG. Patient transferred via air ambulance to [facility] on 07/29 for LHC and LOW to LAD for 100% occlusion Social History: Pt lives with his in a 1 level home with 2 NAOMI. 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 He [...] Total time: 35 (tef) minutes Time IN/OUT: 0782-1025 ZAIDA DUBOSE PT Pager: [phone] Physical Therapy Inpatient Rehabilitation Department * Yrn Ward MD - 08/03/2024 10:38 AM EST CV HOSPITALIST 2 - [facility] DAILY PROGRESS NOTE Page [phone] to reach a provider 04/04 Admit Date: [...] Compared to the overnight study by the business operations analyst fellow the impella position is stable. 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 [facility] 07/29/24 Conclusions: * One vessel coronary artery disease (LAD) * Mild pulmonary hypertension * Elevated pulmonary capillary wedge pressure * Successful stent insertion of the proximal LAD lesion * See Dual Antiplatelet (DAPT) Recommendations above * Successful impella placement for cardiogenic shock. Telemetry: I have personally reviewed and interpreted the telemetry from the last 24 hours. [facility] Assessment: ASSESSMENT: Korey Montoya is a 74 y.o. male w/ PMH of hypertension, HLD, and BPH who presents for chief concern of chest pain after being found to have ST elevations on EKG. Patient transferred via air ambulance to [facility] on 07/29 for LHC and LOW to [...] to be determined OT: PCP Alexia Mtz, COMMISSARY WORKER [phone] * Zaida Dubose, PT - 08/02/2024 2:08 PM EST Physical Therapy Evaluation Patient profile: Korey Montoya is a 74 y.o. male w/ PMH of hypertension, HLD, and BPH who presents for chief concern of chest pain after being found to have ST elevations on EKG. Patient transferred via air ambulance to [facility] on 07/29 for LHC and LOW to LAD for 100% occlusion Social History: Pt lives with his in a 1 level home with 2 NAOMI. 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 He [...] Total time: 37 (eval) minutes Time IN/OUT: 7636-8815 ZAIDA DUBOSE, PT Pager: [phone] Physical Therapy Inpatient Rehabilitation Department * Gagan [...] EKG. Patient transferred via air ambulance to [facility] on 07/29 for LHC and LOW to LAD for 100% occlusion. TTE showed apical akinesis and inferior hypokinesis with EF 20%. RHC showed elevated filling pressures. Impella placed and P-level 6 at time of transfer to [facility]. CI initially 1.97, improved to 2.2 After [...] PCP: Alexia Mtz APRN PCP phone number: [phone] Date of Admission: 07/29/2024 ( Hospital Day 4 days ) Attending:Bridgette Stauffer MD ID: Korey Montoya is a 74 y.o. male w/ PMH of hypertension, HLD, and BPH on Hospital Day4 for chief concern of chest pain after being found to have ST elevations on EKG. Patient transferred via air ambulance to [facility] on 07/29 for LHC and LWO to LAD for 100% occlusion. 24 Hour [...] 07/29/24 1621 PHART 7.48* 7.44 7.38 7.37 OGQ6JJV 29* 29* 34* 36 PO2ART 71* 109* 141* 71* XJZ2NIV 20.6 19.4* 19.5* 20.4 VBG (Venous Blood Gas) Recent Labs 07/29/24 1401 PHVEN 7.30* PO2VEN 39 SRE3PCM 20.1* Mixed Venous Sat No results for input(s): M5QBMP5 in the last 168 hours. Objective: Vitals [...] 07/29/24 1621 PHART 7.48* 7.44 7.38 7.37 CHG2GSE 29* 29* 34* 36 PO2ART 71* 109* 141* 71* GCU1LGV 20.6 19.4* 19.5* 20.4 VBG (Venous Blood Gas) Recent Labs 07/29/24 1401 PHVEN 7.30* PO2VEN 39 FCL2EDB 20.1* Mixed Venous Sat No results for input(s): G2YVCL0 in the last 168 hours. Microbiology: Microbiology Results (Last 30 days) Procedure Component Value Units Date/Time Blood culture [[id number]] Collected: 07/29/241607 Lab Status: Preliminary result Specimen: Blood, Venous Updated: 08/01/241700 Blood Culture No growth at 72 hours Blood culture [[id number]] Collected: 07/29/241607 Lab Status: Preliminary result Specimen: Blood, Venous Updated: 08/01/241700 Blood Culture No growth at 72 hours Imaging: Results for orders placed or performed during the hospital encounter of 07/29/24 XR Chest One View (Exam End: 07/29/2024 2:30 PM) Result Value WORKSTATION ID [id number] Impression 1. No pulmonary edema. 2. No pleural effusion. 3. No pneumothorax. Thank you for letting us participate in the care of this patient. If you are a health care provider and have any questions regarding this report, please contact the number below. For patients who have questions please contact the health care management coordinator that requested your imaging first. Electronically signed by: Chris Candelaria MD, [facility] ([phone]), at 07/29/2024 3:21 PM TTE ( 07/30/24) [...] Compared to the overnight study by the business operations analyst fellow the impella position is stable. [...] EKG. Patient transferred via air ambulance to [facility] on 07/29 for LHC and LOW to [...] Susannah Ornelas MD Internal Medicine, PGY-1 Cardiology, [facility] 08/02/24 12:45 PM CARDIOLOGY STAFF NOTE I [...] today). Transfer to floor. Krystal Parker MD, [facility], [facility] Staff Doctor Of Naprapathic Medicine value advisor * Gagan Catherine MD - 08/01/2024 11:12 [...] EKG. Patient transferred via air ambulance to [facility] on 07/29 for LHC and LOW to LAD for 100% occlusion. TTE showed apical akinesis and inferior hypokinesis with EF 20%. RHC showed elevated filling pressures. Impella placed and P-level 6 at time of transfer to [facility]. CI initially 1.97, improved to 2.2 After impella. Received about 3 L of fluid during procedural course. Patient initially required norepinephrine 30, epinephrine 10, and vasopressin 0.04 for hemodynamic support, which was weaned upon arrival to [facility] to norepinephrine 20and levo 0.04 N - [...] PCP: Alexia Mtz APRN PCP phone number: [phone] Date of Admission: 07/29/2024 ( Hospital Day 3 days ) Attending:Krystal Parker MD ID: Korey Montoya is a 74 y.o. male w/ PMH of hypertension, HLD, and BPH on Hospital Day3 for chief concern of chest pain after being found to have ST elevations on EKG. Patient transferred via air ambulance to [facility] on 07/29 for LHC and LOW to [...] 07/29/24 1621 PHART 7.48* 7.44 7.38 7.37 PLL5XTV 29* 29* 34* 36 PO2ART 71* 109* 141* 71* IKY2SWY 20.6 19.4* 19.5* 20.4 VBG (Venous Blood Gas) Recent Labs 07/29/24 1401 PHVEN 7.30* PO2VEN 39 VEW5HHY 20.1* Mixed Venous Sat No results for input(s): M0WQPE6 in the last 168 hours. PA Catheter [...] 07/29/24 1621 PHART 7.48* 7.44 7.38 7.37 GVC6BUV 29* 29* 34* 36 PO2ART 71* 109* 141* 71* EIT0PVW 20.6 19.4* 19.5* 20.4 VBG (Venous Blood Gas) Recent Labs 07/29/24 1401 PHVEN 7.30* PO2VEN 39 MPZ7TMX 20.1* Mixed Venous Sat No results for input(s): E6YKCU8 in the last 168 hours. Microbiology: Microbiology Results (Last 30 days) Procedure Component Value Units Date/Time Blood culture [[id number]] Collected: 07/29/24 160 Lab Status: Preliminary result Specimen: Blood, Venous Updated: 07/31/24 170 Blood Culture No growth at 48 hours Blood culture [[id number]] Collected: 07/29/24 1608 Lab Status: Preliminary result Specimen: Blood, Venous Updated: 07/31/24 1701 Blood Culture No growth at 48 hours Imaging: Results for orders placed or performed during the hospital encounter of 07/29/24 XR Chest One View (Exam End: 07/29/2024 2:30 PM) Result Value WORKSTATION ID [id number] Impression 1. No pulmonary edema. 2. No pleural effusion. 3. No pneumothorax. Thank you for letting us participate in the care of this patient. If you are a health care provider and have any questions regarding this report, please contact the number below. For patients who have questions please contact the health care management coordinator that requested your imaging first. Electronically signed by: Chris Candelaria MD, [facility] ([phone]), at 07/29/2024 3:21 PM TTE ( 07/30/24) [...] Compared to the overnight study by the business operations analyst fellow the impella position is stable. [...] EKG. Patient transferred via air ambulance to [facility] on 07/29 for LHC and LOW to [...] Susannah Ornelas MD Internal Medicine, PGY-1 Cardiology, [facility] 08/01/24 7:13 AM CARDIOLOGY STAFF NOTE I [...] with him; questions answered. Krystal Parker MD, [facility], [facility] Staff Doctor Of Naprapathic Medicine value advisor * Krystal Parker MD - 07/31/2024 1:06 [...] EKG. Patient transferred via air ambulance to [facility] on 07/29 for LHC and LOW to LAD for 100% occlusion. TTE showed apical akinesis and inferior hypokinesis with EF 20%. RHC showed elevated filling pressures. Impella placed and P-level 6 at time of transfer to [facility]. CI initially 1.97, improved to 2.2 After impella. Received about 3 L of fluid during procedural course. Patient initially required norepinephrine 30, epinephrine 10, and vasopressin 0.04 for hemodynamic support, which was weaned upon arrival to [facility] to norepinephrine 20and levo 0.04 N - [...] PCP: Alexia Mtz APRN PCP phone number: [phone] Date of Admission: 07/29/2024 ( Hospital Day 2 days ) Attending:Krystal Parker MD ID: Korey Montoya is a 74 y.o. male w/ PMH of hypertension, HLD, and BPH on Hospital Day2 for chief concern of chest pain after being found to have ST elevations on EKG. Patient transferred via air ambulance to [facility] on 07/29 for LHC and LOW to [...] 0057 07/29/24 1621 PHART 7.44 7.38 7.37 RHD8ITX 29* 34* 36 PO2ART 109* 141* 71* VZO8CAD 19.4* 19.5* 20.4 VBG (Venous Blood Gas) Recent Labs 07/29/24 1401 PHVEN 7.30* PO2VEN 39 IKX2ZYD 20.1* Mixed Venous Sat No results for input(s): X5IWZK8 in the last 168 hours. PA Catheter [...] 0057 07/29/24 1621 PHART 7.44 7.38 7.37 HCE2DIJ 29* 34* 36 PO2ART 109* 141* 71* LNS9AMG 19.4* 19.5* 20.4 VBG (Venous Blood Gas) Recent Labs 07/29/24 1401 PHVEN 7.30* PO2VEN 39 HXO1JFB 20.1* Mixed Venous Sat No results for input(s): F5XUCH0 in the last 168 hours. Microbiology: Microbiology Results (Last 30 days) Procedure Component Value Units Date/Time Blood culture [[id number]] Collected: 07/29/241607 Lab Status: Preliminary result Specimen: Blood, Venous Updated: 07/30/241700 Blood Culture No Growth at 18-24 hrs. Blood culture [[id number]] Collected: 07/29/241607 Lab Status: Preliminary result Specimen: Blood, Venous Updated: 07/30/241700 Blood Culture No Growth at 18-24 hrs. Imaging: Results for orders placed or performed during the hospital encounter of 07/29/24 XR Chest One View (Exam End: 07/29/2024 2:30 PM) Result Value WORKSTATION ID [id number] Impression 1. No pulmonary edema. 2. No pleural effusion. 3. No pneumothorax. Thank you for letting us participate in the care of this patient. If you are a health care provider and have any questions regarding this report, please contact the number below. For patients who have questions please contact the health care management coordinator that requested your imaging first. Electronically signed by: Chris Candelaria MD, [facility] ([phone]), at 07/29/2024 3:21 PM TTE ( 07/30/24) [...] Compared to the overnight study by the business operations analyst fellow the impella position is stable. [...] EKG. Patient transferred via air ambulance to [facility] on 07/29 for LHC and LOW to [...] work to optimize volume status while continuing ukmoijq-wvjvyh-jtogfyzifo therapies at this time. Obtain comprehensive TTE. [...] ILL WITH THESE DIAGNOSES BEING MANAGED BY [facility] TEAM: # Anterior STEMI, late-presenting # Cardiogenic [...] EKG. Patient transferred via air ambulance to [facility] on 07/29 for LHC and LOW to LAD for 100% occlusion. TTE showed apical akinesis and inferior hypokinesis with EF 20%. RHC showed elevated filling pressures. Impella placed and P-level 6 at time of transfer to [facility]. CI initially 1.97, improved to 2.2 After impella. Received about 3 L of fluid during procedural course. Patient initially required norepinephrine 30, epinephrine 10, and vasopressin 0.04 for hemodynamic support, which was weaned upon arrival to [facility] to norepinephrine 20and levo 0.04 N - [...] PCP: Yoel Artis APRN PCP phone number: [phone] Date of Admission: 07/29/2024 ( Hospital Day 1 day ) Attending:Aubree Silverio MD ID: Korey Montoya is a 74 y.o. male w/ PMH of hypertension, HLD, and BPH on Hospital Day1 for chief concern of chest pain after being found to have ST elevations on EKG. Patient transferred via air ambulance to [facility] on 07/29 for LHC and LOW to LAD for 100% occlusion. 24 Hour Events/Subjective: Yesterday: - Admitted to the [facility] - After his LHC, he demonstrated significant [...] 0057 07/29/24 1621 PHART 7.44 7.38 7.37 OOH2EYY 29* 34* 36 PO2ART 109* 141* 71* DAI1QPP 19.4* 19.5* 20.4 VBG (Venous Blood Gas) Recent Labs 07/29/24 1401 PHVEN 7.30* PO2VEN 39 BTN1PYA 20.1* Lactate ( Last 12 hours) 1.3 >> 1.2 Mixed Venous Sat No results for input(s): K5IDSL9 in the last 168 hours. PA Catheter [...] 0057 07/29/24 1621 PHART 7.44 7.38 7.37 PWG5LLA 29* 34* 36 PO2ART 109* 141* 71* HBJ4SCB 19.4* 19.5* 20.4 VBG (Venous Blood Gas) Recent Labs 07/29/24 1401 PHVEN 7.30* PO2VEN 39 FWM1JQF 20.1* Mixed Venous Sat No results for input(s): I2HQMT2 in the last 168 hours. Microbiology: Microbiology Results (Last 30 days) Procedure Component Value Units Date/Time Blood culture [[id number]] Collected: 07/29/24 1608 Lab Status: In process Specimen: Blood, Venous Updated: 07/29/24 1626 Blood culture [[id number]] Collected: 07/29/24 1608 Lab Status: In process Specimen: Blood, Venous Updated: 07/29/24 1615 Imaging: Results for orders placed or performed during the hospital encounter of 07/29/24 XR Chest One View (Exam End: 07/29/2024 2:30 PM) Result Value WORKSTATION ID [id number] Impression 1. No pulmonary edema. 2. No pleural effusion. 3. No pneumothorax. Thank you for letting us participate in the care of this patient. If you are a health care provider and have any questions regarding this report, please contact the number below. For patients who have questions please contact the health care management coordinator that requested your imaging first. Electronically signed by: Chris Candelaria MD, [facility] ([phone]), at 07/29/2024 3:21 PM Medications Scheduled Meds: [...] EKG. Patient transferred via air ambulance to [facility] on 07/29 for LHC and LOW to [...] EKG. Patient transferred via air ambulance to [facility] on 07/29 for LHC and LOW to [...] EKG. Was transferred via air ambulance to [facility] for further management and [facility] demo nstrated 100% occlusion. No significant RCA, LMCA, or LCX disease. LOW placed in LAD with some residual distal disease meriting placement of overlapping distal stent. TTE showed apical akinesis and inferior hypokinesis with EF 20%. RHC showed elevated filling pressures. Impella placed and P-level 6 at time of transfer to [facility]. CI initially 1.97, improved to 2.2 After impella. Received about 3 L of fluid during procedural course. Patient initially required norepinephrine, epinephrine, and vasopressin for hemodynamic support, which was weaned upon arrival to [facility] to norepinephrine 20 and levo 0.04 (epinephrine [...] performed by Brandan Mcgovern MD [facility] ENDOSCOPY Significant Family History: Family History Problem [...] mouth. Past Week nitroGLYcerin (NITROLINGUAL) 400 mcg/spray [place], Non-Aerosol 1 spray to anus for proctalgia [...] 3.5 guiding catheter and a 3.5 Fr [employer] [place] [address] 20 Mhz using Manual pullback. Imaging [...] atmospheres. A premounted 3.00 x 22 mm Whick [employer]man (LOW) was deployed with a maximum inflation [...] atmospheres. A premounted 3.00 x 08 mm Whick [place]man (LOW) was deployed with a maximum inflation [...] a limited study performed by a fellow business operations analyst to evaluate for cardiogenic shock with [...] Compared to the overnight study by the business operations analyst fellow the impella position is stable. [...] EKG. Patient transferred via air ambulance to [facility] on 07/29 for LHC and LOW to [...] PCP: Yoel Artis APRN PCP phone number: [phone] Date of Admission: 07/29/2024 ( Hospital Day 0 days ) Attending:Aubree Silverio MD ID: Korey Montoya is a 74 y.o. male w/ PMH of hypertension, HLD, and BPH who presents for chief concern of chest pain after being found to have ST elevations on EKG. Patient transferred via air ambulance to [facility] on 07/29 for LHC and LOW to LAD for 100% occlusion. HPI: Korey Montoya is a 74 y.o. male w/ PMH of hypertension, HLD, and BPH who presents for chief concern of chest pain after being found to have ST elevations on EKG. Patient transferred via air ambulance to [facility] on 07/29 for LHC and LOW to [...] EKG. Was transferred via air ambulance to [facility] for further management and LHC demonstrated 100% [...] performed by Brandan Mcgovern MD [facility] ENDOSCOPY Family History Family History Problem Relation [...] Blood Gas) No results for input(s): PHART, GXP3IUW, PO2ART, CVF1BIO, LACTATEVEN, VQB8UAK, PFRATIOART2 in the last 168 hours. VBG (Venous Blood Gas) Recent Labs 07/29/24 1401 PHVEN 7.30* PO2VEN 39 JHW1GSN 20.1* Mixed Venous Sat No results for input(s): T4BLFX2 in the last 168 hours. PA Catheter [...] Blood Gas) No results for input(s): PHART, SJM6ZMB, PO2ART, BLL5XIQ, LACTATEVEN, RPX6WIQ, PFRATIOART2 in the last 168 hours. VBG (Venous Blood Gas) Recent Labs 07/29/24 1401 PHVEN 7.30* PO2VEN 39 BOF8IJN 20.1* Mixed Venous Sat No results for input(s): C0VZPX9 in the last 168 hours. Microbiology: Microbiology [...] EKG. Patient transferred via air ambulance to [facility] on 07/29 for LHC. Found to have 100% occlusion of LAD for which he underwent LOW to LAD.Otherwise no other significant vessel disease. Fahad is currently hemodynamically tenuous but improving upon admission to [facility], requiring hemodynamic support with norepinephrine and vasopressin at time of admission along with mechanical support with Impella device. Reassuringly, he demonstrates decreasing pressor requirements since admission to [facility], with epinephrine completely weaned. He does demonstrate [...] Bernardo Amos MD Internal Medicine, PGY-3 Cardiology, [facility] 07/29/24 3:14 PM Cardiology Attending Note I [...] MD, FACP, FACC Section of Cardiovascular Medicine [facility] Chief Digital Media Officeretched circuit processor [facility] This patient meets or has met [...] to the planned procedure. Hand Hygiene: The carton forming machine operator did perform hand hygiene prior to [...] ease. Good wave form. Ivan Hernandez MD Frozen Food Department Manager Associated attestation - Rolando Yeh MD - [...] in an outpatient cardiac rehabilitation program at [facility] was discussed. Patient agrees to a [...] No Patient is insured through: Primary Insurance: [facility] MANAGED MEDICARE Payor: [facility] MANAGED MEDICARE / Plan: [facility] MANAGED MEDICARE COMPLETE / Product Type: [...] Date of Discharge: 08/04/2024 Gaby Wong RN, [phone] * Initial Assessments - Char Meza, OT - 08/03/2024 10:00 AM EST Occupational Therapy Evaluation Patient profile: Korey Montoya is a 74 y.o. male admitted on 07/29/2024 w/ PMH of hypertension, HLD, and BPH who presents for chief concern of chest pain after being found to have ST elevations onEKG. Patient transferred via air ambulance to [facility] on 07/29 for LHC and LOW to [facility] for 100% occlusion. Past Medical History: Diagnosis Date ADHD HLD (hyperlipidemia) HTN (hypertension) Tremor Past Surgical History: Procedure Laterality Date HAND SURGERY PRO COLONOSCOPY, REMV LESN, SNARE N/A 08/30/2023 COLONOSCOPY, POLYPECTOMY, REMOVAL LESION BY SNARE (WRVU 4.57) performed by Brandan Mcgovern MD [facility] ENDOSCOPY Social History: Patient lives with his . Home Setup: 2 NAOMI to a 1 level home. DME: none Baseline ADL/Mobility: Independent with ADLs and IADLs. Enjoys walking. able assist as needed. Precautions/Special Considerations: Full code. Risk for falls. Subjective: I have access to an [employer] weight gym. (Educated to wait for MD [...] evaluation only Total Minutes, Occupational Therapy: 14 ([id number] (evaluation)) 2017 OT Evaluation Code Rationale: Diagnosis [...] and measurable assessment of functional outcome. Pager: [phone] Char Meza OT 08/03/2024 Occupational Therapy Rehabilitation [...] (Interventions Implemented as Appropriate) Flowsheets (Taken 08/01/2024 1804) Outcome Summary: A+O, no pain. NSR. MAP [...] Procedure Note: Patient Name: Korey Montoya : [id number] MR#: [id number] Case Date: 07/31/2024 Thermal Engineer: Surgeons and Role: * Maldonado Luis MD - Primary * Quinten Charles PA - Physician Appointment Coordinator Preoperative diagnosis: shock, impella Postoperative diagnosis: * same * Procedure(s) performed: Impella removal form right CLOTHES SEPARATOR Access: Right CLOTHES SEPARATOR A time-out was conducted prior to the [...] Admitted From: Transfer from another hospital Location: [facility] Reason for Hospitalization: chest pain Past medical History: Past Medical History: Diagnosis Date ADHD HLD (hyperlipidemia) HTN (hypertension) Tremor Hospitalizations Within the Past 30 Days: no previous admission in last 30 days Current Decision-Making Capacity: Self If AD's have not been completed the following surrogate would be surrogate decision maker per [place] surrogate decision making law. (Only good for 180 days) Any patient receiving care in [place] must abide by [place] law. The hierarchy for surrogate decision making [...] (i) The agent with financial power of perforator operator oil well or a conservator appointed in accordance with [...] homeless or living in a custodial (including now)?: No In the past 12 months has the [employer] ([employer]) gas, oil, or water [employer] threatened to shut off services in your [...] it) Home Address confirmed as: Mailing Address: [address] [facility] [facility] [address] Physical Address: [address] [place], [place] Social & Family Supports: All names [...] points: Addiction likely Health/Prescription Coverage: Primary Insurance: [facility] [employer] MEDICARE Payor: [employer] MANAGED MEDICARE / Plan: [facility] MANAGED MEDICARE COMPLETE / Product Type: *No Product type* / Secondary Insurance: N/A ; Prescription Coverage: Yes Preferred Pharmacy: [address] [address] [place] Status: Patient is a : No Primary Care Provider confirmed: Alexia Mtz, COMMISSARY WORKER [phone] Patient/Caregiver Goals of Treatment: return home Potential [...] 07/29/2024 6:25 PM EST 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 CXR and EKG completed. [...] Procedure Note: Patient Name: Korey Montoya : [id number] MR#: [id number] Case Date: 07/29/2024 Thermal Engineer: Surgeons and Role: * Vahe Marvin MD - Primary * Susannah Watts PA - Physician Appointment Coordinator Preoperative diagnosis: STEMI Postoperative diagnosis: * STEMI, LAD Artery * * Cardiogenic Shock * Procedure(s) performed: [facility] Coronary angiogram Stent insertion coronary IVUS coronary Venous line insert [facility] [place] Colette Catheter Vascular closure device Ventricular assist [...] x 22 mm to 14 deonna JEISON Eastman with LIZ 3 flow. Residual distal disease at distal stent, overlapping distal stent was inserted with 3.0 x 8 mm JEISON Eastman. Systolic's in the 80's sustained. Patient re [...] AM EST Office Visit Cardiology at [address] [phone] Mushtaq Murphy, COMMISSARY WORKER Scheduled Orders Name Type Priority Associated Diagnoses [...] 0.04 x10(3)/mc L 08/04/2024 6:39 AM EST [facility] Blood VENOUS BLOOD SPECIMEN / Unknown Venipuncture / Unknown 08/04/2024 6:08 AM EST 08/04/2024 6:19 AM EST Bridgette Stauffer MD HEMATOLOGY ORDERABLE S Performing Organization Address City/[facility]/ZIP Co de Phone Number [facility] [place] [address] * Magnesium (08/04/2024 6:08 AM EST) Magnesium 0.85 0.69 - 1.07 mMol/L 08/04/2024 7:07 AM [facility] Blood VENOUS BLOOD SPECIMEN / Unknown Venipuncture / Unknown 08/04/2024 6:08 AM EST 08/04/2024 6:19 AM EST Bridgette Stauffer MD CHEMISTRY ORDERABLES Performing Organization Address City/[facility]/ZIP Co de Phone Number [facility] [place] [address] * Basic Metabolic Panel (08/04/2024 6:08 AM [...] - 31 mMol/L 08/04/2024 7:07 AM EST [facility] Anion Gap 8 5 - 15 mMol/L 08/04/2024 7:07 AM EST [facility] Calcium 8.5 8.5 - 10.5 mg/dL 08/04/2024 7:07 AM EST [facility] Est Glomerular Filtration Rate - Male 74 mL/min/1. 73 m?? 08/04/2024 7:07 AM EST [facility] Comment: This patient's estimated GFR [...] AM EST Bridgette Stauffer MD CHEMISTRY ORDERABLES [facility] [place] [address] * (ABNORMAL) CBC (with Diff) (08/03/2024 5:16 AM EST) White Blood Cell 7.85 4.00 - 9.50 x10(3)/mc L 08/03/2024 5:29 AM EST [facility] Red Blood Cell 4.43(L) 4.58 - 5.54 x10(6)/mc L 08/03/2024 5:29 AM EST [facility] Hemoglobin 11.8(L) 13.7 - 16.5 g/dL 08/03/2024 5:29 AM EST [facility] Hematocrit 35.9(L) 40.5 - 48.5 [...] EST Bridgette Stauffer MD HEMATOLOGY ORDERABLE S [facility] [place] [address] * Magnesium (08/03/2024 5:16 AM EST) Magnesium 0.89 0.69 - 1.07 mMol/L 08/03/2024 5:56 AM [facility] Blood VENOUS BLOOD SPECIMEN / Unknown Venipuncture / Unknown 08/03/2024 5:16 AM EST 08/03/2024 5:23 AM EST Bridgette Stauffer MD CHEMISTRY ORDERABLES [facility] [place] [address] * (ABNORMAL) Basic Metabolic Panel (08/03/2024 5:16 [...] Stauffer MD CHEMISTRY ORDERABLES Performing Organization Address [facility]/ZIP Co de Phone Number [facility] [place] [address] * POC, GLUCOSE (08/02/2024 7:47 AM EST) [facility] Glucometer, POC 89 65 - 199 mg/dL 08/02/2024 7:47 AM EST [facility] Comment:Supplemental ranges: <140 mg/dL before meals <180 mg/dL all other times of the day. Blood CAPILLARY BLOOD / Unknown 08/02/2024 7:47 AM EST 08/02/2024 7:47 AM EST Krystal Parker MD POINT OF CARE TEST O RDERABLES Performing Organization Address [facility] Co de Phone Number [facility] [place] [address] * (ABNORMAL) CBC (with Diff) (08/02/2024 4:20 AM EST) [facility] White Blood Cell 8.51 4.00 - 9.50 [...] 0.40 x10(3)/mc L 08/02/2024 4:50 AM EST [facility] Basophil % 0.4 % 08/02/2024 [...] Organization Address City/[facility]/ZIP Co de Phone Number [facility] [place] [address] * Magnesium (08/02/2024 4:20 AM EST) Magnesium 0.79 0.69 - 1.07 mMol/L 08/02/2024 5:06 AM [facility] Blood VENOUS BLOOD SPECIMEN / Unknown Venipuncture / Unknown 08/02/2024 4:20 AM EST 08/02/2024 4:37 AM EST Bridgette Stauffer MD CHEMISTRY ORDERABLES [facility] [place] [address] * (ABNORMAL) Basic Metabolic Panel (08/02/2024 4:20 [...] AM EST Bridgette Stauffer MD CHEMISTRY ORDERABLES [facility] [place] [address] * Potassium (08/01/2024 8:39 PM EST) Potassium 4.0 3.5 - 5.0 mMol/L 08/01/2024 9:21 PM EST [facility] Blood VENOUS BLOOD SPECIMEN / Unknown Venipuncture / Unknown 08/01/2024 8:39 PM EST 08/01/2024 8:51 PM EST Aubree Silverio MD CHEMISTRY ORDERABL ES Performing Organization Address City/[facility]/ZIP Co de Phone Number [facility] [place] [address] * POC, GLUCOSE (08/01/2024 8:35 PM EST) Glucometer, POC 112 65 - 199 mg/dL 08/01/2024 8:36 PM EST [facility] Comment:Supplemental ranges: <140 mg/dL before meals <180 mg/dL all other times of the day. Blood CAPILLARY BLOOD / Unknown 08/01/2024 8:35 PM EST 08/01/2024 8:36 PM EST Krystal Parker MD POINT OF CARE TEST O RDKAY Performing Organization Address [facility] Co de Phone Number [facility] [place] [address] * POC, GLUCOSE (08/01/2024 4:55 PM EST) Glucometer, POC 99 65 - 199 mg/dL 08/01/2024 4:56 PM EST [facility] Comment:Supplemental ranges: <140 mg/dL before meals <180 mg/dL all other times of the day. Blood CAPILLARY BLOOD / Unknown 08/01/2024 4:55 PM EST 08/01/2024 4:56 PM EST Krystal Parker MD POINT OF CARE TEST O RDKAY Performing Organization Address City/[facility]/ZIP Co de Phone Number [facility] [place] [address] * POC, GLUCOSE (08/01/2024 12:42 PM EST) Glucometer, POC 130 65 - 199 mg/dL 08/01/2024 12:43 PM EST [facility] Comment:Supplemental ranges: <140 mg/dL before meals <180 mg/dL all other times of the day. Blood CAPILLARY BLOOD / Unknown 08/01/2024 12:42 PM EST 08/01/2024 12:43 PM EST Krystal Parker MD POINT OF CARE TEST O RDERASHAY [facility] [place] [address] * (ABNORMAL) Cooximetry, POC (08/01/2024 10:45 AM [...] Organization Address City/[facility]/ZIP Co de Phone Number [facility] [place] [address] * Potassium (08/01/2024 8:20 AM EST) Pathologist [facility] Potassium 4.0 3.5 - 5.0 mMol/L 08/01/2024 10:17 AM EST [facility] Blood ARTERIAL BLOOD / Unknown Venipuncture / Unknown 08/01/2024 8:20 AM EST 08/01/2024 8:30 AM EST Aubree Silverio MD CHEMISTRY ORDERABL ES Performing Organization Address City/[facility]/ZIP Co de Phone Number [facility] [place] [address] * POC, GLUCOSE (08/01/2024 7:44 AM EST) [facility] Glucometer, POC 86 65 - 199 mg/dL 08/01/2024 7:44 AM EST [facility] Comment:Supplemental ranges: <140 mg/dL before meals <180 mg/dL all other times of the day. Blood CAPILLARY BLOOD / Unknown 08/01/2024 7:44 AM EST 08/01/2024 7:44 AM EST Krystal Parker MD POINT OF CARE TEST O RDERABLES Performing Organization Address City/[facility]/ZIP Co de Phone Number [facility] [place] [address] * (ABNORMAL) CBC (with Diff) (08/01/2024 4:18 AM EST) [facility] White Blood Cell 8.51 4.00 - 9.50 x10(3)/mc L 08/01/2024 4:53 AM EST [facility] Red Blood Cell 4.12(L) 4.58 - 5.54 x10(6)/mc L 08/01/2024 4:53 AM EST [facility] Hemoglobin 11.2(L) 13.7 - 16.5 g/dL 08/01/2024 4:53 AM EST [facility] Hematocrit 33.8(L) 40.5 - 48.5 [...] EST Bridgette Stauffer MD HEMATOLOGY ORDERABLE S [facility] [place] [address] * Magnesium (08/01/2024 4:18 AM EST) Magnesium 0.74 0.69 - 1.07 mMol/L 08/01/2024 5:00 AM [facility] Blood VENOUS BLOOD SPECIMEN / Unknown Venipuncture / Unknown 08/01/2024 4:18 AM EST 08/01/2024 4:29 AM EST Bridgette Stauffer MD CHEMISTRY ORDERABLES [facility] [place] [address] * (ABNORMAL) Basic Metabolic Panel (08/01/2024 4:18 [...] Stauffer MD CHEMISTRY ORDERABLES Performing Organization Address [facility] de Phone Number [facility] [place] [address] * POC, GLUCOSE (07/31/2024 8:41 PM EST) [facility] Signature Glucometer, POC 73 65 - 199 mg/dL 07/31/2024 8:41 PM EST [facility] Comment:Supplemental ranges: <140 mg/dL before meals <180 mg/dL all other times of the day. Blood CAPILLARY BLOOD / Unknown 07/31/2024 8:41 PM EST 07/31/2024 8:41 PM EST Krystal Parker MD POINT OF CARE TEST O RDERABLES Performing Organization Address [facility] de Phone Number [facility] [place] [address] * CARDIAC CATHETERIZATION (07/31/2024 5:53 PM EST) Anatomical Region Laterality Modality Other Narrative 08/01/2024 12:37 PM EST ?[facility] ? Cardiac Catheterization/Intervention Report ? Patient Name: Korey MontoyaToby ? Procedure Date: 07/31/2024 ? A #: [id number] ? Primary Physician: Maldonado Luis ? Case #: [id number] ? File Name: [id number] ? Catheterization Order Number: [id number] ? [facility] ? Final Report [place], [place] ? Patient Name: ? Korey P. Montoya ?ID#: [id number] ? : ?1950 ? Procedure Date: ? [...] ? Comments: ?Impella removed from the right CLOTHES SEPARATOR with deployment of Perclose and ?Angioseal. ??Good [...] Procedure Note Maldonado Luis MD - 08/01/2024 [facility] Cardiac Catheterization/Intervention Report Patient Name: Korey MontoyaToby Procedure Date: 07/31/2024 A #: [id number] Primary Physician: Maldonado Luis Case #: [id number] File Name: [id number] Catheterization Order Number: [id number] [facility] FinalReport [place], [place] Patient Name: Korey Montoya ID#:[id number] :1950 Procedure Date: July 31, 2024 Case [...] was designated as ASA Class IV. The [facility] clinical frailtyscale is 4: Vulnerable. [...] procedures. Comments: Impella removed from the right CLOTHES SEPARATOR with deployment of Perclose and Angioseal. Good [...] - 199 mg/dL 07/31/2024 11:04 AM EST [facility] Comment:Supplemental ranges: <140 mg/dL before meals <180 mg/dL all other times of the day. Blood CAPILLARY BLOOD / Unknown 07/31/2024 11:04 AM EST 07/31/2024 11:04 AM EST Krystal Parker MD POINT OF CARE TEST O RDERABLES Performing Organization Address City/State/[facility] Co de Phone Number [facility] [place] [address] * (ABNORMAL) Blood Gas, Arterial POC (07/31/2024 [...] - 199 mg/dL 07/31/2024 8:30 AM EST [facility] Comment:Glucose Concentratio n >=200 mg/dL plus symptoms is consistent with Diabetes Mellitus. Blood ARTERIAL BLOOD / Unknown 07/31/2024 8:29 AM EST 07/31/2024 8:30 AM EST Krystal Parker MD POINT OF CARE TEST O RDERABLES [facility] [place] [address] * POC, GLUCOSE (07/31/2024 7:47 AM EST) Glucometer, POC 82 65 - 199 mg/dL 07/31/2024 7:53 AM EST [facility] Comment:Supplemental ranges: <140 mg/dL before meals <180 mg/dL all other times of the day. Blood CAPILLARY BLOOD / Unknown 07/31/2024 7:47 AM EST 07/31/2024 7:53 AM EST Krystal Parker MD POINT OF CARE TEST O RDERABLES [facility] [place] [address] * (ABNORMAL) CBC (with Diff) (07/31/2024 1:08 AM EST) [facility] White Blood Cell 10.25(H) 4.00 - 9.50 [...] Gran % 0.2 % 1:28 AM EST [facility] Immature Gran Absolute <0.04 0.00 - 0.04 x10(3)/mc L 07/31/2024 1:28 AM [facility] Blood VENOUS BLOOD SPECIMEN / Unknown Venipuncture / Unknown 07/31/2024 1:08 AM EST 07/31/2024 1:18 AM EST Bridgette Stauffer MD HEMATOLOGY ORDERABLE S Performing Organization Address [facility] Co de Phone Number [facility] [place] [address] * Magnesium (07/31/2024 1:08 AM EST) Pathologist [facility] Magnesium 0.89 0.69 - 1.07 mMol/L 07/31/2024 1:46 AM [facility] Blood VENOUS BLOOD SPECIMEN / Unknown Venipuncture / Unknown 07/31/2024 1:08 AM EST 07/31/2024 1:18 AM EST Bridgette Stauffer MD CHEMISTRY ORDERABLES Performing Organization Address City/[facility] Co de Phone Number [facility] [place] [address] * (ABNORMAL) Basic Metabolic Panel (07/31/2024 1:08 [...] - 5.0 mMol/L 07/31/2024 1:46 AM EST [facility] Chloride 110(H) 98 - 107 mMol/L 07/31/2024 1:46 AM EST [facility] Carbon Dioxide 24 22 - [...] AM EST Bridgette Stauffer MD CHEMISTRY ORDERABLES [facility] [place] [address] * (ABNORMAL) Hepatic Function Panel (07/31/2024 1:08 AM EST) Albumin 3.1(L) 3.2 - 5.2 g/dL 07/31/2024 1:46 AM EST [facility] Aspartate Aminotransferase 192(H) <=39 unit/L 07/31/2024 1:46 AM EST [facility] Alanine Aminotransferase 59(H) 0 - 55 unit/L 07/31/2024 1:46 AM EST [facility] Alkaline Phosphatase 46 40 - [...] Organization Address City/[facility] Co de Phone Number [facility] [place] [address] * POC, GLUCOSE (07/30/2024 8:03 PM EST) Glucometer, POC 86 65 - 199 mg/dL 07/30/2024 8:03 PM EST [facility] Comment:Supplemental ranges: <140 mg/dL before meals <180 mg/dL all other times of the day. Blood CAPILLARY BLOOD / Unknown 07/30/2024 8:03 PM EST 07/30/2024 8:03 PM EST Krystal Parker MD POINT OF CARE TEST O RDERABLES Performing Organization Address City/[facility]/ZIP Co de Phone Number [facility] [place] [address] * Potassium (07/30/2024 8:03 PM EST) Potassium 3.8 3.5 - 5.0 mMol/L 07/30/2024 9:13 PM EST [facility] Blood VENOUS BLOOD SPECIMEN / Unknown Venipuncture / Unknown 07/30/2024 8:03 PM EST 07/30/2024 8:22 PM EST Aubree Silverio MD CHEMISTRY ORDERABL ES Performing Organization Address [facility]/ZIP Co de Phone Number [facility] [place] [address] * POC, GLUCOSE (07/30/2024 6:23 PM EST) Glucometer, POC 93 65 - 199 mg/dL 07/30/2024 6:24 PM EST [facility] Comment:Supplemental ranges: <140 mg/dL before meals <180 mg/dL all other times of the day. Blood CAPILLARY BLOOD / Unknown 07/30/2024 6:23 PM EST 07/30/2024 6:24 PM EST Krystal Parker MD POINT OF CARE TEST O JOSH Performing Organization Address [facility] Co de Phone Number [facility] [place] [address] * POC, GLUCOSE (07/30/2024 5:08 PM EST) Glucometer, POC 78 65 - 199 mg/dL 07/30/2024 5:08 PM EST [facility] Comment:Supplemental ranges: <140 mg/dL before meals <180 mg/dL all other times of the day. Blood CAPILLARY BLOOD / Unknown 07/30/2024 5:08 PM EST 07/30/2024 5:08 PM EST Krystal Parker MD POINT OF CARE TEST O JOSH Performing Organization Address [facility] Co de Phone Number [facility] [place] [address] * (ABNORMAL) Phosphorus (07/30/2024 3:08 PM EST) Phosphorus 2.1(L) 2.5 - 4.5 mg/dL 07/30/2024 3:58 PM EST [facility] Blood VENOUS BLOOD SPECIMEN / Unknown Venipuncture / Unknown 07/30/2024 3:08 PM EST 07/30/2024 3:12 PM EST Aubree Silverio MD CHEMISTRY ORDERABL ES Performing Organization Address [facility]/ZIP Co de Phone Number [facility] [place] [address] * Magnesium (07/30/2024 3:08 PM EST) Magnesium 0.90 0.69 - 1.07 mMol/L 07/30/2024 3:58 PM EST [facility] Blood VENOUS BLOOD SPECIMEN / Unknown Venipuncture / Unknown 07/30/2024 3:08 PM EST 07/30/2024 3:12 PM EST Aubree Silverio MD CHEMISTRY ORDERABL ES Performing Organization Address City/[facility]/ZIP Co de Phone Number [facility] [place] [address] * (ABNORMAL) Basic Metabolic Panel (07/30/2024 3:08 PM EST) Glucose 105 65 - 199 mg/dL 07/30/2024 4:17 PM [facility] Comment:Glucose Concentratio n >=200 mg/dL plus symptoms is consistent with Diabetes Mellitus. Blood Urea Nitrogen 13 10 - 20 mg/dL 07/30/2024 4:17 PM EST [facility] Creatinine 1.01 0.80 - 1.50 [...] - 31 mMol/L 07/30/2024 4:17 PM EST [facility] Anion Gap 11 5 - 15 mMol/L 07/30/2024 4:17 PM EST [facility] Calcium 7.9(L) 8.5 - 10.5 mg/dL 07/30/2024 4:17 PM EST [facility] Est Glomerular Filtration Rate - Male 79 mL/min/1. 73 m?? 07/30/2024 4:17 PM EST [facility] Comment: This patient's estimated GFR [...] EST Aubree Silverio MD CHEMISTRY ORDERABL ES [facility] [place] [address] * ECHO LMTD W CONTRAST W LMTD SPEC DOPP COLOR DOPP (07/30/2024 11:42 AM EST) Anatomical Region Laterality Modality Cardiac Other 07/30/2024 10:2 2 AM EST Narrative 07/30/2024 12:34 PM EST [address] [place] [address] ? Echocardiogram Report Name: KOREY MONTOYA ? Study Date: 07/30/2024 10:22 AMBP: 124/66 mmHg : 1950 ? Height: 168 cm ? Account: [id number] Age: 74 yrs ? Weight: 65 kg Gender: Male ?BSA: 1.7 m2 Ordering Physician: Aubree Silverio MD Referring Physician: CHAPARRO FERRERA Performed By: OMERO Millan Reason For Study: ST elevation myocardial infarction involving left anterior descending (LAD) coronary artery Interpreting Fellow: Ivan Hernandez. Exam Location: [facility]. Interpretation Summary Left ventricle is severely dilated. [...] Compared to the overnight study by the business operations analyst fellow the impella position is stable. 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 Procedure Limited - 61984. Image enhancement Definity was used for both [...] Procedure Note Kathleen Banda MD - 07/30/[address] [place] [id number] Echocardiogram Report Name: KOREY MONTOYA Kyrie Study Date: 410:22 AMBP: 124/66 mmHg : 1950 Height: 168 cm Account: [id number] Age: 74 yrs Weight: 65 kg Gender: Male BSA: 1.7 m2 Ordering Physician: Aubree Silverio MD Referring Physician: CHAPARRO FERRERA Performed By: OMERO Millan Reason For Study: ST elevation myocardial infarction involving leftanterior descending (LAD) coronary artery Interpreting Fellow: Ivan Hernandez. Exam Location: [facility]. Interpretation Summary Left ventricle is severely dilated. [...] Compared to the overnight study by the business operations analyst fellow the impella positionis stable. The global left ventricular systolic function has improvedpredominantly via recruitment outside the LAD territory which remains akinetic. Procedure Limited - 61222. Image enhancement Definity was used for both [...] City/State/[facility] Co de Phone Number [facility] [place] [address] * (ABNORMAL) Blood Gas, Arterial POC (07/30/2024 [...] Silverio MD POINT OF CARE TEST ORDERABLES [facility] [place] [address] * (ABNORMAL) Troponin - Single (07/30/2024 8:09 AM EST) Troponin-T, High Sensitivity 8,651(H) <=22 ng/L 07/30/2024 9:06 AM EST [facility] Comment: This patient's troponin T [...] troponin value can be found in the [facility] [facility] Test Catalog Troponin - https://[email or web address]testcatalog.org/catalogs/565/files/69369 Reference: Fourth [place] Definition of Myocardial Infarction. Journal of the [place] [employer] 2018;72:6205-4296 Blood VENOUS BLOOD SPECIMEN / Unknown Venipuncture / Unknown 07/30/2024 8:09 AM EST 07/30/2024 8:26 AM EST Aubree Silverio MD CHEMISTRY ORDERABL ES [facility] [place] [address] * POC, GLUCOSE (07/30/2024 7:40 AM EST) Shaheen Jc Glucometer, POC 111 65 - 199 mg/dL 07/30/2024 7:40 AM EST [facility] Comment:Supplemental ranges: <140 mg/dL before meals <180 mg/dL all other times of the day. Blood CAPILLARY BLOOD / Unknown 07/30/2024 7:40 AM EST 07/30/2024 7:40 AM EST Aubree Silverio MD POINT OF CARE TEST ORDERABLES [facility] [place] [address] * (ABNORMAL) CBC (with Diff) (07/30/2024 2:11 [...] EST Bridgette Stauffer MD HEMATOLOGY ORDERABLE S [facility] [place] [address] * Magnesium (07/30/2024 2:11 AM EST) Magnesium 1.01 0.69 - 1.07 mMol/L 07/30/2024 2:51 AM [facility] Blood VENOUS BLOOD SPECIMEN / Unknown Venipuncture / Unknown 07/30/2024 2:11 AM EST 07/30/2024 2:22 AM EST Bridgette Stauffer MD CHEMISTRY ORDERABLES Performing Organization Address City/[facility]/ZIP Co de Phone Number [facility] [place] [address] * (ABNORMAL) Basic Metabolic Panel (07/30/2024 2:11 [...] - 15 mMol/L 07/30/2024 2:51 AM EST [facility] Calcium 7.7(L) 8.5 - 10.5 mg/dL 07/30/2024 2:51 AM EST [facility] Est Glomerular Filtration Rate - Male 91 mL/min/1. 73 m?? 07/30/2024 2:51 AM EST [facility] Comment: This patient's estimated GFR [...] AM EST Bridgette Stauffer MD CHEMISTRY ORDERABLES [facility] [place] [address] * (ABNORMAL) Cooximetry, POC (07/30/2024 1:00 AM EST) pO2, Coox 28 mmHg 07/30/2024 1:03 AM EST [facility] Hemoglobin, Coox 12.7(L) 13.7 - 16.5 g/dL 07/30/2024 1:03 AM EST [facility] Oxyhemoglobin, Coox 54.9 % 07/30/2024 [...] City/State/[facility] Co de Phone Number [facility] [place] [address] * (ABNORMAL) Blood Gas, Arterial POC (07/30/2024 [...] Silverio MD POINT OF CARE TEST ORDERABLES [facility] [place] [address] * (ABNORMAL) Troponin - Single (07/29/2024 10:31 [...] troponin value can be found in the [facility] Laboratory Test Catalog Troponin - https://[email or web address].org/catalogs/565/files/06096 Reference: Fourth [place] Definition of Myocardial Infarction. Journal of the [place] [employer] 2018;72:5950-2683 Blood VENOUS BLOOD SPECIMEN / Unknown Venipuncture / Unknown 07/29/2024 10:31 PM EST 07/29/2024 10:36 PM EST Yrn Ward MD CHEMISTRY ORDERABL ES Performing Organization Address City/[facility]/ZIP Co de Phone Number [facility] [place] [address] * Potassium (07/29/2024 8:11 PM EST) Pathologist [facility] Potassium 4.1 3.5 - 5.0 mMol/L 07/29/2024 8:52 PM EST [facility] Blood VENOUS BLOOD SPECIMEN / Unknown Venipuncture / Unknown 07/29/2024 8:11 PM EST 07/29/2024 8:16 PM EST Aubree Silverio MD CHEMISTRY ORDERABL ES [facility] [place] [address] * (ABNORMAL) Troponin - Single (07/29/2024 8:11 PM EST) Troponin-T, High Sensitivity >10,000(H ) <=22 ng/L 07/29/2024 8:52 PM EST [facility] Comment: This patient's troponin T [...] troponin value can be found in the [facility] Laboratory Test Catalog Troponin - https://[facility].testcatalog.org/catalogs/565/files/02644 Reference: Fourth [place] Definition of Myocardial Infarction. Journal of the [place] [employer]iology 2018;72:5421-1733 Blood VENOUS BLOOD SPECIMEN / Unknown Venipuncture / Unknown 07/29/2024 8:11 PM EST 07/29/2024 8:16 PM EST Aubree Silverio MD CHEMISTRY ORDERABL ES Performing Organization Address City/State/[facility] Co de Phone Number [facility] [place] [address] * (ABNORMAL) Phosphorus (07/29/2024 8:11 PM EST) Phosphorus 2.1(L) 2.5 - 4.5 mg/dL 07/29/2024 8:52 PM EST [facility] Blood VENOUS BLOOD SPECIMEN / Unknown Venipuncture / Unknown 07/29/2024 8:11 PM EST 07/29/2024 8:16 PM EST Aubree Silverio MD CHEMISTRY ORDERABL ES Performing Organization Address City/State/[facility] Co de Phone Number [facility] [place] [address] * POC, GLUCOSE (07/29/2024 8:09 PM EST) Glucometer, POC 142 65 - 199 mg/dL 07/29/2024 8:09 PM EST [facility] Comment:Supplemental ranges: <140 mg/dL before meals <180 mg/dL all other times of the day. Blood CAPILLARY BLOOD / Unknown 07/29/2024 8:09 PM EST 07/29/2024 8:09 PM EST Aubree Silverio MD POINT OF CARE TEST ORDERABLES Performing Organization Address [facility] Co de Phone Number [facility] [place] [address] * ABORH RECHECK (07/29/2024 6:43 PM EST) ABORH Recheck AB POSITIVE 07/29/2024 10:13 PM EST [facility] Blood VENOUS BLOOD SPECIMEN / Unknown Venipuncture / Unknown 07/29/2024 6:43 PM EST 07/29/2024 7:15 PM EST Aubree Silverio MD BLOOD BANK LAB ORD ERABLES Performing Organization Address [facility] Co de Phone Number [facility] [place] [address] * POC, GLUCOSE (07/29/2024 5:57 PM EST) Glucometer, POC 166 65 - 199 mg/dL 07/29/2024 5:57 PM EST [facility] Comment:Supplemental ranges: <140 mg/dL before meals <180 mg/dL all other times of the day. Blood CAPILLARY BLOOD / Unknown 07/29/2024 5:57 PM EST 07/29/2024 5:57 PM EST Aubree Silverio MD POINT OF CARE TEST ORDERABLES [facility] [place] [address] * Type and screen ([facility]/JONG/MAGALIE) (07/29/2024 5:56 PM EST) [facility] ABORH Type AB POSITIVE 07/29/2024 9:44 PM EST [facility] PATIENT HISTORY Not Found 07/29/2024 9:44 PM EST [facility] Expires at [id number] on: 08/01/2024 07/29/2024 9:44 PM EST [facility] ANTIBODY SCREEN AUTOMATED Negative 07/29/2024 9:44 PM EST [facility] T&S only valid at [facility] 07/29/2024 9:44 PM EST [facility] Blood VENOUS BLOOD SPECIMEN / Unknown Venipuncture / Unknown 07/29/2024 5:56 PM EST 07/29/2024 6:07 PM EST Narrative [facility] - 07/29/2024 9:44 PM EST This Type and Screen result is only valid at the [facility] Aubree Silverio MD BLOOD BANK LAB ORD ERABLES Performing Organization Address City/[facility]/ZIP Co de Phone Number [facility] [place] [address] * (ABNORMAL) Troponin - Single (07/29/2024 4:52 PM EST) [facility] Troponin-T, High Sensitivity >10,000(H ) <=22 ng/L 07/29/2024 5:25 PM EST [facility] Comment: This patient's troponin T [...] troponin value can be found in the [facility] Laboratory Test Catalog Troponin - https://[facility].testcatalog.org/catalogs/565/files/95119 Reference: Fourth [place] Definition of Myocardial Infarction. Journal of the [place] [employer]iology 2018;72:7993-5304 Blood VENOUS BLOOD SPECIMEN / Unknown Venipuncture / Unknown 07/29/2024 4:52 PM EST 07/29/2024 4:57 PM EST Aubree Silverio MD CHEMISTRY ORDERABL ES Performing Organization Address [facility]/ZIP Co de Phone Number [facility] [place] [address] * EKG 12 Lead (07/29/2024 4:21 PM EST) Ventricular rate 72 BPM MUSE SYSTEM Atrial Rate 72 BPM MUSE SYSTEM P-R Interval 168 ms MUSE SYSTEM QRS Duration 82 ms MUSE SYSTEM Q-T Interval 392 ms MUSE SYSTEM QTC Calculated (Bezet) 429 ms MUSE SYSTEM Calculated P [place] 71 degrees MUSE SYSTEM Calculated R [place] 77 degrees MUSE SYSTEM Calculated T [place] 28 degrees MUSE SYSTEM INTERPRETATION Sinus rhythm [...] Organization Address City/[facility]/ZIP Co de Phone Number MUSE SYSTEM * [...] Organization Address City/[facility]/ZIP Co de Phone Number [facility] [place] [address] * POC, GLUCOSE (07/29/2024 4:19 PM EST) Glucometer, POC 185 65 - 199 mg/dL 07/29/2024 4:19 PM [facility] Comment:Supplemental ranges: <140 mg/dL before meals <180 mg/dL all other times of the day. Blood CAPILLARY BLOOD / Unknown 07/29/2024 4:19 PM EST 07/29/2024 4:19 PM EST Aubree Silverio MD POINT OF CARE TEST ORDERABLES [facility] [place] [address] * Blood culture (07/29/2024 4:08 PM EST) Blood Culture No growth at 120 hours 08/03/2024 5:01 PM EST [facility] Blood VENOUS BLOOD SPECIMEN / Unknown Venipuncture / Unknown 07/29/2024 4:08 PM EST 07/29/2024 4:15 PM EST Aubree Silverio MD MICROBIOLOGY - BLO OD ORDERABLES Performing Organization Address [facility] Co de Phone Number [facility] [place] [address] * Blood culture (07/29/2024 4:08 PM EST) Blood Culture No growth at 120 hours 08/03/2024 5:01 PM EST [facility] Blood VENOUS BLOOD SPECIMEN / Unknown Venipuncture / Unknown 07/29/2024 4:08 PM EST 07/29/2024 4:26 PM EST Aubree Silverio MD MICROBIOLOGY - BLO OD ORDERABLES Performing Organization Address [facility] de Phone Number [facility] [place] [address] * XR Chest One View (07/29/2024 2:30 PM EST) WORKSTATION ID [id number] DH RAD Anatomical Region Laterality Modality Chest [...] have questions please contact the health care management coordinator that requested your imaging first. ? Electronically signed by: Chris Candelaria MD, [facility] ([phone]), at 07/29/2024 3:21 PM Narrative 07/29/2024 3:21 [...] who have questions please contactthe health care management coordinator that requested your imaging first. Electronically signed by: Chris Candelaria MD, [facility]([phone]), at 07/29/2024 3:21 PM Vahe Marvin MD IMG DX ORDERABLES * (ABNORMAL) APTT (07/29/2024 2:03 PM EST) Partial Thromboplastin Time >160(HHH) 25 - 37 sec 07/29/2024 2:56 PM EST [facility] Blood VENOUS BLOOD SPECIMEN / Unknown Venipuncture / Unknown 07/29/2024 2:03 PM EST 07/29/2024 2:13 PM EST Vahe Marvin MD HEMATOLOGY ORDERABLE S Performing Organization Address City/[facility]/ZIP Co de Phone Number [facility] [place] [address] * (ABNORMAL) Prothrombin Time (07/29/2024 2:03 PM EST) Prothrombin Time 14.2(H) 9.4 - 12.5 sec 07/29/2024 2:56 PM EST [facility] International Normalization Ratio 1.3 <=4.9 07/29/2024 2:56 PM EST [facility] Comment: An INR < 2.0 [...] PM EST 07/29/2024 2:13 PM EST Vahe Mavrin MD HEMATOLOGY ORDERABLE S Performing Organization Address [facility] Co de Phone Number [facility] [place] [address] * CRP, acute inflammation (07/29/2024 2:03 PM EST) C-Reactive Protein <3.0 <=4.9 mg/L 07/29/2024 2:52 PM EST [facility] Blood VENOUS BLOOD SPECIMEN / Unknown Venipuncture / Unknown 07/29/2024 2:03 PM EST 07/29/2024 2:14 PM EST Vahe Marvin MD CHEMISTRY ORDERABLES Performing Organization Address City/[facility]/ZIP Co de Phone Number [facility] [place] [address] * Lipid Panel (Reflex Direct LDL) (07/29/2024 [...] 2:03 PM EST 07/29/2024 2:14 PM EST [facility] - 07/29/2024 2:52 PM [...] artery disease) Vahe Marvin MD CHEMISTRY ORDERABLES [facility] [place] [address] * TSH [employer] (07/29/2024 2:03 PM EST) Thyroid Stimulating Hormone 0.70 0.27 - 4.20 mcIU/mL 07/29/2024 2:52 PM EST [facility] Blood VENOUS BLOOD SPECIMEN / Unknown Venipuncture / Unknown 07/29/2024 2:03 PM EST 07/29/2024 2:14 PM EST Vahe Marvin MD CHEMISTRY ORDERABLES [facility] [place] [address] * Hemoglobin A1c (07/29/2024 2:03 PM EST) Pathologist [facility] Hemoglobin A1c 5.3 4.3 - 5.6 % 07/29/2024 2:41 PM EST [facility] Comment: Per ADA guidelines, without [...] red blood cell turnover may not be rental representative of glycemic control. Reference Interval: 4.3 - 5.6% 5.7 - 6.4%: Consistent with prediabetes >=6.5%: Consistent with diagnosis of diabetes mellitus Estimated Average Glucose 07/29/2024 2:41 PM EST [facility] Comment:Estimated Average Gl ucose not appropriate for patients over 70 years of age. Blood VENOUS BLOOD SPECIMEN / Unknown Venipuncture / Unknown 07/29/2024 2:03 PM EST 07/29/2024 2:14 PM EST [facility] - 07/29/2024 2:41 PM EST Estimated average glucose (eAG) is calculated from the equation described in: Quinten ALVES, Rikki J, Reno R, et al. ??Translating the A1C assay into estimated average glucose values. ??Diabetes Care 2008:31(8):9011-0694. Additional resources are available on the ADA website (diabetes.org). Vahe Marvin MD CHEMISTRY ORDERABLES [facility] [place] [address] * (ABNORMAL) CBC (with Diff) (07/29/2024 2:03 PM EST) White Blood Cell 19.50(H) 4.00 - 9.50 x10(3)/mc L 07/29/2024 2:18 PM EST [facility] Red Blood Cell 4.81 4.58 - 5.54 x10(6)/mc L 07/29/2024 2:18 PM [facility] Hemoglobin 13.1(L) 13.7 - 16.5 g/dL 07/29/2024 2:18 PM EST [facility] Hematocrit 40.1(L) 40.5 - 48.5 % 07/29/2024 2:18 PM EST [facility] Mean Cell Volume 83.4 82.9 - 93.1 fL 07/29/2024 2:18 PM EST [facility] Mean Cell Hemoglobin 27.2(L) 27.5 - 32.1 pg 07/29/2024 2:18 PM [facility] Mean Cell Hemoglobin Concentration 32.7 32.0 - 35.7 g/dL 07/29/2024 2:18 PM EST [facility] Platelet 236 145 - 357 x10(3)/mc L 07/29/2024 2:18 PM [facility] Mean Platelet Volume 10.6 7.6 - 12.9 fL 07/29/2024 2:18 PM EST [facility] RDW Standard Deviation 43.7 36.0 [...] EST Vahe Marvin MD HEMATOLOGY ORDERABLE S [facility] [place] [address] * Phosphorus (07/29/2024 2:03 PM EST) Phosphorus 2.5 2.5 - 4.5 mg/dL 07/29/2024 2:52 PM EST [facility] Blood VENOUS BLOOD SPECIMEN / Unknown Venipuncture / Unknown 07/29/2024 2:03 PM EST 07/29/2024 2:14 PM EST Vahe Marvin MD CHEMISTRY ORDERABLES Performing Organization Address City/[facility]/ZIP Co de Phone Number [facility] [place] [address] * Magnesium (07/29/2024 2:03 PM EST) Pathologist [facility] Magnesium 0.70 0.69 - 1.07 mMol/L 07/29/2024 2:52 PM EST [facility] Blood VENOUS BLOOD SPECIMEN / Unknown Venipuncture / Unknown 07/29/2024 2:03 PM EST 07/29/2024 2:14 PM EST Vahe Marvin MD CHEMISTRY ORDERABLES [facility] [place] [address] * (ABNORMAL) Comprehensive metabolic panel (07/29/2024 2:03 PM EST) Glucose 243(H) 65 - 199 mg/dL 07/29/2024 3:11 PM EST [facility] Comment:Glucose Concentratio n >=200 mg/dL plus symptoms is consistent with Diabetes Mellitus. Blood Urea Nitrogen 13 10 - 20 mg/dL 07/29/2024 3:11 PM EST [facility] Creatinine 0.88 0.80 - 1.50 [...] PM EST Vahe Marvin MD CHEMISTRY ORDERABLES [facility] [place] [address] * (ABNORMAL) Troponin - Single (07/29/2024 2:03 PM EST) Pathologist [facility] Troponin-T, High Sensitivity >10,000(H ) <=22 ng/L 07/29/2024 2:52 PM EST [facility] Comment: This patient's troponin T [...] troponin value can be found in the [facility] Laboratory Test Catalog Troponin - [email or web address].org/catalogs/565/files/26890 Reference: Fourth [place] Definition of Myocardial Infarction. Journal of the [place] [employer] 2018;72:1338-9801 Blood VENOUS BLOOD SPECIMEN / Unknown Venipuncture / Unknown 07/29/2024 2:03 PM EST 07/29/2024 2:14 PM EST Vahe Marvin MD CHEMISTRY ORDERABLES [facility] [place] [address] * (ABNORMAL) Blood Gas, Venous POC (07/29/2024 2:01 PM EST) pH, Venous 7.30(L) 7.32 - 7.42 07/29/2024 2:02 PM EST [facility] PCO2, Venous 42 38 - [...] - 107 mmol/L 07/29/2024 2:02 PM EST [facility] Glucose, Venous 229(H) 65 - 199 mg/dL 07/29/2024 2:02 PM EST [facility] Comment:Glucose Concentratio n >=200 mg/dL plus symptoms is consistent with Diabetes Mellitus. Lactate, Venous 3.1(H) 0.5 - 2.2 mmol/L 07/29/2024 2:02 PM EST [facility] Ionized Calcium, Venous 1.11(L) 1.15 - 1.33 mmol/L 07/29/2024 2:02 PM EST [facility] Blood VENOUS BLOOD SPECIMEN / Unknown 07/29/2024 2:01 PM EST 07/29/2024 2:02 PM EST Vahe Marvin MD POINT OF CARE TEST O RDERABLES Performing Organization Address City/State/[facility] Co de Phone Number [facility] [place] [address] * CARDIAC CATHETERIZATION (07/29/2024 1:20 PM EST) Anatomical Region Laterality Modality Other Narrative 07/29/2024 2:02 PM EST ?[facility] ? Cardiac Catheterization/Intervention Report ? Patient Name: Korey Montoya Driss ? Procedure Date: 07/29/2024 ? A #: [id number] ? Primary Physician: Vahe Marvin ? Case #: [id number] ? File Name: [id number] ? Catheterization Order Number: [id number] ? [facility] ? Final Report [place], [place] ? Patient Name: ? Korey P. Montoya ?ID#: ?[id number] ? : ?1950 ? Procedure Date: ? [...] procedure was Emergent. The indication for ?the clam bed laborer visit is ACS less than or [...] 3.5 guiding catheter and a 3.5 Fr [employer] [place] [address] ??20 Mhz using ?Manual pullback. ??Imaging [...] A premounted 3.00 x 22 mm Jeison Eastman (LOW) was deployed ? with a maximum [...] atmospheres. ??A premounted 3.00 x 08 mm Whick Eastman (LOW) ? was deployed with a maximum [...] dose administered prior to arrival in the clam bed laborer. ?Recommended anti-platelet/anti-thrombotic regimen: ?Start aspirin 81 mg daily now and continue for 12 months then stop. ?Start clopidogrel 75 mg daily now and continue for indefinitely. ?These recommendations are made at the time of the intervention. Patient ?and provider preferences or a changing clinical situation may require ?modification of this regimen. Consult [facility] Interventional Cardiology for ?questions. ?The 1 year [...] ?to start weaning his inotropes/vasopressors. A [place] Colette catheter was ?placed demonstrating improvement in his hemodynamics and the impella site ?was perclosed and hemostatic gauze was applied with excellent result. ?WIll transfer to the [facility] for further management. ?The attending physician was present for the entire procedure. ?Dr. Vahe Marvin M.D. was present during the moderate sedation ?intraservice time as documented by the sedation nurse. ??Case time = 01:26. ?Dr. Vahe Marvin M.D. performed the coronary angiography, left heart ?catheterization, IVUS # coronary, stent insertion-coronary, oximetry, ABG, ?transthoracic echo , ventricular assist device insertion, right heart ?catheterization, [place] (flow directed cath) insertion, access site ?angiography, vascular ultrasound, venous line / sheath insert and vascular ?closure device. ? Vahe Marvin M.D. ? Electronically Signed by: Vahe Marvin M.D. ? Report Finalized: 07/29/2024 ??13:55 ? Report Last Ammended: 07/30/2024 ??10:15 ? Procedure Note Vahe Marvin MD - 07/30/2024 [facility] Cardiac Catheterization/Intervention Report Patient Name: Korey Montoya Procedure Date: 07/29/2024 A #: [id number] Primary Physician: Vahe Marvin Case #: [id number] File Name: [id number] Catheterization Order Number: [id number] [facility] FinalReport [place], [place] Patient Name: Korey Montoya ID#:[id number] :1950 Procedure Date: July 29, 2024 Case [...] diagnostic procedure was Emergent. Theindication for the clam bed laborer visit is ACS less than or [...] 3.5 guiding catheter and a 3.5 Fr [employer] [address] 20 Mhzusing Manual pullback. Imaging was [...] The priority for the procedure was Emergent.The [facility] indication for the procedure was STEMI-Immediate PCI [...] The lesion was predilated with a 2.00mm [id number] MM balloon with a maximum inflation pressure of 12atmospheres. A premounted 3.00 x 22 mm Whick Eastman (LOW) wasdeployed with a maximum inflation pressure [...] atmospheres. A premounted 3.00 x 08 mm Whick Eastman(LOW) was deployed with a maximum inflation pressure [...] dose administered prior to arrival in the clam bed laborer. Recommended anti-platelet/anti-thrombotic regimen: Start aspirin 81 mg daily now and continue for 12 months then stop. Start clopidogrel 75 mg daily now and continue for indefinitely. These recommendations are made at the time of the intervention.Patient and provider preferences or a changing clinical situation mayrequire modification of this regimen. Consult [facility] Interventional Cardiologyfor questions. The 1 year bleeding [...] to start weaning his inotropes/vasopressors. A [place] Colette catheterwas placed demonstrating improvement in his [...] assist device insertion, right heart catheterization, [place] (flow directed cath) insertion, access site angiography, vascular ultrasound, venous line / sheath insert andvascular closure device. Vahe Marvin M.D. Electronically Signed by: Vahe Marvin M.D. Report Finalized: 07/29/2024 13:55 Report Last Ammended: 07/30/2024 10:15 Vahe Marvin MD CARDIAC CATH ORDERAB LES * (ABNORMAL) BLOOD GAS, POC (07/29/2024 12:46 PM EST) Sodium, POC 139 135 - 145 mmol/L 07/30/2024 7:30 AM EST [facility] Potassium, POC 3.4(L) 3.5 - [...] MD POINT OF CARE TEST O RDERABLES [facility] [place] [address] * (ABNORMAL) BLOOD GAS, POC (07/29/2024 12:12 [...] MD POINT OF CARE TEST O RDERABLES [facility] [place] [address] documented in this encounter Visit Diagnoses Not [...] PRN, Starting on 07/31/24 at 1711, Until Rena 08/02/24 at 1006, Intra-Operative (Intra-Procedure), Routine Given [...] Routine documented in this encounter Care Teams Sales Property Manager Relationship Specialty Start Date End Date Alexia Mtz, COMMISSARY WORKER [address] [place] [address] PCP - General Family Medicine 07/30/24 documented as of this encounter
--- OUTSIDE RECORDS SUMMARY | 2024-09-14 10:19 | XMS_ITS | Encounter Summary ---
[place] [address] Care Team Providers Care Car Cleaner Name Role Phone Alexia Mtz SALES DRIVER Primary Care Provider [phone] Reason for Visit * Auth/Cert (Routine) Specialty Diagnoses / Procedures Referred By Theodore t Referred To Contact Diagnoses STEMI (ST elevation myocardial infarction) STEMI Procedures ER Vahe Lopez MD [facility] [place] [address] [facility] Referral ID Status Reason Start Date Expiration Date Visits Re quested Visits Authorized [id number] 1 1 Encounter Details Date Type Department Care Team (Late st Contact Info) Description 07/31/2024 4:45 PM EST Anesthesia [place] [address] Venkatesh Mauricio MD [facility] [place] [address] Anesthesia Record Procedure Summary Procedure Name Responsible [...] Right; femoral vein; hemodynamic monitoring; Placed in mini lab operator; 08/01/24; 1420 07/29/24 1300 by Silvia Wan RN 08/01/24 1420 by Marivel English RN PIV 07/29/24; 1300; ljbw-mol-iwrsvy catheter system; 18 gauge; basilic vein (medial [...] in a longterm (including now)? No 07/30/2024 IPV Inpatient Questions [...] AM EST Office Visit Cardiology at [address] [address] Mushtaq Murphy APRN documented as of this encounter Visit Diagnoses Not on filedocumented in this encounter Care Teams Car Cleaner Relationship Specialty Start Date End Date Alexia Mtz, [address] [place] [address] PCP - General Family Medicine 07/30/24 documented as of this encounter
--- OUTSIDE RECORDS SUMMARY | 2024-09-14 10:19 | XMS_ITS | Encounter Summary ---
Author Organization [facility] Address [facility] [place] [address] Care Team Providers Care Copier Repair Technician Name Role Phone Yoel Artis Ute ALCALA Primary Care Provider [phone] Reason for Visit * Auth/Cert (Routine) Specialty Diagnoses / Procedures Referred By Theodore t Referred To Contact Diagnoses AIR[place] Procedures [place] [employer] [place] [employer] [facility] Referral ID Status Reason Start Date Expiration Date Visits Re quested Visits Authorized [id number] 1 1 Encounter Details Date Type Department Care Team (Latest Contact Info) Description 07/29/2024 6:32 PM EST - 07/29/2024 11:59 PM EST Hospital Encounter [facility] at [address] [address] Arvin Becerra MD [facility] [place] [address] Discharge Disposition: Home Social History Tobacco Use Types Packs/Day Years Used Date Smoking Tobacco: Former Cigarettes Smokeless Tobacco: Never Alcohol Use Standard Drinks/Week Comments Not Currently 0 (1 standard drink = 0.6 oz pur e alcohol) [facility] Utilities Answer Date Recorded In [...] any time in the past [address] [place], were you homeless or living [...] evening. 04/17/2023 08/04/2024 nitroGLYcerin (NITROLINGUAL) 400 mcg/spray [facility], Non-AerosolIndications: Proctalgia fugax,Fecal smearing,Constipation, unspecified constipation type 1 spray to anus for proctalgia fugax as needed, not to exceed once daily 12 g 06/01/2023 08/04/2024 documented as of this encounter Plan of Treatment Upcoming Encounters Date Type Department Care Team (Late st Contact Info) Description 10/01/2024 10:00 AM EST Office Visit Cardiology at [address] [phone] Mushtaq Murphy APRN documented as of this encounter Visit Diagnoses Not on filedocumented in this encounter Care Teams Copier Repair Technician Relationship Specialty Start Date End Date Yoel Artis APRN [address] [place] [id number] PCP - General Internal Medicine 11/18/22 07/29/24 documented as of this encounter
--- OUTSIDE RECORDS SUMMARY | 2024-09-14 10:19 | XMS_ITS | Encounter Summary ---
Author Organization Formerly [facility] Address [facility] [place] [address] Care Team Providers Care Director Market Intelligence Name Role Phone RanburneAlexia shell Shun ALCALA Primary Care Provider [phone] Reason for Referral * Consultation (Routine) - Authorized Specialty Diagnoses / Procedures Referred By Contac t Referred To Contact Cardiology Diagnoses HFrEF (heart failure with reduced ejection fraction) [facility] D/C acute HFrEF Alex Small MD [facility] [place] [address] Mushtaq Murphy APRN [facility] [place] [address] Referral ID Status Reason Start Date Expiration Date Visits Requested Visits Authorized [id number] Authorized Consult, Test & Treat 08/04/2024 08/04/2025 1 1 * Consultation (Routine) - Authorized Specialty Diagnoses / Procedures Referred By Contac t Referred To Contact Cardiology Diagnoses ST elevation myocardial infarction involving left anterior descending (LAD) coronary artery Yrn Ward MD [facility] [place] [address] Cardiac Rehab, [address] [place] [address] Referral ID Status Reason Start Date Expiration Date Visits Requested Visits Authorized [id number] Authorized Consult, Test & Treat 08/04/2024 01/31/2025 36 36 Reason for Visit * Auth/Cert (Routine) Specialty Diagnoses / Procedures Referred By Contac t Referred To Contact Diagnoses STEMI (ST elevation myocardial infarction) STEMI Procedures ER IPI Vahe Marvin MD [facility] [place] [address] [place] [address] [facility] Referral ID Status Reason Start Date Expiration Date Visits Re quested Visits Authorized [id number] 1 1 Encounter Details Date Type Department Care Team (Latest Contact Info) Description 07/29/2024 11:45 AM EST - 08/04/2024 5:00 PM EST Hospital Encounter Cardiovascular [place] [phone] Vahe Marvin MD [facility] [place] [address] [place] [address] Jay Silverio MD [facility] [place] [address] [address] Krystal Parker MD [facility] [place] [address] Bridgette Stauffer MD [facility] [place] [address] Yrn Ward MD [facility] [place] [address] [address] Alex Small MD [facility] [place] [address] [address] ST elevation myocardial infarction involving left anterior descending (LAD) coronary artery; HFrEF (heart failure with reduced ejection fraction) Discharge Disposition: Home Social History Tobacco Use Types Packs/Day Years Used Date Smoking Tobacco: Former Cigarettes Smokeless Tobacco: Never Alcohol Use Standard Drinks/Week Comments Not Currently 0 (1 standard drink = 0.6 oz pur e alcohol) [facility] Utilities Answer Date Recorded In [...] time in the past 12 m [facility], were you homeless or living in a [...] Korey Montoya Patient Age: 74 y.o. Language: Marshallese Race: White Ethnicity: Not nor Admit date: [...] please contact your inpatient physician through the [facility] Dolly Pusher . Issues afterhours and on weekends will [...] EKG. Patient transferred via air ambulance to [facility] on 07/29 for [...] EKG. Was transferred via air ambulance to [facility] for further management and LHC demonstrated 100% occlusion. No significant RCA, LMCA, or LCX disease. LOW placed in LAD with some residual distal disease meriting placement of overlapping distal stent. TTE showed apical akinesis and inferior hypokinesis with EF 20%. RHC showed elevated filling pressures. Impella placed and P-level 6 at time of transfer to [facility]. CI initially 1.97, improved to 2.2 [...] the next year. Access was via right FOOD SERVICE EMPLOYEE and this sitewas clean, dry and intact [...] for Chest pain. Replaces: nitroGLYcerin 400 mcg/spray [place], Non-Aerosol 0.4 mg Quantity: 90 tablet Refills: [...] Refills: 0 STOPPED Medications nitroGLYcerin 400 mcg/spray [place], Non-Aerosol Commonly known as: NITROLINGUAL Replaced by: [...] of one year. After this time, your materials handling equipment operator will determine if you need to [...] away. Stay on the phone. The emergency mill operator head will tell you what to do. Nitroglycerin [...] appointments: During 8am-5pm Tuesday through Tuesday call [phone] to speak with a nurse in the cardiology clinic All other times call [phone] and ask to speak to the building surveyor radiocommunications technician. Follow up Appointments: PCP Alexia Mtz, MULT AU MATIC OPERATOR [phone]. Please call to establish a follow up appointment within 1-2 weeks of discharge. Cardiology. Referral to heart failure has been sent. General Instructions None Future Appointments and Orders Future Orders Complete By Expires Referral to Cardiac Rehab [GSV478 Custom] As directed Process Instructions: If no progress note charted, please enter Clinical details in comments. Scheduling Instructions: Questions: My question or request is: STEMI, PCI- cardiac rehab at [facility] Referral to Cardiology [REF12 [...] of one year. After this time, your materials handling equipment operator will determine if you need to [...] away. Stay on the phone. The emergency mill operator head will tell you what to do. Nitroglycerin [...] appointments: During 8am-5pm Tuesday through Tuesday call [phone] to speak with a nurse in the cardiology clinic All other times call [phone] and ask to speak to the building surveyor radiocommunications technician. Follow up Appointments: PCP Alexia Mtz, MULT AU MATIC OPERATOR [phone]. Please call to establish a follow up [...] EKG. Patient transferred via air ambulance to [facility] on 07/29 for LHC and LOW to [facility] for 100% occlusion Social History: Pt lives with his in a 1 level home with 2 NAOMI. Pt was indep ICE SKATER. 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 He [...] Total time: 35 (tef) minutes Time IN/OUT: [id number] ZAIDA DUBOSE PT Pager: [phone] Physical Therapy Inpatient Rehabilitation Department * Yrn Ward MD - 08/03/2024 10:38 AM EST CV HOSPITALIST 2 - [facility] DAILY PROGRESS NOTE Page [phone] to reach a provider 04/04 Admit Date: [...] or before 29-JUL-2024) Lateral injury pattern ACUTE ID / STEMI Abnormal ECG When compared with [...] Compared to the overnight study by the radiocommunications technician fellow the impella position is stable. 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 [facility] 07/29/24 Conclusions: * One vessel coronary artery disease (LAD) * Mild pulmonary hypertension * Elevated pulmonary capillary wedge pressure * Successful stent insertion of the proximal LAD lesion * See Dual Antiplatelet (DAPT) Recommendations above * Successful impella placement for cardiogenic shock. Telemetry: I have personally reviewed and interpreted the telemetry from the last 24 hours. [facility] Assessment: ASSESSMENT: Korey Montoya is a 74 y.o. male w/ PMH of hypertension, HLD, and BPH who presents for chief concern of chest pain after being found to have ST elevations on EKG. Patient transferred via air ambulance to [facility] on 07/29 for [...] be determined OT: PCP Alexia Mtz, FREDRICK [phone] * Zaida Dubose, PT - 08/02/2024 2:08 PM EST Physical Therapy Evaluation Patient profile: Korey Montoya is a 74 y.o. male w/ PMH of hypertension, HLD, and BPH who presents for chief concern of chest pain after being found to have ST elevations on EKG. Patient transferred via air ambulance to [facility] on 07/29 for LHC and LOW to LAD for 100% occlusion Social History: Pt lives with his in a 1 level home with 2 NAOMI. Pt was indep ICE SKATER. 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 He [...] Total time: 37 (eval) minutes Time IN/OUT: [id number] ZAIDA DUBOSE PT Pager: [phone] Physical Therapy Inpatient Rehabilitation Department * Gagan [...] EKG. Patient transferred via air ambulance to [facility] on 07/29 for LHC and LOW to LAD for 100% occlusion. TTE showed apical akinesis and inferior hypokinesis with EF 20%. RHC showed elevated filling pressures. Impella placed and P-level 6 at time of transfer to [facility]. CI initially 1.97, improved to 2.2 [...] PCP: Alexia Mtz APRN PCP phone number: [phone] Date of Admission: 07/29/2024 ( Hospital Day 4 days ) Attending:Bridgette Stauffer MD ID: Korey Montoya is a 74 y.o. male w/ PMH of hypertension, HLD, and BPH on Hospital Day4 for chief concern of chest pain after being found to have ST elevations on EKG. Patient transferred via air ambulance to [facility] on 07/29 for [...] 07/29/24 1621 PHART 7.48* 7.44 7.38 7.37 BAR9TYA 29* 29* 34* 36 PO2ART 71* 109* 141* 71* SBA0DDK 20.6 19.4* 19.5* 20.4 VBG (Venous Blood Gas) Recent Labs 07/29/24 1401 PHVEN 7.30* PO2VEN 39 AFD5ZPN 20.1* Mixed Venous Sat No results for input(s): S3GTVR1 in the last 168 hours. Objective: Vitals [...] 07/29/24 1621 PHART 7.48* 7.44 7.38 7.37 UGF8HDJ 29* 29* 34* 36 PO2ART 71* 109* 141* 71* LEN1MIS 20.6 19.4* 19.5* 20.4 VBG (Venous Blood Gas) Recent Labs 07/29/24 1401 PHVEN 7.30* PO2VEN 39 KRE3IXD 20.1* Mixed Venous Sat No results for input(s): Y6MSJS5 in the last 168 hours. Microbiology: Microbiology Results (Last 30 days) Procedure Component Value Units Date/Time Blood culture [[id number]] Collected: 07/29/241607 Lab Status: Preliminary result Specimen: Blood, Venous Updated: 08/01/241700 Blood Culture No growth at 72 hours Blood culture [[id number]] Collected: 07/29/241607 Lab Status: Preliminary result Specimen: Blood, Venous Updated: 08/01/241700 Blood Culture No growth at 72 hours Imaging: Results for orders placed or performed during the hospital encounter of 07/29/24 XR Chest One View (Exam End: 07/29/2024 2:30 PM) Result Value WORKSTATION ID [id number] Impression 1. No pulmonary edema. 2. No pleural effusion. 3. No pneumothorax. Thank you for letting us participate in the care of this patient. If you are a health care provider and have any questions regarding this report, please contact the number below. For patients who have questions please contact the health skin care therapist that requested your imaging first. Electronically signed by: Chris Candelaria MD, [facility] ([phone]), at 07/29/2024 3:21 PM TTE ( 07/30/24) [...] Compared to the overnight study by the radiocommunications technician fellow the impella position is stable. [...] EKG. Patient transferred via air ambulance to [facility] on 07/29 for [...] Susannah Ornelas MD Internal Medicine, PGY-1 Cardiology, [facility] 08/02/24 12:45 PM CARDIOLOGY STAFF NOTE [...] Transfer to floor. Krystal Parker, MD, [facility], [facility] Staff Upper Cutter Machine card folder * Gagan Catherine MD - 08/01/2024 11:12 [...] EKG. Patient transferred via air ambulance to [facility] on 07/29 for [...] PCP: Alexia Mtz APRN PCP phone number: [phone] Date of Admission: 07/29/2024 ( Hospital Day 3 days ) Attending:Krystal Parker MD ID: Korey Montoya is a 74 y.o. male w/ PMH of hypertension, HLD, and BPH on Hospital Day3 for chief concern of chest pain after being found to have ST elevations on EKG. Patient transferred via air ambulance to [facility] on 07/29 for [...] 07/29/24 1621 PHART 7.48* 7.44 7.38 7.37 KDO3PJC 29* 29* 34* 36 PO2ART 71* 109* 141* 71* VAB4JPV 20.6 19.4* 19.5* 20.4 VBG (Venous Blood Gas) Recent Labs 07/29/24 1401 PHVEN 7.30* PO2VEN 39 AFD3XQU 20.1* Mixed Venous Sat No results for input(s): H5CDBG3 in the last 168 hours. PA Catheter [...] 07/29/24 1621 PHART 7.48* 7.44 7.38 7.37 WUU2FAL 29* 29* 34* 36 PO2ART 71* 109* 141* 71* FBF7ALL 20.6 19.4* 19.5* 20.4 VBG (Venous Blood Gas) Recent Labs 07/29/24 1401 PHVEN 7.30* PO2VEN 39 VPT9NAQ 20.1* Mixed Venous Sat No results for input(s): O0WVEE2 in the last 168 hours. Microbiology: Microbiology Results (Last 30 days) Procedure Component Value Units Date/Time Blood culture [[id number]] Collected: 07/29/241607 Lab Status: Preliminary result Specimen: Blood, Venous Updated: 07/31/241700 Blood Culture No growth at 48 hours Blood culture [[id number]] Collected: 07/29/241607 Lab Status: Preliminary result Specimen: Blood, Venous Updated: 07/31/241700 Blood Culture No growth at 48 hours Imaging: Results for orders placed or performed during the hospital encounter of 07/29/24 XR Chest One View (Exam End: 07/29/2024 2:30 PM) Result Value WORKSTATION ID [id number] Impression 1. No pulmonary edema. 2. No pleural effusion. 3. No pneumothorax. Thank you for letting us participate in the care of this patient. If you are a health care provider and have any questions regarding this report, please contact the number below. For patients who have questions please contact the health skin care therapist that requested your imaging first. Electronically signed by: Chris Candelaria MD, [facility] ([phone]), at 07/29/2024 3:21 PM TTE ( 07/30/24) [...] Compared to the overnight study by the radiocommunications technician fellow the impella position is stable. [...] EKG. Patient transferred via air ambulance to [facility] on 07/29 for [...] Susannah Ornelas MD Internal Medicine, PGY-1 Cardiology, [facility] 08/01/24 7:13 AM CARDIOLOGY STAFF NOTE [...] him; questions answered. Krystal Parker MD, [facility], [facility] Staff Upper Cutter Machine card folder * Krystal Parker MD - 07/31/2024 1:06 [...] ILL WITH THESE DIAGNOSES BEING MANAGED BY [facility] TEAM: # Anterior STEMI, late-presenting # [...] EKG. Patient transferred via air ambulance to [facility] on 07/29 for LHC and LOW to LAD for 100% occlusion. TTE showed apical akinesis and inferior hypokinesis with EF 20%. RHC showed elevated filling pressures. Impella placed and P-level 6 at time of transfer to [facility]. CI initially 1.97, improved to 2.2 After impella. Received about 3 L of fluid during procedural course. Patient initially required norepinephrine 30, epinephrine 10, and vasopressin 0.04 for hemodynamic support, which was weaned upon arrival to [facility] to norepinephrine 20and levo 0.04 N [...] PCP: Alexia Mtz APRN PCP phone number: [phone] Date of Admission: 07/29/2024 ( Hospital Day 2 days ) Attending:Krystal Parker MD ID: Korey Montoya is a 74 y.o. male w/ PMH of hypertension, HLD, and BPH on Hospital Day2 for chief concern of chest pain after being found to have ST elevations on EKG. Patient transferred via air ambulance to [facility] on 07/29 for [...] 0057 07/29/24 1621 PHART 7.44 7.38 7.37 GVD0VKG 29* 34* 36 PO2ART 109* 141* 71* SUW1ZAT 19.4* 19.5* 20.4 VBG (Venous Blood Gas) Recent Labs 07/29/24 1401 PHVEN 7.30* PO2VEN 39 TDX1AWR 20.1* Mixed Venous Sat No results for input(s): Z0PZSR5 in the last 168 hours. PA Catheter [...] 0057 07/29/24 1621 PHART 7.44 7.38 7.37 TVD9POW 29* 34* 36 PO2ART 109* 141* 71* WGZ9UHG 19.4* 19.5* 20.4 VBG (Venous Blood Gas) Recent Labs 07/29/24 1401 PHVEN 7.30* PO2VEN 39 CFS9VGB 20.1* Mixed Venous Sat No results for input(s): X9UZXS4 in the last 168 hours. Microbiology: Microbiology Results (Last 30 days) Procedure Component Value Units Date/Time Blood culture [[id number]] Collected: 07/29/241607 Lab Status: Preliminary result Specimen: Blood, Venous Updated: 07/30/24 170 Blood Culture No Growth at 18-24 hrs. Blood culture [[id number]] Collected: 07/29/241607 Lab Status: Preliminary result Specimen: Blood, Venous Updated: 07/30/241700 Blood Culture No Growth at 18-24 hrs. Imaging: Results for orders placed or performed during the hospital encounter of 07/29/24 XR Chest One View (Exam End: 07/29/2024 2:30 PM) Result Value WORKSTATION ID [id number] Impression 1. No pulmonary edema. 2. No pleural effusion. 3. No pneumothorax. Thank you for letting us participate in the care of this patient. If you are a health care provider and have any questions regarding this report, please contact the number below. For patients who have questions please contact the health skin care therapist that requested your imaging first. Electronically signed by: Chris Candelaria MD, [facility] ([phone]), at 07/29/2024 3:21 PM TTE ( 07/30/24) [...] Compared to the overnight study by the radiocommunications technician fellow the impella position is stable. [...] EKG. Patient transferred via air ambulance to [facility] on 07/29 for [...] and examined on critical care rounds. Korey oMntoya is a 74 y.o. male with the [...] work to optimize volume status while continuing ppovull-hhwnaj-ktzsztzfii therapies at this time. Obtain comprehensive TTE. [...] EKG. Patient transferred via air ambulance to [facility] on 07/29 for LHC and LOW to LAD for 100% occlusion. TTE showed apical akinesis and inferior hypokinesis with EF 20%. RHC showed elevated filling pressures. Impella placed and P-level 6 at time of transfer to [facility]. CI initially 1.97, improved to 2.2 After impella. Received about 3 L of fluid during procedural course. Patient initially required norepinephrine 30, epinephrine 10, and vasopressin 0.04 for hemodynamic support, which was weaned upon arrival to [facility] to norepinephrine 20and levo 0.04 N [...] PCP: Yoel Artis APRN PCP phone number: [phone] Date of Admission: 07/29/2024 ( Hospital Day 1 day ) Attending:Jay Silverio MD ID: Korey Montoya is a 74 y.o. male w/ PMH of hypertension, HLD, and BPH on Hospital Day1 for chief concern of chest pain after being found to have ST elevations on EKG. Patient transferred via air ambulance to [facility] on 07/29 for [...] 0057 07/29/24 1621 PHART 7.44 7.38 7.37 SVD1HFA 29* 34* 36 PO2ART 109* 141* 71* DRL4SGF 19.4* 19.5* 20.4 VBG (Venous Blood Gas) Recent Labs 07/29/24 1401 PHVEN 7.30* PO2VEN 39 XPF9DHN 20.1* Lactate ( Last 12 hours) 1.3 >> 1.2 Mixed Venous Sat No results for input(s): C0GMYR4 in the last 168 hours. PA Catheter [...] 0057 07/29/24 1621 PHART 7.44 7.38 7.37 GSV2BMF 29* 34* 36 PO2ART 109* 141* 71* CUS3FDZ 19.4* 19.5* 20.4 VBG (Venous Blood Gas) Recent Labs 07/29/24 1401 PHVEN 7.30* PO2VEN 39 SZU4KES 20.1* Mixed Venous Sat No results for input(s): Z6WERI5 in the last 168 hours. Microbiology: Microbiology Results (Last 30 days) Procedure Component Value Units Date/Time Blood culture [[id number]] Collected: 07/29/24 1608 Lab Status: In process Specimen: Blood, Venous Updated: 07/29/24 162 Blood culture [[id number]] Collected: 07/29/241607 Lab Status: In process Specimen: Blood, Venous Updated: 07/29/24 161 Imaging: Results for orders placed or performed during the hospital encounter of 07/29/24 XR Chest One View (Exam End: 07/29/2024 2:30 PM) Result Value WORKSTATION ID [id number] Impression 1. No pulmonary edema. 2. No pleural effusion. 3. No pneumothorax. Thank you for letting us participate in the care of this patient. If you are a health care provider and have any questions regarding this report, please contact the number below. For patients who have questions please contact the health skin care therapist that requested your imaging first. Electronically signed by: Chris Candelaria MD, [facility] ([phone]), at 07/29/2024 3:21 PM Medications Scheduled Meds: [...] EKG. Patient transferred via air ambulance to [facility] on 07/29 for [...] EKG. Patient transferred via air ambulance to [facility] on 07/29 for [...] EKG. Was transferred via air ambulance to [facility] for further management and [facility] demo nstrated 100% occlusion. No significant [...] performed by Brandan Mcgovern MD [facility] ENDOSCOPY Significant Family History: Family History [...] mouth. Past Week nitroGLYcerin (NITROLINGUAL) 400 mcg/spray [place], Non-Aerosol 1 spray to anus for proctalgia [...] 3.5 guiding catheter and a 3.5 Fr [place] [employer] [facility] [place] ST 20 Mhz using Manual pullback. Imaging [...] priority for the procedure was Emergent. [facility] was [...] atmospheres. A premounted 3.00 x 22 mm [place] (LOW) was deployed with a maximum inflation [...] atmospheres. A premounted 3.00 x 08 mm [place] (LOW) was deployed with a maximum inflation [...] a limited study performed by a fellow radiocommunications technician to evaluate for cardiogenic shock with [...] Compared to the overnight study by the radiocommunications technician fellow the impella position is stable. [...] EKG. Patient transferred via air ambulance to [facility] on 07/29 for [...] PCP: Yoel Artis APRN PCP phone number: [phone] Date of Admission: 07/29/2024 ( Hospital Day 0 days ) Attending:Jay Silverio MD ID: Korey Montoya is a 74 y.o. male w/ PMH of hypertension, HLD, and BPH who presents for chief concern of chest pain after being found to have ST elevations on EKG. Patient transferred via air ambulance to [facility] on 07/29 for LHC and LOW to LAD for 100% occlusion. HPI: Korey Montoya is a 74 y.o. male w/ PMH of hypertension, HLD, and BPH who presents for chief concern of chest pain after being found to have ST elevations on EKG. Patient transferred via air ambulance to [facility] on 07/29 for [...] EKG. Was transferred via air ambulance to [facility] for further management [...] performed by Brandan Mcgovern MD [facility] ENDOSCOPY Family History Family History Problem [...] Blood Gas) No results for input(s): PHART, AIP4OJD, PO2ART, NWC9FAP, LACTATEVEN, FMR3OVP, PFRATIOART2 in the last 168 hours. VBG (Venous Blood Gas) Recent Labs 07/29/24 1401 PHVEN 7.30* PO2VEN 39 EQF8SSR 20.1* Mixed Venous Sat No results for input(s): R9WHJZ3 in the last 168 hours. PA Catheter [...] Blood Gas) No results for input(s): PHART, WZV9HBP, PO2ART, HFH7TXQ, LACTATEVEN, GOT9LKZ, PFRATIOART2 in the last 168 hours. VBG (Venous Blood Gas) Recent Labs 07/29/24 1401 PHVEN 7.30* PO2VEN 39 DOM0CMH 20.1* Mixed Venous Sat No results for input(s): V9KNSI0 in the last 168 hours. Microbiology: Microbiology [...] EKG. Patient transferred via air ambulance to [facility] on 07/29 for LHC. Found to have 100% occlusion of LAD for which he underwent LOW to LAD.Otherwise no other significant vessel disease. Fahad is currently hemodynamically tenuous but improving upon admission to [facility], requiring hemodynamic support with norepinephrine and vasopressin at time of admission along with mechanical support with Impella device. Reassuringly, he demonstrates decreasing pressor requirements since admission to [facility], with epinephrine completely weaned. He does [...] Bernardo Amos MD Internal Medicine, PGY-3 Cardiology, [facility] 07/29/24 3:14 PM Cardiology Attending Note [...] MD, FACP, FACC Section of Cardiovascular Medicine [facility] [employer] materials buyer [facility] This patient meets or has met [...] to the planned procedure. Hand Hygiene: The blanking machine operator did perform hand hygiene prior [...] ease. Good wave form. Ivan Hernandez MD Energy Audit Advisor Associated attestation - Rolando Yeh MD - [...] Fahad was quite active prior to his ID. 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 Given parameters for home exercise. He follows a heart healthy diet and is not overweight. His lipids are wnl. Participation in an outpatient cardiac rehabilitation program at [facility] was discussed. Patient agrees [...] MEDICARE Payor: AAR MANAGED MEDICARE / Plan: [employer] MANAGED MEDICARE COMPLETE / Product Type: *No [...] of Discharge: 08/04/2024 Gaby Wong RN, CM [phone] * Initial Assessments - Char Meza OT - 08/03/2024 10:00 AM EST Occupational Therapy Evaluation Patient profile: Korey Montoya is a 74 y.o. male admitted on 07/29/2024 w/ PMH of hypertension, HLD, and BPH who presents for chief concern of chest pain after being found to have ST elevations onEKG. Patient transferred via air ambulance to [facility] on 07/29 for LHC and LOW to LAD for 100% occlusion. Past Medical History: Diagnosis Date ADHD HLD (hyperlipidemia) HTN (hypertension) Tremor Past Surgical History: Procedure Laterality Date HAND SURGERY PRO COLONOSCOPY, REMV LESN, SNARE N/A 08/30/2023 COLONOSCOPY, POLYPECTOMY, REMOVAL LESION BY SNARE (WRVU 4.57) performed by Brandan Mcgovern MD [facility] ENDOSCOPY Social History: Patient lives with [...] evaluation only Total Minutes, Occupational Therapy: 14 ([id number] (evaluation)) 2017 OT Evaluation Code Rationale: Diagnosis [...] and measurable assessment of functional outcome. 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 (Only good for 180 days) Any patient receiving care in [place] must abide by [place] law. The hierarchy for surrogate decision making [...] (i) The agent with financial power of immigration attorney or a conservator appointed in accordance [...] homeless or living in a penitentiary (including now)?: No In the past 12 months has the [place] [employer], gas, oil, or water [facility] threatened to shut off services in your [...] it) Home Address confirmed as: Mailing Address: [facility] [address] [place] [address] Physical Address: [address], [place] Social & Family Supports: All names [...] points: Addiction likely Health/Prescription Coverage: Primary Insurance: [facility] [employer] MEDICARE Payor: [facility] [employer] MEDICARE / Plan: [facility] [employer] MEDICARE COMPLETE / Product Type: *No Product type* / Secondary Insurance: N/A ; Prescription Coverage: Yes Preferred Pharmacy: [address] [address] [place] Status: Patient is a : No Primary Care Provider confirmed: Alexia Mtz, FREDRICK [phone] Patient/Caregiver Goals of Treatment: return home Potential [...] 07/29/2024 6:25 PM EST 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 CXR and EKG completed. Impella [...] Procedure Note: Patient Name: Korey Montoya : [id number] MR#: [id number] Case Date: 07/29/2024 Dolly Pusher: Surgeons and Role: * Vahe Marvin MD - Primary * Susannah Watts PA - Physician Risk Consultant Preoperative diagnosis: STEMI Postoperative diagnosis: * STEMI, LAD Artery * * Cardiogenic Shock * Procedure(s) performed: [facility] Coronary angiogram Stent insertion coronary IVUS coronary Venous line insert RH Gheens Colette Catheter Vascular closure device Ventricular assist [...] x 22 mm to 14 deonna JEISON Deuel with LIZ 3 flow. Residual distal disease at distal stent, overlapping distal stent was inserted with 3.0 x 8 mm JEISON Deuel. Systolic's in the 80's sustained. Patient re [...] AM EST Office Visit Cardiology at [address] [phone] Mushtaq Murphy, MULT AU MATIC OPERATOR Scheduled Orders Name Type Priority Associated Diagnoses [...] CBC (with Diff) (08/04/2024 6:08 AM EST) [facility] White Blood Cell 7.27 4.00 - 9.50 x10(3)/mc L 08/04/2024 6:39 AM [facility] Red Blood Cell 4.28(L) 4.58 - 5.54 x10(6)/mc L 08/04/2024 6:39 AM [facility] Hemoglobin 11.6(L) 13.7 - 16.5 g/dL 08/04/2024 6:39 AM [facility] Hematocrit 34.8(L) 40.5 - 48.5 % 08/04/2024 6:39 AM [facility] Mean Cell Volume 81.3(L) 82.9 - 93.1 fL 08/04/2024 6:39 AM [facility] Mean Cell Hemoglobin 27.1(L) 27.5 - 32.1 pg 08/04/2024 6:39 AM [facility] Mean Cell Hemoglobin Concentration 33.3 32.0 - 35.7 g/dL 08/04/2024 6:39 AM [facility] Platelet 178 145 - 357 x10(3)/mc L 08/04/2024 6:39 AM [facility] Mean Platelet Volume 10.6 7.6 - 12.9 fL 08/04/2024 6:39 AM [facility] RDW Standard Deviation 42.0 36.0 - 45.0 fL 08/04/2024 6:39 AM [facility] RDW coefficient of variation 14.3(H) 11.4 - 13.8 % 08/04/2024 6:39 AM [facility] NRBC% auto 0.0 % 08/04/2024 6:39 AM [facility] NRBC Absolute <0.01 <0.01 x10(3)/mc L 08/04/2024 6:39 AM [facility] Neutrophil % 72.1 % 08/04/2024 6:39 AM [facility] Neutrophil Absolute (ANC) - Automated 5.24 1.70 - 6.10 x10(3)/mc L 08/04/2024 6:39 AM [facility] Lymph % 16.8 % 08/04/2024 6:39 AM [facility] Lymph Absolute 1.22 0.90 - 3.20 x10(3)/mc L 08/04/2024 6:39 AM [facility] Monocyte % 8.5 % 08/04/2024 6:39 AM [facility] Monocyte Absolute 0.62 0.30 - 0.90 x10(3)/mc L 08/04/2024 6:39 AM [facility] Eos % 1.9 % 08/04/2024 6:39 AM [facility] Eos Absolute 0.14 0.00 - 0.40 x10(3)/mc L 08/04/2024 6:39 AM [facility] Basophil % 0.4 % 08/04/2024 6:39 AM [facility] Baso Absolute <0.04 0.00 - 0.10 x10(3)/mc L 08/04/2024 6:39 AM [facility] Immature Gran % 0.3 % 6:39 AM [facility] Immature Gran Absolute <0.04 0.00 - 0.04 x10(3)/mc L 08/04/2024 6:39 AM [facility] Blood VENOUS BLOOD SPECIMEN / Unknown Venipuncture / Unknown 08/04/2024 6:08 AM EST 08/04/2024 6:19 AM EST Bridgette Stauffer MD HEMATOLOGY ORDERABLE S [facility] [place] [address] * Magnesium (08/04/2024 6:08 AM EST) Magnesium 0.85 0.69 - 1.07 mMol/L 08/04/2024 7:07 AM [facility] Blood VENOUS BLOOD SPECIMEN / Unknown Venipuncture / Unknown 08/04/2024 6:08 AM EST 08/04/2024 6:19 AM EST Bridgette Stauffer MD CHEMISTRY ORDERABLES [facility] [place] [address] * Basic Metabolic Panel (08/04/2024 6:08 AM EST) Glucose 93 65 - 199 mg/dL 08/04/2024 7:07 AM [facility] Comment:Glucose Concentratio n >=200 mg/dL plus symptoms is consistent with Diabetes Mellitus. Blood Urea Nitrogen 14 10 - 20 mg/dL 08/04/2024 7:07 AM [facility] Creatinine 1.07 0.80 - 1.50 mg/dL 08/04/2024 7:07 AM [facility] Sodium 138 135 - 145 mMol/L 08/04/2024 7:07 AM [facility] Potassium 4.3 3.5 - 5.0 mMol/L 08/04/2024 7:07 AM [facility] Chloride 107 98 - 107 mMol/L 08/04/2024 7:07 AM [facility] Carbon Dioxide 23 22 - 31 mMol/L 08/04/2024 7:07 AM [facility] Anion Gap 8 5 - 15 mMol/L 08/04/2024 7:07 AM [facility] Calcium 8.5 8.5 - 10.5 mg/dL 08/04/2024 7:07 AM [facility] Est Glomerular Filtration Rate - Male 74 mL/min/1. 73 m?? 08/04/2024 7:07 AM [facility] Comment: This patient's estimated [...] MD CHEMISTRY ORDERABLES [facility] [place] [address] * (ABNORMAL) CBC (with Diff) (08/03/2024 5:16 AM EST) White Blood Cell 7.85 4.00 - 9.50 x10(3)/mc L 08/03/2024 5:29 AM [facility] Red Blood Cell 4.43(L) 4.58 - 5.54 x10(6)/mc L 08/03/2024 5:29 AM [facility] Hemoglobin 11.8(L) 13.7 - 16.5 g/dL 08/03/2024 5:29 AM [facility] Hematocrit 35.9(L) 40.5 - 48.5 % 08/03/2024 5:29 AM [facility] Mean Cell Volume 81.0(L) 82.9 - 93.1 fL 08/03/2024 5:29 AM [facility] Mean Cell Hemoglobin 26.6(L) 27.5 - 32.1 pg 08/03/2024 5:29 AM [facility] Mean Cell Hemoglobin Concentration 32.9 32.0 - 35.7 g/dL 08/03/2024 5:29 AM [facility] Platelet 142(L) 145 - 357 x10(3)/mc L 08/03/2024 5:29 AM [facility] Mean Platelet Volume 10.5 7.6 - 12.9 fL 08/03/2024 5:29 AM [facility] RDW Standard Deviation 42.5 36.0 - 45.0 fL 08/03/2024 5:29 AM [facility] RDW coefficient of variation 14.2(H) 11.4 - 13.8 % 08/03/2024 5:29 AM [facility] NRBC% auto 0.0 % 08/03/2024 5:29 AM [facility] NRBC Absolute <0.01 <0.01 x10(3)/mc L 08/03/2024 5:29 AM [facility] Neutrophil % 75.2 % 08/03/2024 5:29 AM [facility] Neutrophil Absolute (ANC) - Automated 5.91 1.70 - 6.10 x10(3)/mc L 08/03/2024 5:29 AM [facility] Lymph % 13.4 % 08/03/2024 5:29 AM [facility] Lymph Absolute 1.05 0.90 - 3.20 x10(3)/mc L 08/03/2024 5:29 AM [facility] Monocyte % 9.0 % 08/03/2024 5:29 AM [facility] Monocyte Absolute 0.71 0.30 - 0.90 x10(3)/mc L 08/03/2024 5:29 AM [facility] Eos % 1.7 % 08/03/2024 5:29 AM [facility] Eos Absolute 0.13 0.00 - 0.40 x10(3)/mc L 08/03/2024 5:29 AM [facility] Basophil % 0.4 % 08/03/2024 5:29 AM [facility] Baso Absolute <0.04 0.00 - 0.10 x10(3)/mc L 08/03/2024 5:29 AM [facility] Immature Gran % 0.3 % 5:29 AM [facility] Immature Gran Absolute <0.04 0.00 - 0.04 x10(3)/mc L 08/03/2024 5:29 AM [facility] Blood VENOUS BLOOD SPECIMEN / Unknown Venipuncture / Unknown 08/03/2024 5:16 AM EST 08/03/2024 5:23 AM EST Bridgette Stauffer MD HEMATOLOGY ORDERABLE S [facility] [place] [address] * Magnesium (08/03/2024 5:16 AM EST) Magnesium 0.89 0.69 - 1.07 mMol/L 08/03/2024 5:56 AM [facility] Blood VENOUS BLOOD SPECIMEN / Unknown Venipuncture / Unknown 08/03/2024 5:16 AM EST 08/03/2024 5:23 AM EST Bridgette Stauffer MD CHEMISTRY ORDERABLES [facility] [place] [address] * (ABNORMAL) Basic Metabolic Panel (08/03/2024 5:16 AM EST) Glucose 98 65 - 199 mg/dL 08/03/2024 5:56 AM [facility] Comment:Glucose Concentratio n >=200 mg/dL plus symptoms is consistent with Diabetes Mellitus. Blood Urea Nitrogen 16 10 - 20 mg/dL 08/03/2024 5:56 AM [facility] Creatinine 0.85 0.80 - 1.50 mg/dL 08/03/2024 5:56 AM [facility] Sodium 137 135 - 145 mMol/L 08/03/2024 5:56 AM EST [facility] Potassium 4.5 3.5 - 5.0 mMol/L 08/03/2024 5:56 AM [facility] Chloride 106 98 - 107 mMol/L 08/03/2024 5:56 AM [facility] Carbon Dioxide 21(L) 22 - 31 mMol/L 08/03/2024 5:56 AM [facility] Anion Gap 10 5 - 15 mMol/L 08/03/2024 5:56 AM EST [facility] Calcium 8.3(L) 8.5 - 10.5 mg/dL 08/03/2024 5:56 AM [facility] Est Glomerular Filtration Rate - Male 92 mL/min/1. 73 m?? 08/03/2024 5:56 AM [facility] Comment: This patient's estimated [...] Stauffer MD CHEMISTRY ORDERABLES Performing Organization Address [facility]/ZIP Co de Phone Number [facility] [place] [address] * POC, GLUCOSE (08/02/2024 7:47 AM EST) Glucometer, POC 89 65 - 199 mg/dL 08/02/2024 7:47 AM EST [facility] Comment:Supplemental ranges: <140 mg/dL before meals <180 mg/dL all other times of the day. Blood CAPILLARY BLOOD / Unknown 08/02/2024 7:47 AM EST 08/02/2024 7:47 AM EST Krystal Parker MD POINT OF CARE TEST O RDERABLES Performing Organization Address [facility] Co de Phone Number [facility] [place] [address] * (ABNORMAL) CBC (with Diff) (08/02/2024 4:20 AM EST) White Blood Cell 8.51 4.00 - 9.50 x10(3)/mc L 08/02/2024 4:50 AM EST [facility] Red Blood Cell 4.41(L) 4.58 - 5.54 x10(6)/mc L 08/02/2024 4:50 AM EST [facility] Hemoglobin 12.2(L) 13.7 - 16.5 g/dL 08/02/2024 4:50 AM EST [facility] Hematocrit 35.8(L) 40.5 - 48.5 % 08/02/2024 4:50 AM [facility] Mean Cell Volume 81.2(L) 82.9 - 93.1 fL 08/02/2024 4:50 AM [facility] Mean Cell Hemoglobin 27.7 27.5 - 32.1 pg 08/02/2024 4:50 AM [facility] Mean Cell Hemoglobin Concentration 34.1 32.0 - 35.7 g/dL 08/02/2024 4:50 AM [facility] Platelet 111(L) 145 - 357 x10(3)/mc L 08/02/2024 4:50 AM [facility] Mean Platelet Volume 11.1 7.6 - 12.9 fL 08/02/2024 4:50 AM [facility] RDW Standard Deviation 41.9 36.0 - 45.0 fL 08/02/2024 4:50 AM [facility] RDW coefficient of variation 14.1(H) 11.4 - 13.8 % 08/02/2024 4:50 AM [facility] NRBC% auto 0.0 % 08/02/2024 4:50 AM [facility] NRBC Absolute <0.01 <0.01 x10(3)/mc L 08/02/2024 4:50 AM [facility] Neutrophil % 77.7 % 08/02/2024 4:50 AM [facility] Neutrophil Absolute (ANC) - Automated 6.62(H) 1.70 - 6.10 x10(3)/mc L 08/02/2024 4:50 AM [facility] Lymph % 11.9 % 08/02/2024 4:50 AM [facility] Lymph Absolute 1.01 0.90 - 3.20 x10(3)/mc L 08/02/2024 4:50 AM [facility] Monocyte % 8.2 % 08/02/2024 4:50 AM [facility] Monocyte Absolute 0.70 0.30 - 0.90 x10(3)/mc L 08/02/2024 4:50 AM [facility] Eos % 1.4 % 08/02/2024 4:50 AM [facility] Eos Absolute 0.12 0.00 - 0.40 x10(3)/mc L 08/02/2024 4:50 AM [facility] Basophil % 0.4 % 08/02/2024 4:50 AM [facility] Baso Absolute <0.04 0.00 - 0.10 x10(3)/mc L 08/02/2024 4:50 AM [facility] Immature Gran % 0.4 % 4:50 AM [facility] Immature Gran Absolute <0.04 0.00 - 0.04 x10(3)/mc L 08/02/2024 4:50 AM [facility] Blood VENOUS BLOOD SPECIMEN / Unknown Venipuncture / Unknown 08/02/2024 4:20 AM EST 08/02/2024 4:37 AM EST Bridgette Stauffer MD HEMATOLOGY ORDERABLE S [facility] [place] [address] * Magnesium (08/02/2024 4:20 AM EST) Magnesium 0.79 0.69 - 1.07 mMol/L 08/02/2024 5:06 AM EST [facility] Blood VENOUS BLOOD SPECIMEN / Unknown Venipuncture / Unknown 08/02/2024 4:20 AM EST 08/02/2024 4:37 AM EST Bridgette Stauffer MD CHEMISTRY ORDERABLES [facility] [place] [address] * (ABNORMAL) Basic Metabolic Panel (08/02/2024 4:20 AM EST) Glucose 110 65 - 199 mg/dL 08/02/2024 5:06 AM [facility] Comment:Glucose Concentratio n >=200 mg/dL plus symptoms is consistent with Diabetes Mellitus. Blood Urea Nitrogen 12 10 - 20 mg/dL 08/02/2024 5:06 AM [facility] Creatinine 0.90 0.80 - 1.50 mg/dL 08/02/2024 5:06 AM [facility] Sodium 139 135 - 145 mMol/L 08/02/2024 5:06 AM [facility] Potassium 4.0 3.5 - 5.0 mMol/L 08/02/2024 5:06 AM [facility] Chloride 108(H) 98 - 107 mMol/L 08/02/2024 5:06 AM [facility] Carbon Dioxide 23 22 - 31 mMol/L 08/02/2024 5:06 AM [facility] Anion Gap 8 5 - 15 mMol/L 08/02/2024 5:06 AM [facility] Calcium 8.1(L) 8.5 - 10.5 mg/dL 08/02/2024 5:06 AM [facility] Est Glomerular Filtration Rate - Male 91 mL/min/1. 73 m?? 08/02/2024 5:06 AM [facility] Comment: This patient's estimated [...] Stauffer MD CHEMISTRY ORDERABLES Performing Organization Address [facility] Co de Phone Number [facility] [place] [address] * Potassium (08/01/2024 8:39 PM EST) Potassium 4.0 3.5 - 5.0 mMol/L 08/01/2024 9:21 PM EST [facility] Blood VENOUS BLOOD SPECIMEN / Unknown Venipuncture / Unknown 08/01/2024 8:39 PM EST 08/01/2024 8:51 PM EST Jay Silverio MD CHEMISTRY ORDERABL ES Performing Organization Address [facility] Phone Number [facility] [place] [address] * POC, GLUCOSE (08/01/2024 8:35 PM EST) Glucometer, POC 112 65 - 199 mg/dL 08/01/2024 8:36 PM EST [facility] Comment:Supplemental ranges: <140 mg/dL before meals <180 mg/dL all other times of the day. Blood CAPILLARY BLOOD / Unknown 08/01/2024 8:35 PM EST 08/01/2024 8:36 PM EST Krystal Parker MD POINT OF CARE TEST O RDERABLES Performing Organization Address [facility] Co de Phone Number [facility] [place] [address] * POC, GLUCOSE (08/01/2024 4:55 PM EST) Glucometer, POC 99 65 - 199 mg/dL 08/01/2024 4:56 PM EST [facility] Comment:Supplemental ranges: <140 mg/dL before meals <180 mg/dL all other times of the day. Blood CAPILLARY BLOOD / Unknown 08/01/2024 4:55 PM EST 08/01/2024 4:56 PM EST Krystal Parker MD POINT OF CARE TEST O JOSH Performing Organization Address [facility] Co de Phone Number [facility] [place] [address] * POC, GLUCOSE (08/01/2024 12:42 PM EST) Glucometer, POC 130 65 - 199 mg/dL 08/01/2024 12:43 PM EST [facility] Comment:Supplemental ranges: <140 mg/dL before meals <180 mg/dL all other times of the day. Blood CAPILLARY BLOOD / Unknown 08/01/2024 12:42 PM EST 08/01/2024 12:43 PM EST Krystal Parker MD POINT OF CARE TEST O JOSH Performing Organization Address [facility] Co de Phone Number [facility] [place] [address] * (ABNORMAL) Cooximetry, POC (08/01/2024 10:45 AM EST) pO2, Coox 32 mmHg 08/01/2024 10:48 AM [facility] Hemoglobin, Coox 12.9(L) 13.7 - 16.5 g/dL 08/01/2024 10:48 AM EST [facility] Oxyhemoglobin, Coox 66.7 % 08/01/2024 10:48 AM [facility] Carboxyhemoglo bin, Coox 1.1 % 08/01/2024 10:48 AM EST [facility] Comment: Nonsmokers: 0.5-1.5% COHB ?? Smokers: Variable ??but usually less than 10% ?? Toxic: 20-30% COHB ?? Lethal: Greater than 60% COHB Methemoglobin, Coox 0.3 <=1.5 % 08/01/2024 10:48 AM EST [facility] Blood (Mixed Venous) 08/01/2024 10:45 AM EST 08/01/2024 10:48 AM EST Krystal Parker MD POINT OF CARE TEST O RDERABLES Performing Organization Address [facility] Co de Phone Number [facility] [place] [address] * Potassium (08/01/2024 8:20 AM EST) Potassium 4.0 3.5 - 5.0 mMol/L 08/01/2024 10:17 AM EST [facility] Blood ARTERIAL BLOOD / Unknown Venipuncture / Unknown 08/01/2024 8:20 AM EST 08/01/2024 8:30 AM EST Jay Silverio MD CHEMISTRY ORDERABL ES Performing Organization Address [facility] Co de Phone Number [facility] [place] [address] * POC, GLUCOSE (08/01/2024 7:44 AM EST) Glucometer, POC 86 65 - 199 mg/dL 08/01/2024 7:44 AM EST [facility] Comment:Supplemental ranges: <140 mg/dL before meals <180 mg/dL all other times of the day. Blood CAPILLARY BLOOD / Unknown 08/01/2024 7:44 AM EST 08/01/2024 7:44 AM EST Krystal Parker MD POINT OF CARE TEST O RDERASHAY Performing Organization Address [facility]/ZIP Co de Phone Number [facility] [place] [address] * (ABNORMAL) CBC (with Diff) (08/01/2024 4:18 AM EST) White Blood Cell 8.51 4.00 - 9.50 x10(3)/mc L 08/01/2024 4:53 AM EST [facility] Red Blood Cell 4.12(L) 4.58 - 5.54 x10(6)/mc L 08/01/2024 4:53 AM [facility] Hemoglobin 11.2(L) 13.7 - 16.5 g/dL 08/01/2024 4:53 AM [facility] Hematocrit 33.8(L) 40.5 - 48.5 % 08/01/2024 4:53 AM [facility] Mean Cell Volume 82.0(L) 82.9 - 93.1 fL 08/01/2024 4:53 AM [facility] Mean Cell Hemoglobin 27.2(L) 27.5 - 32.1 pg 08/01/2024 4:53 AM [facility] Mean Cell Hemoglobin Concentration 33.1 32.0 - 35.7 g/dL 08/01/2024 4:53 AM [facility] Platelet 94(L) 145 - 357 x10(3)/mc L 08/01/2024 4:53 AM [facility] Mean Platelet Volume 10.9 7.6 - 12.9 fL 08/01/2024 4:53 AM [facility] RDW Standard Deviation 44.2 36.0 - 45.0 fL 08/01/2024 4:53 AM [facility] RDW coefficient of variation 14.7(H) 11.4 - 13.8 % 08/01/2024 4:53 AM [facility] NRBC% auto 0.0 % 08/01/2024 4:53 AM [facility] NRBC Absolute <0.01 <0.01 x10(3)/mc L 08/01/2024 4:53 AM [facility] Neutrophil % 82.7 % 08/01/2024 4:53 AM [facility] Neutrophil Absolute (ANC) - Automated 7.04(H) 1.70 - 6.10 x10(3)/mc L 08/01/2024 4:53 AM [facility] Lymph % 8.6 % 08/01/2024 4:53 AM [facility] Lymph Absolute 0.73(L) 0.90 - 3.20 x10(3)/mc L 08/01/2024 4:53 AM [facility] Monocyte % 7.6 % 08/01/2024 4:53 AM [facility] Monocyte Absolute 0.65 0.30 - 0.90 x10(3)/mc L 08/01/2024 4:53 AM [facility] Eos % 0.5 % 08/01/2024 4:53 AM [facility] Eos Absolute 0.04 0.00 - 0.40 x10(3)/mc L 08/01/2024 4:53 AM [facility] Basophil % 0.2 % 08/01/2024 4:53 AM [facility] Baso Absolute <0.04 0.00 - 0.10 x10(3)/mc L 08/01/2024 4:53 AM [facility] Immature Gran % 0.4 % 4:53 AM [facility] Immature Gran Absolute <0.04 0.00 - 0.04 x10(3)/mc L 08/01/2024 4:53 AM [facility] Blood VENOUS BLOOD SPECIMEN / Unknown Venipuncture / Unknown 08/01/2024 4:18 AM EST 08/01/2024 4:29 AM EST Bridgette Stauffer MD HEMATOLOGY ORDERABLE S [facility] [place] [address] * Magnesium (08/01/2024 4:18 AM EST) Magnesium 0.74 0.69 - 1.07 mMol/L 08/01/2024 5:00 AM [facility] Blood VENOUS BLOOD SPECIMEN / Unknown Venipuncture / Unknown 08/01/2024 4:18 AM EST 08/01/2024 4:29 AM EST Bridgette Stauffer MD CHEMISTRY ORDERABLES [facility] [place] [address] * (ABNORMAL) Basic Metabolic Panel (08/01/2024 4:18 AM EST) Glucose 107 65 - 199 mg/dL 08/01/2024 5:00 AM [facility] Comment:Glucose Concentratio n >=200 mg/dL plus symptoms is consistent with Diabetes Mellitus. Blood Urea Nitrogen 8(L) 10 - 20 mg/dL 08/01/2024 5:00 AM [facility] Creatinine 0.82 0.80 - 1.50 mg/dL 08/01/2024 5:00 AM [facility] Sodium 137 135 - 145 mMol/L 08/01/2024 5:00 AM [facility] Potassium 3.9 3.5 - 5.0 mMol/L 08/01/2024 5:00 AM [facility] Chloride 108(H) 98 - 107 mMol/L 08/01/2024 5:00 AM [facility] Carbon Dioxide 21(L) 22 - 31 mMol/L 08/01/2024 5:00 AM [facility] Anion Gap 8 5 - 15 mMol/L 08/01/2024 5:00 AM [facility] Calcium 7.7(L) 8.5 - 10.5 mg/dL 08/01/2024 5:00 AM [facility] Est Glomerular Filtration Rate - Male 93 mL/min/1. 73 m?? 08/01/2024 5:00 AM [facility] Comment: This patient's estimated [...] Stauffer MD CHEMISTRY ORDERABLES Performing Organization Address [facility] Co de Phone Number [facility] [place] [address] * POC, GLUCOSE (07/31/2024 8:41 PM EST) [facility] Signature Glucometer, POC 73 65 - 199 mg/dL 07/31/2024 8:41 PM EST [facility] Comment:Supplemental ranges: <140 mg/dL before meals <180 mg/dL all other times of the day. Blood CAPILLARY BLOOD / Unknown 07/31/2024 8:41 PM EST 07/31/2024 8:41 PM EST Krystal Parker MD POINT OF CARE TEST O RDERABLES Performing Organization Address [facility] Co de Phone Number [facility] [place] [address] * CARDIAC CATHETERIZATION (07/31/2024 5:53 PM EST) Anatomical Region Laterality Modality Other Narrative 08/01/2024 12:37 PM EST ?[facility] ? Cardiac Catheterization/Intervention Report ? Patient Name: Korey Montoya. ? Procedure Date: 07/31/2024 ? A #: [id number] ? Primary Physician: Janelle, Maldonado T ? Case #: [id number] ? File Name: [id number] ? Catheterization Order Number: [id number] ? [facility] ? Final Report [place], [place] ? Patient Name: ? Korey P. Montoya ?ID#: ?[id number] ? : ?1950 ? Procedure Date: ? July 31, 2024 ?Case #: ? [id number] ? Room: ? 1 ? Case Physician: [...] ? 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 ??Good [...] Maldonado Luis MD - 08/01/2024 [facility] Cardiac Catheterization/Intervention Report Patient Name: Korey MontoyaToby Procedure Date: 07/31/2024 A #: [id number] Primary Physician: Maldonado Luis Case #: [id number] File Name: [id number] Catheterization Order Number: [id number] [facility] FinalReport [place], [place] Patient Name: Korey Montoya ID#:[id number] :1950 Procedure Date: July 31, 2024 Case [...] procedures. 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 Good [...] * POC, GLUCOSE (07/31/2024 11:04 AM EST) [facility] Glucometer, POC 82 65 - 199 mg/dL 07/31/2024 11:04 AM EST [facility] Comment:Supplemental ranges: <140 mg/dL before meals <180 mg/dL all other times of the day. Blood CAPILLARY BLOOD / Unknown 07/31/2024 11:04 AM EST 07/31/2024 11:04 AM EST Krystal Parker MD POINT OF CARE TEST O RDERABLES [facility] [place] [address] * (ABNORMAL) Blood Gas, Arterial POC (07/31/2024 8:29 AM EST) Pathologist [facility] pH, Arterial 7.48(H) 7.35 - 7.45 07/31/2024 8:30 AM EST [facility] PCO2, Arterial 29(L) 35 - 45 mmHg 07/31/2024 8:30 AM EST [facility] PO2, Arterial 71(L) 85 - 104 mmHg 07/31/2024 8:30 AM EST [facility] Bicarbonate, Arterial 20.6 20.0 - 26.0 mmol/L 07/31/2024 8:30 AM EST [facility] Base Excess, Arterial -3.0 -3.0 - 3.0 mmol/L 07/31/2024 8:30 AM [facility] Hemoglobin, Arterial 12.3(L) 13.7 - 16.5 g/dL 07/31/2024 8:30 AM [facility] Oxyhemoglobin, Arterial 94.4 94.0 - 97.0 % 07/31/2024 8:30 AM [facility] Carboxyhemoglobin , Arterial 0.7 % 07/31/2024 8:30 AM [facility] Comment: Nonsmokers: 0.5-1.5% COHB ?? Smokers: Variable ??but usually less than 10% ?? Toxic: 20-30% COHB ?? Lethal: Greater than 60% COHB Methemoglobin, Arterial 0.3 <=1.5 % 07/31/2024 8:30 AM [facility] Sodium, Arterial 138 135 - 145 mmol/L 07/31/2024 8:30 AM [facility] Potassium, Arterial 3.5 3.5 - 5.0 mmol/L 07/31/2024 8:30 AM [facility] Chloride, Arterial 109(H) 98 - 107 mmol/L 07/31/2024 8:30 AM [facility] Lactate, Arterial 0.8 0.5 - 2.2 mmol/L 07/31/2024 8:30 AM [facility] Fraction of Inspired Oxygen 21 % 07/31/2024 8:30 AM [facility] PF Ratio 338 Ratio 07/31/2024 8:30 AM [facility] Comment:PF ratio calculated using the non-temperature corrected pO2 result. IONIZED CALCIUM, ARTERIAL 1.08(L) 1.15 - 1.33 mmol/L 07/31/2024 8:30 AM [facility] Glucose, Arterial 86 65 - 199 mg/dL 07/31/2024 8:30 AM [facility] Comment:Glucose Concentratio n >=200 mg/dL plus symptoms is consistent with Diabetes Mellitus. Blood ARTERIAL BLOOD / Unknown 07/31/2024 8:29 AM EST 07/31/2024 8:30 AM EST Krystal Parker MD POINT OF CARE TEST O JOSH Performing Organization Address [facility]/ZIP Co de Phone Number [facility] [place] [address] * POC, GLUCOSE (07/31/2024 7:47 AM EST) Glucometer, POC 82 65 - 199 mg/dL 07/31/2024 7:53 AM [facility] Comment:Supplemental ranges: <140 mg/dL before meals <180 mg/dL all other times of the day. Blood CAPILLARY BLOOD / Unknown 07/31/2024 7:47 AM EST 07/31/2024 7:53 AM EST Krystal Parker MD POINT OF CARE TEST O JOSH Performing Organization Address [facility] Co de Phone Number [facility] [place] [address] * (ABNORMAL) CBC (with Diff) (07/31/2024 1:08 AM EST) White Blood Cell 10.25(H) 4.00 - 9.50 x10(3)/mc L 07/31/2024 1:28 AM [facility] Red Blood Cell 4.13(L) 4.58 - 5.54 x10(6)/mc L 07/31/2024 1:28 AM [facility] Hemoglobin 11.2(L) 13.7 - 16.5 g/dL 07/31/2024 1:28 AM [facility] Hematocrit 33.9(L) 40.5 - 48.5 % 07/31/2024 1:28 AM [facility] Mean Cell Volume 82.1(L) 82.9 - 93.1 fL 07/31/2024 1:28 AM [facility] Mean Cell Hemoglobin 27.1(L) 27.5 - 32.1 pg 07/31/2024 1:28 AM [facility] Mean Cell Hemoglobin Concentration 33.0 32.0 - 35.7 g/dL 07/31/2024 1:28 AM [facility] Platelet 109(L) 145 - 357 x10(3)/mc L 07/31/2024 1:28 AM [facility] Mean Platelet Volume 10.4 7.6 - 12.9 fL 07/31/2024 1:28 AM [facility] RDW Standard Deviation 45.1(H) 36.0 - 45.0 fL 07/31/2024 1:28 AM [facility] RDW coefficient of variation 15.1(H) 11.4 - 13.8 % 07/31/2024 1:28 AM [facility] NRBC% auto 0.0 % 07/31/2024 1:28 AM [facility] NRBC Absolute <0.01 <0.01 x10(3)/mc L 07/31/2024 1:28 AM [facility] Neutrophil % 79.7 % 07/31/2024 1:28 AM [facility] Neutrophil Absolute (ANC) - Automated 8.17(H) 1.70 - 6.10 x10(3)/mc L 07/31/2024 1:28 AM [facility] Lymph % 12.8 % 07/31/2024 1:28 AM [facility] Lymph Absolute 1.31 0.90 - 3.20 x10(3)/mc L 07/31/2024 1:28 AM [facility] Monocyte % 6.9 % 07/31/2024 1:28 AM [facility] Monocyte Absolute 0.71 0.30 - 0.90 x10(3)/mc L 07/31/2024 1:28 AM [facility] Eos % 0.1 % 07/31/2024 1:28 AM [facility] Eos Absolute <0.04 0.00 - 0.40 x10(3)/mc L 07/31/2024 1:28 AM EST [facility] Basophil % 0.3 % 07/31/2024 1:28 AM EST [facility] Baso Absolute <0.04 0.00 - 0.10 x10(3)/mc L 07/31/2024 1:28 AM EST [facility] Immature Gran % 0.2 % 1:28 AM EST [facility] Immature Gran Absolute <0.04 0.00 - 0.04 x10(3)/mc L 07/31/2024 1:28 AM EST [facility] Blood VENOUS BLOOD SPECIMEN / Unknown Venipuncture / Unknown 07/31/2024 1:08 AM EST 07/31/2024 1:18 AM EST Bridgette Stauffer MD HEMATOLOGY ORDERABLE S Performing Organization Address City/[facility]/ZIP Co de Phone Number [facility] [place] [address] * Magnesium (07/31/2024 1:08 AM EST) Magnesium 0.89 0.69 - 1.07 mMol/L 07/31/2024 1:46 AM EST [facility] Blood VENOUS BLOOD SPECIMEN / Unknown Venipuncture / Unknown 07/31/2024 1:08 AM EST 07/31/2024 1:18 AM EST Bridgette Stauffer MD CHEMISTRY ORDERABLES [facility] [place] [address] * (ABNORMAL) Basic Metabolic Panel (07/31/2024 1:08 AM EST) Glucose 97 65 - 199 mg/dL 07/31/2024 1:46 AM EST [facility] Comment:Glucose Concentratio n >=200 mg/dL plus symptoms is consistent with Diabetes Mellitus. Blood Urea Nitrogen 11 10 - 20 mg/dL 07/31/2024 1:46 AM [facility] Creatinine 0.96 0.80 - 1.50 mg/dL 07/31/2024 1:46 AM EST [facility] Sodium 140 135 - 145 mMol/L 07/31/2024 1:46 AM [facility] Potassium 4.1 3.5 - 5.0 mMol/L 07/31/2024 1:46 AM EST [facility] Chloride 110(H) 98 - 107 mMol/L 07/31/2024 1:46 AM [facility] Carbon Dioxide 24 22 - 31 mMol/L 07/31/2024 1:46 AM [facility] Anion Gap 6 5 - 15 mMol/L 07/31/2024 1:46 AM [facility] Calcium 7.7(L) 8.5 - 10.5 mg/dL 07/31/2024 1:46 AM [facility] Est Glomerular Filtration Rate - Male 84 mL/min/1. 73 m?? 07/31/2024 1:46 AM [facility] Comment: This patient's estimated [...] MD CHEMISTRY ORDERABLES [facility] [place] [address] * (ABNORMAL) Hepatic Function Panel (07/31/2024 1:08 AM EST) Albumin 3.1(L) 3.2 - 5.2 g/dL 07/31/2024 1:46 AM [facility] Aspartate Aminotransferase 192(H) <=39 unit/L 07/31/2024 1:46 AM [facility] Alanine Aminotransferase 59(H) 0 - 55 unit/L 07/31/2024 1:46 AM [facility] Alkaline Phosphatase 46 40 - 130 unit/L 07/31/2024 1:46 AM [facility] Bilirubin, Total 0.4 <=1.3 mg/dL 07/31/2024 1:46 AM [facility] Bilirubin, Direct <0.2 0.0 - 0.3 mg/dL 07/31/2024 1:46 AM [facility] Protein, Total 5.0(L) 6.1 - 8.0 g/dL 07/31/2024 1:46 AM [facility] Blood VENOUS BLOOD SPECIMEN / Unknown Venipuncture / Unknown 07/31/2024 1:08 AM EST 07/31/2024 1:18 AM EST Krsytal Parker MD CHEMISTRY ORDERABLES Performing Organization Address City/[facility] Co de Phone Number [facility] [place] [address] * POC, GLUCOSE (07/30/2024 8:03 PM EST) Glucometer, POC 86 65 - 199 mg/dL 07/30/2024 8:03 PM [facility] Comment:Supplemental ranges: <140 mg/dL before meals <180 mg/dL all other times of the day. Blood CAPILLARY BLOOD / Unknown 07/30/2024 8:03 PM EST 07/30/2024 8:03 PM EST Krystal Parker MD POINT OF CARE TEST O RDERABLES [facility] [place] [address] * Potassium (07/30/2024 8:03 PM EST) Potassium 3.8 3.5 - 5.0 mMol/L 07/30/2024 9:13 PM EST [facility] Blood VENOUS BLOOD SPECIMEN / Unknown Venipuncture / Unknown 07/30/2024 8:03 PM EST 07/30/2024 8:22 PM EST Jay Silverio MD CHEMISTRY ORDERABL ES Performing Organization Address [facility] Co de Phone Number [facility] [place] [address] * POC, GLUCOSE (07/30/2024 6:23 PM EST) Glucometer, POC 93 65 - 199 mg/dL 07/30/2024 6:24 PM EST [facility] Comment:Supplemental ranges: <140 mg/dL before meals <180 mg/dL all other times of the day. Blood CAPILLARY BLOOD / Unknown 07/30/2024 6:23 PM EST 07/30/2024 6:24 PM EST Krystal Parker MD POINT OF CARE TEST O RDERABLES Performing Organization Address City/[facility]/ZIP Co de Phone Number [facility] [place] [address] * POC, GLUCOSE (07/30/2024 5:08 PM EST) Glucometer, POC 78 65 - 199 mg/dL 07/30/2024 5:08 PM EST [facility] Comment:Supplemental ranges: <140 mg/dL before meals <180 mg/dL all other times of the day. Blood CAPILLARY BLOOD / Unknown 07/30/2024 5:08 PM EST 07/30/2024 5:08 PM EST Krystal Parker MD POINT OF CARE TEST O RDERABLES Performing Organization Address [facility]/ZIP Co de Phone Number [facility] [place] [address] * (ABNORMAL) Phosphorus (07/30/2024 3:08 PM EST) Phosphorus 2.1(L) 2.5 - 4.5 mg/dL 07/30/2024 3:58 PM EST [facility] Blood VENOUS BLOOD SPECIMEN / Unknown Venipuncture / Unknown 07/30/2024 3:08 PM EST 07/30/2024 3:12 PM EST Jay Silverio MD CHEMISTRY ORDERABL ES Performing Organization Address [facility] Co de Phone Number [facility] [place] [address] * Magnesium (07/30/2024 3:08 PM EST) Magnesium 0.90 0.69 - 1.07 mMol/L 07/30/2024 3:58 PM EST [facility] Blood VENOUS BLOOD SPECIMEN / Unknown Venipuncture / Unknown 07/30/2024 3:08 PM EST 07/30/2024 3:12 PM EST Jay Silverio MD CHEMISTRY ORDERABL ES Performing Organization Address [facility]/ZIP Co de Phone Number [facility] [place] [address] * (ABNORMAL) Basic Metabolic Panel (07/30/2024 3:08 PM EST) Glucose 105 65 - 199 mg/dL 07/30/2024 4:17 PM EST [facility] Comment:Glucose Concentratio n >=200 mg/dL plus symptoms is consistent with Diabetes Mellitus. Blood Urea Nitrogen 13 10 - 20 mg/dL 07/30/2024 4:17 PM EST [facility] Creatinine 1.01 0.80 - 1.50 mg/dL 07/30/2024 4:17 PM EST [facility] Sodium 141 135 - 145 mMol/L 07/30/2024 4:17 PM EST [facility] Potassium 3.4(L) 3.5 - 5.0 mMol/L 07/30/2024 4:17 PM [facility] Chloride 109(H) 98 - 107 mMol/L 07/30/2024 4:17 PM [facility] Carbon Dioxide 21(L) 22 - 31 mMol/L 07/30/2024 4:17 PM [facility] Anion Gap 11 5 - 15 mMol/L 07/30/2024 4:17 PM [facility] Calcium 7.9(L) 8.5 - 10.5 mg/dL 07/30/2024 4:17 PM [facility] Est Glomerular Filtration Rate - Male 79 mL/min/1. 73 m?? 07/30/2024 4:17 PM [facility] Comment: This patient's estimated [...] EST Jay Silverio MD CHEMISTRY ORDERABL ES [facility] [place] [address] * ECHO LMTD W CONTRAST W LMTD SPEC DOPP COLOR DOPP (07/30/2024 11:42 AM EST) Anatomical Region Laterality Modality Cardiac Other 07/30/2024 10:2 2 AM EST Narrative 07/30/2024 12:34 PM EST [address] [place] [address] ? Echocardiogram Report Name: KOREY MONTOYA ? Study Date: 07/30/2024 10:22 AMBP: 124/66 mmHg : 1950 ? Height: 168 cm ? Account: [id number] Age: 74 yrs ? Weight: 65 kg Gender: Male ?BSA: 1.7 m2 Ordering Physician: Jay Silverio MD Referring Physician: CHAPARRO FERRERA Performed By: OMERO Millan Reason For Study: ST elevation myocardial infarction involving left anterior descending (LAD) coronary artery Interpreting Fellow: Ivan Hernandez. Exam Location: [facility]. Interpretation Summary Left ventricle is severely [...] Compared to the overnight study by the radiocommunications technician fellow the impella position is stable. 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 Procedure Limited - 02586. Image enhancement Definity was used for both [...] Note Kathleen Banda MD - 07/30/2024 [address] [place] [address] Echocardiogram Report Name: KOREY MONTOYA Study Date: 410:22 AMBP: 124/66 mmHg : 1950 Height: 168 cm Account: [id number] Age: 74 yrs Weight: 65 kg Gender: Male BSA: 1.7 m2 Ordering Physician: Jay Silverio MD Referring Physician: CHAPARRO FERRERA Performed By: OMERO Millan Reason For Study: ST elevation myocardial infarction involving leftanterior descending (LAD) coronary artery Interpreting Fellow: Ivan Hernandez. Exam Location: [facility]. Interpretation Summary Left ventricle is severely [...] Compared to the overnight study by the radiocommunications technician fellow the impella positionis stable. The global left ventricular systolic function has improvedpredominantly via recruitment outside the LAD territory which remains akinetic. Procedure Limited - 49606. Image enhancement Definity was used for both [...] - 199 mg/dL 07/30/2024 11:17 AM EST [facility] Comment:Supplemental ranges: <140 mg/dL before meals <180 mg/dL all other times of the day. Blood CAPILLARY BLOOD / Unknown 07/30/2024 11:17 AM EST 07/30/2024 11:17 AM EST Jay Silverio MD POINT OF CARE TEST ORDERABLES [facility] [place] [address] * (ABNORMAL) Blood Gas, Arterial POC (07/30/2024 8:16 AM EST) pH, Arterial 7.44 7.35 - 7.45 07/30/2024 8:17 AM EST [facility] PCO2, Arterial 29(L) 35 - 45 mmHg 07/30/2024 8:17 AM EST [facility] PO2, Arterial 109(H) 85 - 104 mmHg 07/30/2024 8:17 AM EST [facility] Bicarbonate, Arterial 19.4(L) 20.0 - 26.0 mmol/L 07/30/2024 8:17 AM [facility] Base Excess, Arterial -4.7(L) -3.0 - 3.0 mmol/L 07/30/2024 8:17 AM [facility] Hemoglobin, Arterial 12.2(L) 13.7 - 16.5 g/dL 07/30/2024 8:17 AM [facility] Oxyhemoglobin, Arterial 97.1(H) 94.0 - 97.0 % 07/30/2024 8:17 AM [facility] Carboxyhemoglob in, Arterial 1.0 % 07/30/2024 8:17 AM [facility] Comment: Nonsmokers: 0.5-1.5% COHB ?? Smokers: Variable ??but usually less than 10% ?? Toxic: 20-30% COHB ?? Lethal: Greater than 60% COHB Methemoglobin, Arterial 0.1 <=1.5 % 07/30/2024 8:17 AM [facility] Sodium, Arterial 132(L) 135 - 145 mmol/L 07/30/2024 8:17 AM [facility] Potassium, Arterial 3.9 3.5 - 5.0 mmol/L 07/30/2024 8:17 AM [facility] Chloride, Arterial 105 98 - 107 mmol/L 07/30/2024 8:17 AM [facility] Lactate, Arterial 1.2 0.5 - 2.2 mmol/L 07/30/2024 8:17 AM [facility] Fraction of Inspired Oxygen 21 % 07/30/2024 8:17 AM [facility] PF Ratio 519 Ratio 07/30/2024 8:17 AM [facility] Comment:PF ratio calculated using the non-temperature corrected pO2 result. IONIZED CALCIUM, ARTERIAL 1.15 1.15 - 1.33 mmol/L 07/30/2024 8:17 AM [facility] Blood ARTERIAL BLOOD / Unknown 07/30/2024 8:16 AM EST 07/30/2024 8:17 AM EST Jay Silverio MD POINT OF CARE TEST ORDERABLES [facility] [place] [address] * (ABNORMAL) Troponin - Single (07/30/2024 8:09 [...] [place] Test Catalog Troponin - [email or web address]/[email or web address] Reference: Fourth [place] Definition of Myocardial Infarction. Journal of the [employer] 2018;72:4889-3429 Blood VENOUS BLOOD SPECIMEN / Unknown Venipuncture / Unknown 07/30/2024 8:09 AM EST 07/30/2024 8:26 AM EST Jay Silverio MD CHEMISTRY ORDERABL ES Performing Organization Address City/[facility]/ZIP Co de Phone Number [facility] [place] [address] * POC, GLUCOSE (07/30/2024 7:40 AM EST) [facility] Glucometer, POC 111 65 - 199 mg/dL 07/30/2024 7:40 AM [facility] Comment:Supplemental ranges: <140 mg/dL before meals <180 mg/dL all other times of the day. Blood CAPILLARY BLOOD / Unknown 07/30/2024 7:40 AM EST 07/30/2024 7:40 AM EST Jay Silverio MD POINT OF CARE TEST ORDERABLES [facility] [place] [address] * (ABNORMAL) CBC (with Diff) (07/30/2024 2:11 AM EST) [facility] White Blood Cell 11.25(H) 4.00 - 9.50 x10(3)/mc L 07/30/2024 2:33 AM [facility] Red Blood Cell 4.50(L) 4.58 - 5.54 x10(6)/mc L 07/30/2024 2:33 AM [facility] Hemoglobin 12.2(L) 13.7 - 16.5 g/dL 07/30/2024 2:33 AM [facility] Hematocrit 37.1(L) 40.5 - 48.5 % 07/30/2024 2:33 AM [facility] Mean Cell Volume 82.4(L) 82.9 - 93.1 fL 07/30/2024 2:33 AM [facility] Mean Cell Hemoglobin 27.1(L) 27.5 - 32.1 pg 07/30/2024 2:33 AM [facility] Mean Cell Hemoglobin Concentration 32.9 32.0 - 35.7 g/dL 07/30/2024 2:33 AM [facility] Platelet 166 145 - 357 x10(3)/mc L 07/30/2024 2:33 AM [facility] Mean Platelet Volume 10.6 7.6 - 12.9 fL 07/30/2024 2:33 AM [facility] RDW Standard Deviation 44.6 36.0 - 45.0 fL 07/30/2024 2:33 AM [facility] RDW coefficient of variation 14.6(H) 11.4 - 13.8 % 07/30/2024 2:33 AM [facility] NRBC% auto 0.0 % 07/30/2024 2:33 AM [facility] NRBC Absolute <0.01 <0.01 x10(3)/mc L 07/30/2024 2:33 AM [facility] Neutrophil % 88.9 % 07/30/2024 2:33 AM [facility] Neutrophil Absolute (ANC) - Automated 10.00(H) 1.70 - 6.10 x10(3)/mc L 07/30/2024 2:33 AM [facility] Lymph % 5.1 % 07/30/2024 2:33 AM [facility] Lymph Absolute 0.57(L) 0.90 - 3.20 x10(3)/mc L 07/30/2024 2:33 AM [facility] Monocyte % 5.4 % 07/30/2024 2:33 AM [facility] Monocyte Absolute 0.61 0.30 - 0.90 x10(3)/mc L 07/30/2024 2:33 AM [facility] Eos % 0.0 % 07/30/2024 2:33 AM [facility] Eos Absolute <0.04 0.00 - 0.40 x10(3)/mc L 07/30/2024 2:33 AM [facility] Basophil % 0.2 % 07/30/2024 2:33 AM [facility] Baso Absolute <0.04 0.00 - 0.10 x10(3)/mc L 07/30/2024 2:33 AM [facility] Immature Gran % 0.4 % 2:33 AM EST [facility] Immature Gran Absolute 0.05(H) 0.00 - 0.04 x10(3)/mc L 07/30/2024 2:33 AM [facility] Blood VENOUS BLOOD SPECIMEN / Unknown Venipuncture / Unknown 07/30/2024 2:11 AM EST 07/30/2024 2:22 AM EST Bridgette Stauffer MD HEMATOLOGY ORDERABLE S Performing Organization Address City/[facility]/ZIP Co de Phone Number [facility] [place] [place] [address] * Magnesium (07/30/2024 2:11 AM EST) Pathologist [facility] Magnesium 1.01 0.69 - 1.07 mMol/L 07/30/2024 2:51 AM [facility] Blood VENOUS BLOOD SPECIMEN / Unknown Venipuncture / Unknown 07/30/2024 2:11 AM EST 07/30/2024 2:22 AM EST Bridgette Stauffer MD CHEMISTRY ORDERABLES Performing Organization Address City/[facility] Co de Phone Number [facility] [place] [place] [address] * (ABNORMAL) Basic Metabolic Panel (07/30/2024 2:11 AM EST) Pathologist [facility] Glucose 190 65 - 199 mg/dL 07/30/2024 2:51 AM [facility] Comment:Glucose Concentratio n >=200 mg/dL plus symptoms is consistent with Diabetes Mellitus. Blood Urea Nitrogen 15 10 - 20 mg/dL 07/30/2024 2:51 AM [facility] Creatinine 0.88 0.80 - 1.50 mg/dL 07/30/2024 2:51 AM [facility] Sodium 135 135 - 145 mMol/L 07/30/2024 2:51 AM [facility] Potassium 4.9 3.5 - 5.0 mMol/L 07/30/2024 2:51 AM EST [facility] Chloride 105 98 - 107 mMol/L 07/30/2024 2:51 AM [facility] Carbon Dioxide 19(L) 22 - 31 mMol/L 07/30/2024 2:51 AM [facility] Anion Gap 11 5 - 15 mMol/L 07/30/2024 2:51 AM [facility] Calcium 7.7(L) 8.5 - 10.5 mg/dL 07/30/2024 2:51 AM [facility] Est Glomerular Filtration Rate - Male 91 mL/min/1. 73 m?? 07/30/2024 2:51 AM [facility] Comment: This patient's estimated [...] MD CHEMISTRY ORDERABLES [facility] [place] [address] * (ABNORMAL) Cooximetry, POC (07/30/2024 1:00 AM EST) pO2, Coox 28 mmHg 07/30/2024 1:03 AM [facility] Hemoglobin, Coox 12.7(L) 13.7 - 16.5 g/dL 07/30/2024 1:03 AM [facility] Oxyhemoglobin, Coox 54.9 % 07/30/2024 1:03 AM [facility] Carboxyhemoglo bin, Coox 1.0 % 07/30/2024 1:03 AM [facility] Comment: Nonsmokers: 0.5-1.5% COHB ?? Smokers: Variable ??but usually less than 10% ?? Toxic: 20-30% COHB ?? Lethal: Greater than 60% COHB Methemoglobin, Coox 0.0 <=1.5 % 07/30/2024 1:03 AM [facility] Blood (Mixed Venous) 07/30/2024 1:00 AM EST 07/30/2024 1:03 AM EST Jay Silverio MD POINT OF CARE TEST ORDERABLES Performing Organization Address City/State/[facility] Co de Phone Number [facility] [place] [address] * (ABNORMAL) Blood Gas, Arterial POC (07/30/2024 12:57 AM EST) pH, Arterial 7.38 7.35 - 7.45 07/30/2024 12:58 AM [facility] PCO2, Arterial 34(L) 35 - 45 mmHg 07/30/2024 12:58 AM [facility] PO2, Arterial 141(H) 85 - 104 mmHg 07/30/2024 12:58 AM [facility] Bicarbonate, Arterial 19.5(L) 20.0 - 26.0 mmol/L 07/30/2024 12:58 AM [facility] Base Excess, Arterial -5.6(L) -3.0 - 3.0 mmol/L 07/30/2024 12:58 AM [facility] Hemoglobin, Arterial 13.0(L) 13.7 - 16.5 g/dL 07/30/2024 12:58 AM [facility] Oxyhemoglobin, Arterial 98.4(H) 94.0 - 97.0 % 07/30/2024 12:58 AM [facility] Carboxyhemoglobin , Arterial 0.4 % 07/30/2024 12:58 AM [facility] Comment: Nonsmokers: 0.5-1.5% COHB ?? Smokers: Variable ??but usually less than 10% ?? Toxic: 20-30% COHB ?? Lethal: Greater than 60% COHB Methemoglobin, Arterial 0.1 <=1.5 % 07/30/2024 12:58 AM [facility] Sodium, Arterial 130(L) 135 - 145 mmol/L 07/30/2024 12:58 AM [facility] Potassium, Arterial 4.5 3.5 - 5.0 mmol/L 07/30/2024 12:58 AM [facility] Chloride, Arterial 104 98 - 107 mmol/L 07/30/2024 12:58 AM [facility] Lactate, Arterial 1.3 0.5 - 2.2 mmol/L 07/30/2024 12:58 AM [facility] Flow Rate 2.0 L/min 07/30/2024 12:58 AM [facility] IONIZED CALCIUM, ARTERIAL 1.12(L) 1.15 - 1.33 mmol/L 07/30/2024 12:58 AM [facility] Glucose, Arterial 184 65 - 199 mg/dL 07/30/2024 12:58 AM [facility] Comment:Glucose Concentratio n >=200 mg/dL plus symptoms is consistent with Diabetes Mellitus. Blood ARTERIAL BLOOD / Unknown 07/30/2024 12:57 AM EST 07/30/2024 12:58 AM EST Jay Silverio MD POINT OF CARE TEST ORDERABLES [facility] [place] [address] * (ABNORMAL) Troponin - Single (07/29/2024 10:31 PM EST) Troponin-T, High Sensitivity >10,000(H ) <=22 ng/L 07/29/2024 11:03 PM EST [facility] Comment: [...] [place] [facility] Test Catalog Troponin - [email or web address]/catalogs/[email or web address] Reference: Fourth [place] Definition of Myocardial Infarction. Journal of the [employer] 2018;72:4826-7296 Blood VENOUS BLOOD SPECIMEN / Unknown Venipuncture / Unknown 07/29/2024 10:31 PM EST 07/29/2024 10:36 PM EST Yrn Ward MD CHEMISTRY ORDERABL ES [facility] [place] [address] * Potassium (07/29/2024 8:11 PM EST) Potassium 4.1 3.5 - 5.0 mMol/L 07/29/2024 8:52 PM EST [facility] Blood VENOUS BLOOD SPECIMEN / Unknown Venipuncture / Unknown 07/29/2024 8:11 PM EST 07/29/2024 8:16 PM EST Jay Silverio MD CHEMISTRY ORDERABL ES [facility] [place] [address] * (ABNORMAL) Troponin - Single (07/29/2024 8:11 [...] [place] [facility] Test Catalog Troponin - [email or web address]/catalogs/[email or web address] Reference: Fourth [place] Definition of Myocardial Infarction. Journal of the [place] [employer] 2018;72:1097-3912 Blood VENOUS BLOOD SPECIMEN / Unknown Venipuncture / Unknown 07/29/2024 8:11 PM EST 07/29/2024 8:16 PM EST Jay Silverio MD CHEMISTRY ORDERABL ES [facility] [place] [address] * (ABNORMAL) Phosphorus (07/29/2024 8:11 PM EST) Phosphorus 2.1(L) 2.5 - 4.5 mg/dL 07/29/2024 8:52 PM EST [facility] Blood VENOUS BLOOD SPECIMEN / Unknown Venipuncture / Unknown 07/29/2024 8:11 PM EST 07/29/2024 8:16 PM EST Jay Silverio MD CHEMISTRY ORDERABL ES Performing Organization Address City/[facility]/ZIP Co de Phone Number [facility] [place] [address] * POC, GLUCOSE (07/29/2024 8:09 PM EST) Glucometer, POC 142 65 - 199 mg/dL 07/29/2024 8:09 PM EST [facility] Comment:Supplemental ranges: <140 mg/dL before meals <180 mg/dL all other times of the day. Blood CAPILLARY BLOOD / Unknown 07/29/2024 8:09 PM EST 07/29/2024 8:09 PM EST Jay Silverio MD POINT OF CARE TEST ORDERABLES Performing Organization Address City/[facility]/ZIP Co de Phone Number [facility] [place] [address] * ABORH RECHECK (07/29/2024 6:43 PM EST) ABORH Recheck AB POSITIVE 07/29/2024 10:13 PM EST [facility] Blood VENOUS BLOOD SPECIMEN / Unknown Venipuncture / Unknown 07/29/2024 6:43 PM EST 07/29/2024 7:15 PM EST Jay Silverio MD BLOOD BANK LAB ORD ERABLES Performing Organization Address City/[facility]/ZIP Co de Phone Number [facility] [place] [place] [address] * POC, GLUCOSE (07/29/2024 5:57 PM EST) Glucometer, POC 166 65 - 199 mg/dL 07/29/2024 5:57 PM EST [facility] Comment:Supplemental ranges: <140 mg/dL before meals <180 mg/dL all other times of the day. Blood CAPILLARY BLOOD / Unknown 07/29/2024 5:57 PM EST 07/29/2024 5:57 PM EST Jay Silverio MD POINT OF CARE TEST ORDERABLES Performing Organization Address City/[facility]/ZIP Co de Phone Number [facility] [place] [address] * Type and screen ([facility]/CGP/MAGALIE) (07/29/2024 5:56 PM EST) [facility] ABORH Type AB POSITIVE 07/29/2024 9:44 PM EST [facility] PATIENT HISTORY Not Found 07/29/2024 9:44 PM EST [facility] Expires at [id number] on: 08/01/2024 07/29/2024 9:44 PM EST [facility] ANTIBODY SCREEN AUTOMATED Negative 07/29/2024 9:44 PM EST [facility] T&S only valid at [facility] [facility] 07/29/2024 9:44 PM EST [facility] Blood VENOUS BLOOD SPECIMEN / Unknown Venipuncture / Unknown 07/29/2024 5:56 PM EST 07/29/2024 6:07 PM EST Narrative [facility] - 07/29/2024 9:44 PM EST This Type and Screen result is only valid at the [facility] [facility] Jay Silverio MD BLOOD BANK LAB ORD ERABLES Performing Organization Address City/[facility]/ZIP Co de Phone Number [facility] [place] [place] [address] * (ABNORMAL) Troponin - Single (07/29/2024 4:52 PM EST) [facility] Troponin-T, High Sensitivity >10,000(H ) <=22 ng/L [...] [place] [facility] Test Catalog Troponin - [email or web address]/[email or web address] Reference: Fourth [place] Definition of Myocardial Infarction. Journal of the [place] 2018;72:1107-4571 Blood VENOUS BLOOD SPECIMEN / Unknown Venipuncture / Unknown 07/29/2024 4:52 PM EST 07/29/2024 4:57 PM EST Jay Silverio MD CHEMISTRY ORDERABL ES Performing Organization Address City/State/[facility] [place] [address] * EKG 12 Lead (07/29/2024 4:21 PM EST) Ventricular rate 72 BPM MUSE SYSTEM Atrial Rate 72 BPM MUSE SYSTEM P-R Interval 168 ms MUSE SYSTEM QRS Duration 82 ms MUSE SYSTEM Q-T Interval 392 ms MUSE SYSTEM QTC Calculated (Bezet) 429 ms MUSE SYSTEM Calculated P Stevenson 71 degrees MUSE SYSTEM Calculated R Stevenson 77 degrees MUSE SYSTEM Calculated T Stevenson 28 degrees MUSE SYSTEM INTERPRETATION Sinus rhythm with Premature supraventricular complexes and Occasional Premature ventricular complexes Low voltage QRS 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) Lateral injury pattern ACUTE ID / STEMI Abnormal ECG When compared with [...] - 7.45 07/29/2024 4:22 PM [facility] PCO2, Arterial 36 35 - 45 mmHg 07/29/2024 4:22 PM [facility] PO2, Arterial 71(L) 85 - 104 mmHg 07/29/2024 4:22 PM [facility] Bicarbonate, Arterial 20.4 20.0 - 26.0 mmol/L 07/29/2024 4:22 PM [facility] Base Excess, Arterial -4.8(L) -3.0 - 3.0 mmol/L 07/29/2024 4:22 PM [facility] Hemoglobin, Arterial 12.2(L) 13.7 - 16.5 g/dL 07/29/2024 4:22 PM [facility] Oxyhemoglobin, Arterial 93.8(L) 94.0 - 97.0 % 07/29/2024 4:22 PM [facility] Carboxyhemoglobin , Arterial 0.5 % 07/29/2024 4:22 PM [facility] Comment: Nonsmokers: 0.5-1.5% COHB ?? Smokers: Variable ??but usually less than 10% ?? Toxic: 20-30% COHB ?? Lethal: Greater than 60% COHB Methemoglobin, Arterial 0.3 <=1.5 % 07/29/2024 4:22 PM [facility] Sodium, Arterial 134(L) 135 - 145 mmol/L 07/29/2024 4:22 PM [facility] Potassium, Arterial 4.2 3.5 - 5.0 mmol/L 07/29/2024 4:22 PM [facility] Chloride, Arterial 107 98 - 107 mmol/L 07/29/2024 4:22 PM [facility] Lactate, Arterial 1.5 0.5 - 2.2 mmol/L 07/29/2024 4:22 PM [facility] Fraction of Inspired Oxygen 21 % 07/29/2024 4:22 PM [facility] PF Ratio 338 Ratio 07/29/2024 4:22 PM [facility] Comment:PF ratio calculated using the non-temperature corrected pO2 result. IONIZED CALCIUM, ARTERIAL 1.12(L) 1.15 - 1.33 mmol/L 07/29/2024 4:22 PM [facility] Glucose, Arterial 181 65 - 199 mg/dL 07/29/2024 4:22 PM [facility] Comment:Glucose Concentratio n >=200 mg/dL plus symptoms is consistent with Diabetes Mellitus. Blood ARTERIAL BLOOD / Unknown 07/29/2024 4:21 PM EST 07/29/2024 4:22 PM EST Jay Silverio MD POINT OF CARE TEST ORDERABLES Performing Organization Address City/[facility]/ZIP Co de Phone Number [facility] [place] [address] * POC, GLUCOSE (07/29/2024 4:19 PM EST) [facility] Signature Glucometer, POC 185 65 - 199 mg/dL 07/29/2024 4:19 PM [facility] Comment:Supplemental ranges: <140 mg/dL before meals <180 mg/dL all other times of the day. Blood CAPILLARY BLOOD / Unknown 07/29/2024 4:19 PM EST 07/29/2024 4:19 PM EST Jay Silverio MD POINT OF CARE TEST ORDERABLES [facility] [place] [address] * Blood culture (07/29/2024 4:08 PM EST) Blood Culture No growth at 120 hours 08/03/2024 5:01 PM EST [facility] Blood VENOUS BLOOD SPECIMEN / Unknown Venipuncture / Unknown 07/29/2024 4:08 PM EST 07/29/2024 4:15 PM EST Jay Silverio MD MICROBIOLOGY - BLO OD ORDERABLES Performing Organization Address City/[facility] Co de Phone Number [facility] [place] [address] * Blood culture (07/29/2024 4:08 PM EST) Blood Culture No growth at 120 hours 08/03/2024 5:01 PM EST [facility] Blood VENOUS BLOOD SPECIMEN / Unknown Venipuncture / Unknown 07/29/2024 4:08 PM EST 07/29/2024 4:26 PM EST Jay Silverio MD MICROBIOLOGY - BLO OD ORDERABLES Performing Organization Address [facility] Co de Phone Number [facility] [place] [place] [address] * XR Chest One View (07/29/2024 2:30 PM EST) WORKSTATION ID [id number] RAD Anatomical Region Laterality Modality Chest N/A [...] questions please contact the health skin care therapist that requested your imaging first. ? Electronically signed by: Chris Candelaria MD, [facility] ([phone]), at 07/29/2024 3:21 PM Narrative 07/29/2024 3:21 [...] have questions please contactthe health skin care therapist that requested your imaging first. Electronically signed by: [facility]([phone]), at 07/29/2024 3:21 PM Vahe Marvin MD IMG DX ORDERABLES * (ABNORMAL) APTT (07/29/2024 2:03 PM EST) Partial Thromboplastin Time >160(HH[facility]) 25 - 37 sec 07/29/2024 2:56 PM EST [facility] Blood VENOUS BLOOD SPECIMEN / Unknown Venipuncture / Unknown 07/29/2024 2:03 PM EST 07/29/2024 2:13 PM EST Vahe Marvin MD HEMATOLOGY ORDERABLE S Performing Organization Address City/[facility]/ZIP Co de Phone Number [facility] [place] [address] * (ABNORMAL) Prothrombin Time (07/29/2024 2:03 PM [...] MD HEMATOLOGY ORDERABLE S Performing Organization Address City/[facility]/ZIP Co de Phone Number [facility] [place] [address] * CRP, acute inflammation (07/29/2024 2:03 PM EST) C-Reactive Protein <3.0 <=4.9 mg/L 07/29/2024 2:52 PM EST [facility] Blood VENOUS BLOOD SPECIMEN / Unknown Venipuncture / Unknown 07/29/2024 2:03 PM EST 07/29/2024 2:14 PM EST Vahe Marvin MD CHEMISTRY ORDERABLES [facility] [place] [address] * Lipid Panel (Reflex Direct LDL) (07/29/2024 2:03 PM EST) [facility] Signature Cholesterol, Total 133 mg/dL 07/29/2024 2:52 PM [facility] Comment: Desirable: < 200 mg/dL Borderline High: 200 - 239 mg/dL High: > or = 240 mg/dL Triglyceride 45 mg/dL 07/29/2024 2:52 PM [facility] Comment: Normal: <150 mg/dL Borderline High: 150-199 mg/dL High: 200-499 mg/dL Very High: > or =500 mg/dL HDL Cholesterol 58 mg/dL 2:52 PM [facility] Comment:Males: High Risk: <4 0 mg/dL LDL Cholesterol 64 mg/dL 4 2:52 PM [facility] Comment: Desirable: <100 mg/dL Above Desirable: 100-129 mg/dL Borderline High: 130-159 mg/dL High: 160-189 mg/dL Very High: > or =190 mg/dL Note: LDL calculation updated to the NIH LDL formula as of 04/15/2024 Non-HDL Cholesterol 75 mg/dL 07/29/2024 2:52 PM [facility] Comment: Desirable: <130 mg/dL Above Desirable: 130-159 mg/dL Borderline High: 160-189 mg/dL High: 190-219 mg/dL Very High: > or = 220 mg/dL Blood VENOUS BLOOD SPECIMEN / Unknown Venipuncture / Unknown 07/29/2024 2:03 PM EST 07/29/2024 2:14 PM EST Narrative [facility] - 07/29/2024 2:52 PM EST It [...] ACC/AHA Guidelines (most recently Rolf et al. [facility] 06/15/22): * For individuals with [...] Marvin MD CHEMISTRY ORDERABLES Performing Organization Address City/[facility]/ZIP Co de Phone Number [facility] [place] [address] * TSH Ransom (07/29/2024 2:03 PM EST) Thyroid Stimulating Hormone 0.70 0.27 - 4.20 mcIU/mL 07/29/2024 2:52 PM EST [facility] Blood VENOUS BLOOD SPECIMEN / Unknown Venipuncture / Unknown 07/29/2024 2:03 PM EST 07/29/2024 2:14 PM EST Vahe Marvin MD CHEMISTRY ORDERABLES Performing Organization Address [facility] Co de Phone Number [facility] [place] [address] * Hemoglobin A1c (07/29/2024 2:03 PM EST) [...] red blood cell turnover may not be parts sales representative of glycemic control. Reference Interval: [...] EST 07/29/2024 2:14 PM EST [facility] - 07/29/2024 2:41 PM EST Estimated average glucose (eAG) is calculated from the equation described in: Quinten ALVES, Rikki J, [place] R, et al. ??Translating the A1C assay into estimated average glucose values. ??Diabetes Care 2008:31(8):1410-4801. Additional resources are available on the ADA website (diabetes.org). Vahe Marvin MD CHEMISTRY ORDERABLES [facility] [place] [address] * (ABNORMAL) CBC (with Diff) (07/29/2024 2:03 PM EST) White Blood Cell 19.50(H) 4.00 - 9.50 x10(3)/mc L 07/29/2024 2:18 PM EST [facility] Red Blood Cell 4.81 4.58 - 5.54 x10(6)/mc L 07/29/2024 2:18 PM [facility] Hemoglobin 13.1(L) 13.7 - 16.5 g/dL 07/29/2024 2:18 PM [facility] Hematocrit 40.1(L) 40.5 - 48.5 % 07/29/2024 2:18 PM [facility] Mean Cell Volume 83.4 82.9 - 93.1 fL 07/29/2024 2:18 PM [facility] Mean Cell Hemoglobin 27.2(L) 27.5 - 32.1 pg 07/29/2024 2:18 PM [facility] [facility] Mean Cell Hemoglobin Concentration 32.7 32.0 - 35.7 g/dL 07/29/2024 2:18 PM [facility] Platelet 236 145 - 357 x10(3)/mc L 07/29/2024 2:18 PM [facility] Mean Platelet Volume 10.6 7.6 - 12.9 fL 07/29/2024 2:18 PM [facility] RDW Standard Deviation 43.7 36.0 - 45.0 fL 07/29/2024 2:18 PM [facility] RDW coefficient of variation 14.3(H) 11.4 - 13.8 % 07/29/2024 2:18 PM [facility] NRBC% auto 0.0 % 07/29/2024 2:18 PM [facility] NRBC Absolute <0.01 <0.01 x10(3)/mc L 07/29/2024 2:18 PM [facility] Neutrophil % 93.6 % 07/29/2024 2:18 PM [facility] Neutrophil Absolute (ANC) - Automated 18.28(H) 1.70 - 6.10 x10(3)/mc L 07/29/2024 2:18 PM [facility] Lymph % 2.7 % 07/29/2024 2:18 PM [facility] Lymph Absolute 0.52(L) 0.90 - 3.20 x10(3)/mc L 07/29/2024 2:18 PM [facility] Monocyte % 2.9 % 07/29/2024 2:18 PM [facility] Monocyte Absolute 0.56 0.30 - 0.90 x10(3)/mc L 07/29/2024 2:18 PM [facility] Eos % 0.0 % 07/29/2024 2:18 PM [facility] Eos Absolute <0.04 0.00 - 0.40 x10(3)/mc L 07/29/2024 2:18 PM [facility] Basophil % 0.3 % 07/29/2024 2:18 PM [facility] Baso Absolute 0.05 0.00 - 0.10 x10(3)/mc L 07/29/2024 2:18 PM [facility] Immature Gran % 0.5 % 2:18 PM [facility] Immature Gran Absolute 0.09(H) 0.00 - 0.04 x10(3)/mc L 07/29/2024 2:18 PM EST [facility] Blood VENOUS BLOOD SPECIMEN / Unknown Venipuncture / Unknown 07/29/2024 2:03 PM EST 07/29/2024 2:13 PM EST Vahe Marvin MD HEMATOLOGY ORDERABLE S Performing Organization Address City/[facility]/ZIP Co de Phone Number [facility] [place] [address] * Phosphorus (07/29/2024 2:03 PM EST) Phosphorus 2.5 2.5 - 4.5 mg/dL 07/29/2024 2:52 PM EST [facility] Blood VENOUS BLOOD SPECIMEN / Unknown Venipuncture / Unknown 07/29/2024 2:03 PM EST 07/29/2024 2:14 PM EST Vahe Marvin MD CHEMISTRY ORDERABLES Performing Organization Address [facility] Co de Phone Number [facility] [place] [address] * Magnesium (07/29/2024 2:03 PM EST) Magnesium 0.70 0.69 - 1.07 mMol/L 07/29/2024 2:52 PM EST [facility] Blood VENOUS BLOOD SPECIMEN / Unknown Venipuncture / Unknown 07/29/2024 2:03 PM EST 07/29/2024 2:14 PM EST Vahe Marvin MD CHEMISTRY ORDERABLES Performing Organization Address [facility] Co de Phone Number [facility] [place] [address] * (ABNORMAL) Comprehensive metabolic panel (07/29/2024 2:03 PM EST) Glucose 243(H) 65 - 199 mg/dL 07/29/2024 3:11 PM [facility] Comment:Glucose Concentratio n >=200 mg/dL plus symptoms is consistent with Diabetes Mellitus. Blood Urea Nitrogen 13 10 - 20 mg/dL 07/29/2024 3:11 PM [facility] Creatinine 0.88 0.80 - 1.50 mg/dL 07/29/2024 3:11 PM [facility] Sodium 138 135 - 145 mMol/L 07/29/2024 3:11 PM [facility] Potassium 3.6 3.5 - 5.0 mMol/L 07/29/2024 3:11 PM [facility] Chloride 104 98 - 107 mMol/L 07/29/2024 3:11 PM [facility] Carbon Dioxide 19(L) 22 - 31 mMol/L 07/29/2024 3:11 PM [facility] Anion Gap 15 5 - 15 mMol/L 07/29/2024 3:11 PM [facility] Calcium 8.0(L) 8.5 - 10.5 mg/dL 07/29/2024 3:11 PM [facility] Protein, Total 6.0(L) 6.1 - 8.0 g/dL 07/29/2024 3:11 PM [facility] Albumin 3.6 3.2 - 5.2 g/dL 07/29/2024 3:11 PM [facility] Aspartate Aminotransferase 07/29/2024 3:11 PM [facility] Comment:Unable to report due to hemolysis. Alanine Aminotransferase 56(H) 0 - 55 unit/L 07/29/2024 3:11 PM [facility] Alkaline Phosphatase 58 40 - 130 unit/L 07/29/2024 3:11 PM [facility] Bilirubin, Total 0.5 <=1.3 mg/dL 07/29/2024 3:11 PM [facility] Est Glomerular Filtration Rate - Male 91 mL/min/1. 73 m?? 07/29/2024 3:11 PM EST [facility] Comment: [...] MD CHEMISTRY ORDERABLES [facility] [place] [address] * (ABNORMAL) Troponin - Single (07/29/2024 2:03 [...] [facility] Test Catalog Troponin - https://[email or web address]-.testcatalog.org/catalogs/565/files/16333 Reference: Fourth [place] Definition of Myocardial Infarction. Journal of the [place] College [employer]iology 2018;72:3898-8997 Blood VENOUS BLOOD SPECIMEN / Unknown Venipuncture / Unknown 07/29/2024 2:03 PM EST 07/29/2024 2:14 PM EST Vahe Marvin MD CHEMISTRY ORDERABLES [facility] [place] [address] * (ABNORMAL) Blood Gas, Venous POC (07/29/2024 2:01 PM EST) pH, Venous 7.30(L) 7.32 - 7.42 07/29/2024 2:02 PM EST [facility] PCO2, Venous 42 38 - 58 mmHg 07/29/2024 2:02 PM [facility] PO2, Venous 39 16 - 65 mmHg 07/29/2024 2:02 PM [facility] Bicarbonate, Venous 20.1(L) 22 - 31 mmol/L 07/29/2024 2:02 PM [facility] Base Excess, Venous -6.4(L) 1.9 - 4.5 mmol/L 07/29/2024 2:02 PM [facility] Hemoglobin, Venous 14.2 13.7 - 16.5 g/dL 07/29/2024 2:02 PM [facility] Oxyhemoglobin, Venous 69.3 % 07/29/2024 2:02 PM [facility] Carboxyhemoglobin , Venous 0.8 % 07/29/2024 2:02 PM [facility] Comment: Nonsmokers: 0.5-1.5% COHB ?? Smokers: Variable ??but usually less than 10% ?? Toxic: 20-30% COHB ?? Lethal: Greater than 60% COHB Methemoglobin, Venous 0.3 <=1.5 % 07/29/2024 2:02 PM EST [facility] Sodium, Venous 137 135 - 145 mmol/L 07/29/2024 2:02 PM EST [facility] Potassium, Venous 3.6 3.5 - 5.0 mmol/L 07/29/2024 2:02 PM EST [facility] Chloride, Venous 103 98 - 107 mmol/L 07/29/2024 2:02 PM EST [facility] Glucose, Venous 229(H) 65 - 199 mg/dL 07/29/2024 2:02 PM EST [facility] Comment:Glucose Concentratio n >=200 mg/dL plus symptoms is consistent with Diabetes Mellitus. Lactate, Venous 3.1(H) 0.5 - 2.2 mmol/L 07/29/2024 2:02 PM [facility] Ionized Calcium, Venous 1.11(L) 1.15 - 1.33 mmol/L 07/29/2024 2:02 PM EST [facility] Blood VENOUS BLOOD SPECIMEN / Unknown 07/29/2024 2:01 PM EST 07/29/2024 2:02 PM EST Vahe Marvin MD POINT OF CARE TEST O RDERABLES Performing Organization Address City/State/[facility] Co de Phone Number [facility] [place] [address] * CARDIAC CATHETERIZATION (07/29/2024 1:20 PM EST) Anatomical Region Laterality Modality Other Narrative 07/29/2024 2:02 PM EST ?[facility] ? Cardiac Catheterization/Intervention Report ? Patient Name: Korey Montoya. ? Procedure Date: 07/29/2024 ? A #: [id number] ? Primary Physician: Shavonne, Vahe S ? Case #: [id number] ? File Name: [id number] ? Catheterization Order Number: [id number] ? [facility] ? Final Report [place], [place] ? Patient Name: ? Korey P. Montoya ?ID#: ?[id number] ? : ?1950 ? Procedure Date: ? July 29, 2024 ?Case #: ? [id number] ? Room: ? 5 ? Case Physician: [...] procedure was Emergent. The indication for ?the receiver/laborer visit is ACS less than or equal [...] 3.5 guiding catheter and a 3.5 Fr [place] [employer] [address] ??20 Mhz using ?Manual pullback. ??Imaging [...] A premounted 3.00 x 22 mm Jeison Deuel (LOW) was deployed ? with a maximum [...] atmospheres. ??A premounted 3.00 x 08 mm Jeison Deuel (LOW) ? was deployed with a maximum [...] dose administered prior to arrival in the receiver/laborer. ?Recommended anti-platelet/anti-thrombotic regimen: ?Start aspirin 81 mg daily now and continue for 12 months then stop. ?Start clopidogrel 75 mg daily now and continue for indefinitely. ?These recommendations are made at the time of the intervention. Patient ?and provider preferences or a changing clinical situation may require ?modification of this regimen. Consult [facility] Interventional Cardiology for [...] able ?to start weaning his inotropes/vasopressors. A Gheens Colette catheter was ?placed demonstrating improvement in [...] ventricular assist device insertion, right heart ?catheterization, Gheens (flow directed cath) insertion, access site ?angiography, vascular ultrasound, venous line / sheath insert and vascular ?closure device. ? Vahe Marvin M.D. ? Electronically Signed by: Vahe Marvin M.D. ? Report Finalized: 07/29/2024 ??13:55 ? Report Last Ammended: 07/30/2024 ??10:15 ? Procedure Note Vahe Marvin MD - 07/30/2024 [facility] Cardiac Catheterization/Intervention Report Patient Name: Korey MontoyaToby Procedure Date: 07/29/2024 A #: [id number] Primary Physician: Vahe Marvin Case #: [id number] File Name: [id number] Catheterization Order Number: [id number] [facility] FinalReport [place], [place] Patient Name: Korey Montoya ID#:[id number] :1950 Procedure Date: July 29, 2024 Case [...] diagnostic procedure was Emergent. Theindication for the receiver/laborer visit is ACS less than or equal [...] 3.5 guiding catheter and a 3.5 Fr [place] [employer] [facility] [address] 20 Mhzusing Manual pullback. Imaging was [...] The priority for the procedure was Emergent.[facility] procedure was [...] The lesion was predilated with a 2.00mm [id number] MM balloon with a maximum inflation pressure of 12atmospheres. A premounted 3.00 x 22 mm [place] Deuel (LOW) wasdeployed with a maximum inflation pressure [...] A premounted 3.00 x 08 mm Jeison Deuel(LOW) was deployed with a maximum inflation pressure [...] dose administered prior to arrival in the receiver/laborer. Recommended anti-platelet/anti-thrombotic regimen: Start aspirin 81 mg daily now and continue for 12 months then stop. Start clopidogrel 75 mg daily now and continue for indefinitely. These recommendations are made at the time of the intervention.Patient and provider preferences or a changing clinical situation mayrequire modification of this regimen. Consult [facility] Interventional Cardiologyfor questions. [...] wereable to start weaning his inotropes/vasopressors. A Gheens Colette catheterwas placed demonstrating improvement in his [...] ventricular assist device insertion, right heart catheterization, Gheens (flow directed cath) insertion, access site angiography, vascular ultrasound, venous line / sheath insert andvascular closure device. Vahe Marvin M.D. Electronically Signed by: Vahe Marvin M.D. Report Finalized: 07/29/2024 13:55 Report Last Ammended: 07/30/2024 10:15 Vahe Marvin MD CARDIAC CATH ORDERAB LES * (ABNORMAL) BLOOD GAS, POC (07/29/2024 12:46 PM EST) Sodium, POC 139 135 - 145 mmol/L 07/30/2024 7:30 AM [facility] Potassium, POC 3.4(L) 3.5 - 5.0 mmol/L 07/30/2024 7:30 AM [facility] pH, POC 7.33(L) 7.35 - 7.45 07/30/2024 7:30 AM [facility] Ionized Calcium, POC 1.13(L) 1.15 - 1.33 mmol/L 07/30/2024 7:30 AM [facility] pCO2, POC 38 35 - 45 mmHg 07/30/2024 7:30 AM [facility] pO2, POC 94 85 - 104 mmHg 07/30/2024 7:30 AM [facility] Base Excess, POC -6.0(L) -3.0 - 3.0 mmol/L 07/30/2024 7:30 AM [facility] Hematocrit, POC 39.0(L) 40.5 - 48.5 %PCV 07/30/2024 7:30 AM [facility] Hemoglobin, POC 13.3(L) 13.7 - 16.5 g/dL 07/30/2024 7:30 AM [facility] Comment:The calculation of h emoglobin from hematocrit assumes a normal MCHC. Bicarbonate, POC 19.8(L) 20.0 - 26.0 mmol/L 07/30/2024 7:30 AM [facility] Carbon Dioxide, POC 21(L) 22 - 31 mmol/L 07/30/2024 7:30 AM [facility] Blood VENOUS BLOOD SPECIMEN / Unknown 07/29/2024 12:46 PM EST 07/30/2024 7:30 AM EST Vahe Marvin MD POINT OF CARE TEST O RDERABLES [facility] [place] [address] * (ABNORMAL) BLOOD GAS, POC (07/29/2024 12:12 PM EST) Sodium, POC 135 135 - 145 mmol/L 07/30/2024 7:30 AM [facility] Potassium, POC 3.8 3.5 - 5.0 mmol/L 07/30/2024 7:30 AM [facility] pH, POC 7.27(LLL) 7.35 - 7.45 07/30/2024 7:30 AM [facility] Ionized Calcium, POC 1.14(L) 1.15 - 1.33 mmol/L 07/30/2024 7:30 AM [facility] pCO2, POC 43 35 - 45 mmHg 07/30/2024 7:30 AM [facility] pO2, POC 131(H) 85 - 104 mmHg 07/30/2024 7:30 AM [facility] Base Excess, POC -7.0(L) -3.0 - 3.0 mmol/L 07/30/2024 7:30 AM [facility] Hematocrit, POC 36.0(L) 40.5 - 48.5 %PCV 07/30/2024 7:30 AM [facility] Hemoglobin, POC 12.2(L) 13.7 - 16.5 g/dL 07/30/2024 7:30 AM [facility] Comment:The calculation of h emoglobin from hematocrit assumes a normal MCHC. Bicarbonate, POC 19.7(L) 20.0 - 26.0 mmol/L 07/30/2024 7:30 AM [facility] Carbon Dioxide, POC 21(L) 22 - 31 mmol/L 07/30/2024 7:30 AM [facility] Blood VENOUS BLOOD SPECIMEN / Unknown 07/29/2024 12:12 PM EST 07/30/2024 7:30 AM EST Vahe Marvin MD POINT OF CARE TEST O RDERABLES [facility] [place] [address] documented in this encounter Visit Diagnoses Diagnosis [...] based off of anti-Xa levels per the [facility] Anti-Xa Algorithm and inform the ECM[facility] attending. [...] 20 mEq 100 mL/ hr [facility] Bag 07/30/2024 9:17 PM EST 20 [...] Routine documented in this encounter Care Teams Director Market Intelligence Relationship Specialty Start Date End Date Alexia Mtz APRN [address] [place] [id number] PCP - General Family Medicine 07/30/24 documented as of this encounter
--- OUTSIDE RECORDS SUMMARY | 2024-09-14 10:20 | XMS_ITS | Encounter Summary ---
Author Organization [facility] [place] [address] Care Team Providers Care Flight Engineer Helicopter Name Role Phone Yoel Artis Ute ALCALA Primary Care Provider [phone] Reason for Visit * Auth/Cert (Routine) Specialty Diagnoses / Procedures Referred By Conteleazar t Referred To Contact Diagnoses Anal spasm Fecal smearing Constipation, unspecified Rectal pain, fecal smearing Procedures PRO COLONOSCOPY, DIAGNOSTIC PRO COLONOSCOPY, BIOPSY PRO COLONOSCOPY, REMV LESN, SNARE COLONOSCOPY, DIAGNOSTIC (WRVU 3.26) Brandan Mcgovern MD [facility] [place]STROENTER[place] [address] [facility] Referral ID Status Reason Start Date Expiration Date Visits Re quested Visits Authorized [id number] 1 1 Encounter Details Date Type Department Care Team (Late st Contact Info) Description 08/30/2023 11:00 AM EST - 08/30/2023 12:00 PM EST [place] [address] Brandan Mcgovern MD [facility]STR[facility] [address] COLONOSCOPY, POLYPECTOMY, REMOVAL LESION BY SNARE (WRVU [...] occurs, please contact your Doctor. Please call [phone] before 8pm Mon-Fri with problems, questions or concerns. If you call after 8pm or on weekends, call the Hospital at [phone] and ask to speak to the Sample Preparation Supervisor special education curriculum specialist and the laundry operator finishing will contact that person for you. When should you call for help? Call [phone] anytime you think you may need emergency [...] Where can you learn more? [facility] View your After Visit Summary and more online at [email or web address] If you would like to provide feedback about your hospital experience, please call the Office of Patient and Family Relations at . If you have received this After Visit Summary in error, please immediately return it in person to the department, or notify the [facility] Privacy Office by calling toll free at between the hours of 8AM and 5PM to arrange for our retrieval of the documents at no cost to you. Content Version: 12.2 ?? [id number] [employer]. Care instructions adapted under license by [facility]. If you have questions about a medical condition or this instruction, always ask your healthcare professional. [employer] disclaims any warranty or liability for [...] evening. 04/17/2023 08/04/2024 nitroGLYcerin (NITROLINGUAL) 400 mcg/spray [place], Non-AerosolIndications:P roctalgia fugax,Fecal smearing,Constipation, unspecified constipation type [...] AM EST Office Visit Cardiology at [address] [phone] Mushtaq Murphy APRN documented as of this encounter Procedures Procedure Name Priority Date/Time Associated Diagnosis Comments SPECIMEN TO PATHOLOGY Routine 08/30/2023 11:23 AM EST SURGICAL PATHOLOGY REPORT Routine 08/30/2023 11:21 AM EST COLONOSCOPY Routine 08/30/2023 10:57 AM EST Colonoscopy, Remv Lesn, Snare ([id number]) 08/30/2023 10:44 AM EST Proctalgia fugax Fecal smearing Constipation, unspecified constipation type documented in this encounter Results * Specimen to Pathology (08/30/2023 11:23 AM EST) AP Specimen 08/30/2023 11:2 3 AM EST 08/30/2023 11:23 AM EST Narrative [facility] - 08/30/2023 11:23 AM EST Specimen requisition ordered. ??Separate Pathology report to follow Brandan Mcgovern MD PATHOLOGY/CYTOLOGY O JOSH Performing Organization Address [facility]/ZIP Co de Phone Number [facility] [place] [address] * Surgical Pathology Report (08/30/2023 11:21 AM EST) Final Diagnosis [id number] ? Location: 4T; EA12; A The signing pathologist has (i) examined the relevant preparation(s) for the specimen(s) and (ii) rendered or confirmed the diagnosis(es). . ?Surgical Pathology DIAGNOSIS A - Sigmoid colon polyp, resection (Multiple): - ??Tubular adenoma. CR-PX Electronically signed by: ?Blake ORTEGA PhD, Yulia Verified: ??09/08/2023 14:48 ??Pathologist Performed at: ??-[facility] Dept. of Pathology, [place] [address] Cash Applications Manager: Fercho Chan MD, AP, ??CLIA Certificate: [id number] SPECIMEN(S) SUBMITTED A - Sigmoid colon polyp, [...] EST Brandan Mcgovern MD PATHOLOGY/CYTOLOGY O JOSH [facility] [place] [address] [place] [address] * COLONOSCOPY (08/30/2023 10:57 AM EST) [facility] COLONOSCOPY [facility] Endoscopy Procedure Date: 08/30/2023 10:57 AM ? Patient Name: Korey Montoya ? Date of : 1950 ? Age: 73 ? Order #: [id number] ? Instrument Name: [id number] ? Procedure: ? Colonoscopy Indications: ? Rectal [...] preparation was evaluated ? using the BBPS ([place] Bowel ? Preparation Scale) with scores of: [...] RN) documented in this encounter Care Teams Flight Engineer Helicopter Relationship Specialty Start Date End Date Yoel Artis, FREDRICK [address] [place] [address] PCP - General Internal Medicine 11/18/22 07/29/24 documented as of this encounter
--- OUTSIDE RECORDS SUMMARY | 2024-09-14 10:20 | XMS_ITS | Encounter Summary ---
[place] [address] Care Team Providers Care Synthetic Plasterer Name Role Phone Yoel Artis FREDRICK Primary Care Provider [phone] Encounter Details Date Type Department Care Team (Late st Contact Info) Description 01/16/2024 Interpretation Only [facility] [address] [place] [address] Chaparro Montana MD [address] [place] [address] Social History Tobacco Use Types Packs/Day Years [...] AM EST Office Visit Cardiology at [address] [phone] Mushtaq Murphy APRN documented as of this encounter Procedures Procedure Name Priority Date/Time Associated Diagnosis Comments XR CHEST ONE VIEW STAT 01/16/2024 4:0 4 PM EDT documented in this encounter Results * XR Chest One View (01/16/2024 4:04 PM EDT) PT CLASS E RAD ADMITDTTM [id number] [facility] [place] RAD INFO [id number]^Jordy henry^Chaparro RAD EXAM DESC XCXR1^XR Chest 1 View^RIS [facility] [place] WORKSTATION ID [id number] [facility] [place] Anatomical Region Laterality Modality Chest N/A Radiographic [...] questions please contact the health child care team lead that requested your imaging first. ? Narrative [...] have questions please contactthe health child care team lead that requested your imaging first. Chaparro Montana MD IMG DX ORDERABLES documented in this encounter Visit Diagnoses Not on filedocumented in this encounter Care Teams Synthetic Plasterer Relationship Specialty Start Date End Date Yoel Artis APRN [address] [place] [address] PCP - General Internal Medicine 11/18/22 07/29/24 documented as of this encounter
--- OUTSIDE RECORDS SUMMARY | 2024-09-14 10:20 | XMS_ITS | Encounter Summary ---
[place] [address] Care Team Providers Care Poker Supervisor Name Role Phone Yoel Artis FREDRICK Primary Care Provider [phone] Encounter Details Date Type Department Care Team (Late st Contact Info) Description 07/28/2024 Interpretation Only [address] [phone] Quinten Coffey MD [address] [place] [address] Social History Tobacco Use Types Packs/Day Years [...] AM EST Office Visit Cardiology at [address] [address] Mushtaq Murphy APRN documented as of this encounter Procedures Procedure Name Priority Date/Time Associated Diagnosis Comments XR CHEST ONE VIEW STAT 07/28/2024 10: 22 AM EST documented in this encounter Results * XR Chest One View (07/28/2024 10:22 AM EST) PT CLASS E RAD ADMITDTTM [id number] RAD PT RAD INFO [id number]^Alexx ^Quinten RAD EXAM DESC XCXR1^XR Chest 1 [...] have questions please contact the health career portals teacher that requested your imaging first. ? Narrative [...] who have questions please contactthe health career portals teacher that requested your imaging first. Quinten Coffey MD IMG DX ORDERABLES documented in this encounter Visit Diagnoses Not on filedocumented in this encounter Care Teams Poker Supervisor Relationship Specialty Start Date End Date Yoel Artis APRN [address] [place] [address] PCP - General Internal Medicine 11/18/22 07/29/24 documented as of this encounter
--- OUTSIDE RECORDS SUMMARY | 2024-09-14 10:20 | XMS_ITS | Encounter Summary ---
Author Organization [facility] [place] [address] Care Team Providers Care Handbag Framer Name Role Phone Yoel Artis Ute ALCALA Primary Care Provider Encounter Details Date Type Department Care Team (Late st Contact Info) Description 01/16/2024 5:46 PM EDT - 01/16/2024 11:59 PM EDT Hospital Encounter [facility] [address] [place] [address] Chaparro Montana MD [address] [place] [address] Discharge Disposition: Home Social History Tobacco Use [...] evening. 04/17/2023 08/04/2024 nitroGLYcerin (NITROLINGUAL) 400 mcg/spray [place], Non-AerosolIndications:P roctalgia fugax,Fecal smearing,Constipation, unspecified constipation type 1 spray to anus for proctalgia fugax as needed, not to exceed once daily 12 g 06/01/2023 08/04/2024 documented as of this encounter Plan of Treatment Upcoming Encounters Date Type Department Care Team (Late st Contact Info) Description 10/01/2024 10:00 AM EST Office Visit Cardiology at [address] [address] Mushtaq Murphy APRN documented as of this encounter Procedures Procedure Name Priority Date/Time Associated Diagnosis Comments URINE CULTURE Routine 01/16/2024 4:00 PM EDT documented in this encounter Results * Urine culture (01/16/2024 4:00 PM EDT) Urine Culture No growth (Less than 1,000 cfu/ml). [facility] Urine 01/16/2024 4:00 PM EDT 01/16/2024 10:36 PM EDT Narrative Resulting Agency Comment Spec In Lab Chaparro Montana MD MICROBIOLOGY - [facility] ORDERABLES [facility] [place] [address] documented in this encounter Visit Diagnoses Not on filedocumented in this encounter Care Teams Handbag Framer Relationship Specialty Start Date End Date Yoel Artis APRN [address] [place] [address] PCP - General Internal Medicine 11/18/22 07/29/24 documented as of this encounter
--- OUTSIDE RECORDS SUMMARY | 2024-09-14 10:20 | XMS_ITS | Encounter Summary ---
Author Organization [facility] [place] [address] Care Team Providers Care Launch Engineer Name Role Phone Alexia Mtz FAMILY COURT COUNSELLOR Primary Care Provider [phone] Encounter Details Date Type Department Care Team (Late st Contact Info) Description 06/25/2024 Lab [place] [address] Aubrey Cali MD [address] [place] [address] Pyuria Social History Tobacco Use Types Packs/Day [...] AM EST Office Visit Cardiology at [address] [phone] Mushtaq Murphy APRN documented as of this encounter Procedures Procedure Name Priority Date/Time Associated Diagnosis Comments URINE CULTURE Routine 06/25/2024 11:55 AM EDT Pyuria documented in this encounter Results * Urine culture (06/25/2024 11:55 AM EDT) Urine Culture No growth 06/26/2024 12:22 PM EDT [facility] Urine URINE SPECIMEN OBTAINED BY CLEAN CATCH PROCEDURE / Unknown 06/25/2024 11:55 AM EDT 06/25/2024 5:18 PM EDT Aubrey Cali MD MICROBIOLOGY - GENER AL ORDERABLES [facility] [place] [address] documented in this encounter Visit Diagnoses Diagnosis Pyuria Other nonspecific finding on examination of urine documented in this encounter Care Teams Launch Engineer Relationship Specialty Start Date End Date Alexia Mtz, FAMILY COURT COUNSELLOR [address] [place] [address] PCP - General Family Medicine 07/30/24 documented as of this encounter
--- OUTSIDE RECORDS SUMMARY | 2024-09-14 10:20 | XMS_ITS | Encounter Summary ---
Author Organization [facility] [place] [address] Care Team Providers Care Nuisance Wildlife Control Operator Name Role Phone Yoel Artis APRN Primary Care Provider [phone] Encounter Details Date Type Department Care Team (Late st Contact Info) Description 03/01/2023 9:30 AM EDT - 03/01/2023 11:59 PM EDT Hospital Encounter [facility] [address] [place] [address] Yoel Artis APRN [address] [place] [address] Discharge Disposition: Home Social History Tobacco Use [...] AM EST Office Visit Cardiology at [address] [address] Mushtaq Murphy APRN documented as of this encounter Procedures Procedure Name Priority Date/Time Associated Diagnosis Comments PSA (ULTRASENSITIVE) Routine 03/01/2023 9:38 AM EDT documented in this encounter Results * (ABNORMAL) PSA (Ultrasensitive) (03/01/2023 9:38 AM EDT) Prostate Specific Antigen (Ultrasensitive) 5.09(H) 0.00 - 4.00 ng/mL [facility] Comment: PLEASE NOTE: The above reference [...] In Lab Yoel Artis APRN CHEMISTRY ORDERABLES [facility] [place] [address] documented in this encounter Visit Diagnoses Not on filedocumented in this encounter Care Teams Nuisance Wildlife Control Operator Relationship Specialty Start Date End Date Yoel Artis APRN [address] [place] [address] PCP - General Internal Medicine 11/18/22 07/29/24 documented as of this encounter
--- OUTSIDE RECORDS SUMMARY | 2024-09-14 10:20 | XMS_ITS | Encounter Summary ---
Author Organization [facility] Address [facility] [place] [address] Care Team Providers Care Puddler Helper Name Role Phone Yoel Artis Ute ALCALA Primary Care Provider [phone] Encounter Details Date Type Department Care Team (Late st Contact Info) Description 07/29/2024 Orders [place] [address] Susannah Watts [place] [facility] [address] Social History Tobacco Use Types Packs/Day Years Used Date Smoking Tobacco: Former Cigarettes Smokeless Tobacco: Never Alcohol Use Standard Drinks/Week Comments Not Currently 0 (1 standard drink = 0.6 oz pur e alcohol) [facility] Utilities Answer Date Recorded In the past 12 months has [employer], gas, oil, or water [employer] threatened to shut off services in [...] AM EST Office Visit Cardiology at [address] [phone] Mushtaq Murphy APRN documented as of this encounter Procedures Procedure Name Priority Date/Time Associated Diagnosis Comments ECHOCARDIOGRAM TRANSTHORACIC Routine 07/30/2024 1:41 AM EST documented in this encounter Results * Echocardiogram Transthoracic (07/30/2024 1:41 AM EST) Anatomical Region Laterality Modality Cardiac Other 07/30/2024 1:41 AM EST Narrative 07/30/2024 8:23 AM EST [address] [place] [address] ? Echocardiogram Report Name: KOREY BERMUDEZ ? Study Date: 07/30/2024 01:41 AM : 1950 ? Height: 168 cm Age: 74 yrs ? Weight: 5.9 kg Gender: Male ?BSA: 0.63 m2 Performed By: Beatris Ching MD Reason For Study: STEMI, [place] History: ASCVD, HTN, HLD Interpreting Fellow: Beatris Ching. Interpretation Summary This is a limited study performed by a fellow director of restaurant operations to evaluate for cardiogenic shock with impella [...] study available for comparison. Procedure Limited - 95076. Suboptimal quality. There is sinus bradycardia. Left [...] Note Kathleen Banda MD - 07/30/2024 [address] [place] [address] Echocardiogram Report Name: LARA KOREY Kyrie Study Date: 07/30/2024 01:41AM : 1950 Height: 168 cm Age: 74 yrs Weight: 5.9 kg Gender: Male BSA: 0.63 m2 Performed By: Beatris Ching MD Reason For Study: STEMI, VT History: ASCVD, HTN, HLD Interpreting Fellow: Beatris Ching. Interpretation Summary This is a limited study performed by a fellow director of restaurant operations to evaluate forcardiogenic shock with impella in. [...] study available for comparison. Procedure Limited - 90000. Suboptimal quality. There is sinus bradycardia. Left [...] on filedocumented in this encounter Care Teams Puddler Helper Relationship Specialty Start Date End Date Yoel Artis APRN [address] [place] [address] PCP - General Internal Medicine 11/18/22 07/29/24 documented as of this encounter
--- OUTSIDE RECORDS SUMMARY | 2024-09-14 10:20 | XMS_ITS | Encounter Summary ---
Author Organization [facility] [place] [address] Care Team Providers Care Academic Support Center Director Name Role Phone Yoel Artis APRN Primary Care Provider [phone] Reason for Referral * Consultation (Routine) - Closed Specialty Diagnoses / Procedures Referred By Theodore muro Referred To Contact Gastroenterology Diagnoses Anal spasm anal spasm Yoel Artis APRN [address] [place] [address] [facility] [address] [place] [address] Referral ID Status Reason Start Date Expiration Date V isits Requested Visits Authorized [id number] Closed Consult, Test & Treat PCP Updated and/or Approved 05/26/2023 05/25/2024 6 6 Encounter Details Date Type Department Care Team (Late st Contact Info) Description 05/26/2023 Transcribe Orders eDH Incoming Referrals [phone] Yoel Artis APRN [address] [place] [address] Anal spasm Social History Tobacco [...] 10:00 AM EST Office Visit Cardiology at [address] [phone] Mushtaq Murphy APRN Scheduled Referrals Name Type Priority Associated Diagnoses Order Schedule Referral to Gastroenterology Outpatient Referral Routine Anal spasm Ordered: 05/26/2023 documented as of this encounter Visit Diagnoses Diagnosis Anal spasm documented in this encounter Care Teams Academic Support Center Director Relationship Specialty Start Date End Date Yoel Artis APRN [address] [place] [address] PCP - General Internal Medicine 11/18/22 07/29/24 documented as of this encounter
--- OUTSIDE RECORDS SUMMARY | 2024-09-14 10:20 | XMS_ITS | Encounter Summary ---
Author Organization [facility] Address [facility] [place] [address] Care Team Providers Care Truck And Transport Mechanic Name Role Phone Yoel Artis FREDRICK Primary Care Provider [phone] Encounter Details Date Type Department Care Team (Late st Contact Info) Description 07/29/2024 [place] [phone] Ivan Hernandez MD [facility] [address] Social History Tobacco Use Types Packs/Day Years Used Date Smoking Tobacco: Former Cigarettes Smokeless Tobacco: Never Alcohol Use Standard Drinks/Week Comments Not Currently 0 (1 standard drink = 0.6 oz pur e alcohol) [facility] Utilities Answer Date Recorded In the past 12 months has [employer], gas, oil, or water [employer] threatened to shut off services in your [...] time in the past 12 m [place] [place], were you homeless or living in a [...] Hospital If Hospital to which patient presented= [facility]: ED Walk In Medical [...] Unfractionated Heparin Plan STEMI Alert called: Yes Machine Sprayer Activated by: Barrel Tester And Drainer Initial Disposition: Admit Machine Sprayer documented in this encounter Plan of Treatment Upcoming Encounters Date Type Department Care Team (Late st Contact Info) Description 10/01/2024 10:00 AM EST Office Visit Cardiology at [address] [address] Mushtaq Murphy APRN documented as of this encounter Visit Diagnoses Not on filedocumented in this encounter Care Teams Truck And Transport Mechanic Relationship Specialty Start Date End Date Yoel Artis APRN [address] [place] [address] PCP - General Internal Medicine 11/18/22 07/29/24 documented as of this encounter
--- OUTSIDE RECORDS SUMMARY | 2024-09-14 10:20 | XMS_ITS | Encounter Summary ---
Author Organization [facility] Address [facility] [place] [address] Care Team Providers Care Director Of Brand Marketing Name Role Phone Carola Artis APRN Primary Care Provider [phone] Encounter Details Date Type Department Care Team (Latest Contact Info) Description 11/30/2023 8:00 AM EDT TH Visit (TeleHealth) [place] [address] Carola Dangelo APRN [facility] [place] [address] Proctalgia fugax; Constipation, unspecified constipation type Social [...] Handout for Patients and Primary Care Providers [facility] Gastrointestinal Motility, Esophageal, and Swallowing Disorders Center What are functional bowel disorders? These are the most common type of gastrointestinal disorders in the [facility] [[email or web address]] The most common functional bowel disorder in [...] what is the impact? 15-20% of general [place] population has IBS or FD or both 2nd most common cause for lost work days (after common cold) in [place] Estimated $30 billion dollar cost to [place] economy per year These disorders can have [...] with immediate onset of symptoms after infection); director long term care symptoms are expected in [...] to you primary care provider and/or local senior quality assurance analyst and share this document. Treatment of functional [...] - this approach benefits most patients OTC (cpwu-apv-turbbvu) medications can be used for ongoing bothersome symptoms as listed below Your provider (PCP or local Gastroenterology provider or [facility] Gastroenterology provider) may decide to use [...] All-Bran psyllium buds, Metamucil, Konsyl, bulk psyllium ([employer] and [employer] stores) Specifically we recommend starting Metamucil or [...] but convincing medical evidence is still lacking Xmha-way-umowhcs supplements including probiotics are not typically evaluated [...] to decrease antibiotic-associated diarrhea and antibiotic-related infections Dcls-fya-Mclqlnh Medications for Functional Gut Disorders Based on [...] a stool softener that is safe for shelter usage (no risk of dependency) andthe dosage [...] (GERD) Often a combination of anti-nausea medications (kprw-yws-qqlactj or prescription) works better thanhigh doses of [...] for misuse/misinterpretation of this information Patient Resources [place] [employer] https://www.gastro.org/practice-guidance/an-lvefknk-pvkowp/ topic/giyqrvqzm-yedkr-rdexbdoo-ibs Badgut.org https://badgut.org/information-centre/i-s-psaxrubgi-topics/ibs/ AboutIBS.org https://www.aboutibs.org/ Uptodate.com https://www.uptodate.com/contents/qhhgcctaf-justm-dpnffbdu-blphlg-umb-wgcgwl documented in this encounter Progress Notes * [...] Take by mouth. nitroGLYcerin (NITROLINGUAL) 400 mcg/spray [place], Non-Aerosol 1 spray to anus for proctalgia fugax as needed, not to exceed once daily 12 g 0 No facility-administered medications prior to visit. Allergies: has No Known Allergies. Past Medical History: has a past medical history of ADHD, HLD (hyperlipidemia), HTN (hypertension),and Tremor. Past Surgical History: has a past surgical history that includes Hand surgery and Colonoscopy, Antonieta Pfeiffer ([id number]) (N/A, 08/30/2023). Family History: family history is [...] re-evaluation. The patient was located in [place] at the time of their visit. Carola Dangelo APRN [facility] [place] [address] documented in this encounter Miscellaneous Notes * Addendum Note - Carola Dangelo APRN - 11/30/2023 8:00 AM EDTAddended by: CAROLA DANGELO on: 11/30/2023 08:46 AM Modules accepted: Level of Service documented in this encounter Plan of Treatment Upcoming Encounters Date Type Department Care Team (Late st Contact Info) Description 10/01/2024 10:00 AM EST Office Visit Cardiology at [address] [address] Mushtaq Murphy APRN documented as of this encounter Visit Diagnoses Diagnosis Proctalgia fugax Anal spasm Constipation, unspecified constipation type documented in this encounter Care Teams Director Of Brand Marketing Relationship Specialty Start Date End Date Carola Artis APRN [address] [place] [address] PCP - General Internal Medicine 11/18/22 07/29/24 documented as of this encounter
--- OUTSIDE RECORDS SUMMARY | 2024-09-14 10:20 | XMS_ITS | Encounter Summary ---
Author Organization [facility] [place] [address] Care Team Providers Care Offline Cutter Name Role Phone Yoel Artis Ute ALCALA Primary Care Provider [phone] Encounter Details Date Type Department Care Team (Late st Contact Info) Description 07/29/2024 Interpretation Only [facility] [address] [place] [phone] Chaparro Montana MD [address] [place] [address] Social History Tobacco Use Types Packs/Day Years Used Date Smoking Tobacco: Former Cigarettes Smokeless Tobacco: Never Alcohol Use Standard Drinks/Week Comments Not Currently 0 (1 standard drink = 0.6 oz pur e alcohol) [facility] Utilities Answer Date Recorded In the past 12 months has [employer], gas, oil, or water [employer] threatened to shut off services in your [...] AM EST Office Visit Cardiology at [address] [address] Mushtaq Murphy APRN documented as of this encounter Procedures Procedure Name Priority Date/Time Associated Diagnosis Comments XR CHEST ONE VIEW STAT 07/29/2024 10: 50 AM EST documented in this encounter Results * XR Chest One View (07/29/2024 10:50 AM EST) PT CLASS E RAD ADMITDTTM [id number] RAD PT RAD MD INFO [id number]^Jordy henry^Chaparro RAD EXAM DESC XCXR1^XR Chest 1 [...] who have questions please contact the health date night caregiver that requested your imaging first. ? [...] patients who have questions please contactthe health date night caregiver that requested your imaging first. Chaparro Montana MD IMG DX ORDERABLES documented in this encounter Visit Diagnoses Not on filedocumented in this encounter Care Teams Offline Cutter Relationship Specialty Start Date End Date Yoel Artis APRN [address] [place] [address] PCP - General Internal Medicine 11/18/22 07/29/24 documented as of this encounter
--- OUTSIDE RECORDS SUMMARY | 2024-09-14 10:20 | XMS_ITS | Encounter Summary ---
Author Organization [facility] [place] [address] Care Team Providers Care Housing And Residence Life Director Name Role Phone Yoel Artis APRN Primary Care Provider Reason for Referral * Consultation (Routine) - Closed Specialty Diagnoses / Procedures Referred By Theodore muro Referred To Contact Gastroenterology Diagnoses Proctalgia fugax Fecal smearing Constipation, unspecified constipation type group Yoel Dangelo APRN [facility] [place] [address] Paulette Glynn, PhD [facility] [place] [address] Referral ID Status Reason Start Date Expiration Date V isits Requested Visits Authorized [id number] Closed Consult, Test & Treat 06/01/2023 05/31/2024 1 1 Reason for Visit * Consultation (Routine) - Closed Specialty Diagnoses / Procedures Referred By Theodore muro Referred To Contact Gastroenterology Diagnoses Anal spasm motility- anal spasms Yoel Artis APRN [address] [place] [address] [facility] [place] [address] [address] Referral ID Status Reason Start Date Expiration Date V isits Requested Visits Authorized [id number] Closed Consult, Test & Treat PCP Updated and/or Approved 11/18/2022 11/18/2023 6 6 Encounter Details Date Type Department Care Team (Latest Contact Info) Description 06/01/2023 8:00 AM EDT TH Visit (TeleHealth) [place] [address] Yoel Dangelo, COTTON SAMPLER [facility] [place] [address] Proctalgia fugax; Fecal smearing; Constipation, unspecified constipation [...] hear from us within 1 week: Clinic [phone] Motility Lab scheduling [phone] Endoscopy scheduling- [phone] Diagnostics: -Colonoscopy for rectal pain -Anorectal manometry [...] connection and our services, please visit the [facility] Behavioral health website at: [email or web address] Our hope is that through these classes, [...] your insurance company or the [facility] billing office ([email or web address]). Your insurance company may request a CPT code if you ask about [place]. [place] [address]. If you're interested in attending any of these classes or workshops, please reach out to our scheduling team via [facility] or phone ([phone]). You should start a fiber supplement if [...] Handout for Patients and Primary Care Providers [facility] Gastrointestinal Motility, Esophageal, and Swallowing Disorders Center What are functional bowel disorders? These are the most common type of gastrointestinal disorders in the [facility] The most common functional bowel disorder in the [facility] is irritable bowel syndrome (IBS) Irritable bowel [...] what is the impact? 15-20% of general [place] population has IBS or FD or both 2nd most common cause for lost work days (after common cold) in [place] Estimated $30 billion dollar cost to [place] economy per year These disorders can have [...] with immediate onset of symptoms after infection); terminal gauger symptoms are expected in most patients however [...] to you primary care provider and/or local malt house operator and share this document. Treatment of [...] - this approach benefits most patients OTC (wogk-icj-xiknnbo) medications can be used for ongoing bothersome [...] All-Bran psyllium buds, Metamucil, Konsyl, bulk psyllium ([employer] stores and [employer] stores) Specifically we recommend starting Metamucil or [...] but convincing medical evidence is still lacking Rjtg-gdx-vjkymxm supplements including probiotics are not typically evaluated [...] to decrease antibiotic-associated diarrhea and antibiotic-related infections Ukgo-vam-Lbhrehv Medications for Functional Gut Disorders Based on [...] stool softener that is safe for terminal gauger usage (no risk of dependency) andthe dosage [...] (GERD) Often a combination of anti-nausea medications (ikyf-lcu-ylqbcbh or prescription) works better thanhigh doses of [...] for misuse/misinterpretation of this information Patient Resources [place] [employer] https://www.gastro.org/practice-guidance/hp-lvupcnt-rntnis/ topic/cxtmmnyxt-iwhpk-odlxiebc-ibs Badgut.org https://badgut.org/information-centre/d-w-jovbqhjfv-topics/ibs/ AboutIBS.org https://www.aboutibs.org/ U[employer]od[employer]com https://www.uptodate.com/contents/aujqcbafj-odhsl-fyhuonoi-peaxmf-nve-ufmuun documented in this encounter Progress Notes * [...] weight loss Last colo 2017 at [facility] with no polyps. Current Regimen: Metamucil daily [...] recommendations above. The patient was located in [place] at the time of their visit. TIME SPENT WITH PATIENT Time spent reviewing records prior to this encounter on day of appointment: 2 minutes Time spent during encounter with patient including counselin minutes Time spent documenting encounter after office visit: 7 minutes Yoel Dangelo APRN [facility] [place] [address] documented in this encounter Plan of Treatment Upcoming Encounters Date Type Department Care Team (Late st Contact Info) Description 10/01/2024 10:00 AM EST Office Visit Cardiology at [address] [place] [address] Mushtaq Murphy APRN Scheduled Orders Name Type [...] type documented in this encounter Care Teams Housing And Residence Life Director Relationship Specialty Start Date End Date Yoel Artis APRN [address] [place] [address] PCP - General Internal Medicine 11/18/22 07/29/24 documented as of this encounter
--- OUTSIDE RECORDS SUMMARY | 2024-09-14 10:20 | XMS_ITS | Encounter Summary ---
[place] [address] Care Team Providers Care Terrestrial Ecologist Name Role Phone Yoel Artis Ute ALCALA Primary Care Provider [phone] Reason for Visit * Auth/Cert (Routine) Specialty Diagnoses / Procedures Referred By Theodore t Referred To Contact Diagnoses STEMI (ST elevation myocardial infarction) STEMI Procedures ER IPI Vahe Marvin MD [facility] [place] [address] [facility] Referral ID Status Reason Start Date Expiration Date Visits Re quested Visits Authorized [id number] 1 1 Encounter Details Date Type Department Care Team (Late st Contact Info) Description 07/29/2024 12:00 PM EST - 07/29/2024 12:54 PM EST Surgery [place] [address] Vahe Marvin MD [facility] [address] CARDIAC CATHETERIZATION Social History Tobacco Use Types Packs/Day Years Used Date Smoking Tobacco: Former Cigarettes Smokeless Tobacco: Never Alcohol Use Standard Drinks/Week Comments Not Currently 0 (1 standard drink = 0.6 oz pur e alcohol) [facility] Utilities Answer Date Recorded In the past 12 months has [employer] electric, gas, oil, or water company threatened [...] any time in the past 12 m [facility], were you homeless or [...] Korey Montoya Patient Age: 74 y.o. Language: Spanish Race: White Ethnicity: Not nor Admit date: [...] contact your inpatient physician through the [place] [facility] . Issues afterhours and on weekends will [...] P-level 6 at time of transfer to [facility]. CI initially 1.97, improved [...] the next year. Access was via right APPRENTICE INSTRUMENT TECHNICIAN and this sitewas clean, dry and intact [...] for Chest pain. Replaces: nitroGLYcerin 400 mcg/spray [place], Non-Aerosol 0.4 mg Quantity: 90 tablet Refills: [...] Refills: 0 STOPPED Medications nitroGLYcerin 400 mcg/spray [place], Non-Aerosol Commonly known as: NITROLINGUAL Replaced by: [...] of one year. After this time, your scarfer will determine if you need to continue [...] away. Stay on the phone. The emergency sanding machine operator or tender will tell you what to do. Nitroglycerin [...] appointments: During 8am-5pm Tuesday through Tuesday call [phone] to speak with a nurse in the cardiology clinic All other times call [phone] and ask to speak to the hair salon manager vacation sales advisor. Follow up Appointments: PCP Alexia Mtz, HYDRATOR OPERATOR [phone]. Please call to establish a follow up appointment within 1-2 weeks of discharge. Cardiology. Referral to heart failure has been sent. General Instructions None Future Appointments and Orders Future Orders Complete By Expires Referral to Cardiac Rehab [[id number] Custom] As directed Process Instructions: If no progress note charted, please enter Clinical details in comments. Scheduling Instructions: Questions: My question or request is: STEMI, PCI- cardiac rehab at [facility] Referral to Cardiology [REF12 Custom] As [...] of one year. After this time, your scarfer will determine if you need to continue [...] away. Stay on the phone. The emergency sanding machine operator or tender will tell you what to do. Nitroglycerin [...] appointments: During 8am-5pm Tuesday through Tuesday call [phone] to speak with a nurse in the cardiology clinic All other times call [phone] and ask to speak to the hair salon manager vacation sales advisor. Follow up Appointments: PCP Alexia Mtz, HYDRATOR OPERATOR [phone]. Please call to establish a follow up [...] home with 2 NAOMI. 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 He [...] Total time: 35 (tef) minutes Time IN/OUT: 1813-9540 ZAIDA DUBOSE PT Pager: [phone] Physical Therapy Inpatient Rehabilitation Department * Yrn Velazquez MD - 08/03/2024 10:38 AM EST CV HOSPITALIST 2 - [facility] DAILY PROGRESS NOTE Page [phone] to reach a provider 04/04 Admit Date: [...] Compared to the overnight study by the vacation sales advisor fellow the impella position is stable. 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 [facility] 07/29/24 Conclusions: * One vessel coronary artery disease (LAD) * Mild pulmonary hypertension * Elevated pulmonary capillary wedge pressure * Successful stent insertion of the proximal LAD lesion * See Dual Antiplatelet (DAPT) Recommendations above * Successful impella placement for cardiogenic shock. Telemetry: I have personally reviewed and interpreted the telemetry from the last 24 hours. [facility]: Korey Montoya is a [...] be determined OT: PCP Alexia Mtz, FREDRICK [phone] * Zaida Dubose, PT - 08/02/2024 2:08 [...] home with 2 NAOMI. 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 He drives. home to assist as needed. Precautions/Special Considerations: At risk to fall; recent STEMI Mobility and Positioning Recommendations: OOB to chair with 1 cg assist; rolling walker Pt to ambulate 3-4x/daily with 1 assist; walker or trial without device Please encourage up to chair for meal times as able. Pt seen for evaluation today in the [facility]. Pt in the bed at [...] Total time: 37 (eval) minutes Time IN/OUT: 1409-5624 ZAIDA DUBOSE PT Pager: [phone] Physical Therapy Inpatient Rehabilitation Department * Gagan [...] P-level 6 at time of transfer to [facility]. CI initially 1.97, improved [...] PCP: Alexia Mtz APRN PCP phone number: [phone] Date of Admission: 07/29/2024 ( Hospital Day [...] 07/29/24 1621 PHART 7.48* 7.44 7.38 7.37 CGT0CMS 29* 29* 34* 36 PO2ART 71* 109* 141* 71* SBJ4XFD 20.6 19.4* 19.5* 20.4 VBG (Venous Blood Gas) Recent Labs 07/29/24 1401 PHVEN 7.30* PO2VEN 39 QBV1IGK 20.1* Mixed Venous Sat No results for input(s): P8ZATH3 in the last 168 hours. Objective: Vitals [...] 07/29/24 1621 PHART 7.48* 7.44 7.38 7.37 IPD3HWQ 29* 29* 34* 36 PO2ART 71* 109* 141* 71* UXG8QJY 20.6 19.4* 19.5* 20.4 VBG (Venous Blood Gas) Recent Labs 07/29/24 1401 PHVEN 7.30* PO2VEN 39 BGZ2OLA 20.1* Mixed Venous Sat No results for input(s): H5HALT2 in the last 168 hours. Microbiology: Microbiology Results (Last 30 days) Procedure Component Value Units Date/Time Blood culture [[id number]] Collected: 07/29/24 160 Lab Status: Preliminary result Specimen: Blood, Venous Updated: 08/01/24 170 Blood Culture No growth at 72 hours Blood culture [[id number]] Collected: 07/29/241607 Lab Status: Preliminary result Specimen: Blood, Venous Updated: 08/01/24 170 Blood Culture No growth at 72 hours Imaging: Results for orders placed or performed during the hospital encounter of 07/29/24 XR Chest One View (Exam End: 07/29/2024 2:30 PM) Result Value WORKSTATION ID [id number] Impression 1. No pulmonary edema. 2. No pleural effusion. 3. No pneumothorax. Thank you for letting us participate in the care of this patient. If you are a health care provider and have any questions regarding this report, please contact the number below. For patients who have questions please contact the health respiratory care faculty that requested your imaging first. Electronically signed by: Chris Candelaria MD, [facility] ([phone]), at 07/29/2024 3:21 PM TTE ( 07/30/24) [...] Compared to the overnight study by the vacation sales advisor fellow the impella position is stable. The [...] to floor. Krystal Parker MD, [facility], [facility] Staff Operations Liaison specimen processor * Gagan Catherine MD - 08/01/2024 11:12 [...] P-level 6 at time of transfer to [facility]. CI initially 1.97, improved to 2.2 After impella. Received about 3 L of fluid during procedural course. Patient initially required norepinephrine 30, epinephrine 10, and vasopressin 0.04 for hemodynamic support, which was weaned upon arrival to [facility] to norepinephrine 20and levo [...] PCP: Alexia Mtz APRN PCP phone number: [phone] Date of Admission: 07/29/2024 ( Hospital Day [...] 07/29/24 1621 PHART 7.48* 7.44 7.38 7.37 QIM7LVF 29* 29* 34* 36 PO2ART 71* 109* 141* 71* IYT7VLA 20.6 19.4* 19.5* 20.4 VBG (Venous Blood Gas) Recent Labs 07/29/24 1401 PHVEN 7.30* PO2VEN 39 TPH5TJU 20.1* Mixed Venous Sat No results for input(s): N3CGJP0 in the last 168 hours. PA Catheter [...] 07/29/24 1621 PHART 7.48* 7.44 7.38 7.37 DFW5JBP 29* 29* 34* 36 PO2ART 71* 109* 141* 71* NRV4GQR 20.6 19.4* 19.5* 20.4 VBG (Venous Blood Gas) Recent Labs 07/29/24 1401 PHVEN 7.30* PO2VEN 39 GBS1DIK 20.1* Mixed Venous Sat No results for input(s): A0KCUF9 in the last 168 hours. Microbiology: Microbiology Results (Last 30 days) Procedure Component Value Units Date/Time Blood culture [[id number]] Collected: 07/29/241607 Lab Status: Preliminary result Specimen: Blood, Venous Updated: 07/31/241700 Blood Culture No growth at 48 hours Blood culture [[id number]] Collected: 07/29/241607 Lab Status: Preliminary result Specimen: Blood, Venous Updated: 07/31/241700 Blood Culture No growth at 48 hours Imaging: Results for orders placed or performed during the hospital encounter of 07/29/24 XR Chest One View (Exam End: 07/29/2024 2:30 PM) Result Value WORKSTATION ID [id number] Impression 1. No pulmonary edema. 2. No pleural effusion. 3. No pneumothorax. Thank you for letting us participate in the care of this patient. If you are a health care provider and have any questions regarding this report, please contact the number below. For patients who have questions please contact the health respiratory care faculty that requested your imaging first. Electronically signed by: Chris Candelaria MD, [facility] ([phone]), at 07/29/2024 3:21 PM TTE ( 07/30/24) [...] Compared to the overnight study by the vacation sales advisor fellow the impella position is stable. The [...] questions answered. Krystal Parker MD, [facility] Staff Operations Liaison specimen processor * Krystal Parker MD - 07/31/2024 1:06 [...] P-level 6 at time of transfer to [facility]. CI initially 1.97, improved to 2.2 After impella. Received about 3 L of fluid during procedural course. Patient initially required norepinephrine 30, epinephrine 10, and vasopressin 0.04 for hemodynamic support, which was weaned upon arrival to [facility] to norepinephrine 20and levo [...] PCP: Alexia Mtz APRN PCP phone number: [phone] Date of Admission: 07/29/2024 ( Hospital Day [...] 0057 07/29/24 1621 PHART 7.44 7.38 7.37 YPO1MPL 29* 34* 36 PO2ART 109* 141* 71* BTV3HRE 19.4* 19.5* 20.4 VBG (Venous Blood Gas) Recent Labs 07/29/24 1401 PHVEN 7.30* PO2VEN 39 RPQ6UNU 20.1* Mixed Venous Sat No results for input(s): Z9CRAE5 in the last 168 hours. PA Catheter [...] 0057 07/29/24 1621 PHART 7.44 7.38 7.37 YII7MYR 29* 34* 36 PO2ART 109* 141* 71* QXK8DLR 19.4* 19.5* 20.4 VBG (Venous Blood Gas) Recent Labs 07/29/24 1401 PHVEN 7.30* PO2VEN 39 JXZ0BGV 20.1* Mixed Venous Sat No results for input(s): D5JNGW9 in the last 168 hours. Microbiology: Microbiology Results (Last 30 days) Procedure Component Value Units Date/Time Blood culture [[id number]] Collected: 07/29/241607 Lab Status: Preliminary result Specimen: Blood, Venous Updated: 07/30/241700 Blood Culture No Growth at 18-24 hrs. Blood culture [[id number]] Collected: 07/29/241607 Lab Status: Preliminary result Specimen: Blood, Venous Updated: 07/30/241700 Blood Culture No Growth at 18-24 hrs. Imaging: Results for orders placed or performed during the hospital encounter of 07/29/24 XR Chest One View (Exam End: 07/29/2024 2:30 PM) Result Value WORKSTATION ID [id number] Impression 1. No pulmonary edema. 2. No pleural effusion. 3. No pneumothorax. Thank you for letting us participate in the care of this patient. If you are a health care provider and have any questions regarding this report, please contact the number below. For patients who have questions please contact the health respiratory care faculty that requested your imaging first. Electronically signed by: Chris Candelaria MD, [facility] ([phone]), at 07/29/2024 3:21 PM TTE ( 07/30/24) [...] Compared to the overnight study by the vacation sales advisor fellow the impella position is stable. The [...] work to optimize volume status while continuing emschyb-gvegwi-jpbsjecqkx therapies at this time. Obtain comprehensive TTE. [...] P-level 6 at time of transfer to [facility]. CI initially 1.97, improved to 2.2 After impella. Received about 3 L of fluid during procedural course. Patient initially required norepinephrine 30, epinephrine 10, and vasopressin 0.04 for hemodynamic support, which was weaned upon arrival to [facility] to norepinephrine 20and levo [...] PCP: Yoel Artis APRN PCP phone number: [phone] Date of Admission: 07/29/2024 ( Hospital Day [...] 0057 07/29/24 1621 PHART 7.44 7.38 7.37 UEU3PZK 29* 34* 36 PO2ART 109* 141* 71* IIP8XAI 19.4* 19.5* 20.4 VBG (Venous Blood Gas) Recent Labs 07/29/24 1401 PHVEN 7.30* PO2VEN 39 DAA4SEZ 20.1* Lactate ( Last 12 hours) 1.3 >> 1.2 Mixed Venous Sat No results for input(s): Y3APKJ4 in the last 168 hours. PA Catheter [...] 0057 07/29/24 1621 PHART 7.44 7.38 7.37 OEQ6HTW 29* 34* 36 PO2ART 109* 141* 71* BFV5WOC 19.4* 19.5* 20.4 VBG (Venous Blood Gas) Recent Labs 07/29/24 1401 PHVEN 7.30* PO2VEN 39 MAR2QPU 20.1* Mixed Venous Sat No results for input(s): F4TGGO6 in the last 168 hours. Microbiology: Microbiology Results (Last 30 days) Procedure Component Value Units Date/Time Blood culture [[id number]] Collected: 07/29/24 1608 Lab Status: In process Specimen: Blood, Venous Updated: 07/29/24 1626 Blood culture [[id number]] Collected: 07/29/24 1608 Lab Status: In process Specimen: Blood, Venous Updated: 07/29/24 1615 Imaging: Results for orders placed or performed during the hospital encounter of 07/29/24 XR Chest One View (Exam End: 07/29/2024 2:30 PM) Result Value WORKSTATION ID [id number] Impression 1. No pulmonary edema. 2. No pleural effusion. 3. No pneumothorax. Thank you for letting us participate in the care of this patient. If you are a health care provider and have any questions regarding this report, please contact the number below. For patients who have questions please contact the health respiratory care faculty that requested your imaging first. Medications Scheduled [...] problems to display. History of Present Illness: Koery Montoya is a 74 y.o. male [...] P-level 6 at time of transfer to [facility]. CI initially 1.97, improved to 2.2 After impella. Received about 3 L of fluid during procedural course. Patient initially required norepinephrine, epinephrine, and vasopressin for hemodynamic support, which was weaned upon arrival to [facility] to norepinephrine 20 and [...] (WRVU 4.57) performed by Brandan Mcgovern MD [facility] ENDOSCOPY Significant Family History: Family History [...] mouth. Past Week nitroGLYcerin (NITROLINGUAL) 400 mcg/spray [place], Non-Aerosol 1 spray to anus for proctalgia [...] 3.5 guiding catheter and a 3.[address] [facility] [address] 20 Mhz using Manual pullback. Imaging [...] for the procedure was Emergent. The [facility] indication for the procedure was [...] A premounted 3.00 x 22 mm [place] Zapata (LOW) was deployed with a maximum inflation [...] atmospheres. A premounted 3.00 x 08 mm [place] Zapata (LOW) was deployed with a maximum inflation [...] a limited study performed by a fellow vacation sales advisor to evaluate for cardiogenic shock with impella [...] Compared to the overnight study by the vacation sales advisor fellow the impella position is stable. The [...] PCP: Yoel Artis APRN PCP phone number: [phone] Date of Admission: 07/29/2024 ( Hospital Day [...] (WRVU 4.57) performed by Brandan Mcgovern MD [facility] ENDOSCOPY Family History Family History Problem [...] Blood Gas) No results for input(s): PHART, UFA3QON, PO2ART, YPR0BNP, LACTATEVEN, EZZ7JYX, PFRATIOART2 in the last 168 hours. VBG (Venous Blood Gas) Recent Labs 07/29/24 1401 PHVEN 7.30* PO2VEN 39 LJA6HSL 20.1* Mixed Venous Sat No results for input(s): W7GMSG0 in the last 168 hours. PA Catheter [...] Blood Gas) No results for input(s): PHART, BPU8FIG, PO2ART, SLP0OWV, LACTATEVEN, GSW7SWI, PFRATIOART2 in the last 168 hours. VBG (Venous Blood Gas) Recent Labs 07/29/24 1401 PHVEN 7.30* PO2VEN 39 ZYJ0RSL 20.1* Mixed Venous Sat No results for input(s): Q2KEQJ5 in the last 168 hours. Microbiology: Microbiology [...] hemodynamically tenuous but improving upon admission to [facility], requiring hemodynamic support with norepinephrine and vasopressin at time of admission along with mechanical support with Impella device. Reassuringly, he demonstrates decreasing pressor requirements since admission to [facility], with epinephrine completely weaned. [...] Bernardo Amos MD Internal Medicine, PGY-3 Cardiology, [facility] 07/29/24 3:14 PM Cardiology [...] MD, FACP, FACC Section of Cardiovascular Medicine [facility] Valve Inserterperformance specialist [facility] This patient meets or has met [...] to the planned procedure. Hand Hygiene: The filler block inserter remover did perform hand hygiene prior to arterial [...] ease. Good wave form. Ivan Hernandez MD Parts Room Clerk Associated attestation - Rolando Yeh MD [...] in an outpatient cardiac rehabilitation program at [facility] was discussed. Patient agrees to a [...] MEDICARE Payor: AARP MANAGED MEDICARE / Plan: [facility]TE / Product [...] Date of Discharge: 08/04/2024 Gaby Wong RN, [phone] * Initial Assessments - Char Meza OT [...] (WRVU 4.57) performed by Brandan Mcgovern MD [facility] ENDOSCOPY Social History: Patient lives with his . Home Setup: 2 NAOMI to a 1 level home. DME: none Baseline ADL/Mobility: Independent with ADLs and IADLs. Enjoys walking. able assist as needed. Precautions/Special Considerations: Full code. Risk for falls. Subjective: I have access to an [employer] gym. (Educated to wait for MD to [...] evaluation only Total Minutes, Occupational Therapy: 14 (3446-3023 (evaluation)) 2017 OT Evaluation Code Rationale: Diagnosis [...] and measurable assessment of functional outcome. Pager: [phone] Char Meza OT 08/03/2024 Occupational Therapy Rehabilitation [...] (Interventions Implemented as Appropriate) Flowsheets (Taken 08/01/2024 1473) Outcome Summary: A+O, no pain. NSR. MAP [...] Procedure Note: Patient Name: Korey Montoya : [id number] MR#: [id number] Case Date: 07/31/2024 Hoof Trimmer: Surgeons and Role: * Maldonado Luis MD - Primary * Quinten Charles PA - Physician Change Control Analyst Preoperative diagnosis: shock, impella Postoperative diagnosis: * same * Procedure(s) performed: Impella removal form right APPRENTICE INSTRUMENT TECHNICIAN Access: Right APPRENTICE INSTRUMENT TECHNICIAN A time-out was conducted prior to the [...] EST Office of Care Management Initial Assessment Kellye Melgar RN reviewed record and discussed patient [...] surrogate would be surrogate decision maker per [place] surrogate decision making law. (Only good for 180 days) Any patient receiving care in [place] must abide by [place] law. The hierarchy for surrogate decision making [...] it) Home Address confirmed as: Mailing Address: [address] [address] Physical Address: [address] [place] [address] Social & Family Supports: All names listed [...] points: Addiction likely Health/Prescription Coverage: Primary Insurance: [facility] MANAGED MEDICARE Payor: AARP MANAGED MEDICARE / Plan: [facility] MANAGED MEDICARE COMPLETE / Product Type: *No Product type* / Secondary Insurance: N/A ; Prescription Coverage: Yes Preferred Pharmacy: [address] - [address] [address] [place] Status: Patient is a : No Primary Care Provider confirmed: Alexia Mtz, HYDRATOR OPERATOR [phone] Patient/Caregiver Goals of Treatment: return home Potential [...] 07/29/2024 6:25 PM EST Pt arrived from manager cath lab @ 1400. CXR and EKG completed. Impella [...] Procedure Note: Patient Name: Korey Montoya : [id number] MR#: [id number] Case Date: 07/29/2024 Hoof Trimmer: Surgeons and Role: * Vahe Marvin MD - Primary * Susannah Watts PA - Physician Change Control Analyst Preoperative diagnosis: STEMI Postoperative diagnosis: * STEMI, LAD Artery * * Cardiogenic Shock * Procedure(s) performed: [facility] Coronary angiogram Stent insertion coronary IVUS coronary Venous line insert [facility] [place] Colette Catheter Vascular closure device Ventricular assist [...] x 22 mm to 14 deonna JEISON Zapata with LIZ 3 flow. Residual distal disease at distal stent, overlapping distal stent was inserted with 3.0 x 8 mm JEISON Zapata. Systolic's in the 80's sustained. Patient re [...] AM EST Office Visit Cardiology at [address] [phone] Mushtaq Murphy, FREDRICK Scheduled Orders Name Type [...] HEMATOLOGY ORDERABLE S [facility] [place] [address] * Magnesium (08/04/2024 6:08 AM EST) Magnesium 0.85 0.69 - 1.07 mMol/L 08/04/2024 7:07 AM [facility] Blood VENOUS BLOOD SPECIMEN / Unknown Venipuncture / Unknown 08/04/2024 6:08 AM EST 08/04/2024 6:19 AM EST Bridgette Stauffer MD CHEMISTRY ORDERABLES [facility] [place] [address] * Basic Metabolic Panel (08/04/2024 6:08 AM [...] 5 - 15 mMol/L 08/04/2024 7:07 AM [facility] Calcium 8.5 8.5 - 10.5 mg/dL 08/04/2024 7:07 AM [facility] Est Glomerular Filtration Rate - Male 74 mL/min/1. 73 m?? 08/04/2024 7:07 AM [facility] Comment: This [...] MD CHEMISTRY ORDERABLES [facility] [place] [address] * (ABNORMAL) CBC (with Diff) (08/03/2024 5:16 AM EST) White Blood Cell 7.85 4.00 - 9.50 x10(3)/mc L 08/03/2024 5:29 AM [facility] Red Blood Cell 4.43(L) 4.58 - 5.54 x10(6)/mc L 08/03/2024 5:29 AM [facility] Hemoglobin 11.8(L) 13.7 - 16.5 g/dL 08/03/2024 5:29 AM [facility] Hematocrit 35.9(L) 40.5 - 48.5 % 08/03/2024 5:29 AM [facility] Mean Cell Volume 81.0(L) 82.9 - 93.1 fL 08/03/2024 5:29 AM [facility] Mean Cell Hemoglobin 26.6(L) 27.5 - 32.1 pg 08/03/2024 5:29 AM [facility] Mean Cell Hemoglobin Concentration 32.9 32.0 - 35.7 g/dL 08/03/2024 5:29 AM [facility] Platelet 142(L) 145 - 357 x10(3)/mc L 08/03/2024 5:29 AM [facility] Mean Platelet Volume 10.5 7.6 - 12.9 fL 08/03/2024 5:29 AM [facility] RDW Standard Deviation 42.5 36.0 - 45.0 fL 08/03/2024 5:29 AM [facility] RDW coefficient of variation 14.2(H) 11.4 - 13.8 % 08/03/2024 5:29 AM [facility] NRBC% auto 0.0 % 08/03/2024 5:29 AM [facility] NRBC Absolute <0.01 <0.01 x10(3)/mc L 08/03/2024 5:29 AM [facility] Neutrophil % 75.2 % 08/03/2024 5:29 AM [facility] Neutrophil Absolute (ANC) - Automated 5.91 1.70 - 6.10 x10(3)/mc L 08/03/2024 5:29 AM [facility] Lymph % 13.4 % 08/03/2024 5:29 AM [facility] Lymph Absolute 1.05 0.90 - 3.20 x10(3)/mc L 08/03/2024 5:29 AM [facility] LABORATORY Monocyte % 9.0 % 08/03/2024 5:29 AM [facility] Monocyte Absolute 0.71 0.30 - 0.90 x10(3)/mc L 08/03/2024 5:29 AM [facility] Eos % 1.7 % 08/03/2024 5:29 AM [facility] Eos Absolute 0.13 0.00 - 0.40 x10(3)/mc L 08/03/2024 5:29 AM [facility] Basophil % 0.4 % 08/03/2024 5:29 AM [facility] Baso Absolute <0.04 0.00 - 0.10 x10(3)/mc L 08/03/2024 5:29 AM EST [facility] Immature Gran % 0.3 % 5:29 AM [facility] Immature Gran Absolute <0.04 0.00 - 0.04 x10(3)/mc L 08/03/2024 5:29 AM [facility] Blood VENOUS BLOOD SPECIMEN / Unknown Venipuncture / Unknown 08/03/2024 5:16 AM EST 08/03/2024 5:23 AM EST Bridgette Stauffer MD HEMATOLOGY ORDERABLE S Performing Organization Address City/[facility]/ZIP Co de Phone Number [facility] [place] [address] * Magnesium (08/03/2024 5:16 AM EST) Pathologist [facility] Magnesium 0.89 0.69 - 1.07 mMol/L 08/03/2024 5:56 AM [facility] Blood VENOUS BLOOD SPECIMEN / Unknown Venipuncture / Unknown 08/03/2024 5:16 AM EST 08/03/2024 5:23 AM EST Bridgette Stauffer MD CHEMISTRY ORDERABLES Performing Organization Address City/[facility] Co de Phone Number [facility] [place] [address] * (ABNORMAL) Basic Metabolic Panel (08/03/2024 5:16 AM EST) Glucose 98 65 - 199 mg/dL 08/03/2024 5:56 AM [facility] Comment:Glucose Concentratio n >=200 mg/dL plus symptoms is consistent with Diabetes Mellitus. Blood Urea Nitrogen 16 10 - 20 mg/dL 08/03/2024 5:56 AM [facility] Creatinine 0.85 0.80 - 1.50 mg/dL 08/03/2024 5:56 AM [facility] Sodium 137 135 - 145 mMol/L 08/03/2024 5:56 AM EST [facility] Potassium 4.5 3.5 - 5.0 mMol/L 08/03/2024 5:56 AM [facility] Chloride 106 98 - 107 mMol/L 08/03/2024 5:56 AM [facility] Carbon Dioxide 21(L) 22 - 31 mMol/L 08/03/2024 5:56 AM [facility] Anion Gap 10 5 - 15 mMol/L 08/03/2024 5:56 AM [facility] Calcium 8.3(L) 8.5 - 10.5 mg/dL 08/03/2024 5:56 AM [facility] Est Glomerular Filtration Rate - Male 92 mL/min/1. 73 m?? 08/03/2024 5:56 AM [facility] Comment: This [...] MD CHEMISTRY ORDERABLES [facility] [place] [address] * POC, GLUCOSE (08/02/2024 7:47 AM EST) Glucometer, POC 89 65 - 199 mg/dL 08/02/2024 7:47 AM EST [facility] Comment:Supplemental ranges: <140 mg/dL before meals <180 mg/dL all other times of the day. Blood CAPILLARY BLOOD / Unknown 08/02/2024 7:47 AM EST 08/02/2024 7:47 AM EST Krystal Parker MD POINT OF CARE TEST O RDERABLES [facility] [place] [address] * (ABNORMAL) CBC (with Diff) (08/02/2024 4:20 AM EST) White Blood Cell 8.51 4.00 - 9.50 x10(3)/mc L 08/02/2024 4:50 AM [facility] Red Blood Cell 4.41(L) 4.58 - 5.54 x10(6)/mc L 08/02/2024 4:50 AM [facility] Hemoglobin 12.2(L) 13.7 - 16.5 g/dL 08/02/2024 4:50 AM [facility] Hematocrit 35.8(L) 40.5 - 48.5 % 08/02/2024 4:50 AM [facility] Mean Cell Volume 81.2(L) 82.9 - 93.1 fL 08/02/2024 4:50 AM [facility] Mean Cell Hemoglobin 27.7 27.5 - 32.1 pg 08/02/2024 4:50 AM [facility] Mean Cell Hemoglobin Concentration 34.1 32.0 - 35.7 g/dL 08/02/2024 4:50 AM [facility] Platelet 111(L) 145 - 357 x10(3)/mc L 08/02/2024 4:50 AM [facility] Mean Platelet Volume 11.1 7.6 - 12.9 fL 08/02/2024 4:50 AM [facility] RDW Standard Deviation 41.9 36.0 - 45.0 fL 08/02/2024 4:50 AM [facility] RDW coefficient of variation 14.1(H) 11.4 - 13.8 % 08/02/2024 4:50 AM [facility] NRBC% auto 0.0 % 08/02/2024 4:50 AM [facility] NRBC Absolute <0.01 <0.01 x10(3)/mc L 08/02/2024 4:50 AM [facility] Neutrophil % 77.7 % 08/02/2024 4:50 AM [facility] Neutrophil Absolute (ANC) - Automated 6.62(H) 1.70 - 6.10 x10(3)/mc L 08/02/2024 4:50 AM [facility] Lymph % 11.9 % 08/02/2024 4:50 AM [facility] Lymph Absolute 1.01 0.90 - 3.20 x10(3)/mc L 08/02/2024 4:50 AM [facility] Monocyte % 8.2 % 08/02/2024 4:50 AM [facility] Monocyte Absolute 0.70 0.30 - 0.90 x10(3)/mc L 08/02/2024 4:50 AM [facility] Eos % 1.4 % 08/02/2024 4:50 AM [facility] Eos Absolute 0.12 0.00 - 0.40 x10(3)/mc L 08/02/2024 4:50 AM [facility] Basophil % 0.4 % 08/02/2024 4:50 AM [facility] Baso Absolute <0.04 0.00 - 0.10 x10(3)/mc L 08/02/2024 4:50 AM [facility] Immature Gran % 0.4 % 4:50 AM [facility] Immature Gran Absolute <0.04 0.00 - 0.04 x10(3)/mc L 08/02/2024 4:50 AM [facility] Blood VENOUS BLOOD SPECIMEN / Unknown Venipuncture / Unknown 08/02/2024 4:20 AM EST 08/02/2024 4:37 AM EST Bridgette Stauffer MD HEMATOLOGY ORDERABLE S [facility] [place] [address] * Magnesium (08/02/2024 4:20 AM EST) Magnesium 0.79 0.69 - 1.07 mMol/L 08/02/2024 5:06 AM [facility] Blood VENOUS BLOOD SPECIMEN / Unknown Venipuncture / Unknown 08/02/2024 4:20 AM EST 08/02/2024 4:37 AM EST Bridgette Stauffer MD CHEMISTRY ORDERABLES Performing Organization Address City/[facility]/ZIP Co de Phone Number [facility] [place] [address] * (ABNORMAL) Basic Metabolic Panel (08/02/2024 4:20 AM EST) Glucose 110 65 - 199 mg/dL 08/02/2024 5:06 AM [facility] Comment:Glucose Concentratio n >=200 mg/dL plus symptoms is consistent with Diabetes Mellitus. Blood Urea Nitrogen 12 10 - 20 mg/dL 08/02/2024 5:06 AM [facility] Creatinine 0.90 0.80 - 1.50 mg/dL 08/02/2024 5:06 AM [facility] Sodium 139 135 - 145 mMol/L 08/02/2024 5:06 AM [facility] Potassium 4.0 3.5 - 5.0 mMol/L 08/02/2024 5:06 AM [facility] Chloride 108(H) 98 - 107 mMol/L 08/02/2024 5:06 AM [facility] Carbon Dioxide 23 22 - 31 mMol/L 08/02/2024 5:06 AM [facility] Anion [...] Stauffer MD CHEMISTRY ORDERABLES Performing Organization Address City/[facility]/ZIP Co de Phone Number [facility] [place] [address] * Potassium (08/01/2024 8:39 PM EST) Potassium 4.0 3.5 - 5.0 mMol/L 08/01/2024 9:21 PM EST [facility] Blood VENOUS BLOOD SPECIMEN / Unknown Venipuncture / Unknown 08/01/2024 8:39 PM EST 08/01/2024 8:51 PM EST Aubree Silverio MD CHEMISTRY ORDERABL ES [facility] [place] [address] * POC, GLUCOSE (08/01/2024 8:35 PM EST) Glucometer, POC 112 65 - 199 mg/dL 08/01/2024 8:36 PM EST [facility] Comment:Supplemental ranges: <140 mg/dL before meals <180 mg/dL all other times of the day. Blood CAPILLARY BLOOD / Unknown 08/01/2024 8:35 PM EST 08/01/2024 8:36 PM EST Krystal Parker MD POINT OF CARE TEST O RDERASHAY [facility] [place] [address] * POC, GLUCOSE (08/01/2024 4:55 PM EST) Glucometer, POC 99 65 - 199 mg/dL 08/01/2024 4:56 PM EST [facility] Comment:Supplemental ranges: <140 mg/dL before meals <180 mg/dL all other times of the day. Blood CAPILLARY BLOOD / Unknown 08/01/2024 4:55 PM EST 08/01/2024 4:56 PM EST Krystal Parker MD POINT OF CARE TEST O JOSH Performing Organization Address [facility]/ZIP Co de Phone Number [facility] [place] [address] * POC, GLUCOSE (08/01/2024 12:42 PM EST) Glucometer, POC 130 65 - 199 mg/dL 08/01/2024 12:43 PM EST [facility] Comment:Supplemental ranges: <140 mg/dL before meals <180 mg/dL all other times of the day. Blood CAPILLARY BLOOD / Unknown 08/01/2024 12:42 PM EST 08/01/2024 12:43 PM EST Krystal Parker MD POINT OF CARE TEST O JOSH Performing Organization Address City/[facility]/ZIP Co de Phone Number [facility] [place] [address] * (ABNORMAL) Cooximetry, POC (08/01/2024 10:45 AM EST) pO2, Coox 32 mmHg 08/01/2024 10:48 AM [facility] Hemoglobin, Coox 12.9(L) 13.7 - 16.5 g/dL 08/01/2024 10:48 AM [facility] Oxyhemoglobin, Coox 66.7 % 08/01/2024 10:48 AM [facility] Carboxyhemoglo bin, Coox 1.1 % 08/01/2024 10:48 AM [facility] Comment: Nonsmokers: 0.5-1.5% COHB ?? Smokers: Variable ??but usually less than 10% ?? Toxic: 20-30% COHB ?? Lethal: Greater than 60% COHB Methemoglobin, Coox 0.3 <=1.5 % 08/01/2024 10:48 AM [facility] Blood (Mixed Venous) 08/01/2024 10:45 AM EST 08/01/2024 10:48 AM EST Krystal Parker MD POINT OF CARE TEST O RDERABLES [facility] [place] [address] * Potassium (08/01/2024 8:20 AM EST) Potassium 4.0 3.5 - 5.0 mMol/L 08/01/2024 10:17 AM EST [facility] Blood ARTERIAL BLOOD / Unknown Venipuncture / Unknown 08/01/2024 8:20 AM EST 08/01/2024 8:30 AM EST Aubree Silverio MD CHEMISTRY ORDERABL ES [facility] [place] [address] * POC, GLUCOSE (08/01/2024 7:44 AM EST) Pathologist [facility] Glucometer, POC 86 65 - 199 mg/dL 08/01/2024 7:44 AM EST [facility] Comment:Supplemental ranges: <140 mg/dL before meals <180 mg/dL all other times of the day. Blood CAPILLARY BLOOD / Unknown 08/01/2024 7:44 AM EST 08/01/2024 7:44 AM EST Krystal Parker MD POINT OF CARE TEST O RDERABLES [facility] [place] [address] * (ABNORMAL) CBC (with Diff) (08/01/2024 4:18 AM EST) [facility] White Blood Cell 8.51 4.00 - 9.50 x10(3)/mc L 08/01/2024 4:53 AM [facility] Red Blood Cell 4.12(L) 4.58 - 5.54 x10(6)/mc L 08/01/2024 4:53 AM [facility] Hemoglobin 11.2(L) 13.7 - 16.5 g/dL 08/01/2024 4:53 AM [facility] Hematocrit 33.8(L) 40.5 - 48.5 % 08/01/2024 4:53 AM [facility] Mean Cell Volume 82.0(L) 82.9 - 93.1 fL 08/01/2024 4:53 AM [facility] Mean Cell Hemoglobin 27.2(L) 27.5 - 32.1 pg 08/01/2024 4:53 AM [facility] Mean Cell Hemoglobin Concentration 33.1 32.0 - 35.7 g/dL 08/01/2024 4:53 AM [facility] Platelet 94(L) 145 - 357 x10(3)/mc L 08/01/2024 4:53 AM [facility] Mean Platelet Volume 10.9 7.6 - 12.9 fL 08/01/2024 4:53 AM [facility] RDW Standard Deviation 44.2 36.0 - 45.0 fL 08/01/2024 4:53 AM [facility] RDW coefficient of variation 14.7(H) 11.4 - 13.8 % 08/01/2024 4:53 AM [facility] NRBC% auto 0.0 % 08/01/2024 4:53 AM [facility] NRBC Absolute <0.01 <0.01 x10(3)/mc L 08/01/2024 4:53 AM [facility] Neutrophil % 82.7 % 08/01/2024 4:53 AM [facility] Neutrophil Absolute (ANC) - Automated 7.04(H) 1.70 - 6.10 x10(3)/mc L 08/01/2024 4:53 AM [facility] Lymph % 8.6 % 08/01/2024 4:53 AM [facility] Lymph Absolute 0.73(L) 0.90 - 3.20 x10(3)/mc L 08/01/2024 4:53 AM [facility] Monocyte % 7.6 % 08/01/2024 4:53 AM [facility] Monocyte Absolute 0.65 0.30 - 0.90 x10(3)/mc L 08/01/2024 4:53 AM [facility] Eos % 0.5 % 08/01/2024 4:53 AM [facility] Eos Absolute 0.04 0.00 - 0.40 x10(3)/mc L 08/01/2024 4:53 AM [facility] Basophil % 0.2 % 08/01/2024 4:53 AM [facility] Baso Absolute <0.04 0.00 - 0.10 x10(3)/mc L 08/01/2024 4:53 AM [facility] Immature Gran % 0.4 % 4:53 AM [facility] Immature Gran Absolute <0.04 0.00 - 0.04 x10(3)/mc L 08/01/2024 4:53 AM [facility] Blood VENOUS BLOOD SPECIMEN / Unknown Venipuncture / Unknown 08/01/2024 4:18 AM EST 08/01/2024 4:29 AM EST Bridgette Stauffer MD HEMATOLOGY ORDERABLE S Performing Organization Address [facility] Co de Phone Number [facility] [place] [address] * Magnesium (08/01/2024 4:18 AM EST) Pathologist [facility] Magnesium 0.74 0.69 - 1.07 mMol/L 08/01/2024 5:00 AM [facility] Blood VENOUS BLOOD SPECIMEN / Unknown Venipuncture / Unknown 08/01/2024 4:18 AM EST 08/01/2024 4:29 AM EST Bridgette Stauffer MD CHEMISTRY ORDERABLES Performing Organization Address [facility] Co de Phone Number [facility] [place] [address] * (ABNORMAL) Basic Metabolic Panel (08/01/2024 4:18 AM EST) Pathologist [facility] Glucose 107 65 - 199 mg/dL 08/01/2024 5:00 AM [facility] Comment:Glucose Concentratio n >=200 mg/dL plus symptoms is consistent with Diabetes Mellitus. Blood Urea Nitrogen 8(L) 10 - 20 mg/dL 08/01/2024 5:00 AM [facility] Creatinine 0.82 0.80 - 1.50 mg/dL 08/01/2024 5:00 AM [facility] Sodium 137 135 - 145 mMol/L 08/01/2024 5:00 AM [facility] Potassium 3.9 3.5 - 5.0 mMol/L 08/01/2024 5:00 AM [facility] Chloride 108(H) 98 - 107 mMol/L 08/01/2024 5:00 AM [facility] Carbon Dioxide 21(L) 22 - 31 mMol/L 08/01/2024 5:00 AM [facility] Anion Gap 8 5 - 15 mMol/L 08/01/2024 5:00 AM [facility] Calcium 7.7(L) 8.5 - 10.5 mg/dL 08/01/2024 5:00 AM [facility] Est Glomerular Filtration Rate - Male 93 mL/min/1. 73 m?? 08/01/2024 5:00 AM [facility] Comment: This [...] MD CHEMISTRY ORDERABLES [facility] [place] [address] * POC, GLUCOSE (07/31/2024 8:41 PM EST) Glucometer, POC 73 65 - 199 mg/dL 07/31/2024 8:41 PM EST [facility] Comment:Supplemental ranges: <140 mg/dL before meals <180 mg/dL all other times of the day. Blood CAPILLARY BLOOD / Unknown 07/31/2024 8:41 PM EST 07/31/2024 8:41 PM EST Krystal Parker MD POINT OF CARE TEST O RDERABLES Performing Organization Address [facility]/State/ZIP Co de Phone Number [facility] [place] [address] * CARDIAC CATHETERIZATION (07/31/2024 5:53 PM EST) Anatomical Region Laterality Modality Other Narrative 08/01/2024 12:37 PM EST ?[facility] ? Cardiac Catheterization/Intervention Report ? Patient Name: Korey Montoya Kyrie. ? Procedure Date: 07/31/2024 ? A #: [id number] ? Primary Physician: Janelle, Maldonado T ? Case #: [id number] ? File Name: [id number] ? Catheterization Order Number: [id number] ? [facility] ? Final Report [place], [place] ? Patient Name: ? Korey Montoya ?ID#: ?[id number] ? : ?1950 ? Procedure Date: ? July 31, 2024 ?Case #: ? [id number] ? Room: ? 1 ? Case [...] ? Comments: ?Impella removed from the right APPRENTICE INSTRUMENT TECHNICIAN with deployment of Perclose and ?Angioseal. [...] Procedure Note Maldonado Luis MD - 08/01/2024 [facility] Cardiac Catheterization/Intervention Report Patient Name: Korey Montoya Procedure Date: 07/31/2024 A #: [id number] Primary Physician: Maldonado Luis Case #: [id number] File Name: [id number] Catheterization Order Number: [id number] [facility] FinalReport [place], [place] Patient Name: Korey Montoya ID#:[id number] :1950 Procedure Date: July 31, 2024 Case [...] was designated as ASA Class IV. The [facility] clinical frailtyscale is 4: Vulnerable. [...] procedures. Comments: Impella removed from the right APPRENTICE INSTRUMENT TECHNICIAN with deployment of Perclose and Angioseal. [...] TEST O RDERABLES [facility] [place] [address] * (ABNORMAL) Blood Gas, Arterial POC (07/31/2024 [...] - 1.33 mmol/L 07/31/2024 8:30 AM [facility] Glucose, Arterial 86 65 - 199 mg/dL 07/31/2024 8:30 AM [facility] Comment:Glucose Concentratio n >=200 mg/dL plus symptoms is consistent with Diabetes Mellitus. Blood ARTERIAL BLOOD / Unknown 07/31/2024 8:29 AM EST 07/31/2024 8:30 AM EST Krystal Parker MD POINT OF CARE TEST O JOSH [facility] [place] [address] * POC, GLUCOSE (07/31/2024 7:47 AM EST) Glucometer, POC 82 65 - 199 mg/dL 07/31/2024 7:53 AM [facility] Comment:Supplemental ranges: <140 mg/dL before meals <180 mg/dL all other times of the day. Blood CAPILLARY BLOOD / Unknown 07/31/2024 7:47 AM EST 07/31/2024 7:53 AM EST Krystal Parker MD POINT OF CARE TEST O RDERASHAY [facility] [place] [address] * (ABNORMAL) CBC (with Diff) (07/31/2024 1:08 AM EST) White Blood Cell 10.25(H) 4.00 - 9.50 x10(3)/mc L 07/31/2024 1:28 AM [facility] Red Blood Cell 4.13(L) 4.58 - 5.54 x10(6)/mc L 07/31/2024 1:28 AM [facility] Hemoglobin 11.2(L) 13.7 - 16.5 g/dL 07/31/2024 1:28 AM [facility] Hematocrit 33.9(L) 40.5 - 48.5 % 07/31/2024 1:28 AM [facility] Mean Cell Volume 82.1(L) 82.9 - 93.1 fL 07/31/2024 1:28 AM [facility] Mean Cell Hemoglobin 27.1(L) 27.5 - 32.1 pg 07/31/2024 1:28 AM [facility] Mean Cell Hemoglobin Concentration 33.0 32.0 - 35.7 g/dL 07/31/2024 1:28 AM [facility] Platelet 109(L) 145 - 357 x10(3)/mc L 07/31/2024 1:28 AM [facility] Mean Platelet Volume 10.4 7.6 - 12.9 fL 07/31/2024 1:28 AM [facility] RDW Standard Deviation 45.1(H) 36.0 - 45.0 fL 07/31/2024 1:28 AM [facility] RDW coefficient of variation 15.1(H) 11.4 - 13.8 % 07/31/2024 1:28 AM [facility] NRBC% auto 0.0 % 07/31/2024 1:28 AM [facility] NRBC Absolute <0.01 <0.01 x10(3)/mc L 07/31/2024 1:28 AM [facility] Neutrophil % 79.7 % 07/31/2024 1:28 AM [facility] Neutrophil Absolute (ANC) - Automated 8.17(H) 1.70 - 6.10 x10(3)/mc L 07/31/2024 1:28 AM [facility] Lymph % 12.8 % 07/31/2024 1:28 AM [facility] Lymph Absolute 1.31 0.90 - 3.20 x10(3)/mc L 07/31/2024 1:28 AM [facility] Monocyte % 6.9 % 07/31/2024 1:28 AM [facility] Monocyte Absolute 0.71 0.30 - 0.90 x10(3)/mc L 07/31/2024 1:28 AM [facility] Eos % 0.1 % 07/31/2024 1:28 AM [facility] Eos Absolute <0.04 0.00 - 0.40 x10(3)/mc L 07/31/2024 1:28 AM [facility] Basophil % 0.3 % 07/31/2024 1:28 AM [facility] Baso Absolute <0.04 0.00 - 0.10 x10(3)/mc L 07/31/2024 1:28 AM [facility] Immature Gran % 0.2 % 1:28 AM [facility] Immature Gran Absolute <0.04 0.00 - 0.04 x10(3)/mc L 07/31/2024 1:28 AM [facility] Blood VENOUS BLOOD SPECIMEN / Unknown Venipuncture / Unknown 07/31/2024 1:08 AM EST 07/31/2024 1:18 AM EST Bridgette Stauffer MD HEMATOLOGY ORDERABLE S [facility] [place] [address] * Magnesium (07/31/2024 1:08 AM EST) Pathologist [facility] Magnesium 0.89 0.69 - 1.07 mMol/L 07/31/2024 1:46 AM [facility] Blood VENOUS BLOOD SPECIMEN / Unknown Venipuncture / Unknown 07/31/2024 1:08 AM EST 07/31/2024 1:18 AM EST Bridgette Stauffer MD CHEMISTRY ORDERABLES [facility] [address] [address] * (ABNORMAL) Basic Metabolic Panel (07/31/2024 1:08 AM EST) Pathologist [facility] Glucose 97 65 - 199 mg/dL 07/31/2024 1:46 AM [facility] Comment:Glucose Concentratio n >=200 mg/dL plus symptoms is consistent with Diabetes Mellitus. Blood Urea Nitrogen 11 10 - 20 mg/dL 07/31/2024 1:46 AM [facility] Creatinine 0.96 0.80 - 1.50 mg/dL 07/31/2024 1:46 AM EST [facility] Sodium 140 135 - 145 mMol/L 07/31/2024 1:46 AM EST [facility] Potassium 4.1 3.5 - 5.0 mMol/L 07/31/2024 1:46 AM [facility] Chloride 110(H) 98 - 107 mMol/L 07/31/2024 1:46 AM [facility] Carbon Dioxide 24 22 - 31 mMol/L 07/31/2024 1:46 AM [facility] Anion Gap 6 5 - 15 mMol/L 07/31/2024 1:46 AM EST [facility] Calcium 7.7(L) 8.5 - 10.5 mg/dL 07/31/2024 1:46 AM [facility] Est Glomerular Filtration Rate - Male 84 mL/min/1. 73 m?? 07/31/2024 1:46 AM [facility] Comment: This [...] MD CHEMISTRY ORDERABLES [facility] [place] [address] * (ABNORMAL) Hepatic Function Panel (07/31/2024 1:08 [...] - 0.3 mg/dL 07/31/2024 1:46 AM [facility] Protein, Total 5.0(L) 6.1 - 8.0 g/dL 07/31/2024 1:46 AM [facility] Blood VENOUS BLOOD SPECIMEN / Unknown Venipuncture / Unknown 07/31/2024 1:08 AM EST 07/31/2024 1:18 AM EST Krystal Parker MD CHEMISTRY ORDERABLES Performing Organization Address [facility]/ZIP Co de Phone Number [facility] [place] [address] * POC, GLUCOSE (07/30/2024 8:03 PM EST) Glucometer, POC 86 65 - 199 mg/dL 07/30/2024 8:03 PM EST [facility] Comment:Supplemental ranges: <140 mg/dL before meals <180 mg/dL all other times of the day. Blood CAPILLARY BLOOD / Unknown 07/30/2024 8:03 PM EST 07/30/2024 8:03 PM EST Krystal Parker MD POINT OF CARE TEST O RDERABLES Performing Organization Address City/[facility]/ZIP Co de Phone Number [facility] [place] [address] * Potassium (07/30/2024 8:03 PM EST) [facility] Potassium 3.8 3.5 - 5.0 mMol/L 07/30/2024 9:13 PM EST [facility] Blood VENOUS BLOOD SPECIMEN / Unknown Venipuncture / Unknown 07/30/2024 8:03 PM EST 07/30/2024 8:22 PM EST Aubree Silverio MD CHEMISTRY ORDERABL ES Performing Organization Address City/[facility]/ZIP Co de Phone Number [facility] [place] [address] * POC, GLUCOSE (07/30/2024 6:23 PM EST) Glucometer, POC 93 65 - 199 mg/dL 07/30/2024 6:24 PM EST [facility] Comment:Supplemental ranges: <140 mg/dL before meals <180 mg/dL all other times of the day. Blood CAPILLARY BLOOD / Unknown 07/30/2024 6:23 PM EST 07/30/2024 6:24 PM EST Krystal Parker MD POINT OF CARE TEST O RDKAY Performing Organization Address [facility] Co de Phone Number [facility] [place] [address] * POC, GLUCOSE (07/30/2024 5:08 PM EST) Glucometer, POC 78 65 - 199 mg/dL 07/30/2024 5:08 PM EST [facility] Comment:Supplemental ranges: <140 mg/dL before meals <180 mg/dL all other times of the day. Blood CAPILLARY BLOOD / Unknown 07/30/2024 5:08 PM EST 07/30/2024 5:08 PM EST Krystal Parker MD POINT OF CARE TEST O JOSH Performing Organization Address [facility] Co de Phone Number [facility] [place] [address] * (ABNORMAL) Phosphorus (07/30/2024 3:08 PM EST) Phosphorus 2.1(L) 2.5 - 4.5 mg/dL 07/30/2024 3:58 PM EST [facility] Blood VENOUS BLOOD SPECIMEN / Unknown Venipuncture / Unknown 07/30/2024 3:08 PM EST 07/30/2024 3:12 PM EST Aubree Silverio MD CHEMISTRY ORDERABL ES Performing Organization Address [facility] Co de Phone Number [facility] [place] [address] * Magnesium (07/30/2024 3:08 PM EST) Magnesium 0.90 0.69 - 1.07 mMol/L 07/30/2024 3:58 PM EST [facility] Blood VENOUS BLOOD SPECIMEN / Unknown Venipuncture / Unknown 07/30/2024 3:08 PM EST 07/30/2024 3:12 PM EST Aubree Silverio MD CHEMISTRY ORDERABL ES [facility] [place] [address] * (ABNORMAL) Basic Metabolic Panel (07/30/2024 3:08 PM EST) Glucose 105 65 - 199 mg/dL 07/30/2024 4:17 PM [facility] Comment:Glucose Concentratio n >=200 mg/dL plus symptoms is consistent with Diabetes Mellitus. Blood Urea Nitrogen 13 10 - 20 mg/dL 07/30/2024 4:17 PM [facility] Creatinine 1.01 0.80 - 1.50 mg/dL 07/30/2024 4:17 PM [facility] Sodium 141 135 - 145 mMol/L 07/30/2024 4:17 PM [facility] Potassium 3.4(L) 3.5 - 5.0 mMol/L 07/30/2024 4:17 PM [facility] Chloride 109(H) 98 - 107 mMol/L 07/30/2024 4:17 PM [facility] Carbon Dioxide 21(L) 22 - 31 mMol/L 07/30/2024 4:17 PM [facility] Anion Gap 11 5 - 15 mMol/L 07/30/2024 4:17 PM [facility] Calcium 7.9(L) 8.5 - 10.5 mg/dL 07/30/2024 4:17 PM [facility] Est Glomerular Filtration Rate - Male 79 mL/min/1. 73 m?? 07/30/2024 4:17 PM [facility] Comment: [...] ORDERABL ES [facility] [place] [address] * ECHO LMTD W CONTRAST W LMTD SPEC DOPP COLOR DOPP (07/30/2024 11:42 AM EST) Anatomical Region Laterality Modality Cardiac Other 07/30/2024 10:2 2 AM EST Narrative 07/30/2024 12:34 PM EST [address] [place] [address] ? Echocardiogram Report Name: MONTOYA KOREY Kyrie ? Study Date: 07/30/2024 10:22 AMBP: 124/66 mmHg : 1950 ? Height: 168 cm ? Account: [id number] Age: 74 yrs ? Weight: 65 kg Gender: Male ?BSA: 1.7 m2 Ordering Physician: Aubree Silverio MD Referring Physician: CHAPARRO FERRERA Performed By: OMERO Millan Reason For Study: ST elevation myocardial infarction involving left anterior descending (LAD) coronary artery Interpreting Fellow: Ivan Hernandez. Exam Location: [facility]. Interpretation Summary Left ventricle [...] Compared to the overnight study by the vacation sales advisor fellow the impella position is stable. 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 Procedure Limited - 51063. Image enhancement Definity was used for both [...] Note Kathleen Banda MD - 07/30/2024 [address] [place] [address] Echocardiogram Report Name: KOREY MONTOYA Study Date: 0:22 AMBP: 124/66 mmHg : 1950 Height: 168 cm Account: [id number] Age: 74 yrs Weight: 65 kg Gender: Male BSA: 1.7 m2 Ordering Physician: Aubree Silverio MD Referring Physician: CHAPARRO FERRERA Performed By: OMERO Millan Reason For Study: ST elevation myocardial infarction involving leftanterior descending (LAD) coronary artery Interpreting Fellow: Ivan Hernandez. Exam Location: [facility]. Interpretation Summary Left ventricle [...] Compared to the overnight study by the vacation sales advisor fellow the impella positionis stable. The global left ventricular systolic function has improvedpredominantly via recruitment outside the LAD territory which remains akinetic. Procedure Limited - 41798. Image enhancement Definity was used for both [...] CARE TEST ORDERABLES [facility] [place] [address] * (ABNORMAL) Blood Gas, Arterial POC (07/30/2024 8:16 AM EST) pH, Arterial 7.44 7.35 - 7.45 07/30/2024 8:17 AM [facility] PCO2, Arterial 29(L) 35 - 45 mmHg 07/30/2024 8:17 AM [facility] PO2, Arterial 109(H) 85 - 104 mmHg 07/30/2024 8:17 AM [facility] Bicarbonate, Arterial 19.4(L) 20.0 - 26.0 mmol/L 07/30/2024 8:17 AM [facility] Base Excess, Arterial -4.7(L) -3.0 - 3.0 mmol/L 07/30/2024 8:17 AM [facility] Hemoglobin, Arterial 12.2(L) 13.7 - 16.5 g/dL 07/30/2024 8:17 AM [facility] Oxyhemoglobin, Arterial 97.1(H) 94.0 - 97.0 % 07/30/2024 8:17 AM [facility] Carboxyhemoglob in, Arterial 1.0 % 07/30/2024 8:17 AM [facility] Comment: Nonsmokers: 0.5-1.5% COHB ?? Smokers: Variable ??but usually less than 10% ?? Toxic: 20-30% COHB ?? Lethal: Greater than 60% COHB Methemoglobin, Arterial 0.1 <=1.5 % 07/30/2024 8:17 AM [facility] Sodium, Arterial 132(L) 135 - 145 mmol/L 07/30/2024 8:17 AM EST [facility] Potassium, Arterial 3.9 3.5 - 5.0 mmol/L 07/30/2024 8:17 AM [facility] Chloride, Arterial 105 98 - 107 mmol/L 07/30/2024 8:17 AM [facility] Lactate, Arterial 1.2 0.5 - 2.2 mmol/L 07/30/2024 8:17 AM [facility] Fraction of Inspired Oxygen 21 % 07/30/2024 8:17 AM [facility] PF Ratio 519 Ratio 07/30/2024 8:17 AM [facility] Comment:PF ratio calculated using the non-temperature corrected pO2 result. IONIZED CALCIUM, ARTERIAL 1.15 1.15 - 1.33 mmol/L 07/30/2024 8:17 AM [facility] Blood ARTERIAL BLOOD / Unknown 07/30/2024 8:16 AM EST 07/30/2024 8:17 AM EST Aubree Silverio MD POINT OF CARE TEST ORDERABLES [facility] [place] [address] * (ABNORMAL) Troponin - Single (07/30/2024 8:09 [...] can be found in the [facility] Test Catalog Troponin - [email or web address].org/catalogs/565/files/[email or web address] Reference: Fourth Kimball Definition of Myocardial Infarction. Journal of the [place] [employer] 2018;72:2545-2769 Blood VENOUS BLOOD SPECIMEN / Unknown Venipuncture / Unknown 07/30/2024 8:09 AM EST 07/30/2024 8:26 AM EST Aubree Silverio MD CHEMISTRY ORDERABL ES Performing Organization Address [facility] Co de Phone Number [facility] [place] [address] * POC, GLUCOSE (07/30/2024 7:40 AM EST) Glucometer, POC 111 65 - 199 mg/dL 07/30/2024 7:40 AM EST [facility] Comment:Supplemental ranges: <140 mg/dL before meals <180 mg/dL all other times of the day. Blood CAPILLARY BLOOD / Unknown 07/30/2024 7:40 AM EST 07/30/2024 7:40 AM EST Aubree Silverio MD POINT OF CARE TEST ORDERABLES Performing Organization Address [facility] Co de Phone Number [facility] [place] [address] * (ABNORMAL) CBC (with Diff) (07/30/2024 2:11 AM EST) White Blood Cell 11.25(H) 4.00 - 9.50 x10(3)/mc L 07/30/2024 2:33 AM EST [facility] Red Blood Cell 4.50(L) 4.58 - 5.54 x10(6)/mc L 07/30/2024 2:33 AM [facility] Hemoglobin 12.2(L) 13.7 - 16.5 g/dL 07/30/2024 2:33 AM [facility] Hematocrit 37.1(L) 40.5 - 48.5 % 07/30/2024 2:33 AM [facility] Mean Cell Volume 82.4(L) 82.9 - 93.1 fL 07/30/2024 2:33 AM [facility] Mean Cell Hemoglobin 27.1(L) 27.5 - 32.1 pg 07/30/2024 2:33 AM [facility] Mean Cell Hemoglobin Concentration 32.9 32.0 - 35.7 g/dL 07/30/2024 2:33 AM [facility] Platelet 166 145 - 357 x10(3)/mc L 07/30/2024 2:33 AM [facility] Mean Platelet Volume 10.6 7.6 - 12.9 fL 07/30/2024 2:33 AM [facility] RDW Standard Deviation 44.6 36.0 - 45.0 fL 07/30/2024 2:33 AM [facility] RDW coefficient of variation 14.6(H) 11.4 - 13.8 % 07/30/2024 2:33 AM [facility] NRBC% auto 0.0 % 07/30/2024 2:33 AM [facility] NRBC Absolute <0.01 <0.01 x10(3)/mc L 07/30/2024 2:33 AM [facility] Neutrophil % 88.9 % 07/30/2024 2:33 AM [facility] Neutrophil Absolute (ANC) - Automated 10.00(H) 1.70 - 6.10 x10(3)/mc L 07/30/2024 2:33 AM [facility] Lymph % 5.1 % 07/30/2024 2:33 AM [facility] Lymph Absolute 0.57(L) 0.90 - 3.20 x10(3)/mc L 07/30/2024 2:33 AM EST [facility] Monocyte % 5.4 % 07/30/2024 2:33 AM [facility] Monocyte Absolute 0.61 0.30 - 0.90 x10(3)/mc L 07/30/2024 2:33 AM [facility] Eos % 0.0 % 07/30/2024 2:33 AM [facility] Eos Absolute <0.04 0.00 - 0.40 x10(3)/mc L 07/30/2024 2:33 AM [facility] Basophil % 0.2 % 07/30/2024 2:33 AM [facility] Baso Absolute <0.04 0.00 - 0.10 x10(3)/mc L 07/30/2024 2:33 AM [facility] Immature Gran % 0.4 % 2:33 AM [facility] Immature Gran Absolute 0.05(H) 0.00 - 0.04 x10(3)/mc L 07/30/2024 2:33 AM [facility] Blood VENOUS BLOOD SPECIMEN / Unknown Venipuncture / Unknown 07/30/2024 2:11 AM EST 07/30/2024 2:22 AM EST Bridgette Stauffer MD HEMATOLOGY ORDERABLE S [facility] [place] [address] * Magnesium (07/30/2024 2:11 AM EST) Magnesium 1.01 0.69 - 1.07 mMol/L 07/30/2024 2:51 AM [facility] Blood VENOUS BLOOD SPECIMEN / Unknown Venipuncture / Unknown 07/30/2024 2:11 AM EST 07/30/2024 2:22 AM EST Bridgette Stauffer MD CHEMISTRY ORDERABLES [facility] [place] [address] * (ABNORMAL) Basic Metabolic Panel (07/30/2024 2:11 AM EST) Glucose 190 65 - 199 mg/dL 07/30/2024 2:51 AM [facility] Comment:Glucose Concentratio n >=200 mg/dL plus symptoms is consistent with Diabetes Mellitus. Blood Urea Nitrogen 15 10 - 20 mg/dL 07/30/2024 2:51 AM [facility] Creatinine 0.88 0.80 - 1.50 mg/dL 07/30/2024 2:51 AM [facility] Sodium 135 135 - 145 mMol/L 07/30/2024 2:51 AM [facility] Potassium 4.9 3.5 - 5.0 mMol/L 07/30/2024 2:51 AM [facility] Chloride 105 98 - 107 mMol/L 07/30/2024 2:51 AM [facility] Carbon Dioxide 19(L) 22 - 31 mMol/L 07/30/2024 2:51 AM [facility] Anion Gap 11 5 - 15 mMol/L 07/30/2024 2:51 AM [facility] Calcium 7.7(L) 8.5 - 10.5 mg/dL 07/30/2024 2:51 AM [facility] Est Glomerular Filtration Rate - Male 91 mL/min/1. 73 m?? 07/30/2024 2:51 AM [facility] Comment: This [...] Stauffer MD CHEMISTRY ORDERABLES Performing Organization Address City/[facility]/ZIP Co de Phone Number [facility] [place] [address] * (ABNORMAL) Cooximetry, POC (07/30/2024 1:00 AM EST) pO2, Coox 28 mmHg 07/30/2024 1:03 AM [facility] Hemoglobin, Coox 12.7(L) 13.7 - 16.5 g/dL 07/30/2024 1:03 AM EST [facility] Oxyhemoglobin, Coox 54.9 % 07/30/2024 1:03 AM [facility] Carboxyhemoglo bin, Coox 1.0 % [...] OF CARE TEST ORDERABLES Performing Organization Address [facility] Co de Phone Number [facility] [place] [address] * (ABNORMAL) Blood Gas, Arterial POC (07/30/2024 12:57 AM EST) pH, Arterial 7.38 7.35 - 7.45 07/30/2024 12:58 AM [facility] PCO2, Arterial 34(L) 35 - 45 mmHg 07/30/2024 12:58 AM [facility] PO2, Arterial 141(H) 85 - 104 mmHg 07/30/2024 12:58 AM [facility] Bicarbonate, Arterial 19.5(L) 20.0 - 26.0 mmol/L 07/30/2024 12:58 AM [facility] Base Excess, Arterial -5.6(L) -3.0 - 3.0 mmol/L 07/30/2024 12:58 AM [facility] Hemoglobin, Arterial 13.0(L) 13.7 - 16.5 g/dL 07/30/2024 12:58 AM [facility] Oxyhemoglobin, Arterial 98.4(H) 94.0 - 97.0 % 07/30/2024 12:58 AM [facility] Carboxyhemoglobin , Arterial 0.4 % 07/30/2024 12:58 AM [facility] Comment: Nonsmokers: 0.5-1.5% COHB ?? Smokers: Variable ??but usually less than 10% ?? Toxic: 20-30% COHB ?? Lethal: Greater than 60% COHB Methemoglobin, Arterial 0.1 <=1.5 % 07/30/2024 12:58 AM [facility] Sodium, Arterial 130(L) 135 - 145 mmol/L 07/30/2024 12:58 AM [facility] Potassium, Arterial 4.5 3.5 - 5.0 mmol/L 07/30/2024 12:58 AM [facility] Chloride, Arterial 104 98 - 107 mmol/L 07/30/2024 12:58 AM [facility] Lactate, Arterial 1.3 0.5 - 2.2 mmol/L 07/30/2024 12:58 AM [facility] Flow Rate 2.0 L/min 07/30/2024 [...] CARE TEST ORDERABLES [facility] [place] [address] * (ABNORMAL) Troponin - Single (07/29/2024 10:31 [...] can be found in the [facility] Test Catalog Troponin - https://[email or web address].org/catalogs/565/[email or web address] Reference: Fourth Kimball Definition of Myocardial Infarction. Journal of the [place] [employer] 2018;72:8009-4444 Blood VENOUS BLOOD SPECIMEN / Unknown Venipuncture / Unknown 07/29/2024 10:31 PM EST 07/29/2024 10:36 PM EST Yrn Velazquez MD CHEMISTRY ORDERABL ES Performing Organization Address City/[facility]/ZIP Co de Phone Number [facility] [place] [address] * Potassium (07/29/2024 8:11 PM EST) Potassium 4.1 3.5 - 5.0 mMol/L 07/29/2024 8:52 PM EST [facility] Blood VENOUS BLOOD SPECIMEN / Unknown Venipuncture / Unknown 07/29/2024 8:11 PM EST 07/29/2024 8:16 PM EST Aubree Silverio MD CHEMISTRY ORDERABL ES Performing Organization Address [facility]/ZIP Co de Phone Number [facility] [place] [address] * (ABNORMAL) Troponin - Single (07/29/2024 8:11 [...] can be found in the [facility] Test Catalog Troponin - https://[email or web address].org/catalogs/565/files/[email or web address] Reference: Fourth Kimball Definition of Myocardial Infarction. Journal of the [place] [employer] 2018;72:2336-8783 Blood VENOUS BLOOD SPECIMEN / Unknown Venipuncture / Unknown 07/29/2024 8:11 PM EST 07/29/2024 8:16 PM EST Aubree Silverio MD CHEMISTRY ORDERABL ES [facility] [place] [address] * (ABNORMAL) Phosphorus (07/29/2024 8:11 PM EST) Phosphorus 2.1(L) 2.5 - 4.5 mg/dL 07/29/2024 8:52 PM EST [facility] Blood VENOUS BLOOD SPECIMEN / Unknown Venipuncture / Unknown 07/29/2024 8:11 PM EST 07/29/2024 8:16 PM EST Aubree Silverio MD CHEMISTRY ORDERABL ES [facility] [place] [address] * POC, GLUCOSE (07/29/2024 8:09 PM EST) Glucometer, POC 142 65 - 199 mg/dL 07/29/2024 8:09 PM EST [facility] Comment:Supplemental ranges: <140 mg/dL before meals <180 mg/dL all other times of the day. Blood CAPILLARY BLOOD / Unknown 07/29/2024 8:09 PM EST 07/29/2024 8:09 PM EST Aubree Silverio MD POINT OF CARE TEST ORDERABLES Performing Organization Address City/[facility]/ZIP Co de Phone Number [facility] [place] [address] * ABORH RECHECK (07/29/2024 6:43 PM EST) Pathologist [facility] ABORH Recheck AB POSITIVE 07/29/2024 10:13 PM EST [facility] Blood VENOUS BLOOD SPECIMEN / Unknown Venipuncture / Unknown 07/29/2024 6:43 PM EST 07/29/2024 7:15 PM EST Aubree Silverio MD BLOOD BANK LAB ORD ERABLES Performing Organization Address City/[facility]/ZIP Co de Phone Number [facility] [place] [address] * POC, GLUCOSE (07/29/2024 5:57 PM EST) [facility] Glucometer, POC 166 65 - 199 mg/dL 07/29/2024 5:57 PM EST [facility] Comment:Supplemental ranges: <140 mg/dL before meals <180 mg/dL all other times of the day. Blood CAPILLARY BLOOD / Unknown 07/29/2024 5:57 PM EST 07/29/2024 5:57 PM EST Aubree Silverio MD POINT OF CARE TEST ORDERABLES Performing Organization Address City/[facility]/ZIP Co de Phone Number [facility] [place] [address] * Type and screen ([place]/CGP/MAGALIE) (07/29/2024 5:56 PM EST) Pathologist [facility] ABORH Type AB POSITIVE 07/29/2024 9:44 PM EST [facility] PATIENT HISTORY Not Found 07/29/2024 9:44 PM EST [facility] Expires at [id number] on: 08/01/2024 07/29/2024 9:44 PM EST [facility] ANTIBODY SCREEN AUTOMATED Negative 07/29/2024 9:44 PM EST [facility] T&S only valid at [facility] 07/29/2024 9:44 PM EST [facility] Blood VENOUS BLOOD SPECIMEN / Unknown Venipuncture / Unknown 07/29/2024 5:56 PM EST 07/29/2024 6:07 PM EST Narrative [facility] - 07/29/2024 9:44 PM EST This Type and Screen result is only valid at the [facility] Aubree Silverio MD BLOOD BANK LAB ORD ERABLES [facility] [place] [address] * (ABNORMAL) Troponin - Single (07/29/2024 4:52 [...] can be found in the [facility] Test Catalog Troponin - [email or web address]/catalogs/565/files/[email or web address] Reference: Fourth Kimball Definition of Myocardial Infarction. Journal of the [place] [employer] 2018;72:2087-5976 Blood VENOUS BLOOD SPECIMEN / Unknown Venipuncture / Unknown 07/29/2024 4:52 PM EST 07/29/2024 4:57 PM EST Aubree Silverio MD CHEMISTRY ORDERABL ES Performing Organization Address City/[facility]/ZIP Co de Phone Number [facility] [place] [address] * EKG 12 Lead (07/29/2024 4:21 PM EST) Ventricular rate 72 BPM MUSE SYSTEM Atrial Rate 72 BPM MUSE SYSTEM P-R Interval 168 ms MUSE SYSTEM QRS Duration 82 ms MUSE SYSTEM Q-T Interval 392 ms MUSE SYSTEM QTC Calculated (Bezet) 429 ms MUSE SYSTEM Calculated P [place] 71 degrees MUSE SYSTEM Calculated R [place] 77 degrees MUSE SYSTEM Calculated T [place] 28 degrees MUSE SYSTEM INTERPRETATION Sinus rhythm [...] Silverio MD ECG ORDERABLES Performing Organization Address [facility]/ZIP Co de Phone Number MUSE [...] - 3.0 mmol/L 07/29/2024 4:22 PM [facility] Hemoglobin, Arterial 12.2(L) 13.7 - 16.5 g/dL 07/29/2024 4:22 PM [facility] Oxyhemoglobin, Arterial 93.8(L) 94.0 - 97.0 % 07/29/2024 4:22 PM [facility] Carboxyhemoglobin , Arterial 0.5 % 07/29/2024 4:22 PM [facility] Comment: Nonsmokers: 0.5-1.5% COHB ?? Smokers: Variable ??but usually less than 10% ?? Toxic: 20-30% COHB ?? Lethal: Greater than 60% COHB Methemoglobin, Arterial 0.3 <=1.5 % 07/29/2024 4:22 PM [facility] Sodium, Arterial 134(L) 135 - 145 mmol/L 07/29/2024 4:22 PM [facility] Potassium, Arterial 4.2 3.5 - 5.0 mmol/L 07/29/2024 4:22 PM [facility] Chloride, Arterial 107 98 - 107 mmol/L 07/29/2024 4:22 PM [facility] Lactate, Arterial 1.5 0.5 - 2.2 mmol/L 07/29/2024 4:22 PM [facility] Fraction of Inspired Oxygen 21 % 07/29/2024 4:22 PM [facility] PF Ratio 338 Ratio 07/29/2024 4:22 PM [facility] Comment:PF ratio calculated using the non-temperature corrected pO2 result. IONIZED CALCIUM, ARTERIAL 1.12(L) 1.15 - 1.33 mmol/L 07/29/2024 4:22 PM [facility] Glucose, Arterial 181 65 - 199 mg/dL 07/29/2024 4:22 PM [facility] Comment:Glucose Concentratio n >=200 mg/dL plus symptoms is consistent with Diabetes Mellitus. Blood ARTERIAL BLOOD / Unknown 07/29/2024 4:21 PM EST 07/29/2024 4:22 PM EST Aubree Silverio MD POINT OF CARE TEST ORDERABLES [facility] [place] [address] * POC, GLUCOSE (07/29/2024 4:19 PM EST) Glucometer, POC 185 65 - 199 mg/dL 07/29/2024 4:19 PM EST [facility] Comment:Supplemental ranges: <140 mg/dL before meals <180 mg/dL all other times of the day. Blood CAPILLARY BLOOD / Unknown 07/29/2024 4:19 PM EST 07/29/2024 4:19 PM EST Aubree Silverio MD POINT OF CARE TEST ORDERABLES Performing Organization Address City/[facility]/ZIP Co de Phone Number [facility] [place] [address] * Blood culture (07/29/2024 4:08 PM EST) Blood Culture No growth at 120 hours 08/03/2024 5:01 PM EST [facility] Blood VENOUS BLOOD SPECIMEN / Unknown Venipuncture / Unknown 07/29/2024 4:08 PM EST 07/29/2024 4:15 PM EST Aubree Silverio MD MICROBIOLOGY - BLO OD ORDERABLES Performing Organization Address City/[facility]/ZIP Co de Phone Number [facility] [place] [address] * Blood culture (07/29/2024 4:08 PM EST) Blood Culture No growth at 120 hours 08/03/2024 5:01 PM EST [facility] Blood VENOUS BLOOD SPECIMEN / Unknown Venipuncture / Unknown 07/29/2024 4:08 PM EST 07/29/2024 4:26 PM EST Aubree Silverio MD MICROBIOLOGY - BLO OD ORDERABLES [facility] [place] [address] * XR Chest One View (07/29/2024 2:30 PM EST) WORKSTATION ID [id number] RAD Anatomical Region Laterality Modality Chest N/A [...] questions please contact the health respiratory care faculty that requested your imaging first. ? Electronically signed by: Chris Candelaria MD, [facility] ([phone]), at 07/29/2024 3:21 PM Narrative 07/29/2024 3:21 [...] have questions please contactthe health respiratory care faculty that requested your imaging first. Electronically signed by: Chris Candelaria MD, [facility]([phone]), at 07/29/2024 3:21 PM Vahe Marvin MD IMG DX ORDERABLES * (ABNORMAL) APTT (07/29/2024 2:03 PM EST) Pathologist [facility] Partial Thromboplastin Time >160([facility]) 25 - 37 sec 07/29/2024 2:56 PM EST [facility] Blood VENOUS BLOOD SPECIMEN / Unknown Venipuncture / Unknown 07/29/2024 2:03 PM EST 07/29/2024 2:13 PM EST Vahe Marvin MD HEMATOLOGY ORDERABLE S [facility] [place] [address] * (ABNORMAL) Prothrombin Time (07/29/2024 2:03 PM [...] MD HEMATOLOGY ORDERABLE S Performing Organization Address City/[facility]/ZIP Co de Phone Number [facility] [place] [address] * CRP, acute inflammation (07/29/2024 2:03 PM EST) C-Reactive Protein <3.0 <=4.9 mg/L 07/29/2024 2:52 PM EST [facility] Blood VENOUS BLOOD SPECIMEN / Unknown Venipuncture / Unknown 07/29/2024 2:03 PM EST 07/29/2024 2:14 PM EST Vahe Marvin MD CHEMISTRY ORDERABLES Performing Organization Address City/[facility]/ZIP Co de Phone Number [facility] [place] [address] * Lipid Panel (Reflex Direct LDL) (07/29/2024 [...] HDL Cholesterol 58 mg/dL 2:52 PM [facility] Comment:Males: High Risk: <4 0 mg/dL LDL Cholesterol 64 mg/dL 2:52 PM [facility] Comment: Desirable: <100 mg/dL Above Desirable: 100-129 mg/dL Borderline High: 130-159 mg/dL High: 160-189 mg/dL Very High: > or =190 mg/dL Note: LDL calculation updated to the NIH LDL formula as of 04/15/2024 Non-HDL Cholesterol 75 mg/dL 07/29/2024 2:52 PM [facility] Comment: Desirable: <130 mg/dL Above Desirable: 130-159 mg/dL Borderline High: 160-189 mg/dL High: 190-219 mg/dL Very High: > or = 220 mg/dL Blood VENOUS BLOOD SPECIMEN / Unknown Venipuncture / Unknown 07/29/2024 2:03 PM EST 07/29/2024 2:14 PM EST [facility] - 07/29/2024 2:52 PM [...] Marvin MD CHEMISTRY ORDERABLES Performing Organization Address City/[facility]/ZIP Co de Phone Number [facility] [place] [address] * TSH [place] (07/29/2024 2:03 PM EST) [facility] Thyroid Stimulating Hormone 0.70 0.27 - 4.20 mcIU/mL 07/29/2024 2:52 PM EST [facility] Blood VENOUS BLOOD SPECIMEN / Unknown Venipuncture / Unknown 07/29/2024 2:03 PM EST 07/29/2024 2:14 PM EST Vahe Marvin MD CHEMISTRY ORDERABLES Performing Organization Address [facility]/ZIP Co de Phone Number [facility] [place] [address] * Hemoglobin A1c (07/29/2024 2:03 PM EST) [...] 2:03 PM EST 07/29/2024 2:14 PM EST [facility] - 07/29/2024 2:41 PM EST Estimated average glucose (eAG) is calculated from the equation described in: Quinten ALVES, Rikki J, Reno R, et al. ??Translating the A1C assay into estimated average glucose values. ??Diabetes Care 2008:31(8):1662-9512. Additional resources are available on the ADA website (diabetes.org). Vahe Marvin MD CHEMISTRY ORDERABLES [facility] [place] [address] * (ABNORMAL) CBC (with Diff) (07/29/2024 2:03 PM EST) White Blood Cell 19.50(H) 4.00 - 9.50 x10(3)/mc L 07/29/2024 2:18 PM EST [facility] Red Blood Cell 4.81 4.58 - 5.54 x10(6)/mc L 07/29/2024 2:18 PM [facility] Hemoglobin 13.1(L) 13.7 - 16.5 g/dL 07/29/2024 2:18 PM [facility] Hematocrit 40.1(L) 40.5 - 48.5 % 07/29/2024 2:18 PM [facility] Mean Cell Volume 83.4 82.9 - 93.1 fL 07/29/2024 2:18 PM [facility] Mean Cell Hemoglobin 27.2(L) 27.5 - 32.1 pg 07/29/2024 2:18 PM [facility] Mean Cell Hemoglobin Concentration 32.7 32.0 - 35.7 g/dL 07/29/2024 2:18 PM [facility] Platelet 236 145 - 357 x10(3)/mc L 07/29/2024 2:18 PM [facility] Mean Platelet Volume 10.6 7.6 - 12.9 fL 07/29/2024 2:18 PM [facility] RDW Standard Deviation 43.7 36.0 - 45.0 fL 07/29/2024 2:18 PM [facility] RDW coefficient of variation 14.3(H) 11.4 - 13.8 % 07/29/2024 2:18 PM [facility] NRBC% auto 0.0 % 07/29/2024 2:18 PM [facility] NRBC Absolute <0.01 <0.01 x10(3)/mc L 07/29/2024 2:18 PM [facility] Neutrophil % 93.6 % 07/29/2024 2:18 PM [facility] Neutrophil Absolute (ANC) - Automated 18.28(H) 1.70 - 6.10 x10(3)/mc L 07/29/2024 2:18 PM [facility] Lymph % 2.7 % 07/29/2024 2:18 PM [facility] Lymph Absolute 0.52(L) 0.90 - [...] % 0.3 % 07/29/2024 2:18 PM [facility] Baso Absolute 0.05 0.00 - 0.10 x10(3)/mc L 07/29/2024 2:18 PM EST [facility] Immature Gran % 0.5 % 2:18 PM [facility] Immature Gran Absolute 0.09(H) 0.00 - 0.04 x10(3)/mc L 07/29/2024 2:18 PM EST [facility] Blood VENOUS BLOOD SPECIMEN / Unknown Venipuncture / Unknown 07/29/2024 2:03 PM EST 07/29/2024 2:13 PM EST Vahe Marvin MD HEMATOLOGY ORDERABLE S Performing Organization Address City/State/[facility] Co de Phone Number [facility] [place] [address] * Phosphorus (07/29/2024 2:03 PM EST) Phosphorus 2.5 2.5 - 4.5 mg/dL 07/29/2024 2:52 PM EST [facility] Blood VENOUS BLOOD SPECIMEN / Unknown Venipuncture / Unknown 07/29/2024 2:03 PM EST 07/29/2024 2:14 PM EST Vahe Marvin MD CHEMISTRY ORDERABLES [facility] [place] [address] * Magnesium (07/29/2024 2:03 PM EST) Pathologist [facility] Magnesium 0.70 0.69 - 1.07 mMol/L 07/29/2024 2:52 PM EST [facility] Blood VENOUS BLOOD SPECIMEN / Unknown Venipuncture / Unknown 07/29/2024 2:03 PM EST 07/29/2024 2:14 PM EST Vahe Marvin MD CHEMISTRY ORDERABLES Performing Organization Address City/[facility]/ZIP Co de Phone Number [facility] [place] [address] * (ABNORMAL) Comprehensive metabolic panel (07/29/2024 2:03 PM EST) Pathologist [facility] Glucose 243(H) 65 - 199 mg/dL 07/29/2024 3:11 PM [facility] Comment:Glucose Concentratio n >=200 mg/dL plus symptoms is consistent with Diabetes Mellitus. Blood Urea Nitrogen 13 10 - 20 mg/dL 07/29/2024 3:11 PM [facility] Creatinine 0.88 0.80 - 1.50 mg/dL 07/29/2024 3:11 PM [facility] Sodium 138 135 - 145 mMol/L 07/29/2024 3:11 PM [facility] Potassium 3.6 3.5 - 5.0 mMol/L 07/29/2024 3:11 PM [facility] Chloride 104 98 - 107 mMol/L 07/29/2024 3:11 PM [facility] Carbon Dioxide 19(L) 22 - 31 mMol/L 07/29/2024 3:11 PM [facility] Anion Gap 15 5 - 15 mMol/L 07/29/2024 3:11 PM [facility] Calcium 8.0(L) 8.5 - 10.5 [...] MD CHEMISTRY ORDERABLES [facility] [place] [address] * (ABNORMAL) Troponin - Single (07/29/2024 2:03 [...] can be found in the [facility] Laboratory Test Catalog Troponin - [email or web address]/[email or web address] Reference: Fourth Kimball Definition of Myocardial Infarction. Journal of the [place] [employer] 2018;72:0121-5782 Blood VENOUS BLOOD SPECIMEN / Unknown Venipuncture / Unknown 07/29/2024 2:03 PM EST 07/29/2024 2:14 PM EST Vahe Marvin MD CHEMISTRY ORDERABLES [facility] [place] [address] * (ABNORMAL) Blood Gas, Venous POC (07/29/2024 [...] CARE TEST O RDERABLES Performing Organization Address [facility]/State/ZIP Co de Phone Number [facility] [place] [address] * CARDIAC CATHETERIZATION (07/29/2024 1:20 PM EST) Anatomical Region Laterality Modality Other Narrative 07/29/2024 2:02 PM EST ?[facility] ? Cardiac Catheterization/Intervention Report ? Patient Name: Korey Montoya Kyrie. ? Procedure Date: 07/29/2024 ? A #: [id number] ? Primary Physician: Vahe Marvin ? Case #: [id number] ? File Name: [id number] ? Catheterization Order Number: [id number] ? [facility] ? Final Report [place], [place] ? Patient Name: ? Korey Montoya ?ID#: ?[id number] ? : ?1950 ? Procedure Date: ? [...] procedure was Emergent. The indication for ?the manager cath lab visit is ACS less than or equal [...] 3.5 guiding catheter and a 3.5 [address] [place] [facility] [address] ??20 Mhz using ?Manual pullback. ??Imaging [...] ? A premounted 3.00 x 22 mm [place] Zapata (LOW) was deployed ? with a maximum [...] atmospheres. ??A premounted 3.00 x 08 mm [place] Zapata (LOW) ? was deployed with a maximum inflation pressure of 14 ? atmospheres. ??Following stent deployment, the lesion was ? dilated using a 3.50mm NC EUPHORA 20 MM balloon with a maximum ? inflation pressure of 16 atmospheres. ? The final outcome was defined as successful. There was no ? residual stenosis following this intervention. The final ILZ ? flow was 3. ? Vascular Access: [...] dose administered prior to arrival in the manager cath lab. ?Recommended anti-platelet/anti-thrombotic regimen: ?Start aspirin 81 mg [...] ?to start weaning his inotropes/vasopressors. A [place] Colette catheter was ?placed demonstrating improvement in [...] assist device insertion, right heart ?catheterization, [place] (flow directed cath) insertion, access site ?angiography, vascular ultrasound, venous line / sheath insert and vascular ?closure device. ? Vahe S Shavonne, M.D. ? Electronically Signed by: Vahe Cobosstein, M.D. ? Report Finalized: 07/29/2024 ??13:55 ? Report Last Ammended: 07/30/2024 ??10:15 ? Procedure Note Vahe Marvin MD - 07/30/2024 [facility] Cardiac Catheterization/Intervention Report Patient Name: Korey Montoya Procedure Date: 07/29/2024 A #: [id number] Primary Physician: Vahe Marvin Case #: [id number] File Name: [id number] Catheterization Order Number: [id number] [facility] FinalReport [place], [place] Patient Name: Korey Montoya ID#:[id number] :1950 Procedure Date: July 29, 2024 Case [...] was designated as ASA Class IV. [facility]: Vulnerable. Diagnostic Tests: Electrocardiography: EKG was assessed by ECG. EKG was Abnormal. EKG showed STDeviation >= 0.5 mm. Medications Prior to Procedure: Angiotensin II Receptor Elvis and Statin. Indications for Diagnostic Cath: The priority of the diagnostic procedure was Emergent. Theindication for the manager cath lab visit is ACS less than or equal [...] 3.5 guiding catheter and a 3.[address] 20 Mhzusing Manual pullback. Imaging was [...] priority for the procedure was Emergent.The [facility] indication for the procedure was [...] The lesion was predilated with a 2.00mm [id number] MM balloon with a maximum inflation pressure of 12atmospheres. A premounted 3.00 x 22 mm [place] Zapata (LOW) wasdeployed with a maximum inflation pressure [...] atmospheres. A premounted 3.00 x 08 mm [place] Zapata(LOW) was deployed with a maximum inflation pressure [...] dose administered prior to arrival in the manager cath lab. Recommended anti-platelet/anti-thrombotic regimen: Start aspirin 81 mg [...] to start weaning his inotropes/vasopressors. A [place] Colette catheterwas placed demonstrating improvement in his [...] assist device insertion, right heart catheterization, [place] (flow directed cath) insertion, access site angiography, [...] - 16.5 g/dL 07/30/2024 7:30 AM [facility] Comment:The calculation of h emoglobin from hematocrit assumes a normal MCHC. Bicarbonate, POC 19.8(L) 20.0 - 26.0 mmol/L 07/30/2024 7:30 AM [facility] Carbon Dioxide, POC 21(L) 22 - 31 mmol/L 07/30/2024 7:30 AM [facility] Blood VENOUS BLOOD SPECIMEN / Unknown 07/29/2024 12:46 PM EST 07/30/2024 7:30 AM EST Vahe Marvin MD POINT OF CARE TEST O RDERABLES [facility] [place] [address] * (ABNORMAL) BLOOD GAS, POC (07/29/2024 12:12 PM EST) Sodium, POC 135 135 - 145 mmol/L 07/30/2024 7:30 AM [facility] Potassium, POC 3.8 3.5 - 5.0 mmol/L 07/30/2024 7:30 AM [facility] pH, POC 7.27(LLL) 7.35 - 7.45 07/30/2024 7:30 AM [facility] Ionized Calcium, POC 1.14(L) 1.15 - 1.33 mmol/L 07/30/2024 7:30 AM [facility] pCO2, POC 43 35 - 45 mmHg 07/30/2024 7:30 AM [facility] pO2, POC 131(H) 85 - 104 mmHg 07/30/2024 7:30 AM [facility] Base Excess, POC -7.0(L) -3.0 - 3.0 mmol/L 07/30/2024 7:30 AM [facility] Hematocrit, POC 36.0(L) 40.5 - 48.5 %PCV 07/30/2024 7:30 AM [facility] Hemoglobin, POC 12.2(L) 13.7 - 16.5 g/dL 07/30/2024 7:30 AM [facility] Comment:The calculation of h emoglobin from hematocrit assumes a normal MCHC. Bicarbonate, POC 19.7(L) 20.0 - 26.0 mmol/L 07/30/2024 7:30 AM [facility] Carbon Dioxide, POC 21(L) 22 - 31 mmol/L 07/30/2024 7:30 AM [facility] Blood VENOUS BLOOD SPECIMEN / Unknown 07/29/2024 12:12 PM EST 07/30/2024 7:30 AM EST Vahe Marvin MD POINT OF CARE TEST O RDERABLES Performing Organization Address City/State/[facility] Co de Phone Number [facility] [place] [address] documented in this encounter Visit Diagnoses Not [...] Routine documented in this encounter Care Teams Terrestrial Ecologist Relationship Specialty Start Date End Date Yoel Artis APRN [address] [place] [address] PCP - General Internal Medicine 11/18/22 07/29/24 documented as of this encounter
--- OUTSIDE RECORDS SUMMARY | 2024-09-14 10:20 | XMS_ITS | Encounter Summary ---
[place] [address] Care Team Providers Care Heel Sprayer Name Role Phone Yoel Artis Ute ALCALA Primary Care Provider [phone] Encounter Details Date Type Department Care Team (Late st Contact Info) Description 08/26/2023 Telephone [place] [phone] Madelyn Vasquez Social History Tobacco Use Types [...] - 08/26/2023 9:23 AM EST Korey Montoya [id number] Diagnosis/Indication: Rectal pain, fecal smearing Please review [...] ever had a/an Colonoscopy before? Yes: Date [id number] ago [facility] If yes, did you have any [...] your procedure. Who will likely be your mobile lounge driver or operator for the procedure? Please Verify the height [...] 10:00 AM EST Office Visit Cardiology at [address] [address] Mushtaq Murphy APRN documented as of this encounter Visit Diagnoses Not on filedocumented in this encounter Care Teams Heel Sprayer Relationship Specialty Start Date End Date Yoel Artis APRN [address] [place] [address] PCP - General Internal Medicine 11/18/22 07/29/24 documented as of this encounter
--- OUTSIDE RECORDS SUMMARY | 2024-09-14 10:20 | XMS_ITS | Encounter Summary ---
[place] [address] Care Team Providers Care Support Specialist Name Role Phone Alexia Mtz DATABASE DESIGNER Primary Care Provider [phone] Encounter Details Date Type Department Care Team (Late st Contact Info) Description 07/29/2024 External Results [place] [phone] Social History Tobacco Use Types Packs/Day Years Used Date Smoking Tobacco: Former Cigarettes Smokeless Tobacco: Never Alcohol Use Standard Drinks/Week Comments Not Currently 0 (1 standard drink = 0.6 oz pur e alcohol) [facility] Utilities Answer Date Recorded In the [...] time in the past 12 m [facility], were you homeless or living [...] 10:00 AM EST Office Visit Cardiology at [address] [address] Mushtaq Murphy APRN documented as of this encounter Procedures Procedure Name Priority Date/Time Associated Diagnosis Comments MISC EXTERNAL CARDIOLOGY RESULT Routine 07/29/2024 10:13 AM EST documented in this encounter Results * External Cardiology Result (07/29/2024 10:13 AM EST) Anatomical Region Laterality Modality Other Historical Provider EXTERNAL CARDIOLO GY RESULT documented in this encounter Visit Diagnoses Not on filedocumented in this encounter Care Teams Support Specialist Relationship Specialty Start Date End Date Alexia Mtz APRN [address] [place] [address] PCP - General Family Medicine 07/30/24 documented as of this encounter
--- OUTSIDE RECORDS SUMMARY | 2024-09-14 10:20 | XMS_ITS | Encounter Summary ---
[place] [address] Care Team Providers Care Battery Filler Name Role Phone Yoel Artis FREDRICK Primary Care Provider [phone] Encounter Details Date Type Department Care Team (Late st Contact Info) Description 01/16/2024 Interpretation Only [facility] [address] [place] [address] Chaparro Montana MD [address] [place] [address] Social History Tobacco Use Types Packs/Day Years [...] AM EST Office Visit Cardiology at [address] [address] Mushtaq Murphy APRN documented as of this encounter Procedures Procedure Name Priority Date/Time Associated Diagnosis Comments CT HEAD WO CONTRAST (GENERIC) STAT 01/16/2024 4:17 PM EDT documented in this encounter Results * CT Head wo Contrast (Generic) (01/16/2024 4:17 PM EDT) PT CLASS E RAD ADMITDTTM [id number] RAD PT RAD INFO [id number]^Haniss henry^Chaparro RAD EXAM DESC CTHEAD^CT Head w/o Contrast^RIS [facility] WORKSTATION ID [id number] [facility] Anatomical Region Laterality Modality Head Computed Tomogra phy 01/16/2024 4:03 PM EDT Impressions 01/16/2024 4:25 PM EDT No acute intracranial pathology. Thank you for letting us participate in the care of this patient. ??If you are a health care provider and have any questions regarding this report, please contact the number below. ??For patients who have questions please contact the health care team coordinator scheduler that requested your imaging first. ? Narrative [...] who have questions please contactthe health care team coordinator scheduler that requested your imaging first. Electronically signed by: Alejandro Tenorio MD, [facility]([phone]), at 01/16/2024 4:25 PM Chaparro Montana MD IMG CT ORDERABLES documented in this encounter Visit Diagnoses Not on filedocumented in this encounter Care Teams Battery Filler Relationship Specialty Start Date End Date Yoel Artis APRN [address] [place] [address] PCP - General Internal Medicine 11/18/22 07/29/24 documented as of this encounter
--- OUTSIDE RECORDS SUMMARY | 2024-09-14 10:20 | XMS_ITS | Encounter Summary ---
Author Organization [facility] Address [facility] [place] [address] Care Team Providers Care Chute Greaser Name Role Phone Yoel Artis Ute ALCALA Primary Care Provider [phone] Reason for Visit * Auth/Cert (Routine) Specialty Diagnoses / Procedures Referred By Theodore t Referred To Contact Diagnoses Anal spasm Fecal smearing Constipation, unspecified Rectal pain, fecal smearing Procedures PRO COLONOSCOPY, DIAGNOSTIC PRO COLONOSCOPY, BIOPSY PRO COLONOSCOPY, REMV LESN, SNARE COLONOSCOPY, DIAGNOSTIC (WRVU 3.26) Brandan Mcgovern MD [facility] [place] [address] [facility] Referral ID Status Reason Start Date Expiration Date Visits Re quested Visits Authorized [id number] 1 1 Encounter Details Date Type Department Care Team (Latest Contact Info) Description 08/30/2023 10:09 AM EST - 08/30/2023 12:19 PM EST Hospital En[place] [address] Brandan Mcgovern MD [facility] [place] [place] [address] Discharge Disposition: Home Social History Tobacco Use [...] occurs, please contact your Doctor. Please call [phone] before 8pm Mon-Fri with problems, questions or concerns. If you call after 8pm or on weekends, call the Hospital at [phone] and ask to speak to the Fiberglass Container Winding Operator electronic test technician and the foiling machine operator will contact that person for you. When should you call for help? Call [phone] anytime you think you may need emergency [...] any problems. Where can you learn more? [facility] View your After Visit Summary and more online at [email or web address] If you would like to provide feedback about your hospital experience, please call the Office of Patient and Family Relations at . If you have received this After Visit Summary in error, please immediately return it in person to the department, or notify the [facility] Privacy Office by calling toll free at between the hours of 8AM and 5PM to arrange for our retrieval of the documents at no cost to you. Content Version: 12.2 ?? [id number] [employer]. Care instructions adapted under license by [facility]. If you have questions about a medical condition or this instruction, always ask your healthcare professional. [employer] disclaims any warranty or liability for your [...] evening. 04/17/2023 08/04/2024 nitroGLYcerin (NITROLINGUAL) 400 mcg/spray [place], Non-AerosolIndications:P roctalgia fugax,Fecal smearing,Constipation, unspecified constipation type [...] AM EST Office Visit Cardiology at [address] [address] Mushtaq Murphy, FREDRICK documented as of this encounter Procedures Procedure Name Priority Date/Time Associated Diagnosis Comments SPECIMEN TO PATHOLOGY Routine 08/30/2023 11:23 AM EST SURGICAL PATHOLOGY REPORT Routine 08/30/2023 11:21 AM EST COLONOSCOPY Routine 08/30/2023 10:57 AM EST Colonoscopy, Remv Lesn, Snare ([id number]) 08/30/2023 10:44 AM EST Proctalgia fugax Fecal smearing Constipation, unspecified constipation type documented in this encounter Results * Specimen to Pathology (08/30/2023 11:23 AM EST) AP Specimen 08/30/2023 11:2 3 AM EST 08/30/2023 11:23 AM EST Narrative [facility] - 08/30/2023 11:23 AM EST Specimen requisition ordered. ??Separate Pathology report to follow Brandan Mcgovern MD PATHOLOGY/CYTOLOGY O JOSH Performing Organization Address [facility]/ZIP Co de Phone Number [facility] [place] [phone] * Surgical Pathology Report (08/30/2023 11:21 AM EST) Final Diagnosis [id number] ? Location: 4T; EA12; A The signing pathologist has (i) examined the relevant preparation(s) for the specimen(s) and (ii) rendered or confirmed the diagnosis(es). . ?Surgical Pathology DIAGNOSIS A - Sigmoid colon polyp, resection (Multiple): - ??Tubular adenoma. CR-PX Electronically signed by: ?Blake ORTEGA PhD, Yulia Verified: ??09/08/2023 14:48 ??Pathologist Performed at: ??-[facility] Dept. of Pathology, [place] [address] Screw Cutter: Fercho Chan MD, FCAP, ??CLIA Certificate: [id number] SPECIMEN(S) SUBMITTED A - Sigmoid colon polyp, resection (Multiple) CLINICAL INFORMATION 73-year-old male, history of rectal pain SPECIMEN PROCESSING A - Labeled/Fixativ e: Sigmoid colon polyp, formalin. Quantity/Size: Single, 0.8 cm. Tissue Description: Soft, candelaria tissue. Sections/Proces sing: Submitted in toto ??in 1 cassette labeled A1. ??sdy 09/08/2023 2:48 PM EST [facility] GI Biopsy 08/30/2023 11:2 1 AM EST 08/30/2023 11:21 AM EST Brandan Mcgovern MD PATHOLOGY/CYTOLOGY O JOSH Performing Organization Address City/[facility]/ZIP Co de Phone Number [facility] [address] [facility] [place] [address] * COLONOSCOPY (08/30/2023 10:57 AM EST) COLONOSCOPY [facility] Endoscopy Procedure Date: 08/30/2023 10:57 AM ? Patient Name: Korey Montoya ? Date of : 1950 ? Age: 73 ? Order #: [id number] ? Instrument Name: [id number] ? Procedure: ? Colonoscopy Indications: ? Rectal [...] preparation was evaluated ? using the BBPS (OurCrowd Bowel ? Preparation Scale) with scores of: [...] RN) documented in this encounter Care Teams Chute Greaser Relationship Specialty Start Date End Date Yoel Artis APRN [address] [place] [address] PCP - General Internal Medicine 11/18/22 07/29/24 documented as of this encounter
--- OUTSIDE RECORDS SUMMARY | 2024-09-14 10:20 | XMS_ITS | Encounter Summary ---
Author Organization [facility] [place] [address] Care Team Providers Care Tank Builder Supervisor Name Role Phone Alexia Mtz CARPENTER MATE Primary Care Provider Encounter Details Date Type Department Care Team (Late st Contact Info) Description 04/23/2024 [place] [address] Alexia Mtz, CARPENTER MATE [address] [place], [place] [id number] Elevated prostate specific antigen (PSA) Social History [...] AM EST Office Visit Cardiology at [address] [address] Mushtaq Murphy APRN documented as of this encounter Procedures Procedure Name Priority Date/Time Associated Diagnosis Comments PSA (ULTRASENSITIVE), TOTAL AND FREE Routine 04/23/2024 1:09 PM EDT Elevated prostate specific antigen (PSA) documented in this encounter Results * (ABNORMAL) PSA (Ultrasensitive), total and free (04/23/2024 1:09 PM EDT) Prostate Specific Antigen (Ultrasensitive) 5.24(H) 0.00-4.00 ng/mL ng/ml 04/23/2024 5:18 PM EDT [facility] Comment:The reference interv al (0 [...] Free 1.1 ng/ml 04/23/2024 5:18 PM EDT [facility] Comment:This result was gene rated using a [employer] Osiel immunoassay. Results obtained from other methods or manufacturers cannot be used interchangeably with this method. PSA % Free 21 % 04/23/2024 5:18 PM EDT [facility] Comment: Probability of finding DIRECTOR OF PUBLIC HEALTH on needle biopsy by age in years: [...] PM EDT Alexia Mtz APRN CHEMISTRY ORDERABLES [facility] [place] [address] documented in this encounter Visit Diagnoses Diagnosis Elevated prostate specific antigen (PSA) documented in this encounter Care Teams Tank Builder Supervisor Relationship Specialty Start Date End Date Alexia Mtz APRN [address] [place] [address] PCP - General Family Medicine 07/30/24 documented as of this encounter
--- OUTSIDE RECORDS SUMMARY | 2024-09-14 10:20 | XMS_ITS | Encounter Summary ---
[place] [address] Care Team Providers Care Interactive Video Technician Name Role Phone Yoel Artis APRN Primary Care Provider [phone] Reason for Referral * Consultation (Routine) - Closed Specialty Diagnoses / Procedures Referred By Theodore muro Referred To Contact Urology Diagnoses Raised prostate specific antigen PERSISTENTLY MILDLY ELEVATED PSA, URINARY FREQ Yoel Artis APRN [address] [place] [address] [facility] [place] [address] Referral ID Status Reason Start Date Expiration Date V isits Requested Visits Authorized [id number] Closed Consult, Test & Treat PCP Updated and/or Approved 07/30/2023 07/29/2024 6 6 Encounter Details Date Type Department Care Team (Late st Contact Info) Description 07/30/2023 Transcribe Orders eDH Incoming Referrals [phone] Yoel Artis APRN [address] [place] [address] Raised prostate specific antigen Social [...] AM EST Office Visit Cardiology at [address] [phone] Mushtaq Murphy APRN Scheduled Referrals Name Type Priority Associated Diagnoses Orde r Schedule Referral to Urology Outpatient Referral Routine Raised prostate specific antigen Ordered: 07/30/2023 documented as of this encounter Visit Diagnoses Diagnosis Raised prostate specific antigen Elevated prostate specific antigen (PSA) documented in this encounter Care Teams Interactive Video Technician Relationship Specialty Start Date End Date Yoel Artis APRN [address] [place] [address] PCP - General Internal Medicine 11/18/22 07/29/24 documented as of this encounter
--- OUTSIDE RECORDS SUMMARY | 2024-09-14 10:21 | XMS_ITS | Encounter Summary ---
Author Organization [facility] [place] [address] Care Team Providers Care Dish Washer Name Role Phone Yoel Artis APRN Primary Care Provider Encounter Details Date Type Department Care Team (Late st Contact Info) Description 12/23/2022 8:20 AM EDT - 12/23/2022 11:59 PM EDT Hospital Encounter [facility] [address] [place] [address] Yoel Artis APRN [address] [place] [address] Discharge Disposition: Home Social History Tobacco Use [...] 10:00 AM EST Office Visit Cardiology at [address] [phone] Mushtaq Murphy APRN documented as of this encounter Procedures Procedure Name Priority Date/Time Associated Diagnosis Comments PSA SCREEN Routine 12/23/2022 8:43 AM EDT documented in this encounter Results * (ABNORMAL) PSA Screen (12/23/2022 8:43 AM EDT) PSA Screen 4.37(H) 0.00 - 4.00 ng/mL [facility] Comment: PLEASE NOTE: The above [...] Artis APRN CHEMISTRY ORDERABLES Performing Organization Address City/State/[facility] Co de Phone Number [facility] [place] [address] documented in this encounter Visit Diagnoses Not on filedocumented in this encounter Care Teams Dish Washer Relationship Specialty Start Date End Date Yoel Artis APRN [address] [place] [address] PCP - General Internal Medicine 11/18/22 07/29/24 documented as of this encounter
--- OUTSIDE RECORDS SUMMARY | 2024-09-14 10:21 | XMS_ITS | Encounter Summary ---
Author Organization [facility] [place] [address] Care Team Providers Care Relief Cook Name Role Phone Unknown Primary Care Provider Unavailabl e Encounter Details Date Type Department Care Team (Late st Contact Info) Description 12/03/2018 Interpretation Only [address] [phone] Ac Albrecht PA [address] [place] [address] [place] [address] Social History Tobacco Use Types Packs/Day Years [...] AM EST Office Visit Cardiology at [address] [address] Mushtaq Murphy APRN documented as of this [...] Darvin Noyola [facility] ([phone]), at 12/03/2018 1:33 PM Narrative 12/03/2018 1:38 [...] by: Darvin Noyola [facility]([phone]), at 12/03/2018 1:33 PM Ac SERRANO IMG DX ORDERABLES documented in this encounter Visit Diagnoses Not on filedocumented in this encounter Care Teams Relief Cook Relationship Specialty Start Date End Date Unknown None PCP - General 08/04/10 01/16/19 documented as of this encounter
--- OUTSIDE RECORDS SUMMARY | 2024-09-14 10:21 | XMS_ITS | Encounter Summary ---
Author Organization [facility] [place] [address] Care Team Providers Care Leather Cleaner Name Role Phone Anibal Mtz MD Primary Care Provider [phone] Encounter Details Date Type Department Care Team (Late st Contact Info) Description 01/18/2019 3:00 PM EDT Interpretation Only Cardiology at [address] [address] Alberto Powell Jr., MD Dizziness Social History [...] AM EST Office Visit Cardiology at [address] [address] Mushtaq Murphy APRN documented as of this [...] giddiness documented in this encounter Care Teams Leather Cleaner Relationship Specialty Start Date End Date Anibal Mtz MD [address] [place] [address] PCP - General Family Medicine 01/17/19 11/17/22 documented as of this encounter
--- OUTSIDE RECORDS SUMMARY | 2024-09-14 10:21 | XMS_ITS | Encounter Summary ---
Author Organization [facility] [place] [address] Care Team Providers Care Hydrographic Engineer Name Role Phone Yoel Artis APRN Primary Care Provider Reason for Referral * Consultation (Routine) - Closed Specialty Diagnoses / Procedures Referred By Theodore muro Referred To Contact Gastroenterology Diagnoses Anal spasm motility- anal spasms Yoel Artis APRN [address] [place] [address] [facility] [address] [place] [phone] Referral ID Status Reason Start Date Expiration Date V isits Requested Visits Authorized [id number] Closed Consult, Test & Treat PCP Updated and/or Approved 11/18/2022 11/18/2023 6 6 Encounter Details Date Type Department Care Team (Late st Contact Info) Description 11/18/2022 Transcribe Orders eDH Incoming Referrals [phone] Yoel Artis APRN [address] [place] [address] Anal spasm Social History Tobacco [...] AM EST Office Visit Cardiology at [address] [address] Mushtaq Murphy APRN Scheduled Referrals Name Type Priority Associated Diagnoses Order Schedule Referral to Gastroenterology Outpatient Referral Routine Anal spasm Ordered: 11/18/2022 documented as of this encounter Visit Diagnoses Diagnosis Anal spasm documented in this encounter Care Teams Hydrographic Engineer Relationship Specialty Start Date End Date Yoel Artis APRN [address] [place] [address] PCP - General Internal Medicine 11/18/22 07/29/24 documented as of this encounter
--- OUTSIDE RECORDS SUMMARY | 2024-09-14 10:21 | XMS_ITS | Encounter Summary ---
Author Organization [facility] Address [facility] [place] [address] Care Team Providers Care Supervisor Sample Name Role Phone Unknown Primary Care Provider Unavailabl e Encounter Details Date Type Department Care Team (Late st Contact Info) Description 01/13/2019 9:05 PM EDT Ancillary Procedure Radiology Library at [facility] [place] [phone] Sunny Aviles MD [facility] [place] [address] Social History Tobacco Use Types Packs/Day Years [...] AM EST Office Visit Cardiology at [address] [place] [phone] Mushtaq Murphy, TEACHER DANCING documented as of this encounter Procedures Procedure [...] Aviles MD IMG FILM LIBRARY ORDERABLES [place], [place] documented in this encounter Visit Diagnoses Not on filedocumented in this encounter Care Teams Supervisor Sample Relationship Specialty Start Date End Date Unknown None PCP - General 08/04/10 01/16/19 documented as of this encounter
--- OUTSIDE RECORDS SUMMARY | 2024-09-14 10:21 | XMS_ITS | Encounter Summary ---
[place] [address] Care Team Providers Care Full Stack Net Developer Name Role Phone Anibal Mtz MD Primary Care Provider [phone] Encounter Details Date Type Department Care Team (Late st Contact Info) Description 11/08/2022 Interpretation Only [address] [phone] Eve Frost MD [address] [place] [phone] Social History Tobacco Use Types Packs/Day Years [...] AM EST Office Visit Cardiology at [address] [address] Mushtaq Murphy APRN documented as of this encounter Procedures Procedure Name Priority Date/Time Associated Diagnosis Comments XR CHEST PA AND LATERAL STAT 11/08/2022 10:34 AM EST documented in this encounter Results * XR Chest PA & Lateral (Generic) (11/08/2022 10:34 AM EST) PT CLASS E RAD ADMITDTTM RAD PT RAD INFO [id number]^C HANDER^SUNEE R RAD EXAM DESC XCXR2^XR CHEST [...] have questions please contact the health rn wound care that requested your imaging first. ? [...] who have questions please contactthe health rn wound care that requested your imaging first. Eve Frost MD IMG DX ORDERABLES documented in this encounter Visit Diagnoses Not on filedocumented in this encounter Care Teams Full Stack Net Developer Relationship Specialty Start Date End Date Anibal Mtz MD [address] [place] [address] PCP - General Family Medicine 01/17/19 11/17/22 documented as of this encounter
--- OUTSIDE RECORDS SUMMARY | 2024-09-19 11:33 | XMS_ITS | Clinical Summary ---
Author Organization [facility] Address [facility] [place] [address] Care Team Providers Care Nurse Midwife Name Role Phone Alexia Mtz FREDRICK Primary Care Provider Allergies No known active [...] Date Type Department Care Team Description 07/31/2024 4:30 PM EST - 07/31/2024 5:30 PM EST Surgery [place] [phone] Maldonado Luis MD CARDIAC CATHETERIZATION 07/29/2024 6:32 PM EST - 07/29/2024 11:59 PM EST Hospital Encounter [facility] at [address] [phone] Arvin Becerra MD Discharge Disposition: Home 07/29/2024 12:00 PM EST - 07/29/2024 12:54 PM EST Surgery [place] [phone] Vahe Marvin MD CARDIAC CATHETERIZATION 07/29/2024 11:45 AM EST - 08/04/2024 5:00 PM EST Hospital [place] [phone] Vahe Marvin MD Dadekian, Gregory A, MD Welch, Terrence D, MD Vinod, Poornima, MD Kostojchin, Anastas, MD Kussaga, Frank M, MD ST elevation myocardial infarction involving left anterior descending (LAD) coronary artery; HFrEF (heart failure with reduced ejection fraction) Discharge Disposition: Home 07/29/2024 Orders [place] [phone] Susannah Watts PA 07/29/2024 Interpretation Only [address] [phone] Deondre Ferrera MD 07/29/2024 Notes [place] [phone] Ivan Hernandez MD 07/29/2024 External [place] [address] 07/28/2024 Interpretation Only [address] [phone] Quinten Coffey MD 06/25/2024 Lab [place] [phone] Aubrey Cali MD Pyuria from Last 3 [...] drink = 0.6 oz pur e alcohol) [facility] Utilities Answer Date Recorded In the past 12 months has th e [employer], gas, oil, or water [employer] threatened to shut off services in your [...] any time in the past 12 m onths, were you homeless or living in a [...] AM EST Office Visit Cardiology at [address] [phone] Mushtaq Murphy, FREDRICK Health Maintenance Due Date Last Done Comments CT Colonography 1950 FIT DNA 1950 FIT 1950 Sigmoidoscopy 1950 Hepatitis C Screening 1970 Pneumoccocal Vaccine: 65+ (1 of 2 - PCV) 1971 Tetanus/Diphtheria/Pertussis Vaccines (1 - Tdap) 1971 Zoster vaccine (1 of 2) 2002 Advance Directive 2007 RSV Vaccine (1 - Risk 60-74 years 1-dose series) 2012 AAA Screen 2017 Covid-19 Vaccine ( season) 2024 Colonoscopy 08/30/2033 08/30/2023, 08/30/2023 Colorectal [...] ACUTE INFLAMMATION Routine 07/29/20 2:03 PM EST LIPID PANEL (REFLEX DIRECT [...] 1:43 PM EST CARDIAC CATHETERIZATION Routine 07/29/20 24 1:20 PM EST BLOOD GAS, POC Routine [...] 9.50 x10(3)/mc L 08/04/2024 6:39 AM [facility] Red Blood Cell 4.28(L) 4.58 - 5.54 x10(6)/mc L 08/04/2024 6:39 AM [facility] Hemoglobin 11.6(L) 13.7 - 16.5 g/dL 08/04/2024 6:39 AM [facility] Hematocrit 34.8(L) 40.5 - 48.5 % 08/04/2024 6:39 AM [facility] Mean Cell Volume 81.3(L) 82.9 - 93.1 fL 08/04/2024 6:39 AM [facility] Mean Cell Hemoglobin 27.1(L) 27.5 - 32.1 pg 08/04/2024 6:39 AM [facility] Mean Cell Hemoglobin Concentration 33.3 32.0 - 35.7 g/dL 08/04/2024 6:39 AM [facility] Platelet 178 145 - 357 x10(3)/mc L 08/04/2024 6:39 AM [facility] Mean Platelet Volume 10.6 7.6 - 12.9 fL 08/04/2024 6:39 AM [facility] RDW Standard Deviation 42.0 36.0 - 45.0 fL 08/04/2024 6:39 AM [facility] RDW coefficient of variation 14.3(H) 11.4 - 13.8 % 08/04/2024 6:39 AM [facility] NRBC% auto 0.0 % 08/04/2024 6:39 AM [facility] NRBC Absolute <0.01 <0.01 x10(3)/mc L 08/04/2024 6:39 AM [facility] Neutrophil % 72.1 % 08/04/2024 6:39 AM [facility] Neutrophil Absolute (ANC) - Automated 5.24 1.70 - 6.10 x10(3)/mc L 08/04/2024 6:39 AM [facility] Lymph % 16.8 % 08/04/2024 6:39 AM [facility] Lymph Absolute 1.22 0.90 - 3.20 x10(3)/mc L 08/04/2024 6:39 AM [facility] Monocyte % 8.5 % 08/04/2024 6:39 AM [facility] Monocyte Absolute 0.62 0.30 - 0.90 x10(3)/mc L 08/04/2024 6:39 AM [facility] Eos % 1.9 % 08/04/2024 6:39 AM [facility] Eos Absolute 0.14 0.00 - 0.40 x10(3)/mc L 08/04/2024 6:39 AM [facility] Basophil % 0.4 % 08/04/2024 6:39 AM [facility] Baso Absolute <0.04 0.00 - 0.10 x10(3)/mc L 08/04/2024 6:39 AM [facility] Immature Gran % 0.3 % 6:39 AM [facility] Immature Gran Absolute <0.04 0.00 - 0.04 x10(3)/mc L 08/04/2024 6:39 AM [facility] Blood VENOUS BLOOD SPECIMEN / Unknown Venipuncture / Unknown 08/04/2024 6:08 AM EST 08/04/2024 6:19 AM EST Bridgette Stauffer MD HEMATOLOGY ORDERABLE S [facility] [place] [address] * Magnesium (08/04/2024 6:08 AM EST) Only the most recent of8 resultswithin the time period is included. Pathologist [facility] Magnesium 0.85 0.69 - 1.07 mMol/L 08/04/2024 7:07 AM [facility] Blood VENOUS BLOOD SPECIMEN / Unknown Venipuncture / Unknown 08/04/2024 6:08 AM EST 08/04/2024 6:19 AM EST Bridgette Stauffer MD CHEMISTRY ORDERABLES [facility] [place] [address] * Basic Metabolic Panel (08/04/2024 6:08 AM EST) Only the most recent of7 resultswithin the time period is included. [facility] [address] Glucose 93 65 - 199 mg/dL 08/04/2024 7:07 AM [facility] Comment:Glucose Concentratio n >=200 mg/dL plus symptoms is consistent with Diabetes Mellitus. Blood Urea Nitrogen 14 10 - 20 mg/dL 08/04/2024 7:07 AM [facility] Creatinine 1.07 0.80 - 1.50 mg/dL 08/04/2024 7:07 AM [facility] Sodium 138 135 - 145 mMol/L 08/04/2024 7:07 AM [facility] Potassium 4.3 3.5 - 5.0 mMol/L 08/04/2024 7:07 AM [facility] Chloride 107 98 - 107 mMol/L 08/04/2024 7:07 AM [facility] Carbon Dioxide 23 22 - 31 mMol/L 08/04/2024 7:07 AM [facility] Anion Gap 8 5 - 15 mMol/L 08/04/2024 7:07 AM [facility] Calcium 8.5 8.5 - 10.5 mg/dL 08/04/2024 7:07 AM EST [facility] Est Glomerular Filtration Rate - Male 74 mL/min/1. 73 m?? 08/04/2024 7:07 AM EST [facility] Comment: This patient's estimated GFR [...] Stauffer MD CHEMISTRY ORDERABLES Performing Organization Address City/[facility] Co de Phone Number [facility] [place] [address] * POC, GLUCOSE (08/02/2024 7:47 AM EST) Only the most recent of16 resultswithin the time period is included. [facility] Signature Glucometer, POC 89 65 - 199 mg/dL 08/02/2024 7:47 AM EST [facility] Comment:Supplemental ranges: <140 mg/dL before meals <180 mg/dL all other times of the day. Blood CAPILLARY BLOOD / Unknown 08/02/2024 7:47 AM EST 08/02/2024 7:47 AM EST Arnel Parker MD POINT OF CARE TEST O RDERABLES Performing Organization Address City/[facility] Co de Phone Number [facility] [place] [address] * Scan Doc: Telemetry Strips (08/02/2024 7:37 AM EST) Only the most recent of3 resultswithin the time period is included. Narrative 08/02/2024 7:37 AM EST Ordered by an unspecified provider. Scanning Provider MEDIA MGR SCAN EXT O RDR/RSLT * Potassium (08/01/2024 8:39 PM EST) Only the most recent of4 resultswithin the time period is included. Potassium 4.0 3.5 - 5.0 mMol/L 08/01/2024 9:21 PM EST [facility] Blood VENOUS BLOOD SPECIMEN / Unknown Venipuncture / Unknown 08/01/2024 8:39 PM EST 08/01/2024 8:51 PM EST Jay Silverio MD CHEMISTRY ORDERABL ES [facility] [place] [id number] * (ABNORMAL) Cooximetry, POC (08/01/2024 10:45 AM EST) Only the most recent of2 resultswithin the time period is included. pO2, Coox 32 mmHg 08/01/2024 10:48 AM EST [facility] Hemoglobin, Coox 12.9(L) 13.7 - 16.5 g/dL 08/01/2024 10:48 AM EST [facility] Oxyhemoglobin, Coox 66.7 % 08/01/2024 10:48 AM [facility] Carboxyhemoglo bin, Coox 1.1 % 08/01/2024 10:48 AM EST [facility] Comment: Nonsmokers: 0.5-1.5% COHB ?? Smokers: Variable ??but usually less than 10% ?? Toxic: 20-30% COHB ?? Lethal: Greater than 60% COHB Methemoglobin, Coox 0.3 <=1.5 % 08/01/2024 10:48 AM EST [facility] Blood (Mixed Venous) 08/01/2024 10:45 AM EST 08/01/2024 10:48 AM EST Arnel Parker MD POINT OF CARE TEST O RDERABLES [facility] [place] [address] * CARDIAC CATHETERIZATION (07/31/2024 5:53 PM EST) Only the most recent of2 resultswithin the time period is included. Anatomical Region Laterality Modality Other Narrative 08/01/2024 12:37 PM EST ?[facility] ? Cardiac Catheterization/Intervention Report ? Patient Name: Korey Montoya Kyrie. ? Procedure Date: 07/31/2024 ? A #: [id number] ? Primary Physician: Janelle, Maldonado T ? Case #: [id number] ? File Name: [id number] ? Catheterization Order Number: [id number] ? [facility] ? Final Report [place], [place] ? Patient Name: ? Korey Montoya ?ID#: ?[id number] ? : ?1950 ? Procedure Date: ? July 31, 2024 ?Case #: ? [id number] ? Room: ? 1 ? Case Physician: ? Maldonado T Janelle, M.D. ?Start: ?17:10 ? Admission: ??07/29/2024 ? [...] ? Comments: ?Impella removed from the right BOAT WRAPPER with deployment of Perclose and ?Angioseal. ??Good hemostasis. ?The attending physician was present for the entire procedure. ?Dr. Maldonado Luis M.D. was present during the moderate sedation ?intraservice time as documented by the sedation nurse. ??Case time = 00:35. ?Dr. Maldonado T Janelle, M.D. performed the vascular closure device and ?ventricular assist device removal. ? Maldonado Luis M.D. ? Electronically Signed by: Maldonado Luis M.D. ? Report Finalized: 08/01/2024 ??12:31 ? Procedure Note Maldonado Luis MD - 08/01/2024 [facility] Cardiac Catheterization/Intervention Report Patient Name: Korey Montoya Procedure Date: 07/31/2024 A #: [id number] Primary Physician: Maldonado Luis Case #: [id number] File Name: [id number] Catheterization Order Number: [id number] [facility] FinalReport [place], [place] Patient Name: Korey Montoya ID#:[id number] :1950 Procedure Date: July 31, 2024 Case [...] was designated as ASA Class IV. The [facility] clinical frailtyscale is 4: Vulnerable. Diagnostic [...] procedures. Comments: Impella removed from the right BOAT WRAPPER with deployment of Perclose and Angioseal. Good [...] 7.35 - 7.45 07/31/2024 8:30 AM EST [facility] PCO2, Arterial 29(L) 35 - 45 mmHg 07/31/2024 8:30 AM EST [facility] PO2, Arterial 71(L) 85 - 104 mmHg 07/31/2024 8:30 AM [facility] Bicarbonate, Arterial 20.6 20.0 - 26.0 mmol/L 07/31/2024 8:30 AM [facility] Base Excess, Arterial -3.0 -3.0 - 3.0 mmol/L 07/31/2024 8:30 AM [facility] Hemoglobin, Arterial 12.3(L) 13.7 - 16.5 g/dL 07/31/2024 8:30 AM [facility] Oxyhemoglobin, Arterial 94.4 94.0 - 97.0 % 07/31/2024 8:30 AM [facility] Carboxyhemoglobin , Arterial 0.7 % 07/31/2024 8:30 AM [facility] Comment: Nonsmokers: 0.5-1.5% COHB ?? Smokers: Variable ??but usually less than 10% ?? Toxic: 20-30% COHB ?? Lethal: Greater than 60% COHB Methemoglobin, Arterial 0.3 <=1.5 % 07/31/2024 8:30 AM [facility] Sodium, Arterial 138 135 - 145 mmol/L 07/31/2024 8:30 AM [facility] Potassium, Arterial 3.5 3.5 - 5.0 mmol/L 07/31/2024 8:30 AM [facility] Chloride, Arterial 109(H) 98 - 107 mmol/L 07/31/2024 8:30 AM [facility] Lactate, Arterial 0.8 0.5 - 2.2 mmol/L 07/31/2024 8:30 AM [facility] Fraction of Inspired Oxygen 21 % 07/31/2024 8:30 AM [facility] PF Ratio 338 Ratio 07/31/2024 8:30 AM [facility] Comment:PF ratio calculated using the non-temperature corrected pO2 result. IONIZED CALCIUM, ARTERIAL 1.08(L) 1.15 - 1.33 mmol/L 07/31/2024 8:30 AM [facility] Glucose, Arterial 86 65 - 199 mg/dL 07/31/2024 8:30 AM [facility] Comment:Glucose Concentratio n >=200 mg/dL plus symptoms is consistent with Diabetes Mellitus. Blood ARTERIAL BLOOD / Unknown 07/31/2024 8:29 AM EST 07/31/2024 8:30 AM EST Arnel Parker MD POINT OF CARE TEST O RDERABLES Performing Organization Address City/[facility]/ZIP Co de Phone Number [facility] [place] [address] * (ABNORMAL) Hepatic Function Panel (07/31/2024 1:08 AM EST) Albumin 3.1(L) 3.2 - 5.2 g/dL 07/31/2024 1:46 AM [facility] Aspartate Aminotransferase 192(H) <=39 unit/L 07/31/2024 1:46 AM [facility] Alanine Aminotransferase 59(H) 0 - 55 unit/L 07/31/2024 1:46 AM [facility] Alkaline Phosphatase 46 40 - 130 unit/L 07/31/2024 1:46 AM [facility] Bilirubin, Total 0.4 <=1.3 mg/dL 07/31/2024 1:46 AM [facility] Bilirubin, Direct <0.2 0.0 - 0.3 mg/dL 07/31/2024 1:46 AM [facility] Protein, Total 5.0(L) 6.1 - 8.0 g/dL 07/31/2024 1:46 AM [facility] Blood VENOUS BLOOD SPECIMEN / Unknown Venipuncture / Unknown 07/31/2024 1:08 AM EST 07/31/2024 1:18 AM EST Arnel Parker MD CHEMISTRY ORDERABLES Performing Organization Address City/[facility]/ZIP Co de Phone Number [facility] [place] [address] * (ABNORMAL) Phosphorus (07/30/2024 3:08 PM EST) Only the most recent of3 resultswithin the time period is included. Phosphorus 2.1(L) 2.5 - 4.5 mg/dL 07/30/2024 3:58 PM EST [facility] Blood VENOUS BLOOD SPECIMEN / Unknown Venipuncture / Unknown 07/30/2024 3:08 PM EST 07/30/2024 3:12 PM EST Jay Silverio MD CHEMISTRY ORDERABL ES [facility] [place] [address] * ECHO LMTD W CONTRAST W LMTD SPEC DOPP COLOR DOPP (07/30/2024 11:42 AM EST) Anatomical Region Laterality Modality Cardiac Other 07/30/2024 10:2 2 AM EST Narrative 07/30/2024 12:34 PM EST 1 [place] [address] ? Echocardiogram Report Name: MONTOYA KOREY Kyrie ? Study Date: 07/30/2024 10:22 AMBP: 124/66 mmHg : 1950 ? Height: 168 cm ? Account: [id number] Age: 74 yrs ? Weight: 65 kg Gender: Male ?BSA: 1.7 m2 Ordering Physician: Jay Silverio MD Referring Physician: DEONDRE FERRERA Performed By: OMERO Millan Reason For Study: ST elevation myocardial infarction involving left anterior descending (LAD) coronary artery Interpreting Fellow: Ivan Hernandez. Exam Location: [facility]. Interpretation Summary Left ventricle is [...] Compared to the overnight study by the commissions coordinator fellow the impella position is stable. 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 Procedure Limited - 78686. Image enhancement Definity was used for both [...] Note Kathleen Banda MD - 07/30/2024 1 [place] [address] Echocardiogram Report Name: KOREY MONTOYA Study Date: 0:22 AMBP: 124/66 mmHg : 1950 Height: 168 cm Account: [id number] Age: 74 yrs Weight: 65 kg Gender: Male BSA: 1.7 m2 Ordering Physician: Jay Silverio MD Referring Physician: DEONDRE FERRERA Performed By: OMERO Millan Reason For Study: ST elevation myocardial infarction involving leftanterior descending (LAD) coronary artery Interpreting Fellow: Ivan Hernandez. Exam Location: [facility]. Interpretation Summary Left ventricle is [...] Compared to the overnight study by the commissions coordinator fellow the impella positionis stable. The global left ventricular systolic function has improvedpredominantly via recruitment outside the LAD territory which remains akinetic. Procedure Limited - 30833. Image enhancement Definity was used for both [...] 8,651(H) <=22 ng/L 07/30/2024 9:06 AM EST [facility] Comment: This patient's troponin T [...] can be found in the [facility] Test Catalog Troponin - [email or web address]/catalogs/[email or web address] Reference: Fourth [place] Definition of Myocardial Infarction. Journal of the [place] [employer] 2018;72:9452-4222 Blood VENOUS BLOOD SPECIMEN / Unknown Venipuncture / Unknown 07/30/2024 8:09 AM EST 07/30/2024 8:26 AM EST Jay Silverio MD CHEMISTRY ORDERABL ES Performing Organization Address City/State/[facility] Co de Phone Number [facility] [place] [address] * Echocardiogram Transthoracic (07/30/2024 1:41 AM EST) Anatomical Region Laterality Modality Cardiac Other 07/30/2024 1:41 AM EST Narrative 07/30/2024 8:23 AM EST [address] [place] [address] ? Echocardiogram Report Name: KOREY MONTOYA ? Study Date: 07/30/2024 01:41 AM : 1950 ? Height: 168 cm Age: 74 yrs ? Weight: 5.9 kg Gender: Male ?BSA: 0.63 m2 Performed By: Beatris Ching MD Reason For Study: STEMI, VT History: ASCVD, HTN, HLD Interpreting Fellow: Beatris Chign. Interpretation Summary This is a limited study performed by a fellow commissions coordinator to evaluate for cardiogenic shock with [...] study available for comparison. Procedure Limited - 21162. Suboptimal quality. There is sinus bradycardia. Left [...] Note Kathleen Banda MD - 07/30/2024 1 [place] [address] Echocardiogram Report Name: KOREY MONTOYA Study Date: 07/30/2024 01:41AM : 1950 Height: 168 cm Age: 74 yrs Weight: 5.9 kg Gender: Male BSA: 0.63 m2 Performed By: Beatris Ching MD Reason For Study: STEMI, VT History: ASCVD, HTN, HLD Interpreting Fellow: Beatris Ching. Interpretation Summary This is a limited study performed by a fellow commissions coordinator to evaluate forcardiogenic shock with impella in. [...] study available for comparison. Procedure Limited - 78251. Suboptimal quality. There is sinus bradycardia. Left [...] Recheck AB POSITIVE 07/29/2024 10:13 PM EST [facility] Blood VENOUS BLOOD SPECIMEN / Unknown Venipuncture / Unknown 07/29/2024 6:43 PM EST 07/29/2024 7:15 PM EST Jay Silverio MD BLOOD BANK LAB ORD ERABLES [facility] [place] [place] [address] * Type and screen ([facility]/[place]) (07/29/2024 5:56 PM EST) Pathologist [facility] ABORH Type AB POSITIVE 07/29/2024 9:44 PM EST [facility] PATIENT HISTORY Not Found 07/29/2024 9:44 PM EST [facility] Expires at [id number] on: 08/01/2024 07/29/2024 9:44 PM EST [facility] ANTIBODY SCREEN AUTOMATED Negative 07/29/2024 9:44 PM EST [facility] T&S only valid at [facility] 07/29/2024 9:44 PM EST [facility] Blood VENOUS BLOOD SPECIMEN / Unknown Venipuncture / Unknown 07/29/2024 5:56 PM EST 07/29/2024 6:07 PM EST Narrative [facility] - 07/29/2024 9:44 PM EST This Type and Screen result is only valid at the [facility] Jay Silverio MD BLOOD BANK LAB ORD ERABLES Performing Organization Address City/[facility] Co de Phone Number [facility] [place] [place] [address] * EKG 12 Lead (07/29/2024 4:21 PM EST) Only the most recent of2 resultswithin the time period is included. [facility] [address] Ventricular rate 72 BPM MUSE SYSTEM Atrial Rate 72 BPM MUSE SYSTEM P-R Interval 168 ms MUSE SYSTEM QRS Duration 82 ms MUSE SYSTEM Q-T Interval 392 ms MUSE SYSTEM QTC Calculated (Bezet) 429 ms MUSE SYSTEM Calculated [place] 71 degrees MUSE SYSTEM Calculated [place] 77 degrees MUSE SYSTEM Calculated [place] 28 degrees MUSE SYSTEM INTERPRETATION Sinus rhythm with Premature supraventricular complexes and Occasional Premature ventricular complexes Low voltage QRS 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) Lateral injury pattern ACUTE [place] / STEMI Abnormal ECG When compared with ECG of 29-JUL-2024 13:43, (unconfirmed) Serial changes of evolving Anteroseptal infarct Present Confirmed by MD Marcus, Roverto (1963) on 07/31/2024 5:30:06 AM MUSE SYSTEM 07/29/2024 4:21 PM EST 07/31/2024 5:30 AM EST Jay Silverio MD ECG ORDERABLES MUSE SYSTEM * Blood culture (07/29/2024 4:08 PM EST) Only the most recent of2 resultswithin the time period is included. Blood Culture No growth at 120 hours 08/03/2024 5:01 PM EST [facility] Blood VENOUS BLOOD SPECIMEN / Unknown Venipuncture / Unknown 07/29/2024 4:08 PM EST 07/29/2024 4:15 PM EST Jay Silverio MD MICROBIOLOGY - BLO OD ORDERABLES Performing Organization Address City/[facility]/ZIP Co de Phone Number [facility] [place] [address] * XR Chest One View (07/29/2024 2:30 PM EST) Only the most recent of3 resultswithin the time period is included. WORKSTATION ID [id number] RAD Anatomical Region Laterality Modality Chest N/A [...] who have questions please contact the health congregational care pastor that requested your imaging first. ? Electronically signed by: Chris Candelaria MD, [facility] ([phone]), at 07/29/2024 3:21 PM Narrative 07/29/2024 3:21 [...] patients who have questions please contactthe health congregational care pastor that requested your imaging first. Electronically signed by: Chris Candelaria MD, [facility]([phone]), at 07/29/2024 3:21 PM Vahe Marvin MD IMG DX ORDERABLES * TSH [place] (07/29/2024 2:03 PM EST) Thyroid Stimulating Hormone 0.70 0.27 - 4.20 mcIU/mL 07/29/2024 2:52 PM EST [facility] Blood VENOUS BLOOD SPECIMEN / Unknown Venipuncture / Unknown 07/29/2024 2:03 PM EST 07/29/2024 2:14 PM EST Vahe Marvin MD CHEMISTRY ORDERABLES [facility] [place] [address] * CRP, acute inflammation (07/29/2024 2:03 PM EST) C-Reactive Protein <3.0 <=4.9 mg/L 07/29/2024 2:52 PM EST [facility] Blood VENOUS BLOOD SPECIMEN / Unknown Venipuncture / Unknown 07/29/2024 2:03 PM EST 07/29/2024 2:14 PM EST Vahe Marvin MD CHEMISTRY ORDERABLES [facility] [place] [place] [address] * (ABNORMAL) APTT (07/29/2024 2:03 PM EST) Partial Thromboplastin Time >160([facility]) 25 - 37 sec 07/29/2024 2:56 PM EST [facility] Blood VENOUS BLOOD SPECIMEN / Unknown Venipuncture / Unknown 07/29/2024 2:03 PM EST 07/29/2024 2:13 PM EST Vahe Marvin MD HEMATOLOGY ORDERABLE S [facility] [place] [place] [address] * (ABNORMAL) Prothrombin Time (07/29/2024 2:03 PM EST) Prothrombin Time 14.2(H) 9.4 - 12.5 sec 07/29/2024 2:56 PM EST [facility] International Normalization Ratio 1.3 <=4.9 07/29/2024 2:56 PM EST [facility] Comment: An INR < 2.0 [...] MD HEMATOLOGY ORDERABLE S Performing Organization Address City/State/[facility] Co de Phone Number [facility] [place] [address] * Hemoglobin A1c (07/29/2024 2:03 PM EST) Hemoglobin A1c 5.3 4.3 - 5.6 % 07/29/2024 2:41 PM EST [facility] Comment: Per ADA guidelines, without [...] red blood cell turnover may not be home office representative of glycemic control. Reference Interval: 4.3 - 5.6% 5.7 - 6.4%: Consistent with prediabetes >=6.5%: Consistent with diagnosis of diabetes mellitus Estimated Average Glucose 07/29/2024 2:41 PM EST [facility] Comment:Estimated Average Gl ucose not appropriate for patients over 70 years of age. Blood VENOUS BLOOD SPECIMEN / Unknown Venipuncture / Unknown 07/29/2024 2:03 PM EST 07/29/2024 2:14 PM EST [facility] - 07/29/2024 2:41 PM EST Estimated average glucose (eAG) is calculated from the equation described in: Quinten ALVES, Rikki J, Ren[place] R, et al. ??Translating the A1C assay into estimated average glucose values. ??Diabetes Care 2008:31(8):5741-4785. Additional resources are available on the ADA website (diabetes.org). Vahe Marvin MD CHEMISTRY ORDERABLES [facility] [place] [address] * Lipid Panel (Reflex Direct LDL) (07/29/2024 2:03 PM EST) Cholesterol, Total 133 mg/dL 07/29/2024 2:52 PM [facility] Comment: Desirable: < 200 mg/dL Borderline High: 200 - 239 mg/dL High: > or = 240 mg/dL Triglyceride 45 mg/dL 07/29/2024 2:52 PM [facility] Comment: Normal: <150 mg/dL Borderline High: 150-199 mg/dL High: 200-499 mg/dL Very High: > or =500 mg/dL HDL Cholesterol 58 mg/dL 4 2:52 PM [facility] Comment:Males: High Risk: <4 0 mg/dL LDL Cholesterol 64 mg/dL 4 2:52 PM [facility] Comment: Desirable: <100 mg/dL Above Desirable: 100-129 mg/dL Borderline High: 130-159 mg/dL High: 160-189 mg/dL Very High: > or =190 mg/dL Note: LDL calculation updated to the NIH LDL formula as of 04/15/2024 Non-HDL Cholesterol 75 mg/dL 07/29/2024 2:52 PM [facility] Comment: Desirable: <130 mg/dL Above Desirable: 130-159 mg/dL Borderline High: 160-189 mg/dL High: 190-219 mg/dL Very High: > or = 220 mg/dL Blood VENOUS BLOOD SPECIMEN / Unknown Venipuncture / Unknown 07/29/2024 2:03 PM EST 07/29/2024 2:14 PM EST [facility] - 07/29/2024 2:52 PM EST It [...] ACC/AHA Guidelines (most recently Rolf et al. [facility] 06/15/22): * For individuals with atherosclerotic [...] artery disease) Vahe Marvin MD CHEMISTRY ORDERABLES [facility] [place] [address] * (ABNORMAL) Comprehensive metabolic panel (07/29/2024 2:03 PM EST) Pathologist [facility] Glucose 243(H) 65 - 199 mg/dL 07/29/2024 3:11 PM EST [facility] Comment:Glucose Concentratio n >=200 mg/dL plus symptoms is consistent with Diabetes Mellitus. Blood Urea Nitrogen 13 10 - 20 mg/dL 07/29/2024 3:11 PM EST [facility] Creatinine 0.88 0.80 - 1.50 mg/dL 07/29/2024 3:11 PM EST [facility] Sodium 138 135 - 145 mMol/L 07/29/2024 3:11 PM [facility] Potassium 3.6 3.5 - 5.0 mMol/L 07/29/2024 3:11 PM [facility] Chloride 104 98 - 107 mMol/L 07/29/2024 3:11 PM [facility] Carbon Dioxide 19(L) 22 - 31 mMol/L 07/29/2024 3:11 PM [facility] Anion Gap 15 5 - 15 mMol/L 07/29/2024 3:11 PM [facility] Calcium 8.0(L) 8.5 - 10.5 mg/dL 07/29/2024 3:11 PM [facility] Protein, Total 6.0(L) 6.1 - 8.0 g/dL 07/29/2024 3:11 PM [facility] Albumin 3.6 3.2 - 5.2 g/dL 07/29/2024 3:11 PM [facility] Aspartate Aminotransferase 07/29/2024 3:11 PM [facility] Comment:Unable to report due to hemolysis. Alanine Aminotransferase 56(H) 0 - 55 unit/L 07/29/2024 3:11 PM [facility] Alkaline Phosphatase 58 40 - 130 unit/L 07/29/2024 3:11 PM [facility] Bilirubin, Total 0.5 <=1.3 mg/dL 07/29/2024 3:11 PM [facility] Est Glomerular Filtration Rate - Male 91 mL/min/1. 73 m?? 07/29/2024 3:11 PM [facility] Comment: This patient's estimated [...] PM EST Vahe Marvin MD CHEMISTRY ORDERABLES [facility] [place] [place] [address] * (ABNORMAL) Blood Gas, Venous POC (07/29/2024 2:01 PM EST) pH, Venous 7.30(L) 7.32 - 7.42 07/29/2024 2:02 PM EST [facility] PCO2, Venous 42 38 - 58 mmHg 07/29/2024 2:02 PM [facility] PO2, Venous 39 16 - 65 mmHg 07/29/2024 2:02 PM [facility] Bicarbonate, Venous 20.1(L) 22 - 31 mmol/L 07/29/2024 2:02 PM [facility] Base Excess, Venous -6.4(L) 1.9 - 4.5 mmol/L 07/29/2024 2:02 PM [facility] Hemoglobin, Venous 14.2 13.7 - 16.5 g/dL 07/29/2024 2:02 PM [facility] Oxyhemoglobin, Venous 69.3 % 07/29/2024 2:02 PM [facility] Carboxyhemoglobin , Venous 0.8 % 07/29/2024 2:02 PM [facility] Comment: Nonsmokers: 0.5-1.5% COHB ?? Smokers: Variable ??but usually less than 10% ?? Toxic: 20-30% COHB ?? Lethal: Greater than 60% COHB Methemoglobin, Venous 0.3 <=1.5 % 07/29/2024 2:02 PM [facility] Sodium, Venous 137 135 - 145 mmol/L 07/29/2024 2:02 PM [facility] Potassium, Venous 3.6 3.5 - 5.0 mmol/L 07/29/2024 2:02 PM [facility] Chloride, Venous 103 98 - 107 mmol/L 07/29/2024 2:02 PM [facility] Glucose, Venous 229(H) 65 - 199 mg/dL 07/29/2024 2:02 PM [facility] Comment:Glucose Concentratio n >=200 mg/dL plus symptoms is consistent with Diabetes Mellitus. Lactate, Venous 3.1(H) 0.5 - 2.2 mmol/L 07/29/2024 2:02 PM [facility] Ionized Calcium, Venous 1.11(L) 1.15 - 1.33 mmol/L 07/29/2024 2:02 PM [facility] Blood VENOUS BLOOD SPECIMEN / Unknown 07/29/2024 2:01 PM EST 07/29/2024 2:02 PM EST Vahe Marvin MD POINT OF CARE TEST O RDERABLES [facility] [place] [place] [address] * (ABNORMAL) BLOOD GAS, POC (07/29/2024 12:46 PM EST) Only the most recent of2 resultswithin the time period is included. Sodium, POC 139 135 - 145 mmol/L 07/30/2024 7:30 AM [facility] Potassium, POC 3.4(L) 3.5 - 5.0 mmol/L 07/30/2024 7:30 AM [facility] pH, POC 7.33(L) 7.35 - 7.45 07/30/2024 7:30 AM [facility] Ionized Calcium, POC 1.13(L) 1.15 - 1.33 mmol/L 07/30/2024 7:30 AM [facility] pCO2, POC 38 35 - 45 mmHg 07/30/2024 7:30 AM [facility] pO2, POC 94 85 - 104 mmHg 07/30/2024 7:30 AM [facility] Base Excess, POC -6.0(L) -3.0 - 3.0 mmol/L 07/30/2024 7:30 AM [facility] Hematocrit, POC 39.0(L) 40.5 - 48.5 %PCV 07/30/2024 7:30 AM [facility] Hemoglobin, POC 13.3(L) 13.7 - 16.5 g/dL 07/30/2024 7:30 AM [facility] Comment:The calculation of h emoglobin from hematocrit assumes a normal MCHC. Bicarbonate, POC 19.8(L) 20.0 - 26.0 mmol/L 07/30/2024 7:30 AM EST [facility] Carbon Dioxide, POC 21(L) 22 - 31 mmol/L 07/30/2024 7:30 AM EST [facility] Blood VENOUS BLOOD SPECIMEN / Unknown 07/29/2024 12:46 PM EST 07/30/2024 7:30 AM EST Vahe Marvin MD POINT OF CARE TEST O RDERABLES Performing Organization Address [facility] Co de Phone Number [facility] [place] [address] * External Cardiology Result (07/29/2024 10:13 AM [...] - GENER AL ORDERABLES Performing Organization Address [facility] Co de Phone Number [facility] [place] [place] [address] * COLONOSCOPY (08/30/2023 10:57 AM EST) COLONOSCOPY [facility] Endoscopy Procedure Date: 08/30/2023 10:57 AM ? Patient Name: Korey Montoya ? Date of : 1950 ? Age: 73 ? Order #: [id number] ? Instrument Name: [id number] ? Procedure: ? Colonoscopy Indications: ? Rectal [...] preparation was evaluated ? using the BBPS ([place] Bowel ? Preparation Scale) with scores of: [...] the entire procedure. ? 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
--- OUTSIDE RECORDS SUMMARY | 2024-09-19 11:34 | XMS_ITS | Encounter Summary ---
Author Organization [facility] Address [facility] [place] [address] Care Team Providers Care Supervisor [employer] Name Role Phone Juno RidgeAlexia shell Shun ALCALA Primary Care Provider [phone] Reason for Referral * Consultation (Routine) - Authorized Specialty Diagnoses / Procedures Referred By Conteleazar t Referred To Contact Cardiology Diagnoses HFrEF (heart failure with reduced ejection fraction) [facility] S/P D/C acute HFrEF Alex Small MD [facility] [place] [address] Mushtaq Murphy APRN [facility] [place] [address] Referral ID Status Reason Start Date Expiration Date Visits Requested Visits Authorized [id number] Authorized Consult, Test & Treat 08/04/2024 08/04/2025 1 1 * Consultation (Routine) - Authorized Specialty Diagnoses / Procedures Referred By Contac t Referred To Contact Cardiology Diagnoses ST elevation myocardial infarction involving left anterior descending (LAD) coronary artery Yrn Ward MD [facility] [place] [address] Cardiac Rehab, [address] [place] [address] Referral ID Status Reason Start Date Expiration Date Visits Requested Visits Authorized [id number] Authorized Consult, Test & Treat 08/04/2024 01/31/2025 36 36 Reason for Visit * Auth/Cert (Routine) Specialty Diagnoses / Procedures Referred By Contac t Referred To Contact Diagnoses STEMI (ST elevation myocardial infarction) STEMI Procedures ER IPI Vahe Marvin MD [facility] [place] [address] [facility] Referral ID Status Reason Start Date Expiration Date Visits Re quested Visits Authorized [id number] 1 1 Encounter Details Date Type Department Care Team (Latest Contact Info) Description 07/29/2024 11:45 AM EST - 08/04/2024 5:00 PM EST Hospital Encounter Cardiovascular [place] [phone] Vahe Marvin MD [facility] [place] [address] Jay Silverio MD [facility] [place] [address] Krystal Parker MD [facility] [place] [address] Bridgette Stauffer MD [facility] [place] [address] Yrn Ward MD [facility] [place] [address] Alex Small MD [facility] [place] [address] ST elevation myocardial infarction involving left anterior [...] Korey Montoya Patient Age: 74 y.o. Language: Djiboutian Race: White Ethnicity: Not nor Admit date: [...] please contact your inpatient physician through the [facility] Occupational Therapist Assistants . Issues afterhours and on weekends will [...] EKG. Patient transferred via air ambulance to [facility] on 07/29 for LHC and LOW to [...] EKG. Was transferred via air ambulance to [facility] for further management and LHC demonstrated 100% occlusion. No significant RCA, LMCA, or LCX disease. LOW placed in LAD with some residual distal disease meriting placement of overlapping distal stent. TTE showed apical akinesis and inferior hypokinesis with EF 20%. RHC showed elevated filling pressures. Impella placed and P-level 6 at time of transfer to [facility]. CI initially 1.97, improved to [...] the next year. Access was via right RACEHORSE TRAINER and this sitewas clean, dry and intact [...] for Chest pain. Replaces: nitroGLYcerin 400 mcg/spray [place], Non-Aerosol 0.4 mg Quantity: 90 tablet Refills: [...] Refills: 0 STOPPED Medications nitroGLYcerin 400 mcg/spray [place], Non-Aerosol Commonly known as: NITROLINGUAL Replaced by: [...] of one year. After this time, your agency sales development associate will determine if you need to continue [...] away. Stay on the phone. The emergency valve seater operator will tell you what to do. [...] appointments: During 8am-5pm Tuesday through Tuesday call [phone] to speak with a nurse in the cardiology clinic All other times call [phone] and ask to speak to the linen supply load builder python web developer. Follow up Appointments: PCP Alexia Mtz, CONCRETE FINISHER [phone]. Please call to establish a follow up appointment within 1-2 weeks of discharge. Cardiology. Referral to heart failure has been sent. General Instructions None Future Appointments and Orders Future Orders Complete By Expires Referral to Cardiac Rehab [[id number] Custom] As directed Process Instructions: If no progress note charted, please enter Clinical details in comments. Scheduling Instructions: Questions: My question or request is: STEMI, PCI- cardiac rehab at [facility] Referral to Cardiology [REF12 Custom] [...] of one year. After this time, your agency sales development associate will determine if you need to continue [...] away. Stay on the phone. The emergency valve seater operator will tell you what to do. [...] appointments: During 8am-5pm Tuesday through Tuesday call [phone] to speak with a nurse in the cardiology clinic All other times call [phone] and ask to speak to the linen supply load builder python web developer. Follow up Appointments: PCP Alexia Mtz, CONCRETE FINISHER [phone]. Please call to establish a follow up [...] /GI: moving bowels and bladder appropriately. * oTnya Watson RN - 08/03/2024 6:43 PM EST 74 y/o male recovering from STEMI complicated by cardiogenic shock requiring Impella. Plan to discharge home tomorrow. Vitals stable Tolerated initiation of heart failure medications today, ambulated independently multiple times, provided literature on management of heart failure including signs and symptoms that require follow upcare. Family at bedside, very supportive * Zaida Dubose PT - 08/03/2024 2:03 PM EST Physical Therapy Note Treatment # 2 Patient profile: Korey Montoya is a 74 y.o. male w/ PMH of hypertension, HLD, and BPH who presents for chief concern of chest pain after being found to have ST elevations on EKG. Patient transferred via air ambulance to [facility] on 07/29 for LHC and LOW to [facility] for 100% occlusion Social History: Pt lives with his in a 1 level home with 2 NAOMI. 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 He [...] Total time: 35 (tef) minutes Time IN/OUT: [id number] ZAIDA DUBOSE PT Pager: [phone] Physical Therapy Inpatient Rehabilitation Department * Yrn Ward MD - 08/03/2024 10:38 AM EST CV HOSPITALIST 2 - [facility] DAILY PROGRESS NOTE Page [phone] to reach a provider 04/04 Admit Date: [...] Skin: warm Labs: Recent Labs 08/03/24 0516 08/02/240 08/01/2441707/31/2410707/30/24210 WBC 7.85 8.51 8.51 10.25* 11.25* HGB 11.8* 12.2* 11.2* 11.2* 12.2* HCT 35.9* 35.8* 33.8* 33.9* 37.1* PLATELET 142* 111* 94* 109* 166 MCV 81.0* 81.2* 82.0* 82.1* 82.4* Recent Labs 08/03/2416 08/02/240 08/01/24203808/01/2481908/01/2441707/31/2410707/30/24200207/30/24 1508 07/30/2421007/29/24201007/29/24 1403 NA 137 [...] or before 29-JUL-2024) Lateral injury pattern ACUTE NC / STEMI Abnormal ECG When compared with [...] Compared to the overnight study by the python web developer fellow the impella position is stable. 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 [facility] 07/29/24 Conclusions: * One vessel coronary artery disease (LAD) * Mild pulmonary hypertension * Elevated pulmonary capillary wedge pressure * Successful stent insertion of the proximal LAD lesion * See Dual Antiplatelet (DAPT) Recommendations above * Successful impella placement for cardiogenic shock. Telemetry: I have personally reviewed and interpreted the telemetry from the last 24 hours. [facility] Assessment: ASSESSMENT: Korey Montoya is a 74 y.o. male w/ PMH of hypertension, HLD, and BPH who presents for chief concern of chest pain after being found to have ST elevations on EKG. Patient transferred via air ambulance to [facility] on 07/29 for LHC and LOW to [...] to be determined OT: PCP Alexia Mtz, CONCRETE FINISHER [phone] * Zaida Dubose, PT - 08/02/2024 2:08 PM EST Physical Therapy Evaluation Patient profile: Korey Montoya is a 74 y.o. male w/ PMH of hypertension, HLD, and BPH who presents for chief concern of chest pain after being found to have ST elevations on EKG. Patient transferred via air ambulance to [facility] on 07/29 for LHC and LOW to LAD for 100% occlusion Social History: Pt lives with his in a 1 level home with 2 NAOMI. 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 He [...] Total time: 37 (eval) minutes Time IN/OUT: 5212-2723 ZAIDA DUBOSE PT Pager: [phone] Physical Therapy [...] EKG. Patient transferred via air ambulance to [facility] on 07/29 for LHC and LOW to LAD for 100% occlusion. TTE showed apical akinesis and inferior hypokinesis with EF 20%. RHC showed elevated filling pressures. Impella placed and P-level 6 at time of transfer to [facility]. CI initially 1.97, improved to 2.2 After impella. Received about 3 L of fluid during procedural course. Patient initially required norepinephrine 30, epinephrine 10, and vasopressin 0.04 for hemodynamic support, which was weaned upon arrival to [facility] to norepinephrine 20and levo 0.04 [...] PCP: Alexia Mtz APRN PCP phone number: [phone] Date of Admission: 07/29/2024 ( Hospital Day 4 days ) Attending:Bridgette Stauffer MD ID: Korey Montoya is a 74 y.o. male w/ PMH of hypertension, HLD, and BPH on Hospital Day4 for chief concern of chest pain after being found to have ST elevations on EKG. Patient transferred via air ambulance to [facility] on 07/29 for LHC and LOW to [...] 07/29/24 1621 PHART 7.48* 7.44 7.38 7.37 [id number] 29* 29* 34* 36 PO2ART 71* 109* 141* 71* ARY1GGF 20.6 19.4* 19.5* 20.4 VBG (Venous Blood Gas) Recent Labs 07/29/24 1401 PHVEN 7.30* PO2VEN 39 DEY3GVQ 20.1* Mixed Venous Sat No results for input(s): Y5QULR3 in the last 168 hours. Objective: Vitals [...] Infusing 07/30/24 06 Dressing Status Clean;Dry;Intact 07/30/24 0600 Dressing Change [...] 82.1* 82.4* 83.4 Recent Labs 08/02/24 0420 08/01/24 2039 08/01/24 0820 08/01/24 0418 07/31/24 0108 07/30/24200207/30/24 [...] 07/29/24 1621 PHART 7.48* 7.44 7.38 7.37 IBX9EAC 29* 29* 34* 36 PO2ART 71* 109* 141* 71* VVT4JYF 20.6 19.4* 19.5* 20.4 VBG (Venous Blood Gas) Recent Labs 07/29/24 1401 PHVEN 7.30* PO2VEN 39 ONH2BSS 20.1* Mixed Venous Sat No results for input(s): P8LCYP5 in the last 168 hours. Microbiology: Microbiology Results (Last 30 days) Procedure Component Value Units Date/Time Blood culture [[id number]] Collected: 07/29/241607 Lab Status: Preliminary result Specimen: Blood, Venous Updated: 08/01/24 170 Blood Culture No growth at 72 hours Blood culture [[id number]] Collected: 07/29/241607 Lab Status: Preliminary result Specimen: Blood, Venous Updated: 08/01/241700 Blood Culture No growth at 72 hours Imaging: Results for orders placed or performed during the hospital encounter of 07/29/24 XR Chest One View (Exam End: 07/29/2024 2:30 PM) Result Value WORKSTATION ID [id number] Impression 1. No pulmonary edema. 2. No pleural effusion. 3. No pneumothorax. Thank you for letting us participate in the care of this patient. If you are a health care provider and have any questions regarding this report, please contact the number below. For patients who have questions please contact the health day care attendant that requested your imaging first. Electronically signed by: Chris Candelaria MD, [facility] ([phone]), at 07/29/2024 3:21 PM TTE ( 07/30/24) [...] Compared to the overnight study by the python web developer fellow the impella position is stable. The [...] EKG. Patient transferred via air ambulance to [facility] on 07/29 for LHC and LOW to [...] Susannah Ornelas MD Internal Medicine, PGY-1 Cardiology, [facility] 08/02/24 12:45 PM CARDIOLOGY STAFF [...] today). Transfer to floor. Krystal Parker MD, [facility], [facility] Staff Commanding Officer Traffic Division emergency management program specialist * Gagan Catherine MD - 08/01/2024 11:12 [...] EKG. Patient transferred via air ambulance to [facility] on 07/29 for LHC and LOW to [...] PCP: Alexia Mtz APRN PCP phone number: [phone] Date of Admission: 07/29/2024 ( Hospital Day 3 days ) Attending:Krystal Parker MD ID: Korey Montoya is a 74 y.o. male w/ PMH of hypertension, HLD, and BPH on Hospital Day3 for chief concern of chest pain after being found to have ST elevations on EKG. Patient transferred via air ambulance to [facility] on 07/29 for LHC and LOW to [...] bicarbonate 25 mEq infusion 12 mL/hr at 08/01/24599 AMIOdarone 0.5 mg/min (08/01/24 0641) heparin (porcine) infusion Stopped (07/31/24 1401) ABG (Arterial Blood Gas) Recent Labs 07/31/24 0829 07/30/24 0816 07/30/24 0057 07/29/24 1621 PHART 7.48* 7.44 7.38 7.37 YNL3MXZ 29* 29* 34* 36 PO2ART 71* 109* 141* 71* CWP4OWM 20.6 19.4* 19.5* 20.4 VBG (Venous Blood Gas) Recent Labs 07/29/24 1401 PHVEN 7.30* PO2VEN 39 EBR1IAZ 20.1* Mixed Venous Sat No results for input(s): G6IOGV2 in the last 168 hours. PA Catheter [...] 07/29/24 1621 PHART 7.48* 7.44 7.38 7.37 GIS1DRH 29* 29* 34* 36 PO2ART 71* 109* 141* 71* RHA8OXI 20.6 19.4* 19.5* 20.4 VBG (Venous Blood Gas) Recent Labs 07/29/24 1401 PHVEN 7.30* PO2VEN 39 NGK7JFQ 20.1* Mixed Venous Sat No results for input(s): Q5PHBM9 in the last 168 hours. Microbiology: Microbiology Results (Last 30 days) Procedure Component Value Units Date/Time Blood culture [[id number]] Collected: 07/29/241607 Lab Status: Preliminary result Specimen: Blood, Venous Updated: 07/31/241700 Blood Culture No growth at 48 hours Blood culture [[id number]] Collected: 07/29/241607 Lab Status: Preliminary result Specimen: Blood, Venous Updated: 07/31/241700 Blood Culture No growth at 48 hours Imaging: Results for orders placed or performed during the hospital encounter of 07/29/24 XR Chest One View (Exam End: 07/29/2024 2:30 PM) Result Value WORKSTATION ID [id number] Impression 1. No pulmonary edema. 2. No pleural effusion. 3. No pneumothorax. Thank you for letting us participate in the care of this patient. If you are a health care provider and have any questions regarding this report, please contact the number below. For patients who have questions please contact the health day care attendant that requested your imaging first. Electronically signed by: Chris Candelaria MD, [facility] ([phone]), at 07/29/2024 3:21 PM TTE ( 07/30/24) [...] Compared to the overnight study by the python web developer fellow the impella position is stable. The [...] EKG. Patient transferred via air ambulance to [facility] on 07/29 for LHC and LOW to [...] Susannah Ornelas MD Internal Medicine, PGY-1 Cardiology, [facility] 08/01/24 7:13 AM CARDIOLOGY STAFF [...] with him; questions answered. Krystal Parker MD, [facility] Staff Commanding Officer Traffic Division emergency management program specialist * Krystal Parker MD - 07/31/2024 1:06 [...] ILL WITH THESE DIAGNOSES BEING MANAGED BY [facility] TEAM: # Anterior STEMI, late-presenting [...] EKG. Patient transferred via air ambulance to [facility] on 07/29 for LHC and LOW to LAD for 100% occlusion. TTE showed apical akinesis and inferior hypokinesis with EF 20%. RHC showed elevated filling pressures. Impella placed and P-level 6 at time of transfer to [facility]. CI initially 1.97, improved to 2.2 After impella. Received about 3 L of fluid during procedural course. Patient initially required norepinephrine 30, epinephrine 10, and vasopressin 0.04 for hemodynamic support, which was weaned upon arrival to [facility] to norepinephrine 20and levo 0.04 [...] PCP: Alexia Mtz APRN PCP phone number: [phone] Date of Admission: 07/29/2024 ( Hospital Day 2 days ) Attending:Krystal Parker MD ID: Korey Montoya is a 74 y.o. male w/ PMH of hypertension, HLD, and BPH on Hospital Day2 for chief concern of chest pain after being found to have ST elevations on EKG. Patient transferred via air ambulance to [facility] on 07/29 for LHC and LOW to [...] 0057 07/29/24 1621 PHART 7.44 7.38 7.37 AUY7AGD 29* 34* 36 PO2ART 109* 141* 71* NDX7UOY 19.4* 19.5* 20.4 VBG (Venous Blood Gas) Recent Labs 07/29/24 1401 PHVEN 7.30* PO2VEN 39 SQZ7IIY 20.1* Mixed Venous Sat No results for input(s): B3NTVM9 in the last 168 hours. PA Catheter #'s PA Catheter PAP (mmHg): 48/18 (07/31/24 08) PAP (mean): 28 (07/31/24799) CO (l/min): 4.8 l/min (07/31/24 0406) CI (l/min/m2): 2.8 l/min/m2 (07/31/24 0406) SVR (dyne*sec)/cm2: 1147 (dyne*sec)/cm2 (07/31/24405) SVRI (dyne*sec)/cm2: [...] Phlebitis 0-->no symptoms 07/30/24599 Infiltration 0-->no symptoms 11/18/24 0600 Site Signs/Symptoms no redness;no swelling;no warmth;no [...] line leveled/zeroed;system flushed 07/29/241999 Labs: Recent Labs 07/31/2410707/30/241 07/29/24 1403 07/29/24 1246 07/29/24 1212 WBC [...] 1403 TSH 0.70 Recent Labs 07/31/24 0747 07/30/24 2003 07/30/24 1823 07/30/24 1708 07/30/24 1117 07/30/24 0740 07/29/24 2009 07/29/24 1757 07/29/24 1619 POCGLU 82 86 93 78 97 111 142 166 185 Heme No results for input(s): LDH, HAPTOGLOBIN, URICACID in the last 168 hours. ABG (Arterial Blood Gas) Recent Labs 07/30/24 0816 07/30/24 0057 07/29/24 1621 PHART 7.44 7.38 7.37 LSR9TUD 29* 34* 36 PO2ART 109* 141* 71* UNI3EQC 19.4* 19.5* 20.4 VBG (Venous Blood Gas) Recent Labs 07/29/24 1401 PHVEN 7.30* PO2VEN 39 JXA8YHX 20.1* Mixed Venous Sat No results for input(s): L9AHHG0 in the last 168 hours. Microbiology: Microbiology Results (Last 30 days) Procedure Component Value Units Date/Time Blood culture [[id number]] Collected: 07/29/241607 Lab Status: Preliminary result Specimen: Blood, Venous Updated: 07/30/241700 Blood Culture No Growth at 18-24 hrs. Blood culture [[id number]] Collected: 07/29/241607 Lab Status: Preliminary result Specimen: Blood, Venous Updated: 07/30/241700 Blood Culture No Growth at 18-24 hrs. Imaging: Results for orders placed or performed during the hospital encounter of 07/29/24 XR Chest One View (Exam End: 07/29/2024 2:30 PM) Result Value WORKSTATION ID [id number] Impression 1. No pulmonary edema. 2. No pleural effusion. 3. No pneumothorax. Thank you for letting us participate in the care of this patient. If you are a health care provider and have any questions regarding this report, please contact the number below. For patients who have questions please contact the health day care attendant that requested your imaging first. Electronically signed by: hCris Candelaria MD, [facility] ([phone]), at 07/29/2024 3:21 PM TTE ( 07/30/24) [...] Compared to the overnight study by the python web developer fellow the impella position is stable. The [...] EKG. Patient transferred via air ambulance to [facility] on 07/29 for LHC and LOW to [...] work to optimize volume status while continuing vspanif-nzemnn-pewfwhtpiw therapies at this time. Obtain comprehensive TTE. [...] EKG. Patient transferred via air ambulance to [facility] on 07/29 for LHC and LOW to LAD for 100% occlusion. TTE showed apical akinesis and inferior hypokinesis with EF 20%. RHC showed elevated filling pressures. Impella placed and P-level 6 at time of transfer to [facility]. CI initially 1.97, improved to 2.2 After impella. Received about 3 L of fluid during procedural course. Patient initially required norepinephrine 30, epinephrine 10, and vasopressin 0.04 for hemodynamic support, which was weaned upon arrival to [facility] to norepinephrine 20and levo 0.04 [...] PCP: Yoel Artis APRN PCP phone number: [phone] Date of Admission: 07/29/2024 ( Hospital Day 1 day ) Attending:Jay Silverio MD ID: Korey Montoya is a 74 y.o. male w/ PMH of hypertension, HLD, and BPH on Hospital Day1 for chief concern of chest pain after being found to have ST elevations on EKG. Patient transferred via air ambulance to [facility] on 07/29 for LHC and LOW to [...] 0057 07/29/24 1621 PHART 7.44 7.38 7.37 NRY8LMB 29* 34* 36 PO2ART 109* 141* 71* QZZ1HZB 19.4* 19.5* 20.4 VBG (Venous Blood Gas) Recent Labs 07/29/24 1401 PHVEN 7.30* PO2VEN 39 JGD1KIV 20.1* Lactate ( Last 12 hours) 1.3 >> 1.2 Mixed Venous Sat No results for input(s): D5ZJHS4 in the last 168 hours. PA Catheter [...] 0057 07/29/24 1621 PHART 7.44 7.38 7.37 LBG2FKH 29* 34* 36 PO2ART 109* 141* 71* CHB2YEM 19.4* 19.5* 20.4 VBG (Venous Blood Gas) Recent Labs 07/29/24 1401 PHVEN 7.30* PO2VEN 39 CSG8TQK 20.1* Mixed Venous Sat No results for input(s): X1PURS5 in the last 168 hours. Microbiology: Microbiology Results (Last 30 days) Procedure Component Value Units Date/Time Blood culture [[id number]] Collected: 07/29/24 160 Lab Status: In process Specimen: Blood, Venous Updated: 07/29/24 162 Blood culture [[id number]] Collected: 07/29/241607 Lab Status: In process Specimen: Blood, Venous Updated: 07/29/24 161 Imaging: Results for orders placed or performed during the hospital encounter of 07/29/24 XR Chest One View (Exam End: 07/29/2024 2:30 PM) Result Value WORKSTATION ID [id number] Impression 1. No pulmonary edema. 2. No pleural effusion. 3. No pneumothorax. Thank you for letting us participate in the care of this patient. If you are a health care provider and have any questions regarding this report, please contact the number below. For patients who have questions please contact the health day care attendant that requested your imaging first. Electronically signed by: Chris Candelaria MD, [facility] ([phone]), at 07/29/2024 3:21 PM Medications Scheduled Meds: [...] EKG. Patient transferred via air ambulance to [facility] on 07/29 for LHC and LOW to [...] EKG. Patient transferred via air ambulance to [facility] on 07/29 for LHC and LOW to [...] EKG. Was transferred via air ambulance to [facility] for further management and [facility] demo nstrated 100% occlusion. No [...] weaned upon arrival to CV to norepinephrine 20 and levo 0.04 (epinephrine [...] (WRVU 4.57) performed by Brandan Mcgovern MD [facility] ENDOSCOPY Significant Family History: Family History [...] mouth. Past Week nitroGLYcerin (NITROLINGUAL) 400 mcg/spray [place], Non-Aerosol 1 spray to anus for proctalgia [...] 3.5 guiding catheter and a 3.5 Fr [place] [facility] [place] [address] 20 Mhz using Manual pullback. Imaging [...] priority for the procedure was Emergent. The [facility] indication for the procedure was [...] A premounted 3.00 x 22 mm [place] (LOW) was deployed with a maximum inflation [...] A premounted 3.00 x 08 mm Jeison [place] (LOW) was deployed with a maximum inflation [...] a limited study performed by a fellow python web developer to evaluate for cardiogenic shock with impella [...] Compared to the overnight study by the python web developer fellow the impella position is stable. The [...] EKG. Patient transferred via air ambulance to [facility] on 07/29 for LHC and LOW to [...] PCP: Yoel Artis APRN PCP phone number: [phone] Date of Admission: 07/29/2024 ( Hospital Day 0 days ) Attending:Jay Silverio MD ID: Korey Montoya is a 74 y.o. male w/ PMH of hypertension, HLD, and BPH who presents for chief concern of chest pain after being found to have ST elevations on EKG. Patient transferred via air ambulance to [facility] on 07/29 for LHC and LOW to LAD for 100% occlusion. HPI: Korey Montoya is a 74 y.o. male w/ PMH of hypertension, HLD, and BPH who presents for chief concern of chest pain after being found to have ST elevations on EKG. Patient transferred via air ambulance to [facility] on 07/29 for LHC and LOW to [...] EKG. Was transferred via air ambulance to [facility] for further management and LHC demonstrated 100% [...] (WRVU 4.57) performed by Brandan Mcgovern MD [facility] ENDOSCOPY Family History Family History Problem [...] file CODE: Full code DPOA: Litzy BARKER Myron Alcohol: not for 42 years Tobacco: none [...] Blood Gas) No results for input(s): PHART, HED2OZV, PO2ART, MQL6RMR, LACTATEVEN, UXC0MVW, PFRATIOART2 in the last 168 hours. VBG (Venous Blood Gas) Recent Labs 07/29/24 1401 PHVEN 7.30* PO2VEN 39 EZG4BVA 20.1* Mixed Venous Sat No results for input(s): T6BBTL8 in the last 168 hours. PA Catheter [...] Blood Gas) No results for input(s): PHART, UEI3KSG, PO2ART, WRX7PEP, LACTATEVEN, GTD9MQN, PFRATIOART2 in the last 168 hours. VBG (Venous Blood Gas) Recent Labs 07/29/24 1401 PHVEN 7.30* PO2VEN 39 HPG6PNH 20.1* Mixed Venous Sat No results for input(s): C7VRLC3 in the last 168 hours. Microbiology: Microbiology [...] magnesium Sulfate, lidocaine (pf) Assessment & Plan: Korye Montoya is a 74 y.o. male w/ PMH of hypertension, HLD, and BPH who presents for chief concern of chest pain after being found to have ST elevations on EKG. Patient transferred via air ambulance to [facility] on 07/29 for C. Found to have 100% occlusion of LAD for which he underwent LOW to LAD.Otherwise no other significant vessel disease. Fahad is currently hemodynamically tenuous but improving upon admission to [facility], requiring hemodynamic support with norepinephrine and vasopressin at time of admission along with mechanical support with Impella device. Reassuringly, he demonstrates decreasing pressor requirements since admission to [facility], with epinephrine completely weaned. He [...] Bernardo Amos MD Internal Medicine, PGY-3 Cardiology, [facility] 07/29/24 3:14 PM Cardiology Attending [...] MD, FACP, FACC Section of Cardiovascular Medicine [facility] Credit Operations Specialistnail puller [facility] This patient meets or has met [...] to the planned procedure. Hand Hygiene: The dog hair clipper did perform hand hygiene prior to arterial [...] ease. Good wave form. Ivan Hernandez MD Wheat Buyer Associated attestation - Rolando Yeh MD - [...] Fahad was quite active prior to his NC. 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 Given parameters for home exercise. He follows a heart healthy diet and is not overweight. His lipids are wnl. Participation in an outpatient cardiac rehabilitation program at [facility] was discussed. Patient agrees to [...] through: Primary Insurance: AARP MANAGED MEDICARE Payor: AARP MANAGED MEDICARE / Plan: AARP [facility] MANAGED MEDICARE COMPLETE / Product Type: [...] of Discharge: 08/04/2024 Gaby Wong RN, CM [phone] * Initial Assessments - Char Meza OT - 08/03/2024 10:00 AM EST Occupational Therapy Evaluation Patient profile: Korey Montoya is a 74 y.o. male admitted on 07/29/2024 w/ PMH of hypertension, HLD, and BPH who presents for chief concern of chest pain after being found to have ST elevations onEKG. Patient transferred via air ambulance to [facility] on 07/29 for LHC and LOW to LAD for 100% occlusion. Past Medical History: Diagnosis Date ADHD HLD (hyperlipidemia) HTN (hypertension) Tremor Past Surgical History: Procedure Laterality Date HAND SURGERY PRO COLONOSCOPY, REMV LESN, SNARE N/A 08/30/2023 COLONOSCOPY, POLYPECTOMY, REMOVAL LESION BY SNARE (WRVU 4.57) performed by Brandan Mcgovern MD [facility] ENDOSCOPY Social History: Patient lives with his . Home Setup: 2 NAOMI to a 1 level home. DME: none Baseline ADL/Mobility: Independent with ADLs and IADLs. Enjoys walking. able assist as needed. Precautions/Special Considerations: Full code. Risk for falls. Subjective: I have access to an [employer] weight gym. (Educated to wait for [...] evaluation only Total Minutes, Occupational Therapy: 14 ([id number] (evaluation)) 2017 OT Evaluation Code Rationale: Diagnosis [...] and measurable assessment of functional outcome. Pager: [phone] Char Meza OT 08/03/2024 Occupational Therapy Rehabilitation [...] Procedure Note: Patient Name: Korey Montoya : [id number] MR#: [id number] Case Date: 07/31/2024 Occupational Therapist Assistants: Surgeons and Role: * Maldonado Luis MD - Primary * Quinten Charles PA - Physician Art Specialist Preoperative diagnosis: shock, impella Postoperative diagnosis: * same * Procedure(s) performed: Impella removal form right RACEHORSE TRAINER Access: Right RACEHORSE TRAINER A time-out was conducted prior to the [...] 180 days) Any patient receiving care in [place] must abide by [place] law. The hierarchy [...] (i) The agent with financial power of united states attorney or a conservator appointed in accordance [...] homeless or living in a retirement (including now)?: No In the past 12 months has the Last 2 Left gas, oil, or water [email or web address] threatened to shut off services in your [...] it) Home Address confirmed as: Mailing Address: [address] [place] [address] Physical Address: [address] [place], [place] Social & Family Supports: All names [...] points: Addiction likely Health/Prescription Coverage: Primary Insurance: [facility] [place] MEDICARE Payor: [facility] MANAGED MEDICARE / Plan: [facility] [place] MEDICARE COMPLETE / Product Type: *No Product type* / Secondary Insurance: N/A ; Prescription Coverage: Yes Preferred Pharmacy: [address] [address] [place] Status: Patient is a : No Primary Care Provider confirmed: Alexia Mtz, FREDRICK [phone] Patient/Caregiver Goals of Treatment: return home Potential [...] 07/29/2024 6:25 PM EST Pt arrived from cathode builder @ 1400. CXR and EKG completed. Impella [...] Procedure Note: Patient Name: Korey Montoya : [id number] MR#: [id number] Case Date: 07/29/2024 Occupational Therapist Assistants: Surgeons and Role: * Vahe Marvin MD - Primary * Susannah Watts PA - Physician Art Specialist Preoperative diagnosis: STEMI Postoperative diagnosis: * STEMI, LAD Artery * * Cardiogenic Shock * Procedure(s) performed: [facility] Coronary angiogram Stent insertion coronary IVUS coronary Venous line insert [facility] [place] Colette Catheter Vascular closure device Ventricular assist [...] x 22 mm to 14 deonna JEISON [place] with LIZ 3 flow. Residual distal disease at distal stent, overlapping distal stent was inserted with 3.0 x 8 mm JEISON [place]. Systolic's in the 80's sustained. Patient re [...] AM EST Office Visit Cardiology at [address] [phone] Mushtaq Murphy, CONCRETE FINISHER Scheduled Orders Name Type Priority Associated Diagnoses [...] 2:01 PM EST CARDIAC CATHETERIZATION Routine 07/29/20 24 1:20 PM EST BLOOD GAS, POC Routine 07/29/2024 12:46 PM EST BLOOD GAS, POC Routine 07/29/2024 12:12 PM EST documented in this encounter Results * (ABNORMAL) CBC (with Diff) (08/04/2024 6:08 AM EST) [facility] White Blood Cell 7.27 4.00 - [...] ORDERABLE S [facility] [place] [address] * Magnesium (08/04/2024 6:08 AM EST) Magnesium 0.85 0.69 - 1.07 mMol/L 08/04/2024 7:07 AM [facility] Blood VENOUS BLOOD SPECIMEN / Unknown Venipuncture / Unknown 08/04/2024 6:08 AM EST 08/04/2024 6:19 AM EST Bridgette Stauffer MD CHEMISTRY ORDERABLES [facility] [place] [address] * Basic Metabolic Panel (08/04/2024 6:08 AM EST) Glucose 93 65 - 199 mg/dL 08/04/2024 7:07 AM [facility] Comment:Glucose Concentratio n >=200 mg/dL plus symptoms is consistent with Diabetes Mellitus. Blood Urea Nitrogen 14 10 - 20 mg/dL 08/04/2024 7:07 AM [facility] Creatinine 1.07 0.80 - 1.50 mg/dL 08/04/2024 7:07 AM EST [facility] Sodium 138 135 - 145 [...] CHEMISTRY ORDERABLES [facility] [place] [address] * (ABNORMAL) CBC (with Diff) (08/03/2024 5:16 [...] ORDERABLE S [facility] [place] [address] * Magnesium (08/03/2024 5:16 AM EST) Magnesium 0.89 0.69 - 1.07 mMol/L 08/03/2024 5:56 AM [facility] Blood VENOUS BLOOD SPECIMEN / Unknown Venipuncture / Unknown 08/03/2024 5:16 AM EST 08/03/2024 5:23 AM EST Bridgette Stauffer MD CHEMISTRY ORDERABLES [facility] [place] [address] * (ABNORMAL) Basic Metabolic Panel (08/03/2024 5:16 AM EST) Glucose 98 65 - 199 mg/dL 08/03/2024 5:56 AM [facility] Comment:Glucose Concentratio n >=200 mg/dL plus symptoms is consistent with Diabetes Mellitus. Blood Urea Nitrogen 16 10 - 20 mg/dL 08/03/2024 5:56 AM [facility] Creatinine 0.85 0.80 - 1.50 mg/dL 08/03/2024 5:56 AM EST [facility] Sodium 137 135 - 145 mMol/L 08/03/2024 5:56 AM [facility] Potassium 4.5 3.5 - 5.0 mMol/L 08/03/2024 5:56 AM [facility] Chloride 106 98 - 107 mMol/L 08/03/2024 5:56 AM [facility] Carbon Dioxide 21(L) 22 - 31 mMol/L 08/03/2024 5:56 AM [facility] Anion Gap 10 5 - 15 mMol/L 08/03/2024 5:56 AM [facility] Calcium 8.3(L) 8.5 - 10.5 [...] Stauffer MD CHEMISTRY ORDERABLES Performing Organization Address [facility]/ZIP Co de Phone Number [facility] [place] [address] * POC, GLUCOSE (08/02/2024 7:47 AM EST) Glucometer, POC 89 65 - 199 mg/dL 08/02/2024 7:47 AM EST [facility] Comment:Supplemental ranges: <140 mg/dL before meals <180 mg/dL all other times of the day. Blood CAPILLARY BLOOD / Unknown 08/02/2024 7:47 AM EST 08/02/2024 7:47 AM EST Krystal Parker MD POINT OF CARE TEST O RDERABLES Performing Organization Address [facility] Co de Phone Number [facility] [place] [address] * (ABNORMAL) CBC (with Diff) (08/02/2024 4:20 [...] ORDERABLE S [facility] [place] [address] * Magnesium (08/02/2024 4:20 AM EST) Magnesium 0.79 0.69 - 1.07 mMol/L 08/02/2024 5:06 AM [facility] Blood VENOUS BLOOD SPECIMEN / Unknown Venipuncture / Unknown 08/02/2024 4:20 AM EST 08/02/2024 4:37 AM EST Bridgette Stauffer MD CHEMISTRY ORDERABLES [facility] [place] [address] * (ABNORMAL) Basic Metabolic Panel (08/02/2024 4:20 [...] Stauffer MD CHEMISTRY ORDERABLES Performing Organization Address [facility] Co de Phone Number [facility] [place] [address] * Potassium (08/01/2024 8:39 PM EST) Potassium 4.0 3.5 - 5.0 mMol/L 08/01/2024 9:21 PM EST [facility] Blood VENOUS BLOOD SPECIMEN / Unknown Venipuncture / Unknown 08/01/2024 8:39 PM EST 08/01/2024 8:51 PM EST Jay Silverio MD CHEMISTRY ORDERABL ES Performing Organization Address [facility] Phone Number [facility] [place] [address] * POC, GLUCOSE (08/01/2024 8:35 PM EST) Glucometer, POC 112 65 - 199 mg/dL 08/01/2024 8:36 PM EST [facility] Comment:Supplemental ranges: <140 mg/dL before meals <180 mg/dL all other times of the day. Blood CAPILLARY BLOOD / Unknown 08/01/2024 8:35 PM EST 08/01/2024 8:36 PM EST Krystal Parker MD POINT OF CARE TEST O RDERABLES Performing Organization Address [facility] Co de Phone Number [facility] [place] [address] * POC, GLUCOSE (08/01/2024 4:55 PM EST) Glucometer, POC 99 65 - 199 mg/dL 08/01/2024 4:56 PM EST [facility] Comment:Supplemental ranges: <140 mg/dL before meals <180 mg/dL all other times of the day. Blood CAPILLARY BLOOD / Unknown 08/01/2024 4:55 PM EST 08/01/2024 4:56 PM EST Krystal Parker MD POINT OF CARE TEST O JOSH Performing Organization Address [facility] Co de Phone Number [facility] [place] [address] * POC, GLUCOSE (08/01/2024 12:42 PM EST) Glucometer, POC 130 65 - 199 mg/dL 08/01/2024 12:43 PM EST [facility] Comment:Supplemental ranges: <140 mg/dL before meals <180 mg/dL all other times of the day. Blood CAPILLARY BLOOD / Unknown 08/01/2024 12:42 PM EST 08/01/2024 12:43 PM EST Krystal Parker MD POINT OF CARE TEST O JOSH Performing Organization Address [facility] Co de Phone Number [facility] [place] [address] * (ABNORMAL) Cooximetry, POC (08/01/2024 10:45 AM EST) pO2, Coox 32 mmHg 08/01/2024 10:48 AM [facility] Hemoglobin, Coox 12.9(L) 13.7 - 16.5 g/dL 08/01/2024 10:48 AM EST [facility] Oxyhemoglobin, Coox 66.7 % 08/01/2024 10:48 AM [facility] Carboxyhemoglo bin, Coox 1.1 % 08/01/2024 10:48 AM [facility] Comment: Nonsmokers: [...] CARE TEST O RDERABLES Performing Organization Address [facility]/ZIP Co de Phone Number [facility] [place] [address] * Potassium (08/01/2024 8:20 AM EST) Potassium 4.0 3.5 - 5.0 mMol/L 08/01/2024 10:17 AM EST [facility] Blood ARTERIAL BLOOD / Unknown Venipuncture / Unknown 08/01/2024 8:20 AM EST 08/01/2024 8:30 AM EST Jay Silverio MD CHEMISTRY ORDERABL ES Performing Organization Address [facility] Co de Phone Number [facility] [place] [address] * POC, GLUCOSE (08/01/2024 7:44 AM EST) Glucometer, POC 86 65 - 199 mg/dL 08/01/2024 7:44 AM EST [facility] Comment:Supplemental ranges: <140 mg/dL before meals <180 mg/dL all other times of the day. Blood CAPILLARY BLOOD / Unknown 08/01/2024 7:44 AM EST 08/01/2024 7:44 AM EST Krystal Parker MD POINT OF CARE TEST O RDERABLES Performing Organization Address [facility]/ZIP Co de Phone Number [facility] [place] [address] * (ABNORMAL) CBC (with Diff) (08/01/2024 4:18 [...] ORDERABLE S [facility] [place] [address] * Magnesium (08/01/2024 4:18 AM EST) Magnesium 0.74 0.69 - 1.07 mMol/L 08/01/2024 5:00 AM [facility] Blood VENOUS BLOOD SPECIMEN / Unknown Venipuncture / Unknown 08/01/2024 4:18 AM EST 08/01/2024 4:29 AM EST Bridgette Stauffer MD CHEMISTRY ORDERABLES [facility] [place] [address] * (ABNORMAL) Basic Metabolic Panel (08/01/2024 4:18 [...] Stauffer MD CHEMISTRY ORDERABLES Performing Organization Address [facility] Co de Phone Number [facility] [place] [address] * POC, GLUCOSE (07/31/2024 8:41 PM EST) [facility] Signature Glucometer, POC 73 65 - 199 mg/dL 07/31/2024 8:41 PM EST [facility] Comment:Supplemental ranges: <140 mg/dL before meals <180 mg/dL all other times of the day. Blood CAPILLARY BLOOD / Unknown 07/31/2024 8:41 PM EST 07/31/2024 8:41 PM EST Krystal Parker MD POINT OF CARE TEST O RDERABLES Performing Organization Address [facility] Co de Phone Number [facility] [place] [address] * CARDIAC CATHETERIZATION (07/31/2024 5:53 PM EST) Anatomical Region Laterality Modality Other Narrative 08/01/2024 12:37 PM EST ?[facility] ? Cardiac Catheterization/Intervention Report ? Patient Name: Korey Montoya. ? Procedure Date: 07/31/2024 ? A #: [id number] ? Primary Physician: Janelle, Maldonado T ? Case #: [id number] ? File Name: [id number] ? Catheterization Order Number: [id number] ? [facility] ? Final Report [place], [place] ? Patient Name: ? Korey P. Montoya ?ID#: ?[id number] ? : ?1950 ? Procedure Date: ? July 31, 2024 ?Case #: ? [id number] ? Room: ? 1 ? Case Physician: [...] as ASA Class IV. The HA clinical frailty scale ?is 4: Vulnerable. ? [...] ? Comments: ?Impella removed from the right RACEHORSE TRAINER with deployment of Perclose and ?Angioseal. ??Good [...] - 08/01/2024 [facility] Cardiac Catheterization/Intervention Report Patient Name: Korey MontoyaToby Procedure Date: 07/31/2024 A #: [id number] Primary Physician: Maldoando Luis Case #: [id number] File Name: [id number] Catheterization Order Number: [id number] [facility] FinalReport [place], [place] Patient Name: Korey Montoya ID#:[id number] :1950 Procedure Date: July 31, 2024 Case [...] procedures. Comments: Impella removed from the right RACEHORSE TRAINER with deployment of Perclose and Angioseal. Good [...] * POC, GLUCOSE (07/31/2024 11:04 AM EST) [facility] Glucometer, POC 82 65 - 199 mg/dL 07/31/2024 11:04 AM EST [facility] Comment:Supplemental ranges: <140 mg/dL before meals <180 mg/dL all other times of the day. Blood CAPILLARY BLOOD / Unknown 07/31/2024 11:04 AM EST 07/31/2024 11:04 AM EST Krystal Parker MD POINT OF CARE TEST O RDERABLES [facility] [place] [address] * (ABNORMAL) Blood Gas, Arterial POC (07/31/2024 8:29 AM EST) [facility] pH, Arterial 7.48(H) 7.35 - 7.45 [...] CARE TEST O JOSH Performing Organization Address City/[facility]/ZIP Co de Phone Number [facility] [place] [address] * POC, GLUCOSE (07/31/2024 7:47 AM EST) Pathologist [facility] Glucometer, POC 82 65 - 199 mg/dL 07/31/2024 7:53 AM EST [facility] Comment:Supplemental ranges: <140 mg/dL before meals <180 mg/dL all other times of the day. Blood CAPILLARY BLOOD / Unknown 07/31/2024 7:47 AM EST 07/31/2024 7:53 AM EST Krystal Parker MD POINT OF CARE TEST O JOSH Performing Organization Address [facility] Co de Phone Number [facility] [place] [address] * (ABNORMAL) CBC (with Diff) (07/31/2024 1:08 AM EST) [facility] White Blood Cell 10.25(H) 4.00 - 9.50 [...] MD HEMATOLOGY ORDERABLE S Performing Organization Address City/[facility]/ZIP Co de Phone Number [facility] [place] [address] * Magnesium (07/31/2024 1:08 AM EST) Magnesium 0.89 0.69 - 1.07 mMol/L 07/31/2024 1:46 AM EST [facility] Blood VENOUS BLOOD SPECIMEN / Unknown Venipuncture / Unknown 07/31/2024 1:08 AM EST 07/31/2024 1:18 AM EST Bridgette Stauffer MD CHEMISTRY ORDERABLES [facility] [place] [address] * (ABNORMAL) Basic Metabolic Panel (07/31/2024 1:08 [...] CHEMISTRY ORDERABLES [facility] [place] [address] * (ABNORMAL) Hepatic Function Panel (07/31/2024 1:08 [...] AM EST Krystal Parker MD CHEMISTRY ORDERABLES [facility] [place] [address] * POC, GLUCOSE (07/30/2024 8:03 PM EST) Glucometer, POC 86 65 - 199 mg/dL 07/30/2024 8:03 PM [facility] Comment:Supplemental ranges: <140 mg/dL before meals <180 mg/dL all other times of the day. Blood CAPILLARY BLOOD / Unknown 07/30/2024 8:03 PM EST 07/30/2024 8:03 PM EST Krystal Parker MD POINT OF CARE TEST O RDERABLES Performing Organization Address City/[facility]/ZIP Co de Phone Number [facility] [place] [address] * Potassium (07/30/2024 8:03 PM EST) Potassium 3.8 3.5 - 5.0 mMol/L 07/30/2024 9:13 PM EST [facility] Blood VENOUS BLOOD SPECIMEN / Unknown Venipuncture / Unknown 07/30/2024 8:03 PM EST 07/30/2024 8:22 PM EST Jay Silverio MD CHEMISTRY ORDERABL ES Performing Organization Address [facility] Co de Phone Number [facility] [place] [address] * POC, GLUCOSE (07/30/2024 6:23 PM EST) Glucometer, POC 93 65 - 199 mg/dL 07/30/2024 6:24 PM EST [facility] Comment:Supplemental ranges: <140 mg/dL before meals <180 mg/dL all other times of the day. Blood CAPILLARY BLOOD / Unknown 07/30/2024 6:23 PM EST 07/30/2024 6:24 PM EST Krystal Parker MD POINT OF CARE TEST O RDERABLES Performing Organization Address [facility]/ZIP Co de Phone Number [facility] [place] [address] * POC, GLUCOSE (07/30/2024 5:08 PM EST) Glucometer, POC 78 65 - 199 mg/dL 07/30/2024 5:08 PM EST [facility] Comment:Supplemental ranges: <140 mg/dL before meals <180 mg/dL all other times of the day. Blood CAPILLARY BLOOD / Unknown 07/30/2024 5:08 PM EST 07/30/2024 5:08 PM EST Krystal Parker MD POINT OF CARE TEST O RDERABLES Performing Organization Address [facility]/ZIP Co de Phone Number [facility] [place] [address] * (ABNORMAL) Phosphorus (07/30/2024 3:08 PM EST) Phosphorus 2.1(L) 2.5 - 4.5 mg/dL 07/30/2024 3:58 PM EST [facility] Blood VENOUS BLOOD SPECIMEN / Unknown Venipuncture / Unknown 07/30/2024 3:08 PM EST 07/30/2024 3:12 PM EST Jay Silverio MD CHEMISTRY ORDERABL ES Performing Organization Address [facility] Co de Phone Number [facility] [place] [address] * Magnesium (07/30/2024 3:08 PM EST) Magnesium 0.90 0.69 - 1.07 mMol/L 07/30/2024 3:58 PM EST [facility] Blood VENOUS BLOOD SPECIMEN / Unknown Venipuncture / Unknown 07/30/2024 3:08 PM EST 07/30/2024 3:12 PM EST Jay Silverio MD CHEMISTRY ORDERABL ES Performing Organization Address City/[facility]/ZIP Co de Phone Number [facility] [place] [address] * (ABNORMAL) Basic Metabolic Panel (07/30/2024 3:08 [...] - 31 mMol/L 07/30/2024 4:17 PM EST [facility] Anion Gap 11 5 - [...] ORDERABL ES [facility] [place] [address] * ECHO LMTD W CONTRAST W LMTD SPEC DOPP COLOR DOPP (07/30/2024 11:42 AM EST) Anatomical Region Laterality Modality Cardiac Other 07/30/2024 10:2 2 AM EST Narrative 07/30/2024 12:34 PM EST [address] [place] [address] ? Echocardiogram Report Name: KOREY MONTOYA ? Study Date: 07/30/2024 10:22 AMBP: 124/66 mmHg : 1950 ? Height: 168 cm ? Account: [id number] Age: 74 yrs ? Weight: 65 kg Gender: Male ?BSA: 1.7 m2 Ordering Physician: Jay Silverio MD Referring Physician: CHAPARRO FERRERA Performed By: OMERO Millan Reason For Study: ST elevation myocardial infarction involving left anterior descending (LAD) coronary artery Interpreting Fellow: Ivan Hernandez. Exam Location: [facility]. Interpretation Summary Left ventricle is [...] Compared to the overnight study by the python web developer fellow the impella position is stable. 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 Procedure Limited - 34090. Image enhancement Definity was used for both [...] Note Kathleen Banda MD - 07/30/2024 [address] [place] [address] Echocardiogram Report Name: KOREY MONTOYA Study Date: 410:22 AMBP: 124/66 mmHg : 1950 Height: 168 cm Account: [id number] Age: 74 yrs Weight: 65 kg Gender: Male BSA: 1.7 m2 Ordering Physician: Jay Silverio MD Referring Physician: CHAPARRO FERRERA Performed By: OMERO Millan Reason For Study: ST elevation myocardial infarction involving leftanterior descending (LAD) coronary artery Interpreting Fellow: Ivan Hernandez. Exam Location: [facility]. Interpretation Summary Left ventricle is [...] Compared to the overnight study by the python web developer fellow the impella positionis stable. The global left ventricular systolic function has improvedpredominantly via recruitment outside the LAD territory which remains akinetic. Procedure Limited - 77828. Image enhancement Definity was used for both [...] TEST ORDERABLES [facility] [place] [address] * (ABNORMAL) Blood Gas, Arterial POC (07/30/2024 [...] OF CARE TEST ORDERABLES Performing Organization Address City/[facility]/ZIP Co de Phone Number [facility] [place] [address] * (ABNORMAL) Troponin - Single (07/30/2024 8:09 [...] can be found in the [facility] Test Catalog Troponin - [email or web address]/catalogs/565/files/07466 Reference: Fourth [place] Definition of Myocardial Infarction. Journal of the [employer] 2018;72:8822-9711 Blood VENOUS BLOOD SPECIMEN / Unknown Venipuncture / Unknown 07/30/2024 8:09 AM EST 07/30/2024 8:26 AM EST Jay Silverio MD CHEMISTRY ORDERABL ES Performing Organization Address City/[facility]/ZIP Co de Phone Number [facility] [place] [address] * POC, GLUCOSE (07/30/2024 7:40 AM EST) Pathologist [facility] Glucometer, POC 111 65 - 199 mg/dL 07/30/2024 7:40 AM EST [facility] Comment:Supplemental ranges: <140 mg/dL before meals <180 mg/dL all other times of the day. Blood CAPILLARY BLOOD / Unknown 07/30/2024 7:40 AM EST 07/30/2024 7:40 AM EST Jay Silverio MD POINT OF CARE TEST ORDERABLES [facility] [place] [address] * (ABNORMAL) CBC (with Diff) (07/30/2024 2:11 AM EST) [facility] White Blood Cell 11.25(H) 4.00 - 9.50 [...] MD HEMATOLOGY ORDERABLE S Performing Organization Address [facility]/ZIP Co de Phone Number [facility] [place] [address] * Magnesium (07/30/2024 2:11 AM EST) Pathologist [facility] Magnesium 1.01 0.69 - 1.07 mMol/L 07/30/2024 2:51 AM [facility] Blood VENOUS BLOOD SPECIMEN / Unknown Venipuncture / Unknown 07/30/2024 2:11 AM EST 07/30/2024 2:22 AM EST Bridgette Stauffer MD CHEMISTRY ORDERABLES Performing Organization Address City/[facility] Co de Phone Number [facility] [place] [address] * (ABNORMAL) Basic Metabolic Panel (07/30/2024 2:11 [...] - 10.5 mg/dL 07/30/2024 2:51 AM EST [facility] Est Glomerular Filtration Rate - [...] CHEMISTRY ORDERABLES [facility] [place] [address] * (ABNORMAL) Cooximetry, POC (07/30/2024 1:00 AM [...] City/State/[facility] Co de Phone Number [facility] [place] [address] * (ABNORMAL) Blood Gas, Arterial POC (07/30/2024 [...] TEST ORDERABLES [facility] [place] [address] * (ABNORMAL) Troponin - Single (07/29/2024 10:31 [...] can be found in the [facility] Test Catalog Troponin - [email or web address]/catalogs/565/files/36476 Reference: Fourth [place] Definition of Myocardial Infarction. Journal of the [employer] 2018;72:4200-5327 Blood VENOUS BLOOD SPECIMEN / Unknown Venipuncture / Unknown 07/29/2024 10:31 PM EST 07/29/2024 10:36 PM EST Yrn Ward MD CHEMISTRY ORDERABL ES [facility] [place] [address] * Potassium (07/29/2024 8:11 PM EST) Potassium 4.1 3.5 - 5.0 mMol/L 07/29/2024 8:52 PM EST [facility] Blood VENOUS BLOOD SPECIMEN / Unknown Venipuncture / Unknown 07/29/2024 8:11 PM EST 07/29/2024 8:16 PM EST Jay Silverio MD CHEMISTRY ORDERABL ES Performing Organization Address City/[facility]/ZIP Co de Phone Number [facility] [place] [address] * (ABNORMAL) Troponin - Single (07/29/2024 8:11 [...] can be found in the [facility] Test Catalog Troponin - [email or web address]/catalogs/565/files/72670 Reference: Fourth [place] Definition of Myocardial Infarction. Journal of the [employer] College [employer]iology 2018;72:0319-1131 Blood VENOUS BLOOD SPECIMEN / Unknown Venipuncture / Unknown 07/29/2024 8:11 PM EST 07/29/2024 8:16 PM EST Jay Silverio MD CHEMISTRY ORDERABL ES [facility] [place] [address] * (ABNORMAL) Phosphorus (07/29/2024 8:11 PM EST) Phosphorus 2.1(L) 2.5 - 4.5 mg/dL 07/29/2024 8:52 PM EST [facility] Blood VENOUS BLOOD SPECIMEN / Unknown Venipuncture / Unknown 07/29/2024 8:11 PM EST 07/29/2024 8:16 PM EST Jay Silverio MD CHEMISTRY ORDERABL ES Performing Organization Address City/[facility]/ZIP Co de Phone Number [facility] [place] [address] * POC, GLUCOSE (07/29/2024 8:09 PM EST) Glucometer, POC 142 65 - 199 mg/dL 07/29/2024 8:09 PM EST [facility] Comment:Supplemental ranges: <140 mg/dL before meals <180 mg/dL all other times of the day. Blood CAPILLARY BLOOD / Unknown 07/29/2024 8:09 PM EST 07/29/2024 8:09 PM EST Jay Silverio MD POINT OF CARE TEST ORDERABLES Performing Organization Address City/[facility]/ZIP Co de Phone Number [facility] [place] [address] * ABORH RECHECK (07/29/2024 6:43 PM EST) ABORH Recheck AB POSITIVE 07/29/2024 10:13 PM EST [facility] Blood VENOUS BLOOD SPECIMEN / Unknown Venipuncture / Unknown 07/29/2024 6:43 PM EST 07/29/2024 7:15 PM EST Jay Silverio MD BLOOD BANK LAB ORD ERABLES Performing Organization Address City/[facility]/ZIP Co de Phone Number [facility] [place] [place] [address] * POC, GLUCOSE (07/29/2024 5:57 PM EST) Glucometer, POC 166 65 - 199 mg/dL 07/29/2024 5:57 PM EST [facility] Comment:Supplemental ranges: <140 mg/dL before meals <180 mg/dL all other times of the day. Blood CAPILLARY BLOOD / Unknown 07/29/2024 5:57 PM EST 07/29/2024 5:57 PM EST Jay Silverio MD POINT OF CARE TEST ORDERABLES Performing Organization Address City/[facility]/ZIP Co de Phone Number [facility] [place] [address] * Type and screen ([facility]/JONG/MAGALIE) (07/29/2024 5:56 PM EST) [facility] ABORH Type AB POSITIVE 07/29/2024 9:44 PM EST [facility] PATIENT HISTORY Not Found 07/29/2024 9:44 PM EST [facility] Expires at [id number] on: 08/01/2024 07/29/2024 9:44 PM EST [facility] ANTIBODY SCREEN AUTOMATED Negative 07/29/2024 9:44 PM EST [facility] T&S only valid at [facility] 07/29/2024 9:44 PM EST [facility] Blood VENOUS BLOOD SPECIMEN / Unknown Venipuncture / Unknown 07/29/2024 5:56 PM EST 07/29/2024 6:07 PM EST Narrative [facility] - 07/29/2024 9:44 PM EST This Type and Screen result is only valid at the [facility] Jay Silverio MD BLOOD BANK LAB ORD ERABLES Performing Organization Address City/[facility]/ZIP Co de Phone Number [facility] [place] [place] [address] * (ABNORMAL) Troponin - Single (07/29/2024 4:52 PM EST) [facility] Troponin-T, High Sensitivity >10,000(H ) <=22 [...] can be found in the [facility] Test Catalog Troponin - [email or web address]/catalogs/565/files/29687 Reference: Fourth [place] Definition of Myocardial Infarction. Journal of the [employer] College [employer]iology 2018;72:6849-4893 Blood VENOUS BLOOD SPECIMEN / Unknown Venipuncture / Unknown 07/29/2024 4:52 PM EST 07/29/2024 4:57 PM EST Jay Silverio MD CHEMISTRY ORDERABL ES Performing Organization Address City/State/[facility] Co de Phone Number [facility] [place] [address] * EKG 12 Lead (07/29/2024 4:21 PM EST) Ventricular rate 72 BPM MUSE SYSTEM Atrial Rate 72 BPM MUSE SYSTEM P-R Interval 168 ms MUSE SYSTEM QRS Duration 82 ms MUSE SYSTEM Q-T Interval 392 ms MUSE SYSTEM QTC Calculated (Bezet) 429 ms MUSE SYSTEM Calculated P Harlan 71 degrees MUSE SYSTEM Calculated R Harlan 77 degrees MUSE SYSTEM Calculated T Harlan 28 degrees MUSE SYSTEM INTERPRETATION Sinus rhythm with Premature supraventricular complexes and Occasional Premature ventricular complexes Low voltage QRS 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) Lateral injury pattern ACUTE NC / STEMI Abnormal ECG When compared with [...] OF CARE TEST ORDERABLES Performing Organization Address City/State/ZIP Co ma Phone Number [facility] [place] [address] * POC, GLUCOSE (07/29/2024 4:19 PM EST) [facility] Signature Glucometer, POC 185 65 - 199 mg/dL 07/29/2024 4:19 PM [facility] Comment:Supplemental ranges: <140 mg/dL before meals <180 mg/dL all other times of the day. Blood CAPILLARY BLOOD / Unknown 07/29/2024 4:19 PM EST 07/29/2024 4:19 PM EST Jay Silverio MD POINT OF CARE TEST ORDERABLES [facility] [place] [address] * Blood culture (07/29/2024 4:08 PM EST) Blood Culture No growth at 120 hours 08/03/2024 5:01 PM EST [facility] Blood VENOUS BLOOD SPECIMEN / Unknown Venipuncture / Unknown 07/29/2024 4:08 PM EST 07/29/2024 4:15 PM EST Jay Silverio MD MICROBIOLOGY - BLO OD ORDERABLES Performing Organization Address [facility] Co de Phone Number [facility] [place] [address] * Blood culture (07/29/2024 4:08 PM EST) Blood Culture No growth at 120 hours 08/03/2024 5:01 PM EST [facility] Blood VENOUS BLOOD SPECIMEN / Unknown Venipuncture / Unknown 07/29/2024 4:08 PM EST 07/29/2024 4:26 PM EST Jay Silverio MD MICROBIOLOGY - BLO OD ORDERABLES Performing Organization Address [facility] Co de Phone Number [facility] [place] [address] * XR Chest One View (07/29/2024 2:30 PM EST) WORKSTATION ID [id number] DH RAD Anatomical Region Laterality Modality Chest [...] who have questions please contact the health day care attendant that requested your imaging first. ? Electronically signed by: Chris Candelaria MD, [facility] ([phone]), at 07/29/2024 3:21 PM Narrative 07/29/2024 3:21 [...] patients who have questions please contactthe health day care attendant that requested your imaging first. Electronically signed by: Chris Candelaria MD, [facility]([phone]), at 07/29/2024 3:21 PM Vahe Marvin MD IMG DX ORDERABLES * (ABNORMAL) APTT (07/29/2024 2:03 PM EST) Partial Thromboplastin Time >160(HHH) 25 - 37 sec 07/29/2024 2:56 PM EST [facility] Blood VENOUS BLOOD SPECIMEN / Unknown Venipuncture / Unknown 07/29/2024 2:03 PM EST 07/29/2024 2:13 PM EST Vahe Marvin MD HEMATOLOGY ORDERABLE S Performing Organization Address [facility]/ZIP Co de Phone Number [facility] [place] [address] * (ABNORMAL) Prothrombin Time (07/29/2024 2:03 PM [...] MD HEMATOLOGY ORDERABLE S Performing Organization Address City/[facility]/ZIP Co de Phone Number [facility] [place] [address] * CRP, acute inflammation (07/29/2024 2:03 PM EST) C-Reactive Protein <3.0 <=4.9 mg/L 07/29/2024 2:52 PM EST [facility] Blood VENOUS BLOOD SPECIMEN / Unknown Venipuncture / Unknown 07/29/2024 2:03 PM EST 07/29/2024 2:14 PM EST Vahe Marvin MD CHEMISTRY ORDERABLES [facility] [place] [address] * Lipid Panel (Reflex Direct LDL) (07/29/2024 2:03 PM EST) [facility] Signature Cholesterol, Total 133 mg/dL 07/29/2024 [...] PM EST [facility] - 07/29/2024 2:52 PM EST It [...] ACC/AHA Guidelines (most recently Rolf et al. [facility] 06/15/22): * For individuals with atherosclerotic [...] Marvin MD CHEMISTRY ORDERABLES Performing Organization Address City/[facility]/ZIP Co de Phone Number [facility] [place] [address] * TSH [place] (07/29/2024 2:03 PM EST) Thyroid Stimulating Hormone 0.70 0.27 - 4.20 mcIU/mL 07/29/2024 2:52 PM EST [facility] Blood VENOUS BLOOD SPECIMEN / Unknown Venipuncture / Unknown 07/29/2024 2:03 PM EST 07/29/2024 2:14 PM EST Vahe Marvin MD CHEMISTRY ORDERABLES Performing Organization Address [facility] Co de Phone Number [facility] [place] [address] * Hemoglobin A1c (07/29/2024 2:03 PM EST) [...] red blood cell turnover may not be technology sales representative of glycemic control. Reference Interval: [...] PM EST [facility] - 07/29/2024 2:41 PM EST Estimated average glucose (eAG) is calculated from the equation described in: Quinten ALVES, Rikki J, Reno R, et al. ??Translating the A1C assay into estimated average glucose values. ??Diabetes Care 2008:31(8):2158-3094. Additional resources are available on the ADA website (diabetes.org). Vahe Marvin MD CHEMISTRY ORDERABLES [facility] [place] [address] * (ABNORMAL) CBC (with Diff) (07/29/2024 2:03 [...] Immature Gran % 0.5 % 2:18 PM EST [facility] Immature Gran Absolute 0.09(H) 0.00 - 0.04 x10(3)/mc L 07/29/2024 2:18 PM EST [facility] Blood VENOUS BLOOD SPECIMEN / Unknown Venipuncture / Unknown 07/29/2024 2:03 PM EST 07/29/2024 2:13 PM EST Vahe Marvin MD HEMATOLOGY ORDERABLE S Performing Organization Address City/[facility]/ZIP Co de Phone Number [facility] [place] [address] * Phosphorus (07/29/2024 2:03 PM EST) Phosphorus 2.5 2.5 - 4.5 mg/dL 07/29/2024 2:52 PM EST [facility] Blood VENOUS BLOOD SPECIMEN / Unknown Venipuncture / Unknown 07/29/2024 2:03 PM EST 07/29/2024 2:14 PM EST Vahe Marvin MD CHEMISTRY ORDERABLES Performing Organization Address [facility] Co de Phone Number [facility] [place] [address] * Magnesium (07/29/2024 2:03 PM EST) Magnesium 0.70 0.69 - 1.07 mMol/L 07/29/2024 2:52 PM EST [facility] Blood VENOUS BLOOD SPECIMEN / Unknown Venipuncture / Unknown 07/29/2024 2:03 PM EST 07/29/2024 2:14 PM EST Vahe Marvin MD CHEMISTRY ORDERABLES Performing Organization Address [facility] Co de Phone Number [facility] [place] [address] * (ABNORMAL) Comprehensive metabolic panel (07/29/2024 2:03 [...] CHEMISTRY ORDERABLES [facility] [place] [address] * (ABNORMAL) Troponin - Single (07/29/2024 2:03 [...] can be found in the [facility] Test Catalog Troponin - https://[email or web address].org/catalogs/565/files/45135 Reference: Fourth [place] Definition of Myocardial Infarction. Journal of the [employer] College [employer] Cardiology 2018;72:5330-2110 Blood VENOUS BLOOD SPECIMEN / Unknown Venipuncture / Unknown 07/29/2024 2:03 PM EST 07/29/2024 2:14 PM EST Vahe Marvin MD CHEMISTRY ORDERABLES [facility] [place] [address] * (ABNORMAL) Blood Gas, Venous POC (07/29/2024 2:01 PM EST) pH, Venous 7.30(L) 7.32 - 7.42 07/29/2024 2:02 PM [facility] PCO2, Venous 42 38 - [...] 135 - 145 mmol/L 07/29/2024 2:02 PM [facility] Potassium, Venous 3.6 3.5 - 5.0 mmol/L 07/29/2024 2:02 PM [facility] Chloride, Venous 103 98 - 107 mmol/L 07/29/2024 2:02 PM EST [facility] Glucose, Venous 229(H) 65 - 199 mg/dL 07/29/2024 2:02 PM [facility] Comment:Glucose Concentratio n >=200 mg/dL plus symptoms is consistent with Diabetes Mellitus. Lactate, Venous 3.1(H) 0.5 - 2.2 mmol/L 07/29/2024 2:02 PM [facility] Ionized Calcium, Venous 1.11(L) 1.15 - 1.33 mmol/L 07/29/2024 2:02 PM [facility] Blood VENOUS BLOOD SPECIMEN / Unknown 07/29/2024 2:01 PM EST 07/29/2024 2:02 PM EST Vahe Marvin MD POINT OF CARE TEST O RDERABLES Performing Organization Address City/State/[facility] Co de Phone Number [facility] [place] [address] * CARDIAC CATHETERIZATION (07/29/2024 1:20 PM EST) Anatomical Region Laterality Modality Other Narrative 07/29/2024 2:02 PM EST ?[facility] ? Cardiac Catheterization/Intervention Report ? Patient Name: Korey Montoya. ? Procedure Date: 07/29/2024 ? A #: [id number] ? Primary Physician: Shavonne, Vahe S ? Case #: [id number] ? File Name: [id number] ? Catheterization Order Number: [id number] ? [facility] ? Final Report [place], [place] ? Patient Name: ? Korey P. Montoya ?ID#: ?[id number] ? : ?1950 ? Procedure Date: ? July 29, 2024 ?Case #: ? [id number] ? Room: ? 5 ? Case Physician: [...] procedure was Emergent. The indication for ?the cathode builder visit is ACS less than or equal [...] 3.5 guiding catheter and a 3.5 Fr [place] [address] ??20 Mhz using ?Manual pullback. ??Imaging [...] ? A premounted 3.00 x 22 mm [place] (LOW) was deployed ? with a maximum [...] ??A premounted 3.00 x 08 mm [place] (LOW) ? was deployed with a maximum [...] dose administered prior to arrival in the cathode builder. ?Recommended anti-platelet/anti-thrombotic regimen: ?Start aspirin 81 mg daily now and continue for 12 months then stop. ?Start clopidogrel 75 mg daily now and continue for indefinitely. ?These recommendations are made at the time of the intervention. Patient ?and provider preferences or a changing clinical situation may require ?modification of this regimen. Consult [facility] Interventional Cardiology for ?questions. ?The 1 year [...] able ?to start weaning his inotropes/vasopressors. A [place] Colette catheter was ?placed demonstrating improvement in [...] ventricular assist device insertion, right heart ?catheterization, [place] (flow directed cath) insertion, access site ?angiography, vascular ultrasound, venous line / sheath insert and vascular ?closure device. ? Vahe S Shavonne, M.D. ? Electronically Signed by: Vahe Marvin M.D. ? Report Finalized: 07/29/2024 ??13:55 ? Report Last Ammended: 07/30/2024 ??10:15 ? Procedure Note Vahe Marvin MD - 07/30/2024 [facility] Cardiac Catheterization/Intervention Report Patient Name: Korey Montoya Procedure Date: 07/29/2024 A #: [id number] Primary Physician: Vahe Marvin Case #: [id number] File Name: [id number] Catheterization Order Number: [id number] [facility] FinalReport [place], [place] Patient Name: Korey Montoya ID#:[id number] :1950 Procedure Date: July 29, 2024 Case [...] diagnostic procedure was Emergent. Theindication for the cathode builder visit is ACS less than or equal [...] 3.5 guiding catheter and a 3.[address] [place] [address] [address] 20 Mhzusing Manual pullback. Imaging was [...] The priority for the procedure was Emergent.[facility] procedure was STEMI-Immediate [...] The lesion was predilated with a 2.00mm [id number] MM balloon with a maximum inflation pressure of 12atmospheres. A premounted 3.00 x 22 mm [place] (LOW) wasdeployed with a maximum inflation pressure [...] atmospheres. A premounted 3.00 x 08 mm [place](LOW) was deployed with a maximum inflation pressure [...] dose administered prior to arrival in the cathode builder. Recommended anti-platelet/anti-thrombotic regimen: Start aspirin 81 mg daily now and continue for 12 months then stop. Start clopidogrel 75 mg daily now and continue for indefinitely. These recommendations are made at the time of the intervention.Patient and provider preferences or a changing clinical situation mayrequire modification of this regimen. Consult [facility] Interventional Cardiologyfor questions. The 1 year bleeding [...] wereable to start weaning his inotropes/vasopressors. A [place] Colette catheterwas placed demonstrating improvement in his [...] ventricular assist device insertion, right heart catheterization, [place] (flow directed cath) insertion, access site angiography, [...] O RDERABLES [facility] [place] [address] * (ABNORMAL) BLOOD GAS, POC (07/29/2024 12:12 [...] - 31 mmol/L 07/30/2024 7:30 AM EST [facility] Blood VENOUS BLOOD SPECIMEN / Unknown 07/29/2024 12:12 PM EST 07/30/2024 7:30 AM EST Vahe Marvin MD POINT OF CARE TEST O RDERABLES [facility] [place] [address] documented in this encounter Visit Diagnoses Diagnosis [...] 12.5 g, Intravenous, ONCE, 1 dose, On Tue07/29/24 at 1500, 1 bottle (unit) = 12.5 grams / 250 mL (Total Dose = 25 grams = 2 bottles), Routine New Bag 07/29/2024 2:49 PM EST 12.5 g albumin (human) 5% 250 mL intravenous solution 12.5 g, Intravenous, ONCE, 1 dose, On Tue07/29/24 at 1530, 1 bottle (unit) = 12.5 [...] Until Tue07/29/24 at 1533, [place] N.: alaynainet override aspirin EC tablet 81 mg 81 [...] based off of anti-Xa levels per the [facility] Anti-Xa Algorithm and inform the [facility] attending. [...] dose, Starting on 07/29/24 at 1509, Until Tue07/29/24 at 1736, Silvia Wan: cabinet override melatonin [...] 0.5 mL, Intravenous, ONCE, 1 dose, On 07/30/24 at 1230, Routine Given 07/30/2024 11:15 AM [...] PM EST 20 mEq 100 mL/ hr New Bag 07/30/2024 9:17 PM EST 20 mEq [...] shown in EST. Scheduled Medication Order 08/02/2024 08/03/202408/04/2024 aspirin EC tablet 81 mg 81 mg, [...] 0845 (Given - Provider: Tonya Watson RN) 7728 (Given - Provider: Tonya Watson RN) PRN Medication Order 08/02/2024 08/03/2024 08/04/2024 [...] Routine documented in this encounter Care Teams Supervisor [employer] Relationship Specialty Start Date End Date Alexia Mtz APRN [address] [place] [id number] PCP - General Family Medicine 07/30/24 documented as of this encounter
--- OUTSIDE RECORDS SUMMARY | 2024-09-19 11:35 | XMS_ITS | Encounter Summary ---
Author Organization [facility] Address [facility] [place] [address] Care Team Providers Care Stitch Bonding Machine Tender Helper Name Role Phone Yoel Artis FREDRICK Primary Care Provider [phone] Reason for Visit * Auth/Cert (Routine) Specialty Diagnoses / Procedures Referred By Theodore t Referred To Contact Diagnoses AIRO Procedures [employer] AIR[facility] Referral ID Status Reason Start Date Expiration Date Visits Re quested Visits Authorized [id number] 1 1 Encounter Details Date Type Department Care Team (Latest Contact Info) Description 07/29/2024 6:32 PM EST - 07/29/2024 11:59 PM [facility] Hospital Encounter [facility] at [address] [phone] Arvin Becerra MD [facility] [place] [address] Discharge Disposition: Home Social History Tobacco Use Types Packs/Day Years Used Date Smoking Tobacco: Former Cigarettes Smokeless Tobacco: Never Alcohol Use Standard Drinks/Week Comments Not Currently 0 (1 standard drink = 0.6 oz pur e alcohol) [facility] Utilities Answer Date Recorded In [...] any time in the past 12 m [facility], were you homeless or living in a fdc (including now)? No 07/30/2024 DH IPV Inpatient [...] evening. 04/17/2023 08/04/2024 nitroGLYcerin (NITROLINGUAL) 400 mcg/spray Cornelia, Non-AerosolIndications: Proctalgia fugax,Fecal smearing,Constipation, unspecified constipation type 1 spray to anus for proctalgia fugax as needed, not to exceed once daily 12 g 06/01/2023 08/04/2024 documented as of this encounter Plan of Treatment Upcoming Encounters Date Type Department Care Team (Late st Contact Info) Description 10/01/2024 10:00 AM EST Office Visit Cardiology at [address] [phone] Mushtaq Murphy APRN documented as of this encounter Visit Diagnoses Not on filedocumented in this encounter Care Teams Stitch Bonding Machine Tender Helper Relationship Specialty Start Date End Date Yoel Artis APRN [address] [place] [address] PCP - General Internal Medicine 11/18/22 07/29/24 documented as of this encounter
--- OUTSIDE RECORDS SUMMARY | 2024-09-19 11:35 | XMS_ITS | Encounter Summary ---
Author Organization [facility] Address [facility] [place] [address] Care Team Providers Care Forming Process Line Worker Name Role Phone Yoel Artis FREDRICK Primary Care Provider [phone] Encounter Details Date Type Department Care Team (Late st Contact Info) Description 07/29/2024 [place] [phone] Ivan Hernandez MD [facility] [address] Social History Tobacco Use Types Packs/Day Years Used Date Smoking Tobacco: Former Cigarettes Smokeless Tobacco: Never Alcohol Use Standard Drinks/Week Comments Not Currently 0 (1 standard drink = 0.6 oz pur e alcohol) [facility] Utilities Answer Date Recorded In the past 12 months has e [employer], gas, oil, or water [employer] threatened to shut off services in your [...] any time in the [facility] 12 [facility] were you [facility] or living in [...] 9:50 AM Hospital to which patient presented: [facility] If Hospital to which patient presented= [facility] [place] [place]: ED Walk In Medical History (prior to [...] Unfractionated Heparin Plan STEMI Alert called: Yes Compressed Gas Tester Activated by: Cement Mason Helper Initial Disposition: Admit Compressed Gas Tester documented in this encounter Plan of Treatment Upcoming Encounters Date Type Department Care Team (Late st Contact Info) Description 10/01/2024 10:00 AM EST Office Visit Cardiology at [address] [phone] Mushtaq Murphy APRN documented as of this encounter Visit Diagnoses Not on filedocumented in this encounter Care Teams Forming Process Line Worker Relationship Specialty Start Date End Date Yoel Artis APRN [address] [place] [address] PCP - General Internal Medicine 11/18/22 07/29/24 documented as of this encounter
--- OUTSIDE RECORDS SUMMARY | 2024-09-19 11:35 | XMS_ITS | Encounter Summary ---
[place] [address] Care Team Providers Care Irradiated Fuel Handler Name Role Phone Yoel Artis Ute ALCALA Primary Care Provider [phone] Reason for Visit * Auth/Cert (Routine) Specialty Diagnoses / Procedures Referred By Theodore t Referred To Contact Diagnoses STEMI (ST elevation myocardial infarction) STEMI Procedures ER IPI Vahe Marvin MD [facility] [place] [address] [facility] Referral ID Status Reason Start Date Expiration Date Visits Re quested Visits Authorized [id number] 1 1 Encounter Details Date Type Department Care Team (Late st Contact Info) Description 07/29/2024 12:00 PM EST - 07/29/2024 12:54 PM EST Surgery Lasting [place] [address] Vahe Marvin MD [facility] [place] [address] CARDIAC CATHETERIZATION Social History Tobacco Use Types [...] in the past 12 m [facility], were you homeless or living in a chcf (including now)? No 07/30/2024 DH IPV Inpatient [...] Korey Montoya Patient Age: 74 y.o. Language: Ukrainian Race: White Ethnicity: Not nor Admit date: [...] please contact your inpatient physician through the [facility] Dispensing Operator . Issues afterhours and on weekends [...] EKG. Patient transferred via air ambulance to [facility] on 07/29 for LHC and LOW to [...] EKG. Was transferred via air ambulance to [facility] for further management and LHC demonstrated 100% [...] the next year. Access was via right BOWLING BALL ASSEMBLER and this sitewas clean, dry and intact [...] for Chest pain. Replaces: nitroGLYcerin 400 mcg/spray [place], Non-Aerosol 0.4 mg Quantity: 90 tablet Refills: [...] Refills: 0 STOPPED Medications nitroGLYcerin 400 mcg/spray [place], Non-Aerosol Commonly known as: NITROLINGUAL Replaced by: [...] of one year. After this time, your busboy will determine if you need to continue [...] away. Stay on the phone. The emergency run boat operator will tell you what to do. [...] appointments: During 8am-5pm Tuesday through Tuesday call [phone] to speak with a nurse in the cardiology clinic All other times call [phone] and ask to speak to the global account manager secondary history teacher. Follow up Appointments: PCP Alexia Mtz, BEAUTICIAN APPRENTICE [phone]. Please call to establish a follow up appointment within 1-2 weeks of discharge. Cardiology. Referral to heart failure has been sent. General Instructions None Future Appointments and Orders Future Orders Complete By Expires Referral to Cardiac Rehab [[id number] Custom] As directed Process Instructions: If no progress note charted, please enter Clinical details in comments. Scheduling Instructions: Questions: My question or request is: STEMI, PCI- cardiac rehab at [facility] Referral to Cardiology [REF12 Custom] [...] of one year. After this time, your busboy will determine if you need to continue [...] away. Stay on the phone. The emergency run boat operator will tell you what to do. [...] appointments: During 8am-5pm Tuesday through Tuesday call [phone] to speak with a nurse in the cardiology clinic All other times call [phone] and ask to speak to the global account manager secondary history teacher. Follow up Appointments: PCP Alexia Mtz, BEAUTICIAN APPRENTICE [phone]. Please call to establish a follow up [...] EKG. Patient transferred via air ambulance to [facility] on 07/29 for LHC and LOW to LAD for 100% occlusion Social History: Pt lives with his in a 1 level home with 2 NAOMI. 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 He [...] Total time: 35 (tef) minutes Time IN/OUT: 5433-7814 ZAIDA DUBOSE PT Pager: [phone] Physical Therapy Inpatient Rehabilitation Department * Yrn Velazquez MD - 08/03/2024 10:38 AM EST CV HOSPITALIST 2 - [facility] DAILY PROGRESS NOTE Page [phone] to reach a provider 04/04 Admit Date: [...] Cardiac Markers Recent Labs 07/30/24 0809 07/29/24 22307/29/24201007/29/24 16507/29/24 1403 TROPONINTHS 8,651* >10,000* >10,000* >10,000* >10,000* Endocrine Recent Labs 07/29/24 1403 TSH 0.70 HA1C 5.3 Recent Labs 07/29/24 1403 CHLPL 133 TRIG 45 HDL 58 LDLCHOL 64 Recent Labs 08/03/24 0516 08/02/24 0747 08/02/24 0420 08/01/24 2035 08/01/24 1655 08/01/24 1242 08/01/24 0744 08/01/24 0418 07/31/24204007/31/24 1104 07/31/24 0747 07/31/24 0108 07/30/24200207/30/24 1823 [...] Compared to the overnight study by the secondary history teacher fellow the impella position is stable. 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 [facility] 07/29/24 Conclusions: * One vessel coronary artery disease (LAD) * Mild pulmonary hypertension * Elevated pulmonary capillary wedge pressure * Successful stent insertion of the proximal LAD lesion * See Dual Antiplatelet (DAPT) Recommendations above * Successful impella placement for cardiogenic shock. Telemetry: I have personally reviewed and interpreted the telemetry from the last 24 hours. [facility] Assessment: ASSESSMENT: Korey Montoya is a 74 y.o. male w/ PMH of hypertension, HLD, and BPH who presents for chief concern of chest pain after being found to have ST elevations on EKG. Patient transferred via air ambulance to [facility] on 07/29 for LHC and LOW to [...] be determined OT: PCP Alexia Mtz, FREDRICK [phone] * Zaida Dubose, PT - 08/02/2024 2:08 PM EST Physical Therapy Evaluation Patient profile: Korey Montoya is a 74 y.o. male w/ PMH of hypertension, HLD, and BPH who presents for chief concern of chest pain after being found to have ST elevations on EKG. Patient transferred via air ambulance to [facility] on 07/29 for LHC and LOW to LAD for 100% occlusion Social History: Pt lives with his in a 1 level home with 2 NAOMI. 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 He drives. home to assist as needed. Precautions/Special Considerations: At risk to fall; recent STEMI Mobility and Positioning Recommendations: OOB to chair with 1 cg assist; rolling walker Pt to ambulate 3-4x/daily with 1 assist; walker or trial without device Please encourage up to chair for meal times as able. Pt seen for evaluation today in the CV. Pt in the bed at start of [...] Total time: 37 (eval) minutes Time IN/OUT: 2936-8013 ZAIDA DUBOSE PT Pager: [phone] Physical Therapy Inpatient Rehabilitation Department * Gagan [...] EKG. Patient transferred via air ambulance to [facility] on 07/29 for LHC and LOW to LAD for 100% occlusion. TTE showed apical akinesis and inferior hypokinesis with EF 20%. RHC showed elevated filling pressures. Impella placed and P-level 6 at time of transfer to [facility]. CI initially 1.97, improved to 2.2 [...] PCP: Alexia Mtz APRN PCP phone number: [phone] Date of Admission: 07/29/2024 ( Hospital Day 4 days ) Attending:Bridgette Stauffer MD ID: Korey Montoya is a 74 y.o. male w/ PMH of hypertension, HLD, and BPH on Hospital Day4 for chief concern of chest pain after being found to have ST elevations on EKG. Patient transferred via air ambulance to [facility] on 07/29 for LHC and LOW to [...] 07/29/24 1621 PHART 7.48* 7.44 7.38 7.37 [id number] 29* 29* 34* 36 PO2ART 71* 109* 141* 71* [id number] 20.6 19.4* 19.5* 20.4 VBG (Venous Blood Gas) Recent Labs 07/29/24 1401 PHVEN 7.30* PO2VEN 39 YDS0WSQ 20.1* Mixed Venous Sat No results for input(s): C6GBCH7 in the last 168 hours. Objective: Vitals [...] (cm) 70 07/29/241999 Phlebitis 0-->no symptoms 07/30/24 0600 Infiltration 0-->no symptoms 07/30/24 06 Waveform normal [...] 07/29/24 1621 PHART 7.48* 7.44 7.38 7.37 RSY6JNT 29* 29* 34* 36 PO2ART 71* 109* 141* 71* CBT6XOM 20.6 19.4* 19.5* 20.4 VBG (Venous Blood Gas) Recent Labs 07/29/24 1401 PHVEN 7.30* PO2VEN 39 ELE1FWG 20.1* Mixed Venous Sat No results for input(s): I9AHFI3 in the last 168 hours. Microbiology: Microbiology Results (Last 30 days) Procedure Component Value Units Date/Time Blood culture [[id number]] Collected: 07/29/24 160 Lab Status: Preliminary result Specimen: Blood, Venous Updated: 08/01/24 170 Blood Culture No growth at 72 hours Blood culture [[id number]] Collected: 07/29/241607 Lab Status: Preliminary result Specimen: Blood, Venous Updated: 08/01/241700 Blood Culture No growth at 72 hours Imaging: Results for orders placed or performed during the hospital encounter of 07/29/24 XR Chest One View (Exam End: 07/29/2024 2:30 PM) Result Value WORKSTATION ID [id number] Impression 1. No pulmonary edema. 2. No pleural effusion. 3. No pneumothorax. Thank you for letting us participate in the care of this patient. If you are a health care provider and have any questions regarding this report, please contact the number below. For patients who have questions please contact the health foster care case manager that requested your imaging first. Electronically signed by: Chris Candelaria MD, [facility] ([phone]), at 07/29/2024 3:21 PM TTE ( 07/30/24) [...] Compared to the overnight study by the secondary history teacher fellow the impella position is stable. The [...] EKG. Patient transferred via air ambulance to [facility] on 07/29 for LHC and LOW to [...] MD Internal Medicine, PGY-1 Cardiology, [facility] 08/02/24 12:45 PM CARDIOLOGY STAFF NOTE [...] today). Transfer to floor. Krystal Parker MD, [facility], [facility] Staff Fashion Consultant Sales micropaleontologist * Gagan Catherine MD - 08/01/2024 11:12 [...] EKG. Patient transferred via air ambulance to [facility] on 07/29 for LHC and LOW to [...] was weaned upon arrival to [facility] to norepinephrine 20and levo 0.04 N [...] PCP: Alexia Mtz APRN PCP phone number: [phone] Date of Admission: 07/29/2024 ( Hospital Day 3 days ) Attending:Krystal Parker MD ID: Korey Montoya is a 74 y.o. male w/ PMH of hypertension, HLD, and BPH on Hospital Day3 for chief concern of chest pain after being found to have ST elevations on EKG. Patient transferred via air ambulance to [facility] on 07/29 for LHC and LOW to [...] 07/29/24 1621 PHART 7.48* 7.44 7.38 7.37 [id number] 29* 29* 34* 36 PO2ART 71* 109* 141* 71* LDK6BWR 20.6 19.4* 19.5* 20.4 VBG (Venous Blood Gas) Recent Labs 07/29/24 1401 PHVEN 7.30* PO2VEN 39 KYA1KDN 20.1* Mixed Venous Sat No results for input(s): K8FRLJ0 in the last 168 hours. PA Catheter [...] symptoms 07/30/24 06 Infiltration 0-->no symptoms 07/30/24599 Waveform normal 07/30/24599 [...] 07/29/24 1621 PHART 7.48* 7.44 7.38 7.37 XAR3XRE 29* 29* 34* 36 PO2ART 71* 109* 141* 71* DUH7JLD 20.6 19.4* 19.5* 20.4 VBG (Venous Blood Gas) Recent Labs 07/29/24 1401 PHVEN 7.30* PO2VEN 39 HTG2POU 20.1* Mixed Venous Sat No results for input(s): I3CSKO0 in the last 168 hours. Microbiology: Microbiology Results (Last 30 days) Procedure Component Value Units Date/Time Blood culture [[id number]] Collected: 07/29/241607 Lab Status: Preliminary result Specimen: Blood, Venous Updated: 07/31/241700 Blood Culture No growth at 48 hours Blood culture [[id number]] Collected: 07/29/241607 Lab Status: Preliminary result Specimen: Blood, Venous Updated: 07/31/241700 Blood Culture No growth at 48 hours Imaging: Results for orders placed or performed during the hospital encounter of 07/29/24 XR Chest One View (Exam End: 07/29/2024 2:30 PM) Result Value WORKSTATION ID [id number] Impression 1. No pulmonary edema. 2. No pleural effusion. 3. No pneumothorax. Thank you for letting us participate in the care of this patient. If you are a health care provider and have any questions regarding this report, please contact the number below. For patients who have questions please contact the health foster care case manager that requested your imaging first. Electronically signed by: Chris Candelaria MD, [facility] ([phone]), at 07/29/2024 3:21 PM TTE ( 07/30/24) [...] Compared to the overnight study by the secondary history teacher fellow the impella position is stable. The [...] EKG. Patient transferred via air ambulance to [facility] on 07/29 for LHC and LOW to [...] Ornelas MD Internal Medicine, PGY-1 Cardiology, [facility] 08/01/24 7:13 AM CARDIOLOGY STAFF NOTE I [...] with him; questions answered. Krystal Parker MD, [facility], [facility] Staff Fashion Consultant Sales micropaleontologist * Krystal Parker MD - 07/31/2024 1:06 [...] EKG. Patient transferred via air ambulance to [facility] on 07/29 for LHC and LOW to LAD for 100% occlusion. TTE showed apical akinesis and inferior hypokinesis with EF 20%. RHC showed elevated filling pressures. Impella placed and P-level 6 at time of transfer to [facility]. CI initially 1.97, improved to 2.2 After impella. Received about 3 L of fluid during procedural course. Patient initially required norepinephrine 30, epinephrine 10, and vasopressin 0.04 for hemodynamic support, which was weaned upon arrival to [facility] to norepinephrine 20and levo 0.04 N [...] PCP: Alexia Mtz APRN PCP phone number: [phone] Date of Admission: 07/29/2024 ( Hospital Day 2 days ) Attending:Krystal Parker MD ID: Korey Montoya is a 74 y.o. male w/ PMH of hypertension, HLD, and BPH on Hospital Day2 for chief concern of chest pain after being found to have ST elevations on EKG. Patient transferred via air ambulance to [facility] on 07/29 for LHC and LOW to [...] mg/min (07/31/24799) heparin (porcine) infusion 7 Units/kg/hr (07/31/24 08) ABG (Arterial Blood Gas) Recent Labs 07/30/24 0816 07/30/24 0057 07/29/24 1621 PHART 7.44 7.38 7.37 CFF4HHU 29* 34* 36 PO2ART 109* 141* 71* HHM5AWH 19.4* 19.5* 20.4 VBG (Venous Blood Gas) Recent Labs 07/29/24 1401 PHVEN 7.30* PO2VEN 39 SIK5BVQ 20.1* Mixed Venous Sat No results for input(s): I2ZDRB5 in the last 168 hours. PA Catheter [...] flushed 07/29/241999 Labs: Recent Labs 07/31/24 0108 07/30/24 02107/29/24 1403 07/29/24 1246 07/29/24 1212 WBC 10.25* 11.25* 19.50* -- -- HGB 11.2* 12.2* 13.1* -- -- HCT 33.9* 37.1* 40.1* 39.0* 36.0* PLATELET 109* 166 236 -- -- MCV 82.1* 82.4* 83.4 -- -- Recent Labs 07/31/24 01007/30/24200207/30/24 1508 07/30/2421007/29/24201007/29/24 1403 NA 140 -- 141 [...] 0057 07/29/24 1621 PHART 7.44 7.38 7.37 IPV9XPY 29* 34* 36 PO2ART 109* 141* 71* OVN1GGF 19.4* 19.5* 20.4 VBG (Venous Blood Gas) Recent Labs 07/29/24 1401 PHVEN 7.30* PO2VEN 39 JLV6OTX 20.1* Mixed Venous Sat No results for input(s): I7DOPY1 in the last 168 hours. Microbiology: Microbiology Results (Last 30 days) Procedure Component Value Units Date/Time Blood culture [[id number]] Collected: 07/29/241607 Lab Status: Preliminary result Specimen: Blood, Venous Updated: 07/30/24 170 Blood Culture No Growth at 18-24 hrs. Blood culture [[id number]] Collected: 07/29/241607 Lab Status: Preliminary result Specimen: Blood, Venous Updated: 07/30/241700 Blood Culture No Growth at 18-24 hrs. Imaging: Results for orders placed or performed during the hospital encounter of 07/29/24 XR Chest One View (Exam End: 07/29/2024 2:30 PM) Result Value WORKSTATION ID [id number] Impression 1. No pulmonary edema. 2. No pleural effusion. 3. No pneumothorax. Thank you for letting us participate in the care of this patient. If you are a health care provider and have any questions regarding this report, please contact the number below. For patients who have questions please contact the health foster care case manager that requested your imaging first. Electronically signed by: Chris Candelaria MD, [facility] ([phone]), at 07/29/2024 3:21 PM TTE ( 07/30/24) [...] Compared to the overnight study by the secondary history teacher fellow the impella position is stable. The [...] EKG. Patient transferred via air ambulance to [facility] on 07/29 for LHC and LOW to [...] work to optimize volume status while continuing pgbhbht-golzbd-jmfwphsisf therapies at this time. Obtain comprehensive TTE. [...] EKG. Patient transferred via air ambulance to [facility] on 07/29 for LHC and LOW to LAD for 100% occlusion. TTE showed apical akinesis and inferior hypokinesis with EF 20%. RHC showed elevated filling pressures. Impella placed and P-level 6 at time of transfer to [facility]. CI initially 1.97, improved to 2.2 After impella. Received about 3 L of fluid during procedural course. Patient initially required norepinephrine 30, epinephrine 10, and vasopressin 0.04 for hemodynamic support, which was weaned upon arrival to [facility] to norepinephrine 20and levo 0.04 N - Neuro intact. Chest pain with deep breathing this morning. Initiate tylenol. P - Room air. C - STEMI s/p OLW x2. CI 2.5, SVR 1400 with dobutamine [...] supporting interventions and documentation on the unit. Gagna Catherine MD 07/30/2024 * Susannah Ornelas MD - 07/30/2024 6:22 AM EST Images from the original note were not included. Cardiology ICU Progress Note Patient info: Name: Korey Montoya : 1950 PCP: Yoel Artis APRN PCP phone number: [phone] Date of Admission: 07/29/2024 ( Hospital Day 1 day ) Attending:Aubree Silverio MD ID: Korey Montoya is a 74 y.o. male w/ PMH of hypertension, HLD, and BPH on Hospital Day1 for chief concern of chest pain after being found to have ST elevations on EKG. Patient transferred via air ambulance to [facility] on 07/29 for LHC and LOW to [...] 0057 07/29/24 1621 PHART 7.44 7.38 7.37 KXI6NWS 29* 34* 36 PO2ART 109* 141* 71* FYZ1DBF 19.4* 19.5* 20.4 VBG (Venous Blood Gas) Recent Labs 07/29/24 1401 PHVEN 7.30* PO2VEN 39 BNZ9LHP 20.1* Lactate ( Last 12 hours) 1.3 >> 1.2 Mixed Venous Sat No results for input(s): W6CRVY0 in the last 168 hours. PA Catheter [...] 0057 07/29/24 1621 PHART 7.44 7.38 7.37 PMQ5TTW 29* 34* 36 PO2ART 109* 141* 71* DFX0FJI 19.4* 19.5* 20.4 VBG (Venous Blood Gas) Recent Labs 07/29/24 1401 PHVEN 7.30* PO2VEN 39 WHA6ANX 20.1* Mixed Venous Sat No results for input(s): W6GRKT3 in the last 168 hours. Microbiology: Microbiology Results (Last 30 days) Procedure Component Value Units Date/Time Blood culture [[id number]] Collected: 07/29/24 1608 Lab Status: In process Specimen: Blood, Venous Updated: 07/29/24 1626 Blood culture [[id number]] Collected: 07/29/24 1608 Lab Status: In process Specimen: Blood, Venous Updated: 07/29/24 1615 Imaging: Results for orders placed or performed during the hospital encounter of 07/29/24 XR Chest One View (Exam End: 07/29/2024 2:30 PM) Result Value WORKSTATION ID [id number] Impression 1. No pulmonary edema. 2. No pleural effusion. 3. No pneumothorax. Thank you for letting us participate in the care of this patient. If you are a health care provider and have any questions regarding this report, please contact the number below. For patients who have questions please contact the health foster care case manager that requested your imaging first. Medications [...] EKG. Patient transferred via air ambulance to [facility] on 07/29 for LHC and LOW to [...] EKG. Patient transferred via air ambulance to [facility] on 07/29 for LHC and LOW to [...] EKG. Was transferred via air ambulance to [facility] for further management and C demo nstrated 100% occlusion. No significant RCA, LMCA, or LCX disease. LOW placed in LAD with some residual distal disease meriting placement of overlapping distal stent. TTE showed apical akinesis and inferior hypokinesis with EF 20%. RHC showed elevated filling pressures. Impella placed and P-level 6 at time of transfer to [facility]. CI initially 1.97, improved to 2.2 After impella. Received about 3 L of fluid during procedural course. Patient initially required norepinephrine, epinephrine, and vasopressin for hemodynamic support, which was weaned upon arrival to [facility] to norepinephrine 20 and levo 0.04 [...] performed by Brandan Mcgovern MD [facility] ENDOSCOPY Significant Family History: Family History [...] mouth. Past Week nitroGLYcerin (NITROLINGUAL) 400 mcg/spray [place], Non-Aerosol 1 spray to anus for proctalgia [...] 3.5 guiding catheter and a 3.5 Fr [place] [facility] 20 Mhz using Manual pullback. Imaging [...] priority for the procedure was Emergent. The [facility] indication for the procedure [...] atmospheres. A premounted 3.00 x 22 mm [place] (LOW) was deployed with a maximum inflation [...] A premounted 3.00 x 08 mm [place] (LOW) was deployed with a maximum inflation [...] a limited study performed by a fellow secondary history teacher to evaluate for cardiogenic shock with impella [...] Compared to the overnight study by the secondary history teacher fellow the impella position is stable. The [...] EKG. Patient transferred via air ambulance to [facility] on 07/29 for LHC and LOW to [...] PCP: Yoel Artis APRN PCP phone number: [phone] Date of Admission: 07/29/2024 ( Hospital Day 0 days ) Attending:Aubree Silverio MD ID: Korey Montoya is a 74 y.o. male w/ PMH of hypertension, HLD, and BPH who presents for chief concern of chest pain after being found to have ST elevations on EKG. Patient transferred via air ambulance to [facility] on 07/29 for LHC and LOW to LAD for 100% occlusion. HPI: Korey Montoya is a 74 y.o. male w/ PMH of hypertension, HLD, and BPH who presents for chief concern of chest pain after being found to have ST elevations on EKG. Patient transferred via air ambulance to [facility] on 07/29 for LHC and LOW to [...] EKG. Was transferred via air ambulance to [facility] for further management and LHC demonstrated 100% [...] performed by Brandan Mcgovern MD [facility] ENDOSCOPY Family History Family History Problem [...] Blood Gas) No results for input(s): PHART, MMF7DZO, PO2ART, DSO2NIC, LACTATEVEN, MXM5BTN, PFRATIOART2 in the last 168 hours. VBG (Venous Blood Gas) Recent Labs 07/29/24 1401 PHVEN 7.30* PO2VEN 39 FGS4WQC 20.1* Mixed Venous Sat No results for input(s): E4WARL7 in the last 168 hours. PA Catheter [...] Blood Gas) No results for input(s): PHART, VYV4FQY, PO2ART, VAX7PWN, LACTATEVEN, MUF8OMG, PFRATIOART2 in the last 168 hours. VBG (Venous Blood Gas) Recent Labs 07/29/24 1401 PHVEN 7.30* PO2VEN 39 ZVC6PHZ 20.1* Mixed Venous Sat No results for input(s): S3WJAH2 in the last 168 hours. Microbiology: Microbiology [...] EKG. Patient transferred via air ambulance to [facility] on 07/29 for LHC. Found to have 100% occlusion of LAD for which he underwent LOW to LAD.Otherwise no other significant vessel disease. Fahad is currently hemodynamically tenuous but improving upon admission to [facility], requiring hemodynamic support with norepinephrine and vasopressin at time of admission along with mechanical support with Impella device. Reassuringly, he demonstrates decreasing pressor requirements since admission to [facility], with epinephrine completely weaned. He does [...] MD Internal Medicine, PGY-3 Cardiology, [facility] 07/29/24 3:14 PM Cardiology Attending Note [...] MD, FACP, FACC Section of Cardiovascular Medicine [facility] Detasselermetal engineering process worker [facility] [employer] [facility] This patient meets or has [...] to the planned procedure. Hand Hygiene: The patient accounts clerk did perform hand hygiene prior to arterial [...] ease. Good wave form. Ivan Hernandez MD Hospice Manager Associated attestation - Rolando Yeh MD [...] in an outpatient cardiac rehabilitation program at [facility] was discussed. Patient agrees to [...] MEDICARE Payor: [employer] MANAGED MEDICARE / Plan: [facility] / Product [...] Date of Discharge: 08/04/2024 Gaby Wong RN, Pager-[phone] * Initial Assessments - Char Meza OT - 08/03/2024 10:00 AM EST Occupational Therapy Evaluation Patient profile: Korey Montoya is a 74 y.o. male admitted on 07/29/2024 w/ PMH of hypertension, HLD, and BPH who presents for chief concern of chest pain after being found to have ST elevations onEKG. Patient transferred via air ambulance [place] [facility] [place] for LHC and LOW to LAD for 100% occlusion. Past Medical History: Diagnosis Date ADHD HLD (hyperlipidemia) HTN (hypertension) Tremor Past Surgical History: Procedure Laterality Date HAND SURGERY PRO COLONOSCOPY, REMV LESN, SNARE N/A 08/30/2023 COLONOSCOPY, POLYPECTOMY, REMOVAL LESION BY SNARE (WRVU 4.57) performed by Brandan Mcgovern MD [facility] ENDOSCOPY Social History: Patient lives with his . Home Setup: 2 NAOMI to a 1 level home. DME: none Baseline ADL/Mobility: Independent with ADLs and IADLs. Enjoys walking. able assist as needed. Precautions/Special Considerations: Full code. Risk for falls. Subjective: I have access to an [employer] gym. (Educated to wait for MD to [...] been seen for occupational therapy evaluation. Korey Kyrie NunesMontoya presents with the following performance skill deficits [...] evaluation only Total Minutes, Occupational Therapy: 14 ([id number] (evaluation)) 2017 OT Evaluation Code Rationale: Diagnosis [...] and measurable assessment of functional outcome. Pager: [phone] Char Meza OT 08/03/2024 Occupational Therapy Rehabilitation [...] (Interventions Implemented as Appropriate) Flowsheets (Taken 08/01/2024 0398) Outcome Summary: A+O, no pain. NSR. 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 BALL ASSEMBLER Access: Right BOWLING BALL ASSEMBLER A time-out was conducted prior to the [...] Admitted From: Transfer from another hospital Location: [facility] Reason for Hospitalization: chest pain Past [...] it) Home Address confirmed as: Mailing Address: [address] [address] Physical Address: [address] [place] [address] Social & Family Supports: All names listed [...] points: Addiction likely Health/Prescription Coverage: Primary Insurance: [facility] MANAGED MEDICARE Payor: [facility] MANAGED MEDICARE / Plan: AARP [employer] MANAGED MEDICARE COMPLETE / Product Type: *No Product type* / Secondary Insurance: N/A ; Prescription Coverage: Yes Preferred Pharmacy: [address] - [address] [address] Status: Patient is a : No Primary Care Provider confirmed: Alexia Mtz, BEAUTICIAN APPRENTICE [phone] Patient/Caregiver Goals of Treatment: return home Potential [...] 07/29/2024 6:25 PM EST 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 CXR and EKG completed. [...] Procedure Note: Patient Name: Korey Montoya : [id number] MR#: [id number] Case Date: 07/29/2024 Dispensing Operator: Surgeons and Role: * Vahe Marvin MD - Primary * Susannah Watts PA - Physician Sebd Teacher Preoperative diagnosis: STEMI Postoperative diagnosis: * STEMI, LAD Artery * * Cardiogenic Shock * Procedure(s) performed: [facility] Coronary angiogram Stent insertion coronary IVUS coronary Venous line insert [facility] Demorest Colette Catheter Vascular closure device Ventricular assist [...] x 22 mm to 14 deonna JEISON [place] with LIZ 3 flow. Residual distal disease at distal stent, overlapping distal stent was inserted with 3.0 x 8 mm JEISON [place]. Systolic's in the 80's sustained. Patient re [...] AM EST Office Visit Cardiology at [address] [phone] Mushtaq Murphy, BEAUTICIAN APPRENTICE Scheduled Orders Name Type Priority Associated [...] CBC (with Diff) (08/04/2024 6:08 AM EST) [facility] White Blood Cell 7.27 4.00 - [...] EST Bridgette Stauffer MD HEMATOLOGY ORDERABLE S [facility] [place] [address] * Magnesium (08/04/2024 6:08 AM EST) Magnesium 0.85 0.69 - 1.07 mMol/L 08/04/2024 7:07 AM [facility] Blood VENOUS BLOOD SPECIMEN / Unknown Venipuncture / Unknown 08/04/2024 6:08 AM EST 08/04/2024 6:19 AM EST Bridgette Stauffer MD CHEMISTRY ORDERABLES [facility] [place] [address] * Basic Metabolic Panel (08/04/2024 6:08 AM [...] AM EST Bridgette Stauffer MD CHEMISTRY ORDERABLES [facility] [place] [address] * (ABNORMAL) CBC (with Diff) (08/03/2024 5:16 [...] 0.10 x10(3)/mc L 08/03/2024 5:29 AM EST [facility] Immature Gran % 0.3 % 5:29 AM [facility] Immature Gran Absolute <0.04 0.00 - 0.04 x10(3)/mc L 08/03/2024 5:29 AM [facility] Blood VENOUS BLOOD SPECIMEN / Unknown Venipuncture / Unknown 08/03/2024 5:16 AM EST 08/03/2024 5:23 AM EST Bridgette Stauffer MD HEMATOLOGY ORDERABLE S Performing Organization Address City/[facility]/ZIP Co de Phone Number [facility] [place] [address] * Magnesium (08/03/2024 5:16 AM EST) Magnesium 0.89 0.69 - 1.07 mMol/L 08/03/2024 5:56 AM [facility] Blood VENOUS BLOOD SPECIMEN / Unknown Venipuncture / Unknown 08/03/2024 5:16 AM EST 08/03/2024 5:23 AM EST Bridgette Stauffer MD CHEMISTRY ORDERABLES Performing Organization Address City/[facility]/ZIP Co de Phone Number [facility] [place] [address] * (ABNORMAL) Basic Metabolic Panel (08/03/2024 5:16 [...] 135 - 145 mMol/L 08/03/2024 5:56 AM [facility] Potassium 4.5 3.5 - 5.0 mMol/L 08/03/2024 5:56 AM EST [facility] Chloride 106 98 - [...] AM EST Bridgette Stauffer MD CHEMISTRY ORDERABLES [facility] [place] [address] * POC, GLUCOSE (08/02/2024 7:47 AM EST) [...] O RDERABLES [facility] [place] [address] * (ABNORMAL) CBC (with Diff) (08/02/2024 4:20 [...] EST Bridgette Stauffer MD HEMATOLOGY ORDERABLE S [facility] [place] [address] * Magnesium (08/02/2024 4:20 AM EST) Magnesium 0.79 0.69 - 1.07 mMol/L 08/02/2024 5:06 AM [facility] Blood VENOUS BLOOD SPECIMEN / Unknown Venipuncture / Unknown 08/02/2024 4:20 AM EST 08/02/2024 4:37 AM EST Bridgette Stauffer MD CHEMISTRY ORDERABLES Performing Organization Address City/[facility]/ZIP Co de Phone Number [facility] [place] [address] * (ABNORMAL) Basic Metabolic Panel (08/02/2024 4:20 [...] - 15 mMol/L 08/02/2024 5:06 AM EST [facility] Calcium 8.1(L) 8.5 - 10.5 mg/dL 08/02/2024 5:06 AM EST [facility] Est Glomerular Filtration Rate - Male 91 mL/min/1. 73 m?? 08/02/2024 5:06 AM EST [facility] [...] AM EST Bridgette Stauffer MD CHEMISTRY ORDERABLES [facility] [place] [address] * Potassium (08/01/2024 8:39 PM EST) Potassium 4.0 3.5 - 5.0 mMol/L 08/01/2024 9:21 PM EST [facility] Blood VENOUS BLOOD SPECIMEN / Unknown Venipuncture / Unknown 08/01/2024 8:39 PM EST 08/01/2024 8:51 PM EST Aubree Silverio MD CHEMISTRY ORDERABL ES Performing Organization Address City/[facility]/ZIP Co de Phone Number [facility] [place] [address] * POC, GLUCOSE (08/01/2024 8:35 PM EST) Glucometer, POC 112 65 - 199 mg/dL 08/01/2024 8:36 PM EST [facility] Comment:Supplemental ranges: <140 mg/dL before meals <180 mg/dL all other times of the day. Blood CAPILLARY BLOOD / Unknown 08/01/2024 8:35 PM EST 08/01/2024 8:36 PM EST Krystal Parker MD POINT OF CARE TEST O RDERASHAY [facility] [place] [address] * POC, GLUCOSE (08/01/2024 4:55 PM EST) Glucometer, POC 99 65 - 199 mg/dL 08/01/2024 4:56 PM EST [facility] Comment:Supplemental ranges: <140 mg/dL before meals <180 mg/dL all other times of the day. Blood CAPILLARY BLOOD / Unknown 08/01/2024 4:55 PM EST 08/01/2024 4:56 PM EST Krystal Parker MD POINT OF CARE TEST O JOSH Performing Organization Address [facility]/ZIP Co de Phone Number [facility] [place] [address] * POC, GLUCOSE (08/01/2024 12:42 PM EST) Glucometer, POC 130 65 - 199 mg/dL 08/01/2024 12:43 PM EST [facility] Comment:Supplemental ranges: <140 mg/dL before meals <180 mg/dL all other times of the day. Blood CAPILLARY BLOOD / Unknown 08/01/2024 12:42 PM EST 08/01/2024 12:43 PM EST Krystal Parker MD POINT OF CARE TEST O JOSH [facility] [place] [address] * (ABNORMAL) Cooximetry, POC (08/01/2024 10:45 AM [...] O RDERABLES [facility] [place] [address] * Potassium (08/01/2024 8:20 AM EST) Pathologist [facility] Potassium 4.0 3.5 - 5.0 mMol/L 08/01/2024 10:17 AM EST [facility] Blood ARTERIAL BLOOD / Unknown Venipuncture / Unknown 08/01/2024 8:20 AM EST 08/01/2024 8:30 AM EST Aubree Silverio MD CHEMISTRY ORDERABL ES [facility] [place] [address] * POC, GLUCOSE (08/01/2024 7:44 AM EST) [facility] Glucometer, POC 86 65 - 199 mg/dL 08/01/2024 7:44 AM [facility] Comment:Supplemental ranges: <140 mg/dL before meals <180 mg/dL all other times of the day. Blood CAPILLARY BLOOD / Unknown 08/01/2024 7:44 AM EST 08/01/2024 7:44 AM EST Krystal Parker MD POINT OF CARE TEST O RDERABLES [facility] [place] [address] * (ABNORMAL) CBC (with Diff) (08/01/2024 4:18 AM EST) [facility] White Blood Cell 8.51 4.00 - [...] Immature Gran % 0.4 % 4:53 AM EST [facility] Immature Gran Absolute <0.04 0.00 - 0.04 x10(3)/mc L 08/01/2024 4:53 AM [facility] Blood VENOUS BLOOD SPECIMEN / Unknown Venipuncture / Unknown 08/01/2024 4:18 AM EST 08/01/2024 4:29 AM EST Bridgette Stauffer MD HEMATOLOGY ORDERABLE S Performing Organization Address [facility] Co de Phone Number [facility] [place] [address] * Magnesium (08/01/2024 4:18 AM EST) Pathologist [facility] Magnesium 0.74 0.69 - 1.07 mMol/L 08/01/2024 5:00 AM [facility] Blood VENOUS BLOOD SPECIMEN / Unknown Venipuncture / Unknown 08/01/2024 4:18 AM EST 08/01/2024 4:29 AM EST Bridgette Stauffer MD CHEMISTRY ORDERABLES Performing Organization Address City/[facility] Co de Phone Number [facility] [place] [address] * (ABNORMAL) Basic Metabolic Panel (08/01/2024 4:18 AM EST) Pathologist [facility] Glucose 107 65 - 199 mg/dL 08/01/2024 [...] AM EST Bridgette Stauffer MD CHEMISTRY ORDERABLES [facility] [place] [address] * POC, GLUCOSE (07/31/2024 8:41 PM EST) Glucometer, POC 73 65 - 199 mg/dL 07/31/2024 8:41 PM EST [facility] Comment:Supplemental ranges: <140 mg/dL before meals <180 mg/dL all other times of the day. Blood CAPILLARY BLOOD / Unknown 07/31/2024 8:41 PM EST 07/31/2024 8:41 PM EST Krystal Parker MD POINT OF CARE TEST O RDERABLES Performing Organization Address [facility]/State/ZIP Co de Phone Number [facility] [place] [address] * CARDIAC CATHETERIZATION (07/31/2024 5:53 PM EST) Anatomical Region Laterality Modality Other Narrative 08/01/2024 12:37 PM EST ?[facility] ? Cardiac Catheterization/Intervention Report ? Patient Name: Korey Montoya Kyrie. ? Procedure Date: 07/31/2024 ? A #: [id number] ? Primary Physician: Janelle, Maldonado T ? Case #: [id number] ? File Name: [id number] ? Catheterization Order Number: [id number] ? [facility] ? Final Report [place], [place] ? Patient Name: ? Korey Montoya ?ID#: ?[id number] ? : ?1950 ? Procedure Date: ? July 31, 2024 ?Case #: ? [id number] ? Room: ? 1 ? Case Physician: ? Maldonado Luis MSofie ?Start: ?17:10 ? Admission: ??07/29/2024 ? Referring [...] ? Comments: ?Impella removed from the right BOWLING BALL ASSEMBLER with deployment of Perclose and ?Angioseal. ??Good [...] Procedure Note Maldonado Luis MD - 08/01/2024 [facility] Cardiac Catheterization/Intervention Report Patient Name: Korey Montoya Procedure Date: 07/31/2024 A #: [id number] Primary Physician: Maldonado Luis Case #: [id number] File Name: [id number] Catheterization Order Number: [id number] [facility] FinalReport [place], [place] Patient Name: Korey Montoya ID#:[id number] :1950 Procedure Date: July 31, 2024 Case [...] as ASA Class IV. The [facility] clinical frailtyscale is 4: Vulnerable. Diagnostic [...] procedures. Comments: Impella removed from the right BOWLING BALL ASSEMBLER with deployment of Perclose and Angioseal. Good [...] * POC, GLUCOSE (07/31/2024 11:04 AM EST) [facility] Glucometer, POC 82 65 - 199 mg/dL 07/31/2024 11:04 AM EST [facility] Comment:Supplemental ranges: <140 mg/dL before meals <180 mg/dL all other times of the day. Blood CAPILLARY BLOOD / Unknown 07/31/2024 11:04 AM EST 07/31/2024 11:04 AM EST Krystal Parker MD POINT OF CARE TEST O RDERABLES [facility] [place] [address] * (ABNORMAL) Blood Gas, Arterial POC (07/31/2024 [...] TEST O RDERABLES Performing Organization Address City/[facility]/ZIP Co de Phone Number [facility] [place] [address] * POC, GLUCOSE (07/31/2024 7:47 AM EST) [facility] Signature Glucometer, POC 82 65 - 199 mg/dL 07/31/2024 7:53 AM [facility] Comment:Supplemental ranges: <140 mg/dL before meals <180 mg/dL all other times of the day. Blood CAPILLARY BLOOD / Unknown 07/31/2024 7:47 AM EST 07/31/2024 7:53 AM EST Krystal Parker MD POINT OF CARE TEST O RDERABLES Performing Organization Address City/[facility]/ZIP Co de Phone Number [facility] [place] [address] * (ABNORMAL) CBC (with Diff) (07/31/2024 1:08 [...] EST Bridgette Stauffer MD HEMATOLOGY ORDERABLE S [facility] [place] [address] * Magnesium (07/31/2024 1:08 AM EST) Magnesium 0.89 0.69 - 1.07 mMol/L 07/31/2024 1:46 AM EST [facility] Blood VENOUS BLOOD SPECIMEN / Unknown Venipuncture / Unknown 07/31/2024 1:08 AM EST 07/31/2024 1:18 AM EST Bridgette Stauffer MD CHEMISTRY ORDERABLES [facility] [address] [place] [address] * (ABNORMAL) Basic Metabolic Panel (07/31/2024 1:08 AM EST) Pathologist [facility] Glucose 97 65 - 199 mg/dL 07/31/2024 1:46 AM EST [facility] Comment:Glucose Concentratio n >=200 mg/dL plus symptoms is consistent with Diabetes Mellitus. Blood Urea Nitrogen 11 10 - 20 mg/dL 07/31/2024 1:46 AM [facility] Creatinine 0.96 0.80 - 1.50 mg/dL 07/31/2024 1:46 AM EST [facility] Sodium 140 135 - 145 mMol/L 07/31/2024 1:46 AM [facility] Potassium 4.1 3.5 - 5.0 mMol/L 07/31/2024 1:46 AM [facility] Chloride 110(H) 98 - 107 mMol/L 07/31/2024 1:46 AM [facility] Carbon Dioxide 24 22 - 31 mMol/L 07/31/2024 1:46 AM [facility] Anion Gap 6 5 - 15 mMol/L 07/31/2024 1:46 AM [facility] [...] AM EST Bridgette Stauffer MD CHEMISTRY ORDERABLES [facility] [place] [address] * (ABNORMAL) Hepatic Function Panel (07/31/2024 1:08 AM EST) Albumin 3.1(L) 3.2 - 5.2 g/dL 07/31/2024 1:46 AM [facility] Aspartate Aminotransferase 192(H) <=39 unit/L [...] Parker MD CHEMISTRY ORDERABLES Performing Organization Address [facility]/ZIP Co de Phone Number [facility] [place] [address] * POC, GLUCOSE (07/30/2024 8:03 PM EST) Glucometer, POC 86 65 - 199 mg/dL 07/30/2024 8:03 PM EST [facility] Comment:Supplemental ranges: <140 mg/dL before meals <180 mg/dL all other times of the day. Blood CAPILLARY BLOOD / Unknown 07/30/2024 8:03 PM EST 07/30/2024 8:03 PM EST Krystal Parker MD POINT OF CARE TEST O RDERABLES Performing Organization Address [facility]/ZIP Co de Phone Number [facility] [place] [address] * Potassium (07/30/2024 8:03 PM EST) Pathologist [facility] Potassium 3.8 3.5 - 5.0 mMol/L 07/30/2024 9:13 PM EST [facility] Blood VENOUS BLOOD SPECIMEN / Unknown Venipuncture / Unknown 07/30/2024 8:03 PM EST 07/30/2024 8:22 PM EST Aubree Silverio MD CHEMISTRY ORDERABL ES Performing Organization Address City/[facility]/ZIP Co de Phone Number [facility] [place] [address] * POC, GLUCOSE (07/30/2024 6:23 PM EST) Glucometer, POC 93 65 - 199 mg/dL 07/30/2024 6:24 PM EST [facility] Comment:Supplemental ranges: <140 mg/dL before meals <180 mg/dL all other times of the day. Blood CAPILLARY BLOOD / Unknown 07/30/2024 6:23 PM EST 07/30/2024 6:24 PM EST Krystal Parker MD POINT OF CARE TEST O RDERABLES Performing Organization Address [facility] Co de Phone Number [facility] [place] [address] * POC, GLUCOSE (07/30/2024 5:08 PM EST) Glucometer, POC 78 65 - 199 mg/dL 07/30/2024 5:08 PM EST [facility] Comment:Supplemental ranges: <140 mg/dL before meals <180 mg/dL all other times of the day. Blood CAPILLARY BLOOD / Unknown 07/30/2024 5:08 PM EST 07/30/2024 5:08 PM EST Krystal Parker MD POINT OF CARE TEST O JOSH Performing Organization Address [facility] Co de Phone Number [facility] [place] [address] * (ABNORMAL) Phosphorus (07/30/2024 3:08 PM EST) Phosphorus 2.1(L) 2.5 - 4.5 mg/dL 07/30/2024 3:58 PM EST [facility] Blood VENOUS BLOOD SPECIMEN / Unknown Venipuncture / Unknown 07/30/2024 3:08 PM EST 07/30/2024 3:12 PM EST Aubree Silverio MD CHEMISTRY ORDERABL ES Performing Organization Address [facility] Co de Phone Number [facility] [place] [address] * Magnesium (07/30/2024 3:08 PM EST) Magnesium 0.90 0.69 - 1.07 mMol/L 07/30/2024 3:58 PM [facility] Blood VENOUS BLOOD SPECIMEN / Unknown Venipuncture / Unknown 07/30/2024 3:08 PM EST 07/30/2024 3:12 PM EST Aubree Silverio MD CHEMISTRY ORDERABL ES [facility] [place] [address] * (ABNORMAL) Basic Metabolic Panel (07/30/2024 3:08 [...] EST Aubree Silverio MD CHEMISTRY ORDERABL ES [facility] [place] [address] * ECHO LMTD W CONTRAST W LMTD SPEC DOPP COLOR DOPP (07/30/2024 11:42 AM EST) Anatomical Region Laterality Modality Cardiac Other 07/30/2024 10:2 2 AM EST Narrative 07/30/2024 12:34 PM [place] [address] [place] [address] ? Echocardiogram Report Name: KOREY MONTOYA ? Study Date: 07/30/2024 10:22 AMBP: 124/66 mmHg : 1950 ? Height: 168 cm ? Account: [id number] Age: 74 yrs ? Weight: 65 kg Gender: Male ?BSA: 1.7 m2 Ordering Physician: Aubree Silverio MD Referring Physician: CHAPARRO FERRERA Performed By: OMERO Millan Reason For Study: ST elevation myocardial infarction involving left anterior descending (LAD) coronary artery Interpreting Fellow: Ivan Hernandez. Exam Location: [facility]. Interpretation Summary Left ventricle is severely [...] Compared to the overnight study by the secondary history teacher fellow the impella position is stable. 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 Procedure Limited - 54826. Image enhancement Definity was used for both [...] Note Kathleen Banda MD - 07/30/2024 [address] [place] [address] Echocardiogram Report Name: KOREY MONTOYA Study Date: 0:22 AMBP: 124/66 mmHg : 1950 Height: 168 cm Account: [id number] Age: 74 yrs Weight: 65 kg Gender: Male BSA: 1.7 m2 Ordering Physician: Aubree Silverio MD Referring Physician: CHAPARRO FERRERA Performed By: OMERO Millan Reason For Study: ST elevation myocardial infarction involving leftanterior descending (LAD) coronary artery Interpreting Fellow: Ivan Hernandez. Exam Location: [facility]. Interpretation Summary Left ventricle is severely [...] Compared to the overnight study by the secondary history teacher fellow the impella positionis stable. The global left ventricular systolic function has improvedpredominantly via recruitment outside the LAD territory which remains akinetic. Procedure Limited - 01295. Image enhancement Definity was used for both [...] - 199 mg/dL 07/30/2024 11:17 AM EST [facility] Comment:Supplemental ranges: <140 mg/dL before meals <180 mg/dL all other times of the day. Blood CAPILLARY BLOOD / Unknown 07/30/2024 11:17 AM EST 07/30/2024 11:17 AM EST Aubree Silverio MD POINT OF CARE TEST ORDERABLES [facility] [place] [address] * (ABNORMAL) Blood Gas, Arterial POC (07/30/2024 [...] - 145 mmol/L 07/30/2024 8:17 AM EST [facility] Potassium, Arterial 3.9 3.5 [...] Silverio MD POINT OF CARE TEST ORDERABLES [facility] [place] [address] * (ABNORMAL) Troponin - Single (07/30/2024 8:09 [...] troponin value can be found in the [facility] Test Catalog Troponin - [email or web address].org/catalogs/565/files/[email or web address] Reference: Fourth [place] Definition of Myocardial Infarction. Journal of the [place] [employer] 2018;72:3535-9972 Blood VENOUS BLOOD SPECIMEN / Unknown Venipuncture / Unknown 07/30/2024 8:09 AM EST 07/30/2024 8:26 AM EST uAbree Silverio MD CHEMISTRY ORDERABL ES Performing Organization Address [facility] Co de Phone Number [facility] [place] [address] * POC, GLUCOSE (07/30/2024 7:40 AM EST) [facility] Glucometer, POC 111 65 - 199 mg/dL 07/30/2024 7:40 AM EST [facility] Comment:Supplemental ranges: <140 mg/dL before meals <180 mg/dL all other times of the day. Blood CAPILLARY BLOOD / Unknown 07/30/2024 7:40 AM EST 07/30/2024 7:40 AM EST Aubree Silverio MD POINT OF CARE TEST ORDERABLES Performing Organization Address City/[facility]/ZIP Co de Phone Number [facility] [place] [address] * (ABNORMAL) CBC (with Diff) (07/30/2024 2:11 AM EST) White Blood Cell 11.25(H) 4.00 - 9.50 x10(3)/mc L 07/30/2024 2:33 AM EST [facility] Red Blood Cell 4.50(L) [...] - 3.20 x10(3)/mc L 07/30/2024 2:33 AM [facility] Monocyte % 5.4 % 07/30/2024 2:33 AM [facility] Monocyte Absolute 0.61 0.30 - 0.90 x10(3)/mc L 07/30/2024 2:33 AM EST [facility] Eos % 0.0 % [...] EST Bridgette Stauffer MD HEMATOLOGY ORDERABLE S [facility] [place] [address] * Magnesium (07/30/2024 2:11 AM EST) Magnesium 1.01 0.69 - 1.07 mMol/L 07/30/2024 2:51 AM [facility] Blood VENOUS BLOOD SPECIMEN / Unknown Venipuncture / Unknown 07/30/2024 2:11 AM EST 07/30/2024 2:22 AM EST Bridgette Stauffer MD CHEMISTRY ORDERABLES [facility] [place] [address] * (ABNORMAL) Basic Metabolic Panel (07/30/2024 2:11 [...] MD CHEMISTRY ORDERABLES Performing Organization Address City/[facility]/ZIP Co de Phone Number [facility] [place] [address] * (ABNORMAL) Cooximetry, POC (07/30/2024 1:00 AM EST) pO2, Coox 28 mmHg 07/30/2024 1:03 AM [facility] Hemoglobin, Coox 12.7(L) 13.7 - 16.5 g/dL 07/30/2024 1:03 AM EST [facility] Oxyhemoglobin, Coox 54.9 % 07/30/2024 1:03 AM EST [facility] Carboxyhemoglo bin, Coox 1.0 % 07/30/2024 1:03 AM EST [facility] Comment: Nonsmokers: 0.5-1.5% COHB ?? Smokers: Variable ??but usually less than 10% ?? Toxic: 20-30% COHB ?? Lethal: Greater than 60% COHB Methemoglobin, Coox 0.0 <=1.5 % 07/30/2024 1:03 AM EST [facility] Blood (Mixed Venous) 07/30/2024 1:00 AM EST 07/30/2024 1:03 AM EST Aubree Silverio MD POINT OF CARE TEST ORDERABLES Performing Organization Address [facility] Co de Phone Number [facility] [place] [address] * (ABNORMAL) Blood Gas, Arterial POC (07/30/2024 [...] Rate 2.0 L/min 07/30/2024 12:58 AM EST [facility] IONIZED CALCIUM, ARTERIAL 1.12(L) 1.15 - 1.33 mmol/L 07/30/2024 12:58 AM EST [facility] Glucose, Arterial 184 65 - 199 mg/dL 07/30/2024 12:58 AM EST [facility] Comment:Glucose Concentratio n >=200 mg/dL plus symptoms is consistent with Diabetes Mellitus. Blood ARTERIAL BLOOD / Unknown 07/30/2024 12:57 AM EST 07/30/2024 12:58 AM EST Aubree Silverio MD POINT OF CARE TEST ORDERABLES [facility] [place] [address] * (ABNORMAL) Troponin - Single (07/29/2024 10:31 PM EST) Pathologist [facility] Troponin-T, High Sensitivity >10,000(H ) <=22 ng/L 07/29/2024 11:03 PM EST [facility] [...] troponin value can be found in the [facility] Test Catalog Troponin - https://one-.testcatalog.org/catalogs/565/files/18383 Reference: Fourth [place] Definition of Myocardial Infarction. Journal of the [place] College [employer]iology 2018;72:9060-0858 Blood VENOUS BLOOD SPECIMEN / Unknown Venipuncture / Unknown 07/29/2024 10:31 PM EST 07/29/2024 10:36 PM EST Yrn Velazquez MD CHEMISTRY ORDERABL ES Performing Organization Address City/[facility]/ZIP Co de Phone Number [facility] [place] [address] * Potassium (07/29/2024 8:11 PM EST) Potassium 4.1 3.5 - 5.0 mMol/L 07/29/2024 8:52 PM EST [facility] Blood VENOUS BLOOD SPECIMEN / Unknown Venipuncture / Unknown 07/29/2024 8:11 PM EST 07/29/2024 8:16 PM EST Aubree Silverio MD CHEMISTRY ORDERABL ES Performing Organization Address [facility]/ZIP Co de Phone Number [facility] [place] [address] * (ABNORMAL) Troponin - Single (07/29/2024 8:11 PM EST) Troponin-T, High Sensitivity >10,000(H ) <=22 ng/L 07/29/2024 8:52 PM EST [facility] [...] troponin value can be found in the [facility] Test Catalog Troponin - https://one-.testcatalog.org/catalogs/565/files/19959 Reference: Fourth [place] Definition of Myocardial Infarction. Journal of the [place] College of Cardiology 2018;72:7818-4125 Blood VENOUS BLOOD SPECIMEN / Unknown Venipuncture / Unknown 07/29/2024 8:11 PM EST 07/29/2024 8:16 PM EST Aubree Silverio MD CHEMISTRY ORDERABL ES Performing Organization Address City/[facility]/ZIP Co de Phone Number [facility] [place] [address] * (ABNORMAL) Phosphorus (07/29/2024 8:11 PM EST) Phosphorus 2.1(L) 2.5 - 4.5 mg/dL 07/29/2024 8:52 PM EST [facility] Blood VENOUS BLOOD SPECIMEN / Unknown Venipuncture / Unknown 07/29/2024 8:11 PM EST 07/29/2024 8:16 PM EST Aubree Silverio MD CHEMISTRY ORDERABL ES Performing Organization Address City/[facility]/ZIP Co de Phone Number [facility] [place] [address] * POC, GLUCOSE (07/29/2024 8:09 PM EST) Glucometer, POC 142 65 - 199 mg/dL 07/29/2024 8:09 PM EST [facility] Comment:Supplemental ranges: <140 mg/dL before meals <180 mg/dL all other times of the day. Blood CAPILLARY BLOOD / Unknown 07/29/2024 8:09 PM EST 07/29/2024 8:09 PM EST Aubree Silverio MD POINT OF CARE TEST ORDERABLES Performing Organization Address City/[facility]/ZIP Co de Phone Number [facility] [place] [address] * ABORH RECHECK (07/29/2024 6:43 PM EST) Pathologist [facility] ABORH Recheck AB POSITIVE 07/29/2024 10:13 PM EST [facility] Blood VENOUS BLOOD SPECIMEN / Unknown Venipuncture / Unknown 07/29/2024 6:43 PM EST 07/29/2024 7:15 PM EST Aubree Silverio MD BLOOD BANK LAB ORD ERABLES Performing Organization Address City/[facility] Co de Phone Number [facility] [place] [place] [address] * POC, GLUCOSE (07/29/2024 5:57 PM EST) [facility] Glucometer, POC 166 65 - 199 mg/dL 07/29/2024 5:57 PM EST [facility] Comment:Supplemental ranges: <140 mg/dL before meals <180 mg/dL all other times of the day. Blood CAPILLARY BLOOD / Unknown 07/29/2024 5:57 PM EST 07/29/2024 5:57 PM EST Aubree Silverio MD POINT OF CARE TEST ORDERABLES Performing Organization Address City/[facility]/ZIP Co de Phone Number [facility] [place] [address] * Type and screen ([facility]CGP/MAGALIE) (07/29/2024 5:56 PM EST) ABORH Type AB POSITIVE 07/29/2024 9:44 PM EST [facility] PATIENT HISTORY Not Found 07/29/2024 9:44 PM EST [facility] Expires at [id number] on: 08/01/2024 07/29/2024 9:44 PM EST [facility] ANTIBODY SCREEN AUTOMATED Negative 07/29/2024 9:44 PM EST [facility] T&S only valid at [facility] 07/29/2024 9:44 PM EST [facility] Blood VENOUS BLOOD SPECIMEN / Unknown Venipuncture / Unknown 07/29/2024 5:56 PM EST 07/29/2024 6:07 PM EST Narrative [facility] - 07/29/2024 9:44 PM EST This Type and Screen result is only valid at the [facility] Aubree Silverio MD BLOOD BANK LAB ORD ERABLES [facility] [place] [address] * (ABNORMAL) Troponin - Single (07/29/2024 4:52 PM EST) [facility] Troponin-T, High Sensitivity >10,000(H ) <=22 ng/L 07/29/2024 5:25 PM EST [facility] [...] troponin value can be found in the [facility] Test Catalog Troponin - https://[facility]-.testcatalog.org/catalogs/565/files/20079 Reference: Fourth [place] Definition of Myocardial Infarction. Journal of the [place] College of Cardiology 2018;72:0029-9463 Blood VENOUS BLOOD SPECIMEN / Unknown Venipuncture / Unknown 07/29/2024 4:52 PM EST 07/29/2024 4:57 PM EST Aubree Silverio MD CHEMISTRY ORDERABL ES [facility] [place] [address] * EKG 12 Lead (07/29/2024 4:21 PM EST) Ventricular rate 72 BPM MUSE SYSTEM Atrial Rate 72 BPM MUSE SYSTEM P-R Interval 168 ms MUSE SYSTEM QRS Duration 82 ms MUSE SYSTEM Q-T Interval 392 ms MUSE SYSTEM QTC Calculated (Bezet) 429 ms MUSE SYSTEM Calculated P [place] 71 degrees MUSE SYSTEM Calculated R [place] 77 degrees MUSE SYSTEM Calculated T [place] 28 degrees MUSE SYSTEM INTERPRETATION Sinus rhythm [...] Silverio MD ECG ORDERABLES Performing Organization Address [facility] Co de Phone Number MUSE SYSTEM * (ABNORMAL) Blood Gas, Arterial POC (07/29/2024 4:21 PM EST) pH, Arterial 7.37 7.35 - 7.45 07/29/2024 4:22 PM EST [facility] PCO2, Arterial 36 35 - 45 mmHg 07/29/2024 4:22 PM EST [facility] PO2, Arterial 71(L) 85 - 104 mmHg 07/29/2024 4:22 PM EST [facility] Bicarbonate, Arterial 20.4 20.0 - 26.0 mmol/L 07/29/2024 4:22 PM EST [facility] Base Excess, Arterial -4.8(L) [...] OF CARE TEST ORDERABLES Performing Organization Address City/[facility]/ZIP Co de Phone Number [facility] [place] [address] * POC, GLUCOSE (07/29/2024 4:19 PM EST) Glucometer, POC 185 65 - 199 mg/dL 07/29/2024 4:19 PM EST [facility] Comment:Supplemental ranges: <140 mg/dL before meals <180 mg/dL all other times of the day. Blood CAPILLARY BLOOD / Unknown 07/29/2024 4:19 PM EST 07/29/2024 4:19 PM EST Aubree Silverio MD POINT OF CARE TEST ORDERABLES Performing Organization Address City/[facility]/ZIP Co de Phone Number [facility] [place] [address] * Blood culture (07/29/2024 4:08 PM EST) Blood Culture No growth at 120 hours 08/03/2024 5:01 PM EST [facility] Blood VENOUS BLOOD SPECIMEN / Unknown Venipuncture / Unknown 07/29/2024 4:08 PM EST 07/29/2024 4:15 PM EST Aubree Silverio MD MICROBIOLOGY - BLO OD ORDERABLES [facility] [place] [address] * Blood culture (07/29/2024 4:08 PM EST) Blood Culture No growth at 120 hours 08/03/2024 5:01 PM EST [facility] Blood VENOUS BLOOD SPECIMEN / Unknown Venipuncture / Unknown 07/29/2024 4:08 PM EST 07/29/2024 4:26 PM EST Aubree Silverio MD MICROBIOLOGY - BLO OD ORDERABLES [facility] [place] [address] * XR Chest One View (07/29/2024 2:30 PM EST) WORKSTATION ID [id number] RAD Anatomical Region Laterality Modality Chest N/A [...] who have questions please contact the health foster care case manager that requested your imaging first. ? Electronically signed by: Chris Candelaria MD, [facility] ([phone]), at 07/29/2024 3:21 PM Narrative 07/29/2024 3:21 [...] patients who have questions please contactthe health foster care case manager that requested your imaging first. Electronically signed by: Chris Candelaria MD, [facility]([phone]), at 07/29/2024 3:21 PM Vahe Marvin MD IMG DX ORDERABLES * (ABNORMAL) APTT (07/29/2024 2:03 PM EST) [facility] Partial Thromboplastin Time >160(HHH) 25 - 37 sec 07/29/2024 2:56 PM EST [facility] Blood VENOUS BLOOD SPECIMEN / Unknown Venipuncture / Unknown 07/29/2024 2:03 PM EST 07/29/2024 2:13 PM EST Vahe Marvin MD HEMATOLOGY ORDERABLE S [facility] [place] [address] * (ABNORMAL) Prothrombin Time (07/29/2024 2:03 PM EST) [facility] Prothrombin Time 14.2(H) 9.4 - 12.5 sec [...] HEMATOLOGY ORDERABLE S Performing Organization Address City/[facility]/ZIP Co de Phone Number [facility] [place] [address] * CRP, acute inflammation (07/29/2024 2:03 PM EST) C-Reactive Protein <3.0 <=4.9 mg/L 07/29/2024 2:52 PM EST [facility] Blood VENOUS BLOOD SPECIMEN / Unknown Venipuncture / Unknown 07/29/2024 2:03 PM EST 07/29/2024 2:14 PM EST Vahe Marvin MD CHEMISTRY ORDERABLES Performing Organization Address City/[facility]/ZIP Co de Phone Number [facility] [place] [address] * Lipid Panel (Reflex Direct LDL) (07/29/2024 2:03 PM EST) Cholesterol, Total 133 mg/dL 07/29/2024 2:52 PM EST [facility] Comment: Desirable: < 200 mg/dL Borderline High: 200 - 239 mg/dL High: > or = 240 mg/dL Triglyceride 45 mg/dL 07/29/2024 2:52 PM EST [facility] Comment: Normal: <150 mg/dL Borderline High: 150-199 mg/dL High: 200-499 mg/dL Very High: > or =500 mg/dL HDL Cholesterol 58 mg/dL 2:52 PM [facility] Comment:Males: High Risk: <4 0 mg/dL LDL Cholesterol 64 mg/dL 4 2:52 PM [facility] [...] 2:03 PM EST 07/29/2024 2:14 PM EST [facility] - 07/29/2024 2:52 [...] ACC/AHA Guidelines (most recently Rolf et al. [facility] 06/15/22): * For individuals with [...] MD CHEMISTRY ORDERABLES Performing Organization Address City/[facility]/ZIP Co de Phone Number [facility] [place] [address] * TSH [place] (07/29/2024 2:03 PM EST) [facility] Thyroid Stimulating Hormone 0.70 0.27 - 4.20 mcIU/mL 07/29/2024 2:52 PM EST [facility] Blood VENOUS BLOOD SPECIMEN / Unknown Venipuncture / Unknown 07/29/2024 2:03 PM EST 07/29/2024 2:14 PM EST Vahe Marvin MD CHEMISTRY ORDERABLES Performing Organization Address City/[facility]/ZIP Co de Phone Number [facility] [place] [address] * Hemoglobin A1c (07/29/2024 2:03 PM EST) [...] red blood cell turnover may not be mill representative of glycemic control. Reference Interval: 4.3 [...] 2:03 PM EST 07/29/2024 2:14 PM EST [facility] - 07/29/2024 2:41 PM EST Estimated average glucose (eAG) is calculated from the equation described in: Quinten DM, Rikki J, Reno R, et al. ??Translating the A1C assay into estimated average glucose values. ??Diabetes Care 2008:31(8):9398-4845. Additional resources are available on the ADA website (diabetes.org). Vahe Marvin MD CHEMISTRY ORDERABLES [facility] [place] [address] * (ABNORMAL) CBC (with Diff) (07/29/2024 2:03 PM EST) White Blood Cell 19.50(H) 4.00 - 9.50 x10(3)/mc L 07/29/2024 2:18 PM EST [facility] Red Blood Cell 4.81 [...] 3.20 x10(3)/mc L 07/29/2024 2:18 PM EST [facility] Monocyte % 2.9 % 07/29/2024 2:18 PM EST [facility] Monocyte Absolute 0.56 0.30 - 0.90 x10(3)/mc L 07/29/2024 2:18 PM EST [facility] Eos % 0.0 % 07/29/2024 2:18 PM EST [facility] Eos Absolute <0.04 0.00 - 0.40 x10(3)/mc L 07/29/2024 2:18 PM EST [facility] Basophil % 0.3 % 07/29/2024 2:18 PM EST [facility] Baso Absolute 0.05 0.00 - 0.10 x10(3)/mc L 07/29/2024 2:18 PM EST [facility] Immature Gran % 0.5 % 2:18 PM [facility] Immature Gran Absolute 0.09(H) 0.00 - 0.04 x10(3)/mc L 07/29/2024 2:18 PM EST [facility] Blood VENOUS BLOOD SPECIMEN / Unknown Venipuncture / Unknown 07/29/2024 2:03 PM EST 07/29/2024 2:13 PM EST Vahe Marvin MD HEMATOLOGY ORDERABLE S [facility] [place] [address] * Phosphorus (07/29/2024 2:03 PM EST) Phosphorus 2.5 2.5 - 4.5 mg/dL 07/29/2024 2:52 PM EST [facility] Blood VENOUS BLOOD SPECIMEN / Unknown Venipuncture / Unknown 07/29/2024 2:03 PM EST 07/29/2024 2:14 PM EST Vahe Marvin MD CHEMISTRY ORDERABLES [facility] [place] [address] * Magnesium (07/29/2024 2:03 PM EST) Magnesium 0.70 0.69 - 1.07 mMol/L 07/29/2024 2:52 PM EST [facility] Blood VENOUS BLOOD SPECIMEN / Unknown Venipuncture / Unknown 07/29/2024 2:03 PM EST 07/29/2024 2:14 PM EST Vahe Marvin MD CHEMISTRY ORDERABLES Performing Organization Address [facility]/ZIP Co de Phone Number [facility] [place] [address] * (ABNORMAL) Comprehensive metabolic panel (07/29/2024 2:03 PM EST) Pathologist [facility] Glucose 243(H) 65 - 199 mg/dL 07/29/2024 [...] - 10.5 mg/dL 07/29/2024 3:11 PM EST [facility] Protein, Total 6.0(L) 6.1 - 8.0 g/dL 07/29/2024 3:11 PM [facility] Albumin 3.6 3.2 - 5.2 g/dL 07/29/2024 3:11 PM [facility] Aspartate Aminotransferase 07/29/2024 3:11 PM EST [facility] Comment:Unable to report due [...] CHEMISTRY ORDERABLES [facility] [place] [address] * (ABNORMAL) Troponin - Single (07/29/2024 2:03 PM EST) [facility] Troponin-T, High Sensitivity >10,000(H ) <=22 ng/L 07/29/2024 2:52 PM EST [facility] troponin value can be found in the [facility] Test Catalog Troponin - https://[facility]-.testcatalog.org/catalogs/565/files/91247 Reference: Fourth [place] Definition of Myocardial Infarction. Journal of the [place] College of Cardiology 2018;72:1824-8914 Blood VENOUS BLOOD SPECIMEN / Unknown Venipuncture / Unknown 07/29/2024 2:03 PM EST 07/29/2024 2:14 PM EST Vahe Marvin MD CHEMISTRY ORDERABLES [facility] [place] [address] * (ABNORMAL) Blood Gas, Venous POC (07/29/2024 2:01 PM EST) [facility] pH, Venous 7.30(L) 7.32 - 7.42 07/29/2024 2:02 PM EST [facility] PCO2, Venous 42 38 - 58 mmHg 07/29/2024 2:02 PM EST [facility] PO2, Venous 39 16 [...] CARE TEST O RDERABLES Performing Organization Address [facility]/State/ZIP Co de Phone Number [facility] [place] [address] * CARDIAC CATHETERIZATION (07/29/2024 1:20 PM EST) Anatomical Region Laterality Modality Other Narrative 07/29/2024 2:02 PM EST ?[facility] ? Cardiac Catheterization/Intervention Report ? Patient Name: Korey Montoya Kyrie. ? Procedure Date: 07/29/2024 ? A #: [id number] ? Primary Physician: Vahe Marvin ? Case #: [id number] ? File Name: [id number] ? Catheterization Order Number: [id number] ? [facility] ? Final Report [place], [place] ? Patient Name: ? Korey Montoya ?ID#: ?[id number] ? : ?1950 ? Procedure Date: ? [...] on an emergent basis. ? History ?Korey Driss Montoya is a 74 year old man. [...] procedure was Emergent. The indication for ?the asphalt plant laborer visit is ACS less than or [...] 3.5 guiding catheter and a 3.5 Fr [place] [address] ??20 Mhz using ?Manual pullback. ??Imaging [...] ? A premounted 3.00 x 22 mm [place] (LOW) was deployed ? with a maximum [...] ??A premounted 3.00 x 08 mm [place]ison [place] (LOW) ? was deployed with a maximum [...] dose administered prior to arrival in the asphalt plant laborer. ?Recommended anti-platelet/anti-thrombotic regimen: ?Start aspirin 81 mg daily now and continue for 12 months then stop. ?Start clopidogrel 75 mg daily now and continue for indefinitely. ?These recommendations are made at the time of the intervention. Patient ?and provider preferences or a changing clinical situation may require ?modification of this regimen. Consult [facility] Interventional Cardiology for ?questions. ?The 1 year [...] able ?to start weaning his inotropes/vasopressors. A Demorest Colette catheter was ?placed demonstrating improvement in his hemodynamics and the impella site ?was perclosed and hemostatic gauze was applied with excellent result. ?WIll transfer to the [facility] for further management. ?The attending physician was present for the entire procedure. ?Dr. Vahe Marvin M.D. was present during the moderate sedation ?intraservice time as documented by the sedation nurse. ??Case time = 01:26. ?Dr. Vahe Marvin M.D. performed the coronary angiography, left heart ?catheterization, IVUS # coronary, stent insertion-coronary, oximetry, ABG, ?transthoracic echo , ventricular assist device insertion, right heart ?catheterization, Demorest (flow directed cath) insertion, access site ?angiography, vascular ultrasound, venous line / sheath insert and vascular ?closure device. ? Vahe Quiñones Shavonne, M.D. ? Electronically Signed by: Vahe Cobosstein, M.D. ? Report Finalized: 07/29/2024 ??13:55 ? Report Last Ammended: 07/30/2024 ??10:15 ? Procedure Note Vahe Marvin MD - 07/30/2024 [facility] Cardiac Catheterization/Intervention Report Patient Name: Korey Montoya Procedure Date: 07/29/2024 A #: [id number] Primary Physician: Vahe Marvin Case #: [id number] File Name: [id number] Catheterization Order Number: [id number] [facility] FinalReport [place], [place] Patient Name: Korey Montoya ID#:[id number] :1950 Procedure Date: July 29, 2024 Case [...] was designated as ASA Class IV. The [facility] frailty scale is 4: Vulnerable. Diagnostic Tests: Electrocardiography: EKG was assessed by ECG. EKG was Abnormal. EKG showed STDeviation >= 0.5 mm. Medications Prior to Procedure: Angiotensin II Receptor Elvis and Statin. Indications for Diagnostic Cath: The priority of the diagnostic procedure was Emergent. Theindication for the asphalt plant laborer visit is ACS less than or [...] 3.5 guiding catheter and a 3.5 Fr [place] [address] 20 Mhzusing Manual pullback. Imaging was [...] The priority for the procedure was Emergent.The [facility] indication for the procedure [...] The lesion was predilated with a 2.00mm [id number] MM balloon with a maximum inflation pressure of 12atmospheres. A premounted 3.00 x 22 mm [place] (LOW) wasdeployed with a maximum inflation pressure [...] A premounted 3.00 x 08 mm Jeison [place](LOW) was deployed with a maximum inflation pressure [...] dose administered prior to arrival in the asphalt plant laborer. Recommended anti-platelet/anti-thrombotic regimen: Start aspirin 81 mg daily now and continue for 12 months then stop. Start clopidogrel 75 mg daily now and continue for indefinitely. These recommendations are made at the time of the intervention.Patient and provider preferences or a changing clinical situation mayrequire modification of this regimen. Consult [facility] Inter[facility] [place]iology[place] questions. The 1 year bleeding [...] wereable to start weaning his inotropes/vasopressors. A Demorest Colette catheterwas placed demonstrating improvement in his hemodynamics and the impellasite was perclosed and hemostatic gauze was applied with excellentresult. WIll transfer to the CV for further management. The attending physician was present for the entire procedure. Dr. Vahe Marvin M.D. was present during the moderate sedation intraservice time as documented by the sedation nurse. Case time =01:26. Dr. Vahe Marvin M.D. performed the coronary angiography, leftheart catheterization, IVUS # coronary, stent insertion-coronary, oximetry,ABG, transthoracic echo , ventricular assist device insertion, right heart catheterization, Demorest (flow directed cath) insertion, access site angiography, [...] O RDERABLES [facility] [place] [address] * (ABNORMAL) BLOOD GAS, POC (07/29/2024 12:12 [...] CARE TEST O RDERABLES Performing Organization Address City/State/[facility] Co de Phone Number [facility] [place] [phone] documented in this encounter Visit Diagnoses Not [...] mg, Oral, EVERY EVENING, First dose on 07/29/24 at 1700, Until Discontinued, Routine Given 08/04/2024 [...] Wisdom RN) 2202 (Given - Provider: France Guererro, RENEA) losartan (Cozaar) tablet 25 mg 25 [...] 0934 (Given - Provider: Tonya Watson, RENEA) tamsulosin (Flomax) capsule 0.4 mg 0.4 mg, [...] Routine documented in this encounter Care Teams Irradiated Fuel Handler Relationship Specialty Start Date End Date Yoel Artis APRN [address] [place] [address] PCP - General Internal Medicine 11/18/22 07/29/24 documented as of this encounter
--- OUTSIDE RECORDS SUMMARY | 2024-09-19 11:35 | XMS_ITS | Encounter Summary ---
Author [place] [address] Care Team Providers Care Canvas Goods Maker Name Role Phone Yoel Artis Ute ALCALA Primary Care Provider [phone] Encounter Details Date Type Department Care Team (Late st Contact Info) Description 07/28/2024 Interpretation Only [address] [phone] Quinten Coffey MD [address] [place] [address] Social History Tobacco Use Types Packs/Day Years [...] AM EST Office Visit Cardiology at [address] [phone] Mushtaq Murphy APRN documented as of this encounter Procedures Procedure Name Priority Date/Time Associated Diagnosis Comments XR CHEST ONE VIEW STAT 07/28/2024 10: 22 AM EST documented in this encounter Results * XR Chest One View (07/28/2024 10:22 AM EST) PT CLASS E RAD ADMITDTTM [id number] RAD PT RAD INFO [id number]^Alexx ^Quinten RAD EXAM DESC XCXR1^XR Chest 1 View^RIS RAD WORKSTATION ID [id number] [facility] Anatomical Region Laterality Modality Chest N/A Radiographic Farida ging 07/28/2024 10:2 2 AM EST Impressions 07/28/2024 11:18 AM EST Clear lungs. Thank you for letting us participate in the care of this patient. ??If you are a health care provider and have any questions regarding this report, please contact the number below. ??For patients who have questions please contact the health wild animal caretaker that requested your imaging first. ? [...] patients who have questions please contactthe health wild animal caretaker that requested your imaging first. Quinten Coffey MD IMG DX ORDERABLES documented in this encounter Visit Diagnoses Not on filedocumented in this encounter Care Teams Canvas Goods Maker Relationship Specialty Start Date End Date Yoel Artis APRN [address] [place] [id number] PCP - General Internal Medicine 11/18/22 07/29/24 documented as of this encounter
--- OUTSIDE RECORDS SUMMARY | 2024-09-19 11:35 | XMS_ITS | Encounter Summary ---
Author Organization [facility] Address [facility] [address] Care Team Providers Care Macaroni Press Operator Name Role Phone Yoel Artis Ute ALCALA Primary Care Provider [phone] Encounter Details Date Type Department Care Team (Late st Contact Info) Description 07/29/2024 Orders Only [place] [address] Susannah Watts PA [facility] [place] [address] Social History Tobacco Use Types Packs/Day Years Used Date Smoking Tobacco: Former Cigarettes Smokeless Tobacco: Never Alcohol Use Standard Drinks/Week Comments Not Currently 0 (1 standard drink = 0.6 oz pur e alcohol) [facility] Utilities Answer Date Recorded In the past 12 months has [employer], [employer], oil, or water [employer] threatened to shut off services in your [...] 10:00 AM EST Office Visit Cardiology at [facility] [address] [place] [phone] Mushtaq Murphy APRN documented as of this encounter Procedures Procedure Name Priority Date/Time Associated Diagnosis Comments ECHOCARDIOGRAM TRANSTHORACIC Routine 07/30/2024 1:41 AM EST documented in this encounter Results * Echocardiogram Transthoracic (07/30/2024 1:41 AM EST) Anatomical Region Laterality Modality Cardiac Other 07/30/2024 1:41 AM EST Narrative 07/30/2024 8:23 AM EST [address] [place] [address] ? Echocardiogram Report Name: KOREY BERMUDEZ ? Study Date: 07/30/2024 01:41 AM : 1950 ? Height: 168 cm Age: 74 yrs ? Weight: 5.9 kg Gender: Male ?BSA: 0.63 m2 Performed By: Beatris Ching MD Reason For Study: STEMI, [place] History: ASCVD, HTN, HLD Interpreting Fellow: Beatris Ching. Interpretation Summary This is a limited study performed by a fellow front desk host to evaluate for cardiogenic shock with impella [...] study available for comparison. Procedure Limited - 99863. Suboptimal quality. There is sinus bradycardia. Left [...] Procedure Note Kathleen Banda MD - 07/30/[address] [place] [address] Echocardiogram Report Name: BERMUDEZKOREY Study Date: 07/30/2024 01:41AM : 1950 Height: 168 cm Age: 74 yrs Weight: 5.9 kg Gender: Male BSA: 0.63 m2 Performed By: Beatris Ching MD Reason For Study: STEMI, VT History: ASCVD, HTN, HLD Interpreting Fellow: Beatris Ching. Interpretation Summary This is a limited study performed by a fellow front desk host to evaluate forcardiogenic shock with impella in. [...] study available for comparison. Procedure Limited - [id number]. Suboptimal quality. There is sinus bradycardia. Left [...] on filedocumented in this encounter Care Teams Macaroni Press Operator Relationship Specialty Start Date End Date Yoel Artis APRN [address] [place], [place] [id number] PCP - General Internal Medicine 11/18/22 07/29/24 documented as of this encounter
--- OUTSIDE RECORDS SUMMARY | 2024-09-19 11:35 | XMS_ITS | Encounter Summary ---
[place] [address] Care Team Providers Care Route Sales Delivery Driver Name Role Phone Alexia Mtz FREDRICK Primary Care Provider [phone] Reason for Visit * Auth/Cert (Routine) Specialty Diagnoses / Procedures Referred By Theodore muro Referred To Contact Diagnoses STEMI (ST elevation myocardial infarction) STEMI Procedures ER SUI Vahe Marvin MD [facility] [place] [address] [facility] Referral ID Status Reason Start Date Expiration Date Visits Re quested Visits Authorized [id number] 1 1 Encounter Details Date Type Department Care Team (Late st Contact Info) Description 07/31/2024 4:30 PM EST - 07/31/2024 5:30 PM EST Surgery [place] [address] Maldonado Luis MD [facility] [place] [address] CARDIAC CATHETERIZATION Social History Tobacco Use Types Packs/Day Years Used Date Smoking Tobacco: Former Cigarettes Smokeless Tobacco: Never Alcohol Use Standard Drinks/Week Comments Not Currently 0 (1 standard drink = 0.6 oz pur e alcohol) [facility] Utilities Answer Date Recorded In the past 12 months has [employer] electric, gas, oil, or water company threatened [...] any time in the past 12 m [facility], were you homeless or living in a detention (including now)? No 07/30/2024 DH IPV Inpatient [...] Korey Montoya Patient Age: 74 y.o. Language: Nigerien Race: White Ethnicity: Not nor Admit date: [...] please contact your inpatient physician through the [facility] Forest Resource Specialist . Issues afterhours and on weekends [...] EKG. Patient transferred via air ambulance to [facility] on 07/29 for [...] EKG. Was transferred via air ambulance to [facility] for further management [...] year. Access was via right DIRECTOR OF CONTRACTS and this sitewas clean, dry and intact [...] for Chest pain. Replaces: nitroGLYcerin 400 mcg/spray [place], Non-Aerosol 0.4 mg Quantity: 90 tablet Refills: [...] Refills: 0 STOPPED Medications nitroGLYcerin 400 mcg/spray [place], Non-Aerosol Commonly known as: NITROLINGUAL Replaced by: [...] of one year. After this time, your land surveying party chief will determine if you need to continue [...] away. Stay on the phone. The emergency glass rolling machine operator will tell you what to [...] appointments: During 8am-5pm Tuesday through Tuesday call [phone] to speak with a nurse in the cardiology clinic All other times call [phone] and ask to speak to the cardiology nurse practitioner subcontract manager. Follow up Appointments: PCP Alexia Mtz, OPERATOR [employer] [phone]. Please call to establish a follow up appointment within 1-2 weeks of discharge. Cardiology. Referral to heart failure has been sent. General Instructions None Future Appointments and Orders Future Orders Complete By Expires Referral to Cardiac Rehab [[id number] Custom] As directed Process Instructions: If no progress note charted, please enter Clinical details in comments. Scheduling Instructions: Questions: My question or request is: STEMI, PCI- cardiac rehab at [facility] Referral to Cardiology [REF12 [...] of one year. After this time, your land surveying party chief will determine if you need to continue [...] away. Stay on the phone. The emergency glass rolling machine operator will tell you what to [...] appointments: During 8am-5pm Tuesday through Tuesday call [phone] to speak with a nurse in the cardiology clinic All other times call [phone] and ask to speak to the cardiology nurse practitioner subcontract manager. Follow up Appointments: PCP Alexia Mtz, O[employer]ATOR [employer] [phone]. Please call to establish a follow up [...] EKG. Patient transferred via air ambulance to [facility] on 07/29 for LHC and LOW to LAD for 100% occlusion Social History: Pt lives with his in a 1 level home with 2 NAOMI. 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 He [...] Total time: 35 (tef) minutes Time IN/OUT: 4749-4082 ZAIDA DUBOSE PT Pager: [phone] Physical Therapy Inpatient Rehabilitation Department * Yrn Ward MD - 08/03/2024 10:38 AM EST CV HOSPITALIST 2 - [facility] DAILY PROGRESS NOTE Page [phone] to reach a provider 04/04 Admit Date: [...] 81.0* 81.2* 82.0* 82.1* 82.4* Recent Labs 08/03/2451508/02/2441908/01/24203808/01/2481908/01/2441707/31/2410707/30/24200207/30/248 07/30/2421007/29/24201007/29/24 1403 NA 137 139 -- -- [...] or before 29-JUL-2024) Lateral injury pattern ACUTE ND / STEMI Abnormal ECG When compared with [...] Compared to the overnight study by the subcontract manager fellow the impella position is stable. 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 [facility] 07/29/24 Conclusions: * One vessel coronary artery disease (LAD) * Mild pulmonary hypertension * Elevated pulmonary capillary wedge pressure * Successful stent insertion of the proximal LAD lesion * See Dual Antiplatelet (DAPT) Recommendations above * Successful impella placement for cardiogenic shock. Telemetry: I have personally reviewed and interpreted the telemetry from the last 24 hours. [facility] Assessment: ASSESSMENT: Korey Montoya is a 74 y.o. male w/ PMH of hypertension, HLD, and BPH who presents for chief concern of chest pain after being found to have ST elevations on EKG. Patient transferred via air ambulance to [facility] on 07/29 for C and LOW to LAD for 100% occlusion. [...] to be determined OT: PCP Alexia Mtz, OPERATOR [employer] [phone] * Zaida Dubose, PT - 08/02/2024 2:08 PM EST Physical Therapy Evaluation Patient profile: Korey Montoya is a 74 y.o. male w/ PMH of hypertension, HLD, and BPH who presents for chief concern of chest pain after being found to have ST elevations on EKG. Patient transferred via air ambulance to [facility] on 07/29 for LHC and LOW to LAD for 100% occlusion Social History: Pt lives with his in a 1 level home with 2 NAOMI. 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 He [...] Total time: 37 (eval) minutes Time IN/OUT: 5396-5009 ZAIDA DUBOSE, PT Pager: [phone] Physical Therapy Inpatient Rehabilitation Department * Gagan [...] EKG. Patient transferred via air ambulance to [facility] on 07/29 for [...] PCP: Alexia Mtz APRN PCP phone number: [phone] Date of Admission: 07/29/2024 ( Hospital Day 4 days ) Attending:Bridgette Stauffer MD ID: Korey Montoya is a 74 y.o. male w/ PMH of hypertension, HLD, and BPH on Hospital Day4 for chief concern of chest pain after being found to have ST elevations on EKG. Patient transferred via air ambulance to [facility] on 07/29 for [...] 07/29/24 1621 PHART 7.48* 7.44 7.38 7.37 HUQ4RIV 29* 29* 34* 36 PO2ART 71* 109* 141* 71* QUC6UZZ 20.6 19.4* 19.5* 20.4 VBG (Venous Blood Gas) Recent Labs 07/29/24 1401 PHVEN 7.30* PO2VEN 39 YPX4HGA 20.1* Mixed Venous Sat No results for input(s): F7RHHN8 in the last 168 hours. Objective: Vitals [...] 82.1* 82.4* 83.4 Recent Labs 08/02/2441908/01/24203808/01/2481908/01/2441707/31/2410707/30/24200207/30/24 1508 07/30/24 0211 07/29/24201007/29/24 1403 NA 139 [...] 07/29/24 1621 PHART 7.48* 7.44 7.38 7.37 KBP3ABX 29* 29* 34* 36 PO2ART 71* 109* 141* 71* MCE0ZKC 20.6 19.4* 19.5* 20.4 VBG (Venous Blood Gas) Recent Labs 07/29/24 1401 PHVEN 7.30* PO2VEN 39 XWP0MZF 20.1* Mixed Venous Sat No results for input(s): T0OAYQ6 in the last 168 hours. Microbiology: Microbiology Results (Last 30 days) Procedure Component Value Units Date/Time Blood culture [[id number]] Collected: 07/29/241607 Lab Status: Preliminary result Specimen: Blood, Venous Updated: 08/01/241700 Blood Culture No growth at 72 hours Blood culture [[id number]] Collected: 07/29/241607 Lab Status: Preliminary result Specimen: Blood, Venous Updated: 08/01/241700 Blood Culture No growth at 72 hours Imaging: Results for orders placed or performed during the hospital encounter of 07/29/24 XR Chest One View (Exam End: 07/29/2024 2:30 PM) Result Value WORKSTATION ID [id number] Impression 1. No pulmonary edema. 2. No [...] first. Electronically signed by: Chris Candelaria MD, [facility] ([phone]), at 07/29/2024 3:21 PM TTE ( 07/30/24) [...] Compared to the overnight study by the subcontract manager fellow the impella position is stable. [...] EKG. Patient transferred via air ambulance to [facility] on 07/29 for [...] Susannah Ornelas MD Internal Medicine, PGY-1 Cardiology, [facility] 08/02/24 12:45 PM CARDIOLOGY STAFF NOTE [...] today). Transfer to floor. Krystal Parker MD, [facility] [place] Staff Marine Engine Machinist Apprentice manager adult * Gagan Catherine MD - 08/01/2024 11:12 [...] EKG. Patient transferred via air ambulance to [facility] on 07/29 for LHC and LOW to LAD for 100% occlusion. TTE showed apical akinesis and inferior hypokinesis with EF 20%. RHC showed elevated filling pressures. Impella placed and P-level 6 at time of transfer to [facility]. CI initially 1.97, improved to 2.2 After impella. Received about 3 L of fluid during procedural course. Patient initially required norepinephrine 30, epinephrine 10, and vasopressin 0.04 for hemodynamic support, which was weaned upon arrival to [facility] to norepinephrine 20and levo 0.04 N [...] PCP: Alexia Mtz APRN PCP phone number: [phone] Date of Admission: 07/29/2024 ( Hospital Day 3 days ) Attending:Krystal Parker MD ID: Korey Montoya is a 74 y.o. male w/ PMH of hypertension, HLD, and BPH on Hospital Day3 for chief concern of chest pain after being found to have ST elevations on EKG. Patient transferred via air ambulance to [facility] on 07/29 for [...] 07/29/24 1621 PHART 7.48* 7.44 7.38 7.37 OIK3IQV 29* 29* 34* 36 PO2ART 71* 109* 141* 71* GTY5LPD 20.6 19.4* 19.5* 20.4 VBG (Venous Blood Gas) Recent Labs 07/29/24 1401 PHVEN 7.30* PO2VEN 39 WIK5NFJ 20.1* Mixed Venous Sat No results for input(s): K3IRTQ9 in the last 168 hours. PA Catheter #'s PA Catheter PAP (mmHg): 46/16 (08/01/24599) PAP (mean): 26 (08/01/24599) CO (l/min): 5.4 l/min (08/01/24 0410) CI (l/min/m2): 3.1 l/min/m2 (08/01/24 0410) SVR (dyne*sec)/cm2: 1042 (dyne*sec)/cm2 (08/01/24 0410) SVRI (dyne*sec)/cm2: 1782 (dyne*sec)/cm5 (08/01/24 0410) Stroke Volume (ml): 79 ml (08/01/24 0410) CVP (mmHg): 8 mmHg (08/01/24599) @8AM CVP [...] 07/29/24 07/29/24 1400 Phlebitis 0-->no symptoms 07/30/24 0600 Infiltration 0-->no symptoms 07/30/24 06 Site Signs/Symptoms [...] hours. Recent Labs 07/30/24 0809 07/29/24 2231 07/29/24 2011 TROPONINTHS 8,651* >10,000* >10,000* Recent Labs 07/29/24 [...] 07/29/24 1621 PHART 7.48* 7.44 7.38 7.37 VHW4XBP 29* 29* 34* 36 PO2ART 71* 109* 141* 71* QXP7OJU 20.6 19.4* 19.5* 20.4 VBG (Venous Blood Gas) Recent Labs 07/29/24 1401 PHVEN 7.30* PO2VEN 39 QGP4MVI 20.1* Mixed Venous Sat No results for input(s): V5ZVTF0 in the last 168 hours. Microbiology: Microbiology Results (Last 30 days) Procedure Component Value Units Date/Time Blood culture [[id number]] Collected: 07/29/24 160 Lab Status: Preliminary result Specimen: Blood, Venous Updated: 07/31/24 170 Blood Culture No growth at 48 hours Blood culture [[id number]] Collected: 07/29/24 1608 Lab Status: Preliminary result Specimen: Blood, Venous Updated: 07/31/24 1701 Blood Culture No growth at 48 hours Imaging: Results for orders placed or performed during the hospital encounter of 07/29/24 XR Chest One View (Exam End: 07/29/2024 2:30 PM) Result Value WORKSTATION ID [id number] Impression 1. No pulmonary edema. 2. No [...] first. Electronically signed by: Chris Candelaria MD, [facility] ([phone]), at 07/29/2024 3:21 PM TTE ( 07/30/24) [...] Compared to the overnight study by the subcontract manager fellow the impella position is stable. [...] EKG. Patient transferred via air ambulance to [facility] on 07/29 for [...] Susannah Ornelas MD Internal Medicine, PGY-1 Cardiology, [facility] 08/01/24 7:13 AM CARDIOLOGY STAFF NOTE [...] with him; questions answered. Krystal Parker MD, [facility], [facility] Staff Marine Engine Machinist Apprentice manager adult * Krystal Parker MD - 07/31/2024 1:06 [...] EKG. Patient transferred via air ambulance to [facility] on 07/29 for LHC and LOW to LAD for 100% occlusion. TTE showed apical akinesis and inferior hypokinesis with EF 20%. RHC showed elevated filling pressures. Impella placed and P-level 6 at time of transfer to [facility]. CI initially 1.97, improved to 2.2 After impella. Received about 3 L of fluid during procedural course. Patient initially required norepinephrine 30, epinephrine 10, and vasopressin 0.04 for hemodynamic support, which was weaned upon arrival to [facility] to norepinephrine 20and levo 0.04 N [...] PCP: Alexia Mtz APRN PCP phone number: [phone] Date of Admission: 07/29/2024 ( Hospital Day 2 days ) Attending:Krystal Parker MD ID: Korey Montoya is a 74 y.o. male w/ PMH of hypertension, HLD, and BPH on Hospital Day2 for chief concern of chest pain after being found to have ST elevations on EKG. Patient transferred via air ambulance to [facility] on 07/29 for [...] 0057 07/29/24 1621 PHART 7.44 7.38 7.37 QZB6RZU 29* 34* 36 PO2ART 109* 141* 71* WDA3FBY 19.4* 19.5* 20.4 VBG (Venous Blood Gas) Recent Labs 07/29/24 1401 PHVEN 7.30* PO2VEN 39 TOA5SAR 20.1* Mixed Venous Sat No results for input(s): R1RVLK7 in the last 168 hours. PA Catheter [...] 07/30/24599 Dressing Status Clean;Dry;Intact 11/18/24 0600 Dressing Change Due 08/05/24 07/29/24 1400 [...] 07/29/241999 Labs: Recent Labs 07/31/24 0108 07/30/24 0211 07/29/24 1403 07/29/24 1246 07/29/24 [...] 0057 07/29/24 1621 PHART 7.44 7.38 7.37 BMG1KXB 29* 34* 36 PO2ART 109* 141* 71* LEV6QVA 19.4* 19.5* 20.4 VBG (Venous Blood Gas) Recent Labs 07/29/24 1401 PHVEN 7.30* PO2VEN 39 YFD3RPP 20.1* Mixed Venous Sat No results for input(s): Z7RMYY8 in the last 168 hours. Microbiology: Microbiology Results (Last 30 days) Procedure Component Value Units Date/Time Blood culture [[id number]] Collected: 07/29/241607 Lab Status: Preliminary result Specimen: Blood, Venous Updated: 07/30/241700 Blood Culture No Growth at 18-24 hrs. Blood culture [[id number]] Collected: 07/29/241607 Lab Status: Preliminary result Specimen: Blood, Venous Updated: 07/30/241700 Blood Culture No Growth at 18-24 hrs. Imaging: Results for orders placed or performed during the hospital encounter of 07/29/24 XR Chest One View (Exam End: 07/29/2024 2:30 PM) Result Value WORKSTATION ID [id number] Impression 1. No pulmonary edema. 2. No [...] first. Electronically signed by: Chris Candelaria MD, [facility] ([phone]), at 07/29/2024 3:21 PM TTE ( 07/30/24) [...] Compared to the overnight study by the subcontract manager fellow the impella position is stable. [...] 0800) heparin (porcine) infusion 7 Units/kg/hr (07/31/24 0800) PRN Meds:.influenza vaccine (65 yrs +), acetaminophen, [...] EKG. Patient transferred via air ambulance to [facility] on 07/29 for [...] work to optimize volume status while continuing fkltcso-xylntw-ayioartbew therapies at this time. Obtain comprehensive TTE. [...] EKG. Patient transferred via air ambulance to [facility] on 07/29 for LHC and LOW to LAD for 100% occlusion. TTE showed apical akinesis and inferior hypokinesis with EF 20%. RHC showed elevated filling pressures. Impella placed and P-level 6 at time of transfer to [facility]. CI initially 1.97, improved to 2.2 After impella. Received about 3 L of fluid during procedural course. Patient initially required norepinephrine 30, epinephrine 10, and vasopressin 0.04 for hemodynamic support, which was weaned upon arrival to [facility] to norepinephrine 20and levo 0.04 N [...] PCP: Yoel Artis APRN PCP phone number: [phone] Date of Admission: 07/29/2024 ( Hospital Day 1 day ) Attending:Jay Silverio MD ID: Korey Montoya is a 74 y.o. male w/ PMH of hypertension, HLD, and BPH on Hospital Day1 for chief concern of chest pain after being found to have ST elevations on EKG. Patient transferred via air ambulance to [facility] on 07/29 for LHC and LOW to LAD for 100% occlusion. 24 Hour Events/Subjective: Yesterday: - Admitted to the [facility] - After his LHC, he demonstrated [...] 0057 07/29/24 1621 PHART 7.44 7.38 7.37 DTR6ODR 29* 34* 36 PO2ART 109* 141* 71* BKT5IHH 19.4* 19.5* 20.4 VBG (Venous Blood Gas) Recent Labs 07/29/24 1401 PHVEN 7.30* PO2VEN 39 BAE0XJY 20.1* Lactate ( Last 12 hours) 1.3 >> 1.2 Mixed Venous Sat No results for input(s): Y2NLPC0 in the last 168 hours. PA Catheter [...] 0057 07/29/24 1621 PHART 7.44 7.38 7.37 HTA7LJW 29* 34* 36 PO2ART 109* 141* 71* OSV5COS 19.4* 19.5* 20.4 VBG (Venous Blood Gas) Recent Labs 07/29/24 1401 PHVEN 7.30* PO2VEN 39 EZP4FRI 20.1* Mixed Venous Sat No results for input(s): B3ZXZN3 in the last 168 hours. Microbiology: Microbiology Results (Last 30 days) Procedure Component Value Units Date/Time Blood culture [[id number]] Collected: 07/29/24 1608 Lab Status: In process Specimen: Blood, Venous Updated: 07/29/24 162 Blood culture [[id number]] Collected: 07/29/24 1608 Lab Status: In process Specimen: Blood, Venous Updated: 07/29/24 1615 Imaging: Results for orders placed or performed during the hospital encounter of 07/29/24 XR Chest One View (Exam End: 07/29/2024 2:30 PM) Result Value WORKSTATION ID [id number] Impression 1. No pulmonary edema. 2. No [...] first. Electronically signed by: Chris Candelaria MD, [facility] ([phone]), at 07/29/2024 3:21 PM Medications Scheduled Meds: [...] EKG. Patient transferred via air ambulance to [facility] on 07/29 for [...] EKG. Patient transferred via air ambulance to [facility] on 07/29 for [...] EKG. Was transferred via air ambulance to [facility] for further management and [facility] demo nstrated 100% occlusion. No significant RCA, LMCA, or LCX disease. LOW placed in LAD with some residual distal disease meriting placement of overlapping distal stent. TTE showed apical akinesis and inferior hypokinesis with EF 20%. RHC showed elevated filling pressures. Impella placed and P-level 6 at time of transfer to [facility]. CI initially 1.97, improved to 2.2 After impella. Received about 3 L of fluid during procedural course. Patient initially required norepinephrine, epinephrine, and vasopressin for hemodynamic support, which was weaned upon arrival to [facility] to norepinephrine 20 and levo 0.04 [...] performed by Brandan Mcgovern MD [facility] ENDOSCOPY Significant Family History: Family History Problem [...] mouth. Past Week nitroGLYcerin (NITROLINGUAL) 400 mcg/spray [place], Non-Aerosol 1 spray to anus for proctalgia [...] 3.5 guiding catheter and a 3.5 Fr [place] [facility] [place] ST 20 Mhz using Manual pullback. Imaging [...] atmospheres. A premounted 3.00 x 22 mm [place] (LOW) was deployed with a maximum inflation [...] atmospheres. A premounted 3.00 x 08 mm [place] (LOW) was deployed with a maximum inflation [...] a limited study performed by a fellow subcontract manager to evaluate for cardiogenic shock with [...] Compared to the overnight study by the subcontract manager fellow the impella position is stable. [...] EKG. Patient transferred via air ambulance to [facility] on 07/29 for [...] PCP: Yoel Artis APRN PCP phone number: [phone] Date of Admission: 07/29/2024 ( Hospital Day 0 days ) Attending:Jay Silverio MD ID: Korey Montoya is a 74 y.o. male w/ PMH of hypertension, HLD, and BPH who presents for chief concern of chest pain after being found to have ST elevations on EKG. Patient transferred via air ambulance to [facility] on 07/29 for LHC and LOW to LAD for 100% occlusion. HPI: Korey Montoya is a 74 y.o. male w/ PMH of hypertension, HLD, and BPH who presents for chief concern of chest pain after being found to have ST elevations on EKG. Patient transferred via air ambulance to [facility] on 07/29 for [...] EKG. Was transferred via air ambulance to [facility] for further management [...] performed by Brandan Mcgovern MD [facility] ENDOSCOPY Family History Family History Problem Relation [...] Blood Gas) No results for input(s): PHART, AQK2PXT, PO2ART, LPR5RHK, LACTATEVEN, QMX3SVG, PFRATIOART2 in the last 168 hours. VBG (Venous Blood Gas) Recent Labs 07/29/24 1401 PHVEN 7.30* PO2VEN 39 UNR8JBR 20.1* Mixed Venous Sat No results for input(s): C6SVUF6 in the last 168 hours. PA Catheter [...] Blood Gas) No results for input(s): PHART, DLM0WPN, PO2ART, TOB7QWY, LACTATEVEN, TKA9TBM, PFRATIOART2 in the last 168 hours. VBG (Venous Blood Gas) Recent Labs 07/29/24 1401 PHVEN 7.30* PO2VEN 39 XKP7QCP 20.1* Mixed Venous Sat No results for input(s): E9PUGM6 in the last 168 hours. Microbiology: Microbiology [...] EKG. Patient transferred via air ambulance to [facility] on 07/29 for C. Found to have 100% occlusion of LAD for which he underwent LOW to LAD.Otherwise no other significant vessel disease. Fahad is currently hemodynamically tenuous but improving upon admission to [facility], requiring hemodynamic support with norepinephrine and vasopressin at time of admission along with mechanical support with Impella device. Reassuringly, he demonstrates decreasing pressor requirements since admission to [facility], with epinephrine completely weaned. He does [...] Bernardo Amos MD Internal Medicine, PGY-3 Cardiology, [facility] 07/29/24 3:14 PM Cardiology Attending Note [...] MD, FACP, FACC Section of Cardiovascular Medicine [facility] Hearing Care Professionalsound ranging crewmember [facility] [employer] [facility] This patient meets or has met medical [...] to the planned procedure. Hand Hygiene: The assessment manager did perform hand hygiene prior to arterial [...] ease. Good wave form. Ivan Hernandez MD Service Coordinator Elderly Facility Associated attestation - Rolando Yeh MD - [...] Fahad was quite active prior to his ND. 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 Given parameters for home exercise. He follows a heart healthy diet and is not overweight. His lipids are wnl. Participation in an outpatient cardiac rehabilitation program at [facility] was discussed. Patient agrees [...] No Patient is insured through: Primary Insurance: [facility] MANAGED MEDICARE Payor: [facility] MANAGED MEDICARE / Plan: PAUL OLIVER [...] Date of Discharge: 08/04/2024 Gaby Wong RN, Pager-[phone] * Initial Assessments - Char Meza, OT - 08/03/2024 10:00 AM EST Occupational Therapy Evaluation Patient profile: Korey Montoya is a 74 y.o. male admitted on 07/29/2024 w/ PMH of hypertension, HLD, and BPH who presents for chief concern of chest pain after being found to have ST elevations onEKG. Patient transferred via air ambulance to [facility] on 07/29 for LHC and LOW to LAD for 100% occlusion. Past Medical History: Diagnosis Date ADHD HLD (hyperlipidemia) HTN (hypertension) Tremor Past Surgical History: Procedure Laterality Date HAND SURGERY PRO COLONOSCOPY, REMV LESN, SNARE N/A 08/30/2023 COLONOSCOPY, POLYPECTOMY, REMOVAL LESION BY SNARE (WRVU 4.57) performed by Brandan Mcgovern MD [facility] ENDOSCOPY Social History: Patient lives with his . Home Setup: 2 NAOMI to a 1 level home. DME: none Baseline ADL/Mobility: Independent with ADLs and IADLs. Enjoys walking. able assist as needed. Precautions/Special Considerations: Full code. Risk for falls. Subjective: I have access to an [employer] weight gym. (Educated to wait for MD [...] evaluation only Total Minutes, Occupational Therapy: 14 ([id number] (evaluation)) 2017 OT Evaluation Code Rationale: Diagnosis [...] and measurable assessment of functional outcome. Pager: [phone] Char Meza OT 08/03/2024 Occupational Therapy Rehabilitation [...] (Interventions Implemented as Appropriate) Flowsheets (Taken 08/01/2024 3776) Outcome Summary: A+O, no pain. NSR. MAP [...] Procedure Note: Patient Name: Korey Montoya : [id number] MR#: [id number] Case Date: 07/31/2024 Forest Resource Specialist: Surgeons and Role: * Maldonado Luis MD - Primary * Quinten Charles PA - Physician Plant Scientist Preoperative diagnosis: shock, impella Postoperative diagnosis: * same * Procedure(s) performed: Impella removal form right DIRECTOR OF CONTRACTS Access: Right DIRECTOR OF CONTRACTS A time-out was conducted prior to the [...] surrogate would be surrogate decision maker per [place] decision making law. (Only good for 180 days) Any patient receiving care in [place] must abide by [place] law. The hierarchy for surrogate decision making [...] agent with financial power of real estate attorney or a conservator appointed in accordance [...] were you homeless or living in a detention (including now)?: No In the past 12 months has the [email or web address] gas, oil, or water [employer] threatened to shut off services in your [...] Home Address confirmed as: Mailing Address: [facility] [address] [address] Physical Address: [address] [place], [place] Social & Family Supports: All names [...] points: Addiction likely Health/Prescription Coverage: Primary Insurance: [facility] [employer] MEDICARE Payor: [facility] [employer] MEDICARE / Plan: [facility] [employer] MEDICARE COMPLETE / Product Type: *No Product type* / Secondary Insurance: N/A ; Prescription Coverage: Yes Preferred Pharmacy: [address] [address] Status: Patient is a : No Primary Care Provider confirmed: Alexia Mtz, OPERATOR [employer] [phone] Patient/Caregiver Goals of Treatment: return home Potential [...] 07/29/2024 6:25 PM EST 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 CXR and EKG completed. [...] Procedure Note: Patient Name: Korey Montoya : [id number] MR#: [id number] Case Date: 07/29/2024 Forest Resource Specialist: Surgeons and Role: * Vahe Marvin MD - Primary * Susannah Watts PA - Physician Plant Scientist Preoperative diagnosis: STEMI Postoperative diagnosis: * STEMI, LAD Artery * * Cardiogenic Shock * Procedure(s) performed: [facility] Coronary angiogram Stent insertion coronary IVUS coronary Venous line insert [facility] [place] Colette Catheter Vascular closure device Ventricular assist [...] LCX: no significant disease LAD: proximal 100% ILZ 0 distal flow Ongoing chest pain during procedure, specifically during coronary stent insertion. Inflated 3.0 x 22 mm to 14 deonna JEISON [place] with LIZ 3 flow. Residual distal disease at distal stent, overlapping distal stent was inserted with 3.0 x 8 mm JEISON [place]. Systolic's in the 80's sustained. Patient re [...] AM EST Office Visit Cardiology at [address] [phone] Mushtaq Murphy, OPERATOR [employer] Scheduled Orders Name Type Priority Associated Diagnoses [...] 0.04 x10(3)/mc L 08/04/2024 6:39 AM EST [facility] Blood VENOUS BLOOD SPECIMEN / Unknown Venipuncture / Unknown 08/04/2024 6:08 AM EST 08/04/2024 6:19 AM EST Bridgette Stauffer MD HEMATOLOGY ORDERABLE S Performing Organization Address City/[facility]/ZIP Co de Phone Number [facility] [place] [address] * Magnesium (08/04/2024 6:08 AM EST) Magnesium 0.85 0.69 - 1.07 mMol/L 08/04/2024 7:07 AM [facility] Blood VENOUS BLOOD SPECIMEN / Unknown Venipuncture / Unknown 08/04/2024 6:08 AM EST 08/04/2024 6:19 AM EST Bridgette Stauffer MD CHEMISTRY ORDERABLES Performing Organization Address City/[facility]/ZIP Co de Phone Number [facility] [place] [address] * Basic Metabolic Panel (08/04/2024 6:08 AM [...] Stauffer MD CHEMISTRY ORDERABLES Performing Organization Address City/State/[facility] Co de Phone Number [facility] [place] [address] * (ABNORMAL) CBC (with Diff) (08/03/2024 5:16 [...] Monocyte % 9.0 % 08/03/2024 5:29 AM EST [facility] Monocyte Absolute 0.71 0.30 - 0.90 x10(3)/mc L 08/03/2024 5:29 AM [facility] Eos % 1.7 % 08/03/2024 5:29 AM [facility] Eos Absolute 0.13 0.00 - 0.40 x10(3)/mc L 08/03/2024 5:29 AM EST [facility] Basophil % 0.4 % 08/03/2024 5:29 AM [facility] Baso Absolute <0.04 0.00 - 0.10 x10(3)/mc L 08/03/2024 5:29 AM [facility] [...] EST Bridgette Stauffer MD HEMATOLOGY ORDERABLE S [facility] [place] [address] * Magnesium (08/03/2024 5:16 AM EST) Magnesium 0.89 0.69 - 1.07 mMol/L 08/03/2024 5:56 AM EST [facility] Blood VENOUS BLOOD SPECIMEN / Unknown Venipuncture / Unknown 08/03/2024 5:16 AM EST 08/03/2024 5:23 AM EST Bridgette Stauffer MD CHEMISTRY ORDERABLES [facility] [place] [address] * (ABNORMAL) Basic Metabolic Panel (08/03/2024 5:16 [...] 135 - 145 mMol/L 08/03/2024 5:56 AM [facility] Potassium 4.5 3.5 - 5.0 [...] MD CHEMISTRY ORDERABLES Performing Organization Address [facility] Co de Phone Number [facility] [place] [address] * POC, GLUCOSE (08/02/2024 7:47 AM EST) [facility] Glucometer, POC 89 65 - 199 mg/dL 08/02/2024 7:47 AM EST [facility] Comment:Supplemental ranges: <140 mg/dL before meals <180 mg/dL all other times of the day. Blood CAPILLARY BLOOD / Unknown 08/02/2024 7:47 AM EST 08/02/2024 7:47 AM EST Krystal Parker MD POINT OF CARE TEST O RDERABLES Performing Organization Address [facility] Co de Phone Number [facility] [place] [address] * (ABNORMAL) CBC (with Diff) (08/02/2024 4:20 AM EST) [facility] White Blood Cell 8.51 4.00 - 9.50 [...] 0.40 x10(3)/mc L 08/02/2024 4:50 AM EST [facility] Basophil % 0.4 % 08/02/2024 4:50 AM EST [facility] Baso Absolute <0.04 0.00 - 0.10 x10(3)/mc L 08/02/2024 4:50 AM [facility] Immature Gran % 0.4 % 4:50 AM EST [facility] Immature Gran Absolute <0.04 0.00 - 0.04 x10(3)/mc L 08/02/2024 4:50 AM [facility] Blood VENOUS BLOOD SPECIMEN / Unknown Venipuncture / Unknown 08/02/2024 4:20 AM EST 08/02/2024 4:37 AM EST Bridgette Stauffer MD HEMATOLOGY ORDERABLE S Performing Organization Address City/[facility]/ZIP Co de Phone Number [facility] [place] [address] * Magnesium (08/02/2024 4:20 AM EST) Pathologist [facility] Magnesium 0.79 0.69 - 1.07 mMol/L 08/02/2024 5:06 AM [facility] Blood VENOUS BLOOD SPECIMEN / Unknown Venipuncture / Unknown 08/02/2024 4:20 AM EST 08/02/2024 4:37 AM EST Bridgette Stauffer MD CHEMISTRY ORDERABLES [facility] [place] [address] * (ABNORMAL) Basic Metabolic Panel (08/02/2024 4:20 [...] 5 - 15 mMol/L 08/02/2024 5:06 AM [facility] Calcium 8.1(L) 8.5 - 10.5 mg/dL 08/02/2024 5:06 AM [facility] Est Glomerular Filtration Rate - Male 91 mL/min/1. 73 m?? 08/02/2024 5:06 AM [facility] [...] AM EST Bridgette Stauffer MD CHEMISTRY ORDERABLES [facility] [place] [address] * Potassium (08/01/2024 8:39 PM EST) Potassium 4.0 3.5 - 5.0 mMol/L 08/01/2024 9:21 PM EST [facility] Blood VENOUS BLOOD SPECIMEN / Unknown Venipuncture / Unknown 08/01/2024 8:39 PM EST 08/01/2024 8:51 PM EST Jay Silverio MD CHEMISTRY ORDERABL ES Performing Organization Address City/[facility]/ZIP Co de Phone Number [facility] [place] [address] * POC, GLUCOSE (08/01/2024 8:35 PM EST) Glucometer, POC 112 65 - 199 mg/dL 08/01/2024 8:36 PM EST [facility] Comment:Supplemental ranges: <140 mg/dL before meals <180 mg/dL all other times of the day. Blood CAPILLARY BLOOD / Unknown 08/01/2024 8:35 PM EST 08/01/2024 8:36 PM EST Krystal Parker MD POINT OF CARE TEST O RDKAY Performing Organization Address [facility] Co de Phone Number [facility] [place] [address] * POC, GLUCOSE (08/01/2024 4:55 PM EST) Glucometer, POC 99 65 - 199 mg/dL 08/01/2024 4:56 PM EST [facility] Comment:Supplemental ranges: <140 mg/dL before meals <180 mg/dL all other times of the day. Blood CAPILLARY BLOOD / Unknown 08/01/2024 4:55 PM EST 08/01/2024 4:56 PM EST Krystal Parker MD POINT OF CARE TEST O JOSH Performing Organization Address City/[facility]/ZIP Co de Phone Number [facility] [place] [address] * POC, GLUCOSE (08/01/2024 12:42 PM EST) Glucometer, POC 130 65 - 199 mg/dL 08/01/2024 12:43 PM EST [facility] Comment:Supplemental ranges: <140 mg/dL before meals <180 mg/dL all other times of the day. Blood CAPILLARY BLOOD / Unknown 08/01/2024 12:42 PM EST 08/01/2024 12:43 PM EST Krystal Parker MD POINT OF CARE TEST O JOSH [facility] [place] [address] * (ABNORMAL) Cooximetry, POC (08/01/2024 10:45 AM [...] MD POINT OF CARE TEST O RDERASHAY [facility] [place] [address] * Potassium (08/01/2024 8:20 AM EST) [facility] Potassium 4.0 3.5 - 5.0 mMol/L 08/01/2024 10:17 AM EST [facility] Blood ARTERIAL BLOOD / Unknown Venipuncture / Unknown 08/01/2024 8:20 AM EST 08/01/2024 8:30 AM EST Jay Silverio MD CHEMISTRY ORDERABL ES Performing Organization Address City/[facility]/ZIP Co de Phone Number [facility] [place] [address] * POC, GLUCOSE (08/01/2024 7:44 AM EST) [facility] Glucometer, POC 86 65 - 199 mg/dL 08/01/2024 7:44 AM EST [facility] Comment:Supplemental ranges: <140 mg/dL before meals <180 mg/dL all other times of the day. Blood CAPILLARY BLOOD / Unknown 08/01/2024 7:44 AM EST 08/01/2024 7:44 AM EST Krystal Parker MD POINT OF CARE TEST O RDERABLES [facility] [place] [address] * (ABNORMAL) CBC (with Diff) (08/01/2024 4:18 AM EST) [facility] White Blood Cell 8.51 4.00 - 9.50 x10(3)/mc L 08/01/2024 4:53 AM EST [facility] Red Blood Cell 4.12(L) 4.58 - 5.54 x10(6)/mc L 08/01/2024 4:53 AM EST [facility] Hemoglobin 11.2(L) 13.7 - 16.5 g/dL 08/01/2024 4:53 AM EST [facility] Hematocrit 33.8(L) 40.5 - 48.5 [...] EST Bridgette Stauffer MD HEMATOLOGY ORDERABLE S [facility] [place] [address] * Magnesium (08/01/2024 4:18 AM EST) Magnesium 0.74 0.69 - 1.07 mMol/L 08/01/2024 5:00 AM EST [facility] Blood VENOUS BLOOD SPECIMEN / Unknown Venipuncture / Unknown 08/01/2024 4:18 AM EST 08/01/2024 4:29 AM EST Bridgette Stauffer MD CHEMISTRY ORDERABLES [facility] [place] [address] * (ABNORMAL) Basic Metabolic Panel (08/01/2024 4:18 [...] MD CHEMISTRY ORDERABLES Performing Organization Address [facility] de Phone Number [facility] [place] [address] * POC, GLUCOSE (07/31/2024 8:41 PM EST) [facility] Signature Glucometer, POC 73 65 - 199 mg/dL 07/31/2024 8:41 PM EST [facility] Comment:Supplemental ranges: <140 mg/dL before meals <180 mg/dL all other times of the day. Blood CAPILLARY BLOOD / Unknown 07/31/2024 8:41 PM EST 07/31/2024 8:41 PM EST Krystal Parker MD POINT OF CARE TEST O RDERABLES Performing Organization Address [facility] Phone Number [facility] [place] [phone] * CARDIAC CATHETERIZATION (07/31/2024 5:53 PM EST) Anatomical Region Laterality Modality Other Narrative 08/01/2024 12:37 PM EST ?[facility] ? Cardiac Catheterization/Intervention Report ? Patient Name: Korey Montoya ? Procedure Date: 07/31/2024 ? A #: [id number] ? Primary Physician: Maldonado Luis ? Case #: [id number] ? File Name: [id number] ? Catheterization Order Number: [id number] ? [facility] ? Final Report [place], [place] ? Patient Name: ? Korey P. Montoya ?ID#: ?[id number] ? : ?1950 ? Procedure Date: ? [...] ?Impella removed from the right DIRECTOR OF CONTRACTS with deployment of Perclose and ?Angioseal. ??Good [...] Procedure Note Maldonado Luis MD - 08/01/2024 [facility] Cardiac Catheterization/Intervention Report Patient Name: Korey MontoyaToby Procedure Date: 07/31/2024 A #: [id number] Primary Physician: Maldonado Luis Case #: [id number] File Name: [id number] Catheterization Order Number: [id number] [facility] FinalReport [place], [place] Patient Name: Korey Montoya ID#:[id number] :1950 Procedure Date: July 31, 2024 Case [...] Impella removed from the right DIRECTOR OF CONTRACTS with deployment of Perclose and Angioseal. Good [...] - 199 mg/dL 07/31/2024 11:04 AM EST [facility] Comment:Supplemental ranges: <140 mg/dL before meals <180 mg/dL all other times of the day. Blood CAPILLARY BLOOD / Unknown 07/31/2024 11:04 AM EST 07/31/2024 11:04 AM EST Krystal Parker MD POINT OF CARE TEST O RDERABLES [facility] [place] [phone] * (ABNORMAL) Blood Gas, Arterial POC (07/31/2024 8:29 AM EST) [facility] Signature pH, Arterial 7.48(H) 7.35 - 7.45 07/31/2024 [...] MD POINT OF CARE TEST O RDERABLES [facility] [place] [address] * POC, GLUCOSE (07/31/2024 7:47 AM EST) Pathologist [facility] Glucometer, POC 82 65 - 199 mg/dL 07/31/2024 7:53 AM [facility] Comment:Supplemental ranges: <140 mg/dL before meals <180 mg/dL all other times of the day. Blood CAPILLARY BLOOD / Unknown 07/31/2024 7:47 AM EST 07/31/2024 7:53 AM EST Krystal Parker MD POINT OF CARE TEST O RDERABLES [facility] [place] [address] * (ABNORMAL) CBC (with Diff) (07/31/2024 1:08 AM EST) [facility] White Blood Cell 10.25(H) 4.00 - 9.50 [...] HEMATOLOGY ORDERABLE S Performing Organization Address [facility] Co de Phone Number [facility] [place] [address] * Magnesium (07/31/2024 1:08 AM EST) Pathologist [facility] Magnesium 0.89 0.69 - 1.07 mMol/L 07/31/2024 1:46 AM [facility] Blood VENOUS BLOOD SPECIMEN / Unknown Venipuncture / Unknown 07/31/2024 1:08 AM EST 07/31/2024 1:18 AM EST Bridgette Stauffer MD CHEMISTRY ORDERABLES Performing Organization Address City/[facility] Co de Phone Number [facility] [place] [address] * (ABNORMAL) Basic Metabolic Panel (07/31/2024 1:08 [...] 0.80 - 1.50 mg/dL 07/31/2024 1:46 AM [facility] Sodium 140 135 - 145 mMol/L 07/31/2024 1:46 AM [facility] Potassium 4.1 3.5 - 5.0 mMol/L 07/31/2024 1:46 AM EST [facility] Chloride 110(H) 98 - 107 mMol/L 07/31/2024 1:46 AM [facility] Carbon Dioxide 24 22 - 31 mMol/L 07/31/2024 1:46 AM [facility] Anion Gap 6 5 - 15 mMol/L 07/31/2024 1:46 AM [facility] [...] AM EST Bridgette Stauffer MD CHEMISTRY ORDERABLES [facility] [place] [address] * (ABNORMAL) Hepatic Function Panel (07/31/2024 1:08 AM EST) Albumin 3.1(L) 3.2 - 5.2 g/dL 07/31/2024 1:46 AM EST [facility] Aspartate Aminotransferase 192(H) <=39 unit/L [...] MD CHEMISTRY ORDERABLES Performing Organization Address City/[facility] Co de Phone Number [facility] [place] [address] * POC, GLUCOSE (07/30/2024 8:03 PM EST) Glucometer, POC 86 65 - 199 mg/dL 07/30/2024 8:03 PM [facility] Comment:Supplemental ranges: <140 mg/dL before meals <180 mg/dL all other times of the day. Blood CAPILLARY BLOOD / Unknown 07/30/2024 8:03 PM EST 07/30/2024 8:03 PM EST Krystal Parker MD POINT OF CARE TEST O RDERABLES Performing Organization Address City/[facility]/ZIP Co de Phone Number [facility] [place] [address] * Potassium (07/30/2024 8:03 PM EST) Potassium 3.8 3.5 - 5.0 mMol/L 07/30/2024 9:13 PM EST [facility] Blood VENOUS BLOOD SPECIMEN / Unknown Venipuncture / Unknown 07/30/2024 8:03 PM EST 07/30/2024 8:22 PM EST Jay Silverio MD CHEMISTRY ORDERABL ES Performing Organization Address [facility] Co de Phone Number [facility] [place] [address] * POC, GLUCOSE (07/30/2024 6:23 PM EST) Glucometer, POC 93 65 - 199 mg/dL 07/30/2024 6:24 PM EST [facility] Comment:Supplemental ranges: <140 mg/dL before meals <180 mg/dL all other times of the day. Blood CAPILLARY BLOOD / Unknown 07/30/2024 6:23 PM EST 07/30/2024 6:24 PM EST Krystal Parker MD POINT OF CARE TEST O JOSH Performing Organization Address [facility] Co de Phone Number [facility] [place] [address] * POC, GLUCOSE (07/30/2024 5:08 PM EST) Glucometer, POC 78 65 - 199 mg/dL 07/30/2024 5:08 PM EST [facility] Comment:Supplemental ranges: <140 mg/dL before meals <180 mg/dL all other times of the day. Blood CAPILLARY BLOOD / Unknown 07/30/2024 5:08 PM EST 07/30/2024 5:08 PM EST Krystal Parker MD POINT OF CARE TEST O JOSH Performing Organization Address [facility] Co de Phone Number [facility] [place] [address] * (ABNORMAL) Phosphorus (07/30/2024 3:08 PM EST) Phosphorus 2.1(L) 2.5 - 4.5 mg/dL 07/30/2024 3:58 PM EST [facility] Blood VENOUS BLOOD SPECIMEN / Unknown Venipuncture / Unknown 07/30/2024 3:08 PM EST 07/30/2024 3:12 PM EST Jay Silverio MD CHEMISTRY ORDERABL ES Performing Organization Address City/[facility]/ZIP Co de Phone Number [facility] [place] [address] * Magnesium (07/30/2024 3:08 PM EST) Magnesium 0.90 0.69 - 1.07 mMol/L 07/30/2024 3:58 PM EST [facility] Blood VENOUS BLOOD SPECIMEN / Unknown Venipuncture / Unknown 07/30/2024 3:08 PM EST 07/30/2024 3:12 PM EST Jay Silverio MD CHEMISTRY ORDERABL ES Performing Organization Address City/[facility]/ZIP Co de Phone Number [facility] [place] [address] * (ABNORMAL) Basic Metabolic Panel (07/30/2024 3:08 PM EST) Glucose 105 65 - 199 mg/dL 07/30/2024 4:17 PM EST [facility] Comment:Glucose Concentratio n >=200 mg/dL plus symptoms is consistent with Diabetes Mellitus. Blood Urea Nitrogen 13 10 - 20 mg/dL 07/30/2024 4:17 PM EST [facility] Creatinine 1.01 0.80 - 1.50 mg/dL 07/30/2024 4:17 PM EST [facility] Sodium 141 135 - 145 mMol/L 07/30/2024 4:17 PM [facility] Potassium 3.4(L) 3.5 - 5.0 mMol/L 07/30/2024 4:17 PM [facility] Chloride 109(H) 98 - 107 mMol/L 07/30/2024 4:17 PM EST [facility] Carbon Dioxide 21(L) 22 - 31 mMol/L 07/30/2024 4:17 PM EST [facility] Anion Gap 11 5 - 15 mMol/L 07/30/2024 4:17 PM EST [facility] Calcium 7.9(L) 8.5 - 10.5 mg/dL 07/30/2024 4:17 PM EST [facility] Est Glomerular Filtration Rate - Male 79 mL/min/1. 73 m?? 07/30/2024 4:17 PM EST [facility] Comment: This patient's estimated GFR [...] MD CHEMISTRY ORDERABL ES Performing Organization Address City/State/[facility] Co de Phone Number [facility] [place] [address] * ECHO LMTD W CONTRAST W LMTD SPEC DOPP COLOR DOPP (07/30/2024 11:42 AM EST) Anatomical Region Laterality Modality Cardiac Other 07/30/2024 10:2 2 AM EST Narrative 07/30/2024 12:34 PM EST [address] [place] [address] ? Echocardiogram Report Name: KOREY MONTOYA Kyrie ? Study Date: 07/30/2024 10:22 AMBP: 124/66 mmHg : 1950 ? Height: 168 cm ? Account: [id number] Age: 74 yrs ? Weight: 65 kg Gender: Male ?BSA: 1.7 m2 Ordering Physician: Jay Silverio MD Referring Physician: CHAPARRO FERRERA Performed By: OMERO Millan Reason For Study: ST elevation myocardial infarction involving left anterior descending (LAD) coronary artery Interpreting Fellow: Ivan Hernandez. Exam Location: [facility]. Interpretation Summary Left ventricle is [...] Compared to the overnight study by the subcontract manager fellow the impella position is stable. 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 Procedure Limited - 55852. Image enhancement Definity was used for both [...] Procedure Note Kathleen Banda MD - 07/30/[address] [place], [place] [id number] Echocardiogram Report Name: LARA KOREY Kyrie Study Date: 410:22 AMBP: 124/66 mmHg : 1950 Height: 168 cm Account: [id number] Age: 74 yrs Weight: 65 kg Gender: Male BSA: 1.7 m2 Ordering Physician: Jay Silverio MD Referring Physician: CHAPARRO FERRERA Performed By: OMERO Millan Reason For Study: ST elevation myocardial infarction involving leftanterior descending (LAD) coronary artery Interpreting Fellow: Ivan Hernandez. Exam Location: [facility]. Interpretation Summary Left ventricle is [...] Compared to the overnight study by the subcontract manager fellow the impella positionis stable. The global left ventricular systolic function has improvedpredominantly via recruitment outside the LAD territory which remains akinetic. Procedure Limited - 82426. Image enhancement Definity was used for both [...] * POC, GLUCOSE (07/30/2024 11:17 AM EST) [facility] Glucometer, POC 97 65 - 199 mg/dL 07/30/2024 11:17 AM EST [facility] Comment:Supplemental ranges: <140 mg/dL before meals <180 mg/dL all other times of the day. Blood CAPILLARY BLOOD / Unknown 07/30/2024 11:17 AM EST 07/30/2024 11:17 AM EST Jay Silverio MD POINT OF CARE TEST ORDERABLES Performing Organization Address City/State/[facility] Co de Phone Number [facility] [place] [address] * (ABNORMAL) Blood Gas, Arterial POC (07/30/2024 8:16 AM EST) [facility] Signature pH, Arterial 7.44 7.35 - 7.45 07/30/2024 [...] 135 - 145 mmol/L 07/30/2024 8:17 AM [facility] Potassium, Arterial 3.9 3.5 - [...] Silverio MD POINT OF CARE TEST ORDERABLES [facility] [place] [address] * (ABNORMAL) Troponin - Single (07/30/2024 8:09 AM EST) Troponin-T, High Sensitivity 8,651(H) <=22 ng/L 07/30/2024 9:06 AM EST [facility] Comment: This patient's troponin T [...] troponin value can be found in the [facility] Test Catalog Troponin - https://[facility]-.testcatalog.org/catalogs/565/files/00595 Reference: Fourth Radisson Definition of Myocardial Infarction. Journal of the Stateless College of Cardiology 2018;72:3196-4397 Blood VENOUS BLOOD SPECIMEN / Unknown Venipuncture / Unknown 07/30/2024 8:09 AM EST 07/30/2024 8:26 AM EST Jay Silverio MD CHEMISTRY ORDERABL ES [facility] [place] [address] * POC, GLUCOSE (07/30/2024 7:40 AM EST) Pathologist Babita Glucometer, POC 111 65 - 199 mg/dL 07/30/2024 7:40 AM EST [facility] Comment:Supplemental ranges: <140 mg/dL before meals <180 mg/dL all other times of the day. Blood CAPILLARY BLOOD / Unknown 07/30/2024 7:40 AM EST 07/30/2024 7:40 AM EST Jay Silverio MD POINT OF CARE TEST ORDERABLES [facility] [place] [address] * (ABNORMAL) CBC (with Diff) (07/30/2024 2:11 AM EST) White Blood Cell 11.25(H) 4.00 - 9.50 x10(3)/mc L 07/30/2024 2:33 AM [facility] Red Blood Cell 4.50(L) 4.58 [...] - 3.20 x10(3)/mc L 07/30/2024 2:33 AM [facility] Monocyte % 5.4 % 07/30/2024 [...] EST Bridgette Stauffer MD HEMATOLOGY ORDERABLE S [facility] [place] [address] * Magnesium (07/30/2024 2:11 AM EST) Magnesium 1.01 0.69 - 1.07 mMol/L 07/30/2024 2:51 AM [facility] Blood VENOUS BLOOD SPECIMEN / Unknown Venipuncture / Unknown 07/30/2024 2:11 AM EST 07/30/2024 2:22 AM EST Bridgette Stauffer MD CHEMISTRY ORDERABLES Performing Organization Address City/[facility] Co de Phone Number [facility] [place] [address] * (ABNORMAL) Basic Metabolic Panel (07/30/2024 2:11 [...] - 15 mMol/L 07/30/2024 2:51 AM EST [facility] Calcium 7.7(L) 8.5 - 10.5 mg/dL 07/30/2024 2:51 AM EST [facility] Est Glomerular Filtration Rate - Male 91 mL/min/1. 73 m?? 07/30/2024 2:51 AM EST [facility] Comment: This patient's estimated GFR [...] AM EST Bridgette Stauffer MD CHEMISTRY ORDERABLES [facility] [place] [address] * (ABNORMAL) Cooximetry, POC (07/30/2024 1:00 AM EST) pO2, Coox 28 mmHg 07/30/2024 1:03 AM EST [facility] Hemoglobin, Coox 12.7(L) 13.7 - 16.5 g/dL 07/30/2024 1:03 AM EST [facility] Oxyhemoglobin, Coox 54.9 % 07/30/2024 1:03 AM EST [facility] Carboxyhemoglo bin, Coox 1.0 % 07/30/2024 1:03 AM EST [facility] Comment: Nonsmokers: 0.5-1.5% COHB ?? Smokers: Variable ??but usually less than 10% ?? Toxic: 20-30% COHB ?? Lethal: Greater than 60% COHB Methemoglobin, Coox 0.0 <=1.5 % 07/30/2024 1:03 AM [facility] Blood (Mixed Venous) 07/30/2024 1:00 AM EST 07/30/2024 1:03 AM EST Jay Silverio MD POINT OF CARE TEST ORDERABLES [facility] [place] [address] * (ABNORMAL) Blood Gas, Arterial POC (07/30/2024 [...] Flow Rate 2.0 L/min 07/30/2024 12:58 AM [facility] IONIZED CALCIUM, ARTERIAL 1.12(L) 1.15 - 1.33 mmol/L 07/30/2024 12:58 AM [facility] Glucose, Arterial 184 65 - 199 mg/dL 07/30/2024 12:58 AM [facility] Comment:Glucose Concentratio n >=200 mg/dL plus symptoms is consistent with Diabetes Mellitus. Blood ARTERIAL BLOOD / Unknown 07/30/2024 12:57 AM EST 07/30/2024 12:58 AM EST Jay Silverio MD POINT OF CARE TEST ORDERABLES [facility] [place] [address] * (ABNORMAL) Troponin - Single (07/29/2024 10:31 PM EST) Troponin-T, High Sensitivity >10,000(H ) <=22 ng/L 07/29/2024 11:03 PM EST [facility] Comment: This patient's troponin T [...] troponin value can be found in the [facility] Test Catalog Troponin - https://[facility].testcatalog.org/catalogs/565/files/93051 Reference: Fourth Radisson Definition of Myocardial Infarction. Journal of the Stateless College of Cardiology 2018;72:9566-2206 Blood VENOUS BLOOD SPECIMEN / Unknown Venipuncture / Unknown 07/29/2024 10:31 PM EST 07/29/2024 10:36 PM EST Yrn Ward MD CHEMISTRY ORDERABL ES Performing Organization Address City/[facility]/ZIP Co de Phone Number [facility] [place] [address] * Potassium (07/29/2024 8:11 PM EST) Potassium 4.1 3.5 - 5.0 mMol/L 07/29/2024 8:52 PM EST [facility] Blood VENOUS BLOOD SPECIMEN / Unknown Venipuncture / Unknown 07/29/2024 8:11 PM EST 07/29/2024 8:16 PM EST Jay Silverio MD CHEMISTRY ORDERABL ES [facility] [place] [address] * (ABNORMAL) Troponin - Single (07/29/2024 8:11 PM EST) Troponin-T, High Sensitivity >10,000(H ) <=22 ng/L 07/29/2024 8:52 PM EST [facility] Comment: This patient's troponin T [...] troponin value can be found in the [facility] Test Catalog Troponin - https://[facility]-.testcatalog.org/catalogs/565/files/15473 Reference: Fourth Radisson Definition of Myocardial Infarction. Journal of the Stateless College of Cardiology 2018;72:7064-2011 Blood VENOUS BLOOD SPECIMEN / Unknown Venipuncture / Unknown 07/29/2024 8:11 PM EST 07/29/2024 8:16 PM EST Jay Silverio MD CHEMISTRY ORDERABL ES Performing Organization Address City/State/[facility] Co de Phone Number [facility] [place] [address] * (ABNORMAL) Phosphorus (07/29/2024 8:11 PM EST) Phosphorus 2.1(L) 2.5 - 4.5 mg/dL 07/29/2024 8:52 PM EST [facility] Blood VENOUS BLOOD SPECIMEN / Unknown Venipuncture / Unknown 07/29/2024 8:11 PM EST 07/29/2024 8:16 PM EST Jay Silverio MD CHEMISTRY ORDERABL ES Performing Organization Address [facility] Co de Phone Number [facility] [place] [address] * POC, GLUCOSE (07/29/2024 8:09 PM EST) Glucometer, POC 142 65 - 199 mg/dL 07/29/2024 8:09 PM EST [facility] Comment:Supplemental ranges: <140 mg/dL before meals <180 mg/dL all other times of the day. Blood CAPILLARY BLOOD / Unknown 07/29/2024 8:09 PM EST 07/29/2024 8:09 PM EST Jay Silverio MD POINT OF CARE TEST ORDERABLES Performing Organization Address [facility] Co de Phone Number [facility] [place] [address] * ABORH RECHECK (07/29/2024 6:43 PM EST) Pathologist [facility] ABORH Recheck AB POSITIVE 07/29/2024 10:13 PM EST [facility] Blood VENOUS BLOOD SPECIMEN / Unknown Venipuncture / Unknown 07/29/2024 6:43 PM EST 07/29/2024 7:15 PM EST Jay Silverio MD BLOOD BANK LAB ORD ERABLES Performing Organization Address [facility] Co de Phone Number [facility] [place] [address] * POC, GLUCOSE (07/29/2024 5:57 PM EST) Glucometer, POC 166 65 - 199 mg/dL 07/29/2024 5:57 PM EST [facility] Comment:Supplemental ranges: <140 mg/dL before meals <180 mg/dL all other times of the day. Blood CAPILLARY BLOOD / Unknown 07/29/2024 5:57 PM EST 07/29/2024 5:57 PM EST Jay Silverio MD POINT OF CARE TEST ORDERABLES Performing Organization Address City/[facility]/ZIP Co de Phone Number [facility] [place] [address] * Type and screen ([facility]/JONG/MAGALIE) (07/29/2024 5:56 PM EST) [facility] ABORH Type AB POSITIVE 07/29/2024 9:44 PM EST [facility] PATIENT HISTORY Not Found 07/29/2024 9:44 PM EST [facility] Expires at [id number] on: 08/01/2024 07/29/2024 9:44 PM EST [facility] ANTIBODY SCREEN AUTOMATED Negative 07/29/2024 9:44 PM EST [facility] T&S only valid at [facility] 07/29/2024 9:44 PM EST [facility] Blood VENOUS BLOOD SPECIMEN / Unknown Venipuncture / Unknown 07/29/2024 5:56 PM EST 07/29/2024 6:07 PM EST Narrative [facility] - 07/29/2024 9:44 PM EST This Type and Screen result is only valid at the [facility] Jay Silverio MD BLOOD BANK LAB ORD ERABLES Performing Organization Address City/[facility] Co de Phone Number [facility] [place] [address] * (ABNORMAL) Troponin - Single (07/29/2024 4:52 PM EST) [facility] Troponin-T, High Sensitivity >10,000(H ) <=22 ng/L 07/29/2024 5:25 PM EST [facility] Comment: This patient's troponin T [...] troponin value can be found in the [facility] Test Catalog Troponin - https://one-.testcatalog.org/catalogs/565/files/14873 Reference: Fourth Radisson Definition of Myocardial Infarction. Journal of the Stateless College of Cardiology 2018;72:1323-5695 Blood VENOUS BLOOD SPECIMEN / Unknown Venipuncture / Unknown 07/29/2024 4:52 PM EST 07/29/2024 4:57 PM EST Jay Silverio MD CHEMISTRY ORDERABL ES Performing Organization Address [facility]/ZIP Co de Phone Number [facility] [place] [address] * EKG 12 Lead (07/29/2024 4:21 PM EST) Ventricular rate 72 BPM MUSE SYSTEM Atrial Rate 72 BPM MUSE SYSTEM P-R Interval 168 ms MUSE SYSTEM QRS Duration 82 ms MUSE SYSTEM Q-T Interval 392 ms MUSE SYSTEM QTC Calculated (Bezet) 429 ms MUSE SYSTEM Calculated P [place] 71 degrees MUSE SYSTEM Calculated R [place] 77 degrees MUSE SYSTEM Calculated T [place] 28 degrees MUSE SYSTEM INTERPRETATION Sinus rhythm with Premature supraventricular complexes and Occasional Premature ventricular complexes Low voltage QRS 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) Lateral injury pattern ACUTE ND / STEMI Abnormal ECG When compared with [...] 7.37 7.35 - 7.45 07/29/2024 4:22 PM [facility] PCO2, Arterial 36 35 - 45 mmHg 07/29/2024 4:22 PM [facility] PO2, Arterial 71(L) 85 - 104 mmHg 07/29/2024 4:22 PM [facility] Bicarbonate, Arterial 20.4 20.0 - 26.0 mmol/L 07/29/2024 4:22 PM [facility] Base Excess, Arterial -4.8(L) -3.0 [...] 0.5 - 2.2 mmol/L 07/29/2024 4:22 PM EST [facility] Fraction of Inspired Oxygen 21 [...] CARE TEST ORDERABLES Performing Organization Address City/[facility]/ZIP Co de Phone Number [facility] [place] [address] * POC, GLUCOSE (07/29/2024 4:19 PM EST) Glucometer, POC 185 65 - 199 mg/dL 07/29/2024 4:19 PM [facility] Comment:Supplemental ranges: <140 mg/dL before meals <180 mg/dL all other times of the day. Blood CAPILLARY BLOOD / Unknown 07/29/2024 4:19 PM EST 07/29/2024 4:19 PM EST Jay Silverio MD POINT OF CARE TEST ORDERABLES [facility] [place] [address] * Blood culture (07/29/2024 4:08 PM EST) Blood Culture No growth at 120 hours 08/03/2024 5:01 PM EST [facility] Blood VENOUS BLOOD SPECIMEN / Unknown Venipuncture / Unknown 07/29/2024 4:08 PM EST 07/29/2024 4:15 PM EST Jay Silverio MD MICROBIOLOGY - BLO OD ORDERABLES Performing Organization Address [facility] Co de Phone Number [facility] [place] [address] * Blood culture (07/29/2024 4:08 PM EST) Blood Culture No growth at 120 hours 08/03/2024 5:01 PM EST [facility] Blood VENOUS BLOOD SPECIMEN / Unknown Venipuncture / Unknown 07/29/2024 4:08 PM EST 07/29/2024 4:26 PM EST Jay Silverio MD MICROBIOLOGY - BLO OD ORDERABLES Performing Organization Address [facility] de Phone Number [facility] [place] [phone] * XR Chest One View (07/29/2024 2:30 PM EST) WORKSTATION ID [id number] RAD Anatomical Region Laterality Modality Chest N/A [...] ? Electronically signed by: Chris Candelaria MD, [facility] ([phone]), at 07/29/2024 3:21 PM Narrative 07/29/2024 3:21 [...] first. Electronically signed by: Chris Candelaria MD, [facility]([phone]), at 07/29/2024 3:21 PM Vahe Marvin MD IMG DX ORDERABLES * (ABNORMAL) APTT (07/29/2024 2:03 PM EST) [facility] Partial Thromboplastin Time >160(HHH) 25 - 37 sec 07/29/2024 2:56 PM EST [facility] Blood VENOUS BLOOD SPECIMEN / Unknown Venipuncture / Unknown 07/29/2024 2:03 PM EST 07/29/2024 2:13 PM EST Vahe Marvin MD HEMATOLOGY ORDERABLE S Performing Organization Address City/[facility]/ZIP Co de Phone Number [facility] [place] [address] * (ABNORMAL) Prothrombin Time (07/29/2024 2:03 PM EST) Prothrombin Time 14.2(H) 9.4 - 12.5 sec 07/29/2024 2:56 PM EST [facility] International Normalization Ratio 1.3 <=4.9 07/29/2024 2:56 PM EST [facility] Comment: An INR < 2.0 [...] HEMATOLOGY ORDERABLE S Performing Organization Address [facility] Co de Phone Number [facility] [place] [address] * CRP, acute inflammation (07/29/2024 2:03 PM EST) C-Reactive Protein <3.0 <=4.9 mg/L 07/29/2024 2:52 PM EST [facility] Blood VENOUS BLOOD SPECIMEN / Unknown Venipuncture / Unknown 07/29/2024 2:03 PM EST 07/29/2024 2:14 PM EST Vahe Marvin MD CHEMISTRY ORDERABLES [facility] [place] [address] * Lipid Panel (Reflex Direct LDL) (07/29/2024 2:03 PM EST) Cholesterol, Total 133 mg/dL 07/29/2024 2:52 PM [facility] Comment: Desirable: < 200 mg/dL Borderline High: 200 - 239 mg/dL High: > or = 240 mg/dL Triglyceride 45 mg/dL 07/29/2024 2:52 PM [facility] Comment: Normal: <150 mg/dL Borderline [...] artery disease) Vahe Marvin MD CHEMISTRY ORDERABLES [facility] [place] [address] * TSH Imogene (07/29/2024 2:03 PM EST) Thyroid Stimulating Hormone 0.70 0.27 - 4.20 mcIU/mL 07/29/2024 2:52 PM EST [facility] Blood VENOUS BLOOD SPECIMEN / Unknown Venipuncture / Unknown 07/29/2024 2:03 PM EST 07/29/2024 2:14 PM EST Vahe Marvin MD CHEMISTRY ORDERABLES [facility] [place] [address] * Hemoglobin A1c (07/29/2024 2:03 PM EST) Pathologist [facility] Hemoglobin A1c 5.3 4.3 - 5.6 % 07/29/2024 2:41 PM EST [facility] Comment: Per ADA guidelines, without [...] red blood cell turnover may not be inventory representative of glycemic control. Reference Interval: 4.3 - 5.6% 5.7 - 6.4%: Consistent with prediabetes >=6.5%: Consistent with diagnosis of diabetes mellitus Estimated Average Glucose 07/29/2024 2:41 PM EST [facility] Comment:Estimated Average Gl ucose not [...] into estimated average glucose values. ??Diabetes Care 2008:31(8):4566-9429. Additional resources are available on the ADA website (diabetes.org). Vahe Marvin MD CHEMISTRY ORDERABLES [facility] [place] [address] * (ABNORMAL) CBC (with Diff) (07/29/2024 2:03 PM EST) White Blood Cell 19.50(H) 4.00 - 9.50 x10(3)/mc L 07/29/2024 2:18 PM EST [facility] Red Blood Cell 4.81 4.58 - 5.54 x10(6)/mc L 07/29/2024 2:18 PM [facility] Hemoglobin 13.1(L) 13.7 - 16.5 g/dL 07/29/2024 2:18 PM [facility] Hematocrit 40.1(L) 40.5 - 48.5 % 07/29/2024 2:18 PM EST [facility] Mean Cell Volume 83.4 82.9 - 93.1 fL 07/29/2024 2:18 PM EST [facility] Mean Cell Hemoglobin 27.2(L) 27.5 [...] - 3.20 x10(3)/mc L 07/29/2024 2:18 PM [facility] Monocyte % 2.9 % 07/29/2024 2:18 PM [facility] Monocyte Absolute 0.56 0.30 - 0.90 x10(3)/mc L 07/29/2024 2:18 PM [facility] Eos % 0.0 % 07/29/2024 2:18 PM [facility] Eos Absolute <0.04 0.00 - 0.40 x10(3)/mc L 07/29/2024 2:18 PM [facility] Basophil % 0.3 % 07/29/2024 2:18 PM [facility] Baso Absolute 0.05 0.00 - 0.10 x10(3)/mc L 07/29/2024 2:18 PM [facility] Immature Gran % 0.5 % 2:18 PM [facility] Immature Gran Absolute 0.09(H) 0.00 - 0.04 x10(3)/mc L 07/29/2024 2:18 PM [facility] Blood VENOUS BLOOD SPECIMEN / Unknown Venipuncture / Unknown 07/29/2024 2:03 PM EST 07/29/2024 2:13 PM EST Vahe Marvin MD HEMATOLOGY ORDERABLE S [facility] [place] [address] * Phosphorus (07/29/2024 2:03 PM EST) Phosphorus 2.5 2.5 - 4.5 mg/dL 07/29/2024 2:52 PM EST [facility] Blood VENOUS BLOOD SPECIMEN / Unknown Venipuncture / Unknown 07/29/2024 2:03 PM EST 07/29/2024 2:14 PM EST Vahe Marvin MD CHEMISTRY ORDERABLES Performing Organization Address City/[facility]/ZIP Co de Phone Number [facility] [place] [address] * Magnesium (07/29/2024 2:03 PM EST) Pathologist [facility] Magnesium 0.70 0.69 - 1.07 mMol/L 07/29/2024 2:52 PM EST [facility] Blood VENOUS BLOOD SPECIMEN / Unknown Venipuncture / Unknown 07/29/2024 2:03 PM EST 07/29/2024 2:14 PM EST Vahe Marvin MD CHEMISTRY ORDERABLES Performing Organization Address City/[facility]/ZIP Co de Phone Number [facility] [place] [address] * (ABNORMAL) Comprehensive metabolic panel (07/29/2024 2:03 PM EST) Glucose 243(H) 65 - 199 mg/dL 07/29/2024 3:11 PM EST [facility] Comment:Glucose Concentratio n >=200 mg/dL plus symptoms is consistent with Diabetes Mellitus. Blood Urea Nitrogen 13 10 - 20 mg/dL 07/29/2024 3:11 PM EST [facility] Creatinine 0.88 0.80 - 1.50 [...] 8.5 - 10.5 mg/dL 07/29/2024 3:11 PM [facility] Protein, Total 6.0(L) 6.1 - [...] PM EST Vahe Marvin MD CHEMISTRY ORDERABLES [facility] [place] [address] * (ABNORMAL) Troponin - Single (07/29/2024 2:03 PM EST) Troponin-T, High Sensitivity >10,000(H ) <=22 ng/L 07/29/2024 2:52 PM EST [facility] Comment: This patient's troponin T [...] troponin value can be found in the [facility] Test Catalog Troponin - https://one-.testcatalog.org/catalogs/565/files/42631 Reference: Fourth Radisson Definition of Myocardial Infarction. Journal of the Stateless College of Cardiology 2018;72:1223-8742 Blood VENOUS BLOOD SPECIMEN / Unknown Venipuncture / Unknown 07/29/2024 2:03 PM EST 07/29/2024 2:14 PM EST Vahe Marvin MD CHEMISTRY ORDERABLES [facility] [place] [address] * (ABNORMAL) Blood Gas, Venous POC (07/29/2024 2:01 PM EST) pH, Venous 7.30(L) 7.32 - 7.42 07/29/2024 2:02 PM [facility] PCO2, Venous 42 38 - 58 mmHg 07/29/2024 2:02 PM [facility] PO2, Venous 39 16 - [...] 0.3 <=1.5 % 07/29/2024 2:02 PM EST [facility] Sodium, Venous 137 135 - 145 mmol/L 07/29/2024 2:02 PM [facility] Potassium, Venous 3.6 3.5 - 5.0 mmol/L 07/29/2024 2:02 PM [facility] Chloride, Venous 103 98 - 107 mmol/L 07/29/2024 2:02 PM EST [facility] Glucose, Venous 229(H) 65 - 199 mg/dL 07/29/2024 2:02 PM EST [facility] Comment:Glucose Concentratio n >=200 mg/dL plus symptoms is consistent with Diabetes Mellitus. Lactate, Venous 3.1(H) 0.5 - 2.2 mmol/L 07/29/2024 2:02 PM EST [facility] Ionized Calcium, Venous 1.11(L) 1.15 - 1.33 mmol/L 07/29/2024 2:02 PM EST [facility] Blood VENOUS BLOOD SPECIMEN / Unknown 07/29/2024 2:01 PM EST 07/29/2024 2:02 PM EST Vahe Marvin MD POINT OF CARE TEST O RDERABLES Performing Organization Address City/State/[facility] Co de Phone Number [facility] [place] [address] * CARDIAC CATHETERIZATION (07/29/2024 1:20 PM EST) Anatomical Region Laterality Modality Other Narrative 07/29/2024 2:02 PM EST ?[facility] ? Cardiac Catheterization/Intervention Report ? Patient Name: Korey Montoya Driss ? Procedure Date: 07/29/2024 ? A #: [id number] ? Primary Physician: Vahe Marvin ? Case #: [id number] ? File Name: [id number] ? Catheterization Order Number: [id number] ? [facility] ? Final Report [place], [place] ? Patient Name: ? Korey P. Montoya ?ID#: ?[id number] ? : ?1950 ? Procedure Date: ? [...] procedure was Emergent. The indication for ?the manufacturing lab technician visit is ACS less than or [...] 3.5 guiding catheter and a 3.5 Fr [place] [address] ??20 Mhz using ?Manual pullback. ??Imaging [...] ? A premounted 3.00 x 22 mm [place] (LOW) was deployed ? with a maximum [...] ??A premounted 3.00 x 08 mm [place] (LOW) ? was deployed with a maximum [...] dose administered prior to arrival in the manufacturing lab technician. ?Recommended anti-platelet/anti-thrombotic regimen: ?Start aspirin 81 mg daily now and continue for 12 months then stop. ?Start clopidogrel 75 mg daily now and continue for indefinitely. ?These recommendations are made at the time of the intervention. Patient ?and provider preferences or a changing clinical situation may require ?modification of this regimen. Consult [facility] Interventional Cardiology for [...] able ?to start weaning his inotropes/vasopressors. A Prompton Colette catheter was ?placed demonstrating improvement in his hemodynamics and the impella site ?was perclosed and hemostatic gauze was applied with excellent result. ?WIll transfer to the [facility] for further management. ?The attending physician was present for the entire procedure. ?Dr. Vahe Marvin M.D. was present during the moderate sedation ?intraservice time as documented by the sedation nurse. ??Case time = 01:26. ?Dr. Vahe Marvin M.D. performed the coronary angiography, left heart ?catheterization, IVUS # coronary, stent insertion-coronary, oximetry, ABG, ?transthoracic echo , ventricular assist device insertion, right heart ?catheterization, Prompton (flow directed cath) insertion, access site ?angiography, vascular ultrasound, venous line / sheath insert and vascular ?closure device. ? Vahe Marvin M.D. ? Electronically Signed by: Vahe Marvin M.D. ? Report Finalized: 07/29/2024 ??13:55 ? Report Last Ammended: 07/30/2024 ??10:15 ? Procedure Note Vahe Marvin MD - 07/30/2024 [facility] Cardiac Catheterization/Intervention Report Patient Name: Korey Montoya Procedure Date: 07/29/2024 A #: [id number] Primary Physician: Vahe Marvin Case #: [id number] File Name: [id number] Catheterization Order Number: [id number] [facility] FinalReport [place], [place] Patient Name: Korey Montoya ID#:[id number] :1950 Procedure Date: July 29, 2024 Case [...] was designated as ASA Class IV. The HAclinical frailty scale is 4: Vulnerable. Diagnostic Tests: Electrocardiography: EKG was assessed by ECG. EKG was Abnormal. EKG showed STDeviation >= 0.5 mm. Medications Prior to Procedure: Angiotensin II Receptor Elvis and Statin. Indications for Diagnostic Cath: The priority of the diagnostic procedure was Emergent. Theindication for the manufacturing lab technician visit is ACS less than or [...] 3.5 guiding catheter and a 3.5 Fr [place] [facility] [place] [address] 20 Mhzusing Manual pullback. Imaging was [...] priority for the procedure was Emergent.The [facility] indication for the procedure was [...] The lesion was predilated with a 2.00mm OIOWSNQ60 MM balloon with a maximum inflation pressure of 12atmospheres. A premounted 3.00 x 22 mm [place] (LOW) wasdeployed with a maximum inflation pressure [...] A premounted 3.00 x 08 mm [place](LOW) was deployed with a maximum inflation pressure [...] dose administered prior to arrival in the manufacturing lab technician. Recommended anti-platelet/anti-thrombotic regimen: Start aspirin 81 mg daily now and continue for 12 months then stop. Start clopidogrel 75 mg daily now and continue for indefinitely. These recommendations are made at the time of the intervention.Patient and provider preferences or a changing clinical situation mayrequire modification of this regimen. Consult [facility] Interventional Cardiologyfor questions. [...] wereable to start weaning his inotropes/vasopressors. A Prompton Colette catheterwas placed demonstrating improvement in his [...] ventricular assist device insertion, right heart catheterization, Prompton (flow directed cath) insertion, access site angiography, [...] MD POINT OF CARE TEST O RDERABLES [facility] [place] [address] * (ABNORMAL) BLOOD GAS, POC (07/29/2024 12:12 [...] MD POINT OF CARE TEST O RDERABLES [facility] [place] [address] documented in this encounter Visit Diagnoses Not [...] 81 mg, Oral, DAILY, First dose on 07/30/24 at 0900, Until Discontinued, Recovery (Recovery-Hospital Unit), [...] 75 mg, Oral, DAILY, First dose on 07/30/24 at 0900, Until Discontinued, Routine Given 08/04/2024 [...] Wisdom, RENEA) 2202 (Given - Provider: France Guerrero, RENEA) [...] Wisdom, RENEA) 2202 (Given - Provider: France Guerrero, RENEA [...] Routine documented in this encounter Care Teams Route Sales Delivery Driver Relationship Specialty Start Date End Date Alexia Mtz, OPERATOR [employer] [address] [place] [address] PCP - General Family Medicine 07/30/24 documented as of this encounter
--- OUTSIDE RECORDS SUMMARY | 2024-09-19 11:35 | XMS_ITS | Encounter Summary ---
[place] [address] Care Team Providers Care Substitute Teacher Name Role Phone Alexia Mtz [place] Primary Care Provider Encounter Details Date Type Department Care Team (Late st Contact Info) Description 07/29/2024 External [place] [id number] Social History Tobacco Use Types Packs/Day Years [...] time in the past [address] [facility], were you homeless or living in [...] AM EST Office Visit Cardiology at [address] [address] Mushtaq Murphy APRN documented as of this encounter Procedures Procedure Name Priority Date/Time Associated Diagnosis Comments MISC EXTERNAL CARDIOLOGY RESULT Routine 07/29/2024 10:13 AM EST documented in this encounter Results * External Cardiology Result (07/29/2024 10:13 AM EST) Anatomical Region Laterality Modality Other Historical Provider EXTERNAL CARDIOLO GY RESULT documented in this encounter Visit Diagnoses Not on filedocumented in this encounter Care Teams Substitute Teacher Relationship Specialty Start Date End Date Alexia Mtz APRN [address] [place] [address] PCP - General Family Medicine 07/30/24 documented as of this encounter
--- OUTSIDE RECORDS SUMMARY | 2024-09-19 11:35 | XMS_ITS | Encounter Summary ---
Author Organization [facility] [place] [address] Care Team Providers Care Machine Adjuster Leader Case Trim Name Role Phone Yoel Artis Ute ALCALA Primary Care Provider [phone] Encounter Details Date Type Department Care Team (Late st Contact Info) Description 07/29/2024 Interpretation Only [facility] [address] [place] [phone] Chaparro Montana MD [address] [place] [address] Social History Tobacco Use Types Packs/Day Years Used Date Smoking Tobacco: Former Cigarettes Smokeless Tobacco: Never Alcohol Use Standard Drinks/Week Comments Not Currently 0 (1 standard drink = 0.6 oz pur e alcohol) [facility] Utilities Answer Date Recorded In the past 12 months has EPIS, gas, oil, or water Come[employer] threatened to shut off services in your [...] time in the past 12 m [facility], were you homeless or living in a [...] AM EST Office Visit Cardiology at [address] [address] Mushtaq Murphy APRN documented as of this encounter Procedures Procedure Name Priority Date/Time Associated Diagnosis Comments XR CHEST ONE VIEW STAT 07/29/2024 10: 50 AM EST documented in this encounter Results * XR Chest One View (07/29/2024 10:50 AM EST) PT CLASS E RAD ADMITDTTM [id number] RAD PT RAD MD INFO [id number]^Albertiss henry^Chaparro RAD EXAM DESC XCXR1^XR Chest 1 [...] have questions please contact the health care transition manager that requested your imaging first. ? [...] who have questions please contactthe health care transition manager that requested your imaging first. Chaparro Montana MD IMG DX ORDERABLES documented in this encounter Visit Diagnoses Not on filedocumented in this encounter Care Teams Machine Adjuster Leader Case Trim Relationship Specialty Start Date End Date Yoel Artis APRN [address] [place] [address] PCP - General Internal Medicine 11/18/22 07/29/24 documented as of this encounter
--- OUTSIDE RECORDS SUMMARY | 2024-09-19 11:36 | XMS_ITS | Encounter Summary ---
[place] [address] Care Team Providers Care Retail Cosmetics Sales Counter Manager Name Role Phone Yoel Artis APRN Primary Care Provider Encounter Details Date Type Department Care Team (Late st Contact Info) Description 12/23/2022 8:20 AM EDT - 12/23/2022 11:59 PM EDT Hospital Encounter [facility] Lab [address] [place] [address] Yoel Artis APRN [address] [place] [address] Discharge Disposition: Home Social History Tobacco Use [...] 10:00 AM EST Office Visit Cardiology at [address] [address] Mushtaq Murphy APRN documented as of this encounter Procedures Procedure Name Priority Date/Time Associated Diagnosis Comments PSA SCREEN Routine 12/23/2022 8:43 AM EDT documented in this encounter Results * (ABNORMAL) PSA Screen (12/23/2022 8:43 AM EDT) PSA Screen 4.37(H) 0.00 - 4.00 ng/mL [facility] Comment: PLEASE NOTE: The above [...] Artis APRN CHEMISTRY ORDERABLES Performing Organization Address City/State/[facility] Co de Phone Number [facility] [place] [address] documented in this encounter Visit Diagnoses Not on filedocumented in this encounter Care Teams Retail Cosmetics Sales Counter Manager Relationship Specialty Start Date End Date Yoel Artis APRN [address] [place] [address] PCP - General Internal Medicine 11/18/22 07/29/24 documented as of this encounter
--- OUTSIDE RECORDS SUMMARY | 2024-09-19 11:36 | XMS_ITS | Encounter Summary ---
[place] [address] Care Team Providers Care Migratory Game Bird Biologist Name Role Phone Anibal Mtz MD Primary Care Provider [phone] Encounter Details Date Type Department Care Team (Late st Contact Info) Description 11/08/2022 [facility] Only [address] [phone] Eve Frost MD [address] [place] [phone] Social History Tobacco Use Types Packs/Day Years [...] AM EST Office Visit Cardiology at [address] [address] Mushtaq Murphy APRN documented as of this encounter Procedures Procedure Name Priority Date/Time Associated Diagnosis Comments XR CHEST PA AND LATERAL STAT 11/08/2022 10:34 AM EST documented in this encounter Results * XR Chest PA & Lateral (Generic) (11/08/2022 10:34 AM EST) PT CLASS E RAD ADMITDTTM RAD PT RAD INFO [id number]^C HANDER^SUNEE R RAD EXAM DESC XCXR2^XR CHEST [...] who have questions please contact the health resident care assistant that requested your imaging first. ? Electronically signed by: Alejandro Tenorio MD, [facility] ([phone]), at 11/08/2022 10:37 AM Narrative 11/08/2022 10:37 [...] patients who have questions please contactthe health resident care assistant that requested your imaging first. Eve Frost MD IMG DX ORDERABLES documented in this encounter Visit Diagnoses Not on filedocumented in this encounter Care Teams Migratory Game Bird Biologist Relationship Specialty Start Date End Date Anibal Mtz MD [address] [place] [address] PCP - General Family Medicine 01/17/19 11/17/22 documented as of this encounter
--- OUTSIDE RECORDS SUMMARY | 2024-09-19 11:36 | XMS_ITS | Encounter Summary ---
Author Organization [facility] [place] [address] Care Team Providers Care Acid Bleacher Name Role Phone Yoel Artis Ute ALCALA Primary Care Provider Encounter Details Date Type Department Care Team (Late st Contact Info) Description 01/16/2024 5:46 PM EDT - 01/16/2024 11:59 PM EDT Hospital Encounter [facility] Lab [address] [place] [address] Chaparro Montana MD [address] [place] [address] Discharge Disposition: Home Social History Tobacco Use [...] evening. 04/17/2023 08/04/2024 nitroGLYcerin (NITROLINGUAL) 400 mcg/spray [place], Non-AerosolIndications:P roctalgia fugax,Fecal smearing,Constipation, unspecified constipation type 1 spray to anus for proctalgia fugax as needed, not to exceed once daily 12 g 06/01/2023 08/04/2024 documented as of this encounter Plan of Treatment Upcoming Encounters Date Type Department Care Team (Late st Contact Info) Description 10/01/2024 10:00 AM EST Office Visit Cardiology at [address] [address] Mushtaq Murphy APRN documented as of this [...] In Lab Chaparro Montana MD MICROBIOLOGY - [facility] ORDERABLES [facility] [place] [address] documented in this encounter Visit Diagnoses Not on filedocumented in this encounter Care Teams Acid Bleacher Relationship Specialty Start Date End Date Yoel Artis APRN [address] [place] [address] PCP - General Internal Medicine 11/18/22 07/29/24 documented as of this encounter
--- OUTSIDE RECORDS SUMMARY | 2024-09-19 11:36 | XMS_ITS | Encounter Summary ---
[place] [address] Care Team Providers Care Endo Tech Name Role Phone Yoel Artis [place] Primary Care Provider [phone] Encounter Details Date Type Department Care Team (Late st Contact Info) Description 08/26/2023 Telephone [place] [address] Madelyn Vasquez Social History Tobacco Use Types [...] - 08/26/2023 9:23 AM EST Korey Montoya [id number] Diagnosis/Indication: Rectal pain, fecal smearing Please review [...] ever had a/an Colonoscopy before? Yes: Date [id number] ago [facility] If yes, did you have [...] your procedure. Who will likely be your driver's education instructor for the procedure? Please Verify the height [...] AM EST Office Visit Cardiology at [address] [address] Mushtaq Murphy APRN documented as of this encounter Visit Diagnoses Not on filedocumented in this encounter Care Teams Endo Tech Relationship Specialty Start Date End Date Yoel Artis APRN [address] [place] [address] PCP - General Internal Medicine 11/18/22 07/29/24 documented as of this encounter
--- OUTSIDE RECORDS SUMMARY | 2024-09-19 11:36 | XMS_ITS | Encounter Summary ---
[place] [address] Care Team Providers Care Legal Transcriptionist Name Role Phone Yoel Artis APRN Primary Care Provider [phone] Reason for Referral * Consultation (Routine) - Closed Specialty Diagnoses / Procedures Referred By Theodore muro Referred To Contact Gastroenterology Diagnoses Anal spasm anal spasm Yoel Artis APRN [address] [place] [address] [facility] [place] [address] Referral ID Status Reason Start Date Expiration Date V isits Requested Visits Authorized [id number] Closed Consult, Test & Treat PCP Updated and/or Approved 05/26/2023 05/25/2024 6 6 Encounter Details Date Type Department Care Team (Late st Contact Info) Description 05/26/2023 Transcribe Orders eDH Incoming Referrals [phone] Yoel Artis APRN [address] [place] [address] Anal spasm Social History Tobacco [...] AM EST Office Visit Cardiology at [address] [address] Mushtaq Murphy APRN Scheduled Referrals Name Type Priority Associated Diagnoses Order Schedule Referral to Gastroenterology Outpatient Referral Routine Anal spasm Ordered: 05/26/2023 documented as of this encounter Visit Diagnoses Diagnosis Anal spasm documented in this encounter Care Teams Legal Transcriptionist Relationship Specialty Start Date End Date Yoel Artis APRN [address] [place] [address] PCP - General Internal Medicine 11/18/22 07/29/24 documented as of this encounter
--- OUTSIDE RECORDS SUMMARY | 2024-09-19 11:36 | XMS_ITS | Encounter Summary ---
[place] [address] Care Team Providers Care Edi Specialist Name Role Phone Yoel Artis [place] Primary Care Provider [phone] Reason for Visit * Auth/Cert (Routine) Specialty Diagnoses / Procedures Referred By Theodore t Referred To Contact Diagnoses Anal spasm Fecal smearing Constipation, unspecified Rectal pain, fecal smearing Procedures PRO COLONOSCOPY, DIAGNOSTIC PRO COLONOSCOPY, BIOPSY PRO COLONOSCOPY, REMV LESN, SNARE COLONOSCOPY, DIAGNOSTIC (WRVU 3.26) Brandan Mcgovern MD [facility] [place] [address] [facility] Referral ID Status Reason Start Date Expiration Date Visits Re quested Visits Authorized [id number] 1 1 Encounter Details Date Type Department Care Team (Late st Contact Info) Description 08/30/2023 11:00 AM EST - 08/30/2023 12:00 PM EST Surgery [place] [address] Brandan Mcgovern MD [facility] [place] [address] COLONOSCOPY, POLYPECTOMY, REMOVAL LESION BY SNARE (WRVU [...] encounter Discharge Instructions * Discharge Instructions* Maldonado Schmitz, RN - 08/30/2023 11:27 AM EST Colonoscopy: [...] occurs, please contact your Doctor. Please call [phone] before 8pm Mon-Fri with problems, questions or concerns. If you call after 8pm or on weekends, call the Hospital at [phone] and ask to speak to the Nondestructive Tester construction ironworker and the waste water operator will contact that person for you. When should you call for help? Call [phone] anytime you think you may need emergency [...] problems. Where can you learn more? [facility] View your After Visit Summary and more online at [email or web address] If you would like to provide feedback about your hospital experience, please call the Office of Patient and Family Relations at . If you have received this After Visit Summary in error, please immediately return it in person to the department, or notify the [facility] Privacy Office by calling toll free at between the hours of 8AM and 5PM to arrange for our retrieval of the documents at no cost to you. Content Version: 12.2 ?? [phone] [employer]. Care instructions adapted under license by [facility]. If you have questions about a medical condition or this instruction, always ask your healthcare professional. [employer] disclaims any warranty or liability for your [...] evening. 04/17/2023 08/04/2024 nitroGLYcerin (NITROLINGUAL) 400 mcg/spray [place], Non-AerosolIndications:P roctalgia fugax,Fecal smearing,Constipation, unspecified constipation type [...] AM EST Office Visit Cardiology at [address] [address] Mushtaq Murphy APRN documented as of this encounter Procedures Procedure Name Priority Date/Time Associated Diagnosis Comments SPECIMEN TO PATHOLOGY Routine 08/30/2023 11:23 AM EST SURGICAL PATHOLOGY REPORT Routine 08/30/2023 11:21 AM EST COLONOSCOPY Routine 08/30/2023 10:57 AM EST Colonoscopy, Remv Avril, Snare ([id number]) 08/30/2023 10:44 AM EST Proctalgia fugax Fecal smearing Constipation, unspecified constipation type documented in this encounter Results * Specimen to Pathology (08/30/2023 11:23 AM EST) AP Specimen 08/30/2023 11:2 3 AM EST 08/30/2023 11:23 AM EST Narrative [facility] - 08/30/2023 11:23 AM EST Specimen requisition ordered. ??Separate Pathology report to follow Brandan Mcgovern MD PATHOLOGY/CYTOLOGY O JOSH Performing Organization Address [facility]/ZIP Co de Phone Number [facility] [place] [address] * Surgical Pathology Report (08/30/2023 11:21 AM EST) Final Diagnosis [id number] ? Location: 4T; EA12; A The signing pathologist has (i) examined the relevant preparation(s) for the specimen(s) and (ii) rendered or confirmed the diagnosis(es). . ?Surgical Pathology DIAGNOSIS A - Sigmoid colon polyp, resection (Multiple): - ??Tubular adenoma. CR-PX Electronically signed by: ?Blake ORTEGA PhD, Yulia Verified: ??09/08/2023 14:48 ??Pathologist Performed at: ??-[facility] Dept. of Pathology, [place] [address] Field Cane Scale Clerk: Fercho Chan MD, AP, ??CLIA Certificate: [id number] SPECIMEN(S) SUBMITTED A - Sigmoid colon polyp, resection (Multiple) CLINICAL INFORMATION 73-year-old male, history of rectal pain SPECIMEN PROCESSING A - Labeled/Fixativ e: Sigmoid colon polyp, formalin. Quantity/Size: Single, 0.8 cm. Tissue Description: Soft, candelaria tissue. Sections/Proces sing: Submitted in toto ??in 1 cassette labeled A1. ??sdy 09/08/2023 2:48 PM EST [facility] GI Biopsy 08/30/2023 11:2 1 AM EST 08/30/2023 11:21 AM EST Brandan Mcgovern MD PATHOLOGY/CYTOLOGY O JOSH [facility] [place] [address] [place] [address] * COLONOSCOPY (08/30/2023 10:57 AM EST) [facility] Signature COLONOSCOPY [facility] Endoscopy Procedure Date: 08/30/2023 10:57 AM ? Patient Name: Koery Montoya ? Date of : 1950 ? Age: 73 ? Order #: [id number] ? Instrument Name: [id number] ? Procedure: ? Colonoscopy Indications: ? Rectal [...] preparation was evaluated ? using the BBPS ([place] Bowel ? Preparation Scale) with scores of: [...] Provider: Tika Fowler RN)1100 (Given - Provider: iTka Fowler RN)1106 (Given - Provider: Tika Fowler RN) documented in this encounter Care Teams Edi Specialist Relationship Specialty Start Date End Date Yoel Artis APRN [address] [place] [address] PCP - General Internal Medicine 11/18/22 07/29/24 documented as of this encounter
--- OUTSIDE RECORDS SUMMARY | 2024-09-19 11:36 | XMS_ITS | Encounter Summary ---
[place] [address] Care Team Providers Care Tunnel Mucker Name Role Phone Yoel Artis APRN Primary Care Provider Encounter Details Date Type Department Care Team (Late st Contact Info) Description 03/01/2023 9:30 AM EDT - 03/01/2023 11:59 PM EDT Hospital Encounter [facility] Lab [address] [place] [address] Yoel Artis APRN [address] [place] [address] Discharge Disposition: Home Social History Tobacco Use [...] AM EST Office Visit Cardiology at [address] [address] Mushtaq Murphy APRN documented as of this encounter Procedures Procedure Name Priority Date/Time Associated Diagnosis Comments PSA (ULTRASENSITIVE) Routine 03/01/2023 9:38 AM EDT documented in this encounter Results * (ABNORMAL) PSA (Ultrasensitive) (03/01/2023 9:38 AM EDT) Prostate Specific Antigen (Ultrasensitive) 5.09(H) 0.00 - 4.00 ng/mL [facility] Comment: PLEASE NOTE: The [...] In Lab Yoel Artis APRN CHEMISTRY ORDERABLES [facility] [place] [address] documented in this encounter Visit Diagnoses Not on filedocumented in this encounter Care Teams Tunnel Mucker Relationship Specialty Start Date End Date Yoel Artis APRN [address] [place] [address] PCP - General Internal Medicine 11/18/22 07/29/24 documented as of this encounter
--- OUTSIDE RECORDS SUMMARY | 2024-09-19 11:36 | XMS_ITS | Encounter Summary ---
Author Organization [facility] [place] [address] Care Team Providers Care New Car Get Ready Mechanic Name Role Phone Alexia Mtz PERSONNEL WORKER Primary Care Provider [phone] Encounter Details Date Type Department Care Team (Late st Contact Info) Description 04/23/2024 Lab [place] [address] Alexia Mtz, PERSONNEL WORKER [address] [place], [place] [id number] Elevated prostate specific antigen (PSA) Social History [...] AM EST Office Visit Cardiology at [address] [address] Mushtaq Murphy APRN documented as of this encounter Procedures Procedure Name Priority Date/Time Associated Diagnosis Comments PSA (ULTRASENSITIVE), TOTAL AND FREE Routine 04/23/2024 1:09 PM EDT Elevated prostate specific antigen (PSA) documented in this encounter Results * (ABNORMAL) PSA (Ultrasensitive), total and free (04/23/2024 1:09 PM EDT) Prostate Specific Antigen (Ultrasensitive) 5.24(H) 0.00-4.00 ng/mL ng/ml 04/23/2024 5:18 PM EDT [facility] Comment:The reference interv al (0 [...] Free 1.1 ng/ml 04/23/2024 5:18 PM EDT [facility] Comment:This result was gene rated using a [employer] Osiel immunoassay. Results obtained from other methods or manufacturers cannot be used interchangeably with this method. PSA % Free 21 % 04/23/2024 5:18 PM EDT [facility] Comment: Probability of finding GOLD ASSAYER on needle biopsy by age in years: % fPSA ? 50-59yrs ?? 60-69yrs ? >=70yrs ?? <=10 ?49.2 ?57.5 ?64.5 ?? 11-18 ? 26.9 ?33.9 ?40.8 ?? 19-25 ? 18.3 ?23.9 ?29.7 ?? >25 ?9.1 ?12.2 ?15.8 ?? This result was generated using a [employer] Osiel immunoassay. ??Results obtained from other methods or manufacturers cannot be used interchangeably with this method. Blood VENOUS BLOOD SPECIMEN / Unknown 04/23/2024 1:09 PM EDT 04/23/2024 4:50 PM EDT Alexia Mtz APRN CHEMISTRY ORDERABLES [facility] [address] documented in this encounter Visit Diagnoses Diagnosis Elevated prostate specific antigen (PSA) documented in this encounter Care Teams New Car Get Ready Mechanic Relationship Specialty Start Date End Date Alexia Mtz APRN [address] [place] [address] PCP - General Family Medicine 07/30/24 documented as of this encounter
--- OUTSIDE RECORDS SUMMARY | 2024-09-19 11:36 | XMS_ITS | Encounter Summary ---
[place] [address] Care Team Providers Care Ebay Reseller Name Role Phone Yoel Artis APRN Primary Care Provider [phone] Reason for Referral * Consultation (Routine) - Closed Specialty Diagnoses / Procedures Referred By Theodore muro Referred To Contact Gastroenterology Diagnoses Anal spasm motility- anal spasms Yoel Artis APRN [address] [place] [address] [facility] [place] [address] [address] Referral ID Status Reason Start Date Expiration Date V isits Requested Visits Authorized [id number] Closed Consult, Test & Treat PCP Updated and/or Approved 11/18/2022 11/18/2023 6 6 Encounter Details Date Type Department Care Team (Late st Contact Info) Description 11/18/2022 Transcribe Orders eDH Incoming Referrals [phone] Yoel Artis APRN [address] [place] [address] Anal spasm Social History Tobacco [...] AM EST Office Visit Cardiology at [address] [address] Mushtaq Murphy APRN Scheduled Referrals Name Type Priority Associated Diagnoses Order Schedule Referral to Gastroenterology Outpatient Referral Routine Anal spasm Ordered: 11/18/2022 documented as of this encounter Visit Diagnoses Diagnosis Anal spasm documented in this encounter Care Teams Ebay Reseller Relationship Specialty Start Date End Date Yoel Artis APRN [address] [place] [address] PCP - General Internal Medicine 11/18/22 07/29/24 documented as of this encounter
--- OUTSIDE RECORDS SUMMARY | 2024-09-19 11:36 | XMS_ITS | Encounter Summary ---
Author Organization [facility] Address [facility] [place] [address] Care Team Providers Care Automatic Buffer Name Role Phone Unknown Primary Care Provider Unavailabl e Encounter Details Date Type Department Care Team (Late st Contact Info) Description 01/13/2019 9:05 PM EDT Ancillary Procedure Radiology Library at [facility] [place] [phone] Sunny Aviles MD [facility] [place] [address] Social History Tobacco Use Types Packs/Day Years [...] AM EST Office Visit Cardiology at [address] [place] [address] Mushtaq Murphy APRN documented as of this [...] Sunny Aviles MD IMG FILM LIBRARY ORDERABLES Performing Organization Address City/State/[facility] Co de Phone Number [place], [place] documented in this encounter Visit Diagnoses Not on filedocumented in this encounter Care Teams Automatic Buffer Relationship Specialty Start Date End Date Unknown None PCP - General 08/04/10 01/16/19 documented as of this encounter
--- OUTSIDE RECORDS SUMMARY | 2024-09-19 11:36 | XMS_ITS | Encounter Summary ---
Author Organization [facility] [place] [address] Care Team Providers Care Program Development Manager Name Role Phone Yoel Artis APRN Primary Care Provider Reason for Referral * Consultation (Routine) - Closed Specialty Diagnoses / Procedures Referred By Theodore muro Referred To Contact Gastroenterology Diagnoses Proctalgia fugax Fecal smearing Constipation, unspecified constipation type group Yoel Dangelo APRN [facility] [place] [address] Paulette Glynn, PhD [facility] [place] [address] Referral ID Status Reason Start Date Expiration Date V isits Requested Visits Authorized [id number] Closed Consult, Test & Treat 06/01/2023 05/31/2024 1 1 Reason for Visit * Consultation (Routine) - Closed Specialty Diagnoses / Procedures Referred By Theodore muro Referred To Contact Gastroenterology Diagnoses Anal spasm motility- anal spasms Yoel Artis APRN [address] [place] [address] [facility] [place] [address] [address] Referral ID Status Reason Start Date Expiration Date V isits Requested Visits Authorized [id number] Closed Consult, Test & Treat PCP Updated and/or Approved 11/18/2022 11/18/2023 6 6 Encounter Details Date Type Department Care Team (Latest Contact Info) Description 06/01/2023 8:00 AM EDT TH Visit (TeleHealth) [place] [address] Yoel Dangelo, CONSERVATION POLICY ANALYST [facility] [place] [address] Proctalgia fugax; Fecal smearing; Constipation, unspecified constipation [...] hear from us within 1 week: Clinic [phone] Motility Lab scheduling [phone] Endoscopy scheduling- [phone] Diagnostics: -Colonoscopy for rectal pain -Anorectal manometry [...] connection and our services, please visit the [facility] Behavioral health website at: [email or web address]. Our hope is that through these classes, [...] the [facility] billing office ([email or web address]). Your insurance company may request a CPT code if you ask about coverage. [place] [address]. If you're interested in attending any of these classes or workshops, please reach out to our scheduling team via [facility] or phone ([phone]). You should start a fiber supplement if [...] Handout for Patients and Primary Care Providers [facility] Gastrointestinal Motility, Esophageal, and Swallowing Disorders Center What are functional bowel disorders? These are the most common type of gastrointestinal disorders in the [facility] The most common functional bowel disorder in the [facility] is irritable bowel syndrome (IBS) Irritable bowel [...] what is the impact? 15-20% of general [place] population has IBS or FD or both 2nd most common cause for lost work days (after common cold) in [place] Estimated $30 billion dollar cost to [place] economy per year These disorders can have [...] with immediate onset of symptoms after infection); intermodal truck driver symptoms are expected in most patients however [...] to you primary care provider and/or local dovetail machine operator and share this document. Treatment [...] - this approach benefits most patients OTC (igcy-kty-pzagfaj) medications can be used for ongoing bothersome symptoms as listed below Your provider (PCP or local Gastroenterology provider or - Gastroenterology provider) may decide to use prescription [...] All-Bran psyllium buds, Metamucil, Konsyl, bulk psyllium ([employer] and [employer] stores) Specifically we recommend starting Metamucil or [...] but convincing medical evidence is still lacking Zgyf-lmm-ojyaptj supplements including probiotics are not typically evaluated by FDA. The quality and even safety is often unclear and many products (despite being very expensive) actually do not contain any active ingredients at all! Live-culture yogurts, kombucha, sauerkraut and other dietary sources may help improve your microbiome Ugo, TuDuane, and Visbiome are the three probiotics that are supported by medical research to have benefit for IBS Florastor has been shown to decrease antibiotic-associated diarrhea and post- infectious diarrhea BioK Plus has been shown to decrease antibiotic-associated diarrhea and antibiotic-related infections Gwnp-hzr-Ajaqxrk Medications for Functional Gut Disorders Based on [...] a stool softener that is safe for intermodal truck driver usage (no risk of dependency) andthe dosage [...] (GERD) Often a combination of anti-nausea medications (ftac-zme-mhdukqm or prescription) works better thanhigh doses of [...] for misuse/misinterpretation of this information Patient Resources [place] [employer] https://www.gastro.org/practice-guidance/ob-lmmejhz-lyfkpt/ topic/efzyoqmyp-oetmo-fzrsjlal-ibs Badgut.org https://badgut.org/information-centre/a-c-lauqlvqlt-topics/ibs/ AboutIBS.org https://www.aboutibs.org/ Uptodate.com https://www.uptodate.com/contents/jylmqizpe-zotcv-tosrqiku-znaxiz-kcn-bkysiu documented in this encounter Progress Notes * [...] loss Last colo [address] [facility] with no polyps. Current Regimen: [...] above. The patient was located in [place] at the time of their visit. TIME SPENT WITH PATIENT Time spent reviewing records prior to this encounter on day of appointment: 2 minutes Time spent during encounter with patient including counselin minutes Time spent documenting encounter after office visit: 7 minutes Yoel Dangelo APRN [facility] [place] [address] documented in this encounter Plan of Treatment Upcoming Encounters Date Type Department Care Team (Late st Contact Info) Description 10/01/2024 10:00 AM EST Office Visit Cardiology at [address] [place] [address] Mushtaq Murphy APRN Scheduled Orders Name Type [...] type documented in this encounter Care Teams Program Development Manager Relationship Specialty Start Date End Date Yoel Artis APRN [address] [place] [address] PCP - General Internal Medicine 11/18/22 07/29/24 documented as of this encounter
--- OUTSIDE RECORDS SUMMARY | 2024-09-19 11:36 | XMS_ITS | Encounter Summary ---
Author Organization [facility] Address [facility] [place] [address] Care Team Providers Care Switchboard Mechanic Name Role Phone Yoel Artis APRN Primary Care Provider [phone] Encounter Details Date Type Department Care Team (Latest Contact Info) Description 11/30/2023 8:00 AM EDT TH Visit (TeleHealth) [place] [address] Yoel Dangelo APRN [facility] [place] [address] Proctalgia fugax; Constipation, unspecified constipation type Social [...] Bath: Sitz bath's are available in most [place] [facility]. They work by improving blood flow and [...] Handout for Patients and Primary Care Providers [facility] Gastrointestinal Motility, Esophageal, and Swallowing Disorders Center What are functional bowel disorders? These are the most common type of gastrointestinal disorders in the [facility] The most common functional bowel [...] what is the impact? 15-20% of general [place] population has IBS or FD or both 2nd most common cause for lost work days (after common cold) in [place] Estimated $30 billion dollar cost to [place] economy per year These disorders can have [...] with immediate onset of symptoms after infection); chcf symptoms are expected in most patients however [...] to you primary care provider and/or local professional skater and share this document. Treatment of functional [...] - this approach benefits most patients OTC (lftd-ojt-muwqkxo) medications can be used for ongoing bothersome symptoms as listed below Your provider (PCP or local Gastroenterology provider or [facility] Gastroenterology provider) may decide to use prescription [...] All-Bran psyllium buds, Metamucil, Konsyl, bulk psyllium ([employer] stores and [employer] stores) Specifically we recommend starting Metamucil [...] but convincing medical evidence is still lacking Rnvk-vwg-mptozkv supplements including probiotics are not typically evaluated [...] to decrease antibiotic-associated diarrhea and antibiotic-related infections Iyvn-btl-Nuwzbrg Medications for Functional Gut Disorders Based on [...] stool softener that is safe for termite inspector usage (no risk of dependency) andthe dosage [...] (GERD) Often a combination of anti-nausea medications (agwj-ata-behudsj or prescription) works better thanhigh doses of [...] for misuse/misinterpretation of this information Patient Resources [place] [employer] https://www.gastro.org/practice-guidance/wz-wreaurh-djmsei/ topic/zhnjdrwoi-rcdsb-adfopugz-ibs Badgut.org https://badgut.org/information-centre/o-l-nwbeaumdb-topics/ibs/ AboutIBS.org https://www.aboutibs.org/ Uptodate.com https://www.uptodate.com/contents/ibxyoqlgp-glsno-efqubqhw-ojkkal-yqm-nxwvgw documented in this encounter Progress Notes * [...] Take by mouth. nitroGLYcerin (NITROLINGUAL) 400 mcg/spray [place], Non-Aerosol 1 spray to anus for proctalgia fugax as needed, not to exceed once daily 12 g 0 No facility-administered medications prior to visit. Allergies: has No Known Allergies. Past Medical History: has a past medical history of ADHD, HLD (hyperlipidemia), HTN (hypertension),and Tremor. Past Surgical History: has a past surgical history that includes Hand surgery and Colonoscopy, Antonieta Pfeiffer ([id number]) (N/A, 08/30/2023). Family History: family history is [...] for re-evaluation. The patient was located in [place] at the time of their visit. Yoel Dangelo [place] [facility] [place] [address] documented in this encounter Miscellaneous Notes * Addendum Note - Yoel Dangelo APRN - 11/30/2023 8:00 AM EDTAddended by: YOEL DANGELO on: 11/30/2023 08:46 AM Modules accepted: Level of Service documented in this encounter Plan of Treatment Upcoming Encounters Date Type Department Care Team (Late st Contact Info) Description 10/01/2024 10:00 AM EST Office Visit Cardiology at [address] [address] Mushtaq Murphy APRN documented as of this encounter Visit Diagnoses Diagnosis Proctalgia fugax Anal spasm Constipation, unspecified constipation type documented in this encounter Care Teams Switchboard Mechanic Relationship Specialty Start Date End Date Yoel Artis APRN [address] [place] [address] PCP - General Internal Medicine 11/18/22 07/29/24 documented as of this encounter
--- OUTSIDE RECORDS SUMMARY | 2024-09-19 11:36 | XMS_ITS | Encounter Summary ---
[place] [address] Care Team Providers Care Exploitation Analyst Name Role Phone Alexia Mtz AGRICULTURAL ADVISER Primary Care Provider [phone] Encounter Details Date Type Department Care Team (Late st Contact Info) Description 06/25/2024 Lab [place] [address] Aubrey Cali MD [address] [place] [address] [id number] Pyuria Social History Tobacco Use Types Packs/Day [...] AM EST Office Visit Cardiology at [address] [phone] Mushtaq Murphy APRN documented as of this [...] AL ORDERABLES [facility] [place] [address] documented in this encounter Visit Diagnoses Diagnosis Pyuria Other nonspecific finding on examination of urine documented in this encounter Care Teams Exploitation Analyst Relationship Specialty Start Date End Date Alexia Mtz APRN [address] [place] [address] PCP - General Family Medicine 07/30/24 documented as of this encounter
--- OUTSIDE RECORDS SUMMARY | 2024-09-19 11:36 | XMS_ITS | Encounter Summary ---
[place] [address] Care Team Providers Care Duplicating Machine Operator Name Role Phone Anibal Mtz MD Primary Care Provider [phone] Encounter Details Date Type Department Care Team (Late st Contact Info) Description 01/18/2019 3:00 PM EDT Interpretation Only Cardiology at [address] [address] Alberto Powell Jr., MD Dizziness Social History [...] AM EST Office Visit Cardiology at [address] [address] Mushtaq Murphy APRN documented as of this [...] giddiness documented in this encounter Care Teams Duplicating Machine Operator Relationship Specialty Start Date End Date Anibal Mtz MD [address] [place] [address] PCP - General Family Medicine 01/17/19 11/17/22 documented as of this encounter
--- OUTSIDE RECORDS SUMMARY | 2024-09-19 11:36 | XMS_ITS | Encounter Summary ---
[place] [address] Care Team Providers Care Employment Specialist/Program Manager Name Role Phone Unknown Primary Care Provider Unavailabl e Encounter Details Date Type Department Care Team (Late st Contact Info) Description 12/03/2018 Interpretation Only [address] [address] Ac Albrecht PA [address] [place] [address] [place] [address] Social History Tobacco Use Types Packs/Day Years [...] AM EST Office Visit Cardiology at [address] [address] Mushtaq Murphy, RN TRAVEL documented as of this encounter Procedures Procedure [...] below. ? Electronically signed by: Darvin Noyola [facility] ([phone]), at 12/03/2018 1:33 PM Narrative 12/03/2018 1:38 PM EDT EXAMINATION: XR Finger(s) 2 Views Min Lt CLINICAL HISTORY: laceration by circular saw TECHNIQUE: 3 views of the left hand COMPARISON: None FINDINGS: No fracture or dislocation. The alignment is normal. Visualized joint spaces are preserved. Procedure Note Davrin Noyola MD - 12/03/2018 EXAMINATION: XR Finger(s) [...] number below. Electronically signed by: Darvin Noyola [facility]([phone]), at 12/03/2018 1:33 PM Ac SERRANO IMG DX ORDERABLES documented in this encounter Visit Diagnoses Not on filedocumented in this encounter Care Teams Employment Specialist/Program Manager Relationship Specialty Start Date End Date Unknown None PCP - General 08/04/10 01/16/19 documented as of this encounter
--- OUTSIDE RECORDS SUMMARY | 2024-09-19 11:36 | XMS_ITS | Encounter Summary ---
[place] [address] Care Team Providers Care Pediatric Critical Care Nurse Name Role Phone Yoel Artis FREDRICK Primary Care Provider [phone] Encounter Details Date Type Department Care Team (Late st Contact Info) Description 01/16/2024 Interpretation Only [facility] [address] [place] [address] Chaparro Montana MD [address] [place] [address] Social History Tobacco Use Types Packs/Day Years [...] AM EST Office Visit Cardiology at [address] [address] Mushtaq Murphy APRN documented as of this encounter Procedures Procedure Name Priority Date/Time Associated Diagnosis Comments CT HEAD WO CONTRAST (GENERIC) STAT 01/16/2024 4:17 PM EDT documented in this encounter Results * CT Head wo Contrast (Generic) (01/16/2024 4:17 PM EDT) PT CLASS E RAD ADMITDTTM [id number] [facility] PT RAD INFO [id number]^Haniss henry^Chaparro RAD EXAM DESC CTHEAD^CT Head w/o Contrast^RIS [facility] WORKSTATION ID [id number] [facility] Anatomical Region Laterality Modality Head Computed Tomogra phy 01/16/2024 4:03 PM EDT Impressions 01/16/2024 4:25 PM EDT No acute intracranial pathology. Thank you for letting us participate in the care of this patient. ??If you are a health care provider and have any questions regarding this report, please contact the number below. ??For patients who have questions please contact the health post acute care nurse that requested your imaging first. ? Electronically signed by: Alejandro Tenorio MD, [facility] ([phone]), at 01/16/2024 4:25 PM Narrative 01/16/2024 4:25 [...] patients who have questions please contactthe health post acute care nurse that requested your imaging first. Chaparro Montana MD IMG CT ORDERABLES documented in this encounter Visit Diagnoses Not on filedocumented in this encounter Care Teams Pediatric Critical Care Nurse Relationship Specialty Start Date End Date Yoel Artis APRN [address] [place] [address] PCP - General Internal Medicine 11/18/22 07/29/24 documented as of this encounter
--- OUTSIDE RECORDS SUMMARY | 2024-09-19 11:36 | XMS_ITS | Encounter Summary ---
[place] [address] Care Team Providers Care Economic Specialist Name Role Phone Yoel Artis APRN Primary Care Provider [phone] Reason for Referral * Consultation (Routine) - Closed Specialty Diagnoses / Procedures Referred By Theodore muro Referred To Contact Urology Diagnoses Raised prostate specific antigen PERSISTENTLY MILDLY ELEVATED PSA, URINARY FREQ Yoel Artis APRN [address] [place] [address] [facility] [place] [address] Referral ID Status Reason Start Date Expiration Date V isits Requested Visits Authorized [id number] Closed Consult, Test & Treat PCP Updated and/or Approved 07/30/2023 07/29/2024 6 6 Encounter Details Date Type Department Care Team (Late st Contact Info) Description 07/30/2023 Transcribe Orders eDH Incoming Referrals [phone] Yoel Artis APRN [address] [place] [address] Raised prostate specific antigen Social History Tobacco [...] AM EST Office Visit Cardiology at [address] [address] Mushtaq Murphy APRN Scheduled Referrals Name Type Priority Associated Diagnoses Orde r Schedule Referral to Urology Outpatient Referral Routine Raised prostate specific antigen Ordered: 07/30/2023 documented as of this encounter Visit Diagnoses Diagnosis Raised prostate specific antigen Elevated prostate specific antigen (PSA) documented in this encounter Care Teams Economic Specialist Relationship Specialty Start Date End Date Yoel Artis APRN [address] [place] [address] PCP - General Internal Medicine 11/18/22 07/29/24 documented as of this encounter
--- OUTSIDE RECORDS SUMMARY | 2024-09-19 11:36 | XMS_ITS | Encounter Summary ---
Author [place] [address] Care Team Providers Care Tie Tamper Name Role Phone Yoel Artis FREDRICK Primary Care Provider [phone] Encounter Details Date Type Department Care Team (Late st Contact Info) Description 01/16/2024 Interpretation Only [facility] [address] [place] [address] Chaparro Montana MD [address] [place] [address] Social History Tobacco Use Types Packs/Day Years [...] AM EST Office Visit Cardiology at [address] [address] Mushtaq Murphy APRN documented as of this encounter Procedures Procedure Name Priority Date/Time Associated Diagnosis Comments XR CHEST ONE VIEW STAT 01/16/2024 4:0 4 PM EDT documented in this encounter Results * XR Chest One View (01/16/2024 4:04 PM EDT) PT CLASS E RAD ADMITDTTM [id number] RAD PT RAD INFO [id number]^Haniss henry^Chaparro RAD EXAM DESC XCXR1^XR Chest 1 View^RIS RAD WORKSTATION ID [id number] [facility] Anatomical Region Laterality Modality Chest N/A Radiographic Farida ging 01/16/2024 4:04 PM EDT Impressions 01/16/2024 4:08 PM EDT No active cardiopulmonary disease. Thank you for letting us participate in the care of this patient. ??If you are a health care provider and have any questions regarding this report, please contact the number below. ??For patients who have questions please contact the health school childcare attendant that requested your imaging first. ? [...] patients who have questions please contactthe health school childcare attendant that requested your imaging first. Electronically signed by: Alexey Winslow MD, [facility]([phone]), at 01/16/2024 4:08 PM Chaparor Montana MD IMG DX ORDERABLES documented in this encounter Visit Diagnoses Not on filedocumented in this encounter Care Teams Tie Tamper Relationship Specialty Start Date End Date Yoel Artis APRN [address] [place] [address] PCP - General Internal Medicine 11/18/22 07/29/24 documented as of this encounter
--- OUTSIDE RECORDS SUMMARY | 2024-09-19 11:36 | XMS_ITS | Encounter Summary ---
Author Organization [facility] [place] [address] Care Team Providers Care Chemical Plant Technical Director Name Role Phone Yoel Artis Ute ALCALA Primary Care Provider [phone] Reason for Visit * Auth/Cert (Routine) Specialty Diagnoses / Procedures Referred By Theodore t Referred To Contact Diagnoses Anal spasm Fecal smearing Constipation, unspecified Rectal pain, fecal smearing Procedures PRO COLONOSCOPY, DIAGNOSTIC PRO COLONOSCOPY, BIOPSY PRO COLONOSCOPY, REMV LESN, SNARE COLONOSCOPY, DIAGNOSTIC (WRVU 3.26) Brandan Mcgovern MD [facility] [place] [address] [facility] Referral ID Status Reason Start Date Expiration Date Visits Re quested Visits Authorized [id number] 1 1 Encounter Details Date Type Department Care Team (Latest Contact Info) Description 08/30/2023 10:09 AM EST - 08/30/2023 12:19 PM [facility] Encounter [place] [address] Brandan Mcgovern MD [facility] [place] [address] Discharge Disposition: Home Social History Tobacco Use [...] occurs, please contact your Doctor. Please call [phone] before 8pm Mon-Fri with problems, questions or concerns. If you call after 8pm or on weekends, call the Hospital at [phone] and ask to speak to the Automotive General Manager retail zone specialist and the 411 directory assistance operator will contact that person for you. When should you call for help? Call [phone] anytime you think you may need emergency [...] Where can you learn more? [facility] View your After Visit Summary and more online at [email or web address] If you would like to provide feedback about your hospital experience, please call the Office of Patient and Family Relations at . If you have received this After Visit Summary in error, please immediately return it in person to the department, or notify the [facility] Privacy Office by calling toll free at between the hours of 8AM and 5PM to arrange for our retrieval of the documents at no cost to you. Content Version: 12.2 ?? [id number] [employer]. Care instructions adapted under license by [facility]. If you have questions about a medical condition or this instruction, always ask your healthcare professional. [employer] disclaims any warranty or liability for your [...] evening. 04/17/2023 08/04/2024 nitroGLYcerin (NITROLINGUAL) 400 mcg/spray [place], Non-AerosolIndications:P roctalgia fugax,Fecal smearing,Constipation, unspecified constipation type [...] AM EST Office Visit Cardiology at [address] [address] Mushtaq Murphy APRN documented as of this encounter Procedures Procedure Name Priority Date/Time Associated Diagnosis Comments SPECIMEN TO PATHOLOGY Routine 08/30/2023 11:23 AM EST SURGICAL PATHOLOGY REPORT Routine 08/30/2023 11:21 AM EST COLONOSCOPY Routine 08/30/2023 10:57 AM EST Colonoscopy, Remv Jonin, Snare ([id number]) 08/30/2023 10:44 AM EST Proctalgia fugax Fecal smearing Constipation, unspecified constipation type documented in this encounter Results * Specimen to Pathology (08/30/2023 11:23 AM EST) AP Specimen 08/30/2023 11:2 3 AM EST 08/30/2023 11:23 AM EST Narrative [facility] - 08/30/2023 11:23 AM EST Specimen requisition ordered. ??Separate Pathology report to follow Brandan Mcgovern MD PATHOLOGY/CYTOLOGY O RDKAY Performing Organization Address [facility] Co de Phone Number [facility] [place] [phone] * Surgical Pathology Report (08/30/2023 11:21 AM EST) Final Diagnosis [id number] ? Location: 4T; EA12; A The signing pathologist has (i) examined the relevant preparation(s) for the specimen(s) and (ii) rendered or confirmed the diagnosis(es). . ?Surgical Pathology DIAGNOSIS A - Sigmoid colon polyp, resection (Multiple): - ??Tubular adenoma. CR-PX Electronically signed by: ?Blake ORTEGA PhD, Yulia Verified: ??09/08/2023 14:48 ??Pathologist Performed at: ??-[facility] [place], [place] [address] Process Worker: Fercho Chan MD, FCAP, ??CLIA Certificate: [id number] SPECIMEN(S) SUBMITTED A - Sigmoid colon polyp, [...] MD PATHOLOGY/CYTOLOGY O JOSH Performing Organization Address City/[facility]/ZIP Co de Phone Number [facility] [place] [phone] [place] [address] * COLONOSCOPY (08/30/2023 10:57 AM EST) COLONOSCOPY [facility] Procedure Date: 08/30/2023 10:57 AM ? Patient Name: Korey Montoya ? Date of : 1950 ? Age: 73 ? Order #: [id number] ? Instrument Name: [id number] ? Procedure: ? Colonoscopy Indications: ? Rectal [...] preparation was evaluated ? using the BBPS ([employer] Bowel ? Preparation Scale) with scores of: [...] Fowler, RENEA)1049 (Given - Provider: Tika Fowler, RENEA)1057 (Given - Provider: Tika Fowler, RENEA)1059 (Given - Provider: Tika Fowler, RN)1102 (Given - Provider: Tika Fowler, RN) midazolam [...] RN) documented in this encounter Care Teams Chemical Plant Technical Director Relationship Specialty Start Date End Date Yoel Artis APRN [address] [place] [id number] PCP - General Internal Medicine 11/18/22 07/29/24 documented as of this encounter
--- OUTSIDE RECORDS SUMMARY | 2024-09-21 11:28 | XMS_ITS | Encounter Summary ---
[place] [address] Care Team Providers Care Retail Center Receptionist Name Role Phone Alexia Mtz FREDRICK Primary Care Provider [phone] Encounter Details Date Type Department Care Team (Late st Contact Info) Description 09/21/2024 External Results [place] [phone] Social History Tobacco Use Types Packs/Day Years [...] AM EST Office Visit Cardiology at [address] [address] Mushtaq Murphy APRN documented as of this encounter Procedures Procedure Name Priority Date/Time Associated Diagnosis Comments EEG SCAN Routine 07/29/2024 9:44 AM EST documented in this encounter Results * Scan Doc: EEG (07/29/2024 9:44 AM EST) Historical Provider MD MEDIA MGR SCAN EX T ORDR/RSLT documented in this encounter Visit Diagnoses Not on filedocumented in this encounter Care Teams Retail Center Receptionist Relationship Specialty Start Date End Date Alexia Mtz APRN [address] [place] [address] PCP - General Family Medicine 07/30/24 documented as of this encounter
--- OUTSIDE RECORDS SUMMARY | 2024-09-21 11:28 | XMS_ITS | Clinical Summary ---
Author Organization [facility] Address [facility] [place] [address] Care Team Providers Care Residential Framing Carpenter Name Role Phone Alexia Mtz FREDRICK Primary Care Provider [phone] Allergies No known active allergies Medications Medication [...] Encounters Date Type Department Care Team Description 09/21/2024 External Results [place] [address] 07/31/2024 4:30 PM EST - 07/31/2024 5:30 PM EST [place] [address] Maldonado Luis MD CARDIAC CATHETERIZATION 07/29/2024 6:32 PM EST - 07/29/2024 11:59 PM EST Hospital Encounter [facility] at [address] [phone] Arvin Becerra MD Discharge Disposition: Home 07/29/2024 12:00 PM EST - 07/29/2024 12:54 PM EST [place] [address] Vahe Marvin MD CARDIAC CATHETERIZATION 07/29/2024 11:45 AM EST - 08/04/2024 5:00 PM EST Hospital [place] [address] Vahe Marvin MD Dadekian, Gregory A, MD Welch, Terrence D, MD Vinod, Poornima, MD Kostojchin, Anastas, MD Kussaga, Frank M, MD ST elevation myocardial infarction involving left anterior descending (LAD) coronary artery; HFrEF (heart failure with reduced ejection fraction) Discharge Disposition: Home 07/29/2024 Orders [place] [address] Susannah Watts PA 07/29/2024 Interpretation Only [address] [address] Deondre Ferrera MD 07/29/2024 [place] [address] Ivan Hernandez MD 07/29/2024 External [place] [phone] 07/28/2024 Interpretation Only [address] [id number] Quinten Coffey MD 06/25/2024 [place] [phone] Aubrey Cali MD Pyuria from Last 3 [...] oz pur e alcohol) [facility] Utilities Answer Date Recorded In the past 12 months has th e [employer], gas, oil, or water [employer] threatened to shut off services in your [...] AM EST Office Visit Cardiology at [address] [address] Mushtaq Murphy, FREDRICK Health Maintenance Due Date [...] CARDIOLOGY RESULT Routine 07/29/2024 10:13 AM EST EEG SCAN Routine 07/29/2024 9:44 AM EST XR CHEST ONE VIEW STAT [...] MD HEMATOLOGY ORDERABLE S Performing Organization Address City/[facility]/ZIP Co de Phone Number [facility] [place] [address] * Magnesium (08/04/2024 6:08 AM EST) Only the most recent of8 resultswithin the time period is included. Magnesium 0.85 0.69 - 1.07 mMol/L 08/04/2024 7:07 AM [facility] Blood VENOUS BLOOD SPECIMEN / Unknown Venipuncture / Unknown 08/04/2024 6:08 AM EST 08/04/2024 6:19 AM EST Bridgette Stauffer MD CHEMISTRY ORDERABLES Performing Organization Address City/[facility] Co de Phone Number [facility] [place] [address] * Basic Metabolic Panel (08/04/2024 6:08 AM [...] Stauffer MD CHEMISTRY ORDERABLES Performing Organization Address City/[facility]/ZIP Co de Phone Number [facility] [place] [address] * POC, GLUCOSE (08/02/2024 7:47 AM EST) Only the most recent of16 resultswithin the time period is included. Glucometer, POC 89 65 - 199 mg/dL 08/02/2024 7:47 AM EST [facility] Comment:Supplemental ranges: <140 mg/dL before meals <180 mg/dL all other times of the day. Blood CAPILLARY BLOOD / Unknown 08/02/2024 7:47 AM EST 08/02/2024 7:47 AM EST Arnel Parker MD POINT OF CARE TEST O RDERABLES Performing Organization Address City/[facility]/ZIP Co de Phone Number [facility] [place] [address] * Scan Doc: Telemetry Strips (08/02/2024 7:37 [...] MD CHEMISTRY ORDERABL ES [facility] [place] [address] * (ABNORMAL) Cooximetry, POC (08/01/2024 10:45 AM [...] TEST O RDERABLES Performing Organization Address [facility]/State/ZIP Co de Phone Number [facility] [place] [address] * CARDIAC CATHETERIZATION (07/31/2024 5:53 PM EST) Only the most recent of2 resultswithin the time period is included. Anatomical Region Laterality Modality Other Narrative 08/01/2024 12:37 PM EST ?[facility] ? Cardiac Catheterization/Intervention Report ? Patient Name: Korey Montoya. ? Procedure Date: 07/31/2024 ? A #: [id number] ? Primary Physician: Maldonado Luis ? Case #: [id number] ? File Name: [id number] ? Catheterization Order Number: [id number] ? [facility] ? Final Report [place], [place] ? Patient Name: ? Korey Mittal. Jan ?ID#: ?[id number] ? : ?1950 ? Procedure Date: ? July 31, 2024 ?Case #: ? [id number] ? Room: ? 1 ? Case [...] ? Comments: ?Impella removed from the right PORT DRIER with deployment of Perclose and ?Angioseal. ??Good [...] Procedure Note Maldonado Luis MD - 08/01/2024 [facility] Cardiac Catheterization/Intervention Report Patient Name: Korey Montoya Procedure Date: 07/31/2024 A #: [id number] Primary Physician: Maldonado Luis Case #: [id number] File Name: [id number] Catheterization Order Number: [id number] [facility] FinalReport [place], [place] Patient Name: Korey Montoya ID#:[id number] :1950 Procedure Date: July 31, 2024 Case [...] was designated as ASA Class IV. The [facility] clinical frailtyscale is 4: Vulnerable. Diagnostic [...] procedures. Comments: Impella removed from the right PORT DRIER with deployment of Perclose and Angioseal. Good [...] - 199 mg/dL 07/31/2024 8:30 AM [facility] Comment:Glucose Concentratio n >=200 mg/dL plus symptoms is consistent with Diabetes Mellitus. Blood ARTERIAL BLOOD / Unknown 07/31/2024 8:29 AM EST 07/31/2024 8:30 AM EST Arnel Parker MD POINT OF CARE TEST O RDERABLES [facility] [place] [address] * (ABNORMAL) Hepatic Function Panel (07/31/2024 1:08 AM EST) Albumin 3.1(L) 3.2 - 5.2 g/dL 07/31/2024 1:46 AM [facility] Aspartate Aminotransferase 192(H) <=39 unit/L [...] Parker MD CHEMISTRY ORDERABLES Performing Organization Address City/[facility]/ZIP Co de Phone Number [facility] [place] [address] * (ABNORMAL) Phosphorus (07/30/2024 3:08 PM EST) Only the most recent of3 resultswithin the time period is included. Phosphorus 2.1(L) 2.5 - 4.5 mg/dL 07/30/2024 3:58 PM EST [facility] Blood VENOUS BLOOD SPECIMEN / Unknown Venipuncture / Unknown 07/30/2024 3:08 PM EST 07/30/2024 3:12 PM EST Jay Silverio MD CHEMISTRY ORDERABL ES Performing Organization Address City/[facility]/ZIP Co de Phone Number [facility] [place] [address] * ECHO LMTD W CONTRAST W LMTD SPEC DOPP COLOR DOPP (07/30/2024 11:42 AM EST) Anatomical Region Laterality Modality Cardiac Other 07/30/2024 10:2 2 AM EST Narrative 07/30/2024 12:34 PM EST [address] [place] [address] ? Echocardiogram Report Name: KOREY MONTOYA ? Study Date: 07/30/2024 10:22 AMBP: 124/66 mmHg : 1950 ? Height: 168 cm ? Account: [id number] Age: 74 yrs ? Weight: 65 kg Gender: Male ?BSA: 1.7 m2 Ordering Physician: Jay Silverio MD Referring Physician: DEONDRE FERRERA Performed By: OMERO Millan Reason For Study: ST elevation myocardial infarction involving left anterior descending (LAD) coronary artery Interpreting Fellow: Ivan Hernandez. Exam Location: [facility]. Interpretation Summary Left ventricle is severely [...] Compared to the overnight study by the flight operations dispatch clerk fellow the impella position is stable. 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 Procedure Limited - 65135. Image enhancement Definity was used for both [...] Note Kathleen Banda MD - 07/30/2024 [address] [place] [address] Echocardiogram Report Name: KOREY MONTOYA Study Date: 410:22 AMBP: 124/66 mmHg : 1950 Height: 168 cm Account: [id number] Age: 74 yrs Weight: 65 kg Gender: Male BSA: 1.7 m2 Ordering Physician: Jay Silverio MD Referring Physician: DEONDRE FERRERA Performed By: OMERO Millan Reason For Study: ST elevation myocardial infarction involving leftanterior descending (LAD) coronary artery Interpreting Fellow: Ivan Hernandez. Exam Location: [facility]. Interpretation Summary Left ventricle is severely [...] Compared to the overnight study by the flight operations dispatch clerk fellow the impella positionis stable. The global left ventricular systolic function has improvedpredominantly via recruitment outside the LAD territory which remains akinetic. Procedure Limited - 24913. Image enhancement Definity was used for both [...] of5 resultswithin the time period is included. [facility] Troponin-T, High Sensitivity 8,651(H) <=22 ng/L 07/30/2024 [...] Medical Center Laboratory Test Catalog Troponin - [email or web address].org/[email or web address] Reference: Fourth Voltaire Definition of Myocardial Infarction. Journal of the [place] College of [employer]iology 2018;72:5136-3943 Blood VENOUS BLOOD SPECIMEN / Unknown Venipuncture / Unknown 07/30/2024 8:09 AM EST 07/30/2024 8:26 AM EST Jay Silverio MD CHEMISTRY ORDERABL ES [facility] [place] [address] * Echocardiogram Transthoracic (07/30/2024 1:41 AM EST) Anatomical Region Laterality Modality Cardiac Other 07/30/2024 1:41 AM EST Narrative 07/30/2024 8:23 AM EST [address] [place] [address] ? Echocardiogram Report Name: KOREY MONTOYA Kyrie ? Study Date: 07/30/2024 01:41 AM : 1950 ? Height: 168 cm Age: 74 yrs ? Weight: 5.9 kg Gender: Male ?BSA: 0.63 m2 Performed By: Beatris Ching MD Reason For Study: STEMI, VT History: ASCVD, HTN, HLD Interpreting Fellow: Beatris Ching. Interpretation Summary This is a limited study performed by a fellow flight operations dispatch clerk to evaluate for cardiogenic shock with [...] study available for comparison. Procedure Limited - 21252. Suboptimal quality. There is sinus bradycardia. Left [...] Note Kathleen Banda MD - 07/30/2024 [address] [place] [address] Echocardiogram Report Name: KOREY MONTOYA Study Date: 07/30/2024 01:41AM : 1950 Height: 168 cm Age: 74 yrs Weight: 5.9 kg Gender: Male BSA: 0.63 m2 Performed By: Beatris Ching MD Reason For Study: STEMI, VT History: ASCVD, HTN, HLD Interpreting Fellow: Beatris Ching. Interpretation Summary This is a limited study performed by a fellow flight operations dispatch clerk to evaluate forcardiogenic shock with impella [...] study available for comparison. Procedure Limited - 53918. Suboptimal quality. There is sinus bradycardia. Left [...] Recheck AB POSITIVE 07/29/2024 10:13 PM EST [facility] Blood VENOUS BLOOD SPECIMEN / Unknown Venipuncture / Unknown 07/29/2024 6:43 PM EST 07/29/2024 7:15 PM EST Jay Silverio MD BLOOD BANK LAB ORD ERABLES Performing Organization Address City/[facility]/ZIP Co de Phone Number [facility] [place] [place] [address] * Type and screen ([facility]/CGP/MAGALIE) (07/29/2024 5:56 PM EST) Pathologist [facility] ABORH Type AB POSITIVE 07/29/2024 9:44 PM EST [facility] PATIENT HISTORY Not Found 07/29/2024 9:44 PM EST [facility] Expires at [id number] on: 08/01/2024 07/29/2024 9:44 PM EST [facility] ANTIBODY SCREEN AUTOMATED Negative 07/29/2024 9:44 PM EST [facility] T&S only valid at [facility] 07/29/2024 9:44 PM EST [facility] Blood VENOUS BLOOD SPECIMEN / Unknown Venipuncture / Unknown 07/29/2024 5:56 PM EST 07/29/2024 6:07 PM EST Narrative [facility] - 07/29/2024 9:44 PM EST This Type and Screen result is only valid at the [facility] Jay Silverio MD BLOOD BANK LAB ORD ERABLES Performing Organization Address City/[facility]/ZIP Co de Phone Number [facility] [place] [address] * EKG 12 Lead (07/29/2024 4:21 PM EST) Only the most recent of2 resultswithin the time period is included. Ventricular rate 72 BPM MUSE SYSTEM Atrial Rate 72 BPM MUSE SYSTEM P-R Interval 168 ms MUSE SYSTEM QRS Duration 82 ms MUSE SYSTEM Q-T Interval 392 ms MUSE SYSTEM QTC Calculated (Bezet) 429 ms MUSE SYSTEM Calculated P [place] 71 degrees MUSE SYSTEM Calculated R [place] 77 degrees MUSE SYSTEM Calculated T [place] 28 degrees MUSE SYSTEM INTERPRETATION Sinus rhythm with Premature supraventricular complexes and Occasional Premature ventricular complexes Low voltage QRS 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) Lateral injury pattern ACUTE PA / STEMI Abnormal ECG When compared with [...] - BLO OD ORDERABLES Performing Organization Address City/[facility]/ZIP Co de Phone Number [facility] [place] [address] * XR Chest One View (07/29/2024 2:30 PM EST) Only the most recent of3 resultswithin the time period is included. WORKSTATION ID [id number] RAD Anatomical Region Laterality Modality Chest N/A [...] have questions please contact the health care information associate that requested your imaging first. ? Electronically signed by: Chris Candelaria MD, [facility] ([phone]), at 07/29/2024 3:21 PM Narrative 07/29/2024 3:21 [...] who have questions please contactthe health care information associate that requested your imaging first. Electronically signed by: Chris Candelaria MD, [facility]([phone]), at 07/29/2024 3:21 PM Vahe Marvin MD IMG DX ORDERABLES * TSH [place] (07/29/2024 2:03 PM EST) Thyroid Stimulating Hormone 0.70 0.27 - 4.20 mcIU/mL 07/29/2024 2:52 PM EST [facility] Blood VENOUS BLOOD SPECIMEN / Unknown Venipuncture / Unknown 07/29/2024 2:03 PM EST 07/29/2024 2:14 PM EST Vahe Marvin MD CHEMISTRY ORDERABLES Performing Organization Address City/[facility]/ZIP Co de Phone Number [facility] [place] [address] * CRP, acute inflammation (07/29/2024 2:03 PM EST) C-Reactive Protein <3.0 <=4.9 mg/L 07/29/2024 2:52 PM EST [facility] Blood VENOUS BLOOD SPECIMEN / Unknown Venipuncture / Unknown 07/29/2024 2:03 PM EST 07/29/2024 2:14 PM EST Vahe Marvin MD CHEMISTRY ORDERABLES [facility] [place] [address] * (ABNORMAL) APTT (07/29/2024 2:03 PM EST) Partial Thromboplastin Time >160(HHH) 25 - 37 sec 07/29/2024 2:56 PM EST [facility] Blood VENOUS BLOOD SPECIMEN / Unknown Venipuncture / Unknown 07/29/2024 2:03 PM EST 07/29/2024 2:13 PM EST Vahe Marvin MD HEMATOLOGY ORDERABLE S [facility] [place] [address] * (ABNORMAL) Prothrombin Time (07/29/2024 2:03 PM [...] MD HEMATOLOGY ORDERABLE S [facility] [place] [address] * Hemoglobin A1c (07/29/2024 2:03 PM EST) Pathologist [facility] Hemoglobin A1c 5.3 4.3 - 5.6 % [...] red blood cell turnover may not be energy conservation representative of glycemic control. Reference Interval: 4.3 [...] EST 07/29/2024 2:14 PM EST [facility] - 07/29/2024 2:41 PM EST Estimated average glucose (eAG) is calculated from the equation described in: Quinten ALVES, Rikki J, Reno R, et al. ??Translating the A1C assay into estimated average glucose values. ??Diabetes Care 2008:31(8):7204-4572. Additional resources are available on the ADA website (diabetes.org). Vahe Marvin MD CHEMISTRY ORDERABLES [facility] [place] [address] * Lipid Panel (Reflex Direct LDL) (07/29/2024 2:03 PM EST) [facility] Cholesterol, Total 133 mg/dL 07/29/2024 2:52 PM [...] EST 07/29/2024 2:14 PM EST [facility] - 07/29/2024 2:52 PM [...] Marvin MD CHEMISTRY ORDERABLES [facility] [place] [address] * (ABNORMAL) Comprehensive metabolic panel (07/29/2024 2:03 [...] Marvin MD CHEMISTRY ORDERABLES [facility] [place] [address] * (ABNORMAL) Blood Gas, Venous POC (07/29/2024 [...] CARE TEST O RDERABLES [facility] [place] [address] * (ABNORMAL) BLOOD GAS, POC (07/29/2024 12:46 [...] TEST O RDERABLES Performing Organization Address [facility] [place] [address] * External Cardiology Result (07/29/2024 10:13 AM EST) Anatomical Region Laterality Modality Other Historical Provider EXTERNAL CARDIOLO GY RESULT * Scan Doc: EEG (07/29/2024 9:44 AM EST) Historical Provider MEDIA MGR SCAN EX T ORDR/RSLT * Urine culture (06/25/2024 11:55 AM EDT) Urine Culture No growth 06/26/2024 12:22 PM EDT [facility] Urine URINE SPECIMEN OBTAINED BY CLEAN CATCH PROCEDURE / Unknown 06/25/2024 11:55 AM EDT 06/25/2024 5:18 PM EDT Aubrey Cali MD MICROBIOLOGY - GENER AL ORDERABLES Performing Organization Address [facility] [place] [address] * COLONOSCOPY (08/30/2023 10:57 AM EST) COLONOSCOPY [facility] Endoscopy Procedure Date: 08/30/2023 10:57 AM ? Patient Name: Korey Montoya ? Date of : 1950 ? Age: 73 ? Order #: [id number] ? Instrument Name: [id number] ? Procedure: ? Colonoscopy Indications: ? Rectal pain Providers: ? Tika Brooks Ty ? Bermudez Referring MD: ?Yoel Artis [...] preparation was evaluated ? using the BBPS (Ogden Bowel ? Preparation Scale) with scores of: [...] I personally performed the entire procedure. ? UmerToby Mcgovern Brandan Quinn Froilan, 08/30/2023 11:29:25 AM Number of Addenda: 0 Note Initiated On: 08/30/2023 10:57 AM [employer]OVATION 08/30/2023 10:5 7 AM EST Yoel Artis APRN GENERAL SURGICAL ORD ERABLES [employer]ATION from Last 3 Months or Most Recently Relevant to Health Maintenance Advance Directives * Attempt Cardiopulmonary Resuscitation - Inpatient (Latest Code Status on File) Date Activated Date Inactivated Comments 07/29/2024 2:01 PM 08/04/2024 7:34 PM Question Answer Comments Code Status decision made by: Patient Content of discussion: pre-arrest limitations Care Teams Residential Framing Carpenter Relationship Specialty Start Date End Date Alexia Mtz APRN [address] [place] [address] PCP - General Family Medicine 07/30/24
--- OUTSIDE RECORDS SUMMARY | 2024-09-21 11:29 | XMS_ITS | Encounter Summary ---
Author Organization [facility] Address [facility] [place] [address] Care Team Providers Care Weather Observer Name Role Phone ArgyleAlexia shell Shun ALCALA Primary Care Provider [phone] Reason for Referral * Consultation (Routine) - Authorized Specialty Diagnoses / Procedures Referred By Conteleazar t Referred To Contact Cardiology Diagnoses HFrEF (heart failure with reduced ejection fraction) [facility] S/P D/C acute HFrEF Alex Small MD [facility] [address] [place] [address] Mushtaq Murphy APRN [facility] [place] [address] Referral ID Status Reason Start Date Expiration Date Visits Requested Visits Authorized [id number] Authorized Consult, Test & Treat 08/04/2024 08/04/2025 1 1 * Consultation (Routine) - Authorized Specialty Diagnoses / Procedures Referred By Contac t Referred To Contact Cardiology Diagnoses ST elevation myocardial infarction involving left anterior descending (LAD) coronary artery Yrn Ward MD [facility] [place] [address] Cardiac Rehab, [address] [place] [address] Referral ID Status Reason Start Date Expiration Date Visits Requested Visits Authorized [id number] Authorized Consult, Test & Treat 08/04/2024 01/31/2025 36 36 Reason for Visit * Auth/Cert (Routine) Specialty Diagnoses / Procedures Referred By Contac t Referred To Contact Diagnoses STEMI (ST elevation myocardial infarction) STEMI Procedures ER IPI Vahe Marvin MD [facility] [place] [address] [facility] Referral ID Status Reason Start Date Expiration Date Visits Re quested Visits Authorized [id number] 1 1 Encounter Details Date Type Department Care Team (Latest Contact Info) Description 07/29/2024 11:45 AM EST - 08/04/2024 5:00 PM EST Hospital Encounter Cardiovascular [place] [id number] Vahe Marvin MD [facility] [place] [place] [address] Jay Silverio MD [facility] [place] [address] Krystal Parker MD [facility] [place] [address] Bridgette Stauffer MD [facility] [place] [address] Yrn Ward MD [facility] [place] [address] Alex Small MD [facility] [place] [address] ST elevation myocardial infarction involving left anterior descending (LAD) coronary artery; HFrEF (heart failure with reduced ejection fraction) Discharge Disposition: Home Social History Tobacco Use Types Packs/Day Years Used Date Smoking Tobacco: Former Cigarettes Smokeless Tobacco: Never Alcohol Use Standard Drinks/Week Comments Not Currently 0 (1 standard drink = 0.6 oz pur e alcohol) [facility] Utilities Answer Date Recorded In [...] please contact your inpatient physician through the [facility] Occupational Therapist Assistant . Issues afterhours and on weekends [...] EKG. Patient transferred via air ambulance to [facility] on 07/29 for LHC [...] EKG. Was transferred via air ambulance to [facility] for further management and LHC demonstrated 100% occlusion. No significant RCA, LMCA, or LCX disease. LOW placed in LAD with some residual distal disease meriting placement of overlapping distal stent. TTE showed apical akinesis and inferior hypokinesis with EF 20%. RHC showed elevated filling pressures. Impella placed and P-level 6 at time of transfer to [facility]. CI initially 1.97, improved to 2.2 [...] the next year. Access was via right INSPECTOR WATCH ASSEMBLY and this sitewas clean, dry and intact [...] for Chest pain. Replaces: nitroGLYcerin 400 mcg/spray Haynes, Non-Aerosol 0.4 mg Quantity: 90 tablet Refills: [...] Refills: 0 STOPPED Medications nitroGLYcerin 400 mcg/spray Haynes, Non-Aerosol Commonly known as: NITROLINGUAL Replaced by: [...] of one year. After this time, your stitcher special machine will determine if you need to continue [...] away. Stay on the phone. The emergency picker operator will tell you what to do. [...] appointments: During 8am-5pm Tuesday through Tuesday call [phone] to speak with a nurse in the cardiology clinic All other times call [phone] and ask to speak to the field marketer insurance verification representative. Follow up Appointments: PCP Alexia Mtz, RAW MATERIAL HANDLER [phone]. Please call to establish a follow up appointment within 1-2 weeks of discharge. Cardiology. Referral to heart failure has been sent. General Instructions None Future Appointments and Orders Future Orders Complete By Expires Referral to Cardiac Rehab [[id number] Custom] As directed Process Instructions: If no progress note charted, please enter Clinical details in comments. Scheduling Instructions: Questions: My question or request is: STEMI, PCI- cardiac rehab at [facility] Referral to Cardiology [REF12 Custom] As directed [...] of one year. After this time, your stitcher special machine will determine if you need to continue [...] away. Stay on the phone. The emergency picker operator will tell you what to do. [...] appointments: During 8am-5pm Tuesday through Tuesday call [phone] to speak with a nurse in the cardiology clinic All other times call [phone] and ask to speak to the field marketer insurance verification representative. Follow up Appointments: PCP Alexia Mtz, RAW MATERIAL HANDLER [phone]. Please call to establish a follow up [...] EKG. Patient transferred via air ambulance to [facility] on 07[place]29 for LHC and LOW to [facility] for 100% occlusion Social History: Pt lives with his in a 1 level home with 2 NAOMI. 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 [...] Total time: 35 (tef) minutes Time IN/OUT: 4144-3418 ZAIDA DUBOSE PT Pager: [phone] Physical Therapy Inpatient Rehabilitation Department * Yrn Ward MD - 08/03/2024 10:38 AM EST CV HOSPITALIST 2 - [facility] DAILY PROGRESS NOTE Page [phone] to reach a provider 04/04 Admit Date: [...] Compared to the overnight study by the insurance verification representative fellow the impella position is stable. 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 [facility] 07/29/24 Conclusions: * One vessel coronary artery disease (LAD) * Mild pulmonary hypertension * Elevated pulmonary capillary wedge pressure * Successful stent insertion of the proximal LAD lesion * See Dual Antiplatelet (DAPT) Recommendations above * Successful impella placement for cardiogenic shock. Telemetry: I have personally reviewed and interpreted the telemetry from the last 24 hours. [facility] Assessment: ASSESSMENT: Korey Montoya is a 74 y.o. male w/ PMH of hypertension, HLD, and BPH who presents for chief concern of chest pain after being found to have ST elevations on EKG. Patient transferred via air ambulance to [facility] on 07/29 for LHC [...] to be determined OT: PCP Alexia Mtz, RAW MATERIAL HANDLER [phone] * Zaida Dubose, PT - 08/02/2024 2:08 PM EST Physical Therapy Evaluation Patient profile: Korey Montoya is a 74 y.o. male w/ PMH of hypertension, HLD, and BPH who presents for chief concern of chest pain after being found to have ST elevations on EKG. Patient transferred via air ambulance to [facility] on 07/29 for LHC and LOW to LAD for 100% occlusion Social History: Pt lives with his in a 1 level home with 2 NAOMI. 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 [...] Total time: 37 (eval) minutes Time IN/OUT: 8448-4217 ZAIDA DUBOSE PT Pager: [phone] Physical Therapy Inpatient Rehabilitation Department * Gagan [...] EKG. Patient transferred via air ambulance to [facility] on 07/29 for LHC and LOW to LAD for 100% occlusion. TTE showed apical akinesis and inferior hypokinesis with EF 20%. RHC showed elevated filling pressures. Impella placed and P-level 6 at time of transfer to [facility]. CI initially 1.97, improved to 2.2 After impella. Received about 3 L of fluid during procedural course. Patient initially required norepinephrine 30, epinephrine 10, and vasopressin 0.04 for hemodynamic support, which was weaned upon arrival to [facility] to norepinephrine 20and levo 0.04 N [...] PCP: Alexia Mtz APRN PCP phone number: [phone] Date of Admission: 07/29/2024 ( Hospital Day 4 days ) Attending:Bridgette Stauffer MD ID: Korey Montoya is a 74 y.o. male w/ PMH of hypertension, HLD, and BPH on Hospital Day4 for chief concern of chest pain after being found to have ST elevations on EKG. Patient transferred via air ambulance to [facility] on 07/29 for LHC [...] 07/29/24 1621 PHART 7.48* 7.44 7.38 7.37 VNW1CRL 29* 29* 34* 36 PO2ART 71* 109* 141* 71* DJT4EEX 20.6 19.4* 19.5* 20.4 VBG (Venous Blood Gas) Recent Labs 07/29/24 1401 PHVEN 7.30* PO2VEN 39 XQK3FPW 20.1* Mixed Venous Sat No results for input(s): K2FRTK2 in the last 168 hours. Objective: Vitals [...] 07/29/24 1621 PHART 7.48* 7.44 7.38 7.37 WUI5GHE 29* 29* 34* 36 PO2ART 71* 109* 141* 71* JDP7CJN 20.6 19.4* 19.5* 20.4 VBG (Venous Blood Gas) Recent Labs 07/29/24 1401 PHVEN 7.30* PO2VEN 39 HNU1RML 20.1* Mixed Venous Sat No results for input(s): X5SQIY2 in the last 168 hours. Microbiology: Microbiology Results (Last 30 days) Procedure Component Value Units Date/Time Blood culture [[id number]] Collected: 07/29/241607 Lab Status: Preliminary result Specimen: Blood, Venous Updated: 08/01/24 170 Blood Culture No growth at 72 hours Blood culture [[id number]] Collected: 07/29/241607 Lab Status: Preliminary result Specimen: Blood, Venous Updated: 08/01/241700 Blood Culture No growth at 72 hours Imaging: Results for orders placed or performed during the hospital encounter of 07/29/24 XR Chest One View (Exam End: 07/29/2024 2:30 PM) Result Value WORKSTATION ID [id number] Impression 1. No pulmonary edema. 2. No pleural effusion. 3. No pneumothorax. Thank you for letting us participate in the care of this patient. If you are a health care provider and have any questions regarding this report, please contact the number below. For patients who have questions please contact the health vocational childcare teacher that requested your imaging first. Electronically signed by: Chris Candelaria MD, [facility] ([phone]), at 07/29/2024 3:21 PM TTE ( 07/30/24) [...] Compared to the overnight study by the insurance verification representative fellow the impella position is stable. The [...] EKG. Patient transferred via air ambulance to [facility] on 07/29 for LHC [...] Susannah Ornelas MD Internal Medicine, PGY-1 Cardiology, [facility] 08/02/24 12:45 PM CARDIOLOGY STAFF NOTE [...] today). Transfer to floor. Krystal Parker MD, [facility], [facility] Staff Cosmetics Supervisor trailhead maintenance worker * Gagan Catherine MD - 08/01/2024 11:12 [...] EKG. Patient transferred via air ambulance to [facility] on 07/29 for LHC [...] PCP: Alexia Mtz APRN PCP phone number: [phone] Date of Admission: 07/29/2024 ( Hospital Day 3 days ) Attending:Krystal Parker MD ID: Korey Montoya is a 74 y.o. male w/ PMH of hypertension, HLD, and BPH on Hospital Day3 for chief concern of chest pain after being found to have ST elevations on EKG. Patient transferred via air ambulance to [facility] on 07/29 for LHC [...] 07/29/24 1621 PHART 7.48* 7.44 7.38 7.37 GBS4JMN 29* 29* 34* 36 PO2ART 71* 109* 141* 71* UNO3LVJ 20.6 19.4* 19.5* 20.4 VBG (Venous Blood Gas) Recent Labs 07/29/24 1401 PHVEN 7.30* PO2VEN 39 UXY9ELF 20.1* Mixed Venous Sat No results for input(s): O0FBZE0 in the last 168 hours. PA Catheter [...] 07/29/24 1621 PHART 7.48* 7.44 7.38 7.37 VSB0BGD 29* 29* 34* 36 PO2ART 71* 109* 141* 71* WAE1WSX 20.6 19.4* 19.5* 20.4 VBG (Venous Blood Gas) Recent Labs 07/29/24 1401 PHVEN 7.30* PO2VEN 39 WBG9QYG 20.1* Mixed Venous Sat No results for input(s): G9ZBXY5 in the last 168 hours. Microbiology: Microbiology Results (Last 30 days) Procedure Component Value Units Date/Time Blood culture [[id number]] Collected: 07/29/241607 Lab Status: Preliminary result Specimen: Blood, Venous Updated: 07/31/241700 Blood Culture No growth at 48 hours Blood culture [[id number]] Collected: 07/29/241607 Lab Status: Preliminary result Specimen: Blood, Venous Updated: 07/31/241700 Blood Culture No growth at 48 hours Imaging: Results for orders placed or performed during the hospital encounter of 07/29/24 XR Chest One View (Exam End: 07/29/2024 2:30 PM) Result Value WORKSTATION ID [id number] Impression 1. No pulmonary edema. 2. No pleural effusion. 3. No pneumothorax. Thank you for letting us participate in the care of this patient. If you are a health care provider and have any questions regarding this report, please contact the number below. For patients who have questions please contact the health vocational childcare teacher that requested your imaging first. Electronically signed by: Chris Candelaria MD, [facility] ([phone]), at 07/29/2024 3:21 PM TTE ( 07/30/24) [...] Compared to the overnight study by the insurance verification representative fellow the impella position is stable. The [...] EKG. Patient transferred via air ambulance to [facility] on 07/29 for LHC [...] Susannah Ornelas MD Internal Medicine, PGY-1 Cardiology, [facility] 08/01/24 7:13 AM CARDIOLOGY STAFF NOTE [...] answered. Krystal Parker MD, [facility], [facility] Staff Cosmetics Supervisor trailhead maintenance worker * Krystal Parker MD - 07/31/2024 1:06 [...] ILL WITH THESE DIAGNOSES BEING MANAGED BY [facility] TEAM: # Anterior STEMI, late-presenting # [...] EKG. Patient transferred via air ambulance to [facility] on 07/29 for LHC and LOW to LAD for 100% occlusion. TTE showed apical akinesis and inferior hypokinesis with EF 20%. RHC showed elevated filling pressures. Impella placed and P-level 6 at time of transfer to [facility]. CI initially 1.97, improved to 2.2 After impella. Received about 3 L of fluid during procedural course. Patient initially required norepinephrine 30, epinephrine 10, and vasopressin 0.04 for hemodynamic support, which was weaned upon arrival to [facility] to norepinephrine 20and levo 0.04 N [...] PCP: Alexia Mtz APRN PCP phone number: [phone] Date of Admission: 07/29/2024 ( Hospital Day 2 days ) Attending:Krystal Parker MD ID: Korey Montoya is a 74 y.o. male w/ PMH of hypertension, HLD, and BPH on Hospital Day2 for chief concern of chest pain after being found to have ST elevations on EKG. Patient transferred via air ambulance to [facility] on 07/29 for LHC [...] 0057 07/29/24 1621 PHART 7.44 7.38 7.37 VGA8WUG 29* 34* 36 PO2ART 109* 141* 71* GSL8TQO 19.4* 19.5* 20.4 VBG (Venous Blood Gas) Recent Labs 07/29/24 1401 PHVEN 7.30* PO2VEN 39 UBC1MZV 20.1* Mixed Venous Sat No results for input(s): B6KCEQ3 in the last 168 hours. PA Catheter [...] 0057 07/29/24 1621 PHART 7.44 7.38 7.37 MSV8ZUD 29* 34* 36 PO2ART 109* 141* 71* DXW4GMA 19.4* 19.5* 20.4 VBG (Venous Blood Gas) Recent Labs 07/29/24 1401 PHVEN 7.30* PO2VEN 39 WIB4ITT 20.1* Mixed Venous Sat No results for input(s): O1ZXNH8 in the last 168 hours. Microbiology: Microbiology Results (Last 30 days) Procedure Component Value Units Date/Time Blood culture [[id number]] Collected: 07/29/241607 Lab Status: Preliminary result Specimen: Blood, Venous Updated: 07/30/241700 Blood Culture No Growth at 18-24 hrs. Blood culture [[id number]] Collected: 07/29/241607 Lab Status: Preliminary result Specimen: Blood, Venous Updated: 07/30/241700 Blood Culture No Growth at 18-24 hrs. Imaging: Results for orders placed or performed during the hospital encounter of 07/29/24 XR Chest One View (Exam End: 07/29/2024 2:30 PM) Result Value WORKSTATION ID [id number] Impression 1. No pulmonary edema. 2. No pleural effusion. 3. No pneumothorax. Thank you for letting us participate in the care of this patient. If you are a health care provider and have any questions regarding this report, please contact the number below. For patients who have questions please contact the health vocational childcare teacher that requested your imaging first. Electronically signed by: Chris Candelaria MD, [facility] ([phone]), at 07/29/2024 3:21 PM TTE ( 07/30/24) [...] Compared to the overnight study by the insurance verification representative fellow the impella position is stable. The [...] EKG. Patient transferred via air ambulance to [facility] on 07/29 for LHC [...] work to optimize volume status while continuing rezhjtk-qtxlzb-whcftvhaxg therapies at this time. Obtain comprehensive TTE. [...] EKG. Patient transferred via air ambulance to [facility] on 07/29 for LHC and LOW to LAD for 100% occlusion. TTE showed apical akinesis and inferior hypokinesis with EF 20%. RHC showed elevated filling pressures. Impella placed and P-level 6 at time of transfer to [facility]. CI initially 1.97, improved to 2.2 After impella. Received about 3 L of fluid during procedural course. Patient initially required norepinephrine 30, epinephrine 10, and vasopressin 0.04 for hemodynamic support, which was weaned upon arrival to [facility] to norepinephrine 20and levo 0.04 N [...] PCP: Yoel Artis APRN PCP phone number: [phone] Date of Admission: 07/29/2024 ( Hospital Day 1 day ) Attending:Jay Silverio MD ID: Korey Montoya is a 74 y.o. male w/ PMH of hypertension, HLD, and BPH on Hospital Day1 for chief concern of chest pain after being found to have ST elevations on EKG. Patient transferred via air ambulance to [facility] on 07/29 for LHC [...] 0057 07/29/24 1621 PHART 7.44 7.38 7.37 EEU5PSE 29* 34* 36 PO2ART 109* 141* 71* DGT4OMA 19.4* 19.5* 20.4 VBG (Venous Blood Gas) Recent Labs 07/29/24 1401 PHVEN 7.30* PO2VEN 39 PMV0CTP 20.1* Lactate ( Last 12 hours) 1.3 >> 1.2 Mixed Venous Sat No results for input(s): N0YYLW1 in the last 168 hours. PA Catheter [...] 0057 07/29/24 1621 PHART 7.44 7.38 7.37 FWK7QNN 29* 34* 36 PO2ART 109* 141* 71* HEI7ZQE 19.4* 19.5* 20.4 VBG (Venous Blood Gas) Recent Labs 07/29/24 1401 PHVEN 7.30* PO2VEN 39 ILI2FJR 20.1* Mixed Venous Sat No results for input(s): X6WISE9 in the last 168 hours. Microbiology: Microbiology Results (Last 30 days) Procedure Component Value Units Date/Time Blood culture [[id number]] Collected: 07/29/24 160 Lab Status: In process Specimen: Blood, Venous Updated: 07/29/24 162 Blood culture [[id number]] Collected: 07/29/241607 Lab Status: In process Specimen: Blood, Venous Updated: 07/29/24 161 Imaging: Results for orders placed or performed during the hospital encounter of 07/29/24 XR Chest One View (Exam End: 07/29/2024 2:30 PM) Result Value WORKSTATION ID [id number] Impression 1. No pulmonary edema. 2. No pleural effusion. 3. No pneumothorax. Thank you for letting us participate in the care of this patient. If you are a health care provider and have any questions regarding this report, please contact the number below. For patients who have questions please contact the health vocational childcare teacher that requested your imaging first. Electronically signed by: Chris Candelaria MD, [facility] ([phone]), at 07/29/2024 3:21 PM Medications Scheduled Meds: [...] EKG. Patient transferred via air ambulance to [facility] on 07/29 for LHC [...] setting of STEMI and cardiogenic shock. Neuro #EDIOSN - Awake, alert, interactive Cardiovascular #STEMI LAD, [...] EKG. Patient transferred via air ambulance to [facility] on 07/29 for LHC [...] EKG. Was transferred via air ambulance to [facility] for further management and [facility] demo nstrated 100% occlusion. No significant [...] (WRVU 4.57) performed by Brandan Mcgovern MD [facility] ENDOSCOPY Significant Family History: Family History [...] mouth. Past Week nitroGLYcerin (NITROLINGUAL) 400 mcg/spray Haynes, Non-Aerosol 1 spray to anus for proctalgia [...] 3.5 guiding catheter and a 3.5 Fr [facility] [address] 20 Mhz using Manual pullback. Imaging [...] atmospheres. A premounted 3.00 x 22 mm [place] Gillespie (LOW) was deployed with a maximum inflation [...] atmospheres. A premounted 3.00 x 08 mm [place] Gillespie (LOW) was deployed with a maximum inflation [...] a limited study performed by a fellow insurance verification representative to evaluate for cardiogenic shock with [...] Compared to the overnight study by the insurance verification representative fellow the impella position is stable. The [...] EKG. Patient transferred via air ambulance to [facility] on 07/29 for LHC [...] PCP: Yoel Artis APRN PCP phone number: [phone] Date of Admission: 07/29/2024 ( Hospital Day 0 days ) Attending:Jay Silverio MD ID: Korey Montoya is a 74 y.o. male w/ PMH of hypertension, HLD, and BPH who presents for chief concern of chest pain after being found to have ST elevations on EKG. Patient transferred via air ambulance to [facility] on 07/29 for LHC and LOW to LAD for 100% occlusion. HPI: Korey Montoya is a 74 y.o. male w/ PMH of hypertension, HLD, and BPH who presents for chief concern of chest pain after being found to have ST elevations on EKG. Patient transferred via air ambulance to [facility] on 07/29 for LHC [...] EKG. Was transferred via air ambulance to [facility] for further management and [...] (WRVU 4.57) performed by Brandan Mcgovern MD [facility] ENDOSCOPY Family History Family History Problem [...] Blood Gas) No results for input(s): PHART, UVY5HPE, PO2ART, XOM7ACT, LACTATEVEN, PLA4DXB, PFRATIOART2 in the last 168 hours. VBG (Venous Blood Gas) Recent Labs 07/29/24 1401 PHVEN 7.30* PO2VEN 39 GAP3QLO 20.1* Mixed Venous Sat No results for input(s): D1QBUF3 in the last 168 hours. PA Catheter [...] Blood Gas) No results for input(s): PHART, YBO9NIX, PO2ART, ETA6KOX, LACTATEVEN, VER3NYA, PFRATIOART2 in the last 168 hours. VBG (Venous Blood Gas) Recent Labs 07/29/24 1401 PHVEN 7.30* PO2VEN 39 SJL4TTE 20.1* Mixed Venous Sat No results for input(s): B9ZPUT0 in the last 168 hours. Microbiology: Microbiology [...] EKG. Patient transferred via air ambulance to [facility] on 07/29 for C. Found to have 100% occlusion of LAD for which he underwent LOW to LAD.Otherwise no other significant vessel disease. Faahd is currently hemodynamically tenuous but improving upon admission to [facility], requiring hemodynamic support with norepinephrine and vasopressin at time of admission along with mechanical support with Impella device. Reassuringly, he demonstrates decreasing pressor requirements since admission to [facility], with epinephrine completely weaned. He does [...] Bernardo Amos MD Internal Medicine, PGY-3 Cardiology, [facility] 07/29/24 3:14 PM Cardiology Attending Note [...] of Cardiovascular Medicine [facility] Automobile Dealerlinen sorter [facility]ly [facility] This patient meets or has [...] to the planned procedure. Hand Hygiene: The electric motor winders assembler did perform hand hygiene prior to arterial [...] ease. Good wave form. Ivan Hernandez MD Paper Machine Operator Associated attestation - Rolando Yeh MD [...] in an outpatient cardiac rehabilitation program at [facility] was discussed. Patient agrees to a referral [...] of Discharge: 08/04/2024 Gaby Wong RN, CM [phone] * Initial Assessments - Char Meza OT - 08/03/2024 10:00 AM EST Occupational Therapy Evaluation Patient profile: Korey Montoya is a 74 y.o. male admitted on 07/29/2024 w/ PMH of hypertension, HLD, and BPH who presents for chief concern of chest pain after being found to have ST elevations onEKG. Patient transferred via air ambulance [place] [facility] [place] for LHC and OLW to LAD for 100% occlusion. Past Medical History: Diagnosis Date ADHD HLD (hyperlipidemia) HTN (hypertension) Tremor Past Surgical History: Procedure Laterality Date HAND SURGERY PRO COLONOSCOPY, REMV LESN, SNARE N/A 08/30/2023 COLONOSCOPY, POLYPECTOMY, REMOVAL LESION BY SNARE (WRVU 4.57) performed by Brandan Mcgovern MD [facility] ENDOSCOPY Social History: Patient lives with his . Home Setup: 2 NAOMI to a 1 level home. DME: none Baseline ADL/Mobility: Independent with ADLs and IADLs. Enjoys walking. able assist as needed. Precautions/Special Considerations: Full code. Risk for falls. Subjective: I have access to an [employer] weight gym. (Educated to wait for MD [...] evaluation only Total Minutes, Occupational Therapy: 14 ([id number] (evaluation)) 2017 OT Evaluation Code Rationale: Diagnosis [...] and measurable assessment of functional outcome. 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 (Only good for 180 days) Any patient receiving care in [place] must abide by [place] law. 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 [place] MEDICARE Payor: [facility] MANAGED MEDICARE / Plan: [facility] 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 CXR and EKG completed. Impella [...] Procedure Note: Patient Name: Korey Montoya : [id number] MR#: [id number] Case Date: 07/29/2024 Occupational Therapist Assistant: Surgeons and Role: * Vahe Marvin MD - Primary * Susannah Watts PA - Physician Rn Case Manager Preoperative diagnosis: STEMI Postoperative diagnosis: * STEMI, LAD Artery * * Cardiogenic Shock * Procedure(s) performed: [facility] Coronary angiogram Stent insertion coronary IVUS coronary Venous line insert [facility] Luck Colette Catheter Vascular closure device Ventricular assist [...] x 22 mm to 14 deonna JEISON Gillespie with LIZ 3 flow. Residual distal disease at distal stent, overlapping distal stent was inserted with 3.0 x 8 mm JEISON Gillespie. Systolic's in the 80's sustained. Patient re [...] AM EST Office Visit Cardiology at [address] [phone] Mushtaq Murphy, RAW MATERIAL HANDLER Scheduled Orders Name Type Priority Associated Diagnoses [...] CBC (with Diff) (08/04/2024 6:08 AM EST) [facility] White Blood Cell 7.27 4.00 - 9.50 x10(3)/mc L 08/04/2024 6:[address] [facility] Red Blood Cell 4.28(L) 4.58 - 5.54 x10(6)/mc L 08/04/2024 6:[address] [facility] Hemoglobin 11.6(L) 13.7 - 16.5 g/dL 08/04/2024 6:[address] [facility] Hematocrit 34.8(L) 40.5 - 48.5 % 08/04/2024 6:[address] [facility] Mean Cell Volume 81.3(L) 82.9 - 93.1 fL 08/04/2024 6:[address] [facility] Mean Cell Hemoglobin 27.1(L) 27.5 - 32.1 pg 08/04/2024 6:[address] [facility] Mean Cell Hemoglobin Concentration 33.3 32.0 - 35.7 g/dL 08/04/2024 6:[address] [facility] Platelet 178 145 - 357 x10(3)/mc L 08/04/2024 6:[address] [facility] Mean Platelet Volume 10.6 7.6 - 12.9 fL 08/04/2024 6:[address] [facility] RDW Standard Deviation 42.0 36.0 - 45.0 fL 08/04/2024 6:[address] [facility] RDW coefficient of variation 14.3(H) 11.4 - 13.8 % 08/04/2024 6:[address] [facility] NRBC% auto 0.0 % 08/04/2024 6:[address] [facility] NRBC Absolute <0.01 <0.01 x10(3)/mc L 08/04/2024 6:[address] [facility] Neutrophil % 72.1 % 08/04/2024 6:[address] [facility] Neutrophil Absolute (ANC) - Automated 5.24 1.70 - 6.10 x10(3)/mc L 08/04/2024 6:[address] [facility] Lymph % 16.8 % 08/04/2024 6:[address] [facility] Lymph Absolute 1.22 0.90 - 3.20 x10(3)/mc L 08/04/2024 6:[address] [facility] Monocyte % 8.5 % 08/04/2024 6:[address] [facility] Monocyte Absolute 0.62 0.30 - 0.90 x10(3)/mc L 08/04/2024 6:[address] [facility] Eos % 1.9 % 08/04/2024 6:[address] [facility] Eos Absolute 0.14 0.00 - 0.40 x10(3)/mc L 08/04/2024 6:[address] [facility] Basophil % 0.4 % 08/04/2024 6:[address] [facility] Baso Absolute <0.04 0.00 - 0.10 x10(3)/mc L 08/04/2024 6:[address] [facility] Immature Gran % 0.3 % 6:[address] [facility] Immature Gran Absolute <0.04 0.00 - 0.04 x10(3)/mc L 08/04/2024 6:[address] [facility] Blood VENOUS BLOOD SPECIMEN / Unknown Venipuncture / Unknown 08/04/2024 6:08 AM EST 08/04/2024 6:19 AM EST Bridgette Stauffer MD HEMATOLOGY ORDERABLE S [facility] [place] [address] * Magnesium (08/04/2024 6:08 AM EST) Magnesium 0.85 0.69 - 1.07 mMol/L 08/04/2024 7:[address] [facility] Blood VENOUS BLOOD SPECIMEN / Unknown Venipuncture / Unknown 08/04/2024 6:08 AM EST 08/04/2024 6:19 AM EST Bridgette Stauffer MD CHEMISTRY ORDERABLES [facility] [place] [address] * Basic Metabolic Panel (08/04/2024 6:08 AM EST) Glucose 93 65 - 199 mg/dL 08/04/2024 7:[address] [facility] Comment:Glucose Concentratio n >=200 mg/dL plus symptoms is consistent with Diabetes Mellitus. Blood Urea Nitrogen 14 10 - 20 mg/dL 08/04/2024 7:[address] [facility] Creatinine 1.07 0.80 - 1.50 mg/dL 08/04/2024 7:07 AM EST [facility] Sodium 138 135 - 145 mMol/L 08/04/2024 7:[address] [facility] Potassium 4.3 3.5 - 5.0 mMol/L 08/04/2024 7:[address] [facility] Chloride 107 98 - 107 mMol/L 08/04/2024 7:[address] [facility] Carbon Dioxide 23 22 - 31 mMol/L 08/04/2024 7:[address] [facility] Anion Gap 8 5 - 15 mMol/L 08/04/2024 7:[address] [facility] Calcium 8.5 8.5 - 10.5 mg/dL 08/04/2024 7:[address] [facility] Est Glomerular Filtration Rate - Male 74 mL/min/1. 73 m?? 08/04/2024 7:[address] [facility] Comment: This patient's estimated GFR [...] AM EST Bridgette Stauffer MD CHEMISTRY ORDERABLES [facility] [place] [address] * (ABNORMAL) CBC (with Diff) (08/03/2024 5:16 AM EST) White Blood Cell 7.85 4.00 - 9.50 x10(3)/mc L 08/03/2024 5:[address] [facility] Red Blood Cell 4.43(L) 4.58 - 5.54 x10(6)/mc L 08/03/2024 5:[address] [facility] Hemoglobin 11.8(L) 13.7 - 16.5 g/dL 08/03/2024 5:[address] [facility] Hematocrit 35.9(L) 40.5 - 48.5 % 08/03/2024 5:[address] [facility] Mean Cell Volume 81.0(L) 82.9 - 93.1 fL 08/03/2024 5:[address] [facility] Mean Cell Hemoglobin 26.6(L) 27.5 - 32.1 pg 08/03/2024 5:[address] [facility] Mean Cell Hemoglobin Concentration 32.9 32.0 - 35.7 g/dL 08/03/2024 5:[address] [facility] Platelet 142(L) 145 - 357 x10(3)/mc L 08/03/2024 5:[address] [facility] Mean Platelet Volume 10.5 7.6 - 12.9 fL 08/03/2024 5:[address] [facility] RDW Standard Deviation 42.5 36.0 - 45.0 fL 08/03/2024 5:[address] [facility] RDW coefficient of variation 14.2(H) 11.4 - 13.8 % 08/03/2024 5:[address] [facility] NRBC% auto 0.0 % 08/03/2024 5:[address] [facility] NRBC Absolute <0.01 <0.01 x10(3)/mc L 08/03/2024 5:[address] [facility] Neutrophil % 75.2 % 08/03/2024 5:[address] [facility] Neutrophil Absolute (ANC) - Automated 5.91 1.70 - 6.10 x10(3)/mc L 08/03/2024 5:[address] [facility] Lymph % 13.4 % 08/03/2024 5:[address] [facility] Lymph Absolute 1.05 0.90 - 3.20 x10(3)/mc L 08/03/2024 5:[address] [facility] Monocyte % 9.0 % 08/03/2024 5:[address] [facility] Monocyte Absolute 0.71 0.30 - 0.90 x10(3)/mc L 08/03/2024 5:[address] [facility] Eos % 1.7 % 08/03/2024 5:[address] [facility] Eos Absolute 0.13 0.00 - 0.40 x10(3)/mc L 08/03/2024 5:[address] [facility] Basophil % 0.4 % 08/03/2024 5:[address] [facility] Baso Absolute <0.04 0.00 - 0.10 x10(3)/mc L 08/03/2024 5:[address] [facility] Immature Gran % 0.3 % 5:[address] [facility] Immature Gran Absolute <0.04 0.00 - 0.04 x10(3)/mc L 08/03/2024 5:[address] [facility] Blood VENOUS BLOOD SPECIMEN / Unknown Venipuncture / Unknown 08/03/2024 5:16 AM EST 08/03/2024 5:23 AM EST Bridgette Stauffer MD HEMATOLOGY ORDERABLE S [facility] [place] [address] * Magnesium (08/03/2024 5:16 AM EST) Magnesium 0.89 0.69 - 1.07 mMol/L 08/03/2024 5:[address] [facility] Blood VENOUS BLOOD SPECIMEN / Unknown Venipuncture / Unknown 08/03/2024 5:16 AM EST 08/03/2024 5:23 AM EST Bridgette Stauffer MD CHEMISTRY ORDERABLES [facility] [place] [address] * (ABNORMAL) Basic Metabolic Panel (08/03/2024 5:16 AM EST) Glucose 98 65 - 199 mg/dL 08/03/2024 5:[address] [facility] Comment:Glucose Concentratio n >=200 mg/dL plus symptoms is consistent with Diabetes Mellitus. Blood Urea Nitrogen 16 10 - 20 mg/dL 08/03/2024 5:[address] [facility] Creatinine 0.85 0.80 - 1.50 mg/dL 08/03/2024 5:56 AM EST [facility] Sodium 137 135 - 145 mMol/L 08/03/2024 5:[address] [facility] Potassium 4.5 3.5 - 5.0 mMol/L 08/03/2024 5:[address] [facility] Chloride 106 98 - 107 mMol/L 08/03/2024 5:[address] [facility] Carbon Dioxide 21(L) 22 - 31 mMol/L 08/03/2024 5:[address] [facility] Anion Gap 10 5 - 15 mMol/L 08/03/2024 5:[address] [facility] Calcium 8.3(L) 8.5 - 10.5 mg/dL 08/03/2024 5:[address] [facility] Est Glomerular Filtration Rate - Male 92 mL/min/1. 73 m?? 08/03/2024 5:[address] [facility] Comment: This patient's estimated GFR [...] Stauffer MD CHEMISTRY ORDERABLES Performing Organization Address [facility]/ZIP Co de Phone Number [facility] [place] [address] * POC, GLUCOSE (08/02/2024 7:47 AM EST) Glucometer, POC 89 65 - 199 mg/dL 08/02/2024 7:47 AM EST [facility] Comment:Supplemental ranges: <140 mg/dL before meals <180 mg/dL all other times of the day. Blood CAPILLARY BLOOD / Unknown 08/02/2024 7:47 AM EST 08/02/2024 7:47 AM EST Krystal Parker MD POINT OF CARE TEST O RDERABLES Performing Organization Address [facility] Co de Phone Number [facility] [place] [address] * (ABNORMAL) CBC (with Diff) (08/02/2024 4:20 AM EST) White Blood Cell 8.51 4.00 - 9.50 x10(3)/mc L 08/02/2024 4:50 AM EST [facility] Red Blood Cell 4.41(L) 4.58 - 5.54 x10(6)/mc L 08/02/2024 4:50 AM EST [facility] Hemoglobin 12.2(L) 13.7 - 16.5 g/dL 08/02/2024 4:50 AM EST [facility] Hematocrit 35.8(L) 40.5 - 48.5 % 08/02/2024 4:[address] [facility] Mean Cell Volume 81.2(L) 82.9 - 93.1 fL 08/02/2024 4:[address] [facility] Mean Cell Hemoglobin 27.7 27.5 - 32.1 pg 08/02/2024 4:[address] [facility] Mean Cell Hemoglobin Concentration 34.1 32.0 - 35.7 g/dL 08/02/2024 4:[address] [facility] Platelet 111(L) 145 - 357 x10(3)/mc L 08/02/2024 4:[address] [facility] Mean Platelet Volume 11.1 7.6 - 12.9 fL 08/02/2024 4:[address] [facility] RDW Standard Deviation 41.9 36.0 - 45.0 fL 08/02/2024 4:[address] [facility] RDW coefficient of variation 14.1(H) 11.4 - 13.8 % 08/02/2024 4:[address] [facility] NRBC% auto 0.0 % 08/02/2024 4:[address] [facility] NRBC Absolute <0.01 <0.01 x10(3)/mc L 08/02/2024 4:[address] [facility] Neutrophil % 77.7 % 08/02/2024 4:[address] [facility] Neutrophil Absolute (ANC) - Automated 6.62(H) 1.70 - 6.10 x10(3)/mc L 08/02/2024 4:[address] [facility] Lymph % 11.9 % 08/02/2024 4:[address] [facility] Lymph Absolute 1.01 0.90 - 3.20 x10(3)/mc L 08/02/2024 4:[address] [facility] Monocyte % 8.2 % 08/02/2024 4:[address] [facility] Monocyte Absolute 0.70 0.30 - 0.90 x10(3)/mc L 08/02/2024 4:[address] [facility] Eos % 1.4 % 08/02/2024 4:[address] [facility] Eos Absolute 0.12 0.00 - 0.40 x10(3)/mc L 08/02/2024 4:[address] [facility] Basophil % 0.4 % 08/02/2024 4:[address] [facility] Baso Absolute <0.04 0.00 - 0.10 x10(3)/mc L 08/02/2024 4:[address] [facility] Immature Gran % 0.4 % 4:[address] [facility] Immature Gran Absolute <0.04 0.00 - 0.04 x10(3)/mc L 08/02/2024 4:[address] [facility] Blood VENOUS BLOOD SPECIMEN / Unknown Venipuncture / Unknown 08/02/2024 4:20 AM EST 08/02/2024 4:37 AM EST Bridgette Stauffer MD HEMATOLOGY ORDERABLE S [facility] [place] [address] * Magnesium (08/02/2024 4:20 AM EST) Magnesium 0.79 0.69 - 1.07 mMol/L 08/02/2024 5:[address] [facility] Blood VENOUS BLOOD SPECIMEN / Unknown Venipuncture / Unknown 08/02/2024 4:20 AM EST 08/02/2024 4:37 AM EST Bridgette Stauffer MD CHEMISTRY ORDERABLES [facility] [place] [address] * (ABNORMAL) Basic Metabolic Panel (08/02/2024 4:20 AM EST) Glucose 110 65 - 199 mg/dL 08/02/2024 5:[address] [facility] Comment:Glucose Concentratio n >=200 mg/dL plus symptoms is consistent with Diabetes Mellitus. Blood Urea Nitrogen 12 10 - 20 mg/dL 08/02/2024 5:[address] [facility] Creatinine 0.90 0.80 - 1.50 mg/dL 08/02/2024 5:[address] [facility] Sodium 139 135 - 145 mMol/L 08/02/2024 5:[address] [facility] Potassium 4.0 3.5 - 5.0 mMol/L 08/02/2024 5:[address] [facility] Chloride 108(H) 98 - 107 mMol/L 08/02/2024 5:[address] [facility] Carbon Dioxide 23 22 - 31 mMol/L 08/02/2024 5:[address] [facility] Anion Gap 8 5 - 15 mMol/L 08/02/2024 5:[address] [facility] Calcium 8.1(L) 8.5 - 10.5 mg/dL 08/02/2024 5:[address] [facility] Est Glomerular Filtration Rate - Male 91 mL/min/1. 73 m?? 08/02/2024 5:[address] [facility] Comment: This patient's estimated GFR [...] Stauffer MD CHEMISTRY ORDERABLES Performing Organization Address [facility] Co de Phone Number [facility] [place] [address] * Potassium (08/01/2024 8:39 PM EST) Potassium 4.0 3.5 - 5.0 mMol/L 08/01/2024 9:21 PM EST [facility] Blood VENOUS BLOOD SPECIMEN / Unknown Venipuncture / Unknown 08/01/2024 8:39 PM EST 08/01/2024 8:51 PM EST Jay Silverio MD CHEMISTRY ORDERABL ES Performing Organization Address [facility] Phone Number [facility] [place] [address] * POC, GLUCOSE (08/01/2024 8:35 PM EST) Glucometer, POC 112 65 - 199 mg/dL 08/01/2024 8:36 PM EST [facility] Comment:Supplemental ranges: <140 mg/dL before meals <180 mg/dL all other times of the day. Blood CAPILLARY BLOOD / Unknown 08/01/2024 8:35 PM EST 08/01/2024 8:36 PM EST Krystal Parker MD POINT OF CARE TEST O RDERABLES Performing Organization Address [facility] Co de Phone Number [facility] [place] [address] * POC, GLUCOSE (08/01/2024 4:55 PM EST) Glucometer, POC 99 65 - 199 mg/dL 08/01/2024 4:56 PM EST [facility] Comment:Supplemental ranges: <140 mg/dL before meals <180 mg/dL all other times of the day. Blood CAPILLARY BLOOD / Unknown 08/01/2024 4:55 PM EST 08/01/2024 4:56 PM EST Krystal Parker MD POINT OF CARE TEST O JOSH Performing Organization Address [facility] Co de Phone Number [facility] [place] [address] * POC, GLUCOSE (08/01/2024 12:42 PM EST) Glucometer, POC 130 65 - 199 mg/dL 08/01/2024 12:43 PM EST [facility] Comment:Supplemental ranges: <140 mg/dL before meals <180 mg/dL all other times of the day. Blood CAPILLARY BLOOD / Unknown 08/01/2024 12:42 PM EST 08/01/2024 12:43 PM EST Krystal Parker MD POINT OF CARE TEST O JOSH Performing Organization Address [facility] Co de Phone Number [facility] [place] [address] * (ABNORMAL) Cooximetry, POC (08/01/2024 10:45 AM EST) pO2, Coox 32 mmHg 08/01/2024 10:[address] [facility] Hemoglobin, Coox 12.9(L) 13.7 - 16.5 g/dL 08/01/2024 10:48 AM EST [facility] Oxyhemoglobin, Coox 66.7 % 08/01/2024 10:[address] [facility] Carboxyhemoglo bin, Coox 1.1 % 08/01/2024 10:[address] [facility] Comment: Nonsmokers: 0.5-1.5% COHB ?? Smokers: Variable ??but usually less than 10% ?? Toxic: 20-30% COHB ?? Lethal: Greater than 60% COHB Methemoglobin, Coox 0.3 <=1.5 % 08/01/2024 10:48 AM EST [facility] Blood (Mixed Venous) 08/01/2024 10:45 AM EST 08/01/2024 10:48 AM EST Krystal Parker MD POINT OF CARE TEST O RDERABLES Performing Organization Address [facility]/ZIP Co de Phone Number [facility] [place] [address] * Potassium (08/01/2024 8:20 AM EST) Potassium 4.0 3.5 - 5.0 mMol/L 08/01/2024 10:17 AM EST [facility] Blood ARTERIAL BLOOD / Unknown Venipuncture / Unknown 08/01/2024 8:20 AM EST 08/01/2024 8:30 AM EST Jay Silverio MD CHEMISTRY ORDERABL ES Performing Organization Address [facility] Co de Phone Number [facility] [place] [address] * POC, GLUCOSE (08/01/2024 7:44 AM EST) Glucometer, POC 86 65 - 199 mg/dL 08/01/2024 7:44 AM EST [facility] Comment:Supplemental ranges: <140 mg/dL before meals <180 mg/dL all other times of the day. Blood CAPILLARY BLOOD / Unknown 08/01/2024 7:44 AM EST 08/01/2024 7:44 AM EST Krystal Parker MD POINT OF CARE TEST O RDERABLES Performing Organization Address [facility]/ZIP Co de Phone Number [facility] [place] [address] * (ABNORMAL) CBC (with Diff) (08/01/2024 4:18 AM EST) White Blood Cell 8.51 4.00 - 9.50 x10(3)/mc L 08/01/2024 4:53 AM EST [facility] Red Blood Cell 4.12(L) 4.58 - 5.54 x10(6)/mc L 08/01/2024 4:[address] [facility] Hemoglobin 11.2(L) 13.7 - 16.5 g/dL 08/01/2024 4:[address] [facility] Hematocrit 33.8(L) 40.5 - 48.5 % 08/01/2024 4:[address] [facility] Mean Cell Volume 82.0(L) 82.9 - 93.1 fL 08/01/2024 4:[address] [facility] Mean Cell Hemoglobin 27.2(L) 27.5 - 32.1 pg 08/01/2024 4:[address] [facility] Mean Cell Hemoglobin Concentration 33.1 32.0 - 35.7 g/dL 08/01/2024 4:[address] [facility] Platelet 94(L) 145 - 357 x10(3)/mc L 08/01/2024 4:[address] [facility] Mean Platelet Volume 10.9 7.6 - 12.9 fL 08/01/2024 4:[address] [facility] RDW Standard Deviation 44.2 36.0 - 45.0 fL 08/01/2024 4:[address] [facility] RDW coefficient of variation 14.7(H) 11.4 - 13.8 % 08/01/2024 4:[address] [facility] NRBC% auto 0.0 % 08/01/2024 4:[address] [facility] NRBC Absolute <0.01 <0.01 x10(3)/mc L 08/01/2024 4:[address] [facility] Neutrophil % 82.7 % 08/01/2024 4:[address] [facility] Neutrophil Absolute (ANC) - Automated 7.04(H) 1.70 - 6.10 x10(3)/mc L 08/01/2024 4:[address] [facility] Lymph % 8.6 % 08/01/2024 4:[address] [facility] Lymph Absolute 0.73(L) 0.90 - 3.20 x10(3)/mc L 08/01/2024 4:[address] [facility] Monocyte % 7.6 % 08/01/2024 4:[address] [facility] Monocyte Absolute 0.65 0.30 - 0.90 x10(3)/mc L 08/01/2024 4:[address] [facility] Eos % 0.5 % 08/01/2024 4:[address] [facility] Eos Absolute 0.04 0.00 - 0.40 x10(3)/mc L 08/01/2024 4:[address] [facility] Basophil % 0.2 % 08/01/2024 4:[address] [facility] Baso Absolute <0.04 0.00 - 0.10 x10(3)/mc L 08/01/2024 4:[address] [facility] Immature Gran % 0.4 % 4:[address] [facility] Immature Gran Absolute <0.04 0.00 - 0.04 x10(3)/mc L 08/01/2024 4:[address] [facility] Blood VENOUS BLOOD SPECIMEN / Unknown Venipuncture / Unknown 08/01/2024 4:18 AM EST 08/01/2024 4:29 AM EST Bridgette Stauffer MD HEMATOLOGY ORDERABLE S [facility] [place] [address] * Magnesium (08/01/2024 4:18 AM EST) Magnesium 0.74 0.69 - 1.07 mMol/L 08/01/2024 5:[address] [facility] Blood VENOUS BLOOD SPECIMEN / Unknown Venipuncture / Unknown 08/01/2024 4:18 AM EST 08/01/2024 4:29 AM EST Bridgette Stauffer MD CHEMISTRY ORDERABLES [facility] [place] [address] * (ABNORMAL) Basic Metabolic Panel (08/01/2024 4:18 AM EST) Glucose 107 65 - 199 mg/dL 08/01/2024 5:[address] [facility] Comment:Glucose Concentratio n >=200 mg/dL plus symptoms is consistent with Diabetes Mellitus. Blood Urea Nitrogen 8(L) 10 - 20 mg/dL 08/01/2024 5:[address] [facility] Creatinine 0.82 0.80 - 1.50 mg/dL 08/01/2024 5:[address] [facility] Sodium 137 135 - 145 mMol/L 08/01/2024 5:[address] [facility] Potassium 3.9 3.5 - 5.0 mMol/L 08/01/2024 5:[address] [facility] Chloride 108(H) 98 - 107 mMol/L 08/01/2024 5:[address] [facility] Carbon Dioxide 21(L) 22 - 31 mMol/L 08/01/2024 5:[address] [facility] Anion Gap 8 5 - 15 mMol/L 08/01/2024 5:[address] [facility] Calcium 7.7(L) 8.5 - 10.5 mg/dL 08/01/2024 5:[address] [facility] Est Glomerular Filtration Rate - Male 93 mL/min/1. 73 m?? 08/01/2024 5:[address] [facility] Comment: This patient's estimated GFR [...] Stauffer MD CHEMISTRY ORDERABLES Performing Organization Address [facility] Co de Phone Number [facility] [place] [address] * POC, GLUCOSE (07/31/2024 8:41 PM EST) [facility] Signature Glucometer, POC 73 65 - 199 mg/dL 07/31/2024 8:41 PM EST [facility] Comment:Supplemental ranges: <140 mg/dL before meals <180 mg/dL all other times of the day. Blood CAPILLARY BLOOD / Unknown 07/31/2024 8:41 PM EST 07/31/2024 8:41 PM EST Krystal Parker MD POINT OF CARE TEST O RDERABLES Performing Organization Address [facility] Co de Phone Number [facility] [place] [address] * CARDIAC CATHETERIZATION (07/31/2024 5:53 PM EST) Anatomical Region Laterality Modality Other Narrative 08/01/2024 12:37 PM EST ?[facility] ? Cardiac Catheterization/Intervention Report ? Patient Name: Korey Montoya. ? Procedure Date: 07/31/2024 ? A #: [id number] ? Primary Physician: Janelle, Maldonado T ? Case #: [id number] ? File Name: [id number] ? Catheterization Order Number: [id number] ? [facility] ? Final Report [place], [place] ? Patient Name: ? Korey P. Montoya ?ID#: ?[id number] ? : ?1950 ? Procedure Date: ? July 31, 2024 ?Case #: ? [id number] ? Room: ? 1 ? Case Physician: [...] ? Comments: ?Impella removed from the right [employer] with deployment of Perclose and ?Angioseal. ??Good [...] Procedure Note Maldonado Luis MD - 08/01/2024 [facility] Cardiac Catheterization/Intervention Report Patient Name: Korey MontoyaToby Procedure Date: 07/31/2024 A #: [id number] Primary Physician: Maldonado Luis Case #: [id number] File Name: [id number] Catheterization Order Number: [id number] [facility] FinalReport [place], [place] Patient Name: Korey Montoya ID#:[id number] :1950 Procedure Date: July 31, 2024 Case [...] designated as ASA Class IV. The [facility] clinical frailtyscale is 4: Vulnerable. Diagnostic [...] procedures. Comments: Impella removed from the right [employer] with deployment of Perclose and Angioseal. Good [...] * POC, GLUCOSE (07/31/2024 11:04 AM EST) [facility] Glucometer, POC 82 65 - 199 mg/dL 07/31/2024 11:04 AM EST [facility] Comment:Supplemental ranges: <140 mg/dL before meals <180 mg/dL all other times of the day. Blood CAPILLARY BLOOD / Unknown 07/31/2024 11:04 AM EST 07/31/2024 11:04 AM EST Krystal Parker MD POINT OF CARE TEST O RDERABLES [facility] [place] [address] * (ABNORMAL) Blood Gas, Arterial POC (07/31/2024 8:29 AM EST) [facility] pH, Arterial 7.48(H) 7.35 - 7.45 07/31/2024 8:30 AM EST [facility] PCO2, Arterial 29(L) 35 - 45 mmHg 07/31/2024 8:30 AM EST [facility] PO2, Arterial 71(L) 85 - 104 mmHg 07/31/2024 8:30 AM EST [facility] Bicarbonate, Arterial 20.6 20.0 - 26.0 mmol/L 07/31/2024 8:30 AM EST [facility] Base Excess, Arterial -3.0 -3.0 - 3.0 mmol/L 07/31/2024 8:[address] [facility] Hemoglobin, Arterial 12.3(L) 13.7 - 16.5 g/dL 07/31/2024 8:[address] [facility] Oxyhemoglobin, Arterial 94.4 94.0 - 97.0 % 07/31/2024 8:[address] [facility] Carboxyhemoglobin , Arterial 0.7 % 07/31/2024 8:[address] [facility] Comment: Nonsmokers: 0.5-1.5% COHB ?? Smokers: Variable ??but usually less than 10% ?? Toxic: 20-30% COHB ?? Lethal: Greater than 60% COHB Methemoglobin, Arterial 0.3 <=1.5 % 07/31/2024 8:[address] [facility] Sodium, Arterial 138 135 - 145 mmol/L 07/31/2024 8:[address] [facility] Potassium, Arterial 3.5 3.5 - 5.0 mmol/L 07/31/2024 8:[address] [facility] Chloride, Arterial 109(H) 98 - 107 mmol/L 07/31/2024 8:[address] [facility] Lactate, Arterial 0.8 0.5 - 2.2 mmol/L 07/31/2024 8:[address] [facility] Fraction of Inspired Oxygen 21 % 07/31/2024 8:[address] [facility] PF Ratio 338 Ratio 07/31/2024 8:[address] [facility] Comment:PF ratio calculated using the non-temperature corrected pO2 result. IONIZED CALCIUM, ARTERIAL 1.08(L) 1.15 - 1.33 mmol/L 07/31/2024 8:[address] [facility] Glucose, Arterial 86 65 - 199 mg/dL 07/31/2024 8:[address] [facility] Comment:Glucose Concentratio n >=200 mg/dL plus symptoms is consistent with Diabetes Mellitus. Blood ARTERIAL BLOOD / Unknown 07/31/2024 8:29 AM EST 07/31/2024 8:30 AM EST Krystal Parker MD POINT OF CARE TEST O JOSH Performing Organization Address City/[facility]/ZIP Co de Phone Number [facility] [place] [address] * POC, GLUCOSE (07/31/2024 7:47 AM EST) Pathologist [facility] Glucometer, POC 82 65 - 199 mg/dL 07/31/2024 7:53 AM EST [facility] Comment:Supplemental ranges: <140 mg/dL before meals <180 mg/dL all other times of the day. Blood CAPILLARY BLOOD / Unknown 07/31/2024 7:47 AM EST 07/31/2024 7:53 AM EST Krystal Parker MD POINT OF CARE TEST O JOSH Performing Organization Address [facility] Co de Phone Number [facility] [place] [address] * (ABNORMAL) CBC (with Diff) (07/31/2024 1:08 AM EST) [facility] White Blood Cell 10.25(H) 4.00 - 9.50 x10(3)/mc L 07/31/2024 1:[address] [facility] Red Blood Cell 4.13(L) 4.58 - 5.54 x10(6)/mc L 07/31/2024 1:[address] [facility] Hemoglobin 11.2(L) 13.7 - 16.5 g/dL 07/31/2024 1:[address] [facility] Hematocrit 33.9(L) 40.5 - 48.5 % 07/31/2024 1:[address] [facility] Mean Cell Volume 82.1(L) 82.9 - 93.1 fL 07/31/2024 1:[address] [facility] Mean Cell Hemoglobin 27.1(L) 27.5 - 32.1 pg 07/31/2024 1:[address] [facility] Mean Cell Hemoglobin Concentration 33.0 32.0 - 35.7 g/dL 07/31/2024 1:[address] [facility] Platelet 109(L) 145 - 357 x10(3)/mc L 07/31/2024 1:[address] [facility] Mean Platelet Volume 10.4 7.6 - 12.9 fL 07/31/2024 1:[address] [facility] RDW Standard Deviation 45.1(H) 36.0 - 45.0 fL 07/31/2024 1:[address] [facility] RDW coefficient of variation 15.1(H) 11.4 - 13.8 % 07/31/2024 1:[address] [facility] NRBC% auto 0.0 % 07/31/2024 1:[address] [facility] NRBC Absolute <0.01 <0.01 x10(3)/mc L 07/31/2024 1:[address] [facility] Neutrophil % 79.7 % 07/31/2024 1:[address] [facility] Neutrophil Absolute (ANC) - Automated 8.17(H) 1.70 - 6.10 x10(3)/mc L 07/31/2024 1:[address] [facility] Lymph % 12.8 % 07/31/2024 1:[address] [facility] Lymph Absolute 1.31 0.90 - 3.20 x10(3)/mc L 07/31/2024 1:[address] [facility] Monocyte % 6.9 % 07/31/2024 1:[address] [facility] Monocyte Absolute 0.71 0.30 - 0.90 x10(3)/mc L 07/31/2024 1:[address] [facility] Eos % 0.1 % 07/31/2024 1:[address] [facility] Eos Absolute <0.04 0.00 - 0.40 x10(3)/mc L 07/31/2024 1:28 AM EST [facility] Basophil % 0.3 % 07/31/2024 1:28 AM EST [facility] Baso Absolute <0.04 0.00 - 0.10 x10(3)/mc L 07/31/2024 1:28 AM EST [facility] Immature Gran % 0.2 % 1:28 AM EST [facility] Immature Gran Absolute <0.04 0.00 - 0.04 x10(3)/mc L 07/31/2024 1:28 AM EST [facility] Blood VENOUS BLOOD SPECIMEN / Unknown Venipuncture / Unknown 07/31/2024 1:08 AM EST 07/31/2024 1:18 AM EST Bridgette Stauffer MD HEMATOLOGY ORDERABLE S Performing Organization Address City/[facility]/ZIP Co de Phone Number [facility] [place] [address] * Magnesium (07/31/2024 1:08 AM EST) Magnesium 0.89 0.69 - 1.07 mMol/L 07/31/2024 1:46 AM EST [facility] Blood VENOUS BLOOD SPECIMEN / Unknown Venipuncture / Unknown 07/31/2024 1:08 AM EST 07/31/2024 1:18 AM EST Bridgette Stauffer MD CHEMISTRY ORDERABLES [facility] [place] [address] * (ABNORMAL) Basic Metabolic Panel (07/31/2024 1:08 AM EST) Glucose 97 65 - 199 mg/dL 07/31/2024 1:46 AM EST [facility] Comment:Glucose Concentratio n >=200 mg/dL plus symptoms is consistent with Diabetes Mellitus. Blood Urea Nitrogen 11 10 - 20 mg/dL 07/31/2024 1:[address] [facility] Creatinine 0.96 0.80 - 1.50 mg/dL 07/31/2024 1:46 AM EST [facility] Sodium 140 135 - 145 mMol/L 07/31/2024 1:[address] [facility] Potassium 4.1 3.5 - 5.0 mMol/L 07/31/2024 1:46 AM EST [facility] Chloride 110(H) 98 - 107 mMol/L 07/31/2024 1:[address] [facility] Carbon Dioxide 24 22 - 31 mMol/L 07/31/2024 1:[address] [facility] Anion Gap 6 5 - 15 mMol/L 07/31/2024 1:[address] [facility] Calcium 7.7(L) 8.5 - 10.5 mg/dL 07/31/2024 1:[address] [facility] Est Glomerular Filtration Rate - Male 84 mL/min/1. 73 m?? 07/31/2024 1:[address] [facility] Comment: This patient's estimated GFR [...] AM EST Bridgette Stauffer MD CHEMISTRY ORDERABLES [facility] [place] [address] * (ABNORMAL) Hepatic Function Panel (07/31/2024 1:08 AM EST) Albumin 3.1(L) 3.2 - 5.2 g/dL 07/31/2024 1:[address] [facility] Aspartate Aminotransferase 192(H) <=39 unit/L 07/31/2024 1:[address] [facility] Alanine Aminotransferase 59(H) 0 - 55 unit/L 07/31/2024 1:[address] [facility] Alkaline Phosphatase 46 40 - 130 unit/L 07/31/2024 1:[address] [facility] Bilirubin, Total 0.4 <=1.3 mg/dL 07/31/2024 1:[address] [facility] Bilirubin, Direct <0.2 0.0 - 0.3 mg/dL 07/31/2024 1:[address] [facility] Protein, Total 5.0(L) 6.1 - 8.0 g/dL 07/31/2024 1:[address] [facility] Blood VENOUS BLOOD SPECIMEN / Unknown Venipuncture / Unknown 07/31/2024 1:08 AM EST 07/31/2024 1:18 AM EST Krystal Parker MD CHEMISTRY ORDERABLES [facility] [place] [address] * POC, GLUCOSE (07/30/2024 8:03 PM EST) Glucometer, POC 86 65 - 199 mg/dL 07/30/2024 8:[address] [facility] Comment:Supplemental ranges: <140 mg/dL before meals <180 mg/dL all other times of the day. Blood CAPILLARY BLOOD / Unknown 07/30/2024 8:03 PM EST 07/30/2024 8:03 PM EST Krystal Parker MD POINT OF CARE TEST O RDERABLES Performing Organization Address City/[facility]/ZIP Co de Phone Number [facility] [place] [address] * Potassium (07/30/2024 8:03 PM EST) Potassium 3.8 3.5 - 5.0 mMol/L 07/30/2024 9:13 PM EST [facility] Blood VENOUS BLOOD SPECIMEN / Unknown Venipuncture / Unknown 07/30/2024 8:03 PM EST 07/30/2024 8:22 PM EST Jay Silverio MD CHEMISTRY ORDERABL ES Performing Organization Address [facility] Co de Phone Number [facility] [place] [address] * POC, GLUCOSE (07/30/2024 6:23 PM EST) Glucometer, POC 93 65 - 199 mg/dL 07/30/2024 6:24 PM EST [facility] Comment:Supplemental ranges: <140 mg/dL before meals <180 mg/dL all other times of the day. Blood CAPILLARY BLOOD / Unknown 07/30/2024 6:23 PM EST 07/30/2024 6:24 PM EST Krystal Parker MD POINT OF CARE TEST O RDERABLES Performing Organization Address [facility]/ZIP Co de Phone Number [facility] [place] [address] * POC, GLUCOSE (07/30/2024 5:08 PM EST) Glucometer, POC 78 65 - 199 mg/dL 07/30/2024 5:08 PM EST [facility] Comment:Supplemental ranges: <140 mg/dL before meals <180 mg/dL all other times of the day. Blood CAPILLARY BLOOD / Unknown 07/30/2024 5:08 PM EST 07/30/2024 5:08 PM EST Krystal Parker MD POINT OF CARE TEST O RDERABLES Performing Organization Address [facility]/ZIP Co de Phone Number [facility] [place] [address] * (ABNORMAL) Phosphorus (07/30/2024 3:08 PM EST) Phosphorus 2.1(L) 2.5 - 4.5 mg/dL 07/30/2024 3:58 PM EST [facility] Blood VENOUS BLOOD SPECIMEN / Unknown Venipuncture / Unknown 07/30/2024 3:08 PM EST 07/30/2024 3:12 PM EST Jay Silverio MD CHEMISTRY ORDERABL ES Performing Organization Address [facility] Co de Phone Number [facility] [place] [address] * Magnesium (07/30/2024 3:08 PM EST) Magnesium 0.90 0.69 - 1.07 mMol/L 07/30/2024 3:58 PM EST [facility] Blood VENOUS BLOOD SPECIMEN / Unknown Venipuncture / Unknown 07/30/2024 3:08 PM EST 07/30/2024 3:12 PM EST Jay Silverio MD CHEMISTRY ORDERABL ES Performing Organization Address City/[facility]/ZIP Co de Phone Number [facility] [place] [address] * (ABNORMAL) Basic Metabolic Panel (07/30/2024 3:08 PM EST) Glucose 105 65 - 199 mg/dL 07/30/2024 4:17 PM EST [facility] Comment:Glucose Concentratio n >=200 mg/dL plus symptoms is consistent with Diabetes Mellitus. Blood Urea Nitrogen 13 10 - 20 mg/dL 07/30/2024 4:17 PM EST [facility] Creatinine 1.01 0.80 - 1.50 mg/dL 07/30/2024 4:17 PM EST [facility] Sodium 141 135 - 145 mMol/L 07/30/2024 4:17 PM EST [facility] Potassium 3.4(L) 3.5 - 5.0 mMol/L 07/30/2024 4:[address] [facility] Chloride 109(H) 98 - 107 mMol/L 07/30/2024 4:[address] [facility] Carbon Dioxide 21(L) 22 - 31 mMol/L 07/30/2024 4:17 PM EST [facility] Anion Gap 11 5 - 15 mMol/L 07/30/2024 4:[address] [facility] Calcium 7.9(L) 8.5 - 10.5 mg/dL 07/30/2024 4:[address] [facility] Est Glomerular Filtration Rate - Male 79 mL/min/1. 73 m?? 07/30/2024 4:[address] [facility] Comment: This patient's estimated GFR [...] EST Jay Silverio MD CHEMISTRY ORDERABL ES [facility] [place] [address] * ECHO LMTD W CONTRAST W LMTD SPEC DOPP COLOR DOPP (07/30/2024 11:42 AM EST) Anatomical Region Laterality Modality Cardiac Other 07/30/2024 10:2 2 AM EST Narrative 07/30/2024 12:34 PM EST [address] [place] [address] ? Echocardiogram Report Name: KOREY MONTOYA ? Study Date: 07/30/2024 10:22 AMBP: 124/66 mmHg : 1950 ? Height: 168 cm ? Account: [id number] Age: 74 yrs ? Weight: 65 kg [...] Compared to the overnight study by the insurance verification representative fellow the impella position is stable. 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 Procedure Limited - 66138. Image enhancement Definity was used for both [...] Banda MD - 07/30/2024 [address] [place] [address] Echocardiogram Report Name: KOREY MONTOYA Study Date: 410:22 AMBP: 124/66 mmHg : 1950 Height: 168 cm Account: [id number] Age: 74 yrs Weight: 65 kg Gender: [...] Compared to the overnight study by the insurance verification representative fellow the impella positionis stable. The global left ventricular systolic function has improvedpredominantly via recruitment outside the LAD territory which remains akinetic. Procedure Limited - 99259. Image enhancement Definity was used for both [...] - 199 mg/dL 07/30/2024 11:17 AM EST [facility] Comment:Supplemental ranges: <140 mg/dL before meals <180 mg/dL all other times of the day. Blood CAPILLARY BLOOD / Unknown 07/30/2024 11:17 AM EST 07/30/2024 11:17 AM EST Jay Silverio MD POINT OF CARE TEST ORDERABLES [facility] [place] [address] * (ABNORMAL) Blood Gas, Arterial POC (07/30/2024 8:16 AM EST) pH, Arterial 7.44 7.35 - 7.45 07/30/2024 8:17 AM EST [facility] PCO2, Arterial 29(L) 35 - 45 mmHg 07/30/2024 8:17 AM EST [facility] PO2, Arterial 109(H) 85 - 104 mmHg 07/30/2024 8:17 AM EST [facility] Bicarbonate, Arterial 19.4(L) 20.0 - 26.0 mmol/L 07/30/2024 8:[address] [facility] Base Excess, Arterial -4.7(L) -3.0 - 3.0 mmol/L 07/30/2024 8:[address] [facility] Hemoglobin, Arterial 12.2(L) 13.7 - 16.5 g/dL 07/30/2024 8:[address] [facility] Oxyhemoglobin, Arterial 97.1(H) 94.0 - 97.0 % 07/30/2024 8:[address] [facility] Carboxyhemoglob in, Arterial 1.0 % 07/30/2024 8:[address] [facility] Comment: Nonsmokers: 0.5-1.5% COHB ?? Smokers: Variable ??but usually less than 10% ?? Toxic: 20-30% COHB ?? Lethal: Greater than 60% COHB Methemoglobin, Arterial 0.1 <=1.5 % 07/30/2024 8:[address] [facility] Sodium, Arterial 132(L) 135 - 145 mmol/L 07/30/2024 8:[address] [facility] Potassium, Arterial 3.9 3.5 - 5.0 mmol/L 07/30/2024 8:[address] [facility] Chloride, Arterial 105 98 - 107 mmol/L 07/30/2024 8:[address] [facility] Lactate, Arterial 1.2 0.5 - 2.2 mmol/L 07/30/2024 8:[address] [facility] Fraction of Inspired Oxygen 21 % 07/30/2024 8:[address] [facility] PF Ratio 519 Ratio 07/30/2024 8:[address] [facility] Comment:PF ratio calculated using the non-temperature corrected pO2 result. IONIZED CALCIUM, ARTERIAL 1.15 1.15 - 1.33 mmol/L 07/30/2024 8:[address] [facility] Blood ARTERIAL BLOOD / Unknown 07/30/2024 8:16 AM EST 07/30/2024 8:17 AM EST Jay Silverio MD POINT OF CARE TEST ORDERABLES Performing Organization Address City/[facility]/ZIP Co de Phone Number [facility] [place] [address] * (ABNORMAL) Troponin - Single (07/30/2024 8:09 AM EST) Troponin-T, High Sensitivity 8,651(H) <=22 ng/L 07/30/2024 9:06 AM EST [facility] Comment: This patient's troponin T [...] can be found in the [facility] Test Catalog Troponin - [email or web address].org/catalogs/565/files/93592 Reference: Fourth [place] Definition of Myocardial Infarction. Journal of the [place] [employer] 2018;72:0529-3302 Blood VENOUS BLOOD SPECIMEN / Unknown Venipuncture / Unknown 07/30/2024 8:09 AM EST 07/30/2024 8:26 AM EST Jay Sliverio MD CHEMISTRY ORDERABL ES Performing Organization Address City/[facility]/ZIP Co de Phone Number [facility] [place] [address] * POC, GLUCOSE (07/30/2024 7:40 AM EST) Pathologist [facility] Glucometer, POC 111 65 - 199 mg/dL 07/30/2024 7:40 AM EST [facility] Comment:Supplemental ranges: <140 mg/dL before meals <180 mg/dL all other times of the day. Blood CAPILLARY BLOOD / Unknown 07/30/2024 7:40 AM EST 07/30/2024 7:40 AM EST Jay Silverio MD POINT OF CARE TEST ORDERABLES [facility] [place] [address] * (ABNORMAL) CBC (with Diff) (07/30/2024 2:11 AM EST) [facility] White Blood Cell 11.25(H) 4.00 - 9.50 x10(3)/mc L 07/30/2024 2:[address] [facility] Red Blood Cell 4.50(L) 4.58 - 5.54 x10(6)/mc L 07/30/2024 2:[address] [facility] Hemoglobin 12.2(L) 13.7 - 16.5 g/dL 07/30/2024 2:[address] [facility] Hematocrit 37.1(L) 40.5 - 48.5 % 07/30/2024 2:[address] [facility] Mean Cell Volume 82.4(L) 82.9 - 93.1 fL 07/30/2024 2:[address] [facility] Mean Cell Hemoglobin 27.1(L) 27.5 - 32.1 pg 07/30/2024 2:[address] [facility] Mean Cell Hemoglobin Concentration 32.9 32.0 - 35.7 g/dL 07/30/2024 2:[address] [facility] Platelet 166 145 - 357 x10(3)/mc L 07/30/2024 2:[address] [facility] Mean Platelet Volume 10.6 7.6 - 12.9 fL 07/30/2024 2:[address] [facility] RDW Standard Deviation 44.6 36.0 - 45.0 fL 07/30/2024 2:[address] [facility] RDW coefficient of variation 14.6(H) 11.4 - 13.8 % 07/30/2024 2:[address] [facility] NRBC% auto 0.0 % 07/30/2024 2:[address] [facility] NRBC Absolute <0.01 <0.01 x10(3)/mc L 07/30/2024 2:[address] [facility] Neutrophil % 88.9 % 07/30/2024 2:[address] [facility] Neutrophil Absolute (ANC) - Automated 10.00(H) 1.70 - 6.10 x10(3)/mc L 07/30/2024 2:[address] [facility] Lymph % 5.1 % 07/30/2024 2:[address] [facility] Lymph Absolute 0.57(L) 0.90 - 3.20 x10(3)/mc L 07/30/2024 2:[address] [facility] Monocyte % 5.4 % 07/30/2024 2:[address] [facility] Monocyte Absolute 0.61 0.30 - 0.90 x10(3)/mc L 07/30/2024 2:[address] [facility] Eos % 0.0 % 07/30/2024 2:[address] [facility] Eos Absolute <0.04 0.00 - 0.40 x10(3)/mc L 07/30/2024 2:[address] [facility] Basophil % 0.2 % 07/30/2024 2:[address] [facility] Baso Absolute <0.04 0.00 - 0.10 x10(3)/mc L 07/30/2024 2:[address] [facility] Immature Gran % 0.4 % 2:33 AM EST [facility] Immature Gran Absolute 0.05(H) 0.00 - 0.04 x10(3)/mc L 07/30/2024 2:[address] [facility] Blood VENOUS BLOOD SPECIMEN / Unknown Venipuncture / Unknown 07/30/2024 2:11 AM EST 07/30/2024 2:22 AM EST Bridgette Stauffer MD HEMATOLOGY ORDERABLE S Performing Organization Address [facility]/ZIP Co de Phone Number [facility] [place] [address] * Magnesium (07/30/2024 2:11 AM EST) Pathologist [facility] Magnesium 1.01 0.69 - 1.07 mMol/L 07/30/2024 2:[address] [facility] Blood VENOUS BLOOD SPECIMEN / Unknown Venipuncture / Unknown 07/30/2024 2:11 AM EST 07/30/2024 2:22 AM EST Bridgette Stauffer MD CHEMISTRY ORDERABLES Performing Organization Address City/[facility] Co de Phone Number [facility] [place] [address] * (ABNORMAL) Basic Metabolic Panel (07/30/2024 2:11 AM EST) Pathologist [facility] Glucose 190 65 - 199 mg/dL 07/30/2024 2:[address] [facility] Comment:Glucose Concentratio n >=200 mg/dL plus symptoms is consistent with Diabetes Mellitus. Blood Urea Nitrogen 15 10 - 20 mg/dL 07/30/2024 2:[address] [facility] Creatinine 0.88 0.80 - 1.50 mg/dL 07/30/2024 2:[address] [facility] Sodium 135 135 - 145 mMol/L 07/30/2024 2:[address] [facility] Potassium 4.9 3.5 - 5.0 mMol/L 07/30/2024 2:51 AM EST [facility] Chloride 105 98 - 107 mMol/L 07/30/2024 2:[address] [facility] Carbon Dioxide 19(L) 22 - 31 mMol/L 07/30/2024 2:[address] [facility] Anion Gap 11 5 - 15 mMol/L 07/30/2024 2:[address] [facility] Calcium 7.7(L) 8.5 - 10.5 mg/dL 07/30/2024 2:51 AM EST [facility] Est Glomerular Filtration Rate - Male 91 mL/min/1. 73 m?? 07/30/2024 2:[address] [facility] Comment: This patient's estimated GFR [...] AM EST Bridgette Stauffer MD CHEMISTRY ORDERABLES [facility] [place] [address] * (ABNORMAL) Cooximetry, POC (07/30/2024 1:00 AM EST) pO2, Coox 28 mmHg 07/30/2024 1:[address] [facility] Hemoglobin, Coox 12.7(L) 13.7 - 16.5 g/dL 07/30/2024 1:[address] [facility] Oxyhemoglobin, Coox 54.9 % 07/30/2024 1:[address] [facility] Carboxyhemoglo bin, Coox 1.0 % 07/30/2024 1:[address] [facility] Comment: Nonsmokers: 0.5-1.5% COHB ?? Smokers: Variable ??but usually less than 10% ?? Toxic: 20-30% COHB ?? Lethal: Greater than 60% COHB Methemoglobin, Coox 0.0 <=1.5 % 07/30/2024 1:[address] [facility] Blood (Mixed Venous) 07/30/2024 1:00 AM EST 07/30/2024 1:03 AM EST Jay Silverio MD POINT OF CARE TEST ORDERABLES Performing Organization Address City/State/[facility] Co de Phone Number [facility] [place] [address] * (ABNORMAL) Blood Gas, Arterial POC (07/30/2024 12:57 AM EST) pH, Arterial 7.38 7.35 - 7.45 07/30/2024 12:[address] [facility] PCO2, Arterial 34(L) 35 - 45 mmHg 07/30/2024 12:[address] [facility] PO2, Arterial 141(H) 85 - 104 mmHg 07/30/2024 12:[address] [facility] Bicarbonate, Arterial 19.5(L) 20.0 - 26.0 mmol/L 07/30/2024 12:[address] [facility] Base Excess, Arterial -5.6(L) -3.0 - 3.0 mmol/L 07/30/2024 12:[address] [facility] Hemoglobin, Arterial 13.0(L) 13.7 - 16.5 g/dL 07/30/2024 12:[address] [facility] Oxyhemoglobin, Arterial 98.4(H) 94.0 - 97.0 % 07/30/2024 12:[address] [facility] Carboxyhemoglobin , Arterial 0.4 % 07/30/2024 12:[address] [facility] Comment: Nonsmokers: 0.5-1.5% COHB ?? Smokers: Variable ??but usually less than 10% ?? Toxic: 20-30% COHB ?? Lethal: Greater than 60% COHB Methemoglobin, Arterial 0.1 <=1.5 % 07/30/2024 12:[address] [facility] Sodium, Arterial 130(L) 135 - 145 mmol/L 07/30/2024 12:[address] [facility] Potassium, Arterial 4.5 3.5 - 5.0 mmol/L 07/30/2024 12:[address] [facility] Chloride, Arterial 104 98 - 107 mmol/L 07/30/2024 12:[address] [facility] Lactate, Arterial 1.3 0.5 - 2.2 mmol/L 07/30/2024 12:[address] [facility] Flow Rate 2.0 L/min 07/30/2024 12:[address] [facility] IONIZED CALCIUM, ARTERIAL 1.12(L) 1.15 - 1.33 mmol/L 07/30/2024 12:[address] [facility] Glucose, Arterial 184 65 - 199 mg/dL 07/30/2024 12:[address] [facility] Comment:Glucose Concentratio n >=200 mg/dL plus symptoms is consistent with Diabetes Mellitus. Blood ARTERIAL BLOOD / Unknown 07/30/2024 12:57 AM EST 07/30/2024 12:58 AM EST Jay Silverio MD POINT OF CARE TEST ORDERABLES [facility] [place] [address] * (ABNORMAL) Troponin - Single (07/29/2024 10:31 PM EST) Troponin-T, High Sensitivity >10,000(H ) <=22 ng/L 07/29/2024 11:03 PM EST [facility] Comment: This patient's troponin T [...] can be found in the [facility] Test Catalog Troponin - https://[facility]-.testcatalog.org/catalogs/565/files/32017 Reference: Fourth [place] Definition of Myocardial Infarction. Journal of the [place] [employer] 2018;72:4271-9927 Blood VENOUS BLOOD SPECIMEN / Unknown Venipuncture / Unknown 07/29/2024 10:31 PM EST 07/29/2024 10:36 PM EST Yrn Ward MD CHEMISTRY ORDERABL ES [facility] [place] [address] * Potassium (07/29/2024 8:11 PM EST) Potassium 4.1 3.5 - 5.0 mMol/L 07/29/2024 8:52 PM EST [facility] Blood VENOUS BLOOD SPECIMEN / Unknown Venipuncture / Unknown 07/29/2024 8:11 PM EST 07/29/2024 8:16 PM EST Jay Silverio MD CHEMISTRY ORDERABL ES Performing Organization Address City/[facility]/ZIP Co de Phone Number [facility] [place] [address] * (ABNORMAL) Troponin - Single (07/29/2024 8:11 PM EST) Troponin-T, High Sensitivity >10,000(H ) <=22 ng/L 07/29/2024 8:52 PM EST [facility] Comment: This patient's troponin T [...] can be found in the [facility] Test Catalog Troponin - https://[facility]-.testcatalog.org/catalogs/565/files/15092 Reference: Fourth [place] Definition of Myocardial Infarction. Journal of the [place] [employer] 2018;72:4661-7680 Blood VENOUS BLOOD SPECIMEN / Unknown Venipuncture / Unknown 07/29/2024 8:11 PM EST 07/29/2024 8:16 PM EST Jay Silverio MD CHEMISTRY ORDERABL ES [facility] [place] [address] * (ABNORMAL) Phosphorus (07/29/2024 8:11 PM EST) Phosphorus 2.1(L) 2.5 - 4.5 mg/dL 07/29/2024 8:52 PM EST [facility] Blood VENOUS BLOOD SPECIMEN / Unknown Venipuncture / Unknown 07/29/2024 8:11 PM EST 07/29/2024 8:16 PM EST Jay Silverio MD CHEMISTRY ORDERABL ES Performing Organization Address City/[facility]/ZIP Co de Phone Number [facility] [place] [address] * POC, GLUCOSE (07/29/2024 8:09 PM EST) Glucometer, POC 142 65 - 199 mg/dL 07/29/2024 8:09 PM EST [facility] Comment:Supplemental ranges: <140 mg/dL before meals <180 mg/dL all other times of the day. Blood CAPILLARY BLOOD / Unknown 07/29/2024 8:09 PM EST 07/29/2024 8:09 PM EST Jay Silverio MD POINT OF CARE TEST ORDERABLES Performing Organization Address City/[facility]/ZIP Co de Phone Number [facility] [place] [address] * ABORH RECHECK (07/29/2024 6:43 PM EST) ABORH Recheck AB POSITIVE 07/29/2024 10:13 PM EST [facility] Blood VENOUS BLOOD SPECIMEN / Unknown Venipuncture / Unknown 07/29/2024 6:43 PM EST 07/29/2024 7:15 PM EST Jay Silverio MD BLOOD BANK LAB ORD ERABLES Performing Organization Address City/[facility]/ZIP Co de Phone Number [facility] [place] [address] * POC, GLUCOSE (07/29/2024 5:57 PM EST) Glucometer, POC 166 65 - 199 mg/dL 07/29/2024 5:57 PM EST [facility] Comment:Supplemental ranges: <140 mg/dL before meals <180 mg/dL all other times of the day. Blood CAPILLARY BLOOD / Unknown 07/29/2024 5:57 PM EST 07/29/2024 5:57 PM EST Jay Silverio MD POINT OF CARE TEST ORDERABLES Performing Organization Address City/[facility]/ZIP Co de Phone Number [facility] [place] [address] * Type and screen ([facility] [place]JONG/MAGALIE) (07/29/2024 5:56 PM EST) [facility] ABORH Type AB POSITIVE 07/29/2024 9:44 PM EST [facility] PATIENT HISTORY Not Found 07/29/2024 9:44 PM EST [facility] Expires at [id number] on: 08/01/2024 07/29/2024 9:44 PM EST [facility] ANTIBODY SCREEN AUTOMATED Negative 07/29/2024 9:44 PM EST [facility] T&S only valid at [facility] [place] [facility] 07/29/2024 9:44 PM EST [facility] Blood VENOUS BLOOD SPECIMEN / Unknown Venipuncture / Unknown 07/29/2024 5:56 PM EST 07/29/2024 6:07 PM EST Narrative [facility] - 07/29/2024 9:44 PM EST This Type and Screen result is only valid at the [facility] [place] [facility] Jay Silverio MD BLOOD BANK LAB ORD ERABLES Performing Organization Address City/[facility]/ZIP Co de Phone Number [facility] [place] [address] * (ABNORMAL) Troponin - Single (07/29/2024 4:52 PM EST) [facility] Troponin-T, High Sensitivity >10,000(H ) <=22 ng/L 07/29/2024 5:25 PM EST [facility] Comment: This patient's troponin T [...] can be found in the [facility] Test Catalog Troponin - https://one-.testcatalog.org/catalogs/565/files/66028 Reference: Fourth [place] Definition of Myocardial Infarction. Journal of the [place] [employer] 2018;72:3861-2806 Blood VENOUS BLOOD SPECIMEN / Unknown Venipuncture / Unknown 07/29/2024 4:52 PM EST 07/29/2024 4:57 PM EST Jay Silverio MD CHEMISTRY ORDERABL ES Performing Organization Address City/State/[facility] Co de Phone Number [facility] [place] [address] * EKG 12 Lead (07/29/2024 4:21 PM EST) Ventricular rate 72 BPM MUSE SYSTEM Atrial Rate 72 BPM MUSE SYSTEM P-R Interval 168 ms MUSE SYSTEM QRS Duration 82 ms MUSE SYSTEM Q-T Interval 392 ms MUSE SYSTEM QTC Calculated (Bezet) 429 ms MUSE SYSTEM Calculated P [place] 71 degrees MUSE SYSTEM Calculated R [place] 77 degrees MUSE SYSTEM Calculated T [place] 28 degrees MUSE SYSTEM INTERPRETATION Sinus rhythm [...] 7.37 7.35 - 7.45 07/29/2024 4:[address] [facility] PCO2, Arterial 36 35 - 45 mmHg 07/29/2024 4:[address] [facility] PO2, Arterial 71(L) 85 - 104 mmHg 07/29/2024 4:[address] [facility] Bicarbonate, Arterial 20.4 20.0 - 26.0 mmol/L 07/29/2024 4:[address] [facility] Base Excess, Arterial -4.8(L) -3.0 - 3.0 mmol/L 07/29/2024 4:[address] [facility] Hemoglobin, Arterial 12.2(L) 13.7 - 16.5 g/dL 07/29/2024 4:[address] [facility] Oxyhemoglobin, Arterial 93.8(L) 94.0 - 97.0 % 07/29/2024 4:[address] [facility] Carboxyhemoglobin , Arterial 0.5 % 07/29/2024 4:[address] [facility] Comment: Nonsmokers: 0.5-1.5% COHB ?? Smokers: Variable ??but usually less than 10% ?? Toxic: 20-30% COHB ?? Lethal: Greater than 60% COHB Methemoglobin, Arterial 0.3 <=1.5 % 07/29/2024 4:[address] [facility] Sodium, Arterial 134(L) 135 - 145 mmol/L 07/29/2024 4:[address] [facility] Potassium, Arterial 4.2 3.5 - 5.0 mmol/L 07/29/2024 4:[address] [facility] Chloride, Arterial 107 98 - 107 mmol/L 07/29/2024 4:[address] [facility] Lactate, Arterial 1.5 0.5 - 2.2 mmol/L 07/29/2024 4:[address] [facility] Fraction of Inspired Oxygen 21 % 07/29/2024 4:[address] [facility] PF Ratio 338 Ratio 07/29/2024 4:[address] [facility] Comment:PF ratio calculated using the non-temperature corrected pO2 result. IONIZED CALCIUM, ARTERIAL 1.12(L) 1.15 - 1.33 mmol/L 07/29/2024 4:[address] [facility] Glucose, Arterial 181 65 - 199 mg/dL 07/29/2024 4:[address] [facility] Comment:Glucose Concentratio n >=200 mg/dL plus symptoms is consistent with Diabetes Mellitus. Blood ARTERIAL BLOOD / Unknown 07/29/2024 4:21 PM EST 07/29/2024 4:22 PM EST Jay Silverio MD POINT OF CARE TEST ORDERABLES Performing Organization Address City/State/ZIP Co ga Phone Number [facility] [place] [address] * POC, GLUCOSE (07/29/2024 4:19 PM EST) [facility] Signature Glucometer, POC 185 65 - 199 mg/dL 07/29/2024 4:[address] [facility] Comment:Supplemental ranges: <140 mg/dL before meals <180 mg/dL all other times of the day. Blood CAPILLARY BLOOD / Unknown 07/29/2024 4:19 PM EST 07/29/2024 4:19 PM EST Jay Silverio MD POINT OF CARE TEST ORDERABLES [facility] [place] [address] * Blood culture (07/29/2024 4:08 PM EST) Blood Culture No growth at 120 hours 08/03/2024 5:01 PM EST [facility] Blood VENOUS BLOOD SPECIMEN / Unknown Venipuncture / Unknown 07/29/2024 4:08 PM EST 07/29/2024 4:15 PM EST Jay Silverio MD MICROBIOLOGY - BLO OD ORDERABLES Performing Organization Address [facility] Co de Phone Number [facility] [place] [address] * Blood culture (07/29/2024 4:08 PM EST) Blood Culture No growth at 120 hours 08/03/2024 5:01 PM EST [facility] Blood VENOUS BLOOD SPECIMEN / Unknown Venipuncture / Unknown 07/29/2024 4:08 PM EST 07/29/2024 4:26 PM EST Jay Silverio MD MICROBIOLOGY - BLO OD ORDERABLES Performing Organization Address [facility] Co de Phone Number [facility] [place] [address] * XR Chest One View (07/29/2024 2:30 PM EST) WORKSTATION ID [id number] DH RAD Anatomical Region Laterality Modality Chest [...] who have questions please contact the health vocational childcare teacher that requested your imaging first. ? Electronically signed by: Chris Candelaria MD, [facility] ([phone]), at 07/29/2024 3:21 PM Narrative 07/29/2024 3:21 [...] patients who have questions please contactthe health vocational childcare teacher that requested your imaging first. Vahe Marvin MD IMG DX ORDERABLES * (ABNORMAL) APTT (07/29/2024 2:03 PM EST) Partial Thromboplastin Time >160(HHH) 25 - 37 sec 07/29/2024 2:56 PM EST [facility] Blood VENOUS BLOOD SPECIMEN / Unknown Venipuncture / Unknown 07/29/2024 2:03 PM EST 07/29/2024 2:13 PM EST Vahe Marvin MD HEMATOLOGY ORDERABLE S Performing Organization Address [facility]/ZIP Co de Phone Number [facility] [place] [address] * (ABNORMAL) Prothrombin Time (07/29/2024 2:03 PM EST) Prothrombin Time 14.2(H) 9.4 - 12.5 sec 07/29/2024 2:56 PM EST [facility] International Normalization Ratio 1.3 <=4.9 07/29/2024 2:56 PM EST [facility] Comment: An INR < 2.0 [...] MD HEMATOLOGY ORDERABLE S Performing Organization Address City/[facility]/ZIP Co de Phone Number [facility] [place] [address] * CRP, acute inflammation (07/29/2024 2:03 PM EST) C-Reactive Protein <3.0 <=4.9 mg/L 07/29/2024 2:52 PM EST [facility] Blood VENOUS BLOOD SPECIMEN / Unknown Venipuncture / Unknown 07/29/2024 2:03 PM EST 07/29/2024 2:14 PM EST Vahe Marvin MD CHEMISTRY ORDERABLES [facility] [place] [address] * Lipid Panel (Reflex Direct LDL) (07/29/2024 2:03 PM EST) [facility] Signature Cholesterol, Total 133 mg/dL 07/29/2024 2:[address] [facility] Comment: Desirable: < 200 mg/dL Borderline High: 200 - 239 mg/dL High: > or = 240 mg/dL Triglyceride 45 mg/dL 07/29/2024 2:[address] [facility] Comment: Normal: <150 mg/dL Borderline High: 150-199 mg/dL High: 200-499 mg/dL Very High: > or =500 mg/dL HDL Cholesterol 58 mg/dL 2:[address] [facility] Comment:Males: High Risk: <4 0 mg/dL LDL Cholesterol 64 mg/dL 4 2:[address] [facility] Comment: Desirable: <100 mg/dL Above Desirable: 100-129 mg/dL Borderline High: 130-159 mg/dL High: 160-189 mg/dL Very High: > or =190 mg/dL Note: LDL calculation updated to the NIH LDL formula as of 04/15/2024 Non-HDL Cholesterol 75 mg/dL 07/29/2024 2:[address] [facility] Comment: Desirable: <130 mg/dL Above Desirable: 130-159 mg/dL Borderline High: 160-189 mg/dL High: 190-219 mg/dL Very High: > or = 220 mg/dL Blood VENOUS BLOOD SPECIMEN / Unknown Venipuncture / Unknown 07/29/2024 2:03 PM EST 07/29/2024 2:14 PM EST [facility] - 07/29/2024 2:52 PM [...] ACC/AHA Guidelines (most recently Rolf et al. [facility] 06/15/22): * For individuals with atherosclerotic [...] Marvin MD CHEMISTRY ORDERABLES Performing Organization Address City/[facility]/ZIP Co de Phone Number [facility] [place] [address] * TSH [place] (07/29/2024 2:03 PM EST) Thyroid Stimulating Hormone 0.70 0.27 - 4.20 mcIU/mL 07/29/2024 2:52 PM EST [facility] Blood VENOUS BLOOD SPECIMEN / Unknown Venipuncture / Unknown 07/29/2024 2:03 PM EST 07/29/2024 2:14 PM EST Vahe Marvin MD CHEMISTRY ORDERABLES Performing Organization Address [facility] Co de Phone Number [facility] [place] [address] * Hemoglobin A1c (07/29/2024 2:03 PM EST) Hemoglobin A1c 5.3 4.3 - 5.6 % 07/29/2024 2:41 PM EST [facility] Comment: Per ADA guidelines, without [...] red blood cell turnover may not be member services representative of glycemic control. Reference Interval: 4.3 - 5.6% 5.7 - 6.4%: Consistent with prediabetes >=6.5%: Consistent with diagnosis of diabetes mellitus Estimated Average Glucose 07/29/2024 2:41 PM EST [facility] Comment:Estimated Average Gl ucose not appropriate for patients over 70 years of age. Blood VENOUS BLOOD SPECIMEN / Unknown Venipuncture / Unknown 07/29/2024 2:03 PM EST 07/29/2024 2:14 PM EST [facility] - 07/29/2024 2:41 PM EST Estimated average glucose (eAG) is calculated from the equation described in: Quinten ALVES, Rikki J, Reno R, et al. ??Translating the A1C assay into estimated average glucose values. ??Diabetes Care 2008:31(8):7666-7911. Additional resources are available on the ADA website (diabetes.org). Vahe Marvin MD CHEMISTRY ORDERABLES [facility] [place] [address] * (ABNORMAL) CBC (with Diff) (07/29/2024 2:03 PM EST) White Blood Cell 19.50(H) 4.00 - 9.50 x10(3)/mc L 07/29/2024 2:18 PM EST [facility] Red Blood Cell 4.81 4.58 - 5.54 x10(6)/mc L 07/29/2024 2:[address] [facility] Hemoglobin 13.1(L) 13.7 - 16.5 g/dL 07/29/2024 2:[address] [facility] Hematocrit 40.1(L) 40.5 - 48.5 % 07/29/2024 2:[address] [facility] Mean Cell Volume 83.4 82.9 - 93.1 fL 07/29/2024 2:[address] [facility] Mean Cell Hemoglobin 27.2(L) 27.5 - 32.1 pg 07/29/2024 2:[address] [facility] Mean Cell Hemoglobin Concentration 32.7 32.0 - 35.7 g/dL 07/29/2024 2:[address] [facility] Platelet 236 145 - 357 x10(3)/mc L 07/29/2024 2:[address] [facility] Mean Platelet Volume 10.6 7.6 - 12.9 fL 07/29/2024 2:[address] [facility] RDW Standard Deviation 43.7 36.0 - 45.0 fL 07/29/2024 2:[address] [facility] RDW coefficient of variation 14.3(H) 11.4 - 13.8 % 07/29/2024 2:[address] [facility] NRBC% auto 0.0 % 07/29/2024 2:[address] [facility] NRBC Absolute <0.01 <0.01 x10(3)/mc L 07/29/2024 2:[address] [facility] Neutrophil % 93.6 % 07/29/2024 2:[address] [facility] Neutrophil Absolute (ANC) - Automated 18.28(H) 1.70 - 6.10 x10(3)/mc L 07/29/2024 2:[address] [facility] Lymph % 2.7 % 07/29/2024 2:[address] [facility] Lymph Absolute 0.52(L) 0.90 - 3.20 x10(3)/mc L 07/29/2024 2:[address] [facility] Monocyte % 2.9 % 07/29/2024 2:[address] [facility] Monocyte Absolute 0.56 0.30 - 0.90 x10(3)/mc L 07/29/2024 2:[address] [facility] Eos % 0.0 % 07/29/2024 2:[address] [facility] Eos Absolute <0.04 0.00 - 0.40 x10(3)/mc L 07/29/2024 2:[address] [facility] Basophil % 0.3 % 07/29/2024 2:[address] [facility] Baso Absolute 0.05 0.00 - 0.10 x10(3)/mc L 07/29/2024 2:[address] [facility] Immature Gran % 0.5 % 2:18 PM EST [facility] Immature Gran Absolute 0.09(H) 0.00 - 0.04 x10(3)/mc L 07/29/2024 2:18 PM EST [facility] Blood VENOUS BLOOD SPECIMEN / Unknown Venipuncture / Unknown 07/29/2024 2:03 PM EST 07/29/2024 2:13 PM EST Vahe Marvin MD HEMATOLOGY ORDERABLE S Performing Organization Address City/[facility]/ZIP Co de Phone Number [facility] [place] [address] * Phosphorus (07/29/2024 2:03 PM EST) Phosphorus 2.5 2.5 - 4.5 mg/dL 07/29/2024 2:52 PM EST [facility] Blood VENOUS BLOOD SPECIMEN / Unknown Venipuncture / Unknown 07/29/2024 2:03 PM EST 07/29/2024 2:14 PM EST Vahe Marvin MD CHEMISTRY ORDERABLES Performing Organization Address [facility] Co de Phone Number [facility] [place] [address] * Magnesium (07/29/2024 2:03 PM EST) Magnesium 0.70 0.69 - 1.07 mMol/L 07/29/2024 2:52 PM EST [facility] Blood VENOUS BLOOD SPECIMEN / Unknown Venipuncture / Unknown 07/29/2024 2:03 PM EST 07/29/2024 2:14 PM EST Vahe Marvin MD CHEMISTRY ORDERABLES Performing Organization Address [facility] Co de Phone Number [facility] [place] [address] * (ABNORMAL) Comprehensive metabolic panel (07/29/2024 2:03 PM EST) Glucose 243(H) 65 - 199 mg/dL 07/29/2024 3:[address] [facility] Comment:Glucose Concentratio n >=200 mg/dL plus symptoms is consistent with Diabetes Mellitus. Blood Urea Nitrogen 13 10 - 20 mg/dL 07/29/2024 3:[address] [facility] Creatinine 0.88 0.80 - 1.50 mg/dL 07/29/2024 3:[address] [facility] Sodium 138 135 - 145 mMol/L 07/29/2024 3:[address] [facility] Potassium 3.6 3.5 - 5.0 mMol/L 07/29/2024 3:[address] [facility] Chloride 104 98 - 107 mMol/L 07/29/2024 3:[address] [facility] Carbon Dioxide 19(L) 22 - 31 mMol/L 07/29/2024 3:[address] [facility] Anion Gap 15 5 - 15 mMol/L 07/29/2024 3:[address] [facility] Calcium 8.0(L) 8.5 - 10.5 mg/dL 07/29/2024 3:[address] [facility] Protein, Total 6.0(L) 6.1 - 8.0 g/dL 07/29/2024 3:[address] [facility] Albumin 3.6 3.2 - 5.2 g/dL 07/29/2024 3:[address] [facility] Aspartate Aminotransferase 07/29/2024 3:[address] [facility] Comment:Unable to report due to hemolysis. Alanine Aminotransferase 56(H) 0 - 55 unit/L 07/29/2024 3:[address] [facility] Alkaline Phosphatase 58 40 - 130 unit/L 07/29/2024 3:[address] [facility] Bilirubin, Total 0.5 <=1.3 mg/dL 07/29/2024 3:[address] [facility] Est Glomerular Filtration Rate - Male 91 mL/min/1. 73 m?? 07/29/2024 3:11 PM EST [facility] Comment: This patient's estimated GFR [...] PM EST Vahe Marvin MD CHEMISTRY ORDERABLES [facility] [place] [address] * (ABNORMAL) Troponin - Single (07/29/2024 2:03 PM EST) Troponin-T, High Sensitivity >10,000(H ) <=22 ng/L 07/29/2024 2:52 PM EST [facility] Comment: This patient's troponin T [...] can be found in the [facility] Test Catalog Troponin - https://one-.testcatalog.org/catalogs/565/files/85242 Reference: Fourth [place] Definition of Myocardial Infarction. Journal of the [place] [employer] 2018;72:7218-8171 Blood VENOUS BLOOD SPECIMEN / Unknown Venipuncture / Unknown 07/29/2024 2:03 PM EST 07/29/2024 2:14 PM EST Vahe Marvin MD CHEMISTRY ORDERABLES [facility] [place] [address] * (ABNORMAL) Blood Gas, Venous POC (07/29/2024 2:01 PM EST) pH, Venous 7.30(L) 7.32 - 7.42 07/29/2024 2:[address] [facility] PCO2, Venous 42 38 - 58 mmHg 07/29/2024 2:[address] [facility] PO2, Venous 39 16 - 65 mmHg 07/29/2024 2:[address] [facility] Bicarbonate, Venous 20.1(L) 22 - 31 mmol/L 07/29/2024 2:[address] [facility] Base Excess, Venous -6.4(L) 1.9 - 4.5 mmol/L 07/29/2024 2:[address] [facility] Hemoglobin, Venous 14.2 13.7 - 16.5 g/dL 07/29/2024 2:[address] [facility] Oxyhemoglobin, Venous 69.3 % 07/29/2024 2:[address] [facility] Carboxyhemoglobin , Venous 0.8 % 07/29/2024 2:[address] [facility] Comment: Nonsmokers: 0.5-1.5% COHB ?? Smokers: Variable ??but usually less than 10% ?? Toxic: 20-30% COHB ?? Lethal: Greater than 60% COHB Methemoglobin, Venous 0.3 <=1.5 % 07/29/2024 2:02 PM EST [facility] Sodium, Venous 137 135 - 145 mmol/L 07/29/2024 2:[address] [facility] Potassium, Venous 3.6 3.5 - 5.0 mmol/L 07/29/2024 2:[address] [facility] Chloride, Venous 103 98 - 107 mmol/L 07/29/2024 2:02 PM EST [facility] Glucose, Venous 229(H) 65 - 199 mg/dL 07/29/2024 2:[address] [facility] Comment:Glucose Concentratio n >=200 mg/dL plus symptoms is consistent with Diabetes Mellitus. Lactate, Venous 3.1(H) 0.5 - 2.2 mmol/L 07/29/2024 2:[address] [facility] Ionized Calcium, Venous 1.11(L) 1.15 - 1.33 mmol/L 07/29/2024 2:[address] [facility] Blood VENOUS BLOOD SPECIMEN / Unknown 07/29/2024 2:01 PM EST 07/29/2024 2:02 PM EST Vahe Marvin MD POINT OF CARE TEST O RDERABLES Performing Organization Address City/State/[facility] Co de Phone Number [facility] [place] [address] * CARDIAC CATHETERIZATION (07/29/2024 1:20 PM EST) Anatomical Region Laterality Modality Other Narrative 07/29/2024 2:02 PM EST ?[facility] ? Cardiac Catheterization/Intervention Report ? Patient Name: Korey Montoya. ? Procedure Date: 07/29/2024 ? A #: [id number] ? Primary Physician: Shavonne, Vahe S ? Case #: [id number] ? File Name: [id number] ? Catheterization Order Number: [id number] ? [facility] ? Final Report [place], [place] ? Patient Name: ? Korey P. Montoya ?ID#: ?[id number] ? : ?1950 ? Procedure Date: ? July 29, 2024 ?Case #: ? [id number] ? Room: ? 5 ? Case Physician: ? Vahe Marvin M.D. ? Start: ?11:46 ? Admission: ??07/29/2024 ? Referring Physician: ??Chaparro Ferrera M.D. ?Discharge: ??08/04/2024 ? Procedures: ?* Coronary Angiography ?* Left [...] The ?patient's smoking status is Former. He has hypercholesterolemia managed ?with lipid therapy. The patient is also status post an acute ST elevation ?myocardial infarction. Prior to the initiation of this [...] was Emergent. The indication for ?the laborer high density press visit is ACS less than or equal [...] 3.5 guiding catheter and a 3.5 Fr [facility] [place] [address] ??20 Mhz using ?Manual pullback. ??Imaging [...] PCI for Acute ?STEMI. STEMI onset was 07/29/2024 at 7:00 AM, estimated. LVEF within one ?week was 20%. Cardiopulmonary support was initiated for cardiogenic shock ?- post PCI and Right Heart catheterization was initiated for ?Cardiomyopathy, unspecified (I42.9). ? Intervention Summary: ?Left Anterior Descending [...] ? A premounted 3.00 x 22 mm [place] Gillespie (LOW) was deployed ? with a maximum [...] ??A premounted 3.00 x 08 mm Jeison Gillespie (LOW) ? was deployed with a maximum [...] administered prior to arrival in the laborer high density press. ?Recommended anti-platelet/anti-thrombotic regimen: ?Start aspirin 81 mg daily now and continue for 12 months then stop. ?Start clopidogrel 75 mg daily now and continue for indefinitely. ?These recommendations are made at the time of the intervention. Patient ?and provider preferences or a changing clinical situation may require ?modification of this regimen. Consult [facility] Interventional Cardiology for ?questions. [...] able ?to start weaning his inotropes/vasopressors. A Luck Colette catheter was ?placed demonstrating improvement in [...] ventricular assist device insertion, right heart ?catheterization, Luck (flow directed cath) insertion, access site ?angiography, vascular ultrasound, venous line / sheath insert and vascular ?closure device. ? Vahe Marvin M.D. ? Electronically Signed by: Vahe Marvin M.D. ? Report Finalized: 07/29/2024 ??13:55 ? Report Last Ammended: 09/20/2024 ??15:21 ? Procedure Note Vahe Marvin MD - 09/20/2024 [facility] Cardiac Catheterization/Intervention Report Patient Name: Korey MontoyaToby Procedure Date: 07/29/2024 A #: [id number] Primary Physician: Vahe Marvin Case #: [id number] File Name: [id number] Catheterization Order Number: [id number] [facility] FinalReport [place], [place] Patient Name: Korey Montoya ID#:[id number] :1950 Procedure Date: July 29, 2024 Case #: [id number] Room: 5 Case Physician: Vahe Marvin M.D. Start: 11:46 Admission:07/29/2024 Referring Physician: Chaparro Ferrera M.D. Discharge:08/04/2024 Procedures: * Coronary Angiography * Left Heart [...] The patient's smoking status is Former. He has hypercholesterolemiamanaged with lipid therapy. The patient is also status post an acute STelevation myocardial infarction. Prior to the initiation of this procedure,the patient was designated as ASA Class IV. The [facility] clinical frailtyscale is 4: Vulnerable. Diagnostic Tests: Electrocardiography: EKG was assessed by ECG. EKG was Abnormal. EKG showed STDeviation >= 0.5 mm. Medications Prior to Procedure: Angiotensin II Receptor Elvis and Statin. Indications for Diagnostic Cath: The priority of the diagnostic procedure was Emergent. Theindication for the laborer high density press visit is ACS less than or equal [...] 3.5 guiding catheter and a 3.[address] [facility] [address] [address] 20 Mhzusing Manual pullback. Imaging was [...] PCI for Acute STEMI. STEMI onset was 07/29/2024 at 7:00 AM, estimated. LVEF withinone week was 20%. Cardiopulmonary support was initiated for cardiogenicshock - post PCI and Right Heart catheterization [...] The lesion was predilated with a 2.00mm XABBACK45 MM balloon with a maximum inflation pressure of 12atmospheres. A premounted 3.00 x 22 mm Jeison Gillespie (LOW) wasdeployed with a maximum inflation pressure [...] atmospheres. A premounted 3.00 x 08 mm [place] Gillespie(LOW) was deployed with a maximum inflation pressure [...] administered prior to arrival in the laborer high density press. Recommended anti-platelet/anti-thrombotic regimen: Start aspirin 81 mg daily now and continue for 12 months then stop. Start clopidogrel 75 mg daily now and continue for indefinitely. These recommendations are made at the time of the intervention.Patient and provider preferences or a changing clinical situation mayrequire modification of this regimen. Consult [facility] [place] Interventional Cardiologyfor questions. The [...] wereable to start weaning his inotropes/vasopressors. A Luck Colette catheterwas placed demonstrating improvement in his [...] ventricular assist device insertion, right heart catheterization, Luck (flow directed cath) insertion, access site angiography, vascular ultrasound, venous line / sheath insert andvascular closure device. Vahe Marvin M.D. Electronically Signed by: Vahe Marvin M.D. Report Finalized: 07/29/2024 13:55 Report Last Ammended: 09/20/2024 15:21 Vahe Marvin MD CARDIAC CATH ORDERAB LES * (ABNORMAL) BLOOD GAS, POC (07/29/2024 12:46 PM EST) Sodium, POC 139 135 - 145 mmol/L 07/30/2024 7:[address] [facility] Potassium, POC 3.4(L) 3.5 - 5.0 mmol/L 07/30/2024 7:[address] [facility] pH, POC 7.33(L) 7.35 - 7.45 07/30/2024 7:[address] [facility] Ionized Calcium, POC 1.13(L) 1.15 - 1.33 mmol/L 07/30/2024 7:[address] [facility] pCO2, POC 38 35 - 45 mmHg 07/30/2024 7:[address] [facility] pO2, POC 94 85 - 104 mmHg 07/30/2024 7:[address] [facility] Base Excess, POC -6.0(L) -3.0 - 3.0 mmol/L 07/30/2024 7:[address] [facility] Hematocrit, POC 39.0(L) 40.5 - 48.5 %PCV 07/30/2024 7:[address] [facility] Hemoglobin, POC 13.3(L) 13.7 - 16.5 g/dL 07/30/2024 7:[address] [facility] Comment:The calculation of h emoglobin from hematocrit assumes a normal MCHC. Bicarbonate, POC 19.8(L) 20.0 - 26.0 mmol/L 07/30/2024 7:[address] [facility] Carbon Dioxide, POC 21(L) 22 - 31 mmol/L 07/30/2024 7:[address] [facility] Blood VENOUS BLOOD SPECIMEN / Unknown 07/29/2024 12:46 PM EST 07/30/2024 7:30 AM EST Vahe Marvin MD POINT OF CARE TEST O RDERABLES [facility] [place] [address] * (ABNORMAL) BLOOD GAS, POC (07/29/2024 12:12 PM EST) Sodium, POC 135 135 - 145 mmol/L 07/30/2024 7:[address] [facility] Potassium, POC 3.8 3.5 - 5.0 mmol/L 07/30/2024 7:[address] [facility] pH, POC 7.27(LLL) 7.35 - 7.45 07/30/2024 7:[address] [facility] Ionized Calcium, POC 1.14(L) 1.15 - 1.33 mmol/L 07/30/2024 7:[address] [facility] pCO2, POC 43 35 - 45 mmHg 07/30/2024 7:[address] [facility] pO2, POC 131(H) 85 - 104 mmHg 07/30/2024 7:[address] [facility] Base Excess, POC -7.0(L) -3.0 - 3.0 mmol/L 07/30/2024 7:[address] [facility] Hematocrit, POC 36.0(L) 40.5 - 48.5 %PCV 07/30/2024 7:[address] [facility] Hemoglobin, POC 12.2(L) 13.7 - 16.5 g/dL 07/30/2024 7:[address] [facility] Comment:The calculation of h emoglobin from hematocrit assumes a normal MCHC. Bicarbonate, POC 19.7(L) 20.0 - 26.0 mmol/L 07/30/2024 7:[address] [facility] Carbon Dioxide, POC 21(L) 22 - 31 mmol/L 07/30/2024 7:30 AM EST [facility] Blood VENOUS BLOOD SPECIMEN / Unknown 07/29/2024 12:12 PM EST 07/30/2024 7:30 AM EST Vahe Marvin MD POINT OF CARE TEST O RDERABLES [facility] [place] [address] documented in this encounter Visit Diagnoses Diagnosis [...] at 1452, Until Tue07/29/24 at 1533, [place]: haylie overrjuan pablo aspirin EC tablet 81 mg 81 mg, [...] based off of anti-Xa levels per the [facility] Anti-Xa Algorithm and inform [...] TIMES DAILY BEFORE MEALS, First dose on Tue07/29/24 at 1630, Until Discontinued, CORRECTION BOLUS [1-4 [...] Administer over 24 Hours, CONTINUOUS, Starting on Tue07/29/24 at 1530, Until Tue07/30/24 at 0909, For Cardiac indication., Routine Rate/Dose Verify 07/30/2024 8:00 AM EST 2 mg/min 30 mL/hr Rate/Dose Verify 07/30/2024 6:00 AM EST 2 mg/min 30 mL/h r Rate/Dose Verify 07/30/2024 4:00 AM EST 2 mg/min 30 mL/h r lidocaine (pf) 4 mg/mL (0.4 %) infusion 1 dose, Starting on Tue07/29/24 at 1510, Until Tue07/30/24 at 0909, Silvia [...] 3 mg, Oral, NIGHTLY, First dose on 07/29/24 at 2100, Until Discontinued, Routine Given 07/30/2024 [...] PM EST 20 mEq 100 mL/ hr Bag 07/30/2024 9:17 PM EST 20 mEq [...] 120 Minutes 0847 (New Bag - Provider: Parvni Strauss RN)1047 (Stopped - Provider: Parvin Strauss RN) melatonin tablet 6 mg 6 mg, Oral, NIGHTLY, First dose on Tue07/31/24 at 0030, Until Discontinued, Routine 2024 (Given - Provider: Edouard Wisdom RN) 2202 (Given - Provider: France Guerrero RN [...] on Tue08/02/24 at 1330, Until Discontinued, Routine 1352 (Given - Provider: Parvin Strauss RN)2024 (Given - Provider: Edouard Wisdom RN) spironolactone (Aldactone) tablet 12.5 mg 12.5 mg, Oral, DAILY, First dose on Tue08/03/24 at 0900, Until Discontinued, DO NOT SPLIT, CRUSH OR OPEN, Routine 0845 (Given - Provider: Tonya Watsno RN) 0934 (Given - Provider: Tonya Watson RN) tamsulosin (Flomax) capsule 0.4 mg 0.4 mg, Oral, DAILY, First dose on Tue08/01/24 at 1300, Until Discontinued, DO NOT CRUSH OR CHEW, Routine 0847 (Given - Provider: Parvin Strauss, RN) 0845 (Given - Provider: Tonya Watson, [...] Routine documented in this encounter Care Teams Weather Observer Relationship Specialty Start Date End Date Alexia Mtz, RAW MATERIAL HANDLER [address] [place] [address] PCP - General Family Medicine 07/30/24 documented as of this encounter
--- OUTSIDE RECORDS SUMMARY | 2024-09-21 11:30 | XMS_ITS | Encounter Summary ---
Author Organization [facility] [place] [address] Care Team Providers Care Material Inspector Name Role Phone Yoel Artis Ute ALCALA Primary Care Provider [phone] Encounter Details Date Type Department Care Team (Late st Contact Info) Description 07/29/2024 Interpretation Only [facility] [address] [place] [id number] Chaparro Montana MD [address] [place] [address] Social History Tobacco Use Types Packs/Day Years Used Date Smoking Tobacco: Former Cigarettes Smokeless Tobacco: Never Alcohol Use Standard Drinks/Week Comments Not Currently 0 (1 standard drink = 0.6 oz pur e alcohol) [facility] Utilities Answer Date Recorded In the past 12 months has [employer], gas, oil, or water auctionPAL threatened to shut off services in your [...] any time in the past 12 m [facility], were you homeless or living in [...] AM EST Office Visit Cardiology at [address] [phone] Mushtaq Murphy APRN documented as of this encounter Procedures Procedure Name Priority Date/Time Associated Diagnosis Comments XR CHEST ONE VIEW STAT 07/29/2024 10: 50 AM EST documented in this encounter Results * XR Chest One View (07/29/2024 10:50 AM EST) PT CLASS E RAD ADMITDTTM [id number] RAD PT RAD MD INFO [id number]^Albertiss henry^Chaparro RAD EXAM DESC XCXR1^XR Chest 1 [...] questions please contact the health direct care worker that requested your imaging first. ? Electronically signed by: Darvin Noyola [facility] ([phone]), at 07/29/2024 11:07 AM Narrative 07/29/2024 11:07 [...] have questions please contactthe health direct care worker that requested your imaging first. Electronically signed by: Darvin Noyola [facility]([phone]), at 07/29/2024 11:07 AM Chaparro Montana MD IMG DX ORDERABLES documented in this encounter Visit Diagnoses Not on filedocumented in this encounter Care Teams Material Inspector Relationship Specialty Start Date End Date Yoel Artis APRN [address] [place] [id number] PCP - General Internal Medicine 11/18/22 07/29/24 documented as of this encounter
--- OUTSIDE RECORDS SUMMARY | 2024-09-21 11:30 | XMS_ITS | Encounter Summary ---
[place] [address] Care Team Providers Care Spa Director/Finance Name Role Phone Yoel Artis Ute ALCALA Primary Care Provider [phone] Reason for Visit * Auth/Cert (Routine) Specialty Diagnoses / Procedures Referred By Theodore t Referred To Contact Diagnoses STEMI (ST elevation myocardial infarction) STEMI Procedures ER IPI Vahe Marvin MD [facility] [place] [address] [facility] Referral ID Status Reason Start Date Expiration Date Visits Re quested Visits Authorized [id number] 1 1 Encounter Details Date Type Department Care Team (Late st Contact Info) Description 07/29/2024 12:00 PM EST - 07/29/2024 12:54 PM EST [employer] [place] [address] Vahe Marvin MD [facility] [place] [address] CARDIAC CATHETERIZATION Social History Tobacco Use Types Packs/Day Years Used Date Smoking Tobacco: Former Cigarettes Smokeless Tobacco: Never Alcohol Use Standard Drinks/Week Comments Not Currently 0 (1 standard drink = 0.6 oz pur e alcohol) [facility] Utilities Answer Date Recorded In the [...] any time in the past 12 m [facility], were you homeless or living in a [...] Korey Montoya Patient Age: 74 y.o. Language: Bahraini Race: White Ethnicity: Not nor Admit date: [...] please contact your inpatient physician through the [facility] Brick Kiln Worker . Issues afterhours and on weekends will [...] EKG. Patient transferred via air ambulance to [facility] on 07/29 for LHC [...] EKG. Was transferred via air ambulance to [facility] for further management and [...] the next year. Access was via right WAGON DRILL OPERATOR and this sitewas clean, dry and [...] for Chest pain. Replaces: nitroGLYcerin 400 mcg/spray [place], Non-Aerosol 0.4 mg Quantity: 90 tablet Refills: [...] Refills: 0 STOPPED Medications nitroGLYcerin 400 mcg/spray [place], Non-Aerosol Commonly known as: NITROLINGUAL Replaced by: [...] of one year. After this time, your receiving teller will determine if you need to continue [...] away. Stay on the phone. The emergency pumping plant operator will tell you what to do. [...] appointments: During 8am-5pm Tuesday through Tuesday call [phone] to speak with a nurse in the cardiology clinic All other times call [phone] and ask to speak to the director of special education ribbon cutter. Follow up Appointments: PCP Alexia Mtz, [employer] MAINFRAME SYSTEMS PROGRAMMER [phone]. Please call to establish a follow up appointment within 1-2 weeks of discharge. Cardiology. Referral to heart failure has been sent. General Instructions None Future Appointments and Orders Future Orders Complete By Expires Referral to Cardiac Rehab [[id number] Custom] As directed Process Instructions: If no progress note charted, please enter Clinical details in comments. Scheduling Instructions: Questions: My question or request is: STEMI, PCI- cardiac rehab at [facility] Referral to Cardiology [REF12 Custom] [...] of one year. After this time, your receiving teller will determine if you need to continue [...] away. Stay on the phone. The emergency pumping plant operator will tell you what to do. [...] appointments: During 8am-5pm Tuesday through Tuesday call [phone] to speak with a nurse in the cardiology clinic All other times call [phone] and ask to speak to the director of special education ribbon cutter. Follow up Appointments: PCP Alexia Mtz, [employer] MAINFRAME SYSTEMS PROGRAMMER [phone]. Please call to establish a follow up [...] EKG. Patient transferred via air ambulance to [facility] on 07/29 for LHC and LOW to LAD for 100% occlusion Social History: Pt lives with his in a 1 level home with 2 NAOMI. 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 [...] Total time: 35 (tef) minutes Time IN/OUT: 1124-0567 ZAIDA DUBOSE PT Pager: [phone] Physical Therapy Inpatient Rehabilitation Department * Yrn Velazquez MD - 08/03/2024 10:38 AM EST CV HOSPITALIST 2 - [facility] DAILY PROGRESS NOTE Page [phone] to reach a provider 04/04 Admit Date: [...] Compared to the overnight study by the ribbon cutter fellow the impella position is stable. The [...] the telemetry from the last 24 hours. [facility] Assessment: ASSESSMENT: Korey Montoya is a 74 y.o. male w/ PMH of hypertension, HLD, and BPH who presents for chief concern of chest pain after being found to have ST elevations on EKG. Patient transferred via air ambulance to [facility] on 07/29 for LHC [...] be determined OT: PCP Alexia Mtz, FREDRICK [phone] * Zaida Dubose, PT - 08/02/2024 2:08 PM EST Physical Therapy Evaluation Patient profile: Korey Montoya is a 74 y.o. male w/ PMH of hypertension, HLD, and BPH who presents for chief concern of chest pain after being found to have ST elevations on EKG. Patient transferred via air ambulance to [facility] on 07/29 for LHC and LOW to LAD for 100% occlusion Social History: Pt lives with his in a 1 level home with 2 NAOMI. 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 [...] Total time: 37 (eval) minutes Time IN/OUT: 0833-6166 ZAIDA DUBOSE PT Pager: [phone] Physical Therapy Inpatient Rehabilitation Department * Gagan [...] EKG. Patient transferred via air ambulance to [facility] on 07/29 for LHC and LOW to LAD for 100% occlusion. TTE showed apical akinesis and inferior hypokinesis with EF 20%. RHC showed elevated filling pressures. Impella placed and P-level 6 at time of transfer to [facility]. CI initially 1.97, improved to [...] PCP: Alexia Mtz APRN PCP phone number: [phone] Date of Admission: 07/29/2024 ( Hospital Day 4 days ) Attending:Bridgette Stauffer MD ID: Korey Montoya is a 74 y.o. male w/ PMH of hypertension, HLD, and BPH on Hospital Day4 for chief concern of chest pain after being found to have ST elevations on EKG. Patient transferred via air ambulance to [facility] on 07/29 for LHC [...] 07/29/24 1621 PHART 7.48* 7.44 7.38 7.37 DAT8DWL 29* 29* 34* 36 PO2ART 71* 109* 141* 71* HGR5EBJ 20.6 19.4* 19.5* 20.4 VBG (Venous Blood Gas) Recent Labs 07/29/24 1401 PHVEN 7.30* PO2VEN 39 UOI8WVN 20.1* Mixed Venous Sat No results for input(s): Z2BKKF7 in the last 168 hours. Objective: Vitals [...] 07/29/24 1621 PHART 7.48* 7.44 7.38 7.37 GYH5AQY 29* 29* 34* 36 PO2ART 71* 109* 141* 71* DLP5UBP 20.6 19.4* 19.5* 20.4 VBG (Venous Blood Gas) Recent Labs 07/29/24 1401 PHVEN 7.30* PO2VEN 39 VMW7DEE 20.1* Mixed Venous Sat No results for input(s): G8UANM0 in the last 168 hours. Microbiology: Microbiology Results (Last 30 days) Procedure Component Value Units Date/Time Blood culture [[id number]] Collected: 07/29/24 160 Lab Status: Preliminary result Specimen: Blood, Venous Updated: 08/01/24 170 Blood Culture No growth at 72 hours Blood culture [[id number]] Collected: 07/29/241607 Lab Status: Preliminary result Specimen: Blood, Venous Updated: 08/01/241700 Blood Culture No growth at 72 hours Imaging: Results for orders placed or performed during the hospital encounter of 07/29/24 XR Chest One View (Exam End: 07/29/2024 2:30 PM) Result Value WORKSTATION ID [id number] Impression 1. No pulmonary edema. 2. No pleural effusion. 3. No pneumothorax. Thank you for letting us participate in the care of this patient. If you are a health care provider and have any questions regarding this report, please contact the number below. For patients who have questions please contact the health health care consultant that requested your imaging first. Electronically signed by: Chris Candelaria MD, [facility] ([phone]), at 07/29/2024 3:21 PM TTE ( 07/30/24) [...] Compared to the overnight study by the ribbon cutter fellow the impella position is stable. The [...] EKG. Patient transferred via air ambulance to [facility] on 07/29 for LHC [...] Resuscitation - Inpatient Dispo: Pending clinical course Susnanah Ornelas MD Internal Medicine, PGY-1 Cardiology, [facility] 08/02/24 12:45 PM CARDIOLOGY STAFF [...] today). Transfer to floor. Krystal Parker MD, [facility] Staff Clinical Administrator wire preparation machine tender * Gagan Catherine MD - 08/01/2024 11:12 [...] EKG. Patient transferred via air ambulance to [facility] on 07/29 for LHC [...] support, which was weaned upon arrival to [facility] to norepinephrine 20and levo 0.04 [...] PCP: Alexia Mtz APRN PCP phone number: [phone] Date of Admission: 07/29/2024 ( Hospital Day 3 days ) Attending:Krystal Parker MD ID: Korey Montoya is a 74 y.o. male w/ PMH of hypertension, HLD, and BPH on Hospital Day3 for chief concern of chest pain after being found to have ST elevations on EKG. Patient transferred via air ambulance to [facility] on 07/29 for LHC [...] 07/29/24 1621 PHART 7.48* 7.44 7.38 7.37 PZO8GLO 29* 29* 34* 36 PO2ART 71* 109* 141* 71* VQW8MKM 20.6 19.4* 19.5* 20.4 VBG (Venous Blood Gas) Recent Labs 07/29/24 1401 PHVEN 7.30* PO2VEN 39 YKR4THY 20.1* Mixed Venous Sat No results for input(s): Z1EKQE8 in the last 168 hours. PA Catheter [...] 07/29/24 1621 PHART 7.48* 7.44 7.38 7.37 TBE9DBH 29* 29* 34* 36 PO2ART 71* 109* 141* 71* ZEI5BGO 20.6 19.4* 19.5* 20.4 VBG (Venous Blood Gas) Recent Labs 07/29/24 1401 PHVEN 7.30* PO2VEN 39 WXL7ARO 20.1* Mixed Venous Sat No results for input(s): C3CCVH3 in the last 168 hours. Microbiology: Microbiology Results (Last 30 days) Procedure Component Value Units Date/Time Blood culture [[id number]] Collected: 07/29/241607 Lab Status: Preliminary result Specimen: Blood, Venous Updated: 07/31/241700 Blood Culture No growth at 48 hours Blood culture [[id number]] Collected: 07/29/241607 Lab Status: Preliminary result Specimen: Blood, Venous Updated: 07/31/241700 Blood Culture No growth at 48 hours Imaging: Results for orders placed or performed during the hospital encounter of 07/29/24 XR Chest One View (Exam End: 07/29/2024 2:30 PM) Result Value WORKSTATION ID [id number] Impression 1. No pulmonary edema. 2. No pleural effusion. 3. No pneumothorax. Thank you for letting us participate in the care of this patient. If you are a health care provider and have any questions regarding this report, please contact the number below. For patients who have questions please contact the health health care consultant that requested your imaging first. Electronically signed by: Chris Candelaria MD, [facility] ([phone]), at 07/29/2024 3:21 PM TTE ( 07/30/24) [...] Compared to the overnight study by the ribbon cutter fellow the impella position is stable. The [...] EKG. Patient transferred via air ambulance to [facility] on 07/29 for LHC [...] with him; questions answered. Krystal Parker MD, [facility] Staff Clinical Administrator wire preparation machine tender * Krystal Parker MD - 07/31/2024 1:06 [...] EKG. Patient transferred via air ambulance to [facility] on 07/29 for LHC and LOW to LAD for 100% occlusion. TTE showed apical akinesis and inferior hypokinesis with EF 20%. RHC showed elevated filling pressures. Impella placed and P-level 6 at time of transfer to [facility]. CI initially 1.97, improved to 2.2 After impella. Received about 3 L of fluid during procedural course. Patient initially required norepinephrine 30, epinephrine 10, and vasopressin 0.04 for hemodynamic support, which was weaned upon arrival to [facility] to norepinephrine 20and levo 0.04 [...] PCP: Alexia Mtz APRN PCP phone number: [phone] Date of Admission: 07/29/2024 ( Hospital Day 2 days ) Attending:Krystal Parker MD ID: Korey Montoya is a 74 y.o. male w/ PMH of hypertension, HLD, and BPH on Hospital Day2 for chief concern of chest pain after being found to have ST elevations on EKG. Patient transferred via air ambulance to [facility] on 07/29 for LHC [...] 0057 07/29/24 1621 PHART 7.44 7.38 7.37 MUE2HSK 29* 34* 36 PO2ART 109* 141* 71* CGR7CHZ 19.4* 19.5* 20.4 VBG (Venous Blood Gas) Recent Labs 07/29/24 1401 PHVEN 7.30* PO2VEN 39 EFE6AEY 20.1* Mixed Venous Sat No results for input(s): N4BNNF5 in the last 168 hours. PA Catheter [...] 0057 07/29/24 1621 PHART 7.44 7.38 7.37 POS2SOV 29* 34* 36 PO2ART 109* 141* 71* EHG9RWB 19.4* 19.5* 20.4 VBG (Venous Blood Gas) Recent Labs 07/29/24 1401 PHVEN 7.30* PO2VEN 39 HRC8TUJ 20.1* Mixed Venous Sat No results for input(s): M5WSLG0 in the last 168 hours. Microbiology: Microbiology Results (Last 30 days) Procedure Component Value Units Date/Time Blood culture [[id number]] Collected: 07/29/241607 Lab Status: Preliminary result Specimen: Blood, Venous Updated: 07/30/24 170 Blood Culture No Growth at 18-24 hrs. Blood culture [[id number]] Collected: 07/29/241607 Lab Status: Preliminary result Specimen: Blood, Venous Updated: 07/30/241700 Blood Culture No Growth at 18-24 hrs. Imaging: Results for orders placed or performed during the hospital encounter of 07/29/24 XR Chest One View (Exam End: 07/29/2024 2:30 PM) Result Value WORKSTATION ID [id number] Impression 1. No pulmonary edema. 2. No pleural effusion. 3. No pneumothorax. Thank you for letting us participate in the care of this patient. If you are a health care provider and have any questions regarding this report, please contact the number below. For patients who have questions please contact the health health care consultant that requested your imaging first. Electronically signed by: Chris Candelaria MD, [facility] ([phone]), at 07/29/2024 3:21 PM TTE ( 07/30/24) [...] Compared to the overnight study by the ribbon cutter fellow the impella position is stable. The [...] EKG. Patient transferred via air ambulance to [facility] on 07/29 for LHC [...] work to optimize volume status while continuing akwxecd-ngcegj-xipbkcralg therapies at this time. Obtain comprehensive TTE. [...] EKG. Patient transferred via air ambulance to [facility] on 07/29 for LHC and LOW to LAD for 100% occlusion. TTE showed apical akinesis and inferior hypokinesis with EF 20%. RHC showed elevated filling pressures. Impella placed and P-level 6 at time of transfer to [facility]. CI initially 1.97, improved to 2.2 After impella. Received about 3 L of fluid during procedural course. Patient initially required norepinephrine 30, epinephrine 10, and vasopressin 0.04 for hemodynamic support, which was weaned upon arrival to [facility] to norepinephrine 20and levo 0.04 [...] PCP: Yoel Artis APRN PCP phone number: [phone] Date of Admission: 07/29/2024 ( Hospital Day 1 day ) Attending:Aubree Silverio MD ID: Korey Montoya is a 74 y.o. male w/ PMH of hypertension, HLD, and BPH on Hospital Day1 for chief concern of chest pain after being found to have ST elevations on EKG. Patient transferred via air ambulance to [facility] on 07/29 for LHC [...] 0057 07/29/24 1621 PHART 7.44 7.38 7.37 GSG4LVL 29* 34* 36 PO2ART 109* 141* 71* YNX1ZZA 19.4* 19.5* 20.4 VBG (Venous Blood Gas) Recent Labs 07/29/24 1401 PHVEN 7.30* PO2VEN 39 KEO7EVQ 20.1* Lactate ( Last 12 hours) 1.3 >> 1.2 Mixed Venous Sat No results for input(s): H5WMLI7 in the last 168 hours. PA Catheter [...] 0057 07/29/24 1621 PHART 7.44 7.38 7.37 INP9LPN 29* 34* 36 PO2ART 109* 141* 71* KDU0GUO 19.4* 19.5* 20.4 VBG (Venous Blood Gas) Recent Labs 07/29/24 1401 PHVEN 7.30* PO2VEN 39 YIG9JPA 20.1* Mixed Venous Sat No results for input(s): T1ULKE7 in the last 168 hours. Microbiology: Microbiology Results (Last 30 days) Procedure Component Value Units Date/Time Blood culture [[id number]] Collected: 07/29/24 1608 Lab Status: In process Specimen: Blood, Venous Updated: 07/29/24 1626 Blood culture [[id number]] Collected: 07/29/24 1608 Lab Status: In process Specimen: Blood, Venous Updated: 07/29/24 1615 Imaging: Results for orders placed or performed during the hospital encounter of 07/29/24 XR Chest One View (Exam End: 07/29/2024 2:30 PM) Result Value WORKSTATION ID [id number] Impression 1. No pulmonary edema. 2. No pleural effusion. 3. No pneumothorax. Thank you for letting us participate in the care of this patient. If you are a health care provider and have any questions regarding this report, please contact the number below. For patients who have questions please contact the health health care consultant that requested your imaging first. Medications Scheduled [...] EKG. Patient transferred via air ambulance to [facility] on 07/29 for LHC [...] EKG. Patient transferred via air ambulance to [facility] on 07/29 for LHC [...] EKG. Was transferred via air ambulance to [facility] for further management and C demo nstrated 100% occlusion. No significant RCA, LMCA, or LCX disease. LOW placed in LAD with some residual distal disease meriting placement of overlapping distal stent. TTE showed apical akinesis and inferior hypokinesis with EF 20%. RHC showed elevated filling pressures. Impella placed and P-level 6 at time of transfer to [facility]. CI initially 1.97, improved to 2.2 After impella. Received about 3 L of fluid during procedural course. Patient initially required norepinephrine, epinephrine, and vasopressin for hemodynamic support, which was weaned upon arrival to [facility] to norepinephrine 20 and levo [...] (WRVU 4.57) performed by Brandan Mcgovern MD [facility] ENDOSCOPY Significant Family History: Family [...] mouth. Past Week nitroGLYcerin (NITROLINGUAL) 400 mcg/spray [place], Non-Aerosol 1 spray to anus for proctalgia [...] 3.5 guiding catheter and a 3.5 Fr [place] [facility] [place] ST 20 Mhz using Manual pullback. Imaging [...] priority for the procedure was Emergent. The [facility] indication for the procedure was STEMI-Immediate [...] A premounted 3.00 x 22 mm [place] (LOW) was deployed with a maximum inflation [...] A premounted 3.00 x 08 mm [place] (LOW) was deployed with a maximum inflation [...] a limited study performed by a fellow ribbon cutter to evaluate for cardiogenic shock with impella [...] Compared to the overnight study by the ribbon cutter fellow the impella position is stable. The [...] EKG. Patient transferred via air ambulance to [facility] on 07/29 for LHC [...] PCP: Yoel Artis APRN PCP phone number: [phone] Date of Admission: 07/29/2024 ( Hospital Day 0 days ) Attending:Aubree Silverio MD ID: Korey Montoya is a 74 y.o. male w/ PMH of hypertension, HLD, and BPH who presents for chief concern of chest pain after being found to have ST elevations on EKG. Patient transferred via air ambulance to [facility] on 07/29 for LHC and LOW to LAD for 100% occlusion. HPI: Korey Montoya is a 74 y.o. male w/ PMH of hypertension, HLD, and BPH who presents for chief concern of chest pain after being found to have ST elevations on EKG. Patient transferred via air ambulance to [facility] on 07/29 for LHC [...] EKG. Was transferred via air ambulance to [facility] for further management and [...] (WRVU 4.57) performed by Brandan Mcgovern MD [facility] ENDOSCOPY Family History Family History [...] Blood Gas) No results for input(s): PHART, NRT1SON, PO2ART, XXI1ITP, LACTATEVEN, HPU5HKJ, PFRATIOART2 in the last 168 hours. VBG (Venous Blood Gas) Recent Labs 07/29/24 1401 PHVEN 7.30* PO2VEN 39 OQH6DED 20.1* Mixed Venous Sat No results for input(s): H9WSDW5 in the last 168 hours. PA Catheter [...] Blood Gas) No results for input(s): PHART, WIR7JUG, PO2ART, CGZ5VEE, LACTATEVEN, ELN3ZXG, PFRATIOART2 in the last 168 hours. VBG (Venous Blood Gas) Recent Labs 07/29/24 1401 PHVEN 7.30* PO2VEN 39 VVK1XWV 20.1* Mixed Venous Sat No results for input(s): N0UMHD2 in the last 168 hours. Microbiology: Microbiology [...] Sulfate, lidocaine (pf) Assessment & Plan: Korey Montoay is a 74 y.o. male w/ PMH of hypertension, HLD, and BPH who presents for chief concern of chest pain after being found to have ST elevations on EKG. Patient transferred via air ambulance to [facility] on 07/29 for LHC. Found to have 100% occlusion of LAD for which he underwent LOW to LAD.Otherwise no other significant vessel disease. Fahad is currently hemodynamically tenuous but improving upon admission to [facility], requiring hemodynamic support with norepinephrine and vasopressin at time of admission along with mechanical support with Impella device. Reassuringly, he demonstrates decreasing pressor requirements since admission to [facility], with epinephrine completely weaned. He [...] Bernardo Amos MD Internal Medicine, PGY-3 Cardiology, [facility] 07/29/24 3:14 PM Cardiology Attending [...] MD, FACP, FACC Section of Cardiovascular Medicine [facility] Chief Technical Officervirtualization architect [employer] [employer] [employer] [facility] This patient meets or has [...] to the planned procedure. Hand Hygiene: The furniture dipper did perform hand hygiene prior to arterial [...] ease. Good wave form. Ivan Hernandez MD Regional Business Development Manager Associated attestation - Rolando Yeh MD [...] in an outpatient cardiac rehabilitation program at [facility] was discussed. Patient agrees to [...] MEDICARE Payor: [employer] MANAGED MEDICARE / Plan: [facility] [facility] COMPLETE / Product [...] Date of Discharge: 08/04/2024 Gaby Wong RN, Pager-[phone] * Initial Assessments - Char Meza OT - 08/03/2024 10:00 AM EST Occupational Therapy Evaluation Patient profile: Korey Montoya is a 74 y.o. male admitted on 07/29/2024 w/ PMH of hypertension, HLD, and BPH who presents for chief concern of chest pain after being found to have ST elevations onEKG. Patient transferred via air ambulance to [facility] on 07/29 for LHC and LOW to LAD for 100% occlusion. Past Medical History: Diagnosis Date ADHD HLD (hyperlipidemia) HTN (hypertension) Tremor Past Surgical History: Procedure Laterality Date HAND SURGERY PRO COLONOSCOPY, REMV LESN, SNARE N/A 08/30/2023 COLONOSCOPY, POLYPECTOMY, REMOVAL LESION BY SNARE (WRVU 4.57) performed by Brandan Mcgovern MD [facility] ENDOSCOPY Social History: Patient lives with his . Home Setup: 2 NAOMI to a 1 level home. DME: none Baseline ADL/Mobility: Independent with ADLs and IADLs. Enjoys walking. able assist as needed. Precautions/Special Considerations: Full code. Risk for falls. Subjective: I have access to an [employer] gym. (Educated to wait for MD [...] evaluation only Total Minutes, Occupational Therapy: 14 (1631-4184 (evaluation)) 2017 OT Evaluation Code Rationale: Diagnosis [...] and measurable assessment of functional outcome. Pager: [phone] Char Meza OT 08/03/2024 Occupational Therapy Rehabilitation [...] (Interventions Implemented as Appropriate) Flowsheets (Taken 08/01/2024 1647) Outcome Summary: A+O, no pain. NSR. MAP > 65, no intervention. Dobutamine and amiodarone gtts off, CI > 2 via TD and Thomas. PA cath, intro, arterial line removed. RA. Tolerating diet. Perez removed, voiding appropriately in urinal. 20mg Lasix given with good effect. Plan of Care Reviewed With: patient Progress: improving * Brief Op Note - Maldondao Luis MD - 07/31/2024 5:35 PM EST Preliminary Cardiac Catheterization Procedure Note: Patient Name: Korey Montoya : [id number] MR#: [id number] Case Date: 07/31/2024 Brick Kiln Worker: Surgeons and Role: * Maldonado Luis MD - Primary * Quinten Charles PA - Physician Paper Folder Preoperative diagnosis: shock, impella Postoperative diagnosis: * same * Procedure(s) performed: Impella removal form right WAGON DRILL OPERATOR Access: Right WAGON DRILL OPERATOR A time-out was conducted prior to [...] surrogate would be surrogate decision maker per [place] decision making law. (Only good for 180 days) Any patient receiving care in [place] must abide by [place] law. The hierarchy for surrogate decision making [...] The agent with financial power of insurance defense attorney or a conservator appointed in accordance [...] it) Home Address confirmed as: Mailing Address: [address] [address] Physical Address: [address] [place] [address] Social & Family Supports: All names listed [...] points: Addiction likely Health/Prescription Coverage: Primary Insurance: [facility] MANAGED MEDICARE Payor: [facility] MANAGED MEDICARE / Plan: [employer] MANAGED MEDICARE COMPLETE / Product Type: *No Product type* / Secondary Insurance: N/A ; Prescription Coverage: Yes Preferred Pharmacy: [address] - [address] [address] Counselor Status: Patient is a : No Primary Care Provider confirmed: Alexia Mtz, [employer] MAINFRAME SYSTEMS PROGRAMMER [phone] Patient/Caregiver Goals of Treatment: return home Potential [...] 07/29/2024 6:25 PM EST Pt arrived from [facility] @ 1400. CXR and EKG completed. Impella [...] Procedure Note: Patient Name: Korey Montoya : [id number] MR#: [id number] Case Date: 07/29/2024 [employer]rick Kiln Worker: Surgeons and Role: * Vahe Marvin MD - Primary * Susannah Watts PA - Physician Paper Folder Preoperative diagnosis: STEMI Postoperative diagnosis: * STEMI, LAD Artery * * Cardiogenic Shock * Procedure(s) performed: [facility] Coronary angiogram Stent insertion coronary IVUS coronary Venous line insert [facility] [place] Colette Catheter Vascular closure device Ventricular assist [...] x 22 mm to 14 deonna JEISON [place] with LIZ 3 flow. Residual distal disease at distal stent, overlapping distal stent was inserted with 3.0 x 8 mm JEISON [place]. Systolic's in the 80's sustained. Patient re [...] AM EST Office Visit Cardiology at [address] [phone] Mushtaq Murphy, [employer] MAINFRAME SYSTEMS PROGRAMMER Scheduled Orders Name Type Priority Associated Diagnoses [...] CBC (with Diff) (08/04/2024 6:08 AM EST) [facility] White Blood Cell 7.27 4.00 [...] HEMATOLOGY ORDERABLE S [facility] [place] [address] * Magnesium (08/04/2024 6:08 AM EST) Magnesium 0.85 0.69 - 1.07 mMol/L 08/04/2024 7:07 AM [facility] Blood VENOUS BLOOD SPECIMEN / Unknown Venipuncture / Unknown 08/04/2024 6:08 AM EST 08/04/2024 6:19 AM EST Bridgette Stauffer MD CHEMISTRY ORDERABLES [facility] [place] [address] * Basic Metabolic Panel (08/04/2024 6:08 AM EST) Glucose 93 65 - 199 mg/dL 08/04/2024 7:07 AM [facility] Comment:Glucose Concentratio n >=200 mg/dL plus symptoms is consistent with Diabetes Mellitus. Blood Urea Nitrogen 14 10 - 20 mg/dL 08/04/2024 7:07 AM [facility] Creatinine 1.07 0.80 - 1.50 mg/dL 08/04/2024 7:07 AM [facility] Sodium 138 135 [...] MD CHEMISTRY ORDERABLES [facility] [place] [address] * (ABNORMAL) CBC (with Diff) (08/03/2024 5:16 [...] MD HEMATOLOGY ORDERABLE S Performing Organization Address City/[facility]/ZIP Co de Phone Number [facility] [place] [address] * Magnesium (08/03/2024 5:16 AM EST) Magnesium 0.89 0.69 - 1.07 mMol/L 08/03/2024 5:56 AM [facility] Blood VENOUS BLOOD SPECIMEN / Unknown Venipuncture / Unknown 08/03/2024 5:16 AM EST 08/03/2024 5:23 AM EST Bridgette Stauffer MD CHEMISTRY ORDERABLES Performing Organization Address City/[facility]/ZIP Co de Phone Number [facility] [place] [address] * (ABNORMAL) Basic Metabolic Panel (08/03/2024 5:16 AM EST) Glucose 98 65 - 199 mg/dL 08/03/2024 5:56 AM [facility] Comment:Glucose Concentratio n >=200 mg/dL plus symptoms is consistent with Diabetes Mellitus. Blood Urea Nitrogen 16 10 - 20 mg/dL 08/03/2024 5:56 AM [facility] Creatinine 0.85 0.80 - 1.50 mg/dL 08/03/2024 5:56 AM [facility] Sodium 137 135 - 145 mMol/L 08/03/2024 5:56 AM [facility] Potassium 4.5 3.5 - 5.0 mMol/L 08/03/2024 5:56 AM EST [facility] Chloride 106 98 - 107 [...] MD CHEMISTRY ORDERABLES [facility] [place] [address] * POC, GLUCOSE (08/02/2024 7:47 AM EST) Glucometer, POC 89 65 - 199 mg/dL 08/02/2024 7:47 AM EST [facility] Comment:Supplemental ranges: <140 mg/dL before meals <180 mg/dL all other times of the day. Blood CAPILLARY BLOOD / Unknown 08/02/2024 7:47 AM EST 08/02/2024 7:47 AM EST Krystal Parker MD POINT OF CARE TEST O RDERABLES [facility] [place] [address] * (ABNORMAL) CBC (with Diff) (08/02/2024 4:20 AM EST) White Blood Cell 8.51 4.00 - 9.50 x10(3)/mc L 08/02/2024 4:50 AM [facility] Red Blood Cell 4.41(L) 4.58 - 5.54 x10(6)/mc L 08/02/2024 4:50 AM [facility] Hemoglobin 12.2(L) 13.7 - 16.5 g/dL 08/02/2024 4:50 AM [facility] Hematocrit 35.8(L) 40.5 - 48.5 [...] HEMATOLOGY ORDERABLE S [facility] [place] [address] * Magnesium (08/02/2024 4:20 AM EST) Magnesium 0.79 0.69 - 1.07 mMol/L 08/02/2024 5:06 AM [facility] Blood VENOUS BLOOD SPECIMEN / Unknown Venipuncture / Unknown 08/02/2024 4:20 AM EST 08/02/2024 4:37 AM EST Bridgette Stauffer MD CHEMISTRY ORDERABLES Performing Organization Address City/[facility]/ZIP Co de Phone Number [facility] [place] [address] * (ABNORMAL) Basic Metabolic Panel (08/02/2024 4:20 [...] MD CHEMISTRY ORDERABLES [facility] [place] [address] * Potassium (08/01/2024 8:39 PM EST) Potassium 4.0 3.5 - 5.0 mMol/L 08/01/2024 9:21 PM EST [facility] Blood VENOUS BLOOD SPECIMEN / Unknown Venipuncture / Unknown 08/01/2024 8:39 PM EST 08/01/2024 8:51 PM EST Aubree Silverio MD CHEMISTRY ORDERABL ES Performing Organization Address City/[facility]/ZIP Co de Phone Number [facility] [place] [address] * POC, GLUCOSE (08/01/2024 8:35 PM EST) Glucometer, POC 112 65 - 199 mg/dL 08/01/2024 8:36 PM EST [facility] Comment:Supplemental ranges: <140 mg/dL before meals <180 mg/dL all other times of the day. Blood CAPILLARY BLOOD / Unknown 08/01/2024 8:35 PM EST 08/01/2024 8:36 PM EST Krystal Parker MD POINT OF CARE TEST O RDERASHAY [facility] [place] [address] * POC, GLUCOSE (08/01/2024 4:55 PM EST) Glucometer, POC 99 65 - 199 mg/dL 08/01/2024 4:56 PM EST [facility] Comment:Supplemental ranges: <140 mg/dL before meals <180 mg/dL all other times of the day. Blood CAPILLARY BLOOD / Unknown 08/01/2024 4:55 PM EST 08/01/2024 4:56 PM EST Krystal Parker MD POINT OF CARE TEST O JOSH Performing Organization Address [facility]/ZIP Co de Phone Number [facility] [place] [address] * POC, GLUCOSE (08/01/2024 12:42 PM EST) Glucometer, POC 130 65 - 199 mg/dL 08/01/2024 12:43 PM EST [facility] Comment:Supplemental ranges: <140 mg/dL before meals <180 mg/dL all other times of the day. Blood CAPILLARY BLOOD / Unknown 08/01/2024 12:42 PM EST 08/01/2024 12:43 PM EST Krystal Parker MD POINT OF CARE TEST O JOSH [facility] [place] [address] * (ABNORMAL) Cooximetry, POC (08/01/2024 10:45 AM EST) pO2, Coox 32 mmHg 08/01/2024 10:48 AM [facility] Hemoglobin, Coox 12.9(L) 13.7 - 16.5 g/dL 08/01/2024 10:48 AM [facility] Oxyhemoglobin, Coox 66.7 % 08/01/2024 10:48 AM [facility] Carboxyhemoglo bin, Coox 1.1 % 08/01/2024 10:48 AM [facility] Comment: Nonsmokers: 0.5-1.5% COHB ?? Smokers: Variable ??but usually less than 10% ?? Toxic: 20-30% COHB ?? Lethal: Greater than 60% COHB Methemoglobin, Coox 0.3 <=1.5 % 08/01/2024 10:48 AM [facility] Blood (Mixed Venous) 08/01/2024 10:45 AM EST 08/01/2024 10:48 AM EST Krystal Parker MD POINT OF CARE TEST O RDERABLES [facility] [place] [address] * Potassium (08/01/2024 8:20 AM EST) Pathologist [facility] Potassium 4.0 3.5 - 5.0 mMol/L 08/01/2024 10:17 AM EST [facility] Blood ARTERIAL BLOOD / Unknown Venipuncture / Unknown 08/01/2024 8:20 AM EST 08/01/2024 8:30 AM EST Aubree Silverio MD CHEMISTRY ORDERABL ES [facility] [place] [address] * POC, GLUCOSE (08/01/2024 7:44 AM EST) [facility] Glucometer, POC 86 65 - 199 mg/dL 08/01/2024 7:44 AM [facility] Comment:Supplemental ranges: <140 mg/dL before meals <180 mg/dL all other times of the day. Blood CAPILLARY BLOOD / Unknown 08/01/2024 7:44 AM EST 08/01/2024 7:44 AM EST Krystal Parker MD POINT OF CARE TEST O RDERABLES [facility] [place] [address] * (ABNORMAL) CBC (with Diff) (08/01/2024 4:18 AM EST) [facility] White Blood Cell 8.51 4.00 - 9.50 x10(3)/mc L 08/01/2024 4:53 AM [facility] Red Blood Cell 4.12(L) 4.58 - [...] Gran % 0.4 % 4:53 AM EST [facility] Immature Gran Absolute <0.04 0.00 - 0.04 x10(3)/mc L 08/01/2024 4:53 AM [facility] Blood VENOUS BLOOD SPECIMEN / Unknown Venipuncture / Unknown 08/01/2024 4:18 AM EST 08/01/2024 4:29 AM EST Bridgette Stauffer MD HEMATOLOGY ORDERABLE S Performing Organization Address [facility] Co de Phone Number [facility] [place] [address] * Magnesium (08/01/2024 4:18 AM EST) Pathologist [facility] Magnesium 0.74 0.69 - 1.07 mMol/L 08/01/2024 5:00 AM [facility] Blood VENOUS BLOOD SPECIMEN / Unknown Venipuncture / Unknown 08/01/2024 4:18 AM EST 08/01/2024 4:29 AM EST Bridgette Stauffer MD CHEMISTRY ORDERABLES Performing Organization Address City/[facility] Co de Phone Number [facility] [place] [address] * (ABNORMAL) Basic Metabolic Panel (08/01/2024 4:18 AM EST) Pathologist [facility] Glucose 107 65 - 199 mg/dL [...] MD CHEMISTRY ORDERABLES [facility] [place] [address] * POC, GLUCOSE (07/31/2024 8:41 PM EST) Glucometer, POC 73 65 - 199 mg/dL 07/31/2024 8:41 PM EST [facility] Comment:Supplemental ranges: <140 mg/dL before meals <180 mg/dL all other times of the day. Blood CAPILLARY BLOOD / Unknown 07/31/2024 8:41 PM EST 07/31/2024 8:41 PM EST Krystal Parker MD POINT OF CARE TEST O RDERABLES Performing Organization Address [facility]/State/ZIP Co de Phone Number [facility] [place] [address] * CARDIAC CATHETERIZATION (07/31/2024 5:53 PM EST) Anatomical Region Laterality Modality Other Narrative 08/01/2024 12:37 PM EST ?[facility] ? Cardiac Catheterization/Intervention Report ? Patient Name: Korey Montoya Kyrie. ? Procedure Date: 07/31/2024 ? A #: [id number] ? Primary Physician: Janelle, Maldonado T ? Case #: [id number] ? File Name: [id number] ? Catheterization Order Number: [id number] ? [facility] ? Final Report [place], [place] ? Patient Name: ? Korey Montoya ?ID#: ?[id number] ? : ?1950 ? Procedure Date: ? July 31, 2024 ?Case #: ? [id number] ? Room: ? 1 ? Case [...] ? Comments: ?Impella removed from the right WAGON DRILL OPERATOR with deployment of Perclose and ?Angioseal. ??Good hemostasis. ?The attending physician was present for the entire procedure. ?Dr. Maldonado Luis M.D. was present during the moderate sedation ?intraservice time as documented by the sedation nurse. ??Case time = 00:35. ?Dr. Maldonado Lusi M.D. performed the vascular closure device and ?ventricular assist device removal. ? Maldonado Luis M.D. ? Electronically Signed by: Maldonado Luis M.D. ? Report Finalized: 08/01/2024 ??12:31 ? Procedure Note Maldonado Luis MD - 08/01/2024 [facility] Cardiac Catheterization/Intervention Report Patient Name: Korey Montoya Procedure Date: 07/31/2024 A #: [id number] Primary Physician: Maldonado Luis Case #: [id number] File Name: [id number] Catheterization Order Number: [id number] [facility] FinalReport [place], [place] Patient Name: Korey Montoya ID#:[id number] :1950 Procedure Date: July 31, 2024 Case [...] as ASA Class IV. The [facility] clinical frailtyscale is 4: Vulnerable. [...] procedures. Comments: Impella removed from the right WAGON DRILL OPERATOR with deployment of Perclose and Angioseal. [...] * POC, GLUCOSE (07/31/2024 11:04 AM EST) [facility] Glucometer, POC 82 65 - 199 mg/dL 07/31/2024 11:04 AM EST [facility] Comment:Supplemental ranges: <140 mg/dL before meals <180 mg/dL all other times of the day. Blood CAPILLARY BLOOD / Unknown 07/31/2024 11:04 AM EST 07/31/2024 11:04 AM EST Krystal Parker MD POINT OF CARE TEST O RDERABLES [facility] [place] [address] * (ABNORMAL) Blood Gas, Arterial POC (07/31/2024 8:29 AM EST) pH, Arterial 7.48(H) 7.35 - 7.45 07/31/2024 8:30 AM [facility] PCO2, Arterial 29(L) 35 - 45 mmHg 07/31/2024 8:30 AM [facility] PO2, Arterial 71(L) 85 - 104 mmHg 07/31/2024 8:30 AM [facility] Bicarbonate, Arterial 20.6 20.0 - 26.0 mmol/L 07/31/2024 8:30 AM [facility] Base Excess, Arterial -3.0 -3.0 [...] CARE TEST O RDERABLES Performing Organization Address City/[facility]/ZIP Co de Phone Number [facility] [place] [address] * POC, GLUCOSE (07/31/2024 7:47 AM EST) [facility] Signature Glucometer, POC 82 65 - 199 mg/dL 07/31/2024 7:53 AM [facility] Comment:Supplemental ranges: <140 mg/dL before meals <180 mg/dL all other times of the day. Blood CAPILLARY BLOOD / Unknown 07/31/2024 7:47 AM EST 07/31/2024 7:53 AM EST Krystal Parker MD POINT OF CARE TEST O RDERABLES Performing Organization Address City/[facility]/ZIP Co de Phone Number [facility] [place] [address] * (ABNORMAL) CBC (with Diff) (07/31/2024 1:08 [...] - 0.40 x10(3)/mc L 07/31/2024 1:28 AM [facility] Basophil % 0.3 % 07/31/2024 1:28 AM [facility] Baso Absolute <0.04 0.00 - 0.10 x10(3)/mc L 07/31/2024 1:28 AM [facility] Immature Gran % 0.2 % 1:28 AM [facility] Immature Gran Absolute <0.04 0.00 - 0.04 x10(3)/mc L 07/31/2024 1:28 AM [facility] Blood VENOUS BLOOD SPECIMEN / Unknown Venipuncture / Unknown 07/31/2024 1:08 AM EST 07/31/2024 1:18 AM EST Bridgette Stauffer MD HEMATOLOGY ORDERABLE S [facility] [place] [address] * Magnesium (07/31/2024 1:08 AM EST) Magnesium 0.89 0.69 - 1.07 mMol/L 07/31/2024 1:46 AM EST [facility] Blood VENOUS BLOOD SPECIMEN / Unknown Venipuncture / Unknown 07/31/2024 1:08 AM EST 07/31/2024 1:18 AM EST Bridgette Stauffer MD CHEMISTRY ORDERABLES [facility] [address] [place] [address] * (ABNORMAL) Basic Metabolic Panel (07/31/2024 1:08 AM EST) Pathologist [facility] Glucose 97 65 - 199 mg/dL 07/31/2024 1:46 AM EST [facility] Comment:Glucose [...] 3.5 - 5.0 mMol/L 07/31/2024 1:46 AM [facility] Chloride 110(H) 98 - 107 mMol/L [...] MD CHEMISTRY ORDERABLES [facility] [place] [address] * (ABNORMAL) Hepatic Function Panel (07/31/2024 1:08 [...] Parker MD CHEMISTRY ORDERABLES Performing Organization Address [facility]/ZIP Co de Phone Number [facility] [place] [address] * POC, GLUCOSE (07/30/2024 8:03 PM EST) Glucometer, POC 86 65 - 199 mg/dL 07/30/2024 8:03 PM EST [facility] Comment:Supplemental ranges: <140 mg/dL before meals <180 mg/dL all other times of the day. Blood CAPILLARY BLOOD / Unknown 07/30/2024 8:03 PM EST 07/30/2024 8:03 PM EST Krystal Parker MD POINT OF CARE TEST O RDERABLES Performing Organization Address [facility]/ZIP Co de Phone Number [facility] [place] [address] * Potassium (07/30/2024 8:03 PM EST) Pathologist [facility] Potassium 3.8 3.5 - 5.0 mMol/L 07/30/2024 9:13 PM EST [facility] Blood VENOUS BLOOD SPECIMEN / Unknown Venipuncture / Unknown 07/30/2024 8:03 PM EST 07/30/2024 8:22 PM EST Aubree Silverio MD CHEMISTRY ORDERABL ES Performing Organization Address City/[facility]/ZIP Co de Phone Number [facility] [place] [address] * POC, GLUCOSE (07/30/2024 6:23 PM EST) Glucometer, POC 93 65 - 199 mg/dL 07/30/2024 6:24 PM EST [facility] Comment:Supplemental ranges: <140 mg/dL before meals <180 mg/dL all other times of the day. Blood CAPILLARY BLOOD / Unknown 07/30/2024 6:23 PM EST 07/30/2024 6:24 PM EST Krystal Parker MD POINT OF CARE TEST O RDERABLES Performing Organization Address [facility] Co de Phone Number [facility] [place] [address] * POC, GLUCOSE (07/30/2024 5:08 PM EST) Glucometer, POC 78 65 - 199 mg/dL 07/30/2024 5:08 PM EST [facility] Comment:Supplemental ranges: <140 mg/dL before meals <180 mg/dL all other times of the day. Blood CAPILLARY BLOOD / Unknown 07/30/2024 5:08 PM EST 07/30/2024 5:08 PM EST Krystal Parker MD POINT OF CARE TEST O JOSH Performing Organization Address [facility] Co de Phone Number [facility] [place] [address] * (ABNORMAL) Phosphorus (07/30/2024 3:08 PM EST) Phosphorus 2.1(L) 2.5 - 4.5 mg/dL 07/30/2024 3:58 PM EST [facility] Blood VENOUS BLOOD SPECIMEN / Unknown Venipuncture / Unknown 07/30/2024 3:08 PM EST 07/30/2024 3:12 PM EST Aubree Silverio MD CHEMISTRY ORDERABL ES Performing Organization Address [facility] Co de Phone Number [facility] [place] [address] * Magnesium (07/30/2024 3:08 PM EST) Magnesium 0.90 0.69 - 1.07 mMol/L 07/30/2024 3:58 PM [facility] Blood VENOUS BLOOD SPECIMEN / Unknown Venipuncture / Unknown 07/30/2024 3:08 PM EST 07/30/2024 3:12 PM EST Aubree Silverio MD CHEMISTRY ORDERABL ES [facility] [place] [address] * (ABNORMAL) Basic Metabolic Panel (07/30/2024 3:08 PM EST) Glucose 105 65 - 199 mg/dL 07/30/2024 4:17 PM [facility] Comment:Glucose Concentratio n >=200 mg/dL plus symptoms is consistent with Diabetes Mellitus. Blood Urea Nitrogen 13 10 - 20 mg/dL 07/30/2024 4:17 PM [facility] Creatinine 1.01 0.80 - 1.50 mg/dL 07/30/2024 4:17 PM [facility] Sodium 141 135 - 145 mMol/L 07/30/2024 4:17 PM [facility] Potassium 3.4(L) 3.5 - 5.0 mMol/L 07/30/2024 4:17 PM [facility] Chloride 109(H) 98 - 107 mMol/L 07/30/2024 4:17 PM [facility] Carbon Dioxide 21(L) 22 - 31 mMol/L 07/30/2024 4:17 PM [facility] Anion Gap 11 [...] ORDERABL ES [facility] [place] [address] * ECHO LMTD W CONTRAST W LMTD SPEC DOPP COLOR DOPP (07/30/2024 11:42 AM EST) Anatomical Region Laterality Modality Cardiac Other 07/30/2024 10:2 2 AM EST Narrative 07/30/2024 12:34 PM EST [address] [place] [address] ? Echocardiogram Report Name: KOREY MONTOYA ? Study Date: 07/30/2024 10:22 AMBP: 124/66 mmHg : 1950 ? Height: 168 cm ? Account: [id number] Age: 74 yrs ? Weight: 65 kg Gender: Male ?BSA: 1.7 m2 Ordering Physician: Aubree Silverio MD Referring Physician: CHAPARRO FERRERA Performed By: OMERO Millan Reason For Study: ST elevation myocardial infarction involving left anterior descending (LAD) coronary artery Interpreting Fellow: Ivan Hernandez. Exam Location: [facility]. Interpretation Summary Left ventricle is [...] Compared to the overnight study by the ribbon cutter fellow the impella position is stable. 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 Procedure Limited - 55213. Image enhancement Definity was used for both [...] Note Kathleen Banda MD - 07/30/2024 [address] [place] [address] Echocardiogram Report Name: KOREY MONTOYA Study Date: 0:22 AMBP: 124/66 mmHg : 1950 Height: 168 cm Account: [id number] Age: 74 yrs Weight: 65 kg Gender: Male BSA: 1.7 m2 Ordering Physician: Aubree Silverio MD Referring Physician: CHAPARRO FERRERA Performed By: OMERO Millan Reason For Study: ST elevation myocardial infarction involving leftanterior descending (LAD) coronary artery Interpreting Fellow: Ivan Hernandez. Exam Location: [facility]. Interpretation Summary Left ventricle is [...] Compared to the overnight study by the ribbon cutter fellow the impella positionis stable. The global left ventricular systolic function has improvedpredominantly via recruitment outside the LAD territory which remains akinetic. Procedure Limited - 24422. Image enhancement Definity was used for both [...] CARE TEST ORDERABLES [facility] [place] [address] * (ABNORMAL) Blood Gas, Arterial POC (07/30/2024 8:16 AM EST) pH, Arterial 7.44 7.35 - 7.45 07/30/2024 8:17 AM [facility] PCO2, Arterial 29(L) 35 - 45 mmHg 07/30/2024 8:17 AM [facility] PO2, Arterial 109(H) 85 - 104 mmHg 07/30/2024 8:17 AM [facility] Bicarbonate, Arterial 19.4(L) 20.0 - [...] CARE TEST ORDERABLES [facility] [place] [address] * (ABNORMAL) Troponin - Single (07/30/2024 8:09 [...] troponin value can be found in the [facility] Test Catalog Troponin - [email or web address]/catalogs/[email or web address] Reference: Fourth [place] Definition of Myocardial Infarction. Journal of the [place] [employer] 2018;72:0057-1358 Blood VENOUS BLOOD SPECIMEN / Unknown Venipuncture / Unknown 07/30/2024 8:09 AM EST 07/30/2024 8:26 AM EST Aubree Silverio MD CHEMISTRY ORDERABL ES Performing Organization Address [facility] Co de Phone Number [facility] [place] [address] * POC, GLUCOSE (07/30/2024 7:40 AM EST) [facility] Glucometer, POC 111 65 - 199 mg/dL 07/30/2024 7:40 AM EST [facility] Comment:Supplemental ranges: <140 mg/dL before meals <180 mg/dL all other times of the day. Blood CAPILLARY BLOOD / Unknown 07/30/2024 7:40 AM EST 07/30/2024 7:40 AM EST Aubree Silverio MD POINT OF CARE TEST ORDERABLES Performing Organization Address City/[facility]/ZIP Co de Phone Number [facility] [place] [address] * (ABNORMAL) CBC (with Diff) (07/30/2024 2:11 [...] 0.90 x10(3)/mc L 07/30/2024 2:33 AM EST [facility] Eos % 0.0 % 07/30/2024 2:33 AM [facility] Eos Absolute <0.04 0.00 - 0.40 x10(3)/mc L 07/30/2024 2:33 AM [facility] Basophil % 0.2 % 07/30/2024 2:33 AM [facility] Baso Absolute <0.04 0.00 - 0.10 x10(3)/mc L 07/30/2024 2:33 AM [facility] Immature Gran % 0.4 % 2:33 AM [facility] Immature Gran Absolute 0.05(H) 0.00 - 0.04 x10(3)/mc L 07/30/2024 2:33 AM [facility] Blood VENOUS BLOOD SPECIMEN / Unknown Venipuncture / Unknown 07/30/2024 2:11 AM EST 07/30/2024 2:22 AM EST Bridgette Stauffer MD HEMATOLOGY ORDERABLE S [facility] [place] [address] * Magnesium (07/30/2024 2:11 AM EST) Magnesium 1.01 0.69 - 1.07 mMol/L 07/30/2024 2:51 AM [facility] Blood VENOUS BLOOD SPECIMEN / Unknown Venipuncture / Unknown 07/30/2024 2:11 AM EST 07/30/2024 2:22 AM EST Bridgette Stauffer MD CHEMISTRY ORDERABLES [facility] [place] [address] * (ABNORMAL) Basic Metabolic Panel (07/30/2024 2:11 [...] 3.5 - 5.0 mMol/L 07/30/2024 2:51 AM [facility] Chloride 105 98 - 107 mMol/L 07/30/2024 2:51 AM [facility] Carbon Dioxide 19(L) 22 - 31 mMol/L 07/30/2024 2:51 AM [facility] Anion Gap 11 5 - 15 mMol/L 07/30/2024 2:51 AM [facility] Calcium 7.7(L) 8.5 - 10.5 mg/dL 07/30/2024 2:51 AM [facility] Est Glomerular [...] Stauffer MD CHEMISTRY ORDERABLES Performing Organization Address City/[facility]/ZIP Co de Phone Number [facility] [place] [address] * (ABNORMAL) Cooximetry, POC (07/30/2024 1:00 AM EST) pO2, Coox 28 mmHg 07/30/2024 1:03 AM [facility] Hemoglobin, Coox 12.7(L) 13.7 - 16.5 g/dL 07/30/2024 1:03 AM EST [facility] Oxyhemoglobin, Coox 54.9 % 07/30/2024 1:03 AM EST [facility] Carboxyhemoglo bin, Coox 1.0 % [...] OF CARE TEST ORDERABLES Performing Organization Address [facility] Co de Phone Number [facility] [place] [address] * (ABNORMAL) Blood Gas, Arterial POC (07/30/2024 [...] CARE TEST ORDERABLES [facility] [place] [address] * (ABNORMAL) Troponin - Single (07/29/2024 10:31 PM EST) Pathologist [facility] Troponin-T, High Sensitivity >10,000(H ) <=22 [...] troponin value can be found in the [facility] Test Catalog Troponin - https://one-.testcatalog.org/catalogs/565/files/62498 Reference: Fourth [place] Definition of Myocardial Infarction. Journal of the [place] [employer] 2018;72:2896-1751 Blood VENOUS BLOOD SPECIMEN / Unknown Venipuncture / Unknown 07/29/2024 10:31 PM EST 07/29/2024 10:36 PM EST Yrn Velazquez MD CHEMISTRY ORDERABL ES Performing Organization Address City/[facility]/ZIP Co de Phone Number [facility] [place] [address] * Potassium (07/29/2024 8:11 PM EST) Potassium 4.1 3.5 - 5.0 mMol/L 07/29/2024 8:52 PM EST [facility] Blood VENOUS BLOOD SPECIMEN / Unknown Venipuncture / Unknown 07/29/2024 8:11 PM EST 07/29/2024 8:16 PM EST Aubree Silverio MD CHEMISTRY ORDERABL ES Performing Organization Address [facility]/ZIP Co de Phone Number [facility] [place] [address] * (ABNORMAL) Troponin - Single (07/29/2024 8:11 [...] troponin value can be found in the [facility] Test Catalog Troponin - https://one-.testcatalog.org/catalogs/565/files/65458 Reference: Fourth [place] Definition of Myocardial Infarction. Journal of the [place] [employer] 2018;72:3018-1497 Blood VENOUS BLOOD SPECIMEN / Unknown Venipuncture / Unknown 07/29/2024 8:11 PM EST 07/29/2024 8:16 PM EST Aubree Silverio MD CHEMISTRY ORDERABL ES Performing Organization Address City/[facility]/ZIP Co de Phone Number [facility] [place] [address] * (ABNORMAL) Phosphorus (07/29/2024 8:11 PM EST) Phosphorus 2.1(L) 2.5 - 4.5 mg/dL 07/29/2024 8:52 PM EST [facility] Blood VENOUS BLOOD SPECIMEN / Unknown Venipuncture / Unknown 07/29/2024 8:11 PM EST 07/29/2024 8:16 PM EST Aubree Silverio MD CHEMISTRY ORDERABL ES Performing Organization Address City/[facility]/ZIP Co de Phone Number [facility] [place] [address] * POC, GLUCOSE (07/29/2024 8:09 PM EST) Glucometer, POC 142 65 - 199 mg/dL 07/29/2024 8:09 PM EST [facility] Comment:Supplemental ranges: <140 mg/dL before meals <180 mg/dL all other times of the day. Blood CAPILLARY BLOOD / Unknown 07/29/2024 8:09 PM EST 07/29/2024 8:09 PM EST Aubree Silverio MD POINT OF CARE TEST ORDERABLES Performing Organization Address City/[facility]/ZIP Co de Phone Number [facility] [place] [address] * ABORH RECHECK (07/29/2024 6:43 PM EST) Pathologist [facility] ABORH Recheck AB POSITIVE 07/29/2024 10:13 PM EST [facility] Blood VENOUS BLOOD SPECIMEN / Unknown Venipuncture / Unknown 07/29/2024 6:43 PM EST 07/29/2024 7:15 PM EST Aubree Silverio MD BLOOD BANK LAB ORD ERABLES Performing Organization Address City/[facility] Co de Phone Number [facility] [place] [address] * POC, GLUCOSE (07/29/2024 5:57 PM EST) [facility] Glucometer, POC 166 65 - 199 mg/dL 07/29/2024 5:57 PM EST [facility] Comment:Supplemental ranges: <140 mg/dL before meals <180 mg/dL all other times of the day. Blood CAPILLARY BLOOD / Unknown 07/29/2024 5:57 PM EST 07/29/2024 5:57 PM EST Aubree Silverio MD POINT OF CARE TEST ORDERABLES Performing Organization Address City/[facility]/ZIP Co de Phone Number [facility] [place] [address] * Type and screen ([facility]/CGP/MAGALIE) (07/29/2024 5:56 PM EST) ABORH Type AB POSITIVE 07/29/2024 9:44 PM EST [facility] PATIENT HISTORY Not Found 07/29/2024 9:44 PM EST [facility] Expires at [id number] on: 08/01/2024 07/29/2024 9:44 PM EST [facility] ANTIBODY SCREEN AUTOMATED Negative 07/29/2024 9:44 PM EST [facility] T&S only valid at [facility] 07/29/2024 9:44 PM EST [facility] Blood VENOUS BLOOD SPECIMEN / Unknown Venipuncture / Unknown 07/29/2024 5:56 PM EST 07/29/2024 6:07 PM EST Narrative [facility] - 07/29/2024 9:44 PM EST This Type and Screen result is only valid at the [facility] Aubree Silverio MD BLOOD BANK LAB ORD ERABLES [facility] [place] [address] * (ABNORMAL) Troponin - Single (07/29/2024 4:52 PM EST) [facility] Troponin-T, High Sensitivity >10,000(H ) [...] troponin value can be found in the [facility] Test Catalog Troponin - https://[facility]-.testcatalog.org/catalogs/565/files/46994 Reference: Fourth [place] Definition of Myocardial Infarction. Journal of the [place] [employer] 2018;72:0837-0426 Blood VENOUS BLOOD SPECIMEN / Unknown Venipuncture / Unknown 07/29/2024 4:52 PM EST 07/29/2024 4:57 PM EST Aubree Silverio MD CHEMISTRY ORDERABL ES [facility] [place] [address] * EKG 12 Lead (07/29/2024 4:21 PM EST) Ventricular rate 72 BPM MUSE SYSTEM Atrial Rate 72 BPM MUSE SYSTEM P-R Interval 168 ms MUSE SYSTEM QRS Duration 82 ms MUSE SYSTEM Q-T Interval 392 ms MUSE SYSTEM QTC Calculated (Bezet) 429 ms MUSE SYSTEM Calculated P [place] 71 degrees MUSE SYSTEM Calculated R [place] 77 degrees MUSE SYSTEM Calculated T [place] 28 degrees MUSE SYSTEM INTERPRETATION Sinus rhythm [...] Silverio MD ECG ORDERABLES Performing Organization Address [facility] Co de Phone Number MUSE SYSTEM [...] OF CARE TEST ORDERABLES Performing Organization Address City/[facility]/ZIP Co de Phone Number [facility] [place] [address] * POC, GLUCOSE (07/29/2024 4:19 PM EST) Glucometer, POC 185 65 - 199 mg/dL 07/29/2024 4:19 PM EST [facility] Comment:Supplemental ranges: <140 mg/dL before meals <180 mg/dL all other times of the day. Blood CAPILLARY BLOOD / Unknown 07/29/2024 4:19 PM EST 07/29/2024 4:19 PM EST Aubree Silverio MD POINT OF CARE TEST ORDERABLES Performing Organization Address City/[facility]/ZIP Co de Phone Number [facility] [place] [address] * Blood culture (07/29/2024 4:08 PM EST) Blood Culture No growth at 120 hours 08/03/2024 5:01 PM EST [facility] Blood VENOUS BLOOD SPECIMEN / Unknown Venipuncture / Unknown 07/29/2024 4:08 PM EST 07/29/2024 4:15 PM EST Aubree Silverio MD MICROBIOLOGY - BLO OD ORDERABLES [facility] [place] [address] * Blood culture (07/29/2024 4:08 PM EST) Blood Culture No growth at 120 hours 08/03/2024 5:01 PM EST [facility] Blood VENOUS BLOOD SPECIMEN / Unknown Venipuncture / Unknown 07/29/2024 4:08 PM EST 07/29/2024 4:26 PM EST Aubree Silverio MD MICROBIOLOGY - BLO OD ORDERABLES [facility] [place] [address] * XR Chest One View (07/29/2024 2:30 PM EST) WORKSTATION ID [id number] RAD Anatomical Region Laterality Modality Chest N/A [...] questions please contact the health health care consultant that requested your imaging first. ? Electronically signed by: Chris Candelaria MD, [facility] ([phone]), at 07/29/2024 3:21 PM Narrative 07/29/2024 3:21 [...] have questions please contactthe health health care consultant that requested your imaging first. Electronically signed by: Chris Candelaria MD, [facility]([phone]), at 07/29/2024 3:21 PM Vahe Marvin MD IMG DX ORDERABLES * (ABNORMAL) APTT (07/29/2024 2:03 PM EST) [facility] Partial Thromboplastin Time >160(HHH) 25 - 37 sec 07/29/2024 2:56 PM EST [facility] Blood VENOUS BLOOD SPECIMEN / Unknown Venipuncture / Unknown 07/29/2024 2:03 PM EST 07/29/2024 2:13 PM EST Vahe Marvin MD HEMATOLOGY ORDERABLE S [facility] [place] [address] * (ABNORMAL) Prothrombin Time (07/29/2024 2:03 PM EST) [facility] Prothrombin Time 14.2(H) 9.4 - [...] MD HEMATOLOGY ORDERABLE S Performing Organization Address City/[facility]/ZIP Co de Phone Number [facility] [place] [address] * CRP, acute inflammation (07/29/2024 2:03 PM EST) C-Reactive Protein <3.0 <=4.9 mg/L 07/29/2024 2:52 PM EST [facility] Blood VENOUS BLOOD SPECIMEN / Unknown Venipuncture / Unknown 07/29/2024 2:03 PM EST 07/29/2024 2:14 PM EST Vahe Marvin MD CHEMISTRY ORDERABLES Performing Organization Address City/[facility]/ZIP Co de Phone Number [facility] [place] [address] * Lipid Panel (Reflex Direct LDL) (07/29/2024 [...] Marvin MD CHEMISTRY ORDERABLES Performing Organization Address City/[facility]/ZIP Co de Phone Number [facility] [place] [address] * TSH [place] (07/29/2024 2:03 PM EST) [facility] Thyroid Stimulating Hormone 0.70 0.27 - 4.20 mcIU/mL 07/29/2024 2:52 PM EST [facility] Blood VENOUS BLOOD SPECIMEN / Unknown Venipuncture / Unknown 07/29/2024 2:03 PM EST 07/29/2024 2:14 PM EST Vahe Marvin MD CHEMISTRY ORDERABLES Performing Organization Address City/[facility]/ZIP Co de Phone Number [facility] [place] [address] * Hemoglobin A1c (07/29/2024 2:03 PM EST) [...] red blood cell turnover may not be account representative of glycemic control. Reference Interval: 4.3 [...] into estimated average glucose values. ??Diabetes Care 2008:31(8):5640-9444. Additional resources are available on the ADA website (diabetes.org). Vahe Marvin MD CHEMISTRY ORDERABLES [facility] [place] [address] * (ABNORMAL) CBC (with Diff) (07/29/2024 2:03 [...] % 0.3 % 07/29/2024 2:18 PM EST [facility] Baso Absolute 0.05 0.00 - 0.10 x10(3)/mc L 07/29/2024 2:18 PM EST [facility] Immature Gran % 0.5 % 2:18 PM [facility] Immature Gran Absolute 0.09(H) 0.00 - 0.04 x10(3)/mc L 07/29/2024 2:18 PM EST [facility] Blood VENOUS BLOOD SPECIMEN / Unknown Venipuncture / Unknown 07/29/2024 2:03 PM EST 07/29/2024 2:13 PM EST Vahe Marvin MD HEMATOLOGY ORDERABLE S [facility] [place] [address] * Phosphorus (07/29/2024 2:03 PM EST) Phosphorus 2.5 2.5 - 4.5 mg/dL 07/29/2024 2:52 PM EST [facility] Blood VENOUS BLOOD SPECIMEN / Unknown Venipuncture / Unknown 07/29/2024 2:03 PM EST 07/29/2024 2:14 PM EST Vahe Marvin MD CHEMISTRY ORDERABLES [facility] [place] [address] * Magnesium (07/29/2024 2:03 PM EST) Magnesium 0.70 0.69 - 1.07 mMol/L 07/29/2024 2:52 PM EST [facility] Blood VENOUS BLOOD SPECIMEN / Unknown Venipuncture / Unknown 07/29/2024 2:03 PM EST 07/29/2024 2:14 PM EST Vahe Marvin MD CHEMISTRY ORDERABLES Performing Organization Address [facility]/ZIP Co de Phone Number [facility] [place] [address] * (ABNORMAL) Comprehensive metabolic panel (07/29/2024 2:03 PM EST) Pathologist [facility] Glucose 243(H) 65 - 199 mg/dL [...] [facility] Aspartate Aminotransferase 07/29/2024 3:11 PM EST [facility] Comment:Unable to report due to hemolysis. Alanine Aminotransferase 56(H) 0 - 55 unit/L 07/29/2024 3:11 PM [facility] Alkaline Phosphatase 58 40 - 130 unit/L 07/29/2024 3:11 PM [facility] Bilirubin, Total 0.5 <=1.3 mg/dL 07/29/2024 3:11 PM [facility] Est Glomerular Filtration Rate - Male 91 mL/min/1. 73 m?? 07/29/2024 3:11 PM [facility] Comment: This [...] MD CHEMISTRY ORDERABLES [facility] [place] [address] * (ABNORMAL) Troponin - Single (07/29/2024 2:03 PM EST) [facility] Troponin-T, High Sensitivity >10,000(H ) [...] troponin value can be found in the [facility] Test Catalog Troponin - https://[facility]-.testcatalog.org/catalogs/565/files/86183 Reference: Fourth [place] Definition of Myocardial Infarction. Journal of the [place] College [employer] 2018;72:2890-6468 Blood VENOUS BLOOD SPECIMEN / Unknown Venipuncture / Unknown 07/29/2024 2:03 PM EST 07/29/2024 2:14 PM EST Vahe Marvin MD CHEMISTRY ORDERABLES [facility] [place] [address] * (ABNORMAL) Blood Gas, Venous POC (07/29/2024 2:01 PM EST) [facility] pH, Venous 7.30(L) 7.32 - 7.42 07/29/2024 [...] Venous 0.3 <=1.5 % 07/29/2024 2:02 PM [facility] Sodium, Venous 137 135 - 145 mmol/L 07/29/2024 2:02 PM [facility] Potassium, Venous 3.6 3.5 - 5.0 mmol/L 07/29/2024 2:02 PM [facility] Chloride, Venous 103 98 - 107 mmol/L 07/29/2024 2:02 PM [facility] Glucose, Venous 229(H) 65 - [...] CARE TEST O RDERABLES Performing Organization Address [facility]/State/ZIP Co de Phone Number [facility] [place] [address] * CARDIAC CATHETERIZATION (07/29/2024 1:20 PM EST) Anatomical Region Laterality Modality Other Narrative 07/29/2024 2:02 PM EST ?[facility] ? Cardiac Catheterization/Intervention Report ? Patient Name: Korey Montoya Kyrie. ? Procedure Date: 07/29/2024 ? A #: [id number] ? Primary Physician: Vahe Marvin S ? Case #: [id number] ? File Name: [id number] ? Catheterization Order Number: [id number] ? [facility] ? Final Report [place], [place] ? Patient Name: ? Korey Montoya ?ID#: ?[id number] ? : ?1950 ? Procedure Date: ? [...] as ASA Class IV. The [facility] clinical frailty scale ?is 4: Vulnerable. ? Diagnostic Tests: ?Electrocardiography: ? EKG was assessed by ECG. EKG was Abnormal. EKG showed ST Deviation ? >= 0.5 mm. ?Medications Prior to Procedure: ? Angiotensin II Receptor Elvis and Statin. ? Indications for Diagnostic Cath: ?The priority of the diagnostic procedure was Emergent. The indication for ?the director geophysical laboratory visit is ACS less than or equal [...] 3.5 guiding catheter and a 3.5 Fr [place] [address] ??20 Mhz using ?Manual pullback. ??Imaging [...] ? A premounted 3.00 x 22 mm [place] (LOW) was deployed ? with a maximum [...] ??A premounted 3.00 x 08 mm [place] (LOW) ? was deployed with a maximum [...] dose administered prior to arrival in the director geophysical laboratory. ?Recommended anti-platelet/anti-thrombotic regimen: ?Start aspirin 81 mg daily now and continue for 12 months then stop. ?Start clopidogrel 75 mg daily now and continue for indefinitely. ?These recommendations are made at the time of the intervention. Patient ?and provider preferences or a changing clinical situation may require ?modification of this regimen. Consult [facility] Interventional Cardiology for ?questions. [...] able ?to start weaning his inotropes/vasopressors. A [place] Colette catheter was ?placed demonstrating improvement in [...] ventricular assist device insertion, right heart ?catheterization, [place] (flow directed cath) insertion, access site ?angiography, vascular ultrasound, venous line / sheath insert and vascular ?closure device. ? Vahe S Shavonne, M.D. ? Electronically Signed by: Vahe Quiñones Shavonne, M.D. ? Report Finalized: 07/29/2024 ??13:55 ? Report Last Ammended: 09/20/2024 ??15:21 ? Procedure Note Vahe Marvin MD - 09/20/2024 [facility] Cardiac Catheterization/Intervention Report Patient Name: Korey Montoya Procedure Date: 07/29/2024 A #: [id number] Primary Physician: Vahe Marvin Case #: [id number] File Name: [id number] Catheterization Order Number: [id number] [facility] FinalReport [place], [place] Patient Name: Korey Montoya ID#:[id number] :1950 Procedure Date: July 29, 2024 Case [...] as ASA Class IV. The [facility] clinical frailtyscale is 4: Vulnerable. Diagnostic Tests: Electrocardiography: EKG was assessed by ECG. EKG was Abnormal. EKG showed STDeviation >= 0.5 mm. Medications Prior to Procedure: Angiotensin II Receptor Elvis and Statin. Indications for Diagnostic Cath: The priority of the diagnostic procedure was Emergent. Theindication for the director geophysical laboratory visit is ACS less than or equal [...] 3.5 guiding catheter and a 3.[address] [place] [address] [place] [address] 20 Mhzusing Manual pullback. Imaging was [...] The priority for the procedure was Emergent.The [facility] indication for the procedure was STEMI-Immediate [...] The lesion was predilated with a 2.00mm [id number] MM balloon with a maximum inflation pressure of 12atmospheres. A premounted 3.00 x 22 mm [place] (LOW) wasdeployed with a maximum inflation pressure [...] A premounted 3.00 x 08 mm [place](LOW) was deployed with a maximum inflation pressure [...] dose administered prior to arrival in the director geophysical laboratory. Recommended anti-platelet/anti-thrombotic regimen: Start aspirin 81 mg daily now and continue for 12 months then stop. Start clopidogrel 75 mg daily now and continue for indefinitely. These recommendations are made at the time of the intervention.Patient and provider preferences or a changing clinical situation mayrequire modification of this regimen. Consult [facility] Interventional Cardiologyfor questions. The [...] wereable to start weaning his inotropes/vasopressors. A [place] Colette catheterwas placed demonstrating improvement in his [...] ventricular assist device insertion, right heart catheterization, [place] (flow directed cath) insertion, access site angiography, [...] TEST O RDERABLES [facility] [place] [address] * (ABNORMAL) BLOOD GAS, POC (07/29/2024 12:12 [...] City/State/[facility] Co de Phone Number [facility] [place] [address] documented in this encounter Visit Diagnoses Not [...] PRN, Starting on 07/29/24 at 1232, Until 07/30/24 at 1307, Intra-Operative (Intra-Procedure), Routine Given 07/29/2024 [...] 250 mL infusion CONTINUOUS PRN, Starting on 07/29/24 at 1201, Until 07/29/24 at 1607, Intra-Operative [...] (porcine) (1,000 units/mL) injection PRN, Starting on Tue07/29/24 at 1151, Until Tue07/30/24 at 1306, Intra-Operative (Intra-Procedure), Routine Given 07/29/2024 11:51 AM EST 5,000 Units iohexoL (Omnipaque) (350 mg/mL) solution PRN, Starting on Tue07/29/24 at 1321, Until Tue07/30/24 at 1306, Intra-Operative (Intra-Procedure), Routine Given 07/29/2024 [...] (Isoptin) (2.5 mg/mL) injection PRN, Starting on Tue07/29/24 at 1147, Until Tue07/30/24 at 1307, Administer [...] Routine documented in this encounter Care Teams Spa Director/Finance Relationship Specialty Start Date End Date Yoel Artis APRN [address] [place] [id number] PCP - General Internal Medicine 11/18/22 07/29/24 documented as of this encounter
--- OUTSIDE RECORDS SUMMARY | 2024-09-21 11:30 | XMS_ITS | Encounter Summary ---
[place] [address] Care Team Providers Care Manager Surgical Name Role Phone Alexia Mtz FREDRICK Primary Care Provider [phone] Reason for Visit * Auth/Cert (Routine) Specialty Diagnoses / Procedures Referred By Theodore muro Referred To Contact Diagnoses STEMI (ST elevation myocardial infarction) STEMI Procedures ER SUI Vahe Marvin MD [facility] [place] [place] [address] [facility] Referral ID Status Reason Start Date Expiration Date Visits Re quested Visits Authorized [id number] 1 1 Encounter Details Date Type Department Care Team (Late st Contact Info) Description 07/31/2024 4:30 PM EST - 07/31/2024 5:30 PM EST [place] [address] Maldonado Luis MD [facility] [place] [place] [address] CARDIAC CATHETERIZATION Social History Tobacco Use Types Packs/Day Years Used Date Smoking Tobacco: Former Cigarettes Smokeless Tobacco: Never Alcohol Use Standard Drinks/Week Comments Not Currently 0 (1 standard drink = 0.6 oz pur e alcohol) [facility] Utilities Answer Date Recorded In the past 12 months has [employer] electric, gas, oil, or water company threatened [...] health care facility (including now)? No 07/30/2024 DH IPV Inpatient [...] contact your inpatient physician through the [facility] Information Technology Analyst . Issues afterhours and on weekends will [...] Patient transferred via air ambulance to [facility] on 07/29 for LHC and [...] Was transferred via air ambulance to [facility] for further management and LHC [...] the next year. Access was via right LINE SERVICE SUPERVISOR and this sitewas clean, dry and intact [...] for Chest pain. Replaces: nitroGLYcerin 400 mcg/spray [place], Non-Aerosol 0.4 mg Quantity: 90 tablet Refills: [...] Refills: 0 STOPPED Medications nitroGLYcerin 400 mcg/spray [place], Non-Aerosol Commonly known as: NITROLINGUAL Replaced by: [...] of one year. After this time, your high school director will determine if you need to continue [...] away. Stay on the phone. The emergency power house control room operator will tell you what to do. [...] appointments: During 8am-5pm Tuesday through Tuesday call [phone] to speak with a nurse in the cardiology clinic All other times call [phone] and ask to speak to the university tutor ediphone operator. Follow up Appointments: PCP Alexia Mtz, MANAGER TRAFFIC [phone]. Please call to establish a follow up appointment within 1-2 weeks of discharge. Cardiology. Referral to heart failure has been sent. General Instructions None Future Appointments and Orders Future Orders Complete By Expires Referral to Cardiac Rehab [[id number] Custom] As directed Process Instructions: If no progress note charted, please enter Clinical details in comments. Scheduling Instructions: Questions: My question or request is: STEMI, PCI- cardiac rehab at [facility] Referral to Cardiology [REF12 Custom] [...] of one year. After this time, your high school director will determine if you need to continue [...] away. Stay on the phone. The emergency power house control room operator will tell you what to do. [...] appointments: During 8am-5pm Tuesday through Tuesday call [phone] to speak with a nurse in the cardiology clinic All other times call [phone] and ask to speak to the university tutor ediphone operator. Follow up Appointments: PCP Alexia Mtz, MANAGER TRAFFIC [phone]. Please call to establish a follow up [...] Patient transferred via air ambulance to [facility] on 07/29 for LHC and LOW to LAD for 100% occlusion Social History: Pt lives with his in a 1 level home with 2 NAOMI. 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 He [...] Total time: 35 (tef) minutes Time IN/OUT: 9373-3714 ZAIDA DUBOSE PT Pager: [phone] Physical Therapy Inpatient Rehabilitation Department * Yrn Ward MD - 08/03/2024 10:38 AM EST CV HOSPITALIST 2 - [facility] DAILY PROGRESS NOTE Page [phone] to reach a provider 04/04 Admit Date: [...] or before 29-JUL-2024) Lateral injury pattern ACUTE HI / STEMI Abnormal ECG When compared with [...] Compared to the overnight study by the ediphone operator fellow the impella position is stable. 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 [facility] 07/29/24 Conclusions: * One vessel coronary artery disease (LAD) * Mild pulmonary hypertension * Elevated pulmonary capillary wedge pressure * Successful stent insertion of the proximal LAD lesion * See Dual Antiplatelet (DAPT) Recommendations above * Successful impella placement for cardiogenic shock. Telemetry: I have personally reviewed and interpreted the telemetry from the last 24 hours. [facility] Assessment: ASSESSMENT: Korey Montoya is a 74 y.o. male w/ PMH of hypertension, HLD, and BPH who presents for chief concern of chest pain after being found to have ST elevations on EKG. Patient transferred via air ambulance to [facility] on 07/29 for C and LOW to [...] to be determined OT: PCP Alexia Mtz, MANAGER TRAFFIC [phone] * Zaida Dubose, PT - 08/02/2024 2:08 PM EST Physical Therapy Evaluation Patient profile: Korey Montoya is a 74 y.o. male w/ PMH of hypertension, HLD, and BPH who presents for chief concern of chest pain after being found to have ST elevations on EKG. Patient transferred via air ambulance to [facility] on 07/29 for LHC and LOW to LAD for 100% occlusion Social History: Pt lives with his in a 1 level home with 2 NAOMI. 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 He [...] Total time: 37 (eval) minutes Time IN/OUT: 3521-2800 ZAIDA DUBOSE, PT Pager: [phone] Physical Therapy Inpatient Rehabilitation Department * Gagan [...] Patient transferred via air ambulance to [facility] on 07/29 for LHC and [...] PCP: Alexia Mtz APRN PCP phone number: [phone] Date of Admission: 07/29/2024 ( Hospital Day 4 days ) Attending:Bridgette Stauffer MD ID: Korey Montoya is a 74 y.o. male w/ PMH of hypertension, HLD, and BPH on Hospital Day4 for chief concern of chest pain after being found to have ST elevations on EKG. Patient transferred via air ambulance to [facility] on 07/29 for LHC and [...] 07/29/24 1621 PHART 7.48* 7.44 7.38 7.37 IQL5DFI 29* 29* 34* 36 PO2ART 71* 109* 141* 71* QTO6VPY 20.6 19.4* 19.5* 20.4 VBG (Venous Blood Gas) Recent Labs 07/29/24 1401 PHVEN 7.30* PO2VEN 39 EMM4ZFF 20.1* Mixed Venous Sat No results for input(s): X5HNBF3 in the last 168 hours. Objective: Vitals [...] 07/29/24 1621 PHART 7.48* 7.44 7.38 7.37 PIK0FOB 29* 29* 34* 36 PO2ART 71* 109* 141* 71* KRT0DWY 20.6 19.4* 19.5* 20.4 VBG (Venous Blood Gas) Recent Labs 07/29/24 1401 PHVEN 7.30* PO2VEN 39 TBR2IES 20.1* Mixed Venous Sat No results for input(s): V8GFJW9 in the last 168 hours. Microbiology: Microbiology Results (Last 30 days) Procedure Component Value Units Date/Time Blood culture [[id number]] Collected: 07/29/241607 Lab Status: Preliminary result Specimen: Blood, Venous Updated: 08/01/241700 Blood Culture No growth at 72 hours Blood culture [[id number]] Collected: 07/29/241607 Lab Status: Preliminary result Specimen: Blood, Venous Updated: 08/01/241700 Blood Culture No growth at 72 hours Imaging: Results for orders placed or performed during the hospital encounter of 07/29/24 XR Chest One View (Exam End: 07/29/2024 2:30 PM) Result Value WORKSTATION ID [id number] Impression 1. No pulmonary edema. 2. No pleural effusion. 3. No pneumothorax. Thank you for letting us participate in the care of this patient. If you are a health care provider and have any questions regarding this report, please contact the number below. For patients who have questions please contact the health career guidance technician that requested your imaging first. ( 07/30/24) [...] Compared to the overnight study by the ediphone operator fellow the impella position is stable. [...] Patient transferred via air ambulance to [facility] on 07/29 for LHC and [...] MD Internal Medicine, PGY-1 Cardiology, [facility] 08/02/24 12:45 PM CARDIOLOGY STAFF NOTE I [...] today). Transfer to floor. Krystal Parker MD, [facility] [place] Staff Managing Partner accounts payable processor * Gagan Catherine MD - 08/01/2024 [...] Patient transferred via air ambulance to [facility] on 07/29 for LHC and LOW to LAD for 100% occlusion. TTE showed apical akinesis and inferior hypokinesis with EF 20%. RHC showed elevated filling pressures. Impella placed and P-level 6 at time of transfer to [facility]. CI initially 1.97, improved to 2.2 After impella. Received about 3 L of fluid during procedural course. Patient initially required norepinephrine 30, epinephrine 10, and vasopressin 0.04 for hemodynamic support, which was weaned upon arrival to [facility] to norepinephrine 20and levo 0.04 N - [...] PCP: Alexia Mtz APRN PCP phone number: [phone] Date of Admission: 07/29/2024 ( Hospital Day 3 days ) Attending:Krystal Parker MD ID: Korey Montoya is a 74 y.o. male w/ PMH of hypertension, HLD, and BPH on Hospital Day3 for chief concern of chest pain after being found to have ST elevations on EKG. Patient transferred via air ambulance to [facility] on 07/29 for LHC and [...] 07/29/24 1621 PHART 7.48* 7.44 7.38 7.37 TLX4HES 29* 29* 34* 36 PO2ART 71* 109* 141* 71* DNT8DBZ 20.6 19.4* 19.5* 20.4 VBG (Venous Blood Gas) Recent Labs 07/29/24 1401 PHVEN 7.30* PO2VEN 39 THZ4HOZ 20.1* Mixed Venous Sat No results for input(s): C2TCIB2 in the last 168 hours. PA Catheter [...] 07/29/24 1621 PHART 7.48* 7.44 7.38 7.37 AYH1SPJ 29* 29* 34* 36 PO2ART 71* 109* 141* 71* NAR1WIL 20.6 19.4* 19.5* 20.4 VBG (Venous Blood Gas) Recent Labs 07/29/24 1401 PHVEN 7.30* PO2VEN 39 WJM2CHQ 20.1* Mixed Venous Sat No results for input(s): L3FRPS5 in the last 168 hours. Microbiology: Microbiology Results (Last 30 days) Procedure Component Value Units Date/Time Blood culture [[id number]] Collected: 07/29/24 160 Lab Status: Preliminary result Specimen: Blood, Venous Updated: 07/31/24 170 Blood Culture No growth at 48 hours Blood culture [[id number]] Collected: 07/29/24 1608 Lab Status: Preliminary result Specimen: Blood, Venous Updated: 07/31/24 1701 Blood Culture No growth at 48 hours Imaging: Results for orders placed or performed during the hospital encounter of 07/29/24 XR Chest One View (Exam End: 07/29/2024 2:30 PM) Result Value WORKSTATION ID [id number] Impression 1. No pulmonary edema. 2. No pleural effusion. 3. No pneumothorax. Thank you for letting us participate in the care of this patient. If you are a health care provider and have any questions regarding this report, please contact the number below. For patients who have questions please contact the health career guidance technician that requested your imaging first. ( 07/30/24) [...] Compared to the overnight study by the ediphone operator fellow the impella position is stable. [...] Patient transferred via air ambulance to [facility] on 07/29 for LHC and [...] MD Internal Medicine, PGY-1 Cardiology, [facility] 08/01/24 7:13 AM CARDIOLOGY STAFF NOTE I [...] with him; questions answered. Krystal Parker MD, [facility], [facility] Staff Managing Partner accounts payable processor * Krystal Parker MD - 07/31/2024 [...] Patient transferred via air ambulance to [facility] on 07/29 for LHC and LOW to LAD for 100% occlusion. TTE showed apical akinesis and inferior hypokinesis with EF 20%. RHC showed elevated filling pressures. Impella placed and P-level 6 at time of transfer to [facility]. CI initially 1.97, improved to 2.2 After impella. Received about 3 L of fluid during procedural course. Patient initially required norepinephrine 30, epinephrine 10, and vasopressin 0.04 for hemodynamic support, which was weaned upon arrival to [facility] to norepinephrine 20and levo 0.04 N - [...] PCP: Alexia Mtz APRN PCP phone number: [phone] Date of Admission: 07/29/2024 ( Hospital Day 2 days ) Attending:Krystal Parker MD ID: Korey Montoya is a 74 y.o. male w/ PMH of hypertension, HLD, and BPH on Hospital Day2 for chief concern of chest pain after being found to have ST elevations on EKG. Patient transferred via air ambulance to [facility] on 07/29 for LHC and [...] 0057 07/29/24 1621 PHART 7.44 7.38 7.37 TSN5QZU 29* 34* 36 PO2ART 109* 141* 71* KJO6WKB 19.4* 19.5* 20.4 VBG (Venous Blood Gas) Recent Labs 07/29/24 1401 PHVEN 7.30* PO2VEN 39 HVX8PSI 20.1* Mixed Venous Sat No results for input(s): K0KHBY5 in the last 168 hours. PA Catheter [...] 0057 07/29/24 1621 PHART 7.44 7.38 7.37 OYR7KAM 29* 34* 36 PO2ART 109* 141* 71* IWW6WWI 19.4* 19.5* 20.4 VBG (Venous Blood Gas) Recent Labs 07/29/24 1401 PHVEN 7.30* PO2VEN 39 QGQ3NWW 20.1* Mixed Venous Sat No results for input(s): V4LATO7 in the last 168 hours. Microbiology: Microbiology Results (Last 30 days) Procedure Component Value Units Date/Time Blood culture [[id number]] Collected: 07/29/241607 Lab Status: Preliminary result Specimen: Blood, Venous Updated: 07/30/241700 Blood Culture No Growth at 18-24 hrs. Blood culture [[id number]] Collected: 07/29/241607 Lab Status: Preliminary result Specimen: Blood, Venous Updated: 07/30/241700 Blood Culture No Growth at 18-24 hrs. Imaging: Results for orders placed or performed during the hospital encounter of 07/29/24 XR Chest One View (Exam End: 07/29/2024 2:30 PM) Result Value WORKSTATION ID [id number] Impression 1. No pulmonary edema. 2. No pleural effusion. 3. No pneumothorax. Thank you for letting us participate in the care of this patient. If you are a health care provider and have any questions regarding this report, please contact the number below. For patients who have questions please contact the health career guidance technician that requested your imaging first. ( 07/30/24) [...] Compared to the overnight study by the ediphone operator fellow the impella position is stable. [...] Patient transferred via air ambulance to [facility] on 07/29 for LHC and [...] work to optimize volume status while continuing ykfdkin-crnbkd-tvenpgocoz therapies at this time. Obtain comprehensive TTE. [...] Patient transferred via air ambulance to [facility] on 07/29 for LHC and LOW to LAD for 100% occlusion. TTE showed apical akinesis and inferior hypokinesis with EF 20%. RHC showed elevated filling pressures. Impella placed and P-level 6 at time of transfer to [facility]. CI initially 1.97, improved to 2.2 After impella. Received about 3 L of fluid during procedural course. Patient initially required norepinephrine 30, epinephrine 10, and vasopressin 0.04 for hemodynamic support, which was weaned upon arrival to [facility] to norepinephrine 20and levo 0.04 N - [...] the unit. Gagan Catherine MD 07/30/2024 * Susnanah Ornelas MD - 07/30/2024 6:22 AM EST Images from the original note were not included. Cardiology ICU Progress Note Patient info: Name: Korey Montoya : 1950 PCP: Yoel Artis APRN PCP phone number: [phone] Date of Admission: 07/29/2024 ( Hospital Day 1 day ) Attending:Jay Silverio MD ID: Korey Montoya is a 74 y.o. male w/ PMH of hypertension, HLD, and BPH on Hospital Day1 for chief concern of chest pain after being found to have ST elevations on EKG. Patient transferred via air ambulance to [facility] on 07/29 for LHC and LOW to LAD for 100% occlusion. 24 Hour Events/Subjective: Yesterday: - Admitted to the [facility] - After his LHC, he demonstrated significant [...] 0057 07/29/24 1621 PHART 7.44 7.38 7.37 ZXT6LIN 29* 34* 36 PO2ART 109* 141* 71* TXA4XAG 19.4* 19.5* 20.4 VBG (Venous Blood Gas) Recent Labs 07/29/24 1401 PHVEN 7.30* PO2VEN 39 NMB8CNI 20.1* Lactate ( Last 12 hours) 1.3 >> 1.2 Mixed Venous Sat No results for input(s): T3ZNEB7 in the last 168 hours. PA Catheter [...] 0057 07/29/24 1621 PHART 7.44 7.38 7.37 GUA5AEV 29* 34* 36 PO2ART 109* 141* 71* OUZ1BJT 19.4* 19.5* 20.4 VBG (Venous Blood Gas) Recent Labs 07/29/24 1401 PHVEN 7.30* PO2VEN 39 GGE1BDM 20.1* Mixed Venous Sat No results for input(s): V2ITRW1 in the last 168 hours. Microbiology: Microbiology Results (Last 30 days) Procedure Component Value Units Date/Time Blood culture [[id number]] Collected: 07/29/24 1608 Lab Status: In process Specimen: Blood, Venous Updated: 07/29/24 162 Blood culture [[id number]] Collected: 07/29/24 1608 Lab Status: In process Specimen: Blood, Venous Updated: 07/29/24 1615 Imaging: Results for orders placed or performed during the hospital encounter of 07/29/24 XR Chest One View (Exam End: 07/29/2024 2:30 PM) Result Value WORKSTATION ID [id number] Impression 1. No pulmonary edema. 2. No pleural effusion. 3. No pneumothorax. Thank you for letting us participate in the care of this patient. If you are a health care provider and have any questions regarding this report, please contact the number below. For patients who have questions please contact the health career guidance technician that requested your imaging first. Medications Scheduled [...] Patient transferred via air ambulance to [facility] on 07/29 for LHC and [...] Patient transferred via air ambulance to [facility] on 07/29 for LHC and [...] Was transferred via air ambulance to [facility] for further management and [facility] demo nstrated 100% occlusion. No significant RCA, LMCA, or LCX disease. LOW placed in LAD with some residual distal disease meriting placement of overlapping distal stent. TTE showed apical akinesis and inferior hypokinesis with EF 20%. RHC showed elevated filling pressures. Impella placed and P-level 6 at time of transfer to [facility]. CI initially 1.97, improved to 2.2 After impella. Received about 3 L of fluid during procedural course. Patient initially required norepinephrine, epinephrine, and vasopressin for hemodynamic support, which was weaned upon arrival to [facility] to norepinephrine 20 and levo 0.04 (epinephrine [...] (WRVU 4.57) performed by Brandan Mcgovern MD [facility] ENDOSCOPY Significant Family History: Family [...] mouth. Past Week nitroGLYcerin (NITROLINGUAL) 400 mcg/spray [place], Non-Aerosol 1 spray to anus for proctalgia [...] 3.5 guiding catheter and a 3.5 Fr [facility] 20 Mhz using Manual pullback. Imaging [...] atmospheres. A premounted 3.00 x 22 mm Mather Upson (LOW) was deployed with a maximum inflation [...] A premounted 3.00 x 08 mm Jeison Upson (LOW) was deployed with a maximum inflation [...] a limited study performed by a fellow ediphone operator to evaluate for cardiogenic shock with [...] Compared to the overnight study by the ediphone operator fellow the impella position is stable. [...] Patient transferred via air ambulance to [facility] on 07/29 for LHC and [...] PCP: Yoel Artis APRN PCP phone number: [phone] Date of Admission: 07/29/2024 ( Hospital Day 0 days ) Attending:Jay Silverio MD ID: Korey Montoya is a 74 y.o. male w/ PMH of hypertension, HLD, and BPH who presents for chief concern of chest pain after being found to have ST elevations on EKG. Patient transferred via air ambulance to [facility] on 07/29 for LHC and LOW to LAD for 100% occlusion. HPI: Korey Montoya is a 74 y.o. male w/ PMH of hypertension, HLD, and BPH who presents for chief concern of chest pain after being found to have ST elevations on EKG. Patient transferred via air ambulance to [facility] on 07/29 for LHC and [...] Was transferred via air ambulance to [facility] for further management and LHC [...] (WRVU 4.57) performed by Brandan Mcgovern MD [facility] ENDOSCOPY Family History Family History [...] Blood Gas) No results for input(s): PHART, VOX3VXJ, PO2ART, NRV5RPX, LACTATEVEN, YYG5MFJ, PFRATIOART2 in the last 168 hours. VBG (Venous Blood Gas) Recent Labs 07/29/24 1401 PHVEN 7.30* PO2VEN 39 KMZ5UOK 20.1* Mixed Venous Sat No results for input(s): U1YDRQ9 in the last 168 hours. PA Catheter [...] Blood Gas) No results for input(s): PHART, ZHF8JWZ, PO2ART, CBH9TTL, LACTATEVEN, CCP3XQU, PFRATIOART2 in the last 168 hours. VBG (Venous Blood Gas) Recent Labs 07/29/24 1401 PHVEN 7.30* PO2VEN 39 ESN3WOE 20.1* Mixed Venous Sat No results for input(s): F3PHBP0 in the last 168 hours. Microbiology: Microbiology [...] Patient transferred via air ambulance to [facility] on 07/29 for C. Found to have 100% occlusion of LAD for which he underwent LOW to LAD.Otherwise no other significant vessel disease. Fahad is currently hemodynamically tenuous but improving upon admission to [facility], requiring hemodynamic support with norepinephrine and vasopressin at time of admission along with mechanical support with Impella device. Reassuringly, he demonstrates decreasing pressor requirements since admission to [facility], with epinephrine completely weaned. He does demonstrate [...] MD Internal Medicine, PGY-3 Cardiology, [facility] 07/29/24 3:14 PM Cardiology Attending Note I [...] FACC Section of Cardiovascular Medicine [facility] Cook Vegetablepoultry farm supervisor [facility] [employer] [facility] This patient meets or has met [...] the planned procedure. Hand Hygiene: The furniture removalist's assistant did perform hand hygiene prior to arterial [...] ease. Good wave form. Ivan Hernandez MD Cd Reactor Operator Associated attestation - Rolando Yeh MD [...] Fahad was quite active prior to his HI. 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 Given parameters for home exercise. He follows a heart healthy diet and is not overweight. His lipids are wnl. Participation in an outpatient cardiac rehabilitation program at [facility] was discussed. Patient agrees to [...] No Patient is insured through: Primary Insurance: [facility] MEDIC[facility] Payor: [facility]IC[facility] / Plan: [facility] MANAGED MEDICARE COMPLETE / Product Type: [...] Date of Discharge: 08/04/2024 Gaby Wong RN, Pager-[phone] * Initial Assessments - Char Meza, OT - 08/03/2024 10:00 AM EST Occupational Therapy Evaluation Patient profile: Korey Montoya is a 74 y.o. male admitted on 07/29/2024 w/ PMH of hypertension, HLD, and BPH who presents for chief concern of chest pain after being found to have ST elevations onEKG. Patient transferred via air ambulance to [facility] on 07/29 for LHC and LOW to LAD for 100% occlusion. Past Medical History: Diagnosis Date ADHD HLD (hyperlipidemia) HTN (hypertension) Tremor Past Surgical History: Procedure Laterality Date HAND SURGERY PRO COLONOSCOPY, REMV LESN, SNARE N/A 08/30/2023 COLONOSCOPY, POLYPECTOMY, REMOVAL LESION BY SNARE (WRVU 4.57) performed by Brandan Mcgovern MD [facility] ENDOSCOPY Social History: Patient lives with his . Home Setup: 2 NAOMI to a 1 level home. DME: none Baseline ADL/Mobility: Independent with ADLs and IADLs. Enjoys walking. able assist as needed. Precautions/Special Considerations: Full code. Risk for falls. Subjective: I have access to an [employer] weight gym. (Educated to wait for MD [...] evaluation only Total Minutes, Occupational Therapy: 14 ([id number] (evaluation)) 2017 OT Evaluation Code Rationale: Diagnosis [...] and measurable assessment of functional outcome. Pager: [phone] Char Meza OT 08/03/2024 Occupational Therapy Rehabilitation [...] (Interventions Implemented as Appropriate) Flowsheets (Taken 08/01/2024 6238) Outcome Summary: A+O, no pain. NSR. MAP [...] Procedure Note: Patient Name: Korey Montoya : [id number] MR#: [id number] Case Date: 07/31/2024 Information Technology Analyst: Surgeons and Role: * Maldonado Luis MD - Primary * Quinten Charles PA - Physician Digital Media Specialist Preoperative diagnosis: shock, impella Postoperative diagnosis: * same * Procedure(s) performed: Impella removal form right LINE SERVICE SUPERVISOR Access: Right LINE SERVICE SUPERVISOR A time-out was conducted prior to the [...] surrogate would be surrogate decision maker per [place] surrogate decision making law. (Only good for 180 days) Any patient receiving care in [place] must abide by [place] law. The hierarchy for surrogate decision making [...] The agent with financial power of deputy prosecuting attorney or a conservator appointed in accordance [...] in a [place] health care facility (including now)?: No In the past 12 months has the [employer] gas, oil, or water Slide threatened to shut off services in your [...] Home Address confirmed as: Mailing Address: [facility] [address] [facility] [address] Physical Address: [address] [place], [place] Social & Family Supports: All names [...] points: Addiction likely Health/Prescription Coverage: Primary Insurance: [facility] [employer] MEDICARE Payor: [facility] [employer] MEDICARE / [facility] [employer] [facility] COMPLETE / Product Type: *No Product type* / Secondary Insurance: N/A ; Prescription Coverage: Yes Preferred Pharmacy: [address] [address] [place] Status: Patient is a : No Primary Care Provider confirmed: Alexia Mtz, MANAGER TRAFFIC [phone] Patient/Caregiver Goals of Treatment: return home Potential [...] 6:25 PM EST 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 CXR and EKG completed. Impella [...] Cardiac Catheterization Procedure Note: Patient Name: Korey Montyoa : [id number] MR#: [id number] Case Date: 07/29/2024 Information Technology Analyst: Surgeons and Role: * Vahe Marvin MD - Primary * Susannah Watts PA - Physician Digital Media Specialist Preoperative diagnosis: STEMI Postoperative diagnosis: * STEMI, LAD Artery * * Cardiogenic Shock * Procedure(s) performed: [facility] Coronary angiogram Stent insertion coronary IVUS coronary Venous line insert [facility] [place] Colette Catheter Vascular closure device Ventricular assist [...] x 22 mm to 14 deonna JEISON Upson with LIZ 3 flow. Residual distal disease at distal stent, overlapping distal stent was inserted with 3.0 x 8 mm JEISON Upson. Systolic's in the 80's sustained. Patient re [...] AM EST Office Visit Cardiology at [address] [phone] Mushtaq Murphy, MANAGER TRAFFIC Scheduled Orders Name Type Priority Associated Diagnoses [...] S Performing Organization Address City/[facility]/ZIP Co de Phone Number [facility] [place] [address] * Magnesium (08/04/2024 6:08 AM EST) Magnesium 0.85 0.69 - 1.07 mMol/L 08/04/2024 7:07 AM [facility] Blood VENOUS BLOOD SPECIMEN / Unknown Venipuncture / Unknown 08/04/2024 6:08 AM EST 08/04/2024 6:19 AM EST Bridgette Stauffer MD CHEMISTRY ORDERABLES Performing Organization Address City/[facility]/ZIP Co de Phone Number [facility] [place] [address] * Basic Metabolic Panel (08/04/2024 6:08 AM [...] Stauffer MD CHEMISTRY ORDERABLES Performing Organization Address City/State/[facility] Co de Phone Number [facility] [place] [address] * (ABNORMAL) CBC (with Diff) (08/03/2024 5:16 [...] % 9.0 % 08/03/2024 5:29 AM EST [facility] Monocyte Absolute 0.71 0.30 - 0.90 x10(3)/mc L 08/03/2024 5:29 AM [facility] Eos % 1.7 % 08/03/2024 5:29 AM [facility] Eos Absolute 0.13 0.00 - 0.40 x10(3)/mc L 08/03/2024 5:29 AM EST [facility] Basophil % 0.4 % 08/03/2024 5:29 AM [facility] Baso Absolute <0.04 0.00 - 0.10 x10(3)/mc L 08/03/2024 5:29 AM [facility] [...] MD HEMATOLOGY ORDERABLE S [facility] [place] [address] * Magnesium (08/03/2024 5:16 AM EST) Magnesium 0.89 0.69 - 1.07 mMol/L 08/03/2024 5:56 AM EST [facility] Blood VENOUS BLOOD SPECIMEN / Unknown Venipuncture / Unknown 08/03/2024 5:16 AM EST 08/03/2024 5:23 AM EST Bridgette Stauffer MD CHEMISTRY ORDERABLES [facility] [place] [address] * (ABNORMAL) Basic Metabolic Panel (08/03/2024 5:16 [...] - 145 mMol/L 08/03/2024 5:56 AM [facility] Potassium 4.5 3.5 - 5.0 [...] Organization Address [facility] Co de Phone Number [facility] [place] [address] * POC, GLUCOSE (08/02/2024 7:47 AM EST) [facility] Glucometer, POC 89 65 - 199 mg/dL 08/02/2024 7:47 AM EST [facility] Comment:Supplemental ranges: <140 mg/dL before meals <180 mg/dL all other times of the day. Blood CAPILLARY BLOOD / Unknown 08/02/2024 7:47 AM EST 08/02/2024 7:47 AM EST Krystal Parker MD POINT OF CARE TEST O RDERABLES Performing Organization Address [facility] Co de Phone Number [facility] [place] [address] * (ABNORMAL) CBC (with Diff) (08/02/2024 4:20 AM EST) [facility] White Blood Cell 8.51 4.00 - 9.50 [...] % 0.4 % 08/02/2024 4:50 AM EST [facility] Baso Absolute <0.04 0.00 - 0.10 x10(3)/mc L 08/02/2024 4:50 AM [facility] Immature Gran % 0.4 % 4:50 AM EST [facility] Immature Gran Absolute <0.04 0.00 - 0.04 x10(3)/mc L 08/02/2024 4:50 AM [facility] Blood VENOUS BLOOD SPECIMEN / Unknown Venipuncture / Unknown 08/02/2024 4:20 AM EST 08/02/2024 4:37 AM EST Bridgette Stauffer MD HEMATOLOGY ORDERABLE S Performing Organization Address City/[facility]/ZIP Co de Phone Number [facility] [place] [address] * Magnesium (08/02/2024 4:20 AM EST) Pathologist [facility] Magnesium 0.79 0.69 - 1.07 mMol/L 08/02/2024 5:06 AM [facility] Blood VENOUS BLOOD SPECIMEN / Unknown Venipuncture / Unknown 08/02/2024 4:20 AM EST 08/02/2024 4:37 AM EST Bridgette Stauffer MD CHEMISTRY ORDERABLES [facility] [place] [address] * (ABNORMAL) Basic Metabolic Panel (08/02/2024 4:20 [...] - 15 mMol/L 08/02/2024 5:06 AM [facility] Calcium 8.1(L) 8.5 - 10.5 mg/dL 08/02/2024 5:06 AM [facility] Est Glomerular Filtration Rate - Male 91 mL/min/1. 73 m?? 08/02/2024 5:06 AM [facility] Comment: [...] Stauffer MD CHEMISTRY ORDERABLES [facility] [place] [address] * Potassium (08/01/2024 8:39 PM EST) Potassium 4.0 3.5 - 5.0 mMol/L 08/01/2024 9:21 PM EST [facility] Blood VENOUS BLOOD SPECIMEN / Unknown Venipuncture / Unknown 08/01/2024 8:39 PM EST 08/01/2024 8:51 PM EST Jay Silverio MD CHEMISTRY ORDERABL ES Performing Organization Address City/[facility]/ZIP Co de Phone Number [facility] [place] [address] * POC, GLUCOSE (08/01/2024 8:35 PM EST) Glucometer, POC 112 65 - 199 mg/dL 08/01/2024 8:36 PM EST [facility] Comment:Supplemental ranges: <140 mg/dL before meals <180 mg/dL all other times of the day. Blood CAPILLARY BLOOD / Unknown 08/01/2024 8:35 PM EST 08/01/2024 8:36 PM EST Krystal Parker MD POINT OF CARE TEST O RDKAY Performing Organization Address [facility] Co de Phone Number [facility] [place] [address] * POC, GLUCOSE (08/01/2024 4:55 PM EST) Glucometer, POC 99 65 - 199 mg/dL 08/01/2024 4:56 PM EST [facility] Comment:Supplemental ranges: <140 mg/dL before meals <180 mg/dL all other times of the day. Blood CAPILLARY BLOOD / Unknown 08/01/2024 4:55 PM EST 08/01/2024 4:56 PM EST Krystal Parker MD POINT OF CARE TEST O JOSH Performing Organization Address City/[facility]/ZIP Co de Phone Number [facility] [place] [address] * POC, GLUCOSE (08/01/2024 12:42 PM EST) Glucometer, POC 130 65 - 199 mg/dL 08/01/2024 12:43 PM EST [facility] Comment:Supplemental ranges: <140 mg/dL before meals <180 mg/dL all other times of the day. Blood CAPILLARY BLOOD / Unknown 08/01/2024 12:42 PM EST 08/01/2024 12:43 PM EST Krystal Parker MD POINT OF CARE TEST O JOSH [facility] [place] [address] * (ABNORMAL) Cooximetry, POC (08/01/2024 10:45 AM [...] CARE TEST O RDERASHAY [facility] [place] [address] * Potassium (08/01/2024 8:20 AM EST) [facility] Potassium 4.0 3.5 - 5.0 mMol/L 08/01/2024 10:17 AM EST [facility] Blood ARTERIAL BLOOD / Unknown Venipuncture / Unknown 08/01/2024 8:20 AM EST 08/01/2024 8:30 AM EST Jay Silverio MD CHEMISTRY ORDERABL ES Performing Organization Address City/[facility]/ZIP Co de Phone Number [facility] [place] [address] * POC, GLUCOSE (08/01/2024 7:44 AM EST) [facility] Glucometer, POC 86 65 - 199 mg/dL 08/01/2024 7:44 AM EST [facility] Comment:Supplemental ranges: <140 mg/dL before meals <180 mg/dL all other times of the day. Blood CAPILLARY BLOOD / Unknown 08/01/2024 7:44 AM EST 08/01/2024 7:44 AM EST Krystal Parker MD POINT OF CARE TEST O RDERABLES [facility] [place] [address] * (ABNORMAL) CBC (with Diff) (08/01/2024 4:18 AM EST) [facility] White Blood Cell 8.51 4.00 - 9.50 [...] MD HEMATOLOGY ORDERABLE S [facility] [place] [address] * Magnesium (08/01/2024 4:18 AM EST) Magnesium 0.74 0.69 - 1.07 mMol/L 08/01/2024 5:00 AM EST [facility] Blood VENOUS BLOOD SPECIMEN / Unknown Venipuncture / Unknown 08/01/2024 4:18 AM EST 08/01/2024 4:29 AM EST Bridgette Stauffer MD CHEMISTRY ORDERABLES [facility] [place] [address] * (ABNORMAL) Basic Metabolic Panel (08/01/2024 4:18 [...] Organization Address [facility] de Phone Number [facility] [place] [address] * POC, GLUCOSE (07/31/2024 8:41 PM EST) [facility] Glucometer, POC 73 65 - 199 mg/dL 07/31/2024 8:41 PM EST [facility] Comment:Supplemental ranges: <140 mg/dL before meals <180 mg/dL all other times of the day. Blood CAPILLARY BLOOD / Unknown 07/31/2024 8:41 PM EST 07/31/2024 8:41 PM EST Krystal Parker MD POINT OF CARE TEST O RDERABLES Performing Organization Address [facility] Phone Number [facility] [place] [phone] * CARDIAC CATHETERIZATION (07/31/2024 5:53 PM EST) Anatomical Region Laterality Modality Other Narrative 08/01/2024 12:37 PM EST ?[facility] ? Cardiac Catheterization/Intervention Report ? Patient Name: Korey Montoya ? Procedure Date: 07/31/2024 ? A #: [id number] ? Primary Physician: Maldonado Luis ? Case #: [id number] ? File Name: [id number] ? Catheterization Order Number: [id number] ? [facility] ? Final Report [place], [place] ? Patient Name: ? Korey P. Montoya ?ID#: ?[id number] ? : ?1950 ? Procedure Date: ? [...] ? Comments: ?Impella removed from the right LINE SERVICE SUPERVISOR with deployment of Perclose and ?Angioseal. ??Good [...] Procedure Note Maldonado Luis MD - 08/01/2024 [facility] Cardiac Catheterization/Intervention Report Patient Name: Korey MontoyaToby Procedure Date: 07/31/2024 A #: [id number] Primary Physician: Maldonado Luis Case #: [id number] File Name: [id number] Catheterization Order Number: [id number] [facility] FinalReport [place], [place] Patient Name: Korey Montoya ID#:[id number] :1950 Procedure Date: July 31, 2024 Case [...] as ASA Class IV. The [facility] clinical frailtyscale is 4: Vulnerable. [...] procedures. Comments: Impella removed from the right LINE SERVICE SUPERVISOR with deployment of Perclose and Angioseal. Good [...] CARE TEST O RDERABLES [facility] [place] [id number] * (ABNORMAL) Blood Gas, Arterial POC (07/31/2024 8:29 AM EST) [facility] pH, Arterial 7.48(H) 7.35 - 7.45 [...] CARE TEST O RDERABLES [facility] [place] [address] * POC, GLUCOSE (07/31/2024 7:47 AM EST) Pathologist [facility] Glucometer, POC 82 65 - 199 mg/dL 07/31/2024 7:53 AM [facility] Comment:Supplemental ranges: <140 mg/dL before meals <180 mg/dL all other times of the day. Blood CAPILLARY BLOOD / Unknown 07/31/2024 7:47 AM EST 07/31/2024 7:53 AM EST Krystal Parker MD POINT OF CARE TEST O RDERABLES [facility] [place] [address] * (ABNORMAL) CBC (with Diff) (07/31/2024 1:08 AM EST) [facility] White Blood Cell 10.25(H) 4.00 - 9.50 [...] MD HEMATOLOGY ORDERABLE S Performing Organization Address [facility] Co de Phone Number [facility] [place] [address] * Magnesium (07/31/2024 1:08 AM EST) Pathologist [facility] Magnesium 0.89 0.69 - 1.07 mMol/L 07/31/2024 1:46 AM [facility] Blood VENOUS BLOOD SPECIMEN / Unknown Venipuncture / Unknown 07/31/2024 1:08 AM EST 07/31/2024 1:18 AM EST Bridgette Stauffer MD CHEMISTRY ORDERABLES Performing Organization Address City/[facility] Co de Phone Number [facility] [place] [address] * (ABNORMAL) Basic Metabolic Panel (07/31/2024 1:08 AM EST) Glucose 97 65 - 199 mg/dL 07/31/2024 1:46 AM [facility] Comment:Glucose Concentratio n >=200 mg/dL plus symptoms is consistent with Diabetes Mellitus. Blood Urea Nitrogen 11 10 - 20 mg/dL 07/31/2024 1:46 AM [facility] Creatinine 0.96 0.80 - 1.50 mg/dL 07/31/2024 1:46 AM [facility] Sodium 140 135 - 145 mMol/L 07/31/2024 1:46 AM [facility] Potassium 4.1 3.5 - 5.0 mMol/L 07/31/2024 1:46 AM EST [facility] Chloride 110(H) 98 - 107 mMol/L 07/31/2024 1:46 AM [facility] Carbon Dioxide 24 22 - 31 mMol/L 07/31/2024 1:46 AM [facility] Anion Gap 6 5 - 15 mMol/L 07/31/2024 1:46 AM [facility] Calcium [...] Stauffer MD CHEMISTRY ORDERABLES [facility] [place] [address] * (ABNORMAL) Hepatic Function Panel (07/31/2024 1:08 [...] Parker MD CHEMISTRY ORDERABLES Performing Organization Address City/[facility] Co de Phone Number [facility] [place] [address] * POC, GLUCOSE (07/30/2024 8:03 PM EST) Glucometer, POC 86 65 - 199 mg/dL 07/30/2024 8:03 PM [facility] Comment:Supplemental ranges: <140 mg/dL before meals <180 mg/dL all other times of the day. Blood CAPILLARY BLOOD / Unknown 07/30/2024 8:03 PM EST 07/30/2024 8:03 PM EST Krystal Parker MD POINT OF CARE TEST O RDERABLES Performing Organization Address City/[facility]/ZIP Co de Phone Number [facility] [place] [address] * Potassium (07/30/2024 8:03 PM EST) Potassium 3.8 3.5 - 5.0 mMol/L 07/30/2024 9:13 PM EST [facility] Blood VENOUS BLOOD SPECIMEN / Unknown Venipuncture / Unknown 07/30/2024 8:03 PM EST 07/30/2024 8:22 PM EST Jay Silverio MD CHEMISTRY ORDERABL ES Performing Organization Address [facility] Co de Phone Number [facility] [place] [address] * POC, GLUCOSE (07/30/2024 6:23 PM EST) [...] Organization Address [facility] Co de Phone Number [facility] [place] [address] * POC, GLUCOSE (07/30/2024 5:08 PM EST) [...] Organization Address [facility] Co de Phone Number [facility] [place] [address] * (ABNORMAL) Phosphorus (07/30/2024 3:08 PM EST) Phosphorus 2.1(L) 2.5 - 4.5 mg/dL 07/30/2024 3:58 PM EST [facility] Blood VENOUS BLOOD SPECIMEN / Unknown Venipuncture / Unknown 07/30/2024 3:08 PM EST 07/30/2024 3:12 PM EST Jay Silverio MD CHEMISTRY ORDERABL ES Performing Organization Address City/[facility]/ZIP Co de Phone Number [facility] [place] [address] * Magnesium (07/30/2024 3:08 PM EST) Magnesium 0.90 0.69 - 1.07 mMol/L 07/30/2024 3:58 PM EST [facility] Blood VENOUS BLOOD SPECIMEN / Unknown Venipuncture / Unknown 07/30/2024 3:08 PM EST 07/30/2024 3:12 PM EST Jay Silverio MD CHEMISTRY ORDERABL ES Performing Organization Address City/[facility]/ZIP Co de Phone Number [facility] [place] [address] * (ABNORMAL) Basic Metabolic Panel (07/30/2024 3:08 [...] - 107 mMol/L 07/30/2024 4:17 PM EST [facility] Carbon Dioxide 21(L) 22 - [...] MD CHEMISTRY ORDERABL ES Performing Organization Address City/State/[facility] Co de Phone Number [facility] [place] [address] * ECHO LMTD W CONTRAST W LMTD SPEC DOPP COLOR DOPP (07/30/2024 11:42 AM EST) Anatomical Region Laterality Modality Cardiac Other 07/30/2024 10:2 2 AM EST Narrative 07/30/2024 12:34 PM EST [address] [place] [address] ? Echocardiogram Report Name: KOREY MONTOYA Kyrie ? Study Date: 07/30/2024 10:22 AMBP: 124/66 mmHg : 1950 ? Height: 168 cm ? Account: [id number] Age: 74 yrs ? Weight: 65 kg Gender: Male ?BSA: 1.7 m2 Ordering Physician: Jay Silverio MD Referring Physician: CHAPARRO FERRERA Performed By: OMERO Millan Reason For Study: ST elevation myocardial infarction involving left anterior descending (LAD) coronary artery Interpreting Fellow: Ivan Hernandez. Exam Location: [facility]. Interpretation Summary Left ventricle is severely dilated. [...] Compared to the overnight study by the ediphone operator fellow the impella position is stable. 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 Procedure Limited - 38210. Image enhancement Definity was used for both [...] Procedure Note Kathleen Banda MD - 07/30/[address] [place], [place] [id number] Echocardiogram Report Name: LARA KOREY Kyrie Study Date: 410:22 AMBP: 124/66 mmHg : 1950 Height: 168 cm Account: [id number] Age: 74 yrs Weight: 65 kg Gender: Male BSA: 1.7 m2 Ordering Physician: Jay Silverio MD Referring Physician: CHAPARRO FERRERA Performed By: OMERO Millan Reason For Study: ST elevation myocardial infarction involving leftanterior descending (LAD) coronary artery Interpreting Fellow: Ivan Hernandez. Exam Location: [facility]. Interpretation Summary Left ventricle is severely dilated. [...] Compared to the overnight study by the ediphone operator fellow the impella positionis stable. The global left ventricular systolic function has improvedpredominantly via recruitment outside the LAD territory which remains akinetic. Procedure Limited - 48434. Image enhancement Definity was used for both [...] Dyskinetic 3-5moderate 5 - 6-14large Aneurysmal 15-16diffuse aJy Silverio MD ECHO ORDERABLES * POC, GLUCOSE (07/30/2024 11:17 AM EST) [facility] Glucometer, POC 97 65 - 199 mg/dL 07/30/2024 11:17 AM EST [facility] Comment:Supplemental ranges: <140 mg/dL before meals <180 mg/dL all other times of the day. Blood CAPILLARY BLOOD / Unknown 07/30/2024 11:17 AM EST 07/30/2024 11:17 AM EST Jay Silverio MD POINT OF CARE TEST ORDERABLES Performing Organization Address City/State/[facility] Co de Phone Number [facility] [place] [address] * (ABNORMAL) Blood Gas, Arterial POC (07/30/2024 8:16 AM EST) [facility] pH, Arterial 7.44 7.35 - 7.45 [...] - 145 mmol/L 07/30/2024 8:17 AM [facility] Potassium, Arterial 3.9 3.5 - [...] OF CARE TEST ORDERABLES [facility] [place] [address] * (ABNORMAL) Troponin - Single (07/30/2024 8:09 [...] troponin value can be found in the [facility] Test Catalog Troponin - [email or web address] Reference: Fourth Capac Definition of Myocardial Infarction. Journal of the [employer] College [employer] 2018;72:3694-5570 Blood VENOUS BLOOD SPECIMEN / Unknown Venipuncture / Unknown 07/30/2024 8:09 AM EST 07/30/2024 8:26 AM EST Jay Silverio MD CHEMISTRY ORDERABL ES [facility] [place] [address] * POC, GLUCOSE (07/30/2024 7:40 AM EST) Pathologist [facility] Glucometer, POC 111 65 - 199 mg/dL 07/30/2024 7:40 AM EST [facility] Comment:Supplemental ranges: <140 mg/dL before meals <180 mg/dL all other times of the day. Blood CAPILLARY BLOOD / Unknown 07/30/2024 7:40 AM EST 07/30/2024 7:40 AM EST Jay Silverio MD POINT OF CARE TEST ORDERABLES [facility] [place] [address] * (ABNORMAL) CBC (with Diff) (07/30/2024 2:11 AM EST) White Blood Cell 11.25(H) 4.00 - 9.50 x10(3)/mc L 07/30/2024 2:33 AM [facility] Red Blood Cell 4.50(L) 4.58 [...] 3.20 x10(3)/mc L 07/30/2024 2:33 AM [facility] Monocyte % 5.4 % 07/30/2024 [...] MD HEMATOLOGY ORDERABLE S [facility] [place] [address] * Magnesium (07/30/2024 2:11 AM EST) Magnesium 1.01 0.69 - 1.07 mMol/L 07/30/2024 2:51 AM [facility] Blood VENOUS BLOOD SPECIMEN / Unknown Venipuncture / Unknown 07/30/2024 2:11 AM EST 07/30/2024 2:22 AM EST Bridgette Stauffer MD CHEMISTRY ORDERABLES Performing Organization Address City/[facility] Co de Phone Number [facility] [place] [address] * (ABNORMAL) Basic Metabolic Panel (07/30/2024 2:11 [...] Stauffer MD CHEMISTRY ORDERABLES [facility] [place] [address] * (ABNORMAL) Cooximetry, POC (07/30/2024 1:00 AM EST) pO2, Coox 28 mmHg 07/30/2024 1:03 AM EST [facility] Hemoglobin, Coox 12.7(L) 13.7 - 16.5 g/dL 07/30/2024 1:03 AM EST [facility] Oxyhemoglobin, Coox 54.9 % 07/30/2024 1:03 AM EST [facility] Carboxyhemoglo bin, Coox 1.0 % 07/30/2024 1:03 AM EST [facility] Comment: Nonsmokers: 0.5-1.5% COHB ?? Smokers: Variable ??but usually less than 10% ?? Toxic: 20-30% COHB ?? Lethal: Greater than 60% COHB Methemoglobin, Coox 0.0 <=1.5 % 07/30/2024 1:03 AM [facility] Blood (Mixed Venous) 07/30/2024 1:00 AM EST 07/30/2024 1:03 AM EST Jay Silverio MD POINT OF CARE TEST ORDERABLES [facility] [place] [address] * (ABNORMAL) Blood Gas, Arterial POC (07/30/2024 [...] Rate 2.0 L/min 07/30/2024 12:58 AM [facility] IONIZED CALCIUM, ARTERIAL 1.12(L) 1.15 - 1.33 mmol/L 07/30/2024 12:58 AM [facility] Glucose, Arterial 184 65 - 199 mg/dL 07/30/2024 12:58 AM [facility] Comment:Glucose Concentratio n >=200 mg/dL plus symptoms is consistent with Diabetes Mellitus. Blood ARTERIAL BLOOD / Unknown 07/30/2024 12:57 AM EST 07/30/2024 12:58 AM EST Jay Silverio MD POINT OF CARE TEST ORDERABLES [facility] [place] [address] * (ABNORMAL) Troponin - Single (07/29/2024 10:31 [...] troponin value can be found in the [facility] Test Catalog Troponin - https://[email or web address] [email or web address].[email or web address]/catalogs/565/files/33086 Reference: Fourth Capac Definition of Myocardial Infarction. Journal of the British College of Cardiology 2018;72:8292-1565 Blood VENOUS BLOOD SPECIMEN / Unknown Venipuncture / Unknown 07/29/2024 10:31 PM EST 07/29/2024 10:36 PM EST Yrn Ward MD CHEMISTRY ORDERABL ES Performing Organization Address City/[facility]/ZIP Co de Phone Number [facility] [place] [address] * Potassium (07/29/2024 8:11 PM EST) Potassium 4.1 3.5 - 5.0 mMol/L 07/29/2024 8:52 PM EST [facility] Blood VENOUS BLOOD SPECIMEN / Unknown Venipuncture / Unknown 07/29/2024 8:11 PM EST 07/29/2024 8:16 PM EST Jay Silverio MD CHEMISTRY ORDERABL ES [facility] [place] [address] * (ABNORMAL) Troponin - Single (07/29/2024 8:11 [...] troponin value can be found in the [facility] Test Catalog Troponin - https://[facility]-.testcatalog.org/catalogs/565/files/63943 Reference: Fourth Capac Definition of Myocardial Infarction. Journal of the [employer] College of Cardiology 2018;72:6153-7677 Blood VENOUS BLOOD SPECIMEN / Unknown Venipuncture / Unknown 07/29/2024 8:11 PM EST 07/29/2024 8:16 PM EST Jay Silverio MD CHEMISTRY ORDERABL ES Performing Organization Address City/State/[facility] Co de Phone Number [facility] [place] [address] * (ABNORMAL) Phosphorus (07/29/2024 8:11 PM EST) Phosphorus 2.1(L) 2.5 - 4.5 mg/dL 07/29/2024 8:52 PM EST [facility] Blood VENOUS BLOOD SPECIMEN / Unknown Venipuncture / Unknown 07/29/2024 8:11 PM EST 07/29/2024 8:16 PM EST Jay Silverio MD CHEMISTRY ORDERABL ES Performing Organization Address [facility] Co de Phone Number [facility] [place] [address] * POC, GLUCOSE (07/29/2024 8:09 PM EST) Glucometer, POC 142 65 - 199 mg/dL 07/29/2024 8:09 PM EST [facility] Comment:Supplemental ranges: <140 mg/dL before meals <180 mg/dL all other times of the day. Blood CAPILLARY BLOOD / Unknown 07/29/2024 8:09 PM EST 07/29/2024 8:09 PM EST Jay Silverio MD POINT OF CARE TEST ORDERABLES Performing Organization Address [facility] Co de Phone Number [facility] [place] [address] * ABORH RECHECK (07/29/2024 6:43 PM EST) Pathologist [facility] ABORH Recheck AB POSITIVE 07/29/2024 10:13 PM EST [facility] Blood VENOUS BLOOD SPECIMEN / Unknown Venipuncture / Unknown 07/29/2024 6:43 PM EST 07/29/2024 7:15 PM EST Jay Silverio MD BLOOD BANK LAB ORD ERABLES Performing Organization Address [facility] Co de Phone Number [facility] [place] [place] [address] * POC, GLUCOSE (07/29/2024 5:57 PM EST) Glucometer, POC 166 65 - 199 mg/dL 07/29/2024 5:57 PM EST [facility] Comment:Supplemental ranges: <140 mg/dL before meals <180 mg/dL all other times of the day. Blood CAPILLARY BLOOD / Unknown 07/29/2024 5:57 PM EST 07/29/2024 5:57 PM EST Jay Silverio MD POINT OF CARE TEST ORDERABLES Performing Organization Address City/[facility]/ZIP Co de Phone Number [facility] [place] [address] * Type and screen ([facility]JONG/MAGALIE) (07/29/2024 5:56 PM EST) [facility] ABORH Type AB POSITIVE 07/29/2024 9:44 PM EST [facility] PATIENT HISTORY Not Found 07/29/2024 9:44 PM EST [facility] Expires at [id number] on: 08/01/2024 07/29/2024 9:44 PM EST [facility] ANTIBODY SCREEN AUTOMATED Negative 07/29/2024 9:44 PM EST [facility] T&S only valid at [facility] 07/29/2024 9:44 PM EST [facility] Blood VENOUS BLOOD SPECIMEN / Unknown Venipuncture / Unknown 07/29/2024 5:56 PM EST 07/29/2024 6:07 PM EST Narrative [facility] - 07/29/2024 9:44 PM EST This Type and Screen result is only valid at the [facility] Jay Silverio MD BLOOD BANK LAB ORD ERABLES Performing Organization Address City/[facility] Co de Phone Number [facility] [place] [place] [address] * (ABNORMAL) Troponin - Single (07/29/2024 4:52 PM EST) [facility] Troponin-T, High Sensitivity >10,000(H ) <=22 ng/L [...] troponin value can be found in the [facility] Test Catalog Troponin - https://[email or web address]-.testcatalog.org/catalogs/565/files/01416 Reference: Fourth Capac Definition of Myocardial Infarction. Journal of the British College of Cardiology 2018;72:0807-2202 Blood VENOUS BLOOD SPECIMEN / Unknown Venipuncture / Unknown 07/29/2024 4:52 PM EST 07/29/2024 4:57 PM EST Jay Silverio MD CHEMISTRY ORDERABL ES Performing Organization Address [facility]/ZIP Co de Phone Number [facility] [place] [address] * EKG 12 Lead (07/29/2024 4:21 PM EST) Ventricular rate 72 BPM MUSE SYSTEM Atrial Rate 72 BPM MUSE SYSTEM P-R Interval 168 ms MUSE SYSTEM QRS Duration 82 ms MUSE SYSTEM Q-T Interval 392 ms MUSE SYSTEM QTC Calculated (Bezet) 429 ms MUSE SYSTEM Calculated P [place] 71 degrees MUSE SYSTEM Calculated R [place] 77 degrees MUSE SYSTEM Calculated T [place] 28 degrees MUSE SYSTEM INTERPRETATION Sinus rhythm with Premature supraventricular complexes and Occasional Premature ventricular complexes Low voltage QRS 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) Lateral injury pattern ACUTE HI / STEMI Abnormal ECG When compared with [...] 7.35 - 7.45 07/29/2024 4:22 PM [facility] PCO2, Arterial 36 35 - 45 mmHg 07/29/2024 4:22 PM [facility] PO2, Arterial 71(L) 85 - 104 mmHg 07/29/2024 4:22 PM [facility] Bicarbonate, Arterial 20.4 20.0 - 26.0 mmol/L 07/29/2024 4:22 PM [facility] Base Excess, Arterial -4.8(L) -3.0 [...] - 2.2 mmol/L 07/29/2024 4:22 PM EST [facility] Fraction of Inspired Oxygen 21 [...] ORDERABLES Performing Organization Address City/[facility]/ZIP Co de Phone Number [facility] [place] [address] * POC, GLUCOSE (07/29/2024 4:19 PM EST) Glucometer, POC 185 65 - 199 mg/dL 07/29/2024 4:19 PM [facility] Comment:Supplemental ranges: <140 mg/dL before meals <180 mg/dL all other times of the day. Blood CAPILLARY BLOOD / Unknown 07/29/2024 4:19 PM EST 07/29/2024 4:19 PM EST Jay Silverio MD POINT OF CARE TEST ORDERABLES [facility] [place] [address] * Blood culture (07/29/2024 4:08 PM EST) Blood Culture No growth at 120 hours 08/03/2024 5:01 PM EST [facility] Blood VENOUS BLOOD SPECIMEN / Unknown Venipuncture / Unknown 07/29/2024 4:08 PM EST 07/29/2024 4:15 PM EST Jay Silverio MD MICROBIOLOGY - BLO OD ORDERABLES Performing Organization Address [facility] Co de Phone Number [facility] [place] [address] * Blood culture (07/29/2024 4:08 PM EST) Blood Culture No growth at 120 hours 08/03/2024 5:01 PM EST [facility] Blood VENOUS BLOOD SPECIMEN / Unknown Venipuncture / Unknown 07/29/2024 4:08 PM EST 07/29/2024 4:26 PM EST Jay Silverio MD MICROBIOLOGY - BLO OD ORDERABLES Performing Organization Address [facility] de Phone Number [facility] [place] [phone] * XR Chest One View (07/29/2024 2:30 PM EST) WORKSTATION ID [id number] RAD Anatomical Region Laterality Modality Chest N/A [...] * (ABNORMAL) APTT (07/29/2024 2:03 PM EST) [facility] Partial Thromboplastin Time >160(HHH) 25 - 37 sec 07/29/2024 2:56 PM EST [facility] Blood VENOUS BLOOD SPECIMEN / Unknown Venipuncture / Unknown 07/29/2024 2:03 PM EST 07/29/2024 2:13 PM EST Vahe Marvin MD HEMATOLOGY ORDERABLE S Performing Organization Address City/[facility]/ZIP Co de Phone Number [facility] [place] [address] * (ABNORMAL) Prothrombin Time (07/29/2024 2:03 PM [...] MD HEMATOLOGY ORDERABLE S Performing Organization Address [facility] Co de Phone Number [facility] [place] [address] * CRP, acute inflammation (07/29/2024 2:03 PM EST) C-Reactive Protein <3.0 <=4.9 mg/L 07/29/2024 2:52 PM EST [facility] Blood VENOUS BLOOD SPECIMEN / Unknown Venipuncture / Unknown 07/29/2024 2:03 PM EST 07/29/2024 2:14 PM EST Vahe Marvin MD CHEMISTRY ORDERABLES [facility] [place] [address] * Lipid Panel (Reflex Direct LDL) (07/29/2024 [...] Marvin MD CHEMISTRY ORDERABLES [facility] [place] [address] * TSH Tama (07/29/2024 2:03 PM EST) Thyroid Stimulating Hormone 0.70 0.27 - 4.20 mcIU/mL 07/29/2024 2:52 PM EST [facility] Blood VENOUS BLOOD SPECIMEN / Unknown Venipuncture / Unknown 07/29/2024 2:03 PM EST 07/29/2024 2:14 PM EST Vahe Marvin MD CHEMISTRY ORDERABLES [facility] [place] [address] * Hemoglobin A1c (07/29/2024 2:03 PM EST) Pathologist [facility] Hemoglobin A1c 5.3 4.3 - 5.6 [...] into estimated average glucose values. ??Diabetes Care 2008:31(8):1485-1688. Additional resources are available on the ADA website (diabetes.org). Vahe Marvin MD CHEMISTRY ORDERABLES [facility] [place] [address] * (ABNORMAL) CBC (with Diff) (07/29/2024 2:03 [...] 3.20 x10(3)/mc L 07/29/2024 2:18 PM [facility] Monocyte % 2.9 % 07/29/2024 2:18 PM [facility] Monocyte Absolute 0.56 0.30 - 0.90 x10(3)/mc L 07/29/2024 2:18 PM [facility] Eos % 0.0 % 07/29/2024 2:18 PM [facility] Eos Absolute <0.04 0.00 - 0.40 x10(3)/mc L 07/29/2024 2:18 PM [facility] Basophil % 0.3 % 07/29/2024 2:18 PM [facility] Baso Absolute 0.05 0.00 - 0.10 x10(3)/mc L 07/29/2024 2:18 PM [facility] Immature Gran % 0.5 % 2:18 PM [facility] Immature Gran Absolute 0.09(H) 0.00 - 0.04 x10(3)/mc L 07/29/2024 2:18 PM [facility] Blood VENOUS BLOOD SPECIMEN / Unknown Venipuncture / Unknown 07/29/2024 2:03 PM EST 07/29/2024 2:13 PM EST Vahe Marvin MD HEMATOLOGY ORDERABLE S [facility] [place] [address] * Phosphorus (07/29/2024 2:03 PM EST) Phosphorus 2.5 2.5 - 4.5 mg/dL 07/29/2024 2:52 PM EST [facility] Blood VENOUS BLOOD SPECIMEN / Unknown Venipuncture / Unknown 07/29/2024 2:03 PM EST 07/29/2024 2:14 PM EST Vahe Marvin MD CHEMISTRY ORDERABLES Performing Organization Address City/[facility]/ZIP Co de Phone Number [facility] [place] [address] * Magnesium (07/29/2024 2:03 PM EST) Pathologist [facility] Magnesium 0.70 0.69 - 1.07 mMol/L 07/29/2024 2:52 PM EST [facility] Blood VENOUS BLOOD SPECIMEN / Unknown Venipuncture / Unknown 07/29/2024 2:03 PM EST 07/29/2024 2:14 PM EST Vahe Marvin MD CHEMISTRY ORDERABLES Performing Organization Address City/[facility]/ZIP Co de Phone Number [facility] [place] [address] * (ABNORMAL) Comprehensive metabolic panel (07/29/2024 2:03 [...] Marvin MD CHEMISTRY ORDERABLES [facility] [place] [address] * (ABNORMAL) Troponin - Single (07/29/2024 2:03 [...] troponin value can be found in the [facility] Test Catalog Troponin - https://[email or web address]-.testcatalog.org/catalogs/565/files/59193 Reference: Fourth Capac Definition of Myocardial Infarction. Journal of the British College of Cardiology 2018;72:7566-0472 Blood VENOUS BLOOD SPECIMEN / Unknown Venipuncture / Unknown 07/29/2024 2:03 PM EST 07/29/2024 2:14 PM EST Vahe Mavrin MD CHEMISTRY ORDERABLES [facility] [place] [address] * (ABNORMAL) Blood Gas, Venous POC (07/29/2024 [...] [facility] Co de Phone Number [facility] [place] [address] * CARDIAC CATHETERIZATION (07/29/2024 1:20 PM EST) Anatomical Region Laterality Modality Other Narrative 07/29/2024 2:02 PM EST ?[facility] ? Cardiac Catheterization/Intervention Report ? Patient Name: Korey Montoya Driss ? Procedure Date: 07/29/2024 ? A #: [id number] ? Primary Physician: Vahe Marvin ? Case #: [id number] ? File Name: [id number] ? Catheterization Order Number: [id number] ? [facility] ? Final Report [place], [place] ? Patient Name: ? Korey P. Montoya ?ID#: ?[id number] ? : ?1950 ? Procedure Date: ? [...] was Emergent. The indication for ?the laboratory veterinarian visit is ACS less than or equal [...] 3.5 guiding catheter and a 3.5 Fr [facility] [address] ??20 Mhz using ?Manual pullback. ??Imaging [...] A premounted 3.00 x 22 mm Jeison Upson (LOW) was deployed ? with a maximum [...] atmospheres. ??A premounted 3.00 x 08 mm Mather Upson (LOW) ? was deployed with a maximum [...] administered prior to arrival in the laboratory veterinarian. ?Recommended anti-platelet/anti-thrombotic regimen: ?Start aspirin 81 mg daily now and continue for 12 months then stop. ?Start clopidogrel 75 mg daily now and continue for indefinitely. ?These recommendations are made at the time of the intervention. Patient ?and provider preferences or a changing clinical situation may require ?modification of this regimen. Consult [facility]ventional [facility] for ?questions. ?The [...] able ?to start weaning his inotropes/vasopressors. A [place] Colette catheter was ?placed demonstrating improvement in his hemodynamics and the impella site ?was perclosed and hemostatic gauze was applied with excellent result. ?WIll transfer to the [facility] for further management. ?The attending physician was present for the entire procedure. ?Dr. Vahe Marvin M.D. was present during the moderate sedation ?intraservice time as documented by the sedation nurse. ??Case time = 01:26. ?Dr. Vahe Marvin M.D. performed the coronary angiography, left heart ?catheterization, IVUS # coronary, stent insertion-coronary, oximetry, ABG, ?transthoracic echo , ventricular assist device insertion, right heart ?catheterization, [place] (flow directed cath) insertion, access site ?angiography, vascular ultrasound, venous line / sheath insert and vascular ?closure device. ? Vahe Marvin M.D. ? Electronically Signed by: Vahe Marvin M.D. ? Report Finalized: 07/29/2024 ??13:55 ? Report Last Ammended: 09/20/2024 ??15:21 ? Procedure Note Vahe Marvin MD - 09/20/2024 [facility] Cardiac Catheterization/Intervention Report Patient Name: Korey Montoya Procedure Date: 07/29/2024 A #: [id number] Primary Physician: Vahe Marvin Case #: [id number] File Name: [id number] Catheterization Order Number: [id number] [facility] FinalReport [place], [place] Patient Name: Korey Montoya ID#:[id number] :1950 Procedure Date: July 29, 2024 Case [...] as ASA Class IV. The [facility] clinical frailtyscale is 4: Vulnerable. Diagnostic Tests: Electrocardiography: EKG was assessed by ECG. EKG was Abnormal. EKG showed STDeviation >= 0.5 mm. Medications Prior to Procedure: Angiotensin II Receptor Elvis and Statin. Indications for Diagnostic Cath: The priority of the diagnostic procedure was Emergent. Theindication for the laboratory veterinarian visit is ACS less than or equal [...] 3.5 guiding catheter and a 3.5 Fr [facility] [address] 20 Mhzusing Manual pullback. Imaging was [...] The priority for the procedure was Emergent.[facility] indication for the procedure was STEMI-Immediate [...] The lesion was predilated with a 2.00mm [id number] MM balloon with a maximum inflation pressure of 12atmospheres. A premounted 3.00 x 22 mm Mather Upson (LOW) wasdeployed with a maximum inflation pressure [...] atmospheres. A premounted 3.00 x 08 mm Mather Upson(LOW) was deployed with a maximum inflation pressure [...] administered prior to arrival in the laboratory veterinarian. Recommended anti-platelet/anti-thrombotic regimen: Start aspirin 81 mg daily now and continue for 12 months then stop. Start clopidogrel 75 mg daily now and continue for indefinitely. These recommendations are made at the time of the intervention.Patient and provider preferences or a changing clinical situation mayrequire modification of this regimen. Consult [facility] Interventional Cardiologyfor questions. The 1 [...] wereable to start weaning his inotropes/vasopressors. A [place] Colette catheterwas placed demonstrating improvement in his [...] ventricular assist device insertion, right heart catheterization, [place] (flow directed cath) insertion, access site angiography, [...] CARE TEST O RDERABLES [facility] [place] [address] * (ABNORMAL) BLOOD GAS, POC (07/29/2024 12:12 [...] CARE TEST O RDERABLES [facility] [place] [address] documented in this encounter Visit Diagnoses Not [...] mg ceFAZolin (Ancef) injection PRN, Starting on 07/31/24 at 1736, Until Erna 08/02/24 at 1005, [...] PRN, Starting on Tue07/31/24 at 1711, Until Tue24 at 1006, Intra-Operative (Intra-Procedure), Routine Given 07/31/2024 [...] Discontinued, DO NOT CRUSH OR OPEN, Routine 08 (Given - Provider: Tonya Watson RN) 0934 (Given - Provider: Tonya Watson, RENEA) metoprolol tartrate (Lopressor) tablet 12.5 mg (CANCELED) [...] Oral, EVERY 4 HOURS PRN, Starting on Eran 08/02/24 at 1030, Until Erna 08/02/24 at [...] Routine documented in this encounter Care Teams Manager Surgical Relationship Specialty Start Date End Date Alexia Mtz, MANAGER TRAFFIC [address] [place] [address] PCP - General Family Medicine 07/30/24 documented as of this encounter
--- OUTSIDE RECORDS SUMMARY | 2024-09-21 11:30 | XMS_ITS | Encounter Summary ---
Author Organization [facility] Address [facility] [place] [address] Care Team Providers Care Cost And Sales Record Supervisor Name Role Phone Yoel Artis FREDRICK Primary Care Provider [phone] Reason for Visit * Auth/Cert (Routine) Specialty Diagnoses / Procedures Referred By Theodore t Referred To Contact Diagnoses AIRO Procedures [employer] [facility] Referral ID Status Reason Start Date Expiration Date Visits Re quested Visits Authorized [id number] 1 1 Encounter Details Date Type Department Care Team (Latest Contact Info) Description 07/29/2024 6:32 PM EST - 07/29/2024 11:59 PM [facility] Hospital Encounter [facility] at [address] [phone] Arvin Becerra MD [facility] [address] [place] [address] Discharge Disposition: Home Social History Tobacco Use Types Packs/Day Years Used Date Smoking Tobacco: Former Cigarettes Smokeless Tobacco: Never Alcohol Use Standard Drinks/Week Comments Not Currently 0 (1 standard drink = 0.6 oz pur e alcohol) [facility] Utilities Answer Date Recorded In [...] any time in the past 12 m [facility], were you homeless or living in a care home (including now)? No 07/30/2024 [facility] IPV Inpatient [...] evening. 04/17/2023 08/04/2024 nitroGLYcerin (NITROLINGUAL) 400 mcg/spray [place], Non-AerosolIndications: Proctalgia fugax,Fecal smearing,Constipation, unspecified constipation type 1 spray to anus for proctalgia fugax as needed, not to exceed once daily 12 g 06/01/2023 08/04/2024 documented as of this encounter Plan of Treatment Upcoming Encounters Date Type Department Care Team (Late st Contact Info) Description 10/01/2024 10:00 AM EST Office Visit Cardiology at [address] [phone] Mushtaq Murphy APRN documented as of this encounter Visit Diagnoses Not on filedocumented in this encounter Care Teams Cost And Sales Record Supervisor Relationship Specialty Start Date End Date Yoel Artis APRN [address] [place] [address] PCP - General Internal Medicine 11/18/22 07/29/24 documented as of this encounter
--- OUTSIDE RECORDS SUMMARY | 2024-09-21 11:30 | XMS_ITS | Encounter Summary ---
Author Organization [facility] Address [facility] [place] [address] Care Team Providers Care Wireless Sales Representative Name Role Phone Yoel Artis Ute ALCALA Primary Care Provider [phone] Encounter Details Date Type Department Care Team (Late st Contact Info) Description 07/29/2024 Orders [place] [address] Susannah Watts PA [facility] [place] [address] Social History Tobacco Use Types Packs/Day Years Used Date Smoking Tobacco: Former Cigarettes Smokeless Tobacco: Never Alcohol Use Standard Drinks/Week Comments Not Currently 0 (1 standard drink = 0.6 oz pur e alcohol) [facility] Utilities Answer Date Recorded In the past 12 months has everyArt, Plastio, oil, or water [employer] threatened to shut off services in your [...] 10:00 AM EST Office Visit Cardiology at [facility] [address] [place] [address] Mushtaq Murphy APRN documented as of this encounter Procedures Procedure Name Priority Date/Time Associated Diagnosis Comments ECHOCARDIOGRAM TRANSTHORACIC Routine 07/30/2024 1:41 AM EST documented in this encounter Results * Echocardiogram Transthoracic (07/30/2024 1:41 AM EST) Anatomical Region Laterality Modality Cardiac Other 07/30/2024 1:41 AM EST Narrative 07/30/2024 8:23 AM EST 1 [place] [address] ? Echocardiogram Report Name: KOREY BERMUDEZ ? Study Date: 07/30/2024 01:41 AM : 1950 ? Height: 168 cm Age: 74 yrs ? Weight: 5.9 kg Gender: Male ?BSA: 0.63 m2 Performed By: Beatris Ching MD Reason For Study: STEMI, VT History: ASCVD, HTN, HLD Interpreting Fellow: Beatris Ching. Interpretation Summary This is a limited study performed by a fellow medical record consultant to evaluate for cardiogenic shock with [...] study available for comparison. Procedure Limited - 44375. Suboptimal quality. There is sinus bradycardia. Left [...] Procedure Note Kathleen Banda MD - 07/30/[address] [place] [address] Echocardiogram Report Name: BERMUDEZKOREY Study Date: 07/30/2024 01:41AM : 1950 Height: 168 cm Age: 74 yrs Weight: 5.9 kg Gender: Male BSA: 0.63 m2 Performed By: Beatris Ching MD Reason For Study: STEMI, VT History: ASCVD, HTN, HLD Interpreting Fellow: Beatris Ching. Interpretation Summary This is a limited study performed by a fellow medical record consultant to evaluate forcardiogenic shock with impella [...] study available for comparison. Procedure Limited - 60426. Suboptimal quality. There is sinus bradycardia. Left [...] on filedocumented in this encounter Care Teams Wireless Sales Representative Relationship Specialty Start Date End Date Yoel Artis APRN [address] [place], [place] [id number] PCP - General Internal Medicine 11/18/22 07/29/24 documented as of this encounter
--- OUTSIDE RECORDS SUMMARY | 2024-09-21 11:31 | XMS_ITS | Encounter Summary ---
[place] [address] Care Team Providers Care Food Cashier Name Role Phone Yoel Artis APRN Primary Care Provider [phone] Reason for Referral * Consultation (Routine) - Closed Specialty Diagnoses / Procedures Referred By Theodore muro Referred To Contact Urology Diagnoses Raised prostate specific antigen PERSISTENTLY MILDLY ELEVATED PSA, URINARY FREQ Yoel Artis APRN [address] [place] [address] [facility] [place] [place] [address] Referral ID Status Reason Start Date Expiration Date V isits Requested Visits Authorized [id number] Closed Consult, Test & Treat PCP Updated and/or Approved 07/30/2023 07/29/2024 6 6 Encounter Details Date Type Department Care Team (Late st Contact Info) Description 07/30/2023 Transcribe Orders eDH Incoming Referrals [phone] Yoel Artis APRN [address] [place] [address] Raised prostate specific antigen Social History Tobacco [...] AM EST Office Visit Cardiology at [address] [address] Mushtaq Murphy APRN Scheduled Referrals Name Type Priority Associated Diagnoses Orde r Schedule Referral to Urology Outpatient Referral Routine Raised prostate specific antigen Ordered: 07/30/2023 documented as of this encounter Visit Diagnoses Diagnosis Raised prostate specific antigen Elevated prostate specific antigen (PSA) documented in this encounter Care Teams Food Cashier Relationship Specialty Start Date End Date Yoel Artis APRN [address] [place] [address] PCP - General Internal Medicine 11/18/22 07/29/24 documented as of this encounter
--- OUTSIDE RECORDS SUMMARY | 2024-09-21 11:31 | XMS_ITS | Encounter Summary ---
[place] [address] Care Team Providers Care Internal Medicine Physician Name Role Phone Alexia Mtz ESTATE PLANNING DIRECTOR Primary Care Provider [phone] Encounter Details Date Type Department Care Team (Late st Contact Info) Description 06/25/2024 Lab [place] [phone] Aubrey Cali MD [address] [place] [phone] Pyuria Social History Tobacco Use Types Packs/Day [...] AM EST Office Visit Cardiology at [address] [phone] Mushtaq Murphy APRN documented as of this encounter Procedures Procedure Name Priority Date/Time Associated Diagnosis Comments URINE CULTURE Routine 06/25/2024 11:55 AM EDT Pyuria documented in this encounter Results * Urine culture (06/25/2024 11:55 AM EDT) Urine Culture No growth 06/26/2024 12:[address] [facility] Urine URINE SPECIMEN OBTAINED BY CLEAN CATCH PROCEDURE / Unknown 06/25/2024 11:55 AM EDT 06/25/2024 5:18 PM EDT Aubrey Cali MD MICROBIOLOGY - GENER AL ORDERABLES [facility] [place] [address] documented in this encounter Visit Diagnoses Diagnosis Pyuria Other nonspecific finding on examination of urine documented in this encounter Care Teams Internal Medicine Physician Relationship Specialty Start Date End Date Alexia Mtz APRN [address] [place] [address] PCP - General Family Medicine 07/30/24 documented as of this encounter
--- OUTSIDE RECORDS SUMMARY | 2024-09-21 11:31 | XMS_ITS | Encounter Summary ---
[place] [address] Care Team Providers Care Change Attendant Name Role Phone Yoel Artis Ute ALCALA Primary Care Provider [phone] Encounter Details Date Type Department Care Team (Late st Contact Info) Description 07/28/2024 Interpretation Only [address] [address] Quinten Coffey MD [address] [place] [address] Social History Tobacco Use Types Packs/Day Years [...] AM EST Office Visit Cardiology at [address] [address] Mushtaq Murphy APRN documented as of this encounter Procedures Procedure Name Priority Date/Time Associated Diagnosis Comments XR CHEST ONE VIEW STAT 07/28/2024 10: 22 AM EST documented in this encounter Results * XR Chest One View (07/28/2024 10:22 AM EST) PT CLASS E RAD ADMITDTTM [id number] RAD PT RAD INFO [id number]^Alexx ^Quinten RAD EXAM DESC XCXR1^XR Chest 1 View^RIS RAD WORKSTATION ID [id number] [facility] Anatomical Region Laterality Modality Chest N/A Radiographic Farida ging 07/28/2024 10:2 2 AM EST Impressions 07/28/2024 11:18 AM EST Clear lungs. Thank you for letting us participate in the care of this patient. ??If you are a health care provider and have any questions regarding this report, please contact the number below. ??For patients who have questions please contact the health vision care associate that requested your imaging first. ? Electronically signed by: Darvin Noyola, [facility] ([phone]), at 07/28/2024 11:18 AM Narrative 07/28/2024 11:18 [...] patients who have questions please contactthe health vision care associate that requested your imaging first. Electronically signed by: Darvin Noyola [facility]([phone]), at 07/28/2024 11:18 AM Quinten Coffey MD IMG DX ORDERABLES documented in this encounter Visit Diagnoses Not on filedocumented in this encounter Care Teams Change Attendant Relationship Specialty Start Date End Date Yoel Artis APRN [address] [place] [address] PCP - General Internal Medicine 11/18/22 07/29/24 documented as of this encounter
--- OUTSIDE RECORDS SUMMARY | 2024-09-21 11:31 | XMS_ITS | Encounter Summary ---
[place] [address] Care Team Providers Care Assistant Press Operator Name Role Phone Yoel Artis FREDRICK Primary Care Provider [phone] Encounter Details Date Type Department Care Team (Late st Contact Info) Description 08/26/2023 Telephone [place] [address] Madelyn Vasquez Social History Tobacco Use Types [...] - 08/26/2023 9:23 AM EST Korey Montoya [id number] Diagnosis/Indication: Rectal pain, fecal smearing Please review [...] ever had a/an Colonoscopy before? Yes: Date [id number] ago [facility] If yes, did you have any [...] your procedure. Who will likely be your superintendent drivers for the procedure? Please Verify the height [...] 10:00 AM EST Office Visit Cardiology at [address] [address] Mushtaq Murphy APRN documented as of this encounter Visit Diagnoses Not on filedocumented in this encounter Care Teams Assistant Press Operator Relationship Specialty Start Date End Date Yoel Artis APRN [address] [place] [address] PCP - General Internal Medicine 11/18/22 07/29/24 documented as of this encounter
--- OUTSIDE RECORDS SUMMARY | 2024-09-21 11:31 | XMS_ITS | Encounter Summary ---
[place] [address] Care Team Providers Care Sap Business Objects Consultant Name Role Phone Yoel Artis FREDRICK Primary Care Provider [phone] Reason for Visit * Auth/Cert (Routine) Specialty Diagnoses / Procedures Referred By Theodore t Referred To Contact Diagnoses Anal spasm Fecal smearing Constipation, unspecified Rectal pain, fecal smearing Procedures PRO COLONOSCOPY, DIAGNOSTIC PRO COLONOSCOPY, BIOPSY PRO COLONOSCOPY, REMV LESN, SNARE COLONOSCOPY, DIAGNOSTIC (WRVU 3.26) Brandan Mcgovern MD [facility] [place] [address] [facility] Referral ID Status Reason Start Date Expiration Date Visits Re quested Visits Authorized [id number] 1 1 Encounter Details Date Type Department Care Team (Late st Contact Info) Description 08/30/2023 11:00 AM EST - 08/30/2023 12:00 PM EST [place] [address] Brandan Mcgovern MD [facility] [place] [address] COLONOSCOPY, POLYPECTOMY, REMOVAL LESION BY SNARE (WRVU [...] occurs, please contact your Doctor. Please call [phone] before 8pm Mon-Fri with problems, questions or concerns. If you call after 8pm or on weekends, call the Hospital at [phone] and ask to speak to the Wafer Fabricator retail client solutions analyst and the production honing machine operator will contact that person for you. When should you call for help? Call [phone] anytime you think you may need emergency [...] problems. Where can you learn more? [facility] View your After Visit Summary and more online at [email or web address] If you would like to provide feedback about your hospital experience, please call the Office of Patient and Family Relations at . If you have received this After Visit Summary in error, please immediately return it in person to the department, or notify the [facility] Privacy Office by calling toll free at between the hours of 8AM and 5PM to arrange for our retrieval of the documents at no cost to you. Content Version: 12.2 ?? [id number] [email or web address]. Care instructions adapted under license by [facility]. If you have questions about a medical condition or this instruction, always ask your healthcare professional. [email or web address] disclaims any warranty or liability for your [...] evening. 04/17/2023 08/04/2024 nitroGLYcerin (NITROLINGUAL) 400 mcg/spray [place], Non-AerosolIndications:P roctalgia fugax,Fecal smearing,Constipation, unspecified constipation type [...] 10:00 AM EST Office Visit Cardiology at [address] [address] Mushtaq Murphy APRN documented as of this encounter Procedures Procedure Name Priority Date/Time Associated Diagnosis Comments SPECIMEN TO PATHOLOGY Routine 08/30/2023 11:23 AM EST SURGICAL PATHOLOGY REPORT Routine 08/30/2023 11:21 AM EST COLONOSCOPY Routine 08/30/2023 10:57 AM EST Colonoscopy, Remv Avril, Snare ([id number]) 08/30/2023 10:44 AM EST Proctalgia fugax Fecal smearing Constipation, unspecified constipation type documented in this encounter Results * Specimen to Pathology (08/30/2023 11:23 AM EST) AP Specimen 08/30/2023 11:2 3 AM EST 08/30/2023 11:23 AM EST Narrative [facility] - 08/30/2023 11:23 AM EST Specimen requisition ordered. ??Separate Pathology report to follow Brandan Mcgovern MD PATHOLOGY/CYTOLOGY O JOSH Performing Organization Address [facility]/ZIP Co de Phone Number [facility] [place] [address] * Surgical Pathology Report (08/30/2023 11:21 AM EST) Final Diagnosis [id number] ? Location: 4T; EA12; A The signing pathologist has (i) examined the relevant preparation(s) for the specimen(s) and (ii) rendered or confirmed the diagnosis(es). . ?Surgical Pathology DIAGNOSIS A - Sigmoid colon polyp, resection (Multiple): - ??Tubular adenoma. CR-PX Electronically signed by: ?Blake ORTEGA PhD, Yulia Verified: ??09/08/2023 14:48 ??Pathologist Performed at: ??-[facility] Dept. of Pathology, [place] [address] Baseball Pitcher: Fercho Chan MD, AP, ??CLIA Certificate: [id number] SPECIMEN(S) SUBMITTED A - Sigmoid colon polyp, [...] EST Brandan Mcgovern MD PATHOLOGY/CYTOLOGY O JOSH [facility] [place] [address] [place] [address] * COLONOSCOPY (08/30/2023 10:57 AM EST) [facility] Signature COLONOSCOPY [facility] Endoscopy Procedure Date: 08/30/2023 10:57 AM ? Patient Name: Korey Montoya ? Date of : 1950 ? Age: 73 ? Order #: [id number] ? Instrument Name: [id number] ? Procedure: ? Colonoscopy Indications: ? Rectal [...] preparation was evaluated ? using the BBPS (Troy Bowel ? Preparation Scale) with scores of: [...] documented in this encounter Care Teams Sap Business Objects Consultant Relationship Specialty Start Date End Date Yoel Artis APRN [address] [place] [address] PCP - General Internal Medicine 11/18/22 07/29/24 documented as of this encounter
--- OUTSIDE RECORDS SUMMARY | 2024-09-21 11:31 | XMS_ITS | Encounter Summary ---
[place] [address] Care Team Providers Care Electric Crane Operator Name Role Phone Yoel Artis APRN Primary Care Provider [phone] Reason for Referral * Consultation (Routine) - Closed Specialty Diagnoses / Procedures Referred By Theodore muro Referred To Contact Gastroenterology Diagnoses Anal spasm anal spasm Yoel Artis APRN [address] [place] [address] [facility] [place] [address] Referral ID Status Reason Start Date Expiration Date V isits Requested Visits Authorized [id number] Closed Consult, Test & Treat PCP Updated and/or Approved 05/26/2023 05/25/2024 6 6 Encounter Details Date Type Department Care Team (Late st Contact Info) Description 05/26/2023 Transcribe Orders eDH Incoming Referrals [phone] Yoel Artis APRN [address] [place] [address] Anal spasm Social History Tobacco [...] AM EST Office Visit Cardiology at [address] [address] Mushtaq Murphy APRN Scheduled Referrals Name Type Priority Associated Diagnoses Order Schedule Referral to Gastroenterology Outpatient Referral Routine Anal spasm Ordered: 05/26/2023 documented as of this encounter Visit Diagnoses Diagnosis Anal spasm documented in this encounter Care Teams Electric Crane Operator Relationship Specialty Start Date End Date Yoel Artis APRN [address] [place] [address] PCP - General Internal Medicine 11/18/22 07/29/24 documented as of this encounter
--- OUTSIDE RECORDS SUMMARY | 2024-09-21 11:31 | XMS_ITS | Encounter Summary ---
[place] [address] Care Team Providers Care Director Of Software Engineering Name Role Phone Yoel Artis APRN Primary Care Provider Encounter Details Date Type Department Care Team (Late st Contact Info) Description 12/23/2022 8:20 AM EDT - 12/23/2022 11:59 PM EDT Hospital Encounter [facility] [address] [place] [address] Yoel Artis APRN [address] [place] [address] Discharge Disposition: Home Social History Tobacco Use [...] AM EST Office Visit Cardiology at [address] [address] Mushtaq Murphy APRN documented as of this encounter Procedures Procedure Name Priority Date/Time Associated Diagnosis Comments PSA SCREEN Routine 12/23/2022 8:43 AM EDT documented in this encounter Results * (ABNORMAL) PSA Screen (12/23/2022 8:43 AM EDT) PSA Screen 4.37(H) 0.00 - 4.00 ng/mL [facility] Comment: PLEASE NOTE: The above [...] APRN CHEMISTRY ORDERABLES Performing Organization Address City/State/[facility] Co de Phone Number [facility] [place] [address] documented in this encounter Visit Diagnoses Not on filedocumented in this encounter Care Teams Director Of Software Engineering Relationship Specialty Start Date End Date Yoel Artis APRN [address] [place] [address] PCP - General Internal Medicine 11/18/22 07/29/24 documented as of this encounter
--- OUTSIDE RECORDS SUMMARY | 2024-09-21 11:31 | XMS_ITS | Encounter Summary ---
[place] [address] Care Team Providers Care Cut Off Machine Unloader Name Role Phone Alexia Mtz FREDRICK Primary Care Provider [phone] Encounter Details Date Type Department Care Team (Late st Contact Info) Description 07/29/2024 External [place] [phone] Social History Tobacco Use Types Packs/Day Years [...] 10:00 AM EST Office Visit Cardiology at [address] [address] Mushtaq Murphy APRN documented as of this encounter Procedures Procedure Name Priority Date/Time Associated Diagnosis Comments MISC EXTERNAL CARDIOLOGY RESULT Routine 07/29/2024 10:13 AM EST documented in this encounter Results * External Cardiology Result (07/29/2024 10:13 AM EST) Anatomical Region Laterality Modality Other Historical Provider EXTERNAL CARDIOLO GY RESULT documented in this encounter Visit Diagnoses Not on filedocumented in this encounter Care Teams Cut Off Machine Unloader Relationship Specialty Start Date End Date Alexia Mtz APRN [address] [place] [address] PCP - General Family Medicine 07/30/24 documented as of this encounter
--- OUTSIDE RECORDS SUMMARY | 2024-09-21 11:31 | XMS_ITS | Encounter Summary ---
[place] [address] Care Team Providers Care Cell Tower Climber Name Role Phone Yoel Artis APRN Primary Care Provider [phone] Reason for Referral * Consultation (Routine) - Closed Specialty Diagnoses / Procedures Referred By Theodore muro Referred To Contact Gastroenterology Diagnoses Anal spasm motility- anal spasms Yoel Artis APRN [address] [place] [address] [facility] [place] [facility] [address] [place] [address] Referral ID Status Reason Start Date Expiration Date V isits Requested Visits Authorized [id number] Closed Consult, Test & Treat PCP Updated and/or Approved 11/18/2022 11/18/2023 6 6 Encounter Details Date Type Department Care Team (Late st Contact Info) Description 11/18/2022 Transcribe Orders eDH Incoming Referrals [phone] Yoel Artis APRN [address] [place] [address] Anal spasm Social History Tobacco [...] AM EST Office Visit Cardiology at [address] [address] Mushtaq Murphy APRN Scheduled Referrals Name Type Priority Associated Diagnoses Order Schedule Referral to Gastroenterology Outpatient Referral Routine Anal spasm Ordered: 11/18/2022 documented as of this encounter Visit Diagnoses Diagnosis Anal spasm documented in this encounter Care Teams Cell Tower Climber Relationship Specialty Start Date End Date Yoel Artis APRN [address] [place] [address] PCP - General Internal Medicine 11/18/22 07/29/24 documented as of this encounter
--- OUTSIDE RECORDS SUMMARY | 2024-09-21 11:31 | XMS_ITS | Encounter Summary ---
Author Organization [facility] Address [facility] [place] [address] Care Team Providers Care Shake Cutter Name Role Phone Unknown Primary Care Provider Unavailabl e Encounter Details Date Type Department Care Team (Late st Contact Info) Description 01/13/2019 9:05 PM EDT Ancillary Procedure Radiology Library at [facility] [place] [place] [facility] [phone] Sunny Aviles MD [facility] [place] [address] Social History Tobacco Use Types Packs/Day Years [...] AM EST Office Visit Cardiology at [address] [place] [address] Mushtaq Murphy APRN documented as of this [...] IMG FILM LIBRARY ORDERABLES Performing Organization Address City/State/[facility] Co de Phone Number [place], [place] documented in this encounter Visit Diagnoses Not on filedocumented in this encounter Care Teams Shake Cutter Relationship Specialty Start Date End Date Unknown None PCP - General 08/04/10 01/16/19 documented as of this encounter
--- OUTSIDE RECORDS SUMMARY | 2024-09-21 11:31 | XMS_ITS | Encounter Summary ---
Author Organization [facility] [place] [address] Care Team Providers Care Staff Assistant Name Role Phone Yoel Artis APRN Primary Care Provider [phone] Encounter Details Date Type Department Care Team (Latest Contact Info) Description 11/30/2023 8:00 AM EDT TH Visit (TeleHealth) [place] [address] Yoel Dangelo APRN [facility] [place] [address] Proctalgia fugax; Constipation, unspecified constipation type Social [...] Bath: Sitz bath's are available in most [facility]. They work by improving blood flow and [...] Handout for Patients and Primary Care Providers [facility] Gastrointestinal Motility, Esophageal, and Swallowing Disorders Center What are functional bowel disorders? These are the most common type of gastrointestinal disorders in the [facility] The most common functional bowel [...] what is the impact? 15-20% of general [place] population has IBS or FD or both 2nd most common cause for lost work days (after common cold) in [place] Estimated $30 billion dollar cost to [place] economy per year These disorders can have [...] to you primary care provider and/or local still operator helper and share this document. Treatment of functional [...] - this approach benefits most patients OTC (crhl-eod-pxptpxe) medications can be used for ongoing bothersome symptoms as listed below Your provider (PCP or local Gastroenterology provider or [facility] Gastroenterology provider) may decide to use prescription [...] All-Bran psyllium buds, Metamucil, Konsyl, bulk psyllium ([employer] stores and [employer] stores) Specifically we recommend starting Metamucil or [...] but convincing medical evidence is still lacking Umuc-wbl-itacsrt supplements including probiotics are not typically evaluated [...] to decrease antibiotic-associated diarrhea and antibiotic-related infections Cput-lpb-Lkuakso Medications for Functional Gut Disorders Based on [...] a stool softener that is safe for chcf usage (no risk of dependency) andthe dosage [...] (GERD) Often a combination of anti-nausea medications (capb-pay-nrmqlcv or prescription) works better thanhigh doses of [...] for misuse/misinterpretation of this information Patient Resources [place] [employer] https://www.gastro.org/practice-guidance/jb-ebvhhmd-gofcka/ topic/wsknjbvss-lrlmf-nlucjlvl-ibs Badgut.org https://badgut.org/information-centre/t-z-lugqpjlek-topics/ibs/ AboutIBS.org https://www.aboutibs.org/ Uptodate.com https://www.uptodate.com/contents/iaolwjaao-sbhcd-dgfidfkj-yslses-kzs-aveenk documented in this encounter Progress Notes * [...] Take by mouth. nitroGLYcerin (NITROLINGUAL) 400 mcg/spray [place], Non-Aerosol 1 spray to anus for proctalgia fugax as needed, not to exceed once daily 12 g 0 No facility-administered medications prior to visit. Allergies: has No Known Allergies. Past Medical History: has a past medical history of ADHD, HLD (hyperlipidemia), HTN (hypertension),and Tremor. Past Surgical History: has a past surgical history that includes Hand surgery and Colonoscopy, Antonieta Pfeiffer ([id number]) (N/A, 08/30/2023). Family History: family history is [...] for re-evaluation. The patient was located in [place] at the time of their visit. Yoel Dangelo APRN [facility] [place] [address] documented in this encounter Miscellaneous Notes * Addendum Note - Yoel Dangelo APRN - 11/30/2023 8:00 AM EDTAddended by: YOEL DANGELO on: 11/30/2023 08:46 AM Modules accepted: Level of Service documented in this encounter Plan of Treatment Upcoming Encounters Date Type Department Care Team (Late st Contact Info) Description 10/01/2024 10:00 AM EST Office Visit Cardiology at [address] [address] Mushtaq Murphy APRN documented as of this encounter Visit Diagnoses Diagnosis Proctalgia fugax Anal spasm Constipation, unspecified constipation type documented in this encounter Care Teams Staff Assistant Relationship Specialty Start Date End Date Yoel Artis APRN [address] [place] [address] PCP - General Internal Medicine 11/18/22 07/29/24 documented as of this encounter
--- OUTSIDE RECORDS SUMMARY | 2024-09-21 11:31 | XMS_ITS | Encounter Summary ---
[place] [address] Care Team Providers Care Fuel Efficient Automobile Designer Name Role Phone Yoel Artis FREDRICK Primary Care Provider [phone] Encounter Details Date Type Department Care Team (Late st Contact Info) Description 01/16/2024 Interpretation Only [facility] [address] [place] [address] Chaparro Montana MD [address] [place] [address] Social History Tobacco Use Types Packs/Day Years [...] AM EST Office Visit Cardiology at [address] [address] Mushtaq Murphy APRN documented as of this encounter Procedures Procedure Name Priority Date/Time Associated Diagnosis Comments CT HEAD WO CONTRAST (GENERIC) STAT 01/16/2024 4:17 PM EDT documented in this encounter Results * CT Head wo Contrast (Generic) (01/16/2024 4:17 PM EDT) PT CLASS E RAD ADMITDTTM [id number] [facility] PT RAD INFO [id number]^Haniss henry^Chaparro RAD EXAM DESC CTHEAD^CT Head w/o Contrast^RIS [facility] WORKSTATION ID [id number] [facility] Anatomical Region Laterality Modality Head Computed Tomogra phy 01/16/2024 4:03 PM EDT Impressions 01/16/2024 4:25 PM EDT No acute intracranial pathology. Thank you for letting us participate in the care of this patient. ??If you are a health care provider and have any questions regarding this report, please contact the number below. ??For patients who have questions please contact the health progressive care unit registered nurse that requested your imaging first. ? Electronically signed by: Alejandro Tenorio MD, [facility] ([phone]), at 01/16/2024 4:25 PM Narrative 01/16/2024 4:25 [...] patients who have questions please contactthe health progressive care unit registered nurse that requested your imaging first. Chaparro Montana MD IMG CT ORDERABLES documented in this encounter Visit Diagnoses Not on filedocumented in this encounter Care Teams Fuel Efficient Automobile Designer Relationship Specialty Start Date End Date Yoel Artis APRN [address] [place] [address] PCP - General Internal Medicine 11/18/22 07/29/24 documented as of this encounter
--- OUTSIDE RECORDS SUMMARY | 2024-09-21 11:31 | XMS_ITS | Encounter Summary ---
[place] [address] Care Team Providers Care Labor Delivery Rn Name Role Phone Anibal Mzt MD Primary Care Provider [phone] Encounter Details Date Type Department Care Team (Late st Contact Info) Description 01/18/2019 3:00 PM EDT Interpretation Only Cardiology at [address] [address] Alberto Powell Jr., MD Dizziness Social History [...] AM EST Office Visit Cardiology at [address] [address] Mushtaq Murphy APRN documented as of this [...] giddiness documented in this encounter Care Teams Labor Delivery Rn Relationship Specialty Start Date End Date Anibal Mtz MD [address] [place] [address] PCP - General Family Medicine 01/17/19 11/17/22 documented as of this encounter
--- OUTSIDE RECORDS SUMMARY | 2024-09-21 11:31 | XMS_ITS | Encounter Summary ---
Author Organization [facility] [place] [address] Care Team Providers Care Denture Laboratory Technician Name Role Phone Yoel Artis APRN Primary Care Provider Reason for Referral * Consultation (Routine) - Closed Specialty Diagnoses / Procedures Referred By Theodore muro Referred To Contact Gastroenterology Diagnoses Proctalgia fugax Fecal smearing Constipation, unspecified constipation type group Yoel Dangelo APRN [facility] [place] [address] Paulette Glynn, PhD [facility] [place] [address] Referral ID Status Reason Start Date Expiration Date V isits Requested Visits Authorized [id number] Closed Consult, Test & Treat 06/01/2023 05/31/2024 1 1 Reason for Visit * Consultation (Routine) - Closed Specialty Diagnoses / Procedures Referred By Theodore muro Referred To Contact Gastroenterology Diagnoses Anal spasm motility- anal spasms Yoel Artis APRN [address] [place] [address] [facility] [address] [place] [address] Referral ID Status Reason Start Date Expiration Date V isits Requested Visits Authorized [id number] Closed Consult, Test & Treat PCP Updated and/or Approved 11/18/2022 11/18/2023 6 6 Encounter Details Date Type Department Care Team (Latest Contact Info) Description 06/01/2023 8:00 AM EDT TH Visit (TeleHealth) [place] [address] Yoel Dangelo, PHARMACIST CRITICAL CARE [facility] [place] [address] Proctalgia fugax; Fecal smearing; Constipation, unspecified constipation [...] hear from us within 1 week: Clinic [phone] Motility Lab scheduling [phone] Endoscopy scheduling- [phone] Diagnostics: -Colonoscopy for rectal pain -Anorectal manometry [...] connection and our services, please visit the [facility] Behavioral health website at: [email or web address]. Our hope is that through these classes, [...] please contact your insurance company or the [facility] billing office ([email or web address]). Your insurance company may request a CPT code if you ask about coverage. [place] [address]. If you're interested in attending any of these classes or workshops, please reach out to our scheduling team via [facility] or phone ([phone]). You should start a fiber supplement if [...] Handout for Patients and Primary Care Providers [facility] Gastrointestinal Motility, Esophageal, and Swallowing Disorders Center What are functional bowel disorders? These are the most common type of gastrointestinal disorders in the [facility] The most common functional bowel disorder in the [facility] is irritable bowel syndrome (IBS) Irritable [...] what is the impact? 15-20% of general [place] population has IBS or FD or both 2nd most common cause for lost work days (after common cold) in [place] Estimated $30 billion dollar cost to [place] economy per year These disorders can have [...] to you primary care provider and/or local extrusion manager and share this document. Treatment of functional [...] - this approach benefits most patients OTC (lojv-oqk-ihbasng) medications can be used for ongoing bothersome [...] All-Bran psyllium buds, Metamucil, Konsyl, bulk psyllium ([employer] and [employer] stores) Specifically we recommend starting Metamucil or [...] but convincing medical evidence is still lacking Geuh-juv-fyhatzr supplements including probiotics are not typically evaluated [...] to decrease antibiotic-associated diarrhea and antibiotic-related infections Zgdu-ktm-Odsfnov Medications for Functional Gut Disorders Based on [...] (GERD) Often a combination of anti-nausea medications (yaob-yyg-yvsvmpu or prescription) works better thanhigh doses of [...] for misuse/misinterpretation of this information Patient Resources [place] [employer] https://www.gastro.org/practice-guidance/bx-jyqqqhj-umgcag/ topic/tyblepqto-xhsbx-fjnkkhjy-ibs Badgut.org https://badgut.org/information-centre/j-s-qrqmujhcq-topics/ibs/ AboutIBS.org https://www.aboutibs.org/ Uptodate.com https://www.uptodate.com/contents/wwklhgnzl-bxnqs-ygnpctku-ktcwxf-kjs-ndbvcx documented in this encounter Progress Notes * [...] Denies weight loss Last colo 2017 at [facility] with no polyps. Current Regimen: Metamucil [...] recommendations above. The patient was located in [place] at the time of their visit. TIME SPENT WITH PATIENT Time spent reviewing records prior to this encounter on day of appointment: 2 minutes Time spent during encounter with patient including counselin minutes Time spent documenting encounter after office visit: 7 minutes Yoel Dangelo APR[place] [facility] [place] [address] documented in this encounter Plan of Treatment Upcoming Encounters Date Type Department Care Team (Late st Contact Info) Description 10/01/2024 10:00 AM EST Office Visit Cardiology at [address] [place] [address] Mushtaq Murphy APRN Scheduled Orders Name Type [...] type documented in this encounter Care Teams Denture Laboratory Technician Relationship Specialty Start Date End Date Yoel Artis APRN [address] [place] [address] PCP - General Internal Medicine 11/18/22 07/29/24 documented as of this encounter
--- OUTSIDE RECORDS SUMMARY | 2024-09-21 11:31 | XMS_ITS | Encounter Summary ---
Author Organization [facility] [place] [address] Care Team Providers Care Bar Pointer Name Role Phone Yoel Artis Ute ALCALA Primary Care Provider [phone] Encounter Details Date Type Department Care Team (Late st Contact Info) Description 01/16/2024 5:46 PM EDT - 01/16/2024 11:59 PM EDT Hospital Encounter [facility] [address] [place] [address] Chaparro Montana MD [address] [place] [address] Discharge Disposition: Home Social History Tobacco Use [...] evening. 04/17/2023 08/04/2024 nitroGLYcerin (NITROLINGUAL) 400 mcg/spray [place], Non-AerosolIndications:P roctalgia fugax,Fecal smearing,Constipation, unspecified constipation type 1 spray to anus for proctalgia fugax as needed, not to exceed once daily 12 g 06/01/2023 08/04/2024 documented as of this encounter Plan of Treatment Upcoming Encounters Date Type Department Care Team (Late st Contact Info) Description 10/01/2024 10:00 AM EST Office Visit Cardiology at [address] [address] Mushtaq Murphy APRN documented as of this encounter Procedures Procedure Name Priority Date/Time Associated Diagnosis Comments URINE CULTURE Routine 01/16/2024 4:00 PM EDT documented in this encounter Results * Urine culture (01/16/2024 4:00 PM EDT) Urine Culture No growth (Less than 1,000 cfu/ml). [facility] Urine 01/16/2024 4:00 PM EDT 01/16/2024 10:36 PM EDT Narrative Resulting Agency Comment Spec In Lab Chaparro Montana MD MICROBIOLOGY - [facility] ORDERABLES [facility] [place] [address] documented in this encounter Visit Diagnoses Not on filedocumented in this encounter Care Teams Bar Pointer Relationship Specialty Start Date End Date Yoel Artis APRN [address] [place] [address] PCP - General Internal Medicine 11/18/22 07/29/24 documented as of this encounter
--- OUTSIDE RECORDS SUMMARY | 2024-09-21 11:31 | XMS_ITS | Encounter Summary ---
Author Organization [facility] [place] [address] Care Team Providers Care Locomotive Engineer Electric Name Role Phone Yoel Artis Ute ALCALA Primary Care Provider [phone] Reason for Visit * Auth/Cert (Routine) Specialty Diagnoses / Procedures Referred By Theodore t Referred To Contact Diagnoses Anal spasm Fecal smearing Constipation, unspecified Rectal pain, fecal smearing Procedures PRO COLONOSCOPY, DIAGNOSTIC PRO COLONOSCOPY, BIOPSY PRO COLONOSCOPY, REMV LESN, SNARE COLONOSCOPY, DIAGNOSTIC (WRVU 3.26) Brandan Mcgovern MD [facility] [place] [address] [facility] Referral ID Status Reason Start Date Expiration Date Visits Re quested Visits Authorized [id number] 1 1 Encounter Details Date Type Department Care Team (Latest Contact Info) Description 08/30/2023 10:09 AM EST - 08/30/2023 12:19 PM [facility] Hospital Encounter [place] [address] Brandan Mcgovern MD [facility] [place] [address] Discharge Disposition: Home Social History Tobacco Use [...] occurs, please contact your Doctor. Please call [phone] before 8pm Mon-Fri with problems, questions or concerns. If you call after 8pm or on weekends, call the Hospital at [phone] and ask to speak to the Timber Sprinkler ip litigation associate and the tumbler dyeing machine operator will contact that person for you. When should you call for help? Call 530 anytime you think you may need emergency [...] any problems. Where can you learn more? [facility] View your After Visit Summary and more online at [email or web address] If you would like to provide feedback about your hospital experience, please call the Office of Patient and Family Relations at . If you have received this After Visit Summary in error, please immediately return it in person to the department, or notify the [facility] Privacy Office by calling toll free at between the hours of 8AM and 5PM to arrange for our retrieval of the documents at no cost to you. Content Version: 12.2 ?? [id number] [employer]. Care instructions adapted under license by [facility]. If you have questions about a medical condition or this instruction, always ask your healthcare professional. [employer] disclaims any warranty or liability for your [...] evening. 04/17/2023 08/04/2024 nitroGLYcerin (NITROLINGUAL) 400 mcg/spray [place], Non-AerosolIndications:P roctalgia fugax,Fecal smearing,Constipation, unspecified constipation type [...] AM EST Office Visit Cardiology at [address] [address] Mushtaq Murphy APRN documented as of this encounter Procedures Procedure Name Priority Date/Time Associated Diagnosis Comments SPECIMEN TO PATHOLOGY Routine 08/30/2023 11:23 AM EST SURGICAL PATHOLOGY REPORT Routine 08/30/2023 11:21 AM EST COLONOSCOPY Routine 08/30/2023 10:57 AM EST Colonoscopy, Remv Jonin, Snare ([id number]) 08/30/2023 10:44 AM EST Proctalgia fugax Fecal smearing Constipation, unspecified constipation type documented in this encounter Results * Specimen to Pathology (08/30/2023 11:23 AM EST) AP Specimen 08/30/2023 11:2 3 AM EST 08/30/2023 11:23 AM EST Narrative [facility] - 08/30/2023 11:23 AM EST Specimen requisition ordered. ??Separate Pathology report to follow Brandan Mcgovern MD PATHOLOGY/CYTOLOGY O RDKAY Performing Organization Address [facility] Co de Phone Number [facility] [place] [phone] * Surgical Pathology Report (08/30/2023 11:21 AM EST) Final Diagnosis [id number] ? Location: 4T; EA12; A The signing pathologist has (i) examined the relevant preparation(s) for the specimen(s) and (ii) rendered or confirmed the diagnosis(es). . ?Surgical Pathology DIAGNOSIS A - Sigmoid colon polyp, resection (Multiple): - ??Tubular adenoma. CR-PX Electronically signed by: ?Blake ORTEGA PhD, Yulia Verified: ??09/08/2023 14:48 ??Pathologist Performed at: ??-[facility] Dept. of Pathology, [place] [address] Rehab Nursing Tech: Fercho Chan MD, FCAP, ??CLIA Certificate: [id number] SPECIMEN(S) SUBMITTED A - Sigmoid colon polyp, [...] MD PATHOLOGY/CYTOLOGY O JOSH Performing Organization Address City/[facility]/ZIP Co de Phone Number [facility] [place] [phone] [place] [address] * COLONOSCOPY (08/30/2023 10:57 AM EST) COLONOSCOPY [facility] Endoscopy Procedure Date: 08/30/2023 10:57 AM ? Patient Name: Korey Montoya ? Date of : 1950 ? Age: 73 ? Order #: [id number] ? Instrument Name: [id number] ? Procedure: ? Colonoscopy Indications: ? Rectal [...] preparation was evaluated ? using the BBPS (SendGrid Bowel ? Preparation Scale) with scores of: [...] er: Tika Fowler RN)1049 (Given - Provider: Tiak Fowler RN)1057 (Given - Provider: Tika Fowler RN)1100 (Given - Provider: Tika Fowler RN)1106 (Given - Provider: Tika Fwoler RN) documented in this encounter Care Teams Locomotive Engineer Electric Relationship Specialty Start Date End Date Yoel Artis APRN [address] [place] [address] PCP - General Internal Medicine 11/18/22 07/29/24 documented as of this encounter
--- OUTSIDE RECORDS SUMMARY | 2024-09-21 11:31 | XMS_ITS | Encounter Summary ---
[place] [address] Care Team Providers Care Peanut Picker Name Role Phone Yoel Artis FREDRICK Primary Care Provider [phone] Encounter Details Date Type Department Care Team (Late st Contact Info) Description 01/16/2024 Interpretation Only [facility] [address] [place] [address] Chaparro Montana MD [address] [place] [address] Social History Tobacco Use Types Packs/Day Years [...] AM EST Office Visit Cardiology at [address] [address] Mushtaq Murphy APRN documented as of this encounter Procedures Procedure Name Priority Date/Time Associated Diagnosis Comments XR CHEST ONE VIEW STAT 01/16/2024 4:0 4 PM EDT documented in this encounter Results * XR Chest One View (01/16/2024 4:04 PM EDT) PT CLASS E RAD ADMITDTTM [id number] RAD PT RAD INFO [id number]^Haniss henry^Chaparro RAD EXAM DESC XCXR1^XR Chest 1 View^RIS RAD WORKSTATION ID [id number] [facility] Anatomical Region Laterality Modality Chest N/A Radiographic [...] questions please contact the health child care that requested your imaging first. ? [...] have questions please contactthe health child care that requested your imaging first. Electronically signed by: Alexey Winslow MD, [facility]([phone]), at 01/16/2024 4:08 PM Chaparro Montana MD IMG DX ORDERABLES documented in this encounter Visit Diagnoses Not on filedocumented in this encounter Care Teams Peanut Picker Relationship Specialty Start Date End Date Yoel Artis APRN [address] [place] [address] PCP - General Internal Medicine 11/18/22 07/29/24 documented as of this encounter
--- OUTSIDE RECORDS SUMMARY | 2024-09-21 11:31 | XMS_ITS | Encounter Summary ---
[place] [address] Care Team Providers Care Electronic Prepress Operator Name Role Phone Anibal Mtz MD Primary Care Provider [phone] Encounter Details Date Type Department Care Team (Late st Contact Info) Description 11/08/[address] [facility] Only [address] [phone] Eve Frost MD [address] [place] [id number] Social History Tobacco Use Types Packs/Day Years [...] AM EST Office Visit Cardiology at [address] [address] Mushtaq Murphy APRN documented as of this encounter Procedures Procedure Name Priority Date/Time Associated Diagnosis Comments XR CHEST PA AND LATERAL STAT 11/08/2022 10:34 AM EST documented in this encounter Results * XR Chest PA & Lateral (Generic) (11/08/2022 10:34 AM EST) PT CLASS E RAD ADMITDTTM RAD PT RAD INFO [id number]^C HANDER^SUNEE R RAD EXAM DESC XCXR2^XR CHEST [...] have questions please contact the health healthcare recruiter that requested your imaging first. ? Electronically signed by: Alejandro Tenorio MD, [facility] ([phone]), at 11/08/2022 10:37 AM Narrative 11/08/2022 10:37 [...] who have questions please contactthe health healthcare recruiter that requested your imaging first. Eve Frost MD IMG DX ORDERABLES documented in this encounter Visit Diagnoses Not on filedocumented in this encounter Care Teams Electronic Prepress Operator Relationship Specialty Start Date End Date Anibal Mtz MD [address] [place] [address] PCP - General Family Medicine 01/17/19 11/17/22 documented as of this encounter
--- OUTSIDE RECORDS SUMMARY | 2024-09-21 11:31 | XMS_ITS | Encounter Summary ---
Author Organization [facility] Address [facility] [place] [address] Care Team Providers Care Telephone Worker Name Role Phone Yoel Artis FREDRICK Primary Care Provider [phone] Encounter Details Date Type Department Care Team (Late st Contact Info) Description 07/29/2024 [place] [phone] Ivan Hernandez MD [facility] [place] [address] Social History Tobacco Use Types Packs/Day Years Used Date Smoking Tobacco: Former Cigarettes Smokeless Tobacco: Never Alcohol Use Standard Drinks/Week Comments Not Currently 0 (1 standard drink = 0.6 oz pur e alcohol) [facility] Utilities Answer Date Recorded In the past 12 months has e [employer], gas, oil, or water [employer] threatened to shut off services in your [...] in the past 12 m [facility], were you homeless or living in a [...] 9:50 AM Hospital to which patient presented: [facility] If Hospital to which patient presented= [facility] [place]: ED Walk In [...] Unfractionated Heparin Plan STEMI Alert called: Yes Greens Keeper Activated by: Geotechnicial Properties Technician Initial Disposition: Admit Greens Keeper documented in this encounter Plan of Treatment Upcoming Encounters Date Type Department Care Team (Late st Contact Info) Description 10/01/2024 10:00 AM EST Office Visit Cardiology at [address] [address] Mushtaq Murphy APRN documented as of this encounter Visit Diagnoses Not on filedocumented in this encounter Care Teams Telephone Worker Relationship Specialty Start Date End Date Yoel Artis APRN [address] [place] [address] PCP - General Internal Medicine 11/18/22 07/29/24 documented as of this encounter
--- OUTSIDE RECORDS SUMMARY | 2024-09-21 11:31 | XMS_ITS | Encounter Summary ---
[place] [address] Care Team Providers Care Electronic Equipment Repairer Name Role Phone Unknown Primary Care Provider Unavailabl e Encounter Details Date Type Department Care Team (Late st Contact Info) Description 12/03/2018 Interpretation Only [address] [phone] Ac Albrecht PA [address] [place] [address] [place] [address] Social History Tobacco Use Types Packs/Day Years [...] AM EST Office Visit Cardiology at [address] [address] Mushtaq Murphy, SUPERVISING FIRE MARSHAL documented as of this encounter Procedures Procedure [...] below. ? Electronically signed by: Darvin Noyola [facility] ([phone]), at 12/03/2018 1:33 PM Narrative 12/03/2018 1:38 [...] number below. Electronically signed by: Darvin Noyola [facility]([phone]), at 12/03/2018 1:33 PM Ac SERRANO IMG DX ORDERABLES documented in this encounter Visit Diagnoses Not on filedocumented in this encounter Care Teams Electronic Equipment Repairer Relationship Specialty Start Date End Date Unknown None PCP - General 08/04/10 01/16/19 documented as of this encounter
--- OUTSIDE RECORDS SUMMARY | 2024-09-21 11:31 | XMS_ITS | Encounter Summary ---
[place] [address] Care Team Providers Care Planting Supervisor Name Role Phone Yoel Artis APRN Primary Care Provider [phone] Encounter Details Date Type Department Care Team (Late st Contact Info) Description 03/01/2023 9:30 AM EDT - 03/01/2023 11:59 PM EDT Hospital Encounter [facility] [address] [place] [address] Yoel Artis APRN [address] [place] [address] Discharge Disposition: Home Social History Tobacco Use [...] AM EST Office Visit Cardiology at [address] [address] Mushtaq Murphy APRN documented as of this encounter Procedures Procedure Name Priority Date/Time Associated Diagnosis Comments PSA (ULTRASENSITIVE) Routine 03/01/2023 9:38 AM EDT documented in this encounter Results * (ABNORMAL) PSA (Ultrasensitive) (03/01/2023 9:38 AM EDT) Prostate Specific Antigen (Ultrasensitive) 5.09(H) 0.00 - 4.00 ng/mL [facility] Comment: PLEASE NOTE: The above [...] In Lab Yoel Artis APRN CHEMISTRY ORDERABLES [facility] [place] [address] documented in this encounter Visit Diagnoses Not on filedocumented in this encounter Care Teams Planting Supervisor Relationship Specialty Start Date End Date Yoel Artis APRN [address] [place] [address] PCP - General Internal Medicine 11/18/22 07/29/24 documented as of this encounter
--- OUTSIDE RECORDS SUMMARY | 2024-09-24 11:12 | XMS_ITS | Encounter Summary ---
[place] [address] Care Team Providers Care Senior Center Manager Name Role Phone Alexia Mtz FREDRICK Primary Care Provider [phone] Encounter Details Date Type Department Care Team (Late st Contact Info) Description 09/21/2024 External Results Non-Invasive [place] [phone] Social History Tobacco Use Types Packs/Day Years Used Date Smoking Tobacco: Former Cigarettes Smokeless Tobacco: Never Alcohol Use Standard Drinks/Week Comments Not Currently 0 (1 standard drink = 0.6 oz pur e alcohol) [facility] Utilities Answer Date Recorded In the past [...] in the past 12 m [facility], were you homeless or living [...] AM EST Office Visit Cardiology at [address] [address] Mushtaq Murphy APRN documented as of this encounter Procedures Procedure Name Priority Date/Time Associated Diagnosis Comments EEG SCAN Routine 07/29/2024 9:44 AM EST documented in this encounter Results * Scan Doc: EEG (07/29/2024 9:44 AM EST) Historical Provider MD MEDIA MGR SCAN EX T ORDR/RSLT documented in this encounter Visit Diagnoses Not on filedocumented in this encounter Care Teams Senior Center Manager Relationship Specialty Start Date End Date Alexia Mtz APRN [address] [place] [id number] PCP - General Family Medicine 07/30/24 documented as of this encounter
--- OUTSIDE RECORDS SUMMARY | 2024-09-24 11:12 | XMS_ITS | Encounter Summary ---
Author Organization Formerly [facility], [facility] Address [facility] [place] [address] Care Team Providers Care General Worker Name Role Phone Seis LagosAlexia shell Shun ALCALA Primary Care Provider Reason for Referral * Consultation (Routine) - Authorized Specialty Diagnoses / Procedures Referred By Conteleazar t Referred To Contact Cardiology Diagnoses HFrEF (heart failure with reduced ejection fraction) [facility] S/P D/C acute HFrEF Alex Small MD [facility] [place] [address] Mushtaq Murphy APRN [facility] [place] [address] Referral ID Status Reason Start Date Expiration Date Visits Requested Visits Authorized [id number] Authorized Consult, Test & Treat 08/04/2024 08/04/2025 1 1 * Consultation (Routine) - Authorized Specialty Diagnoses / Procedures Referred By Contac t Referred To Contact Cardiology Diagnoses ST elevation myocardial infarction involving left anterior descending (LAD) coronary artery Yrn Ward MD [facility] [place] [address] Cardiac Rehab, [address] [place] [address] Referral ID Status Reason Start Date Expiration Date Visits Requested Visits Authorized [id number] Authorized Consult, Test & Treat 08/04/2024 01/31/2025 36 36 Reason for Visit * Auth/Cert (Routine) Specialty Diagnoses / Procedures Referred By Contac t Referred To Contact Diagnoses STEMI (ST elevation myocardial infarction) STEMI Procedures ER IPI Vahe Marvin MD [facility] [place] [address] [facility] Referral ID Status Reason Start Date Expiration Date Visits Re quested Visits Authorized [id number] 1 1 Encounter Details Date Type Department Care Team (Latest Contact Info) Description 07/29/2024 11:45 AM EST - 08/04/2024 5:00 PM EST Hospital Encounter Cardiovascular [place] [phone] Vahe Marvin MD [facility] [place] [address] Jay Silverio MD [facility] [place] [address] Krystal Parker MD [facility] [place] [address] Bridgette Stauffer MD [facility] [place] [address] Yrn Ward MD [facility] [place] [address] Alex Small MD [facility] [place] [address] ST elevation myocardial infarction involving left anterior descending (LAD) coronary artery; HFrEF (heart failure with reduced ejection fraction) Discharge Disposition: Home Social History Tobacco Use Types Packs/Day Years Used Date Smoking Tobacco: Former Cigarettes Smokeless Tobacco: Never Alcohol Use Standard Drinks/Week Comments Not Currently 0 (1 standard drink = 0.6 oz pur e alcohol) [facility] Utilities Answer Date Recorded In the past [...] Korey Montoya Patient Age: 74 y.o. Language: Guamanian Race: White Ethnicity: Not nor Admit date: [...] the [facility] Construction Craft Laborer . Issues afterhours and on weekends will [...] at time of transfer to [facility]. CI initially 1.97, improved to 2.2 [...] the next year. Access was via right PROBLEM MANAGER and this sitewas clean, dry and [...] for Chest pain. Replaces: nitroGLYcerin 400 mcg/spray Elliott, Non-Aerosol 0.4 mg Quantity: 90 tablet Refills: [...] Refills: 0 STOPPED Medications nitroGLYcerin 400 mcg/spray Elliott, Non-Aerosol Commonly known as: NITROLINGUAL Replaced by: [...] of one year. After this time, your professor of archaeology will determine if you need to continue [...] away. Stay on the phone. The emergency airport control operator will tell you what to do. [...] appointments: During 8am-5pm Tuesday through Tuesday call [phone] to speak with a nurse in the cardiology clinic All other times call [phone] and ask to speak to the nuclear cardiology technologist operations manager assistant. Follow up Appointments: PCP Alexia Mtz, DATABASE SUPPORT [phone]. Please call to establish a follow up appointment within 1-2 weeks of discharge. Cardiology. Referral to heart failure has been sent. General Instructions None Future Appointments and Orders Future Orders Complete By Expires Referral to Cardiac Rehab [[id number] Custom] As directed Process Instructions: If no progress note charted, please enter Clinical details in comments. Scheduling Instructions: Questions: My question or request is: STEMI, PCI- cardiac rehab at [facility] Referral to Cardiology [REF12 Custom] As directed [...] of one year. After this time, your professor of archaeology will determine if you need to continue [...] away. Stay on the phone. The emergency airport control operator will tell you what to do. [...] appointments: During 8am-5pm Tuesday through Tuesday call [phone] to speak with a nurse in the cardiology clinic All other times call [phone] and ask to speak to the nuclear cardiology technologist operations manager assistant. Follow up Appointments: PCP Alexia Mtz, DATABASE SUPPORT [phone]. Please call to establish a follow up [...] 07/29 for LHC and LOW to [facility] for 100% occlusion Social History: Pt lives with his in a 1 level home with 2 NAOMI. Pt was indep LAYOUT FORMER. 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 He [...] Total time: 35 (tef) minutes Time IN/OUT: 7394-4492 ZAIDA DUBOSE PT Pager: [phone] Physical Therapy Inpatient Rehabilitation Department * Yrn Ward MD - 08/03/2024 10:38 AM EST CV HOSPITALIST 2 - [facility] DAILY PROGRESS NOTE Page [phone] to reach a provider 04/04 Admit Date: [...] or before 29-JUL-2024) Lateral injury pattern ACUTE NV / STEMI Abnormal ECG When compared with [...] left ventricular ejection fraction is 33% by Goirdano's biplane. There are segmental wall motion abnormalities. [...] Compared to the overnight study by the operations manager assistant fellow the impella position is stable. The [...] to be determined OT: PCP Alexia Mtz, DATABASE SUPPORT [phone] * Zaida Dubose, PT - 08/02/2024 2:08 [...] home with 2 NAOMI. Pt was indep LAYOUT FORMER. 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 He [...] Total time: 37 (eval) minutes Time IN/OUT: 5501-8626 ZAIDA DUBOSE PT Pager: [phone] Physical Therapy Inpatient Rehabilitation Department * Gagan [...] at time of transfer to [facility]. CI initially 1.97, improved to 2.2 After impella. Received about 3 L of fluid during procedural course. Patient initially required norepinephrine 30, epinephrine 10, and vasopressin 0.04 for hemodynamic support, which was weaned upon arrival to [facility] to norepinephrine 20and levo 0.04 N [...] PCP: Alexia Mtz APRN PCP phone number: [phone] Date of Admission: 07/29/2024 ( Hospital Day [...] 07/29/24 1621 PHART 7.48* 7.44 7.38 7.37 [id number] 29* 29* 34* 36 PO2ART 71* 109* 141* 71* FPM7DDQ 20.6 19.4* 19.5* 20.4 VBG (Venous Blood Gas) Recent Labs 07/29/24 1401 PHVEN 7.30* PO2VEN 39 JLY9OTE 20.1* Mixed Venous Sat No results for input(s): Z7TEIM2 in the last 168 hours. Objective: Vitals [...] 07/29/24 1621 PHART 7.48* 7.44 7.38 7.37 XVX1UVT 29* 29* 34* 36 PO2ART 71* 109* 141* 71* LJD7PKD 20.6 19.4* 19.5* 20.4 VBG (Venous Blood Gas) Recent Labs 07/29/24 1401 PHVEN 7.30* PO2VEN 39 XML5RJJ 20.1* Mixed Venous Sat No results for input(s): D1LNYQ4 in the last 168 hours. Microbiology: Microbiology Results (Last 30 days) Procedure Component Value Units Date/Time Blood culture [[id number]] Collected: 07/29/241607 Lab Status: Preliminary result Specimen: Blood, Venous Updated: 08/01/24 170 Blood Culture No growth at 72 hours Blood culture [[id number]] Collected: 07/29/241607 Lab Status: Preliminary result Specimen: Blood, Venous Updated: 08/01/241700 Blood Culture No growth at 72 hours Imaging: Results for orders placed or performed during the hospital encounter of 07/29/24 XR Chest One View (Exam End: 07/29/2024 2:30 PM) Result Value WORKSTATION ID [id number] Impression 1. No pulmonary edema. 2. No pleural effusion. 3. No pneumothorax. Thank you for letting us participate in the care of this patient. If you are a health care provider and have any questions regarding this report, please contact the number below. For patients who have questions please contact the health professional healthcare representative that requested your imaging first. ( 07/30/24) [...] Compared to the overnight study by the operations manager assistant fellow the impella position is stable. The [...] MD Internal Medicine, PGY-1 Cardiology, [facility] 08/02/24 12:45 PM CARDIOLOGY STAFF NOTE [...] floor. Krystal Parker MD, [facility], [facility] Staff Casino Games Dealer puller out * Gagan Catherine MD - 08/01/2024 11:12 [...] PCP: Alexia Mtz APRN PCP phone number: [phone] Date of Admission: 07/29/2024 ( Hospital Day [...] 07/29/24 1621 PHART 7.48* 7.44 7.38 7.37 JQH9ZYX 29* 29* 34* 36 PO2ART 71* 109* 141* 71* XUG8RHM 20.6 19.4* 19.5* 20.4 VBG (Venous Blood Gas) Recent Labs 07/29/24 1401 PHVEN 7.30* PO2VEN 39 HUI1NUK 20.1* Mixed Venous Sat No results for input(s): R5DXPW8 in the last 168 hours. PA Catheter [...] 07/29/24 1621 PHART 7.48* 7.44 7.38 7.37 ZEE1ZWU 29* 29* 34* 36 PO2ART 71* 109* 141* 71* MJV1PLF 20.6 19.4* 19.5* 20.4 VBG (Venous Blood Gas) Recent Labs 07/29/24 1401 PHVEN 7.30* PO2VEN 39 QLP8RPE 20.1* Mixed Venous Sat No results for input(s): T0YQZD1 in the last 168 hours. Microbiology: Microbiology Results (Last 30 days) Procedure Component Value Units Date/Time Blood culture [[id number]] Collected: 07/29/241607 Lab Status: Preliminary result Specimen: Blood, Venous Updated: 07/31/241700 Blood Culture No growth at 48 hours Blood culture [[id number]] Collected: 07/29/241607 Lab Status: Preliminary result Specimen: Blood, Venous Updated: 07/31/241700 Blood Culture No growth at 48 hours Imaging: Results for orders placed or performed during the hospital encounter of 07/29/24 XR Chest One View (Exam End: 07/29/2024 2:30 PM) Result Value WORKSTATION ID [id number] Impression 1. No pulmonary edema. 2. No pleural effusion. 3. No pneumothorax. Thank you for letting us participate in the care of this patient. If you are a health care provider and have any questions regarding this report, please contact the number below. For patients who have questions please contact the health professional healthcare representative that requested your imaging first. ( 07/30/24) [...] Compared to the overnight study by the operations manager assistant fellow the impella position is stable. The [...] MD Internal Medicine, PGY-1 Cardiology, [facility] 08/01/24 7:13 AM CARDIOLOGY STAFF NOTE [...] Parker MD, [facility], [facility] Staff Casino Games Dealer puller out * Krystal Pakrer MD - 07/31/2024 1:06 PM EST Cardiovascular [...] THESE DIAGNOSES BEING MANAGED BY [facility] TEAM: # Anterior STEMI, late-presenting # [...] at time of transfer to [facility]. CI initially 1.97, improved to 2.2 After impella. Received about 3 L of fluid during procedural course. Patient initially required norepinephrine 30, epinephrine 10, and vasopressin 0.04 for hemodynamic support, which was weaned upon arrival to [facility] to norepinephrine 20and levo 0.04 N [...] PCP: Alexia Mtz APRN PCP phone number: [phone] Date of Admission: 07/29/2024 ( Hospital Day [...] 0057 07/29/24 1621 PHART 7.44 7.38 7.37 SLM4MPO 29* 34* 36 PO2ART 109* 141* 71* QRW0TKA 19.4* 19.5* 20.4 VBG (Venous Blood Gas) Recent Labs 07/29/24 1401 PHVEN 7.30* PO2VEN 39 GAF6KDW 20.1* Mixed Venous Sat No results for input(s): Q3ZNIT7 in the last 168 hours. PA Catheter [...] 0057 07/29/24 1621 PHART 7.44 7.38 7.37 PQI6DOU 29* 34* 36 PO2ART 109* 141* 71* KGF8TMP 19.4* 19.5* 20.4 VBG (Venous Blood Gas) Recent Labs 07/29/24 1401 PHVEN 7.30* PO2VEN 39 GNW0DYQ 20.1* Mixed Venous Sat No results for input(s): B9PRTT7 in the last 168 hours. Microbiology: Microbiology Results (Last 30 days) Procedure Component Value Units Date/Time Blood culture [[id number]] Collected: 07/29/241607 Lab Status: Preliminary result Specimen: Blood, Venous Updated: 07/30/241700 Blood Culture No Growth at 18-24 hrs. Blood culture [[id number]] Collected: 07/29/241607 Lab Status: Preliminary result Specimen: Blood, Venous Updated: 07/30/241700 Blood Culture No Growth at 18-24 hrs. Imaging: Results for orders placed or performed during the hospital encounter of 07/29/24 XR Chest One View (Exam End: 07/29/2024 2:30 PM) Result Value WORKSTATION ID [id number] Impression 1. No pulmonary edema. 2. No pleural effusion. 3. No pneumothorax. Thank you for letting us participate in the care of this patient. If you are a health care provider and have any questions regarding this report, please contact the number below. For patients who have questions please contact the health professional healthcare representative that requested your imaging first. ( 07/30/24) [...] Compared to the overnight study by the operations manager assistant fellow the impella position is stable. The [...] work to optimize volume status while continuing hnwmwhl-ycjplp-unyjkoxrxm therapies at this time. Obtain comprehensive TTE. [...] at time of transfer to [facility]. CI initially 1.97, improved to 2.2 After impella. Received about 3 L of fluid during procedural course. Patient initially required norepinephrine 30, epinephrine 10, and vasopressin 0.04 for hemodynamic support, which was weaned upon arrival to [facility] to norepinephrine 20and levo 0.04 N [...] PCP: Yoel Artis APRN PCP phone number: [phone] Date of Admission: 07/29/2024 ( Hospital Day [...] 0057 07/29/24 1621 PHART 7.44 7.38 7.37 WSG5VKN 29* 34* 36 PO2ART 109* 141* 71* ETQ3AOM 19.4* 19.5* 20.4 VBG (Venous Blood Gas) Recent Labs 07/29/24 1401 PHVEN 7.30* PO2VEN 39 OIG2MSR 20.1* Lactate ( Last 12 hours) 1.3 >> 1.2 Mixed Venous Sat No results for input(s): R9HCLM0 in the last 168 hours. PA Catheter [...] 0057 07/29/24 1621 PHART 7.44 7.38 7.37 JGD7OLK 29* 34* 36 PO2ART 109* 141* 71* MDB9HTM 19.4* 19.5* 20.4 VBG (Venous Blood Gas) Recent Labs 07/29/24 1401 PHVEN 7.30* PO2VEN 39 AHM4CTJ 20.1* Mixed Venous Sat No results for input(s): P1LTGH1 in the last 168 hours. Microbiology: Microbiology Results (Last 30 days) Procedure Component Value Units Date/Time Blood culture [[id number]] Collected: 07/29/24 160 Lab Status: In process Specimen: Blood, Venous Updated: 07/29/24 162 Blood culture [[id number]] Collected: 07/29/241607 Lab Status: In process Specimen: Blood, Venous Updated: 07/29/24 161 Imaging: Results for orders placed or performed during the hospital encounter of 07/29/24 XR Chest One View (Exam End: 07/29/2024 2:30 PM) Result Value WORKSTATION ID [id number] Impression 1. No pulmonary edema. 2. No pleural effusion. 3. No pneumothorax. Thank you for letting us participate in the care of this patient. If you are a health care provider and have any questions regarding this report, please contact the number below. For patients who have questions please contact the health professional healthcare representative that requested your imaging first. Medications Scheduled [...] [facility] for further management and [facility] demo [...] performed by Brandan Mcgovern MD [facility] ENDOSCOPY Significant Family History: Family [...] mouth. Past Week nitroGLYcerin (NITROLINGUAL) 400 mcg/spray Elliott, Non-Aerosol 1 spray to anus for proctalgia [...] 3.5 guiding catheter and a 3.5 Fr [facility] [place] [address] 20 Mhz using Manual pullback. Imaging [...] for the procedure was Emergent. The [facility] indication for the procedure was [...] atmospheres. A premounted 3.00 x 22 mm [place] (LOW) was deployed with a maximum inflation [...] atmospheres. A premounted 3.00 x 08 mm [place] (LOW) was deployed with a maximum inflation [...] a limited study performed by a fellow operations manager assistant to evaluate for cardiogenic shock with impella [...] Compared to the overnight study by the operations manager assistant fellow the impella position is stable. The [...] MD Provider #: [id number] 08/02/2024 * Jay Silveiro MD - 07/29/2024 2:10 PM EST Images from the original note were not included. Cardiology ICU H&P Patient info: Name: Korey Montoya : 1950 PCP: Yoel Artis APRN PCP phone number: [phone] Date of Admission: 07/29/2024 ( Hospital Day [...] performed by Brandan Mcgovern MD [facility] ENDOSCOPY Family History Family History [...] Blood Gas) No results for input(s): PHART, NZS4GAC, PO2ART, VRR0CIU, LACTATEVEN, GUF4WZF, PFRATIOART2 in the last 168 hours. VBG (Venous Blood Gas) Recent Labs 07/29/24 1401 PHVEN 7.30* PO2VEN 39 SGS1PSN 20.1* Mixed Venous Sat No results for input(s): Z9XLLI5 in the last 168 hours. PA Catheter [...] Blood Gas) No results for input(s): PHART, ROL6EDY, PO2ART, FJE3ZRM, LACTATEVEN, YQI4JTL, PFRATIOART2 in the last 168 hours. VBG (Venous Blood Gas) Recent Labs 07/29/24 1401 PHVEN 7.30* PO2VEN 39 PVL5BDR 20.1* Mixed Venous Sat No results for input(s): M0CBCG3 in the last 168 hours. Microbiology: Microbiology [...] [facility] for C. Found to have 100% occlusion of LAD for which he underwent LOW to LAD.Otherwise no other significant vessel disease. Fahad is currently hemodynamically tenuous but improving upon admission to [facility], requiring hemodynamic support with norepinephrine and vasopressin at time of admission along with mechanical support with Impella device. Reassuringly, he demonstrates decreasing pressor requirements since admission to [facility], with epinephrine completely weaned. He does [...] MD Internal Medicine, PGY-3 Cardiology, [facility] 07/29/24 3:14 PM Cardiology Attending Note [...] of Cardiovascular Medicine [facility] Form Block Makercw operator [facility] [employer] [facility] This patient meets or has met medical [...] to the planned procedure. Hand Hygiene: The learning and development coordinator did perform hand hygiene prior to [...] was drawn with ease. Good wave form. Ivna Hernandez MD Commercial Light Fixture Assembler Associated attestation - Rolando Yeh MD - [...] Fahad was quite active prior to his NV. 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 Given parameters for home exercise. He follows a heart healthy diet and is not overweight. His lipids are wnl. Participation in an outpatient cardiac rehabilitation program at [facility] was discussed. Patient agrees to a referral [...] Payor: AARP MANAGED MEDICARE / Plan: AARP [facility] MANAGED MEDICARE COMPLETE / Product Type: [...] of Discharge: 08/04/2024 Gaby Wong RN, CM [phone] * Initial Assessments - Char Meza OT [...] performed by Brandan Mcgovern MD [facility] ENDOSCOPY Social History: Patient lives with his . Home Setup: 2 NAOMI to a 1 level home. DME: none Baseline ADL/Mobility: Independent with ADLs and IADLs. Enjoys walking. able assist as needed. Precautions/Special Considerations: Full code. Risk for falls. Subjective: I have access to an [employer] weight gym. (Educated to wait for MD [...] evaluation only Total Minutes, Occupational Therapy: 14 (3791-1967 (evaluation)) 2017 OT Evaluation Code Rationale: Diagnosis [...] and measurable assessment of functional outcome. Pager: [phone] Char Meza OT 08/03/2024 Occupational Therapy Rehabilitation [...] Procedure Note: Patient Name: Korey Montoya : [id number] MR#: [id number] Case Date: 07/31/2024 Construction Craft Laborer: Surgeons and Role: * Maldonado Luis MD - Primary * Quinten Charles PA - Physician Felt Hat Flanging Operator Preoperative diagnosis: shock, impella Postoperative diagnosis: * same * Procedure(s) performed: Impella removal form right PROBLEM MANAGER Access: Right PROBLEM MANAGER A time-out was conducted prior to [...] Admitted From: Transfer from another hospital Location: [facility] Reason for Hospitalization: chest pain Past [...] receiving care in [place] must abide by [place] law. The hierarchy [...] (i) The agent with financial power of admitted attorneys or a conservator appointed in accordance with [...] In the past 12 months has the [employer] gas, oil, or water for; to (do) threatened to shut off services in your [...] Mailing Address: [address] [place] [address] Physical Address: [address], [place] Social & Family Supports: All names [...] Addiction likely Health/Prescription Coverage: Primary Insurance: [facility] [employer] MEDICARE Payor: [facility] MANAGED MEDICARE / Plan: [facility] [employer] MEDICARE COMPLETE / Product Type: *No Product type* / Secondary Insurance: N/A ; Prescription Coverage: Yes Preferred Pharmacy: [address] [address] [place] Status: Patient is a : No Primary Care Provider confirmed: Alexia Mtz, FREDRICK [phone] Patient/Caregiver Goals of Treatment: return home Potential [...] 07/29/2024 6:25 PM EST Pt arrived from construction craft 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 CXR and EKG completed. [...] Procedure Note: Patient Name: Korey Montoya : [id number] MR#: [id number] Case Date: 07/29/2024 Construction Craft Laborer: Surgeons and Role: * Vahe Marvin MD - Primary * Susannah Watts PA - Physician Felt Hat Flanging Operator Preoperative diagnosis: STEMI Postoperative diagnosis: * STEMI, LAD Artery * * Cardiogenic Shock * Procedure(s) performed: [facility] Coronary angiogram Stent insertion coronary IVUS coronary Venous line insert [facility] Riley Colette Catheter Vascular closure device Ventricular assist [...] x 22 mm to 14 deonna JEISON Bayfield with LIZ 3 flow. Residual distal disease at distal stent, overlapping distal stent was inserted with 3.0 x 8 mm JEISON [place]. Systolic's in the 80's sustained. Patient re [...] AM EST Office Visit Cardiology at [address] [address] Mushtaq Murphy, DATABASE SUPPORT Scheduled Orders Name Type Priority Associated Diagnoses [...] CBC (with Diff) (08/04/2024 6:08 AM EST) [facility] White Blood Cell 7.27 4.00 - 9.50 [...] - 0.04 x10(3)/mc L 08/04/2024 6:39 AM [facility] Blood VENOUS BLOOD SPECIMEN / Unknown Venipuncture / Unknown 08/04/2024 6:08 AM EST 08/04/2024 6:19 AM EST Bridgette Stauffer MD HEMATOLOGY ORDERABLE S [facility] [place] [address] * Magnesium (08/04/2024 6:08 AM EST) Magnesium 0.85 0.69 - 1.07 mMol/L 08/04/2024 7:07 AM [facility] Blood VENOUS BLOOD SPECIMEN / Unknown Venipuncture / Unknown 08/04/2024 6:08 AM EST 08/04/2024 6:19 AM EST Bridgette Stauffer MD CHEMISTRY ORDERABLES [facility] [place] [address] * Basic Metabolic Panel (08/04/2024 6:08 AM EST) Glucose 93 65 - 199 mg/dL 08/04/2024 7:07 AM [facility] Comment:Glucose Concentratio n >=200 mg/dL plus symptoms is consistent with Diabetes Mellitus. Blood Urea Nitrogen 14 10 - 20 mg/dL 08/04/2024 7:07 AM [facility] Creatinine 1.07 0.80 - 1.50 mg/dL 08/04/2024 7:07 AM EST [facility] Sodium 138 135 - 145 mMol/L 08/04/2024 7:07 AM [facility] Potassium 4.3 3.5 - 5.0 mMol/L 08/04/2024 7:07 AM [facility] Chloride 107 98 - 107 mMol/L 08/04/2024 7:07 AM [facility] Carbon Dioxide 23 22 - 31 mMol/L 08/04/2024 7:07 AM [facility] Anion Gap 8 5 - 15 mMol/L 08/04/2024 7:07 AM [facility] Calcium 8.5 8.5 - 10.5 mg/dL 08/04/2024 7:07 AM [facility] Est Glomerular Filtration Rate - Male 74 mL/min/1. 73 m?? 08/04/2024 7:07 AM [facility] Comment: This [...] AM EST Bridgette Stauffer MD CHEMISTRY ORDERABLES [facility] [place] [address] * (ABNORMAL) CBC (with Diff) (08/03/2024 5:16 AM EST) White Blood Cell 7.85 4.00 - 9.50 x10(3)/mc L 08/03/2024 5:29 AM [facility] Red Blood Cell 4.43(L) 4.58 - 5.54 x10(6)/mc L 08/03/2024 5:29 AM [facility] Hemoglobin 11.8(L) 13.7 - 16.5 g/dL 08/03/2024 5:29 AM [facility] Hematocrit 35.9(L) 40.5 - 48.5 % [...] EST Bridgette Stauffer MD HEMATOLOGY ORDERABLE S [facility] [place] [address] * Magnesium (08/03/2024 5:16 AM EST) Magnesium 0.89 0.69 - 1.07 mMol/L 08/03/2024 5:56 AM [facility] Blood VENOUS BLOOD SPECIMEN / Unknown Venipuncture / Unknown 08/03/2024 5:16 AM EST 08/03/2024 5:23 AM EST Bridgette Stauffer MD CHEMISTRY ORDERABLES [facility] [place] [address] * (ABNORMAL) Basic Metabolic Panel (08/03/2024 5:16 AM EST) Glucose 98 65 - 199 mg/dL 08/03/2024 5:56 AM [facility] Comment:Glucose Concentratio n >=200 mg/dL plus symptoms is consistent with Diabetes Mellitus. Blood Urea Nitrogen 16 10 - 20 mg/dL 08/03/2024 5:56 AM [facility] Creatinine 0.85 0.80 - 1.50 mg/dL 08/03/2024 5:56 AM EST [facility] Sodium 137 135 - [...] Stauffer MD CHEMISTRY ORDERABLES Performing Organization Address [facility]/ZIP Co de Phone Number [facility] [place] [address] * POC, GLUCOSE (08/02/2024 7:47 AM EST) Glucometer, POC 89 65 - 199 mg/dL 08/02/2024 7:47 AM EST [facility] Comment:Supplemental ranges: <140 mg/dL before meals <180 mg/dL all other times of the day. Blood CAPILLARY BLOOD / Unknown 08/02/2024 7:47 AM EST 08/02/2024 7:47 AM EST Krystal Parker MD POINT OF CARE TEST O RDERABLES Performing Organization Address [facility] Co de Phone Number [facility] [place] [address] * (ABNORMAL) CBC (with Diff) (08/02/2024 4:20 AM EST) White Blood Cell 8.51 4.00 - 9.50 x10(3)/mc L 08/02/2024 4:50 AM EST [facility] Red Blood Cell 4.41(L) 4.58 - 5.54 x10(6)/mc L 08/02/2024 4:50 AM EST [facility] Hemoglobin 12.2(L) 13.7 - 16.5 g/dL 08/02/2024 4:50 AM EST [facility] Hematocrit 35.8(L) 40.5 - [...] - 0.40 x10(3)/mc L 08/02/2024 4:50 AM [facility] Basophil % 0.4 % 08/02/2024 4:50 [...] EST Bridgette Stauffer MD HEMATOLOGY ORDERABLE S [facility] [place] [address] * Magnesium (08/02/2024 4:20 AM EST) Magnesium 0.79 0.69 - 1.07 mMol/L 08/02/2024 5:06 AM [facility] Blood VENOUS BLOOD SPECIMEN / Unknown Venipuncture / Unknown 08/02/2024 4:20 AM EST 08/02/2024 4:37 AM EST Bridgette Stauffer MD CHEMISTRY ORDERABLES [facility] [place] [address] * (ABNORMAL) Basic Metabolic Panel (08/02/2024 4:20 [...] Stauffer MD CHEMISTRY ORDERABLES Performing Organization Address [facility] Co de Phone Number [facility] [place] [address] * Potassium (08/01/2024 8:39 PM EST) Potassium 4.0 3.5 - 5.0 mMol/L 08/01/2024 9:21 PM EST [facility] Blood VENOUS BLOOD SPECIMEN / Unknown Venipuncture / Unknown 08/01/2024 8:39 PM EST 08/01/2024 8:51 PM EST Jay Silverio MD CHEMISTRY ORDERABL ES Performing Organization Address [facility] Phone Number [facility] [place] [address] * POC, GLUCOSE (08/01/2024 8:35 PM EST) Glucometer, POC 112 65 - 199 mg/dL 08/01/2024 8:36 PM EST [facility] Comment:Supplemental ranges: <140 mg/dL before meals <180 mg/dL all other times of the day. Blood CAPILLARY BLOOD / Unknown 08/01/2024 8:35 PM EST 08/01/2024 8:36 PM EST Krystal Parker MD POINT OF CARE TEST O RDERABLES Performing Organization Address [facility] Co de Phone Number [facility] [place] [address] * POC, GLUCOSE (08/01/2024 4:55 PM EST) Glucometer, POC 99 65 - 199 mg/dL 08/01/2024 4:56 PM EST [facility] Comment:Supplemental ranges: <140 mg/dL before meals <180 mg/dL all other times of the day. Blood CAPILLARY BLOOD / Unknown 08/01/2024 4:55 PM EST 08/01/2024 4:56 PM EST Krystal Parker MD POINT OF CARE TEST O JOSH Performing Organization Address [facility] Co de Phone Number [facility] [place] [address] * POC, GLUCOSE (08/01/2024 12:42 PM EST) Glucometer, POC 130 65 - 199 mg/dL 08/01/2024 12:43 PM EST [facility] Comment:Supplemental ranges: <140 mg/dL before meals <180 mg/dL all other times of the day. Blood CAPILLARY BLOOD / Unknown 08/01/2024 12:42 PM EST 08/01/2024 12:43 PM EST Krystal Parker MD POINT OF CARE TEST O JOSH Performing Organization Address [facility] Co de Phone Number [facility] [place] [address] * (ABNORMAL) Cooximetry, POC (08/01/2024 10:45 AM EST) pO2, Coox 32 mmHg 08/01/2024 10:48 AM [facility] Hemoglobin, Coox 12.9(L) 13.7 - 16.5 g/dL 08/01/2024 10:48 AM EST [facility] Oxyhemoglobin, Coox 66.7 % 08/01/2024 10:48 AM [facility] Carboxyhemoglo bin, Coox 1.1 % 08/01/2024 10:48 AM [facility] Comment: Nonsmokers: 0.5-1.5% COHB ?? Smokers: Variable ??but usually less than 10% ?? Toxic: 20-30% COHB ?? Lethal: Greater than 60% COHB Methemoglobin, Coox 0.3 <=1.5 % 08/01/2024 10:48 AM EST [facility] Blood (Mixed Venous) 08/01/2024 10:45 AM EST 08/01/2024 10:48 AM EST Krystal Parker MD POINT OF CARE TEST O RDERABLES Performing Organization Address [facility]/ZIP Co de Phone Number [facility] [place] [address] * Potassium (08/01/2024 8:20 AM EST) Potassium 4.0 3.5 - 5.0 mMol/L 08/01/2024 10:17 AM EST [facility] Blood ARTERIAL BLOOD / Unknown Venipuncture / Unknown 08/01/2024 8:20 AM EST 08/01/2024 8:30 AM EST Jay Silverio MD CHEMISTRY ORDERABL ES Performing Organization Address [facility] Co de Phone Number [facility] [place] [address] * POC, GLUCOSE (08/01/2024 7:44 AM EST) Glucometer, POC 86 65 - 199 mg/dL 08/01/2024 7:44 AM EST [facility] Comment:Supplemental ranges: <140 mg/dL before meals <180 mg/dL all other times of the day. Blood CAPILLARY BLOOD / Unknown 08/01/2024 7:44 AM EST 08/01/2024 7:44 AM EST Krystal Parker MD POINT OF CARE TEST O RDERABLES Performing Organization Address [facility]/ZIP Co de Phone Number [facility] [place] [address] * (ABNORMAL) CBC (with Diff) (08/01/2024 4:18 AM EST) White Blood Cell 8.51 4.00 - 9.50 x10(3)/mc L 08/01/2024 4:53 AM EST [facility] Red Blood Cell 4.12(L) 4.58 - 5.54 x10(6)/mc L 08/01/2024 4:53 AM [facility] Hemoglobin 11.2(L) 13.7 - 16.5 g/dL 08/01/2024 4:53 AM [facility] Hematocrit 33.8(L) 40.5 - 48.5 % [...] EST Bridgette Stauffer MD HEMATOLOGY ORDERABLE S [facility] [place] [address] * Magnesium (08/01/2024 4:18 AM EST) Magnesium 0.74 0.69 - 1.07 mMol/L 08/01/2024 5:00 AM [facility] Blood VENOUS BLOOD SPECIMEN / Unknown Venipuncture / Unknown 08/01/2024 4:18 AM EST 08/01/2024 4:29 AM EST Bridgette Stauffer MD CHEMISTRY ORDERABLES [facility] [place] [address] * (ABNORMAL) Basic Metabolic Panel (08/01/2024 4:18 [...] Stauffer MD CHEMISTRY ORDERABLES Performing Organization Address [facility] Co de Phone Number [facility] [place] [address] * POC, GLUCOSE (07/31/2024 8:41 PM EST) [facility] Signature Glucometer, POC 73 65 - 199 mg/dL 07/31/2024 8:41 PM EST [facility] Comment:Supplemental ranges: <140 mg/dL before meals <180 mg/dL all other times of the day. Blood CAPILLARY BLOOD / Unknown 07/31/2024 8:41 PM EST 07/31/2024 8:41 PM EST Krystal Parker MD POINT OF CARE TEST O RDERABLES Performing Organization Address [facility] Co de Phone Number [facility] [place] [address] * CARDIAC CATHETERIZATION (07/31/2024 5:53 PM EST) Anatomical Region Laterality Modality Other Narrative 08/01/2024 12:37 PM EST ?[facility] ? Cardiac Catheterization/Intervention Report ? Patient Name: Korey Montoya. ? Procedure Date: 07/31/2024 ? A #: [id number] ? Primary Physician: Janelle, Maldonado T ? Case #: [id number] ? File Name: [id number] ? Catheterization Order Number: [id number] ? [facility] ? Final Report [place], [place] ? Patient Name: ? Korey P. Montoya ?ID#: ?[id number] ? : ?1950 ? Procedure Date: ? July 31, 2024 ?Case #: ? [id number] ? Room: ? 1 ? Case Physician: [...] ? Comments: ?Impella removed from the right PROBLEM MANAGER with deployment of Perclose and ?Angioseal. [...] Procedure Note Maldonado Luis MD - 08/01/2024 [facility] Cardiac Catheterization/Intervention Report Patient Name: Korey MontoyaToby Procedure Date: 07/31/2024 A #: [id number] Primary Physician: Maldonado Luis Case #: [id number] File Name: [id number] Catheterization Order Number: [id number] [facility] FinalReport [place], [place] Patient Name: Korey Montoya ID#:[id number] :1950 Procedure Date: July 31, 2024 Case [...] as ASA Class IV. The [facility] clinical frailtyscale is 4: Vulnerable. Diagnostic [...] procedures. Comments: Impella removed from the right PROBLEM MANAGER with deployment of Perclose and Angioseal. [...] * POC, GLUCOSE (07/31/2024 11:04 AM EST) [facility] Glucometer, POC 82 65 - 199 mg/dL 07/31/2024 11:04 AM EST [facility] Comment:Supplemental ranges: <140 mg/dL before meals <180 mg/dL all other times of the day. Blood CAPILLARY BLOOD / Unknown 07/31/2024 11:04 AM EST 07/31/2024 11:04 AM EST Krystal Parker MD POINT OF CARE TEST O RDERABLES [facility] [place] [address] * (ABNORMAL) Blood Gas, Arterial POC (07/31/2024 8:29 AM EST) [facility] pH, Arterial 7.48(H) 7.35 - 7.45 07/31/2024 8:30 AM EST [facility] PCO2, Arterial 29(L) 35 - 45 mmHg 07/31/2024 8:30 AM EST [facility] PO2, Arterial 71(L) 85 - 104 mmHg 07/31/2024 8:30 AM EST [facility] Bicarbonate, Arterial 20.6 20.0 - 26.0 mmol/L 07/31/2024 8:30 AM EST [facility] Base Excess, Arterial -3.0 [...] 65 - 199 mg/dL 07/31/2024 8:30 AM [facility] Comment:Glucose Concentratio n >=200 mg/dL plus symptoms is consistent with Diabetes Mellitus. Blood ARTERIAL BLOOD / Unknown 07/31/2024 8:29 AM EST 07/31/2024 8:30 AM EST Krystal Parker MD POINT OF CARE TEST O JOSH Performing Organization Address City/[facility]/ZIP Co de Phone Number [facility] [place] [address] * POC, GLUCOSE (07/31/2024 7:47 AM EST) Pathologist [facility] Glucometer, POC 82 65 - 199 mg/dL 07/31/2024 7:53 AM EST [facility] Comment:Supplemental ranges: <140 mg/dL before meals <180 mg/dL all other times of the day. Blood CAPILLARY BLOOD / Unknown 07/31/2024 7:47 AM EST 07/31/2024 7:53 AM EST Krystal Parker MD POINT OF CARE TEST O JOSH Performing Organization Address [facility] Co de Phone Number [facility] [place] [address] * (ABNORMAL) CBC (with Diff) (07/31/2024 1:08 AM EST) [facility] White Blood Cell 10.25(H) 4.00 - 9.50 [...] 0.40 x10(3)/mc L 07/31/2024 1:28 AM EST [facility] Basophil % 0.3 % 07/31/2024 1:28 AM EST [facility] Baso Absolute <0.04 0.00 - 0.10 x10(3)/mc L 07/31/2024 1:28 AM EST [facility] Immature Gran % 0.2 % 1:28 AM EST [facility] Immature Gran Absolute <0.04 0.00 - 0.04 x10(3)/mc L 07/31/2024 1:28 AM EST [facility] Blood VENOUS BLOOD SPECIMEN / Unknown Venipuncture / Unknown 07/31/2024 1:08 AM EST 07/31/2024 1:18 AM EST Bridgette Stauffer MD HEMATOLOGY ORDERABLE S Performing Organization Address City/[facility]/ZIP Co de Phone Number [facility] [place] [address] * Magnesium (07/31/2024 1:08 AM EST) Magnesium 0.89 0.69 - 1.07 mMol/L 07/31/2024 1:46 AM EST [facility] Blood VENOUS BLOOD SPECIMEN / Unknown Venipuncture / Unknown 07/31/2024 1:08 AM EST 07/31/2024 1:18 AM EST Bridgette Stauffer MD CHEMISTRY ORDERABLES [facility] [place] [address] * (ABNORMAL) Basic Metabolic Panel (07/31/2024 1:08 AM EST) Glucose 97 65 - 199 mg/dL 07/31/2024 1:46 AM EST [facility] Comment:Glucose Concentratio n >=200 mg/dL plus symptoms is consistent with Diabetes Mellitus. Blood Urea Nitrogen 11 10 - 20 mg/dL 07/31/2024 1:46 AM [facility] Creatinine 0.96 0.80 - 1.50 mg/dL 07/31/2024 1:46 AM EST [facility] Sodium 140 135 - 145 mMol/L 07/31/2024 1:46 AM [facility] Potassium 4.1 3.5 - 5.0 mMol/L 07/31/2024 1:46 AM EST [facility] Chloride 110(H) 98 - 107 mMol/L 07/31/2024 1:46 AM [facility] Carbon Dioxide 24 22 - 31 [...] AM EST Bridgette Stauffer MD CHEMISTRY ORDERABLES [facility] [place] [address] * (ABNORMAL) Hepatic Function Panel (07/31/2024 1:08 AM EST) Albumin 3.1(L) 3.2 - 5.2 g/dL 07/31/2024 1:46 AM [facility] Aspartate Aminotransferase 192(H) <=39 unit/L 07/31/2024 1:46 AM [facility] Alanine Aminotransferase 59(H) 0 - 55 unit/L 07/31/2024 1:46 AM [facility] Alkaline Phosphatase 46 40 - 130 [...] AM EST Krystal Parker MD CHEMISTRY ORDERABLES [facility] [place] [address] * POC, GLUCOSE (07/30/2024 8:03 PM EST) Glucometer, POC 86 65 - 199 mg/dL 07/30/2024 8:03 PM [facility] Comment:Supplemental ranges: <140 mg/dL before meals <180 mg/dL all other times of the day. Blood CAPILLARY BLOOD / Unknown 07/30/2024 8:03 PM EST 07/30/2024 8:03 PM EST Krystal Parker MD POINT OF CARE TEST O RDERABLES Performing Organization Address City/[facility]/ZIP Co de Phone Number [facility] [place] [address] * Potassium (07/30/2024 8:03 PM EST) Potassium 3.8 3.5 - 5.0 mMol/L 07/30/2024 9:13 PM EST [facility] Blood VENOUS BLOOD SPECIMEN / Unknown Venipuncture / Unknown 07/30/2024 8:03 PM EST 07/30/2024 8:22 PM EST Jay Silverio MD CHEMISTRY ORDERABL ES Performing Organization Address [facility] Co de Phone Number [facility] [place] [address] * POC, GLUCOSE (07/30/2024 6:23 PM EST) Glucometer, POC 93 65 - 199 mg/dL 07/30/2024 6:24 PM EST [facility] Comment:Supplemental ranges: <140 mg/dL before meals <180 mg/dL all other times of the day. Blood CAPILLARY BLOOD / Unknown 07/30/2024 6:23 PM EST 07/30/2024 6:24 PM EST Krystal Parker MD POINT OF CARE TEST O RDERABLES Performing Organization Address [facility]/ZIP Co de Phone Number [facility] [place] [address] * POC, GLUCOSE (07/30/2024 5:08 PM EST) Glucometer, POC 78 65 - 199 mg/dL 07/30/2024 5:08 PM EST [facility] Comment:Supplemental ranges: <140 mg/dL before meals <180 mg/dL all other times of the day. Blood CAPILLARY BLOOD / Unknown 07/30/2024 5:08 PM EST 07/30/2024 5:08 PM EST Krystal Parker MD POINT OF CARE TEST O RDERABLES Performing Organization Address [facility]/ZIP Co de Phone Number [facility] [place] [address] * (ABNORMAL) Phosphorus (07/30/2024 3:08 PM EST) Phosphorus 2.1(L) 2.5 - 4.5 mg/dL 07/30/2024 3:58 PM EST [facility] Blood VENOUS BLOOD SPECIMEN / Unknown Venipuncture / Unknown 07/30/2024 3:08 PM EST 07/30/2024 3:12 PM EST Jay Silverio MD CHEMISTRY ORDERABL ES Performing Organization Address [facility] Co de Phone Number [facility] [place] [address] * Magnesium (07/30/2024 3:08 PM EST) Magnesium 0.90 0.69 - 1.07 mMol/L 07/30/2024 3:58 PM EST [facility] Blood VENOUS BLOOD SPECIMEN / Unknown Venipuncture / Unknown 07/30/2024 3:08 PM EST 07/30/2024 3:12 PM EST Jay Silverio MD CHEMISTRY ORDERABL ES Performing Organization Address City/[facility]/ZIP Co de Phone Number [facility] [place] [address] * (ABNORMAL) Basic Metabolic Panel (07/30/2024 3:08 PM EST) Glucose 105 65 - 199 mg/dL 07/30/2024 4:17 PM EST [facility] Comment:Glucose Concentratio n >=200 mg/dL plus symptoms is consistent with Diabetes Mellitus. Blood Urea Nitrogen 13 10 - 20 mg/dL 07/30/2024 4:17 PM EST [facility] Creatinine 1.01 0.80 - 1.50 mg/dL 07/30/2024 4:17 PM EST [facility] Sodium 141 135 - 145 mMol/L 07/30/2024 4:17 PM EST [facility] Potassium 3.4(L) 3.5 - 5.0 mMol/L 07/30/2024 4:17 PM [facility] Chloride 109(H) 98 - 107 mMol/L 07/30/2024 4:17 PM [facility] Carbon Dioxide 21(L) 22 - 31 mMol/L 07/30/2024 4:17 PM EST [facility] Anion Gap 11 5 - 15 mMol/L 07/30/2024 4:17 PM [facility] Calcium 7.9(L) 8.5 - 10.5 mg/dL 07/30/2024 4:17 PM [facility] Est Glomerular Filtration Rate - Male 79 mL/min/1. 73 m?? 07/30/2024 4:17 PM [facility] Comment: This [...] EST Jay Silverio MD CHEMISTRY ORDERABL ES [facility] [place] [address] * ECHO LMTD W CONTRAST W LMTD SPEC DOPP COLOR DOPP (07/30/2024 11:42 AM EST) Anatomical Region Laterality Modality Cardiac Other 07/30/2024 10:2 2 AM EST Narrative 07/30/2024 12:34 PM EST [address] [place] [address] ? Echocardiogram Report Name: KOREY MONTOYA ? Study Date: 07/30/2024 10:22 AMBP: 124/66 mmHg : 1950 ? Height: 168 cm ? Account: [id number] Age: 74 yrs ? Weight: 65 kg [...] Compared to the overnight study by the operations manager assistant fellow the impella position is stable. 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 Procedure Limited - 32533. Image enhancement Definity was used for both [...] Note Kathleen Banda MD - 07/30/2024 [address] [place] [address] Echocardiogram Report Name: KOREY MONTOYA Study Date: 410:22 AMBP: 124/66 mmHg : 1950 Height: 168 cm Account: [id number] Age: 74 yrs Weight: 65 kg Gender: [...] Compared to the overnight study by the operations manager assistant fellow the impella positionis stable. The global left ventricular systolic function has improvedpredominantly via recruitment outside the LAD territory which remains akinetic. Procedure Limited - 42086. Image enhancement Definity was used for both [...] - 199 mg/dL 07/30/2024 11:17 AM EST [facility] Comment:Supplemental ranges: <140 mg/dL before meals <180 mg/dL all other times of the day. Blood CAPILLARY BLOOD / Unknown 07/30/2024 11:17 AM EST 07/30/2024 11:17 AM EST Jay Silverio MD POINT OF CARE TEST ORDERABLES [facility] [place] [address] * (ABNORMAL) Blood Gas, Arterial POC (07/30/2024 8:16 AM EST) pH, Arterial 7.44 7.35 - 7.45 07/30/2024 8:17 AM EST [facility] PCO2, Arterial 29(L) 35 - 45 mmHg 07/30/2024 8:17 AM EST [facility] PO2, Arterial 109(H) 85 - 104 mmHg 07/30/2024 8:17 AM EST [facility] Bicarbonate, Arterial 19.4(L) 20.0 [...] OF CARE TEST ORDERABLES Performing Organization Address City/[facility]/ZIP Co de Phone Number [facility] [place] [address] * (ABNORMAL) Troponin - Single (07/30/2024 8:09 AM EST) Troponin-T, High Sensitivity 8,651(H) <=22 ng/L 07/30/2024 9:06 AM EST [facility] Comment: This patient's troponin [...] value can be found in the [facility] Laboratory Test Catalog Troponin - [email or web address]/[email or web address] Reference: Fourth [place] Definition of Myocardial Infarction. Journal of the [place] [employer] 2018;72:2390-5823 Blood VENOUS BLOOD SPECIMEN / Unknown Venipuncture / Unknown 07/30/2024 8:09 AM EST 07/30/2024 8:26 AM EST Jay Silverio MD CHEMISTRY ORDERABL ES Performing Organization Address City/[facility]/ZIP Co de Phone Number [facility] [place] [address] * POC, GLUCOSE (07/30/2024 7:40 AM EST) Pathologist [facility] Glucometer, POC 111 65 - 199 mg/dL 07/30/2024 7:40 AM EST [facility] Comment:Supplemental ranges: <140 mg/dL before meals <180 mg/dL all other times of the day. Blood CAPILLARY BLOOD / Unknown 07/30/2024 7:40 AM EST 07/30/2024 7:40 AM EST Jay Silverio MD POINT OF CARE TEST ORDERABLES [facility] [place] [address] * (ABNORMAL) CBC (with Diff) (07/30/2024 2:11 AM EST) [facility] White Blood Cell 11.25(H) 4.00 - 9.50 [...] Gran % 0.4 % 2:33 AM EST [facility] Immature Gran Absolute 0.05(H) 0.00 - 0.04 x10(3)/mc L 07/30/2024 2:33 AM [facility] Blood VENOUS BLOOD SPECIMEN / Unknown Venipuncture / Unknown 07/30/2024 2:11 AM EST 07/30/2024 2:22 AM EST Bridgette Stauffer MD HEMATOLOGY ORDERABLE S Performing Organization Address [facility]/ZIP Co de Phone Number [facility] [place] [address] * Magnesium (07/30/2024 2:11 AM EST) Pathologist [facility] Magnesium 1.01 0.69 - 1.07 mMol/L 07/30/2024 2:51 AM [facility] Blood VENOUS BLOOD SPECIMEN / Unknown Venipuncture / Unknown 07/30/2024 2:11 AM EST 07/30/2024 2:22 AM EST Bridgette Stauffer MD CHEMISTRY ORDERABLES Performing Organization Address City/[facility] Co de Phone Number [facility] [place] [address] * (ABNORMAL) Basic Metabolic Panel (07/30/2024 2:11 [...] - 5.0 mMol/L 07/30/2024 2:51 AM EST [facility] Chloride 105 98 - 107 mMol/L 07/30/2024 2:51 AM [facility] Carbon Dioxide 19(L) 22 - 31 mMol/L 07/30/2024 2:51 AM [facility] Anion Gap 11 5 - 15 mMol/L 07/30/2024 2:51 AM [facility] Calcium 7.7(L) 8.5 - 10.5 mg/dL 07/30/2024 2:51 AM EST [facility] Est Glomerular Filtration Rate - Male 91 mL/min/1. 73 m?? 07/30/2024 2:51 AM [facility] Comment: This [...] AM EST Bridgette Stauffer MD CHEMISTRY ORDERABLES [facility] [place] [address] * (ABNORMAL) Cooximetry, POC (07/30/2024 1:00 AM EST) pO2, Coox 28 mmHg 07/30/2024 1:03 AM [facility] Hemoglobin, Coox 12.7(L) 13.7 - 16.5 g/dL 07/30/2024 1:03 AM [facility] Oxyhemoglobin, Coox 54.9 % 07/30/2024 1:03 [...] OF CARE TEST ORDERABLES Performing Organization Address City/State/[facility] Co de Phone Number [facility] [place] [address] * (ABNORMAL) Blood Gas, Arterial POC (07/30/2024 [...] Silverio MD POINT OF CARE TEST ORDERABLES [facility] [place] [address] * (ABNORMAL) Troponin - Single (07/29/2024 10:31 PM EST) Troponin-T, High Sensitivity >10,000(H ) <=22 ng/L 07/29/2024 11:03 PM EST [facility] Comment: This patient's troponin [...] value can be found in the [facility] Laboratory Test Catalog Troponin - https://[email or web address]-.testcatalog.org/catalogs/565/files/66583 Reference: Fourth [place] Definition of Myocardial Infarction. Journal of the [place] [employer] 2018;72:9991-2727 Blood VENOUS BLOOD SPECIMEN / Unknown Venipuncture / Unknown 07/29/2024 10:31 PM EST 07/29/2024 10:36 PM EST Yrn Ward MD CHEMISTRY ORDERABL ES [facility] [place] [address] * Potassium (07/29/2024 8:11 PM EST) Potassium 4.1 3.5 - 5.0 mMol/L 07/29/2024 8:52 PM EST [facility] Blood VENOUS BLOOD SPECIMEN / Unknown Venipuncture / Unknown 07/29/2024 8:11 PM EST 07/29/2024 8:16 PM EST Jay Silverio MD CHEMISTRY ORDERABL ES Performing Organization Address City/[facility]/ZIP Co de Phone Number [facility] [place] [address] * (ABNORMAL) Troponin - Single (07/29/2024 8:11 PM EST) Troponin-T, High Sensitivity >10,000(H ) <=22 ng/L 07/29/2024 8:52 PM EST [facility] Comment: This patient's troponin [...] value can be found in the [facility] Laboratory Test Catalog Troponin - https://[facility]-.testcatalog.org/catalogs/565/files/15163 Reference: Fourth [place] Definition of Myocardial Infarction. Journal of the [place] College [employer] 2018;72:1791-6817 Blood VENOUS BLOOD SPECIMEN / Unknown Venipuncture / Unknown 07/29/2024 8:11 PM EST 07/29/2024 8:16 PM EST Jay Silverio MD CHEMISTRY ORDERABL ES [facility] [place] [address] * (ABNORMAL) Phosphorus (07/29/2024 8:11 PM EST) Phosphorus 2.1(L) 2.5 - 4.5 mg/dL 07/29/2024 8:52 PM EST [facility] Blood VENOUS BLOOD SPECIMEN / Unknown Venipuncture / Unknown 07/29/2024 8:11 PM EST 07/29/2024 8:16 PM EST Jay Silveroi MD CHEMISTRY ORDERABL ES Performing Organization Address City/[facility]/ZIP Co de Phone Number [facility] [place] [address] * POC, GLUCOSE (07/29/2024 8:09 PM EST) Glucometer, POC 142 65 - 199 mg/dL 07/29/2024 8:09 PM EST [facility] Comment:Supplemental ranges: <140 mg/dL before meals <180 mg/dL all other times of the day. Blood CAPILLARY BLOOD / Unknown 07/29/2024 8:09 PM EST 07/29/2024 8:09 PM EST Jay Silverio MD POINT OF CARE TEST ORDERABLES Performing Organization Address City/[facility]/ZIP Co de Phone Number [facility] [place] [address] * ABORH RECHECK (07/29/2024 6:43 PM EST) ABORH Recheck AB POSITIVE 07/29/2024 10:13 PM EST [facility] Blood VENOUS BLOOD SPECIMEN / Unknown Venipuncture / Unknown 07/29/2024 6:43 PM EST 07/29/2024 7:15 PM EST Jay Silverio MD BLOOD BANK LAB ORD ERABLES Performing Organization Address City/[facility]/ZIP Co de Phone Number [facility] [place] [place] [address] * POC, GLUCOSE (07/29/2024 5:57 PM EST) Glucometer, POC 166 65 - 199 mg/dL 07/29/2024 5:57 PM EST [facility] Comment:Supplemental ranges: <140 mg/dL before meals <180 mg/dL all other times of the day. Blood CAPILLARY BLOOD / Unknown 07/29/2024 5:57 PM EST 07/29/2024 5:57 PM EST Jay Silverio MD POINT OF CARE TEST ORDERABLES Performing Organization Address City/[facility]/ZIP Co de Phone Number [facility] [place] [address] * Type and screen ([facility]/JONG/MAGALIE) (07/29/2024 5:56 PM EST) [facility] ABORH Type AB POSITIVE 07/29/2024 9:44 PM EST [facility] PATIENT HISTORY Not Found 07/29/2024 9:44 PM EST [facility] Expires at [id number] on: 08/01/2024 07/29/2024 9:44 PM EST [facility] ANTIBODY SCREEN AUTOMATED Negative 07/29/2024 9:44 PM EST [facility] T&S only valid at [facility] 07/29/2024 9:44 PM EST [facility] Blood VENOUS BLOOD SPECIMEN / Unknown Venipuncture / Unknown 07/29/2024 5:56 PM EST 07/29/2024 6:07 PM EST Narrative [facility] - 07/29/2024 9:44 PM EST This Type and Screen result is only valid at the [facility] Hospital Jay Silverio MD BLOOD BANK LAB ORD ERABLES Performing Organization Address City/[facility]/ZIP Co de Phone Number [facility] [place] [place] [address] * (ABNORMAL) Troponin - Single (07/29/2024 4:52 PM EST) [facility] Troponin-T, High Sensitivity >10,000(H ) <=22 ng/L 07/29/2024 5:25 PM EST [facility] Comment: This patient's troponin [...] value can be found in the [facility] Laboratory Test Catalog Troponin - https://[email or web address]-.testcatalog.org/catalogs/565/files/87203 Reference: Fourth [place] Definition of Myocardial Infarction. Journal of the [place] College [employer]iology 2018;72:0076-4582 Blood VENOUS BLOOD SPECIMEN / Unknown Venipuncture / Unknown 07/29/2024 4:52 PM EST 07/29/2024 4:57 PM EST Jay Silverio MD CHEMISTRY ORDERABL ES Performing Organization Address City/State/[facility] Co de Phone Number [facility] [place] [address] * EKG 12 Lead (07/29/2024 4:21 PM EST) Ventricular rate 72 BPM MUSE SYSTEM Atrial Rate 72 BPM MUSE SYSTEM P-R Interval 168 ms MUSE SYSTEM QRS Duration 82 ms MUSE SYSTEM Q-T Interval 392 ms MUSE SYSTEM QTC Calculated (Bezet) 429 ms MUSE SYSTEM Calculated P [place] 71 degrees MUSE SYSTEM Calculated R [place] 77 degrees MUSE SYSTEM Calculated T [place] 28 degrees MUSE SYSTEM INTERPRETATION Sinus rhythm with Premature supraventricular complexes and Occasional Premature ventricular complexes Low voltage QRS 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) Lateral injury pattern ACUTE NV / STEMI Abnormal ECG When compared with [...] TEST ORDERABLES Performing Organization Address City/State/ZIP Co tn Phone Number [facility] [place] [address] * POC, GLUCOSE (07/29/2024 4:19 PM EST) [facility] Signature Glucometer, POC 185 65 - 199 mg/dL 07/29/2024 4:19 PM [facility] Comment:Supplemental ranges: <140 mg/dL before meals <180 mg/dL all other times of the day. Blood CAPILLARY BLOOD / Unknown 07/29/2024 4:19 PM EST 07/29/2024 4:19 PM EST Jay Silverio MD POINT OF CARE TEST ORDERABLES [facility] [place] [address] * Blood culture (07/29/2024 4:08 PM EST) Blood Culture No growth at 120 hours 08/03/2024 5:01 PM EST [facility] Blood VENOUS BLOOD SPECIMEN / Unknown Venipuncture / Unknown 07/29/2024 4:08 PM EST 07/29/2024 4:15 PM EST Jay Silverio MD MICROBIOLOGY - BLO OD ORDERABLES Performing Organization Address [facility] Co de Phone Number [facility] [place] [address] * Blood culture (07/29/2024 4:08 PM EST) Blood Culture No growth at 120 hours 08/03/2024 5:01 PM EST [facility] Blood VENOUS BLOOD SPECIMEN / Unknown Venipuncture / Unknown 07/29/2024 4:08 PM EST 07/29/2024 4:26 PM EST Jay Silverio MD MICROBIOLOGY - BLO OD ORDERABLES Performing Organization Address [facility] Co de Phone Number [facility] [place] [address] * XR Chest One View (07/29/2024 2:30 PM EST) WORKSTATION ID [id number] DH RAD Anatomical Region Laterality Modality Chest [...] who have questions please contact the health professional healthcare representative that requested your imaging first. ? Narrative [...] patients who have questions please contactthe health professional healthcare representative that requested your imaging first. Vahe Marvin MD IMG DX ORDERABLES * (ABNORMAL) APTT (07/29/2024 2:03 PM EST) Partial Thromboplastin Time >160(HHH) 25 - 37 sec 07/29/2024 2:56 PM EST [facility] Blood VENOUS BLOOD SPECIMEN / Unknown Venipuncture / Unknown 07/29/2024 2:03 PM EST 07/29/2024 2:13 PM EST Vahe Marvin MD HEMATOLOGY ORDERABLE S Performing Organization Address [facility]/ZIP Co de Phone Number [facility] [place] [address] * (ABNORMAL) Prothrombin Time (07/29/2024 2:03 PM EST) Prothrombin Time 14.2(H) 9.4 - 12.5 sec 07/29/2024 2:56 PM EST [facility] International Normalization Ratio 1.3 <=4.9 07/29/2024 2:56 PM EST [facility] Comment: An INR < [...] MD HEMATOLOGY ORDERABLE S Performing Organization Address City/[facility]/ZIP Co de Phone Number [facility] [place] [address] * CRP, acute inflammation (07/29/2024 2:03 PM EST) C-Reactive Protein <3.0 <=4.9 mg/L 07/29/2024 2:52 PM EST [facility] Blood VENOUS BLOOD SPECIMEN / Unknown Venipuncture / Unknown 07/29/2024 2:03 PM EST 07/29/2024 2:14 PM EST Vahe Marvin MD CHEMISTRY ORDERABLES [facility] [place] [address] * Lipid Panel (Reflex Direct LDL) (07/29/2024 2:03 PM EST) [facility] Signature Cholesterol, Total 133 mg/dL 07/29/2024 [...] ACC/AHA Guidelines (most recently [facility] 06/15/22): * For individuals with atherosclerotic [...] Marvin MD CHEMISTRY ORDERABLES Performing Organization Address City/[facility]/ZIP Co de Phone Number [facility] [place] [address] * TSH Christine (07/29/2024 2:03 PM EST) Thyroid Stimulating Hormone 0.70 0.27 - 4.20 mcIU/mL 07/29/2024 2:52 PM EST [facility] Blood VENOUS BLOOD SPECIMEN / Unknown Venipuncture / Unknown 07/29/2024 2:03 PM EST 07/29/2024 2:14 PM EST Vahe Marvin MD CHEMISTRY ORDERABLES Performing Organization Address [facility] Co de Phone Number [facility] [place] [address] * Hemoglobin A1c (07/29/2024 2:03 PM EST) Hemoglobin A1c 5.3 4.3 - 5.6 % 07/29/2024 2:41 PM EST [facility] Comment: Per ADA guidelines, [...] red blood cell turnover may not be real estate representative of glycemic control. Reference Interval: 4.3 - 5.6% 5.7 - 6.4%: Consistent with prediabetes >=6.5%: Consistent with diagnosis of diabetes mellitus Estimated Average Glucose 07/29/2024 2:41 PM EST [facility] Comment:Estimated Average Gl ucose [...] into estimated average glucose values. ??Diabetes Care 2008:31(8):5534-2336. Additional resources are available on the ADA website (diabetes.org). Vahe Marvin MD CHEMISTRY ORDERABLES [facility] [place] [address] * (ABNORMAL) CBC (with Diff) (07/29/2024 2:03 PM EST) White Blood Cell 19.50(H) 4.00 - 9.50 x10(3)/mc L 07/29/2024 2:18 PM EST [facility] Red Blood Cell 4.81 4.58 - 5.54 x10(6)/mc L 07/29/2024 2:18 PM [facility] Hemoglobin 13.1(L) 13.7 - 16.5 g/dL 07/29/2024 2:18 PM [facility] Hematocrit 40.1(L) 40.5 - 48.5 % 07/29/2024 2:18 PM [facility] Mean Cell Volume 83.4 82.9 - 93.1 fL 07/29/2024 2:18 PM [facility] Mean Cell Hemoglobin 27.2(L) 27.5 - 32.1 pg 07/29/2024 2:18 PM [facility] Mean Cell Hemoglobin Concentration 32.7 32.0 - 35.7 g/dL 07/29/2024 2:18 PM [facility] Platelet 236 145 - 357 x10(3)/mc L 07/29/2024 2:18 PM [facility] Mean Platelet Volume 10.6 7.6 - 12.9 fL 07/29/2024 2:18 PM [facility] RDW Standard Deviation 43.7 36.0 - [...] Gran % 0.5 % 2:18 PM EST [facility] Immature Gran Absolute 0.09(H) 0.00 - 0.04 x10(3)/mc L 07/29/2024 2:18 PM EST [facility] Blood VENOUS BLOOD SPECIMEN / Unknown Venipuncture / Unknown 07/29/2024 2:03 PM EST 07/29/2024 2:13 PM EST Vahe Marvin MD HEMATOLOGY ORDERABLE S Performing Organization Address City/[facility]/ZIP Co de Phone Number [facility] [place] [address] * Phosphorus (07/29/2024 2:03 PM EST) Phosphorus 2.5 2.5 - 4.5 mg/dL 07/29/2024 2:52 PM EST [facility] Blood VENOUS BLOOD SPECIMEN / Unknown Venipuncture / Unknown 07/29/2024 2:03 PM EST 07/29/2024 2:14 PM EST Vahe Marvin MD CHEMISTRY ORDERABLES Performing Organization Address [facility] Co de Phone Number [facility] [place] [address] * Magnesium (07/29/2024 2:03 PM EST) Magnesium 0.70 0.69 - 1.07 mMol/L 07/29/2024 2:52 PM EST [facility] Blood VENOUS BLOOD SPECIMEN / Unknown Venipuncture / Unknown 07/29/2024 2:03 PM EST 07/29/2024 2:14 PM EST Vahe Marvin MD CHEMISTRY ORDERABLES Performing Organization Address [facility] Co de Phone Number [facility] [place] [address] * (ABNORMAL) Comprehensive metabolic panel (07/29/2024 2:03 PM EST) Glucose 243(H) 65 - 199 mg/dL 07/29/2024 3:11 PM [facility] Comment:Glucose Concentratio n >=200 mg/dL plus symptoms is consistent with Diabetes Mellitus. Blood Urea Nitrogen 13 10 - 20 mg/dL 07/29/2024 3:11 PM [facility] Creatinine 0.88 0.80 [...] mL/min/1. 73 m?? 07/29/2024 3:11 PM EST [facility] Comment: This patient's estimated [...] PM EST Vahe Marvin MD CHEMISTRY ORDERABLES [facility] [place] [address] * (ABNORMAL) Troponin - Single (07/29/2024 2:03 PM EST) Troponin-T, High Sensitivity >10,000(H ) <=22 ng/L 07/29/2024 2:52 PM EST [facility] Comment: This patient's troponin [...] value can be found in the [facility] Laboratory Test Catalog Troponin - https://[email or web address]-.testcatalog.org/catalogs/565/files/04725 Reference: Fourth [place] Definition of Myocardial Infarction. Journal of the [place] [employer] 2018;72:6019-7244 Blood VENOUS BLOOD SPECIMEN / Unknown Venipuncture / Unknown 07/29/2024 2:03 PM EST 07/29/2024 2:14 PM EST Vahe Marvin MD CHEMISTRY ORDERABLES [facility] [place] [address] * (ABNORMAL) Blood Gas, Venous POC (07/29/2024 2:01 PM EST) pH, Venous 7.30(L) 7.32 - 7.42 07/29/2024 2:02 PM [facility] PCO2, Venous 42 38 - 58 [...] 0.3 <=1.5 % 07/29/2024 2:02 PM EST [facility] Sodium, Venous 137 135 - 145 mmol/L 07/29/2024 2:02 PM [facility] Potassium, Venous 3.6 3.5 - 5.0 mmol/L 07/29/2024 2:02 PM [facility] Chloride, Venous 103 98 - 107 mmol/L 07/29/2024 2:02 PM EST [facility] Glucose, Venous 229(H) 65 - 199 mg/dL 07/29/2024 2:02 PM [facility] Comment:Glucose Concentratio n >=200 mg/dL plus symptoms is consistent with Diabetes Mellitus. Lactate, Venous 3.1(H) 0.5 - 2.2 mmol/L 07/29/2024 2:02 PM [facility] Ionized Calcium, Venous 1.11(L) 1.15 - 1.33 mmol/L 07/29/2024 2:02 PM [facility] Blood VENOUS BLOOD SPECIMEN / Unknown 07/29/2024 2:01 PM EST 07/29/2024 2:02 PM EST Vahe Marvin MD POINT OF CARE TEST O RDERABLES Performing Organization Address City/State/[facility] Co de Phone Number [facility] [place] [address] * CARDIAC CATHETERIZATION (07/29/2024 1:20 PM EST) Anatomical Region Laterality Modality Other Narrative 07/29/2024 2:02 PM EST ?[facility] ? Cardiac Catheterization/Intervention Report ? Patient Name: Korey Montoya. ? Procedure Date: 07/29/2024 ? A #: [id number] ? Primary Physician: Shavonne, Vahe S ? Case #: [id number] ? File Name: [id number] ? Catheterization Order Number: [id number] ? [facility] ? Final Report [place], [place] ? Patient Name: ? Korey P. Montoya ?ID#: ?[id number] ? : ?1950 ? Procedure Date: ? July 29, 2024 ?Case #: ? [id number] ? Room: ? 5 ? Case Physician: [...] procedure was Emergent. The indication for ?the construction craft laborer visit is ACS less than or [...] 3.5 guiding catheter and a 3.5 Fr [place] [address] ??20 Mhz using ?Manual pullback. ??Imaging [...] ? A premounted 3.00 x 22 mm [place] (LOW) was deployed ? with a maximum [...] ??A premounted 3.00 x 08 mm [place] (LOW) ? was deployed with a maximum [...] dose administered prior to arrival in the construction craft laborer. ?Recommended anti-platelet/anti-thrombotic regimen: ?Start aspirin 81 [...] able ?to start weaning his inotropes/vasopressors. A Riley Colette catheter was ?placed demonstrating improvement in [...] ventricular assist device insertion, right heart ?catheterization, Riley (flow directed cath) insertion, access site ?angiography, vascular ultrasound, venous line / sheath insert and vascular ?closure device. ? Vahe Marvin M.D. ? Electronically Signed by: Vahe Marvin M.D. ? Report Finalized: 07/29/2024 ??13:55 ? Report Last Ammended: 09/20/2024 ??15:21 ? Procedure Note Vahe Marvin MD - 09/20/2024 [facility] Cardiac Catheterization/Intervention Report Patient Name: Korey MontoyaToby Procedure Date: 07/29/2024 A #: [id number] Primary Physician: Vahe Marvin Case #: [id number] File Name: [id number] Catheterization Order Number: [id number] [facility] FinalReport [place], [place] Patient Name: Korey Montoya ID#:[id number] :1950 Procedure Date: July 29, 2024 Case [...] as ASA Class IV. The [facility] clinical frailtyscale is 4: Vulnerable. Diagnostic Tests: Electrocardiography: EKG was assessed by ECG. EKG was Abnormal. EKG showed STDeviation >= 0.5 mm. Medications Prior to Procedure: Angiotensin II Receptor Elvis and Statin. Indications for Diagnostic Cath: The priority of the diagnostic procedure was Emergent. Theindication for the construction craft laborer visit is ACS less than or [...] 3.5 guiding catheter and a 3.5 Fr [place] [address] [place] [address] 20 Mhzusing Manual pullback. Imaging was [...] priority for the procedure was Emergent.The [facility] indication for the procedure was [...] The lesion was predilated with a 2.00mm [id number] MM balloon with a maximum inflation pressure of 12atmospheres. A premounted 3.00 x 22 mm [place] (LOW) wasdeployed with a maximum inflation pressure [...] atmospheres. A premounted 3.00 x 08 mm [place](LOW) was deployed with a maximum inflation pressure [...] dose administered prior to arrival in the construction craft laborer. Recommended anti-platelet/anti-thrombotic regimen: Start aspirin 81 [...] wereable to start weaning his inotropes/vasopressors. A Riley Colette catheterwas placed demonstrating improvement in his [...] ventricular assist device insertion, right heart catheterization, Riley (flow directed cath) insertion, access site angiography, [...] AM [facility] Potassium, POC 3.4(L) 3.5 - 5.0 [...] MD POINT OF CARE TEST O RDERABLES [facility] [place] [address] * (ABNORMAL) BLOOD GAS, POC (07/29/2024 12:12 [...] - 31 mmol/L 07/30/2024 7:30 AM EST [facility] Blood VENOUS BLOOD SPECIMEN / Unknown 07/29/2024 12:12 PM EST 07/30/2024 7:30 AM EST Vahe Marvin MD POINT OF CARE TEST O RDERABLES [facility] [place] [address] documented in this encounter Visit Diagnoses Diagnosis [...] Watson RN) 0934 (Given - Provider: Tonya Watosn RN) atorvastatin (Lipitor) tablet 80 mg 80 [...] Routine documented in this encounter Care Teams General Worker Relationship Specialty Start Date End Date Alexia Mtz, DATABASE SUPPORT [address] [place] [address] PCP - General Family Medicine 07/30/24 documented as of this encounter
--- OUTSIDE RECORDS SUMMARY | 2024-09-24 11:12 | XMS_ITS | Clinical Summary ---
Author Organization [facility] Address [facility] [place] [address] Care Team Providers Care Auditor In Charge Name Role Phone Alexia Mtz FREDRICK Primary Care Provider [phone] Allergies No known active allergies Medications Medication [...] Description 09/21/2024 External Results Non-[place] [address] 07/31/2024 4:30 PM EST - 07/31/2024 5:30 PM EST Surgery [place] [address] Maldonado Luis MD CARDIAC CATHETERIZATION 07/29/2024 6:32 PM EST - 07/29/2024 11:59 PM EST Hospital Encounter [facility] at [address] [phone] Arvin Becerra MD Discharge Disposition: Home 07/29/2024 12:00 PM EST - 07/29/2024 12:54 PM EST Surgery [place] [address] Vahe Marvin MD CARDIAC CATHETERIZATION 07/29/2024 11:45 AM EST - 08/04/2024 5:00 PM EST Hospital [place] [address] Vahe Marvin MD Dadekian, Gregory A, MD Welch, Terrence D, MD Vinod, Poornima, MD Kostojchin, Anastas, MD Kussaga, Frank M, MD ST elevation myocardial infarction involving left anterior descending (LAD) coronary artery; HFrEF (heart failure with reduced ejection fraction) Discharge Disposition: Home 07/29/2024 Orders [place] [address] Susananh Watts PA 07/29/2024 Interpretation Only [address] [phone] Deondre Ferrera MD 07/29/2024 [place] [address] Ivan Hernandez MD 07/29/2024 External [place] [phone] 07/28/2024 Interpretation Only [address] [phone] Quinten Coffey MD 06/25/2024 Lab [place] [phone] Aubrey Cali MD Pyuria from Last 3 [...] the past 12 months has th e [employer], gas, oil, or water [employer] threatened to shut off services in your [...] 10:00 AM EST Office Visit Cardiology at [address] [phone] Mushtaq Murphy, FREDRICK Health Maintenance Due Date [...] MD HEMATOLOGY ORDERABLE S Performing Organization Address City/[facility]/ZIP Co de Phone Number [facility] [place] [address] * Magnesium (08/04/2024 6:08 AM EST) Only the most recent of8 resultswithin the time period is included. Magnesium 0.85 0.69 - 1.07 mMol/L 08/04/2024 7:07 AM [facility] Blood VENOUS BLOOD SPECIMEN / Unknown Venipuncture / Unknown 08/04/2024 6:08 AM EST 08/04/2024 6:19 AM EST Bridgette Stauffer MD CHEMISTRY ORDERABLES Performing Organization Address City/[facility] Co de Phone Number [facility] [place] [address] * Basic Metabolic Panel (08/04/2024 6:08 AM [...] - 15 mMol/L 08/04/2024 7:07 AM EST [facility] Calcium 8.5 8.5 - 10.5 mg/dL 08/04/2024 7:07 AM EST [facility] Est Glomerular Filtration Rate - Male 74 mL/min/1. 73 m?? 08/04/2024 7:07 AM EST [facility] Comment: [...] Stauffer MD CHEMISTRY ORDERABLES Performing Organization Address City/[facility]/ZIP Co de Phone Number [facility] [place] [address] * POC, GLUCOSE (08/02/2024 7:47 AM EST) [...] CARE TEST O RDERABLES Performing Organization Address City/[facility]/ZIP Co de Phone Number [facility] [place] [address] * Scan Doc: Telemetry Strips (08/02/2024 7:37 [...] CHEMISTRY ORDERABL ES [facility] [place] [address] * (ABNORMAL) Cooximetry, POC (08/01/2024 10:45 AM EST) Only the most recent of2 resultswithin the time period is included. pO2, Coox 32 mmHg 08/01/2024 10:48 AM EST [facility] Hemoglobin, Coox 12.9(L) 13.7 - 16.5 g/dL 08/01/2024 10:48 AM EST [facility] Oxyhemoglobin, Coox 66.7 % 08/01/2024 10:48 AM EST [facility] Carboxyhemoglo bin, Coox 1.1 [...] CARE TEST O RDERABLES Performing Organization Address [facility]/State/ZIP Co de Phone Number [facility] [place] [address] * CARDIAC CATHETERIZATION (07/31/2024 5:53 PM EST) Only the most recent of2 resultswithin the time period is included. Anatomical Region Laterality Modality Other Narrative 08/01/2024 12:37 PM EST ?[facility] ? Cardiac Catheterization/Intervention Report ? Patient Name: Korey Montoya. ? Procedure Date: 07/31/2024 ? A #: [id number] ? Primary Physician: Maldonado Luis ? Case #: [id number] ? File Name: [id number] ? Catheterization Order Number: [id number] ? [facility] ? Final Report [place], [place] ? Patient Name: ? Korey Mittal. Jan ?ID#: ?[id number] ? : ?1950 ? Procedure Date: ? July 31, 2024 ?Case #: ? [id number] ? Room: ? 1 ? Case [...] ? Comments: ?Impella removed from the right BUILDING SERVICES SUPERVISOR with deployment of Perclose and ?Angioseal. [...] Procedure Note Maldonado Luis MD - 08/01/2024 [facility] Cardiac Catheterization/Intervention Report Patient Name: Korey Montoya Procedure Date: 07/31/2024 A #: [id number] Primary Physician: Maldonado Luis Case #: [id number] File Name: [id number] Catheterization Order Number: [id number] [facility] FinalReport [place], [place] Patient Name: Korey Montoya ID#:[id number] :1950 Procedure Date: July 31, 2024 Case [...] as ASA Class IV. The [facility] clinical frailtyscale is 4: Vulnerable. [...] procedures. Comments: Impella removed from the right BUILDING SERVICES SUPERVISOR with deployment of Perclose and Angioseal. [...] - 7.45 07/31/2024 8:30 AM [facility] PCO2, Arterial 29(L) 35 - 45 mmHg 07/31/2024 8:30 AM [facility] PO2, Arterial 71(L) 85 - 104 mmHg 07/31/2024 8:30 AM [facility] Bicarbonate, Arterial 20.6 20.0 - 26.0 mmol/L 07/31/2024 8:30 AM [facility] Base Excess, Arterial -3.0 [...] TEST O RDERABLES [facility] [place] [address] * (ABNORMAL) Hepatic Function Panel (07/31/2024 1:08 [...] Parker MD CHEMISTRY ORDERABLES Performing Organization Address City/[facility]/ZIP Co de Phone Number [facility] [place] [address] * (ABNORMAL) Phosphorus (07/30/2024 3:08 PM EST) Only the most recent of3 resultswithin the time period is included. Phosphorus 2.1(L) 2.5 - 4.5 mg/dL 07/30/2024 3:58 PM EST [facility] Blood VENOUS BLOOD SPECIMEN / Unknown Venipuncture / Unknown 07/30/2024 3:08 PM EST 07/30/2024 3:12 PM EST Jay Silverio MD CHEMISTRY ORDERABL ES Performing Organization Address City/[facility]/ZIP Co de Phone Number [facility] [place] [address] * ECHO LMTD W CONTRAST W LMTD SPEC DOPP COLOR DOPP (07/30/2024 11:42 AM EST) Anatomical Region Laterality Modality Cardiac Other 07/30/2024 10:2 2 AM EST Narrative 07/30/2024 12:34 PM EST [address] [place] [address] ? Echocardiogram Report Name: KOREY MONTOYA ? Study Date: 07/30/2024 10:22 AMBP: 124/66 mmHg : 1950 ? Height: 168 cm ? Account: [id number] Age: 74 yrs ? Weight: 65 kg Gender: Male ?BSA: 1.7 m2 Ordering Physician: Jay Silverio MD Referring Physician: DEONDRE FERRERA Performed By: OMERO Millan Reason For Study: ST elevation myocardial infarction involving left anterior descending (LAD) coronary artery Interpreting Fellow: Ivan Hernandez. Exam Location: [facility]. Interpretation Summary Left ventricle is [...] Compared to the overnight study by the rn admission fellow the impella position is stable. 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 Procedure Limited - 64820. Image enhancement Definity was used for both [...] Note Kathleen Banda MD - 07/30/2024 1 [place] [address] Echocardiogram Report Name: KOREY MONTOYA Study Date: 410:22 AMBP: 124/66 mmHg : 1950 Height: 168 cm Account: [id number] Age: 74 yrs Weight: 65 kg Gender: Male BSA: 1.7 m2 Ordering Physician: Jay Silverio MD Referring Physician: DEONDRE FERRERA Performed By: OMERO Millan Reason For Study: ST elevation myocardial infarction involving leftanterior descending (LAD) coronary artery Interpreting Fellow: Ivan Hernandez. Exam Location: [facility]. Interpretation Summary Left ventricle is [...] Compared to the overnight study by the rn admission fellow the impella positionis stable. The global left ventricular systolic function has improvedpredominantly via recruitment outside the LAD territory which remains akinetic. Procedure Limited - 50903. Image enhancement Definity was used for both [...] of5 resultswithin the time period is included. [facility] Troponin-T, High Sensitivity 8,651(H) <=22 ng/L 07/30/2024 [...] can be found in the [facility] Laboratory Test Catalog Troponin - [email or web address].org/catalogs/565/[email or web address]/[email or web address] Reference: Fourth [place]lock Definition of Myocardial Infarction. Journal of the [place] [employer] 2018;72:0930-6209 Blood VENOUS BLOOD SPECIMEN / Unknown Venipuncture / Unknown 07/30/2024 8:09 AM EST 07/30/2024 8:26 AM EST Jay Silverio MD CHEMISTRY ORDERABL ES [facility] [place] [address] * Echocardiogram Transthoracic (07/30/2024 1:41 AM EST) Anatomical Region Laterality Modality Cardiac Other 07/30/2024 1:41 AM EST Narrative 07/30/2024 8:23 AM EST [address] [place] [address] ? Echocardiogram Report Name: KOREY MONTOYA Kyrie ? Study Date: 07/30/2024 01:41 AM : 1950 ? Height: 168 cm Age: 74 yrs ? Weight: 5.9 kg Gender: Male ?BSA: 0.63 m2 Performed By: Beatris Ching MD Reason For Study: STEMI, VT History: ASCVD, HTN, HLD Interpreting Fellow: Beatris Ching. Interpretation Summary This is a limited study performed by a fellow rn admission to evaluate for cardiogenic shock with impella [...] study available for comparison. Procedure Limited - 90412. Suboptimal quality. There is sinus bradycardia. Left [...] Note Kathleen Banda MD - 07/30/2024 [address] [place] [address] Echocardiogram Report Name: KOREY MONTOYA Study Date: 07/30/2024 01:41AM : 1950 Height: 168 cm Age: 74 yrs Weight: 5.9 kg Gender: Male BSA: 0.63 m2 Performed By: Beatris Ching MD Reason For Study: STEMI, VT History: ASCVD, HTN, HLD Interpreting Fellow: Beatris Ching. Interpretation Summary This is a limited study performed by a fellow rn admission to evaluate forcardiogenic shock with impella in. [...] study available for comparison. Procedure Limited - 97466. Suboptimal quality. There is sinus bradycardia. Left [...] BANK LAB ORD ERABLES Performing Organization Address City/[facility]/ZIP Co de Phone Number [facility] [place] [address] * Type and screen ([facility]/CGP/MAGALIE) (07/29/2024 5:56 PM EST) Pathologist [facility] [...] BANK LABORATORY T&S only valid at [facility] 07/29/2024 9:44 PM EST [facility] Blood VENOUS BLOOD SPECIMEN / Unknown Venipuncture / Unknown 07/29/2024 5:56 PM EST 07/29/2024 6:07 PM EST Narrative [facility] - 07/29/2024 9:44 PM EST This Type and Screen result is only valid at the [facility] Jay Silverio MD BLOOD BANK LAB ORD ERABLES Performing Organization Address City/[facility]/ZIP Co de Phone Number [facility] [place] [address] * EKG 12 Lead (07/29/2024 4:21 PM EST) Only the most recent of2 resultswithin the time period is included. Ventricular rate 72 BPM MUSE SYSTEM Atrial Rate 72 BPM MUSE SYSTEM P-R Interval 168 ms MUSE SYSTEM QRS Duration 82 ms MUSE SYSTEM Q-T Interval 392 ms MUSE SYSTEM QTC Calculated (Bezet) 429 ms MUSE SYSTEM Calculated P [place] 71 degrees MUSE SYSTEM Calculated R [place] 77 degrees MUSE SYSTEM Calculated T [place] 28 degrees MUSE SYSTEM INTERPRETATION Sinus rhythm [...] - BLO OD ORDERABLES Performing Organization Address City/[facility]/ZIP Co de Phone Number [facility] [place] [address] * XR Chest One View (07/29/2024 2:30 PM EST) Only the most recent of3 resultswithin the time period is included. WORKSTATION ID [id number] RAD Anatomical Region Laterality Modality Chest N/A [...] aide that requested your imaging first. ? Narrative [...] care aide that requested your imaging first. Vahe Marvin MD IMG DX ORDERABLES * TSH [place] (07/29/2024 2:03 PM EST) Thyroid Stimulating Hormone 0.70 0.27 - 4.20 mcIU/mL 07/29/2024 2:52 PM EST [facility] Blood VENOUS BLOOD SPECIMEN / Unknown Venipuncture / Unknown 07/29/2024 2:03 PM EST 07/29/2024 2:14 PM EST Vahe Marvin MD CHEMISTRY ORDERABLES Performing Organization Address City/[facility]/ZIP Co de Phone Number [facility] [place] [address] * CRP, acute inflammation (07/29/2024 2:03 PM EST) C-Reactive Protein <3.0 <=4.9 mg/L 07/29/2024 2:52 PM EST [facility] Blood VENOUS BLOOD SPECIMEN / Unknown Venipuncture / Unknown 07/29/2024 2:03 PM EST 07/29/2024 2:14 PM EST Vahe Marvin MD CHEMISTRY ORDERABLES [facility] [place] [address] * (ABNORMAL) APTT (07/29/2024 2:03 PM EST) Partial Thromboplastin Time >160(HHH) 25 - 37 sec 07/29/2024 2:56 PM EST [facility] Blood VENOUS BLOOD SPECIMEN / Unknown Venipuncture / Unknown 07/29/2024 2:03 PM EST 07/29/2024 2:13 PM EST Vahe Marvin MD HEMATOLOGY ORDERABLE S [facility] [place] [address] * (ABNORMAL) Prothrombin Time (07/29/2024 2:03 PM [...] EST Vahe Marvin MD HEMATOLOGY ORDERABLE S [facility] [place] [address] * Hemoglobin A1c (07/29/2024 2:03 PM EST) [...] red blood cell turnover may not be open claims representative of glycemic control. Reference Interval: 4.3 - 5.6% 5.7 - 6.4%: Consistent with prediabetes >=6.5%: Consistent with diagnosis of diabetes mellitus Estimated Average Glucose 07/29/2024 2:41 PM EST [facility] Comment:Estimated Average Gl ucose not appropriate for patients over 70 years of age. Blood VENOUS BLOOD SPECIMEN / Unknown Venipuncture / Unknown 07/29/2024 2:03 PM EST 07/29/2024 2:14 PM EST [facility] LAB[facility]ATORY - 07/29/2024 2:41 PM EST Estimated average glucose (eAG) is calculated from the equation described in: Quinten ALVES, Rikki J, Reno R, et al. ??Translating the A1C assay into estimated average glucose values. ??Diabetes Care 2008:31(8):6045-8759. Additional resources are available on the ADA website (diabetes.org). Vahe Marvin MD CHEMISTRY ORDERABLES [facility] [place] [address] * Lipid Panel (Reflex Direct LDL) (07/29/2024 2:03 PM EST) [facility] Cholesterol, Total 133 mg/dL 07/29/2024 2:52 PM [...] 58 mg/dL 4 2:52 PM [facility] Cholesterol 75 mg/dL 07/29/2024 2:52 PM EST [facility] Comment: Desirable: <130 mg/dL Above Desirable: 130-159 mg/dL Borderline High: 160-189 mg/dL High: 190-219 mg/dL Very High: > or = 220 mg/dL Blood VENOUS BLOOD SPECIMEN / Unknown Venipuncture / Unknown 07/29/2024 2:03 PM EST 07/29/2024 2:14 PM EST [facility] LABORATORY - 07/29/2024 2:52 PM EST It [...] artery disease) Vahe Marvin MD CHEMISTRY ORDERABLES [facility] [place] [address] * (ABNORMAL) Comprehensive metabolic panel (07/29/2024 2:03 PM EST) Glucose 243(H) 65 - 199 mg/dL 07/29/2024 3:11 PM EST [facility] Comment:Glucose Concentratio n >=200 mg/dL plus symptoms is consistent with Diabetes Mellitus. Blood Urea Nitrogen 13 10 - 20 mg/dL 07/29/2024 3:11 PM EST [facility] Creatinine 0.88 0.80 - 1.50 mg/dL 07/29/2024 3:11 PM EST [facility] Sodium 138 135 - 145 mMol/L 07/29/2024 3:11 PM EST [facility] Potassium 3.6 3.5 - 5.0 mMol/L 07/29/2024 3:11 PM EST [facility] Chloride 104 98 - 107 mMol/L 07/29/2024 3:11 PM EST [facility] Carbon Dioxide 19(L) 22 [...] 73 m?? 07/29/2024 3:11 PM [facility] MD CHEMISTRY ORDERABLES [facility] [place] [address] * (ABNORMAL) Blood Gas, Venous POC (07/29/2024 2:01 PM EST) pH, Venous 7.30(L) 7.32 - 7.42 07/29/2024 2:02 PM [facility] PCO2, Venous 42 38 [...] <=1.5 % 07/29/2024 2:02 PM [facility] Sodium, Venous 137 135 - 145 mmol/L 07/29/2024 2:02 PM [facility] Potassium, Venous 3.6 3.5 - 5.0 mmol/L 07/29/2024 2:02 PM [facility] Chloride, Venous 103 98 - 107 mmol/L 07/29/2024 2:02 PM [facility] Glucose, Venous 229(H) 65 - 199 mg/dL 07/29/2024 2:02 PM [facility] Comment:Glucose Concentratio n >=200 mg/dL plus symptoms is consistent with Diabetes Mellitus. Lactate, Venous 3.1(H) 0.5 - 2.2 mmol/L 07/29/2024 2:02 PM [facility] Ionized Calcium, Venous 1.11(L) 1.15 - 1.33 mmol/L 07/29/2024 2:02 PM [facility] Blood VENOUS BLOOD SPECIMEN / Unknown 07/29/2024 2:01 PM EST 07/29/2024 2:02 PM EST Vahe Marvin MD POINT OF CARE TEST O RDERABLES [facility] [place] [address] * (ABNORMAL) BLOOD GAS, POC (07/29/2024 12:46 [...] - 16.5 g/dL 07/30/2024 7:30 AM EST [facility] Comment:The calculation of h emoglobin from hematocrit assumes a normal MCHC. Bicarbonate, POC 19.8(L) 20.0 - 26.0 mmol/L 07/30/2024 7:30 AM EST [facility] Carbon Dioxide, POC 21(L) 22 - 31 mmol/L 07/30/2024 7:30 AM EST [facility] Blood VENOUS BLOOD SPECIMEN / Unknown 07/29/2024 12:46 PM EST 07/30/2024 7:30 AM EST Vahe Marvin MD POINT OF CARE TEST O RDERABLES Performing Organization Address [facility] [place] [address] * External Cardiology Result (07/29/2024 10:13 AM EST) Anatomical Region Laterality Modality Other Historical Provider EXTERNAL CARDIOLO GY RESULT * Scan Doc: EEG (07/29/2024 9:44 AM EST) Historical Provider MEDIA MGR SCAN EX T ORDR/RSLT * Urine culture (06/25/2024 11:55 AM EDT) Urine Culture No growth 06/26/2024 12:22 PM EDT [facility] Urine URINE SPECIMEN OBTAINED BY CLEAN CATCH PROCEDURE / Unknown 06/25/2024 11:55 AM EDT 06/25/2024 5:18 PM EDT Aubrey Cali MD MICROBIOLOGY - GENER AL ORDERABLES Performing Organization Address [facility] [place] [address] * COLONOSCOPY (08/30/2023 10:57 AM EST) COLONOSCOPY [facility] Endoscopy Procedure Date: 08/30/2023 10:57 AM ? Patient Name: Korey Montoya ? Date of : 1950 ? Age: 73 ? Order #: [id number] ? Instrument Name: [id number] ? Procedure: ? Colonoscopy Indications: ? Rectal [...] preparation was evaluated ? using the BBPS (Scenic Bowel ? Preparation Scale) with scores of: [...] Content of discussion: pre-arrest limitations Care Teams Auditor In Charge Relationship Specialty Start Date End Date Alexia Mtz APRN [address] [place] [address] PCP - General Family Medicine 07/30/24
--- OUTSIDE RECORDS SUMMARY | 2024-09-24 11:13 | XMS_ITS | Encounter Summary ---
Author Organization [facility] Address [facility] [place] [address] Care Team Providers Care School Bus Technician Name Role Phone Yoel Artis FREDRICK Primary Care Provider [phone] Reason for Visit * Auth/Cert (Routine) Specialty Diagnoses / Procedures Referred By Theodore t Referred To Contact Diagnoses AIR[facility] Procedures [place] [employer] [place] [employer] [facility] Referral ID Status Reason Start Date Expiration Date Visits Re quested Visits Authorized [id number] 1 1 Encounter Details Date Type Department Care Team (Latest Contact Info) Description 07/29/2024 6:32 PM EST - 07/29/2024 11:59 PM [facility] Hospital Encounter [facility] at [address] [phone] Arvin Becerra MD [facility] [place] [address] Discharge Disposition: Home Social History Tobacco Use Types Packs/Day Years Used Date Smoking Tobacco: Former Cigarettes Smokeless Tobacco: Never Alcohol Use Standard Drinks/Week Comments Not Currently 0 (1 standard drink = 0.6 oz pur e alcohol) [facility] Utilities Answer Date Recorded [...] in a halfway (including now)? No 07/30/2024 DH IPV Inpatient [...] evening. 04/17/2023 08/04/2024 nitroGLYcerin (NITROLINGUAL) 400 mcg/spray [place], Non-AerosolIndications: Proctalgia fugax,Fecal smearing,Constipation, unspecified constipation type 1 spray to anus for proctalgia fugax as needed, not to exceed once daily 12 g 06/01/2023 08/04/2024 documented as of this encounter Plan of Treatment Upcoming Encounters Date Type Department Care Team (Late st Contact Info) Description 10/01/2024 10:00 AM EST Office Visit Cardiology at [address] [phone] Mushtaq Murphy APRN documented as of this encounter Visit Diagnoses Not on filedocumented in this encounter Care Teams School Bus Technician Relationship Specialty Start Date End Date Yoel Artis APRN [address] [place] [address] PCP - General Internal Medicine 11/18/22 07/29/24 documented as of this encounter
--- OUTSIDE RECORDS SUMMARY | 2024-09-24 11:13 | XMS_ITS | Encounter Summary ---
[place] [address] Care Team Providers Care Art Therapy Specialist Name Role Phone Alexia Mtz FREDRICK Primary Care Provider [phone] Reason for Visit * Auth/Cert (Routine) Specialty Diagnoses / Procedures Referred By Theodore muro Referred To Contact Diagnoses STEMI (ST elevation myocardial infarction) STEMI Procedures ER SUI Vahe Marvin MD [facility] [place] [address] [facility] Referral ID Status Reason Start Date Expiration Date Visits Re quested Visits Authorized [id number] 1 1 Encounter Details Date Type Department Care Team (Late st Contact Info) Description 07/31/2024 4:30 PM EST - 07/31/2024 5:30 PM EST Surgery [place] [address] Maldonado Luis MD [facility] [place] [address] CARDIAC CATHETERIZATION Social History Tobacco Use Types Packs/Day Years Used Date Smoking Tobacco: Former Cigarettes Smokeless Tobacco: Never Alcohol Use Standard Drinks/Week Comments Not Currently 0 (1 standard drink = 0.6 oz pur e alcohol) [facility] Utilities Answer Date Recorded In the past 12 months has [employer] electric, gas, oil, or water company threatened [...] Korey Montoya Patient Age: 74 y.o. Language: Bolivian Race: White Ethnicity: Not nor Admit date: [...] your inpatient physician through the [facility] Public Relations Supervisor . Issues afterhours and on weekends will [...] transferred via air ambulance [place] [facility] [place] for LHC [...] transferred via air ambulance to [facility] for further management and [...] the next year. Access was via right [employer] and this sitewas clean, dry and intact [...] for Chest pain. Replaces: nitroGLYcerin 400 mcg/spray [place], Non-Aerosol 0.4 mg Quantity: 90 tablet Refills: [...] Refills: 0 STOPPED Medications nitroGLYcerin 400 mcg/spray [place], Non-Aerosol Commonly known as: NITROLINGUAL Replaced by: [...] of one year. After this time, your ultrasound technol will determine if you need to continue [...] away. Stay on the phone. The emergency belling machine operator will tell you what to [...] appointments: During 8am-5pm Tuesday through Tuesday call [phone] to speak with a nurse in the cardiology clinic All other times call [phone] and ask to speak to the coremaker lathe operator contact lens. Follow up Appointments: PCP Alexia Mtz, PHARMACY SERVICES DIRECTOR [phone]. Please call to establish a follow up appointment within 1-2 weeks of discharge. Cardiology. Referral to heart failure has been sent. General Instructions None Future Appointments and Orders Future Orders Complete By Expires Referral to Cardiac Rehab [SFV891 Custom] As directed Process Instructions: If no [...] of one year. After this time, your ultrasound technol will determine if you need to continue [...] away. Stay on the phone. The emergency belling machine operator will tell you what to [...] appointments: During 8am-5pm Tuesday through Tuesday call [phone] to speak with a nurse in the cardiology clinic All other times call [phone] and ask to speak to the coremaker lathe operator contact lens. Follow up Appointments: PCP Alexia Mtz, PHARMACY SERVICES DIRECTOR [phone]. Please call to establish a follow up [...] transferred [place] [facility] [place] for LHC and LOW to LAD for 100% occlusion Social History: Pt lives with his in a 1 level home with 2 NAOMI. 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 [...] Total time: 35 (tef) minutes Time IN/OUT: 1115-6800 ZAIDA DUBOSE PT Pager: [phone] Physical Therapy Inpatient Rehabilitation Department * Yrn Ward MD - 08/03/2024 10:38 AM EST CV HOSPITALIST 2 - [facility] DAILY PROGRESS NOTE Page [phone] to reach a provider 04/04 Admit Date: [...] or before 29-JUL-2024) Lateral injury pattern ACUTE MN / STEMI Abnormal ECG When compared with [...] Compared to the overnight study by the lathe operator contact lens fellow the impella position is stable. 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 [facility] 07/29/24 Conclusions: * One vessel coronary artery disease (LAD) * Mild pulmonary hypertension * Elevated pulmonary capillary wedge pressure * Successful stent insertion of the proximal LAD lesion * See Dual Antiplatelet (DAPT) Recommendations above * Successful impella placement for cardiogenic shock. Telemetry: I have personally reviewed and interpreted the telemetry from the last 24 hours. [facility] Assessment: ASSESSMENT: Korey Montoya is a 74 y.o. male w/ PMH of hypertension, HLD, and BPH who presents for chief concern of chest pain after being found to have ST elevations on EKG. Patient transferred via air ambulance [place] [facility] [place] for C [...] to be determined OT: PCP Alexia Mtz, PHARMACY SERVICES DIRECTOR [phone] * Zaida Dubose, PT - 08/02/2024 2:08 PM EST Physical Therapy Evaluation Patient profile: Korey Montoya is a 74 y.o. male w/ PMH of hypertension, HLD, and BPH who presents for chief concern of chest pain after being found to have ST elevations on EKG. Patient transferred via air ambulance [place] [facility] [place] for LHC and LOW to LAD for 100% occlusion Social History: Pt lives with his in a 1 level home with 2 NAOMI. 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 [...] Total time: 37 (eval) minutes Time IN/OUT: 6828-8756 ZAIDA DUBOSE, PT Pager: [phone] Physical Therapy Inpatient Rehabilitation Department * Gagan [...] transferred via air ambulance [place] [facility] [place] for LHC [...] PCP: Alexia Mtz APRN PCP phone number: [phone] Date of Admission: 07/29/2024 ( Hospital Day 4 days ) Attending:Bridgette Stauffer MD ID: Korey Montoya is a 74 y.o. male w/ PMH of hypertension, HLD, and BPH on Hospital Day4 for chief concern of chest pain after being found to have ST elevations on EKG. Patient transferred via air ambulance [place] [facility] [place] for LHC [...] 07/29/24 1621 PHART 7.48* 7.44 7.38 7.37 [id number] 29* 29* 34* 36 PO2ART 71* 109* 141* 71* NBA3DCS 20.6 19.4* 19.5* 20.4 VBG (Venous Blood Gas) Recent Labs 07/29/24 1401 PHVEN 7.30* PO2VEN 39 JUL9JWG 20.1* Mixed Venous Sat No results for input(s): R6XZXM3 in the last 168 hours. Objective: Vitals [...] 07/29/24 1621 PHART 7.48* 7.44 7.38 7.37 [id number] 29* 29* 34* 36 PO2ART 71* 109* 141* 71* PKB4JNH 20.6 19.4* 19.5* 20.4 VBG (Venous Blood Gas) Recent Labs 07/29/24 1401 PHVEN 7.30* PO2VEN 39 LID6VLH 20.1* Mixed Venous Sat No results for input(s): U1PWVT7 in the last 168 hours. Microbiology: Microbiology Results (Last 30 days) Procedure Component Value Units Date/Time Blood culture [[id number]] Collected: 07/29/241607 Lab Status: Preliminary result Specimen: Blood, Venous Updated: 08/01/241700 Blood Culture No growth at 72 hours Blood culture [[id number]] Collected: 07/29/241607 Lab Status: Preliminary result Specimen: Blood, Venous Updated: 08/01/241700 Blood Culture No growth at 72 hours Imaging: Results for orders placed or performed during the hospital encounter of 07/29/24 XR Chest One View (Exam End: 07/29/2024 2:30 PM) Result Value WORKSTATION ID [id number] Impression 1. No pulmonary edema. 2. No pleural effusion. 3. No pneumothorax. Thank you for letting us participate in the care of this patient. If you are a health care provider and have any questions regarding this report, please contact the number below. For patients who have questions please contact the health child care group leader that requested your imaging first. Electronically signed by: Chris Candelaria MD, [facility] ([phone]), at 07/29/2024 3:21 PM TTE ( 07/30/24) [...] Compared to the overnight study by the lathe operator contact lens fellow the impella position is stable. The [...] transferred via air ambulance [place] [facility] [place] for LHC [...] Susannah Ornelas MD Internal Medicine, PGY-1 Cardiology, [facility] 08/02/24 12:45 PM CARDIOLOGY STAFF NOTE [...] Parker MD, [facility] [place] Staff [employer] Chief Scientist solution engineer * Gagan Catherine MD - 08/01/2024 11:12 [...] transferred via air ambulance [place] [facility] [place] for LHC and LOW to LAD for 100% occlusion. TTE showed apical akinesis and inferior hypokinesis with EF 20%. RHC showed elevated filling pressures. Impella placed and P-level 6 at time of transfer to [facility]. CI initially 1.97, improved to 2.2 After impella. Received about 3 L of fluid during procedural course. Patient initially required norepinephrine 30, epinephrine 10, and vasopressin 0.04 for hemodynamic support, which was weaned upon arrival to [facility] to norepinephrine 20and levo 0.04 N [...] PCP: Alexia Mtz APRN PCP phone number: [phone] Date of Admission: 07/29/2024 ( Hospital Day 3 days ) Attending:Krystal Parker MD ID: Korey Montoya is a 74 y.o. male w/ PMH of hypertension, HLD, and BPH on Hospital Day3 for chief concern of chest pain after being found to have ST elevations on EKG. Patient transferred via air ambulance [place] [facility] [place] 07[place] for LHC [...] 07/29/24 1621 PHART 7.48* 7.44 7.38 7.37 ZVC2MZU 29* 29* 34* 36 PO2ART 71* 109* 141* 71* STO6NEF 20.6 19.4* 19.5* 20.4 VBG (Venous Blood Gas) Recent Labs 07/29/24 1401 PHVEN 7.30* PO2VEN 39 JNA3GQW 20.1* Mixed Venous Sat No results for input(s): X4SXFM3 in the last 168 hours. PA Catheter [...] 07/29/24 1621 PHART 7.48* 7.44 7.38 7.37 WFT8DXX 29* 29* 34* 36 PO2ART 71* 109* 141* 71* GVM5UHM 20.6 19.4* 19.5* 20.4 VBG (Venous Blood Gas) Recent Labs 07/29/24 1401 PHVEN 7.30* PO2VEN 39 GCC0ECF 20.1* Mixed Venous Sat No results for input(s): U2QFDH3 in the last 168 hours. Microbiology: Microbiology Results (Last 30 days) Procedure Component Value Units Date/Time Blood culture [[id number]] Collected: 07/29/24 160 Lab Status: Preliminary result Specimen: Blood, Venous Updated: 07/31/24 170 Blood Culture No growth at 48 hours Blood culture [[id number]] Collected: 07/29/24 1608 Lab Status: Preliminary result Specimen: Blood, Venous Updated: 07/31/24 1701 Blood Culture No growth at 48 hours Imaging: Results for orders placed or performed during the hospital encounter of 07/29/24 XR Chest One View (Exam End: 07/29/2024 2:30 PM) Result Value WORKSTATION ID [id number] Impression 1. No pulmonary edema. 2. No pleural effusion. 3. No pneumothorax. Thank you for letting us participate in the care of this patient. If you are a health care provider and have any questions regarding this report, please contact the number below. For patients who have questions please contact the health child care group leader that requested your imaging first. Electronically signed by: Chris Candelaria MD, [facility] ([phone]), at 07/29/2024 3:21 PM TTE ( 07/30/24) [...] Compared to the overnight study by the lathe operator contact lens fellow the impella position is stable. The [...] transferred via air ambulance [place] [facility] [place] for LHC [...] Susannah Ornelas MD Internal Medicine, PGY-1 Cardiology, [facility] 08/01/24 7:13 AM CARDIOLOGY STAFF NOTE [...] Parker MD, [facility] Staff [employer] Chief Scientist solution engineer * Krystal Parker MD - 07/31/2024 1:06 [...] transferred via air ambulance [place] [facility] [place] 07[place] for LHC and LOW to LAD for 100% occlusion. TTE showed apical akinesis and inferior hypokinesis with EF 20%. RHC showed elevated filling pressures. Impella placed and P-level 6 at time of transfer to [facility]. CI initially 1.97, improved to 2.2 After impella. Received about 3 L of fluid during procedural course. Patient initially required norepinephrine 30, epinephrine 10, and vasopressin 0.04 for hemodynamic support, which was weaned upon arrival to [facility] to norepinephrine 20and levo 0.04 N [...] PCP: Alexia Mtz APRN PCP phone number: [phone] Date of Admission: 07/29/2024 ( Hospital Day 2 days ) Attending:Krystal Parker MD ID: Korey Montoya is a 74 y.o. male w/ PMH of hypertension, HLD, and BPH on Hospital Day2 for chief concern of chest pain after being found to have ST elevations on EKG. Patient transferred via air ambulance [place] [facility] on 07[place] for LHC [...] 0057 07/29/24 1621 PHART 7.44 7.38 7.37 DNE7GEP 29* 34* 36 PO2ART 109* 141* 71* GZX0ZDV 19.4* 19.5* 20.4 VBG (Venous Blood Gas) Recent Labs 07/29/24 1401 PHVEN 7.30* PO2VEN 39 MOU1ZUO 20.1* Mixed Venous Sat No results for input(s): J2IJLU1 in the last 168 hours. PA Catheter [...] 0057 07/29/24 1621 PHART 7.44 7.38 7.37 MWW6CCO 29* 34* 36 PO2ART 109* 141* 71* JCV9UNS 19.4* 19.5* 20.4 VBG (Venous Blood Gas) Recent Labs 07/29/24 1401 PHVEN 7.30* PO2VEN 39 CLF4QVK 20.1* Mixed Venous Sat No results for input(s): N3PTHW8 in the last 168 hours. Microbiology: Microbiology Results (Last 30 days) Procedure Component Value Units Date/Time Blood culture [[id number]] Collected: 07/29/241607 Lab Status: Preliminary result Specimen: Blood, Venous Updated: 07/30/241700 Blood Culture No Growth at 18-24 hrs. Blood culture [[id number]] Collected: 07/29/241607 Lab Status: Preliminary result Specimen: Blood, Venous Updated: 07/30/241700 Blood Culture No Growth at 18-24 hrs. Imaging: Results for orders placed or performed during the hospital encounter of 07/29/24 XR Chest One View (Exam End: 07/29/2024 2:30 PM) Result Value WORKSTATION ID [id number] Impression 1. No pulmonary edema. 2. No pleural effusion. 3. No pneumothorax. Thank you for letting us participate in the care of this patient. If you are a health care provider and have any questions regarding this report, please contact the number below. For patients who have questions please contact the health child care group leader that requested your imaging first. Electronically signed by: Chris Candelaria MD, [facility] ([phone]), at 07/29/2024 3:21 PM TTE ( 07/30/24) [...] Compared to the overnight study by the lathe operator contact lens fellow the impella position is stable. The [...] transferred via air ambulance [place] [facility] [place] for LHC [...] work to optimize volume status while continuing bceyapa-bjdknb-vlxjgvjwft therapies at this time. Obtain comprehensive TTE. [...] transferred via air ambulance to [facility] on 07[place] for LHC and LOW to LAD for 100% occlusion. TTE showed apical akinesis and inferior hypokinesis with EF 20%. RHC showed elevated filling pressures. Impella placed and P-level 6 at time of transfer to [facility]. CI initially 1.97, improved to 2.2 After impella. Received about 3 L of fluid during procedural course. Patient initially required norepinephrine 30, epinephrine 10, and vasopressin 0.04 for hemodynamic support, which was weaned upon arrival to [facility] to norepinephrine 20and levo 0.04 N [...] PCP: Yoel Artis APRN PCP phone number: [phone] Date of Admission: 07/29/2024 ( Hospital Day 1 day ) Attending:Jay Silverio MD ID: Korey Montoya is a 74 y.o. male w/ PMH of hypertension, HLD, and BPH on Hospital Day1 for chief concern of chest pain after being found to have ST elevations on EKG. Patient transferred via air ambulance [place] [facility] [place] for LHC and LOW to LAD for 100% occlusion. 24 Hour Events/Subjective: Yesterday: - Admitted to the [facility] - After his LHC, he demonstrated [...] 0057 07/29/24 1621 PHART 7.44 7.38 7.37 CSZ6XQF 29* 34* 36 PO2ART 109* 141* 71* KWK6KFF 19.4* 19.5* 20.4 VBG (Venous Blood Gas) Recent Labs 07/29/24 1401 PHVEN 7.30* PO2VEN 39 JYS4SQY 20.1* Lactate ( Last 12 hours) 1.3 >> 1.2 Mixed Venous Sat No results for input(s): I1TIYZ5 in the last 168 hours. PA Catheter [...] 0057 07/29/24 1621 PHART 7.44 7.38 7.37 NTS3VNJ 29* 34* 36 PO2ART 109* 141* 71* WLT1MIA 19.4* 19.5* 20.4 VBG (Venous Blood Gas) Recent Labs 07/29/24 1401 PHVEN 7.30* PO2VEN 39 USV2PHH 20.1* Mixed Venous Sat No results for input(s): M1MROR0 in the last 168 hours. Microbiology: Microbiology Results (Last 30 days) Procedure Component Value Units Date/Time Blood culture [[id number]] Collected: 07/29/24 1608 Lab Status: In process Specimen: Blood, Venous Updated: 07/29/24 162 Blood culture [[id number]] Collected: 07/29/24 1608 Lab Status: In process Specimen: Blood, Venous Updated: 07/29/24 1615 Imaging: Results for orders placed or performed during the hospital encounter of 07/29/24 XR Chest One View (Exam End: 07/29/2024 2:30 PM) Result Value WORKSTATION ID [id number] Impression 1. No pulmonary edema. 2. No pleural effusion. 3. No pneumothorax. Thank you for letting us participate in the care of this patient. If you are a health care provider and have any questions regarding this report, please contact the number below. For patients who have questions please contact the health child care group leader that requested your imaging first. Electronically signed by: Chris Candelaria MD, [facility] ([phone]), at 07/29/2024 3:21 PM Medications Scheduled Meds: [...] transferred via air ambulance [place] [facility] [place] for LHC [...] transferred via air ambulance [place] [facility] on 07[place] for LHC [...] transferred via air ambulance to [facility] for further management and [facility] demo nstrated 100% occlusion. No significant RCA, LMCA, or LCX disease. LOW placed in LAD with some residual distal disease meriting placement of overlapping distal stent. TTE showed apical akinesis and inferior hypokinesis with EF 20%. RHC showed elevated filling pressures. Impella placed and P-level 6 at time of transfer to [facility]. CI initially 1.97, improved to 2.2 After impella. Received about 3 L of fluid during procedural course. Patient initially required norepinephrine, epinephrine, and vasopressin for hemodynamic support, which was weaned upon arrival to [facility] to norepinephrine 20 and levo 0.04 [...] mouth. Past Week nitroGLYcerin (NITROLINGUAL) 400 mcg/spray [place], Non-Aerosol 1 spray to anus for proctalgia [...] 3.5 guiding catheter and a 3.5 Fr [place] [address] 20 Mhz using Manual pullback. Imaging [...] atmospheres. A premounted 3.00 x 22 mm Rudolph Mccracken (LOW) was deployed with a maximum inflation [...] A premounted 3.00 x 08 mm Jeison Mccracken (LOW) was deployed with a maximum inflation [...] a limited study performed by a fellow lathe operator contact lens to evaluate for cardiogenic shock with impella [...] Compared to the overnight study by the lathe operator contact lens fellow the impella position is stable. The [...] transferred via air ambulance [place] [facility] [place] 07[place] for LHC [...] PCP: Yoel Artis APRN PCP phone number: [phone] Date of Admission: 07/29/2024 ( Hospital Day 0 days ) Attending:Jay Silverio MD ID: Korey Montoya is a 74 y.o. male w/ PMH of hypertension, HLD, and BPH who presents for chief concern of chest pain after being found to have ST elevations on EKG. Patient transferred via air ambulance [place] [facility] [place] 07[place] for LHC and LOW to LAD for 100% occlusion. HPI: Korey Montoya is a 74 y.o. male w/ PMH of hypertension, HLD, and BPH who presents for chief concern of chest pain after being found to have ST elevations on EKG. Patient transferred via air ambulance [place] [facility] on 07[place] for LHC [...] transferred via air ambulance to [facility] for further management and [...] Blood Gas) No results for input(s): PHART, MQG0MHB, PO2ART, MVX9WUU, LACTATEVEN, EIV3RIS, PFRATIOART2 in the last 168 hours. VBG (Venous Blood Gas) Recent Labs 07/29/24 1401 PHVEN 7.30* PO2VEN 39 RJT5TAH 20.1* Mixed Venous Sat No results for input(s): T7SXTA6 in the last 168 hours. PA Catheter [...] Blood Gas) No results for input(s): PHART, AKJ7SWR, PO2ART, YHL5RWW, LACTATEVEN, AEN9EHB, PFRATIOART2 in the last 168 hours. VBG (Venous Blood Gas) Recent Labs 07/29/24 1401 PHVEN 7.30* PO2VEN 39 OWF9TVB 20.1* Mixed Venous Sat No results for input(s): L3XKOY7 in the last 168 hours. Microbiology: Microbiology [...] transferred via air ambulance [place] [facility] [place] for C. Found to have 100% occlusion of LAD for which he underwent LOW to LAD.Otherwise no other significant vessel disease. Fahad is currently hemodynamically tenuous but improving upon admission to [facility], requiring hemodynamic support with norepinephrine and vasopressin at time of admission along with mechanical support with Impella device. Reassuringly, he demonstrates decreasing pressor requirements since admission to [facility], with epinephrine completely weaned. He does [...] Bernardo Amos MD Internal Medicine, PGY-3 Cardiology, [facility] 07/29/24 3:14 PM Cardiology Attending Note [...] FACP, FACC Section of Cardiovascular Medicine [facility] Manager Emergency Departmentresidential door installer [facility] [employer] [facility] This patient meets or has met [...] to the planned procedure. Hand Hygiene: The lining inserter did perform hand hygiene prior to [...] ease. Good wave form. Ivan Hernandez MD Receiver Setter Associated attestation - Rolando Yeh MD - [...] Fahad was quite active prior to his MN. He had even started running (to help [...] No Patient is insured through: Primary Insurance: [facility] MANAGED MEDICARE Payor: [facility] MANAGED MEDICARE / Plan: [facility] MANAGED MEDICARE COMPLETE / Product Type: [...] Date of Discharge: 08/04/2024 Gaby Wong RN, Pager-[phone] * Initial Assessments - Char Meza, OT - 08/03/2024 10:00 AM EST Occupational Therapy Evaluation Patient profile: Korey Montoya is a 74 y.o. male admitted on 07/29/2024 w/ PMH of hypertension, HLD, and BPH who presents for chief concern of chest pain after being found to have ST elevations onEKG. Patient transferred via air ambulance [place] [facility] [place] for LHC [...] falls. Subjective: I have access to an [employer] weight gym. (Educated to wait for MD [...] evaluation only Total Minutes, Occupational Therapy: 14 ([id number] (evaluation)) 2017 OT Evaluation Code Rationale: Diagnosis [...] and measurable assessment of functional outcome. Pager: [phone] Char Meza OT 08/03/2024 Occupational Therapy Rehabilitation [...] (Interventions Implemented as Appropriate) Flowsheets (Taken 08/01/2024 3127) Outcome Summary: A+O, no pain. NSR. MAP [...] Procedure Note: Patient Name: Korey Montoya : [id number] MR#: [id number] Case Date: 07/31/2024 Public Relations Supervisor: Surgeons and Role: * Maldonado Luis MD - Primary * Quinten Charles PA - Physician Senior Planner Preoperative diagnosis: shock, impella Postoperative diagnosis: * same * Procedure(s) performed: Impella removal form right [employer] Access: Right [employer] A time-out was conducted prior to the [...] Admitted From: Transfer from another hospital Location: [facility] Reason for Hospitalization: chest pain [...] 180 days) Any patient receiving care in [place] must abide by [place] law. The hierarchy [...] (i) The agent with financial power of finance attorney or a conservator appointed in accordance [...] In the past 12 months has the [employer] gas, oil, or water [employer] threatened to shut off services in your [...] it) Home Address confirmed as: Mailing Address: [facility] [address] [address] Physical Address: [address] [place], [place] Social & Family Supports: All names [...] points: Addiction likely Health/Prescription Coverage: Primary Insurance: [facility] Multispan MEDICARE Payor: [facility] Multispan MEDICARE / [facility] COM[facility]TE / Product Type: *No Product type* / Secondary Insurance: N/A ; Prescription Coverage: Yes Preferred Pharmacy: [address] [address] [place] Status: Patient is a : No Primary Care Provider confirmed: Alexia Mtz, PHARMACY SERVICES DIRECTOR [phone] Patient/Caregiver Goals of Treatment: return home Potential [...] RN * Plan of Care - Chase Catsro RN - 07/30/2024 5:30 AM EST Pt [...] Implemented as Appropriate) 07/30/2024 0529 by Chase aCstro RN Outcome: Ongoing (Interventions Implemented as Appropriate) Problem: Pain (Cardiac Catheterization) Goal: Acceptable Pain Control 07/30/2024 0530 by Chase Castro RN Outcome: Ongoing (Interventions Implemented as Appropriate) 07/30/2024 0529 by Chase Castro RN Outcome: Ongoing (Interventions Implemented as Appropriate) * Plan of Care - Ary Malone RN - 07/29/2024 6:25 PM EST Pt arrived from laboratory scientist @ 1400. CXR and EKG completed. Impella [...] Procedure Note: Patient Name: Korey Montoya : [id number] MR#: [id number] Case Date: 07/29/2024 Public Relations Supervisor: Surgeons and Role: * Vahe Marvin MD - Primary * Susannah Watts PA - Physician Senior Planner Preoperative diagnosis: STEMI Postoperative diagnosis: * STEMI, LAD Artery * * Cardiogenic Shock * Procedure(s) performed: [facility] Coronary angiogram Stent insertion coronary IVUS coronary Venous line insert [facility] [place] Colette Catheter Vascular closure device Ventricular assist [...] x 22 mm to 14 deonna JEISON Mccracken with LIZ 3 flow. Residual distal disease at distal stent, overlapping distal stent was inserted with 3.0 x 8 mm JEISON Mccracken. Systolic's in the 80's sustained. Patient re [...] AM EST Office Visit Cardiology at [address] [id number] Mushtaq Murphy, PHARMACY SERVICES DIRECTOR Scheduled Orders Name Type Priority Associated [...] - 9.50 x10(3)/mc L 08/04/2024 6:39 AM [facility] Red Blood Cell 4.28(L) 4.58 - 5.54 x10(6)/mc L 08/04/2024 6:39 AM [facility] Hemoglobin 11.6(L) 13.7 - 16.5 g/dL 08/04/2024 6:39 AM [facility] Hematocrit 34.8(L) 40.5 - 48.5 % 08/04/2024 6:39 AM [facility] Mean Cell Volume 81.3(L) 82.9 - 93.1 fL 08/04/2024 6:39 AM [facility] Mean Cell Hemoglobin 27.1(L) 27.5 - 32.1 pg 08/04/2024 6:39 AM [facility] Mean Cell Hemoglobin Concentration 33.3 32.0 - 35.7 g/dL 08/04/2024 6:39 AM [facility] Platelet 178 145 - 357 x10(3)/mc L 08/04/2024 6:39 AM [facility] Mean Platelet Volume 10.6 7.6 - 12.9 fL 08/04/2024 6:39 AM [facility] RDW Standard Deviation 42.0 36.0 - 45.0 fL 08/04/2024 6:39 AM [facility] RDW coefficient of variation 14.3(H) 11.4 - 13.8 % 08/04/2024 6:39 AM [facility] NRBC% auto 0.0 % 08/04/2024 6:39 AM [facility] NRBC Absolute <0.01 <0.01 x10(3)/mc L 08/04/2024 6:39 AM [facility] Neutrophil % 72.1 % 08/04/2024 6:39 AM [facility] Neutrophil Absolute (ANC) - Automated 5.24 1.70 - 6.10 x10(3)/mc L 08/04/2024 6:39 AM [facility] Lymph % 16.8 % 08/04/2024 6:39 AM [facility] Lymph Absolute 1.22 0.90 - 3.20 x10(3)/mc L 08/04/2024 6:39 AM [facility] Monocyte % 8.5 % 08/04/2024 6:39 AM [facility] Monocyte Absolute 0.62 0.30 - 0.90 x10(3)/mc L 08/04/2024 6:39 AM [facility] Eos % 1.9 % 08/04/2024 6:39 AM [facility] Eos Absolute 0.14 0.00 - 0.40 x10(3)/mc L 08/04/2024 6:39 AM [facility] Basophil % 0.4 % 08/04/2024 6:39 AM [facility] Baso Absolute <0.04 0.00 - 0.10 x10(3)/mc L 08/04/2024 6:39 AM [facility] Immature Gran % 0.3 % 6:39 AM [facility] Immature Gran Absolute <0.04 0.00 - 0.04 x10(3)/mc L 08/04/2024 6:39 AM EST [facility] Blood VENOUS BLOOD SPECIMEN / Unknown Venipuncture / Unknown 08/04/2024 6:08 AM EST 08/04/2024 6:19 AM EST Bridgette Stauffer MD HEMATOLOGY ORDERABLE S Performing Organization Address City/[facility]/ZIP Co de Phone Number [facility] [place] [address] * Magnesium (08/04/2024 6:08 AM EST) Magnesium 0.85 0.69 - 1.07 mMol/L 08/04/2024 7:07 AM [facility] Blood VENOUS BLOOD SPECIMEN / Unknown Venipuncture / Unknown 08/04/2024 6:08 AM EST 08/04/2024 6:19 AM EST Bridgette Stauffer MD CHEMISTRY ORDERABLES Performing Organization Address City/[facility]/ZIP Co de Phone Number [facility] [place] [address] * Basic Metabolic Panel (08/04/2024 6:08 AM EST) Glucose 93 65 - 199 mg/dL 08/04/2024 7:07 AM [facility] Comment:Glucose Concentratio n >=200 mg/dL plus symptoms is consistent with Diabetes Mellitus. Blood Urea Nitrogen 14 10 - 20 mg/dL 08/04/2024 7:07 AM [facility] Creatinine 1.07 0.80 - 1.50 mg/dL 08/04/2024 7:07 AM [facility] Sodium 138 135 - 145 mMol/L 08/04/2024 7:07 AM [facility] Potassium 4.3 3.5 - 5.0 mMol/L 08/04/2024 7:07 AM [facility] Chloride 107 98 - 107 mMol/L 08/04/2024 7:07 AM [facility] Carbon Dioxide 23 22 - 31 mMol/L 08/04/2024 7:07 AM [facility] Anion Gap 8 5 - 15 mMol/L 08/04/2024 7:07 AM [facility] Calcium 8.5 8.5 - 10.5 mg/dL 08/04/2024 7:07 AM [facility] Est Glomerular Filtration Rate - Male 74 mL/min/1. 73 m?? 08/04/2024 7:07 AM [facility] Comment: This patient's estimated GFR [...] [facility] Co de Phone Number [facility] [place] [address] * (ABNORMAL) CBC (with Diff) (08/03/2024 5:16 AM EST) White Blood Cell 7.85 4.00 - 9.50 x10(3)/mc L 08/03/2024 5:29 AM [facility] Red Blood Cell 4.43(L) 4.58 - 5.54 x10(6)/mc L 08/03/2024 5:29 AM [facility] Hemoglobin 11.8(L) 13.7 - 16.5 g/dL 08/03/2024 5:29 AM [facility] Hematocrit 35.9(L) 40.5 - 48.5 % 08/03/2024 5:29 AM [facility] Mean Cell Volume 81.0(L) 82.9 - 93.1 fL 08/03/2024 5:29 AM [facility] Mean Cell Hemoglobin 26.6(L) 27.5 - 32.1 pg 08/03/2024 5:29 AM [facility] Mean Cell Hemoglobin Concentration 32.9 32.0 - 35.7 g/dL 08/03/2024 5:29 AM [facility] Platelet 142(L) 145 - 357 x10(3)/mc L 08/03/2024 5:29 AM [facility] Mean Platelet Volume 10.5 7.6 - 12.9 fL 08/03/2024 5:29 AM [facility] RDW Standard Deviation 42.5 36.0 - 45.0 fL 08/03/2024 5:29 AM [facility] RDW coefficient of variation 14.2(H) 11.4 - 13.8 % 08/03/2024 5:29 AM [facility] NRBC% auto 0.0 % 08/03/2024 5:29 AM [facility] NRBC Absolute <0.01 <0.01 x10(3)/mc L 08/03/2024 5:29 AM [facility] Neutrophil % 75.2 % 08/03/2024 5:29 AM [facility] Neutrophil Absolute (ANC) - Automated 5.91 1.70 - 6.10 x10(3)/mc L 08/03/2024 5:29 AM [facility] Lymph % 13.4 % 08/03/2024 5:29 AM [facility] Lymph Absolute 1.05 0.90 - 3.20 x10(3)/mc L 08/03/2024 5:29 AM [facility] Monocyte % 9.0 % 08/03/2024 5:29 AM EST [facility] Monocyte Absolute 0.71 0.30 - 0.90 x10(3)/mc L 08/03/2024 5:29 AM [facility] Eos % 1.7 % 08/03/2024 5:29 AM [facility] Eos Absolute 0.13 0.00 - 0.40 x10(3)/mc L 08/03/2024 5:29 AM EST [facility] Basophil % 0.4 % 08/03/2024 5:29 AM [facility] Baso Absolute <0.04 0.00 - 0.10 x10(3)/mc L 08/03/2024 5:29 AM [facility] Immature Gran % 0.3 % 5:29 AM [facility] Immature Gran Absolute <0.04 0.00 - 0.04 x10(3)/mc L 08/03/2024 5:29 AM [facility] Blood VENOUS BLOOD SPECIMEN / Unknown Venipuncture / Unknown 08/03/2024 5:16 AM EST 08/03/2024 5:23 AM EST Bridgette Stauffer MD HEMATOLOGY ORDERABLE S [facility] [place] [address] * Magnesium (08/03/2024 5:16 AM EST) Magnesium 0.89 0.69 - 1.07 mMol/L 08/03/2024 5:56 AM EST [facility] Blood VENOUS BLOOD SPECIMEN / Unknown Venipuncture / Unknown 08/03/2024 5:16 AM EST 08/03/2024 5:23 AM EST Bridgette Stauffer MD CHEMISTRY ORDERABLES [facility] [place] [address] * (ABNORMAL) Basic Metabolic Panel (08/03/2024 5:16 AM EST) Glucose 98 65 - 199 mg/dL 08/03/2024 5:56 AM [facility] Comment:Glucose Concentratio n >=200 mg/dL plus symptoms is consistent with Diabetes Mellitus. Blood Urea Nitrogen 16 10 - 20 mg/dL 08/03/2024 5:56 AM [facility] Creatinine 0.85 0.80 - 1.50 mg/dL 08/03/2024 5:56 AM [facility] Sodium 137 135 - 145 mMol/L 08/03/2024 5:56 AM [facility] Potassium 4.5 3.5 - 5.0 mMol/L 08/03/2024 5:56 AM [facility] Chloride 106 98 - 107 mMol/L 08/03/2024 5:56 AM [facility] Carbon Dioxide 21(L) 22 - 31 mMol/L 08/03/2024 5:56 AM [facility] Anion Gap 10 5 - 15 mMol/L 08/03/2024 5:56 AM [facility] Calcium 8.3(L) 8.5 - 10.5 mg/dL 08/03/2024 5:56 AM [facility] Est Glomerular Filtration Rate - Male 92 mL/min/1. 73 m?? 08/03/2024 5:56 AM [facility] Comment: This patient's estimated GFR [...] Stauffer MD CHEMISTRY ORDERABLES Performing Organization Address [facility] Co de Phone Number [facility] [place] [address] * POC, GLUCOSE (08/02/2024 7:47 AM EST) [facility] Glucometer, POC 89 65 - 199 mg/dL 08/02/2024 7:47 AM EST [facility] Comment:Supplemental ranges: <140 mg/dL before meals <180 mg/dL all other times of the day. Blood CAPILLARY BLOOD / Unknown 08/02/2024 7:47 AM EST 08/02/2024 7:47 AM EST Krystal Parker MD POINT OF CARE TEST O RDERABLES Performing Organization Address [facility] Co de Phone Number [facility] [place] [address] * (ABNORMAL) CBC (with Diff) (08/02/2024 4:20 AM EST) [facility] White Blood Cell 8.51 4.00 - 9.50 x10(3)/mc L 08/02/2024 4:50 AM [facility] Red Blood Cell 4.41(L) 4.58 - 5.54 x10(6)/mc L 08/02/2024 4:50 AM [facility] Hemoglobin 12.2(L) 13.7 - 16.5 g/dL 08/02/2024 4:50 AM [facility] Hematocrit 35.8(L) 40.5 - 48.5 % 08/02/2024 4:50 AM [facility] Mean Cell Volume 81.2(L) 82.9 - 93.1 fL 08/02/2024 4:50 AM [facility] Mean Cell Hemoglobin 27.7 27.5 - 32.1 pg 08/02/2024 4:50 AM [facility] Mean Cell Hemoglobin Concentration 34.1 32.0 - 35.7 g/dL 08/02/2024 4:50 AM [facility] Platelet 111(L) 145 - 357 x10(3)/mc L 08/02/2024 4:50 AM [facility] Mean Platelet Volume 11.1 7.6 - 12.9 fL 08/02/2024 4:50 AM [facility] RDW Standard Deviation 41.9 36.0 - 45.0 fL 08/02/2024 4:50 AM [facility] RDW coefficient of variation 14.1(H) 11.4 - 13.8 % 08/02/2024 4:50 AM [facility] NRBC% auto 0.0 % 08/02/2024 4:50 AM [facility] NRBC Absolute <0.01 <0.01 x10(3)/mc L 08/02/2024 4:50 AM [facility] Neutrophil % 77.7 % 08/02/2024 4:50 AM [facility] Neutrophil Absolute (ANC) - Automated 6.62(H) 1.70 - 6.10 x10(3)/mc L 08/02/2024 4:50 AM [facility] Lymph % 11.9 % 08/02/2024 4:50 AM [facility] Lymph Absolute 1.01 0.90 - 3.20 x10(3)/mc L 08/02/2024 4:50 AM [facility] Monocyte % 8.2 % 08/02/2024 4:50 AM [facility] Monocyte Absolute 0.70 0.30 - 0.90 x10(3)/mc L 08/02/2024 4:50 AM [facility] Eos % 1.4 % 08/02/2024 4:50 AM [facility] Eos Absolute 0.12 0.00 - 0.40 x10(3)/mc L 08/02/2024 4:50 AM EST [facility] Basophil % 0.4 % 08/02/2024 4:50 AM EST [facility] Baso Absolute <0.04 0.00 - 0.10 x10(3)/mc L 08/02/2024 4:50 AM [facility] Immature Gran % 0.4 % 4:50 AM EST [facility] Immature Gran Absolute <0.04 0.00 - 0.04 x10(3)/mc L 08/02/2024 4:50 AM [facility] Blood VENOUS BLOOD SPECIMEN / Unknown Venipuncture / Unknown 08/02/2024 4:20 AM EST 08/02/2024 4:37 AM EST Bridgette Stauffer MD HEMATOLOGY ORDERABLE S Performing Organization Address City/[facility]/ZIP Co de Phone Number [facility] [place] [address] * Magnesium (08/02/2024 4:20 AM EST) Pathologist [facility] Magnesium 0.79 0.69 - 1.07 mMol/L 08/02/2024 5:06 AM [facility] Blood VENOUS BLOOD SPECIMEN / Unknown Venipuncture / Unknown 08/02/2024 4:20 AM EST 08/02/2024 4:37 AM EST Bridgette Stauffer MD CHEMISTRY ORDERABLES [facility] [place] [address] * (ABNORMAL) Basic Metabolic Panel (08/02/2024 4:20 AM EST) Glucose 110 65 - 199 mg/dL 08/02/2024 5:06 AM [facility] Comment:Glucose Concentratio n >=200 mg/dL plus symptoms is consistent with Diabetes Mellitus. Blood Urea Nitrogen 12 10 - 20 mg/dL 08/02/2024 5:06 AM [facility] Creatinine 0.90 0.80 - 1.50 mg/dL 08/02/2024 5:06 AM [facility] Sodium 139 135 - 145 mMol/L 08/02/2024 5:06 AM [facility] Potassium 4.0 3.5 - 5.0 mMol/L 08/02/2024 5:06 AM [facility] Chloride 108(H) 98 - 107 mMol/L 08/02/2024 5:06 AM [facility] Carbon Dioxide 23 22 - 31 mMol/L 08/02/2024 5:06 AM [facility] Anion Gap 8 5 - 15 mMol/L 08/02/2024 5:06 AM [facility] Calcium 8.1(L) 8.5 - 10.5 mg/dL 08/02/2024 5:06 AM [facility] Est Glomerular Filtration Rate - Male 91 mL/min/1. 73 m?? 08/02/2024 5:06 AM [facility] Comment: This patient's estimated GFR [...] MD CHEMISTRY ORDERABLES [facility] [place] [address] * Potassium (08/01/2024 8:39 PM EST) Potassium 4.0 3.5 - 5.0 mMol/L 08/01/2024 9:21 PM EST [facility] Blood VENOUS BLOOD SPECIMEN / Unknown Venipuncture / Unknown 08/01/2024 8:39 PM EST 08/01/2024 8:51 PM EST Jay Silverio MD CHEMISTRY ORDERABL ES Performing Organization Address City/[facility]/ZIP Co de Phone Number [facility] [place] [address] * POC, GLUCOSE (08/01/2024 8:35 PM EST) Glucometer, POC 112 65 - 199 mg/dL 08/01/2024 8:36 PM EST [facility] Comment:Supplemental ranges: <140 mg/dL before meals <180 mg/dL all other times of the day. Blood CAPILLARY BLOOD / Unknown 08/01/2024 8:35 PM EST 08/01/2024 8:36 PM EST Krystal Parker MD POINT OF CARE TEST O RDKAY Performing Organization Address [facility] Co de Phone Number [facility] [place] [address] * POC, GLUCOSE (08/01/2024 4:55 PM EST) [...] [facility]/ZIP Co de Phone Number [facility] [place] [address] * POC, GLUCOSE (08/01/2024 12:42 PM EST) Glucometer, POC 130 65 - 199 mg/dL 08/01/2024 12:43 PM EST [facility] Comment:Supplemental ranges: <140 mg/dL before meals <180 mg/dL all other times of the day. Blood CAPILLARY BLOOD / Unknown 08/01/2024 12:42 PM EST 08/01/2024 12:43 PM EST Krystal Parker MD POINT OF CARE TEST O JOSH [facility] [place] [address] * (ABNORMAL) Cooximetry, POC (08/01/2024 10:45 AM EST) pO2, Coox 32 mmHg 08/01/2024 10:48 AM [facility] Hemoglobin, Coox 12.9(L) 13.7 - 16.5 g/dL 08/01/2024 10:48 AM [facility] Oxyhemoglobin, Coox 66.7 % 08/01/2024 10:48 AM [facility] Carboxyhemoglo bin, Coox 1.1 % 08/01/2024 10:48 AM [facility] Comment: Nonsmokers: 0.5-1.5% COHB ?? Smokers: Variable ??but usually less than 10% ?? Toxic: 20-30% COHB ?? Lethal: Greater than 60% COHB Methemoglobin, Coox 0.3 <=1.5 % 08/01/2024 10:48 AM [facility] Blood (Mixed Venous) 08/01/2024 10:45 AM EST 08/01/2024 10:48 AM EST Krystal Parker MD POINT OF CARE TEST O RDERASHAY [facility] [place] [address] * Potassium (08/01/2024 8:20 AM EST) [facility] Potassium 4.0 3.5 - 5.0 mMol/L 08/01/2024 10:17 AM EST [facility] Blood ARTERIAL BLOOD / Unknown Venipuncture / Unknown 08/01/2024 8:20 AM EST 08/01/2024 8:30 AM EST Jay Silverio MD CHEMISTRY ORDERABL ES Performing Organization Address City/[facility]/ZIP Co de Phone Number [facility] [place] [address] * POC, GLUCOSE (08/01/2024 7:44 AM EST) [facility] Glucometer, POC 86 65 - 199 mg/dL 08/01/2024 7:44 AM EST [facility] Comment:Supplemental ranges: <140 mg/dL before meals <180 mg/dL all other times of the day. Blood CAPILLARY BLOOD / Unknown 08/01/2024 7:44 AM EST 08/01/2024 7:44 AM EST Krystal Parekr MD POINT OF CARE TEST O RDERABLES [facility] [place] [address] * (ABNORMAL) CBC (with Diff) (08/01/2024 4:18 AM EST) [facility] White Blood Cell 8.51 4.00 - 9.50 x10(3)/mc L 08/01/2024 4:53 AM EST [facility] Red Blood Cell 4.12(L) 4.58 - 5.54 x10(6)/mc L 08/01/2024 4:53 AM EST [facility] Hemoglobin 11.2(L) 13.7 - 16.5 g/dL 08/01/2024 4:53 AM EST [facility] Hematocrit 33.8(L) 40.5 - 48.5 % 08/01/2024 4:53 AM [facility] Mean Cell Volume 82.0(L) 82.9 - 93.1 fL 08/01/2024 4:53 AM [facility] Mean Cell Hemoglobin 27.2(L) 27.5 - 32.1 pg 08/01/2024 4:53 AM [facility] Mean Cell Hemoglobin Concentration 33.1 32.0 - 35.7 g/dL 08/01/2024 4:53 AM [facility] Platelet 94(L) 145 - 357 x10(3)/mc L 08/01/2024 4:53 AM [facility] Mean Platelet Volume 10.9 7.6 - 12.9 fL 08/01/2024 4:53 AM [facility] RDW Standard Deviation 44.2 36.0 - 45.0 fL 08/01/2024 4:53 AM [facility] RDW coefficient of variation 14.7(H) 11.4 - 13.8 % 08/01/2024 4:53 AM [facility] NRBC% auto 0.0 % 08/01/2024 4:53 AM [facility] NRBC Absolute <0.01 <0.01 x10(3)/mc L 08/01/2024 4:53 AM [facility] Neutrophil % 82.7 % 08/01/2024 4:53 AM [facility] Neutrophil Absolute (ANC) - Automated 7.04(H) 1.70 - 6.10 x10(3)/mc L 08/01/2024 4:53 AM [facility] Lymph % 8.6 % 08/01/2024 4:53 AM [facility] Lymph Absolute 0.73(L) 0.90 - 3.20 x10(3)/mc L 08/01/2024 4:53 AM [facility] Monocyte % 7.6 % 08/01/2024 4:53 AM [facility] Monocyte Absolute 0.65 0.30 - 0.90 x10(3)/mc L 08/01/2024 4:53 AM [facility] Eos % 0.5 % 08/01/2024 4:53 AM [facility] Eos Absolute 0.04 0.00 - 0.40 x10(3)/mc L 08/01/2024 4:53 AM [facility] Basophil % 0.2 % 08/01/2024 4:53 AM [facility] Baso Absolute <0.04 0.00 - 0.10 x10(3)/mc L 08/01/2024 4:53 AM [facility] Immature Gran % 0.4 % 4:53 AM [facility] Immature Gran Absolute <0.04 0.00 - 0.04 x10(3)/mc L 08/01/2024 4:53 AM [facility] Blood VENOUS BLOOD SPECIMEN / Unknown Venipuncture / Unknown 08/01/2024 4:18 AM EST 08/01/2024 4:29 AM EST Bridgtete Stauffer MD HEMATOLOGY ORDERABLE S [facility] [place] [address] * Magnesium (08/01/2024 4:18 AM EST) Magnesium 0.74 0.69 - 1.07 mMol/L 08/01/2024 5:00 AM EST [facility] Blood VENOUS BLOOD SPECIMEN / Unknown Venipuncture / Unknown 08/01/2024 4:18 AM EST 08/01/2024 4:29 AM EST Bridgette Stauffer MD CHEMISTRY ORDERABLES [facility] [place] [address] * (ABNORMAL) Basic Metabolic Panel (08/01/2024 4:18 AM EST) Glucose 107 65 - 199 mg/dL 08/01/2024 5:00 AM [facility] Comment:Glucose Concentratio n >=200 mg/dL plus symptoms is consistent with Diabetes Mellitus. Blood Urea Nitrogen 8(L) 10 - 20 mg/dL 08/01/2024 5:00 AM [facility] Creatinine 0.82 0.80 - 1.50 mg/dL 08/01/2024 5:00 AM [facility] Sodium 137 135 - 145 mMol/L 08/01/2024 5:00 AM [facility] Potassium 3.9 3.5 - 5.0 mMol/L 08/01/2024 5:00 AM [facility] Chloride 108(H) 98 - 107 mMol/L 08/01/2024 5:00 AM [facility] Carbon Dioxide 21(L) 22 - 31 mMol/L 08/01/2024 5:00 AM [facility] Anion Gap 8 5 - 15 mMol/L 08/01/2024 5:00 AM [facility] Calcium 7.7(L) 8.5 - 10.5 mg/dL 08/01/2024 5:00 AM [facility] Est Glomerular Filtration Rate - Male 93 mL/min/1. 73 m?? 08/01/2024 5:00 AM [facility] Comment: This patient's estimated GFR [...] Stauffer MD CHEMISTRY ORDERABLES Performing Organization Address [facility] de Phone Number [facility] [place] [address] * POC, GLUCOSE (07/31/2024 8:41 PM EST) [facility] Signature Glucometer, POC 73 65 - 199 mg/dL 07/31/2024 8:41 PM EST [facility] Comment:Supplemental ranges: <140 mg/dL before meals <180 mg/dL all other times of the day. Blood CAPILLARY BLOOD / Unknown 07/31/2024 8:41 PM EST 07/31/2024 8:41 PM EST Krystal Parker MD POINT OF CARE TEST O RDERABLES Performing Organization Address [facility] Phone Number [facility] [place] [phone] * CARDIAC CATHETERIZATION (07/31/2024 5:53 PM EST) Anatomical Region Laterality Modality Other Narrative 08/01/2024 12:37 PM EST ?[facility] ? Cardiac Catheterization/Intervention Report ? Patient Name: Korey Montoya ? Procedure Date: 07/31/2024 ? A #: [id number] ? Primary Physician: Maldonado Luis ? Case #: [id number] ? File Name: [id number] ? Catheterization Order Number: [id number] ? [facility] ? Final Report [place], [place] ? Patient Name: ? Korey P. Montoya ?ID#: ?[id number] ? : ?1950 ? Procedure Date: ? [...] ? Comments: ?Impella removed from the right [employer] with deployment of Perclose and ?Angioseal. ??Good [...] Procedure Note Maldonado Lusi MD - 08/01/2024 [facility] Cardiac Catheterization/Intervention Report Patient Name: Korey MontoyaToby Procedure Date: 07/31/2024 A #: [id number] Primary Physician: Maldonado Luis Case #: [id number] File Name: [id number] Catheterization Order Number: [id number] [facility] FinalReport [place], [place] Patient Name: Korey Montoya ID#:[id number] :1950 Procedure Date: July 31, 2024 Case [...] designated as ASA Class IV. The [facility] clinical frailtyscale is 4: Vulnerable. Diagnostic [...] procedures. Comments: Impella removed from the right [employer] with deployment of Perclose and Angioseal. Good [...] TEST O RDERABLES [facility] [place] [phone] * (ABNORMAL) Blood Gas, Arterial POC (07/31/2024 8:29 AM EST) [facility] Signature pH, Arterial 7.48(H) 7.35 - 7.45 07/31/2024 8:30 AM [facility] PCO2, Arterial 29(L) 35 - 45 mmHg 07/31/2024 8:30 AM [facility] PO2, Arterial 71(L) 85 - 104 mmHg 07/31/2024 8:30 AM [facility] Bicarbonate, Arterial 20.6 20.0 - 26.0 mmol/L 07/31/2024 8:30 AM [facility] Base Excess, Arterial -3.0 -3.0 - 3.0 mmol/L 07/31/2024 8:30 AM [facility] Hemoglobin, Arterial 12.3(L) 13.7 - 16.5 g/dL 07/31/2024 8:30 AM [facility] Oxyhemoglobin, Arterial 94.4 94.0 - 97.0 % 07/31/2024 8:30 AM [facility] Carboxyhemoglobin , Arterial 0.7 % 07/31/2024 8:30 AM [facility] Comment: Nonsmokers: 0.5-1.5% COHB ?? Smokers: Variable ??but usually less than 10% ?? Toxic: 20-30% COHB ?? Lethal: Greater than 60% COHB Methemoglobin, Arterial 0.3 <=1.5 % 07/31/2024 8:30 AM [facility] Sodium, Arterial 138 135 - 145 mmol/L 07/31/2024 8:30 AM [facility] Potassium, Arterial 3.5 3.5 - 5.0 mmol/L 07/31/2024 8:30 AM [facility] Chloride, Arterial 109(H) 98 - 107 mmol/L 07/31/2024 8:30 AM [facility] Lactate, Arterial 0.8 0.5 - 2.2 mmol/L 07/31/2024 8:30 AM [facility] Fraction of Inspired Oxygen 21 % 07/31/2024 8:30 AM [facility] PF Ratio 338 Ratio 07/31/2024 8:30 AM [facility] Comment:PF ratio calculated using the non-temperature corrected pO2 result. IONIZED CALCIUM, ARTERIAL 1.08(L) 1.15 - 1.33 mmol/L 07/31/2024 8:30 AM [facility] Glucose, Arterial 86 65 - 199 mg/dL 07/31/2024 8:30 AM [facility] Comment:Glucose Concentratio n >=200 mg/dL plus symptoms is consistent with Diabetes Mellitus. Blood ARTERIAL BLOOD / Unknown 07/31/2024 8:29 AM EST 07/31/2024 8:30 AM EST Krystal Parker MD POINT OF CARE TEST O RDERABLES [facility] [place] [address] * POC, GLUCOSE (07/31/2024 7:47 AM EST) Pathologist [facility] Glucometer, POC 82 65 - 199 mg/dL 07/31/2024 7:53 AM [facility] Comment:Supplemental ranges: <140 mg/dL before meals <180 mg/dL all other times of the day. Blood CAPILLARY BLOOD / Unknown 07/31/2024 7:47 AM EST 07/31/2024 7:53 AM EST Krystal Parker MD POINT OF CARE TEST O RDERABLES [facility] [place] [address] * (ABNORMAL) CBC (with Diff) (07/31/2024 1:08 AM EST) [facility] White Blood Cell 10.25(H) 4.00 - 9.50 x10(3)/mc L 07/31/2024 1:28 AM [facility] Red Blood Cell 4.13(L) 4.58 - 5.54 x10(6)/mc L 07/31/2024 1:28 AM [facility] Hemoglobin 11.2(L) 13.7 - 16.5 g/dL 07/31/2024 1:28 AM [facility] Hematocrit 33.9(L) 40.5 - 48.5 % 07/31/2024 1:28 AM [facility] Mean Cell Volume 82.1(L) 82.9 - 93.1 fL 07/31/2024 1:28 AM [facility] Mean Cell Hemoglobin 27.1(L) 27.5 - 32.1 pg 07/31/2024 1:28 AM [facility] Mean Cell Hemoglobin Concentration 33.0 32.0 - 35.7 g/dL 07/31/2024 1:28 AM [facility] Platelet 109(L) 145 - 357 x10(3)/mc L 07/31/2024 1:28 AM [facility] Mean Platelet Volume 10.4 7.6 - 12.9 fL 07/31/2024 1:28 AM [facility] RDW Standard Deviation 45.1(H) 36.0 - 45.0 fL 07/31/2024 1:28 AM [facility] RDW coefficient of variation 15.1(H) 11.4 - 13.8 % 07/31/2024 1:28 AM [facility] NRBC% auto 0.0 % 07/31/2024 1:28 AM [facility] NRBC Absolute <0.01 <0.01 x10(3)/mc L 07/31/2024 1:28 AM [facility] Neutrophil % 79.7 % 07/31/2024 1:28 AM [facility] Neutrophil Absolute (ANC) - Automated 8.17(H) 1.70 - 6.10 x10(3)/mc L 07/31/2024 1:28 AM [facility] Lymph % 12.8 % 07/31/2024 1:28 AM [facility] Lymph Absolute 1.31 0.90 - 3.20 x10(3)/mc L 07/31/2024 1:28 AM [facility] Monocyte % 6.9 % 07/31/2024 1:28 AM [facility] Monocyte Absolute 0.71 0.30 - 0.90 x10(3)/mc L 07/31/2024 1:28 AM [facility] Eos % 0.1 % 07/31/2024 1:28 AM [facility] Eos Absolute <0.04 0.00 - 0.40 x10(3)/mc L 07/31/2024 1:28 AM [facility] Basophil % 0.3 % 07/31/2024 1:28 AM [facility] Baso Absolute <0.04 0.00 - 0.10 x10(3)/mc L 07/31/2024 1:28 AM [facility] Immature Gran % 0.2 % 1:28 AM [facility] Immature Gran Absolute <0.04 0.00 - 0.04 x10(3)/mc L 07/31/2024 1:28 AM [facility] Blood VENOUS BLOOD SPECIMEN / Unknown Venipuncture / Unknown 07/31/2024 1:08 AM EST 07/31/2024 1:18 AM EST Bridgette Stauffer MD HEMATOLOGY ORDERABLE S Performing Organization Address [facility] Co de Phone Number [facility] [place] [address] * Magnesium (07/31/2024 1:08 AM EST) Pathologist [facility] Magnesium 0.89 0.69 - 1.07 mMol/L 07/31/2024 1:46 AM [facility] Blood VENOUS BLOOD SPECIMEN / Unknown Venipuncture / Unknown 07/31/2024 1:08 AM EST 07/31/2024 1:18 AM EST Bridgette Stauffer MD CHEMISTRY ORDERABLES Performing Organization Address City/[facility] Co de Phone Number [facility] [place] [address] * (ABNORMAL) Basic Metabolic Panel (07/31/2024 1:08 AM EST) Glucose 97 65 - 199 mg/dL 07/31/2024 1:46 AM [facility] Comment:Glucose Concentratio n >=200 mg/dL plus symptoms is consistent with Diabetes Mellitus. Blood Urea Nitrogen 11 10 - 20 mg/dL 07/31/2024 1:46 AM [facility] Creatinine 0.96 0.80 - 1.50 mg/dL 07/31/2024 1:46 AM [facility] Sodium 140 135 - 145 mMol/L 07/31/2024 1:46 AM [facility] Potassium 4.1 3.5 - 5.0 mMol/L 07/31/2024 1:46 AM EST [facility] Chloride 110(H) 98 - 107 mMol/L 07/31/2024 1:46 AM [facility] Carbon Dioxide 24 22 - 31 mMol/L 07/31/2024 1:46 AM [facility] Anion Gap 6 5 - 15 mMol/L 07/31/2024 1:46 AM [facility] Calcium 7.7(L) 8.5 - 10.5 mg/dL 07/31/2024 1:46 AM [facility] Est Glomerular Filtration Rate - Male 84 mL/min/1. 73 m?? 07/31/2024 1:46 AM [facility] Comment: This patient's estimated GFR [...] MD CHEMISTRY ORDERABLES [facility] [place] [address] * (ABNORMAL) Hepatic Function Panel (07/31/2024 1:08 AM EST) Albumin 3.1(L) 3.2 - 5.2 g/dL 07/31/2024 1:46 AM EST [facility] Aspartate Aminotransferase 192(H) <=39 unit/L 07/31/2024 1:46 AM [facility] Alanine Aminotransferase 59(H) 0 - 55 unit/L 07/31/2024 1:46 AM [facility] Alkaline Phosphatase 46 40 - 130 unit/L 07/31/2024 1:46 AM [facility] Bilirubin, Total 0.4 <=1.3 mg/dL 07/31/2024 1:46 AM [facility] Bilirubin, Direct <0.2 0.0 - 0.3 mg/dL 07/31/2024 1:46 AM [facility] Protein, Total 5.0(L) 6.1 - 8.0 g/dL 07/31/2024 1:46 AM [facility] Blood VENOUS BLOOD SPECIMEN / Unknown Venipuncture / Unknown 07/31/2024 1:08 AM EST 07/31/2024 1:18 AM EST Krystal Parker MD CHEMISTRY ORDERABLES Performing Organization Address City/[facility] Co de Phone Number [facility] [place] [address] * POC, GLUCOSE (07/30/2024 8:03 PM EST) Glucometer, POC 86 65 - 199 mg/dL 07/30/2024 8:03 PM [facility] Comment:Supplemental ranges: <140 mg/dL before meals <180 mg/dL all other times of the day. Blood CAPILLARY BLOOD / Unknown 07/30/2024 8:03 PM EST 07/30/2024 8:03 PM EST Krystal Parker MD POINT OF CARE TEST O RDERABLES Performing Organization Address City/[facility]/ZIP Co de Phone Number [facility] [place] [address] * Potassium (07/30/2024 8:03 PM EST) Potassium 3.8 3.5 - 5.0 mMol/L 07/30/2024 9:13 PM EST [facility] Blood VENOUS BLOOD SPECIMEN / Unknown Venipuncture / Unknown 07/30/2024 8:03 PM EST 07/30/2024 8:22 PM EST Jay Silverio MD CHEMISTRY ORDERABL ES Performing Organization Address [facility] Co de Phone Number [facility] [place] [address] * POC, GLUCOSE (07/30/2024 6:23 PM EST) Glucometer, POC 93 65 - 199 mg/dL 07/30/2024 6:24 PM EST [facility] Comment:Supplemental ranges: <140 mg/dL before meals <180 mg/dL all other times of the day. Blood CAPILLARY BLOOD / Unknown 07/30/2024 6:23 PM EST 07/30/2024 6:24 PM EST Krystal Parker MD POINT OF CARE TEST O JOSH Performing Organization Address [facility] Co de Phone Number [facility] [place] [address] * POC, GLUCOSE (07/30/2024 5:08 PM EST) Glucometer, POC 78 65 - 199 mg/dL 07/30/2024 5:08 PM EST [facility] Comment:Supplemental ranges: <140 mg/dL before meals <180 mg/dL all other times of the day. Blood CAPILLARY BLOOD / Unknown 07/30/2024 5:08 PM EST 07/30/2024 5:08 PM EST Krystal Parker MD POINT OF CARE TEST O JOSH Performing Organization Address [facility] Co de Phone Number [facility] [place] [address] * (ABNORMAL) Phosphorus (07/30/2024 3:08 PM EST) Phosphorus 2.1(L) 2.5 - 4.5 mg/dL 07/30/2024 3:58 PM EST [facility] Blood VENOUS BLOOD SPECIMEN / Unknown Venipuncture / Unknown 07/30/2024 3:08 PM EST 07/30/2024 3:12 PM EST Jay Silverio MD CHEMISTRY ORDERABL ES Performing Organization Address City/[facility]/ZIP Co de Phone Number [facility] [place] [address] * Magnesium (07/30/2024 3:08 PM EST) Magnesium 0.90 0.69 - 1.07 mMol/L 07/30/2024 3:58 PM EST [facility] Blood VENOUS BLOOD SPECIMEN / Unknown Venipuncture / Unknown 07/30/2024 3:08 PM EST 07/30/2024 3:12 PM EST Jay Silverio MD CHEMISTRY ORDERABL ES Performing Organization Address City/[facility]/ZIP Co de Phone Number [facility] [place] [address] * (ABNORMAL) Basic Metabolic Panel (07/30/2024 3:08 [...] 135 - 145 mMol/L 07/30/2024 4:17 PM [facility] Potassium 3.4(L) 3.5 - 5.0 mMol/L 07/30/2024 4:17 PM [facility] Chloride 109(H) 98 - 107 mMol/L 07/30/2024 4:17 PM EST [facility] Carbon Dioxide 21(L) 22 [...] [facility] Co de Phone Number [facility] [place] [address] * ECHO LMTD W CONTRAST W LMTD SPEC DOPP COLOR DOPP (07/30/2024 11:42 AM EST) Anatomical Region Laterality Modality Cardiac Other 07/30/2024 10:2 2 AM EST Narrative 07/30/2024 12:34 PM EST [address] [place] [address] ? Echocardiogram Report Name: KOREY MONTOYA Kyrie ? Study Date: 07/30/2024 10:22 AMBP: 124/66 mmHg : 1950 ? Height: 168 cm ? Account: [id number] Age: 74 yrs ? Weight: 65 kg Gender: Male ?BSA: 1.7 m2 Ordering Physician: Jay Silverio MD Referring Physician: CHAPARRO FERRERA Performed By: OMERO Millan Reason For Study: ST elevation myocardial infarction involving left anterior descending (LAD) coronary artery Interpreting Fellow: Ivan Hernandez. Exam Location: [facility]. Interpretation Summary Left ventricle is [...] Compared to the overnight study by the lathe operator contact lens fellow the impella position is stable. 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 Procedure Limited - 10625. Image enhancement Definity was used for both [...] Procedure Note Kathleen Banda MD - 07/30/[address] [place], [place] [id number] Echocardiogram Report Name: LARA KOREY Kyrie Study Date: 410:22 AMBP: 124/66 mmHg : 1950 Height: 168 cm Account: [id number] Age: 74 yrs Weight: 65 kg Gender: Male BSA: 1.7 m2 Ordering Physician: Jay Silverio MD Referring Physician: CHAPARRO FERRERA Performed By: OMERO Millan Reason For Study: ST elevation myocardial infarction involving leftanterior descending (LAD) coronary artery Interpreting Fellow: Ivan Hernandez. Exam Location: [facility]. Interpretation Summary Left ventricle is [...] Compared to the overnight study by the lathe operator contact lens fellow the impella positionis stable. The global left ventricular systolic function has improvedpredominantly via recruitment outside the LAD territory which remains akinetic. Procedure Limited - 77939. Image enhancement Definity was used for both [...] * POC, GLUCOSE (07/30/2024 11:17 AM EST) [facility] Glucometer, POC 97 65 - 199 mg/dL 07/30/2024 11:17 AM EST [facility] Comment:Supplemental ranges: <140 mg/dL before meals <180 mg/dL all other times of the day. Blood CAPILLARY BLOOD / Unknown 07/30/2024 11:17 AM EST 07/30/2024 11:17 AM EST Jay Silverio MD POINT OF CARE TEST ORDERABLES Performing Organization Address City/State/[facility] Co de Phone Number [facility] [place] [address] * (ABNORMAL) Blood Gas, Arterial POC (07/30/2024 8:16 AM EST) [facility] Signature pH, Arterial 7.44 7.35 - 7.45 07/30/2024 8:17 AM [facility] PCO2, Arterial 29(L) 35 - 45 mmHg 07/30/2024 8:17 AM [facility] PO2, Arterial 109(H) 85 - 104 mmHg 07/30/2024 8:17 AM [facility] Bicarbonate, Arterial 19.4(L) 20.0 - 26.0 mmol/L 07/30/2024 8:17 AM [facility] Base Excess, Arterial -4.7(L) -3.0 - 3.0 mmol/L 07/30/2024 8:17 AM [facility] Hemoglobin, Arterial 12.2(L) 13.7 - 16.5 g/dL 07/30/2024 8:17 AM [facility] Oxyhemoglobin, Arterial 97.1(H) 94.0 - 97.0 % 07/30/2024 8:17 AM [facility] Carboxyhemoglob in, Arterial 1.0 % 07/30/2024 8:17 AM [facility] Comment: Nonsmokers: 0.5-1.5% COHB ?? Smokers: Variable ??but usually less than 10% ?? Toxic: 20-30% COHB ?? Lethal: Greater than 60% COHB Methemoglobin, Arterial 0.1 <=1.5 % 07/30/2024 8:17 AM [facility] Sodium, Arterial 132(L) 135 - 145 mmol/L 07/30/2024 8:17 AM [facility] Potassium, Arterial 3.9 3.5 - 5.0 mmol/L 07/30/2024 8:17 AM [facility] Chloride, Arterial 105 98 - 107 mmol/L 07/30/2024 8:17 AM [facility] Lactate, Arterial 1.2 0.5 - 2.2 mmol/L 07/30/2024 8:17 AM [facility] Fraction of Inspired Oxygen 21 % 07/30/2024 8:17 AM [facility] PF Ratio 519 Ratio 07/30/2024 8:17 AM [facility] Comment:PF ratio calculated using the non-temperature corrected pO2 result. IONIZED CALCIUM, ARTERIAL 1.15 1.15 - 1.33 mmol/L 07/30/2024 8:17 AM [facility] Blood ARTERIAL BLOOD / Unknown 07/30/2024 8:16 AM EST 07/30/2024 8:17 AM EST Jay Silverio MD POINT OF CARE TEST ORDERABLES [facility] [place] [address] * (ABNORMAL) Troponin - Single (07/30/2024 8:09 [...] Access Hospital Laboratory Test Catalog Troponin - [email or web address] Reference: Fourth Kingsley Definition of Myocardial Infarction. Journal of the [employer] [employer] 2018;72:7745-0681 Blood VENOUS BLOOD SPECIMEN / Unknown Venipuncture / Unknown 07/30/2024 8:09 AM EST 07/30/2024 8:26 AM EST Jay Silverio MD CHEMISTRY ORDERABL ES [facility] [place] [address] * POC, GLUCOSE (07/30/2024 7:40 AM EST) Pathologist [facility] Glucometer, POC 111 65 - 199 mg/dL 07/30/2024 7:40 AM EST [facility] Comment:Supplemental ranges: <140 mg/dL before meals <180 mg/dL all other times of the day. Blood CAPILLARY BLOOD / Unknown 07/30/2024 7:40 AM EST 07/30/2024 7:40 AM EST Jay Silverio MD POINT OF CARE TEST ORDERABLES [facility] [place] [address] * (ABNORMAL) CBC (with Diff) (07/30/2024 2:11 AM EST) White Blood Cell 11.25(H) 4.00 - 9.50 x10(3)/mc L 07/30/2024 2:33 AM [facility] Red Blood Cell 4.50(L) 4.58 - 5.54 x10(6)/mc L 07/30/2024 2:33 AM [facility] Hemoglobin 12.2(L) 13.7 - 16.5 g/dL 07/30/2024 2:33 AM [facility] Hematocrit 37.1(L) 40.5 - 48.5 % 07/30/2024 2:33 AM [facility] Mean Cell Volume 82.4(L) 82.9 - 93.1 fL 07/30/2024 2:33 AM [facility] Mean Cell Hemoglobin 27.1(L) 27.5 - 32.1 pg 07/30/2024 2:33 AM [facility] Mean Cell Hemoglobin Concentration 32.9 32.0 - 35.7 g/dL 07/30/2024 2:33 AM [facility] Platelet 166 145 - 357 x10(3)/mc L 07/30/2024 2:33 AM [facility] Mean Platelet Volume 10.6 7.6 - 12.9 fL 07/30/2024 2:33 AM [facility] RDW Standard Deviation 44.6 36.0 - 45.0 fL 07/30/2024 2:33 AM [facility] RDW coefficient of variation 14.6(H) 11.4 - 13.8 % 07/30/2024 2:33 AM [facility] NRBC% auto 0.0 % 07/30/2024 2:33 AM [facility] NRBC Absolute <0.01 <0.01 x10(3)/mc L 07/30/2024 2:33 AM [facility] Neutrophil % 88.9 % 07/30/2024 2:33 AM [facility] Neutrophil Absolute (ANC) - Automated 10.00(H) 1.70 - 6.10 x10(3)/mc L 07/30/2024 2:33 AM [facility] Lymph % 5.1 % 07/30/2024 2:33 AM [facility] Lymph Absolute 0.57(L) 0.90 - 3.20 x10(3)/mc L 07/30/2024 2:33 AM [facility] Monocyte % 5.4 % 07/30/2024 2:33 AM [facility] Monocyte Absolute 0.61 0.30 - 0.90 x10(3)/mc L 07/30/2024 2:33 AM [facility] Eos % 0.0 % 07/30/2024 2:33 AM [facility] Eos Absolute <0.04 0.00 - 0.40 x10(3)/mc L 07/30/2024 2:33 AM [facility] Basophil % 0.2 % 07/30/2024 2:33 AM [facility] Baso Absolute <0.04 0.00 - 0.10 x10(3)/mc L 07/30/2024 2:33 AM [facility] Immature Gran % 0.4 % 2:33 AM [facility] Immature Gran Absolute 0.05(H) 0.00 - 0.04 x10(3)/mc L 07/30/2024 2:33 AM [facility] Blood VENOUS BLOOD SPECIMEN / Unknown Venipuncture / Unknown 07/30/2024 2:11 AM EST 07/30/2024 2:22 AM EST Bridgtete Stauffer MD HEMATOLOGY ORDERABLE S [facility] [place] [address] * Magnesium (07/30/2024 2:11 AM EST) Magnesium 1.01 0.69 - 1.07 mMol/L 07/30/2024 2:51 AM [facility] Blood VENOUS BLOOD SPECIMEN / Unknown Venipuncture / Unknown 07/30/2024 2:11 AM EST 07/30/2024 2:22 AM EST Bridgette Stauffer MD CHEMISTRY ORDERABLES Performing Organization Address City/[facility] Co de Phone Number [facility] [place] [address] * (ABNORMAL) Basic Metabolic Panel (07/30/2024 2:11 AM EST) Glucose 190 65 - 199 mg/dL 07/30/2024 2:51 AM [facility] Comment:Glucose Concentratio n >=200 mg/dL plus symptoms is consistent with Diabetes Mellitus. Blood Urea Nitrogen 15 10 - 20 mg/dL 07/30/2024 2:51 AM [facility] Creatinine 0.88 0.80 - 1.50 mg/dL 07/30/2024 2:51 AM [facility] Sodium 135 135 - 145 mMol/L 07/30/2024 2:51 AM [facility] Potassium 4.9 3.5 - 5.0 mMol/L 07/30/2024 2:51 AM [facility] Chloride 105 98 - 107 mMol/L 07/30/2024 2:51 AM [facility] Carbon Dioxide 19(L) 22 - 31 mMol/L 07/30/2024 2:51 AM [facility] Anion Gap 11 5 - [...] MD CHEMISTRY ORDERABLES [facility] [place] [address] * (ABNORMAL) Cooximetry, POC (07/30/2024 1:00 AM EST) pO2, Coox 28 mmHg 07/30/2024 1:03 AM EST [facility] Hemoglobin, Coox 12.7(L) 13.7 - 16.5 g/dL 07/30/2024 1:03 AM EST [facility] Oxyhemoglobin, Coox 54.9 % 07/30/2024 1:03 AM EST [facility] Carboxyhemoglo bin, Coox 1.0 % 07/30/2024 1:03 AM EST [facility] Comment: Nonsmokers: 0.5-1.5% COHB ?? Smokers: Variable ??but usually less than 10% ?? Toxic: 20-30% COHB ?? Lethal: Greater than 60% COHB Methemoglobin, Coox 0.0 <=1.5 % 07/30/2024 1:03 AM [facility] Blood (Mixed Venous) 07/30/2024 1:00 AM EST 07/30/2024 1:03 AM EST Jay Silverio MD POINT OF CARE TEST ORDERABLES [facility] [place] [address] * (ABNORMAL) Blood Gas, Arterial POC (07/30/2024 12:57 AM EST) pH, Arterial 7.38 7.35 - 7.45 07/30/2024 12:58 AM [facility] PCO2, Arterial 34(L) 35 - 45 mmHg 07/30/2024 12:58 AM [facility] PO2, Arterial 141(H) 85 - 104 mmHg 07/30/2024 12:58 AM [facility] Bicarbonate, Arterial 19.5(L) 20.0 - 26.0 mmol/L 07/30/2024 12:58 AM [facility] Base Excess, Arterial -5.6(L) -3.0 - 3.0 mmol/L 07/30/2024 12:58 AM [facility] Hemoglobin, Arterial 13.0(L) 13.7 - 16.5 g/dL 07/30/2024 12:58 AM [facility] Oxyhemoglobin, Arterial 98.4(H) 94.0 - 97.0 % 07/30/2024 12:58 AM [facility] Carboxyhemoglobin , Arterial 0.4 % 07/30/2024 12:58 AM [facility] Comment: Nonsmokers: 0.5-1.5% COHB ?? Smokers: Variable ??but usually less than 10% ?? Toxic: 20-30% COHB ?? Lethal: Greater than 60% COHB Methemoglobin, Arterial 0.1 <=1.5 % 07/30/2024 12:58 AM [facility] Sodium, Arterial 130(L) 135 - 145 mmol/L 07/30/2024 12:58 AM [facility] Potassium, Arterial 4.5 3.5 - 5.0 mmol/L 07/30/2024 12:58 AM [facility] Chloride, Arterial 104 98 - 107 mmol/L 07/30/2024 12:58 AM [facility] Lactate, Arterial 1.3 0.5 - 2.2 mmol/L 07/30/2024 12:58 AM [facility] Flow Rate 2.0 L/min 07/30/2024 12:58 AM [facility] IONIZED CALCIUM, ARTERIAL 1.12(L) 1.15 - 1.33 mmol/L 07/30/2024 12:58 AM [facility] Glucose, Arterial 184 65 - 199 mg/dL 07/30/2024 12:58 AM [facility] Comment:Glucose Concentratio n >=200 mg/dL plus symptoms is consistent with Diabetes Mellitus. Blood ARTERIAL BLOOD / Unknown 07/30/2024 12:57 AM EST 07/30/2024 12:58 AM EST Jay Silverio MD POINT OF CARE TEST ORDERABLES [facility] [place] [address] * (ABNORMAL) Troponin - Single (07/29/2024 10:31 [...] Access Hospital Laboratory Test Catalog Troponin - [email or web address] Reference: Fourth Kingsley Definition of Myocardial Infarction. Journal of the [place] [employer] 2018;72:1448-8327 Blood VENOUS BLOOD SPECIMEN / Unknown Venipuncture / Unknown 07/29/2024 10:31 PM EST 07/29/2024 10:36 PM EST Yrn Ward MD CHEMISTRY ORDERABL ES Performing Organization Address City/[facility]/ZIP Co de Phone Number [facility] [place] [address] * Potassium (07/29/2024 8:11 PM EST) Potassium 4.1 3.5 - 5.0 mMol/L 07/29/2024 8:52 PM EST [facility] Blood VENOUS BLOOD SPECIMEN / Unknown Venipuncture / Unknown 07/29/2024 8:11 PM EST 07/29/2024 8:16 PM EST Jay Silverio MD CHEMISTRY ORDERABL ES [facility] [place] [address] * (ABNORMAL) Troponin - Single (07/29/2024 8:11 [...] Access Hospital Laboratory Test Catalog Troponin - [email or web address] Reference: Fourth Kingsley Definition of Myocardial Infarction. Journal of the [place]iology 2018;72:0480-2452 Blood VENOUS BLOOD SPECIMEN / Unknown Venipuncture / Unknown 07/29/2024 8:11 PM EST 07/29/2024 8:16 PM EST Jay Silverio MD CHEMISTRY ORDERABL ES Performing Organization Address City/State/[facility] Co de Phone Number [facility] [place] [address] * (ABNORMAL) Phosphorus (07/29/2024 8:11 PM EST) Phosphorus 2.1(L) 2.5 - 4.5 mg/dL 07/29/2024 8:52 PM EST [facility] Blood VENOUS BLOOD SPECIMEN / Unknown Venipuncture / Unknown 07/29/2024 8:11 PM EST 07/29/2024 8:16 PM EST Jay Silverio MD CHEMISTRY ORDERABL ES Performing Organization Address [facility] Co de Phone Number [facility] [place] [address] * POC, GLUCOSE (07/29/2024 8:09 PM EST) Glucometer, POC 142 65 - 199 mg/dL 07/29/2024 8:09 PM EST [facility] Comment:Supplemental ranges: <140 mg/dL before meals <180 mg/dL all other times of the day. Blood CAPILLARY BLOOD / Unknown 07/29/2024 8:09 PM EST 07/29/2024 8:09 PM EST Jay Silverio MD POINT OF CARE TEST ORDERABLES Performing Organization Address [facility] Co de Phone Number [facility] [place] [address] * ABORH RECHECK (07/29/2024 6:43 PM EST) Pathologist [facility] ABORH Recheck AB POSITIVE 07/29/2024 10:13 PM EST [facility] Blood VENOUS BLOOD SPECIMEN / Unknown Venipuncture / Unknown 07/29/2024 6:43 PM EST 07/29/2024 7:15 PM EST Jay Silverio MD BLOOD BANK LAB ORD ERABLES Performing Organization Address [facility] Co de Phone Number [facility] [place] [address] * POC, GLUCOSE (07/29/2024 5:57 PM EST) [...] [facility]/ZIP Co de Phone Number [facility] [place] [address] * [place] and screen [place] [place]AL[place] (07/29/2024 5:56 PM EST) [facility] ABORH Type AB POSITIVE 07/29/2024 9:44 [...] LABORATORY T&S only valid at [facility] 07/29/2024 9:44 PM EST [facility] Blood VENOUS BLOOD SPECIMEN / Unknown Venipuncture / Unknown 07/29/2024 5:56 PM EST 07/29/2024 6:07 PM EST Narrative [facility] - 07/29/2024 9:44 PM EST This Type and Screen result is only valid at the [facility] Jay Silverio MD BLOOD BANK LAB ORD ERABLES Performing Organization Address City/[facility] Co de Phone Number [facility] [place] [address] * (ABNORMAL) Troponin - Single (07/29/2024 4:52 PM EST) [facility] Troponin-T, High Sensitivity >10,000(H ) [...] Access Hospital Laboratory Test Catalog Troponin - [email or web address] Reference: Fourth Kingsley Definition of Myocardial Infarction. Journal of the [employer] College of [employer]iology 2018;72:7027-6283 Blood VENOUS BLOOD SPECIMEN / Unknown Venipuncture / Unknown 07/29/2024 4:52 PM EST 07/29/2024 4:57 PM EST Jay Silverio MD CHEMISTRY ORDERABL ES Performing Organization Address [facility]/ZIP Co de Phone Number [facility] [place] [address] * EKG 12 Lead (07/29/2024 4:21 PM EST) Ventricular rate 72 BPM MUSE SYSTEM Atrial Rate 72 BPM MUSE SYSTEM P-R Interval 168 ms MUSE SYSTEM QRS Duration 82 ms MUSE SYSTEM Q-T Interval 392 ms MUSE SYSTEM QTC Calculated (Bezet) 429 ms MUSE SYSTEM Calculated P [place] 71 degrees MUSE SYSTEM Calculated R [place] 77 degrees MUSE SYSTEM Calculated T [place] 28 degrees MUSE SYSTEM INTERPRETATION Sinus rhythm with Premature supraventricular complexes and Occasional Premature ventricular complexes Low voltage QRS 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) Lateral injury pattern ACUTE MN / STEMI Abnormal ECG When compared with [...] 7.37 7.35 - 7.45 07/29/2024 4:22 PM [facility] PCO2, Arterial 36 35 - 45 mmHg 07/29/2024 4:22 PM [facility] PO2, Arterial 71(L) 85 - 104 mmHg 07/29/2024 4:22 PM [facility] Bicarbonate, Arterial 20.4 20.0 - 26.0 mmol/L 07/29/2024 4:22 PM [facility] Base Excess, Arterial -4.8(L) -3.0 - 3.0 mmol/L 07/29/2024 4:22 PM [facility] Hemoglobin, Arterial 12.2(L) 13.7 - 16.5 g/dL 07/29/2024 4:22 PM [facility] Oxyhemoglobin, Arterial 93.8(L) 94.0 - 97.0 % 07/29/2024 4:22 PM [facility] Carboxyhemoglobin , Arterial 0.5 % 07/29/2024 4:22 PM [facility] Comment: Nonsmokers: 0.5-1.5% COHB ?? Smokers: Variable ??but usually less than 10% ?? Toxic: 20-30% COHB ?? Lethal: Greater than 60% COHB Methemoglobin, Arterial 0.3 <=1.5 % 07/29/2024 4:22 PM [facility] Sodium, Arterial 134(L) 135 - 145 mmol/L 07/29/2024 4:22 PM [facility] Potassium, Arterial 4.2 3.5 - 5.0 mmol/L 07/29/2024 4:22 PM [facility] Chloride, Arterial 107 98 - 107 mmol/L 07/29/2024 4:22 PM [facility] Lactate, Arterial 1.5 0.5 - 2.2 mmol/L 07/29/2024 4:22 PM EST [facility] Fraction of Inspired Oxygen 21 % 07/29/2024 4:22 PM [facility] PF Ratio 338 Ratio 07/29/2024 4:22 PM [facility] Comment:PF ratio calculated using the non-temperature corrected pO2 result. IONIZED CALCIUM, ARTERIAL 1.12(L) 1.15 - 1.33 mmol/L 07/29/2024 4:22 PM [facility] Glucose, Arterial 181 65 - 199 mg/dL 07/29/2024 4:22 PM [facility] Comment:Glucose Concentratio n >=200 mg/dL plus symptoms is consistent with Diabetes Mellitus. Blood ARTERIAL BLOOD / Unknown 07/29/2024 4:21 PM EST 07/29/2024 4:22 PM EST Jay Silverio MD POINT OF CARE TEST ORDERABLES Performing Organization Address City/[facility]/ZIP Co de Phone Number [facility] [place] [address] * POC, GLUCOSE (07/29/2024 4:19 PM EST) Glucometer, POC 185 65 - 199 mg/dL 07/29/2024 4:19 PM [facility] Comment:Supplemental ranges: <140 mg/dL before meals <180 mg/dL all other times of the day. Blood CAPILLARY BLOOD / Unknown 07/29/2024 4:19 PM EST 07/29/2024 4:19 PM EST Jay Silverio MD POINT OF CARE TEST ORDERABLES [facility] [place] [address] * Blood culture (07/29/2024 4:08 PM EST) Blood Culture No growth at 120 hours 08/03/2024 5:01 PM EST [facility] Blood VENOUS BLOOD SPECIMEN / Unknown Venipuncture / Unknown 07/29/2024 4:08 PM EST 07/29/2024 4:15 PM EST Jay Silverio MD MICROBIOLOGY - BLO OD ORDERABLES Performing Organization Address [facility] Co de Phone Number [facility] [place] [address] * Blood culture (07/29/2024 4:08 PM EST) Blood Culture No growth at 120 hours 08/03/2024 5:01 PM EST [facility] Blood VENOUS BLOOD SPECIMEN / Unknown Venipuncture / Unknown 07/29/2024 4:08 PM EST 07/29/2024 4:26 PM EST Jay Silverio MD MICROBIOLOGY - BLO OD ORDERABLES Performing Organization Address [facility] de Phone Number [facility] [place] [phone] * XR Chest One View (07/29/2024 2:30 PM EST) WORKSTATION ID [id number] RAD Anatomical Region Laterality Modality Chest N/A [...] questions please contact the health child care group leader that requested your imaging first. ? Electronically signed by: Chris Candelaria MD, [facility] ([phone]), at 07/29/2024 3:21 PM Narrative 07/29/2024 3:21 [...] have questions please contactthe health child care group leader that requested your imaging first. Electronically signed by: Chris Candelaria MD, [facility]([phone]), at 07/29/2024 3:21 PM Vahe Marvin MD IMG DX ORDERABLES * (ABNORMAL) APTT (07/29/2024 2:03 PM EST) [facility] Partial Thromboplastin Time >160([facility]) 25 - 37 sec 07/29/2024 2:56 PM EST [facility] Blood VENOUS BLOOD SPECIMEN / Unknown Venipuncture / Unknown 07/29/2024 2:03 PM EST 07/29/2024 2:13 PM EST Vahe Marvin MD HEMATOLOGY ORDERABLE S Performing Organization Address City/[facility]/ZIP Co de Phone Number [facility] [place] [address] * (ABNORMAL) Prothrombin Time (07/29/2024 2:03 PM [...] MD HEMATOLOGY ORDERABLE S Performing Organization Address [facility] Co de Phone Number [facility] [place] [address] * CRP, acute inflammation (07/29/2024 2:03 PM EST) C-Reactive Protein <3.0 <=4.9 mg/L 07/29/2024 2:52 PM EST [facility] Blood VENOUS BLOOD SPECIMEN / Unknown Venipuncture / Unknown 07/29/2024 2:03 PM EST 07/29/2024 2:14 PM EST Vahe Marvin MD CHEMISTRY ORDERABLES [facility] [place] [address] * Lipid Panel (Reflex Direct LDL) (07/29/2024 2:03 PM EST) Cholesterol, Total 133 mg/dL 07/29/2024 2:52 PM [facility] Comment: Desirable: < 200 mg/dL Borderline High: 200 - 239 mg/dL High: > or = 240 mg/dL Triglyceride 45 mg/dL 07/29/2024 2:52 PM [facility] Comment: Normal: <150 mg/dL Borderline High: 150-199 mg/dL High: 200-499 mg/dL Very High: > or =500 mg/dL HDL Cholesterol 58 mg/dL 2:52 PM [facility] Comment:Males: High Risk: <4 0 mg/dL LDL Cholesterol 64 mg/dL 2:52 PM [facility] Comment: Desirable: <100 mg/dL Above Desirable: 100-129 mg/dL Borderline High: 130-159 mg/dL High: 160-189 mg/dL Very High: > or =190 mg/dL Note: LDL calculation updated to the NIH LDL formula as of 04/15/2024 Non-HDL Cholesterol 75 mg/dL 07/29/2024 2:52 PM [facility] Comment: Desirable: <130 mg/dL Above [...] MD CHEMISTRY ORDERABLES [facility] [place] [address] * TSH [place] (07/29/2024 2:03 PM EST) Thyroid Stimulating Hormone 0.70 0.27 - 4.20 mcIU/mL 07/29/2024 2:52 PM EST [facility] Blood VENOUS BLOOD SPECIMEN / Unknown Venipuncture / Unknown 07/29/2024 2:03 PM EST 07/29/2024 2:14 PM EST Vahe Marvin MD CHEMISTRY ORDERABLES [facility] [place] [address] * Hemoglobin A1c (07/29/2024 2:03 PM EST) Pathologist [facility] Hemoglobin A1c 5.3 4.3 - 5.6 % [...] red blood cell turnover may not be jewelry sales representative of glycemic control. Reference Interval: [...] into estimated average glucose values. ??Diabetes Care 2008:31(8):0164-6704. Additional resources are available on the ADA website (diabetes.org). Vahe Marvin MD CHEMISTRY ORDERABLES [facility] [place] [address] * (ABNORMAL) CBC (with Diff) (07/29/2024 2:03 PM EST) White Blood Cell 19.50(H) 4.00 - 9.50 x10(3)/mc L 07/29/2024 2:18 PM EST [facility] Red Blood Cell 4.81 4.58 - 5.54 x10(6)/mc L 07/29/2024 2:18 PM [facility] Hemoglobin 13.1(L) 13.7 - 16.5 g/dL 07/29/2024 2:18 PM [facility] Hematocrit 40.1(L) 40.5 - 48.5 % 07/29/2024 2:18 PM EST [facility] Mean Cell Volume 83.4 82.9 - 93.1 fL 07/29/2024 2:18 PM EST [facility] Mean Cell Hemoglobin 27.2(L) 27.5 - 32.1 pg 07/29/2024 2:18 PM [facility] Mean Cell Hemoglobin Concentration 32.7 32.0 - 35.7 g/dL 07/29/2024 2:18 PM [facility] Platelet 236 145 - 357 x10(3)/mc L 07/29/2024 2:18 PM [facility] Mean Platelet Volume 10.6 7.6 - 12.9 fL 07/29/2024 2:18 PM [facility] RDW Standard Deviation 43.7 36.0 - 45.0 fL 07/29/2024 2:18 PM [facility] RDW coefficient of variation 14.3(H) 11.4 - 13.8 % 07/29/2024 2:18 PM [facility] NRBC% auto 0.0 % 07/29/2024 2:18 PM [facility] NRBC Absolute <0.01 <0.01 x10(3)/mc L 07/29/2024 2:18 PM [facility] Neutrophil % 93.6 % 07/29/2024 2:18 PM [facility] Neutrophil Absolute (ANC) - Automated 18.28(H) 1.70 - 6.10 x10(3)/mc L 07/29/2024 2:18 PM [facility] Lymph % 2.7 % 07/29/2024 2:18 PM [facility] Lymph Absolute 0.52(L) 0.90 - 3.20 x10(3)/mc L 07/29/2024 2:18 PM [facility] Monocyte % 2.9 % 07/29/2024 2:18 PM [facility] Monocyte Absolute 0.56 0.30 - 0.90 x10(3)/mc L 07/29/2024 2:18 PM [facility] Eos % 0.0 % 07/29/2024 2:18 PM [facility] Eos Absolute <0.04 0.00 - 0.40 x10(3)/mc L 07/29/2024 2:18 PM [facility] Basophil % 0.3 % 07/29/2024 2:18 PM [facility] Baso Absolute 0.05 0.00 - 0.10 x10(3)/mc L 07/29/2024 2:18 PM [facility] Immature Gran % 0.5 % 2:18 PM [facility] Immature Gran Absolute 0.09(H) 0.00 - 0.04 x10(3)/mc L 07/29/2024 2:18 PM [facility] Blood VENOUS BLOOD SPECIMEN / Unknown Venipuncture / Unknown 07/29/2024 2:03 PM EST 07/29/2024 2:13 PM EST Vahe Marvin MD HEMATOLOGY ORDERABLE S [facility] [place] [address] * Phosphorus (07/29/2024 2:03 PM EST) Phosphorus 2.5 2.5 - 4.5 mg/dL 07/29/2024 2:52 PM EST [facility] Blood VENOUS BLOOD SPECIMEN / Unknown Venipuncture / Unknown 07/29/2024 2:03 PM EST 07/29/2024 2:14 PM EST Vahe Marvin MD CHEMISTRY ORDERABLES Performing Organization Address City/[facility]/ZIP Co de Phone Number [facility] [place] [address] * Magnesium (07/29/2024 2:03 PM EST) Pathologist [facility] Magnesium 0.70 0.69 - 1.07 mMol/L 07/29/2024 2:52 PM EST [facility] Blood VENOUS BLOOD SPECIMEN / Unknown Venipuncture / Unknown 07/29/2024 2:03 PM EST 07/29/2024 2:14 PM EST Vahe Marvin MD CHEMISTRY ORDERABLES Performing Organization Address City/[facility]/ZIP Co de Phone Number [facility] [place] [address] * (ABNORMAL) Comprehensive metabolic panel (07/29/2024 2:03 PM EST) Glucose 243(H) 65 - 199 mg/dL 07/29/2024 3:11 PM EST [facility] Comment:Glucose Concentratio n >=200 mg/dL plus symptoms is consistent with Diabetes Mellitus. Blood Urea Nitrogen 13 10 - 20 mg/dL 07/29/2024 3:11 PM EST [facility] Creatinine 0.88 0.80 - 1.50 mg/dL 07/29/2024 3:11 PM [facility] Sodium 138 135 - 145 mMol/L 07/29/2024 3:11 PM [facility] Potassium 3.6 3.5 - 5.0 mMol/L 07/29/2024 3:11 PM [facility] Chloride 104 98 - 107 mMol/L 07/29/2024 3:11 PM [facility] Carbon Dioxide 19(L) 22 - 31 mMol/L 07/29/2024 3:11 PM [facility] Anion Gap 15 5 - 15 mMol/L 07/29/2024 3:11 PM [facility] Calcium 8.0(L) 8.5 - 10.5 mg/dL 07/29/2024 3:11 PM [facility] Protein, Total 6.0(L) 6.1 - 8.0 g/dL 07/29/2024 3:11 PM [facility] Albumin 3.6 3.2 - 5.2 g/dL 07/29/2024 3:11 PM [facility] Aspartate Aminotransferase 07/29/2024 3:11 PM [facility] Comment:Unable to report due to hemolysis. Alanine Aminotransferase 56(H) 0 - 55 unit/L 07/29/2024 3:11 PM [facility] Alkaline Phosphatase 58 40 - 130 unit/L 07/29/2024 3:11 PM [facility] Bilirubin, Total 0.5 <=1.3 mg/dL 07/29/2024 3:11 PM [facility] Est Glomerular Filtration Rate - Male 91 mL/min/1. 73 m?? 07/29/2024 3:11 PM [facility] Comment: This patient's estimated GFR [...] MD CHEMISTRY ORDERABLES [facility] [place] [address] * (ABNORMAL) Troponin - Single (07/29/2024 2:03 [...] Access [facility] Test Catalog Troponin - [email or web address] Reference: Fourth Kingsley Definition of Myocardial Infarction. Journal of the [employer] 2018;72:5676-1922 Blood VENOUS BLOOD SPECIMEN / Unknown Venipuncture / Unknown 07/29/2024 2:03 PM EST 07/29/2024 2:14 PM EST Vahe Marvin MD CHEMISTRY ORDERABLES [facility] [place] [address] * (ABNORMAL) Blood Gas, Venous POC (07/29/2024 2:01 PM EST) pH, Venous 7.30(L) 7.32 - 7.42 07/29/2024 2:02 PM [facility] PCO2, Venous 42 38 - 58 mmHg 07/29/2024 2:02 PM [facility] PO2, Venous 39 16 - 65 mmHg 07/29/2024 2:02 PM [facility] Bicarbonate, Venous 20.1(L) 22 - 31 mmol/L 07/29/2024 2:02 PM [facility] Base Excess, Venous -6.4(L) 1.9 - 4.5 mmol/L 07/29/2024 2:02 PM [facility] Hemoglobin, Venous 14.2 13.7 - 16.5 g/dL 07/29/2024 2:02 PM [facility] Oxyhemoglobin, Venous 69.3 % 07/29/2024 2:02 PM [facility] Carboxyhemoglobin , Venous 0.8 % 07/29/2024 2:02 PM [facility] Comment: Nonsmokers: 0.5-1.5% COHB ?? Smokers: Variable ??but usually less than 10% ?? Toxic: 20-30% COHB ?? Lethal: Greater than 60% COHB Methemoglobin, Venous 0.3 <=1.5 % 07/29/2024 2:02 PM EST [facility] Sodium, Venous 137 135 - 145 mmol/L 07/29/2024 2:02 PM [facility] Potassium, Venous 3.6 3.5 - 5.0 mmol/L 07/29/2024 2:02 PM [facility] Chloride, Venous 103 98 - [...] [facility] Co de Phone Number [facility] [place] [address] * CARDIAC CATHETERIZATION (07/29/2024 1:20 PM EST) Anatomical Region Laterality Modality Other Narrative 07/29/2024 2:02 PM EST ?[facility] ? Cardiac Catheterization/Intervention Report ? Patient Name: Korey Montoya Driss ? Procedure Date: 07/29/2024 ? A #: [id number] ? Primary Physician: Vahe Marvin ? Case #: [id number] ? File Name: [id number] ? Catheterization Order Number: [id number] ? [facility] ? Final Report [place], [place] ? Patient Name: ? Korey P. Montoya ?ID#: ?[id number] ? : ?1950 ? Procedure Date: ? [...] was Emergent. The indication for ?the laboratory scientist visit is ACS less than or equal [...] 3.5 guiding catheter and a 3.5 Fr [place] [address] ??20 Mhz using ?Manual pullback. ??Imaging [...] A premounted 3.00 x 22 mm Jeison Mccracken (LOW) was deployed ? with a maximum [...] atmospheres. ??A premounted 3.00 x 08 mm Rudolph Mccracken (LOW) ? was deployed with a maximum [...] administered prior to arrival in the laboratory scientist. ?Recommended anti-platelet/anti-thrombotic regimen: ?Start aspirin 81 mg daily now and continue for 12 months then stop. ?Start clopidogrel 75 mg daily now and continue for indefinitely. ?These recommendations are made at the time of the intervention. Patient ?and provider preferences or a changing clinical situation may require ?modification of this regimen. Consult [facility] for ?questions. [...] able ?to start weaning his inotropes/vasopressors. A [place] Colette catheter was ?placed demonstrating improvement in his hemodynamics and the impella site ?was perclosed and hemostatic gauze was applied with excellent result. ?WIll transfer to the [facility] for further management. ?The attending physician was present for the entire procedure. ?Dr. Vahe Marvin M.D. was present during the moderate sedation ?intraservice time as documented by the sedation nurse. ??Case time = 01:26. ?Dr. Vahe Marvin M.D. performed the coronary angiography, left heart ?catheterization, IVUS # coronary, stent insertion-coronary, oximetry, ABG, ?transthoracic echo , ventricular assist device insertion, right heart ?catheterization, [place]wood (flow directed cath) insertion, access site ?angiography, vascular ultrasound, venous line / sheath insert and vascular ?closure device. ? Vahe Marvin M.D. ? Electronically Signed by: Vahe Marvin M.D. ? Report Finalized: 07/29/2024 ??13:55 ? Report Last Ammended: 09/20/2024 ??15:21 ? Procedure Note Vahe Marvin MD - 09/20/2024 [facility] Cardiac Catheterization/Intervention Report Patient Name: Korey Montoya Procedure Date: 07/29/2024 A #: [id number] Primary Physician: Vahe Marvin Case #: [id number] File Name: [id number] Catheterization Order Number: [id number] [facility] FinalReport [place], [place] Patient Name: Korey Montoya ID#:[id number] :1950 Procedure Date: July 29, 2024 Case [...] designated as ASA Class IV. The [facility] clinical frailtyscale is 4: Vulnerable. Diagnostic Tests: Electrocardiography: EKG was assessed by ECG. EKG was Abnormal. EKG showed STDeviation >= 0.5 mm. Medications Prior to Procedure: Angiotensin II Receptor Elvis and Statin. Indications for Diagnostic Cath: The priority of the diagnostic procedure was Emergent. Theindication for the laboratory scientist visit is ACS less than or equal [...] 3.5 guiding catheter and a 3.5 Fr [place] [facility] [address] 20 Mhzusing Manual pullback. Imaging was [...] priority for the procedure was Emergent.[facility] indication for the procedure [...] The lesion was predilated with a 2.00mm [id number] MM balloon with a maximum inflation pressure of 12atmospheres. A premounted 3.00 x 22 mm Rudolph Mccracken (LOW) wasdeployed with a maximum inflation pressure [...] atmospheres. A premounted 3.00 x 08 mm Rudolph Mccracken(LOW) was deployed with a maximum inflation pressure [...] administered prior to arrival in the laboratory scientist. Recommended anti-platelet/anti-thrombotic regimen: Start aspirin 81 mg daily now and continue for 12 months then stop. Start clopidogrel 75 mg daily now and continue for indefinitely. These recommendations are made at the time of the intervention.Patient and provider preferences or a changing clinical situation mayrequire modification of this regimen. [place] [facility] [place]iology[place] questions. The [...] wereable to start weaning his inotropes/vasopressors. A [place] Colette catheterwas placed demonstrating improvement in his [...] ventricular assist device insertion, right heart catheterization, Homewood (flow directed cath) insertion, access site angiography, vascular ultrasound, venous line / sheath insert andvascular closure device. Vahe Marvin M.D. Electronically Signed by: Vahe Marvin M.D. Report Finalized: 07/29/2024 13:55 Report Last Ammended: 09/20/2024 15:21 Vahe Marvin MD CARDIAC CATH ORDERAB LES * (ABNORMAL) BLOOD GAS, POC (07/29/2024 12:46 PM EST) Sodium, POC 139 135 - 145 mmol/L 07/30/2024 7:30 AM [facility] Potassium, POC 3.4(L) 3.5 - 5.0 mmol/L 07/30/2024 7:30 AM [facility] pH, POC 7.33(L) 7.35 - 7.45 07/30/2024 7:30 AM [facility] Ionized Calcium, POC 1.13(L) 1.15 - 1.33 mmol/L 07/30/2024 7:30 AM [facility] pCO2, POC 38 35 - 45 mmHg 07/30/2024 7:30 AM [facility] pO2, POC 94 85 - 104 mmHg 07/30/2024 7:30 AM [facility] Base Excess, POC -6.0(L) -3.0 - 3.0 mmol/L 07/30/2024 7:30 AM [facility] Hematocrit, POC 39.0(L) 40.5 - 48.5 %PCV 07/30/2024 7:30 AM [facility] Hemoglobin, POC 13.3(L) 13.7 - 16.5 g/dL 07/30/2024 7:30 AM [facility] Comment:The calculation of h emoglobin from hematocrit assumes a normal MCHC. Bicarbonate, POC 19.8(L) 20.0 - 26.0 mmol/L 07/30/2024 7:30 AM [facility] Carbon Dioxide, POC 21(L) 22 - 31 mmol/L 07/30/2024 7:30 AM [facility] Blood VENOUS BLOOD SPECIMEN / Unknown 07/29/2024 12:46 PM EST 07/30/2024 7:30 AM EST Vahe Marvin MD POINT OF CARE TEST O RDERABLES [facility] [place] [address] * (ABNORMAL) BLOOD GAS, POC (07/29/2024 12:12 PM EST) Sodium, POC 135 135 - 145 mmol/L 07/30/2024 7:30 AM [facility] Potassium, POC 3.8 3.5 - 5.0 mmol/L 07/30/2024 7:30 AM [facility] pH, POC 7.27(LLL) 7.35 - 7.45 07/30/2024 7:30 AM [facility] Ionized Calcium, POC 1.14(L) 1.15 - 1.33 mmol/L 07/30/2024 7:30 AM [facility] pCO2, POC 43 35 - 45 mmHg 07/30/2024 7:30 AM [facility] pO2, POC 131(H) 85 - 104 mmHg 07/30/2024 7:30 AM [facility] Base Excess, POC -7.0(L) -3.0 - 3.0 mmol/L 07/30/2024 7:30 AM [facility] Hematocrit, POC 36.0(L) 40.5 - 48.5 %PCV 07/30/2024 7:30 AM [facility] Hemoglobin, POC 12.2(L) 13.7 - 16.5 g/dL 07/30/2024 7:30 AM [facility] Comment:The calculation of h emoglobin from hematocrit assumes a normal MCHC. Bicarbonate, POC 19.7(L) 20.0 - 26.0 mmol/L 07/30/2024 7:30 AM [facility] Carbon Dioxide, POC 21(L) 22 - 31 mmol/L 07/30/2024 7:30 AM [facility] Blood VENOUS BLOOD SPECIMEN / Unknown 07/29/2024 12:12 PM EST 07/30/2024 7:30 AM EST Vahe Marvin MD POINT OF CARE TEST O RDERABLES [facility] [place] [address] documented in this encounter Visit Diagnoses Not [...] Watson RN) 0934 (Given - Provider: Tonya aWtson RN) empagliflozin (Jardiance) tablet 10 mg 10 [...] Routine documented in this encounter Care Teams Art Therapy Specialist Relationship Specialty Start Date End Date Alexia Mtz, PHARMACY SERVICES DIRECTOR [address] [place] [address] PCP - General Family Medicine 07/30/24 documented as of this encounter
--- OUTSIDE RECORDS SUMMARY | 2024-09-24 11:14 | XMS_ITS | Encounter Summary ---
[place] [address] Care Team Providers Care Agronomy Advisor Name Role Phone Alexia Mtz FREDRICK Primary Care Provider [phone] Encounter Details Date Type Department Care Team (Late st Contact Info) Description 07/29/2024 External [place] [id number] Social History Tobacco Use Types Packs/Day Years [...] any time in the past 12 m [facility], were you homeless or [...] 10:00 AM EST Office Visit Cardiology at [address] [address] Mushtaq Murphy APRN documented as of this encounter Procedures Procedure Name Priority Date/Time Associated Diagnosis Comments MISC EXTERNAL CARDIOLOGY RESULT Routine 07/29/2024 10:13 AM EST documented in this encounter Results * External Cardiology Result (07/29/2024 10:13 AM EST) Anatomical Region Laterality Modality Other Historical Provider EXTERNAL CARDIOLO GY RESULT documented in this encounter Visit Diagnoses Not on filedocumented in this encounter Care Teams Agronomy Advisor Relationship Specialty Start Date End Date Alexia Mtz APRN [address] [place] [address] PCP - General Family Medicine 07/30/24 documented as of this encounter
--- OUTSIDE RECORDS SUMMARY | 2024-09-24 11:14 | XMS_ITS | Encounter Summary ---
[place] [address] Care Team Providers Care Log Yard Derrick Operator Name Role Phone Yoel Artis FREDRICK Primary Care Provider [phone] Encounter Details Date Type Department Care Team (Late st Contact Info) Description 01/16/2024 Interpretation Only [facility] [address] [place] [address] Chaparro Montana MD [address] [place] [address] Social History Tobacco Use Types Packs/Day Years [...] AM EST Office Visit Cardiology at [address] [address] Mushtaq Murphy APRN documented as of this encounter Procedures Procedure Name Priority Date/Time Associated Diagnosis Comments CT HEAD WO CONTRAST (GENERIC) STAT 01/16/2024 4:17 PM EDT documented in this encounter Results * CT Head wo Contrast (Generic) (01/16/2024 4:17 PM EDT) PT CLASS E RAD ADMITDTTM [id number] [facility] PT RAD INFO [id number]^Haniss henry^Chaparro RAD EXAM DESC CTHEAD^CT Head w/o Contrast^RIS [facility] WORKSTATION ID [id number] [facility] Anatomical Region Laterality Modality Head Computed Tomogra phy 01/16/2024 4:03 PM EDT Impressions 01/16/2024 4:25 PM EDT No acute intracranial pathology. Thank you for letting us participate in the care of this patient. ??If you are a health care provider and have any questions regarding this report, please contact the number below. ??For patients who have questions please contact the health care clinician that requested your imaging first. ? Electronically signed by: Alejandro Tenorio MD, [facility] ([phone]), at 01/16/2024 4:25 PM Narrative 01/16/2024 4:25 PM EDT EXAMINATION: CT Head w/o Contrast CLINICAL HISTORY: fell last night from standing, contues to be dizzy. nl ms, no REN TECHNIQUE: CT head performed without intravenous contrast administration. COMPARISON: None FINDINGS: No intracranial hemorrhage, mass, mass effect, extra-axial fluid collection or ventriculomegaly. The calvarium is intact. Procedure Note Aljeandro Tenorio MD - 01/16/2024 EXAMINATION: CT Head [...] who have questions please contactthe health care clinician that requested your imaging first. Electronically signed by: Alejandro Tenorio MD, Radiology [place]([phone]), at 01/16/2024 4:25 PM Chaparro Montana MD IMG CT ORDERABLES documented in this encounter Visit Diagnoses Not on filedocumented in this encounter Care Teams Log Yard Derrick Operator Relationship Specialty Start Date End Date Yoel Artis APRN [address] [place] [address] PCP - General Internal Medicine 11/18/22 07/29/24 documented as of this encounter
--- OUTSIDE RECORDS SUMMARY | 2024-09-24 11:14 | XMS_ITS | Encounter Summary ---
[place] [address] Care Team Providers Care Die Casting Supervisor Name Role Phone Alexia Mtz AGRICULTURAL SCIENCES PROFESSOR Primary Care Provider [phone] Encounter Details Date Type Department Care Team (Late st Contact Info) Description 06/25/2024 Lab [place] [phone] Aubrey Cali MD [address] [place] [address] [id number] Pyuria Social History Tobacco Use Types Packs/Day [...] AM EST Office Visit Cardiology at [address] [phone] Mushtaq Murphy APRN documented as of this [...] Cali MD MICROBIOLOGY - GENER AL ORDERABLES [facility] [place] [address] documented in this encounter Visit Diagnoses Diagnosis Pyuria Other nonspecific finding on examination of urine documented in this encounter Care Teams Die Casting Supervisor Relationship Specialty Start Date End Date Alexia Mtz APRN [address] [place] [address] PCP - General Family Medicine 07/30/24 documented as of this encounter
--- OUTSIDE RECORDS SUMMARY | 2024-09-24 11:14 | XMS_ITS | Encounter Summary ---
[place] [address] Care Team Providers Care Women'S Swim Coach Name Role Phone Unknown Primary Care Provider Unavailabl e Encounter Details Date Type Department Care Team (Late st Contact Info) Description 12/03/2018 Interpretation Only [address] [address] Ac Albrecht PA [address] [place] [address] [place] [address] Social History Tobacco Use Types Packs/Day Years [...] AM EST Office Visit Cardiology at [address] [address] Mushtaq Murphy, MANAGER SPECIALTY documented as of this encounter Procedures Procedure [...] below. ? Electronically signed by: Darvin Noyola [facility] ([phone]), at 12/03/2018 1:33 PM Narrative 12/03/2018 1:38 [...] number below. Electronically signed by: Darvin Noyola [facility]([phone]), at 12/03/2018 1:33 PM Ac SERRANO IMG DX ORDERABLES documented in this encounter Visit Diagnoses Not on filedocumented in this encounter Care Teams Women'S Swim Coach Relationship Specialty Start Date End Date Unknown None PCP - General 08/04/10 01/16/19 documented as of this encounter
--- OUTSIDE RECORDS SUMMARY | 2024-09-24 11:14 | XMS_ITS | Encounter Summary ---
Author Organization [facility] [place] [address] Care Team Providers Care Fisher Crab Name Role Phone Yoel Artis Ute ALCALA Primary Care Provider [phone] Reason for Visit * Auth/Cert (Routine) Specialty Diagnoses / Procedures Referred By Theodore t Referred To Contact Diagnoses Anal spasm Fecal smearing Constipation, unspecified Rectal pain, fecal smearing Procedures PRO COLONOSCOPY, DIAGNOSTIC PRO COLONOSCOPY, BIOPSY PRO COLONOSCOPY, REMV LESN, SNARE COLONOSCOPY, DIAGNOSTIC (WRVU 3.26) Brandan Mcgovern MD [facility] [place] [address] [facility] Referral ID Status Reason Start Date Expiration Date Visits Re quested Visits Authorized [id number] 1 1 Encounter Details Date Type Department Care Team (Latest Contact Info) Description 08/30/2023 10:09 AM EST - 08/30/2023 12:19 PM [facility] Hospital En[place] [address] Brandan Mcgovern MD [facility] [place] [address] Discharge Disposition: Home Social History Tobacco Use [...] occurs, please contact your Doctor. Please call [phone] before 8pm Mon-Fri with problems, questions or concerns. If you call after 8pm or on weekends, call the Hospital at [phone] and ask to speak to the Dual Rate Supervisor loss prevention specialist and the rotary kiln operator will contact that person for you. When should you call for help? Call [phone] anytime you think you may need emergency [...] Where can you learn more? [facility] View your After Visit Summary and more online at [email or web address] If you would like to provide feedback about your hospital experience, please call the Office of Patient and Family Relations at . If you have received this After Visit Summary in error, please immediately return it in person to the department, or notify the [facility] Privacy Office by calling toll free at between the hours of 8AM and 5PM to arrange for our retrieval of the documents at no cost to you. Content Version: 12.2 ?? [id number] [employer]. Care instructions adapted under license by [facility]. If you have questions about a medical condition or this instruction, always ask your healthcare professional. [employer] disclaims any warranty or liability for your [...] evening. 04/17/2023 08/04/2024 nitroGLYcerin (NITROLINGUAL) 400 mcg/spray [place], Non-AerosolIndications:P roctalgia fugax,Fecal smearing,Constipation, unspecified constipation type [...] AM EST Office Visit Cardiology at [address] [address] Mushtaq Murphy APRN documented as of this encounter Procedures Procedure Name Priority Date/Time Associated Diagnosis Comments SPECIMEN TO PATHOLOGY Routine 08/30/2023 11:23 AM EST SURGICAL PATHOLOGY REPORT Routine 08/30/2023 11:21 AM EST COLONOSCOPY Routine 08/30/2023 10:57 AM EST Colonoscopy, Remv Jonin, Snare ([id number]) 08/30/2023 10:44 AM EST Proctalgia fugax Fecal smearing Constipation, unspecified constipation type documented in this encounter Results * Specimen to Pathology (08/30/2023 11:23 AM EST) AP Specimen 08/30/2023 11:2 3 AM EST 08/30/2023 11:[address] [facility] - 08/30/2023 11:23 AM EST Specimen requisition ordered. ??Separate Pathology report to follow Brandan Mcgovern MD PATHOLOGY/CYTOLOGY O RDKAY Performing Organization Address [facility] Co de Phone Number [facility] [place] [phone] * Surgical Pathology Report (08/30/2023 11:21 AM EST) Final Diagnosis [id number] ? Location: 4T; EA12; A The signing pathologist has (i) examined the relevant preparation(s) for the specimen(s) and (ii) rendered or confirmed the diagnosis(es). . ?Surgical Pathology DIAGNOSIS A - Sigmoid colon polyp, resection (Multiple): - ??Tubular adenoma. CR-PX Electronically signed by: ?Blake ORTEGA PhD, Yulia Verified: ??09/08/2023 14:48 ??Pathologist Performed at: ??-[facility] Dept. of Pathology, [place] [address] Supplier Quality: Fercho Chan MD, FCAP, ??CLIA Certificate: [id number] SPECIMEN(S) SUBMITTED A - Sigmoid colon polyp, [...] MD PATHOLOGY/CYTOLOGY O JOSH Performing Organization Address City/[facility]/ZIP Co de Phone Number [facility] [place] [phone] [place] [address] * COLONOSCOPY (08/30/2023 10:57 AM EST) COLONOSCOPY [facility] Endoscopy Procedure Date: 08/30/2023 10:57 AM ? Patient Name: Korey Montoya ? Date of : 1950 ? Age: 73 ? Order #: [id number] ? Instrument Name: [id number] ? Procedure: ? Colonoscopy Indications: ? Rectal pain Providers: ? Brandan Mcgovern, Tika Fwoler, Ty ? Aidan Referring MD: ?Yoel Artis [...] preparation was evaluated ? using the BBPS ([employer] Bowel ? Preparation Scale) with scores of: [...] RN) documented in this encounter Care Teams Fisher Crab Relationship Specialty Start Date End Date Yoel Artis APRN [address] [place] [address] PCP - General Internal Medicine 11/18/22 07/29/24 documented as of this encounter
--- OUTSIDE RECORDS SUMMARY | 2024-09-24 11:14 | XMS_ITS | Encounter Summary ---
[place] [address] Care Team Providers Care Surgical Brace Maker Name Role Phone Yoel Artis APRN Primary Care Provider [phone] Reason for Referral * Consultation (Routine) - Closed Specialty Diagnoses / Procedures Referred By Theodore muro Referred To Contact Gastroenterology Diagnoses Anal spasm motility- anal spasms Yoel Artis APRN [address] [place] [address] [facility] [address] [place] [address] Referral ID Status Reason Start Date Expiration Date V isits Requested Visits Authorized [id number] Closed Consult, Test & Treat PCP Updated and/or Approved 11/18/2022 11/18/2023 6 6 Encounter Details Date Type Department Care Team (Late st Contact Info) Description 11/18/2022 Transcribe Orders eDH Incoming Referrals [phone] Yoel Artis APRN [address] [place] [address] Anal spasm Social History Tobacco [...] AM EST Office Visit Cardiology at [address] [address] Mushtaq Murphy APRN Scheduled Referrals Name Type Priority Associated Diagnoses Order Schedule Referral to Gastroenterology Outpatient Referral Routine Anal spasm Ordered: 11/18/2022 documented as of this encounter Visit Diagnoses Diagnosis Anal spasm documented in this encounter Care Teams Surgical Brace Maker Relationship Specialty Start Date End Date Yoel Artis APRN [address] [place] [address] PCP - General Internal Medicine 11/18/22 07/29/24 documented as of this encounter
--- OUTSIDE RECORDS SUMMARY | 2024-09-24 11:14 | XMS_ITS | Encounter Summary ---
Author Organization [facility] [place] [address] Care Team Providers Care Solar Thermal Technician Name Role Phone Alexia Mtz INFANT CHILDCARE PROVIDER Primary Care Provider [phone] Encounter Details Date Type Department Care Team (Late st Contact Info) Description 04/23/2024 [place] [address] Alexia Mtz, INFANT CHILDCARE PROVIDER [address] [place], [place] [id number] Elevated prostate specific antigen (PSA) Social History [...] AM EST Office Visit Cardiology at [address] [address] Mushtaq Murphy APRN documented as of this encounter Procedures Procedure Name Priority Date/Time Associated Diagnosis Comments PSA (ULTRASENSITIVE), TOTAL AND FREE Routine 04/23/2024 1:09 PM EDT Elevated prostate specific antigen (PSA) documented in this encounter Results * (ABNORMAL) PSA (Ultrasensitive), total and free (04/23/2024 1:09 PM EDT) Prostate Specific Antigen (Ultrasensitive) 5.24(H) 0.00-4.00 ng/mL ng/ml 04/23/2024 5:18 PM EDT [facility] Comment:The reference interv al (0 [...] Free 1.1 ng/ml 04/23/2024 5:18 PM EDT [facility] Comment:This result was gene rated using a ControlScan Osiel immunoassay. Results obtained from other methods or manufacturers cannot be used interchangeably with this method. PSA % Free 21 % 04/23/2024 5:18 PM EDT [facility] Comment: Probability of finding STAFF SERVICES MANAGER on needle biopsy by age in years: % fPSA ? 50-59yrs ?? 60-69yrs ? >=70yrs ?? <=10 ?49.2 ?57.5 ?64.5 ?? 11-18 ? 26.9 ?33.9 ?40.8 ?? 19-25 ? 18.3 ?23.9 ?29.7 ?? >25 ?9.1 ?12.2 ?15.8 ?? This result was generated using a ControlScan Osiel immunoassay. ??Results obtained from other methods or manufacturers cannot be used interchangeably with this method. Blood VENOUS BLOOD SPECIMEN / Unknown 04/23/2024 1:09 PM EDT 04/23/2024 4:50 PM EDT Alexia Mtz APRN CHEMISTRY ORDERABLES [facility] [place] [address] documented in this encounter Visit Diagnoses Diagnosis Elevated prostate specific antigen (PSA) documented in this encounter Care Teams Solar Thermal Technician Relationship Specialty Start Date End Date Alexia Mtz APRN [address] [place] [address] PCP - General Family Medicine 07/30/24 documented as of this encounter
--- OUTSIDE RECORDS SUMMARY | 2024-09-24 11:14 | XMS_ITS | Encounter Summary ---
[place] [address] Care Team Providers Care Cinder Snapper Name Role Phone Yoel Artis FREDRICK Primary Care Provider [phone] Reason for Visit * Auth/Cert (Routine) Specialty Diagnoses / Procedures Referred By Theodore t Referred To Contact Diagnoses Anal spasm Fecal smearing Constipation, unspecified Rectal pain, fecal smearing Procedures PRO COLONOSCOPY, DIAGNOSTIC PRO COLONOSCOPY, BIOPSY PRO COLONOSCOPY, REMV LESN, SNARE COLONOSCOPY, DIAGNOSTIC (WRVU 3.26) Brandan Mcgovern MD [facility] [place] [address] [facility] Referral ID Status Reason Start Date Expiration Date Visits Re quested Visits Authorized [id number] 1 1 Encounter Details Date Type Department Care Team (Late st Contact Info) Description 08/30/2023 11:00 AM EST - 08/30/2023 12:00 PM EST [place] [address] Brandan Mcgovern MD [facility] [place] [address] COLONOSCOPY, POLYPECTOMY, REMOVAL LESION BY SNARE (WRVU [...] occurs, please contact your Doctor. Please call [phone] before 8pm Mon-Fri with problems, questions or concerns. If you call after 8pm or on weekends, call the Hospital at [phone] and ask to speak to the Beef Breaker communications specialist and the local telephone operator will contact that person for you. When should you call for help? Call [phone] anytime you think you may need emergency [...] any problems. Where can you learn more? [facility] View your After Visit Summary and more online at [email or web address] If you would like to provide feedback about your hospital experience, please call the Office of Patient and Family Relations at . If you have received this After Visit Summary in error, please immediately return it in person to the department, or notify the Count Includes [facility] Privacy Office by calling toll free at between the hours of 8AM and 5PM to arrange for our retrieval of the documents at no cost to you. Content Version: 12.2 ?? [phone] Tagged. Care instructions adapted under license by [facility]. If you have questions about a medical condition or this instruction, always ask your healthcare professional. Tagged disclaims any warranty or liability for your [...] evening. 04/17/2023 08/04/2024 nitroGLYcerin (NITROLINGUAL) 400 mcg/spray [place], Non-AerosolIndications:P roctalgia fugax,Fecal smearing,Constipation, unspecified constipation type [...] AM EST Office Visit Cardiology at [address] [address] Mushtaq Murphy APRN documented as of this encounter Procedures Procedure Name Priority Date/Time Associated Diagnosis Comments SPECIMEN TO PATHOLOGY Routine 08/30/2023 11:23 AM EST SURGICAL PATHOLOGY REPORT Routine 08/30/2023 11:21 AM EST COLONOSCOPY Routine 08/30/2023 10:57 AM EST Colonoscopy, Remv Avril, Snare ([id number]) 08/30/2023 10:44 AM EST Proctalgia fugax Fecal smearing Constipation, unspecified constipation type documented in this encounter Results * Specimen to Pathology (08/30/2023 11:23 AM EST) AP Specimen 08/30/2023 11:2 3 AM EST 08/30/2023 11:23 AM EST Narrative [facility] - 08/30/2023 11:23 AM EST Specimen requisition ordered. ??Separate Pathology report to follow Brandan Mcgovern MD PATHOLOGY/CYTOLOGY O JOSH Performing Organization Address [facility]/ZIP Co de Phone Number [facility] [place] [address] * Surgical Pathology Report (08/30/2023 11:21 AM EST) Final Diagnosis [id number] ? Location: 4T; EA12; A The signing pathologist has (i) examined the relevant preparation(s) for the specimen(s) and (ii) rendered or confirmed the diagnosis(es). . ?Surgical Pathology DIAGNOSIS A - Sigmoid colon polyp, resection (Multiple): - ??Tubular adenoma. CR-PX Electronically signed by: ?Blake ORTEGA PhD, Yulia Verified: ??09/08/2023 14:48 ??Pathologist Performed at: ??-[facility] Dept. of Pathology, [place] [address] Director Of Market Research: Fercho Chan MD, AP, ??CLIA Certificate: [id number] SPECIMEN(S) SUBMITTED A - Sigmoid colon polyp, resection (Multiple) CLINICAL INFORMATION 73-year-old male, history of rectal pain SPECIMEN PROCESSING A - Labeled/Fixativ e: Sigmoid colon polyp, formalin. Quantity/Size: Single, 0.8 cm. Tissue Description: Soft, candelaria tissue. Sections/Proces sing: Submitted in toto ??in 1 cassette labeled A1. ??sdy 09/08/2023 2:48 PM EST [facility] GI Biopsy 08/30/2023 11:2 1 AM EST 08/30/2023 11:21 AM EST Brandan Mcgovern MD PATHOLOGY/CYTOLOGY O JOSH [facility] [place] [address] [place] [address] * COLONOSCOPY (08/30/2023 10:57 AM EST) [facility] Signature COLONOSCOPY [facility] Endoscopy Procedure Date: 08/30/2023 10:57 AM ? Patient Name: Korey Montoya ? Date of : 1950 ? Age: 73 ? Order #: [id number] ? Instrument Name: [id number] ? Procedure: ? Colonoscopy Indications: ? Rectal [...] preparation was evaluated ? using the BBPS ([place] Bowel ? Preparation Scale) with scores of: [...] RN) documented in this encounter Care Teams Cinder Snapper Relationship Specialty Start Date End Date Yoel Artis APRN [address] [place] [address] PCP - General Internal Medicine 11/18/22 07/29/24 documented as of this encounter
--- OUTSIDE RECORDS SUMMARY | 2024-09-24 11:14 | XMS_ITS | Encounter Summary ---
Author Organization [facility] [place] [address] Care Team Providers Care Supervisor Feed House Name Role Phone Yoel Artis Ute ALCALA Primary Care Provider Encounter Details Date Type Department Care Team (Late st Contact Info) Description 01/16/2024 5:46 PM EDT - 01/16/2024 11:59 PM EDT Hospital Encounter [facility] [address] [place] [address] Chaparro Montana MD [address] [place] [address] Discharge Disposition: Home Social History Tobacco Use [...] evening. 04/17/2023 08/04/2024 nitroGLYcerin (NITROLINGUAL) 400 mcg/spray [place], Non-AerosolIndications:P roctalgia fugax,Fecal smearing,Constipation, unspecified constipation type 1 spray to anus for proctalgia fugax as needed, not to exceed once daily 12 g 06/01/2023 08/04/2024 documented as of this encounter Plan of Treatment Upcoming Encounters Date Type Department Care Team (Late st Contact Info) Description 10/01/2024 10:00 AM EST Office Visit Cardiology at [address] [address] Mushtaq Murphy APRN documented as of this encounter Procedures Procedure Name Priority Date/Time Associated Diagnosis Comments URINE CULTURE Routine 01/16/2024 4:00 PM EDT documented in this encounter Results * Urine culture (01/16/2024 4:00 PM EDT) Urine Culture No growth (Less than 1,000 cfu/ml). [facility] Urine 01/16/2024 4:00 PM EDT 01/16/2024 10:36 PM EDT Narrative Resulting Agency Comment Spec In Lab Chaparro Montana MD MICROBIOLOGY - [facility] ORDERABLES [facility] [place] [address] documented in this encounter Visit Diagnoses Not on filedocumented in this encounter Care Teams Supervisor Feed House Relationship Specialty Start Date End Date Yoel Artis APRN [address] [place] [address] PCP - General Internal Medicine 11/18/22 07/29/24 documented as of this encounter
--- OUTSIDE RECORDS SUMMARY | 2024-09-24 11:14 | XMS_ITS | Encounter Summary ---
[place] [address] Care Team Providers Care Throw Out Clerk Name Role Phone Yoel Artis APRN Primary Care Provider [phone] Reason for Referral * Consultation (Routine) - Closed Specialty Diagnoses / Procedures Referred By Theodore muro Referred To Contact Urology Diagnoses Raised prostate specific antigen PERSISTENTLY MILDLY ELEVATED PSA, URINARY FREQ Yoel Artis APRN [address] [place] [address] [facility] [place] [address] Referral ID Status Reason Start Date Expiration Date V isits Requested Visits Authorized [id number] Closed Consult, Test & Treat PCP Updated and/or Approved 07/30/2023 07/29/2024 6 6 Encounter Details Date Type Department Care Team (Late st Contact Info) Description 07/30/2023 Transcribe Orders eDH Incoming Referrals [phone] Yoel Artis APRN [address] [place] [address] Raised prostate specific antigen Social History Tobacco [...] AM EST Office Visit Cardiology at [address] [address] Mushtaq Murphy APRN Scheduled Referrals Name Type Priority Associated Diagnoses Orde r Schedule Referral to Urology Outpatient Referral Routine Raised prostate specific antigen Ordered: 07/30/2023 documented as of this encounter Visit Diagnoses Diagnosis Raised prostate specific antigen Elevated prostate specific antigen (PSA) documented in this encounter Care Teams Throw Out Clerk Relationship Specialty Start Date End Date Yoel Artis APRN [address] [place] [address] PCP - General Internal Medicine 11/18/22 07/29/24 documented as of this encounter
--- OUTSIDE RECORDS SUMMARY | 2024-09-24 11:14 | XMS_ITS | Encounter Summary ---
[place] [address] Care Team Providers Care Cutter V Groove Name Role Phone Yoel Artis FREDRICK Primary Care Provider [phone] Encounter Details Date Type Department Care Team (Late st Contact Info) Description 08/26/2023 Telephone [place] [address] Madelyn Vasquez Social History Tobacco Use Types [...] - 08/26/2023 9:23 AM EST Korey Montoya [id number] Diagnosis/Indication: Rectal pain, fecal smearing Please review [...] ever had a/an Colonoscopy before? Yes: Date [id number] ago [facility] If yes, did [...] your procedure. Who will likely be your entry level truck driver for the procedure? Please Verify [...] AM EST Office Visit Cardiology at [address] [address] Mushtaq Murphy APRN documented as of this encounter Visit Diagnoses Not on filedocumented in this encounter Care Teams Cutter V Groove Relationship Specialty Start Date End Date Yoel Artis APRN [address] [place] [address] PCP - General Internal Medicine 11/18/22 07/29/24 documented as of this encounter
--- OUTSIDE RECORDS SUMMARY | 2024-09-24 11:14 | XMS_ITS | Encounter Summary ---
Author Organization [facility] [place] [address] Care Team Providers Care Gun Stocker Name Role Phone Yoel Artis Ute ALCALA Primary Care Provider [phone] Encounter Details Date Type Department Care Team (Late st Contact Info) Description 07/29/2024 Interpretation Only [facility] [address] [place] [address] Chaparro Montana MD [address] [place] [address] Social History Tobacco Use Types Packs/Day Years Used Date Smoking Tobacco: Former Cigarettes Smokeless Tobacco: Never Alcohol Use Standard Drinks/Week Comments Not Currently 0 (1 standard drink = 0.6 oz pur e alcohol) [facility] Utilities Answer Date Recorded In the past 12 months has Ansible, gas, oil, or water Patience threatened to shut off services in your [...] AM EST Office Visit Cardiology at [address] [address] Mushtaq Murphy APRN documented as of this encounter Procedures Procedure Name Priority Date/Time Associated Diagnosis Comments XR CHEST ONE VIEW STAT 07/29/2024 10: 50 AM EST documented in this encounter Results * XR Chest One View (07/29/2024 10:50 AM EST) PT CLASS E RAD ADMITDTTM [id number] RAD PT RAD MD INFO [id number]^Albertiss henry^Chaparro RAD EXAM DESC XCXR1^XR Chest 1 [...] questions please contact the health long term acute care registered nurse that requested your imaging first. [...] have questions please contactthe health long term acute care registered nurse that requested your imaging first. Chaparro Montana MD IMG DX ORDERABLES documented in this encounter Visit Diagnoses Not on filedocumented in this encounter Care Teams Gun Stocker Relationship Specialty Start Date End Date Yoel Artis APRN [address] [place] [address] PCP - General Internal Medicine 11/18/22 07/29/24 documented as of this encounter
--- OUTSIDE RECORDS SUMMARY | 2024-09-24 11:14 | XMS_ITS | Encounter Summary ---
Author Organization [facility] [place] [address] Care Team Providers Care Poising Inspector Name Role Phone Yoel Artis APRN Primary Care Provider Reason for Referral * Consultation (Routine) - Closed Specialty Diagnoses / Procedures Referred By Theodore muro Referred To Contact Gastroenterology Diagnoses Proctalgia fugax Fecal smearing Constipation, unspecified constipation type group Yoel Dangelo APRN [facility] [place] [address] Paulette Glynn, PhD [facility] [place] [address] Referral ID Status Reason Start Date Expiration Date V isits Requested Visits Authorized [id number] Closed Consult, Test & Treat 06/01/2023 05/31/2024 1 1 Reason for Visit * Consultation (Routine) - Closed Specialty Diagnoses / Procedures Referred By Theodore muro Referred To Contact Gastroenterology Diagnoses Anal spasm motility- anal spasms Yoel Artis APRN [address] [place] [address] [facility] [place] [address] [place] [address] Referral ID Status Reason Start Date Expiration Date V isits Requested Visits Authorized [id number] Closed Consult, Test & Treat PCP Updated and/or Approved 11/18/2022 11/18/2023 6 6 Encounter Details Date Type Department Care Team (Latest Contact Info) Description 06/01/2023 8:00 AM EDT TH Visit (TeleHealth) [place] [address] Yoel Dangelo, CALL CENTER SUPPORT CONSULTANT [facility] [place] [address] Proctalgia fugax; Fecal smearing; Constipation, unspecified constipation [...] hear from us within 1 week: Clinic [phone] Motility Lab scheduling [phone] Endoscopy scheduling- [phone] Diagnostics: -Colonoscopy for rectal pain -Anorectal manometry [...] connection and our services, please visit the [facility] Behavioral health website at: [email or web address] Our hope is that through these classes, [...] please contact your insurance company or the [facility] billing office ([email or web address]). Your insurance company may request a CPT code if you ask about coverage. [place] [address]. If you're interested in attending any of these classes or workshops, please reach out to our scheduling team via [facility] or phone ([phone]). You should start a fiber supplement if [...] Handout for Patients and Primary Care Providers [facility] Gastrointestinal Motility, Esophageal, and Swallowing Disorders [facility] What are functional bowel disorders? These are the most common type of gastrointestinal disorders in the [facility] The most common functional bowel disorder in the [facility] is irritable bowel syndrome (IBS) Irritable bowel [...] what is the impact? 15-20% of general [place] population has IBS or FD or both 2nd most common cause for lost work days (after common cold) in [place] Estimated $30 billion dollar cost to [place] per year These disorders can have [...] with immediate onset of symptoms after infection); retirement symptoms are expected in most patients however [...] to you primary care provider and/or local chaser apprentice and share this document. Treatment of functional [...] - this approach benefits most patients OTC (kjmm-tpx-figmclv) medications can be used for ongoing bothersome [...] All-Bran psyllium buds, Metamucil, Konsyl, bulk psyllium ([employer] and [employer] stores) Specifically we recommend starting Metamucil [...] but convincing medical evidence is still lacking Slib-byp-sbpujcx supplements including probiotics are not typically evaluated [...] to decrease antibiotic-associated diarrhea and antibiotic-related infections Lxkz-yin-Fujwmjs Medications for Functional Gut Disorders Based on [...] a stool softener that is safe for retirement usage (no risk of dependency) andthe dosage [...] (GERD) Often a combination of anti-nausea medications (awpj-rfq-ttfyykj or prescription) works better thanhigh doses of [...] for misuse/misinterpretation of this information Patient Resources [place] [employer] https://www.gastro.org/practice-guidance/wj-xxczvrm-rvvtyo/ topic/lmdijflpr-drqkn-umlasmml-ibs Badgut.org https://badgut.org/information-centre/p-p-axvvhmcth-topics/ibs/ AboutIBS.org https://www.aboutibs.org/ Uptodate.com https://www.uptodate.com/contents/cghhhxlvb-hlywn-gryvkolo-xhanya-slb-zubaql documented in this encounter Progress Notes * [...] Denies weight loss Last colo 2017 at [facility] with no polyps. Current Regimen: Metamucil [...] recommendations above. The patient was located in [place] at the time of their visit. TIME SPENT WITH PATIENT Time spent reviewing records prior to this encounter on day of appointment: 2 minutes Time spent during encounter with patient including counselin minutes Time spent documenting encounter after office visit: 7 minutes Yoel Dangelo APRN [facility] [place] [address] documented in this encounter Plan of Treatment Upcoming Encounters Date Type Department Care Team (Late st Contact Info) Description 10/01/2024 10:00 AM EST Office Visit Cardiology at [address] [place] [address] Mushtaq Murphy APRN Scheduled Orders Name Type [...] type documented in this encounter Care Teams Poising Inspector Relationship Specialty Start Date End Date Yoel Artis APRN [address] [place] [address] PCP - General Internal Medicine 11/18/22 07/29/24 documented as of this encounter
--- OUTSIDE RECORDS SUMMARY | 2024-09-24 11:14 | XMS_ITS | Encounter Summary ---
[place] [address] Care Team Providers Care Conference Specialist Name Role Phone Anibal Mtz MD Primary Care Provider [phone] Encounter Details Date Type Department Care Team (Late st Contact Info) Description 01/18/2019 3:00 PM EDT Interpretation Only Cardiology at [address] [address] Alberto Powell Jr., MD Dizziness Social History [...] AM EST Office Visit Cardiology at [address] [address] Mushtaq Murphy APRN documented as of this [...] giddiness documented in this encounter Care Teams Conference Specialist Relationship Specialty Start Date End Date Anibal Mtz MD [address] [place] [address] PCP - General Family Medicine 01/17/19 11/17/22 documented as of this encounter
--- OUTSIDE RECORDS SUMMARY | 2024-09-24 11:14 | XMS_ITS | Encounter Summary ---
[place] [address] Care Team Providers Care Grocery Clerk Selling Name Role Phone Yoel Artis APRN Primary Care Provider Encounter Details Date Type Department Care Team (Late st Contact Info) Description 12/23/2022 8:20 AM EDT - 12/23/2022 11:59 PM EDT Hospital Encounter [facility] [address] [place] [address] Yoel Artis APRN [address] [place] [address] Discharge Disposition: Home Social History Tobacco Use [...] AM EST Office Visit Cardiology at [address] [address] Mushtaq Murphy APRN documented as of this encounter Procedures Procedure Name Priority Date/Time Associated Diagnosis Comments PSA SCREEN Routine 12/23/2022 8:43 AM EDT documented in this encounter Results * (ABNORMAL) PSA Screen (12/23/2022 8:43 AM EDT) PSA Screen 4.37(H) 0.00 - 4.00 ng/mL [facility] Comment: PLEASE NOTE: The above reference [...] City/State/[facility] Co de Phone Number [facility] [place] [address] documented in this encounter Visit Diagnoses Not on filedocumented in this encounter Care Teams Grocery Clerk Selling Relationship Specialty Start Date End Date Yoel Artis APRN [address] [place] [address] PCP - General Internal Medicine 11/18/22 07/29/24 documented as of this encounter
--- OUTSIDE RECORDS SUMMARY | 2024-09-24 11:14 | XMS_ITS | Encounter Summary ---
[place] [address] Care Team Providers Care Shank Sorter Name Role Phone Anibal Mtz MD Primary Care Provider [phone] Encounter Details Date Type Department Care Team (Late st Contact Info) Description 11/08/2022 [facility] Only [address] [address] Eve Frost MD [address] [place] [address] Social History Tobacco Use Types Packs/Day Years [...] AM EST Office Visit Cardiology at [address] [address] Mushtaq Murphy APRN documented as of this encounter Procedures Procedure Name Priority Date/Time Associated Diagnosis Comments XR CHEST PA AND LATERAL STAT 11/08/2022 10:34 AM EST documented in this encounter Results * XR Chest PA & Lateral (Generic) (11/08/2022 10:34 AM EST) PT CLASS E RAD ADMITDTTM RAD PT RAD INFO [id number]^C HANDER^SUNEE R RAD EXAM DESC XCXR2^XR CHEST [...] who have questions please contact the health urgent care physician assistant that requested your imaging first. ? Electronically signed by: Alejandro Tenorio MD, [facility] ([phone]), at 11/08/2022 10:37 AM Narrative 11/08/2022 10:37 [...] patients who have questions please contactthe health urgent care physician assistant that requested your imaging first. Eve Frost MD IMG DX ORDERABLES documented in this encounter Visit Diagnoses Not on filedocumented in this encounter Care Teams Shank Sorter Relationship Specialty Start Date End Date Anibal Mtz MD [address] [place] [address] PCP - General Family Medicine 01/17/19 11/17/22 documented as of this encounter
--- OUTSIDE RECORDS SUMMARY | 2024-09-24 11:14 | XMS_ITS | Encounter Summary ---
[place] [address] Care Team Providers Care Director Of Agronomy Name Role Phone Yoel Artis APRN Primary Care Provider [phone] Encounter Details Date Type Department Care Team (Late st Contact Info) Description 03/01/2023 9:30 AM EDT - 03/01/2023 11:59 PM EDT Hospital Encounter [facility] [address] [place] [address] Yoel Artis APRN [address] [place] [address] Discharge Disposition: Home Social History Tobacco Use [...] AM EST Office Visit Cardiology at [address] [address] Mushtaq Murphy APRN documented as of this encounter Procedures Procedure Name Priority Date/Time Associated Diagnosis Comments PSA (ULTRASENSITIVE) Routine 03/01/2023 9:38 AM EDT documented in this encounter Results * (ABNORMAL) PSA (Ultrasensitive) (03/01/2023 9:38 AM EDT) Prostate Specific Antigen (Ultrasensitive) 5.09(H) 0.00 - 4.00 ng/mL [facility] Comment: PLEASE NOTE: The [...] In Lab Yoel Artis APRN CHEMISTRY ORDERABLES [facility] [place] [address] documented in this encounter Visit Diagnoses Not on filedocumented in this encounter Care Teams Director Of Agronomy Relationship Specialty Start Date End Date Yoel Artis APRN [address] [place] [address] PCP - General Internal Medicine 11/18/22 07/29/24 documented as of this encounter
--- OUTSIDE RECORDS SUMMARY | 2024-09-24 11:14 | XMS_ITS | Encounter Summary ---
Author Organization [facility] Address [facility] [place] [address] Care Team Providers Care Lens Blocker Name Role Phone Yoel Artis APRN Primary Care Provider [phone] Encounter Details Date Type Department Care Team (Latest Contact Info) Description 11/30/2023 8:00 AM EDT TH Visit (TeleHealth) [place] [address] Yoel Dangelo APRN [facility] [place] [address] Proctalgia fugax; Constipation, unspecified constipation type Social [...] Bath: Sitz bath's are available in most [facility]. They work by improving blood flow [...] Handout for Patients and Primary Care Providers [facility] Gastrointestinal Motility, Esophageal, and Swallowing Disorders [...] with immediate onset of symptoms after infection); snf symptoms are expected in most patients however [...] to you primary care provider and/or local dressmaker garment fitter and share this document. Treatment of functional [...] - this approach benefits most patients OTC (qbxw-lfw-bbojvwf) medications can be used for ongoing bothersome symptoms as listed below Your provider (PCP or local Gastroenterology provider or [facility] Gastroenterology provider) may decide to [...] All-Bran psyllium buds, Metamucil, Konsyl, bulk psyllium ([employer] stores and Receptor stores) Specifically we recommend starting Metamucil or [...] but convincing medical evidence is still lacking Hnbv-moz-anbpzve supplements including probiotics are not typically evaluated [...] to decrease antibiotic-associated diarrhea and antibiotic-related infections Xlse-fyl-Zegywgz Medications for Functional Gut Disorders Based on [...] a stool softener that is safe for snf usage (no risk of dependency) andthe dosage [...] (GERD) Often a combination of anti-nausea medications (dowu-ttd-udiaqau or prescription) works better thanhigh doses of [...] this information Patient Resources [place] [employer] https://www.gastro.org/practice-guidance/xd-jcsfhpk-wpxoqm/ topic/zcpwsiuyo-zgvqj-gemhhcnq-ibs Badgut.org https://badgut.org/information-centre/k-w-wphzvfrmp-topics/ibs/ AboutIBS.org https://www.aboutibs.org/ Uptodate.com https://www.uptodate.com/contents/jsoqjbcrg-itbcm-goleenxb-lmsvlw-vnv-qcrfny documented in this encounter Progress Notes * [...] Take by mouth. nitroGLYcerin (NITROLINGUAL) 400 mcg/spray [place], Non-Aerosol 1 spray to anus for proctalgia fugax as needed, not to exceed once daily 12 g 0 No facility-administered medications prior to visit. Allergies: has No Known Allergies. Past Medical History: has a past medical history of ADHD, HLD (hyperlipidemia), HTN (hypertension),and Tremor. Past Surgical History: has a past surgical history that includes Hand surgery and Colonoscopy, Antonieta Pfeiffer ([id number]) (N/A, 08/30/2023). Family History: family history is [...] [place] at the time of their visit. Yoel Dangelo APRN [facility] [place] [address] documented in this encounter Miscellaneous Notes * Addendum Note - Yoel Dangelo APRN - 11/30/2023 8:00 AM EDTAddended by: YOEL DANGELO on: 11/30/2023 08:46 AM Modules accepted: Level of Service documented in this encounter Plan of Treatment Upcoming Encounters Date Type Department Care Team (Late st Contact Info) Description 10/01/2024 10:00 AM EST Office Visit Cardiology at [address] [address] Mushtaq Murphy APRN documented as of this encounter Visit Diagnoses Diagnosis Proctalgia fugax Anal spasm Constipation, unspecified constipation type documented in this encounter Care Teams Lens Blocker Relationship Specialty Start Date End Date Yoel Artis APRN [address] [place] [address] PCP - General Internal Medicine 11/18/22 07/29/24 documented as of this encounter
--- OUTSIDE RECORDS SUMMARY | 2024-09-24 11:14 | XMS_ITS | Encounter Summary ---
[place] [address] Care Team Providers Care Curb Setter Helper Name Role Phone Yoel Artis FREDRICK Primary Care Provider [phone] Encounter Details Date Type Department Care Team (Late st Contact Info) Description 01/16/2024 Interpretation Only [facility] [address] [place] [address] Chaparro Montana MD [address] [place] [address] Social History Tobacco Use Types Packs/Day Years [...] AM EST Office Visit Cardiology at [address] [address] Mushtaq Murphy APRN documented as of this encounter Procedures Procedure Name Priority Date/Time Associated Diagnosis Comments XR CHEST ONE VIEW STAT 01/16/2024 4:0 4 PM EDT documented in this encounter Results * XR Chest One View (01/16/2024 4:04 PM EDT) PT CLASS E RAD ADMITDTTM [id number] RAD PT RAD INFO [id number]^Haniss henry^Chaparro RAD EXAM DESC XCXR1^XR Chest 1 View^RIS RAD WORKSTATION ID [id number] [facility] Anatomical Region Laterality [...] have questions please contact the health healthcare or medical that requested your imaging first. ? Narrative [...] who have questions please contactthe health healthcare or medical that requested your imaging first. Electronically signed by: Alexey Winslow MD, [facility]([phone]), at 01/16/2024 4:08 PM Chaparro Montana MD IMG DX ORDERABLES documented in this encounter Visit Diagnoses Not on filedocumented in this encounter Care Teams Curb Setter Helper Relationship Specialty Start Date End Date Yoel Artis APRN [address] [place] [address] PCP - General Internal Medicine 11/18/22 07/29/24 documented as of this encounter
--- OUTSIDE RECORDS SUMMARY | 2024-09-24 11:14 | XMS_ITS | Encounter Summary ---
Author Organization [facility] Address [facility] [place] [address] Care Team Providers Care Immunology Specialist Name Role Phone Yoel Artis FREDRICK Primary Care Provider [phone] Encounter Details Date Type Department Care Team (Late st Contact Info) Description 07/29/2024 [place] [phone] Ivan Hernandez MD [facility] [address] Social History Tobacco Use Types Packs/Day Years Used Date Smoking Tobacco: Former Cigarettes Smokeless Tobacco: Never Alcohol Use Standard Drinks/Week Comments Not Currently 0 (1 standard drink = 0.6 oz pur e alcohol) [facility] Utilities Answer Date Recorded In the past 12 months has e [employer], gas, oil, or water [employer] threatened to shut off services in your [...] 9:50 AM Hospital to which patient presented: [facility] which patient presented[facility] Walk In Medical History (prior to [...] Unfractionated Heparin Plan STEMI Alert called: Yes Structural Engineer Activated by: Assistant Professor Of Drama Initial Disposition: Admit Structural Engineer documented in this encounter Plan of Treatment Upcoming Encounters Date Type Department Care Team (Late st Contact Info) Description 10/01/2024 10:00 AM EST Office Visit Cardiology at [address] [address] Mushtaq Murphy APRN documented as of this encounter Visit Diagnoses Not on filedocumented in this encounter Care Teams Immunology Specialist Relationship Specialty Start Date End Date Yoel Artis APRN [address] [place] [address] PCP - General Internal Medicine 11/18/22 07/29/24 documented as of this encounter
--- OUTSIDE RECORDS SUMMARY | 2024-09-24 11:14 | XMS_ITS | Encounter Summary ---
Author Organization [facility] Address [facility] [place] [address] Care Team Providers Care Supervisor Chassis Assembly Name Role Phone Unknown Primary Care Provider Unavailabl e Encounter Details Date Type Department Care Team (Late st Contact Info) Description 01/13/2019 9:05 PM EDT Ancillary Procedure Radiology Library at [facility] [place] [phone] Sunny Aviles MD [facility] [place] [address] Social History Tobacco Use Types Packs/Day Years [...] AM EST Office Visit Cardiology at [address] [place] [address] Mushtaq Murphy APRN documented as of this [...] IMG FILM LIBRARY ORDERABLES Performing Organization Address City/State/[facility] Co de Phone Number [place], [place] documented in this encounter Visit Diagnoses Not on filedocumented in this encounter Care Teams Supervisor Chassis Assembly Relationship Specialty Start Date End Date Unknown None PCP - General 08/04/10 01/16/19 documented as of this encounter
--- OUTSIDE RECORDS SUMMARY | 2024-09-24 11:14 | XMS_ITS | Encounter Summary ---
[place] [address] Care Team Providers Care Cellular Equipment Installer Name Role Phone Yoel Artis APRN Primary Care Provider [phone] Reason for Referral * Consultation (Routine) - Closed Specialty Diagnoses / Procedures Referred By Theodore muro Referred To Contact Gastroenterology Diagnoses Anal spasm anal spasm Yoel Artis APRN [address] [place] [address] [facility] [place] [address] Referral ID Status Reason Start Date Expiration Date V isits Requested Visits Authorized [id number] Closed Consult, Test & Treat PCP Updated and/or Approved 05/26/2023 05/25/2024 6 6 Encounter Details Date Type Department Care Team (Late st Contact Info) Description 05/26/2023 Transcribe Orders eDH Incoming Referrals [phone] Yoel Artis APRN [address] [place] [address] Anal spasm Social History Tobacco [...] AM EST Office Visit Cardiology at [address] [address] Mushtaq Murphy APRN Scheduled Referrals Name Type Priority Associated Diagnoses Order Schedule Referral to Gastroenterology Outpatient Referral Routine Anal spasm Ordered: 05/26/2023 documented as of this encounter Visit Diagnoses Diagnosis Anal spasm documented in this encounter Care Teams Cellular Equipment Installer Relationship Specialty Start Date End Date Yoel Artis APRN [address] [place] [address] PCP - General Internal Medicine 11/18/22 07/29/24 documented as of this encounter
--- OUTSIDE RECORDS SUMMARY | 2024-09-24 11:14 | XMS_ITS | Encounter Summary ---
Author Organization [facility] Address [facility] [place] [address] Care Team Providers Care Lsat Instructor Name Role Phone Yoel Artis Ute ALCALA Primary Care Provider [phone] Encounter Details Date Type Department Care Team (Late st Contact Info) Description 07/29/2024 Orders Only [place] [address] Susannah Watts PA [facility] [place] [address] Social History Tobacco Use Types Packs/Day Years Used Date Smoking Tobacco: Former Cigarettes Smokeless Tobacco: Never Alcohol Use Standard Drinks/Week Comments Not Currently 0 (1 standard drink = 0.6 oz pur e alcohol) [facility] Utilities Answer Date Recorded In the past 12 months has [employer], [employer], oil, or water [employer] threatened to shut off services in your [...] 10:00 AM EST Office Visit Cardiology at [facility] [address] [place] [phone] Mushtaq Murphy APRN documented as of this encounter Procedures Procedure Name Priority Date/Time Associated Diagnosis Comments ECHOCARDIOGRAM TRANSTHORACIC Routine 07/30/2024 1:41 AM EST documented in this encounter Results * Echocardiogram Transthoracic (07/30/2024 1:41 AM EST) Anatomical Region Laterality Modality Cardiac Other 07/30/2024 1:41 AM EST Narrative 07/30/2024 8:23 AM EST [address] [place] [address] ? Echocardiogram Report Name: KOREY BERMUDEZ ? Study Date: 07/30/2024 01:41 AM : 1950 ? Height: 168 cm Age: 74 yrs ? Weight: 5.9 kg Gender: Male ?BSA: 0.63 m2 Performed By: Beatris Ching MD Reason For Study: STEMI, [place] History: ASCVD, HTN, HLD Interpreting Fellow: Beatris Ching. Interpretation Summary This is a limited study performed by a fellow order control clerk blood bank to evaluate for cardiogenic shock with impella [...] study available for comparison. Procedure Limited - 68630. Suboptimal quality. There is sinus bradycardia. Left [...] Procedure Note Kathleen Banda MD - 07/30/[address] [place] [address] Echocardiogram Report Name: BERMUDEZKOREY Study Date: 07/30/2024 01:41AM : 1950 Height: 168 cm Age: 74 yrs Weight: 5.9 kg Gender: Male BSA: 0.63 m2 Performed By: Beatris Ching MD Reason For Study: STEMI, [place] History: ASCVD, HTN, HLD Interpreting Fellow: Beatris Ching. Interpretation Summary This is a limited study performed by a fellow order control clerk blood bank to evaluate forcardiogenic shock with impella in. [...] study available for comparison. Procedure Limited - 94499. Suboptimal quality. There is sinus bradycardia. Left [...] on filedocumented in this encounter Care Teams Lsat Instructor Relationship Specialty Start Date End Date Yoel Artis APRN [address] [place], [place] [id number] PCP - General Internal Medicine 11/18/22 07/29/24 documented as of this encounter
--- OUTSIDE RECORDS SUMMARY | 2024-09-24 11:14 | XMS_ITS | Encounter Summary ---
[place] [address] Care Team Providers Care Supervisor Stage Carpentry Name Role Phone Yoel Artis Ute ALCALA Primary Care Provider [phone] Encounter Details Date Type Department Care Team (Late st Contact Info) Description 07/28/2024 Interpretation Only [address] [address] Quinten Coffey MD [address] [place] [address] Social History Tobacco Use Types Packs/Day Years [...] AM EST Office Visit Cardiology at [address] [address] Mushtaq Murphy APRN documented as of this encounter Procedures Procedure Name Priority Date/Time Associated Diagnosis Comments XR CHEST ONE VIEW STAT 07/28/2024 10: 22 AM EST documented in this encounter Results * XR Chest One View (07/28/2024 10:22 AM EST) PT CLASS E RAD ADMITDTTM [id number] RAD PT RAD INFO [id number]^Alexx ^Quinten RAD EXAM DESC XCXR1^XR Chest 1 View^RIS RAD WORKSTATION ID [id number] [facility] Anatomical Region [...] who have questions please contact the health wound care nurse that requested your imaging first. ? Electronically signed by: Darvin Noyola, [facility] ([phone]), at 07/28/2024 11:18 AM Narrative 07/28/2024 11:18 [...] patients who have questions please contactthe health wound care nurse that requested your imaging first. Electronically signed by: Darvin Noyola [facility]([phone]), at 07/28/2024 11:18 AM Quinten Coffey MD IMG DX ORDERABLES documented in this encounter Visit Diagnoses Not on filedocumented in this encounter Care Teams Supervisor Stage Carpentry Relationship Specialty Start Date End Date Yoel Artis APRN [address] [place] [address] PCP - General Internal Medicine 11/18/22 07/29/24 documented as of this encounter
--- OUTSIDE RECORDS SUMMARY | 2024-09-24 11:14 | XMS_ITS | Encounter Summary ---
[place] [address] Care Team Providers Care Home Economist Name Role Phone Yoel Artis Ute ALCALA Primary Care Provider [phone] Reason for Visit * Auth/Cert (Routine) Specialty Diagnoses / Procedures Referred By Theodore t Referred To Contact Diagnoses STEMI (ST elevation myocardial infarction) STEMI Procedures ER IPI Vahe Marvin MD [facility] [place] [address] [facility] Referral ID Status Reason Start Date Expiration Date Visits Re quested Visits Authorized [id number] 1 1 Encounter Details Date Type Department Care Team (Late st Contact Info) Description 07/29/2024 12:00 PM EST - 07/29/2024 12:54 PM EST Surgery Consumer [place] [address] Vahe Marvin MD [facility] [place] [address] CARDIAC CATHETERIZATION Social History Tobacco Use Types Packs/Day Years Used Date Smoking Tobacco: Former Cigarettes Smokeless Tobacco: Never Alcohol Use Standard Drinks/Week Comments Not Currently 0 (1 standard drink = 0.6 oz pur e alcohol) [facility] Utilities Answer Date Recorded In the past [...] in a assisted (including now)? No 07/30/2024 DH IPV Inpatient [...] Korey Montoya Patient Age: 74 y.o. Language: [place] Islander Race: White Ethnicity: Not nor Admit date: [...] please contact your inpatient physician through the [facility] Deployment Engineer . Issues afterhours and on weekends [...] EKG. Patient transferred via air ambulance to [facility] on 07/29 for LHC and [...] EKG. Was transferred via air ambulance to [facility] for further management and LHC [...] the next year. Access was via right MOTOR AND CHASSIS INSPECTOR and this sitewas clean, dry and intact [...] for Chest pain. Replaces: nitroGLYcerin 400 mcg/spray [place], Non-Aerosol 0.4 mg Quantity: 90 tablet Refills: [...] Refills: 0 STOPPED Medications nitroGLYcerin 400 mcg/spray [place], Non-Aerosol Commonly known as: NITROLINGUAL Replaced by: [...] of one year. After this time, your brine plant operator will determine if you need to [...] away. Stay on the phone. The emergency tub wash operator will tell you what to do. [...] appointments: During 8am-5pm Tuesday through Tuesday call [phone] to speak with a nurse in the cardiology clinic All other times call [phone] and ask to speak to the license inspector alumni relations coordinator. Follow up Appointments: PCP Alexia Mtz, SKIVER COUNTER [phone]. Please call to establish a follow up appointment within 1-2 weeks of discharge. Cardiology. Referral to heart failure has been sent. General Instructions None Future Appointments and Orders Future Orders Complete By Expires Referral to Cardiac Rehab [VVR996 Custom] As directed Process Instructions: If no progress note charted, please enter Clinical details in comments. Scheduling Instructions: Questions: My question or request is: STEMI, PCI- cardiac rehab at [facility] Referral to Cardiology [REF12 [...] of one year. After this time, your brine plant operator will determine if you need to [...] away. Stay on the phone. The emergency tub wash operator will tell you what to do. [...] appointments: During 8am-5pm Tuesday through Tuesday call [phone] to speak with a nurse in the cardiology clinic All other times call [phone] and ask to speak to the license inspector alumni relations coordinator. Follow up Appointments: PCP Alexia Mtz, SKIVER COUNTER [phone]. Please call to establish a follow up [...] EKG. Patient transferred via air ambulance to [facility] on 07/29 for LHC and LOW to LAD for 100% occlusion Social History: Pt lives with his in a 1 level home with 2 NAOMI. Pt was indep [employer]OR [employer]. 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 He [...] Total time: 35 (tef) minutes Time IN/OUT: [id number] ZAIDA DUBOSE PT Pager: [phone] Physical Therapy Inpatient Rehabilitation Department * Yrn Velazquez MD - 08/03/2024 10:38 AM EST CV HOSPITALIST 2 - [facility] DAILY PROGRESS NOTE Page [phone] to reach a provider 04/04 Admit Date: [...] or before 29-JUL-2024) Lateral injury pattern ACUTE SD / STEMI Abnormal ECG When compared with [...] Compared to the overnight study by the alumni relations coordinator fellow the impella position is stable. 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 [facility] 07/29/24 Conclusions: * One vessel coronary artery disease (LAD) * Mild pulmonary hypertension * Elevated pulmonary capillary wedge pressure * Successful stent insertion of the proximal LAD lesion * See Dual Antiplatelet (DAPT) Recommendations above * Successful impella placement for cardiogenic shock. Telemetry: I have personally reviewed and interpreted the telemetry from the last 24 hours. [facility] Assessment: ASSESSMENT: Korey Montoya is a 74 y.o. male w/ PMH of hypertension, HLD, and BPH who presents for chief concern of chest pain after being found to have ST elevations on EKG. Patient transferred via air ambulance to [facility] on 07/29 for LHC and [...] be determined OT: PCP Alexia Mtz, FREDRICK [phone] * Zaida Dubose, PT - 08/02/2024 2:08 PM EST Physical Therapy Evaluation Patient profile: Korey Montoya is a 74 y.o. male w/ PMH of hypertension, HLD, and BPH who presents for chief concern of chest pain after being found to have ST elevations on EKG. Patient transferred via air ambulance to [facility] on 07/29 for LHC and LOW to LAD for 100% occlusion Social History: Pt lives with his in a 1 level home with 2 NAOMI. Pt was indep [employer]. 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 He [...] mobility recommendations discussed with nursing Assessment: Korey Monotya was seen today for physical therapy evaluation. [...] Total time: 37 (eval) minutes Time IN/OUT: 9415-5253 ZAIDA DUBOSE PT Pager: [phone] Physical Therapy Inpatient Rehabilitation Department * Gagan [...] EKG. Patient transferred via air ambulance to [facility] on 07/29 for LHC and LOW to LAD for 100% occlusion. TTE showed apical akinesis and inferior hypokinesis with EF 20%. RHC showed elevated filling pressures. Impella placed and P-level 6 at time of transfer to [facility]. CI initially 1.97, improved to 2.2 [...] PCP: Alexia Mtz APRN PCP phone number: [phone] Date of Admission: 07/29/2024 ( Hospital Day 4 days ) Attending:Bridgette Stauffer MD ID: Korey Montoya is a 74 y.o. male w/ PMH of hypertension, HLD, and BPH on Hospital Day4 for chief concern of chest pain after being found to have ST elevations on EKG. Patient transferred via air ambulance to [facility] on 07/29 for LHC and [...] 07/29/24 1621 PHART 7.48* 7.44 7.38 7.37 [id number] 29* 29* 34* 36 PO2ART 71* 109* 141* 71* LPC9BPK 20.6 19.4* 19.5* 20.4 VBG (Venous Blood Gas) Recent Labs 07/29/24 1401 PHVEN 7.30* PO2VEN 39 ZSG1WXU 20.1* Mixed Venous Sat No results for input(s): E1MTDU5 in the last 168 hours. Objective: Vitals [...] 07/29/24 1621 PHART 7.48* 7.44 7.38 7.37 [id number] 29* 29* 34* 36 PO2ART 71* 109* 141* 71* KEF0OCW 20.6 19.4* 19.5* 20.4 VBG (Venous Blood Gas) Recent Labs 07/29/24 1401 PHVEN 7.30* PO2VEN 39 LWJ4CWM 20.1* Mixed Venous Sat No results for input(s): B8OYBC5 in the last 168 hours. Microbiology: Microbiology Results (Last 30 days) Procedure Component Value Units Date/Time Blood culture [[id number]] Collected: 07/29/24 160 Lab Status: Preliminary result Specimen: Blood, Venous Updated: 08/01/24 170 Blood Culture No growth at 72 hours Blood culture [[id number]] Collected: 07/29/241607 Lab Status: Preliminary result Specimen: Blood, Venous Updated: 08/01/241700 Blood Culture No growth at 72 hours Imaging: Results for orders placed or performed during the hospital encounter of 07/29/24 XR Chest One View (Exam End: 07/29/2024 2:30 PM) Result Value WORKSTATION ID [id number] Impression 1. No pulmonary edema. 2. No pleural effusion. 3. No pneumothorax. Thank you for letting us participate in the care of this patient. If you are a health care provider and have any questions regarding this report, please contact the number below. For patients who have questions please contact the health adult care manager that requested your imaging first. Electronically signed by: Chris Candelaria MD, [facility] ([phone]), at 07/29/2024 3:21 PM TTE ( 07/30/24) [...] Compared to the overnight study by the alumni relations coordinator fellow the impella position is stable. [...] EKG. Patient transferred via air ambulance to [facility] on 07/29 for LHC and [...] Susannah Ornelas MD Internal Medicine, PGY-1 Cardiology, [facility] 08/02/24 12:45 PM CARDIOLOGY STAFF NOTE [...] floor. Krystal Parker MD, [facility] Staff Employment Office Clerk teacher cclc * Gagan Catherine MD - 08/01/2024 11:12 [...] EKG. Patient transferred via air ambulance to [facility] on 07/29 for LHC and [...] support, which was weaned upon arrival to [facility] to norepinephrine 20and levo 0.04 N [...] PCP: Alexia Mtz APRN PCP phone number: [phone] Date of Admission: 07/29/2024 ( Hospital Day 3 days ) Attending:Krystal Parker MD ID: Korey Montoya is a 74 y.o. male w/ PMH of hypertension, HLD, and BPH on Hospital Day3 for chief concern of chest pain after being found to have ST elevations on EKG. Patient transferred via air ambulance to [facility] on 07/29 for LHC and [...] 07/29/24 1621 PHART 7.48* 7.44 7.38 7.37 FPN4IGN 29* 29* 34* 36 PO2ART 71* 109* 141* 71* DPT3YQC 20.6 19.4* 19.5* 20.4 VBG (Venous Blood Gas) Recent Labs 07/29/24 1401 PHVEN 7.30* PO2VEN 39 HYB8CUZ 20.1* Mixed Venous Sat No results for input(s): O8VQVC2 in the last 168 hours. PA Catheter [...] 07/29/24 1621 PHART 7.48* 7.44 7.38 7.37 WIT6OCE 29* 29* 34* 36 PO2ART 71* 109* 141* 71* GVI6LEX 20.6 19.4* 19.5* 20.4 VBG (Venous Blood Gas) Recent Labs 07/29/24 1401 PHVEN 7.30* PO2VEN 39 YJW5QNJ 20.1* Mixed Venous Sat No results for input(s): Q4LBYF1 in the last 168 hours. Microbiology: Microbiology Results (Last 30 days) Procedure Component Value Units Date/Time Blood culture [[id number]] Collected: 07/29/241607 Lab Status: Preliminary result Specimen: Blood, Venous Updated: 07/31/241700 Blood Culture No growth at 48 hours Blood culture [[id number]] Collected: 07/29/241607 Lab Status: Preliminary result Specimen: Blood, Venous Updated: 07/31/241700 Blood Culture No growth at 48 hours Imaging: Results for orders placed or performed during the hospital encounter of 07/29/24 XR Chest One View (Exam End: 07/29/2024 2:30 PM) Result Value WORKSTATION ID [id number] Impression 1. No pulmonary edema. 2. No pleural effusion. 3. No pneumothorax. Thank you for letting us participate in the care of this patient. If you are a health care provider and have any questions regarding this report, please contact the number below. For patients who have questions please contact the health adult care manager that requested your imaging first. Electronically signed by: Chris Candelaria MD, [facility] ([phone]), at 07/29/2024 3:21 PM TTE ( 07/30/24) [...] Compared to the overnight study by the alumni relations coordinator fellow the impella position is stable. [...] EKG. Patient transferred via air ambulance to [facility] on 07/29 for LHC and [...] answered. Krystal Parker MD, [facility] Staff Employment Office Clerk teacher cclc * Krystal Parker MD - 07/31/2024 1:06 [...] EKG. Patient transferred via air ambulance to [facility] on 07/29 for LHC and LOW to LAD for 100% occlusion. TTE showed apical akinesis and inferior hypokinesis with EF 20%. RHC showed elevated filling pressures. Impella placed and P-level 6 at time of transfer to [facility]. CI initially 1.97, improved to 2.2 After impella. Received about 3 L of fluid during procedural course. Patient initially required norepinephrine 30, epinephrine 10, and vasopressin 0.04 for hemodynamic support, which was weaned upon arrival to [facility] to norepinephrine 20and levo 0.04 N [...] PCP: Alexia Mtz APRN PCP phone number: [phone] Date of Admission: 07/29/2024 ( Hospital Day 2 days ) Attending:Krystal Parker MD ID: Korey Montoya is a 74 y.o. male w/ PMH of hypertension, HLD, and BPH on Hospital Day2 for chief concern of chest pain after being found to have ST elevations on EKG. Patient transferred via air ambulance to [facility] on 07/29 for LHC and [...] 0057 07/29/24 1621 PHART 7.44 7.38 7.37 GQA8UCU 29* 34* 36 PO2ART 109* 141* 71* AXK7OSZ 19.4* 19.5* 20.4 VBG (Venous Blood Gas) Recent Labs 07/29/24 1401 PHVEN 7.30* PO2VEN 39 VIC6PCB 20.1* Mixed Venous Sat No results for input(s): Z1BIUT5 in the last 168 hours. PA Catheter [...] 0057 07/29/24 1621 PHART 7.44 7.38 7.37 FOY4ASI 29* 34* 36 PO2ART 109* 141* 71* UZD3SFO 19.4* 19.5* 20.4 VBG (Venous Blood Gas) Recent Labs 07/29/24 1401 PHVEN 7.30* PO2VEN 39 HVU7GOX 20.1* Mixed Venous Sat No results for input(s): F6VULI1 in the last 168 hours. Microbiology: Microbiology Results (Last 30 days) Procedure Component Value Units Date/Time Blood culture [[id number]] Collected: 07/29/241607 Lab Status: Preliminary result Specimen: Blood, Venous Updated: 07/30/24 170 Blood Culture No Growth at 18-24 hrs. Blood culture [[id number]] Collected: 07/29/241607 Lab Status: Preliminary result Specimen: Blood, Venous Updated: 07/30/241700 Blood Culture No Growth at 18-24 hrs. Imaging: Results for orders placed or performed during the hospital encounter of 07/29/24 XR Chest One View (Exam End: 07/29/2024 2:30 PM) Result Value WORKSTATION ID [id number] Impression 1. No pulmonary edema. 2. No pleural effusion. 3. No pneumothorax. Thank you for letting us participate in the care of this patient. If you are a health care provider and have any questions regarding this report, please contact the number below. For patients who have questions please contact the health adult care manager that requested your imaging first. Electronically signed by: Chris Candelaria MD, [facility] ([phone]), at 07/29/2024 3:21 PM TTE ( 07/30/24) [...] Compared to the overnight study by the alumni relations coordinator fellow the impella position is stable. [...] EKG. Patient transferred via air ambulance to [facility] on 07/29 for LHC and [...] work to optimize volume status while continuing syvfgjo-jzpeqz-dihmrsfldz therapies at this time. Obtain comprehensive TTE. [...] EKG. Patient transferred via air ambulance to [facility] on 07/29 for LHC and LOW to LAD for 100% occlusion. TTE showed apical akinesis and inferior hypokinesis with EF 20%. RHC showed elevated filling pressures. Impella placed and P-level 6 at time of transfer to [facility]. CI initially 1.97, improved to 2.2 After impella. Received about 3 L of fluid during procedural course. Patient initially required norepinephrine 30, epinephrine 10, and vasopressin 0.04 for hemodynamic support, which was weaned upon arrival to [facility] to norepinephrine 20and levo 0.04 N [...] PCP: Yoel Artis APRN PCP phone number: [phone] Date of Admission: 07/29/2024 ( Hospital Day 1 day ) Attending:Aubree Silverio MD ID: Korey Montoya is a 74 y.o. male w/ PMH of hypertension, HLD, and BPH on Hospital Day1 for chief concern of chest pain after being found to have ST elevations on EKG. Patient transferred via air ambulance to [facility] on 07/29 for LHC and [...] 0057 07/29/24 1621 PHART 7.44 7.38 7.37 WTS8XMF 29* 34* 36 PO2ART 109* 141* 71* HUF6IGC 19.4* 19.5* 20.4 VBG (Venous Blood Gas) Recent Labs 07/29/24 1401 PHVEN 7.30* PO2VEN 39 GQE6TPP 20.1* Lactate ( Last 12 hours) 1.3 >> 1.2 Mixed Venous Sat No results for input(s): U0KEXL0 in the last 168 hours. PA Catheter [...] 0057 07/29/24 1621 PHART 7.44 7.38 7.37 IUK1HKC 29* 34* 36 PO2ART 109* 141* 71* PBE0PPN 19.4* 19.5* 20.4 VBG (Venous Blood Gas) Recent Labs 07/29/24 1401 PHVEN 7.30* PO2VEN 39 TUX9ISY 20.1* Mixed Venous Sat No results for input(s): U5WRXZ7 in the last 168 hours. Microbiology: Microbiology Results (Last 30 days) Procedure Component Value Units Date/Time Blood culture [[id number]] Collected: 07/29/24 1608 Lab Status: In process Specimen: Blood, Venous Updated: 07/29/24 1626 Blood culture [[id number]] Collected: 07/29/24 1608 Lab Status: In process Specimen: Blood, Venous Updated: 07/29/24 1615 Imaging: Results for orders placed or performed during the hospital encounter of 07/29/24 XR Chest One View (Exam End: 07/29/2024 2:30 PM) Result Value WORKSTATION ID [id number] Impression 1. No pulmonary edema. 2. No pleural effusion. 3. No pneumothorax. Thank you for letting us participate in the care of this patient. If you are a health care provider and have any questions regarding this report, please contact the number below. For patients who have questions please contact the health adult care manager that requested your imaging first. Medications [...] EKG. Patient transferred via air ambulance to [facility] on 07/29 for LHC and [...] EKG. Patient transferred via air ambulance to [facility] on 07/29 for LHC and [...] EKG. Was transferred via air ambulance to [facility] for further management and C demo nstrated 100% occlusion. No significant RCA, LMCA, or LCX disease. LOW placed in LAD with some residual distal disease meriting placement of overlapping distal stent. TTE showed apical akinesis and inferior hypokinesis with EF 20%. RHC showed elevated filling pressures. Impella placed and P-level 6 at time of transfer to [facility]. CI initially 1.97, improved to 2.2 After impella. Received about 3 L of fluid during procedural course. Patient initially required norepinephrine, epinephrine, and vasopressin for hemodynamic support, which was weaned upon arrival to [facility] to norepinephrine 20 and levo 0.04 [...] (WRVU 4.57) performed by Brandan Mcgovern MD [facility] ENDOSCOPY Significant Family History: Family History [...] mouth. Past Week nitroGLYcerin (NITROLINGUAL) 400 mcg/spray [place], Non-Aerosol 1 spray to anus for proctalgia [...] 3.5 guiding catheter and a 3.[address] 20 Mhz using Manual pullback. Imaging [...] priority for the procedure was Emergent. The [facility] indication for the procedure was STEMI-Immediate PCI [...] A premounted 3.00 x 22 mm Jeison [place] (LOW) was deployed with a maximum inflation [...] A premounted 3.00 x 08 mm Jeison [place] (LOW) was deployed with a maximum inflation [...] a limited study performed by a fellow alumni relations coordinator to evaluate for cardiogenic shock with [...] Compared to the overnight study by the alumni relations coordinator fellow the impella position is stable. [...] EKG. Patient transferred via air ambulance to [facility] on 07/29 for LHC and [...] PCP: Yoel Artis APRN PCP phone number: [phone] Date of Admission: 07/29/2024 ( Hospital Day 0 days ) Attending:Aubree Silverio MD ID: Korey Montoya is a 74 y.o. male w/ PMH of hypertension, HLD, and BPH who presents for chief concern of chest pain after being found to have ST elevations on EKG. Patient transferred via air ambulance to [facility] on 07/29 for LHC and LOW to LAD for 100% occlusion. HPI: Korey Montoya is a 74 y.o. male w/ PMH of hypertension, HLD, and BPH who presents for chief concern of chest pain after being found to have ST elevations on EKG. Patient transferred via air ambulance to [facility] on 07/29 for LHC and [...] EKG. Was transferred via air ambulance to [facility] for further management and LHC [...] (WRVU 4.57) performed by Brandan Mcgovern MD [facility] ENDOSCOPY Family History Family History Problem [...] Blood Gas) No results for input(s): PHART, JYF6ARI, PO2ART, UWJ9NMB, LACTATEVEN, FXJ0QKT, PFRATIOART2 in the last 168 hours. VBG (Venous Blood Gas) Recent Labs 07/29/24 1401 PHVEN 7.30* PO2VEN 39 RHI8KJL 20.1* Mixed Venous Sat No results for input(s): M7OZYO4 in the last 168 hours. PA Catheter [...] Blood Gas) No results for input(s): PHART, GHW0DGE, PO2ART, MHE3IJA, LACTATEVEN, MTQ1KFX, PFRATIOART2 in the last 168 hours. VBG (Venous Blood Gas) Recent Labs 07/29/24 1401 PHVEN 7.30* PO2VEN 39 HIA1CGU 20.1* Mixed Venous Sat No results for input(s): A6BUWW9 in the last 168 hours. Microbiology: Microbiology [...] EKG. Patient transferred via air ambulance to [facility] on 07/29 for LHC. Found to have 100% occlusion of LAD for which he underwent LOW to LAD.Otherwise no other significant vessel disease. Fahad is currently hemodynamically tenuous but improving upon admission to [facility], requiring hemodynamic support with norepinephrine and vasopressin at time of admission along with mechanical support with Impella device. Reassuringly, he demonstrates decreasing pressor requirements since admission to [facility], with epinephrine completely weaned. He does [...] Bernardo Amos MD Internal Medicine, PGY-3 Cardiology, [facility] 07/29/24 3:14 PM Cardiology Attending Note [...] FACC Section of Cardiovascular Medicine [facility] Patient Support Assistantlining stuffer [facility] [employer] [facility] This patient meets or has met [...] to the planned procedure. Hand Hygiene: The beehive kiln supervisor did perform hand hygiene prior to arterial [...] ease. Good wave form. Ivan Hernandez MD Entry Level Software Engineer Associated attestation - Rolando Yeh MD - [...] Implemented as Appropriate) * Consult Note - Taimko Andino RN - 08/03/2024 11:59 AM EST Korey Montoya was seen today by Cardiac Rehabilitation for: STEMI, PCI, HFrEF Activity evaluation - Worked w/PT. Salvador well. Patient fully ambulatory. Educational packet regarding CAD, cardiac risk factors, and managing angina given to the patient. Heart diagram reviewed. Fahad was quite active prior to his SD. 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 Given parameters for home exercise. He follows a heart healthy diet and is not overweight. His lipids are wnl. Participation in an outpatient cardiac rehabilitation program at [facility] was discussed. Patient agrees [...] MEDICARE Payor: [employer] MANAGED MEDICARE / [facility] / Product [...] Date of Discharge: 08/04/2024 Gaby Wong RN, Pager-[phone] * Initial Assessments - Char Meza OT - 08/03/2024 10:00 AM EST Occupational Therapy Evaluation Patient profile: Korey Montoya is a 74 y.o. male admitted on 07/29/2024 w/ PMH of hypertension, HLD, and BPH who presents for chief concern of chest pain after being found to have ST elevations onEKG. Patient transferred via air ambulance to [facility] on 07/29 for LHC and LOW to LAD for 100% occlusion. Past Medical History: Diagnosis Date ADHD HLD (hyperlipidemia) HTN (hypertension) Tremor Past Surgical History: Procedure Laterality Date HAND SURGERY PRO COLONOSCOPY, REMV LESN, SNARE N/A 08/30/2023 COLONOSCOPY, POLYPECTOMY, REMOVAL LESION BY SNARE (WRVU 4.57) performed by Brandan Mcgovern MD [facility] ENDOSCOPY Social History: Patient lives with his . Home Setup: 2 NAOMI to a 1 level home. DME: none Baseline ADL/Mobility: Independent with ADLs and IADLs. Enjoys walking. able assist as needed. Precautions/Special Considerations: Full code. Risk for falls. Subjective: I have access to an [employer] gym. (Educated to wait for MD to [...] evaluation only Total Minutes, Occupational Therapy: 14 ([id number] (evaluation)) 2017 OT Evaluation Code Rationale: Diagnosis [...] and measurable assessment of functional outcome. Pager: [phone] Char Meza OT 08/03/2024 Occupational Therapy Rehabilitation [...] (Interventions Implemented as Appropriate) Flowsheets (Taken 08/01/2024 4448) Outcome Summary: A+O, no pain. NSR. MAP [...] Procedure Note: Patient Name: Korey Montoya : [id number] MR#: [id number] Case Date: 07/31/2024 Deployment Engineer: Surgeons and Role: * Maldonado Luis MD - Primary * Quinten Charles PA - Physician Poultry Dressing Worker Preoperative diagnosis: shock, impella Postoperative diagnosis: * same * Procedure(s) performed: Impella removal form right [employer]OR AND CHASSIS INSPECTOR Access: Right MOTOR AND CHASSIS INSPECTOR A time-out was conducted prior to the [...] 180 days) Any patient receiving care in [place] must abide by [place] law. The hierarchy [...] (i) The agent with financial power of criminal attorney or a conservator appointed in accordance [...] it) Home Address confirmed as: Mailing Address: [address] [address] Physical Address: [address] [place] [address] Social & Family Supports: All names listed [...] points: Addiction likely Health/Prescription Coverage: Primary Insurance: HE[employer] SYSTEM MANAGED MEDICARE Payor: [employer] MANAGED MEDICARE / Plan: AARP RPPO MANAGED MEDICARE COMPLETE / Product Type: *No Product type* / Secondary Insurance: N/A ; Prescription Coverage: Yes Preferred Pharmacy: [address] - [address] [address] [place] Status: Patient is a : No Primary Care Provider confirmed: Alexia Mtz, SKIVER COUNTER [phone] Patient/Caregiver Goals of Treatment: return home Potential [...] 07/29/2024 6:25 PM EST 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 CXR and EKG completed. Impella [...] Procedure Note: Patient Name: Korey Montoya : [id number] MR#: [id number] Case Date: 07/29/2024 Deployment Engineer: Surgeons and Role: * Vahe Marvin MD - Primary * Susannah Watts PA - Physician Poultry Dressing Worker Preoperative diagnosis: STEMI Postoperative diagnosis: * STEMI, LAD Artery * * Cardiogenic Shock * Procedure(s) performed: [facility] Coronary angiogram Stent insertion coronary IVUS coronary Venous line insert [facility] [place] Colette Catheter Vascular closure device Ventricular assist [...] x 22 mm to 14 deonna JEISON [place] with LIZ 3 flow. Residual distal disease at distal stent, overlapping distal stent was inserted with 3.0 x 8 mm JEISON [place]. Systolic's in the 80's sustained. Patient re [...] AM EST Office Visit Cardiology at [address] [phone] Mushtaq Murphy, SKIVER COUNTER Scheduled Orders Name Type Priority Associated Diagnoses [...] CBC (with Diff) (08/04/2024 6:08 AM EST) [facility] White Blood Cell 7.27 4.00 - 9.50 [...] - 0.04 x10(3)/mc L 08/04/2024 6:39 AM [facility] Blood VENOUS BLOOD SPECIMEN / Unknown Venipuncture / Unknown 08/04/2024 6:08 AM EST 08/04/2024 6:19 AM EST Bridgette Stauffer MD HEMATOLOGY ORDERABLE S [facility] [place] [address] * Magnesium (08/04/2024 6:08 AM EST) Magnesium 0.85 0.69 - 1.07 mMol/L 08/04/2024 7:07 AM [facility] Blood VENOUS BLOOD SPECIMEN / Unknown Venipuncture / Unknown 08/04/2024 6:08 AM EST 08/04/2024 6:19 AM EST Bridgette Stauffer MD CHEMISTRY ORDERABLES [facility] [place] [address] * Basic Metabolic Panel (08/04/2024 6:08 AM [...] MD CHEMISTRY ORDERABLES [facility] [place] [address] * (ABNORMAL) CBC (with Diff) (08/03/2024 5:16 [...] Monocyte % 9.0 % 08/03/2024 5:29 AM [facility] Monocyte Absolute 0.71 0.30 - 0.90 x10(3)/mc L 08/03/2024 5:29 AM [facility] Eos % 1.7 % 08/03/2024 5:29 AM [facility] Eos Absolute 0.13 0.00 - 0.40 x10(3)/mc L 08/03/2024 5:29 AM [facility] Basophil % 0.4 % 08/03/2024 5:29 AM [facility] Baso Absolute <0.04 0.00 - 0.10 x10(3)/mc L 08/03/2024 5:29 AM EST [facility] Immature Gran % 0.3 % 5:29 AM [facility] Immature Gran Absolute <0.04 0.00 - 0.04 x10(3)/mc L 08/03/2024 5:29 AM [facility] Blood VENOUS BLOOD SPECIMEN / Unknown Venipuncture / Unknown 08/03/2024 5:16 AM EST 08/03/2024 5:23 AM EST Bridgette Stauffer MD HEMATOLOGY ORDERABLE S Performing Organization Address City/[facility]/ZIP Co de Phone Number [facility] [place] [place] [address] * Magnesium (08/03/2024 5:16 AM EST) Magnesium 0.89 0.69 - 1.07 mMol/L 08/03/2024 5:56 AM [facility] Blood VENOUS BLOOD SPECIMEN / Unknown Venipuncture / Unknown 08/03/2024 5:16 AM EST 08/03/2024 5:23 AM EST Bridgette Stauffer MD CHEMISTRY ORDERABLES Performing Organization Address City/[facility]/ZIP Co de Phone Number [facility] [place] [address] * (ABNORMAL) Basic Metabolic Panel (08/03/2024 5:16 [...] - 5.0 mMol/L 08/03/2024 5:56 AM EST [facility] Chloride 106 98 - [...] MD CHEMISTRY ORDERABLES [facility] [place] [address] * POC, GLUCOSE (08/02/2024 7:47 AM EST) Glucometer, POC 89 65 - 199 mg/dL 08/02/2024 7:47 AM EST [facility] Comment:Supplemental ranges: <140 mg/dL before meals <180 mg/dL all other times of the day. Blood CAPILLARY BLOOD / Unknown 08/02/2024 7:47 AM EST 08/02/2024 7:47 AM EST Krystal Parker MD POINT OF CARE TEST O RDERABLES [facility] [place] [address] * (ABNORMAL) CBC (with Diff) (08/02/2024 4:20 [...] - 0.40 x10(3)/mc L 08/02/2024 4:50 AM [facility] Basophil % 0.4 % 08/02/2024 4:50 AM [facility] Baso Absolute <0.04 0.00 - 0.10 x10(3)/mc L 08/02/2024 4:50 AM [facility] Immature Gran % 0.4 % 4:50 AM [facility] Immature Gran Absolute <0.04 0.00 - 0.04 x10(3)/mc L 08/02/2024 4:50 AM [facility] Blood VENOUS BLOOD SPECIMEN / Unknown Venipuncture / Unknown 08/02/2024 4:20 AM EST 08/02/2024 4:37 AM EST Bridgette Stauffer MD HEMATOLOGY ORDERABLE S [facility] [place] [address] * Magnesium (08/02/2024 4:20 AM EST) Magnesium 0.79 0.69 - 1.07 mMol/L 08/02/2024 5:06 AM [facility] Blood VENOUS BLOOD SPECIMEN / Unknown Venipuncture / Unknown 08/02/2024 4:20 AM EST 08/02/2024 4:37 AM EST Bridgette Stauffer MD CHEMISTRY ORDERABLES Performing Organization Address City/[facility]/ZIP Co de Phone Number [facility] [place] [address] * (ABNORMAL) Basic Metabolic Panel (08/02/2024 4:20 [...] - 15 mMol/L 08/02/2024 5:06 AM EST [facility] Calcium 8.1(L) 8.5 - 10.5 mg/dL 08/02/2024 5:06 AM EST [facility] Est Glomerular Filtration Rate - Male 91 mL/min/1. 73 m?? 08/02/2024 5:06 AM EST [facility] Comment: [...] MD CHEMISTRY ORDERABLES [facility] [place] [address] * Potassium (08/01/2024 8:39 PM EST) Potassium 4.0 3.5 - 5.0 mMol/L 08/01/2024 9:21 PM EST [facility] Blood VENOUS BLOOD SPECIMEN / Unknown Venipuncture / Unknown 08/01/2024 8:39 PM EST 08/01/2024 8:51 PM EST Aubree Silverio MD CHEMISTRY ORDERABL ES Performing Organization Address City/[facility]/ZIP Co de Phone Number [facility] [place] [address] * POC, GLUCOSE (08/01/2024 8:35 PM EST) Glucometer, POC 112 65 - 199 mg/dL 08/01/2024 8:36 PM EST [facility] Comment:Supplemental ranges: <140 mg/dL before meals <180 mg/dL all other times of the day. Blood CAPILLARY BLOOD / Unknown 08/01/2024 8:35 PM EST 08/01/2024 8:36 PM EST Krystal Parker MD POINT OF CARE TEST O RDERASHAY [facility] [place] [address] * POC, GLUCOSE (08/01/2024 4:55 PM EST) Glucometer, POC 99 65 - 199 mg/dL 08/01/2024 4:56 PM EST [facility] Comment:Supplemental ranges: <140 mg/dL before meals <180 mg/dL all other times of the day. Blood CAPILLARY BLOOD / Unknown 08/01/2024 4:55 PM EST 08/01/2024 4:56 PM EST Krystal Parker MD POINT OF CARE TEST O JOSH Performing Organization Address [facility]/ZIP Co de Phone Number [facility] [place] [address] * POC, GLUCOSE (08/01/2024 12:42 PM EST) Glucometer, POC 130 65 - 199 mg/dL 08/01/2024 12:43 PM EST [facility] Comment:Supplemental ranges: <140 mg/dL before meals <180 mg/dL all other times of the day. Blood CAPILLARY BLOOD / Unknown 08/01/2024 12:42 PM EST 08/01/2024 12:43 PM EST Krystal Parker MD POINT OF CARE TEST O JOSH [facility] [place] [address] * (ABNORMAL) Cooximetry, POC (08/01/2024 10:45 AM [...] TEST O RDERABLES [facility] [place] [address] * Potassium (08/01/2024 8:20 AM EST) Pathologist [facility] Potassium 4.0 3.5 - 5.0 mMol/L 08/01/2024 10:17 AM EST [facility] Blood ARTERIAL BLOOD / Unknown Venipuncture / Unknown 08/01/2024 8:20 AM EST 08/01/2024 8:30 AM EST Aubree Silverio MD CHEMISTRY ORDERABL ES [facility] [place] [address] * POC, GLUCOSE (08/01/2024 7:44 AM EST) [facility] Glucometer, POC 86 65 - 199 mg/dL 08/01/2024 7:44 AM [facility] Comment:Supplemental ranges: <140 mg/dL before meals <180 mg/dL all other times of the day. Blood CAPILLARY BLOOD / Unknown 08/01/2024 7:44 AM EST 08/01/2024 7:44 AM EST Krystal Parker MD POINT OF CARE TEST O RDERABLES [facility] [place] [address] * (ABNORMAL) CBC (with Diff) (08/01/2024 4:18 AM EST) [facility] White Blood Cell 8.51 4.00 - 9.50 x10(3)/mc L 08/01/2024 4:53 AM [facility] Red Blood Cell 4.12(L) 4.58 - 5.54 x10(6)/mc L 08/01/2024 4:53 AM [facility] Hemoglobin 11.2(L) 13.7 - 16.5 g/dL 08/01/2024 4:53 AM [facility] Hematocrit 33.8(L) 40.5 - 48.5 [...] Gran % 0.4 % 4:53 AM EST [facility] Immature Gran Absolute <0.04 0.00 - 0.04 x10(3)/mc L 08/01/2024 4:53 AM [facility] Blood VENOUS BLOOD SPECIMEN / Unknown Venipuncture / Unknown 08/01/2024 4:18 AM EST 08/01/2024 4:29 AM EST Bridgette Stauffer MD HEMATOLOGY ORDERABLE S Performing Organization Address [facility] Co de Phone Number [facility] [place] [address] * Magnesium (08/01/2024 4:18 AM EST) Pathologist [facility] Magnesium 0.74 0.69 - 1.07 mMol/L 08/01/2024 5:00 AM [facility] Blood VENOUS BLOOD SPECIMEN / Unknown Venipuncture / Unknown 08/01/2024 4:18 AM EST 08/01/2024 4:29 AM EST Bridgette Stauffer MD CHEMISTRY ORDERABLES Performing Organization Address City/[facility] Co de Phone Number [facility] [place] [address] * (ABNORMAL) Basic Metabolic Panel (08/01/2024 4:18 [...] MD CHEMISTRY ORDERABLES [facility] [place] [address] * POC, GLUCOSE (07/31/2024 8:41 PM EST) Glucometer, POC 73 65 - 199 mg/dL 07/31/2024 8:41 PM EST [facility] Comment:Supplemental ranges: <140 mg/dL before meals <180 mg/dL all other times of the day. Blood CAPILLARY BLOOD / Unknown 07/31/2024 8:41 PM EST 07/31/2024 8:41 PM EST Krystal Parker MD POINT OF CARE TEST O RDERABLES Performing Organization Address [facility]/State/ZIP Co de Phone Number [facility] [place] [address] * CARDIAC CATHETERIZATION (07/31/2024 5:53 PM EST) Anatomical Region Laterality Modality Other Narrative 08/01/2024 12:37 PM EST ?[facility] ? Cardiac Catheterization/Intervention Report ? Patient Name: Korey Montoya Kyrie. ? Procedure Date: 07/31/2024 ? A #: [id number] ? Primary Physician: Janelle, Maldonado T ? Case #: [id number] ? File Name: [id number] ? Catheterization Order Number: [id number] ? [facility] ? Final Report [place], [place] ? Patient Name: ? Korey Montoya ?ID#: ?[id number] ? : ?1950 ? Procedure Date: ? July 31, 2024 ?Case #: ? [id number] ? Room: ? 1 ? Case [...] ? Comments: ?Impella removed from the right MOTOR AND CHASSIS INSPECTOR with deployment of Perclose and ?Angioseal. ??Good [...] Korey Montoya Procedure Date: 07/31/2024 A #: [id number] Primary Physician: Maldonado Luis Case #: [id number] File Name: [id number] Catheterization Order Number: [id number] [facility] FinalReport [place], [place] Patient Name: Korey Montoya ID#:[id number] :1950 Procedure Date: July 31, 2024 Case [...] was designated as ASA Class IV. The [facility] clinical frailtyscale is 4: Vulnerable. Diagnostic Tests: [...] procedures. Comments: Impella removed from the right MOTOR AND CHASSIS INSPECTOR with deployment of Perclose and Angioseal. Good [...] * POC, GLUCOSE (07/31/2024 11:04 AM EST) [facility] Glucometer, POC 82 65 - 199 mg/dL 07/31/2024 11:04 AM EST [facility] Comment:Supplemental ranges: <140 mg/dL before meals <180 mg/dL all other times of the day. Blood CAPILLARY BLOOD / Unknown 07/31/2024 11:04 AM EST 07/31/2024 11:04 AM EST Krystal Parker MD POINT OF CARE TEST O RDERABLES [facility] [place] [address] * (ABNORMAL) Blood Gas, Arterial POC (07/31/2024 [...] Organization Address City/[facility]/ZIP Co de Phone Number [facility] [place] [address] * POC, GLUCOSE (07/31/2024 7:47 AM EST) [facility] Signature Glucometer, POC 82 65 - 199 mg/dL 07/31/2024 7:53 AM [facility] Comment:Supplemental ranges: <140 mg/dL before meals <180 mg/dL all other times of the day. Blood CAPILLARY BLOOD / Unknown 07/31/2024 7:47 AM EST 07/31/2024 7:53 AM EST Krystal Praker MD POINT OF CARE TEST O RDERABLES Performing Organization Address City/[facility]/ZIP Co de Phone Number [facility] [place] [address] * (ABNORMAL) CBC (with Diff) (07/31/2024 1:08 [...] HEMATOLOGY ORDERABLE S [facility] [place] [address] * Magnesium (07/31/2024 1:08 AM EST) Magnesium 0.89 0.69 - 1.07 mMol/L 07/31/2024 1:46 AM EST [facility] Blood VENOUS BLOOD SPECIMEN / Unknown Venipuncture / Unknown 07/31/2024 1:08 AM EST 07/31/2024 1:18 AM EST Bridgette Stauffer MD CHEMISTRY ORDERABLES [facility] [address] [place] [address] * (ABNORMAL) Basic Metabolic Panel (07/31/2024 1:08 [...] 3.5 - 5.0 mMol/L 07/31/2024 1:46 AM [facility] Chloride 110(H) 98 - 107 [...] MD CHEMISTRY ORDERABLES [facility] [place] [address] * (ABNORMAL) Hepatic Function Panel (07/31/2024 1:08 AM EST) Albumin 3.1(L) 3.2 - 5.2 g/dL 07/31/2024 1:46 AM [facility] Aspartate Aminotransferase 192(H) <=39 unit/L [...] Parker MD CHEMISTRY ORDERABLES Performing Organization Address [facility]/ZIP Co de Phone Number [facility] [place] [address] * POC, GLUCOSE (07/30/2024 8:03 PM EST) Glucometer, POC 86 65 - 199 mg/dL 07/30/2024 8:03 PM EST [facility] Comment:Supplemental ranges: <140 mg/dL before meals <180 mg/dL all other times of the day. Blood CAPILLARY BLOOD / Unknown 07/30/2024 8:03 PM EST 07/30/2024 8:03 PM EST Krystal Parker MD POINT OF CARE TEST O RDERABLES Performing Organization Address [facility]/ZIP Co de Phone Number [facility] [place] [address] * Potassium (07/30/2024 8:03 PM EST) Pathologist [facility] Potassium 3.8 3.5 - 5.0 mMol/L 07/30/2024 9:13 PM EST [facility] Blood VENOUS BLOOD SPECIMEN / Unknown Venipuncture / Unknown 07/30/2024 8:03 PM EST 07/30/2024 8:22 PM EST Aubree Silverio MD CHEMISTRY ORDERABL ES Performing Organization Address City/[facility]/ZIP Co de Phone Number [facility] [place] [address] * POC, GLUCOSE (07/30/2024 6:23 PM EST) Glucometer, POC 93 65 - 199 mg/dL 07/30/2024 6:24 PM EST [facility] Comment:Supplemental ranges: <140 mg/dL before meals <180 mg/dL all other times of the day. Blood CAPILLARY BLOOD / Unknown 07/30/2024 6:23 PM EST 07/30/2024 6:24 PM EST Krystal Parker MD POINT OF CARE TEST O RDERABLES Performing Organization Address [facility] Co de Phone Number [facility] [place] [address] * POC, GLUCOSE (07/30/2024 5:08 PM EST) Glucometer, POC 78 65 - 199 mg/dL 07/30/2024 5:08 PM EST [facility] Comment:Supplemental ranges: <140 mg/dL before meals <180 mg/dL all other times of the day. Blood CAPILLARY BLOOD / Unknown 07/30/2024 5:08 PM EST 07/30/2024 5:08 PM EST Krystal Parker MD POINT OF CARE TEST O JOSH Performing Organization Address [facility] Co de Phone Number [facility] [place] [address] * (ABNORMAL) Phosphorus (07/30/2024 3:08 PM EST) Phosphorus 2.1(L) 2.5 - 4.5 mg/dL 07/30/2024 3:58 PM EST [facility] Blood VENOUS BLOOD SPECIMEN / Unknown Venipuncture / Unknown 07/30/2024 3:08 PM EST 07/30/2024 3:12 PM EST Aubree Silverio MD CHEMISTRY ORDERABL ES Performing Organization Address [facility] Co de Phone Number [facility] [place] [address] * Magnesium (07/30/2024 3:08 PM EST) Magnesium 0.90 0.69 - 1.07 mMol/L 07/30/2024 3:58 PM [facility] Blood VENOUS BLOOD SPECIMEN / Unknown Venipuncture / Unknown 07/30/2024 3:08 PM EST 07/30/2024 3:12 PM EST Aubree Silverio MD CHEMISTRY ORDERABL ES [facility] [place] [address] * (ABNORMAL) Basic Metabolic Panel (07/30/2024 3:08 PM EST) Glucose 105 65 - 199 mg/dL 07/30/2024 4:17 PM [facility] Comment:Glucose Concentratio n >=200 mg/dL plus symptoms is consistent with Diabetes Mellitus. Blood Urea Nitrogen 13 10 - 20 mg/dL 07/30/2024 4:17 PM [facility] Creatinine 1.01 0.80 - 1.50 mg/dL 07/30/2024 4:17 PM [facility] Sodium 141 135 - 145 mMol/L 07/30/2024 4:17 PM [facility] Potassium 3.4(L) 3.5 - 5.0 mMol/L 07/30/2024 4:17 PM [facility] Chloride 109(H) 98 - 107 mMol/L 07/30/2024 4:17 PM [facility] Carbon Dioxide 21(L) 22 - 31 mMol/L 07/30/2024 4:17 PM [facility] Anion Gap 11 5 - 15 mMol/L 07/30/2024 4:17 PM [facility] Calcium 7.9(L) 8.5 - 10.5 mg/dL 07/30/2024 4:17 PM [facility] Est Glomerular Filtration Rate - Male 79 mL/min/1. 73 m?? 07/30/2024 4:17 PM [facility] Comment: [...] ORDERABL ES [facility] [place] [address] * ECHO LMTD W CONTRAST W LMTD SPEC DOPP COLOR DOPP (07/30/2024 11:42 AM EST) Anatomical Region Laterality Modality Cardiac Other 07/30/2024 10:2 2 AM EST Narrative 07/30/2024 12:34 PM [place] [address] [place] [address] ? Echocardiogram Report Name: KOREY MONTOYA ? Study Date: 07/30/2024 10:22 AMBP: 124/66 mmHg : 1950 ? Height: 168 cm ? Account: [id number] Age: 74 yrs ? Weight: 65 kg Gender: Male ?BSA: 1.7 m2 Ordering Physician: Aubree Silverio MD Referring Physician: CHAPARRO FERRERA Performed By: OMERO Millan Reason For Study: ST elevation myocardial infarction involving left anterior descending (LAD) coronary artery Interpreting Fellow: Ivan Hernandez. Exam Location: [facility]. Interpretation Summary Left ventricle is severely dilated. [...] Compared to the overnight study by the alumni relations coordinator fellow the impella position is stable. 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 Procedure Limited - 73239. Image enhancement Definity was used for both [...] Note Kathleen Banda MD - 07/30/2024 [address] [place] [address] Echocardiogram Report Name: KOREY MONTOYA Study Date: 0:22 AMBP: 124/66 mmHg : 1950 Height: 168 cm Account: [id number] Age: 74 yrs Weight: 65 kg Gender: Male BSA: 1.7 m2 Ordering Physician: Aburee Silverio MD Referring Physician: CHAPARRO FERRERA Performed By: OMERO Millan Reason For Study: ST elevation myocardial infarction involving leftanterior descending (LAD) coronary artery Interpreting Fellow: Ivan Hernandez. Exam Location: [facility]. Interpretation Summary Left ventricle is severely dilated. [...] Compared to the overnight study by the alumni relations coordinator fellow the impella positionis stable. The global left ventricular systolic function has improvedpredominantly via recruitment outside the LAD territory which remains akinetic. Procedure Limited - 44510. Image enhancement Definity was used for both [...] CARE TEST ORDERABLES [facility] [place] [address] * (ABNORMAL) Blood Gas, Arterial POC (07/30/2024 [...] - 145 mmol/L 07/30/2024 8:17 AM EST [facility] Potassium, Arterial 3.9 3.5 [...] CARE TEST ORDERABLES [facility] [place] [address] * (ABNORMAL) Troponin - Single (07/30/2024 8:09 [...] in the [facility] Laboratory Test Catalog Troponin - [email or web address] Reference: Fourth [place] Definition of Myocardial Infarction. Journal of the [place] [employer] 2018;72:7414-8581 Blood VENOUS BLOOD SPECIMEN / Unknown Venipuncture / Unknown 07/30/2024 8:09 AM EST 07/30/2024 8:26 AM EST Aubree Silverio MD CHEMISTRY ORDERABL ES Performing Organization Address [facility] Co de Phone Number [facility] [place] [address] * POC, GLUCOSE (07/30/2024 7:40 AM EST) [facility] Glucometer, POC 111 65 - 199 mg/dL 07/30/2024 7:40 AM EST [facility] [facility] Comment:Supplemental ranges: <140 mg/dL before meals <180 mg/dL all other times of the day. Blood CAPILLARY BLOOD / Unknown 07/30/2024 7:40 AM EST 07/30/2024 7:40 AM EST Aubree Silverio MD POINT OF CARE TEST ORDERABLES Performing Organization Address City/[facility]/ZIP Co de Phone Number [facility] [place] [address] * (ABNORMAL) CBC (with Diff) (07/30/2024 2:11 AM EST) White Blood Cell 11.25(H) 4.00 - 9.50 x10(3)/mc L 07/30/2024 2:33 AM EST [facility] Red Blood Cell 4.50(L) [...] 0.90 x10(3)/mc L 07/30/2024 2:33 AM EST [facility] Eos % 0.0 % [...] HEMATOLOGY ORDERABLE S [facility] [place] [address] * Magnesium (07/30/2024 2:11 AM EST) Magnesium 1.01 0.69 - 1.07 mMol/L 07/30/2024 2:51 AM [facility] Blood VENOUS BLOOD SPECIMEN / Unknown Venipuncture / Unknown 07/30/2024 2:11 AM EST 07/30/2024 2:22 AM EST Bridgette Stauffer MD CHEMISTRY ORDERABLES [facility] [place] [address] * (ABNORMAL) Basic Metabolic Panel (07/30/2024 2:11 [...] 5 - 15 mMol/L 07/30/2024 2:51 AM [facility] Calcium 7.7(L) 8.5 - 10.5 mg/dL 07/30/2024 2:51 AM [facility] Est Glomerular Filtration Rate - Male 91 mL/min/1. 73 m?? 07/30/2024 2:51 AM [facility] Comment: [...] Organization Address City/[facility]/ZIP Co de Phone Number [facility] [place] [address] * (ABNORMAL) Cooximetry, POC (07/30/2024 1:00 AM EST) pO2, Coox 28 mmHg 07/30/2024 1:03 AM [facility] Hemoglobin, Coox 12.7(L) 13.7 - 16.5 g/dL 07/30/2024 1:03 AM EST [facility] Oxyhemoglobin, Coox 54.9 % 07/30/2024 1:03 AM EST [facility] Carboxyhemoglo bin, Coox 1.0 % 07/30/2024 1:03 AM EST [facility] Comment: Nonsmokers: 0.5-1.5% COHB ?? Smokers: Variable ??but usually less than 10% ?? Toxic: 20-30% COHB ?? Lethal: Greater than 60% COHB Methemoglobin, Coox 0.0 <=1.5 % 07/30/2024 1:03 AM EST [facility] Blood (Mixed Venous) 07/30/2024 1:00 AM EST 07/30/2024 1:03 AM EST Aubree Silverio MD POINT OF CARE TEST ORDERABLES Performing Organization Address [facility] Co de Phone Number [facility] [place] [address] * (ABNORMAL) Blood Gas, Arterial POC (07/30/2024 [...] Rate 2.0 L/min 07/30/2024 12:58 AM EST [facility] IONIZED CALCIUM, ARTERIAL 1.12(L) 1.15 - 1.33 mmol/L 07/30/2024 12:58 AM EST [facility] Glucose, Arterial 184 65 - 199 mg/dL 07/30/2024 12:58 AM EST [facility] Comment:Glucose Concentratio n >=200 mg/dL plus symptoms is consistent with Diabetes Mellitus. Blood ARTERIAL BLOOD / Unknown 07/30/2024 12:57 AM EST 07/30/2024 12:58 AM EST Aubree Silverio MD POINT OF CARE TEST ORDERABLES [facility] [place] [address] * (ABNORMAL) Troponin - Single (07/29/2024 10:31 PM EST) Pathologist [facility] Troponin-T, High Sensitivity >10,000(H ) <=22 [...] in the [facility] Laboratory Test Catalog Troponin - https://[email or web address]-.testcatalog.org/catalogs/565/files/74476 Reference: [place] Definition of Myocardial Infarction. Journal of the [place] [employer] 2018;72:8568-8706 Blood VENOUS BLOOD SPECIMEN / Unknown Venipuncture / Unknown 07/29/2024 10:31 PM EST 07/29/2024 10:36 PM EST Yrn Velazquez MD CHEMISTRY ORDERABL ES Performing Organization Address City/[facility]/ZIP Co de Phone Number [facility] [place] [address] * Potassium (07/29/2024 8:11 PM EST) Potassium 4.1 3.5 - 5.0 mMol/L 07/29/2024 8:52 PM EST [facility] Blood VENOUS BLOOD SPECIMEN / Unknown Venipuncture / Unknown 07/29/2024 8:11 PM EST 07/29/2024 8:16 PM EST Aubree Silverio MD CHEMISTRY ORDERABL ES Performing Organization Address [facility]/ZIP Co de Phone Number [facility] [place] [address] * (ABNORMAL) Troponin - Single (07/29/2024 8:11 [...] in the [facility] Laboratory Test Catalog Troponin - https://[email or web address]-.testcatalog.org/catalogs/565/files/39357 Reference: Fourth [place] Definition of Myocardial Infarction. Journal of the [place] [employer]iology 2018;72:9444-9698 Blood VENOUS BLOOD SPECIMEN / Unknown Venipuncture / Unknown 07/29/2024 8:11 PM EST 07/29/2024 8:16 PM EST Aubree Silverio MD CHEMISTRY ORDERABL ES Performing Organization Address City/[facility]/ZIP Co de Phone Number [facility] [place] [address] * (ABNORMAL) Phosphorus (07/29/2024 8:11 PM EST) Phosphorus 2.1(L) 2.5 - 4.5 mg/dL 07/29/2024 8:52 PM EST [facility] Blood VENOUS BLOOD SPECIMEN / Unknown Venipuncture / Unknown 07/29/2024 8:11 PM EST 07/29/2024 8:16 PM EST Aubree Silverio MD CHEMISTRY ORDERABL ES Performing Organization Address City/[facility]/ZIP Co de Phone Number [facility] [place] [address] * POC, GLUCOSE (07/29/2024 8:09 PM EST) [...] Organization Address City/[facility]/ZIP Co de Phone Number [facility] [place] [address] * ABORH RECHECK (07/29/2024 6:43 PM EST) Pathologist [facility] ABORH Recheck AB POSITIVE 07/29/2024 10:13 PM EST [facility] Blood VENOUS BLOOD SPECIMEN / Unknown Venipuncture / Unknown 07/29/2024 6:43 PM EST 07/29/2024 7:15 PM EST Aubree Silverio MD BLOOD BANK LAB ORD ERABLES Performing Organization Address City/[facility] Co de Phone Number [facility] [place] [address] * POC, GLUCOSE (07/29/2024 5:57 PM EST) [facility] Glucometer, POC 166 65 - 199 mg/dL 07/29/2024 5:57 PM EST [facility] Comment:Supplemental ranges: <140 mg/dL before meals <180 mg/dL all other times of the day. Blood CAPILLARY BLOOD / Unknown 07/29/2024 5:57 PM EST 07/29/2024 5:57 PM EST Aubree Silverio MD POINT OF CARE TEST ORDERABLES Performing Organization Address City/[facility]/ZIP Co de Phone Number [facility] [place] [address] * Type and screen ([facility]/CGP/MAGALIE) (07/29/2024 5:56 PM EST) ABORH Type AB POSITIVE 07/29/2024 9:44 PM EST [facility] PATIENT HISTORY Not Found 07/29/2024 9:44 PM EST [facility] Expires at [id number] on: 08/01/2024 07/29/2024 9:44 PM EST [facility] ANTIBODY SCREEN AUTOMATED Negative 07/29/2024 9:44 PM EST [facility] T&S only valid at [facility] 07/29/2024 9:44 PM EST [facility] Blood VENOUS BLOOD SPECIMEN / Unknown Venipuncture / Unknown 07/29/2024 5:56 PM EST 07/29/2024 6:07 PM EST Narrative [facility] - 07/29/2024 9:44 PM EST This Type and Screen result is only valid at the [facility] Aubree Silverio MD BLOOD BANK LAB ORD ERABLES [facility] [place] [address] * (ABNORMAL) Troponin - Single (07/29/2024 4:52 PM EST) [facility] Troponin-T, High Sensitivity >10,000(H ) <=22 ng/L [...] in the [facility] Laboratory Test Catalog Troponin - https://[place]-.testcatalog.org/catalogs/565/files/00393 Reference: [place] Definition of Myocardial Infarction. Journal of the [place] [employer]iology 2018;72:5708-4097 Blood VENOUS BLOOD SPECIMEN / Unknown Venipuncture / Unknown 07/29/2024 4:52 PM EST 07/29/2024 4:57 PM EST Aubree Silverio MD CHEMISTRY ORDERABL ES [facility] [place] [address] * EKG 12 Lead (07/29/2024 4:21 PM EST) Ventricular rate 72 BPM MUSE SYSTEM Atrial Rate 72 BPM MUSE SYSTEM P-R Interval 168 ms MUSE SYSTEM QRS Duration 82 ms MUSE SYSTEM Q-T Interval 392 ms MUSE SYSTEM QTC Calculated (Bezet) 429 ms MUSE SYSTEM Calculated P [place] 71 degrees MUSE SYSTEM Calculated R [place] 77 degrees MUSE SYSTEM Calculated T [place] 28 degrees MUSE SYSTEM INTERPRETATION Sinus rhythm with Premature supraventricular complexes and Occasional Premature ventricular complexes Low voltage QRS 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) Lateral injury pattern ACUTE SD / STEMI Abnormal ECG When compared with ECG of 29-JUL-2024 13:43, (unconfirmed) Serial changes of evolving Anteroseptal infarct Present Confirmed by MD Marcus, Roverto (1963) on 07/31/2024 5:30:06 AM MUSE SYSTEM 07/29/2024 4:21 PM EST 07/31/2024 5:30 AM EST Aubree Silverio MD ECG ORDERABLES Performing Organization Address [facility] Co de Phone Number MUSE SYSTEM * (ABNORMAL) Blood Gas, Arterial POC (07/29/2024 4:21 PM EST) pH, Arterial 7.37 7.35 - 7.45 07/29/2024 4:22 PM EST [facility] PCO2, Arterial 36 35 - 45 mmHg 07/29/2024 4:22 PM EST [facility] PO2, Arterial 71(L) 85 - 104 mmHg 07/29/2024 4:22 PM EST [facility] Bicarbonate, Arterial 20.4 20.0 - 26.0 mmol/L 07/29/2024 4:22 PM EST [facility] Base Excess, Arterial -4.8(L) [...] 0.5 - 2.2 mmol/L 07/29/2024 4:22 PM [facility] Fraction of [...] Organization Address City/[facility]/ZIP Co de Phone Number [facility] [place] [address] * POC, GLUCOSE (07/29/2024 4:19 PM EST) Glucometer, POC 185 65 - 199 mg/dL 07/29/2024 4:19 PM EST [facility] Comment:Supplemental ranges: <140 mg/dL before meals <180 mg/dL all other times of the day. Blood CAPILLARY BLOOD / Unknown 07/29/2024 4:19 PM EST 07/29/2024 4:19 PM EST Aubree Silverio MD POINT OF CARE TEST ORDERABLES Performing Organization Address City/[facility]/ZIP Co de Phone Number [facility] [place] [address] * Blood culture (07/29/2024 4:08 PM EST) Blood Culture No growth at 120 hours 08/03/2024 5:01 PM EST [facility] Blood VENOUS BLOOD SPECIMEN / Unknown Venipuncture / Unknown 07/29/2024 4:08 PM EST 07/29/2024 4:15 PM EST Aubree Silverio MD MICROBIOLOGY - BLO OD ORDERABLES [facility] [place] [address] * Blood culture (07/29/2024 4:08 PM EST) Blood Culture No growth at 120 hours 08/03/2024 5:01 PM EST [facility] Blood VENOUS BLOOD SPECIMEN / Unknown Venipuncture / Unknown 07/29/2024 4:08 PM EST 07/29/2024 4:26 PM EST Aubree Silverio MD MICROBIOLOGY - BLO OD ORDERABLES [facility] [place] [address] * XR Chest One View (07/29/2024 2:30 PM EST) WORKSTATION ID [id number] RAD Anatomical Region Laterality Modality Chest N/A [...] who have questions please contact the health adult care manager that requested your imaging first. ? Electronically signed by: Chris Candelaria MD, [facility] ([phone]), at 07/29/2024 3:21 PM Narrative 07/29/2024 3:21 [...] patients who have questions please contactthe health adult care manager that requested your imaging first. Electronically signed by: Chris Candelaria MD, [facility]([phone]), at 07/29/2024 3:21 PM Vahe Marvin MD IMG DX ORDERABLES * (ABNORMAL) APTT (07/29/2024 2:03 PM EST) [facility] Partial Thromboplastin Time >160(HHH) 25 - 37 sec 07/29/2024 2:56 PM EST [facility] Blood VENOUS BLOOD SPECIMEN / Unknown Venipuncture / Unknown 07/29/2024 2:03 PM EST 07/29/2024 2:13 PM EST Vahe Marvin MD HEMATOLOGY ORDERABLE S [facility] [place] [address] * (ABNORMAL) Prothrombin Time (07/29/2024 2:03 PM EST) [facility] Prothrombin Time 14.2(H) 9.4 - 12.5 sec [...] Organization Address City/[facility]/ZIP Co de Phone Number [facility] [place] [address] * CRP, acute inflammation (07/29/2024 2:03 PM EST) C-Reactive Protein <3.0 <=4.9 mg/L 07/29/2024 2:52 PM EST [facility] Blood VENOUS BLOOD SPECIMEN / Unknown Venipuncture / Unknown 07/29/2024 2:03 PM EST 07/29/2024 2:14 PM EST Vahe Marvin MD CHEMISTRY ORDERABLES Performing Organization Address City/[facility]/ZIP Co de Phone Number [facility] [place] [address] * Lipid Panel (Reflex Direct LDL) (07/29/2024 2:03 PM EST) Cholesterol, Total 133 mg/dL 07/29/2024 2:52 PM EST [facility] Comment: Desirable: < 200 mg/dL Borderline High: 200 - 239 mg/dL High: > or = 240 mg/dL Triglyceride 45 mg/dL 07/29/2024 2:52 PM EST [facility] Comment: Normal: <150 mg/dL Borderline High: 150-199 mg/dL High: 200-499 mg/dL Very High: > or =500 mg/dL HDL Cholesterol 58 mg/dL 2:52 PM [facility] Comment:Males: High Risk: <4 0 mg/dL LDL Cholesterol 64 mg/dL 4 2:52 PM [facility] [...] ACC/AHA Guidelines (most recently Rolf et al. [facility] 06/15/22): * For individuals with [...] Organization Address City/[facility]/ZIP Co de Phone Number [facility] [place] [address] * TSH Lydia (07/29/2024 2:03 PM EST) [facility] Thyroid Stimulating Hormone 0.70 0.27 - 4.20 mcIU/mL 07/29/2024 2:52 PM EST [facility] Blood VENOUS BLOOD SPECIMEN / Unknown Venipuncture / Unknown 07/29/2024 2:03 PM EST 07/29/2024 2:14 PM EST Vahe Marvin MD CHEMISTRY ORDERABLES Performing Organization Address City/[facility]/ZIP Co de Phone Number [facility] [place] [address] * Hemoglobin A1c (07/29/2024 2:03 PM EST) [...] blood cell turnover may not be field service representative of glycemic control. Reference Interval: [...] into estimated average glucose values. ??Diabetes Care 2008:31(8):0842-5877. Additional resources are available on the ADA website (diabetes.org). Vahe Marvin MD CHEMISTRY ORDERABLES [facility] [place] [address] * (ABNORMAL) CBC (with Diff) (07/29/2024 2:03 [...] 40.5 - 48.5 % 07/29/2024 2:18 PM [facility] Mean Cell Volume 83.4 82.9 - 93.1 fL 07/29/2024 2:18 PM [facility] [...] 3.20 x10(3)/mc L 07/29/2024 2:18 PM EST [facility] Monocyte % 2.9 % 07/29/2024 2:18 PM EST [facility] Monocyte Absolute 0.56 0.30 - 0.90 x10(3)/mc L 07/29/2024 2:18 PM EST [facility] Eos % 0.0 % 07/29/2024 2:18 PM EST [facility] Eos Absolute <0.04 0.00 - 0.40 x10(3)/mc L 07/29/2024 2:18 PM EST [facility] Basophil % 0.3 % 07/29/2024 2:18 PM EST [facility] Baso Absolute 0.05 0.00 - 0.10 x10(3)/mc L 07/29/2024 2:18 PM EST [facility] Immature Gran % 0.5 % 2:18 PM [facility] Immature Gran Absolute 0.09(H) 0.00 - 0.04 x10(3)/mc L 07/29/2024 2:18 PM EST [facility] Blood VENOUS BLOOD SPECIMEN / Unknown Venipuncture / Unknown 07/29/2024 2:03 PM EST 07/29/2024 2:13 PM EST Vahe Marvin MD HEMATOLOGY ORDERABLE S [facility] [place] [address] * Phosphorus (07/29/2024 2:03 PM EST) Phosphorus 2.5 2.5 - 4.5 mg/dL 07/29/2024 2:52 PM EST [facility] Blood VENOUS BLOOD SPECIMEN / Unknown Venipuncture / Unknown 07/29/2024 2:03 PM EST 07/29/2024 2:14 PM EST Vahe Marvin MD CHEMISTRY ORDERABLES [facility] [place] [address] * Magnesium (07/29/2024 2:03 PM EST) Magnesium 0.70 0.69 - 1.07 mMol/L 07/29/2024 2:52 PM EST [facility] Blood VENOUS BLOOD SPECIMEN / Unknown Venipuncture / Unknown 07/29/2024 2:03 PM EST 07/29/2024 2:14 PM EST Vahe Marvin MD CHEMISTRY ORDERABLES Performing Organization Address [facility]/ZIP Co de Phone Number [facility] [place] [address] * (ABNORMAL) Comprehensive metabolic panel (07/29/2024 2:03 PM EST) Pathologist [facility] Glucose 243(H) 65 - 199 mg/dL 07/29/2024 3:11 PM [facility] Comment:Glucose Concentratio n >=200 mg/dL plus symptoms is consistent with Diabetes Mellitus. Blood Urea Nitrogen 13 10 - 20 mg/dL 07/29/2024 3:11 PM [facility] Creatinine 0.88 [...] - 10.5 mg/dL 07/29/2024 3:11 PM EST [facility] Protein, Total 6.0(L) 6.1 - 8.0 g/dL 07/29/2024 3:11 PM [facility] Albumin 3.6 3.2 - 5.2 g/dL 07/29/2024 3:11 PM [facility] Aspartate Aminotransferase 07/29/2024 3:11 PM EST [facility] Comment:Unable to report due [...] MD CHEMISTRY ORDERABLES [facility] [place] [address] * (ABNORMAL) Troponin - Single (07/29/2024 2:03 PM EST) [facility] Troponin-T, High Sensitivity >10,000(H ) <=22 ng/L [...] in the [facility] Laboratory Test Catalog Troponin - https://[place]-.testcatalog.org/catalogs/565/files/14468 Reference: Fourth [place] Definition of Myocardial Infarction. Journal of the [place] [employer] 2018;72:4862-2763 Blood VENOUS BLOOD SPECIMEN / Unknown Venipuncture / Unknown 07/29/2024 2:03 PM EST 07/29/2024 2:14 PM EST Vahe Marvin MD CHEMISTRY ORDERABLES [facility] [place] [address] * (ABNORMAL) Blood Gas, Venous POC (07/29/2024 2:01 PM EST) [facility] pH, Venous 7.30(L) 7.32 - 7.42 07/29/2024 2:02 PM EST [facility] PCO2, Venous 42 38 - 58 mmHg 07/29/2024 2:02 PM EST [facility] PO2, Venous 39 16 [...] Venous 0.3 <=1.5 % 07/29/2024 2:02 PM [facility] Sodium, Venous 137 135 - 145 mmol/L 07/29/2024 2:02 PM [facility] Potassium, Venous 3.6 3.5 - 5.0 mmol/L 07/29/2024 2:02 PM [facility] Chloride, Venous 103 98 - 107 mmol/L 07/29/2024 2:02 PM [facility] Glucose, Venous 229(H) 65 - 199 mg/dL 07/29/2024 2:02 PM [facility] Comment:Glucose Concentratio n >=200 mg/dL plus symptoms is consistent with Diabetes Mellitus. Lactate, Venous 3.1(H) 0.5 - 2.2 mmol/L 07/29/2024 2:02 PM [facility] Ionized Calcium, Venous 1.11(L) 1.15 - 1.33 mmol/L 07/29/2024 2:02 PM [facility] Blood VENOUS BLOOD SPECIMEN / Unknown 07/29/2024 2:01 PM EST 07/29/2024 2:02 PM EST Vahe Marvin MD POINT OF CARE TEST O RDERABLES Performing Organization Address [facility]/State/ZIP Co de Phone Number [facility] [place] [address] * CARDIAC CATHETERIZATION (07/29/2024 1:20 PM EST) Anatomical Region Laterality Modality Other Narrative 07/29/2024 2:02 PM EST ?[facility] ? Cardiac Catheterization/Intervention Report ? Patient Name: Korey Montoya Kyrie. ? Procedure Date: 07/29/2024 ? A #: [id number] ? Primary Physician: Vahe Marvin S ? Case #: [id number] ? File Name: [id number] ? Catheterization Order Number: [id number] ? [facility] ? Final Report [place], [place] ? Patient Name: ? Korey Montoya ?ID#: ?[id number] ? : ?1950 ? Procedure Date: ? [...] was designated as ASA Class IV. The [facility] clinical frailty scale ?is 4: Vulnerable. ? Diagnostic Tests: ?Electrocardiography: ? EKG was assessed by ECG. EKG was Abnormal. EKG showed ST Deviation ? >= 0.5 mm. ?Medications Prior to Procedure: ? Angiotensin II Receptor Elvis and Statin. ? Indications for Diagnostic Cath: ?The priority of the diagnostic procedure was Emergent. The indication for ?the recyclable products sorter visit is ACS less than or equal [...] 3.5 guiding catheter and a 3.5 [address] [address] ??20 Mhz using ?Manual pullback. ??Imaging [...] ? A premounted 3.00 x 22 mm [place] (LOW) was deployed ? with a maximum [...] ??A premounted 3.00 x 08 mm [place] (LOW) ? was deployed with a maximum [...] dose administered prior to arrival in the recyclable products sorter. ?Recommended anti-platelet/anti-thrombotic regimen: ?Start aspirin 81 mg daily now and continue for 12 months then stop. ?Start clopidogrel 75 mg daily now and continue for indefinitely. ?These recommendations are made at the time of the intervention. Patient ?and provider preferences or a changing clinical situation may require ?modification of this regimen. Consult [facility] Interventional Cardiology for ?questions. ?The [...] able ?to start weaning his inotropes/vasopressors. A [place] Colette catheter was ?placed demonstrating improvement in [...] ventricular assist device insertion, right heart ?catheterization, [place] (flow directed cath) insertion, access site ?angiography, vascular ultrasound, venous line / sheath insert and vascular ?closure device. ? Vahe S Shavonne, M.D. ? Electronically Signed by: Vahe Quiñones Shavonne, M.D. ? Report Finalized: 07/29/2024 ??13:55 ? Report Last Ammended: 09/20/2024 ??15:21 ? Procedure Note Vahe Marvin MD - 09/20/2024 [facility] Cardiac Catheterization/Intervention Report Patient Name: Korey Montoya Procedure Date: 07/29/2024 A #: [id number] Primary Physician: Vahe Marvin Case #: [id number] File Name: [id number] Catheterization Order Number: [id number] [facility] FinalReport [place], [place] Patient Name: Korey Montoya ID#:[id number] :1950 Procedure Date: July 29, 2024 Case [...] was designated as ASA Class IV. The [facility] clinical frailtyscale is 4: Vulnerable. Diagnostic Tests: Electrocardiography: EKG was assessed by ECG. EKG was Abnormal. EKG showed STDeviation >= 0.5 mm. Medications Prior to Procedure: Angiotensin II Receptor Elvis and Statin. Indications for Diagnostic Cath: The priority of the diagnostic procedure was Emergent. Theindication for the recyclable products sorter visit is ACS less than or equal [...] 3.5 guiding catheter and a 3.[address] 20 Mhzusing Manual pullback. Imaging was [...] for the procedure was Emergent.The [facility] indication for the procedure was STEMI-Immediate PCI [...] The lesion was predilated with a 2.00mm [id number] MM balloon with a maximum inflation pressure of 12atmospheres. A premounted 3.00 x 22 mm [place] (LOW) wasdeployed with a maximum inflation pressure [...] A premounted 3.00 x 08 mm Jeison [place](LOW) was deployed with a maximum inflation pressure [...] dose administered prior to arrival in the recyclable products sorter. Recommended anti-platelet/anti-thrombotic regimen: Start aspirin 81 mg daily now and continue for 12 months then stop. Start clopidogrel 75 mg daily now and continue for indefinitely. These recommendations are made at the time of the intervention.Patient and provider preferences or a changing clinical situation mayrequire modification of this regimen. Consult [facility] Interventional Cardiologyfor questions. The 1 [...] wereable to start weaning his inotropes/vasopressors. A [place] Colette catheterwas placed demonstrating improvement in his [...] ventricular assist device insertion, right heart catheterization, [place] (flow directed cath) insertion, access site angiography, [...] TEST O RDERABLES [facility] [place] [address] * (ABNORMAL) BLOOD GAS, POC (07/29/2024 12:12 [...] TEST O RDERABLES Performing Organization Address City/State/[facility] Co de Phone Number [facility] [place] [address] documented in this encounter Visit Diagnoses Not [...] Routine documented in this encounter Care Teams Home Economist Relationship Specialty Start Date End Date Yoel Artis APRN [address] [place] [address] PCP - General Internal Medicine 11/18/22 07/29/24 documented as of this encounter
--- OUTSIDE RECORDS SUMMARY | 2024-09-26 10:16 | XMS_ITS | Encounter Summary ---
[place] [address] Care Team Providers Care Straw Hat Brim Cutter Operator Name Role Phone Alexia Mtz FREDRICK Primary Care Provider [phone] Encounter Details Date Type Department Care Team (Late st Contact Info) Description 09/21/2024 External Results [place] [id number] Social History Tobacco Use Types Packs/Day Years [...] any time in the past 12 m [facility], were you homeless or [...] 10:00 AM EST Office Visit Cardiology at [address] [address] Mushtaq Murphy APRN documented as of this encounter Procedures Procedure Name Priority Date/Time Associated Diagnosis Comments EEG SCAN Routine 07/29/2024 9:44 AM EST documented in this encounter Results * Scan Doc: EEG (07/29/2024 9:44 AM EST) Historical Provider MD MEDIA MGR SCAN EX T ORDR/RSLT documented in this encounter Visit Diagnoses Not on filedocumented in this encounter Care Teams Straw Hat Brim Cutter Operator Relationship Specialty Start Date End Date Alexia Mtz APRN [address] [place] [address] PCP - General Family Medicine 07/30/24 documented as of this encounter
--- OUTSIDE RECORDS SUMMARY | 2024-09-26 10:16 | XMS_ITS | Clinical Summary ---
Author Organization [facility] Address [facility] [place] [address] Care Team Providers Care Reel Tender Name Role Phone Alexia Mtz FREDRICK Primary Care Provider [phone] Allergies No known active allergies Medications Medication [...] Description 09/21/2024 External Results Non-[place] [address] 07/31/2024 4:30 PM EST - 07/31/2024 5:30 PM EST [place] [address] Maldonado Luis MD CARDIAC CATHETERIZATION 07/29/2024 6:32 PM EST - 07/29/2024 11:59 PM EST Hospital Encounter [facility] at [address] [phone] Arvin Becerra MD Discharge Disposition: Home 07/29/2024 12:00 PM EST - 07/29/2024 12:54 PM EST [place] [address] Vahe Marvin MD CARDIAC CATHETERIZATION 07/29/2024 11:45 AM EST - 08/04/2024 5:00 PM EST [place] [address] Vahe Marvin MD Dadekian, Gregory A, MD Welch, Terrence D, MD Vinod, Poornima, MD Kostojchin, Anastas, MD Kussaga, Frank M, MD ST elevation myocardial infarction involving left anterior descending (LAD) coronary artery; HFrEF (heart failure with reduced ejection fraction) Discharge Disposition: Home 07/29/2024 Orders [place] [address] Susannah Watts PA 07/29/2024 Interpretation Only [address] [phone] Deondre Ferrera MD 07/29/2024 [place] [address] Ivan Hernandez MD 07/29/2024 External [place] [address] 07/28/2024 Interpretation Only [address] [id number] Quinten Coffey MD from Last 3 Months Immunizations Name Administration [...] 0.6 oz pur e alcohol) [facility] Utilities Answer Date Recorded In the past 12 months has th e [employer], gas, oil, or water [employer] threatened to shut off services in your [...] 10:00 AM EST Office Visit Cardiology at [address] [address] Mushtaq Murphy, FREDRICK Health Maintenance Due Date Last Done Comments CT Colonography 1950 FIT DNA 1950 FIT 1950 Sigmoidoscopy 1950 Hepatitis C Screening 1970 Pneumoccocal Vaccine: 50+ (1 of 2 - PCV) 1971 Tetanus/Diphtheria/Pertussis [...] VIEW STAT 07/28/2024 10: 22 AM EST COLONOSCOPY Routine 08/30/2023 10:57 AM EST from [...] MD HEMATOLOGY ORDERABLE S [facility] [place] [address] * Magnesium (08/04/2024 6:08 AM EST) Only the most recent of8 resultswithin the time period is included. Magnesium 0.85 0.69 - 1.07 mMol/L 08/04/2024 7:07 AM [facility] Blood VENOUS BLOOD SPECIMEN / Unknown Venipuncture / Unknown 08/04/2024 6:08 AM EST 08/04/2024 6:19 AM EST Bridgette Stauffer MD CHEMISTRY ORDERABLES [facility] [place] [address] * Basic Metabolic Panel (08/04/2024 6:08 AM [...] mL/min/1. 73 m?? 08/04/2024 7:07 AM EST [facility] Comment: This [...] MD CHEMISTRY ORDERABLES Performing Organization Address [facility] Co de Phone Number [facility] [place] [address] * POC, GLUCOSE (08/02/2024 7:47 AM EST) Only the most recent of16 resultswithin the time period is included. [facility] Signature Glucometer, POC 89 65 - 199 mg/dL 08/02/2024 7:47 AM EST [facility] Comment:Supplemental ranges: <140 mg/dL before meals <180 mg/dL all other times of the day. Blood CAPILLARY BLOOD / Unknown 08/02/2024 7:47 AM EST 08/02/2024 7:47 AM EST Arnel Parker MD POINT OF CARE TEST O RDERABLES Performing Organization Address [facility] Co de Phone Number [facility] [place] [address] * Scan Doc: Telemetry Strips (08/02/2024 7:37 [...] MD CHEMISTRY ORDERABL ES [facility] [place] [address] * (ABNORMAL) Cooximetry, POC (08/01/2024 10:45 AM [...] POINT OF CARE TEST O RDERABLES [facility] [address] * CARDIAC CATHETERIZATION (07/31/2024 5:53 PM EST) Only the most recent of2 resultswithin the time period is included. Anatomical Region Laterality Modality Other Narrative 08/01/2024 12:37 PM EST ?[facility] ? Cardiac Catheterization/Intervention Report ? Patient Name: Korey Montoya. ? Procedure Date: 07/31/2024 ? A #: [id number] ? Primary Physician: Maldonado Luis ? Case #: [id number] ? File Name: [id number] ? Catheterization Order Number: [id number] ? [facility] ? Final Report [place], [place] ? Patient Name: ? Korey Montoya ?ID#: ?[id number] ? : ?1950 ? Procedure Date: ? [...] ? Comments: ?Impella removed from the right OVERHEAD CRANE INSPECTOR with deployment of Perclose and ?Angioseal. [...] M.D. ? Electronically Signed by: Maldonado Luis MTobyD. ? Report Finalized: 08/01/2024 ??12:31 ? Procedure Note Maldonado Luis MD - 08/01/2024 [facility] Cardiac Catheterization/Intervention Report Patient Name: Korey Montoya Procedure Date: 07/31/2024 A #: [id number] Primary Physician: Maldonado Luis Case #: [id number] File Name: [id number] Catheterization Order Number: [id number] [facility] FinalReport [place], [place] Patient Name: Korey Montoya ID#:[id number] :1950 Procedure Date: July 31, 2024 Case [...] was designated as ASA Class IV. The [facility] clinical frailtyscale is 4: Vulnerable. [...] procedures. Comments: Impella removed from the right OVERHEAD CRANE INSPECTOR with deployment of Perclose and Angioseal. [...] - 199 mg/dL 07/31/2024 8:30 AM EST [facility] Comment:Glucose Concentratio n >=200 mg/dL plus symptoms is consistent with Diabetes Mellitus. Blood ARTERIAL BLOOD / Unknown 07/31/2024 8:29 AM EST 07/31/2024 8:30 AM EST Arnel Parker MD POINT OF CARE TEST O RDERABLES Performing Organization Address City/[facility]/ZIP Co de Phone Number [facility] [place] [address] * (ABNORMAL) Hepatic Function Panel (07/31/2024 1:08 AM EST) Albumin 3.1(L) 3.2 - 5.2 g/dL 07/31/2024 1:46 AM [facility] Aspartate Aminotransferase 192(H) <=39 unit/L [...] Parker MD CHEMISTRY ORDERABLES Performing Organization Address City/[facility]/ZIP Co de Phone Number [facility] [place] [address] * (ABNORMAL) Phosphorus (07/30/2024 3:08 PM EST) Only the most recent of3 resultswithin the time period is included. Phosphorus 2.1(L) 2.5 - 4.5 mg/dL 07/30/2024 3:58 PM EST [facility] Blood VENOUS BLOOD SPECIMEN / Unknown Venipuncture / Unknown 07/30/2024 3:08 PM EST 07/30/2024 3:12 PM EST Jay Silverio MD CHEMISTRY ORDERABL ES [facility] [place] [address] * ECHO LMTD W CONTRAST W LMTD SPEC DOPP COLOR DOPP (07/30/2024 11:42 AM EST) Anatomical Region Laterality Modality Cardiac Other 07/30/2024 10:2 2 AM EST Narrative 07/30/2024 12:34 PM EST [address] [place] [address] ? Echocardiogram Report Name: LARA KOREY Kyrie ? Study Date: 07/30/2024 10:22 AMBP: 124/66 mmHg : 1950 ? Height: 168 cm ? Account: [id number] Age: 74 yrs ? Weight: 65 kg Gender: Male ?BSA: 1.7 m2 Ordering Physician: Jay Silverio MD Referring Physician: DEONDRE FERRERA Performed By: OMERO Millan Reason For Study: ST elevation myocardial infarction involving left anterior descending (LAD) coronary artery Interpreting Fellow: Ivan Hernandez. Exam Location: [facility]. Interpretation Summary Left ventricle is severely dilated. [...] to the overnight study by the operations business partner fellow the impella position is stable. 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 Procedure Limited - 96212. Image enhancement Definity was used for both [...] Note Kathleen Banda MD - 07/30/2024 [address] [place] [id number] Echocardiogram Report Name: KOREY MONTOYA Study Date: 0:22 AMBP: 124/66 mmHg : 1950 Height: 168 cm Account: [id number] Age: 74 yrs Weight: 65 kg Gender: Male BSA: 1.7 m2 Ordering Physician: Jay Silverio MD Referring Physician: DEONDRE FERRERA Performed By: OMERO Millan Reason For Study: ST elevation myocardial infarction involving leftanterior descending (LAD) coronary artery Interpreting Fellow: Ivan Hernandez. Exam Location: [facility]. Interpretation Summary Left ventricle is severely dilated. [...] to the overnight study by the operations business partner fellow the impella positionis stable. The global left ventricular systolic function has improvedpredominantly via recruitment outside the LAD territory which remains akinetic. Procedure Limited - 59651. Image enhancement Definity was used for both [...] troponin value can be found in the [facility] Test Catalog Troponin - [email or web address].org/catalogs/565/files/68573 Reference: Fourth [place] Definition of Myocardial Infarction. Journal of the [place] College [employer] 2018;72:1402-3604 Blood VENOUS BLOOD SPECIMEN / Unknown Venipuncture / Unknown 07/30/2024 8:09 AM EST 07/30/2024 8:26 AM EST Jay Silverio MD CHEMISTRY ORDERABL ES Performing Organization Address City/State/[facility] Co de Phone Number [facility] [place] [address] * Echocardiogram Transthoracic (07/30/2024 1:41 AM EST) Anatomical Region Laterality Modality Cardiac Other 07/30/2024 1:41 AM EST Narrative 07/30/2024 8:23 AM EST [address] [place] [address] ? Echocardiogram Report Name: KOREY MONTOYA ? Study Date: 07/30/2024 01:41 AM : 1950 ? Height: 168 cm Age: 74 yrs ? Weight: 5.9 kg Gender: Male ?BSA: 0.63 m2 Performed By: Beatris Ching MD Reason For Study: STEMI, VT History: ASCVD, HTN, HLD Interpreting Fellow: Beatris Ching. Interpretation Summary This is a limited study performed by a fellow operations business partner to evaluate for cardiogenic shock with impella [...] study available for comparison. Procedure Limited - 33346. Suboptimal quality. There is sinus bradycardia. Left [...] Note Kathleen Banda MD - 07/30/2024 [address] [place] [address] Echocardiogram Report Name: KOREY MONTOYA Study Date: 07/30/2024 01:41AM : 1950 Height: 168 cm Age: 74 yrs Weight: 5.9 kg Gender: Male BSA: 0.63 m2 Performed By: Beatris Ching MD Reason For Study: STEMI, VT History: ASCVD, HTN, HLD Interpreting Fellow: Beatris Ching. Interpretation Summary This is a limited study performed by a fellow operations business partner to evaluate forcardiogenic shock with impella in. [...] study available for comparison. Procedure Limited - 60826. Suboptimal quality. There is sinus bradycardia. Left [...] RECHECK (07/29/2024 6:43 PM EST) Pathologist [facility] ABORH Recheck AB POSITIVE 07/29/2024 10:13 PM EST [facility] Blood VENOUS BLOOD SPECIMEN / Unknown Venipuncture / Unknown 07/29/2024 6:43 PM EST 07/29/2024 7:15 PM EST Jay Silverio MD BLOOD BANK LAB ORD ERABLES Performing Organization Address City/[facility]/ZIP Co de Phone Number [facility] [place] [address] * Type and screen ([facility]/JONG/MAGALIE) (07/29/2024 5:56 PM EST) Pathologist [facility] ABORH Type AB POSITIVE 07/29/2024 9:44 PM EST [facility] PATIENT HISTORY Not Found 07/29/2024 9:44 PM EST [facility] Expires at [id number] on: 08/01/2024 07/29/2024 9:44 PM EST [facility] ANTIBODY SCREEN AUTOMATED Negative 07/29/2024 9:44 PM EST [facility] T&S only valid at [facility] 07/29/2024 9:44 PM EST [facility] Blood VENOUS BLOOD SPECIMEN / Unknown Venipuncture / Unknown 07/29/2024 5:56 PM EST 07/29/2024 6:07 PM EST Narrative [facility] - 07/29/2024 9:44 PM EST This Type and Screen result is only valid at the [facility] Hospital Jay Silverio MD BLOOD BANK LAB ORD ERABLES Performing Organization Address [facility] Co de Phone Number [facility] [place] [address] * EKG 12 Lead (07/29/2024 4:21 PM EST) Only the most recent of2 resultswithin the time period is included. [facility] Ventricular rate 72 BPM MUSE SYSTEM Atrial Rate 72 BPM MUSE SYSTEM P-R Interval 168 ms MUSE SYSTEM QRS Duration 82 ms MUSE SYSTEM Q-T Interval 392 ms MUSE SYSTEM QTC Calculated (Bezet) 429 ms MUSE SYSTEM Calculated P [place] 71 degrees MUSE SYSTEM Calculated R [place] 77 degrees MUSE SYSTEM Calculated T [place] 28 degrees MUSE SYSTEM INTERPRETATION Sinus rhythm [...] - BLO OD ORDERABLES Performing Organization Address City/[facility]/ZIP Co de Phone Number [facility] [place] [address] * XR Chest One View (07/29/2024 2:30 PM EST) Only the most recent of3 resultswithin the time period is included. WORKSTATION ID [id number] RAD Anatomical Region Laterality Modality Chest N/A [...] questions please contact the health animal care technician that requested your imaging first. ? Electronically signed by: Chris Candelaria MD, [facility] ([phone]), at 07/29/2024 3:21 PM Narrative 07/29/2024 3:21 [...] have questions please contactthe health animal care technician that requested your imaging first. Electronically signed by: Chris Candelaria MD, [facility]([phone]), at 07/29/2024 3:21 PM Vahe Marvin MD IMG DX ORDERABLES * TSH Crane (07/29/2024 2:03 PM EST) Thyroid Stimulating Hormone 0.70 0.27 - 4.20 mcIU/mL 07/29/2024 2:52 PM EST [facility] Blood VENOUS BLOOD SPECIMEN / Unknown Venipuncture / Unknown 07/29/2024 2:03 PM EST 07/29/2024 2:14 PM EST Vahe Marvin MD CHEMISTRY ORDERABLES [facility] [place] [address] * CRP, acute inflammation (07/29/2024 2:03 PM EST) Pathologist [facility] C-Reactive Protein <3.0 <=4.9 mg/L 07/29/2024 2:52 PM EST [facility] Blood VENOUS BLOOD SPECIMEN / Unknown Venipuncture / Unknown 07/29/2024 2:03 PM EST 07/29/2024 2:14 PM EST Vahe Marvin MD CHEMISTRY ORDERABLES Performing Organization Address City/[facility]/ZIP Co de Phone Number [facility] [place] [address] * (ABNORMAL) APTT (07/29/2024 2:03 PM EST) Pathologist [facility] Partial Thromboplastin Time >160(HHH) 25 - 37 sec 07/29/2024 2:56 PM EST [facility] Blood VENOUS BLOOD SPECIMEN / Unknown Venipuncture / Unknown 07/29/2024 2:03 PM EST 07/29/2024 2:13 PM EST Vahe Marvin MD HEMATOLOGY ORDERABLE S [facility] [place] [address] * (ABNORMAL) Prothrombin Time (07/29/2024 2:03 PM EST) Pathologist [facility] Prothrombin Time 14.2(H) 9.4 - [...] MD HEMATOLOGY ORDERABLE S [facility] [place] [address] * Hemoglobin A1c (07/29/2024 2:03 PM EST) [...] blood cell turnover may not be client support representative of glycemic control. Reference Interval: 4.3 - 5.6% 5.7 - 6.4%: Consistent with prediabetes >=6.5%: Consistent with diagnosis of diabetes mellitus Estimated Average Glucose 07/29/2024 2:41 PM EST [facility] Comment:Estimated Average Gl ucose not appropriate for patients over 70 years of age. Blood VENOUS BLOOD SPECIMEN / Unknown Venipuncture / Unknown 07/29/2024 2:03 PM EST 07/29/2024 2:14 PM EST [facility] - 07/29/2024 2:41 PM EST Estimated average glucose (eAG) is calculated from the equation described in: Quinten ALVES, Rikki J, Reno R, et al. ??Translating the A1C assay into estimated average glucose values. ??Diabetes Care 2008:31(8):9138-1257. Additional resources are available on the ADA website (diabetes.org). Vahe Marvin MD CHEMISTRY ORDERABLES [facility] [place] [address] * Lipid Panel (Reflex Direct LDL) (07/29/2024 2:03 PM EST) [facility] Cholesterol, Total 133 mg/dL 07/29/2024 2:52 [...] 2:03 PM EST 07/29/2024 2:14 PM EST [facility] - 07/29/2024 2:52 PM EST [...] ACC/AHA Guidelines (most recently Rolf et al. [facility] 06/15/22): * For individuals with atherosclerotic [...] Marvin MD CHEMISTRY ORDERABLES [facility] [place] [address] * (ABNORMAL) Comprehensive metabolic panel (07/29/2024 2:03 PM EST) Glucose 243(H) 65 - 199 mg/dL 07/29/2024 3:11 PM EST [facility] Comment:Glucose Concentratio n >=200 mg/dL plus symptoms is consistent with Diabetes Mellitus. Blood Urea Nitrogen 13 10 - 20 mg/dL 07/29/2024 3:11 PM EST [facility] Creatinine 0.88 0.80 - 1.50 mg/dL 07/29/2024 3:11 PM EST [facility] Sodium 138 135 - 145 [...] 3.2 - 5.2 g/dL 07/29/2024 3:11 PM EST [facility] Aspartate Aminotransferase 07/29/2024 3:11 PM EST [facility] Comment:Unable to report due to hemolysis. Alanine Aminotransferase 56(H) 0 - 55 unit/L 07/29/2024 3:11 PM EST [facility] Alkaline Phosphatase 58 40 - [...] Marvin MD CHEMISTRY ORDERABLES [facility] [place] [address] * (ABNORMAL) Blood Gas, Venous POC (07/29/2024 2:01 PM EST) pH, Venous 7.30(L) 7.32 - 7.42 07/29/2024 2:02 PM EST [facility] PCO2, Venous 42 38 - [...] CARE TEST O RDERABLES [facility] [place] [address] * (ABNORMAL) BLOOD GAS, POC (07/29/2024 12:46 [...] - 26.0 mmol/L 07/30/2024 7:30 AM EST [facility] Carbon Dioxide, POC 21(L) 22 - 31 mmol/L 07/30/2024 7:30 AM EST [facility] Blood VENOUS BLOOD SPECIMEN / Unknown 07/29/2024 12:46 PM EST 07/30/2024 7:30 AM EST Vahe Marvin MD POINT OF CARE TEST O RDERABLES [facility] [place] [address] * External Cardiology Result (07/29/2024 10:13 AM EST) Anatomical Region Laterality Modality Other Historical Provider EXTERNAL CARDIOLO GY RESULT * Scan Doc: EEG (07/29/2024 9:44 AM EST) Historical Provider MEDIA MGR SCAN EX T ORDR/RSLT * COLONOSCOPY (08/30/2023 10:57 AM EST) COLONOSCOPY [facility] Endoscopy Procedure Date: 08/30/2023 10:57 AM ? Patient Name: Korey Montoya ? Date of : 1950 ? Age: 73 ? Order #: [id number] ? Instrument Name: [id number] ? Procedure: ? Colonoscopy Indications: ? Rectal pain Providers: ? Brandan Mcgovern, Tika Fowler, Ty ? Aidan Murillo MD: ?Yoel Artis Medicines: ? Midazolam 4.5 [...] preparation was evaluated ? using the BBPS (Buchanan Bowel ? Preparation Scale) with scores of: [...] Content of discussion: pre-arrest limitations Care Teams Reel Tender Relationship Specialty Start Date End Date Alexia Mtz, ACCORDION REPAIRER [address] [place] [address] PCP - General Family Medicine 07/30/24
--- OUTSIDE RECORDS SUMMARY | 2024-09-26 10:17 | XMS_ITS | Encounter Summary ---
Author Organization [facility] Address [facility] [place] [address] Care Team Providers Care Thermal Molder Name Role Phone West LealmanAlexia shell Shun ALCALA Primary Care Provider [phone] Reason for Referral * Consultation (Routine) - Authorized Specialty Diagnoses / Procedures Referred By Conteleazar t Referred To Contact Cardiology Diagnoses HFrEF (heart failure with reduced ejection fraction) CHF CLINIC S/P D/C acute HFrEF Alex Small MD [facility] [place] [address] Mushtaq Murphy APRN [facility] [place] [address] Referral ID Status Reason Start Date Expiration Date Visits Requested Visits Authorized [id number] Authorized Consult, Test & Treat 08/04/2024 08/04/2025 1 1 * Consultation (Routine) - Authorized Specialty Diagnoses / Procedures Referred By Contac t Referred To Contact Cardiology Diagnoses ST elevation myocardial infarction involving left anterior descending (LAD) coronary artery Yrn Ward MD [facility] [place] [address] Cardiac Rehab, [address] [place] [address] Referral ID Status Reason Start Date Expiration Date Visits Requested Visits Authorized [id number] Authorized Consult, Test & Treat 08/04/2024 01/31/2025 36 36 Reason for Visit * Auth/Cert (Routine) Specialty Diagnoses / Procedures Referred By Contac t Referred To Contact Diagnoses STEMI (ST elevation myocardial infarction) STEMI Procedures ER IPI Vahe Marvin MD [facility] [place] [address] [facility] Referral ID Status Reason Start Date Expiration Date Visits Re quested Visits Authorized [id number] 1 1 Encounter Details Date Type Department Care Team (Latest Contact Info) Description 07/29/2024 11:45 AM EST - 08/04/2024 5:00 PM EST Hospital Encounter Cardiovascular [place] [phone] Vahe Marvin MD [facility] [place] [address] Jay Silverio MD [facility] [place] [address] Krystal Parker MD [facility] [place] [address] Bridgette Stauffer MD [facility] [place] [address] Yrn Ward MD [facility] [place] [address] Alex Small MD [facility] [place] [address] ST elevation myocardial infarction involving left anterior [...] Korey Montoya Patient Age: 74 y.o. Language: Peruvian Race: White Ethnicity: Not nor Admit date: [...] please contact your inpatient physician through the [facility] Stereotype Caster . Issues afterhours and on weekends will [...] EKG. Patient transferred via air ambulance to [facility] on 07/29 for LHC and LOW to [...] EKG. Was transferred via air ambulance to [facility] for further management and LHC demonstrated 100% occlusion. No significant RCA, LMCA, or LCX disease. LOW placed in LAD with some residual distal disease meriting placement of overlapping distal stent. TTE showed apical akinesis and inferior hypokinesis with EF 20%. RHC showed elevated filling pressures. Impella placed and P-level 6 at time of transfer to [facility]. CI initially 1.97, improved to 2.2 [...] the next year. Access was via right COMPUTER SYSTEMS SOFTWARE ENGINEER and this sitewas clean, dry and intact [...] for Chest pain. Replaces: nitroGLYcerin 400 mcg/spray [place], Non-Aerosol 0.4 mg Quantity: 90 tablet Refills: [...] Refills: 0 STOPPED Medications nitroGLYcerin 400 mcg/spray [place], Non-Aerosol Commonly known as: NITROLINGUAL Replaced by: [...] of one year. After this time, your non cdl driver will determine if you need to continue [...] away. Stay on the phone. The emergency knife operator will tell you what to do. [...] appointments: During 8am-5pm Tuesday through Tuesday call [phone] to speak with a nurse in the cardiology clinic All other times call [phone] and ask to speak to the major assembly inspector sales operations director. Follow up Appointments: PCP Alexia Mtz, PARA PROFESSIONAL [phone]. Please call to establish a follow up appointment within 1-2 weeks of discharge. Cardiology. Referral to heart failure has been sent. General Instructions None Future Appointments and Orders Future Orders Complete By Expires Referral to Cardiac Rehab [[id number] Custom] As directed Process Instructions: If no progress note charted, please enter Clinical details in comments. Scheduling Instructions: Questions: My question or request is: STEMI, PCI- cardiac rehab at [facility] Referral to Cardiology [REF12 Custom] [...] of one year. After this time, your non cdl driver will determine if you need to continue [...] away. Stay on the phone. The emergency knife operator will tell you what to do. [...] appointments: During 8am-5pm Tuesday through Tuesday call [phone] to speak with a nurse in the cardiology clinic All other times call [phone] and ask to speak to the major assembly inspector sales operations director. Follow up Appointments: PCP Alexia Mtz, PARA PROFESSIONAL [phone]. Please call to establish a follow up [...] EKG. Patient transferred via air ambulance to [facility] on 07/29 for LHC and LOW to [facility] for 100% occlusion Social History: Pt lives with his in a 1 level home with 2 NAOMI. 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 [...] Total time: 35 (tef) minutes Time IN/OUT: [id number] ZAIDA DUBOSE PT Pager: [phone] Physical Therapy Inpatient Rehabilitation Department * Yrn Ward MD - 08/03/2024 10:38 AM EST CV HOSPITALIST 2 - [facility] DAILY PROGRESS NOTE Page [phone] to reach a provider 04/04 Admit Date: [...] Compared to the overnight study by the sales operations director fellow the impella position is stable. 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 [facility] 07/29/24 Conclusions: * One vessel coronary artery disease (LAD) * Mild pulmonary hypertension * Elevated pulmonary capillary wedge pressure * Successful stent insertion of the proximal LAD lesion * See Dual Antiplatelet (DAPT) Recommendations above * Successful impella placement for cardiogenic shock. Telemetry: I have personally reviewed and interpreted the telemetry from the last 24 hours. [facility] Assessment: ASSESSMENT: Korey Montoya is a 74 y.o. male w/ PMH of hypertension, HLD, and BPH who presents for chief concern of chest pain after being found to have ST elevations on EKG. Patient transferred via air ambulance to [facility] on 07/29 for LHC and LOW to [...] to be determined OT: PCP Alexia Mtz, PARA PROFESSIONAL [phone] * Zaida Dubose, PT - 08/02/2024 2:08 PM EST Physical Therapy Evaluation Patient profile: Korey Montoya is a 74 y.o. male w/ PMH of hypertension, HLD, and BPH who presents for chief concern of chest pain after being found to have ST elevations on EKG. Patient transferred via air ambulance to [facility] on 07/29 for LHC and LOW to LAD for 100% occlusion Social History: Pt lives with his in a 1 level home with 2 NAOMI. 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 [...] Total time: 37 (eval) minutes Time IN/OUT: 9944-2702 ZAIDA DUBOSE PT Pager: [phone] Physical Therapy Inpatient Rehabilitation Department * Gagan [...] EKG. Patient transferred via air ambulance to [facility] on 07/29 for LHC and LOW to LAD for 100% occlusion. TTE showed apical akinesis and inferior hypokinesis with EF 20%. RHC showed elevated filling pressures. Impella placed and P-level 6 at time of transfer to [facility]. CI initially 1.97, improved to 2.2 After impella. Received about 3 L of fluid during procedural course. Patient initially required norepinephrine 30, epinephrine 10, and vasopressin 0.04 for hemodynamic support, which was weaned upon arrival to [facility] to norepinephrine 20and levo 0.04 N [...] PCP: Alexia Mtz APRN PCP phone number: [phone] Date of Admission: 07/29/2024 ( Hospital Day 4 days ) Attending:Bridgette Stauffer MD ID: Korey Montoya is a 74 y.o. male w/ PMH of hypertension, HLD, and BPH on Hospital Day4 for chief concern of chest pain after being found to have ST elevations on EKG. Patient transferred via air ambulance to [facility] on 07/29 for LHC and LOW to [...] 07/29/24 1621 PHART 7.48* 7.44 7.38 7.37 SUU0ZTM 29* 29* 34* 36 PO2ART 71* 109* 141* 71* ZVQ9TPA 20.6 19.4* 19.5* 20.4 VBG (Venous Blood Gas) Recent Labs 07/29/24 1401 PHVEN 7.30* PO2VEN 39 IHG3CCZ 20.1* Mixed Venous Sat No results for input(s): V5LWXP7 in the last 168 hours. Objective: Vitals [...] 07/29/24 1621 PHART 7.48* 7.44 7.38 7.37 LYY8UZT 29* 29* 34* 36 PO2ART 71* 109* 141* 71* IXS4BCB 20.6 19.4* 19.5* 20.4 VBG (Venous Blood Gas) Recent Labs 07/29/24 1401 PHVEN 7.30* PO2VEN 39 FJM4BRR 20.1* Mixed Venous Sat No results for input(s): N6TUSJ1 in the last 168 hours. Microbiology: Microbiology Results (Last 30 days) Procedure Component Value Units Date/Time Blood culture [[id number]] Collected: 07/29/241607 Lab Status: Preliminary result Specimen: Blood, Venous Updated: 08/01/24 170 Blood Culture No growth at 72 hours Blood culture [[id number]] Collected: 07/29/241607 Lab Status: Preliminary result Specimen: Blood, Venous Updated: 08/01/241700 Blood Culture No growth at 72 hours Imaging: Results for orders placed or performed during the hospital encounter of 07/29/24 XR Chest One View (Exam End: 07/29/2024 2:30 PM) Result Value WORKSTATION ID [id number] Impression 1. No pulmonary edema. 2. No pleural effusion. 3. No pneumothorax. Thank you for letting us participate in the care of this patient. If you are a health care provider and have any questions regarding this report, please contact the number below. For patients who have questions please contact the health critical care unit nurse that requested your imaging first. Electronically signed by: Chris Candelaria MD, [facility] ([phone]), at 07/29/2024 3:21 PM TTE ( 07/30/24) [...] Compared to the overnight study by the sales operations director fellow the impella position is stable. [...] EKG. Patient transferred via air ambulance to [facility] on 07/29 for LHC and LOW to [...] Susannah Ornelas MD Internal Medicine, PGY-1 Cardiology, [facility] 08/02/24 12:45 PM CARDIOLOGY STAFF NOTE [...] today). Transfer to floor. Krystal Parker MD, [facility], [facility] Staff Environmental Program Manager food service employee * Gagan Catherine MD - 08/01/2024 11:12 AM EST STAFF PROGRESS NOTE Critical Care Medicine Author: Gagan Catherine MD Patient seen and examined on critical care rounds. Korey Monotya is a 74 y.o. male with the [...] EKG. Patient transferred via air ambulance to [facility] on 07/29 for LHC and LOW to [...] PCP: Alexia Mtz APRN PCP phone number: [phone] Date of Admission: 07/29/2024 ( Hospital Day 3 days ) Attending:Krystal Parker MD ID: Korey Montoya is a 74 y.o. male w/ PMH of hypertension, HLD, and BPH on Hospital Day3 for chief concern of chest pain after being found to have ST elevations on EKG. Patient transferred via air ambulance to [facility] on 07/29 for LHC and LOW to [...] 07/29/24 1621 PHART 7.48* 7.44 7.38 7.37 RKS8YDY 29* 29* 34* 36 PO2ART 71* 109* 141* 71* ENZ2XXD 20.6 19.4* 19.5* 20.4 VBG (Venous Blood Gas) Recent Labs 07/29/24 1401 PHVEN 7.30* PO2VEN 39 IBT0YDT 20.1* Mixed Venous Sat No results for input(s): M2ZXIE7 in the last 168 hours. PA Catheter [...] 07/29/24 1621 PHART 7.48* 7.44 7.38 7.37 NIY4EFG 29* 29* 34* 36 PO2ART 71* 109* 141* 71* GHC2SZO 20.6 19.4* 19.5* 20.4 VBG (Venous Blood Gas) Recent Labs 07/29/24 1401 PHVEN 7.30* PO2VEN 39 UKE2DHR 20.1* Mixed Venous Sat No results for input(s): B9BUGE7 in the last 168 hours. Microbiology: Microbiology Results (Last 30 days) Procedure Component Value Units Date/Time Blood culture [[id number]] Collected: 07/29/241607 Lab Status: Preliminary result Specimen: Blood, Venous Updated: 07/31/241700 Blood Culture No growth at 48 hours Blood culture [[id number]] Collected: 07/29/241607 Lab Status: Preliminary result Specimen: Blood, Venous Updated: 07/31/241700 Blood Culture No growth at 48 hours Imaging: Results for orders placed or performed during the hospital encounter of 07/29/24 XR Chest One View (Exam End: 07/29/2024 2:30 PM) Result Value WORKSTATION ID [id number] Impression 1. No pulmonary edema. 2. No pleural effusion. 3. No pneumothorax. Thank you for letting us participate in the care of this patient. If you are a health care provider and have any questions regarding this report, please contact the number below. For patients who have questions please contact the health critical care unit nurse that requested your imaging first. Electronically signed by: Chris Candelaria MD, [facility] ([phone]), at 07/29/2024 3:21 PM TTE ( 07/30/24) [...] Compared to the overnight study by the sales operations director fellow the impella position is stable. [...] EKG. Patient transferred via air ambulance to [facility] on 07/29 for LHC and LOW to [...] Susannah Ornelas MD Internal Medicine, PGY-1 Cardiology, [facility] 08/01/24 7:13 AM CARDIOLOGY STAFF NOTE [...] with him; questions answered. Krystal Parker MD, [facility], [facility] Staff Environmental Program Manager food service employee * Krystal Parker MD - 07/31/2024 1:06 [...] ILL WITH THESE DIAGNOSES BEING MANAGED BY [facility] TEAM: # Anterior STEMI, late-presenting # [...] EKG. Patient transferred via air ambulance to [facility] on 07/29 for LHC and LOW to LAD for 100% occlusion. TTE showed apical akinesis and inferior hypokinesis with EF 20%. RHC showed elevated filling pressures. Impella placed and P-level 6 at time of transfer to [facility]. CI initially 1.97, improved to 2.2 After impella. Received about 3 L of fluid during procedural course. Patient initially required norepinephrine 30, epinephrine 10, and vasopressin 0.04 for hemodynamic support, which was weaned upon arrival to [facility] to norepinephrine 20and levo 0.04 N [...] PCP: Alexia Mtz APRN PCP phone number: [phone] Date of Admission: 07/29/2024 ( Hospital Day 2 days ) Attending:Krystal Parker MD ID: Korey Montoya is a 74 y.o. male w/ PMH of hypertension, HLD, and BPH on Hospital Day2 for chief concern of chest pain after being found to have ST elevations on EKG. Patient transferred via air ambulance to [facility] on 07/29 for LHC and LOW to [...] 0057 07/29/24 1621 PHART 7.44 7.38 7.37 XOY3RGI 29* 34* 36 PO2ART 109* 141* 71* SKE1BMO 19.4* 19.5* 20.4 VBG (Venous Blood Gas) Recent Labs 07/29/24 1401 PHVEN 7.30* PO2VEN 39 CGS1NGY 20.1* Mixed Venous Sat No results for input(s): J1LJIT1 in the last 168 hours. PA Catheter [...] 0057 07/29/24 1621 PHART 7.44 7.38 7.37 RMJ9ZJR 29* 34* 36 PO2ART 109* 141* 71* TOE9EXO 19.4* 19.5* 20.4 VBG (Venous Blood Gas) Recent Labs 07/29/24 1401 PHVEN 7.30* PO2VEN 39 QQE7RBI 20.1* Mixed Venous Sat No results for input(s): L6RRBV7 in the last 168 hours. Microbiology: Microbiology Results (Last 30 days) Procedure Component Value Units Date/Time Blood culture [[id number]] Collected: 07/29/241607 Lab Status: Preliminary result Specimen: Blood, Venous Updated: 07/30/241700 Blood Culture No Growth at 18-24 hrs. Blood culture [[id number]] Collected: 07/29/241607 Lab Status: Preliminary result Specimen: Blood, Venous Updated: 07/30/241700 Blood Culture No Growth at 18-24 hrs. Imaging: Results for orders placed or performed during the hospital encounter of 07/29/24 XR Chest One View (Exam End: 07/29/2024 2:30 PM) Result Value WORKSTATION ID [id number] Impression 1. No pulmonary edema. 2. No pleural effusion. 3. No pneumothorax. Thank you for letting us participate in the care of this patient. If you are a health care provider and have any questions regarding this report, please contact the number below. For patients who have questions please contact the health critical care unit nurse that requested your imaging first. Electronically signed by: Chris Candelaria MD, [facility] ([phone]), at 07/29/2024 3:21 PM TTE ( 07/30/24) [...] Compared to the overnight study by the sales operations director fellow the impella position is stable. [...] chloride in water, ondansetron Assessment & Plan: oKrey Montoya is a 74 y.o. male w/ PMH of hypertension, HLD, and BPH on HD# 2 for chief concern of chest pain after being found to have ST elevations on EKG. Patient transferred via air ambulance to [facility] on 07/29 for LHC and LOW to [...] work to optimize volume status while continuing gcrrndr-ivpxmz-jpsfeijsby therapies at this time. Obtain comprehensive TTE. [...] EKG. Patient transferred via air ambulance to [facility] on 07/29 for LHC and LOW to LAD for 100% occlusion. TTE showed apical akinesis and inferior hypokinesis with EF 20%. RHC showed elevated filling pressures. Impella placed and P-level 6 at time of transfer to [facility]. CI initially 1.97, improved to 2.2 After impella. Received about 3 L of fluid during procedural course. Patient initially required norepinephrine 30, epinephrine 10, and vasopressin 0.04 for hemodynamic support, which was weaned upon arrival to [facility] to norepinephrine 20and levo 0.04 N [...] PCP: Yoel Artis APRN PCP phone number: [phone] Date of Admission: 07/29/2024 ( Hospital Day 1 day ) Attending:Jay Silverio MD ID: Korey Montoya is a 74 y.o. male w/ PMH of hypertension, HLD, and BPH on Hospital Day1 for chief concern of chest pain after being found to have ST elevations on EKG. Patient transferred via air ambulance to [facility] on 07/29 for LHC and LOW to [...] 0057 07/29/24 1621 PHART 7.44 7.38 7.37 PAS1CNL 29* 34* 36 PO2ART 109* 141* 71* CII4AQQ 19.4* 19.5* 20.4 VBG (Venous Blood Gas) Recent Labs 07/29/24 1401 PHVEN 7.30* PO2VEN 39 NNF8EKW 20.1* Lactate ( Last 12 hours) 1.3 >> 1.2 Mixed Venous Sat No results for input(s): D7JZJD9 in the last 168 hours. PA Catheter [...] 0057 07/29/24 1621 PHART 7.44 7.38 7.37 NYW0QXU 29* 34* 36 PO2ART 109* 141* 71* IKI7WIY 19.4* 19.5* 20.4 VBG (Venous Blood Gas) Recent Labs 07/29/24 1401 PHVEN 7.30* PO2VEN 39 KXH4CIW 20.1* Mixed Venous Sat No results for input(s): I4KLWE8 in the last 168 hours. Microbiology: Microbiology Results (Last 30 days) Procedure Component Value Units Date/Time Blood culture [[id number]] Collected: 07/29/24 160 Lab Status: In process Specimen: Blood, Venous Updated: 07/29/24 162 Blood culture [[id number]] Collected: 07/29/241607 Lab Status: In process Specimen: Blood, Venous Updated: 07/29/24 161 Imaging: Results for orders placed or performed during the hospital encounter of 07/29/24 XR Chest One View (Exam End: 07/29/2024 2:30 PM) Result Value WORKSTATION ID [id number] Impression 1. No pulmonary edema. 2. No pleural effusion. 3. No pneumothorax. Thank you for letting us participate in the care of this patient. If you are a health care provider and have any questions regarding this report, please contact the number below. For patients who have questions please contact the health critical care unit nurse that requested your imaging first. Electronically signed by: Chris Candelaria MD, [facility] ([phone]), at 07/29/2024 3:21 PM Medications Scheduled Meds: [...] EKG. Patient transferred via air ambulance to [facility] on 07/29 for LHC and LOW to [...] EKG. Patient transferred via air ambulance to [facility] on 07/29 for LHC and LOW to [...] EKG. Was transferred via air ambulance to [facility] for further management and [facility] demo nstrated 100% occlusion. No significant [...] mouth. Past Week nitroGLYcerin (NITROLINGUAL) 400 mcg/spray [place], Non-Aerosol 1 spray to anus for proctalgia [...] 3.5 guiding catheter and a 3.5 [address] [facility] 20 Mhz using Manual pullback. Imaging [...] priority for the procedure was Emergent. The [facility] indication for the procedure was STEMI-Immediate [...] atmospheres. A premounted 3.00 x 22 mm [place] (LOW) was deployed with a maximum inflation [...] atmospheres. A premounted 3.00 x 08 mm [place] (LOW) was deployed with a maximum inflation [...] a limited study performed by a fellow sales operations director to evaluate for cardiogenic shock with [...] Compared to the overnight study by the sales operations director fellow the impella position is stable. [...] EKG. Patient transferred via air ambulance to [facility] on 07/29 for LHC and LOW to LAD for 100% occlusion. TREATMENT PLAN: # STEMI, status post PCI to LAD # ASCVD # Ischemic cardiomyopathy, EF of 33% # Cardiogenic shock-resolved -Patient needed inotropic and pressor support on presentation, currently off dobutamine for the last 24 hours. Status post left heart catheterization, 07/29/2024, OLW to LAD for 100% occlusion. Currently off [...] PCP: Yoel Artis APRN PCP phone number: [phone] Date of Admission: 07/29/2024 ( Hospital Day 0 days ) Attending:Jay Silverio MD ID: Korey Montoya is a 74 y.o. male w/ PMH of hypertension, HLD, and BPH who presents for chief concern of chest pain after being found to have ST elevations on EKG. Patient transferred via air ambulance to [facility] on 07/29 for LHC and LOW to LAD for 100% occlusion. HPI: Korey Montoya is a 74 y.o. male w/ PMH of hypertension, HLD, and BPH who presents for chief concern of chest pain after being found to have ST elevations on EKG. Patient transferred via air ambulance to [facility] on 07/29 for LHC and LOW to [...] EKG. Was transferred via air ambulance to [facility] for further management and LHC demonstrated 100% [...] Blood Gas) No results for input(s): PHART, FLG4LJG, PO2ART, UET8RIQ, LACTATEVEN, RRU8RYP, PFRATIOART2 in the last 168 hours. VBG (Venous Blood Gas) Recent Labs 07/29/24 1401 PHVEN 7.30* PO2VEN 39 GVY8TVL 20.1* Mixed Venous Sat No results for input(s): J5LHVL4 in the last 168 hours. PA Catheter [...] Blood Gas) No results for input(s): PHART, YUZ7BFR, PO2ART, UGS6UHZ, LACTATEVEN, GDV8HON, PFRATIOART2 in the last 168 hours. VBG (Venous Blood Gas) Recent Labs 07/29/24 1401 PHVEN 7.30* PO2VEN 39 HGW0IYL 20.1* Mixed Venous Sat No results for input(s): I8FUBU7 in the last 168 hours. Microbiology: Microbiology [...] EKG. Patient transferred via air ambulance to [facility] on 07/29 for C. Found to have 100% occlusion of LAD for which he underwent LOW to LAD.Otherwise no other significant vessel disease. Fahad is currently hemodynamically tenuous but improving upon admission to [facility], requiring hemodynamic support with norepinephrine and vasopressin at time of admission along with mechanical support with Impella device. Reassuringly, he demonstrates decreasing pressor requirements since admission to [facility], with epinephrine completely weaned. He does [...] Bernardo Amos MD Internal Medicine, PGY-3 Cardiology, [facility] 07/29/24 3:14 PM Cardiology Attending Note [...] FACP, FACC Section of Cardiovascular Medicine [facility] [employer] Objects Consultantoverlock waistline joiner [facility] [...] to the planned procedure. Hand Hygiene: The plastic frame inserter did perform hand hygiene prior to [...] ease. Good wave form. Ivan Hernandez MD Recruiter Associated attestation - Rolando Yeh MD - [...] Fahad was quite active prior to his [place]. 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 Given parameters for home exercise. He follows a heart healthy diet and is not overweight. His lipids are wnl. Participation in an outpatient cardiac rehabilitation program at [facility] was discussed. Patient agrees to [...] Payor: AARP MANAGED MEDICARE / Plan: AARP [facility] MANAGED MEDICARE COMPLETE / Product [...] of Discharge: 08/04/2024 Gaby Wong RN, CM [phone] * Initial Assessments - Char Meza OT - 08/03/2024 10:00 AM EST Occupational Therapy Evaluation Patient profile: Korey Montoya is a 74 y.o. male admitted on 07/29/2024 w/ PMH of hypertension, HLD, and BPH who presents for chief concern of chest pain after being found to have ST elevations onEKG. Patient transferred via air [place] [facility] [place] for LHC and LOW to [...] falls. Subjective: I have access to an [employer] weight gym. (Educated to wait for MD [...] evaluation only Total Minutes, Occupational Therapy: 14 ([id number] (evaluation)) 2017 OT Evaluation Code Rationale: Diagnosis [...] and measurable assessment of functional outcome. 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 (Only good for 180 days) Any patient receiving care in [place] must abide by [place] law. The hierarchy for surrogate decision making [...] (i) The agent with financial power of trial attorney or a conservator appointed in accordance [...] homeless or living in a longterm (including now)?: No In the past 12 months has the [employer] gas, oil, or water [employer] threatened to shut off services in your [...] Mailing Address: [address] [place] [address] Physical Address: [address] [place], [place] Social & Family Supports: All names [...] points: Addiction likely Health/Prescription Coverage: Primary Insurance: [facility] [employer] MEDICARE Payor: [facility] MANAGED MEDICARE / Plan: [facility] [employer] MEDICARE COMPLETE / Product Type: *No Product type* / Secondary Insurance: N/A ; Prescription Coverage: Yes Preferred Pharmacy: [address] [address] [place] Status: Patient is a : No Primary Care Provider confirmed: Alexia Mtz, FREDRICK [phone] Patient/Caregiver Goals of Treatment: return home Potential [...] 6:25 PM EST 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 CXR and EKG [...] Procedure Note: Patient Name: Korey Montoya : [id number] MR#: [id number] Case Date: 07/29/2024 Stereotype Caster: Surgeons and Role: * Vahe Marvin MD - Primary * Susannah Watts PA - Physician Family And Consumer Science Professor Preoperative diagnosis: STEMI Postoperative diagnosis: * STEMI, LAD Artery * * Cardiogenic Shock * Procedure(s) performed: [facility] Coronary angiogram Stent insertion coronary IVUS coronary Venous line insert [facility] [place] Colette Catheter Vascular closure device Ventricular [...] x 22 mm to 14 deonna JEISON Wolfe with LIZ 3 flow. Residual distal disease at distal stent, overlapping distal stent was inserted with 3.0 x 8 mm JEISON Wolfe. Systolic's in the 80's sustained. Patient re [...] AM EST Office Visit Cardiology at [address] [phone] Mushtaq Murphy, PARA PROFESSIONAL Scheduled Orders Name Type Priority Associated Diagnoses [...] CBC (with Diff) (08/04/2024 6:08 AM EST) [facility] White Blood Cell 7.27 4.00 - 9.50 x10(3)/mc L 08/04/2024 6:39 AM [facility] Red Blood Cell 4.28(L) 4.58 - 5.54 x10(6)/mc L 08/04/2024 6:39 AM [facility] Hemoglobin 11.6(L) 13.7 - 16.5 g/dL 08/04/2024 6:39 AM [facility] Hematocrit 34.8(L) 40.5 - 48.5 % 08/04/2024 6:39 AM [facility] Mean Cell Volume 81.3(L) 82.9 - 93.1 fL 08/04/2024 6:39 AM [facility] Mean Cell Hemoglobin 27.1(L) 27.5 - 32.1 pg 08/04/2024 6:39 AM [facility] Mean Cell Hemoglobin Concentration 33.3 32.0 - 35.7 g/dL 08/04/2024 6:39 AM [facility] Platelet 178 145 - 357 x10(3)/mc L 08/04/2024 6:39 AM [facility] Mean Platelet Volume 10.6 7.6 - 12.9 fL 08/04/2024 6:39 AM [facility] RDW Standard Deviation 42.0 36.0 - 45.0 fL 08/04/2024 6:39 AM [facility] RDW coefficient of variation 14.3(H) 11.4 - 13.8 % 08/04/2024 6:39 AM [facility] NRBC% auto 0.0 % 08/04/2024 6:39 AM [facility] NRBC Absolute <0.01 <0.01 x10(3)/mc L 08/04/2024 6:39 AM [facility] Neutrophil % 72.1 % 08/04/2024 6:39 AM [facility] Neutrophil Absolute (ANC) - Automated 5.24 1.70 - 6.10 x10(3)/mc L 08/04/2024 6:39 AM [facility] Lymph % 16.8 % 08/04/2024 6:39 AM [facility] Lymph Absolute 1.22 0.90 - 3.20 x10(3)/mc L 08/04/2024 6:39 AM [facility] Monocyte % 8.5 % 08/04/2024 6:39 AM [facility] Monocyte Absolute 0.62 0.30 - 0.90 x10(3)/mc L 08/04/2024 6:39 AM [facility] Eos % 1.9 % 08/04/2024 6:39 AM [facility] Eos Absolute 0.14 0.00 - 0.40 x10(3)/mc L 08/04/2024 6:39 AM [facility] Basophil % 0.4 % 08/04/2024 6:39 AM [facility] Baso Absolute <0.04 0.00 - 0.10 x10(3)/mc L 08/04/2024 6:39 AM [facility] Immature Gran % 0.3 % 6:39 AM [facility] Immature Gran Absolute <0.04 0.00 - 0.04 x10(3)/mc L 08/04/2024 6:39 AM [facility] Blood VENOUS BLOOD SPECIMEN / Unknown Venipuncture / Unknown 08/04/2024 6:08 AM EST 08/04/2024 6:19 AM EST Bridgette Stauffer MD HEMATOLOGY ORDERABLE S [facility] [place] [address] * Magnesium (08/04/2024 6:08 AM EST) Magnesium 0.85 0.69 - 1.07 mMol/L 08/04/2024 7:07 AM [facility] Blood VENOUS BLOOD SPECIMEN / Unknown Venipuncture / Unknown 08/04/2024 6:08 AM EST 08/04/2024 6:19 AM EST Bridgette Stauffer MD CHEMISTRY ORDERABLES [facility] [place] [address] * Basic Metabolic Panel (08/04/2024 6:08 AM EST) Glucose 93 65 - 199 mg/dL 08/04/2024 7:07 AM [facility] Comment:Glucose Concentratio n >=200 mg/dL plus symptoms is consistent with Diabetes Mellitus. Blood Urea Nitrogen 14 10 - 20 mg/dL 08/04/2024 7:07 AM [facility] Creatinine 1.07 0.80 - 1.50 mg/dL 08/04/2024 7:07 AM EST [facility] Sodium 138 135 - 145 mMol/L 08/04/2024 7:07 AM [facility] Potassium 4.3 3.5 - 5.0 mMol/L 08/04/2024 7:07 AM [facility] Chloride 107 98 - 107 mMol/L 08/04/2024 7:07 AM [facility] Carbon Dioxide 23 22 - 31 mMol/L 08/04/2024 7:07 AM [facility] Anion Gap 8 5 - 15 mMol/L 08/04/2024 7:07 AM [facility] Calcium 8.5 8.5 - 10.5 mg/dL 08/04/2024 7:07 AM [facility] Est Glomerular Filtration Rate - Male 74 mL/min/1. 73 m?? 08/04/2024 7:07 AM [facility] Comment: This patient's estimated [...] AM EST Bridgette Stauffer MD CHEMISTRY ORDERABLES [facility] [place] [address] * (ABNORMAL) CBC (with Diff) (08/03/2024 5:16 AM EST) White Blood Cell 7.85 4.00 - 9.50 x10(3)/mc L 08/03/2024 5:29 AM [facility] Red Blood Cell 4.43(L) 4.58 - 5.54 x10(6)/mc L 08/03/2024 5:29 AM [facility] Hemoglobin 11.8(L) 13.7 - 16.5 g/dL 08/03/2024 5:29 AM [facility] Hematocrit 35.9(L) 40.5 - 48.5 % 08/03/2024 5:29 AM [facility] Mean Cell Volume 81.0(L) 82.9 - 93.1 fL 08/03/2024 5:29 AM [facility] Mean Cell Hemoglobin 26.6(L) 27.5 - 32.1 pg 08/03/2024 5:29 AM [facility] Mean Cell Hemoglobin Concentration 32.9 32.0 - 35.7 g/dL 08/03/2024 5:29 AM [facility] Platelet 142(L) 145 - 357 x10(3)/mc L 08/03/2024 5:29 AM [facility] Mean Platelet Volume 10.5 7.6 - 12.9 fL 08/03/2024 5:29 AM [facility] RDW Standard Deviation 42.5 36.0 - 45.0 fL 08/03/2024 5:29 AM [facility] RDW coefficient of variation 14.2(H) 11.4 - 13.8 % 08/03/2024 5:29 AM [facility] NRBC% auto 0.0 % 08/03/2024 5:29 AM [facility] NRBC Absolute <0.01 <0.01 x10(3)/mc L 08/03/2024 5:29 AM [facility] Neutrophil % 75.2 % 08/03/2024 5:29 AM [facility] Neutrophil Absolute (ANC) - Automated 5.91 1.70 - 6.10 x10(3)/mc L 08/03/2024 5:29 AM [facility] Lymph % 13.4 % 08/03/2024 5:29 AM [facility] Lymph Absolute 1.05 0.90 - 3.20 x10(3)/mc L 08/03/2024 5:29 AM [facility] Monocyte % 9.0 % 08/03/2024 5:29 AM [facility] Monocyte Absolute 0.71 0.30 - 0.90 x10(3)/mc L 08/03/2024 5:29 AM [facility] Eos % 1.7 % 08/03/2024 5:29 AM [facility] Eos Absolute 0.13 0.00 - 0.40 x10(3)/mc L 08/03/2024 5:29 AM [facility] Basophil % 0.4 % 08/03/2024 5:29 AM [facility] Baso Absolute <0.04 0.00 - 0.10 x10(3)/mc L 08/03/2024 5:29 AM [facility] Immature Gran % 0.3 % 5:29 AM [facility] Immature Gran Absolute <0.04 0.00 - 0.04 x10(3)/mc L 08/03/2024 5:29 AM [facility] Blood VENOUS BLOOD SPECIMEN / Unknown Venipuncture / Unknown 08/03/2024 5:16 AM EST 08/03/2024 5:23 AM EST Bridgette Stauffer MD HEMATOLOGY ORDERABLE S [facility] [place] [address] * Magnesium (08/03/2024 5:16 AM EST) Magnesium 0.89 0.69 - 1.07 mMol/L 08/03/2024 5:56 AM [facility] Blood VENOUS BLOOD SPECIMEN / Unknown Venipuncture / Unknown 08/03/2024 5:16 AM EST 08/03/2024 5:23 AM EST Bridgette Stauffer MD CHEMISTRY ORDERABLES [facility] [place] [address] * (ABNORMAL) Basic Metabolic Panel (08/03/2024 5:16 AM EST) Glucose 98 65 - 199 mg/dL 08/03/2024 5:56 AM [facility] Comment:Glucose Concentratio n >=200 mg/dL plus symptoms is consistent with Diabetes Mellitus. Blood Urea Nitrogen 16 10 - 20 mg/dL 08/03/2024 5:56 AM [facility] Creatinine 0.85 0.80 - 1.50 mg/dL 08/03/2024 5:56 AM EST [facility] Sodium 137 135 - 145 mMol/L 08/03/2024 5:56 AM [facility] Potassium 4.5 3.5 - 5.0 mMol/L 08/03/2024 5:56 AM [facility] Chloride 106 98 - 107 mMol/L 08/03/2024 5:56 AM [facility] Carbon Dioxide 21(L) 22 - 31 mMol/L 08/03/2024 5:56 AM [facility] Anion Gap 10 5 - 15 mMol/L 08/03/2024 5:56 AM [facility] Calcium 8.3(L) 8.5 - 10.5 mg/dL 08/03/2024 5:56 AM [facility] Est Glomerular Filtration Rate - Male 92 mL/min/1. 73 m?? 08/03/2024 5:56 AM [facility] Comment: This patient's estimated [...] Stauffer MD CHEMISTRY ORDERABLES Performing Organization Address [facility]/ZIP Co de Phone Number [facility] [place] [address] * POC, GLUCOSE (08/02/2024 7:47 AM EST) Glucometer, POC 89 65 - 199 mg/dL 08/02/2024 7:47 AM EST [facility] Comment:Supplemental ranges: <140 mg/dL before meals <180 mg/dL all other times of the day. Blood CAPILLARY BLOOD / Unknown 08/02/2024 7:47 AM EST 08/02/2024 7:47 AM EST Krystal Parker MD POINT OF CARE TEST O RDERABLES Performing Organization Address [facility] Co de Phone Number [facility] [place] [address] * (ABNORMAL) CBC (with Diff) (08/02/2024 4:20 AM EST) White Blood Cell 8.51 4.00 - 9.50 x10(3)/mc L 08/02/2024 4:50 AM EST [facility] Red Blood Cell 4.41(L) 4.58 - 5.54 x10(6)/mc L 08/02/2024 4:50 AM EST [facility] Hemoglobin 12.2(L) 13.7 - 16.5 g/dL 08/02/2024 4:50 AM EST [facility] Hematocrit 35.8(L) 40.5 - 48.5 % 08/02/2024 4:50 AM [facility] Mean Cell Volume 81.2(L) 82.9 - 93.1 fL 08/02/2024 4:50 AM [facility] Mean Cell Hemoglobin 27.7 27.5 - 32.1 pg 08/02/2024 4:50 AM [facility] Mean Cell Hemoglobin Concentration 34.1 32.0 - 35.7 g/dL 08/02/2024 4:50 AM [facility] Platelet 111(L) 145 - 357 x10(3)/mc L 08/02/2024 4:50 AM [facility] Mean Platelet Volume 11.1 7.6 - 12.9 fL 08/02/2024 4:50 AM [facility] RDW Standard Deviation 41.9 36.0 - 45.0 fL 08/02/2024 4:50 AM [facility] RDW coefficient of variation 14.1(H) 11.4 - 13.8 % 08/02/2024 4:50 AM [facility] NRBC% auto 0.0 % 08/02/2024 4:50 AM [facility] NRBC Absolute <0.01 <0.01 x10(3)/mc L 08/02/2024 4:50 AM [facility] Neutrophil % 77.7 % 08/02/2024 4:50 AM [facility] Neutrophil Absolute (ANC) - Automated 6.62(H) 1.70 - 6.10 x10(3)/mc L 08/02/2024 4:50 AM [facility] Lymph % 11.9 % 08/02/2024 4:50 AM [facility] Lymph Absolute 1.01 0.90 - 3.20 x10(3)/mc L 08/02/2024 4:50 AM [facility] Monocyte % 8.2 % 08/02/2024 4:50 AM [facility] Monocyte Absolute 0.70 0.30 - 0.90 x10(3)/mc L 08/02/2024 4:50 AM [facility] Eos % 1.4 % 08/02/2024 4:50 AM [facility] Eos Absolute 0.12 0.00 - 0.40 x10(3)/mc L 08/02/2024 4:50 AM [facility] Basophil % 0.4 % 08/02/2024 4:50 AM [facility] Baso Absolute <0.04 0.00 - 0.10 x10(3)/mc L 08/02/2024 4:50 AM [facility] Immature Gran % 0.4 % 4:50 AM [facility] Immature Gran Absolute <0.04 0.00 - 0.04 x10(3)/mc L 08/02/2024 4:50 AM [facility] Blood VENOUS BLOOD SPECIMEN / Unknown Venipuncture / Unknown 08/02/2024 4:20 AM EST 08/02/2024 4:37 AM EST Bridgette Stauffer MD HEMATOLOGY ORDERABLE S [facility] [place] [address] * Magnesium (08/02/2024 4:20 AM EST) Magnesium 0.79 0.69 - 1.07 mMol/L 08/02/2024 5:06 AM [facility] Blood VENOUS BLOOD SPECIMEN / Unknown Venipuncture / Unknown 08/02/2024 4:20 AM EST 08/02/2024 4:37 AM EST Bridgette Stauffer MD CHEMISTRY ORDERABLES [facility] [place] [address] * (ABNORMAL) Basic Metabolic Panel (08/02/2024 4:20 AM EST) Glucose 110 65 - 199 mg/dL 08/02/2024 5:06 AM [facility] Comment:Glucose Concentratio n >=200 mg/dL plus symptoms is consistent with Diabetes Mellitus. Blood Urea Nitrogen 12 10 - 20 mg/dL 08/02/2024 5:06 AM [facility] Creatinine 0.90 0.80 - 1.50 mg/dL 08/02/2024 5:06 AM [facility] Sodium 139 135 - 145 mMol/L 08/02/2024 5:06 AM [facility] Potassium 4.0 3.5 - 5.0 mMol/L 08/02/2024 5:06 AM [facility] Chloride 108(H) 98 - 107 mMol/L 08/02/2024 5:06 AM [facility] Carbon Dioxide 23 22 - 31 mMol/L 08/02/2024 5:06 AM [facility] Anion Gap 8 5 - 15 mMol/L 08/02/2024 5:06 AM [facility] Calcium 8.1(L) 8.5 - 10.5 mg/dL 08/02/2024 5:06 AM [facility] Est Glomerular Filtration Rate - Male 91 mL/min/1. 73 m?? 08/02/2024 5:06 AM [facility] Comment: This patient's estimated [...] Stauffer MD CHEMISTRY ORDERABLES Performing Organization Address [facility] Co de Phone Number [facility] [place] [address] * Potassium (08/01/2024 8:39 PM EST) Potassium 4.0 3.5 - 5.0 mMol/L 08/01/2024 9:21 PM EST [facility] Blood VENOUS BLOOD SPECIMEN / Unknown Venipuncture / Unknown 08/01/2024 8:39 PM EST 08/01/2024 8:51 PM EST Jay Silverio MD CHEMISTRY ORDERABL ES Performing Organization Address [facility] Phone Number [facility] [place] [address] * POC, GLUCOSE (08/01/2024 8:35 PM EST) Glucometer, POC 112 65 - 199 mg/dL 08/01/2024 8:36 PM EST [facility] Comment:Supplemental ranges: <140 mg/dL before meals <180 mg/dL all other times of the day. Blood CAPILLARY BLOOD / Unknown 08/01/2024 8:35 PM EST 08/01/2024 8:36 PM EST Krystal Parker MD POINT OF CARE TEST O RDERABLES Performing Organization Address [facility] Co de Phone Number [facility] [place] [address] * POC, GLUCOSE (08/01/2024 4:55 PM EST) Glucometer, POC 99 65 - 199 mg/dL 08/01/2024 4:56 PM EST [facility] Comment:Supplemental ranges: <140 mg/dL before meals <180 mg/dL all other times of the day. Blood CAPILLARY BLOOD / Unknown 08/01/2024 4:55 PM EST 08/01/2024 4:56 PM EST Krystal Parker MD POINT OF CARE TEST O JOSH Performing Organization Address [facility] Co de Phone Number [facility] [place] [address] * POC, GLUCOSE (08/01/2024 12:42 PM EST) Glucometer, POC 130 65 - 199 mg/dL 08/01/2024 12:43 PM EST [facility] Comment:Supplemental ranges: <140 mg/dL before meals <180 mg/dL all other times of the day. Blood CAPILLARY BLOOD / Unknown 08/01/2024 12:42 PM EST 08/01/2024 12:43 PM EST Krystal Parker MD POINT OF CARE TEST O JOSH Performing Organization Address [facility] Co de Phone Number [facility] [place] [address] * (ABNORMAL) Cooximetry, POC (08/01/2024 10:45 AM EST) pO2, Coox 32 mmHg 08/01/2024 10:48 AM [facility] Hemoglobin, Coox 12.9(L) 13.7 - 16.5 g/dL 08/01/2024 10:48 AM EST [facility] Oxyhemoglobin, Coox 66.7 % 08/01/2024 10:48 AM [facility] Carboxyhemoglo bin, Coox 1.1 % 08/01/2024 10:48 AM [facility] Comment: Nonsmokers: 0.5-1.5% COHB ?? Smokers: Variable ??but usually less than 10% ?? Toxic: 20-30% COHB ?? Lethal: Greater than 60% COHB Methemoglobin, Coox 0.3 <=1.5 % 08/01/2024 10:48 AM EST [facility] Blood (Mixed Venous) 08/01/2024 10:45 AM EST 08/01/2024 10:48 AM EST Krystal Parker MD POINT OF CARE TEST O RDERABLES Performing Organization Address [facility]/ZIP Co de Phone Number [facility] [place] [address] * Potassium (08/01/2024 8:20 AM EST) Potassium 4.0 3.5 - 5.0 mMol/L 08/01/2024 10:17 AM EST [facility] Blood ARTERIAL BLOOD / Unknown Venipuncture / Unknown 08/01/2024 8:20 AM EST 08/01/2024 8:30 AM EST Jay Silverio MD CHEMISTRY ORDERABL ES Performing Organization Address [facility] Co de Phone Number [facility] [place] [address] * POC, GLUCOSE (08/01/2024 7:44 AM EST) Glucometer, POC 86 65 - 199 mg/dL 08/01/2024 7:44 AM EST [facility] Comment:Supplemental ranges: <140 mg/dL before meals <180 mg/dL all other times of the day. Blood CAPILLARY BLOOD / Unknown 08/01/2024 7:44 AM EST 08/01/2024 7:44 AM EST Krystal Parker MD POINT OF CARE TEST O RDERABLES Performing Organization Address [facility]/ZIP Co de Phone Number [facility] [place] [address] * (ABNORMAL) CBC (with Diff) (08/01/2024 4:18 AM EST) White Blood Cell 8.51 4.00 - 9.50 x10(3)/mc L 08/01/2024 4:53 AM EST [facility] Red Blood Cell 4.12(L) 4.58 - 5.54 x10(6)/mc L 08/01/2024 4:53 AM [facility] Hemoglobin 11.2(L) 13.7 - 16.5 g/dL 08/01/2024 4:53 AM [facility] Hematocrit 33.8(L) 40.5 - 48.5 % 08/01/2024 4:53 AM [facility] Mean Cell Volume 82.0(L) 82.9 - 93.1 fL 08/01/2024 4:53 AM [facility] Mean Cell Hemoglobin 27.2(L) 27.5 - 32.1 pg 08/01/2024 4:53 AM [facility] Mean Cell Hemoglobin Concentration 33.1 32.0 - 35.7 g/dL 08/01/2024 4:53 AM [facility] Platelet 94(L) 145 - 357 x10(3)/mc L 08/01/2024 4:53 AM [facility] Mean Platelet Volume 10.9 7.6 - 12.9 fL 08/01/2024 4:53 AM [facility] RDW Standard Deviation 44.2 36.0 - 45.0 fL 08/01/2024 4:53 AM [facility] RDW coefficient of variation 14.7(H) 11.4 - 13.8 % 08/01/2024 4:53 AM [facility] NRBC% auto 0.0 % 08/01/2024 4:53 AM [facility] NRBC Absolute <0.01 <0.01 x10(3)/mc L 08/01/2024 4:53 AM [facility] Neutrophil % 82.7 % 08/01/2024 4:53 AM [facility] Neutrophil Absolute (ANC) - Automated 7.04(H) 1.70 - 6.10 x10(3)/mc L 08/01/2024 4:53 AM [facility] Lymph % 8.6 % 08/01/2024 4:53 AM [facility] Lymph Absolute 0.73(L) 0.90 - 3.20 x10(3)/mc L 08/01/2024 4:53 AM [facility] Monocyte % 7.6 % 08/01/2024 4:53 AM [facility] Monocyte Absolute 0.65 0.30 - 0.90 x10(3)/mc L 08/01/2024 4:53 AM [facility] Eos % 0.5 % 08/01/2024 4:53 AM [facility] Eos Absolute 0.04 0.00 - 0.40 x10(3)/mc L 08/01/2024 4:53 AM [facility] Basophil % 0.2 % 08/01/2024 4:53 AM [facility] Baso Absolute <0.04 0.00 - 0.10 x10(3)/mc L 08/01/2024 4:53 AM [facility] Immature Gran % 0.4 % 4:53 AM [facility] Immature Gran Absolute <0.04 0.00 - 0.04 x10(3)/mc L 08/01/2024 4:53 AM [facility] Blood VENOUS BLOOD SPECIMEN / Unknown Venipuncture / Unknown 08/01/2024 4:18 AM EST 08/01/2024 4:29 AM EST Bridgette Stauffer MD HEMATOLOGY ORDERABLE [facility] [place] [address] * Magnesium (08/01/2024 4:18 AM EST) Magnesium 0.74 0.69 - 1.07 mMol/L 08/01/2024 5:00 AM [facility] Blood VENOUS BLOOD SPECIMEN / Unknown Venipuncture / Unknown 08/01/2024 4:18 AM EST 08/01/2024 4:29 AM EST Bridgette Stauffer MD CHEMISTRY ORDERABLES [facility] [place] [address] * (ABNORMAL) Basic Metabolic Panel (08/01/2024 4:18 AM EST) Glucose 107 65 - 199 mg/dL 08/01/2024 5:00 AM [facility] Comment:Glucose Concentratio n >=200 mg/dL plus symptoms is consistent with Diabetes Mellitus. Blood Urea Nitrogen 8(L) 10 - 20 mg/dL 08/01/2024 5:00 AM [facility] Creatinine 0.82 0.80 - 1.50 mg/dL 08/01/2024 5:00 AM [facility] Sodium 137 135 - 145 mMol/L 08/01/2024 5:00 AM [facility] Potassium 3.9 3.5 - 5.0 mMol/L 08/01/2024 5:00 AM [facility] Chloride 108(H) 98 - 107 mMol/L 08/01/2024 5:00 AM [facility] Carbon Dioxide 21(L) 22 - 31 mMol/L 08/01/2024 5:00 AM [facility] Anion Gap 8 5 - 15 mMol/L 08/01/2024 5:00 AM [facility] Calcium 7.7(L) 8.5 - 10.5 mg/dL 08/01/2024 5:00 AM [facility] Est Glomerular Filtration Rate - Male 93 mL/min/1. 73 m?? 08/01/2024 5:00 AM [facility] Comment: This patient's estimated [...] Stauffer MD CHEMISTRY ORDERABLES Performing Organization Address [facility] Co de Phone Number [facility] [place] [place] [address] * POC, GLUCOSE (07/31/2024 8:41 PM EST) [facility] Signature Glucometer, POC 73 65 - 199 mg/dL 07/31/2024 8:41 PM EST [facility] Comment:Supplemental ranges: <140 mg/dL before meals <180 mg/dL all other times of the day. Blood CAPILLARY BLOOD / Unknown 07/31/2024 8:41 PM EST 07/31/2024 8:41 PM EST Krystal Parker MD POINT OF CARE TEST O RDERABLES Performing Organization Address [facility] Co de Phone Number [facility] [place] [place] [address] * CARDIAC CATHETERIZATION (07/31/2024 5:53 PM EST) Anatomical Region Laterality Modality Other Narrative 08/01/2024 12:37 PM EST ?[facility] ? Cardiac Catheterization/Intervention Report ? Patient Name: Korey Montoya. ? Procedure Date: 07/31/2024 ? A #: [id number] ? Primary Physician: Janelle, Maldonado T ? Case #: [id number] ? File Name: [id number] ? Catheterization Order Number: [id number] ? [facility] ? Final Report [place], [place] ? Patient Name: ? Korey P. Montoya ?ID#: ?[id number] ? : ?1950 ? Procedure Date: ? July 31, 2024 ?Case #: ? [id number] ? Room: ? 1 ? Case Physician: [...] ? Comments: ?Impella removed from the right COMPUTER SYSTEMS SOFTWARE ENGINEER with deployment of Perclose and ?Angioseal. [...] Procedure Note Maldonado Luis MD - 08/01/2024 [facility] Cardiac Catheterization/Intervention Report Patient Name: Korey MontoyaToby Procedure Date: 07/31/2024 A #: [id number] Primary Physician: Maldonado Luis Case #: [id number] File Name: [id number] Catheterization Order Number: [id number] [facility] FinalReport [place], [place] Patient Name: Korey Montoya ID#:[id number] :1950 Procedure Date: July 31, 2024 Case [...] designated as ASA Class IV. The [facility] clinical frailtyscale is 4: Vulnerable. Diagnostic Tests: [...] procedures. Comments: Impella removed from the right COMPUTER SYSTEMS SOFTWARE ENGINEER with deployment of Perclose and Angioseal. [...] * POC, GLUCOSE (07/31/2024 11:04 AM EST) [facility] Glucometer, POC 82 65 - 199 mg/dL 07/31/2024 11:04 AM EST [facility] Comment:Supplemental ranges: <140 mg/dL before meals <180 mg/dL all other times of the day. Blood CAPILLARY BLOOD / Unknown 07/31/2024 11:04 AM EST 07/31/2024 11:04 AM EST Krystal Parker MD POINT OF CARE TEST O RDERABLES [facility] [place] [place] [address] * (ABNORMAL) Blood Gas, Arterial POC (07/31/2024 8:29 AM EST) [facility] pH, Arterial 7.48(H) 7.35 - 7.45 07/31/2024 8:30 AM EST [facility] PCO2, Arterial 29(L) 35 - 45 mmHg 07/31/2024 8:30 AM EST [facility] PO2, Arterial 71(L) 85 - 104 mmHg 07/31/2024 8:30 AM EST [facility] Bicarbonate, Arterial 20.6 20.0 - 26.0 mmol/L 07/31/2024 8:30 AM EST [facility] Base Excess, Arterial -3.0 -3.0 - 3.0 mmol/L 07/31/2024 8:30 AM [facility] Hemoglobin, Arterial 12.3(L) 13.7 - 16.5 g/dL 07/31/2024 8:30 AM [facility] Oxyhemoglobin, Arterial 94.4 94.0 - 97.0 % 07/31/2024 8:30 AM [facility] Carboxyhemoglobin , Arterial 0.7 % 07/31/2024 8:30 AM [facility] Comment: Nonsmokers: 0.5-1.5% COHB ?? Smokers: Variable ??but usually less than 10% ?? Toxic: 20-30% COHB ?? Lethal: Greater than 60% COHB Methemoglobin, Arterial 0.3 <=1.5 % 07/31/2024 8:30 AM [facility] Sodium, Arterial 138 135 - 145 mmol/L 07/31/2024 8:30 AM [facility] Potassium, Arterial 3.5 3.5 - 5.0 mmol/L 07/31/2024 8:30 AM [facility] Chloride, Arterial 109(H) 98 - 107 mmol/L 07/31/2024 8:30 AM [facility] Lactate, Arterial 0.8 0.5 - 2.2 mmol/L 07/31/2024 8:30 AM [facility] Fraction of Inspired Oxygen 21 % 07/31/2024 8:30 AM [facility] PF Ratio 338 Ratio 07/31/2024 8:30 AM [facility] Comment:PF ratio calculated using the non-temperature corrected pO2 result. IONIZED CALCIUM, ARTERIAL 1.08(L) 1.15 - 1.33 mmol/L 07/31/2024 8:30 AM [facility] Glucose, Arterial 86 65 - 199 mg/dL 07/31/2024 8:30 AM [facility] Comment:Glucose Concentratio n >=200 mg/dL plus symptoms is consistent with Diabetes Mellitus. Blood ARTERIAL BLOOD / Unknown 07/31/2024 8:29 AM EST 07/31/2024 8:30 AM EST Krystal Parker MD POINT OF CARE TEST O JOSH Performing Organization Address City/[facility]/ZIP Co de Phone Number [facility] [place] [place] [address] * POC, GLUCOSE (07/31/2024 7:47 AM EST) Pathologist [facility] Glucometer, POC 82 65 - 199 mg/dL 07/31/2024 7:53 AM EST [facility] Comment:Supplemental ranges: <140 mg/dL before meals <180 mg/dL all other times of the day. Blood CAPILLARY BLOOD / Unknown 07/31/2024 7:47 AM EST 07/31/2024 7:53 AM EST Krystal Parker MD POINT OF CARE TEST O JOSH Performing Organization Address [facility] Co de Phone Number [facility] [place] [address] * (ABNORMAL) CBC (with Diff) (07/31/2024 1:08 AM EST) [facility] White Blood Cell 10.25(H) 4.00 - 9.50 x10(3)/mc L 07/31/2024 1:28 AM [facility] Red Blood Cell 4.13(L) 4.58 - 5.54 x10(6)/mc L 07/31/2024 1:28 AM [facility] Hemoglobin 11.2(L) 13.7 - 16.5 g/dL 07/31/2024 1:28 AM [facility] Hematocrit 33.9(L) 40.5 - 48.5 % 07/31/2024 1:28 AM [facility] Mean Cell Volume 82.1(L) 82.9 - 93.1 fL 07/31/2024 1:28 AM [facility] Mean Cell Hemoglobin 27.1(L) 27.5 - 32.1 pg 07/31/2024 1:28 AM [facility] Mean Cell Hemoglobin Concentration 33.0 32.0 - 35.7 g/dL 07/31/2024 1:28 AM [facility] Platelet 109(L) 145 - 357 x10(3)/mc L 07/31/2024 1:28 AM [facility] Mean Platelet Volume 10.4 7.6 - 12.9 fL 07/31/2024 1:28 AM [facility] RDW Standard Deviation 45.1(H) 36.0 - 45.0 fL 07/31/2024 1:28 AM [facility] RDW coefficient of variation 15.1(H) 11.4 - 13.8 % 07/31/2024 1:28 AM [facility] NRBC% auto 0.0 % 07/31/2024 1:28 AM [facility] NRBC Absolute <0.01 <0.01 x10(3)/mc L 07/31/2024 1:28 AM [facility] Neutrophil % 79.7 % 07/31/2024 1:28 AM [facility] Neutrophil Absolute (ANC) - Automated 8.17(H) 1.70 - 6.10 x10(3)/mc L 07/31/2024 1:28 AM [facility] Lymph % 12.8 % 07/31/2024 1:28 AM [facility] Lymph Absolute 1.31 0.90 - 3.20 x10(3)/mc L 07/31/2024 1:28 AM [facility] Monocyte % 6.9 % 07/31/2024 1:28 AM [facility] Monocyte Absolute 0.71 0.30 - 0.90 x10(3)/mc L 07/31/2024 1:28 AM [facility] Eos % 0.1 % 07/31/2024 1:28 AM [facility] Eos Absolute <0.04 0.00 - 0.40 x10(3)/mc L 07/31/2024 1:28 AM EST [facility] Basophil % 0.3 % 07/31/2024 1:28 AM EST [facility] Baso Absolute <0.04 0.00 - 0.10 x10(3)/mc L 07/31/2024 1:28 AM EST [facility] Immature Gran % 0.2 % 1:28 AM EST [facility] Immature Gran Absolute <0.04 0.00 - 0.04 x10(3)/mc L 07/31/2024 1:28 AM EST [facility] Blood VENOUS BLOOD SPECIMEN / Unknown Venipuncture / Unknown 07/31/2024 1:08 AM EST 07/31/2024 1:18 AM EST Bridgette Stauffer MD HEMATOLOGY ORDERABLE S Performing Organization Address City/[facility]/ZIP Co de Phone Number [facility] [place] [place] [address] * Magnesium (07/31/2024 1:08 AM EST) Magnesium 0.89 0.69 - 1.07 mMol/L 07/31/2024 1:46 AM EST [facility] Blood VENOUS BLOOD SPECIMEN / Unknown Venipuncture / Unknown 07/31/2024 1:08 AM EST 07/31/2024 1:18 AM EST Bridgette Stauffer MD CHEMISTRY ORDERABLES [facility] [place] [place] [address] * (ABNORMAL) Basic Metabolic Panel (07/31/2024 1:08 AM EST) Glucose 97 65 - 199 mg/dL 07/31/2024 1:46 AM EST [facility] Comment:Glucose Concentratio n >=200 mg/dL plus symptoms is consistent with Diabetes Mellitus. Blood Urea Nitrogen 11 10 - 20 mg/dL 07/31/2024 1:46 AM [facility] Creatinine 0.96 0.80 - 1.50 mg/dL 07/31/2024 1:46 AM EST [facility] Sodium 140 135 - 145 mMol/L 07/31/2024 1:46 AM [facility] Potassium 4.1 3.5 - 5.0 mMol/L 07/31/2024 1:46 AM EST [facility] Chloride 110(H) 98 - 107 mMol/L 07/31/2024 1:46 AM [facility] Carbon Dioxide 24 22 - 31 mMol/L 07/31/2024 1:46 AM [facility] Anion Gap 6 5 - 15 mMol/L 07/31/2024 1:46 AM [facility] Calcium 7.7(L) 8.5 - 10.5 mg/dL 07/31/2024 1:46 AM [facility] Est Glomerular Filtration Rate - Male 84 mL/min/1. 73 m?? 07/31/2024 1:46 AM [facility] Comment: This patient's estimated [...] AM EST Bridgette Stauffer MD CHEMISTRY ORDERABLES [facility] [place] [place] [address] * (ABNORMAL) Hepatic Function Panel (07/31/2024 1:08 AM EST) Albumin 3.1(L) 3.2 - 5.2 g/dL 07/31/2024 1:46 AM [facility] Aspartate Aminotransferase 192(H) <=39 unit/L 07/31/2024 1:46 AM [facility] Alanine Aminotransferase 59(H) 0 - 55 unit/L 07/31/2024 1:46 AM [facility] Alkaline Phosphatase 46 40 - 130 unit/L 07/31/2024 1:46 AM [facility] Bilirubin, Total 0.4 <=1.3 mg/dL 07/31/2024 1:46 AM [facility] Bilirubin, Direct <0.2 0.0 - 0.3 mg/dL 07/31/2024 1:46 AM [facility] Protein, Total 5.0(L) 6.1 - 8.0 g/dL 07/31/2024 1:46 AM [facility] Blood VENOUS BLOOD SPECIMEN / Unknown Venipuncture / Unknown 07/31/2024 1:08 AM EST 07/31/2024 1:18 AM EST Krystal Parker MD CHEMISTRY ORDERABLES [facility] [place] [address] * POC, GLUCOSE (07/30/2024 8:03 PM EST) Glucometer, POC 86 65 - 199 mg/dL 07/30/2024 8:03 PM [facility] Comment:Supplemental ranges: <140 mg/dL before meals <180 mg/dL all other times of the day. Blood CAPILLARY BLOOD / Unknown 07/30/2024 8:03 PM EST 07/30/2024 8:03 PM EST Krystal Parker MD POINT OF CARE TEST O RDERABLES Performing Organization Address City/[facility]/ZIP Co de Phone Number [facility] [place] [address] * Potassium (07/30/2024 8:03 PM EST) Potassium 3.8 3.5 - 5.0 mMol/L 07/30/2024 9:13 PM EST [facility] Blood VENOUS BLOOD SPECIMEN / Unknown Venipuncture / Unknown 07/30/2024 8:03 PM EST 07/30/2024 8:22 PM EST Jay Silverio MD CHEMISTRY ORDERABL ES Performing Organization Address [facility] Co de Phone Number [facility] [place] [address] * POC, GLUCOSE (07/30/2024 6:23 PM EST) Glucometer, POC 93 65 - 199 mg/dL 07/30/2024 6:24 PM EST [facility] Comment:Supplemental ranges: <140 mg/dL before meals <180 mg/dL all other times of the day. Blood CAPILLARY BLOOD / Unknown 07/30/2024 6:23 PM EST 07/30/2024 6:24 PM EST Krystal Parker MD POINT OF CARE TEST O RDERABLES Performing Organization Address [facility]/ZIP Co de Phone Number [facility] [place] [address] * POC, GLUCOSE (07/30/2024 5:08 PM EST) Glucometer, POC 78 65 - 199 mg/dL 07/30/2024 5:08 PM EST [facility] Comment:Supplemental ranges: <140 mg/dL before meals <180 mg/dL all other times of the day. Blood CAPILLARY BLOOD / Unknown 07/30/2024 5:08 PM EST 07/30/2024 5:08 PM EST Krystal Parker MD POINT OF CARE TEST O RDERABLES Performing Organization Address [facility]/ZIP Co de Phone Number [facility] [place] [address] * (ABNORMAL) Phosphorus (07/30/2024 3:08 PM EST) Phosphorus 2.1(L) 2.5 - 4.5 mg/dL 07/30/2024 3:58 PM EST [facility] Blood VENOUS BLOOD SPECIMEN / Unknown Venipuncture / Unknown 07/30/2024 3:08 PM EST 07/30/2024 3:12 PM EST Jay Silverio MD CHEMISTRY ORDERABL ES Performing Organization Address [facility] Co de Phone Number [facility] [place] [address] * Magnesium (07/30/2024 3:08 PM EST) Magnesium 0.90 0.69 - 1.07 mMol/L 07/30/2024 3:58 PM EST [facility] Blood VENOUS BLOOD SPECIMEN / Unknown Venipuncture / Unknown 07/30/2024 3:08 PM EST 07/30/2024 3:12 PM EST Jay Silverio MD CHEMISTRY ORDERABL ES Performing Organization Address City/[facility]/ZIP Co de Phone Number [facility] [place] [place] [address] * (ABNORMAL) Basic Metabolic Panel (07/30/2024 3:08 PM EST) Glucose 105 65 - 199 mg/dL 07/30/2024 4:17 PM EST [facility] Comment:Glucose Concentratio n >=200 mg/dL plus symptoms is consistent with Diabetes Mellitus. Blood Urea Nitrogen 13 10 - 20 mg/dL 07/30/2024 4:17 PM EST [facility] Creatinine 1.01 0.80 - 1.50 mg/dL 07/30/2024 4:17 PM EST [facility] Sodium 141 135 - 145 mMol/L 07/30/2024 4:17 PM EST [facility] Potassium 3.4(L) 3.5 - 5.0 mMol/L 07/30/2024 4:17 PM [facility] Chloride 109(H) 98 - 107 mMol/L 07/30/2024 4:17 PM [facility] Carbon Dioxide 21(L) 22 - 31 mMol/L 07/30/2024 4:17 PM EST [facility] Anion Gap 11 5 - 15 mMol/L 07/30/2024 4:17 PM [facility] Calcium 7.9(L) 8.5 - 10.5 mg/dL 07/30/2024 4:17 PM [facility] Est Glomerular Filtration Rate - Male 79 mL/min/1. 73 m?? 07/30/2024 4:17 PM [facility] Comment: This patient's estimated [...] CHEMISTRY ORDERABL ES [facility] [place] [address] * ECHO LMTD W CONTRAST W LMTD SPEC DOPP COLOR DOPP (07/30/2024 11:42 AM EST) Anatomical Region Laterality Modality Cardiac Other 07/30/2024 10:2 2 AM EST Narrative 07/30/2024 12:34 PM EST [address] [place] [address] ? Echocardiogram Report Name: KOREY MONTOYA ? Study Date: 07/30/2024 10:22 AMBP: 124/66 mmHg : 1950 ? Height: 168 cm ? Account: [id number] Age: 74 yrs ? Weight: 65 kg Gender: Male ?BSA: 1.7 m2 Ordering Physician: Jay Silverio MD Referring Physician: CHAPARRO FERRERA Performed By: OMERO Millan Reason For Study: ST elevation myocardial infarction involving left anterior descending (LAD) coronary artery Interpreting Fellow: Ivan Hernandez. Exam Location: [facility]. Interpretation Summary Left ventricle is severely dilated. [...] Compared to the overnight study by the sales operations director fellow the impella position is stable. 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 Procedure Limited - 77987. Image enhancement Definity was used for both [...] Note Kathleen Banda MD - 07/30/2024 [address] [place] [address] Echocardiogram Report Name: KOREY MONTOYA Study Date: 410:22 AMBP: 124/66 mmHg : 1950 Height: 168 cm Account: [id number] Age: 74 yrs Weight: 65 kg Gender: Male BSA: 1.7 m2 Ordering Physician: Jay Silverio MD Referring Physician: CHAPARRO FERRERA Performed By: OMERO Millan Reason For Study: ST elevation myocardial infarction involving leftanterior descending (LAD) coronary artery Interpreting Fellow: Ivan Hernandez. Exam Location: [facility]. Interpretation Summary Left ventricle is severely dilated. [...] Compared to the overnight study by the sales operations director fellow the impella positionis stable. The global left ventricular systolic function has improvedpredominantly via recruitment outside the LAD territory which remains akinetic. Procedure Limited - 65541. Image enhancement Definity was used for both [...] - 199 mg/dL 07/30/2024 11:17 AM EST [facility] Comment:Supplemental ranges: <140 mg/dL before meals <180 mg/dL all other times of the day. Blood CAPILLARY BLOOD / Unknown 07/30/2024 11:17 AM EST 07/30/2024 11:17 AM EST Jay Silverio MD POINT OF CARE TEST ORDERABLES [facility] [place] [address] * (ABNORMAL) Blood Gas, Arterial POC (07/30/2024 8:16 AM EST) pH, Arterial 7.44 7.35 - 7.45 07/30/2024 8:17 AM EST [facility] PCO2, Arterial 29(L) 35 - 45 mmHg 07/30/2024 8:17 AM EST [facility] PO2, Arterial 109(H) 85 - 104 mmHg 07/30/2024 8:17 AM EST [facility] Bicarbonate, Arterial 19.4(L) 20.0 - 26.0 mmol/L 07/30/2024 8:17 AM [facility] Base Excess, Arterial -4.7(L) -3.0 - 3.0 mmol/L 07/30/2024 8:17 AM [facility] Hemoglobin, Arterial 12.2(L) 13.7 - 16.5 g/dL 07/30/2024 8:17 AM [facility] Oxyhemoglobin, Arterial 97.1(H) 94.0 - 97.0 % 07/30/2024 8:17 AM [facility] Carboxyhemoglob in, Arterial 1.0 % 07/30/2024 8:17 AM [facility] Comment: Nonsmokers: 0.5-1.5% COHB ?? Smokers: Variable ??but usually less than 10% ?? Toxic: 20-30% COHB ?? Lethal: Greater than 60% COHB Methemoglobin, Arterial 0.1 <=1.5 % 07/30/2024 8:17 AM [facility] Sodium, Arterial 132(L) 135 - 145 mmol/L 07/30/2024 8:17 AM [facility] Potassium, Arterial 3.9 3.5 - 5.0 mmol/L 07/30/2024 8:17 AM [facility] Chloride, Arterial 105 98 - 107 mmol/L 07/30/2024 8:17 AM [facility] Lactate, Arterial 1.2 0.5 - 2.2 mmol/L 07/30/2024 8:17 AM [facility] Fraction of Inspired Oxygen 21 % 07/30/2024 8:17 AM [facility] PF Ratio 519 Ratio 07/30/2024 8:17 AM [facility] Comment:PF ratio calculated using the non-temperature corrected pO2 result. IONIZED CALCIUM, ARTERIAL 1.15 1.15 - 1.33 mmol/L 07/30/2024 8:17 AM [facility] Blood ARTERIAL BLOOD / Unknown 07/30/2024 8:16 AM EST 07/30/2024 8:17 AM EST Jay Silverio MD POINT OF CARE TEST ORDERABLES Performing Organization Address City/[facility]/ZIP Co de Phone Number [facility] [place] [place] [address] * (ABNORMAL) Troponin - Single (07/30/2024 8:09 [...] [facility] Test Catalog Troponin - [email or web address] Reference: Fourth [place]etop Definition of Myocardial Infarction. Journal of the [place] [employer] 2018;72:5844-5747 Blood VENOUS BLOOD SPECIMEN / Unknown Venipuncture / Unknown 07/30/2024 8:09 AM EST 07/30/2024 8:26 AM EST Jay Silverio MD CHEMISTRY ORDERABL ES Performing Organization Address City/[facility]/ZIP Co de Phone Number [facility] [place] [address] * POC, GLUCOSE (07/30/2024 7:40 AM EST) Pathologist [facility] Glucometer, POC 111 65 - 199 mg/dL 07/30/2024 7:40 AM EST [facility] Comment:Supplemental ranges: <140 mg/dL before meals <180 mg/dL all other times of the day. Blood CAPILLARY BLOOD / Unknown 07/30/2024 7:40 AM EST 07/30/2024 7:40 AM EST Jay Silverio MD POINT OF CARE TEST ORDERABLES [facility] [place] [place] [address] * (ABNORMAL) CBC (with Diff) (07/30/2024 2:11 AM EST) [facility] White Blood Cell 11.25(H) 4.00 - 9.50 x10(3)/mc L 07/30/2024 2:33 AM [facility] Red Blood Cell 4.50(L) 4.58 - 5.54 x10(6)/mc L 07/30/2024 2:33 AM [facility] Hemoglobin 12.2(L) 13.7 - 16.5 g/dL 07/30/2024 2:33 AM [facility] Hematocrit 37.1(L) 40.5 - 48.5 % 07/30/2024 2:33 AM [facility] Mean Cell Volume 82.4(L) 82.9 - 93.1 fL 07/30/2024 2:33 AM [facility] Mean Cell Hemoglobin 27.1(L) 27.5 - 32.1 pg 07/30/2024 2:33 AM [facility] Mean Cell Hemoglobin Concentration 32.9 32.0 - 35.7 g/dL 07/30/2024 2:33 AM [facility] Platelet 166 145 - 357 x10(3)/mc L 07/30/2024 2:33 AM [facility] Mean Platelet Volume 10.6 7.6 - 12.9 fL 07/30/2024 2:33 AM [facility] RDW Standard Deviation 44.6 36.0 - 45.0 fL 07/30/2024 2:33 AM [facility] RDW coefficient of variation 14.6(H) 11.4 - 13.8 % 07/30/2024 2:33 AM [facility] NRBC% auto 0.0 % 07/30/2024 2:33 AM [facility] NRBC Absolute <0.01 <0.01 x10(3)/mc L 07/30/2024 2:33 AM [facility] Neutrophil % 88.9 % 07/30/2024 2:33 AM [facility] Neutrophil Absolute (ANC) - Automated 10.00(H) 1.70 - 6.10 x10(3)/mc L 07/30/2024 2:33 AM [facility] Lymph % 5.1 % 07/30/2024 2:33 AM [facility] Lymph Absolute 0.57(L) 0.90 - 3.20 x10(3)/mc L 07/30/2024 2:33 AM [facility] Monocyte % 5.4 % 07/30/2024 2:33 AM [facility] Monocyte Absolute 0.61 0.30 - 0.90 x10(3)/mc L 07/30/2024 2:33 AM [facility] Eos % 0.0 % 07/30/2024 2:33 AM [facility] Eos Absolute <0.04 0.00 - 0.40 x10(3)/mc L 07/30/2024 2:33 AM [facility] Basophil % 0.2 % 07/30/2024 2:33 AM [facility] Baso Absolute <0.04 0.00 - 0.10 x10(3)/mc L 07/30/2024 2:33 AM [facility] Immature Gran % 0.4 % 2:33 AM EST [facility] Immature Gran Absolute 0.05(H) 0.00 - 0.04 x10(3)/mc L 07/30/2024 2:33 AM [facility] Blood VENOUS BLOOD SPECIMEN / Unknown Venipuncture / Unknown 07/30/2024 2:11 AM EST 07/30/2024 2:22 AM EST Bridgette Stauffer MD HEMATOLOGY ORDERABLE S Performing Organization Address [facility]/ZIP Co de Phone Number [facility] [place] [place] [address] * Magnesium (07/30/2024 2:11 AM EST) Pathologist [facility] Magnesium 1.01 0.69 - 1.07 mMol/L 07/30/2024 2:51 AM [facility] Blood VENOUS BLOOD SPECIMEN / Unknown Venipuncture / Unknown 07/30/2024 2:11 AM EST 07/30/2024 2:22 AM EST Bridgette Stauffer MD CHEMISTRY ORDERABLES Performing Organization Address City/[facility] Co de Phone Number [facility] [place] [address] * (ABNORMAL) Basic Metabolic Panel (07/30/2024 2:11 AM EST) Pathologist [facility] Glucose 190 65 - 199 mg/dL 07/30/2024 2:51 AM [facility] Comment:Glucose Concentratio n >=200 mg/dL plus symptoms is consistent with Diabetes Mellitus. Blood Urea Nitrogen 15 10 - 20 mg/dL 07/30/2024 2:51 AM [facility] Creatinine 0.88 0.80 - 1.50 mg/dL 07/30/2024 2:51 AM [facility] Sodium 135 135 - 145 mMol/L 07/30/2024 2:51 AM [facility] Potassium 4.9 3.5 - 5.0 mMol/L 07/30/2024 2:51 AM EST [facility] Chloride 105 98 - 107 mMol/L 07/30/2024 2:51 AM [facility] Carbon Dioxide 19(L) 22 - 31 mMol/L 07/30/2024 2:51 AM [facility] Anion Gap 11 5 - 15 mMol/L 07/30/2024 2:51 AM [facility] Calcium 7.7(L) 8.5 - 10.5 mg/dL 07/30/2024 2:51 AM EST [facility] Est Glomerular Filtration Rate - Male 91 mL/min/1. 73 m?? 07/30/2024 2:51 AM [facility] Comment: This patient's estimated [...] AM EST Bridgette Stauffer MD CHEMISTRY ORDERABLES [facility] [place] [place] [address] * (ABNORMAL) Cooximetry, POC (07/30/2024 1:00 AM EST) pO2, Coox 28 mmHg 07/30/2024 1:03 AM [facility] Hemoglobin, Coox 12.7(L) 13.7 - 16.5 g/dL 07/30/2024 1:03 AM [facility] Oxyhemoglobin, Coox 54.9 % 07/30/2024 1:03 AM [facility] Carboxyhemoglo bin, Coox 1.0 % 07/30/2024 1:03 AM [facility] Comment: Nonsmokers: 0.5-1.5% COHB ?? Smokers: Variable ??but usually less than 10% ?? Toxic: 20-30% COHB ?? Lethal: Greater than 60% COHB Methemoglobin, Coox 0.0 <=1.5 % 07/30/2024 1:03 AM [facility] Blood (Mixed Venous) 07/30/2024 1:00 AM EST 07/30/2024 1:03 AM EST Jay Silverio MD POINT OF CARE TEST ORDERABLES Performing Organization Address City/State/[facility] Co de Phone Number [facility] [place] [place] [address] * (ABNORMAL) Blood Gas, Arterial POC (07/30/2024 12:57 AM EST) pH, Arterial 7.38 7.35 - 7.45 07/30/2024 12:58 AM [facility] PCO2, Arterial 34(L) 35 - 45 mmHg 07/30/2024 12:58 AM [facility] PO2, Arterial 141(H) 85 - 104 mmHg 07/30/2024 12:58 AM [facility] Bicarbonate, Arterial 19.5(L) 20.0 - 26.0 mmol/L 07/30/2024 12:58 AM [facility] Base Excess, Arterial -5.6(L) -3.0 - 3.0 mmol/L 07/30/2024 12:58 AM [facility] Hemoglobin, Arterial 13.0(L) 13.7 - 16.5 g/dL 07/30/2024 12:58 AM [facility] Oxyhemoglobin, Arterial 98.4(H) 94.0 - 97.0 % 07/30/2024 12:58 AM [facility] Carboxyhemoglobin , Arterial 0.4 % 07/30/2024 12:58 AM [facility] Comment: Nonsmokers: 0.5-1.5% COHB ?? Smokers: Variable ??but usually less than 10% ?? Toxic: 20-30% COHB ?? Lethal: Greater than 60% COHB Methemoglobin, Arterial 0.1 <=1.5 % 07/30/2024 12:58 AM [facility] Sodium, Arterial 130(L) 135 - 145 mmol/L 07/30/2024 12:58 AM [facility] Potassium, Arterial 4.5 3.5 - 5.0 mmol/L 07/30/2024 12:58 AM [facility] Chloride, Arterial 104 98 - 107 mmol/L 07/30/2024 12:58 AM [facility] Lactate, Arterial 1.3 0.5 - 2.2 mmol/L 07/30/2024 12:58 AM [facility] Flow Rate 2.0 L/min 07/30/2024 12:58 AM [facility] IONIZED CALCIUM, ARTERIAL 1.12(L) 1.15 - 1.33 mmol/L 07/30/2024 12:58 AM [facility] Glucose, Arterial 184 65 - 199 mg/dL 07/30/2024 12:58 AM [facility] Comment:Glucose Concentratio n >=200 mg/dL plus symptoms is consistent with Diabetes Mellitus. Blood ARTERIAL BLOOD / Unknown 07/30/2024 12:57 AM EST 07/30/2024 12:58 AM EST Jay Silverio MD POINT OF CARE TEST ORDERABLES [facility] [place] [address] * (ABNORMAL) Troponin - Single (07/29/2024 10:31 PM EST) Troponin-T, High Sensitivity >10,000(H ) <=22 ng/L 07/29/2024 11:03 PM EST [facility] Comment: This [...] [facility] Test Catalog Troponin - [email or web address]/catalogs/[email or web address] Reference: Fourth Whitetop Definition of Myocardial Infarction. Journal of the [place] [employer] 2018;72:8182-0976 Blood VENOUS BLOOD SPECIMEN / Unknown Venipuncture / Unknown 07/29/2024 10:31 PM EST 07/29/2024 10:36 PM EST Yrn Ward MD CHEMISTRY ORDERABL ES [facility] [place] [address] * Potassium (07/29/2024 8:11 PM EST) Potassium 4.1 3.5 - 5.0 mMol/L 07/29/2024 8:52 PM EST [facility] Blood VENOUS BLOOD SPECIMEN / Unknown Venipuncture / Unknown 07/29/2024 8:11 PM EST 07/29/2024 8:16 PM EST Jay Silverio MD CHEMISTRY ORDERABL ES Performing Organization Address City/[facility]/ZIP Co de Phone Number [facility] [place] [address] * (ABNORMAL) Troponin - Single (07/29/2024 8:11 PM EST) Troponin-T, High Sensitivity >10,000(H ) <=22 ng/L 07/29/2024 8:52 PM EST [facility] Comment: This [...] [facility] Test Catalog Troponin - [email or web address]/catalogs/[email or web address] Reference: Fourth Whitetop Definition of Myocardial Infarction. Journal of the [place] [employer] 2018;72:6573-4964 Blood VENOUS BLOOD SPECIMEN / Unknown Venipuncture / Unknown 07/29/2024 8:11 PM EST 07/29/2024 8:16 PM EST Jay Silverio MD CHEMISTRY ORDERABL ES [facility] [place] [address] * (ABNORMAL) Phosphorus (07/29/2024 8:11 PM EST) Phosphorus 2.1(L) 2.5 - 4.5 mg/dL 07/29/2024 8:52 PM EST [facility] Blood VENOUS BLOOD SPECIMEN / Unknown Venipuncture / Unknown 07/29/2024 8:11 PM EST 07/29/2024 8:16 PM EST Jay Silverio MD CHEMISTRY ORDERABL ES Performing Organization Address City/[facility]/ZIP Co de Phone Number [facility] [place] [address] * POC, GLUCOSE (07/29/2024 8:09 PM EST) Glucometer, POC 142 65 - 199 mg/dL 07/29/2024 8:09 PM EST [facility] Comment:Supplemental ranges: <140 mg/dL before meals <180 mg/dL all other times of the day. Blood CAPILLARY BLOOD / Unknown 07/29/2024 8:09 PM EST 07/29/2024 8:09 PM EST Jay Silverio MD POINT OF CARE TEST ORDERABLES Performing Organization Address City/[facility]/ZIP Co de Phone Number [facility] [place] [address] * ABORH RECHECK (07/29/2024 6:43 PM EST) ABORH Recheck AB POSITIVE 07/29/2024 10:13 PM EST [facility] Blood VENOUS BLOOD SPECIMEN / Unknown Venipuncture / Unknown 07/29/2024 6:43 PM EST 07/29/2024 7:15 PM EST Jay Silverio MD BLOOD BANK LAB ORD ERABLES Performing Organization Address City/[facility]/ZIP Co de Phone Number [facility] [place] [place] [address] * POC, GLUCOSE (07/29/2024 5:57 PM EST) Glucometer, POC 166 65 - 199 mg/dL 07/29/2024 5:57 PM EST [facility] Comment:Supplemental ranges: <140 mg/dL before meals <180 mg/dL all other times of the day. Blood CAPILLARY BLOOD / Unknown 07/29/2024 5:57 PM EST 07/29/2024 5:57 PM EST Jay Silverio MD POINT OF CARE TEST ORDERABLES Performing Organization Address City/[facility]/ZIP Co de Phone Number [facility] [place] [address] * Type and screen ([facility]ONG/MAGALIE) (07/29/2024 5:56 PM EST) [facility] ABORH Type AB POSITIVE 07/29/2024 9:44 PM EST [facility] PATIENT HISTORY Not Found 07/29/2024 9:44 PM EST [facility] Expires at [id number] on: 08/01/2024 07/29/2024 9:44 PM EST [facility] ANTIBODY SCREEN AUTOMATED Negative 07/29/2024 9:44 PM EST [facility] T&S only valid at [facility] 07/29/2024 9:44 PM EST [facility] Blood VENOUS BLOOD SPECIMEN / Unknown Venipuncture / Unknown 07/29/2024 5:56 PM EST 07/29/2024 6:07 PM EST Narrative [facility] - 07/29/2024 9:44 PM EST This Type and Screen result is only valid at the [facility] Jay Silevrio MD BLOOD BANK LAB ORD ERABLES Performing Organization Address City/[facility]/ZIP Co de Phone Number [facility] [place] [place] [address] * (ABNORMAL) Troponin - Single (07/29/2024 4:52 PM EST) [facility] Troponin-T, High Sensitivity >10,000(H ) <=22 ng/L 07/29/2024 5:25 PM EST [facility] Comment: This [...] [facility] Test Catalog Troponin - [email or web address]/catalogs/565/[email or web address] Reference: Fourth Whitetop Definition of Myocardial Infarction. Journal of the [place] [employer] 2018;72:6477-0930 Blood VENOUS BLOOD SPECIMEN / Unknown Venipuncture / Unknown 07/29/2024 4:52 PM EST 07/29/2024 4:57 PM EST Jay Silverio MD CHEMISTRY ORDERABL ES Performing Organization Address City/State/[facility] Co de Phone Number [facility] [place] [address] * EKG 12 Lead (07/29/2024 4:21 PM EST) Ventricular rate 72 BPM MUSE SYSTEM Atrial Rate 72 BPM MUSE SYSTEM P-R Interval 168 ms MUSE SYSTEM QRS Duration 82 ms MUSE SYSTEM Q-T Interval 392 ms MUSE SYSTEM QTC Calculated (Bezet) 429 ms MUSE SYSTEM Calculated P [place] 71 degrees MUSE SYSTEM Calculated R [place] 77 degrees MUSE SYSTEM Calculated T [place] 28 degrees MUSE SYSTEM INTERPRETATION Sinus rhythm [...] 7.37 7.35 - 7.45 07/29/2024 4:22 PM [facility] PCO2, Arterial 36 35 - 45 mmHg 07/29/2024 4:22 PM [facility] PO2, Arterial 71(L) 85 - 104 mmHg 07/29/2024 4:22 PM [facility] Bicarbonate, Arterial 20.4 20.0 - 26.0 mmol/L 07/29/2024 4:22 PM [facility] Base Excess, Arterial -4.8(L) -3.0 - 3.0 mmol/L 07/29/2024 4:22 PM [facility] Hemoglobin, Arterial 12.2(L) 13.7 - 16.5 g/dL 07/29/2024 4:22 PM [facility] Oxyhemoglobin, Arterial 93.8(L) 94.0 - 97.0 % 07/29/2024 4:22 PM [facility] Carboxyhemoglobin , Arterial 0.5 % 07/29/2024 4:22 PM [facility] Comment: Nonsmokers: 0.5-1.5% COHB ?? Smokers: Variable ??but usually less than 10% ?? Toxic: 20-30% COHB ?? Lethal: Greater than 60% COHB Methemoglobin, Arterial 0.3 <=1.5 % 07/29/2024 4:22 PM [facility] Sodium, Arterial 134(L) 135 - 145 mmol/L 07/29/2024 4:22 PM [facility] Potassium, Arterial 4.2 3.5 - 5.0 mmol/L 07/29/2024 4:22 PM [facility] Chloride, Arterial 107 98 - 107 mmol/L 07/29/2024 4:22 PM [facility] Lactate, Arterial 1.5 0.5 - 2.2 mmol/L 07/29/2024 4:22 PM [facility] Fraction of Inspired Oxygen 21 % 07/29/2024 4:22 PM [facility] PF Ratio 338 Ratio 07/29/2024 4:22 PM [facility] Comment:PF ratio calculated using the non-temperature corrected pO2 result. IONIZED CALCIUM, ARTERIAL 1.12(L) 1.15 - 1.33 mmol/L 07/29/2024 4:22 PM [facility] Glucose, Arterial 181 65 - 199 mg/dL 07/29/2024 4:22 PM [facility] Comment:Glucose Concentratio n >=200 mg/dL plus symptoms is consistent with Diabetes Mellitus. Blood ARTERIAL BLOOD / Unknown 07/29/2024 4:21 PM EST 07/29/2024 4:22 PM EST Jay Silverio MD POINT OF CARE TEST ORDERABLES Performing Organization Address City/State/ZIP Co wv Phone Number [facility] [place] [address] * POC, GLUCOSE (07/29/2024 4:19 PM EST) [facility] Signature Glucometer, POC 185 65 - 199 mg/dL 07/29/2024 4:19 PM [facility] Comment:Supplemental ranges: <140 mg/dL before meals <180 mg/dL all other times of the day. Blood CAPILLARY BLOOD / Unknown 07/29/2024 4:19 PM EST 07/29/2024 4:19 PM EST Jay Silverio MD POINT OF CARE TEST ORDERABLES [facility] [place] [address] * Blood culture (07/29/2024 4:08 PM EST) Blood Culture No growth at 120 hours 08/03/2024 5:01 PM EST [facility] Blood VENOUS BLOOD SPECIMEN / Unknown Venipuncture / Unknown 07/29/2024 4:08 PM EST 07/29/2024 4:15 PM EST Jay Silverio MD MICROBIOLOGY - BLO OD ORDERABLES Performing Organization Address [facility] Co de Phone Number [facility] [place] [address] * Blood culture (07/29/2024 4:08 PM EST) Blood Culture No growth at 120 hours 08/03/2024 5:01 PM EST [facility] Blood VENOUS BLOOD SPECIMEN / Unknown Venipuncture / Unknown 07/29/2024 4:08 PM EST 07/29/2024 4:26 PM EST Jay Silverio MD MICROBIOLOGY - BLO OD ORDERABLES Performing Organization Address [facility] Co de Phone Number [facility] [place] [address] * XR Chest One View (07/29/2024 2:30 PM EST) WORKSTATION ID [id number] DH RAD Anatomical Region Laterality Modality Chest [...] who have questions please contact the health critical care unit nurse that requested your imaging first. ? Electronically signed by: Chris Candelaria MD, [facility] ([phone]), at 07/29/2024 3:21 PM Narrative 07/29/2024 3:21 [...] patients who have questions please contactthe health critical care unit nurse that requested your imaging first. Electronically signed by: Chris Candelaria MD, [facility]([phone]), at 07/29/2024 3:21 PM Vahe Marvin MD IMG DX ORDERABLES * (ABNORMAL) APTT (07/29/2024 2:03 PM EST) Partial Thromboplastin Time >160(HHH) 25 - 37 sec 07/29/2024 2:56 PM EST [facility] Blood VENOUS BLOOD SPECIMEN / Unknown Venipuncture / Unknown 07/29/2024 2:03 PM EST 07/29/2024 2:13 PM EST Vahe Marvin MD HEMATOLOGY ORDERABLE S Performing Organization Address [facility]/ZIP Co de Phone Number [facility] [place] [address] * (ABNORMAL) Prothrombin Time (07/29/2024 2:03 PM [...] MD HEMATOLOGY ORDERABLE S Performing Organization Address City/[facility]/ZIP Co de Phone Number [facility] [place] [address] * CRP, acute inflammation (07/29/2024 2:03 PM EST) C-Reactive Protein <3.0 <=4.9 mg/L 07/29/2024 2:52 PM EST [facility] Blood VENOUS BLOOD SPECIMEN / Unknown Venipuncture / Unknown 07/29/2024 2:03 PM EST 07/29/2024 2:14 PM EST Vahe Marvin MD CHEMISTRY ORDERABLES [facility] [place] [address] * Lipid Panel (Reflex Direct LDL) (07/29/2024 2:03 PM EST) [facility] Signature Cholesterol, Total 133 mg/dL 07/29/2024 2:52 PM [facility] Comment: Desirable: < 200 mg/dL Borderline High: 200 - 239 mg/dL High: > or = 240 mg/dL Triglyceride 45 mg/dL 07/29/2024 2:52 PM [facility] Comment: Normal: <150 mg/dL Borderline High: 150-199 mg/dL High: 200-499 mg/dL Very High: > or =500 mg/dL HDL Cholesterol 58 mg/dL 2:52 PM [facility] Comment:Males: High Risk: <4 0 mg/dL LDL Cholesterol 64 mg/dL 4 2:52 PM [facility] Comment: Desirable: <100 mg/dL Above Desirable: 100-129 mg/dL Borderline High: 130-159 mg/dL High: 160-189 mg/dL Very High: > or =190 mg/dL Note: LDL calculation updated to the NIH LDL formula as of 04/15/2024 Non-HDL Cholesterol 75 mg/dL 07/29/2024 2:52 PM [facility] Comment: Desirable: <130 mg/dL Above Desirable: 130-159 mg/dL Borderline High: 160-189 mg/dL High: 190-219 mg/dL Very High: > or = 220 mg/dL Blood VENOUS BLOOD SPECIMEN / Unknown Venipuncture / Unknown 07/29/2024 2:03 PM EST 07/29/2024 2:14 PM EST [facility] - 07/29/2024 2:52 PM EST It [...] even lower. ?? ACC/AHA Guidelines (most recently oRlf et al. [facility] 06/15/22): * For [...] Marvin MD CHEMISTRY ORDERABLES Performing Organization Address City/[facility]/ZIP Co de Phone Number [facility] [place] [address] * TSH Strong (07/29/2024 2:03 PM EST) Thyroid Stimulating Hormone 0.70 0.27 - 4.20 mcIU/mL 07/29/2024 2:52 PM EST [facility] Blood VENOUS BLOOD SPECIMEN / Unknown Venipuncture / Unknown 07/29/2024 2:03 PM EST 07/29/2024 2:14 PM EST Vahe Marvin MD CHEMISTRY ORDERABLES Performing Organization Address [facility] Co de Phone Number [facility] [place] [address] * Hemoglobin A1c (07/29/2024 2:03 PM EST) [...] red blood cell turnover may not be call center representative of glycemic control. Reference Interval: 4.3 - 5.6% 5.7 - 6.4%: Consistent with prediabetes >=6.5%: Consistent with diagnosis of diabetes mellitus Estimated Average Glucose 07/29/2024 2:41 PM EST [facility] Comment:Estimated Average Gl ucose not appropriate for patients over 70 years of age. Blood VENOUS BLOOD SPECIMEN / Unknown Venipuncture / Unknown 07/29/2024 2:03 PM EST 07/29/2024 2:14 PM EST [facility] - 07/29/2024 2:41 PM EST Estimated average glucose (eAG) is calculated from the equation described in: Quinten ALVES, Rikki J, [place] R, et al. ??Translating the A1C assay into estimated average glucose values. ??Diabetes Care 2008:31(8):5419-2329. Additional resources are available on the ADA website (diabetes.org). Vahe Marvin MD CHEMISTRY ORDERABLES [facility] [place] [address] * (ABNORMAL) CBC (with Diff) (07/29/2024 2:03 PM EST) White Blood Cell 19.50(H) 4.00 - 9.50 x10(3)/mc L 07/29/2024 2:18 PM EST [facility] Red Blood Cell 4.81 4.58 - 5.54 x10(6)/mc L 07/29/2024 2:18 PM [facility] Hemoglobin 13.1(L) 13.7 - 16.5 g/dL 07/29/2024 2:18 PM [facility] Hematocrit 40.1(L) 40.5 - 48.5 % 07/29/2024 2:18 PM [facility] Mean Cell Volume 83.4 82.9 - 93.1 fL 07/29/2024 2:18 PM [facility] Mean Cell Hemoglobin 27.2(L) 27.5 - 32.1 pg 07/29/2024 2:18 PM [facility] Mean Cell Hemoglobin Concentration 32.7 32.0 - 35.7 g/dL 07/29/2024 2:18 PM [facility] Platelet 236 145 - 357 x10(3)/mc L 07/29/2024 2:18 PM [facility] Mean Platelet Volume 10.6 7.6 - 12.9 fL 07/29/2024 2:18 PM [facility] RDW Standard Deviation 43.7 36.0 - 45.0 fL 07/29/2024 2:18 PM [facility] RDW coefficient of variation 14.3(H) 11.4 - 13.8 % 07/29/2024 2:18 PM [facility] NRBC% auto 0.0 % 07/29/2024 2:18 PM [facility] NRBC Absolute <0.01 <0.01 x10(3)/mc L 07/29/2024 2:18 PM [facility] Neutrophil % 93.6 % 07/29/2024 2:18 PM [facility] Neutrophil Absolute (ANC) - Automated 18.28(H) 1.70 - 6.10 x10(3)/mc L 07/29/2024 2:18 PM [facility] Lymph % 2.7 % 07/29/2024 2:18 PM [facility] Lymph Absolute 0.52(L) 0.90 - 3.20 x10(3)/mc L 07/29/2024 2:18 PM [facility] Monocyte % 2.9 % 07/29/2024 2:18 PM [facility] Monocyte Absolute 0.56 0.30 - 0.90 x10(3)/mc L 07/29/2024 2:18 PM [facility] Eos % 0.0 % 07/29/2024 2:18 PM [facility] Eos Absolute <0.04 0.00 - 0.40 x10(3)/mc L 07/29/2024 2:18 PM [facility] Basophil % 0.3 % 07/29/2024 2:18 PM [facility] Baso Absolute 0.05 0.00 - 0.10 x10(3)/mc L 07/29/2024 2:18 PM [facility] Immature Gran % 0.5 % 2:18 PM EST [facility] Immature Gran Absolute 0.09(H) 0.00 - 0.04 x10(3)/mc L 07/29/2024 2:18 PM EST [facility] Blood VENOUS BLOOD SPECIMEN / Unknown Venipuncture / Unknown 07/29/2024 2:03 PM EST 07/29/2024 2:13 PM EST Vahe Marvin MD HEMATOLOGY ORDERABLE S Performing Organization Address City/[facility]/ZIP Co de Phone Number [facility] [place] [address] * Phosphorus (07/29/2024 2:03 PM EST) Phosphorus 2.5 2.5 - 4.5 mg/dL 07/29/2024 2:52 PM EST [facility] Blood VENOUS BLOOD SPECIMEN / Unknown Venipuncture / Unknown 07/29/2024 2:03 PM EST 07/29/2024 2:14 PM EST Vahe Marvin MD CHEMISTRY ORDERABLES Performing Organization Address [facility] Co de Phone Number [facility] [place] [address] * Magnesium (07/29/2024 2:03 PM EST) Magnesium 0.70 0.69 - 1.07 mMol/L 07/29/2024 2:52 PM EST [facility] Blood VENOUS BLOOD SPECIMEN / Unknown Venipuncture / Unknown 07/29/2024 2:03 PM EST 07/29/2024 2:14 PM EST Vahe Marvin MD CHEMISTRY ORDERABLES Performing Organization Address [facility] Co de Phone Number [facility] [place] [address] * (ABNORMAL) Comprehensive metabolic panel (07/29/2024 2:03 PM EST) Glucose 243(H) 65 - 199 mg/dL 07/29/2024 3:11 PM [facility] Comment:Glucose Concentratio n >=200 mg/dL plus symptoms is consistent with Diabetes Mellitus. Blood Urea Nitrogen 13 10 - 20 mg/dL 07/29/2024 3:11 PM [facility] Creatinine 0.88 0.80 - 1.50 mg/dL 07/29/2024 3:11 PM [facility] Sodium 138 135 - 145 mMol/L 07/29/2024 3:11 PM [facility] Potassium 3.6 3.5 - 5.0 mMol/L 07/29/2024 3:11 PM [facility] Chloride 104 98 - 107 mMol/L 07/29/2024 3:11 PM [facility] Carbon Dioxide 19(L) 22 - 31 mMol/L 07/29/2024 3:11 PM [facility] Anion Gap 15 5 - 15 mMol/L 07/29/2024 3:11 PM [facility] Calcium 8.0(L) 8.5 - 10.5 mg/dL 07/29/2024 3:11 PM [facility] Protein, Total 6.0(L) 6.1 - 8.0 g/dL 07/29/2024 3:11 PM [facility] Albumin 3.6 3.2 - 5.2 g/dL 07/29/2024 3:11 PM [facility] Aspartate Aminotransferase 07/29/2024 3:11 PM [facility] Comment:Unable to report due to hemolysis. Alanine Aminotransferase 56(H) 0 - 55 unit/L 07/29/2024 3:11 PM [facility] Alkaline Phosphatase 58 40 - 130 unit/L 07/29/2024 3:11 PM [facility] Bilirubin, Total 0.5 <=1.3 mg/dL 07/29/2024 3:11 PM [facility] Est Glomerular Filtration Rate - Male 91 mL/min/1. 73 m?? 07/29/2024 3:11 PM EST [facility] Comment: This [...] MD CHEMISTRY ORDERABLES [facility] [place] [address] * (ABNORMAL) Troponin - Single (07/29/2024 2:03 PM EST) Troponin-T, High Sensitivity >10,000(H ) <=22 ng/L 07/29/2024 2:52 PM EST [facility] Comment: This [...] [facility] [place] Laboratory Test Catalog Troponin - [email or web address].org/[email or web address]/[email or web address] Reference: Fourth [place] Definition of Myocardial Infarction. Journal of the [place] [employer] 2018;72:5948-5859 Blood VENOUS BLOOD SPECIMEN / Unknown Venipuncture / Unknown 07/29/2024 2:03 PM EST 07/29/2024 2:14 PM EST Vahe Marvin MD CHEMISTRY ORDERABLES [facility] [place] [address] * (ABNORMAL) Blood Gas, Venous POC (07/29/2024 2:01 PM EST) pH, Venous 7.30(L) 7.32 - 7.42 07/29/2024 2:02 PM [facility] PCO2, Venous 42 38 - 58 mmHg 07/29/2024 2:02 PM [facility] PO2, Venous 39 16 - 65 mmHg 07/29/2024 2:02 PM [facility] Bicarbonate, Venous 20.1(L) 22 - 31 mmol/L 07/29/2024 2:02 PM [facility] Base Excess, Venous -6.4(L) 1.9 - 4.5 mmol/L 07/29/2024 2:02 PM [facility] Hemoglobin, Venous 14.2 13.7 - 16.5 g/dL 07/29/2024 2:02 PM [facility] Oxyhemoglobin, Venous 69.3 % 07/29/2024 2:02 PM [facility] Carboxyhemoglobin , Venous 0.8 % 07/29/2024 2:02 PM [facility] Comment: Nonsmokers: 0.5-1.5% COHB ?? Smokers: Variable ??but usually less than 10% ?? Toxic: 20-30% COHB ?? Lethal: Greater than 60% COHB Methemoglobin, Venous 0.3 <=1.5 % 07/29/2024 2:02 PM EST [facility] Sodium, Venous 137 135 - 145 mmol/L 07/29/2024 2:02 PM [facility] Potassium, Venous 3.6 3.5 - 5.0 mmol/L 07/29/2024 2:02 PM [facility] Chloride, Venous 103 98 - 107 mmol/L 07/29/2024 2:02 PM EST [facility] Glucose, Venous 229(H) 65 - 199 mg/dL 07/29/2024 2:02 PM [facility] Comment:Glucose Concentratio n >=200 mg/dL plus symptoms is consistent with Diabetes Mellitus. Lactate, Venous 3.1(H) 0.5 - 2.2 mmol/L 07/29/2024 2:02 PM [facility] Ionized Calcium, Venous 1.11(L) 1.15 - 1.33 mmol/L 07/29/2024 2:02 PM [facility] Blood VENOUS BLOOD SPECIMEN / Unknown 07/29/2024 2:01 PM EST 07/29/2024 2:02 PM EST Vahe Marvin MD POINT OF CARE TEST O RDERABLES Performing Organization Address City/State/[facility] Co de Phone Number [facility] [place] [address] * CARDIAC CATHETERIZATION (07/29/2024 1:20 PM EST) Anatomical Region Laterality Modality Other Narrative 07/29/2024 2:02 PM EST ?[facility] ? Cardiac Catheterization/Intervention Report ? Patient Name: Korey Montoya. ? Procedure Date: 07/29/2024 ? A #: [id number] ? Primary Physician: Shavonne, Vahe S ? Case #: [id number] ? File Name: [id number] ? Catheterization Order Number: [id number] ? [facility] ? Final Report [place], [place] ? Patient Name: ? Korey P. Montoya ?ID#: ?[id number] ? : ?1950 ? Procedure Date: ? July 29, 2024 ?Case #: ? [id number] ? Room: ? 5 ? Case Physician: [...] was Emergent. The indication for ?the laboratory worker visit is ACS less than [...] 3.5 guiding catheter and a 3.5 Fr [place] [facility] [address] ??20 Mhz using ?Manual pullback. ??Imaging [...] ? A premounted 3.00 x 22 mm [place] Wolfe (LOW) was deployed ? with a maximum [...] ??A premounted 3.00 x 08 mm [place] Wolfe (LOW) ? was deployed with a maximum [...] administered prior to arrival in the laboratory worker. ?Recommended anti-platelet/anti-thrombotic regimen: ?Start aspirin 81 mg daily now and continue for 12 months then stop. ?Start clopidogrel 75 mg daily now and continue for indefinitely. ?These recommendations are made at the time of the intervention. Patient ?and provider preferences or a changing clinical situation may require ?modification of this regimen. Consult [facility] Interventional Cardiology for ?questions. ?The 1 year [...] able ?to start weaning his inotropes/vasopressors. A [place] Colette catheter was ?placed demonstrating improvement [...] ventricular assist device insertion, right heart ?catheterization, [place] (flow directed cath) insertion, access site ?angiography, vascular ultrasound, venous line / sheath insert and vascular ?closure device. ? Vahe Marvin M.D. ? Electronically Signed by: Vahe Marvin M.D. ? Report Finalized: 07/29/2024 ??13:55 ? Report Last Ammended: 09/20/2024 ??15:21 ? Procedure Note Vahe Marvin MD - 09/20/2024 [facility] Cardiac Catheterization/Intervention Report Patient Name: Korey MontoyaToby Procedure Date: 07/29/2024 A #: [id number] Primary Physician: Vahe Marvin Case #: [id number] File Name: [id number] Catheterization Order Number: [id number] [facility] FinalReport [place], [place] Patient Name: Korey Montoya ID#:[id number] :1950 Procedure Date: July 29, 2024 Case [...] designated as ASA Class IV. The [facility] clinical frailtyscale is 4: Vulnerable. Diagnostic Tests: Electrocardiography: EKG was assessed by ECG. EKG was Abnormal. EKG showed STDeviation >= 0.5 mm. Medications Prior to Procedure: Angiotensin II Receptor Elvis and Statin. Indications for Diagnostic Cath: The priority of the diagnostic procedure was Emergent. Theindication for the laboratory worker visit is ACS less than [...] 3.5 guiding catheter and a 3.[address] [place] [address] 20 Mhzusing Manual pullback. Imaging was [...] The priority for the procedure was Emergent.The [facility] indication for the procedure was STEMI-Immediate [...] The lesion was predilated with a 2.00mm [id number] MM balloon with a maximum inflation pressure of 12atmospheres. A premounted 3.00 x 22 mm [place] Wolfe (LOW) wasdeployed with a maximum inflation pressure [...] atmospheres. A premounted 3.00 x 08 mm [place] Wolfe(LOW) was deployed with a maximum inflation pressure [...] administered prior to arrival in the laboratory worker. Recommended anti-platelet/anti-thrombotic regimen: Start aspirin 81 mg daily now and continue for 12 months then stop. Start clopidogrel 75 mg daily now and continue for indefinitely. These recommendations are made at the time of the intervention.Patient and provider preferences or a changing clinical situation mayrequire modification of this regimen. Consult [facility] Interventional Cardiologyfor questions. The 1 year bleeding [...] wereable to start weaning his inotropes/vasopressors. A [place] Colette catheterwas placed demonstrating improvement in [...] ventricular assist device insertion, right heart catheterization, [place] (flow directed cath) insertion, access site angiography, vascular ultrasound, venous line / sheath insert andvascular closure device. Vahe Marvin M.D. Electronically Signed by: Vahe Marvin M.D. Report Finalized: 07/29/2024 13:55 Report Last Ammended: 09/20/2024 15:21 Vahe Marvin MD CARDIAC CATH ORDERAB LES * (ABNORMAL) BLOOD GAS, POC (07/29/2024 12:46 PM EST) Sodium, POC 139 135 - 145 mmol/L 07/30/2024 7:30 AM [facility] Potassium, POC 3.4(L) 3.5 - 5.0 mmol/L 07/30/2024 7:30 AM [facility] pH, POC 7.33(L) 7.35 - 7.45 07/30/2024 7:30 AM [facility] Ionized Calcium, POC 1.13(L) 1.15 - 1.33 mmol/L 07/30/2024 7:30 AM [facility] pCO2, POC 38 35 - 45 mmHg 07/30/2024 7:30 AM [facility] pO2, POC 94 85 - 104 mmHg 07/30/2024 7:30 AM [facility] Base Excess, POC -6.0(L) -3.0 - 3.0 mmol/L 07/30/2024 7:30 AM [facility] Hematocrit, POC 39.0(L) 40.5 - 48.5 %PCV 07/30/2024 7:30 AM [facility] Hemoglobin, POC 13.3(L) 13.7 - 16.5 g/dL 07/30/2024 7:30 AM [facility] Comment:The calculation of h emoglobin from hematocrit assumes a normal MCHC. Bicarbonate, POC 19.8(L) 20.0 - 26.0 mmol/L 07/30/2024 7:30 AM [facility] Carbon Dioxide, POC 21(L) 22 - 31 mmol/L 07/30/2024 7:30 AM [facility] Blood VENOUS BLOOD SPECIMEN / Unknown 07/29/2024 12:46 PM EST 07/30/2024 7:30 AM EST Vahe Marvin MD POINT OF CARE TEST O RDERABLES [facility] [place] [address] * (ABNORMAL) BLOOD GAS, POC (07/29/2024 12:12 PM EST) Sodium, POC 135 135 - 145 mmol/L 07/30/2024 7:30 AM [facility] Potassium, POC 3.8 3.5 - 5.0 mmol/L 07/30/2024 7:30 AM [facility] pH, POC 7.27(LLL) 7.35 - 7.45 07/30/2024 7:30 AM [facility] Ionized Calcium, POC 1.14(L) 1.15 - 1.33 mmol/L 07/30/2024 7:30 AM [facility] pCO2, POC 43 35 - 45 mmHg 07/30/2024 7:30 AM [facility] pO2, POC 131(H) 85 - 104 mmHg 07/30/2024 7:30 AM [facility] Base Excess, POC -7.0(L) -3.0 - 3.0 mmol/L 07/30/2024 7:30 AM [facility] Hematocrit, POC 36.0(L) 40.5 - 48.5 %PCV 07/30/2024 7:30 AM [facility] Hemoglobin, POC 12.2(L) 13.7 - 16.5 g/dL 07/30/2024 7:30 AM [facility] Comment:The calculation of h emoglobin from hematocrit assumes a normal MCHC. Bicarbonate, POC 19.7(L) 20.0 - 26.0 mmol/L 07/30/2024 7:30 AM [facility] Carbon Dioxide, POC 21(L) 22 - 31 mmol/L 07/30/2024 7:30 AM EST [facility] Blood VENOUS BLOOD SPECIMEN / Unknown 07/29/2024 12:12 PM EST 07/30/2024 7:30 AM EST Vahe Marvin MD POINT OF CARE TEST O RDERABLES [facility] [place] [address] documented in this encounter Visit Diagnoses Diagnosis [...] based off of anti-Xa levels per the [facility] Anti-Xa Algorithm and inform the [facility] attending. [...] Routine documented in this encounter Care Teams Thermal Molder Relationship Specialty Start Date End Date Alexia Mtz, [employer] PROFESSIONAL [address] [place] [address] PCP - General Family Medicine 07/30/24 documented as of this encounter
--- OUTSIDE RECORDS SUMMARY | 2024-09-26 10:18 | XMS_ITS | Encounter Summary ---
Author Organization Replaced By [facility] Address [facility] [place] [address] Care Team Providers Care Termite Control Representative Name Role Phone Yoel Artis FREDRICK Primary Care Provider [phone] Reason for Visit * Auth/Cert (Routine) Specialty Diagnoses / Procedures Referred By Theodore t Referred To Contact Diagnoses AIRO Procedures [place] [employer] [place] [employer] [facility] Referral ID Status Reason Start Date Expiration Date Visits Re quested Visits Authorized [id number] 1 Encounter Details Date Type Department Care Team (Latest Contact Info) Description 07/29/2024 6:32 PM EST - 07/29/2024 11:59 PM [facility] Hospital Encounter [facility] at [address] [phone] Arvin Becerra MD [facility] [address] EMERGENCY [place] [address] Discharge Disposition: Home Social History Tobacco Use Types Packs/Day Years Used Date Smoking Tobacco: Former Cigarettes Smokeless Tobacco: Never Alcohol Use Standard Drinks/Week Comments Not Currently 0 (1 standard drink = 0.6 oz pur e alcohol) [facility] Utilities Answer Date Recorded In the [...] any time in the past 12 m [facility], were you homeless or living in a prison (including now)? No 07/30/2024 [facility] IPV Inpatient [...] evening. 04/17/2023 08/04/2024 nitroGLYcerin (NITROLINGUAL) 400 mcg/spray [place], Non-AerosolIndications: Proctalgia fugax,Fecal smearing,Constipation, unspecified constipation type 1 spray to anus for proctalgia fugax as needed, not to exceed once daily 12 g 06/01/2023 08/04/2024 documented as of this encounter Plan of Treatment Upcoming Encounters Date Type Department Care Team (Late st Contact Info) Description 10/01/2024 10:00 AM EST Office Visit Cardiology at [address] [phone] Mushtaq Murphy APRN documented as of this encounter Visit Diagnoses Not on filedocumented in this encounter Care Teams Termite Control Representative Relationship Specialty Start Date End Date Yoel Artis APRN [address] [place] [address] PCP - General Internal Medicine 11/18/22 07/29/24 documented as of this encounter
--- OUTSIDE RECORDS SUMMARY | 2024-09-26 10:18 | XMS_ITS | Encounter Summary ---
[place] [address] Care Team Providers Care Apparel Manufacture Instructor Name Role Phone Alexia Mtz FREDRICK Primary Care Provider [phone] Reason for Visit * Auth/Cert (Routine) Specialty Diagnoses / Procedures Referred By Theodore muro Referred To Contact Diagnoses STEMI (ST elevation myocardial infarction) STEMI Procedures ER SUI Vahe Marvin MD [facility] [place] [address] [facility] Referral ID Status Reason Start Date Expiration Date Visits Re quested Visits Authorized [id number] 1 1 Encounter Details Date Type Department Care Team (Late st Contact Info) Description 07/31/2024 4:30 PM EST - 07/31/2024 5:30 PM EST Surgery [place] [address] Maldonado Luis MD [facility] [place] [address] CARDIAC CATHETERIZATION Social History Tobacco Use Types Packs/Day Years Used Date Smoking Tobacco: Former Cigarettes Smokeless Tobacco: Never Alcohol Use Standard Drinks/Week Comments Not Currently 0 (1 standard drink = 0.6 oz pur e alcohol) [facility] Utilities Answer Date Recorded In the past 12 months has [employer], gas, oil, or water company threatened [...] any time in the past 12 m [facility], were you homeless or living in a fci (including now)? No 07/30/2024 DH IPV Inpatient [...] Korey Montoya Patient Age: 74 y.o. Language: Albanian Race: White Ethnicity: Not nor Admit date: [...] the [facility] Internet Marketer . Issues afterhours and on weekends will [...] the next year. Access was via right CONTINUITY COORDINATOR and this sitewas clean, dry and intact [...] for Chest pain. Replaces: nitroGLYcerin 400 mcg/spray Olar, Non-Aerosol 0.4 mg Quantity: 90 tablet Refills: [...] Refills: 0 STOPPED Medications nitroGLYcerin 400 mcg/spray Olar, Non-Aerosol Commonly known as: NITROLINGUAL Replaced by: [...] of one year. After this time, your weight checker will determine if you need to continue [...] away. Stay on the phone. The emergency cleaning and washing equipment operator will tell you what to do. [...] appointments: During 8am-5pm Tuesday through Tuesday call [phone] to speak with a nurse in the cardiology clinic All other times call [phone] and ask to speak to the cashier office automotive exhaust emissions technician. Follow up Appointments: PCP Alexia Mtz, DISK SHARPENER [phone]. Please call to establish a follow up appointment within 1-2 weeks of discharge. Cardiology. Referral to heart failure has been sent. General Instructions None Future Appointments and Orders Future Orders Complete By Expires Referral to Cardiac Rehab [[id number] Custom] As directed Process Instructions: If no progress note charted, please enter Clinical details in comments. Scheduling Instructions: Questions: My question or request is: STEMI, PCI- cardiac rehab at [facility] Referral to Cardiology [REF12 Custom] As directed [...] of one year. After this time, your weight checker will determine if you need to continue [...] away. Stay on the phone. The emergency cleaning and washing equipment operator will tell you what to do. [...] appointments: During 8am-5pm Tuesday through Tuesday call [phone] to speak with a nurse in the cardiology clinic All other times call [phone] and ask to speak to the cashier office automotive exhaust emissions technician. Follow up Appointments: PCP Alexia Mtz, DISK SHARPENER [phone]. Please call to establish a follow up [...] home with 2 NAOMI. 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 He [...] Total time: 35 (tef) minutes Time IN/OUT: 3757-6306 ZAIDA DUBOSE PT Pager: [phone] Physical Therapy Inpatient Rehabilitation Department * Yrn Ward MD - 08/03/2024 10:38 AM EST CV HOSPITALIST 2 - [facility] DAILY PROGRESS NOTE Page [phone] to reach a provider 04/04 Admit Date: [...] or before 29-JUL-2024) Lateral injury pattern ACUTE [place] / STEMI Abnormal ECG When compared with [...] Compared to the overnight study by the automotive exhaust emissions technician fellow the impella position is stable. 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 [facility] 07/29/24 Conclusions: * One vessel coronary artery disease (LAD) * Mild pulmonary hypertension * Elevated pulmonary capillary wedge pressure * Successful stent insertion of the proximal LAD lesion * See Dual Antiplatelet (DAPT) Recommendations above * Successful impella placement for cardiogenic shock. Telemetry: I have personally reviewed and interpreted the telemetry from the last 24 hours. [facility] Assessment: ASSESSMENT: Korey Montoya is a 74 y.o. male w/ PMH of hypertension, HLD, and BPH who presents for chief concern of chest pain after being found to have ST elevations on EKG. Patient transferred via air ambulance to [facility] on 07/29 for C and LOW to [...] to be determined OT: PCP Alexia Mtz, DISK SHARPENER [phone] * Zaida Dubose, PT - 08/02/2024 2:08 [...] home with 2 NAOMI. 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 He [...] Total time: 37 (eval) minutes Time IN/OUT: 5419-0070 ZAIDA DUBOSE, PT Pager: [phone] Physical Therapy Inpatient Rehabilitation Department * Gagan [...] PCP: Alexia Mtz APRN PCP phone number: [phone] Date of Admission: 07/29/2024 ( Hospital Day [...] 07/29/24 1621 PHART 7.48* 7.44 7.38 7.37 LRV9AUX 29* 29* 34* 36 PO2ART 71* 109* 141* 71* BTO5ZBJ 20.6 19.4* 19.5* 20.4 VBG (Venous Blood Gas) Recent Labs 07/29/24 1401 PHVEN 7.30* PO2VEN 39 ZNJ0JMB 20.1* Mixed Venous Sat No results for input(s): L1WGHZ9 in the last 168 hours. Objective: Vitals [...] 07/29/24 1621 PHART 7.48* 7.44 7.38 7.37 PCJ9RRG 29* 29* 34* 36 PO2ART 71* 109* 141* 71* MFN0DKG 20.6 19.4* 19.5* 20.4 VBG (Venous Blood Gas) Recent Labs 07/29/24 1401 PHVEN 7.30* PO2VEN 39 ZOV2XDK 20.1* Mixed Venous Sat No results for input(s): A1RMDH5 in the last 168 hours. Microbiology: Microbiology Results (Last 30 days) Procedure Component Value Units Date/Time Blood culture [[id number]] Collected: 07/29/241607 Lab Status: Preliminary result Specimen: Blood, Venous Updated: 08/01/241700 Blood Culture No growth at 72 hours Blood culture [[id number]] Collected: 07/29/241607 Lab Status: Preliminary result Specimen: Blood, Venous Updated: 08/01/241700 Blood Culture No growth at 72 hours Imaging: Results for orders placed or performed during the hospital encounter of 07/29/24 XR Chest One View (Exam End: 07/29/2024 2:30 PM) Result Value WORKSTATION ID [id number] Impression 1. No pulmonary edema. 2. No pleural effusion. 3. No pneumothorax. Thank you for letting us participate in the care of this patient. If you are a health care provider and have any questions regarding this report, please contact the number below. For patients who have questions please contact the health director long term care that requested your imaging first. Electronically signed by: Chris Candelaria MD, [facility] ([phone]), at 07/29/2024 3:21 PM TTE ( 07/30/24) [...] Compared to the overnight study by the automotive exhaust emissions technician fellow the impella position is stable. [...] Susannah Ornelas MD Internal Medicine, PGY-1 Cardiology, [facility] 08/02/24 12:45 PM CARDIOLOGY STAFF NOTE [...] today). Transfer to floor. Krystal Parker MD, [facility] [place] Staff Wine Consultant food service utility worker * Gagan Catherine MD - 08/01/2024 [...] P-level 6 at time of transfer to [facility]. CI initially 1.97, improved to 2.2 After impella. Received about 3 L of fluid during procedural course. Patient initially required norepinephrine 30, epinephrine 10, and vasopressin 0.04 for hemodynamic support, which was weaned upon arrival to [facility] to norepinephrine 20and levo 0.04 N [...] interventions and documentation on the unit. Gagan Ctaherine MD 08/01/2024 * Krystal Parker MD - 08/01/2024 7:13 AM EST Images from the original note were not included. Cardiology ICU Progress Note Patient info: Name: Korey Montoya : 1950 PCP: Alexia Mtz APRN PCP phone number: [phone] Date of Admission: 07/29/2024 ( Hospital Day [...] 07/29/24 1621 PHART 7.48* 7.44 7.38 7.37 PEK8SHK 29* 29* 34* 36 PO2ART 71* 109* 141* 71* MEO8WTQ 20.6 19.4* 19.5* 20.4 VBG (Venous Blood Gas) Recent Labs 07/29/24 1401 PHVEN 7.30* PO2VEN 39 KUD8ALG 20.1* Mixed Venous Sat No results for input(s): S4MQPQ0 in the last 168 hours. PA Catheter [...] 07/29/24 1621 PHART 7.48* 7.44 7.38 7.37 NSN9ETJ 29* 29* 34* 36 PO2ART 71* 109* 141* 71* WBE8NVM 20.6 19.4* 19.5* 20.4 VBG (Venous Blood Gas) Recent Labs 07/29/24 1401 PHVEN 7.30* PO2VEN 39 TKG8KYP 20.1* Mixed Venous Sat No results for input(s): L3BRXF7 in the last 168 hours. Microbiology: Microbiology Results (Last 30 days) Procedure Component Value Units Date/Time Blood culture [[id number]] Collected: 07/29/24 160 Lab Status: Preliminary result Specimen: Blood, Venous Updated: 07/31/24 170 Blood Culture No growth at 48 hours Blood culture [[id number]] Collected: 07/29/24 1608 Lab Status: Preliminary result Specimen: Blood, Venous Updated: 07/31/24 1701 Blood Culture No growth at 48 hours Imaging: Results for orders placed or performed during the hospital encounter of 07/29/24 XR Chest One View (Exam End: 07/29/2024 2:30 PM) Result Value WORKSTATION ID [id number] Impression 1. No pulmonary edema. 2. No pleural effusion. 3. No pneumothorax. Thank you for letting us participate in the care of this patient. If you are a health care provider and have any questions regarding this report, please contact the number below. For patients who have questions please contact the health director long term care that requested your imaging first. Electronically signed by: Chris Candelaria MD, [facility] ([phone]), at 07/29/2024 3:21 PM TTE ( 07/30/24) [...] Compared to the overnight study by the automotive exhaust emissions technician fellow the impella position is stable. [...] Susannah Ornelas MD Internal Medicine, PGY-1 Cardiology, [facility] 08/01/24 7:13 AM CARDIOLOGY STAFF NOTE [...] with him; questions answered. Krystal Parker MD, [facility] Staff Wine Consultant food service utility worker * Krystal Parker MD - 07/31/2024 [...] P-level 6 at time of transfer to [facility]. CI initially 1.97, improved to 2.2 After impella. Received about 3 L of fluid during procedural course. Patient initially required norepinephrine 30, epinephrine 10, and vasopressin 0.04 for hemodynamic support, which was weaned upon arrival to [facility] to norepinephrine 20and levo 0.04 N [...] PCP: Alexia Mtz APRN PCP phone number: [phone] Date of Admission: 07/29/2024 ( Hospital Day [...] 0057 07/29/24 1621 PHART 7.44 7.38 7.37 UYX3ISP 29* 34* 36 PO2ART 109* 141* 71* LSO7HGE 19.4* 19.5* 20.4 VBG (Venous Blood Gas) Recent Labs 07/29/24 1401 PHVEN 7.30* PO2VEN 39 HRQ7EBW 20.1* Mixed Venous Sat No results for input(s): X3FUEE4 in the last 168 hours. PA Catheter [...] 0057 07/29/24 1621 PHART 7.44 7.38 7.37 ORZ7TOV 29* 34* 36 PO2ART 109* 141* 71* XAB6WZT 19.4* 19.5* 20.4 VBG (Venous Blood Gas) Recent Labs 07/29/24 1401 PHVEN 7.30* PO2VEN 39 ZYJ0BPK 20.1* Mixed Venous Sat No results for input(s): O3TSDP8 in the last 168 hours. Microbiology: Microbiology Results (Last 30 days) Procedure Component Value Units Date/Time Blood culture [[id number]] Collected: 07/29/241607 Lab Status: Preliminary result Specimen: Blood, Venous Updated: 07/30/241700 Blood Culture No Growth at 18-24 hrs. Blood culture [[id number]] Collected: 07/29/241607 Lab Status: Preliminary result Specimen: Blood, Venous Updated: 07/30/241700 Blood Culture No Growth at 18-24 hrs. Imaging: Results for orders placed or performed during the hospital encounter of 07/29/24 XR Chest One View (Exam End: 07/29/2024 2:30 PM) Result Value WORKSTATION ID [id number] Impression 1. No pulmonary edema. 2. No pleural effusion. 3. No pneumothorax. Thank you for letting us participate in the care of this patient. If you are a health care provider and have any questions regarding this report, please contact the number below. For patients who have questions please contact the health director long term care that requested your imaging first. Electronically signed by: Chris Candelaria MD, [facility] ([phone]), at 07/29/2024 3:21 PM TTE ( 07/30/24) [...] Compared to the overnight study by the automotive exhaust emissions technician fellow the impella position is stable. [...] work to optimize volume status while continuing seorstv-haemnd-ufmwjdiztw therapies at this time. Obtain comprehensive TTE. [...] P-level 6 at time of transfer to [facility]. CI initially 1.97, improved to 2.2 After impella. Received about 3 L of fluid during procedural course. Patient initially required norepinephrine 30, epinephrine 10, and vasopressin 0.04 for hemodynamic support, which was weaned upon arrival to [facility] to norepinephrine 20and levo 0.04 N [...] PCP: Yoel Artis APRN PCP phone number: [phone] Date of Admission: 07/29/2024 ( Hospital Day [...] Hour Events/Subjective: Yesterday: - Admitted to the [facility] - After his LHC, he demonstrated [...] 0057 07/29/24 1621 PHART 7.44 7.38 7.37 OPP3LPB 29* 34* 36 PO2ART 109* 141* 71* ILJ8JTF 19.4* 19.5* 20.4 VBG (Venous Blood Gas) Recent Labs 07/29/24 1401 PHVEN 7.30* PO2VEN 39 EVY6OTT 20.1* Lactate ( Last 12 hours) 1.3 >> 1.2 Mixed Venous Sat No results for input(s): B6WOSD1 in the last 168 hours. PA Catheter [...] 0057 07/29/24 1621 PHART 7.44 7.38 7.37 CKM1CKF 29* 34* 36 PO2ART 109* 141* 71* VYY6RWY 19.4* 19.5* 20.4 VBG (Venous Blood Gas) Recent Labs 07/29/24 1401 PHVEN 7.30* PO2VEN 39 GCG9UUM 20.1* Mixed Venous Sat No results for input(s): Z3SNMY3 in the last 168 hours. Microbiology: Microbiology Results (Last 30 days) Procedure Component Value Units Date/Time Blood culture [[id number]] Collected: 07/29/24 1608 Lab Status: In process Specimen: Blood, Venous Updated: 07/29/24 162 Blood culture [[id number]] Collected: 07/29/24 1608 Lab Status: In process Specimen: Blood, Venous Updated: 07/29/24 1615 Imaging: Results for orders placed or performed during the hospital encounter of 07/29/24 XR Chest One View (Exam End: 07/29/2024 2:30 PM) Result Value WORKSTATION ID [id number] Impression 1. No pulmonary edema. 2. No pleural effusion. 3. No pneumothorax. Thank you for letting us participate in the care of this patient. If you are a health care provider and have any questions regarding this report, please contact the number below. For patients who have questions please contact the health director long term care that requested your imaging first. Electronically signed by: Chris Candelaria MD, [facility] ([phone]), at 07/29/2024 3:21 PM Medications Scheduled Meds: [...] [facility] and [facility] demo nstrated 100% occlusion. No significant RCA, LMCA, or LCX disease. LOW placed in LAD with some residual distal disease meriting placement of overlapping distal stent. TTE showed apical akinesis and inferior hypokinesis with EF 20%. RHC showed elevated filling pressures. Impella placed and P-level 6 at time of transfer to [facility]. CI initially 1.97, improved to 2.2 After impella. Received about 3 L of fluid during procedural course. Patient initially required norepinephrine, epinephrine, and vasopressin for hemodynamic support, which was weaned upon arrival to [facility] to norepinephrine 20 and levo 0.04 [...] (WRVU 4.57) performed by Brandan Mcgovern MD [facility] ENDOSCOPY Significant Family History: Family [...] mouth. Past Week nitroGLYcerin (NITROLINGUAL) 400 mcg/spray Olar, Non-Aerosol 1 spray to anus for proctalgia [...] 3.5 guiding catheter and a 3.[address] 20 Mhz using Manual pullback. Imaging [...] atmospheres. A premounted 3.00 x 22 mm [place] Gladwin (LOW) was deployed with a maximum inflation [...] A premounted 3.00 x 08 mm Jeison Gladwin (LOW) was deployed with a maximum inflation [...] a limited study performed by a fellow automotive exhaust emissions technician to evaluate for cardiogenic shock with [...] Compared to the overnight study by the automotive exhaust emissions technician fellow the impella position is stable. [...] PCP: Yoel Artis APRN PCP phone number: [phone] Date of Admission: 07/29/2024 ( Hospital Day [...] (WRVU 4.57) performed by Brandan Mcgovern MD [facility] ENDOSCOPY Family History Family History [...] Blood Gas) No results for input(s): PHART, CJM3AXN, PO2ART, UVZ1HXR, LACTATEVEN, TYY0DLS, PFRATIOART2 in the last 168 hours. VBG (Venous Blood Gas) Recent Labs 07/29/24 1401 PHVEN 7.30* PO2VEN 39 XZI8POT 20.1* Mixed Venous Sat No results for input(s): K1KGJO6 in the last 168 hours. PA Catheter [...] Blood Gas) No results for input(s): PHART, SBJ5LBP, PO2ART, BOH5LCG, LACTATEVEN, YEP6NKS, PFRATIOART2 in the last 168 hours. VBG (Venous Blood Gas) Recent Labs 07/29/24 1401 PHVEN 7.30* PO2VEN 39 TPJ2RDK 20.1* Mixed Venous Sat No results for input(s): T9GMNB7 in the last 168 hours. Microbiology: Microbiology [facility]. Found to have 100% occlusion of LAD for which he underwent LOW to LAD.Otherwise no other significant vessel disease. Fahad is currently hemodynamically tenuous but improving upon admission to [facility], requiring hemodynamic support with norepinephrine and vasopressin at time of admission along with mechanical support with Impella device. Reassuringly, he demonstrates decreasing pressor requirements since admission to [facility], with epinephrine completely weaned. He does [...] Bernardo Amos MD Internal Medicine, PGY-3 Cardiology, [facility] 07/29/24 3:14 PM Cardiology Attending Note [...] Cardiovascular Medicine [facility] Measurement Advisordental laboratory supervisor [facility] [employer] [facility] This patient meets or has met medical [...] to the planned procedure. Hand Hygiene: The building energy retrofit technician did perform hand hygiene prior to arterial [...] ease. Good wave form. Ivan Hernandez MD Steelworker Associated attestation - Rolando Yeh MD - [...] Fahad was quite active prior to his [place]. 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 Given parameters for home exercise. He follows a heart healthy diet and is not overweight. His lipids are wnl. Participation in an outpatient cardiac rehabilitation program at [facility] was discussed. Patient agrees to a referral [...] No Patient is insured through: Primary Insurance: [facility] MANAGED MEDICARE Payor: [facility] MANAGED MEDICARE / Plan: [facility] MANAGED MEDICARE COMPLETE / Product Type: [...] Date of Discharge: 08/04/2024 Gaby Wong RN, [phone] * Initial Assessments - Char Meza, OT [...] (WRVU 4.57) performed by Brandan Mcgovern MD [facility] ENDOSCOPY Social History: Patient lives with his . Home Setup: 2 NAOMI to a 1 level home. DME: none Baseline ADL/Mobility: Independent with ADLs and IADLs. Enjoys walking. able assist as needed. Precautions/Special Considerations: Full code. Risk for falls. Subjective: I have access to an [employer] weight gym. (Educated to wait for MD [...] evaluation only Total Minutes, Occupational Therapy: 14 (4721-2252 (evaluation)) 2017 OT Evaluation Code Rationale: Diagnosis [...] and measurable assessment of functional outcome. Pager: [phone] Char Meza OT 08/03/2024 Occupational Therapy Rehabilitation [...] (Interventions Implemented as Appropriate) Flowsheets (Taken 08/01/2024 4502) Outcome Summary: A+O, no pain. NSR. MAP > 65, no intervention. Dobutamine and amiodarone gtts off, CI > 2 via TD and Thomas. PA cath, intro, arterial line removed. RA. Tolerating diet. Peerz removed, voiding appropriately in urinal. 20mg Lasix given with good effect. Plan of Care Reviewed With: patient Progress: improving * Brief Op Note - Maldonado Luis MD - 07/31/2024 5:35 PM EST Preliminary Cardiac Catheterization Procedure Note: Patient Name: Korey Montoya : [id number] MR#: [id number] Case Date: 07/31/2024 Internet Marketer: Surgeons and Role: * Maldonado Luis MD - Primary * Quinten Charles PA - Physician Materials Technician Preoperative diagnosis: shock, impella Postoperative diagnosis: * same * Procedure(s) performed: Impella removal form right CONTINUITY COORDINATOR Access: Right CONTINUITY COORDINATOR A time-out was conducted prior to the [...] surrogate would be surrogate decision maker per [place] decision making law. (Only good for 180 days) Any patient receiving care in [place] must abide by [place] law. The hierarchy for surrogate decision making [...] (i) The agent with financial power of title attorney or a conservator appointed in accordance [...] In the past 12 months has the [employer] gas, oil, or water [employer] threatened to shut off services in your [...] it) Home Address confirmed as: Mailing Address: [facility] [address] [address] Physical Address: [address] [place], [place] Social & Family Supports: All names [...] points: Addiction likely Health/Prescription Coverage: Primary Insurance: [facility] [employer] MEDICARE Payor: [facility] [employer] MEDICARE / Plan: [facility] [employer] [facility] COMPLETE / Product Type: *No Product type* / Secondary Insurance: N/A ; Prescription Coverage: Yes Preferred Pharmacy: [address] [address] [place] Status: Patient is a : No Primary Care Provider confirmed: Alexia Mtz, DISK SHARPENER [phone] Patient/Caregiver Goals of Treatment: return home Potential [...] Optimal Comfort and Wellbeing 07/30/2024529 by Chase Catsro RN Outcome: Ongoing (Interventions Implemented as Appropriate) [...] 07/29/2024 6:25 PM EST Pt arrived from petroleum refinery 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 CXR and EKG completed. Impella @ P6. levo/vaso titrated off. Heparin started. Mag, K and Calcium replaced. L radial a line placed. 1 episode of nausea resulting in emesis, ativan given, symptoms improved. Amio and lido started. Family visited an updated. Dopplerablepulses in R foot below impella. Indicies greater than 2. EKG redone. * Brief Op Note - Susannha Watts PA - 07/29/2024 1:33 PM EST Preliminary Cardiac Catheterization Procedure Note: Patient Name: Korey Montoya : [id number] MR#: [id number] Case Date: 07/29/2024 Internet Marketer: Surgeons and Role: * Vahe Marvin MD - Primary * Susannah Watts PA - Physician Materials Technician Preoperative diagnosis: STEMI Postoperative diagnosis: * STEMI, LAD Artery * * Cardiogenic Shock * Procedure(s) performed: [facility] Coronary angiogram Stent insertion coronary IVUS coronary Venous line insert [facility] Colette Catheter Vascular closure device Ventricular assist [...] x 22 mm to 14 deonna JEISON Gladwin with LIZ 3 flow. Residual distal disease at distal stent, overlapping distal stent was inserted with 3.0 x 8 mm JEISON Gladwin. Systolic's in the 80's sustained. Patient re [...] AM EST Office Visit Cardiology at [address] [address] Mushtaq Murphy, DISK SHARPENER Scheduled Orders Name Type Priority Associated Diagnoses [...] 0.04 x10(3)/mc L 08/04/2024 6:39 AM EST [facility] Blood VENOUS BLOOD SPECIMEN / Unknown Venipuncture / Unknown 08/04/2024 6:08 AM EST 08/04/2024 6:19 AM EST Bridgette Stauffer MD HEMATOLOGY ORDERABLE S Performing Organization Address City/[facility]/ZIP Co de Phone Number [facility] [place] [address] * Magnesium (08/04/2024 6:08 AM EST) Magnesium 0.85 0.69 - 1.07 mMol/L 08/04/2024 7:07 AM [facility] Blood VENOUS BLOOD SPECIMEN / Unknown Venipuncture / Unknown 08/04/2024 6:08 AM EST 08/04/2024 6:19 AM EST Bridgette Stauffer MD CHEMISTRY ORDERABLES Performing Organization Address City/[facility]/ZIP Co de Phone Number [facility] [place] [address] * Basic Metabolic Panel (08/04/2024 6:08 AM [...] Stauffer MD CHEMISTRY ORDERABLES Performing Organization Address City/State/[facility] Co de Phone Number [facility] [place] [address] * (ABNORMAL) CBC (with Diff) (08/03/2024 5:16 [...] % 9.0 % 08/03/2024 5:29 AM EST [facility] Monocyte Absolute 0.71 0.30 - 0.90 x10(3)/mc L 08/03/2024 5:29 AM [facility] Eos % 1.7 % 08/03/2024 5:29 AM [facility] Eos Absolute 0.13 0.00 - 0.40 x10(3)/mc L 08/03/2024 5:29 AM EST [facility] Basophil % 0.4 % 08/03/2024 5:29 AM [facility] Baso Absolute <0.04 0.00 - 0.10 x10(3)/mc L 08/03/2024 5:29 AM [facility] [...] ORDERABLE S [facility] [place] [address] * Magnesium (08/03/2024 5:16 AM EST) Magnesium 0.89 0.69 - 1.07 mMol/L 08/03/2024 5:56 AM EST [facility] Blood VENOUS BLOOD SPECIMEN / Unknown Venipuncture / Unknown 08/03/2024 5:16 AM EST 08/03/2024 5:23 AM EST Bridgette Stauffer MD CHEMISTRY ORDERABLES [facility] [place] [address] * (ABNORMAL) Basic Metabolic Panel (08/03/2024 5:16 [...] Organization Address [facility] Co de Phone Number [facility] [place] [address] * POC, GLUCOSE (08/02/2024 7:47 AM EST) [...] Organization Address [facility] Co de Phone Number [facility] [place] [address] * (ABNORMAL) CBC (with Diff) (08/02/2024 4:20 [...] 0.40 x10(3)/mc L 08/02/2024 4:50 AM EST [facility] Basophil % 0.4 % 08/02/2024 4:50 AM EST [facility] Baso Absolute <0.04 0.00 - 0.10 x10(3)/mc L 08/02/2024 4:50 AM [facility] Immature Gran % 0.4 % 4:50 AM EST [facility] Immature Gran Absolute <0.04 0.00 - 0.04 x10(3)/mc L 08/02/2024 4:50 AM [facility] Blood VENOUS BLOOD SPECIMEN / Unknown Venipuncture / Unknown 08/02/2024 4:20 AM EST 08/02/2024 4:37 AM EST Bridgette Stauffer MD HEMATOLOGY ORDERABLE S Performing Organization Address City/[facility]/ZIP Co de Phone Number [facility] [place] [address] * Magnesium (08/02/2024 4:20 AM EST) Pathologist [facility] Magnesium 0.79 0.69 - 1.07 mMol/L 08/02/2024 5:06 AM [facility] Blood VENOUS BLOOD SPECIMEN / Unknown Venipuncture / Unknown 08/02/2024 4:20 AM EST 08/02/2024 4:37 AM EST Bridgette Stauffer MD CHEMISTRY ORDERABLES [facility] [place] [address] * (ABNORMAL) Basic Metabolic Panel (08/02/2024 4:20 [...] 5 - 15 mMol/L 08/02/2024 5:06 AM [facility] Calcium 8.1(L) 8.5 - 10.5 mg/dL 08/02/2024 5:06 AM [facility] Est Glomerular Filtration Rate - Male 91 mL/min/1. 73 m?? 08/02/2024 5:06 AM [facility] [...] CHEMISTRY ORDERABLES [facility] [place] [address] * Potassium (08/01/2024 8:39 PM EST) Potassium 4.0 3.5 - 5.0 mMol/L 08/01/2024 9:21 PM EST [facility] Blood VENOUS BLOOD SPECIMEN / Unknown Venipuncture / Unknown 08/01/2024 8:39 PM EST 08/01/2024 8:51 PM EST Jay Silverio MD CHEMISTRY ORDERABL ES Performing Organization Address City/[facility]/ZIP Co de Phone Number [facility] [place] [address] * POC, GLUCOSE (08/01/2024 8:35 PM EST) [...] Organization Address [facility] Co de Phone Number [facility] [place] [address] * POC, GLUCOSE (08/01/2024 4:55 PM EST) Glucometer, POC 99 65 - 199 mg/dL 08/01/2024 4:56 PM EST [facility] Comment:Supplemental ranges: <140 mg/dL before meals <180 mg/dL all other times of the day. Blood CAPILLARY BLOOD / Unknown 08/01/2024 4:55 PM EST 08/01/2024 4:56 PM EST Krystal Parker MD POINT OF CARE TEST O JOSH Performing Organization Address City/[facility]/ZIP Co de Phone Number [facility] [place] [address] * POC, GLUCOSE (08/01/2024 12:42 PM EST) Glucometer, POC 130 65 - 199 mg/dL 08/01/2024 12:43 PM EST [facility] Comment:Supplemental ranges: <140 mg/dL before meals <180 mg/dL all other times of the day. Blood CAPILLARY BLOOD / Unknown 08/01/2024 12:42 PM EST 08/01/2024 12:43 PM EST Krystal Parker MD POINT OF CARE TEST O JOSH [facility] [place] [address] * (ABNORMAL) Cooximetry, POC (08/01/2024 10:45 AM [...] MD POINT OF CARE TEST O RDERASHAY [facility] [place] [address] * Potassium (08/01/2024 8:20 AM EST) [facility] Potassium 4.0 3.5 - 5.0 mMol/L 08/01/2024 10:17 AM EST [facility] Blood ARTERIAL BLOOD / Unknown Venipuncture / Unknown 08/01/2024 8:20 AM EST 08/01/2024 8:30 AM EST Jay Silverio MD CHEMISTRY ORDERABL ES Performing Organization Address City/[facility]/ZIP Co de Phone Number [facility] [place] [address] * POC, GLUCOSE (08/01/2024 7:44 AM EST) [...] O RDERABLES [facility] [place] [address] * (ABNORMAL) CBC (with Diff) (08/01/2024 4:18 AM EST) [facility] White Blood Cell 8.51 4.00 - 9.50 x10(3)/mc L 08/01/2024 4:53 AM EST [facility] Red Blood Cell 4.12(L) 4.58 - 5.54 x10(6)/mc L 08/01/2024 4:53 AM EST [facility] Hemoglobin 11.2(L) 13.7 - 16.5 g/dL 08/01/2024 4:53 AM EST [facility] Hematocrit 33.8(L) 40.5 - 48.5 [...] ORDERABLE S [facility] [place] [address] * Magnesium (08/01/2024 4:18 AM EST) Magnesium 0.74 0.69 - 1.07 mMol/L 08/01/2024 5:00 AM EST [facility] Blood VENOUS BLOOD SPECIMEN / Unknown Venipuncture / Unknown 08/01/2024 4:18 AM EST 08/01/2024 4:29 AM EST Bridgette Stauffer MD CHEMISTRY ORDERABLES [facility] [place] [address] * (ABNORMAL) Basic Metabolic Panel (08/01/2024 4:18 [...] Organization Address [facility] de Phone Number [facility] [place] [address] * POC, GLUCOSE (07/31/2024 8:41 PM EST) [facility] Signature Glucometer, POC 73 65 - 199 mg/dL 07/31/2024 8:41 PM EST [facility] Comment:Supplemental ranges: <140 mg/dL before meals <180 mg/dL all other times of the day. Blood CAPILLARY BLOOD / Unknown 07/31/2024 8:41 PM EST 07/31/2024 8:41 PM EST Krystal Parker MD POINT OF CARE TEST O RDERABLES Performing Organization Address [facility] Phone Number [facility] [place] [phone] * CARDIAC CATHETERIZATION (07/31/2024 5:53 PM EST) Anatomical Region Laterality Modality Other Narrative 08/01/2024 12:37 PM EST ?[facility] ? Cardiac Catheterization/Intervention Report ? Patient Name: Korey Montoya ? Procedure Date: 07/31/2024 ? A #: [id number] ? Primary Physician: Maldonado Luis ? Case #: [id number] ? File Name: [id number] ? Catheterization Order Number: [id number] ? [facility] ? Final Report [place], [place] ? Patient Name: ? Korey P. Montoya ?ID#: ?[id number] ? : ?1950 ? Procedure Date: ? [...] ? Comments: ?Impella removed from the right CONTINUITY COORDINATOR with deployment of Perclose and ?Angioseal. ??Good [...] Korey MontoyaToby Procedure Date: 07/31/2024 A #: [id number] Primary Physician: Maldonado Luis Case #: [id number] File Name: [id number] Catheterization Order Number: [id number] [facility] FinalReport [place], [place] Patient Name: Korey Montoya ID#:[id number] :1950 Procedure Date: July 31, 2024 Case [...] ASA Class IV. The [facility] clinical frailtyscale is 4: Vulnerable. Diagnostic [...] procedures. Comments: Impella removed from the right CONTINUITY COORDINATOR with deployment of Perclose and Angioseal. Good [...] O RDERABLES [facility] [place] [phone] * (ABNORMAL) Blood Gas, Arterial POC (07/31/2024 8:29 AM EST) [facility] Signature pH, Arterial 7.48(H) 7.35 - 7.45 [...] O RDERABLES [facility] [place] [address] * POC, GLUCOSE (07/31/2024 7:47 AM EST) Pathologist [facility] Glucometer, POC 82 65 - 199 mg/dL 07/31/2024 7:53 AM [facility] Comment:Supplemental ranges: <140 mg/dL before meals <180 mg/dL all other times of the day. Blood CAPILLARY BLOOD / Unknown 07/31/2024 7:47 AM EST 07/31/2024 7:53 AM EST Krystal Parker MD POINT OF CARE TEST O RDERABLES [facility] [place] [address] * (ABNORMAL) CBC (with Diff) (07/31/2024 1:08 [...] Organization Address [facility] Co de Phone Number [facility] [place] [address] * Magnesium (07/31/2024 1:08 AM EST) Pathologist [facility] Magnesium 0.89 0.69 - 1.07 mMol/L 07/31/2024 1:46 AM [facility] Blood VENOUS BLOOD SPECIMEN / Unknown Venipuncture / Unknown 07/31/2024 1:08 AM EST 07/31/2024 1:18 AM EST Bridgette Stauffer MD CHEMISTRY ORDERABLES Performing Organization Address City/[facility] Co de Phone Number [facility] [place] [address] * (ABNORMAL) Basic Metabolic Panel (07/31/2024 1:08 [...] 0.80 - 1.50 mg/dL 07/31/2024 1:46 AM [facility] Sodium 140 135 - 145 [...] CHEMISTRY ORDERABLES [facility] [place] [address] * (ABNORMAL) Hepatic Function Panel (07/31/2024 1:08 AM EST) Albumin 3.1(L) 3.2 - 5.2 g/dL 07/31/2024 1:46 AM EST [facility] Aspartate Aminotransferase 192(H) <=39 unit/L [...] CHEMISTRY ORDERABLES Performing Organization Address City/[facility] Co de Phone Number [facility] [place] [address] * POC, GLUCOSE (07/30/2024 8:03 PM EST) Glucometer, POC 86 65 - 199 mg/dL 07/30/2024 8:03 PM [facility] Comment:Supplemental ranges: <140 mg/dL before meals <180 mg/dL all other times of the day. Blood CAPILLARY BLOOD / Unknown 07/30/2024 8:03 PM EST 07/30/2024 8:03 PM EST Krystal Parker MD POINT OF CARE TEST O RDERABLES Performing Organization Address City/[facility]/ZIP Co de Phone Number [facility] [place] [address] * Potassium (07/30/2024 8:03 PM EST) Potassium 3.8 3.5 - 5.0 mMol/L 07/30/2024 9:13 PM EST [facility] Blood VENOUS BLOOD SPECIMEN / Unknown Venipuncture / Unknown 07/30/2024 8:03 PM EST 07/30/2024 8:22 PM EST Jay Silverio MD CHEMISTRY ORDERABL ES Performing Organization Address [facility] Co de Phone Number [facility] [place] [address] * POC, GLUCOSE (07/30/2024 6:23 PM EST) [...] Organization Address [facility] Co de Phone Number [facility] [place] [address] * POC, GLUCOSE (07/30/2024 5:08 PM EST) [...] Organization Address [facility] Co de Phone Number [facility] [place] [address] * (ABNORMAL) Phosphorus (07/30/2024 3:08 PM EST) Phosphorus 2.1(L) 2.5 - 4.5 mg/dL 07/30/2024 3:58 PM EST [facility] Blood VENOUS BLOOD SPECIMEN / Unknown Venipuncture / Unknown 07/30/2024 3:08 PM EST 07/30/2024 3:12 PM EST Jay Silverio MD CHEMISTRY ORDERABL ES Performing Organization Address City/[facility]/ZIP Co de Phone Number [facility] [place] [address] * Magnesium (07/30/2024 3:08 PM EST) Magnesium 0.90 0.69 - 1.07 mMol/L 07/30/2024 3:58 PM EST [facility] Blood VENOUS BLOOD SPECIMEN / Unknown Venipuncture / Unknown 07/30/2024 3:08 PM EST 07/30/2024 3:12 PM EST Jay Silverio MD CHEMISTRY ORDERABL ES Performing Organization Address City/[facility]/ZIP Co de Phone Number [facility] [place] [address] * (ABNORMAL) Basic Metabolic Panel (07/30/2024 3:08 [...] - 107 mMol/L 07/30/2024 4:17 PM EST [facility] Carbon Dioxide 21(L) 22 - 31 mMol/L 07/30/2024 4:17 PM EST [facility] Anion Gap 11 5 - 15 mMol/L 07/30/2024 4:17 PM EST [facility] Calcium 7.9(L) 8.5 - 10.5 mg/dL 07/30/2024 4:17 PM EST [facility] Est Glomerular Filtration Rate - Male 79 mL/min/1. 73 m?? 07/30/2024 4:17 PM EST [facility] MD CHEMISTRY ORDERABL ES Performing Organization Address City/State/[facility] Co de Phone Number [facility] [place] [address] * ECHO LMTD W CONTRAST W LMTD SPEC DOPP COLOR DOPP (07/30/2024 11:42 AM EST) Anatomical Region Laterality Modality Cardiac Other 07/30/2024 10:2 2 AM EST Narrative 07/30/2024 12:34 PM EST [address] [place] [address] ? Echocardiogram Report Name: KOREY MONTOYA Kyrie ? Study Date: 07/30/2024 10:22 AMBP: 124/66 mmHg : 1950 ? Height: 168 cm ? Account: [id number] Age: 74 yrs ? Weight: 65 kg [...] Compared to the overnight study by the automotive exhaust emissions technician fellow the impella position is stable. 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 Procedure Limited - 79047. Image enhancement Definity was used for both [...] Procedure Note Kathleen Banda MD - 07/30/[address] [place], [place] [id number] Echocardiogram Report Name: LARA KOREY Kyrie Study Date: 410:22 AMBP: 124/66 mmHg : 1950 Height: 168 cm Account: [id number] Age: 74 yrs Weight: 65 kg Gender: [...] Compared to the overnight study by the automotive exhaust emissions technician fellow the impella positionis stable. The global left ventricular systolic function has improvedpredominantly via recruitment outside the LAD territory which remains akinetic. Procedure Limited - 42325. Image enhancement Definity was used for both [...] * POC, GLUCOSE (07/30/2024 11:17 AM EST) [facility] Glucometer, POC 97 65 - 199 mg/dL 07/30/2024 11:17 AM EST [facility] Comment:Supplemental ranges: <140 mg/dL before meals <180 mg/dL all other times of the day. Blood CAPILLARY BLOOD / Unknown 07/30/2024 11:17 AM EST 07/30/2024 11:17 AM EST Jay Silverio MD POINT OF CARE TEST ORDERABLES Performing Organization Address City/State/[facility] Co de Phone Number [facility] [place] [address] * (ABNORMAL) Blood Gas, Arterial POC (07/30/2024 8:16 AM EST) [facility] Signature pH, Arterial 7.44 7.35 - 7.45 [...] 135 - 145 mmol/L 07/30/2024 8:17 AM [facility] Potassium, Arterial 3.9 3.5 - [...] TEST ORDERABLES [facility] [place] [address] * (ABNORMAL) Troponin - Single (07/30/2024 8:09 [...] value can be found in the [facility] Test Catalog Troponin - https://[facility]-.testcatalog.org/catalogs/565/files/97673 Reference: Fourth [place] Definition of Myocardial Infarction. Journal of the [place] 2018;72:5399-8611 Blood VENOUS BLOOD SPECIMEN / Unknown Venipuncture / Unknown 07/30/2024 8:09 AM EST 07/30/2024 8:26 AM EST Jay Silverio MD CHEMISTRY ORDERABL ES [facility] [place] [address] * POC, GLUCOSE (07/30/2024 7:40 AM EST) Pathologist [facility] Glucometer, POC 111 65 - 199 mg/dL 07/30/2024 7:40 AM EST [facility] Comment:Supplemental ranges: <140 mg/dL before meals <180 mg/dL all other times of the day. Blood CAPILLARY BLOOD / Unknown 07/30/2024 7:40 AM EST 07/30/2024 7:40 AM EST Jay Silverio MD POINT OF CARE TEST ORDERABLES [facility] [place] [address] * (ABNORMAL) CBC (with Diff) (07/30/2024 2:11 AM EST) White Blood Cell 11.25(H) 4.00 - 9.50 x10(3)/mc L 07/30/2024 2:33 AM [facility] Red Blood Cell 4.50(L) 4.58 [...] ORDERABLE S [facility] [place] [address] * Magnesium (07/30/2024 2:11 AM EST) Magnesium 1.01 0.69 - 1.07 mMol/L 07/30/2024 2:51 AM [facility] Blood VENOUS BLOOD SPECIMEN / Unknown Venipuncture / Unknown 07/30/2024 2:11 AM EST 07/30/2024 2:22 AM EST Bridgette Stauffer MD CHEMISTRY ORDERABLES Performing Organization Address City/[facility] Co de Phone Number [facility] [place] [address] * (ABNORMAL) Basic Metabolic Panel (07/30/2024 2:11 [...] - 15 mMol/L 07/30/2024 2:51 AM EST [facility] Calcium 7.7(L) 8.5 - 10.5 mg/dL 07/30/2024 2:51 AM EST [facility] Est Glomerular Filtration Rate - Male 91 mL/min/1. 73 m?? 07/30/2024 2:51 AM EST [facility] [...] 2:11 AM EST 07/30/2024 2:22 AM EST Brigdette Stauffer MD CHEMISTRY ORDERABLES [facility] [place] [address] * (ABNORMAL) Cooximetry, POC (07/30/2024 1:00 AM EST) pO2, Coox 28 mmHg 07/30/2024 1:03 AM EST [facility] Hemoglobin, Coox 12.7(L) 13.7 - 16.5 g/dL 07/30/2024 1:03 AM EST [facility] Oxyhemoglobin, Coox 54.9 % 07/30/2024 1:03 AM EST [facility] Carboxyhemoglo bin, Coox 1.0 % 07/30/2024 1:03 AM EST [facility] Comment: Nonsmokers: 0.5-1.5% COHB ?? Smokers: Variable ??but usually less than 10% ?? Toxic: 20-30% COHB ?? Lethal: Greater than 60% COHB Methemoglobin, Coox 0.0 <=1.5 % 07/30/2024 1:03 AM [facility] Blood (Mixed Venous) 07/30/2024 1:00 AM EST 07/30/2024 1:03 AM EST Jay Silverio MD POINT OF CARE TEST ORDERABLES [facility] [place] [address] * (ABNORMAL) Blood Gas, Arterial POC (07/30/2024 [...] Flow Rate 2.0 L/min 07/30/2024 12:58 AM [facility] IONIZED CALCIUM, ARTERIAL 1.12(L) 1.15 - 1.33 mmol/L 07/30/2024 12:58 AM [facility] Glucose, Arterial 184 65 - 199 mg/dL 07/30/2024 12:58 AM [facility] Comment:Glucose Concentratio n >=200 mg/dL plus symptoms is consistent with Diabetes Mellitus. Blood ARTERIAL BLOOD / Unknown 07/30/2024 12:57 AM EST 07/30/2024 12:58 AM EST Jay Silverio MD POINT OF CARE TEST ORDERABLES [facility] [place] [address] * (ABNORMAL) Troponin - Single (07/29/2024 10:31 [...] value can be found in the [facility] Test Catalog Troponin - [email or web address]/catalogs/565/files/97279 Reference: Fourth [place] Definition of Myocardial Infarction. Journal of the [place] [employer] 2018;72:0795-5066 Blood VENOUS BLOOD SPECIMEN / Unknown Venipuncture / Unknown 07/29/2024 10:31 PM EST 07/29/2024 10:36 PM EST Yrn Ward MD CHEMISTRY ORDERABL ES Performing Organization Address City/[facility]/ZIP Co de Phone Number [facility] [place] [address] * Potassium (07/29/2024 8:11 PM EST) Potassium 4.1 3.5 - 5.0 mMol/L 07/29/2024 8:52 PM EST [facility] Blood VENOUS BLOOD SPECIMEN / Unknown Venipuncture / Unknown 07/29/2024 8:11 PM EST 07/29/2024 8:16 PM EST Jay Silverio MD CHEMISTRY ORDERABL ES [facility] [place] [address] * (ABNORMAL) Troponin - Single (07/29/2024 8:11 [...] value can be found in the [facility] Test Catalog Troponin - https://[facility]-.testcatalog.org/catalogs/565/files/65236 Reference: Fourth [place] Definition of Myocardial Infarction. Journal of the [place] [employer] 2018;72:6533-0420 Blood VENOUS BLOOD SPECIMEN / Unknown Venipuncture / Unknown 07/29/2024 8:11 PM EST 07/29/2024 8:16 PM EST Jay Silverio MD CHEMISTRY ORDERABL ES Performing Organization Address City/State/[facility] Co de Phone Number [facility] [place] [address] * (ABNORMAL) Phosphorus (07/29/2024 8:11 PM EST) Phosphorus 2.1(L) 2.5 - 4.5 mg/dL 07/29/2024 8:52 PM EST [facility] Blood VENOUS BLOOD SPECIMEN / Unknown Venipuncture / Unknown 07/29/2024 8:11 PM EST 07/29/2024 8:16 PM EST Jay Silverio MD CHEMISTRY ORDERABL ES Performing Organization Address [facility] Co de Phone Number [facility] [place] [address] * POC, GLUCOSE (07/29/2024 8:09 PM EST) [...] Organization Address [facility] Co de Phone Number [facility] [place] [address] * ABORH RECHECK (07/29/2024 6:43 PM EST) Pathologist [facility] ABORH Recheck AB POSITIVE 07/29/2024 10:13 PM EST [facility] Blood VENOUS BLOOD SPECIMEN / Unknown Venipuncture / Unknown 07/29/2024 6:43 PM EST 07/29/2024 7:15 PM EST Jay Silverio MD BLOOD BANK LAB ORD ERABLES Performing Organization Address [facility] [facility] Co de Phone Number [facility] [place] [address] * POC, GLUCOSE (07/29/2024 5:57 PM EST) Glucometer, POC 166 65 - 199 mg/dL 07/29/2024 5:57 PM EST [facility] Comment:Supplemental ranges: <140 mg/dL before meals <180 mg/dL all other times of the day. Blood CAPILLARY BLOOD / Unknown 07/29/2024 5:57 PM EST 07/29/2024 5:57 PM EST Jay Silverio MD POINT OF CARE TEST ORDERABLES Performing Organization Address City/[facility]/ZIP Co de Phone Number [facility] [place] [address] * Type and screen ([facility]JONG/MAGALIE) (07/29/2024 5:56 PM EST) [facility] ABORH Type AB POSITIVE 07/29/2024 9:44 PM EST [facility] PATIENT HISTORY Not Found 07/29/2024 9:44 PM EST [facility] Expires at [id number] on: 08/01/2024 07/29/2024 9:44 PM EST [facility] ANTIBODY SCREEN AUTOMATED Negative 07/29/2024 9:44 PM EST [facility] T&S only valid at [facility] 07/29/2024 9:44 PM EST [facility] Blood VENOUS BLOOD SPECIMEN / Unknown Venipuncture / Unknown 07/29/2024 5:56 PM EST 07/29/2024 6:07 PM EST Narrative [facility] - 07/29/2024 9:44 PM EST This Type and Screen result is only valid at the [facility] Jay Silverio MD BLOOD BANK LAB ORD ERABLES Performing Organization Address City/[facility] Co de Phone Number [facility] [place] [address] * (ABNORMAL) Troponin - Single (07/29/2024 4:52 [...] value can be found in the [facility] Test Catalog Troponin - https://[email or web address]-.testcatalog.org/catalogs/565/files/42670 Reference: Fourth [place] Definition of Myocardial Infarction. Journal of the [place] College [employer] 2018;72:1436-0043 Blood VENOUS BLOOD SPECIMEN / Unknown Venipuncture / Unknown 07/29/2024 4:52 PM EST 07/29/2024 4:57 PM EST Jay Silverio MD CHEMISTRY ORDERABL ES Performing Organization Address [facility]/ZIP Co de Phone Number [facility] [place] [address] * EKG 12 Lead (07/29/2024 4:21 PM EST) Ventricular rate 72 BPM MUSE SYSTEM Atrial Rate 72 BPM MUSE SYSTEM P-R Interval 168 ms MUSE SYSTEM QRS Duration 82 ms MUSE SYSTEM Q-T Interval 392 ms MUSE SYSTEM QTC Calculated (Bezet) 429 ms MUSE SYSTEM Calculated P [place] 71 degrees MUSE SYSTEM Calculated R [place] 77 degrees MUSE SYSTEM Calculated T [place] 28 degrees MUSE SYSTEM INTERPRETATION Sinus rhythm with Premature supraventricular complexes and Occasional Premature ventricular complexes Low voltage QRS 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) Lateral injury pattern ACUTE [place] / STEMI Abnormal ECG When compared with [...] 7.37 7.35 - 7.45 07/29/2024 4:22 PM [facility] PCO2, Arterial 36 35 - 45 mmHg 07/29/2024 4:22 PM [facility] PO2, Arterial 71(L) 85 - 104 mmHg 07/29/2024 4:22 PM [facility] Bicarbonate, Arterial 20.4 20.0 - 26.0 mmol/L 07/29/2024 4:22 PM [facility] Base Excess, Arterial -4.8(L) -3.0 [...] - 2.2 mmol/L 07/29/2024 4:22 PM EST [facility] Fraction of Inspired Oxygen 21 [...] OF CARE TEST ORDERABLES Performing Organization Address City/[facility]/ZIP Co de Phone Number [facility] [place] [address] * POC, GLUCOSE (07/29/2024 4:19 PM EST) Glucometer, POC 185 65 - 199 mg/dL 07/29/2024 4:19 PM [facility] Comment:Supplemental ranges: <140 mg/dL before meals <180 mg/dL all other times of the day. Blood CAPILLARY BLOOD / Unknown 07/29/2024 4:19 PM EST 07/29/2024 4:19 PM EST Jay Silverio MD POINT OF CARE TEST ORDERABLES [facility] [place] [address] * Blood culture (07/29/2024 4:08 PM EST) Blood Culture No growth at 120 hours 08/03/2024 5:01 PM EST [facility] Blood VENOUS BLOOD SPECIMEN / Unknown Venipuncture / Unknown 07/29/2024 4:08 PM EST 07/29/2024 4:15 PM EST Jay Silverio MD MICROBIOLOGY - BLO OD ORDERABLES Performing Organization Address [facility] Co de Phone Number [facility] [place] [address] * Blood culture (07/29/2024 4:08 PM EST) Blood Culture No growth at 120 hours 08/03/2024 5:01 PM EST [facility] Blood VENOUS BLOOD SPECIMEN / Unknown Venipuncture / Unknown 07/29/2024 4:08 PM EST 07/29/2024 4:26 PM EST Jay Silverio MD MICROBIOLOGY - BLO OD ORDERABLES Performing Organization Address [facility] de Phone Number [facility] [place] [phone] * XR Chest One View (07/29/2024 2:30 PM EST) WORKSTATION ID [id number] RAD Anatomical Region Laterality Modality Chest N/A [...] have questions please contact the health director long term care that requested your imaging first. ? Electronically signed by: Chris Candelaria MD, [facility] ([phone]), at 07/29/2024 3:21 PM Narrative 07/29/2024 3:21 [...] who have questions please contactthe health director long term care that requested your imaging first. Electronically signed by: Chris Candelaria MD, [facility]([phone]), at 07/29/2024 3:21 PM Vahe Marvin MD IMG DX ORDERABLES * (ABNORMAL) APTT (07/29/2024 2:03 PM EST) [facility] Partial Thromboplastin Time >160(HHH) 25 - 37 sec 07/29/2024 2:56 PM EST [facility] Blood VENOUS BLOOD SPECIMEN / Unknown Venipuncture / Unknown 07/29/2024 2:03 PM EST 07/29/2024 2:13 PM EST Vahe Marvin MD HEMATOLOGY ORDERABLE S Performing Organization Address City/[facility]/ZIP Co de Phone Number [facility] [place] [address] * (ABNORMAL) Prothrombin Time (07/29/2024 2:03 PM [...] Organization Address [facility] Co de Phone Number [facility] [place] [address] * CRP, acute inflammation (07/29/2024 2:03 PM EST) C-Reactive Protein <3.0 <=4.9 mg/L 07/29/2024 2:52 PM EST [facility] Blood VENOUS BLOOD SPECIMEN / Unknown Venipuncture / Unknown 07/29/2024 2:03 PM EST 07/29/2024 2:14 PM EST Vahe Marvin MD CHEMISTRY ORDERABLES [facility] [place] [address] * Lipid Panel (Reflex Direct LDL) (07/29/2024 2:03 PM EST) Cholesterol, Total 133 mg/dL 07/29/2024 2:52 PM [facility] Comment: Desirable: < 200 mg/dL Borderline High: 200 - 239 mg/dL High: > or = 240 mg/dL Triglyceride 45 mg/dL 07/29/2024 2:52 PM [facility] Comment: Normal: <150 mg/dL Borderline [...] 2:03 PM EST 07/29/2024 2:14 PM EST [facility] LAB[facility] - 07/29/2024 2:52 PM EST [...] artery disease) Vahe Marvin MD CHEMISTRY ORDERABLES [facility] [place] [address] * TSH [place] (07/29/2024 2:03 PM EST) Thyroid Stimulating Hormone 0.70 0.27 - 4.20 mcIU/mL 07/29/2024 2:52 PM EST [facility] Blood VENOUS BLOOD SPECIMEN / Unknown Venipuncture / Unknown 07/29/2024 2:03 PM EST 07/29/2024 2:14 PM EST Vahe Marvin MD CHEMISTRY ORDERABLES [facility] [place] [address] * Hemoglobin A1c (07/29/2024 2:03 PM EST) Pathologist [facility] Hemoglobin A1c 5.3 4.3 - 5.6 [...] red blood cell turnover may not be electroplating sales representative of glycemic control. Reference Interval: [...] 2:03 PM EST 07/29/2024 2:14 PM EST [facility] LABORATORY - 07/29/2024 2:41 PM EST Estimated average glucose (eAG) is calculated from the equation described in: Quinten ALVES, Rikki J, Reno R, et al. ??Translating the A1C assay into estimated average glucose values. ??Diabetes Care 2008:31(8):9305-8420. Additional resources are available on the ADA website (diabetes.org). Vahe Marvin MD CHEMISTRY ORDERABLES [facility] [place] [address] * (ABNORMAL) CBC (with Diff) (07/29/2024 2:03 [...] - 48.5 % 07/29/2024 2:18 PM EST [facility] Mean Cell Volume 83.4 82.9 - 93.1 fL 07/29/2024 2:18 PM EST [facility] Mean Cell Hemoglobin 27.2(L) 27.5 [...] - 3.20 x10(3)/mc L 07/29/2024 2:18 PM [facility] Monocyte % 2.9 % 07/29/2024 2:18 PM [facility] Monocyte Absolute 0.56 0.30 - 0.90 x10(3)/mc L 07/29/2024 2:18 PM [facility] Eos % 0.0 % 07/29/2024 2:18 PM [facility] Eos Absolute <0.04 0.00 - 0.40 x10(3)/mc L 07/29/2024 2:18 PM [facility] Basophil % 0.3 % 07/29/2024 2:18 PM [facility] Baso Absolute 0.05 0.00 - 0.10 x10(3)/mc L 07/29/2024 2:18 PM [facility] Immature Gran % 0.5 % 2:18 PM [facility] Immature Gran Absolute 0.09(H) 0.00 - 0.04 x10(3)/mc L 07/29/2024 2:18 PM [facility] Blood VENOUS BLOOD SPECIMEN / Unknown Venipuncture / Unknown 07/29/2024 2:03 PM EST 07/29/2024 2:13 PM EST Vahe Marvin MD HEMATOLOGY ORDERABLE S [facility] [place] [address] * Phosphorus (07/29/2024 2:03 PM EST) Phosphorus 2.5 2.5 - 4.5 mg/dL 07/29/2024 2:52 PM EST [facility] Blood VENOUS BLOOD SPECIMEN / Unknown Venipuncture / Unknown 07/29/2024 2:03 PM EST 07/29/2024 2:14 PM EST Vahe Marvin MD CHEMISTRY ORDERABLES Performing Organization Address City/[facility]/ZIP Co de Phone Number [facility] [place] [address] * Magnesium (07/29/2024 2:03 PM EST) Pathologist [facility] Magnesium 0.70 0.69 - 1.07 mMol/L 07/29/2024 2:52 PM EST [facility] Blood VENOUS BLOOD SPECIMEN / Unknown Venipuncture / Unknown 07/29/2024 2:03 PM EST 07/29/2024 2:14 PM EST Vahe Marvin MD CHEMISTRY ORDERABLES Performing Organization Address City/[facility]/ZIP Co de Phone Number [facility] [place] [address] * (ABNORMAL) Comprehensive metabolic panel (07/29/2024 2:03 PM EST) Glucose 243(H) 65 - 199 mg/dL 07/29/2024 3:11 PM EST [facility] Comment:Glucose Concentratio n >=200 mg/dL plus symptoms is consistent with Diabetes Mellitus. Blood Urea Nitrogen 13 10 - 20 mg/dL 07/29/2024 3:11 PM EST [facility] Creatinine 0.88 0.80 - 1.50 [...] 8.5 - 10.5 mg/dL 07/29/2024 3:11 PM [facility] Protein, Total 6.0(L) 6.1 - [...] CHEMISTRY ORDERABLES [facility] [place] [address] * (ABNORMAL) Troponin - Single (07/29/2024 2:03 [...] value can be found in the [facility] Test Catalog Troponin - https://[email or web address]-.testcatalog.org/catalogs/565/files/36269 Reference: Fourth [place] Definition of Myocardial Infarction. Journal of the [place] College [employer]iology 2018;72:3007-7008 Blood VENOUS BLOOD SPECIMEN / Unknown Venipuncture / Unknown 07/29/2024 2:03 PM EST 07/29/2024 2:14 PM EST Vahe Marvin MD CHEMISTRY ORDERABLES [facility] [place] [address] * (ABNORMAL) Blood Gas, Venous POC (07/29/2024 2:01 PM EST) pH, Venous 7.30(L) 7.32 - 7.42 07/29/2024 2:02 PM [facility] PCO2, Venous 42 38 - 58 mmHg 07/29/2024 2:02 PM [facility] PO2, Venous 39 16 - [...] - 2.2 mmol/L 07/29/2024 2:02 PM EST [facility] Ionized Calcium, Venous 1.11(L) 1.15 - 1.33 mmol/L 07/29/2024 2:02 PM EST [facility] Blood VENOUS BLOOD SPECIMEN / Unknown 07/29/2024 2:01 PM EST 07/29/2024 2:02 PM EST Vahe Marvin MD POINT OF CARE TEST O RDERABLES Performing Organization Address City/State/[facility] Co de Phone Number [facility] [place] [address] * CARDIAC CATHETERIZATION (07/29/2024 1:20 PM EST) Anatomical Region Laterality Modality Other Narrative 07/29/2024 2:02 PM EST ?[facility] ? Cardiac Catheterization/Intervention Report ? Patient Name: Korey Montoya Driss ? Procedure Date: 07/29/2024 ? A #: [id number] ? Primary Physician: Vahe Marvin ? Case #: [id number] ? File Name: [id number] ? Catheterization Order Number: [id number] ? [facility] ? Final Report [place], [place] ? Patient Name: ? Korey P. Montoya ?ID#: ?[id number] ? : ?1950 ? Procedure Date: ? [...] procedure was Emergent. The indication for ?the petroleum refinery laborer visit is ACS less than or [...] 3.5 guiding catheter and a 3.[address] ??20 Mhz using ?Manual pullback. ??Imaging [...] A premounted 3.00 x 22 mm Jeison Gladwin (LOW) was deployed ? with a maximum [...] atmospheres. ??A premounted 3.00 x 08 mm Buffalo Gladwin (LOW) ? was deployed with a maximum [...] dose administered prior to arrival in the petroleum refinery laborer. ?Recommended anti-platelet/anti-thrombotic regimen: ?Start aspirin 81 [...] able ?to start weaning his inotropes/vasopressors. A Brookhaven Colette catheter was ?placed demonstrating improvement in his hemodynamics and the impella site ?was perclosed and hemostatic gauze was applied with excellent result. ?WIll transfer to the [facility] for further management. ?The attending physician was present for the entire procedure. ?Dr. Vahe Marvin M.D. was present during the moderate sedation ?intraservice time as documented by the sedation nurse. ??Case time = 01:26. ?Dr. Vahe Marvin M.D. performed the coronary angiography, left heart ?catheterization, IVUS # coronary, stent insertion-coronary, oximetry, ABG, ?transthoracic echo , ventricular assist device insertion, right heart ?catheterization, Brookhaven (flow directed cath) insertion, access site ?angiography, vascular ultrasound, venous line / sheath insert and vascular ?closure device. ? Vahe Marvin M.D. ? Electronically Signed by: Vahe Marvin M.D. ? Report Finalized: 07/29/2024 ??13:55 ? Report Last Ammended: 09/20/2024 ??15:21 ? Procedure Note Vahe Marvin MD - 09/20/2024 [facility] Cardiac Catheterization/Intervention Report Patient Name: Korey Montoya Procedure Date: 07/29/2024 A #: [id number] Primary Physician: Vahe Marvin Case #: [id number] File Name: [id number] Catheterization Order Number: [id number] [facility] FinalReport [place], [place] Patient Name: Korey Montoya ID#:[id number] :1950 Procedure Date: July 29, 2024 Case [...] ASA Class IV. The [facility] clinical frailtyscale is 4: Vulnerable. Diagnostic Tests: Electrocardiography: EKG was assessed by ECG. EKG was Abnormal. EKG showed STDeviation >= 0.5 mm. Medications Prior to Procedure: Angiotensin II Receptor Elvis and Statin. Indications for Diagnostic Cath: The priority of the diagnostic procedure was Emergent. Theindication for the petroleum refinery laborer visit is ACS less than or [...] 3.5 guiding catheter and a 3.[address] 20 Mhzusing Manual pullback. Imaging was [...] priority for the procedure was Emergent.[facility] for the procedure was STEMI-Immediate [...] The lesion was predilated with a 2.00mm [id number] MM balloon with a maximum inflation pressure of 12atmospheres. A premounted 3.00 x 22 mm [place] Gladwin (LOW) wasdeployed with a maximum inflation pressure [...] atmospheres. A premounted 3.00 x 08 mm [place] Gladwin(LOW) was deployed with a maximum inflation pressure [...] dose administered prior to arrival in the petroleum refinery laborer. Recommended anti-platelet/anti-thrombotic regimen: Start aspirin 81 [...] wereable to start weaning his inotropes/vasopressors. A Brookhaven Colette catheterwas placed demonstrating improvement in his [...] ventricular assist device insertion, right heart catheterization, [place] (flow directed cath) insertion, access site angiography, [...] O RDERABLES [facility] [place] [address] * (ABNORMAL) BLOOD GAS, POC (07/29/2024 12:12 [...] O RDERABLES [facility] [place] [address] documented in this encounter Visit Diagnoses Not [...] Watson RN) 0934 (Given - Provider: Tonya Wtason RN) empagliflozin (Jardiance) tablet 10 mg 10 [...] diabetes? Yes 1242 (Given - Provider: Tonya Waston RN) 0934 (Given - Provider: Tonya Watson [...] Routine documented in this encounter Care Teams Apparel Manufacture Instructor Relationship Specialty Start Date End Date Alexia Mtz, DISK SHARPENER [address] [place] [address] PCP - General Family Medicine 07/30/24 documented as of this encounter
--- OUTSIDE RECORDS SUMMARY | 2024-09-26 10:19 | XMS_ITS | Encounter Summary ---
[place] [address] Care Team Providers Care Virtual Recruiter Name Role Phone Alexia Mtz FREDRICK Primary Care Provider [phone] Encounter Details Date Type Department Care Team (Late st Contact Info) Description 07/29/2024 External [place] [id number] Social History Tobacco Use Types Packs/Day Years [...] AM EST Office Visit Cardiology at [address] [address] Mushtaq Murphy APRN documented as of this encounter Procedures Procedure Name Priority Date/Time Associated Diagnosis Comments MISC EXTERNAL CARDIOLOGY RESULT Routine 07/29/2024 10:13 AM EST documented in this encounter Results * External Cardiology Result (07/29/2024 10:13 AM EST) Anatomical Region Laterality Modality Other Historical Provider EXTERNAL CARDIOLO GY RESULT documented in this encounter Visit Diagnoses Not on filedocumented in this encounter Care Teams Virtual Recruiter Relationship Specialty Start Date End Date Alexia Mtz APRN [address] [place] [address] PCP - General Family Medicine 07/30/24 documented as of this encounter
--- OUTSIDE RECORDS SUMMARY | 2024-09-26 10:19 | XMS_ITS | Encounter Summary ---
[place] [address] Care Team Providers Care White Sugar Boiler Name Role Phone Unknown Primary Care Provider Unavailabl e Encounter Details Date Type Department Care Team (Late st Contact Info) Description 12/03/2018 Interpretation Only [address] [phone] Ac Albrecht PA [address] [place] [address] [place] [address] Social History Tobacco Use Types Packs/Day Years [...] AM EST Office Visit Cardiology at [address] [address] Mushtaq Murphy, WATCH AND CLOCK REPAIR CLERK documented as of this encounter Procedures Procedure [...] on filedocumented in this encounter Care Teams White Sugar Boiler Relationship Specialty Start Date End Date Unknown None PCP - General 08/04/10 01/16/19 documented as of this encounter
--- OUTSIDE RECORDS SUMMARY | 2024-09-26 10:19 | XMS_ITS | Encounter Summary ---
[place] [address] Care Team Providers Care Forming Operator Name Role Phone Yoel Artis APRN Primary Care Provider [phone] Encounter Details Date Type Department Care Team (Late st Contact Info) Description 12/23/2022 8:20 AM EDT - 12/23/2022 11:59 PM EDT Hospital Encounter [facility] [address] [place] [address] Yoel Artis APRN [address] [place] [address] Discharge Disposition: Home Social History Tobacco Use [...] AM EST Office Visit Cardiology at [address] [address] Mushtaq Murphy APRN documented as of this encounter Procedures Procedure Name Priority Date/Time Associated Diagnosis Comments PSA SCREEN Routine 12/23/2022 8:43 AM EDT documented in this encounter Results * (ABNORMAL) PSA Screen (12/23/2022 8:43 AM EDT) PSA Screen 4.37(H) 0.00 - 4.00 ng/mL [facility] Comment: PLEASE NOTE: The [...] City/State/[facility] Co de Phone Number [facility] [address] documented in this encounter Visit Diagnoses Not on filedocumented in this encounter Care Teams Forming Operator Relationship Specialty Start Date End Date Yoel Artis APRN [address] [place] [address] PCP - General Internal Medicine 11/18/22 07/29/24 documented as of this encounter
--- OUTSIDE RECORDS SUMMARY | 2024-09-26 10:19 | XMS_ITS | Encounter Summary ---
[place] [address] Care Team Providers Care Jigman Name Role Phone Yoel Artis FREDRICK Primary Care Provider [phone] Encounter Details Date Type Department Care Team (Late st Contact Info) Description 01/16/2024 Interpretation Only [facility] [address] [place] [address] Chaparro [place] MD [address] [place] [address] Social History Tobacco Use Types Packs/Day Years [...] AM EST Office Visit Cardiology at [address] [phone] Mushtaq Murphy APRN documented as of this encounter Procedures Procedure Name Priority Date/Time Associated Diagnosis Comments XR CHEST ONE VIEW STAT 01/16/2024 4:0 4 PM EDT documented in this encounter Results * XR Chest One View (01/16/2024 4:04 PM EDT) PT CLASS E RAD ADMITDTTM [id number] RAD PT RAD INFO [id number]^Haniss henry^Chaparro RAD EXAM DESC XCXR1^XR Chest 1 View^RIS RAD WORKSTATION ID [id number] [facility] Anatomical Region Laterality Modality Chest [...] who have questions please contact the health acute care occupational therapist that requested your imaging first. ? Narrative [...] patients who have questions please contactthe health acute care occupational therapist that requested your imaging first. Chaparro Montana MD IMG DX ORDERABLES documented in this encounter Visit Diagnoses Not on filedocumented in this encounter Care Teams Jigman Relationship Specialty Start Date End Date Yoel Artis APRN [address] [place] [address] PCP - General Internal Medicine 11/18/22 07/29/24 documented as of this encounter
--- OUTSIDE RECORDS SUMMARY | 2024-09-26 10:19 | XMS_ITS | Encounter Summary ---
Author Organization [facility] Address [facility] [place] [address] Care Team Providers Care Food Safety Technician Name Role Phone Yoel Artsi APRN Primary Care Provider [phone] Encounter Details Date Type Department Care Team (Latest Contact Info) Description 11/30/2023 8:00 AM EDT TH Visit (TeleHealth) [place] [address] Yoel Dangelo APRN [facility] [place] [address] Proctalgia fugax; Constipation, unspecified constipation type Social [...] Bath: Sitz bath's are available in most [facility]. They work by improving blood flow and [...] Handout for Patients and Primary Care Providers [facility] Gastrointestinal Motility, Esophageal, and Swallowing Disorders Center [...] what is the impact? 15-20% of general [place] population has IBS or FD or both 2nd most common cause for lost work days (after common cold) in [place] Estimated $30 billion dollar cost to [place] per year These disorders can have [...] with immediate onset of symptoms after infection); jail symptoms are expected in most patients however [...] to you primary care provider and/or local filter washer and share this document. Treatment of functional [...] - this approach benefits most patients OTC (rncz-vqw-tjedwjk) medications can be used for ongoing bothersome [...] All-Bran psyllium buds, Metamucil, Konsyl, bulk psyllium ([employer] stores and [employer] stores) Specifically we recommend starting Metamucil or [...] but convincing medical evidence is still lacking Iwfn-ggq-fxajgfu supplements including probiotics are not typically evaluated [...] to decrease antibiotic-associated diarrhea and antibiotic-related infections Rqfs-cus-Kduxsiq Medications for Functional Gut Disorders Based on [...] (GERD) Often a combination of anti-nausea medications (uptf-bok-bstdkmb or prescription) works better thanhigh doses of [...] for misuse/misinterpretation of this information Patient Resources [place] [employer] https://www.gastro.org/practice-guidance/bx-spntrwp-gzwoaz/ topic/ytwsgqzqq-urkyc-njvngzqu-ibs Badgut.org https://badgut.org/information-centre/g-f-gnmizmdps-topics/ibs/ AboutIBS.org https://www.aboutibs.org/ Uptodate.com https://www.uptodate.com/contents/oomyihvjp-qouyo-bvgxtjdr-bzcqia-boi-zryizd documented in this encounter Progress Notes * [...] Take by mouth. nitroGLYcerin (NITROLINGUAL) 400 mcg/spray [place], Non-Aerosol 1 spray to anus for proctalgia fugax as needed, not to exceed once daily 12 g 0 No facility-administered medications prior to visit. Allergies: has No Known Allergies. Past Medical History: has a past medical history of ADHD, HLD (hyperlipidemia), HTN (hypertension),and Tremor. Past Surgical History: has a past surgical history that includes Hand surgery and Colonoscopy, Antonieta Pfeiffer ([id number]) (N/A, 08/30/2023). Family History: family history is [...] for re-evaluation. The patient was located in [place] at the time of their visit. Yoel Dangelo APRN [facility] [place] [address] documented in this encounter Miscellaneous Notes * Addendum Note - Yoel Dangelo APRN - 11/30/2023 8:00 AM EDTAddended by: YOEL DANGELO on: 11/30/2023 08:46 AM Modules accepted: Level of Service documented in this encounter Plan of Treatment Upcoming Encounters Date Type Department Care Team (Late st Contact Info) Description 10/01/2024 10:00 AM EST Office Visit Cardiology at [address] [address] Mushtaq Murphy APRN documented as of this encounter Visit Diagnoses Diagnosis Proctalgia fugax Anal spasm Constipation, unspecified constipation type documented in this encounter Care Teams Food Safety Technician Relationship Specialty Start Date End Date Yoel Artis APRN [address] [place] [address] PCP - General Internal Medicine 11/18/22 07/29/24 documented as of this encounter
--- OUTSIDE RECORDS SUMMARY | 2024-09-26 10:19 | XMS_ITS | Encounter Summary ---
[place] [address] Care Team Providers Care Philosophy Lecturer Name Role Phone Alexia Mtz MANPOWER DEVELOPMENT SPECIALIST Primary Care Provider [phone] Encounter Details Date Type Department Care Team (Late st Contact Info) Description 06/25/2024 Lab [place] [phone] Aubrey Cali MD [address] [place] [address] [id number] Pyuria Social History Tobacco Use Types Packs/Day [...] AM EST Office Visit Cardiology at [address] [phone] Mushtaq Murphy APRN documented as of this encounter Procedures Procedure Name Priority Date/Time Associated Diagnosis Comments URINE CULTURE Routine 06/25/2024 11:55 AM EDT Pyuria documented in this encounter Results * Urine culture (06/25/2024 11:55 AM EDT) Urine Culture No growth 06/26/2024 12:22 PM EDT [facility] Urine URINE SPECIMEN OBTAINED BY CLEAN CATCH PROCEDURE / Unknown 06/25/2024 11:55 AM EDT 06/25/2024 5:18 PM EDT Aubrey Cali MD MICROBIOLOGY - GENER AL ORDERABLES [facility] [place] [address] documented in this encounter Visit Diagnoses Diagnosis Pyuria Other nonspecific finding on examination of urine documented in this encounter Care Teams Philosophy Lecturer Relationship Specialty Start Date End Date Alexia Mtz APRN [address] [place] [address] PCP - General Family Medicine 07/30/24 documented as of this encounter
--- OUTSIDE RECORDS SUMMARY | 2024-09-26 10:19 | XMS_ITS | Encounter Summary ---
[place] [address] Care Team Providers Care Fiscal Accountant Name Role Phone Anibal Mtz MD Primary Care Provider [phone] Encounter Details Date Type Department Care Team (Late st Contact Info) Description 11/08/2022 [facility] [place] Only [address] [phone] Eve Frost MD [address] [place] [phone] Social History Tobacco Use Types Packs/Day Years [...] AM EST Office Visit Cardiology at [address] [address] Mushtaq Murphy APRN documented as of this encounter Procedures Procedure Name Priority Date/Time Associated Diagnosis Comments XR CHEST PA AND LATERAL STAT 11/08/2022 10:34 AM EST documented in this encounter Results * XR Chest PA & Lateral (Generic) (11/08/2022 10:34 AM EST) PT CLASS E RAD ADMITDTTM RAD PT RAD INFO [id number]^C HANDER^SUNEE R RAD EXAM DESC XCXR2^XR CHEST [...] who have questions please contact the health family day care worker that requested your imaging first. ? Electronically signed by: Alejandro Tenorio MD, [facility] ([phone]), at 11/08/2022 10:37 AM Narrative 11/08/2022 10:37 [...] patients who have questions please contactthe health family day care worker that requested your imaging first. Eve Frost MD IMG DX ORDERABLES documented in this encounter Visit Diagnoses Not on filedocumented in this encounter Care Teams Fiscal Accountant Relationship Specialty Start Date End Date Anibal Mtz MD [address] [place] [address] PCP - General Family Medicine 01/17/19 11/17/22 documented as of this encounter
--- OUTSIDE RECORDS SUMMARY | 2024-09-26 10:19 | XMS_ITS | Encounter Summary ---
[place] [address] Care Team Providers Care Sort Operations Supervisor Name Role Phone Yoel Artis FREDRICK Primary Care Provider [phone] Encounter Details Date Type Department Care Team (Late st Contact Info) Description 01/16/2024 Interpretation Only [facility] [address] [place] [address] Chaparro Montana MD [address] [place] [address] Social History Tobacco Use Types Packs/Day Years [...] AM EST Office Visit Cardiology at [address] [address] Mushtaq Murphy APRN documented as of this encounter Procedures Procedure Name Priority Date/Time Associated Diagnosis Comments CT HEAD WO CONTRAST (GENERIC) STAT 01/16/2024 4:17 PM EDT documented in this encounter Results * CT Head wo Contrast (Generic) (01/16/2024 4:17 PM EDT) PT CLASS E RAD ADMITDTTM [id number] [facility] PT RAD INFO [id number]^Haniss henry^Chaparro RAD EXAM DESC CTHEAD^CT Head w/o Contrast^RIS [facility] WORKSTATION ID [id number] [facility] Anatomical Region Laterality Modality Head Computed Tomogra [...] guidance technician that requested your imaging first. Chaparro Montana MD IMG CT ORDERABLES documented in this encounter Visit Diagnoses Not on filedocumented in this encounter Care Teams Sort Operations Supervisor Relationship Specialty Start Date End Date Yoel Artis APRN [address] [place] [address] PCP - General Internal Medicine 11/18/22 07/29/24 documented as of this encounter
--- OUTSIDE RECORDS SUMMARY | 2024-09-26 10:19 | XMS_ITS | Encounter Summary ---
[place] [address] Care Team Providers Care Commercial Property Administrator Name Role Phone Yoel Artis FREDRICK Primary Care Provider [phone] Reason for Visit * Auth/Cert (Routine) Specialty Diagnoses / Procedures Referred By Theodore t Referred To Contact Diagnoses Anal spasm Fecal smearing Constipation, unspecified Rectal pain, fecal smearing Procedures PRO COLONOSCOPY, DIAGNOSTIC PRO COLONOSCOPY, BIOPSY PRO COLONOSCOPY, REMV LESN, SNARE COLONOSCOPY, DIAGNOSTIC (WRVU 3.26) Brandan Mcgovern MD [facility] [place] [address] [facility] Referral ID Status Reason Start Date Expiration Date Visits Re quested Visits Authorized [id number] 1 1 Encounter Details Date Type Department Care Team (Late st Contact Info) Description 08/30/2023 11:00 AM EST - 08/30/2023 12:00 PM EST Surgery [place] [address] Brandan Mcgovern MD [facility] [place] [address] COLONOSCOPY, POLYPECTOMY, REMOVAL LESION BY SNARE (WRVU [...] occurs, please contact your Doctor. Please call [phone] before 8pm Mon-Fri with problems, questions or concerns. If you call after 8pm or on weekends, call the Hospital at [phone] and ask to speak to the Mechanical Detailer litigation attorney and the lease operator will contact that person for you. When should you call for help? Call [phone] anytime you think you may need emergency [...] any problems. Where can you learn more? [facility] View your After Visit Summary and more online at [email or web address] If you would like to provide feedback about your hospital experience, please call the Office of Patient and Family Relations at . If you have received this After Visit Summary in error, please immediately return it in person to the department, or notify the [facility] Privacy Office by calling toll free at between the hours of 8AM and 5PM to arrange for our retrieval of the documents at no cost to you. Content Version: 12.2 ?? [phone] [employer]. Care instructions adapted under license by [facility]. If you have questions about a medical condition or this instruction, always ask your healthcare professional. [employer] disclaims any warranty or liability for your [...] evening. 04/17/2023 08/04/2024 nitroGLYcerin (NITROLINGUAL) 400 mcg/spray [place], Non-AerosolIndications:P roctalgia fugax,Fecal smearing,Constipation, unspecified constipation type [...] AM EST Office Visit Cardiology at [address] [address] Mushtaq Murphy APRN documented as of this encounter Procedures Procedure Name Priority Date/Time Associated Diagnosis Comments SPECIMEN TO PATHOLOGY Routine 08/30/2023 11:23 AM EST SURGICAL PATHOLOGY REPORT Routine 08/30/2023 11:21 AM EST COLONOSCOPY Routine 08/30/2023 10:57 AM EST Colonoscopy, Remv Avril, Snare ([id number]) 08/30/2023 10:44 AM EST Proctalgia fugax Fecal smearing Constipation, unspecified constipation type documented in this encounter Results * Specimen to Pathology (08/30/2023 11:23 AM EST) AP Specimen 08/30/2023 11:2 3 AM EST 08/30/2023 11:23 AM EST Narrative [facility] - 08/30/2023 11:23 AM EST Specimen requisition ordered. ??Separate Pathology report to follow Brandan Mcgovern MD PATHOLOGY/CYTOLOGY O JOSH Performing Organization Address [facility]/ZIP Co de Phone Number [facility] [place] [address] * Surgical Pathology Report (08/30/2023 11:21 AM EST) Final Diagnosis [id number] ? Location: 4T; EA12; A The signing pathologist has (i) examined the relevant preparation(s) for the specimen(s) and (ii) rendered or confirmed the diagnosis(es). . ?Surgical Pathology DIAGNOSIS A - Sigmoid colon polyp, resection (Multiple): - ??Tubular adenoma. CR-PX Electronically signed by: ?Blake ORTEGA PhD, Yulia Verified: ??09/08/2023 14:48 ??Pathologist Performed at: ??-[facility] [place], [place] [address] Tree Warden: Fercho Chan MD, AP, ??CLIA Certificate: [id number] SPECIMEN(S) SUBMITTED A - Sigmoid colon polyp, resection (Multiple) CLINICAL INFORMATION 73-year-old male, history of rectal pain SPECIMEN PROCESSING A - Labeled/Fixativ e: Sigmoid colon polyp, formalin. Quantity/Size: Single, 0.8 cm. Tissue Description: Soft, candelaria tissue. Sections/Proces sing: Submitted in toto ??in 1 cassette labeled A1. ??sdy 09/08/2023 2:48 PM EST [facility] GI Biopsy 08/30/2023 11:2 1 AM EST 08/30/2023 11:21 AM EST Brandan Mcgovern MD PATHOLOGY/CYTOLOGY O JOSH [facility] [place] [address] [place] [address] * COLONOSCOPY (08/30/2023 10:57 AM EST) [facility] Signature COLONOSCOPY [facility] Endoscopy Procedure Date: 08/30/2023 10:57 AM ? Patient Name: Korey Montoya ? Date of : 1950 ? Age: 73 ? Order #: [id number] ? Instrument Name: [id number] ? Procedure: ? Colonoscopy Indications: ? Rectal [...] preparation was evaluated ? using the BBPS ([place] Bowel ? Preparation Scale) with scores of: [...] RN) documented in this encounter Care Teams Commercial Property Administrator Relationship Specialty Start Date End Date Yoel Artis APRN [address] [place] [address] PCP - General Internal Medicine 11/18/22 07/29/24 documented as of this encounter
--- OUTSIDE RECORDS SUMMARY | 2024-09-26 10:19 | XMS_ITS | Encounter Summary ---
Author Organization Counts Include [address] [address] Care Team Providers Care Gameroom Technician Name Role Phone Yoel Artis Ute ALCALA Primary Care Provider Encounter Details Date Type Department Care Team (Late st Contact Info) Description 01/16/2024 5:46 PM EDT - 01/16/2024 11:59 PM EDT Hospital Encounter [facility] [address] [place] [address] Chaparro Montana MD [address] [place] [address] Discharge Disposition: Home Social History Tobacco Use [...] evening. 04/17/2023 08/04/2024 nitroGLYcerin (NITROLINGUAL) 400 mcg/spray [place], Non-AerosolIndications:P roctalgia fugax,Fecal smearing,Constipation, unspecified constipation type 1 spray to anus for proctalgia fugax as needed, not to exceed once daily 12 g 06/01/2023 08/04/2024 documented as of this encounter Plan of Treatment Upcoming Encounters Date Type Department Care Team (Late st Contact Info) Description 10/01/2024 10:00 AM EST Office Visit Cardiology at [address] [address] Mushtaq Murphy APRN documented as of this [...] In Lab Chaparro Montana MD MICROBIOLOGY - [facility] ORDERABLES [facility] [place] [address] documented in this encounter Visit Diagnoses Not on filedocumented in this encounter Care Teams Gameroom Technician Relationship Specialty Start Date End Date Yoel Artis APRN [address] [place] [address] PCP - General Internal Medicine 11/18/22 07/29/24 documented as of this encounter
--- OUTSIDE RECORDS SUMMARY | 2024-09-26 10:19 | XMS_ITS | Encounter Summary ---
[place] [address] Care Team Providers Care Cinder Crew Worker Name Role Phone Yoel Artis Ute ALCALA Primary Care Provider [phone] Encounter Details Date Type Department Care Team (Late st Contact Info) Description 07/28/2024 Interpretation Only [address] [address] Quinten Coffey MD [address] [place] [address] Social History Tobacco Use Types Packs/Day Years [...] AM EST Office Visit Cardiology at [address] [address] Mushtaq Murphy APRN documented as of this encounter Procedures Procedure Name Priority Date/Time Associated Diagnosis Comments XR CHEST ONE VIEW STAT 07/28/2024 10: 22 AM EST documented in this encounter Results * XR Chest One View (07/28/2024 10:22 AM EST) PT CLASS E RAD ADMITDTTM [id number] RAD PT RAD INFO [id number]^Alexx ^Quinten RAD EXAM DESC XCXR1^XR Chest 1 View^RIS RAD WORKSTATION ID [id number] [facility] Anatomical Region Laterality Modality Chest N/A [...] questions please contact the health care management associate that requested your imaging first. ? Narrative [...] have questions please contactthe health care management associate that requested your imaging first. Quinten Coffey MD IMG DX ORDERABLES documented in this encounter Visit Diagnoses Not on filedocumented in this encounter Care Teams Cinder Crew Worker Relationship Specialty Start Date End Date Yoel Artis APRN [address] [place] [address] PCP - General Internal Medicine 11/18/22 07/29/24 documented as of this encounter
--- OUTSIDE RECORDS SUMMARY | 2024-09-26 10:19 | XMS_ITS | Encounter Summary ---
Author Organization [facility] Address [facility] [place] [address] Care Team Providers Care Tool Room Machinist Name Role Phone Yoel Artis Ute ALCALA Primary Care Provider [phone] Encounter Details Date Type Department Care Team (Late st Contact Info) Description 07/29/2024 [place] [address] Susannah Watts PA [facility] [place] [address] Social History Tobacco Use Types Packs/Day Years Used Date Smoking Tobacco: Former Cigarettes Smokeless Tobacco: Never Alcohol Use Standard Drinks/Week Comments Not Currently 0 (1 standard drink = 0.6 oz pur e alcohol) [facility] Utilities Answer Date Recorded In the past 12 months has [employer], [employer], oil, or water [employer] threatened to shut off services in your [...] 10:00 AM EST Office Visit Cardiology at [facility] [address] [place] [address] Mushtaq Murphy APRN documented as of this encounter Procedures Procedure Name Priority Date/Time Associated Diagnosis Comments ECHOCARDIOGRAM TRANSTHORACIC Routine 07/30/2024 1:41 AM EST documented in this encounter Results * Echocardiogram Transthoracic (07/30/2024 1:41 AM EST) Anatomical Region Laterality Modality Cardiac Other 07/30/2024 1:41 AM EST Narrative 07/30/2024 8:23 AM EST [address] [place] [address] ? Echocardiogram Report Name: KOREY BERMUDEZ ? Study Date: 07/30/2024 01:41 AM : 1950 ? Height: 168 cm Age: 74 yrs ? Weight: 5.9 kg Gender: Male ?BSA: 0.63 m2 Performed By: Beatris Ching MD Reason For Study: STEMI, [place] History: ASCVD, HTN, HLD Interpreting Fellow: Beatris Ching. Interpretation Summary This is a limited study performed by a fellow commissioning specialist to evaluate for cardiogenic shock with [...] study available for comparison. Procedure Limited - 54800. Suboptimal quality. There is sinus bradycardia. Left [...] Procedure Note Kathleen Banda MD - 07/30/[address] [place] [address] Echocardiogram Report Name: BERMUDEZKOREY Study Date: 07/30/2024 01:41AM : 1950 Height: 168 cm Age: 74 yrs Weight: 5.9 kg Gender: Male BSA: 0.63 m2 Performed By: Beatris Ching MD Reason For Study: STEMI, [place] History: ASCVD, HTN, HLD Interpreting Fellow: Beatris Ching. Interpretation Summary This is a limited study performed by a fellow commissioning specialist to evaluate forcardiogenic shock with impella in. [...] study available for comparison. Procedure Limited - 27055. Suboptimal quality. There is sinus bradycardia. Left [...] on filedocumented in this encounter Care Teams Tool Room Machinist Relationship Specialty Start Date End Date Yoel Artis APRN [address] [place], [place] [id number] PCP - General Internal Medicine 11/18/22 07/29/24 documented as of this encounter
--- OUTSIDE RECORDS SUMMARY | 2024-09-26 10:19 | XMS_ITS | Encounter Summary ---
[place] [address] Care Team Providers Care Associate Professor Of Library Science Name Role Phone Yoel Artis APRN Primary Care Provider [phone] Reason for Referral * Consultation (Routine) - Closed Specialty Diagnoses / Procedures Referred By Theodore muro Referred To Contact Gastroenterology Diagnoses Anal spasm anal spasm Yoel Artis APRN [address] [place] [address] [facility] [place] [address] Referral ID Status Reason Start Date Expiration Date V isits Requested Visits Authorized [id number] Closed Consult, Test & Treat PCP Updated and/or Approved 05/26/2023 05/25/2024 6 6 Encounter Details Date Type Department Care Team (Late st Contact Info) Description 05/26/2023 Transcribe Orders eDH Incoming Referrals [phone] Yoel Artis APRN [address] [place] [address] Anal spasm Social History Tobacco [...] AM EST Office Visit Cardiology at [address] [address] Mushtaq Murphy APRN Scheduled Referrals Name Type Priority Associated Diagnoses Order Schedule Referral to Gastroenterology Outpatient Referral Routine Anal spasm Ordered: 05/26/2023 documented as of this encounter Visit Diagnoses Diagnosis Anal spasm documented in this encounter Care Teams Associate Professor Of Library Science Relationship Specialty Start Date End Date Yoel Artis APRN [address] [place] [address] PCP - General Internal Medicine 11/18/22 07/29/24 documented as of this encounter
--- OUTSIDE RECORDS SUMMARY | 2024-09-26 10:19 | XMS_ITS | Encounter Summary ---
Author Organization [facility] Address [facility] [place] [address] Care Team Providers Care Pest Control Worker Helper Name Role Phone Yoel Artis FREDRICK Primary Care Provider [phone] Encounter Details Date Type Department Care Team (Late st Contact Info) Description 07/29/2024 [place] [phone] Ivan Hernandez MD [facility] [place] [address] Social History Tobacco Use Types Packs/Day Years Used Date Smoking Tobacco: Former Cigarettes Smokeless Tobacco: Never Alcohol Use Standard Drinks/Week Comments Not Currently 0 (1 standard drink = 0.6 oz pur e alcohol) [facility] Utilities Answer Date Recorded In the past 12 months has e [employer], gas, oil, or water [employer] threatened to shut off services in your [...] any time in the past 12 m [facility], were you homeless or living [...] 9:50 AM Hospital to which patient presented: [facility] which patient presented[facility] ED Walk In Medical History (prior to [...] Unfractionated Heparin Plan STEMI Alert called: Yes Skin Tanner Activated by: Termite Control Service Representative Initial Disposition: Admit Skin Tanner documented in this encounter Plan of Treatment Upcoming Encounters Date Type Department Care Team (Late st Contact Info) Description 10/01/2024 10:00 AM EST Office Visit Cardiology at [address] [address] Mushtaq Murphy APRN documented as of this encounter Visit Diagnoses Not on filedocumented in this encounter Care Teams Pest Control Worker Helper Relationship Specialty Start Date End Date Yoel Artis APRN [address] [place] [address] PCP - General Internal Medicine 11/18/22 07/29/24 documented as of this encounter
--- OUTSIDE RECORDS SUMMARY | 2024-09-26 10:19 | XMS_ITS | Encounter Summary ---
[place] [address] Care Team Providers Care Group Segment Consultant Name Role Phone Yoel Artis APRN Primary Care Provider [phone] Reason for Referral * Consultation (Routine) - Closed Specialty Diagnoses / Procedures Referred By Theodore muro Referred To Contact Gastroenterology Diagnoses Anal spasm motility- anal spasms Yoel Artis APRN [address] [place] [address] [facility] [address] [place] [address] Referral ID Status Reason Start Date Expiration Date V isits Requested Visits Authorized [id number] Closed Consult, Test & Treat PCP Updated and/or Approved 11/18/2022 11/18/2023 6 6 Encounter Details Date Type Department Care Team (Late st Contact Info) Description 11/18/2022 Transcribe Orders eDH Incoming Referrals [phone] Yoel Artis APRN [address] [place] [address] Anal spasm Social History Tobacco [...] AM EST Office Visit Cardiology at [address] [address] Mushtaq Murphy APRN Scheduled Referrals Name Type Priority Associated Diagnoses Order Schedule Referral to Gastroenterology Outpatient Referral Routine Anal spasm Ordered: 11/18/2022 documented as of this encounter Visit Diagnoses Diagnosis Anal spasm documented in this encounter Care Teams Group Segment Consultant Relationship Specialty Start Date End Date Yoel Artis APRN [address] [place] [address] PCP - General Internal Medicine 11/18/22 07/29/24 documented as of this encounter
--- OUTSIDE RECORDS SUMMARY | 2024-09-26 10:19 | XMS_ITS | Encounter Summary ---
Author Organization [facility], Later [facility] [place] [address] Care Team Providers Care Food Safety Technician Name Role Phone Alexia Mtz SPEAKER MOUNTER Primary Care Provider [phone] Encounter Details Date Type Department Care Team (Late st Contact Info) Description 04/23/2024 Lab [place] [address] Alexia Mtz, SPEAKER MOUNTER [address] [place], [place] [id number] Elevated prostate specific antigen (PSA) Social History [...] AM EST Office Visit Cardiology at [address] [address] Mushtaq Murphy APRN documented as of this encounter Procedures Procedure Name Priority Date/Time Associated Diagnosis Comments PSA (ULTRASENSITIVE), TOTAL AND FREE Routine 04/23/2024 1:09 PM EDT Elevated prostate specific antigen (PSA) documented in this encounter Results * (ABNORMAL) PSA (Ultrasensitive), total and free (04/23/2024 1:09 PM EDT) Prostate Specific Antigen (Ultrasensitive) 5.24(H) 0.00-4.00 ng/mL ng/ml 04/23/2024 5:18 PM EDT [facility] Comment:The reference interv al (0 [...] Free 1.1 ng/ml 04/23/2024 5:18 PM EDT [facility] Comment:This result was gene rated using a Look[employer]io Osiel immunoassay. Results obtained from other methods or manufacturers cannot be used interchangeably with this method. PSA % Free 21 % 04/23/2024 5:18 PM EDT [facility] Comment: Probability of finding COLLECTION SYSTEMS ADMINISTRATOR on needle biopsy by age in years: % fPSA ? 50-59yrs ?? 60-69yrs ? >=70yrs ?? <=10 ?49.2 ?57.5 ?64.5 ?? 11-18 ? 26.9 ?33.9 ?40.8 ?? 19-25 ? 18.3 ?23.9 ?29.7 ?? >25 ?9.1 ?12.2 ?15.8 ?? This result was generated using a Look.io Osiel immunoassay. ??Results obtained from other methods or manufacturers cannot be used interchangeably with this method. Blood VENOUS BLOOD SPECIMEN / Unknown 04/23/2024 1:09 PM EDT 04/23/2024 4:50 PM EDT Alexia Mtz APRN CHEMISTRY ORDERABLES [facility] [place] [address] documented in this encounter Visit Diagnoses Diagnosis Elevated prostate specific antigen (PSA) documented in this encounter Care Teams Food Safety Technician Relationship Specialty Start Date End Date Alexia Mtz APRN [address] [place] [address] PCP - General Family Medicine 07/30/24 documented as of this encounter
--- OUTSIDE RECORDS SUMMARY | 2024-09-26 10:19 | XMS_ITS | Encounter Summary ---
Author Organization [place] [address] Care Team Providers Care Education Program Coordinator Name Role Phone Yoel Artis APRN Primary Care Provider Reason for Referral * Consultation (Routine) - Closed Specialty Diagnoses / Procedures Referred By Theodore muro Referred To Contact Gastroenterology Diagnoses Proctalgia fugax Fecal smearing Constipation, unspecified constipation type group Yoel Dangelo APRN [facility] [place] [address] Paulette Glynn, PhD [facility] [place] [address] Referral ID Status Reason Start Date Expiration Date V isits Requested Visits Authorized [id number] Closed Consult, Test & Treat 06/01/2023 05/31/2024 1 1 Reason for Visit * Consultation (Routine) - Closed Specialty Diagnoses / Procedures Referred By Theodore muro Referred To Contact Gastroenterology Diagnoses Anal spasm motility- anal spasms Yoel Artis APRN [address] [place] [address] [facility] [address] [place] [address] Referral ID Status Reason Start Date Expiration Date V isits Requested Visits Authorized [id number] Closed Consult, Test & Treat PCP Updated and/or Approved 11/18/2022 11/18/2023 6 6 Encounter Details Date Type Department Care Team (Latest Contact Info) Description 06/01/2023 8:00 AM EDT TH Visit (TeleHealth) [place] [address] Yoel Dangelo, CAREER TECHNICAL EDUCATION TEACHER [facility] [place] [address] Proctalgia fugax; Fecal smearing; Constipation, unspecified constipation [...] hear from us within 1 week: Clinic [phone] Motility Lab scheduling [phone] Endoscopy scheduling- [phone] Diagnostics: -Colonoscopy for rectal pain -Anorectal manometry [...] connection and our services, please visit the [facility] [place] website at: [email or web address]. Our hope is that through these classes, [...] your insurance company or the [facility] billing office ([email or web address]). Your insurance company may request a CPT code if you ask about [place]. [place] [address]. If you're interested in attending any of these classes or workshops, please reach out to our scheduling team via [facility] or phone ([phone]). You should start a fiber supplement if [...] Handout for Patients and Primary Care Providers [facility] Gastrointestinal Motility, Esophageal, and Swallowing Disorders [...] what is the impact? 15-20% of general [place] population has IBS or FD or both 2nd most common cause for lost work days (after common cold) in [place] Estimated $30 billion dollar cost to [place] economy per year These disorders can have [...] to you primary care provider and/or local cna per diem and share this document. Treatment of functional [...] - this approach benefits most patients OTC (ejbd-rfs-mouitwc) medications can be used for ongoing bothersome [...] All-Bran psyllium buds, Metamucil, Konsyl, bulk psyllium ([employer] and Vopium stores) Specifically we recommend starting Metamucil or [...] but convincing medical evidence is still lacking Hfqp-pnt-jvhmpvc supplements including probiotics are not typically evaluated [...] to decrease antibiotic-associated diarrhea and antibiotic-related infections Xnda-hvj-Iqnrfjs Medications for Functional Gut Disorders Based on [...] (GERD) Often a combination of anti-nausea medications (cqbu-gee-yawfjps or prescription) works better thanhigh doses of [...] for misuse/misinterpretation of this information Patient Resources [place] [employer] https://www.gastro.org/practice-guidance/ca-ewpdfeb-batqwx/ topic/oktpqgdva-hihgh-ppaysqff-ibs Badgut.org https://badgut.org/information-centre/t-p-ogquxsbfl-topics/ibs/ AboutIBS.org https://www.aboutibs.org/ Uptodate.com https://www.uptodate.com/contents/nhescqqsc-wivwj-dloxonxc-csasob-jbv-bjgsbt documented in this encounter Progress Notes * [...] Denies weight loss Last colo 2017 at [facility] with no polyps. Current [...] recommendations above. The patient was located in [place] at the time of their visit. TIME SPENT WITH PATIENT Time spent reviewing records prior to this encounter on day of appointment: 2 minutes Time spent during encounter with patient including counselin minutes Time spent documenting encounter after office visit: 7 minutes Yoel Dangelo APRN [facility] [place] [address] documented in this encounter Plan of Treatment Upcoming Encounters Date Type Department Care Team (Late st Contact Info) Description 10/01/2024 10:00 AM EST Office Visit Cardiology at [address] [place] [address] Mushtaq Murphy APRN Scheduled Orders Name Type [...] type documented in this encounter Care Teams Education Program Coordinator Relationship Specialty Start Date End Date Yoel Artis APRN [address] [place] [address] PCP - General Internal Medicine 11/18/22 07/29/24 documented as of this encounter
--- OUTSIDE RECORDS SUMMARY | 2024-09-26 10:19 | XMS_ITS | Encounter Summary ---
[place] [address] Care Team Providers Care Ladle Cleaner Name Role Phone Yoel Artis Ute ALCALA Primary Care Provider [phone] Reason for Visit * Auth/Cert (Routine) Specialty Diagnoses / Procedures Referred By Theodore t Referred To Contact Diagnoses STEMI (ST elevation myocardial infarction) STEMI Procedures ER IPI Vahe Marvin MD [facility] [place] [address] [facility] Referral ID Status Reason Start Date Expiration Date Visits Re quested Visits Authorized [id number] 1 1 Encounter Details Date Type Department Care Team (Late st Contact Info) Description 07/29/2024 12:00 PM EST - 07/29/2024 12:54 PM EST [place] [address] Vahe Marvin MD [facility] [place] [address] CARDIAC CATHETERIZATION Social History Tobacco Use Types Packs/Day Years Used Date Smoking Tobacco: Former Cigarettes Smokeless Tobacco: Never Alcohol Use Standard Drinks/Week Comments Not Currently 0 (1 standard drink = 0.6 oz pur e alcohol) [facility] Utilities Answer Date Recorded In [...] were you homeless or living in a snf (including now)? No 07/30/2024 DH IPV Inpatient [...] Korey Montoya Patient Age: 74 y.o. Language: Iranian Race: White Ethnicity: Not nor Admit date: [...] contact your inpatient physician through the [facility] Instrumental Music Teacher . Issues afterhours and on weekends will [...] Patient transferred via air ambulance to [facility] on 07/29 for LHC [...] Was transferred via air ambulance to [facility] for further management and [...] next year. Access was via right COMMERCIAL REAL ESTATE MANAGER and this sitewas clean, dry and [...] for Chest pain. Replaces: nitroGLYcerin 400 mcg/spray [place], Non-Aerosol 0.4 mg Quantity: 90 tablet Refills: [...] Refills: 0 STOPPED Medications nitroGLYcerin 400 mcg/spray [place], Non-Aerosol Commonly known as: NITROLINGUAL Replaced by: [...] of one year. After this time, your plate cleaner will determine if you need to continue [...] away. Stay on the phone. The emergency pressing machine operator will tell you what to [...] appointments: During 8am-5pm Tuesday through Tuesday call [phone] to speak with a nurse in the cardiology clinic All other times call [phone] and ask to speak to the research contracts supervisor content production specialist. Follow up Appointments: PCP Alexia Mtz, CELLAR HAND [phone]. Please call to establish a follow up appointment within 1-2 weeks of discharge. Cardiology. Referral to heart failure has been sent. General Instructions None Future Appointments and Orders Future Orders Complete By Expires Referral to Cardiac Rehab [[id number] Custom] As directed Process Instructions: If no progress note charted, please enter Clinical details in comments. Scheduling Instructions: Questions: My question or request is: STEMI, PCI- cardiac rehab at [facility] Referral to Cardiology [REF12 Custom] As [...] of one year. After this time, your plate cleaner will determine if you need to continue [...] away. Stay on the phone. The emergency pressing machine operator will tell you what to [...] appointments: During 8am-5pm Tuesday through Tuesday call [phone] to speak with a nurse in the cardiology clinic All other times call [phone] and ask to speak to the research contracts supervisor content production specialist. Follow up Appointments: PCP Alexia Mtz, CELLAR HAND [phone]. Please call to establish a follow up [...] Patient transferred via air ambulance to [facility] on 07/29 for LHC and LOW to LAD for 100% occlusion Social History: Pt lives with his in a 1 level home with 2 NAOMI. 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 He [...] Total time: 35 (tef) minutes Time IN/OUT: [id number] ZAIDA DUBOSE PT Pager: [phone] Physical Therapy Inpatient Rehabilitation Department * Yrn Velazquez MD - 08/03/2024 10:38 AM EST CV HOSPITALIST 2 - [facility] DAILY PROGRESS NOTE Page [phone] to reach a provider 04/04 Admit Date: [...] or before 29-JUL-2024) Lateral injury pattern ACUTE TN / STEMI Abnormal ECG When compared with [...] Compared to the overnight study by the content production specialist fellow the impella position is stable. 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 [facility] 07/29/24 Conclusions: * One vessel coronary artery disease (LAD) * Mild pulmonary hypertension * Elevated pulmonary capillary wedge pressure * Successful stent insertion of the proximal LAD lesion * See Dual Antiplatelet (DAPT) Recommendations above * Successful impella placement for cardiogenic shock. Telemetry: I have personally reviewed and interpreted the telemetry from the last 24 hours. [facility] Assessment: ASSESSMENT: Korey Montoya is a 74 y.o. male w/ PMH of hypertension, HLD, and BPH who presents for chief concern of chest pain after being found to have ST elevations on EKG. Patient transferred via air ambulance to [facility] on 07/29 for LHC [...] be determined OT: PCP Alexia Mtz, FREDRICK [phone] * Zaida Dubose, PT - 08/02/2024 2:08 PM EST Physical Therapy Evaluation Patient profile: Korey Montoya is a 74 y.o. male w/ PMH of hypertension, HLD, and BPH who presents for chief concern of chest pain after being found to have ST elevations on EKG. Patient transferred via air ambulance to [facility] on 07/29 for LHC and LOW to LAD for 100% occlusion Social History: Pt lives with his in a 1 level home with 2 NAOMI. 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 He [...] Total time: 37 (eval) minutes Time IN/OUT: [phone] ZAIDA DUBOSE PT Pager: [phone] Physical Therapy Inpatient Rehabilitation Department * Gagan Catherine MD - 08/02/2024 8:03 AM EST STAFF PROGRESS NOTE Critical Care Medicine Author: Gagan Catherine MD Patient seen and examined on critical care rounds. Koery Montoya is a 74 y.o. male with [...] Patient transferred via air ambulance to [facility] on 07/29 for LHC and LOW to LAD for 100% occlusion. TTE showed apical akinesis and inferior hypokinesis with EF 20%. RHC showed elevated filling pressures. Impella placed and P-level 6 at time of transfer to [facility]. CI initially 1.97, improved to [...] PCP: Alexia Mtz APRN PCP phone number: [phone] Date of Admission: 07/29/2024 ( Hospital Day 4 days ) Attending:Bridgette Stauffer MD ID: Korey Montoya is a 74 y.o. male w/ PMH of hypertension, HLD, and BPH on Hospital Day4 for chief concern of chest pain after being found to have ST elevations on EKG. Patient transferred via air ambulance to [facility] on 07/29 for LHC [...] 07/29/24 1621 PHART 7.48* 7.44 7.38 7.37 [id number] 29* 29* 34* 36 PO2ART 71* 109* 141* 71* XPM3ZGQ 20.6 19.4* 19.5* 20.4 VBG (Venous Blood Gas) Recent Labs 07/29/24 1401 PHVEN 7.30* PO2VEN 39 QRY7ZYJ 20.1* Mixed Venous Sat No results for input(s): E6FJNT1 in the last 168 hours. Objective: Vitals [...] 07/29/24 1621 PHART 7.48* 7.44 7.38 7.37 CRK2MAB 29* 29* 34* 36 PO2ART 71* 109* 141* 71* BYQ3DZD 20.6 19.4* 19.5* 20.4 VBG (Venous Blood Gas) Recent Labs 07/29/24 1401 PHVEN 7.30* PO2VEN 39 KVU0MVU 20.1* Mixed Venous Sat No results for input(s): V2EVNP2 in the last 168 hours. Microbiology: Microbiology Results (Last 30 days) Procedure Component Value Units Date/Time Blood culture [[id number]] Collected: 07/29/24 160 Lab Status: Preliminary result Specimen: Blood, Venous Updated: 08/01/24 170 Blood Culture No growth at 72 hours Blood culture [[id number]] Collected: 07/29/241607 Lab Status: Preliminary result Specimen: Blood, Venous Updated: 08/01/241700 Blood Culture No growth at 72 hours Imaging: Results for orders placed or performed during the hospital encounter of 07/29/24 XR Chest One View (Exam End: 07/29/2024 2:30 PM) Result Value WORKSTATION ID [id number] Impression 1. No pulmonary edema. 2. No pleural effusion. 3. No pneumothorax. Thank you for letting us participate in the care of this patient. If you are a health care provider and have any questions regarding this report, please contact the number below. For patients who have questions please contact the health clinical care manager that requested your imaging first. Electronically signed by: Chris Candelaria MD, [facility] ([phone]), at 07/29/2024 3:21 PM TTE ( 07/30/24) [...] Compared to the overnight study by the content production specialist fellow the impella position is stable. [...] Patient transferred via air ambulance to [facility] on 07/29 for LHC [...] Susannah Ornelas MD Internal Medicine, PGY-1 Cardiology, [facility] 08/02/24 12:45 PM CARDIOLOGY STAFF [...] floor. Krystal Parker MD, [facility], [facility] Staff Draw End Hand ux manager * Gagan Catherine MD - 08/01/2024 [...] Patient transferred via air ambulance to [facility] on 07/29 for LHC [...] support, which was weaned upon arrival to [facility] to norepinephrine 20and levo 0.04 [...] PCP: Alexia Mtz APRN PCP phone number: [phone] Date of Admission: 07/29/2024 ( Hospital Day 3 days ) Attending:Krystal Parker MD ID: Korey Montoya is a 74 y.o. male w/ PMH of hypertension, HLD, and BPH on Hospital Day3 for chief concern of chest pain after being found to have ST elevations on EKG. Patient transferred via air ambulance to [facility] on 07/29 for LHC [...] 07/29/24 1621 PHART 7.48* 7.44 7.38 7.37 GJU7HQF 29* 29* 34* 36 PO2ART 71* 109* 141* 71* HAS7HGC 20.6 19.4* 19.5* 20.4 VBG (Venous Blood Gas) Recent Labs 07/29/24 1401 PHVEN 7.30* PO2VEN 39 GTM6KOF 20.1* Mixed Venous Sat No results for input(s): H2VKPF7 in the last 168 hours. PA Catheter [...] 07/29/24 1621 PHART 7.48* 7.44 7.38 7.37 TGO1JDP 29* 29* 34* 36 PO2ART 71* 109* 141* 71* CNP0WNG 20.6 19.4* 19.5* 20.4 VBG (Venous Blood Gas) Recent Labs 07/29/24 1401 PHVEN 7.30* PO2VEN 39 GQA4ORJ 20.1* Mixed Venous Sat No results for input(s): A0SEJB8 in the last 168 hours. Microbiology: Microbiology Results (Last 30 days) Procedure Component Value Units Date/Time Blood culture [[id number]] Collected: 07/29/241607 Lab Status: Preliminary result Specimen: Blood, Venous Updated: 07/31/241700 Blood Culture No growth at 48 hours Blood culture [[id number]] Collected: 07/29/241607 Lab Status: Preliminary result Specimen: Blood, Venous Updated: 07/31/241700 Blood Culture No growth at 48 hours Imaging: Results for orders placed or performed during the hospital encounter of 07/29/24 XR Chest One View (Exam End: 07/29/2024 2:30 PM) Result Value WORKSTATION ID [id number] Impression 1. No pulmonary edema. 2. No pleural effusion. 3. No pneumothorax. Thank you for letting us participate in the care of this patient. If you are a health care provider and have any questions regarding this report, please contact the number below. For patients who have questions please contact the health clinical care manager that requested your imaging first. Electronically signed by: Chris Candelaria MD, [facility] ([phone]), at 07/29/2024 3:21 PM TTE ( 07/30/24) [...] Compared to the overnight study by the content production specialist fellow the impella position is stable. [...] Patient transferred via air ambulance to [facility] on 07/29 for LHC [...] answered. Krystal Parker MD, [facility], [facility] Staff Draw End Hand ux manager * Krystal Parker MD - 07/31/2024 [...] Patient transferred via air ambulance to [facility] on 07/29 for LHC and LOW to LAD for 100% occlusion. TTE showed apical akinesis and inferior hypokinesis with EF 20%. RHC showed elevated filling pressures. Impella placed and P-level 6 at time of transfer to [facility]. CI initially 1.97, improved to 2.2 After impella. Received about 3 L of fluid during procedural course. Patient initially required norepinephrine 30, epinephrine 10, and vasopressin 0.04 for hemodynamic support, which was weaned upon arrival to [facility] to norepinephrine 20and levo 0.04 [...] PCP: Alexia Mtz APRN PCP phone number: [phone] Date of Admission: 07/29/2024 ( Hospital Day 2 days ) Attending:Krystal Parker MD ID: Korey Montoya is a 74 y.o. male w/ PMH of hypertension, HLD, and BPH on Hospital Day2 for chief concern of chest pain after being found to have ST elevations on EKG. Patient transferred via air ambulance to [facility] on 07/29 for LHC [...] 0057 07/29/24 1621 PHART 7.44 7.38 7.37 FBM4EEJ 29* 34* 36 PO2ART 109* 141* 71* VAD0WVH 19.4* 19.5* 20.4 VBG (Venous Blood Gas) Recent Labs 07/29/24 1401 PHVEN 7.30* PO2VEN 39 TPG3GWB 20.1* Mixed Venous Sat No results for input(s): F4NRXK4 in the last 168 hours. PA Catheter [...] 0057 07/29/24 1621 PHART 7.44 7.38 7.37 RRD1RPI 29* 34* 36 PO2ART 109* 141* 71* BFZ3LCT 19.4* 19.5* 20.4 VBG (Venous Blood Gas) Recent Labs 07/29/24 1401 PHVEN 7.30* PO2VEN 39 IEO0TIT 20.1* Mixed Venous Sat No results for input(s): D5UZQI1 in the last 168 hours. Microbiology: Microbiology Results (Last 30 days) Procedure Component Value Units Date/Time Blood culture [[id number]] Collected: 07/29/241607 Lab Status: Preliminary result Specimen: Blood, Venous Updated: 07/30/24 170 Blood Culture No Growth at 18-24 hrs. Blood culture [[id number]] Collected: 07/29/241607 Lab Status: Preliminary result Specimen: Blood, Venous Updated: 07/30/241700 Blood Culture No Growth at 18-24 hrs. Imaging: Results for orders placed or performed during the hospital encounter of 07/29/24 XR Chest One View (Exam End: 07/29/2024 2:30 PM) Result Value WORKSTATION ID [id number] Impression 1. No pulmonary edema. 2. No pleural effusion. 3. No pneumothorax. Thank you for letting us participate in the care of this patient. If you are a health care provider and have any questions regarding this report, please contact the number below. For patients who have questions please contact the health clinical care manager that requested your imaging first. Electronically signed by: Chris Candelaria MD, [facility] ([phone]), at 07/29/2024 3:21 PM TTE ( 07/30/24) [...] Compared to the overnight study by the content production specialist fellow the impella position is stable. [...] Patient transferred via air ambulance to [facility] on 07/29 for LHC [...] work to optimize volume status while continuing gtdmwzc-slwoon-bdqizogscy therapies at this time. Obtain comprehensive TTE. [...] Patient transferred via air ambulance to [facility] on 07/29 for LHC and LOW to LAD for 100% occlusion. TTE showed apical akinesis and inferior hypokinesis with EF 20%. RHC showed elevated filling pressures. Impella placed and P-level 6 at time of transfer to [facility]. CI initially 1.97, improved to 2.2 After impella. Received about 3 L of fluid during procedural course. Patient initially required norepinephrine 30, epinephrine 10, and vasopressin 0.04 for hemodynamic support, which was weaned upon arrival to [facility] to norepinephrine 20and levo 0.04 [...] PCP: Yoel Artis APRN PCP phone number: [phone] Date of Admission: 07/29/2024 ( Hospital Day 1 day ) Attending:Aubree Silverio MD ID: Korey Montoya is a 74 y.o. male w/ PMH of hypertension, HLD, and BPH on Hospital Day1 for chief concern of chest pain after being found to have ST elevations on EKG. Patient transferred via air ambulance to [facility] on 07/29 for LHC [...] 0057 07/29/24 1621 PHART 7.44 7.38 7.37 LTW7DLU 29* 34* 36 PO2ART 109* 141* 71* ZLP7YXO 19.4* 19.5* 20.4 VBG (Venous Blood Gas) Recent Labs 07/29/24 1401 PHVEN 7.30* PO2VEN 39 MFK5ZHB 20.1* Lactate ( Last 12 hours) 1.3 >> 1.2 Mixed Venous Sat No results for input(s): D7ZNPN9 in the last 168 hours. PA Catheter [...] 0057 07/29/24 1621 PHART 7.44 7.38 7.37 OST9MKF 29* 34* 36 PO2ART 109* 141* 71* XQC4PIS 19.4* 19.5* 20.4 VBG (Venous Blood Gas) Recent Labs 07/29/24 1401 PHVEN 7.30* PO2VEN 39 AHB9DLP 20.1* Mixed Venous Sat No results for input(s): W2PBKR9 in the last 168 hours. Microbiology: Microbiology Results (Last 30 days) Procedure Component Value Units Date/Time Blood culture [[id number]] Collected: 07/29/24 1608 Lab Status: In process Specimen: Blood, Venous Updated: 07/29/24 1626 Blood culture [[id number]] Collected: 07/29/24 1608 Lab Status: In process Specimen: Blood, Venous Updated: 07/29/24 1615 Imaging: Results for orders placed or performed during the hospital encounter of 07/29/24 XR Chest One View (Exam End: 07/29/2024 2:30 PM) Result Value WORKSTATION ID [id number] Impression 1. No pulmonary edema. 2. No pleural effusion. 3. No pneumothorax. Thank you for letting us participate in the care of this patient. If you are a health care provider and have any questions regarding this report, please contact the number below. For patients who have questions please contact the health clinical care manager that requested your imaging first. [...] Patient transferred via air ambulance to [facility] on 07/29 for LHC [...] Patient transferred via air ambulance to [facility] on 07/29 for LHC [...] Was transferred via air ambulance to [facility] for further management and C demo nstrated 100% occlusion. No significant RCA, LMCA, or LCX disease. LOW placed in LAD with some residual distal disease meriting placement of overlapping distal stent. TTE showed apical akinesis and inferior hypokinesis with EF 20%. RHC showed elevated filling pressures. Impella placed and P-level 6 at time of transfer to [facility]. CI initially 1.97, improved to 2.2 After impella. Received about 3 L of fluid during procedural course. Patient initially required norepinephrine, epinephrine, and vasopressin for hemodynamic support, which was weaned upon arrival to [facility] to norepinephrine 20 and levo [...] (WRVU 4.57) performed by Brandan Mcgovern MD [facility] ENDOSCOPY Significant Family History: Family History [...] mouth. Past Week nitroGLYcerin (NITROLINGUAL) 400 mcg/spray [place], Non-Aerosol 1 spray to anus for proctalgia [...] 3.5 guiding catheter and a 3.5 Fr [facility] [place] [facility] 20 Mhz using Manual pullback. Imaging [...] for the procedure was Emergent. The [facility] indication for the procedure was [...] A premounted 3.00 x 22 mm Jeison Valencia (LOW) was deployed with a maximum inflation [...] atmospheres. A premounted 3.00 x 08 mm Jeiosn Valencia (LOW) was deployed with a maximum inflation [...] a limited study performed by a fellow content production specialist to evaluate for cardiogenic shock with [...] Compared to the overnight study by the content production specialist fellow the impella position is stable. [...] Patient transferred via air ambulance to [facility] on 07/29 for LHC [...] PCP: Yoel Artis APRN PCP phone number: [phone] Date of Admission: 07/29/2024 ( Hospital Day 0 days ) Attending:Aubree Silverio MD ID: Korey Montoya is a 74 y.o. male w/ PMH of hypertension, HLD, and BPH who presents for chief concern of chest pain after being found to have ST elevations on EKG. Patient transferred via air ambulance to [facility] on 07/29 for LHC and LOW to LAD for 100% occlusion. HPI: Korey Montoya is a 74 y.o. male w/ PMH of hypertension, HLD, and BPH who presents for chief concern of chest pain after being found to have ST elevations on EKG. Patient transferred via air ambulance to [facility] on 07/29 for LHC [...] Was transferred via air ambulance to [facility] for further management and [...] (WRVU 4.57) performed by Brandan Mcgovern MD [facility] ENDOSCOPY Family History Family History Problem [...] Blood Gas) No results for input(s): PHART, WJA0KKD, PO2ART, EYS1ROA, LACTATEVEN, BIA2JPC, PFRATIOART2 in the last 168 hours. VBG (Venous Blood Gas) Recent Labs 07/29/24 1401 PHVEN 7.30* PO2VEN 39 TYV9ZQP 20.1* Mixed Venous Sat No results for input(s): L1DAUM4 in the last 168 hours. PA Catheter [...] Blood Gas) No results for input(s): PHART, NWZ8NMJ, PO2ART, YHE6WTI, LACTATEVEN, KJP9HVA, PFRATIOART2 in the last 168 hours. VBG (Venous Blood Gas) Recent Labs 07/29/24 1401 PHVEN 7.30* PO2VEN 39 ZPD4MGJ 20.1* Mixed Venous Sat No results for input(s): G7UWEF5 in the last 168 hours. Microbiology: Microbiology [...] Patient transferred via air ambulance to [facility] on 07/29 for LHC. Found to have 100% occlusion of LAD for which he underwent LOW to LAD.Otherwise no other significant vessel disease. Fahad is currently hemodynamically tenuous but improving upon admission to [facility], requiring hemodynamic support with norepinephrine and vasopressin at time of admission along with mechanical support with Impella device. Reassuringly, he demonstrates decreasing pressor requirements since admission to [facility], with epinephrine completely weaned. He [...] Bernardo Amos MD Internal Medicine, PGY-3 Cardiology, [facility] 07/29/24 3:14 PM Cardiology Attending [...] MD, FACP, FACC Section of Cardiovascular Medicine [facility] Pretzel Twisting Machine Operatorregistered nurse nursery [facility] [employer] [facility] This patient meets or has met medical [...] to the planned procedure. Hand Hygiene: The material stockkeeper yard did perform hand hygiene prior to arterial [...] ease. Good wave form. Ivan Hernandez MD Community Service Worker Associated attestation - Rolando Yeh MD - [...] given to the patient. Heart diagram reviewed. aFhad was quite active prior to his [place]. 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 Given parameters for home exercise. He follows a heart healthy diet and is not overweight. His lipids are wnl. Participation in an outpatient cardiac rehabilitation program at [facility] was discussed. Patient agrees to a [...] MEDICARE Payor: [employer] MANAGED MEDICARE / Plan: CAD [facility] COMPLETE / Product Type: [...] Date of Discharge: 08/04/2024 Gaby Wong RN, [phone] * Initial Assessments - Char Meza OT - 08/03/2024 10:00 AM EST Occupational Therapy Evaluation Patient profile: Korey Monotya is a 74 y.o. male admitted on 07/29/2024 w/ PMH of hypertension, HLD, and BPH who presents for chief concern of chest pain after being found to have ST elevations onEKG. Patient transferred via air ambulance to [facility] on 07/29 for LHC and LOW to LAD for 100% occlusion. Past Medical History: Diagnosis Date ADHD HLD (hyperlipidemia) HTN (hypertension) Tremor Past Surgical History: Procedure Laterality Date HAND SURGERY PRO COLONOSCOPY, REMV LESN, SNARE N/A 08/30/2023 COLONOSCOPY, POLYPECTOMY, REMOVAL LESION BY SNARE (WRVU 4.57) performed by Brandan Mcgovern MD [facility] ENDOSCOPY Social History: Patient lives with his . Home Setup: 2 NAOMI to a 1 level home. DME: none Baseline ADL/Mobility: Independent with ADLs and IADLs. Enjoys walking. able assist as needed. Precautions/Special Considerations: Full code. Risk for falls. Subjective: I have access to an [employer] gym. (Educated to wait for MD to [...] evaluation only Total Minutes, Occupational Therapy: 14 ([id number] (evaluation)) 2017 OT Evaluation Code Rationale: Diagnosis [...] and measurable assessment of functional outcome. Pager: [phone] Char Meza OT 08/03/2024 Occupational Therapy Rehabilitation [...] (Interventions Implemented as Appropriate) Flowsheets (Taken 08/01/2024 8509) Outcome Summary: A+O, no pain. NSR. MAP [...] Procedure Note: Patient Name: Korey Montoya : [id number] MR#: [id number] Case Date: 07/31/2024 Instrumental Music Teacher: Surgeons and Role: * Maldonado Luis MD - Primary * Quinten Charles PA - Physician Flight Operations Manager Preoperative diagnosis: shock, impella Postoperative diagnosis: * same * Procedure(s) performed: Impella removal form right COMMERCIAL REAL ESTATE MANAGER Access: Right COMMERCIAL REAL ESTATE MANAGER A time-out was conducted prior to [...] surrogate would be surrogate decision maker per [place] surrogate decision making law. (Only good for 180 days) Any patient receiving care in [place] must abide by [place] law. The hierarchy for surrogate decision making [...] (i) The agent with financial power of insulation cupola charger or a conservator appointed in accordance with [...] were you homeless or living in a snf (including now)?: No In the past 12 [...] it) Home Address confirmed as: Mailing Address: [address] [address] Physical Address: [address] [place] [address] Social & Family Supports: All names listed [...] likely Health/Prescription Coverage: Primary Insurance: [facility]IC[facility] Payor: [facility] / Plan: [employer] MANAGED MEDICARE COMPLETE / Product Type: *No Product type* / Secondary Insurance: N/A ; Prescription Coverage: Yes Preferred Pharmacy: [address] - [address] [address] [place] Status: Patient is a : No Primary Care Provider confirmed: Alexia Mtz, CELLAR HAND [phone] Patient/Caregiver Goals of Treatment: return home Potential [...] 07/29/2024 6:25 PM EST Pt arrived from photonic laboratory technician @ 1400. CXR and EKG [...] Procedure Note: Patient Name: Korey Montoya : [id number] MR#: [id number] Case Date: 07/29/2024 Instrumental Music Teacher: Surgeons and Role: * Vahe Marvin MD - Primary * Susannah Watts PA - Physician Flight Operations Manager Preoperative diagnosis: STEMI Postoperative diagnosis: * STEMI, LAD Artery * * Cardiogenic Shock * Procedure(s) performed: [facility] Coronary angiogram Stent insertion coronary IVUS coronary Venous line insert [facility] Vacherie Colette Catheter Vascular closure device Ventricular assist [...] x 22 mm to 14 deonna JEISON Valencia with LIZ 3 flow. Residual distal disease at distal stent, overlapping distal stent was inserted with 3.0 x 8 mm JEISON Valencia. Systolic's in the 80's sustained. Patient re [...] AM EST Office Visit Cardiology at [address] [phone] Mushtaq Murphy, CELLAR HAND Scheduled Orders Name Type Priority Associated Diagnoses [...] CBC (with Diff) (08/04/2024 6:08 AM EST) [facility] White Blood Cell 7.27 4.00 [...] EST Bridgette Stauffer MD HEMATOLOGY ORDERABLE S [facility] [place] [address] * Magnesium (08/04/2024 6:08 AM EST) Magnesium 0.85 0.69 - 1.07 mMol/L 08/04/2024 7:07 AM [facility] Blood VENOUS BLOOD SPECIMEN / Unknown Venipuncture / Unknown 08/04/2024 6:08 AM EST 08/04/2024 6:19 AM EST Bridgette Stauffer MD CHEMISTRY ORDERABLES [facility] [place] [address] * Basic Metabolic Panel (08/04/2024 6:08 AM [...] AM EST Bridgette Stauffer MD CHEMISTRY ORDERABLES [facility] [place] [address] * (ABNORMAL) CBC (with Diff) (08/03/2024 5:16 [...] 0.10 x10(3)/mc L 08/03/2024 5:29 AM EST [facility] Immature Gran % 0.3 % 5:29 AM [facility] Immature Gran Absolute <0.04 0.00 - 0.04 x10(3)/mc L 08/03/2024 5:29 AM [facility] Blood VENOUS BLOOD SPECIMEN / Unknown Venipuncture / Unknown 08/03/2024 5:16 AM EST 08/03/2024 5:23 AM EST Bridgette Stauffer MD HEMATOLOGY ORDERABLE S Performing Organization Address City/[facility]/ZIP Co de Phone Number [facility] [place] [address] * Magnesium (08/03/2024 5:16 AM EST) Magnesium 0.89 0.69 - 1.07 mMol/L 08/03/2024 5:56 AM [facility] Blood VENOUS BLOOD SPECIMEN / Unknown Venipuncture / Unknown 08/03/2024 5:16 AM EST 08/03/2024 5:23 AM EST Bridgette Stauffer MD CHEMISTRY ORDERABLES Performing Organization Address City/[facility]/ZIP Co de Phone Number [facility] [place] [address] * (ABNORMAL) Basic Metabolic Panel (08/03/2024 5:16 [...] - 5.0 mMol/L 08/03/2024 5:56 AM EST [facility] Chloride 106 98 - 107 [...] AM EST Bridgette Stauffer MD CHEMISTRY ORDERABLES [facility] [place] [address] * POC, GLUCOSE (08/02/2024 7:47 AM EST) Glucometer, POC 89 65 - 199 mg/dL 08/02/2024 7:47 AM EST [facility] Comment:Supplemental ranges: <140 mg/dL before meals <180 mg/dL all other times of the day. Blood CAPILLARY BLOOD / Unknown 08/02/2024 7:47 AM EST 08/02/2024 7:47 AM EST Krystal Parker MD POINT OF CARE TEST O RDERABLES [facility] [place] [address] * (ABNORMAL) CBC (with Diff) (08/02/2024 4:20 [...] EST Bridgette Stauffer MD HEMATOLOGY ORDERABLE S [facility] [place] [address] * Magnesium (08/02/2024 4:20 AM EST) Magnesium 0.79 0.69 - 1.07 mMol/L 08/02/2024 5:06 AM [facility] Blood VENOUS BLOOD SPECIMEN / Unknown Venipuncture / Unknown 08/02/2024 4:20 AM EST 08/02/2024 4:37 AM EST Bridgette Stauffer MD CHEMISTRY ORDERABLES Performing Organization Address City/[facility]/ZIP Co de Phone Number [facility] [place] [address] * (ABNORMAL) Basic Metabolic Panel (08/02/2024 4:20 [...] - 15 mMol/L 08/02/2024 5:06 AM EST [facility] Calcium 8.1(L) 8.5 - 10.5 mg/dL 08/02/2024 5:06 AM EST [facility] Est Glomerular Filtration Rate - Male 91 mL/min/1. 73 m?? 08/02/2024 5:06 AM EST [facility] Comment: This patient's estimated GFR [...] AM EST Bridgette Stauffer MD CHEMISTRY ORDERABLES [facility] [place] [address] * Potassium (08/01/2024 8:39 PM EST) Potassium 4.0 3.5 - 5.0 mMol/L 08/01/2024 9:21 PM EST [facility] Blood VENOUS BLOOD SPECIMEN / Unknown Venipuncture / Unknown 08/01/2024 8:39 PM EST 08/01/2024 8:51 PM EST Aubree Silverio MD CHEMISTRY ORDERABL ES Performing Organization Address City/[facility]/ZIP Co de Phone Number [facility] [place] [address] * POC, GLUCOSE (08/01/2024 8:35 PM EST) Glucometer, POC 112 65 - 199 mg/dL 08/01/2024 8:36 PM EST [facility] Comment:Supplemental ranges: <140 mg/dL before meals <180 mg/dL all other times of the day. Blood CAPILLARY BLOOD / Unknown 08/01/2024 8:35 PM EST 08/01/2024 8:36 PM EST rKystal Parker MD POINT OF CARE TEST O RDERASHAY [facility] [place] [address] * POC, GLUCOSE (08/01/2024 4:55 PM EST) Glucometer, POC 99 65 - 199 mg/dL 08/01/2024 4:56 PM EST [facility] Comment:Supplemental ranges: <140 mg/dL before meals <180 mg/dL all other times of the day. Blood CAPILLARY BLOOD / Unknown 08/01/2024 4:55 PM EST 08/01/2024 4:56 PM EST Krystal Parker MD POINT OF CARE TEST O JOSH Performing Organization Address [facility]/ZIP Co de Phone Number [facility] [place] [address] * POC, GLUCOSE (08/01/2024 12:42 PM EST) Glucometer, POC 130 65 - 199 mg/dL 08/01/2024 12:43 PM EST [facility] Comment:Supplemental ranges: <140 mg/dL before meals <180 mg/dL all other times of the day. Blood CAPILLARY BLOOD / Unknown 08/01/2024 12:42 PM EST 08/01/2024 12:43 PM EST Krystal Parker MD POINT OF CARE TEST O JOSH [facility] [place] [address] * (ABNORMAL) Cooximetry, POC (08/01/2024 10:45 AM [...] POINT OF CARE TEST O RDERABLES [facility] [place] [address] * Potassium (08/01/2024 8:20 AM EST) Pathologist [facility] Potassium 4.0 3.5 - 5.0 mMol/L 08/01/2024 10:17 AM EST [facility] Blood ARTERIAL BLOOD / Unknown Venipuncture / Unknown 08/01/2024 8:20 AM EST 08/01/2024 8:30 AM EST Aubree Silverio MD CHEMISTRY ORDERABL ES [facility] [place] [address] * POC, GLUCOSE (08/01/2024 7:44 AM EST) [facility] Glucometer, POC 86 65 - 199 mg/dL 08/01/2024 7:44 AM [facility] Comment:Supplemental ranges: <140 mg/dL before meals <180 mg/dL all other times of the day. Blood CAPILLARY BLOOD / Unknown 08/01/2024 7:44 AM EST 08/01/2024 7:44 AM EST Krystal Parker MD POINT OF CARE TEST O RDERABLES [facility] [place] [address] * (ABNORMAL) CBC (with Diff) (08/01/2024 4:18 AM EST) [facility] White Blood Cell 8.51 4.00 [...] Gran % 0.4 % 4:53 AM EST [facility] Immature Gran Absolute <0.04 0.00 - 0.04 x10(3)/mc L 08/01/2024 4:53 AM [facility] Blood VENOUS BLOOD SPECIMEN / Unknown Venipuncture / Unknown 08/01/2024 4:18 AM EST 08/01/2024 4:29 AM EST Bridgette Stauffer MD HEMATOLOGY ORDERABLE S Performing Organization Address [facility] Co de Phone Number [facility] [place] [address] * Magnesium (08/01/2024 4:18 AM EST) Pathologist [facility] Magnesium 0.74 0.69 - 1.07 mMol/L 08/01/2024 5:00 AM [facility] Blood VENOUS BLOOD SPECIMEN / Unknown Venipuncture / Unknown 08/01/2024 4:18 AM EST 08/01/2024 4:29 AM EST Bridgette Stauffer MD CHEMISTRY ORDERABLES Performing Organization Address City/[facility] Co de Phone Number [facility] [place] [address] * (ABNORMAL) Basic Metabolic Panel (08/01/2024 4:18 [...] AM EST Bridgette Stauffer MD CHEMISTRY ORDERABLES [facility] [place] [address] * POC, GLUCOSE (07/31/2024 8:41 PM EST) Glucometer, POC 73 65 - 199 mg/dL 07/31/2024 8:41 PM EST [facility] Comment:Supplemental ranges: <140 mg/dL before meals <180 mg/dL all other times of the day. Blood CAPILLARY BLOOD / Unknown 07/31/2024 8:41 PM EST 07/31/2024 8:41 PM EST Krystal Parker MD POINT OF CARE TEST O RDERABLES Performing Organization Address [facility]/State/ZIP Co de Phone Number [facility] [place] [address] * CARDIAC CATHETERIZATION (07/31/2024 5:53 PM EST) Anatomical Region Laterality Modality Other Narrative 08/01/2024 12:37 PM EST ?[facility] ? Cardiac Catheterization/Intervention Report ? Patient Name: Korey Montoya Kyrie. ? Procedure Date: 07/31/2024 ? A #: [id number] ? Primary Physician: Janelle, Maldonado T ? Case #: [id number] ? File Name: [id number] ? Catheterization Order Number: [id number] ? [facility] ? Final Report [place], [place] ? Patient Name: ? Korey Montoya ?ID#: ?[id number] ? : ?1950 ? Procedure Date: ? July 31, 2024 ?Case #: ? [id number] ? Room: ? 1 ? Case [...] Comments: ?Impella removed from the right COMMERCIAL REAL ESTATE MANAGER with deployment of Perclose and ?Angioseal. [...] Korey Montoya Procedure Date: 07/31/2024 A #: [id number] Primary Physician: Maldonado Luis Case #: [id number] File Name: [id number] Catheterization Order Number: [id number] [facility] FinalReport [place], [place] Patient Name: Korey Montoya ID#:[id number] :1950 Procedure Date: July 31, 2024 Case [...] was designated as ASA Class IV. The [facility] clinical frailtyscale is 4: Vulnerable. Diagnostic Tests: [...] Comments: Impella removed from the right COMMERCIAL REAL ESTATE MANAGER with deployment of Perclose and Angioseal. [...] * POC, GLUCOSE (07/31/2024 11:04 AM EST) [facility] Glucometer, POC 82 65 - 199 mg/dL 07/31/2024 11:04 AM EST [facility] Comment:Supplemental ranges: <140 mg/dL before meals <180 mg/dL all other times of the day. Blood CAPILLARY BLOOD / Unknown 07/31/2024 11:04 AM EST 07/31/2024 11:04 AM EST Krystal Parker MD POINT OF CARE TEST O RDERABLES [facility] [place] [address] * (ABNORMAL) Blood Gas, Arterial POC (07/31/2024 [...] CARE TEST O RDERABLES Performing Organization Address City/[facility]/ZIP Co de Phone Number [facility] [place] [address] * POC, GLUCOSE (07/31/2024 7:47 AM EST) [facility] Glucometer, POC 82 65 - 199 mg/dL 07/31/2024 7:53 AM [facility] Comment:Supplemental ranges: <140 mg/dL before meals <180 mg/dL all other times of the day. Blood CAPILLARY BLOOD / Unknown 07/31/2024 7:47 AM EST 07/31/2024 7:53 AM EST Krystal Parker MD POINT OF CARE TEST O RDERABLES Performing Organization Address City/[facility]/ZIP Co de Phone Number [facility] [place] [address] * (ABNORMAL) CBC (with Diff) (07/31/2024 1:08 [...] EST Bridgette Stauffer MD HEMATOLOGY ORDERABLE S [facility] [place] [address] * Magnesium (07/31/2024 1:08 AM EST) Magnesium 0.89 0.69 - 1.07 mMol/L 07/31/2024 1:46 AM EST [facility] Blood VENOUS BLOOD SPECIMEN / Unknown Venipuncture / Unknown 07/31/2024 1:08 AM EST 07/31/2024 1:18 AM EST Bridgette Stafufer MD CHEMISTRY ORDERABLES [facility] [address] [place] [address] * (ABNORMAL) Basic Metabolic Panel (07/31/2024 1:08 AM EST) Pathologist [facility] Glucose 97 65 - 199 mg/dL 07/31/2024 1:46 AM EST [facility] Comment:Glucose Concentratio n >=200 mg/dL plus symptoms is consistent with Diabetes Mellitus. Blood Urea Nitrogen 11 10 - 20 mg/dL 07/31/2024 1:46 AM [facility] Creatinine 0.96 0.80 - 1.50 mg/dL 07/31/2024 1:46 AM EST [facility] Sodium 140 135 - 145 [...] AM EST Bridgette Stauffer MD CHEMISTRY ORDERABLES [facility] [place] [address] * (ABNORMAL) Hepatic Function Panel (07/31/2024 1:08 [...] Parker MD CHEMISTRY ORDERABLES Performing Organization Address [facility]/ZIP Co de Phone Number [facility] [place] [address] * POC, GLUCOSE (07/30/2024 8:03 PM EST) Glucometer, POC 86 65 - 199 mg/dL 07/30/2024 8:03 PM EST [facility] Comment:Supplemental ranges: <140 mg/dL before meals <180 mg/dL all other times of the day. Blood CAPILLARY BLOOD / Unknown 07/30/2024 8:03 PM EST 07/30/2024 8:03 PM EST Krystal Praker MD POINT OF CARE TEST O RDERABLES Performing Organization Address [facility]/ZIP Co de Phone Number [facility] [place] [address] * Potassium (07/30/2024 8:03 PM EST) Pathologist [facility] Potassium 3.8 3.5 - 5.0 mMol/L 07/30/2024 9:13 PM EST [facility] Blood VENOUS BLOOD SPECIMEN / Unknown Venipuncture / Unknown 07/30/2024 8:03 PM EST 07/30/2024 8:22 PM EST Aubree Silverio MD CHEMISTRY ORDERABL ES Performing Organization Address City/[facility]/ZIP Co de Phone Number [facility] [place] [address] * POC, GLUCOSE (07/30/2024 6:23 PM EST) Glucometer, POC 93 65 - 199 mg/dL 07/30/2024 6:24 PM EST [facility] Comment:Supplemental ranges: <140 mg/dL before meals <180 mg/dL all other times of the day. Blood CAPILLARY BLOOD / Unknown 07/30/2024 6:23 PM EST 07/30/2024 6:24 PM EST Krystal Parker MD POINT OF CARE TEST O RDERABLES Performing Organization Address [facility] Co de Phone Number [facility] [place] [address] * POC, GLUCOSE (07/30/2024 5:08 PM EST) Glucometer, POC 78 65 - 199 mg/dL 07/30/2024 5:08 PM EST [facility] Comment:Supplemental ranges: <140 mg/dL before meals <180 mg/dL all other times of the day. Blood CAPILLARY BLOOD / Unknown 07/30/2024 5:08 PM EST 07/30/2024 5:08 PM EST Krystal Parker MD POINT OF CARE TEST O JOSH Performing Organization Address [facility] Co de Phone Number [facility] [place] [address] * (ABNORMAL) Phosphorus (07/30/2024 3:08 PM EST) Phosphorus 2.1(L) 2.5 - 4.5 mg/dL 07/30/2024 3:58 PM EST [facility] Blood VENOUS BLOOD SPECIMEN / Unknown Venipuncture / Unknown 07/30/2024 3:08 PM EST 07/30/2024 3:12 PM EST Aubree Silverio MD CHEMISTRY ORDERABL ES Performing Organization Address [facility] Co de Phone Number [facility] [place] [address] * Magnesium (07/30/2024 3:08 PM EST) Magnesium 0.90 0.69 - 1.07 mMol/L 07/30/2024 3:58 PM [facility] Blood VENOUS BLOOD SPECIMEN / Unknown Venipuncture / Unknown 07/30/2024 3:08 PM EST 07/30/2024 3:12 PM EST Aubree Silverio MD CHEMISTRY ORDERABL ES [facility] [place] [address] * (ABNORMAL) Basic Metabolic Panel (07/30/2024 3:08 [...] EST Aubree Silverio MD CHEMISTRY ORDERABL ES [facility] [place] [address] * ECHO LMTD W CONTRAST W LMTD SPEC DOPP COLOR DOPP (07/30/2024 11:42 AM EST) Anatomical Region Laterality Modality Cardiac Other 07/30/2024 10:2 2 AM EST Narrative 07/30/2024 12:34 PM EST [address] [place] [address] ? Echocardiogram Report Name: KOREY MONTOYA ? Study Date: 07/30/2024 10:22 AMBP: 124/66 mmHg : 1950 ? Height: 168 cm ? Account: [id number] Age: 74 yrs ? Weight: 65 kg Gender: Male ?BSA: 1.7 m2 Ordering Physician: Aubree Silverio MD Referring Physician: CHAPARRO FERRERA Performed By: OMERO Millan Reason For Study: ST elevation myocardial infarction involving left anterior descending (LAD) coronary artery Interpreting Fellow: Ivan Hernandez. Exam Location: [facility]. Interpretation Summary Left ventricle is [...] Compared to the overnight study by the content production specialist fellow the impella position is stable. 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 Procedure Limited - 41128. Image enhancement Definity was used for both [...] Note Kathleen Banda MD - 07/30/2024 1 [place] [address] Echocardiogram Report Name: KOREY MONTOYA Study Date: 0:22 AMBP: 124/66 mmHg : 1950 Height: 168 cm Account: [id number] Age: 74 yrs Weight: 65 kg Gender: Male BSA: 1.7 m2 Ordering Physician: Aubree Silverio MD Referring Physician: CHAPARRO FERRERA Performed By: OMERO Millan Reason For Study: ST elevation myocardial infarction involving leftanterior descending (LAD) coronary artery Interpreting Fellow: Ivan Hernandez. Exam Location: [facility]. Interpretation Summary Left ventricle is [...] Compared to the overnight study by the content production specialist fellow the impella positionis stable. The global left ventricular systolic function has improvedpredominantly via recruitment outside the LAD territory which remains akinetic. Procedure Limited - 47305. Image enhancement Definity was used for both [...] - 199 mg/dL 07/30/2024 11:17 AM EST [facility] Comment:Supplemental ranges: <140 mg/dL before meals <180 mg/dL all other times of the day. Blood CAPILLARY BLOOD / Unknown 07/30/2024 11:17 AM EST 07/30/2024 11:17 AM EST Aubree Silverio MD POINT OF CARE TEST ORDERABLES [facility] [place] [address] * (ABNORMAL) Blood Gas, Arterial POC (07/30/2024 [...] - 145 mmol/L 07/30/2024 8:17 AM EST [facility] Potassium, Arterial 3.9 3.5 - [...] Silverio MD POINT OF CARE TEST ORDERABLES [facility] [place] [address] * (ABNORMAL) Troponin - Single (07/30/2024 8:09 AM EST) Troponin-T, High Sensitivity 8,651(H) <=22 ng/L 07/30/2024 9:06 AM EST [facility] Comment: This patient's troponin T [...] troponin value can be found in the [facility] Test Catalog Troponin - [email or web address] Reference: Fourth Lenore Definition of Myocardial Infarction. Journal of the [place] [employer] 2018;72:7678-2891 Blood VENOUS BLOOD SPECIMEN / Unknown Venipuncture / Unknown 07/30/2024 8:09 AM EST 07/30/2024 8:26 AM EST Aubree Silverio MD CHEMISTRY ORDERABL ES Performing Organization Address [facility] Co de Phone Number [facility] [place] [address] * POC, GLUCOSE (07/30/2024 7:40 AM EST) [facility] Glucometer, POC 111 65 - 199 mg/dL 07/30/2024 7:40 AM EST [facility] Comment:Supplemental ranges: <140 mg/dL before meals <180 mg/dL all other times of the day. Blood CAPILLARY BLOOD / Unknown 07/30/2024 7:40 AM EST 07/30/2024 7:40 AM EST Aubree Silverio MD POINT OF CARE TEST ORDERABLES Performing Organization Address City/[facility]/ZIP Co de Phone Number [facility] [place] [address] * (ABNORMAL) CBC (with Diff) (07/30/2024 2:11 AM EST) White Blood Cell 11.25(H) 4.00 - 9.50 x10(3)/mc L 07/30/2024 2:33 AM EST [facility] Red Blood Cell 4.50(L) 4.58 [...] 0.90 x10(3)/mc L 07/30/2024 2:33 AM EST [facility] Eos % 0.0 % 07/30/2024 [...] EST Bridgette Stauffer MD HEMATOLOGY ORDERABLE S [facility] [place] [address] * Magnesium (07/30/2024 2:11 AM EST) Magnesium 1.01 0.69 - 1.07 mMol/L 07/30/2024 2:51 AM [facility] Blood VENOUS BLOOD SPECIMEN / Unknown Venipuncture / Unknown 07/30/2024 2:11 AM EST 07/30/2024 2:22 AM EST Bridgette Stauffer MD CHEMISTRY ORDERABLES [facility] [place] [address] * (ABNORMAL) Basic Metabolic Panel (07/30/2024 2:11 [...] Stauffer MD CHEMISTRY ORDERABLES Performing Organization Address City/[facility]/ZIP Co de Phone Number [facility] [place] [address] * (ABNORMAL) Cooximetry, POC (07/30/2024 1:00 AM EST) pO2, Coox 28 mmHg 07/30/2024 1:03 AM [facility] Hemoglobin, Coox 12.7(L) 13.7 - 16.5 g/dL 07/30/2024 1:03 AM EST [facility] Oxyhemoglobin, Coox 54.9 % 07/30/2024 1:03 AM EST [facility] Carboxyhemoglo bin, Coox 1.0 % 07/30/2024 1:03 AM EST [facility] Comment: Nonsmokers: 0.5-1.5% COHB ?? Smokers: Variable ??but usually less than 10% ?? Toxic: 20-30% COHB ?? Lethal: Greater than 60% COHB Methemoglobin, Coox 0.0 <=1.5 % 07/30/2024 1:03 AM EST [facility] Blood (Mixed Venous) 07/30/2024 1:00 AM EST 07/30/2024 1:03 AM EST Aubree Silverio MD POINT OF CARE TEST ORDERABLES Performing Organization Address [facility] Co de Phone Number [facility] [place] [address] * (ABNORMAL) Blood Gas, Arterial POC (07/30/2024 [...] Rate 2.0 L/min 07/30/2024 12:58 AM EST [facility] IONIZED CALCIUM, ARTERIAL 1.12(L) 1.15 - 1.33 mmol/L 07/30/2024 12:58 AM EST [facility] Glucose, Arterial 184 65 - 199 mg/dL 07/30/2024 12:58 AM EST [facility] Comment:Glucose Concentratio n >=200 mg/dL plus symptoms is consistent with Diabetes Mellitus. Blood ARTERIAL BLOOD / Unknown 07/30/2024 12:57 AM EST 07/30/2024 12:58 AM EST Aubree Silverio MD POINT OF CARE TEST ORDERABLES [facility] [place] [address] * (ABNORMAL) Troponin - Single (07/29/2024 10:31 PM EST) Pathologist [facility] Troponin-T, High Sensitivity >10,000(H ) <=22 ng/L 07/29/2024 11:03 PM EST [facility] Comment: This patient's troponin T [...] troponin value can be found in the [facility] Test Catalog Troponin - https://one-.testcatalog.org/catalogs/565/files/24744 Reference: Fourth Lenore Definition of Myocardial Infarction. Journal of the [place] [employer] 2018;72:3634-7687 Blood VENOUS BLOOD SPECIMEN / Unknown Venipuncture / Unknown 07/29/2024 10:31 PM EST 07/29/2024 10:36 PM EST Yrn Velazquez MD CHEMISTRY ORDERABL ES Performing Organization Address City/[facility]/ZIP Co de Phone Number [facility] [place] [address] * Potassium (07/29/2024 8:11 PM EST) Potassium 4.1 3.5 - 5.0 mMol/L 07/29/2024 8:52 PM EST [facility] Blood VENOUS BLOOD SPECIMEN / Unknown Venipuncture / Unknown 07/29/2024 8:11 PM EST 07/29/2024 8:16 PM EST Aubree Silverio MD CHEMISTRY ORDERABL ES Performing Organization Address [facility]/ZIP Co de Phone Number [facility] [place] [address] * (ABNORMAL) Troponin - Single (07/29/2024 8:11 PM EST) Troponin-T, High Sensitivity >10,000(H ) <=22 ng/L 07/29/2024 8:52 PM EST [facility] Comment: This patient's troponin T [...] troponin value can be found in the [facility] Test Catalog Troponin - https://one-.testcatalog.org/catalogs/565/files/51466 Reference: Fourth Lenore Definition of Myocardial Infarction. Journal of the [place] [employer] 2018;72:5333-2713 Blood VENOUS BLOOD SPECIMEN / Unknown Venipuncture / Unknown 07/29/2024 8:11 PM EST 07/29/2024 8:16 PM EST Aubree Silverio MD CHEMISTRY ORDERABL ES Performing Organization Address City/[facility]/ZIP Co de Phone Number [facility] [place] [address] * (ABNORMAL) Phosphorus (07/29/2024 8:11 PM EST) Phosphorus 2.1(L) 2.5 - 4.5 mg/dL 07/29/2024 8:52 PM EST [facility] Blood VENOUS BLOOD SPECIMEN / Unknown Venipuncture / Unknown 07/29/2024 8:11 PM EST 07/29/2024 8:16 PM EST Aubree Silverio MD CHEMISTRY ORDERABL ES Performing Organization Address City/[facility]/ZIP Co de Phone Number [facility] [place] [address] * POC, GLUCOSE (07/29/2024 8:09 PM EST) Glucometer, POC 142 65 - 199 mg/dL 07/29/2024 8:09 PM EST [facility] Comment:Supplemental ranges: <140 mg/dL before meals <180 mg/dL all other times of the day. Blood CAPILLARY BLOOD / Unknown 07/29/2024 8:09 PM EST 07/29/2024 8:09 PM EST Aubree Silverio MD POINT OF CARE TEST ORDERABLES Performing Organization Address City/[facility]/ZIP Co de Phone Number [facility] [place] [address] * ABORH RECHECK (07/29/2024 6:43 PM EST) Pathologist [facility] ABORH Recheck AB POSITIVE 07/29/2024 10:13 PM EST [facility] Blood VENOUS BLOOD SPECIMEN / Unknown Venipuncture / Unknown 07/29/2024 6:43 PM EST 07/29/2024 7:15 PM EST Aubree Silverio MD BLOOD BANK LAB ORD ERABLES Performing Organization Address City/[facility] Co de Phone Number [facility] [place] [place] [address] * POC, GLUCOSE (07/29/2024 5:57 PM EST) [facility] Glucometer, POC 166 65 - 199 mg/dL 07/29/2024 5:57 PM EST [facility] Comment:Supplemental ranges: <140 mg/dL before meals <180 mg/dL all other times of the day. Blood CAPILLARY BLOOD / Unknown 07/29/2024 5:57 PM EST 07/29/2024 5:57 PM EST Aubree Silverio MD POINT OF CARE TEST ORDERABLES Performing Organization Address City/[facility]/ZIP Co de Phone Number [facility] [place] [address] * Type and screen ([facility]/CGP/MAGALIE) (07/29/2024 5:56 PM EST) ABORH Type AB POSITIVE 07/29/2024 9:44 PM EST [facility] PATIENT HISTORY Not Found 07/29/2024 9:44 PM EST [facility] Expires at [id number] on: 08/01/2024 07/29/2024 9:44 PM EST [facility] ANTIBODY SCREEN AUTOMATED Negative 07/29/2024 9:44 PM EST [facility] T&S only valid at [facility] 07/29/2024 9:44 PM EST [facility] Blood VENOUS BLOOD SPECIMEN / Unknown Venipuncture / Unknown 07/29/2024 5:56 PM EST 07/29/2024 6:07 PM EST Narrative [facility] - 07/29/2024 9:44 PM EST This Type and Screen result is only valid at the [facility] Aubree Silverio MD BLOOD BANK LAB ORD ERABLES [facility] [place] [place] [address] * (ABNORMAL) Troponin - Single (07/29/2024 4:52 PM EST) [facility] Troponin-T, High Sensitivity >10,000(H ) <=22 ng/L 07/29/2024 5:25 PM EST [facility] Comment: This patient's troponin T [...] troponin value can be found in the [facility] Test Catalog Troponin - https://[facility]-.testcatalog.org/catalogs/565/files/06806 Reference: Fourth Lenore Definition of Myocardial Infarction. Journal of the [place] College [employer]iology 2018;72:7534-6766 Blood VENOUS BLOOD SPECIMEN / Unknown Venipuncture / Unknown 07/29/2024 4:52 PM EST 07/29/2024 4:57 PM EST Aubree Silverio MD CHEMISTRY ORDERABL ES [facility] [place] [address] * EKG 12 Lead (07/29/2024 4:21 PM EST) Ventricular rate 72 BPM MUSE SYSTEM Atrial Rate 72 BPM MUSE SYSTEM P-R Interval 168 ms MUSE SYSTEM QRS Duration 82 ms MUSE SYSTEM Q-T Interval 392 ms MUSE SYSTEM QTC Calculated (Bezet) 429 ms MUSE SYSTEM Calculated P Candia 71 degrees MUSE SYSTEM Calculated R Candia 77 degrees MUSE SYSTEM Calculated T Candia 28 degrees MUSE SYSTEM INTERPRETATION Sinus rhythm with Premature supraventricular complexes and Occasional Premature ventricular complexes Low voltage QRS 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) Lateral injury pattern ACUTE TN / STEMI Abnormal ECG When compared with ECG of 29-JUL-2024 13:43, (unconfirmed) Serial changes of evolving Anteroseptal infarct Present Confirmed by MD Marcus, Roverto (1963) on 07/31/2024 5:30:06 AM MUSE SYSTEM 07/29/2024 4:21 PM EST 07/31/2024 5:30 AM EST Aubree Silverio MD ECG ORDERABLES Performing Organization Address [facility] Co de Phone Number MUSE SYSTEM * (ABNORMAL) Blood Gas, Arterial POC (07/29/2024 4:21 PM EST) pH, Arterial 7.37 7.35 - 7.45 07/29/2024 4:22 PM EST [facility] PCO2, Arterial 36 35 - 45 mmHg 07/29/2024 4:22 PM EST [facility] PO2, Arterial 71(L) 85 - 104 mmHg 07/29/2024 4:22 PM EST [facility] Bicarbonate, Arterial 20.4 20.0 - 26.0 mmol/L 07/29/2024 4:22 PM EST [facility] Base Excess, Arterial -4.8(L) -3.0 [...] OF CARE TEST ORDERABLES Performing Organization Address City/[facility]/ZIP Co de Phone Number [facility] [place] [address] * POC, GLUCOSE (07/29/2024 4:19 PM EST) Glucometer, POC 185 65 - 199 mg/dL 07/29/2024 4:19 PM EST [facility] Comment:Supplemental ranges: <140 mg/dL before meals <180 mg/dL all other times of the day. Blood CAPILLARY BLOOD / Unknown 07/29/2024 4:19 PM EST 07/29/2024 4:19 PM EST Aubree Silverio MD POINT OF CARE TEST ORDERABLES Performing Organization Address City/[facility]/ZIP Co de Phone Number [facility] [place] [address] * Blood culture (07/29/2024 4:08 PM EST) Blood Culture No growth at 120 hours 08/03/2024 5:01 PM EST [facility] Blood VENOUS BLOOD SPECIMEN / Unknown Venipuncture / Unknown 07/29/2024 4:08 PM EST 07/29/2024 4:15 PM EST Aubree Silverio MD MICROBIOLOGY - BLO OD ORDERABLES [facility] [place] [address] * Blood culture (07/29/2024 4:08 PM EST) Blood Culture No growth at 120 hours 08/03/2024 5:01 PM EST [facility] Blood VENOUS BLOOD SPECIMEN / Unknown Venipuncture / Unknown 07/29/2024 4:08 PM EST 07/29/2024 4:26 PM EST Aubree Silverio MD MICROBIOLOGY - BLO OD ORDERABLES [facility] [place] [address] * XR Chest One View (07/29/2024 2:30 PM EST) WORKSTATION ID [id number] RAD Anatomical Region Laterality Modality Chest N/A [...] questions please contact the health clinical care manager that requested your imaging first. ? Electronically signed by: Chris Candelaria MD, [facility] ([phone]), at 07/29/2024 3:21 PM Narrative 07/29/2024 3:21 [...] have questions please contactthe health clinical care manager that requested your imaging first. Electronically signed by: Chris Candelaria MD, [facility]([phone]), at 07/29/2024 3:21 PM Vahe Marvin MD IMG DX ORDERABLES * (ABNORMAL) APTT (07/29/2024 2:03 PM EST) [facility] Partial Thromboplastin Time >160(HHH) 25 - 37 sec 07/29/2024 2:56 PM EST [facility] Blood VENOUS BLOOD SPECIMEN / Unknown Venipuncture / Unknown 07/29/2024 2:03 PM EST 07/29/2024 2:13 PM EST Vahe Marvin MD HEMATOLOGY ORDERABLE S [facility] [place] [address] * (ABNORMAL) Prothrombin Time (07/29/2024 2:03 PM EST) [facility] Prothrombin Time 14.2(H) 9.4 - 12.5 sec 07/29/2024 2:56 PM EST [facility] International Normalization Ratio 1.3 <=4.9 07/29/2024 2:56 PM EST [facility] Comment: An INR < 2.0 [...] MD HEMATOLOGY ORDERABLE S Performing Organization Address City/[facility]/ZIP Co de Phone Number [facility] [place] [address] * CRP, acute inflammation (07/29/2024 2:03 PM EST) C-Reactive Protein <3.0 <=4.9 mg/L 07/29/2024 2:52 PM EST [facility] Blood VENOUS BLOOD SPECIMEN / Unknown Venipuncture / Unknown 07/29/2024 2:03 PM EST 07/29/2024 2:14 PM EST Vahe Marvin MD CHEMISTRY ORDERABLES Performing Organization Address City/[facility]/ZIP Co de Phone Number [facility] [place] [address] * Lipid Panel (Reflex Direct LDL) (07/29/2024 2:03 PM EST) Cholesterol, Total 133 mg/dL 07/29/2024 2:52 PM EST [facility] Comment: Desirable: < 200 mg/dL Borderline High: 200 - 239 mg/dL High: > or = 240 mg/dL Triglyceride 45 mg/dL 07/29/2024 2:52 PM EST [facility] Comment: Normal: <150 mg/dL Borderline [...] ACC/AHA Guidelines (most recently Rolf et al. [facility] 06/15/22): * For individuals with atherosclerotic [...] Marvin MD CHEMISTRY ORDERABLES Performing Organization Address City/[facility]/ZIP Co de Phone Number [facility] [place] [address] * TSH [place] (07/29/2024 2:03 PM EST) [facility] Thyroid Stimulating Hormone 0.70 0.27 - 4.20 mcIU/mL 07/29/2024 2:52 PM EST [facility] Blood VENOUS BLOOD SPECIMEN / Unknown Venipuncture / Unknown 07/29/2024 2:03 PM EST 07/29/2024 2:14 PM EST Vahe Marvin MD CHEMISTRY ORDERABLES Performing Organization Address City/[facility]/ZIP Co de Phone Number [facility] [place] [address] * Hemoglobin A1c (07/29/2024 2:03 PM EST) Hemoglobin A1c 5.3 4.3 - 5.6 % 07/29/2024 2:41 PM EST [facility] Comment: Per ADA guidelines, without [...] red blood cell turnover may not be bank representative of glycemic control. Reference Interval: 4.3 - 5.6% 5.7 - 6.4%: Consistent with prediabetes >=6.5%: Consistent with diagnosis of diabetes mellitus Estimated Average Glucose 07/29/2024 2:41 PM EST [facility] Comment:Estimated Average Gl ucose not [...] into estimated average glucose values. ??Diabetes Care 2008:31(8):0640-5123. Additional resources are available on the ADA website (diabetes.org). Vahe Marvin MD CHEMISTRY ORDERABLES [facility] [place] [address] * (ABNORMAL) CBC (with Diff) (07/29/2024 2:03 PM EST) White Blood Cell 19.50(H) 4.00 - 9.50 x10(3)/mc L 07/29/2024 2:18 PM EST [facility] Red Blood Cell 4.81 4.58 [...] 3.20 x10(3)/mc L 07/29/2024 2:18 PM EST [facility] Monocyte % 2.9 % 07/29/2024 2:18 PM EST [facility] Monocyte Absolute 0.56 0.30 - 0.90 x10(3)/mc L 07/29/2024 2:18 PM EST [facility] Eos % 0.0 % 07/29/2024 2:18 PM EST [facility] Eos Absolute <0.04 0.00 - 0.40 x10(3)/mc L 07/29/2024 2:18 PM EST [facility] Basophil % 0.3 % 07/29/2024 2:18 PM EST [facility] Baso Absolute 0.05 0.00 - 0.10 x10(3)/mc L 07/29/2024 2:18 PM EST [facility] Immature Gran % 0.5 % 2:18 PM [facility] Immature Gran Absolute 0.09(H) 0.00 - 0.04 x10(3)/mc L 07/29/2024 2:18 PM EST [facility] Blood VENOUS BLOOD SPECIMEN / Unknown Venipuncture / Unknown 07/29/2024 2:03 PM EST 07/29/2024 2:13 PM EST Vahe Marvin MD HEMATOLOGY ORDERABLE S [facility] [place] [address] * Phosphorus (07/29/2024 2:03 PM EST) Phosphorus 2.5 2.5 - 4.5 mg/dL 07/29/2024 2:52 PM EST [facility] Blood VENOUS BLOOD SPECIMEN / Unknown Venipuncture / Unknown 07/29/2024 2:03 PM EST 07/29/2024 2:14 PM EST Vahe Marvin MD CHEMISTRY ORDERABLES [facility] [place] [address] * Magnesium (07/29/2024 2:03 PM EST) Magnesium 0.70 0.69 - 1.07 mMol/L 07/29/2024 2:52 PM EST [facility] Blood VENOUS BLOOD SPECIMEN / Unknown Venipuncture / Unknown 07/29/2024 2:03 PM EST 07/29/2024 2:14 PM EST Vahe Marvin MD CHEMISTRY ORDERABLES Performing Organization Address [facility]/ZIP Co de Phone Number [facility] [place] [address] * (ABNORMAL) Comprehensive metabolic panel (07/29/2024 2:03 [...] - 10.5 mg/dL 07/29/2024 3:11 PM EST [facility] Protein, Total 6.0(L) 6.1 - 8.0 g/dL 07/29/2024 3:11 PM [facility] Albumin 3.6 3.2 - 5.2 g/dL 07/29/2024 3:11 PM [facility] Aspartate Aminotransferase 07/29/2024 3:11 PM EST [facility] Comment:Unable to report due to [...] EST Vahe Marvin MD CHEMISTRY ORDERABLES [facility] [place] [address] * (ABNORMAL) Troponin - Single (07/29/2024 2:03 PM EST) [facility] Troponin-T, High Sensitivity >10,000(H ) <=22 ng/L 07/29/2024 2:52 PM EST [facility] Comment: This patient's troponin T [...] troponin value can be found in the [facility] Test Catalog Troponin - https://[facility]-.testcatalog.org/catalogs/565/files/64764 Reference: Fourth Lenore Definition of Myocardial Infarction. Journal of the [place] [employer] 2018;72:1238-9142 Blood VENOUS BLOOD SPECIMEN / Unknown Venipuncture / Unknown 07/29/2024 2:03 PM EST 07/29/2024 2:14 PM EST Vahe Marvin MD CHEMISTRY ORDERABLES [facility] [place] [address] * (ABNORMAL) Blood Gas, Venous POC (07/29/2024 2:01 PM EST) [facility] pH, Venous 7.30(L) 7.32 - 7.42 07/29/2024 2:02 PM EST [facility] PCO2, Venous 42 38 - 58 mmHg 07/29/2024 2:02 PM EST [facility] PO2, Venous 39 16 - [...] O RDERABLES Performing Organization Address [facility]/State/ZIP Co de Phone Number [facility] [place] [address] * CARDIAC CATHETERIZATION (07/29/2024 1:20 PM EST) Anatomical Region Laterality Modality Other Narrative 07/29/2024 2:02 PM EST ?[facility] ? Cardiac Catheterization/Intervention Report ? Patient Name: Korey Montoya Kyrie. ? Procedure Date: 07/29/2024 ? A #: [id number] ? Primary Physician: Vahe Marvin S ? Case #: [id number] ? File Name: [id number] ? Catheterization Order Number: [id number] ? [facility] ? Final Report [place], [place] ? Patient Name: ? Korey Montoya ?ID#: ?[id number] ? : ?1950 ? Procedure Date: ? [...] was designated as ASA Class IV. The [facility] clinical frailty scale ?is 4: Vulnerable. ? Diagnostic Tests: ?Electrocardiography: ? EKG was assessed by ECG. EKG was Abnormal. EKG showed ST Deviation ? >= 0.5 mm. ?Medications Prior to Procedure: ? Angiotensin II Receptor Elvis and Statin. ? Indications for Diagnostic Cath: ?The priority of the diagnostic procedure was Emergent. The indication for ?the photonic laboratory technician visit is ACS less than [...] 3.5 guiding catheter and a 3.5 Fr [facility] [facility] [place] [address] ??20 Mhz using ?Manual pullback. ??Imaging [...] ? A premounted 3.00 x 22 mm [place] Valencia (LOW) was deployed ? with a maximum [...] ??A premounted 3.00 x 08 mm Jeison Valencia (LOW) ? was deployed with a maximum [...] dose administered prior to arrival in the photonic laboratory technician. ?Recommended anti-platelet/anti-thrombotic regimen: ?Start aspirin 81 mg daily now and continue for 12 months then stop. ?Start clopidogrel 75 mg daily now and continue for indefinitely. ?These recommendations are made at the time of the intervention. Patient ?and provider preferences or a changing clinical situation may require ?modification of this regimen. Consult [facility] Interventional Cardiology for ?questions. [...] able ?to start weaning his inotropes/vasopressors. A Vacherie Colette catheter was ?placed demonstrating improvement in [...] ventricular assist device insertion, right heart ?catheterization, Vacherie (flow directed cath) insertion, access site ?angiography, vascular ultrasound, venous line / sheath insert and vascular ?closure device. ? Vahe S Shavonne, M.D. ? Electronically Signed by: Vahe Quiñones Shavonne, M.D. ? Report Finalized: 07/29/2024 ??13:55 ? Report Last Ammended: 09/20/2024 ??15:21 ? Procedure Note Vahe Marvin MD - 09/20/2024 [facility] Cardiac Catheterization/Intervention Report Patient Name: Korey Montoya Procedure Date: 07/29/2024 A #: [id number] Primary Physician: Vahe Marvin Case #: [id number] File Name: [id number] Catheterization Order Number: [id number] [facility] FinalReport [place], [place] Patient Name: Korey Montoya ID#:[id number] :1950 Procedure Date: July 29, 2024 Case [...] was designated as ASA Class IV. The [facility] clinical frailtyscale is 4: Vulnerable. Diagnostic Tests: Electrocardiography: EKG was assessed by ECG. EKG was Abnormal. EKG showed STDeviation >= 0.5 mm. Medications Prior to Procedure: Angiotensin II Receptor Elvis and Statin. Indications for Diagnostic Cath: The priority of the diagnostic procedure was Emergent. Theindication for the photonic laboratory technician visit is ACS less than [...] 3.5 guiding catheter and a 3.5 Fr [facility] [place] [address] 20 Mhzusing Manual pullback. Imaging was [...] priority for the procedure was Emergent.The [facility] indication for the procedure was [...] The lesion was predilated with a 2.00mm [id number] MM balloon with a maximum inflation pressure of 12atmospheres. A premounted 3.00 x 22 mm [place] Valencia (LOW) wasdeployed with a maximum inflation pressure [...] A premounted 3.00 x 08 mm Jeison Valencia(LOW) was deployed with a maximum inflation pressure [...] dose administered prior to arrival in the photonic laboratory technician. Recommended anti-platelet/anti-thrombotic regimen: Start aspirin 81 mg daily now and continue for 12 months then stop. Start clopidogrel 75 mg daily now and continue for indefinitely. These recommendations are made at the time of the intervention.Patient and provider preferences or a changing clinical situation mayrequire modification of this regimen. Consult [facility] Interventional Cardiologyfor questions. The [...] wereable to start weaning his inotropes/vasopressors. A Vacherie Colette catheterwas placed demonstrating improvement in his [...] ventricular assist device insertion, right heart catheterization, Vacherie (flow directed cath) insertion, access site angiography, [...] POINT OF CARE TEST O RDERABLES [facility] [place] [address] * (ABNORMAL) BLOOD GAS, POC (07/29/2024 12:12 [...] CARE TEST O RDERABLES Performing Organization Address City/State/[facility] Co de Phone Number [facility] [place] [address] documented in this encounter Visit Diagnoses Not [...] Routine documented in this encounter Care Teams Ladle Cleaner Relationship Specialty Start Date End Date Yoel Artis APRN [address] [place] [id number] PCP - General Internal Medicine 11/18/22 07/29/24 documented as of this encounter
--- OUTSIDE RECORDS SUMMARY | 2024-09-26 10:19 | XMS_ITS | Encounter Summary ---
[place] [address] Care Team Providers Care Commanding Officer Traffic Division Name Role Phone Yoel Artis FREDRICK Primary Care Provider [phone] Encounter Details Date Type Department Care Team (Late st Contact Info) Description 08/26/2023 [place]phone [place] [address] Madelyn Vasquez Social History Tobacco Use Types [...] - 08/26/2023 9:23 AM EST Korey Montoya [id number] Diagnosis/Indication: Rectal pain, fecal smearing Please review [...] ever had a/an Colonoscopy before? Yes: Date [id number] ago [facility] If yes, did [...] your procedure. Who will likely be your coach tour driver for the procedure? Please Verify the [...] AM EST Office Visit Cardiology at [address] [phone] Mushtaq Murphy APRN documented as of this encounter Visit Diagnoses Not on filedocumented in this encounter Care Teams Commanding Officer Traffic Division Relationship Specialty Start Date End Date Yoel Artis APRN [address] [place] [address] PCP - General Internal Medicine 11/18/22 07/29/24 documented as of this encounter
--- OUTSIDE RECORDS SUMMARY | 2024-09-26 10:19 | XMS_ITS | Encounter Summary ---
Author Organization [facility] [place] [address] Care Team Providers Care Lot Attendant Name Role Phone Yoel Artis Ute ALCALA Primary Care Provider [phone] Reason for Visit * Auth/Cert (Routine) Specialty Diagnoses / Procedures Referred By Theodore t Referred To Contact Diagnoses Anal spasm Fecal smearing Constipation, unspecified Rectal pain, fecal smearing Procedures PRO COLONOSCOPY, DIAGNOSTIC PRO COLONOSCOPY, BIOPSY PRO COLONOSCOPY, REMV LESN, SNARE COLONOSCOPY, DIAGNOSTIC (WRVU 3.26) Brandan Mcgovern MD [facility] [place] [address] [facility] Referral ID Status Reason Start Date Expiration Date Visits Re quested Visits Authorized [id number] 1 1 Encounter Details Date Type Department Care Team (Latest Contact Info) Description 08/30/2023 10:09 AM EST - 08/30/2023 12:19 PM [facility] Hospital Encounter [place] [address] Brandan Mcgovern MD [facility] [place] [address] Discharge Disposition: Home Social History Tobacco Use [...] occurs, please contact your Doctor. Please call [phone] before 8pm Mon-Fri with problems, questions or concerns. If you call after 8pm or on weekends, call the Hospital at [phone] and ask to speak to the [employer] enterprise integration architect and the routing machine operator will contact that person for you. When should you call for help? Call [phone] anytime you think you may need emergency [...] any problems. Where can you learn more? [facility] View your After Visit Summary and more online at [email or web address] If you would like to provide feedback about your hospital experience, please call the Office of Patient and Family Relations at . If you have received this After Visit Summary in error, please immediately return it in person to the department, or notify the [facility] Privacy Office by calling toll free at between the hours of 8AM and 5PM to arrange for our retrieval of the documents at no cost to you. Content Version: 12.2 ?? 5916-8441 [employer]. Care instructions adapted under license by [facility]. If you have questions about a medical condition or this instruction, always ask your healthcare professional. [employer] disclaims any warranty or liability for your [...] evening. 04/17/2023 08/04/2024 nitroGLYcerin (NITROLINGUAL) 400 mcg/spray [place], Non-AerosolIndications:P roctalgia fugax,Fecal smearing,Constipation, unspecified constipation type [...] AM EST Office Visit Cardiology at [address] [address] Mushtaq Murphy APRN documented as of this encounter Procedures Procedure Name Priority Date/Time Associated Diagnosis Comments SPECIMEN TO PATHOLOGY Routine 08/30/2023 11:23 AM EST SURGICAL PATHOLOGY REPORT Routine 08/30/2023 11:21 AM EST COLONOSCOPY Routine 08/30/2023 10:57 AM EST Colonoscopy, Remv Jonin, Snare ([id number]) 08/30/2023 10:44 AM EST Proctalgia fugax Fecal smearing Constipation, unspecified constipation type documented in this encounter Results * Specimen to Pathology (08/30/2023 11:23 AM EST) AP Specimen 08/30/2023 11:2 3 AM EST 08/30/2023 11:23 AM EST Narrative [facility] - 08/30/2023 11:23 AM EST Specimen requisition ordered. ??Separate Pathology report to follow Brandan Mcgovern MD PATHOLOGY/CYTOLOGY O RDKAY Performing Organization Address [facility] Co de Phone Number [facility] [place] [phone] * Surgical Pathology Report (08/30/2023 11:21 AM EST) Final Diagnosis [id number] ? Location: 4T; EA12; A The signing pathologist has (i) examined the relevant preparation(s) for the specimen(s) and (ii) rendered or confirmed the diagnosis(es). . ?Surgical Pathology DIAGNOSIS A - Sigmoid colon polyp, resection (Multiple): - ??Tubular adenoma. CR-PX Electronically signed by: ?Blake ORTEGA PhD, Yulia Verified: ??09/08/2023 14:48 ??Pathologist Performed at: ??-[facility] Dept. of Pathology, [place] [address] Manager Equity: Fercho Chan MD, FCAP, ??CLIA Certificate: [id number] SPECIMEN(S) SUBMITTED A - Sigmoid colon polyp, resection (Multiple) CLINICAL INFORMATION 73-year-old male, history of rectal pain SPECIMEN PROCESSING A - Labeled/Fixativ e: Sigmoid colon polyp, formalin. Quantity/Size: Single, 0.8 cm. Tissue Description: Soft, candelaria tissue. Sections/Proces sing: Submitted in toto ??in 1 cassette labeled A1. ??sdy 09/08/2023 2:48 PM EST [facility] GI Biopsy 08/30/2023 11:2 1 AM EST 08/30/2023 11:21 AM EST Brandan Mcgovern MD PATHOLOGY/CYTOLOGY O JOSH Performing Organization Address City/[facility]/ZIP Co de Phone Number [facility] [place] [phone] [place] [address] * COLONOSCOPY (08/30/2023 10:57 AM EST) COLONOSCOPY [facility] Endoscopy Procedure Date: 08/30/2023 10:57 AM ? Patient Name: Korey Montoya ? Date of : 1950 ? Age: 73 ? Order #: [id number] ? Instrument Name: [id number] ? Procedure: ? Colonoscopy Indications: ? Rectal [...] preparation was evaluated ? using the BBPS (Point Inside Bowel ? Preparation Scale) with scores of: [...] RN) documented in this encounter Care Teams Lot Attendant Relationship Specialty Start Date End Date Yoel Artis APRN [address] [place] [address] PCP - General Internal Medicine 11/18/22 07/29/24 documented as of this encounter
--- OUTSIDE RECORDS SUMMARY | 2024-09-26 10:19 | XMS_ITS | Encounter Summary ---
Author Organization [facility] [place] [address] Care Team Providers Care Title One Kindergarten Teacher Name Role Phone Yoel Artis Ute ALCALA Primary Care Provider [phone] Encounter Details Date Type Department Care Team (Late st Contact Info) Description 07/29/2024 Interpretation Only [facility] [address] [place] [id number] Chaparro Montana MD [address] [place] [address] Social History Tobacco Use Types Packs/Day Years Used Date Smoking Tobacco: Former Cigarettes Smokeless Tobacco: Never Alcohol Use Standard Drinks/Week Comments Not Currently 0 (1 standard drink = 0.6 oz pur e alcohol) [facility] Utilities Answer Date Recorded In the past 12 months has [employer] gas, oil, or water [employer] threatened to shut off services in your [...] time in the past [address] [facility], were you homeless or living [...] AM EST Office Visit Cardiology at [address] [address] Mushtaq Murphy APRN documented as of this encounter Procedures Procedure Name Priority Date/Time Associated Diagnosis Comments XR CHEST ONE VIEW STAT 07/29/2024 10: 50 AM EST documented in this encounter Results * XR Chest One View (07/29/2024 10:50 AM EST) PT CLASS E RAD ADMITDTTM [id number] RAD PT RAD MD INFO [id number]^Albertiss henry^Chaparro RAD EXAM DESC XCXR1^XR Chest 1 [...] who have questions please contact the health assistant child care teacher that requested your imaging first. ? [...] patients who have questions please contactthe health assistant child care teacher that requested your imaging first. Chaparro Montana MD IMG DX ORDERABLES documented in this encounter Visit Diagnoses Not on filedocumented in this encounter Care Teams Title One Kindergarten Teacher Relationship Specialty Start Date End Date Yoel Artis APRN [address] [place] [address] PCP - General Internal Medicine 11/18/22 07/29/24 documented as of this encounter
--- OUTSIDE RECORDS SUMMARY | 2024-09-26 10:19 | XMS_ITS | Encounter Summary ---
Author Organization [facility] Address [facility] [place] [address] Care Team Providers Care Assistant Media Buyer Name Role Phone Unknown Primary Care Provider Unavailabl e Encounter Details Date Type Department Care Team (Late st Contact Info) Description 01/13/2019 9:05 PM EDT Ancillary Procedure Radiology Library at [facility] [place] [phone] Sunny Aviles MD [facility] [place] [address] Social History Tobacco Use Types Packs/Day Years [...] AM EST Office Visit Cardiology at [address] [place] [address] Mushtaq Murphy APRN documented as of this [...] IMG FILM LIBRARY ORDERABLES Performing Organization Address City/State/[facility] Co de Phone Number [place], [place] documented in this encounter Visit Diagnoses Not on filedocumented in this encounter Care Teams Assistant Media Buyer Relationship Specialty Start Date End Date Unknown None PCP - General 08/04/10 01/16/19 documented as of this encounter
--- OUTSIDE RECORDS SUMMARY | 2024-09-26 10:19 | XMS_ITS | Encounter Summary ---
[place] [address] Care Team Providers Care Exit Booth Agent Name Role Phone Yoel Artis APRN Primary Care Provider Encounter Details Date Type Department Care Team (Late st Contact Info) Description 03/01/2023 9:30 AM EDT - 03/01/2023 11:59 PM EDT Hospital Encounter [facility] [address] [place] [address] Yoel Artis APRN [address] [place] [address] Discharge Disposition: Home Social History Tobacco Use [...] AM EST Office Visit Cardiology at [address] [address] Mushtaq Murphy APRN documented as of this encounter Procedures Procedure Name Priority Date/Time Associated Diagnosis Comments PSA (ULTRASENSITIVE) Routine 03/01/2023 9:38 AM EDT documented in this encounter Results * (ABNORMAL) PSA (Ultrasensitive) (03/01/2023 9:38 AM EDT) Prostate Specific Antigen (Ultrasensitive) 5.09(H) 0.00 - 4.00 ng/mL [facility] Comment: PLEASE NOTE: The [...] In Lab Yoel Artis APRN CHEMISTRY ORDERABLES [facility] [place] [place] [address] documented in this encounter Visit Diagnoses Not on filedocumented in this encounter Care Teams Exit Booth Agent Relationship Specialty Start Date End Date Yoel Artis APRN [address] [place] [address] PCP - General Internal Medicine 11/18/22 07/29/24 documented as of this encounter
--- OUTSIDE RECORDS SUMMARY | 2024-09-26 10:19 | XMS_ITS | Encounter Summary ---
[place] [address] Care Team Providers Care Curriculum And Assessment Director Name Role Phone Yoel Artis APRN Primary Care Provider [phone] Reason for Referral * Consultation (Routine) - Closed Specialty Diagnoses / Procedures Referred By Theodore muro Referred To Contact Urology Diagnoses Raised prostate specific antigen PERSISTENTLY MILDLY ELEVATED PSA, URINARY FREQ Yoel Artsi APRN [address] [place] [address] [facility] [place] [address] Referral ID Status Reason Start Date Expiration Date V isits Requested Visits Authorized [id number] Closed Consult, Test & Treat PCP Updated and/or Approved 07/30/2023 07/29/2024 6 6 Encounter Details Date Type Department Care Team (Late st Contact Info) Description 07/30/2023 Transcribe Orders eDH Incoming Referrals [phone] Yoel Artis APRN [address] [place] [address] Raised prostate specific antigen Social History Tobacco [...] AM EST Office Visit Cardiology at [address] [address] Mushtaq Murphy APRN Scheduled Referrals Name Type Priority Associated Diagnoses Orde r Schedule Referral to Urology Outpatient Referral Routine Raised prostate specific antigen Ordered: 07/30/2023 documented as of this encounter Visit Diagnoses Diagnosis Raised prostate specific antigen Elevated prostate specific antigen (PSA) documented in this encounter Care Teams Curriculum And Assessment Director Relationship Specialty Start Date End Date Yoel Artis APRN [address] [place] [address] PCP - General Internal Medicine 11/18/22 07/29/24 documented as of this encounter
--- OUTSIDE RECORDS SUMMARY | 2024-09-26 10:19 | XMS_ITS | Encounter Summary ---
[place] [address] Care Team Providers Care Managed Security Sales Consultant Name Role Phone Anibal Mtz MD Primary Care Provider [phone] Encounter Details Date Type Department Care Team (Late st Contact Info) Description 01/18/2019 3:00 PM EDT Interpretation Only Cardiology at [address] [address] Alberto Powell Jr., MD Dizziness Social History [...] AM EST Office Visit Cardiology at [address] [address] Mushtaq Murphy APRN documented as of this [...] giddiness documented in this encounter Care Teams Managed Security Sales Consultant Relationship Specialty Start Date End Date Anibal Mtz MD [address] [place] [address] PCP - General Family Medicine 01/17/19 11/17/22 documented as of this encounter
--- OUTSIDE RECORDS SUMMARY | 2024-10-03 10:54 | XMS_ITS | Encounter Summary ---
Author Organization [facility] Address [facility] [place] [address] Care Team Providers Care Electric Hoist Operator Name Role Phone Alexia Mtz FREDRICK Primary Care Provider [phone] Encounter Details Date Type Department Care Team (Late st Contact Info) Description 10/02/2024 Notes Only Cardiology at [address] [address] Alok Eaton, RD [facility] [place] [address] Social History Tobacco Use Types Packs/Day Years Used Date Smoking Tobacco: Former Cigarettes Smokeless Tobacco: Never Alcohol Use Standard Drinks/Week Comments Not Currently 0 (1 standard drink = 0.6 oz pur e alcohol) [facility] Utilities Answer Date Recorded In the past 12 months has e [employer], gas, oil, or water [employer] threatened to shut off services in your home? No 07/30/2024 Hunger Vital Sign Answer Date Recorded Within the past 12 months, y ou worried that your food would run out before you got the money to buy more. Never true 10/01/19 Within the past 12 months, t he food you bought just didn't last and you didn't have money to get more. Never true 10/01/2024 PRAPARE - Transportation Answer Date Re corded [...] in the past 12 m [facility], were you homeless or living in [...] as of this encounter Progress Notes * Alok Eaton RD - 10/02/2024 2:58 PM EST 10/02/24 Korey Montoya was referred for Medical Nutrition Therapy by To Murphy APRN. Phone was picked up by patient while he was driving so could not schedule a nutrition visit. Verified his e-mail and sent this with call-back number to schedule telehealth visit through racing secretary and handicapper: [phone] Option #2. documented in this encounter Plan of Treatment Upcoming Encounters Date Type Department Care Team (Late st Contact Info) Description 10/31/2024 9:30 AM EST Appointment [place] [address] Mushtaq Murphy APRN 10/31/2024 11:00 AM EST Office Visit Cardiology at [address] [address] Mushtaq Murphy APRN documented as of this encounter Visit Diagnoses Not on filedocumented in this encounter Care Teams Electric Hoist Operator Relationship Specialty Start Date End Date Alexia Mtz APRN [address] [place] [address] PCP - General Family Medicine 07/30/24 documented as of this encounter
--- OUTSIDE RECORDS SUMMARY | 2024-10-03 10:54 | XMS_ITS | Encounter Summary ---
Author Organization [facility] [place] [address] Care Team Providers Care Handling Tech Name Role Phone Aleixa Mtz FREDRICK Primary Care Provider [phone] Encounter Details Date Type Department Care Team (Latest Contact Info) Description 10/01/2024 Travel Social History Tobacco Use Types Packs/Day Years Used Date Smoking Tobacco: Former Cigarettes Smokeless Tobacco: Never Alcohol Use Standard Drinks/Week Comments Not Currently 0 (1 standard drink = 0.6 oz pur e alcohol) [facility] Utilities Answer Date Recorded In the past 12 months has th e electric, gas, oil, or water company threatened to shut off services in your home? No 07/30/2024 Hunger Vital Sign Answer Date Recorded Within the past 12 months, y ou worried that your food would run out before you got the money to buy more. Never true 10/01/19 25 Within the past 12 months, t he [...] any time in the past 12 m [facility], were you homeless or living in a [...] 9:30 AM EST Appointment Non-Invasive [place] [address] Mushtaq Murphy, HALL COORDINATOR 10/31/2024 11:00 AM EST Office Visit Cardiology at [address] [address] Mushtaq Murphy, HALL COORDINATOR documented as of this encounter Visit Diagnoses Not on filedocumented in this encounter Care Teams Handling Tech Relationship Specialty Start Date End Date Alexia Mtz APRN [address] [place] [address] PCP - General Family Medicine 07/30/24 documented as of this encounter
--- OUTSIDE RECORDS SUMMARY | 2024-10-03 10:54 | XMS_ITS | Encounter Summary ---
[place] [address] Care Team Providers Care Doll Wigs Hackler Name Role Phone Alexia Mtz FREDRICK Primary Care Provider [phone] Encounter Details Date Type Department Care Team (Late st Contact Info) Description 09/21/2024 External Results Non-[place] [address] Social History Tobacco Use Types Packs/Day Years Used Date Smoking Tobacco: Former Cigarettes Smokeless Tobacco: Never Alcohol Use Standard Drinks/Week Comments Not Currently 0 (1 standard drink = 0.6 oz pur e alcohol) [facility] Utilities Answer Date Recorded In [...] time in the past 12 m [facility], were you homeless or living in a snf (including now)? No 07/30/2024 IPV Inpatient Questions [...] 9:30 AM EST Appointment Non[place] [address] Mushtaq Murphy APRN 10/31/2024 11:00 AM EST Office Visit Cardiology at [address] [address] Mushtaq Murphy APRN documented as of this encounter Procedures Procedure Name Priority Date/Time Associated Diagnosis Comments EEG SCAN Routine 07/29/2024 9:44 AM EST documented in this encounter Results * Scan Doc: EEG (07/29/2024 9:44 AM EST) Historical Provider MD CLANCY MGR SCAN EX T ORDR/RSLT documented in this encounter Visit Diagnoses Not on filedocumented in this encounter Care Teams Doll Wigs Hackler Relationship Specialty Start Date End Date Alexia Mtz APRN [address] [place] [address] PCP - General Family Medicine 11/18/24 documented as of this encounter
--- OUTSIDE RECORDS SUMMARY | 2024-10-03 10:54 | XMS_ITS | Clinical Summary ---
Author Organization [facility] [place] [address] Care Team Providers Care Hand Hardener Name Role Phone Alexia Mtz FREDRICK Primary Care Provider [phone] Allergies No known active allergies Medications Medication Sig Dispensed Refills Start Date End Date Status losartan (Cozaar) 25 mg tablet Take 25 mg by mouth daily. 12.5 mg daily 04/17/2023 Active Psyllium Seed-Sucrose (0) Powder Take [...] mouth daily. 30 tablet 12 08/05/2024 Active nitroGLYcerin (Nitrostat) 0.[address] 1 tablet under the tongue every 5 minutes as needed for Chest pain. 90 tablet 12 08/04/2024 Active dapagliflozin propanediol (Farxiga) 10 mg tablet Take 1 tablet by mouth daily for 60 days. 30 tablet 1 08/04/2024 10/03/2024 Active spironolactone (Aldactone) 25 mg tablet Take 1 tablet by mouth daily for 90 days. 30 tablet 2 10/02/2024 12/31/2024 Active Active Problems Problem Noted Date Diagnosed Date STEMI (ST elevation myocardial infarction) 07/29 Dizziness 02/07/2019 Encounters Date Type Department Care Team Description 10/02/2024 Notes Only Cardiology at [address] [phone] Alok Eaton, PEYTON 10/02/2024 Telephone Cardiology at [address] [phone] Tre Gibbons RN 10/01/2024 1:55 PM EST Laboratory Appointment Lab [address] [address] HFrEF (heart failure with reduced ejection fraction) 10/01/2024 11:00 AM EST - 10/01/2024 11:59 PM EST Hospital Encounter Non-[place] [address] Mushtaq Royal APRN HFrEF (heart failure with reduced ejection fraction) Discharge Disposition: Home 10/01/2024 10:00 AM EST Office Visit Cardiology at [address] [phone] Mushtaq Royal APRN HFrEF (heart failure with reduced ejection fraction); ST elevation myocardial infarction involving left anterior descending (LAD) coronary artery 10/01/2024 Telephone Cardiology at [address] [phone] Chloe Ramos 10/01/2024 Travel 09/21/2024 External Results Non-[place] [address] 07/31/2024 4:30 PM EST - 07/31/2024 5:30 PM EST Surgery [employer] [place] [address] Maldonado Luis MD CARDIAC CATHETERIZATION 07/29/2024 6:32 PM EST - 07/29/2024 11:59 PM EST Hospital Encounter [facility] at [address] [address] Arvin Becerra MD Discharge Disposition: Home 07/29/2024 12:00 PM EST - 07/29/2024 12:54 PM EST Surgery [employer] [place] [phone] Vahe Marvin MD CARDIAC CATHETERIZATION 07/29/2024 11:45 AM EST - 08/04/2024 5:00 PM EST Hospital [place] [phone] Vahe Marvin MD Dadekian, MD Keith Richter, MD Eh Glavez Poornima, MD Kostojchin, Anastas, MD Kussaga, Sanjiv Hoffmann MD ST elevation myocardial infarction involving left anterior descending (LAD) coronary artery; HFrEF (heart failure with reduced ejection fraction) Discharge Disposition: Home 07/29/2024 Orders Only [employer] [place] [phone] Susannah Watts PA 07/29/2024 Interpretation Only [address] [address] Deondre Ferrera MD 07/29/2024 [place] [phone] Ivan Hernandez MD 07/29/2024 External [place] [phone] 07/28/2024 Interpretation Only [address] [address] Quinten Coffey MD from Last 3 Months [...] drink = 0.6 oz pur e alcohol) [facility] Utilities Answer Date Recorded In [...] Sign Reading Time Taken Comments Blood Pressure 102/62 10/01/2024 9:53 AM EST Pulse 63 10/01/2024 9:53 AM EST Temperature 37.2 ??C (99 ??F) 08/04/2024 4:00 AM EST Respiratory Rate 18 08/04/2024 3:42 PM EST Oxygen Saturation 98% 10/01/2024 9:53 AM EST Inhaled Oxygen Concentration - - Weight 62.3 kg (137 lb 6.4 oz) 10/01/2024 9:53 A M EST Height 167.6 cm (5' 6) 10/01/2024 9:53 AM EST Body Mass Index 22.18 10/01/2024 9:53 AM EST Plan of Treatment Upcoming Encounters Date Type Department Care Team (Late st Contact Info) Description 10/31/2024 9:30 AM EST Appointment Non-[place] [address] Mushtaq Royal APRN 10/31/2024 11:00 AM EST Office Visit Cardiology at [address] [phone] Mushtaq Royal, TECHNICAL SPECIALIST CYTOGENETICS Health Maintenance Due Date Last Done Comments [...] Procedure Name Priority Date/Time Associated Diagnosis Comments COMPREHENSIVE METABOLIC PANEL Routine 10/01/2024 12:33 PM EST HFrEF (heart failure with reduced ejection fraction) MAGNESIUM Routine 10/01/2024 12:33 PM EST HFrEF (heart failure with reduced ejection fraction) PRO-BRAIN NATRIURETIC PEPTIDE Routine 10/01/2024 12:33 PM EST HFrEF (heart failure with reduced ejection fraction) ECHO LMTD W CONTRAST W LMTD SPEC DOPP COLOR DOPP Routine 10/01/2024 12:15 PM EST HFrEF (heart failure with reduced ejection fraction) EKG 12-LEAD Routine 10/01/2024 10:05 AM EST HFrEF (heart failure with reduced ejection fraction) ECG SCAN 09/19/2024 12:00 AM EST LAB SCAN 09/19/2024 12:00 AM EST ECG SCAN 08/29/2024 12:00 AM EST ECG SCAN 08/22/2024 12:00 AM EST ECG SCAN 08/17/2024 12:00 AM EST CBC (WITH DIFF) Routine 08/04/2024 6:08 AM [...] 07/29/2024 5:57 PM EST TYPE AND SCREEN (MC/CGP/MAGALIE) Routine 07/29/2024 5:56 PM EST TROPONIN - [...] VIEW STAT 07/29/2024 10: 50 AM EST [facility]ULT Routine 07/29/2024 10:13 AM EST EEG SCAN Routine 07/29/2024 9:44 AM EST XR CHEST ONE VIEW STAT 07/28/2024 10: 22 AM EST COLONOSCOPY Routine 08/30/2023 10:57 AM EST from Last 3 Months or Most Recently Relevant to Health Maintenance Results * (ABNORMAL) pro-Brain Natriuretic Peptide (10/01/2024 12:33 PM EST) NT-proBNP 2,150(H) <=124 pg/mL 10/01/2024 1:18 PM EST [facility] Blood VENOUS BLOOD SPECIMEN / Unknown Venipuncture / Unknown 10/01/2024 12:33 PM EST 10/01/2024 12:38 PM EST Mushtaq Royal APRN CHEMISTRY ORDERABLE S [facility] [place] [address] * Magnesium (10/01/2024 12:33 PM EST) Only the most recent of9 resultswithin the time period is included. Magnesium 0.94 0.69 - 1.07 mMol/L 10/01/2024 1:18 PM EST [facility] Blood VENOUS BLOOD SPECIMEN / Unknown Venipuncture / Unknown 10/01/2024 12:33 PM EST 10/01/2024 12:38 PM EST Mushtaq Royal APRN CHEMISTRY ORDERABLE S [facility] [place] [address] * Comprehensive metabolic panel Non-fasting (10/01/2024 12:33 PM EST) Only the most recent of2 resultswithin the time period is included. Glucose 76 65 - 199 mg/dL 10/01/2024 1:18 PM EST [facility] Comment:Glucose Concentratio n >=200 mg/dL plus symptoms is consistent with Diabetes Mellitus. Blood Urea Nitrogen 17 10 - 20 mg/dL 10/01/2024 1:18 PM [facility] Creatinine 1.06 0.80 - 1.50 mg/dL 10/01/2024 1:18 PM [facility] Sodium 142 135 - 145 mMol/L 10/01/2024 1:18 PM [facility] Potassium 4.1 3.5 - 5.0 mMol/L 10/01/2024 1:18 PM [facility] Chloride 105 98 - 107 mMol/L 10/01/2024 1:18 PM [facility] Carbon Dioxide 25 22 - 31 mMol/L 10/01/2024 1:18 PM [facility] Anion Gap 12 5 - 15 mMol/L 10/01/2024 1:18 PM [facility] Calcium 9.5 8.5 - 10.5 mg/dL 10/01/2024 1:18 PM [facility] Protein, Total 7.2 6.1 - 8.0 g/dL 10/01/2024 1:18 PM [facility] Albumin 4.3 3.2 - 5.2 g/dL 10/01/2024 1:18 PM [facility] Aspartate Aminotransferase 18 <=39 unit/L 10/01/2024 1:18 PM [facility] Alanine Aminotransferase 18 0 - 55 unit/L 10/01/2024 1:18 PM [facility] Alkaline Phosphatase 94 40 - 130 unit/L 10/01/2024 1:18 PM EST [facility] Bilirubin, Total 0.4 <=1.3 mg/dL 10/01/2024 1:18 PM EST [facility] Est Glomerular Filtration Rate - Male 75 mL/min/1. 73 m?? 10/01/2024 1:18 PM EST [facility] Comment: [...] eGFR. Link: eGFR Calculator [employer] Fasting Status No 10/01/2024 1:18 PM EST [facility] Blood VENOUS BLOOD SPECIMEN / Unknown Venipuncture / Unknown 10/01/2024 12:33 PM EST 10/01/2024 12:38 PM EST Mushtaq Royal TECHNICAL SPECIALIST CYTOGENETICS CHEMISTRY ORDERABLE S [facility] [place] [address] * ECHO LMTD W CONTRAST W LMTD SPEC DOPP COLOR DOPP (10/01/2024 12:15 PM EST) EF 33 HEARTLAB SYSTEM Anatomical Region Laterality Modality Cardiac Other 10/01/2024 11:0 6 AM EST Narrative 10/01/2024 1:22 PM EST [address] [place] [address] ? Echocardiogram Report Name: MONTOYA KOREY Kyrie ? Study Date: 10/01/2024 11:06 AMBP: 119/78 mmHg : 1950 ? Height: 168 cm ? Account: [id number] Age: 74 yrs ? Weight: 62 kg Gender: Male ?BSA: 1.7 m2 Ordering Physician: MUSHTAQ ROYAL Referring Physician: MUSHTAQ ROYAL Performed By: OMERO Baez Reason For Study: Chest pain Exam Location: [facility]. Interpretation Summary Left ventricular systolic function is moderately reduced. The left ventricular ejection fraction is 33% by Giordano's biplane with extensive akinesis at the apex that extends up to the mid anteroseptum. There is no LV thrombus (intravenous echo contrast). The RV is normal in size and systolic function. Normal LA size. No significant valvular abnormalities. Other details as noted below. As compared to the prior echo report from 07/30/2024, the findings are similar. Procedure Limited - [id number]. Image enhancement Optison was used for left ventricular opacification. Suboptimal quality. There is sinus bradycardia. Left Ventricle Left ventricle is severely dilated. There is no ventricular septal defect. Left ventricular systolic function is moderately reduced. The left ventricular ejection fraction is 33% by Giordano's biplane. There are segmental wall motion abnormalities. There is no left ventricular thrombus. Right Ventricle The right ventricle is of normal size. Right ventricular systolic function is normal. Left Atrium The left atrium is normal. The interatrial septum is not well visualized. Aortic Valve The aortic valve is tricuspid. There is no aortic stenosis. There is trace aortic regurgitation. Mitral Valve The mitral valve is structurally and functionally normal. There is trace mitral regurgitation. Tricuspid Valve The tricuspid valve is structurally normal. There is mild tricuspid regurgitation. Pulmonic Valve The pulmonic valve is not well visualized. There is trace pulmonic valve regurgitation. Venous Inferior vena cava is not well visualized. Pericardium/Pleural There is a trivial pericardial effusion. The pericardial effusion is anterior. Hemodynamics The peak right ventricular systolic pressure is 16 mmHg. Plus RA presssure. There is Grade I LV diastolic dysfunction (abnormal relaxation with normal left ventricular filling pressure). Ejection Fraction ?2D Measurements ? Volumes EF(MOD-bp): 32.8 % ?IVSd: 0.97 cm ?LAV(MOD- bp) Indexed: ?LVIDd: 5.1 cm ?29.8 ml/m2 ?LVIDs: 3.5 cm ?EDV(MOD-bp) Indexed: ?LVPWd: 0.78 cm ?RWT: 0.31 {ratio} ?105.1 ml/m2 ?LV mass(C)d: 158.2 grams ? ESV(MOD- bp) Indexed: ? 70.6 ml/m2 ?LV mass(C)dI: 92.9 grams/m2 Doppler LV V1 VTI: 17.6 cm MV E max wellington: 60.8 cm/sec MV A max well[place]: 76.8 cm/sec MV E/A: 0.79 MV dec time: 0.18 sec Lat Peak E' [place]: 6.7 cm/sec E/e' (lat): 9.0 Med Peak E' [place]: 3.6 cm/sec E/e' (med): 16.9 E/e' Average: 13.0 TR max wellington: 202.1 cm/sec I ?WMSI = 2.25 ? % Normal = 19 ?Segments ??Size X - Cannot ?? 1 - Normal ?? 2 - ? 3 - Akinetic 4 - ?1-2 ? small Interpret ? Hypokinetic ?Dyskinetic ?? 3-5 ? moderate 5 - ? 6-14 ?large Aneurysmal ?15-16 ?? diffuse Procedure Note Pablo Tam MD - 10/01/2024 [address] [place] [address] Echocardiogram Report Name: KOREY MONTOYA Study Date: 511:06 AMBP: 119/78 mmHg : 1950 Height: 168 cm Account: [id number] Age: 74 yrs Weight: 62 kg Gender: Male BSA: 1.7 m2 Ordering Physician: MUSHTAQ ROYAL Referring Physician: MUSHTAQ ROYAL Performed By: OMERO Baez Reason For Study: Chest pain Exam Location: [facility]. Interpretation Summary Left ventricular systolic function is moderately reduced. The leftventricular ejection fraction is 33% by Giordano's biplane with extensive akinesis atthe apex that extends up to the mid anteroseptum. There is no LV thrombus (intravenous echo contrast). The RV is normal in size and systolic function. Normal LA size. No significant valvular abnormalities. Other details as noted below. As compared to the prior echo report from 07/30/2024, the findings aresimilar. Procedure Limited - [id number]. Image enhancement Optison was used for left ventricular opacification. Suboptimal quality. There is sinus bradycardia. Left Ventricle Left ventricle is severely dilated. There is no ventricular septal defect.Left ventricular systolic function is moderately reduced. The left ventricularejection fraction is 33% by Giordano's biplane. There are segmental wall motion abnormalities. There is no left ventricular thrombus. Right Ventricle The right ventricle is of normal size. Right ventricular systolic functionis normal. Left Atrium The left atrium is normal. The interatrial septum is not wellvisualized. Aortic Valve The aortic valve is tricuspid. There is no aortic stenosis. There is traceaortic regurgitation. Mitral Valve The mitral valve is structurally and functionally normal. There is tracemitral regurgitation. Tricuspid Valve The tricuspid valve is structurally normal. There is mild tricuspidregurgitation. Pulmonic Valve The pulmonic valve is not well visualized. There is trace pulmonic valve regurgitation. Venous Inferior vena cava is not well visualized. Pericardium/Pleural There is a trivial pericardial effusion. The pericardial effusion isanterior. Hemodynamics The peak right ventricular systolic pressure is 16 mmHg. Plus RApresssure. There is Grade I LV diastolic dysfunction (abnormal relaxation with normalleft ventricular filling pressure). Ejection Fraction 2D Measurements Volumes EF(MOD-bp): 32.8 % IVSd: 0.97 cm LAV(MOD-bp)Indexed: LVIDd: 5.1 cm 29.8 ml/m2 LVIDs: 3.5 cm EDV(MOD-bp)Indexed: LVPWd: 0.78 cm RWT: 0.31 {ratio} 105.1 ml/m2 LV mass(C)d: 158.2 grams ESV(MOD-bp)Indexed: 70.6 ml/m2 LV mass(C)dI: 92.9 grams/m2 Doppler LV V1 VTI: 17.6 cm MV E max wellington: 60.8 cm/sec MV A max wellington: 76.8 cm/sec MV E/A: 0.79 MV dec time: 0.18 sec Lat Peak E' Wellington: 6.7 cm/sec E/e' (lat): 9.0 Med Peak E' [place]: 3.6 cm/sec E/e' (med): 16.9 E/e' Average: 13.0 TR max wellington: 202.1 cm/sec I WMSI = 2.25 % Normal = 19 SegmentsSize X - Cannot 1 - Normal 2 - 3 - Akinetic 4 - 1-2small Interpret Hypokinetic Dyskinetic 3-5moderate 5 - 6-14large Aneurysmal 15-16diffuse Mushtaq Royal APRN ECHO ORDERABLES * EKG 12 Lead (10/01/2024 10:05 AM EST) Only the most recent of3 resultswithin the time period is included. Ventricular rate 62 BPM MUSE SYSTEM Atrial Rate 62 BPM MUSE SYSTEM P-R Interval 158 ms MUSE SYSTEM QRS Duration 96 ms MUSE SYSTEM Q-T Interval 422 ms MUSE SYSTEM QTC Calculated (Bezet) 428 ms MUSE SYSTEM Calculated P [place] 83 degrees MUSE SYSTEM Calculated R [place] 88 degrees MUSE SYSTEM Calculated T [place] 159 degrees MUSE SYSTEM INTERPRETATION Normal sinus rhythm Low voltage QRS 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) T wave abnormality, consider lateral ischemia ACUTE CA / STEMI Abnormal ECG When compared with ECG of 29-JUL-2024 16:21, Premature ventricular complexes are no longer Present Premature supraventricular complexes are no longer Present ST no longer elevated in Lateral leads T wave inversion now evident in Anterior leads Confirmed by MD Tyrel, Tyrell ([id number]) on 10/01/2024 1:34:36 PM MUSE SYSTEM 10/01/2024 10:0 5 AM EST 10/01/2024 1:34 PM EST Mushtaq Royal APRN ECG ORDERABLES MUSE SYSTEM * Scan Doc: Lab (09/19/2024 12:00 AM EST) Narrative 09/19/2024 12:00 AM EST Ordered by an unspecified provider. Scanning Provider MEDIA MGR SCAN EXT O RDR/RSLT * Scan Doc: ECG (09/19/2024 12:00 AM EST) Only the most recent of4 resultswithin the time period is included. Narrative 09/19/2024 12:00 AM EST Ordered by an unspecified provider. Scanning Provider MEDIA MGR SCAN EXT O RDR/RSLT * (ABNORMAL) CBC (with Diff) (08/04/2024 6:08 AM EST) Only the most recent of7 resultswithin the time period is included. White Blood Cell 7.27 4.00 - 9.50 x10(3)/mc L 08/04/2024 6:39 AM [facility] Red Blood Cell 4.28(L) 4.58 - 5.54 x10(6)/mc L 08/04/2024 6:39 AM [facility] Hemoglobin 11.6(L) 13.7 - 16.5 g/dL 08/04/2024 6:39 AM [facility] Hematocrit 34.8(L) 40.5 - 48.5 % 08/04/2024 6:39 AM [facility] Mean Cell Volume 81.3(L) 82.9 - 93.1 fL 08/04/2024 6:39 AM [facility] Mean Cell Hemoglobin 27.1(L) 27.5 - 32.1 pg 08/04/2024 6:39 AM [facility] Mean Cell Hemoglobin Concentration 33.3 32.0 - 35.7 g/dL 08/04/2024 6:39 AM [facility] Platelet 178 145 - 357 x10(3)/mc L 08/04/2024 6:39 AM [facility] Mean Platelet Volume 10.6 7.6 - 12.9 fL 08/04/2024 6:39 AM [facility] RDW Standard Deviation 42.0 36.0 - 45.0 fL 08/04/2024 6:39 AM [facility] RDW coefficient of variation 14.3(H) 11.4 - 13.8 % 08/04/2024 6:39 AM [facility] NRBC% auto 0.0 % 08/04/2024 6:39 AM [facility] NRBC Absolute <0.01 <0.01 x10(3)/mc L 08/04/2024 6:39 AM [facility] Neutrophil % 72.1 % 08/04/2024 6:39 AM [facility] Neutrophil Absolute (ANC) - Automated 5.24 1.70 - 6.10 x10(3)/mc L 08/04/2024 6:39 AM [facility] Lymph % 16.8 % 08/04/2024 6:39 AM [facility] Lymph Absolute 1.22 0.90 - 3.20 x10(3)/mc L 08/04/2024 6:39 AM [facility] Monocyte % 8.5 % 08/04/2024 6:39 AM [facility] Monocyte Absolute 0.62 0.30 - 0.90 x10(3)/mc L 08/04/2024 6:39 AM [facility] Eos % 1.9 % 08/04/2024 6:39 AM [facility] Eos Absolute 0.14 0.00 - 0.40 x10(3)/mc L 08/04/2024 6:39 AM [facility] Basophil % 0.4 % 08/04/2024 6:39 AM [facility] Baso Absolute <0.04 0.00 - 0.10 x10(3)/mc L 08/04/2024 6:39 AM [facility] Immature Gran % 0.3 % 6:39 AM [facility] Immature Gran Absolute <0.04 0.00 - 0.04 x10(3)/mc L 08/04/2024 6:39 AM [facility] Blood VENOUS BLOOD SPECIMEN / Unknown Venipuncture / Unknown 08/04/2024 6:08 AM EST 08/04/2024 6:19 AM EST Bridgette Stauffer MD HEMATOLOGY ORDERABLE S [facility] [place] [address] * Basic Metabolic Panel (08/04/2024 6:08 AM EST) Only the most recent of7 resultswithin the time period is included. Glucose 93 65 - 199 mg/dL 08/04/2024 7:07 AM [facility] Comment:Glucose Concentratio n >=200 mg/dL plus symptoms is consistent with Diabetes Mellitus. Blood Urea Nitrogen 14 10 - 20 mg/dL 08/04/2024 7:07 AM [facility] Creatinine 1.07 0.80 - 1.50 mg/dL 08/04/2024 7:07 AM [facility] Sodium 138 135 - 145 mMol/L 08/04/2024 7:07 AM [facility] Potassium 4.3 3.5 - 5.0 mMol/L 08/04/2024 7:07 AM [facility] Chloride 107 98 - 107 mMol/L 08/04/2024 7:07 AM [facility] Carbon Dioxide 23 22 - 31 mMol/L 08/04/2024 7:07 AM [facility] Anion Gap 8 5 - 15 mMol/L 08/04/2024 7:07 AM [facility] Calcium 8.5 8.5 - 10.5 mg/dL 08/04/2024 7:07 AM [facility] Est Glomerular Filtration Rate - Male 74 mL/min/1. 73 m?? 08/04/2024 7:07 AM [facility] Comment: This patient's estimated [...] MD CHEMISTRY ORDERABLES [facility] [place] [address] * POC, GLUCOSE (08/02/2024 7:47 AM EST) Only the most recent of16 resultswithin the time period is included. [facility] Glucometer, POC 89 65 - 199 mg/dL 08/02/2024 7:47 AM EST [facility] Comment:Supplemental ranges: <140 mg/dL before meals <180 mg/dL all other times of the day. Blood CAPILLARY BLOOD / Unknown 08/02/2024 7:47 AM EST 08/02/2024 7:47 AM EST Arnel Parker MD POINT OF CARE TEST O RDERABLES [facility] [place] [address] * Scan Doc: Telemetry Strips (08/02/2024 7:37 AM EST) Only the most recent of3 resultswithin the time period is included. Narrative 08/02/2024 7:37 AM EST Ordered by an unspecified provider. Scanning Provider MEDIA MGR SCAN EXT O RDR/RSLT * Potassium (08/01/2024 8:39 PM EST) Only the most recent of4 resultswithin the time period is included. [facility] Potassium 4.0 3.5 - 5.0 mMol/L 08/01/2024 9:21 PM EST [facility] Blood VENOUS BLOOD SPECIMEN / Unknown Venipuncture / Unknown 08/01/2024 8:39 PM EST 08/01/2024 8:51 PM EST Jay Silverio MD CHEMISTRY ORDERABL ES [facility] [place] [address] * (ABNORMAL) Cooximetry, POC (08/01/2024 10:45 AM EST) Only the most recent of2 resultswithin the time period is included. [facility] pO2, Coox 32 mmHg 08/01/2024 10:48 AM [facility] Hemoglobin, Coox 12.9(L) 13.7 - 16.5 g/dL 08/01/2024 10:48 AM [facility] Oxyhemoglobin, Coox 66.7 % 08/01/2024 10:48 AM [facility] Carboxyhemoglo bin, Coox 1.1 % 08/01/2024 10:48 AM [facility] Comment: Nonsmokers: 0.5-1.5% COHB ?? Smokers: Variable ??but usually less than 10% ?? Toxic: 20-30% COHB ?? Lethal: Greater than 60% COHB Methemoglobin, Coox 0.3 <=1.5 % 08/01/2024 10:48 AM [facility] Blood (Mixed Venous) 08/01/2024 10:45 AM EST 08/01/2024 10:48 AM EST Arnel Parker MD POINT OF CARE TEST O RDERABLES [facility] [place] [address] * CARDIAC CATHETERIZATION (07/31/2024 5:53 PM EST) Only the most recent of2 resultswithin the time period is included. Anatomical Region Laterality Modality Other Narrative 08/01/2024 12:37 PM EST ?[facility] ? Cardiac Catheterization/Intervention Report ? Patient Name: Jan Korey Mittal. ? Procedure Date: 07/31/2024 ? A #: [id number] ? Primary Physician: Janelle, Maldonado T ? Case #: [id number] ? File Name: [id number] ? Catheterization Order Number: [id number] ? [facility] ?[employer] Machine Feeder [facility] ? Final Report [place], [place] ? Patient Name: ? Korey P. Montoya ?ID#: ?[id number] ? : ?1950 ? Procedure Date: ? July 31, 2024 ?Case #: ? [id number] ? Room: ? 1 ? Case Physician: [...] ? 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 [...] Procedure Note Maldonado Luis MD - 08/01/2024 [facility] Cardiac Catheterization/Intervention Report Patient Name: JanKorey Procedure Date: 07/31/2024 A #: [id number] Primary Physician: Maldonado Luis Case #: [id number] File Name: [id number] Catheterization Order Number: [id number] [facility] FinalReport [place], [place] Patient Name: Korey Montoya ID#:[id number] :1950 Procedure Date: July 31, 2024 Case [...] as ASA Class IV. The [facility] clinical frailtyscale is 4: Vulnerable. [...] procedures. Comments: Impella removed from the right DIAMOND FINISHING SUPERVISOR with deployment of Perclose and Angioseal. [...] 7.45 07/31/2024 8:30 AM [facility] PCO2, Arterial 29(L) 35 - 45 mmHg 07/31/2024 8:30 AM [facility] PO2, Arterial 71(L) 85 - 104 mmHg 07/31/2024 8:30 AM [facility] Bicarbonate, Arterial 20.6 20.0 - 26.0 mmol/L 07/31/2024 8:30 AM [facility] Base Excess, Arterial -3.0 -3.0 - 3.0 mmol/L 07/31/2024 8:30 AM [facility] Hemoglobin, Arterial 12.3(L) 13.7 - 16.5 g/dL 07/31/2024 8:30 AM [facility] Oxyhemoglobin, Arterial 94.4 94.0 - 97.0 % 07/31/2024 8:30 AM [facility] Carboxyhemoglobin , Arterial 0.7 % 07/31/2024 8:30 AM [facility] Comment: Nonsmokers: 0.5-1.5% COHB ?? Smokers: Variable ??but usually less than 10% ?? Toxic: 20-30% COHB ?? Lethal: Greater than 60% COHB Methemoglobin, Arterial 0.3 <=1.5 % 07/31/2024 8:30 AM [facility] Sodium, Arterial 138 135 - 145 mmol/L 07/31/2024 8:30 AM [facility] Potassium, Arterial 3.5 3.5 - 5.0 mmol/L 07/31/2024 8:30 AM [facility] Chloride, Arterial 109(H) 98 - 107 mmol/L 07/31/2024 8:30 AM [facility] Lactate, Arterial 0.8 0.5 - 2.2 mmol/L 07/31/2024 8:30 AM [facility] Fraction of Inspired Oxygen 21 % 07/31/2024 8:30 AM [facility] PF Ratio 338 Ratio 07/31/2024 8:30 AM [facility] Comment:PF ratio calculated using the non-temperature corrected pO2 result. IONIZED CALCIUM, ARTERIAL 1.08(L) 1.15 - 1.33 mmol/L 07/31/2024 8:30 AM [facility] Glucose, Arterial 86 65 - 199 mg/dL 07/31/2024 8:30 AM [facility] Comment:Glucose Concentratio n >=200 mg/dL plus symptoms is consistent with Diabetes Mellitus. Blood ARTERIAL BLOOD / Unknown 07/31/2024 8:29 AM EST 07/31/2024 8:30 AM EST Arnel Parker MD POINT OF CARE TEST O RDERABLES [facility] [place] [address] * (ABNORMAL) Hepatic Function Panel (07/31/2024 1:08 AM EST) Albumin 3.1(L) 3.2 - 5.2 g/dL 07/31/2024 1:46 AM [facility] Aspartate Aminotransferase 192(H) <=39 unit/L 07/31/2024 1:46 AM [facility] Alanine Aminotransferase 59(H) 0 - 55 unit/L 07/31/2024 1:46 AM EST [facility] Alkaline Phosphatase 46 40 - 130 unit/L 07/31/2024 1:46 AM EST [facility] Bilirubin, Total 0.4 <=1.3 mg/dL 07/31/2024 1:46 AM EST [facility] Bilirubin, Direct <0.2 0.0 - 0.3 mg/dL 07/31/2024 1:46 AM EST [facility] Protein, Total 5.0(L) 6.1 - 8.0 g/dL 07/31/2024 1:46 AM EST [facility] Blood VENOUS BLOOD SPECIMEN / Unknown Venipuncture / Unknown 07/31/2024 1:08 AM EST 07/31/2024 1:18 AM EST Arnel Parker MD CHEMISTRY ORDERABLES Performing Organization Address City/[facility]/[place] [address] * (ABNORMAL) Phosphorus (07/30/2024 3:08 PM EST) Only the most recent of3 resultswithin the time period is included. Phosphorus 2.1(L) 2.5 - 4.5 mg/dL 07/30/2024 3:58 PM EST [facility] Blood VENOUS BLOOD SPECIMEN / Unknown Venipuncture / Unknown 07/30/2024 3:08 PM EST 07/30/2024 3:12 PM EST Jay Silverio MD [place] [address] * ECHO LMTD W CONTRAST W LMTD SPEC DOPP COLOR DOPP (07/30/2024 11:42 AM EST) Anatomical Region Laterality Modality Cardiac Other 07/30/2024 10:2 2 AM EST Narrative 07/30/2024 12:34 PM EST [address] [place] [address] ? Echocardiogram Report Name: KOREY MONTOYA ? Study Date: 07/30/2024 10:22 AMBP: 124/66 mmHg : 1950 ? Height: 168 cm ? Account: [id number] Age: 74 yrs ? Weight: 65 kg Gender: Male ?BSA: 1.7 m2 Ordering Physician: Jay Silverio MD Referring Physician: DEONDRE FERRERA Performed By: OMERO Millan Reason For Study: ST elevation myocardial infarction involving left anterior descending (LAD) coronary artery Interpreting Fellow: Ivan Hernandez. Exam Location: [facility]. Interpretation Summary Left ventricle is severely [...] Compared to the overnight study by the offset second press operator fellow the impella position is stable. 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 Procedure Limited - 98354. Image enhancement Definity was used for both [...] [place] Banda MD - 07/30/2024 [address] [place] [address] Echocardiogram Report Name: MONTOYAKOREY Study Date: 0:22 AMBP: 124/66 mmHg : 1950 Height: 168 cm Account: [id number] Age: 74 yrs Weight: 65 kg Gender: Male BSA: 1.7 m2 Ordering Physician: Jay Silverio MD Referring Physician: DEONDRE FERRERA Performed By: OMERO Millan Reason For Study: ST elevation myocardial infarction involving leftanterior descending (LAD) coronary artery Interpreting Fellow: Ivan Hernandez. Exam Location: [facility]. Interpretation Summary Left ventricle is severely [...] Compared to the overnight study by the offset second press operator fellow the impella positionis stable. The global left ventricular systolic function has improvedpredominantly via recruitment outside the LAD territory which remains akinetic. Procedure Limited - 14285. Image enhancement Definity was used for both [...] of5 resultswithin the time period is included. [facility] Troponin-T, High Sensitivity 8,651(H) <=22 ng/L 07/30/2024 [...] [facility] Test Catalog Troponin - [email or web address].org/catalogs/565/[email or web address]/32477 Reference: Fourth [place] Definition of Myocardial Infarction. Journal of the [employer] 2018;72:3164-1008 Blood VENOUS BLOOD SPECIMEN / Unknown Venipuncture / Unknown 07/30/2024 8:09 AM EST 07/30/2024 8:26 AM EST Jay Silverio MD CHEMISTRY ORDERABL ES Performing Organization Address [facility]/State/ZIP Co de Phone Number [facility] [place] [address] * Echocardiogram Transthoracic (07/30/2024 1:41 AM EST) Anatomical Region Laterality Modality Cardiac Other 07/30/2024 1:41 AM EST Narrative 07/30/2024 8:23 AM EST [address] [place] [address] ? Echocardiogram Report Name: KOREY MONTOYA ? Study Date: 07/30/2024 01:41 AM : 1950 ? Height: 168 cm Age: 74 yrs ? Weight: 5.9 kg Gender: Male ?BSA: 0.63 m2 Performed By: Beatris Ching MD Reason For Study: STEMI, [place] History: ASCVD, HTN, HLD Interpreting Fellow: Beatris Ching. Interpretation Summary This is a limited study performed by a fellow offset second press operator to evaluate for cardiogenic shock with [...] study available for comparison. Procedure Limited - 45398. Suboptimal quality. There is sinus bradycardia. Left [...] Note [place] Banda MD - 07/30/2024 [address] [place] [id number] Echocardiogram Report Name: KOREY MONTOYA Study Date: 07/30/2024 01:41AM : 1950 Height: 168 cm Age: 74 yrs Weight: 5.9 kg Gender: Male BSA: 0.63 m2 Performed By: Beatris Ching MD Reason For Study: STEMI, [place] History: ASCVD, HTN, HLD Interpreting Fellow: Beatris Ching. Interpretation Summary This is a limited study performed by a fellow offset second press operator to evaluate forcardiogenic shock with impella in. [...] study available for comparison. Procedure Limited - 68173. Suboptimal quality. There is sinus bradycardia. Left [...] Recheck AB POSITIVE 07/29/2024 10:13 PM EST [facility] Blood VENOUS BLOOD SPECIMEN / Unknown Venipuncture / Unknown 07/29/2024 6:43 PM EST 07/29/2024 7:15 PM EST Jay Silverio MD BLOOD BANK LAB ORD ERABLES [facility] [place] [address] * Type and screen ([facility]) (07/29/2024 5:56 PM EST) ABORH Type AB POSITIVE 07/29/2024 9:44 PM EST [facility] PATIENT HISTORY Not Found 07/29/2024 9:44 PM EST [facility] Expires at [id number] on: 08/01/2024 07/29/2024 9:44 PM EST [facility] ANTIBODY SCREEN AUTOMATED Negative 07/29/2024 9:44 PM EST [facility] T&S only valid at [facility] 07/29/2024 9:44 PM EST [facility] Blood VENOUS BLOOD SPECIMEN / Unknown Venipuncture / Unknown 07/29/2024 5:56 PM EST 07/29/2024 6:07 PM EST Narrative [facility] - 07/29/2024 9:44 PM EST This Type and Screen result is only valid at the [facility] Jay Silverio MD BLOOD BANK LAB ORD ERABLES Performing Organization Address [facility] de Phone Number [facility] [place] [address] * Blood culture (07/29/2024 4:08 PM EST) Only the most recent of2 resultswithin the time period is included. Blood Culture No growth at 120 hours 08/03/2024 5:01 PM EST [facility] Blood VENOUS BLOOD SPECIMEN / Unknown Venipuncture / Unknown 07/29/2024 4:08 PM EST 07/29/2024 4:15 PM EST Jay Silverio MD MICROBIOLOGY - BLO OD ORDERABLES Performing Organization Address [facility] Co de Phone Number [facility] [place] [address] * XR Chest One View (07/29/2024 2:30 PM EST) Only the most recent of3 resultswithin the time period is included. WORKSTATION ID [id number] RAD Anatomical Region Laterality Modality Chest N/A [...] have questions please contact the health career and guidance counselor that requested your imaging first. ? Electronically signed by: Chris Candelaria MD, [facility] ([phone]), at 07/29/2024 3:21 PM Narrative 07/29/2024 3:21 [...] who have questions please contactthe health career and guidance counselor that requested your imaging first. Electronically signed by: Chris Candelaria MD, [facility]([phone]), at 07/29/2024 3:21 PM Vahe Marvin MD IMG DX ORDERABLES * [facility] [place] (07/29/2024 2:03 PM EST) Thyroid Stimulating Hormone 0.70 0.27 - 4.20 mcIU/mL 07/29/2024 2:52 PM EST [facility] Blood VENOUS BLOOD SPECIMEN / Unknown Venipuncture / Unknown 07/29/2024 2:03 PM EST 07/29/2024 2:14 PM EST Vahe Marvin MD CHEMISTRY ORDERABLES Performing Organization Address City/[facility]/ZIP Co de Phone Number [facility] [place] [address] * CRP, acute inflammation (07/29/2024 2:03 PM EST) C-Reactive Protein <3.0 <=4.9 mg/L 07/29/2024 2:52 PM EST [facility] Blood VENOUS BLOOD SPECIMEN / Unknown Venipuncture / Unknown 07/29/2024 2:03 PM EST 07/29/2024 2:14 PM EST Vahe Marvin MD CHEMISTRY ORDERABLES Performing Organization Address [facility]/ZIP Co de Phone Number [facility] [place] [address] * (ABNORMAL) APTT (07/29/2024 2:03 PM EST) Partial Thromboplastin Time >160([facility]) 25 - 37 sec 07/29/2024 2:56 PM EST [facility] Blood VENOUS BLOOD SPECIMEN / Unknown Venipuncture / Unknown 07/29/2024 2:03 PM EST 07/29/2024 2:13 PM EST Vahe Marvin MD HEMATOLOGY ORDERABLE S Performing Organization Address City/[facility]/ZIP Co de Phone Number [facility] [place] [address] * (ABNORMAL) Prothrombin Time (07/29/2024 2:03 PM [...] EST Vahe Marvin MD HEMATOLOGY ORDERABLE S [facility] [place] [address] * Hemoglobin A1c (07/29/2024 2:03 PM EST) [...] red blood cell turnover may not be screening representative of glycemic control. Reference Interval: 4.3 [...] into estimated average glucose values. ??Diabetes Care 2008:31(8):0602-6452. Additional resources are available on the ADA website (diabetes.org). Vahe Marvin MD CHEMISTRY ORDERABLES [facility] [place] [address] * Lipid Panel (Reflex Direct LDL) (07/29/2024 2:03 PM EST) [facility] Cholesterol, Total 133 mg/dL 07/29/2024 2:52 PM [facility] Comment: Desirable: < 200 mg/dL Borderline High: 200 - 239 mg/dL High: > or = 240 mg/dL Triglyceride 45 mg/dL 07/29/2024 2:52 PM [facility] Comment: Normal: <150 mg/dL Borderline High: 150-199 mg/dL High: 200-499 mg/dL Very High: > or =500 mg/dL HDL Cholesterol 58 mg/dL 4 2:52 PM [facility] Comment:Males: High Risk: <4 0 mg/dL LDL Cholesterol 64 mg/dL 4 2:52 PM [facility] Comment: Desirable: <100 mg/dL Above Desirable: 100-129 mg/dL Borderline High: 130-159 mg/dL High: 160-189 mg/dL Very High: > or =190 mg/dL Note: LDL calculation updated to the NIH LDL formula as of 04/15/2024 Non-HDL Cholesterol 75 mg/dL 07/29/2024 2:52 PM [facility] Comment: Desirable: <130 mg/dL [...] ischemic stroke, symptomatic peripheral artery disease) Vahe Mavrin MD CHEMISTRY ORDERABLES [facility] [place] [address] * (ABNORMAL) Blood Gas, Venous POC (07/29/2024 2:01 PM EST) pH, Venous 7.30(L) 7.32 - 7.42 07/29/2024 2:02 PM EST [facility] PCO2, Venous 42 38 - 58 mmHg 07/29/2024 2:02 PM [facility] PO2, Venous 39 16 - 65 mmHg 07/29/2024 2:02 PM EST [facility] Bicarbonate, Venous 20.1(L) 22 - 31 mmol/L 07/29/2024 2:02 PM EST [facility] Base Excess, Venous -6.4(L) 1.9 - 4.5 mmol/L 07/29/2024 2:02 PM EST [facility] Hemoglobin, Venous 14.2 13.7 - 16.5 g/dL 07/29/2024 2:02 PM [facility] Oxyhemoglobin, Venous 69.3 % 07/29/2024 2:02 PM EST [facility] Carboxyhemoglobin , Venous 0.8 % 07/29/2024 2:02 PM EST [facility] Comment: Nonsmokers: [...] mmol/L 07/29/2024 2:02 PM [facility] Glucose, Venous 229(H) 65 - 199 mg/dL 07/29/2024 2:02 PM [facility] Comment:Glucose Concentratio n >=200 mg/dL plus symptoms is consistent with Diabetes Mellitus. Lactate, Venous 3.1(H) 0.5 - 2.2 mmol/L 07/29/2024 2:02 PM [facility] Ionized Calcium, Venous 1.11(L) 1.15 - 1.33 mmol/L 07/29/2024 2:02 PM [facility] Blood VENOUS BLOOD SPECIMEN / Unknown 07/29/2024 2:01 PM EST 07/29/2024 2:02 PM EST Vahe Marvin MD POINT OF CARE TEST O RDERABLES [facility] [place] [address] * (ABNORMAL) BLOOD GAS, POC (07/29/2024 12:46 PM EST) Only the most recent of2 resultswithin the time period is included. Sodium, POC 139 135 - 145 mmol/L 07/30/2024 7:30 AM [facility] Potassium, POC 3.4(L) 3.5 - 5.0 mmol/L 07/30/2024 7:30 AM [facility] pH, POC 7.33(L) 7.35 - 7.45 07/30/2024 7:30 AM [facility] Ionized Calcium, POC 1.13(L) 1.15 - 1.33 mmol/L 07/30/2024 7:30 AM [facility] pCO2, POC 38 35 - 45 mmHg 07/30/2024 7:30 AM [facility] pO2, POC 94 85 - 104 mmHg 07/30/2024 7:30 AM [facility] Base Excess, POC -6.0(L) -3.0 - 3.0 mmol/L 07/30/2024 7:30 AM [facility] Hematocrit, POC 39.0(L) 40.5 - 48.5 %PCV 07/30/2024 7:30 AM [facility] Hemoglobin, POC 13.3(L) 13.7 - 16.5 g/dL 07/30/2024 7:30 AM [facility] Comment:The calculation of h emoglobin from hematocrit assumes a normal MCHC. Bicarbonate, POC 19.8(L) 20.0 - 26.0 mmol/L 07/30/2024 7:30 AM [facility] Carbon Dioxide, POC 21(L) 22 - 31 mmol/L 07/30/2024 7:30 AM [facility] Blood VENOUS BLOOD SPECIMEN / Unknown 07/29/2024 12:46 PM EST 07/30/2024 7:30 AM EST Vahe Marvin MD POINT OF CARE TEST O RDERABLES Performing Organization Address City/State/[facility] Co de Phone Number [facility] [place] [address] * External Cardiology Result (07/29/2024 10:13 AM EST) Anatomical Region Laterality Modality Other Historical Provider EXTERNAL CARDIOLO GY RESULT * Scan Doc: EEG (07/29/2024 9:44 AM EST) Historical Provider MEDIA MGR SCAN EX T ORDR/RSLT * COLONOSCOPY (08/30/2023 10:57 AM EST) [facility] Signature COLONOSCOPY [facility] Endoscopy Procedure Date: 08/30/2023 10:57 AM ? Patient Name: Korey Montoya ? Date of : 1950 ? Age: 73 ? Order #: [id number] ? Instrument Name: [id number] ? Procedure: ? Colonoscopy Indications: ? Rectal pain Providers: ? Tika Brooks Ty ? Aidan Referring MD: ?Yoel L. Artis Medicines: ? Midazolam 4.5 mg IV, [...] preparation was evaluated ? using the BBPS ([place] Bowel ? Preparation Scale) with scores of: [...] Content of discussion: pre-arrest limitations Care Teams Hand Hardener Relationship Specialty Start Date End Date Alexia Mtz APRN [address] [place] [address] PCP - General Family Medicine 07/30/24
--- OUTSIDE RECORDS SUMMARY | 2024-10-03 10:54 | XMS_ITS | Encounter Summary ---
Author Organization [facility] [place] [address] Care Team Providers Care Dialysis Clinical Manager Name Role Phone Alexia Mtz FREDRICK Primary Care Provider [phone] Encounter Details Date Type Department Care Team (Late st Contact Info) Description 10/02/2024 Telephone Cardiology at [address] [phone] Tre Gibbons, RN Social History Tobacco Use Types Packs/Day Years Used Date Smoking Tobacco: Former Cigarettes Smokeless Tobacco: Never Alcohol Use Standard Drinks/Week Comments Not Currently 0 (1 standard drink = 0.6 oz pur e alcohol) [facility] Utilities Answer Date Recorded In the [...] any time in the past 12 m [facility], were you homeless or living [...] encounter Miscellaneous Notes * Telephone Encounter - Tre Gibbons RN - 10/02/2024 9:17 AM EST I reached out to Mr. Montoya in response to [employer] message sent by Mushtaq Murphy APRN: I was looking through your chart and would like to increase your spironolactone to a full tab of 25 mg. Mr. Montoya return verbalizes understanding of the above. We also reviewed the [facility] team and I encouraged him to call us anytime, as well as record weight and blood pressure regularly. documented in this encounter Plan of Treatment Upcoming Encounters Date Type Department Care Team (Late st Contact Info) Description 10/31/2024 9:30 AM EST Appointment Non-[place] [phone] Mushtaq Murphy APRN 10/31/2024 11:00 AM EST Office Visit Cardiology at [address] [phone] Mushtaq Murphy APRN documented as of this encounter Visit Diagnoses Not on filedocumented in this encounter Care Teams Dialysis Clinical Manager Relationship Specialty Start Date End Date Alexia Mtz, FREDRICK [address] [place] [address] PCP - General Family Medicine 07/30/24 documented as of this encounter
--- OUTSIDE RECORDS SUMMARY | 2024-10-03 10:54 | XMS_ITS | Encounter Summary ---
[place] [address] Care Team Providers Care Scooping Machine Tender Name Role Phone Alexia Mtz FREDRICK Primary Care Provider [phone] Reason for Referral * Diagnostic Test (Routine) - Authorized Specialty Diagnoses / Procedures Referred By [facility] Referred To Contact Cardiology Diagnoses HFrEF (heart failure with reduced ejection fraction) Procedures Echocardiogram Transthoracic Mushtaq Royal APRN [facility] [place] [address] Referral ID Status Reason Start Date Expiration Date Visits Requested Visits Authorized [id number] Authorized Specialty Service Requested 10/02/2024 10/02/2025 1 1 * Consultation (Routine) - Authorized Specialty Diagnoses / Procedures [facility] Referred To Contact Cardiology Diagnoses HFrEF (heart failure with reduced ejection fraction) ST elevation myocardial infarction involving left anterior descending (LAD) coronary artery Mushtaq Royal APRN [facility] [place] [address] Referral ID Status Reason Start Date Expiration Date Visits Requested Visits Authorized [id number] Authorized Consult, Test & Treat 10/02/2024 10/02/2025 36 36 * Diagnostic Test (Routine) - Closed Specialty Diagnoses / Procedures Referred By Contac t Referred To Contact Cardiology Diagnoses HFrEF (heart failure with reduced ejection fraction) Procedures Echocardiogram Transthoracic Mushtaq Royal APRN [facility] [place] [address] Referral ID Status Reason Start Date Expiration Date V isits Requested Visits Authorized [id number] Closed Specialty Service Requested 10/01/2024 10/01/2025 1 1 * Consultation (Routine) - Authorized Specialty Diagnoses / Procedures Referred By Contac t Referred To Contact Diagnoses HFrEF (heart failure with reduced ejection fraction) NUTRITION Initial MNT Mushtaq Royal APRN Copeland, Jean M, [place] [facility] [place] [address] Referral ID Status Reason Start Date Expiration Date Visits Requested Visits Authorized [id number] Authorized Continuity of Care 10/01/2024 10/01/2025 1 1 Reason for Visit * Consultation (Routine) - Closed Specialty Diagnoses / Procedures Referred By Contac t Referred To Contact Cardiology Diagnoses HFrEF (heart failure with reduced ejection fraction) [facility] S/P D/C acute HFrEF Sanjiv Villagran MD [facility] [place] [address] Mushtaq Royal APRN [facility] [place] [address] Referral ID Status Reason Start Date Expiration Date V isits Requested Visits Authorized [id number] Closed Consult, Test & Treat 08/04/2024 08/04/2025 1 1 Encounter Details Date Type Department Care Team (Late st Contact Info) Description 10/01/2024 10:00 AM EST Office Visit Cardiology at [address] [address] Mushtaq Royal APRN HFrEF (heart failure with reduced ejection fraction); ST elevation myocardial infarction involving left anterior descending (LAD) coronary artery Social History Tobacco Use Types Packs/Day Years [...] in a detention (including now)? No 07/30/2024 IPV Inpatient Questions [...] Pulse 63 10/01/2024 9:53 AM EST Temperature - - Respiratory Rate - - Oxygen Saturation 98% 10/01/2024 9:53 AM EST Inhaled Oxygen Concentration - - Weight 62.3 kg (137 lb 6.4 oz) 10/01/2024 9:53 A M EST Height 167.6 cm (5' 6) 10/01/2024 9:53 AM EST Body Mass Index 22.18 10/01/2024 9:53 AM EST documented in this encounter Patient Instructions * Patient Instructions* Mushtaq Royal APRN - 10/01/2024 10:00 AM EST It was a pleasure to meet you today. No changes to your medications today. I will contact in regard to echocardiogram results. Continue to monitor for weight gain, weight 2 lbs in 24 hours or 5 lbs in a week. Please call the clinic for weight gain or any question [phone] documented in this encounter Progress Notes * Mushtaq Roayl APRN - 10/01/2024 10:00 AM EST Images from the original note were not included. [facility] Section of Advanced Heart Failure Cardiology and Pulmonary Hypertension [place] [place] [id number] Name: Korey Bermudez Date: 10/01/2024 Referring provider: Sanjiv Villagran MD [facility] [place] [address] History of Present Illness 74 y.o. male with a past medical history of: Ischemic cardiomyopathy EF 33% CAD STEMI - 07/31/2024 - PCI to LAD HLD HTN BPH Patient was admitted on 07/29/2024 after being airlifted by helicopter to [facility] due tofindings of ST elevation patient had awoken that morning with substernal chest pain with bilateral arm discomfort. Patient reported that his discomfort was aching in character was an 8/10. He was seen at the outside hospital anterior, inferior, and lateral ST elevation on EKG. On arrival to [facility] heunderwent left heart catheterization which showed 100% occlusion of the LAD. There was no significant disease to the RCA, LMCA, or left circumflex. Drug- eluting stent was placed in the LAD with some residual distal disease meriting placement of an overlapping distal stent. Echocardiogram showed apical akinesis and inferior hypokinesis with an EF of 20%. Right heart catheterization showed elevated right filling pressures. At that time an Impella was placed and he was transferred to the [facility] for an initial cardiac index of 1.97 which improved to 2.2 after Impella placement. Patient required hemodynamic support with vasopressors and eventually on dobutamine. Patient remained in the [facility] until downgraded on 08/01/2021. Patient was discharged from [facility] on 08/04/2024 and presents today in the advanced heart failure clinic to establish and continue care. Today he reports: He reports that he has been doing ok since his hospitalization. He does report that last night he had some chest pain last evening that resolved with rest. Currently denies cp, palpations, SOB, BOLTON, orthopnea, PND, syncope or edema, Endorses fatigue usually at its worse at 1400 hours in the afternoon. Weights 135-140 BPM Appetite is good. Social History: Denies EtoH Denies tobacco - former Denies recreational drug use. Family History: No significant family cardiac history. Review of Systems All other 12 point review of systems negative except as noted above. Full Medication List Outpatient Medications Marked as Taking for the 10/01/24 encounter (Office Visit) with Mushtaq Royal APRN Medication Sig Dispense Refill aspirin EC 81 mg EC (DR) tablet Take 1 tablet by mouth daily. 30 tablet 3 atorvastatin (Lipitor) 80 mg tablet Take 1 tablet by mouth every evening. 90 tablet 3 clopidogreL (Plavix) 75 mg tablet Take 1 tablet by mouth daily. 90 tablet 3 metoprolol succinate XL (Toprol-XL) 25 mg ER 24 hr tablet Take 1 tablet by mouth daily. 30 tablet 12 spironolactone (Aldactone) 25 mg tablet Take 0.5 tablets by mouth daily for 90 days. 15 tablet 2 nitroGLYcerin (Nitrostat) 0.[address] 1 tablet under the tongue every 5 minutes as needed for Chest pain. 90 tablet 12 dapagliflozin propanediol (Farxiga) 10 mg tablet Take 1 tablet by mouth daily for 60 days. 30 tablet 1 tamsulosin (Flomax) 0.4 mg capsule Take 0.8 mg by mouth daily. losartan (Cozaar) 25 mg tablet Take 25 mg by mouth daily. Psyllium Seed-Sucrose (0) Powder Take by mouth. Allergies No Known Allergies Physical Exam Vitals: 10/01/24 0953 BP: 102/62 Pulse: 63 SpO2: 98% Weight: 62.3 kg (137 lb 6.4 oz) Height: 167.6 cm (5' 6) General: NAD Neck: JVP not elevated Cardiac: RRR, S1/S2 Lungs: CTAB Abdomen: Soft NT/ND Extremities: WWP w/ no edema Cardiology History and Data EKG Echocardiogram 10/01/2024: TTE: LV systolic function moderately reduced, EF 33% with extensive akinesis at the apexthat extends to the mid edilma-septum. No ventricular septal defects. No LV thrombus, RV normal size and function. Normal LA, no significant valve abnormalities. 07/30/2024: TTE: LV is severely dilated, mildly increased thickness of the basal septum with no obstruction to LV outflow. Systolic function is moderately reduced with an EF of 33%. Segmental wall motion abnormalities. There is no left ventricular thrombus. RV is normal size RV apex is akinetic. Global systolic RV function is probably normal. LA mildly dilated. Mild to moderate TR, mild MR, mild AR. MRI Non invasive ischemic evaluation [facility] 07/29/2024: Left main normal and free of disease. LAD, single discrete total occlusion of the proximal segment, left circumflex is normal. Disease, RCA normal and free of disease. Drug-eluting stent to the proximal and distal LAD [facility] 07/29/2024: (prior to impella) RA 16, PA 45/20 (33), wedge 27, cardiac output 3.36, cardiac index 1.95. SvO2 65% (Post impella) RA 11, PA 40/13 (22), wedge 22, cardiac output 4.76, cardiac index 2.77 EP Procedures and Monitors Cardiac Surgical History Assessment/Plan: In summary, Korey Bermudez is a 74 y.o. male with the above past medical history who presents to establish care for reduced ejection fraction s/p STEMI in 07/2024. Mr. Bermudez appears to be doing well from a heart failure standpoint. He currently has no symptoms of volume overload to include elevated JVD, shortness of breath, increased weight, or lower extremity edema. His most recent set of labs to include electrolytes are unremarkable, renal function is normal. Liver panel. proBNP is elevated at 2150. There is no previous BMP that was collected during hishospitalization so unclear if this is elevated, reduced, or trending the same. His current GDMT includes metoprolol, losartan, spironolactone, and Farxiga. He has not had any need for diuretic use. His last ejection fraction was 33%. Unfortunately he did have some chest discomfort last evening which did resolve with rest and has not had to use any of his as needed sublingual nitroglycerin. Twelve-lead was completed today which showed a normal sinus rhythm and there is no ST changes in the lateral leads as noted in previous EKG he does show inverted T waves in anterior septal leads. Due to recent STEMI that he experienced in July 2024 we repeated echocardiogram today to evaluate his current ejection fraction and to evaluate his ventricular septal wall for any septal abnormalities. Repeat echo showed an EF of 33% with extensive akinesis of the apex that extends to the mid anterior septum which correlates with previous stenting. There was no ventricular septal defects seen, no LV thrombus, and no significant valve disease. We have placed a referral to cardiac rehab for him. We had a discussion about his current EF and itbeing recorded at 33%. We discussed that at below 35% it is recommended that an ICD is placed due to the increased risk of ventricular arrhythmias. We will plan for a repeat limited echo after 90 days on GDMT. We have discussed that if he has any additional chest pain or discomfort that requires him to use NTG he should be evaluated in his local emergency department. He verbalized understanding. We will plan on follow up in about 4 weeks or sooner if needed. HFrEF EF: 33% NYHA Class: III ACC Stage: C Etiology: ischemic Volume Status: euvolemic Dry Weight: 135 # Pro-BNP:2150 Therapy: Beta-elvis: Metoprolol Succinate 25 mg ACEi/ARB/ARNI: losartan 12.5 mg MRA: Spironolactone 12.5 mg SGLT2-I: farxiga 10 mg Diuretic: has not required ICD: Last EF 33% - will re-visit after repeat echo if EF has not recovered above 35% ASCVD - LOW to LAD -- ASA -- clopidogrel -- atorvastatin HLD -- atorvastatin HTN -- losartan No follow-ups on file. Mushtaq Royal APRN Advanced Cardiac Disease and Pulmonary Hypertension documented in this encounter Plan of Treatment Upcoming Encounters Date Type Department Care Team (Late st Contact Info) Description 10/31/2024 9:30 AM EST Appointment [place] [address] Mushtaq Royal APRN 10/31/2024 11:00 AM EST Office Visit Cardiology at [address] [address] Mushtaq Royal APRN Scheduled Orders Name Type Priority Associated Diagnoses Order Schedule Echocardiogram Transthoracic Echocardiography Routine HFrEF (heart failure with reduced ejection fraction) Expected: 10/02/2024, Expires: 10/02/2025 Scheduled Referrals Name Type Priority Associated Diagnoses Orde r Schedule Referral to Nutrition Services Outpatient Referral Routine HFrEF (heart failure with reduced ejection fraction) Ordered: 10/01/2024 Referral to Cardiac Rehab Outpatient Referral Routine HFrEF (heart failure with reduced ejection fraction) ST elevation myocardial infarction involving left anterior descending (LAD) coronary artery Ordered: 10/02/2024 documented as of this encounter Procedures Procedure Name Priority Date/Time Associated Diagnosis Comments EKG 12-LEAD Routine 10/01/2024 10:05 AM EST HFrEF (heart failure with reduced ejection fraction) documented in this encounter Results * (ABNORMAL) pro-Brain Natriuretic Peptide (10/01/2024 12:33 PM EST) NT-proBNP 2,150(H) <=124 pg/mL 10/01/2024 1:18 PM EST [facility] Blood VENOUS BLOOD SPECIMEN / Unknown Venipuncture / Unknown 10/01/2024 12:33 PM EST 10/01/2024 12:38 PM EST Mushtaq Royal TRAIN [employer] CHEMISTRY ORDERABLE S [facility] [place] [address] * Magnesium (10/01/2024 12:33 PM EST) Magnesium 0.94 0.69 - 1.07 mMol/L 10/01/2024 1:18 PM EST [facility] Blood VENOUS BLOOD SPECIMEN / Unknown Venipuncture / Unknown 10/01/2024 12:33 PM EST 10/01/2024 12:38 PM EST Mushtaq Royal TRA[employer] CHEMISTRY ORDERABLE S Performing Organization Address City/[facility]/ZIP Co de Phone Number [facility] [place] [address] * Comprehensive metabolic panel Non-fasting (10/01/2024 12:33 PM EST) Glucose 76 65 - 199 mg/dL 10/01/2024 1:18 PM EST [facility] Comment:Glucose Concentratio n >=200 mg/dL plus symptoms is consistent with Diabetes Mellitus. Blood Urea Nitrogen 17 10 - 20 mg/dL 10/01/2024 1:18 PM [facility] Creatinine 1.06 0.80 - 1.50 mg/dL 10/01/2024 1:18 PM [facility] Sodium 142 135 - 145 mMol/L 10/01/2024 1:18 PM [facility] Potassium 4.1 3.5 - 5.0 mMol/L 10/01/2024 1:18 PM [facility] Chloride 105 98 - 107 mMol/L 10/01/2024 1:18 PM [facility] Carbon Dioxide 25 22 - 31 mMol/L 10/01/2024 1:18 PM [facility] Anion Gap 12 5 - 15 mMol/L 10/01/2024 1:18 PM [facility] Calcium 9.5 8.5 - 10.5 mg/dL 10/01/2024 1:18 PM [facility] Protein, Total 7.2 6.1 - 8.0 g/dL 10/01/2024 1:18 PM [facility] Albumin 4.3 3.2 - 5.2 g/dL 10/01/2024 1:18 PM [facility] Aspartate Aminotransferase 18 <=39 unit/L 10/01/2024 1:18 PM [facility] Alanine Aminotransferase 18 0 - 55 unit/L 10/01/2024 1:18 PM [facility] Alkaline Phosphatase 94 40 - 130 unit/L 10/01/2024 1:18 PM [facility] Bilirubin, Total 0.4 <=1.3 mg/dL 10/01/2024 1:18 PM [facility] Est Glomerular Filtration Rate - Male 75 mL/min/1. 73 m?? 10/01/2024 1:18 PM [facility] Comment: This [...] Foundation Fasting Status No 10/01/2024 1:18 PM [facility] Blood VENOUS BLOOD SPECIMEN / Unknown Venipuncture / Unknown 10/01/2024 12:33 PM EST 10/01/2024 12:38 PM EST Musthaq Royal TRA[employer] CHEMISTRY ORDERABLE S [facility] [place] [address] * ECHO LMTD W CONTRAST W LMTD SPEC DOPP COLOR DOPP (10/01/2024 12:15 PM EST) EF 33 HEARTLAB SYSTEM Anatomical Region Laterality Modality Cardiac Other 10/01/2024 11:0 6 AM EST Narrative 10/01/2024 1:22 PM EST [address] [place] [address] ? Echocardiogram Report Name: KOREY BERMUDEZ ? Study Date: 10/01/2024 11:06 AMBP: 119/78 mmHg : 1950 ? Height: 168 cm ? Account: [id number] Age: 74 yrs ? Weight: 62 kg Gender: Male ?BSA: 1.7 m2 Ordering Physician: MUSHTAQ ROYAL Referring Physician: MUSHTAQ ROYAL Performed By: OMERO Baez Reason For Study: Chest pain Exam Location: [facility]. Interpretation Summary Left ventricular systolic function is [...] the findings are similar. Procedure Limited - 614[address]. Image enhancement Optison was used for left [...] Note Pablo Tam MD - 10/01/2024 [address] [place] [address] Echocardiogram Report Name: KOREY BERMUDEZ Study Date: 1:06 AMBP: 119/78 mmHg : 1950 Height: 168 cm Account: [id number] Age: 74 yrs Weight: 62 kg Gender: Male BSA: 1.7 m2 Ordering Physician: MUSHTAQ ROYAL Referring Physician: MUSHTAQ ROYAL Performed By: OMERO Baez Reason For Study: Chest pain Exam Location: [facility]. Interpretation Summary Left ventricular systolic function is [...] 07/30/2024, the findings aresimilar. Procedure [place] - [address]. Image enhancement Optison was used for left [...] EKG 12 Lead (10/01/2024 10:05 AM EST) Ventricular rate 62 BPM MUSE SYSTEM Atrial Rate 62 BPM MUSE SYSTEM P-R Interval 158 ms MUSE SYSTEM QRS Duration 96 ms MUSE SYSTEM Q-T Interval 422 ms MUSE SYSTEM QTC Calculated (Bezet) 428 ms MUSE SYSTEM Calculated P Dexter 83 degrees MUSE SYSTEM Calculated R Dexter 88 degrees MUSE SYSTEM Calculated T Dexter 159 degrees MUSE SYSTEM INTERPRETATION Normal sinus rhythm Low voltage QRS 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) T wave abnormality, consider lateral ischemia ACUTE PR / STEMI Abnormal ECG When [...] Mushtaq Royal APRN ECG ORDERABLES MUSE SYSTEM documented in this encounter Visit Diagnoses Diagnosis HFrEF (heart failure with reduced ejection fraction) ST elevation myocardial infarction involving left anterior descending (LAD) coronary artery HFrEF (heart failure with reduced ejection fraction) documented in this encounter Care Teams Scooping Machine Tender Relationship Specialty Start Date End Date Alexia Mtz, FREDRICK [address] [place] [address] PCP - General Family Medicine 07/30/24 documented as of this encounter
--- OUTSIDE RECORDS SUMMARY | 2024-10-03 10:54 | XMS_ITS | Encounter Summary ---
[place] [address] Care Team Providers Care Commercial Housekeeper Name Role Phone Alexia Mtz FREDRICK Primary Care Provider [phone] Encounter Details Date Type Department Care Team (Latest Contact Info) Description 10/01/2024 1:55 PM EST Laboratory Appointment Lab [address] [id number] HFrEF (heart failure with reduced ejection fraction) Social History Tobacco Use Types Packs/Day Years Used Date Smoking Tobacco: Former Cigarettes Smokeless Tobacco: Never Alcohol Use Standard Drinks/Week Comments Not Currently 0 (1 standard drink = 0.6 oz pur e alcohol) [facility] Utilities Answer Date Recorded In the past 12 months has [employer], gas, oil, or water [employer] threatened to shut off services in your [...] in the past 12 m [facility], were you homeless or living in [...] 9:30 AM EST Appointment Non-[place] [address] Mushtaq Murphy, IN HOUSE COUNSEL 10/31/2024 11:00 AM EST Office Visit Cardiology at [address] [address] Mushtaq Murphy, IN HOUSE COUNSEL documented as of this encounter Procedures Procedure Name Priority Date/Time Associated Diagnosis Comments PRO-BRAIN NATRIURETIC PEPTIDE Routine 10/01/2024 12:33 PM EST HFrEF (heart failure with reduced ejection fraction) MAGNESIUM Routine 10/01/2024 12:33 PM EST HFrEF (heart failure with reduced ejection fraction) COMPREHENSIVE METABOLIC PANEL Routine 10/01/2024 12:33 PM EST HFrEF (heart failure with reduced ejection fraction) documented in this encounter Results * Comprehensive metabolic panel Non-fasting (10/01/2024 12:33 PM EST) Glucose 76 65 - 199 mg/dL 10/01/2024 1:18 PM [facility] Comment:Glucose Concentratio n >=200 mg/dL plus symptoms is consistent with Diabetes Mellitus. Blood Urea Nitrogen 17 10 - 20 mg/dL 10/01/2024 1:18 PM [facility] Creatinine 1.06 0.80 - 1.50 mg/dL 10/01/2024 1:18 PM [facility] Sodium 142 135 - 145 mMol/L 10/01/2024 1:18 PM [facility] Potassium 4.1 3.5 - 5.0 mMol/L 10/01/2024 1:18 PM [facility] Chloride 105 98 - 107 mMol/L 10/01/2024 1:18 PM [facility] Carbon Dioxide 25 22 - 31 mMol/L 10/01/2024 1:18 PM [facility] Anion Gap 12 5 - 15 mMol/L 10/01/2024 1:18 PM [facility] Calcium 9.5 8.5 - 10.5 mg/dL 10/01/2024 1:18 PM [facility] Protein, Total 7.2 6.1 - 8.0 g/dL 10/01/2024 1:18 PM [facility] Albumin 4.3 3.2 - 5.2 g/dL 10/01/2024 1:18 PM [facility] Aspartate Aminotransferase 18 <=39 unit/L 10/01/2024 1:18 PM [facility] Alanine Aminotransferase 18 0 - 55 unit/L 10/01/2024 1:18 PM [facility] Alkaline Phosphatase 94 40 - 130 unit/L 10/01/2024 1:18 PM [facility] Bilirubin, Total 0.4 <=1.3 mg/dL 10/01/2024 1:18 PM [facility] Est Glomerular Filtration Rate - Male 75 mL/min/1. 73 m?? 10/01/2024 1:18 PM EST [facility] Comment: This [...] Fasting Status No 10/01/2024 1:18 PM EST [facility] Blood VENOUS BLOOD SPECIMEN / Unknown Venipuncture / Unknown 10/01/2024 12:33 PM EST 10/01/2024 12:38 PM EST Mushtaq Murphy IN HOUSE COUNSEL CHEMISTRY ORDERABLE S [facility] [place] [address] * Magnesium (10/01/2024 12:33 PM EST) Magnesium 0.94 0.69 - 1.07 mMol/L 10/01/2024 1:18 PM EST [facility] Blood VENOUS BLOOD SPECIMEN / Unknown Venipuncture / Unknown 10/01/2024 12:33 PM EST 10/01/2024 12:38 PM EST Mushtaq Murphy IN HOUSE COUNSEL CHEMISTRY ORDERABLE S [facility] [place] [address] * (ABNORMAL) pro-Brain Natriuretic Peptide (10/01/2024 12:33 PM EST) NT-proBNP 2,150(H) <=124 pg/mL 10/01/2024 1:18 PM EST [facility] Blood VENOUS BLOOD SPECIMEN / Unknown Venipuncture / Unknown 10/01/2024 12:33 PM EST 10/01/2024 12:38 PM EST Mushtaq Murphy IN HOUSE COUNSEL CHEMISTRY ORDERABLE S [place] [phone] documented in this encounter Visit Diagnoses Diagnosis HFrEF (heart failure with reduced ejection fraction) documented in this encounter Care Teams Commercial Housekeeper Relationship Specialty Start Date End Date Alexia Mtz APRN [address] [place] [address] PCP - General Family Medicine 07/30/24 documented as of this encounter
--- OUTSIDE RECORDS SUMMARY | 2024-10-03 10:54 | XMS_ITS | Encounter Summary ---
[place] [address] Care Team Providers Care Mobile Ui Designer Name Role Phone Alexia Mtz Shun ALCALA Primary Care Provider [phone] Reason for Referral * Diagnostic Test (Routine) - Closed Specialty Diagnoses / Procedures Referred By Contac t Referred To Contact Cardiology Diagnoses HFrEF (heart failure with reduced ejection fraction) Procedures Echocardiogram Transthoracic Rudolph Royal APRN [facility] [place] [address] Referral ID Status Reason Start Date Expiration Date V isits Requested Visits Authorized [id number] Closed Specialty Service Requested 10/01/2024 10/01/2025 1 1 Reason for Visit * Diagnostic Test (Routine) - Closed Specialty Diagnoses / Procedures Referred By Contac t Referred To Contact Cardiology Diagnoses HFrEF (heart failure with reduced ejection fraction) Procedures Echocardiogram Transthoracic Rudolph Royal APRN [facility] [place] [address] Referral ID Status Reason Start Date Expiration Date V isits Requested Visits Authorized [id number] Closed Specialty Service Requested 10/01/2024 10/01/2025 1 1 Encounter Details Date Type Department Care Team (Latest Contact Info) Description 10/01/2024 11:00 AM EST - 10/01/2024 11:59 PM EST Hospital Encounter Non-[place] [address] Rudolph Royal APRN HFrEF (heart failure with reduced ejection fraction) Discharge Disposition: Home Social History Tobacco Use Types Packs/Day Years Used Date Smoking Tobacco: Former Cigarettes Smokeless Tobacco: Never Alcohol Use Standard Drinks/Week Comments Not Currently 0 (1 standard drink = 0.6 oz pur e alcohol) [facility] Utilities Answer Date Recorded In the past 12 months has th e electric, gas, oil, or water [employer] threatened to shut off services in your [...] in the past 12 m [facility], were you homeless or living in a nursing home (including now)? No 07/30/2024 DH IPV [...] Sig Dispensed Refills Start Date End Date spironolactone (Aldactone) 25 mg tablet Take 1 tablet by mouth daily for 90 days. 30 tablet 2 10/02/2024 12/31/2024 aspirin EC 81 mg EC (DR) tablet [...] by mouth daily. 30 tablet 12 08/05/2024 nitroGLYcerin (Nitrostat) 0.[address] [...] by mouth daily. 12.5 mg daily 04/17/2023 Psyllium Seed-Sucrose (0) Powder Take by mouth. spironolactone (Aldactone) 25 mg tablet Take 0.5 tablets by mouth daily for 90 days. 15 tablet 2 08/05/2024 10/02/2024 documented as of this encounter Plan of Treatment Upcoming Encounters Date Type Department Care Team (Late st Contact Info) Description 10/31/2024 9:30 AM EST Appointment Non-[place] [address] Rudolph Royal APRN 10/31/2024 11:00 AM EST Office Visit Cardiology at [address] [address] Rudolph Royal, FREDRICK documented as of this encounter Procedures Procedure Name Priority Date/Time Associated Diagnosis Comments ECHO LMTD W CONTRAST W LMTD SPEC DOPP COLOR DOPP Routine 10/01/2024 12:15 PM EST HFrEF (heart failure with reduced ejection fraction) documented in this encounter Results * ECHO LMTD W CONTRAST W LMTD SPEC DOPP COLOR DOPP (10/01/2024 12:15 PM EST) EF 33 HEARTLAB SYSTEM Anatomical Region Laterality Modality Cardiac Other 10/01/2024 11:0 6 AM EST Narrative 10/01/2024 1:22 PM EST [address] [place] [address] ? Echocardiogram Report Name: KORYE BERMUDEZ ? Study Date: 10/01/2024 11:06 AMBP: 119/78 mmHg : 1950 ? Height: 168 cm ? Account: [id number] Age: 74 yrs ? Weight: 62 kg Gender: Male ?BSA: 1.7 m2 Ordering Physician: RUDOLPH ROYAL Referring Physician: RUDOLPH ROYAL Performed By: OMERO Baez Reason For Study: Chest pain Exam Location: [facility]. Interpretation Summary Left ventricular systolic function is [...] the findings are similar. Procedure Limited - [address]. Image enhancement Optison was used for left [...] Note [place] Tam MD - 10/01/2024 [address] [place] [id number] Echocardiogram Report Name: KOREY BERMUDEZ Study Date: 1:06 AMBP: 119/78 mmHg : 1950 Height: 168 cm Account: [id number] Age: 74 yrs Weight: 62 kg Gender: Male BSA: 1.7 m2 Ordering Physician: RUDOLPH ROYAL Referring Physician: RUDOLPH ROYAL Performed By: MOERO Baez Reason For Study: Chest pain Exam Location: [facility]. Interpretation Summary Left ventricular systolic function is [...] 07/30/2024, the findings aresimilar. Procedure Limited - 22066. Image enhancement Optison was used for left [...] dec time: 0.18 sec Lat Peak E' [place]: 6.7 cm/sec E/e' (lat): 9.0 Med Peak E' [place]: 3.6 cm/sec E/e' (med): 16.9 E/e' Average: 13.0 TR max [place]: 202.1 cm/sec I WMSI = 2.25 % Normal = 19 SegmentsSize X - Cannot 1 - Normal 2 - 3 - Akinetic 4 - 1-2small Interpret Hypokinetic Dyskinetic 3-5moderate 5 - 6-14large Aneurysmal 15-16diffuse Rudolph Royal APRN ECHO ORDERABLES documented in this encounter Visit Diagnoses Diagnosis HFrEF (heart failure with reduced ejection fraction) documented in this encounter Administered Medications Inactive Administered Medications - up to 3 most recent administrations Medication Order MAR Action Action Date Dose Rate Site perflutren protein-A microsphers (Optison) (0.22 mg/mL) injection 0.5 mL 0.5 mL, Intravenous, ONCE PRN, 1 dose, Starting on Tue10/01/24 at 1216, Until Tue10/01/24 at 1200, for enhancement of sub-optimal echo images, Echo Lab (Intra-Procedure), Routine Given 10/01/2024 12:00 PM EST 0.5 mLs documented in this encounter Care Teams Mobile Ui Designer Relationship Specialty Start Date End Date Alexia Mtz APRN [address] [place] [address] PCP - General Family Medicine 07/30/24 documented as of this encounter
--- OUTSIDE RECORDS SUMMARY | 2024-10-03 10:54 | XMS_ITS | Encounter Summary ---
Author Organization [facility] [place] [address] Care Team Providers Care Splicer Machine Operator Name Role Phone Vale SummitAlexia shell FREDRICK Primary Care Provider [phone] Encounter Details Date Type Department Care Team (Late st Contact Info) Description 10/01/2024 Telephone Cardiology at [address] [phone] Chloe Ramos Social History Tobacco Use Types Packs/Day Years [...] time in the past 12 m [facility], were you homeless or living [...] encounter Miscellaneous Notes * Telephone Encounter - Chloe Ramos - 10/01/2024 11:14 AM EST Request for records faxed to [facility] at [phone]. documented in this encounter Plan of Treatment Upcoming Encounters Date Type Department Care Team (Late st Contact Info) Description 10/31/2024 9:30 AM EST Appointment Non-Invasive [place] [address] Mushtaq Murphy APRN 10/31/2024 11:00 AM EST Office Visit Cardiology at [address] [phone] Mushtaq Murphy APRN documented as of this encounter Visit Diagnoses Not on filedocumented in this encounter Care Teams Splicer Machine Operator Relationship Specialty Start Date End Date Alexia Mtz APRN [address] [place] [address] PCP - General Family Medicine 11/18/24 documented as of this encounter
--- OUTSIDE RECORDS SUMMARY | 2024-10-03 10:55 | XMS_ITS | Encounter Summary ---
[place] [address] Care Team Providers Care Auto Adjudication Specialist Name Role Phone Alexia Mtz FREDRICK Primary Care Provider [phone] Reason for Visit * Auth/Cert (Routine) Specialty Diagnoses / Procedures Referred By Theodore muro Referred To Contact Diagnoses STEMI (ST elevation myocardial infarction) STEMI Procedures ER SUI Vahe Marvin MD [facility] [place] [address] [facility] Referral ID Status Reason Start Date Expiration Date Visits Re quested Visits Authorized [id number] 1 1 Encounter Details Date Type Department Care Team (Late st Contact Info) Description 07/31/2024 4:30 PM EST - 07/31/2024 5:30 PM EST [place] [address] Maldonado Luis MD [facility] [place] [address] CARDIAC CATHETERIZATION Social History Tobacco Use Types Packs/Day Years Used Date Smoking Tobacco: Former Cigarettes Smokeless Tobacco: Never Alcohol Use Standard Drinks/Week Comments Not Currently 0 (1 standard drink = 0.6 oz pur e alcohol) [facility] Utilities Answer Date Recorded In the past 12 months has [employer], gas, oil, or water company threatened [...] Korey Montoya Patient Age: 74 y.o. Language: Fijian Race: White Ethnicity: Not nor Admit date: [...] please contact your inpatient physician through the [facility] Stacker Attendant . Issues afterhours and on weekends will [...] EKG. Patient transferred via air ambulance to [facility] on 07/29 for LHC and [...] EKG. Was transferred via air ambulance to [facility] for further management and LHC [...] the next year. Access was via right CARD BRUSHER and this sitewas clean, dry and intact [...] for Chest pain. Replaces: nitroGLYcerin 400 mcg/spray [place], Non-Aerosol 0.4 mg Quantity: 90 tablet Refills: [...] Refills: 0 STOPPED Medications nitroGLYcerin 400 mcg/spray [place], Non-Aerosol Commonly known as: NITROLINGUAL Replaced by: [...] of one year. After this time, your assurance senior manager will determine if you need to [...] away. Stay on the phone. The emergency clarifier operator helper will tell you what to do. Nitroglycerin [...] appointments: During 8am-5pm Tuesday through Tuesday call [phone] to speak with a nurse in the cardiology clinic All other times call [phone] and ask to speak to the ticket chopper assembler consulting project director. Follow up Appointments: PCP Alexia Mtz, CIVIL ENGINEERING PROJECT MANAGER [phone]. Please call to establish a follow up appointment within 1-2 weeks of discharge. Cardiology. Referral to heart failure has been sent. General Instructions None Future Appointments and Orders Future Orders Complete By Expires Referral to Cardiac Rehab [ACB161 Custom] As directed Process Instructions: If no progress note charted, please enter Clinical details in comments. Scheduling Instructions: Questions: My question or request is: STEMI, PCI- cardiac rehab at [facility] Referral to Cardiology [REF12 Custom] As directed [...] of one year. After this time, your assurance senior manager will determine if you need to [...] away. Stay on the phone. The emergency clarifier operator helper will tell you what to do. Nitroglycerin [...] appointments: During 8am-5pm Tuesday through Tuesday call [phone] to speak with a nurse in the cardiology clinic All other times call [phone] and ask to speak to the ticket chopper assembler consulting project director. Follow up Appointments: PCP Alexia Mtz, CIVIL ENGINEERING PROJECT MANAGER [phone]. Please call to establish a follow up [...] 08/05/2024 10/02/2024 documented as of this encounter Progress Notes * Tonya Watson, RN - 08/04/2024 3:30 PM ESTSummary: Discharge [...] EKG. Patient transferred via air ambulance to [facility] on 07/29 for LHC and LOW to LAD for 100% occlusion Social History: Pt lives with his in a 1 level home with 2 NAOMI. Pt was indep BRICK MASON. 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 He [...] Total time: 35 (tef) minutes Time IN/OUT: 5625-7317 ZAIDA DUBOSE PT Pager: [phone] Physical Therapy Inpatient Rehabilitation Department * Yrn Ward MD - 08/03/2024 10:38 AM EST CV HOSPITALIST 2 - [facility] DAILY PROGRESS NOTE Page [phone] to reach a provider 04/04 Admit Date: [...] Compared to the overnight study by the consulting project director fellow the impella position is stable. 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 [facility] 07/29/24 Conclusions: * One vessel coronary artery disease (LAD) * Mild pulmonary hypertension * Elevated pulmonary capillary wedge pressure * Successful stent insertion of the proximal LAD lesion * See Dual Antiplatelet (DAPT) Recommendations above * Successful impella placement for cardiogenic shock. Telemetry: I have personally reviewed and interpreted the telemetry from the last 24 hours. [facility] Assessment: ASSESSMENT: Korey Montoya is a 74 y.o. male w/ PMH of hypertension, HLD, and BPH who presents for chief concern of chest pain after being found to have ST elevations on EKG. Patient transferred via air ambulance to [facility] on 07/29 for C and [...] to be determined OT: PCP Alexia Mtz, CIVIL ENGINEERING PROJECT MANAGER [phone] * Zaida Dubose, PT - 08/02/2024 2:08 PM EST Physical Therapy Evaluation Patient profile: Korey Montoya is a 74 y.o. male w/ PMH of hypertension, HLD, and BPH who presents for chief concern of chest pain after being found to have ST elevations on EKG. Patient transferred via air ambulance to [facility] on 07/29 for LHC and LOW to LAD for 100% occlusion Social History: Pt lives with his in a 1 level home with 2 NAOMI. Pt was indep BRICK MASON. 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 He [...] Total time: 37 (eval) minutes Time IN/OUT: [id number] ZAIDA DUBOSE, PT Pager: [phone] Physical Therapy Inpatient Rehabilitation Department * Gagan [...] EKG. Patient transferred via air ambulance to [facility] on 07/29 for LHC and LOW to LAD for 100% occlusion. TTE showed apical akinesis and inferior hypokinesis with EF 20%. RHC showed elevated filling pressures. Impella placed and P-level 6 at time of transfer to [facility]. CI initially 1.97, improved to 2.2 After impella. Received about 3 L of fluid during procedural course. Patient initially required norepinephrine 30, epinephrine 10, and vasopressin 0.04 for hemodynamic support, which was weaned upon arrival to [facility] to norepinephrine 20and levo 0.04 N - [...] PCP: Alexia Mtz APRN PCP phone number: [phone] Date of Admission: 07/29/2024 ( Hospital Day 4 days ) Attending:Bridgette Stauffer MD ID: Korey Montoya is a 74 y.o. male w/ PMH of hypertension, HLD, and BPH on Hospital Day4 for chief concern of chest pain after being found to have ST elevations on EKG. Patient transferred via air ambulance to [facility] on 07/29 for LHC and [...] 07/29/24 1621 PHART 7.48* 7.44 7.38 7.37 QPR7ADW 29* 29* 34* 36 PO2ART 71* 109* 141* 71* MBC2AOK 20.6 19.4* 19.5* 20.4 VBG (Venous Blood Gas) Recent Labs 07/29/24 1401 PHVEN 7.30* PO2VEN 39 ZYN4PFC 20.1* Mixed Venous Sat No results for input(s): W9TVMC7 in the last 168 hours. Objective: Vitals [...] 81.2* 82.0* 82.1* 82.4* 83.4 Recent Labs 08/02/2441908/01/24203808/01/24 0820 08/01/2441707/31/248 07/30/24200207/30/24 1508 07/30/2421007/29/24201007/29/24 1403 NA 139 -- -- [...] 07/29/24 1621 PHART 7.48* 7.44 7.38 7.37 TIP1SIX 29* 29* 34* 36 PO2ART 71* 109* 141* 71* ZAT6KRS 20.6 19.4* 19.5* 20.4 VBG (Venous Blood Gas) Recent Labs 07/29/24 1401 PHVEN 7.30* PO2VEN 39 ZGP3CTA 20.1* Mixed Venous Sat No results for input(s): Z8CPNP8 in the last 168 hours. Microbiology: Microbiology Results (Last 30 days) Procedure Component Value Units Date/Time Blood culture [[id number]] Collected: 07/29/241607 Lab Status: Preliminary result Specimen: Blood, Venous Updated: 08/01/241700 Blood Culture No growth at 72 hours Blood culture [[id number]] Collected: 07/29/241607 Lab Status: Preliminary result Specimen: Blood, Venous Updated: 08/01/241700 Blood Culture No growth at 72 hours Imaging: Results for orders placed or performed during the hospital encounter of 07/29/24 XR Chest One View (Exam End: 07/29/2024 2:30 PM) Result Value WORKSTATION ID [id number] Impression 1. No pulmonary edema. 2. No pleural effusion. 3. No pneumothorax. Thank you for letting us participate in the care of this patient. If you are a health care provider and have any questions regarding this report, please contact the number below. For patients who have questions please contact the health nanny caregiver that requested your imaging first. Electronically signed by: Chris Candelaria MD, [facility] ([phone]), at 07/29/2024 3:21 PM TTE ( 07/30/24) [...] Compared to the overnight study by the consulting project director fellow the impella position is stable. [...] EKG. Patient transferred via air ambulance to [facility] on 07/29 for LHC and [...] negative - GDMT: Start losartan 25mg Pulmonary #EDIOSN #dry cough, likely 2/2 atelectasis - continue [...] Susannah Ornelas MD Internal Medicine, PGY-1 Cardiology, [facility] 08/02/24 12:45 PM CARDIOLOGY STAFF NOTE I [...] today). Transfer to floor. Krystal Parker MD, [facility], [facility] Staff Predator Control Trapper emergency medical technician/driver * Gagan Catherine MD - 08/01/2024 11:12 [...] EKG. Patient transferred via air ambulance to [facility] on 07/29 for LHC and LOW to LAD for 100% occlusion. TTE showed apical akinesis and inferior hypokinesis with EF 20%. RHC showed elevated filling pressures. Impella placed and P-level 6 at time of transfer to [facility]. CI initially 1.97, improved to 2.2 After impella. Received about 3 L of fluid during procedural course. Patient initially required norepinephrine 30, epinephrine 10, and vasopressin 0.04 for hemodynamic support, which was weaned upon arrival to [facility] to norepinephrine 20and levo 0.04 N - [...] PCP: Alexia Mtz APRN PCP phone number: [phone] Date of Admission: 07/29/2024 ( Hospital Day 3 days ) Attending:Krystal Parker MD ID: Korey Montoya is a 74 y.o. male w/ PMH of hypertension, HLD, and BPH on Hospital Day3 for chief concern of chest pain after being found to have ST elevations on EKG. Patient transferred via air ambulance to [facility] on 07/29 for LHC and [...] 07/29/24 1621 PHART 7.48* 7.44 7.38 7.37 ABZ7ELZ 29* 29* 34* 36 PO2ART 71* 109* 141* 71* XWZ6LVG 20.6 19.4* 19.5* 20.4 VBG (Venous Blood Gas) Recent Labs 07/29/24 1401 PHVEN 7.30* PO2VEN 39 OQM8BDZ 20.1* Mixed Venous Sat No results for input(s): Q4PRKN1 in the last 168 hours. PA Catheter [...] 07/29/24 1621 PHART 7.48* 7.44 7.38 7.37 IVS1WMX 29* 29* 34* 36 PO2ART 71* 109* 141* 71* EXN9JUD 20.6 19.4* 19.5* 20.4 VBG (Venous Blood Gas) Recent Labs 07/29/24 1401 PHVEN 7.30* PO2VEN 39 PSM4CIB 20.1* Mixed Venous Sat No results for input(s): K7HIFY8 in the last 168 hours. Microbiology: Microbiology Results (Last 30 days) Procedure Component Value Units Date/Time Blood culture [[id number]] Collected: 07/29/24 1608 Lab Status: Preliminary result Specimen: Blood, Venous Updated: 07/31/24 170 Blood Culture No growth at 48 hours Blood culture [[id number]] Collected: 07/29/24 1608 Lab Status: Preliminary result Specimen: Blood, Venous Updated: 07/31/24 1701 Blood Culture No growth at 48 hours Imaging: Results for orders placed or performed during the hospital encounter of 07/29/24 XR Chest One View (Exam End: 07/29/2024 2:30 PM) Result Value WORKSTATION ID [id number] Impression 1. No pulmonary edema. 2. No pleural effusion. 3. No pneumothorax. Thank you for letting us participate in the care of this patient. If you are a health care provider and have any questions regarding this report, please contact the number below. For patients who have questions please contact the health nanny caregiver that requested your imaging first. Electronically signed by: Chris Candelaria MD, [facility] ([phone]), at 07/29/2024 3:21 PM TTE ( 07/30/24) [...] Compared to the overnight study by the consulting project director fellow the impella position is stable. [...] EKG. Patient transferred via air ambulance to [facility] on 07/29 for LHC and [...] Susannah Ornelas MD Internal Medicine, PGY-1 Cardiology, [facility] 08/01/24 7:13 AM CARDIOLOGY STAFF NOTE I [...] with him; questions answered. Krystal Parker MD, [facility], [facility] Staff Predator Control Trapper emergency medical technician/driver * Krystal Parker MD - 07/31/2024 1:06 [...] EKG. Patient transferred via air ambulance to [facility] on 07/29 for LHC and LOW to LAD for 100% occlusion. TTE showed apical akinesis and inferior hypokinesis with EF 20%. RHC showed elevated filling pressures. Impella placed and P-level 6 at time of transfer to [facility]. CI initially 1.97, improved to 2.2 After impella. Received about 3 L of fluid during procedural course. Patient initially required norepinephrine 30, epinephrine 10, and vasopressin 0.04 for hemodynamic support, which was weaned upon arrival to [facility] to norepinephrine 20and levo 0.04 N - [...] PCP: Alexia Mtz APRN PCP phone number: [phone] Date of Admission: 07/29/2024 ( Hospital Day 2 days ) Attending:Krystal Parker MD ID: Korey Montoya is a 74 y.o. male w/ PMH of hypertension, HLD, and BPH on Hospital Day2 for chief concern of chest pain after being found to have ST elevations on EKG. Patient transferred via air ambulance to [facility] on 07/29 for LHC and [...] 0057 07/29/24 1621 PHART 7.44 7.38 7.37 ATZ6NXW 29* 34* 36 PO2ART 109* 141* 71* SMP4XOL 19.4* 19.5* 20.4 VBG (Venous Blood Gas) Recent Labs 07/29/24 1401 PHVEN 7.30* PO2VEN 39 XCC4QYN 20.1* Mixed Venous Sat No results for input(s): U0WVIY7 in the last 168 hours. PA Catheter [...] 0057 07/29/24 1621 PHART 7.44 7.38 7.37 BCH8OAO 29* 34* 36 PO2ART 109* 141* 71* TAK2WIU 19.4* 19.5* 20.4 VBG (Venous Blood Gas) Recent Labs 07/29/24 1401 PHVEN 7.30* PO2VEN 39 ZCB2FMK 20.1* Mixed Venous Sat No results for input(s): Z2CDHJ9 in the last 168 hours. Microbiology: Microbiology Results (Last 30 days) Procedure Component Value Units Date/Time Blood culture [[id number]] Collected: 07/29/241607 Lab Status: Preliminary result Specimen: Blood, Venous Updated: 07/30/241700 Blood Culture No Growth at 18-24 hrs. Blood culture [[id number]] Collected: 07/29/241607 Lab Status: Preliminary result Specimen: Blood, Venous Updated: 07/30/241700 Blood Culture No Growth at 18-24 hrs. Imaging: Results for orders placed or performed during the hospital encounter of 07/29/24 XR Chest One View (Exam End: 07/29/2024 2:30 PM) Result Value WORKSTATION ID [id number] Impression 1. No pulmonary edema. 2. No pleural effusion. 3. No pneumothorax. Thank you for letting us participate in the care of this patient. If you are a health care provider and have any questions regarding this report, please contact the number below. For patients who have questions please contact the health nanny caregiver that requested your imaging first. Electronically signed by: Chris Candelaria MD, [facility] ([phone]), at 07/29/2024 3:21 PM TTE ( 07/30/24) [...] Compared to the overnight study by the consulting project director fellow the impella position is stable. [...] EKG. Patient transferred via air ambulance to [facility] on 07/29 for LHC and [...] work to optimize volume status while continuing phuhqty-rbcucn-enzmvnmzdk therapies at this time. Obtain comprehensive TTE. [...] EKG. Patient transferred via air ambulance to [facility] on 07/29 for LHC and LOW to LAD for 100% occlusion. TTE showed apical akinesis and inferior hypokinesis with EF 20%. RHC showed elevated filling pressures. Impella placed and P-level 6 at time of transfer to [facility]. CI initially 1.97, improved to 2.2 After impella. Received about 3 L of fluid during procedural course. Patient initially required norepinephrine 30, epinephrine 10, and vasopressin 0.04 for hemodynamic support, which was weaned upon arrival to [facility] to norepinephrine 20and levo 0.04 N - [...] PCP: Yoel Artis APRN PCP phone number: [phone] Date of Admission: 07/29/2024 ( Hospital Day 1 day ) Attending:Jay Silverio MD ID: Korey Montoya is a 74 y.o. male w/ PMH of hypertension, HLD, and BPH on Hospital Day1 for chief concern of chest pain after being found to have ST elevations on EKG. Patient transferred via air ambulance to [facility] on 07/29 for LHC and LOW to LAD for 100% occlusion. 24 Hour Events/Subjective: Yesterday: - Admitted to the [facility] - After his LHC, he demonstrated significant [...] 0057 07/29/24 1621 PHART 7.44 7.38 7.37 PPK2YHL 29* 34* 36 PO2ART 109* 141* 71* RKP3UWL 19.4* 19.5* 20.4 VBG (Venous Blood Gas) Recent Labs 07/29/24 1401 PHVEN 7.30* PO2VEN 39 HEK2PNJ 20.1* Lactate ( Last 12 hours) 1.3 >> 1.2 Mixed Venous Sat No results for input(s): V2RTMB7 in the last 168 hours. PA Catheter [...] 07/30/24 06 Dressing Status Clean;Dry;Intact 07/30/24599 Dressing Intervention New [...] 0057 07/29/24 1621 PHART 7.44 7.38 7.37 ZJT8SFG 29* 34* 36 PO2ART 109* 141* 71* VKH9ZAT 19.4* 19.5* 20.4 VBG (Venous Blood Gas) Recent Labs 07/29/24 1401 PHVEN 7.30* PO2VEN 39 DNG8IWC 20.1* Mixed Venous Sat No results for input(s): L6OZLA1 in the last 168 hours. Microbiology: Microbiology Results (Last 30 days) Procedure Component Value Units Date/Time Blood culture [[id number]] Collected: 07/29/24 1608 Lab Status: In process Specimen: Blood, Venous Updated: 07/29/24 162 Blood culture [[id number]] Collected: 07/29/24 1608 Lab Status: In process Specimen: Blood, Venous Updated: 07/29/24 1615 Imaging: Results for orders placed or performed during the hospital encounter of 07/29/24 XR Chest One View (Exam End: 07/29/2024 2:30 PM) Result Value WORKSTATION ID [id number] Impression 1. No pulmonary edema. 2. No pleural effusion. 3. No pneumothorax. Thank you for letting us participate in the care of this patient. If you are a health care provider and have any questions regarding this report, please contact the number below. For patients who have questions please contact the health nanny caregiver that requested your imaging first. Electronically signed by: Chris Candelaria MD, [facility] ([phone]), at 07/29/2024 3:21 PM Medications Scheduled Meds: [...] EKG. Patient transferred via air ambulance to [facility] on 07/29 for LHC and [...] EKG. Patient transferred via air ambulance to [facility] on 07/29 for LHC and [...] EKG. Was transferred via air ambulance to [facility] for further management and [facility] demo nstrated 100% occlusion. No significant RCA, LMCA, or LCX disease. LOW placed in LAD with some residual distal disease meriting placement of overlapping distal stent. TTE showed apical akinesis and inferior hypokinesis with EF 20%. RHC showed elevated filling pressures. Impella placed and P-level 6 at time of transfer to [facility]. CI initially 1.97, improved to 2.2 After impella. Received about 3 L of fluid during procedural course. Patient initially required norepinephrine, epinephrine, and vasopressin for hemodynamic support, which was weaned upon arrival to [facility] to norepinephrine 20 and levo 0.04 (epinephrine [...] 4.57) performed by Brandan Mcgovern MD [facility] ENDOSCOPY Significant Family History: Family History Problem [...] file Intimate Partner Violence: At Risk (07/30/2024) DH IPV Inpatient Questions Prevent Contact with Others: [...] mouth. Past Week nitroGLYcerin (NITROLINGUAL) 400 mcg/spray [place], Non-Aerosol 1 spray to anus for proctalgia [...] 3.5 guiding catheter and a 3.5 Fr [facility] [place] [facility] 20 Mhz using Manual pullback. Imaging [...] atmospheres. A premounted 3.00 x 22 mm [place] Mcnairy (LOW) was deployed with a maximum inflation [...] atmospheres. A premounted 3.00 x 08 mm [place] Mcnairy (LOW) was deployed with a maximum inflation [...] a limited study performed by a fellow consulting project director to evaluate for cardiogenic shock with [...] Compared to the overnight study by the consulting project director fellow the impella position is stable. [...] EKG. Patient transferred via air ambulance to [facility] on 07/29 for LHC and [...] PCP: Yoel Artis APRN PCP phone number: [phone] Date of Admission: 07/29/2024 ( Hospital Day 0 days ) Attending:Jay Silverio MD ID: Korey Montoya is a 74 y.o. male w/ PMH of hypertension, HLD, and BPH who presents for chief concern of chest pain after being found to have ST elevations on EKG. Patient transferred via air ambulance to [facility] on 07/29 for LHC and LOW to LAD for 100% occlusion. HPI: Korey Montoya is a 74 y.o. male w/ PMH of hypertension, HLD, and BPH who presents for chief concern of chest pain after being found to have ST elevations on EKG. Patient transferred via air ambulance to [facility] on 07/29 for LHC and [...] EKG. Was transferred via air ambulance to [facility] for further management and LHC [...] 4.57) performed by Brandan Mcgovern MD [facility] ENDOSCOPY Family History Family History Problem Relation [...] Blood Gas) No results for input(s): PHART, FHE7JCJ, PO2ART, DPJ6ZSA, LACTATEVEN, HJZ7CHM, PFRATIOART2 in the last 168 hours. VBG (Venous Blood Gas) Recent Labs 07/29/24 1401 PHVEN 7.30* PO2VEN 39 YDM1ARV 20.1* Mixed Venous Sat No results for input(s): Q5PGKH4 in the last 168 hours. PA Catheter [...] Blood Gas) No results for input(s): PHART, DYT3WDM, PO2ART, PTJ3JOX, LACTATEVEN, DIB7FCC, PFRATIOART2 in the last 168 hours. VBG (Venous Blood Gas) Recent Labs 07/29/24 1401 PHVEN 7.30* PO2VEN 39 SEP8MKY 20.1* Mixed Venous Sat No results for input(s): X5CUHI1 in the last 168 hours. Microbiology: Microbiology [...] EKG. Patient transferred via air ambulance to [facility] on 07/29 for [facility]. Found to have 100% occlusion of LAD for which he underwent LOW to LAD.Otherwise no other significant vessel disease. Fahad is currently hemodynamically tenuous but improving upon admission to [facility], requiring hemodynamic support with norepinephrine and vasopressin at time of admission along with mechanical support with Impella device. Reassuringly, he demonstrates decreasing pressor requirements since admission to [facility], with epinephrine completely weaned. He does demonstrate [...] Bernardo Amos MD Internal Medicine, PGY-3 Cardiology, [facility] 07/29/24 3:14 PM Cardiology Attending Note I [...] of Cardiovascular Medicine [facility] Labor Operatorcellar hand [facility] [employer] [facility] This patient meets or has met [...] to the planned procedure. Hand Hygiene: The greenhouse staff did perform hand hygiene prior to arterial [...] ease. Good wave form. Ivan Hernandez MD Cloth Mercerizer Back Tender Associated attestation - Rolando Yeh MD [...] Fahad was quite active prior to his AL. 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 Given parameters for home exercise. He follows a heart healthy diet and is not overweight. His lipids are wnl. Participation in an outpatient cardiac rehabilitation program at [facility] was discussed. Patient agrees to a referral [...] Patient is insured through: Primary Insurance: [facility] MANAGED MEDICARE Payor: [facility] MEDICARE / Plan: [employer] RPPO MANAGED MEDICARE [...] of Discharge: 08/04/2024 Gaby Wong RN, CM [phone] * Initial Assessments - Char Meza, OT - 08/03/2024 10:00 AM EST Occupational Therapy Evaluation Patient profile: Korey Montoya is a 74 y.o. male admitted on 07/29/2024 w/ PMH of hypertension, HLD, and BPH who presents for chief concern of chest pain after being found to have ST elevations onEKG. Patient transferred via air ambulance to [facility] on 07/29 for LHC and LOW to LAD for 100% occlusion. Past Medical History: Diagnosis Date ADHD HLD (hyperlipidemia) HTN (hypertension) Tremor Past Surgical History: Procedure Laterality Date HAND SURGERY PRO COLONOSCOPY, REMV LESN, SNARE N/A 08/30/2023 COLONOSCOPY, POLYPECTOMY, REMOVAL LESION BY SNARE (WRVU 4.57) performed by Brandan Mcgovern MD [facility] ENDOSCOPY Social History: Patient lives with his . Home Setup: 2 NAOMI to a 1 level home. DME: none Baseline ADL/Mobility: Independent with ADLs and IADLs. Enjoys walking. able assist as needed. Precautions/Special Considerations: Full code. Risk for falls. Subjective: I have access to an [employer] weight gym. (Educated to wait for MD [...] evaluation only Total Minutes, Occupational Therapy: 14 ([id number] (evaluation)) 2017 OT Evaluation Code Rationale: Diagnosis [...] and measurable assessment of functional outcome. Pager: [phone] Char Meza OT 08/03/2024 Occupational Therapy Rehabilitation [...] (Interventions Implemented as Appropriate) Flowsheets (Taken 08/01/2024 0874) Outcome Summary: A+O, no pain. NSR. MAP [...] Procedure Note: Patient Name: Korey Montoya : [id number] MR#: [id number] Case Date: 07/31/2024 Stacker Attendant: Surgeons and Role: * Maldonado Luis MD - Primary * Quinten Charles PA - Physician Die Hardener Preoperative diagnosis: shock, impella Postoperative diagnosis: * same * Procedure(s) performed: Impella removal form right CARD BRUSHER Access: Right CARD BRUSHER A time-out was conducted prior to the [...] receiving care in [place] must abide by [place] law. The hierarchy [...] The agent with financial power of attorney law clerk or a conservator appointed in accordance with [...] In the past 12 months has the [facility] gas, oil, or water [employer] ([employer]) threatened to shut off services in your [...] it) Home Address confirmed as: Mailing Address: [facility] [address], [place] [address] Physical Address: [address] [place], [place] Social & Family Supports: All names [...] points: Addiction likely Health/Prescription Coverage: Primary Insurance: [employer] MANAGED MEDICARE Payor: [employer] MEDICARE / [facility]TE / Product Type: *No Product type* / Secondary Insurance: N/A ; Prescription Coverage: Yes Preferred Pharmacy: [address] [address] [place] Status: Patient is a : No Primary Care Provider confirmed: Alexia Mtz, CIVIL ENGINEERING PROJECT MANAGER [phone] Patient/Caregiver Goals of Treatment: return home Potential [...] 07/29/2024 6:25 PM EST Pt arrived from labor relations director @ 1400. CXR and EKG completed. Impella [...] Procedure Note: Patient Name: Korey Montoya : [id number] MR#: [id number] Case Date: 07/29/2024 Stacker Attendant: Surgeons and Role: * Vahe Marvin MD - Primary * Susannah Watts PA - Physician Die Hardener Preoperative diagnosis: STEMI Postoperative diagnosis: * STEMI, LAD Artery * * Cardiogenic Shock * Procedure(s) performed: [facility] Coronary angiogram Stent insertion coronary IVUS coronary Venous line insert C Dunbar Colette Catheter Vascular closure device Ventricular assist [...] x 22 mm to 14 deonna JEISON Mcnairy with LIZ 3 flow. Residual distal disease at distal stent, overlapping distal stent was inserted with 3.0 x 8 mm JEISON Mcnairy. Systolic's in the 80's sustained. Patient re [...] 9:30 AM EST Appointment Non-Invasive [place] [address] Mushtaq Murphy APRN 10/31/2024 11:00 AM EST Office Visit Cardiology at [address] [address] Mushtaq Murphy, FREDRICK Scheduled Orders Name Type [...] - 0.10 x10(3)/mc L 08/04/2024 6:39 AM EST [facility] Immature Gran % 0.3 % 6:39 AM [facility] Immature Gran Absolute <0.04 0.00 - 0.04 x10(3)/mc L 08/04/2024 6:39 AM [facility] Blood VENOUS BLOOD SPECIMEN / Unknown Venipuncture / Unknown 08/04/2024 6:08 AM EST 08/04/2024 6:19 AM EST Bridgette Stauffer MD HEMATOLOGY ORDERABLE S Performing Organization Address City/[facility]/ZIP Co de Phone Number [facility] [place] [address] * Magnesium (08/04/2024 6:08 AM EST) Magnesium 0.85 0.69 - 1.07 mMol/L 08/04/2024 7:07 AM [facility] Blood VENOUS BLOOD SPECIMEN / Unknown Venipuncture / Unknown 08/04/2024 6:08 AM EST 08/04/2024 6:19 AM EST Bridgette Stauffer MD CHEMISTRY ORDERABLES [facility] [place] [address] * Basic Metabolic Panel (08/04/2024 6:08 AM EST) Glucose 93 65 - 199 mg/dL 08/04/2024 7:07 AM [facility] Comment:Glucose Concentratio n >=200 mg/dL plus symptoms is consistent with Diabetes Mellitus. Blood Urea Nitrogen 14 10 - 20 mg/dL 08/04/2024 7:07 AM [facility] Creatinine 1.07 0.80 - 1.50 mg/dL 08/04/2024 7:07 AM [facility] Sodium 138 135 [...] CHEMISTRY ORDERABLES [facility] [place] [address] * (ABNORMAL) CBC (with Diff) (08/03/2024 5:16 AM EST) White Blood Cell 7.85 4.00 - 9.50 x10(3)/mc L 08/03/2024 5:29 AM EST [facility] Red Blood Cell 4.43(L) 4.58 [...] ORDERABLE S [facility] [place] [address] * Magnesium (08/03/2024 5:16 AM EST) Magnesium 0.89 0.69 - 1.07 mMol/L 08/03/2024 5:56 AM [facility] Blood VENOUS BLOOD SPECIMEN / Unknown Venipuncture / Unknown 08/03/2024 5:16 AM EST 08/03/2024 5:23 AM EST Bridgette Stauffer MD CHEMISTRY ORDERABLES [facility] [place] [address] * (ABNORMAL) Basic Metabolic Panel (08/03/2024 5:16 AM EST) Glucose 98 65 - 199 mg/dL 08/03/2024 5:56 AM [facility] Comment:Glucose Concentratio n >=200 mg/dL plus symptoms is consistent with Diabetes Mellitus. Blood Urea Nitrogen 16 10 - 20 mg/dL 08/03/2024 5:56 AM [facility] Creatinine 0.85 0.80 - 1.50 mg/dL 08/03/2024 5:56 AM [facility] Sodium 137 [...] ORDERABLES Performing Organization Address [facility]/ZIP Co de Phone Number [facility] [place] [address] * POC, GLUCOSE (08/02/2024 7:47 AM EST) [facility] Glucometer, POC 89 65 - 199 mg/dL 08/02/2024 7:47 AM EST [facility] Comment:Supplemental ranges: <140 mg/dL before meals <180 mg/dL all other times of the day. Blood CAPILLARY BLOOD / Unknown 08/02/2024 7:47 AM EST 08/02/2024 7:47 AM EST Krystal Parker MD POINT OF CARE TEST O RDERABLES Performing Organization Address [facility] Co de Phone Number [facility] [place] [address] * (ABNORMAL) CBC (with Diff) (08/02/2024 4:20 [...] 40.5 - 48.5 % 08/02/2024 4:50 AM EST [facility] Mean Cell Volume 81.2(L) 82.9 [...] - 0.90 x10(3)/mc L 08/02/2024 4:50 AM EST [facility] Eos % 1.4 % 08/02/2024 4:50 AM EST [facility] Eos Absolute 0.12 0.00 - 0.40 x10(3)/mc L 08/02/2024 4:50 AM EST [facility] Basophil % 0.4 % 08/02/2024 [...] ORDERABLE S [facility] [place] [address] * Magnesium (08/02/2024 4:20 AM EST) Magnesium 0.79 0.69 - 1.07 mMol/L 08/02/2024 5:06 AM EST [facility] Blood VENOUS BLOOD SPECIMEN / Unknown Venipuncture / Unknown 08/02/2024 4:20 AM EST 08/02/2024 4:37 AM EST Bridgette Stauffer MD CHEMISTRY ORDERABLES [facility] [place] [address] * (ABNORMAL) Basic Metabolic Panel (08/02/2024 4:20 [...] AM EST 08/02/2024 4:37 AM EST Bridgette Eh MD CHEMISTRY ORDERABLES Performing Organization Address [facility] Co de Phone Number [facility] [place] [address] * Potassium (08/01/2024 8:39 PM EST) Potassium 4.0 3.5 - 5.0 mMol/L 08/01/2024 9:21 PM EST [facility] Blood VENOUS BLOOD SPECIMEN / Unknown Venipuncture / Unknown 08/01/2024 8:39 PM EST 08/01/2024 8:51 PM EST Jay Silverio MD CHEMISTRY ORDERABL ES Performing Organization Address [facility] de [facility] Number [facility] [place] [address] * POC, GLUCOSE (08/01/2024 8:35 PM EST) [...] RDERABLES Performing Organization Address [facility] Co de Phone Number [facility] [place] [address] * POC, GLUCOSE (08/01/2024 4:55 PM EST) Glucometer, POC 99 65 - 199 mg/dL 08/01/2024 4:56 PM EST [facility] Comment:Supplemental ranges: <140 mg/dL before meals <180 mg/dL all other times of the day. Blood CAPILLARY BLOOD / Unknown 08/01/2024 4:55 PM EST 08/01/2024 4:56 PM EST Krystal Parker MD POINT OF CARE TEST O RDERABLES Performing Organization Address City/[facility]/ZIP Co de Phone Number [facility] [place] [address] * POC, GLUCOSE (08/01/2024 12:42 PM EST) Glucometer, POC 130 65 - 199 mg/dL 08/01/2024 12:43 PM EST [facility] Comment:Supplemental ranges: <140 mg/dL before meals <180 mg/dL all other times of the day. Blood CAPILLARY BLOOD / Unknown 08/01/2024 12:42 PM EST 08/01/2024 12:43 PM EST Krystal Parker MD POINT OF CARE TEST O JOSH Performing Organization Address [facility] Co de Phone Number [facility] [place] [address] * (ABNORMAL) Cooximetry, POC (08/01/2024 10:45 AM EST) pO2, Coox 32 mmHg 08/01/2024 10:48 AM [facility] Hemoglobin, Coox 12.9(L) 13.7 - 16.5 g/dL 08/01/2024 10:48 AM [facility] Oxyhemoglobin, Coox 66.7 % 08/01/2024 10:48 AM [facility] Carboxyhemoglo bin, Coox 1.1 % 08/01/2024 10:48 AM [facility] Comment: Nonsmokers: 0.5-1.5% COHB ?? Smokers: Variable ??but usually less than 10% ?? Toxic: 20-30% COHB ?? Lethal: Greater than 60% COHB Methemoglobin, Coox 0.3 <=1.5 % 08/01/2024 10:48 AM [facility] Blood (Mixed Venous) 08/01/2024 10:45 AM EST 08/01/2024 10:48 AM EST Krystal Parker MD POINT OF CARE TEST O RDERABLES Performing Organization Address [facility] Co de Phone Number [facility] [place] [address] * Potassium (08/01/2024 8:20 AM EST) Potassium 4.0 3.5 - 5.0 mMol/L 08/01/2024 10:17 AM EST [facility] Blood ARTERIAL BLOOD / Unknown Venipuncture / Unknown 08/01/2024 8:20 AM EST 08/01/2024 8:30 AM EST Jay Silverio MD CHEMISTRY ORDERABL ES Performing Organization Address [facility] Co de Phone Number [facility] [place] [address] * POC, GLUCOSE (08/01/2024 7:44 AM EST) [facility] Glucometer, POC 86 65 - 199 mg/dL 08/01/2024 7:44 AM EST [facility] Comment:Supplemental ranges: <140 mg/dL before meals <180 mg/dL all other times of the day. Blood CAPILLARY BLOOD / Unknown 08/01/2024 7:44 AM EST 08/01/2024 7:44 AM EST Krystal Parker MD POINT OF CARE TEST O RDKAY Performing Organization Address [facility] Co de Phone Number [facility] [place] [address] * (ABNORMAL) CBC (with Diff) (08/01/2024 4:18 [...] ORDERABLE S [facility] [place] [address] * Magnesium (08/01/2024 4:18 AM EST) Magnesium 0.74 0.69 - 1.07 mMol/L 08/01/2024 5:00 AM [facility] Blood VENOUS BLOOD SPECIMEN / Unknown Venipuncture / Unknown 08/01/2024 4:18 AM EST 08/01/2024 4:29 AM EST Bridgette Stauffer MD CHEMISTRY ORDERABLES [facility] [place] [address] * (ABNORMAL) Basic Metabolic Panel (08/01/2024 4:18 [...] ORDERABLES Performing Organization Address [facility] Co de Phone Number [facility] [place] [address] * POC, GLUCOSE (07/31/2024 8:41 PM EST) [facility] Signature Glucometer, POC 73 65 - 199 mg/dL 07/31/2024 8:41 PM EST [facility] Comment:Supplemental ranges: <140 mg/dL before meals <180 mg/dL all other times of the day. Blood CAPILLARY BLOOD / Unknown 07/31/2024 8:41 PM EST 07/31/2024 8:41 PM EST Krystal Parker MD POINT OF CARE TEST O RDERABLES Performing Organization Address [facility] de Phone Number [facility] [place] [address] * CARDIAC CATHETERIZATION (07/31/2024 5:53 PM EST) Anatomical Region Laterality Modality Other Narrative 08/01/2024 12:37 PM EST ?[facility] ? Cardiac Catheterization/Intervention Report ? Patient Name: Korey Montoya Kyrie. ? Procedure Date: 07/31/2024 ? A #: [id number] ? Primary Physician: Janelle, Maldonado T ? Case #: [id number] ? File Name: [id number] ? Catheterization Order Number: [id number] ? [facility] ? Final Report [place], [place] ? Patient Name: ? Korey P. Montoya ?ID#: ?[id number] ? : ?1950 ? Procedure Date: ? July 31, 2024 ?Case #: ? [id number] ? Room: ? 1 ? Case Physician: ? Mladonado Luis M.D. ?Start: ?17:10 ? Admission: ??07/29/2024 [...] was designated as ASA Class IV. The CS clinical frailty scale ?is 4: Vulnerable. ? [...] ? Comments: ?Impella removed from the right CARD BRUSHER with deployment of Perclose and ?Angioseal. ??Good [...] Procedure Note Maldonado Luis MD - 08/01/2024 [facility] Cardiac Catheterization/Intervention Report Patient Name: Korey MontoyaToby Procedure Date: 07/31/2024 A #: [id number] Primary Physician: Maldonado Luis Case #: [id number] File Name: [id number] Catheterization Order Number: [id number] [facility] FinalReport [place], [place] Patient Name: Korey Montoya ID#:[id number] :1950 Procedure Date: July 31, 2024 Case [...] was designated as ASA Class IV. The [facility] clinical frailtyscale is 4: Vulnerable. Diagnostic [...] procedures. Comments: Impella removed from the right CARD BRUSHER with deployment of Perclose and Angioseal. Good [...] * POC, GLUCOSE (07/31/2024 11:04 AM EST) [facility] Glucometer, POC 82 65 - 199 mg/dL 07/31/2024 11:04 AM EST [facility] Comment:Supplemental ranges: <140 mg/dL before meals <180 mg/dL all other times of the day. Blood CAPILLARY BLOOD / Unknown 07/31/2024 11:04 AM EST 07/31/2024 11:04 AM EST Krystal Parker MD POINT OF CARE TEST O RDERABLES [facility] [place] [address] * (ABNORMAL) Blood Gas, Arterial POC (07/31/2024 [...] -3.0 - 3.0 mmol/L 07/31/2024 8:30 AM EST [facility] Hemoglobin, Arterial 12.3(L) 13.7 - [...] CARE TEST O RDERABLES Performing Organization Address City/[facility]/ZIP Co de Phone Number [facility] [place] [address] * POC, GLUCOSE (07/31/2024 7:47 AM EST) [facility] Glucometer, POC 82 65 - 199 mg/dL 07/31/2024 7:53 AM [facility] Comment:Supplemental ranges: <140 mg/dL before meals <180 mg/dL all other times of the day. Blood CAPILLARY BLOOD / Unknown 07/31/2024 7:47 AM EST 07/31/2024 7:53 AM EST Krystal Parker MD POINT OF CARE TEST O PEYTONERASHAY Performing Organization Address [facility] Co de Phone Number [facility] [place] [address] * (ABNORMAL) CBC (with Diff) (07/31/2024 1:08 AM EST) [facility] White Blood Cell 10.25(H) 4.00 - [...] - 0.40 x10(3)/mc L 07/31/2024 1:28 AM [facility] Basophil % 0.3 % 07/31/2024 1:28 AM EST [facility] Baso Absolute <0.04 0.00 - 0.10 x10(3)/mc L 07/31/2024 1:28 AM [facility] Immature Gran % 0.2 % 1:28 AM [facility] Immature Gran Absolute <0.04 0.00 - 0.04 x10(3)/mc L 07/31/2024 1:28 AM EST [facility] Blood VENOUS BLOOD SPECIMEN / Unknown Venipuncture / Unknown 07/31/2024 1:08 AM EST 07/31/2024 1:18 AM EST Bridgette Stauffer MD HEMATOLOGY ORDERABLE S Performing Organization Address City/[facility]/ZIP Co de Phone Number [facility] [place] [address] * Magnesium (07/31/2024 1:08 AM EST) Magnesium 0.89 0.69 - 1.07 mMol/L 07/31/2024 1:46 AM [facility] Blood VENOUS BLOOD SPECIMEN / Unknown Venipuncture / Unknown 07/31/2024 1:08 AM EST 07/31/2024 1:18 AM EST Bridgette Stauffer MD CHEMISTRY ORDERABLES [facility] [place] [address] * (ABNORMAL) Basic Metabolic Panel (07/31/2024 1:08 AM EST) Glucose 97 65 - 199 mg/dL 07/31/2024 1:46 AM [facility] Comment:Glucose Concentratio n >=200 mg/dL plus symptoms is consistent with Diabetes Mellitus. Blood Urea Nitrogen 11 10 - 20 mg/dL 07/31/2024 1:46 AM EST [facility] Creatinine 0.96 0.80 - 1.50 mg/dL 07/31/2024 1:46 AM EST [facility] Sodium 140 135 - 145 mMol/L 07/31/2024 1:46 AM EST [facility] Potassium 4.1 3.5 - 5.0 mMol/L 07/31/2024 1:46 AM [facility] Chloride 110(H) 98 - 107 mMol/L 07/31/2024 1:46 AM EST [facility] Carbon Dioxide 24 22 - 31 mMol/L 07/31/2024 1:46 AM EST [facility] Anion Gap 6 5 - [...] CHEMISTRY ORDERABLES [facility] [place] [address] * (ABNORMAL) Hepatic Function Panel (07/31/2024 1:08 [...] CHEMISTRY ORDERABLES [facility] [place] [address] * POC, GLUCOSE (07/30/2024 8:03 PM EST) Glucometer, POC 86 65 - 199 mg/dL 07/30/2024 8:03 PM EST [facility] Comment:Supplemental ranges: <140 mg/dL before meals <180 mg/dL all other times of the day. Blood CAPILLARY BLOOD / Unknown 07/30/2024 8:03 PM EST 07/30/2024 8:03 PM EST Krystal Parker MD POINT OF CARE TEST O RDERABLES [facility] [place] [address] * Potassium (07/30/2024 8:03 PM EST) Potassium 3.8 3.5 - 5.0 mMol/L 07/30/2024 9:13 PM EST [facility] Blood VENOUS BLOOD SPECIMEN / Unknown Venipuncture / Unknown 07/30/2024 8:03 PM EST 07/30/2024 8:22 PM EST Jay Silverio MD CHEMISTRY ORDERABL ES [facility] [place] [address] * POC, GLUCOSE (07/30/2024 6:23 PM EST) Glucometer, POC 93 65 - 199 mg/dL 07/30/2024 6:24 PM EST [facility] Comment:Supplemental ranges: <140 mg/dL before meals <180 mg/dL all other times of the day. Blood CAPILLARY BLOOD / Unknown 07/30/2024 6:23 PM EST 07/30/2024 6:24 PM EST Krystal Parker MD POINT OF CARE TEST O RDERABLES Performing Organization Address City/[facility]/ZIP Co de Phone Number [facility] [place] [address] * POC, GLUCOSE (07/30/2024 5:08 PM EST) [...] O RDERABLES [facility] [place] [address] * (ABNORMAL) Phosphorus (07/30/2024 3:08 PM EST) [facility] Phosphorus 2.1(L) 2.5 - 4.5 mg/dL 07/30/2024 3:58 PM EST [facility] Blood VENOUS BLOOD SPECIMEN / Unknown Venipuncture / Unknown 07/30/2024 3:08 PM EST 07/30/2024 3:12 PM EST Jay Silverio MD CHEMISTRY ORDERABL ES Performing Organization Address City/[facility]/ZIP Co de Phone Number [facility] [place] [address] * Magnesium (07/30/2024 3:08 PM EST) [facility] Magnesium 0.90 0.69 - 1.07 mMol/L 07/30/2024 3:58 PM EST [facility] Blood VENOUS BLOOD SPECIMEN / Unknown Venipuncture / Unknown 07/30/2024 3:08 PM EST 07/30/2024 3:12 PM EST Jay Silverio MD CHEMISTRY ORDERABL ES Performing Organization Address City/[facility]/ZIP Co de Phone Number [facility] [place] [address] * (ABNORMAL) Basic Metabolic Panel (07/30/2024 3:08 PM EST) [facility] Glucose 105 65 - 199 mg/dL 07/30/2024 [...] - 145 mMol/L 07/30/2024 4:17 PM EST [facility] Potassium 3.4(L) 3.5 - 5.0 mMol/L 07/30/2024 4:17 PM EST [facility] Chloride 109(H) 98 - 107 mMol/L 07/30/2024 4:17 PM [facility] Carbon Dioxide 21(L) 22 - 31 mMol/L 07/30/2024 4:17 PM [facility] Anion Gap 11 [...] ORDERABL ES [facility] [address] * ECHO LMTD W CONTRAST W LMTD SPEC DOPP COLOR DOPP (07/30/2024 11:42 AM EST) Anatomical Region Laterality Modality Cardiac Other 07/30/2024 10:2 2 AM EST Narrative 07/30/2024 12:[address] [address] ? Echocardiogram Report Name: KOREY MONTOYA ? Study Date: 07/30/2024 10:22 AMBP: 124/66 mmHg : 1950 ? Height: 168 cm ? Account: [id number] Age: 74 yrs ? Weight: 65 kg [...] Compared to the overnight study by the consulting project director fellow the impella position is stable. 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 Procedure Limited - [address]. Image enhancement Definity was used for both [...] cm/sec E/e' (lat): 6.4 Med Peak E' Carols: 6.9 cm/sec E/e' (med): 8.1 E/e' Average: [...] Note Kathleen Banda MD - 07/30/2024 [address] [place] [address] Echocardiogram Report Name: MONTOYAKOREY Study Date: 0:22 AMBP: 124/66 mmHg : 1950 Height: 168 cm Account: [id number] Age: 74 yrs Weight: 65 kg Gender: [...] Compared to the overnight study by the consulting project director fellow the impella positionis stable. The global left ventricular systolic function has improvedpredominantly via recruitment outside the LAD territory which remains akinetic. Procedure Limited - [address]. Image enhancement Definity was used for both [...] * POC, GLUCOSE (07/30/2024 11:17 AM EST) [facility] Glucometer, POC 97 65 - 199 mg/dL 07/30/2024 11:17 AM [facility] Comment:Supplemental ranges: <140 mg/dL before meals <180 mg/dL all other times of the day. Blood CAPILLARY BLOOD / Unknown 07/30/2024 11:17 AM EST 07/30/2024 11:17 AM EST Jay Silverio MD POINT OF CARE TEST ORDERABLES [facility] [place] [address] * (ABNORMAL) Blood Gas, Arterial POC (07/30/2024 8:16 AM EST) [facility] Signature pH, Arterial 7.44 7.35 - 7.45 07/30/2024 8:17 AM [facility] PCO2, Arterial 29(L) 35 - 45 mmHg 07/30/2024 8:17 AM [facility] PO2, Arterial 109(H) 85 - 104 mmHg 07/30/2024 8:17 AM [facility] Bicarbonate, Arterial 19.4(L) 20.0 [...] TEST ORDERABLES [facility] [place] [address] * (ABNORMAL) Troponin - Single (07/30/2024 8:09 [...] value can be found in the [facility] Test Catalog Troponin - https://[email or web address].org/catalogs/565/files/75996 Reference: Fourth [place] Definition of Myocardial Infarction. Journal of the [place] College [employer]iology 2018;72:5840-7222 Blood VENOUS BLOOD SPECIMEN / Unknown Venipuncture / Unknown 07/30/2024 8:09 AM EST 07/30/2024 8:26 AM EST Jay Silverio MD CHEMISTRY ORDERABL ES [facility] [place] [address] * POC, GLUCOSE (07/30/2024 7:40 AM EST) Glucometer, POC 111 65 - 199 mg/dL 07/30/2024 7:40 AM [facility] Comment:Supplemental ranges: <140 mg/dL before meals <180 mg/dL all other times of the day. Blood CAPILLARY BLOOD / Unknown 07/30/2024 7:40 AM EST 07/30/2024 7:40 AM EST Jay Silverio MD POINT OF CARE TEST ORDERABLES Performing Organization Address City/State/[facility] Co de Phone Number [facility] [place] [address] * (ABNORMAL) CBC (with Diff) (07/30/2024 2:11 [...] Immature Gran % 0.4 % 2:33 AM [facility] Immature Gran Absolute 0.05(H) 0.00 - 0.04 x10(3)/mc L 07/30/2024 2:33 AM EST [facility] Blood VENOUS BLOOD SPECIMEN / Unknown Venipuncture / Unknown 07/30/2024 2:11 AM EST 07/30/2024 2:22 AM EST Bridgette Stauffer MD HEMATOLOGY ORDERABLE S Performing Organization Address [facility] Co de Phone Number [facility] [place] [address] * Magnesium (07/30/2024 2:11 AM EST) Magnesium 1.01 0.69 - 1.07 mMol/L 07/30/2024 2:51 AM [facility] Blood VENOUS BLOOD SPECIMEN / Unknown Venipuncture / Unknown 07/30/2024 2:11 AM EST 07/30/2024 2:22 AM EST Bridgette Stauffer MD CHEMISTRY ORDERABLES Performing Organization Address [facility] Co de Phone Number [facility] [place] [address] * (ABNORMAL) Basic Metabolic Panel (07/30/2024 2:11 AM EST) Glucose 190 65 - 199 mg/dL 07/30/2024 2:51 AM [facility] Comment:Glucose Concentratio n >=200 mg/dL plus symptoms is consistent with Diabetes Mellitus. Blood Urea Nitrogen 15 10 - 20 mg/dL 07/30/2024 2:51 AM EST [facility] Creatinine 0.88 0.80 - 1.50 mg/dL 07/30/2024 2:51 AM [facility] Sodium 135 135 - 145 mMol/L 07/30/2024 2:51 AM [facility] Potassium 4.9 3.5 - 5.0 mMol/L 07/30/2024 2:51 AM EST [facility] Chloride 105 98 - 107 mMol/L 07/30/2024 2:51 AM EST [facility] Carbon Dioxide 19(L) 22 - 31 mMol/L 07/30/2024 2:51 AM EST [facility] Anion Gap 11 5 - 15 mMol/L 07/30/2024 2:51 AM [facility] Calcium 7.7(L) 8.5 - 10.5 mg/dL 07/30/2024 2:51 AM [facility] Est Glomerular [...] CHEMISTRY ORDERABLES [facility] [place] [address] * (ABNORMAL) Cooximetry, POC (07/30/2024 1:00 AM [...] OF CARE TEST ORDERABLES Performing Organization Address City/State/[facility] Co de Phone Number [facility] [place] [address] * (ABNORMAL) Blood Gas, Arterial POC (07/30/2024 [...] TEST ORDERABLES [facility] [place] [address] * (ABNORMAL) Troponin - Single (07/29/2024 10:31 [...] value can be found in the [facility] Test Catalog Troponin - https://[email or web address].testcatalog.org/catalogs/565/files/23517 Reference: Fourth [place] Definition of Myocardial Infarction. Journal of the [place] College [employer] Cardiology 2018;72:5389-3169 Blood VENOUS BLOOD SPECIMEN / Unknown Venipuncture / Unknown 07/29/2024 10:31 PM EST 07/29/2024 10:36 PM EST Yrn Ward MD CHEMISTRY ORDERABL ES Performing Organization Address City/[facility]/ZIP Co de Phone Number [facility] [place] [address] * Potassium (07/29/2024 8:11 PM EST) Potassium 4.1 3.5 - 5.0 mMol/L 07/29/2024 8:52 PM EST [facility] Blood VENOUS BLOOD SPECIMEN / Unknown Venipuncture / Unknown 07/29/2024 8:11 PM EST 07/29/2024 8:16 PM EST Jay Silverio MD CHEMISTRY ORDERABL ES [facility] [place] [address] * (ABNORMAL) Troponin - Single (07/29/2024 8:11 PM EST) Pathologist [facility] [place] Troponin-T, High Sensitivity >10,000(H ) <=22 ng/L [...] value can be found in the [facility] Test Catalog Troponin - https://[email or web address]-.testcatalog.org/catalogs/565/files/68246 Reference: Fourth [place] Definition of Myocardial Infarction. Journal of the [place] College [employer]iology 2018;72:8111-4573 Blood VENOUS BLOOD SPECIMEN / Unknown Venipuncture / Unknown 07/29/2024 8:11 PM EST 07/29/2024 8:16 PM EST Jay Silverio MD CHEMISTRY ORDERABL ES [facility] [place] [address] * (ABNORMAL) Phosphorus (07/29/2024 8:11 PM EST) Pathologist [facility] [place] Phosphorus 2.1(L) 2.5 - 4.5 mg/dL 07/29/2024 8:52 PM EST [facility] Blood VENOUS BLOOD SPECIMEN / Unknown Venipuncture / Unknown 07/29/2024 8:11 PM EST 07/29/2024 8:16 PM EST Jay Silverio MD CHEMISTRY ORDERABL ES Performing Organization Address [facility] Co de Phone Number [facility] [place] [address] * POC, GLUCOSE (07/29/2024 8:09 PM EST) Glucometer, POC 142 65 - 199 mg/dL 07/29/2024 8:09 PM EST [facility] Comment:Supplemental ranges: <140 mg/dL before meals <180 mg/dL all other times of the day. Blood CAPILLARY BLOOD / Unknown 07/29/2024 8:09 PM EST 07/29/2024 8:09 PM EST Jay Silverio MD POINT OF CARE TEST ORDERABLES Performing Organization Address [facility] Co de Phone Number [facility] [place] [address] * ABORH RECHECK (07/29/2024 6:43 PM EST) ABORH Recheck AB POSITIVE 07/29/2024 10:13 PM EST [facility] Blood VENOUS BLOOD SPECIMEN / Unknown Venipuncture / Unknown 07/29/2024 6:43 PM EST 07/29/2024 7:15 PM EST Jay Silverio MD BLOOD BANK LAB ORD ERABLES Performing Organization Address City/[facility] Co de Phone Number [facility] [place] [address] * POC, GLUCOSE (07/29/2024 5:57 PM EST) Glucometer, POC 166 65 - 199 mg/dL 07/29/2024 5:57 PM EST [facility] Comment:Supplemental ranges: <140 mg/dL before meals <180 mg/dL all other times of the day. Blood CAPILLARY BLOOD / Unknown 07/29/2024 5:57 PM EST 07/29/2024 5:57 PM EST Jay Silverio MD POINT OF CARE TEST ORDERABLES [facility] [place] [address] * Type and screen ([facility] [place]AL[place]) (07/29/2024 5:56 PM EST) [facility] ABORH Type AB POSITIVE 07/29/2024 9:44 PM EST [facility] PATIENT HISTORY Not Found 07/29/2024 9:44 PM EST [facility] Expires at [id number] on: 08/01/2024 07/29/2024 9:44 PM EST [facility] ANTIBODY SCREEN AUTOMATED Negative 07/29/2024 9:44 PM EST [facility] T&S only valid at [facility] 07/29/2024 9:44 PM EST [facility] Blood VENOUS BLOOD SPECIMEN / Unknown Venipuncture / Unknown 07/29/2024 5:56 PM EST 07/29/2024 6:07 PM EST Narrative [facility] - 07/29/2024 9:44 PM EST This Type and Screen result is only valid at the [facility] Jay Silverio MD BLOOD BANK LAB ORD ERABLES Performing Organization Address City/[facility]/ZIP Co de Phone Number [facility] [place] [place] [address] * (ABNORMAL) Troponin - Single (07/29/2024 4:52 PM EST) [facility] Troponin-T, High Sensitivity >10,000(H ) <=22 [...] value can be found in the [facility] Test Catalog Troponin - https://[facility]-.testcatalog.org/catalogs/565/files/51478 Reference: Fourth [place] Definition of Myocardial Infarction. Journal of the [place] College [employer]iology 2018;72:1157-0433 Blood VENOUS BLOOD SPECIMEN / Unknown Venipuncture / Unknown 07/29/2024 4:52 PM EST 07/29/2024 4:57 PM EST Jay Silverio MD CHEMISTRY ORDERABL ES [facility] [place] [address] * EKG 12 Lead (07/29/2024 4:21 PM EST) Ventricular rate 72 BPM MUSE SYSTEM Atrial Rate 72 BPM MUSE SYSTEM P-R Interval 168 ms MUSE SYSTEM QRS Duration 82 ms MUSE SYSTEM Q-T Interval 392 ms MUSE SYSTEM QTC Calculated (Bezet) 429 ms MUSE SYSTEM Calculated P Lyons 71 degrees MUSE SYSTEM Calculated R Lyons 77 degrees MUSE SYSTEM Calculated T Lyons 28 degrees MUSE SYSTEM INTERPRETATION Sinus rhythm [...] TEST ORDERABLES [facility] [place] [address] * POC, GLUCOSE (07/29/2024 4:19 PM EST) Glucometer, POC 185 65 - 199 mg/dL 07/29/2024 4:19 PM [facility] Comment:Supplemental ranges: <140 mg/dL before meals <180 mg/dL all other times of the day. Blood CAPILLARY BLOOD / Unknown 07/29/2024 4:19 PM EST 07/29/2024 4:19 PM EST Jay Silverio MD POINT OF CARE TEST ORDERABLES [facility] [place] [address] * Blood culture (07/29/2024 4:08 PM EST) Blood Culture No growth at 120 hours 08/03/2024 5:01 PM EST [facility] Blood VENOUS BLOOD SPECIMEN / Unknown Venipuncture / Unknown 07/29/2024 4:08 PM EST 07/29/2024 4:15 PM EST Jay Silverio MD MICROBIOLOGY - BLO OD ORDERABLES Performing Organization Address [facility] Co de Phone Number [facility] [place] [address] * Blood culture (07/29/2024 4:08 PM EST) Blood Culture No growth at 120 hours 08/03/2024 5:01 PM EST [facility] Blood VENOUS BLOOD SPECIMEN / Unknown Venipuncture / Unknown 07/29/2024 4:08 PM EST 07/29/2024 4:26 PM EST Jay Silverio MD MICROBIOLOGY - BLO OD ORDERABLES Performing Organization Address [facility] de Phone Number [facility] [place] [address] * XR Chest One View (07/29/2024 2:30 PM EST) WORKSTATION ID [id number] DH RAD Anatomical Region Laterality Modality Chest [...] who have questions please contact the health nanny caregiver that requested your imaging first. ? Electronically signed by: Chris Candelaria MD, [facility] ([phone]), at 07/29/2024 3:21 PM Narrative 07/29/2024 3:21 [...] patients who have questions please contactthe health nanny caregiver that requested your imaging first. Electronically signed by: Chris Candelaria MD, [facility]([phone]), at 07/29/2024 3:21 PM Vahe Marvin MD IMG DX ORDERABLES * (ABNORMAL) APTT (07/29/2024 2:03 PM EST) Partial Thromboplastin Time >160(HHH) 25 - 37 sec 07/29/2024 2:56 PM EST [facility] Blood VENOUS BLOOD SPECIMEN / Unknown Venipuncture / Unknown 07/29/2024 2:03 PM EST 07/29/2024 2:13 PM EST Vahe Marvin MD HEMATOLOGY ORDERABLE S [facility] [place] [address] * (ABNORMAL) Prothrombin Time (07/29/2024 2:03 PM EST) [facility] Prothrombin Time 14.2(H) 9.4 - 12.5 [...] EST Vahe Marvin MD HEMATOLOGY ORDERABLE S [facility] [place] [address] * CRP, acute inflammation (07/29/2024 2:03 PM EST) Pathologist [facility] [place] C-Reactive Protein <3.0 <=4.9 mg/L 07/29/2024 2:52 PM EST [facility] Blood VENOUS BLOOD SPECIMEN / Unknown Venipuncture / Unknown 07/29/2024 2:03 PM EST 07/29/2024 2:14 PM EST Vahe Marvin MD CHEMISTRY ORDERABLES [facility] [place] [address] * Lipid Panel (Reflex Direct LDL) (07/29/2024 [...] mg/dL LDL Cholesterol 64 mg/dL 2:52 PM [facility] Comment: [...] PM EST 07/29/2024 2:14 PM EST [facility] - 07/29/2024 2:52 PM EST It [...] artery disease) Vahe Marvin MD CHEMISTRY ORDERABLES [facility] [place] [address] * TSH [place] (07/29/2024 2:03 PM EST) Pathologist [facility] [place] Thyroid Stimulating Hormone 0.70 0.27 - 4.20 mcIU/mL 07/29/2024 2:52 PM EST [facility] Blood VENOUS BLOOD SPECIMEN / Unknown Venipuncture / Unknown 07/29/2024 2:03 PM EST 07/29/2024 2:14 PM EST Vahe Marvin MD CHEMISTRY ORDERABLES Performing Organization Address City/[facility] Co de Phone Number [facility] [place] [address] * Hemoglobin A1c (07/29/2024 2:03 PM EST) [...] red blood cell turnover may not be sales representative aircraft of glycemic control. Reference Interval: 4.3 - [...] [facility] - 07/29/2024 2:41 PM EST Estimated average glucose (eAG) is calculated from the equation described in: Quinten ALVES, Rikki J, Reno R, et al. ??Translating the A1C assay into estimated average glucose values. ??Diabetes Care 2008:31(8):4799-1057. Additional resources are available on the ADA website (diabetes.org). Vahe Marvin MD CHEMISTRY ORDERABLES [facility] [place] [address] * (ABNORMAL) CBC (with Diff) (07/29/2024 2:03 [...] - 48.5 % 07/29/2024 2:18 PM EST [facility] Mean Cell Volume 83.4 82.9 [...] Immature Gran % 0.5 % 2:18 PM [facility] Immature Gran Absolute 0.09(H) 0.00 - 0.04 x10(3)/mc L 07/29/2024 2:18 PM EST [facility] Blood VENOUS BLOOD SPECIMEN / Unknown Venipuncture / Unknown 07/29/2024 2:03 PM EST 07/29/2024 2:13 PM EST Vahe Marvin MD HEMATOLOGY ORDERABLE S [facility] [place] [address] * Phosphorus (07/29/2024 2:03 PM EST) Phosphorus 2.5 2.5 - 4.5 mg/dL 07/29/2024 2:52 PM EST [facility] Blood VENOUS BLOOD SPECIMEN / Unknown Venipuncture / Unknown 07/29/2024 2:03 PM EST 07/29/2024 2:14 PM EST Vahe Marvin MD CHEMISTRY ORDERABLES Performing Organization Address City/[facility]/ZIP Co de Phone Number [facility] [place] [address] * Magnesium (07/29/2024 2:03 PM EST) Magnesium 0.70 0.69 - 1.07 mMol/L 07/29/2024 2:52 PM EST [facility] Blood VENOUS BLOOD SPECIMEN / Unknown Venipuncture / Unknown 07/29/2024 2:03 PM EST 07/29/2024 2:14 PM EST Vahe Marvin MD CHEMISTRY ORDERABLES [facility] [place] [address] * (ABNORMAL) Comprehensive metabolic panel (07/29/2024 2:03 PM EST) Glucose 243(H) 65 - 199 mg/dL 07/29/2024 3:11 PM EST [facility] [...] 91 mL/min/1. 73 m?? 07/29/2024 3:11 PM [facility] Comment: This [...] CHEMISTRY ORDERABLES [facility] [place] [address] * (ABNORMAL) Troponin - Single (07/29/2024 2:03 PM EST) Pathologist [facility] [place] Troponin-T, High Sensitivity >10,000(H ) <=22 ng/L [...] value can be found in the [facility] Test Catalog Troponin - https://[email or web address].org/catalogs/565/files/98318 Reference: Fourth [place] Definition of Myocardial Infarction. Journal of the [place] College [employer]iology 2018;72:6208-9100 Blood VENOUS BLOOD SPECIMEN / Unknown Venipuncture / Unknown 07/29/2024 2:03 PM EST 07/29/2024 2:14 PM EST Vahe Marvin MD CHEMISTRY ORDERABLES [facility] [place] [address] * (ABNORMAL) Blood Gas, Venous POC (07/29/2024 [...] Venous 0.3 <=1.5 % 07/29/2024 2:02 PM [facility] Sodium, Venous 137 135 [...] - 2.2 mmol/L 07/29/2024 2:02 PM EST [facility] Ionized Calcium, Venous 1.11(L) 1.15 - 1.33 mmol/L 07/29/2024 2:02 PM EST [facility] Blood VENOUS BLOOD SPECIMEN / Unknown 07/29/2024 2:01 PM EST 07/29/2024 2:02 PM EST Vahe Marvin MD POINT OF CARE TEST O RDERABLES Performing Organization Address City/State/[facility] Co de Phone Number [facility] [place] [address] * CARDIAC CATHETERIZATION (07/29/2024 1:20 PM EST) Anatomical Region Laterality Modality Other Narrative 07/29/2024 2:02 PM EST ?[facility] ? Cardiac Catheterization/Intervention Report ? Patient Name: Korey Montoya Kyrie. ? Procedure Date: 07/29/2024 ? A #: [id number] ? Primary Physician: Vahe Marvin ? Case #: [id number] ? File Name: [id number] ? Catheterization Order Number: [id number] ? [facility] ? Final Report [place], [place] ? Patient Name: ? Korey P. Jan ?ID#: ?[id number] ? : ?1950 ? Procedure Date: ? July 29, 2024 ?Case #: ? [id number] ? Room: ? 5 ? Case Physician: [...] procedure was Emergent. The indication for ?the labor relations director visit is ACS less than or equal [...] 3.5 guiding catheter and a 3.5 Fr [facility] [address] ??20 Mhz using ?Manual pullback. ??Imaging [...] A premounted 3.00 x 22 mm Jeison Mcnairy (LOW) was deployed ? with a maximum [...] atmospheres. ??A premounted 3.00 x 08 mm Gallatin Mcnairy (LOW) ? was deployed with a maximum [...] dose administered prior to arrival in the labor relations director. ?Recommended anti-platelet/anti-thrombotic regimen: ?Start aspirin 81 mg daily now and continue for 12 months then stop. ?Start clopidogrel 75 mg daily now and continue for indefinitely. ?These recommendations are made at the time of the intervention. Patient ?and provider preferences or a changing clinical situation may require ?modification of this regimen. Consult [facility] Interventional Cardiology for ?questions. ?The [...] able ?to start weaning his inotropes/vasopressors. A Dunbar Coltete catheter was ?placed demonstrating improvement in his hemodynamics and the impella site ?was perclosed and hemostatic gauze was applied with excellent result. ?WIll transfer to the CV for further management. ?The attending physician was present for the entire procedure. ?Dr. Vahe Marvin M.D. was present during the moderate sedation ?intraservice time as documented by the sedation nurse. ??Case time = 01:26. ?Dr. Vahe Marvin M.D. performed the coronary angiography, left heart ?catheterization, IVUS # coronary, stent insertion-coronary, oximetry, ABG, ?transthoracic echo , ventricular assist device insertion, right heart ?catheterization, Dunbar (flow directed cath) insertion, access site ?angiography, vascular ultrasound, venous line / sheath insert and vascular ?closure device. ? Vahe Marvin M.D. ? Electronically Signed by: Vahe Marvin M.D. ? Report Finalized: 07/29/2024 ??13:55 ? Report Last Ammended: 09/20/2024 ??15:21 ? Procedure Note Vahe Marvin MD - 09/20/2024 [facility] Cardiac Catheterization/Intervention Report Patient Name: Korey Montoya Procedure Date: 07/29/2024 A #: [id number] Primary Physician: Vahe Marvin Case #: [id number] File Name: [id number] Catheterization Order Number: [id number] [facility] FinalReport [place], [place] Patient Name: Korey Montoya ID#:[id number] :1950 Procedure Date: July 29, 2024 Case [...] was designated as ASA Class IV. The [facility] clinical frailtyscale is 4: Vulnerable. Diagnostic Tests: Electrocardiography: EKG was assessed by ECG. EKG was Abnormal. EKG showed STDeviation >= 0.5 mm. Medications Prior to Procedure: Angiotensin II Receptor Elvis and Statin. Indications for Diagnostic Cath: The priority of the diagnostic procedure was Emergent. Theindication for the labor relations director visit is ACS less than or equal [...] 3.5 guiding catheter and a 3.5 Fr [facility] [address] 20 Mhzusing Manual pullback. Imaging was [...] The priority for the procedure was Emergent.The [facility] indication for the procedure was [...] The lesion was predilated with a 2.00mm [id number] MM balloon with a maximum inflation pressure of 12atmospheres. A premounted 3.00 x 22 mm Gallatin Mcnairy (LOW) wasdeployed with a maximum inflation pressure [...] atmospheres. A premounted 3.00 x 08 mm Gallatin Mcnairy(LOW) was deployed with a maximum inflation pressure [...] dose administered prior to arrival in the labor relations director. Recommended anti-platelet/anti-thrombotic regimen: Start aspirin 81 mg daily now and continue for 12 months then stop. Start clopidogrel 75 mg daily now and continue for indefinitely. These recommendations are made at the time of the intervention.Patient and provider preferences or a changing clinical situation mayrequire modification of this regimen. Consult [facility] Interventional Cardiologyfor questions. The 1 [...] wereable to start weaning his inotropes/vasopressors. A Dunbar Colette catheterwas placed demonstrating improvement in his [...] ventricular assist device insertion, right heart catheterization, Dunbar (flow directed cath) insertion, access site angiography, [...] O RDERABLES [facility] [address] * (ABNORMAL) BLOOD GAS, POC (07/29/2024 12:12 [...] POINT OF CARE TEST O RDERABLES [facility] [place] [address] documented in this encounter Visit Diagnoses Not [...] Routine documented in this encounter Care Teams Auto Adjudication Specialist Relationship Specialty Start Date End Date Alexia Mtz, [address] [place] [address] PCP - General Family Medicine 07/30/24 documented as of this encounter
--- OUTSIDE RECORDS SUMMARY | 2024-10-03 10:55 | XMS_ITS | Encounter Summary ---
Author Organization [facility] Address [facility] [place] [address] Care Team Providers Care Aboriginal Community Council Member Name Role Phone Yoel Artis FREDRICK Primary Care Provider [phone] Reason for Visit * Auth/Cert (Routine) Specialty Diagnoses / Procedures Referred By Theodore t Referred To Contact Diagnoses AIR[facility] Procedures [employer] [facility] Referral ID Status Reason Start Date Expiration Date Visits Re quested Visits Authorized [id number] 1 Encounter Details Date Type Department Care Team (Latest Contact Info) Description 07/29/2024 6:32 PM EST - 07/29/2024 11:59 PM [facility] Hospital Encounter [facility] at [address] [phone] Arvin Becerra MD [facility] [place] [address] Discharge Disposition: Home Social History Tobacco Use Types Packs/Day Years Used Date Smoking Tobacco: Former Cigarettes Smokeless Tobacco: Never Alcohol Use Standard Drinks/Week Comments Not Currently 0 (1 standard drink = 0.6 oz pur e alcohol) [facility] Utilities Answer Date Recorded [...] any time in the past 12 m [facility], were you homeless or living [...] 90 days. 15 tablet 2 08/05/2024 10/02/2024 simvastatin (Zocor) 20 mg tablet Take 20 mg by mouth every evening. 04/17/2023 08/04/2024 nitroGLYcerin (NITROLINGUAL) 400 mcg/spray [place], Non-AerosolIndications: Proctalgia fugax,Fecal smearing,Constipation, unspecified constipation type 1 spray to anus for proctalgia fugax as needed, not to exceed once daily 12 g 06/01/2023 08/04/2024 documented as of this encounter Plan of Treatment Upcoming Encounters Date Type Department Care Team (Late st Contact Info) Description 10/31/2024 9:30 AM EST Appointment Non[place] [phone] Mushtaq Murphy APRN 10/31/2024 11:00 AM EST Office Visit Cardiology at [address] [phone] Mushtaq Murphy APRN documented as of this encounter Visit Diagnoses Not on filedocumented in this encounter Care Teams Aboriginal Community [employer] Member Relationship Specialty Start Date End Date Yoel Artis APRN [address] [place] [id number] PCP - General Internal Medicine 11/18/22 07/29/24 documented as of this encounter
--- OUTSIDE RECORDS SUMMARY | 2024-10-03 10:55 | XMS_ITS | Encounter Summary ---
Author Organization [facility] Address [facility] [place] [address] Care Team Providers Care Supervisor Salvage Name Role Phone [place]Alexia shell Shun ALCALA Primary Care Provider [phone] Reason for Referral * Consultation (Routine) - Closed Specialty Diagnoses / Procedures Referred By Conteleazar t Referred To Contact Cardiology Diagnoses HFrEF (heart failure with reduced ejection fraction) [facility] S/P D/C acute HFrEF Alex Small MD [facility] [place] [address] [address] Mushtaq Murphy APRN [facility] [place] [address] Referral ID Status Reason Start Date Expiration Date V isits Requested Visits Authorized [id number] Closed Consult, Test & Treat 08/04/2024 08/04/2025 1 1 * Consultation (Routine) - Pending Review Specialty Diagnoses / Procedures Referred By Contac t Referred To Contact Cardiology Diagnoses ST elevation myocardial infarction involving left anterior descending (LAD) coronary artery Yrn Ward MD [facility] [place] [address] Cardiac Rehab, [facility] [address] [place] [address] Referral ID Status Reason Start Date Expiration Date Visits Requested Visits Authorized [id number] Pending Review Consult, Test & Treat 01/31/2025 36 36 Reason for Visit * Auth/Cert (Routine) Specialty Diagnoses / Procedures Referred By Contac t Referred To Contact Diagnoses STEMI (ST elevation myocardial infarction) STEMI Procedures ER IPI Vahe Marvin MD [facility] [place] [address] [facility] Referral ID Status Reason Start Date Expiration Date Visits Re quested Visits Authorized [id number] 1 1 Encounter Details Date Type Department Care Team (Latest Contact Info) Description 07/29/2024 11:45 AM EST - 08/04/2024 5:00 PM EST [place] [id number] Vahe Marvin MD [facility] [place] [address] Aubree Silverio MD [facility] [place] [address] Krystal Parker MD [facility] [place] [address] Bridgette Stauffer MD [facility] [place] [address] Yrn Ward MD [facility] [place] [address] Alex Small MD [facility] [place] [address] ST elevation myocardial infarction involving left anterior descending (LAD) coronary artery; HFrEF (heart failure with reduced ejection fraction) Discharge Disposition: Home Social History Tobacco Use Types Packs/Day Years Used Date Smoking Tobacco: Former Cigarettes Smokeless Tobacco: Never Alcohol Use Standard Drinks/Week Comments Not Currently 0 (1 standard drink = 0.6 oz pur e alcohol) [facility] Utilities Answer Date Recorded In the [...] any time in the past 12 m [facility], were you homeless or living [...] Provider Contact Information: ALEX SMALL POORNIMA KOSTOJCHIN, ANASTAS DADEKIAN, AUBREE KRYSTAL GOEL For questions regarding this document or issues relating to this hospitalization on the Medical Service, please contact your inpatient physician through the [facility] Starter . Issues afterhours and on weekends will [...] EKG. Patient transferred via air ambulance to [facility] on 07/29 for LHC and LOW to [...] EKG. Was transferred via air ambulance to [facility] for further management and LHC demonstrated 100% occlusion. No significant RCA, LMCA, or LCX disease. LOW placed in LAD with some residual distal disease meriting placement of overlapping distal stent. TTE showed apical akinesis and inferior hypokinesis with EF 20%. RHC showed elevated filling pressures. Impella placed and P-level 6 at time of transfer to [facility]. CI initially 1.97, improved to 2.2 [...] the next year. Access was via right HOT DOG VENDER and this sitewas clean, dry and intact [...] for Chest pain. Replaces: nitroGLYcerin 400 mcg/spray [place], Non-Aerosol 0.4 mg Quantity: 90 tablet Refills: [...] Refills: 0 STOPPED Medications nitroGLYcerin 400 mcg/spray [place], Non-Aerosol Commonly known as: NITROLINGUAL Replaced by: [...] of one year. After this time, your bulb planter will determine if you need to continue [...] away. Stay on the phone. The emergency stereoplotter operator will tell you what to do. [...] appointments: During 8am-5pm Tuesday through Tuesday call [phone] to speak with a nurse in the cardiology clinic All other times call [phone] and ask to speak to the funder mental retardation nurse. Follow up Appointments: PCP Alexia Mtz, [employer] [phone]. Please call to establish a follow up appointment within 1-2 weeks of discharge. Cardiology. Referral to heart failure has been sent. General Instructions None Future Appointments and Orders Future Orders Complete By Expires Referral to Cardiac Rehab [MPI216 Custom] As directed Process Instructions: If no progress note charted, please enter Clinical details in comments. Scheduling Instructions: Questions: My question or request is: STEMI, PCI- cardiac rehab at [facility] Referral to Cardiology [REF12 Custom] [...] of one year. After this time, your bulb planter will determine if you need to continue [...] away. Stay on the phone. The emergency stereoplotter operator will tell you what to do. [...] appointments: During 8am-5pm Tuesday through Tuesday call [phone] to speak with a nurse in the cardiology clinic All other times call [phone] and ask to speak to the funder mental retardation nurse. Follow up Appointments: PCP Alexia Mtz, [employer] [phone]. Please call to establish a follow up [...] EKG. Patient transferred via air ambulance to [facility] on 07/29 for LHC and LOW to LAD for 100% occlusion Social History: Pt lives with his in a 1 level home with 2 NAOMI. Pt was indep CIRCULAR SAW FILER. 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 He [...] Total time: 35 (tef) minutes Time IN/OUT: 3812-6003 ZAIDA DUBOSE, PT Pager: [phone] Physical Therapy Inpatient Rehabilitation Department * Yrn Ward MD - 08/03/2024 10:38 AM EST CV HOSPITALIST 2 - [facility] DAILY PROGRESS NOTE Page [phone] to reach a provider 04/04 Admit Date: [...] Skin: warm Labs: Recent Labs 08/03/24 0516 08/02/2441908/01/2441707/31/2410707/30/24210 WBC 7.85 8.51 8.51 10.25* 11.25* HGB 11.8* 12.2* 11.2* 11.2* 12.2* HCT 35.9* 35.8* 33.8* 33.9* 37.1* PLATELET 142* 111* 94* 109* 166 MCV 81.0* 81.2* 82.0* 82.1* 82.4* Recent Labs 08/03/24 0516 08/02/2441908/01/24203808/01/2481908/01/2441707/31/2410707/30/24200207/30/24 1508 07/30/2421007/29/24201007/29/24 1403 NA 137 139 -- [...] Compared to the overnight study by the mental retardation nurse fellow the impella position is stable. 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 [facility] 07/29/24 Conclusions: * One vessel coronary artery disease (LAD) * Mild pulmonary hypertension * Elevated pulmonary capillary wedge pressure * Successful stent insertion of the proximal LAD lesion * See Dual Antiplatelet (DAPT) Recommendations above * Successful impella placement for cardiogenic shock. Telemetry: I have personally reviewed and interpreted the telemetry from the last 24 hours. [facility] Assessment: ASSESSMENT: Korey Montoya is a 74 y.o. male w/ PMH of hypertension, HLD, and BPH who presents for chief concern of chest pain after being found to have ST elevations on EKG. Patient transferred via air ambulance to [facility] on 07/29 for LHC and LOW to [...] to be determined OT: PCP Alexia Mtz, [employer] [phone] * Zaida Dubose, PT - 08/02/2024 2:08 PM EST Physical Therapy Evaluation Patient profile: Korey Montoya is a 74 y.o. male w/ PMH of hypertension, HLD, and BPH who presents for chief concern of chest pain after being found to have ST elevations on EKG. Patient transferred via air ambulance to [facility] on 07/29 for LHC and LOW to LAD for 100% occlusion Social History: Pt lives with his in a 1 level home with 2 NAOMI. Pt was indep CIRCULAR SAW FILER. 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 He [...] Total time: 37 (eval) minutes Time IN/OUT: 2140-7910 ZAIDA DUBOSE PT Pager: [phone] Physical Therapy Inpatient Rehabilitation Department * Gagan [...] EKG. Patient transferred via air ambulance to [facility] on 07/29 for LHC and LOW to LAD for 100% occlusion. TTE showed apical akinesis and inferior hypokinesis with EF 20%. RHC showed elevated filling pressures. Impella placed and P-level 6 at time of transfer to [facility]. CI initially 1.97, improved to 2.2 After impella. Received about 3 L of fluid during procedural course. Patient initially required norepinephrine 30, epinephrine 10, and vasopressin 0.04 for hemodynamic support, which was weaned upon arrival to [facility] to norepinephrine 20and levo 0.04 N [...] PCP: Alexia Mtz APRN PCP phone number: [phone] Date of Admission: 07/29/2024 ( Hospital Day 4 days ) Attending:Bridgette Stauffer MD ID: Korey Montoya is a 74 y.o. male w/ PMH of hypertension, HLD, and BPH on Hospital Day4 for chief concern of chest pain after being found to have ST elevations on EKG. Patient transferred via air ambulance to [facility] on 07/29 for LHC and LOW to [...] 07/29/24 1621 PHART 7.48* 7.44 7.38 7.37 [id number] 29* 29* 34* 36 PO2ART 71* 109* 141* 71* NHZ0OQC 20.6 19.4* 19.5* 20.4 VBG (Venous Blood Gas) Recent Labs 07/29/24 1401 PHVEN 7.30* PO2VEN 39 VUJ7LDE 20.1* Mixed Venous Sat No results for input(s): A5SVQD4 in the last 168 hours. Objective: Vitals [...] Infusing 07/30/24 0600 Dressing Status Clean;Dry;Intact 07/30/24 06 Dressing [...] 0744 07/31/24 2041 07/31/24 1104 07/31/24 0747 07/30/24200207/30/24 1823 07/30/24 1708 07/30/24 1117 POCGLU 89 112 99 130 86 73 82 82 86 93 78 97 Heme No results for input(s): LDH, HAPTOGLOBIN, URICACID in the last 168 hours. ABG (Arterial Blood Gas) Recent Labs 07/31/24 0829 07/30/24 0816 07/30/24 0057 07/29/24 1621 PHART 7.48* 7.44 7.38 7.37 TKM9GQF 29* 29* 34* 36 PO2ART 71* 109* 141* 71* JGL2GQQ 20.6 19.4* 19.5* 20.4 VBG (Venous Blood Gas) Recent Labs 07/29/24 1401 PHVEN 7.30* PO2VEN 39 AWG6GJN 20.1* Mixed Venous Sat No results for input(s): J3DKHS7 in the last 168 hours. Microbiology: Microbiology Results (Last 30 days) Procedure Component Value Units Date/Time Blood culture [[id number]] Collected: 07/29/241607 Lab Status: Preliminary result Specimen: Blood, Venous Updated: 08/01/241700 Blood Culture No growth at 72 hours Blood culture [[id number]] Collected: 07/29/241607 Lab Status: Preliminary result Specimen: Blood, Venous Updated: 08/01/241700 Blood Culture No growth at 72 hours Imaging: Results for orders placed or performed during the hospital encounter of 07/29/24 XR Chest One View (Exam End: 07/29/2024 2:30 PM) Result Value WORKSTATION ID [id number] Impression 1. No pulmonary edema. 2. No pleural effusion. 3. No pneumothorax. Thank you for letting us participate in the care of this patient. If you are a health care provider and have any questions regarding this report, please contact the number below. For patients who have questions please contact the health patient care provider that requested your imaging first. Electronically signed by: Chris Candelaria MD, [facility] ([phone]), at 07/29/2024 3:21 PM TTE ( 07/30/24) [...] Compared to the overnight study by the mental retardation nurse fellow the impella position is stable. The [...] EKG. Patient transferred via air ambulance to [facility] on 07/29 for LHC and LOW to [...] Ornelas MD Internal Medicine, PGY-1 Cardiology, CV 08/02/24 12:45 PM CARDIOLOGY STAFF NOTE I [...] Transfer to floor. Krystal Parker MD, [facility], [facility] Staff [employer] Upholsterer human resources benefits assistant * Gagan Catherine MD - 08/01/2024 11:12 [...] EKG. Patient transferred via air ambulance to [facility] on 07/29 for LHC and LOW to [...] PCP: Alexia Mtz APRN PCP phone number: [phone] Date of Admission: 07/29/2024 ( Hospital Day 3 days ) Attending:Krystal Parker MD ID: Korey Montoya is a 74 y.o. male w/ PMH of hypertension, HLD, and BPH on Hospital Day3 for chief concern of chest pain after being found to have ST elevations on EKG. Patient transferred via air ambulance to [facility] on 07/29 for LHC and LOW to [...] 07/29/24 1621 PHART 7.48* 7.44 7.38 7.37 YTK3DVQ 29* 29* 34* 36 PO2ART 71* 109* 141* 71* GSZ4BZI 20.6 19.4* 19.5* 20.4 VBG (Venous Blood Gas) Recent Labs 07/29/24 1401 PHVEN 7.30* PO2VEN 39 JGP9RQV 20.1* Mixed Venous Sat No results for input(s): N8UYOB6 in the last 168 hours. PA Catheter [...] symptoms 07/30/24599 Infiltration 0-->no symptoms 07/30/24 06 Waveform normal 07/30/24599 Pressure Catheter Interventions line [...] Line Status Infusing 07/30/24599 Dressing Status Clean;Dry;Intact 07/30/24 06 Dressing Intervention [...] 08/01/24 0418 07/31/24 0108 07/30/24200207/30/24 1508 07/30/24 02107/29/24201007/29/24 1403 NA 137 140 -- 141 135 [...] 07/29/24 1621 PHART 7.48* 7.44 7.38 7.37 NJV1VAF 29* 29* 34* 36 PO2ART 71* 109* 141* 71* PIM5LUQ 20.6 19.4* 19.5* 20.4 VBG (Venous Blood Gas) Recent Labs 07/29/24 1401 PHVEN 7.30* PO2VEN 39 OHB2HKJ 20.1* Mixed Venous Sat No results for input(s): N4WHQQ5 in the last 168 hours. Microbiology: Microbiology Results (Last 30 days) Procedure Component Value Units Date/Time Blood culture [[id number]] Collected: 07/29/241607 Lab Status: Preliminary result Specimen: Blood, Venous Updated: 07/31/24 170 Blood Culture No growth at 48 hours Blood culture [[id number]] Collected: 07/29/241607 Lab Status: Preliminary result Specimen: Blood, Venous Updated: 07/31/24 170 Blood Culture No growth at 48 hours Imaging: Results for orders placed or performed during the hospital encounter of 07/29/24 XR Chest One View (Exam End: 07/29/2024 2:30 PM) Result Value WORKSTATION ID [id number] Impression 1. No pulmonary edema. 2. No pleural effusion. 3. No pneumothorax. Thank you for letting us participate in the care of this patient. If you are a health care provider and have any questions regarding this report, please contact the number below. For patients who have questions please contact the health patient care provider that requested your imaging first. Electronically signed by: Chris Candelaria MD, [facility] ([phone]), at 07/29/2024 3:21 PM TTE ( 07/30/24) [...] Compared to the overnight study by the mental retardation nurse fellow the impella position is stable. The [...] EKG. Patient transferred via air ambulance to [facility] on 07/29 for LHC and LOW to [...] Susannah Ornelas MD Internal Medicine, PGY-1 Cardiology, [facility] 08/01/24 7:13 AM CARDIOLOGY STAFF NOTE [...] with him; questions answered. Krystal Parker MD, FAC, [facility] [employer] human resources benefits assistant * Krystal Parker MD - 07/31/2024 1:06 [...] 64.1 kg (141 lb 5 oz) Mr. Montoya's developed cardiogenic shock after presenting with an [...] ILL WITH THESE DIAGNOSES BEING MANAGED BY [facility] TEAM: # Anterior STEMI, late-presenting # [...] EKG. Patient transferred via air ambulance to [facility] on 07/29 for LHC and LOW to LAD for 100% occlusion. TTE showed apical akinesis and inferior hypokinesis with EF 20%. RHC showed elevated filling pressures. Impella placed and P-level 6 at time of transfer to [facility]. CI initially 1.97, improved to 2.2 After impella. Received about 3 L of fluid during procedural course. Patient initially required norepinephrine 30, epinephrine 10, and vasopressin 0.04 for hemodynamic support, which was weaned upon arrival to [facility] to norepinephrine 20and levo 0.04 N [...] PCP: Alexia Mtz APRN PCP phone number: [phone] Date of Admission: 07/29/2024 ( Hospital Day 2 days ) Attending:Krystal Parker MD ID: Korey Montoya is a 74 y.o. male w/ PMH of hypertension, HLD, and BPH on Hospital Day2 for chief concern of chest pain after being found to have ST elevations on EKG. Patient transferred via air ambulance to [facility] on 07/29 for LHC and LOW to [...] 25 mEq infusion 12 mL/hr at 07/31/24 08 AMIOdarone 0.5 mg/min (07/31/24799) heparin (porcine) infusion 7 Units/kg/hr (07/31/24799) ABG (Arterial Blood Gas) Recent Labs 07/30/24 0816 07/30/24 0057 07/29/24 1621 PHART 7.44 7.38 7.37 NBI3NGS 29* 34* 36 PO2ART 109* 141* 71* XSS5UAQ 19.4* 19.5* 20.4 VBG (Venous Blood Gas) Recent Labs 07/29/24 1401 PHVEN 7.30* PO2VEN 39 ZMP8OUX 20.1* Mixed Venous Sat No results for input(s): C5CCQC2 in the last 168 hours. PA Catheter #'s PA Catheter PAP (mmHg): 48/18 (07/31/24799) PAP (mean): 28 (07/31/24799) CO (l/min): 4.8 l/min (07/31/24 040) CI (l/min/m2): 2.8 l/min/m2 (07/31/24405) SVR (dyne*sec)/cm2: 1147 (dyne*sec)/cm2 (07/31/24 040) SVRI (dyne*sec)/cm2: 1961 (dyne*sec)/cm5 (07/31/24405) Stroke Volume (ml): 70.7 ml (07/31/24 040) CVP (mmHg): 10 mmHg (07/31/24 0800) @4AM [...] Infusing 07/30/24 0600 Dressing Status Clean;Dry;Intact 07/30/24 06 Dressing [...] 0057 07/29/24 1621 PHART 7.44 7.38 7.37 RTC7DIY 29* 34* 36 PO2ART 109* 141* 71* HST8BKZ 19.4* 19.5* 20.4 VBG (Venous Blood Gas) Recent Labs 07/29/24 1401 PHVEN 7.30* PO2VEN 39 NTG4UGK 20.1* Mixed Venous Sat No results for input(s): Z8NUAO3 in the last 168 hours. Microbiology: Microbiology Results (Last 30 days) Procedure Component Value Units Date/Time Blood culture [[id number]] Collected: 07/29/241607 Lab Status: Preliminary result Specimen: Blood, Venous Updated: 07/30/241700 Blood Culture No Growth at 18-24 hrs. Blood culture [[id number]] Collected: 07/29/241607 Lab Status: Preliminary result Specimen: Blood, Venous Updated: 07/30/241700 Blood Culture No Growth at 18-24 hrs. Imaging: Results for orders placed or performed during the hospital encounter of 07/29/24 XR Chest One View (Exam End: 07/29/2024 2:30 PM) Result Value WORKSTATION ID [id number] Impression 1. No pulmonary edema. 2. No pleural effusion. 3. No pneumothorax. Thank you for letting us participate in the care of this patient. If you are a health care provider and have any questions regarding this report, please contact the number below. For patients who have questions please contact the health patient care provider that requested your imaging first. Electronically signed by: Chris Candelaria MD, [facility] ([phone]), at 07/29/2024 3:21 PM TTE ( 07/30/24) [...] Compared to the overnight study by the mental retardation nurse fellow the impella position is stable. The [...] EKG. Patient transferred via air ambulance to [facility] on 07/29 for LHC and LOW to [...] work to optimize volume status while continuing ltiigig-npfjom-jytsvxgrsn therapies at this time. Obtain comprehensive TTE. [...] EKG. Patient transferred via air ambulance to [facility] on 07/29 for LHC and LOW to LAD for 100% occlusion. TTE showed apical akinesis and inferior hypokinesis with EF 20%. RHC showed elevated filling pressures. Impella placed and P-level 6 at time of transfer to [facility]. CI initially 1.97, improved to 2.2 After impella. Received about 3 L of fluid during procedural course. Patient initially required norepinephrine 30, epinephrine 10, and vasopressin 0.04 for hemodynamic support, which was weaned upon arrival to [facility] to norepinephrine 20and levo 0.04 N [...] PCP: Yoel Artis APRN PCP phone number: [phone] Date of Admission: 07/29/2024 ( Hospital Day 1 day ) Attending:Aubree Silverio MD ID: Korey Montoya is a 74 y.o. male w/ PMH of hypertension, HLD, and BPH on Hospital Day1 for chief concern of chest pain after being found to have ST elevations on EKG. Patient transferred via air ambulance to [facility] on 07/29 for LHC and LOW to [...] 0057 07/29/24 1621 PHART 7.44 7.38 7.37 HWA4QML 29* 34* 36 PO2ART 109* 141* 71* QNG4PYV 19.4* 19.5* 20.4 VBG (Venous Blood Gas) Recent Labs 07/29/24 1401 PHVEN 7.30* PO2VEN 39 EAG9CPR 20.1* Lactate ( Last 12 hours) 1.3 >> 1.2 Mixed Venous Sat No results for input(s): C4XRKV7 in the last 168 hours. PA Catheter [...] dressing: dry and intact 07/30/24 0[address] guard in place 07/29/241999 Patency/Maintenance [...] 07/29/241999 Waveform normal 07/30/24599 Phlebitis 0-->no symptoms 07/30/24 06 Infiltration 0-->no [...] last 168 hours. Recent Labs 07/30/24 0809 07/29/241 07/29/242010 TROPONINTHS 8,651* >10,000* >10,000* Recent Labs [...] 0057 07/29/24 1621 PHART 7.44 7.38 7.37 ZCV1BJC 29* 34* 36 PO2ART 109* 141* 71* MOS1UXT 19.4* 19.5* 20.4 VBG (Venous Blood Gas) Recent Labs 07/29/24 1401 PHVEN 7.30* PO2VEN 39 BKB9MVP 20.1* Mixed Venous Sat No results for input(s): Q1HUKI8 in the last 168 hours. Microbiology: Microbiology Results (Last 30 days) Procedure Component Value Units Date/Time Blood culture [[id number]] Collected: 07/29/24 160 Lab Status: In process Specimen: Blood, Venous Updated: 07/29/24 162 Blood culture [[id number]] Collected: 07/29/241607 Lab Status: In process Specimen: Blood, Venous Updated: 07/29/24 161 Imaging: Results for orders placed or performed during the hospital encounter of 07/29/24 XR Chest One View (Exam End: 07/29/2024 2:30 PM) Result Value WORKSTATION ID [id number] Impression 1. No pulmonary edema. 2. No pleural effusion. 3. No pneumothorax. Thank you for letting us participate in the care of this patient. If you are a health care provider and have any questions regarding this report, please contact the number below. For patients who have questions please contact the health patient care provider that requested your imaging first. Electronically signed by: Chris Candelaria MD, [facility] ([phone]), at 07/29/2024 3:21 PM Medications Scheduled Meds: [...] EKG. Patient transferred via air ambulance to [facility] on 07/29 for LHC and LOW to [...] Susannah Ornelas MD Internal Medicine, PGY-1 Cardiology, [facility] 07/30/24 10:41 AM documented in this encounter [...] EKG. Patient transferred via air ambulance to [facility] on 07/29 for LHC and LOW to [...] EKG. Was transferred via air ambulance to [facility] for further management and [facility] demo nstrated 100% occlusion. No significant [...] 4.57) performed by Brandan Mcgovern MD [facility] ENDOSCOPY Significant Family History: Family [...] mouth. Past Week nitroGLYcerin (NITROLINGUAL) 400 mcg/spray [place], Non-Aerosol 1 spray to anus for proctalgia [...] 3.5 guiding catheter and a 3.5 Fr [place] [facility] [place] [facility] 20 Mhz using Manual pullback. Imaging [...] A premounted 3.00 x 22 mm [place] (LOW) was deployed with a maximum inflation [...] A premounted 3.00 x 08 mm [place] (LOW) was deployed with a maximum inflation [...] a limited study performed by a fellow mental retardation nurse to evaluate for cardiogenic shock with impella [...] Compared to the overnight study by the mental retardation nurse fellow the impella position is stable. The [...] EKG. Patient transferred via air ambulance to [facility] on 07/29 for LHC and LOW to [...] PCP: Yoel Artis APRN PCP phone number: [phone] Date of Admission: 07/29/2024 ( Hospital Day 0 days ) Attending:Aubree Silverio MD ID: Korey Montoya is a 74 y.o. male w/ PMH of hypertension, HLD, and BPH who presents for chief concern of chest pain after being found to have ST elevations on EKG. Patient transferred via air ambulance to [facility] on 07/29 for LHC and LOW to LAD for 100% occlusion. HPI: Korey Montoya is a 74 y.o. male w/ PMH of hypertension, HLD, and BPH who presents for chief concern of chest pain after being found to have ST elevations on EKG. Patient transferred via air ambulance to [facility] on 07/29 for LHC and LOW to [...] EKG. Was transferred via air ambulance to [facility] for further management and LHC demonstrated 100% occlusion. No significant RCA, LMCA, or LCX disease. LOW placed in LAD with some residual distal disease meriting placement of overlapping distal stent. TTE showed apical akinesis and inferior hypokinesis with EF 20%. RHC showed elevated filling pressures. Impella placed and P-level 6 at time of transfer to [facility]. CI initially 1.97, improved to 2.2 [...] 4.57) performed by Brandan Mcgovern MD [facility] ENDOSCOPY Family History Family History [...] Not on file CODE: Full code DPOA: LUCERO Litzy Myron Alcohol: not for 42 years Tobacco: [...] Blood Gas) No results for input(s): PHART, XUA1STS, PO2ART, NOO8RUO, LACTATEVEN, JVM2YKW, PFRATIOART2 in the last 168 hours. VBG (Venous Blood Gas) Recent Labs 07/29/24 1401 PHVEN 7.30* PO2VEN 39 VIG6CLV 20.1* Mixed Venous Sat No results for input(s): G7IKXC5 in the last 168 hours. PA Catheter [...] Blood Gas) No results for input(s): PHART, SAO9RKQ, PO2ART, WMC9SWX, LACTATEVEN, CTL6RYP, PFRATIOART2 in the last 168 hours. VBG (Venous Blood Gas) Recent Labs 07/29/24 1401 PHVEN 7.30* PO2VEN 39 OHY0EKQ 20.1* Mixed Venous Sat No results for input(s): Q9EMUJ5 in the last 168 hours. Microbiology: Microbiology [...] EKG. Patient transferred via air ambulance to [facility] on 07/29 for [facility]. Found to have 100% occlusion of LAD for which he underwent LOW to LAD.Otherwise no other significant vessel disease. Fahad is currently hemodynamically tenuous but improving upon admission to [facility], requiring hemodynamic support with norepinephrine and vasopressin at time of admission along with mechanical support with Impella device. Reassuringly, he demonstrates decreasing pressor requirements since admission to [facility], with epinephrine completely weaned. He does [...] Bernardo Amos MD Internal Medicine, PGY-3 Cardiology, [facility] 07/29/24 3:14 PM Cardiology Attending Note [...] MD, FACP, FACC Section of Cardiovascular Medicine [facility] Landscape Supervisorbench repair technician [employer] [facility] This patient meets or has met medical [...] to the planned procedure. Hand Hygiene: The priming mixture carrier did perform hand hygiene prior to arterial [...] ease. Good wave form. Ivan Hernandez MD Osteopathy Doctor Associated attestation - Rolando Yeh MD - [...] an outpatient cardiac rehabilitation program at [facility] was discussed. Patient agrees to [...] MEDICARE Payor: AAR MANAGED MEDICARE / [facility] / [...] of Discharge: 08/04/2024 Gaby Wong RN, CM [phone] * Initial Assessments - Char Meza OT - 08/03/2024 10:00 AM EST Occupational Therapy Evaluation Patient profile: Korey Montoya is a 74 y.o. male admitted on 07/29/2024 w/ PMH of hypertension, HLD, and BPH who presents for chief concern of chest pain after being found to have ST elevations onEKG. Patient transferred via air ambulance to [facility] on 07/29 for LHC and LOW to LAD for 100% occlusion. Past Medical History: Diagnosis Date ADHD HLD (hyperlipidemia) HTN (hypertension) Tremor Past Surgical History: Procedure Laterality Date HAND SURGERY PRO COLONOSCOPY, REMV LESN, SNARE N/A 08/30/2023 COLONOSCOPY, POLYPECTOMY, REMOVAL LESION BY SNARE (WRVU 4.57) performed by Brandan Mcgovern MD [facility] ENDOSCOPY Social History: Patient lives [...] evaluation only Total Minutes, Occupational Therapy: 14 ([id number] (evaluation)) 2017 OT Evaluation Code Rationale: Diagnosis [...] and measurable assessment of functional outcome. Pager: [phone] Char Meza OT 08/03/2024 Occupational Therapy Rehabilitation [...] (Interventions Implemented as Appropriate) Flowsheets (Taken 08/01/2024 2331) Outcome Summary: A+O, no pain. NSR. MAP [...] Procedure Note: Patient Name: Korey Montoya : [id number] MR#: [id number] Case Date: 07/31/2024 Golf Course Starter: Surgeons and Role: * Maldonado Luis MD - Primary * Quniten Charles PA - Physician Hot Box Operator Preoperative diagnosis: shock, impella Postoperative diagnosis: * same * Procedure(s) performed: Impella removal form right HOT DOG VENDER Access: Right HOT DOG VENDER A time-out was conducted prior to the [...] surrogate would be surrogate decision maker per [place] surrogate decision making law. (Only good for 180 days) Any patient receiving care in [place] must abide by [place] law. The hierarchy for surrogate decision making [...] In the past 12 months has the [employer], [employer], or water [employer] threatened to shut off services in your [...] Mailing Address: [address] [place] [address] Physical Address: [address] [place], [place] Social & Family Supports: All names [...] points: Addiction likely Health/Prescription Coverage: Primary Insurance: [facility] [employer] MEDICARE Payor: [facility] MEDICARE / Plan: AARP RPPO MANAGED MEDICARE COMPLETE / Product Type: *No Product type* / Secondary Insurance: N/A ; Prescription Coverage: Yes Preferred Pharmacy: [address] [address] [place] Status: Patient is a : No Primary Care Provider confirmed: Alexia Mtz, SUPERVISOR CELLARS [phone] Patient/Caregiver Goals of Treatment: return home Potential [...] Catheterization) Goal: Stable Heart Rate and Rhythm 07/30/2024 05 by Chase Castro RN Outcome: [...] 07/29/2024 6:25 PM EST Pt arrived from equipment operator/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 CXR and EKG completed. Impella [...] Procedure Note: Patient Name: Korey Montoya : [id number] MR#: [id number] Case Date: 07/29/2024 Golf Course Starter: Surgeons and Role: * Vahe Marvin MD - Primary * Susannah Watts PA - Physician Hot Box Operator Preoperative diagnosis: STEMI Postoperative diagnosis: * STEMI, LAD Artery * * Cardiogenic Shock * Procedure(s) performed: [facility] Coronary angiogram Stent insertion coronary IVUS coronary Venous line insert RH [place] Colette Catheter Vascular closure device Ventricular assist [...] x 22 mm to 14 deonna JEISON [place] with LIZ 3 flow. Residual distal disease at distal stent, overlapping distal stent was inserted with 3.0 x 8 mm JEISON [place]. Systolic's in the 80's sustained. Patient re [...] 9:30 AM EST Appointment [place] [address] Mushtaq Murphy APRN 10/31/2024 11:00 AM EST Office Visit Cardiology at [address] [phone] Mushtaq Murphy, FREDRICK Scheduled Orders Name Type [...] - 0.40 x10(3)/mc L 08/04/2024 6:39 AM EST [facility] Basophil % 0.4 % 08/04/2024 [...] ORDERABLE S [facility] [place] [address] * Magnesium (08/04/2024 6:08 AM EST) Pathologist [facility] Magnesium 0.85 0.69 - 1.07 mMol/L 08/04/2024 7:07 AM [facility] Blood VENOUS BLOOD SPECIMEN / Unknown Venipuncture / Unknown 08/04/2024 6:08 AM EST 08/04/2024 6:19 AM EST Bridgette Stauffer MD CHEMISTRY ORDERABLES [facility] [place] [address] * Basic Metabolic Panel (08/04/2024 6:08 AM [...] CHEMISTRY ORDERABLES [facility] [place] [id number] * (ABNORMAL) CBC (with Diff) (08/03/2024 5:16 [...] ORDERABLE S [facility] [place] [address] * Magnesium (08/03/2024 5:16 AM EST) Pathologist [facility] Magnesium 0.89 0.69 - 1.07 mMol/L 08/03/2024 5:56 AM [facility] Blood VENOUS BLOOD SPECIMEN / Unknown Venipuncture / Unknown 08/03/2024 5:16 AM EST 08/03/2024 5:23 AM EST Bridgette Stauffer MD CHEMISTRY ORDERABLES [facility] [place] [address] * (ABNORMAL) Basic Metabolic Panel (08/03/2024 5:16 AM EST) Pathologist [facility] Glucose 98 65 - 199 mg/dL 08/03/2024 [...] 92 mL/min/1. 73 m?? 08/03/2024 5:56 AM EST [facility] Stauffer MD CHEMISTRY ORDERABLES Performing Organization Address [facility]/ZIP Co de Phone Number [facility] [place] [address] * POC, GLUCOSE (08/02/2024 7:47 AM EST) [...] O RDERABLES [facility] [place] [address] * (ABNORMAL) CBC (with Diff) (08/02/2024 4:20 AM EST) White Blood Cell 8.51 4.00 - 9.50 x10(3)/mc L 08/02/2024 4:50 AM EST [facility] Red Blood Cell 4.41(L) 4.58 - 5.54 x10(6)/mc L 08/02/2024 4:50 AM [facility] Hemoglobin 12.2(L) 13.7 - 16.5 g/dL 08/02/2024 4:50 AM [facility] Hematocrit 35.8(L) 40.5 - 48.5 [...] ORDERABLE S [facility] [place] [address] * Magnesium (08/02/2024 4:20 AM EST) Magnesium 0.79 0.69 - 1.07 mMol/L 08/02/2024 5:06 AM [facility] Blood VENOUS BLOOD SPECIMEN / Unknown Venipuncture / Unknown 08/02/2024 4:20 AM EST 08/02/2024 4:37 AM EST Bridgette Stauffer MD CHEMISTRY ORDERABLES [facility] [place] [address] * (ABNORMAL) Basic Metabolic Panel (08/02/2024 4:20 [...] Stauffer MD CHEMISTRY ORDERABLES Performing Organization Address [facility]/ZIP Co de Phone Number [facility] [place] [address] * Potassium (08/01/2024 8:39 PM EST) [facility] Potassium 4.0 3.5 - 5.0 mMol/L 08/01/2024 9:21 PM EST [facility] Blood VENOUS BLOOD SPECIMEN / Unknown Venipuncture / Unknown 08/01/2024 8:39 PM EST 08/01/2024 8:51 PM EST Aubree Silverio MD CHEMISTRY ORDERABL ES Performing Organization Address [facility] Co de Phone Number [facility] [place] [address] * POC, GLUCOSE (08/01/2024 8:35 PM EST) Glucometer, POC 112 65 - 199 mg/dL 08/01/2024 8:36 PM EST [facility] Comment:Supplemental ranges: <140 mg/dL before meals <180 mg/dL all other times of the day. Blood CAPILLARY BLOOD / Unknown 08/01/2024 8:35 PM EST 08/01/2024 8:36 PM EST Krystal Parker MD POINT OF CARE TEST O RDERABLES Performing Organization Address [facility] Co de Phone Number [facility] [place] [address] * POC, GLUCOSE (08/01/2024 4:55 PM EST) Glucometer, POC 99 65 - 199 mg/dL 08/01/2024 4:56 PM EST [facility] Comment:Supplemental ranges: <140 mg/dL before meals <180 mg/dL all other times of the day. Blood CAPILLARY BLOOD / Unknown 08/01/2024 4:55 PM EST 08/01/2024 4:56 PM EST Krystal Parker MD POINT OF CARE TEST O JOSH Performing Organization Address City/[facility] Co de Phone Number [facility] [place] [address] * POC, GLUCOSE (08/01/2024 12:42 PM EST) Glucometer, POC 130 65 - 199 mg/dL 08/01/2024 12:43 PM EST [facility] Comment:Supplemental ranges: <140 mg/dL before meals <180 mg/dL all other times of the day. Blood CAPILLARY BLOOD / Unknown 08/01/2024 12:42 PM EST 08/01/2024 12:43 PM EST Krystal Parker MD POINT OF CARE TEST O JOSH Performing Organization Address [facility] Co de Phone Number [facility] [place] [address] * (ABNORMAL) Cooximetry, POC (08/01/2024 10:45 AM EST) pO2, Coox 32 mmHg 08/01/2024 10:48 AM EST [facility] Hemoglobin, Coox 12.9(L) 13.7 - 16.5 g/dL 08/01/2024 10:48 AM EST [facility] Oxyhemoglobin, Coox 66.7 % 08/01/2024 10:48 AM EST [facility] Carboxyhemoglo bin, Coox 1.1 % [...] CARE TEST O JOSH Performing Organization Address [facility] Co de Phone Number [facility] [place] [address] * Potassium (08/01/2024 8:20 AM EST) Pathologist [facility] Potassium 4.0 3.5 - 5.0 mMol/L 08/01/2024 10:17 AM EST [facility] Blood ARTERIAL BLOOD / Unknown Venipuncture / Unknown 08/01/2024 8:20 AM EST 08/01/2024 8:30 AM EST Aubree Silverio MD CHEMISTRY ORDERABL ES Performing Organization Address [facility] de Phone Number [facility] [place] [address] * POC, GLUCOSE (08/01/2024 7:44 AM EST) Glucometer, POC 86 65 - 199 mg/dL 08/01/2024 7:44 AM EST [facility] Comment:Supplemental ranges: <140 mg/dL before meals <180 mg/dL all other times of the day. Blood CAPILLARY BLOOD / Unknown 08/01/2024 7:44 AM EST 08/01/2024 7:44 AM EST Krystal Parker MD POINT OF CARE TEST O RDERASHAY Performing Organization Address [facility] Co de Phone Number [facility] [place] [address] * (ABNORMAL) CBC (with Diff) (08/01/2024 4:18 AM EST) White Blood Cell 8.51 4.00 - 9.50 x10(3)/mc L 08/01/2024 4:53 AM [facility] Red Blood Cell 4.12(L) 4.58 [...] ORDERABLE S [facility] [place] [address] * Magnesium (08/01/2024 4:18 AM EST) Magnesium 0.74 0.69 - 1.07 mMol/L 08/01/2024 5:00 AM [facility] Blood VENOUS BLOOD SPECIMEN / Unknown Venipuncture / Unknown 08/01/2024 4:18 AM EST 08/01/2024 4:29 AM EST Bridgette Stauffer MD CHEMISTRY ORDERABLES [facility] [place] [address] * (ABNORMAL) Basic Metabolic Panel (08/01/2024 4:18 [...] Stauffer MD CHEMISTRY ORDERABLES Performing Organization Address [facility] Co de Phone Number [facility] [place] [address] * POC, GLUCOSE (07/31/2024 8:41 PM EST) [facility] Signature Glucometer, POC 73 65 - 199 mg/dL 07/31/2024 8:41 PM EST [facility] Comment:Supplemental ranges: <140 mg/dL before meals <180 mg/dL all other times of the day. Blood CAPILLARY BLOOD / Unknown 07/31/2024 8:41 PM EST 07/31/2024 8:41 PM EST Krystal Parker MD POINT OF CARE TEST O RDERABLES Performing Organization Address [facility] Co de Phone Number [facility] [place] [address] * CARDIAC CATHETERIZATION (07/31/2024 5:53 PM EST) Anatomical Region Laterality Modality Other Narrative 08/01/2024 12:37 PM EST ?[facility] ? Cardiac Catheterization/Intervention Report ? Patient Name: Korey Montoya. ? Procedure Date: 07/31/2024 ? A #: [id number] ? Primary Physician: Janelle, Maldonado T ? Case #: [id number] ? File Name: [id number] ? Catheterization Order Number: [id number] ? [facility] ?[facility] ? Final Report [place], [place] ? Patient Name: ? Korey P. Montoya ?ID#: ?[id number] ? : ?1950 ? Procedure Date: ? [...] ? Comments: ?Impella removed from the right HOT DOG VENDER with deployment of Perclose and ?Angioseal. ??Good [...] Procedure Note Maldonado Luis MD - 08/01/2024 [facility] Cardiac Catheterization/Intervention Report Patient Name: Korey Montoya Procedure Date: 07/31/2024 A #: [id number] Primary Physician: Maldonado Luis Case #: [id number] File Name: [id number] Catheterization Order Number: [id number] [facility] FinalReport [place], [place] Patient Name: Korey Montoya ID#:[id number] :1950 Procedure Date: July 31, 2024 Case [...] was designated as ASA Class IV. The [facility] clinical frailtyscale is 4: Vulnerable. [...] procedures. Comments: Impella removed from the right HOT DOG VENDER with deployment of Perclose and Angioseal. Good [...] * POC, GLUCOSE (07/31/2024 11:04 AM EST) [facility] Glucometer, POC 82 65 - 199 mg/dL 07/31/2024 11:04 AM EST [facility] Comment:Supplemental ranges: <140 mg/dL before meals <180 mg/dL all other times of the day. Blood CAPILLARY BLOOD / Unknown 07/31/2024 11:04 AM EST 07/31/2024 11:04 AM EST Krystal Parker MD POINT OF CARE TEST O RDERABLES [facility] [place] [address] * (ABNORMAL) Blood Gas, Arterial POC (07/31/2024 8:29 AM EST) Pathologist [facility] pH, Arterial 7.48(H) 7.35 - 7.45 07/31/2024 8:30 AM EST [facility] PCO2, Arterial 29(L) 35 - 45 mmHg 07/31/2024 8:30 AM EST [facility] PO2, Arterial 71(L) 85 - 104 mmHg 07/31/2024 8:30 AM [facility] Bicarbonate, Arterial 20.6 20.0 - 26.0 mmol/L 07/31/2024 8:30 AM [facility] Base Excess, Arterial -3.0 -3.0 [...] - 199 mg/dL 07/31/2024 8:30 AM EST [facility] Comment:Glucose Concentratio n >=200 mg/dL plus symptoms is consistent with Diabetes Mellitus. Blood ARTERIAL BLOOD / Unknown 07/31/2024 8:29 AM EST 07/31/2024 8:30 AM EST Krystal Parker MD POINT OF CARE TEST O JOSH Performing Organization Address City/[facility] Co de Phone Number [facility] [place] [address] * POC, GLUCOSE (07/31/2024 7:47 AM EST) [facility] Signature Glucometer, POC 82 65 - 199 mg/dL 07/31/2024 7:53 AM EST [facility] Comment:Supplemental ranges: <140 mg/dL before meals <180 mg/dL all other times of the day. Blood CAPILLARY BLOOD / Unknown 07/31/2024 7:47 AM EST 07/31/2024 7:53 AM EST Krystal Parker MD POINT OF CARE TEST O JOSH Performing Organization Address [facility] Co de Phone Number [facility] [place] [address] * (ABNORMAL) CBC (with Diff) (07/31/2024 1:08 AM EST) White Blood Cell 10.25(H) 4.00 - 9.50 x10(3)/mc L 07/31/2024 1:28 AM EST [facility] Red Blood Cell 4.13(L) 4.58 - 5.54 x10(6)/mc L 07/31/2024 1:28 AM EST [facility] Hemoglobin 11.2(L) 13.7 - 16.5 g/dL 07/31/2024 1:28 AM EST [facility] Hematocrit 33.9(L) 40.5 - 48.5 [...] - 0.90 x10(3)/mc L 07/31/2024 1:28 AM EST [facility] Eos % 0.1 % 07/31/2024 1:28 AM [facility] Eos Absolute <0.04 0.00 - 0.40 x10(3)/mc L 07/31/2024 1:28 AM EST [facility] Basophil % 0.3 % 07/31/2024 1:28 AM [facility] Baso Absolute <0.04 0.00 - 0.10 x10(3)/mc L 07/31/2024 1:28 AM [facility] Immature Gran % 0.2 % 1:28 AM [facility] Immature Gran Absolute <0.04 0.00 - 0.04 x10(3)/mc L 07/31/2024 1:28 AM [facility] Blood VENOUS BLOOD SPECIMEN / Unknown Venipuncture / Unknown 07/31/2024 1:08 AM EST 07/31/2024 1:18 AM EST Bridgette Stauffer MD HEMATOLOGY ORDERABLE S [facility] [place] [address] * Magnesium (07/31/2024 1:08 AM EST) Magnesium 0.89 0.69 - 1.07 mMol/L 07/31/2024 1:46 AM EST [facility] Blood VENOUS BLOOD SPECIMEN / Unknown Venipuncture / Unknown 07/31/2024 1:08 AM EST 07/31/2024 1:18 AM EST Bridgette Stauffer MD CHEMISTRY ORDERABLES [facility] [place] [address] * (ABNORMAL) Basic Metabolic Panel (07/31/2024 1:08 AM EST) Glucose 97 65 - 199 mg/dL 07/31/2024 1:46 AM [facility] Comment:Glucose Concentratio n >=200 mg/dL plus symptoms is consistent with Diabetes Mellitus. Blood Urea Nitrogen 11 10 - 20 mg/dL 07/31/2024 1:46 AM [facility] Creatinine 0.96 0.80 - 1.50 mg/dL 07/31/2024 1:46 AM [facility] Sodium 140 135 - 145 mMol/L 07/31/2024 1:46 AM [facility] Potassium 4.1 3.5 - 5.0 mMol/L 07/31/2024 1:46 AM [facility] Chloride 110(H) 98 - 107 [...] Stauffer MD CHEMISTRY ORDERABLES Performing Organization Address [facility] Co de Phone Number [facility] [place] [address] * (ABNORMAL) Hepatic Function Panel (07/31/2024 1:08 [...] Parker MD CHEMISTRY ORDERABLES Performing Organization Address City/[facility]/ZIP Co de Phone Number [facility] [place] [address] * POC, GLUCOSE (07/30/2024 8:03 PM EST) Glucometer, POC 86 65 - 199 mg/dL 07/30/2024 8:03 PM [facility] Comment:Supplemental ranges: <140 mg/dL before meals <180 mg/dL all other times of the day. Blood CAPILLARY BLOOD / Unknown 07/30/2024 8:03 PM EST 07/30/2024 8:03 PM EST Krystal Parker MD POINT OF CARE TEST O RDERABLES Performing Organization Address City/[facility]/ZIP Co de Phone Number [facility] [place] [address] * Potassium (07/30/2024 8:03 PM EST) Potassium 3.8 3.5 - 5.0 mMol/L 07/30/2024 9:13 PM EST [facility] Blood VENOUS BLOOD SPECIMEN / Unknown Venipuncture / Unknown 07/30/2024 8:03 PM EST 07/30/2024 8:22 PM EST Aubree Silverio MD CHEMISTRY ORDERABL ES Performing Organization Address [facility] Co de Phone Number [facility] [place] [address] * POC, GLUCOSE (07/30/2024 6:23 PM EST) Glucometer, POC 93 65 - 199 mg/dL 07/30/2024 6:24 PM EST [facility] Comment:Supplemental ranges: <140 mg/dL before meals <180 mg/dL all other times of the day. Blood CAPILLARY BLOOD / Unknown 07/30/2024 6:23 PM EST 07/30/2024 6:24 PM EST Krystal Parker MD POINT OF CARE TEST O RDERABLES Performing Organization Address City/[facility]/ZIP Co de Phone Number [facility] [place] [address] * POC, GLUCOSE (07/30/2024 5:08 PM EST) Glucometer, POC 78 65 - 199 mg/dL 07/30/2024 5:08 PM EST [facility] Comment:Supplemental ranges: <140 mg/dL before meals <180 mg/dL all other times of the day. Blood CAPILLARY BLOOD / Unknown 07/30/2024 5:08 PM EST 07/30/2024 5:08 PM EST Krystal Parker MD POINT OF CARE TEST O RDERABLES Performing Organization Address [facility] Co de Phone Number [facility] [place] [address] * (ABNORMAL) Phosphorus (07/30/2024 3:08 PM EST) Phosphorus 2.1(L) 2.5 - 4.5 mg/dL 07/30/2024 3:58 PM EST [facility] Blood VENOUS BLOOD SPECIMEN / Unknown Venipuncture / Unknown 07/30/2024 3:08 PM EST 07/30/2024 3:12 PM EST Aubree Silverio MD CHEMISTRY ORDERABL ES Performing Organization Address [facility] Co de Phone Number [facility] [place] [address] * Magnesium (07/30/2024 3:08 PM EST) Magnesium 0.90 0.69 - 1.07 mMol/L 07/30/2024 3:58 PM EST [facility] Blood VENOUS BLOOD SPECIMEN / Unknown Venipuncture / Unknown 07/30/2024 3:08 PM EST 07/30/2024 3:12 PM EST Aubree Silverio MD CHEMISTRY ORDERABL ES Performing Organization Address [facility] Co de Phone Number [facility] [place] [address] * (ABNORMAL) Basic Metabolic Panel (07/30/2024 3:08 [...] 135 - 145 mMol/L 07/30/2024 4:17 PM [facility] Potassium 3.4(L) 3.5 - 5.0 mMol/L 07/30/2024 4:17 PM EST [facility] Chloride 109(H) 98 - 107 [...] EST Aubree Silverio MD CHEMISTRY ORDERABL ES [facility] [place] [address] * ECHO LMTD W CONTRAST W LMTD SPEC DOPP COLOR DOPP (07/30/2024 11:42 AM EST) Anatomical Region Laterality Modality Cardiac Other 07/30/2024 10:2 2 AM EST Narrative 07/30/2024 12:34 PM EST [address] [place] [id number] ? Echocardiogram Report Name: KOREY MONTOYA ? Study Date: 07/30/2024 10:22 AMBP: 124/66 mmHg : 1950 ? Height: 168 cm ? Account: [id number] Age: 74 yrs ? Weight: 65 kg Gender: Male ?BSA: 1.7 m2 Ordering Physician: Aubree Silverio MD Referring Physician: CHAPARRO FERRERA Performed By: OMERO Millan Reason For Study: ST elevation myocardial infarction involving left anterior descending (LAD) coronary artery Interpreting Fellow: Ivan Hernandez. Exam Location: [facility]. Interpretation Summary Left ventricle is severely [...] Compared to the overnight study by the mental retardation nurse fellow the impella position is stable. 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 Procedure Limited - 86405. Image enhancement Definity was used for both [...] Note Kathleen Banda MD - 07/30/2024 [address] [place] [address] Echocardiogram Report Name: KOREY MONTOYA Study Date: 410:22 AMBP: 124/66 mmHg : 1950 Height: 168 cm Account: [id number] Age: 74 yrs Weight: 65 kg Gender: Male BSA: 1.7 m2 Ordering Physician: Aubree Silverio MD Referring Physician: CHAPARRO FERRERA Performed By: OMERO Millan Reason For Study: ST elevation myocardial infarction involving leftanterior descending (LAD) coronary artery Interpreting Fellow: Ivan Hernandez. Exam Location: [facility]. Interpretation Summary Left ventricle is severely [...] Compared to the overnight study by the mental retardation nurse fellow the impella positionis stable. The global left ventricular systolic function has improvedpredominantly via recruitment outside the LAD territory which remains akinetic. Procedure Limited - 73724. Image enhancement Definity was used for both [...] * POC, GLUCOSE (07/30/2024 11:17 AM EST) Pathologist [facility] Glucometer, POC 97 65 - 199 mg/dL 07/30/2024 11:17 AM EST [facility] Comment:Supplemental ranges: <140 mg/dL before meals <180 mg/dL all other times of the day. Blood CAPILLARY BLOOD / Unknown 07/30/2024 11:17 AM EST 07/30/2024 11:17 AM EST Aubree Silverio MD POINT OF CARE TEST ORDERABLES [facility] [place] [address] * (ABNORMAL) Blood Gas, Arterial POC (07/30/2024 8:16 AM EST) pH, Arterial 7.44 7.35 - 7.45 07/30/2024 8:17 AM EST [facility] PCO2, Arterial 29(L) 35 - 45 mmHg 07/30/2024 8:17 AM [facility] PO2, Arterial 109(H) 85 - 104 mmHg 07/30/2024 8:17 AM [facility] Bicarbonate, Arterial 19.4(L) 20.0 - [...] 1.15 - 1.33 mmol/L 07/30/2024 8:17 AM EST [facility] Blood ARTERIAL BLOOD / Unknown 07/30/2024 8:16 AM EST 07/30/2024 8:17 AM EST Aubree Silverio MD POINT OF CARE TEST ORDERABLES [facility] [place] [address] * (ABNORMAL) Troponin - Single (07/30/2024 8:09 [...] can be found in the [facility] Test Catalog Troponin - [email or web address]/catalogs/565/files/34673 Reference: Fourth Edwards Definition of Myocardial Infarction. Journal of the [employer] College of [employer]iology 2018;72:2564-0615 Blood VENOUS BLOOD SPECIMEN / Unknown Venipuncture / Unknown 07/30/2024 8:09 AM EST 07/30/2024 8:26 AM EST Aubree Silverio MD CHEMISTRY ORDERABL ES Performing Organization Address City/[facility]/ZIP Co de Phone Number [facility] [place] [address] * POC, GLUCOSE (07/30/2024 7:40 AM EST) [facility] Glucometer, POC 111 65 - 199 mg/dL 07/30/2024 7:40 AM EST [facility] Comment:Supplemental ranges: <140 mg/dL before meals <180 mg/dL all other times of the day. Blood CAPILLARY BLOOD / Unknown 07/30/2024 7:40 AM EST 07/30/2024 7:40 AM EST Aubree Silverio MD POINT OF CARE TEST ORDERABLES Performing Organization Address [facility] Co de Phone Number [facility] [place] [address] * (ABNORMAL) CBC (with Diff) (07/30/2024 2:11 AM EST) [facility] White Blood Cell 11.25(H) 4.00 - 9.50 [...] Basophil % 0.2 % 07/30/2024 2:33 AM EST [facility] Baso Absolute <0.04 0.00 - 0.10 x10(3)/mc L 07/30/2024 2:33 AM EST [facility] Immature Gran % 0.4 % 2:33 AM EST [facility] Immature Gran Absolute 0.05(H) 0.00 - 0.04 x10(3)/mc L 07/30/2024 2:33 AM EST [facility] Blood VENOUS BLOOD SPECIMEN / Unknown Venipuncture / Unknown 07/30/2024 2:11 AM EST 07/30/2024 2:22 AM EST Bridgette Stauffer MD HEMATOLOGY ORDERABLE S [facility] [place] [address] * Magnesium (07/30/2024 2:11 AM EST) Pathologist [facility] Magnesium 1.01 0.69 - 1.07 mMol/L 07/30/2024 2:51 AM EST [facility] Blood VENOUS BLOOD SPECIMEN / Unknown Venipuncture / Unknown 07/30/2024 2:11 AM EST 07/30/2024 2:22 AM EST Bridgette Stauffer MD CHEMISTRY ORDERABLES [facility] [place] [address] * (ABNORMAL) Basic Metabolic Panel (07/30/2024 2:11 AM EST) Glucose 190 65 - 199 mg/dL 07/30/2024 2:51 AM EST [facility] Comment:Glucose Concentratio n >=200 mg/dL plus symptoms is consistent with Diabetes Mellitus. Blood Urea Nitrogen 15 10 - 20 mg/dL 07/30/2024 2:51 AM EST [facility] Creatinine 0.88 0.80 - 1.50 mg/dL 07/30/2024 2:51 AM EST [facility] Sodium 135 135 - 145 mMol/L 07/30/2024 2:51 AM EST [facility] Potassium 4.9 3.5 - 5.0 mMol/L 07/30/2024 2:51 AM [facility] Chloride 105 98 - 107 mMol/L 07/30/2024 2:51 AM [facility] Carbon Dioxide 19(L) 22 - 31 mMol/L 07/30/2024 2:51 AM EST [facility] Anion [...] CHEMISTRY ORDERABLES [facility] [place] [address] * (ABNORMAL) Cooximetry, POC (07/30/2024 1:00 AM [...] OF CARE TEST ORDERABLES Performing Organization Address City/State/[facility] Co de Phone Number [facility] [place] [address] * (ABNORMAL) Blood Gas, Arterial POC (07/30/2024 [...] TEST ORDERABLES [facility] [place] [address] * (ABNORMAL) Troponin - Single (07/29/2024 10:31 [...] can be found in the [facility] Test Catalog Troponin - [email or web address].[email or web address]/catalogs/565/files/84610 Reference: Fourth Edwards Definition of Myocardial Infarction. Journal of the [employer] College [employer]iology 2018;72:1725-0215 Blood VENOUS BLOOD SPECIMEN / Unknown Venipuncture / Unknown 07/29/2024 10:31 PM EST 07/29/2024 10:36 PM EST Yrn Ward MD CHEMISTRY ORDERABL ES [facility] [place] [address] * Potassium (07/29/2024 8:11 PM EST) Pathologist [facility] Potassium 4.1 3.5 - 5.0 mMol/L 07/29/2024 8:52 PM EST [facility] Blood VENOUS BLOOD SPECIMEN / Unknown Venipuncture / Unknown 07/29/2024 8:11 PM EST 07/29/2024 8:16 PM EST Aubree Silverio MD CHEMISTRY ORDERABL ES Performing Organization Address [facility]/ZIP Co de Phone Number [facility] [place] [address] * (ABNORMAL) Troponin - Single (07/29/2024 8:11 [...] can be found in the [facility] Test Catalog Troponin - https://[email or web address]/catalogs/565/files/26088 Reference: Fourth Edwards Definition of Myocardial Infarction. Journal of the [place] College of Cardiology 2018;72:8364-0300 Blood VENOUS BLOOD SPECIMEN / Unknown Venipuncture / Unknown 07/29/2024 8:11 PM EST 07/29/2024 8:16 PM EST Aubree Silverio MD CHEMISTRY ORDERABL ES [facility] [place] [address] * (ABNORMAL) Phosphorus (07/29/2024 8:11 PM EST) Phosphorus 2.1(L) 2.5 - 4.5 mg/dL 07/29/2024 8:52 PM EST [facility] Blood VENOUS BLOOD SPECIMEN / Unknown Venipuncture / Unknown 07/29/2024 8:11 PM EST 07/29/2024 8:16 PM EST Aubree Silverio MD CHEMISTRY ORDERABL ES Performing Organization Address [facility] Co de Phone Number [facility] [place] [address] * POC, GLUCOSE (07/29/2024 8:09 PM EST) [facility] Signature Glucometer, POC 142 65 - 199 mg/dL 07/29/2024 8:09 PM EST [facility] Comment:Supplemental ranges: <140 mg/dL before meals <180 mg/dL all other times of the day. Blood CAPILLARY BLOOD / Unknown 07/29/2024 8:09 PM EST 07/29/2024 8:09 PM EST Aubree Silverio MD POINT OF CARE TEST ORDERABLES Performing Organization Address [facility] Co de Phone Number [facility] [place] [address] * ABORH RECHECK (07/29/2024 6:43 PM EST) ABORH Recheck AB POSITIVE 07/29/2024 10:13 PM EST [facility] Blood VENOUS BLOOD SPECIMEN / Unknown Venipuncture / Unknown 07/29/2024 6:43 PM EST 07/29/2024 7:15 PM EST Aubree Silverio MD BLOOD BANK LAB ORD ERABLES Performing Organization Address City/[facility]/ZIP Co de Phone Number [facility] [place] [address] * POC, GLUCOSE (07/29/2024 5:57 PM EST) [facility] Glucometer, POC 166 65 - 199 mg/dL 07/29/2024 5:57 PM EST [facility] Comment:Supplemental ranges: <140 mg/dL before meals <180 mg/dL all other times of the day. Blood CAPILLARY BLOOD / Unknown 07/29/2024 5:57 PM EST 07/29/2024 5:57 PM EST Aubree Silverio MD POINT OF CARE TEST ORDERABLES [facility] [place] [address] * Type and screen ([facility]/CGP/MAGALIE) (07/29/2024 5:56 PM EST) [facility] ABORH Type AB POSITIVE 07/29/2024 9:44 PM EST [facility] PATIENT HISTORY Not Found 07/29/2024 9:44 PM EST [facility] Expires at [id number] on: 08/01/2024 07/29/2024 9:44 PM EST [facility] ANTIBODY SCREEN AUTOMATED Negative 07/29/2024 9:44 PM EST [facility] T&S only valid at [facility] 07/29/2024 9:44 PM EST [facility] Blood VENOUS BLOOD SPECIMEN / Unknown Venipuncture / Unknown 07/29/2024 5:56 PM EST 07/29/2024 6:07 PM EST Narrative [facility] - 07/29/2024 9:44 PM EST This Type and Screen result is only valid at the [facility] Aubree Silverio MD BLOOD BANK LAB ORD ERABLES [facility] [place] [address] * (ABNORMAL) Troponin - Single (07/29/2024 4:52 PM EST) [facility] Troponin-T, High Sensitivity >10,000(H ) <=22 ng/L [...] can be found in the [facility] Test Catalog Troponin - https://[facility]'s[facility].testcatalog.org/catalogs/565/files/81598 Reference: Fourth Edwards Definition of Myocardial Infarction. Journal of the [place] College of Cardiology 2018;72:8840-2126 Blood VENOUS BLOOD SPECIMEN / Unknown Venipuncture / Unknown 07/29/2024 4:52 PM EST 07/29/2024 4:57 PM EST Aubree Silverio MD CHEMISTRY ORDERABL ES [facility] [place] [address] * EKG 12 Lead (07/29/2024 4:21 PM EST) Ventricular rate 72 BPM MUSE SYSTEM Atrial Rate 72 BPM MUSE SYSTEM P-R Interval 168 ms MUSE SYSTEM QRS Duration 82 ms MUSE SYSTEM Q-T Interval 392 ms MUSE SYSTEM QTC Calculated (Bezet) 429 ms MUSE SYSTEM Calculated P [place] 71 degrees MUSE SYSTEM Calculated R [place] 77 degrees MUSE SYSTEM Calculated T [place] 28 degrees MUSE SYSTEM INTERPRETATION Sinus rhythm [...] AM EST Aubree Silverio MD ECG ORDERABLES MUSE SYSTEM * [...] TEST ORDERABLES [facility] [place] [address] * POC, GLUCOSE (07/29/2024 4:19 PM EST) Glucometer, POC 185 65 - 199 mg/dL 07/29/2024 4:19 PM [facility] Comment:Supplemental ranges: <140 mg/dL before meals <180 mg/dL all other times of the day. Blood CAPILLARY BLOOD / Unknown 07/29/2024 4:19 PM EST 07/29/2024 4:19 PM EST Aubree Silverio MD POINT OF CARE TEST ORDERABLES Performing Organization Address [facility] Co de Phone Number [facility] [place] [address] * Blood culture (07/29/2024 4:08 PM EST) Blood Culture No growth at 120 hours 08/03/2024 5:01 PM EST [facility] Blood VENOUS BLOOD SPECIMEN / Unknown Venipuncture / Unknown 07/29/2024 4:08 PM EST 07/29/2024 4:15 PM EST Aubree Silverio MD MICROBIOLOGY - BLO OD ORDERABLES Performing Organization Address [facility] [place] [address] * Blood culture (07/29/2024 4:08 PM EST) Blood Culture No growth at 120 hours 08/03/2024 5:01 PM EST [facility] Blood VENOUS BLOOD SPECIMEN / Unknown Venipuncture / Unknown 07/29/2024 4:08 PM EST 07/29/2024 4:26 PM EST Aubree Silverio MD MICROBIOLOGY - BLO OD ORDERABLES Performing Organization Address [facility] Co de Phone Number [facility] [place] [address] * XR Chest One View (07/29/2024 2:30 PM EST) WORKSTATION ID [id number] RAD Anatomical Region Laterality Modality Chest N/A [...] questions please contact the health patient care provider that requested your imaging first. ? Electronically signed by: Chris Candelaria MD, [facility] ([phone]), at 07/29/2024 3:21 PM Narrative 07/29/2024 3:21 [...] have questions please contactthe health patient care provider that requested your imaging first. Electronically signed by: Chris Candelaria MD, [facility]([phone]), at 07/29/2024 3:21 PM Vahe Marvin MD IMG DX ORDERABLES * (ABNORMAL) APTT (07/29/2024 2:03 PM EST) Partial Thromboplastin Time >160(HHH) 25 - 37 sec 07/29/2024 2:56 PM EST [facility] Blood VENOUS BLOOD SPECIMEN / Unknown Venipuncture / Unknown 07/29/2024 2:03 PM EST 07/29/2024 2:13 PM EST Vahe Marvin MD HEMATOLOGY ORDERABLE S Performing Organization Address [facility] Co de Phone Number [facility] [place] [address] * (ABNORMAL) Prothrombin Time (07/29/2024 2:03 PM [...] MD HEMATOLOGY ORDERABLE S Performing Organization Address [facility] Co de Phone Number [facility] [place] [address] * CRP, acute inflammation (07/29/2024 2:03 PM EST) C-Reactive Protein <3.0 <=4.9 mg/L 07/29/2024 2:52 PM [facility] Blood VENOUS BLOOD SPECIMEN / Unknown Venipuncture / Unknown 07/29/2024 2:03 PM EST 07/29/2024 2:14 PM EST Vahe Marvin MD CHEMISTRY ORDERABLES [facility] [place] [address] * Lipid Panel (Reflex Direct LDL) (07/29/2024 [...] Marvin MD CHEMISTRY ORDERABLES Performing Organization Address City/[facility]/ZIP Co de Phone Number [facility] [place] [address] * TSH [place] (07/29/2024 2:03 PM EST) Thyroid Stimulating Hormone 0.70 0.27 - 4.20 mcIU/mL 07/29/2024 2:52 PM EST [facility] Blood VENOUS BLOOD SPECIMEN / Unknown Venipuncture / Unknown 07/29/2024 2:03 PM EST 07/29/2024 2:14 PM EST Vahe Marvin MD CHEMISTRY ORDERABLES Performing Organization Address City/[facility]/ZIP Co de Phone Number [facility] [place] [address] * Hemoglobin A1c (07/29/2024 2:03 PM EST) [...] red blood cell turnover may not be passenger service representative of glycemic control. Reference Interval: [...] into estimated average glucose values. ??Diabetes Care 2008:31(8):0734-5685. Additional resources are available on the ADA website (diabetes.org). Vahe Marvin MD CHEMISTRY ORDERABLES [facility] [place] [address] * (ABNORMAL) CBC (with Diff) (07/29/2024 2:03 PM EST) White Blood Cell 19.50(H) 4.00 - 9.50 x10(3)/mc L 07/29/2024 2:18 PM EST [facility] Red Blood Cell 4.81 4.58 - 5.54 x10(6)/mc L 07/29/2024 2:18 PM EST [facility] Hemoglobin 13.1(L) 13.7 - 16.5 [...] 0.10 x10(3)/mc L 07/29/2024 2:18 PM EST [facility] Immature Gran % 0.5 % 2:18 PM EST [facility] Immature Gran Absolute 0.09(H) 0.00 - 0.04 x10(3)/mc L 07/29/2024 2:18 PM EST [facility] Blood VENOUS BLOOD SPECIMEN / Unknown Venipuncture / Unknown 07/29/2024 2:03 PM EST 07/29/2024 2:13 PM EST Vahe Marvin MD HEMATOLOGY ORDERABLE S Performing Organization Address City/[facility]/ZIP Co de Phone Number [facility] [place] [address] * Phosphorus (07/29/2024 2:03 PM EST) Phosphorus 2.5 2.5 - 4.5 mg/dL 07/29/2024 2:52 PM EST [facility] Blood VENOUS BLOOD SPECIMEN / Unknown Venipuncture / Unknown 07/29/2024 2:03 PM EST 07/29/2024 2:14 PM EST Vahe Marvin MD CHEMISTRY ORDERABLES Performing Organization Address City/[facility]/ZIP Co de Phone Number [facility] [place] [address] * Magnesium (07/29/2024 2:03 PM EST) Magnesium 0.70 0.69 - 1.07 mMol/L 07/29/2024 2:52 PM EST [facility] Blood VENOUS BLOOD SPECIMEN / Unknown Venipuncture / Unknown 07/29/2024 2:03 PM EST 07/29/2024 2:14 PM EST Vahe Marvin MD CHEMISTRY ORDERABLES [facility] [place] [address] * (ABNORMAL) Comprehensive metabolic panel (07/29/2024 2:03 [...] Total 0.5 <=1.3 mg/dL 07/29/2024 3:11 PM EST [facility] [...] CHEMISTRY ORDERABLES [facility] [place] [address] * (ABNORMAL) Troponin - Single (07/29/2024 2:03 [...] can be found in the [facility] Test Catalog Troponin - https://[email or web address].org/catalogs/565/files/73073 Reference: Fourth Edwards Definition of Myocardial Infarction. Journal of the [place] College of Cardiology 2018;72:5665-8975 Blood VENOUS BLOOD SPECIMEN / Unknown Venipuncture / Unknown 07/29/2024 2:03 PM EST 07/29/2024 2:14 PM EST Vahe Marvin MD CHEMISTRY ORDERABLES [facility] [place] [address] * (ABNORMAL) Blood Gas, Venous POC (07/29/2024 [...] Venous 0.8 % 07/29/2024 2:02 PM EST [facility] [...] 98 - 107 mmol/L 07/29/2024 2:02 PM [facility] Glucose, Venous 229(H) 65 - [...] O RDERABLES [facility] [place] [address] * CARDIAC CATHETERIZATION (07/29/2024 1:20 PM EST) Anatomical Region Laterality Modality Other Narrative 07/29/2024 2:02 PM EST ?[facility] ? Cardiac Catheterization/Intervention Report ? Patient Name: Korey Montoya. ? Procedure Date: 07/29/2024 ? A #: [id number] ? Primary Physician: Shavonne, Vahe S ? Case #: [id number] ? File Name: [id number] ? Catheterization Order Number: [id number] ? [facility] ?[facility] ? Final Report [place], [place] ? Patient Name: ? Korey P. Montoya ?ID#: ?[id number] ? : ?1950 ? Procedure Date: ? July 29, 2024 ?Case #: ? [id number] ? Room: ? 5 ? Case Physician: [...] procedure was Emergent. The indication for ?the equipment operator/laborer visit is ACS less than or equal [...] 3.5 guiding catheter and a 3.5 Fr [place] [facility] [address] ??20 Mhz using ?Manual pullback. ??Imaging [...] A premounted 3.00 x 22 mm Jeison [place] (LOW) was deployed ? with a maximum [...] ??A premounted 3.00 x 08 mm Jeison [place] (LOW) ? was deployed with a maximum [...] dose administered prior to arrival in the equipment operator/laborer. ?Recommended anti-platelet/anti-thrombotic regimen: ?Start aspirin 81 mg daily now and continue for 12 months then stop. ?Start clopidogrel 75 mg daily now and continue for indefinitely. ?These recommendations are made at the time of the intervention. Patient ?and provider preferences or a changing clinical situation may require ?modification of this regimen. Consult [facility] Interventional Cardiology for ?questions. ?The 1 year [...] able ?to start weaning his inotropes/vasopressors. A [place] Colette catheter was ?placed demonstrating improvement in [...] ventricular assist device insertion, right heart ?catheterization, [place] (flow directed cath) insertion, access site ?angiography, vascular ultrasound, venous line / sheath insert and vascular ?closure device. ? Vahe Marvin M.D. ? Electronically Signed by: Vahe Marvin M.D. ? Report Finalized: 07/29/2024 ??13:55 ? Report Last Ammended: 09/20/2024 ??15:21 ? Procedure Note Vahe Marvin MD - 09/20/2024 [facility] Cardiac Catheterization/Intervention Report Patient Name: Korey Montoya Procedure Date: 07/29/2024 A #: [id number] Primary Physician: Vahe Marvin Case #: [id number] File Name: [id number] Catheterization Order Number: [id number] [facility] FinalReport [place], [place] Patient Name: Korey Montoya ID#:[id number] :1950 Procedure Date: July 29, 2024 Case [...] was designated as ASA Class IV. The [facility] clinical frailtyscale is 4: Vulnerable. Diagnostic Tests: Electrocardiography: EKG was assessed by ECG. EKG was Abnormal. EKG showed STDeviation >= 0.5 mm. Medications Prior to Procedure: Angiotensin II Receptor Elvis and Statin. Indications for Diagnostic Cath: The priority of the diagnostic procedure was Emergent. Theindication for the equipment operator/laborer visit is ACS less than or equal [...] 3.5 guiding catheter and a 3.5 Fr [place] [facility] [place] [address] 20 Mhzusing Manual pullback. Imaging was [...] The priority for the procedure was Emergent.[facility] for the procedure was STEMI-Immediate [...] The lesion was predilated with a 2.00mm [id number] MM balloon with a maximum inflation pressure of 12atmospheres. A premounted 3.00 x 22 mm [place] (LOW) wasdeployed with a maximum inflation pressure [...] atmospheres. A premounted 3.00 x 08 mm [place](LOW) was deployed with a maximum inflation pressure [...] dose administered prior to arrival in the equipment operator/laborer. Recommended anti-platelet/anti-thrombotic regimen: Start aspirin 81 mg daily now and continue for 12 months then stop. Start clopidogrel 75 mg daily now and continue for indefinitely. These recommendations are made at the time of the intervention.Patient and provider preferences or a changing clinical situation mayrequire modification of this regimen. Consult [facility] Interventional Cardiologyfor questions. The 1 year bleeding [...] wereable to start weaning his inotropes/vasopressors. A [place] Colette catheterwas placed demonstrating improvement in his [...] ventricular assist device insertion, right heart catheterization, [place] (flow directed cath) insertion, access site angiography, [...] O RDERABLES [facility] [place] [address] * (ABNORMAL) BLOOD GAS, POC (07/29/2024 12:12 [...] - 26.0 mmol/L 07/30/2024 7:30 AM EST [facility] Carbon Dioxide, POC 21(L) 22 - 31 mmol/L 07/30/2024 7:30 AM EST [facility] Blood VENOUS BLOOD SPECIMEN / Unknown 07/29/2024 12:12 PM EST 07/30/2024 7:30 AM EST Vahe Marvin MD POINT OF CARE TEST O RDERABLES [facility] [place] [address] documented in this encounter Visit Diagnoses Diagnosis [...] Until Tue07/29/24 at 1533, [place]: haylie override aspirin EC tablet 81 mg [...] based off of anti-Xa levels per the [facility] Anti-Xa Algorithm and inform the ECMO attending. [...] (10 mL), Subcutaneous, ONCE, 1 dose, On Tue07/29/24 at 1600, For bedside procedure (a-line placement), STAT Given 07/29/2024 4:12 PM EST 200 mg LORazepam (Ativan) (2 mg/mL) injection 0.5 mg 0.5 mg, Intravenous, ONCE, 1 dose, On Tue07/29/24 at 1745, Routine Given 07/29/2024 5:29 PM [...] 2 g, Intravenous, ONCE, 1 dose, On Tue07/29/24 at 1530, Administer over 120 Minutes Rate/Dose Verify 07/29/2024 4:00 PM EST 25 mL/hr New Bag 07/29/2024 3:36 PM EST 2 g 25 mL/hr magnesium sulfate 2 g in sterile water 50 mL infusion 2 g, Intravenous, ONCE, 1 dose, On Tue07/30/24 at 0145, Administer over 120 Minutes New [...] %) infusion Piggyback 1 dose, Starting on Tue07/29/24 at 1509, Until Tue07/29/24 at 1736, Wan, Silvia R.: cabinet override melatonin tablet 3 mg 3 [...] infusion CONTINUOUS PRN, Starting on 07/29/24 at 1155, Until Tue07/30/24 at 1307, Intra-Operative (Intra-Procedure), Routine Rate/Dose Verify 07/30/2024 8:00 AM EST 75 mL/hr Rate/Dose Verify 07/30/2024 6:00 AM EST 75 mL/h r Rate/Dose Verify 07/30/2024 4:00 AM EST 75 mL/h r ondansetron (pf) (Zofran) (2 mg/mL) injection 4 mg 4 mg, Intravenous, EVERY 8 HOURS PRN, Starting on 07/29/24 at 2223, Until Erna 08/02/24 at 1242, Nausea Given 07/30/2024 7:59 AM [...] must be infused through a [facility] Bag 07/30/2024 10:25 PM EST 20 mEq 100 mL/ hr Bag 07/30/2024 9:17 PM EST 20 mEq 100 mL/hr Bag 07/30/2024 5:25 PM EST 20 mEq [...] must be infused through a [facility] Bag 08/01/2024 5:14 AM EST 20 mEq [...] Until Discontinued, Routine 2024 (Given - Provider: Edourad Wisdom RN) 2202 (Given - Provider: France Guerrero, RN) losartan (Cozaar) tablet 25 mg 25 [...] documented in this encounter Care Teams Supervisor Salvage Relationship Specialty Start Date End Date Alexia Mtz, SUPERVISOR CELLARS [address] [place] [address] PCP - General Family Medicine 07/30/24 documented as of this encounter
--- OUTSIDE RECORDS SUMMARY | 2024-10-03 10:56 | XMS_ITS | Encounter Summary ---
Author Organization [facility] Address [facility] [place] [address] Care Team Providers Care Lead Cargoman Name Role Phone Yoel Artis APRN Primary Care Provider [phone] Encounter Details Date Type Department Care Team (Latest Contact Info) Description 11/30/2023 8:00 AM EDT TH Visit (TeleHealth) [place] [address] Yoel Dangelo APRN [facility] [place] [address] Proctalgia fugax; Constipation, unspecified constipation type Social [...] Bath: Sitz bath's are available in most rustes. They work by improving blood flow and [...] Handout for Patients and Primary Care Providers [facility] Gastrointestinal Motility, Esophageal, and Swallowing Disorders [...] what is the impact? 15-20% of general [place] population has IBS or FD or both 2nd most common cause for lost work days (after common cold) in [place] Estimated $30 billion dollar cost to [place] economy per year These disorders can have [...] to you primary care provider and/or local ductfixing plumber and share this document. Treatment of functional [...] - this approach benefits most patients OTC (hcsg-gio-tipelku) medications can be used for ongoing bothersome symptoms as listed below Your provider (PCP or local Gastroenterology provider or [facility] Gastroenterology provider) may decide to [...] All-Bran psyllium buds, Metamucil, Konsyl, bulk psyllium ([employer] stores and [employer] stores) Specifically we recommend starting Metamucil or [...] but convincing medical evidence is still lacking Oqpb-umf-gmqzdpf supplements including probiotics are not typically evaluated [...] to decrease antibiotic-associated diarrhea and antibiotic-related infections Qgrj-lrc-Lbnqnad Medications for Functional Gut Disorders Based on [...] (GERD) Often a combination of anti-nausea medications (wazy-sib-qiuhpch or prescription) works better thanhigh doses of [...] for misuse/misinterpretation of this information Patient Resources [place] [employer] https://www.gastro.org/practice-guidance/zn-cscmypn-aedpjz/ topic/cxlsmyout-ezlqz-caxuffmf-ibs Badgut.org https://badgut.org/information-centre/j-i-igzpoucdw-topics/ibs/ AboutIBS.org https://www.aboutibs.org/ Uptodate.com https://www.uptodate.com/contents/usoxmgyeg-bvrxp-oelkkrqg-jxpvyn-nma-zbrdnq documented in this encounter Progress Notes * [...] Take by mouth. nitroGLYcerin (NITROLINGUAL) 400 mcg/spray [place], Non-Aerosol 1 spray to anus for proctalgia fugax as needed, not to exceed once daily 12 g 0 No facility-administered medications prior to visit. Allergies: has No Known Allergies. Past Medical History: has a past medical history of ADHD, HLD (hyperlipidemia), HTN (hypertension),and Tremor. Past Surgical History: has a past surgical history that includes Hand surgery and Colonoscopy, Antonieta Pfeiffer ([id number]) (N/A, 08/30/2023). Family History: family history is [...] time of their visit. Yoel Dangelo APRN [facility] [place] [address] [phone] documented in this encounter Miscellaneous Notes * Addendum Note - Yoel Dangelo APRN - 11/30/2023 8:00 AM EDTAddended by: YOEL DANGELO on: 11/30/2023 08:46 AM Modules accepted: Level of Service documented in this encounter Plan of Treatment Upcoming Encounters Date Type Department Care Team (Late st Contact Info) Description 10/31/2024 9:30 AM EST Appointment Non[place] [address] Mushtaq Murphy APRN 10/31/2024 11:00 AM EST Office Visit Cardiology at [address] [address] Mushtaq Murphy APRN documented as of this encounter Visit Diagnoses Diagnosis Proctalgia fugax Anal spasm Constipation, unspecified constipation type documented in this encounter Care Teams Lead Cargoman Relationship Specialty Start Date End Date Yoel Artis APRN [address] [place] [id number] PCP - General Internal Medicine 11/18/22 07/29/24 documented as of this encounter
--- OUTSIDE RECORDS SUMMARY | 2024-10-03 10:56 | XMS_ITS | Encounter Summary ---
[place] [address] Care Team Providers Care Asphalt Plant Worker Name Role Phone Yoel Artis APRN Primary Care Provider [phone] Reason for Referral * Consultation (Routine) - Closed Specialty Diagnoses / Procedures Referred By Theodore muro Referred To Contact Gastroenterology Diagnoses Anal spasm anal spasm Yoel Artis APRN [address] [place] [address] [facility] [place] [address] Referral ID Status Reason Start Date Expiration Date V isits Requested Visits Authorized [id number] Closed Consult, Test & Treat PCP Updated and/or Approved 05/26/2023 05/25/2024 6 6 Encounter Details Date Type Department Care Team (Late st Contact Info) Description 05/26/2023 Transcribe Orders eDH Incoming Referrals [phone] Yoel Artis APRN [address] [place] [address] Anal spasm Social History Tobacco [...] 9:30 AM EST Appointment Non-Invasive [place] [address] Mushtaq Murphy APRN 10/31/2024 11:00 AM EST Office Visit Cardiology at [address] [address] Mushtaq Murphy, MEDICAL CODER Scheduled Referrals Name Type Priority Associated Diagnoses Order Schedule Referral to Gastroenterology Outpatient Referral Routine Anal spasm Ordered: 05/26/2023 documented as of this encounter Visit Diagnoses Diagnosis Anal spasm documented in this encounter Care Teams Asphalt Plant Worker Relationship Specialty Start Date End Date Yoel Artis APRN [address] [place] [address] PCP - General Internal Medicine 11/18/22 07/29/24 documented as of this encounter
--- OUTSIDE RECORDS SUMMARY | 2024-10-03 10:56 | XMS_ITS | Encounter Summary ---
[place] [address] Care Team Providers Care Priest Name Role Phone Yoel Artis Ute ALCALA Primary Care Provider [phone] Reason for Visit * Auth/Cert (Routine) Specialty Diagnoses / Procedures Referred By Theodore t Referred To Contact Diagnoses STEMI (ST elevation myocardial infarction) STEMI Procedures ER IPI Vahe Marvin MD [facility] [place] [address] [facility] Referral ID Status Reason Start Date Expiration Date Visits Re quested Visits Authorized [id number] 1 1 Encounter Details Date Type Department Care Team (Late st Contact Info) Description 07/29/2024 12:00 PM EST - 07/29/2024 12:54 PM [place] [address] Vahe Marvin MD [facility] [place] [address] CARDIAC CATHETERIZATION Social History Tobacco Use Types [...] Korey Montoya Patient Age: 74 y.o. Language: Mongolian Race: White Ethnicity: Not nor Admit date: [...] please contact your inpatient physician through the [facility] Solar Thermal Technician . Issues afterhours and on weekends will [...] EKG. Patient transferred via air ambulance to [facility] on 07/29 for LHC [...] EKG. Was transferred via air ambulance to [facility] for further management and [...] the next year. Access was via right ORACLE APPLICATION CONSULTANT and this sitewas clean, dry and intact [...] for Chest pain. Replaces: nitroGLYcerin 400 mcg/spray Hammond, Non-Aerosol 0.4 mg Quantity: 90 tablet Refills: [...] Refills: 0 STOPPED Medications nitroGLYcerin 400 mcg/spray Hammond, Non-Aerosol Commonly known as: NITROLINGUAL Replaced by: [...] of one year. After this time, your public health representative will determine if you need to continue [...] away. Stay on the phone. The emergency stencil machine operator will tell you what to [...] appointments: During 8am-5pm Tuesday through Tuesday call [phone] to speak with a nurse in the cardiology clinic All other times call [phone] and ask to speak to the panel raiser operator quality control inspector. Follow up Appointments: PCP Alexia Mtz, [employer]URL[employer] ROLL COVERER [phone]. Please call to establish a follow up appointment within 1-2 weeks of discharge. Cardiology. Referral to heart failure has been sent. General Instructions None Future Appointments and Orders Future Orders Complete By Expires Referral to Cardiac Rehab [[id number] Custom] As directed Process Instructions: If no progress note charted, please enter Clinical details in comments. Scheduling Instructions: Questions: My question or request is: STEMI, PCI- cardiac rehab at [facility] Referral to Cardiology [REF12 Custom] [...] of one year. After this time, your public health representative will determine if you need to continue [...] away. Stay on the phone. The emergency stencil machine operator will tell you what to [...] appointments: During 8am-5pm Tuesday through Tuesday call [phone] to speak with a nurse in the cardiology clinic All other times call [phone] and ask to speak to the panel raiser operator quality control inspector. Follow up Appointments: PCP Alexia Mtz, BURLAP ROLL COVERER [phone]. Please call to establish a follow up [...] EKG. Patient transferred via air ambulance to [facility] on 07/29 for LHC and LOW to LAD for 100% occlusion Social History: Pt lives with his in a 1 level home with 2 NAOMI. 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 He [...] Total time: 35 (tef) minutes Time IN/OUT: 2766-1836 ZAIDA DUBOSE PT Pager: [phone] Physical Therapy Inpatient Rehabilitation Department * Yrn Velazquez MD - 08/03/2024 10:38 AM EST CV HOSPITALIST 2 - [facility] DAILY PROGRESS NOTE Page [phone] to reach a provider 04/04 Admit Date: [...] 82.4* Recent Labs 08/03/24 0516 08/02/24 0420 08/01/24 2039 08/01/24 0820 08/01/24 [...] Labs 08/03/24 0516 08/02/24 0747 08/02/24 0420 08/01/245 08/01/24 1655 08/01/24 1242 08/01/24 0744 08/01/24 [...] Compared to the overnight study by the quality control inspector fellow the impella position is stable. [...] the telemetry from the last 24 hours. [facility] Assessment: ASSESSMENT: Korey Montoya is a 74 y.o. male w/ PMH of hypertension, HLD, and BPH who presents for chief concern of chest pain after being found to have ST elevations on EKG. Patient transferred via air ambulance to [facility] on 07/29 for LHC and LWO to LAD for 100% occlusion. TREATMENT PLAN: [...] to be determined OT: PCP Alexia Mtz, BURLAP ROLL COVERER [phone] * Zaida Dubose, PT - 08/02/2024 2:08 PM EST Physical Therapy Evaluation Patient profile: Korey Montoya is a 74 y.o. male w/ PMH of hypertension, HLD, and BPH who presents for chief concern of chest pain after being found to have ST elevations on EKG. Patient transferred via air ambulance to [facility] on 07/29 for LHC and LOW to LAD for 100% occlusion Social History: Pt lives with his in a 1 level home with 2 NAOMI. 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 He [...] Total time: 37 (eval) minutes Time IN/OUT: 2146-1998 ZAIDA DUBOSE PT Pager: [phone] Physical Therapy Inpatient Rehabilitation Department * Gagan [...] EKG. Patient transferred via air ambulance to [facility] on 07/29 for LHC and LOW to LAD for 100% occlusion. TTE showed apical akinesis and inferior hypokinesis with EF 20%. RHC showed elevated filling pressures. Impella placed and P-level 6 at time of transfer to [facility]. CI initially 1.97, improved to [...] PCP: Alexia Mtz APRN PCP phone number: [phone] Date of Admission: 07/29/2024 ( Hospital Day 4 days ) Attending:Bridgette Stauffer MD ID: Korey Montoya is a 74 y.o. male w/ PMH of hypertension, HLD, and BPH on Hospital Day4 for chief concern of chest pain after being found to have ST elevations on EKG. Patient transferred via air ambulance to [facility] on 07/29 for LHC [...] 07/29/24 1621 PHART 7.48* 7.44 7.38 7.37 VFU1OSF 29* 29* 34* 36 PO2ART 71* 109* 141* 71* JFO9GDP 20.6 19.4* 19.5* 20.4 VBG (Venous Blood Gas) Recent Labs 07/29/24 1401 PHVEN 7.30* PO2VEN 39 ZME2EAA 20.1* Mixed Venous Sat No results for input(s): W7ODVI4 in the last 168 hours. Objective: Vitals [...] 07/29/24 1621 PHART 7.48* 7.44 7.38 7.37 NSU4PKQ 29* 29* 34* 36 PO2ART 71* 109* 141* 71* YMT0WOB 20.6 19.4* 19.5* 20.4 VBG (Venous Blood Gas) Recent Labs 07/29/24 1401 PHVEN 7.30* PO2VEN 39 TZJ6WWY 20.1* Mixed Venous Sat No results for input(s): Q7OJKV7 in the last 168 hours. Microbiology: Microbiology Results (Last 30 days) Procedure Component Value Units Date/Time Blood culture [[id number]] Collected: 07/29/24 160 Lab Status: Preliminary result Specimen: Blood, Venous Updated: 08/01/24 170 Blood Culture No growth at 72 hours Blood culture [[id number]] Collected: 07/29/24 160 Lab Status: Preliminary result Specimen: Blood, Venous Updated: 08/01/24 170 Blood Culture No growth at 72 hours Imaging: Results for orders placed or performed during the hospital encounter of 07/29/24 XR Chest One View (Exam End: 07/29/2024 2:30 PM) Result Value WORKSTATION ID [id number] Impression 1. No pulmonary edema. 2. No pleural effusion. 3. No pneumothorax. Thank you for letting us participate in the care of this patient. If you are a health care provider and have any questions regarding this report, please contact the number below. For patients who have questions please contact the health patient care coordinator that requested your imaging first. Electronically signed by: Chris Candelaria MD, [facility] ([phone]), at 07/29/2024 3:21 PM TTE ( 07/30/24) [...] Compared to the overnight study by the quality control inspector fellow the impella position is stable. [...] EKG. Patient transferred via air ambulance to [facility] on 07/29 for LHC [...] Internal Medicine, PGY-1 Cardiology, [facility] 08/02/24 12:45 PM CARDIOLOGY STAFF [...] today). Transfer to floor. Krystal Parker MD, [facility] Staff Maintenance Shop Manager ornamental plaster sticker * Gagan Catherine MD - 08/01/2024 11:12 AM EST STAFF PROGRESS NOTE Critical Care Medicine Author: Gagan Catehrine MD Patient seen and examined on critical [...] EKG. Patient transferred via air ambulance to [facility] on 07/29 for LHC [...] PCP: Alexia Mtz APRN PCP phone number: [phone] Date of Admission: 07/29/2024 ( Hospital Day 3 days ) Attending:Krystal Parker MD ID: Korey Montoya is a 74 y.o. male w/ PMH of hypertension, HLD, and BPH on Hospital Day3 for chief concern of chest pain after being found to have ST elevations on EKG. Patient transferred via air ambulance to [facility] on 07/29 for LHC [...] 07/29/24 1621 PHART 7.48* 7.44 7.38 7.37 BEZ5ZJK 29* 29* 34* 36 PO2ART 71* 109* 141* 71* OUI3JIO 20.6 19.4* 19.5* 20.4 VBG (Venous Blood Gas) Recent Labs 07/29/24 1401 PHVEN 7.30* PO2VEN 39 IWG3TID 20.1* Mixed Venous Sat No results for input(s): D7UATW6 in the last 168 hours. PA Catheter [...] 07/29/24 1621 PHART 7.48* 7.44 7.38 7.37 GJU2ZYA 29* 29* 34* 36 PO2ART 71* 109* 141* 71* LDG6USQ 20.6 19.4* 19.5* 20.4 VBG (Venous Blood Gas) Recent Labs 07/29/24 1401 PHVEN 7.30* PO2VEN 39 EAB3QOD 20.1* Mixed Venous Sat No results for input(s): N2MXKY1 in the last 168 hours. Microbiology: Microbiology Results (Last 30 days) Procedure Component Value Units Date/Time Blood culture [[id number]] Collected: 07/29/241607 Lab Status: Preliminary result Specimen: Blood, Venous Updated: 07/31/241700 Blood Culture No growth at 48 hours Blood culture [[id number]] Collected: 07/29/241607 Lab Status: Preliminary result Specimen: Blood, Venous Updated: 07/31/241700 Blood Culture No growth at 48 hours Imaging: Results for orders placed or performed during the hospital encounter of 07/29/24 XR Chest One View (Exam End: 07/29/2024 2:30 PM) Result Value WORKSTATION ID [id number] Impression 1. No pulmonary edema. 2. No pleural effusion. 3. No pneumothorax. Thank you for letting us participate in the care of this patient. If you are a health care provider and have any questions regarding this report, please contact the number below. For patients who have questions please contact the health patient care coordinator that requested your imaging first. Electronically signed by: Chris Candelaria MD, [facility] ([phone]), at 07/29/2024 3:21 PM TTE ( 07/30/24) [...] Compared to the overnight study by the quality control inspector fellow the impella position is stable. [...] EKG. Patient transferred via air ambulance to [facility] on 07/29 for LHC [...] with him; questions answered. Krystal Parker MD, [facility] Staff Maintenance Shop Manager ornamental plaster sticker * Krystal Parker MD - 07/31/2024 1:06 [...] EKG. Patient transferred via air ambulance to [facility] on 07/29 for LHC and LOW to LAD for 100% occlusion. TTE showed apical akinesis and inferior hypokinesis with EF 20%. RHC showed elevated filling pressures. Impella placed and P-level 6 at time of transfer to [facility]. CI initially 1.97, improved to 2.2 After impella. Received about 3 L of fluid during procedural course. Patient initially required norepinephrine 30, epinephrine 10, and vasopressin 0.04 for hemodynamic support, which was weaned upon arrival to [facility] to norepinephrine 20and levo 0.04 [...] PCP: Alexia Mtz APRN PCP phone number: [phone] Date of Admission: 07/29/2024 ( Hospital Day 2 days ) Attending:Krystal Parker MD ID: Korey Montoya is a 74 y.o. male w/ PMH of hypertension, HLD, and BPH on Hospital Day2 for chief concern of chest pain after being found to have ST elevations on EKG. Patient transferred via air ambulance to [facility] on 07/29 for LHC [...] 0057 07/29/24 1621 PHART 7.44 7.38 7.37 LCM9NOV 29* 34* 36 PO2ART 109* 141* 71* UUV8RCP 19.4* 19.5* 20.4 VBG (Venous Blood Gas) Recent Labs 07/29/24 1401 PHVEN 7.30* PO2VEN 39 ONV8XXJ 20.1* Mixed Venous Sat No results for input(s): N4ALBI2 in the last 168 hours. PA Catheter [...] 0057 07/29/24 1621 PHART 7.44 7.38 7.37 XCO9KEA 29* 34* 36 PO2ART 109* 141* 71* DMN6EED 19.4* 19.5* 20.4 VBG (Venous Blood Gas) Recent Labs 07/29/24 1401 PHVEN 7.30* PO2VEN 39 PHB7CWF 20.1* Mixed Venous Sat No results for input(s): N8QATV6 in the last 168 hours. Microbiology: Microbiology Results (Last 30 days) Procedure Component Value Units Date/Time Blood culture [[id number]] Collected: 07/29/24 160 Lab Status: Preliminary result Specimen: Blood, Venous Updated: 07/30/24 170 Blood Culture No Growth at 18-24 hrs. Blood culture [[id number]] Collected: 07/29/241607 Lab Status: Preliminary result Specimen: Blood, Venous Updated: 07/30/241700 Blood Culture No Growth at 18-24 hrs. Imaging: Results for orders placed or performed during the hospital encounter of 07/29/24 XR Chest One View (Exam End: 07/29/2024 2:30 PM) Result Value WORKSTATION ID [id number] Impression 1. No pulmonary edema. 2. No pleural effusion. 3. No pneumothorax. Thank you for letting us participate in the care of this patient. If you are a health care provider and have any questions regarding this report, please contact the number below. For patients who have questions please contact the health patient care coordinator that requested your imaging first. Electronically signed by: Chris Candelaria MD, [facility] ([phone]), at 07/29/2024 3:21 PM TTE ( 07/30/24) [...] Compared to the overnight study by the quality control inspector fellow the impella position is stable. [...] EKG. Patient transferred via air ambulance to [facility] on 07/29 for LHC [...] work to optimize volume status while continuing dqulvll-pmrvhs-wyuniqyqsc therapies at this time. Obtain comprehensive TTE. [...] EKG. Patient transferred via air ambulance to [facility] on 07/29 for LHC and LOW to LAD for 100% occlusion. TTE showed apical akinesis and inferior hypokinesis with EF 20%. RHC showed elevated filling pressures. Impella placed and P-level 6 at time of transfer to [facility]. CI initially 1.97, improved to 2.2 After impella. Received about 3 L of fluid during procedural course. Patient initially required norepinephrine 30, epinephrine 10, and vasopressin 0.04 for hemodynamic support, which was weaned upon arrival to [facility] to norepinephrine 20and levo 0.04 [...] PCP: Yoel Artis APRN PCP phone number: [phone] Date of Admission: 07/29/2024 ( Hospital Day 1 day ) Attending:Aubree Silverio MD ID: Korey Montoya is a 74 y.o. male w/ PMH of hypertension, HLD, and BPH on Hospital Day1 for chief concern of chest pain after being found to have ST elevations on EKG. Patient transferred via air ambulance to [facility] on 07/29 for LHC [...] 0057 07/29/24 1621 PHART 7.44 7.38 7.37 EEJ1BAL 29* 34* 36 PO2ART 109* 141* 71* SMH1ETS 19.4* 19.5* 20.4 VBG (Venous Blood Gas) Recent Labs 07/29/24 1401 PHVEN 7.30* PO2VEN 39 CPZ5EVU 20.1* Lactate ( Last 12 hours) 1.3 >> 1.2 Mixed Venous Sat No results for input(s): K3OJXG2 in the last 168 hours. PA Catheter [...] 07/29/24 Proximal;Right Femoral (Active) Site Assessment Clean;Dry;Intact 11/18/24 0600 Line Status Infusing 07/30/24 06 Dressing Status [...] hours. Recent Labs 07/30/24 0809 07/29/24 2231 11/17/24 2011 TROPONINTHS 8,651* >10,000* >10,000* Recent Labs [...] 0057 07/29/24 1621 PHART 7.44 7.38 7.37 HFF3FVI 29* 34* 36 PO2ART 109* 141* 71* HTF0WUC 19.4* 19.5* 20.4 VBG (Venous Blood Gas) Recent Labs 07/29/24 1401 PHVEN 7.30* PO2VEN 39 CEU8GGC 20.1* Mixed Venous Sat No results for input(s): L9RBIY4 in the last 168 hours. Microbiology: Microbiology Results (Last 30 days) Procedure Component Value Units Date/Time Blood culture [[id number]] Collected: 07/29/24 1608 Lab Status: In process Specimen: Blood, Venous Updated: 07/29/24 1626 Blood culture [[id number]] Collected: 07/29/24 1608 Lab Status: In process Specimen: Blood, Venous Updated: 07/29/24 1615 Imaging: Results for orders placed or performed during the hospital encounter of 07/29/24 XR Chest One View (Exam End: 07/29/2024 2:30 PM) Result Value WORKSTATION ID [id number] Impression 1. No pulmonary edema. 2. No pleural effusion. 3. No pneumothorax. Thank you for letting us participate in the care of this patient. If you are a health care provider and have any questions regarding this report, please contact the number below. For patients who have questions please contact the health patient care coordinator that requested your imaging first. Medications Scheduled [...] EKG. Patient transferred via air ambulance to [facility] on 07/29 for LHC [...] EKG. Patient transferred via air ambulance to [facility] on 07/29 for LHC [...] EKG. Was transferred via air ambulance to [facility] for further management and [facility] demo nstrated 100% occlusion. No significant RCA, LMCA, or LCX disease. LOW placed in LAD with some residual distal disease meriting placement of overlapping distal stent. TTE showed apical akinesis and inferior hypokinesis with EF 20%. RHC showed elevated filling pressures. Impella placed and P-level 6 at time of transfer to [facility]. CI initially 1.97, improved to 2.2 After impella. Received about 3 L of fluid during procedural course. Patient initially required norepinephrine, epinephrine, and vasopressin for hemodynamic support, which was weaned upon arrival to [facility] to norepinephrine 20 and levo [...] Mcgovern MD [facility] ENDOSCOPY Significant Family History: Family [...] mouth. Past Week nitroGLYcerin (NITROLINGUAL) 400 mcg/spray Hammond, Non-Aerosol 1 spray to anus for proctalgia [...] 3.5 guiding catheter and a 3.5 Fr [facility] [place] ST 20 Mhz using Manual pullback. Imaging [...] priority for the procedure was Emergent. The [facility] indication for the procedure was STEMI-Immediate PCI [...] atmospheres. A premounted 3.00 x 22 mm [place] (LOW) was deployed with a maximum inflation [...] A premounted 3.00 x 08 mm [place] (LOW) was deployed with a maximum inflation [...] a limited study performed by a fellow quality control inspector to evaluate for cardiogenic shock with [...] Compared to the overnight study by the quality control inspector fellow the impella position is stable. [...] EKG. Patient transferred via air ambulance to [facility] on 07/29 for LHC [...] PCP: Yoel Artis APRN PCP phone number: [phone] Date of Admission: 07/29/2024 ( Hospital Day 0 days ) Attending:Aubree Silverio MD ID: Korey Montoya is a 74 y.o. male w/ PMH of hypertension, HLD, and BPH who presents for chief concern of chest pain after being found to have ST elevations on EKG. Patient transferred via air ambulance to [facility] on 07/29 for LHC and LOW to LAD for 100% occlusion. HPI: Korey Montoya is a 74 y.o. male w/ PMH of hypertension, HLD, and BPH who presents for chief concern of chest pain after being found to have ST elevations on EKG. Patient transferred via air ambulance to [facility] on 07/29 for LHC [...] EKG. Was transferred via air ambulance to [facility] for further management and [...] Mcgovern MD [facility] ENDOSCOPY Family History Family History [...] Blood Gas) No results for input(s): PHART, QIU3VEL, PO2ART, LQV1WEH, LACTATEVEN, ADM7YPO, PFRATIOART2 in the last 168 hours. VBG (Venous Blood Gas) Recent Labs 07/29/24 1401 PHVEN 7.30* PO2VEN 39 WHC1IOC 20.1* Mixed Venous Sat No results for input(s): W8OVMH3 in the last 168 hours. PA Catheter [...] Blood Gas) No results for input(s): PHART, ZID9PDL, PO2ART, QDF0IYQ, LACTATEVEN, XGD3JXD, PFRATIOART2 in the last 168 hours. VBG (Venous Blood Gas) Recent Labs 07/29/24 1401 PHVEN 7.30* PO2VEN 39 ORQ4EYM 20.1* Mixed Venous Sat No results for input(s): W0CVYV7 in the last 168 hours. Microbiology: Microbiology [...] EKG. Patient transferred via air ambulance to [facility] on 07/29 for LHC. Found to have 100% occlusion of LAD for which he underwent LOW to LAD.Otherwise no other significant vessel disease. Fahad is currently hemodynamically tenuous but improving upon admission to [facility], requiring hemodynamic support with norepinephrine and vasopressin at time of admission along with mechanical support with Impella device. Reassuringly, he demonstrates decreasing pressor requirements since admission to [facility], with epinephrine completely weaned. He [...] Internal Medicine, PGY-3 Cardiology, [facility] 07/29/24 3:14 PM Cardiology Attending [...] MD, FACP, FACC Section of Cardiovascular Medicine [facility] Roller Stitcherstraight line edger [employer] [facility] [...] to the planned procedure. Hand Hygiene: The dope maintenance worker did perform hand hygiene prior to [...] ease. Good wave form. Ivan Hernandez MD Watch Mechanic Associated attestation - Rolando Yeh MD - [...] in an outpatient cardiac rehabilitation program at [facility] was discussed. Patient agrees to [...] No Patient is insured through: Primary Insurance: [employer] MANAGED MEDICARE Payor: [employer] MANAGED MEDICARE / [facility] / [...] of Discharge: 08/04/2024 Gaby Wong RN, CM [phone] * Initial Assessments - Char Meza OT - 08/03/2024 10:00 AM EST Occupational Therapy Evaluation Patient profile: Korey Montoya is a 74 y.o. male admitted on 07/29/2024 w/ PMH of hypertension, HLD, and BPH who presents for chief concern of chest pain after being found to have ST elevations onEKG. Patient transferred via air ambulance to [facility] on 07/29 for LHC and LOW to LAD for 100% occlusion. Past Medical History: Diagnosis Date ADHD HLD (hyperlipidemia) HTN (hypertension) Tremor Past Surgical History: Procedure Laterality Date HAND SURGERY PRO COLONOSCOPY, REMV LESN, SNARE N/A 08/30/2023 COLONOSCOPY, POLYPECTOMY, REMOVAL LESION BY SNARE (WRVU 4.57) performed by Brandan Mcgovern MD [facility] ENDOSCOPY Social History: Patient lives with his . Home Setup: 2 NAOMI to a 1 level home. DME: none Baseline ADL/Mobility: Independent with ADLs and IADLs. Enjoys walking. able assist as needed. Precautions/Special Considerations: Full code. Risk for falls. Subjective: I have access to an [employer] gym. (Educated to wait for MD to [...] evaluation only Total Minutes, Occupational Therapy: 14 ([id number] (evaluation)) 2017 OT Evaluation Code Rationale: Diagnosis [...] and measurable assessment of functional outcome. Pager: [phone] Char Meza OT 08/03/2024 Occupational Therapy Rehabilitation [...] (Interventions Implemented as Appropriate) Flowsheets (Taken 08/01/2024 5790) Outcome Summary: A+O, no pain. NSR. MAP > 65, no intervention. Dobutamine and amiodarone gtts off, CI > 2 via TD and Thmoas. PA cath, intro, arterial line removed. RA. Tolerating diet. Perez removed, voiding appropriately in urinal. 20mg Lasix given with good effect. Plan of Care Reviewed With: patient Progress: improving * Brief Op Note - Maldonado Luis MD - 07/31/2024 5:35 PM EST Preliminary Cardiac Catheterization Procedure Note: Patient Name: Korey Montoya : [id number] MR#: [id number] Case Date: 07/31/2024 Solar Thermal Technician: Surgeons and Role: * Maldonado Luis MD - Primary * Quinten Charles PA - Physician Spaghetti Machine Operator Preoperative diagnosis: shock, impella Postoperative diagnosis: * same * Procedure(s) performed: Impella removal form right ORACLE APPLICATION CONSULTANT Access: Right ORACLE APPLICATION CONSULTANT A time-out was conducted prior to the [...] 180 days) Any patient receiving care in [place] must abide by [place] law. The hierarchy [...] (i) The agent with financial power of erisa attorney or a conservator appointed in accordance [...] homeless or living in a jail (including now)?: No In the past 12 [...] Home Address confirmed as: Mailing Address: [address] [address] Physical Address: [address] [place] [address] Social & Family Supports: All names listed [...] points: Addiction likely Health/Prescription Coverage: Primary Insurance: [employer] MANAGED MEDICARE [facility] / Plan: [facility] MANAGED MEDICARE COMPLETE / Product Type: *No Product type* / Secondary Insurance: N/A ; Prescription Coverage: Yes Preferred Pharmacy: [address] - [address] [address] [place] Status: Patient is a : No Primary Care Provider confirmed: Alexia Mtz, BURLAP ROLL COVERER [phone] Patient/Caregiver Goals of Treatment: return home Potential [...] Implemented as Appropriate) Goal: Patient-Specific Goal (Individualized) 07/30/2024 05 by Chase Castro RN Outcome: [...] 6:25 PM EST Pt arrived from construction 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 CXR and EKG completed. [...] Procedure Note: Patient Name: Korey Montoya : [id number] MR#: [id number] Case Date: 07/29/2024 Solar Thermal Technician: Surgeons and Role: * Vahe Marvin MD - Primary * Susannah Watts PA - Physician Spaghetti Machine Operator Preoperative diagnosis: STEMI Postoperative diagnosis: * STEMI, LAD Artery * * Cardiogenic Shock * Procedure(s) performed: [facility] Coronary angiogram Stent insertion coronary IVUS coronary Venous line insert [facility] [place] Colette Catheter Vascular closure device Ventricular assist [...] x 22 mm to 14 deonna JEISON Kusilv[place] with LIZ 3 flow. Residual distal disease at distal stent, overlapping distal stent was inserted with 3.0 x 8 mm JEISON Kusilvak. Systolic's in the 80's sustained. Patient re [...] 9:30 AM EST Appointment [place] [address] Mushtaq Murphy, BURLAP ROLL COVERER 10/31/2024 11:00 AM EST Office Visit Cardiology at [address] [address] Mushtaq Murphy, BURLAP ROLL COVERER Scheduled Orders Name Type Priority Associated Diagnoses [...] ORDERABLE S [facility] [place] [address] * Magnesium (08/04/2024 6:08 AM EST) Pathologist [facility] Magnesium 0.85 0.69 - 1.07 mMol/L 08/04/2024 7:07 AM [facility] Blood VENOUS BLOOD SPECIMEN / Unknown Venipuncture / Unknown 08/04/2024 6:08 AM EST 08/04/2024 6:19 AM EST Bridgette Stauffer MD CHEMISTRY ORDERABLES [facility] [place] [address] * Basic Metabolic Panel (08/04/2024 6:08 AM EST) Pathologist [facility] Glucose 93 65 - 199 mg/dL 08/04/2024 [...] - 10.5 mg/dL 08/04/2024 7:07 AM [facility] Est Glomerular Filtration Rate - Male 74 mL/min/1. 73 m?? 08/04/2024 7:07 AM [facility] Comment: This [...] CHEMISTRY ORDERABLES [facility] [place] [address] * (ABNORMAL) CBC (with Diff) (08/03/2024 5:16 AM EST) White Blood Cell 7.85 4.00 - 9.50 x10(3)/mc L 08/03/2024 5:29 AM [facility] Red Blood Cell 4.43(L) 4.58 - 5.54 x10(6)/mc L 08/03/2024 5:29 AM [facility] Hemoglobin 11.8(L) 13.7 - 16.5 g/dL 08/03/2024 5:29 AM [facility] Hematocrit 35.9(L) 40.5 - 48.5 % 08/03/2024 5:29 AM [facility] Mean Cell Volume 81.0(L) 82.9 - 93.1 fL 08/03/2024 5:29 AM [facility] Mean Cell Hemoglobin 26.6(L) 27.5 - 32.1 pg 08/03/2024 5:29 AM [facility] Mean Cell Hemoglobin Concentration 32.9 32.0 - 35.7 g/dL 08/03/2024 5:29 AM [facility] Platelet 142(L) 145 - 357 x10(3)/mc L 08/03/2024 5:29 AM [facility] Mean Platelet Volume 10.5 7.6 - 12.9 fL 08/03/2024 5:29 AM [facility] RDW Standard Deviation 42.5 36.0 - 45.0 fL 08/03/2024 5:29 AM [facility] RDW coefficient of variation 14.2(H) 11.4 - 13.8 % 08/03/2024 5:29 AM [facility] NRBC% auto 0.0 % 08/03/2024 5:29 AM [facility] NRBC Absolute <0.01 <0.01 x10(3)/mc L 08/03/2024 5:29 AM [facility] Neutrophil % 75.2 % 08/03/2024 5:29 AM [facility] Neutrophil Absolute (ANC) - Automated 5.91 1.70 - 6.10 x10(3)/mc L 08/03/2024 5:29 AM [facility] Lymph % 13.4 % 08/03/2024 5:29 AM [facility] Lymph Absolute 1.05 0.90 - 3.20 x10(3)/mc L 08/03/2024 5:29 AM [facility] Monocyte % 9.0 % 08/03/2024 5:29 AM [facility] Monocyte Absolute 0.71 0.30 - 0.90 x10(3)/mc L 08/03/2024 5:29 AM [facility] Eos % 1.7 % 08/03/2024 5:29 AM [facility] Eos Absolute 0.13 0.00 - 0.40 x10(3)/mc L 08/03/2024 5:29 AM [facility] Basophil % 0.4 % 08/03/2024 5:29 AM [facility] Baso Absolute <0.04 0.00 - 0.10 x10(3)/mc L 08/03/2024 5:29 AM [facility] Immature Gran % 0.3 % 5:29 AM [facility] Immature Gran Absolute <0.04 0.00 - 0.04 x10(3)/mc L 08/03/2024 5:29 AM [facility] Blood VENOUS BLOOD SPECIMEN / Unknown Venipuncture / Unknown 08/03/2024 5:16 AM EST 08/03/2024 5:23 AM EST Bridgette Stauffer MD HEMATOLOGY ORDERABLE S Performing Organization Address City/[facility]/ZIP Co de Phone Number [facility] [place] [address] * Magnesium (08/03/2024 5:16 AM EST) Magnesium 0.89 0.69 - 1.07 mMol/L 08/03/2024 5:56 AM [facility] Blood VENOUS BLOOD SPECIMEN / Unknown Venipuncture / Unknown 08/03/2024 5:16 AM EST 08/03/2024 5:23 AM EST Bridgette Stauffer MD CHEMISTRY ORDERABLES [facility] [place] [address] * (ABNORMAL) Basic Metabolic Panel (08/03/2024 5:16 AM EST) Glucose 98 65 - 199 mg/dL 08/03/2024 5:56 AM [facility] Comment:Glucose Concentratio n >=200 mg/dL plus symptoms is consistent with Diabetes Mellitus. Blood Urea Nitrogen 16 10 - 20 mg/dL 08/03/2024 5:56 AM [facility] Creatinine 0.85 0.80 - 1.50 mg/dL 08/03/2024 5:56 AM EST [facility] Sodium 137 135 - 145 mMol/L 08/03/2024 5:56 AM [facility] Potassium 4.5 3.5 - 5.0 mMol/L 08/03/2024 5:56 AM [facility] Chloride 106 98 - 107 mMol/L 08/03/2024 5:56 AM [facility] Carbon Dioxide 21(L) 22 - 31 mMol/L 08/03/2024 5:56 AM [facility] Anion Gap 10 5 - 15 mMol/L 08/03/2024 5:56 AM [facility] Calcium 8.3(L) 8.5 - 10.5 mg/dL 08/03/2024 5:56 AM [facility] Est Glomerular Filtration Rate - Male 92 mL/min/1. 73 m?? 08/03/2024 5:56 AM [facility] Comment: This [...] CHEMISTRY ORDERABLES [facility] [place] [address] * POC, GLUCOSE (08/02/2024 7:47 AM EST) Glucometer, POC 89 65 - 199 mg/dL 08/02/2024 7:47 AM [facility] Comment:Supplemental ranges: <140 mg/dL before meals <180 mg/dL all other times of the day. Blood CAPILLARY BLOOD / Unknown 08/02/2024 7:47 AM EST 08/02/2024 7:47 AM EST Krystal Parker MD POINT OF CARE TEST O RDERABLES [facility] [place] [address] * (ABNORMAL) CBC (with Diff) (08/02/2024 4:20 AM EST) [facility] White Blood Cell 8.51 4.00 - 9.50 x10(3)/mc L 08/02/2024 4:50 AM [facility] Red Blood Cell 4.41(L) 4.58 - 5.54 x10(6)/mc L 08/02/2024 4:50 AM [facility] Hemoglobin 12.2(L) 13.7 - 16.5 g/dL 08/02/2024 4:50 AM [facility] Hematocrit 35.8(L) 40.5 - 48.5 % 08/02/2024 4:50 AM [facility] Mean Cell Volume 81.2(L) 82.9 - 93.1 fL 08/02/2024 4:50 AM [facility] Mean Cell Hemoglobin 27.7 27.5 - 32.1 pg 08/02/2024 4:50 AM [facility] Mean Cell Hemoglobin Concentration 34.1 32.0 - 35.7 g/dL 08/02/2024 4:50 AM [facility] Platelet 111(L) 145 - 357 x10(3)/mc L 08/02/2024 4:50 AM [facility] Mean Platelet Volume 11.1 7.6 - 12.9 fL 08/02/2024 4:50 AM [facility] RDW Standard Deviation 41.9 36.0 - 45.0 fL 08/02/2024 4:50 AM [facility] RDW coefficient of variation 14.1(H) 11.4 - 13.8 % 08/02/2024 4:50 AM [facility] NRBC% auto 0.0 % 08/02/2024 4:50 AM [facility] NRBC Absolute <0.01 <0.01 x10(3)/mc L 08/02/2024 4:50 AM [facility] Neutrophil % 77.7 % 08/02/2024 4:50 AM [facility] Neutrophil Absolute (ANC) - Automated 6.62(H) 1.70 - 6.10 x10(3)/mc L 08/02/2024 4:50 AM [facility] Lymph % 11.9 % 08/02/2024 4:50 AM [facility] Lymph Absolute 1.01 0.90 - 3.20 x10(3)/mc L 08/02/2024 4:50 AM [facility] Monocyte % 8.2 % 08/02/2024 4:50 AM [facility] Monocyte Absolute 0.70 0.30 - 0.90 x10(3)/mc L 08/02/2024 4:50 AM [facility] Eos % 1.4 % 08/02/2024 4:50 AM [facility] Eos Absolute 0.12 0.00 - 0.40 x10(3)/mc L 08/02/2024 4:50 AM [facility] Basophil % 0.4 % 08/02/2024 4:50 AM [facility] Baso Absolute <0.04 0.00 - 0.10 x10(3)/mc L 08/02/2024 4:50 AM [facility] Immature Gran % 0.4 % 4:50 AM [facility] Immature Gran Absolute <0.04 0.00 - 0.04 x10(3)/mc L 08/02/2024 4:50 AM [facility] Blood VENOUS BLOOD SPECIMEN / Unknown Venipuncture / Unknown 08/02/2024 4:20 AM EST 08/02/2024 4:37 AM EST Bridgette Stauffer MD HEMATOLOGY ORDERABLE S Performing Organization Address City/[facility]/ZIP Co de Phone Number [facility] [place] [address] * Magnesium (08/02/2024 4:20 AM EST) Magnesium 0.79 0.69 - 1.07 mMol/L 08/02/2024 5:06 AM [facility] Blood VENOUS BLOOD SPECIMEN / Unknown Venipuncture / Unknown 08/02/2024 4:20 AM EST 08/02/2024 4:37 AM EST Bridgette Stauffer MD CHEMISTRY ORDERABLES Performing Organization Address City/[facility] Co de Phone Number [facility] [place] [address] * (ABNORMAL) Basic Metabolic Panel (08/02/2024 4:20 AM EST) Glucose 110 65 - 199 mg/dL 08/02/2024 5:06 AM [facility] Comment:Glucose Concentratio n >=200 mg/dL plus symptoms is consistent with Diabetes Mellitus. Blood Urea Nitrogen 12 10 - 20 mg/dL 08/02/2024 5:06 AM [facility] Creatinine 0.90 0.80 - 1.50 mg/dL 08/02/2024 5:06 AM [facility] Sodium 139 135 - 145 mMol/L 08/02/2024 5:06 AM [facility] Potassium 4.0 3.5 - 5.0 mMol/L 08/02/2024 5:06 AM [facility] Chloride 108(H) 98 - 107 mMol/L 08/02/2024 5:06 AM EST [facility] Carbon Dioxide 23 22 - 31 mMol/L 08/02/2024 5:06 AM [facility] Anion Gap 8 5 - 15 mMol/L 08/02/2024 5:06 AM [facility] Calcium 8.1(L) 8.5 - 10.5 mg/dL 08/02/2024 5:06 AM [facility] Est Glomerular Filtration Rate - Male 91 mL/min/1. 73 m?? 08/02/2024 5:06 AM EST [facility] Stauffer MD CHEMISTRY ORDERABLES Performing Organization Address City/State/[facility] Co de Phone Number [facility] [place] [address] * Potassium (08/01/2024 8:39 PM EST) Potassium 4.0 3.5 - 5.0 mMol/L 08/01/2024 9:21 PM EST [facility] Blood VENOUS BLOOD SPECIMEN / Unknown Venipuncture / Unknown 08/01/2024 8:39 PM EST 08/01/2024 8:51 PM EST Aubree Silverio MD CHEMISTRY ORDERABL ES Performing Organization Address [facility] Co de Phone Number [facility] [place] [address] * POC, GLUCOSE (08/01/2024 8:35 PM EST) Glucometer, POC 112 65 - 199 mg/dL 08/01/2024 8:36 PM EST [facility] Comment:Supplemental ranges: <140 mg/dL before meals <180 mg/dL all other times of the day. Blood CAPILLARY BLOOD / Unknown 08/01/2024 8:35 PM EST 08/01/2024 8:36 PM EST Krystal Parker MD POINT OF CARE TEST O RDKAY Performing Organization Address [facility] de Phone Number [facility] [place] [address] * POC, GLUCOSE (08/01/2024 4:55 PM EST) Glucometer, POC 99 65 - 199 mg/dL 08/01/2024 4:56 PM EST [facility] Comment:Supplemental ranges: <140 mg/dL before meals <180 mg/dL all other times of the day. Blood CAPILLARY BLOOD / Unknown 08/01/2024 4:55 PM EST 08/01/2024 4:56 PM EST Krystal Parker MD POINT OF CARE TEST O JOSH Performing Organization Address [facility] Co de Phone Number [facility] [place] [address] * POC, GLUCOSE (08/01/2024 12:42 PM EST) Glucometer, POC 130 65 - 199 mg/dL 08/01/2024 12:43 PM EST [facility] Comment:Supplemental ranges: <140 mg/dL before meals <180 mg/dL all other times of the day. Blood CAPILLARY BLOOD / Unknown 08/01/2024 12:42 PM EST 08/01/2024 12:43 PM EST Krystal Parker MD POINT OF CARE TEST O RDERASHAY Performing Organization Address City/[facility]/ZIP Co de Phone Number [facility] [place] [address] * (ABNORMAL) Cooximetry, POC (08/01/2024 10:45 AM EST) pO2, Coox 32 mmHg 08/01/2024 10:48 AM EST [facility] Hemoglobin, Coox 12.9(L) 13.7 - [...] MD POINT OF CARE TEST O RDKAY [facility] [place] [address] * Potassium (08/01/2024 8:20 AM EST) Potassium 4.0 3.5 - 5.0 mMol/L 08/01/2024 10:17 AM EST [facility] Blood ARTERIAL BLOOD / Unknown Venipuncture / Unknown 08/01/2024 8:20 AM EST 08/01/2024 8:30 AM EST Aubree Silverio MD CHEMISTRY ORDERABL ES Performing Organization Address City/[facility]/ZIP Co de Phone Number [facility] [place] [address] * POC, GLUCOSE (08/01/2024 7:44 AM EST) [facility] Glucometer, POC 86 65 - 199 mg/dL 08/01/2024 7:44 AM [facility] Comment:Supplemental ranges: <140 mg/dL before meals <180 mg/dL all other times of the day. Blood CAPILLARY BLOOD / Unknown 08/01/2024 7:44 AM EST 08/01/2024 7:44 AM EST Krystal Parker MD POINT OF CARE TEST O RDERABLES Performing Organization Address [facility] Co de Phone Number [facility] [place] [address] * (ABNORMAL) CBC (with Diff) (08/01/2024 4:18 AM EST) [facility] White Blood Cell 8.51 4.00 - 9.50 x10(3)/mc L 08/01/2024 4:53 AM [facility] Red Blood Cell 4.12(L) 4.58 - 5.54 x10(6)/mc L 08/01/2024 4:53 AM [facility] Hemoglobin 11.2(L) 13.7 - 16.5 g/dL 08/01/2024 4:53 AM [facility] Hematocrit 33.8(L) 40.5 - 48.5 % 08/01/2024 4:53 AM [facility] Mean Cell Volume 82.0(L) 82.9 - 93.1 fL 08/01/2024 4:53 AM [facility] Mean Cell Hemoglobin 27.2(L) 27.5 - 32.1 pg 08/01/2024 4:53 AM [facility] Mean Cell Hemoglobin Concentration 33.1 32.0 - 35.7 g/dL 08/01/2024 4:53 AM [facility] Platelet 94(L) 145 - 357 x10(3)/mc L 08/01/2024 4:53 AM [facility] Mean Platelet Volume 10.9 7.6 - 12.9 fL 08/01/2024 4:53 AM [facility] RDW Standard Deviation 44.2 36.0 - 45.0 fL 08/01/2024 4:53 AM [facility] RDW coefficient of variation 14.7(H) 11.4 - 13.8 % 08/01/2024 4:53 AM [facility] NRBC% auto 0.0 % 08/01/2024 4:53 AM [facility] NRBC Absolute <0.01 <0.01 x10(3)/mc L 08/01/2024 4:53 AM [facility] Neutrophil % 82.7 % 08/01/2024 4:53 AM [facility] Neutrophil Absolute (ANC) - Automated 7.04(H) 1.70 - 6.10 x10(3)/mc L 08/01/2024 4:53 AM [facility] Lymph % 8.6 % 08/01/2024 4:53 AM [facility] Lymph Absolute 0.73(L) 0.90 - 3.20 x10(3)/mc L 08/01/2024 4:53 AM [facility] Monocyte % 7.6 % 08/01/2024 4:53 AM [facility] Monocyte Absolute 0.65 0.30 - 0.90 x10(3)/mc L 08/01/2024 4:53 AM [facility] Eos % 0.5 % 08/01/2024 4:53 AM [facility] Eos Absolute 0.04 0.00 - 0.40 x10(3)/mc L 08/01/2024 4:53 AM [facility] Basophil % 0.2 % 08/01/2024 4:53 AM EST [facility] Baso Absolute <0.04 0.00 - 0.10 x10(3)/mc L 08/01/2024 4:53 AM EST [facility] Immature Gran % 0.4 % 4:53 AM [facility] Immature Gran Absolute <0.04 0.00 - 0.04 x10(3)/mc L 08/01/2024 4:53 AM EST [facility] Blood VENOUS BLOOD SPECIMEN / Unknown Venipuncture / Unknown 08/01/2024 4:18 AM EST 08/01/2024 4:29 AM EST Bridgette Stauffer MD HEMATOLOGY ORDERABLE S [facility] [place] [address] * Magnesium (08/01/2024 4:18 AM EST) Magnesium 0.74 0.69 - 1.07 mMol/L 08/01/2024 5:00 AM [facility] Blood VENOUS BLOOD SPECIMEN / Unknown Venipuncture / Unknown 08/01/2024 4:18 AM EST 08/01/2024 4:29 AM EST Bridgette Stauffer MD CHEMISTRY ORDERABLES [facility] [place] [address] * (ABNORMAL) Basic Metabolic Panel (08/01/2024 4:18 AM EST) Glucose 107 65 - 199 mg/dL 08/01/2024 5:00 AM [facility] Comment:Glucose Concentratio n >=200 mg/dL plus symptoms is consistent with Diabetes Mellitus. Blood Urea Nitrogen 8(L) 10 - 20 mg/dL 08/01/2024 5:00 AM EST [facility] Creatinine 0.82 0.80 - 1.50 mg/dL 08/01/2024 5:00 AM [facility] Sodium 137 135 - 145 mMol/L 08/01/2024 5:00 AM [facility] Potassium 3.9 3.5 - 5.0 mMol/L 08/01/2024 5:00 AM [facility] Chloride 108(H) 98 - 107 mMol/L 08/01/2024 5:00 AM [facility] Carbon Dioxide 21(L) 22 - 31 mMol/L 08/01/2024 5:00 AM [facility] Anion Gap 8 5 - 15 mMol/L 08/01/2024 5:00 AM [facility] Calcium 7.7(L) 8.5 - 10.5 mg/dL 08/01/2024 5:00 AM [facility] Est Glomerular Filtration Rate - Male 93 mL/min/1. 73 m?? 08/01/2024 5:00 AM [facility] Comment: This [...] CHEMISTRY ORDERABLES [facility] [place] [address] * POC, GLUCOSE (07/31/2024 8:41 PM EST) [...] O RDERABLES [facility] [place] [address] * CARDIAC CATHETERIZATION (07/31/2024 5:53 PM EST) Anatomical Region Laterality Modality Other Narrative 08/01/2024 12:37 PM EST ?[facility] ? Cardiac Catheterization/Intervention Report ? Patient Name: Korey Montoya Kyrie. ? Procedure Date: 07/31/2024 ? A #: [id number] ? Primary Physician: Maldonado Luis ? Case #: [id number] ? File Name: [id number] ? Catheterization Order Number: [id number] ? [facility] ? Final Report [place], [place] ? Patient Name: ? Korey Mittal. Jan ?ID#: ?[id number] ? : ?1950 ? Procedure Date: ? [...] ? Comments: ?Impella removed from the right ORACLE APPLICATION CONSULTANT with deployment of Perclose and ?Angioseal. ??Good [...] Procedure Note Maldonado Luis MD - 08/01/2024 [facility] Cardiac Catheterization/Intervention Report Patient Name: Korey Montoya Procedure Date: 07/31/2024 A #: [id number] Primary Physician: Maldonado Luis Case #: [id number] File Name: [id number] Catheterization Order Number: [id number] [facility] FinalReport [place], [place] Patient Name: Korey Montoya ID#:[id number] :1950 Procedure Date: July 31, 2024 Case [...] as ASA Class IV. The [facility] clinical frailtyscale is 4: Vulnerable. Diagnostic [...] procedures. Comments: Impella removed from the right ORACLE APPLICATION CONSULTANT with deployment of Perclose and Angioseal. Good [...] * POC, GLUCOSE (07/31/2024 11:04 AM EST) [facility] Glucometer, POC 82 65 - 199 mg/dL 07/31/2024 11:04 AM [facility] Comment:Supplemental ranges: <140 mg/dL before meals <180 mg/dL all other times of the day. Blood CAPILLARY BLOOD / Unknown 07/31/2024 11:04 AM EST 07/31/2024 11:04 AM EST Krystal Parker MD POINT OF CARE TEST O RDERABLES [facility] [place] [address] * (ABNORMAL) Blood Gas, Arterial POC (07/31/2024 8:29 AM EST) pH, Arterial 7.48(H) 7.35 - 7.45 07/31/2024 8:30 AM [facility] PCO2, Arterial 29(L) 35 - 45 mmHg 07/31/2024 8:30 AM [facility] PO2, Arterial 71(L) 85 [...] O RDERABLES [facility] [place] [address] * POC, GLUCOSE (07/31/2024 7:47 AM EST) Glucometer, POC 82 65 - 199 mg/dL 07/31/2024 7:53 AM [facility] Comment:Supplemental ranges: <140 mg/dL before meals <180 mg/dL all other times of the day. Blood CAPILLARY BLOOD / Unknown 07/31/2024 7:47 AM EST 07/31/2024 7:53 AM EST Krystal Parker MD POINT OF CARE TEST O RDERABLES [facility] [place] [address] * (ABNORMAL) CBC (with Diff) (07/31/2024 1:08 AM EST) White Blood Cell 10.25(H) 4.00 - 9.50 x10(3)/mc L 07/31/2024 1:28 AM [facility] Red Blood Cell 4.13(L) 4.58 - 5.54 x10(6)/mc L 07/31/2024 1:28 AM [facility] Hemoglobin 11.2(L) 13.7 - 16.5 g/dL 07/31/2024 1:28 AM [facility] Hematocrit 33.9(L) 40.5 - 48.5 % 07/31/2024 1:28 AM [facility] Mean Cell Volume 82.1(L) 82.9 - 93.1 fL 07/31/2024 1:28 AM [facility] Mean Cell Hemoglobin 27.1(L) 27.5 - 32.1 pg 07/31/2024 1:28 AM [facility] Mean Cell Hemoglobin Concentration 33.0 32.0 - 35.7 g/dL 07/31/2024 1:28 AM [facility] Platelet 109(L) 145 - 357 x10(3)/mc L 07/31/2024 1:28 AM [facility] Mean Platelet Volume 10.4 7.6 - 12.9 fL 07/31/2024 1:28 AM [facility] RDW Standard Deviation 45.1(H) 36.0 - 45.0 fL 07/31/2024 1:28 AM [facility] RDW coefficient of variation 15.1(H) 11.4 - 13.8 % 07/31/2024 1:28 AM [facility] NRBC% auto 0.0 % 07/31/2024 1:28 AM [facility] NRBC Absolute <0.01 <0.01 x10(3)/mc L 07/31/2024 1:28 AM [facility] Neutrophil % 79.7 % 07/31/2024 1:28 AM [facility] Neutrophil Absolute (ANC) - Automated 8.17(H) 1.70 - 6.10 x10(3)/mc L 07/31/2024 1:28 AM [facility] Lymph % 12.8 % 07/31/2024 1:28 AM [facility] Lymph Absolute 1.31 0.90 - 3.20 x10(3)/mc L 07/31/2024 1:28 AM [facility] Monocyte % 6.9 % 07/31/2024 1:28 AM [facility] Monocyte Absolute 0.71 0.30 - 0.90 x10(3)/mc L 07/31/2024 1:28 AM [facility] Eos % 0.1 % 07/31/2024 1:28 AM [facility] Eos Absolute <0.04 0.00 - 0.40 x10(3)/mc L 07/31/2024 1:28 AM [facility] Basophil % 0.3 % 07/31/2024 1:28 AM [facility] Baso Absolute <0.04 0.00 - 0.10 x10(3)/mc L 07/31/2024 1:28 AM [facility] Immature Gran % 0.2 % 1:28 AM [facility] Immature Gran Absolute <0.04 0.00 - 0.04 x10(3)/mc L 07/31/2024 1:28 AM [facility] Blood VENOUS BLOOD SPECIMEN / Unknown Venipuncture / Unknown 07/31/2024 1:08 AM EST 07/31/2024 1:18 AM EST Bridgette Stauffer MD HEMATOLOGY ORDERABLE S [facility] [place] [address] * Magnesium (07/31/2024 1:08 AM EST) Pathologist [facility] Magnesium 0.89 0.69 - 1.07 mMol/L 07/31/2024 1:46 AM [facility] Blood VENOUS BLOOD SPECIMEN / Unknown Venipuncture / Unknown 07/31/2024 1:08 AM EST 07/31/2024 1:18 AM EST Bridgette Stauffer MD CHEMISTRY ORDERABLES Performing Organization Address City/[facility]/ZIP Co de Phone Number [facility] [place] [address] * (ABNORMAL) Basic Metabolic Panel (07/31/2024 1:08 AM EST) [facility] Glucose 97 65 - 199 mg/dL 07/31/2024 1:46 AM [facility] Comment:Glucose Concentratio n >=200 mg/dL plus symptoms is consistent with Diabetes Mellitus. Blood Urea Nitrogen 11 10 - 20 mg/dL 07/31/2024 1:46 AM [facility] Creatinine 0.96 0.80 - 1.50 mg/dL 07/31/2024 1:46 AM [facility] Sodium 140 135 - 145 mMol/L 07/31/2024 1:46 AM [facility] Potassium 4.1 3.5 - 5.0 mMol/L 07/31/2024 1:46 AM [facility] Chloride 110(H) 98 - 107 mMol/L 07/31/2024 1:46 AM [facility] Carbon Dioxide 24 22 - 31 mMol/L 07/31/2024 1:46 AM [facility] Anion Gap 6 5 - 15 mMol/L 07/31/2024 1:46 AM [facility] Calcium 7.7(L) 8.5 - 10.5 mg/dL 07/31/2024 1:46 AM EST [facility] Est Glomerular Filtration Rate - Male 84 mL/min/1. 73 m?? 07/31/2024 1:46 AM EST [facility] CHEMISTRY ORDERABLES [facility] [place] [address] * (ABNORMAL) Hepatic Function Panel (07/31/2024 1:08 AM EST) Albumin 3.1(L) 3.2 - 5.2 g/dL 07/31/2024 1:46 AM EST [facility] Aspartate Aminotransferase 192(H) <=39 unit/L 07/31/2024 1:46 AM EST [facility] Alanine Aminotransferase 59(H) 0 - 55 unit/L 07/31/2024 1:46 AM EST [facility] Alkaline Phosphatase 46 40 - 130 unit/L 07/31/2024 1:46 AM EST [facility] Bilirubin, Total 0.4 <=1.3 mg/dL 07/31/2024 1:46 AM EST [facility] Bilirubin, Direct <0.2 0.0 - 0.3 mg/dL 07/31/2024 1:46 AM EST [facility] Protein, Total 5.0(L) 6.1 - 8.0 g/dL 07/31/2024 1:46 AM EST [facility] Blood VENOUS BLOOD SPECIMEN / Unknown Venipuncture / Unknown 07/31/2024 1:08 AM EST 07/31/2024 1:18 AM EST Krystal Parker MD CHEMISTRY ORDERABLES Performing Organization Address City/[facility]/ZIP Co de Phone Number [facility] [place] [address] * POC, GLUCOSE (07/30/2024 8:03 PM EST) Glucometer, POC 86 65 - 199 mg/dL 07/30/2024 8:03 PM EST [facility] Comment:Supplemental ranges: <140 mg/dL before meals <180 mg/dL all other times of the day. Blood CAPILLARY BLOOD / Unknown 07/30/2024 8:03 PM EST 07/30/2024 8:03 PM EST Krystal Parker MD POINT OF CARE TEST O RDERABLES Performing Organization Address [facility] Co de Phone Number [facility] [place] [address] * Potassium (07/30/2024 8:03 PM EST) Potassium 3.8 3.5 - 5.0 mMol/L 07/30/2024 9:13 PM EST [facility] Blood VENOUS BLOOD SPECIMEN / Unknown Venipuncture / Unknown 07/30/2024 8:03 PM EST 07/30/2024 8:22 PM EST Aubree Silverio MD CHEMISTRY ORDERABL ES Performing Organization Address [facility] Co de Phone Number [facility] [place] [address] * POC, GLUCOSE (07/30/2024 6:23 PM EST) [...] Address City/[facility]/ZIP Co de Phone Number [facility] [place] [address] * POC, GLUCOSE (07/30/2024 5:08 PM EST) Glucometer, POC 78 65 - 199 mg/dL 07/30/2024 5:08 PM EST [facility] Comment:Supplemental ranges: <140 mg/dL before meals <180 mg/dL all other times of the day. Blood CAPILLARY BLOOD / Unknown 07/30/2024 5:08 PM EST 07/30/2024 5:08 PM EST Krystal Parker MD POINT OF CARE TEST O RDERABLES Performing Organization Address [facility]/ZIP Co de Phone Number [facility] [place] [address] * (ABNORMAL) Phosphorus (07/30/2024 3:08 PM EST) Phosphorus 2.1(L) 2.5 - 4.5 mg/dL 07/30/2024 3:58 PM EST [facility] Blood VENOUS BLOOD SPECIMEN / Unknown Venipuncture / Unknown 07/30/2024 3:08 PM EST 07/30/2024 3:12 PM EST Aubree Silverio MD CHEMISTRY ORDERABL ES Performing Organization Address City/[facility]/ZIP Co de Phone Number [facility] [place] [address] * Magnesium (07/30/2024 3:08 PM EST) Magnesium 0.90 0.69 - 1.07 mMol/L 07/30/2024 3:58 PM EST [facility] Blood VENOUS BLOOD SPECIMEN / Unknown Venipuncture / Unknown 07/30/2024 3:08 PM EST 07/30/2024 3:12 PM EST Aubree Silverio MD CHEMISTRY ORDERABL ES [facility] [place] [address] * (ABNORMAL) Basic Metabolic Panel (07/30/2024 3:08 PM EST) Pathologist [facility] Glucose 105 65 - 199 mg/dL 07/30/2024 [...] - 107 mMol/L 07/30/2024 4:17 PM EST [facility] Carbon Dioxide 21(L) 22 - 31 mMol/L 07/30/2024 4:17 PM EST [facility] Anion Gap 11 5 - 15 mMol/L 07/30/2024 4:17 PM EST [facility] Calcium 7.9(L) 8.5 - 10.5 mg/dL 07/30/2024 4:17 PM EST [facility] Est Glomerular Filtration Rate - Male 79 mL/min/1. 73 m?? 07/30/2024 4:17 PM EST [facility] MD CHEMISTRY ORDERABL ES Performing Organization Address City/State/[facility] Co de Phone Number [facility] [place] [address] * ECHO LMTD W CONTRAST W LMTD SPEC DOPP COLOR DOPP (07/30/2024 11:42 AM EST) Anatomical Region Laterality Modality Cardiac Other 07/30/2024 10:2 2 AM EST Narrative 07/30/2024 12:34 PM EST [address] [place] [address] ? Echocardiogram Report Name: KOREY MONTOYA ? Study Date: 07/30/2024 10:22 AMBP: 124/66 mmHg : 1950 ? Height: 168 cm ? Account: [id number] Age: 74 yrs ? Weight: 65 kg [...] Compared to the overnight study by the quality control inspector fellow the impella position is stable. 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 Procedure Limited - 45688. Image enhancement Definity was used for both [...] Note Kathleen Banda MD - 07/30/2024 [address] [place] [id number] Echocardiogram Report Name: KOREY MONTOYA Kyrie Study Date: 410:22 AMBP: 124/66 mmHg : 1950 Height: 168 cm Account: [id number] Age: 74 yrs Weight: 65 kg Gender: [...] Compared to the overnight study by the quality control inspector fellow the impella positionis stable. The global left ventricular systolic function has improvedpredominantly via recruitment outside the LAD territory which remains akinetic. Procedure Limited - 27155. Image enhancement Definity was used for both [...] - 199 mg/dL 07/30/2024 11:17 AM [facility] Comment:Supplemental ranges: <140 mg/dL before meals <180 mg/dL all other times of the day. Blood CAPILLARY BLOOD / Unknown 07/30/2024 11:17 AM EST 07/30/2024 11:17 AM EST Aubree Silverio MD POINT OF CARE TEST ORDERABLES [facility] [place] [address] * (ABNORMAL) Blood Gas, Arterial POC (07/30/2024 8:16 AM EST) Pathologist [facility] pH, Arterial 7.44 7.35 - 7.45 07/30/2024 8:17 AM [facility] PCO2, Arterial 29(L) 35 - 45 mmHg 07/30/2024 8:17 AM [facility] PO2, Arterial 109(H) 85 - 104 mmHg 07/30/2024 8:17 AM [facility] Bicarbonate, Arterial 19.4(L) 20.0 - 26.0 mmol/L 07/30/2024 8:17 AM [facility] Base Excess, Arterial -4.7(L) -3.0 - 3.0 mmol/L 07/30/2024 8:17 AM [facility] Hemoglobin, Arterial 12.2(L) 13.7 - 16.5 g/dL 07/30/2024 8:17 AM [facility] Oxyhemoglobin, Arterial 97.1(H) 94.0 - 97.0 % 07/30/2024 8:17 AM [facility] Carboxyhemoglob in, Arterial 1.0 % 07/30/2024 8:17 AM [facility] Comment: Nonsmokers: 0.5-1.5% COHB ?? Smokers: Variable ??but usually less than 10% ?? Toxic: 20-30% COHB ?? Lethal: Greater than 60% COHB Methemoglobin, Arterial 0.1 <=1.5 % 07/30/2024 8:17 AM [facility] Sodium, Arterial 132(L) 135 - 145 mmol/L 07/30/2024 8:17 AM [facility] Potassium, Arterial 3.9 3.5 - 5.0 mmol/L 07/30/2024 8:17 AM [facility] Chloride, Arterial 105 98 - 107 mmol/L 07/30/2024 8:17 AM [facility] Lactate, Arterial 1.2 0.5 - 2.2 mmol/L 07/30/2024 8:17 AM [facility] Fraction of Inspired Oxygen 21 % 07/30/2024 8:17 AM [facility] PF Ratio 519 Ratio 07/30/2024 8:17 AM [facility] Comment:PF ratio calculated using the non-temperature corrected pO2 result. IONIZED CALCIUM, ARTERIAL 1.15 1.15 - 1.33 mmol/L 07/30/2024 8:17 AM [facility] Blood ARTERIAL BLOOD / Unknown 07/30/2024 8:16 AM EST 07/30/2024 8:17 AM EST Aubree Silverio MD POINT OF CARE TEST ORDERABLES [facility] [place] [address] * (ABNORMAL) Troponin - Single (07/30/2024 8:09 AM EST) Troponin-T, High Sensitivity 8,651(H) <=22 ng/L 07/30/2024 9:06 AM [facility] Comment: This patient's troponin [...] troponin value can be found in the [facility] Test Catalog Troponin - [email or web address]/catalogs/[email or web address]/files/[email or web address] Reference: Fourth [place] Definition of Myocardial Infarction. Journal of the [place] [employer] 2018;72:1456-1943 Blood VENOUS BLOOD SPECIMEN / Unknown Venipuncture / Unknown 07/30/2024 8:09 AM EST 07/30/2024 8:26 AM EST Aubree Silverio MD CHEMISTRY ORDERABL ES Performing Organization Address [facility] Co de Phone Number [facility] [place] [address] * POC, GLUCOSE (07/30/2024 7:40 AM EST) [...] OF CARE TEST ORDERABLES Performing Organization Address [facility] Co de Phone Number [facility] [place] [address] * (ABNORMAL) CBC (with Diff) (07/30/2024 2:11 AM EST) White Blood Cell 11.25(H) 4.00 - 9.50 x10(3)/mc L 07/30/2024 2:33 AM [facility] Red Blood Cell 4.50(L) 4.58 - 5.54 x10(6)/mc L 07/30/2024 2:33 AM [facility] Hemoglobin 12.2(L) 13.7 - 16.5 g/dL 07/30/2024 2:33 AM [facility] Hematocrit 37.1(L) 40.5 - 48.5 % 07/30/2024 2:33 AM [facility] Mean Cell Volume 82.4(L) 82.9 - 93.1 fL 07/30/2024 2:33 AM [facility] Mean Cell Hemoglobin 27.1(L) 27.5 - 32.1 pg 07/30/2024 2:33 AM [facility] Mean Cell Hemoglobin Concentration 32.9 32.0 - 35.7 g/dL 07/30/2024 2:33 AM [facility] Platelet 166 145 - 357 x10(3)/mc L 07/30/2024 2:33 AM [facility] Mean Platelet Volume 10.6 7.6 - 12.9 fL 07/30/2024 2:33 AM [facility] RDW Standard Deviation 44.6 36.0 - 45.0 fL 07/30/2024 2:33 AM [facility] RDW coefficient of variation 14.6(H) 11.4 - 13.8 % 07/30/2024 2:33 AM [facility] NRBC% auto 0.0 % 07/30/2024 2:33 AM [facility] NRBC Absolute <0.01 <0.01 x10(3)/mc L 07/30/2024 2:33 AM [facility] Neutrophil % 88.9 % 07/30/2024 2:33 AM [facility] Neutrophil Absolute (ANC) - Automated 10.00(H) 1.70 - 6.10 x10(3)/mc L 07/30/2024 2:33 AM EST [facility] Lymph % 5.1 % 07/30/2024 2:33 AM [facility] Lymph Absolute 0.57(L) 0.90 - 3.20 x10(3)/mc L 07/30/2024 2:33 AM EST [facility] Monocyte % 5.4 % 07/30/2024 2:33 AM EST [facility] Monocyte Absolute 0.61 0.30 - 0.90 x10(3)/mc L 07/30/2024 2:33 AM EST [facility] Eos % 0.0 % 07/30/2024 2:33 AM [facility] Eos Absolute <0.04 0.00 - 0.40 x10(3)/mc L 07/30/2024 2:33 AM [facility] Basophil % 0.2 % 07/30/2024 2:33 AM [facility] Baso Absolute <0.04 0.00 - 0.10 x10(3)/mc L 07/30/2024 2:33 AM [facility] Immature Gran % 0.4 % 2:33 AM [facility] Immature Gran Absolute 0.05(H) 0.00 - 0.04 x10(3)/mc L 07/30/2024 2:33 AM [facility] Blood VENOUS BLOOD SPECIMEN / Unknown Venipuncture / Unknown 07/30/2024 2:11 AM EST 07/30/2024 2:22 AM EST Bridgette Stauffer MD HEMATOLOGY ORDERABLE S [facility] [place] [address] * Magnesium (07/30/2024 2:11 AM EST) Magnesium 1.01 0.69 - 1.07 mMol/L 07/30/2024 2:51 AM [facility] Blood VENOUS BLOOD SPECIMEN / Unknown Venipuncture / Unknown 07/30/2024 2:11 AM EST 07/30/2024 2:22 AM EST Bridgette Stauffer MD CHEMISTRY ORDERABLES [facility] [place] [address] * (ABNORMAL) Basic Metabolic Panel (07/30/2024 2:11 AM EST) Glucose 190 65 - 199 mg/dL 07/30/2024 2:51 AM [facility] Comment:Glucose Concentratio n >=200 mg/dL plus symptoms is consistent with Diabetes Mellitus. Blood Urea Nitrogen 15 10 - 20 mg/dL 07/30/2024 2:51 AM [facility] Creatinine 0.88 0.80 - 1.50 mg/dL 07/30/2024 2:51 AM [facility] Sodium 135 135 - 145 mMol/L 07/30/2024 2:51 AM [facility] Potassium 4.9 3.5 - 5.0 mMol/L 07/30/2024 2:51 AM [facility] Chloride 105 98 - 107 mMol/L 07/30/2024 2:51 AM [facility] Carbon Dioxide 19(L) 22 - 31 mMol/L 07/30/2024 2:51 AM [facility] Anion Gap 11 5 - 15 mMol/L 07/30/2024 2:51 AM [facility] Calcium 7.7(L) 8.5 - 10.5 mg/dL 07/30/2024 2:51 AM [facility] Est Glomerular Filtration Rate - Male 91 mL/min/1. 73 m?? 07/30/2024 2:51 AM [facility] Comment: This [...] Stauffer MD CHEMISTRY ORDERABLES Performing Organization Address City/State/[facility] [place] Phone Number [facility] [place] [address] * (ABNORMAL) Cooximetry, POC (07/30/2024 1:00 AM EST) pO2, Coox 28 mmHg 07/30/2024 1:03 AM [facility] Hemoglobin, Coox 12.7(L) 13.7 - 16.5 g/dL 07/30/2024 1:03 AM EST [facility] Oxyhemoglobin, Coox 54.9 % 07/30/2024 1:03 AM [facility] Carboxyhemoglo bin, Coox 1.0 % 07/30/2024 1:03 AM EST [facility] Comment: Nonsmokers: 0.5-1.5% COHB ?? Smokers: Variable ??but usually less than 10% ?? Toxic: 20-30% COHB ?? Lethal: Greater than 60% COHB Methemoglobin, Coox 0.0 <=1.5 % 07/30/2024 1:03 AM EST [facility] Blood (Mixed Venous) 07/30/2024 1:00 AM EST 07/30/2024 1:03 AM EST Aubree Silverio MD POINT OF CARE TEST ORDERABLES [facility] [place] [address] * (ABNORMAL) Blood Gas, Arterial POC (07/30/2024 12:57 AM EST) pH, Arterial 7.38 7.35 - 7.45 07/30/2024 12:58 AM [facility] PCO2, Arterial 34(L) 35 - 45 mmHg 07/30/2024 12:58 AM [facility] PO2, Arterial 141(H) 85 - 104 mmHg 07/30/2024 12:58 AM [facility] Bicarbonate, Arterial 19.5(L) 20.0 - 26.0 mmol/L 07/30/2024 12:58 AM [facility] Base Excess, Arterial -5.6(L) -3.0 - 3.0 mmol/L 07/30/2024 12:58 AM [facility] Hemoglobin, Arterial 13.0(L) 13.7 - 16.5 g/dL 07/30/2024 12:58 AM [facility] Oxyhemoglobin, Arterial 98.4(H) 94.0 - 97.0 % 07/30/2024 12:58 AM [facility] Carboxyhemoglobin , Arterial 0.4 % 07/30/2024 12:58 AM [facility] Comment: Nonsmokers: 0.5-1.5% COHB ?? Smokers: Variable ??but usually less than 10% ?? Toxic: 20-30% COHB ?? Lethal: Greater than 60% COHB Methemoglobin, Arterial 0.1 <=1.5 % 07/30/2024 12:58 AM [facility] Sodium, Arterial 130(L) 135 - 145 mmol/L 07/30/2024 12:58 AM [facility] Potassium, Arterial 4.5 3.5 - 5.0 mmol/L 07/30/2024 12:58 AM [facility] Chloride, Arterial 104 98 - 107 mmol/L 07/30/2024 12:58 AM EST [facility] Lactate, Arterial 1.3 0.5 - 2.2 mmol/L 07/30/2024 12:58 AM EST [facility] Flow Rate 2.0 L/min 07/30/2024 12:58 AM EST [facility] IONIZED CALCIUM, ARTERIAL 1.12(L) 1.15 - 1.33 mmol/L 07/30/2024 12:58 AM EST [facility] Glucose, Arterial 184 65 - 199 mg/dL 07/30/2024 12:58 AM EST [facility] Comment:Glucose Concentratio n >=200 mg/dL plus symptoms is consistent with Diabetes Mellitus. Blood ARTERIAL BLOOD / Unknown 07/30/2024 12:57 AM EST 07/30/2024 12:58 AM EST Aubree Silverio MD POINT OF CARE TEST ORDERABLES Performing Organization Address City/State/[facility] Co de Phone Number [facility] [place] [address] * (ABNORMAL) Troponin - Single (07/29/2024 10:31 [...] troponin value can be found in the [facility] Test Catalog Troponin - [email or web address]/[email or web address] Reference: Fourth [place] Definition of Myocardial Infarction. Journal of the [place] [employer] 2018;72:8578-8479 Blood VENOUS BLOOD SPECIMEN / Unknown Venipuncture / Unknown 07/29/2024 10:31 PM EST 07/29/2024 10:36 PM EST Yrn Velazquez MD CHEMISTRY ORDERABL ES Performing Organization Address [facility]/ZIP Co de Phone Number [facility] [place] [address] * Potassium (07/29/2024 8:11 PM EST) Potassium 4.1 3.5 - 5.0 mMol/L 07/29/2024 8:52 PM EST [facility] Blood VENOUS BLOOD SPECIMEN / Unknown Venipuncture / Unknown 07/29/2024 8:11 PM EST 07/29/2024 8:16 PM EST Aubree Silverio MD CHEMISTRY ORDERABL ES Performing Organization Address City/[facility]/ZIP Co de Phone Number [facility] [place] [address] * (ABNORMAL) Troponin - Single (07/29/2024 8:11 [...] troponin value can be found in the [facility] Laboratory Test Catalog Troponin - https://[email or web address]-.testcatalog.org/catalogs/565/[email or web address] Reference: Fourth [place] Definition of Myocardial Infarction. Journal of the [place] [employer] 2018;72:3403-9017 Blood VENOUS BLOOD SPECIMEN / Unknown Venipuncture / Unknown 07/29/2024 8:11 PM EST 07/29/2024 8:16 PM EST Aubree Silverio MD CHEMISTRY ORDERABL ES Performing Organization Address City/[facility]/ZIP Co de Phone Number [facility] [place] [address] * (ABNORMAL) Phosphorus (07/29/2024 8:11 PM EST) Phosphorus 2.1(L) 2.5 - 4.5 mg/dL 07/29/2024 8:52 PM EST [facility] Blood VENOUS BLOOD SPECIMEN / Unknown Venipuncture / Unknown 07/29/2024 8:11 PM EST 07/29/2024 8:16 PM EST Aubree Silverio MD CHEMISTRY ORDERABL ES [facility] [place] [address] * POC, GLUCOSE (07/29/2024 8:09 PM EST) [...] Address City/[facility]/ZIP Co de Phone Number [facility] [place] [address] * ABORH RECHECK (07/29/2024 6:43 PM EST) Pathologist [facility] ABORH Recheck AB POSITIVE 07/29/2024 10:13 PM EST [facility] Blood VENOUS BLOOD SPECIMEN / Unknown Venipuncture / Unknown 07/29/2024 6:43 PM EST 07/29/2024 7:15 PM EST Aubree Silverio MD BLOOD BANK LAB ORD ERABLES Performing Organization Address City/[facility] Co de Phone Number [facility] [place] [address] * POC, GLUCOSE (07/29/2024 5:57 PM EST) [facility] Glucometer, POC 166 65 - 199 mg/dL 07/29/2024 5:57 PM EST [facility] Comment:Supplemental ranges: <140 mg/dL before meals <180 mg/dL all other times of the day. Blood CAPILLARY BLOOD / Unknown 07/29/2024 5:57 PM EST 07/29/2024 5:57 PM EST Aubree Silverio MD POINT OF CARE TEST ORDERABLES Performing Organization Address City/[facility]/ZIP Co de Phone Number [facility] [place] [address] * Type and screen ([facility]/MAGALIE) (07/29/2024 5:56 PM EST) Pathologist [facility], [...] BLOOD BANK LABORATORY T&S only valid at [facility] 07/29/2024 9:44 PM EST [facility] BLOOD BANK LABORATORY Blood VENOUS BLOOD SPECIMEN / Unknown Venipuncture / Unknown 07/29/2024 5:56 PM EST 07/29/2024 6:07 PM EST Narrative [facility] BLOOD BANK LABORATORY - 07/29/2024 9:44 PM EST This Type and Screen result is only valid at the [facility] Aubree Silverio MD BLOOD BANK LAB ORD ERABLES [facility] [place] [address] * (ABNORMAL) Troponin - Single (07/29/2024 4:52 PM EST) [facility] Troponin-T, High Sensitivity >10,000(H ) <=22 [...] troponin value can be found in the [facility] Laboratory Test Catalog Troponin - [email or web address]/catalogs/565/[email or web address]/[email or web address] Reference: Fourth [place] Definition of Myocardial Infarction. Journal of the [place] College of Cardiology 2018;72:1957-5386 Blood VENOUS BLOOD SPECIMEN / Unknown Venipuncture / Unknown 07/29/2024 4:52 PM EST 07/29/2024 4:57 PM EST Aubree Silverio MD CHEMISTRY ORDERABL ES Performing Organization Address City/[facility]/ZIP Co de Phone Number [facility] [place] [address] * EKG 12 Lead (07/29/2024 4:21 PM EST) Ventricular rate 72 BPM MUSE SYSTEM Atrial Rate 72 BPM MUSE SYSTEM P-R Interval 168 ms MUSE SYSTEM QRS Duration 82 ms MUSE SYSTEM Q-T Interval 392 ms MUSE SYSTEM QTC Calculated (Bezet) 429 ms MUSE SYSTEM Calculated P Ransom 71 degrees MUSE SYSTEM Calculated R Ransom 77 degrees MUSE SYSTEM Calculated T Ransom 28 degrees MUSE SYSTEM INTERPRETATION Sinus rhythm with Premature supraventricular complexes and Occasional Premature ventricular complexes Low voltage QRS 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) Lateral injury pattern ACUTE AR / STEMI Abnormal ECG When compared with ECG of 29-JUL-2024 13:43, (unconfirmed) Serial changes of evolving Anteroseptal infarct Present Confirmed by MD Marcus, Roverto (1960) on 07/31/2024 5:30:06 AM MUSE SYSTEM 07/29/2024 4:21 PM EST 07/31/2024 5:30 AM EST Aubree Silverio MD ECG ORDERABLES Performing Organization Address City/[facility]/ZIP Co de Phone Number MUSE SYSTEM * (ABNORMAL) Blood Gas, Arterial POC (07/29/2024 4:21 PM EST) pH, Arterial 7.37 7.35 - 7.45 07/29/2024 4:22 PM EST [facility] PCO2, Arterial 36 35 - 45 mmHg 07/29/2024 4:22 PM EST [facility] PO2, Arterial 71(L) 85 - 104 mmHg 07/29/2024 4:22 PM [facility] Bicarbonate, Arterial 20.4 20.0 - 26.0 mmol/L 07/29/2024 4:22 PM [facility] Base Excess, Arterial -4.8(L) -3.0 - 3.0 mmol/L 07/29/2024 4:22 PM [facility] Hemoglobin, Arterial 12.2(L) 13.7 - 16.5 g/dL 07/29/2024 4:22 PM [facility] Oxyhemoglobin, Arterial 93.8(L) 94.0 - 97.0 % 07/29/2024 4:22 PM [facility] Carboxyhemoglobin , Arterial 0.5 % 07/29/2024 4:22 PM [facility] Comment: Nonsmokers: 0.5-1.5% COHB ?? Smokers: Variable ??but usually less than 10% ?? Toxic: 20-30% COHB ?? Lethal: Greater than 60% COHB Methemoglobin, Arterial 0.3 <=1.5 % 07/29/2024 4:22 PM [facility] Sodium, Arterial 134(L) 135 - 145 mmol/L 07/29/2024 4:22 PM [facility] Potassium, Arterial 4.2 3.5 - 5.0 mmol/L 07/29/2024 4:22 PM [facility] Chloride, Arterial 107 98 - 107 mmol/L 07/29/2024 4:22 PM [facility] Lactate, Arterial 1.5 0.5 - 2.2 mmol/L 07/29/2024 4:22 PM [facility] Fraction of Inspired Oxygen 21 % 07/29/2024 4:22 PM [facility] PF Ratio 338 Ratio 07/29/2024 4:22 PM [facility] Comment:PF ratio calculated using the non-temperature corrected pO2 result. IONIZED CALCIUM, ARTERIAL 1.12(L) 1.15 - 1.33 mmol/L 07/29/2024 4:22 PM EST [facility] Glucose, Arterial 181 65 - 199 mg/dL 07/29/2024 4:22 PM EST [facility] Comment:Glucose Concentratio n >=200 mg/dL plus symptoms is consistent with Diabetes Mellitus. Blood ARTERIAL BLOOD / Unknown 07/29/2024 4:21 PM EST 07/29/2024 4:22 PM EST Aubree Silverio MD POINT OF CARE TEST ORDERABLES [facility] [place] [address] * POC, GLUCOSE (07/29/2024 4:19 PM EST) Glucometer, POC 185 65 - 199 mg/dL 07/29/2024 4:19 PM EST [facility] Comment:Supplemental ranges: <140 mg/dL before meals <180 mg/dL all other times of the day. Blood CAPILLARY BLOOD / Unknown 07/29/2024 4:19 PM EST 07/29/2024 4:19 PM EST Aubree Silverio MD POINT OF CARE TEST ORDERABLES Performing Organization Address [facility]/ZIP Co de Phone Number [facility] [place] [address] * Blood culture (07/29/2024 4:08 PM EST) Blood Culture No growth at 120 hours 08/03/2024 5:01 PM EST [facility] Blood VENOUS BLOOD SPECIMEN / Unknown Venipuncture / Unknown 07/29/2024 4:08 PM EST 07/29/2024 4:15 PM EST Aubree Silverio MD MICROBIOLOGY - BLO OD ORDERABLES Performing Organization Address City/[facility]/ZIP Co de Phone Number [facility] [place] [address] * Blood culture (07/29/2024 4:08 PM EST) Blood Culture No growth at 120 hours 08/03/2024 5:01 PM EST [facility] Blood VENOUS BLOOD SPECIMEN / Unknown Venipuncture / Unknown 07/29/2024 4:08 PM EST 07/29/2024 4:26 PM EST Aubree Silverio MD MICROBIOLOGY - BLO OD ORDERABLES [facility] [place] [address] * XR Chest One View (07/29/2024 2:30 PM EST) Pathologist [employer] WORKSTATION ID [id number] RAD Anatomical Region Laterality Modality Chest N/A [...] questions please contact the health patient care coordinator that requested your imaging first. ? Narrative [...] have questions please contactthe health patient care coordinator that requested your imaging first. Electronically signed by: Chris Candelaria MD, [facility]([phone]), at 07/29/2024 3:21 PM Vahe Marvin MD IMG DX ORDERABLES * (ABNORMAL) APTT (07/29/2024 2:03 PM EST) Partial Thromboplastin Time >160(HHH) 25 - 37 sec 07/29/2024 2:56 PM EST [facility] Blood VENOUS BLOOD SPECIMEN / Unknown Venipuncture / Unknown 07/29/2024 2:03 PM EST 07/29/2024 2:13 PM EST Vahe Marvin MD HEMATOLOGY ORDERABLE S [facility] [place] [address] * (ABNORMAL) Prothrombin Time (07/29/2024 2:03 PM [...] Address City/[facility]/ZIP Co de Phone Number [facility] [place] [address] * CRP, acute inflammation (07/29/2024 2:03 PM EST) [facility] C-Reactive Protein <3.0 <=4.9 mg/L 07/29/2024 2:52 PM EST [facility] Blood VENOUS BLOOD SPECIMEN / Unknown Venipuncture / Unknown 07/29/2024 2:03 PM EST 07/29/2024 2:14 PM EST Vahe Marvin MD CHEMISTRY ORDERABLES [facility] [place] [address] * Lipid Panel (Reflex Direct LDL) (07/29/2024 2:03 PM EST) Pathologist [facility] Cholesterol, Total 133 mg/dL 07/29/2024 2:52 PM EST [facility] Comment: Desirable: < 200 mg/dL Borderline High: 200 - 239 mg/dL High: > or = 240 mg/dL Triglyceride 45 mg/dL 07/29/2024 2:52 PM [facility] Comment: Normal: <150 mg/dL Borderline High: 150-199 mg/dL High: 200-499 mg/dL Very High: > or =500 mg/dL HDL Cholesterol 58 mg/dL 2:52 PM [facility] [...] EST 07/29/2024 2:14 PM EST [facility] LABORATORY - 07/29/2024 2:52 PM EST [...] Address City/[facility]/ZIP Co de Phone Number [facility] [place] [address] * TSH [place] (07/29/2024 2:03 PM EST) Thyroid Stimulating Hormone 0.70 0.27 - 4.20 mcIU/mL 07/29/2024 2:52 PM EST [facility] Blood VENOUS BLOOD SPECIMEN / Unknown Venipuncture / Unknown 07/29/2024 2:03 PM EST 07/29/2024 2:14 PM EST Vahe Marvin MD CHEMISTRY ORDERABLES Performing Organization Address City/[facility]/ZIP Co de Phone Number [facility] [place] [address] * Hemoglobin A1c (07/29/2024 2:03 PM EST) [facility] Hemoglobin A1c 5.3 4.3 - 5.6 [...] red blood cell turnover may not be compliance representative dealer of glycemic control. Reference Interval: 4.3 - [...] into estimated average glucose values. ??Diabetes Care 2008:31(8):6374-5532. Additional resources are available on the ADA website (diabetes.org). Vahe Marvin MD CHEMISTRY ORDERABLES Performing Organization Address City/[facility]/ZIP Co de Phone Number [facility] [place] [address] * (ABNORMAL) CBC (with Diff) (07/29/2024 2:03 PM EST) [facility] White Blood Cell 19.50(H) 4.00 - 9.50 x10(3)/mc L 07/29/2024 2:18 PM [facility] Red Blood Cell 4.81 4.58 - 5.54 x10(6)/mc L 07/29/2024 2:18 PM [facility] Hemoglobin 13.1(L) 13.7 - 16.5 g/dL 07/29/2024 2:18 PM [facility] Hematocrit 40.1(L) 40.5 - 48.5 % 07/29/2024 2:18 PM [facility] Mean Cell Volume 83.4 82.9 - 93.1 fL 07/29/2024 2:18 PM [facility] Mean Cell Hemoglobin 27.2(L) 27.5 - 32.1 pg 07/29/2024 2:18 PM [facility] Mean Cell Hemoglobin Concentration 32.7 32.0 - 35.7 g/dL 07/29/2024 2:18 PM [facility] Platelet 236 145 - 357 x10(3)/mc L 07/29/2024 2:18 PM [facility] Mean Platelet Volume 10.6 7.6 - 12.9 fL 07/29/2024 2:18 PM [facility] RDW Standard Deviation 43.7 36.0 - 45.0 fL 07/29/2024 2:18 PM [facility] RDW coefficient of variation 14.3(H) 11.4 - 13.8 % 07/29/2024 2:18 PM [facility] NRBC% auto 0.0 % 07/29/2024 2:18 PM [facility] NRBC Absolute <0.01 <0.01 x10(3)/mc L 07/29/2024 2:18 PM [facility] Neutrophil % 93.6 % 07/29/2024 2:18 PM [facility] Neutrophil Absolute (ANC) - Automated 18.28(H) 1.70 - 6.10 x10(3)/mc L 07/29/2024 2:18 PM EST [facility] Lymph % 2.7 % 07/29/2024 2:18 PM EST [facility] Lymph Absolute 0.52(L) 0.90 - 3.20 x10(3)/mc L 07/29/2024 2:18 PM EST [facility] Monocyte % 2.9 % 07/29/2024 2:18 PM EST [facility] Monocyte Absolute 0.56 0.30 - 0.90 x10(3)/mc L 07/29/2024 2:18 PM EST [facility] Eos % 0.0 % 07/29/2024 2:18 PM [facility] Eos Absolute <0.04 0.00 - 0.40 x10(3)/mc L 07/29/2024 2:18 PM [facility] Basophil % 0.3 % 07/29/2024 2:18 PM [facility] Baso Absolute 0.05 0.00 - 0.10 x10(3)/mc L 07/29/2024 2:18 PM EST [facility] Immature Gran % 0.5 % 2:18 PM [facility] Immature Gran Absolute 0.09(H) 0.00 - 0.04 x10(3)/mc L 07/29/2024 2:18 PM [facility] Blood VENOUS BLOOD SPECIMEN / Unknown Venipuncture / Unknown 07/29/2024 2:03 PM EST 07/29/2024 2:13 PM EST Vahe Marvin MD HEMATOLOGY ORDERABLE S [facility] [place] [address] * Phosphorus (07/29/2024 2:03 PM EST) Phosphorus 2.5 2.5 - 4.5 mg/dL 07/29/2024 2:52 PM [facility] Blood VENOUS BLOOD SPECIMEN / Unknown Venipuncture / Unknown 07/29/2024 2:03 PM EST 07/29/2024 2:14 PM EST Vahe Marvin MD CHEMISTRY ORDERABLES Performing Organization Address [facility] Co de Phone Number [facility] [place] [address] * Magnesium (07/29/2024 2:03 PM EST) Magnesium 0.70 0.69 - 1.07 mMol/L 07/29/2024 2:52 PM EST [facility] Blood VENOUS BLOOD SPECIMEN / Unknown Venipuncture / Unknown 07/29/2024 2:03 PM EST 07/29/2024 2:14 PM EST Vahe Marvin MD CHEMISTRY ORDERABLES Performing Organization Address [facility] Co de Phone Number [facility] [place] [address] * (ABNORMAL) Comprehensive metabolic panel (07/29/2024 2:03 PM EST) Glucose 243(H) 65 - 199 mg/dL 07/29/2024 3:11 PM [facility] Comment:Glucose Concentratio n >=200 mg/dL plus symptoms is consistent with Diabetes Mellitus. Blood Urea Nitrogen 13 10 - 20 mg/dL 07/29/2024 3:11 PM [facility] Creatinine 0.88 0.80 - 1.50 mg/dL 07/29/2024 3:11 PM [facility] Sodium 138 [...] CHEMISTRY ORDERABLES [facility] [place] [address] * (ABNORMAL) Troponin - Single (07/29/2024 2:03 [...] troponin value can be found in the [facility] Test Catalog Troponin - [email or web address].org/catalogs/565/files/62223 Reference: Fourth [place] Definition of Myocardial Infarction. Journal of the [place] College of Cardiology 2018;72:9919-2990 Blood VENOUS BLOOD SPECIMEN / Unknown Venipuncture / Unknown 07/29/2024 2:03 PM EST 07/29/2024 2:14 PM EST Vahe Marvin MD CHEMISTRY ORDERABLES [facility] [place] [address] * (ABNORMAL) Blood Gas, Venous POC (07/29/2024 2:01 PM EST) pH, Venous 7.30(L) 7.32 - 7.42 07/29/2024 2:02 PM [facility] PCO2, Venous 42 38 [...] CARE TEST O RDERABLES Performing Organization Address [facility]/State/[facility] Co de Phone Number [facility] [place] [address] * CARDIAC CATHETERIZATION (07/29/2024 1:20 PM EST) Anatomical Region Laterality Modality Other Narrative 07/29/2024 2:02 PM EST ?[facility] ? Cardiac Catheterization/Intervention Report ? Patient Name: Korey Montoya Kyrie. ? Procedure Date: 07/29/2024 ? A #: [id number] ? Primary Physician: Vahe Marvin ? Case #: [id number] ? File Name: [id number] ? Catheterization Order Number: [id number] ? [facility] ? Final Report [place], [place] ? Patient Name: ? Korey Mittal. Jan ?ID#: ?[id number] ? : ?1950 ? Procedure Date: ? [...] was Emergent. The indication for ?the construction laborer visit is ACS less than or [...] 3.5 guiding catheter and a 3.5 Fr Costilla Eye [place] [address] ??20 Mhz using ?Manual pullback. ??Imaging [...] ? A premounted 3.00 x 22 mm [place] (LOW) was deployed ? with a maximum [...] atmospheres. ??A premounted 3.00 x 08 mm [place] (LOW) ? was deployed with a maximum [...] administered prior to arrival in the construction laborer. ?Recommended anti-platelet/anti-thrombotic regimen: ?Start aspirin 81 mg daily now and continue for 12 months then stop. ?Start clopidogrel 75 mg daily now and continue for indefinitely. ?These recommendations are made at the time of the intervention. Patient ?and provider preferences or a changing clinical situation may require ?modification of this regimen. Consult [facility] Interventional Cardiology for ?questions. [...] able ?to start weaning his inotropes/vasopressors. A [place] Colette catheter was ?placed demonstrating improvement in his hemodynamics and the impella site ?was perclosed and hemostatic gauze was applied with excellent result. ?WIll transfer to the [facility] for further management. ?The attending [...] ventricular assist device insertion, right heart ?catheterization, [place] (flow directed cath) insertion, access site ?angiography, vascular ultrasound, venous line / sheath insert and vascular ?closure device. ? Vahe S Shavonne, M.D. ? Electronically Signed by: Vahe S Shavonne, M.D. ? Report Finalized: 07/29/2024 ??13:55 ? Report Last Ammended: 09/20/2024 ??15:21 ? Procedure Note Vahe Marvin MD - 09/20/2024 [facility] Cardiac Catheterization/Intervention Report Patient Name: Korey Montoya Procedure Date: 07/29/2024 A #: [id number] Primary Physician: Vahe Marvin Case #: [id number] File Name: [id number] Catheterization Order Number: [id number] [facility] FinalReport [place], [place] Patient Name: Korey Montoya ID#:[id number] :1950 Procedure Date: July 29, 2024 Case [...] as ASA Class IV. The [facility] clinical frailtyscale is 4: Vulnerable. Diagnostic Tests: Electrocardiography: EKG was assessed by ECG. EKG was Abnormal. EKG showed STDeviation >= 0.5 mm. Medications Prior to Procedure: Angiotensin II Receptor Elvis and Statin. Indications for Diagnostic Cath: The priority of the diagnostic procedure was Emergent. Theindication for the construction laborer visit is ACS less than or [...] 3.5 guiding catheter and a 3.5 Fr [place] [address] 20 Mhzusing Manual pullback. Imaging was [...] The priority for the procedure was Emergent.The [facility] indication for the procedure was STEMI-Immediate PCI [...] The lesion was predilated with a 2.00mm [id number] MM balloon with a maximum inflation pressure of 12atmospheres. A premounted 3.00 x 22 mm [place] (LOW) wasdeployed with a maximum inflation pressure [...] atmospheres. A premounted 3.00 x 08 mm [place](LOW) was deployed with a maximum inflation pressure [...] administered prior to arrival in the construction laborer. Recommended anti-platelet/anti-thrombotic regimen: Start aspirin 81 mg daily now and continue for 12 months then stop. Start clopidogrel 75 mg daily now and continue for indefinitely. These recommendations are made at the time of the intervention.Patient and provider preferences or a changing clinical situation mayrequire modification of this regimen. Consult [facility] Interventional Cardiologyfor questions. The [...] wereable to start weaning his inotropes/vasopressors. A [place] Colette catheterwas placed demonstrating improvement in his [...] ventricular assist device insertion, right heart catheterization, [place] (flow directed cath) insertion, access site angiography, vascular ultrasound, venous line / sheath insert andvascular closure device. Vahe Marvin M.D. Electronically Signed by: Vahe Marvin M.D. Report Finalized: 07/29/2024 13:55 Report Last Ammended: 09/20/2024 15:21 Vahe Marvin MD CARDIAC CATH ORDERAB LES * (ABNORMAL) BLOOD GAS, POC (07/29/2024 12:46 PM EST) Sodium, POC 139 135 - 145 mmol/L 07/30/2024 7:30 AM EST [facility] Potassium, POC 3.4(L) 3.5 - 5.0 mmol/L 07/30/2024 7:30 AM EST [facility] pH, POC 7.33(L) 7.35 - 7.45 07/30/2024 7:30 AM EST [facility] Ionized Calcium, POC 1.13(L) 1.15 [...] - 26.0 mmol/L 07/30/2024 7:30 AM [facility] Carbon Dioxide, POC 21(L) 22 - 31 mmol/L 07/30/2024 7:30 AM [facility] Blood VENOUS BLOOD SPECIMEN / Unknown 07/29/2024 12:46 PM EST 07/30/2024 7:30 AM EST Vahe Marvin MD POINT OF CARE TEST O RDERABLES [facility] [place] [address] * (ABNORMAL) BLOOD GAS, POC (07/29/2024 12:12 PM EST) Sodium, POC 135 135 - 145 mmol/L 07/30/2024 7:30 AM [facility] Potassium, POC 3.8 3.5 - 5.0 mmol/L 07/30/2024 7:30 AM [facility] pH, POC 7.27(LLL) 7.35 - 7.45 07/30/2024 7:30 AM [facility] Ionized Calcium, POC 1.14(L) 1.15 - 1.33 mmol/L 07/30/2024 7:30 AM [facility] pCO2, POC 43 35 - 45 mmHg 07/30/2024 7:30 AM [facility] pO2, POC 131(H) 85 - 104 mmHg 07/30/2024 7:30 AM [facility] Base Excess, POC -7.0(L) -3.0 - 3.0 mmol/L 07/30/2024 7:30 AM [facility] Hematocrit, POC 36.0(L) 40.5 - 48.5 %PCV 07/30/2024 7:30 AM [facility] Hemoglobin, POC 12.2(L) 13.7 - 16.5 g/dL 07/30/2024 7:30 AM [facility] Comment:The calculation of h emoglobin from hematocrit assumes a normal MCHC. Bicarbonate, POC 19.7(L) 20.0 - 26.0 mmol/L 07/30/2024 7:30 AM [facility] Carbon Dioxide, POC 21(L) 22 - 31 mmol/L 07/30/2024 7:30 AM [facility] Blood VENOUS BLOOD SPECIMEN / Unknown 07/29/2024 12:12 PM EST 07/30/2024 7:30 AM EST Vahe Marvin MD POINT OF CARE TEST O RDERABLES [facility] [place] [address] documented in this encounter Visit Diagnoses Not [...] 100 mL infusion CONTINUOUS PRN, Starting on 07/29/24 at 1240, Until Tue07/30/24 at 1307, Intra-Operative [...] RN) 1700 (Due) 1623 (Given - Provider: Toyna Watson, RENEA) clopidogreL (Plavix) tablet 75 mg [...] Discontinued, Routine 1352 (Given - Provider: Parvin Strauss, RENEA)2024 (Given - Provider: Edouard Wisdom RN) spironolactone [...] tablet., Routine 1054 (Given - Provider: Parvin E Baukus, RN) Linked Groups Order Group 1: glucose [...] Routine documented in this encounter Care Teams Priest Relationship Specialty Start Date End Date Yoel Artis APRN [address] [place] [address] PCP - General Internal Medicine 11/18/22 07/29/24 documented as of this encounter
--- OUTSIDE RECORDS SUMMARY | 2024-10-03 10:56 | XMS_ITS | Encounter Summary ---
Author Organization Formerly [facility] [place] [address] Care Team Providers Care Wellness Specialist Name Role Phone Yoel Artis APRN Primary Care Provider Reason for Referral * Consultation (Routine) - Closed Specialty Diagnoses / Procedures Referred By Theodore muro Referred To Contact Gastroenterology Diagnoses Proctalgia fugax Fecal smearing Constipation, unspecified constipation type group Yoel Dangelo APRN [facility] [place] [address] Paulette Glynn, PhD [facility] [place] [address] Referral ID Status Reason Start Date Expiration Date V isits Requested Visits Authorized [id number] Closed Consult, Test & Treat 06/01/2023 05/31/2024 1 1 Reason for Visit * Consultation (Routine) - Closed Specialty Diagnoses / Procedures Referred By Theodore muro Referred To Contact Gastroenterology Diagnoses Anal spasm motility- anal spasms Yoel Artis APRN [address] [place] [address] [facility] [place] [address] [address] Referral ID Status Reason Start Date Expiration Date V isits Requested Visits Authorized [id number] Closed Consult, Test & Treat PCP Updated and/or Approved 11/18/2022 11/18/2023 6 6 Encounter Details Date Type Department Care Team (Latest Contact Info) Description 06/01/2023 8:00 AM EDT TH Visit (TeleHealth) [place] [address] Yoel Dangelo, SUPERVISING EDITOR TRAILER [facility] [place] [address] Proctalgia fugax; Fecal smearing; Constipation, unspecified constipation [...] hear from us within 1 week: Clinic [phone] Motility Lab scheduling [phone] Endoscopy scheduling- [phone] Diagnostics: -Colonoscopy for rectal pain -Anorectal manometry [...] – [facility] website at: [email or web address]. Our hope is that through these classes, [...] please contact your insurance company or the [facility] billing office ([email or web address]). Your insurance company may request a CPT code if you ask about coverage. [place] [address]. If you're interested in attending any of these classes or workshops, please reach out to our scheduling team via [employer] [facility] or phone ([phone]). You should start a fiber supplement if [...] Handout for Patients and Primary Care Providers [facility] Gastrointestinal Motility, Esophageal, and Swallowing Disorders Center What are functional bowel disorders? These are the most common type of gastrointestinal disorders in the [facility] The most common functional bowel disorder in the [facility] is irritable bowel syndrome (IBS) [...] what is the impact? 15-20% of general [place] population has IBS or FD or both 2nd most common cause for lost work days (after common cold) in [place] Estimated $30 billion dollar cost to [place] economy per year These disorders can have [...] to you primary care provider and/or local dental office coordinator and share this document. Treatment of functional [...] - this approach benefits most patients OTC (wosj-dah-mmyrypp) medications can be used for ongoing bothersome [...] All-Bran psyllium buds, Metamucil, Konsyl, bulk psyllium ([employer] and [employer] stores) Specifically we recommend starting Metamucil or [...] but convincing medical evidence is still lacking Huef-zdf-bebsfqj supplements including probiotics are not typically evaluated [...] to decrease antibiotic-associated diarrhea and antibiotic-related infections Tcxb-jbt-Xqwqgun Medications for Functional Gut Disorders Based on [...] a stool softener that is safe for fdc usage (no risk of dependency) andthe dosage [...] (GERD) Often a combination of anti-nausea medications (yijo-jfv-zkpgebw or prescription) works better thanhigh doses of [...] for misuse/misinterpretation of this information Patient Resources [employer] https://www.gastro.org/practice-guidance/zl-nlmbilm-sifzxd/ topic/fnbsbtjun-ioscl-wupjhiqm-ibs Badgut.org https://badgut.org/information-centre/w-v-qnrxyarck-topics/ibs/ AboutIBS.org https://www.aboutibs.org/ Uptodate.com https://www.uptodate.com/contents/iegmsljmb-xcbhe-rdjwjuuw-uamflo-gmk-sgqgrc documented in this encounter Progress Notes * Yoel Dangleo APRN - 06/01/2023 8:00 AM EDT Images [...] weight loss Last colo [address] [facility] with no polyps. Current Regimen: Metamucil daily [...] recommendations above. The patient was located in [place] at the time of their visit. TIME SPENT WITH PATIENT Time spent reviewing records prior to this encounter on day of appointment: 2 minutes Time spent during encounter with patient including counselin minutes Time spent documenting encounter after office visit: 7 minutes Yoel Dangelo [place] [facility] [place] [address] documented in this encounter Plan of Treatment Upcoming Encounters Date Type Department Care Team (Late st Contact Info) Description 10/31/2024 9:30 AM EST Appointment Non-[place] [address] Mushtaq Murphy APRN 10/31/2024 11:00 AM EST Office Visit Cardiology at [address] [address] Mushtaq Murphy APRN Scheduled Orders Name Type [...] type documented in this encounter Care Teams Wellness Specialist Relationship Specialty Start Date End Date Yoel Artis APRN [address] [place] [address] PCP - General Internal Medicine 11/18/22 07/29/24 documented as of this encounter
--- OUTSIDE RECORDS SUMMARY | 2024-10-03 10:56 | XMS_ITS | Encounter Summary ---
[place] [address] Care Team Providers Care Airline Counter Agent Name Role Phone Yoel Artis APRN Primary Care Provider Encounter Details Date Type Department Care Team (Late st Contact Info) Description 12/23/2022 8:20 AM EDT - 12/23/2022 11:59 PM EDT Hospital Encounter [facility] Lab [address] [place] [address] Yoel Artis, BEHAVIORAL HEALTH CASE MANAGER [address] [place] [address] Discharge Disposition: Home Social History Tobacco Use [...] 9:30 AM EST Appointment Non-[place] [address] Mushtaq Murphy, FREDRICK 10/31/2024 11:00 AM EST Office Visit Cardiology at [address] [address] Mushtaq Murphy APRN documented as of this encounter Procedures Procedure Name Priority Date/Time Associated Diagnosis Comments PSA SCREEN Routine 12/23/2022 8:43 AM EDT documented in this encounter Results * (ABNORMAL) PSA Screen (12/23/2022 8:43 AM EDT) PSA Screen 4.37(H) 0.00 - 4.00 ng/mL [facility] Comment: PLEASE NOTE: The [...] Artis APRN CHEMISTRY ORDERABLES Performing Organization Address City/State/[facility] Co de Phone Number [facility] [place] [address] documented in this encounter Visit Diagnoses Not on filedocumented in this encounter Care Teams Airline Counter Agent Relationship Specialty Start Date End Date Yoel Artis APRN [address] [place] [address] PCP - General Internal Medicine 11/18/22 07/29/24 documented as of this encounter
--- OUTSIDE RECORDS SUMMARY | 2024-10-03 10:56 | XMS_ITS | Encounter Summary ---
[place] [address] Care Team Providers Care Film Historian Name Role Phone Yoel Artis FREDRICK Primary Care Provider [phone] Encounter Details Date Type Department Care Team (Late st Contact Info) Description 01/16/2024 Interpretation Only [facility] [address] [place] [address] Chaparro Montana MD [address] [place] [address] Social History Tobacco Use Types Packs/Day Years [...] 9:30 AM EST Appointment Non-Invasive [place] [address] Mushtaq Murphy APRN 10/31/2024 11:00 AM EST Office Visit Cardiology at [address] [address] Mushtaq Murphy, REAL ESTATE CONSULTANT documented as of this encounter Procedures Procedure Name Priority Date/Time Associated Diagnosis Comments XR CHEST ONE VIEW STAT 01/16/2024 4:0 4 PM EDT documented in this encounter Results * XR Chest One View (01/16/2024 4:04 PM EDT) PT CLASS E RAD ADMITDTTM [id number] RAD PT RAD INFO [id number]^Haniss henry^Chaparro RAD EXAM DESC XCXR1^XR Chest 1 View^RIS [facility] WORKSTATION ID [id number] RAD Anatomical Region Laterality Modality Chest N/A [...] first. Electronically signed by: Alexey Winslow MD, [facility]([phone]), at 01/16/2024 4:08 PM Chaparro Montana MD IMG DX ORDERABLES documented in this encounter Visit Diagnoses Not on filedocumented in this encounter Care Teams Film Historian Relationship Specialty Start Date End Date Yoel Artis APRN [address] [place] [address] PCP - General Internal Medicine 11/18/22 07/29/24 documented as of this encounter
--- OUTSIDE RECORDS SUMMARY | 2024-10-03 10:56 | XMS_ITS | Encounter Summary ---
[place] [address] Care Team Providers Care Loss Control Consultant Name Role Phone Yoel Artis APRN Primary Care Provider [phone] Reason for Referral * Consultation (Routine) - Closed Specialty Diagnoses / Procedures Referred By Theodore muro Referred To Contact Urology Diagnoses Raised prostate specific antigen PERSISTENTLY MILDLY ELEVATED PSA, URINARY FREQ Yoel Artis APRN [address] [place] [address] [facility] [place] [address] Referral ID Status Reason Start Date Expiration Date V isits Requested Visits Authorized [id number] Closed Consult, Test & Treat PCP Updated and/or Approved 07/30/2023 07/29/2024 6 6 Encounter Details Date Type Department Care Team (Late st Contact Info) Description 07/30/2023 Transcribe Orders eDH Incoming Referrals [phone] Yoel Artis APRN [address] [place] [address] Raised prostate specific antigen Social History Tobacco [...] 9:30 AM EST Appointment [place] [address] Mushtaq Murphy APRN 10/31/2024 11:00 AM EST Office Visit Cardiology at [address] [address] Mushtaq Murphy, FREDRICK Scheduled Referrals Name Type Priority Associated Diagnoses Orde r Schedule Referral to Urology Outpatient Referral Routine Raised prostate specific antigen Ordered: 07/30/2023 documented as of this encounter Visit Diagnoses Diagnosis Raised prostate specific antigen Elevated prostate specific antigen (PSA) documented in this encounter Care Teams Loss Control Consultant Relationship Specialty Start Date End Date Yoel Artis APRN [address] [place] [address] PCP - General Internal Medicine 11/18/22 07/29/24 documented as of this encounter
--- OUTSIDE RECORDS SUMMARY | 2024-10-03 10:56 | XMS_ITS | Encounter Summary ---
[place] [address] Care Team Providers Care Third Loader Name Role Phone Yoel Artis FREDRICK Primary Care Provider [phone] Encounter Details Date Type Department Care Team (Late st Contact Info) Description 08/26/2023 Telephone [place] [address] Madelyn Vasquez Social History Tobacco Use Types [...] - 08/26/2023 9:23 AM EST Korey Montoya [id number] Diagnosis/Indication: Rectal pain, fecal smearing Please review [...] ever had a/an Colonoscopy before? Yes: Date [id number] ago [facility] If yes, did you have any [...] your procedure. Who will likely be your car driver for the procedure? Please Verify [...] 9:30 AM EST Appointment Non-[place] [address] Mushtaq Murphy APRN 10/31/2024 11:00 AM EST Office Visit Cardiology at [address] [address] Mushtaq Murphy, FREDRICK documented as of this encounter Visit Diagnoses Not on filedocumented in this encounter Care Teams Third Loader Relationship Specialty Start Date End Date Yoel Artis APRN [address] [place] [address] PCP - General Internal Medicine 11/18/22 07/29/24 documented as of this encounter
--- OUTSIDE RECORDS SUMMARY | 2024-10-03 10:56 | XMS_ITS | Encounter Summary ---
[place] [address] Care Team Providers Care Pole Maker Name Role Phone Yoel Artis FREDRICK Primary Care Provider [phone] Encounter Details Date Type Department Care Team (Late st Contact Info) Description 07/28/2024 Interpretation Only [address] [phone] Quinten Coffey MD [address] [place] [address] Social History Tobacco Use Types Packs/Day Years [...] 9:30 AM EST Appointment Non[place] [address] Mushtaq Murphy APRN 10/31/2024 11:00 AM EST Office Visit Cardiology at [address] [address] Mushtaq Murphy, OPERATIONS LIEUTENANT documented as of this encounter Procedures Procedure Name Priority Date/Time Associated Diagnosis Comments XR CHEST ONE VIEW STAT 07/28/2024 10: 22 AM EST documented in this encounter Results * XR Chest One View (07/28/2024 10:22 AM EST) PT CLASS E RAD ADMITDTTM [id number] RAD PT RAD INFO [id number]^Potter ^Quinten RAD EXAM DESC XCXR1^XR Chest 1 View^RIS [facility] WORKSTATION ID [id number] RAD Anatomical Region Laterality [...] questions please contact the health home care giver that requested your imaging first. ? Narrative [...] have questions please contactthe health home care giver that requested your imaging first. Quinten Coffey MD IMG DX ORDERABLES documented in this encounter Visit Diagnoses Not on filedocumented in this encounter Care Teams Pole Maker Relationship Specialty Start Date End Date Yoel Artis APRN [address] [place] [address] PCP - General Internal Medicine 11/18/22 07/29/24 documented as of this encounter
--- OUTSIDE RECORDS SUMMARY | 2024-10-03 10:56 | XMS_ITS | Encounter Summary ---
[place] [address] Care Team Providers Care Food Service Lead Name Role Phone Yoel Artis APRN Primary Care Provider Encounter Details Date Type Department Care Team (Late st Contact Info) Description 03/01/2023 9:30 AM EDT - 03/01/2023 11:59 PM EDT Hospital Encounter [facility] Lab [address] [place] [address] Yoel Atris, DEPUTY REGISTER OF DEEDS [address] [place] [address] Discharge Disposition: Home Social History Tobacco Use [...] 9:30 AM EST Appointment Non-[place] [address] Mushtaq Murphy, FREDRICK 10/31/2024 11:00 AM EST Office Visit Cardiology at [address] [address] Mushtaq Murphy APRN documented as of this encounter Procedures Procedure Name Priority Date/Time Associated Diagnosis Comments PSA (ULTRASENSITIVE) Routine 03/01/2023 9:38 AM EDT documented in this encounter Results * (ABNORMAL) PSA (Ultrasensitive) (03/01/2023 9:38 AM EDT) Prostate Specific Antigen (Ultrasensitive) 5.09(H) 0.00 - 4.00 ng/mL [facility] Comment: PLEASE NOTE: The [...] In Lab Yoel Artis APRN CHEMISTRY ORDERABLES [facility] [place] [address] documented in this encounter Visit Diagnoses Not on filedocumented in this encounter Care Teams Food Service Lead Relationship Specialty Start Date End Date Yoel Artis APRN [address] [place] [address] PCP - General Internal Medicine 11/18/22 07/29/24 documented as of this encounter
--- OUTSIDE RECORDS SUMMARY | 2024-10-03 10:56 | XMS_ITS | Encounter Summary ---
Author Organization Formerly [facility] [address] Care Team Providers Care Hide Sorter Name Role Phone Yoel Artis Ute ALCALA Primary Care Provider [phone] Encounter Details Date Type Department Care Team (Late st Contact Info) Description 07/29/2024 Interpretation Only [facility] [address] [place] [phone] Chaparro Montana MD [address] [place] [address] Social History Tobacco Use Types Packs/Day Years Used Date Smoking Tobacco: Former Cigarettes Smokeless Tobacco: Never Alcohol Use Standard Drinks/Week Comments Not Currently 0 (1 standard drink = 0.6 oz pur e alcohol) [facility] Utilities Answer Date Recorded In the past 12 months has [employer], gas, oil, or water [employer] threatened to shut off services in your [...] any time in the past 12 m [facility], were you homeless or living [...] 9:30 AM EST Appointment Non[place] [address] Mushtaq Murphy, MARKET RESEARCH CONSULTANT 10/31/2024 11:00 AM EST Office Visit Cardiology at [address] [address] Mushtaq Murphy, MARKET RESEARCH CONSULTANT documented as of this encounter Procedures Procedure Name Priority Date/Time Associated Diagnosis Comments XR CHEST ONE VIEW STAT 07/29/2024 10: 50 AM EST documented in this encounter Results * XR Chest One View (07/29/2024 10:50 AM EST) PT CLASS E RAD ADMITDTTM [id number] RAD PT RAD MD INFO [id number]^Jordy figueroa^Chaparro RAD EXAM DESC XCXR1^XR Chest 1 View^RIS [...] account director that requested your imaging first. Chaparro Montana MD IMG DX ORDERABLES documented in this encounter Visit Diagnoses Not on filedocumented in this encounter Care Teams Hide Sorter Relationship Specialty Start Date End Date Yoel Artis APRN [address] [place] [address] PCP - General Internal Medicine 11/18/22 07/29/24 documented as of this encounter
--- OUTSIDE RECORDS SUMMARY | 2024-10-03 10:56 | XMS_ITS | Encounter Summary ---
[place] [address] Care Team Providers Care Electrogalvanizing Machine Operator Name Role Phone Yoel Artis APRN Primary Care Provider [phone] Reason for Referral * Consultation (Routine) - Closed Specialty Diagnoses / Procedures Referred By Theodore muro Referred To Contact Gastroenterology Diagnoses Anal spasm motility- anal spasms Yoel Artis APRN [address] [place] [address] [facility]astro [address] [place] [address] Referral ID Status Reason Start Date Expiration Date V isits Requested Visits Authorized [id number] Closed Consult, Test & Treat PCP Updated and/or Approved 11/18/2022 11/18/2023 6 6 Encounter Details Date Type Department Care Team (Late st Contact Info) Description 11/18/2022 Transcribe Orders eDH Incoming Referrals [phone] Yoel Artis APRN [address] [place] [address] Anal spasm Social History Tobacco [...] 9:30 AM EST Appointment Non-Invasive [place] [address] Mushtaq Murphy, FREDRICK 10/31/2024 11:00 AM EST Office Visit Cardiology at [address] [address] Mushtaq Murphy, SENIOR ENVIRONMENTAL ENGINEER Scheduled Referrals Name Type Priority Associated Diagnoses Order Schedule Referral to Gastroenterology Outpatient Referral Routine Anal spasm Ordered: 11/18/2022 documented as of this encounter Visit Diagnoses Diagnosis Anal spasm documented in this encounter Care Teams Electrogalvanizing Machine Operator Relationship Specialty Start Date End Date Yoel Artis APRN [address] [place] [address] PCP - General Internal Medicine 11/18/22 07/29/24 documented as of this encounter
--- OUTSIDE RECORDS SUMMARY | 2024-10-03 10:56 | XMS_ITS | Encounter Summary ---
[place] [address] Care Team Providers Care Signal Wirer Name Role Phone Alexia Mtz BANANA RIPENING ROOM SUPERVISOR Primary Care Provider [phone] Encounter Details Date Type Department Care Team (Late st Contact Info) Description 06/25/2024 Lab Requisition [place] [address] Aubrey Cali MD [address] [place] [address] Pyuria Social History Tobacco Use Types Packs/Day [...] 9:30 AM EST Appointment Non-Invasive [place] [address] Mushtaq Murphy APRN 10/31/2024 11:00 AM EST Office Visit Cardiology at [address] [address] Mushtaq Murphy APRN documented as of this encounter Procedures Procedure Name Priority Date/Time Associated Diagnosis Comments URINE CULTURE Routine 06/25/2024 11:55 AM EDT Pyuria documented in this encounter Results * Urine culture (06/25/2024 11:55 AM EDT) Urine Culture No growth 06/26/2024 12:22 PM EDT [facility] Urine URINE SPECIMEN OBTAINED BY CLEAN CATCH PROCEDURE / Unknown 06/25/2024 11:55 AM EDT 06/25/2024 5:18 PM EDT Aubrey Cali MD MICROBIOLOGY - GENER AL ORDERABLES [facility] [place] [address] documented in this encounter Visit Diagnoses Diagnosis Pyuria Other nonspecific finding on examination of urine documented in this encounter Care Teams Signal Wirer Relationship Specialty Start Date End Date Alexia Mtz APRN [address] [place] [address] PCP - General Family Medicine 07/30/24 documented as of this encounter
--- OUTSIDE RECORDS SUMMARY | 2024-10-03 10:56 | XMS_ITS | Encounter Summary ---
[place] [address] Care Team Providers Care Pool Table Operator Name Role Phone Alexia Mtz FREDRICK Primary Care Provider [phone] Encounter Details Date Type Department Care Team (Late st Contact Info) Description 07/29/2024 External Results [place] [address] Social History Tobacco Use Types Packs/Day Years Used Date Smoking Tobacco: Former Cigarettes Smokeless Tobacco: Never Alcohol Use Standard Drinks/Week Comments Not Currently 0 (1 standard drink = 0.6 oz pur e alcohol) [facility] Utilities Answer Date Recorded In the [...] 9:30 AM EST Appointment Non-Invasive [place] [address] Mushtaq Murphy, FREDRICK 10/31/2024 11:00 AM EST Office Visit Cardiology at [address] [address] Mushtaq Murphy, FREDRICK documented as of this encounter Procedures Procedure Name Priority Date/Time Associated Diagnosis Comments MISC EXTERNAL CARDIOLOGY RESULT Routine 07/29/2024 10:13 AM EST documented in this encounter Results * External Cardiology Result (07/29/2024 10:13 AM EST) Anatomical Region Laterality Modality Other Historical Provider EXTERNAL CARDIOLO GY RESULT documented in this encounter Visit Diagnoses Not on filedocumented in this encounter Care Teams Pool Table Operator Relationship Specialty Start Date End Date Alexia Mtz APRN [address] [place] [address] PCP - General Family Medicine 07/30/24 documented as of this encounter
--- OUTSIDE RECORDS SUMMARY | 2024-10-03 10:56 | XMS_ITS | Encounter Summary ---
[place] [address] Care Team Providers Care Gray Tender Name Role Phone Anibal Mtz MD Primary Care Provider [phone] Encounter Details Date Type Department Care Team (Late st Contact Info) Description 11/08/2022 [facility] Only [address] [address] Eve Frost MD [address] [place] [address] Social History Tobacco Use Types Packs/Day Years [...] 9:30 AM EST Appointment Non-[place] [address] Mushtaq Murphy APRN 10/31/2024 11:00 AM EST Office Visit Cardiology at [address] [address] Mushtaq Murphy, RANCH HAND documented as of this encounter Procedures Procedure Name Priority Date/Time Associated Diagnosis Comments XR CHEST PA AND LATERAL STAT 11/08/2022 10:34 AM EST documented in this encounter Results * XR Chest PA & Lateral (Generic) (11/08/2022 10:34 AM EST) PT CLASS E DH RAD ADMITDTTM RAD PT RAD INFO [id number]^C HANDER^SUNEE R RAD EXAM DESC XCXR2^XR CHEST [...] have questions please contact the health pediatric critical care nurse that requested your imaging first. ? Electronically signed by: Alejandro Tenorio MD, [facility] ([phone]), at 11/08/2022 10:37 AM Narrative 11/08/2022 10:37 [...] who have questions please contactthe health pediatric critical care nurse that requested your imaging first. Electronically signed by: Alejandro Tenorio MD, [facility]([phone]), at 11/08/2022 10:37 AM Eve Frost MD IMG DX ORDERABLES documented in this encounter Visit Diagnoses Not on filedocumented in this encounter Care Teams Gray Tender Relationship Specialty Start Date End Date Anibal Mtz MD [address] [place] [address] PCP - General Family Medicine 01/17/19 11/17/22 documented as of this encounter
--- OUTSIDE RECORDS SUMMARY | 2024-10-03 10:56 | XMS_ITS | Encounter Summary ---
[place] [address] Care Team Providers Care Vehicle Return Associate Name Role Phone Yoel Artis FREDRICK Primary Care Provider [phone] Reason for Visit * Auth/Cert (Routine) Specialty Diagnoses / Procedures Referred By Theodore t Referred To Contact Diagnoses Anal spasm Fecal smearing Constipation, unspecified Rectal pain, fecal smearing Procedures PRO COLONOSCOPY, DIAGNOSTIC PRO COLONOSCOPY, BIOPSY PRO COLONOSCOPY, REMV LESN, SNARE COLONOSCOPY, DIAGNOSTIC (WRVU 3.26) Brandan Mcgovern MD [facility] [address] [facility] Referral ID Status Reason Start Date Expiration Date Visits Re quested Visits Authorized [id number] 1 1 Encounter Details Date Type Department Care Team (Late st Contact Info) Description 08/30/2023 11:00 AM EST - 08/30/2023 12:00 PM EST [place] [address] Brandan Mcgovern MD [facility] [address] COLONOSCOPY, POLYPECTOMY, REMOVAL LESION BY SNARE (WRVU [...] occurs, please contact your Doctor. Please call [phone] before 8pm Mon-Fri with problems, questions or concerns. If you call after 8pm or on weekends, call the Hospital at [phone] and ask to speak to the Ground Services Instructor brickmason supervisor and the chief operator lock tender will contact that person for you. When should you call for help? Call 109 anytime you think you may need emergency [...] any problems. Where can you learn more? [facility] View your After Visit Summary and more online at [email or web address] If you would like to provide feedback about your hospital experience, please call the Office of Patient and Family Relations at . If you have received this After Visit Summary in error, please immediately return it in person to the department, or notify the [facility] Privacy Office by calling toll free at between the hours of 8AM and 5PM to arrange for our retrieval of the documents at no cost to you. Content Version: 12.2 ?? 5749-6044 Viptable. Care instructions adapted under license by [facility]. If you have questions about a medical condition or this instruction, always ask your healthcare professional. [employer] disclaims any warranty or liability for your [...] 04/17/2023 08/04/2024 nitroGLYcerin (NITROLINGUAL) 400 mcg/spray [place], Non-AerosolIndications:P roctalgia fugax,Fecal smearing,Constipation, unspecified constipation type [...] 9:30 AM EST Appointment Non-[place] [address] Mushtaq Murphy APRN 10/31/2024 11:00 AM EST Office Visit Cardiology at [address] [phone] Mushtaq Murphy APRN documented as of this encounter Procedures Procedure Name Priority Date/Time Associated Diagnosis Comments SPECIMEN TO PATHOLOGY Routine 08/30/2023 11:23 AM EST SURGICAL PATHOLOGY REPORT Routine 08/30/2023 11:21 AM EST COLONOSCOPY Routine 08/30/2023 10:57 AM EST Colonoscopy, Antonieta Valadez ([id number]) 08/30/2023 10:44 AM EST Proctalgia fugax Fecal smearing Constipation, unspecified constipation type documented in this encounter Results * Specimen to Pathology (08/30/2023 11:23 AM EST) AP Specimen 08/30/2023 11:2 3 AM EST 08/30/2023 11:23 AM EST Narrative [facility] - 08/30/2023 11:23 AM EST Specimen requisition ordered. ??Separate Pathology report to follow Brandan Mcgovern MD PATHOLOGY/CYTOLOGY O RDERASHAY [facility] [place] [address] * Surgical Pathology Report (08/30/2023 11:21 AM EST) Final Diagnosis [id number] ? Location: 4T; EA12; A The signing pathologist has (i) examined the relevant preparation(s) for the specimen(s) and (ii) rendered or confirmed the diagnosis(es). . ?Surgical Pathology DIAGNOSIS A - Sigmoid colon polyp, resection (Multiple): - ??Tubular adenoma. CR-PX Electronically signed by: ?Blake ORTEGA PhD, Yulia Verified: ??09/08/2023 14:48 ??Pathologist Performed at: ??-[facility] Dept. of Pathology, [place] [address] Steam Heating Installer: Fercho Chan MD, AP, ??CLIA Certificate: [id number] SPECIMEN(S) SUBMITTED A - Sigmoid colon polyp, resection (Multiple) CLINICAL INFORMATION 73-year-old male, history of rectal pain SPECIMEN PROCESSING A - Labeled/Fixativ e: Sigmoid colon polyp, formalin. Quantity/Size: Single, 0.8 cm. Tissue Description: Soft, candelaria tissue. Sections/Proces sing: Submitted in toto ??in 1 cassette labeled A1. ??sdy 09/08/2023 2:[address] [facility] GI Biopsy 08/30/2023 11:2 1 AM EST 08/30/2023 11:21 AM EST Brandan Mcgovern MD PATHOLOGY/CYTOLOGY Veronica MORENO [facility] [place] [place] [address] [facility] [place] [address] * COLONOSCOPY (08/30/2023 10:57 AM EST) COLONOSCOPY [facility] Endoscopy Procedure Date: 08/30/2023 10:57 AM ? Patient Name: Korey Montoya ? Date of : 1950 ? Age: 73 ? Order #: [id number] ? Instrument Name: [id number] ? Procedure: ? Colonoscopy Indications: ? Rectal [...] preparation was evaluated ? using the BBPS ([place] Bowel ? Preparation Scale) with scores of: [...] AM PROVATION 08/30/2023 10:5 7 AM EST Yole Artis APRN GENERAL SURGICAL ORD ERABLES PROVATION [...] RN) documented in this encounter Care Teams Vehicle Return Associate Relationship Specialty Start Date End Date Yoel Artis APRN [address] [place] [address] PCP - General Internal Medicine 11/18/22 07/29/24 documented as of this encounter
--- OUTSIDE RECORDS SUMMARY | 2024-10-03 10:56 | XMS_ITS | Encounter Summary ---
Author Organization [facility] Address [facility] [place] [address] Care Team Providers Care Physical Education Specialist Name Role Phone Yoel Artis FREDRICK Primary Care Provider [phone] Encounter Details Date Type Department Care Team (Late st Contact Info) Description 07/29/2024 [place] [phone] Ivan Hernandez MD [facility] [place] [address] Social History Tobacco Use Types Packs/Day Years Used Date Smoking Tobacco: Former Cigarettes Smokeless Tobacco: Never Alcohol Use Standard Drinks/Week Comments Not Currently 0 (1 standard drink = 0.6 oz pur e alcohol) [facility] Utilities Answer Date Recorded In the past 12 months has e [employer], gas, oil, or water [employer] threatened to shut off services in your [...] any time in the past 12 m [facility], were you homeless or [...] 9:50 AM Hospital to which patient presented: [facility] If Hospital to which patient presented= [facility]: ED Walk In Medical History (prior to [...] Unfractionated Heparin Plan STEMI Alert called: Yes Agricultural Scientist Activated by: Floater Operator Initial Disposition: Admit Agricultural Scientist documented in this encounter Plan of Treatment Upcoming Encounters Date Type Department Care Team (Late st Contact Info) Description 10/31/2024 9:30 AM EST Appointment Non-Invasive Card[place] [address] Mushtaq Murphy APRN 10/31/2024 11:00 AM EST Office Visit Cardiology at [address] [address] Mushtaq Murphy APRN documented as of this encounter Visit Diagnoses Not on filedocumented in this encounter Care Teams Physical Education Specialist Relationship Specialty Start Date End Date Yoel Artis APRN [address] [place] [address] PCP - General Internal Medicine 11/18/22 07/29/24 documented as of this encounter
--- OUTSIDE RECORDS SUMMARY | 2024-10-03 10:56 | XMS_ITS | Encounter Summary ---
[place] [address] Care Team Providers Care Lock Up Worker Name Role Phone oYel Artis FREDRICK Primary Care Provider [phone] Encounter Details Date Type Department Care Team (Late st Contact Info) Description 01/16/2024 Interpretation Only [facility] [address] [place] [address] Chaparro Montana MD [address] [place] [address] Social History Tobacco Use Types Packs/Day Years [...] 9:30 AM EST Appointment Non-Invasive [place] [address] Mushtaq Murphy APRN 10/31/2024 11:00 AM EST Office Visit Cardiology at [address] [address] Mushtaq Murphy, HUMAN RESOURCES OFFICER documented as of this encounter Procedures Procedure Name Priority Date/Time Associated Diagnosis Comments CT HEAD WO CONTRAST (GENERIC) STAT 01/16/2024 4:17 PM EDT documented in this encounter Results * CT Head wo Contrast (Generic) (01/16/2024 4:17 PM EDT) PT CLASS E RAD ADMITDTTM [id number] RAD PT RAD MD INFO [id number]^Haniss henry^Chaparro RAD EXAM DESC CTHEAD^CT Head w/o Contrast^RIS RAD WORKSTATION ID [id number] RAD Anatomical Region Laterality Modality Head Computed Tomogra phy 01/16/2024 4:03 PM EDT Impressions 01/16/2024 4:25 PM EDT No acute intracranial pathology. Thank you for letting us participate in the care of this patient. ??If you are a health care provider and have any questions regarding this report, please contact the number below. ??For patients who have questions please contact the health career technical supervisor that requested your imaging first. ? Electronically signed by: Alejandro Tenorio MD, [facility] ([phone]), at 01/16/2024 4:25 PM Narrative 01/16/2024 4:25 [...] who have questions please contactthe health career technical supervisor that requested your imaging first. Electronically signed by: Alejandro Tenorio MD, [facility]([phone]), at 01/16/2024 4:25 PM Chaparro Montana MD IMG CT ORDERABLES documented in this encounter Visit Diagnoses Not on filedocumented in this encounter Care Teams Lock Up Worker Relationship Specialty Start Date End Date Yoel Artis APRN [address] [place] [address] PCP - General Internal Medicine 11/18/22 07/29/24 documented as of this encounter
--- OUTSIDE RECORDS SUMMARY | 2024-10-03 10:56 | XMS_ITS | Encounter Summary ---
Author Organization [facility] Address [facility] [place] [address] Care Team Providers Care Commercial Front Load Operator Name Role Phone Yoel Artis Ute ALCALA Primary Care Provider [phone] Encounter Details Date Type Department Care Team (Late st Contact Info) Description 07/29/2024 [place] [address] Susannah Watts PA [facility] [place] [address] Social History Tobacco Use Types Packs/Day Years Used Date Smoking Tobacco: Former Cigarettes Smokeless Tobacco: Never Alcohol Use Standard Drinks/Week Comments Not Currently 0 (1 standard drink = 0.6 oz pur e alcohol) [facility] Utilities Answer Date Recorded In the past 12 months has [employer], Parental Health, oil, or water [employer] threatened to shut off services in your [...] 9:30 AM EST Appointment [place] [address] Mushtaq Murphy, YARDER BOSS 10/31/2024 11:00 AM EST Office Visit Cardiology at [address] [address] Mushtaq Murphy, YARDER BOSS documented as of this encounter Procedures Procedure Name Priority Date/Time Associated Diagnosis Comments ECHOCARDIOGRAM TRANSTHORACIC Routine 07/30/2024 1:41 AM EST documented in this encounter Results * Echocardiogram Transthoracic (07/30/2024 1:41 AM EST) Anatomical Region Laterality Modality Cardiac Other 07/30/2024 1:41 AM EST Narrative 07/30/2024 8:23 AM EST [address] [place] [address] ? Echocardiogram Report Name: BERMUDEZ KOREY Kyrie ? Study Date: 07/30/2024 01:41 AM : 1950 ? Height: 168 cm Age: 74 yrs ? Weight: 5.9 kg Gender: Male ?BSA: 0.63 m2 Performed By: Beatris Ching MD Reason For Study: STEMI, [place] History: ASCVD, HTN, HLD Interpreting Fellow: Beatris Ching. Interpretation Summary This is a limited study performed by a fellow fluorescent solution mixer to evaluate for cardiogenic shock with impella [...] study available for comparison. Procedure Limited - 17900. Suboptimal quality. There is sinus bradycardia. Left [...] Note Kathleen Banda MD - 07/30/2024 [address] [place] [address] Echocardiogram Report Name: KOREY BERMUDEZ Study Date: 07/30/2024 01:41AM : 1950 Height: 168 cm Age: 74 yrs Weight: 5.9 kg Gender: Male BSA: 0.63 m2 Performed By: Beatris Ching MD Reason For Study: STEMI, [place] History: ASCVD, HTN, HLD Interpreting Fellow: Beatris Ching. Interpretation Summary This is a limited study performed by a fellow fluorescent solution mixer to evaluate forcardiogenic shock with impella in. [...] study available for comparison. Procedure Limited - 03449. Suboptimal quality. There is sinus bradycardia. Left [...] on filedocumented in this encounter Care Teams Commercial Front Load Operator Relationship Specialty Start Date End Date Yoel Artis APRN [address] [place] [address] PCP - General Internal Medicine 11/18/22 07/29/24 documented as of this encounter
--- OUTSIDE RECORDS SUMMARY | 2024-10-03 10:56 | XMS_ITS | Encounter Summary ---
[place] [address] Care Team Providers Care Hot Die Picker Name Role Phone Alexia Mtz PRELIMINARY SCHOOL PSYCHOLOGIST Primary Care Provider [phone] Encounter Details Date Type Department Care Team (Late st Contact Info) Description 04/23/2024 Lab [place] [address] Alexia Mtz, PRELIMINARY SCHOOL PSYCHOLOGIST [address] [place] [address] Elevated prostate specific antigen (PSA) Social History [...] 9:30 AM EST Appointment Non[place] [address] Mushtaq Murphy, PRELIMINARY SCHOOL PSYCHOLOGIST 10/31/2024 11:00 AM EST Office Visit Cardiology at [address] [address] Mushtaq Murphy, FREDRICK documented as of this encounter Procedures Procedure Name Priority Date/Time Associated Diagnosis Comments PSA (ULTRASENSITIVE), TOTAL AND FREE Routine 04/23/2024 1:09 PM EDT Elevated prostate specific antigen (PSA) documented in this encounter Results * (ABNORMAL) PSA (Ultrasensitive), total and free (04/23/2024 1:09 PM EDT) Prostate Specific Antigen (Ultrasensitive) 5.24(H) 0.00-4.00 ng/mL ng/ml 04/23/2024 5:18 PM EDT [facility] Comment:The reference interv al (0 - 4 ng/mL) is applicable to individuals with an intact prostate. Values within this reference interval may indicate recurrence in those who have undergone radical prostatectomy. This result was generated using a Vuzix Osiel immunoassay. Results obtained from other methods or manufacturers cannot be used interchangeably with this method. Prostate Specific Antigen, Free 1.1 ng/ml 04/23/2024 5:18 PM EDT [facility] Comment:This result was gene rated using a Vuzix Osiel immunoassay. Results obtained from other methods or manufacturers cannot be used interchangeably with this method. PSA % Free 21 % 04/23/2024 5:18 PM EDT [facility] Comment: Probability of finding MAT INSPECTOR on needle biopsy by age in years: [...] EDT 04/23/2024 4:50 PM EDT Alexia Mtz PRELIMINARY SCHOOL PSYCHOLOGIST CHEMISTRY ORDERABLES Performing Organization Address City/State/[facility] Co de Phone Number [facility] [place] [address] documented in this encounter Visit Diagnoses Diagnosis Elevated prostate specific antigen (PSA) documented in this encounter Care Teams Hot Die Picker Relationship Specialty Start Date End Date Alexia Mtz, FREDRICK [address] [place] [address] PCP - General Family Medicine 07/30/24 documented as of this encounter
--- OUTSIDE RECORDS SUMMARY | 2024-10-03 10:56 | XMS_ITS | Encounter Summary ---
Author Organization [facility] [place] [address] Care Team Providers Care Cleaning And Washing Equipment Operator Name Role Phone Yoel Artis Ute ALCALA Primary Care Provider [phone] Reason for Visit * Auth/Cert (Routine) Specialty Diagnoses / Procedures Referred By Theodore t Referred To Contact Diagnoses Anal spasm Fecal smearing Constipation, unspecified Rectal pain, fecal smearing Procedures PRO COLONOSCOPY, DIAGNOSTIC PRO COLONOSCOPY, BIOPSY PRO COLONOSCOPY, REMV LESN, SNARE COLONOSCOPY, DIAGNOSTIC (WRVU 3.26) Brandan Mcgovern MD [facility] [place] [address] [facility] Referral ID Status Reason Start Date Expiration Date Visits Re quested Visits Authorized [id number] 1 1 Encounter Details Date Type Department Care Team (Latest Contact Info) Description 08/30/2023 10:09 AM EST - 08/30/2023 12:19 PM [facility] Hospital En[place] [address] Brandan Mcgovern MD [facility] [place] [address] Discharge Disposition: Home Social History Tobacco Use [...] occurs, please contact your Doctor. Please call [phone] before 8pm Mon-Fri with problems, questions or concerns. If you call after 8pm or on weekends, call the Hospital at [phone] and ask to speak to the Hammerer Tab solution coordinator and the mill operator head will contact that person for you. When should you call for help? Call 310 anytime you think you may need emergency [...] After Visit Summary and more online at [email or web address] If you would like to provide feedback about your hospital experience, please call the Office of Patient and Family Relations at . If you have received this After Visit Summary in error, please immediately return it in person to the department, or notify the [facility] Privacy Office by calling toll free at between the hours of 8AM and 5PM to arrange for our retrieval of the documents at no cost to you. Content Version: 12.2 ?? 3326-1946 SwiftKey. Care instructions adapted under license by [facility]. If you have questions about a medical condition or this instruction, always ask your healthcare professional. SwiftKey disclaims any warranty or liability for your [...] evening. 04/17/2023 08/04/2024 nitroGLYcerin (NITROLINGUAL) 400 mcg/spray [place], Non-AerosolIndications:P roctalgia fugax,Fecal smearing,Constipation, unspecified constipation type [...] 9:30 AM EST Appointment Non-[place] [address] Mushtaq Murphy APRN 10/31/2024 11:00 AM EST Office Visit Cardiology at [address] [address] Mushtaq Murphy APRN documented as of this encounter Procedures Procedure Name Priority Date/Time Associated Diagnosis Comments SPECIMEN TO PATHOLOGY Routine 08/30/2023 11:23 AM EST SURGICAL PATHOLOGY REPORT Routine 08/30/2023 11:21 AM EST COLONOSCOPY Routine 08/30/2023 10:57 AM EST Colonoscopy, Antonieta Valadez ([id number]) 08/30/2023 10:44 AM EST Proctalgia fugax Fecal smearing Constipation, unspecified constipation type documented in this encounter Results * Specimen to Pathology (08/30/2023 11:23 AM EST) AP Specimen 08/30/2023 11:2 3 AM EST 08/30/2023 11:23 AM EST Narrative [facility] - 08/30/2023 11:23 AM EST Specimen requisition ordered. ??Separate Pathology report to follow Brandan Mcgovern MD PATHOLOGY/CYTOLOGY O RDERASHAY [facility] [place] [address] * Surgical Pathology Report (08/30/2023 11:21 AM EST) Final Diagnosis [id number] ? Location: 4T; EA12; A The signing pathologist has (i) examined the relevant preparation(s) for the specimen(s) and (ii) rendered or confirmed the diagnosis(es). . ?Surgical Pathology DIAGNOSIS A - Sigmoid colon polyp, resection (Multiple): - ??Tubular adenoma. CR-PX Electronically signed by: ?Blake ORTEGA PhD, Yulia Verified: ??09/08/2023 14:48 ??Pathologist Performed at: ??-[facility] Dept. of Pathology, [place] [address] Sewer Inspector: Fercho Chan MD, FCAP, ??CLIA Certificate: [id number] SPECIMEN(S) SUBMITTED A - Sigmoid colon polyp, [...] AM EST Brandan Mcgovern MD PATHOLOGY/CYTOLOGY Veronica RDCLAIREBLES [facility] [place] [address] [facility] [place] [address] * COLONOSCOPY (08/30/2023 10:57 AM EST) COLONOSCOPY [facility] Endoscopy Procedure Date: 08/30/2023 10:57 AM ? Patient Name: Korey Montoya ? N: [id number] ? Date of : 1950 ? Age: 73 ? Order #: [id number] ? Instrument Name: [id number]- [id number] ? Procedure: ? Colonoscopy Indications: ? Rectal [...] preparation was evaluated ? using the BBPS ([place] Bowel ? Preparation Scale) with scores of: [...] Tika Fowler RN)1049 (Given - Provider: Tika Fowler, RN)1057 (Given - Provider: Tika Fowler RN)1059 (Given - Provider: Tika Fowler, RENEA)1102 (Given - Provider: Tika Fowler RN) midazolam [...] RN) documented in this encounter Care Teams Cleaning And Washing Equipment Operator Relationship Specialty Start Date End Date Yoel Artis APRN [address] [place] [address] PCP - General Internal Medicine 11/18/22 07/29/24 documented as of this encounter
--- OUTSIDE RECORDS SUMMARY | 2024-10-03 10:56 | XMS_ITS | Encounter Summary ---
Author Organization [facility] [place] [address] Care Team Providers Care Residential Care Facility Manager Name Role Phone Yoel Artis Ute ALCALA Primary Care Provider Encounter Details Date Type Department Care Team (Late st Contact Info) Description 01/16/2024 5:46 PM EDT - 01/16/2024 11:59 PM EDT Hospital Encounter [facility] Lab [address] [place] [address] Chaparro Montana MD [address] [place] [address] Discharge Disposition: Home Social History Tobacco Use [...] evening. 04/17/2023 08/04/2024 nitroGLYcerin (NITROLINGUAL) 400 mcg/spray [place], Non-AerosolIndications:P roctalgia fugax,Fecal smearing,Constipation, unspecified constipation type 1 spray to anus for proctalgia fugax as needed, not to exceed once daily 12 g 06/01/2023 08/04/2024 documented as of this encounter Plan of Treatment Upcoming Encounters Date Type Department Care Team (Late st Contact Info) Description 10/31/2024 9:30 AM EST Appointment Non-[place]vasive [place] [address] Mushtaq Murphy, FREDRICK 10/31/2024 11:00 AM EST Office Visit Cardiology at [address] [address] Mushtaq Murphy, FREDRICK documented as of this encounter Procedures Procedure Name Priority Date/Time Associated Diagnosis Comments URINE CULTURE Routine 01/16/2024 4:00 PM EDT documented in this encounter Results * Urine culture (01/16/2024 4:00 PM EDT) Urine Culture No growth (Less than 1,000 cfu/ml). [facility] Urine 01/16/2024 4:00 PM EDT 01/16/2024 10:36 PM EDT Narrative Resulting Agency Comment Spec In Lab Chaparro Montana MD MICROBIOLOGY - [facility] ORDERABLES [facility] [place] [address] documented in this encounter Visit Diagnoses Not on filedocumented in this encounter Care Teams Residential Care Facility Manager Relationship Specialty Start Date End Date Yoel Artis APRN [address] [place] [address] PCP - General Internal Medicine 11/18/22 07/29/24 documented as of this encounter
--- OUTSIDE RECORDS SUMMARY | 2024-10-03 10:57 | XMS_ITS | Encounter Summary ---
[place] [address] Care Team Providers Care Marketing Automation Analyst Name Role Phone Anibal Mtz MD Primary Care Provider [phone] Encounter Details Date Type Department Care Team (Late st Contact Info) Description 01/18/2019 3:00 PM EDT Interpretation Only Cardiology at [address] [phone] Alberto Powell Jr., MD Dizziness Social History [...] 9:30 AM EST Appointment Non-Invasive [place] [address] Mushtaq Murphy APRN 10/31/2024 11:00 AM EST Office Visit Cardiology at [address] [address] Mushtaq Murphy, FREDRICK documented as of this [...] giddiness documented in this encounter Care Teams Marketing Automation Analyst Relationship Specialty Start Date End Date Anibal Mtz MD [address] [place] [address] PCP - General Family Medicine 01/17/19 11/17/22 documented as of this encounter
--- OUTSIDE RECORDS SUMMARY | 2024-10-03 10:57 | XMS_ITS | Encounter Summary ---
[place] [address] Care Team Providers Care Trailer Technician Name Role Phone Unknown Primary Care Provider Unavailabl e Encounter Details Date Type Department Care Team (Late st Contact Info) Description 12/03/2018 Interpretation Only [address] [phone] Ac Albrecht PA [address] [place] [address] [place] [address] Social History Tobacco Use Types Packs/Day Years [...] 9:30 AM EST Appointment Non-Invasive [place] [phone] Mushtaq Murphy APRN 10/31/2024 11:00 AM EST Office Visit Cardiology at [address] [phone] Mushtaq Murphy APRN documented as [...] below. ? Electronically signed by: Darvin Noyola [facility] ([phone]), at 12/03/2018 1:33 PM Narrative 12/03/2018 1:38 [...] number below. Electronically signed by: Darvin Noyola [facility]([phone]), at 12/03/2018 1:33 PM Ac SERRANO IMG DX ORDERABLES documented in this encounter Visit Diagnoses Not on filedocumented in this encounter Care Teams Trailer Technician Relationship Specialty Start Date End Date Unknown None PCP - General 08/04/10 01/16/19 documented as of this encounter
--- OUTSIDE RECORDS SUMMARY | 2024-10-03 10:57 | XMS_ITS | Encounter Summary ---
Author Organization [facility] [place] [address] Care Team Providers Care Marine Pipefitter Helper Name Role Phone Unknown Primary Care Provider Unavailabl e Encounter Details Date Type Department Care Team (Late st Contact Info) Description 01/13/2019 9:05 PM EDT Ancillary Procedure Radiology Library at [facility] [place] [phone] Sunny Aviles MD [facility] [place] [address] Social History Tobacco Use Types Packs/Day Years [...] 9:30 AM EST Appointment Non-Invasive [place] [address] Mushtaq Murphy APRN 10/31/2024 11:00 AM EST Office Visit Cardiology at [address] [phone] Mushtaq Murphy, FREDRICK documented as of this encounter Procedures Procedure Name Priority Date/Time Associated Diagnosis Comments FILM LIBRARY STORAGE ONLY CT HEAD AND SPINE Routine 01/13/2019 9:04 PM EDT documented in this encounter Results * Film Library- Storage Only CT Head And Spine (01/13/2019 9:04 PM EDT) Narrative DERICK - 01/13/2019 9:04 PM EDT This exam is auto-finalizing. It's purpose is for storage only. Sunny Aviles MD IMG FILM LIBRARY ORDERABLES Performing Organization Address City/State/[facility] Co de Phone Number [place], [place] documented in this encounter Visit Diagnoses Not on filedocumented in this encounter Care Teams Marine Pipefitter Helper Relationship Specialty Start Date End Date Unknown None PCP - General 08/04/10 01/16/19 documented as of this encounter
--- OUTSIDE RECORDS SUMMARY | 2024-10-05 10:01 | XMS_ITS | Encounter Summary ---
[place] [address] Care Team Providers Care Director Data Analytics Name Role Phone Alexia Mtz FREDRICK Primary Care Provider Encounter Details Date Type Department Care Team (Late st Contact Info) Description 09/21/2024 External Results Non-Invasive [place] [phone] Social History Tobacco Use Types Packs/Day Years Used Date Smoking Tobacco: Former Cigarettes Smokeless Tobacco: Never Alcohol Use Standard Drinks/Week Comments Not Currently 0 (1 standard drink = 0.6 oz pur e alcohol) [facility] Utilities Answer Date Recorded In [...] time in the past 12 m [facility], were you homeless or living [...] 9:30 AM EST Appointment Non-Invasive [place] [address] Mushtaq Murphy APRN 10/31/2024 11:00 AM EST Office Visit Cardiology at [address] [phone] Mushtaq Murphy APRN documented as of this encounter Procedures Procedure Name Priority Date/Time Associated Diagnosis Comments EEG SCAN Routine 07/29/2024 9:44 AM EST documented in this encounter Results * Scan Doc: EEG (07/29/2024 9:44 AM EST) Historical Provider MD CLANCY MGR SCAN EX T ORDR/RSLT documented in this encounter Visit Diagnoses Not on filedocumented in this encounter Care Teams Director Data Analytics Relationship Specialty Start Date End Date Alexia Mtz APRN [address] [place] [id number] PCP - General Family Medicine 11/18/24 documented as of this encounter
--- OUTSIDE RECORDS SUMMARY | 2024-10-05 10:01 | XMS_ITS | Clinical Summary ---
Author Organization [facility] [place] [address] Care Team Providers Care Locomotive Electrician Name Role Phone Alexia Mtz FREDRICK Primary Care Provider [phone] Allergies No known active allergies Medications Medication [...] Chest pain. 90 tablet 12 08/04/2024 Active spironolactone (Aldactone) 25 mg tablet Take 1 tablet by mouth daily for 90 days. 30 tablet 2 10/02/2024 12/31/2024 Active Active Problems Problem Noted Date Diagnosed Date STEMI (ST elevation myocardial infarction) 07/29 Dizziness 02/07/2019 Encounters Date Type Department Care Team Description 10/02/2024 Notes Only Cardiology at [address] [phone] 10/02/2024 Telephone Cardiology at [address] [phone] Tre Gibbons RN 10/01/2024 1:55 PM EST Laboratory Appointment Lab [address] [place] [address] HFrEF (heart failure with reduced ejection fraction) 10/01/2024 11:00 AM EST - 10/01/2024 11:59 PM EST Hospital Encounter Non-[place] [address] Mushtaq Royal APRN HFrEF (heart failure with reduced ejection fraction) Discharge Disposition: Home 10/01/2024 10:00 AM EST Office Visit Cardiology at [address] [phone] Mushtaq Royal, FREDRICK HFrEF (heart failure with reduced ejection fraction); ST elevation myocardial infarction involving left anterior descending (LAD) coronary artery 10/01/2024 Telephone Cardiology at [address] [phone] Chloe Ramos 10/01/2024 Travel 09/21/2024 External Results Non-Invasive [place] [address] 07/31/2024 4:30 PM EST - 07/31/2024 5:30 PM EST Surgery [employer] [place] [address] Maldonado Luis MD CARDIAC CATHETERIZATION 07/29/2024 6:32 PM EST - 07/29/2024 11:59 PM EST Hospital Encounter [facility] at [address] [address] Arvin Becerra MD Discharge Disposition: Home 07/29/2024 12:00 PM EST - 07/29/2024 12:54 PM EST Surgery [facility] [employer] [facility] [place] [phone] Vahe Marvin MD CARDIAC CATHETERIZATION 07/29/2024 11:45 AM EST - 08/04/2024 5:00 PM EST Hospital Encounter Cardiovascular [place] [phone] Vahe Marvin MD Dadekian, MD Keith Richter, MD Eh Galvez Poornima, MD Kostojchin, Anastas, MD Kussaga, Sanjiv Hoffmann MD ST elevation myocardial infarction involving left anterior descending (LAD) coronary artery; HFrEF (heart failure with reduced ejection fraction) Discharge Disposition: Home 07/29/2024 Orders Only [facility] [place] [phone] Susannah Watts PA 07/29/2024 Interpretation Only [address] [phone] Deondre Ferrera MD 07/29/2024 Notes Only Cardiology [place] [phone] Ivan Hernandez MD 07/29/2024 External Results Emergency Department [place] [phone] 07/28/2024 Interpretation Only [address] [phone] Quinten Coffey MD from Last 3 Months [...] 9:30 AM EST Appointment Non-Invasive [place] [address] Mushtaq Royal, VIDEO OPERATOR 10/31/2024 11:00 AM EST Office Visit Cardiology at [address] [phone] Mushtaq Royal, VIDEO OPERATOR Health Maintenance Due Date Last Done Comments CT Colonography 1950 FIT DNA 1950 FIT 1950 Sigmoidoscopy 1950 Hepatitis C Screening 1970 Pneumoccocal Vaccine: 50+ (1 of 2 - PCV) 1971 Tetanus/Diphtheria/Pertussis Vaccines (1 - Tdap) 1971 Zoster vaccine (1 of 2) 2002 Advance Directive 2007 RSV Vaccine (1 - Risk 60-74 years 1-dose series) 2012 AAA Screen 2017 Covid-19 Vaccine ( - season) 2024 Colonoscopy 08/30/2033 08/30/2023, 08/30/2023 [...] VIEW STAT 07/29/2024 10: 50 AM EST [facility] EXTERNAL CARDIOLOGY RESULT Routine 07/29/2024 10:13 AM EST EEG SCAN Routine 07/29/2024 9:44 AM EST XR CHEST ONE VIEW STAT 07/28/2024 10: 22 AM EST COLONOSCOPY Routine 08/30/2023 10:57 AM EST from Last 3 Months or Most Recently Relevant to Health Maintenance Results * (ABNORMAL) pro-Brain Natriuretic Peptide (10/01/2024 12:33 PM EST) NT-proBNP 2,150(H) <=124 pg/mL 10/01/2024 1:18 PM EST [facility] Blood VENOUS BLOOD SPECIMEN / Unknown Venipuncture / Unknown 10/01/2024 12:33 PM EST 10/01/2024 12:38 PM EST Mushtaq Royal VIDEO OPERATOR CHEMISTRY ORDERABLE S Performing Organization Address City/[facility]/ZIP Co de Phone Number [facility] [place] [address] * Magnesium (10/01/2024 12:33 PM EST) Only the most recent of9 resultswithin the time period is included. Pathologist [facility] Magnesium 0.94 0.69 - 1.07 mMol/L 10/01/2024 1:18 PM EST [facility] Blood VENOUS BLOOD SPECIMEN / Unknown Venipuncture / Unknown 10/01/2024 12:33 PM EST 10/01/2024 12:38 PM EST Mushtaq Royal VIDEO OPERATOR CHEMISTRY ORDERABLE S [facility] [place] [address] * Comprehensive metabolic panel Non-fasting (10/01/2024 12:33 [...] [facility] Bilirubin, Total 0.4 <=1.3 mg/dL 10/01/2024 1:18 PM EST [facility] Est Glomerular Filtration Rate - Male 75 mL/min/1. 73 m?? 10/01/2024 1:18 PM EST [facility] [...] Fasting Status No 10/01/2024 1:18 PM EST [facility] Blood VENOUS BLOOD SPECIMEN / Unknown Venipuncture / Unknown 10/01/2024 12:33 PM EST 10/01/2024 12:38 PM EST Mushtaq Royal APRN CHEMISTRY ORDERABLE S [facility] [place] [address] * ECHO LMTD W CONTRAST W LMTD SPEC DOPP COLOR DOPP (10/01/2024 12:15 PM EST) EF 33 HEARTLAB SYSTEM Anatomical Region Laterality Modality Cardiac Other 10/01/2024 11:0 6 AM EST Narrative 10/01/2024 1:22 PM EST [address] [place] [address] ? Echocardiogram Report Name: KOREY MONTOYA ? Study Date: 10/01/2024 11:06 AMBP: 119/78 mmHg : 1950 ? Height: 168 cm ? Account: [id number] Age: 74 yrs ? Weight: 62 kg Gender: Male ?BSA: 1.7 m2 Ordering Physician: MUSHTAQ ROYAL Referring Physician: MUSHTAQ ROYAL Performed By: OMERO Baez Reason For Study: Chest pain Exam Location: [facility]. Interpretation Summary Left ventricular systolic function [...] the findings are similar. Procedure Limited - 72211. Image enhancement Optison was used for left [...] Note Pablo Tam MD - 10/01/2024 [address] [place] [address] Echocardiogram Report Name: KOREY MONTOYA Study Date: 511:06 AMBP: 119/78 mmHg : 1950 Height: 168 cm Account: [id number] Age: 74 yrs Weight: 62 kg Gender: Male BSA: 1.7 m2 Ordering Physician: MUSHTAQ ROYAL Referring Physician: MUSHTAQ ROYAL Performed By: OMERO Baez Reason For Study: Chest pain Exam Location: [facility]. Interpretation Summary Left ventricular systolic function [...] 07/30/2024, the findings aresimilar. Procedure Limited - 28981. Image enhancement Optison was used for left [...] (Bezet) 428 ms MUSE SYSTEM Calculated P Tyrone 83 degrees MUSE SYSTEM Calculated R Tyrone 88 degrees MUSE SYSTEM Calculated T Tyrone 159 degrees MUSE SYSTEM INTERPRETATION Normal sinus rhythm Low voltage QRS 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) T wave abnormality, consider lateral ischemia ACUTE WI / STEMI Abnormal ECG When [...] - 9.50 x10(3)/mc L 08/04/2024 6:39 AM EST [facility] Red Blood Cell 4.28(L) [...] MD HEMATOLOGY ORDERABLE S Performing Organization Address City/State/[facility] Co de Phone Number [facility] [place] [address] * Basic Metabolic Panel (08/04/2024 6:08 AM [...] CHEMISTRY ORDERABLES [facility] [place] [address] * POC, GLUCOSE (08/02/2024 7:47 AM EST) [...] O RDERABLES [facility] [place] [address] * Scan Doc: Telemetry Strips (08/02/2024 7:37 [...] ORDERABL ES [facility] [place] [address] * (ABNORMAL) Cooximetry, POC (08/01/2024 10:45 AM [...] City/State/[facility] Co de Phone Number [facility] [place] [address] * CARDIAC CATHETERIZATION (07/31/2024 5:53 PM EST) Only the most recent of2 resultswithin the time period is included. Anatomical Region Laterality Modality Other Narrative 08/01/2024 12:37 PM EST ?[facility] ? Cardiac Catheterization/Intervention Report ? Patient Name: Korey Montoya Kyrie. ? Procedure Date: 07/31/2024 ? A #: [id number] ? Primary Physician: Janelle, Maldonado T ? Case #: [id number] ? File Name: [id number] ? Catheterization Order Number: [id number] ? [facility] ? Final Report [place], [place] ? Patient Name: ? Korey P. Montoya ?ID#: ?[id number] ? : ?1950 ? Procedure Date: ? July 31, 2024 ?Case #: ? [id number] ? Room: ? 1 ? Case Physician: ? Dior MishraDToby ?Start: ?17:10 ? Admission: ??07/29/2024 ? Referring [...] ? Comments: ?Impella removed from the right KELP CUTTER with deployment of Perclose and ?Angioseal. ??Good [...] Procedure Note Maldonado Luis MD - 08/01/2024 [facility] Cardiac Catheterization/Intervention Report Patient Name: Korey MontoyaToby Procedure Date: 07/31/2024 A #: [id number] Primary Physician: Maldonado Luis Case #: [id number] File Name: [id number] Catheterization Order Number: [id number] [facility] FinalReport [place], [place] Patient Name: Korey Montoya ID#:[id number] :1950 Procedure Date: July 31, 2024 Case [...] was designated as ASA Class IV. The [facility] clinical frailtyscale is 4: Vulnerable. Diagnostic [...] procedures. Comments: Impella removed from the right KELP CUTTER with deployment of Perclose and Angioseal. Good hemostasis. The attending physician was present for the entire procedure. Dr. Maldonado Luis M.D. was present during the moderate sedation intraservice time as documented by the sedation nurse. Case time =00:35. Dr. Maldonado T Janelle, M.D. performed the vascular [...] O RDERABLES [facility] [place] [address] * (ABNORMAL) Hepatic Function Panel (07/31/2024 1:08 AM EST) Albumin 3.1(L) 3.2 - 5.2 g/dL 07/31/2024 1:46 AM [facility] Aspartate Aminotransferase 192(H) <=39 unit/L 07/31/2024 1:46 AM [facility] Alanine Aminotransferase 59(H) 0 - 55 unit/L 07/31/2024 1:46 AM [facility] Alkaline Phosphatase 46 40 - 130 unit/L 07/31/2024 1:46 AM EST [facility] Bilirubin, Total 0.4 <=1.3 mg/dL 07/31/2024 1:46 AM EST [facility] Bilirubin, Direct <0.2 0.0 - 0.3 mg/dL 07/31/2024 1:46 AM EST [facility] Protein, Total 5.0(L) 6.1 - 8.0 g/dL 07/31/2024 1:46 AM EST [facility] Blood VENOUS BLOOD SPECIMEN / Unknown Venipuncture / Unknown 07/31/2024 1:08 AM EST 07/31/2024 1:18 AM EST Arnel Parker MD CHEMISTRY ORDERABLES Performing Organization Address [facility]/ZIP Co de Phone Number [facility] [place] [address] * (ABNORMAL) Phosphorus (07/30/2024 3:08 PM EST) Only the most recent of3 resultswithin the time period is included. Phosphorus 2.1(L) 2.5 - 4.5 mg/dL 07/30/2024 3:58 PM EST [facility] Blood VENOUS BLOOD SPECIMEN / Unknown Venipuncture / Unknown 07/30/2024 3:08 PM EST 07/30/2024 3:12 PM EST Jay Silverio MD CHEMISTRY ORDERABL ES Performing Organization Address City/[facility]/ZIP Co de Phone Number [facility] [place] [address] * ECHO LMTD W CONTRAST W LMTD SPEC DOPP COLOR DOPP (07/30/2024 11:42 AM EST) Anatomical Region Laterality Modality Cardiac Other 07/30/2024 10:2 2 AM EST Narrative 07/30/2024 12:34 PM EST [address] [place] [address] ? Echocardiogram Report Name: KOREY MONTOYA ? Study Date: 07/30/2024 10:22 AMBP: 124/66 mmHg : 1950 ? Height: 168 cm ? Account: [id number] Age: 74 yrs ? Weight: 65 kg Gender: Male ?BSA: 1.7 m2 Ordering Physician: Jay Silverio MD Referring Physician: DEONDRE FERRERA Performed By: OMERO Millan Reason For Study: ST elevation myocardial infarction involving left anterior descending (LAD) coronary artery Interpreting Fellow: Ivan Hernandez. Exam Location: [facility]. Interpretation Summary Left ventricle is [...] Compared to the overnight study by the avionics mechanic fellow the impella position is stable. 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 Procedure Limited - 78789. Image enhancement Definity was used for both [...] Note Kathleen Banda MD - 07/30/2024 [address] [place] [address] Echocardiogram Report Name: KOREY MONTOYA Kyrie Study Date: 410:22 AMBP: 124/66 mmHg : 1950 Height: 168 cm Account: [id number] Age: 74 yrs Weight: 65 kg Gender: Male BSA: 1.7 m2 Ordering Physician: Jay Silverio MD Referring Physician: DEONDRE FERRERA Performed By: OMERO Millan Reason For Study: ST elevation myocardial infarction involving leftanterior descending (LAD) coronary artery Interpreting Fellow: Ivan Hernandez. Exam Location: [facility]. Interpretation Summary Left ventricle is [...] Compared to the overnight study by the avionics mechanic fellow the impella positionis stable. The global left ventricular systolic function has improvedpredominantly via recruitment outside the LAD territory which remains akinetic. Procedure Limited - 34620. Image enhancement Definity was used for both [...] can be found in the [facility] Test Catalog Troponin - [email or web address] Reference: Fourth [place] Definition of Myocardial Infarction. Journal of the [place] College [employer] 2018;72:5684-4427 Blood VENOUS BLOOD SPECIMEN / Unknown Venipuncture / Unknown 07/30/2024 8:09 AM EST 07/30/2024 8:26 AM EST Jay Silverio MD CHEMISTRY ORDERABL ES [facility] [place] [address] * Echocardiogram Transthoracic (07/30/2024 1:41 AM EST) Anatomical Region Laterality Modality Cardiac Other 07/30/2024 1:41 AM EST Narrative 07/30/2024 8:23 AM EST [address] [place] [address] ? Echocardiogram Report Name: KOREY MONTOYA ? Study Date: 07/30/2024 01:41 AM : 1950 ? Height: 168 cm Age: 74 yrs ? Weight: 5.9 kg Gender: Male ?BSA: 0.63 m2 Performed By: Beatris Ching MD Reason For Study: STEMI, VT History: ASCVD, HTN, HLD Interpreting Fellow: Beatris Ching. Interpretation Summary This is a limited study performed by a fellow avionics mechanic to evaluate for cardiogenic shock with impella [...] study available for comparison. Procedure Limited - 77777. Suboptimal quality. There is sinus bradycardia. Left [...] Note Kathleen Banda MD - 07/30/2024 [address] [place] [address] Echocardiogram Report Name: KOREY MONTOYA Study Date: 07/30/2024 01:41AM : 1950 Height: 168 cm Age: 74 yrs Weight: 5.9 kg Gender: Male BSA: 0.63 m2 Performed By: Beatris Ching MD Reason For Study: STEMI, VT History: ASCVD, HTN, HLD Interpreting Fellow: Beatris Ching. Interpretation Summary This is a limited study performed by a fellow avionics mechanic to evaluate forcardiogenic shock with impella in. [...] study available for comparison. Procedure Limited - 78657. Suboptimal quality. There is sinus bradycardia. Left [...] Silverio MD BLOOD BANK LAB ORD ERABLES [facility] [place] [id number] * Type and screen ([facility]/JONG/MAGALIE) (07/29/2024 5:56 PM EST) ABORH Type AB POSITIVE 07/29/2024 9:44 PM EST [facility] PATIENT HISTORY Not Found 07/29/2024 9:44 PM EST [facility] Expires at [id number] on: 08/01/2024 07/29/2024 9:44 PM EST [facility] ANTIBODY SCREEN AUTOMATED Negative 07/29/2024 9:44 PM EST [facility] T&S only valid at [facility] 07/29/2024 9:44 PM EST [place] [place] BANK LAB ORD ERABLES Performing Organization Address City/[facility]/ZIP Co de Phone Number [facility] [place] [address] * Blood culture (07/29/2024 4:08 PM EST) Only the most recent of2 resultswithin the time period is included. Blood Culture No growth at 120 hours 08/03/2024 5:01 PM EST [facility] Blood VENOUS BLOOD SPECIMEN / Unknown Venipuncture / Unknown 07/29/2024 4:08 PM EST 07/29/2024 4:15 PM EST Jay Silverio MD MICROBIOLOGY - BLO OD ORDERABLES Performing Organization Address [facility] Co de Phone Number [facility] [place] [address] * XR Chest One View (07/29/2024 2:30 PM EST) Only the most recent of3 resultswithin the time period is included. WORKSTATION ID [id number] [facility] Anatomical Region Laterality Modality Chest N/A Digital [...] questions please contact the health direct care staffer that requested your imaging first. ? Narrative [...] have questions please contactthe health direct care staffer that requested your imaging first. Vahe Marvin MD IMG DX ORDERABLES * TSH Godfrey (07/29/2024 2:03 PM EST) Thyroid Stimulating Hormone 0.70 0.27 - 4.20 mcIU/mL 07/29/2024 2:52 PM EST [facility] Blood VENOUS BLOOD SPECIMEN / Unknown Venipuncture / Unknown 07/29/2024 2:03 PM EST 07/29/2024 2:14 PM EST Vahe Marvin MD CHEMISTRY ORDERABLES Performing Organization Address [facility]/ZIP Co de Phone Number [facility] [place] [address] * CRP, acute inflammation (07/29/2024 2:03 PM EST) C-Reactive Protein <3.0 <=4.9 mg/L 07/29/2024 2:52 PM EST [facility] Blood VENOUS BLOOD SPECIMEN / Unknown Venipuncture / Unknown 07/29/2024 2:03 PM EST 07/29/2024 2:14 PM EST Vahe Marvin MD CHEMISTRY ORDERABLES Performing Organization Address [facility] Co de Phone Number [facility] [place] [address] * (ABNORMAL) APTT (07/29/2024 2:03 PM EST) Partial Thromboplastin Time >160(HHH) 25 - 37 sec 07/29/2024 2:56 PM EST [facility] Blood VENOUS BLOOD SPECIMEN / Unknown Venipuncture / Unknown 07/29/2024 2:03 PM EST 07/29/2024 2:13 PM EST Vahe Marvin MD HEMATOLOGY ORDERABLE S Performing Organization Address City/[facility]/ZIP Co de Phone Number [facility] [place] [address] * (ABNORMAL) Prothrombin Time (07/29/2024 2:03 PM [...] ORDERABLE S [facility] [place] [address] * Hemoglobin A1c (07/29/2024 2:03 PM EST) [...] red blood cell turnover may not be leather goods sales representative of glycemic control. Reference Interval: [...] EST 07/29/2024 2:14 PM EST [facility] - 07/29/2024 2:41 PM EST Estimated average glucose (eAG) is calculated from the equation described in: Quinten ALVES, Rikki Booth, [place] R, et al. ??Translating the A1C assay into estimated average glucose values. ??Diabetes Care 2008:31(8):1547-7772. Additional resources are available on the ADA website (diabetes.org). Vahe Marvin MD CHEMISTRY ORDERABLES [facility] [place] [address] * Lipid Panel (Reflex Direct LDL) (07/29/2024 2:03 PM EST) [facility] Cholesterol, Total 133 mg/dL 07/29/2024 2:52 PM [...] 07/29/2024 2:03 PM EST 07/29/2024 2:14 PM [facility]ORY - 07/29/2024 2:52 PM [...] ACC/AHA Guidelines (most recently Rolf et al. [facility] 06/15/22): * For individuals with atherosclerotic cardiovascular [...] CHEMISTRY ORDERABLES [facility] [place] [address] * (ABNORMAL) Blood Gas, Venous POC (07/29/2024 2:01 PM EST) pH, Venous 7.30(L) 7.32 - 7.42 07/29/2024 2:02 PM [facility] PCO2, Venous 42 38 - 58 mmHg 07/29/2024 2:02 PM [facility] PO2, Venous 39 16 - 65 mmHg 07/29/2024 2:02 PM [facility] Bicarbonate, Venous 20.1(L) 22 - 31 mmol/L 07/29/2024 2:02 PM [facility] Base Excess, Venous -6.4(L) 1.9 - 4.5 mmol/L 07/29/2024 2:02 PM [facility] Hemoglobin, Venous 14.2 13.7 - 16.5 g/dL 07/29/2024 2:02 PM [facility] Oxyhemoglobin, Venous 69.3 % 07/29/2024 2:02 PM [facility] Carboxyhemoglobin , Venous 0.8 % 07/29/2024 2:02 PM [facility] Comment: Nonsmokers: 0.5-1.5% COHB ?? Smokers: Variable ??but usually less than 10% ?? Toxic: 20-30% COHB ?? Lethal: Greater than 60% COHB Methemoglobin, Venous 0.3 <=1.5 % 07/29/2024 2:02 PM EST [facility] Sodium, Venous 137 135 - 145 mmol/L 07/29/2024 2:02 PM [facility] Potassium, Venous 3.6 3.5 - 5.0 mmol/L 07/29/2024 2:02 PM [facility] Chloride, Venous 103 98 - 107 mmol/L 07/29/2024 2:02 PM EST [facility] Glucose, Venous 229(H) [...] City/State/[facility] Co de Phone Number [facility] [place] [address] * (ABNORMAL) BLOOD GAS, POC (07/29/2024 12:46 [...] O RDERABLES [facility] [place] [id number] * External Cardiology Result (07/29/2024 10:13 AM EST) Anatomical Region Laterality Modality Other Historical Provider EXTERNAL CARDIOLO GY RESULT * Scan Doc: EEG (07/29/2024 9:44 AM EST) Historical Provider MEDIA MGR SCAN EX T ORDR/RSLT * COLONOSCOPY (08/30/2023 10:57 AM EST) COLONOSCOPY [facility] Endoscopy Procedure Date: 08/30/2023 10:57 AM ? Patient Name: Korey Montoya ? Date of : 1950 ? Age: 73 ? Order #: [id number] ? Instrument Name: [id number] ? Procedure: ? Colonoscopy Indications: ? Rectal [...] preparation was evaluated ? using the BBPS (Warren Bowel ? Preparation Scale) with scores of: [...] performed the entire procedure. ? UmerToby Mcgovern Umer Froilan, 08/30/2023 11:29:25 AM Number of Addenda: 0 Note Initiated On: 08/30/2023 10:57 AM PROVATION 08/30/2023 10:5 7 AM EST Yoel Artis VIDEO OPERATOR GENERAL SURGICAL ORD ERABLES PROVATION from Last 3 Months or Most Recently Relevant to Health Maintenance Advance Directives * Attempt Cardiopulmonary Resuscitation - Inpatient (Latest Code Status on File) Date Activated Date Inactivated Comments 07/29/2024 2:01 PM 08/04/2024 7:34 PM Question Answer Comments Code Status decision made by: Patient Content of discussion: pre-arrest limitations Care Teams Locomotive Electrician Relationship Specialty Start Date End Date Alexia Mtz APRN [address] [place] [address] PCP - General Family Medicine 07/30/24
--- OUTSIDE RECORDS SUMMARY | 2024-10-05 10:01 | XMS_ITS | Encounter Summary ---
[place] [address] Care Team Providers Care Historiography Professor Name Role Phone Alexia Mtz Shun ALCALA Primary Care Provider [phone] Reason for Referral * Diagnostic Test (Routine) - Closed Specialty Diagnoses / Procedures Referred By Contac t Referred To Contact Cardiology Diagnoses HFrEF (heart failure with reduced ejection fraction) Procedures Echocardiogram Transthoracic Rudolph Royal APRN [facility] [place] [address] Referral ID Status Reason Start Date Expiration Date V isits Requested Visits Authorized [id number] Closed Specialty Service Requested 10/01/2024 10/01/2025 1 1 Reason for Visit * Diagnostic Test (Routine) - Closed Specialty Diagnoses / Procedures Referred By Contac t Referred To Contact Cardiology Diagnoses HFrEF (heart failure with reduced ejection fraction) Procedures Echocardiogram Transthoracic Rudolph Royal APRN [facility] [place] [address] Referral ID Status Reason Start Date Expiration Date V isits Requested Visits Authorized [id number] Closed Specialty Service Requested 10/01/2024 10/01/2025 1 1 Encounter Details Date Type Department Care Team (Latest Contact Info) Description 10/01/2024 11:00 AM EST - 10/01/2024 11:59 PM EST Hospital Encounter [place] [address] Rudolph Royal APRN HFrEF (heart failure with reduced ejection fraction) Discharge Disposition: Home Social History Tobacco Use Types Packs/Day Years Used Date Smoking Tobacco: Former Cigarettes Smokeless Tobacco: Never Alcohol Use Standard Drinks/Week Comments Not Currently 0 (1 standard drink = 0.6 oz pur e alcohol) [facility] Utilities Answer Date Recorded In the past 12 months has th e electric, gas, oil, or water [employer] threatened to shut off services in your [...] for Chest pain. 90 tablet 12 08/04/2024 tamsulosin (Flomax) 0.4 mg capsule Take 0.8 mg by mouth daily. 08/28/2023 losartan (Cozaar) 25 mg tablet Take 25 mg by mouth daily. 12.5 mg daily 04/17/2023 Psyllium Seed-Sucrose (0) Powder Take by mouth. dapagliflozin propanediol (Farxiga) 10 mg tablet Take 1 tablet by mouth daily for 60 days. 30 tablet 1 08/04/2024 10/03/2024 spironolactone (Aldactone) 25 mg tablet Take 0.5 tablets by mouth daily for 90 days. 15 tablet 2 08/05/2024 10/02/2024 documented as of this encounter Plan of Treatment Upcoming Encounters Date Type Department Care Team (Late st Contact Info) Description 10/31/2024 9:30 AM EST Appointment Non-[place] [address] Rudolph Royal APRN 10/31/2024 11:00 AM EST Office Visit Cardiology at [address] [address] Rudolph Royal, RIGHT OF WAY CLEARER documented as of this encounter Procedures Procedure [...] EST Narrative 10/01/2024 1:22 PM EST [address] [place] [address] ? Echocardiogram Report Name: KOREY BERMUDEZ ? Study Date: 10/01/2024 11:06 AMBP: 119/78 mmHg : 1950 ? Height: 168 cm ? Account: [id number] Age: 74 yrs ? Weight: 62 kg Gender: Male ?BSA: 1.7 m2 Ordering Physician: RUDOLPH ROYAL Referring Physician: RUDOLPH ROYAL Performed By: OMERO Baez Reason For Study: Chest pain Exam Location: [facility]. Interpretation Summary Left ventricular systolic function is [...] the findings are similar. Procedure Limited - [id number]. Image enhancement Optison was used for left [...] Note Pablo Tam MD - 10/01/2024 [address] [place] [id number] Echocardiogram Report Name: KOREY BERMUDEZ Study Date: 1:06 AMBP: 119/78 mmHg : 1950 Height: 168 cm Account: [id number] Age: 74 yrs Weight: 62 kg Gender: Male BSA: 1.7 m2 Ordering Physician: RUDOLPH ROYAL Referring Physician: RUDOLPH ROYAL Performed By: OMERO Baez Reason For Study: Chest pain Exam Location: [facility]. Interpretation Summary Left ventricular systolic function is [...] 07/30/2024, the findings aresimilar. Procedure Limited - [id number]. Image enhancement Optison was used for left [...] mLs documented in this encounter Care Teams Historiography Professor Relationship Specialty Start Date End Date Alexia Mtz APRN [address] [place] [address] PCP - General Family Medicine 07/30/24 documented as of this encounter
--- OUTSIDE RECORDS SUMMARY | 2024-10-05 10:01 | XMS_ITS | Encounter Summary ---
[place] [address] Care Team Providers Care Bakery Assistant Name Role Phone Alexia Mtz FREDRICK Primary Care Provider [phone] Encounter Details Date Type Department Care Team (Latest Contact Info) Description 10/01/2024 1:55 PM EST Laboratory Appointment Lab [address] [phone] HFrEF (heart failure with reduced ejection fraction) Social History Tobacco Use Types Packs/Day Years Used Date Smoking Tobacco: Former Cigarettes Smokeless Tobacco: Never Alcohol Use Standard Drinks/Week Comments Not Currently 0 (1 standard drink = 0.6 oz pur e alcohol) [facility] Utilities Answer Date Recorded In the past 12 months has [employer], gas, oil, or water [employer] threatened to shut off services in your [...] any time in the past 12 m [facility], were you homeless or living in [...] 9:30 AM EST Appointment [place] [address] Mushtaq Murphy, FORESTRY CONSERVATION WORKER 10/31/2024 11:00 AM EST Office Visit Cardiology at [address] [address] Mushtaq Murphy, FORESTRY CONSERVATION WORKER documented as of this encounter Procedures Procedure [...] 65 - 199 mg/dL 10/01/2024 1:18 PM [facility] Comment:Glucose Concentratio n >=200 mg/dL plus symptoms is consistent with Diabetes Mellitus. Blood Urea Nitrogen 17 10 - 20 mg/dL 10/01/2024 1:18 PM [facility] Creatinine 1.06 0.80 - 1.50 mg/dL 10/01/2024 1:18 PM [facility] Sodium 142 135 - 145 mMol/L 10/01/2024 1:18 PM [facility] Potassium 4.1 3.5 - 5.0 mMol/L 10/01/2024 1:18 PM [facility] Chloride 105 98 - 107 mMol/L 10/01/2024 1:18 PM [facility] Carbon Dioxide 25 22 - 31 mMol/L 10/01/2024 1:18 PM [facility] Anion Gap 12 5 - 15 mMol/L 10/01/2024 1:18 PM [facility] Calcium 9.5 8.5 - 10.5 mg/dL 10/01/2024 1:18 PM [facility] Protein, Total 7.2 6.1 - 8.0 g/dL 10/01/2024 1:18 PM [facility] Albumin 4.3 3.2 - 5.2 g/dL 10/01/2024 1:18 PM [facility] Aspartate Aminotransferase 18 <=39 unit/L 10/01/2024 1:18 PM [facility] Alanine Aminotransferase 18 0 - 55 unit/L 10/01/2024 1:18 PM [facility] Alkaline Phosphatase 94 40 - 130 unit/L 10/01/2024 1:18 PM [facility] Bilirubin, Total 0.4 <=1.3 mg/dL 10/01/2024 1:18 PM [facility] Est Glomerular [...] EST 10/01/2024 12:38 PM EST Mushtaq Murphy FORESTRY CONSERVATION WORKER CHEMISTRY ORDERABLE S [facility] [place] [address] * Magnesium (10/01/2024 12:33 PM EST) Magnesium 0.94 0.69 - 1.07 mMol/L 10/01/2024 1:18 PM EST [facility] Blood VENOUS BLOOD SPECIMEN / Unknown Venipuncture / Unknown 10/01/2024 12:33 PM EST 10/01/2024 12:38 PM EST Mushtaq Murphy FORESTRY CONSERVATION WORKER CHEMISTRY ORDERABLE S [facility] [place] [address] * (ABNORMAL) pro-Brain Natriuretic Peptide (10/01/2024 12:33 PM EST) NT-proBNP 2,150(H) <=124 pg/mL 10/01/2024 1:18 PM EST [facility] Blood VENOUS BLOOD SPECIMEN / Unknown Venipuncture / Unknown 10/01/2024 12:33 PM EST 10/01/2024 12:38 PM EST Mushtaq Murphy FORESTRY CONSERVATION WORKER CHEMISTRY ORDERABLE S [place] [id number] documented in this encounter Visit Diagnoses Diagnosis HFrEF (heart failure with reduced ejection fraction) documented in this encounter Care Teams Bakery Assistant Relationship Specialty Start Date End Date Alexia Mtz APRN [address] [place] [address] PCP - General Family Medicine 07/30/24 documented as of this encounter
--- OUTSIDE RECORDS SUMMARY | 2024-10-05 10:01 | XMS_ITS | Encounter Summary ---
Author Organization [facility] [place] [address] Care Team Providers Care Fixed Wing Aircraft Flight Engineer Name Role Phone Alexia Mtz FREDRICK Primary Care Provider [phone] Encounter Details Date Type Department Care Team (Late st Contact Info) Description 10/02/2024 Telephone Cardiology at [address] [phone] Tre Gibbons, RN Social History Tobacco Use Types Packs/Day Years Used Date Smoking Tobacco: Former Cigarettes Smokeless Tobacco: Never Alcohol Use Standard Drinks/Week Comments Not Currently 0 (1 standard drink = 0.6 oz pur e alcohol) [facility] Utilities Answer Date Recorded In the past [...] any time in the past 12 m [facility], were you homeless or living [...] out to Mr. Montoya in response to [employer] message sent by Mushtaq Murphy APRN: I was looking through your chart and would like to increase your spironolactone to a full tab of 25 mg. Mr. Montoya return verbalizes understanding of the above. We also reviewed the civil rights investigator team and I encouraged him to call us anytime, as well as record weight and blood pressure regularly. documented in this encounter Plan of Treatment Upcoming Encounters Date Type Department Care Team (Late st Contact Info) Description 10/31/2024 9:30 AM EST Appointment Non-Invasive [place] [address] Mushtaq Murphy APRN 10/31/2024 11:00 AM EST Office Visit Cardiology at [address] [phone] Mushtaq Murphy APRN documented as of this encounter Visit Diagnoses Not on filedocumented in this encounter Care Teams Fixed Wing Aircraft Flight Engineer Relationship Specialty Start Date End Date Alexia Mtz, FREDRICK [address] [place] [address] PCP - General Family Medicine 07/30/24 documented as of this encounter
--- OUTSIDE RECORDS SUMMARY | 2024-10-05 10:01 | XMS_ITS | Encounter Summary ---
Author Organization [facility] [place] [address] Care Team Providers Care Machine Repairer Name Role Phone Alexia Mtz FREDRICK Primary Care Provider [phone] Encounter Details Date Type Department Care Team (Latest Contact Info) Description 10/01/2024 Travel Social History Tobacco Use Types Packs/Day Years Used Date Smoking Tobacco: Former Cigarettes Smokeless Tobacco: Never Alcohol Use Standard Drinks/Week Comments Not Currently 0 (1 standard drink = 0.6 oz pur e alcohol) [facility] Utilities Answer Date Recorded In the [...] 9:30 AM EST Appointment Non-[place] [address] Mushtaq Murphy, PUG MILL OPERATOR HELPER 10/31/2024 11:00 AM EST Office Visit Cardiology at [address] [address] Mushtaq Murphy, PUG MILL OPERATOR HELPER documented as of this encounter Visit Diagnoses Not on filedocumented in this encounter Care Teams Machine Repairer Relationship Specialty Start Date End Date Alexia Mtz APRN [address] [place] [address] PCP - General Family Medicine 07/30/24 documented as of this encounter
--- OUTSIDE RECORDS SUMMARY | 2024-10-05 10:01 | XMS_ITS | Encounter Summary ---
[place] [address] Care Team Providers Care Traverse Rod Assembler Name Role Phone Alexia Mtz FREDRICK Primary Care Provider [phone] Reason for Referral * Diagnostic Test (Routine) - Authorized Specialty Diagnoses / Procedures Referred By [facility] Referred To Contact Cardiology Diagnoses HFrEF (heart failure with reduced ejection fraction) Procedures Echocardiogram Transthoracic Mushtaq Royal APRN [facility] [place] [address] Referral ID Status Reason Start Date Expiration Date Visits Requested Visits Authorized [id number] Authorized Specialty Service Requested 10/02/2024 10/02/2025 1 1 * Consultation (Routine) - Authorized Specialty Diagnoses / Procedures [facility] Referred To Contact Cardiology Diagnoses HFrEF (heart failure with reduced ejection fraction) ST elevation myocardial infarction involving left anterior descending (LAD) coronary artery Mushtaq Royal APRN [facility] [place] [address] Referral ID Status Reason Start Date Expiration Date Visits Requested Visits Authorized [id number] Authorized Consult, Test & Treat 10/02/2024 10/02/2025 36 36 * Diagnostic Test (Routine) - Closed Specialty Diagnoses / Procedures Referred By Contac t Referred To Contact Cardiology Diagnoses HFrEF (heart failure with reduced ejection fraction) Procedures Echocardiogram Transthoracic Mushtqa Royal APRN [facility] [place] [address] Referral ID Status Reason Start Date Expiration Date V isits Requested Visits Authorized [id number] Closed Specialty Service Requested 10/01/2024 10/01/2025 1 1 * Consultation (Routine) - Authorized Specialty Diagnoses / Procedures Referred By Contac t Referred To Contact Diagnoses HFrEF (heart failure with reduced ejection fraction) NUTRITION Initial MNT Mushtaq Royal APRN Copeland, Jean M, [facility] [address] Referral ID Status Reason Start Date Expiration Date Visits Requested Visits Authorized [id number] Authorized Continuity of Care 10/01/2024 10/01/2025 1 1 Reason for Visit * Consultation (Routine) - Closed Specialty Diagnoses / Procedures Referred By Contac t Referred To Contact Cardiology Diagnoses HFrEF (heart failure with reduced ejection fraction) [facility] S/P D/C acute HFrEF Sanjiv Villagran MD [facility] [place] [address] Mushtaq Royal APRN [facility] [place] [address] Referral ID Status Reason Start Date Expiration Date V isits Requested Visits Authorized [id number] Closed Consult, Test & Treat 08/04/2024 08/04/2025 1 1 Encounter Details Date Type Department Care Team (Late st Contact Info) Description 10/01/2024 10:00 AM EST Office Visit Cardiology at [address] [address] Mushtaq Royal APRN HFrEF (heart [...] time in the past 12 m [facility], were you homeless or living [...] clinic for weight gain or any question [phone] documented in this encounter Progress Notes * Mushtaq Royal APRN - 10/01/2024 10:00 AM EST Images from the original note were not included. [facility] Section of Advanced Heart Failure Cardiology and Pulmonary Hypertension [facility] [place] [id number] Name: Korey Bermudez Date: 10/01/2024 Referring provider: Sanjiv Villagran MD [facility] [place] [place] [address] History of Present Illness 74 y.o. male with a past medical history of: Ischemic cardiomyopathy EF 33% CAD STEMI - 07/31/2024 - PCI to LAD HLD HTN BPH Patient was admitted on 07/29/2024 after being airlifted by helicopter to [facility] due tofindings of ST elevation patient had awoken that morning with substernal chest pain with bilateral arm discomfort. Patient reported that his discomfort was aching in character was an 8/10. He was seen at the outside hospital anterior, inferior, and lateral ST elevation on EKG. On arrival to [facility] heunderwent left heart catheterization which showed 100% [...] placed and he was transferred to the [facility] for an initial cardiac index of 1.97 which improved to 2.2 after Impella placement. Patient required hemodynamic support with vasopressors and eventually on dobutamine. Patient remained in the [facility] until downgraded on 08/01/2021. Patient was discharged from [facility] on 08/04/2024 and presents today in the [...] AR. MRI Non invasive ischemic evaluation [facility] 07/29/2024: Left main normal and free of disease. LAD, single discrete total occlusion of the proximal segment, left circumflex is normal. Disease, RCA normal and free of disease. Drug-eluting stent to the proximal and distal LAD [facility] 07/29/2024: (prior to impella) RA 16, [...] 9:30 AM EST Appointment [place] [address] Mushtaq Royal APRN 10/31/2024 11:00 AM EST Office Visit Cardiology at [address] [address] Mushtaq Royal APRN Scheduled Orders Name Type [...] 2,150(H) <=124 pg/mL 10/01/2024 1:18 PM EST [facility] Blood VENOUS BLOOD SPECIMEN / Unknown Venipuncture / Unknown 10/01/2024 12:33 PM EST 10/01/2024 12:38 PM EST Mushtaq Royal AIR GRINDER CHEMISTRY ORDERABLE S [facility] [place] [address] * Magnesium (10/01/2024 12:33 PM EST) Magnesium 0.94 0.69 - 1.07 mMol/L 10/01/2024 1:18 PM EST [facility] Blood VENOUS BLOOD SPECIMEN / Unknown Venipuncture / Unknown 10/01/2024 12:33 PM EST 10/01/2024 12:38 PM EST Mushtaq Royal AIR GRINDER CHEMISTRY ORDERABLE S Performing Organization Address City/[facility]/ZIP Co de Phone Number [facility] [place] [address] * Comprehensive metabolic panel Non-fasting (10/01/2024 12:33 PM EST) Glucose 76 65 - 199 mg/dL 10/01/2024 1:18 PM EST [facility] Comment:Glucose Concentratio n >=200 mg/dL plus symptoms is consistent with Diabetes Mellitus. Blood Urea Nitrogen 17 10 - 20 mg/dL 10/01/2024 1:18 PM [facility] Creatinine 1.06 0.80 - 1.50 mg/dL 10/01/2024 1:18 PM [facility] Sodium 142 135 - 145 mMol/L 10/01/2024 1:18 PM [facility] Potassium 4.1 3.5 - 5.0 mMol/L 10/01/2024 1:18 PM [facility] Chloride 105 98 - 107 mMol/L 10/01/2024 1:18 PM [facility] Carbon Dioxide 25 22 - 31 mMol/L 10/01/2024 1:18 PM [facility] Anion Gap 12 5 - 15 mMol/L 10/01/2024 1:18 PM [facility] Calcium 9.5 8.5 - 10.5 mg/dL 10/01/2024 1:18 PM [facility] Protein, Total 7.2 6.1 - 8.0 g/dL 10/01/2024 1:18 PM [facility] Albumin 4.3 3.2 - 5.2 g/dL 10/01/2024 1:18 PM [facility] Aspartate Aminotransferase 18 <=39 unit/L 10/01/2024 1:18 PM [facility] Alanine Aminotransferase 18 0 - 55 unit/L 10/01/2024 1:18 PM [facility] Alkaline Phosphatase 94 40 - 130 unit/L 10/01/2024 1:18 PM [facility] Bilirubin, Total 0.4 <=1.3 mg/dL 10/01/2024 1:18 PM [facility] Est Glomerular Filtration Rate - Male 75 mL/min/1. 73 m?? 10/01/2024 1:18 PM [facility] Comment: [...] Foundation Fasting Status No 10/01/2024 1:18 PM [facility] Blood VENOUS BLOOD SPECIMEN / Unknown Venipuncture / Unknown 10/01/2024 12:33 PM EST 10/01/2024 12:38 PM EST Mushtaq Royal AIR GRINDER CHEMISTRY ORDERABLE S [facility] [place] [address] * ECHO LMTD W CONTRAST W LMTD SPEC DOPP COLOR DOPP (10/01/2024 12:15 PM EST) EF 33 HEARTLAB SYSTEM Anatomical Region Laterality Modality Cardiac Other 10/01/2024 11:0 6 AM EST Narrative 10/01/2024 1:22 PM EST [address] [place] [address] ? Echocardiogram Report Name: KOREY BERMUDEZ ? Study Date: 10/01/2024 11:06 AMBP: 119/78 mmHg : 1950 ? Height: 168 cm ? Account: [id number] Age: 74 yrs ? Weight: 62 kg Gender: Male ?BSA: 1.7 m2 Ordering Physician: MUSHTAQ ROYAL Referring Physician: MUSHTAQ ROYAL Performed By: OMERO Baez Reason For Study: Chest pain Exam Location: [facility]. Interpretation Summary Left ventricular systolic function is [...] the findings are similar. Procedure Limited - [id number]. Image enhancement Optison was used for left [...] Note Pablo Tam MD - 10/01/2024 1 [place] [address] Echocardiogram Report Name: KOREY BERMUDEZ Study Date: 1:06 AMBP: 119/78 mmHg : 1950 Height: 168 cm Account: [id number] Age: 74 yrs Weight: 62 kg Gender: Male BSA: 1.7 m2 Ordering Physician: MUSHTAQ ROYAL Referring Physician: MUSHTAQ ROYAL Performed By: OMERO Baez Reason For Study: Chest pain Exam Location: [facility]. Interpretation Summary Left ventricular systolic function is [...] 07/30/2024, the findings aresimilar. Procedure Limited - [id number]. Image enhancement Optison was used for left [...] (Bezet) 428 ms MUSE SYSTEM Calculated P [place] 83 degrees MUSE SYSTEM Calculated R [place] 88 degrees MUSE SYSTEM Calculated T [place] 159 degrees MUSE SYSTEM INTERPRETATION Normal sinus rhythm Low voltage QRS 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) T wave abnormality, consider lateral ischemia ACUTE GA / STEMI Abnormal ECG When [...] fraction) documented in this encounter Care Teams Traverse Rod Assembler Relationship Specialty Start Date End Date Alexia Mtz, FREDRICK [address] [place] [address] PCP - General Family Medicine 07/30/24 documented as of this encounter
--- OUTSIDE RECORDS SUMMARY | 2024-10-05 10:01 | XMS_ITS | Encounter Summary ---
Author Organization [facility] [place] [address] Care Team Providers Care Cooker Loader Name Role Phone [employer]ia shell FREDRICK Primary Care Provider [phone] Encounter Details Date Type Department Care Team (Late st Contact Info) Description 10/01/2024 Telephone Cardiology at [address] [phone] Chloe Ramos Social History Tobacco Use Types [...] any time in the past 12 m [facility], were you homeless or living in a [...] AM EST Request for records faxed to [facility] at [phone]. documented in this encounter Plan of Treatment Upcoming Encounters Date Type Department Care Team (Late st Contact Info) Description 10/31/2024 9:30 AM EST Appointment Non-[place] [address] Mushtaq Murphy APRN 10/31/2024 11:00 AM EST Office Visit Cardiology at [address] [phone] Mushtaq Murphy APRN documented as of this encounter Visit Diagnoses Not on filedocumented in this encounter Care Teams Cooker Loader Relationship Specialty Start Date End Date Alexia Mtz APRN [address] [place] [address] PCP - General Family Medicine 11/18/24 documented as of this encounter
--- OUTSIDE RECORDS SUMMARY | 2024-10-05 10:01 | XMS_ITS | Encounter Summary ---
[facility] Address [facility] [place] [address] Care Team Providers Care Staking Press Operator Name Role Phone Alexia Mtz FREDRICK Primary Care Provider [phone] Encounter Details Date Type Department Care Team (Late st Contact Info) Description 10/02/2024 Notes Only Cardiology at [address] [id number] [address], RD [facility] [place] [address] Social History Tobacco Use Types Packs/Day Years Used Date Smoking Tobacco: Former Cigarettes Smokeless Tobacco: Never Alcohol Use Standard Drinks/Week Comments Not Currently 0 (1 standard drink = 0.6 oz pur e alcohol) [facility] Utilities Answer Date Recorded In the past 12 months has e [employer], gas, oil, or water [employer] threatened to shut off services in your [...] call-back number to schedule telehealth visit through building construction teacher: [phone] Option #2. documented in this encounter Plan of Treatment Upcoming Encounters Date Type Department Care Team (Late st Contact Info) Description 10/31/2024 9:30 AM EST Appointment Non-[place] [address] Mushtaq Murphy APRN 10/31/2024 11:00 AM EST Office Visit Cardiology at [address] [address] Mushtaq Murphy APRN documented as of this encounter Visit Diagnoses Not on filedocumented in this encounter Care Teams Staking Press Operator Relationship Specialty Start Date End Date Alexia Mtz APRN [address] [place] [address] PCP - General Family Medicine 07/30/24 documented as of this encounter
--- OUTSIDE RECORDS SUMMARY | 2024-10-05 10:02 | XMS_ITS | Encounter Summary ---
Author Organization [facility] Address [facility] [place] [address] Care Team Providers Care Tire Technician Name Role Phone [place] FerryAlexia shell Shun ALCALA Primary Care Provider [phone] Reason for Referral * Consultation (Routine) - Closed Specialty Diagnoses / Procedures Referred By Conteleazar t Referred To Contact Cardiology Diagnoses HFrEF (heart failure with reduced ejection fraction) [facility]INIC S/P D/C acute HFrEF Alex Small MD [facility] [place] [address] [place] [address] Mushtaq Murphy APRN [facility] [place] [address] Referral ID Status Reason Start Date Expiration Date V isits Requested Visits Authorized [id number] Closed Consult, Test & Treat 08/04/2024 08/04/2025 1 1 * Consultation (Routine) - Pending Review Specialty Diagnoses / Procedures Referred By Contac t Referred To Contact Cardiology Diagnoses ST elevation myocardial infarction involving left anterior descending (LAD) coronary artery Yrn Ward MD [facility] [place] [address] Cardiac Rehab, [facility] [address] [place] [address] Referral ID Status Reason Start Date Expiration Date Visits Requested Visits Authorized [id number] Pending Review Consult, Test & Treat 01/31/2025 36 36 Reason for Visit * Auth/Cert (Routine) Specialty Diagnoses / Procedures Referred By Contac t Referred To Contact Diagnoses STEMI (ST elevation myocardial infarction) STEMI Procedures ER IPI Vahe Marvin MD [facility] [place] [address] [facility] Referral ID Status Reason Start Date Expiration Date Visits Re quested Visits Authorized [id number] 1 1 Encounter Details Date Type Department Care Team (Latest Contact Info) Description 07/29/2024 11:45 AM EST - 08/04/2024 5:00 PM EST Hospital [place] [id number] Vahe Marvin MD [facility] [place] [address] Aubree iSlverio MD [facility] [place] [address] Krystal Parker MD [facility] [place] [address] Bridgette Stauffer MD [facility] [place] [address] Yrn Ward MD [facility] [place] [address] Alex Small MD [facility] [place] [address] ST elevation myocardial infarction involving left anterior descending (LAD) coronary artery; HFrEF (heart failure with reduced ejection fraction) Discharge Disposition: Home Social History Tobacco Use Types Packs/Day Years Used Date Smoking Tobacco: Former Cigarettes Smokeless Tobacco: Never Alcohol Use Standard Drinks/Week Comments Not Currently 0 (1 standard drink = 0.6 oz pur e alcohol) [facility] Utilities Answer Date Recorded In the past [...] any time in the past 12 m [facility], were you homeless or living [...] Korey Montoya Patient Age: 74 y.o. Language: Vincentian Race: White Ethnicity: Not nor Admit date: [...] through the [facility] Electrical Intern . Issues afterhours and on weekends will [...] P-level 6 at time of transfer to [facility]. CI initially 1.97, improved to [...] the next year. Access was via right PIPE FITTER SUPERVISOR and this sitewas clean, dry and [...] for Chest pain. Replaces: nitroGLYcerin 400 mcg/spray [place], Non-Aerosol 0.4 mg Quantity: 90 tablet Refills: [...] Refills: 0 STOPPED Medications nitroGLYcerin 400 mcg/spray [place], Non-Aerosol Commonly known as: NITROLINGUAL Replaced by: [...] of one year. After this time, your development professional will determine if you need to continue [...] away. Stay on the phone. The emergency plant attendant or assistant operator will tell you what to do. [...] appointments: During 8am-5pm Tuesday through Tuesday call [phone] to speak with a nurse in the cardiology clinic All other times call [phone] and ask to speak to the configuration management architect field irrigation worker. Follow up Appointments: PCP Alexia Mtz, CERTIFIED SOCIAL WORKERS IN HEALTH CARE [phone]. Please call to establish a follow up appointment within 1-2 weeks of discharge. Cardiology. Referral to heart failure has been sent. General Instructions None Future Appointments and Orders Future Orders Complete By Expires Referral to Cardiac Rehab [EKA595 Custom] As directed Process Instructions: If no progress note charted, please enter Clinical details in comments. Scheduling Instructions: Questions: My question or request is: STEMI, PCI- cardiac rehab at [facility] Referral to Cardiology [REF12 Custom] As directed [...] of one year. After this time, your development professional will determine if you need to continue [...] away. Stay on the phone. The emergency plant attendant or assistant operator will tell you what to do. [...] appointments: During 8am-5pm Tuesday through Tuesday call [phone] to speak with a nurse in the cardiology clinic All other times call [phone] and ask to speak to the configuration management architect field irrigation worker. Follow up Appointments: PCP Alexia Mtz, CERTIFIED [employer] WORK[employer] IN HEALTH CARE [phone]. Please call to establish a follow up [...] home with 2 NAOMI. 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 He [...] Total time: 35 (tef) minutes Time IN/OUT: [phone] ZAIDA DUBOSE, PT Pager: [phone] Physical Therapy Inpatient Rehabilitation Department * Yrn Ward MD - 08/03/2024 10:38 AM EST CV HOSPITALIST 2 - [facility] DAILY PROGRESS NOTE Page [phone] to reach a provider 04/04 Admit Date: [...] Compared to the overnight study by the field irrigation worker fellow the impella position is stable. 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 [facility] 07/29/24 Conclusions: * One vessel coronary artery disease (LAD) * Mild pulmonary hypertension * Elevated pulmonary capillary wedge pressure * Successful stent insertion of the proximal LAD lesion * See Dual Antiplatelet (DAPT) Recommendations above * Successful impella placement for cardiogenic shock. Telemetry: I have personally reviewed and interpreted the telemetry from the last 24 hours. [facility] Assessment: ASSESSMENT: Korey Montoya [...] to be determined OT: PCP Alexia Mtz, CERTIFIED [employer] WORK[employer] IN HEALTH CARE [phone] * Zaida Dubose, PT - 08/02/2024 2:08 [...] home with 2 NAOMI. 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 He [...] Total time: 37 (eval) minutes Time IN/OUT: [phone] ZAIDA DUBOSE PT Pager: [phone] Physical Therapy Inpatient Rehabilitation Department * Gagan [...] P-level 6 at time of transfer to [facility]. CI initially 1.97, improved to 2.2 After impella. Received about 3 L of fluid during procedural course. Patient initially required norepinephrine 30, epinephrine 10, and vasopressin 0.04 for hemodynamic support, which was weaned upon arrival to [facility] to norepinephrine 20and levo 0.04 [...] PCP: Alexia Mtz APRN PCP phone number: [phone] Date of Admission: 07/29/2024 ( Hospital Day [...] 07/29/24 1621 PHART 7.48* 7.44 7.38 7.37 [id number] 29* 29* 34* 36 PO2ART 71* 109* 141* 71* CVE3HQB 20.6 19.4* 19.5* 20.4 VBG (Venous Blood Gas) Recent Labs 07/29/24 1401 PHVEN 7.30* PO2VEN 39 NJP6COR 20.1* Mixed Venous Sat No results for input(s): Z7CRLY0 in the last 168 hours. Objective: Vitals [...] 07/29/24 1621 PHART 7.48* 7.44 7.38 7.37 HMB6IPR 29* 29* 34* 36 PO2ART 71* 109* 141* 71* EZY2END 20.6 19.4* 19.5* 20.4 VBG (Venous Blood Gas) Recent Labs 07/29/24 1401 PHVEN 7.30* PO2VEN 39 LTG9YTV 20.1* Mixed Venous Sat No results for input(s): Z1ENUE5 in the last 168 hours. Microbiology: Microbiology Results (Last 30 days) Procedure Component Value Units Date/Time Blood culture [[id number]] Collected: 07/29/241607 Lab Status: Preliminary result Specimen: Blood, Venous Updated: 08/01/241700 Blood Culture No growth at 72 hours Blood culture [[id number]] Collected: 07/29/241607 Lab Status: Preliminary result Specimen: Blood, Venous Updated: 08/01/241700 Blood Culture No growth at 72 hours Imaging: Results for orders placed or performed during the hospital encounter of 07/29/24 XR Chest One View (Exam End: 07/29/2024 2:30 PM) Result Value WORKSTATION ID [id number] Impression 1. No pulmonary edema. 2. No pleural effusion. 3. No pneumothorax. Thank you for letting us participate in the care of this patient. If you are a health care provider and have any questions regarding this report, please contact the number below. For patients who have questions please contact the health career specialist that requested your imaging first. Electronically signed by: Chris Candelaria MD, [facility] ([phone]), at 07/29/2024 3:21 PM TTE ( 07/30/24) [...] Compared to the overnight study by the field irrigation worker fellow the impella position is stable. The [...] today). Transfer to floor. Krystal Parker MD, [facility] Staff Car Wiper mortgage funder * Gagan Catherine MD - 08/01/2024 11:12 [...] PCP: Alexia Mtz APRN PCP phone number: [phone] Date of Admission: 07/29/2024 ( Hospital Day [...] 07/29/24 1621 PHART 7.48* 7.44 7.38 7.37 CQY4SMH 29* 29* 34* 36 PO2ART 71* 109* 141* 71* OCP2ZBN 20.6 19.4* 19.5* 20.4 VBG (Venous Blood Gas) Recent Labs 07/29/24 1401 PHVEN 7.30* PO2VEN 39 IBP9UQJ 20.1* Mixed Venous Sat No results for input(s): S4XXSI6 in the last 168 hours. PA Catheter [...] 07/29/24 1621 PHART 7.48* 7.44 7.38 7.37 MEV4OWX 29* 29* 34* 36 PO2ART 71* 109* 141* 71* ZSW6WTL 20.6 19.4* 19.5* 20.4 VBG (Venous Blood Gas) Recent Labs 07/29/24 1401 PHVEN 7.30* PO2VEN 39 MWU0HGX 20.1* Mixed Venous Sat No results for input(s): L8XLCO1 in the last 168 hours. Microbiology: Microbiology Results (Last 30 days) Procedure Component Value Units Date/Time Blood culture [[id number]] Collected: 07/29/241607 Lab Status: Preliminary result Specimen: Blood, Venous Updated: 07/31/24 170 Blood Culture No growth at 48 hours Blood culture [[id number]] Collected: 07/29/241607 Lab Status: Preliminary result Specimen: Blood, Venous Updated: 07/31/24 170 Blood Culture No growth at 48 hours Imaging: Results for orders placed or performed during the hospital encounter of 07/29/24 XR Chest One View (Exam End: 07/29/2024 2:30 PM) Result Value WORKSTATION ID [id number] Impression 1. No pulmonary edema. 2. No pleural effusion. 3. No pneumothorax. Thank you for letting us participate in the care of this patient. If you are a health care provider and have any questions regarding this report, please contact the number below. For patients who have questions please contact the health career specialist that requested your imaging first. Electronically signed by: Chris Candelaria MD, [facility] ([phone]), at 07/29/2024 3:21 PM TTE ( 07/30/24) [...] Compared to the overnight study by the field irrigation worker fellow the impella position is stable. The [...] Susannah Ornelas MD Internal Medicine, PGY-1 Cardiology, [facility] 08/01/24 7:13 AM CARDIOLOGY STAFF NOTE [...] him; questions answered. Krystal Parker MD, FAC, [facility] Staff Car Wiper mortgage funder * Krystal Parker MD - 07/31/2024 1:06 [...] ILL WITH THESE DIAGNOSES BEING MANAGED BY [facility] TEAM: # Anterior STEMI, late-presenting # [...] P-level 6 at time of transfer to [facility]. CI initially 1.97, improved to 2.2 After impella. Received about 3 L of fluid during procedural course. Patient initially required norepinephrine 30, epinephrine 10, and vasopressin 0.04 for hemodynamic support, which was weaned upon arrival to [facility] to norepinephrine 20and levo 0.04 [...] PCP: Alexia Mtz APRN PCP phone number: [phone] Date of Admission: 07/29/2024 ( Hospital Day [...] 0057 07/29/24 1621 PHART 7.44 7.38 7.37 UPY9CTE 29* 34* 36 PO2ART 109* 141* 71* OGQ2CGN 19.4* 19.5* 20.4 VBG (Venous Blood Gas) Recent Labs 07/29/24 1401 PHVEN 7.30* PO2VEN 39 GUK3HVC 20.1* Mixed Venous Sat No results for input(s): M7WBCR3 in the last 168 hours. PA Catheter [...] 0057 07/29/24 1621 PHART 7.44 7.38 7.37 DEO2WAC 29* 34* 36 PO2ART 109* 141* 71* TCC1VKC 19.4* 19.5* 20.4 VBG (Venous Blood Gas) Recent Labs 07/29/24 1401 PHVEN 7.30* PO2VEN 39 SYP4EJL 20.1* Mixed Venous Sat No results for input(s): N5JNPU1 in the last 168 hours. Microbiology: Microbiology Results (Last 30 days) Procedure Component Value Units Date/Time Blood culture [[id number]] Collected: 07/29/241607 Lab Status: Preliminary result Specimen: Blood, Venous Updated: 07/30/241700 Blood Culture No Growth at 18-24 hrs. Blood culture [[id number]] Collected: 07/29/241607 Lab Status: Preliminary result Specimen: Blood, Venous Updated: 07/30/241700 Blood Culture No Growth at 18-24 hrs. Imaging: Results for orders placed or performed during the hospital encounter of 07/29/24 XR Chest One View (Exam End: 07/29/2024 2:30 PM) Result Value WORKSTATION ID [id number] Impression 1. No pulmonary edema. 2. No pleural effusion. 3. No pneumothorax. Thank you for letting us participate in the care of this patient. If you are a health care provider and have any questions regarding this report, please contact the number below. For patients who have questions please contact the health career specialist that requested your imaging first. Electronically signed by: Chris Candelaria MD, [facility] ([phone]), at 07/29/2024 3:21 PM TTE ( 07/30/24) [...] Compared to the overnight study by the field irrigation worker fellow the impella position is stable. The [...] work to optimize volume status while continuing czydwqb-jqqxfc-ffppetjpry therapies at this time. Obtain comprehensive TTE. [...] P-level 6 at time of transfer to [facility]. CI initially 1.97, improved to 2.2 After impella. Received about 3 L of fluid during procedural course. Patient initially required norepinephrine 30, epinephrine 10, and vasopressin 0.04 for hemodynamic support, which was weaned upon arrival to [facility] to norepinephrine 20and levo 0.04 [...] PCP: Yoel Artis APRN PCP phone number: [phone] Date of Admission: 07/29/2024 ( Hospital Day [...] 0057 07/29/24 1621 PHART 7.44 7.38 7.37 CMW2ZCC 29* 34* 36 PO2ART 109* 141* 71* QLM2JIM 19.4* 19.5* 20.4 VBG (Venous Blood Gas) Recent Labs 07/29/24 1401 PHVEN 7.30* PO2VEN 39 JJA4ULL 20.1* Lactate ( Last 12 hours) 1.3 >> 1.2 Mixed Venous Sat No results for input(s): L7PTWH9 in the last 168 hours. PA Catheter [...] 0057 07/29/24 1621 PHART 7.44 7.38 7.37 UAR6KEZ 29* 34* 36 PO2ART 109* 141* 71* RBH6PTQ 19.4* 19.5* 20.4 VBG (Venous Blood Gas) Recent Labs 07/29/24 1401 PHVEN 7.30* PO2VEN 39 DVJ9RQP 20.1* Mixed Venous Sat No results for input(s): J0MRLM0 in the last 168 hours. Microbiology: Microbiology Results (Last 30 days) Procedure Component Value Units Date/Time Blood culture [[id number]] Collected: 07/29/24 160 Lab Status: In process Specimen: Blood, Venous Updated: 07/29/24 162 Blood culture [[id number]] Collected: 07/29/241607 Lab Status: In process Specimen: Blood, Venous Updated: 07/29/24 161 Imaging: Results for orders placed or performed during the hospital encounter of 07/29/24 XR Chest One View (Exam End: 07/29/2024 2:30 PM) Result Value WORKSTATION ID [id number] Impression 1. No pulmonary edema. 2. No pleural effusion. 3. No pneumothorax. Thank you for letting us participate in the care of this patient. If you are a health care provider and have any questions regarding this report, please contact the number below. For patients who have questions please contact the health career specialist that requested your imaging first. Electronically signed by: Chris Candelaria MD, [facility] ([phone]), at 07/29/2024 3:21 PM Medications Scheduled Meds: [...] interactive Cardiovascular #STEMI LAD, 100% occlusion s/p LWO 07/29 #Cardiogenic shock (EF ~20% during procedural [...] Susannah Ornelas MD Internal Medicine, PGY-1 Cardiology, [facility] 07/30/24 10:41 AM documented in this [...] [facility] for [facility] and [facility] demo nstrated 100% occlusion. No significant [...] 4.57) performed by Brandan Mcgovern MD [facility] ENDOSCOPY Significant Family History: Family History Problem [...] mouth. Past Week nitroGLYcerin (NITROLINGUAL) 400 mcg/spray [place], Non-Aerosol 1 spray to anus for proctalgia [...] 3.5 guiding catheter and a 3.5 Fr [facility] 20 Mhz using Manual pullback. Imaging [...] A premounted 3.00 x 22 mm Jeison [place] (LOW) was deployed with a maximum inflation [...] A premounted 3.00 x 08 mm Jeison [place] (LOW) was deployed with a maximum inflation [...] a limited study performed by a fellow field irrigation worker to evaluate for cardiogenic shock with impella [...] Compared to the overnight study by the field irrigation worker fellow the impella position is stable. The [...] PCP: Yoel Artis APRN PCP phone number: [phone] Date of Admission: 07/29/2024 ( Hospital Day [...] P-level 6 at time of transfer to [facility]. CI initially 1.97, improved to [...] 4.57) performed by Brandan Mcgovern MD [facility] ENDOSCOPY Family History Family History Problem Relation [...] Blood Gas) No results for input(s): PHART, OBH6ZDH, PO2ART, WIO6UBD, LACTATEVEN, MMC8UGV, PFRATIOART2 in the last 168 hours. VBG (Venous Blood Gas) Recent Labs 07/29/24 1401 PHVEN 7.30* PO2VEN 39 BEW8UYG 20.1* Mixed Venous Sat No results for input(s): U2SUTQ2 in the last 168 hours. PA Catheter [...] Blood Gas) No results for input(s): PHART, KET1WMB, PO2ART, LWA7NAG, LACTATEVEN, UJB9QEL, PFRATIOART2 in the last 168 hours. VBG (Venous Blood Gas) Recent Labs 07/29/24 1401 PHVEN 7.30* PO2VEN 39 JCU5QOJ 20.1* Mixed Venous Sat No results for input(s): U7LDIK4 in the last 168 hours. Microbiology: Microbiology [...] [facility] for [facility]. Found to have 100% occlusion of LAD for which he underwent LOW to LAD.Otherwise no other significant vessel disease. Fahad is currently hemodynamically tenuous but improving upon admission to [facility], requiring hemodynamic support with norepinephrine and vasopressin at time of admission along with mechanical support with Impella device. Reassuringly, he demonstrates decreasing pressor requirements since admission to [facility], with epinephrine completely weaned. He [...] Bernardo Amos MD Internal Medicine, PGY-3 Cardiology, [facility] 07/29/24 3:14 PM Cardiology Attending [...] Section of Cardiovascular Medicine [facility] Continuous Absorption Process Operatortextile conservator [facility] This patient meets or has met [...] to the planned procedure. Hand Hygiene: The spiral binder did perform hand hygiene prior to arterial [...] ease. Good wave form. Ivan Hernandez MD Circulation Analyst Associated attestation - Rolando Yhe MD - 07/31/2024 7:05 AM EST I [...] Fahad was quite active prior to his [place]. 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 Given parameters for home exercise. He follows a heart healthy diet and is not overweight. His lipids are wnl. Participation in an outpatient cardiac rehabilitation program at [facility] was discussed. Patient agrees to a referral [...] MEDICARE Payor: AAR MANAGED MEDICARE / Plan: [facility] MANAGED MEDICARE COMPLETE / Product Type: [...] of Discharge: 08/04/2024 Gaby Wong RN, CM [phone] * Initial Assessments - Char Meza OT [...] 4.57) performed by Brandan Mcgovern MD [facility] ENDOSCOPY Social History: Patient lives with his [...] evaluation only Total Minutes, Occupational Therapy: 14 ([phone] (evaluation)) 2017 OT Evaluation Code Rationale: Diagnosis [...] and measurable assessment of functional outcome. Pager: [phone] Char Meza OT 08/03/2024 Occupational Therapy Rehabilitation [...] (Interventions Implemented as Appropriate) Flowsheets (Taken 08/01/2024 6764) Outcome Summary: A+O, no pain. NSR. MAP [...] Procedure Note: Patient Name: Korey Montoya : [id number] MR#: [id number] Case Date: 07/31/2024 Electrical Intern: Surgeons and Role: * Maldonado Luis MD - Primary * Quinten Charles PA - Physician Safe And Vault Service Mechanic Preoperative diagnosis: shock, impella Postoperative diagnosis: * same * Procedure(s) performed: Impella removal form right PIPE FITTER SUPERVISOR Access: Right PIPE FITTER SUPERVISOR A time-out was conducted prior to [...] Admitted From: Transfer from another hospital Location: [facility] Reason for Hospitalization: chest pain Past medical History: Past Medical History: Diagnosis Date ADHD HLD (hyperlipidemia) HTN (hypertension) Tremor Hospitalizations Within the Past 30 Days: no previous admission in last 30 days Current Decision-Making Capacity: Self If AD's have not been completed the following surrogate would be surrogate decision maker per [place] surrogate decision making law. (Only good for 180 days) Any patient receiving care in [place] must abide by [place] law. The hierarchy for surrogate decision making [...] In the past 12 months has the [place], [place], or water [place] threatened to shut off services in your [...] Mailing Address: [address] [place] [address] Physical Address: [address] [place], [place] Social & Family Supports: All names [...] points: Addiction likely Health/Prescription Coverage: Primary Insurance: [facility] [employer] MEDICARE Payor: [facility] MEDICARE / Plan: AARP RPPO MANAGED MEDICARE COMPLETE / Product Type: *No Product type* / Secondary Insurance: N/A ; Prescription Coverage: Yes Preferred Pharmacy: [address] [address] [place] Status: Patient is a : No Primary Care Provider confirmed: Alexia Mtz, CERTIFIED SOCIAL WORKERS IN HEALTH CARE [phone] Patient/Caregiver Goals of Treatment: return home Potential [...] 6:25 PM EST Pt arrived from track 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 CXR and EKG completed. [...] Procedure Note: Patient Name: Korey Montoya : [id number] MR#: [id number] Case Date: 07/29/2024 Electrical Intern: Surgeons and Role: * Vahe Marvin MD - Primary * Susannah Watts PA - Physician Safe And Vault Service Mechanic Preoperative diagnosis: STEMI Postoperative diagnosis: * STEMI, LAD Artery * * Cardiogenic Shock * Procedure(s) performed: [facility] Coronary angiogram Stent insertion coronary IVUS coronary Venous line insert RH [place] Colette Catheter Vascular closure device Ventricular assist [...] x 22 mm to 14 deonna JEISON [place] with LIZ 3 flow. Residual distal disease at distal stent, overlapping distal stent was inserted with 3.0 x 8 mm JEISON [place]. Systolic's in the 80's sustained. Patient re [...] 9:30 AM EST Appointment Non-[place] [address] Mushtaq Murphy APRN 10/31/2024 11:00 AM EST Office Visit Cardiology at [address] [address] Mushtaq Murphy, FREDRICK Scheduled Orders [...] 0.40 x10(3)/mc L 08/04/2024 6:39 AM EST [facility] Basophil % 0.4 % 08/04/2024 6:39 AM [facility] Baso Absolute <0.04 0.00 - 0.10 x10(3)/mc L 08/04/2024 6:39 AM [facility] Immature Gran % 0.3 % 6:39 AM THE [facility] Immature Gran Absolute <0.04 0.00 - 0.04 x10(3)/mc L 08/04/2024 6:39 AM [facility] Blood VENOUS BLOOD SPECIMEN / Unknown Venipuncture / Unknown 08/04/2024 6:08 AM EST 08/04/2024 6:19 AM EST Bridgette Stauffer MD HEMATOLOGY ORDERABLE S [facility] [place] [address] * Magnesium (08/04/2024 6:08 AM EST) Pathologist [facility] Magnesium 0.85 0.69 - 1.07 mMol/L 08/04/2024 7:07 AM [facility] Blood VENOUS BLOOD SPECIMEN / Unknown Venipuncture / Unknown 08/04/2024 6:08 AM EST 08/04/2024 6:19 AM EST Bridgette Stauffer MD CHEMISTRY ORDERABLES [facility] [place] [address] * Basic Metabolic Panel (08/04/2024 6:08 AM [...] 22 - 31 mMol/L 08/04/2024 7:07 AM [facility] Anion Gap 8 5 - 15 mMol/L 08/04/2024 7:07 AM [facility] Calcium 8.5 8.5 - 10.5 mg/dL 08/04/2024 7:07 AM [facility] Est Glomerular Filtration Rate - Male 74 mL/min/1. 73 m?? 08/04/2024 7:07 AM [facility] [...] MD CHEMISTRY ORDERABLES [facility] [place] [id number] * (ABNORMAL) CBC (with Diff) (08/03/2024 5:16 AM EST) White Blood Cell 7.85 4.00 - 9.50 x10(3)/mc L 08/03/2024 5:29 AM [facility] Red Blood Cell 4.43(L) 4.58 - 5.54 x10(6)/mc L 08/03/2024 5:29 AM [facility] Hemoglobin 11.8(L) 13.7 - 16.5 g/dL 08/03/2024 5:29 AM [facility] Hematocrit 35.9(L) 40.5 - 48.5 [...] HEMATOLOGY ORDERABLE S [facility] [place] [address] * Magnesium (08/03/2024 5:16 AM EST) Pathologist [facility] Magnesium 0.89 0.69 - 1.07 mMol/L 08/03/2024 5:56 AM [facility] Blood VENOUS BLOOD SPECIMEN / Unknown Venipuncture / Unknown 08/03/2024 5:16 AM EST 08/03/2024 5:23 AM EST Bridgette Stauffer MD CHEMISTRY ORDERABLES [facility] [place] [address] * (ABNORMAL) Basic Metabolic Panel (08/03/2024 5:16 AM EST) Pathologist [facility] Glucose 98 65 - 199 mg/dL [...] mL/min/1. 73 m?? 08/03/2024 5:56 AM EST [facility] Comment: [...] MD CHEMISTRY ORDERABLES Performing Organization Address [facility]/ZIP Co de Phone Number [facility] [place] [address] * POC, GLUCOSE (08/02/2024 7:47 AM EST) Glucometer, POC 89 65 - 199 mg/dL 08/02/2024 7:47 AM EST [facility] Comment:Supplemental ranges: <140 mg/dL before meals <180 mg/dL all other times of the day. Blood CAPILLARY BLOOD / Unknown 08/02/2024 7:47 AM EST 08/02/2024 7:47 AM EST Krystal Parker MD POINT OF CARE TEST O RDERABLES [facility] [place] [address] * (ABNORMAL) CBC (with Diff) (08/02/2024 4:20 [...] - 0.40 x10(3)/mc L 08/02/2024 4:50 AM [facility] Basophil % 0.4 % 08/02/2024 [...] HEMATOLOGY ORDERABLE S [facility] [place] [address] * Magnesium (08/02/2024 4:20 AM EST) Magnesium 0.79 0.69 - 1.07 mMol/L 08/02/2024 5:06 AM [facility] Blood VENOUS BLOOD SPECIMEN / Unknown Venipuncture / Unknown 08/02/2024 4:20 AM EST 08/02/2024 4:37 AM EST Bridgette Stauffer MD CHEMISTRY ORDERABLES [facility] [place] [address] * (ABNORMAL) Basic Metabolic Panel (08/02/2024 4:20 [...] MD CHEMISTRY ORDERABLES Performing Organization Address [facility]/ZIP Co de Phone Number [facility] [place] [address] * Potassium (08/01/2024 8:39 PM EST) [facility] Potassium 4.0 3.5 - 5.0 mMol/L 08/01/2024 9:21 PM EST [facility] Blood VENOUS BLOOD SPECIMEN / Unknown Venipuncture / Unknown 08/01/2024 8:39 PM EST 08/01/2024 8:51 PM EST Aubree Silverio MD CHEMISTRY ORDERABL ES Performing Organization Address [facility] Co de Phone Number [facility] [place] [address] * POC, GLUCOSE (08/01/2024 8:35 PM EST) Glucometer, POC 112 65 - 199 mg/dL 08/01/2024 8:36 PM EST [facility] Comment:Supplemental ranges: <140 mg/dL before meals <180 mg/dL all other times of the day. Blood CAPILLARY BLOOD / Unknown 08/01/2024 8:35 PM EST 08/01/2024 8:36 PM EST Krystal Parker MD POINT OF CARE TEST O RDERABLES Performing Organization Address [facility] Co de Phone Number [facility] [place] [address] * POC, GLUCOSE (08/01/2024 4:55 PM EST) Glucometer, POC 99 65 - 199 mg/dL 08/01/2024 4:56 PM EST [facility] Comment:Supplemental ranges: <140 mg/dL before meals <180 mg/dL all other times of the day. Blood CAPILLARY BLOOD / Unknown 08/01/2024 4:55 PM EST 08/01/2024 4:56 PM EST Krystal Parker MD POINT OF CARE TEST O JOSH Performing Organization Address City/[facility] Co de Phone Number [facility] [place] [address] * POC, GLUCOSE (08/01/2024 12:42 PM EST) Glucometer, POC 130 65 - 199 mg/dL 08/01/2024 12:43 PM EST [facility] Comment:Supplemental ranges: <140 mg/dL before meals <180 mg/dL all other times of the day. Blood CAPILLARY BLOOD / Unknown 08/01/2024 12:42 PM EST 08/01/2024 12:43 PM EST Krystal Parker MD POINT OF CARE TEST O JOSH Performing Organization Address [facility] Co de Phone Number [facility] [place] [address] * (ABNORMAL) Cooximetry, POC (08/01/2024 10:45 AM [...] TEST O JOSH Performing Organization Address [facility] Co de Phone Number [facility] [place] [address] * Potassium (08/01/2024 8:20 AM EST) Pathologist [facility] Potassium 4.0 3.5 - 5.0 mMol/L 08/01/2024 10:17 AM EST [facility] Blood ARTERIAL BLOOD / Unknown Venipuncture / Unknown 08/01/2024 8:20 AM EST 08/01/2024 8:30 AM EST Aubree Silverio MD CHEMISTRY ORDERABL ES Performing Organization Address [facility] de Phone Number [facility] [place] [address] * POC, GLUCOSE (08/01/2024 7:44 AM EST) Glucometer, POC 86 65 - 199 mg/dL 08/01/2024 7:44 AM EST [facility] Comment:Supplemental ranges: <140 mg/dL before meals <180 mg/dL all other times of the day. Blood CAPILLARY BLOOD / Unknown 08/01/2024 7:44 AM EST 08/01/2024 7:44 AM EST Krystal Parker MD POINT OF CARE TEST O RDERASHAY Performing Organization Address [facility] Co de Phone Number [facility] [place] [address] * (ABNORMAL) CBC (with Diff) (08/01/2024 4:18 AM EST) White Blood Cell 8.51 4.00 - 9.50 x10(3)/mc L 08/01/2024 4:53 AM [facility] Red Blood Cell 4.12(L) 4.58 - 5.54 x10(6)/mc L 08/01/2024 4:53 AM [facility] Hemoglobin 11.2(L) 13.7 - 16.5 g/dL 08/01/2024 4:53 AM [facility] Hematocrit 33.8(L) 40.5 - 48.5 [...] HEMATOLOGY ORDERABLE S [facility] [place] [address] * Magnesium (08/01/2024 4:18 AM EST) Magnesium 0.74 0.69 - 1.07 mMol/L 08/01/2024 5:00 AM [facility] Blood VENOUS BLOOD SPECIMEN / Unknown Venipuncture / Unknown 08/01/2024 4:18 AM EST 08/01/2024 4:29 AM EST Bridgette Stauffer MD CHEMISTRY ORDERABLES [facility] [place] [address] * (ABNORMAL) Basic Metabolic Panel (08/01/2024 4:18 [...] MD CHEMISTRY ORDERABLES Performing Organization Address [facility] Co de Phone Number [facility] [place] [address] * POC, GLUCOSE (07/31/2024 8:41 PM EST) [...] TEST O RDERABLES Performing Organization Address [facility] Co de Phone Number [facility] [place] [address] * CARDIAC CATHETERIZATION (07/31/2024 5:53 PM EST) Anatomical Region Laterality Modality Other Narrative 08/01/2024 12:37 PM EST ?[facility] ? Cardiac Catheterization/Intervention Report ? Patient Name: Korey Montoya. ? Procedure Date: 07/31/2024 ? A #: [id number] ? Primary Physician: Janelle, Maldonado T ? Case #: [id number] ? File Name: [id number] ? Catheterization Order Number: [id number] ? [facility] ? Final Report [place], [place] ? Patient Name: ? Korey P. Montoya ?ID#: ?[id number] ? : ?1950 ? Procedure Date: ? [...] ? Comments: ?Impella removed from the right PIPE FITTER SUPERVISOR with deployment of Perclose and ?Angioseal. [...] Procedure Note Maldonado Luis MD - 08/01/2024 [facility] Cardiac Catheterization/Intervention Report Patient Name: Korey Montoya Procedure Date: 07/31/2024 A #: [id number] Primary Physician: Maldonado Luis Case #: [id number] File Name: [id number] Catheterization Order Number: [id number] [facility] FinalReport [place], [place] Patient Name: Korey Montoya ID#:[id number] :1950 Procedure Date: July 31, 2024 Case [...] was designated as ASA Class IV. The [facility] clinical frailtyscale is 4: Vulnerable. Diagnostic [...] procedures. Comments: Impella removed from the right PIPE FITTER SUPERVISOR with deployment of Perclose and Angioseal. [...] * POC, GLUCOSE (07/31/2024 11:04 AM EST) [facility] Glucometer, POC 82 65 - 199 mg/dL 07/31/2024 11:04 AM EST [facility] Comment:Supplemental ranges: <140 mg/dL before meals <180 mg/dL all other times of the day. Blood CAPILLARY BLOOD / Unknown 07/31/2024 11:04 AM EST 07/31/2024 11:04 AM EST Krystal Parker MD POINT OF CARE TEST O RDERABLES [facility] [place] [address] * (ABNORMAL) Blood Gas, Arterial POC (07/31/2024 [...] - 199 mg/dL 07/31/2024 8:30 AM EST [facility] Comment:Glucose Concentratio n >=200 mg/dL plus symptoms is consistent with Diabetes Mellitus. Blood ARTERIAL BLOOD / Unknown 07/31/2024 8:29 AM EST 07/31/2024 8:30 AM EST Krystal Parker MD POINT OF CARE TEST O JOSH Performing Organization Address City/[facility] Co de Phone Number [facility] [place] [address] * POC, GLUCOSE (07/31/2024 7:47 AM EST) [facility] Signature Glucometer, POC 82 65 - 199 mg/dL 07/31/2024 7:53 AM EST [facility] Comment:Supplemental ranges: <140 mg/dL before meals <180 mg/dL all other times of the day. Blood CAPILLARY BLOOD / Unknown 07/31/2024 7:47 AM EST 07/31/2024 7:53 AM EST Krystal Parker MD POINT OF CARE TEST O JOSH Performing Organization Address [facility] Co de Phone Number [facility] [place] [address] * (ABNORMAL) CBC (with Diff) (07/31/2024 1:08 AM EST) White Blood Cell 10.25(H) 4.00 - 9.50 x10(3)/mc L 07/31/2024 1:28 AM EST [facility] Red Blood Cell 4.13(L) 4.58 - 5.54 x10(6)/mc L 07/31/2024 1:28 AM EST [facility] Hemoglobin 11.2(L) 13.7 - 16.5 g/dL 07/31/2024 1:28 AM EST [facility] Hematocrit 33.9(L) 40.5 - [...] 0.90 x10(3)/mc L 07/31/2024 1:28 AM EST [facility] Eos % 0.1 % [...] Immature Gran % 0.2 % 1:28 AM [facility] Immature Gran Absolute <0.04 0.00 - 0.04 x10(3)/mc L 07/31/2024 1:28 AM [facility] Blood VENOUS BLOOD SPECIMEN / Unknown Venipuncture / Unknown 07/31/2024 1:08 AM EST 07/31/2024 1:18 AM EST Bridgette Stauffer MD HEMATOLOGY ORDERABLE S [facility] [place] [address] * Magnesium (07/31/2024 1:08 AM EST) Magnesium 0.89 0.69 - 1.07 mMol/L 07/31/2024 1:46 AM EST [facility] Blood VENOUS BLOOD SPECIMEN / Unknown Venipuncture / Unknown 07/31/2024 1:08 AM EST 07/31/2024 1:18 AM EST Bridgette Stauffer MD CHEMISTRY ORDERABLES [facility] [place] [address] * (ABNORMAL) Basic Metabolic Panel (07/31/2024 1:08 [...] 3.5 - 5.0 mMol/L 07/31/2024 1:46 AM [facility] Chloride 110(H) 98 - 107 mMol/L 07/31/2024 1:46 AM [facility] Carbon Dioxide 24 22 - [...] MD CHEMISTRY ORDERABLES Performing Organization Address [facility] Co de Phone Number [facility] [place] [address] * (ABNORMAL) Hepatic Function Panel (07/31/2024 1:08 AM EST) Albumin 3.1(L) 3.2 - 5.2 g/dL 07/31/2024 1:46 AM [facility] Aspartate Aminotransferase 192(H) <=39 unit/L 07/31/2024 1:46 AM [facility] Alanine Aminotransferase 59(H) 0 - 55 unit/L 07/31/2024 1:46 AM [facility] Alkaline Phosphatase 46 40 - [...] CHEMISTRY ORDERABLES Performing Organization Address City/[facility]/ZIP Co de Phone Number [facility] [place] [address] * POC, GLUCOSE (07/30/2024 8:03 PM EST) Glucometer, POC 86 65 - 199 mg/dL 07/30/2024 8:03 PM [facility] Comment:Supplemental ranges: <140 mg/dL before meals <180 mg/dL all other times of the day. Blood CAPILLARY BLOOD / Unknown 07/30/2024 8:03 PM EST 07/30/2024 8:03 PM EST Krystal Parker MD POINT OF CARE TEST O RDERABLES Performing Organization Address City/[facility]/ZIP Co de Phone Number [facility] [place] [address] * Potassium (07/30/2024 8:03 PM EST) Potassium 3.8 3.5 - 5.0 mMol/L 07/30/2024 9:13 PM EST [facility] Blood VENOUS BLOOD SPECIMEN / Unknown Venipuncture / Unknown 07/30/2024 8:03 PM EST 07/30/2024 8:22 PM EST Aubree Silverio MD CHEMISTRY ORDERABL ES Performing Organization Address [facility] Co de Phone Number [facility] [place] [address] * POC, GLUCOSE (07/30/2024 6:23 PM EST) Glucometer, POC 93 65 - 199 mg/dL 07/30/2024 6:24 PM EST [facility] Comment:Supplemental ranges: <140 mg/dL before meals <180 mg/dL all other times of the day. Blood CAPILLARY BLOOD / Unknown 07/30/2024 6:23 PM EST 07/30/2024 6:24 PM EST Krystal Parker MD POINT OF CARE TEST O RDERABLES Performing Organization Address City/[facility]/ZIP Co de Phone Number [facility] [place] [address] * POC, GLUCOSE (07/30/2024 5:08 PM EST) Glucometer, POC 78 65 - 199 mg/dL 07/30/2024 5:08 PM EST [facility] Comment:Supplemental ranges: <140 mg/dL before meals <180 mg/dL all other times of the day. Blood CAPILLARY BLOOD / Unknown 07/30/2024 5:08 PM EST 07/30/2024 5:08 PM EST Krystal Parker MD POINT OF CARE TEST O RDERABLES Performing Organization Address [facility] Co de Phone Number [facility] [place] [address] * (ABNORMAL) Phosphorus (07/30/2024 3:08 PM EST) Phosphorus 2.1(L) 2.5 - 4.5 mg/dL 07/30/2024 3:58 PM EST [facility] Blood VENOUS BLOOD SPECIMEN / Unknown Venipuncture / Unknown 07/30/2024 3:08 PM EST 07/30/2024 3:12 PM EST Aubree Silverio MD CHEMISTRY ORDERABL ES Performing Organization Address [facility] Co de Phone Number [facility] [place] [address] * Magnesium (07/30/2024 3:08 PM EST) Magnesium 0.90 0.69 - 1.07 mMol/L 07/30/2024 3:58 PM EST [facility] Blood VENOUS BLOOD SPECIMEN / Unknown Venipuncture / Unknown 07/30/2024 3:08 PM EST 07/30/2024 3:12 PM EST Aubree Silverio MD CHEMISTRY ORDERABL ES Performing Organization Address [facility] Co de Phone Number [facility] [place] [address] * (ABNORMAL) Basic Metabolic Panel (07/30/2024 3:08 [...] - 5.0 mMol/L 07/30/2024 4:17 PM EST [facility] Chloride 109(H) 98 - 107 mMol/L 07/30/2024 4:17 PM [facility] Carbon Dioxide 21(L) 22 - 31 mMol/L 07/30/2024 4:17 PM [facility] Anion Gap 11 5 - 15 mMol/L 07/30/2024 4:17 PM [facility] Calcium 7.9(L) 8.5 - 10.5 mg/dL 07/30/2024 4:17 PM EST [facility] Est Glomerular Filtration Rate - Male 79 mL/min/1. 73 m?? 07/30/2024 4:17 PM [facility] [...] EST Aubree Silverio MD CHEMISTRY ORDERABL ES [facility] [place] [address] * ECHO LMTD W CONTRAST W LMTD SPEC DOPP COLOR DOPP (07/30/2024 11:42 AM EST) Anatomical Region Laterality Modality Cardiac Other 07/30/2024 10:2 2 AM EST Narrative 07/30/2024 12:34 PM EST [address] [place] [id number] ? Echocardiogram Report Name: KOREY MONTOYA ? Study Date: 07/30/2024 10:22 AMBP: 124/66 mmHg : 1950 ? Height: 168 cm ? Account: [id number] Age: 74 yrs ? Weight: 65 kg [...] Compared to the overnight study by the field irrigation worker fellow the impella position is stable. 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 Procedure Limited - 26629. Image enhancement Definity was used for both [...] Note Kathleen Banda MD - 07/30/2024 [address] [place] [address] Echocardiogram Report Name: KOREY MONTOYA Study Date: 410:22 AMBP: 124/66 mmHg : 1950 Height: 168 cm Account: [id number] Age: 74 yrs Weight: 65 kg Gender: [...] Compared to the overnight study by the field irrigation worker fellow the impella positionis stable. The global left ventricular systolic function has improvedpredominantly via recruitment outside the LAD territory which remains akinetic. Procedure Limited - 35917. Image enhancement Definity was used for both [...] POC, GLUCOSE (07/30/2024 11:17 AM EST) Pathologist [facility] Glucometer, POC 97 65 - 199 mg/dL 07/30/2024 11:17 AM EST [facility] Comment:Supplemental ranges: <140 mg/dL before meals <180 mg/dL all other times of the day. Blood CAPILLARY BLOOD / Unknown 07/30/2024 11:17 AM EST 07/30/2024 11:17 AM EST Aubree Silverio MD POINT OF CARE TEST ORDERABLES [facility] [place] [address] * (ABNORMAL) Blood Gas, Arterial POC (07/30/2024 [...] - 1.33 mmol/L 07/30/2024 8:17 AM EST [facility] Blood ARTERIAL BLOOD / Unknown 07/30/2024 8:16 AM EST 07/30/2024 8:17 AM EST Aubree Silverio MD POINT OF CARE TEST ORDERABLES [facility] [place] [address] * (ABNORMAL) Troponin - Single (07/30/2024 8:09 [...] found in the [facility] Laboratory Test Catalog Troponin - [email or web address] Reference: Fourth [place] Definition of Myocardial Infarction. Journal of the [place] [employer] 2018;72:6089-5649 Blood VENOUS BLOOD SPECIMEN / Unknown Venipuncture / Unknown 07/30/2024 8:09 AM EST 07/30/2024 8:26 AM EST Aubree Silverio MD CHEMISTRY ORDERABL ES Performing Organization Address City/[facility]/ZIP Co de Phone Number [facility] [place] [address] * POC, GLUCOSE (07/30/2024 7:40 AM EST) [facility] Glucometer, POC 111 65 - 199 mg/dL 07/30/2024 7:40 AM EST [facility] Comment:Supplemental ranges: <140 mg/dL before meals <180 mg/dL all other times of the day. Blood CAPILLARY BLOOD / Unknown 07/30/2024 7:40 AM EST 07/30/2024 7:40 AM EST Aurbee Silverio MD POINT OF CARE TEST ORDERABLES Performing Organization Address [facility] Co de Phone Number [facility] [place] [address] * (ABNORMAL) CBC (with Diff) (07/30/2024 2:11 AM EST) [facility] White Blood Cell 11.25(H) 4.00 - 9.50 [...] % 0.2 % 07/30/2024 2:33 AM EST [facility] Baso Absolute <0.04 0.00 - 0.10 x10(3)/mc L 07/30/2024 2:33 AM EST [facility] Immature Gran % 0.4 % 2:33 AM EST [facility] Immature Gran Absolute 0.05(H) 0.00 - 0.04 x10(3)/mc L 07/30/2024 2:33 AM EST [facility] Blood VENOUS BLOOD SPECIMEN / Unknown Venipuncture / Unknown 07/30/2024 2:11 AM EST 07/30/2024 2:22 AM EST Bridgette Stauffer MD HEMATOLOGY ORDERABLE S [facility] [place] [address] * Magnesium (07/30/2024 2:11 AM EST) Pathologist [facility] Magnesium 1.01 0.69 - 1.07 mMol/L 07/30/2024 2:51 AM EST [facility] Blood VENOUS BLOOD SPECIMEN / Unknown Venipuncture / Unknown 07/30/2024 2:11 AM EST 07/30/2024 2:22 AM EST Bridgette Stauffer MD CHEMISTRY ORDERABLES [facility] [place] [address] * (ABNORMAL) Basic Metabolic Panel (07/30/2024 2:11 AM EST) Glucose 190 65 - 199 mg/dL 07/30/2024 2:51 AM EST [facility] Comment:Glucose Concentratio n >=200 mg/dL plus symptoms is consistent with Diabetes Mellitus. Blood Urea Nitrogen 15 10 - 20 mg/dL 07/30/2024 2:51 AM EST [facility] Creatinine 0.88 0.80 - 1.50 mg/dL 07/30/2024 2:51 AM EST [facility] Sodium 135 135 - 145 mMol/L 07/30/2024 2:51 AM EST [facility] Potassium 4.9 3.5 - 5.0 mMol/L 07/30/2024 2:51 AM [facility] Chloride 105 98 - 107 mMol/L 07/30/2024 2:51 AM [facility] Carbon Dioxide 19(L) 22 - 31 mMol/L 07/30/2024 2:51 AM EST [facility] Anion Gap 11 5 - 15 mMol/L 07/30/2024 2:51 AM [facility] Calcium 7.7(L) 8.5 - 10.5 mg/dL 07/30/2024 2:51 AM [facility] Est Glomerular Filtration Rate - Male 91 mL/min/1. 73 m?? 07/30/2024 2:51 AM [facility] [...] MD CHEMISTRY ORDERABLES [facility] [place] [address] * (ABNORMAL) Cooximetry, POC (07/30/2024 1:00 AM EST) pO2, Coox 28 mmHg 07/30/2024 1:03 AM [facility] Hemoglobin, Coox 12.7(L) 13.7 - 16.5 g/dL 07/30/2024 1:03 AM [facility] Oxyhemoglobin, Coox 54.9 % 07/30/2024 [...] OF CARE TEST ORDERABLES Performing Organization Address City/State/[facility] Co de Phone Number [facility] [place] [address] * (ABNORMAL) Blood Gas, Arterial POC (07/30/2024 [...] CARE TEST ORDERABLES [facility] [place] [address] * (ABNORMAL) Troponin - Single (07/29/2024 10:31 [...] found in the [facility] Laboratory Test Catalog Troponin - [email or web address] Reference: Fourth [place] Definition of Myocardial Infarction. Journal of the [place] [employer] 2018;72:8221-8256 Blood VENOUS BLOOD SPECIMEN / Unknown Venipuncture / Unknown 07/29/2024 10:31 PM EST 07/29/2024 10:36 PM EST Yrn Ward MD CHEMISTRY ORDERABL ES [facility] [place] [address] * Potassium (07/29/2024 8:11 PM EST) Pathologist [facility] Potassium 4.1 3.5 - 5.0 mMol/L 07/29/2024 8:52 PM EST [facility] Blood VENOUS BLOOD SPECIMEN / Unknown Venipuncture / Unknown 07/29/2024 8:11 PM EST 07/29/2024 8:16 PM EST Aubree Silverio MD CHEMISTRY ORDERABL ES Performing Organization Address [facility]/ZIP Co de Phone Number [facility] [place] [address] * (ABNORMAL) Troponin - Single (07/29/2024 8:11 [...] found in the [facility] Laboratory Test Catalog Troponin - https://[email or web address].org/catalogs/565/files/47258 Reference: Fourth [place] Definition of Myocardial Infarction. Journal of the [place] [employer] 2018;72:3534-8238 Blood VENOUS BLOOD SPECIMEN / Unknown Venipuncture / Unknown 07/29/2024 8:11 PM EST 07/29/2024 8:16 PM EST Aubree Silverio MD CHEMISTRY ORDERABL ES [facility] [place] [address] * (ABNORMAL) Phosphorus (07/29/2024 8:11 PM EST) Phosphorus 2.1(L) 2.5 - 4.5 mg/dL 07/29/2024 8:52 PM EST [facility] Blood VENOUS BLOOD SPECIMEN / Unknown Venipuncture / Unknown 07/29/2024 8:11 PM EST 07/29/2024 8:16 PM EST Aubree Silverio MD CHEMISTRY ORDERABL ES Performing Organization Address [facility] Co de Phone Number [facility] [place] [address] * POC, GLUCOSE (07/29/2024 8:09 PM EST) [facility] Signature Glucometer, POC 142 65 - 199 mg/dL 07/29/2024 8:09 PM EST [facility] Comment:Supplemental ranges: <140 mg/dL before meals <180 mg/dL all other times of the day. Blood CAPILLARY BLOOD / Unknown 07/29/2024 8:09 PM EST 07/29/2024 8:09 PM EST Aubree Silverio MD POINT OF CARE TEST ORDERABLES Performing Organization Address [facility] Co de Phone Number [facility] [place] [address] * ABORH RECHECK (07/29/2024 6:43 PM EST) ABORH Recheck AB POSITIVE 07/29/2024 10:13 PM EST [facility] Blood VENOUS BLOOD SPECIMEN / Unknown Venipuncture / Unknown 07/29/2024 6:43 PM EST 07/29/2024 7:15 PM EST Aubree Silverio MD BLOOD BANK LAB ORD ERABLES Performing Organization Address City/[facility]/ZIP Co de Phone Number [facility] [place] [address] * POC, GLUCOSE (07/29/2024 5:57 PM EST) [facility] Glucometer, POC 166 65 - 199 mg/dL 07/29/2024 5:57 PM EST [facility] Comment:Supplemental ranges: <140 mg/dL before meals <180 mg/dL all other times of the day. Blood CAPILLARY BLOOD / Unknown 07/29/2024 5:57 PM EST 07/29/2024 5:57 PM EST Aubree Silverio MD POINT OF CARE TEST ORDERABLES [facility] [place] [address] * Type and screen ([facility]/CGP/MAGALIE) (07/29/2024 5:56 PM EST) [facility] ABORH Type AB POSITIVE 07/29/2024 9:44 PM EST [facility] PATIENT HISTORY Not Found 07/29/2024 9:44 PM EST [facility] Expires at [id number] on: 08/01/2024 07/29/2024 9:44 PM EST [facility] ANTIBODY SCREEN AUTOMATED Negative 07/29/2024 9:44 PM EST [facility] T&S only valid at [facility] 07/29/2024 9:44 PM EST [facility] Blood VENOUS BLOOD SPECIMEN / Unknown Venipuncture / Unknown 07/29/2024 5:56 PM EST 07/29/2024 6:07 PM EST Narrative [facility] - 07/29/2024 9:44 PM EST This Type and Screen result is only valid at the [facility] Aubree Silverio MD BLOOD BANK LAB ORD ERABLES [facility] [place] [address] * (ABNORMAL) Troponin - Single (07/29/2024 4:52 PM EST) [facility] Troponin-T, High Sensitivity >10,000(H ) <=22 [...] found in the [facility] Test Catalog Troponin - https://[email or web address].[email or web address]/catalogs/565/files/48219 Reference: Fourth [place] Definition of Myocardial Infarction. Journal of the [place] [employer] 2018;72:1821-7133 Blood VENOUS BLOOD SPECIMEN / Unknown Venipuncture / Unknown 07/29/2024 4:52 PM EST 07/29/2024 4:57 PM EST Aubree Silverio MD CHEMISTRY ORDERABL ES [facility] [place] [address] * EKG 12 Lead (07/29/2024 4:21 PM EST) Ventricular rate 72 BPM MUSE SYSTEM Atrial Rate 72 BPM MUSE SYSTEM P-R Interval 168 ms MUSE SYSTEM QRS Duration 82 ms MUSE SYSTEM Q-T Interval 392 ms MUSE SYSTEM QTC Calculated (Bezet) 429 ms MUSE SYSTEM Calculated P [place] 71 degrees MUSE SYSTEM Calculated R [place] 77 degrees MUSE SYSTEM Calculated T [place] 28 degrees MUSE SYSTEM INTERPRETATION Sinus rhythm [...] CARE TEST ORDERABLES [facility] [place] [address] * POC, GLUCOSE (07/29/2024 4:19 PM EST) Glucometer, POC 185 65 - 199 mg/dL 07/29/2024 4:19 PM [facility] Comment:Supplemental ranges: <140 mg/dL before meals <180 mg/dL all other times of the day. Blood CAPILLARY BLOOD / Unknown 07/29/2024 4:19 PM EST 07/29/2024 4:19 PM EST Aubree Silverio MD POINT OF CARE TEST ORDERABLES Performing Organization Address [facility] Co de Phone Number [facility] [place] [address] * Blood culture (07/29/2024 4:08 PM EST) Blood Culture No growth at 120 hours 08/03/2024 5:01 PM EST [facility] Blood VENOUS BLOOD SPECIMEN / Unknown Venipuncture / Unknown 07/29/2024 4:08 PM EST 07/29/2024 4:15 PM EST Aubree Silverio MD MICROBIOLOGY - BLO OD ORDERABLES Performing Organization Address [facility] [place] [address] * Blood culture (07/29/2024 4:08 PM EST) Blood Culture No growth at 120 hours 08/03/2024 5:01 PM EST [facility] Blood VENOUS BLOOD SPECIMEN / Unknown Venipuncture / Unknown 07/29/2024 4:08 PM EST 07/29/2024 4:26 PM EST Aubree Silverio MD MICROBIOLOGY - BLO OD ORDERABLES Performing Organization Address [facility] Co de Phone Number [facility] [place] [address] * XR Chest One View (07/29/2024 2:30 PM EST) WORKSTATION ID [id number] RAD Anatomical Region Laterality Modality Chest N/A [...] have questions please contact the health career specialist that requested your imaging first. ? Electronically signed by: Chris Candelaria MD, [facility] ([phone]), at 07/29/2024 3:21 PM Narrative 07/29/2024 3:21 [...] who have questions please contactthe health career specialist that requested your imaging first. Electronically signed by: Chris Candelaria MD, [facility]([phone]), at 07/29/2024 3:21 PM Vahe Marvin MD IMG DX ORDERABLES * (ABNORMAL) APTT (07/29/2024 2:03 PM EST) Partial Thromboplastin Time >160([facility]) 25 - 37 sec 07/29/2024 2:56 PM EST [facility] Blood VENOUS BLOOD SPECIMEN / Unknown Venipuncture / Unknown 07/29/2024 2:03 PM EST 07/29/2024 2:13 PM EST Vahe Marvin MD HEMATOLOGY ORDERABLE S Performing Organization Address [facility] Co de Phone Number [facility] [place] [address] * (ABNORMAL) Prothrombin Time (07/29/2024 2:03 PM [...] HEMATOLOGY ORDERABLE S Performing Organization Address [facility] Co de Phone Number [facility] [place] [address] * CRP, acute inflammation (07/29/2024 2:03 PM EST) C-Reactive Protein <3.0 <=4.9 mg/L 07/29/2024 2:52 PM [facility] Blood VENOUS BLOOD SPECIMEN / Unknown Venipuncture / Unknown 07/29/2024 2:03 PM EST 07/29/2024 2:14 PM EST Vahe Marvin MD CHEMISTRY ORDERABLES [facility] [place] [address] * Lipid Panel (Reflex Direct LDL) (07/29/2024 [...] EST 07/29/2024 2:14 PM EST [facility] - 07/29/2024 2:52 PM EST It [...] ACC/AHA Guidelines (most recently Rolf et al. [facility] 06/15/22): * For individuals with atherosclerotic [...] CHEMISTRY ORDERABLES Performing Organization Address City/[facility]/ZIP Co de Phone Number [facility] [place] [address] * TSH [place] (07/29/2024 2:03 PM EST) Thyroid Stimulating Hormone 0.70 0.27 - 4.20 mcIU/mL 07/29/2024 2:52 PM EST [facility] Blood VENOUS BLOOD SPECIMEN / Unknown Venipuncture / Unknown 07/29/2024 2:03 PM EST 07/29/2024 2:14 PM EST Vahe Marvin MD CHEMISTRY ORDERABLES Performing Organization Address City/[facility]/ZIP Co de Phone Number [facility] [place] [address] * Hemoglobin A1c (07/29/2024 2:03 PM EST) [...] red blood cell turnover may not be labor relations representative of glycemic control. Reference Interval: 4.3 [...] EST 07/29/2024 2:14 PM EST [facility] - 07/29/2024 2:41 PM EST Estimated average glucose (eAG) is calculated from the equation described in: Quinten ALVES, Rikki J, [place] R, et al. ??Translating the A1C assay into estimated average glucose values. ??Diabetes Care 2008:31(8):8160-2573. Additional resources are available on the ADA website (diabetes.org). Vahe Marvin MD CHEMISTRY ORDERABLES [facility] [place] [address] * (ABNORMAL) CBC (with Diff) (07/29/2024 2:03 PM EST) White Blood Cell 19.50(H) 4.00 - 9.50 x10(3)/mc L 07/29/2024 2:18 PM EST [facility] Red Blood Cell 4.81 4.58 - 5.54 x10(6)/mc L 07/29/2024 2:18 PM EST [facility] Hemoglobin 13.1(L) 13.7 - 16.5 g/dL 07/29/2024 2:18 PM [facility] Hematocrit 40.1(L) 40.5 - 48.5 % 07/29/2024 2:18 PM EST [facility] Mean Cell Volume 83.4 82.9 - 93.1 fL 07/29/2024 2:18 PM [facility] Mean Cell Hemoglobin 27.2(L) 27.5 - 32.1 pg 07/29/2024 2:18 PM [facility] Mean Cell Hemoglobin Concentration 32.7 32.0 - 35.7 g/dL 07/29/2024 2:18 PM [facility] Platelet 236 145 - 357 x10(3)/mc L 07/29/2024 2:18 PM [facility] Mean Platelet Volume 10.6 7.6 - 12.9 fL 07/29/2024 2:18 PM [facility] RDW Standard Deviation 43.7 36.0 [...] 0.10 x10(3)/mc L 07/29/2024 2:18 PM EST [facility] Immature Gran % 0.5 % 2:18 PM EST [facility] Immature Gran Absolute 0.09(H) 0.00 - 0.04 x10(3)/mc L 07/29/2024 2:18 PM EST [facility] Blood VENOUS BLOOD SPECIMEN / Unknown Venipuncture / Unknown 07/29/2024 2:03 PM EST 07/29/2024 2:13 PM EST Vahe Marvin MD HEMATOLOGY ORDERABLE S Performing Organization Address City/[facility]/ZIP Co de Phone Number [facility] [place] [address] * Phosphorus (07/29/2024 2:03 PM EST) Phosphorus 2.5 2.5 - 4.5 mg/dL 07/29/2024 2:52 PM EST [facility] Blood VENOUS BLOOD SPECIMEN / Unknown Venipuncture / Unknown 07/29/2024 2:03 PM EST 07/29/2024 2:14 PM EST Vahe Marvin MD CHEMISTRY ORDERABLES Performing Organization Address City/[facility]/ZIP Co de Phone Number [facility] [place] [address] * Magnesium (07/29/2024 2:03 PM EST) Magnesium 0.70 0.69 - 1.07 mMol/L 07/29/2024 2:52 PM EST [facility] Blood VENOUS BLOOD SPECIMEN / Unknown Venipuncture / Unknown 07/29/2024 2:03 PM EST 07/29/2024 2:14 PM EST Vahe Marvin MD CHEMISTRY ORDERABLES [facility] [place] [address] * (ABNORMAL) Comprehensive metabolic panel (07/29/2024 2:03 PM EST) Glucose 243(H) 65 - 199 mg/dL 07/29/2024 3:11 PM [facility] Comment:Glucose Concentratio n >=200 mg/dL plus symptoms is consistent with Diabetes Mellitus. Blood Urea Nitrogen 13 10 - 20 mg/dL 07/29/2024 3:11 PM [facility] [...] 0.5 <=1.3 mg/dL 07/29/2024 3:11 PM EST [facility] Est Glomerular [...] MD CHEMISTRY ORDERABLES [facility] [place] [address] * (ABNORMAL) Troponin - Single (07/29/2024 2:03 [...] found in the [facility] Laboratory Test Catalog Troponin - https://[email or web address].org/catalogs/565/files/33937 Reference: Fourth [place] Definition of Myocardial Infarction. Journal of the [place] College [employer] 2018;72:8761-8894 Blood VENOUS BLOOD SPECIMEN / Unknown Venipuncture / Unknown 07/29/2024 2:03 PM EST 07/29/2024 2:14 PM EST Vahe Marvin MD CHEMISTRY ORDERABLES [facility] [place] [address] * (ABNORMAL) Blood Gas, Venous POC (07/29/2024 2:01 PM EST) pH, Venous 7.30(L) 7.32 - 7.42 07/29/2024 2:02 PM EST [facility] PCO2, Venous 42 38 [...] Venous 0.8 % 07/29/2024 2:02 PM EST [facility] Comment: Nonsmokers: 0.5-1.5% COHB ?? Smokers: Variable ??but usually less than 10% ?? Toxic: 20-30% COHB ?? Lethal: Greater than 60% COHB Methemoglobin, Venous 0.3 <=1.5 % 07/29/2024 2:02 PM EST [facility] Sodium, Venous 137 135 - 145 mmol/L 07/29/2024 2:02 PM EST [facility] Potassium, Venous 3.6 3.5 - 5.0 mmol/L 07/29/2024 2:02 PM [facility] Chloride, Venous 103 98 - 107 mmol/L 07/29/2024 2:02 PM [facility] Glucose, Venous 229(H) 65 - 199 mg/dL 07/29/2024 2:02 PM [facility] Comment:Glucose Concentratio n >=200 mg/dL plus symptoms is consistent with Diabetes Mellitus. Lactate, Venous 3.1(H) 0.5 - 2.2 mmol/L 07/29/2024 2:02 PM [facility] Ionized Calcium, Venous 1.11(L) 1.15 - 1.33 mmol/L 07/29/2024 2:02 PM [facility] Blood VENOUS BLOOD SPECIMEN / Unknown 07/29/2024 2:01 PM EST 07/29/2024 2:02 PM EST Vahe Marvin MD POINT OF CARE TEST O RDERABLES [facility] [place] [address] * CARDIAC CATHETERIZATION (07/29/2024 1:20 PM EST) Anatomical Region Laterality Modality Other Narrative 07/29/2024 2:02 PM EST ?[facility] ? Cardiac Catheterization/Intervention Report ? Patient Name: Korey Montoya. ? Procedure Date: 07/29/2024 ? A #: [id number] ? Primary Physician: Shavonne, Vahe S ? Case #: [id number] ? File Name: [id number] ? Catheterization Order Number: [id number] ? [facility] ? Final Report [place], [place] ? Patient Name: ? Korey P. Montoya ?ID#: ?[id number] ? : ?1950 ? Procedure Date: ? July 29, 2024 ?Case #: ? [id number] ? Room: ? 5 ? Case Physician: [...] was Emergent. The indication for ?the track laborer visit is ACS less than or [...] 3.5 guiding catheter and a 3.5 Fr [facility] ??20 Mhz using ?Manual pullback. ??Imaging [...] A premounted 3.00 x 22 mm [place] (LOW) was deployed ? with a maximum [...] ??A premounted 3.00 x 08 mm [place] (LOW) ? was deployed with a maximum [...] administered prior to arrival in the track laborer. ?Recommended anti-platelet/anti-thrombotic regimen: ?Start aspirin 81 [...] able ?to start weaning his inotropes/vasopressors. A [place] Colette catheter was ?placed demonstrating improvement in [...] ventricular assist device insertion, right heart ?catheterization, [place] (flow directed cath) insertion, access site ?angiography, vascular ultrasound, venous line / sheath insert and vascular ?closure device. ? Vahe Marvin M.D. ? Electronically Signed by: Vahe Marvin M.D. ? Report Finalized: 07/29/2024 ??13:55 ? Report Last Ammended: 09/20/2024 ??15:21 ? Procedure Note Vahe Marvin MD - 09/20/2024 [facility] Cardiac Catheterization/Intervention Report Patient Name: Korey Montoya Procedure Date: 07/29/2024 A #: [id number] Primary Physician: Vahe Marvin Case #: [id number] File Name: [id number] Catheterization Order Number: [id number] [facility] FinalReport [place], [place] Patient Name: Korey Montoya ID#:[id number] :1950 Procedure Date: July 29, 2024 Case [...] were performed on an emergent basis. History Korye Montoya is a 74 year old man. He has hypertension. The patient's smoking status is Former. He has hypercholesterolemiamanaged with lipid therapy. The patient is also status post an acute STelevation myocardial infarction. Prior to the initiation of this procedure,the patient was designated as ASA Class IV. The [facility] clinical frailtyscale is 4: Vulnerable. Diagnostic Tests: Electrocardiography: EKG was assessed by ECG. EKG was Abnormal. EKG showed STDeviation >= 0.5 mm. Medications Prior to Procedure: Angiotensin II Receptor Elvis and Statin. Indications for Diagnostic Cath: The priority of the diagnostic procedure was Emergent. Theindication for the track laborer visit is ACS less than or [...] 3.5 guiding catheter and a 3.[address] [facility] 20 Mhzusing Manual pullback. Imaging was [...] The priority for the procedure was Emergent.[facility] [...] The lesion was predilated with a 2.00mm [id number] MM balloon with a maximum inflation pressure of 12atmospheres. A premounted 3.00 x 22 mm [place] (LOW) wasdeployed with a maximum inflation pressure [...] atmospheres. A premounted 3.00 x 08 mm [place](LOW) was deployed with a maximum inflation pressure [...] administered prior to arrival in the track laborer. Recommended anti-platelet/anti-thrombotic regimen: Start aspirin 81 [...] wereable to start weaning his inotropes/vasopressors. A [place] Colette catheterwas placed demonstrating improvement in his [...] ventricular assist device insertion, right heart catheterization, [place] (flow directed cath) insertion, access site angiography, [...] [facility] Potassium, POC 3.4(L) 3.5 - [...] TEST O RDERABLES [facility] [place] [address] * (ABNORMAL) BLOOD GAS, POC (07/29/2024 12:12 [...] TEST O RDERABLES [facility] [place] [address] documented in this encounter Visit Diagnoses Diagnosis [...] must be infused through a CENTR[facility] Bag 07/30/2024 10:25 PM EST 20 mEq [...] must be infused through a [facility] Bag 08/01/2024 5:14 AM EST 20 mEq [...] Until Discontinued, Routine 1643 (Given - Provider: aPrvin Strauss RN) 1700 (Due) 1623 (Given - [...] Routine documented in this encounter Care Teams Tire Technician Relationship Specialty Start Date End Date Alexia Mtz, CERTIFIED [employer] [facility] [employer] [facility] [address] [place] [address] PCP - General Family Medicine 07/30/24 documented as of this encounter
--- OUTSIDE RECORDS SUMMARY | 2024-10-05 10:03 | XMS_ITS | Encounter Summary ---
[place] [address] Care Team Providers Care Mobile Health Vehicle Operator Name Role Phone Yoel Artis Ute ALCALA Primary Care Provider [phone] Reason for Visit * Auth/Cert (Routine) Specialty Diagnoses / Procedures Referred By Theodore t Referred To Contact Diagnoses STEMI (ST elevation myocardial infarction) STEMI Procedures ER IPI Vahe Marvin MD [facility] [place] [address] [facility] Referral ID Status Reason Start Date Expiration Date Visits Re quested Visits Authorized [id number] 1 1 Encounter Details Date Type Department Care Team (Late st Contact Info) Description 07/29/2024 12:00 PM EST - 07/29/2024 12:54 PM EST Surgery [place] [address] Vahe Marvin MD [facility] [place] [address] CARDIAC CATHETERIZATION Social History Tobacco Use Types Packs/Day Years Used Date Smoking Tobacco: Former Cigarettes Smokeless Tobacco: Never Alcohol Use Standard Drinks/Week Comments Not Currently 0 (1 standard drink = 0.6 oz pur e alcohol) [facility] Utilities Answer Date Recorded In [...] any time in the past 12 m [facility], were you homeless or living [...] Patient Age: 74 y.o. Language: Citizen Of [place] Race: White Ethnicity: Not nor Admit date: [...] please contact your inpatient physician through the [facility] Leather Products Supervisor . Issues afterhours and on weekends [...] EKG. Patient transferred via air ambulance to [facility] on 07/29 for LHC and LOW to [...] EKG. Was transferred via air ambulance to [facility] for further management and LHC demonstrated 100% [...] the next year. Access was via right LINOLEUM FLOOR INSTALLER and this sitewas clean, dry and [...] for Chest pain. Replaces: nitroGLYcerin 400 mcg/spray [place], Non-Aerosol 0.4 mg Quantity: 90 tablet Refills: [...] Refills: 0 STOPPED Medications nitroGLYcerin 400 mcg/spray [place], Non-Aerosol Commonly known as: NITROLINGUAL Replaced by: [...] of one year. After this time, your vehicle detailer will determine if you need to continue [...] away. Stay on the phone. The emergency grapple operator will tell you what to do. [...] appointments: During 8am-5pm Tuesday through Tuesday call [phone] to speak with a nurse in the cardiology clinic All other times call [phone] and ask to speak to the account manager relief intercell connector placer. Follow up Appointments: PCP Alexia Mtz, PROJECT MANAGEMENT IT SPECIALIST [phone]. Please call to establish a follow up appointment within 1-2 weeks of discharge. Cardiology. Referral to heart failure has been sent. General Instructions None Future Appointments and Orders Future Orders Complete By Expires Referral to Cardiac Rehab [[id number] Custom] As directed Process Instructions: If no progress note charted, please enter Clinical details in comments. Scheduling Instructions: Questions: My question or request is: STEMI, PCI- cardiac rehab at [facility] Referral to Cardiology [[id number] Custom] [...] of one year. After this time, your vehicle detailer will determine if you need to continue [...] away. Stay on the phone. The emergency grapple operator will tell you what to do. [...] appointments: During 8am-5pm Tuesday through Tuesday call [phone] to speak with a nurse in the cardiology clinic All other times call [phone] and ask to speak to the account manager relief intercell connector placer. Follow up Appointments: PCP Alexia Mtz, PROJECT MANAGEMENT IT SPECIALIST [phone]. Please call to establish a follow up [...] EKG. Patient transferred via air ambulance to [facility] on 07/29 for LHC and LOW to LAD for 100% occlusion Social History: Pt lives with his in a 1 level home with 2 NAOMI. 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 He [...] Total time: 35 (tef) minutes Time IN/OUT: 1223-4377 ZAIDA DUBOSE PT Pager: [phone] Physical Therapy Inpatient Rehabilitation Department * Yrn Velazquez MD - 08/03/2024 10:38 AM EST CV HOSPITALIST 2 - [facility] DAILY PROGRESS NOTE Page [phone] to reach a provider 04/04 Admit Date: [...] Compared to the overnight study by the intercell connector placer fellow the impella position is stable. 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 [facility] 07/29/24 Conclusions: * One vessel coronary artery disease (LAD) * Mild pulmonary hypertension * Elevated pulmonary capillary wedge pressure * Successful stent insertion of the proximal LAD lesion * See Dual Antiplatelet (DAPT) Recommendations above * Successful impella placement for cardiogenic shock. Telemetry: I have personally reviewed and interpreted the telemetry from the last 24 hours. [facility] Assessment: ASSESSMENT: Korey Montoya is a 74 y.o. male w/ PMH of hypertension, HLD, and BPH who presents for chief concern of chest pain after being found to have ST elevations on EKG. Patient transferred via air ambulance to [facility] on 07/29 for LHC and LOW to [...] be determined OT: PCP Alexia Mtz, PROJECT MANAGEMENT IT SPECIALIST [phone] * Zaida Dubose, PT - 08/02/2024 2:08 PM EST Physical Therapy Evaluation Patient profile: Korey Montoya is a 74 y.o. male w/ PMH of hypertension, HLD, and BPH who presents for chief concern of chest pain after being found to have ST elevations on EKG. Patient transferred via air ambulance to [facility] on 07/29 for LHC and LOW to LAD for 100% occlusion Social History: Pt lives with his in a 1 level home with 2 NAOMI. 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 He [...] Total time: 37 (eval) minutes Time IN/OUT: [id number] ZAIDA DUBOSE PT Pager: [phone] Physical Therapy Inpatient Rehabilitation Department * Gagan [...] EKG. Patient transferred via air ambulance to [facility] on 07/29 for LHC and LOW to LAD for 100% occlusion. TTE showed apical akinesis and inferior hypokinesis with EF 20%. RHC showed elevated filling pressures. Impella placed and P-level 6 at time of transfer to [facility]. CI initially 1.97, improved to 2.2 After [...] Name: Korey Montoya : 1950 PCP: Alexia Mzt APRN PCP phone number: [phone] Date of Admission: 07/29/2024 ( Hospital Day 4 days ) Attending:Brdigette Stauffer MD ID: Korey Montoya is a 74 y.o. male w/ PMH of hypertension, HLD, and BPH on Hospital Day4 for chief concern of chest pain after being found to have ST elevations on EKG. Patient transferred via air ambulance to [facility] on 07/29 for LHC and LOW to [...] 07/29/24 1621 PHART 7.48* 7.44 7.38 7.37 [id number] 29* 29* 34* 36 PO2ART 71* 109* 141* 71* ISK7NHI 20.6 19.4* 19.5* 20.4 VBG (Venous Blood Gas) Recent Labs 07/29/24 1401 PHVEN 7.30* PO2VEN 39 JPL0KIN 20.1* Mixed Venous Sat No results for input(s): U6NZAY8 in the last 168 hours. Objective: Vitals [...] 07/29/24 1621 PHART 7.48* 7.44 7.38 7.37 QVQ4IOH 29* 29* 34* 36 PO2ART 71* 109* 141* 71* NQI5WVB 20.6 19.4* 19.5* 20.4 VBG (Venous Blood Gas) Recent Labs 07/29/24 1401 PHVEN 7.30* PO2VEN 39 NKY1GFG 20.1* Mixed Venous Sat No results for input(s): E4ABLS5 in the last 168 hours. Microbiology: Microbiology Results (Last 30 days) Procedure Component Value Units Date/Time Blood culture [[id number]] Collected: 07/29/24 160 Lab Status: Preliminary result Specimen: Blood, Venous Updated: 08/01/24 170 Blood Culture No growth at 72 hours Blood culture [[id number]] Collected: 07/29/24 160 Lab Status: Preliminary result Specimen: Blood, Venous Updated: 08/01/24 170 Blood Culture No growth at 72 hours Imaging: Results for orders placed or performed during the hospital encounter of 07/29/24 XR Chest One View (Exam End: 07/29/2024 2:30 PM) Result Value WORKSTATION ID [id number] Impression 1. No pulmonary edema. 2. No pleural effusion. 3. No pneumothorax. Thank you for letting us participate in the care of this patient. If you are a health care provider and have any questions regarding this report, please contact the number below. For patients who have questions please contact the health manager medicare marketing that requested your imaging first. Electronically signed by: Chris Candelaria MD, [facility] ([phone]), at 07/29/2024 3:21 PM TTE ( 07/30/24) [...] Compared to the overnight study by the intercell connector placer fellow the impella position is stable. The [...] EKG. Patient transferred via air ambulance to [facility] on 07/29 for LHC and LOW to [...] Susannah Ornelas MD Internal Medicine, PGY-1 Cardiology, [facility] 08/02/24 12:45 PM CARDIOLOGY STAFF NOTE I [...] to floor. Krystal Parker MD, [facility] Staff Bee Farmer feed and farm management adviser * Gagan Catherine MD - 08/01/2024 11:12 [...] EKG. Patient transferred via air ambulance to [facility] on 07/29 for LHC and LOW to [...] PCP: Alexia Mtz APRN PCP phone number: [phone] Date of Admission: 07/29/2024 ( Hospital Day 3 days ) Attending:Krystal Parker MD ID: Korey Montoya is a 74 y.o. male w/ PMH of hypertension, HLD, and BPH on Hospital Day3 for chief concern of chest pain after being found to have ST elevations on EKG. Patient transferred via air ambulance to [facility] on 07/29 for LHC and LOW to [...] 07/29/24 1621 PHART 7.48* 7.44 7.38 7.37 MJQ8TUG 29* 29* 34* 36 PO2ART 71* 109* 141* 71* ISE7HCJ 20.6 19.4* 19.5* 20.4 VBG (Venous Blood Gas) Recent Labs 07/29/24 1401 PHVEN 7.30* PO2VEN 39 FQL1XDO 20.1* Mixed Venous Sat No results for input(s): L4VZMF7 in the last 168 hours. PA Catheter [...] 07/29/24 1621 PHART 7.48* 7.44 7.38 7.37 LBH5OEH 29* 29* 34* 36 PO2ART 71* 109* 141* 71* BNZ5ZWT 20.6 19.4* 19.5* 20.4 VBG (Venous Blood Gas) Recent Labs 07/29/24 1401 PHVEN 7.30* PO2VEN 39 IAR1TIS 20.1* Mixed Venous Sat No results for input(s): U1YTXH0 in the last 168 hours. Microbiology: Microbiology Results (Last 30 days) Procedure Component Value Units Date/Time Blood culture [[id number]] Collected: 07/29/241607 Lab Status: Preliminary result Specimen: Blood, Venous Updated: 07/31/241700 Blood Culture No growth at 48 hours Blood culture [[id number]] Collected: 07/29/241607 Lab Status: Preliminary result Specimen: Blood, Venous Updated: 07/31/241700 Blood Culture No growth at 48 hours Imaging: Results for orders placed or performed during the hospital encounter of 07/29/24 XR Chest One View (Exam End: 07/29/2024 2:30 PM) Result Value WORKSTATION ID [id number] Impression 1. No pulmonary edema. 2. No pleural effusion. 3. No pneumothorax. Thank you for letting us participate in the care of this patient. If you are a health care provider and have any questions regarding this report, please contact the number below. For patients who have questions please contact the health manager medicare marketing that requested your imaging first. Electronically signed by: Chris Candelaria MD, [facility] ([phone]), at 07/29/2024 3:21 PM TTE ( 07/30/24) [...] Compared to the overnight study by the intercell connector placer fellow the impella position is stable. The [...] EKG. Patient transferred via air ambulance to [facility] on 07/29 for LHC and LOW to [...] questions answered. Krystal Parker MD, [facility], [facility] Staff Bee Farmer feed and farm management adviser * Krystal Parker MD - 07/31/2024 1:06 [...] EKG. Patient transferred via air ambulance to [facility] on 07/29 for LHC and LOW to LAD for 100% occlusion. TTE showed apical akinesis and inferior hypokinesis with EF 20%. RHC showed elevated filling pressures. Impella placed and P-level 6 at time of transfer to [facility]. CI initially 1.97, improved to 2.2 After impella. Received about 3 L of fluid during procedural course. Patient initially required norepinephrine 30, epinephrine 10, and vasopressin 0.04 for hemodynamic support, which was weaned upon arrival to [facility] to norepinephrine 20and levo 0.04 N - [...] PCP: Alexia Mtz APRN PCP phone number: [phone] Date of Admission: 07/29/2024 ( Hospital Day 2 days ) Attending:Krystal Parker MD ID: Korey Montoya is a 74 y.o. male w/ PMH of hypertension, HLD, and BPH on Hospital Day2 for chief concern of chest pain after being found to have ST elevations on EKG. Patient transferred via air ambulance to [facility] on 07/29 for LHC and LOW to [...] 0057 07/29/24 1621 PHART 7.44 7.38 7.37 FPW9DBM 29* 34* 36 PO2ART 109* 141* 71* QAO6MLE 19.4* 19.5* 20.4 VBG (Venous Blood Gas) Recent Labs 07/29/24 1401 PHVEN 7.30* PO2VEN 39 FVU8IYJ 20.1* Mixed Venous Sat No results for input(s): G4JAMW1 in the last 168 hours. PA Catheter [...] 0057 07/29/24 1621 PHART 7.44 7.38 7.37 LGX9ZYG 29* 34* 36 PO2ART 109* 141* 71* IJI1HEA 19.4* 19.5* 20.4 VBG (Venous Blood Gas) Recent Labs 07/29/24 1401 PHVEN 7.30* PO2VEN 39 YYO0PAI 20.1* Mixed Venous Sat No results for input(s): F9BRCI2 in the last 168 hours. Microbiology: Microbiology Results (Last 30 days) Procedure Component Value Units Date/Time Blood culture [[id number]] Collected: 07/29/24 160 Lab Status: Preliminary result Specimen: Blood, Venous Updated: 07/30/24 170 Blood Culture No Growth at 18-24 hrs. Blood culture [[id number]] Collected: 07/29/241607 Lab Status: Preliminary result Specimen: Blood, Venous Updated: 07/30/241700 Blood Culture No Growth at 18-24 hrs. Imaging: Results for orders placed or performed during the hospital encounter of 07/29/24 XR Chest One View (Exam End: 07/29/2024 2:30 PM) Result Value WORKSTATION ID [id number] Impression 1. No pulmonary edema. 2. No pleural effusion. 3. No pneumothorax. Thank you for letting us participate in the care of this patient. If you are a health care provider and have any questions regarding this report, please contact the number below. For patients who have questions please contact the health manager medicare marketing that requested your imaging first. Electronically signed by: Chris Candelaria MD, [facility] ([phone]), at 07/29/2024 3:21 PM TTE ( 07/30/24) [...] Compared to the overnight study by the intercell connector placer fellow the impella position is stable. The [...] EKG. Patient transferred via air ambulance to [facility] on 07/29 for LHC and LOW to [...] work to optimize volume status while continuing ofolcbe-gntpby-lenquoysdf therapies at this time. Obtain comprehensive TTE. [...] EKG. Patient transferred via air ambulance to [facility] on 07/29 for LHC and LOW to LAD for 100% occlusion. TTE showed apical akinesis and inferior hypokinesis with EF 20%. RHC showed elevated filling pressures. Impella placed and P-level 6 at time of transfer to [facility]. CI initially 1.97, improved to 2.2 After impella. Received about 3 L of fluid during procedural course. Patient initially required norepinephrine 30, epinephrine 10, and vasopressin 0.04 for hemodynamic support, which was weaned upon arrival to [facility] to norepinephrine 20and levo 0.04 N - [...] PCP: Yoel Artis APRN PCP phone number: [phone] Date of Admission: 07/29/2024 ( Hospital Day 1 day ) Attending:Aubree Silverio MD ID: Korey Montoya is a 74 y.o. male w/ PMH of hypertension, HLD, and BPH on Hospital Day1 for chief concern of chest pain after being found to have ST elevations on EKG. Patient transferred via air ambulance to [facility] on 07/29 for LHC and LOW to [...] 0057 07/29/24 1621 PHART 7.44 7.38 7.37 GDP1IQA 29* 34* 36 PO2ART 109* 141* 71* OPK2PRO 19.4* 19.5* 20.4 VBG (Venous Blood Gas) Recent Labs 07/29/24 1401 PHVEN 7.30* PO2VEN 39 RZF8YVC 20.1* Lactate ( Last 12 hours) 1.3 >> 1.2 Mixed Venous Sat No results for input(s): U4IKFV0 in the last 168 hours. PA Catheter [...] 0057 07/29/24 1621 PHART 7.44 7.38 7.37 NIB4QZY 29* 34* 36 PO2ART 109* 141* 71* VAR7CUY 19.4* 19.5* 20.4 VBG (Venous Blood Gas) Recent Labs 07/29/24 1401 PHVEN 7.30* PO2VEN 39 MJK8HVP 20.1* Mixed Venous Sat No results for input(s): H5JHMM3 in the last 168 hours. Microbiology: Microbiology Results (Last 30 days) Procedure Component Value Units Date/Time Blood culture [[id number]] Collected: 07/29/24 1608 Lab Status: In process Specimen: Blood, Venous Updated: 07/29/24 1626 Blood culture [[id number]] Collected: 07/29/24 1608 Lab Status: In process Specimen: Blood, Venous Updated: 07/29/24 1615 Imaging: Results for orders placed or performed during the hospital encounter of 07/29/24 XR Chest One View (Exam End: 07/29/2024 2:30 PM) Result Value WORKSTATION ID [id number] Impression 1. No pulmonary edema. 2. No pleural effusion. 3. No pneumothorax. Thank you for letting us participate in the care of this patient. If you are a health care provider and have any questions regarding this report, please contact the number below. For patients who have questions please contact the health manager medicare marketing that requested your imaging first. Medications Scheduled [...] EKG. Patient transferred via air ambulance to [facility] on 07/29 for LHC and LOW to [...] EKG. Patient transferred via air ambulance to [facility] on 07/29 for LHC and LOW to [...] EKG. Was transferred via air ambulance to [facility] for further management and [facility] demo nstrated 100% occlusion. No significant RCA, LMCA, or LCX disease. LOW placed in LAD with some residual distal disease meriting placement of overlapping distal stent. TTE showed apical akinesis and inferior hypokinesis with EF 20%. RHC showed elevated filling pressures. Impella placed and P-level 6 at time of transfer to [facility]. CI initially 1.97, improved to 2.2 After impella. Received about 3 L of fluid during procedural course. Patient initially required norepinephrine, epinephrine, and vasopressin for hemodynamic support, which was weaned upon arrival to [facility] to norepinephrine 20 and levo 0.04 (epinephrine [...] (WRVU 4.57) performed by Brandan Mcgovern MD [facility] ENDOSCOPY Significant Family History: Family History [...] mouth. Past Week nitroGLYcerin (NITROLINGUAL) 400 mcg/spray [place], Non-Aerosol 1 spray to anus for proctalgia [...] 3.5 guiding catheter and a 3.5 Fr [place] [facility] [place] [address] 20 Mhz using Manual pullback. Imaging [...] priority for the procedure was Emergent. The [facility] indication for the procedure [...] atmospheres. A premounted 3.00 x 22 mm [place] (LOW) was deployed with a maximum inflation [...] A premounted 3.00 x 08 mm [place] (LOW) was deployed with a maximum inflation [...] a limited study performed by a fellow intercell connector placer to evaluate for cardiogenic shock with impella [...] Compared to the overnight study by the intercell connector placer fellow the impella position is stable. The [...] EKG. Patient transferred via air ambulance to [facility] on 07/29 for LHC and LOW to [...] PCP: Yoel Artis APRN PCP phone number: [phone] Date of Admission: 07/29/2024 ( Hospital Day 0 days ) Attending:Aubree Silverio MD ID: Korey Montoya is a 74 y.o. male w/ PMH of hypertension, HLD, and BPH who presents for chief concern of chest pain after being found to have ST elevations on EKG. Patient transferred via air ambulance to [facility] on 07/29 for LHC and LOW to LAD for 100% occlusion. HPI: Korey Montoya is a 74 y.o. male w/ PMH of hypertension, HLD, and BPH who presents for chief concern of chest pain after being found to have ST elevations on EKG. Patient transferred via air ambulance to [facility] on 07/29 for LHC and LOW to [...] EKG. Was transferred via air ambulance to [facility] for further management and LHC demonstrated 100% [...] (WRVU 4.57) performed by Brandan Mcgovern MD [facility] ENDOSCOPY Family History Family History Problem [...] Blood Gas) No results for input(s): PHART, DVS5GMF, PO2ART, JEG8GSM, LACTATEVEN, FIP9TWN, PFRATIOART2 in the last 168 hours. VBG (Venous Blood Gas) Recent Labs 07/29/24 1401 PHVEN 7.30* PO2VEN 39 VOF0MXH 20.1* Mixed Venous Sat No results for input(s): C6XMUS9 in the last 168 hours. PA Catheter [...] Blood Gas) No results for input(s): PHART, WLW0DVL, PO2ART, QHA6BVA, LACTATEVEN, LKU4LAN, PFRATIOART2 in the last 168 hours. VBG (Venous Blood Gas) Recent Labs 07/29/24 1401 PHVEN 7.30* PO2VEN 39 QEW6NCE 20.1* Mixed Venous Sat No results for input(s): F3HKWZ3 in the last 168 hours. Microbiology: Microbiology [...] EKG. Patient transferred via air ambulance to [facility] on 07/29 for LHC. Found to have 100% occlusion of LAD for which he underwent LOW to LAD.Otherwise no other significant vessel disease. Fahad is currently hemodynamically tenuous but improving upon admission to [facility], requiring hemodynamic support with norepinephrine and vasopressin at time of admission along with mechanical support with Impella device. Reassuringly, he demonstrates decreasing pressor requirements since admission to [facility], with epinephrine completely weaned. He does demonstrate [...] Bernardo Amos MD Internal Medicine, PGY-3 Cardiology, [facility] 07/29/24 3:14 PM Cardiology Attending Note I [...] MD, FACP, FACC Section of Cardiovascular Medicine [facility] It Web Development Consultantanalog device designer [facility] [employer] [facility] This patient meets or has [...] to the planned procedure. Hand Hygiene: The bow maker production did perform hand hygiene prior to arterial [...] ease. Good wave form. Ivan Hernandez MD Manager Strategy Associated attestation - Rolando Yeh MD - [...] in an outpatient cardiac rehabilitation program at [facility] was discussed. Patient agrees to [...] No Patient is insured through: Primary Insurance: [employer] MANAGED MEDICARE Payor: [employer] MA[employer]GED MEDICARE / [facility] / Product [...] of Discharge: 08/04/2024 Gaby Wong RN, CM [phone] * Initial Assessments - Char Meza OT - 08/03/2024 10:00 AM EST Occupational Therapy Evaluation Patient profile: Korey Montoya is a 74 y.o. male admitted on 07/29/2024 w/ PMH of hypertension, HLD, and BPH who presents for chief concern of chest pain after being found to have ST elevations onEKG. Patient transferred via air ambulance to [facility] on 07/29 for LHC and LOW to LAD for 100% occlusion. Past Medical History: Diagnosis Date ADHD HLD (hyperlipidemia) HTN (hypertension) Tremor Past Surgical History: Procedure Laterality Date HAND SURGERY PRO COLONOSCOPY, REMV LESN, SNARE N/A 08/30/2023 COLONOSCOPY, POLYPECTOMY, REMOVAL LESION BY SNARE (WRVU 4.57) performed by Brandan Mcgovern MD [facility] ENDOSCOPY Social History: Patient lives with his . Home Setup: 2 NAOMI to a 1 level home. DME: none Baseline ADL/Mobility: Independent with ADLs and IADLs. Enjoys walking. able assist as needed. Precautions/Special Considerations: Full code. Risk for falls. Subjective: I have access to an [employer] gym. (Educated to wait for MD to [...] consults recommended at this time. Goals: Korey oMntoya does not demonstrate further skilled acute OT needs and is safe to discharge home with family as needed per OT perspective. Please re- consult if patient's status changes and needs for skilled OT arise. Plan: OT: Therapy Frequency (OT): evaluation only Total Minutes, Occupational Therapy: 14 ([id number] (evaluation)) 2017 OT Evaluation Code Rationale: Diagnosis [...] and measurable assessment of functional outcome. Pager: [phone] Char Meza OT 08/03/2024 Occupational Therapy Rehabilitation [...] (Interventions Implemented as Appropriate) Flowsheets (Taken 08/01/2024 9443) Outcome Summary: A+O, no pain. NSR. MAP [...] Procedure Note: Patient Name: Korey Montoya : [id number] MR#: [id number] Case Date: 07/31/2024 [employer] Supervisor: Surgeons and Role: * Maldonado Luis MD - Primary * Quinten Charles PA - Physician Customs Guard Preoperative diagnosis: shock, impella Postoperative diagnosis: * same * Procedure(s) performed: Impella removal form right LINOLEUM FLOOR INSTALLER Access: Right LINOLEUM FLOOR INSTALLER A time-out was conducted prior to [...] Admitted From: Transfer from another hospital Location: [facility] Reason for Hospitalization: chest pain Past [...] receiving care in [place] must abide by [place] law. The hierarchy [...] (i) The agent with financial power of district attorney or a conservator appointed in [...] it) Home Address confirmed as: Mailing Address: [address] [address] Physical Address: [address] [place] [address] Social & Family Supports: All names listed [...] Coverage: Primary Insurance: [employer] MANAGED MEDICARE [facility] / Plan: [facility] MANAGED MEDICARE COMPLETE / Product Type: *No Product type* / Secondary Insurance: N/A ; Prescription Coverage: Yes Preferred Pharmacy: [address] - [address] [address] [place] Status: Patient is a : No Primary Care Provider confirmed: Alexia Mtz, PROJECT MANAGEMENT IT SPECIALIST [phone] Patient/Caregiver Goals of Treatment: return home Potential [...] 6:25 PM EST 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 CXR and EKG completed. Impella [...] Procedure Note: Patient Name: Korey Montoya : [id number] MR#: [id number] Case Date: 07/29/2024 [employer] Supervisor: Surgeons and Role: * Vahe Marvin MD - Primary * Susannah Watts PA - Physician Customs Guard Preoperative diagnosis: STEMI Postoperative diagnosis: * STEMI, LAD Artery * * Cardiogenic Shock * Procedure(s) performed: [facility] Coronary angiogram Stent insertion coronary IVUS coronary Venous line insert [facility] [place]lette Catheter Vascular closure device Ventricular assist [...] x 22 mm to 14 deonna JEISON [place] with LIZ 3 flow. Residual distal disease at distal stent, overlapping distal stent was inserted with 3.0 x 8 mm JEISON [place]. Systolic's in the 80's sustained. Patient re [...] 9:30 AM EST Appointment Non-[place] [address] Mushtaq Murphy, PROJECT MANAGEMENT IT SPECIALIST 10/31/2024 11:00 AM EST Office Visit Cardiology at [address] [address] Mushtaq Murphy, PROJECT MANAGEMENT IT SPECIALIST Scheduled Orders Name Type Priority Associated [...] HEMATOLOGY ORDERABLE S [facility] [place] [address] * Magnesium (08/04/2024 6:08 AM EST) Pathologist [facility] Magnesium 0.85 0.69 - 1.07 mMol/L 08/04/2024 7:07 AM [facility] Blood VENOUS BLOOD SPECIMEN / Unknown Venipuncture / Unknown 08/04/2024 6:08 AM EST 08/04/2024 6:19 AM EST Bridgette Stauffer MD CHEMISTRY ORDERABLES [facility] [place] [address] * Basic Metabolic Panel (08/04/2024 6:08 AM EST) Pathologist [facility] Glucose 93 65 - 199 mg/dL 08/04/2024 [...] MD CHEMISTRY ORDERABLES [facility] [place] [address] * (ABNORMAL) CBC (with Diff) (08/03/2024 5:16 [...] Organization Address City/[facility]/ZIP Co de Phone Number [facility] [place] [address] * Magnesium (08/03/2024 5:16 AM EST) Magnesium 0.89 0.69 - 1.07 mMol/L 08/03/2024 5:56 AM [facility] Blood VENOUS BLOOD SPECIMEN / Unknown Venipuncture / Unknown 08/03/2024 5:16 AM EST 08/03/2024 5:23 AM EST Bridgette Stauffer MD CHEMISTRY ORDERABLES [facility] [place] [address] * (ABNORMAL) Basic Metabolic Panel (08/03/2024 5:16 AM EST) Glucose 98 65 - 199 mg/dL 08/03/2024 5:56 AM [facility] Comment:Glucose Concentratio n >=200 mg/dL plus symptoms is consistent with Diabetes Mellitus. Blood Urea Nitrogen 16 10 - 20 mg/dL 08/03/2024 5:56 AM [facility] Creatinine 0.85 0.80 - 1.50 mg/dL 08/03/2024 5:56 AM EST [facility] Sodium 137 135 - 145 mMol/L 08/03/2024 5:56 AM [facility] Potassium 4.5 3.5 - 5.0 mMol/L 08/03/2024 5:56 AM [facility] Chloride 106 98 - 107 mMol/L 08/03/2024 5:56 AM [facility] Carbon Dioxide 21(L) 22 - 31 mMol/L 08/03/2024 5:56 AM [facility] Anion Gap 10 5 - 15 mMol/L 08/03/2024 5:56 AM [facility] Calcium 8.3(L) 8.5 - [...] MD CHEMISTRY ORDERABLES [facility] [place] [address] * POC, GLUCOSE (08/02/2024 7:47 AM EST) Glucometer, POC 89 65 - 199 mg/dL 08/02/2024 7:47 AM [facility] Comment:Supplemental ranges: <140 mg/dL before meals <180 mg/dL all other times of the day. Blood CAPILLARY BLOOD / Unknown 08/02/2024 7:47 AM EST 08/02/2024 7:47 AM EST Krystal Parker MD POINT OF CARE TEST O RDERABLES [facility] [place] [address] * (ABNORMAL) CBC (with Diff) (08/02/2024 4:20 AM EST) [facility] White Blood Cell 8.51 4.00 - 9.50 x10(3)/mc L 08/02/2024 4:50 AM [facility] Red Blood Cell 4.41(L) 4.58 - 5.54 x10(6)/mc L 08/02/2024 4:50 AM [facility] Hemoglobin 12.2(L) 13.7 - 16.5 g/dL 08/02/2024 4:50 AM [facility] Hematocrit 35.8(L) 40.5 - [...] Organization Address City/[facility]/ZIP Co de Phone Number [facility] [place] [address] * Magnesium (08/02/2024 4:20 AM EST) Magnesium 0.79 0.69 - 1.07 mMol/L 08/02/2024 5:06 AM [facility] Blood VENOUS BLOOD SPECIMEN / Unknown Venipuncture / Unknown 08/02/2024 4:20 AM EST 08/02/2024 4:37 AM EST Bridgette Stauffer MD CHEMISTRY ORDERABLES Performing Organization Address City/[facility] Co de Phone Number [facility] [place] [address] * (ABNORMAL) Basic Metabolic Panel (08/02/2024 4:20 [...] - 107 mMol/L 08/02/2024 5:06 AM EST [facility] Carbon Dioxide 23 22 - [...] Stauffer MD CHEMISTRY ORDERABLES Performing Organization Address City/State/[facility] Co de Phone Number [facility] [place] [address] * Potassium (08/01/2024 8:39 PM EST) Potassium 4.0 3.5 - 5.0 mMol/L 08/01/2024 9:21 PM EST [facility] Blood VENOUS BLOOD SPECIMEN / Unknown Venipuncture / Unknown 08/01/2024 8:39 PM EST 08/01/2024 8:51 PM EST Aubree Silverio MD CHEMISTRY ORDERABL ES Performing Organization Address [facility] [place]/[facility] Co de Phone Number [facility] [place] [address] * POC, GLUCOSE (08/01/2024 8:35 PM EST) Glucometer, POC 112 65 - 199 mg/dL 08/01/2024 8:36 PM EST [facility] Comment:Supplemental ranges: <140 mg/dL before meals <180 mg/dL all other times of the day. Blood CAPILLARY BLOOD / Unknown 08/01/2024 8:35 PM EST 08/01/2024 8:36 PM EST Krystal Parker MD POINT OF CARE TEST O RDKAY Performing Organization Address [facility] [place]/[facility] de Phone Number [facility] [place] [address] * POC, GLUCOSE (08/01/2024 4:55 PM EST) [...] Organization Address [facility] [place]/[facility] Co de Phone Number [facility] [place] [address] * POC, GLUCOSE (08/01/2024 12:42 PM EST) Glucometer, POC 130 65 - 199 mg/dL 08/01/2024 12:43 PM EST [facility] Comment:Supplemental ranges: <140 mg/dL before meals <180 mg/dL all other times of the day. Blood CAPILLARY BLOOD / Unknown 08/01/2024 12:42 PM EST 08/01/2024 12:43 PM EST Krystal Parker MD POINT OF CARE TEST O RDERASHAY Performing Organization Address City/[facility]/ZIP Co de Phone Number [facility] [place] [address] * (ABNORMAL) Cooximetry, POC (08/01/2024 10:45 AM EST) pO2, Coox 32 mmHg 08/01/2024 10:48 AM EST [facility] Hemoglobin, Coox 12.9(L) 13.7 - 16.5 g/dL 08/01/2024 10:48 AM EST [facility] Oxyhemoglobin, Coox 66.7 % 08/01/2024 10:48 AM [facility] Carboxyhemoglo bin, Coox 1.1 % 08/01/2024 10:48 AM EST [facility] Comment: Nonsmokers: 0.5-1.5% COHB ?? Smokers: Variable ??but usually less than 10% ?? Toxic: 20-30% COHB ?? Lethal: Greater than 60% COHB Methemoglobin, Coox 0.3 <=1.5 % 08/01/2024 10:48 AM EST [facility] Blood (Mixed Venous) 08/01/2024 10:45 AM EST 08/01/2024 10:48 AM EST Krystal Parker MD POINT OF CARE TEST O RDKAY [facility] [place] [address] * Potassium (08/01/2024 8:20 AM EST) Potassium 4.0 3.5 - 5.0 mMol/L 08/01/2024 10:17 AM EST [facility] Blood ARTERIAL BLOOD / Unknown Venipuncture / Unknown 08/01/2024 8:20 AM EST 08/01/2024 8:30 AM EST Aubree Silverio MD CHEMISTRY ORDERABL ES Performing Organization Address City/[facility]/ZIP Co de Phone Number [facility] [place] [address] * POC, GLUCOSE (08/01/2024 7:44 AM EST) [facility] Glucometer, POC 86 65 - 199 mg/dL 08/01/2024 7:44 AM [facility] Comment:Supplemental ranges: <140 mg/dL before meals <180 mg/dL all other times of the day. Blood CAPILLARY BLOOD / Unknown 08/01/2024 7:44 AM EST 08/01/2024 7:44 AM EST Krystal Parker MD POINT OF CARE TEST O RDERABLES Performing Organization Address [facility] [place]/[facility] Co de Phone Number [facility] [place] [address] * (ABNORMAL) CBC (with Diff) (08/01/2024 4:18 AM EST) [facility] White Blood Cell 8.51 4.00 - 9.50 x10(3)/mc L 08/01/2024 4:53 AM [facility] Red Blood Cell 4.12(L) [...] % 0.2 % 08/01/2024 4:53 AM EST [facility] Baso Absolute <0.04 0.00 - 0.10 x10(3)/mc L 08/01/2024 4:53 AM EST [facility] Immature Gran % 0.4 % 4:53 AM [facility] Immature Gran Absolute <0.04 0.00 - 0.04 x10(3)/mc L 08/01/2024 4:53 AM EST [facility] Blood VENOUS BLOOD SPECIMEN / Unknown Venipuncture / Unknown 08/01/2024 4:18 AM EST 08/01/2024 4:29 AM EST Bridgette Stauffer MD HEMATOLOGY ORDERABLE S [facility] [place] [address] * Magnesium (08/01/2024 4:18 AM EST) Magnesium 0.74 0.69 - 1.07 mMol/L 08/01/2024 5:00 AM [facility] Blood VENOUS BLOOD SPECIMEN / Unknown Venipuncture / Unknown 08/01/2024 4:18 AM EST 08/01/2024 4:29 AM EST Bridgette Stauffer MD CHEMISTRY ORDERABLES [facility] [place] [address] * (ABNORMAL) Basic Metabolic Panel (08/01/2024 4:18 AM EST) Glucose 107 65 - 199 mg/dL 08/01/2024 5:00 AM [facility] Comment:Glucose Concentratio n >=200 mg/dL plus symptoms is consistent with Diabetes Mellitus. Blood Urea Nitrogen 8(L) 10 - 20 mg/dL 08/01/2024 5:00 AM EST [facility] Creatinine 0.82 0.80 - 1.50 [...] MD CHEMISTRY ORDERABLES [facility] [place] [address] * POC, GLUCOSE (07/31/2024 8:41 PM EST) [facility] Signature Glucometer, POC 73 65 - 199 mg/dL 07/31/2024 8:41 PM EST [facility] Comment:Supplemental ranges: <140 mg/dL before meals <180 mg/dL all other times of the day. Blood CAPILLARY BLOOD / Unknown 07/31/2024 8:41 PM EST 07/31/2024 8:41 PM EST Krystal Parker MD POINT OF CARE TEST O RDERABLES [facility] [place] [address] * CARDIAC CATHETERIZATION (07/31/2024 5:53 PM EST) Anatomical Region Laterality Modality Other Narrative 08/01/2024 12:37 PM EST ?[facility] ? Cardiac Catheterization/Intervention Report ? Patient Name: Korey Montoya Kyrie. ? Procedure Date: 07/31/2024 ? A #: [id number] ? Primary Physician: Maldonado Luis ? Case #: [id number] ? File Name: [id number] ? Catheterization Order Number: [id number] ? [facility] ? Final Report [place], [place] ? Patient Name: ? Korey Mittal. Jan ?ID#: ?[id number] ? : ?1950 ? Procedure Date: ? [...] ? Comments: ?Impella removed from the right LINOLEUM FLOOR INSTALLER with deployment of Perclose and ?Angioseal. [...] Procedure Note Maldonado Luis MD - 08/01/2024 [facility] Cardiac Catheterization/Intervention Report Patient Name: Korey Montoya Procedure Date: 07/31/2024 A #: [id number] Primary Physician: Maldonado Luis Case #: [id number] File Name: [id number] Catheterization Order Number: [id number] [facility] FinalReport [place], [place] Patient Name: Korey Montoya ID#:[id number] :1950 Procedure Date: July 31, 2024 Case [...] designated as ASA Class IV. The [facility] clinical frailtyscale is 4: Vulnerable. Diagnostic [...] procedures. Comments: Impella removed from the right LINOLEUM FLOOR INSTALLER with deployment of Perclose and Angioseal. [...] 65 - 199 mg/dL 07/31/2024 11:04 AM [facility] Comment:Supplemental ranges: <140 mg/dL before meals <180 mg/dL all other times of the day. Blood CAPILLARY BLOOD / Unknown 07/31/2024 11:04 AM EST 07/31/2024 11:04 AM EST Krystal Parker MD POINT OF CARE TEST O RDERABLES [facility] [place] [address] * (ABNORMAL) Blood Gas, Arterial POC (07/31/2024 [...] TEST O RDERABLES [facility] [place] [address] * POC, GLUCOSE (07/31/2024 7:47 AM EST) Glucometer, POC 82 65 - 199 mg/dL 07/31/2024 7:53 AM [facility] Comment:Supplemental ranges: <140 mg/dL before meals <180 mg/dL all other times of the day. Blood CAPILLARY BLOOD / Unknown 07/31/2024 7:47 AM EST 07/31/2024 7:53 AM EST Krystal Parker MD POINT OF CARE TEST O RDERABLES [facility] [place] [address] * (ABNORMAL) CBC (with Diff) (07/31/2024 1:08 [...] - 0.40 x10(3)/mc L 07/31/2024 1:28 AM [facility] Basophil % 0.3 % 07/31/2024 1:28 AM [facility] Baso Absolute <0.04 0.00 - 0.10 x10(3)/mc L 07/31/2024 1:28 AM [facility] Immature Gran % 0.2 % 1:28 AM [facility] Immature Gran Absolute <0.04 0.00 - 0.04 x10(3)/mc L 07/31/2024 1:28 AM [facility] Blood VENOUS BLOOD SPECIMEN / Unknown Venipuncture / Unknown 07/31/2024 1:08 AM EST 07/31/2024 1:18 AM EST Bridgette Stauffer MD HEMATOLOGY ORDERABLE S [facility] [place] [address] * Magnesium (07/31/2024 1:08 AM EST) Pathologist [facility] Magnesium 0.89 0.69 - 1.07 mMol/L 07/31/2024 1:46 AM [facility] Blood VENOUS BLOOD SPECIMEN / Unknown Venipuncture / Unknown 07/31/2024 1:08 AM EST 07/31/2024 1:18 AM EST Bridgette Stauffer MD CHEMISTRY ORDERABLES Performing Organization Address City/[facility]/ZIP Co de Phone Number [facility] [place] [address] * (ABNORMAL) Basic Metabolic Panel (07/31/2024 1:08 AM EST) [facility] Glucose 97 65 - 199 mg/dL 07/31/2024 1:46 AM [facility] Comment:Glucose Concentratio n >=200 mg/dL plus symptoms is consistent with Diabetes Mellitus. Blood Urea Nitrogen 11 10 - 20 mg/dL 07/31/2024 1:46 AM [facility] Creatinine 0.96 0.80 - 1.50 mg/dL 07/31/2024 1:46 AM [facility] Sodium 140 135 - 145 mMol/L 07/31/2024 1:46 AM [facility] Potassium 4.1 3.5 - 5.0 mMol/L 07/31/2024 1:46 AM [facility] Chloride 110(H) 98 - 107 mMol/L 07/31/2024 1:46 AM [facility] Carbon Dioxide 24 22 - 31 mMol/L 07/31/2024 1:46 AM [facility] Anion Gap 6 5 - 15 mMol/L 07/31/2024 1:46 AM [facility] Calcium 7.7(L) 8.5 - 10.5 mg/dL 07/31/2024 1:46 AM EST [facility] Est Glomerular Filtration Rate - Male 84 mL/min/1. 73 m?? 07/31/2024 1:46 AM EST [facility] Comment: [...] MD CHEMISTRY ORDERABLES [facility] [place] [address] * (ABNORMAL) Hepatic Function Panel (07/31/2024 1:08 AM EST) Albumin 3.1(L) 3.2 - 5.2 g/dL 07/31/2024 1:46 AM EST [facility] Aspartate Aminotransferase 192(H) <=39 unit/L 07/31/2024 1:46 AM EST [facility] Alanine Aminotransferase 59(H) 0 - 55 unit/L 07/31/2024 1:46 AM EST [facility] Alkaline Phosphatase 46 40 - 130 unit/L 07/31/2024 1:46 AM EST [facility] Bilirubin, Total 0.4 <=1.3 mg/dL 07/31/2024 1:46 AM EST [facility] Bilirubin, Direct <0.2 0.0 - 0.3 mg/dL 07/31/2024 1:46 AM EST [facility] Protein, Total 5.0(L) 6.1 - 8.0 g/dL 07/31/2024 1:46 AM EST [facility] Blood VENOUS BLOOD SPECIMEN / Unknown Venipuncture / Unknown 07/31/2024 1:08 AM EST 07/31/2024 1:18 AM EST Krystal Parker MD CHEMISTRY ORDERABLES Performing Organization Address City/[facility]/ZIP Co de Phone Number [facility] [place] [address] * POC, GLUCOSE (07/30/2024 8:03 PM EST) Glucometer, POC 86 65 - 199 mg/dL 07/30/2024 8:03 PM EST [facility] Comment:Supplemental ranges: <140 mg/dL before meals <180 mg/dL all other times of the day. Blood CAPILLARY BLOOD / Unknown 07/30/2024 8:03 PM EST 07/30/2024 8:03 PM EST Krystal Parker MD POINT OF CARE TEST O RDERABLES Performing Organization Address [facility] [place]/[facility] Co de Phone Number [facility] [place] [address] * Potassium (07/30/2024 8:03 PM EST) Potassium 3.8 3.5 - 5.0 mMol/L 07/30/2024 9:13 PM EST [facility] Blood VENOUS BLOOD SPECIMEN / Unknown Venipuncture / Unknown 07/30/2024 8:03 PM EST 07/30/2024 8:22 PM EST Aubree Silverio MD CHEMISTRY ORDERABL ES Performing Organization Address [facility] [place]/[facility] Co de Phone Number [facility] [place] [address] * POC, GLUCOSE (07/30/2024 6:23 PM EST) [...] Organization Address City/[facility]/ZIP Co de Phone Number [facility] [place] [address] * POC, GLUCOSE (07/30/2024 5:08 PM EST) Glucometer, POC 78 65 - 199 mg/dL 07/30/2024 5:08 PM EST [facility] Comment:Supplemental ranges: <140 mg/dL before meals <180 mg/dL all other times of the day. Blood CAPILLARY BLOOD / Unknown 07/30/2024 5:08 PM EST 07/30/2024 5:08 PM EST Krystal Parker MD POINT OF CARE TEST O RDERABLES Performing Organization Address [facility] [place]/[facility]/ZIP Co de Phone Number [facility] [place] [address] * (ABNORMAL) Phosphorus (07/30/2024 3:08 PM EST) Phosphorus 2.1(L) 2.5 - 4.5 mg/dL 07/30/2024 3:58 PM EST [facility] Blood VENOUS BLOOD SPECIMEN / Unknown Venipuncture / Unknown 07/30/2024 3:08 PM EST 07/30/2024 3:12 PM EST Aubree Silverio MD CHEMISTRY ORDERABL ES Performing Organization Address City/[facility]/ZIP Co de Phone Number [facility] [place] [address] * Magnesium (07/30/2024 3:08 PM EST) Magnesium 0.90 0.69 - 1.07 mMol/L 07/30/2024 3:58 PM EST [facility] Blood VENOUS BLOOD SPECIMEN / Unknown Venipuncture / Unknown 07/30/2024 3:08 PM EST 07/30/2024 3:12 PM EST Aburee Silverio MD CHEMISTRY ORDERABL ES [facility] [place] [address] * (ABNORMAL) Basic Metabolic Panel (07/30/2024 3:08 PM EST) Pathologist [facility] Glucose 105 65 - 199 mg/dL 07/30/2024 4:17 PM EST [facility] Comment:Glucose Concentratio n >=200 mg/dL plus symptoms is consistent with Diabetes Mellitus. Blood Urea Nitrogen 13 10 - 20 mg/dL 07/30/2024 4:17 PM EST [facility] Creatinine 1.01 0.80 - 1.50 mg/dL 07/30/2024 4:17 PM EST [facility] Sodium 141 135 - 145 mMol/L 07/30/2024 4:17 PM EST [facility] Potassium 3.4(L) 3.5 - 5.0 mMol/L 07/30/2024 4:17 PM EST [facility] Chloride 109(H) 98 - 107 mMol/L 07/30/2024 4:17 PM EST [facility] Carbon Dioxide 21(L) 22 - 31 mMol/L 07/30/2024 4:17 PM EST [facility] Anion Gap 11 5 - 15 mMol/L 07/30/2024 4:17 PM EST [facility] Calcium 7.9(L) 8.5 - 10.5 mg/dL 07/30/2024 4:17 PM EST [facility] Est Glomerular Filtration Rate - Male 79 mL/min/1. 73 m?? 07/30/2024 4:17 PM EST [facility] Comment: [...] [facility] Co de Phone Number [facility] [place] [address] * ECHO LMTD W CONTRAST W LMTD SPEC DOPP COLOR DOPP (07/30/2024 11:42 AM EST) Anatomical Region Laterality Modality Cardiac Other 07/30/2024 10:2 2 AM EST Narrative 07/30/2024 12:34 PM EST [address] [place] [address] ? Echocardiogram Report Name: KOREY MONTOYA ? Study Date: 07/30/2024 10:22 AMBP: 124/66 mmHg : 1950 ? Height: 168 cm ? Account: [id number] Age: 74 yrs ? Weight: 65 kg Gender: Male ?BSA: 1.7 m2 Ordering Physician: Aubree Silverio MD Referring Physician: CHAPARRO FERRERA Performed By: OMERO Millan Reason For Study: ST elevation myocardial infarction involving left anterior descending (LAD) coronary artery Interpreting Fellow: Ivan Hernandez. Exam Location: [facility]. Interpretation Summary Left ventricle is severely [...] Compared to the overnight study by the intercell connector placer fellow the impella position is stable. 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 Procedure Limited - 86005. Image enhancement Definity was used for both [...] Note Kathleen Banda MD - 07/30/2024 [address] [place] [id number] Echocardiogram Report Name: KOREY MONTOYA Kyrie Study Date: 410:22 AMBP: 124/66 mmHg : 1950 Height: 168 cm Account: [id number] Age: 74 yrs Weight: 65 kg Gender: Male BSA: 1.7 m2 Ordering Physician: Aubree Silverio MD Referring Physician: CHAPARRO FERRERA Performed By: OMERO Millan Reason For Study: ST elevation myocardial infarction involving leftanterior descending (LAD) coronary artery Interpreting Fellow: Ivan Hernandez. Exam Location: [facility]. Interpretation Summary Left ventricle is severely [...] Compared to the overnight study by the intercell connector placer fellow the impella positionis stable. The global left ventricular systolic function has improvedpredominantly via recruitment outside the LAD territory which remains akinetic. Procedure Limited - [id number]. Image enhancement Definity was used for both [...] 65 - 199 mg/dL 07/30/2024 11:17 AM [facility] Comment:Supplemental ranges: <140 mg/dL before meals <180 mg/dL all other times of the day. Blood CAPILLARY BLOOD / Unknown 07/30/2024 11:17 AM EST 07/30/2024 11:17 AM EST Aubree Silverio MD POINT OF CARE TEST ORDERABLES [facility] [place] [address] * (ABNORMAL) Blood Gas, Arterial POC (07/30/2024 8:16 AM EST) Pathologist [facility] pH, Arterial 7.44 7.35 - 7.45 07/30/2024 8:17 AM [facility] PCO2, Arterial 29(L) 35 - 45 mmHg 07/30/2024 8:17 AM [facility] PO2, Arterial 109(H) 85 - 104 mmHg 07/30/2024 8:17 AM [facility] Bicarbonate, Arterial 19.4(L) 20.0 [...] CARE TEST ORDERABLES [facility] [place] [address] * (ABNORMAL) Troponin - Single (07/30/2024 8:09 AM EST) Troponin-T, High Sensitivity 8,651(H) <=22 ng/L 07/30/2024 9:06 AM [facility] Comment: This patient's troponin [...] troponin value can be found in the [facility] Test Catalog Troponin - https://[email or web address]/catalogs/565/files/43152 Reference: Fourth Wendell Definition of Myocardial Infarction. Journal of the [place] College [employer]iology 2018;72:9985-4182 Blood VENOUS BLOOD SPECIMEN / Unknown Venipuncture / Unknown 07/30/2024 8:09 AM EST 07/30/2024 8:26 AM EST Aubree Silverio MD CHEMISTRY ORDERABL ES Performing Organization Address [facility] [place]/[facility] Co de Phone Number [facility] [place] [address] * POC, GLUCOSE (07/30/2024 7:40 AM EST) Pathologist [facility] Glucometer, POC 111 65 - 199 mg/dL 07/30/2024 7:40 AM EST [facility] Comment:Supplemental ranges: <140 mg/dL before meals <180 mg/dL all other times of the day. Blood CAPILLARY BLOOD / Unknown 07/30/2024 7:40 AM EST 07/30/2024 7:40 AM EST Aubree Silverio MD POINT OF CARE TEST ORDERABLES Performing Organization Address [facility] Co de Phone Number [facility] [place] [address] * (ABNORMAL) CBC (with Diff) (07/30/2024 2:11 [...] 6.10 x10(3)/mc L 07/30/2024 2:33 AM EST [facility] Lymph % 5.1 % 07/30/2024 2:33 AM [facility] Lymph Absolute 0.57(L) 0.90 - 3.20 x10(3)/mc L 07/30/2024 2:33 AM EST [facility] Monocyte % 5.4 % 07/30/2024 2:33 AM EST [facility] Monocyte Absolute 0.61 0.30 - [...] Immature Gran % 0.4 % 2:33 AM [facility] Immature Gran Absolute 0.05(H) 0.00 - 0.04 x10(3)/mc L 07/30/2024 2:33 AM [facility] Blood VENOUS BLOOD SPECIMEN / Unknown Venipuncture / Unknown 07/30/2024 2:11 AM EST 07/30/2024 2:22 AM EST Bridgette Stauffer MD HEMATOLOGY ORDERABLE S [facility] [place] [address] * Magnesium (07/30/2024 2:11 AM EST) Magnesium 1.01 0.69 - 1.07 mMol/L 07/30/2024 2:51 AM [facility] Blood VENOUS BLOOD SPECIMEN / Unknown Venipuncture / Unknown 07/30/2024 2:11 AM EST 07/30/2024 2:22 AM EST Bridgette Stauffer MD CHEMISTRY ORDERABLES [facility] [place] [address] * (ABNORMAL) Basic Metabolic Panel (07/30/2024 2:11 [...] 3.5 - 5.0 mMol/L 07/30/2024 2:51 AM [facility] Chloride 105 98 - [...] Stauffer MD CHEMISTRY ORDERABLES Performing Organization Address City/State/[facility] Co ri Phone Number [facility] [place] [address] * (ABNORMAL) Cooximetry, POC (07/30/2024 1:00 AM [...] CARE TEST ORDERABLES [facility] [place] [address] * (ABNORMAL) Blood Gas, Arterial POC (07/30/2024 [...] - 107 mmol/L 07/30/2024 12:58 AM EST [facility] Lactate, Arterial 1.3 0.5 - 2.2 mmol/L 07/30/2024 12:58 AM EST [facility] Flow Rate 2.0 L/min 07/30/2024 [...] [facility] Co de Phone Number [facility] [place] [address] * (ABNORMAL) Troponin - Single (07/29/2024 10:31 [...] troponin value can be found in the [facility] Test Catalog Troponin - https://[email or web address].org/catalogs/565/files/50294 Reference: Fourth Wendell Definition of Myocardial Infarction. Journal of the [place] [employer] College of Cardiology 2018;72:8315-1309 Blood VENOUS BLOOD SPECIMEN / Unknown Venipuncture / Unknown 07/29/2024 10:31 PM EST 07/29/2024 10:36 PM EST Yrn Velazquez MD CHEMISTRY ORDERABL ES Performing Organization Address [facility]/ZIP Co de Phone Number [facility] [place] [address] * Potassium (07/29/2024 8:11 PM EST) Potassium 4.1 3.5 - 5.0 mMol/L 07/29/2024 8:52 PM EST [facility] Blood VENOUS BLOOD SPECIMEN / Unknown Venipuncture / Unknown 07/29/2024 8:11 PM EST 07/29/2024 8:16 PM EST Aubree Silverio MD CHEMISTRY ORDERABL ES Performing Organization Address City/[facility]/ZIP Co de Phone Number [facility] [place] [address] * (ABNORMAL) Troponin - Single (07/29/2024 8:11 [...] troponin value can be found in the [facility] Test Catalog Troponin - https://[email or web address].org/catalogs/565/files/79245 Reference: Fourth Wendell Definition of Myocardial Infarction. Journal of the [place] College [employer]iology 2018;72:1902-3198 Blood VENOUS BLOOD SPECIMEN / Unknown Venipuncture / Unknown 07/29/2024 8:11 PM EST 07/29/2024 8:16 PM EST Aubree Silverio MD CHEMISTRY ORDERABL ES Performing Organization Address City/[facility]/ZIP Co de Phone Number [facility] [place] [address] * (ABNORMAL) Phosphorus (07/29/2024 8:11 PM EST) Phosphorus 2.1(L) 2.5 - 4.5 mg/dL 07/29/2024 8:52 PM EST [facility] Blood VENOUS BLOOD SPECIMEN / Unknown Venipuncture / Unknown 07/29/2024 8:11 PM EST 07/29/2024 8:16 PM EST Aubree Silverio MD CHEMISTRY ORDERABL ES [facility] [place] [address] * POC, GLUCOSE (07/29/2024 8:09 PM EST) [...] Organization Address City/[facility]/ZIP Co de Phone Number [facility] [place] [address] * ABORH RECHECK (07/29/2024 6:43 PM EST) Pathologist [facility] ABORH Recheck AB POSITIVE 07/29/2024 10:13 PM EST [facility] Blood VENOUS BLOOD SPECIMEN / Unknown Venipuncture / Unknown 07/29/2024 6:43 PM EST 07/29/2024 7:15 PM EST Aubree Silverio MD BLOOD BANK LAB ORD ERABLES Performing Organization Address City/[facility] Co de Phone Number [facility] [place] [address] * POC, GLUCOSE (07/29/2024 5:57 PM EST) [...] Organization Address City/[facility]/ZIP Co de Phone Number [facility] [place] [address] * Type and screen ([facility]/CGP/MAGALIE) (07/29/2024 5:56 PM EST) Pathologist [facility] ABORH Type AB POSITIVE 07/29/2024 9:44 PM EST [facility] PATIENT HISTORY Not Found 07/29/2024 9:44 PM EST [facility] Expires at [id number] on: 08/01/2024 07/29/2024 9:44 PM EST [facility] ANTIBODY SCREEN AUTOMATED Negative 07/29/2024 9:44 PM EST [facility] T&S only valid at [facility] 07/29/2024 9:44 PM EST [facility] Blood VENOUS BLOOD SPECIMEN / Unknown Venipuncture / Unknown 07/29/2024 5:56 PM EST 07/29/2024 6:07 PM EST Narrative [facility] - 07/29/2024 9:44 PM EST This Type and Screen result is only valid at the [facility] Aubree Silverio MD BLOOD BANK LAB ORD ERABLES [facility] [place] [address] * (ABNORMAL) Troponin - Single (07/29/2024 4:52 [...] troponin value can be found in the [facility] Test Catalog Troponin - https://[facility]-.testcatalog.org/catalogs/565/files/18672 Reference: Fourth Wendell Definition of Myocardial Infarction. Journal of the [place] College of Cardiology 2018;72:3427-8292 Blood VENOUS BLOOD SPECIMEN / Unknown Venipuncture / Unknown 07/29/2024 4:52 PM EST 07/29/2024 4:57 PM EST Aubree Silverio MD CHEMISTRY ORDERABL ES Performing Organization Address City/[facility]/ZIP Co de Phone Number [facility] [place] [address] * EKG 12 Lead (07/29/2024 4:21 PM EST) Ventricular rate 72 BPM MUSE SYSTEM Atrial Rate 72 BPM MUSE SYSTEM P-R Interval 168 ms MUSE SYSTEM QRS Duration 82 ms MUSE SYSTEM Q-T Interval 392 ms MUSE SYSTEM QTC Calculated (Bezet) 429 ms MUSE SYSTEM Calculated P [place] 71 degrees MUSE SYSTEM Calculated R [place] 77 degrees MUSE SYSTEM Calculated T [place] 28 degrees MUSE SYSTEM INTERPRETATION Sinus rhythm [...] Silverio MD ECG ORDERABLES Performing Organization Address City/[facility]/ZIP Co de Phone Number MUSE SYSTEM * [...] - 1.33 mmol/L 07/29/2024 4:22 PM EST [facility] Glucose, Arterial 181 65 - 199 mg/dL 07/29/2024 4:22 PM EST [facility] Comment:Glucose Concentratio n >=200 mg/dL plus symptoms is consistent with Diabetes Mellitus. Blood ARTERIAL BLOOD / Unknown 07/29/2024 4:21 PM EST 07/29/2024 4:22 PM EST Aubree Silverio MD POINT OF CARE TEST ORDERABLES [facility] [place] [address] * POC, GLUCOSE (07/29/2024 4:19 PM EST) Glucometer, POC 185 65 - 199 mg/dL 07/29/2024 4:19 PM EST [facility] Comment:Supplemental ranges: <140 mg/dL before meals <180 mg/dL all other times of the day. Blood CAPILLARY BLOOD / Unknown 07/29/2024 4:19 PM EST 07/29/2024 4:19 PM EST Aubree Silverio MD POINT OF CARE TEST ORDERABLES Performing Organization Address [facility]/ZIP Co de Phone Number [facility] [place] [address] * Blood culture (07/29/2024 4:08 PM EST) Blood Culture No growth at 120 hours 08/03/2024 5:01 PM EST [facility] Blood VENOUS BLOOD SPECIMEN / Unknown Venipuncture / Unknown 07/29/2024 4:08 PM EST 07/29/2024 4:15 PM EST Aubree Silverio MD MICROBIOLOGY - BLO OD ORDERABLES Performing Organization Address City/[facility]/ZIP Co de Phone Number [facility] [place] [address] * Blood culture (07/29/2024 4:08 PM EST) Blood Culture No growth at 120 hours 08/03/2024 5:01 PM EST [facility] Blood VENOUS BLOOD SPECIMEN / Unknown Venipuncture / Unknown 07/29/2024 4:08 PM EST 07/29/2024 4:26 PM EST Aubree Silverio MD MICROBIOLOGY - BLO OD ORDERABLES [facility] [place] [address] * XR Chest One View (07/29/2024 2:30 PM EST) Pathologist [employer] WORKSTATION ID [id number] RAD Anatomical Region Laterality Modality Chest N/A [...] medicare marketing that requested your imaging first. Vahe Marvin MD IMG DX ORDERABLES * (ABNORMAL) APTT (07/29/2024 2:03 PM EST) Partial Thromboplastin Time >160(HHH) 25 - 37 sec 07/29/2024 2:56 PM EST [facility] Blood VENOUS BLOOD SPECIMEN / Unknown Venipuncture / Unknown 07/29/2024 2:03 PM EST 07/29/2024 2:13 PM EST Vahe Marvin MD HEMATOLOGY ORDERABLE S [facility] [place] [address] * (ABNORMAL) Prothrombin Time (07/29/2024 2:03 PM [...] Organization Address City/[facility]/ZIP Co de Phone Number [facility] [place] [address] * CRP, acute inflammation (07/29/2024 2:03 PM EST) [facility] C-Reactive Protein <3.0 <=4.9 mg/L 07/29/2024 2:52 PM EST [facility] Blood VENOUS BLOOD SPECIMEN / Unknown Venipuncture / Unknown 07/29/2024 2:03 PM EST 07/29/2024 2:14 PM EST Vahe Marvin MD CHEMISTRY ORDERABLES [facility] [place] [address] * Lipid Panel (Reflex Direct LDL) (07/29/2024 2:03 PM EST) Pathologist [facility] Cholesterol, Total 133 mg/dL 07/29/2024 2:52 PM [...] ACC/AHA Guidelines (most recently Rolf et al. [facility] 06/15/22): * For individuals with atherosclerotic [...] Organization Address City/[facility]/ZIP Co de Phone Number [facility] [place] [address] * TSH [place] (07/29/2024 2:03 PM EST) Thyroid Stimulating Hormone 0.70 0.27 - 4.20 mcIU/mL 07/29/2024 2:52 PM EST [facility] Blood VENOUS BLOOD SPECIMEN / Unknown Venipuncture / Unknown 07/29/2024 2:03 PM EST 07/29/2024 2:14 PM EST Vahe Marvin MD CHEMISTRY ORDERABLES Performing Organization Address City/[facility]/ZIP Co de Phone Number [facility] [place] [address] * Hemoglobin A1c (07/29/2024 2:03 PM EST) [facility] Hemoglobin A1c 5.3 4.3 - [...] cell turnover may not be sales representative gas service of glycemic control. Reference Interval: 4.3 - 5.6% 5.7 - 6.4%: Consistent with prediabetes >=6.5%: Consistent with diagnosis of diabetes mellitus Estimated Average Glucose 07/29/2024 2:41 PM EST [facility] Comment:Estimated Average Gl ucose not appropriate for patients over 70 years of age. Blood VENOUS BLOOD SPECIMEN / Unknown Venipuncture / Unknown 07/29/2024 2:03 PM EST 07/29/2024 2:14 PM EST Narrative [facility] - 07/29/2024 2:41 PM EST Estimated average glucose (eAG) is calculated from the equation described in: Quinten DM, Rikki J, Reno R, et al. ??Translating the A1C assay into estimated average glucose values. ??Diabetes Care 2008:31(8):9284-5684. Additional resources are available on the ADA website (diabetes.org). Vahe Marvin MD CHEMISTRY ORDERABLES Performing Organization Address City/[facility]/ZIP Co de Phone Number [facility] [place] [address] * (ABNORMAL) CBC (with Diff) (07/29/2024 2:03 PM EST) [facility] White Blood Cell 19.50(H) 4.00 - 9.50 x10(3)/mc L 07/29/2024 2:18 PM [facility] Red Blood Cell 4.81 [...] 6.10 x10(3)/mc L 07/29/2024 2:18 PM EST [facility] Lymph % 2.7 % 07/29/2024 2:18 PM EST [facility] Lymph Absolute 0.52(L) 0.90 - [...] - 0.04 x10(3)/mc L 07/29/2024 2:18 PM [facility] Blood VENOUS BLOOD SPECIMEN / Unknown Venipuncture / Unknown 07/29/2024 2:03 PM EST 07/29/2024 2:13 PM EST Vahe Marvin MD HEMATOLOGY ORDERABLE S [facility] [place] [address] * Phosphorus (07/29/2024 2:03 PM EST) Phosphorus 2.5 2.5 - 4.5 mg/dL 07/29/2024 2:52 PM [facility] Blood VENOUS BLOOD SPECIMEN / Unknown Venipuncture / Unknown 07/29/2024 2:03 PM EST 07/29/2024 2:14 PM EST Vahe Marvin MD CHEMISTRY ORDERABLES Performing Organization Address [facility] Co de Phone Number [facility] [place] [address] * Magnesium (07/29/2024 2:03 PM EST) Magnesium 0.70 0.69 - 1.07 mMol/L 07/29/2024 2:52 PM EST [facility] Blood VENOUS BLOOD SPECIMEN / Unknown Venipuncture / Unknown 07/29/2024 2:03 PM EST 07/29/2024 2:14 PM EST Vahe Marvin MD CHEMISTRY ORDERABLES Performing Organization Address [facility] Co de Phone Number [facility] [place] [address] * (ABNORMAL) Comprehensive metabolic panel (07/29/2024 2:03 [...] MD CHEMISTRY ORDERABLES [facility] [place] [address] * (ABNORMAL) Troponin - Single (07/29/2024 2:03 [...] troponin value can be found in the [facility] Test Catalog Troponin - https://[facility]-.testcatalog.org/catalogs/565/files/53874 Reference: Fourth Wendell Definition of Myocardial Infarction. Journal of the [place] College [employer] Cardiology 2018;72:0095-4453 Blood VENOUS BLOOD SPECIMEN / Unknown Venipuncture / Unknown 07/29/2024 2:03 PM EST 07/29/2024 2:14 PM EST Vahe Marvin MD CHEMISTRY ORDERABLES [facility] [place] [address] * (ABNORMAL) Blood Gas, Venous POC (07/29/2024 [...] - 2.2 mmol/L 07/29/2024 2:02 PM EST [facility] Ionized Calcium, Venous 1.11(L) 1.15 - 1.33 mmol/L 07/29/2024 2:02 PM EST [facility] Blood VENOUS BLOOD SPECIMEN / Unknown 07/29/2024 2:01 PM EST 07/29/2024 2:02 PM EST Vahe Marvin MD POINT OF CARE TEST O RDERABLES Performing Organization Address [facility] [place]/State/[facility] Co de Phone Number [facility] [place] [address] * CARDIAC CATHETERIZATION (07/29/2024 1:20 PM EST) Anatomical Region Laterality Modality Other Narrative 07/29/2024 2:02 PM EST ?[facility] ? Cardiac Catheterization/Intervention Report ? Patient Name: Korey Montoya Kyrie. ? Procedure Date: 07/29/2024 ? A #: [id number] ? Primary Physician: Vahe Marvin ? Case #: [id number] ? File Name: [id number] ? Catheterization Order Number: [id number] ? [facility] ? Final Report [place], [place] ? Patient Name: ? Korey Mittal. Jan ?ID#: ?[id number] ? : ?1950 ? Procedure Date: ? [...] was Emergent. The indication for ?the manager labor relations visit is ACS less than or equal [...] 3.5 guiding catheter and a 3.5 Fr [place] [address] ??20 Mhz using ?Manual pullback. ??Imaging [...] ? A premounted 3.00 x 22 mm [place] (LOW) was deployed ? with a maximum [...] atmospheres. ??A premounted 3.00 x 08 mm [place] (LOW) ? was deployed with a maximum [...] administered prior to arrival in the manager labor relations. ?Recommended anti-platelet/anti-thrombotic regimen: ?Start aspirin 81 mg daily now and continue for 12 months then stop. ?Start clopidogrel 75 mg daily now and continue for indefinitely. ?These recommendations are made at the time of the intervention. Patient ?and provider preferences or a changing clinical situation may require ?modification of this regimen. Consult [facility] Interventional Cardiology for ?questions. ?The 1 year [...] able ?to start weaning his inotropes/vasopressors. A [place] Colette catheter was ?placed demonstrating improvement in his hemodynamics and the impella site ?was perclosed and hemostatic gauze was applied with excellent result. ?WIll transfer to the [facility] for further management. ?The attending physician was present for the entire procedure. ?Dr. Vahe Marvin M.D. was present during the moderate sedation ?intraservice time as documented by the sedation nurse. ??Case time = 01:26. ?Dr. Vahe Marvin M.D. performed the coronary angiography, left heart ?catheterization, IVUS # coronary, stent insertion-coronary, oximetry, ABG, ?transthoracic echo , ventricular assist device insertion, right heart ?catheterization, [place] (flow directed cath) insertion, access site ?angiography, vascular ultrasound, venous line / sheath insert and vascular ?closure device. ? Vahe S Shavonne, M.D. ? Electronically Signed by: Vahe S Shavonne, M.D. ? Report Finalized: 07/29/2024 ??13:55 ? Report Last Ammended: 09/20/2024 ??15:21 ? Procedure Note Vahe Marvin MD - 09/20/2024 [facility] Cardiac Catheterization/Intervention Report Patient Name: Korey Montoya Procedure Date: 07/29/2024 A #: [id number] Primary Physician: Vahe Marvin Case #: [id number] File Name: [id number] Catheterization Order Number: [id number] [facility] FinalReport [place], [place] Patient Name: Korey Montoya ID#:[id number] :1950 Procedure Date: July 29, 2024 Case [...] designated as ASA Class IV. The [facility] clinical frailtyscale is 4: Vulnerable. Diagnostic Tests: Electrocardiography: EKG was assessed by ECG. EKG was Abnormal. EKG showed STDeviation >= 0.5 mm. Medications Prior to Procedure: Angiotensin II Receptor Elvis and Statin. Indications for Diagnostic Cath: The priority of the diagnostic procedure was Emergent. Theindication for the manager labor relations visit is ACS less than or equal [...] 3.5 guiding catheter and a 3.5 Fr [place] [facility] [address] 20 Mhzusing Manual pullback. Imaging was [...] The priority for the procedure was Emergent.The [facility] indication for the procedure [...] The lesion was predilated with a 2.00mm [id number] MM balloon with a maximum inflation pressure of 12atmospheres. A premounted 3.00 x 22 mm [place] (LOW) wasdeployed with a maximum inflation pressure [...] atmospheres. A premounted 3.00 x 08 mm [place](LOW) was deployed with a maximum inflation pressure [...] administered prior to arrival in the manager labor relations. Recommended anti-platelet/anti-thrombotic regimen: Start aspirin 81 mg daily now and continue for 12 months then stop. Start clopidogrel 75 mg daily now and continue for indefinitely. These recommendations are made at the time of the intervention.Patient and provider preferences or a changing clinical situation mayrequire modification of this regimen. Consult [facility] Interventional Cardiologyfor questions. The 1 year bleeding [...] wereable to start weaning his inotropes/vasopressors. A [place] Colette catheterwas placed demonstrating improvement in his [...] ventricular assist device insertion, right heart catheterization, [place] (flow directed cath) insertion, access site angiography, vascular ultrasound, venous line / sheath insert andvascular closure device. Vahe Marvin M.D. Electronically Signed by: Vahe Marvin M.D. Report Finalized: 07/29/2024 13:55 Report Last Ammended: 09/20/2024 15:21 Vahe Marvin MD CARDIAC CATH ORDERAB LES * (ABNORMAL) BLOOD GAS, POC (07/29/2024 12:46 PM EST) Sodium, POC 139 135 - 145 mmol/L 07/30/2024 7:30 AM EST [facility] Potassium, POC 3.4(L) 3.5 - 5.0 mmol/L 07/30/2024 7:30 AM EST [facility] pH, POC 7.33(L) 7.35 - 7.45 07/30/2024 7:30 AM EST [facility] Ionized Calcium, POC 1.13(L) 1.15 [...] TEST O RDERABLES [facility] [place] [place] [address] * (ABNORMAL) BLOOD GAS, POC (07/29/2024 12:12 [...] TEST O RDERABLES [facility] [place] [address] documented in this encounter Visit Diagnoses Not [...] Routine documented in this encounter Care Teams Mobile Health Vehicle Operator Relationship Specialty Start Date End Date Yoel Artis APRN [address] [place] [address] PCP - General Internal Medicine 11/18/22 07/29/24 documented as of this encounter
--- OUTSIDE RECORDS SUMMARY | 2024-10-05 10:03 | XMS_ITS | Encounter Summary ---
[place] [address] Care Team Providers Care Operating Room Technician Name Role Phone Alexia Mtz FREDRICK Primary Care Provider [phone] Reason for Visit * Auth/Cert (Routine) Specialty Diagnoses / Procedures Referred By Theodore muro Referred To Contact Diagnoses STEMI (ST elevation myocardial infarction) STEMI Procedures ER SUI Vahe Marvin MD [facility] [place] [address] [facility] Referral ID Status Reason Start Date Expiration Date Visits Re quested Visits Authorized [id number] 1 1 Encounter Details Date Type Department Care Team (Late st Contact Info) Description 07/31/2024 4:30 PM EST - 07/31/2024 5:30 PM EST [place] [address] Maldonado Luis MD [facility] [place] [address] CARDIAC CATHETERIZATION Social History Tobacco Use Types Packs/Day Years Used Date Smoking Tobacco: Former Cigarettes Smokeless Tobacco: Never Alcohol Use Standard Drinks/Week Comments Not Currently 0 (1 standard drink = 0.6 oz pur e alcohol) [facility] Utilities Answer Date Recorded In the past 12 months has [employer], gas, oil, or water company threatened [...] Montoya Patient Age: 74 y.o. Language: South Sudanese Race: White Ethnicity: Not nor Admit date: [...] through the [facility] [employer] . Issues afterhours and on weekends will [...] the next year. Access was via right PROCESS AUTOMATION ENGINEER and this sitewas clean, dry and [...] for Chest pain. Replaces: nitroGLYcerin 400 mcg/spray [place], Non-Aerosol 0.4 mg Quantity: 90 tablet Refills: [...] Refills: 0 STOPPED Medications nitroGLYcerin 400 mcg/spray [place], Non-Aerosol Commonly known as: NITROLINGUAL Replaced by: [...] of one year. After this time, your elementary education tutor will determine if you need to continue [...] away. Stay on the phone. The emergency roll operator will tell you what to [...] appointments: During 8am-5pm Tuesday through Tuesday call [phone] to speak with a nurse in the cardiology clinic All other times call [phone] and ask to speak to the razor sharpener consulting nurse. Follow up Appointments: PCP Alexia Mtz, AGENCY MANAGER [phone]. Please call to establish a follow up appointment within 1-2 weeks of discharge. Cardiology. Referral to heart failure has been sent. General Instructions None Future Appointments and Orders Future Orders Complete By Expires Referral to Cardiac Rehab [XBI082 Custom] As directed Process Instructions: If no [...] of one year. After this time, your elementary education tutor will determine if you need to continue [...] away. Stay on the phone. The emergency roll operator will tell you what to [...] appointments: During 8am-5pm Tuesday through Tuesday call [phone] to speak with a nurse in the cardiology clinic All other times call [phone] and ask to speak to the razor sharpener consulting nurse. Follow up Appointments: PCP Alexia Mtz, AGENCY MANAGER [phone]. Please call to establish a follow up [...] home with 2 NAOMI. 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 [...] Total time: 35 (tef) minutes Time IN/OUT: 2455-0753 ZAIDA DUBOSE PT Pager: [phone] Physical Therapy Inpatient Rehabilitation Department * Yrn Ward MD - 08/03/2024 10:38 AM EST CV HOSPITALIST 2 - [facility] DAILY PROGRESS NOTE Page [phone] to reach a provider 04/04 Admit Date: [...] or before 29-JUL-2024) Lateral injury pattern ACUTE OK / STEMI Abnormal ECG When compared with [...] to the overnight study by the consulting nurse fellow the impella position is stable. 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 [facility] 07/29/24 Conclusions: * One vessel coronary artery disease (LAD) * Mild pulmonary hypertension * Elevated pulmonary capillary wedge pressure * Successful stent insertion of the proximal LAD lesion * See Dual Antiplatelet (DAPT) Recommendations above * Successful impella placement for cardiogenic shock. Telemetry: I have personally reviewed and interpreted the telemetry from the last 24 hours. [facility] Assessment: ASSESSMENT: Korey Montoya is a 74 y.o. male w/ PMH of hypertension, HLD, and BPH who presents for chief concern of chest pain after being found to have ST elevations on EKG. 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 [...] Total time: 37 (eval) minutes Time IN/OUT: 4788-3971 ZAIDA DUBOSE, PT Pager: [phone] Physical Therapy Inpatient Rehabilitation Department * Gagan [...] P-level 6 at time of transfer to [facility]. CI initially 1.97, improved to 2.2 After impella. Received about 3 L of fluid during procedural course. Patient initially required norepinephrine 30, epinephrine 10, and vasopressin 0.04 for hemodynamic support, which was weaned upon arrival to [facility] to norepinephrine 20and levo 0.04 N - [...] PCP: Alexia Mtz APRN PCP phone number: [phone] Date of Admission: 07/29/2024 ( Hospital Day [...] 07/29/24 1621 PHART 7.48* 7.44 7.38 7.37 [id number] 29* 29* 34* 36 PO2ART 71* 109* 141* 71* WEV5SEA 20.6 19.4* 19.5* 20.4 VBG (Venous Blood Gas) Recent Labs 07/29/24 1401 PHVEN 7.30* PO2VEN 39 KVP4RJS 20.1* Mixed Venous Sat No results for input(s): L6PFDG8 in the last 168 hours. Objective: Vitals [...] 07/29/24 1621 PHART 7.48* 7.44 7.38 7.37 ECF9UXS 29* 29* 34* 36 PO2ART 71* 109* 141* 71* YYP1XOS 20.6 19.4* 19.5* 20.4 VBG (Venous Blood Gas) Recent Labs 07/29/24 1401 PHVEN 7.30* PO2VEN 39 JXY5SFQ 20.1* Mixed Venous Sat No results for input(s): P2UGZF8 in the last 168 hours. Microbiology: Microbiology Results (Last 30 days) Procedure Component Value Units Date/Time Blood culture [[id number]] Collected: 07/29/241607 Lab Status: Preliminary result Specimen: Blood, Venous Updated: 08/01/241700 Blood Culture No growth at 72 hours Blood culture [[id number]] Collected: 07/29/241607 Lab Status: Preliminary result Specimen: Blood, Venous Updated: 08/01/241700 Blood Culture No growth at 72 hours Imaging: Results for orders placed or performed during the hospital encounter of 07/29/24 XR Chest One View (Exam End: 07/29/2024 2:30 PM) Result Value WORKSTATION ID [id number] Impression 1. No pulmonary edema. 2. No pleural effusion. 3. No pneumothorax. Thank you for letting us participate in the care of this patient. If you are a health care provider and have any questions regarding this report, please contact the number below. For patients who have questions please contact the health post anesthesia care unit nurse that requested your imaging first. Electronically signed by: Chris Candelaria MD, [facility] ([phone]), at 07/29/2024 3:21 PM TTE ( 07/30/24) [...] to the overnight study by the consulting nurse fellow the impella position is stable. [...] Susannah Ornelas MD Internal Medicine, PGY-1 Cardiology, [facility] 08/02/24 12:45 PM CARDIOLOGY STAFF NOTE I [...] today). Transfer to floor. Krystal Parker MD, [facility] Staff Disease Case Manager Rn issuer * Gagan Catherine MD - 08/01/2024 11:12 [...] P-level 6 at time of transfer to [facility]. CI initially 1.97, improved to 2.2 After impella. Received about 3 L of fluid during procedural course. Patient initially required norepinephrine 30, epinephrine 10, and vasopressin 0.04 for hemodynamic support, which was weaned upon arrival to [facility] to norepinephrine 20and levo 0.04 N - [...] documentation on the unit. Gagna Catherine MD 08/01/2024 * Krystal Parker MD - 08/01/2024 7:13 AM EST Images from the original note were not included. Cardiology ICU Progress Note Patient info: Name: Korey Montoya : 1950 PCP: Alexia Mtz APRN PCP phone number: [phone] Date of Admission: 07/29/2024 ( Hospital Day [...] 07/29/24 1621 PHART 7.48* 7.44 7.38 7.37 [id number] 29* 29* 34* 36 PO2ART 71* 109* 141* 71* TCP7UGJ 20.6 19.4* 19.5* 20.4 VBG (Venous Blood Gas) Recent Labs 07/29/24 1401 PHVEN 7.30* PO2VEN 39 RHD6HXV 20.1* Mixed Venous Sat No results for input(s): N4MFIT0 in the last 168 hours. PA Catheter [...] 07/29/24 1621 PHART 7.48* 7.44 7.38 7.37 EKQ2HVD 29* 29* 34* 36 PO2ART 71* 109* 141* 71* KLZ4XHO 20.6 19.4* 19.5* 20.4 VBG (Venous Blood Gas) Recent Labs 07/29/24 1401 PHVEN 7.30* PO2VEN 39 LYO4MST 20.1* Mixed Venous Sat No results for input(s): X3IXFK5 in the last 168 hours. Microbiology: Microbiology Results (Last 30 days) Procedure Component Value Units Date/Time Blood culture [[id number]] Collected: 07/29/24 1608 Lab Status: Preliminary result Specimen: Blood, Venous Updated: 07/31/24 170 Blood Culture No growth at 48 hours Blood culture [[id number]] Collected: 07/29/24 1608 Lab Status: Preliminary result Specimen: Blood, Venous Updated: 07/31/24 1701 Blood Culture No growth at 48 hours Imaging: Results for orders placed or performed during the hospital encounter of 07/29/24 XR Chest One View (Exam End: 07/29/2024 2:30 PM) Result Value WORKSTATION ID [id number] Impression 1. No pulmonary edema. 2. No pleural effusion. 3. No pneumothorax. Thank you for letting us participate in the care of this patient. If you are a health care provider and have any questions regarding this report, please contact the number below. For patients who have questions please contact the health post anesthesia care unit nurse that requested your imaging first. Electronically signed by: Chris Candelaria MD, [facility] ([phone]), at 07/29/2024 3:21 PM TTE ( 07/30/24) [...] to the overnight study by the consulting nurse fellow the impella position is stable. [...] Susannah Ornelas MD Internal Medicine, PGY-1 Cardiology, [facility] 08/01/24 7:13 AM CARDIOLOGY STAFF NOTE I [...] with him; questions answered. Krystal Parker MD, [facility] Staff Disease Case Manager Rn issuer * Krystal Parker MD - 07/31/2024 1:06 [...] P-level 6 at time of transfer to [facility]. CI initially 1.97, improved to 2.2 After impella. Received about 3 L of fluid during procedural course. Patient initially required norepinephrine 30, epinephrine 10, and vasopressin 0.04 for hemodynamic support, which was weaned upon arrival to [facility] to norepinephrine 20and levo 0.04 N - [...] PCP: Alexia Mtz APRN PCP phone number: [phone] Date of Admission: 07/29/2024 ( Hospital Day [...] 0057 07/29/24 1621 PHART 7.44 7.38 7.37 KUB2YBK 29* 34* 36 PO2ART 109* 141* 71* VRO2BYQ 19.4* 19.5* 20.4 VBG (Venous Blood Gas) Recent Labs 07/29/24 1401 PHVEN 7.30* PO2VEN 39 BPZ1LQQ 20.1* Mixed Venous Sat No results for input(s): J4WJYD9 in the last 168 hours. PA Catheter [...] 0057 07/29/24 1621 PHART 7.44 7.38 7.37 CDH1XNL 29* 34* 36 PO2ART 109* 141* 71* BJE4NOQ 19.4* 19.5* 20.4 VBG (Venous Blood Gas) Recent Labs 07/29/24 1401 PHVEN 7.30* PO2VEN 39 TGT9SPN 20.1* Mixed Venous Sat No results for input(s): A0KOEF0 in the last 168 hours. Microbiology: Microbiology Results (Last 30 days) Procedure Component Value Units Date/Time Blood culture [[id number]] Collected: 07/29/241607 Lab Status: Preliminary result Specimen: Blood, Venous Updated: 07/30/241700 Blood Culture No Growth at 18-24 hrs. Blood culture [[id number]] Collected: 07/29/241607 Lab Status: Preliminary result Specimen: Blood, Venous Updated: 07/30/241700 Blood Culture No Growth at 18-24 hrs. Imaging: Results for orders placed or performed during the hospital encounter of 07/29/24 XR Chest One View (Exam End: 07/29/2024 2:30 PM) Result Value WORKSTATION ID [id number] Impression 1. No pulmonary edema. 2. No pleural effusion. 3. No pneumothorax. Thank you for letting us participate in the care of this patient. If you are a health care provider and have any questions regarding this report, please contact the number below. For patients who have questions please contact the health post anesthesia care unit nurse that requested your imaging first. Electronically signed by: Chris Candelaria MD, [facility] ([phone]), at 07/29/2024 3:21 PM TTE ( 07/30/24) [...] to the overnight study by the consulting nurse fellow the impella position is stable. [...] work to optimize volume status while continuing bshsnqg-ryskbu-gjnoquxrhk therapies at this time. Obtain comprehensive TTE. [...] P-level 6 at time of transfer to [facility]. CI initially 1.97, improved to 2.2 After impella. Received about 3 L of fluid during procedural course. Patient initially required norepinephrine 30, epinephrine 10, and vasopressin 0.04 for hemodynamic support, which was weaned upon arrival to [facility] to norepinephrine 20and levo 0.04 N - [...] PCP: Yoel Artis APRN PCP phone number: [phone] Date of Admission: 07/29/2024 ( Hospital Day [...] Hour Events/Subjective: Yesterday: - Admitted to the [facility] - After his LHC, he demonstrated significant [...] 0057 07/29/24 1621 PHART 7.44 7.38 7.37 LHD9SJQ 29* 34* 36 PO2ART 109* 141* 71* BEZ5WJI 19.4* 19.5* 20.4 VBG (Venous Blood Gas) Recent Labs 07/29/24 1401 PHVEN 7.30* PO2VEN 39 UYO3LAA 20.1* Lactate ( Last 12 hours) 1.3 >> 1.2 Mixed Venous Sat No results for input(s): D2OAGR1 in the last 168 hours. PA Catheter [...] 0057 07/29/24 1621 PHART 7.44 7.38 7.37 KMM8LPJ 29* 34* 36 PO2ART 109* 141* 71* PRV5QBR 19.4* 19.5* 20.4 VBG (Venous Blood Gas) Recent Labs 07/29/24 1401 PHVEN 7.30* PO2VEN 39 TGG6PVZ 20.1* Mixed Venous Sat No results for input(s): Q1MPJS5 in the last 168 hours. Microbiology: Microbiology Results (Last 30 days) Procedure Component Value Units Date/Time Blood culture [[id number]] Collected: 07/29/24 1608 Lab Status: In process Specimen: Blood, Venous Updated: 07/29/24 162 Blood culture [[id number]] Collected: 07/29/24 1608 Lab Status: In process Specimen: Blood, Venous Updated: 07/29/24 1615 Imaging: Results for orders placed or performed during the hospital encounter of 07/29/24 XR Chest One View (Exam End: 07/29/2024 2:30 PM) Result Value WORKSTATION ID [id number] Impression 1. No pulmonary edema. 2. No pleural effusion. 3. No pneumothorax. Thank you for letting us participate in the care of this patient. If you are a health care provider and have any questions regarding this report, please contact the number below. For patients who have questions please contact the health post anesthesia care unit nurse that requested your imaging first. Electronically signed by: Chris Candelaria MD, [facility] ([phone]), at 07/29/2024 3:21 PM Medications Scheduled Meds: [...] [facility] for [facility] and [facility] demo nstrated 100% occlusion. No significant RCA, LMCA, or LCX disease. LOW placed in LAD with some residual distal disease meriting placement of overlapping distal stent. TTE showed apical akinesis and inferior hypokinesis with EF 20%. RHC showed elevated filling pressures. Impella placed and P-level 6 at time of transfer to [facility]. CI initially 1.97, improved to 2.2 After impella. Received about 3 L of fluid during procedural course. Patient initially required norepinephrine, epinephrine, and vasopressin for hemodynamic support, which was weaned upon arrival to [facility] to norepinephrine 20 and levo 0.04 (epinephrine [...] performed by Brandan Mcgovern MD [facility] ENDOSCOPY Significant Family History: Family History Problem [...] mouth. Past Week nitroGLYcerin (NITROLINGUAL) 400 mcg/spray [place], Non-Aerosol 1 spray to anus for [...] catheter and a 3.5 [address] [place] [address] [place] [address] 20 Mhz using Manual pullback. Imaging [...] atmospheres. A premounted 3.00 x 22 mm [place] (LOW) was deployed with a maximum inflation [...] atmospheres. A premounted 3.00 x 08 mm [place] (LOW) was deployed with a maximum inflation [...] limited study performed by a fellow consulting nurse to evaluate for cardiogenic shock with [...] to the overnight study by the consulting nurse fellow the impella position is stable. [...] PCP: Yoel Artis APRN PCP phone number: [phone] Date of Admission: 07/29/2024 ( Hospital Day [...] performed by Brandan Mcgovern MD [facility] ENDOSCOPY Family History Family History Problem Relation [...] Blood Gas) No results for input(s): PHART, CHX7RYW, PO2ART, YOP0APK, LACTATEVEN, EYO9PJH, PFRATIOART2 in the last 168 hours. VBG (Venous Blood Gas) Recent Labs 07/29/24 1401 PHVEN 7.30* PO2VEN 39 CXN2LWI 20.1* Mixed Venous Sat No results for input(s): S0DSXU2 in the last 168 hours. PA Catheter [...] Blood Gas) No results for input(s): PHART, PET2YGV, PO2ART, GYG9YFE, LACTATEVEN, RMW9YMV, PFRATIOART2 in the last 168 hours. VBG (Venous Blood Gas) Recent Labs 07/29/24 1401 PHVEN 7.30* PO2VEN 39 WHY3MCN 20.1* Mixed Venous Sat No results for input(s): E4CIAT4 in the last 168 hours. Microbiology: Microbiology [...] [facility]. Found to have 100% occlusion of LAD for which he underwent LOW to LAD.Otherwise no other significant vessel disease. Fahad is currently hemodynamically tenuous but improving upon admission to [facility], requiring hemodynamic support with norepinephrine and vasopressin at time of admission along with mechanical support with Impella device. Reassuringly, he demonstrates decreasing pressor requirements since admission to [facility], with epinephrine completely weaned. He does demonstrate [...] will obtain cultures to further investigate. Neuro #EIDSON - Awake, alert, interactive at time of [...] Bernardo Amos MD Internal Medicine, PGY-3 Cardiology, [facility] 07/29/24 3:14 PM Cardiology Attending Note I [...] MD, FACP, FACC Section of Cardiovascular Medicine [facility] Cook Italian Style Foodrib cloth knitter [facility] This patient meets or has met medical [...] to the planned procedure. Hand Hygiene: The certified alcohol counselor did perform hand hygiene prior to [...] ease. Good wave form. Ivan Hernandez MD Signal Person Associated attestation - Rolando Yeh MD - [...] Fahad was quite active prior to his OK. He had even started running (to help [...] No Patient is insured through: Primary Insurance: [facility] MANAGED MEDICARE Payor: [facility] MEDICARE / Plan: AARP [...] of Discharge: 08/04/2024 Gaby Wong RN, CM [phone] * Initial Assessments - Char Meza, OT [...] performed by Brandan Mcgovern MD [facility] ENDOSCOPY Social History: Patient lives with his . Home Setup: 2 NAOMI to a 1 level home. DME: none Baseline ADL/Mobility: Independent with ADLs and IADLs. Enjoys walking. able assist as needed. Precautions/Special Considerations: Full code. Risk for falls. Subjective: I have access to an [employer] weight gym. (Educated to wait for MD [...] evaluation only Total Minutes, Occupational Therapy: 14 (0302-4645 (evaluation)) 2017 OT Evaluation Code Rationale: Diagnosis [...] and measurable assessment of functional outcome. Pager: [phone] Char Meza OT 08/03/2024 Occupational Therapy Rehabilitation [...] (Interventions Implemented as Appropriate) Flowsheets (Taken 08/01/2024 6355) Outcome Summary: A+O, no pain. NSR. MAP [...] Procedure Note: Patient Name: Korey Montoya : [id number] MR#: [id number] Case Date: 07/31/2024 [employer] [employer]: Surgeons and Role: * Maldonado Luis MD - Primary * Quinten Charles PA - Physician Senior Commissions Analyst Preoperative diagnosis: shock, impella Postoperative diagnosis: * same * Procedure(s) performed: Impella removal form right PROCESS AUTOMATION ENGINEER Access: Right PROCESS AUTOMATION ENGINEER A time-out was conducted prior to [...] surrogate would be surrogate decision maker per [place] surrogate decision making law. (Only good for 180 days) Any patient receiving care in [place] must abide by [place] law. The hierarchy for surrogate decision making [...] The agent with financial power of civil rights attorney or a conservator appointed in accordance [...] In the past 12 months has the [place] [employer] gas, oil, or water [employer] threatened to shut off services in your [...] it) Home Address confirmed as: Mailing Address: [facility] [address] [address] Physical Address: [address] [place], [place] Social & Family Supports: All names [...] points: Addiction likely Health/Prescription Coverage: Primary Insurance: [employer] MANAGED MEDICARE Payor: [employer] MEDICARE / Plan: [facility] COMPLETE / Product Type: *No Product type* / Secondary Insurance: N/A ; Prescription Coverage: Yes Preferred Pharmacy: [address] [address] [place] Status: Patient is a : No Primary Care Provider confirmed: Alexia Mtz, AGENCY MANAGER [phone] Patient/Caregiver Goals of Treatment: return home Potential [...] 6:25 PM EST 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 CXR and EKG completed. Impella [...] Procedure Note: Patient Name: Korey Montoya : [id number] MR#: [id number] Case Date: 07/29/2024 [place]: Surgeons and Role: * Vahe Marvin MD - Primary * Susannah Watts PA - Physician Senior Commissions Analyst Preoperative diagnosis: STEMI Postoperative diagnosis: * STEMI, LAD Artery * * Cardiogenic Shock * Procedure(s) performed: [facility] Coronary angiogram Stent insertion coronary IVUS coronary Venous line insert C [place] Colette Catheter Vascular closure device Ventricular assist [...] x 22 mm to 14 deonna JEISON Gove with LIZ 3 flow. Residual distal disease at distal stent, overlapping distal stent was inserted with 3.0 x 8 mm [place] Gove. Systolic's in the 80's sustained. Patient re [...] 9:30 AM EST Appointment Non[place] [address] Mushtaq Murphy APRN 10/31/2024 11:00 AM EST Office Visit Cardiology at [address] [address] Mushtaq Murphy, FREDRICK Scheduled Orders Name Type [...] 0.10 x10(3)/mc L 08/04/2024 6:39 AM EST [facility] Immature Gran % 0.3 % 6:39 AM [facility] Immature Gran Absolute <0.04 0.00 - 0.04 x10(3)/mc L 08/04/2024 6:39 AM [facility] Blood VENOUS BLOOD SPECIMEN / Unknown Venipuncture / Unknown 08/04/2024 6:08 AM EST 08/04/2024 6:19 AM EST Bridgette Stauffer MD HEMATOLOGY ORDERABLE S Performing Organization Address City/[facility]/ZIP Co de Phone Number [facility] [place] [address] * Magnesium (08/04/2024 6:08 AM EST) Magnesium 0.85 0.69 - 1.07 mMol/L 08/04/2024 7:07 AM [facility] Blood VENOUS BLOOD SPECIMEN / Unknown Venipuncture / Unknown 08/04/2024 6:08 AM EST 08/04/2024 6:19 AM EST Bridgette Stauffer MD CHEMISTRY ORDERABLES [facility] [place] [address] * Basic Metabolic Panel (08/04/2024 6:08 AM [...] CHEMISTRY ORDERABLES [facility] [place] [address] * (ABNORMAL) CBC (with Diff) (08/03/2024 5:16 [...] ORDERABLE S [facility] [place] [address] * Magnesium (08/03/2024 5:16 AM EST) Magnesium 0.89 0.69 - 1.07 mMol/L 08/03/2024 5:56 AM [facility] Blood VENOUS BLOOD SPECIMEN / Unknown Venipuncture / Unknown 08/03/2024 5:16 AM EST 08/03/2024 5:23 AM EST Bridgette Stauffer MD CHEMISTRY ORDERABLES [facility] [place] [address] * (ABNORMAL) Basic Metabolic Panel (08/03/2024 5:16 [...] Stauffer MD CHEMISTRY ORDERABLES Performing Organization Address [facility]/ZIP Co de Phone Number [facility] [place] [place] [address] * POC, GLUCOSE (08/02/2024 7:47 AM EST) [facility] Glucometer, POC 89 65 - 199 mg/dL 08/02/2024 7:47 AM EST [facility] Comment:Supplemental ranges: <140 mg/dL before meals <180 mg/dL all other times of the day. Blood CAPILLARY BLOOD / Unknown 08/02/2024 7:47 AM EST 08/02/2024 7:47 AM EST Krystal Parker MD POINT OF CARE TEST O RDERABLES Performing Organization Address [facility] Co de Phone Number [facility] [place] [place] [address] * (ABNORMAL) CBC (with Diff) (08/02/2024 4:20 AM EST) White Blood Cell 8.51 4.00 - 9.50 x10(3)/mc L 08/02/2024 4:50 AM EST [facility] Red Blood Cell 4.41(L) 4.58 - 5.54 x10(6)/mc L 08/02/2024 4:50 AM EST [facility] Hemoglobin 12.2(L) 13.7 - 16.5 g/dL 08/02/2024 4:50 AM EST [facility] Hematocrit 35.8(L) 40.5 - 48.5 % 08/02/2024 4:50 AM EST [facility] Mean Cell Volume 81.2(L) [...] 0.90 x10(3)/mc L 08/02/2024 4:50 AM EST [facility] Eos % 1.4 % 08/02/2024 4:50 AM EST [facility] Eos Absolute 0.12 0.00 [...] ORDERABLE S [facility] [place] [place] [address] * Magnesium (08/02/2024 4:20 AM EST) Magnesium 0.79 0.69 - 1.07 mMol/L 08/02/2024 5:06 AM EST [facility] Blood VENOUS BLOOD SPECIMEN / Unknown Venipuncture / Unknown 08/02/2024 4:20 AM EST 08/02/2024 4:37 AM EST Bridgette Stauffer MD CHEMISTRY ORDERABLES [facility] [place] [place] [address] * (ABNORMAL) Basic Metabolic Panel (08/02/2024 4:20 [...] Eh MD CHEMISTRY ORDERABLES Performing Organization Address [facility] Co de Phone Number [facility] [place] [address] * Potassium (08/01/2024 8:39 PM EST) Potassium 4.0 3.5 - 5.0 mMol/L 08/01/2024 9:21 PM EST [facility] Blood VENOUS BLOOD SPECIMEN / Unknown Venipuncture / Unknown 08/01/2024 8:39 PM EST 08/01/2024 8:51 PM EST Jay Silverio MD CHEMISTRY ORDERABL ES Performing Organization Address [facility] Number [facility] [place] [address] * POC, GLUCOSE (08/01/2024 8:35 PM EST) Glucometer, POC 112 65 - 199 mg/dL 08/01/2024 8:36 PM EST [facility] Comment:Supplemental ranges: <140 mg/dL before meals <180 mg/dL all other times of the day. Blood CAPILLARY BLOOD / Unknown 08/01/2024 8:35 PM EST 08/01/2024 8:36 PM EST Krystal Parker MD POINT OF CARE TEST O RDERABLES Performing Organization Address [facility] Co de Phone Number [facility] [place] [address] * POC, GLUCOSE (08/01/2024 4:55 PM EST) Glucometer, POC 99 65 - 199 mg/dL 08/01/2024 4:56 PM EST [facility] Comment:Supplemental ranges: <140 mg/dL before meals <180 mg/dL all other times of the day. Blood CAPILLARY BLOOD / Unknown 08/01/2024 4:55 PM EST 08/01/2024 4:56 PM EST Krystal Parker MD POINT OF CARE TEST O RDERABLES Performing Organization Address City/[facility]/ZIP Co de Phone Number [facility] [place] [address] * POC, GLUCOSE (08/01/2024 12:42 PM EST) Glucometer, POC 130 65 - 199 mg/dL 08/01/2024 12:43 PM EST [facility] Comment:Supplemental ranges: <140 mg/dL before meals <180 mg/dL all other times of the day. Blood CAPILLARY BLOOD / Unknown 08/01/2024 12:42 PM EST 08/01/2024 12:43 PM EST Krystal Parker MD POINT OF CARE TEST O JOSH Performing Organization Address [facility] Co de Phone Number [facility] [place] [place] [address] * (ABNORMAL) Cooximetry, POC (08/01/2024 10:45 AM [...] CARE TEST O RDERABLES Performing Organization Address [facility] Co de Phone Number [facility] [place] [place] [address] * Potassium (08/01/2024 8:20 AM EST) Potassium 4.0 3.5 - 5.0 mMol/L 08/01/2024 10:17 AM EST [facility] Blood ARTERIAL BLOOD / Unknown Venipuncture / Unknown 08/01/2024 8:20 AM EST 08/01/2024 8:30 AM EST Jay Silverio MD CHEMISTRY ORDERABL ES Performing Organization Address [facility] Co de Phone Number [facility] [place] [place] [address] * POC, GLUCOSE (08/01/2024 7:44 AM EST) [facility] Glucometer, POC 86 65 - 199 mg/dL 08/01/2024 7:44 AM EST [facility] Comment:Supplemental ranges: <140 mg/dL before meals <180 mg/dL all other times of the day. Blood CAPILLARY BLOOD / Unknown 08/01/2024 7:44 AM EST 08/01/2024 7:44 AM EST Krystal Parker MD POINT OF CARE TEST O RDKAY Performing Organization Address [facility] Co de Phone Number [facility] [place] [place] [address] * (ABNORMAL) CBC (with Diff) (08/01/2024 4:18 [...] ORDERABLE S [facility] [place] [place] [address] * Magnesium (08/01/2024 4:18 AM EST) Magnesium 0.74 0.69 - 1.07 mMol/L 08/01/2024 5:00 AM [facility] Blood VENOUS BLOOD SPECIMEN / Unknown Venipuncture / Unknown 08/01/2024 4:18 AM EST 08/01/2024 4:29 AM EST Bridgette Stauffer MD CHEMISTRY ORDERABLES [facility] [place] [place] [address] * (ABNORMAL) Basic Metabolic Panel (08/01/2024 4:18 [...] Stauffer MD CHEMISTRY ORDERABLES Performing Organization Address [facility] Co de Phone Number [facility] [place] [address] * POC, GLUCOSE (07/31/2024 8:41 PM EST) [facility] Signature Glucometer, POC 73 65 - 199 mg/dL 07/31/2024 8:41 PM EST [facility] Comment:Supplemental ranges: <140 mg/dL before meals <180 mg/dL all other times of the day. Blood CAPILLARY BLOOD / Unknown 07/31/2024 8:41 PM EST 07/31/2024 8:41 PM EST Krystal Parker MD POINT OF CARE TEST O RDERABLES Performing Organization Address [facility] de Phone Number [facility] [place] [address] * CARDIAC CATHETERIZATION (07/31/2024 5:53 PM EST) Anatomical Region Laterality Modality Other Narrative 08/01/2024 12:37 PM EST ?[facility] ? Cardiac Catheterization/Intervention Report ? Patient Name: Korey Montoya Kyrie. ? Procedure Date: 07/31/2024 ? A #: [id number] ? Primary Physician: Janelle, Maldonado T ? Case #: [id number] ? File Name: [id number] ? Catheterization Order Number: [id number] ? [facility] ? Final Report [place], [place] ? Patient Name: ? Korey P. Montoya ?ID#: ?[id number] ? : ?1950 ? Procedure Date: ? July 31, 2024 ?Case #: ? [id number] ? Room: ? 1 ? Case Physician: [...] ? Comments: ?Impella removed from the right PROCESS AUTOMATION ENGINEER with deployment of Perclose and ?Angioseal. [...] Procedure Note Maldonado Luis MD - 08/01/2024 [facility] Cardiac Catheterization/Intervention Report Patient Name: Korey MontoyaToby Procedure Date: 07/31/2024 A #: [id number] Primary Physician: Maldonado Luis Case #: [id number] File Name: [id number] Catheterization Order Number: [id number] [facility] FinalReport [place], [place] Patient Name: Korey Montoya ID#:[id number] :1950 Procedure Date: July 31, 2024 Case [...] was designated as ASA Class IV. The [facility] clinical frailtyscale is 4: Vulnerable. Diagnostic [...] procedures. Comments: Impella removed from the right PROCESS AUTOMATION ENGINEER with deployment of Perclose and Angioseal. [...] * POC, GLUCOSE (07/31/2024 11:04 AM EST) [facility] Glucometer, POC 82 65 - 199 mg/dL 07/31/2024 11:04 AM EST [facility] Comment:Supplemental ranges: <140 mg/dL before meals <180 mg/dL all other times of the day. Blood CAPILLARY BLOOD / Unknown 07/31/2024 11:04 AM EST 07/31/2024 11:04 AM EST Krystal Parker MD POINT OF CARE TEST O RDERABLES [facility] [place] [place] [address] * (ABNORMAL) Blood Gas, Arterial POC (07/31/2024 8:29 AM EST) pH, Arterial 7.48(H) 7.35 - 7.45 07/31/2024 8:30 AM EST [facility] PCO2, Arterial 29(L) 35 - 45 mmHg 07/31/2024 8:30 AM EST [facility] PO2, Arterial 71(L) 85 - 104 mmHg 07/31/2024 8:30 AM EST [facility] Bicarbonate, Arterial 20.6 20.0 - 26.0 mmol/L 07/31/2024 8:30 AM EST [facility] Base Excess, Arterial -3.0 -3.0 - 3.0 mmol/L 07/31/2024 8:30 AM EST [facility] Hemoglobin, Arterial 12.3(L) 13.7 [...] CARE TEST O RDERABLES Performing Organization Address City/[facility]/ZIP Co de Phone Number [facility] [place] [address] * POC, GLUCOSE (07/31/2024 7:47 AM EST) [facility] Glucometer, POC 82 65 - 199 mg/dL 07/31/2024 7:53 AM [facility] Comment:Supplemental ranges: <140 mg/dL before meals <180 mg/dL all other times of the day. Blood CAPILLARY BLOOD / Unknown 07/31/2024 7:47 AM EST 07/31/2024 7:53 AM EST Krystal Parker MD POINT OF CARE TEST O PEYTONERASHAY Performing Organization Address [facility] Co de Phone Number [facility] [place] [place] [address] * (ABNORMAL) CBC (with Diff) (07/31/2024 1:08 AM EST) [facility] White Blood Cell 10.25(H) 4.00 [...] % 0.3 % 07/31/2024 1:28 AM EST [facility] Baso Absolute <0.04 0.00 - 0.10 x10(3)/mc L 07/31/2024 1:28 AM [facility] Immature Gran % 0.2 % 1:28 AM [facility] Immature Gran Absolute <0.04 0.00 - 0.04 x10(3)/mc L 07/31/2024 1:28 AM EST [facility] Blood VENOUS BLOOD SPECIMEN / Unknown Venipuncture / Unknown 07/31/2024 1:08 AM EST 07/31/2024 1:18 AM EST Bridgette Stauffer MD HEMATOLOGY ORDERABLE S Performing Organization Address City/[facility]/ZIP Co de Phone Number [facility] [place] [address] * Magnesium (07/31/2024 1:08 AM EST) Magnesium 0.89 0.69 - 1.07 mMol/L 07/31/2024 1:46 AM [facility] Blood VENOUS BLOOD SPECIMEN / Unknown Venipuncture / Unknown 07/31/2024 1:08 AM EST 07/31/2024 1:18 AM EST Bridgette Stauffer MD CHEMISTRY ORDERABLES [facility] [place] [address] * (ABNORMAL) Basic Metabolic Panel (07/31/2024 1:08 AM EST) Glucose 97 65 - 199 mg/dL 07/31/2024 1:46 AM [facility] Comment:Glucose Concentratio n >=200 mg/dL plus symptoms is consistent with Diabetes Mellitus. Blood Urea Nitrogen 11 10 - 20 mg/dL 07/31/2024 1:46 AM EST [facility] Creatinine 0.96 0.80 - 1.50 mg/dL 07/31/2024 1:46 AM EST [facility] Sodium 140 135 - 145 mMol/L 07/31/2024 1:46 AM EST [facility] Potassium 4.1 3.5 - 5.0 mMol/L 07/31/2024 1:46 AM [facility] Chloride 110(H) 98 - 107 mMol/L 07/31/2024 1:46 AM EST [facility] Carbon Dioxide 24 22 - 31 mMol/L 07/31/2024 1:46 AM EST [facility] Anion Gap 6 5 [...] CHEMISTRY ORDERABLES [facility] [place] [address] * (ABNORMAL) Hepatic Function Panel (07/31/2024 1:08 [...] AM EST Krystal Parker MD CHEMISTRY ORDERABLES [facility] [place] [address] * POC, GLUCOSE (07/30/2024 8:03 PM EST) [...] O RDERABLES [facility] [place] [address] * Potassium (07/30/2024 8:03 PM EST) Potassium 3.8 3.5 - 5.0 mMol/L 07/30/2024 9:13 PM EST [facility] Blood VENOUS BLOOD SPECIMEN / Unknown Venipuncture / Unknown 07/30/2024 8:03 PM EST 07/30/2024 8:22 PM EST Jay Silverio MD CHEMISTRY ORDERABL ES [facility] [place] [place] [address] * POC, GLUCOSE (07/30/2024 6:23 PM EST) Glucometer, POC 93 65 - 199 mg/dL 07/30/2024 6:24 PM EST [facility] Comment:Supplemental ranges: <140 mg/dL before meals <180 mg/dL all other times of the day. Blood CAPILLARY BLOOD / Unknown 07/30/2024 6:23 PM EST 07/30/2024 6:24 PM EST Krystal Parker MD POINT OF CARE TEST O RDERABLES Performing Organization Address City/[facility]/ZIP Co de Phone Number [facility] [place] [address] * POC, GLUCOSE (07/30/2024 5:08 PM EST) [...] O RDERABLES [facility] [place] [address] * (ABNORMAL) Phosphorus (07/30/2024 3:08 PM EST) [facility] Phosphorus 2.1(L) 2.5 - 4.5 mg/dL 07/30/2024 3:58 PM EST [facility] Blood VENOUS BLOOD SPECIMEN / Unknown Venipuncture / Unknown 07/30/2024 3:08 PM EST 07/30/2024 3:12 PM EST Jay Silverio MD CHEMISTRY ORDERABL ES Performing Organization Address City/[facility]/ZIP Co de Phone Number [facility] [place] [address] * Magnesium (07/30/2024 3:08 PM EST) [facility] Magnesium 0.90 0.69 - 1.07 mMol/L 07/30/2024 3:58 PM EST [facility] Blood VENOUS BLOOD SPECIMEN / Unknown Venipuncture / Unknown 07/30/2024 3:08 PM EST 07/30/2024 3:12 PM EST Jay Silverio MD CHEMISTRY ORDERABL ES Performing Organization Address City/[facility]/ZIP Co de Phone Number [facility] [place] [address] * (ABNORMAL) Basic Metabolic Panel (07/30/2024 3:08 PM EST) [facility] Glucose 105 65 - 199 mg/dL 07/30/2024 4:17 PM EST [facility] Comment:Glucose Concentratio n >=200 mg/dL plus symptoms is consistent with Diabetes Mellitus. Blood Urea Nitrogen 13 10 - 20 mg/dL 07/30/2024 4:17 PM EST [facility] Creatinine 1.01 0.80 - 1.50 mg/dL 07/30/2024 4:17 PM EST [facility] Sodium 141 135 - 145 mMol/L 07/30/2024 4:17 PM EST [facility] Potassium 3.4(L) 3.5 - 5.0 mMol/L 07/30/2024 4:17 PM EST [facility] Chloride 109(H) 98 - [...] EST Jay Silverio MD CHEMISTRY ORDERABL ES [facility] [place] [address] * ECHO LMTD W CONTRAST W LMTD SPEC DOPP COLOR DOPP (07/30/2024 11:42 AM EST) Anatomical Region Laterality Modality Cardiac Other 07/30/2024 10:2 2 AM EST Narrative 07/30/2024 12:[address] [address] ? Echocardiogram Report Name: KOREY MONTOYA ? Study Date: 07/30/2024 10:22 AMBP: 124/66 mmHg : 1950 ? Height: 168 cm ? Account: [id number] Age: 74 yrs ? Weight: 65 kg Gender: Male ?BSA: 1.7 m2 Ordering Physician: Jay Silverio MD Referring Physician: CHAPARRO FERRERA Performed By: OMERO Millan Reason For Study: ST elevation myocardial infarction involving left anterior descending (LAD) coronary artery Interpreting Fellow: Ivan Hernandez. Exam Location: [facility]. Interpretation Summary Left ventricle is severely [...] to the overnight study by the consulting nurse fellow the impella position is stable. 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 Procedure Limited - 18012. Image enhancement Definity was used for both [...] Note Kathleen Banda MD - 07/30/2024 [address] [place] [address] Echocardiogram Report Name: MONTOYAKOREY Study Date: 0:22 AMBP: 124/66 mmHg : 1950 Height: 168 cm Account: [id number] Age: 74 yrs Weight: 65 kg Gender: Male BSA: 1.7 m2 Ordering Physician: Jay Silverio MD Referring Physician: CHAPARRO FERRERA Performed By: OMERO Millan Reason For Study: ST elevation myocardial infarction involving leftanterior descending (LAD) coronary artery Interpreting Fellow: Ivan Hernandez. Exam Location: [facility]. Interpretation Summary Left ventricle is severely [...] to the overnight study by the consulting nurse fellow the impella positionis stable. The global left ventricular systolic function has improvedpredominantly via recruitment outside the LAD territory which remains akinetic. Procedure Limited - 14299. Image enhancement Definity was used for both [...] * POC, GLUCOSE (07/30/2024 11:17 AM EST) [facility] Glucometer, POC 97 65 - 199 mg/dL 07/30/2024 11:17 AM [facility] Comment:Supplemental ranges: <140 mg/dL before meals <180 mg/dL all other times of the day. Blood CAPILLARY BLOOD / Unknown 07/30/2024 11:17 AM EST 07/30/2024 11:17 AM EST Jay Silverio MD POINT OF CARE TEST ORDERABLES [facility] [place] [address] * (ABNORMAL) Blood Gas, Arterial POC (07/30/2024 8:16 AM EST) [facility] Signature pH, Arterial 7.44 7.35 - [...] TEST ORDERABLES [facility] [place] [place] [address] * (ABNORMAL) Troponin - Single (07/30/2024 8:09 [...] troponin value can be found in the [facility] Laboratory Test Catalog Troponin - [email or web address]/catalogs/565/files/64163 Reference: Fourth Barling Definition of Myocardial Infarction. Journal of the [employer] College [employer] 2018;72:7496-5149 Blood VENOUS BLOOD SPECIMEN / Unknown Venipuncture / Unknown 07/30/2024 8:09 AM EST 07/30/2024 8:26 AM EST Jay Silverio MD CHEMISTRY ORDERABL ES [facility] [place] [place] [address] * POC, GLUCOSE (07/30/2024 7:40 AM EST) Glucometer, POC 111 65 - 199 mg/dL 07/30/2024 7:40 AM [facility] Comment:Supplemental ranges: <140 mg/dL before meals <180 mg/dL all other times of the day. Blood CAPILLARY BLOOD / Unknown 07/30/2024 7:40 AM EST 07/30/2024 7:40 AM EST Jay Silverio MD POINT OF CARE TEST ORDERABLES Performing Organization Address City/State/[facility] Co de Phone Number [facility] [place] [address] * (ABNORMAL) CBC (with Diff) (07/30/2024 2:11 [...] 0.04 x10(3)/mc L 07/30/2024 2:33 AM EST [facility] Blood VENOUS BLOOD SPECIMEN / Unknown Venipuncture / Unknown 07/30/2024 2:11 AM EST 07/30/2024 2:22 AM EST Bridgette Stauffer MD HEMATOLOGY ORDERABLE S Performing Organization Address [facility] Co de Phone Number [facility] [place] [address] * Magnesium (07/30/2024 2:11 AM EST) Magnesium 1.01 0.69 - 1.07 mMol/L 07/30/2024 2:51 AM [facility] Blood VENOUS BLOOD SPECIMEN / Unknown Venipuncture / Unknown 07/30/2024 2:11 AM EST 07/30/2024 2:22 AM EST Bridgette Stauffer MD CHEMISTRY ORDERABLES Performing Organization Address [facility] Co de Phone Number [facility] [place] [place] [address] * (ABNORMAL) Basic Metabolic Panel (07/30/2024 2:11 AM EST) Glucose 190 65 - 199 mg/dL 07/30/2024 2:51 AM [facility] Comment:Glucose Concentratio n >=200 mg/dL plus symptoms is consistent with Diabetes Mellitus. Blood Urea Nitrogen 15 10 - 20 mg/dL 07/30/2024 2:51 AM EST [facility] Creatinine 0.88 0.80 - 1.50 mg/dL 07/30/2024 2:51 AM [facility] Sodium 135 135 - 145 mMol/L 07/30/2024 2:51 AM [facility] Potassium 4.9 3.5 - 5.0 mMol/L 07/30/2024 2:51 AM EST [facility] Chloride 105 98 - 107 mMol/L 07/30/2024 2:51 AM EST [facility] Carbon Dioxide 19(L) 22 - 31 mMol/L 07/30/2024 2:51 AM EST [facility] [...] CHEMISTRY ORDERABLES [facility] [place] [address] * (ABNORMAL) Cooximetry, POC (07/30/2024 1:00 AM [...] [facility] Co de Phone Number [facility] [place] [address] * (ABNORMAL) Blood Gas, Arterial POC (07/30/2024 [...] TEST ORDERABLES [facility] [place] [address] * (ABNORMAL) Troponin - Single (07/29/2024 10:31 PM EST) Troponin-T, High Sensitivity >10,000(H ) <=22 ng/L 07/29/2024 11:03 PM EST [facility] [...] troponin value can be found in the [facility] Laboratory Test Catalog Troponin - [email or web address]/catalogs/565/files/01777 Reference: Fourth Barling Definition of Myocardial Infarction. Journal of the [employer] College of Cardiology 2018;72:7537-1911 Blood VENOUS BLOOD SPECIMEN / Unknown Venipuncture / Unknown 07/29/2024 10:31 PM EST 07/29/2024 10:36 PM EST Yrn Ward MD CHEMISTRY ORDERABL ES Performing Organization Address City/[facility]/ZIP Co de Phone Number [facility] [place] [address] * Potassium (07/29/2024 8:11 PM EST) Potassium 4.1 3.5 - 5.0 mMol/L 07/29/2024 8:52 PM EST [facility] Blood VENOUS BLOOD SPECIMEN / Unknown Venipuncture / Unknown 07/29/2024 8:11 PM EST 07/29/2024 8:16 PM EST Jay Silverio MD CHEMISTRY ORDERABL ES [facility] [place] [place] [address] * (ABNORMAL) Troponin - Single (07/29/2024 8:11 PM EST) Pathologist [facility] Troponin-T, High [...] troponin value can be found in the [facility] Laboratory Test Catalog Troponin - [email or web address]/catalogs/565/files/28759 Reference: Fourth Barling Definition of Myocardial Infarction. Journal of the [employer] College of Cardiology 2018;72:9139-5392 Blood VENOUS BLOOD SPECIMEN / Unknown Venipuncture / Unknown 07/29/2024 8:11 PM EST 07/29/2024 8:16 PM EST Jay Silverio MD CHEMISTRY ORDERABL ES [facility] [place] [place] [address] * (ABNORMAL) Phosphorus (07/29/2024 8:11 PM EST) Pathologist [facility] Phosphorus 2.1(L) 2.5 - 4.5 mg/dL 07/29/2024 8:52 PM EST [facility] Blood VENOUS BLOOD SPECIMEN / Unknown Venipuncture / Unknown 07/29/2024 8:11 PM EST 07/29/2024 8:16 PM EST Jay Silverio MD CHEMISTRY ORDERABL ES Performing Organization Address [facility] Co de Phone Number [facility] [place] [address] * POC, GLUCOSE (07/29/2024 8:09 PM EST) Glucometer, POC 142 65 - 199 mg/dL 07/29/2024 8:09 PM EST [facility] Comment:Supplemental ranges: <140 mg/dL before meals <180 mg/dL all other times of the day. Blood CAPILLARY BLOOD / Unknown 07/29/2024 8:09 PM EST 07/29/2024 8:09 PM EST Jay Silverio MD POINT OF CARE TEST ORDERABLES Performing Organization Address [facility] Co de Phone Number [facility] [place] [place] [address] * ABORH RECHECK (07/29/2024 6:43 PM EST) ABORH Recheck AB POSITIVE 07/29/2024 10:13 PM EST [facility] Blood VENOUS BLOOD SPECIMEN / Unknown Venipuncture / Unknown 07/29/2024 6:43 PM EST 07/29/2024 7:15 PM EST Jay Silverio MD BLOOD BANK LAB ORD ERABLES Performing Organization Address City/[facility] Co de Phone Number [facility] [place] [address] * POC, GLUCOSE (07/29/2024 5:57 PM EST) Glucometer, POC 166 65 - 199 mg/dL 07/29/2024 5:57 PM EST [facility] Comment:Supplemental ranges: <140 mg/dL before meals <180 mg/dL all other times of the day. Blood CAPILLARY BLOOD / Unknown 07/29/2024 5:57 PM EST 07/29/2024 5:57 PM EST Jay Silverio MD POINT OF CARE TEST ORDERABLES [facility] [place] [address] * Type and screen ([facility]) (07/29/2024 5:56 PM EST) [facility] ABORH Type AB POSITIVE 07/29/2024 9:44 PM EST [facility] PATIENT HISTORY Not Found 07/29/2024 9:44 PM EST [facility] Expires at [id number] on: 08/01/2024 07/29/2024 9:44 PM EST [facility] ANTIBODY SCREEN AUTOMATED Negative 07/29/2024 9:44 PM EST [facility] T&S only valid at [facility] 07/29/2024 9:44 PM EST [facility] Blood VENOUS BLOOD SPECIMEN / Unknown Venipuncture / Unknown 07/29/2024 5:56 PM EST 07/29/2024 6:07 PM EST Narrative [facility] - 07/29/2024 9:44 PM EST This Type and Screen result is only valid at the [facility] Jay Silverio MD BLOOD BANK LAB ORD ERABLES Performing Organization Address City/[facility]/ZIP Co de Phone Number [facility] [place] [address] * (ABNORMAL) Troponin - Single (07/29/2024 4:52 PM EST) [facility] Troponin-T, High Sensitivity >10,000(H ) [...] troponin value can be found in the [facility] Laboratory Test Catalog Troponin - [email or web address]/catalogs/565/files/[email or web address] Reference: Fourth Barling Definition of Myocardial Infarction. Journal of the [place] College of Cardiology 2018;72:1521-4000 Blood VENOUS BLOOD SPECIMEN / Unknown Venipuncture / Unknown 07/29/2024 4:52 PM EST 07/29/2024 4:57 PM EST Jay Silverio MD CHEMISTRY ORDERABL ES [facility] [place] [address] * EKG 12 Lead (07/29/2024 4:21 PM EST) Ventricular rate 72 BPM MUSE SYSTEM Atrial Rate 72 BPM MUSE SYSTEM P-R Interval 168 ms MUSE SYSTEM QRS Duration 82 ms MUSE SYSTEM Q-T Interval 392 ms MUSE SYSTEM QTC Calculated (Bezet) 429 ms MUSE SYSTEM Calculated P [place] 71 degrees MUSE SYSTEM Calculated R [place] 77 degrees MUSE SYSTEM Calculated T [place] 28 degrees MUSE SYSTEM INTERPRETATION Sinus rhythm with Premature supraventricular complexes and Occasional Premature ventricular complexes Low voltage QRS 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) Lateral injury pattern ACUTE OK / STEMI Abnormal ECG When compared with [...] TEST ORDERABLES [facility] [place] [address] * POC, GLUCOSE (07/29/2024 4:19 PM EST) Glucometer, POC 185 65 - 199 mg/dL 07/29/2024 4:19 PM [facility] Comment:Supplemental ranges: <140 mg/dL before meals <180 mg/dL all other times of the day. Blood CAPILLARY BLOOD / Unknown 07/29/2024 4:19 PM EST 07/29/2024 4:19 PM EST Jay Silverio MD POINT OF CARE TEST ORDERABLES [facility] [place] [address] * Blood culture (07/29/2024 4:08 PM EST) Blood Culture No growth at 120 hours 08/03/2024 5:01 PM EST [facility] Blood VENOUS BLOOD SPECIMEN / Unknown Venipuncture / Unknown 07/29/2024 4:08 PM EST 07/29/2024 4:15 PM EST Jay Silverio MD MICROBIOLOGY - BLO OD ORDERABLES Performing Organization Address [facility] Co de Phone Number [facility] [place] [address] * Blood culture (07/29/2024 4:08 PM EST) Blood Culture No growth at 120 hours 08/03/2024 5:01 PM EST [facility] Blood VENOUS BLOOD SPECIMEN / Unknown Venipuncture / Unknown 07/29/2024 4:08 PM EST 07/29/2024 4:26 PM EST Jay Silverio MD MICROBIOLOGY - BLO OD ORDERABLES Performing Organization Address [facility] de Phone Number [facility] [place] [address] * XR Chest One View (07/29/2024 2:30 PM EST) WORKSTATION ID [id number] DH RAD Anatomical Region Laterality Modality Chest [...] have questions please contact the health post anesthesia care unit nurse that requested your imaging first. ? Electronically signed by: Chris Candelaria MD, [facility] ([phone]), at 07/29/2024 3:21 PM Narrative 07/29/2024 3:21 [...] who have questions please contactthe health post anesthesia care unit nurse that requested your imaging first. Electronically signed by: Chris Candelaria MD, [facility]([phone]), at 07/29/2024 3:21 PM Vahe Marvin MD IMG DX ORDERABLES * (ABNORMAL) APTT (07/29/2024 2:03 PM EST) Partial Thromboplastin Time >160(HHH) 25 - 37 sec 07/29/2024 2:56 PM EST [facility] Blood VENOUS BLOOD SPECIMEN / Unknown Venipuncture / Unknown 07/29/2024 2:03 PM EST 07/29/2024 2:13 PM EST Vahe Marvin MD HEMATOLOGY ORDERABLE S [facility] [place] [address] * (ABNORMAL) Prothrombin Time (07/29/2024 2:03 PM EST) [facility] Prothrombin Time 14.2(H) 9.4 - [...] ORDERABLE S [facility] [place] [address] * CRP, acute inflammation (07/29/2024 2:03 PM EST) Pathologist [facility] C-Reactive Protein <3.0 <=4.9 mg/L 07/29/2024 2:52 PM EST [facility] Blood VENOUS BLOOD SPECIMEN / Unknown Venipuncture / Unknown 07/29/2024 2:03 PM EST 07/29/2024 2:14 PM EST Vahe Marvin MD CHEMISTRY ORDERABLES [facility] [place] [address] * Lipid Panel (Reflex Direct LDL) (07/29/2024 [...] mg/dL LDL Cholesterol 64 mg/dL 2:52 PM [facility] Comment: [...] 2:03 PM EST 07/29/2024 2:14 PM EST [facility] - 07/29/2024 2:52 PM [...] CHEMISTRY ORDERABLES [facility] [place] [address] * TSH [place] (07/29/2024 2:03 PM EST) Pathologist [facility] Thyroid Stimulating Hormone 0.70 0.27 - 4.20 mcIU/mL 07/29/2024 2:52 PM EST [facility] Blood VENOUS BLOOD SPECIMEN / Unknown Venipuncture / Unknown 07/29/2024 2:03 PM EST 07/29/2024 2:14 PM EST Vahe Marvin MD CHEMISTRY ORDERABLES Performing Organization Address City/[facility] Co de Phone Number [facility] [place] [address] * Hemoglobin A1c (07/29/2024 2:03 PM EST) [...] PM EST 07/29/2024 2:14 PM EST Narrative [facility] - 07/29/2024 2:41 PM EST Estimated average glucose (eAG) is calculated from the equation described in: Quinten ALVES, Rikki J, Reno R, et al. ??Translating the A1C assay into estimated average glucose values. ??Diabetes Care 2008:31(8):7711-1785. Additional resources are available on the ADA website (diabetes.org). Vahe Marvin MD CHEMISTRY ORDERABLES [facility] [place] [address] * (ABNORMAL) CBC (with Diff) (07/29/2024 2:03 [...] 0.04 x10(3)/mc L 07/29/2024 2:18 PM EST [facility] Blood VENOUS BLOOD SPECIMEN / Unknown Venipuncture / Unknown 07/29/2024 2:03 PM EST 07/29/2024 2:13 PM EST Vahe Marvin MD HEMATOLOGY ORDERABLE S [facility] [place] [address] * Phosphorus (07/29/2024 2:03 PM EST) Phosphorus 2.5 2.5 - 4.5 mg/dL 07/29/2024 2:52 PM EST [facility] Blood VENOUS BLOOD SPECIMEN / Unknown Venipuncture / Unknown 07/29/2024 2:03 PM EST 07/29/2024 2:14 PM EST Vahe Marvin MD CHEMISTRY ORDERABLES Performing Organization Address City/[facility]/ZIP Co de Phone Number [facility] [place] [address] * Magnesium (07/29/2024 2:03 PM EST) Magnesium 0.70 0.69 - 1.07 mMol/L 07/29/2024 2:52 PM EST [facility] Blood VENOUS BLOOD SPECIMEN / Unknown Venipuncture / Unknown 07/29/2024 2:03 PM EST 07/29/2024 2:14 PM EST Vahe Marvin MD CHEMISTRY ORDERABLES [facility] [place] [address] * (ABNORMAL) Comprehensive metabolic panel (07/29/2024 2:03 [...] CHEMISTRY ORDERABLES [facility] [place] [address] * (ABNORMAL) Troponin - Single (07/29/2024 2:03 [...] troponin value can be found in the [facility] Laboratory Test Catalog Troponin - [email or web address]/catalogs/565/files/[email or web address] Reference: Fourth Barling Definition of Myocardial Infarction. Journal of the [place] College of Cardiology 2018;72:0332-8421 Blood VENOUS BLOOD SPECIMEN / Unknown Venipuncture / Unknown 07/29/2024 2:03 PM EST 07/29/2024 2:14 PM EST Vahe Marvin MD CHEMISTRY ORDERABLES [facility] [place] [address] * (ABNORMAL) Blood Gas, Venous POC (07/29/2024 [...] - 145 mmol/L 07/29/2024 2:02 PM EST [facility] Potassium, Venous 3.6 3.5 - 5.0 mmol/L 07/29/2024 2:02 PM EST [facility] Chloride, Venous 103 98 [...] CARE TEST O RDERABLES Performing Organization Address City/State/[facility] Co de Phone Number [facility] [place] [address] * CARDIAC CATHETERIZATION (07/29/2024 1:20 PM EST) Anatomical Region Laterality Modality Other Narrative 07/29/2024 2:02 PM EST ?[facility] ? Cardiac Catheterization/Intervention Report ? Patient Name: Korey Montoya Kyrie. ? Procedure Date: 07/29/2024 ? A #: [id number] ? Primary Physician: Vahe Marvin ? Case #: [id number] ? File Name: [id number] ? Catheterization Order Number: [id number] ? [facility] ? Final Report [place], [place] ? Patient Name: ? Korey P. Jan ?ID#: ?[id number] ? : ?1950 ? Procedure Date: ? July 29, 2024 ?Case #: ? [id number] ? Room: ? 5 ? Case Physician: [...] was Emergent. The indication for ?the laborer hoisting visit is ACS less than or equal [...] catheter and a 3.5 Fr [place] [address] ??20 Mhz using ?Manual pullback. ??Imaging [...] A premounted 3.00 x 22 mm Jeison Gove (LOW) was deployed ? with a maximum [...] atmospheres. ??A premounted 3.00 x 08 mm [place] Gove (LOW) ? was deployed with a maximum [...] administered prior to arrival in the laborer hoisting. ?Recommended anti-platelet/anti-thrombotic regimen: ?Start aspirin 81 mg [...] able ?to start weaning his inotropes/vasopressors. A [place] Colette catheter was ?placed demonstrating improvement in [...] ventricular assist device insertion, right heart ?catheterization, [place] (flow directed cath) insertion, access site ?angiography, vascular ultrasound, venous line / sheath insert and vascular ?closure device. ? Vahe Marvin M.D. ? Electronically Signed by: Vahe Marvin M.D. ? Report Finalized: 07/29/2024 ??13:55 ? Report Last Ammended: 09/20/2024 ??15:21 ? Procedure Note Vahe Marvin MD - 09/20/2024 [facility] Cardiac Catheterization/Intervention Report Patient Name: Korey Montoya Procedure Date: 07/29/2024 A #: [id number] Primary Physician: Vahe Marvin Case #: [id number] File Name: [id number] Catheterization Order Number: [id number] [facility] FinalReport [place], [place] Patient Name: Korey Montoya ID#:[id number] :1950 Procedure Date: July 29, 2024 Case [...] was designated as ASA Class IV. The [facility] clinical frailtyscale is 4: Vulnerable. Diagnostic Tests: Electrocardiography: EKG was assessed by ECG. EKG was Abnormal. EKG showed STDeviation >= 0.5 mm. Medications Prior to Procedure: Angiotensin II Receptor Elvis and Statin. Indications for Diagnostic Cath: The priority of the diagnostic procedure was Emergent. Theindication for the laborer hoisting visit is ACS less than or equal [...] catheter and a 3.[address] 20 Mhzusing Manual pullback. Imaging was [...] The priority for the procedure was Emergent.The [facility] indication for the procedure was [...] The lesion was predilated with a 2.00mm [id number] MM balloon with a maximum inflation pressure of 12atmospheres. A premounted 3.00 x 22 mm [place] Gove (LOW) wasdeployed with a maximum inflation pressure [...] atmospheres. A premounted 3.00 x 08 mm [place] Gove(LOW) was deployed with a maximum inflation pressure [...] administered prior to arrival in the laborer hoisting. Recommended anti-platelet/anti-thrombotic regimen: Start aspirin 81 mg [...] wereable to start weaning his inotropes/vasopressors. A [place] Colette catheterwas placed demonstrating improvement in his [...] ventricular assist device insertion, right heart catheterization, [place] (flow directed cath) insertion, access site angiography, [...] O RDERABLES [facility] [place] [address] * (ABNORMAL) BLOOD GAS, POC (07/29/2024 12:12 [...] POINT OF CARE TEST O RDERABLES [facility] [address] [place] [address] documented in this encounter Visit Diagnoses Not [...] Routine documented in this encounter Care Teams Operating Room Technician Relationship Specialty Start Date End Date Alexia Mtz, FREDRICK [address] [place] [address] PCP - General Family Medicine 07/30/24 documented as of this encounter
--- OUTSIDE RECORDS SUMMARY | 2024-10-05 10:03 | XMS_ITS | Encounter Summary ---
Author Organization Count Includes [facility] Address [facility] [place] [address] Care Team Providers Care Retail Sales Director Name Role Phone Yoel Artis Ute ALCALA Primary Care Provider [phone] Encounter Details Date Type Department Care Team (Late st Contact Info) Description 07/29/2024 Orders [place] [address] Susannah Watts PA [facility] [place] [address] [place] [address] Social History Tobacco Use Types Packs/Day Years Used Date Smoking Tobacco: Former Cigarettes Smokeless Tobacco: Never Alcohol Use Standard Drinks/Week Comments Not Currently 0 (1 standard drink = 0.6 oz pur e alcohol) [facility] Utilities Answer Date Recorded In the past 12 months has [employer], [employer], oil, or water [employer] threatened to shut off services in your home? No 07/30/2024 Hunger Vital Sign Answer Date Recorded Within the past 12 months, y ou worried that your food would run out before you got the money to buy more. Never true 07/30/20 Within the past 12 months, t he [...] 9:30 AM EST Appointment [place] [phone] Mushtaq Murphy, DEHYDRATOR TENDER 10/31/2024 11:00 AM EST Office Visit Cardiology at [address] [phone] Mushtaq Murphy, DEHYDRATOR TENDER documented as of this encounter Procedures Procedure Name Priority Date/Time Associated Diagnosis Comments ECHOCARDIOGRAM TRANSTHORACIC Routine 07/30/2024 1:41 AM EST documented in this encounter Results * Echocardiogram Transthoracic (07/30/2024 1:41 AM EST) Anatomical Region Laterality Modality Cardiac Other 07/30/2024 1:41 AM EST Narrative 07/30/2024 8:23 AM EST [address] [place] [address] ? Echocardiogram Report Name: BERMUDEZ KOREY Kyrie ? Study Date: 07/30/2024 01:41 AM : 1950 ? Height: 168 cm Age: 74 yrs ? Weight: 5.9 kg Gender: Male ?BSA: 0.63 m2 Performed By: Beatris Ching MD Reason For Study: STEMI, VT History: ASCVD, HTN, HLD Interpreting Fellow: Beatris Ching. Interpretation Summary This is a limited study performed by a fellow information analyst to evaluate for cardiogenic shock with [...] study available for comparison. Procedure Limited - 45586. Suboptimal quality. There is sinus bradycardia. Left [...] Note Kathleen Banda MD - 07/30/2024 [address] [place] [address] Echocardiogram Report Name: KOREY BERMUDEZ Study Date: 07/30/2024 01:41AM : 1950 Height: 168 cm Age: 74 yrs Weight: 5.9 kg Gender: Male BSA: 0.63 m2 Performed By: Beatris Ching MD Reason For Study: STEMI, VT History: ASCVD, HTN, HLD Interpreting Fellow: Beatris Ching. Interpretation Summary This is a limited study performed by a fellow information analyst to evaluate forcardiogenic shock with impella in. [...] study available for comparison. Procedure Limited - 28564. Suboptimal quality. There is sinus bradycardia. Left [...] in this encounter Care Teams Retail Sales Director Relationship Specialty Start Date End Date Yoel Artis APRN [address] [place] [address] PCP - General Internal Medicine 11/18/22 07/29/24 documented as of this encounter
--- OUTSIDE RECORDS SUMMARY | 2024-10-05 10:03 | XMS_ITS | Encounter Summary ---
Author Organization [facility] Address [facility] [address] Care Team Providers Care Ribbon Blocker Name Role Phone Yoel Artis FREDRICK Primary Care Provider [phone] Encounter Details Date Type Department Care Team (Late st Contact Info) Description 07/29/2024 [place] [phone] Ivan Hernandez MD [facility] [place] [address] Social History Tobacco Use Types Packs/Day Years Used Date Smoking Tobacco: Former Cigarettes Smokeless Tobacco: Never Alcohol Use Standard Drinks/Week Comments Not Currently 0 (1 standard drink = 0.6 oz pur e alcohol) [facility] Utilities Answer Date Recorded In the past 12 months has e [employer], gas, oil, or water [employer] threatened to shut off services in [...] 9:50 AM Hospital to which patient presented: [facility] If [facility] which patient presented[facility] [facility] Medical [...] Unfractionated Heparin Plan STEMI Alert called: Yes Carriage Rider Activated by: Eyewear Manufacturing Supervisor Initial Disposition: Admit Carriage Rider documented in this encounter Plan of Treatment Upcoming Encounters Date Type Department Care Team (Late st Contact Info) Description 10/31/2024 9:30 AM EST Appointment Non-Invasive [place] [address] Mushtaq Murphy APRN 10/31/2024 11:00 AM EST Office Visit Cardiology at [address] [phone] Mushtaq Murphy APRN documented as of this encounter Visit Diagnoses Not on filedocumented in this encounter Care Teams Ribbon Blocker Relationship Specialty Start Date End Date Yoel Artis APRN [address] [place] [address] PCP - General Internal Medicine 11/18/22 07/29/24 documented as of this encounter
--- OUTSIDE RECORDS SUMMARY | 2024-10-05 10:03 | XMS_ITS | Encounter Summary ---
Author Organization [facility] [place] [address] Care Team Providers Care Licensed Weigher Name Role Phone Yoel Artis Ute ALCALA Primary Care Provider [phone] Encounter Details Date Type Department Care Team (Late st Contact Info) Description 07/29/[address] [facility] [address] [place] [phone] Chaparro Montana MD [address] [place] [address] Social History Tobacco Use Types Packs/Day Years Used Date Smoking Tobacco: Former Cigarettes Smokeless Tobacco: Never Alcohol Use Standard Drinks/Week Comments Not Currently 0 (1 standard drink = 0.6 oz pur e alcohol) [facility] Utilities Answer Date Recorded In the past 12 months has [employer], gas, oil, or water [employer] threatened to shut off services in your [...] 9:30 AM EST Appointment [place] [address] Mushtaq Murphy, GANG SUPERVISOR PIPE LINES 10/31/2024 11:00 AM EST Office Visit Cardiology at [address] [phone] Mushtaq Murphy, GANG SUPERVISOR PIPE LINES documented as of this encounter Procedures Procedure Name Priority Date/Time Associated Diagnosis Comments XR CHEST ONE VIEW STAT 07/29/2024 10: 50 AM EST documented in this encounter Results * XR Chest One View (07/29/2024 10:50 AM EST) PT CLASS E RAD ADMITDTTM [id number] RAD PT RAD MD INFO [id number]^Jordy figueroa^Chaparro RAD EXAM DESC XCXR1^XR Chest 1 [...] who have questions please contact the health residential caregiver that requested your imaging first. ? [...] patients who have questions please contactthe health residential caregiver that requested your imaging first. Chaparro Montana MD IMG DX ORDERABLES documented in this encounter Visit Diagnoses Not on filedocumented in this encounter Care Teams Licensed Weigher Relationship Specialty Start Date End Date Yoel Artis APRN [address] [place] [address] PCP - General Internal Medicine 11/18/22 07/29/24 documented as of this encounter
--- OUTSIDE RECORDS SUMMARY | 2024-10-05 10:03 | XMS_ITS | Encounter Summary ---
[place] [address] Care Team Providers Care Supervisor Drapery Hanging Name Role Phone Alexia Mtz FREDRICK Primary Care Provider [phone] Encounter Details Date Type Department Care Team (Late st Contact Info) Description 07/29/2024 External [place] [phone] Social History Tobacco Use Types Packs/Day Years Used Date Smoking Tobacco: Former Cigarettes Smokeless Tobacco: Never Alcohol Use Standard Drinks/Week Comments Not Currently 0 (1 standard drink = 0.6 oz pur e alcohol) [facility] Utilities Answer Date Recorded In the past [...] 9:30 AM EST Appointment Non-[place] [address] Mushtaq Murphy, FREDRICK 10/31/2024 11:00 AM EST Office Visit Cardiology at [address] [phone] Mushtaq Murphy, FREDRICK documented as of this [...] filedocumented in this encounter Care Teams Supervisor Drapery Hanging Relationship Specialty Start Date End Date Alexia Mtz APRN [address] [place] [address] PCP - General Family Medicine 07/30/24 documented as of this encounter
--- OUTSIDE RECORDS SUMMARY | 2024-10-05 10:03 | XMS_ITS | Encounter Summary ---
[place] [address] Care Team Providers Care Food Dehydrator Operator Name Role Phone Yoel Artis FREDRICK Primary Care Provider [phone] Encounter Details Date Type Department Care Team (Late st Contact Info) Description 07/28/2024 Interpretation Only [address] [phone] Quinten Coffey MD [address] [place] [address] Social History Tobacco Use Types Packs/Day Years [...] 9:30 AM EST Appointment [place] [address] Mushtaq Murphy APRN 10/31/2024 11:00 AM EST Office Visit Cardiology at [address] [phone] Mushtaq Murphy, CREEL SELECTOR documented as of this encounter Procedures Procedure Name Priority Date/Time Associated Diagnosis Comments XR CHEST ONE VIEW STAT 07/28/2024 10: 22 AM EST documented in this encounter Results * XR Chest One View (07/28/2024 10:22 AM EST) PT CLASS E RAD ADMITDTTM [id number] RAD PT RAD INFO [id number]^Potter ^Quinten RAD EXAM DESC XCXR1^XR Chest 1 View^RIS [facility] WORKSTATION ID [id number] RAD Anatomical Region [...] who have questions please contact the health reservoir caretaker that requested your imaging first. ? [...] patients who have questions please contactthe health reservoir caretaker that requested your imaging first. Quinten Coffey MD IMG DX ORDERABLES documented in this encounter Visit Diagnoses Not on filedocumented in this encounter Care Teams Food Dehydrator Operator Relationship Specialty Start Date End Date Yoel Artis APRN [address] [place] [address] PCP - General Internal Medicine 11/18/22 07/29/24 documented as of this encounter
--- OUTSIDE RECORDS SUMMARY | 2024-10-05 10:03 | XMS_ITS | Encounter Summary ---
[place] [address] Care Team Providers Care Varitypist Name Role Phone Alexia Mtz MANAGER COMBINATION Primary Care Provider [phone] Encounter Details Date Type Department Care Team (Late st Contact Info) Description 06/25/2024 Lab [place] [address] Aubrey Cali MD [address] [place] [address] Pyuria Social History Tobacco Use Types Packs/Day [...] 9:30 AM EST Appointment [place] [address] Mushtaq Murphy APRN 10/31/2024 11:00 AM EST Office Visit Cardiology at [address] [address] Mushtaq Murphy APRN documented as [...] Cali MD MICROBIOLOGY - GENER AL ORDERABLES [facility] [place] [address] documented in this encounter Visit Diagnoses Diagnosis Pyuria Other nonspecific finding on examination of urine documented in this encounter Care Teams Varitypist Relationship Specialty Start Date End Date Alexia Mtz APRN [address] [place] [address] PCP - General Family Medicine 07/30/24 documented as of this encounter
--- OUTSIDE RECORDS SUMMARY | 2024-10-05 10:03 | XMS_ITS | Encounter Summary ---
Author Organization [facility] Address [facility] [place] [address] Care Team Providers Care Top Collar Maker Name Role Phone Yoel Artis FREDRICK Primary Care Provider [phone] Reason for Visit * Auth/Cert (Routine) Specialty Diagnoses / Procedures Referred By Theodore t Referred To Contact Diagnoses AIRO Procedures [place] ROTARY WING AIR MILEAGE [place] ROTARY WING AIR TRANSPORT AIRO [facility] Referral ID Status Reason Start Date Expiration Date Visits Re quested Visits Authorized [id number] 1 1 Encounter Details Date Type Department Care Team (Latest Contact Info) Description 07/29/2024 6:32 PM EST - 07/29/2024 11:59 PM [facility] Hospital Encounter [facility] at [address] [phone] Arvin Becerra MD [facility] DR EMERGENCY [place] [address] Discharge Disposition: Home Social History Tobacco Use [...] a senior care (including now)? No 07/30/2024 DH IPV Inpatient [...] evening. 04/17/2023 08/04/2024 nitroGLYcerin (NITROLINGUAL) 400 mcg/spray [place], Non-AerosolIndications: Proctalgia fugax,Fecal smearing,Constipation, unspecified constipation type 1 spray to anus for proctalgia fugax as needed, not to exceed once daily 12 g 06/01/2023 08/04/2024 documented as of this encounter Plan of Treatment Upcoming Encounters Date Type Department Care Team (Late st Contact Info) Description 10/31/2024 9:30 AM EST Appointment [place] [address] Mushtaq Murphy APRN 10/31/2024 11:00 AM EST Office Visit Cardiology at [address] [address] Mushtaq Murphy APRN documented as of this encounter Visit Diagnoses Not on filedocumented in this encounter Care Teams Top Collar Maker Relationship Specialty Start Date End Date Yoel Artis APRN [address] [place] [address] PCP - General Internal Medicine 11/18/22 07/29/24 documented as of this encounter
--- OUTSIDE RECORDS SUMMARY | 2024-10-05 10:04 | XMS_ITS | Encounter Summary ---
[place] [address] Care Team Providers Care Beater Boss Name Role Phone Yoel Artis FREDRICK Primary Care Provider [phone] Encounter Details Date Type Department Care Team (Late st Contact Info) Description 01/16/2024 Interpretation Only [facility] [address] [place] [address] Chaparro [place] MD [address] [place] [address] Social History Tobacco Use Types Packs/Day Years [...] 9:30 AM EST Appointment Non-Invasive [place] [address] Mushtaq Murphy APRN 10/31/2024 11:00 AM EST Office Visit Cardiology at [address] [address] Mushtaq Murphy, AIRCRAFT LIFE SUPPORT FITTER documented as of this encounter Procedures Procedure Name Priority Date/Time Associated Diagnosis Comments CT HEAD WO CONTRAST (GENERIC) STAT 01/16/2024 4:17 PM EDT documented in this encounter Results * CT Head wo Contrast (Generic) (01/16/2024 4:17 PM EDT) PT CLASS E RAD ADMITDTTM [id number] RAD PT RAD MD INFO [id number]^Haniss henry^Chaparro RAD EXAM DESC CTHEAD^CT Head w/o [...] who have questions please contact the health floor care technician that requested your imaging first. [...] patients who have questions please contactthe health floor care technician that requested your imaging first. Chaparro [place] MD IMG CT ORDERABLES documented in this encounter Visit Diagnoses Not on filedocumented in this encounter Care Teams Beater Boss Relationship Specialty Start Date End Date Yoel Artis APRN [address] [place] [address] PCP - General Internal Medicine 11/18/22 07/29/24 documented as of this encounter
--- OUTSIDE RECORDS SUMMARY | 2024-10-05 10:04 | XMS_ITS | Encounter Summary ---
[place] [address] Care Team Providers Care Entry Level Project Coordinator Name Role Phone Unknown Primary Care Provider Unavailabl e Encounter Details Date Type Department Care Team (Late st Contact Info) Description 12/03/2018 Interpretation Only [address] [phone] Ac Albrecht PA [address] [place] [address] [place] [address] Social History Tobacco Use Types Packs/Day Years [...] 9:30 AM EST Appointment Non-[place] [address] Mushtaq Murphy APRN 10/31/2024 11:00 AM EST Office Visit Cardiology at [address] [address] Mushtaq Murphy APRN documented as [...] on filedocumented in this encounter Care Teams Entry Level Project Coordinator Relationship Specialty Start Date End Date Unknown None PCP - General 08/04/10 01/16/19 documented as of this encounter
--- OUTSIDE RECORDS SUMMARY | 2024-10-05 10:04 | XMS_ITS | Encounter Summary ---
[place] [address] Care Team Providers Care Hadoop Java Developer Name Role Phone Yoel Artis APRN Primary Care Provider Encounter Details Date Type Department Care Team (Late st Contact Info) Description 03/01/2023 9:30 AM EDT - 03/01/2023 11:59 PM EDT Hospital Encounter [facility] Lab [address] [place] [address] Yoel Artis, SWEATBAND SEPARATOR [address] [place] [address] Discharge Disposition: Home Social History Tobacco Use [...] 9:30 AM EST Appointment Non-[place] [address] Mushtaq Murphy, FREDRICK 10/31/2024 11:00 AM EST Office Visit Cardiology at [address] [address] Mushtaq Murphy APRN documented as of this encounter Procedures Procedure Name Priority Date/Time Associated Diagnosis Comments PSA (ULTRASENSITIVE) Routine 03/01/2023 9:38 AM EDT documented in this encounter Results * (ABNORMAL) PSA (Ultrasensitive) (03/01/2023 9:38 AM EDT) Prostate Specific Antigen (Ultrasensitive) 5.09(H) 0.00 - 4.00 ng/mL [facility] Comment: PLEASE NOTE: The above reference [...] In Lab Yoel Artis APRN CHEMISTRY ORDERABLES [facility] [place] [address] documented in this encounter Visit Diagnoses Not on filedocumented in this encounter Care Teams Hadoop Java Developer Relationship Specialty Start Date End Date Yoel Artis APRN [address] [place] [address] PCP - General Internal Medicine 11/18/22 07/29/24 documented as of this encounter
--- OUTSIDE RECORDS SUMMARY | 2024-10-05 10:04 | XMS_ITS | Encounter Summary ---
[place] [address] Care Team Providers Care Pickle Pumper Name Role Phone Yoel Artis FREDRICK Primary Care Provider [phone] Reason for Visit * Auth/Cert (Routine) Specialty Diagnoses / Procedures Referred By Theodore t Referred To Contact Diagnoses Anal spasm Fecal smearing Constipation, unspecified Rectal pain, fecal smearing Procedures PRO COLONOSCOPY, DIAGNOSTIC PRO COLONOSCOPY, BIOPSY PRO COLONOSCOPY, REMV LESN, SNARE COLONOSCOPY, DIAGNOSTIC (WRVU 3.26) Brandan Mcgovern MD [facility] [place] [address] [facility] Referral ID Status Reason Start Date Expiration Date Visits Re quested Visits Authorized [id number] 1 1 Encounter Details Date Type Department Care Team (Late st Contact Info) Description 08/30/2023 11:00 AM EST - 08/30/2023 12:00 PM EST Surgery [place] [address] Brandan Mcgovern MD [facility] [place] [address] COLONOSCOPY, POLYPECTOMY, REMOVAL LESION BY SNARE (WRVU [...] occurs, please contact your Doctor. Please call [phone] before 8pm Mon-Fri with problems, questions or concerns. If you call after 8pm or on weekends, call the Hospital at [phone] and ask to speak to the Waste Cotton Cleaner front window cashier and the catalyst operator gasoline will contact that person for you. When should you call for help? Call [phone] anytime you think you may need emergency [...] any problems. Where can you learn more? [facility] View your After Visit Summary and more online at [email or web address] If you would like to provide [...] cost to you. Content Version: 12.2 ?? [id number] [employer]. Care instructions adapted under license by [facility]. If you have questions about a medical condition or this instruction, always ask your healthcare professional. [employer] disclaims any warranty or liability for your [...] evening. 04/17/2023 08/04/2024 nitroGLYcerin (NITROLINGUAL) 400 mcg/spray [place], Non-AerosolIndications:P roctalgia fugax,Fecal smearing,Constipation, unspecified constipation type [...] 9:30 AM EST Appointment Non-Invasive [place] [phone] Mushtaq Murphy APRN 10/31/2024 11:00 AM EST Office Visit Cardiology at [address] [phone] Mushtaq Murphy APRN documented as of this encounter Procedures Procedure Name Priority Date/Time Associated Diagnosis Comments SPECIMEN TO PATHOLOGY Routine 08/30/2023 11:23 AM EST SURGICAL PATHOLOGY REPORT Routine 08/30/2023 11:21 AM EST COLONOSCOPY Routine 08/30/2023 10:57 AM EST Colonoscopy, Antonieta Valadez ([id number]) 08/30/2023 10:44 AM EST Proctalgia fugax Fecal smearing Constipation, unspecified constipation type documented in this encounter Results * Specimen to Pathology (08/30/2023 11:23 AM EST) AP Specimen 08/30/2023 11:2 3 AM EST 08/30/2023 11:23 AM EST Narrative [facility] - 08/30/2023 11:23 AM EST Specimen requisition ordered. ??Separate Pathology report to follow Brandan Mcgovern MD PATHOLOGY/CYTOLOGY O RDERASHAY [facility] [place] [address] * Surgical Pathology Report (08/30/2023 11:21 AM EST) Final Diagnosis [id number] ? Location: 4T; EA12; A The signing pathologist has (i) examined the relevant preparation(s) for the specimen(s) and (ii) rendered or confirmed the diagnosis(es). . ?Surgical Pathology DIAGNOSIS A - Sigmoid colon polyp, resection (Multiple): - ??Tubular adenoma. CR-PX Electronically signed by: ?Blake ORTEGA PhD, Yulia Verified: ??09/08/2023 14:48 ??Pathologist Performed at: ??-[facility] Dept. of Pathology, [place] [address] Global Account Executive: Fercho Chan MD, AP, ??CLIA Certificate: [id number] SPECIMEN(S) SUBMITTED A - Sigmoid colon polyp, [...] EST Brandan Mcgovern MD PATHOLOGY/CYTOLOGY Veronica MORENO [facility] [place] [address] [facility] [place] [address] * COLONOSCOPY (08/30/2023 10:57 AM EST) COLONOSCOPY [facility] Endoscopy Procedure Date: 08/30/2023 10:57 AM ? Patient Name: Korey Montoya ? Date of : 1950 ? Age: 73 ? Order #: [id number] ? Instrument Name: [id number] ? Procedure: ? Colonoscopy Indications: ? Rectal [...] preparation was evaluated ? using the BBPS ([place] Bowel ? Preparation Scale) with scores of: [...] RN) documented in this encounter Care Teams Pickle Pumper Relationship Specialty Start Date End Date Yoel Artis APRN [address] [place] [address] PCP - General Internal Medicine 11/18/22 07/29/24 documented as of this encounter
--- OUTSIDE RECORDS SUMMARY | 2024-10-05 10:04 | XMS_ITS | Encounter Summary ---
[place] [address] Care Team Providers Care Mobile Home Installer Name Role Phone Yoel Artis APRN Primary Care Provider Encounter Details Date Type Department Care Team (Late st Contact Info) Description 12/23/2022 8:20 AM EDT - 12/23/2022 11:59 PM EDT Hospital Encounter [facility] [address] [place] [address] Yoel Artis, BALLASTER [address] [place] [address] Discharge Disposition: Home Social History Tobacco Use [...] 9:30 AM EST Appointment Non-[place] [address] Mushtaq Murphy, FREDRICK 10/31/2024 11:00 AM EST Office Visit Cardiology at [address] [phone] Mushtaq Murphy APRN documented as of this encounter Procedures Procedure Name Priority Date/Time Associated Diagnosis Comments PSA SCREEN Routine 12/23/2022 8:43 AM EDT documented in this encounter Results * (ABNORMAL) PSA Screen (12/23/2022 8:43 AM EDT) PSA Screen 4.37(H) 0.00 - 4.00 ng/mL [facility] [...] Artis APRN CHEMISTRY ORDERABLES Performing Organization Address City/State/[facility] Co de Phone Number [facility] [place] [address] documented in this encounter Visit Diagnoses Not on filedocumented in this encounter Care Teams Mobile Home Installer Relationship Specialty Start Date End Date Yoel Artis APRN [address] [place] [address] PCP - General Internal Medicine 11/18/22 07/29/24 documented as of this encounter
--- OUTSIDE RECORDS SUMMARY | 2024-10-05 10:04 | XMS_ITS | Encounter Summary ---
[place] [address] Care Team Providers Care Boat Hoist Operator Helper Name Role Phone Yoel Artis APRN Primary Care Provider [phone] Reason for Referral * Consultation (Routine) - Closed Specialty Diagnoses / Procedures Referred By Theodore muro Referred To Contact Gastroenterology Diagnoses Anal spasm anal spasm Yoel Artis APRN [address] [place] [address] [facility] [place] [address] Referral ID Status Reason Start Date Expiration Date V isits Requested Visits Authorized [id number] Closed Consult, Test & Treat PCP Updated and/or Approved 05/26/2023 05/25/2024 6 6 Encounter Details Date Type Department Care Team (Late st Contact Info) Description 05/26/2023 Transcribe Orders eDH Incoming Referrals [phone] Yoel Artis APRN [address] [place] [address] Anal spasm Social History [...] 9:30 AM EST Appointment Non-[place] [address] Mushtaq Murphy APRN 10/31/2024 11:00 AM EST Office Visit Cardiology at [address] [phone] Mushtaq Murphy, LOG CUT OFF SAWYER Scheduled Referrals Name Type Priority Associated Diagnoses Order Schedule Referral to Gastroenterology Outpatient Referral Routine Anal spasm Ordered: 05/26/2023 documented as of this encounter Visit Diagnoses Diagnosis Anal spasm documented in this encounter Care Teams Boat Hoist Operator Helper Relationship Specialty Start Date End Date Yoel Artis APRN [address] [place] [address] PCP - General Internal Medicine 11/18/22 07/29/24 documented as of this encounter
--- OUTSIDE RECORDS SUMMARY | 2024-10-05 10:04 | XMS_ITS | Encounter Summary ---
[place] [address] Care Team Providers Care Underwriting Internship Name Role Phone Yoel Artis APRN Primary Care Provider [phone] Reason for Referral * Consultation (Routine) - Closed Specialty Diagnoses / Procedures Referred By Theodore muro Referred To Contact Urology Diagnoses Raised prostate specific antigen PERSISTENTLY MILDLY ELEVATED PSA, URINARY FREQ Yoel Artis APRN [address] [place] [address] [facility] [place] [address] Referral ID Status Reason Start Date Expiration Date V isits Requested Visits Authorized [id number] Closed Consult, Test & Treat PCP Updated and/or Approved 07/30/2023 07/29/2024 6 6 Encounter Details Date Type Department Care Team (Late st Contact Info) Description 07/30/2023 Transcribe Orders eDH Incoming Referrals [phone] Yoel Artis APRN [address] [place] [address] Raised prostate specific antigen Social History Tobacco [...] 9:30 AM EST Appointment Non[place] [address] Mushtaq Murphy APRN 10/31/2024 11:00 AM EST Office Visit Cardiology at [address] [phone] Mushtaq Murphy, FREDRICK Scheduled Referrals Name Type Priority Associated Diagnoses Orde r Schedule Referral to Urology Outpatient Referral Routine Raised prostate specific antigen Ordered: 07/30/2023 documented as of this encounter Visit Diagnoses Diagnosis Raised prostate specific antigen Elevated prostate specific antigen (PSA) documented in this encounter Care Teams Underwriting Internship Relationship Specialty Start Date End Date Yoel Artis APRN [address] [place] [address] PCP - General Internal Medicine 11/18/22 07/29/24 documented as of this encounter
--- OUTSIDE RECORDS SUMMARY | 2024-10-05 10:04 | XMS_ITS | Encounter Summary ---
Author Organization [facility] [place] [address] Care Team Providers Care Devops Developer Name Role Phone Yoel Artis APRN Primary Care Provider Reason for Referral * Consultation (Routine) - Closed Specialty Diagnoses / Procedures Referred By Theodore muro Referred To Contact Gastroenterology Diagnoses Proctalgia fugax Fecal smearing Constipation, unspecified constipation type group Yoel Dangelo APRN [facility] [place] [address] Paulette Glynn, PhD [facility] [place] [address] Referral ID Status Reason Start Date Expiration Date V isits Requested Visits Authorized [id number] Closed Consult, Test & Treat 06/01/2023 05/31/2024 1 1 Reason for Visit * Consultation (Routine) - Closed Specialty Diagnoses / Procedures Referred By Theodore muro Referred To Contact Gastroenterology Diagnoses Anal spasm motility- anal spasms Yoel Artis APRN [address] [place] [address] [facility] [address] [place] [address] Referral ID Status Reason Start Date Expiration Date V isits Requested Visits Authorized [id number] Closed Consult, Test & Treat PCP Updated and/or Approved 11/18/2022 11/18/2023 6 6 Encounter Details Date Type Department Care Team (Latest Contact Info) Description 06/01/2023 8:00 AM EDT TH Visit (TeleHealth) [place] [address] Yoel Dangelo, DIRECTOR OF SPECIAL EDUCATION [facility] [address] Proctalgia fugax; Fecal smearing; Constipation, unspecified constipation [...] hear from us within 1 week: Clinic [phone] Motility Lab scheduling [phone] Endoscopy scheduling- [phone] Diagnostics: -Colonoscopy for rectal pain -Anorectal manometry [...] connection and our services, please visit the [facility] website at: [email or web address] Our hope is that through these classes, [...] please contact your insurance company or the [facility] billing office ([email or web address]). Your insurance company may request a CPT code if you ask about coverage. [place] [address]. If you're interested in attending any of these classes or workshops, please reach out to our scheduling team via [facility] or phone ([phone]). You should start a fiber supplement if [...] common type of gastrointestinal disorders in the [facility] The most common functional bowel disorder in the [facility] is irritable bowel syndrome (IBS) Irritable bowel [...] what is the impact? 15-20% of general [place] population has IBS or FD or both 2nd most common cause for lost work days (after common cold) in [place] Estimated $30 billion dollar cost to [place] economy per year These disorders can have [...] with immediate onset of symptoms after infection); skilled nursing symptoms are expected in most patients however [...] to you primary care provider and/or local purchasing associate and share this document. Treatment of functional [...] - this approach benefits most patients OTC (bfhn-jmc-balzxii) medications can be used for ongoing bothersome [...] All-Bran psyllium buds, Metamucil, Konsyl, bulk psyllium ([employer] and [employer] stores) Specifically we recommend starting Metamucil or [...] but convincing medical evidence is still lacking Woev-ocq-rkfvama supplements including probiotics are not typically evaluated [...] to decrease antibiotic-associated diarrhea and antibiotic-related infections Zgdi-uoz-Mvnmhqv Medications for Functional Gut Disorders Based on [...] a stool softener that is safe for skilled nursing usage (no risk of dependency) andthe dosage [...] (GERD) Often a combination of anti-nausea medications (lvzq-zzb-ellxjoh or prescription) works better thanhigh doses of [...] for misuse/misinterpretation of this information Patient Resources [place] [employer] https://www.gastro.org/practice-guidance/xx-rrgdxex-jvlcxg/ topic/jnfssdjca-qpjhh-gzqbzbml-ibs Badgut.org https://badgut.org/information-centre/x-u-vxfvjzbwj-topics/ibs/ AboutIBS.org https://www.aboutibs.org/ U[employer]odate[employer]com https://www.uptodate.com/contents/ezmepmajo-jashb-sedellnf-miskkd-fpc-amzhyq documented in this encounter Progress Notes * [...] Denies weight loss Last colo 2017 at [facility] with no polyps. Current Regimen: Metamucil daily [...] recommendations above. The patient was located in [place] at the time of their visit. TIME SPENT WITH PATIENT Time spent reviewing records prior to this encounter on day of appointment: 2 minutes Time spent during encounter with patient including counselin minutes Time spent documenting encounter after office visit: 7 minutes Yoel Dangelo APRN [facility] [place] [address] documented in this encounter Plan of Treatment Upcoming Encounters Date Type Department Care Team (Late st Contact Info) Description 10/31/2024 9:30 AM EST Appointment Non-Invasive [place] [address] Mushtaq Murphy APRN 10/31/2024 11:00 AM EST Office Visit Cardiology at [address] [address] Mushtaq Murphy APRN Scheduled Orders Name Type [...] type documented in this encounter Care Teams Devops Developer Relationship Specialty Start Date End Date Yoel Artis APRN [address] [place] [address] PCP - General Internal Medicine 11/18/22 07/29/24 documented as of this encounter
--- OUTSIDE RECORDS SUMMARY | 2024-10-05 10:04 | XMS_ITS | Encounter Summary ---
[place] [address] Care Team Providers Care Carpenter Repairer Name Role Phone Yoel Artis APRN Primary Care Provider [phone] Reason for Referral * Consultation (Routine) - Closed Specialty Diagnoses / Procedures Referred By Theodore muro Referred To Contact Gastroenterology Diagnoses Anal spasm motility- anal spasms Yoel Artis APRN [address] [place] [address] [facility] [address] [place] [address] Referral ID Status Reason Start Date Expiration Date V isits Requested Visits Authorized [id number] Closed Consult, Test & Treat PCP Updated and/or Approved 11/18/2022 11/18/2023 6 6 Encounter Details Date Type Department Care Team (Late st Contact Info) Description 11/18/2022 Transcribe Orders eDH Incoming Referrals [phone] Yoel Artis APRN [address] [place] [address] Anal spasm Social History Tobacco [...] 9:30 AM EST Appointment [place] [address] Mushtaq Murphy, FREDRICK 10/31/2024 11:00 AM EST Office Visit Cardiology at [address] [address] Mushtaq Murphy, SPORTS ANALYST Scheduled Referrals Name Type Priority Associated Diagnoses Order Schedule Referral to Gastroenterology Outpatient Referral Routine Anal spasm Ordered: 11/18/2022 documented as of this encounter Visit Diagnoses Diagnosis Anal spasm documented in this encounter Care Teams Carpenter Repairer Relationship Specialty Start Date End Date Yoel Artis APRN [address] [place] [address] PCP - General Internal Medicine 11/18/22 07/29/24 documented as of this encounter
--- OUTSIDE RECORDS SUMMARY | 2024-10-05 10:04 | XMS_ITS | Encounter Summary ---
[place] [address] Care Team Providers Care Title Curative Specialist Name Role Phone Yoel Artis FREDRICK Primary Care Provider [phone] Encounter Details Date Type Department Care Team (Late st Contact Info) Description 08/26/2023 Telephone [place] [address] Madelyn Vasquez Social History Tobacco Use Types [...] - 08/26/2023 9:23 AM EST Korey Montoya [id number] Diagnosis/Indication: Rectal pain, fecal smearing Please review [...] ever had a/an Colonoscopy before? Yes: Date gneqan0ach ago [facility] If yes, did you have any [...] your procedure. Who will likely be your local owner operator truck driver for the procedure? Please Verify [...] 9:30 AM EST Appointment [place] [address] Mushtaq Murphy APRN 10/31/2024 11:00 AM EST Office Visit Cardiology at [address] [phone] Mushtaq Murphy, FREDRICK documented as of this encounter Visit Diagnoses Not on filedocumented in this encounter Care Teams Title Curative Specialist Relationship Specialty Start Date End Date Yoel Artis APRN [address] [place] [address] PCP - General Internal Medicine 11/18/22 07/29/24 documented as of this encounter
--- OUTSIDE RECORDS SUMMARY | 2024-10-05 10:04 | XMS_ITS | Encounter Summary ---
[place] [address] Care Team Providers Care Bread Baker Name Role Phone Anibal Mtz MD Primary Care Provider [phone] Encounter Details Date Type Department Care Team (Late st Contact Info) Description 01/18/2019 3:00 PM EDT Interpretation Only Cardiology at [address] [phone] Alberto Powell Jr., MD Dizziness Social History [...] 9:30 AM EST Appointment Non-[place] [address] Mushtaq Murphy APRN 10/31/2024 11:00 AM EST Office Visit Cardiology at [address] [address] Mushtaq Murphy, FREDRICK documented as [...] giddiness documented in this encounter Care Teams Bread Baker Relationship Specialty Start Date End Date Anibal Mtz MD [address] [place] [address] PCP - General Family Medicine 01/17/19 11/17/22 documented as of this encounter
--- OUTSIDE RECORDS SUMMARY | 2024-10-05 10:04 | XMS_ITS | Encounter Summary ---
Author Organization [facility] [place] [address] Care Team Providers Care Collar Packer Name Role Phone Unknown Primary Care Provider Unavailabl e Encounter Details Date Type Department Care Team (Late st Contact Info) Description 01/13/2019 9:05 PM EDT Ancillary Procedure Radiology Library at [facility] [place] [phone] Sunny Aviles MD [facility] [place] [address] Social History Tobacco Use Types Packs/Day Years [...] 9:30 AM EST Appointment Non[place] [address] Mushtaq Murphy APRN 10/31/2024 11:00 AM EST Office Visit Cardiology at [address] [address] Mushtaq Murphy, FREDRICK documented as [...] IMG FILM LIBRARY ORDERABLES Performing Organization Address City/State/[facility] Co de Phone Number [place], [place] documented in this encounter Visit Diagnoses Not on filedocumented in this encounter Care Teams Collar Packer Relationship Specialty Start Date End Date Unknown None PCP - General 08/04/10 01/16/19 documented as of this encounter
--- OUTSIDE RECORDS SUMMARY | 2024-10-05 10:04 | XMS_ITS | Encounter Summary ---
Author Organization [facility] [place] [address] Care Team Providers Care Log Chipper Operator Name Role Phone Yoel Artis Ute ALCALA Primary Care Provider Encounter Details Date Type Department Care Team (Late st Contact Info) Description 01/16/2024 5:46 PM EDT - 01/16/2024 11:59 PM EDT Hospital Encounter [facility] [address] [place] [address] Chaparro Montana MD [address] [place] [address] Discharge Disposition: Home Social History Tobacco Use [...] evening. 04/17/2023 08/04/2024 nitroGLYcerin (NITROLINGUAL) 400 mcg/spray [place], Non-AerosolIndications:P roctalgia fugax,Fecal smearing,Constipation, unspecified constipation type 1 spray to anus for proctalgia fugax as needed, not to exceed once daily 12 g 06/01/2023 08/04/2024 documented as of this encounter Plan of Treatment Upcoming Encounters Date Type Department Care Team (Late st Contact Info) Description 10/31/2024 9:30 AM EST Appointment Non-[place]vasive [place] [address] Mushtaq Murphy, FREDRICK 10/31/2024 11:00 AM EST Office Visit Cardiology at [address] [address] Mushtaq Murphy, FREDRICK documented as of this encounter Procedures Procedure Name Priority Date/Time Associated Diagnosis Comments URINE CULTURE Routine 01/16/2024 4:00 PM EDT documented in this encounter Results * Urine culture (01/16/2024 4:00 PM EDT) Urine Culture No growth (Less than 1,000 cfu/ml). [facility] Urine 01/16/2024 4:00 PM EDT 01/16/2024 10:36 PM EDT Narrative Resulting Agency Comment Spec In Lab Chaparro Montana MD MICROBIOLOGY - [facility] ORDERABLES [facility] [place] [address] documented in this encounter Visit Diagnoses Not on filedocumented in this encounter Care Teams Log Chipper Operator Relationship Specialty Start Date End Date Yoel Artis APRN [address] [place] [address] PCP - General Internal Medicine 11/18/22 07/29/24 documented as of this encounter
--- OUTSIDE RECORDS SUMMARY | 2024-10-05 10:04 | XMS_ITS | Encounter Summary ---
[place] [address] Care Team Providers Care Lead Case Manager Name Role Phone Alexia Mtz TUBER MACHINE OPERATOR Primary Care Provider [phone] Encounter Details Date Type Department Care Team (Late st Contact Info) Description 04/23/2024 Lab [place] [address] Alexia Mtz, TUBER MACHINE OPERATOR [address] [place] [address] Elevated prostate specific antigen (PSA) Social History [...] 9:30 AM EST Appointment Non-Invasive [place] [address] Mushtaq Murphy, TUBER MACHINE OPERATOR 10/31/2024 11:00 AM EST Office Visit Cardiology at [address] [address] Mushtaq Murphy, FREDRICK documented as of this encounter Procedures Procedure Name Priority Date/Time Associated Diagnosis Comments PSA (ULTRASENSITIVE), TOTAL AND FREE Routine 04/23/2024 1:09 PM EDT Elevated prostate specific antigen (PSA) documented in this encounter Results * (ABNORMAL) PSA (Ultrasensitive), total and free (04/23/2024 1:09 PM EDT) Prostate Specific Antigen (Ultrasensitive) 5.24(H) 0.00-4.00 ng/mL ng/ml 04/23/2024 5:18 PM EDT [facility] Comment:The reference interv al (0 - 4 ng/mL) is applicable to individuals with an intact prostate. Values within this reference interval may indicate recurrence in those who have undergone radical prostatectomy. This result was generated using a Optimizely Osiel immunoassay. Results obtained from other methods or manufacturers cannot be used interchangeably with this method. Prostate Specific Antigen, Free 1.1 ng/ml 04/23/2024 5:18 PM EDT [facility] Comment:This result was gene rated using a Optimizely Osiel immunoassay. Results obtained from other methods or manufacturers cannot be used interchangeably with this method. PSA % Free 21 % 04/23/2024 5:18 PM EDT [facility] Comment: Probability of finding ROVING WEIGHT GAUGER on needle biopsy by age in years: [...] EDT 04/23/2024 4:50 PM EDT Alexia Mtz TUBER MACHINE OPERATOR CHEMISTRY ORDERABLES Performing Organization Address City/State/[facility] Co de Phone Number [facility] [place] [address] documented in this encounter Visit Diagnoses Diagnosis Elevated prostate specific antigen (PSA) documented in this encounter Care Teams Lead Case Manager Relationship Specialty Start Date End Date Alexia Mtz, FREDRICK [address] [place] [address] PCP - General Family Medicine 07/30/24 documented as of this encounter
--- OUTSIDE RECORDS SUMMARY | 2024-10-05 10:04 | XMS_ITS | Encounter Summary ---
Author Organization [facility] [place] [address] Care Team Providers Care Engineer Steam Name Role Phone Yoel Artis Ute ALCALA Primary Care Provider [phone] Reason for Visit * Auth/Cert (Routine) Specialty Diagnoses / Procedures Referred By Theodore t Referred To Contact Diagnoses Anal spasm Fecal smearing Constipation, unspecified Rectal pain, fecal smearing Procedures PRO COLONOSCOPY, DIAGNOSTIC PRO COLONOSCOPY, BIOPSY PRO COLONOSCOPY, REMV LESN, SNARE COLONOSCOPY, DIAGNOSTIC (WRVU 3.26) Brandan Mcgovern MD [facility] [place] [address] [facility] Referral ID Status Reason Start Date Expiration Date Visits Re quested Visits Authorized [id number] 1 1 Encounter Details Date Type Department Care Team (Latest Contact Info) Description 08/30/2023 10:09 AM EST - 08/30/2023 12:19 PM [facility] Hospital Encounter [place] [address] Brandan Mcgovern MD [facility] [place] [address] Discharge Disposition: Home Social History Tobacco Use [...] occurs, please contact your Doctor. Please call [phone] before 8pm Mon-Fri with problems, questions or concerns. If you call after 8pm or on weekends, call the Hospital at [phone] and ask to speak to the Office Employee delinquency prevention officer and the line up machine operator will contact that person for you. When should you call for help? Call 589 anytime you think you may need emergency [...] problems. Where can you learn more? [facility] View your After Visit Summary and more online at [email or web address] If you would like to provide feedback about your hospital experience, please call the Office of Patient and Family Relations at . If you have received this After Visit Summary in error, please immediately return it in person to the department, or notify the [facility] Privacy Office by calling toll free at between the hours of 8AM and 5PM to arrange for our retrieval of the documents at no cost to you. Content Version: 12.2 ?? [id number] [employer] [place]. Care instructions adapted under license by [facility]. If you have questions about a medical condition or this instruction, always ask your healthcare professional. [employer] [place] disclaims any warranty or liability for your [...] evening. 04/17/2023 08/04/2024 nitroGLYcerin (NITROLINGUAL) 400 mcg/spray [place], Non-AerosolIndications:P roctalgia fugax,Fecal smearing,Constipation, unspecified constipation type [...] 9:30 AM EST Appointment Non-Invasive [place] [address] Mushtaq Murphy APRN 10/31/2024 11:00 AM EST Office Visit Cardiology at [address] [address] Mushtaq Murphy APRN documented as of this encounter Procedures Procedure Name Priority Date/Time Associated Diagnosis Comments SPECIMEN TO PATHOLOGY Routine 08/30/2023 11:23 AM EST SURGICAL PATHOLOGY REPORT Routine 08/30/2023 11:21 AM EST COLONOSCOPY Routine 08/30/2023 10:57 AM EST Colonoscopy, Antonieta Valadez ([id number]) 08/30/2023 10:44 AM EST Proctalgia fugax Fecal smearing Constipation, unspecified constipation type documented in this encounter Results * Specimen to Pathology (08/30/2023 11:23 AM EST) AP Specimen 08/30/2023 11:2 3 AM EST 08/30/2023 11:23 AM EST Narrative [facility] - 08/30/2023 11:23 AM EST Specimen requisition ordered. ??Separate Pathology report to follow Brandan Mcgovern MD PATHOLOGY/CYTOLOGY O RDERASHAY [facility] [place] [address] * Surgical Pathology Report (08/30/2023 11:21 AM EST) Final Diagnosis [id number] ? Location: 4T; EA12; A The signing pathologist has (i) examined the relevant preparation(s) for the specimen(s) and (ii) rendered or confirmed the diagnosis(es). . ?Surgical Pathology DIAGNOSIS A - Sigmoid colon polyp, resection (Multiple): - ??Tubular adenoma. CR-PX Electronically signed by: ?Blake ORTEGA PhD, Yulia Verified: ??09/08/2023 14:48 ??Pathologist Performed at: ??-[facility] Dept. of Pathology, [place] [address] Fire Production Operator: Fercho Chan MD, FCAP, ??CLIA Certificate: [id number] SPECIMEN(S) SUBMITTED A - Sigmoid colon polyp, resection (Multiple) CLINICAL INFORMATION 73-year-old male, history of rectal pain SPECIMEN PROCESSING A - Labeled/Fixativ e: Sigmoid colon polyp, formalin. Quantity/Size: Single, 0.8 cm. Tissue Description: Soft, candelaria tissue. Sections/Proces sing: Submitted in toto ??in 1 cassette labeled A1. ??sdy 09/08/2023 2:48 PM EST [facility] GI Biopsy 08/30/2023 11:2 1 AM EST 08/30/2023 11:21 AM EST Brandan Mcgovern MD PATHOLOGY/CYTOLOGY Veronica RDCLAIREBLES [facility] [place] [address] [facility] [place] [address] * COLONOSCOPY (08/30/2023 10:57 AM EST) COLONOSCOPY [facility] Endoscopy Procedure Date: 08/30/2023 10:57 AM ? Patient Name: Korey Montoya ? N: [id number] ? Date of : 1950 ? Age: 73 ? Order #: [id number] ? Instrument Name: [id number] ? Procedure: ? Colonoscopy Indications: ? Rectal [...] preparation was evaluated ? using the BBPS (H[place]ford Bowel ? Preparation Scale) with scores of: [...] RN) documented in this encounter Care Teams Engineer Steam Relationship Specialty Start Date End Date Yoel Artis APRN [address] [place] [address] PCP - General Internal Medicine 11/18/22 07/29/24 documented as of this encounter
--- OUTSIDE RECORDS SUMMARY | 2024-10-05 10:04 | XMS_ITS | Encounter Summary ---
[place] [address] Care Team Providers Care Public Relations Sales Marketing Name Role Phone Anibal Mtz MD Primary Care Provider [phone] Encounter Details Date Type Department Care Team (Late st Contact Info) Description 11/08/2022 [facility] Only [address] [address] Eve Frost MD [address] [place] [phone] Social History Tobacco Use Types Packs/Day Years [...] 9:30 AM EST Appointment Non-Invasive [place] [address] Mushtaq Murphy APRN 10/31/2024 11:00 AM EST Office Visit Cardiology at [address] [address] Mushtaq Murphy, MACHINE FEATHEREDGER AND REDUCER documented as of this encounter Procedures Procedure Name Priority Date/Time Associated Diagnosis Comments XR CHEST PA AND LATERAL STAT 11/08/2022 10:34 AM EST documented in this encounter Results * XR Chest PA & Lateral (Generic) (11/08/2022 10:34 AM EST) PT CLASS E DH RAD ADMITDTTM RAD PT RAD INFO [id number]^C HANDER^SUNEE R RAD EXAM DESC XCXR2^XR CHEST [...] who have questions please contact the health coronary care unit nurse that requested your imaging first. ? Electronically signed by: Alejandro Tenorio MD, [facility] ([phone]), at 11/08/2022 10:37 AM Narrative 11/08/2022 10:37 [...] patients who have questions please contactthe health coronary care unit nurse that requested your imaging first. Electronically signed by: Alejandro Tenorio MD, [facility]([phone]), at 11/08/2022 10:37 AM Eve Frost MD IMG DX ORDERABLES documented in this encounter Visit Diagnoses Not on filedocumented in this encounter Care Teams Public Relations Sales Marketing Relationship Specialty Start Date End Date Anibal Mtz MD [address] [place] [address] PCP - General Family Medicine 01/17/19 11/17/22 documented as of this encounter
--- OUTSIDE RECORDS SUMMARY | 2024-10-05 10:04 | XMS_ITS | Encounter Summary ---
Author Organization [facility] Address [facility] [place] [address] Care Team Providers Care White Washer Piler Name Role Phone Yoel Artis APRN Primary Care Provider [phone] Encounter Details Date Type Department Care Team (Latest Contact Info) Description 11/30/2023 8:00 AM EDT TH Visit (TeleHealth) [place] [address] Yoel Dangelo APRN [facility] [place] [address] Proctalgia fugax; Constipation, unspecified constipation type Social [...] Bath: Sitz bath's are available in most [facility]. They work by improving blood flow and [...] Handout for Patients and Primary Care Providers [facility] Gastrointestinal Motility, Esophageal, and Swallowing Disorders Center What are functional bowel disorders? These are the most common type of gastrointestinal disorders in the [facility] The most common functional bowel [...] what is the impact? 15-20% of general [place] population has IBS or FD or both 2nd most common cause for lost work days (after common cold) in [place] Estimated $30 billion dollar cost to [place] economy per year These disorders can have [...] with immediate onset of symptoms after infection); [facility] symptoms are expected in most patients however [...] to you primary care provider and/or local artist model and share this document. Treatment of functional [...] - this approach benefits most patients OTC (ofuf-kkt-ewhnryw) medications can be used for ongoing bothersome symptoms as listed below Your provider (PCP or local Gastroenterology provider or [facility] Gastroenterology provider) may decide to use prescription [...] All-Bran psyllium buds, Metamucil, Konsyl, bulk psyllium ([employer] stores and [employer] stores) Specifically we recommend starting Metamucil or [...] but convincing medical evidence is still lacking Wavt-iak-jpvwzye supplements including probiotics are not typically evaluated [...] to decrease antibiotic-associated diarrhea and antibiotic-related infections Qydj-yxv-Cbfsvgf Medications for Functional Gut Disorders Based on [...] a stool softener that is safe for [place] [facility] usage (no risk of dependency) andthe dosage [...] (GERD) Often a combination of anti-nausea medications (amha-qku-zedvgrh or prescription) works better thanhigh doses of [...] for misuse/misinterpretation of this information Patient Resources [place] [employer] https://www.gastro.org/practice-guidance/sc-wfuqthh-ctzdbh/ topic/epbwvwynf-tnwxj-frbrccxv-ibs Badgut.org https://badgut.org/information-centre/w-s-jpjryphiy-topics/ibs/ AboutIBS.org https://www.aboutibs.org/ Uptodate.com https://www.uptodate.com/contents/fruikxrxe-fsvuu-rfrbxdqx-knlnmw-vbo-fzcjvq documented in this encounter Progress Notes * [...] Take by mouth. nitroGLYcerin (NITROLINGUAL) 400 mcg/spray [place], Non-Aerosol 1 spray to anus for proctalgia fugax as needed, not to exceed once daily 12 g 0 No facility-administered medications prior to visit. Allergies: has No Known Allergies. Past Medical History: has a past medical history of ADHD, HLD (hyperlipidemia), HTN (hypertension),and Tremor. Past Surgical History: has a past surgical history that includes Hand surgery and Colonoscopy, Antonieta Pfeiffer ([id number]) (N/A, 08/30/2023). Family History: family history is [...] for re-evaluation. The patient was located in [place] at the time of their visit. Yoel Dangelo APRN [facility] [place] [address] documented in this encounter Miscellaneous Notes * Addendum Note - Yoel Dangelo APRN - 11/30/2023 8:00 AM EDTAddended by: YOEL DANGELO on: 11/30/2023 08:46 AM Modules accepted: Level of Service documented in this encounter Plan of Treatment Upcoming Encounters Date Type Department Care Team (Late st Contact Info) Description 10/31/2024 9:30 AM EST Appointment [place] [address] Mushtaq Murphy APRN 10/31/2024 11:00 AM EST Office Visit Cardiology at [address] [address] Mushtaq Murphy APRN documented as of this encounter Visit Diagnoses Diagnosis Proctalgia fugax Anal spasm Constipation, unspecified constipation type documented in this encounter Care Teams White Washer Piler Relationship Specialty Start Date End Date Yoel Artis APRN [address] [place] [address] PCP - General Internal Medicine 11/18/22 07/29/24 documented as of this encounter
--- OUTSIDE RECORDS SUMMARY | 2024-10-05 10:04 | XMS_ITS | Encounter Summary ---
[place] [address] Care Team Providers Care Store Team Leader Name Role Phone Yoel Artis FREDRICK Primary Care Provider [phone] Encounter Details Date Type Department Care Team (Late st Contact Info) Description 01/16/2024 Interpretation Only [facility] [address] [place] [address] Chaparro Montana MD [address] [place] [address] Social History Tobacco Use Types Packs/Day Years [...] 9:30 AM EST Appointment Non-[place] [address] Mushtaq Murphy APRN 10/31/2024 11:00 AM EST Office Visit Cardiology at [address] [address] Mushtaq Murphy, 1ST PRESSMAN documented as of this encounter Procedures Procedure Name Priority Date/Time Associated Diagnosis Comments XR CHEST ONE VIEW STAT 01/16/2024 4:0 4 PM EDT documented in this encounter Results * XR Chest One View (01/16/2024 4:04 PM EDT) PT CLASS E RAD ADMITDTTM [id number] RAD PT RAD INFO [id number]^Haniss henry^Chaparro RAD EXAM DESC XCXR1^XR Chest 1 View^[facility] WORKSTATION ID [id number] RAD Anatomical Region Laterality Modality Chest N/A [...] administrator that requested your imaging first. ? Narrative [...] first. Electronically signed by: Alexey Winslow MD, [facility]([phone]), at 01/16/2024 4:08 PM Chaparro Montana MD IMG DX ORDERABLES documented in this encounter Visit Diagnoses Not on filedocumented in this encounter Care Teams Store Team Leader Relationship Specialty Start Date End Date Yoel Artis APRN [address] [place] [address] PCP - General Internal Medicine 11/18/22 07/29/24 documented as of this encounter
--- OUTSIDE RECORDS SUMMARY | 2024-10-08 11:19 | XMS_ITS | Encounter Summary ---
[place] [address] Care Team Providers Care Python Django Developer Name Role Phone Alexia Mtz FREDRICK Primary Care Provider [phone] Encounter Details Date Type Department Care Team (Late st Contact Info) Description 09/21/2024 External Results [place] [phone] Social History Tobacco Use Types Packs/Day Years Used Date Smoking Tobacco: Former Cigarettes Smokeless Tobacco: Never Alcohol Use Standard Drinks/Week Comments Not Currently 0 (1 standard drink = 0.6 oz pur e alcohol) [facility] Utilities Answer Date Recorded In [...] time in the past 12 m [facility], were you homeless or living [...] 9:30 AM EST Appointment Non[place] [address] Mushtaq Murphy APRN 10/31/2024 11:00 AM EST Office Visit Cardiology at [address] [address] Mushtaq Murphy APRN documented as of this encounter Procedures Procedure Name Priority Date/Time Associated Diagnosis Comments EEG SCAN Routine 07/29/2024 9:44 AM EST documented in this encounter Results * Scan Doc: EEG (07/29/2024 9:44 AM EST) Historical Provider MD CLANCY MGR SCAN EX T ORDR/RSLT documented in this encounter Visit Diagnoses Not on filedocumented in this encounter Care Teams Python Django Developer Relationship Specialty Start Date End Date Alexia Mtz APRN [address] [place] [id number] PCP - General Family Medicine 11/18/24 documented as of this encounter
--- OUTSIDE RECORDS SUMMARY | 2024-10-08 11:19 | XMS_ITS | Encounter Summary ---
[place] [address] Care Team Providers Care Astronomy Department Chair Name Role Phone Alexia Mtz FREDRICK Primary Care Provider [phone] Encounter Details Date Type Department Care Team (Latest Contact Info) Description 10/01/2024 1:55 PM EST Laboratory Appointment Lab [address] [phone] HFrEF (heart failure with reduced ejection fraction) Social History Tobacco Use Types Packs/Day Years Used Date Smoking Tobacco: Former Cigarettes Smokeless Tobacco: Never Alcohol Use Standard Drinks/Week Comments Not Currently 0 (1 standard drink = 0.6 oz pur e alcohol) [facility] Utilities Answer Date Recorded In the past 12 months has [employer], gas, oil, or water [email or web address] threatened to shut off services in your [...] 9:30 AM EST Appointment Non-Invasive [place] [address] Mushtaq Murphy, GREASER HELPER 10/31/2024 11:00 AM EST Office Visit Cardiology at [address] [address] Mushtaq Murphy, GREASER HELPER documented as of this encounter Procedures Procedure [...] 1:18 PM [facility] Comment:Glucose Concentratio n >=200 mg/dL plus symptoms is consistent with Diabetes Mellitus. Blood Urea Nitrogen 17 10 - 20 mg/dL 10/01/2024 1:18 PM [facility] Creatinine 1.06 0.80 - 1.50 mg/dL 10/01/2024 1:18 PM [facility] Sodium 142 135 - 145 mMol/L 10/01/2024 1:18 PM [facility] Potassium 4.1 3.5 - 5.0 mMol/L 10/01/2024 1:18 PM [facility] Chloride 105 98 - 107 mMol/L 10/01/2024 1:18 PM [facility] Carbon Dioxide 25 22 - 31 mMol/L 10/01/2024 1:18 PM [facility] Anion Gap 12 5 - 15 mMol/L 10/01/2024 1:18 PM [facility] Calcium 9.5 8.5 - 10.5 mg/dL 10/01/2024 1:18 PM [facility] Protein, Total 7.2 6.1 - 8.0 g/dL 10/01/2024 1:18 PM [facility] Albumin 4.3 3.2 - 5.2 g/dL 10/01/2024 1:18 PM [facility] Aspartate Aminotransferase 18 <=39 unit/L 10/01/2024 1:18 PM [facility] Alanine Aminotransferase 18 0 - 55 unit/L 10/01/2024 1:18 PM [facility] Alkaline Phosphatase 94 40 - 130 unit/L 10/01/2024 1:18 PM [facility] Bilirubin, Total 0.4 <=1.3 mg/dL 10/01/2024 1:18 PM [facility] Est Glomerular Filtration Rate - Male 75 mL/min/1. 73 m?? 10/01/2024 1:18 PM EST [facility] Comment: [...] Fasting Status No 10/01/2024 1:18 PM EST [facility] Blood VENOUS BLOOD SPECIMEN / Unknown Venipuncture / Unknown 10/01/2024 12:33 PM EST 10/01/2024 12:38 PM EST Mushtaq Murphy GREASER HELPER CHEMISTRY ORDERABLE S [facility] [place] [address] * Magnesium (10/01/2024 12:33 PM EST) Magnesium 0.94 0.69 - 1.07 mMol/L 10/01/2024 1:18 PM EST [facility] Blood VENOUS BLOOD SPECIMEN / Unknown Venipuncture / Unknown 10/01/2024 12:33 PM EST 10/01/2024 12:38 PM EST Mushtaq Murphy GREASER HELPER CHEMISTRY ORDERABLE S [facility] [place] [address] * (ABNORMAL) pro-Brain Natriuretic Peptide (10/01/2024 12:33 PM EST) NT-proBNP 2,150(H) <=124 pg/mL 10/01/2024 1:18 PM EST [facility] Blood VENOUS BLOOD SPECIMEN / Unknown Venipuncture / Unknown 10/01/2024 12:33 PM EST 10/01/2024 12:38 PM EST Mushtaq Murphy GREASER HELPER CHEMISTRY ORDERABLE S [place] [phone] documented in this encounter Visit Diagnoses Diagnosis HFrEF (heart failure with reduced ejection fraction) documented in this encounter Care Teams Astronomy Department Chair Relationship Specialty Start Date End Date Alexia Mtz APRN [address] [place] [address] PCP - General Family Medicine 07/30/24 documented as of this encounter
--- OUTSIDE RECORDS SUMMARY | 2024-10-08 11:19 | XMS_ITS | Encounter Summary ---
Author Organization [facility] [place] [address] Care Team Providers Care Carpenter'S Helper Name Role Phone Alexia Mtz FREDRICK Primary Care Provider [phone] Encounter Details Date Type Department Care Team (Late st Contact Info) Description 10/02/2024 Telephone Cardiology at [address] [phone] Tre Gibbons, RN Social History Tobacco Use [...] in the past 12 m [facility], were you homeless or living [...] out to Mr. Montoya in response to [employer] message sent by Mushtaq Murphy APRN: I was looking through your chart and would like to increase your spironolactone to a full tab of 25 mg. Mr. Montoya return verbalizes understanding of the above. We also reviewed the telephone sales representative team and I encouraged him to call us anytime, as well as record weight and blood pressure regularly. documented in this encounter Plan of Treatment Upcoming Encounters Date Type Department Care Team (Late st Contact Info) Description 10/31/2024 9:30 AM EST Appointment Non-[place] [address] Mushtaq Murphy APRN 10/31/2024 11:00 AM EST Office Visit Cardiology at [address] [address] Mushtaq Murphy APRN documented as of this encounter Visit Diagnoses Not on filedocumented in this encounter Care Teams Carpenter'S Helper Relationship Specialty Start Date End Date Alexia Mtz, FREDRICK [address] [place] [address] PCP - General Family Medicine 07/30/24 documented as of this encounter
--- OUTSIDE RECORDS SUMMARY | 2024-10-08 11:19 | XMS_ITS | Encounter Summary ---
[place] [address] Care Team Providers Care Technical Support 1 Software Engineer Name Role Phone Alexia Mtz FREDRICK Primary Care Provider [phone] Reason for Referral * Diagnostic Test (Routine) - Authorized Specialty Diagnoses / Procedures Referred By [facility] Referred To Contact Cardiology Diagnoses HFrEF (heart failure with reduced ejection fraction) Procedures Echocardiogram Transthoracic Mushtaq Royal APRN [facility] [place] [address] Referral ID Status Reason Start Date Expiration Date Visits Requested Visits Authorized [id number] Authorized Specialty Service Requested 10/02/2024 10/02/2025 1 1 * Consultation (Routine) - Authorized Specialty Diagnoses / Procedures [facility] Referred To Contact Cardiology Diagnoses HFrEF (heart failure with reduced ejection fraction) ST elevation myocardial infarction involving left anterior descending (LAD) coronary artery Mushtaq Royal APRN [facility] [place] [address] Referral ID Status Reason Start Date Expiration Date Visits Requested Visits Authorized [id number] Authorized Consult, Test & Treat 10/02/2024 10/02/2025 36 36 * Diagnostic Test (Routine) - Closed Specialty Diagnoses / Procedures Referred By Contac t Referred To Contact Cardiology Diagnoses HFrEF (heart failure with reduced ejection fraction) Procedures Echocardiogram Transthoracic Mushtaq Royal APRN [facility] [place] [address] Referral ID Status Reason Start Date Expiration Date V isits Requested Visits Authorized [id number] Closed Specialty Service Requested 10/01/2024 10/01/2025 1 1 * Consultation (Routine) - Authorized Specialty Diagnoses / Procedures Referred By Contac t Referred To Contact Diagnoses HFrEF (heart failure with reduced ejection fraction) NUTRITION Initial MNT Mushtaq Royal APRN Copeland, Jean M, [place] [facility] [place] [address] Referral ID Status Reason Start Date Expiration Date Visits Requested Visits Authorized [id number] Authorized Continuity of Care 10/01/2024 10/01/2025 1 1 Reason for Visit * Consultation (Routine) - Closed Specialty Diagnoses / Procedures Referred By Contac t Referred To Contact Cardiology Diagnoses HFrEF (heart failure with reduced ejection fraction) [facility] S/P D/C acute HFrEF Sanjiv Villagran MD [facility] [place] [address] Mushtaq Royal APRN [facility] [place] [address] Referral ID Status Reason Start Date Expiration Date V isits Requested Visits Authorized [id number] Closed Consult, Test & Treat 08/04/2024 08/04/2025 1 1 Encounter Details Date Type Department Care Team (Late st Contact Info) Description 10/01/2024 10:00 AM EST Office Visit Cardiology at [address] [address] Mushtaq Royal APRN HFrEF (heart [...] in the past 12 m [facility], were you homeless or living [...] clinic for weight gain or any question [phone] documented in this encounter Progress Notes * Mushtaq Royal APRN - 10/01/2024 10:00 AM EST Images from the original note were not included. [facility] Section of Advanced Heart Failure Cardiology and Pulmonary Hypertension [facility] [place] [id number] Name: Korey Bermudez Date: 10/01/2024 Referring provider: Sanjiv Villagran MD [facility] [place] [address] History of Present Illness 74 y.o. male with a past medical history of: Ischemic cardiomyopathy EF 33% CAD STEMI - 07/31/2024 - PCI to LAD HLD HTN BPH Patient was admitted on 07/29/2024 after being airlifted by helicopter to [facility] due tofindings of ST elevation patient had awoken that morning with substernal chest pain with bilateral arm discomfort. Patient reported that his discomfort was aching in character was an 8/10. He was seen at the outside hospital anterior, inferior, and lateral ST elevation on EKG. On arrival to [facility] heunderwent left heart catheterization which showed 100% [...] placed and he was transferred to the [facility] for an initial cardiac index of 1.97 which improved to 2.2 after Impella placement. Patient required hemodynamic support with vasopressors and eventually on dobutamine. Patient remained in the [facility] until downgraded on 08/01/2021. Patient was discharged from [facility] on 08/04/2024 and presents today in the [...] mild AR. MRI Non invasive ischemic evaluation [facility] 07/29/2024: Left main normal and free of disease. LAD, single discrete total occlusion of the proximal segment, left circumflex is normal. Disease, RCA normal and free of disease. Drug-eluting stent to the proximal and distal LAD [facility] 07/29/2024: (prior to impella) RA 16, [...] 9:30 AM EST Appointment [place] [address] Mushtaq Royal APRN 10/31/2024 11:00 AM EST Office Visit Cardiology at [address] [address] Mushtaq Royal APRN Scheduled Orders Name Type [...] 2,150(H) <=124 pg/mL 10/01/2024 1:18 PM EST [facility] Blood VENOUS BLOOD SPECIMEN / Unknown Venipuncture / Unknown 10/01/2024 12:33 PM EST 10/01/2024 12:38 PM EST Mushtaq Royal STILL OPERATOR BRANDY CHEMISTRY ORDERABLE S [facility] [place] [address] * Magnesium (10/01/2024 12:33 PM EST) Magnesium 0.94 0.69 - 1.07 mMol/L 10/01/2024 1:18 PM EST [facility] Blood VENOUS BLOOD SPECIMEN / Unknown Venipuncture / Unknown 10/01/2024 12:33 PM EST 10/01/2024 12:38 PM EST Mushtaq Royal STILL OPERATOR BRANDY CHEMISTRY ORDERABLE S Performing Organization Address City/[facility]/ZIP Co de Phone Number [facility] [place] [address] * Comprehensive metabolic panel Non-fasting (10/01/2024 12:33 PM EST) Glucose 76 65 - 199 mg/dL 10/01/2024 1:18 PM EST [facility] Comment:Glucose Concentratio n >=200 mg/dL plus symptoms is consistent with Diabetes Mellitus. Blood Urea Nitrogen 17 10 - 20 mg/dL 10/01/2024 1:18 PM [facility] Creatinine 1.06 0.80 - 1.50 mg/dL 10/01/2024 1:18 PM [facility] Sodium 142 135 - 145 mMol/L 10/01/2024 1:18 PM [facility] Potassium 4.1 3.5 - 5.0 mMol/L 10/01/2024 1:18 PM [facility] Chloride 105 98 - 107 mMol/L 10/01/2024 1:18 PM [facility] Carbon Dioxide 25 22 - 31 mMol/L 10/01/2024 1:18 PM [facility] Anion Gap 12 5 - 15 mMol/L 10/01/2024 1:18 PM [facility] Calcium 9.5 8.5 - 10.5 mg/dL 10/01/2024 1:18 PM [facility] Protein, Total 7.2 6.1 - 8.0 g/dL 10/01/2024 1:18 PM [facility] Albumin 4.3 3.2 - 5.2 g/dL 10/01/2024 1:18 PM [facility] Aspartate Aminotransferase 18 <=39 unit/L 10/01/2024 1:18 PM [facility] Alanine Aminotransferase 18 0 - 55 unit/L 10/01/2024 1:18 PM [facility] Alkaline Phosphatase 94 40 - 130 unit/L 10/01/2024 1:18 PM [facility] Bilirubin, Total 0.4 <=1.3 mg/dL 10/01/2024 1:18 PM [facility] Est Glomerular Filtration Rate - Male 75 mL/min/1. 73 m?? 10/01/2024 1:18 PM [facility] Foundation Fasting Status No 10/01/2024 1:18 PM [facility] Blood VENOUS BLOOD SPECIMEN / Unknown Venipuncture / Unknown 10/01/2024 12:33 PM EST 10/01/2024 12:38 PM EST Mushtaq Royal STILL OPERATOR BRANDY CHEMISTRY ORDERABLE S [facility] [place] [address] * ECHO LMTD W CONTRAST W LMTD SPEC DOPP COLOR DOPP (10/01/2024 12:15 PM EST) EF 33 [facility] Anatomical Region Laterality Modality Cardiac Other 10/01/2024 11:0 6 AM EST Narrative 10/01/2024 1:22 PM EST [address] [place] [address] ? Echocardiogram Report Name: KOREY BERMUDEZ ? Study Date: 10/01/2024 11:06 AMBP: 119/78 mmHg : 1950 ? Height: 168 cm ? Account: [id number] Age: 74 yrs ? Weight: 62 kg Gender: Male ?BSA: 1.7 m2 Ordering Physician: MUSHTAQ ROYAL Referring Physician: MUSHTAQ ROYAL Performed By: OMERO Baez Reason For Study: Chest pain Exam Location: [facility]. Interpretation Summary Left ventricular systolic function [...] the findings are similar. Procedure Limited - [id number]. Image enhancement Optison was used for left [...] Note Pablo Tam MD - 10/01/2024 [address] [place] [address] Echocardiogram Report Name: KOREY BERUMDEZ Study Date: 1:06 AMBP: 119/78 mmHg : 1950 Height: 168 cm Account: [id number] Age: 74 yrs Weight: 62 kg Gender: Male BSA: 1.7 m2 Ordering Physician: MUSHTAQ ROYAL Referring Physician: MUSHTAQ ROYAL Performed By: OMERO Baez Reason For Study: Chest pain Exam Location: [facility]. Interpretation Summary Left ventricular systolic function [...] 07/30/2024, the findings aresimilar. Procedure Limited - [id number]. Image enhancement Optison was used for left [...] (Bezet) 428 ms MUSE SYSTEM Calculated P Heber 83 degrees MUSE SYSTEM Calculated R Heber 88 degrees MUSE SYSTEM Calculated T Heber 159 degrees MUSE SYSTEM INTERPRETATION Normal sinus rhythm Low voltage QRS 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) T wave abnormality, consider lateral ischemia ACUTE [place] / STEMI Abnormal ECG When compared with [...] fraction) documented in this encounter Care Teams Technical Support 1 Software Engineer Relationship Specialty Start Date End Date Alexia Mtz, FREDRICK [address] [place] [address] PCP - General Family Medicine 07/30/24 documented as of this encounter
--- OUTSIDE RECORDS SUMMARY | 2024-10-08 11:19 | XMS_ITS | Encounter Summary ---
Author Organization [facility] [address] Care Team Providers Care Traffic Operations Manager Name Role Phone [place] FREDRICK Primary Care Provider [phone] Encounter Details Date Type Department Care Team (Late st Contact Info) Description 10/01/2024 Telephone Cardiology at [address] [phone] Chloe Ramos Social History Tobacco Use Types Packs/Day Years Used Date Smoking Tobacco: Former Cigarettes Smokeless Tobacco: Never Alcohol Use Standard Drinks/Week Comments Not Currently 0 (1 standard drink = 0.6 oz pur e alcohol) [facility] Utilities Answer Date Recorded In [...] any time in the past 12 m [facility], were you homeless or living in [...] AM EST Request for records faxed to [facility] at [phone]. documented in this encounter Plan of Treatment Upcoming Encounters Date Type Department Care Team (Late st Contact Info) Description 10/31/2024 9:30 AM EST Appointment Non-[place] [address] Mushtaq Murphy APRN 10/31/2024 11:00 AM EST Office Visit Cardiology at [address] [phone] Mushtaq Murphy APRN documented as of this encounter Visit Diagnoses Not on filedocumented in this encounter Care Teams Traffic Operations Manager Relationship Specialty Start Date End Date Alexia Mtz APRN [address] [place] [address] PCP - General Family Medicine 11/18/24 documented as of this encounter
--- OUTSIDE RECORDS SUMMARY | 2024-10-08 11:19 | XMS_ITS | Encounter Summary ---
[place] [address] Care Team Providers Care Bath Design Sales Consultant Name Role Phone Alexia Mtz Shun ALCALA Primary Care Provider Reason for Referral * Diagnostic Test (Routine) - Closed Specialty Diagnoses / Procedures Referred By Contac t Referred To Contact Cardiology Diagnoses HFrEF (heart failure with reduced ejection fraction) Procedures Echocardiogram Transthoracic Rudolph Royal APRN [facility] [place] [address] Referral ID Status Reason Start Date Expiration Date V isits Requested Visits Authorized [id number] Closed Specialty Service Requested 10/01/2024 10/01/2025 1 1 Reason for Visit * Diagnostic Test (Routine) - Closed Specialty Diagnoses / Procedures Referred By Contac t Referred To Contact Cardiology Diagnoses HFrEF (heart failure with reduced ejection fraction) Procedures Echocardiogram Transthoracic Rudolph Royal APRN [facility] [place] [address] Referral ID Status Reason Start Date Expiration Date V isits Requested Visits Authorized [id number] Closed Specialty Service Requested 10/01/2024 10/01/2025 1 1 Encounter Details Date Type Department Care Team (Latest Contact Info) Description 10/01/2024 11:00 AM EST - 10/01/2024 11:59 PM EST Hospital Encounter Non-In[place] [address] Rudolph Royal APRN HFrEF (heart failure with reduced ejection fraction) Discharge Disposition: Home Social History Tobacco Use Types Packs/Day Years Used Date Smoking Tobacco: Former Cigarettes Smokeless Tobacco: Never Alcohol Use Standard Drinks/Week Comments Not Currently 0 (1 standard drink = 0.6 oz pur e alcohol) [facility] Utilities Answer Date Recorded In the past 12 months has th e electric, gas, oil, or water [employer] threatened to shut off services in your [...] 9:30 AM EST Appointment Non-In[place] [address] Rudolph Royal APRN 10/31/2024 11:00 AM EST Office Visit Cardiology at [address] [address] Rudolph Royal, MANAGER TRANSIT documented as of this encounter Procedures Procedure [...] EST Narrative 10/01/2024 1:22 PM EST [address] [place] [address] ? Echocardiogram Report Name: KOREY BERMUDEZ ? Study Date: 10/01/2024 11:06 AMBP: 119/78 mmHg : 1950 ? Height: 168 cm ? Account: [id number] Age: 74 yrs ? Weight: 62 kg Gender: Male ?BSA: 1.7 m2 Ordering Physician: RUDOLPH ROYAL Referring Physician: RUDOLPH ROYAL Performed By: OMERO Baez Reason For Study: Chest pain Exam Location: [facility]. Interpretation Summary Left ventricular systolic function is [...] the findings are similar. Procedure Limited - [id number]. Image enhancement Optison was used for left [...] Note Pablo Tam MD - 10/01/2024 [address] [place] [id number] Echocardiogram Report Name: KOREY BERMUDEZ Study Date: 1:06 AMBP: 119/78 mmHg : 1950 Height: 168 cm Account: [id number] Age: 74 yrs Weight: 62 kg Gender: Male BSA: 1.7 m2 Ordering Physician: RUDOLPH ROYAL Referring Physician: RUDOLPH ROYAL Performed By: OMERO Baez Reason For Study: Chest pain Exam Location: [facility]. Interpretation Summary Left ventricular systolic function is [...] 07/30/2024, the findings aresimilar. Procedure Limited - [id number]. Image enhancement Optison was used for left [...] mLs documented in this encounter Care Teams Bath Design Sales Consultant Relationship Specialty Start Date End Date Alexia Mtz APRN [address] [place] [address] PCP - General Family Medicine 07/30/24 documented as of this encounter
--- OUTSIDE RECORDS SUMMARY | 2024-10-08 11:19 | XMS_ITS | Encounter Summary ---
Author Organization [facility] [place] [address] Care Team Providers Care Drug Safety Associate Name Role Phone Alexia Mtz FREDRICK Primary Care Provider [phone] Encounter Details Date Type Department Care Team (Latest Contact Info) Description 10/01/2024 Travel Social History Tobacco Use Types Packs/Day Years Used Date Smoking Tobacco: Former Cigarettes Smokeless Tobacco: Never Alcohol Use Standard Drinks/Week Comments Not Currently 0 (1 standard drink = 0.6 oz pur e alcohol) [facility] Utilities Answer Date Recorded In [...] 9:30 AM EST Appointment Non[place] [address] Mushtaq Murphy, FUNCTIONAL MENTAL DISABILITY TEACHER 10/31/2024 11:00 AM EST Office Visit Cardiology at [address] [address] Mushtaq Murphy, FUNCTIONAL MENTAL DISABILITY TEACHER documented as of this encounter Visit Diagnoses Not on filedocumented in this encounter Care Teams Drug Safety Associate Relationship Specialty Start Date End Date Alexia Mtz APRN [address] [place] [id number] PCP - General Family Medicine 07/30/24 documented as of this encounter
--- OUTSIDE RECORDS SUMMARY | 2024-10-08 11:19 | XMS_ITS | Encounter Summary ---
Author Organization [facility] Address [facility] [place] [address] Care Team Providers Care Vba Developer Name Role Phone Alexia Mtz FREDRICK Primary Care Provider [phone] Encounter Details Date Type Department Care Team (Late st Contact Info) Description 10/02/2024 Notes Only Cardiology at [address] [address] Alok Eaton, RD [facility] [place] [address] Social History Tobacco Use Types Packs/Day Years Used Date Smoking Tobacco: Former Cigarettes Smokeless Tobacco: Never Alcohol Use Standard Drinks/Week Comments Not Currently 0 (1 standard drink = 0.6 oz pur e alcohol) [facility] Utilities Answer Date Recorded In the past 12 months has e nothingGrinder, gas, oil, or water [employer] threatened to shut off services in your [...] call-back number to schedule telehealth visit through certified legal secretary specialist: [phone] Option #2. documented in this encounter Plan of Treatment Upcoming Encounters Date Type Department Care Team (Late st Contact Info) Description 10/31/2024 9:30 AM EST Appointment Non-[place] [address] Mushtaq Murphy APRN 10/31/2024 11:00 AM EST Office Visit Cardiology at [address] [address] Mushtaq Murphy APRN documented as of this encounter Visit Diagnoses Not on filedocumented in this encounter Care Teams Vba Developer Relationship Specialty Start Date End Date Alexia Mtz APRN [address] [place] [address] PCP - General Family Medicine 07/30/24 documented as of this encounter
--- OUTSIDE RECORDS SUMMARY | 2024-10-08 11:19 | XMS_ITS | Clinical Summary ---
Author Organization [facility], 1928–[address] [place] [address] Care Team Providers Care Musical Instrument Maker Or Repairer Name Role Phone Alexia Mtz FREDRICK Primary Care Provider [phone] Allergies No known active allergies Medications Medication [...] Team Description 10/02/2024 Notes Only Cardiology at [address] [phone] 10/02/2024 Telephone Cardiology at [address] [address] Tre Gibbons RN 10/01/2024 1:55 PM EST Laboratory Appointment Lab [address] [place] [address] HFrEF (heart failure with reduced ejection fraction) 10/01/2024 11:00 AM EST - 10/01/2024 11:59 PM EST Hospital Encounter [place] [address] Mushtaq Royal APRN HFrEF (heart failure with reduced ejection fraction) Discharge Disposition: Home 10/01/2024 10:00 AM EST Office Visit Cardiology at [address] [address] Mushtaq Royal, FREDRICK HFrEF (heart failure with reduced ejection fraction); ST elevation myocardial infarction involving left anterior descending (LAD) coronary artery 10/01/2024 Telephone Cardiology at [address] [phone] Chloe Ramos 10/01/2024 Travel 09/21/2024 External Results Non-[place] [address] 07/31/2024 4:30 PM EST - 07/31/2024 5:30 PM EST Surgery [place] [address] Maldonado Luis MD CARDIAC CATHETERIZATION 07/29/2024 6:32 PM EST - 07/29/2024 11:59 PM EST Hospital Encounter [facility] at [address] [address] Arvin Becerra MD Discharge Disposition: Home 07/29/2024 12:00 PM EST - 07/29/2024 12:54 PM EST Surgery Tube Station Attendant [place] [phone] Vahe Marvin MD CARDIAC CATHETERIZATION 07/29/2024 11:45 AM EST - 08/04/2024 5:00 PM EST Hospital Encounter Cardiovascular [place] [phone] Vahe Marvin MD Dadekian, MD Keith Richter, MD Eh Galvez Poornima, MD Kostojchin, Anastas, MD Kussaga, Sanjiv Hoffmann MD ST elevation myocardial infarction involving left anterior descending (LAD) coronary artery; HFrEF (heart failure with reduced ejection fraction) Discharge Disposition: Home 07/29/2024 Orders Only Tube Station Attendant [place] [phone] Susannah Watts PA 07/29/2024 Interpretation Only [address] [address] Deondre Ferrera MD 07/29/2024 Notes Only Cardiology [place] [phone] Ivan Hernandez MD 07/29/2024 External Results Emergency Department [place] [phone] 07/28/2024 Interpretation Only [address] [address] Quinten Coffey MD from Last 3 Months [...] = 0.6 oz pur e alcohol) [facility] Utilities Answer Date Recorded [...] 9:30 AM EST Appointment Non[place] [address] Mushtaq Royal, DISTRICT AGENT 10/31/2024 11:00 AM EST Office Visit Cardiology at [address] [address] Mushtaq Royal, DISTRICT AGENT Health Maintenance Due Date Last Done Comments [...] VIEW STAT 07/29/2024 10: 50 AM EST [facility] [place] Routine 07/29/2024 10:13 AM [...] EST 10/01/2024 12:38 PM EST Mushtaq Royal DISTRICT AGENT CHEMISTRY ORDERABLE S Performing Organization Address City/[facility]/ZIP Co de Phone Number [facility] [place] [address] * Magnesium (10/01/2024 12:33 PM EST) Only the most recent of9 resultswithin the time period is included. Pathologist [facility] Magnesium 0.94 0.69 - 1.07 mMol/L 10/01/2024 1:18 PM EST [facility] Blood VENOUS BLOOD SPECIMEN / Unknown Venipuncture / Unknown 10/01/2024 12:33 PM EST 10/01/2024 12:38 PM EST Mushtaq Royal DISTRICT AGENT CHEMISTRY ORDERABLE S [facility] [place] [address] * Comprehensive metabolic panel Non-fasting (10/01/2024 12:33 PM EST) Only the most recent of2 resultswithin the time period is included. Glucose 76 65 - 199 mg/dL 10/01/2024 1:18 PM [facility] Comment:Glucose Concentratio n >=200 mg/dL plus symptoms is consistent with Diabetes Mellitus. Blood Urea Nitrogen 17 10 - 20 mg/dL 10/01/2024 1:18 PM [facility] Creatinine 1.06 0.80 - 1.50 mg/dL 10/01/2024 1:18 PM [facility] Sodium 142 135 - 145 mMol/L 10/01/2024 1:18 PM [facility] Potassium 4.1 3.5 - 5.0 mMol/L 10/01/2024 1:18 PM [facility] Chloride 105 98 - 107 mMol/L 10/01/2024 1:18 PM [facility] Carbon Dioxide 25 22 - 31 mMol/L 10/01/2024 1:18 PM [facility] Anion Gap 12 5 - 15 mMol/L 10/01/2024 1:18 PM [facility] Calcium 9.5 8.5 - 10.5 mg/dL 10/01/2024 1:18 PM [facility] Protein, Total 7.2 6.1 - 8.0 g/dL 10/01/2024 1:18 PM [facility] Albumin 4.3 3.2 - 5.2 g/dL 10/01/2024 1:18 PM [facility] Aspartate Aminotransferase 18 <=39 unit/L 10/01/2024 1:18 PM [facility] Alanine Aminotransferase 18 0 - 55 unit/L 10/01/2024 1:18 PM [facility] Alkaline Phosphatase 94 40 - 130 unit/L 10/01/2024 1:18 PM [facility] Bilirubin, Total 0.4 <=1.3 mg/dL 10/01/2024 1:18 PM EST [facility] Est [...] EST Mushtaq Royal APRN CHEMISTRY ORDERABLE S [facility] [place] [address] * ECHO LMTD W CONTRAST W LMTD SPEC DOPP COLOR DOPP (10/01/2024 12:15 PM EST) EF 33 HEARTLAB SYSTEM Anatomical Region Laterality Modality Cardiac Other 10/01/2024 11:0 6 AM EST Narrative 10/01/2024 1:22 PM EST [address] [place] [address] ? Echocardiogram Report Name: KOREY MONTOYA ? Study Date: 10/01/2024 11:06 AMBP: 119/78 mmHg : 1950 ? Height: 168 cm ? Account: [id number] Age: 74 yrs ? Weight: 62 kg Gender: Male ?BSA: 1.7 m2 Ordering Physician: MUSHTAQ ROYAL Referring Physician: MUSHTAQ ROYAL Performed By: OMERO Baez Reason For Study: Chest pain Exam Location: [facility]. Interpretation Summary Left ventricular systolic function [...] the findings are similar. Procedure Limited - 18695. Image enhancement Optison was used for left [...] Note Pablo Tam MD - 10/01/2024 1 [place] [address] Echocardiogram Report Name: KOREY MONTOYA Study Date: 511:06 AMBP: 119/78 mmHg : 1950 Height: 168 cm Account: [id number] Age: 74 yrs Weight: 62 kg Gender: Male BSA: 1.7 m2 Ordering Physician: MUSHTAQ ROYAL Referring Physician: MUSHTAQ ROYAL Performed By: OMERO Baez Reason For Study: Chest pain Exam Location: [facility]. Interpretation Summary Left ventricular systolic function [...] 07/30/2024, the findings aresimilar. Procedure Limited - 26643. Image enhancement Optison was used for left [...] (Bezet) 428 ms MUSE SYSTEM Calculated P Wayne 83 degrees MUSE SYSTEM Calculated R Wayne 88 degrees MUSE SYSTEM Calculated T Wayne 159 degrees MUSE SYSTEM INTERPRETATION Normal sinus rhythm Low voltage QRS 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) T wave abnormality, consider lateral ischemia ACUTE RI / STEMI Abnormal ECG When [...] 9.50 x10(3)/mc L 08/04/2024 6:39 AM EST [facility] Red Blood Cell 4.28(L) [...] MD HEMATOLOGY ORDERABLE S Performing Organization Address City/State/[facility] Co de Phone Number [facility] [place] [address] * Basic Metabolic Panel (08/04/2024 6:08 AM [...] MD CHEMISTRY ORDERABLES [facility] [place] [address] * POC, GLUCOSE (08/02/2024 7:47 AM EST) [...] TEST O RDERABLES [facility] [place] [address] * Scan Doc: Telemetry Strips (08/02/2024 7:37 [...] CHEMISTRY ORDERABL ES [facility] [place] [address] * (ABNORMAL) Cooximetry, POC (08/01/2024 10:45 AM EST) Only the most recent of2 resultswithin the time period is included. pO2, Coox 32 mmHg 08/01/2024 10:48 AM EST [facility] Hemoglobin, Coox 12.9(L) 13.7 - 16.5 g/dL 08/01/2024 10:48 AM EST [facility] Oxyhemoglobin, Coox 66.7 % 08/01/2024 10:48 AM EST [facility] Carboxyhemoglo bin, Coox 1.1 [...] CARE TEST O RDERABLES Performing Organization Address City/State/[facility] Co de Phone Number [facility] [place] [address] * CARDIAC CATHETERIZATION (07/31/2024 5:53 PM EST) Only the most recent of2 resultswithin the time period is included. Anatomical Region Laterality Modality Other Narrative 08/01/2024 12:37 PM EST ?[facility] ? Cardiac Catheterization/Intervention Report ? Patient Name: Korey Montoya Kyrie. ? Procedure Date: 07/31/2024 ? A #: [id number] ? Primary Physician: Janelle, Maldonado T ? Case #: [id number] ? File Name: [id number] ? Catheterization Order Number: [id number] ? [facility] ? Final Report [place], [place] ? Patient Name: ? Korey P. Montoya ?ID#: ?[id number] ? : ?1950 ? Procedure Date: ? [...] ? Comments: ?Impella removed from the right VIDEO GAME DEVELOPER with deployment of Perclose and ?Angioseal. ??Good [...] Procedure Note Maldonado Luis MD - 08/01/2024 [facility] Cardiac Catheterization/Intervention Report Patient Name: Korey MontoyaToby Procedure Date: 07/31/2024 A #: [id number] Primary Physician: Maldonado Luis Case #: [id number] File Name: [id number] Catheterization Order Number: [id number] [facility] FinalReport [place], [place] Patient Name: Korey Montoya ID#:[id number] :1950 Procedure Date: July 31, 2024 Case [...] was designated as ASA Class IV. The [facility] clinical frailtyscale is 4: Vulnerable. [...] procedures. Comments: Impella removed from the right VIDEO GAME DEVELOPER with deployment of Perclose and Angioseal. Good [...] TEST O RDERABLES [facility] [place] [address] * (ABNORMAL) Hepatic Function Panel (07/31/2024 1:08 AM EST) Albumin 3.1(L) 3.2 - 5.2 g/dL 07/31/2024 1:46 AM [facility] Aspartate Aminotransferase 192(H) <=39 unit/L 07/31/2024 1:46 AM [facility] Alanine Aminotransferase 59(H) 0 - 55 unit/L 07/31/2024 1:46 AM [facility] Alkaline Phosphatase 46 40 - 130 unit/L 07/31/2024 1:46 AM EST [facility] Bilirubin, Total 0.4 <=1.3 mg/dL 07/31/2024 1:46 AM EST [facility] Bilirubin, Direct <0.2 0.0 - 0.3 mg/dL 07/31/2024 1:46 AM EST [facility] Protein, Total 5.0(L) 6.1 - 8.0 g/dL 07/31/2024 1:46 AM EST [facility] Blood VENOUS BLOOD SPECIMEN / Unknown Venipuncture / Unknown 07/31/2024 1:08 AM EST 07/31/2024 1:18 AM EST Arnel Parker MD CHEMISTRY ORDERABLES Performing Organization Address [facility]/ZIP Co de Phone Number [facility] [place] [address] * (ABNORMAL) Phosphorus (07/30/2024 3:08 PM EST) Only the most recent of3 resultswithin the time period is included. Phosphorus 2.1(L) 2.5 - 4.5 mg/dL 07/30/2024 3:58 PM EST [facility] Blood VENOUS BLOOD SPECIMEN / Unknown Venipuncture / Unknown 07/30/2024 3:08 PM EST 07/30/2024 3:12 PM EST Jay Silverio MD CHEMISTRY ORDERABL ES Performing Organization Address City/[facility]/ZIP Co de Phone Number [facility] [place] [address] * ECHO LMTD W CONTRAST W LMTD SPEC DOPP COLOR DOPP (07/30/2024 11:42 AM EST) Anatomical Region Laterality Modality Cardiac Other 07/30/2024 10:2 2 AM EST Narrative 07/30/2024 12:34 PM EST [address] [place] [address] ? Echocardiogram Report Name: KOREY MONTOYA ? Study Date: 07/30/2024 10:22 AMBP: 124/66 mmHg : 1950 ? Height: 168 cm ? Account: [id number] Age: 74 yrs ? Weight: 65 kg Gender: Male ?BSA: 1.7 m2 Ordering Physician: Jay Silverio MD Referring Physician: DEONDRE FERRERA Performed By: OMERO Millan Reason For Study: ST elevation myocardial infarction involving left anterior descending (LAD) coronary artery Interpreting Fellow: Ivan Hernandez. Exam Location: [facility]. Interpretation Summary Left ventricle is [...] Compared to the overnight study by the agronomy professor fellow the impella position is stable. 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 Procedure Limited - 36756. Image enhancement Definity was used for both [...] Note Kathleen Banda MD - 07/30/2024 1 [place] [address] Echocardiogram Report Name: KOREY MONTOYA Kyrie Study Date: 410:22 AMBP: 124/66 mmHg : 1950 Height: 168 cm Account: [id number] Age: 74 yrs Weight: 65 kg Gender: Male BSA: 1.7 m2 Ordering Physician: Jay Silverio MD Referring Physician: DEONDRE FERRERA Performed By: OMERO Millan Reason For Study: ST elevation myocardial infarction involving leftanterior descending (LAD) coronary artery Interpreting Fellow: Ivan Hernandez. Exam Location: [facility]. Interpretation Summary Left ventricle is [...] Compared to the overnight study by the agronomy professor fellow the impella positionis stable. The global left ventricular systolic function has improvedpredominantly via recruitment outside the LAD territory which remains akinetic. Procedure Limited - 73538. Image enhancement Definity was used for both [...] value can be found in the [facility] Laboratory Test Catalog Troponin - [email or web address].testcatalog.org/[email or web address]/[email or web address] Reference: Fourth [place] Definition of Myocardial Infarction. Journal of the [place] [employer] 2018;72:0711-3883 Blood VENOUS BLOOD SPECIMEN / Unknown Venipuncture / Unknown 07/30/2024 8:09 AM EST 07/30/2024 8:26 AM EST Jay Silverio MD CHEMISTRY ORDERABL ES [facility] [place] [address] * Echocardiogram Transthoracic (07/30/2024 1:41 AM EST) Anatomical Region Laterality Modality Cardiac Other 07/30/2024 1:41 AM EST Narrative 07/30/2024 8:23 AM EST [address] [place] [address] ? Echocardiogram Report Name: KOREY MONTOYA ? Study Date: 07/30/2024 01:41 AM : 1950 ? Height: 168 cm Age: 74 yrs ? Weight: 5.9 kg Gender: Male ?BSA: 0.63 m2 Performed By: Beatris Ching MD Reason For Study: STEMI, VT History: ASCVD, HTN, HLD Interpreting Fellow: Beatris Ching. Interpretation Summary This is a limited study performed by a fellow agronomy professor to evaluate for cardiogenic shock with impella [...] study available for comparison. Procedure Limited - 93839. Suboptimal quality. There is sinus bradycardia. Left [...] Note Kathleen Banda MD - 07/30/2024 [address] [place] [address] Echocardiogram Report Name: KOREY MONTOYA Study Date: 07/30/2024 01:41AM : 1950 Height: 168 cm Age: 74 yrs Weight: 5.9 kg Gender: Male BSA: 0.63 m2 Performed By: Beatris Ching MD Reason For Study: STEMI, VT History: ASCVD, HTN, HLD Interpreting Fellow: Beatris Ching. Interpretation Summary This is a limited study performed by a fellow agronomy professor to evaluate forcardiogenic shock with impella in. [...] study available for comparison. Procedure Limited - 91765. Suboptimal quality. There is sinus bradycardia. Left [...] Recheck AB POSITIVE 07/29/2024 10:13 PM EST [facility] Blood VENOUS BLOOD SPECIMEN / Unknown Venipuncture / Unknown 07/29/2024 6:43 PM EST 07/29/2024 7:15 PM EST Jay Silverio MD BLOOD BANK LAB ORD ERABLES [facility] [place] [id number] * Type and screen ([facility]ONG[place]MAGALIE) (07/29/2024 5:56 PM EST) ABORH Type AB POSITIVE 07/29/2024 9:44 PM EST [facility] PATIENT HISTORY Not Found 07/29/2024 9:44 PM EST [facility] Expires at [id number] on: 08/01/2024 07/29/2024 9:44 PM EST [facility] ANTIBODY SCREEN AUTOMATED Negative 07/29/2024 9:44 PM EST [facility] T&S only valid at [facility] 07/29/2024 9:44 PM EST [facility] Blood VENOUS BLOOD SPECIMEN / Unknown Venipuncture / Unknown 07/29/2024 5:56 PM EST 07/29/2024 6:07 PM EST Narrative [facility] - 07/29/2024 9:44 PM EST This Type and Screen result is only valid at the [facility] Jay Silverio MD BLOOD BANK LAB ORD ERABLES Performing Organization Address City/[facility]/ZIP Co de Phone Number [facility] [place] [address] * Blood culture (07/29/2024 4:08 PM EST) Only the most recent of2 resultswithin the time period is included. Blood Culture No growth at 120 hours 08/03/2024 5:01 PM EST [facility] Blood VENOUS BLOOD SPECIMEN / Unknown Venipuncture / Unknown 07/29/2024 4:08 PM EST 07/29/2024 4:15 PM EST Jay Silverio MD MICROBIOLOGY - BLO OD ORDERABLES Performing Organization Address [facility] Co de Phone Number [facility] [place] [place] [address] * XR Chest One View (07/29/2024 2:30 PM EST) Only the most recent of3 resultswithin the time period is included. WORKSTATION ID [id number] [facility] Anatomical Region Laterality Modality Chest N/A Digital [...] have questions please contact the health career development consultant that requested your imaging first. ? Electronically signed by: Chris Candelaria MD, [facility] ([phone]), at 07/29/2024 3:21 PM Narrative 07/29/2024 3:21 [...] who have questions please contactthe health career development consultant that requested your imaging first. Electronically signed by: Chris Candelaria MD, [facility]([phone]), at 07/29/2024 3:21 PM Vahe Marvin MD IMG DX ORDERABLES * TSH [place] (07/29/2024 2:03 PM EST) Thyroid Stimulating Hormone 0.70 0.27 - 4.20 mcIU/mL 07/29/2024 2:52 PM EST [facility] Blood VENOUS BLOOD SPECIMEN / Unknown Venipuncture / Unknown 07/29/2024 2:03 PM EST 07/29/2024 2:14 PM EST Vahe Marvin MD CHEMISTRY ORDERABLES Performing Organization Address [facility]/ZIP Co de Phone Number [facility] [place] [address] * CRP, acute inflammation (07/29/2024 2:03 PM EST) C-Reactive Protein <3.0 <=4.9 mg/L 07/29/2024 2:52 PM EST [facility] Blood VENOUS BLOOD SPECIMEN / Unknown Venipuncture / Unknown 07/29/2024 2:03 PM EST 07/29/2024 2:14 PM EST Vahe Marvin MD CHEMISTRY ORDERABLES Performing Organization Address [facility] Co de Phone Number [facility] [place] [address] * (ABNORMAL) APTT (07/29/2024 2:03 PM EST) Partial Thromboplastin Time >160(HH[facility]) 25 - 37 sec 07/29/2024 2:56 PM EST [facility] Blood VENOUS BLOOD SPECIMEN / Unknown Venipuncture / Unknown 07/29/2024 2:03 PM EST 07/29/2024 2:13 PM EST Vahe Marvin MD HEMATOLOGY ORDERABLE S Performing Organization Address City/[facility]/ZIP Co de Phone Number [facility] [place] [address] * (ABNORMAL) Prothrombin Time (07/29/2024 2:03 PM [...] HEMATOLOGY ORDERABLE S [facility] [place] [address] * Hemoglobin A1c (07/29/2024 2:03 PM EST) [...] into estimated average glucose values. ??Diabetes Care 2008:31(8):3002-3634. Additional resources are available on the ADA website (diabetes.org). Vahe Marvin MD CHEMISTRY ORDERABLES [facility] [place] [address] * Lipid Panel (Reflex Direct LDL) (07/29/2024 2:03 PM EST) [facility] Cholesterol, Total 133 mg/dL 07/29/2024 2:52 [...] 07/29/2024 2:03 PM EST 07/29/2024 2:14 PM [facility] - 07/29/2024 2:52 PM EST [...] ACC/AHA Guidelines (most recently Rolf et al. [facility] 06/15/22): * For individuals with atherosclerotic [...] MD CHEMISTRY ORDERABLES [facility] [place] [address] * (ABNORMAL) Blood Gas, Venous POC (07/29/2024 [...] CARE TEST O RDERABLES Performing Organization Address City/State/[facility] Co de Phone Number [facility] [place] [address] * (ABNORMAL) BLOOD GAS, POC (07/29/2024 12:46 [...] TEST O RDERABLES [facility] [place] [id number] * External Cardiology Result (07/29/2024 10:13 AM EST) Anatomical Region Laterality Modality Other Historical Provider EXTERNAL CARDIOLO GY RESULT * Scan Doc: EEG (07/29/2024 9:44 AM EST) Historical Provider MEDIA MGR SCAN EX T ORDR/RSLT * COLONOSCOPY (08/30/2023 10:57 AM EST) COLONOSCOPY [facility] Endoscopy Procedure Date: 08/30/2023 10:57 AM ? Patient Name: Korey Montoya ? Date of : 1950 ? Age: 73 ? Order #: [id number] ? Instrument Name: [id number] ? Procedure: ? Colonoscopy Indications: ? Rectal [...] preparation was evaluated ? using the BBPS ([place] Bowel ? Preparation Scale) with scores of: [...] 08/30/2023 10:5 7 AM EST Yoel Artis DISTRICT AGENT GENERAL SURGICAL ORD ERABLES PROVATION from Last 3 Months or Most Recently Relevant to Health Maintenance Advance Directives * Attempt Cardiopulmonary Resuscitation - Inpatient (Latest Code Status on File) Date Activated Date Inactivated Comments 07/29/2024 2:01 PM 08/04/2024 7:34 PM Question Answer Comments Code Status decision made by: Patient Content of discussion: pre-arrest limitations Care Teams Musical Instrument Maker Or Repairer Relationship Specialty Start Date End Date Alexia Mtz APRN [address] [place] [address] PCP - General Family Medicine 07/30/24
--- OUTSIDE RECORDS SUMMARY | 2024-10-08 11:20 | XMS_ITS | Encounter Summary ---
Author Organization [facility] Address [facility] [place] [address] Care Team Providers Care Pharmacology Associate Name Role Phone Yoel Artis FREDRICK Primary Care Provider [phone] Reason for Visit * Auth/Cert (Routine) Specialty Diagnoses / Procedures Referred By Theodore t Referred To Contact Diagnoses [facility] Procedures [place] [employer] [place] [employer] [facility] Referral ID Status Reason Start Date Expiration Date Visits Re quested Visits Authorized [id number] 1 1 Encounter Details Date Type Department Care Team (Latest Contact Info) Description 07/29/2024 6:32 PM EST - 07/29/2024 11:59 PM [facility] Hospital Encounter [facility] at [address] [phone] Arvin Becerra MD [facility] [address] [place] [address] Discharge Disposition: Home Social History Tobacco Use Types Packs/Day Years Used Date Smoking Tobacco: Former Cigarettes Smokeless Tobacco: Never Alcohol Use Standard Drinks/Week Comments Not Currently 0 (1 standard drink = 0.6 oz pur e alcohol) [facility] Utilities Answer Date Recorded In the past [...] any time in the past 12 m [facility], were you homeless or living in a half-way (including now)? No 07/30/2024 DH IPV Inpatient [...] evening. 04/17/2023 08/04/2024 nitroGLYcerin (NITROLINGUAL) 400 mcg/spray [place], Non-AerosolIndications: Proctalgia fugax,Fecal smearing,Constipation, unspecified constipation type 1 spray to anus for proctalgia fugax as needed, not to exceed once daily 12 g 06/01/2023 08/04/2024 documented as of this encounter Plan of Treatment Upcoming Encounters Date Type Department Care Team (Late st Contact Info) Description 10/31/2024 9:30 AM EST Appointment Non[place] [phone] Mushtaq Murphy APRN 10/31/2024 11:00 AM EST Office Visit Cardiology at [address] [phone] Mushtaq Murphy APRN documented as of this encounter Visit Diagnoses Not on filedocumented in this encounter Care Teams Pharmacology Associate Relationship Specialty Start Date End Date Yoel Artis APRN [address] [place] [id number] PCP - General Internal Medicine 11/18/22 07/29/24 documented as of this encounter
--- OUTSIDE RECORDS SUMMARY | 2024-10-08 11:20 | XMS_ITS | Encounter Summary ---
Author Organization [facility] Address [facility] [place] [address] Care Team Providers Care Paint Roller Cover Machine Setter Name Role Phone BreaksAlexia shell Shun ALCALA Primary Care Provider [phone] Reason for Referral * Consultation (Routine) - Closed Specialty Diagnoses / Procedures Referred By Conteleazar t Referred To Contact Cardiology Diagnoses HFrEF (heart failure with reduced ejection fraction) [facility] S/P D/C acute HFrEF Alex Small MD [facility] [place] [address] [place] [address] Mushtaq Murphy APRN [facility] [place] [address] [place] [address] Referral ID Status Reason Start Date Expiration Date V isits Requested Visits Authorized [id number] Closed Consult, Test & Treat 08/04/2024 08/04/2025 1 1 * Consultation (Routine) - Pending Review Specialty Diagnoses / Procedures Referred By Contac t Referred To Contact Cardiology Diagnoses ST elevation myocardial infarction involving left anterior descending (LAD) coronary artery Yrn Ward MD [facility] [place] [address] Cardiac Rehab, [facility] [address] [place] [address] Referral ID Status Reason Start Date Expiration Date Visits Requested Visits Authorized [id number] Pending Review Consult, Test & Treat 01/31/2025 36 36 Reason for Visit * Auth/Cert (Routine) Specialty Diagnoses / Procedures Referred By Contac t Referred To Contact Diagnoses STEMI (ST elevation myocardial infarction) STEMI Procedures ER IPI Vahe Marvin MD [facility] [place] [address] [facility] Referral ID Status Reason Start Date Expiration Date Visits Re quested Visits Authorized [id number] 1 1 Encounter Details Date Type Department Care Team (Latest Contact Info) Description 07/29/2024 11:45 AM EST - 08/04/2024 5:00 PM EST Hospital [place] [id number] Vahe Marvin MD [facility] [place] [address] Aubree Silverio MD [facility] [place] [address] Krystal Parker MD [facility] [place] [address] Bridgette Stauffer MD [facility] [place] [address] Yrn Ward MD [facility] [place] [address] Alex Small MD [facility] [place] [address] ST elevation myocardial infarction involving left anterior descending (LAD) coronary artery; HFrEF (heart failure with reduced ejection fraction) Discharge Disposition: Home Social History Tobacco Use Types Packs/Day Years Used Date Smoking Tobacco: Former Cigarettes Smokeless Tobacco: Never Alcohol Use Standard Drinks/Week Comments Not Currently 0 (1 standard drink = 0.6 oz pur e alcohol) [facility] Utilities Answer Date Recorded In the [...] any time in the past 12 [facility], were you homeless or living [...] Korey Montoya Patient Age: 74 y.o. Language: Kittitian Race: White Ethnicity: Not nor Admit date: [...] please contact your inpatient physician through the [facility] Assistant Operations Manager . Issues afterhours and on weekends [...] EKG. Patient transferred via air ambulance to [facility] on 07/29 for LHC and [...] EKG. Was transferred via air ambulance to [facility] for further management and LHC demonstrated 100% occlusion. No significant RCA, LMCA, or LCX disease. LOW placed in LAD with some residual distal disease meriting placement of overlapping distal stent. TTE showed apical akinesis and inferior hypokinesis with EF 20%. RHC showed elevated filling pressures. Impella placed and P-level 6 at time of transfer to [facility]. CI initially 1.97, improved to 2.2 [...] the next year. Access was via right TRAUMA THERAPIST and this sitewas clean, dry and [...] for Chest pain. Replaces: nitroGLYcerin 400 mcg/spray [place], Non-Aerosol 0.4 mg Quantity: 90 tablet Refills: [...] Refills: 0 STOPPED Medications nitroGLYcerin 400 mcg/spray [place], Non-Aerosol Commonly known as: NITROLINGUAL Replaced by: [...] of one year. After this time, your mica washer gluer will determine if you need to continue [...] away. Stay on the phone. The emergency monorail operator will tell you what to do. [...] appointments: During 8am-5pm Tuesday through Tuesday call [phone] to speak with a nurse in the cardiology clinic All other times call [phone] and ask to speak to the screen tacker concert singer. Follow up Appointments: PCP Alexia Mtz, FORMING MACHINE UPKEEP MECHANIC [phone]. Please call to establish a follow up appointment within 1-2 weeks of discharge. Cardiology. Referral to heart failure has been sent. General Instructions None Future Appointments and Orders Future Orders Complete By Expires Referral to Cardiac Rehab [[id number] Custom] As directed Process Instructions: If no [...] of one year. After this time, your mica washer gluer will determine if you need to continue [...] away. Stay on the phone. The emergency monorail operator will tell you what to do. [...] appointments: During 8am-5pm Tuesday through Tuesday call [phone] to speak with a nurse in the cardiology clinic All other times call [phone] and ask to speak to the screen tacker concert singer. Follow up Appointments: PCP Alexia Mtz, FORMING MACHINE UPKEEP MECHANIC [phone]. Please call to establish a follow up [...] EKG. Patient transferred via air ambulance to [facility] on 07/29 for LHC and LOW to LAD for 100% occlusion Social History: Pt lives with his in a 1 level home with 2 NAOMI. 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 He [...] Total time: 35 (tef) minutes Time IN/OUT: [id number] ZAIDA DUBOSE, PT Pager: [phone] Physical Therapy Inpatient Rehabilitation Department * Yrn Ward MD - 08/03/2024 10:38 AM EST CV HOSPITALIST 2 - [facility] DAILY PROGRESS NOTE Page [phone] to reach a provider 04/04 Admit Date: [...] Compared to the overnight study by the concert singer fellow the impella position is stable. 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 [facility] 07/29/24 Conclusions: * One vessel coronary artery disease (LAD) * Mild pulmonary hypertension * Elevated pulmonary capillary wedge pressure * Successful stent insertion of the proximal LAD lesion * See Dual Antiplatelet (DAPT) Recommendations above * Successful impella placement for cardiogenic shock. Telemetry: I have personally reviewed and interpreted the telemetry from the last 24 hours. [facility] Assessment: ASSESSMENT: Korey Montoya is a 74 y.o. male w/ PMH of hypertension, HLD, and BPH who presents for chief concern of chest pain after being found to have ST elevations on EKG. Patient transferred via air ambulance to [facility] on 07/29 for LHC and [...] to be determined OT: PCP Alexia Mtz, FORMING MACHINE UPKEEP MECHANIC [phone] * Zaida Dubose, PT - 08/02/2024 2:08 PM EST Physical Therapy Evaluation Patient profile: Korey Montoya is a 74 y.o. male w/ PMH of hypertension, HLD, and BPH who presents for chief concern of chest pain after being found to have ST elevations on EKG. Patient transferred via air ambulance to [facility] on 07/29 for LHC and LOW to LAD for 100% occlusion Social History: Pt lives with his in a 1 level home with 2 NAOMI. 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 He [...] Total time: 37 (eval) minutes Time IN/OUT: [id number] ZAIDA DUBOSE PT Pager: [phone] Physical Therapy Inpatient Rehabilitation Department * Gagan [...] EKG. Patient transferred via air ambulance to [facility] on 07/29 for LHC and LOW to LAD for 100% occlusion. TTE showed apical akinesis and inferior hypokinesis with EF 20%. RHC showed elevated filling pressures. Impella placed and P-level 6 at time of transfer to [facility]. CI initially 1.97, improved to 2.2 After impella. Received about 3 L of fluid during procedural course. Patient initially required norepinephrine 30, epinephrine 10, and vasopressin 0.04 for hemodynamic support, which was weaned upon arrival to [facility] to norepinephrine 20and levo 0.04 N [...] PCP: Alexia Mtz APRN PCP phone number: [phone] Date of Admission: 07/29/2024 ( Hospital Day 4 days ) Attending:Bridgette Stauffer MD ID: Korey Montoya is a 74 y.o. male w/ PMH of hypertension, HLD, and BPH on Hospital Day4 for chief concern of chest pain after being found to have ST elevations on EKG. Patient transferred via air ambulance to [facility] on 07/29 for LHC and [...] 07/29/24 1621 PHART 7.48* 7.44 7.38 7.37 [id number] 29* 29* 34* 36 PO2ART 71* 109* 141* 71* XWV7HEH 20.6 19.4* 19.5* 20.4 VBG (Venous Blood Gas) Recent Labs 07/29/24 1401 PHVEN 7.30* PO2VEN 39 UNA8FDY 20.1* Mixed Venous Sat No results for input(s): G1HQRG3 in the last 168 hours. Objective: Vitals [...] 07/29/24 1621 PHART 7.48* 7.44 7.38 7.37 IRD8NQQ 29* 29* 34* 36 PO2ART 71* 109* 141* 71* XXD3RGA 20.6 19.4* 19.5* 20.4 VBG (Venous Blood Gas) Recent Labs 07/29/24 1401 PHVEN 7.30* PO2VEN 39 CGE8QCG 20.1* Mixed Venous Sat No results for input(s): R6QUDY3 in the last 168 hours. Microbiology: Microbiology Results (Last 30 days) Procedure Component Value Units Date/Time Blood culture [[id number]] Collected: 07/29/241607 Lab Status: Preliminary result Specimen: Blood, Venous Updated: 08/01/241700 Blood Culture No growth at 72 hours Blood culture [[id number]] Collected: 07/29/241607 Lab Status: Preliminary result Specimen: Blood, Venous Updated: 08/01/241700 Blood Culture No growth at 72 hours Imaging: Results for orders placed or performed during the hospital encounter of 07/29/24 XR Chest One View (Exam End: 07/29/2024 2:30 PM) Result Value WORKSTATION ID [id number] Impression 1. No pulmonary edema. 2. No pleural effusion. 3. No pneumothorax. Thank you for letting us participate in the care of this patient. If you are a health care provider and have any questions regarding this report, please contact the number below. For patients who have questions please contact the health healthcare analyst that requested your imaging first. ( 07/30/24) [...] Compared to the overnight study by the concert singer fellow the impella position is stable. The [...] EKG. Patient transferred via air ambulance to [facility] on 07/29 for LHC and [...] today). Transfer to floor. Krystal Parker MD, [facility], [facility] Staff Ship Purser face and fill packer * Gagan Catherine MD - 08/01/2024 11:12 [...] EKG. Patient transferred via air ambulance to [facility] on 07/29 for LHC and [...] PCP: Alexia Mtz APRN PCP phone number: [phone] Date of Admission: 07/29/2024 ( Hospital Day 3 days ) Attending:Krystal Parker MD ID: Korey Montoya is a 74 y.o. male w/ PMH of hypertension, HLD, and BPH on Hospital Day3 for chief concern of chest pain after being found to have ST elevations on EKG. Patient transferred via air ambulance to [facility] on 07/29 for LHC and [...] 07/29/24 1621 PHART 7.48* 7.44 7.38 7.37 JDA2ERS 29* 29* 34* 36 PO2ART 71* 109* 141* 71* YTW0VOY 20.6 19.4* 19.5* 20.4 VBG (Venous Blood Gas) Recent Labs 07/29/24 1401 PHVEN 7.30* PO2VEN 39 XNM0XMT 20.1* Mixed Venous Sat No results for input(s): Z5PWUN6 in the last 168 hours. PA Catheter [...] 07/29/24 1621 PHART 7.48* 7.44 7.38 7.37 [id number] 29* 29* 34* 36 PO2ART 71* 109* 141* 71* ZYI6OES 20.6 19.4* 19.5* 20.4 VBG (Venous Blood Gas) Recent Labs 07/29/24 1401 PHVEN 7.30* PO2VEN 39 ELO2OMK 20.1* Mixed Venous Sat No results for input(s): F1UYWP1 in the last 168 hours. Microbiology: Microbiology Results (Last 30 days) Procedure Component Value Units Date/Time Blood culture [[id number]] Collected: 07/29/241607 Lab Status: Preliminary result Specimen: Blood, Venous Updated: 07/31/24 170 Blood Culture No growth at 48 hours Blood culture [[id number]] Collected: 07/29/241607 Lab Status: Preliminary result Specimen: Blood, Venous Updated: 07/31/24 170 Blood Culture No growth at 48 hours Imaging: Results for orders placed or performed during the hospital encounter of 07/29/24 XR Chest One View (Exam End: 07/29/2024 2:30 PM) Result Value WORKSTATION ID [id number] Impression 1. No pulmonary edema. 2. No pleural effusion. 3. No pneumothorax. Thank you for letting us participate in the care of this patient. If you are a health care provider and have any questions regarding this report, please contact the number below. For patients who have questions please contact the health healthcare analyst that requested your imaging first. ( 07/30/24) [...] Compared to the overnight study by the concert singer fellow the impella position is stable. The [...] EKG. Patient transferred via air ambulance to [facility] on 07/29 for LHC and [...] Susannah Ornelas MD Internal Medicine, PGY-1 Cardiology, [facility] 08/01/24 7:13 AM CARDIOLOGY STAFF NOTE [...] him; questions answered. Krystal Parker MD, FAC, [facility] Staff Ship Purser face and fill packer * Krystal Parker MD - 07/31/2024 1:06 [...] ILL WITH THESE DIAGNOSES BEING MANAGED BY [facility] TEAM: # Anterior STEMI, late-presenting # [...] EKG. Patient transferred via air ambulance to [facility] on 07/29 for LHC and LOW to LAD for 100% occlusion. TTE showed apical akinesis and inferior hypokinesis with EF 20%. RHC showed elevated filling pressures. Impella placed and P-level 6 at time of transfer to [facility]. CI initially 1.97, improved to 2.2 After impella. Received about 3 L of fluid during procedural course. Patient initially required norepinephrine 30, epinephrine 10, and vasopressin 0.04 for hemodynamic support, which was weaned upon arrival to [facility] to norepinephrine 20and levo 0.04 N [...] PCP: Alexia Mtz APRN PCP phone number: [phone] Date of Admission: 07/29/2024 ( Hospital Day 2 days ) Attending:Krystal Parker MD ID: Korey Montoya is a 74 y.o. male w/ PMH of hypertension, HLD, and BPH on Hospital Day2 for chief concern of chest pain after being found to have ST elevations on EKG. Patient transferred via air ambulance to [facility] on 07/29 for LHC and [...] 0057 07/29/24 1621 PHART 7.44 7.38 7.37 KVD7QOE 29* 34* 36 PO2ART 109* 141* 71* HSJ4RHJ 19.4* 19.5* 20.4 VBG (Venous Blood Gas) Recent Labs 07/29/24 1401 PHVEN 7.30* PO2VEN 39 UID8ONV 20.1* Mixed Venous Sat No results for input(s): B4UTWJ6 in the last 168 hours. PA Catheter [...] 0057 07/29/24 1621 PHART 7.44 7.38 7.37 ZCA4UCP 29* 34* 36 PO2ART 109* 141* 71* XAZ0CDQ 19.4* 19.5* 20.4 VBG (Venous Blood Gas) Recent Labs 07/29/24 1401 PHVEN 7.30* PO2VEN 39 BSX8LRP 20.1* Mixed Venous Sat No results for input(s): Y1BNMU9 in the last 168 hours. Microbiology: Microbiology Results (Last 30 days) Procedure Component Value Units Date/Time Blood culture [[id number]] Collected: 07/29/241607 Lab Status: Preliminary result Specimen: Blood, Venous Updated: 07/30/241700 Blood Culture No Growth at 18-24 hrs. Blood culture [[id number]] Collected: 07/29/241607 Lab Status: Preliminary result Specimen: Blood, Venous Updated: 07/30/241700 Blood Culture No Growth at 18-24 hrs. Imaging: Results for orders placed or performed during the hospital encounter of 07/29/24 XR Chest One View (Exam End: 07/29/2024 2:30 PM) Result Value WORKSTATION ID [id number] Impression 1. No pulmonary edema. 2. No pleural effusion. 3. No pneumothorax. Thank you for letting us participate in the care of this patient. If you are a health care provider and have any questions regarding this report, please contact the number below. For patients who have questions please contact the health healthcare analyst that requested your imaging first. ( 07/30/24) [...] Compared to the overnight study by the concert singer fellow the impella position is stable. The [...] EKG. Patient transferred via air ambulance to [facility] on 07/29 for LHC and [...] work to optimize volume status while continuing ijexvao-sfwcfm-hssnqgakkx therapies at this time. Obtain comprehensive TTE. [...] EKG. Patient transferred via air ambulance to [facility] on 07/29 for LHC and LOW to LAD for 100% occlusion. TTE showed apical akinesis and inferior hypokinesis with EF 20%. RHC showed elevated filling pressures. Impella placed and P-level 6 at time of transfer to [facility]. CI initially 1.97, improved to 2.2 After impella. Received about 3 L of fluid during procedural course. Patient initially required norepinephrine 30, epinephrine 10, and vasopressin 0.04 for hemodynamic support, which was weaned upon arrival to [facility] to norepinephrine 20and levo 0.04 N [...] PCP: Yoel Artis APRN PCP phone number: [phone] Date of Admission: 07/29/2024 ( Hospital Day 1 day ) Attending:Aubree Silverio MD ID: Korey Montoya is a 74 y.o. male w/ PMH of hypertension, HLD, and BPH on Hospital Day1 for chief concern of chest pain after being found to have ST elevations on EKG. Patient transferred via air ambulance to [facility] on 07/29 for LHC and [...] 0057 07/29/24 1621 PHART 7.44 7.38 7.37 AXZ3XNF 29* 34* 36 PO2ART 109* 141* 71* DYQ1YZN 19.4* 19.5* 20.4 VBG (Venous Blood Gas) Recent Labs 07/29/24 1401 PHVEN 7.30* PO2VEN 39 ZOR2RGL 20.1* Lactate ( Last 12 hours) 1.3 >> 1.2 Mixed Venous Sat No results for input(s): W7DHNE0 in the last 168 hours. PA Catheter [...] 0057 07/29/24 1621 PHART 7.44 7.38 7.37 KJR8PUA 29* 34* 36 PO2ART 109* 141* 71* LTO9RDG 19.4* 19.5* 20.4 VBG (Venous Blood Gas) Recent Labs 07/29/24 1401 PHVEN 7.30* PO2VEN 39 ZYF4BKR 20.1* Mixed Venous Sat No results for input(s): R0ESPH7 in the last 168 hours. Microbiology: Microbiology Results (Last 30 days) Procedure Component Value Units Date/Time Blood culture [[id number]] Collected: 07/29/24 160 Lab Status: In process Specimen: Blood, Venous Updated: 07/29/24 162 Blood culture [[id number]] Collected: 07/29/241607 Lab Status: In process Specimen: Blood, Venous Updated: 07/29/24 161 Imaging: Results for orders placed or performed during the hospital encounter of 07/29/24 XR Chest One View (Exam End: 07/29/2024 2:30 PM) Result Value WORKSTATION ID [id number] Impression 1. No pulmonary edema. 2. No pleural effusion. 3. No pneumothorax. Thank you for letting us participate in the care of this patient. If you are a health care provider and have any questions regarding this report, please contact the number below. For patients who have questions please contact the health healthcare analyst that requested your imaging first. Medications Scheduled [...] EKG. Patient transferred via air ambulance to [facility] on 07/29 for LHC and [...] Susannah Ornelas MD Internal Medicine, PGY-1 Cardiology, [facility] 07/30/24 10:41 AM documented in this [...] EKG. Patient transferred via air ambulance to [facility] on 07/29 for LHC and [...] EKG. Was transferred via air ambulance to [facility] for further management and [facility] demo nstrated 100% occlusion. No significant [...] performed by Brandan Mcgovern MD [facility] ENDOSCOPY Significant Family History: Family History Problem [...] mouth. Past Week nitroGLYcerin (NITROLINGUAL) 400 mcg/spray [place], Non-Aerosol 1 spray to anus for proctalgia [...] 3.5 guiding catheter and a 3.5 Fr [place] [facility] 20 Mhz using Manual pullback. Imaging [...] A premounted 3.00 x 22 mm Jeison [place] (LOW) was deployed with a maximum inflation [...] A premounted 3.00 x 08 mm Jeison [place] (LOW) was deployed with a maximum inflation [...] a limited study performed by a fellow concert singer to evaluate for cardiogenic shock with impella [...] Compared to the overnight study by the concert singer fellow the impella position is stable. The [...] EKG. Patient transferred via air ambulance to [facility] on 07/29 for LHC and [...] PCP: Yoel Artis APRN PCP phone number: [phone] Date of Admission: 07/29/2024 ( Hospital Day 0 days ) Attending:Aubree Silverio MD ID: Korey Montoya is a 74 y.o. male w/ PMH of hypertension, HLD, and BPH who presents for chief concern of chest pain after being found to have ST elevations on EKG. Patient transferred via air ambulance to [facility] on 07/29 for LHC and LOW to LAD for 100% occlusion. HPI: Korey Montoya is a 74 y.o. male w/ PMH of hypertension, HLD, and BPH who presents for chief concern of chest pain after being found to have ST elevations on EKG. Patient transferred via air ambulance to [facility] on 07/29 for LHC and [...] EKG. Was transferred via air ambulance to [facility] for further management and LHC demonstrated 100% occlusion. No significant RCA, LMCA, or LCX disease. LOW placed in LAD with some residual distal disease meriting placement of overlapping distal stent. TTE showed apical akinesis and inferior hypokinesis with EF 20%. RHC showed elevated filling pressures. Impella placed and P-level 6 at time of transfer to [facility]. CI initially 1.97, improved to 2.2 [...] performed by Brandan Mcgovern MD [facility] ENDOSCOPY Family History Family History Problem Relation [...] Blood Gas) No results for input(s): PHART, YXC6IZX, PO2ART, FLI5QEN, LACTATEVEN, ZCA8JGK, PFRATIOART2 in the last 168 hours. VBG (Venous Blood Gas) Recent Labs 07/29/24 1401 PHVEN 7.30* PO2VEN 39 ZOK5TCS 20.1* Mixed Venous Sat No results for input(s): Y7TUDS3 in the last 168 hours. PA Catheter [...] Blood Gas) No results for input(s): PHART, XZK4FTO, PO2ART, SHD1FQB, LACTATEVEN, WRD0QWT, PFRATIOART2 in the last 168 hours. VBG (Venous Blood Gas) Recent Labs 07/29/24 1401 PHVEN 7.30* PO2VEN 39 QEY0XVJ 20.1* Mixed Venous Sat No results for input(s): D5HWCH3 in the last 168 hours. Microbiology: Microbiology [...] EKG. Patient transferred via air ambulance to [facility] on 07/29 for [facility]. Found to have 100% occlusion of LAD for which he underwent LOW to LAD.Otherwise no other significant vessel disease. Fahad is currently hemodynamically tenuous but improving upon admission to [facility], requiring hemodynamic support with norepinephrine and vasopressin at time of admission along with mechanical support with Impella device. Reassuringly, he demonstrates decreasing pressor requirements since admission to [facility], with epinephrine completely weaned. He does [...] Bernardo Amos MD Internal Medicine, PGY-3 Cardiology, [facility] 07/29/24 3:14 PM Cardiology Attending Note [...] MD, FACP, FACC Section of Cardiovascular Medicine [facility] Psych [employer] hardware design engineer [facility] [employer] [facility] This patient meets or has met [...] to the planned procedure. Hand Hygiene: The carbon rod inserter did perform hand hygiene prior to [...] ease. Good wave form. Ivan Hernandez MD Instructor [employer] Associated attestation - Rolando Yeh MD - [...] MEDICARE Payor: AAR MANAGED MEDICARE / [facility] / Product [...] of Discharge: 08/04/2024 Gaby Wong RN, CM [phone] * Initial Assessments - Char Meza OT - 08/03/2024 10:00 AM EST Occupational Therapy Evaluation Patient profile: Korey Montoya is a 74 y.o. male admitted on 07/29/2024 w/ PMH of hypertension, HLD, and BPH who presents for chief concern of chest pain after being found to have ST elevations onEKG. Patient transferred via air ambulance to [facility] on 07/29 for LHC and LOW to LAD for 100% occlusion. Past Medical History: Diagnosis Date ADHD HLD (hyperlipidemia) HTN (hypertension) Tremor Past Surgical History: Procedure Laterality Date HAND SURGERY PRO COLONOSCOPY, REMV LESN, SNARE N/A 08/30/2023 COLONOSCOPY, POLYPECTOMY, REMOVAL LESION BY SNARE (WRVU 4.57) performed by Brandan Mcgovern MD [facility] ENDOSCOPY Social History: Patient lives with his [...] evaluation only Total Minutes, Occupational Therapy: 14 ([id number] (evaluation)) 2017 OT Evaluation Code Rationale: Diagnosis [...] and measurable assessment of functional outcome. Pager: [phone] Char Meza OT 08/03/2024 Occupational Therapy Rehabilitation [...] (Interventions Implemented as Appropriate) Flowsheets (Taken 08/01/2024 9038) Outcome Summary: A+O, no pain. NSR. MAP [...] Procedure Note: Patient Name: Korey Montoya : [id number] MR#: [id number] Case Date: 07/31/2024 Assistant Operations Manager: Surgeons and Role: * Maldonado Luis MD - Primary * Quinten Charles PA - Physician Scagliola Mechanic Preoperative diagnosis: shock, impella Postoperative diagnosis: * same * Procedure(s) performed: Impella removal form right TRAUMA THERAPIST Access: Right TRAUMA THERAPIST A time-out was conducted prior to [...] days) Any patient receiving care in [place] must abide by [place] law. The hierarchy [...] The agent with financial power of criminal defense attorney or a conservator appointed in [...] homeless or living in a correction (including now)?: No In the past 12 months has the [employer], [employer], or water [employer] threatened to shut off services in your [...] Mailing Address: [address] [place] [address] Physical Address: [address] [place], [place] Social & Family Supports: All [...] points: Addiction likely Health/Prescription Coverage: Primary Insurance: [facility] Work[employer] MEDICARE Payor: [facility] MEDICARE / Plan: AARP RPPO MANAGED MEDICARE COMPLETE / Product Type: *No Product type* / Secondary Insurance: N/A ; Prescription Coverage: Yes Preferred Pharmacy: [address] [address] [place] Status: Patient is a : No Primary Care Provider confirmed: Alexia Mtz, FORMING MACHINE UPKEEP MECHANIC [phone] Patient/Caregiver Goals of Treatment: return home Potential [...] 6:25 PM EST 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 CXR and EKG completed. Impella [...] Procedure Note: Patient Name: Korey Montoya : [id number] MR#: [id number] Case Date: 07/29/2024 Assistant Operations Manager: Surgeons and Role: * Vahe Marvin MD - Primary * Susannah Watts PA - Physician Scagliola Mechanic Preoperative diagnosis: STEMI Postoperative diagnosis: * STEMI, LAD Artery * * Cardiogenic Shock * Procedure(s) performed: [facility] Coronary angiogram Stent insertion coronary IVUS coronary Venous line insert RH Dilworth Colette Catheter Vascular closure device Ventricular assist [...] x 22 mm to 14 deonna JEISON [place] with LIZ 3 flow. Residual distal disease at distal stent, overlapping distal stent was inserted with 3.0 x 8 mm JEISON [place]. Systolic's in the 80's sustained. Patient re [...] 9:30 AM EST Appointment Non-[place] [address] Mushtaq Murphy APRN 10/31/2024 11:00 AM EST Office Visit Cardiology at [address] [phone] Mushtaq Murphy, FREDRICK Scheduled Orders [...] 0.40 x10(3)/mc L 08/04/2024 6:39 AM EST [facility] Basophil % 0.4 % [...] ORDERABLE S [facility] [place] [address] * Magnesium (08/04/2024 6:08 AM EST) Pathologist [facility] Magnesium 0.85 0.69 - 1.07 mMol/L 08/04/2024 7:07 AM [facility] Blood VENOUS BLOOD SPECIMEN / Unknown Venipuncture / Unknown 08/04/2024 6:08 AM EST 08/04/2024 6:19 AM EST Bridgette Stauffer MD CHEMISTRY ORDERABLES [facility] [place] [address] * Basic Metabolic Panel (08/04/2024 6:08 AM [...] CHEMISTRY ORDERABLES [facility] [place] [id number] * (ABNORMAL) CBC (with Diff) (08/03/2024 5:16 [...] ORDERABLE S [facility] [place] [address] * Magnesium (08/03/2024 5:16 AM EST) Pathologist [facility] Magnesium 0.89 0.69 - 1.07 mMol/L 08/03/2024 5:56 AM [facility] Blood VENOUS BLOOD SPECIMEN / Unknown Venipuncture / Unknown 08/03/2024 5:16 AM EST 08/03/2024 5:23 AM EST Bridgette Stauffer MD CHEMISTRY ORDERABLES [facility] [place] [address] * (ABNORMAL) Basic Metabolic Panel (08/03/2024 5:16 AM EST) Pathologist [facility] Glucose 98 65 - 199 mg/dL 08/03/2024 5:56 AM [facility] Comment:Glucose Concentratio n >=200 mg/dL plus symptoms is consistent with Diabetes Mellitus. Blood Urea Nitrogen 16 10 - 20 mg/dL 08/03/2024 5:56 AM [facility] Creatinine 0.85 0.80 - 1.50 mg/dL 08/03/2024 5:56 AM [facility] Sodium 137 135 - 145 mMol/L 08/03/2024 5:56 AM [facility] Potassium 4.5 3.5 - 5.0 mMol/L 08/03/2024 5:56 AM [facility] Chloride 106 98 - 107 mMol/L 08/03/2024 5:56 AM [facility] Carbon Dioxide 21(L) 22 - 31 mMol/L 08/03/2024 5:56 AM [facility] Anion Gap 10 5 - 15 mMol/L 08/03/2024 5:56 AM [facility] Calcium 8.3(L) 8.5 - 10.5 mg/dL 08/03/2024 5:56 AM [facility] Est Glomerular Filtration Rate - Male 92 mL/min/1. 73 m?? 08/03/2024 5:56 AM EST [facility] CHEMISTRY ORDERABLES Performing Organization Address [facility]/ZIP Co de Phone Number [facility] [place] [address] * POC, GLUCOSE (08/02/2024 7:47 AM EST) [...] O RDERABLES [facility] [place] [address] * (ABNORMAL) CBC (with Diff) (08/02/2024 4:20 AM EST) White Blood Cell 8.51 4.00 - 9.50 x10(3)/mc L 08/02/2024 4:50 AM EST [facility] Red Blood Cell 4.41(L) 4.58 - 5.54 x10(6)/mc L 08/02/2024 4:50 AM [facility] Hemoglobin 12.2(L) 13.7 - 16.5 g/dL 08/02/2024 4:50 AM [facility] Hematocrit 35.8(L) 40.5 - 48.5 [...] ORDERABLE S [facility] [place] [address] * Magnesium (08/02/2024 4:20 AM EST) Magnesium 0.79 0.69 - 1.07 mMol/L 08/02/2024 5:06 AM [facility] Blood VENOUS BLOOD SPECIMEN / Unknown Venipuncture / Unknown 08/02/2024 4:20 AM EST 08/02/2024 4:37 AM EST Bridgette Stauffer MD CHEMISTRY ORDERABLES [facility] [place] [address] * (ABNORMAL) Basic Metabolic Panel (08/02/2024 4:20 [...] CHEMISTRY ORDERABLES Performing Organization Address [facility]/ZIP Co de Phone Number [facility] [place] [address] * Potassium (08/01/2024 8:39 PM EST) [facility] Potassium 4.0 3.5 - 5.0 mMol/L 08/01/2024 9:21 PM EST [facility] Blood VENOUS BLOOD SPECIMEN / Unknown Venipuncture / Unknown 08/01/2024 8:39 PM EST 08/01/2024 8:51 PM EST Aubree Silverio MD CHEMISTRY ORDERABL ES Performing Organization Address [facility] Co de Phone Number [facility] [place] [address] * POC, GLUCOSE (08/01/2024 8:35 PM EST) [...] O RDERABLES Performing Organization Address [facility] Co de Phone Number [facility] [place] [address] * POC, GLUCOSE (08/01/2024 4:55 PM EST) Glucometer, POC 99 65 - 199 mg/dL 08/01/2024 4:56 PM EST [facility] Comment:Supplemental ranges: <140 mg/dL before meals <180 mg/dL all other times of the day. Blood CAPILLARY BLOOD / Unknown 08/01/2024 4:55 PM EST 08/01/2024 4:56 PM EST Krystal Parker MD POINT OF CARE TEST O JOSH Performing Organization Address City/[facility] Co de Phone Number [facility] [place] [address] * POC, GLUCOSE (08/01/2024 12:42 PM EST) [...] O JOSH Performing Organization Address [facility] Co de Phone Number [facility] [place] [address] * (ABNORMAL) Cooximetry, POC (08/01/2024 10:45 AM [...] AM EST 08/01/2024 10:48 AM EST Krystal aPrker MD POINT OF CARE TEST O JOSH Performing Organization Address [facility] Co de Phone Number [facility] [place] [address] * Potassium (08/01/2024 8:20 AM EST) Pathologist [facility] Potassium 4.0 3.5 - 5.0 mMol/L 08/01/2024 10:17 AM EST [facility] Blood ARTERIAL BLOOD / Unknown Venipuncture / Unknown 08/01/2024 8:20 AM EST 08/01/2024 8:30 AM EST Aubree Silverio MD CHEMISTRY ORDERABL ES Performing Organization Address [facility] de Phone Number [facility] [place] [address] * POC, GLUCOSE (08/01/2024 7:44 AM EST) Glucometer, POC 86 65 - 199 mg/dL 08/01/2024 7:44 AM EST [facility] Comment:Supplemental ranges: <140 mg/dL before meals <180 mg/dL all other times of the day. Blood CAPILLARY BLOOD / Unknown 08/01/2024 7:44 AM EST 08/01/2024 7:44 AM EST Krystal Parker MD POINT OF CARE TEST O RDERASHAY Performing Organization Address [facility] Co de Phone Number [facility] [place] [address] * (ABNORMAL) CBC (with Diff) (08/01/2024 4:18 AM EST) White Blood Cell 8.51 4.00 - 9.50 x10(3)/mc L 08/01/2024 4:53 AM [facility] Red Blood Cell 4.12(L) 4.58 [...] ORDERABLE S [facility] [place] [address] * Magnesium (08/01/2024 4:18 AM EST) Magnesium 0.74 0.69 - 1.07 mMol/L 08/01/2024 5:00 AM [facility] Blood VENOUS BLOOD SPECIMEN / Unknown Venipuncture / Unknown 08/01/2024 4:18 AM EST 08/01/2024 4:29 AM EST Bridgette Stauffer MD CHEMISTRY ORDERABLES [facility] [place] [address] * (ABNORMAL) Basic Metabolic Panel (08/01/2024 4:18 [...] CHEMISTRY ORDERABLES Performing Organization Address [facility] Co de Phone Number [facility] [place] [address] * POC, GLUCOSE (07/31/2024 8:41 PM EST) [facility] Signature Glucometer, POC 73 65 - 199 mg/dL 07/31/2024 8:41 PM EST [facility] Comment:Supplemental ranges: <140 mg/dL before meals <180 mg/dL all other times of the day. Blood CAPILLARY BLOOD / Unknown 07/31/2024 8:41 PM EST 07/31/2024 8:41 PM EST Krystal Parker MD POINT OF CARE TEST O RDERABLES Performing Organization Address [facility] Co de Phone Number [facility] [place] [address] * CARDIAC CATHETERIZATION (07/31/2024 5:53 PM EST) Anatomical Region Laterality Modality Other Narrative 08/01/2024 12:37 PM EST ?[facility] ? Cardiac Catheterization/Intervention Report ? Patient Name: Korey Montoya. ? Procedure Date: 07/31/2024 ? A #: [id number] ? Primary Physician: Janelle, Maldonado T ? Case #: [id number] ? File Name: [id number] ? Catheterization Order Number: [id number] ? [facility] ? Final Report [place], [place] ? Patient Name: ? Korey P. Montoya ?ID#: ?[id number] ? : ?1950 ? Procedure Date: ? [...] ? Comments: ?Impella removed from the right TRAUMA THERAPIST with deployment of Perclose and ?Angioseal. [...] Procedure Note Maldonado Luis MD - 08/01/2024 [facility] Cardiac Catheterization/Intervention Report Patient Name: Korey Montoya Procedure Date: 07/31/2024 A #: [id number] Primary Physician: Maldonado Luis Case #: [id number] File Name: [id number] Catheterization Order Number: [id number] [facility] FinalReport [place], [place] Patient Name: Korey Montoya ID#:[id number] :1950 Procedure Date: July 31, 2024 Case [...] was designated as ASA Class IV. The [facility] clinical frailtyscale is 4: Vulnerable. Diagnostic Tests: [...] procedures. Comments: Impella removed from the right TRAUMA THERAPIST with deployment of Perclose and Angioseal. [...] * POC, GLUCOSE (07/31/2024 11:04 AM EST) [facility] Glucometer, POC 82 65 - 199 mg/dL 07/31/2024 11:04 AM EST [facility] Comment:Supplemental ranges: <140 mg/dL before meals <180 mg/dL all other times of the day. Blood CAPILLARY BLOOD / Unknown 07/31/2024 11:04 AM EST 07/31/2024 11:04 AM EST Krystal Parker MD POINT OF CARE TEST O RDERABLES [facility] [place] [address] * (ABNORMAL) Blood Gas, Arterial POC (07/31/2024 8:29 AM EST) Pathologist [facility] pH, Arterial 7.48(H) 7.35 - 7.45 07/31/2024 8:30 AM EST [facility] PCO2, Arterial 29(L) 35 - 45 mmHg 07/31/2024 8:30 AM EST [facility] PO2, [...] CARE TEST O JOSH Performing Organization Address City/[facility] Co de Phone Number [facility] [place] [address] * POC, GLUCOSE (07/31/2024 7:47 AM EST) [facility] Signature Glucometer, POC 82 65 - 199 mg/dL 07/31/2024 7:53 AM EST [facility] Comment:Supplemental ranges: <140 mg/dL before meals <180 mg/dL all other times of the day. Blood CAPILLARY BLOOD / Unknown 07/31/2024 7:47 AM EST 07/31/2024 7:53 AM EST Krystal Parker MD POINT OF CARE TEST O JOSH Performing Organization Address [facility] Co de Phone Number [facility] [place] [address] * (ABNORMAL) CBC (with Diff) (07/31/2024 1:08 AM EST) White Blood Cell 10.25(H) 4.00 - 9.50 x10(3)/mc L 07/31/2024 1:28 AM EST [facility] Red Blood Cell 4.13(L) 4.58 - 5.54 x10(6)/mc L 07/31/2024 1:28 AM EST [facility] Hemoglobin 11.2(L) 13.7 - 16.5 g/dL 07/31/2024 1:28 AM EST [facility] Hematocrit 33.9(L) 40.5 - [...] 0.90 x10(3)/mc L 07/31/2024 1:28 AM EST [facility] Eos % 0.1 % 07/31/2024 1:28 AM [facility] Eos Absolute <0.04 0.00 - 0.40 x10(3)/mc L 07/31/2024 1:28 AM EST [facility] Basophil % 0.3 % 07/31/2024 1:28 AM [facility] Baso Absolute <0.04 0.00 - 0.10 x10(3)/mc L 07/31/2024 1:28 AM [facility] Immature Gran % 0.2 % 1:28 AM [facility] Immature Gran Absolute <0.04 0.00 - 0.04 x10(3)/mc L 07/31/2024 1:28 AM [facility] Blood VENOUS BLOOD SPECIMEN / Unknown Venipuncture / Unknown 07/31/2024 1:08 AM EST 07/31/2024 1:18 AM EST Bridgette Stauffer MD HEMATOLOGY ORDERABLE S [facility] [place] [address] * Magnesium (07/31/2024 1:08 AM EST) Magnesium 0.89 0.69 - 1.07 mMol/L 07/31/2024 1:46 AM EST [facility] Blood VENOUS BLOOD SPECIMEN / Unknown Venipuncture / Unknown 07/31/2024 1:08 AM EST 07/31/2024 1:18 AM EST Bridgette Stauffer MD CHEMISTRY ORDERABLES [facility] [place] [address] * (ABNORMAL) Basic Metabolic Panel (07/31/2024 1:08 AM EST) Glucose 97 65 - 199 mg/dL 07/31/2024 1:46 AM [facility] Comment:Glucose Concentratio n >=200 mg/dL plus symptoms is consistent with Diabetes Mellitus. Blood Urea Nitrogen 11 10 - 20 mg/dL 07/31/2024 1:46 AM [facility] Creatinine 0.96 0.80 - 1.50 mg/dL 07/31/2024 1:46 AM [facility] Sodium 140 135 - 145 mMol/L 07/31/2024 1:46 AM [facility] Potassium 4.1 3.5 - 5.0 mMol/L 07/31/2024 1:46 AM [facility] Chloride 110(H) 98 - 107 [...] CHEMISTRY ORDERABLES Performing Organization Address [facility] Co de Phone Number [facility] [place] [address] * (ABNORMAL) Hepatic Function Panel (07/31/2024 1:08 [...] Parker MD CHEMISTRY ORDERABLES Performing Organization Address City/[facility]/ZIP Co de Phone Number [facility] [place] [address] * POC, GLUCOSE (07/30/2024 8:03 PM EST) Glucometer, POC 86 65 - 199 mg/dL 07/30/2024 8:03 PM [facility] Comment:Supplemental ranges: <140 mg/dL before meals <180 mg/dL all other times of the day. Blood CAPILLARY BLOOD / Unknown 07/30/2024 8:03 PM EST 07/30/2024 8:03 PM EST Krystal Parker MD POINT OF CARE TEST O RDERABLES Performing Organization Address City/[facility]/ZIP Co de Phone Number [facility] [place] [address] * Potassium (07/30/2024 8:03 PM EST) Potassium 3.8 3.5 - 5.0 mMol/L 07/30/2024 9:13 PM EST [facility] Blood VENOUS BLOOD SPECIMEN / Unknown Venipuncture / Unknown 07/30/2024 8:03 PM EST 07/30/2024 8:22 PM EST Aubree Silverio MD CHEMISTRY ORDERABL ES Performing Organization Address [facility] Co de Phone Number [facility] [place] [address] * POC, GLUCOSE (07/30/2024 6:23 PM EST) Glucometer, POC 93 65 - 199 mg/dL 07/30/2024 6:24 PM EST [facility] Comment:Supplemental ranges: <140 mg/dL before meals <180 mg/dL all other times of the day. Blood CAPILLARY BLOOD / Unknown 07/30/2024 6:23 PM EST 07/30/2024 6:24 PM EST Krystal Parker MD POINT OF CARE TEST O RDERABLES Performing Organization Address City/[facility]/ZIP Co de Phone Number [facility] [place] [address] * POC, GLUCOSE (07/30/2024 5:08 PM EST) [...] O RDERABLES Performing Organization Address [facility] Co de Phone Number [facility] [place] [address] * (ABNORMAL) Phosphorus (07/30/2024 3:08 PM EST) Phosphorus 2.1(L) 2.5 - 4.5 mg/dL 07/30/2024 3:58 PM EST [facility] Blood VENOUS BLOOD SPECIMEN / Unknown Venipuncture / Unknown 07/30/2024 3:08 PM EST 07/30/2024 3:12 PM EST Aubree Silverio MD CHEMISTRY ORDERABL ES Performing Organization Address [facility] Co de Phone Number [facility] [place] [address] * Magnesium (07/30/2024 3:08 PM EST) Magnesium 0.90 0.69 - 1.07 mMol/L 07/30/2024 3:58 PM EST [facility] Blood VENOUS BLOOD SPECIMEN / Unknown Venipuncture / Unknown 07/30/2024 3:08 PM EST 07/30/2024 3:12 PM EST Aubree Silverio MD CHEMISTRY ORDERABL ES Performing Organization Address [facility] Co de Phone Number [facility] [address] * (ABNORMAL) Basic Metabolic Panel (07/30/2024 3:08 PM EST) Glucose 105 65 - 199 mg/dL 07/30/2024 4:17 PM EST [facility] Comment:Glucose Concentratio n >=200 mg/dL plus symptoms is consistent with Diabetes Mellitus. Blood Urea Nitrogen 13 10 - 20 mg/dL 07/30/2024 4:17 PM EST [facility] Creatinine 1.01 0.80 - 1.50 mg/dL 07/30/2024 4:17 PM EST [facility] Sodium 141 135 - 145 mMol/L 07/30/2024 4:17 PM [facility] Potassium 3.4(L) 3.5 - 5.0 mMol/L 07/30/2024 4:17 PM EST [facility] Chloride 109(H) 98 - 107 mMol/L 07/30/2024 4:17 PM [facility] Carbon Dioxide 21(L) 22 - 31 mMol/L 07/30/2024 4:17 PM [facility] Anion Gap 11 5 - 15 mMol/L 07/30/2024 4:17 PM [facility] Calcium 7.9(L) 8.5 - 10.5 mg/dL 07/30/2024 4:17 PM EST [facility] Est [...] ORDERABL ES [facility] [address] * ECHO LMTD W CONTRAST W LMTD SPEC DOPP COLOR DOPP (07/30/2024 11:42 AM EST) Anatomical Region Laterality Modality Cardiac Other 07/30/2024 10:2 2 AM EST Narrative 07/30/2024 12:34 PM EST [address] [place] [id number] ? Echocardiogram Report Name: KOREY MONTOYA ? Study Date: 07/30/2024 10:22 AMBP: 124/66 mmHg : 1950 ? Height: 168 cm ? Account: [id number] Age: 74 yrs ? Weight: 65 kg Gender: Male ?BSA: 1.7 m2 Ordering Physician: Aubree Silverio MD Referring Physician: CHAPARRO FERRERA Performed By: OMERO Millan Reason For Study: ST elevation myocardial infarction involving left anterior descending (LAD) coronary artery Interpreting Fellow: Ivan Hernandez. Exam Location: [facility]. Interpretation Summary Left ventricle [...] Compared to the overnight study by the concert singer fellow the impella position is stable. 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 Procedure Limited - 85785. Image enhancement Definity was used for both [...] Note Kathleen Banda MD - 07/30/2024 [address] [place] [address] Echocardiogram Report Name: KOREY MONTOYA Study Date: 410:22 AMBP: 124/66 mmHg : 1950 Height: 168 cm Account: [id number] Age: 74 yrs Weight: 65 kg Gender: Male BSA: 1.7 m2 Ordering Physician: Aubree Silverio MD Referring Physician: CHAPARRO FERRERA Performed By: OMERO Millan Reason For Study: ST elevation myocardial infarction involving leftanterior descending (LAD) coronary artery Interpreting Fellow: Ivan Hernandez. Exam Location: [facility]. Interpretation Summary Left ventricle [...] Compared to the overnight study by the concert singer fellow the impella positionis stable. The global left ventricular systolic function has improvedpredominantly via recruitment outside the LAD territory which remains akinetic. Procedure Limited - 04665. Image enhancement Definity was used for both [...] POC, GLUCOSE (07/30/2024 11:17 AM EST) Pathologist [facility] Glucometer, POC 97 65 - 199 mg/dL 07/30/2024 11:17 AM EST [facility] Comment:Supplemental ranges: <140 mg/dL before meals <180 mg/dL all other times of the day. Blood CAPILLARY BLOOD / Unknown 07/30/2024 11:17 AM EST 07/30/2024 11:17 AM EST Aubree Silverio MD POINT OF CARE TEST ORDERABLES [facility] [place] [address] * (ABNORMAL) Blood Gas, Arterial POC (07/30/2024 8:16 AM EST) pH, Arterial 7.44 7.35 - 7.45 07/30/2024 8:17 AM EST [facility] PCO2, Arterial 29(L) 35 - 45 mmHg 07/30/2024 8:17 AM [facility] PO2, Arterial 109(H) 85 - 104 mmHg 07/30/2024 8:17 AM [facility] Bicarbonate, Arterial 19.4(L) 20.0 - [...] - 1.33 mmol/L 07/30/2024 8:17 AM EST [facility] Blood ARTERIAL BLOOD / Unknown 07/30/2024 8:16 AM EST 07/30/2024 8:17 AM EST Aubree Silverio MD POINT OF CARE TEST ORDERABLES [facility] [place] [address] * (ABNORMAL) Troponin - Single (07/30/2024 8:09 [...] troponin value can be found in the [facility] Test Catalog Troponin - https://[email or web address]/catalogs/565/files/62051 Reference: Fourth Clare Definition of Myocardial Infarction. Journal of the [place] [employer] 2018;72:0450-8054 Blood VENOUS BLOOD SPECIMEN / Unknown Venipuncture / Unknown 07/30/2024 8:09 AM EST 07/30/2024 8:26 AM EST Aubree Silverio MD CHEMISTRY ORDERABL ES Performing Organization Address City/[facility]/ZIP Co de Phone Number [facility] [place] [address] * POC, GLUCOSE (07/30/2024 7:40 AM EST) [facility] Glucometer, POC 111 65 - 199 mg/dL 07/30/2024 7:40 AM EST [facility] Comment:Supplemental ranges: <140 mg/dL before meals <180 mg/dL all other times of the day. Blood CAPILLARY BLOOD / Unknown 07/30/2024 7:40 AM EST 07/30/2024 7:40 AM EST Aubree Silverio MD POINT OF CARE TEST ORDERABLES Performing Organization Address [facility] Co de Phone Number [facility] [place] [place] [address] * (ABNORMAL) CBC (with Diff) (07/30/2024 2:11 AM EST) [facility] White Blood Cell 11.25(H) 4.00 - [...] % 0.2 % 07/30/2024 2:33 AM EST [facility] Baso Absolute <0.04 0.00 - 0.10 x10(3)/mc L 07/30/2024 2:33 AM EST [facility] Immature Gran % 0.4 % 2:33 AM EST [facility] Immature Gran Absolute 0.05(H) 0.00 - 0.04 x10(3)/mc L 07/30/2024 2:33 AM EST [facility] Blood VENOUS BLOOD SPECIMEN / Unknown Venipuncture / Unknown 07/30/2024 2:11 AM EST 07/30/2024 2:22 AM EST Bridgette Stauffer MD HEMATOLOGY ORDERABLE S [facility] [place] [address] * Magnesium (07/30/2024 2:11 AM EST) Pathologist [facility] Magnesium 1.01 0.69 - 1.07 mMol/L 07/30/2024 2:51 AM EST [facility] Blood VENOUS BLOOD SPECIMEN / Unknown Venipuncture / Unknown 07/30/2024 2:11 AM EST 07/30/2024 2:22 AM EST Bridgette Stauffer MD CHEMISTRY ORDERABLES [facility] [place] [address] * (ABNORMAL) Basic Metabolic Panel (07/30/2024 2:11 AM EST) Glucose 190 65 - 199 mg/dL 07/30/2024 2:51 AM EST [facility] Comment:Glucose Concentratio n >=200 mg/dL plus symptoms is consistent with Diabetes Mellitus. Blood Urea Nitrogen 15 10 - 20 mg/dL 07/30/2024 2:51 AM EST [facility] Creatinine 0.88 0.80 - 1.50 mg/dL 07/30/2024 2:51 AM EST [facility] Sodium 135 135 - 145 mMol/L 07/30/2024 2:51 AM EST [facility] Potassium 4.9 3.5 - 5.0 mMol/L 07/30/2024 2:51 AM [facility] Chloride 105 98 - 107 mMol/L 07/30/2024 2:51 AM [facility] Carbon Dioxide 19(L) 22 - 31 mMol/L 07/30/2024 2:51 AM EST [facility] Anion Gap 11 5 [...] CHEMISTRY ORDERABLES [facility] [place] [place] [address] * (ABNORMAL) Cooximetry, POC (07/30/2024 1:00 AM [...] [facility] Co de Phone Number [facility] [place] [place] [address] * (ABNORMAL) Blood Gas, Arterial POC (07/30/2024 [...] TEST ORDERABLES [facility] [place] [place] [address] * (ABNORMAL) Troponin - Single (07/29/2024 10:31 PM EST) Pathologist [facility] [...] troponin value can be found in the [facility] Laboratory Test Catalog Troponin - [email or web address]/catalogs/565/files/26878 Reference: Fourth Clare Definition of Myocardial Infarction. Journal of the [place] [employer] 2018;72:0077-9627 Blood VENOUS BLOOD SPECIMEN / Unknown Venipuncture / Unknown 07/29/2024 10:31 PM EST 07/29/2024 10:36 PM EST Yrn Ward MD CHEMISTRY ORDERABL ES [facility] [place] [address] * Potassium (07/29/2024 8:11 PM EST) Pathologist [facility] Potassium 4.1 3.5 - 5.0 mMol/L 07/29/2024 8:52 PM EST [facility] Blood VENOUS BLOOD SPECIMEN / Unknown Venipuncture / Unknown 07/29/2024 8:11 PM EST 07/29/2024 8:16 PM EST Aubree Silverio MD CHEMISTRY ORDERABL ES Performing Organization Address [facility]/ZIP Co de Phone Number [facility] [place] [address] * (ABNORMAL) Troponin - Single (07/29/2024 8:11 [...] troponin value can be found in the [facility] Laboratory Test Catalog Troponin - https://[email or web address].org/catalogs/565/files/52030 Reference: Fourth Clare Definition of Myocardial Infarction. Journal of the [place] [employer]iology 2018;72:6440-9892 Blood VENOUS BLOOD SPECIMEN / Unknown Venipuncture / Unknown 07/29/2024 8:11 PM EST 07/29/2024 8:16 PM EST Aubree Silverio MD CHEMISTRY ORDERABL ES [facility] [place] [place] [address] * (ABNORMAL) Phosphorus (07/29/2024 8:11 PM EST) Phosphorus 2.1(L) 2.5 - 4.5 mg/dL 07/29/2024 8:52 PM EST [facility] Blood VENOUS BLOOD SPECIMEN / Unknown Venipuncture / Unknown 07/29/2024 8:11 PM EST 07/29/2024 8:16 PM EST Aubree Silverio MD CHEMISTRY ORDERABL ES Performing Organization Address [facility] Co de Phone Number [facility] [place] [place] [address] * POC, GLUCOSE (07/29/2024 8:09 PM EST) [facility] Signature Glucometer, POC 142 65 - 199 mg/dL 07/29/2024 8:09 PM EST [facility] Comment:Supplemental ranges: <140 mg/dL before meals <180 mg/dL all other times of the day. Blood CAPILLARY BLOOD / Unknown 07/29/2024 8:09 PM EST 07/29/2024 8:09 PM EST Aubree Silverio MD POINT OF CARE TEST ORDERABLES Performing Organization Address [facility] Co de Phone Number [facility] [place] [place] [address] * ABORH RECHECK (07/29/2024 6:43 PM EST) ABORH Recheck AB POSITIVE 07/29/2024 10:13 PM EST [facility] Blood VENOUS BLOOD SPECIMEN / Unknown Venipuncture / Unknown 07/29/2024 6:43 PM EST 07/29/2024 7:15 PM EST Aubree Silverio MD BLOOD BANK LAB ORD ERABLES Performing Organization Address City/[facility]/ZIP Co de Phone Number [facility] [place] [address] * POC, GLUCOSE (07/29/2024 5:57 PM EST) [facility] Glucometer, POC 166 65 - 199 mg/dL 07/29/2024 5:57 PM EST [facility] Comment:Supplemental ranges: <140 mg/dL before meals <180 mg/dL all other times of the day. Blood CAPILLARY BLOOD / Unknown 07/29/2024 5:57 PM EST 07/29/2024 5:57 PM EST Aubree Silverio MD POINT OF CARE TEST ORDERABLES [facility] [place] [address] * Type and screen ([facility]/CGP/MAGALIE) (07/29/2024 5:56 PM EST) [facility] ABORH Type AB POSITIVE 07/29/2024 9:44 PM EST [facility] PATIENT HISTORY Not Found 07/29/2024 9:44 PM EST [facility] Expires at [id number] on: 08/01/2024 07/29/2024 9:44 PM EST [facility] ANTIBODY SCREEN AUTOMATED Negative 07/29/2024 9:44 PM EST [facility] T&S only valid at [facility] 07/29/2024 9:44 PM EST [facility] Blood VENOUS BLOOD SPECIMEN / Unknown Venipuncture / Unknown 07/29/2024 5:56 PM EST 07/29/2024 6:07 PM EST Narrative [facility] - 07/29/2024 9:44 PM EST This Type and Screen result is only valid at the [facility] Hospital Aubree Silverio MD BLOOD BANK LAB ORD ERABLES [facility] [place] [address] * (ABNORMAL) Troponin - Single (07/29/2024 4:52 PM EST) [facility] Troponin-T, High Sensitivity >10,000(H ) <=22 [...] troponin value can be found in the [facility] Laboratory Test Catalog Troponin - [email or web address].[email or web address]/catalogs/565/files/77858 Reference: Fourth Clare Definition of Myocardial Infarction. Journal of the [place] [employer]iology 2018;72:8128-8447 Blood VENOUS BLOOD SPECIMEN / Unknown Venipuncture / Unknown 07/29/2024 4:52 PM EST 07/29/2024 4:57 PM EST Aubree Silverio MD CHEMISTRY ORDERABL ES [facility] [place] [address] * EKG 12 Lead (07/29/2024 4:21 PM EST) Ventricular rate 72 BPM MUSE SYSTEM Atrial Rate 72 BPM MUSE SYSTEM P-R Interval 168 ms MUSE SYSTEM QRS Duration 82 ms MUSE SYSTEM Q-T Interval 392 ms MUSE SYSTEM QTC Calculated (Bezet) 429 ms MUSE SYSTEM Calculated P [place] 71 degrees MUSE SYSTEM Calculated R [place] 77 degrees MUSE SYSTEM Calculated T [place] 28 degrees MUSE SYSTEM INTERPRETATION Sinus rhythm [...] TEST ORDERABLES [facility] [place] [address] * POC, GLUCOSE (07/29/2024 4:19 PM EST) Glucometer, POC 185 65 - 199 mg/dL 07/29/2024 4:19 PM [facility] Comment:Supplemental ranges: <140 mg/dL before meals <180 mg/dL all other times of the day. Blood CAPILLARY BLOOD / Unknown 07/29/2024 4:19 PM EST 07/29/2024 4:19 PM EST Aubree Silverio MD POINT OF CARE TEST ORDERABLES Performing Organization Address [facility] Co de Phone Number [facility] [place] [place] [address] * Blood culture (07/29/2024 4:08 PM EST) Blood Culture No growth at 120 hours 08/03/2024 5:01 PM EST [facility] Blood VENOUS BLOOD SPECIMEN / Unknown Venipuncture / Unknown 07/29/2024 4:08 PM EST 07/29/2024 4:15 PM EST Aubree Silverio MD MICROBIOLOGY - BLO OD ORDERABLES Performing Organization Address [facility] [place] [address] * Blood culture (07/29/2024 4:08 PM EST) Blood Culture No growth at 120 hours 08/03/2024 5:01 PM EST [facility] Blood VENOUS BLOOD SPECIMEN / Unknown Venipuncture / Unknown 07/29/2024 4:08 PM EST 07/29/2024 4:26 PM EST Aubree Silverio MD MICROBIOLOGY - BLO OD ORDERABLES Performing Organization Address [facility] Co de Phone Number [facility] [place] [address] * XR Chest One View (07/29/2024 2:30 PM EST) WORKSTATION ID [id number] RAD Anatomical Region Laterality Modality Chest N/A [...] have questions please contact the health healthcare analyst that requested your imaging first. ? Narrative [...] who have questions please contactthe health healthcare analyst that requested your imaging first. Vahe Marvin MD IMG DX ORDERABLES * (ABNORMAL) APTT (07/29/2024 2:03 PM EST) Partial Thromboplastin Time >160(HHH) 25 - 37 sec 07/29/2024 2:56 PM EST [facility] Blood VENOUS BLOOD SPECIMEN / Unknown Venipuncture / Unknown 07/29/2024 2:03 PM EST 07/29/2024 2:13 PM EST Vahe Marvin MD HEMATOLOGY ORDERABLE S Performing Organization Address [facility] Co de Phone Number [facility] [place] [address] * (ABNORMAL) Prothrombin Time (07/29/2024 2:03 PM [...] ORDERABLE S Performing Organization Address [facility] Co de Phone Number [facility] [place] [address] * CRP, acute inflammation (07/29/2024 2:03 PM EST) C-Reactive Protein <3.0 <=4.9 mg/L 07/29/2024 2:52 PM [facility] Blood VENOUS BLOOD SPECIMEN / Unknown Venipuncture / Unknown 07/29/2024 2:03 PM EST 07/29/2024 2:14 PM EST Vahe Marvin MD CHEMISTRY ORDERABLES [facility] [place] [address] * Lipid Panel (Reflex Direct LDL) (07/29/2024 [...] EST 07/29/2024 2:14 PM EST [facility] - 07/29/2024 2:52 PM EST It [...] Marvin MD CHEMISTRY ORDERABLES Performing Organization Address City/[facility]/ZIP Co de Phone Number [facility] [place] [address] * TSH [place] (07/29/2024 2:03 PM EST) Thyroid Stimulating Hormone 0.70 0.27 - 4.20 mcIU/mL 07/29/2024 2:52 PM EST [facility] Blood VENOUS BLOOD SPECIMEN / Unknown Venipuncture / Unknown 07/29/2024 2:03 PM EST 07/29/2024 2:14 PM EST Vahe Marvin MD CHEMISTRY ORDERABLES Performing Organization Address City/[facility]/ZIP Co de Phone Number [facility] [place] [address] * Hemoglobin A1c (07/29/2024 2:03 PM EST) [...] red blood cell turnover may not be accounting representative of glycemic control. Reference Interval: 4.3 [...] EST 07/29/2024 2:14 PM EST [facility] - 07/29/2024 2:41 PM EST Estimated average glucose (eAG) is calculated from the equation described in: Quinten ALVES, Rikki J, Reno R, et al. ??Translating the A1C assay into estimated average glucose values. ??Diabetes Care 2008:31(8):9796-5687. Additional resources are available on the ADA website (diabetes.org). Vahe Marvin MD CHEMISTRY ORDERABLES [facility] [place] [address] * (ABNORMAL) CBC (with Diff) (07/29/2024 2:03 PM EST) White Blood Cell 19.50(H) 4.00 - 9.50 x10(3)/mc L 07/29/2024 2:18 PM EST [facility] Red Blood Cell 4.81 4.58 - 5.54 x10(6)/mc L 07/29/2024 2:18 PM EST [facility] Hemoglobin 13.1(L) 13.7 - 16.5 g/dL 07/29/2024 2:18 PM [facility] Hematocrit 40.1(L) 40.5 - 48.5 % 07/29/2024 2:18 PM EST [facility] Mean Cell Volume 83.4 [...] Gran % 0.5 % 2:18 PM EST [facility] Immature Gran Absolute 0.09(H) 0.00 - 0.04 x10(3)/mc L 07/29/2024 2:18 PM EST [facility] Blood VENOUS BLOOD SPECIMEN / Unknown Venipuncture / Unknown 07/29/2024 2:03 PM EST 07/29/2024 2:13 PM EST Vahe Marvin MD HEMATOLOGY ORDERABLE S Performing Organization Address City/[facility]/ZIP Co de Phone Number [facility] [place] [address] * Phosphorus (07/29/2024 2:03 PM EST) Phosphorus 2.5 2.5 - 4.5 mg/dL 07/29/2024 2:52 PM EST [facility] Blood VENOUS BLOOD SPECIMEN / Unknown Venipuncture / Unknown 07/29/2024 2:03 PM EST 07/29/2024 2:14 PM EST Vahe Marvin MD CHEMISTRY ORDERABLES Performing Organization Address City/[facility]/ZIP Co de Phone Number [facility] [place] [address] * Magnesium (07/29/2024 2:03 PM EST) Magnesium 0.70 0.69 - 1.07 mMol/L 07/29/2024 2:52 PM EST [facility] Blood VENOUS BLOOD SPECIMEN / Unknown Venipuncture / Unknown 07/29/2024 2:03 PM EST 07/29/2024 2:14 PM EST Vahe Marvin MD CHEMISTRY ORDERABLES [facility] [place] [address] * (ABNORMAL) Comprehensive metabolic panel (07/29/2024 2:03 [...] 0.5 <=1.3 mg/dL 07/29/2024 3:11 PM EST [facility] Est Glomerular Filtration Rate - Male 91 mL/min/1. 73 m?? 07/29/2024 3:11 PM EST [facility] CHEMISTRY ORDERABLES [facility] [place] [address] * (ABNORMAL) Troponin - Single (07/29/2024 2:03 [...] troponin value can be found in the [facility] Laboratory Test Catalog Troponin - https://[email or web address].org/catalogs/565/files/31181 Reference: Fourth Clare Definition of Myocardial Infarction. Journal of the [place] College of Cardiology 2018;72:1242-9806 Blood VENOUS BLOOD SPECIMEN / Unknown Venipuncture / Unknown 07/29/2024 2:03 PM EST 07/29/2024 2:14 PM EST Vahe Marvin MD CHEMISTRY ORDERABLES [facility] [place] [address] * (ABNORMAL) Blood Gas, Venous POC (07/29/2024 [...] Venous 0.8 % 07/29/2024 2:02 PM EST [facility] Comment: Nonsmokers: 0.5-1.5% COHB ?? Smokers: Variable ??but usually less than 10% ?? Toxic: 20-30% COHB ?? Lethal: Greater than 60% COHB Methemoglobin, Venous 0.3 <=1.5 % 07/29/2024 2:02 PM EST [facility] Sodium, Venous 137 135 - 145 mmol/L 07/29/2024 2:02 PM EST [facility] Potassium, Venous 3.6 3.5 [...] O RDERABLES [facility] [place] [address] * CARDIAC CATHETERIZATION (07/29/2024 1:20 PM EST) Anatomical Region Laterality Modality Other Narrative 07/29/2024 2:02 PM EST ?[facility] ? Cardiac Catheterization/Intervention Report ? Patient Name: Korey Montoya. ? Procedure Date: 07/29/2024 ? A #: [id number] ? Primary Physician: Shavonne, Vahe S ? Case #: [id number] ? File Name: [id number] ? Catheterization Order Number: [id number] ? [facility] ? Final Report [place], [place] ? Patient Name: ? Korey P. Montoya ?ID#: ?[id number] ? : ?1950 ? Procedure Date: ? July 29, 2024 ?Case #: ? [id number] ? Room: ? 5 ? Case Physician: [...] was Emergent. The indication for ?the laborer chemical processing visit is ACS less than or equal [...] 3.5 guiding catheter and a 3.5 Fr [place] [facility] [address] ??20 Mhz using ?Manual pullback. ??Imaging [...] A premounted 3.00 x 22 mm Jeison Avoca (LOW) was deployed ? with a maximum [...] ??A premounted 3.00 x 08 mm [place]ison [place] (LOW) ? was deployed with a maximum [...] administered prior to arrival in the laborer chemical processing. ?Recommended anti-platelet/anti-thrombotic regimen: ?Start aspirin 81 mg daily now and continue for 12 months then stop. ?Start clopidogrel 75 mg daily now and continue for indefinitely. ?These recommendations are made at the time of the intervention. Patient ?and provider preferences or a changing clinical situation may require ?modification of this regimen. Consult [facility] Interventional Cardiology for ?questions. ?The [...] able ?to start weaning his inotropes/vasopressors. A Dilworth Colette catheter was ?placed demonstrating improvement in [...] ventricular assist device insertion, right heart ?catheterization, Dilworth (flow directed cath) insertion, access site ?angiography, vascular ultrasound, venous line / sheath insert and vascular ?closure device. ? Vahe Marvin M.D. ? Electronically Signed by: Vahe Marvin M.D. ? Report Finalized: 07/29/2024 ??13:55 ? Report Last Ammended: 09/20/2024 ??15:21 ? Procedure Note Vahe Marvin MD - 09/20/2024 [facility] Cardiac Catheterization/Intervention Report Patient Name: Korey Montoya Procedure Date: 07/29/2024 A #: [id number] Primary Physician: Vahe Marvin Case #: [id number] File Name: [id number] Catheterization Order Number: [id number] [facility] FinalReport [place], [place] Patient Name: Korey Montoya ID#:[id number] :1950 Procedure Date: July 29, 2024 Case [...] was designated as ASA Class IV. The [facility] clinical frailtyscale is 4: Vulnerable. Diagnostic Tests: Electrocardiography: EKG was assessed by ECG. EKG was Abnormal. EKG showed STDeviation >= 0.5 mm. Medications Prior to Procedure: Angiotensin II Receptor Elvis and Statin. Indications for Diagnostic Cath: The priority of the diagnostic procedure was Emergent. Theindication for the laborer chemical processing visit is ACS less than or equal [...] 3.5 guiding catheter and a 3.5 Fr [place] [facility] [address] 20 Mhzusing Manual pullback. Imaging was [...] The priority for the procedure was Emergent.[facility] the procedure was STEMI-Immediate [...] The lesion was predilated with a 2.00mm [id number] MM balloon with a maximum inflation pressure of 12atmospheres. A premounted 3.00 x 22 mm [place] Av[place] (LOW) wasdeployed with a maximum inflation pressure [...] atmospheres. A premounted 3.00 x 08 mm [place](LOW) was deployed with a maximum inflation pressure [...] administered prior to arrival in the laborer chemical processing. Recommended anti-platelet/anti-thrombotic regimen: Start aspirin 81 mg daily now and continue for 12 months then stop. Start clopidogrel 75 mg daily now and continue for indefinitely. These recommendations are made at the time of the intervention.Patient and provider preferences or a changing clinical situation mayrequire modification of this regimen. Consult [facility] Interventional Cardiologyfor questions. The 1 [...] wereable to start weaning his inotropes/vasopressors. A Dilworth Colette catheterwas placed demonstrating improvement in his [...] ventricular assist device insertion, right heart catheterization, Dilworth (flow directed cath) insertion, access site angiography, [...] O RDERABLES [facility] [place] [address] * (ABNORMAL) BLOOD GAS, POC (07/29/2024 12:12 [...] O RDERABLES [facility] [address] documented in this encounter Visit Diagnoses Diagnosis [...] based off of anti-Xa levels per the [facility] Anti-Xa Algorithm and inform the ECMO attending. [...] must be infused through a CENTRAL LINE [facility] Bag 07/30/2024 10:25 PM EST 20 [...] must be infused through a [facility]TR[facility] LINE [facility] Bag 08/01/2024 5:14 AM EST 20 [...] Routine documented in this encounter Care Teams Paint Roller Cover Machine Setter Relationship Specialty Start Date End Date Alexia Mtz, FORMING MACHINE [employer] MECHANIC [address] [place] [address] PCP - General Family Medicine 07/30/24 documented as of this encounter
--- OUTSIDE RECORDS SUMMARY | 2024-10-08 11:20 | XMS_ITS | Encounter Summary ---
[place] [address] Care Team Providers Care Geospatial Information Technologist Name Role Phone Alexia Mtz FREDRICK Primary Care Provider [phone] Reason for Visit * Auth/Cert (Routine) Specialty Diagnoses / Procedures Referred By Theodore muro Referred To Contact Diagnoses STEMI (ST elevation myocardial infarction) STEMI Procedures ER SUI Vahe Marvin MD [facility] [place] [address] [facility] Referral ID Status Reason Start Date Expiration Date Visits Re quested Visits Authorized [id number] 1 1 Encounter Details Date Type Department Care Team (Late st Contact Info) Description 07/31/2024 4:30 PM EST - 07/31/2024 5:30 PM [place] [address] Maldonado Luis MD [facility] [place] [address] CARDIAC CATHETERIZATION Social History Tobacco Use Types Packs/Day Years Used Date Smoking Tobacco: Former Cigarettes Smokeless Tobacco: Never Alcohol Use Standard Drinks/Week Comments Not Currently 0 (1 standard drink = 0.6 oz pur e alcohol) [facility] Utilities Answer Date Recorded In the past 12 months has [employer] electric, gas, oil, or water company threatened [...] the past 12 m [facility], were you homeless or living in a [...] [facility] Justice Of The Peace . Issues afterhours and on weekends will [...] the next year. Access was via right CLAIMS SERVICE ADJUSTOR and this sitewas clean, dry and intact [...] for Chest pain. Replaces: nitroGLYcerin 400 mcg/spray Erwin, Non-Aerosol 0.4 mg Quantity: 90 tablet Refills: [...] Refills: 0 STOPPED Medications nitroGLYcerin 400 mcg/spray Erwin, Non-Aerosol Commonly known as: NITROLINGUAL Replaced by: [...] of one year. After this time, your powdered metal supervisor will determine if you need to [...] away. Stay on the phone. The emergency acid polymerization operator will tell you what to do. [...] appointments: During 8am-5pm Tuesday through Tuesday call [phone] to speak with a nurse in the cardiology clinic All other times call [phone] and ask to speak to the lending advisor addictions recovery specialist. Follow up Appointments: PCP Alexia Mtz, ASSISTANT TEACHER [phone]. Please call to establish a follow up appointment within 1-2 weeks of discharge. Cardiology. Referral to heart failure has been sent. General Instructions None Future Appointments and Orders Future Orders Complete By Expires Referral to Cardiac Rehab [ECT139 Custom] As directed Process Instructions: If no progress note charted, please enter Clinical details in comments. Scheduling Instructions: Questions: My question or request is: STEMI, PCI- cardiac rehab at [facility] Referral to Cardiology [REF12 Custom] As [...] of one year. After this time, your powdered metal supervisor will determine if you need to [...] away. Stay on the phone. The emergency acid polymerization operator will tell you what to do. [...] appointments: During 8am-5pm Tuesday through Tuesday call [phone] to speak with a nurse in the cardiology clinic All other times call [phone] and ask to speak to the lending advisor addictions recovery specialist. Follow up Appointments: PCP Alexia Mtz, ASSISTANT TEACHER [phone]. Please call to establish a follow up [...] home with 2 NAOMI. 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 He [...] Total time: 35 (tef) minutes Time IN/OUT: [id number] ZAIDA DUBOSE PT Pager: [phone] Physical Therapy Inpatient Rehabilitation Department * Yrn Ward MD - 08/03/2024 10:38 AM EST CV HOSPITALIST 2 - [facility] DAILY PROGRESS NOTE Page [phone] to reach a provider 04/04 Admit Date: [...] Compared to the overnight study by the addictions recovery specialist fellow the impella position is stable. 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 He [...] Total time: 37 (eval) minutes Time IN/OUT: [id number] ZAIDA DUBOSE, PT Pager: [phone] Physical Therapy Inpatient Rehabilitation Department * Gagan [...] 6 at time of transfer to [facility]. CI initially 1.97, improved to 2.2 After impella. Received about 3 L of fluid during procedural course. Patient initially required norepinephrine 30, epinephrine 10, and vasopressin 0.04 for hemodynamic support, which was weaned upon arrival to [facility] to norepinephrine 20and levo 0.04 N [...] PCP: Alexia Mtz APRN PCP phone number: [phone] Date of Admission: 07/29/2024 ( Hospital Day [...] 07/29/24 1621 PHART 7.48* 7.44 7.38 7.37 IEU0OPN 29* 29* 34* 36 PO2ART 71* 109* 141* 71* ISJ0HWU 20.6 19.4* 19.5* 20.4 VBG (Venous Blood Gas) Recent Labs 07/29/24 1401 PHVEN 7.30* PO2VEN 39 MSM0EXM 20.1* Mixed Venous Sat No results for input(s): L4PEDD7 in the last 168 hours. Objective: Vitals [...] 07/29/24 1621 PHART 7.48* 7.44 7.38 7.37 ETC2PNV 29* 29* 34* 36 PO2ART 71* 109* 141* 71* CFR7EDH 20.6 19.4* 19.5* 20.4 VBG (Venous Blood Gas) Recent Labs 07/29/24 1401 PHVEN 7.30* PO2VEN 39 JKB5SDV 20.1* Mixed Venous Sat No results for input(s): F4ZGTC5 in the last 168 hours. Microbiology: Microbiology Results (Last 30 days) Procedure Component Value Units Date/Time Blood culture [[id number]] Collected: 07/29/241607 Lab Status: Preliminary result Specimen: Blood, Venous Updated: 08/01/241700 Blood Culture No growth at 72 hours Blood culture [[id number]] Collected: 07/29/241607 Lab Status: Preliminary result Specimen: Blood, Venous Updated: 08/01/241700 Blood Culture No growth at 72 hours Imaging: Results for orders placed or performed during the hospital encounter of 07/29/24 XR Chest One View (Exam End: 07/29/2024 2:30 PM) Result Value WORKSTATION ID [id number] Impression 1. No pulmonary edema. 2. No pleural effusion. 3. No pneumothorax. Thank you for letting us participate in the care of this patient. If you are a health care provider and have any questions regarding this report, please contact the number below. For patients who have questions please contact the health managed care director that requested your imaging first. [...] Compared to the overnight study by the addictions recovery specialist fellow the impella position is stable. [...] Ornelas MD Internal Medicine, PGY-1 Cardiology, [facility] 08/02/24 12:45 PM CARDIOLOGY STAFF NOTE [...] floor. Krystal Parker MD, [facility] Staff Research Dietitian critical care unit manager * Gagan Catherine MD - 08/01/2024 [...] 6 at time of transfer to [facility]. CI initially 1.97, improved to 2.2 After impella. Received about 3 L of fluid during procedural course. Patient initially required norepinephrine 30, epinephrine 10, and vasopressin 0.04 for hemodynamic support, which was weaned upon arrival to [facility] to norepinephrine 20and levo 0.04 N [...] PCP: Alexia Mtz APRN PCP phone number: [phone] Date of Admission: 07/29/2024 ( Hospital Day [...] 07/29/24 1621 PHART 7.48* 7.44 7.38 7.37 KFS2GNU 29* 29* 34* 36 PO2ART 71* 109* 141* 71* MWC9OXL 20.6 19.4* 19.5* 20.4 VBG (Venous Blood Gas) Recent Labs 07/29/24 1401 PHVEN 7.30* PO2VEN 39 MRZ6ZGX 20.1* Mixed Venous Sat No results for input(s): E7NSHA5 in the last 168 hours. PA Catheter [...] 07/29/24 1621 PHART 7.48* 7.44 7.38 7.37 HUE2XOA 29* 29* 34* 36 PO2ART 71* 109* 141* 71* CYH9UPZ 20.6 19.4* 19.5* 20.4 VBG (Venous Blood Gas) Recent Labs 07/29/24 1401 PHVEN 7.30* PO2VEN 39 MEK5CTB 20.1* Mixed Venous Sat No results for input(s): T9AUUB1 in the last 168 hours. Microbiology: Microbiology Results (Last 30 days) Procedure Component Value Units Date/Time Blood culture [[id number]] Collected: 07/29/24 1608 Lab Status: Preliminary result Specimen: Blood, Venous Updated: 07/31/24 170 Blood Culture No growth at 48 hours Blood culture [[id number]] Collected: 07/29/24 1608 Lab Status: Preliminary result Specimen: Blood, Venous Updated: 07/31/24 1701 Blood Culture No growth at 48 hours Imaging: Results for orders placed or performed during the hospital encounter of 07/29/24 XR Chest One View (Exam End: 07/29/2024 2:30 PM) Result Value WORKSTATION ID [id number] Impression 1. No pulmonary edema. 2. No pleural effusion. 3. No pneumothorax. Thank you for letting us participate in the care of this patient. If you are a health care provider and have any questions regarding this report, please contact the number below. For patients who have questions please contact the health managed care director that requested your imaging first. [...] Compared to the overnight study by the addictions recovery specialist fellow the impella position is stable. [...] Ornelas MD Internal Medicine, PGY-1 Cardiology, [facility] 08/01/24 7:13 AM CARDIOLOGY STAFF NOTE [...] answered. Krystal Parker MD, [facility] Staff Research Dietitian critical care unit manager * Krystal Parker MD - 07/31/2024 [...] 6 at time of transfer to [facility]. CI initially 1.97, improved to 2.2 After impella. Received about 3 L of fluid during procedural course. Patient initially required norepinephrine 30, epinephrine 10, and vasopressin 0.04 for hemodynamic support, which was weaned upon arrival to [facility] to norepinephrine 20and levo 0.04 N [...] PCP: Alexia Mtz APRN PCP phone number: [phone] Date of Admission: 07/29/2024 ( Hospital Day [...] 0057 07/29/24 1621 PHART 7.44 7.38 7.37 UZO2UZG 29* 34* 36 PO2ART 109* 141* 71* EKM8DUT 19.4* 19.5* 20.4 VBG (Venous Blood Gas) Recent Labs 07/29/24 1401 PHVEN 7.30* PO2VEN 39 OAJ7AAC 20.1* Mixed Venous Sat No results for input(s): Y4DBSM2 in the last 168 hours. PA Catheter [...] 0057 07/29/24 1621 PHART 7.44 7.38 7.37 VAL7EYU 29* 34* 36 PO2ART 109* 141* 71* QAC7ILP 19.4* 19.5* 20.4 VBG (Venous Blood Gas) Recent Labs 07/29/24 1401 PHVEN 7.30* PO2VEN 39 LPL8HJW 20.1* Mixed Venous Sat No results for input(s): W6ENGC5 in the last 168 hours. Microbiology: Microbiology Results (Last 30 days) Procedure Component Value Units Date/Time Blood culture [[id number]] Collected: 07/29/241607 Lab Status: Preliminary result Specimen: Blood, Venous Updated: 07/30/241700 Blood Culture No Growth at 18-24 hrs. Blood culture [[id number]] Collected: 07/29/241607 Lab Status: Preliminary result Specimen: Blood, Venous Updated: 07/30/241700 Blood Culture No Growth at 18-24 hrs. Imaging: Results for orders placed or performed during the hospital encounter of 07/29/24 XR Chest One View (Exam End: 07/29/2024 2:30 PM) Result Value WORKSTATION ID [id number] Impression 1. No pulmonary edema. 2. No pleural effusion. 3. No pneumothorax. Thank you for letting us participate in the care of this patient. If you are a health care provider and have any questions regarding this report, please contact the number below. For patients who have questions please contact the health managed care director that requested your imaging first. [...] Compared to the overnight study by the addictions recovery specialist fellow the impella position is stable. [...] work to optimize volume status while continuing zusvcah-szrfhu-mpxgehzmjr therapies at this time. Obtain comprehensive TTE. [...] 6 at time of transfer to [facility]. CI initially 1.97, improved to 2.2 After impella. Received about 3 L of fluid during procedural course. Patient initially required norepinephrine 30, epinephrine 10, and vasopressin 0.04 for hemodynamic support, which was weaned upon arrival to [facility] to norepinephrine 20and levo 0.04 N [...] PCP: Yoel Artis APRN PCP phone number: [phone] Date of Admission: 07/29/2024 ( Hospital Day [...] Hour Events/Subjective: Yesterday: - Admitted to the [facility] - After his LHC, he demonstrated [...] 0057 07/29/24 1621 PHART 7.44 7.38 7.37 KEP5DEH 29* 34* 36 PO2ART 109* 141* 71* HSK2PJS 19.4* 19.5* 20.4 VBG (Venous Blood Gas) Recent Labs 07/29/24 1401 PHVEN 7.30* PO2VEN 39 ZSB9NYS 20.1* Lactate ( Last 12 hours) 1.3 >> 1.2 Mixed Venous Sat No results for input(s): E0JEPO5 in the last 168 hours. PA Catheter [...] 0057 07/29/24 1621 PHART 7.44 7.38 7.37 MDK6WKK 29* 34* 36 PO2ART 109* 141* 71* KIC6HVB 19.4* 19.5* 20.4 VBG (Venous Blood Gas) Recent Labs 07/29/24 1401 PHVEN 7.30* PO2VEN 39 QMZ8WCR 20.1* Mixed Venous Sat No results for input(s): L8JSOG6 in the last 168 hours. Microbiology: Microbiology Results (Last 30 days) Procedure Component Value Units Date/Time Blood culture [[id number]] Collected: 07/29/24 1608 Lab Status: In process Specimen: Blood, Venous Updated: 07/29/24 162 Blood culture [[id number]] Collected: 07/29/24 1608 Lab Status: In process Specimen: Blood, Venous Updated: 07/29/24 1615 Imaging: Results for orders placed or performed during the hospital encounter of 07/29/24 XR Chest One View (Exam End: 07/29/2024 2:30 PM) Result Value WORKSTATION ID [id number] Impression 1. No pulmonary edema. 2. No pleural effusion. 3. No pneumothorax. Thank you for letting us participate in the care of this patient. If you are a health care provider and have any questions regarding this report, please contact the number below. For patients who have questions please contact the health managed care director that requested your imaging first. [...] [facility] for further management and [facility] demo nstrated 100% occlusion. No significant RCA, LMCA, or LCX disease. LOW placed in LAD with some residual distal disease meriting placement of overlapping distal stent. TTE showed apical akinesis and inferior hypokinesis with EF 20%. RHC showed elevated filling pressures. Impella placed and P-level 6 at time of transfer to [facility]. CI initially 1.97, improved to 2.2 After impella. Received about 3 L of fluid during procedural course. Patient initially required norepinephrine, epinephrine, and vasopressin for hemodynamic support, which was weaned upon arrival to [facility] to norepinephrine 20 and levo 0.04 [...] 4.57) performed by Brandan Mcgovern MD [facility] ENDOSCOPY Significant Family History: Family History [...] mouth. Past Week nitroGLYcerin (NITROLINGUAL) 400 mcg/spray Erwin, Non-Aerosol 1 spray to anus for proctalgia [...] 3.5 guiding catheter and a 3.5 Fr [place] [place] [facility] 20 Mhz using Manual pullback. Imaging [...] atmospheres. A premounted 3.00 x 22 mm Mabie Willacy (LOW) was deployed with a maximum inflation [...] atmospheres. A premounted 3.00 x 08 mm Mabie Willacy (LOW) was deployed with a maximum inflation [...] a limited study performed by a fellow addictions recovery specialist to evaluate for cardiogenic shock with [...] Compared to the overnight study by the addictions recovery specialist fellow the impella position is stable. [...] PCP: Yoel Artis APRN PCP phone number: [phone] Date of Admission: 07/29/2024 ( Hospital Day [...] 4.57) performed by Brandan Mcgovern MD [facility] ENDOSCOPY Family History Family History Problem [...] Blood Gas) No results for input(s): PHART, RUZ2KHI, PO2ART, MZU7VGI, LACTATEVEN, TWB4XAL, PFRATIOART2 in the last 168 hours. VBG (Venous Blood Gas) Recent Labs 07/29/24 1401 PHVEN 7.30* PO2VEN 39 GTK9XEN 20.1* Mixed Venous Sat No results for input(s): X6UJIP8 in the last 168 hours. PA Catheter [...] Blood Gas) No results for input(s): PHART, EUW6QDK, PO2ART, QJF2YVX, LACTATEVEN, EQS5QEM, PFRATIOART2 in the last 168 hours. VBG (Venous Blood Gas) Recent Labs 07/29/24 1401 PHVEN 7.30* PO2VEN 39 JVE0NRZ 20.1* Mixed Venous Sat No results for input(s): A0SQGL9 in the last 168 hours. Microbiology: Microbiology [...] [facility] for [facility]. Found to have 100% occlusion of LAD for which he underwent LOW to LAD.Otherwise no other significant vessel disease. Fahad is currently hemodynamically tenuous but improving upon admission to [facility], requiring hemodynamic support with norepinephrine and vasopressin at time of admission along with mechanical support with Impella device. Reassuringly, he demonstrates decreasing pressor requirements since admission to [facility], with epinephrine completely weaned. He does [...] Amos MD Internal Medicine, PGY-3 Cardiology, [facility] 07/29/24 3:14 PM Cardiology Attending Note [...] FACC Section of Cardiovascular Medicine [facility] Marketing Officerdietary assistant [facility] [employer] [facility] This patient meets or has [...] to the planned procedure. Hand Hygiene: The fight manager did perform hand hygiene prior to [...] ease. Good wave form. Ivan Hernandez MD License And Permit Specialist Associated attestation - Rolando Yeh MD - [...] records provided * Plan of Care - Frnace Guerrero RN - 08/04/2024 7:21 AM EST [...] Fahad was quite active prior to his [place]. 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 Given parameters for home exercise. He follows a heart healthy diet and is not overweight. His lipids are wnl. Participation in an outpatient cardiac rehabilitation program at [facility] was discussed. Patient agrees to a [...] No Patient is insured through: Primary Insurance: [facility] MANAGED MEDICARE Payor: [facility] MEDICARE / Plan: AARP RPPO MANAGED [...] of Discharge: 08/04/2024 Gaby Wong RN, CM [phone] * Initial Assessments - Char Meza, OT [...] 4.57) performed by Brandan Mcgovern MD [facility] ENDOSCOPY Social History: Patient lives with his . Home Setup: 2 NAOMI to a 1 level home. DME: none Baseline ADL/Mobility: Independent with ADLs and IADLs. Enjoys walking. able assist as needed. Precautions/Special Considerations: Full code. Risk for falls. Subjective: I have access to an [employer] weight gym. (Educated to wait for MD [...] evaluation only Total Minutes, Occupational Therapy: 14 ([phone] (evaluation)) 2017 OT Evaluation Code Rationale: Diagnosis [...] and measurable assessment of functional outcome. Pager: [phone] Char Meza OT 08/03/2024 Occupational Therapy Rehabilitation [...] (Interventions Implemented as Appropriate) Flowsheets (Taken 08/01/2024 6588) Outcome Summary: A+O, no pain. NSR. MAP [...] Procedure Note: Patient Name: Korey Montoya : [id number] MR#: [id number] Case Date: 07/31/2024 Justice [employer] Peace: Surgeons and Role: * Maldonado Luis MD - Primary * Quinten Charles PA - Physician Rotary Drum Dyer Preoperative diagnosis: shock, impella Postoperative diagnosis: * same * Procedure(s) performed: Impella removal form right CLAIMS SERVICE ADJUSTOR Access: Right CLAIMS SERVICE ADJUSTOR A time-out was conducted prior to the [...] surrogate would be surrogate decision maker per [place] surrogate decision making law. (Only good for 180 days) Any patient receiving care in [place] must abide by [place] law. The hierarchy for surrogate decision making [...] (i) The agent with financial power of traffic law attorney or a conservator appointed in [...] In the past 12 months has the [employer] gas, oil, or water [employer] threatened to shut off services in your [...] it) Home Address confirmed as: Mailing Address: [facility] [address] [facility] [address] Physical Address: [address] [place], [place] Social & Family Supports: All [...] points: Addiction likely Health/Prescription Coverage: Primary Insurance: [employer] MANAGED MEDICARE Payor: [employer] MEDICARE / [facility] COMPLETE / Product Type: *No Product type* / Secondary Insurance: N/A ; Prescription Coverage: Yes Preferred Pharmacy: [address] [address] [place] Status: Patient is a : No Primary Care Provider confirmed: Alexia Mtz, ASSISTANT TEACHER [phone] Patient/Caregiver Goals of Treatment: return home Potential [...] of Vascular Access Complication 07/30/2024529 by Chase Castor RN Outcome: Ongoing (Interventions Implemented as Appropriate) [...] Procedure Note: Patient Name: Korey Montoya : [id number] MR#: [id number] Case Date: 07/29/2024 Justice [place] [employer] Peace: Surgeons and Role: * Vahe Marvin MD - Primary * Susannah Watts PA - Physician Rotary Drum Dyer Preoperative diagnosis: STEMI Postoperative diagnosis: * STEMI, LAD Artery * * Cardiogenic Shock * Procedure(s) performed: [facility] Coronary angiogram Stent insertion coronary IVUS coronary Venous line insert C Korbel Colette Catheter Vascular closure device Ventricular assist [...] x 22 mm to 14 deonna JEISON Willacy with LIZ 3 flow. Residual distal disease at distal stent, overlapping distal stent was inserted with 3.0 x 8 mm JEISON Willacy. Systolic's in the 80's sustained. Patient re [...] 9:30 AM EST Appointment Non-[place] [address] Mushtaq Murphy APRN 10/31/2024 11:00 AM EST Office Visit Cardiology at [address] [address] Mushtaq Murphy, FREDRICK Scheduled Orders Name Type [...] 0.10 x10(3)/mc L 08/04/2024 6:39 AM EST [facility] Immature Gran % 0.3 % 6:39 AM [facility] Immature Gran Absolute <0.04 0.00 - 0.04 x10(3)/mc L 08/04/2024 6:39 AM [facility] Blood VENOUS BLOOD SPECIMEN / Unknown Venipuncture / Unknown 08/04/2024 6:08 AM EST 08/04/2024 6:19 AM EST Bridgette Stauffer MD HEMATOLOGY ORDERABLE S Performing Organization Address City/Va Hospital/ZIP Co de Phone Number [facility] [place] [address] * Magnesium (08/04/2024 6:08 AM EST) Magnesium 0.85 0.69 - 1.07 mMol/L 08/04/2024 7:07 AM [facility] Blood VENOUS BLOOD SPECIMEN / Unknown Venipuncture / Unknown 08/04/2024 6:08 AM EST 08/04/2024 6:19 AM EST Bridgette Stauffer MD CHEMISTRY ORDERABLES [facility] [place] [address] * Basic Metabolic Panel (08/04/2024 6:08 AM [...] MD CHEMISTRY ORDERABLES [facility] [place] [address] * (ABNORMAL) CBC (with Diff) (08/03/2024 5:16 AM EST) White Blood Cell 7.85 4.00 - 9.50 x10(3)/mc L 08/03/2024 5:29 AM EST [facility] Red Blood Cell 4.43(L) [...] HEMATOLOGY ORDERABLE S [facility] [place] [address] * Magnesium (08/03/2024 5:16 AM EST) Magnesium 0.89 0.69 - 1.07 mMol/L 08/03/2024 5:56 AM [facility] Blood VENOUS BLOOD SPECIMEN / Unknown Venipuncture / Unknown 08/03/2024 5:16 AM EST 08/03/2024 5:23 AM EST Bridgette Stauffer MD CHEMISTRY ORDERABLES [facility] [place] [address] * (ABNORMAL) Basic Metabolic Panel (08/03/2024 5:16 [...] Stauffer MD CHEMISTRY ORDERABLES Performing Organization Address [facility]/Va Hospital/ZIP Co de Phone Number [facility] [place] [address] * POC, GLUCOSE (08/02/2024 7:47 AM EST) [facility] Glucometer, POC 89 65 - 199 mg/dL 08/02/2024 7:47 AM EST [facility] Comment:Supplemental ranges: <140 mg/dL before meals <180 mg/dL all other times of the day. Blood CAPILLARY BLOOD / Unknown 08/02/2024 7:47 AM EST 08/02/2024 7:47 AM EST Krystal Parker MD POINT OF CARE TEST O RDERABLES Performing Organization Address [facility] Co de Phone Number [facility] [place] [address] * (ABNORMAL) CBC (with Diff) (08/02/2024 4:20 [...] - 48.5 % 08/02/2024 4:50 AM EST [facility] Mean Cell Volume 81.2(L) [...] 0.90 x10(3)/mc L 08/02/2024 4:50 AM EST [facility] Eos % 1.4 % 08/02/2024 4:50 AM EST [facility] Eos Absolute 0.12 0.00 - 0.40 x10(3)/mc L 08/02/2024 4:50 AM EST [facility] Basophil % 0.4 % [...] HEMATOLOGY ORDERABLE S [facility] [place] [address] * Magnesium (08/02/2024 4:20 AM EST) Magnesium 0.79 0.69 - 1.07 mMol/L 08/02/2024 5:06 AM EST [facility] Blood VENOUS BLOOD SPECIMEN / Unknown Venipuncture / Unknown 08/02/2024 4:20 AM EST 08/02/2024 4:37 AM EST Bridgette Stauffer MD CHEMISTRY ORDERABLES [facility] [place] [address] * (ABNORMAL) Basic Metabolic Panel (08/02/2024 4:20 [...] Eh MD CHEMISTRY ORDERABLES Performing Organization Address [facility] Co de Phone Number [facility] [place] [address] * Potassium (08/01/2024 8:39 PM EST) Potassium 4.0 3.5 - 5.0 mMol/L 08/01/2024 9:21 PM EST [facility] Blood VENOUS BLOOD SPECIMEN / Unknown Venipuncture / Unknown 08/01/2024 8:39 PM EST 08/01/2024 8:51 PM EST Jay Silverio MD CHEMISTRY ORDERABL ES Performing Organization Address [facility] de [facility] Number [facility] [place] [address] * POC, GLUCOSE (08/01/2024 8:35 PM EST) Glucometer, POC 112 65 - 199 mg/dL 08/01/2024 8:36 PM EST [facility] Comment:Supplemental ranges: <140 mg/dL before meals <180 mg/dL all other times of the day. Blood CAPILLARY BLOOD / Unknown 08/01/2024 8:35 PM EST 08/01/2024 8:36 PM EST Krystal Parker MD POINT OF CARE TEST O RDERABLES Performing Organization Address [facility] Co de Phone Number [facility] [place] [address] * POC, GLUCOSE (08/01/2024 4:55 PM EST) Glucometer, POC 99 65 - 199 mg/dL 08/01/2024 4:56 PM EST [facility] Comment:Supplemental ranges: <140 mg/dL before meals <180 mg/dL all other times of the day. Blood CAPILLARY BLOOD / Unknown 08/01/2024 4:55 PM EST 08/01/2024 4:56 PM EST Krystal Parker MD POINT OF CARE TEST O RDERABLES Performing Organization Address City/[facility]/ZIP Co de Phone Number [facility] [place] [address] * POC, GLUCOSE (08/01/2024 12:42 PM EST) Glucometer, POC 130 65 - 199 mg/dL 08/01/2024 12:43 PM EST [facility] Comment:Supplemental ranges: <140 mg/dL before meals <180 mg/dL all other times of the day. Blood CAPILLARY BLOOD / Unknown 08/01/2024 12:42 PM EST 08/01/2024 12:43 PM EST Krystal Parker MD POINT OF CARE TEST O JOSH Performing Organization Address [facility] Co de Phone Number [facility] [place] [address] * (ABNORMAL) Cooximetry, POC (08/01/2024 10:45 AM [...] CARE TEST O RDERABLES Performing Organization Address [facility] Co de Phone Number [facility] [place] [address] * Potassium (08/01/2024 8:20 AM EST) Potassium 4.0 3.5 - 5.0 mMol/L 08/01/2024 10:17 AM EST [facility] Blood ARTERIAL BLOOD / Unknown Venipuncture / Unknown 08/01/2024 8:20 AM EST 08/01/2024 8:30 AM EST Jay Silverio MD CHEMISTRY ORDERABL ES Performing Organization Address [facility] Co de Phone Number [facility] [place] [address] * POC, GLUCOSE (08/01/2024 7:44 AM EST) [facility] Glucometer, POC 86 65 - 199 mg/dL 08/01/2024 7:44 AM EST [facility] Comment:Supplemental ranges: <140 mg/dL before meals <180 mg/dL all other times of the day. Blood CAPILLARY BLOOD / Unknown 08/01/2024 7:44 AM EST 08/01/2024 7:44 AM EST Krystal Parker MD POINT OF CARE TEST O RDKAY Performing Organization Address [facility] Co de Phone Number [facility] [place] [address] * (ABNORMAL) CBC (with Diff) (08/01/2024 4:18 [...] HEMATOLOGY ORDERABLE S [facility] [place] [address] * Magnesium (08/01/2024 4:18 AM EST) Magnesium 0.74 0.69 - 1.07 mMol/L 08/01/2024 5:00 AM [facility] Blood VENOUS BLOOD SPECIMEN / Unknown Venipuncture / Unknown 08/01/2024 4:18 AM EST 08/01/2024 4:29 AM EST Bridgette Stauffer MD CHEMISTRY ORDERABLES [facility] [place] [address] * (ABNORMAL) Basic Metabolic Panel (08/01/2024 4:18 [...] Stauffer MD CHEMISTRY ORDERABLES Performing Organization Address [facility] Co de Phone Number [facility] [place] [address] * POC, GLUCOSE (07/31/2024 8:41 PM EST) [facility] Signature Glucometer, POC 73 65 - 199 mg/dL 07/31/2024 8:41 PM EST [facility] Comment:Supplemental ranges: <140 mg/dL before meals <180 mg/dL all other times of the day. Blood CAPILLARY BLOOD / Unknown 07/31/2024 8:41 PM EST 07/31/2024 8:41 PM EST Krystal Parker MD POINT OF CARE TEST O RDERABLES Performing Organization Address [facility] de Phone Number [facility] [place] [address] * CARDIAC CATHETERIZATION (07/31/2024 5:53 PM EST) Anatomical Region Laterality Modality Other Narrative 08/01/2024 12:37 PM EST ?[facility] ? Cardiac Catheterization/Intervention Report ? Patient Name: Korey Montoya Kyrie. ? Procedure Date: 07/31/2024 ? A #: [id number] ? Primary Physician: Janelle, Maldonado T ? Case #: [id number] ? File Name: [id number] ? Catheterization Order Number: [id number] ? [facility] ? Final Report [place], [place] ? Patient Name: ? Korey P. Montoya ?ID#: ?[id number] ? : ?1950 ? Procedure Date: ? July 31, 2024 ?Case #: ? [id number] ? Room: ? 1 ? Case Physician: [...] ? 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 ??Good [...] Korey MontoyaToby Procedure Date: 07/31/2024 A #: [id number] Primary Physician: Maldonado Luis Case #: [id number] File Name: [id number] Catheterization Order Number: [id number] [facility] FinalReport [place], [place] Patient Name: Korey Montoya ID#:[id number] :1950 Procedure Date: July 31, 2024 Case [...] as ASA Class IV. The [facility] clinical frailtyscale is 4: Vulnerable. Diagnostic [...] procedures. 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 Good hemostasis. The attending physician was present for the entire procedure. Dr. Maldonado Luis M.D. was present during the moderate sedation intraservice time as documented by the sedation nurse. Case time =00:35. Dr. Maldonado Lusi M.D. performed the vascular closure device and ventricular assist device removal. Maldonado Luis M.D. Electronically Signed by: Maldonado Luis M.D. Report Finalized: 08/01/2024 12:31 Maldonado Luis MD CARDIAC CATH ORDERAB LES * POC, GLUCOSE (07/31/2024 11:04 AM EST) [facility] Glucometer, POC 82 65 - 199 mg/dL 07/31/2024 11:04 AM EST [facility] Comment:Supplemental ranges: <140 mg/dL before meals <180 mg/dL all other times of the day. Blood CAPILLARY BLOOD / Unknown 07/31/2024 11:04 AM EST 07/31/2024 11:04 AM EST Krystal Parker MD POINT OF CARE TEST O RDERABLES [facility] [place] [address] * (ABNORMAL) Blood Gas, Arterial POC (07/31/2024 [...] - 3.0 mmol/L 07/31/2024 8:30 AM EST [facility] Hemoglobin, Arterial 12.3(L) 13.7 [...] CARE TEST O RDERABLES Performing Organization Address City/[facility]/ZIP Co de Phone Number [facility] [place] [address] * POC, GLUCOSE (07/31/2024 7:47 AM EST) [facility] Glucometer, POC 82 65 - 199 mg/dL 07/31/2024 7:53 AM [facility] Comment:Supplemental ranges: <140 mg/dL before meals <180 mg/dL all other times of the day. Blood CAPILLARY BLOOD / Unknown 07/31/2024 7:47 AM EST 07/31/2024 7:53 AM EST Krystal Parker MD POINT OF CARE TEST O PEYTONERASHAY Performing Organization Address [facility] Co de Phone Number [facility] [place] [address] * (ABNORMAL) CBC (with Diff) (07/31/2024 1:08 AM EST) [facility] White Blood Cell 10.25(H) 4.00 - 9.50 [...] Immature Gran % 0.2 % 1:28 AM [facility] Immature Gran Absolute <0.04 0.00 - 0.04 x10(3)/mc L 07/31/2024 1:28 AM EST [facility] Blood VENOUS BLOOD SPECIMEN / Unknown Venipuncture / Unknown 07/31/2024 1:08 AM EST 07/31/2024 1:18 AM EST Bridgette Stauffer MD HEMATOLOGY ORDERABLE S Performing Organization Address City/[facility]/ZIP Co de Phone Number [facility] [place] [address] * Magnesium (07/31/2024 1:08 AM EST) Magnesium 0.89 0.69 - 1.07 mMol/L 07/31/2024 1:46 AM [facility] Blood VENOUS BLOOD SPECIMEN / Unknown Venipuncture / Unknown 07/31/2024 1:08 AM EST 07/31/2024 1:18 AM EST Bridgette Stauffer MD CHEMISTRY ORDERABLES [facility] [place] [address] * (ABNORMAL) Basic Metabolic Panel (07/31/2024 1:08 AM EST) Glucose 97 65 - 199 mg/dL 07/31/2024 1:46 AM [facility] Comment:Glucose Concentratio n >=200 mg/dL plus symptoms is consistent with Diabetes Mellitus. Blood Urea Nitrogen 11 10 - 20 mg/dL 07/31/2024 1:46 AM EST [facility] Creatinine 0.96 0.80 - 1.50 mg/dL 07/31/2024 1:46 AM EST [facility] Sodium 140 135 - 145 mMol/L 07/31/2024 1:46 AM EST [facility] Potassium 4.1 3.5 - 5.0 mMol/L 07/31/2024 1:46 AM [facility] Chloride 110(H) 98 - 107 mMol/L 07/31/2024 1:46 AM EST [facility] Carbon Dioxide 24 22 - 31 mMol/L 07/31/2024 1:46 AM EST [facility] Anion Gap 6 5 [...] MD CHEMISTRY ORDERABLES [facility] [place] [address] * (ABNORMAL) Hepatic Function Panel (07/31/2024 1:08 [...] AM EST Krystal Parker MD CHEMISTRY ORDERABLES [facility] [place] [address] * POC, GLUCOSE (07/30/2024 8:03 PM EST) Glucometer, POC 86 65 - 199 mg/dL 07/30/2024 8:03 PM EST [facility] Comment:Supplemental ranges: <140 mg/dL before meals <180 mg/dL all other times of the day. Blood CAPILLARY BLOOD / Unknown 07/30/2024 8:03 PM EST 07/30/2024 8:03 PM EST Krystal Parker MD POINT OF CARE TEST O RDERABLES [facility] [place] [address] * Potassium (07/30/2024 8:03 PM EST) Potassium 3.8 3.5 - 5.0 mMol/L 07/30/2024 9:13 PM EST [facility] Blood VENOUS BLOOD SPECIMEN / Unknown Venipuncture / Unknown 07/30/2024 8:03 PM EST 07/30/2024 8:22 PM EST Jay Silverio MD CHEMISTRY ORDERABL ES [facility] [place] [address] * POC, GLUCOSE (07/30/2024 6:23 PM EST) Glucometer, POC 93 65 - 199 mg/dL 07/30/2024 6:24 PM EST [facility] Comment:Supplemental ranges: <140 mg/dL before meals <180 mg/dL all other times of the day. Blood CAPILLARY BLOOD / Unknown 07/30/2024 6:23 PM EST 07/30/2024 6:24 PM EST Krystal Parker MD POINT OF CARE TEST O RDERABLES Performing Organization Address City/[facility]/ZIP Co de Phone Number [facility] [place] [address] * POC, GLUCOSE (07/30/2024 5:08 PM EST) Glucometer, POC 78 65 - 199 mg/dL 07/30/2024 5:08 PM EST [facility] Comment:Supplemental ranges: <140 mg/dL before meals <180 mg/dL all other times of the day. Blood CAPILLARY BLOOD / Unknown 07/30/2024 5:08 PM EST 07/30/2024 5:08 PM EST Krystal Parker MD POINT OF CARE TEST O RDERABLES [facility] [place] [address] * (ABNORMAL) Phosphorus (07/30/2024 3:08 PM EST) [facility] Phosphorus 2.1(L) 2.5 - 4.5 mg/dL 07/30/2024 3:58 PM EST [facility] Blood VENOUS BLOOD SPECIMEN / Unknown Venipuncture / Unknown 07/30/2024 3:08 PM EST 07/30/2024 3:12 PM EST Jay Silverio MD CHEMISTRY ORDERABL ES Performing Organization Address City/[facility]/ZIP Co de Phone Number [facility] [place] [address] * Magnesium (07/30/2024 3:08 PM EST) [facility] Magnesium 0.90 0.69 - 1.07 mMol/L 07/30/2024 3:58 PM EST [facility] Blood VENOUS BLOOD SPECIMEN / Unknown Venipuncture / Unknown 07/30/2024 3:08 PM EST 07/30/2024 3:12 PM EST Jay Silverio MD CHEMISTRY ORDERABL ES Performing Organization Address City/[facility]/ZIP Co de Phone Number [facility] [place] [address] * (ABNORMAL) Basic Metabolic Panel (07/30/2024 3:08 PM EST) [facility] Glucose 105 65 - 199 mg/dL 07/30/2024 [...] - 5.0 mMol/L 07/30/2024 4:17 PM EST [facility] Chloride 109(H) 98 - 107 mMol/L 07/30/2024 4:17 PM [facility] Carbon Dioxide 21(L) 22 - 31 mMol/L 07/30/2024 4:17 PM [facility] Anion Gap 11 [...] CHEMISTRY ORDERABL ES [facility] [place] [place] [address] * ECHO LMTD W CONTRAST W LMTD SPEC DOPP COLOR DOPP (07/30/2024 11:42 AM EST) Anatomical Region Laterality Modality Cardiac Other 07/30/2024 10:2 2 AM EST Narrative 07/30/2024 12:[address] [address] ? Echocardiogram Report Name: KOREY MONTOYA ? Study Date: 07/30/2024 10:22 AMBP: 124/66 mmHg : 1950 ? Height: 168 cm ? Account: [id number] Age: 74 yrs ? Weight: 65 kg Gender: Male ?BSA: 1.7 m2 Ordering Physician: Jay Silverio MD Referring Physician: CHAPARRO FERRERA Performed By: OMERO Millan Reason For Study: ST elevation myocardial infarction involving left anterior descending (LAD) coronary artery Interpreting Fellow: Ivan Hernandez. Exam Location: [facility]. Interpretation Summary Left ventricle is [...] Compared to the overnight study by the addictions recovery specialist fellow the impella position is stable. 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 Procedure Limited - 06310. Image enhancement Definity was used for both [...] Aneurysmal ?15-16 ?? diffuse Procedure Note Kathleen Bnada MD - 07/30/2024 [address] [place] [address] Echocardiogram Report Name: MONTOYAKOREY Study Date: 0:22 AMBP: 124/66 mmHg : 1950 Height: 168 cm Account: [id number] Age: 74 yrs Weight: 65 kg Gender: Male BSA: 1.7 m2 Ordering Physician: Jay Silverio MD Referring Physician: CHAPARRO FERRERA Performed By: OMERO Millan Reason For Study: ST elevation myocardial infarction involving leftanterior descending (LAD) coronary artery Interpreting Fellow: Ivan Hernandez. Exam Location: [facility]. Interpretation Summary Left ventricle is [...] Compared to the overnight study by the addictions recovery specialist fellow the impella positionis stable. The global left ventricular systolic function has improvedpredominantly via recruitment outside the LAD territory which remains akinetic. Procedure Limited - 70040. Image enhancement Definity was used for both [...] * POC, GLUCOSE (07/30/2024 11:17 AM EST) [facility] Glucometer, POC 97 65 - 199 mg/dL 07/30/2024 11:17 AM [facility] Comment:Supplemental ranges: <140 mg/dL before meals <180 mg/dL all other times of the day. Blood CAPILLARY BLOOD / Unknown 07/30/2024 11:17 AM EST 07/30/2024 11:17 AM EST Jay Silverio MD POINT OF CARE TEST ORDERABLES [facility] [place] [address] * (ABNORMAL) Blood Gas, Arterial POC (07/30/2024 8:16 AM EST) [facility] Signature pH, Arterial 7.44 7.35 [...] CARE TEST ORDERABLES [facility] [place] [address] * (ABNORMAL) Troponin - Single (07/30/2024 8:09 [...] troponin value can be found in the [facility] Laboratory Test Catalog Troponin - [email or web address]/catalogs/565/files/11521 Reference: Fourth Crivitz Definition of Myocardial Infarction. Journal of the [place] [employer] 2018;72:7811-2141 Blood VENOUS BLOOD SPECIMEN / Unknown Venipuncture / Unknown 07/30/2024 8:09 AM EST 07/30/2024 8:26 AM EST Jay Silverio MD CHEMISTRY ORDERABL ES [facility] [place] [address] * POC, GLUCOSE (07/30/2024 7:40 AM EST) Glucometer, POC 111 65 - 199 mg/dL 07/30/2024 7:40 AM [facility] Comment:Supplemental ranges: <140 mg/dL before meals <180 mg/dL all other times of the day. Blood CAPILLARY BLOOD / Unknown 07/30/2024 7:40 AM EST 07/30/2024 7:40 AM EST Jay Silverio MD POINT OF CARE TEST ORDERABLES Performing Organization Address City/State/[facility] Co de Phone Number [facility] [place] [address] * (ABNORMAL) CBC (with Diff) (07/30/2024 2:11 [...] 0.04 x10(3)/mc L 07/30/2024 2:33 AM EST [facility] Blood VENOUS BLOOD SPECIMEN / Unknown Venipuncture / Unknown 07/30/2024 2:11 AM EST 07/30/2024 2:22 AM EST Bridgette Stauffer MD HEMATOLOGY ORDERABLE S Performing Organization Address [facility] Co de Phone Number [facility] [place] [address] * Magnesium (07/30/2024 2:11 AM EST) Magnesium 1.01 0.69 - 1.07 mMol/L 07/30/2024 2:51 AM [facility] Blood VENOUS BLOOD SPECIMEN / Unknown Venipuncture / Unknown 07/30/2024 2:11 AM EST 07/30/2024 2:22 AM EST Bridgette Stauffer MD CHEMISTRY ORDERABLES Performing Organization Address [facility] Co de Phone Number [facility] [place] [address] * (ABNORMAL) Basic Metabolic Panel (07/30/2024 2:11 AM EST) Glucose 190 65 - 199 mg/dL 07/30/2024 2:51 AM [facility] Comment:Glucose Concentratio n >=200 mg/dL plus symptoms is consistent with Diabetes Mellitus. Blood Urea Nitrogen 15 10 - 20 mg/dL 07/30/2024 2:51 AM EST [facility] Creatinine 0.88 0.80 - 1.50 mg/dL 07/30/2024 2:51 AM [facility] Sodium 135 135 - 145 mMol/L 07/30/2024 2:51 AM [facility] Potassium 4.9 3.5 - 5.0 mMol/L 07/30/2024 2:51 AM EST [facility] Chloride 105 98 - 107 mMol/L 07/30/2024 2:51 AM EST [facility] Carbon Dioxide 19(L) 22 - 31 mMol/L 07/30/2024 2:51 AM EST [facility] Anion Gap 11 5 - 15 mMol/L 07/30/2024 2:51 AM [facility] Calcium 7.7(L) 8.5 - 10.5 mg/dL 07/30/2024 2:51 AM [facility] Est Glomerular [...] MD CHEMISTRY ORDERABLES [facility] [place] [address] * (ABNORMAL) Cooximetry, POC (07/30/2024 1:00 AM [...] OF CARE TEST ORDERABLES Performing Organization Address City/State/[facility] Co de Phone Number [facility] [place] [address] * (ABNORMAL) Blood Gas, Arterial POC (07/30/2024 [...] CARE TEST ORDERABLES [facility] [place] [address] * (ABNORMAL) Troponin - Single (07/29/2024 10:31 [...] troponin value can be found in the [facility] Test Catalog Troponin - [email or web address].[email or web address]/catalogs/565/files/84203 Reference: Fourth Crivitz Definition of Myocardial Infarction. Journal of the [place] College [employer] 2018;72:6349-6933 Blood VENOUS BLOOD SPECIMEN / Unknown Venipuncture / Unknown 07/29/2024 10:31 PM EST 07/29/2024 10:36 PM EST Yrn Ward MD CHEMISTRY ORDERABL ES Performing Organization Address City/[facility]/ZIP Co de Phone Number [facility] [place] [address] * Potassium (07/29/2024 8:11 PM EST) Potassium 4.1 3.5 - 5.0 mMol/L 07/29/2024 8:52 PM EST [facility] Blood VENOUS BLOOD SPECIMEN / Unknown Venipuncture / Unknown 07/29/2024 8:11 PM EST 07/29/2024 8:16 PM EST Jay Silverio MD CHEMISTRY ORDERABL ES [facility] [place] [address] * (ABNORMAL) Troponin - Single (07/29/2024 8:11 PM EST) Pathologist [facility] Troponin-T, [...] troponin value can be found in the [facility] Test Catalog Troponin - [email or web address]/catalogs/565/files/[email or web address] Reference: Fourth Crivitz Definition of Myocardial Infarction. Journal of the [place] [employer] 2018;72:9385-8801 Blood VENOUS BLOOD SPECIMEN / Unknown Venipuncture / Unknown 07/29/2024 8:11 PM EST 07/29/2024 8:16 PM EST Jay Silverio MD CHEMISTRY ORDERABL ES [facility] [place] [address] * (ABNORMAL) Phosphorus (07/29/2024 8:11 PM EST) Pathologist [facility] Phosphorus 2.1(L) 2.5 - 4.5 mg/dL 07/29/2024 8:52 PM EST [facility] Blood VENOUS BLOOD SPECIMEN / Unknown Venipuncture / Unknown 07/29/2024 8:11 PM EST 07/29/2024 8:16 PM EST Jay Silverio MD CHEMISTRY ORDERABL ES Performing Organization Address [facility] Co de Phone Number [facility] [place] [address] * POC, GLUCOSE (07/29/2024 8:09 PM EST) Glucometer, POC 142 65 - 199 mg/dL 07/29/2024 8:09 PM EST [facility] Comment:Supplemental ranges: <140 mg/dL before meals <180 mg/dL all other times of the day. Blood CAPILLARY BLOOD / Unknown 07/29/2024 8:09 PM EST 07/29/2024 8:09 PM EST Jay Silverio MD POINT OF CARE TEST ORDERABLES Performing Organization Address [facility] Co de Phone Number [facility] [place] [address] * ABORH RECHECK (07/29/2024 6:43 PM EST) ABORH Recheck AB POSITIVE 07/29/2024 10:13 PM EST [facility] Blood VENOUS BLOOD SPECIMEN / Unknown Venipuncture / Unknown 07/29/2024 6:43 PM EST 07/29/2024 7:15 PM EST Jay Silverio MD BLOOD BANK LAB ORD ERABLES Performing Organization Address City/[facility] Co de Phone Number [facility] [place] [place] [address] * POC, GLUCOSE (07/29/2024 5:57 PM EST) Glucometer, POC 166 65 - 199 mg/dL 07/29/2024 5:57 PM EST [facility] Comment:Supplemental ranges: <140 mg/dL before meals <180 mg/dL all other times of the day. Blood CAPILLARY BLOOD / Unknown 07/29/2024 5:57 PM EST 07/29/2024 5:57 PM EST Jay Silverio MD POINT OF CARE TEST ORDERABLES [facility] [place] [address] * Type and screen ([facility] (07/29/2024 5:56 PM EST) [facility] ABORH Type AB POSITIVE 07/29/2024 9:44 PM EST [facility] PATIENT HISTORY Not Found 07/29/2024 9:44 PM EST [facility] Expires at [id number] on: 08/01/2024 07/29/2024 9:44 PM EST [facility] BLOOD BANK LABORATORY ANTIBODY SCREEN AUTOMATED Negative 07/29/2024 9:44 PM EST [facility] BLOOD BANK LABORATORY T&S only valid at [facility] 07/29/2024 9:44 PM EST [facility] BLOOD BANK LABORATORY Blood VENOUS BLOOD SPECIMEN / Unknown Venipuncture / Unknown 07/29/2024 5:56 PM EST 07/29/2024 6:07 PM EST Narrative [facility] BLOOD BANK LABORATORY - 07/29/2024 9:44 PM EST This Type and Screen result is only valid at the [facility] Jay Silverio MD BLOOD BANK LAB ORD ERABLES Performing Organization Address City/Va Hospital/ZIP Co de Phone Number [facility] [place] [address] * (ABNORMAL) Troponin - Single (07/29/2024 4:52 PM EST) [facility] Troponin-T, High Sensitivity >10,000(H ) <=22 ng/L [...] troponin value can be found in the [facility] Laboratory Test Catalog Troponin - https://[facility]-.testcatalog.org/catalogs/565/files/07358 Reference: Fourth Crivitz Definition of Myocardial Infarction. Journal of the [place] College of Cardiology 2018;72:7876-2523 Blood VENOUS BLOOD SPECIMEN / Unknown Venipuncture / Unknown 07/29/2024 4:52 PM EST 07/29/2024 4:57 PM EST Jay Silverio MD CHEMISTRY ORDERABL ES [facility] [place] [address] * EKG 12 Lead (07/29/2024 4:21 PM EST) Ventricular rate 72 BPM MUSE SYSTEM Atrial Rate 72 BPM MUSE SYSTEM P-R Interval 168 ms MUSE SYSTEM QRS Duration 82 ms MUSE SYSTEM Q-T Interval 392 ms MUSE SYSTEM QTC Calculated (Bezet) 429 ms MUSE SYSTEM Calculated P Leips[place] 71 degrees MUSE SYSTEM Calculated R [place] 77 degrees MUSE SYSTEM Calculated T [place] 28 degrees MUSE SYSTEM INTERPRETATION Sinus rhythm [...] CARE TEST ORDERABLES [facility] [place] [address] * POC, GLUCOSE (07/29/2024 4:19 PM EST) Glucometer, POC 185 65 - 199 mg/dL 07/29/2024 4:19 PM [facility] Comment:Supplemental ranges: <140 mg/dL before meals <180 mg/dL all other times of the day. Blood CAPILLARY BLOOD / Unknown 07/29/2024 4:19 PM EST 07/29/2024 4:19 PM EST Jay Silverio MD POINT OF CARE TEST ORDERABLES [facility] [place] [address] * Blood culture (07/29/2024 4:08 PM EST) Blood Culture No growth at 120 hours 08/03/2024 5:01 PM EST [facility] Blood VENOUS BLOOD SPECIMEN / Unknown Venipuncture / Unknown 07/29/2024 4:08 PM EST 07/29/2024 4:15 PM EST Jay Silverio MD MICROBIOLOGY - BLO OD ORDERABLES Performing Organization Address [facility]/Va Hospital/[facility] Co de Phone Number [facility] [place] [address] * Blood culture (07/29/2024 4:08 PM EST) Blood Culture No growth at 120 hours 08/03/2024 5:01 PM EST [facility] Blood VENOUS BLOOD SPECIMEN / Unknown Venipuncture / Unknown 07/29/2024 4:08 PM EST 07/29/2024 4:26 PM EST Jay Silverio MD MICROBIOLOGY - BLO OD ORDERABLES Performing Organization Address [facility]/Va Hospital/[facility] de Phone Number [facility] [place] [address] * XR Chest One View (07/29/2024 2:30 PM EST) WORKSTATION ID [id number] DH RAD Anatomical Region Laterality Modality Chest [...] questions please contact the health managed care director that requested your imaging first. [...] have questions please contactthe health managed care director that requested your imaging first. Vahe Marvin MD IMG DX ORDERABLES * (ABNORMAL) APTT (07/29/2024 2:03 PM EST) Partial Thromboplastin Time >160(HHH) 25 - 37 sec 07/29/2024 2:56 PM EST [facility] Blood VENOUS BLOOD SPECIMEN / Unknown Venipuncture / Unknown 07/29/2024 2:03 PM EST 07/29/2024 2:13 PM EST Vahe Marvin MD HEMATOLOGY ORDERABLE S [facility] [place] [address] * (ABNORMAL) Prothrombin Time (07/29/2024 2:03 PM EST) [facility] Prothrombin Time 14.2(H) 9.4 - 12.5 sec [...] HEMATOLOGY ORDERABLE S [facility] [place] [address] * CRP, acute inflammation (07/29/2024 2:03 PM EST) Pathologist [facility] C-Reactive Protein <3.0 <=4.9 mg/L 07/29/2024 2:52 PM EST [facility] Blood VENOUS BLOOD SPECIMEN / Unknown Venipuncture / Unknown 07/29/2024 2:03 PM EST 07/29/2024 2:14 PM EST Vahe Marvin MD CHEMISTRY ORDERABLES [facility] [place] [address] * Lipid Panel (Reflex Direct LDL) (07/29/2024 [...] mg/dL LDL Cholesterol 64 mg/dL 2:52 PM [facility] Comment: [...] 2:03 PM EST 07/29/2024 2:14 PM EST [facility] LABORATORY - 07/29/2024 2:52 PM EST It [...] ACC/AHA Guidelines (most recently Rolf et al. [facility] 06/15/22): * For individuals with [...] artery disease) Vahe Marvin MD CHEMISTRY ORDERABLES [facility] [place] [address] * TSH Fielding (07/29/2024 2:03 PM EST) Pathologist [facility] Thyroid Stimulating Hormone 0.70 0.27 - 4.20 mcIU/mL 07/29/2024 2:52 PM EST [facility] Blood VENOUS BLOOD SPECIMEN / Unknown Venipuncture / Unknown 07/29/2024 2:03 PM EST 07/29/2024 2:14 PM EST Vahe Marvin MD CHEMISTRY ORDERABLES Performing Organization Address City/Va Hospital/[facility] Co de Phone Number [facility] [place] [address] * Hemoglobin A1c (07/29/2024 2:03 PM EST) [...] red blood cell turnover may not be accounts payable representative of glycemic control. Reference Interval: 4.3 [...] Narrative [facility] - 07/29/2024 2:41 PM EST Estimated average glucose (eAG) is calculated from the equation described in: Quinten ALVES, Rikki J, Reno R, et al. ??Translating the A1C assay into estimated average glucose values. ??Diabetes Care 2008:31(8):9156-5851. Additional resources are available on the ADA website (diabetes.org). Vahe Marvin MD CHEMISTRY ORDERABLES [facility] [place] [address] * (ABNORMAL) CBC (with Diff) (07/29/2024 2:03 [...] - 48.5 % 07/29/2024 2:18 PM EST [facility] Mean Cell Volume 83.4 [...] HEMATOLOGY ORDERABLE S [facility] [place] [address] * Phosphorus (07/29/2024 2:03 PM EST) Phosphorus 2.5 2.5 - 4.5 mg/dL 07/29/2024 2:52 PM EST [facility] Blood VENOUS BLOOD SPECIMEN / Unknown Venipuncture / Unknown 07/29/2024 2:03 PM EST 07/29/2024 2:14 PM EST Vahe Marvin MD CHEMISTRY ORDERABLES Performing Organization Address City/Va Hospital/ZIP Co de Phone Number [facility] [place] [address] * Magnesium (07/29/2024 2:03 PM EST) Magnesium 0.70 0.69 - 1.07 mMol/L 07/29/2024 2:52 PM EST [facility] Blood VENOUS BLOOD SPECIMEN / Unknown Venipuncture / Unknown 07/29/2024 2:03 PM EST 07/29/2024 2:14 PM EST Vahe Marvin MD CHEMISTRY ORDERABLES [facility] [place] [address] * (ABNORMAL) Comprehensive metabolic panel (07/29/2024 2:03 PM EST) Glucose 243(H) 65 - 199 mg/dL 07/29/2024 3:11 PM EST [facility] Comment:Glucose [...] MD CHEMISTRY ORDERABLES [facility] [place] [address] * (ABNORMAL) Troponin - Single (07/29/2024 2:03 [...] troponin value can be found in the [facility] Laboratory Test Catalog Troponin - https://[facility]-.testcatalog.org/catalogs/565/files/11367 Reference: Fourth Crivitz Definition of Myocardial Infarction. Journal of the [place] College of Cardiology 2018;72:1328-3804 Blood VENOUS BLOOD SPECIMEN / Unknown Venipuncture / Unknown 07/29/2024 2:03 PM EST 07/29/2024 2:14 PM EST Vahe Marvin MD CHEMISTRY ORDERABLES [facility] [place] [address] * (ABNORMAL) Blood Gas, Venous POC (07/29/2024 [...] - 2.2 mmol/L 07/29/2024 2:02 PM EST [facility] Ionized Calcium, Venous 1.11(L) 1.15 - 1.33 mmol/L 07/29/2024 2:02 PM EST [facility] Blood VENOUS BLOOD SPECIMEN / Unknown 07/29/2024 2:01 PM EST 07/29/2024 2:02 PM EST Vahe Marvin MD POINT OF CARE TEST O RDERABLES Performing Organization Address City/State/[facility] Co de Phone Number [facility] [place] [address] * CARDIAC CATHETERIZATION (07/29/2024 1:20 PM EST) Anatomical Region Laterality Modality Other Narrative 07/29/2024 2:02 PM EST ?[facility] ? Cardiac Catheterization/Intervention Report ? Patient Name: Korey Montoya Kyrie. ? Procedure Date: 07/29/2024 ? A #: [id number] ? Primary Physician: Vahe Marvin ? Case #: [id number] ? File Name: [id number] ? Catheterization Order Number: [id number] ? [facility] ? Final Report [place], [place] ? Patient Name: ? Korey P. Jan ?ID#: ?[id number] ? : ?1950 ? Procedure Date: ? July 29, 2024 ?Case #: ? [id number] ? Room: ? 5 ? Case Physician: [...] 3.5 guiding catheter and a 3.5 Fr [facility] [address] ??20 Mhz using ?Manual pullback. ??Imaging [...] A premounted 3.00 x 22 mm Jeison Willacy (LOW) was deployed ? with a maximum [...] atmospheres. ??A premounted 3.00 x 08 mm Mabie Willacy (LOW) ? was deployed with a maximum [...] able ?to start weaning his inotropes/vasopressors. A Korbel Colette catheter was ?placed demonstrating improvement in [...] ventricular assist device insertion, right heart ?catheterization, Korbel (flow directed cath) insertion, access site ?angiography, vascular ultrasound, venous line / sheath insert and vascular ?closure device. ? Vahe Marvin M.D. ? Electronically Signed by: Vahe Marvin M.D. ? Report Finalized: 07/29/2024 ??13:55 ? Report Last Ammended: 09/20/2024 ??15:21 ? Procedure Note Vahe Marvin MD - 09/20/2024 [facility] Cardiac Catheterization/Intervention Report Patient Name: Korey Montoya Procedure Date: 07/29/2024 A #: [id number] Primary Physician: Vahe Marvin Case #: [id number] File Name: [id number] Catheterization Order Number: [id number] [facility] FinalReport [place], [place] Patient Name: Korey Montoya ID#:[id number] :1950 Procedure Date: July 29, 2024 Case [...] as ASA Class IV. The [facility] clinical frailtyscale is 4: Vulnerable. Diagnostic [...] 3.5 guiding catheter and a 3.5 Fr [facility] [address] 20 Mhzusing Manual pullback. Imaging was [...] The lesion was predilated with a 2.00mm [id number] MM balloon with a maximum inflation pressure of 12atmospheres. A premounted 3.00 x 22 mm Mabie Willacy (LOW) wasdeployed with a maximum inflation pressure [...] atmospheres. A premounted 3.00 x 08 mm Mabie Willacy(LOW) was deployed with a maximum inflation pressure [...] wereable to start weaning his inotropes/vasopressors. A Korbel Colette catheterwas placed demonstrating improvement in his [...] ventricular assist device insertion, right heart catheterization, Korbel (flow directed cath) insertion, access site angiography, [...] TEST O RDERABLES [facility] [place] [address] * (ABNORMAL) BLOOD GAS, POC (07/29/2024 12:12 [...] POINT OF CARE TEST O RDERABLES [facility]3] LABORATORY [facility] [place] [address] documented in this encounter Visit Diagnoses Not [...] Routine documented in this encounter Care Teams Geospatial Information Technologist Relationship Specialty Start Date End Date Alexia Mtz, FREDRICK [address] [place] [address] PCP - General Family Medicine 07/30/24 documented as of this encounter
--- OUTSIDE RECORDS SUMMARY | 2024-10-08 11:21 | XMS_ITS | Encounter Summary ---
[place] [address] Care Team Providers Care Electric Motor Fitter Name Role Phone Alexia Mtz PSYCHOMETRIC EXAMINER Primary Care Provider [phone] Encounter Details Date Type Department Care Team (Late st Contact Info) Description 06/25/2024 Lab [place] [address] Aubrey Cali MD [address] [place] [address] Pyuria Social History Tobacco Use Types Packs/Day [...] 9:30 AM EST Appointment Non-Invasive [place] [address] Mushtaq Murphy APRN 10/31/2024 11:00 AM EST Office Visit Cardiology at [address] [address] Mushtaq Murphy APRN documented as [...] Cali MD MICROBIOLOGY - GENER AL ORDERABLES [facility] [place] [address] documented in this encounter Visit Diagnoses Diagnosis Pyuria Other nonspecific finding on examination of urine documented in this encounter Care Teams Electric Motor Fitter Relationship Specialty Start Date End Date Alexia Mtz APRN [address] [place] [address] PCP - General Family Medicine 07/30/24 documented as of this encounter
--- OUTSIDE RECORDS SUMMARY | 2024-10-08 11:21 | XMS_ITS | Encounter Summary ---
[place] [address] Care Team Providers Care Data Analysis Assistant Name Role Phone Yoel Artis FREDRICK Primary Care Provider [phone] Encounter Details Date Type Department Care Team (Late st Contact Info) Description 01/16/[address] [facility] [address] [place] [address] Chaparro Montana MD [address] [place] [address] Social History Tobacco Use Types Packs/Day Years [...] 9:30 AM EST Appointment Non-[place] [address] Mushtaq Murphy APRN 10/31/2024 11:00 AM EST Office Visit Cardiology at [address] [address] Mushtaq Murphy, DIRECTOR LOAN documented as of this encounter Procedures Procedure Name Priority Date/Time Associated Diagnosis Comments CT HEAD WO CONTRAST (GENERIC) STAT 01/16/2024 4:17 PM EDT documented in this encounter Results * CT Head wo Contrast (Generic) (01/16/2024 4:17 PM EDT) PT CLASS E RAD ADMITDTTM [id number] RAD PT RAD MD INFO [id number]^Haniss henry^Chaparro RAD EXAM DESC CTHEAD^CT Head w/o [...] questions please contact the health director of healthcare systems that requested your imaging first. ? Electronically signed by: Alejandro Tenorio MD, [facility] ([phone]), at 01/16/2024 4:25 PM Narrative 01/16/2024 4:25 [...] have questions please contactthe health director of healthcare systems that requested your imaging first. Electronically signed by: Alejandro Tenorio MD, [facility]([phone]), at 01/16/2024 4:25 PM Chaparro Montana MD IMG CT ORDERABLES documented in this encounter Visit Diagnoses Not on filedocumented in this encounter Care Teams Data Analysis Assistant Relationship Specialty Start Date End Date Yoel Artis APRN [address] [place] [address] PCP - General Internal Medicine 11/18/22 07/29/24 documented as of this encounter
--- OUTSIDE RECORDS SUMMARY | 2024-10-08 11:21 | XMS_ITS | Encounter Summary ---
Author Organization [place] [address] Care Team Providers Care Coating Mixer Tender Name Role Phone Yoel Artis Ute ALCALA Primary Care Provider [phone] Encounter Details Date Type Department Care Team (Late st Contact Info) Description 07/29/2024 Interpretation Only [facility] [address] [place] [phone] Chaparro Montana MD [address] [place] [address] Social History Tobacco Use Types Packs/Day Years Used Date Smoking Tobacco: Former Cigarettes Smokeless Tobacco: Never Alcohol Use Standard Drinks/Week Comments Not Currently 0 (1 standard drink = 0.6 oz pur e alcohol) [facility] Utilities Answer Date Recorded In the past 12 months has [employer], gas, oil, or water [employer] threatened to shut off services in your [...] the past [address] [facility], were you homeless or living in a [...] 9:30 AM EST Appointment Non[place] [address] Mushtaq Murphy, SAND SYSTEM OPERATOR 10/31/2024 11:00 AM EST Office Visit Cardiology at [address] [address] Mushtaq Murphy, SAND SYSTEM OPERATOR documented as of this encounter Procedures Procedure Name Priority Date/Time Associated Diagnosis Comments XR CHEST ONE VIEW STAT 07/29/2024 10: 50 AM EST documented in this encounter Results * XR Chest One View (07/29/2024 10:50 AM EST) PT CLASS E RAD ADMITDTTM [id number] RAD PT RAD MD INFO [id number]^Jordy figueroa^Chaparro RAD EXAM DESC XCXR1^XR Chest 1 [...] please contact the health post acute care registered nurse that requested your [...] questions please contactthe health post acute care registered nurse that requested your imaging first. Chaparro Montana MD IMG DX ORDERABLES documented in this encounter Visit Diagnoses Not on filedocumented in this encounter Care Teams Coating Mixer Tender Relationship Specialty Start Date End Date Yoel Artis APRN [address] [place] [address] PCP - General Internal Medicine 11/18/22 07/29/24 documented as of this encounter
--- OUTSIDE RECORDS SUMMARY | 2024-10-08 11:21 | XMS_ITS | Encounter Summary ---
Author Organization [facility] Address [facility] [place] [address] Care Team Providers Care Volunteer Coordinator Name Role Phone Yoel Artis APRN Primary Care Provider [phone] Encounter Details Date Type Department Care Team (Latest Contact Info) Description 11/30/2023 8:00 AM EDT TH Visit (TeleHealth) [place] [address] Yoel Dangelo APRN [facility] [place] [address] Proctalgia fugax; Constipation, unspecified constipation type Social [...] Bath: Sitz bath's are available in most [facility]. They work by improving blood flow and [...] Handout for Patients and Primary Care Providers [facility] What are functional bowel disorders? These are the most common type of gastrointestinal disorders in the [facility] The most common functional [...] what is the impact? 15-20% of general [place] population has IBS or FD or both 2nd most common cause for lost work days (after common cold) in [place] Estimated $30 billion dollar cost to [place] economy per year These disorders can have [...] to you primary care provider and/or local grocery clerk checking and share this document. Treatment of functional [...] - this approach benefits most patients OTC (wqah-fiz-vrreynn) medications can be used for ongoing bothersome symptoms as listed below Your provider (PCP or local Gastroenterology provider or [facility] Gastroenterology provider) may decide to [...] All-Bran psyllium buds, Metamucil, Konsyl, bulk psyllium ([employer] stores and Pfenex stores) Specifically we recommend starting Metamucil or [...] but convincing medical evidence is still lacking Wduz-hfj-qcmxhem supplements including probiotics are not typically evaluated [...] to decrease antibiotic-associated diarrhea and antibiotic-related infections Uxht-iiz-Rgnblda Medications for Functional Gut Disorders Based on [...] a stool softener that is safe for care home usage (no risk of dependency) andthe dosage [...] (GERD) Often a combination of anti-nausea medications (xebh-edr-cikxyii or prescription) works better thanhigh doses of [...] for misuse/misinterpretation of this information Patient Resources [place] [employer] https://www.gastro.org/practice-guidance/ft-ynwqene-uxegbo/ topic/nrumdyzgk-drsin-wcfrkhof-ibs Badgut.org https://badgut.org/information-centre/k-y-yiemgrtpf-topics/ibs/ AboutIBS.org https://www.aboutibs.org/ Uptodate.com https://www.uptodate.com/contents/ormnobnyx-qxhtm-lmdzpnvg-vfdrpn-afp-pdsxpn documented in this encounter Progress Notes * [...] Take by mouth. nitroGLYcerin (NITROLINGUAL) 400 mcg/spray Dexter, Non-Aerosol 1 spray to anus for proctalgia fugax as needed, not to exceed once daily 12 g 0 No facility-administered medications prior to visit. Allergies: has No Known Allergies. Past Medical History: has a past medical history of ADHD, HLD (hyperlipidemia), HTN (hypertension),and Tremor. Past Surgical History: has a past surgical history that includes Hand surgery and Colonoscopy, Antonieta Pfeiffer ([id number]) (N/A, 08/30/2023). Family History: family history is [...] for re-evaluation. The patient was located in [place] at the time of their visit. Yoel Dangelo APRN [facility] [place] [address] documented in this encounter Miscellaneous Notes * Addendum Note - Yoel Dangelo APRN - 11/30/2023 8:00 AM EDTAddended by: YOEL DANGELO on: 11/30/2023 08:46 AM Modules accepted: Level of Service documented in this encounter Plan of Treatment Upcoming Encounters Date Type Department Care Team (Late st Contact Info) Description 10/31/2024 9:30 AM EST Appointment Non[place] [address] Mushtaq Murphy APRN 10/31/2024 11:00 AM EST Office Visit Cardiology at [address] [address] Mushtaq Murphy APRN documented as of this encounter Visit Diagnoses Diagnosis Proctalgia fugax Anal spasm Constipation, unspecified constipation type documented in this encounter Care Teams Volunteer Coordinator Relationship Specialty Start Date End Date Yoel Artis APRN [address] [place] [address] PCP - General Internal Medicine 11/18/22 07/29/24 documented as of this encounter
--- OUTSIDE RECORDS SUMMARY | 2024-10-08 11:21 | XMS_ITS | Encounter Summary ---
Author Organization [facility] Address [facility] [place] [address] Care Team Providers Care Hims Coder Name Role Phone Yoel Artis Ute ALCALA Primary Care Provider [phone] Encounter Details Date Type Department Care Team (Late st Contact Info) Description 07/29/2024 [place] [address] Susannah Watts PA [facility] [place] [address] Social History Tobacco Use Types Packs/Day Years Used Date Smoking Tobacco: Former Cigarettes Smokeless Tobacco: Never Alcohol Use Standard Drinks/Week Comments Not Currently 0 (1 standard drink = 0.6 oz pur e alcohol) [facility] Utilities Answer Date Recorded In the past 12 months has Lien Enforcement, [employer], oil, or water [employer] threatened to shut off services in your [...] 9:30 AM EST Appointment [place] [address] Mushtaq Murphy, MEDICAL FILE CLERK 10/31/2024 11:00 AM EST Office Visit Cardiology at [address] [phone] Mushtaq Murphy, MEDICAL FILE CLERK documented as of this encounter Procedures Procedure Name Priority Date/Time Associated Diagnosis Comments ECHOCARDIOGRAM TRANSTHORACIC Routine 07/30/2024 1:41 AM EST documented in this encounter Results * Echocardiogram Transthoracic (07/30/2024 1:41 AM EST) Anatomical Region Laterality Modality Cardiac Other 07/30/2024 1:41 AM EST Narrative 07/30/2024 8:23 AM EST [address] [place] [address] ? Echocardiogram Report Name: BERMUDEZ KOREY Kyrie ? Study Date: 07/30/2024 01:41 AM : 1950 ? Height: 168 cm Age: 74 yrs ? Weight: 5.9 kg Gender: Male ?BSA: 0.63 m2 Performed By: Beatris Ching MD Reason For Study: STEMI, [place] History: ASCVD, HTN, HLD Interpreting Fellow: Beatris Ching. Interpretation Summary This is a limited study performed by a fellow chemical production engineer to evaluate for cardiogenic shock with [...] study available for comparison. Procedure Limited - 13224. Suboptimal quality. There is sinus bradycardia. Left [...] Note Kathleen Banda MD - 07/30/2024 [address] [place] [address] Echocardiogram Report Name: KOREY BERMUDEZ Study Date: 07/30/2024 01:41AM : 1950 Height: 168 cm Age: 74 yrs Weight: 5.9 kg Gender: Male BSA: 0.63 m2 Performed By: Beatris Ching MD Reason For Study: STEMI, [place] History: ASCVD, HTN, HLD Interpreting Fellow: Beatris Ching. Interpretation Summary This is a limited study performed by a fellow chemical production engineer to evaluate forcardiogenic shock with impella [...] study available for comparison. Procedure Limited - 34487. Suboptimal quality. There is sinus bradycardia. Left [...] on filedocumented in this encounter Care Teams Hims Coder Relationship Specialty Start Date End Date Yoel Artis APRN [address] [place] [address] PCP - General Internal Medicine 11/18/22 07/29/24 documented as of this encounter
--- OUTSIDE RECORDS SUMMARY | 2024-10-08 11:21 | XMS_ITS | Encounter Summary ---
[place] [address] Care Team Providers Care Sugar Cane Planting Equipment Operator Name Role Phone Alexia Mtz TOURIST CABIN KEEPER Primary Care Provider [phone] Encounter Details Date Type Department Care Team (Late st Contact Info) Description 04/23/2024 Lab [place] [address] Alexia Mtz, TOURIST CABIN KEEPER [address] [place] [address] Elevated prostate specific antigen (PSA) Social History [...] 9:30 AM EST Appointment Non-Invasive [place] [address] Mushtaq Murphy, TOURIST CABIN KEEPER 10/31/2024 11:00 AM EST Office Visit Cardiology at [address] [address] Mushtaq Murphy, FREDRICK documented as of this encounter Procedures Procedure Name Priority Date/Time Associated Diagnosis Comments PSA (ULTRASENSITIVE), TOTAL AND FREE Routine 04/23/2024 1:09 PM EDT Elevated prostate specific antigen (PSA) documented in this encounter Results * (ABNORMAL) PSA (Ultrasensitive), total and free (04/23/2024 1:09 PM EDT) Prostate Specific Antigen (Ultrasensitive) 5.24(H) 0.00-4.00 ng/mL ng/ml 04/23/2024 5:18 PM EDT [facility] Comment:The reference interv al (0 - 4 ng/mL) is applicable to individuals with an intact prostate. Values within this reference interval may indicate recurrence in those who have undergone radical prostatectomy. This result was generated using a [employer] Osiel immunoassay. Results obtained from other methods or manufacturers cannot be used interchangeably with this method. Prostate Specific Antigen, Free 1.1 ng/ml 04/23/2024 5:18 PM EDT [facility] Comment:This result was gene rated using a [employer] Osiel immunoassay. Results obtained from other methods or manufacturers cannot be used interchangeably with this method. PSA % Free 21 % 04/23/2024 5:18 PM EDT [facility] Comment: Probability of finding PLANT EQUIPMENT ENGINEER on needle biopsy by age in years: [...] EDT 04/23/2024 4:50 PM EDT Alexia Mtz TOURIST CABIN KEEPER CHEMISTRY ORDERABLES Performing Organization Address City/State/[facility] Co de Phone Number [facility] [place] [address] documented in this encounter Visit Diagnoses Diagnosis Elevated prostate specific antigen (PSA) documented in this encounter Care Teams Sugar Cane Planting Equipment Operator Relationship Specialty Start Date End Date Alexia Mtz, FREDRICK [address] [place] [address] PCP - General Family Medicine 07/30/24 documented as of this encounter
--- OUTSIDE RECORDS SUMMARY | 2024-10-08 11:21 | XMS_ITS | Encounter Summary ---
[place] [address] Care Team Providers Care Warehouse Pricing And Inventory Clerk Name Role Phone Yoel Artis FREDRICK Primary Care Provider [phone] Encounter Details Date Type Department Care Team (Late st Contact Info) Description 07/28/2024 Interpretation Only [address] [phone] Quinten Coffey MD [address] [place] [address] Social History Tobacco Use Types Packs/Day Years [...] 9:30 AM EST Appointment Non-[place]vasive [place] [address] Mushtaq Murphy APRN 10/31/2024 11:00 AM EST Office Visit Cardiology at [address] [address] Mushtaq Murphy, ANIMAL SCIENCE INSTRUCTOR documented as of this encounter Procedures Procedure Name Priority Date/Time Associated Diagnosis Comments XR CHEST ONE VIEW STAT 07/28/2024 10: 22 AM EST documented in this encounter Results * XR Chest One View (07/28/2024 10:22 AM EST) PT CLASS E RAD ADMITDTTM [id number] RAD PT RAD INFO [id number]^Potter ^Quinten RAD EXAM DESC XCXR1^XR Chest 1 View^[facility] WORKSTATION ID [id number] RAD Anatomical Region Laterality [...] questions please contact the health urgent care technician that requested your imaging first. [...] have questions please contactthe health urgent care technician that requested your imaging first. Quinten Coffey MD IMG DX ORDERABLES documented in this encounter Visit Diagnoses Not on filedocumented in this encounter Care Teams Warehouse Pricing And Inventory Clerk Relationship Specialty Start Date End Date Yoel Artis APRN [address] [place] [address] PCP - General Internal Medicine 11/18/22 07/29/24 documented as of this encounter
--- OUTSIDE RECORDS SUMMARY | 2024-10-08 11:21 | XMS_ITS | Encounter Summary ---
[place] [address] Care Team Providers Care Practicing Md Anesthesiologist Name Role Phone Yoel Artis FREDRICK Primary Care Provider [phone] Encounter Details Date Type Department Care Team (Late st Contact Info) Description 01/16/2024 Interpretation Only [facility] [address] [place] [address] Chaparro Montana MD [address] [place] [address] Social History Tobacco Use Types Packs/Day Years [...] 9:30 AM EST Appointment Non[place] [address] Mushtaq Murphy APRN 10/31/2024 11:00 AM EST Office Visit Cardiology at [address] [address] Mushtaq Murphy, ELECTRICAL TRYOUT PERSON documented as of this encounter Procedures Procedure Name Priority Date/Time Associated Diagnosis Comments XR CHEST ONE VIEW STAT 01/16/2024 4:0 4 PM EDT documented in this encounter Results * XR Chest One View (01/16/2024 4:04 PM EDT) PT CLASS E RAD ADMITDTTM [id number] RAD PT RAD INFO [id number]^Haniss henry^Chaparro RAD EXAM DESC XCXR1^XR Chest 1 View^[facility] WORKSTATION ID [id number] RAD Anatomical Region Laterality Modality Chest N/A [...] have questions please contact the health healthcare economics manager that requested your imaging first. ? [...] who have questions please contactthe health healthcare economics manager that requested your imaging first. Chaparro Montana MD IMG DX ORDERABLES documented in this encounter Visit Diagnoses Not on filedocumented in this encounter Care Teams Practicing Md Anesthesiologist Relationship Specialty Start Date End Date Yoel Artis APRN [address] [place] [address] PCP - General Internal Medicine 11/18/22 07/29/24 documented as of this encounter
--- OUTSIDE RECORDS SUMMARY | 2024-10-08 11:21 | XMS_ITS | Encounter Summary ---
Author Organization [facility] Address [facility] [place] [address] Care Team Providers Care Watermelon Inspector Name Role Phone Yoel Artis FREDRICK Primary Care Provider [phone] Encounter Details Date Type Department Care Team (Late st Contact Info) Description 07/29/2024 [place] [phone] Ivan Hernandez MD [facility] [place] [address] Social History Tobacco Use Types Packs/Day Years Used Date Smoking Tobacco: Former Cigarettes Smokeless Tobacco: Never Alcohol Use Standard Drinks/Week Comments Not Currently 0 (1 standard drink = 0.6 oz pur e alcohol) [facility] Utilities Answer Date Recorded In the past 12 months has e [employer], gas, oil, or water Mobile Share[employer] threatened to shut off services in your [...] any time in the past 12 m [facility], were you homeless or [...] Hospital If Hospital to which patient presented= [facility]: ED Walk In Medical History (prior to [...] Unfractionated Heparin Plan STEMI Alert called: Yes Podiatrist Orthopedic Activated by: Senior Facilities Manager Initial Disposition: Admit Podiatrist Orthopedic documented in this encounter Plan of Treatment Upcoming Encounters Date Type Department Care Team (Late st Contact Info) Description 10/31/2024 9:30 AM EST Appointment Non-[place] [address] Mushtaq Murphy APRN 10/31/2024 11:00 AM EST Office Visit Cardiology at [address] [address] Mushtaq Murphy APRN documented as of this encounter Visit Diagnoses Not on filedocumented in this encounter Care Teams Watermelon Inspector Relationship Specialty Start Date End Date Yoel Artis APRN [address] [place] [address] PCP - General Internal Medicine 11/18/22 07/29/24 documented as of this encounter
--- OUTSIDE RECORDS SUMMARY | 2024-10-08 11:21 | XMS_ITS | Encounter Summary ---
[place] [address] Care Team Providers Care Corporate Development Associate Name Role Phone Alexia Mtz FREDRICK Primary Care Provider [phone] Encounter Details Date Type Department Care Team (Late st Contact Info) Description 07/29/2024 External Results [place] [phone] Social History Tobacco Use Types Packs/Day Years [...] any time in the past 12 m [facility], were you homeless or [...] 9:30 AM EST Appointment Non-Invasive [place] [address] Mushtaq Murphy, FREDRICK 10/31/2024 11:00 AM EST Office Visit Cardiology at [address] [address] Mushtaq Murphy, FREDRICK documented as of this encounter Procedures Procedure Name Priority Date/Time Associated Diagnosis Comments MISC EXTERNAL CARDIOLOGY RESULT Routine 07/29/2024 10:13 AM EST documented in this encounter Results * External Cardiology Result (07/29/2024 10:13 AM EST) Anatomical Region Laterality Modality Other Historical Provider EXTERNAL CARDIOLO GY RESULT documented in this encounter Visit Diagnoses Not on filedocumented in this encounter Care Teams Corporate Development Associate Relationship Specialty Start Date End Date Alexia Mtz APRN [address] [place] [address] PCP - General Family Medicine 07/30/24 documented as of this encounter
--- OUTSIDE RECORDS SUMMARY | 2024-10-08 11:21 | XMS_ITS | Encounter Summary ---
[place] [address] Care Team Providers Care Dba Name Role Phone Yoel Artis FREDRICK Primary Care Provider [phone] Reason for Visit * Auth/Cert (Routine) Specialty Diagnoses / Procedures Referred By Theodore t Referred To Contact Diagnoses Anal spasm Fecal smearing Constipation, unspecified Rectal pain, fecal smearing Procedures PRO COLONOSCOPY, DIAGNOSTIC PRO COLONOSCOPY, BIOPSY PRO COLONOSCOPY, REMV LESN, SNARE COLONOSCOPY, DIAGNOSTIC (WRVU 3.26) Brandan Mcgovern MD [facility] [place] [address] [facility] Referral ID Status Reason Start Date Expiration Date Visits Re quested Visits Authorized [id number] 1 1 Encounter Details Date Type Department Care Team (Late st Contact Info) Description 08/30/2023 11:00 AM EST - 08/30/2023 12:00 PM EST [place] [address] Brandan Mcgovern MD [facility] [place] [address] COLONOSCOPY, POLYPECTOMY, REMOVAL LESION BY SNARE (WRVU [...] occurs, please contact your Doctor. Please call [phone] before 8pm Mon-Fri with problems, questions or concerns. If you call after 8pm or on weekends, call the Hospital at [phone] and ask to speak to the Record Label Internship contact center analyst and the coin rolling machine operator will contact that person for you. When should you call for help? Call [phone] anytime you think you may need emergency [...] any problems. Where can you learn more? [facility] View your After Visit Summary and more online at [email or web address] If you would like to provide feedback about your hospital experience, please call the Office of Patient and Family Relations at . If you have received this After Visit Summary in error, please immediately return it in person to the department, or notify the [facility] Privacy Office by calling toll free at between the hours of 8AM and 5PM to arrange for our retrieval of the documents at no cost to you. Content Version: 12.2 ?? [id number] [employer]. Care instructions adapted under license by [facility]. If you have questions about a medical condition or this instruction, always ask your healthcare professional. [employer] disclaims any warranty or liability for [...] evening. 04/17/2023 08/04/2024 nitroGLYcerin (NITROLINGUAL) 400 mcg/spray [place], Non-AerosolIndications:P roctalgia fugax,Fecal smearing,Constipation, unspecified constipation type [...] 9:30 AM EST Appointment Non-[place] [address] Mushtaq Murphy APRN 10/31/2024 11:00 AM EST Office Visit Cardiology at [address] [phone] Mushtaq Murphy APRN documented as of this encounter Procedures Procedure Name Priority Date/Time Associated Diagnosis Comments SPECIMEN TO PATHOLOGY Routine 08/30/2023 11:23 AM EST SURGICAL PATHOLOGY REPORT Routine 08/30/2023 11:21 AM EST COLONOSCOPY Routine 08/30/2023 10:57 AM EST Colonoscopy, Antonieta Valadez ([id number]) 08/30/2023 10:44 AM EST Proctalgia fugax Fecal smearing Constipation, unspecified constipation type documented in this encounter Results * Specimen to Pathology (08/30/2023 11:23 AM EST) AP Specimen 08/30/2023 11:2 3 AM EST 08/30/2023 11:23 AM EST Narrative [facility] - 08/30/2023 11:23 AM EST Specimen requisition ordered. ??Separate Pathology report to follow Brandan Mcgovern MD PATHOLOGY/CYTOLOGY O RDERASHAY [facility] [place] [address] * Surgical Pathology Report (08/30/2023 11:21 AM EST) Final Diagnosis [id number] ? Location: 4T; EA12; A The signing pathologist has (i) examined the relevant preparation(s) for the specimen(s) and (ii) rendered or confirmed the diagnosis(es). . ?Surgical Pathology DIAGNOSIS A - Sigmoid colon polyp, resection (Multiple): - ??Tubular adenoma. CR-PX Electronically signed by: ?Blake ORTEGA PhD, Yulia Verified: ??09/08/2023 14:48 ??Pathologist Performed at: ??-[facility] Dept. of Pathology, [place] [address] Therapist'S Assistant: Fercho Chan MD, AP, ??CLIA Certificate: [id number] SPECIMEN(S) SUBMITTED A - Sigmoid colon polyp, resection (Multiple) CLINICAL INFORMATION 73-year-old male, history of rectal pain SPECIMEN PROCESSING A - Labeled/Fixativ e: Sigmoid colon polyp, formalin. Quantity/Size: Single, 0.8 cm. Tissue Description: Soft, candelaria tissue. Sections/Proces sing: Submitted in toto ??in 1 cassette labeled A1. ??sdy 09/08/2023 2:48 PM EST [facility] GI Biopsy 08/30/2023 11:2 1 AM EST 08/30/2023 11:21 AM EST Brandan Mcgovern MD PATHOLOGY/CYTOLOGY Veronica MORENO [facility] [place] [address] [facility] [place] [address] * COLONOSCOPY (08/30/2023 10:57 AM EST) COLONOSCOPY [facility] Endoscopy Procedure Date: 08/30/2023 10:57 AM ? Patient Name: Korey Montoya ? Date of : 1950 ? Age: 73 ? Order #: [id number] ? Instrument Name: [id number] ? Procedure: ? Colonoscopy Indications: ? Rectal [...] preparation was evaluated ? using the BBPS ([place] Bowel ? Preparation Scale) with scores of: [...] RN) documented in this encounter Care Teams Dba Relationship Specialty Start Date End Date Yoel Artis APRN [address] [place] [address] PCP - General Internal Medicine 11/18/22 07/29/24 documented as of this encounter
--- OUTSIDE RECORDS SUMMARY | 2024-10-08 11:21 | XMS_ITS | Encounter Summary ---
Author Organization [facility] [place] [address] Care Team Providers Care Pancake Professional Name Role Phone Yoel Artis Ute ALCALA Primary Care Provider Encounter Details Date Type Department Care Team (Late st Contact Info) Description 01/16/2024 5:46 PM EDT - 01/16/2024 11:59 PM EDT Hospital Encounter [facility] [address] [place] [address] Chaparro Montana MD [address] [place] [address] Discharge Disposition: Home Social History Tobacco Use [...] evening. 04/17/2023 08/04/2024 nitroGLYcerin (NITROLINGUAL) 400 mcg/spray [place], Non-AerosolIndications:P roctalgia fugax,Fecal smearing,Constipation, unspecified constipation type 1 spray to anus for proctalgia fugax as needed, not to exceed once daily 12 g 06/01/2023 08/04/2024 documented as of this encounter Plan of Treatment Upcoming Encounters Date Type Department Care Team (Late st Contact Info) Description 10/31/2024 9:30 AM EST Appointment Non-[place]vasive [place] [address] Mushtaq Murphy, FREDRICK 10/31/2024 11:00 AM EST Office Visit Cardiology at [address] [address] Mushtaq Murphy, FREDRICK documented as of this encounter Procedures Procedure Name Priority Date/Time Associated Diagnosis Comments URINE CULTURE Routine 01/16/2024 4:00 PM EDT documented in this encounter Results * Urine culture (01/16/2024 4:00 PM EDT) Urine Culture No growth (Less than 1,000 cfu/ml). [facility] Urine 01/16/2024 4:00 PM EDT 01/16/2024 10:36 PM EDT Narrative Resulting Agency Comment Spec In Lab Chaparro Montana MD MICROBIOLOGY - [facility] ORDERABLES [facility] [place] [place] [address] documented in this encounter Visit Diagnoses Not on filedocumented in this encounter Care Teams Pancake Professional Relationship Specialty Start Date End Date Yoel Artis APRN [address] [place] [address] PCP - General Internal Medicine 11/18/22 07/29/24 documented as of this encounter
--- OUTSIDE RECORDS SUMMARY | 2024-10-08 11:21 | XMS_ITS | Encounter Summary ---
[place] [address] Care Team Providers Care Senior Controls Technician Name Role Phone Yoel Artis Ute ALCALA Primary Care Provider [phone] Reason for Visit * Auth/Cert (Routine) Specialty Diagnoses / Procedures Referred By Theodore t Referred To Contact Diagnoses STEMI (ST elevation myocardial infarction) STEMI Procedures ER IPI Vahe Marvin MD [facility] [place] [address] [facility] Referral ID Status Reason Start Date Expiration Date Visits Re quested Visits Authorized [id number] 1 1 Encounter Details Date Type Department Care Team (Late st Contact Info) Description 07/29/2024 12:00 PM EST - 07/29/2024 12:54 PM EST Surgery [place] [address] Vahe Marvin MD [facility] [place] [address] CARDIAC CATHETERIZATION Social History Tobacco Use Types Packs/Day Years Used Date Smoking Tobacco: Former Cigarettes Smokeless Tobacco: Never Alcohol Use Standard Drinks/Week Comments Not Currently 0 (1 standard drink = 0.6 oz pur e alcohol) [facility] Utilities Answer Date Recorded In the [...] Korey Montoya Patient Age: 74 y.o. Language: Mosotho Race: White Ethnicity: Not nor Admit date: [...] please contact your inpatient physician through the [facility] Hog Handler . Issues afterhours and on weekends will [...] EKG. Patient transferred via air ambulance to [facility] on 07/29 for LHC and LOW to [...] EKG. Was transferred via air ambulance to [facility] for further management and LHC demonstrated 100% [...] the next year. Access was via right SAP BUSINESS INTELLIGENCE CONSULTANT and this sitewas clean, dry and [...] for Chest pain. Replaces: nitroGLYcerin 400 mcg/spray [place], Non-Aerosol 0.4 mg Quantity: 90 tablet [...] Refills: 0 STOPPED Medications nitroGLYcerin 400 mcg/spray [place], Non-Aerosol Commonly known as: NITROLINGUAL Replaced [...] of one year. After this time, your before and after school daycare worker will determine if you need to continue [...] away. Stay on the phone. The emergency liner machine operator will tell you what to [...] appointments: During 8am-5pm Tuesday through Tuesday call [phone] to speak with a nurse in the cardiology clinic All other times call [phone] and ask to speak to the employee benefits attorney insulation board calender operator. Follow up Appointments: PCP Alexia Mtz, FIELD ARTILLERY OFFICER [phone]. Please call to establish a follow up appointment within 1-2 weeks of discharge. Cardiology. Referral to heart failure has been sent. General Instructions None Future Appointments and Orders Future Orders Complete By Expires Referral to Cardiac Rehab [IRK257 Custom] As directed Process Instructions: If no [...] of one year. After this time, your before and after school daycare worker will determine if you need to continue [...] away. Stay on the phone. The emergency liner machine operator will tell you what to [...] appointments: During 8am-5pm Tuesday through Tuesday call [phone] to speak with a nurse in the cardiology clinic All other times call [phone] and ask to speak to the employee benefits attorney insulation board calender operator. Follow up Appointments: PCP Alexia Mtz, FIELD ARTILLERY OFFICER [phone]. Please call to establish a follow up [...] EKG. Patient transferred via air ambulance to [facility] on 07/29 for LHC and LOW to LAD for 100% occlusion Social History: Pt lives with his in a 1 level home with 2 NAOMI. 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 [...] Total time: 35 (tef) minutes Time IN/OUT: 2002-1014 ZAIDA DUBOSE PT Pager: [phone] Physical Therapy Inpatient Rehabilitation Department * Yrn Velazquez MD - 08/03/2024 10:38 AM EST CV HOSPITALIST 2 - [facility] DAILY PROGRESS NOTE Page [phone] to reach a provider 04/04 Admit Date: [...] Compared to the overnight study by the insulation board calender operator fellow the impella position is stable. 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 [facility] 07/29/24 Conclusions: * One vessel coronary artery disease (LAD) * Mild pulmonary hypertension * Elevated pulmonary capillary wedge pressure * Successful stent insertion of the proximal LAD lesion * See Dual Antiplatelet (DAPT) Recommendations above * Successful impella placement for cardiogenic shock. Telemetry: I have personally reviewed and interpreted the telemetry from the last 24 hours. [facility] Assessment: ASSESSMENT: Korey Montoya is a 74 y.o. male w/ PMH of hypertension, HLD, and BPH who presents for chief concern of chest pain after being found to have ST elevations on EKG. Patient transferred via air ambulance to [facility] on 07/29 for LHC and LOW to [...] to be determined OT: PCP Alexia Mtz, FIELD ARTILLERY OFFICER [phone] * Zaida Dubose, PT - 08/02/2024 2:08 PM EST Physical Therapy Evaluation Patient profile: Korey Montoya is a 74 y.o. male w/ PMH of hypertension, HLD, and BPH who presents for chief concern of chest pain after being found to have ST elevations on EKG. Patient transferred via air ambulance to [facility] on 07/29 for LHC and LOW to LAD for 100% occlusion Social History: Pt lives with his in a 1 level home with 2 NAOMI. 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 [...] Total time: 37 (eval) minutes Time IN/OUT: 3892-9093 ZAIDA DUBOSE PT Pager: [phone] Physical Therapy Inpatient Rehabilitation Department * Gagan [...] EKG. Patient transferred via air ambulance to [facility] on 07/29 for LHC and LOW to LAD for 100% occlusion. TTE showed apical akinesis and inferior hypokinesis with EF 20%. RHC showed elevated filling pressures. Impella placed and P-level 6 at time of transfer to [facility]. CI initially 1.97, improved to [...] PCP: Alexia Mtz APRN PCP phone number: [phone] Date of Admission: 07/29/2024 ( Hospital Day 4 days ) Attending:Bridgette Stauffre MD ID: Korey Montoya is a 74 y.o. male w/ PMH of hypertension, HLD, and BPH on Hospital Day4 for chief concern of chest pain after being found to have ST elevations on EKG. Patient transferred via air ambulance to [facility] on 07/29 for LHC and LOW to [...] 07/29/24 1621 PHART 7.48* 7.44 7.38 7.37 LSV2RVH 29* 29* 34* 36 PO2ART 71* 109* 141* 71* BXS0CKU 20.6 19.4* 19.5* 20.4 VBG (Venous Blood Gas) Recent Labs 07/29/24 1401 PHVEN 7.30* PO2VEN 39 SMB9HAI 20.1* Mixed Venous Sat No results for input(s): C6QZPW2 in the last 168 hours. Objective: Vitals [...] 07/29/24 1621 PHART 7.48* 7.44 7.38 7.37 ZVF2CLG 29* 29* 34* 36 PO2ART 71* 109* 141* 71* RJC8LKO 20.6 19.4* 19.5* 20.4 VBG (Venous Blood Gas) Recent Labs 07/29/24 1401 PHVEN 7.30* PO2VEN 39 UGX0VBD 20.1* Mixed Venous Sat No results for input(s): M0JFJX3 in the last 168 hours. Microbiology: Microbiology Results (Last 30 days) Procedure Component Value Units Date/Time Blood culture [[id number]] Collected: 07/29/24 160 Lab Status: Preliminary result Specimen: Blood, Venous Updated: 08/01/24 170 Blood Culture No growth at 72 hours Blood culture [[id number]] Collected: 07/29/24 160 Lab Status: Preliminary result Specimen: Blood, Venous Updated: 08/01/24 170 Blood Culture No growth at 72 hours Imaging: Results for orders placed or performed during the hospital encounter of 07/29/24 XR Chest One View (Exam End: 07/29/2024 2:30 PM) Result Value WORKSTATION ID [id number] Impression 1. No pulmonary edema. 2. No pleural effusion. 3. No pneumothorax. Thank you for letting us participate in the care of this patient. If you are a health care provider and have any questions regarding this report, please contact the number below. For patients who have questions please contact the health child care centre manager that requested your imaging first. Electronically signed by: Chris Candelaria MD, [facility] ([phone]), at 07/29/2024 3:21 PM TTE ( 07/30/24) [...] Compared to the overnight study by the insulation board calender operator fellow the impella position is stable. [...] EKG. Patient transferred via air ambulance to [facility] on 07/29 for LHC and LOW to [...] Susannah Ornelas MD Internal Medicine, PGY-1 Cardiology, [facility] 08/02/24 12:45 PM CARDIOLOGY STAFF [...] today). Transfer to floor. Krystal Parker MD, [facility], [facility] Staff Child Welfare Social Worker traffic technician * Gagan Catherine MD - 08/01/2024 11:12 [...] EKG. Patient transferred via air ambulance to [facility] on 07/29 for LHC and LOW to [...] PCP: Alexia Mtz APRN PCP phone number: [phone] Date of Admission: 07/29/2024 ( Hospital Day 3 days ) Attending:Krystal Parker MD ID: Korey Montoya is a 74 y.o. male w/ PMH of hypertension, HLD, and BPH on Hospital Day3 for chief concern of chest pain after being found to have ST elevations on EKG. Patient transferred via air ambulance to [facility] on 07/29 for LHC and LOW to [...] 07/29/24 1621 PHART 7.48* 7.44 7.38 7.37 PUR1TRD 29* 29* 34* 36 PO2ART 71* 109* 141* 71* PYD9WAM 20.6 19.4* 19.5* 20.4 VBG (Venous Blood Gas) Recent Labs 07/29/24 1401 PHVEN 7.30* PO2VEN 39 RFQ2NRW 20.1* Mixed Venous Sat No results for input(s): S3UPEE4 in the last 168 hours. PA Catheter [...] 07/29/24 1621 PHART 7.48* 7.44 7.38 7.37 DRY3HCU 29* 29* 34* 36 PO2ART 71* 109* 141* 71* QYM2DVG 20.6 19.4* 19.5* 20.4 VBG (Venous Blood Gas) Recent Labs 07/29/24 1401 PHVEN 7.30* PO2VEN 39 RSC7ADJ 20.1* Mixed Venous Sat No results for input(s): N6JBUB6 in the last 168 hours. Microbiology: Microbiology Results (Last 30 days) Procedure Component Value Units Date/Time Blood culture [[id number]] Collected: 07/29/241607 Lab Status: Preliminary result Specimen: Blood, Venous Updated: 07/31/241700 Blood Culture No growth at 48 hours Blood culture [[id number]] Collected: 07/29/241607 Lab Status: Preliminary result Specimen: Blood, Venous Updated: 07/31/241700 Blood Culture No growth at 48 hours Imaging: Results for orders placed or performed during the hospital encounter of 07/29/24 XR Chest One View (Exam End: 07/29/2024 2:30 PM) Result Value WORKSTATION ID [id number] Impression 1. No pulmonary edema. 2. No pleural effusion. 3. No pneumothorax. Thank you for letting us participate in the care of this patient. If you are a health care provider and have any questions regarding this report, please contact the number below. For patients who have questions please contact the health child care centre manager that requested your imaging first. Electronically signed by: Chris Candelaria MD, [facility] ([phone]), at 07/29/2024 3:21 PM TTE ( 07/30/24) [...] Compared to the overnight study by the insulation board calender operator fellow the impella position is stable. [...] EKG. Patient transferred via air ambulance to [facility] on 07/29 for LHC and LOW to [...] with him; questions answered. Krystal Parker MD, [facility], [facility] Staff Child Welfare Social Worker traffic technician * Krystal Parker MD - 07/31/2024 1:06 [...] EKG. Patient transferred via air ambulance to [facility] on 07/29 for LHC and LOW to LAD for 100% occlusion. TTE showed apical akinesis and inferior hypokinesis with EF 20%. RHC showed elevated filling pressures. Impella placed and P-level 6 at time of transfer to [facility]. CI initially 1.97, improved to 2.2 After impella. Received about 3 L of fluid during procedural course. Patient initially required norepinephrine 30, epinephrine 10, and vasopressin 0.04 for hemodynamic support, which was weaned upon arrival to [facility] to norepinephrine 20and levo 0.04 [...] PCP: Alexia Mtz APRN PCP phone number: [phone] Date of Admission: 07/29/2024 ( Hospital Day 2 days ) Attending:Krystal Parker MD ID: Korey Montoya is a 74 y.o. male w/ PMH of hypertension, HLD, and BPH on Hospital Day2 for chief concern of chest pain after being found to have ST elevations on EKG. Patient transferred via air ambulance to [facility] on 07/29 for LHC and LOW to [...] 0057 07/29/24 1621 PHART 7.44 7.38 7.37 TTC5BNI 29* 34* 36 PO2ART 109* 141* 71* BMH7XWE 19.4* 19.5* 20.4 VBG (Venous Blood Gas) Recent Labs 07/29/24 1401 PHVEN 7.30* PO2VEN 39 IBJ5GRB 20.1* Mixed Venous Sat No results for input(s): F3IYRY5 in the last 168 hours. PA Catheter [...] 0057 07/29/24 1621 PHART 7.44 7.38 7.37 JEW9CUF 29* 34* 36 PO2ART 109* 141* 71* XMI3JTQ 19.4* 19.5* 20.4 VBG (Venous Blood Gas) Recent Labs 07/29/24 1401 PHVEN 7.30* PO2VEN 39 FGA2JSR 20.1* Mixed Venous Sat No results for input(s): D1HHUM5 in the last 168 hours. Microbiology: Microbiology Results (Last 30 days) Procedure Component Value Units Date/Time Blood culture [[id number]] Collected: 07/29/24 160 Lab Status: Preliminary result Specimen: Blood, Venous Updated: 07/30/24 170 Blood Culture No Growth at 18-24 hrs. Blood culture [[id number]] Collected: 07/29/241607 Lab Status: Preliminary result Specimen: Blood, Venous Updated: 07/30/241700 Blood Culture No Growth at 18-24 hrs. Imaging: Results for orders placed or performed during the hospital encounter of 07/29/24 XR Chest One View (Exam End: 07/29/2024 2:30 PM) Result Value WORKSTATION ID [id number] Impression 1. No pulmonary edema. 2. No pleural effusion. 3. No pneumothorax. Thank you for letting us participate in the care of this patient. If you are a health care provider and have any questions regarding this report, please contact the number below. For patients who have questions please contact the health child care centre manager that requested your imaging first. Electronically signed by: Chris Candelaria MD, [facility] ([phone]), at 07/29/2024 3:21 PM TTE ( 07/30/24) [...] Compared to the overnight study by the insulation board calender operator fellow the impella position is stable. [...] EKG. Patient transferred via air ambulance to [facility] on 07/29 for LHC and LOW to [...] work to optimize volume status while continuing sqpaakg-dqsutp-obnthxhgtz therapies at this time. Obtain comprehensive TTE. [...] EKG. Patient transferred via air ambulance to [facility] on 07/29 for LHC and LOW to LAD for 100% occlusion. TTE showed apical akinesis and inferior hypokinesis with EF 20%. RHC showed elevated filling pressures. Impella placed and P-level 6 at time of transfer to [facility]. CI initially 1.97, improved to 2.2 After impella. Received about 3 L of fluid during procedural course. Patient initially required norepinephrine 30, epinephrine 10, and vasopressin 0.04 for hemodynamic support, which was weaned upon arrival to [facility] to norepinephrine 20and levo 0.04 [...] PCP: Yoel Artis APRN PCP phone number: [phone] Date of Admission: 07/29/2024 ( Hospital Day 1 day ) Attending:Aubree Silverio MD ID: Korey Montoya is a 74 y.o. male w/ PMH of hypertension, HLD, and BPH on Hospital Day1 for chief concern of chest pain after being found to have ST elevations on EKG. Patient transferred via air ambulance to [facility] on 07/29 for LHC and LOW to [...] 0057 07/29/24 1621 PHART 7.44 7.38 7.37 COB9KBG 29* 34* 36 PO2ART 109* 141* 71* XFR1UQS 19.4* 19.5* 20.4 VBG (Venous Blood Gas) Recent Labs 07/29/24 1401 PHVEN 7.30* PO2VEN 39 NUC9MIJ 20.1* Lactate ( Last 12 hours) 1.3 >> 1.2 Mixed Venous Sat No results for input(s): J6MLYB6 in the last 168 hours. PA Catheter [...] 0057 07/29/24 1621 PHART 7.44 7.38 7.37 FNV3VHT 29* 34* 36 PO2ART 109* 141* 71* ZOZ1MXY 19.4* 19.5* 20.4 VBG (Venous Blood Gas) Recent Labs 07/29/24 1401 PHVEN 7.30* PO2VEN 39 QTB2FCJ 20.1* Mixed Venous Sat No results for input(s): I8WWQK9 in the last 168 hours. Microbiology: Microbiology Results (Last 30 days) Procedure Component Value Units Date/Time Blood culture [[id number]] Collected: 07/29/24 1608 Lab Status: In process Specimen: Blood, Venous Updated: 07/29/24 1626 Blood culture [[id number]] Collected: 07/29/24 1608 Lab Status: In process Specimen: Blood, Venous Updated: 07/29/24 1615 Imaging: Results for orders placed or performed during the hospital encounter of 07/29/24 XR Chest One View (Exam End: 07/29/2024 2:30 PM) Result Value WORKSTATION ID [id number] Impression 1. No pulmonary edema. 2. No pleural effusion. 3. No pneumothorax. Thank you for letting us participate in the care of this patient. If you are a health care provider and have any questions regarding this report, please contact the number below. For patients who have questions please contact the health child care centre manager that requested your imaging first. Medications [...] EKG. Patient transferred via air ambulance to [facility] on 07/29 for LHC and LOW to [...] EKG. Patient transferred via air ambulance to [facility] on 07/29 for LHC and LOW to [...] EKG. Was transferred via air ambulance to [facility] for further management and [facility] demo nstrated 100% occlusion. No significant RCA, LMCA, or LCX disease. LOW placed in LAD with some residual distal disease meriting placement of overlapping distal stent. TTE showed apical akinesis and inferior hypokinesis with EF 20%. RHC showed elevated filling pressures. Impella placed and P-level 6 at time of transfer to [facility]. CI initially 1.97, improved to 2.2 After impella. Received about 3 L of fluid during procedural course. Patient initially required norepinephrine, epinephrine, and vasopressin for hemodynamic support, which was weaned upon arrival to [facility] to norepinephrine 20 and levo [...] (WRVU 4.57) performed by Brandan Mcgovern MD Pending sale to [facility] ENDOSCOPY Significant Family History: Family [...] mouth. Past Week nitroGLYcerin (NITROLINGUAL) 400 mcg/spray [place], Non-Aerosol 1 spray to anus for [...] 3.5 guiding catheter and a 3.5 Fr [place] [facility] [address] 20 Mhz using Manual pullback. Imaging [...] priority for the procedure was Emergent. The [facility] indication for the procedure [...] atmospheres. A premounted 3.00 x 22 mm [place] (LOW) was deployed with a maximum inflation [...] A premounted 3.00 x 08 mm [place] (LOW) was deployed with a maximum inflation [...] a limited study performed by a fellow insulation board calender operator to evaluate for cardiogenic shock with [...] Compared to the overnight study by the insulation board calender operator fellow the impella position is stable. [...] EKG. Patient transferred via air ambulance to [facility] on 07/29 for LHC and LOW to [...] PCP: Yoel Artis APRN PCP phone number: [phone] Date of Admission: 07/29/2024 ( Hospital Day 0 days ) Attending:Aubree Silverio MD ID: Korey Montoya is a 74 y.o. male w/ PMH of hypertension, HLD, and BPH who presents for chief concern of chest pain after being found to have ST elevations on EKG. Patient transferred via air ambulance to [facility] on 07/29 for LHC and LOW to LAD for 100% occlusion. HPI: Korey Montoya is a 74 y.o. male w/ PMH of hypertension, HLD, and BPH who presents for chief concern of chest pain after being found to have ST elevations on EKG. Patient transferred via air ambulance to [facility] on 07/29 for LHC and LOW to [...] EKG. Was transferred via air ambulance to [facility] for further management and LHC demonstrated 100% [...] (WRVU 4.57) performed by Brandan Mcgovern MD Pending sale to [facility] ENDOSCOPY Family History Family History [...] Blood Gas) No results for input(s): PHART, ZXR3BUL, PO2ART, CWV1CSJ, LACTATEVEN, DIE5JLI, PFRATIOART2 in the last 168 hours. VBG (Venous Blood Gas) Recent Labs 07/29/24 1401 PHVEN 7.30* PO2VEN 39 NAY4UFC 20.1* Mixed Venous Sat No results for input(s): S3IJHX3 in the last 168 hours. PA Catheter [...] Blood Gas) No results for input(s): PHART, PGJ4HZY, PO2ART, YGD1NHX, LACTATEVEN, MQP7QWP, PFRATIOART2 in the last 168 hours. VBG (Venous Blood Gas) Recent Labs 07/29/24 1401 PHVEN 7.30* PO2VEN 39 SYQ2PZP 20.1* Mixed Venous Sat No results for input(s): L8WTNX7 in the last 168 hours. Microbiology: Microbiology [...] EKG. Patient transferred via air ambulance to [facility] on 07/29 for LHC. Found to have 100% occlusion of LAD for which he underwent LOW to LAD.Otherwise no other significant vessel disease. Fahad is currently hemodynamically tenuous but improving upon admission to [facility], requiring hemodynamic support with norepinephrine and vasopressin at time of admission along with mechanical support with Impella device. Reassuringly, he demonstrates decreasing pressor requirements since admission to [facility], with epinephrine completely weaned. He [...] Bernardo Amos MD Internal Medicine, PGY-3 Cardiology, [facility] 07/29/24 3:14 PM Cardiology Attending [...] MD, FACP, FACC Section of Cardiovascular Medicine [facility] Lead Technicianstage rigger [facility] [employer] [facility] This patient meets or has [...] to the planned procedure. Hand Hygiene: The international sales representative did perform hand hygiene prior to arterial [...] ease. Good wave form. Ivan Hernandez MD Knitting Inspector Associated attestation - Rolando Yeh MD [...] No Patient is insured through: Primary Insurance: [employer] MANAGED MEDICARE Payor: [employer] MANAGED MEDICARE / [facility]TE / Product Type: *No [...] of Discharge: 08/04/2024 Gaby Wong RN, CM [phone] * Initial Assessments - Char Meza OT - 08/03/2024 10:00 AM EST Occupational Therapy Evaluation Patient profile: Korey Montoya is a 74 y.o. male admitted on 07/29/2024 w/ PMH of hypertension, HLD, and BPH who presents for chief concern of chest pain after being found to have ST elevations onEKG. Patient transferred via air ambulance to [facility] on 07/29 for LHC and LOW to LAD for 100% occlusion. Past Medical History: Diagnosis Date ADHD HLD (hyperlipidemia) HTN (hypertension) Tremor Past Surgical History: Procedure Laterality Date HAND SURGERY PRO COLONOSCOPY, REMV LESN, SNARE N/A 08/30/2023 COLONOSCOPY, POLYPECTOMY, REMOVAL LESION BY SNARE (WRVU 4.57) performed by Brandan Mcgovern MD Pending sale to [facility] ENDOS[facility] Social History: Patient lives with his . Home Setup: 2 NAOMI to a 1 level home. DME: none Baseline ADL/Mobility: Independent with ADLs and IADLs. Enjoys walking. able assist as needed. Precautions/Special Considerations: Full code. Risk for falls. Subjective: I have access to an [employer] gym. (Educated to wait for MD to [...] evaluation only Total Minutes, Occupational Therapy: 14 ([id number] (evaluation)) 2017 OT Evaluation Code Rationale: Diagnosis [...] and measurable assessment of functional outcome. Pager: [phone] Char Meza OT 08/03/2024 Occupational Therapy Rehabilitation [...] (Interventions Implemented as Appropriate) Flowsheets (Taken 08/01/2024 7855) Outcome Summary: A+O, no pain. NSR. MAP [...] Procedure Note: Patient Name: Korey Montoya : [id number] MR#: [id number] Case Date: 07/31/2024 Hog Handler: Surgeons and Role: * Maldonado Luis MD - Primary * Quinten Charles PA - Physician Accounts Payable Representative Preoperative diagnosis: shock, impella Postoperative diagnosis: * same * Procedure(s) performed: Impella removal form right SAP BUSINESS INTELLIGENCE CONSULTANT Access: Right SAP BUSINESS INTELLIGENCE CONSULTANT A time-out was conducted prior to [...] Admitted From: Transfer from another hospital Location: [facility] Reason for Hospitalization: chest pain [...] receiving care in [place] must abide by [place] law. The hierarchy [...] (i) The agent with financial power of employee benefits attorney or a conservator appointed in accordance [...] Home Address confirmed as: Mailing Address: [address] [address] Physical Address: [address] [place] [address] Social & Family Supports: All names listed [...] Coverage: Primary Insurance: AARP MANAGED MEDICARE [facility] / Plan: [facility] MANAGED MEDICARE COMPLETE / Product Type: *No Product type* / Secondary Insurance: N/A ; Prescription Coverage: Yes Preferred Pharmacy: [address] - [address] [address] [place] Status: Patient is a : No Primary Care Provider confirmed: Alexia Mtz, FIELD ARTILLERY OFFICER [phone] Patient/Caregiver Goals of Treatment: return home Potential [...] (Interventions Implemented as Appropriate) 07/30/2024528 by Chase Casrto RN Outcome: Ongoing (Interventions Implemented as Appropriate) * Plan of Care - Ary Malone RN - 07/29/2024 6:25 PM EST Pt arrived from [facility]ou[facility] @ 1400. CXR and EKG completed. Impella [...] Procedure Note: Patient Name: Korey Montoya : [id number] MR#: [id number] Case Date: 07/29/2024 Hog Handler: Surgeons and Role: * Vahe Marvin MD - Primary * Susannah Watts PA - Physician Accounts Payable Representative Preoperative diagnosis: STEMI Postoperative diagnosis: * STEMI, LAD Artery * * Cardiogenic Shock * Procedure(s) performed: [facility] Coronary angiogram Stent insertion coronary IVUS coronary Venous line insert [facility] [place] Colette Catheter Vascular closure device Ventricular assist [...] x 22 mm to 14 deonna JEISON [place] with LIZ 3 flow. Residual distal disease at distal stent, overlapping distal stent was inserted with 3.0 x 8 mm JEISON [place]. Systolic's in the 80's sustained. Patient re [...] 9:30 AM EST Appointment [place] [address] Mushtaq Murphy, FIELD ARTILLERY OFFICER 10/31/2024 11:00 AM EST Office Visit Cardiology at [address] [address] Mushtaq Murphy, FIELD ARTILLERY OFFICER Scheduled Orders Name Type Priority Associated [...] HEMATOLOGY ORDERABLE S [facility] [place] [address] * Magnesium (08/04/2024 6:08 AM EST) Pathologist [facility] Magnesium 0.85 0.69 - 1.07 mMol/L 08/04/2024 7:[address] [facility] Blood VENOUS BLOOD SPECIMEN / Unknown Venipuncture / Unknown 08/04/2024 6:08 AM EST 08/04/2024 6:19 AM EST Bridgette Stauffer MD CHEMISTRY ORDERABLES [facility] [place] [address] * Basic Metabolic Panel (08/04/2024 6:08 AM EST) Pathologist [facility] Glucose 93 65 - 199 mg/dL 08/04/2024 7:[address] [facility] Comment:Glucose Concentratio n >=200 mg/dL plus symptoms is consistent with Diabetes Mellitus. Blood Urea Nitrogen 14 10 - 20 mg/dL 08/04/2024 7:[address] [facility] Creatinine 1.07 0.80 - 1.50 mg/dL 08/04/2024 7:[address] [facility] Sodium 138 135 [...] MD CHEMISTRY ORDERABLES [facility] [place] [address] * (ABNORMAL) CBC (with Diff) (08/03/2024 5:16 [...] Address City/Va Hospital/ZIP Co de Phone Number [facility] [place] [address] * Magnesium (08/03/2024 5:16 AM EST) Magnesium 0.89 0.69 - 1.07 mMol/L 08/03/2024 5:[address] [facility] Blood VENOUS BLOOD SPECIMEN / Unknown Venipuncture / Unknown 08/03/2024 5:16 AM EST 08/03/2024 5:23 AM EST Bridgette Stauffer MD CHEMISTRY ORDERABLES [facility] [place] [address] * (ABNORMAL) Basic Metabolic Panel (08/03/2024 5:16 AM EST) Glucose 98 65 - 199 mg/dL 08/03/2024 5:[address] [facility] Comment:Glucose Concentratio n >=200 mg/dL plus symptoms is consistent with Diabetes Mellitus. Blood Urea Nitrogen 16 10 - 20 mg/dL 08/03/2024 5:[address] [facility] Creatinine 0.85 0.80 - 1.50 mg/dL 08/03/2024 5:56 AM EST [facility] Sodium 137 135 - [...] MD CHEMISTRY ORDERABLES [facility] [place] [address] * POC, GLUCOSE (08/02/2024 7:47 AM EST) Glucometer, POC 89 65 - 199 mg/dL 08/02/2024 7:[address] [facility] Comment:Supplemental ranges: <140 mg/dL before meals <180 mg/dL all other times of the day. Blood CAPILLARY BLOOD / Unknown 08/02/2024 7:47 AM EST 08/02/2024 7:47 AM EST Krystal Parker MD POINT OF CARE TEST O RDERABLES [facility] [place] [address] * (ABNORMAL) CBC (with Diff) (08/02/2024 4:20 AM EST) [facility] White Blood Cell 8.51 4.00 - 9.50 x10(3)/mc L 08/02/2024 4:[address] [facility] Red Blood Cell 4.41(L) 4.58 - 5.54 x10(6)/mc L 08/02/2024 4:[address] [facility] Hemoglobin 12.2(L) 13.7 - 16.5 g/dL 08/02/2024 4:[address] [facility] Hematocrit 35.8(L) 40.5 - 48.5 [...] Address City/Va Hospital/ZIP Co de Phone Number [facility] [place] [address] * Magnesium (08/02/2024 4:20 AM EST) Magnesium 0.79 0.69 - 1.07 mMol/L 08/02/2024 5:[address] [facility] Blood VENOUS BLOOD SPECIMEN / Unknown Venipuncture / Unknown 08/02/2024 4:20 AM EST 08/02/2024 4:37 AM EST Bridgette Stauffer MD CHEMISTRY ORDERABLES Performing Organization Address City/Va Hospital/[facility] Co de Phone Number [facility] [place] [address] * (ABNORMAL) Basic Metabolic Panel (08/02/2024 4:20 [...] - 107 mMol/L 08/02/2024 5:06 AM EST [facility] Carbon Dioxide 23 22 [...] Stauffer MD CHEMISTRY ORDERABLES Performing Organization Address City/State/[facility] Co de Phone Number [facility] [place] [address] * Potassium (08/01/2024 8:39 PM EST) Potassium 4.0 3.5 - 5.0 mMol/L 08/01/2024 9:21 PM EST [facility] Blood VENOUS BLOOD SPECIMEN / Unknown Venipuncture / Unknown 08/01/2024 8:39 PM EST 08/01/2024 8:51 PM EST Aubree Silverio MD CHEMISTRY ORDERABL ES Performing Organization Address [facility] Co de Phone Number [facility] [place] [address] * POC, GLUCOSE (08/01/2024 8:35 PM EST) Glucometer, POC 112 65 - 199 mg/dL 08/01/2024 8:36 PM EST [facility] Comment:Supplemental ranges: <140 mg/dL before meals <180 mg/dL all other times of the day. Blood CAPILLARY BLOOD / Unknown 08/01/2024 8:35 PM EST 08/01/2024 8:36 PM EST Krystal Parker MD POINT OF CARE TEST O RDKAY Performing Organization Address [facility] de Phone Number [facility] [place] [address] * POC, GLUCOSE (08/01/2024 4:55 PM EST) Glucometer, POC 99 65 - 199 mg/dL 08/01/2024 4:56 PM EST [facility] Comment:Supplemental ranges: <140 mg/dL before meals <180 mg/dL all other times of the day. Blood CAPILLARY BLOOD / Unknown 08/01/2024 4:55 PM EST 08/01/2024 4:56 PM EST Krystal Parker MD POINT OF CARE TEST O JOSH Performing Organization Address [facility] Co de Phone Number [facility] [place] [address] * POC, GLUCOSE (08/01/2024 12:42 PM EST) Glucometer, POC 130 65 - 199 mg/dL 08/01/2024 12:43 PM EST [facility] Comment:Supplemental ranges: <140 mg/dL before meals <180 mg/dL all other times of the day. Blood CAPILLARY BLOOD / Unknown 08/01/2024 12:42 PM EST 08/01/2024 12:43 PM EST Krystal Parker MD POINT OF CARE TEST O RDERASHAY Performing Organization Address City/Va Hospital/ZIP Co de Phone Number [facility] [place] [address] * (ABNORMAL) Cooximetry, POC (08/01/2024 10:45 AM [...] MD POINT OF CARE TEST O RDKAY [facility] [place] [address] * Potassium (08/01/2024 8:20 AM EST) Potassium 4.0 3.5 - 5.0 mMol/L 08/01/2024 10:17 AM EST [facility] Blood ARTERIAL BLOOD / Unknown Venipuncture / Unknown 08/01/2024 8:20 AM EST 08/01/2024 8:30 AM EST Aubree Silverio MD CHEMISTRY ORDERABL ES Performing Organization Address City/[facility] Hospital/ZIP Co de Phone Number [facility] [place] [address] * POC, GLUCOSE (08/01/2024 7:44 AM EST) [facility] Glucometer, POC 86 65 - 199 mg/dL 08/01/2024 7:[address] [facility] Comment:Supplemental ranges: <140 mg/dL before meals <180 mg/dL all other times of the day. Blood CAPILLARY BLOOD / Unknown 08/01/2024 7:44 AM EST 08/01/2024 7:44 AM EST Krystal Parker MD POINT OF CARE TEST O RDERABLES Performing Organization Address [facility] Co de Phone Number [facility] [place] [address] * (ABNORMAL) CBC (with Diff) (08/01/2024 4:18 AM EST) [facility] White Blood Cell 8.51 4.00 - 9.50 x10(3)/mc L 08/01/2024 4:[address] [facility] Red Blood Cell 4.12(L) 4.58 [...] % 0.2 % 08/01/2024 4:53 AM EST [facility] Baso Absolute <0.04 0.00 - 0.10 x10(3)/mc L 08/01/2024 4:53 AM EST [facility] Immature Gran % 0.4 % 4:[address] [facility] Immature Gran Absolute <0.04 0.00 - 0.04 x10(3)/mc L 08/01/2024 4:53 AM EST [facility] Blood VENOUS BLOOD SPECIMEN / Unknown Venipuncture / Unknown 08/01/2024 4:18 AM EST 08/01/2024 4:29 AM EST Bridgette Stauffer MD HEMATOLOGY ORDERABLE S [facility] [place] [address] * Magnesium (08/01/2024 4:18 AM EST) Magnesium 0.74 0.69 - 1.07 mMol/L 08/01/2024 5:[address] [facility] Blood VENOUS BLOOD SPECIMEN / Unknown Venipuncture / Unknown 08/01/2024 4:18 AM EST 08/01/2024 4:29 AM EST Bridgette Stauffer MD CHEMISTRY ORDERABLES [facility] [place] [address] * (ABNORMAL) Basic Metabolic Panel (08/01/2024 4:18 AM EST) Glucose 107 65 - 199 mg/dL 08/01/2024 5:[address] [facility] Comment:Glucose Concentratio n >=200 mg/dL plus symptoms is consistent with Diabetes Mellitus. Blood Urea Nitrogen 8(L) 10 - 20 mg/dL 08/01/2024 5:00 AM EST [facility] Creatinine 0.82 0.80 - 1.50 [...] MD CHEMISTRY ORDERABLES [facility] [place] [address] * POC, GLUCOSE (07/31/2024 8:41 PM EST) [...] TEST O RDERABLES [facility] [place] [address] * CARDIAC CATHETERIZATION (07/31/2024 5:53 PM EST) Anatomical Region Laterality Modality Other Narrative 08/01/2024 12:37 PM EST ?[facility] ? Cardiac Catheterization/Intervention Report ? Patient Name: Korey Montoya Kyrie. ? Procedure Date: 07/31/2024 ? A #: [id number] ? Primary Physician: Maldonado Luis ? Case #: [id number] ? File Name: [id number] ? Catheterization Order Number: [id number] ? [facility] ? Final Report [place], [place] ? Patient Name: ? Korey Mittal. Jan ?ID#: ?[id number] ? : ?1950 ? Procedure Date: ? [...] ? Comments: ?Impella removed from the right SAP BUSINESS INTELLIGENCE CONSULTANT with deployment of Perclose and ?Angioseal. [...] Procedure Note Maldonado Luis MD - 08/01/2024 [facility] Cardiac Catheterization/Intervention Report Patient Name: Korey Montoya Procedure Date: 07/31/2024 A #: [id number] Primary Physician: Maldonado Luis Case #: [id number] File Name: [id number] Catheterization Order Number: [id number] [facility] FinalReport [place], [place] Patient Name: Korey Montoya ID#:[id number] :1950 Procedure Date: July 31, 2024 Case [...] procedures. Comments: Impella removed from the right SAP BUSINESS INTELLIGENCE CONSULTANT with deployment of Perclose and Angioseal. [...] * POC, GLUCOSE (07/31/2024 11:04 AM EST) [facility] Glucometer, POC 82 65 - 199 mg/dL 07/31/2024 11:[address] [facility] Comment:Supplemental ranges: <140 mg/dL before meals <180 mg/dL all other times of the day. Blood CAPILLARY BLOOD / Unknown 07/31/2024 11:04 AM EST 07/31/2024 11:04 AM EST Krystal Parker MD POINT OF CARE TEST O RDERABLES [facility] [place] [address] * (ABNORMAL) Blood Gas, Arterial POC (07/31/2024 8:29 AM EST) pH, Arterial 7.48(H) 7.35 - 7.45 07/31/2024 8:[address] [facility] PCO2, Arterial 29(L) 35 - 45 mmHg 07/31/2024 8:[address] [facility] PO2, Arterial 71(L) 85 - 104 mmHg 07/31/2024 8:[address] [facility] Bicarbonate, Arterial 20.6 20.0 - 26.0 mmol/L 07/31/2024 8:[address] [facility] Base Excess, Arterial -3.0 -3.0 [...] TEST O RDERABLES [facility] [place] [address] * POC, GLUCOSE (07/31/2024 7:47 AM EST) Glucometer, POC 82 65 - 199 mg/dL 07/31/2024 7:[address] [facility] Comment:Supplemental ranges: <140 mg/dL before meals <180 mg/dL all other times of the day. Blood CAPILLARY BLOOD / Unknown 07/31/2024 7:47 AM EST 07/31/2024 7:53 AM EST Krystal Parker MD POINT OF CARE TEST O RDERABLES [facility] [place] [address] * (ABNORMAL) CBC (with Diff) (07/31/2024 1:08 [...] - 0.40 x10(3)/mc L 07/31/2024 1:[address] [facility] Basophil % 0.3 % 07/31/2024 1:[address] [facility] Baso Absolute <0.04 0.00 - 0.10 x10(3)/mc L 07/31/2024 1:[address] [facility] Immature Gran % 0.2 % 1:[address] [facility] Immature Gran Absolute <0.04 0.00 - 0.04 x10(3)/mc L 07/31/2024 1:[address] [facility] Blood VENOUS BLOOD SPECIMEN / Unknown Venipuncture / Unknown 07/31/2024 1:08 AM EST 07/31/2024 1:18 AM EST Bridgette Stauffer MD HEMATOLOGY ORDERABLE S [facility] [place] [address] * Magnesium (07/31/2024 1:08 AM EST) Pathologist [facility] Magnesium 0.89 0.69 - 1.07 mMol/L 07/31/2024 1:[address] [facility] Blood VENOUS BLOOD SPECIMEN / Unknown Venipuncture / Unknown 07/31/2024 1:08 AM EST 07/31/2024 1:18 AM EST Bridgette Stauffer MD CHEMISTRY ORDERABLES Performing Organization Address City/[facility] Hospital/ZIP Co de Phone Number [facility] [place] [address] * (ABNORMAL) Basic Metabolic Panel (07/31/2024 1:08 AM EST) [facility] Glucose 97 65 - 199 mg/dL 07/31/2024 1:[address] [facility] Comment:Glucose Concentratio n >=200 mg/dL plus symptoms is consistent with Diabetes Mellitus. Blood Urea Nitrogen 11 10 - 20 mg/dL 07/31/2024 1:[address] [facility] Creatinine 0.96 0.80 - 1.50 mg/dL 07/31/2024 1:[address] [facility] Sodium 140 135 - 145 mMol/L 07/31/2024 1:[address] [facility] Potassium 4.1 3.5 - 5.0 mMol/L 07/31/2024 1:[address] [facility] Chloride 110(H) 98 - 107 mMol/L 07/31/2024 1:[address] [facility] Carbon Dioxide 24 22 - 31 mMol/L 07/31/2024 1:[address] [facility] Anion Gap 6 5 - 15 mMol/L 07/31/2024 1:[address] [facility] Calcium 7.7(L) 8.5 - 10.5 mg/dL 07/31/2024 1:46 AM EST [facility] Est Glomerular Filtration Rate - Male 84 mL/min/1. 73 m?? 07/31/2024 1:46 AM EST [facility] Comment: [...] MD CHEMISTRY ORDERABLES [facility] [place] [address] * (ABNORMAL) Hepatic Function Panel (07/31/2024 1:08 AM EST) Albumin 3.1(L) 3.2 - 5.2 g/dL 07/31/2024 1:46 AM EST [facility] Aspartate Aminotransferase 192(H) <=39 unit/L 07/31/2024 1:46 AM EST [facility] Alanine Aminotransferase 59(H) 0 - 55 unit/L 07/31/2024 1:46 AM EST [facility] Alkaline Phosphatase 46 40 - 130 unit/L 07/31/2024 1:46 AM EST [facility] Bilirubin, Total 0.4 <=1.3 mg/dL 07/31/2024 1:46 AM EST [facility] Bilirubin, Direct <0.2 0.0 - 0.3 mg/dL 07/31/2024 1:46 AM EST [facility] Protein, Total 5.0(L) 6.1 - 8.0 g/dL 07/31/2024 1:46 AM EST [facility] Blood VENOUS BLOOD SPECIMEN / Unknown Venipuncture / Unknown 07/31/2024 1:08 AM EST 07/31/2024 1:18 AM EST Krystal Parker MD CHEMISTRY ORDERABLES Performing Organization Address City/Va Hospital/ZIP Co de Phone Number [facility] [place] [address] * POC, GLUCOSE (07/30/2024 8:03 PM EST) Glucometer, POC 86 65 - 199 mg/dL 07/30/2024 8:03 PM EST [facility] Comment:Supplemental ranges: <140 mg/dL before meals <180 mg/dL all other times of the day. Blood CAPILLARY BLOOD / Unknown 07/30/2024 8:03 PM EST 07/30/2024 8:03 PM EST Krystal Parker MD POINT OF CARE TEST O RDERABLES Performing Organization Address [facility] Co de Phone Number [facility] [place] [address] * Potassium (07/30/2024 8:03 PM EST) Potassium 3.8 3.5 - 5.0 mMol/L 07/30/2024 9:13 PM EST [facility] Blood VENOUS BLOOD SPECIMEN / Unknown Venipuncture / Unknown 07/30/2024 8:03 PM EST 07/30/2024 8:22 PM EST Aubree Silverio MD CHEMISTRY ORDERABL ES Performing Organization Address [facility] Co de Phone Number [facility] [place] [address] * POC, GLUCOSE (07/30/2024 6:23 PM EST) [...] Address City/[facility] Hospital/ZIP Co de Phone Number [facility] [place] [address] * POC, GLUCOSE (07/30/2024 5:08 PM EST) Glucometer, POC 78 65 - 199 mg/dL 07/30/2024 5:08 PM EST [facility] Comment:Supplemental ranges: <140 mg/dL before meals <180 mg/dL all other times of the day. Blood CAPILLARY BLOOD / Unknown 07/30/2024 5:08 PM EST 07/30/2024 5:08 PM EST Krystal Parker MD POINT OF CARE TEST O RDERABLES Performing Organization Address [facility]/ZIP Co de Phone Number [facility] [place] [address] * (ABNORMAL) Phosphorus (07/30/2024 3:08 PM EST) Phosphorus 2.1(L) 2.5 - 4.5 mg/dL 07/30/2024 3:58 PM EST [facility] Blood VENOUS BLOOD SPECIMEN / Unknown Venipuncture / Unknown 07/30/2024 3:08 PM EST 07/30/2024 3:12 PM EST Aubree Silverio MD CHEMISTRY ORDERABL ES Performing Organization Address City/[facility] Hospital/ZIP Co de Phone Number [facility] [place] [address] * Magnesium (07/30/2024 3:08 PM EST) Magnesium 0.90 0.69 - 1.07 mMol/L 07/30/2024 3:58 PM EST [facility] Blood VENOUS BLOOD SPECIMEN / Unknown Venipuncture / Unknown 07/30/2024 3:08 PM EST 07/30/2024 3:12 PM EST Aubree Silverio MD CHEMISTRY ORDERABL ES [facility] [place] [address] * (ABNORMAL) Basic Metabolic Panel (07/30/2024 3:08 PM EST) Pathologist [facility] Glucose 105 65 - 199 mg/dL [...] - 145 mMol/L 07/30/2024 4:17 PM EST [facility] Potassium 3.4(L) 3.5 - 5.0 mMol/L 07/30/2024 4:17 PM EST [facility] Chloride 109(H) 98 - [...] [facility] Co de Phone Number [facility] [place] [address] * ECHO LMTD W CONTRAST W LMTD SPEC DOPP COLOR DOPP (07/30/2024 11:42 AM EST) Anatomical Region Laterality Modality Cardiac Other 07/30/2024 10:2 2 AM EST Narrative 07/30/2024 12:34 PM EST [address] [place] [address] ? Echocardiogram Report Name: KOREY MONTOYA ? Study Date: 07/30/2024 10:22 AMBP: 124/66 mmHg : 1950 ? Height: 168 cm ? Account: [id number] Age: 74 yrs ? Weight: 65 kg Gender: Male ?BSA: 1.7 m2 Ordering Physician: Aubree Silverio MD Referring Physician: CHAPARRO FERRERA Performed By: OMERO Millan Reason For Study: ST elevation myocardial infarction involving left anterior descending (LAD) coronary artery Interpreting Fellow: Ivan Hernandez. Exam Location: [facility]. Interpretation Summary Left ventricle is severely dilated. [...] Compared to the overnight study by the insulation board calender operator fellow the impella position is stable. 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 Procedure Limited - 74811. Image enhancement Definity was used for both [...] Note Kathleen Banda MD - 07/30/2024 [address] [place] [id number] Echocardiogram Report Name: KOREY MONTOYA Kyrie Study Date: 410:22 AMBP: 124/66 mmHg : 1950 Height: 168 cm Account: [id number] Age: 74 yrs Weight: 65 kg Gender: Male BSA: 1.7 m2 Ordering Physician: Aubree Silverio MD Referring Physician: CHAPARRO FERRERA Performed By: OMERO Millan Reason For Study: ST elevation myocardial infarction involving leftanterior descending (LAD) coronary artery Interpreting Fellow: Ivan Hernandez. Exam Location: [facility]. Interpretation Summary Left ventricle is severely dilated. [...] Compared to the overnight study by the insulation board calender operator fellow the impella positionis stable. The global left ventricular systolic function has improvedpredominantly via recruitment outside the LAD territory which remains akinetic. Procedure Limited - 23631. Image enhancement Definity was used for both [...] 65 - 199 mg/dL 07/30/2024 11:[address] [facility] Comment:Supplemental ranges: <140 mg/dL before meals <180 mg/dL all other times of the day. Blood CAPILLARY BLOOD / Unknown 07/30/2024 11:17 AM EST 07/30/2024 11:17 AM EST Aubree Silverio MD POINT OF CARE TEST ORDERABLES [facility] [place] [address] * (ABNORMAL) Blood Gas, Arterial POC (07/30/2024 8:16 AM EST) Pathologist [facility] pH, Arterial 7.44 7.35 - 7.45 07/30/2024 8:[address] [facility] PCO2, Arterial 29(L) 35 - 45 mmHg 07/30/2024 8:[address] [facility] PO2, Arterial 109(H) 85 - 104 mmHg 07/30/2024 8:[address] [facility] Bicarbonate, Arterial 19.4(L) 20.0 - [...] CARE TEST ORDERABLES [facility] [place] [address] * (ABNORMAL) Troponin - Single (07/30/2024 8:09 AM EST) Troponin-T, High Sensitivity 8,651(H) <=22 ng/L 07/30/2024 9:[address] [facility] Comment: This patient's troponin T [...] troponin value can be found in the [facility] Test Catalog Troponin - [email or web address].org/catalogs/565/files/28356 Reference: Fourth [place] Definition of Myocardial Infarction. Journal of the [place] [employer] 2018;72:3770-4886 Blood VENOUS BLOOD SPECIMEN / Unknown Venipuncture / Unknown 07/30/2024 8:09 AM EST 07/30/2024 8:26 AM EST Aubree Silverio MD CHEMISTRY ORDERABL ES Performing Organization Address [facility] Co de Phone Number [facility] [place] [address] * POC, GLUCOSE (07/30/2024 7:40 AM EST) Pathologist [facility] Glucometer, POC 111 65 - 199 mg/dL 07/30/2024 7:40 AM EST [facility] Comment:Supplemental ranges: <140 mg/dL before meals <180 mg/dL all other times of the day. Blood CAPILLARY BLOOD / Unknown 07/30/2024 7:40 AM EST 07/30/2024 7:40 AM EST Aubree Silverio MD POINT OF CARE TEST ORDERABLES Performing Organization Address [facility] Co de Phone Number [facility] [place] [address] * (ABNORMAL) CBC (with Diff) (07/30/2024 2:11 [...] 6.10 x10(3)/mc L 07/30/2024 2:33 AM EST [facility] Lymph % 5.1 % 07/30/2024 2:[address] [facility] Lymph Absolute 0.57(L) 0.90 - 3.20 x10(3)/mc L 07/30/2024 2:33 AM EST [facility] Monocyte % 5.4 % 07/30/2024 2:33 AM EST [facility] Monocyte Absolute 0.61 0.30 - 0.90 x10(3)/mc L 07/30/2024 2:33 AM EST [facility] Eos % 0.0 % 07/30/2024 2:[address] [facility] Eos Absolute <0.04 0.00 - 0.40 x10(3)/mc L 07/30/2024 2:[address] [facility] Basophil % 0.2 % 07/30/2024 2:[address] [facility] Baso Absolute <0.04 0.00 - 0.10 x10(3)/mc L 07/30/2024 2:[address] [facility] Immature Gran % 0.4 % 2:[address] [facility] Immature Gran Absolute 0.05(H) 0.00 - 0.04 x10(3)/mc L 07/30/2024 2:[address] [facility] Blood VENOUS BLOOD SPECIMEN / Unknown Venipuncture / Unknown 07/30/2024 2:11 AM EST 07/30/2024 2:22 AM EST Bridgette Stauffer MD HEMATOLOGY ORDERABLE S [facility] [place] [address] * Magnesium (07/30/2024 2:11 AM EST) Magnesium 1.01 0.69 - 1.07 mMol/L 07/30/2024 2:[address] [facility] Blood VENOUS BLOOD SPECIMEN / Unknown Venipuncture / Unknown 07/30/2024 2:11 AM EST 07/30/2024 2:22 AM EST Bridgette Stauffer MD CHEMISTRY ORDERABLES [facility] [place] [address] * (ABNORMAL) Basic Metabolic Panel (07/30/2024 2:11 [...] 3.5 - 5.0 mMol/L 07/30/2024 2:[address] [facility] Chloride 105 98 - 107 mMol/L 07/30/2024 2:[address] [facility] Carbon Dioxide 19(L) 22 - 31 mMol/L 07/30/2024 2:[address] [facility] Anion Gap 11 5 - 15 mMol/L 07/30/2024 2:[address] [facility] Calcium 7.7(L) 8.5 - 10.5 mg/dL 07/30/2024 2:[address] [facility] Est Glomerular [...] Stauffer MD CHEMISTRY ORDERABLES Performing Organization Address City/State/[facility] [place] Phone Number [facility] [place] [address] * (ABNORMAL) Cooximetry, POC (07/30/2024 1:00 AM [...] CARE TEST ORDERABLES [facility] [place] [address] * (ABNORMAL) Blood Gas, Arterial POC (07/30/2024 [...] - 107 mmol/L 07/30/2024 12:58 AM EST [facility] Lactate, Arterial 1.3 0.5 - 2.2 mmol/L 07/30/2024 12:58 AM EST [facility] Flow Rate 2.0 L/min 07/30/2024 [...] [facility] Co de Phone Number [facility] [place] [address] * (ABNORMAL) Troponin - Single (07/29/2024 10:31 [...] troponin value can be found in the [facility] Test Catalog Troponin - https://one-.testcatalog.org/catalogs/565/files/99149 Reference: Fourth [place] Definition of Myocardial Infarction. Journal of the [place] College [employer] 2018;72:3448-6411 Blood VENOUS BLOOD SPECIMEN / Unknown Venipuncture / Unknown 07/29/2024 10:31 PM EST 07/29/2024 10:36 PM EST Yrn Velazquez MD CHEMISTRY ORDERABL ES Performing Organization Address [facility]/ZIP Co de Phone Number [facility] [place] [address] * Potassium (07/29/2024 8:11 PM EST) Potassium 4.1 3.5 - 5.0 mMol/L 07/29/2024 8:52 PM EST [facility] Blood VENOUS BLOOD SPECIMEN / Unknown Venipuncture / Unknown 07/29/2024 8:11 PM EST 07/29/2024 8:16 PM EST Aubree Silverio MD CHEMISTRY ORDERABL ES Performing Organization Address City/[facility]/ZIP Co de Phone Number [facility] [place] [address] * (ABNORMAL) Troponin - Single (07/29/2024 8:11 [...] troponin value can be found in the [facility] Test Catalog Troponin - https://one-.testcatalog.org/catalogs/565/files/57998 Reference: Fourth [place] Definition of Myocardial Infarction. Journal of the [place] College of [employer]iology 2018;72:5788-0550 Blood VENOUS BLOOD SPECIMEN / Unknown Venipuncture / Unknown 07/29/2024 8:11 PM EST 07/29/2024 8:16 PM EST Aubree Silverio MD CHEMISTRY ORDERABL ES Performing Organization Address City/[facility]/ZIP Co de Phone Number [facility] [place] [address] * (ABNORMAL) Phosphorus (07/29/2024 8:11 PM EST) Phosphorus 2.1(L) 2.5 - 4.5 mg/dL 07/29/2024 8:52 PM EST [facility] Blood VENOUS BLOOD SPECIMEN / Unknown Venipuncture / Unknown 07/29/2024 8:11 PM EST 07/29/2024 8:16 PM EST Aubree Silverio MD CHEMISTRY ORDERABL ES [facility] [place] [address] * POC, GLUCOSE (07/29/2024 8:09 PM EST) Glucometer, POC 142 65 - 199 mg/dL 07/29/2024 8:09 PM EST [facility] Comment:Supplemental ranges: <140 mg/dL before meals <180 mg/dL all other times of the day. Blood CAPILLARY BLOOD / Unknown 07/29/2024 8:09 PM EST 07/29/2024 8:09 PM EST Aubree Silverio MD POINT OF CARE TEST ORDERABLES Performing Organization Address City/[facility]/ZIP Co de Phone Number [facility] [place] [address] * ABORH RECHECK (07/29/2024 6:43 PM EST) Pathologist [facility] ABORH Recheck AB POSITIVE 07/29/2024 10:13 PM EST [facility] Blood VENOUS BLOOD SPECIMEN / Unknown Venipuncture / Unknown 07/29/2024 6:43 PM EST 07/29/2024 7:15 PM EST Aubree Silverio MD BLOOD BANK LAB ORD ERABLES Performing Organization Address City/[facility] Co de Phone Number [facility] [place] [address] * POC, GLUCOSE (07/29/2024 5:57 PM EST) [facility] Glucometer, POC 166 65 - 199 mg/dL 07/29/2024 5:57 PM EST [facility] Comment:Supplemental ranges: <140 mg/dL before meals <180 mg/dL all other times of the day. Blood CAPILLARY BLOOD / Unknown 07/29/2024 5:57 PM EST 07/29/2024 5:57 PM EST Aubree Silverio MD POINT OF CARE TEST ORDERABLES Performing Organization Address City/[facility]/ZIP Co de Phone Number [facility] [place] [address] * Type and screen ([facility]/MAGALIE) (07/29/2024 5:56 PM EST) Pathologist [facility] ABORH Type AB POSITIVE 07/29/2024 9:44 PM EST [facility] PATIENT HISTORY Not Found 07/29/2024 9:44 PM EST [facility] Expires at [id number] on: 08/01/2024 07/29/2024 9:44 PM EST [facility] ANTIBODY SCREEN AUTOMATED Negative 07/29/2024 9:44 PM EST [facility] T&S only valid at [facility] 07/29/2024 9:44 PM EST [facility] Blood VENOUS BLOOD SPECIMEN / Unknown Venipuncture / Unknown 07/29/2024 5:56 PM EST 07/29/2024 6:07 PM EST Narrative [facility] - 07/29/2024 9:44 PM EST This Type and Screen result is only valid at the [facility] Aubree Silverio MD BLOOD BANK LAB ORD ERABLES [facility] [place] [address] * (ABNORMAL) Troponin - Single (07/29/2024 4:52 PM EST) [facility] Troponin-T, High Sensitivity >10,000(H ) <=22 [...] troponin value can be found in the [facility] Test Catalog Troponin - https://[place]-.testcatalog.org/catalogs/565/files/06679 Reference: Fourth [place] Definition of Myocardial Infarction. Journal of the [place] College of Cardiology 2018;72:1150-9043 Blood VENOUS BLOOD SPECIMEN / Unknown Venipuncture / Unknown 07/29/2024 4:52 PM EST 07/29/2024 4:57 PM EST Aubree Silverio MD CHEMISTRY ORDERABL ES Performing Organization Address City/[facility]/ZIP Co de Phone Number [facility] [place] [address] * EKG 12 Lead (07/29/2024 4:21 PM EST) Ventricular rate 72 BPM MUSE SYSTEM Atrial Rate 72 BPM MUSE SYSTEM P-R Interval 168 ms MUSE SYSTEM QRS Duration 82 ms MUSE SYSTEM Q-T Interval 392 ms MUSE SYSTEM QTC Calculated (Bezet) 429 ms MUSE SYSTEM Calculated P [place] 71 degrees MUSE SYSTEM Calculated R [place] 77 degrees MUSE SYSTEM Calculated T [place] 28 degrees MUSE SYSTEM INTERPRETATION Sinus rhythm [...] Silverio MD ECG ORDERABLES Performing Organization Address City/[facility]/ZIP Co de Phone Number MUSE SYSTEM [...] - 1.33 mmol/L 07/29/2024 4:22 PM EST [facility] Glucose, Arterial 181 65 - 199 mg/dL 07/29/2024 4:22 PM EST [facility] Comment:Glucose Concentratio n >=200 mg/dL plus symptoms is consistent with Diabetes Mellitus. Blood ARTERIAL BLOOD / Unknown 07/29/2024 4:21 PM EST 07/29/2024 4:22 PM EST Aubree Silverio MD POINT OF CARE TEST ORDERABLES [facility] [place] [address] * POC, GLUCOSE (07/29/2024 4:19 PM EST) Glucometer, POC 185 65 - 199 mg/dL 07/29/2024 4:19 PM EST [facility] Comment:Supplemental ranges: <140 mg/dL before meals <180 mg/dL all other times of the day. Blood CAPILLARY BLOOD / Unknown 07/29/2024 4:19 PM EST 07/29/2024 4:19 PM EST Aubree Silverio MD POINT OF CARE TEST ORDERABLES Performing Organization Address [facility]/ZIP Co de Phone Number [facility] [place] [address] * Blood culture (07/29/2024 4:08 PM EST) Blood Culture No growth at 120 hours 08/03/2024 5:01 PM EST [facility] Blood VENOUS BLOOD SPECIMEN / Unknown Venipuncture / Unknown 07/29/2024 4:08 PM EST 07/29/2024 4:15 PM EST Aubree Silverio MD MICROBIOLOGY - BLO OD ORDERABLES Performing Organization Address City/[facility]/ZIP Co de Phone Number [facility] [place] [address] * Blood culture (07/29/2024 4:08 PM EST) Blood Culture No growth at 120 hours 08/03/2024 5:01 PM EST [facility] Blood VENOUS BLOOD SPECIMEN / Unknown Venipuncture / Unknown 07/29/2024 4:08 PM EST 07/29/2024 4:26 PM EST Aubree Silverio MD MICROBIOLOGY - BLO OD ORDERABLES [facility] [place] [address] * XR Chest One View (07/29/2024 2:30 PM EST) Pathologist [facility] WORKSTATION ID [id number] RAD Anatomical Region Laterality Modality Chest N/A [...] questions please contact the health child care centre manager that requested your imaging first. ? [...] have questions please contactthe health child care centre manager that requested your imaging first. Electronically signed by: Chris Candelaria MD, [facility]([phone]), at 07/29/2024 3:21 PM Vahe Marvin MD IMG DX ORDERABLES * (ABNORMAL) APTT (07/29/2024 2:03 PM EST) Partial Thromboplastin Time >160(HHH) 25 - 37 sec 07/29/2024 2:56 PM EST [facility] Blood VENOUS BLOOD SPECIMEN / Unknown Venipuncture / Unknown 07/29/2024 2:03 PM EST 07/29/2024 2:13 PM EST Vahe Marvin MD HEMATOLOGY ORDERABLE S [facility] [place] [address] * (ABNORMAL) Prothrombin Time (07/29/2024 2:03 PM [...] Address City/[facility]/ZIP Co de Phone Number [facility] [place] [address] * CRP, acute inflammation (07/29/2024 2:03 PM EST) [facility] C-Reactive Protein <3.0 <=4.9 mg/L 07/29/2024 2:52 PM EST [facility] Blood VENOUS BLOOD SPECIMEN / Unknown Venipuncture / Unknown 07/29/2024 2:03 PM EST 07/29/2024 2:14 PM EST Vahe Marvin MD CHEMISTRY ORDERABLES [facility] [place] [address] * Lipid Panel (Reflex Direct LDL) (07/29/2024 2:03 PM EST) Pathologist [facility] Cholesterol, Total 133 mg/dL 07/29/2024 2:52 [...] PM EST 07/29/2024 2:14 PM EST [facility] - 07/29/2024 2:52 PM [...] Address City/[facility]/ZIP Co de Phone Number [facility] [place] [address] * TSH Bracken (07/29/2024 2:03 PM EST) Thyroid Stimulating Hormone 0.70 0.27 - 4.20 mcIU/mL 07/29/2024 2:52 PM EST [facility] Blood VENOUS BLOOD SPECIMEN / Unknown Venipuncture / Unknown 07/29/2024 2:03 PM EST 07/29/2024 2:14 PM EST Vahe Marvin MD CHEMISTRY ORDERABLES Performing Organization Address City/[facility]/ZIP Co de Phone Number [facility] [place] [address] * Hemoglobin A1c (07/29/2024 2:03 PM EST) [facility] Hemoglobin A1c 5.3 4.3 - 5.6 [...] blood cell turnover may not be medical detail representative of glycemic control. Reference Interval: 4.3 [...] PM EST 07/29/2024 2:14 PM EST Narrative [facility] - 07/29/2024 2:41 PM EST Estimated average glucose (eAG) is calculated from the equation described in: Quinten DM, Rikki J, Reno R, et al. ??Translating the A1C assay into estimated average glucose values. ??Diabetes Care 2008:31(8):7162-8539. Additional resources are available on the ADA website (diabetes.org). Vahe Marvin MD CHEMISTRY ORDERABLES Performing Organization Address City/[facility]/ZIP Co de Phone Number [facility] [place] [address] * (ABNORMAL) CBC (with Diff) (07/29/2024 2:03 PM EST) [facility] White Blood Cell 19.50(H) 4.00 - 9.50 x10(3)/mc L 07/29/2024 2:[address] [facility] Red Blood Cell 4.81 4.58 [...] 6.10 x10(3)/mc L 07/29/2024 2:18 PM EST [facility] Lymph % 2.7 % 07/29/2024 2:18 PM EST [facility] Lymph Absolute 0.52(L) 0.90 - [...] Immature Gran % 0.5 % 2:[address] [facility] Immature Gran Absolute 0.09(H) 0.00 - 0.04 x10(3)/mc L 07/29/2024 2:[address] [facility] Blood VENOUS BLOOD SPECIMEN / Unknown Venipuncture / Unknown 07/29/2024 2:03 PM EST 07/29/2024 2:13 PM EST Vahe Marvin MD HEMATOLOGY ORDERABLE S [facility] [place] [address] * Phosphorus (07/29/2024 2:03 PM EST) Phosphorus 2.5 2.5 - 4.5 mg/dL 07/29/2024 2:[address] [facility] Blood VENOUS BLOOD SPECIMEN / Unknown Venipuncture / Unknown 07/29/2024 2:03 PM EST 07/29/2024 2:14 PM EST Vahe Marvin MD CHEMISTRY ORDERABLES Performing Organization Address [facility] Co de Phone Number [facility] [place] [address] * Magnesium (07/29/2024 2:03 PM EST) Magnesium 0.70 0.69 - 1.07 mMol/L 07/29/2024 2:52 PM EST [facility] Blood VENOUS BLOOD SPECIMEN / Unknown Venipuncture / Unknown 07/29/2024 2:03 PM EST 07/29/2024 2:14 PM EST Vahe Marvin MD CHEMISTRY ORDERABLES Performing Organization Address [facility] Co de Phone Number [facility] [place] [address] * (ABNORMAL) Comprehensive metabolic panel (07/29/2024 2:03 [...] 91 mL/min/1. 73 m?? 07/29/2024 3:[address] [facility] Comment: This [...] MD CHEMISTRY ORDERABLES [facility] [place] [address] * (ABNORMAL) Troponin - Single (07/29/2024 2:03 [...] troponin value can be found in the [facility] Test Catalog Troponin - https://[place]-.testcatalog.org/catalogs/565/files/64532 Reference: Fourth [place] Definition of Myocardial Infarction. Journal of the [place] College of Cardiology 2018;72:5333-4306 Blood VENOUS BLOOD SPECIMEN / Unknown Venipuncture / Unknown 07/29/2024 2:03 PM EST 07/29/2024 2:14 PM EST Vahe Marvin MD CHEMISTRY ORDERABLES [facility] [place] [address] * (ABNORMAL) Blood Gas, Venous POC (07/29/2024 [...] Venous 0.3 <=1.5 % 07/29/2024 2:[address] [facility] Sodium, Venous 137 135 - 145 mmol/L 07/29/2024 2:[address] [facility] Potassium, Venous 3.6 3.5 - 5.0 mmol/L 07/29/2024 2:[address] [facility] Chloride, Venous 103 98 - 107 mmol/L 07/29/2024 2:[address] [facility] Glucose, Venous 229(H) 65 - [...] CARE TEST O RDERABLES Performing Organization Address [facility]/State/[facility] Co de Phone Number [facility] [place] [address] * CARDIAC CATHETERIZATION (07/29/2024 1:20 PM EST) Anatomical Region Laterality Modality Other Narrative 07/29/2024 2:02 PM EST ?[facility] ? Cardiac Catheterization/Intervention Report ? Patient Name: Korey Montoya Kyrie. ? Procedure Date: 07/29/2024 ? A #: [id number] ? Primary Physician: Vahe Marvin ? Case #: [id number] ? File Name: [id number] ? Catheterization Order Number: [id number] ? [facility] ? Final Report [place], [place] ? Patient Name: ? Korey Mittal. Jan ?ID#: ?[id number] ? : ?1950 ? Procedure Date: ? [...] procedure was Emergent. The indication for ?the labourers visit is ACS less than or equal [...] 3.5 guiding catheter and a 3.5 Fr [place] [address] ??20 Mhz using ?Manual pullback. ??Imaging [...] ? A premounted 3.00 x 22 mm [place] (LOW) was deployed ? with a maximum [...] atmospheres. ??A premounted 3.00 x 08 mm [place] (LOW) ? was deployed with a maximum [...] dose administered prior to arrival in the labourers. ?Recommended anti-platelet/anti-thrombotic regimen: ?Start aspirin 81 mg daily now and continue for 12 months then stop. ?Start clopidogrel 75 mg daily now and continue for indefinitely. ?These recommendations are made at the time of the intervention. Patient ?and provider preferences or a changing clinical situation may require ?modification of this regimen. Consult [facility] for ?questions. ?The 1 year [...] able ?to start weaning his inotropes/vasopressors. A [place] Colette catheter was ?placed demonstrating improvement in his hemodynamics and the impella site ?was perclosed and hemostatic gauze was applied with excellent result. ?WIll transfer to the [facility] for further management. ?The attending [...] ventricular assist device insertion, right heart ?catheterization, [place] (flow directed cath) insertion, access site ?angiography, vascular ultrasound, venous line / sheath insert and vascular ?closure device. ? Vahe S Shavonne, M.D. ? Electronically Signed by: Vahe S Shavonne, M.D. ? Report Finalized: 07/29/2024 ??13:55 ? Report Last Ammended: 09/20/2024 ??15:21 ? Procedure Note Vahe Marvin MD - 09/20/2024 [facility] Cardiac Catheterization/Intervention Report Patient Name: Korey Montoya Procedure Date: 07/29/2024 A #: [id number] Primary Physician: Vahe Marvin Case #: [id number] File Name: [id number] Catheterization Order Number: [id number] [facility] FinalReport [place], [place] Patient Name: Korey Montoya ID#:[id number] :1950 Procedure Date: July 29, 2024 Case [...] diagnostic procedure was Emergent. Theindication for the labourers visit is ACS less than or equal [...] 3.5 guiding catheter and a 3.5 [address] [place] [address] 20 Mhzusing Manual pullback. Imaging was [...] The priority for the procedure was Emergent.The [facility] indication for the procedure [...] The lesion was predilated with a 2.00mm [id number] MM balloon with a maximum inflation pressure of 12atmospheres. A premounted 3.00 x 22 mm [place] (LOW) wasdeployed with a maximum inflation pressure [...] atmospheres. A premounted 3.00 x 08 mm [place](LOW) was deployed with a maximum inflation pressure [...] dose administered prior to arrival in the labourers. Recommended anti-platelet/anti-thrombotic regimen: Start aspirin 81 mg daily now and continue for 12 months then stop. Start clopidogrel 75 mg daily now and continue for indefinitely. These recommendations are made at the time of the intervention.Patient and provider preferences or a changing clinical situation mayrequire modification of this regimen. Consult [facility] Inter[facility] Cardiologyfor questions. The 1 year bleeding [...] wereable to start weaning his inotropes/vasopressors. A [place] Colette catheterwas placed demonstrating improvement in his [...] ventricular assist device insertion, right heart catheterization, [place] (flow directed cath) insertion, access site angiography, vascular ultrasound, venous line / sheath insert andvascular closure device. Vahe Marvin M.D. Electronically Signed by: Vahe Marvin M.D. Report Finalized: 07/29/2024 13:55 Report Last Ammended: 09/20/2024 15:21 Vahe Marvin MD CARDIAC CATH ORDERAB LES * (ABNORMAL) BLOOD GAS, POC (07/29/2024 12:46 PM EST) Sodium, POC 139 135 - 145 mmol/L 07/30/2024 7:30 AM EST [facility] Potassium, POC 3.4(L) 3.5 - 5.0 mmol/L 07/30/2024 7:30 AM EST [facility] pH, POC 7.33(L) 7.35 - 7.45 07/30/2024 7:30 AM EST [facility] Ionized Calcium, POC 1.13(L) [...] TEST O RDERABLES [facility] [place] [address] * (ABNORMAL) BLOOD GAS, POC (07/29/2024 12:12 [...] TEST O RDERABLES [facility] [place] [address] documented in this encounter Visit Diagnoses Not [...] Routine documented in this encounter Care Teams Senior Controls Technician Relationship Specialty Start Date End Date Yoel Artis APRN [address] [place] [address] PCP - General Internal Medicine 11/18/22 07/29/24 documented as of this encounter
--- OUTSIDE RECORDS SUMMARY | 2024-10-08 11:22 | XMS_ITS | Encounter Summary ---
Author Organization [facility] [place] [address] Care Team Providers Care Ux Design Manager Name Role Phone Yoel Artis Ute ALCALA Primary Care Provider [phone] Reason for Visit * Auth/Cert (Routine) Specialty Diagnoses / Procedures Referred By Theodore t Referred To Contact Diagnoses Anal spasm Fecal smearing Constipation, unspecified Rectal pain, fecal smearing Procedures PRO COLONOSCOPY, DIAGNOSTIC PRO COLONOSCOPY, BIOPSY PRO COLONOSCOPY, REMV LESN, SNARE COLONOSCOPY, DIAGNOSTIC (WRVU 3.26) Brandan Mcgovern MD [facility] [place] [address] [facility] Referral ID Status Reason Start Date Expiration Date Visits Re quested Visits Authorized [id number] 1 1 Encounter Details Date Type Department Care Team (Latest Contact Info) Description 08/30/2023 10:09 AM EST - 08/30/2023 12:19 PM [facility] Hospital [place] [address] Brandan Mcgovern MD [facility] [place] [address] Discharge Disposition: Home Social History Tobacco Use [...] occurs, please contact your Doctor. Please call [phone] before 8pm Mon-Fri with problems, questions or concerns. If you call after 8pm or on weekends, call the Hospital at [phone] and ask to speak to the Grain Weigher credit collection associate and the hardboard coating machine operator will contact that person for you. When should you call for help? Call [phone] anytime you think you may need emergency [...] problems. Where can you learn more? [facility] View your After Visit Summary and more online at [email or web address] If you would like to provide feedback about your hospital experience, please call the Office of Patient and Family Relations at . If you have received this After Visit Summary in error, please immediately return it in person to the department, or notify the [facility] Privacy Office by calling toll free at between the hours of 8AM and 5PM to arrange for our retrieval of the documents at no cost to you. Content Version: 12.2 ?? [id number] [employer]. Care instructions adapted under license by [facility]. If you have questions about a medical condition or this instruction, always ask your healthcare professional. [employer] disclaims any warranty or liability for your [...] evening. 04/17/2023 08/04/2024 nitroGLYcerin (NITROLINGUAL) 400 mcg/spray Brandon, Non-AerosolIndications:P roctalgia fugax,Fecal smearing,Constipation, unspecified constipation type 1 spray to anus for proctalgia fugax as needed, not to exceed once daily 12 g 06/01/2023 08/04/2024 documented as of this encounter H&P Notes * Brandan Mcgovern MD - 08/30/2023 10:44 AM EST Patient Name: Korey Montoya Patient Age: 73 y.o. Birthdate: 1950 Admit date: 08/30/2023 Attending Physician: Branadn Mcgovern MD Gastroenterology and Hepatology Pre-Procedure History [...] 9:30 AM EST Appointment Non-[place] [phone] Mushtaq Murphy APRN 10/31/2024 11:00 AM EST Office Visit Cardiology at [address] [address] Mushtaq Murphy APRN documented as of this encounter Procedures Procedure Name Priority Date/Time Associated Diagnosis Comments SPECIMEN TO PATHOLOGY Routine 08/30/2023 11:23 AM EST SURGICAL PATHOLOGY REPORT Routine 08/30/2023 11:21 AM EST COLONOSCOPY Routine 08/30/2023 10:57 AM EST Colonoscopy, Antonieta Valadez ([id number]) 08/30/2023 10:44 AM EST Proctalgia fugax Fecal smearing Constipation, unspecified constipation type documented in this encounter Results * Specimen to Pathology (08/30/2023 11:23 AM EST) AP Specimen 08/30/2023 11:2 3 AM EST 08/30/2023 11:23 AM EST Narrative [facility] - 08/30/2023 11:23 AM EST Specimen requisition ordered. ??Separate Pathology report to follow Brandan Mcgovern MD PATHOLOGY/CYTOLOGY O RDERASHAY [facility] [place] [address] * Surgical Pathology Report (08/30/2023 11:21 AM EST) Final Diagnosis [id number] ? Location: 4T; EA12; A The signing pathologist has (i) examined the relevant preparation(s) for the specimen(s) and (ii) rendered or confirmed the diagnosis(es). . ?Surgical Pathology DIAGNOSIS A - Sigmoid colon polyp, resection (Multiple): - ??Tubular adenoma. CR-PX Electronically signed by: ?Blake ORTEGA PhD, Yulia Verified: ??09/08/2023 14:48 ??Pathologist Performed at: ??-[facility] Dept. of Pathology, [place] [address] Life Manager: Fercho Chan MD, FCAP, ??CLIA Certificate: [id number] SPECIMEN(S) SUBMITTED A - Sigmoid colon polyp, [...] EST Brandan Mcgovern MD PATHOLOGY/CYTOLOGY Veronica RDCLAIREBLES [facility] [place] [address] [facility] [place] [address] * COLONOSCOPY (08/30/2023 10:57 AM EST) COLONOSCOPY [facility] Endoscopy Procedure Date: 08/30/2023 10:57 AM ? Patient Name: Korey Montoya ? N: [id number] ? Date of : 1950 ? Age: 73 ? Order #: [id number] ? Instrument Name: [id number] ? Procedure: ? Colonoscopy Indications: ? Rectal [...] preparation was evaluated ? using the BBPS ([place] Bowel ? Preparation Scale) with scores of: [...] RN) documented in this encounter Care Teams Ux Design Manager Relationship Specialty Start Date End Date Yoel Artis APRN [address] [place] [address] PCP - General Internal Medicine 11/18/22 07/29/24 documented as of this encounter
--- OUTSIDE RECORDS SUMMARY | 2024-10-08 11:22 | XMS_ITS | Encounter Summary ---
Author Organization [facility] [place] [address] Care Team Providers Care Destination Sign Repairer Name Role Phone Yoel Artis APRN Primary Care Provider Reason for Referral * Consultation (Routine) - Closed Specialty Diagnoses / Procedures Referred By Theodore muro Referred To Contact Gastroenterology Diagnoses Proctalgia fugax Fecal smearing Constipation, unspecified constipation type group Yoel Dangelo APRN [facility] [place] [address] Paulette Glynn, PhD [facility] [place] [address] Referral ID Status Reason Start Date Expiration Date V isits Requested Visits Authorized [id number] Closed Consult, Test & Treat 06/01/2023 05/31/2024 1 1 Reason for Visit * Consultation (Routine) - Closed Specialty Diagnoses / Procedures Referred By Theodore umro Referred To Contact Gastroenterology Diagnoses Anal spasm motility- anal spasms Yoel Artis APRN [address] [place] [address] [facility] [place] [address] [address] Referral ID Status Reason Start Date Expiration Date V isits Requested Visits Authorized [id number] Closed Consult, Test & Treat PCP Updated and/or Approved 11/18/2022 11/18/2023 6 6 Encounter Details Date Type Department Care Team (Latest Contact Info) Description 06/01/2023 8:00 AM EDT TH Visit (TeleHealth) [place] [address] Yoel Dangelo, SEO ENGINEER [facility] [place] [address] Proctalgia fugax; Fecal smearing; Constipation, unspecified constipation [...] encounter Patient Instructions * Patient Instructions* Yoel Dnagelo, FREDRICK - 06/01/2023 8:00 AM EDT Dear Korey, It was nice to meet you today. I have listed the recommendations we discussed below. Please call the GI department to schedule the investigations if you do not hear from us within 1 week: Clinic [phone] Motility Lab scheduling [phone] Endoscopy scheduling- [phone] Diagnostics: -Colonoscopy for rectal pain -Anorectal manometry [...] and our services, please visit the [facility] GI Behavioral health website at: [email or web address] Our hope is that through these classes, [...] on 06/03, 06/10, 06/24 & 07/01 (Leaders: eRnard & Kelby) Gut-directed Hypnotherapy Goal: decrease symptoms [...] please contact your insurance company or the [facility] billing office ([email or web address]). Your insurance company may request a CPT code if you ask about coverage. [place] [address]. If you're interested in attending any of these classes or workshops, please reach out to our scheduling team via [facility] or phone ([phone]). You should start a fiber supplement if [...] Handout for Patients and Primary Care Providers [facility] Gastrointestinal Motility, Esophageal, and Swallowing Disorders [facility] What are functional bowel disorders? These are the most common type of gastrointestinal disorders in the [facility] The most common functional bowel disorder in the [facility] is irritable bowel syndrome (IBS) [...] what is the impact? 15-20% of general [place] population has IBS or FD or both 2nd most common cause for lost work days (after common cold) in [place] Estimated $30 billion dollar cost to [place] economy per year These disorders can have [...] with immediate onset of symptoms after infection); assisted symptoms are expected in most patients however [...] to you primary care provider and/or local salvager helper and share this document. Treatment of [...] - this approach benefits most patients OTC (xfxt-jwc-wzpawem) medications can be used for ongoing bothersome [...] All-Bran psyllium buds, Metamucil, Konsyl, bulk psyllium ([employer] and [employer] stores) Specifically we recommend starting Metamucil or [...] but convincing medical evidence is still lacking Dokl-ecl-wyxafjm supplements including probiotics are not typically evaluated [...] to decrease antibiotic-associated diarrhea and antibiotic-related infections Yirr-rbn-Uiynjgr Medications for Functional Gut Disorders Based on [...] a stool softener that is safe for assisted usage (no risk of dependency) andthe dosage [...] (GERD) Often a combination of anti-nausea medications (zdnt-nsq-qmobkmu or prescription) works better thanhigh doses of [...] for misuse/misinterpretation of this information Patient Resources [place] Gastro[employer]ological Association https://www.gastro.org/practice-guidance/jq-fgjsfqh-ufvbfg/ topic/fmdkxtfhb-yehbq-mogmkpru-ibs Badgut.org https://badgut.org/information-centre/l-n-tbhmqsdqv-topics/ibs/ AboutIBS.org https://www.aboutibs.org/ Uptodate.com https://www.uptodate.com/contents/lukmwhdyy-ngrlj-avnmdxhv-qqqnqm-ocj-peikps documented in this encounter Progress Notes * [...] Denies weight loss [facility]. Current Regimen: Metamucil daily [...] recommendations above. The patient was located in [place] at the time of their visit. TIME SPENT WITH PATIENT Time spent reviewing records prior to this encounter on day of appointment: 2 minutes Time spent during encounter with patient including counselin minutes Time spent documenting encounter after office visit: 7 minutes Yoel Dangelo APRN [facility] [place] [address] documented in this encounter Plan of Treatment Upcoming Encounters Date Type Department Care Team (Late st Contact Info) Description 10/31/2024 9:30 AM EST Appointment [place] [address] Mushtaq Murphy APRN 10/31/2024 11:00 AM EST Office Visit Cardiology at [address] [address] Mushtaq Murphy APRN Scheduled Orders Name Type [...] type documented in this encounter Care Teams Destination Sign Repairer Relationship Specialty Start Date End Date Yoel Artis APRN [address] [place] [address] PCP - General Internal Medicine 11/18/22 07/29/24 documented as of this encounter
--- OUTSIDE RECORDS SUMMARY | 2024-10-08 11:22 | XMS_ITS | Encounter Summary ---
[place] [address] Care Team Providers Care Pharmaceutical Engineer Name Role Phone Unknown Primary Care Provider Unavailabl e Encounter Details Date Type Department Care Team (Late st Contact Info) Description 12/03/2018 Interpretation Only [address] [phone] Ac Albrecht PA [address] [place] [address] [place] [address] Social History Tobacco Use Types Packs/Day Years [...] AM EST Appointment Non-Invasive [place] [address] Mushtaq Murphy APRN 10/31/2024 11:00 AM EST Office Visit Cardiology at [address] [address] Mushtaq Murphy APRN documented as [...] below. ? Electronically signed by: Darvin Noyola [facility] ([phone]), at 12/03/2018 1:33 PM Narrative 12/03/2018 1:38 [...] number below. Electronically signed by: Darvin Noyola [facility]([phone]), at 12/03/2018 1:33 PM Ac SERRANO IMG DX ORDERABLES documented in this encounter Visit Diagnoses Not on filedocumented in this encounter Care Teams Pharmaceutical Engineer Relationship Specialty Start Date End Date Unknown None PCP - General 08/04/10 01/16/19 documented as of this encounter
--- OUTSIDE RECORDS SUMMARY | 2024-10-08 11:22 | XMS_ITS | Encounter Summary ---
[place] [address] Care Team Providers Care Pile Driver Engineer Name Role Phone Yoel Artis FREDRICK Primary Care Provider [phone] Encounter Details Date Type Department Care Team (Late st Contact Info) Description 08/26/2023 [place] [address] Madelyn Vasquez Social History Tobacco Use Types [...] - 08/26/2023 9:23 AM EST Korey Montoya [id number] Diagnosis/Indication: Rectal pain, fecal smearing Please review [...] ever had a/an Colonoscopy before? Yes: Date ooafoj0zuh ago [facility] If yes, [...] procedure? No You must have a responsible green party who will drive you to your procedure, stay on campus for the entire duration of your procedure, and drive you home from your procedure. Who will likely be your canal driver for the procedure? Please Verify the [...] 9:30 AM EST Appointment Non-[place] [address] Mushtaq Murphy APRN 10/31/2024 11:00 AM EST Office Visit Cardiology at [address] [phone] Mushtaq Murphy, FREDRICK documented as of this encounter Visit Diagnoses Not on filedocumented in this encounter Care Teams Pile Driver Engineer Relationship Specialty Start Date End Date Yoel Artis APRN [address] [place] [address] PCP - General Internal Medicine 11/18/22 07/29/24 documented as of this encounter
--- OUTSIDE RECORDS SUMMARY | 2024-10-08 11:22 | XMS_ITS | Encounter Summary ---
[place] [address] Care Team Providers Care Financial Planning Consultant Name Role Phone Anibal Mtz MD Primary Care Provider [phone] Encounter Details Date Type Department Care Team (Late st Contact Info) Description 01/18/2019 3:00 PM EDT Interpretation Only Cardiology at [address] [phone] Alberto Powell Jr., MD Dizziness Social History [...] 9:30 AM EST Appointment Non-[place]vasive [place] [address] Mushtaq Murphy APRN 10/31/2024 11:00 AM EST Office Visit Cardiology at [address] [address] Mushtaq Murphy, FREDRICK documented as [...] giddiness documented in this encounter Care Teams Financial Planning Consultant Relationship Specialty Start Date End Date Anibal Mtz MD [address] [place] [address] PCP - General Family Medicine 01/17/19 11/17/22 documented as of this encounter
--- OUTSIDE RECORDS SUMMARY | 2024-10-08 11:22 | XMS_ITS | Encounter Summary ---
Author Organization [facility] [place] [address] Care Team Providers Care Load Dispatcher Name Role Phone Unknown Primary Care Provider Unavailabl e Encounter Details Date Type Department Care Team (Late st Contact Info) Description 01/13/2019 9:05 PM EDT Ancillary Procedure Radiology Library at [facility] [place] [phone] Sunny Aviles MD [facility] [place] [address] Social History Tobacco Use Types Packs/Day Years [...] 9:30 AM EST Appointment Non[place] [address] Mushtaq Murphy APRN 10/31/2024 11:00 AM EST Office Visit Cardiology at [address] [address] Mushtaq Murphy, FREDRICK documented as [...] IMG FILM LIBRARY ORDERABLES Performing Organization Address City/State/[facility] Co de Phone Number [place], [place] documented in this encounter Visit Diagnoses Not on filedocumented in this encounter Care Teams Load Dispatcher Relationship Specialty Start Date End Date Unknown None PCP - General 08/04/10 01/16/19 documented as of this encounter
--- OUTSIDE RECORDS SUMMARY | 2024-10-08 11:22 | XMS_ITS | Encounter Summary ---
[place] [address] Care Team Providers Care Base Remover Name Role Phone Yoel Artis APRN Primary Care Provider [phone] Reason for Referral * Consultation (Routine) - Closed Specialty Diagnoses / Procedures Referred By Theodore muro Referred To Contact Gastroenterology Diagnoses Anal spasm motility- anal spasms Yoel Artis APRN [address] [place] [address] [facility] Gastro 4[place] [address] Referral ID Status Reason Start Date Expiration Date V isits Requested Visits Authorized [id number] Closed Consult, Test & Treat PCP Updated and/or Approved 11/18/2022 11/18/2023 6 6 Encounter Details Date Type Department Care Team (Late st Contact Info) Description 11/18/2022 Transcribe Orders eDH Incoming Referrals [phone] Yoel Artis APRN [address] [place] [address] Anal spasm Social History Tobacco [...] 9:30 AM EST Appointment Non-[place] [address] Mushtaq Murphy, FREDRICK 10/31/2024 11:00 AM EST Office Visit Cardiology at [address] [address] Mushtaq Murphy, SITE OPERATIONS MANAGER Scheduled Referrals Name Type Priority Associated Diagnoses Order Schedule Referral to Gastroenterology Outpatient Referral Routine Anal spasm Ordered: 11/18/2022 documented as of this encounter Visit Diagnoses Diagnosis Anal spasm documented in this encounter Care Teams Base Remover Relationship Specialty Start Date End Date Yoel Artis APRN [address] [place] [address] PCP - General Internal Medicine 11/18/22 07/29/24 documented as of this encounter
--- OUTSIDE RECORDS SUMMARY | 2024-10-08 11:22 | XMS_ITS | Encounter Summary ---
[place] [address] Care Team Providers Care Silicator Name Role Phone Yoel Artis APRN Primary Care Provider [phone] Reason for Referral * Consultation (Routine) - Closed Specialty Diagnoses / Procedures Referred By Theodore muro Referred To Contact Urology Diagnoses Raised prostate specific antigen PERSISTENTLY MILDLY ELEVATED PSA, URINARY FREQ Yoel Artis APRN [address] [place] [address] [facility] [place] [address] Referral ID Status Reason Start Date Expiration Date V isits Requested Visits Authorized [id number] Closed Consult, Test & Treat PCP Updated and/or Approved 07/30/2023 07/29/2024 6 6 Encounter Details Date Type Department Care Team (Late st Contact Info) Description 07/30/2023 Transcribe Orders eDH Incoming Referrals [phone] Yoel Artis APRN [address] [place] [address] Raised prostate specific antigen Social History Tobacco [...] 9:30 AM EST Appointment [place] [address] Mushtaq Murphy APRN 10/31/2024 11:00 AM EST Office Visit Cardiology at [address] [phone] Mushtaq Murphy, FREDRICK Scheduled Referrals Name Type Priority Associated Diagnoses Orde r Schedule Referral to Urology Outpatient Referral Routine Raised prostate specific antigen Ordered: 07/30/2023 documented as of this encounter Visit Diagnoses Diagnosis Raised prostate specific antigen Elevated prostate specific antigen (PSA) documented in this encounter Care Teams Silicator Relationship Specialty Start Date End Date Yoel Artis APRN [address] [place] [address] PCP - General Internal Medicine 11/18/22 07/29/24 documented as of this encounter
--- OUTSIDE RECORDS SUMMARY | 2024-10-08 11:22 | XMS_ITS | Encounter Summary ---
[place] [address] Care Team Providers Care Conveyor System Operator Name Role Phone Yoel Artis APRN Primary Care Provider Encounter Details Date Type Department Care Team (Late st Contact Info) Description 12/23/2022 8:20 AM EDT - 12/23/2022 11:59 PM EDT Hospital Encounter [facility] Lab [address] [place] [address] Yoel Artis, CLIENT ACCOUNT SPECIALIST [address] [place] [address] Discharge Disposition: Home Social History Tobacco Use [...] 9:30 AM EST Appointment Non-Invasive [place] [address] Mushtaq Murphy, FREDRICK 10/31/2024 11:00 AM EST Office Visit Cardiology at [address] [address] Mushtaq Murphy APRN documented as of this encounter Procedures Procedure Name Priority Date/Time Associated Diagnosis Comments PSA SCREEN Routine 12/23/2022 8:43 AM EDT documented in this encounter Results * (ABNORMAL) PSA Screen (12/23/2022 8:43 AM EDT) PSA Screen 4.37(H) 0.00 - 4.00 ng/mL [facility] Comment: PLEASE NOTE: The above [...] Artis APRN CHEMISTRY ORDERABLES Performing Organization Address City/State/[facility] Co de Phone Number [facility] [place] [address] documented in this encounter Visit Diagnoses Not on filedocumented in this encounter Care Teams Conveyor System Operator Relationship Specialty Start Date End Date Yoel Artis APRN [address] [place] [address] PCP - General Internal Medicine 11/18/22 07/29/24 documented as of this encounter
--- OUTSIDE RECORDS SUMMARY | 2024-10-08 11:22 | XMS_ITS | Encounter Summary ---
[place] [address] Care Team Providers Care Protohistorian Name Role Phone Yoel Artis APRN Primary Care Provider [phone] Encounter Details Date Type Department Care Team (Late st Contact Info) Description 03/01/2023 9:30 AM EDT - 03/01/2023 11:59 PM EDT Hospital Encounter [facility] Lab [address] [place] [address] Yoel Artis, SOLAR MANAGER [address] [place] [address] Discharge Disposition: Home Social History Tobacco Use [...] 9:30 AM EST Appointment Non-[place] [address] Mushtaq Murphy, FREDRICK 10/31/2024 11:00 AM EST Office Visit Cardiology at [address] [address] Mushtaq Murphy APRN documented as of this encounter Procedures Procedure Name Priority Date/Time Associated Diagnosis Comments PSA (ULTRASENSITIVE) Routine 03/01/2023 9:38 AM EDT documented in this encounter Results * (ABNORMAL) PSA (Ultrasensitive) (03/01/2023 9:38 AM EDT) Prostate Specific Antigen (Ultrasensitive) 5.09(H) 0.00 - 4.00 ng/mL [facility] Comment: PLEASE NOTE: The above [...] In Lab Yoel Artis APRN CHEMISTRY ORDERABLES [facility] [place] [address] documented in this encounter Visit Diagnoses Not on filedocumented in this encounter Care Teams Protohistorian Relationship Specialty Start Date End Date Yoel Artis APRN [address] [place] [address] PCP - General Internal Medicine 11/18/22 07/29/24 documented as of this encounter
--- OUTSIDE RECORDS SUMMARY | 2024-10-08 11:22 | XMS_ITS | Encounter Summary ---
[place] [address] Care Team Providers Care Risk Tech Name Role Phone Yoel Artis APRN Primary Care Provider [phone] Reason for Referral * Consultation (Routine) - Closed Specialty Diagnoses / Procedures Referred By Theodore muro Referred To Contact Gastroenterology Diagnoses Anal spasm anal spasm Yoel Artis APRN [address] [place] [address] [facility] [place] [place] [address] Referral ID Status Reason Start Date Expiration Date V isits Requested Visits Authorized [id number] Closed Consult, Test & Treat PCP Updated and/or Approved 05/26/2023 05/25/2024 6 6 Encounter Details Date Type Department Care Team (Late st Contact Info) Description 05/26/2023 Transcribe Orders eDH Incoming Referrals [phone] Yoel Artis APRN [address] [place] [address] Anal spasm Social History Tobacco [...] 9:30 AM EST Appointment Non-[place]vasive [place] [address] Mushtaq Murphy APRN 10/31/2024 11:00 AM EST Office Visit Cardiology at [address] [address] Mushtaq Murphy, RN MEDICARE Scheduled Referrals Name Type Priority Associated Diagnoses Order Schedule Referral to Gastroenterology Outpatient Referral Routine Anal spasm Ordered: 05/26/2023 documented as of this encounter Visit Diagnoses Diagnosis Anal spasm documented in this encounter Care Teams Risk Tech Relationship Specialty Start Date End Date Yoel Artis APRN [address] [place] [address] PCP - General Internal Medicine 11/18/22 07/29/24 documented as of this encounter
--- OUTSIDE RECORDS SUMMARY | 2024-10-08 11:22 | XMS_ITS | Encounter Summary ---
[place] [address] Care Team Providers Care Bracelet Maker Novelty Name Role Phone Anibal Mtz MD Primary Care Provider [phone] Encounter Details Date Type Department Care Team (Late st Contact Info) Description 11/08/2022 [facility] Only [address] [address] Eve Frost MD [address] [place] [id number] Social History Tobacco Use Types Packs/Day Years [...] 9:30 AM EST Appointment [place] [address] Mushtaq Murphy APRN 10/31/2024 11:00 AM EST Office Visit Cardiology at [address] [address] Mushtaq Murphy, BOX BLANK MACHINE FEEDER documented as of this encounter Procedures Procedure Name Priority Date/Time Associated Diagnosis Comments XR CHEST PA AND LATERAL STAT 11/08/2022 10:34 AM EST documented in this encounter Results * XR Chest PA & Lateral (Generic) (11/08/2022 10:34 AM EST) PT CLASS E DH RAD ADMITDTTM RAD PT RAD INFO [id number]^C HANDER^SUNEE R RAD EXAM DESC XCXR2^XR CHEST [...] who have questions please contact the health intensive care anaesthetist that requested your imaging first. ? Narrative [...] patients who have questions please contactthe health intensive care anaesthetist that requested your imaging first. Eve Frost MD IMG DX ORDERABLES documented in this encounter Visit Diagnoses Not on filedocumented in this encounter Care Teams Bracelet Maker Novelty Relationship Specialty Start Date End Date Anibal Mtz MD [address] [place] [address] PCP - General Family Medicine 01/17/19 11/17/22 documented as of this encounter
--- OUTSIDE RECORDS SUMMARY | 2024-10-10 10:14 | XMS_ITS | Encounter Summary ---
Author Organization [facility] [place] [address] Care Team Providers Care Floral Clerk Name Role Phone JewellAlexia shell FREDRICK Primary Care Provider [phone] Encounter Details Date Type Department Care Team (Late st Contact Info) Description 10/01/2024 Telephone Cardiology at [address] [phone] Chloe Ramos Social History Tobacco Use Types Packs/Day Years Used Date Smoking Tobacco: Former Cigarettes Smokeless Tobacco: Never Alcohol Use Standard Drinks/Week Comments Not Currently 0 (1 standard drink = 0.6 oz pur e alcohol) [facility] Utilities Answer Date Recorded In [...] AM EST Request for records faxed to [facility] at [phone]. documented in this encounter Plan of Treatment Upcoming Encounters Date Type Department Care Team (Late st Contact Info) Description 10/31/2024 9:30 AM EST Appointment Non-[place] [address] Mushtaq Murphy APRN 10/31/2024 11:00 AM EST Office Visit Cardiology at [address] [phone] Mushtaq Murphy APRN documented as of this encounter Visit Diagnoses Not on filedocumented in this encounter Care Teams Floral Clerk Relationship Specialty Start Date End Date Alexia Mtz APRN [address] [place] [address] PCP - General Family Medicine 11/18/24 documented as of this encounter
--- OUTSIDE RECORDS SUMMARY | 2024-10-10 10:14 | XMS_ITS | Encounter Summary ---
[place] [address] Care Team Providers Care Loss Claim Clerk Name Role Phone Alexia Mtz Shun ALCALA Primary Care Provider [phone] Reason for Referral * Diagnostic Test (Routine) - Closed Specialty Diagnoses / Procedures Referred By Contac t Referred To Contact Cardiology Diagnoses HFrEF (heart failure with reduced ejection fraction) Procedures Echocardiogram Transthoracic Rudolph Royal APRN [facility] [place] [address] Referral ID Status Reason Start Date Expiration Date V isits Requested Visits Authorized [id number] Closed Specialty Service Requested 10/01/2024 10/01/2025 1 1 Reason for Visit * Diagnostic Test (Routine) - Closed Specialty Diagnoses / Procedures Referred By Contac t Referred To Contact Cardiology Diagnoses HFrEF (heart failure with reduced ejection fraction) Procedures Echocardiogram Transthoracic Rudolph Royal APRN [facility] [place] [address] Referral ID Status Reason Start Date Expiration Date V isits Requested Visits Authorized [id number] Closed Specialty Service Requested 10/01/2024 10/01/2025 1 1 Encounter Details Date Type Department Care Team (Latest Contact Info) Description 10/01/2024 11:00 AM EST - 10/01/2024 11:59 PM EST Hospital Encounter [place] [address] Rudolph Royal APRN HFrEF (heart failure with reduced ejection fraction) Discharge Disposition: Home Social History Tobacco Use Types Packs/Day Years Used Date Smoking Tobacco: Former Cigarettes Smokeless Tobacco: Never Alcohol Use Standard Drinks/Week Comments Not Currently 0 (1 standard drink = 0.6 oz pur e alcohol) [facility] Utilities Answer Date Recorded In the past 12 months has th e electric, gas, oil, or water [employer] threatened to shut off services in your [...] mouth. spironolactone (Aldactone) 25 mg tablet Take 1 tablet by mouth daily for 90 days. 30 tablet 2 10/02/2024 12/31/2024 dapagliflozin propanediol (Farxiga) 10 mg tablet Take [...] 9:30 AM EST Appointment [place] [address] Rudolph Royal APRN 10/31/2024 11:00 AM EST Office Visit Cardiology at [address] [address] Rudolph Royal, TAXIMETER REPAIRER documented as of this encounter Procedures Procedure [...] EST Narrative 10/01/2024 1:22 PM EST [address] [place] [address] ? Echocardiogram Report Name: KOREY BERMUDEZ ? Study Date: 10/01/2024 11:06 AMBP: 119/78 mmHg : 1950 ? Height: 168 cm ? Account: [id number] Age: 74 yrs ? Weight: 62 kg Gender: Male ?BSA: 1.7 m2 Ordering Physician: RUDOLPH ROYAL Referring Physician: RUDOLPH ROYAL Performed By: OMERO Baez Reason For Study: Chest pain Exam Location: [facility]. Interpretation Summary Left ventricular systolic function is [...] the findings are similar. Procedure Limited - [id number]. Image enhancement Optison was used for left [...] Note Pablo Tam MD - 10/01/2024 [address] [place] [id number] Echocardiogram Report Name: KOREY BERMUDEZ Study Date: 1:06 AMBP: 119/78 mmHg : 1950 Height: 168 cm Account: [id number] Age: 74 yrs Weight: 62 kg Gender: Male BSA: 1.7 m2 Ordering Physician: RUDOLPH ROYAL Referring Physician: RUDOLPH ROYAL Performed By: OMERO Baez Reason For Study: Chest pain Exam Location: [facility]. Interpretation Summary Left ventricular systolic function is [...] 07/30/2024, the findings aresimilar. Procedure Limited - [id number]. Image enhancement Optison was used for left [...] mLs documented in this encounter Care Teams Loss Claim Clerk Relationship Specialty Start Date End Date Alexia Mtz APRN [address] [place] [address] PCP - General Family Medicine 07/30/24 documented as of this encounter
--- OUTSIDE RECORDS SUMMARY | 2024-10-10 10:14 | XMS_ITS | Encounter Summary ---
Author Organization [facility] [place] [address] Care Team Providers Care Patternmaker Wood Name Role Phone Alexia Mtz FREDRICK Primary Care Provider [phone] Encounter Details Date Type Department Care Team (Late st Contact Info) Description 10/02/2024 Telephone Cardiology at [address] [phone] Tre Gibbons, RN Social History Tobacco Use Types Packs/Day Years Used Date Smoking Tobacco: Former Cigarettes Smokeless Tobacco: Never Alcohol Use Standard Drinks/Week Comments Not Currently 0 (1 standard drink = 0.6 oz pur e alcohol) [facility] Utilities Answer Date Recorded In [...] any time in the past 12 m [facility], were you homeless or living [...] out to Mr. Montoya in response to [employer] message sent by Mushtaq Murphy APRN: I was looking through your chart and would like to increase your spironolactone to a full tab of 25 mg. Mr. Montoya return verbalizes understanding of the above. We also reviewed the loader operator team and I encouraged him to call us anytime, as well as record weight and blood pressure regularly. documented in this encounter Plan of Treatment Upcoming Encounters Date Type Department Care Team (Late st Contact Info) Description 10/31/2024 9:30 AM EST Appointment Non-[place] [address] Mushtaq Murphy APRN 10/31/2024 11:00 AM EST Office Visit Cardiology at [address] [phone] Mushtaq Murphy APRN documented as of this encounter Visit Diagnoses Not on filedocumented in this encounter Care Teams Patternmaker Wood Relationship Specialty Start Date End Date Alexia Mtz, FREDRICK [address] [place] [address] PCP - General Family Medicine 07/30/24 documented as of this encounter
--- OUTSIDE RECORDS SUMMARY | 2024-10-10 10:14 | XMS_ITS | Clinical Summary ---
Author Organization [facility] [place] [address] Care Team Providers Care Rivet Machine Operator Name Role Phone Alexia Mtz FREDRICK Primary Care Provider [phone] Allergies No known active allergies Medications Medication [...] Team Description 10/02/2024 Notes Only Cardiology at [address] [phone] 10/02/2024 Telephone Cardiology at [address] [phone] Tre Gibbons RN 10/01/2024 1:55 PM EST Laboratory Appointment Lab [address] [place] [address] HFrEF (heart failure with reduced ejection fraction) 10/01/2024 11:00 AM EST - 10/01/2024 11:59 PM EST Hospital Encounter Non[place] [address] Mushtaq Royal APRN HFrEF (heart failure with reduced ejection fraction) Discharge Disposition: Home 10/01/2024 10:00 AM EST Office Visit Cardiology at [address] [phone] Mushtaq Royal, FREDRICK HFrEF (heart failure with reduced ejection fraction); ST elevation myocardial infarction involving left anterior descending (LAD) coronary artery 10/01/2024 Telephone Cardiology at [address] [phone] Chloe Ramos 10/01/2024 Travel 09/21/2024 External Results Non-[place] [address] 07/31/2024 4:30 PM EST - 07/31/2024 5:30 PM EST Surgery [place] [address] Maldonado Luis MD CARDIAC CATHETERIZATION 07/29/2024 6:32 PM EST - 07/29/2024 11:59 PM EST Hospital Encounter [facility] at [address] [address] Arvin Becerra MD Discharge Disposition: Home 07/29/2024 12:00 PM EST - 07/29/2024 12:54 PM EST Surgery Commercial Real Estate Paralegal [place] [phone] Vahe Marvin MD CARDIAC CATHETERIZATION 07/29/2024 11:45 AM EST - 08/04/2024 5:00 PM EST Hospital Encounter Cardiovascular [place] [phone] Vahe Marvin MD Dadekian, MD Keith Richter, MD Eh Galvez Poornima, MD Kostojchin, Anastas, MD Kussaga, Sanjiv Hoffmann MD ST elevation myocardial infarction involving left anterior descending (LAD) coronary artery; HFrEF (heart failure with reduced ejection fraction) Discharge Disposition: Home 07/29/2024 Orders Only Commercial [employer] Paralegal [place] [phone] Susannah Watts PA 07/29/2024 Interpretation Only [address] [phone] Deondre Ferrera MD 07/29/2024 Notes Only Cardiology [place] [phone] Ivan Hernandez MD 07/29/2024 External Results Emergency Department [place] [phone] 07/28/2024 Interpretation Only [address] [phone] Quinten Coffey MD from Last 3 Months [...] drink = 0.6 oz pur e alcohol) [facility] Utilities Answer Date Recorded In the [...] time in the past 12 m [facility], were you homeless or [...] 9:30 AM EST Appointment Non[place] [address] Mushtaq Royal, CERTIFIED MARINE MECHANIC 10/31/2024 11:00 AM EST Office Visit Cardiology at [address] [address] Mushtaq Royal, CERTIFIED MARINE MECHANIC Health Maintenance Due Date Last Done Comments [...] VIEW STAT 07/29/2024 10: [address] [facility] EXTERNAL CARDIOLOGY RESULT Routine 07/29/2024 10:13 AM EST EEG SCAN Routine 07/29/2024 9:44 AM EST XR CHEST ONE VIEW STAT 07/28/2024 10: 22 AM EST COLONOSCOPY Routine 08/30/2023 10:57 AM EST from Last 3 Months or Most Recently Relevant to Health Maintenance Results * (ABNORMAL) pro-Brain Natriuretic Peptide (10/01/2024 12:33 PM EST) NT-proBNP 2,150(H) <=124 pg/mL 10/01/2024 1:18 PM EST [facility] Blood VENOUS BLOOD SPECIMEN / Unknown Venipuncture / Unknown 10/01/2024 12:33 PM EST 10/01/2024 12:38 PM EST Mushtaq Royal CERTIFIED MARINE MECHANIC CHEMISTRY ORDERABLE S Performing Organization Address City/[facility]/ZIP Co de Phone Number [facility] [place] [address] * Magnesium (10/01/2024 12:33 PM EST) Only the most recent of9 resultswithin the time period is included. Pathologist [facility] Magnesium 0.94 0.69 - 1.07 mMol/L 10/01/2024 1:18 PM EST [facility] Blood VENOUS BLOOD SPECIMEN / Unknown Venipuncture / Unknown 10/01/2024 12:33 PM EST 10/01/2024 12:38 PM EST Mushtaq Royal CERTIFIED MARINE MECHANIC CHEMISTRY ORDERABLE S [facility] [place] [address] * Comprehensive metabolic panel Non-fasting (10/01/2024 12:33 PM EST) Only the most recent of2 resultswithin the time period is included. Glucose 76 65 - 199 mg/dL 10/01/2024 1:18 PM [facility] Comment:Glucose Concentratio n >=200 mg/dL plus symptoms is consistent with Diabetes Mellitus. Blood Urea Nitrogen 17 10 - 20 mg/dL 10/01/2024 1:18 PM [facility] Creatinine 1.06 0.80 - 1.50 mg/dL 10/01/2024 1:18 PM [facility] Sodium 142 135 - 145 mMol/L 10/01/2024 1:18 PM [facility] Potassium 4.1 3.5 - 5.0 mMol/L 10/01/2024 1:18 PM [facility] Chloride 105 98 - 107 mMol/L 10/01/2024 1:18 PM [facility] Carbon Dioxide 25 22 - 31 mMol/L 10/01/2024 1:18 PM [facility] Anion Gap 12 5 - 15 mMol/L 10/01/2024 1:18 PM [facility] Calcium 9.5 8.5 - 10.5 mg/dL 10/01/2024 1:18 PM [facility] Protein, Total 7.2 6.1 - 8.0 g/dL 10/01/2024 1:18 PM [facility] Albumin 4.3 3.2 - 5.2 g/dL 10/01/2024 1:18 PM [facility] Aspartate Aminotransferase 18 <=39 unit/L 10/01/2024 1:18 PM [facility] Alanine Aminotransferase 18 0 - 55 unit/L 10/01/2024 1:18 PM [facility] Alkaline Phosphatase 94 40 - 130 unit/L 10/01/2024 1:18 PM [facility] Bilirubin, Total 0.4 <=1.3 mg/dL 10/01/2024 1:18 PM EST [facility] Est Glomerular Filtration Rate - Male 75 mL/min/1. 73 m?? 10/01/2024 1:18 PM EST [facility] Comment: This [...] Fasting Status No 10/01/2024 1:18 PM EST [facility] Blood VENOUS BLOOD SPECIMEN / Unknown Venipuncture / Unknown 10/01/2024 12:33 PM EST 10/01/2024 12:38 PM EST Mushtaq Royal APRN CHEMISTRY ORDERABLE S [facility] [place] [address] * ECHO LMTD W CONTRAST W LMTD SPEC DOPP COLOR DOPP (10/01/2024 12:15 PM EST) EF 33 HEARTLAB SYSTEM Anatomical Region Laterality Modality Cardiac Other 10/01/2024 11:0 6 AM EST Narrative 10/01/2024 1:22 PM EST [address] [place] [address] ? Echocardiogram Report Name: KOREY MONTOYA ? Study Date: 10/01/2024 11:06 AMBP: 119/78 mmHg : 1950 ? Height: 168 cm ? Account: [id number] Age: 74 yrs ? Weight: 62 kg Gender: Male ?BSA: 1.7 m2 Ordering Physician: MUSHTAQ ROYAL Referring Physician: MUSHTAQ ROYAL Performed By: OMERO Baez Reason For Study: Chest pain Exam Location: [facility]. Interpretation Summary Left ventricular systolic [...] the findings are similar. Procedure Limited - 67699. Image enhancement Optison was used for left [...] Note Pablo Tam MD - 10/01/2024 1 [place] [address] Echocardiogram Report Name: KOREY MONTOYA Study Date: 511:06 AMBP: 119/78 mmHg : 1950 Height: 168 cm Account: [id number] Age: 74 yrs Weight: 62 kg Gender: Male BSA: 1.7 m2 Ordering Physician: MUSHTAQ ROYAL Referring Physician: MUSHTAQ ROYAL Performed By: OMERO Baez Reason For Study: Chest pain Exam Location: [facility]. Interpretation Summary Left ventricular systolic [...] 07/30/2024, the findings aresimilar. Procedure Limited - 39327. Image enhancement Optison was used for left [...] (Bezet) 428 ms MUSE SYSTEM Calculated P Boykins 83 degrees MUSE SYSTEM Calculated R Boykins 88 degrees MUSE SYSTEM Calculated T Boykins 159 degrees MUSE SYSTEM INTERPRETATION Normal sinus rhythm Low voltage QRS 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) T wave abnormality, consider lateral ischemia ACUTE [place] / STEMI Abnormal ECG When [...] 9.50 x10(3)/mc L 08/04/2024 6:39 AM EST [facility] Red Blood Cell 4.28(L) 4.58 [...] MD HEMATOLOGY ORDERABLE S Performing Organization Address City/State/[facility] Co de Phone Number [facility] [place] [address] * Basic Metabolic Panel (08/04/2024 6:08 AM [...] Stauffer MD CHEMISTRY ORDERABLES [facility] [place] [address] * POC, GLUCOSE (08/02/2024 7:47 AM EST) [...] CARE TEST O RDERABLES [facility] [place] [address] * Scan Doc: Telemetry Strips (08/02/2024 7:37 [...] MD CHEMISTRY ORDERABL ES [facility] [place] [address] * (ABNORMAL) Cooximetry, POC (08/01/2024 10:45 AM [...] CARE TEST O RDERABLES Performing Organization Address City/State/[facility] Co de Phone Number [facility] [place] [address] * CARDIAC CATHETERIZATION (07/31/2024 5:53 PM EST) Only the most recent of2 resultswithin the time period is included. Anatomical Region Laterality Modality Other Narrative 08/01/2024 12:37 PM EST ?[facility] ? Cardiac Catheterization/Intervention Report ? Patient Name: Korey Montoya Kyrie. ? Procedure Date: 07/31/2024 ? A #: [id number] ? Primary Physician: Janelle, Maldonado T ? Case #: [id number] ? File Name: [id number] ? Catheterization Order Number: [id number] ? [facility] ? Final Report [place], [place] ? Patient Name: ? Korey P. Montoya ?ID#: ?[id number] ? : ?1950 ? Procedure Date: ? [...] ? Comments: ?Impella removed from the right ENTRY DRIVER OPERATOR with deployment of Perclose and ?Angioseal. ??Good hemostasis. ?The attending physician was present for the entire procedure. ?Dr. Maldonado Luis M.D. was present during the moderate sedation ?intraservice time as documented by the sedation nurse. ??Case time = 00:35. ?Dr. Maldonado Luis M.D. performed the vascular closure device and ?ventricular assist device removal. ? Maldonado Luis M.D. ? Electronically Signed by: Malodnado Luis M.D. ? Report Finalized: 08/01/2024 ??12:31 ? Procedure Note Maldonado Luis MD - 08/01/2024 [facility] Cardiac Catheterization/Intervention Report Patient Name: Korey MontoyaToby Procedure Date: 07/31/2024 A #: [id number] Primary Physician: Maldonado Luis Case #: [id number] File Name: [id number] Catheterization Order Number: [id number] [facility] FinalReport [place], [place] Patient Name: Korey Montoya ID#:[id number] :1950 Procedure Date: July 31, 2024 Case [...] was designated as ASA Class IV. The [facility] clinical frailtyscale is 4: Vulnerable. [...] procedures. Comments: Impella removed from the right ENTRY DRIVER OPERATOR with deployment of Perclose and Angioseal. [...] 7.48(H) 7.35 - 7.45 07/31/2024 8:30 AM [facility] PCO2, Arterial 29(L) 35 - 45 mmHg 07/31/2024 8:30 AM [facility] PO2, Arterial 71(L) 85 - 104 mmHg 07/31/2024 8:30 AM [facility] Bicarbonate, Arterial 20.6 20.0 - 26.0 mmol/L 07/31/2024 8:30 AM [facility] Base Excess, Arterial -3.0 [...] CARE TEST O RDERABLES [facility] [place] [address] * (ABNORMAL) Hepatic Function Panel (07/31/2024 1:08 AM EST) Albumin 3.1(L) 3.2 - 5.2 g/dL 07/31/2024 1:46 AM [facility] Aspartate Aminotransferase 192(H) <=39 unit/L 07/31/2024 1:46 AM [facility] Alanine Aminotransferase 59(H) 0 - 55 unit/L 07/31/2024 1:46 AM [facility] Alkaline Phosphatase 46 40 - 130 unit/L 07/31/2024 1:46 AM EST [facility] Bilirubin, Total 0.4 <=1.3 mg/dL 07/31/2024 1:46 AM EST [facility] Bilirubin, Direct <0.2 0.0 - 0.3 mg/dL 07/31/2024 1:46 AM EST [facility] Protein, Total 5.0(L) 6.1 - 8.0 g/dL 07/31/2024 1:46 AM EST [facility] Blood VENOUS BLOOD SPECIMEN / Unknown Venipuncture / Unknown 07/31/2024 1:08 AM EST 07/31/2024 1:18 AM EST Arnel Parker MD CHEMISTRY ORDERABLES Performing Organization Address [facility]/ZIP Co de Phone Number [facility] [place] [address] * (ABNORMAL) Phosphorus (07/30/2024 3:08 PM EST) Only the most recent of3 resultswithin the time period is included. Phosphorus 2.1(L) 2.5 - 4.5 mg/dL 07/30/2024 3:58 PM EST [facility] Blood VENOUS BLOOD SPECIMEN / Unknown Venipuncture / Unknown 07/30/2024 3:08 PM EST 07/30/2024 3:12 PM EST Jay Silverio MD CHEMISTRY ORDERABL ES Performing Organization Address City/[facility]/ZIP Co de Phone Number [facility] [place] [address] * ECHO LMTD W CONTRAST W LMTD SPEC DOPP COLOR DOPP (07/30/2024 11:42 AM EST) Anatomical Region Laterality Modality Cardiac Other 07/30/2024 10:2 2 AM EST Narrative 07/30/2024 12:34 PM EST [address] [place] [address] ? Echocardiogram Report Name: KOREY MONTOYA ? Study Date: 07/30/2024 10:22 AMBP: 124/66 mmHg : 1950 ? Height: 168 cm ? Account: [id number] Age: 74 yrs ? Weight: 65 kg [...] Compared to the overnight study by the electrical electronics engineer fellow the impella position is stable. 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 Procedure Limited - 41731. Image enhancement Definity was used for both [...] Note Kathleen Banda MD - 07/30/2024 1 [place] [address] Echocardiogram Report Name: KOREY MONTOYA Kyrie Study Date: 410:22 AMBP: 124/66 mmHg : 1950 Height: 168 cm Account: [id number] Age: 74 yrs Weight: 65 kg Gender: Male BSA: 1.7 m2 Ordering Physician: Jay Silverio MD Referring Physician: DEONDRE FERRERA Performed By: OMERO Mlilan Reason For Study: ST elevation myocardial infarction [...] Compared to the overnight study by the electrical electronics engineer fellow the impella positionis stable. The global left ventricular systolic function has improvedpredominantly via recruitment outside the LAD territory which remains akinetic. Procedure Limited - 72541. Image enhancement Definity was used for both [...] troponin value can be found in the [facility] Laboratory Test Catalog Troponin - [email or web address] Reference: Fourth [place] Definition of Myocardial Infarction. Journal of the [place] College [employer] Card[employer] 2018;72:8666-9378 Blood VENOUS BLOOD SPECIMEN / Unknown Venipuncture / Unknown 07/30/2024 8:09 AM EST 07/30/2024 8:26 AM EST Jay Silverio MD CHEMISTRY ORDERABL ES [facility] [place] [address] * Echocardiogram Transthoracic (07/30/2024 1:41 AM EST) Anatomical Region Laterality Modality Cardiac Other 07/30/2024 1:41 AM EST Narrative 07/30/2024 8:23 AM EST [address] [place] [address] ? Echocardiogram Report Name: KOREY MONTOYA ? Study Date: 07/30/2024 01:41 AM : 1950 ? Height: 168 cm Age: 74 yrs ? Weight: 5.9 kg Gender: Male ?BSA: 0.63 m2 Performed By: Beatris Ching MD Reason For Study: STEMI, VT History: ASCVD, HTN, HLD Interpreting Fellow: Beatris Ching. Interpretation Summary This is a limited study performed by a fellow electrical electronics engineer to evaluate for cardiogenic shock with [...] study available for comparison. Procedure Limited - 87660. Suboptimal quality. There is sinus bradycardia. Left [...] Note Kathleen Banda MD - 07/30/2024 1 [place] [address] Echocardiogram Report Name: KOREY MONTOYA Study Date: 07/30/2024 01:41AM : 1950 Height: 168 cm Age: 74 yrs Weight: 5.9 kg Gender: Male BSA: 0.63 m2 Performed By: Beatris Ching MD Reason For Study: STEMI, VT History: ASCVD, HTN, HLD Interpreting Fellow: Beatris Ching. Interpretation Summary This is a limited study performed by a fellow electrical electronics engineer to evaluate forcardiogenic shock with impella [...] study available for comparison. Procedure Limited - 73409. Suboptimal quality. There is sinus bradycardia. Left [...] Recheck AB POSITIVE 07/29/2024 10:13 PM EST [facility] Blood VENOUS BLOOD SPECIMEN / Unknown Venipuncture / Unknown 07/29/2024 6:43 PM EST 07/29/2024 7:15 PM EST Jay Silverio MD BLOOD BANK LAB ORD ERABLES [facility] [place] [id number] * Type and screen ([facility]JONG/MAGALIE) (07/29/2024 5:56 PM EST) ABORH Type AB POSITIVE 07/29/2024 9:44 PM EST [facility] PATIENT HISTORY Not Found 07/29/2024 9:44 PM EST [facility] Expires at [id number] on: 08/01/2024 07/29/2024 9:44 PM EST [facility] ANTIBODY SCREEN AUTOMATED Negative 07/29/2024 9:44 PM EST [facility] T&S only valid at [facility] 07/29/2024 9:44 PM EST [facility] Blood VENOUS BLOOD SPECIMEN / Unknown Venipuncture / Unknown 07/29/2024 5:56 PM EST 07/29/2024 6:07 PM EST Narrative [facility] - 07/29/2024 9:44 PM EST This Type and Screen result is only valid at the [facility] Jay Silverio MD BLOOD BANK LAB ORD ERABLES Performing Organization Address City/[facility]/ZIP Co de Phone Number [facility] [place] [address] * Blood culture (07/29/2024 4:08 PM EST) Only the most recent of2 resultswithin the time period is included. Blood Culture No growth at 120 hours 08/03/2024 5:01 PM EST [facility] Blood VENOUS BLOOD SPECIMEN / Unknown Venipuncture / Unknown 07/29/2024 4:08 PM EST 07/29/2024 4:15 PM EST Jay Silverio MD MICROBIOLOGY - BLO OD ORDERABLES Performing Organization Address [facility] Co de Phone Number [facility] [place] [address] * XR Chest One View (07/29/2024 2:30 PM EST) Only the most recent of3 resultswithin the time period is included. WORKSTATION ID [id number] [facility] Anatomical Region Laterality Modality Chest N/A Digital [...] have questions please contact the health child day care teacher that requested your imaging first. ? Electronically signed by: Chris Candelaria MD, [facility] ([phone]), at 07/29/2024 3:21 PM Narrative 07/29/2024 3:21 [...] who have questions please contactthe health child day care teacher that requested your imaging first. Electronically signed by: Chris Candelaria MD, [facility]([phone]), at 07/29/2024 3:21 PM Vahe Marvin MD IMG DX ORDERABLES * TSH Jackson (07/29/2024 2:03 PM EST) Thyroid Stimulating Hormone 0.70 0.27 - 4.20 mcIU/mL 07/29/2024 2:52 PM EST [facility] Blood VENOUS BLOOD SPECIMEN / Unknown Venipuncture / Unknown 07/29/2024 2:03 PM EST 07/29/2024 2:14 PM EST Vahe Marvin MD CHEMISTRY ORDERABLES Performing Organization Address [facility]/ZIP Co de Phone Number [facility] [place] [address] * CRP, acute inflammation (07/29/2024 2:03 PM EST) C-Reactive Protein <3.0 <=4.9 mg/L 07/29/2024 2:52 PM EST [facility] Blood VENOUS BLOOD SPECIMEN / Unknown Venipuncture / Unknown 07/29/2024 2:03 PM EST 07/29/2024 2:14 PM EST Vahe Marvin MD CHEMISTRY ORDERABLES Performing Organization Address [facility] Co de Phone Number [facility] [place] [address] * (ABNORMAL) APTT (07/29/2024 2:03 PM EST) Partial Thromboplastin Time >160(HHH) 25 - 37 sec 07/29/2024 2:56 PM EST [facility] Blood VENOUS BLOOD SPECIMEN / Unknown Venipuncture / Unknown 07/29/2024 2:03 PM EST 07/29/2024 2:13 PM EST Vahe Marvin MD HEMATOLOGY ORDERABLE S Performing Organization Address City/[facility]/ZIP Co de Phone Number [facility] [place] [address] * (ABNORMAL) Prothrombin Time (07/29/2024 2:03 PM [...] MD HEMATOLOGY ORDERABLE S [facility] [place] [address] * Hemoglobin A1c (07/29/2024 2:03 PM EST) [...] red blood cell turnover may not be union contract representative of glycemic control. Reference Interval: 4.3 [...] EST 07/29/2024 2:14 PM EST [facility] - 07/29/2024 2:41 PM EST Estimated average glucose (eAG) is calculated from the equation described in: Quinten ALVES, Rikki Booth, [place] R, et al. ??Translating the A1C assay into estimated average glucose values. ??Diabetes Care 2008:31(8):9708-7149. Additional resources are available on the ADA website (diabetes.org). Vahe Marvin MD CHEMISTRY ORDERABLES [facility] [place] [address] * Lipid Panel (Reflex Direct LDL) (07/29/2024 2:03 PM EST) [facility] Cholesterol, Total 133 mg/dL 07/29/2024 2:52 PM [facility] Comment: Desirable: < 200 mg/dL Borderline High: 200 - 239 mg/dL High: > or = 240 mg/dL Triglyceride 45 mg/dL 07/29/2024 2:52 PM [facility] Comment: Normal: <150 mg/dL Borderline High: 150-199 mg/dL High: 200-499 mg/dL Very High: > or =500 mg/dL HDL Cholesterol 58 mg/dL 4 2:52 PM [facility] Comment:Males: [...] 07/29/2024 2:03 PM EST 07/29/2024 2:14 PM [facility] - 07/29/2024 2:52 [...] ACC/AHA Guidelines (most recently Rolf et al. [facility] 06/15/22): * For individuals with atherosclerotic cardiovascular [...] Marvin MD CHEMISTRY ORDERABLES [facility] [place] [address] * (ABNORMAL) Blood Gas, Venous POC (07/29/2024 [...] 0.3 <=1.5 % 07/29/2024 2:02 PM EST [facility] Sodium, Venous 137 135 - 145 mmol/L 07/29/2024 2:02 PM [facility] Potassium, Venous 3.6 3.5 - 5.0 mmol/L 07/29/2024 2:02 PM [facility] Chloride, Venous 103 98 - 107 mmol/L 07/29/2024 2:02 PM EST [facility] Glucose, Venous 229(H) 65 - [...] CARE TEST O RDERABLES Performing Organization Address City/State/[facility] Co de Phone Number [facility] [place] [address] * (ABNORMAL) BLOOD GAS, POC (07/29/2024 12:46 [...] CARE TEST O RDERABLES [facility] [place] [phone] * External Cardiology Result (07/29/2024 10:13 AM EST) Anatomical Region Laterality Modality Other Historical Provider EXTERNAL CARDIOLO GY RESULT * Scan Doc: EEG (07/29/2024 9:44 AM EST) Historical Provider MEDIA MGR SCAN EX T ORDR/RSLT * COLONOSCOPY (08/30/2023 10:57 AM EST) COLONOSCOPY [facility] Endoscopy Procedure Date: 08/30/2023 10:57 AM ? Patient Name: Korey Montoya ? Date of : 1950 ? Age: 73 ? Order #: [id number] ? Instrument Name: [id number] ? Procedure: ? Colonoscopy Indications: ? Rectal [...] preparation was evaluated ? using the BBPS ([place]y Bowel ? Preparation Scale) with scores of: [...] 08/30/2023 10:5 7 AM EST Yoel Artis CERTIFIED MARINE MECHANIC GENERAL SURGICAL ORD ERABLES [employer]ATION from Last 3 Months or Most Recently Relevant to Health Maintenance Advance Directives * Attempt Cardiopulmonary Resuscitation - Inpatient (Latest Code Status on File) Date Activated Date Inactivated Comments 07/29/2024 2:01 PM 08/04/2024 7:34 PM Question Answer Comments Code Status decision made by: Patient Content of discussion: pre-arrest limitations Care Teams Rivet Machine Operator Relationship Specialty Start Date End Date Alexia Mtz APRN [address] [place] [address] PCP - General Family Medicine 07/30/24
--- OUTSIDE RECORDS SUMMARY | 2024-10-10 10:14 | XMS_ITS | Encounter Summary ---
[place] [address] Care Team Providers Care Hearing Healthcare Practitioner Name Role Phone Alexia Mtz FREDRICK Primary Care Provider [phone] Reason for Referral * Diagnostic Test (Routine) - Authorized Specialty Diagnoses / Procedures [facility] Referred To Contact Cardiology Diagnoses HFrEF (heart failure with reduced ejection fraction) Procedures Echocardiogram Transthoracic Mushtaq Royal APRN [facility] [place] [address] Referral ID Status Reason Start Date Expiration Date Visits Requested Visits Authorized [id number] Authorized Specialty Service Requested 10/02/2024 10/02/2025 1 1 * Consultation (Routine) - Closed Specialty Diagnoses / Procedures [facility] Referred To Contact Cardiology Diagnoses HFrEF (heart failure with reduced ejection fraction) ST elevation myocardial infarction involving left anterior descending (LAD) coronary artery Mushtaq Royal APRN [facility] [place] [address] Referral ID Status Reason Start Date Expiration Date V isits Requested Visits Authorized [id number] Closed Consult, Test & Treat 10/02/2024 10/02/2025 36 36 * Diagnostic Test (Routine) - Closed Specialty Diagnoses / Procedures Referred By Contac t Referred To Contact Cardiology Diagnoses HFrEF (heart failure with reduced ejection fraction) Procedures Echocardiogram Transthoracic Mushtaq Royal APRN [facility] [place] [address] Referral ID Status Reason Start Date Expiration Date V isits Requested Visits Authorized [id number] Closed Specialty Service Requested 10/01/2024 10/01/2025 1 1 * Consultation (Routine) - Authorized Specialty Diagnoses / Procedures Referred By Contac t Referred To Contact Diagnoses HFrEF (heart failure with reduced ejection fraction) NUTRITION Initial MNT Mushtaq Royal APRN Copeland, Jean M, [place] [facility] [place] [address] Referral ID Status Reason Start Date Expiration Date Visits Requested Visits Authorized [id number] Authorized Continuity of Care 10/01/2024 10/01/2025 1 1 Reason for Visit * Consultation (Routine) - Closed Specialty Diagnoses / Procedures Referred By Contac t Referred To Contact Cardiology Diagnoses HFrEF (heart failure with reduced ejection fraction) [facility] S/P D/C acute HFrEF Sanjiv Villagran MD [facility] [place] [address] Mushtaq Royal APRN [facility] [place] [address] Referral ID Status Reason Start Date Expiration Date V isits Requested Visits Authorized [id number] Closed Consult, Test & Treat 08/04/2024 08/04/2025 1 1 Encounter Details Date Type Department Care Team (Late st Contact Info) Description 10/01/2024 10:00 AM EST Office Visit Cardiology at [address] [address] Mushtaq Royal APRN HFrEF (heart failure with reduced ejection fraction); ST elevation myocardial infarction involving left anterior descending (LAD) coronary artery Social History Tobacco Use Types Packs/Day Years Used Date Smoking Tobacco: Former Cigarettes Smokeless Tobacco: Never Alcohol Use Standard Drinks/Week Comments Not Currently 0 (1 standard drink = 0.6 oz pur e alcohol) [facility] Utilities Answer Date Recorded In the [...] clinic for weight gain or any question [phone] documented in this encounter Progress Notes * Mushtaq Royal APRN - 10/01/2024 10:00 AM EST Images from the original note were not included. [facility] Section of Advanced Heart Failure Cardiology and Pulmonary Hypertension [facility] [place] [id number] Name: Korey Bermudez Date: 10/01/2024 Referring provider: Sanjiv Villagran MD [facility] [place] [address] History of Present Illness 74 y.o. male with a past medical history of: Ischemic cardiomyopathy EF 33% CAD STEMI - 07/31/2024 - PCI to LAD HLD HTN BPH Patient was admitted on 07/29/2024 after being airlifted by helicopter to [facility] due tofindings of ST elevation patient had awoken that morning with substernal chest pain with bilateral arm discomfort. Patient reported that his discomfort was aching in character was an 8/10. He was seen at the outside hospital anterior, inferior, and lateral ST elevation on EKG. [facility] [place] [facility] heunderwent left heart catheterization which showed 100% [...] placed and he was transferred to the [facility] for an initial cardiac index of 1.97 which improved to 2.2 after Impella placement. Patient required hemodynamic support with vasopressors and eventually on dobutamine. Patient remained in the [facility] until downgraded on 08/01/2021. Patient was discharged from [facility] on 08/04/2024 and presents today in the [...] mild AR. MRI Non invasive ischemic evaluation [facility] 07/29/2024: Left main normal and free of disease. LAD, single discrete total occlusion of the proximal segment, left circumflex is normal. Disease, RCA normal and free of disease. Drug-eluting stent to the proximal and distal LAD [facility] 07/29/2024: (prior to impella) RA 16, [...] 9:30 AM EST Appointment Non-Invasive [place] [address] Mushtaq Royal APRN 10/31/2024 11:00 AM EST Office Visit Cardiology at [address] [address] Mushtaq Royal APRN Scheduled Orders Name Type [...] 2,150(H) <=124 pg/mL 10/01/2024 1:18 PM EST [facility] Blood VENOUS BLOOD SPECIMEN / Unknown Venipuncture / Unknown 10/01/2024 12:33 PM EST 10/01/2024 12:38 PM EST Mushtaq Royal FULL STACK JAVA DEVELOPER CHEMISTRY ORDERABLE S [facility] [place] [address] * Magnesium (10/01/2024 12:33 PM EST) Magnesium 0.94 0.69 - 1.07 mMol/L 10/01/2024 1:18 PM [facility] Blood VENOUS BLOOD SPECIMEN / Unknown Venipuncture / Unknown 10/01/2024 12:33 PM EST 10/01/2024 12:38 PM EST Mushtaq Royal FULL STACK JAVA DEVELOPER CHEMISTRY ORDERABLE S Performing Organization Address City/[facility]/ZIP Co de Phone Number [facility] [place] [address] * Comprehensive metabolic panel Non-fasting (10/01/2024 12:33 PM EST) Glucose 76 65 - 199 mg/dL 10/01/2024 1:18 PM EST [facility] Comment:Glucose Concentratio n >=200 mg/dL plus symptoms is consistent with Diabetes Mellitus. Blood Urea Nitrogen 17 10 - 20 mg/dL 10/01/2024 1:18 PM [facility] Creatinine 1.06 0.80 - 1.50 mg/dL 10/01/2024 1:18 PM EST [facility] Sodium 142 135 - 145 mMol/L 10/01/2024 1:18 PM [facility] Potassium 4.1 3.5 - 5.0 mMol/L 10/01/2024 1:18 PM [facility] Chloride 105 98 - 107 mMol/L 10/01/2024 1:18 PM [facility] Carbon Dioxide 25 22 - 31 mMol/L 10/01/2024 1:18 PM [facility] Anion Gap 12 5 - 15 mMol/L 10/01/2024 1:18 PM [facility] Calcium 9.5 8.5 - 10.5 mg/dL 10/01/2024 1:18 PM [facility] Protein, Total 7.2 6.1 - 8.0 g/dL 10/01/2024 1:18 PM [facility] Albumin 4.3 3.2 - 5.2 g/dL 10/01/2024 1:18 PM [facility] Aspartate Aminotransferase 18 <=39 unit/L 10/01/2024 1:18 PM [facility] Alanine Aminotransferase 18 0 - 55 unit/L 10/01/2024 1:18 PM [facility] Alkaline Phosphatase 94 40 - 130 unit/L 10/01/2024 1:18 PM [facility] Bilirubin, Total 0.4 <=1.3 mg/dL 10/01/2024 1:18 PM [facility] Est Glomerular Filtration Rate - Male 75 mL/min/1. 73 m?? 10/01/2024 1:18 PM [facility] Comment: This [...] Foundation Fasting Status No 10/01/2024 1:18 PM [facility] Blood VENOUS BLOOD SPECIMEN / Unknown Venipuncture / Unknown 10/01/2024 12:33 PM EST 10/01/2024 12:38 PM EST Mushtaq Royal FULL STACK JAVA DEVELOPER CHEMISTRY ORDERABLE S [facility] [place] [address] * ECHO LMTD W CONTRAST W LMTD SPEC DOPP COLOR DOPP (10/01/2024 12:15 PM EST) EF 33 HEARTLAB SYSTEM Anatomical Region Laterality Modality Cardiac Other 10/01/2024 11:0 6 AM EST Narrative 10/01/2024 1:22 PM EST 1 [place] [address] ? Echocardiogram Report Name: KOREY BERMUDEZ ? Study Date: 10/01/2024 11:06 AMBP: 119/78 mmHg : 1950 ? Height: 168 cm ? Account: [id number] Age: 74 yrs ? Weight: 62 kg Gender: Male ?BSA: 1.7 m2 Ordering Physician: MUSHTAQ ROYAL Referring Physician: MUSHTAQ ROYAL Performed By: Joanne Damon, RCS Reason For Study: Chest pain Exam Location: [facility]. Interpretation Summary Left ventricular [...] the findings are similar. Procedure Limited - 24386. Image enhancement Optison was used for left [...] Note Pablo Tam MD - 10/01/2024 1 [place] [address] Echocardiogram Report Name: KOREY BERMUDEZ Study Date: 1:06 AMBP: 119/78 mmHg : 1950 Height: 168 cm Account: [id number] Age: 74 yrs Weight: 62 kg Gender: Male BSA: 1.7 m2 Ordering Physician: MUSHTAQ ROYAL Referring Physician: MUSHTAQ ROYAL Performed By: OMERO Baez Reason For Study: Chest pain Exam Location: [facility]. Interpretation Summary Left ventricular [...] 07/30/2024, the findings aresimilar. Procedure Limited - 06671. Image enhancement Optison was used for left [...] (Bezet) 428 ms MUSE SYSTEM Calculated P Caspian 83 degrees MUSE SYSTEM Calculated R Caspian 88 degrees MUSE SYSTEM Calculated T Caspian 159 degrees MUSE SYSTEM INTERPRETATION Normal sinus rhythm Low voltage QRS 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) T wave abnormality, consider lateral ischemia ACUTE NC / STEMI Abnormal ECG When [...] fraction) documented in this encounter Care Teams Hearing Healthcare Practitioner Relationship Specialty Start Date End Date Alexia Mtz, FREDRICK [address] [place] [address] PCP - General Family Medicine 07/30/24 documented as of this encounter
--- OUTSIDE RECORDS SUMMARY | 2024-10-10 10:14 | XMS_ITS | Encounter Summary ---
Author Organization [facility] Address [facility] [place] [address] Care Team Providers Care Industrial Relations Commissioner Name Role Phone Alexia Mtz FREDRICK Primary Care Provider [phone] Encounter Details Date Type Department Care Team (Late st Contact Info) Description 10/02/2024 Notes Only Cardiology at [address] [address] Alok Eaton, RD [facility] [place] [address] Social History Tobacco Use Types Packs/Day Years Used Date Smoking Tobacco: Former Cigarettes Smokeless Tobacco: Never Alcohol Use Standard Drinks/Week Comments Not Currently 0 (1 standard drink = 0.6 oz pur e alcohol) [facility] Utilities Answer Date Recorded In the past 12 months has e [employer], gas, oil, or water [employer] threatened to shut off services in your [...] the past 12 m [facility], were you homeless or living [...] call-back number to schedule telehealth visit through guidance secretary: [phone] Option #2. documented in this encounter Plan of Treatment Upcoming Encounters Date Type Department Care Team (Late st Contact Info) Description 10/31/2024 9:30 AM EST Appointment Non-[place] [address] Mushtaq Murphy APRN 10/31/2024 11:00 AM EST Office Visit Cardiology at [address] [address] Mushtaq Murphy APRN documented as of this encounter Visit Diagnoses Not on filedocumented in this encounter Care Teams Industrial Relations Commissioner Relationship Specialty Start Date End Date Alexia Mtz APRN [address] [place] [address] PCP - General Family Medicine 07/30/24 documented as of this encounter
--- OUTSIDE RECORDS SUMMARY | 2024-10-10 10:14 | XMS_ITS | Encounter Summary ---
[place] [address] Care Team Providers Care Skidder Runner Name Role Phone Alexia Mtz FREDRICK Primary Care Provider [phone] Encounter Details Date Type Department Care Team (Late st Contact Info) Description 09/21/2024 External Results Non-[place] [phone] Social History Tobacco Use Types Packs/Day Years [...] any time in the past 12 m [facility], were you homeless or [...] AM EST Appointment Non-[place]vasive [place] [address] Mushtaq Murphy APRN 10/31/2024 11:00 AM EST Office Visit Cardiology at [address] [address] Mushtaq Murphy APRN documented as of this encounter Procedures Procedure Name Priority Date/Time Associated Diagnosis Comments EEG SCAN Routine 07/29/2024 9:44 AM EST documented in this encounter Results * Scan Doc: EEG (07/29/2024 9:44 AM EST) Historical Provider MD CLANCY MGR SCAN EX T ORDR/RSLT documented in this encounter Visit Diagnoses Not on filedocumented in this encounter Care Teams Skidder Runner Relationship Specialty Start Date End Date Alexia Mtz APRN [address] [place] [address] PCP - General Family Medicine 11/18/24 documented as of this encounter
--- OUTSIDE RECORDS SUMMARY | 2024-10-10 10:14 | XMS_ITS | Encounter Summary ---
Author Organization [facility] [place] [address] Care Team Providers Care Red Cap Name Role Phone Alexia Mtz FREDRICK Primary Care Provider [phone] Encounter Details Date Type Department Care Team (Latest Contact Info) Description 10/01/2024 Travel Social History Tobacco Use Types Packs/Day Years Used Date Smoking Tobacco: Former Cigarettes Smokeless Tobacco: Never Alcohol Use Standard Drinks/Week Comments Not Currently 0 (1 standard drink = 0.6 oz pur e alcohol) [facility] Utilities Answer Date Recorded In [...] 9:30 AM EST Appointment [place] [address] Mushtaq Murphy, VOCATIONAL REHABILITATION ADMINISTRATOR 10/31/2024 11:00 AM EST Office Visit Cardiology at [address] [address] Mushtaq Murphy, VOCATIONAL REHABILITATION ADMINISTRATOR documented as of this encounter Visit Diagnoses Not on filedocumented in this encounter Care Teams Red Cap Relationship Specialty Start Date End Date Alexia Mtz APRN [address] [place] [address] PCP - General Family Medicine 07/30/24 documented as of this encounter
--- OUTSIDE RECORDS SUMMARY | 2024-10-10 10:14 | XMS_ITS | Encounter Summary ---
[place] [address] Care Team Providers Care Insulating Machine Operator Name Role Phone Alexia Mtz FREDRICK Primary Care Provider [phone] Encounter Details Date Type Department Care Team (Latest Contact Info) Description 10/01/2024 1:55 PM EST Laboratory Appointment Lab [address] [phone] HFrEF (heart failure with reduced ejection fraction) Social History Tobacco Use Types Packs/Day Years Used Date Smoking Tobacco: Former Cigarettes Smokeless Tobacco: Never Alcohol Use Standard Drinks/Week Comments Not Currently 0 (1 standard drink = 0.6 oz pur e alcohol) [facility] Utilities Answer Date Recorded In the past 12 months has [employer], gas, oil, or water [employer] threatened to shut off services in your [...] 9:30 AM EST Appointment Non-[place] [address] Mushtaq Murphy, WIND OPERATIONS MANAGER 10/31/2024 11:00 AM EST Office Visit Cardiology at [address] [address] Mushtaq Murphy, WIND OPERATIONS MANAGER documented as of this encounter Procedures [...] 65 - 199 mg/dL 10/01/2024 1:18 PM [facility] Comment:Glucose Concentratio n >=200 mg/dL plus symptoms is consistent with Diabetes Mellitus. Blood Urea Nitrogen 17 10 - 20 mg/dL 10/01/2024 1:18 PM [facility] Creatinine 1.06 0.80 - 1.50 mg/dL 10/01/2024 1:18 PM [facility] Sodium 142 135 - 145 mMol/L 10/01/2024 1:18 PM [facility] Potassium 4.1 3.5 - 5.0 mMol/L 10/01/2024 1:18 PM [facility] Chloride 105 98 - 107 mMol/L 10/01/2024 1:18 PM [facility] Carbon Dioxide 25 22 - 31 mMol/L 10/01/2024 1:18 PM [facility] Anion Gap 12 5 - 15 mMol/L 10/01/2024 1:18 PM [facility] Calcium 9.5 8.5 - 10.5 mg/dL 10/01/2024 1:18 PM [facility] Protein, Total 7.2 6.1 - 8.0 g/dL 10/01/2024 1:18 PM [facility] Albumin 4.3 3.2 - 5.2 g/dL 10/01/2024 1:18 PM [facility] Aspartate Aminotransferase 18 <=39 unit/L 10/01/2024 1:18 PM [facility] Alanine Aminotransferase 18 0 - 55 unit/L 10/01/2024 1:18 PM [facility] Alkaline Phosphatase 94 40 - 130 unit/L 10/01/2024 1:18 PM [facility] Bilirubin, Total 0.4 <=1.3 mg/dL 10/01/2024 1:18 PM [facility] Est Glomerular Filtration Rate - Male 75 mL/min/1. 73 m?? 10/01/2024 1:18 PM EST [facility] [...] Fasting Status No 10/01/2024 1:18 PM EST [facility] Blood VENOUS BLOOD SPECIMEN / Unknown Venipuncture / Unknown 10/01/2024 12:33 PM EST 10/01/2024 12:38 PM EST Mushtaq Murphy WIND OPERATIONS MANAGER CHEMISTRY ORDERABLE S [facility] [place] [address] * Magnesium (10/01/2024 12:33 PM EST) Magnesium 0.94 0.69 - 1.07 mMol/L 10/01/2024 1:18 PM EST [facility] Blood VENOUS BLOOD SPECIMEN / Unknown Venipuncture / Unknown 10/01/2024 12:33 PM EST 10/01/2024 12:38 PM EST Mushtqa Murphy WIND OPERATIONS MANAGER CHEMISTRY ORDERABLE S [facility] [place] [address] * (ABNORMAL) pro-Brain Natriuretic Peptide (10/01/2024 12:33 PM EST) NT-proBNP 2,150(H) <=124 pg/mL 10/01/2024 1:18 PM EST [facility] Blood VENOUS BLOOD SPECIMEN / Unknown Venipuncture / Unknown 10/01/2024 12:33 PM EST 10/01/2024 12:38 PM EST Mushtaq Murphy WIND OPERATIONS MANAGER CHEMISTRY ORDERABLE S [place] [phone] documented in this encounter Visit Diagnoses Diagnosis HFrEF (heart failure with reduced ejection fraction) documented in this encounter Care Teams Insulating Machine Operator Relationship Specialty Start Date End Date Alexia Mtz APRN [address] [place] [address] PCP - General Family Medicine 07/30/24 documented as of this encounter
--- OUTSIDE RECORDS SUMMARY | 2024-10-10 10:15 | XMS_ITS | Encounter Summary ---
Author Organization [facility] Address [facility] [place] [address] Care Team Providers Care Powertrain Engineer Name Role Phone HustisfordAlexia shell Shun ALCALA Primary Care Provider [phone] Reason for Referral * Consultation (Routine) - Closed Specialty Diagnoses / Procedures Referred By Conteleazar t Referred To Contact Cardiology Diagnoses HFrEF (heart failure with reduced ejection fraction) [facility] S/P D/C acute HFrEF Alex Small MD [facility] [place] [address] Mushtaq Murphy APRN [facility] [place] [address] Referral ID Status Reason Start Date Expiration Date V isits Requested Visits Authorized [id number] Closed Consult, Test & Treat 08/04/2024 08/04/2025 1 1 * Consultation (Routine) - Pending Review Specialty Diagnoses / Procedures Referred By Contac t Referred To Contact Cardiology Diagnoses ST elevation myocardial infarction involving left anterior descending (LAD) coronary artery Yrn Ward MD [facility] [place] [address] Cardiac Rehab, [facility] [address] [place] [place] [address] Referral ID Status Reason Start Date Expiration Date Visits Requested Visits Authorized [id number] Pending Review Consult, Test & Treat 01/31/2025 36 36 Reason for Visit * Auth/Cert (Routine) Specialty Diagnoses / Procedures Referred By Contac t Referred To Contact Diagnoses STEMI (ST elevation myocardial infarction) STEMI Procedures ER IPI Vahe Marvin MD [facility] [place] [address] [facility] Referral ID Status Reason Start Date Expiration Date Visits Re quested Visits Authorized [id number] 1 1 Encounter Details Date Type Department Care Team (Latest Contact Info) Description 07/29/2024 11:45 AM EST - 08/04/2024 5:00 PM EST Hospital [place] [id number] Vahe Marvin MD [facility] [place] [address] Aubree Silverio MD [facility] [place] [address] Krystal Parker MD [facility] [place] [address] Bridgette Stauffer MD [facility] [place] [address] Yrn Ward MD [facility] [place] [address] Alex Small MD [facility] [place] [address] ST elevation myocardial infarction involving left anterior descending (LAD) coronary artery; HFrEF (heart failure with reduced ejection fraction) Discharge Disposition: Home Social History Tobacco Use Types Packs/Day Years Used Date Smoking Tobacco: Former Cigarettes Smokeless Tobacco: Never Alcohol Use Standard Drinks/Week Comments Not Currently 0 (1 standard drink = 0.6 oz pur e alcohol) [facility] Utilities Answer Date Recorded In [...] Korey Montoya Patient Age: 74 y.o. Language: Armenian Race: White Ethnicity: Not nor Admit date: [...] contact your inpatient physician through the [facility] Torpedo Worker . Issues afterhours and on weekends [...] Patient transferred via air ambulance to [facility] on 07/29 for LHC [...] Was transferred via air ambulance to [facility] for further management and [...] the next year. Access was via right MATERIAL SPECIALIST and this sitewas clean, dry and [...] for Chest pain. Replaces: nitroGLYcerin 400 mcg/spray [place], Non-Aerosol 0.4 mg Quantity: 90 tablet Refills: [...] Refills: 0 STOPPED Medications nitroGLYcerin 400 mcg/spray [place], Non-Aerosol Commonly known as: NITROLINGUAL Replaced by: [...] of one year. After this time, your build and release manager will determine if you need to [...] away. Stay on the phone. The emergency trip motor operator will tell you what to do. [...] appointments: During 8am-5pm Tuesday through Tuesday call [phone] to speak with a nurse in the cardiology clinic All other times call [phone] and ask to speak to the director of cardiology service line client support professional. Follow up Appointments: PCP Alexia Mtz, SMALL BUSINESS CONSULTANT [phone]. Please call to establish a follow up appointment within 1-2 weeks of discharge. Cardiology. Referral to heart failure has been sent. General Instructions None Future Appointments and Orders Future Orders Complete By Expires Referral to Cardiac Rehab [[id number] Custom] As directed Process Instructions: If no progress note charted, please enter Clinical details in comments. Scheduling Instructions: Questions: My question or request is: STEMI, PCI- cardiac rehab at [facility] Referral to Cardiology [REF12 Custom] [...] of one year. After this time, your build and release manager will determine if you need to [...] away. Stay on the phone. The emergency trip motor operator will tell you what to do. [...] appointments: During 8am-5pm Tuesday through Tuesday call [phone] to speak with a nurse in the cardiology clinic All other times call [phone] and ask to speak to the director of cardiology service line client support professional. Follow up Appointments: PCP Alexia Mtz, SMALL BUSINESS CONSULTANT [phone]. Please call to establish a follow up [...] Patient transferred via air ambulance to [facility] on 07/29 for LHC and LOW to LAD for 100% occlusion Social History: Pt lives with his in a 1 level home with 2 NAOMI. 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 He [...] Total time: 35 (tef) minutes Time IN/OUT: [id number] ZAIDA DUBOSE, PT Pager: [phone] Physical Therapy Inpatient Rehabilitation Department * Yrn Ward MD - 08/03/2024 10:38 AM EST CV HOSPITALIST 2 - [facility] DAILY PROGRESS NOTE Page [phone] to reach a provider 04/04 Admit Date: [...] Compared to the overnight study by the client support professional fellow the impella position is stable. 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 [facility] 07/29/24 Conclusions: * One vessel [...] Patient transferred via air ambulance to [facility] on 07/29 for LHC [...] to be determined OT: PCP Alexia Mtz, SMALL BUSINESS CONSULTANT [phone] * Zaida Dubose, PT - 08/02/2024 2:08 PM EST Physical Therapy Evaluation Patient profile: Korey Montoya is a 74 y.o. male w/ PMH of hypertension, HLD, and BPH who presents for chief concern of chest pain after being found to have ST elevations on EKG. Patient transferred via air ambulance to [facility] on 07/29 for LHC and LOW to LAD for 100% occlusion Social History: Pt lives with his in a 1 level home with 2 NAOMI. 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 He [...] Total time: 37 (eval) minutes Time IN/OUT: 4394-7308 ZAIDA DUBOSE PT Pager: [phone] Physical Therapy Inpatient Rehabilitation Department * Gagan [...] Patient transferred via air ambulance to [facility] on 07/29 for LHC [...] PCP: Alexia Mtz APRN PCP phone number: [phone] Date of Admission: 07/29/2024 ( Hospital Day 4 days ) Attending:Bridgette Stauffer MD ID: Korey Montoya is a 74 y.o. male w/ PMH of hypertension, HLD, and BPH on Hospital Day4 for chief concern of chest pain after being found to have ST elevations on EKG. Patient transferred via air ambulance to [facility] on 07/29 for LHC [...] 07/29/24 1621 PHART 7.48* 7.44 7.38 7.37 [id number] 29* 29* 34* 36 PO2ART 71* 109* 141* 71* TFR2DHC 20.6 19.4* 19.5* 20.4 VBG (Venous Blood Gas) Recent Labs 07/29/24 1401 PHVEN 7.30* PO2VEN 39 PSV0ELW 20.1* Mixed Venous Sat No results for input(s): V0HRGE4 in the last 168 hours. Objective: Vitals [...] 07/29/24 1621 PHART 7.48* 7.44 7.38 7.37 XOB3LSW 29* 29* 34* 36 PO2ART 71* 109* 141* 71* MWX6OBA 20.6 19.4* 19.5* 20.4 VBG (Venous Blood Gas) Recent Labs 07/29/24 1401 PHVEN 7.30* PO2VEN 39 RXK0NSB 20.1* Mixed Venous Sat No results for input(s): O6AUIR1 in the last 168 hours. Microbiology: Microbiology Results (Last 30 days) Procedure Component Value Units Date/Time Blood culture [[id number]] Collected: 07/29/241607 Lab Status: Preliminary result Specimen: Blood, Venous Updated: 08/01/241700 Blood Culture No growth at 72 hours Blood culture [[id number]] Collected: 07/29/241607 Lab Status: Preliminary result Specimen: Blood, Venous Updated: 08/01/241700 Blood Culture No growth at 72 hours Imaging: Results for orders placed or performed during the hospital encounter of 07/29/24 XR Chest One View (Exam End: 07/29/2024 2:30 PM) Result Value WORKSTATION ID [id number] Impression 1. No pulmonary edema. 2. No pleural effusion. 3. No pneumothorax. Thank you for letting us participate in the care of this patient. If you are a health care provider and have any questions regarding this report, please contact the number below. For patients who have questions please contact the health critical care technician that requested your imaging first. ( [...] Compared to the overnight study by the client support professional fellow the impella position is stable. The [...] Patient transferred via air ambulance to [facility] on 07/29 for LHC [...] today). Transfer to floor. Krystal Parker MD, [facility], [facility] Staff Supervisor Extruding Department kindergarten classroom teacher * Gagan Catherine MD - 08/01/2024 11:12 [...] Patient transferred via air ambulance to [facility] on 07/29 for LHC [...] PCP: Alexia Mtz APRN PCP phone number: [phone] Date of Admission: 07/29/2024 ( Hospital Day 3 days ) Attending:Krystal Parker MD ID: Korey Montoya is a 74 y.o. male w/ PMH of hypertension, HLD, and BPH on Hospital Day3 for chief concern of chest pain after being found to have ST elevations on EKG. Patient transferred via air ambulance to [facility] on 07/29 for LHC [...] 07/29/24 1621 PHART 7.48* 7.44 7.38 7.37 JMN2ZGK 29* 29* 34* 36 PO2ART 71* 109* 141* 71* FEB9EDH 20.6 19.4* 19.5* 20.4 VBG (Venous Blood Gas) Recent Labs 07/29/24 1401 PHVEN 7.30* PO2VEN 39 UJQ5PRQ 20.1* Mixed Venous Sat No results for input(s): W1WBGD2 in the last 168 hours. PA Catheter [...] 07/29/24 1621 PHART 7.48* 7.44 7.38 7.37 QBZ5MRP 29* 29* 34* 36 PO2ART 71* 109* 141* 71* KNB4GHA 20.6 19.4* 19.5* 20.4 VBG (Venous Blood Gas) Recent Labs 07/29/24 1401 PHVEN 7.30* PO2VEN 39 APP5KSS 20.1* Mixed Venous Sat No results for input(s): S7XNPB2 in the last 168 hours. Microbiology: Microbiology Results (Last 30 days) Procedure Component Value Units Date/Time Blood culture [[id number]] Collected: 07/29/241607 Lab Status: Preliminary result Specimen: Blood, Venous Updated: 07/31/24 170 Blood Culture No growth at 48 hours Blood culture [[id number]] Collected: 07/29/241607 Lab Status: Preliminary result Specimen: Blood, Venous Updated: 07/31/24 170 Blood Culture No growth at 48 hours Imaging: Results for orders placed or performed during the hospital encounter of 07/29/24 XR Chest One View (Exam End: 07/29/2024 2:30 PM) Result Value WORKSTATION ID [id number] Impression 1. No pulmonary edema. 2. No pleural effusion. 3. No pneumothorax. Thank you for letting us participate in the care of this patient. If you are a health care provider and have any questions regarding this report, please contact the number below. For patients who have questions please contact the health critical care technician that requested your imaging first. ( [...] Compared to the overnight study by the client support professional fellow the impella position is stable. The [...] Patient transferred via air ambulance to [facility] on 07/29 for LHC [...] him; questions answered. Krystal Parker MD, FAC, [facility] Staff Supervisor Extruding Department kindergarten classroom teacher * Krystal Parker MD - 07/31/2024 1:06 [...] Patient transferred via air ambulance to [facility] on 07/29 for LHC [...] PCP: Alexia Mtz APRN PCP phone number: [phone] Date of Admission: 07/29/2024 ( Hospital Day 2 days ) Attending:Krystal Parker MD ID: Korey Montoya is a 74 y.o. male w/ PMH of hypertension, HLD, and BPH on Hospital Day2 for chief concern of chest pain after being found to have ST elevations on EKG. Patient transferred via air ambulance to [facility] on 07/29 for LHC [...] 0057 07/29/24 1621 PHART 7.44 7.38 7.37 VRX1OQS 29* 34* 36 PO2ART 109* 141* 71* PWF1ANK 19.4* 19.5* 20.4 VBG (Venous Blood Gas) Recent Labs 07/29/24 1401 PHVEN 7.30* PO2VEN 39 WDI2MVJ 20.1* Mixed Venous Sat No results for input(s): T0EKGA9 in the last 168 hours. PA Catheter [...] 0057 07/29/24 1621 PHART 7.44 7.38 7.37 XJX0AES 29* 34* 36 PO2ART 109* 141* 71* OOP4MIJ 19.4* 19.5* 20.4 VBG (Venous Blood Gas) Recent Labs 07/29/24 1401 PHVEN 7.30* PO2VEN 39 SBM8XDW 20.1* Mixed Venous Sat No results for input(s): W1TNRS0 in the last 168 hours. Microbiology: Microbiology Results (Last 30 days) Procedure Component Value Units Date/Time Blood culture [[id number]] Collected: 07/29/241607 Lab Status: Preliminary result Specimen: Blood, Venous Updated: 07/30/241700 Blood Culture No Growth at 18-24 hrs. Blood culture [[id number]] Collected: 07/29/241607 Lab Status: Preliminary result Specimen: Blood, Venous Updated: 07/30/241700 Blood Culture No Growth at 18-24 hrs. Imaging: Results for orders placed or performed during the hospital encounter of 07/29/24 XR Chest One View (Exam End: 07/29/2024 2:30 PM) Result Value WORKSTATION ID [id number] Impression 1. No pulmonary edema. 2. No pleural effusion. 3. No pneumothorax. Thank you for letting us participate in the care of this patient. If you are a health care provider and have any questions regarding this report, please contact the number below. For patients who have questions please contact the health critical care technician that requested your imaging first. ( [...] Compared to the overnight study by the client support professional fellow the impella position is stable. The [...] Patient transferred via air ambulance to [facility] on 07/29 for LHC [...] work to optimize volume status while continuing yseddor-qepnan-ieutiqwhnp therapies at this time. Obtain comprehensive TTE. [...] Patient transferred via air ambulance to [facility] on 07/29 for LHC [...] PCP: Yoel Artis APRN PCP phone number: [phone] Date of Admission: 07/29/2024 ( Hospital Day 1 day ) Attending:Aubree Silverio MD ID: Korey Montoya is a 74 y.o. male w/ PMH of hypertension, HLD, and BPH on Hospital Day1 for chief concern of chest pain after being found to have ST elevations on EKG. Patient transferred via air ambulance to [facility] on 07/29 for LHC [...] 0057 07/29/24 1621 PHART 7.44 7.38 7.37 FSK9KXN 29* 34* 36 PO2ART 109* 141* 71* FHA3XIX 19.4* 19.5* 20.4 VBG (Venous Blood Gas) Recent Labs 07/29/24 1401 PHVEN 7.30* PO2VEN 39 DKF0YMH 20.1* Lactate ( Last 12 hours) 1.3 >> 1.2 Mixed Venous Sat No results for input(s): F7OWMY4 in the last 168 hours. PA Catheter [...] 0057 07/29/24 1621 PHART 7.44 7.38 7.37 HAT7HMV 29* 34* 36 PO2ART 109* 141* 71* GAE2JSX 19.4* 19.5* 20.4 VBG (Venous Blood Gas) Recent Labs 07/29/24 1401 PHVEN 7.30* PO2VEN 39 HFZ8JZS 20.1* Mixed Venous Sat No results for input(s): U5XHXZ5 in the last 168 hours. Microbiology: Microbiology Results (Last 30 days) Procedure Component Value Units Date/Time Blood culture [[id number]] Collected: 07/29/24 160 Lab Status: In process Specimen: Blood, Venous Updated: 07/29/24 162 Blood culture [[id number]] Collected: 07/29/241607 Lab Status: In process Specimen: Blood, Venous Updated: 07/29/24 161 Imaging: Results for orders placed or performed during the hospital encounter of 07/29/24 XR Chest One View (Exam End: 07/29/2024 2:30 PM) Result Value WORKSTATION ID [id number] Impression 1. No pulmonary edema. 2. No pleural effusion. 3. No pneumothorax. Thank you for letting us participate in the care of this patient. If you are a health care provider and have any questions regarding this report, please contact the number below. For patients who have questions please contact the health critical care technician that requested your imaging first. Medications [...] Patient transferred via air ambulance to [facility] on 07/29 for LHC [...] Internal Medicine, PGY-1 Cardiology, [facility] 07/30/24 10:41 AM documented in this encounter [...] Patient transferred via air ambulance to [facility] on 07/29 for LHC [...] Was transferred via air ambulance to [facility] for further management and [facility] demo nstrated 100% occlusion. No significant [...] mouth. Past Week nitroGLYcerin (NITROLINGUAL) 400 mcg/spray [place], Non-Aerosol 1 spray to anus for proctalgia [...] 3.5 guiding catheter and a 3.5 Fr False Pass Eye Sycuan ST 20 Mhz using Manual pullback. Imaging [...] A premounted 3.00 x 22 mm Jeison [place] (LOW) was deployed with a maximum inflation [...] A premounted 3.00 x 08 mm [place] (LOW) was deployed with a maximum inflation [...] a limited study performed by a fellow client support professional to evaluate for cardiogenic shock with impella [...] Compared to the overnight study by the client support professional fellow the impella position is stable. The [...] Patient transferred via air ambulance to [facility] on 07/29 for LHC [...] PCP: Yoel Artis APRN PCP phone number: [phone] Date of Admission: 07/29/2024 ( Hospital Day 0 days ) Attending:Aubree Silverio MD ID: Korey Montoya is a 74 y.o. male w/ PMH of hypertension, HLD, and BPH who presents for chief concern of chest pain after being found to have ST elevations on EKG. Patient transferred via air ambulance to [facility] on 07/29 for LHC and LOW to LAD for 100% occlusion. HPI: Korey Montoya is a 74 y.o. male w/ PMH of hypertension, HLD, and BPH who presents for chief concern of chest pain after being found to have ST elevations on EKG. Patient transferred via air ambulance to [facility] on 07/29 for LHC [...] Was transferred via air ambulance to [facility] for further management and [...] Blood Gas) No results for input(s): PHART, JMX8BUS, PO2ART, EMW1BRX, LACTATEVEN, XGZ4ZIV, PFRATIOART2 in the last 168 hours. VBG (Venous Blood Gas) Recent Labs 07/29/24 1401 PHVEN 7.30* PO2VEN 39 ODV8RUH 20.1* Mixed Venous Sat No results for input(s): T0YYAA0 in the last 168 hours. PA Catheter [...] Blood Gas) No results for input(s): PHART, YMS4JPE, PO2ART, YRY8NST, LACTATEVEN, GBG2QJQ, PFRATIOART2 in the last 168 hours. VBG (Venous Blood Gas) Recent Labs 07/29/24 1401 PHVEN 7.30* PO2VEN 39 RPU7VMQ 20.1* Mixed Venous Sat No results for input(s): T5MZSL0 in the last 168 hours. Microbiology: Microbiology [...] Patient transferred via air ambulance to [facility] on 07/29 for [facility]. Found to have 100% occlusion of [...] MD, FACP, FACC Section of Cardiovascular Medicine [facility] Traveling Clerkglass products inspector [facility] [employer] [facility] [...] to the planned procedure. Hand Hygiene: The postal clerk did perform hand hygiene prior to [...] ease. Good wave form. Ivan Hernandez MD Bag Shaker Associated attestation - Rolando Yeh MD - [...] in an outpatient cardiac rehabilitation program at [facility] was discussed. Patient agrees to [...] of Discharge: 08/04/2024 Gaby Wong RN, CM [phone] * Initial Assessments - Char Meza OT - 08/03/2024 10:00 AM EST Occupational Therapy Evaluation Patient profile: Korey Montoya is a 74 y.o. male admitted on 07/29/2024 w/ PMH of hypertension, HLD, and BPH who presents for chief concern of chest pain after being found to have ST elevations onEKG. Patient transferred via air ambulance to [facility] on 07/29 for LHC [...] evaluation only Total Minutes, Occupational Therapy: 14 ([id number] (evaluation)) 2017 OT Evaluation Code Rationale: Diagnosis [...] and measurable assessment of functional outcome. Pager: [phone] Char Meza OT 08/03/2024 Occupational Therapy Rehabilitation [...] (Interventions Implemented as Appropriate) Flowsheets (Taken 08/01/2024 4409) Outcome Summary: A+O, no pain. NSR. MAP [...] Procedure Note: Patient Name: Korey Montoya : [id number] MR#: [id number] Case Date: 07/31/2024 Torpedo Worker: Surgeons and Role: * Maldonado Luis MD - Primary * Quinten Charles PA - Physician Junior Network Engineer Preoperative diagnosis: shock, impella Postoperative diagnosis: * same * Procedure(s) performed: Impella removal form right MATERIAL SPECIALIST Access: Right MATERIAL SPECIALIST A time-out was conducted prior to [...] receiving care in [place] must abide by [place] law. The hierarchy [...] (i) The agent with financial power of transactional attorney or a conservator appointed in accordance [...] In the past 12 months has the [employer], [employer], or water [employer] threatened to shut off services in your [...] Mailing Address: [address] [place] [address] Physical Address: [address] [place], [place] Social & Family Supports: All [...] points: Addiction likely Health/Prescription Coverage: Primary Insurance: [facility] [employer] MEDICARE Payor: [facility] MEDICARE / Plan: AARP RPPO MANAGED MEDICARE COMPLETE / Product Type: *No Product type* / Secondary Insurance: N/A ; Prescription Coverage: Yes Preferred Pharmacy: [address] [address] [place] Status: Patient is a : No Primary Care Provider confirmed: Alexia Mtz, SMALL BUSINESS CONSULTANT [phone] Patient/Caregiver Goals of Treatment: return home Potential [...] 07/29/2024 6:25 PM EST Pt arrived from experimental machining lab manager @ 1400. CXR and EKG completed. Impella [...] Procedure Note: Patient Name: Korey Montoya : [id number] MR#: [id number] Case Date: 07/29/2024 Torpedo Worker: Surgeons and Role: * Vahe Marvin MD - Primary * Susannah Watts PA - Physician Junior Network Engineer Preoperative diagnosis: STEMI Postoperative diagnosis: * STEMI, LAD Artery * * Cardiogenic Shock * Procedure(s) performed: [facility] Coronary angiogram Stent insertion coronary IVUS coronary Venous line insert RH [place] Colette Catheter Vascular closure device Ventricular assist [...] x 22 mm to 14 deonna JE[place] with LIZ 3 flow. Residual distal disease at distal stent, overlapping distal stent was inserted with 3.0 x 8 mm JE[place]. Systolic's in the 80's sustained. Patient re [...] 9:30 AM EST Appointment Non[place] [address] Mushtaq Murphy APRN 10/31/2024 11:00 AM EST Office Visit Cardiology at [address] [address] Mushtaq Murphy, FREDRICK Scheduled Orders [...] 0.40 x10(3)/mc L 08/04/2024 6:39 AM EST [facility] Basophil % 0.4 % 08/04/2024 [...] HEMATOLOGY ORDERABLE S [facility] [place] [address] * Magnesium (08/04/2024 6:08 AM EST) Pathologist [facility] Magnesium 0.85 0.69 - 1.07 mMol/L 08/04/2024 7:07 AM [facility] Blood VENOUS BLOOD SPECIMEN / Unknown Venipuncture / Unknown 08/04/2024 6:08 AM EST 08/04/2024 6:19 AM EST Bridgette Stauffer MD CHEMISTRY ORDERABLES [facility] [place] [address] * Basic Metabolic Panel (08/04/2024 6:08 AM [...] MD CHEMISTRY ORDERABLES [facility] [place] [id number] * (ABNORMAL) CBC (with Diff) (08/03/2024 5:16 [...] HEMATOLOGY ORDERABLE S [facility] [place] [address] * Magnesium (08/03/2024 5:16 AM EST) Pathologist [facility] Magnesium 0.89 0.69 - 1.07 mMol/L 08/03/2024 5:56 AM [facility] Blood VENOUS BLOOD SPECIMEN / Unknown Venipuncture / Unknown 08/03/2024 5:16 AM EST 08/03/2024 5:23 AM EST Bridgette Stauffer MD CHEMISTRY ORDERABLES [facility] [place] [address] * (ABNORMAL) Basic Metabolic Panel (08/03/2024 5:16 AM EST) Pathologist [facility] Glucose 98 65 - 199 mg/dL 08/03/2024 5:56 AM [facility] Comment:Glucose Concentratio n >=200 mg/dL plus symptoms is consistent with Diabetes Mellitus. Blood Urea Nitrogen 16 10 - 20 mg/dL 08/03/2024 5:56 AM [facility] Creatinine 0.85 0.80 - 1.50 mg/dL 08/03/2024 5:56 AM [facility] Sodium 137 135 - 145 mMol/L 08/03/2024 5:56 AM [facility] Potassium 4.5 3.5 - 5.0 mMol/L 08/03/2024 5:56 AM [facility] Chloride 106 98 - 107 mMol/L 08/03/2024 5:56 AM [facility] Carbon Dioxide 21(L) 22 - 31 mMol/L 08/03/2024 5:56 AM [facility] Anion Gap 10 5 - 15 mMol/L 08/03/2024 5:56 AM [facility] Calcium 8.3(L) 8.5 - 10.5 mg/dL 08/03/2024 5:56 AM [facility] Est Glomerular Filtration Rate - Male 92 mL/min/1. 73 m?? 08/03/2024 5:56 AM EST [facility] Comment: [...] CHEMISTRY ORDERABLES Performing Organization Address [facility]/ZIP Co de Phone Number [facility] [place] [address] * POC, GLUCOSE (08/02/2024 7:47 AM EST) Glucometer, POC 89 65 - 199 mg/dL 08/02/2024 7:47 AM EST [facility] Comment:Supplemental ranges: <140 mg/dL before meals <180 mg/dL all other times of the day. Blood CAPILLARY BLOOD / Unknown 08/02/2024 7:47 AM EST 08/02/2024 7:47 AM EST Krystal Parker MD POINT OF CARE TEST O RDERABLES [facility] [place] [address] * (ABNORMAL) CBC (with Diff) (08/02/2024 4:20 AM EST) White Blood Cell 8.51 4.00 - 9.50 x10(3)/mc L 08/02/2024 4:50 AM EST [facility] Red Blood Cell 4.41(L) 4.58 - 5.54 x10(6)/mc L 08/02/2024 4:50 AM [facility] Hemoglobin 12.2(L) 13.7 - 16.5 g/dL 08/02/2024 4:50 AM [facility] Hematocrit 35.8(L) 40.5 - [...] HEMATOLOGY ORDERABLE S [facility] [place] [address] * Magnesium (08/02/2024 4:20 AM EST) Magnesium 0.79 0.69 - 1.07 mMol/L 08/02/2024 5:06 AM [facility] Blood VENOUS BLOOD SPECIMEN / Unknown Venipuncture / Unknown 08/02/2024 4:20 AM EST 08/02/2024 4:37 AM EST Bridgette Stauffer MD CHEMISTRY ORDERABLES [facility] [place] [address] * (ABNORMAL) Basic Metabolic Panel (08/02/2024 4:20 [...] CHEMISTRY ORDERABLES Performing Organization Address [facility]/ZIP Co de Phone Number [facility] [place] [address] * Potassium (08/01/2024 8:39 PM EST) [facility] Potassium 4.0 3.5 - 5.0 mMol/L 08/01/2024 9:21 PM EST [facility] Blood VENOUS BLOOD SPECIMEN / Unknown Venipuncture / Unknown 08/01/2024 8:39 PM EST 08/01/2024 8:51 PM EST Aubree Silverio MD CHEMISTRY ORDERABL ES Performing Organization Address [facility] Co de Phone Number [facility] [place] [address] * POC, GLUCOSE (08/01/2024 8:35 PM EST) Glucometer, POC 112 65 - 199 mg/dL 08/01/2024 8:36 PM EST [facility] Comment:Supplemental ranges: <140 mg/dL before meals <180 mg/dL all other times of the day. Blood CAPILLARY BLOOD / Unknown 08/01/2024 8:35 PM EST 08/01/2024 8:36 PM EST Krystal Parker MD POINT OF CARE TEST O RDERABLES Performing Organization Address [facility] Co de Phone Number [facility] [place] [address] * POC, GLUCOSE (08/01/2024 4:55 PM EST) [...] Organization Address City/[facility] Co de Phone Number [facility] [place] [address] * POC, GLUCOSE (08/01/2024 12:42 PM EST) Glucometer, POC 130 65 - 199 mg/dL 08/01/2024 12:43 PM EST [facility] Comment:Supplemental ranges: <140 mg/dL before meals <180 mg/dL all other times of the day. Blood CAPILLARY BLOOD / Unknown 08/01/2024 12:42 PM EST 08/01/2024 12:43 PM EST Krystal Parker MD POINT OF CARE TEST O JOSH Performing Organization Address [facility] Co de Phone Number [facility] [place] [address] * (ABNORMAL) Cooximetry, POC (08/01/2024 10:45 AM EST) pO2, Coox 32 mmHg 08/01/2024 10:48 AM EST [facility] Hemoglobin, Coox 12.9(L) 13.7 - 16.5 g/dL 08/01/2024 10:48 AM EST [facility] Oxyhemoglobin, Coox 66.7 % 08/01/2024 10:48 AM EST [facility] Carboxyhemoglo bin, Coox 1.1 % 08/01/2024 10:48 AM EST [facility] Comment: Nonsmokers: 0.5-1.5% COHB ?? Smokers: Variable ??but usually less than 10% ?? Toxic: 20-30% COHB ?? Lethal: Greater than 60% COHB Methemoglobin, Coox 0.3 <=1.5 % 08/01/2024 10:48 AM EST [facility] Blood (Mixed Venous) 08/01/2024 10:45 AM EST 08/01/2024 10:48 AM EST Krystal Parker MD POINT OF CARE TEST O JOSH Performing Organization Address [facility] Co de Phone Number [facility] [place] [address] * Potassium (08/01/2024 8:20 AM EST) Pathologist [facility] Potassium 4.0 3.5 - 5.0 mMol/L 08/01/2024 10:17 AM EST [facility] Blood ARTERIAL BLOOD / Unknown Venipuncture / Unknown 08/01/2024 8:20 AM EST 08/01/2024 8:30 AM EST Aubree Silverio MD CHEMISTRY ORDERABL ES Performing Organization Address [facility] de Phone Number [facility] [place] [address] * POC, GLUCOSE (08/01/2024 7:44 AM EST) Glucometer, POC 86 65 - 199 mg/dL 08/01/2024 7:44 AM EST [facility] Comment:Supplemental ranges: <140 mg/dL before meals <180 mg/dL all other times of the day. Blood CAPILLARY BLOOD / Unknown 08/01/2024 7:44 AM EST 08/01/2024 7:44 AM EST Krystal Parker MD POINT OF CARE TEST O RDERASHAY Performing Organization Address [facility] Co de Phone Number [facility] [place] [address] * (ABNORMAL) CBC (with Diff) (08/01/2024 4:18 AM EST) White Blood Cell 8.51 4.00 - 9.50 x10(3)/mc L 08/01/2024 4:53 AM [facility] Red Blood Cell 4.12(L) [...] HEMATOLOGY ORDERABLE S [facility] [place] [address] * Magnesium (08/01/2024 4:18 AM EST) Magnesium 0.74 0.69 - 1.07 mMol/L 08/01/2024 5:00 AM [facility] Blood VENOUS BLOOD SPECIMEN / Unknown Venipuncture / Unknown 08/01/2024 4:18 AM EST 08/01/2024 4:29 AM EST Bridgette Stauffer MD CHEMISTRY ORDERABLES [facility] [place] [address] * (ABNORMAL) Basic Metabolic Panel (08/01/2024 4:18 [...] CHEMISTRY ORDERABLES Performing Organization Address [facility] Co de Phone Number [facility] [place] [address] * POC, GLUCOSE (07/31/2024 8:41 PM EST) [...] O RDERABLES Performing Organization Address [facility] Co de Phone Number [facility] [place] [address] * CARDIAC CATHETERIZATION (07/31/2024 5:53 PM EST) Anatomical Region Laterality Modality Other Narrative 08/01/2024 12:37 PM EST ?[facility] ? Cardiac Catheterization/Intervention Report ? Patient Name: Korey Montoya. ? Procedure Date: 07/31/2024 ? A #: [id number] ? Primary Physician: Janelle, Maldonado T ? Case #: [id number] ? File Name: [id number] ? Catheterization Order Number: [id number] ? [facility] ? Final Report [place], [place] ? Patient Name: ? Korey P. Montoya ?ID#: ?[id number] ? : ?1950 ? Procedure Date: ? [...] ? Comments: ?Impella removed from the right MATERIAL SPECIALIST with deployment of Perclose and ?Angioseal. [...] Procedure Note Maldonado Luis MD - 08/01/2024 [facility] Cardiac Catheterization/Intervention Report Patient Name: Korey Montoya Procedure Date: 07/31/2024 A #: [id number] Primary Physician: Maldonado Luis Case #: [id number] File Name: [id number] Catheterization Order Number: [id number] [facility] FinalReport [place], [place] Patient Name: Korey Montoya ID#:[id number] :1950 Procedure Date: July 31, 2024 Case [...] ASA Class IV. The [facility] clinical frailtyscale is 4: Vulnerable. [...] procedures. Comments: Impella removed from the right MATERIAL SPECIALIST with deployment of Perclose and Angioseal. [...] * POC, GLUCOSE (07/31/2024 11:04 AM EST) [facility] Glucometer, POC 82 65 - 199 mg/dL 07/31/2024 11:04 AM EST [facility] Comment:Supplemental ranges: <140 mg/dL before meals <180 mg/dL all other times of the day. Blood CAPILLARY BLOOD / Unknown 07/31/2024 11:04 AM EST 07/31/2024 11:04 AM EST Krystal Parker MD POINT OF CARE TEST O RDERABLES [facility] [place] [address] * (ABNORMAL) Blood Gas, Arterial POC (07/31/2024 8:29 AM EST) Pathologist [facility] pH, Arterial 7.48(H) 7.35 - 7.45 07/31/2024 8:30 AM EST [facility] PCO2, Arterial 29(L) 35 - 45 mmHg 07/31/2024 8:30 AM EST [facility] PO2, Arterial 71(L) 85 - 104 mmHg 07/31/2024 8:30 AM [facility] Bicarbonate, Arterial 20.6 20.0 - 26.0 mmol/L 07/31/2024 8:30 AM [facility] Base Excess, Arterial -3.0 [...] - 199 mg/dL 07/31/2024 8:30 AM EST [facility] Comment:Glucose Concentratio n >=200 mg/dL plus symptoms is consistent with Diabetes Mellitus. Blood ARTERIAL BLOOD / Unknown 07/31/2024 8:29 AM EST 07/31/2024 8:30 AM EST Krystal Parker MD POINT OF CARE TEST O JOSH Performing Organization Address City/[facility] Co de Phone Number [facility] [place] [address] * POC, GLUCOSE (07/31/2024 7:47 AM EST) [facility] Signature Glucometer, POC 82 65 - 199 mg/dL 07/31/2024 7:53 AM EST [facility] Comment:Supplemental ranges: <140 mg/dL before meals <180 mg/dL all other times of the day. Blood CAPILLARY BLOOD / Unknown 07/31/2024 7:47 AM EST 07/31/2024 7:53 AM EST Krystal Parker MD POINT OF CARE TEST O JOSH Performing Organization Address [facility] Co de Phone Number [facility] [place] [address] * (ABNORMAL) CBC (with Diff) (07/31/2024 1:08 AM EST) White Blood Cell 10.25(H) 4.00 - 9.50 x10(3)/mc L 07/31/2024 1:28 AM EST [facility] Red Blood Cell 4.13(L) 4.58 - 5.54 x10(6)/mc L 07/31/2024 1:28 AM EST [facility] Hemoglobin 11.2(L) 13.7 - 16.5 g/dL 07/31/2024 1:28 AM EST [facility] Hematocrit 33.9(L) 40.5 - 48.5 [...] 0.90 x10(3)/mc L 07/31/2024 1:28 AM EST [facility] Eos % 0.1 % 07/31/2024 1:28 AM [facility] Eos Absolute <0.04 0.00 - 0.40 x10(3)/mc L 07/31/2024 1:28 AM EST [facility] Basophil % 0.3 % 07/31/2024 1:28 AM [facility] Baso Absolute <0.04 0.00 - 0.10 x10(3)/mc L 07/31/2024 1:28 AM [facility] Immature Gran % 0.2 % 1:28 AM [facility] Immature Gran Absolute <0.04 0.00 - 0.04 x10(3)/mc L 07/31/2024 1:28 AM [facility] Blood VENOUS BLOOD SPECIMEN / Unknown Venipuncture / Unknown 07/31/2024 1:08 AM EST 07/31/2024 1:18 AM EST Bridgette Stauffer MD HEMATOLOGY ORDERABLE S [facility] [place] [address] * Magnesium (07/31/2024 1:08 AM EST) Magnesium 0.89 0.69 - 1.07 mMol/L 07/31/2024 1:46 AM EST [facility] Blood VENOUS BLOOD SPECIMEN / Unknown Venipuncture / Unknown 07/31/2024 1:08 AM EST 07/31/2024 1:18 AM EST Bridgette Stauffer MD CHEMISTRY ORDERABLES [facility] [place] [address] * (ABNORMAL) Basic Metabolic Panel (07/31/2024 1:08 AM EST) Glucose 97 65 - 199 mg/dL 07/31/2024 1:46 AM [facility] Comment:Glucose Concentratio n >=200 mg/dL plus symptoms is consistent with Diabetes Mellitus. Blood Urea Nitrogen 11 10 - 20 mg/dL 07/31/2024 1:46 AM [facility] Creatinine 0.96 0.80 - 1.50 mg/dL 07/31/2024 1:46 AM [facility] Sodium 140 135 - 145 mMol/L 07/31/2024 1:46 AM [facility] Potassium 4.1 3.5 - 5.0 mMol/L 07/31/2024 1:46 AM [facility] Chloride 110(H) 98 - [...] CHEMISTRY ORDERABLES Performing Organization Address [facility] Co de Phone Number [facility] [place] [address] * (ABNORMAL) Hepatic Function Panel (07/31/2024 1:08 [...] Organization Address City/[facility]/ZIP Co de Phone Number [facility] [place] [address] * POC, GLUCOSE (07/30/2024 8:03 PM EST) [...] Organization Address City/[facility]/ZIP Co de Phone Number [facility] [place] [address] * Potassium (07/30/2024 8:03 PM EST) Potassium 3.8 3.5 - 5.0 mMol/L 07/30/2024 9:13 PM EST [facility] Blood VENOUS BLOOD SPECIMEN / Unknown Venipuncture / Unknown 07/30/2024 8:03 PM EST 07/30/2024 8:22 PM EST Aubree Silverio MD CHEMISTRY ORDERABL ES Performing Organization Address [facility] Co de Phone Number [facility] [place] [address] * POC, GLUCOSE (07/30/2024 6:23 PM EST) [...] Organization Address City/[facility]/ZIP Co de Phone Number [facility] [place] [address] * POC, GLUCOSE (07/30/2024 5:08 PM EST) Glucometer, POC 78 65 - 199 mg/dL 07/30/2024 5:08 PM EST [facility] Comment:Supplemental ranges: <140 mg/dL before meals <180 mg/dL all other times of the day. Blood CAPILLARY BLOOD / Unknown 07/30/2024 5:08 PM EST 07/30/2024 5:08 PM EST Krystal Parker MD POINT OF CARE TEST O RDERABLES Performing Organization Address [facility] Co de Phone Number [facility] [place] [address] * (ABNORMAL) Phosphorus (07/30/2024 3:08 PM EST) Phosphorus 2.1(L) 2.5 - 4.5 mg/dL 07/30/2024 3:58 PM EST [facility] Blood VENOUS BLOOD SPECIMEN / Unknown Venipuncture / Unknown 07/30/2024 3:08 PM EST 07/30/2024 3:12 PM EST Aubree Silverio MD CHEMISTRY ORDERABL ES Performing Organization Address [facility] Co de Phone Number [facility] [place] [address] * Magnesium (07/30/2024 3:08 PM EST) Magnesium 0.90 0.69 - 1.07 mMol/L 07/30/2024 3:58 PM EST [facility] Blood VENOUS BLOOD SPECIMEN / Unknown Venipuncture / Unknown 07/30/2024 3:08 PM EST 07/30/2024 3:12 PM EST Aubree Silverio MD CHEMISTRY ORDERABL ES Performing Organization Address [facility] Co de Phone Number [facility] [place] [address] * (ABNORMAL) Basic Metabolic Panel (07/30/2024 3:08 PM EST) Glucose 105 65 - 199 mg/dL 07/30/2024 4:17 PM EST [facility] Comment:Glucose Concentratio n >=200 mg/dL plus symptoms is consistent with Diabetes Mellitus. Blood Urea Nitrogen 13 10 - 20 mg/dL 07/30/2024 4:17 PM EST [facility] Creatinine 1.01 0.80 - 1.50 mg/dL 07/30/2024 4:17 PM EST [facility] Sodium 141 135 - 145 mMol/L 07/30/2024 4:17 PM [facility] Potassium 3.4(L) 3.5 - 5.0 mMol/L 07/30/2024 4:17 PM EST [facility] Chloride 109(H) 98 - 107 mMol/L 07/30/2024 4:17 PM [facility] Carbon Dioxide 21(L) 22 - 31 mMol/L 07/30/2024 4:17 PM [facility] Anion Gap 11 5 - 15 mMol/L 07/30/2024 4:17 PM [facility] Calcium 7.9(L) 8.5 - 10.5 mg/dL 07/30/2024 4:17 PM EST [facility] Est Glomerular [...] CHEMISTRY ORDERABL ES [facility] [place] [address] * ECHO LMTD W CONTRAST W LMTD SPEC DOPP COLOR DOPP (07/30/2024 11:42 AM EST) Anatomical Region Laterality Modality Cardiac Other 07/30/2024 10:2 2 AM EST Narrative 07/30/2024 12:34 PM EST [address] [place] [id number] ? Echocardiogram Report Name: KOREY MONTOYA ? Study Date: 07/30/2024 10:22 AMBP: 124/66 mmHg : 1950 ? Height: 168 cm ? Account: [id number] Age: 74 yrs ? Weight: 65 kg Gender: Male ?BSA: 1.7 m2 Ordering Physician: Aubree Silverio MD Referring Physician: CHAPARRO FERRERA Performed By: OMERO Millan Reason For Study: ST elevation myocardial infarction involving left anterior descending (LAD) coronary artery Interpreting Fellow: Ivan Hernandez. Exam Location: [facility]. Interpretation Summary Left ventricle is [...] Compared to the overnight study by the client support professional fellow the impella position is stable. 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 Procedure Limited - 24008. Image enhancement Definity was used for both [...] Note Kathleen Banda MD - 07/30/2024 [address] [place] [address] Echocardiogram Report Name: KOREY MONTOYA Study Date: 410:22 AMBP: 124/66 mmHg : 1950 Height: 168 cm Account: [id number] Age: 74 yrs Weight: 65 kg Gender: Male BSA: 1.7 m2 Ordering Physician: Aubree Silverio MD Referring Physician: CHAPARRO FERRERA Performed By: OMERO Millan Reason For Study: ST elevation myocardial infarction involving leftanterior descending (LAD) coronary artery Interpreting Fellow: Ivan Hernandez. Exam Location: [facility]. Interpretation Summary Left ventricle is [...] Compared to the overnight study by the client support professional fellow the impella positionis stable. The global left ventricular systolic function has improvedpredominantly via recruitment outside the LAD territory which remains akinetic. Procedure Limited - 90882. Image enhancement Definity was used for both [...] POC, GLUCOSE (07/30/2024 11:17 AM EST) Pathologist [facility] Glucometer, POC 97 65 - 199 mg/dL 07/30/2024 11:17 AM EST [facility] Comment:Supplemental ranges: <140 mg/dL before meals <180 mg/dL all other times of the day. Blood CAPILLARY BLOOD / Unknown 07/30/2024 11:17 AM EST 07/30/2024 11:17 AM EST Aubree Silverio MD POINT OF CARE TEST ORDERABLES [facility] [place] [address] * (ABNORMAL) Blood Gas, Arterial POC (07/30/2024 8:16 AM EST) pH, Arterial 7.44 7.35 - 7.45 07/30/2024 8:17 AM EST [facility] PCO2, Arterial 29(L) 35 - 45 mmHg 07/30/2024 8:17 AM [facility] PO2, Arterial 109(H) 85 - 104 mmHg 07/30/2024 8:17 AM [facility] Bicarbonate, Arterial 19.4(L) 20.0 [...] - 1.33 mmol/L 07/30/2024 8:17 AM EST [facility] Blood ARTERIAL BLOOD / Unknown 07/30/2024 8:16 AM EST 07/30/2024 8:17 AM EST Aubree Silverio MD POINT OF CARE TEST ORDERABLES [facility] [place] [address] * (ABNORMAL) Troponin - Single (07/30/2024 8:09 [...] [facility] Test Catalog Troponin - [email or web address] Reference: Fourth [place] Definition of Myocardial Infarction. Journal of the [place] [employer] 2018;72:8539-8584 Blood VENOUS BLOOD SPECIMEN / Unknown Venipuncture / Unknown 07/30/2024 8:09 AM EST 07/30/2024 8:26 AM EST Aubree Silverio MD CHEMISTRY ORDERABL ES Performing Organization Address City/[facility]/ZIP Co de Phone Number [facility] [place] [address] * POC, GLUCOSE (07/30/2024 7:40 AM EST) [facility] Glucometer, POC 111 65 - 199 mg/dL 07/30/2024 7:40 AM EST [facility] Comment:Supplemental ranges: <140 mg/dL before meals <180 mg/dL all other times of the day. Blood CAPILLARY BLOOD / Unknown 07/30/2024 7:40 AM EST 07/30/2024 7:40 AM EST Aubree Silverio MD POINT OF CARE TEST ORDERABLES Performing Organization Address [facility] Co de Phone Number [facility] [place] [address] * (ABNORMAL) CBC (with Diff) (07/30/2024 2:11 AM EST) [facility] White Blood Cell 11.25(H) 4.00 - [...] % 0.2 % 07/30/2024 2:33 AM EST [facility] Baso Absolute <0.04 0.00 - 0.10 x10(3)/mc L 07/30/2024 2:33 AM EST [facility] Immature Gran % 0.4 % 2:33 AM EST [facility] Immature Gran Absolute 0.05(H) 0.00 - 0.04 x10(3)/mc L 07/30/2024 2:33 AM EST [facility] Blood VENOUS BLOOD SPECIMEN / Unknown Venipuncture / Unknown 07/30/2024 2:11 AM EST 07/30/2024 2:22 AM EST Bridgette Stauffer MD HEMATOLOGY ORDERABLE S [facility] [place] [address] * Magnesium (07/30/2024 2:11 AM EST) Pathologist [facility] Magnesium 1.01 0.69 - 1.07 mMol/L 07/30/2024 2:51 AM EST [facility] Blood VENOUS BLOOD SPECIMEN / Unknown Venipuncture / Unknown 07/30/2024 2:11 AM EST 07/30/2024 2:22 AM EST Bridgette Stauffer MD CHEMISTRY ORDERABLES [facility] [place] [address] * (ABNORMAL) Basic Metabolic Panel (07/30/2024 2:11 AM EST) Glucose 190 65 - 199 mg/dL 07/30/2024 2:51 AM EST [facility] Comment:Glucose Concentratio n >=200 mg/dL plus symptoms is consistent with Diabetes Mellitus. Blood Urea Nitrogen 15 10 - 20 mg/dL 07/30/2024 2:51 AM EST [facility] Creatinine 0.88 0.80 - 1.50 mg/dL 07/30/2024 2:51 AM EST [facility] Sodium 135 135 - 145 mMol/L 07/30/2024 2:51 AM EST [facility] Potassium 4.9 3.5 - 5.0 mMol/L 07/30/2024 2:51 AM [facility] Chloride 105 98 - 107 mMol/L 07/30/2024 2:51 AM [facility] Carbon Dioxide 19(L) 22 - 31 mMol/L 07/30/2024 2:51 AM EST [facility] Anion Gap 11 5 - [...] MD CHEMISTRY ORDERABLES [facility] [place] [address] * (ABNORMAL) Cooximetry, POC (07/30/2024 1:00 AM [...] OF CARE TEST ORDERABLES Performing Organization Address City/State/[facility] Co de Phone Number [facility] [place] [address] * (ABNORMAL) Blood Gas, Arterial POC (07/30/2024 [...] CARE TEST ORDERABLES [facility] [place] [address] * (ABNORMAL) Troponin - Single (07/29/2024 10:31 [...] Access Hospital Laboratory Test Catalog Troponin - [email or web address]/[email or web address] Reference: Fourth [place] Definition of Myocardial Infarction. Journal of the [place] College [employer] 2018;72:0832-5357 Blood VENOUS BLOOD SPECIMEN / Unknown Venipuncture / Unknown 07/29/2024 10:31 PM EST 07/29/2024 10:36 PM EST Yrn Ward MD CHEMISTRY ORDERABL ES [facility] [place] [address] * Potassium (07/29/2024 8:11 PM EST) Pathologist [facility] Potassium 4.1 3.5 - 5.0 mMol/L 07/29/2024 8:52 PM EST [facility] Blood VENOUS BLOOD SPECIMEN / Unknown Venipuncture / Unknown 07/29/2024 8:11 PM EST 07/29/2024 8:16 PM EST Aubree Silverio MD CHEMISTRY ORDERABL ES Performing Organization Address [facility]/ZIP Co de Phone Number [facility] [place] [address] * (ABNORMAL) Troponin - Single (07/29/2024 8:11 [...] Access Hospital Laboratory Test Catalog Troponin - [email or web address]/catalogs/565/files/90101 Reference: Fourth [place] Definition of Myocardial Infarction. Journal of the [place] [employer] 2018;72:6928-3634 Blood VENOUS BLOOD SPECIMEN / Unknown Venipuncture / Unknown 07/29/2024 8:11 PM EST 07/29/2024 8:16 PM EST Aubree Silverio MD CHEMISTRY ORDERABL ES [facility] [place] [address] * (ABNORMAL) Phosphorus (07/29/2024 8:11 PM EST) Phosphorus 2.1(L) 2.5 - 4.5 mg/dL 07/29/2024 8:52 PM EST [facility] Blood VENOUS BLOOD SPECIMEN / Unknown Venipuncture / Unknown 07/29/2024 8:11 PM EST 07/29/2024 8:16 PM EST Aubree Silverio MD CHEMISTRY ORDERABL ES Performing Organization Address [facility] Co de Phone Number [facility] [place] [address] * POC, GLUCOSE (07/29/2024 8:09 PM EST) [facility] Signature Glucometer, POC 142 65 - 199 mg/dL 07/29/2024 8:09 PM EST [facility] Comment:Supplemental ranges: <140 mg/dL before meals <180 mg/dL all other times of the day. Blood CAPILLARY BLOOD / Unknown 07/29/2024 8:09 PM EST 07/29/2024 8:09 PM EST Aubree Silverio MD POINT OF CARE TEST ORDERABLES Performing Organization Address [facility] Co de Phone Number [facility] [place] [address] * ABORH RECHECK (07/29/2024 6:43 PM EST) ABORH Recheck AB POSITIVE 07/29/2024 10:13 PM EST [facility] Blood VENOUS BLOOD SPECIMEN / Unknown Venipuncture / Unknown 07/29/2024 6:43 PM EST 07/29/2024 7:15 PM EST Aubree Silverio MD BLOOD BANK LAB ORD ERABLES Performing Organization Address City/[facility]/ZIP Co de Phone Number [facility] [place] [address] * POC, GLUCOSE (07/29/2024 5:57 PM EST) [facility] Glucometer, POC 166 65 - 199 mg/dL 07/29/2024 5:57 PM EST [facility] Comment:Supplemental ranges: <140 mg/dL before meals <180 mg/dL all other times of the day. Blood CAPILLARY BLOOD / Unknown 07/29/2024 5:57 PM EST 07/29/2024 5:57 PM EST Aubree Silverio MD POINT OF CARE TEST ORDERABLES [facility] [place] [address] * Type and screen ([facility]/CGP/MAGALIE) (07/29/2024 5:56 PM EST) [facility] ABORH Type AB POSITIVE 07/29/2024 9:44 PM EST [facility] PATIENT HISTORY Not Found 07/29/2024 9:44 PM EST [facility] Expires at [id number] on: 08/01/2024 07/29/2024 9:44 PM EST [facility] ANTIBODY SCREEN AUTOMATED Negative 07/29/2024 9:44 PM EST [facility] T&S only valid at [facility] 07/29/2024 9:44 PM EST [facility] Blood VENOUS BLOOD SPECIMEN / Unknown Venipuncture / Unknown 07/29/2024 5:56 PM EST 07/29/2024 6:07 PM EST Narrative [facility] - 07/29/2024 9:44 PM EST This Type and Screen result is only valid at the [facility] Aburee Silverio MD BLOOD BANK LAB ORD ERABLES [facility] [place] [address] * (ABNORMAL) Troponin - Single (07/29/2024 4:52 [...] Access Hospital Laboratory Test Catalog Troponin - [email or web address]/catalogs/[email or web address]/files/[email or web address] Reference: Fourth [place] Definition of Myocardial Infarction. Journal of the [place] College of Cardiology 2018;72:5770-1730 Blood VENOUS BLOOD SPECIMEN / Unknown Venipuncture / Unknown 07/29/2024 4:52 PM EST 07/29/2024 4:57 PM EST Aubree Silverio MD CHEMISTRY ORDERABL ES [facility] [place] [address] * EKG 12 Lead (07/29/2024 4:21 PM EST) Ventricular rate 72 BPM MUSE SYSTEM Atrial Rate 72 BPM MUSE SYSTEM P-R Interval 168 ms MUSE SYSTEM QRS Duration 82 ms MUSE SYSTEM Q-T Interval 392 ms MUSE SYSTEM QTC Calculated (Bezet) 429 ms MUSE SYSTEM Calculated P [place] 71 degrees MUSE SYSTEM Calculated R [place] 77 degrees MUSE SYSTEM Calculated T [place] 28 degrees MUSE SYSTEM INTERPRETATION Sinus [...] CARE TEST ORDERABLES [facility] [place] [address] * POC, GLUCOSE (07/29/2024 4:19 PM EST) Glucometer, POC 185 65 - 199 mg/dL 07/29/2024 4:19 PM [facility] Comment:Supplemental ranges: <140 mg/dL before meals <180 mg/dL all other times of the day. Blood CAPILLARY BLOOD / Unknown 07/29/2024 4:19 PM EST 07/29/2024 4:19 PM EST Aubree Silverio MD POINT OF CARE TEST ORDERABLES Performing Organization Address [facility] Co de Phone Number [facility] [place] [address] * Blood culture (07/29/2024 4:08 PM EST) Blood Culture No growth at 120 hours 08/03/2024 5:01 PM EST [facility] Blood VENOUS BLOOD SPECIMEN / Unknown Venipuncture / Unknown 07/29/2024 4:08 PM EST 07/29/2024 4:15 PM EST Aubree Silverio MD MICROBIOLOGY - BLO OD ORDERABLES Performing Organization Address [facility] [place] [address] * Blood culture (07/29/2024 4:08 PM EST) Blood Culture No growth at 120 hours 08/03/2024 5:01 PM EST [facility] Blood VENOUS BLOOD SPECIMEN / Unknown Venipuncture / Unknown 07/29/2024 4:08 PM EST 07/29/2024 4:26 PM EST Aubree Silverio MD MICROBIOLOGY - BLO OD ORDERABLES Performing Organization Address [facility] Co de Phone Number [facility] [place] [address] * XR Chest One View (07/29/2024 2:30 PM EST) WORKSTATION ID [id number] RAD Anatomical Region Laterality Modality Chest N/A [...] questions please contact the health critical care technician that requested your imaging first. [...] have questions please contactthe health critical care technician that requested your imaging first. Vahe Marvin MD IMG DX ORDERABLES * (ABNORMAL) APTT (07/29/2024 2:03 PM EST) Partial Thromboplastin Time >160(HHH) 25 - 37 sec 07/29/2024 2:56 PM EST [facility] Blood VENOUS BLOOD SPECIMEN / Unknown Venipuncture / Unknown 07/29/2024 2:03 PM EST 07/29/2024 2:13 PM EST Vahe Marvin MD HEMATOLOGY ORDERABLE S Performing Organization Address [facility] Co de Phone Number [facility] [place] [address] * (ABNORMAL) Prothrombin Time (07/29/2024 2:03 PM [...] ORDERABLE S Performing Organization Address [facility] Co de Phone Number [facility] [place] [address] * CRP, acute inflammation (07/29/2024 2:03 PM EST) C-Reactive Protein <3.0 <=4.9 mg/L 07/29/2024 2:52 PM [facility] Blood VENOUS BLOOD SPECIMEN / Unknown Venipuncture / Unknown 07/29/2024 2:03 PM EST 07/29/2024 2:14 PM EST Vahe Marvin MD CHEMISTRY ORDERABLES [facility] [address] * Lipid Panel (Reflex Direct LDL) (07/29/2024 [...] [facility] - 07/29/2024 2:52 PM EST [...] ACC/AHA Guidelines (most recently Rolf et al. [facility] 06/15/22): * For individuals with atherosclerotic [...] Organization Address City/[facility]/ZIP Co de Phone Number [facility] [place] [address] * TSH [place] (07/29/2024 2:03 PM EST) Thyroid Stimulating Hormone 0.70 0.27 - 4.20 mcIU/mL 07/29/2024 2:52 PM EST [facility] Blood VENOUS BLOOD SPECIMEN / Unknown Venipuncture / Unknown 07/29/2024 2:03 PM EST 07/29/2024 2:14 PM EST Vahe Marvin MD CHEMISTRY ORDERABLES Performing Organization Address City/[facility]/ZIP Co de Phone Number [facility] [place] [address] * Hemoglobin A1c (07/29/2024 2:03 PM EST) Pathologist [facility] Hemoglobin A1c 5.3 4.3 - 5.6 [...] red blood cell turnover may not be provider service representative of glycemic control. Reference Interval: [...] into estimated average glucose values. ??Diabetes Care 2008:31(8):2298-6275. Additional resources are available on the ADA website (diabetes.org). Vahe Marvin MD CHEMISTRY ORDERABLES [facility] [place] [address] * (ABNORMAL) CBC (with Diff) (07/29/2024 2:03 PM EST) White Blood Cell 19.50(H) 4.00 - 9.50 x10(3)/mc L 07/29/2024 2:18 PM EST [facility] Red Blood Cell 4.81 4.58 - 5.54 x10(6)/mc L 07/29/2024 2:18 PM EST [facility] Hemoglobin 13.1(L) 13.7 - 16.5 g/dL 07/29/2024 2:18 PM [facility] Hematocrit 40.1(L) 40.5 - 48.5 % 07/29/2024 2:18 PM EST [facility] Mean Cell Volume 83.4 82.9 [...] Gran % 0.5 % 2:18 PM EST [facility] Immature Gran Absolute 0.09(H) 0.00 - 0.04 x10(3)/mc L 07/29/2024 2:18 PM EST [facility] Blood VENOUS BLOOD SPECIMEN / Unknown Venipuncture / Unknown 07/29/2024 2:03 PM EST 07/29/2024 2:13 PM EST Vahe Marvin MD HEMATOLOGY ORDERABLE S Performing Organization Address City/[facility]/ZIP Co de Phone Number [facility] [place] [address] * Phosphorus (07/29/2024 2:03 PM EST) Phosphorus 2.5 2.5 - 4.5 mg/dL 07/29/2024 2:52 PM EST [facility] Blood VENOUS BLOOD SPECIMEN / Unknown Venipuncture / Unknown 07/29/2024 2:03 PM EST 07/29/2024 2:14 PM EST Vahe Marvin MD CHEMISTRY ORDERABLES Performing Organization Address City/[facility]/ZIP Co de Phone Number [facility] [place] [address] * Magnesium (07/29/2024 2:03 PM EST) Magnesium 0.70 0.69 - 1.07 mMol/L 07/29/2024 2:52 PM EST [facility] Blood VENOUS BLOOD SPECIMEN / Unknown Venipuncture / Unknown 07/29/2024 2:03 PM EST 07/29/2024 2:14 PM EST Vahe Marvin MD CHEMISTRY ORDERABLES [facility] [place] [address] * (ABNORMAL) Comprehensive metabolic panel (07/29/2024 2:03 [...] 0.5 <=1.3 mg/dL 07/29/2024 3:11 PM EST [facility] Est Glomerular Filtration Rate - Male 91 mL/min/1. 73 m?? 07/29/2024 3:11 PM EST [facility] Comment: [...] MD CHEMISTRY ORDERABLES [facility] [place] [address] * (ABNORMAL) Troponin - Single (07/29/2024 2:03 [...] Access Hospital Laboratory Test Catalog Troponin - [email or web address]/[email or web address] Reference: Fourth [place] Definition of Myocardial Infarction. Journal of the [place] College of Cardiology 2018;72:0643-0008 Blood VENOUS BLOOD SPECIMEN / Unknown Venipuncture / Unknown 07/29/2024 2:03 PM EST 07/29/2024 2:14 PM EST Vahe Marvin MD CHEMISTRY ORDERABLES [facility] [place] [address] * (ABNORMAL) Blood Gas, Venous POC (07/29/2024 [...] Venous 0.8 % 07/29/2024 2:02 PM EST [facility] Comment: Nonsmokers: 0.5-1.5% COHB ?? Smokers: Variable ??but usually less than 10% ?? Toxic: 20-30% COHB ?? Lethal: Greater than 60% COHB Methemoglobin, Venous 0.3 <=1.5 % 07/29/2024 2:02 PM EST [facility] Sodium, Venous 137 135 - 145 mmol/L 07/29/2024 2:02 PM EST [facility] Potassium, Venous 3.6 3.5 - 5.0 mmol/L 07/29/2024 2:02 PM [facility] Chloride, Venous 103 98 - 107 mmol/L 07/29/2024 2:02 PM [facility] Glucose, Venous 229(H) 65 - 199 mg/dL 07/29/2024 2:02 PM [facility] Comment:Glucose Concentratio n >=200 mg/dL plus symptoms is consistent with Diabetes Mellitus. Lactate, Venous 3.1(H) 0.5 - 2.2 mmol/L 07/29/2024 2:02 PM [facility] Ionized Calcium, Venous 1.11(L) 1.15 - 1.33 mmol/L 07/29/2024 2:02 PM [facility] Blood VENOUS BLOOD SPECIMEN / Unknown 07/29/2024 2:01 PM EST 07/29/2024 2:02 PM EST Vahe Marvin MD POINT OF CARE TEST O RDERABLES [facility] [place] [address] * CARDIAC CATHETERIZATION (07/29/2024 1:20 PM EST) Anatomical Region Laterality Modality Other Narrative 07/29/2024 2:02 PM EST ?[facility] ? Cardiac Catheterization/Intervention Report ? Patient Name: Korey Montoya. ? Procedure Date: 07/29/2024 ? A #: [id number] ? Primary Physician: Shavonne, Vahe S ? Case #: [id number] ? File Name: [id number] ? Catheterization Order Number: [id number] ? [facility] ? Final Report [place], [place] ? Patient Name: ? Korey P. Montoya ?ID#: ?[id number] ? : ?1950 ? Procedure Date: ? July 29, 2024 ?Case #: ? [id number] ? Room: ? 5 ? Case Physician: [...] procedure was Emergent. The indication for ?the experimental machining lab manager visit is ACS less than or equal [...] 3.5 guiding catheter and a 3.5 Fr [place] Eye Syc[address] ST ??20 Mhz using ?Manual pullback. ??Imaging [...] A premounted 3.00 x 22 mm [place] (LOW) was deployed ? with a maximum [...] ??A premounted 3.00 x 08 mm [place] (LOW) ? was deployed with a maximum [...] dose administered prior to arrival in the experimental machining lab manager. ?Recommended anti-platelet/anti-thrombotic regimen: ?Start aspirin 81 mg daily now and continue for 12 months then stop. ?Start clopidogrel 75 mg daily now and continue for indefinitely. ?These recommendations are made at the time of the intervention. Patient ?and provider preferences or a changing clinical situation may require ?modification of this regimen. Consult [facility] Interventional Cardiology for ?questions. [...] able ?to start weaning his inotropes/vasopressors. A [place] Colette catheter was ?placed demonstrating improvement in his hemodynamics and the impella site ?was perclosed and hemostatic gauze was applied with excellent result. ?WIll transfer to the CV for further management. ?The attending physician was present for the entire procedure. ?Dr. Vaeh Marvin M.D. was present during the moderate sedation ?intraservice time as documented by the sedation nurse. ??Case time = 01:26. ?Dr. Vahe Marvin M.D. performed the coronary angiography, left heart ?catheterization, IVUS # coronary, stent insertion-coronary, oximetry, ABG, ?transthoracic echo , ventricular assist device insertion, right heart ?catheterization, [place] (flow directed cath) insertion, access site ?angiography, vascular ultrasound, venous line / sheath insert and vascular ?closure device. ? Vahe Marvin M.D. ? Electronically Signed by: Vahe Marvin M.D. ? Report Finalized: 07/29/2024 ??13:55 ? Report Last Ammended: 09/20/2024 ??15:21 ? Procedure Note Vahe Marvin MD - 09/20/2024 [facility] Cardiac Catheterization/Intervention Report Patient Name: Korey Montoya Procedure Date: 07/29/2024 A #: [id number] Primary Physician: Vahe Marvin Case #: [id number] File Name: [id number] Catheterization Order Number: [id number] [facility] FinalReport [place], [place] Patient Name: Korey Montoya ID#:[id number] :1950 Procedure Date: July 29, 2024 Case [...] ASA Class IV. The [facility] clinical frailtyscale is 4: Vulnerable. Diagnostic Tests: Electrocardiography: EKG was assessed by ECG. EKG was Abnormal. EKG showed STDeviation >= 0.5 mm. Medications Prior to Procedure: Angiotensin II Receptor Elvis and Statin. Indications for Diagnostic Cath: The priority of the diagnostic procedure was Emergent. Theindication for the experimental machining lab manager visit is ACS less than or equal [...] 3.5 guiding catheter and a 3.5 Fr [place] [address] 20 Mhzusing Manual pullback. Imaging was [...] The priority for the procedure was Emergent.[facility] STEMI-Immediate [...] The lesion was predilated with a 2.00mm [id number] MM balloon with a maximum inflation pressure of 12atmospheres. A premounted 3.00 x 22 mm [place] (LOW) wasdeployed with a maximum inflation pressure [...] atmospheres. A premounted 3.00 x 08 mm [place](LOW) was deployed with a maximum inflation pressure [...] dose administered prior to arrival in the experimental machining lab manager. Recommended anti-platelet/anti-thrombotic regimen: Start aspirin 81 mg daily now and continue for 12 months then stop. Start clopidogrel 75 mg daily now and continue for indefinitely. These recommendations are made at the time of the intervention.Patient and provider preferences or a changing clinical situation mayrequire modification of this regimen. Consult [facility] Interventional Cardiologyfor questions. The [...] wereable to start weaning his inotropes/vasopressors. A [place] Colette catheterwas placed demonstrating improvement in his [...] ventricular assist device insertion, right heart catheterization, [place] (flow directed cath) insertion, access site angiography, [...] TEST O RDERABLES [facility] [place] [address] * (ABNORMAL) BLOOD GAS, POC (07/29/2024 12:12 [...] 26.0 mmol/L 07/30/2024 7:30 AM EST [facility] Carbon Dioxide, POC 21(L) 22 - 31 mmol/L 07/30/2024 7:30 AM EST [facility] Blood VENOUS BLOOD SPECIMEN / Unknown 07/29/2024 12:12 PM EST 07/30/2024 7:30 AM EST Vahe Marvin MD POINT OF CARE TEST O RDERABLES [facility] [place] [address] documented in this encounter Visit Diagnoses Diagnosis [...] off of anti-Xa levels per the [facility] Anti-Xa Algorithm and inform [...] must be infused through a [employer] [facility] Bag 07/30/2024 10:25 PM EST 20 mEq [...] must be infused through a [employer] [facility] Bag 08/01/2024 5:14 AM EST 20 mEq [...] Routine documented in this encounter Care Teams Powertrain Engineer Relationship Specialty Start Date End Date Alexia Mtz, SMALL BUSINESS CONSULTANT [address] [place] [address] PCP - General Family Medicine 07/30/24 documented as of this encounter
--- OUTSIDE RECORDS SUMMARY | 2024-10-10 10:16 | XMS_ITS | Encounter Summary ---
[place] [address] Care Team Providers Care Carbon Accountant Name Role Phone Alexia Mtz FREDRICK Primary Care Provider [phone] Reason for Visit * Auth/Cert (Routine) Specialty Diagnoses / Procedures Referred By Theodore muro Referred To Contact Diagnoses STEMI (ST elevation myocardial infarction) STEMI Procedures ER SUI Vahe Marvin MD [facility] [place] [address] [facility] Referral ID Status Reason Start Date Expiration Date Visits Re quested Visits Authorized [id number] 1 1 Encounter Details Date Type Department Care Team (Late st Contact Info) Description 07/31/2024 4:30 PM EST - 07/31/2024 5:30 PM EST Surgery [place] [address] Maldonado Luis MD [facility] [place] [address] CARDIAC CATHETERIZATION Social History Tobacco Use Types Packs/Day Years Used Date Smoking Tobacco: Former Cigarettes Smokeless Tobacco: Never Alcohol Use Standard Drinks/Week Comments Not Currently 0 (1 standard drink = 0.6 oz pur e alcohol) [facility] Utilities Answer Date Recorded In the past 12 months has [employer] electric, gas, oil, or water company threatened [...] Korey Montoya Patient Age: 74 y.o. Language: Barbadian Race: White Ethnicity: Not nor Admit date: [...] please contact your inpatient physician through the [facility] Electrical And Instrument Engineer . Issues afterhours and on weekends [...] EKG. Patient transferred via air ambulance to [facility] on 07/29 for LHC and LOW to [...] EKG. Was transferred via air ambulance to [facility] for further management and LHC demonstrated 100% [...] the next year. Access was via right ROLLER COASTER DESIGNER and this sitewas clean, dry and intact [...] for Chest pain. Replaces: nitroGLYcerin 400 mcg/spray [place], Non-Aerosol 0.4 mg Quantity: 90 tablet Refills: [...] Refills: 0 STOPPED Medications nitroGLYcerin 400 mcg/spray [place], Non-Aerosol Commonly known as: NITROLINGUAL Replaced by: [...] of one year. After this time, your pageant director will determine if you need to [...] away. Stay on the phone. The emergency macerator operator will tell you what to do. [...] appointments: During 8am-5pm Tuesday through Tuesday call [phone] to speak with a nurse in the cardiology clinic All other times call [phone] and ask to speak to the web press jogger correctional agency director. Follow up Appointments: PCP Alexia Mtz, STEAM CONDITIONING OPERATOR [phone]. Please call to establish a follow up appointment within 1-2 weeks of discharge. Cardiology. Referral to heart failure has been sent. General Instructions None Future Appointments and Orders Future Orders Complete By Expires Referral to Cardiac Rehab [[id number] Custom] As directed Process Instructions: If no progress note charted, please enter Clinical details in comments. Scheduling Instructions: Questions: My question or request is: STEMI, PCI- cardiac rehab at [facility] Referral to Cardiology [REF12 Custom] [...] of one year. After this time, your pageant director will determine if you need to [...] away. Stay on the phone. The emergency macerator operator will tell you what to do. [...] appointments: During 8am-5pm Tuesday through Tuesday call [phone] to speak with a nurse in the cardiology clinic All other times call [phone] and ask to speak to the web press jogger correctional agency director. Follow up Appointments: PCP Alexia Mtz, STEAM CONDITIONING OPERATOR [phone]. Please call to establish a follow up [...] EKG. Patient transferred via air ambulance to [facility] on 07/29 for LHC and LOW to LAD for 100% occlusion Social History: Pt lives with his in a 1 level home with 2 NAOMI. 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 He [...] Total time: 35 (tef) minutes Time IN/OUT: [id number] ZAIDA DUBOSE PT Pager: [phone] Physical Therapy Inpatient Rehabilitation Department * Yrn Ward MD - 08/03/2024 10:38 AM EST CV HOSPITALIST 2 - [facility] DAILY PROGRESS NOTE Page [phone] to reach a provider 04/04 Admit Date: [...] Compared to the overnight study by the correctional agency director fellow the impella position is stable. 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 [facility] 07/29/24 Conclusions: * One vessel coronary artery disease (LAD) * Mild pulmonary hypertension * Elevated pulmonary capillary wedge pressure * Successful stent insertion of the proximal LAD lesion * See Dual Antiplatelet (DAPT) Recommendations above * Successful impella placement for cardiogenic shock. Telemetry: I have personally reviewed and interpreted the telemetry from the last 24 hours. [facility] Assessment: ASSESSMENT: Korey Montoya is a 74 y.o. male w/ PMH of hypertension, HLD, and BPH who presents for chief concern of chest pain after being found to have ST elevations on EKG. Patient transferred via air ambulance to [facility] on 07/29 for C and LOW to [...] to be determined OT: PCP Alexia Mtz, STEAM CONDITIONING OPERATOR [phone] * Zaida Dubose, PT - 08/02/2024 2:08 PM EST Physical Therapy Evaluation Patient profile: Korey Montoya is a 74 y.o. male w/ PMH of hypertension, HLD, and BPH who presents for chief concern of chest pain after being found to have ST elevations on EKG. Patient transferred via air ambulance to [facility] on 07/29 for LHC and LOW to LAD for 100% occlusion Social History: Pt lives with his in a 1 level home with 2 NAOMI. 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 He [...] Total time: 37 (eval) minutes Time IN/OUT: 1356-5728 ZAIDA DUBOSE, PT Pager: [phone] Physical Therapy Inpatient Rehabilitation Department * Gagan [...] EKG. Patient transferred via air ambulance to [facility] on 07/29 for LHC and LOW to [...] PCP: Alexia Mtz APRN PCP phone number: [phone] Date of Admission: 07/29/2024 ( Hospital Day 4 days ) Attending:Bridgette Stauffer MD ID: Korey Montoya is a 74 y.o. male w/ PMH of hypertension, HLD, and BPH on Hospital Day4 for chief concern of chest pain after being found to have ST elevations on EKG. Patient transferred via air ambulance to [facility] on 07/29 for LHC and LOW to [...] 07/29/24 1621 PHART 7.48* 7.44 7.38 7.37 BPX3GSB 29* 29* 34* 36 PO2ART 71* 109* 141* 71* JTO8BDP 20.6 19.4* 19.5* 20.4 VBG (Venous Blood Gas) Recent Labs 07/29/24 1401 PHVEN 7.30* PO2VEN 39 FXY2QOQ 20.1* Mixed Venous Sat No results for input(s): X2GOIJ2 in the last 168 hours. Objective: Vitals [...] 07/29/24 1621 PHART 7.48* 7.44 7.38 7.37 WHO4EDB 29* 29* 34* 36 PO2ART 71* 109* 141* 71* RKZ7PXG 20.6 19.4* 19.5* 20.4 VBG (Venous Blood Gas) Recent Labs 07/29/24 1401 PHVEN 7.30* PO2VEN 39 AGP0GNF 20.1* Mixed Venous Sat No results for input(s): P0PWJF8 in the last 168 hours. Microbiology: Microbiology Results (Last 30 days) Procedure Component Value Units Date/Time Blood culture [[id number]] Collected: 07/29/241607 Lab Status: Preliminary result Specimen: Blood, Venous Updated: 08/01/241700 Blood Culture No growth at 72 hours Blood culture [[id number]] Collected: 07/29/241607 Lab Status: Preliminary result Specimen: Blood, Venous Updated: 08/01/241700 Blood Culture No growth at 72 hours Imaging: Results for orders placed or performed during the hospital encounter of 07/29/24 XR Chest One View (Exam End: 07/29/2024 2:30 PM) Result Value WORKSTATION ID [id number] Impression 1. No pulmonary edema. 2. No pleural effusion. 3. No pneumothorax. Thank you for letting us participate in the care of this patient. If you are a health care provider and have any questions regarding this report, please contact the number below. For patients who have questions please contact the health care management assistant that requested your imaging first. Electronically signed by: Chris Candelaria MD, [facility] ([phone]), at 07/29/2024 3:21 PM TTE ( 07/30/24) [...] Compared to the overnight study by the correctional agency director fellow the impella position is stable. [...] EKG. Patient transferred via air ambulance to [facility] on 07/29 for LHC and LOW to [...] today). Transfer to floor. Krystal Parker MD, [facility], [facility] Staff Condenser Setter delivery technician * Gagan Catherine MD - 08/01/2024 [...] EKG. Patient transferred via air ambulance to [facility] on 07/29 for LHC and LOW to [...] PCP: Alexia Mtz APRN PCP phone number: [phone] Date of Admission: 07/29/2024 ( Hospital Day 3 days ) Attending:Krystal Parker MD ID: Korey Montoya is a 74 y.o. male w/ PMH of hypertension, HLD, and BPH on Hospital Day3 for chief concern of chest pain after being found to have ST elevations on EKG. Patient transferred via air ambulance to [facility] on 07/29 for LHC and LOW to [...] 07/29/24 1621 PHART 7.48* 7.44 7.38 7.37 KSS7SRI 29* 29* 34* 36 PO2ART 71* 109* 141* 71* FDK1NFS 20.6 19.4* 19.5* 20.4 VBG (Venous Blood Gas) Recent Labs 07/29/24 1401 PHVEN 7.30* PO2VEN 39 TTU9IMG 20.1* Mixed Venous Sat No results for input(s): R2AJYJ3 in the last 168 hours. PA Catheter [...] 07/29/24 1621 PHART 7.48* 7.44 7.38 7.37 JWH1XTH 29* 29* 34* 36 PO2ART 71* 109* 141* 71* RXE7GXH 20.6 19.4* 19.5* 20.4 VBG (Venous Blood Gas) Recent Labs 07/29/24 1401 PHVEN 7.30* PO2VEN 39 HBW9SJL 20.1* Mixed Venous Sat No results for input(s): L9NCSR3 in the last 168 hours. Microbiology: Microbiology Results (Last 30 days) Procedure Component Value Units Date/Time Blood culture [[id number]] Collected: 07/29/24 1608 Lab Status: Preliminary result Specimen: Blood, Venous Updated: 07/31/24 170 Blood Culture No growth at 48 hours Blood culture [[id number]] Collected: 07/29/24 1608 Lab Status: Preliminary result Specimen: Blood, Venous Updated: 07/31/24 1701 Blood Culture No growth at 48 hours Imaging: Results for orders placed or performed during the hospital encounter of 07/29/24 XR Chest One View (Exam End: 07/29/2024 2:30 PM) Result Value WORKSTATION ID [id number] Impression 1. No pulmonary edema. 2. No pleural effusion. 3. No pneumothorax. Thank you for letting us participate in the care of this patient. If you are a health care provider and have any questions regarding this report, please contact the number below. For patients who have questions please contact the health care management assistant that requested your imaging first. Electronically signed by: Chris Candelaria MD, [facility] ([phone]), at 07/29/2024 3:21 PM TTE ( 07/30/24) [...] Compared to the overnight study by the correctional agency director fellow the impella position is stable. [...] EKG. Patient transferred via air ambulance to [facility] on 07/29 for LHC and LOW to [...] Cardiology, [facility] 08/01/24 7:13 AM CARDIOLOGY STAFF NOTE I [...] with him; questions answered. Krystal Parker MD, [facility], [facility] Staff Condenser Setter delivery technician * Krystal Parker MD - 07/31/2024 [...] EKG. Patient transferred via air ambulance to [facility] on 07/29 for LHC and LOW to [...] PCP: Alexia Mtz APRN PCP phone number: [phone] Date of Admission: 07/29/2024 ( Hospital Day 2 days ) Attending:Krystal Parker MD ID: Korey Montoya is a 74 y.o. male w/ PMH of hypertension, HLD, and BPH on Hospital Day2 for chief concern of chest pain after being found to have ST elevations on EKG. Patient transferred via air ambulance to [facility] on 07/29 for LHC and LOW to [...] 0057 07/29/24 1621 PHART 7.44 7.38 7.37 DBS4RTF 29* 34* 36 PO2ART 109* 141* 71* QMY4WFM 19.4* 19.5* 20.4 VBG (Venous Blood Gas) Recent Labs 07/29/24 1401 PHVEN 7.30* PO2VEN 39 KUX6QUM 20.1* Mixed Venous Sat No results for input(s): R1MJSS3 in the last 168 hours. PA Catheter [...] 0057 07/29/24 1621 PHART 7.44 7.38 7.37 IGA3ODN 29* 34* 36 PO2ART 109* 141* 71* JEK2XCZ 19.4* 19.5* 20.4 VBG (Venous Blood Gas) Recent Labs 07/29/24 1401 PHVEN 7.30* PO2VEN 39 KJH6GLK 20.1* Mixed Venous Sat No results for input(s): E9UQTD5 in the last 168 hours. Microbiology: Microbiology Results (Last 30 days) Procedure Component Value Units Date/Time Blood culture [[id number]] Collected: 07/29/241607 Lab Status: Preliminary result Specimen: Blood, Venous Updated: 07/30/241700 Blood Culture No Growth at 18-24 hrs. Blood culture [[id number]] Collected: 07/29/241607 Lab Status: Preliminary result Specimen: Blood, Venous Updated: 07/30/241700 Blood Culture No Growth at 18-24 hrs. Imaging: Results for orders placed or performed during the hospital encounter of 07/29/24 XR Chest One View (Exam End: 07/29/2024 2:30 PM) Result Value WORKSTATION ID [id number] Impression 1. No pulmonary edema. 2. No pleural effusion. 3. No pneumothorax. Thank you for letting us participate in the care of this patient. If you are a health care provider and have any questions regarding this report, please contact the number below. For patients who have questions please contact the health care management assistant that requested your imaging first. Electronically signed by: Chris Candelaria MD, [facility] ([phone]), at 07/29/2024 3:21 PM TTE ( 07/30/24) [...] Compared to the overnight study by the correctional agency director fellow the impella position is stable. [...] EKG. Patient transferred via air ambulance to [facility] on 07/29 for LHC and LOW to [...] work to optimize volume status while continuing jeqlzua-uxacqu-mcjaoteyzo therapies at this time. Obtain comprehensive TTE. [...] EKG. Patient transferred via air ambulance to [facility] on 07/29 for LHC and LOW to [...] PCP: Yoel Artis APRN PCP phone number: [phone] Date of Admission: 07/29/2024 ( Hospital Day 1 day ) Attending:Jay Silverio MD ID: Korey Montoya is a 74 y.o. male w/ PMH of hypertension, HLD, and BPH on Hospital Day1 for chief concern of chest pain after being found to have ST elevations on EKG. Patient transferred via air ambulance to [facility] on 07/29 for LHC and LOW to LAD for 100% occlusion. 24 Hour Events/Subjective: Yesterday: - Admitted to the [facility] - After his LHC, he demonstrated significant [...] 0057 07/29/24 1621 PHART 7.44 7.38 7.37 OAR9MBU 29* 34* 36 PO2ART 109* 141* 71* POB0SEF 19.4* 19.5* 20.4 VBG (Venous Blood Gas) Recent Labs 07/29/24 1401 PHVEN 7.30* PO2VEN 39 AXN0MLP 20.1* Lactate ( Last 12 hours) 1.3 >> 1.2 Mixed Venous Sat No results for input(s): T0EHXC9 in the last 168 hours. PA Catheter [...] 0057 07/29/24 1621 PHART 7.44 7.38 7.37 ZLP7BEP 29* 34* 36 PO2ART 109* 141* 71* KBZ7MTR 19.4* 19.5* 20.4 VBG (Venous Blood Gas) Recent Labs 07/29/24 1401 PHVEN 7.30* PO2VEN 39 MMQ1GRQ 20.1* Mixed Venous Sat No results for input(s): B5URCC9 in the last 168 hours. Microbiology: Microbiology Results (Last 30 days) Procedure Component Value Units Date/Time Blood culture [[id number]] Collected: 07/29/24 1608 Lab Status: In process Specimen: Blood, Venous Updated: 07/29/24 162 Blood culture [[id number]] Collected: 07/29/24 1608 Lab Status: In process Specimen: Blood, Venous Updated: 07/29/24 1615 Imaging: Results for orders placed or performed during the hospital encounter of 07/29/24 XR Chest One View (Exam End: 07/29/2024 2:30 PM) Result Value WORKSTATION ID [id number] Impression 1. No pulmonary edema. 2. No pleural effusion. 3. No pneumothorax. Thank you for letting us participate in the care of this patient. If you are a health care provider and have any questions regarding this report, please contact the number below. For patients who have questions please contact the health care management assistant that requested your imaging first. Electronically signed by: Chris Candelaria MD, [facility] ([phone]), at 07/29/2024 3:21 PM Medications Scheduled Meds: [...] EKG. Patient transferred via air ambulance to [facility] on 07/29 for LHC and LOW to [...] EKG. Patient transferred via air ambulance to [facility] on 07/29 for LHC and LOW to [...] EKG. Was transferred via air ambulance to [facility] for further management and [facility] demo nstrated 100% occlusion. No significant [...] mouth. Past Week nitroGLYcerin (NITROLINGUAL) 400 mcg/spray [place], Non-Aerosol 1 spray to anus for proctalgia [...] 3.5 guiding catheter and a 3.5 Fr [facility] [employer] [place] [facility] 20 Mhz using Manual pullback. Imaging [...] A premounted 3.00 x 22 mm [place] (LOW) was deployed with a maximum inflation [...] A premounted 3.00 x 08 mm [place] (LOW) was deployed with a maximum inflation [...] a limited study performed by a fellow correctional agency director to evaluate for cardiogenic shock with [...] Compared to the overnight study by the correctional agency director fellow the impella position is stable. [...] EKG. Patient transferred via air ambulance to [facility] on 07/29 for LHC and LOW to [...] PCP: Yoel Artis APRN PCP phone number: [phone] Date of Admission: 07/29/2024 ( Hospital Day 0 days ) Attending:Jay Silverio MD ID: Korey Montoya is a 74 y.o. male w/ PMH of hypertension, HLD, and BPH who presents for chief concern of chest pain after being found to have ST elevations on EKG. Patient transferred via air ambulance to [facility] on 07/29 for LHC and LOW to LAD for 100% occlusion. HPI: Korey Montoya is a 74 y.o. male w/ PMH of hypertension, HLD, and BPH who presents for chief concern of chest pain after being found to have ST elevations on EKG. Patient transferred via air ambulance to [facility] on 07/29 for LHC and LOW to [...] EKG. Was transferred via air ambulance to [facility] for further management and LHC demonstrated 100% [...] Blood Gas) No results for input(s): PHART, CLH7CDR, PO2ART, SAF1LAS, LACTATEVEN, EKX1MQK, PFRATIOART2 in the last 168 hours. VBG (Venous Blood Gas) Recent Labs 07/29/24 1401 PHVEN 7.30* PO2VEN 39 UEB3TIZ 20.1* Mixed Venous Sat No results for input(s): T7QYOS0 in the last 168 hours. PA Catheter [...] Blood Gas) No results for input(s): PHART, HFJ9UWW, PO2ART, ZVG1LBH, LACTATEVEN, MNN3QGN, PFRATIOART2 in the last 168 hours. VBG (Venous Blood Gas) Recent Labs 07/29/24 1401 PHVEN 7.30* PO2VEN 39 SIY4KYE 20.1* Mixed Venous Sat No results for input(s): T3FIUX8 in the last 168 hours. Microbiology: Microbiology [...] EKG. Patient transferred via air ambulance to [facility] on 07/29 for [facility]. Found to have 100% occlusion of LAD [...] MD, FACP, FACC Section of Cardiovascular Medicine [facility] Clinical Fellowmold cooler [facility] This patient meets or has met [...] to the planned procedure. Hand Hygiene: The airport ramp attendant did perform hand hygiene prior to [...] ease. Good wave form. Ivan Hernandez MD Model And Mold Maker Associated attestation - Rolando Yeh MD - [...] outpatient cardiac rehabilitation program at [facility] was discussed. Patient agrees to [...] No Patient is insured through: Primary Insurance: [facility] MANAGED MEDICARE Payor: [facility] MEDICARE / Plan: AARP RPPO MANAGED [...] of Discharge: 08/04/2024 Gaby Wong RN, CM [phone] * Initial Assessments - Char Meza, OT - 08/03/2024 10:00 AM EST Occupational Therapy Evaluation Patient profile: Korey Montoya is a 74 y.o. male admitted on 07/29/2024 w/ PMH of hypertension, HLD, and BPH who presents for chief concern of chest pain after being found to have ST elevations onEKG. Patient transferred via air ambulance to [facility] on 07/29 for LHC and LOW to [...] falls. Subjective: I have access to an [employer] weight gym. (Educated to wait for MD [...] evaluation only Total Minutes, Occupational Therapy: 14 ([phone] (evaluation)) 2017 OT Evaluation Code Rationale: Diagnosis [...] and measurable assessment of functional outcome. Pager: [phone] Char Meza OT 08/03/2024 Occupational Therapy Rehabilitation [...] (Interventions Implemented as Appropriate) Flowsheets (Taken 08/01/2024 3338) Outcome Summary: A+O, no pain. NSR. MAP [...] Procedure Note: Patient Name: Korey Montoya : [id number] MR#: [id number] Case Date: 07/31/2024 Electrical And Instrument Engineer: Surgeons and Role: * Maldonado Luis MD - Primary * Quinten Charles PA - Physician Chemical Processing Laborer Preoperative diagnosis: shock, impella Postoperative diagnosis: * same * Procedure(s) performed: Impella removal form right ROLLER COASTER DESIGNER Access: Right ROLLER COASTER DESIGNER A time-out was conducted prior to the [...] care in [place] must abide by [place] law. The hierarchy [...] (i) The agent with financial power of trust and estates attorney or a conservator appointed in accordance [...] In the past 12 months has the [employer] gas, oil, or water Scic[employer] threatened to shut off services in your [...] Address: [facility] [address] [facility] [address] Physical Address: [address] [place], [place] Social & Family Supports: All names [...] points: Addiction likely Health/Prescription Coverage: Primary Insurance: [employer] MANAGED MEDICARE Payor: [employer] MEDICARE / Plan: [employer] [facility]IC[facility] COMPLETE / Product Type: *No Product type* / Secondary Insurance: N/A ; Prescription Coverage: Yes Preferred Pharmacy: [address] [address] [place] Status: Patient is a : No Primary Care Provider confirmed: Alexia Mtz, STEAM CONDITIONING OPERATOR [phone] Patient/Caregiver Goals of Treatment: return home Potential [...] 07/29/2024 6:25 PM EST Pt arrived from cath laboratory technician @ 1400. CXR and EKG [...] Procedure Note: Patient Name: Korey Montoya : [id number] MR#: [id number] Case Date: 07/29/2024 Electrical And Instrument Engineer: Surgeons and Role: * Vahe Marvin MD - Primary * Susannah Watts PA - Physician Chemical Processing Laborer Preoperative diagnosis: STEMI Postoperative diagnosis: * STEMI, LAD Artery * * Cardiogenic Shock * Procedure(s) performed: [facility] Coronary angiogram Stent insertion coronary IVUS coronary Venous line insert C Adah Colette Catheter Vascular closure device Ventricular assist [...] x 22 mm to 14 deonna JEISON Renville with LIZ 3 flow. Residual distal disease at distal stent, overlapping distal stent was inserted with 3.0 x 8 mm [place]. Systolic's in the 80's sustained. Patient re [...] 9:30 AM EST Appointment Non-[place] [address] Mushtaq Murphy APRN 10/31/2024 11:00 AM EST Office Visit Cardiology at [address] [address] Mushtaq Murphy, FREDRICK Scheduled Orders Name Type [...] MD HEMATOLOGY ORDERABLE S Performing Organization Address City/[facility]/ZIP Co de Phone Number [facility] [place] [address] * Magnesium (08/04/2024 6:08 AM EST) Magnesium 0.85 0.69 - 1.07 mMol/L 08/04/2024 7:07 AM [facility] Blood VENOUS BLOOD SPECIMEN / Unknown Venipuncture / Unknown 08/04/2024 6:08 AM EST 08/04/2024 6:19 AM EST Bridgette Stauffer MD CHEMISTRY ORDERABLES [facility] [place] [address] * Basic Metabolic Panel (08/04/2024 6:08 AM [...] [facility] [place] [address] * (ABNORMAL) CBC (with Diff) (08/03/2024 5:16 [...] [facility] [place] [address] * Magnesium (08/03/2024 5:16 AM EST) Magnesium 0.89 0.69 - 1.07 mMol/L 08/03/2024 5:56 AM [facility] Blood VENOUS BLOOD SPECIMEN / Unknown Venipuncture / Unknown 08/03/2024 5:16 AM EST 08/03/2024 5:23 AM EST Bridgette Stauffer MD CHEMISTRY ORDERABLES [facility] [place] [address] * (ABNORMAL) Basic Metabolic Panel (08/03/2024 5:16 [...] CHEMISTRY ORDERABLES Performing Organization Address [facility]/ZIP Co de Phone Number [facility] [place] [address] * POC, GLUCOSE (08/02/2024 7:47 AM EST) [facility] Glucometer, POC 89 65 - 199 mg/dL 08/02/2024 7:47 AM EST [facility] Comment:Supplemental ranges: <140 mg/dL before meals <180 mg/dL all other times of the day. Blood CAPILLARY BLOOD / Unknown 08/02/2024 7:47 AM EST 08/02/2024 7:47 AM EST Krystal Parker MD POINT OF CARE TEST O RDERABLES Performing Organization Address [facility] Co de Phone Number [facility] [place] [address] * (ABNORMAL) CBC (with Diff) (08/02/2024 4:20 [...] [facility] [place] [address] * Magnesium (08/02/2024 4:20 AM EST) Magnesium 0.79 0.69 - 1.07 mMol/L 08/02/2024 5:06 AM EST [facility] Blood VENOUS BLOOD SPECIMEN / Unknown Venipuncture / Unknown 08/02/2024 4:20 AM EST 08/02/2024 4:37 AM EST Bridgette Stauffer MD CHEMISTRY ORDERABLES [facility] [place] [address] * (ABNORMAL) Basic Metabolic Panel (08/02/2024 4:20 [...] Eh MD CHEMISTRY ORDERABLES Performing Organization Address [facility] Co de Phone Number [facility] [place] [address] * Potassium (08/01/2024 8:39 PM EST) Potassium 4.0 3.5 - 5.0 mMol/L 08/01/2024 9:21 PM EST [facility] Blood VENOUS BLOOD SPECIMEN / Unknown Venipuncture / Unknown 08/01/2024 8:39 PM EST 08/01/2024 8:51 PM EST Jay Silverio MD CHEMISTRY ORDERABL ES Performing Organization Address [facility] Number [facility] [place] [address] * POC, GLUCOSE (08/01/2024 8:35 PM EST) [...] O RDERABLES Performing Organization Address [facility] Co de Phone Number [facility] [place] [address] * POC, GLUCOSE (08/01/2024 4:55 PM EST) Glucometer, POC 99 65 - 199 mg/dL 08/01/2024 4:56 PM EST [facility] Comment:Supplemental ranges: <140 mg/dL before meals <180 mg/dL all other times of the day. Blood CAPILLARY BLOOD / Unknown 08/01/2024 4:55 PM EST 08/01/2024 4:56 PM EST Krystal Parker MD POINT OF CARE TEST O RDERABLES Performing Organization Address City/[facility]/ZIP Co de Phone Number [facility] [place] [address] * POC, GLUCOSE (08/01/2024 12:42 PM EST) [...] O JOSH Performing Organization Address [facility] Co de Phone Number [facility] [place] [address] * (ABNORMAL) Cooximetry, POC (08/01/2024 10:45 AM EST) pO2, Coox 32 mmHg 08/01/2024 10:48 AM [facility] Hemoglobin, Coox 12.9(L) 13.7 - 16.5 g/dL 08/01/2024 10:48 AM [facility] Oxyhemoglobin, Coox 66.7 % 08/01/2024 10:48 AM [facility] Carboxyhemoglo bin, Coox 1.1 % 08/01/2024 10:48 AM [facility] Comment: Nonsmokers: 0.5-1.5% COHB ?? Smokers: Variable ??but usually less than 10% ?? Toxic: 20-30% COHB ?? Lethal: Greater than 60% COHB Methemoglobin, Coox 0.3 <=1.5 % 08/01/2024 10:48 AM [facility] Blood (Mixed Venous) 08/01/2024 10:45 AM EST 08/01/2024 10:48 AM EST Krystal Parker MD POINT OF CARE TEST O RDERABLES Performing Organization Address [facility] Co de Phone Number [facility] [place] [address] * Potassium (08/01/2024 8:20 AM EST) Potassium 4.0 3.5 - 5.0 mMol/L 08/01/2024 10:17 AM EST [facility] Blood ARTERIAL BLOOD / Unknown Venipuncture / Unknown 08/01/2024 8:20 AM EST 08/01/2024 8:30 AM EST Jay Silverio MD CHEMISTRY ORDERABL ES Performing Organization Address [facility] Co de Phone Number [facility] [place] [address] * POC, GLUCOSE (08/01/2024 7:44 AM EST) [facility] Glucometer, POC 86 65 - 199 mg/dL 08/01/2024 7:44 AM EST [facility] Comment:Supplemental ranges: <140 mg/dL before meals <180 mg/dL all other times of the day. Blood CAPILLARY BLOOD / Unknown 08/01/2024 7:44 AM EST 08/01/2024 7:44 AM EST Krystal Parker MD POINT OF CARE TEST O RDKAY Performing Organization Address [facility] Co de Phone Number [facility] [place] [address] * (ABNORMAL) CBC (with Diff) (08/01/2024 4:18 [...] [facility] [place] [address] * Magnesium (08/01/2024 4:18 AM EST) Magnesium 0.74 0.69 - 1.07 mMol/L 08/01/2024 5:00 AM [facility] Blood VENOUS BLOOD SPECIMEN / Unknown Venipuncture / Unknown 08/01/2024 4:18 AM EST 08/01/2024 4:29 AM EST Bridgette Stauffer MD CHEMISTRY ORDERABLES [facility] [place] [address] * (ABNORMAL) Basic Metabolic Panel (08/01/2024 4:18 [...] CHEMISTRY ORDERABLES Performing Organization Address [facility] Co de Phone Number [facility] [place] [address] * POC, GLUCOSE (07/31/2024 8:41 PM EST) [...] O RDERABLES Performing Organization Address [facility] de Phone Number [facility] [place] [address] * CARDIAC CATHETERIZATION (07/31/2024 5:53 PM EST) Anatomical Region Laterality Modality Other Narrative 08/01/2024 12:37 PM EST ?[facility] ? Cardiac Catheterization/Intervention Report ? Patient Name: Korey Montoya Kyrie. ? Procedure Date: 07/31/2024 ? A #: [id number] ? Primary Physician: Janelle, Maldonado T ? Case #: [id number] ? File Name: [id number] ? Catheterization Order Number: [id number] ? [facility] ? Final Report [place], [place] ? Patient Name: ? Korey P. Montoya ?ID#: ?[id number] ? : ?1950 ? Procedure Date: ? July 31, 2024 ?Case #: ? [id number] ? Room: ? 1 ? Case Physician: [...] ? 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 [...] Procedure Note Maldonado Luis MD - 08/01/2024 [facility] Cardiac Catheterization/Intervention Report Patient Name: Korey MontoyaToby Procedure Date: 07/31/2024 A #: [id number] Primary Physician: Maldonado Luis Case #: [id number] File Name: [id number] Catheterization Order Number: [id number] [facility] FinalReport [place], [place] Patient Name: Korey Montoya ID#:[id number] :1950 Procedure Date: July 31, 2024 Case [...] IV. The [facility] clinical frailtyscale is 4: Vulnerable. Diagnostic [...] procedures. 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 [...] * POC, GLUCOSE (07/31/2024 11:04 AM EST) [facility] Glucometer, POC 82 65 - 199 mg/dL 07/31/2024 11:04 AM EST [facility] Comment:Supplemental ranges: <140 mg/dL before meals <180 mg/dL all other times of the day. Blood CAPILLARY BLOOD / Unknown 07/31/2024 11:04 AM EST 07/31/2024 11:04 AM EST Krystal Parker MD POINT OF CARE TEST O RDERABLES [facility] [place] [address] * (ABNORMAL) Blood Gas, Arterial POC (07/31/2024 [...] CARE TEST O RDERABLES Performing Organization Address City/[facility]/ZIP Co de Phone Number [facility] [place] [address] * POC, GLUCOSE (07/31/2024 7:47 AM EST) [facility] Glucometer, POC 82 65 - 199 mg/dL 07/31/2024 7:53 AM [facility] Comment:Supplemental ranges: <140 mg/dL before meals <180 mg/dL all other times of the day. Blood CAPILLARY BLOOD / Unknown 07/31/2024 7:47 AM EST 07/31/2024 7:53 AM EST Krystal Parker MD POINT OF CARE TEST O PEYTONERASHAY Performing Organization Address [facility] Co de Phone Number [facility] [place] [address] * (ABNORMAL) CBC (with Diff) (07/31/2024 1:08 AM EST) [facility] White Blood Cell 10.25(H) 4.00 [...] - 0.40 x10(3)/mc L 07/31/2024 1:28 AM [facility] Basophil % 0.3 % 07/31/2024 [...] MD HEMATOLOGY ORDERABLE S Performing Organization Address City/[facility]/ZIP Co de Phone Number [facility] [place] [address] * Magnesium (07/31/2024 1:08 AM EST) Magnesium 0.89 0.69 - 1.07 mMol/L 07/31/2024 1:46 AM [facility] Blood VENOUS BLOOD SPECIMEN / Unknown Venipuncture / Unknown 07/31/2024 1:08 AM EST 07/31/2024 1:18 AM EST Bridgette Stauffer MD CHEMISTRY ORDERABLES [facility] [place] [address] * (ABNORMAL) Basic Metabolic Panel (07/31/2024 1:08 [...] [facility] [place] [address] * (ABNORMAL) Hepatic Function Panel (07/31/2024 1:08 [...] [facility] [place] [address] * POC, GLUCOSE (07/30/2024 8:03 PM EST) [...] [facility] [place] [address] * Potassium (07/30/2024 8:03 PM EST) Potassium 3.8 3.5 - 5.0 mMol/L 07/30/2024 9:13 PM EST [facility] Blood VENOUS BLOOD SPECIMEN / Unknown Venipuncture / Unknown 07/30/2024 8:03 PM EST 07/30/2024 8:22 PM EST Jay Silverio MD CHEMISTRY ORDERABL ES [facility] [place] [address] * POC, GLUCOSE (07/30/2024 6:23 PM EST) Glucometer, POC 93 65 - 199 mg/dL 07/30/2024 6:24 PM EST [facility] Comment:Supplemental ranges: <140 mg/dL before meals <180 mg/dL all other times of the day. Blood CAPILLARY BLOOD / Unknown 07/30/2024 6:23 PM EST 07/30/2024 6:24 PM EST Krystal Parker MD POINT OF CARE TEST O RDERABLES Performing Organization Address City/[facility]/ZIP Co de Phone Number [facility] [place] [address] * POC, GLUCOSE (07/30/2024 5:08 PM EST) [...] [facility] [place] [address] * (ABNORMAL) Phosphorus (07/30/2024 3:08 PM EST) [facility] Phosphorus 2.1(L) 2.5 - 4.5 mg/dL 07/30/2024 3:58 PM EST [facility] Blood VENOUS BLOOD SPECIMEN / Unknown Venipuncture / Unknown 07/30/2024 3:08 PM EST 07/30/2024 3:12 PM EST Jay Silverio MD CHEMISTRY ORDERABL ES Performing Organization Address City/[facility]/ZIP Co de Phone Number [facility] [place] [address] * Magnesium (07/30/2024 3:08 PM EST) [facility] Magnesium 0.90 0.69 - 1.07 mMol/L 07/30/2024 3:58 PM EST [facility] Blood VENOUS BLOOD SPECIMEN / Unknown Venipuncture / Unknown 07/30/2024 3:08 PM EST 07/30/2024 3:12 PM EST Jay Silverio MD CHEMISTRY ORDERABL ES Performing Organization Address City/[facility]/ZIP Co de Phone Number [facility] [place] [address] * (ABNORMAL) Basic Metabolic Panel (07/30/2024 3:08 PM EST) [facility] Glucose 105 65 - 199 [...] ES [facility] [place] [address] * ECHO LMTD W CONTRAST W LMTD SPEC DOPP COLOR DOPP (07/30/2024 11:42 AM EST) Anatomical Region Laterality Modality Cardiac Other 07/30/2024 10:2 2 AM EST Narrative 07/30/2024 12:[address] [address] ? Echocardiogram Report Name: KOREY MONTOYA ? Study Date: 07/30/2024 10:22 AMBP: 124/66 mmHg : 1950 ? Height: 168 cm ? Account: [id number] Age: 74 yrs ? Weight: 65 kg Gender: Male ?BSA: 1.7 m2 Ordering Physician: Jay Silverio MD Referring Physician: CHAPARRO FERRERA Performed By: OMERO Millan Reason For Study: ST elevation myocardial infarction involving left anterior descending (LAD) coronary artery Interpreting Fellow: Ivan Hernandez. Exam Location: [facility]. Interpretation Summary Left ventricle is severely [...] Compared to the overnight study by the correctional agency director fellow the impella position is stable. 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 Procedure Limited - 19390. Image enhancement Definity was used for both [...] Note Kathleen Banda MD - 07/30/2024 [address] [place] [address] Echocardiogram Report Name: MONTOYAKOREY Study Date: 0:22 AMBP: 124/66 mmHg : 1950 Height: 168 cm Account: [id number] Age: 74 yrs Weight: 65 kg Gender: Male BSA: 1.7 m2 Ordering Physician: Jay Silverio MD Referring Physician: CHAPARRO FERRERA Performed By: OMERO Millan Reason For Study: ST elevation myocardial infarction involving leftanterior descending (LAD) coronary artery Interpreting Fellow: Ivan Hernandez. Exam Location: [facility]. Interpretation Summary Left ventricle is severely [...] Compared to the overnight study by the correctional agency director fellow the impella positionis stable. The global left ventricular systolic function has improvedpredominantly via recruitment outside the LAD territory which remains akinetic. Procedure Limited - 43321. Image enhancement Definity was used for both [...] * POC, GLUCOSE (07/30/2024 11:17 AM EST) [facility] Glucometer, POC 97 65 - 199 mg/dL 07/30/2024 11:17 AM [facility] Comment:Supplemental ranges: <140 mg/dL before meals <180 mg/dL all other times of the day. Blood CAPILLARY BLOOD / Unknown 07/30/2024 11:17 AM EST 07/30/2024 11:17 AM EST Jay Silverio MD POINT OF CARE TEST ORDERABLES [facility] [place] [address] * (ABNORMAL) Blood Gas, Arterial POC (07/30/2024 8:16 AM EST) [facility] Signature pH, Arterial 7.44 7.35 - 7.45 07/30/2024 8:17 AM [facility] PCO2, Arterial 29(L) 35 - [...] [facility] [place] [address] * (ABNORMAL) Troponin - Single (07/30/2024 8:09 [...] in the [facility] Laboratory Test Catalog Troponin - [email or web address]/catalogs/565/files/67867 Reference: [place] Definition of Myocardial Infarction. Journal of the [place] College [employer] 2018;72:3681-2236 Blood VENOUS BLOOD SPECIMEN / Unknown Venipuncture / Unknown 07/30/2024 8:09 AM EST 07/30/2024 8:26 AM EST Jay Silverio MD CHEMISTRY ORDERABL ES [facility] [place] [address] * POC, GLUCOSE (07/30/2024 7:40 AM EST) Glucometer, POC 111 65 - 199 mg/dL 07/30/2024 7:40 AM [facility] Comment:Supplemental ranges: <140 mg/dL before meals <180 mg/dL all other times of the day. Blood CAPILLARY BLOOD / Unknown 07/30/2024 7:40 AM EST 07/30/2024 7:40 AM EST Jay Silverio MD POINT OF CARE TEST ORDERABLES Performing Organization Address City/State/[facility] Co de Phone Number [facility] [place] [address] * (ABNORMAL) CBC (with Diff) (07/30/2024 2:11 [...] Immature Gran % 0.4 % 2:33 AM [facility] Immature Gran Absolute 0.05(H) 0.00 - 0.04 x10(3)/mc L 07/30/2024 2:33 AM EST [facility] Blood VENOUS BLOOD SPECIMEN / Unknown Venipuncture / Unknown 07/30/2024 2:11 AM EST 07/30/2024 2:22 AM EST Bridgette Stauffer MD HEMATOLOGY ORDERABLE S Performing Organization Address [facility] Co de Phone Number [facility] [place] [address] * Magnesium (07/30/2024 2:11 AM EST) Magnesium 1.01 0.69 - 1.07 mMol/L 07/30/2024 2:51 AM [facility] Blood VENOUS BLOOD SPECIMEN / Unknown Venipuncture / Unknown 07/30/2024 2:11 AM EST 07/30/2024 2:22 AM EST Bridgette Stauffer MD CHEMISTRY ORDERABLES Performing Organization Address [facility] Co de Phone Number [facility] [place] [address] * (ABNORMAL) Basic Metabolic Panel (07/30/2024 2:11 [...] [facility] [place] [address] * (ABNORMAL) Cooximetry, POC (07/30/2024 1:00 AM [...] OF CARE TEST ORDERABLES Performing Organization Address City/State/[facility] Co de Phone Number [facility] [place] [address] * (ABNORMAL) Blood Gas, Arterial POC (07/30/2024 [...] [facility] [place] [address] * (ABNORMAL) Troponin - Single (07/29/2024 10:31 [...] in the [facility] Laboratory Test Catalog Troponin - https://[facility].testcatalog.org/catalogs/565/files/96724 Reference: [place] Definition of Myocardial Infarction. Journal of the [employer] College of Cardiology 2018;72:6368-9514 Blood VENOUS BLOOD SPECIMEN / Unknown Venipuncture / Unknown 07/29/2024 10:31 PM EST 07/29/2024 10:36 PM EST Yrn Ward MD CHEMISTRY ORDERABL ES Performing Organization Address City/[facility]/ZIP Co de Phone Number [facility] [place] [address] * Potassium (07/29/2024 8:11 PM EST) Potassium 4.1 3.5 - 5.0 mMol/L 07/29/2024 8:52 PM EST [facility] Blood VENOUS BLOOD SPECIMEN / Unknown Venipuncture / Unknown 07/29/2024 8:11 PM EST 07/29/2024 8:16 PM EST Jay Silverio MD CHEMISTRY ORDERABL ES [facility] [place] [address] * (ABNORMAL) Troponin - Single (07/29/2024 8:11 PM EST) Pathologist [facility] Troponin-T, High Sensitivity >10,000(H ) <=22 ng/L [...] in the [facility] Laboratory Test Catalog Troponin - https://[email or web address]/catalogs/565/files/41816 Reference: [place] Definition of Myocardial Infarction. Journal of the [place] College of Cardiology 2018;72:0382-9457 Blood VENOUS BLOOD SPECIMEN / Unknown Venipuncture / Unknown 07/29/2024 8:11 PM EST 07/29/2024 8:16 PM EST Jay Silverio MD CHEMISTRY ORDERABL ES [facility] [place] [address] * (ABNORMAL) Phosphorus (07/29/2024 8:11 PM EST) Pathologist [facility] Phosphorus 2.1(L) 2.5 - 4.5 mg/dL 07/29/2024 8:52 PM EST [facility] Blood VENOUS BLOOD SPECIMEN / Unknown Venipuncture / Unknown 07/29/2024 8:11 PM EST 07/29/2024 8:16 PM EST Jay Silverio MD CHEMISTRY ORDERABL ES Performing Organization Address [facility] Co de Phone Number [facility] [place] [address] * POC, GLUCOSE (07/29/2024 8:09 PM EST) Glucometer, POC 142 65 - 199 mg/dL 07/29/2024 8:09 PM EST [facility] Comment:Supplemental ranges: <140 mg/dL before meals <180 mg/dL all other times of the day. Blood CAPILLARY BLOOD / Unknown 07/29/2024 8:09 PM EST 07/29/2024 8:09 PM EST Jay Silverio MD POINT OF CARE TEST ORDERABLES Performing Organization Address [facility] Co de Phone Number [facility] [place] [address] * ABORH RECHECK (07/29/2024 6:43 PM EST) ABORH Recheck AB POSITIVE 07/29/2024 10:13 PM EST [facility] Blood VENOUS BLOOD SPECIMEN / Unknown Venipuncture / Unknown 07/29/2024 6:43 PM EST 07/29/2024 7:15 PM EST Jay Silverio MD BLOOD BANK LAB ORD ERABLES Performing Organization Address City/[facility] Co de Phone Number [facility] [place] [address] * POC, GLUCOSE (07/29/2024 5:57 PM EST) [...] [facility] [place] [address] * Type and screen ([facility]/[place]) (07/29/2024 5:56 PM EST) [facility] ABORH Type AB POSITIVE 07/29/2024 9:44 PM EST [facility] PATIENT HISTORY Not Found 07/29/2024 9:44 PM EST [facility] Expires at [id number] on: 08/01/2024 07/29/2024 9:44 PM EST [facility] ANTIBODY SCREEN AUTOMATED Negative 07/29/2024 9:44 PM EST [facility] T&S only valid at [facility] 07/29/2024 9:44 PM EST [facility] Blood VENOUS BLOOD SPECIMEN / Unknown Venipuncture / Unknown 07/29/2024 5:56 PM EST 07/29/2024 6:07 PM EST Narrative [facility] - 07/29/2024 9:44 PM EST This Type and Screen result is only valid at the [facility] Jay Silverio MD BLOOD BANK LAB ORD ERABLES Performing Organization Address City/[facility]/ZIP Co de Phone Number [facility] [place] [address] * (ABNORMAL) Troponin - Single (07/29/2024 4:52 PM EST) [facility] Troponin-T, High Sensitivity >10,000(H ) [...] in the [facility] Laboratory Test Catalog Troponin - https://[email or web address]/catalogs/565/files/79654 Reference: [place] Definition of Myocardial Infarction. Journal of the [place] College of Cardiology 2018;72:3138-1699 Blood VENOUS BLOOD SPECIMEN / Unknown Venipuncture / Unknown 07/29/2024 4:52 PM EST 07/29/2024 4:57 PM EST Jay Silverio MD CHEMISTRY ORDERABL ES [facility] [place] [address] * EKG 12 Lead (07/29/2024 4:21 PM EST) Ventricular rate 72 BPM MUSE SYSTEM Atrial Rate 72 BPM MUSE SYSTEM P-R Interval 168 ms MUSE SYSTEM QRS Duration 82 ms MUSE SYSTEM Q-T Interval 392 ms MUSE SYSTEM QTC Calculated (Bezet) 429 ms MUSE SYSTEM Calculated P Ball 71 degrees MUSE SYSTEM Calculated R Ball 77 degrees MUSE SYSTEM Calculated T Ball 28 degrees MUSE SYSTEM INTERPRETATION Sinus rhythm [...] [facility] [place] [address] * POC, GLUCOSE (07/29/2024 4:19 PM EST) [...] [facility] [place] [address] * Blood culture (07/29/2024 4:08 PM EST) Blood Culture No growth at 120 hours 08/03/2024 5:01 PM EST [facility] Blood VENOUS BLOOD SPECIMEN / Unknown Venipuncture / Unknown 07/29/2024 4:08 PM EST 07/29/2024 4:15 PM EST Jay Silverio MD MICROBIOLOGY - BLO OD ORDERABLES Performing Organization Address [facility] Co de Phone Number [facility] [place] [address] * Blood culture (07/29/2024 4:08 PM EST) Blood Culture No growth at 120 hours 08/03/2024 5:01 PM EST [facility] Blood VENOUS BLOOD SPECIMEN / Unknown Venipuncture / Unknown 07/29/2024 4:08 PM EST 07/29/2024 4:26 PM EST Jay Silverio MD MICROBIOLOGY - BLO OD ORDERABLES Performing Organization Address [facility] de Phone Number [facility] [place] [address] * XR Chest One View (07/29/2024 2:30 PM EST) WORKSTATION ID [id number] DH RAD Anatomical Region Laterality Modality Chest [...] questions please contact the health care management assistant that requested your imaging first. ? Electronically signed by: Chris Candelaria MD, [facility] ([phone]), at 07/29/2024 3:21 PM Narrative 07/29/2024 3:21 [...] have questions please contactthe health care management assistant that requested your imaging first. Electronically signed by: Chris Candelaria MD, [facility]([phone]), at 07/29/2024 3:21 PM Vahe Marvin MD [...] [facility] [place] [address] * (ABNORMAL) Prothrombin Time (07/29/2024 2:03 PM EST) [facility] Prothrombin Time 14.2(H) 9.4 - [...] [facility] [place] [address] * CRP, acute inflammation (07/29/2024 2:03 PM EST) Pathologist [facility] C-Reactive Protein <3.0 <=4.9 mg/L 07/29/2024 2:52 PM EST [facility] Blood VENOUS BLOOD SPECIMEN / Unknown Venipuncture / Unknown 07/29/2024 2:03 PM EST 07/29/2024 2:14 PM EST Vahe Marvin MD CHEMISTRY ORDERABLES [facility] [place] [address] * Lipid Panel (Reflex Direct LDL) (07/29/2024 [...] mg/dL LDL Cholesterol 64 mg/dL 2:52 PM [facility] Comment: [...] Guidelines (most recently Rolf et al. [facility] 06/15/22): * For individuals with [...] [facility] [place] [address] * TSH [place] (07/29/2024 2:03 PM EST) Pathologist [facility] Thyroid Stimulating Hormone 0.70 0.27 - 4.20 mcIU/mL 07/29/2024 2:52 PM EST [facility] Blood VENOUS BLOOD SPECIMEN / Unknown Venipuncture / Unknown 07/29/2024 2:03 PM EST 07/29/2024 2:14 PM EST Vahe Marvin MD CHEMISTRY ORDERABLES Performing Organization Address City/[facility] Co de Phone Number [facility] [place] [address] * Hemoglobin A1c (07/29/2024 2:03 PM EST) Pathologist [facility] Hemoglobin A1c 5.3 4.3 - 5.6 % [...] red blood cell turnover may not be risk control representative of glycemic control. Reference Interval: [...] into estimated average glucose values. ??Diabetes Care 2008:31(8):8490-2846. Additional resources are available on the ADA website (diabetes.org). Vahe Marvin MD CHEMISTRY ORDERABLES [facility] [place] [address] * (ABNORMAL) CBC (with Diff) (07/29/2024 2:03 [...] [facility] [place] [address] * Phosphorus (07/29/2024 2:03 PM EST) Phosphorus 2.5 2.5 - 4.5 mg/dL 07/29/2024 2:52 PM EST [facility] Blood VENOUS BLOOD SPECIMEN / Unknown Venipuncture / Unknown 07/29/2024 2:03 PM EST 07/29/2024 2:14 PM EST Vahe Marvin MD CHEMISTRY ORDERABLES Performing Organization Address City/[facility]/ZIP Co de Phone Number [facility] [place] [address] * Magnesium (07/29/2024 2:03 PM EST) Magnesium 0.70 0.69 - 1.07 mMol/L 07/29/2024 2:52 PM EST [facility] Blood VENOUS BLOOD SPECIMEN / Unknown Venipuncture / Unknown 07/29/2024 2:03 PM EST 07/29/2024 2:14 PM EST Vahe Marvin MD CHEMISTRY ORDERABLES [facility] [place] [address] * (ABNORMAL) Comprehensive metabolic panel (07/29/2024 2:03 [...] 91 mL/min/1. 73 m?? 07/29/2024 3:11 PM [facility] Comment: This [...] [facility] [place] [address] * (ABNORMAL) Troponin - Single (07/29/2024 2:03 PM EST) Pathologist [facility] Troponin-T, High Sensitivity >10,000(H ) <=22 ng/L [...] in the [facility] Laboratory Test Catalog Troponin - [email or web address].org/catalogs/565/files/80184 Reference: Fourth [place] Definition of Myocardial Infarction. Journal of the [place] College of Cardiology 2018;72:0227-0529 Blood VENOUS BLOOD SPECIMEN / Unknown Venipuncture / Unknown 07/29/2024 2:03 PM EST 07/29/2024 2:14 PM EST Vahe Marvin MD CHEMISTRY ORDERABLES [facility] [place] [address] * (ABNORMAL) Blood Gas, Venous POC (07/29/2024 [...] Venous 0.3 <=1.5 % 07/29/2024 2:02 PM [facility] Sodium, Venous 137 135 - [...] City/State/[facility] Co de Phone Number [facility] [place] [address] * CARDIAC CATHETERIZATION (07/29/2024 1:20 PM EST) Anatomical Region Laterality Modality Other Narrative 07/29/2024 2:02 PM EST ?[facility] ? Cardiac Catheterization/Intervention Report ? Patient Name: Korey Montoya Kyrie. ? Procedure Date: 07/29/2024 ? A #: [id number] ? Primary Physician: Vahe Marvin ? Case #: [id number] ? File Name: [id number] ? Catheterization Order Number: [id number] ? [facility] ? Final Report [place], [place] ? Patient Name: ? Korey P. Jan ?ID#: ?[id number] ? : ?1950 ? Procedure Date: ? July 29, 2024 ?Case #: ? [id number] ? Room: ? 5 ? Case Physician: [...] procedure was Emergent. The indication for ?the cath laboratory technician visit is ACS less than [...] 3.5 guiding catheter and a 3.5 Fr [employer] [place] [address] ??20 Mhz using ?Manual pullback. ??Imaging [...] A premounted 3.00 x 22 mm [place] (LOW) was deployed ? with a maximum [...] atmospheres. ??A premounted 3.00 x 08 mm [place] (LOW) ? was deployed with a maximum [...] dose administered prior to arrival in the cath laboratory technician. ?Recommended anti-platelet/anti-thrombotic regimen: ?Start aspirin 81 mg daily now and continue for 12 months then stop. ?Start clopidogrel 75 mg daily now and continue for indefinitely. ?These recommendations are made at the time of the intervention. Patient ?and provider preferences or a changing clinical situation may require ?modification of this regimen. Consult [facility] Interventional Cardiology for ?questions. ?The 1 year [...] able ?to start weaning his inotropes/vasopressors. A Adah Colette catheter was ?placed demonstrating improvement in [...] ventricular assist device insertion, right heart ?catheterization, Adah (flow directed cath) insertion, access site ?angiography, vascular ultrasound, venous line / sheath insert and vascular ?closure device. ? Vahe Marvin M.D. ? Electronically Signed by: Vahe Marvin M.D. ? Report Finalized: 07/29/2024 ??13:55 ? Report Last Ammended: 09/20/2024 ??15:21 ? Procedure Note Vahe Marvin MD - 09/20/2024 [facility] Cardiac Catheterization/Intervention Report Patient Name: Korey Montoya Procedure Date: 07/29/2024 A #: [id number] Primary Physician: Vahe Marvin Case #: [id number] File Name: [id number] Catheterization Order Number: [id number] [facility] FinalReport [place], [place] Patient Name: Korey Montoya ID#:[id number] :1950 Procedure Date: July 29, 2024 Case [...] IV. The [facility] clinical frailtyscale is 4: Vulnerable. Diagnostic Tests: Electrocardiography: EKG was assessed by ECG. EKG was Abnormal. EKG showed STDeviation >= 0.5 mm. Medications Prior to Procedure: Angiotensin II Receptor Elvis and Statin. Indications for Diagnostic Cath: The priority of the diagnostic procedure was Emergent. Theindication for the cath laboratory technician visit is ACS less than [...] 3.5 guiding catheter and a 3.5 Fr [facility] [address] 20 Mhzusing Manual pullback. Imaging was [...] The priority for the procedure was Emergent.The [facility] indication for the procedure was STEMI-Immediate [...] The lesion was predilated with a 2.00mm [id number] MM balloon with a maximum inflation pressure of 12atmospheres. A premounted 3.00 x 22 mm [place] (LOW) wasdeployed with a maximum inflation pressure [...] A premounted 3.00 x 08 mm [place](LOW) was deployed with a maximum inflation pressure [...] dose administered prior to arrival in the cath laboratory technician. Recommended anti-platelet/anti-thrombotic regimen: Start aspirin 81 mg daily now and continue for 12 months then stop. Start clopidogrel 75 mg daily now and continue for indefinitely. These recommendations are made at the time of the intervention.Patient and provider preferences or a changing clinical situation mayrequire modification of this regimen. Consult [facility] Interventional Cardiologyfor questions. The 1 year bleeding [...] wereable to start weaning his inotropes/vasopressors. A Adah Colette catheterwas placed demonstrating improvement in his [...] ventricular assist device insertion, right heart catheterization, Adah (flow directed cath) insertion, access site angiography, [...] [facility] [place] [address] * (ABNORMAL) BLOOD GAS, POC (07/29/2024 12:12 [...] POINT OF CARE TEST O RDERABLES [facility] [address] [place] [address] documented in this encounter Visit Diagnoses Not [...] 0934 (Given - Provider: Tonya Watson, RNEEA) metoprolol tartrate (Lopressor) tablet 12.5 mg (CANCELED) [...] Routine documented in this encounter Care Teams Carbon Accountant Relationship Specialty Start Date End Date Alexia Mtz, FREDRICK [address] [place] [address] PCP - General Family Medicine 07/30/24 documented as of this encounter
--- OUTSIDE RECORDS SUMMARY | 2024-10-10 10:16 | XMS_ITS | Encounter Summary ---
Author Organization [facility] Address [facility] [place] [address] Care Team Providers Care Account Resolution Specialist Name Role Phone Yoel Artis FREDRICK Primary Care Provider [phone] Reason for Visit * Auth/Cert (Routine) Specialty Diagnoses / Procedures Referred By Theodore t Referred To Contact Diagnoses AIRO Procedures MS ROTARY WING AIR MILEAGE MS ROTARY WING AIR TRANSPORT AIRO [facility] Referral ID Status Reason Start Date Expiration Date Visits Re quested Visits Authorized [id number] 1 1 Encounter Details Date Type Department Care Team (Latest Contact Info) Description 07/29/2024 6:32 PM EST - 07/29/2024 11:59 PM [facility] Hospital Encounter [facility] at [address] [phone] Arvin Becerra MD [facility] [place] [address] Discharge Disposition: Home Social History Tobacco Use [...] in a correction (including now)? No 07/30/2024 DH IPV Inpatient [...] evening. 04/17/2023 08/04/2024 nitroGLYcerin (NITROLINGUAL) 400 mcg/spray [place], Non-AerosolIndications: Proctalgia fugax,Fecal smearing,Constipation, unspecified constipation type 1 spray to anus for proctalgia fugax as needed, not to exceed once daily 12 g 06/01/2023 08/04/2024 documented as of this encounter Plan of Treatment Upcoming Encounters Date Type Department Care Team (Late st Contact Info) Description 10/31/2024 9:30 AM EST Appointment Non-[place] [address] Mushtaq Mruphy APRN 10/31/2024 11:00 AM EST Office Visit Cardiology at [address] [address] Mushtaq Murphy APRN documented as of this encounter Visit Diagnoses Not on filedocumented in this encounter Care Teams Account Resolution Specialist Relationship Specialty Start Date End Date Yoel Artis APRN [address] [place] [address] PCP - General Internal Medicine 11/18/22 07/29/24 documented as of this encounter
--- OUTSIDE RECORDS SUMMARY | 2024-10-10 10:17 | XMS_ITS | Encounter Summary ---
[place] [address] Care Team Providers Care Cement Worker Name Role Phone Anibal Mtz MD Primary Care Provider [phone] Encounter Details Date Type Department Care Team (Late st Contact Info) Description 01/18/2019 3:00 PM EDT Interpretation Only Cardiology at [address] [phone] Alberto Powell Jr., MD Dizziness Social History [...] 9:30 AM EST Appointment Non[place] [address] Mushtaq Murphy APRN 10/31/2024 11:00 AM EST Office Visit Cardiology at [address] [address] Mushtaq Murphy, FREDRICK documented as [...] giddiness documented in this encounter Care Teams Cement Worker Relationship Specialty Start Date End Date Anibal Mtz MD [address] [place] [address] PCP - General Family Medicine 01/17/19 11/17/22 documented as of this encounter
--- OUTSIDE RECORDS SUMMARY | 2024-10-10 10:17 | XMS_ITS | Encounter Summary ---
[place] [address] Care Team Providers Care Drill Doctor Name Role Phone Yoel Artis FREDRICK Primary Care Provider [phone] Encounter Details Date Type Department Care Team (Late st Contact Info) Description 01/16/2024 Interpretation Only [facility] [address] [place] [address] hCaparro Montana MD [address] [place] [address] Social History Tobacco Use Types Packs/Day Years [...] 9:30 AM EST Appointment Non[place] [address] Mushtaq Murphy APRN 10/31/2024 11:00 AM EST Office Visit Cardiology at [address] [address] Mushtaq Murphy, BULL GANG SUPERVISOR documented as of this encounter Procedures Procedure Name Priority Date/Time Associated Diagnosis Comments XR CHEST ONE VIEW STAT 01/16/2024 4:0 4 PM EDT documented in this encounter Results * XR Chest One View (01/16/2024 4:04 PM EDT) PT CLASS E RAD ADMITDTTM [id number] RAD PT RAD INFO [id number]^Haniss henry^Chaparro RAD EXAM DESC XCXR1^XR Chest 1 View^[facility] WORKSTATION ID [id number] RAD Anatomical Region Laterality Modality Chest N/A [...] signed by: Alexey Winslow MD, [facility]([phone]), at 01/16/2024 4:08 PM Chaparro Montana MD IMG DX ORDERABLES documented in this encounter Visit Diagnoses Not on filedocumented in this encounter Care Teams Drill Doctor Relationship Specialty Start Date End Date Yoel Artis APRN [address] [place] [address] PCP - General Internal Medicine 11/18/22 07/29/24 documented as of this encounter
--- OUTSIDE RECORDS SUMMARY | 2024-10-10 10:17 | XMS_ITS | Encounter Summary ---
[place] [address] Care Team Providers Care Die Cutter Diamond Name Role Phone Alexia Mtz SUPERVISOR OF GUIDANCE AND TESTING Primary Care Provider [phone] Encounter Details Date Type Department Care Team (Late st Contact Info) Description 06/25/2024 Lab [place] [address] Aubrey Cali MD [address] [place] [address] Pyuria Social History Tobacco Use Types Packs/Day [...] 9:30 AM EST Appointment Non-[place] [address] Mushtaq Murphy APRN 10/31/2024 11:00 AM EST Office Visit Cardiology at [address] [phone] Mushtaq Murphy APRN documented as of this encounter Procedures Procedure Name Priority Date/Time Associated Diagnosis Comments URINE CULTURE Routine 06/25/2024 11:55 AM EDT Pyuria documented in this encounter Results * Urine culture (06/25/2024 11:55 AM EDT) Urine Culture No growth 06/26/2024 12:22 PM EDT [facility] Urine URINE SPECIMEN OBTAINED BY CLEAN CATCH PROCEDURE / Unknown 06/25/2024 11:55 AM EDT 06/25/2024 5:18 PM EDT Aubrey Cali MD MICROBIOLOGY - GENER AL ORDERABLES [facility] [place] [address] documented in this encounter Visit Diagnoses Diagnosis Pyuria Other nonspecific finding on examination of urine documented in this encounter Care Teams Die Cutter Diamond Relationship Specialty Start Date End Date Alexia Mtz APRN [address] [place] [address] PCP - General Family Medicine 07/30/24 documented as of this encounter
--- OUTSIDE RECORDS SUMMARY | 2024-10-10 10:17 | XMS_ITS | Encounter Summary ---
[place] [address] Care Team Providers Care Risk Control Manager Name Role Phone Yoel Artis APRN Primary Care Provider [phone] Reason for Referral * Consultation (Routine) - Closed Specialty Diagnoses / Procedures Referred By Theodore muro Referred To Contact Gastroenterology Diagnoses Anal spasm anal spasm Yoel Artis APRN [address] [place] [address] [facility] [place] [address] Referral ID Status Reason Start Date Expiration Date V isits Requested Visits Authorized [id number] Closed Consult, Test & Treat PCP Updated and/or Approved 05/26/2023 05/25/2024 6 6 Encounter Details Date Type Department Care Team (Late st Contact Info) Description 05/26/2023 Transcribe Orders eDH Incoming Referrals [phone] Yoel Artis APRN [address] [place] [address] Anal spasm Social History Tobacco [...] 9:30 AM EST Appointment Non-[place]vasive [place] [address] Mushtaq Murphy APRN 10/31/2024 11:00 AM EST Office Visit Cardiology at [address] [phone] Mushtaq Murphy, ASSEMBLY LINE DRIVER Scheduled Referrals Name Type Priority Associated Diagnoses Order Schedule Referral to Gastroenterology Outpatient Referral Routine Anal spasm Ordered: 05/26/2023 documented as of this encounter Visit Diagnoses Diagnosis Anal spasm documented in this encounter Care Teams Risk Control Manager Relationship Specialty Start Date End Date Yoel Artis APRN [address] [place] [address] PCP - General Internal Medicine 11/18/22 07/29/24 documented as of this encounter
--- OUTSIDE RECORDS SUMMARY | 2024-10-10 10:17 | XMS_ITS | Encounter Summary ---
[place] [address] Care Team Providers Care Degreasing Solution Reclaimer Name Role Phone Yoel Artis APRN Primary Care Provider [phone] Reason for Referral * Consultation (Routine) - Closed Specialty Diagnoses / Procedures Referred By Theodore muro Referred To Contact Gastroenterology Diagnoses Anal spasm motility- anal spasms Yoel Artis APRN [address] [place] [address] [facility] [address] [place] [address] Referral ID Status Reason Start Date Expiration Date V isits Requested Visits Authorized [id number] Closed Consult, Test & Treat PCP Updated and/or Approved 11/18/2022 11/18/2023 6 6 Encounter Details Date Type Department Care Team (Late st Contact Info) Description 11/18/2022 Transcribe Orders eDH Incoming Referrals [phone] Yoel Artis APRN [address] [place] [address] Anal spasm Social History Tobacco [...] 9:30 AM EST Appointment [place] [address] Mushtaq Murphy, FREDRICK 10/31/2024 11:00 AM EST Office Visit Cardiology at [address] [address] Mushtaq Murphy, MANUFACTURING ENGINEERING PROFESSOR Scheduled Referrals Name Type Priority Associated Diagnoses Order Schedule Referral to Gastroenterology Outpatient Referral Routine Anal spasm Ordered: 11/18/2022 documented as of this encounter Visit Diagnoses Diagnosis Anal spasm documented in this encounter Care Teams Degreasing Solution Reclaimer Relationship Specialty Start Date End Date Yoel Artis APRN [address] [place] [address] PCP - General Internal Medicine 11/18/22 07/29/24 documented as of this encounter
--- OUTSIDE RECORDS SUMMARY | 2024-10-10 10:17 | XMS_ITS | Encounter Summary ---
Author Organization [facility] [place] [address] Care Team Providers Care Etl Consultant Name Role Phone Yoel Artis APRN Primary Care Provider [phone] Reason for Referral * Consultation (Routine) - Closed Specialty Diagnoses / Procedures Referred By Theodore muro Referred To Contact Gastroenterology Diagnoses Proctalgia fugax Fecal smearing Constipation, unspecified constipation type group Yoel Dangelo APRN [facility] [place] [address] Paulette Glynn, PhD [facility] [address] Referral ID Status Reason Start Date Expiration Date V isits Requested Visits Authorized [id number] Closed Consult, Test & Treat 06/01/2023 05/31/2024 1 1 Reason for Visit * Consultation (Routine) - Closed Specialty Diagnoses / Procedures Referred By Theodore muro Referred To Contact Gastroenterology Diagnoses Anal spasm motility- anal spasms Yoel Artis APRN [address] [place] [address] [facility] [place] [address] [address] Referral ID Status Reason Start Date Expiration Date V isits Requested Visits Authorized [id number] Closed Consult, Test & Treat PCP Updated and/or Approved 11/18/2022 11/18/2023 6 6 Encounter Details Date Type Department Care Team (Latest Contact Info) Description 06/01/2023 8:00 AM EDT TH Visit (TeleHealth) [place] [address] Yoel Dangelo, BOAT PATCHER PLASTIC [facility] [place] [address] Proctalgia fugax; Fecal smearing; Constipation, unspecified constipation [...] hear from us within 1 week: Clinic [phone] Motility Lab scheduling [phone] Endoscopy scheduling- [phone] Diagnostics: -Colonoscopy for rectal pain -Anorectal manometry [...] [facility] Behavioral health website at: [email or web address]. Our hope is that through these classes, [...] the [facility] billing office ([email or web address]). Your insurance company may request a CPT code if you ask about coverage. [place] [address]. If you're interested in attending any of these classes or workshops, please reach out to our scheduling team via [facility] or phone ([phone]). You should start a fiber supplement if [...] common type of gastrointestinal disorders in the [facility] The most common functional bowel disorder in the [facility] is irritable bowel syndrome (IBS) Irritable [...] what is the impact? 15-20% of general [place] population has IBS or FD or both 2nd most common cause for lost work days (after common cold) in [place] Estimated $30 billion dollar cost to [place] economy per year These disorders can have [...] with immediate onset of symptoms after infection); mcfp symptoms are expected in most patients however [...] to you primary care provider and/or local director of admissions and share this document. Treatment of functional [...] - this approach benefits most patients OTC (kuvs-mil-eksqdqs) medications can be used for ongoing bothersome [...] All-Bran psyllium buds, Metamucil, Konsyl, bulk psyllium ([employer] and [employer] stores) Specifically we recommend starting Metamucil or [...] but convincing medical evidence is still lacking Dxcm-tyv-xavbysz supplements including probiotics are not typically evaluated [...] to decrease antibiotic-associated diarrhea and antibiotic-related infections Uzgj-rbu-Jssrueg Medications for Functional Gut Disorders Based on [...] a stool softener that is safe for mcfp usage (no risk of dependency) andthe dosage [...] (GERD) Often a combination of anti-nausea medications (oucp-wrz-bjhrmnz or prescription) works better thanhigh doses of [...] for misuse/misinterpretation of this information Patient Resources [employer] https://www.gastro.org/practice-guidance/fj-eqrtjff-yfcvkp/ topic/ithyotnon-lapep-uihochnz-ibs Badgut.org https://badgut.org/information-centre/j-f-cyarasgta-topics/ibs/ AboutIBS.org https://www.aboutibs.org/ Uptodate.com https://www.uptodate.com/contents/gldsmzxvq-elieu-ekmlprze-vhaybo-cee-ejfkku documented in this encounter Progress Notes * [...] above. The patient was located in [place] at the time of their visit. TIME SPENT WITH PATIENT Time spent reviewing records prior to this encounter on day of appointment: 2 minutes Time spent during encounter with patient including counselin minutes Time spent documenting encounter after office visit: 7 minutes Yoel Dangelo APRN [facility] [place] [address] documented in this encounter Plan of Treatment Upcoming Encounters Date Type Department Care Team (Late st Contact Info) Description 10/31/2024 9:30 AM EST Appointment Non[place] [address] Mushtaq Murphy APRN 10/31/2024 11:00 AM EST Office Visit Cardiology at [address] [address] Mushtaq Murphy APRN Scheduled Orders Name Type [...] type documented in this encounter Care Teams Etl Consultant Relationship Specialty Start Date End Date Yoel Artis APRN [address] [place] [address] PCP - General Internal Medicine 11/18/22 07/29/24 documented as of this encounter
--- OUTSIDE RECORDS SUMMARY | 2024-10-10 10:17 | XMS_ITS | Encounter Summary ---
Author Organization [place] [address] Care Team Providers Care Mechanic Welder Truck Driver Name Role Phone Yoel Artis Ute ALCALA Primary Care Provider Encounter Details Date Type Department Care Team (Late st Contact Info) Description 01/16/2024 5:46 PM EDT - 01/16/2024 11:59 PM EDT Hospital Encounter [facility] [address] [place] [address] Chaparro Montana MD [address] [place] [address] Discharge Disposition: Home Social History Tobacco Use [...] evening. 04/17/2023 08/04/2024 nitroGLYcerin (NITROLINGUAL) 400 mcg/spray [place], Non-AerosolIndications:P roctalgia fugax,Fecal smearing,Constipation, unspecified constipation type 1 spray to anus for proctalgia fugax as needed, not to exceed once daily 12 g 06/01/2023 08/04/2024 documented as of this encounter Plan of Treatment Upcoming Encounters Date Type Department Care Team (Late st Contact Info) Description 10/31/2024 9:30 AM EST Appointment Non[place] [address] Mushtaq Murphy, FREDRICK 10/31/2024 11:00 AM EST Office Visit Cardiology at [address] [address] Mushtaq Murphy, FREDRICK documented as of this encounter Procedures Procedure Name Priority Date/Time Associated Diagnosis Comments URINE CULTURE Routine 01/16/2024 4:00 PM EDT documented in this encounter Results * Urine culture (01/16/2024 4:00 PM EDT) Urine Culture No growth (Less than 1,000 cfu/ml). [facility] Urine 01/16/2024 4:00 PM EDT 01/16/2024 10:36 PM EDT Narrative Resulting Agency Comment Spec In Lab Chaparro Monatna MD MICROBIOLOGY - [facility] ORDERABLES [facility] [place] [address] documented in this encounter Visit Diagnoses Not on filedocumented in this encounter Care Teams Mechanic Welder Truck Driver Relationship Specialty Start Date End Date Yoel Artis APRN [address] [place] [address] PCP - General Internal Medicine 11/18/22 07/29/24 documented as of this encounter
--- OUTSIDE RECORDS SUMMARY | 2024-10-10 10:17 | XMS_ITS | Encounter Summary ---
[place] [address] Care Team Providers Care Color Checker Name Role Phone Yoel Artis FREDRICK Primary Care Provider [phone] Encounter Details Date Type Department Care Team (Late st Contact Info) Description 07/28/2024 Interpretation Only [address] [phone] Quinten Coffey MD [address] [place] [address] Social History Tobacco Use Types Packs/Day Years [...] EST Appointment Non-[place] [address] Mushtaq Murphy APRN 10/31/2024 11:00 AM EST Office Visit Cardiology at [address] [address] Mushtaq Murphy, COIN TELLER documented as of this encounter Procedures Procedure Name Priority Date/Time Associated Diagnosis Comments XR CHEST ONE VIEW STAT 07/28/2024 10: 22 AM EST documented in this encounter Results * XR Chest One View (07/28/2024 10:22 AM EST) PT CLASS E RAD ADMITDTTM [id number] RAD PT RAD INFO [id number]^Potter ^Quinten RAD EXAM DESC XCXR1^XR Chest 1 View^RIS [facility] WORKSTATION ID [id number] RAD Anatomical Region Laterality [...] questions please contact the health child care attendant that requested your imaging first. [...] have questions please contactthe health child care attendant that requested your imaging first. Quinten Coffey MD IMG DX ORDERABLES documented in this encounter Visit Diagnoses Not on filedocumented in this encounter Care Teams Color Checker Relationship Specialty Start Date End Date Yoel Artis APRN [address] [place] [address] PCP - General Internal Medicine 11/18/22 07/29/24 documented as of this encounter
--- OUTSIDE RECORDS SUMMARY | 2024-10-10 10:17 | XMS_ITS | Encounter Summary ---
Author Organization [facility] [place] [address] Care Team Providers Care Electroless Plater Name Role Phone Yoel Artis Ute ALCALA Primary Care Provider [phone] Encounter Details Date Type Department Care Team (Late st Contact Info) Description 07/29/2024 Interpretation Only [facility] [address] [place] [phone] Chaparro Montana MD [address] [place] [address] Social History Tobacco Use Types Packs/Day Years Used Date Smoking Tobacco: Former Cigarettes Smokeless Tobacco: Never Alcohol Use Standard Drinks/Week Comments Not Currently 0 (1 standard drink = 0.6 oz pur e alcohol) [facility] Utilities Answer Date Recorded In the past 12 months has [employer], gas, oil, or water [email or web address] threatened to shut off services in your [...] 9:30 AM EST Appointment Non-Invasive [place] [address] Mushtaq Murphy, WELL LOGGING OPERATOR MUD ANALYSIS 10/31/2024 11:00 AM EST Office Visit Cardiology at [address] [address] Mushtaq Murphy, WELL LOGGING OPERATOR MUD ANALYSIS documented as of this encounter Procedures Procedure Name Priority Date/Time Associated Diagnosis Comments XR CHEST ONE VIEW STAT 07/29/2024 10: 50 AM EST documented in this encounter Results * XR Chest One View (07/29/2024 10:50 AM EST) PT CLASS E RAD ADMITDTTM [id number] RAD PT RAD MD INFO [id number]^Jordy figueroa^Chaparro RAD EXAM DESC XCXR1^XR Chest 1 [...] on filedocumented in this encounter Care Teams Electroless Plater Relationship Specialty Start Date End Date Yoel Artis APRN [address] [place] [address] PCP - General Internal Medicine 11/18/22 07/29/24 documented as of this encounter
--- OUTSIDE RECORDS SUMMARY | 2024-10-10 10:17 | XMS_ITS | Encounter Summary ---
[place] [address] Care Team Providers Care Validation Specialist Name Role Phone Yoel Artis APRN Primary Care Provider [phone] Reason for Referral * Consultation (Routine) - Closed Specialty Diagnoses / Procedures Referred By Theodore muro Referred To Contact Urology Diagnoses Raised prostate specific antigen PERSISTENTLY MILDLY ELEVATED PSA, URINARY FREQ Yoel Artis APRN [address] [place] [address] [facility] [place] [address] Referral ID Status Reason Start Date Expiration Date V isits Requested Visits Authorized [id number] Closed Consult, Test & Treat PCP Updated and/or Approved 07/30/2023 07/29/2024 6 6 Encounter Details Date Type Department Care Team (Late st Contact Info) Description 07/30/2023 Transcribe Orders eDH Incoming Referrals [phone] Yoel Artis APRN [address] [place] [address] Raised prostate specific antigen Social History Tobacco [...] 9:30 AM EST Appointment Non-[place] [address] Mushtaq Murphy APRN 10/31/2024 11:00 AM EST Office Visit Cardiology at [address] [address] Mushtaq Murphy, FREDRICK Scheduled Referrals Name Type Priority Associated Diagnoses Orde r Schedule Referral to Urology Outpatient Referral Routine Raised prostate specific antigen Ordered: 07/30/2023 documented as of this encounter Visit Diagnoses Diagnosis Raised prostate specific antigen Elevated prostate specific antigen (PSA) documented in this encounter Care Teams Validation Specialist Relationship Specialty Start Date End Date Yoel Artis APRN [address] [place] [address] PCP - General Internal Medicine 11/18/22 07/29/24 documented as of this encounter
--- OUTSIDE RECORDS SUMMARY | 2024-10-10 10:17 | XMS_ITS | Encounter Summary ---
[place] [address] Care Team Providers Care Blasting Coal Miner Name Role Phone Yoel Artis APRN Primary Care Provider Encounter Details Date Type Department Care Team (Late st Contact Info) Description 12/23/2022 8:20 AM EDT - 12/23/2022 11:59 PM EDT Hospital Encounter [facility] [address] [place] [address] Yoel Artis, SILVER SPRAY WORKER [address] [place] [address] Discharge Disposition: Home Social History Tobacco Use [...] 9:30 AM EST Appointment Non-[place] [address] Mushtaq Murphy, FREDRICK 10/31/2024 11:00 AM EST Office Visit Cardiology at [address] [address] Mushtaq Murphy APRN documented as [...] APRN CHEMISTRY ORDERABLES Performing Organization Address City/State/[facility] Co de Phone Number [facility] [place] [address] documented in this encounter Visit Diagnoses Not on filedocumented in this encounter Care Teams Blasting Coal Miner Relationship Specialty Start Date End Date Yoel Artis APRN [address] [place] [address] PCP - General Internal Medicine 11/18/22 07/29/24 documented as of this encounter
--- OUTSIDE RECORDS SUMMARY | 2024-10-10 10:17 | XMS_ITS | Encounter Summary ---
[place] [address] Care Team Providers Care Manager Orange Name Role Phone Alexia Mtz CHRONOGRAPH OPERATOR Primary Care Provider [phone] Encounter Details Date Type Department Care Team (Late st Contact Info) Description 04/23/2024 Lab [place] [address] Alexia Mtz, CHRONOGRAPH OPERATOR [address] [place] [address] Elevated prostate specific antigen (PSA) Social History [...] 9:30 AM EST Appointment Non-Invasive [place] [address] Mushtaq Murphy, CHRONOGRAPH OPERATOR 10/31/2024 11:00 AM EST Office Visit Cardiology at [address] [address] Mushtaq Murphy, FREDRICK documented as of this encounter Procedures Procedure Name Priority Date/Time Associated Diagnosis Comments PSA (ULTRASENSITIVE), TOTAL AND FREE Routine 04/23/2024 1:09 PM EDT Elevated prostate specific antigen (PSA) documented in this encounter Results * (ABNORMAL) PSA (Ultrasensitive), total and free (04/23/2024 1:09 PM EDT) Prostate Specific Antigen (Ultrasensitive) 5.24(H) 0.00-4.00 ng/mL ng/ml 04/23/2024 5:18 PM EDT [facility] Comment:The reference interv al (0 - 4 ng/mL) is applicable to individuals with an intact prostate. Values within this reference interval may indicate recurrence in those who have undergone radical prostatectomy. This result was generated using a Intact Vascular Osiel immunoassay. Results obtained from other methods or manufacturers cannot be used interchangeably with this method. Prostate Specific Antigen, Free 1.1 ng/ml 04/23/2024 5:18 PM EDT [facility] Comment:This result was gene rated using a Intact Vascular Osiel immunoassay. Results obtained from other methods or manufacturers cannot be used interchangeably with this method. PSA % Free 21 % 04/23/2024 5:18 PM EDT [facility] Comment: Probability of finding CANDLE WICKER on needle biopsy by age in years: [...] EDT 04/23/2024 4:50 PM EDT Alexia Mtz CHRONOGRAPH OPERATOR CHEMISTRY ORDERABLES Performing Organization Address City/State/[facility] Co de Phone Number [facility] [place] [address] documented in this encounter Visit Diagnoses Diagnosis Elevated prostate specific antigen (PSA) documented in this encounter Care Teams Manager Orange Relationship Specialty Start Date End Date Alexia Mtz, FREDRICK [address] [place] [address] PCP - General Family Medicine 07/30/24 documented as of this encounter
--- OUTSIDE RECORDS SUMMARY | 2024-10-10 10:17 | XMS_ITS | Encounter Summary ---
Author Organization [facility] [place] [address] Care Team Providers Care Cargo Supervisor Name Role Phone Unknown Primary Care Provider Unavailabl e Encounter Details Date Type Department Care Team (Late st Contact Info) Description 01/13/2019 9:05 PM EDT Ancillary Procedure Radiology Library at [facility] [place] [phone] Sunny Aviles MD [facility] [place] [address] Social History Tobacco Use Types Packs/Day Years [...] 9:30 AM EST Appointment Non[place] [address] Mushtaq Murphy APRN 10/31/2024 11:00 AM EST Office Visit Cardiology at [address] [address] Mushtaq Murphy, FREDRICK documented as [...] IMG FILM LIBRARY ORDERABLES Performing Organization Address City/State/[facility] Co de Phone Number [place], [place] documented in this encounter Visit Diagnoses Not on filedocumented in this encounter Care Teams Cargo Supervisor Relationship Specialty Start Date End Date Unknown None PCP - General 08/04/10 01/16/19 documented as of this encounter
--- OUTSIDE RECORDS SUMMARY | 2024-10-10 10:17 | XMS_ITS | Encounter Summary ---
Author Organization [facility] Address [facility] [place] [address] Care Team Providers Care Medical Social Worker Name Role Phone Yoel Artis APRN Primary Care Provider [phone] Encounter Details Date Type Department Care Team (Latest Contact Info) Description 11/30/2023 8:00 AM EDT TH Visit (TeleHealth) [place] [address] Yoel Dangelo APRN [facility] [place] [address] Proctalgia fugax; Constipation, unspecified constipation type Social [...] Bath: Sitz bath's are available in most [facility]. They work by improving blood [...] Handout for Patients and Primary Care Providers [facility]intestinal Motility[facility] Esophageal, [facility] Swallowing [facility] What are functional bowel disorders? These are the most common type of gastrointestinal disorders in the [facility] The most common functional bowel [...] to you primary care provider and/or local reclamation worker and share this document. Treatment of functional [...] - this approach benefits most patients OTC (madc-zei-qnjlzjl) medications can be used for ongoing bothersome symptoms as listed below Your provider (PCP or local Gastroenterology provider or [facility] Gastroenterology provider) may decide to use [...] All-Bran psyllium buds, Metamucil, Konsyl, bulk psyllium ([employer] stores and [employer] stores) Specifically we recommend starting Metamucil or [...] but convincing medical evidence is still lacking Nxra-vhi-irjoauy supplements including probiotics are not typically evaluated [...] to decrease antibiotic-associated diarrhea and antibiotic-related infections Vaof-lhg-Tzvhqki Medications for Functional Gut Disorders Based on [...] (GERD) Often a combination of anti-nausea medications (jxil-vrf-whpyleh or prescription) works better thanhigh doses of [...] this information Patient Resources [place] [employer] https://www.gastro.org/practice-guidance/bk-hlvhwkz-fnywpu/ topic/oavliapwr-njhzc-dfsqrvja-ibs Badgut.org https://badgut.org/information-centre/r-k-maysjffbz-topics/ibs/ AboutIBS.org https://www.aboutibs.org/ Uptodate.com https://www.uptodate.com/contents/lyqdzofhc-jeenz-fjuqzbnz-rmkatx-kvh-nkqovk documented in this encounter Progress Notes * [...] Take by mouth. nitroGLYcerin (NITROLINGUAL) 400 mcg/spray [place], Non-Aerosol 1 spray to anus for proctalgia fugax as needed, not to exceed once daily 12 g 0 No facility-administered medications prior to visit. Allergies: has No Known Allergies. Past Medical History: has a past medical history of ADHD, HLD (hyperlipidemia), HTN (hypertension),and Tremor. Past Surgical History: has a past surgical history that includes Hand surgery and Colonoscopy, Antonieta Pfeiffer ([id number]) (N/A, 08/30/2023). Family History: family history is [...] their visit. Yoel Dangelo APRN [facility] [place] [address] documented in this encounter Miscellaneous Notes * Addendum Note - Yoel Dangelo APRN - 11/30/2023 8:00 AM EDTAddended by: YOEL DANGELO on: 11/30/2023 08:46 AM Modules accepted: Level of Service documented in this encounter Plan of Treatment Upcoming Encounters Date Type Department Care Team (Late st Contact Info) Description 10/31/2024 9:30 AM EST Appointment Non-[place] [address] Mushtaq Murphy APRN 10/31/2024 11:00 AM EST Office Visit Cardiology at [address] [address] Mushtaq Murphy APRN documented as of this encounter Visit Diagnoses Diagnosis Proctalgia fugax Anal spasm Constipation, unspecified constipation type documented in this encounter Care Teams Medical Social Worker Relationship Specialty Start Date End Date Yoel Artis APRN [address] [place] [address] PCP - General Internal Medicine 11/18/22 07/29/24 documented as of this encounter
--- OUTSIDE RECORDS SUMMARY | 2024-10-10 10:17 | XMS_ITS | Encounter Summary ---
[place] [address] Care Team Providers Care Obstetric Anaesthetist Name Role Phone Yoel Artis Ute ALCALA Primary Care Provider [phone] Encounter Details Date Type Department Care Team (Late st Contact Info) Description 08/26/2023 Telephone [place] [address] Madelyn Vasquez Social History Tobacco Use Types [...] - 08/26/2023 9:23 AM EST Korey Montoya [id number] Diagnosis/Indication: Rectal pain, fecal smearing Please review [...] ever had a/an Colonoscopy before? Yes: Date mbbssk7ohy ago [facility] If yes, [...] procedure. Who will likely be your driver merchandiser for the procedure? Please Verify the height [...] 9:30 AM EST Appointment [place] [address] Mushtaq Murphy APRN 10/31/2024 11:00 AM EST Office Visit Cardiology at [address] [address] Mushtaq Murphy, FREDRICK documented as of this encounter Visit Diagnoses Not on filedocumented in this encounter Care Teams Obstetric Anaesthetist Relationship Specialty Start Date End Date Yoel Artis APRN [address] [place] [address] PCP - General Internal Medicine 11/18/22 07/29/24 documented as of this encounter
--- OUTSIDE RECORDS SUMMARY | 2024-10-10 10:17 | XMS_ITS | Encounter Summary ---
Author Organization [facility] Address [facility] [place] [address] Care Team Providers Care Abalone Fisherman Name Role Phone Yoel Artis Ute ALCALA Primary Care Provider [phone] Encounter Details Date Type Department Care Team (Late st Contact Info) Description 07/29/2024 Orders Only [employer] [place] [address] Susannah Watts PA [facility] [place] [address] Social History Tobacco Use Types Packs/Day Years Used Date Smoking Tobacco: Former Cigarettes Smokeless Tobacco: Never Alcohol Use Standard Drinks/Week Comments Not Currently 0 (1 standard drink = 0.6 oz pur e alcohol) [facility] Utilities Answer Date Recorded In the past 12 months has [employer], [employer], oil, or water [employer] threatened to shut off services in your [...] 9:30 AM EST Appointment Non-[place] [phone] Mushtaq Murphy, QUALITY SYSTEMS ENGINEER 10/31/2024 11:00 AM EST Office Visit Cardiology at [address] [phone] Mushtaq Murphy, QUALITY SYSTEMS ENGINEER documented as of this encounter Procedures Procedure Name Priority Date/Time Associated Diagnosis Comments ECHOCARDIOGRAM TRANSTHORACIC Routine 07/30/2024 1:41 AM EST documented in this encounter Results * Echocardiogram Transthoracic (07/30/2024 1:41 AM EST) Anatomical Region Laterality Modality Cardiac Other 07/30/2024 1:41 AM EST Narrative 07/30/2024 8:23 AM EST [address] [place] [address] ? Echocardiogram Report Name: BERMUDEZ KOREY Kyrie ? Study Date: 07/30/2024 01:41 AM : 1950 ? Height: 168 cm Age: 74 yrs ? Weight: 5.9 kg Gender: Male ?BSA: 0.63 m2 Performed By: Beatris Ching MD Reason For Study: STEMI, VT History: ASCVD, HTN, HLD Interpreting Fellow: Beatris Ching. Interpretation Summary This is a limited study performed by a fellow program coordinator executive education to evaluate for cardiogenic shock with impella [...] study available for comparison. Procedure Limited - 30549. Suboptimal quality. There is sinus bradycardia. Left [...] Note Kathleen Banda MD - 07/30/2024 [address] [place] [address] Echocardiogram Report Name: KOREY BERMUDEZ Study Date: 07/30/2024 01:41AM : 1950 Height: 168 cm Age: 74 yrs Weight: 5.9 kg Gender: Male BSA: 0.63 m2 Performed By: Beatris Ching MD Reason For Study: STEMI, VT History: ASCVD, HTN, HLD Interpreting Fellow: Beatris Ching. Interpretation Summary This is a limited study performed by a fellow program coordinator executive education to evaluate forcardiogenic shock with impella in. [...] study available for comparison. Procedure Limited - 72122. Suboptimal quality. There is sinus bradycardia. Left [...] on filedocumented in this encounter Care Teams Abalone Fisherman Relationship Specialty Start Date End Date Yoel Artis APRN [address] [place] [address] PCP - General Internal Medicine 11/18/22 07/29/24 documented as of this encounter
--- OUTSIDE RECORDS SUMMARY | 2024-10-10 10:17 | XMS_ITS | Encounter Summary ---
Author Organization [facility] [place] [address] Care Team Providers Care Filler In Name Role Phone Yoel Artis Ute ALCALA Primary Care Provider [phone] Reason for Visit * Auth/Cert (Routine) Specialty Diagnoses / Procedures Referred By Theodore t Referred To Contact Diagnoses Anal spasm Fecal smearing Constipation, unspecified Rectal pain, fecal smearing Procedures PRO COLONOSCOPY, DIAGNOSTIC PRO COLONOSCOPY, BIOPSY PRO COLONOSCOPY, REMV LESN, SNARE COLONOSCOPY, DIAGNOSTIC (WRVU 3.26) Brandan Mcgovern MD [facility] [place] [address] [facility] Referral ID Status Reason Start Date Expiration Date Visits Re quested Visits Authorized [id number] 1 1 Encounter Details Date Type Department Care Team (Latest Contact Info) Description 08/30/2023 10:09 AM EST - 08/30/2023 12:19 PM [facility] Hospital Encounter [place] [address] Brandan Mcgovern MD [facility] [address] Discharge Disposition: Home Social History Tobacco Use [...] occurs, please contact your Doctor. Please call [phone] before 8pm Mon-Fri with problems, questions or concerns. If you call after 8pm or on weekends, call the Hospital at [phone] and ask to speak to the Rap Artist electronics manufacturer and the charger operator will contact that person for you. When should you call for help? Call [phone] anytime you think you may need emergency [...] any problems. Where can you learn more? [facility] View your After Visit Summary and more online at [email or web address] If you would like to provide feedback about your hospital experience, please call the Office of Patient and Family Relations at . If you have received this After Visit Summary in error, please immediately return it in person to the department, or notify the [facility] Privacy Office by calling toll free at between the hours of 8AM and 5PM to arrange for our retrieval of the documents at no cost to you. Content Version: 12.2 ?? [phone] [employer]. Care instructions adapted under license by [facility]. If you have questions about a medical condition or this instruction, always ask your healthcare professional. [employer] disclaims any warranty or liability for your [...] evening. 04/17/2023 08/04/2024 nitroGLYcerin (NITROLINGUAL) 400 mcg/spray [place], Non-AerosolIndications:P roctalgia fugax,Fecal smearing,Constipation, unspecified constipation type [...] 9:30 AM EST Appointment Non-Invasive [place] [phone] Mushtaq Murphy APRN 10/31/2024 11:00 AM EST Office Visit Cardiology at [address] [address] Mushtaq Murphy APRN documented as of this encounter Procedures Procedure Name Priority Date/Time Associated Diagnosis Comments SPECIMEN TO PATHOLOGY Routine 08/30/2023 11:23 AM EST SURGICAL PATHOLOGY REPORT Routine 08/30/2023 11:21 AM EST COLONOSCOPY Routine 08/30/2023 10:57 AM EST Colonoscopy, Antonieta Valadez ([id number]) 08/30/2023 10:44 AM EST Proctalgia fugax Fecal smearing Constipation, unspecified constipation type documented in this encounter Results * Specimen to Pathology (08/30/2023 11:23 AM EST) AP Specimen 08/30/2023 11:2 3 AM EST 08/30/2023 11:23 AM EST Narrative [facility] - 08/30/2023 11:23 AM EST Specimen requisition ordered. ??Separate Pathology report to follow Brandan Mcgovern MD PATHOLOGY/CYTOLOGY O RDERASHAY [facility] [place] [address] * Surgical Pathology Report (08/30/2023 11:21 AM EST) Final Diagnosis [id number] ? Location: 4T; EA12; A The signing pathologist has (i) examined the relevant preparation(s) for the specimen(s) and (ii) rendered or confirmed the diagnosis(es). . ?Surgical Pathology DIAGNOSIS A - Sigmoid colon polyp, resection (Multiple): - ??Tubular adenoma. CR-PX Electronically signed by: ?Blake ORTEGA PhD, Yulia Verified: ??09/08/2023 14:48 ??Pathologist Performed at: ??-[facility] Dept. of Pathology, [place] [address] Paleology Teacher: Fercho Chan MD, FCAP, ??CLIA Certificate: [id number] SPECIMEN(S) SUBMITTED A - Sigmoid colon polyp, [...] EST Brandan Mcgovern MD PATHOLOGY/CYTOLOGY Veronica RDCLAIREBLES [facility] [address] [facility] [place] [address] * COLONOSCOPY (08/30/2023 10:57 AM EST) COLONOSCOPY [facility] Endoscopy Procedure Date: 08/30/2023 10:57 AM ? Patient Name: Korey Montoya ? N: [id number] ? Date of : 1950 ? Age: 73 ? Order #: [id number] ? Instrument Name: [id number] ? Procedure: ? Colonoscopy Indications: ? Rectal [...] preparation was evaluated ? using the BBPS ([place] Bowel ? Preparation Scale) with scores of: [...] RN) documented in this encounter Care Teams Filler In Relationship Specialty Start Date End Date Yoel Artis APRN [address] [place] [address] PCP - General Internal Medicine 11/18/22 07/29/24 documented as of this encounter
--- OUTSIDE RECORDS SUMMARY | 2024-10-10 10:17 | XMS_ITS | Encounter Summary ---
[place] [address] Care Team Providers Care Tree Specialist Name Role Phone Yoel Artis APRN Primary Care Provider Encounter Details Date Type Department Care Team (Late st Contact Info) Description 03/01/2023 9:30 AM EDT - 03/01/2023 11:59 PM EDT Hospital Encounter [facility] [address] [place] [address] Yoel Artis, PARTS SALES COUNTERPERSON [address] [place] [address] Discharge Disposition: Home Social History Tobacco Use [...] 9:30 AM EST Appointment Non-[place]vasive [place] [address] Mushtaq Murphy, FREDRICK 10/31/2024 11:00 AM EST Office Visit Cardiology at [address] [address] Mushtaq Murphy APRN documented as [...] APRN CHEMISTRY ORDERABLES [facility] [place] [address] documented in this encounter Visit Diagnoses Not on filedocumented in this encounter Care Teams Tree Specialist Relationship Specialty Start Date End Date Yoel Artis APRN [address] [place] [address] PCP - General Internal Medicine 11/18/22 07/29/24 documented as of this encounter
--- OUTSIDE RECORDS SUMMARY | 2024-10-10 10:17 | XMS_ITS | Encounter Summary ---
Author Organization [facility] Address [facility] [place] [address] Care Team Providers Care Network Control Technician Name Role Phone Yoel Artis FREDRICK Primary Care Provider [phone] Encounter Details Date Type Department Care Team (Late st Contact Info) Description 07/29/2024 Notes [place] [phone] Ivan Hernandez MD [facility] [address] Social History Tobacco Use Types Packs/Day Years Used Date Smoking Tobacco: Former Cigarettes Smokeless Tobacco: Never Alcohol Use Standard Drinks/Week Comments Not Currently 0 (1 standard drink = 0.6 oz pur e alcohol) [facility] Utilities Answer Date Recorded In the past 12 months has e [employer], gas, oil, or water [employer] threatened to shut off services in your [...] 9:50 AM Hospital to which patient presented: [facility] If Hospital to which patient presented= [facility]: ED Walk In Medical History (prior to [...] Unfractionated Heparin Plan STEMI Alert called: Yes Rinkman Activated by: Afterschool Initial Disposition: Admit Rinkman documented in this encounter Plan of Treatment Upcoming Encounters Date Type Department Care Team (Late st Contact Info) Description 10/31/2024 9:30 AM EST Appointment Non[place] [address] Mushtaq Murphy APRN 10/31/2024 11:00 AM EST Office Visit Cardiology at [address] [address] Mushtaq Murphy APRN documented as of this encounter Visit Diagnoses Not on filedocumented in this encounter Care Teams Network Control Technician Relationship Specialty Start Date End Date Yoel Artis APRN [address] [place] [address] PCP - General Internal Medicine 11/18/22 07/29/24 documented as of this encounter
--- OUTSIDE RECORDS SUMMARY | 2024-10-10 10:17 | XMS_ITS | Encounter Summary ---
[place] [address] Care Team Providers Care Relocation Commissioner Name Role Phone Yoel Artis Ute ALCALA Primary Care Provider [phone] Reason for Visit * Auth/Cert (Routine) Specialty Diagnoses / Procedures Referred By Theodore t Referred To Contact Diagnoses STEMI (ST elevation myocardial infarction) STEMI Procedures ER IPI Vahe Marvin MD [facility] [place] [address] [facility] Referral ID Status Reason Start Date Expiration Date Visits Re quested Visits Authorized [id number] 1 1 Encounter Details Date Type Department Care Team (Late st Contact Info) Description 07/29/2024 12:00 PM EST - 07/29/2024 12:54 PM [place] [address] Vahe Marvin MD [facility] [place] [address] CARDIAC CATHETERIZATION Social History Tobacco Use Types Packs/Day Years Used Date Smoking Tobacco: Former Cigarettes Smokeless Tobacco: Never Alcohol Use Standard Drinks/Week Comments Not Currently 0 (1 standard drink = 0.6 oz pur e alcohol) [facility] Utilities Answer Date Recorded In [...] your inpatient physician through the [facility] Magistrate . Issues afterhours and on weekends will [...] transferred via air ambulance [place] [facility] [place] 07[place] for LHC and LOW to [...] transferred via air ambulance to [facility] for further management and LHC demonstrated 100% [...] the next year. Access was via right TECHNOLOGY ASSISTANT and this sitewas clean, dry and [...] for Chest pain. Replaces: nitroGLYcerin 400 mcg/spray [place], Non-Aerosol 0.4 mg Quantity: 90 tablet Refills: [...] Refills: 0 STOPPED Medications nitroGLYcerin 400 mcg/spray [place], Non-Aerosol Commonly known as: NITROLINGUAL Replaced by: [...] of one year. After this time, your silk printer will determine if you need to continue [...] away. Stay on the phone. The emergency hydropulper operator will tell you what to do. [...] appointments: During 8am-5pm Tuesday through Tuesday call [phone] to speak with a nurse in the cardiology clinic All other times call [phone] and ask to speak to the retention representative used car salesperson. Follow up Appointments: PCP Alexia Mtz, CENTRIFUGAL MACHINE TENDER [phone]. Please call to establish a follow up appointment within 1-2 weeks of discharge. Cardiology. Referral to heart failure has been sent. General Instructions None Future Appointments and Orders Future Orders Complete By Expires Referral to Cardiac Rehab [FRN442 Custom] As directed Process Instructions: If no [...] of one year. After this time, your silk printer will determine if you need to continue [...] away. Stay on the phone. The emergency hydropulper operator will tell you what to do. [...] appointments: During 8am-5pm Tuesday through Tuesday call [phone] to speak with a nurse in the cardiology clinic All other times call [phone] and ask to speak to the retention representative used car salesperson. Follow up Appointments: PCP Alexia Mtz, CENTRIFUGAL MACHINE TENDER [phone]. Please call to establish a follow up [...] transferred via air ambulance [place] [facility] [place] for LHC and LOW to LAD for 100% occlusion Social History: Pt lives with his in a 1 level home with 2 NAOMI. 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 He [...] Total time: 35 (tef) minutes Time IN/OUT: 2669-1921 ZAIDA DUBOSE PT Pager: [phone] Physical Therapy Inpatient Rehabilitation Department * Yrn Velazquez MD - 08/03/2024 10:38 AM EST CV HOSPITALIST 2 - [facility] DAILY PROGRESS NOTE Page [phone] to reach a provider 04/04 Admit Date: [...] Compared to the overnight study by the used car salesperson fellow the impella position is stable. 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 [facility] 07/29/24 Conclusions: * One vessel coronary artery disease (LAD) * Mild pulmonary hypertension * Elevated pulmonary capillary wedge pressure * Successful stent insertion of the proximal LAD lesion * See Dual Antiplatelet (DAPT) Recommendations above * Successful impella placement for cardiogenic shock. Telemetry: I have personally reviewed and interpreted the telemetry from the last 24 hours. [facility] Assessment: ASSESSMENT: Korey Montoya is a 74 y.o. male w/ PMH of hypertension, HLD, and BPH who presents for chief concern of chest pain after being found to have ST elevations on EKG. Patient transferred via air ambulance [place] [facility] [place] for LHC and LOW to [...] to be determined OT: PCP Alexia Mtz, CENTRIFUGAL MACHINE TENDER [phone] * Zaida Dubose, PT - 08/02/2024 2:08 PM EST Physical Therapy Evaluation Patient profile: Korey Montoya is a 74 y.o. male w/ PMH of hypertension, HLD, and BPH who presents for chief concern of chest pain after being found to have ST elevations on EKG. Patient transferred via air ambulance [place] [facility] [place] 07[place] for LHC and LOW to LAD for 100% occlusion Social History: Pt lives with his in a 1 level home with 2 NAOMI. 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 He [...] Total time: 37 (eval) minutes Time IN/OUT: 3634-3031 ZAIDA DUBOSE PT Pager: [phone] Physical Therapy Inpatient Rehabilitation Department * Gagan [...] transferred via air ambulance to [facility] on 07[place] for LHC and LOW to LAD for 100% occlusion. TTE showed apical akinesis and inferior hypokinesis with EF 20%. RHC showed elevated filling pressures. Impella placed and P-level 6 at time of transfer to [facility]. CI initially 1.97, improved [...] PCP: Alexia Mtz APRN PCP phone number: [phone] Date of Admission: 07/29/2024 ( Hospital Day 4 days ) Attending:Bridgette Stauffer MD ID: Korey Montoya is a 74 y.o. male w/ PMH of hypertension, HLD, and BPH on Hospital Day4 for chief concern of chest pain after being found to have ST elevations on EKG. Patient transferred via air ambulance to [facility] on 07[place] for LHC and LOW to [...] 07/29/24 1621 PHART 7.48* 7.44 7.38 7.37 XIZ1ZSV 29* 29* 34* 36 PO2ART 71* 109* 141* 71* BNJ7GOF 20.6 19.4* 19.5* 20.4 VBG (Venous Blood Gas) Recent Labs 07/29/24 1401 PHVEN 7.30* PO2VEN 39 ZVU9DIC 20.1* Mixed Venous Sat No results for input(s): N6ODDT6 in the last 168 hours. Objective: Vitals [...] 07/29/24 1621 PHART 7.48* 7.44 7.38 7.37 ZUV7LTA 29* 29* 34* 36 PO2ART 71* 109* 141* 71* DHZ1SIZ 20.6 19.4* 19.5* 20.4 VBG (Venous Blood Gas) Recent Labs 07/29/24 1401 PHVEN 7.30* PO2VEN 39 VJJ9EKG 20.1* Mixed Venous Sat No results for input(s): U7UXAR1 in the last 168 hours. Microbiology: Microbiology Results (Last 30 days) Procedure Component Value Units Date/Time Blood culture [[id number]] Collected: 07/29/24 160 Lab Status: Preliminary result Specimen: Blood, Venous Updated: 08/01/24 170 Blood Culture No growth at 72 hours Blood culture [[id number]] Collected: 07/29/24 160 Lab Status: Preliminary result Specimen: Blood, Venous Updated: 08/01/24 170 Blood Culture No growth at 72 hours Imaging: Results for orders placed or performed during the hospital encounter of 07/29/24 XR Chest One View (Exam End: 07/29/2024 2:30 PM) Result Value WORKSTATION ID [id number] Impression 1. No pulmonary edema. 2. No pleural effusion. 3. No pneumothorax. Thank you for letting us participate in the care of this patient. If you are a health care provider and have any questions regarding this report, please contact the number below. For patients who have questions please contact the health medication care manager that requested your imaging first. Electronically signed by: Chris Candelaria MD, [facility] ([phone]), at 07/29/2024 3:21 PM TTE ( 07/30/24) [...] Compared to the overnight study by the used car salesperson fellow the impella position is stable. The [...] transferred via air ambulance [place] [facility] on [place] for LHC and LOW to [...] Susannah Ornelas MD Internal Medicine, PGY-1 Cardiology, [facility] 08/02/24 12:45 PM CARDIOLOGY [...] Transfer to floor. Krystal Parker MD, [facility], REPLACED BY [facility] Staff Diploma Pharmacy Technician journalism instructor * Gagan Catherine MD - 08/01/2024 11:12 [...] transferred via air ambulance [place] [facility] [place] for LHC and LOW to [...] PCP: Alexia Mtz APRN PCP phone number: [phone] Date of Admission: 07/29/2024 ( Hospital Day 3 days ) Attending:Krystal Parker MD ID: Korey Montoya is a 74 y.o. male w/ PMH of hypertension, HLD, and BPH on Hospital Day3 for chief concern of chest pain after being found to have ST elevations on EKG. Patient transferred via air ambulance [place] [facility] [place] 07[place] for LHC and LOW to [...] 07/29/24 1621 PHART 7.48* 7.44 7.38 7.37 ZHZ7OHD 29* 29* 34* 36 PO2ART 71* 109* 141* 71* GCS5UPG 20.6 19.4* 19.5* 20.4 VBG (Venous Blood Gas) Recent Labs 07/29/24 1401 PHVEN 7.30* PO2VEN 39 VJH1HGC 20.1* Mixed Venous Sat No results for input(s): A6ACBN6 in the last 168 hours. PA Catheter [...] 07/29/24 1621 PHART 7.48* 7.44 7.38 7.37 STE1HGT 29* 29* 34* 36 PO2ART 71* 109* 141* 71* PFX3ARR 20.6 19.4* 19.5* 20.4 VBG (Venous Blood Gas) Recent Labs 07/29/24 1401 PHVEN 7.30* PO2VEN 39 LVW6NCS 20.1* Mixed Venous Sat No results for input(s): J6ZEDE4 in the last 168 hours. Microbiology: Microbiology Results (Last 30 days) Procedure Component Value Units Date/Time Blood culture [[id number]] Collected: 07/29/241607 Lab Status: Preliminary result Specimen: Blood, Venous Updated: 07/31/241700 Blood Culture No growth at 48 hours Blood culture [[id number]] Collected: 07/29/241607 Lab Status: Preliminary result Specimen: Blood, Venous Updated: 07/31/241700 Blood Culture No growth at 48 hours Imaging: Results for orders placed or performed during the hospital encounter of 07/29/24 XR Chest One View (Exam End: 07/29/2024 2:30 PM) Result Value WORKSTATION ID [id number] Impression 1. No pulmonary edema. 2. No pleural effusion. 3. No pneumothorax. Thank you for letting us participate in the care of this patient. If you are a health care provider and have any questions regarding this report, please contact the number below. For patients who have questions please contact the health medication care manager that requested your imaging first. Electronically signed by: Chris Candelaria MD, [facility] ([phone]), at 07/29/2024 3:21 PM TTE ( 07/30/24) [...] Compared to the overnight study by the used car salesperson fellow the impella position is stable. The [...] transferred via air ambulance to [facility] on 07[place] for LHC and LOW to [...] with him; questions answered. Krystal Parker MD, [facility], REPLACED BY [facility] Staff Diploma Pharmacy Technician journalism instructor * Krystal Parker MD - 07/31/2024 1:06 [...] transferred via air ambulance to [facility] on 07[place] for LHC and LOW to LAD for 100% occlusion. TTE showed apical akinesis and inferior hypokinesis with EF 20%. RHC showed elevated filling pressures. Impella placed and P-level 6 at time of transfer to [facility]. CI initially 1.97, improved to 2.2 After impella. Received about 3 L of fluid during procedural course. Patient initially required norepinephrine 30, epinephrine 10, and vasopressin 0.04 for hemodynamic support, which was weaned upon arrival to [facility] to norepinephrine 20and levo [...] PCP: Alexia Mtz APRN PCP phone number: [phone] Date of Admission: 07/29/2024 ( Hospital Day 2 days ) Attending:Krystal Parker MD ID: Korey Montoya is a 74 y.o. male w/ PMH of hypertension, HLD, and BPH on Hospital Day2 for chief concern of chest pain after being found to have ST elevations on EKG. Patient transferred via air ambulance [place] [facility] on 07[place] for LHC and LOW to [...] 0057 07/29/24 1621 PHART 7.44 7.38 7.37 SEC5JQQ 29* 34* 36 PO2ART 109* 141* 71* OFQ3SQW 19.4* 19.5* 20.4 VBG (Venous Blood Gas) Recent Labs 07/29/24 1401 PHVEN 7.30* PO2VEN 39 BNO9SOS 20.1* Mixed Venous Sat No results for input(s): C9CMKN4 in the last 168 hours. PA Catheter [...] 0057 07/29/24 1621 PHART 7.44 7.38 7.37 LNT3ELY 29* 34* 36 PO2ART 109* 141* 71* SUV9WRG 19.4* 19.5* 20.4 VBG (Venous Blood Gas) Recent Labs 07/29/24 1401 PHVEN 7.30* PO2VEN 39 CEG5HBJ 20.1* Mixed Venous Sat No results for input(s): Z3YZQJ0 in the last 168 hours. Microbiology: Microbiology Results (Last 30 days) Procedure Component Value Units Date/Time Blood culture [[id number]] Collected: 07/29/24 160 Lab Status: Preliminary result Specimen: Blood, Venous Updated: 07/30/24 170 Blood Culture No Growth at 18-24 hrs. Blood culture [[id number]] Collected: 07/29/241607 Lab Status: Preliminary result Specimen: Blood, Venous Updated: 07/30/241700 Blood Culture No Growth at 18-24 hrs. Imaging: Results for orders placed or performed during the hospital encounter of 07/29/24 XR Chest One View (Exam End: 07/29/2024 2:30 PM) Result Value WORKSTATION ID [id number] Impression 1. No pulmonary edema. 2. No pleural effusion. 3. No pneumothorax. Thank you for letting us participate in the care of this patient. If you are a health care provider and have any questions regarding this report, please contact the number below. For patients who have questions please contact the health medication care manager that requested your imaging first. Electronically signed by: Chris Candelaria MD, [facility] ([phone]), at 07/29/2024 3:21 PM TTE ( 07/30/24) [...] Compared to the overnight study by the used car salesperson fellow the impella position is stable. The [...] transferred via air ambulance to [facility] on 07[place] for LHC and LOW to [...] work to optimize volume status while continuing dxyykyv-zneuya-kikaismamp therapies at this time. Obtain comprehensive TTE. [...] transferred via air ambulance to [facility] on 07/[place] for LHC and LOW to LAD for 100% occlusion. TTE showed apical akinesis and inferior hypokinesis with EF 20%. RHC showed elevated filling pressures. Impella placed and P-level 6 at time of transfer to [facility]. CI initially 1.97, improved to 2.2 After impella. Received about 3 L of fluid during procedural course. Patient initially required norepinephrine 30, epinephrine 10, and vasopressin 0.04 for hemodynamic support, which was weaned upon arrival to [facility] to norepinephrine 20and levo [...] PCP: Yoel Artis APRN PCP phone number: [phone] Date of Admission: 07/29/2024 ( Hospital Day 1 day ) Attending:Aubree Silverio MD ID: Korey Montoya is a 74 y.o. male w/ PMH of hypertension, HLD, and BPH on Hospital Day1 for chief concern of chest pain after being found to have ST elevations on EKG. Patient transferred via air ambulance [place] [facility] on 07[place] for LHC and LOW to [...] 0057 07/29/24 1621 PHART 7.44 7.38 7.37 HFS8FGB 29* 34* 36 PO2ART 109* 141* 71* ADV1RNP 19.4* 19.5* 20.4 VBG (Venous Blood Gas) Recent Labs 07/29/24 1401 PHVEN 7.30* PO2VEN 39 BPB8DEP 20.1* Lactate ( Last 12 hours) 1.3 >> 1.2 Mixed Venous Sat No results for input(s): C9AKAQ0 in the last 168 hours. PA Catheter [...] 0057 07/29/24 1621 PHART 7.44 7.38 7.37 QYX9XTH 29* 34* 36 PO2ART 109* 141* 71* SHO0OGL 19.4* 19.5* 20.4 VBG (Venous Blood Gas) Recent Labs 07/29/24 1401 PHVEN 7.30* PO2VEN 39 FKK2ETY 20.1* Mixed Venous Sat No results for input(s): T5OKMZ5 in the last 168 hours. Microbiology: Microbiology Results (Last 30 days) Procedure Component Value Units Date/Time Blood culture [[id number]] Collected: 07/29/24 1608 Lab Status: In process Specimen: Blood, Venous Updated: 07/29/24 1626 Blood culture [[id number]] Collected: 07/29/24 1608 Lab Status: In process Specimen: Blood, Venous Updated: 07/29/24 1615 Imaging: Results for orders placed or performed during the hospital encounter of 07/29/24 XR Chest One View (Exam End: 07/29/2024 2:30 PM) Result Value WORKSTATION ID [id number] Impression 1. No pulmonary edema. 2. No pleural effusion. 3. No pneumothorax. Thank you for letting us participate in the care of this patient. If you are a health care provider and have any questions regarding this report, please contact the number below. For patients who have questions please contact the health medication care manager that requested your imaging first. [...] transferred via air ambulance [place] [facility] on 07[place] for LHC and LOW to [...] transferred via air ambulance to [facility] on 07/[place] for LHC and LOW to [...] transferred via air ambulance to [facility] for further management and [facility] demo nstrated 100% occlusion. No significant RCA, LMCA, or LCX disease. LOW placed in LAD with some residual distal disease meriting placement of overlapping distal stent. TTE showed apical akinesis and inferior hypokinesis with EF 20%. RHC showed elevated filling pressures. Impella placed and P-level 6 at time of transfer to [facility]. CI initially 1.97, improved to 2.2 After impella. Received about 3 L of fluid during procedural course. Patient initially required norepinephrine, epinephrine, and vasopressin for hemodynamic support, which was weaned upon arrival to [facility] to norepinephrine 20 and [...] performed by Brandan Mcgovern MD [facility] ENDOSCOPY Significant Family History: Family History Problem [...] mouth. Past Week nitroGLYcerin (NITROLINGUAL) 400 mcg/spray [place], Non-Aerosol 1 spray to anus for proctalgia [...] 3.5 guiding catheter and a 3.5 Fr [place] [facility] [place] 20 Mhz using Manual pullback. Imaging [...] for the procedure was Emergent. The [facility] indication for the procedure was STEMI-Immediate [...] atmospheres. A premounted 3.00 x 22 mm [place] Dukes (LOW) was deployed with a maximum inflation [...] A premounted 3.00 x 08 mm [place] Dukes (LOW) was deployed with a maximum inflation [...] a limited study performed by a fellow used car salesperson to evaluate for cardiogenic shock with impella [...] Compared to the overnight study by the used car salesperson fellow the impella position is stable. The [...] transferred via air ambulance to [facility] on 07[place] for LHC and LOW to [...] PCP: Yoel Artis APRN PCP phone number: [phone] Date of Admission: 07/29/2024 ( Hospital Day 0 days ) Attending:Aubree Silverio MD ID: Korey Montoya is a 74 y.o. male w/ PMH of hypertension, HLD, and BPH who presents for chief concern of chest pain after being found to have ST elevations on EKG. Patient transferred via air ambulance to [facility] on 07/[place] for LHC and LOW to LAD for 100% occlusion. HPI: Korey Montoya is a 74 y.o. male w/ PMH of hypertension, HLD, and BPH who presents for chief concern of chest pain after being found to have ST elevations on EKG. Patient transferred via air ambulance to [facility] on 07/[place] for LHC and LOW to [...] transferred via air ambulance to [facility] for further management and LHC demonstrated 100% [...] performed by Brandan Mcgovern MD [facility] ENDOSCOPY Family History Family History Problem Relation [...] Blood Gas) No results for input(s): PHART, NAX9ZJB, PO2ART, VSA8YLU, LACTATEVEN, FRP3IBP, PFRATIOART2 in the last 168 hours. VBG (Venous Blood Gas) Recent Labs 07/29/24 1401 PHVEN 7.30* PO2VEN 39 LOY6LAB 20.1* Mixed Venous Sat No results for input(s): R5PAML8 in the last 168 hours. PA Catheter [...] Blood Gas) No results for input(s): PHART, WQM9OFY, PO2ART, RXB1OWW, LACTATEVEN, VWL1AUF, PFRATIOART2 in the last 168 hours. VBG (Venous Blood Gas) Recent Labs 07/29/24 1401 PHVEN 7.30* PO2VEN 39 UHF2WBA 20.1* Mixed Venous Sat No results for input(s): C0VLQI1 in the last 168 hours. Microbiology: Microbiology [...] transferred via air ambulance to [facility] on 07/[place] for LHC. Found to have 100% occlusion of LAD for which he underwent LOW to LAD.Otherwise no other significant vessel disease. Fahad is currently hemodynamically tenuous but improving upon admission to [facility], requiring hemodynamic support with norepinephrine and vasopressin at time of admission along with mechanical support with Impella device. Reassuringly, he demonstrates decreasing pressor requirements since admission to [facility], with epinephrine completely weaned. [...] Resuscitation - Inpatient Dispo: Pending clinical course Benrardo Amos MD Internal Medicine, PGY-3 Cardiology, [facility] 07/29/24 3:14 PM Cardiology [...] FACC Section of Cardiovascular Medicine [facility] Specialistabrasives sales representative [employer] [facility] This patient meets or has met [...] to the planned procedure. Hand Hygiene: The last inserter did perform hand hygiene prior to [...] ease. Good wave form. Ivan Hernandez MD Wooden Barrel Mechanic Associated attestation - Rolando Yeh MD [...] No Patient is insured through: Primary Insurance: [employer] MANAGED MEDICARE Payor: [employer] MANAGED MEDICARE / Plan: [facility] COMPLETE / Product Type: [...] of Discharge: 08/04/2024 Gaby Wong RN, CM [phone] * Initial Assessments - Char Meza OT - 08/03/2024 10:00 AM EST Occupational Therapy Evaluation Patient profile: Korey Montoya is a 74 y.o. male admitted on 07/29/2024 w/ PMH of hypertension, HLD, and BPH who presents for chief concern of chest pain after being found to have ST elevations onEKG. Patient transferred via air ambulance [place] [facility] on 07[place] for LHC and LOW to LAD for 100% occlusion. Past Medical History: Diagnosis Date ADHD HLD (hyperlipidemia) HTN (hypertension) Tremor Past Surgical History: Procedure Laterality Date HAND SURGERY PRO COLONOSCOPY, REMV LESN, SNARE N/A 08/30/2023 COLONOSCOPY, POLYPECTOMY, REMOVAL LESION BY SNARE (WRVU 4.57) performed by Brandan Mcgovern MD [facility] ENDOSCOPY Social History: Patient lives with his . Home Setup: 2 NAOMI to a 1 level home. DME: none Baseline ADL/Mobility: Independent with ADLs and IADLs. Enjoys walking. able assist as needed. Precautions/Special Considerations: Full code. Risk for falls. Subjective: I have access to an [employer] gym. (Educated to wait for MD to [...] evaluation only Total Minutes, Occupational Therapy: 14 ([id number] (evaluation)) 2017 OT Evaluation Code Rationale: Diagnosis [...] and measurable assessment of functional outcome. Pager: [phone] Char Meza OT 08/03/2024 Occupational Therapy Rehabilitation [...] (Interventions Implemented as Appropriate) Flowsheets (Taken 08/01/2024 1028) Outcome Summary: A+O, no pain. NSR. MAP [...] Procedure Note: Patient Name: Korey Montoya : [id number] MR#: [id number] Case Date: 07/31/2024 Court Magistrate: Surgeons and Role: * Maldonado Luis MD - Primary * Quinten Charles PA - Physician Cushion Former Preoperative diagnosis: shock, impella Postoperative diagnosis: * same * Procedure(s) performed: Impella removal form right TECHNOLOGY ASSISTANT Access: Right TECHNOLOGY ASSISTANT A time-out was conducted prior to [...] 180 days) Any patient receiving care in [place] must abide by [place] law. The hierarchy [...] The agent with financial power of attorney at law or a conservator appointed in accordance with [...] it) Home Address confirmed as: Mailing Address: [address] [address] Physical Address: [address] [place] [address] Social & Family Supports: All names listed [...] Coverage: Primary Insurance: [employer] MANAGED MEDICARE Payor: [facility] / Plan: [facility] MANAGED MEDICARE COMPLETE / Product Type: *No Product type* / Secondary Insurance: N/A ; Prescription Coverage: Yes Preferred Pharmacy: [address] - [address] [address] [place] Status: Patient is a : No Primary Care Provider confirmed: Alexia Mtz, CENTRIFUGAL MACHINE TENDER [phone] Patient/Caregiver Goals of Treatment: return home Potential [...] 07/29/2024 6:25 PM EST Pt arrived from blood bank laboratory professional @ 1400. CXR and EKG completed. Impella [...] Procedure Note: Patient Name: Korey Montoya : [id number] MR#: [id number] Case Date: 07/29/2024 Court Magistrate: Surgeons and Role: * Vahe Marvin MD - Primary * Susannah Watts PA - Physician Cushion Former Preoperative diagnosis: STEMI Postoperative diagnosis: * STEMI, LAD Artery * * Cardiogenic Shock * Procedure(s) performed: [facility] Coronary angiogram Stent insertion coronary IVUS coronary Venous line insert [facility] [place] Co[place] Catheter Vascular closure device Ventricular assist [...] x 22 mm to 14 deonna JEISON Dukes with LIZ 3 flow. Residual distal disease at distal stent, overlapping distal stent was inserted with 3.0 x 8 mm JEISON Dukes. Systolic's in the 80's sustained. Patient re [...] EST Appointment Non[place] [address] Mushtaq Murphy, CENTRIFUGAL MACHINE TENDER 10/31/2024 11:00 AM EST Office Visit Cardiology at [address] [phone] Mushtaq Murphy, CENTRIFUGAL MACHINE TENDER Scheduled Orders Name Type Priority Associated [...] HEMATOLOGY ORDERABLE S [facility] [place] [address] * Magnesium (08/04/2024 6:08 AM EST) Pathologist [facility] Magnesium 0.85 0.69 - 1.07 mMol/L 08/04/2024 7:[address] [facility] Blood VENOUS BLOOD SPECIMEN / Unknown Venipuncture / Unknown 08/04/2024 6:08 AM EST 08/04/2024 6:19 AM EST Bridgette Stauffer MD CHEMISTRY ORDERABLES [facility] [place] [address] * Basic Metabolic Panel (08/04/2024 6:08 AM EST) Pathologist [facility] Glucose 93 65 - 199 mg/dL 08/04/2024 [...] MD CHEMISTRY ORDERABLES [facility] [place] [address] * (ABNORMAL) CBC (with Diff) (08/03/2024 5:16 [...] MD HEMATOLOGY ORDERABLE S Performing Organization Address City/[facility]/ZIP Co de Phone Number [facility] [place] [address] * Magnesium (08/03/2024 5:16 AM EST) Magnesium 0.89 0.69 - 1.07 mMol/L 08/03/2024 5:[address] [facility] Blood VENOUS BLOOD SPECIMEN / Unknown Venipuncture / Unknown 08/03/2024 5:16 AM EST 08/03/2024 5:23 AM EST Bridgette Stauffer MD CHEMISTRY ORDERABLES [facility] [place] [address] * (ABNORMAL) Basic Metabolic Panel (08/03/2024 5:16 [...] MD CHEMISTRY ORDERABLES [facility] [place] [address] * POC, GLUCOSE (08/02/2024 7:47 AM EST) Glucometer, POC 89 65 - 199 mg/dL 08/02/2024 7:[address] [facility] Comment:Supplemental ranges: <140 mg/dL before meals <180 mg/dL all other times of the day. Blood CAPILLARY BLOOD / Unknown 08/02/2024 7:47 AM EST 08/02/2024 7:47 AM EST Krystal Parker MD POINT OF CARE TEST O RDERABLES [facility] [place] [address] * (ABNORMAL) CBC (with Diff) (08/02/2024 4:20 AM EST) [facility] White Blood Cell 8.51 4.00 - [...] MD HEMATOLOGY ORDERABLE S Performing Organization Address City/[facility]/ZIP Co de Phone Number [facility] [place] [address] * Magnesium (08/02/2024 4:20 AM EST) Magnesium 0.79 0.69 - 1.07 mMol/L 08/02/2024 5:[address] [facility] Blood VENOUS BLOOD SPECIMEN / Unknown Venipuncture / Unknown 08/02/2024 4:20 AM EST 08/02/2024 4:37 AM EST Bridgette Stauffer MD CHEMISTRY ORDERABLES Performing Organization Address City/[facility] Co de Phone Number [facility] [place] [address] * (ABNORMAL) Basic Metabolic Panel (08/02/2024 4:20 [...] MD CHEMISTRY ORDERABLES Performing Organization Address City/State/[facility] Co de Phone Number [facility] [place] [address] * Potassium (08/01/2024 8:39 PM EST) Potassium 4.0 3.5 - 5.0 mMol/L 08/01/2024 9:21 PM EST [facility] Blood VENOUS BLOOD SPECIMEN / Unknown Venipuncture / Unknown 08/01/2024 8:39 PM EST 08/01/2024 8:51 PM EST Aubree Silverio MD CHEMISTRY ORDERABL ES Performing Organization Address [facility] Co de Phone Number [facility] [place] [address] * POC, GLUCOSE (08/01/2024 8:35 PM EST) Glucometer, POC 112 65 - 199 mg/dL 08/01/2024 8:36 PM EST [facility] Comment:Supplemental ranges: <140 mg/dL before meals <180 mg/dL all other times of the day. Blood CAPILLARY BLOOD / Unknown 08/01/2024 8:35 PM EST 08/01/2024 8:36 PM EST Krystal Parker MD POINT OF CARE TEST O RDKAY Performing Organization Address [facility] de Phone Number [facility] [place] [address] * POC, GLUCOSE (08/01/2024 4:55 PM EST) Glucometer, POC 99 65 - 199 mg/dL 08/01/2024 4:56 PM EST [facility] Comment:Supplemental ranges: <140 mg/dL before meals <180 mg/dL all other times of the day. Blood CAPILLARY BLOOD / Unknown 08/01/2024 4:55 PM EST 08/01/2024 4:56 PM EST Krystal Parker MD POINT OF CARE TEST O JOSH Performing Organization Address [facility] Co de Phone Number [facility] [place] [address] * POC, GLUCOSE (08/01/2024 12:42 PM EST) Glucometer, POC 130 65 - 199 mg/dL 08/01/2024 12:43 PM EST [facility] Comment:Supplemental ranges: <140 mg/dL before meals <180 mg/dL all other times of the day. Blood CAPILLARY BLOOD / Unknown 08/01/2024 12:42 PM EST 08/01/2024 12:43 PM EST Krystal Parker MD POINT OF CARE TEST O RDERASHAY Performing Organization Address City/[facility]/ZIP Co de Phone Number [facility] [place] [address] * (ABNORMAL) Cooximetry, POC (08/01/2024 10:45 AM [...] TEST O RDKAY [facility] [place] [address] * Potassium (08/01/2024 8:20 AM EST) Potassium 4.0 3.5 - 5.0 mMol/L 08/01/2024 10:17 AM EST [facility] Blood ARTERIAL BLOOD / Unknown Venipuncture / Unknown 08/01/2024 8:20 AM EST 08/01/2024 8:30 AM EST Aubree Silverio MD CHEMISTRY ORDERABL ES Performing Organization Address City/[facility]/ZIP Co de Phone Number [facility] [place] [address] * POC, GLUCOSE (08/01/2024 7:44 AM EST) [facility] Glucometer, POC 86 65 - 199 mg/dL 08/01/2024 7:[address] [facility] Comment:Supplemental ranges: <140 mg/dL before meals <180 mg/dL all other times of the day. Blood CAPILLARY BLOOD / Unknown 08/01/2024 7:44 AM EST 08/01/2024 7:44 AM EST Krystal Parker MD POINT OF CARE TEST O RDERABLES Performing Organization Address [facility] Co de Phone Number [facility] [place] [address] * (ABNORMAL) CBC (with Diff) (08/01/2024 4:18 AM EST) [facility] White Blood Cell 8.51 4.00 - [...] HEMATOLOGY ORDERABLE S [facility] [place] [address] * Magnesium (08/01/2024 4:18 AM EST) Magnesium 0.74 0.69 - 1.07 mMol/L 08/01/2024 5:[address] [facility] Blood VENOUS BLOOD SPECIMEN / Unknown Venipuncture / Unknown 08/01/2024 4:18 AM EST 08/01/2024 4:29 AM EST Bridgette Stauffer MD CHEMISTRY ORDERABLES [facility] [place] [address] * (ABNORMAL) Basic Metabolic Panel (08/01/2024 4:18 [...] MD CHEMISTRY ORDERABLES [facility] [place] [address] * POC, GLUCOSE (07/31/2024 8:41 PM EST) [facility] Signature Glucometer, POC 73 65 - 199 mg/dL 07/31/2024 8:41 PM EST [facility] Comment:Supplemental ranges: <140 mg/dL before meals <180 mg/dL all other times of the day. Blood CAPILLARY BLOOD / Unknown 07/31/2024 8:41 PM EST 07/31/2024 8:41 PM EST Krystal Parker MD POINT OF CARE TEST O RDERABLES [facility] [place] [address] * CARDIAC CATHETERIZATION (07/31/2024 5:53 PM EST) Anatomical Region Laterality Modality Other Narrative 08/01/2024 12:37 PM EST ?[facility] ? Cardiac Catheterization/Intervention Report ? Patient Name: Korey Montoya Kyrie. ? Procedure Date: 07/31/2024 ? A #: [id number] ? Primary Physician: Maldonado Luis ? Case #: [id number] ? File Name: [id number] ? Catheterization Order Number: [id number] ? [facility] ? Final Report [place], [place] ? Patient Name: ? Korey Mittal. Jan ?ID#: ?[id number] ? : ?1950 ? Procedure Date: ? [...] ? Comments: ?Impella removed from the right TECHNOLOGY ASSISTANT with deployment of Perclose and ?Angioseal. [...] Korey Montoya Procedure Date: 07/31/2024 A #: [id number] Primary Physician: Maldonado Luis Case #: [id number] File Name: [id number] Catheterization Order Number: [id number] [facility] FinalReport [place], [place] Patient Name: Korey Montoya ID#:[id number] :1950 Procedure Date: July 31, 2024 Case [...] procedures. Comments: Impella removed from the right TECHNOLOGY ASSISTANT with deployment of Perclose and Angioseal. [...] * POC, GLUCOSE (07/31/2024 11:04 AM EST) [facility] Glucometer, POC 82 65 - 199 mg/dL 07/31/2024 11:[address] [facility] Comment:Supplemental ranges: <140 mg/dL before meals <180 mg/dL all other times of the day. Blood CAPILLARY BLOOD / Unknown 07/31/2024 11:04 AM EST 07/31/2024 11:04 AM EST Krystal Parker MD POINT OF CARE TEST O RDERABLES [facility] [place] [address] * (ABNORMAL) Blood Gas, Arterial POC (07/31/2024 [...] TEST O RDERABLES [facility] [place] [address] * POC, GLUCOSE (07/31/2024 7:47 AM EST) Glucometer, POC 82 65 - 199 mg/dL 07/31/2024 7:[address] [facility] Comment:Supplemental ranges: <140 mg/dL before meals <180 mg/dL all other times of the day. Blood CAPILLARY BLOOD / Unknown 07/31/2024 7:47 AM EST 07/31/2024 7:53 AM EST Krystal Parker MD POINT OF CARE TEST O RDERABLES [facility] [place] [address] * (ABNORMAL) CBC (with Diff) (07/31/2024 1:08 [...] HEMATOLOGY ORDERABLE S [facility] [place] [address] * Magnesium (07/31/2024 1:08 AM EST) Pathologist [facility] Magnesium 0.89 0.69 - 1.07 mMol/L 07/31/2024 1:[address] [facility] Blood VENOUS BLOOD SPECIMEN / Unknown Venipuncture / Unknown 07/31/2024 1:08 AM EST 07/31/2024 1:18 AM EST Bridgette Stauffer MD CHEMISTRY ORDERABLES Performing Organization Address City/[facility]/ZIP Co de Phone Number [facility] [place] [address] * (ABNORMAL) Basic Metabolic Panel (07/31/2024 1:08 AM EST) [facility] Glucose 97 65 - 199 mg/dL [...] MD CHEMISTRY ORDERABLES [facility] [place] [address] * (ABNORMAL) Hepatic Function Panel (07/31/2024 1:08 [...] Parker MD CHEMISTRY ORDERABLES Performing Organization Address City/[facility]/ZIP Co de Phone Number [facility] [place] [address] * POC, GLUCOSE (07/30/2024 8:03 PM EST) Glucometer, POC 86 65 - 199 mg/dL 07/30/2024 8:03 PM EST [facility] Comment:Supplemental ranges: <140 mg/dL before meals <180 mg/dL all other times of the day. Blood CAPILLARY BLOOD / Unknown 07/30/2024 8:03 PM EST 07/30/2024 8:03 PM EST Krystal Parker MD POINT OF CARE TEST O RDERABLES Performing Organization Address [facility] Co de Phone Number [facility] [place] [address] * Potassium (07/30/2024 8:03 PM EST) Potassium 3.8 3.5 - 5.0 mMol/L 07/30/2024 9:13 PM EST [facility] Blood VENOUS BLOOD SPECIMEN / Unknown Venipuncture / Unknown 07/30/2024 8:03 PM EST 07/30/2024 8:22 PM EST Aubree Silverio MD CHEMISTRY ORDERABL ES Performing Organization Address [facility] Co de Phone Number [facility] [place] [address] * POC, GLUCOSE (07/30/2024 6:23 PM EST) Glucometer, POC 93 65 - 199 mg/dL 07/30/2024 6:24 PM EST [facility] Comment:Supplemental ranges: <140 mg/dL before meals <180 mg/dL all other times of the day. Blood CAPILLARY BLOOD / Unknown 07/30/2024 6:23 PM EST 07/30/2024 6:24 PM EST Krystal Parker MD POINT OF CARE TEST O RDERABLES Performing Organization Address City/[facility]/ZIP Co de Phone Number [facility] [place] [address] * POC, GLUCOSE (07/30/2024 5:08 PM EST) Glucometer, POC 78 65 - 199 mg/dL 07/30/2024 5:08 PM EST [facility] Comment:Supplemental ranges: <140 mg/dL before meals <180 mg/dL all other times of the day. Blood CAPILLARY BLOOD / Unknown 07/30/2024 5:08 PM EST 07/30/2024 5:08 PM EST Krystal Parker MD POINT OF CARE TEST O RDERABLES Performing Organization Address [facility]/ZIP Co de Phone Number [facility] [place] [address] * (ABNORMAL) Phosphorus (07/30/2024 3:08 PM EST) Phosphorus 2.1(L) 2.5 - 4.5 mg/dL 07/30/2024 3:58 PM EST [facility] Blood VENOUS BLOOD SPECIMEN / Unknown Venipuncture / Unknown 07/30/2024 3:08 PM EST 07/30/2024 3:12 PM EST Aubere Silverio MD CHEMISTRY ORDERABL ES Performing Organization Address City/[facility]/ZIP Co de Phone Number [facility] [place] [address] * Magnesium (07/30/2024 3:08 PM EST) Magnesium 0.90 0.69 - 1.07 mMol/L 07/30/2024 3:58 PM EST [facility] Blood VENOUS BLOOD SPECIMEN / Unknown Venipuncture / Unknown 07/30/2024 3:08 PM EST 07/30/2024 3:12 PM EST Aubree Silverio MD CHEMISTRY ORDERABL ES [facility] [place] [address] * (ABNORMAL) Basic Metabolic Panel (07/30/2024 3:08 PM EST) Pathologist [facility] Glucose 105 65 - 199 mg/dL 07/30/2024 [...] City/State/[facility] Co de Phone Number [facility] [place] [address] * ECHO LMTD W CONTRAST W LMTD SPEC DOPP COLOR DOPP (07/30/2024 11:42 AM EST) Anatomical Region Laterality Modality Cardiac Other 07/30/2024 10:2 2 AM EST Narrative 07/30/2024 12:34 PM EST [address] [place] [address] ? Echocardiogram Report Name: KOREY MONTOYA ? Study Date: 07/30/2024 10:22 AMBP: 124/66 mmHg : 1950 ? Height: 168 cm ? Account: [id number] Age: 74 yrs ? Weight: 65 kg Gender: Male ?BSA: 1.7 m2 Ordering Physician: Aubree Silverio MD Referring Physician: CHAPARRO FERRERA Performed By: OMERO Millan Reason For Study: ST elevation myocardial infarction involving left anterior descending (LAD) coronary artery Interpreting Fellow: Ivan Hernandez. Exam Location: [facility]. Interpretation Summary Left ventricle is severely [...] Compared to the overnight study by the used car salesperson fellow the impella position is stable. 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 Procedure Limited - 31247. Image enhancement Definity was used for both [...] Note Kathleen Banda MD - 07/30/2024 [address] [place] [id number] Echocardiogram Report Name: KOREY MONTOYA Kyrie Study Date: 410:22 AMBP: 124/66 mmHg : 1950 Height: 168 cm Account: [id number] Age: 74 yrs Weight: 65 kg Gender: Male BSA: 1.7 m2 Ordering Physician: Aubree Silverio MD Referring Physician: CHAPARRO FERRERA Performed By: OMERO Millan Reason For Study: ST elevation myocardial infarction involving leftanterior descending (LAD) coronary artery Interpreting Fellow: Ivan Hernandez. Exam Location: [facility]. Interpretation Summary Left ventricle is severely [...] Compared to the overnight study by the used car salesperson fellow the impella positionis stable. The global left ventricular systolic function has improvedpredominantly via recruitment outside the LAD territory which remains akinetic. Procedure Limited - 12865. Image enhancement Definity was used for both [...] CARE TEST ORDERABLES [facility] [place] [address] * (ABNORMAL) Blood Gas, Arterial POC (07/30/2024 8:16 AM EST) Pathologist [facility] pH, Arterial 7.44 7.35 - 7.45 07/30/2024 [...] CARE TEST ORDERABLES [facility] [place] [address] * (ABNORMAL) Troponin - Single (07/30/2024 8:09 [...] [facility] Test Catalog Troponin - https://[email or web address].testcatalog.org/catalogs/565/files/82581 Reference: Fourth Lequire Definition of Myocardial Infarction. Journal of the [place] College of Cardiology 2018;72:6397-9783 Blood VENOUS BLOOD SPECIMEN / Unknown Venipuncture / Unknown 07/30/2024 8:09 AM EST 07/30/2024 8:26 AM EST Aubree Silverio MD CHEMISTRY ORDERABL ES Performing Organization Address [facility] Co de Phone Number [facility] [place] [address] * POC, GLUCOSE (07/30/2024 7:40 AM EST) Pathologist [facility] Glucometer, POC 111 65 - 199 mg/dL 07/30/2024 7:40 AM EST [facility] Comment:Supplemental ranges: <140 mg/dL before meals <180 mg/dL all other times of the day. Blood CAPILLARY BLOOD / Unknown 07/30/2024 7:40 AM EST 07/30/2024 7:40 AM EST Aubree Silverio MD POINT OF CARE TEST ORDERABLES Performing Organization Address [facility] Co de Phone Number [facility] [place] [address] * (ABNORMAL) CBC (with Diff) (07/30/2024 2:11 [...] HEMATOLOGY ORDERABLE S [facility] [place] [address] * Magnesium (07/30/2024 2:11 AM EST) Magnesium 1.01 0.69 - 1.07 mMol/L 07/30/2024 2:[address] [facility] Blood VENOUS BLOOD SPECIMEN / Unknown Venipuncture / Unknown 07/30/2024 2:11 AM EST 07/30/2024 2:22 AM EST Bridgette Stauffer MD CHEMISTRY ORDERABLES [facility] [place] [address] * (ABNORMAL) Basic Metabolic Panel (07/30/2024 2:11 [...] MD CHEMISTRY ORDERABLES Performing Organization Address City/State/[facility] Co ms Phone Number [facility] [place] [address] * (ABNORMAL) Cooximetry, POC (07/30/2024 1:00 AM [...] CARE TEST ORDERABLES [facility] [place] [address] * (ABNORMAL) Blood Gas, Arterial POC (07/30/2024 [...] City/State/[facility] Co de Phone Number [facility] [place] [address] * (ABNORMAL) Troponin - Single (07/29/2024 10:31 [...] [facility] Test Catalog Troponin - https://[email or web address].org/catalogs/565/files/46587 Reference: Fourth Lequire Definition of Myocardial Infarction. Journal of the [place] College of Cardiology 2018;72:2038-7145 Blood VENOUS BLOOD SPECIMEN / Unknown Venipuncture / Unknown 07/29/2024 10:31 PM EST 07/29/2024 10:36 PM EST Yrn Velazquez MD CHEMISTRY ORDERABL ES Performing Organization Address [facility]/ZIP Co de Phone Number [facility] [place] [address] * Potassium (07/29/2024 8:11 PM EST) Potassium 4.1 3.5 - 5.0 mMol/L 07/29/2024 8:52 PM EST [facility] Blood VENOUS BLOOD SPECIMEN / Unknown Venipuncture / Unknown 07/29/2024 8:11 PM EST 07/29/2024 8:16 PM EST Aubree Silverio MD CHEMISTRY ORDERABL ES Performing Organization Address City/[facility]/ZIP Co de Phone Number [facility] [place] [address] * (ABNORMAL) Troponin - Single (07/29/2024 8:11 [...] [facility] Test Catalog Troponin - https://one-.testcatalog.org/catalogs/565/files/96921 Reference: Fourth Lequire Definition of Myocardial Infarction. Journal of the [place] College of Cardiology 2018;72:4877-4207 Blood VENOUS BLOOD SPECIMEN / Unknown Venipuncture / Unknown 07/29/2024 8:11 PM EST 07/29/2024 8:16 PM EST Aubree Silverio MD CHEMISTRY ORDERABL ES Performing Organization Address City/[facility]/ZIP Co de Phone Number [facility] [place] [address] * (ABNORMAL) Phosphorus (07/29/2024 8:11 PM EST) Phosphorus 2.1(L) 2.5 - 4.5 mg/dL 07/29/2024 8:52 PM EST [facility] Blood VENOUS BLOOD SPECIMEN / Unknown Venipuncture / Unknown 07/29/2024 8:11 PM EST 07/29/2024 8:16 PM EST Aubree Silverio MD CHEMISTRY ORDERABL ES [facility] [place] [address] * POC, GLUCOSE (07/29/2024 8:09 PM EST) Glucometer, POC 142 65 - 199 mg/dL 07/29/2024 8:09 PM EST [facility] Comment:Supplemental ranges: <140 mg/dL before meals <180 mg/dL all other times of the day. Blood CAPILLARY BLOOD / Unknown 07/29/2024 8:09 PM EST 07/29/2024 8:09 PM EST Aubree Silverio MD POINT OF CARE TEST ORDERABLES Performing Organization Address City/[facility]/ZIP Co de Phone Number [facility] [place] [address] * ABORH RECHECK (07/29/2024 6:43 PM EST) Pathologist [facility] ABORH Recheck AB POSITIVE 07/29/2024 10:13 PM EST [facility] Blood VENOUS BLOOD SPECIMEN / Unknown Venipuncture / Unknown 07/29/2024 6:43 PM EST 07/29/2024 7:15 PM EST Aubree Silverio MD BLOOD BANK LAB ORD ERABLES Performing Organization Address City/[facility] Co de Phone Number [facility] [place] [address] * POC, GLUCOSE (07/29/2024 5:57 PM EST) [facility] Glucometer, POC 166 65 - 199 mg/dL 07/29/2024 5:57 PM EST [facility] Comment:Supplemental ranges: <140 mg/dL before meals <180 mg/dL all other times of the day. Blood CAPILLARY BLOOD / Unknown 07/29/2024 5:57 PM EST 07/29/2024 5:57 PM EST Aubree Silverio MD POINT OF CARE TEST ORDERABLES Performing Organization Address City/[facility]/ZIP Co de Phone Number [facility] [place] [address] * Type and screen ([facility]P/MAGALIE) (07/29/2024 5:56 PM EST) Pathologist [facility] ABORH Type AB POSITIVE 07/29/2024 9:44 PM EST [facility] PATIENT HISTORY Not Found 07/29/2024 9:44 PM EST [facility] Expires at [id number] on: 08/01/2024 07/29/2024 9:44 PM EST [facility] ANTIBODY SCREEN AUTOMATED Negative 07/29/2024 9:44 PM EST [facility] T&S only valid at [facility] 07/29/2024 9:44 PM EST [facility] Blood VENOUS BLOOD SPECIMEN / Unknown Venipuncture / Unknown 07/29/2024 5:56 PM EST 07/29/2024 6:07 PM EST Narrative [facility] - 07/29/2024 9:44 PM EST This Type and Screen result is only valid at the [facility] Aubree Silverio MD BLOOD BANK LAB ORD ERABLES [facility] [place] [address] * (ABNORMAL) Troponin - Single (07/29/2024 4:52 PM EST) [facility] Troponin-T, High Sensitivity >10,000(H ) <=22 [...] [facility] Test Catalog Troponin - [email or web address]/catalogs/565/files/17011 Reference: Fourth Lequire Definition of Myocardial Infarction. Journal of the [place] College [employer] 2018;72:2754-1907 Blood VENOUS BLOOD SPECIMEN / Unknown Venipuncture / Unknown 07/29/2024 4:52 PM EST 07/29/2024 4:57 PM EST Aubree Silverio MD CHEMISTRY ORDERABL ES Performing Organization Address City/[facility]/ZIP Co de Phone Number [facility] [place] [address] * EKG 12 Lead (07/29/2024 4:21 PM EST) Ventricular rate 72 BPM MUSE SYSTEM Atrial Rate 72 BPM MUSE SYSTEM P-R Interval 168 ms MUSE SYSTEM QRS Duration 82 ms MUSE SYSTEM Q-T Interval 392 ms MUSE SYSTEM QTC Calculated (Bezet) 429 ms MUSE SYSTEM Calculated P Hammond 71 degrees MUSE SYSTEM Calculated R Hammond 77 degrees MUSE SYSTEM Calculated T Hammond 28 degrees MUSE SYSTEM INTERPRETATION Sinus rhythm [...] Silverio MD ECG ORDERABLES Performing Organization Address City/[facility]/ZIP Co de Phone Number MUSE SYSTEM [...] CARE TEST ORDERABLES [facility] [place] [address] * POC, GLUCOSE (07/29/2024 4:19 PM EST) Glucometer, POC 185 65 - 199 mg/dL 07/29/2024 4:19 PM EST [facility] Comment:Supplemental ranges: <140 mg/dL before meals <180 mg/dL all other times of the day. Blood CAPILLARY BLOOD / Unknown 07/29/2024 4:19 PM EST 07/29/2024 4:19 PM EST Aubree Silverio MD POINT OF CARE TEST ORDERABLES Performing Organization Address [facility]/ZIP Co de Phone Number [facility] [place] [address] * Blood culture (07/29/2024 4:08 PM EST) Blood Culture No growth at 120 hours 08/03/2024 5:01 PM EST [facility] Blood VENOUS BLOOD SPECIMEN / Unknown Venipuncture / Unknown 07/29/2024 4:08 PM EST 07/29/2024 4:15 PM EST Aubree Silverio MD MICROBIOLOGY - BLO OD ORDERABLES Performing Organization Address City/[facility]/ZIP Co de Phone Number [facility] [place] [address] * Blood culture (07/29/2024 4:08 PM EST) Blood Culture No growth at 120 hours 08/03/2024 5:01 PM EST [facility] Blood VENOUS BLOOD SPECIMEN / Unknown Venipuncture / Unknown 07/29/2024 4:08 PM EST 07/29/2024 4:26 PM EST Aubree Silverio MD MICROBIOLOGY - BLO OD ORDERABLES [facility] [place] [address] * XR Chest One View (07/29/2024 2:30 PM EST) Pathologist GILUPI WORKSTATION ID [id number] RAD Anatomical Region Laterality Modality Chest N/A [...] who have questions please contact the health medication care manager that requested your imaging first. [...] patients who have questions please contactthe health medication care manager that requested your imaging first. Electronically signed by: Chris Candelaria MD, [facility]([phone]), at 07/29/2024 3:21 PM Vahe Marvin MD IMG DX ORDERABLES * (ABNORMAL) APTT (07/29/2024 2:03 PM EST) Partial Thromboplastin Time >160(HHH) 25 - 37 sec 07/29/2024 2:56 PM EST [facility] Blood VENOUS BLOOD SPECIMEN / Unknown Venipuncture / Unknown 07/29/2024 2:03 PM EST 07/29/2024 2:13 PM EST Vahe Marvin MD HEMATOLOGY ORDERABLE S [facility] [place] [address] * (ABNORMAL) Prothrombin Time (07/29/2024 2:03 PM [...] MD HEMATOLOGY ORDERABLE S Performing Organization Address City/[facility]/ZIP Co de Phone Number [facility] [place] [address] * CRP, acute inflammation (07/29/2024 2:03 PM EST) [facility] C-Reactive Protein <3.0 <=4.9 mg/L 07/29/2024 2:52 PM EST [facility] Blood VENOUS BLOOD SPECIMEN / Unknown Venipuncture / Unknown 07/29/2024 2:03 PM EST 07/29/2024 2:14 PM EST Vahe Marvin MD CHEMISTRY ORDERABLES [facility] [place] [address] * Lipid Panel (Reflex Direct LDL) (07/29/2024 2:03 PM EST) Pathologist [facility] Cholesterol, Total 133 mg/dL 07/29/2024 2:52 PM [...] PM EST 07/29/2024 2:14 PM EST [facility] LABORATORY - 07/29/2024 2:52 [...] ACC/AHA Guidelines (most recently Rolf et al. [facility] 06/15/22): * For individuals with atherosclerotic cardiovascular [...] Marvin MD CHEMISTRY ORDERABLES Performing Organization Address City/[facility]/ZIP Co de Phone Number [facility] [place] [address] * TSH Laporte (07/29/2024 2:03 PM EST) Thyroid Stimulating Hormone 0.70 0.27 - 4.20 mcIU/mL 07/29/2024 2:52 PM EST [facility] Blood VENOUS BLOOD SPECIMEN / Unknown Venipuncture / Unknown 07/29/2024 2:03 PM EST 07/29/2024 2:14 PM EST Vahe Marvin MD CHEMISTRY ORDERABLES Performing Organization Address City/[facility]/ZIP Co de Phone Number [facility] [place] [address] * Hemoglobin A1c (07/29/2024 2:03 PM EST) [facility] Hemoglobin A1c 5.3 4.3 - 5.6 [...] red blood cell turnover may not be territory account representative of glycemic control. Reference Interval: [...] into estimated average glucose values. ??Diabetes Care 2008:31(8):8658-4685. Additional resources are available on the ADA website (diabetes.org). Vahe Marvin MD CHEMISTRY ORDERABLES Performing Organization Address City/[facility]/ZIP Co de Phone Number [facility] [place] [address] * (ABNORMAL) CBC (with Diff) (07/29/2024 2:03 PM EST) [facility] White Blood Cell 19.50(H) 4.00 - [...] HEMATOLOGY ORDERABLE S [facility] [place] [address] * Phosphorus (07/29/2024 2:03 PM EST) Phosphorus 2.5 2.5 - 4.5 mg/dL 07/29/2024 2:[address] [facility] Blood VENOUS BLOOD SPECIMEN / Unknown Venipuncture / Unknown 07/29/2024 2:03 PM EST 07/29/2024 2:14 PM EST Vahe Marvin MD CHEMISTRY ORDERABLES Performing Organization Address [facility] Co de Phone Number [facility] [place] [address] * Magnesium (07/29/2024 2:03 PM EST) Magnesium 0.70 0.69 - 1.07 mMol/L 07/29/2024 2:52 PM EST [facility] Blood VENOUS BLOOD SPECIMEN / Unknown Venipuncture / Unknown 07/29/2024 2:03 PM EST 07/29/2024 2:14 PM EST Vahe Marvin MD CHEMISTRY ORDERABLES Performing Organization Address [facility] Co de Phone Number [facility] [place] [address] * (ABNORMAL) Comprehensive metabolic panel (07/29/2024 2:03 [...] MD CHEMISTRY ORDERABLES [facility] [place] [address] * (ABNORMAL) Troponin - Single (07/29/2024 2:03 [...] [facility] Test Catalog Troponin - https://[email or web address]/catalogs/565/files/65343 Reference: Fourth Lequire Definition of Myocardial Infarction. Journal of the [place] College of Cardiology 2018;72:5408-7500 Blood VENOUS BLOOD SPECIMEN / Unknown Venipuncture / Unknown 07/29/2024 2:03 PM EST 07/29/2024 2:14 PM EST Vahe Marvin MD CHEMISTRY ORDERABLES [facility] [place] [address] * (ABNORMAL) Blood Gas, Venous POC (07/29/2024 [...] CARE TEST O RDERABLES Performing Organization Address [facility]/State/[facility] Co de Phone Number [facility] [place] [address] * CARDIAC CATHETERIZATION (07/29/2024 1:20 PM EST) Anatomical Region Laterality Modality Other Narrative 07/29/2024 2:02 PM EST ?[facility] ? Cardiac Catheterization/Intervention Report ? Patient Name: Korey Montoya Kyrie. ? Procedure Date: 07/29/2024 ? A #: [id number] ? Primary Physician: Vahe Marvin ? Case #: [id number] ? File Name: [id number] ? Catheterization Order Number: [id number] ? [facility] ? Final Report [place], [place] ? Patient Name: ? Korey Mittal. Jan ?ID#: ?[id number] ? : ?1950 ? Procedure Date: ? [...] procedure was Emergent. The indication for ?the blood bank laboratory professional visit is ACS less than or equal [...] 3.5 guiding catheter and a 3.5 Fr [place] [address] ??20 Mhz using ?Manual pullback. ??Imaging [...] ? A premounted 3.00 x 22 mm Beaumont Dukes (LOW) was deployed ? with a maximum [...] atmospheres. ??A premounted 3.00 x 08 mm [place] Dukes (LOW) ? was deployed with a maximum [...] dose administered prior to arrival in the blood bank laboratory professional. ?Recommended anti-platelet/anti-thrombotic regimen: ?Start aspirin 81 mg daily now and continue for 12 months then stop. ?Start clopidogrel 75 mg daily now and continue for indefinitely. ?These recommendations are made at the time of the intervention. Patient ?and provider preferences or a changing clinical situation may require ?modification of this regimen. Consult [facility]ventional [facility] for ?questions. ?The 1 year [...] able ?to start weaning his inotropes/vasopressors. A [place] Colette catheter was ?placed demonstrating improvement in his hemodynamics and the impella site ?was perclosed and hemostatic gauze was applied with excellent result. ?WIll transfer to the [facility] for further management. ?The [...] ventricular assist device insertion, right heart ?catheterization, [place] (flow directed cath) insertion, access site ?angiography, vascular ultrasound, venous line / sheath insert and vascular ?closure device. ? Vahe S Shavonne, M.D. ? Electronically Signed by: Vahe S Shavonne, M.D. ? Report Finalized: 07/29/2024 ??13:55 ? Report Last Ammended: 09/20/2024 ??15:21 ? Procedure Note Vahe Marvin MD - 09/20/2024 [facility] Cardiac Catheterization/Intervention Report Patient Name: Korey Montoya Procedure Date: 07/29/2024 A #: [id number] Primary Physician: Vahe aMrvin Case #: [id number] File Name: [id number] Catheterization Order Number: [id number] [facility] FinalReport [place], [place] Patient Name: Korey Montoya ID#:[id number] :1950 Procedure Date: July 29, 2024 Case [...] diagnostic procedure was Emergent. Theindication for the blood bank laboratory professional visit is ACS less than or equal [...] 3.5 guiding catheter and a 3.5 Fr [place] [address] 20 Mhzusing Manual pullback. Imaging was [...] priority for the procedure was Emergent.The [facility] indication for the procedure was STEMI-Immediate [...] The lesion was predilated with a 2.00mm [id number] MM balloon with a maximum inflation pressure of 12atmospheres. A premounted 3.00 x 22 mm Beaumont Dukes (LOW) wasdeployed with a maximum inflation pressure [...] atmospheres. A premounted 3.00 x 08 mm [place] Dukes(LOW) was deployed with a maximum inflation pressure [...] dose administered prior to arrival in the blood bank laboratory professional. Recommended anti-platelet/anti-thrombotic regimen: Start aspirin 81 mg daily now and continue for 12 months then stop. Start clopidogrel 75 mg daily now and continue for indefinitely. These recommendations are made at the time of the intervention.Patient and provider preferences or a changing clinical situation mayrequire modification of this regimen. Consult [facility] Inter[facility]iologyfor questions. The 1 year bleeding [...] wereable to start weaning his inotropes/vasopressors. A [place] Colette catheterwas placed demonstrating improvement in his [...] ventricular assist device insertion, right heart catheterization, [place] (flow directed cath) insertion, access site angiography, [...] TEST O RDERABLES [facility] [place] [address] * (ABNORMAL) BLOOD GAS, POC (07/29/2024 12:12 [...] TEST O RDERABLES [facility] [place] [address] documented in this encounter Visit Diagnoses Not [...] Tonya Watson RN) 0934 (Given - Provider: Tnoya Watson RN) tamsulosin (Flomax) capsule 0.4 mg [...] Routine documented in this encounter Care Teams Relocation Commissioner Relationship Specialty Start Date End Date Yoel Artis APRN [address] [place] [address] PCP - General Internal Medicine 11/18/22 07/29/24 documented as of this encounter
--- OUTSIDE RECORDS SUMMARY | 2024-10-10 10:17 | XMS_ITS | Encounter Summary ---
[place] [address] Care Team Providers Care Odd Job Worker Name Role Phone Alexia Mtz FREDRICK Primary Care Provider [phone] Encounter Details Date Type Department Care Team (Late st Contact Info) Description 07/29/2024 External [place] [id number] Social History Tobacco Use Types Packs/Day Years Used Date Smoking Tobacco: Former Cigarettes Smokeless Tobacco: Never Alcohol Use Standard Drinks/Week Comments Not Currently 0 (1 standard drink = 0.6 oz pur e alcohol) [facility] Utilities Answer Date Recorded In the [...] 9:30 AM EST Appointment [place] [address] Mushtaq Murphy, FREDRICK 10/31/2024 11:00 AM EST Office Visit Cardiology at [address] [address] Mushtaq Murphy, FREDRICK documented as of this encounter Procedures Procedure Name Priority Date/Time Associated Diagnosis Comments MISC EXTERNAL CARDIOLOGY RESULT Routine 07/29/2024 10:13 AM EST documented in this encounter Results * External Cardiology Result (07/29/2024 10:13 AM EST) Anatomical Region Laterality Modality Other Historical Provider EXTERNAL CARDIOLO GY RESULT documented in this encounter Visit Diagnoses Not on filedocumented in this encounter Care Teams Odd Job Worker Relationship Specialty Start Date End Date Alexia Mtz APRN [address] [place] [address] PCP - General Family Medicine 07/30/24 documented as of this encounter
--- OUTSIDE RECORDS SUMMARY | 2024-10-10 10:17 | XMS_ITS | Encounter Summary ---
[place] [address] Care Team Providers Care Automation Consultant Name Role Phone Yoel Artis FREDRICK Primary Care Provider [phone] Encounter Details Date Type Department Care Team (Late st Contact Info) Description 01/16/2024 Interpretation Only [facility] [address] [place] [address] Chaparro Montana MD [address] [place] [address] Social History Tobacco Use Types Packs/Day Years [...] 9:30 AM EST Appointment Non-[place] [address] Mushtaq Murphy APRN 10/31/2024 11:00 AM EST Office Visit Cardiology at [address] [address] Mushtaq Murphy, GAME BREEDING FARM MANAGER documented as of this encounter Procedures Procedure Name Priority Date/Time Associated Diagnosis Comments CT HEAD WO CONTRAST (GENERIC) STAT 01/16/2024 4:17 PM EDT documented in this encounter Results * CT Head wo Contrast (Generic) (01/16/2024 4:17 PM EDT) PT CLASS E RAD ADMITDTTM [id number] RAD PT RAD MD INFO [id number]^Haniss henry^Chaparro RAD EXAM DESC CTHEAD^CT Head w/o [...] questions please contact the health customer care consultant that requested your imaging first. ? Electronically signed by: Alejandro Tenorio MD, [facility] ([phone]), at 01/16/2024 4:25 PM Narrative 01/16/2024 4:25 [...] have questions please contactthe health customer care consultant that requested your imaging first. Electronically signed by: Alejandro Tenorio MD, [facility]([phone]), at 01/16/2024 4:25 PM Chaparro Montana MD IMG CT ORDERABLES documented in this encounter Visit Diagnoses Not on filedocumented in this encounter Care Teams Automation Consultant Relationship Specialty Start Date End Date Yoel Artis APRN [address] [place] [address] PCP - General Internal Medicine 11/18/22 07/29/24 documented as of this encounter
--- OUTSIDE RECORDS SUMMARY | 2024-10-10 10:17 | XMS_ITS | Encounter Summary ---
[place] [address] Care Team Providers Care Hand Grinder Name Role Phone Anibal Mtz MD Primary Care Provider [phone] Encounter Details Date Type Department Care Team (Late st Contact Info) Description 11/08/2022 [facility] Only [address] [address] Eve Frost MD [address] [place] [phone] Social History Tobacco Use Types Packs/Day Years [...] 9:30 AM EST Appointment [place] [address] Mushtaq Murphy APRN 10/31/2024 11:00 AM EST Office Visit Cardiology at [address] [address] Mushtaq Murphy, ELECTRIC TAPE SLITTER documented as of this encounter Procedures Procedure Name Priority Date/Time Associated Diagnosis Comments XR CHEST PA AND LATERAL STAT 11/08/2022 10:34 AM EST documented in this encounter Results * XR Chest PA & Lateral (Generic) (11/08/2022 10:34 AM EST) PT CLASS E DH RAD ADMITDTTM RAD PT RAD INFO [id number]^C HANDER^SUNEE R RAD EXAM DESC XCXR2^XR CHEST [...] questions please contact the health health care liaison that requested your imaging first. ? Narrative [...] have questions please contactthe health health care liaison that requested your imaging first. Eve Frost MD IMG DX ORDERABLES documented in this encounter Visit Diagnoses Not on filedocumented in this encounter Care Teams Hand Grinder Relationship Specialty Start Date End Date Anibal Mtz MD [address] [place] [address] PCP - General Family Medicine 01/17/19 11/17/22 documented as of this encounter
--- OUTSIDE RECORDS SUMMARY | 2024-10-10 10:17 | XMS_ITS | Encounter Summary ---
[place] [address] Care Team Providers Care Operations And Maintenance Specialist Name Role Phone Yoel Artis FREDRICK Primary Care Provider [phone] Reason for Visit * Auth/Cert (Routine) Specialty Diagnoses / Procedures Referred By Theodore t Referred To Contact Diagnoses Anal spasm Fecal smearing Constipation, unspecified Rectal pain, fecal smearing Procedures PRO COLONOSCOPY, DIAGNOSTIC PRO COLONOSCOPY, BIOPSY PRO COLONOSCOPY, REMV LESN, SNARE COLONOSCOPY, DIAGNOSTIC (WRVU 3.26) Brandan Mcgovern MD [facility] [place] [address] [facility] Referral ID Status Reason Start Date Expiration Date Visits Re quested Visits Authorized [id number] 1 1 Encounter Details Date Type Department Care Team (Late st Contact Info) Description 08/30/2023 11:00 AM EST - 08/30/2023 12:00 PM EST Surgery [place] [address] Brandan Mcgovern MD [facility] [place] [address] COLONOSCOPY, POLYPECTOMY, REMOVAL LESION BY SNARE (WRVU [...] occurs, please contact your Doctor. Please call [phone] before 8pm Mon-Fri with problems, questions or concerns. If you call after 8pm or on weekends, call the Hospital at [phone] and ask to speak to the Vegetable Cutter reinforcing iron worker helper and the forge operator helper will contact that person for you. When should you call for help? Call [phone] anytime you think you may need emergency [...] learn more? [facility] View your After Visit Summary and more online at [email or web address] If you would like to provide feedback about your hospital experience, please call the Office of Patient and Family Relations at . If you have received this After Visit Summary in error, please immediately return it in person to the department, or notify the [facility] Privacy Office by calling toll free at between the hours of 8AM and 5PM to arrange for our retrieval of the documents at no cost to you. Content Version: 12.2 ?? [phone] [employer]. Care instructions adapted under license by [facility]. If you have questions about a medical condition or this instruction, always ask your healthcare professional. [employer] disclaims any warranty or liability for your [...] evening. 04/17/2023 08/04/2024 nitroGLYcerin (NITROLINGUAL) 400 mcg/spray [place], Non-AerosolIndications:P roctalgia fugax,Fecal smearing,Constipation, unspecified constipation [...] 9:30 AM EST Appointment Non-[place] [phone] Mushtaq Murphy APRN 10/31/2024 11:00 AM EST Office Visit Cardiology at [address] [phone] Mushtaq Murphy APRN documented as of this encounter Procedures Procedure Name Priority Date/Time Associated Diagnosis Comments SPECIMEN TO PATHOLOGY Routine 08/30/2023 11:23 AM EST SURGICAL PATHOLOGY REPORT Routine 08/30/2023 11:21 AM EST COLONOSCOPY Routine 08/30/2023 10:57 AM EST Colonoscopy, Antonieta Valadez ([id number]) 08/30/2023 10:44 AM EST Proctalgia fugax Fecal smearing Constipation, unspecified constipation type documented in this encounter Results * Specimen to Pathology (08/30/2023 11:23 AM EST) AP Specimen 08/30/2023 11:2 3 AM EST 08/30/2023 11:23 AM EST Narrative [facility] - 08/30/2023 11:23 AM EST Specimen requisition ordered. ??Separate Pathology report to follow Brandan Mcgovern MD PATHOLOGY/CYTOLOGY O RDERASHAY [facility] [place] [address] * Surgical Pathology Report (08/30/2023 11:21 AM EST) Final Diagnosis [id number] ? Location: 4T; EA12; A The signing pathologist has (i) examined the relevant preparation(s) for the specimen(s) and (ii) rendered or confirmed the diagnosis(es). . ?Surgical Pathology DIAGNOSIS A - Sigmoid colon polyp, resection (Multiple): - ??Tubular adenoma. CR-PX Electronically signed by: ?Blake ORTEGA PhD, Yulia Verified: ??09/08/2023 14:48 ??Pathologist Performed at: ??-[facility] Dept. of Pathology, [place] [address] Special Warfare Boat Operator: Fercho Chan MD, AP, ??CLIA Certificate: [id number] SPECIMEN(S) SUBMITTED A - Sigmoid colon polyp, [...] EST Brandan Mcgovern MD PATHOLOGY/CYTOLOGY Veronica MORENO [facility] [place] [address] [facility] [place] [address] * COLONOSCOPY (08/30/2023 10:57 AM EST) COLONOSCOPY [facility] Endoscopy Procedure Date: 08/30/2023 10:57 AM ? Patient Name: Korey Montoya ? Date of : 1950 ? Age: 73 ? Order #: [id number] ? Instrument Name: [id number] ? Procedure: ? Colonoscopy Indications: ? Rectal [...] preparation was evaluated ? using the BBPS (Dryden Bowel ? Preparation Scale) with scores of: [...] RN) documented in this encounter Care Teams Operations And Maintenance Specialist Relationship Specialty Start Date End Date Yoel Artis APRN [address] [place] [address] PCP - General Internal Medicine 11/18/22 07/29/24 documented as of this encounter
--- OUTSIDE RECORDS SUMMARY | 2024-10-10 10:17 | XMS_ITS | Encounter Summary ---
[place] [address] Care Team Providers Care Librarian Helper Name Role Phone Unknown Primary Care Provider Unavailabl e Encounter Details Date Type Department Care Team (Late st Contact Info) Description 12/03/2018 Interpretation Only [address] [phone] Ac Albrecht PA [address] [place] [address] [place] [address] Social History Tobacco Use Types Packs/Day Years [...] 9:30 AM EST Appointment Non-[place] [address] Mushtaq Murphy APRN 10/31/2024 11:00 AM EST Office Visit Cardiology at [address] [address] Mushtaq Murphy APRN documented as [...] below. ? Electronically signed by: Darvin Noyola [facility] ([phone]), at 12/03/2018 1:33 PM Narrative 12/03/2018 1:38 [...] number below. Electronically signed by: Darvin Noyola [facility]([phone]), at 12/03/2018 1:33 PM Ac SERRANO IMG DX ORDERABLES documented in this encounter Visit Diagnoses Not on filedocumented in this encounter Care Teams Librarian Helper Relationship Specialty Start Date End Date Unknown None PCP - General 08/04/10 01/16/19 documented as of this encounter
== END 2024-10-12 23:59 | disposition home or self-care (01) ==
LOC: CR 10:12
PROVIDERS: PCP Nurse Practitioner Primary Care; Visit Provider Internal Medicine Cardiovascular Disease
DX: I21.3 ST elevation (STEMI) myocardial infarction of unspecified site (principal); Z95.2 Presence of prosthetic heart valve; Z51.89 Encounter for other specified aftercare
CPT/HCPCS: S9472

== ENCOUNTER 2024-11-09 10:11 | Outpatient (RCR) | payer MEDICARE, OTHER, SELFPAY ==
--- OUTSIDE RECORDS SUMMARY | 2024-10-15 10:00 | XMS_ITS | Encounter Summary ---
[place] [address] Care Team Providers Care Slack Cooper Name Role Phone Alexia Mtz FREDRICK Primary Care Provider [phone] Reason for Referral * Diagnostic Test (Routine) - Authorized Specialty Diagnoses / Procedures [facility] Referred To Contact Cardiology Diagnoses HFrEF (heart failure with reduced ejection fraction) Procedures Echocardiogram Transthoracic Mushtaq Royal APRN [facility] [place] [address] Referral ID Status Reason Start Date Expiration Date Visits Requested Visits Authorized [id number] Authorized Specialty Service Requested 10/02/2024 10/02/2025 1 1 * Consultation (Routine) - Closed Specialty Diagnoses / Procedures [facility] Referred To Contact Cardiology Diagnoses HFrEF (heart failure with reduced ejection fraction) ST elevation myocardial infarction involving left anterior descending (LAD) coronary artery Mushtaq Royal APRN [facility] [place] [address] Referral ID Status Reason Start Date Expiration Date V isits Requested Visits Authorized [id number] Closed Consult, Test & Treat 10/02/2024 10/02/2025 36 36 * Diagnostic Test (Routine) - Closed Specialty Diagnoses / Procedures Referred By Contac t Referred To Contact Cardiology Diagnoses HFrEF (heart failure with reduced ejection fraction) Procedures Echocardiogram Transthoracic Mushtaq Royal APRN [facility] [place] [address] Referral ID Status Reason Start Date Expiration Date V isits Requested Visits Authorized [id number] Closed Specialty Service Requested 10/01/2024 10/01/2025 1 1 * Consultation (Routine) - Authorized Specialty Diagnoses / Procedures Referred By Contac t Referred To Contact Diagnoses HFrEF (heart failure with reduced ejection fraction) NUTRITION Initial MNT Mushtaq Royal APRN Copeland, Jean M, [facility] [place] [address] Referral ID Status Reason Start Date Expiration Date Visits Requested Visits Authorized [id number] Authorized Continuity of Care 10/01/2024 10/01/2025 1 1 Reason for Visit * Consultation (Routine) - Closed Specialty Diagnoses / Procedures Referred By Contac t Referred To Contact Cardiology Diagnoses HFrEF (heart failure with reduced ejection fraction) [facility] S/P D/C acute HFrEF Sanjiv Villagran MD [facility] [place] [address] Mushtaq Royal APRN [facility] [place] [address] Referral ID Status Reason Start Date Expiration Date V isits Requested Visits Authorized [id number] Closed Consult, Test & Treat 08/04/2024 08/04/2025 1 1 Encounter Details Date Type Department Care Team (Late st Contact Info) Description 10/01/2024 10:00 AM EST Office Visit Cardiology at [address] [address] Mushtaq Royal APRN HFrEF (heart failure with reduced ejection fraction); ST elevation myocardial infarction involving left anterior descending (LAD) coronary artery Social History Tobacco Use Types Packs/Day Years Used Date Smoking Tobacco: Former Cigarettes Smokeless Tobacco: Never Alcohol Use Standard Drinks/Week Comments Not Currently 0 (1 standard drink = 0.6 oz pur e alcohol) [facility] Utilities Answer Date Recorded In [...] clinic for weight gain or any question [phone] documented in this encounter Progress Notes * Mushtaq Royal APRN - 10/01/2024 10:00 AM EST Images from the original note were not included. [facility] Section of Advanced Heart Failure Cardiology and Pulmonary Hypertension [facility] [place] [id number] Name: Korey Bermudez Date: 10/01/2024 Referring provider: Sanjiv Villagran MD [facility] [place] [address] History of Present Illness 74 y.o. male with a past medical history of: Ischemic cardiomyopathy EF 33% CAD STEMI - 07/31/2024 - PCI to LAD HLD HTN BPH Patient was admitted on 07/29/2024 after being airlifted by helicopter to [facility] due tofindings of ST elevation patient had awoken that morning with substernal chest pain with bilateral arm discomfort. Patient reported that his discomfort was aching in character was an 8/10. He was seen at the outside hospital anterior, inferior, and lateral ST elevation on EKG. On arrival to [facility] heunderwent left heart catheterization which showed 100% [...] placed and he was transferred to the [facility] for an initial cardiac index of 1.97 which improved to 2.2 after Impella placement. Patient required hemodynamic support with vasopressors and eventually on dobutamine. Patient remained in the [facility] until downgraded on 08/01/2021. Patient was discharged from [facility] on 08/04/2024 and presents today in the [...] mild AR. MRI Non invasive ischemic evaluation [facility] 07/29/2024: Left main normal and free of disease. LAD, single discrete total occlusion of the proximal segment, left circumflex is normal. Disease, RCA normal and free of disease. Drug-eluting stent to the proximal and distal LAD [facility] 07/29/2024: (prior to impella) RA 16, [...] 9:30 AM EST Appointment [place] [address] Mushtaq Royal APRN 10/31/2024 11:00 AM EST Office Visit Cardiology at [address] [address] Mushtaq Royal APRN Scheduled Orders Name Type [...] EST 10/01/2024 12:38 PM EST Mushtaq Royal ASSET PROTECTION DETECTIVE CHEMISTRY ORDERABLE S [facility] [place] [address] * Magnesium (10/01/2024 12:33 PM EST) Magnesium 0.94 0.69 - 1.07 mMol/L 10/01/2024 1:18 PM [facility] Blood VENOUS BLOOD SPECIMEN / Unknown Venipuncture / Unknown 10/01/2024 12:33 PM EST 10/01/2024 12:38 PM EST Mushtaq Royal ASSET PROTECTION DETECTIVE CHEMISTRY ORDERABLE S Performing Organization Address City/[facility]/ZIP Co de Phone Number [facility] [place] [address] * Comprehensive metabolic panel Non-fasting (10/01/2024 12:33 PM EST) Glucose 76 65 - 199 mg/dL 10/01/2024 1:18 PM EST [facility] Comment:Glucose Concentratio n >=200 mg/dL plus symptoms is consistent with Diabetes Mellitus. Blood Urea Nitrogen 17 10 - 20 mg/dL 10/01/2024 1:18 PM [facility] Creatinine 1.06 0.80 - 1.50 mg/dL 10/01/2024 1:18 PM EST [facility] Sodium 142 135 - 145 [...] m?? 10/01/2024 1:18 PM [facility] [...] No 10/01/2024 1:18 PM [facility] Blood VENOUS BLOOD SPECIMEN / Unknown Venipuncture / Unknown 10/01/2024 12:33 PM EST 10/01/2024 12:38 PM EST Mushtaq Royal ASSET PROTECTION DETECTIVE CHEMISTRY ORDERABLE S [facility] [place] [address] * ECHO LMTD W CONTRAST W LMTD SPEC DOPP COLOR DOPP (10/01/2024 12:15 PM EST) EF 33 HEARTLAB SYSTEM Anatomical Region Laterality Modality Cardiac Other 10/01/2024 11:0 6 AM EST Narrative 10/01/2024 1:22 PM EST [address] [place] [address] ? Echocardiogram Report Name: KOREY BERMUDEZ ? Study Date: 10/01/2024 11:06 AMBP: 119/78 mmHg : 1950 ? Height: 168 cm ? Account: [id number] Age: 74 yrs ? Weight: 62 kg Gender: Male ?BSA: 1.7 m2 Ordering Physician: MUSHTAQ ROYAL Referring Physician: MUSHTAQ ROYAL Performed By: Joanne Damon, RCS Reason For Study: Chest pain Exam Location: [facility]. Interpretation Summary Left ventricular systolic function is [...] the findings are similar. Procedure Limited - 51732. Image enhancement Optison was used for left [...] Note Pablo Tam MD - 10/01/2024 [address] [place] [address] Echocardiogram Report Name: KOREY BERMUDEZ Study Date: 1:06 AMBP: 119/78 mmHg : 1950 Height: 168 cm Account: [id number] Age: 74 yrs Weight: 62 kg Gender: Male BSA: 1.7 m2 Ordering Physician: MUSHTAQ ROYAL Referring Physician: MUSHTAQ ROYAL Performed By: OMERO Baez Reason For Study: Chest pain Exam Location: [facility]. Interpretation Summary Left ventricular systolic function is [...] 07/30/2024, the findings aresimilar. Procedure Limited - [id number]. Image enhancement Optison was used for left [...] (Bezet) 428 ms MUSE SYSTEM Calculated P [employer] [place] [employer] 83 degrees MUSE SYSTEM Calculated R [place] [employer] [place] 88 degrees MUSE SYSTEM Calculated T [place] [employer] [place] 159 degrees MUSE SYSTEM INTERPRETATION Normal sinus rhythm Low voltage QRS 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) T wave abnormality, consider lateral ischemia ACUTE IN / STEMI Abnormal ECG When compared with [...] fraction) documented in this encounter Care Teams Slack Cooper Relationship Specialty Start Date End Date Alexia Mtz, FREDRICK [address] [place] [address] PCP - General Family Medicine 07/30/24 documented as of this encounter
--- OUTSIDE RECORDS SUMMARY | 2024-10-15 10:00 | XMS_ITS | Encounter Summary ---
Author Organization [facility] [place] [address] Care Team Providers Care Casket Coverer Name Role Phone Alexia Mtz FREDRICK Primary Care Provider Encounter Details Date Type Department Care Team (Late st Contact Info) Description 10/02/2024 Telephone Cardiology at [address] [phone] Tre Gibbons, RN Social History Tobacco Use Types Packs/Day Years Used Date Smoking Tobacco: Former Cigarettes Smokeless Tobacco: Never Alcohol Use Standard Drinks/Week Comments Not Currently 0 (1 standard drink = 0.6 oz pur e alcohol) [facility] Utilities Answer Date Recorded [...] time in the past 12 m [facility], were you homeless or living [...] out to Mr. Montoya in response to [employer] message sent by Mushtaq Murphy APRN: I was looking through your chart and would like to increase your spironolactone to a full tab of 25 mg. Mr. Montoya return verbalizes understanding of the above. We also reviewed the marine electrician team and I encouraged him to call us anytime, as well as record weight and blood pressure regularly. documented in this encounter Plan of Treatment Upcoming Encounters Date Type Department Care Team (Late st Contact Info) Description 10/31/2024 9:30 AM EST Appointment Non-Invasive [place] [address] Mushtaq Murphy APRN 10/31/2024 11:00 AM EST Office Visit Cardiology at [address] [address] Mushtaq Murphy APRN documented as of this encounter Visit Diagnoses Not on filedocumented in this encounter Care Teams Casket Coverer Relationship Specialty Start Date End Date Alexia Mtz, FREDRICK [address] [place] [address] PCP - General Family Medicine 07/30/24 documented as of this encounter
--- OUTSIDE RECORDS SUMMARY | 2024-10-15 10:00 | XMS_ITS | Encounter Summary ---
Author Organization [facility] [place] [address] Care Team Providers Care Cargo Tank Mechanic Name Role Phone Alexia Mtz FREDRICK Primary Care Provider [phone] Encounter Details Date Type Department Care Team [...] 9:30 AM EST Appointment Non-[place] [address] Mushtaq Murphy, GROUND EQUIPMENT MECHANIC 10/31/2024 11:00 AM EST Office Visit Cardiology at [address] [address] Mushtaq Murphy, GROUND EQUIPMENT MECHANIC documented as of this encounter Visit Diagnoses Not on filedocumented in this encounter Care Teams Cargo Tank Mechanic Relationship Specialty Start Date End Date Alexia Mtz APRN [address] [place] [address] PCP - General Family Medicine 07/30/24 documented as of this encounter
--- OUTSIDE RECORDS SUMMARY | 2024-10-15 10:00 | XMS_ITS | Encounter Summary ---
Author Organization [place] [address] Care Team Providers Care Knife Edger Name Role Phone ZoarAlexia shell FREDRICK Primary Care Provider [phone] Encounter Details Date Type Department Care Team (Late st Contact Info) Description 10/01/2024 Telephone Cardiology at [address] [phone] Chloe Ramos Social History Tobacco Use Types Packs/Day Years Used Date Smoking Tobacco: Former Cigarettes Smokeless Tobacco: Never Alcohol Use Standard Drinks/Week Comments Not Currently 0 (1 standard drink = 0.6 oz pur e alcohol) [facility] Utilities Answer Date Recorded In [...] AM EST Request for records faxed to [facility] at [phone]. documented in this encounter Plan of Treatment Upcoming Encounters Date Type Department Care Team (Late st Contact Info) Description 10/31/2024 9:30 AM EST Appointment Non-[place] [address] Mushtaq Murphy APRN 10/31/2024 11:00 AM EST Office Visit Cardiology at [address] [phone] Mushtaq Murphy APRN documented as of this encounter Visit Diagnoses Not on filedocumented in this encounter Care Teams Knife Edger Relationship Specialty Start Date End Date Alexia Mtz APRN [address] [place] [address] PCP - General Family Medicine 11/18/24 documented as of this encounter
--- OUTSIDE RECORDS SUMMARY | 2024-10-15 10:00 | XMS_ITS | Encounter Summary ---
[place] [address] Care Team Providers Care Farm Rancher Name Role Phone Alexia Mtz Shun ALCALA Primary Care Provider [phone] Reason for Referral * Diagnostic Test (Routine) - Closed Specialty Diagnoses / Procedures Referred By Contac t Referred To Contact Cardiology Diagnoses HFrEF (heart failure with reduced ejection fraction) Procedures Echocardiogram Transthoracic Rudolph Royal APRN [facility] [place] [address] Referral ID Status Reason Start Date Expiration Date V isits Requested Visits Authorized [id number] Closed Specialty Service Requested 10/01/2024 10/01/2025 1 1 Reason for Visit * Diagnostic Test (Routine) - Closed Specialty Diagnoses / Procedures Referred By Contac t Referred To Contact Cardiology Diagnoses HFrEF (heart failure with reduced ejection fraction) Procedures Echocardiogram Transthoracic Rudolph Royal APRN [facility] [place] [address] Referral ID Status Reason Start Date Expiration Date V isits Requested Visits Authorized [id number] Closed Specialty Service Requested 10/01/2024 10/01/2025 1 1 Encounter Details Date Type Department Care Team (Latest Contact Info) Description 10/01/2024 11:00 AM EST - 10/01/2024 11:59 PM EST Hospital Encounter Non-[place] [address] Rudolph Royal APRN HFrEF (heart failure with reduced ejection fraction) Discharge Disposition: Home Social History Tobacco Use Types Packs/Day Years Used Date Smoking Tobacco: Former Cigarettes Smokeless Tobacco: Never Alcohol Use Standard Drinks/Week Comments Not Currently 0 (1 standard drink = 0.6 oz pur e alcohol) [facility] Utilities Answer Date Recorded In the past 12 months has th e electric, gas, oil, or water [employer] threatened to shut off services in your [...] any time in the past 12 m [facility], were you homeless or living in a skilled nursing (including now)? No 07/30/2024 [facility] IPV Inpatient [...] 9:30 AM EST Appointment Non-[place] [address] Rudolph Royal APRN 10/31/2024 11:00 AM EST Office Visit Cardiology at [address] [address] Rudolph Royal, HEEL EMERY BUFFER documented as of this encounter Procedures Procedure [...] EST Narrative 10/01/2024 1:22 PM EST 1 [place] [address] ? Echocardiogram Report Name: KOREY BERMUDEZ ? Study Date: 10/01/2024 11:06 AMBP: 119/78 mmHg : 1950 ? Height: 168 cm ? Account: [id number] Age: 74 yrs ? Weight: 62 kg Gender: Male ?BSA: 1.7 m2 Ordering Physician: RUDOLPH ROYAL Referring Physician: RUDOLPH ROYAL Performed By: OMERO Baez Reason For Study: Chest pain Exam Location: [facility]. Interpretation Summary Left ventricular systolic function is [...] the findings are similar. Procedure Limited - [id number]. Image enhancement Optison was used for left [...] Note Pablo Tam MD - 10/01/2024 [address] [place] [id number] Echocardiogram Report Name: KOREY BERMUDEZ Study Date: 1:06 AMBP: 119/78 mmHg : 1950 Height: 168 cm Account: [id number] Age: 74 yrs Weight: 62 kg Gender: Male BSA: 1.7 m2 Ordering Physician: RUDOLPH ROYAL Referring Physician: RUDOLPH ROYAL Performed By: OMERO Baez Reason For Study: Chest pain Exam Location: [facility]. Interpretation Summary Left ventricular systolic function is [...] 07/30/2024, the findings aresimilar. Procedure Limited - [id number]. Image enhancement Optison was used for left [...] mLs documented in this encounter Care Teams Farm Rancher Relationship Specialty Start Date End Date Alexia Mtz APRN [address] [place] [address] PCP - General Family Medicine 07/30/24 documented as of this encounter
--- OUTSIDE RECORDS SUMMARY | 2024-10-15 10:00 | XMS_ITS | Encounter Summary ---
Author Organization [facility] Address [facility] [place] [address] Care Team Providers Care All Source Collection Manager Name Role Phone Alexia Mtz FREDRICK Primary Care Provider [phone] Encounter Details Date Type Department Care Team (Late st Contact Info) Description 10/02/2024 Notes Only Cardiology at [address] [address] Alok Eaton, RD [facility] [place] [address] Social History Tobacco Use Types Packs/Day Years Used Date Smoking Tobacco: Former Cigarettes Smokeless Tobacco: Never Alcohol Use Standard Drinks/Week Comments Not Currently 0 (1 standard drink = 0.6 oz pur e alcohol) [facility] Utilities Answer Date Recorded In the past 12 months has e [employer], gas, oil, or water [employer] threatened to shut off services in your [...] call-back number to schedule telehealth visit through senior data developer: [phone] Option #2. documented in this encounter Plan of Treatment Upcoming Encounters Date Type Department Care Team (Late st Contact Info) Description 10/31/2024 9:30 AM EST Appointment [place] [address] Mushtaq Murphy APRN 10/31/2024 11:00 AM EST Office Visit Cardiology at [address] [phone] Mushtaq Murphy APRN documented as of this encounter Visit Diagnoses Not on filedocumented in this encounter Care Teams All Source Collection Manager Relationship Specialty Start Date End Date Alexia Mtz APRN [address] [place] [address] PCP - General Family Medicine 07/30/24 documented as of this encounter
--- OUTSIDE RECORDS SUMMARY | 2024-10-15 10:00 | XMS_ITS | Encounter Summary ---
[place] [address] Care Team Providers Care Soa Engineer Name Role Phone Alexia Mtz FREDRICK Primary Care Provider [phone] Encounter Details Date Type Department Care Team (Latest Contact Info) Description 10/01/2024 1:55 PM EST Laboratory Appointment Lab [address] [phone] HFrEF (heart failure with reduced ejection fraction) Social History Tobacco Use Types Packs/Day Years Used Date Smoking Tobacco: Former Cigarettes Smokeless Tobacco: Never Alcohol Use Standard Drinks/Week Comments Not Currently 0 (1 standard drink = 0.6 oz pur e alcohol) [facility] Utilities Answer Date Recorded In the past 12 months has [employer], gas, oil, or water [employer] threatened to shut off services in your [...] 9:30 AM EST Appointment Non-[place] [address] Mushtaq Murphy, PLUMBING ASSEMBLER 10/31/2024 11:00 AM EST Office Visit Cardiology at [address] [address] Mushtaq Murphy, PLUMBING ASSEMBLER documented as of this encounter Procedures Procedure [...] 65 - 199 mg/dL 10/01/2024 1:18 PM [facility] Comment:Glucose Concentratio n >=200 mg/dL plus symptoms is consistent with Diabetes Mellitus. Blood Urea Nitrogen 17 10 - 20 mg/dL 10/01/2024 1:18 PM [facility] Creatinine 1.06 0.80 - 1.50 mg/dL 10/01/2024 1:18 PM [facility] Sodium 142 135 - 145 mMol/L 10/01/2024 1:18 PM [facility] Potassium 4.1 3.5 - 5.0 mMol/L 10/01/2024 1:18 PM [facility] Chloride 105 98 - 107 mMol/L 10/01/2024 1:18 PM [facility] Carbon Dioxide 25 22 - 31 mMol/L 10/01/2024 1:18 PM [facility] Anion Gap 12 5 - 15 mMol/L 10/01/2024 1:18 PM [facility] Calcium 9.5 8.5 - 10.5 mg/dL 10/01/2024 1:18 PM [facility] Protein, Total 7.2 6.1 - 8.0 g/dL 10/01/2024 1:18 PM [facility] Albumin 4.3 3.2 - 5.2 g/dL 10/01/2024 1:18 PM [facility] Aspartate Aminotransferase 18 <=39 unit/L 10/01/2024 1:18 PM [facility] Alanine Aminotransferase 18 0 - 55 unit/L 10/01/2024 1:18 PM [facility] Alkaline Phosphatase 94 40 - 130 unit/L 10/01/2024 1:18 PM [facility] Bilirubin, Total 0.4 <=1.3 mg/dL 10/01/2024 1:18 PM [facility] Est Glomerular Filtration Rate - Male 75 mL/min/1. 73 m?? 10/01/2024 1:18 PM EST [facility] Comment: [...] Fasting Status No 10/01/2024 1:18 PM EST [facility] Blood VENOUS BLOOD SPECIMEN / Unknown Venipuncture / Unknown 10/01/2024 12:33 PM EST 10/01/2024 12:38 PM EST Mushtaq Murphy PLUMBING ASSEMBLER CHEMISTRY ORDERABLE S [facility] [place] [address] * Magnesium (10/01/2024 12:33 PM EST) Magnesium 0.94 0.69 - 1.07 mMol/L 10/01/2024 1:18 PM EST [facility] Blood VENOUS BLOOD SPECIMEN / Unknown Venipuncture / Unknown 10/01/2024 12:33 PM EST 10/01/2024 12:38 PM EST Mushtaq Murphy PLUMBING ASSEMBLER CHEMISTRY ORDERABLE S [facility] [place] [address] * (ABNORMAL) pro-Brain Natriuretic Peptide (10/01/2024 12:33 PM EST) NT-proBNP 2,150(H) <=124 pg/mL 10/01/2024 1:18 PM EST [facility] Blood VENOUS BLOOD SPECIMEN / Unknown Venipuncture / Unknown 10/01/2024 12:33 PM EST 10/01/2024 12:38 PM EST Mushtaq Murphy PLUMBING ASSEMBLER CHEMISTRY ORDERABLE S [place] [id number] documented in this encounter Visit Diagnoses Diagnosis HFrEF (heart failure with reduced ejection fraction) documented in this encounter Care Teams Soa Engineer Relationship Specialty Start Date End Date Alexia Mtz APRN [address] [place] [address] PCP - General Family Medicine 07/30/24 documented as of this encounter
--- OUTSIDE RECORDS SUMMARY | 2024-10-15 10:00 | XMS_ITS | Encounter Summary ---
[place] [address] Care Team Providers Care Urology Teacher Name Role Phone Alexia Mtz FREDRICK Primary Care Provider [phone] Encounter Details Date Type Department Care Team (Late st Contact Info) Description 09/21/2024 External Results [place] [id number] Social History Tobacco Use Types Packs/Day Years [...] 9:30 AM EST Appointment [place] [address] Mushtaq Murphy APRN 10/31/2024 11:00 AM EST Office Visit Cardiology at [address] [address] Mushtaq Murphy APRN documented as of this encounter Procedures Procedure Name Priority Date/Time Associated Diagnosis Comments EEG SCAN Routine 07/29/2024 9:44 AM EST documented in this encounter Results * Scan Doc: EEG (07/29/2024 9:44 AM EST) Historical Provider MD CLANCY MGR SCAN EX T ORDR/RSLT documented in this encounter Visit Diagnoses Not on filedocumented in this encounter Care Teams Urology Teacher Relationship Specialty Start Date End Date Alexia Mtz APRN [address] [place] [id number] PCP - General Family Medicine 11/18/24 documented as of this encounter
--- OUTSIDE RECORDS SUMMARY | 2024-10-15 10:00 | XMS_ITS | Clinical Summary ---
Author Organization [facility] [place] [address] Care Team Providers Care Printing Film Stripper Name Role Phone Alexia Mtz FREDRICK Primary Care Provider [phone] Allergies No known active allergies Medications Medication [...] Team Description 10/02/2024 Notes Only Cardiology at [address] [phone] 10/02/2024 Telephone Cardiology at [address] [address] Tre Gibbons RN 10/01/2024 1:55 PM EST Laboratory Appointment Lab [address] [place] [address] HFrEF (heart failure with reduced ejection fraction) 10/01/2024 11:00 AM EST - 10/01/2024 11:59 PM EST Hospital Encounter Non-[place] [address] Mushtaq Royal APRN HFrEF (heart failure with reduced ejection fraction) Discharge Disposition: Home 10/01/2024 10:00 AM EST Office Visit Cardiology at [address] [address] Mushtaq Royal, FREDRICK HFrEF (heart failure with reduced ejection fraction); ST elevation myocardial infarction involving left anterior descending (LAD) coronary artery 10/01/2024 Telephone Cardiology at [address] [address] Chloe Ramos 10/01/2024 Travel 09/21/2024 External Results Non-Invasive [place] [address] 07/31/2024 4:30 PM EST - 07/31/2024 5:30 PM EST Surgery [place] [address] Maldonado Luis MD CARDIAC CATHETERIZATION 07/29/2024 6:32 PM EST - 07/29/2024 11:59 PM EST Hospital Encounter [facility] at [address] [address] Arvin Becerra MD Discharge Disposition: Home 07/29/2024 12:00 PM EST - 07/29/2024 12:54 PM EST Surgery [facility] [place] [phone] Vahe Marvin MD CARDIAC CATHETERIZATION 07/29/2024 11:45 AM EST - 08/04/2024 5:00 PM EST Hospital Encounter Cardiovascular [place] [phone] Vahe Marvin MD Dadekian, MD Keith Richter, MD Eh Galvez Poornima, MD Kostojchin, Anastas, MD Kussaga, Sanjiv Hoffmann MD ST elevation myocardial infarction involving left anterior descending (LAD) coronary artery; HFrEF (heart failure with reduced ejection fraction) Discharge Disposition: Home 07/29/2024 Orders Only [facility] [place] [phone] Susannah Watts PA 07/29/2024 Interpretation Only [address] [phone] Deondre Ferrera MD 07/29/2024 Notes Only Cardiology [place] [phone] Ivan Hernandez MD 07/29/2024 External Results Emergency Department [place] [phone] 07/28/2024 Interpretation Only [address] [phone] Quinten Coffey MD from Last 3 Months [...] 9:30 AM EST Appointment Non-Invasive [place] [address] Mushtaq Royal, HEALTH SAFETY MANAGER 10/31/2024 11:00 AM EST Office Visit Cardiology at [address] [phone] Mushtaq Royal, HEALTH SAFETY MANAGER Health Maintenance Due Date Last Done Comments [...] VIEW STAT 07/29/2024 10: 50 AM EST [facility] [place] Routine 07/29/2024 10:13 AM [...] EST 10/01/2024 12:38 PM EST Mushtaq Royal HEALTH SAFETY MANAGER CHEMISTRY ORDERABLE S Performing Organization Address City/[facility]/ZIP Co de Phone Number [facility] [place] [address] * Magnesium (10/01/2024 12:33 PM EST) Only the most recent of9 resultswithin the time period is included. Pathologist [facility] Magnesium 0.94 0.69 - 1.07 mMol/L 10/01/2024 1:18 PM EST [facility] Blood VENOUS BLOOD SPECIMEN / Unknown Venipuncture / Unknown 10/01/2024 12:33 PM EST 10/01/2024 12:38 PM EST Mushtaq Royal HEALTH SAFETY MANAGER CHEMISTRY ORDERABLE S [facility] [place] [address] * Comprehensive metabolic panel Non-fasting (10/01/2024 12:33 PM EST) Only the most recent of2 resultswithin the time period is included. Glucose 76 65 - 199 mg/dL 10/01/2024 1:18 PM [facility] Comment:Glucose Concentratio n >=200 mg/dL plus symptoms is consistent with Diabetes Mellitus. Blood Urea Nitrogen 17 10 - 20 mg/dL 10/01/2024 1:18 PM [facility] Creatinine 1.06 0.80 - 1.50 mg/dL 10/01/2024 1:18 PM [facility] Sodium 142 135 - 145 mMol/L 10/01/2024 1:18 PM [facility] Potassium 4.1 3.5 - 5.0 mMol/L 10/01/2024 1:18 PM [facility] Chloride 105 98 - 107 mMol/L 10/01/2024 1:18 PM [facility] Carbon Dioxide 25 22 - 31 mMol/L 10/01/2024 1:18 PM [facility] Anion Gap 12 5 - 15 mMol/L 10/01/2024 1:18 PM [facility] Calcium 9.5 8.5 - 10.5 mg/dL 10/01/2024 1:18 PM [facility] Protein, Total 7.2 6.1 - 8.0 g/dL 10/01/2024 1:18 PM [facility] Albumin 4.3 3.2 - 5.2 g/dL 10/01/2024 1:18 PM [facility] Aspartate Aminotransferase 18 <=39 unit/L 10/01/2024 1:18 PM [facility] Alanine Aminotransferase 18 0 - 55 unit/L 10/01/2024 1:18 PM [facility] Alkaline Phosphatase 94 40 - 130 unit/L 10/01/2024 1:18 PM [facility] Bilirubin, Total 0.4 <=1.3 mg/dL 10/01/2024 1:18 PM EST [facility] Est Glomerular [...] EST Mushtaq Royal APRN CHEMISTRY ORDERABLE S [facility] [place] [address] * ECHO LMTD W CONTRAST W LMTD SPEC DOPP COLOR DOPP (10/01/2024 12:15 PM EST) EF 33 HEARTLAB SYSTEM Anatomical Region Laterality Modality Cardiac Other 10/01/2024 11:0 6 AM EST Narrative 10/01/2024 1:22 PM EST [address] [place] [address] ? Echocardiogram Report Name: KOREY MONTOYA ? Study Date: 10/01/2024 11:06 AMBP: 119/78 mmHg : 1950 ? Height: 168 cm ? Account: [id number] Age: 74 yrs ? Weight: 62 kg Gender: Male ?BSA: 1.7 m2 Ordering Physician: MUSHTAQ ROYAL Referring Physician: MUSHTAQ ROYAL Performed By: OMERO Baez Reason For Study: Chest pain Exam Location: [facility]. Interpretation Summary Left ventricular [...] the findings are similar. Procedure Limited - 39389. Image enhancement Optison was used for left [...] Note Pablo Tam MD - 10/01/2024 [address] [place] [address] Echocardiogram Report Name: KOREY MONTOYA Study Date: 511:06 AMBP: 119/78 mmHg : 1950 Height: 168 cm Account: [id number] Age: 74 yrs Weight: 62 kg Gender: Male BSA: 1.7 m2 Ordering Physician: MUSHTAQ ROYAL Referring Physician: MUSHTAQ ROYAL Performed By: OMERO Baez Reason For Study: Chest pain Exam Location: [facility]. Interpretation Summary Left ventricular [...] 07/30/2024, the findings aresimilar. Procedure Limited - 95340. Image enhancement Optison was used for left [...] (Bezet) 428 ms MUSE SYSTEM Calculated P Sheridan 83 degrees MUSE SYSTEM Calculated R Sheridan 88 degrees MUSE SYSTEM Calculated T Sheridan 159 degrees MUSE SYSTEM INTERPRETATION Normal sinus rhythm Low voltage QRS 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) T wave abnormality, consider lateral ischemia ACUTE ID / STEMI Abnormal ECG When [...] 9.50 x10(3)/mc L 08/04/2024 6:39 AM EST [facility] Red Blood Cell 4.28(L) 4.58 [...] MD HEMATOLOGY ORDERABLE S Performing Organization Address City/State/[facility] Co de Phone Number [facility] [place] [address] * Basic Metabolic Panel (08/04/2024 6:08 AM [...] MD CHEMISTRY ORDERABLES [facility] [place] [address] * POC, GLUCOSE (08/02/2024 7:47 AM EST) [...] TEST O RDERABLES [facility] [place] [address] * Scan Doc: Telemetry Strips (08/02/2024 7:37 [...] EST Jay Silverio MD CHEMISTRY ORDERABL ES [facility] [place] [address] * (ABNORMAL) Cooximetry, POC (08/01/2024 10:45 AM EST) Only the most recent of2 resultswithin the time period is included. pO2, Coox 32 mmHg 08/01/2024 10:48 AM EST [facility] Hemoglobin, Coox 12.9(L) 13.7 - 16.5 g/dL 08/01/2024 10:48 AM EST [facility] Oxyhemoglobin, Coox 66.7 % 08/01/2024 10:48 AM EST [facility] Carboxyhemoglo bin, Coox 1.1 % 08/01/2024 10:48 AM EST [facility] Comment: Nonsmokers: 0.5-1.5% COHB ?? Smokers: Variable ??but usually less than 10% ?? Toxic: 20-30% COHB ?? Lethal: Greater than 60% COHB Methemoglobin, Coox 0.3 <=1.5 % 08/01/2024 10:48 AM EST [facility] Blood (Mixed Venous) 08/01/2024 10:45 AM EST 08/01/2024 10:48 AM EST Arnel Parker MD POINT OF CARE TEST O RDERABLES Performing Organization Address City/State/[facility] Co de Phone Number [facility] [place] [address] * CARDIAC CATHETERIZATION (07/31/2024 5:53 PM EST) Only the most recent of2 resultswithin the time period is included. Anatomical Region Laterality Modality Other Narrative 08/01/2024 12:37 PM EST ?[facility] ? Cardiac Catheter[facility]/Intervention Report ? Patient Name: Korey Montoya Kyrie. ? Procedure Date: 07/31/2024 ? A #: [id number] ? Primary Physician: Janelle, Maldonado T ? Case #: [id number] ? File Name: [id number] ? Catheterization Order Number: [id number] ? [facility] ? Final Report [place], [place] ? Patient Name: ? Korey P. Montoya ?ID#: ?[id number] ? : ?1950 ? Procedure Date: ? [...] Other, Aspirin and Angiotensin II Receptor ? Jaince. ? Technique: ?Radiation: Fluoro time was 0.5 [...] ? Comments: ?Impella removed from the right ELECTRICIAN DECK with deployment of Perclose and ?Angioseal. ??Good hemostasis. ?The attending physician was present for the entire procedure. ?Dr. Maldonado Luis M.D. was present during the moderate sedation ?intraservice time as documented by the sedation nurse. ??Case time = 00:35. ?Dr. Maldonado uLis M.D. performed the vascular closure device and ?ventricular assist device removal. ? Maldonado Luis M.D. ? Electronically Signed by: Maldonado Luis M.D. ? Report Finalized: 08/01/2024 ??12:31 ? Procedure Note Maldonado Luis MD - 08/01/2024 [facility] Cardiac C[facility]ter[facility]Intervention Report Patient Name: Korey MontoyaToby Procedure Date: 07/31/2024 A #: [id number] Primary Physician: Maldonado Luis Case #: [id number] File Name: [id number] Catheterization Order Number: [id number] [facility] FinalReport [place], [place] Patient Name: Korey Montoya ID#:[id number] :1950 Procedure Date: July 31, 2024 Case [...] was designated as ASA Class IV. The [facility] clinical frailtyscale is 4: Vulnerable. [...] procedures. Comments: Impella removed from the right ELECTRICIAN DECK with deployment of Perclose and Angioseal. Good [...] TEST O RDERABLES [facility] [place] [address] * (ABNORMAL) Hepatic Function Panel (07/31/2024 1:08 AM EST) Albumin 3.1(L) 3.2 - 5.2 g/dL 07/31/2024 1:46 AM [facility] Aspartate Aminotransferase 192(H) <=39 unit/L 07/31/2024 1:46 AM [facility] Alanine Aminotransferase 59(H) 0 - 55 unit/L 07/31/2024 1:46 AM [facility] Alkaline Phosphatase 46 40 - 130 unit/L 07/31/2024 1:46 AM EST [facility] Bilirubin, Total 0.4 <=1.3 mg/dL 07/31/2024 1:46 AM EST [facility] Bilirubin, Direct <0.2 0.0 - 0.3 mg/dL 07/31/2024 1:46 AM EST [facility] Protein, Total 5.0(L) 6.1 - 8.0 g/dL 07/31/2024 1:46 AM EST [facility] Blood VENOUS BLOOD SPECIMEN / Unknown Venipuncture / Unknown 07/31/2024 1:08 AM EST 07/31/2024 1:18 AM EST Arnel Parker MD CHEMISTRY ORDERABLES Performing Organization Address [facility]/ZIP Co de Phone Number [facility] [place] [address] * (ABNORMAL) Phosphorus (07/30/2024 3:08 PM EST) Only the most recent of3 resultswithin the time period is included. Phosphorus 2.1(L) 2.5 - 4.5 mg/dL 07/30/2024 3:58 PM EST [facility] Blood VENOUS BLOOD SPECIMEN / Unknown Venipuncture / Unknown 07/30/2024 3:08 PM EST 07/30/2024 3:12 PM EST Jay Silverio MD CHEMISTRY ORDERABL ES Performing Organization Address City/[facility]/ZIP Co de Phone Number [facility] [place] [address] * ECHO LMTD W CONTRAST W LMTD SPEC DOPP COLOR DOPP (07/30/2024 11:42 AM EST) Anatomical Region Laterality Modality Cardiac Other 07/30/2024 10:2 2 AM EST Narrative 07/30/2024 12:34 PM EST [address] [place] [address] ? Echocardiogram Report Name: KOREY MONTOYA ? Study Date: 07/30/2024 10:22 AMBP: 124/66 mmHg : 1950 ? Height: 168 cm ? Account: [id number] Age: 74 yrs ? Weight: 65 kg Gender: Male ?BSA: 1.7 m2 Ordering Physician: Jay Silverio MD Referring Physician: DEONDRE FERRERA Performed By: OMERO Millan Reason For Study: ST elevation myocardial infarction involving left anterior descending (LAD) coronary artery Interpreting Fellow: Ivan Hernandez. Exam Location: [facility]. Interpretation Summary Left ventricle [...] Compared to the overnight study by the concrete grinder operator fellow the impella position is stable. 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 Procedure Limited - 82313. Image enhancement Definity was used for both [...] Note Kathleen Banda MD - 07/30/2024 [address] [place] [address] Echocardiogram Report Name: KOREY MONTOYA Kyrie Study Date: 410:22 AMBP: 124/66 mmHg : 1950 Height: 168 cm Account: [id number] Age: 74 yrs Weight: 65 kg Gender: Male BSA: 1.7 m2 Ordering Physician: Jay Silverio MD Referring Physician: DEONDRE FERRERA Performed By: OMERO Millan Reason For Study: ST elevation myocardial infarction involving leftanterior descending (LAD) coronary artery Interpreting Fellow: Ivan Hernandez. Exam Location: [facility]. Interpretation Summary Left ventricle [...] Compared to the overnight study by the concrete grinder operator fellow the impella positionis stable. The global left ventricular systolic function has improvedpredominantly via recruitment outside the LAD territory which remains akinetic. Procedure Limited - 69701. Image enhancement Definity was used for both [...] troponin value can be found in the [facility] Laboratory Test Catalog Troponin - [email or web address]/[email or web address] Reference: Fourth Alfred Definition of Myocardial Infarction. Journal of the [place] [employer] 2018;72:1421-3469 Blood VENOUS BLOOD SPECIMEN / Unknown Venipuncture / Unknown 07/30/2024 8:09 AM EST 07/30/2024 8:26 AM EST Jay Silverio MD CHEMISTRY ORDERABL ES [facility] [place] [address] * Echocardiogram Transthoracic (07/30/2024 1:41 AM EST) Anatomical Region Laterality Modality Cardiac Other 07/30/2024 1:41 AM EST Narrative 07/30/2024 8:23 AM EST [address] [place] [address] ? Echocardiogram Report Name: KOREY MONTOYA ? Study Date: 07/30/2024 01:41 AM : 1950 ? Height: 168 cm Age: 74 yrs ? Weight: 5.9 kg Gender: Male ?BSA: 0.63 m2 Performed By: Beatris Ching MD Reason For Study: STEMI, VT History: ASCVD, HTN, HLD Interpreting Fellow: Beatris Ching. Interpretation Summary This is a limited study performed by a fellow concrete grinder operator to evaluate for cardiogenic shock with [...] study available for comparison. Procedure Limited - 50301. Suboptimal quality. There is sinus bradycardia. Left [...] Note Kathleen Banda MD - 07/30/2024 1 [place] [address] Echocardiogram Report Name: KOREY MONTOYA Study Date: 07/30/2024 01:41AM : 1950 Height: 168 cm Age: 74 yrs Weight: 5.9 kg Gender: Male BSA: 0.63 m2 Performed By: Beatris Ching MD Reason For Study: STEMI, VT History: ASCVD, HTN, HLD Interpreting Fellow: Beatris Ching. Interpretation Summary This is a limited study performed by a fellow concrete grinder operator to evaluate forcardiogenic shock with impella [...] study available for comparison. Procedure Limited - 87708. Suboptimal quality. There is sinus bradycardia. Left [...] POSITIVE 07/29/2024 10:13 PM EST [facility] Blood VENOUS BLOOD SPECIMEN / Unknown Venipuncture / Unknown 07/29/2024 6:43 PM EST 07/29/2024 7:15 PM EST Jay Silverio MD BLOOD BANK LAB ORD ERABLES [facility] [place] [id number] * Type and screen ([facility]JONG/MAGALIE) (07/29/2024 5:56 PM EST) ABORH Type AB POSITIVE 07/29/2024 9:44 PM EST [facility] PATIENT HISTORY Not Found 07/29/2024 9:44 PM EST [facility] Expires at 0611 on: 08/01/2024 07/29/2024 9:44 PM EST [facility] ANTIBODY SCREEN AUTOMATED Negative 07/29/2024 9:44 PM EST [facility] T&S only valid at [facility] 07/29/2024 9:44 PM EST [facility] Blood VENOUS BLOOD SPECIMEN / Unknown Venipuncture / Unknown 07/29/2024 5:56 PM EST 07/29/2024 6:07 PM EST Narrative [facility] - 07/29/2024 9:44 PM EST This Type and Screen result is only valid at the [facility] Jay Silverio MD BLOOD BANK LAB ORD ERABLES Performing Organization Address City/[facility]/ZIP Co de Phone Number [facility] [place] [address] * Blood culture (07/29/2024 4:08 PM EST) Only the most recent of2 resultswithin the time period is included. Blood Culture No growth at 120 hours 08/03/2024 5:01 PM EST [facility] Blood VENOUS BLOOD SPECIMEN / Unknown Venipuncture / Unknown 07/29/2024 4:08 PM EST 07/29/2024 4:15 PM EST Jay Silverio MD MICROBIOLOGY - BLO OD ORDERABLES Performing Organization Address [facility] Co de Phone Number [facility] [place] [address] * XR Chest One View (07/29/2024 2:30 PM EST) Only the most recent of3 resultswithin the time period is included. WORKSTATION ID [id number] [facility] Anatomical Region Laterality Modality Chest N/A [...] who have questions please contact the health children's zoo caretaker that requested your imaging first. ? [...] patients who have questions please contactthe health children's zoo caretaker that requested your imaging first. Vahe Marvin MD IMG DX ORDERABLES * TSH [place] (07/29/2024 2:03 PM EST) Thyroid Stimulating Hormone 0.70 0.27 - 4.20 mcIU/mL 07/29/2024 2:52 PM EST [facility] Blood VENOUS BLOOD SPECIMEN / Unknown Venipuncture / Unknown 07/29/2024 2:03 PM EST 07/29/2024 2:14 PM EST Vahe Marvin MD CHEMISTRY ORDERABLES Performing Organization Address [facility]/ZIP Co de Phone Number [facility] [place] [address] * CRP, acute inflammation (07/29/2024 2:03 PM EST) C-Reactive Protein <3.0 <=4.9 mg/L 07/29/2024 2:52 PM EST [facility] Blood VENOUS BLOOD SPECIMEN / Unknown Venipuncture / Unknown 07/29/2024 2:03 PM EST 07/29/2024 2:14 PM EST Vahe Marvin MD CHEMISTRY ORDERABLES Performing Organization Address [facility] Co de Phone Number [facility] [place] [address] * (ABNORMAL) APTT (07/29/2024 2:03 PM EST) Partial Thromboplastin Time >160(HHH) 25 - 37 sec 07/29/2024 2:56 PM EST [facility] Blood VENOUS BLOOD SPECIMEN / Unknown Venipuncture / Unknown 07/29/2024 2:03 PM EST 07/29/2024 2:13 PM EST Vahe Marvin MD HEMATOLOGY ORDERABLE S Performing Organization Address City/[facility]/ZIP Co de Phone Number [facility] [place] [address] * (ABNORMAL) Prothrombin Time (07/29/2024 2:03 PM [...] HEMATOLOGY ORDERABLE S [facility] [place] [address] * Hemoglobin A1c (07/29/2024 2:03 PM EST) [...] blood cell turnover may not be account maintenance representative of glycemic control. Reference Interval: 4.3 [...] EST 07/29/2024 2:14 PM EST [facility] - 07/29/2024 2:41 PM EST Estimated average glucose (eAG) is calculated from the equation described in: Quinten ALVES, Rikki Booth, [place] R, et al. ??Translating the A1C assay into estimated average glucose values. ??Diabetes Care 2008:31(8):9656-6735. Additional resources are available on the ADA website (diabetes.org). Vahe Marvin MD CHEMISTRY ORDERABLES [facility] [place] [address] * Lipid Panel (Reflex Direct LDL) (07/29/2024 2:03 PM EST) [facility] Cholesterol, Total 133 mg/dL 07/29/2024 2:52 PM [facility] Comment: Desirable: < 200 mg/dL Borderline High: 200 - 239 mg/dL High: > or = 240 mg/dL Triglyceride 45 mg/dL 07/29/2024 2:52 PM [facility] Comment: Normal: <150 mg/dL Borderline High: 150-199 mg/dL High: 200-499 mg/dL Very High: > or =500 mg/dL HDL Cholesterol 58 mg/dL 4 2:52 PM [facility] Comment:Males: [...] 07/29/2024 2:03 PM EST 07/29/2024 2:14 PM [facility] - 07/29/2024 2:52 PM EST It [...] artery disease) Vahe Marvin MD CHEMISTRY ORDERABLES [facility] [place] [address] * (ABNORMAL) Blood Gas, Venous POC (07/29/2024 [...] 0.3 <=1.5 % 07/29/2024 2:02 PM EST [facility] Sodium, Venous 137 135 - 145 mmol/L 07/29/2024 2:02 PM [facility] Potassium, Venous 3.6 3.5 - 5.0 mmol/L 07/29/2024 2:02 PM [facility] Chloride, Venous 103 98 - 107 mmol/L 07/29/2024 2:02 PM EST [facility] Glucose, Venous 229(H) 65 - [...] TEST O RDERABLES Performing Organization Address City/State/[facility] Co de Phone Number [facility] [place] [address] * (ABNORMAL) BLOOD GAS, POC (07/29/2024 12:46 [...] TEST O RDERABLES [facility] [place] [id number] * External Cardiology Result (07/29/2024 10:13 AM EST) Anatomical Region Laterality Modality Other Historical Provider EXTERNAL CARDIOLO GY RESULT * Scan Doc: EEG (07/29/2024 9:44 AM EST) Historical Provider MEDIA MGR SCAN EX T ORDR/RSLT * COLONOSCOPY (08/30/2023 10:57 AM EST) COLONOSCOPY [facility] End[facility] Procedure Date: 08/30/2023 10:57 AM ? Patient Name: Korey Montoya ? Date of : 1950 ? Age: 73 ? Order #: [id number] ? Instrument Name: [id number] ? Procedure: ? Colonoscopy Indications: ? Rectal [...] preparation was evaluated ? using the BBPS ([place] Bowel ? Preparation Scale) with scores of: [...] future ? procedures. ? - Follow-up with Yole Dangelo APRN ? Attending Participation: ? I personally performed the entire procedure. ? UmerToby Mcgovern Umer Froilan, 08/30/2023 11:29:25 AM Number of Addenda: 0 Note Initiated On: 08/30/2023 10:57 AM [employer]ATION 08/30/2023 10:5 7 AM EST Yoel Artis HEALTH SAFETY MANAGER GENERAL SURGICAL ORD ERABLES [employer]ATION from Last 3 Months or Most Recently Relevant to Health Maintenance Advance Directives * Attempt Cardiopulmonary Resuscitation - Inpatient (Latest Code Status on File) Date Activated Date Inactivated Comments 07/29/2024 2:01 PM 08/04/2024 7:34 PM Question Answer Comments Code Status decision made by: Patient Content of discussion: pre-arrest limitations Care Teams Printing Film Stripper Relationship Specialty Start Date End Date Alexia Mtz APRN [address] [place] [address] PCP - General Family Medicine 07/30/24
--- OUTSIDE RECORDS SUMMARY | 2024-10-15 10:01 | XMS_ITS | Encounter Summary ---
Author Organization [facility] Address [facility] [place] [address] Care Team Providers Care Car Porter Name Role Phone VarnamtownAlexia shell Shun ALCALA Primary Care Provider [phone] Reason for Referral * Consultation (Routine) - Closed Specialty Diagnoses / Procedures Referred By Conteleazar t Referred To Contact Cardiology Diagnoses HFrEF (heart failure with reduced ejection fraction) [facility] S/P D/C acute HFrEF Alex Small MD [facility] [place] [address] Mushtaq Murphy APRN [facility] [place] [address] Referral ID Status Reason Start Date Expiration Date V isits Requested Visits Authorized [id number] Closed Consult, Test & Treat 08/04/2024 08/04/2025 1 1 * Consultation (Routine) - Pending Review Specialty Diagnoses / Procedures Referred By Contac t Referred To Contact Cardiology Diagnoses ST elevation myocardial infarction involving left anterior descending (LAD) coronary artery Yrn Ward MD [facility] [place] [address] Cardiac Rehab, [facility] [address] [place] [address] Referral ID Status Reason Start Date Expiration Date Visits Requested Visits Authorized [id number] Pending Review Consult, Test & Treat 01/31/2025 36 36 Reason for Visit * Auth/Cert (Routine) Specialty Diagnoses / Procedures Referred By Contac t Referred To Contact Diagnoses STEMI (ST elevation myocardial infarction) STEMI Procedures ER IPI Vahe Marvin MD [facility] [address] [facility] Referral ID Status Reason Start Date Expiration Date Visits Re quested Visits Authorized [id number] 1 1 Encounter Details Date Type Department Care Team (Latest Contact Info) Description 07/29/2024 11:45 AM EST - 08/04/2024 5:00 PM EST Hospital [place] [id number] Vahe Marvin MD [facility] [address] Aubree Silverio MD [facility] [place] [address] Krystal Parker MD [facility] [place] [address] Bridgette Stauffer MD [facility] [place] [address] Yrn Ward MD [facility] [place] [address] Alex Small MD [facility] [address] ST elevation myocardial infarction involving left anterior [...] please contact your inpatient physician through the [facility] Pharmacy Resident . Issues afterhours and on weekends will [...] EKG. Patient transferred via air ambulance to [facility] on 07/29 for LHC and LOW to [...] EKG. Was transferred via air ambulance to [facility] for further management and LHC demonstrated 100% occlusion. No significant RCA, LMCA, or LCX disease. LOW placed in LAD with some residual distal disease meriting placement of overlapping distal stent. TTE showed apical akinesis and inferior hypokinesis with EF 20%. RHC showed elevated filling pressures. Impella placed and P-level 6 at time of transfer to [facility]. CI initially 1.97, improved to [...] the next year. Access was via right RN PRODUCTION and this sitewas clean, dry and intact [...] for Chest pain. Replaces: nitroGLYcerin 400 mcg/spray Waka, Non-Aerosol 0.4 mg Quantity: 90 tablet Refills: [...] Refills: 0 STOPPED Medications nitroGLYcerin 400 mcg/spray Waka, Non-Aerosol Commonly known as: NITROLINGUAL Replaced by: [...] of one year. After this time, your stain sprayer will determine if you need to continue [...] away. Stay on the phone. The emergency nut sheller machine operator will tell you what to [...] appointments: During 8am-5pm Tuesday through Tuesday call [phone] to speak with a nurse in the cardiology clinic All other times call [phone] and ask to speak to the warehouse shipping associate content curator. Follow up Appointments: PCP Alexia Mtz, WOMEN'S BASKETBALL COACH [phone]. Please call to establish a follow up appointment within 1-2 weeks of discharge. Cardiology. Referral to heart failure has been sent. General Instructions None Future Appointments and Orders Future Orders Complete By Expires Referral to Cardiac Rehab [[id number] Custom] As directed Process Instructions: If no [...] of one year. After this time, your stain sprayer will determine if you need to continue [...] away. Stay on the phone. The emergency nut sheller machine operator will tell you what to [...] appointments: During 8am-5pm Tuesday through Tuesday call [phone] to speak with a nurse in the cardiology clinic All other times call [phone] and ask to speak to the warehouse shipping associate content curator. Follow up Appointments: PCP Alexia Mtz, WOMEN'S BASKETBALL COACH [phone]. Please call to establish a follow up [...] EKG. Patient transferred via air ambulance to [facility] on 07[place] for LHC and LOW to LAD for 100% occlusion Social History: Pt lives with his in a 1 level home with 2 NAOMI. 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 He [...] Total time: 35 (tef) minutes Time IN/OUT: 2706-2141 ZAIDA DUBOSE, PT Pager: [phone] Physical Therapy Inpatient Rehabilitation Department * Yrn Ward MD - 08/03/2024 10:38 AM EST CV HOSPITALIST 2 - [facility] DAILY PROGRESS NOTE Page [phone] to reach a provider 04/04 Admit Date: [...] to the overnight study by the content curator fellow the impella position is stable. 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 [facility] 07/29/24 Conclusions: * One vessel coronary artery disease (LAD) * Mild pulmonary hypertension * Elevated pulmonary capillary wedge pressure * Successful stent insertion of the proximal LAD lesion * See Dual Antiplatelet (DAPT) Recommendations above * Successful impella placement for cardiogenic shock. Telemetry: I have personally reviewed and interpreted the telemetry from the last 24 hours. [facility] Assessment: ASSESSMENT: Korey Montoya is a 74 y.o. male w/ PMH of hypertension, HLD, and BPH who presents for chief concern of chest pain after being found to have ST elevations on EKG. Patient transferred via air ambulance to [facility] on 07/29 for LHC and LOW to [...] to be determined OT: PCP Alexia Mtz, WOMEN'S BASKETBALL COACH [phone] * Zaida Dubose, PT - 08/02/2024 2:08 PM EST Physical Therapy Evaluation Patient profile: Korey Montoya is a 74 y.o. male w/ PMH of hypertension, HLD, and BPH who presents for chief concern of chest pain after being found to have ST elevations on EKG. Patient transferred via air ambulance to [facility] on 07/29 for LHC and LOW to LAD for 100% occlusion Social History: Pt lives with his in a 1 level home with 2 NAOMI. 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 He [...] Total time: 37 (eval) minutes Time IN/OUT: [id number] ZAIDA DUBOSE PT Pager: [phone] Physical Therapy Inpatient Rehabilitation Department * Gagan [...] EKG. Patient transferred via air ambulance to [facility] on 07/29 for LHC and LOW to LAD for 100% occlusion. TTE showed apical akinesis and inferior hypokinesis with EF 20%. RHC showed elevated filling pressures. Impella placed and P-level 6 at time of transfer to [facility]. CI initially 1.97, improved to 2.2 After impella. Received about 3 L of fluid during procedural course. Patient initially required norepinephrine 30, epinephrine 10, and vasopressin 0.04 for hemodynamic support, which was weaned upon arrival to [facility] to norepinephrine 20and levo 0.04 [...] PCP: Alexia Mtz APRN PCP phone number: [phone] Date of Admission: 07/29/2024 ( Hospital Day 4 days ) Attending:Bridgette Stauffer MD ID: Korey Montoya is a 74 y.o. male w/ PMH of hypertension, HLD, and BPH on Hospital Day4 for chief concern of chest pain after being found to have ST elevations on EKG. Patient transferred via air ambulance to [facility] on 07/29 for LHC and LOW to [...] 07/29/24 1621 PHART 7.48* 7.44 7.38 7.37 YVY2MTI 29* 29* 34* 36 PO2ART 71* 109* 141* 71* MQR0YTI 20.6 19.4* 19.5* 20.4 VBG (Venous Blood Gas) Recent Labs 07/29/24 1401 PHVEN 7.30* PO2VEN 39 MSI8LWH 20.1* Mixed Venous Sat No results for input(s): Y0SCHJ1 in the last 168 hours. Objective: Vitals [...] 07/29/24 1621 PHART 7.48* 7.44 7.38 7.37 FCL4QSN 29* 29* 34* 36 PO2ART 71* 109* 141* 71* ZUJ7BXK 20.6 19.4* 19.5* 20.4 VBG (Venous Blood Gas) Recent Labs 07/29/24 1401 PHVEN 7.30* PO2VEN 39 BBQ5VKN 20.1* Mixed Venous Sat No results for input(s): Q3UTOU7 in the last 168 hours. Microbiology: Microbiology Results (Last 30 days) Procedure Component Value Units Date/Time Blood culture [[id number]] Collected: 07/29/241607 Lab Status: Preliminary result Specimen: Blood, Venous Updated: 08/01/241700 Blood Culture No growth at 72 hours Blood culture [[id number]] Collected: 07/29/241607 Lab Status: Preliminary result Specimen: Blood, Venous Updated: 08/01/241700 Blood Culture No growth at 72 hours Imaging: Results for orders placed or performed during the hospital encounter of 07/29/24 XR Chest One View (Exam End: 07/29/2024 2:30 PM) Result Value WORKSTATION ID [id number] Impression 1. No pulmonary edema. 2. No pleural effusion. 3. No pneumothorax. Thank you for letting us participate in the care of this patient. If you are a health care provider and have any questions regarding this report, please contact the number below. For patients who have questions please contact the health wound care center consultant that requested your imaging first. ( 07/30/24) [...] to the overnight study by the content curator fellow the impella position is stable. The [...] EKG. Patient transferred via air ambulance to [facility] on 07/29 for LHC and LOW to [...] today). Transfer to floor. Krystal Parker MD, [facility], [facility] Staff Show Card Writer central supply aide * Gagan Catherine MD - 08/01/2024 11:12 [...] EKG. Patient transferred via air ambulance to [facility] on 07/29 for LHC and LOW to [...] PCP: Alexia Mtz APRN PCP phone number: [phone] Date of Admission: 07/29/2024 ( Hospital Day 3 days ) Attending:Krystal Parker MD ID: Korey Montoya is a 74 y.o. male w/ PMH of hypertension, HLD, and BPH on Hospital Day3 for chief concern of chest pain after being found to have ST elevations on EKG. Patient transferred via air ambulance to [facility] on 07/29 for LHC and LOW to [...] 07/29/24 1621 PHART 7.48* 7.44 7.38 7.37 BEH7GIL 29* 29* 34* 36 PO2ART 71* 109* 141* 71* ZRD7XUN 20.6 19.4* 19.5* 20.4 VBG (Venous Blood Gas) Recent Labs 07/29/24 1401 PHVEN 7.30* PO2VEN 39 OSD8GLO 20.1* Mixed Venous Sat No results for input(s): A2OPHM6 in the last 168 hours. PA Catheter [...] 07/29/24 1621 PHART 7.48* 7.44 7.38 7.37 RQA6MYQ 29* 29* 34* 36 PO2ART 71* 109* 141* 71* WAM8QGT 20.6 19.4* 19.5* 20.4 VBG (Venous Blood Gas) Recent Labs 07/29/24 1401 PHVEN 7.30* PO2VEN 39 MMR9MYJ 20.1* Mixed Venous Sat No results for input(s): H5HPOZ5 in the last 168 hours. Microbiology: Microbiology Results (Last 30 days) Procedure Component Value Units Date/Time Blood culture [[id number]] Collected: 07/29/241607 Lab Status: Preliminary result Specimen: Blood, Venous Updated: 07/31/24 170 Blood Culture No growth at 48 hours Blood culture [[id number]] Collected: 07/29/241607 Lab Status: Preliminary result Specimen: Blood, Venous Updated: 07/31/24 170 Blood Culture No growth at 48 hours Imaging: Results for orders placed or performed during the hospital encounter of 07/29/24 XR Chest One View (Exam End: 07/29/2024 2:30 PM) Result Value WORKSTATION ID [id number] Impression 1. No pulmonary edema. 2. No pleural effusion. 3. No pneumothorax. Thank you for letting us participate in the care of this patient. If you are a health care provider and have any questions regarding this report, please contact the number below. For patients who have questions please contact the health wound care center consultant that requested your imaging first. ( 07/30/24) [...] to the overnight study by the content curator fellow the impella position is stable. The [...] EKG. Patient transferred via air ambulance to [facility] on 07/29 for LHC and LOW to [...] Susannah Ornelas MD Internal Medicine, PGY-1 Cardiology, [facility] 08/01/24 7:13 AM CARDIOLOGY STAFF NOTE [...] him; questions answered. Krystal Parker MD, FAC, [facility] Staff Show Card Writer central supply aide * Krystal Parker MD - 07/31/2024 1:06 [...] ILL WITH THESE DIAGNOSES BEING MANAGED BY [facility] TEAM: # Anterior STEMI, late-presenting # [...] EKG. Patient transferred via air ambulance to [facility] on 07/29 for LHC and LOW to LAD for 100% occlusion. TTE showed apical akinesis and inferior hypokinesis with EF 20%. RHC showed elevated filling pressures. Impella placed and P-level 6 at time of transfer to [facility]. CI initially 1.97, improved to 2.2 After impella. Received about 3 L of fluid during procedural course. Patient initially required norepinephrine 30, epinephrine 10, and vasopressin 0.04 for hemodynamic support, which was weaned upon arrival to [facility] to norepinephrine 20and levo 0.04 [...] PCP: Alexia Mtz APRN PCP phone number: [phone] Date of Admission: 07/29/2024 ( Hospital Day 2 days ) Attending:Krystal Parker MD ID: Korey Montoya is a 74 y.o. male w/ PMH of hypertension, HLD, and BPH on Hospital Day2 for chief concern of chest pain after being found to have ST elevations on EKG. Patient transferred via air ambulance to [facility] on 07/29 for LHC and LOW to [...] 0057 07/29/24 1621 PHART 7.44 7.38 7.37 IFN6SGJ 29* 34* 36 PO2ART 109* 141* 71* YVI0JPW 19.4* 19.5* 20.4 VBG (Venous Blood Gas) Recent Labs 07/29/24 1401 PHVEN 7.30* PO2VEN 39 AZA0HTA 20.1* Mixed Venous Sat No results for input(s): F1BTUR8 in the last 168 hours. PA Catheter [...] 0057 07/29/24 1621 PHART 7.44 7.38 7.37 LLE9EUV 29* 34* 36 PO2ART 109* 141* 71* XHJ5RCG 19.4* 19.5* 20.4 VBG (Venous Blood Gas) Recent Labs 07/29/24 1401 PHVEN 7.30* PO2VEN 39 SMW0MXC 20.1* Mixed Venous Sat No results for input(s): T9DVZF1 in the last 168 hours. Microbiology: Microbiology Results (Last 30 days) Procedure Component Value Units Date/Time Blood culture [[id number]] Collected: 07/29/241607 Lab Status: Preliminary result Specimen: Blood, Venous Updated: 07/30/241700 Blood Culture No Growth at 18-24 hrs. Blood culture [[id number]] Collected: 07/29/241607 Lab Status: Preliminary result Specimen: Blood, Venous Updated: 07/30/241700 Blood Culture No Growth at 18-24 hrs. Imaging: Results for orders placed or performed during the hospital encounter of 07/29/24 XR Chest One View (Exam End: 07/29/2024 2:30 PM) Result Value WORKSTATION ID [id number] Impression 1. No pulmonary edema. 2. No pleural effusion. 3. No pneumothorax. Thank you for letting us participate in the care of this patient. If you are a health care provider and have any questions regarding this report, please contact the number below. For patients who have questions please contact the health wound care center consultant that requested your imaging first. ( 07/30/24) [...] to the overnight study by the content curator fellow the impella position is stable. The [...] EKG. Patient transferred via air ambulance to [facility] on 07/29 for LHC and LOW to [...] work to optimize volume status while continuing ixbxnpd-wtsclh-wafzxivibl therapies at this time. Obtain comprehensive TTE. [...] EKG. Patient transferred via air ambulance to [facility] on 07/29 for LHC and LOW to LAD for 100% occlusion. TTE showed apical akinesis and inferior hypokinesis with EF 20%. RHC showed elevated filling pressures. Impella placed and P-level 6 at time of transfer to [facility]. CI initially 1.97, improved to 2.2 After impella. Received about 3 L of fluid during procedural course. Patient initially required norepinephrine 30, epinephrine 10, and vasopressin 0.04 for hemodynamic support, which was weaned upon arrival to [facility] to norepinephrine 20and levo 0.04 [...] PCP: Yoel Artis APRN PCP phone number: [phone] Date of Admission: 07/29/2024 ( Hospital Day 1 day ) Attending:Aubree Silverio MD ID: Korey Montoya is a 74 y.o. male w/ PMH of hypertension, HLD, and BPH on Hospital Day1 for chief concern of chest pain after being found to have ST elevations on EKG. Patient transferred via air ambulance to [facility] on 07/29 for LHC and LOW to [...] 0057 07/29/24 1621 PHART 7.44 7.38 7.37 IRC9FVU 29* 34* 36 PO2ART 109* 141* 71* PYD9DTQ 19.4* 19.5* 20.4 VBG (Venous Blood Gas) Recent Labs 07/29/24 1401 PHVEN 7.30* PO2VEN 39 QKG3LJR 20.1* Lactate ( Last 12 hours) 1.3 >> 1.2 Mixed Venous Sat No results for input(s): I0JGDF4 in the last 168 hours. PA Catheter [...] 0057 07/29/24 1621 PHART 7.44 7.38 7.37 IMW1BZS 29* 34* 36 PO2ART 109* 141* 71* KVX8JAM 19.4* 19.5* 20.4 VBG (Venous Blood Gas) Recent Labs 07/29/24 1401 PHVEN 7.30* PO2VEN 39 MTC0QLB 20.1* Mixed Venous Sat No results for input(s): W3BMDS1 in the last 168 hours. Microbiology: Microbiology Results (Last 30 days) Procedure Component Value Units Date/Time Blood culture [[id number]] Collected: 07/29/24 160 Lab Status: In process Specimen: Blood, Venous Updated: 07/29/24 162 Blood culture [[id number]] Collected: 07/29/241607 Lab Status: In process Specimen: Blood, Venous Updated: 07/29/24 161 Imaging: Results for orders placed or performed during the hospital encounter of 07/29/24 XR Chest One View (Exam End: 07/29/2024 2:30 PM) Result Value WORKSTATION ID [id number] Impression 1. No pulmonary edema. 2. No pleural effusion. 3. No pneumothorax. Thank you for letting us participate in the care of this patient. If you are a health care provider and have any questions regarding this report, please contact the number below. For patients who have questions please contact the health wound care center consultant that requested your imaging first. Medications [...] EKG. Patient transferred via air ambulance to [facility] on 07/29 for LHC and LOW to [...] Susannah Ornelas MD Internal Medicine, PGY-1 Cardiology, [facility] 07/30/24 10:41 AM documented in this [...] EKG. Patient transferred via air ambulance to [facility] on 07/29 for LHC and LOW to [...] EKG. Was transferred via air ambulance to [facility] for further management and [facility] demo nstrated 100% occlusion. No significant [...] 4.57) performed by Brandan Mcgovern MD [facility] ENDOSCOPY Significant Family History: Family History Problem [...] mouth. Past Week nitroGLYcerin (NITROLINGUAL) 400 mcg/spray Waka, Non-Aerosol 1 spray to anus for proctalgia [...] 3.5 guiding catheter and a 3.5 Fr [place] [facility] [place] [facility] 20 Mhz using Manual pullback. Imaging [...] A premounted 3.00 x 22 mm [place]ison [place] (LOW) was deployed with a maximum inflation [...] A premounted 3.00 x 08 mm Jeison [place] (LOW) was deployed with a maximum inflation [...] limited study performed by a fellow content curator to evaluate for cardiogenic shock with impella [...] to the overnight study by the content curator fellow the impella position is stable. The [...] EKG. Patient transferred via air ambulance to [facility] on 07/29 for LHC and LOW to [...] PCP: Yoel Artis APRN PCP phone number: [phone] Date of Admission: 07/29/2024 ( Hospital Day 0 days ) Attending:Aubree Silverio MD ID: Korey Montoya is a 74 y.o. male w/ PMH of hypertension, HLD, and BPH who presents for chief concern of chest pain after being found to have ST elevations on EKG. Patient transferred via air ambulance to [facility] on 07/29 for LHC and LOW to LAD for 100% occlusion. HPI: Korey Montoya is a 74 y.o. male w/ PMH of hypertension, HLD, and BPH who presents for chief concern of chest pain after being found to have ST elevations on EKG. Patient transferred via air ambulance to [facility] on 07/29 for LHC and LOW to [...] EKG. Was transferred via air ambulance to [facility] for further management and LHC demonstrated 100% occlusion. No significant RCA, LMCA, or LCX disease. LOW placed in LAD with some residual distal disease meriting placement of overlapping distal stent. TTE showed apical akinesis and inferior hypokinesis with EF 20%. RHC showed elevated filling pressures. Impella placed and P-level 6 at time of transfer to [facility]. CI initially 1.97, improved to [...] 4.57) performed by Brandan Mcgovern MD [facility] ENDOSCOPY Family History Family History Problem Relation [...] Blood Gas) No results for input(s): PHART, QLG8CZV, PO2ART, JMV4UTE, LACTATEVEN, KCS2XWK, PFRATIOART2 in the last 168 hours. VBG (Venous Blood Gas) Recent Labs 07/29/24 1401 PHVEN 7.30* PO2VEN 39 IAK5IUA 20.1* Mixed Venous Sat No results for input(s): V3PIPN6 in the last 168 hours. PA Catheter [...] Blood Gas) No results for input(s): PHART, SMH7EGU, PO2ART, UVS1ALO, LACTATEVEN, REF3RHB, PFRATIOART2 in the last 168 hours. VBG (Venous Blood Gas) Recent Labs 07/29/24 1401 PHVEN 7.30* PO2VEN 39 CMO8CCN 20.1* Mixed Venous Sat No results for input(s): L6XUWI3 in the last 168 hours. Microbiology: Microbiology [...] EKG. Patient transferred via air ambulance to [facility] on 07/[address] [facility]. Found to have 100% occlusion of LAD for which he underwent LOW to LAD.Otherwise no other significant vessel disease. Fahad is currently hemodynamically tenuous but improving upon admission to [facility], requiring hemodynamic support with norepinephrine and vasopressin at time of admission along with mechanical support with Impella device. Reassuringly, he demonstrates decreasing pressor requirements since admission to [facility], with epinephrine completely weaned. He [...] Bernardo Amos MD Internal Medicine, PGY-3 Cardiology, [facility] 07/29/24 3:14 PM Cardiology Attending [...] MD, FACP, FACC Section of Cardiovascular Medicine [facility] Vp Legal Affairsvp legal affairs [facility] [...] to the planned procedure. Hand Hygiene: The pullman conductor did perform hand hygiene prior to arterial [...] ease. Good wave form. Ivan Hernandez MD Cash Applications Specialist Associated attestation - Rolando Yeh MD [...] of Discharge: 08/04/2024 Gaby Wong RN, CM [phone] * Initial Assessments - Char Meza OT - 08/03/2024 10:00 AM EST Occupational Therapy Evaluation Patient profile: Korey Montoya is a 74 y.o. male admitted on 07/29/2024 w/ PMH of hypertension, HLD, and BPH who presents for chief concern of chest pain after being found to have ST elevations onEKG. Patient transferred via air ambulance to [facility] on 07/[facility] for LHC and LOW to LAD for 100% occlusion. Past Medical History: Diagnosis Date ADHD HLD (hyperlipidemia) HTN (hypertension) Tremor Past Surgical History: Procedure Laterality Date HAND SURGERY PRO COLONOSCOPY, REMV LESN, SNARE N/A 08/30/2023 COLONOSCOPY, POLYPECTOMY, REMOVAL LESION BY SNARE (WRVU 4.57) performed by Brandan Mcgovern MD [facility] ENDOSCOPY Social History: Patient lives with his [...] evaluation only Total Minutes, Occupational Therapy: 14 ([id number] (evaluation)) 2017 OT Evaluation Code Rationale: Diagnosis [...] and measurable assessment of functional outcome. Pager: [phone] Char Meza OT 08/03/2024 Occupational Therapy Rehabilitation [...] (Interventions Implemented as Appropriate) Flowsheets (Taken 08/01/2024 1042) Outcome Summary: A+O, no pain. NSR. MAP [...] Procedure Note: Patient Name: Korey Montoya : [id number] MR#: [id number] Case Date: 07/31/2024 Pharmacy Resident: Surgeons and Role: * Maldonado Luis MD - Primary * Quinten Charles PA - Physician Biophysics Scientist Preoperative diagnosis: shock, impella Postoperative diagnosis: * same * Procedure(s) performed: Impella removal form right RN PRODUCTION Access: Right RN PRODUCTION A time-out was conducted prior to the [...] surrogate would be surrogate decision maker per [place] surrogate decision making law. (Only good for 180 days) Any patient receiving care in [place] must abide by [place] law. The hierarchy for surrogate decision making [...] (i) The agent with financial power of privacy attorney or a conservator appointed in accordance [...] or living in a care home (including now)?: No In the past 12 months has the [employer], [employer], or water [employer] threatened to shut off services in your [...] Mailing Address: [address] [place] [address] Physical Address: [address] [place], [place] Social & Family Supports: All names [...] points: Addiction likely Health/Prescription Coverage: Primary Insurance: [facility] [employer] MEDICARE Payor: [facility] MEDICARE / Plan: AARP RPPO MANAGED MEDICARE COMPLETE / Product Type: *No Product type* / Secondary Insurance: N/A ; Prescription Coverage: Yes Preferred Pharmacy: [address] [address] [place] Status: Patient is a : No Primary Care Provider confirmed: Alexia Mtz, WOMEN'S BASKETB[employer] COACH [phone] Patient/Caregiver Goals of Treatment: return home Potential [...] of Hospital-Acquired Illness or Injury 07/30/2024529 by hCase Castro RN Outcome: Ongoing (Interventions Implemented as [...] 07/29/2024 6:25 PM EST 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 CXR and EKG completed. [...] Procedure Note: Patient Name: Korey Montoya : [id number] MR#: [id number] Case Date: 07/29/2024 Pharmacy Resident: Surgeons and Role: * Vahe Marvin MD - Primary * Susannah Watts PA - Physician Biophysics Scientist Preoperative diagnosis: STEMI Postoperative diagnosis: * STEMI, LAD Artery * * Cardiogenic Shock * Procedure(s) performed: [facility] Coronary angiogram Stent insertion coronary IVUS coronary Venous line insert RH [place] Colette Catheter Vascular closure device Ventricular assist [...] x 22 mm to 14 deonna JEISON [place] with LIZ 3 flow. Residual distal disease at distal stent, overlapping distal stent was inserted with 3.0 x 8 mm JEISON [place]. Systolic's in the 80's sustained. Patient re [...] AM EST Appointment Non-[place] [address] Mushtaq Murphy APRN 10/31/2024 11:00 AM EST Office Visit Cardiology at [address] [address] Mushtaq Murphy, FREDRICK Scheduled Orders [...] - 0.04 x10(3)/mc L 08/04/2024 6:[address] [facility] Blood VENOUS BLOOD SPECIMEN / Unknown Venipuncture / Unknown 08/04/2024 6:08 AM EST 08/04/2024 6:19 AM EST Bridgette Stauffer MD HEMATOLOGY ORDERABLE S [facility] [place] [address] * Magnesium (08/04/2024 6:08 AM EST) Pathologist [facility] Magnesium 0.85 0.69 - 1.07 mMol/L 08/04/2024 7:[address] [facility] Blood VENOUS BLOOD SPECIMEN / Unknown Venipuncture / Unknown 08/04/2024 6:08 AM EST 08/04/2024 6:19 AM EST Bridgette Stauffer MD CHEMISTRY ORDERABLES [facility] [place] [address] * Basic Metabolic Panel (08/04/2024 6:08 AM [...] 22 - 31 mMol/L 08/04/2024 7:[address] [facility] Anion Gap 8 5 - 15 mMol/L 08/04/2024 7:[address] [facility] Calcium 8.5 8.5 - 10.5 mg/dL 08/04/2024 7:[address] [facility] Est Glomerular Filtration Rate - Male 74 mL/min/1. 73 m?? 08/04/2024 7:[address] [facility] Comment: [...] MD CHEMISTRY ORDERABLES [facility] [place] [id number] * (ABNORMAL) CBC (with Diff) (08/03/2024 5:16 AM EST) White Blood Cell 7.85 4.00 - 9.50 x10(3)/mc L 08/03/2024 5:[address] [facility] Red Blood Cell 4.43(L) 4.58 - 5.54 x10(6)/mc L 08/03/2024 5:[address] [facility] Hemoglobin 11.8(L) 13.7 - 16.5 g/dL 08/03/2024 5:[address] [facility] Hematocrit 35.9(L) 40.5 - 48.5 [...] HEMATOLOGY ORDERABLE S [facility] [place] [address] * Magnesium (08/03/2024 5:16 AM EST) Pathologist [facility] Magnesium 0.89 0.69 - 1.07 mMol/L 08/03/2024 5:[address] [facility] Blood VENOUS BLOOD SPECIMEN / Unknown Venipuncture / Unknown 08/03/2024 5:16 AM EST 08/03/2024 5:23 AM EST Bridgette Stauffer MD CHEMISTRY ORDERABLES [facility] [place] [address] * (ABNORMAL) Basic Metabolic Panel (08/03/2024 5:16 AM EST) Pathologist [facility] Glucose 98 65 - 199 [...] Stauffer MD CHEMISTRY ORDERABLES Performing Organization Address [facility]/ZIP Co de Phone Number [facility] [place] [address] * POC, GLUCOSE (08/02/2024 7:47 AM EST) Glucometer, POC 89 65 - 199 mg/dL 08/02/2024 7:47 AM EST [facility] Comment:Supplemental ranges: <140 mg/dL before meals <180 mg/dL all other times of the day. Blood CAPILLARY BLOOD / Unknown 08/02/2024 7:47 AM EST 08/02/2024 7:47 AM EST Krystal Parker MD POINT OF CARE TEST O RDERABLES [facility] [place] [address] * (ABNORMAL) CBC (with Diff) (08/02/2024 4:20 [...] - 0.40 x10(3)/mc L 08/02/2024 4:[address] [facility] Basophil % 0.4 % 08/02/2024 [...] HEMATOLOGY ORDERABLE S [facility] [place] [address] * Magnesium (08/02/2024 4:20 AM EST) Magnesium 0.79 0.69 - 1.07 mMol/L 08/02/2024 5:[address] [facility] Blood VENOUS BLOOD SPECIMEN / Unknown Venipuncture / Unknown 08/02/2024 4:20 AM EST 08/02/2024 4:37 AM EST Bridgette Stauffer MD CHEMISTRY ORDERABLES [facility] [place] [address] * (ABNORMAL) Basic Metabolic Panel (08/02/2024 4:20 [...] Stauffer MD CHEMISTRY ORDERABLES Performing Organization Address [facility]/ZIP Co de Phone Number [facility] [place] [address] * Potassium (08/01/2024 8:39 PM EST) [facility] Potassium 4.0 3.5 - 5.0 mMol/L 08/01/2024 9:21 PM EST [facility] Blood VENOUS BLOOD SPECIMEN / Unknown Venipuncture / Unknown 08/01/2024 8:39 PM EST 08/01/2024 8:51 PM EST Aubree Silverio MD CHEMISTRY ORDERABL ES Performing Organization Address [facility] Co de Phone Number [facility] [place] [address] * POC, GLUCOSE (08/01/2024 8:35 PM EST) Glucometer, POC 112 65 - 199 mg/dL 08/01/2024 8:36 PM EST [facility] Comment:Supplemental ranges: <140 mg/dL before meals <180 mg/dL all other times of the day. Blood CAPILLARY BLOOD / Unknown 08/01/2024 8:35 PM EST 08/01/2024 8:36 PM EST Krystal Parker MD POINT OF CARE TEST O RDERABLES Performing Organization Address [facility] Co de Phone Number [facility] [place] [address] * POC, GLUCOSE (08/01/2024 4:55 PM EST) Glucometer, POC 99 65 - 199 mg/dL 08/01/2024 4:56 PM EST [facility] Comment:Supplemental ranges: <140 mg/dL before meals <180 mg/dL all other times of the day. Blood CAPILLARY BLOOD / Unknown 08/01/2024 4:55 PM EST 08/01/2024 4:56 PM EST Krystal Parker MD POINT OF CARE TEST O JOSH Performing Organization Address City/[facility] Co de Phone Number [facility] [place] [address] * POC, GLUCOSE (08/01/2024 12:42 PM EST) Glucometer, POC 130 65 - 199 mg/dL 08/01/2024 12:43 PM EST [facility] Comment:Supplemental ranges: <140 mg/dL before meals <180 mg/dL all other times of the day. Blood CAPILLARY BLOOD / Unknown 08/01/2024 12:42 PM EST 08/01/2024 12:43 PM EST Krystal Parker MD POINT OF CARE TEST O JOSH Performing Organization Address [facility] Co de Phone Number [facility] [place] [address] * (ABNORMAL) Cooximetry, POC (08/01/2024 10:45 AM [...] CARE TEST O JOSH Performing Organization Address [facility] Co de Phone Number [facility] [place] [address] * Potassium (08/01/2024 8:20 AM EST) Pathologist [facility] Potassium 4.0 3.5 - 5.0 mMol/L 08/01/2024 10:17 AM EST [facility] Blood ARTERIAL BLOOD / Unknown Venipuncture / Unknown 08/01/2024 8:20 AM EST 08/01/2024 8:30 AM EST Aubree Silverio MD CHEMISTRY ORDERABL ES Performing Organization Address [facility] de Phone Number [facility] [place] [address] * POC, GLUCOSE (08/01/2024 7:44 AM EST) Glucometer, POC 86 65 - 199 mg/dL 08/01/2024 7:44 AM EST [facility] Comment:Supplemental ranges: <140 mg/dL before meals <180 mg/dL all other times of the day. Blood CAPILLARY BLOOD / Unknown 08/01/2024 7:44 AM EST 08/01/2024 7:44 AM EST Krystal Parker MD POINT OF CARE TEST O RDERASHAY Performing Organization Address [facility] Co de Phone Number [facility] [place] [address] * (ABNORMAL) CBC (with Diff) (08/01/2024 4:18 AM EST) White Blood Cell 8.51 4.00 - 9.50 x10(3)/mc L 08/01/2024 4:[address] [facility] Red Blood Cell 4.12(L) 4.58 - 5.54 x10(6)/mc L 08/01/2024 4:[address] [facility] Hemoglobin 11.2(L) 13.7 - 16.5 g/dL 08/01/2024 4:[address] [facility] Hematocrit 33.8(L) 40.5 - 48.5 [...] HEMATOLOGY ORDERABLE S [facility] [place] [address] * Magnesium (08/01/2024 4:18 AM EST) Magnesium 0.74 0.69 - 1.07 mMol/L 08/01/2024 5:[address] [facility] Blood VENOUS BLOOD SPECIMEN / Unknown Venipuncture / Unknown 08/01/2024 4:18 AM EST 08/01/2024 4:29 AM EST Bridgette Stauffer MD CHEMISTRY ORDERABLES [facility] [place] [address] * (ABNORMAL) Basic Metabolic Panel (08/01/2024 4:18 [...] Stauffer MD CHEMISTRY ORDERABLES Performing Organization Address [facility] Co de Phone Number [facility] [place] [address] * POC, GLUCOSE (07/31/2024 8:41 PM EST) [facility] Signature Glucometer, POC 73 65 - 199 mg/dL 07/31/2024 8:41 PM EST [facility] Comment:Supplemental ranges: <140 mg/dL before meals <180 mg/dL all other times of the day. Blood CAPILLARY BLOOD / Unknown 07/31/2024 8:41 PM EST 07/31/2024 8:41 PM EST Krystal Parker MD POINT OF CARE TEST O RDERABLES Performing Organization Address [facility] Co de Phone Number [facility] [place] [address] * CARDIAC CATHETERIZATION (07/31/2024 5:53 PM EST) Anatomical Region Laterality Modality Other Narrative 08/01/2024 12:37 PM EST ?[facility] ? Cardiac Catheterization/Intervention Report ? Patient Name: Korey Montoya. ? Procedure Date: 07/31/2024 ? A #: [id number] ? Primary Physician: Janelle, Maldonado T ? Case #: [id number] ? File Name: [id number] ? Catheterization Order Number: [id number] ? [facility] ? Final Report [place], [place] ? Patient Name: ? Korey P. Montoya ?ID#: ?[id number] ? : ?1950 ? Procedure Date: ? [...] ? Comments: ?Impella removed from the right RN PRODUCTION with deployment of Perclose and ?Angioseal. ??Good [...] Procedure Note Maldonado Luis MD - 08/01/[address] [facility] Cardiac Catheterization/Intervention Report Patient Name: Korey Montoya Procedure Date: 07/31/2024 A #: [id number] Primary Physician: Maldonado Luis Case #: [id number] File Name: [id number] Catheterization Order Number: [id number] [facility] FinalReport [place], [place] Patient Name: Korey Montoya ID#:[id number] :1950 Procedure Date: July 31, 2024 Case [...] designated as ASA Class IV. The [facility] clinical frailtyscale is 4: Vulnerable. Diagnostic [...] procedures. Comments: Impella removed from the right RN PRODUCTION with deployment of Perclose and Angioseal. Good [...] * POC, GLUCOSE (07/31/2024 11:04 AM EST) [facility] Glucometer, POC 82 65 - 199 mg/dL 07/31/2024 11:04 AM EST [facility] Comment:Supplemental ranges: <140 mg/dL before meals <180 mg/dL all other times of the day. Blood CAPILLARY BLOOD / Unknown 07/31/2024 11:04 AM EST 07/31/2024 11:04 AM EST Krystal Parker MD POINT OF CARE TEST O RDERABLES [facility] [place] [address] * (ABNORMAL) Blood Gas, Arterial POC (07/31/2024 [...] TEST O JOSH Performing Organization Address City/[facility] Co de Phone Number [facility] [place] [address] * POC, GLUCOSE (07/31/2024 7:47 AM EST) [facility] Signature Glucometer, POC 82 65 - 199 mg/dL 07/31/2024 7:53 AM EST [facility] Comment:Supplemental ranges: <140 mg/dL before meals <180 mg/dL all other times of the day. Blood CAPILLARY BLOOD / Unknown 07/31/2024 7:47 AM EST 07/31/2024 7:53 AM EST Krystal Parker MD POINT OF CARE TEST O JOSH Performing Organization Address [facility] Co de Phone Number [facility] [place] [address] * (ABNORMAL) CBC (with Diff) (07/31/2024 1:08 [...] Immature Gran % 0.2 % 1:[address] [facility] Immature Gran Absolute <0.04 0.00 - 0.04 x10(3)/mc L 07/31/2024 1:[address] [facility] Blood VENOUS BLOOD SPECIMEN / Unknown Venipuncture / Unknown 07/31/2024 1:08 AM EST 07/31/2024 1:18 AM EST Bridgette Stauffer MD HEMATOLOGY ORDERABLE S [facility] [place] [address] * Magnesium (07/31/2024 1:08 AM EST) Magnesium 0.89 0.69 - 1.07 mMol/L 07/31/2024 1:46 AM EST [facility] Blood VENOUS BLOOD SPECIMEN / Unknown Venipuncture / Unknown 07/31/2024 1:08 AM EST 07/31/2024 1:18 AM EST Bridgette Stauffer MD CHEMISTRY ORDERABLES [facility] [place] [address] * (ABNORMAL) Basic Metabolic Panel (07/31/2024 1:08 [...] 3.5 - 5.0 mMol/L 07/31/2024 1:[address] [facility] Chloride 110(H) 98 - 107 mMol/L 07/31/2024 1:[address] [facility] Carbon Dioxide 24 22 - [...] Stauffer MD CHEMISTRY ORDERABLES Performing Organization Address [facility] Co de Phone Number [facility] [place] [address] * (ABNORMAL) Hepatic Function Panel (07/31/2024 1:08 AM EST) Albumin 3.1(L) 3.2 - 5.2 g/dL 07/31/2024 1:[address] [facility] Aspartate Aminotransferase 192(H) <=39 unit/L 07/31/2024 1:[address] [facility] Alanine Aminotransferase 59(H) 0 - 55 unit/L 07/31/2024 1:[address] [facility] Alkaline Phosphatase 46 40 - [...] MD CHEMISTRY ORDERABLES Performing Organization Address City/[facility]/ZIP Co de Phone Number [facility] [place] [address] * POC, GLUCOSE (07/30/2024 8:03 PM EST) Glucometer, POC 86 65 - 199 mg/dL 07/30/2024 8:[address] [facility] Comment:Supplemental ranges: <140 mg/dL before meals <180 mg/dL all other times of the day. Blood CAPILLARY BLOOD / Unknown 07/30/2024 8:03 PM EST 07/30/2024 8:03 PM EST Krystal Parker MD POINT OF CARE TEST O RDERABLES Performing Organization Address City/[facility]/ZIP Co de Phone Number [facility] [place] [address] * Potassium (07/30/2024 8:03 PM EST) Potassium 3.8 3.5 - 5.0 mMol/L 07/30/2024 9:13 PM EST [facility] Blood VENOUS BLOOD SPECIMEN / Unknown Venipuncture / Unknown 07/30/2024 8:03 PM EST 07/30/2024 8:22 PM EST Aubree Silverio MD CHEMISTRY ORDERABL ES Performing Organization Address [facility] Co de Phone Number [facility] [place] [address] * POC, GLUCOSE (07/30/2024 6:23 PM EST) Glucometer, POC 93 65 - 199 mg/dL 07/30/2024 6:24 PM EST [facility] Comment:Supplemental ranges: <140 mg/dL before meals <180 mg/dL all other times of the day. Blood CAPILLARY BLOOD / Unknown 07/30/2024 6:23 PM EST 07/30/2024 6:24 PM EST Krystal Parker MD POINT OF CARE TEST O RDERABLES Performing Organization Address City/[facility]/ZIP Co de Phone Number [facility] [place] [address] * POC, GLUCOSE (07/30/2024 5:08 PM EST) Glucometer, POC 78 65 - 199 mg/dL 07/30/2024 5:08 PM EST [facility] Comment:Supplemental ranges: <140 mg/dL before meals <180 mg/dL all other times of the day. Blood CAPILLARY BLOOD / Unknown 07/30/2024 5:08 PM EST 07/30/2024 5:08 PM EST Krystal Parker MD POINT OF CARE TEST O RDERABLES Performing Organization Address [facility] Co de Phone Number [facility] [place] [address] * (ABNORMAL) Phosphorus (07/30/2024 3:08 PM EST) Phosphorus 2.1(L) 2.5 - 4.5 mg/dL 07/30/2024 3:58 PM EST [facility] Blood VENOUS BLOOD SPECIMEN / Unknown Venipuncture / Unknown 07/30/2024 3:08 PM EST 07/30/2024 3:12 PM EST Aubree Silverio MD CHEMISTRY ORDERABL ES Performing Organization Address [facility] Co de Phone Number [facility] [place] [address] * Magnesium (07/30/2024 3:08 PM EST) Magnesium 0.90 0.69 - 1.07 mMol/L 07/30/2024 3:58 PM EST [facility] Blood VENOUS BLOOD SPECIMEN / Unknown Venipuncture / Unknown 07/30/2024 3:08 PM EST 07/30/2024 3:12 PM EST Aubree Silverio MD CHEMISTRY ORDERABL ES Performing Organization Address [facility] Co de Phone Number [facility] [place] [address] * (ABNORMAL) Basic Metabolic Panel (07/30/2024 3:08 [...] 22 - 31 mMol/L 07/30/2024 4:[address] [facility] Anion Gap 11 5 - 15 mMol/L 07/30/2024 4:[address] [facility] Calcium 7.9(L) 8.5 - 10.5 mg/dL 07/30/2024 4:17 PM EST [facility] Est Glomerular Filtration Rate - Male 79 mL/min/1. 73 m?? 07/30/2024 4:[address] [facility] Comment: [...] CHEMISTRY ORDERABL ES [facility] [place] [address] * ECHO LMTD W CONTRAST W LMTD SPEC DOPP COLOR DOPP (07/30/2024 11:42 AM EST) Anatomical Region Laterality Modality Cardiac Other 07/30/2024 10:2 2 AM EST Narrative 07/30/2024 12:34 PM EST [address] [place] [id number] ? Echocardiogram Report Name: KOREY MONTOYA ? Study Date: 07/30/2024 10:22 AMBP: 124/66 mmHg : 1950 ? Height: 168 cm ? Account: [id number] Age: 74 yrs ? Weight: 65 kg Gender: Male ?BSA: 1.7 m2 Ordering Physician: Aubree Silverio MD Referring Physician: CHAPARRO FERRERA Performed By: OMERO Millan Reason For Study: ST elevation myocardial infarction involving left anterior descending (LAD) coronary artery Interpreting Fellow: Ivan Hernandez. Exam Location: [facility]. Interpretation Summary Left ventricle is [...] to the overnight study by the content curator fellow the impella position is stable. 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 Procedure Limited - 72855. Image enhancement Definity was used for both [...] Note Kathleen Banda MD - 07/30/2024 [address] [place] [address] Echocardiogram Report Name: KOREY MONTOYA Study Date: 410:22 AMBP: 124/66 mmHg : 1950 Height: 168 cm Account: [id number] Age: 74 yrs Weight: 65 kg Gender: Male BSA: 1.7 m2 Ordering Physician: Aubree Silverio MD Referring Physician: CHAPARRO FERRERA Performed By: OMERO Millan Reason For Study: ST elevation myocardial infarction involving leftanterior descending (LAD) coronary artery Interpreting Fellow: Ivan Hernandez. Exam Location: [facility]. Interpretation Summary Left ventricle is [...] to the overnight study by the content curator fellow the impella positionis stable. The global left ventricular systolic function has improvedpredominantly via recruitment outside the LAD territory which remains akinetic. Procedure Limited - 35309. Image enhancement Definity was used for both [...] POC, GLUCOSE (07/30/2024 11:17 AM EST) Pathologist [facility] Glucometer, POC 97 65 - 199 mg/dL 07/30/2024 11:17 AM EST [facility] Comment:Supplemental ranges: <140 mg/dL before meals <180 mg/dL all other times of the day. Blood CAPILLARY BLOOD / Unknown 07/30/2024 11:17 AM EST 07/30/2024 11:17 AM EST Aubree Silverio MD POINT OF CARE TEST ORDERABLES [facility] [place] [address] * (ABNORMAL) Blood Gas, Arterial POC (07/30/2024 [...] CARE TEST ORDERABLES [facility] [place] [address] * (ABNORMAL) Troponin - Single (07/30/2024 8:09 [...] troponin value can be found in the [facility] Test Catalog Troponin - [email or web address] Reference: Fourth [place] Definition of Myocardial Infarction. Journal of the [place] [employer] 2018;72:5009-1005 Blood VENOUS BLOOD SPECIMEN / Unknown Venipuncture / Unknown 07/30/2024 8:09 AM EST 07/30/2024 8:26 AM EST Aubree Silverio MD CHEMISTRY ORDERABL ES Performing Organization Address City/[facility]/ZIP Co de Phone Number [facility] [place] [address] * POC, GLUCOSE (07/30/2024 7:40 AM EST) [facility] Glucometer, POC 111 65 - 199 mg/dL 07/30/2024 7:40 AM EST [facility] Comment:Supplemental ranges: <140 mg/dL before meals <180 mg/dL all other times of the day. Blood CAPILLARY BLOOD / Unknown 07/30/2024 7:40 AM EST 07/30/2024 7:40 AM EST Aubree Silverio MD POINT OF CARE TEST ORDERABLES Performing Organization Address [facility] Co de Phone Number [facility] [place] [address] * (ABNORMAL) CBC (with Diff) (07/30/2024 2:11 AM EST) [facility] White Blood Cell 11.25(H) 4.00 - [...] HEMATOLOGY ORDERABLE S [facility] [place] [address] * Magnesium (07/30/2024 2:11 AM EST) Pathologist [facility] Magnesium 1.01 0.69 - 1.07 mMol/L 07/30/2024 2:51 AM EST [facility] Blood VENOUS BLOOD SPECIMEN / Unknown Venipuncture / Unknown 07/30/2024 2:11 AM EST 07/30/2024 2:22 AM EST Bridgette Stauffer MD CHEMISTRY ORDERABLES [facility] [place] [place] [address] * (ABNORMAL) Basic Metabolic Panel (07/30/2024 2:11 [...] 5 - 15 mMol/L 07/30/2024 2:[address] [facility] Calcium 7.7(L) 8.5 - 10.5 mg/dL 07/30/2024 2:[address] [facility] Est Glomerular Filtration Rate - Male 91 mL/min/1. 73 m?? 07/30/2024 2:[address] [facility] Comment: [...] MD CHEMISTRY ORDERABLES [facility] [place] [address] * (ABNORMAL) Cooximetry, POC (07/30/2024 1:00 AM EST) pO2, Coox 28 mmHg 07/30/2024 1:[address] [facility] Hemoglobin, Coox 12.7(L) 13.7 - 16.5 g/dL 07/30/2024 1:[address] [facility] Oxyhemoglobin, Coox 54.9 % 07/30/2024 [...] City/State/[facility] Co de Phone Number [facility] [place] [address] * (ABNORMAL) Blood Gas, Arterial POC (07/30/2024 [...] CARE TEST ORDERABLES [facility] [place] [address] * (ABNORMAL) Troponin - Single (07/29/2024 10:31 PM EST) Pathologist [facility] Troponin-T, High Sensitivity >10,000(H ) [...] troponin value can be found in the [facility] Laboratory Test Catalog Troponin - [email or web address]/catalogs/565/files/31232 Reference: Fourth Sidney Definition of Myocardial Infarction. Journal of the [place] College [employer] 2018;72:5042-0244 Blood VENOUS BLOOD SPECIMEN / Unknown Venipuncture / Unknown 07/29/2024 10:31 PM EST 07/29/2024 10:36 PM EST Yrn Ward MD CHEMISTRY ORDERABL ES [facility] [place] [address] * Potassium (07/29/2024 8:11 PM EST) Pathologist [facility] Potassium 4.1 3.5 - 5.0 mMol/L 07/29/2024 8:52 PM EST [facility] Blood VENOUS BLOOD SPECIMEN / Unknown Venipuncture / Unknown 07/29/2024 8:11 PM EST 07/29/2024 8:16 PM EST Aubree Silverio MD CHEMISTRY ORDERABL ES Performing Organization Address [facility]/ZIP Co de Phone Number [facility] [place] [address] * (ABNORMAL) Troponin - Single (07/29/2024 8:11 [...] troponin value can be found in the [facility] Test Catalog Troponin - [email or web address].org/catalogs/565/files/68019 Reference: Fourth Sidney Definition of Myocardial Infarction. Journal of the [place] College [employer] 2018;72:6756-8156 Blood VENOUS BLOOD SPECIMEN / Unknown Venipuncture / Unknown 07/29/2024 8:11 PM EST 07/29/2024 8:16 PM EST Aubree Silverio MD CHEMISTRY ORDERABL ES [facility] [place] [address] * (ABNORMAL) Phosphorus (07/29/2024 8:11 PM EST) Phosphorus 2.1(L) 2.5 - 4.5 mg/dL 07/29/2024 8:52 PM EST [facility] Blood VENOUS BLOOD SPECIMEN / Unknown Venipuncture / Unknown 07/29/2024 8:11 PM EST 07/29/2024 8:16 PM EST Aubree Silverio MD CHEMISTRY ORDERABL ES Performing Organization Address [facility] Co de Phone Number [facility] [place] [address] * POC, GLUCOSE (07/29/2024 8:09 PM EST) [facility] Signature Glucometer, POC 142 65 - 199 mg/dL 07/29/2024 8:09 PM EST [facility] Comment:Supplemental ranges: <140 mg/dL before meals <180 mg/dL all other times of the day. Blood CAPILLARY BLOOD / Unknown 07/29/2024 8:09 PM EST 07/29/2024 8:09 PM EST Aubree Silverio MD POINT OF CARE TEST ORDERABLES Performing Organization Address [facility] Co de Phone Number [facility] [place] [address] * ABORH RECHECK (07/29/2024 6:43 PM EST) ABORH Recheck AB POSITIVE 07/29/2024 10:13 PM EST [facility] Blood VENOUS BLOOD SPECIMEN / Unknown Venipuncture / Unknown 07/29/2024 6:43 PM EST 07/29/2024 7:15 PM EST Aubree Silverio MD BLOOD BANK LAB ORD ERABLES Performing Organization Address City/[facility]/ZIP Co de Phone Number [facility] [place] [address] * POC, GLUCOSE (07/29/2024 5:57 PM EST) [facility] Glucometer, POC 166 65 - 199 mg/dL 07/29/2024 5:57 PM EST [facility] Comment:Supplemental ranges: <140 mg/dL before meals <180 mg/dL all other times of the day. Blood CAPILLARY BLOOD / Unknown 07/29/2024 5:57 PM EST 07/29/2024 5:57 PM EST Aubree Silverio MD POINT OF CARE TEST ORDERABLES [facility] [place] [address] * Type and screen ([facility]CGP/MAGALIE) (07/29/2024 5:56 PM EST) [facility] ABORH Type AB POSITIVE 07/29/2024 9:44 PM EST [facility] PATIENT HISTORY Not Found 07/29/2024 9:44 PM EST [facility] Expires at [id number] on: 08/01/2024 07/29/2024 9:44 PM EST [facility] ANTIBODY SCREEN AUTOMATED Negative 07/29/2024 9:44 PM EST [facility] T&S only valid at [facility] 07/29/2024 9:44 PM EST [facility] Blood VENOUS BLOOD SPECIMEN / Unknown Venipuncture / Unknown 07/29/2024 5:56 PM EST 07/29/2024 6:07 PM EST Narrative [facility] - 07/29/2024 9:44 PM EST This Type and Screen result is only valid at the [facility] Aubree Silverio MD BLOOD BANK LAB ORD ERABLES [facility] [place] [address] * (ABNORMAL) Troponin - Single (07/29/2024 4:52 PM EST) [facility] Troponin-T, High Sensitivity >10,000(H ) <=22 [...] troponin value can be found in the [facility] Test Catalog Troponin - https://[email or web address].[email or web address]/catalogs/565/files/39916 Reference: Fourth Sidney Definition of Myocardial Infarction. Journal of the [place] College [employer] 2018;72:5658-6134 Blood VENOUS BLOOD SPECIMEN / Unknown Venipuncture / Unknown 07/29/2024 4:52 PM EST 07/29/2024 4:57 PM EST Aubree Silverio MD CHEMISTRY ORDERABL ES [facility] [place] [address] * EKG 12 Lead (07/29/2024 4:21 PM EST) Ventricular rate 72 BPM MUSE SYSTEM Atrial Rate 72 BPM MUSE SYSTEM P-R Interval 168 ms MUSE SYSTEM QRS Duration 82 ms MUSE SYSTEM Q-T Interval 392 ms MUSE SYSTEM QTC Calculated (Bezet) 429 ms MUSE SYSTEM Calculated P [place] 71 degrees MUSE SYSTEM Calculated R [place] 77 degrees MUSE SYSTEM Calculated T [place] 28 degrees MUSE SYSTEM INTERPRETATION Sinus rhythm [...] CARE TEST ORDERABLES [facility] [place] [address] * POC, GLUCOSE (07/29/2024 4:19 PM EST) Glucometer, POC 185 65 - 199 mg/dL 07/29/2024 4:[address] [facility] Comment:Supplemental ranges: <140 mg/dL before meals <180 mg/dL all other times of the day. Blood CAPILLARY BLOOD / Unknown 07/29/2024 4:19 PM EST 07/29/2024 4:19 PM EST Aubree Silverio MD POINT OF CARE TEST ORDERABLES Performing Organization Address [facility] Co de Phone Number [facility] [place] [address] * Blood culture (07/29/2024 4:08 PM EST) Blood Culture No growth at 120 hours 08/03/2024 5:01 PM EST [facility] Blood VENOUS BLOOD SPECIMEN / Unknown Venipuncture / Unknown 07/29/2024 4:08 PM EST 07/29/2024 4:15 PM EST Aubree Silverio MD MICROBIOLOGY - BLO OD ORDERABLES Performing Organization Address [facility] [place] [address] * Blood culture (07/29/2024 4:08 PM EST) Blood Culture No growth at 120 hours 08/03/2024 5:01 PM EST [facility] Blood VENOUS BLOOD SPECIMEN / Unknown Venipuncture / Unknown 07/29/2024 4:08 PM EST 07/29/2024 4:26 PM EST Aubree Silverio MD MICROBIOLOGY - BLO OD ORDERABLES Performing Organization Address [facility] Co de Phone Number [facility] [place] [address] * XR Chest One View (07/29/2024 2:30 PM EST) WORKSTATION ID [id number] RAD Anatomical Region Laterality Modality Chest N/A [...] questions please contact the health wound care center consultant that requested your imaging first. ? Narrative [...] have questions please contactthe health wound care center consultant that requested your imaging first. Vahe Marvin MD IMG DX ORDERABLES * (ABNORMAL) APTT (07/29/2024 2:03 PM EST) Partial Thromboplastin Time >160(HHH) 25 - 37 sec 07/29/2024 2:56 PM EST [facility] Blood VENOUS BLOOD SPECIMEN / Unknown Venipuncture / Unknown 07/29/2024 2:03 PM EST 07/29/2024 2:13 PM EST Vahe Marvin MD HEMATOLOGY ORDERABLE S Performing Organization Address [facility] Co de Phone Number [facility] [place] [address] * (ABNORMAL) Prothrombin Time (07/29/2024 2:03 PM [...] MD HEMATOLOGY ORDERABLE S Performing Organization Address [facility] Co de Phone Number [facility] [place] [address] * CRP, acute inflammation (07/29/2024 2:03 PM EST) C-Reactive Protein <3.0 <=4.9 mg/L 07/29/2024 2:[address] [facility] Blood VENOUS BLOOD SPECIMEN / Unknown Venipuncture / Unknown 07/29/2024 2:03 PM EST 07/29/2024 2:14 PM EST Vahe Marvin MD CHEMISTRY ORDERABLES [facility] [place] [address] * Lipid Panel (Reflex Direct LDL) (07/29/2024 [...] ACC/AHA Guidelines (most recently Rolf et al. [facility] 06/15/22): * For individuals with atherosclerotic [...] MD CHEMISTRY ORDERABLES Performing Organization Address City/[facility]/ZIP Co de Phone Number [facility] [place] [address] * TSH [place] (07/29/2024 2:03 PM EST) Thyroid Stimulating Hormone 0.70 0.27 - 4.20 mcIU/mL 07/29/2024 2:52 PM EST [facility] Blood VENOUS BLOOD SPECIMEN / Unknown Venipuncture / Unknown 07/29/2024 2:03 PM EST 07/29/2024 2:14 PM EST Vahe Marvin MD CHEMISTRY ORDERABLES Performing Organization Address City/[facility]/ZIP Co de Phone Number [facility] [place] [address] * Hemoglobin A1c (07/29/2024 2:03 PM EST) Pathologist [facility] Hemoglobin A1c 5.3 4.3 - [...] red blood cell turnover may not be b2b outside sales representative of glycemic control. Reference Interval: [...] into estimated average glucose values. ??Diabetes Care 2008:31(8):1207-4384. Additional resources are available on the ADA website (diabetes.org). Vahe Marvin MD CHEMISTRY ORDERABLES [facility] [place] [address] * (ABNORMAL) CBC (with Diff) (07/29/2024 2:03 PM EST) White Blood Cell 19.50(H) 4.00 - 9.50 x10(3)/mc L 07/29/2024 2:18 PM EST [facility] Red Blood Cell 4.81 4.58 - 5.54 x10(6)/mc L 07/29/2024 2:18 PM EST [facility] Hemoglobin 13.1(L) 13.7 - 16.5 g/dL 07/29/2024 2:[address] [facility] Hematocrit 40.1(L) 40.5 - 48.5 % 07/29/2024 2:18 PM EST [facility] Mean Cell Volume 83.4 82.9 - 93.1 fL 07/29/2024 2:[address] [facility] Mean Cell Hemoglobin 27.2(L) 27.5 - 32.1 pg 07/29/2024 2:[address] [facility] Mean Cell Hemoglobin Concentration 32.7 32.0 - 35.7 g/dL 07/29/2024 2:[address] [facility] Platelet 236 145 - 357 x10(3)/mc L 07/29/2024 2:[address] [facility] Mean Platelet Volume 10.6 7.6 - 12.9 fL 07/29/2024 2:[address] [facility] RDW Standard Deviation 43.7 36.0 [...] HEMATOLOGY ORDERABLE S Performing Organization Address City/[facility]/ZIP Co de Phone Number [facility] [place] [address] * Phosphorus (07/29/2024 2:03 PM EST) Phosphorus 2.5 2.5 - 4.5 mg/dL 07/29/2024 2:52 PM EST [facility] Blood VENOUS BLOOD SPECIMEN / Unknown Venipuncture / Unknown 07/29/2024 2:03 PM EST 07/29/2024 2:14 PM EST Vahe Marvin MD CHEMISTRY ORDERABLES Performing Organization Address City/[facility]/ZIP Co de Phone Number [facility] [place] [address] * Magnesium (07/29/2024 2:03 PM EST) Magnesium 0.70 0.69 - 1.07 mMol/L 07/29/2024 2:52 PM EST [facility] Blood VENOUS BLOOD SPECIMEN / Unknown Venipuncture / Unknown 07/29/2024 2:03 PM EST 07/29/2024 2:14 PM EST Vahe Marvin MD CHEMISTRY ORDERABLES [facility] [place] [address] * (ABNORMAL) Comprehensive metabolic panel (07/29/2024 2:03 PM EST) Glucose 243(H) 65 - 199 mg/dL 07/29/2024 3:[address] [facility] Comment:Glucose Concentratio n >=200 mg/dL plus symptoms is consistent with Diabetes Mellitus. Blood Urea Nitrogen 13 10 - 20 mg/dL 07/29/2024 3:[address] [facility] Creatinine 0.88 [...] MD CHEMISTRY ORDERABLES [facility] [place] [address] * (ABNORMAL) Troponin - Single (07/29/2024 2:03 [...] troponin value can be found in the [facility] Test Catalog Troponin - [email or web address]://[email or web address].org/catalogs/565/files/92851 Reference: Fourth Sidney Definition of Myocardial Infarction. Journal of the [place] College [employer]iology 2018;72:7185-3437 Blood VENOUS BLOOD SPECIMEN / Unknown Venipuncture / Unknown 07/29/2024 2:03 PM EST 07/29/2024 2:14 PM EST Vahe Marvin MD CHEMISTRY ORDERABLES [facility] [place] [address] * (ABNORMAL) Blood Gas, Venous POC (07/29/2024 [...] 98 - 107 mmol/L 07/29/2024 2:[address] [facility] Glucose, Venous 229(H) 65 - 199 mg/dL 07/29/2024 2:[address] [facility] Comment:Glucose Concentratio n >=200 mg/dL plus symptoms is consistent with Diabetes Mellitus. Lactate, Venous 3.1(H) 0.5 - 2.2 mmol/L 07/29/2024 2:[address] [facility] Ionized Calcium, Venous 1.11(L) 1.15 - 1.33 mmol/L 07/29/2024 2:[address] [facility] Blood VENOUS BLOOD SPECIMEN / Unknown 07/29/2024 2:01 PM EST 07/29/2024 2:02 PM EST Vahe Marvin MD POINT OF CARE TEST O RDERABLES [facility] [place] [address] * CARDIAC CATHETERIZATION (07/29/2024 1:20 PM EST) Anatomical Region Laterality Modality Other Narrative 07/29/2024 2:02 PM EST ?[facility] ? Cardiac Catheterization/Intervention Report ? Patient Name: Korey Montoya. ? Procedure Date: 07/29/2024 ? A #: [id number] ? Primary Physician: Shavonne, Vahe S ? Case #: [id number] ? File Name: [id number] ? Catheterization Order Number: [id number] ? [facility] ? Final Report [place], [place] ? Patient Name: ? Korey P. Montoya ?ID#: ?[id number] ? : ?1950 ? Procedure Date: ? July 29, 2024 ?Case #: ? [id number] ? Room: ? 5 ? Case Physician: [...] procedure was Emergent. The indication for ?the dental laboratory assistant visit is ACS less than or [...] 3.5 guiding catheter and a 3.5 Fr [place] [facility] [address] ??20 Mhz using ?Manual pullback. ??Imaging [...] A premounted 3.00 x 22 mm [place] (LOW) was deployed ? with a maximum [...] ??A premounted 3.00 x 08 mm [place] (LOW) ? was deployed with a maximum [...] dose administered prior to arrival in the dental laboratory assistant. ?Recommended anti-platelet/anti-thrombotic regimen: ?Start aspirin 81 mg daily now and continue for 12 months then stop. ?Start clopidogrel 75 mg daily now and continue for indefinitely. ?These recommendations are made at the time of the intervention. Patient ?and provider preferences or a changing clinical situation may require ?modification of this regimen. Consult [facility] Interventional Cardiology for ?questions. ?The 1 year [...] able ?to start weaning his inotropes/vasopressors. A [place] Colette catheter was ?placed demonstrating improvement in [...] ventricular assist device insertion, right heart ?catheterization, [place] (flow directed cath) insertion, access site ?angiography, vascular ultrasound, venous line / sheath insert and vascular ?closure device. ? Vahe Marvin M.D. ? Electronically Signed by: Vahe Marvin M.D. ? Report Finalized: 07/29/2024 ??13:55 ? Report Last Ammended: 09/20/2024 ??15:21 ? Procedure Note Vahe Marvin MD - 09/20/[address] [facility] Cardiac Catheterization/Intervention Report Patient Name: Korey Montoya Procedure Date: 07/29/2024 A #: [id number] Primary Physician: Vahe Marvin Case #: [id number] File Name: [id number] Catheterization Order Number: [id number] [facility] FinalReport [place], [place] Patient Name: Korey Montoya ID#:[id number] :1950 Procedure Date: July 29, 2024 Case [...] designated as ASA Class IV. The [facility] clinical frailtyscale is 4: Vulnerable. Diagnostic Tests: Electrocardiography: EKG was assessed by ECG. EKG was Abnormal. EKG showed STDeviation >= 0.5 mm. Medications Prior to Procedure: Angiotensin II Receptor Elvis and Statin. Indications for Diagnostic Cath: The priority of the diagnostic procedure was Emergent. Theindication for the dental laboratory assistant visit is ACS less than or [...] 3.5 guiding catheter and a 3.5 Fr [place] [facility] [address] 20 Mhzusing Manual pullback. Imaging was [...] The priority for the procedure was Emergent.The [facility] indication for the procedure was STEMI-Immediate PCI [...] The lesion was predilated with a 2.00mm [id number] MM balloon with a maximum inflation pressure of 12atmospheres. A premounted 3.00 x 22 mm [place] (LOW) wasdeployed with a maximum inflation pressure [...] atmospheres. A premounted 3.00 x 08 mm [place](LOW) was deployed with a maximum inflation pressure [...] dose administered prior to arrival in the dental laboratory assistant. Recommended anti-platelet/anti-thrombotic regimen: Start aspirin 81 mg daily now and continue for 12 months then stop. Start clopidogrel 75 mg daily now and continue for indefinitely. These recommendations are made at the time of the intervention.Patient and provider preferences or a changing clinical situation mayrequire modification of this regimen. Consult [facility] Interventional Cardiologyfor questions. The 1 year bleeding [...] wereable to start weaning his inotropes/vasopressors. A [place] Colette catheterwas placed demonstrating improvement in his [...] ventricular assist device insertion, right heart catheterization, [place] (flow directed cath) insertion, access site angiography, [...] [facility] Potassium, POC 3.4(L) 3.5 - [...] TEST O RDERABLES [facility] [place] [address] * (ABNORMAL) BLOOD GAS, POC (07/29/2024 12:12 [...] TEST O RDERABLES [facility] [place] [address] documented in this encounter Visit Diagnoses Diagnosis [...] based off of anti-Xa levels per the [facility] Anti-Xa Algorithm and inform the ECMO attending. [...] must be infused through a [facility] 07/30/2024 10:25 PM EST 20 [...] must be infused through a [facility] 08/01/2024 5:14 AM EST 20 [...] Routine documented in this encounter Care Teams Car Porter Relationship Specialty Start Date End Date Alexia Mtz, WOMEN'S BASKETBALL COACH [address] [place] [address] PCP - General Family Medicine 07/30/24 documented as of this encounter
--- OUTSIDE RECORDS SUMMARY | 2024-10-15 10:02 | XMS_ITS | Encounter Summary ---
Author Organization [facility] Address [facility] [place] [address] Care Team Providers Care Getterer Name Role Phone Yoel Artis Ute ALCALA Primary Care Provider [phone] Encounter Details Date Type Department Care Team (Late st Contact Info) Description 07/29/2024 [place] [address] Susannah Watts PA [facility] [place] [address] [place] [address] Social History Tobacco Use Types Packs/Day Years Used Date Smoking Tobacco: Former Cigarettes Smokeless Tobacco: Never Alcohol Use Standard Drinks/Week Comments Not Currently 0 (1 standard drink = 0.6 oz pur e alcohol) [facility] Utilities Answer Date Recorded In the past 12 months has [employer], [employer], oil, or water [employer] threatened to shut off services in [...] 9:30 AM EST Appointment [place] [phone] Mushtaq Murphy, WASTEWATER ENGINEER 10/31/2024 11:00 AM EST Office Visit Cardiology at [address] [phone] Mushtaq Murphy, WASTEWATER ENGINEER documented as of this encounter Procedures Procedure Name Priority Date/Time Associated Diagnosis Comments ECHOCARDIOGRAM TRANSTHORACIC Routine 07/30/2024 1:41 AM EST documented in this encounter Results * Echocardiogram Transthoracic (07/30/2024 1:41 AM EST) Anatomical Region Laterality Modality Cardiac Other 07/30/2024 1:41 AM EST Narrative 07/30/2024 8:23 AM EST [address] [place] [id number] ? Echocardiogram Report Name: BERMUDEZ KOREY Kyrie ? Study Date: 07/30/2024 01:41 AM : 1950 ? Height: 168 cm Age: 74 yrs ? Weight: 5.9 kg Gender: Male ?BSA: 0.63 m2 Performed By: Beatris Ching MD Reason For Study: STEMI, VT History: ASCVD, HTN, HLD Interpreting Fellow: Beatris Ching. Interpretation Summary This is a limited study performed by a fellow litigation attorney to evaluate for cardiogenic shock with impella [...] study available for comparison. Procedure Limited - 76353. Suboptimal quality. There is sinus bradycardia. Left [...] Note Kathleen Banda MD - 07/30/2024 [address] [place] [address] Echocardiogram Report Name: KOREY BERMUDEZ Study Date: 07/30/2024 01:41AM : 1950 Height: 168 cm Age: 74 yrs Weight: 5.9 kg Gender: Male BSA: 0.63 m2 Performed By: Beatris Ching MD Reason For Study: STEMI, VT History: ASCVD, HTN, HLD Interpreting Fellow: Beatris Ching. Interpretation Summary This is a limited study performed by a fellow litigation attorney to evaluate forcardiogenic shock with impella in. [...] study available for comparison. Procedure Limited - 84755. Suboptimal quality. There is sinus bradycardia. Left [...] on filedocumented in this encounter Care Teams Getterer Relationship Specialty Start Date End Date Yoel Artis APRN [address] [place] [address] PCP - General Internal Medicine 11/18/22 07/29/24 documented as of this encounter
--- OUTSIDE RECORDS SUMMARY | 2024-10-15 10:02 | XMS_ITS | Encounter Summary ---
[place] [address] Care Team Providers Care Wool Fleece Sorter Name Role Phone Alexia Mtz FREDRICK Primary Care Provider [phone] Reason for Visit * Auth/Cert (Routine) Specialty Diagnoses / Procedures Referred By Theodore muro Referred To Contact Diagnoses STEMI (ST elevation myocardial infarction) STEMI Procedures ER SUI Vahe Marvin MD [facility] [place] [address] [facility] Referral ID Status Reason Start Date Expiration Date Visits Re quested Visits Authorized [id number] 1 1 Encounter Details Date Type Department Care Team (Late st Contact Info) Description 07/31/2024 4:30 PM EST - 07/31/2024 5:30 PM EST [place] [address] Maldonado Luis MD [facility] [place] [address] CARDIAC CATHETERIZATION Social History Tobacco Use Types Packs/Day Years Used Date Smoking Tobacco: Former Cigarettes Smokeless Tobacco: Never Alcohol Use Standard Drinks/Week Comments Not Currently 0 (1 standard drink = 0.6 oz pur e alcohol) [facility] Utilities Answer Date Recorded In the past 12 months has [employer] electric, gas, oil, or water company threatened [...] Korey Montoya Patient Age: 74 y.o. Language: St Helen[place] Race: White Ethnicity: Not nor Admit date: [...] please contact your inpatient physician through the [facility] Flake Drier . Issues afterhours and on weekends will [...] EKG. Patient transferred via air ambulance to [facility] on 07/29 for LHC and LOW [...] EKG. Was transferred via air ambulance to [facility] for further management and LHC demonstrated [...] the next year. Access was via right LIME VAT TENDER and this sitewas clean, dry and intact [...] for Chest pain. Replaces: nitroGLYcerin 400 mcg/spray [place], Non-Aerosol 0.4 mg Quantity: 90 tablet Refills: [...] Refills: 0 STOPPED Medications nitroGLYcerin 400 mcg/spray [place], Non-Aerosol Commonly known as: NITROLINGUAL Replaced by: [...] of one year. After this time, your summer clerk will determine if you need to continue [...] away. Stay on the phone. The emergency cleaner operator will tell you what to do. [...] appointments: During 8am-5pm Tuesday through Tuesday call [phone] to speak with a nurse in the cardiology clinic All other times call [phone] and ask to speak to the welder metal fab director summer sessions. Follow up Appointments: PCP Alexia Mtz, CONTESTANT COORDINATOR [phone]. Please call to establish a follow up appointment within 1-2 weeks of discharge. Cardiology. Referral to heart failure has been sent. General Instructions None Future Appointments and Orders Future Orders Complete By Expires Referral to Cardiac Rehab [[id number] Custom] As directed Process Instructions: If no progress note charted, please enter Clinical details in comments. Scheduling Instructions: Questions: My question or request is: STEMI, PCI- cardiac rehab at [facility] Referral to Cardiology [REF12 Custom] [...] of one year. After this time, your summer clerk will determine if you need to continue [...] away. Stay on the phone. The emergency cleaner operator will tell you what to do. [...] appointments: During 8am-5pm Tuesday through Tuesday call [phone] to speak with a nurse in the cardiology clinic All other times call [phone] and ask to speak to the welder metal fab director summer sessions. Follow up Appointments: PCP Alexia Mtz, CONTESTANT COORDINATOR [phone]. Please call to establish a follow up [...] EKG. Patient transferred via air ambulance to [facility] on 07/29 for LHC and LOW to LAD for 100% occlusion Social History: Pt lives with his in a 1 level home with 2 NAOMI. 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 He [...] Total time: 35 (tef) minutes Time IN/OUT: [id number] ZAIDA DUBOSE PT Pager: [phone] Physical Therapy Inpatient Rehabilitation Department * Yrn Ward MD - 08/03/2024 10:38 AM EST CV HOSPITALIST 2 - [facility] DAILY PROGRESS NOTE Page [phone] to reach a provider 04/04 Admit Date: [...] Compared to the overnight study by the director summer sessions fellow the impella position is stable. 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 [facility] 07/29/24 Conclusions: * One vessel coronary artery disease (LAD) * Mild pulmonary hypertension * Elevated pulmonary capillary wedge pressure * Successful stent insertion of the proximal LAD lesion * See Dual Antiplatelet (DAPT) Recommendations above * Successful impella placement for cardiogenic shock. Telemetry: I have personally reviewed and interpreted the telemetry from the last 24 hours. [facility] Assessment: ASSESSMENT: Korey Montoya is a 74 y.o. male w/ PMH of hypertension, HLD, and BPH who presents for chief concern of chest pain after being found to have ST elevations on EKG. Patient transferred via air ambulance to [facility] on 07/29 for C and LOW [...] to be determined OT: PCP Alexia Mtz, CONTESTANT COORDINATOR [phone] * Zaida Dubose, PT - 08/02/2024 2:08 PM EST Physical Therapy Evaluation Patient profile: Korey Montoya is a 74 y.o. male w/ PMH of hypertension, HLD, and BPH who presents for chief concern of chest pain after being found to have ST elevations on EKG. Patient transferred via air ambulance to [facility] on 07/29 for LHC and LOW to LAD for 100% occlusion Social History: Pt lives with his in a 1 level home with 2 NAOMI. 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 He [...] Total time: 37 (eval) minutes Time IN/OUT: [id number] ZAIDA DUBOSE, PT Pager: [phone] Physical Therapy Inpatient Rehabilitation Department * Gagan [...] EKG. Patient transferred via air ambulance to [facility] on 07/29 for LHC and LOW to LAD for 100% occlusion. TTE showed apical akinesis and inferior hypokinesis with EF 20%. RHC showed elevated filling pressures. Impella placed and P-level 6 at time of transfer to [facility]. CI initially 1.97, improved to 2.2 After impella. Received about 3 L of fluid during procedural course. Patient initially required norepinephrine 30, epinephrine 10, and vasopressin 0.04 for hemodynamic support, which was weaned upon arrival to [facility] to norepinephrine 20and levo 0.04 [...] PCP: Alexia Mtz APRN PCP phone number: [phone] Date of Admission: 07/29/2024 ( Hospital Day 4 days ) Attending:Bridgette Stauffer MD ID: Korey Montoya is a 74 y.o. male w/ PMH of hypertension, HLD, and BPH on Hospital Day4 for chief concern of chest pain after being found to have ST elevations on EKG. Patient transferred via air ambulance to [facility] on 07/29 for LHC and LOW [...] 07/29/24 1621 PHART 7.48* 7.44 7.38 7.37 [id number] 29* 29* 34* 36 PO2ART 71* 109* 141* 71* YNR5VMU 20.6 19.4* 19.5* 20.4 VBG (Venous Blood Gas) Recent Labs 07/29/24 1401 PHVEN 7.30* PO2VEN 39 UKJ4QQQ 20.1* Mixed Venous Sat No results for input(s): T5PYKZ2 in the last 168 hours. Objective: Vitals [...] 07/29/24 1621 PHART 7.48* 7.44 7.38 7.37 RSO3XXS 29* 29* 34* 36 PO2ART 71* 109* 141* 71* EKN4JOD 20.6 19.4* 19.5* 20.4 VBG (Venous Blood Gas) Recent Labs 07/29/24 1401 PHVEN 7.30* PO2VEN 39 MFN5LKD 20.1* Mixed Venous Sat No results for input(s): G1ERJD4 in the last 168 hours. Microbiology: Microbiology Results (Last 30 days) Procedure Component Value Units Date/Time Blood culture [[id number]] Collected: 07/29/241607 Lab Status: Preliminary result Specimen: Blood, Venous Updated: 08/01/241700 Blood Culture No growth at 72 hours Blood culture [[id number]] Collected: 07/29/241607 Lab Status: Preliminary result Specimen: Blood, Venous Updated: 08/01/241700 Blood Culture No growth at 72 hours Imaging: Results for orders placed or performed during the hospital encounter of 07/29/24 XR Chest One View (Exam End: 07/29/2024 2:30 PM) Result Value WORKSTATION ID [id number] Impression 1. No pulmonary edema. 2. No pleural effusion. 3. No pneumothorax. Thank you for letting us participate in the care of this patient. If you are a health care provider and have any questions regarding this report, please contact the number below. For patients who have questions please contact the health daytime caregiver that requested your imaging first. ( [...] Compared to the overnight study by the director summer sessions fellow the impella position is stable. The [...] EKG. Patient transferred via air ambulance to [facility] on 07/29 for LHC and LOW [...] Susannah Ornelas MD Internal Medicine, PGY-1 Cardiology, [facility] 08/02/24 12:45 PM CARDIOLOGY STAFF NOTE [...] today). Transfer to floor. Krystal Parker MD, [facility], [facility] Staff Senior Electrical Designer presser all around * Gagan Catherine MD - 08/01/2024 11:12 [...] EKG. Patient transferred via air ambulance to [facility] on 07/29 for LHC and LOW to LAD for 100% occlusion. TTE showed apical akinesis and inferior hypokinesis with EF 20%. RHC showed elevated filling pressures. Impella placed and P-level 6 at time of transfer to [facility]. CI initially 1.97, improved to 2.2 After impella. Received about 3 L of fluid during procedural course. Patient initially required norepinephrine 30, epinephrine 10, and vasopressin 0.04 for hemodynamic support, which was weaned upon arrival to [facility] to norepinephrine 20and levo 0.04 [...] PCP: Alexia Mtz APRN PCP phone number: [phone] Date of Admission: 07/29/2024 ( Hospital Day 3 days ) Attending:Krystal Parker MD ID: Korey Montoya is a 74 y.o. male w/ PMH of hypertension, HLD, and BPH on Hospital Day3 for chief concern of chest pain after being found to have ST elevations on EKG. Patient transferred via air ambulance to [facility] on 07/29 for LHC and LOW [...] 07/29/24 1621 PHART 7.48* 7.44 7.38 7.37 LIB3DRN 29* 29* 34* 36 PO2ART 71* 109* 141* 71* DQO2WYB 20.6 19.4* 19.5* 20.4 VBG (Venous Blood Gas) Recent Labs 07/29/24 1401 PHVEN 7.30* PO2VEN 39 UHP3AKL 20.1* Mixed Venous Sat No results for input(s): I1BPRB8 in the last 168 hours. PA Catheter [...] 07/29/24 1621 PHART 7.48* 7.44 7.38 7.37 TFJ6LTU 29* 29* 34* 36 PO2ART 71* 109* 141* 71* XCI5FQE 20.6 19.4* 19.5* 20.4 VBG (Venous Blood Gas) Recent Labs 07/29/24 1401 PHVEN 7.30* PO2VEN 39 ARC4QZK 20.1* Mixed Venous Sat No results for input(s): A1CIWC8 in the last 168 hours. Microbiology: Microbiology Results (Last 30 days) Procedure Component Value Units Date/Time Blood culture [[id number]] Collected: 07/29/24 1608 Lab Status: Preliminary result Specimen: Blood, Venous Updated: 07/31/24 170 Blood Culture No growth at 48 hours Blood culture [[id number]] Collected: 07/29/24 1608 Lab Status: Preliminary result Specimen: Blood, Venous Updated: 07/31/24 1701 Blood Culture No growth at 48 hours Imaging: Results for orders placed or performed during the hospital encounter of 07/29/24 XR Chest One View (Exam End: 07/29/2024 2:30 PM) Result Value WORKSTATION ID [id number] Impression 1. No pulmonary edema. 2. No pleural effusion. 3. No pneumothorax. Thank you for letting us participate in the care of this patient. If you are a health care provider and have any questions regarding this report, please contact the number below. For patients who have questions please contact the health daytime caregiver that requested your imaging first. ( [...] Compared to the overnight study by the director summer sessions fellow the impella position is stable. The [...] EKG. Patient transferred via air ambulance to [facility] on 07/29 for LHC and LOW [...] Susannah Ornelas MD Internal Medicine, PGY-1 Cardiology, [facility] 08/01/24 7:13 AM CARDIOLOGY STAFF [...] with him; questions answered. Krystal Parker MD, [facility], [facility] Staff Senior Electrical Designer presser all around * Krystal Parker MD - 07/31/2024 1:06 [...] EKG. Patient transferred via air ambulance to [facility] on 07/29 for LHC and LOW to LAD for 100% occlusion. TTE showed apical akinesis and inferior hypokinesis with EF 20%. RHC showed elevated filling pressures. Impella placed and P-level 6 at time of transfer to [facility]. CI initially 1.97, improved to 2.2 After impella. Received about 3 L of fluid during procedural course. Patient initially required norepinephrine 30, epinephrine 10, and vasopressin 0.04 for hemodynamic support, which was weaned upon arrival to [facility] to norepinephrine 20and levo 0.04 [...] PCP: Alexia Mtz APRN PCP phone number: [phone] Date of Admission: 07/29/2024 ( Hospital Day 2 days ) Attending:Krystal Parker MD ID: Korey Montoya is a 74 y.o. male w/ PMH of hypertension, HLD, and BPH on Hospital Day2 for chief concern of chest pain after being found to have ST elevations on EKG. Patient transferred via air ambulance to [facility] on 07/29 for LHC and LOW [...] 0057 07/29/24 1621 PHART 7.44 7.38 7.37 QZQ9WQE 29* 34* 36 PO2ART 109* 141* 71* JNG1IHI 19.4* 19.5* 20.4 VBG (Venous Blood Gas) Recent Labs 07/29/24 1401 PHVEN 7.30* PO2VEN 39 TSE6IME 20.1* Mixed Venous Sat No results for input(s): P6QPNL7 in the last 168 hours. PA Catheter [...] 0057 07/29/24 1621 PHART 7.44 7.38 7.37 HHV2VRZ 29* 34* 36 PO2ART 109* 141* 71* ETJ2CWQ 19.4* 19.5* 20.4 VBG (Venous Blood Gas) Recent Labs 07/29/24 1401 PHVEN 7.30* PO2VEN 39 NBU4GTD 20.1* Mixed Venous Sat No results for input(s): V3UVQZ7 in the last 168 hours. Microbiology: Microbiology Results (Last 30 days) Procedure Component Value Units Date/Time Blood culture [[id number]] Collected: 07/29/241607 Lab Status: Preliminary result Specimen: Blood, Venous Updated: 07/30/241700 Blood Culture No Growth at 18-24 hrs. Blood culture [[id number]] Collected: 07/29/241607 Lab Status: Preliminary result Specimen: Blood, Venous Updated: 07/30/241700 Blood Culture No Growth at 18-24 hrs. Imaging: Results for orders placed or performed during the hospital encounter of 07/29/24 XR Chest One View (Exam End: 07/29/2024 2:30 PM) Result Value WORKSTATION ID [id number] Impression 1. No pulmonary edema. 2. No pleural effusion. 3. No pneumothorax. Thank you for letting us participate in the care of this patient. If you are a health care provider and have any questions regarding this report, please contact the number below. For patients who have questions please contact the health daytime caregiver that requested your imaging first. ( [...] Compared to the overnight study by the director summer sessions fellow the impella position is stable. The [...] EKG. Patient transferred via air ambulance to [facility] on 07/29 for LHC and LOW [...] work to optimize volume status while continuing qkmcxzf-jjvfmg-tijglqaont therapies at this time. Obtain comprehensive TTE. [...] EKG. Patient transferred via air ambulance to [facility] on 07/29 for LHC and LOW to LAD for 100% occlusion. TTE showed apical akinesis and inferior hypokinesis with EF 20%. RHC showed elevated filling pressures. Impella placed and P-level 6 at time of transfer to [facility]. CI initially 1.97, improved to 2.2 After impella. Received about 3 L of fluid during procedural course. Patient initially required norepinephrine 30, epinephrine 10, and vasopressin 0.04 for hemodynamic support, which was weaned upon arrival to [facility] to norepinephrine 20and levo 0.04 [...] PCP: Yoel Artis APRN PCP phone number: [phone] Date of Admission: 07/29/2024 ( Hospital Day 1 day ) Attending:Jay Silverio MD ID: Korey Montoya is a 74 y.o. male w/ PMH of hypertension, HLD, and BPH on Hospital Day1 for chief concern of chest pain after being found to have ST elevations on EKG. Patient transferred via air ambulance to [facility] on 07/29 for LHC and LOW to LAD for 100% occlusion. 24 Hour Events/Subjective: Yesterday: - Admitted to the [facility] - After his LHC, he demonstrated [...] 0057 07/29/24 1621 PHART 7.44 7.38 7.37 BIF1ARU 29* 34* 36 PO2ART 109* 141* 71* RKC8LTG 19.4* 19.5* 20.4 VBG (Venous Blood Gas) Recent Labs 07/29/24 1401 PHVEN 7.30* PO2VEN 39 HTH7VLL 20.1* Lactate ( Last 12 hours) 1.3 >> 1.2 Mixed Venous Sat No results for input(s): X8KOPB4 in the last 168 hours. PA Catheter [...] 0057 07/29/24 1621 PHART 7.44 7.38 7.37 VNQ3HKN 29* 34* 36 PO2ART 109* 141* 71* MPN9FKC 19.4* 19.5* 20.4 VBG (Venous Blood Gas) Recent Labs 07/29/24 1401 PHVEN 7.30* PO2VEN 39 TGG4FRQ 20.1* Mixed Venous Sat No results for input(s): L9CXLW6 in the last 168 hours. Microbiology: Microbiology Results (Last 30 days) Procedure Component Value Units Date/Time Blood culture [[id number]] Collected: 07/29/24 1608 Lab Status: In process Specimen: Blood, Venous Updated: 07/29/24 162 Blood culture [[id number]] Collected: 07/29/24 1608 Lab Status: In process Specimen: Blood, Venous Updated: 07/29/24 1615 Imaging: Results for orders placed or performed during the hospital encounter of 07/29/24 XR Chest One View (Exam End: 07/29/2024 2:30 PM) Result Value WORKSTATION ID [id number] Impression 1. No pulmonary edema. 2. No pleural effusion. 3. No pneumothorax. Thank you for letting us participate in the care of this patient. If you are a health care provider and have any questions regarding this report, please contact the number below. For patients who have questions please contact the health daytime caregiver that requested your imaging first. Medications [...] EKG. Patient transferred via air ambulance to [facility] on 07/29 for LHC and LOW [...] EKG. Patient transferred via air ambulance to [facility] on 07/29 for LHC and LOW [...] EKG. Was transferred via air ambulance to [facility] for further management and [facility] demo nstrated 100% occlusion. No significant RCA, LMCA, or LCX disease. LOW placed in LAD with some residual distal disease meriting placement of overlapping distal stent. TTE showed apical akinesis and inferior hypokinesis with EF 20%. RHC showed elevated filling pressures. Impella placed and P-level 6 at time of transfer to [facility]. CI initially 1.97, improved to 2.2 After impella. Received about 3 L of fluid during procedural course. Patient initially required norepinephrine, epinephrine, and vasopressin for hemodynamic support, which was weaned upon arrival to [facility] to norepinephrine 20 and levo [...] performed by Brandan Mcgovern MD [facility] ENDOSCOPY Significant Family History: Family History [...] mouth. Past Week nitroGLYcerin (NITROLINGUAL) 400 mcg/spray [place], Non-Aerosol 1 spray to anus for proctalgia [...] 3.5 guiding catheter and a 3.5 Fr [place] [address] 20 Mhz using Manual pullback. Imaging [...] atmospheres. A premounted 3.00 x 22 mm [place] (LOW) was deployed with a maximum inflation [...] atmospheres. A premounted 3.00 x 08 mm [place] (LOW) was deployed with a maximum inflation [...] limited study performed by a fellow director summer sessions to evaluate for cardiogenic shock with impella [...] Compared to the overnight study by the director summer sessions fellow the impella position is stable. The [...] EKG. Patient transferred via air ambulance to [facility] on 07/29 for LHC and LOW [...] PCP: Yoel Artis APRN PCP phone number: [phone] Date of Admission: 07/29/2024 ( Hospital Day 0 days ) Attending:Jay Silverio MD ID: Korey Montoya is a 74 y.o. male w/ PMH of hypertension, HLD, and BPH who presents for chief concern of chest pain after being found to have ST elevations on EKG. Patient transferred via air ambulance to [facility] on 07/29 for LHC and LOW to LAD for 100% occlusion. HPI: Korey Montoya is a 74 y.o. male w/ PMH of hypertension, HLD, and BPH who presents for chief concern of chest pain after being found to have ST elevations on EKG. Patient transferred via air ambulance to [facility] on 07/29 for LHC and LOW [...] EKG. Was transferred via air ambulance to [facility] for further management and LHC demonstrated [...] performed by Brandan Mcgovern MD [facility] ENDOSCOPY Family History Family History Problem [...] Blood Gas) No results for input(s): PHART, PWM1YLR, PO2ART, NHP8XAF, LACTATEVEN, GYH1IGW, PFRATIOART2 in the last 168 hours. VBG (Venous Blood Gas) Recent Labs 07/29/24 1401 PHVEN 7.30* PO2VEN 39 KKX9JUH 20.1* Mixed Venous Sat No results for input(s): D3PPUG0 in the last 168 hours. PA Catheter [...] Blood Gas) No results for input(s): PHART, OOB7IEE, PO2ART, ZPD3OJC, LACTATEVEN, DDS5VAY, PFRATIOART2 in the last 168 hours. VBG (Venous Blood Gas) Recent Labs 07/29/24 1401 PHVEN 7.30* PO2VEN 39 VEM3EIG 20.1* Mixed Venous Sat No results for input(s): M4GMUR4 in the last 168 hours. Microbiology: Microbiology [...] EKG. Patient transferred via air ambulance to [facility] on 07/29 for [facility]. Found to have 100% occlusion of LAD for which he underwent LOW to LAD.Otherwise no other significant vessel disease. Fahad is currently hemodynamically tenuous but improving upon admission to [facility], requiring hemodynamic support with norepinephrine and vasopressin at time of admission along with mechanical support with Impella device. Reassuringly, he demonstrates decreasing pressor requirements since admission to [facility], with epinephrine completely weaned. He [...] Bernardo Amos MD Internal Medicine, PGY-3 Cardiology, [facility] 07/29/24 3:14 PM Cardiology Attending [...] of Cardiovascular Medicine [facility] At[employer]heric [employer] Professorpiccolo mechanic [employer] [facility] This patient meets or has met [...] to the planned procedure. Hand Hygiene: The tool coordinator did perform hand hygiene prior to [...] ease. Good wave form. Ivan Hernandez MD Color Separation Photographer Associated attestation - Rolando Yeh MD - [...] Fahad was quite active prior to his [place]. 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 Given parameters for home exercise. He follows a heart healthy diet and is not overweight. His lipids are wnl. Participation in an outpatient cardiac rehabilitation program at [facility] was discussed. Patient agrees to [...] No Patient is insured through: Primary Insurance: [facility] MANAGED MEDICARE Payor: [facility] MEDICARE / Plan: AARP RPPO [...] of Discharge: 08/04/2024 Gaby Wong RN, CM Pager-[phone] * Initial Assessments - Char Meza, OT - 08/03/2024 10:00 AM EST Occupational Therapy Evaluation Patient profile: Korey Montoya is a 74 y.o. male admitted on 07/29/2024 w/ PMH of hypertension, HLD, and BPH who presents for chief concern of chest pain after being found to have ST elevations onEKG. Patient transferred via air ambulance to [facility] on 07/29 for LHC and LOW to LAD for 100% occlusion. Past Medical History: Diagnosis Date ADHD HLD (hyperlipidemia) HTN (hypertension) Tremor Past Surgical History: Procedure Laterality Date HAND SURGERY PRO COLONOSCOPY, REMV LESN, SNARE N/A 08/30/2023 COLONOSCOPY, POLYPECTOMY, REMOVAL LESION BY SNARE (WRVU 4.57) performed by Brandan Mcgovern MD [facility] ENDOSCOPY Social History: Patient lives with his . Home Setup: 2 NAOMI to a 1 level home. DME: none Baseline ADL/Mobility: Independent with ADLs and IADLs. Enjoys walking. able assist as needed. Precautions/Special Considerations: Full code. Risk for falls. Subjective: I have access to an [employer] weight gym. (Educated to wait for MD [...] evaluation only Total Minutes, Occupational Therapy: 14 ([id number] (evaluation)) 2017 OT Evaluation Code Rationale: Diagnosis [...] and measurable assessment of functional outcome. Pager: [phone] Char Meza OT 08/03/2024 Occupational Therapy Rehabilitation [...] (Interventions Implemented as Appropriate) Flowsheets (Taken 08/01/2024 6451) Outcome Summary: A+O, no pain. NSR. MAP [...] Procedure Note: Patient Name: Korey Montoya : [id number] MR#: [id number] Case Date: 07/31/2024 Flake Drier: Surgeons and Role: * Maldonado Luis MD - Primary * Quinten Charles PA - Physician Machine Setter Supervisor Preoperative diagnosis: shock, impella Postoperative diagnosis: * same * Procedure(s) performed: Impella removal form right LIME VAT TENDER Access: Right LIME VAT TENDER A time-out was conducted prior to the [...] 180 days) Any patient receiving care in [place] must abide by [place] law. The hierarchy [...] In the past 12 months has the [employer] gas, oil, or water [employer] threatened to shut off services in your [...] Home Address confirmed as: Mailing Address: [facility] [address] [address] Physical Address: [address] [place], [place] Social & Family Supports: All names [...] points: Addiction likely Health/Prescription Coverage: Primary Insurance: [employer] MANAGED MEDICARE Payor: [employer] MEDICARE / Plan: [facility]NAG[facility] MEDICARE COMPLETE / Product Type: *No Product type* / Secondary Insurance: N/A ; Prescription Coverage: Yes Preferred Pharmacy: [address] [address] [place] Status: Patient is a : No Primary Care Provider confirmed: Alexia Mtz, CONTESTANT COORDINATOR [phone] Patient/Caregiver Goals of Treatment: return home Potential [...] 07/29/2024 6:25 PM EST 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 CXR and EKG [...] Procedure Note: Patient Name: Korey Montoya : [id number] MR#: [id number] Case Date: 07/29/2024 Flake Drier: Surgeons and Role: * Vahe Marvin MD - Primary * Susannah Watts PA - Physician Machine Setter Supervisor Preoperative diagnosis: STEMI Postoperative diagnosis: * STEMI, LAD Artery * * Cardiogenic Shock * Procedure(s) performed: [facility] Coronary angiogram Stent insertion coronary IVUS coronary Venous line insert C [place] Catheter Vascular closure device Ventricular assist [...] x 22 mm to 14 deonna JEISON Ocean with LIZ 3 flow. Residual distal disease at distal stent, overlapping distal stent was inserted with 3.0 x 8 mm JEISON Ocean. Systolic's in the 80's sustained. Patient re [...] 9:30 AM EST Appointment [place] [address] Mushtaq Murphy APRN 10/31/2024 11:00 AM EST Office Visit Cardiology at [address] [address] Mushtaq Murphy, FREDRICK Scheduled Orders Name Type [...] 0.10 x10(3)/mc L 08/04/2024 6:39 AM EST [facility] Immature Gran % 0.3 % 6:39 AM [facility] Immature Gran Absolute <0.04 0.00 - 0.04 x10(3)/mc L 08/04/2024 6:39 AM [facility] Blood VENOUS BLOOD SPECIMEN / Unknown Venipuncture / Unknown 08/04/2024 6:08 AM EST 08/04/2024 6:19 AM EST Bridgette Stauffer MD HEMATOLOGY ORDERABLE S Performing Organization Address City/[facility]/ZIP Co de Phone Number [facility] [place] [address] * Magnesium (08/04/2024 6:08 AM EST) Magnesium 0.85 0.69 - 1.07 mMol/L 08/04/2024 7:07 AM [facility] Blood VENOUS BLOOD SPECIMEN / Unknown Venipuncture / Unknown 08/04/2024 6:08 AM EST 08/04/2024 6:19 AM EST Bridgette Stauffer MD CHEMISTRY ORDERABLES [facility] [place] [place] [address] * Basic Metabolic Panel (08/04/2024 6:08 AM [...] ORDERABLES [facility] [place] [address] * (ABNORMAL) CBC (with Diff) (08/03/2024 5:16 [...] S [facility] [place] [address] * Magnesium (08/03/2024 5:16 AM EST) Magnesium 0.89 0.69 - 1.07 mMol/L 08/03/2024 5:56 AM [facility] Blood VENOUS BLOOD SPECIMEN / Unknown Venipuncture / Unknown 08/03/2024 5:16 AM EST 08/03/2024 5:23 AM EST Bridgette Stauffer MD CHEMISTRY ORDERABLES [facility] [place] [place] [address] * (ABNORMAL) Basic Metabolic Panel (08/03/2024 5:16 [...] Organization Address [facility]/ZIP Co de Phone Number [facility] [place] [address] * POC, GLUCOSE (08/02/2024 7:47 AM EST) [facility] Glucometer, POC 89 65 - 199 mg/dL 08/02/2024 7:47 AM EST [facility] Comment:Supplemental ranges: <140 mg/dL before meals <180 mg/dL all other times of the day. Blood CAPILLARY BLOOD / Unknown 08/02/2024 7:47 AM EST 08/02/2024 7:47 AM EST Krystal Parker MD POINT OF CARE TEST O RDERABLES Performing Organization Address [facility] Co de Phone Number [facility] [place] [place] [address] * (ABNORMAL) CBC (with Diff) (08/02/2024 4:20 AM EST) White Blood Cell 8.51 4.00 - 9.50 x10(3)/mc L 08/02/2024 4:50 AM EST [facility] Red Blood Cell 4.41(L) 4.58 - 5.54 x10(6)/mc L 08/02/2024 4:50 AM EST [facility] Hemoglobin 12.2(L) 13.7 - 16.5 g/dL 08/02/2024 4:50 AM EST [facility] Hematocrit 35.8(L) 40.5 - 48.5 % 08/02/2024 4:50 AM EST [facility] 0.90 x10(3)/mc L 08/02/2024 4:50 AM EST [facility] Eos % 1.4 % 08/02/2024 4:50 AM EST [facility] Eos Absolute 0.12 [...] S [facility] [place] [address] * Magnesium (08/02/2024 4:20 AM EST) Magnesium 0.79 0.69 - 1.07 mMol/L 08/02/2024 5:06 AM EST [facility] Blood VENOUS BLOOD SPECIMEN / Unknown Venipuncture / Unknown 08/02/2024 4:20 AM EST 08/02/2024 4:37 AM EST Bridgette Stauffer MD CHEMISTRY ORDERABLES [facility] [place] [place] [address] * (ABNORMAL) Basic Metabolic Panel (08/02/2024 4:20 [...] Organization Address [facility] Co de Phone Number [facility] [place] [address] * Potassium (08/01/2024 8:39 PM EST) Potassium 4.0 3.5 - 5.0 mMol/L 08/01/2024 9:21 PM EST [facility] Blood VENOUS BLOOD SPECIMEN / Unknown Venipuncture / Unknown 08/01/2024 8:39 PM EST 08/01/2024 8:51 PM EST Jay Silverio MD CHEMISTRY ORDERABL ES Performing Organization Address [facility] Number [facility] [place] [address] * POC, GLUCOSE (08/01/2024 8:35 PM EST) [...] Organization Address [facility] Co de Phone Number [facility] [place] [address] * POC, GLUCOSE (08/01/2024 4:55 PM EST) Glucometer, POC 99 65 - 199 mg/dL 08/01/2024 4:56 PM EST [facility] Comment:Supplemental ranges: <140 mg/dL before meals <180 mg/dL all other times of the day. Blood CAPILLARY BLOOD / Unknown 08/01/2024 4:55 PM EST 08/01/2024 4:56 PM EST Krystal Parker MD POINT OF CARE TEST O RDERABLES Performing Organization Address City/[facility]/ZIP Co de Phone Number [facility] [place] [address] * POC, GLUCOSE (08/01/2024 12:42 PM EST) [...] JOSH Performing Organization Address [facility] Co de Phone Number [facility] [place] [address] * (ABNORMAL) Cooximetry, POC (08/01/2024 10:45 AM [...] Organization Address [facility] Co de Phone Number [facility] [place] [address] * Potassium (08/01/2024 8:20 AM EST) Potassium 4.0 3.5 - 5.0 mMol/L 08/01/2024 10:17 AM EST [facility] Blood ARTERIAL BLOOD / Unknown Venipuncture / Unknown 08/01/2024 8:20 AM EST 08/01/2024 8:30 AM EST Jay Silverio MD CHEMISTRY ORDERABL ES Performing Organization Address [facility] Co de Phone Number [facility] [place] [place] [address] * POC, GLUCOSE (08/01/2024 7:44 AM EST) [facility] Glucometer, POC 86 65 - 199 mg/dL 08/01/2024 7:44 AM EST [facility] Comment:Supplemental ranges: <140 mg/dL before meals <180 mg/dL all other times of the day. Blood CAPILLARY BLOOD / Unknown 08/01/2024 7:44 AM EST 08/01/2024 7:44 AM EST Krystal Parker MD POINT OF CARE TEST O RDKAY Performing Organization Address [facility] Co de Phone Number [facility] [place] [address] * (ABNORMAL) CBC (with Diff) (08/01/2024 4:18 [...] S [facility] [place] [address] * Magnesium (08/01/2024 4:18 AM EST) Magnesium 0.74 0.69 - 1.07 mMol/L 08/01/2024 5:00 AM [facility] Blood VENOUS BLOOD SPECIMEN / Unknown Venipuncture / Unknown 08/01/2024 4:18 AM EST 08/01/2024 4:29 AM EST Bridgette Stauffer MD CHEMISTRY ORDERABLES [facility] [place] [address] * (ABNORMAL) Basic Metabolic Panel (08/01/2024 4:18 [...] Organization Address [facility] Co de Phone Number [facility] [place] [address] * POC, GLUCOSE (07/31/2024 8:41 PM EST) [facility] Signature Glucometer, POC 73 65 [...] Organization Address [facility] de Phone Number [facility] [place] [address] * CARDIAC CATHETERIZATION (07/31/2024 5:53 PM EST) Anatomical Region Laterality Modality Other Narrative 08/01/2024 12:37 PM EST ?[facility] ? Cardiac Catheterization/Intervention Report ? Patient Name: Korey Montoya Kyrie. ? Procedure Date: 07/31/2024 ? A #: [id number] ? Primary Physician: Janelle, Maldonado T ? Case #: [id number] ? File Name: [id number] ? Catheterization Order Number: [id number] ? [facility] ? Final Report [place], [place] ? Patient Name: ? Korey P. Montoya ?ID#: ?[id number] ? : ?1950 ? Procedure Date: ? July 31, 2024 ?Case #: ? [id number] ? Room: ? 1 ? Case Physician: [...] ? Comments: ?Impella removed from the right LIME VAT TENDER with deployment of Perclose and ?Angioseal. ??Good [...] Maldonado Luis MD - 08/01/2024 [facility] Cardiac Catheterization/Intervention Report Patient Name: Korey MontoyaToby Procedure Date: 07/31/2024 A #: [id number] Primary Physician: Maldonado Luis Case #: [id number] File Name: [id number] Catheterization Order Number: [id number] [facility] FinalReport [place], [place] Patient Name: Korey Montoya ID#:[id number] :1950 Procedure Date: July 31, 2024 Case [...] was designated as ASA Class IV. The [facility] clinical frailtyscale is 4: Vulnerable. [...] procedures. Comments: Impella removed from the right LIME VAT TENDER with deployment of Perclose and Angioseal. Good [...] POC, GLUCOSE (07/31/2024 11:04 AM EST) [facility] Glucometer, POC 82 65 - 199 mg/dL 07/31/2024 11:04 AM EST [facility] Comment:Supplemental ranges: <140 mg/dL before meals <180 mg/dL all other times of the day. Blood CAPILLARY BLOOD / Unknown 07/31/2024 11:04 AM EST 07/31/2024 11:04 AM EST Krystal Parker MD POINT OF CARE TEST O RDERABLES [facility] [place] [address] * (ABNORMAL) Blood Gas, Arterial POC (07/31/2024 8:29 AM EST) pH, Arterial 7.48(H) 7.35 - 7.45 07/31/2024 8:30 AM EST [facility] PCO2, Arterial 29(L) 35 - 45 mmHg 07/31/2024 8:30 AM EST [facility] PO2, Arterial 71(L) 85 - 104 mmHg 07/31/2024 8:30 AM EST [facility] Bicarbonate, Arterial 20.6 20.0 - 26.0 mmol/L 07/31/2024 8:30 AM EST [facility] Base Excess, Arterial -3.0 -3.0 - 3.0 mmol/L 07/31/2024 8:30 AM EST [facility] Hemoglobin, Arterial 12.3(L) [...] CARE TEST O RDERABLES Performing Organization Address City/[facility]/ZIP Co de Phone Number [facility] [place] [place] [address] * POC, GLUCOSE (07/31/2024 7:47 AM EST) [facility] Glucometer, POC 82 65 - 199 mg/dL 07/31/2024 7:53 AM [facility] Comment:Supplemental ranges: <140 mg/dL before meals <180 mg/dL all other times of the day. Blood CAPILLARY BLOOD / Unknown 07/31/2024 7:47 AM EST 07/31/2024 7:53 AM EST Krystal Parker MD POINT OF CARE TEST O PEYTONERASHAY Performing Organization Address [facility] Co de Phone Number [facility] [place] [place] [address] * (ABNORMAL) CBC (with Diff) (07/31/2024 1:08 AM EST) [facility] White Blood Cell 10.25(H) 4.00 - [...] % 0.3 % 07/31/2024 1:28 AM EST [facility] Baso Absolute <0.04 0.00 - 0.10 x10(3)/mc L 07/31/2024 1:28 AM [facility] Immature Gran % 0.2 % 1:28 AM [facility] Immature Gran Absolute <0.04 0.00 - 0.04 x10(3)/mc L 07/31/2024 1:28 AM EST [facility] Blood VENOUS BLOOD SPECIMEN / Unknown Venipuncture / Unknown 07/31/2024 1:08 AM EST 07/31/2024 1:18 AM EST Bridgette Stauffer MD HEMATOLOGY ORDERABLE S Performing Organization Address City/[facility]/ZIP Co de Phone Number [facility] [place] [address] * Magnesium (07/31/2024 1:08 AM EST) Magnesium 0.89 0.69 - 1.07 mMol/L 07/31/2024 1:46 AM [facility] Blood VENOUS BLOOD SPECIMEN / Unknown Venipuncture / Unknown 07/31/2024 1:08 AM EST 07/31/2024 1:18 AM EST Bridgette Stauffer MD CHEMISTRY ORDERABLES [facility] [place] [address] * (ABNORMAL) Basic Metabolic Panel (07/31/2024 1:08 AM EST) Glucose 97 65 - 199 mg/dL 07/31/2024 1:46 AM [facility] Comment:Glucose Concentratio n >=200 mg/dL plus symptoms is consistent with Diabetes Mellitus. Blood Urea Nitrogen 11 10 - 20 mg/dL 07/31/2024 1:46 AM EST [facility] Creatinine 0.96 0.80 - 1.50 mg/dL 07/31/2024 1:46 AM EST [facility] Sodium 140 135 - 145 mMol/L 07/31/2024 1:46 AM EST [facility] Potassium 4.1 3.5 - 5.0 mMol/L 07/31/2024 1:46 AM [facility] Chloride 110(H) 98 - 107 mMol/L 07/31/2024 1:46 AM EST [facility] Carbon Dioxide 24 22 - 31 mMol/L 07/31/2024 1:46 AM EST [facility] Anion Gap 6 [...] ORDERABLES [facility] [place] [address] * (ABNORMAL) Hepatic Function Panel (07/31/2024 1:08 [...] AM EST Krystal Parker MD CHEMISTRY ORDERABLES [facility] [place] [address] * POC, GLUCOSE (07/30/2024 8:03 PM EST) [...] RDERABLES [facility] [place] [address] * Potassium (07/30/2024 8:03 PM EST) Potassium 3.8 3.5 - 5.0 mMol/L 07/30/2024 9:13 PM EST [facility] Blood VENOUS BLOOD SPECIMEN / Unknown Venipuncture / Unknown 07/30/2024 8:03 PM EST 07/30/2024 8:22 PM EST Jay Silverio MD CHEMISTRY ORDERABL ES [facility] [place] [address] * POC, GLUCOSE (07/30/2024 6:23 PM EST) Glucometer, POC 93 65 - 199 mg/dL 07/30/2024 6:24 PM EST [facility] Comment:Supplemental ranges: <140 mg/dL before meals <180 mg/dL all other times of the day. Blood CAPILLARY BLOOD / Unknown 07/30/2024 6:23 PM EST 07/30/2024 6:24 PM EST Krystal Parker MD POINT OF CARE TEST O RDERABLES Performing Organization Address City/[facility]/ZIP Co de Phone Number [facility] [place] [address] * POC, GLUCOSE (07/30/2024 5:08 PM EST) [...] RDERABLES [facility] [place] [address] * (ABNORMAL) Phosphorus (07/30/2024 3:08 PM EST) [facility] Phosphorus 2.1(L) 2.5 - 4.5 mg/dL 07/30/2024 3:58 PM EST [facility] Blood VENOUS BLOOD SPECIMEN / Unknown Venipuncture / Unknown 07/30/2024 3:08 PM EST 07/30/2024 3:12 PM EST Jay Silverio MD CHEMISTRY ORDERABL ES Performing Organization Address City/[facility]/ZIP Co de Phone Number [facility] [place] [place] [address] * Magnesium (07/30/2024 3:08 PM EST) [facility] Magnesium 0.90 0.69 - 1.07 mMol/L 07/30/2024 3:58 PM EST [facility] Blood VENOUS BLOOD SPECIMEN / Unknown Venipuncture / Unknown 07/30/2024 3:08 PM EST 07/30/2024 3:12 PM EST Jay Silverio MD CHEMISTRY ORDERABL ES Performing Organization Address City/[facility]/ZIP Co de Phone Number [facility] [place] [address] * (ABNORMAL) Basic Metabolic Panel (07/30/2024 3:08 PM EST) [facility] Glucose 105 65 - 199 mg/dL 07/30/2024 4:17 PM EST [facility] Comment:Glucose Concentratio n >=200 mg/dL plus symptoms is consistent with Diabetes Mellitus. Blood Urea Nitrogen 13 10 - 20 mg/dL 07/30/2024 4:17 PM EST [facility] Creatinine 1.01 0.80 - 1.50 mg/dL 07/30/2024 4:17 PM EST [facility] Sodium 141 135 - 145 mMol/L 07/30/2024 4:17 PM EST [facility] Potassium 3.4(L) 3.5 - 5.0 mMol/L 07/30/2024 4:17 PM EST [facility] Chloride 109(H) 98 [...] EST Jay Silverio MD CHEMISTRY ORDERABL ES [facility] [place] [address] * ECHO LMTD W CONTRAST W LMTD SPEC DOPP COLOR DOPP (07/30/2024 11:42 AM EST) Anatomical Region Laterality Modality Cardiac Other 07/30/2024 10:2 2 AM EST Narrative 07/30/2024 12:[address] [address] ? Echocardiogram Report Name: KOREY MONTOYA ? Study Date: 07/30/2024 10:22 AMBP: 124/66 mmHg : 1950 ? Height: 168 cm ? Account: [id number] Age: 74 yrs ? Weight: 65 kg [...] Compared to the overnight study by the director summer sessions fellow the impella position is stable. 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 Procedure Limited - 46916. Image enhancement Definity was used for both [...] Note Kathleen Banda MD - 07/30/2024 [address] [place] [address] Echocardiogram Report Name: MONTOYAKOREY Study Date: 0:22 AMBP: 124/66 mmHg : 1950 Height: 168 cm Account: [id number] Age: 74 yrs Weight: 65 kg Gender: [...] Compared to the overnight study by the director summer sessions fellow the impella positionis stable. The global left ventricular systolic function has improvedpredominantly via recruitment outside the LAD territory which remains akinetic. Procedure Limited - 35885. Image enhancement Definity was used for both [...] * POC, GLUCOSE (07/30/2024 11:17 AM EST) [facility] Glucometer, POC 97 65 - 199 mg/dL 07/30/2024 11:17 AM [facility] Comment:Supplemental ranges: <140 mg/dL before meals <180 mg/dL all other times of the day. Blood CAPILLARY BLOOD / Unknown 07/30/2024 11:17 AM EST 07/30/2024 11:17 AM EST Jay Silverio MD POINT OF CARE TEST ORDERABLES [facility] [place] [address] * (ABNORMAL) Blood Gas, Arterial POC (07/30/2024 8:16 AM EST) [facility] Signature pH, Arterial 7.44 7.35 - [...] ORDERABLES [facility] [place] [address] * (ABNORMAL) Troponin - Single (07/30/2024 8:09 [...] can be found in the [facility] Test Catalog Troponin - [email or web address] Reference: Fourth Elizabeth Definition of Myocardial Infarction. Journal of the [place] College [employer] Cardiology 2018;72:8478-1372 Blood VENOUS BLOOD SPECIMEN / Unknown Venipuncture / Unknown 07/30/2024 8:09 AM EST 07/30/2024 8:26 AM EST Jay Silverio MD CHEMISTRY ORDERABL ES [facility] [place] [address] * POC, GLUCOSE (07/30/2024 7:40 AM EST) Glucometer, POC 111 65 - 199 mg/dL 07/30/2024 7:40 AM [facility] Comment:Supplemental ranges: <140 mg/dL before meals <180 mg/dL all other times of the day. Blood CAPILLARY BLOOD / Unknown 07/30/2024 7:40 AM EST 07/30/2024 7:40 AM EST Jay Silverio MD POINT OF CARE TEST ORDERABLES Performing Organization Address City/State/[facility] Co de Phone Number [facility] [place] [address] * (ABNORMAL) CBC (with Diff) (07/30/2024 2:11 [...] 0.04 x10(3)/mc L 07/30/2024 2:33 AM EST [facility] Blood VENOUS BLOOD SPECIMEN / Unknown Venipuncture / Unknown 07/30/2024 2:11 AM EST 07/30/2024 2:22 AM EST Bridgette Stauffer MD HEMATOLOGY ORDERABLE S Performing Organization Address [facility] Co de Phone Number [facility] [place] [address] * Magnesium (07/30/2024 2:11 AM EST) Magnesium 1.01 0.69 - 1.07 mMol/L 07/30/2024 2:51 AM [facility] Blood VENOUS BLOOD SPECIMEN / Unknown Venipuncture / Unknown 07/30/2024 2:11 AM EST 07/30/2024 2:22 AM EST Bridgette Stauffer MD CHEMISTRY ORDERABLES Performing Organization Address [facility] Co de Phone Number [facility] [place] [address] * (ABNORMAL) Basic Metabolic Panel (07/30/2024 2:11 AM EST) Glucose 190 65 - 199 mg/dL 07/30/2024 2:51 AM [facility] Comment:Glucose Concentratio n >=200 mg/dL plus symptoms is consistent with Diabetes Mellitus. Blood Urea Nitrogen 15 10 - 20 mg/dL 07/30/2024 2:51 AM EST [facility] Creatinine 0.88 0.80 - 1.50 mg/dL 07/30/2024 2:51 AM [facility] Sodium 135 135 - 145 mMol/L 07/30/2024 2:51 AM [facility] Potassium 4.9 3.5 - 5.0 mMol/L 07/30/2024 2:51 AM EST [facility] Chloride 105 98 - 107 mMol/L 07/30/2024 2:51 AM EST [facility] Carbon Dioxide 19(L) 22 - 31 mMol/L 07/30/2024 2:51 AM EST [facility] [...] ORDERABLES [facility] [place] [address] * (ABNORMAL) Cooximetry, POC (07/30/2024 1:00 AM EST) pO2, Coox 28 mmHg 07/30/2024 1:03 AM [facility] Hemoglobin, Coox 12.7(L) 13.7 - 16.5 g/dL 07/30/2024 1:03 AM [facility] Oxyhemoglobin, Coox 54.9 % 07/30/2024 1:03 AM [facility] Carboxyhemoglo bin, Coox 1.0 % 07/30/2024 1:03 AM [facility] Comment: Nonsmokers: 0.5-1.5% COHB ?? Smokers: Variable ??but usually less than 10% ?? Toxic: 20-30% COHB ?? Lethal: Greater than 60% COHB Methemoglobin, Coox 0.0 <=1.5 % 07/30/2024 1:03 AM [facility] Blood (Mixed Venous) 07/30/2024 1:00 AM EST 07/30/2024 1:03 AM EST Jay Silverio MD POINT OF CARE TEST ORDERABLES Performing Organization Address City/State/[facility] Co de Phone Number [facility] [place] [address] * (ABNORMAL) Blood Gas, Arterial POC (07/30/2024 [...] ORDERABLES [facility] [place] [address] * (ABNORMAL) Troponin - Single (07/29/2024 10:31 PM EST) Troponin-T, High Sensitivity >10,000(H ) <=22 ng/L 07/29/2024 11:03 PM EST [facility] [...] can be found in the [facility] Test Catalog Troponin - [email or web address].[email or web address]/catalogs/565/files/09705 Reference: Fourth Elizabeth Definition of Myocardial Infarction. Journal of the [place] [employer] 2018;72:7217-4061 Blood VENOUS BLOOD SPECIMEN / Unknown Venipuncture / Unknown 07/29/2024 10:31 PM EST 07/29/2024 10:36 PM EST Yrn Ward MD CHEMISTRY ORDERABL ES Performing Organization Address City/[facility]/ZIP Co de Phone Number [facility] [place] [address] * Potassium (07/29/2024 8:11 PM EST) Potassium 4.1 3.5 - 5.0 mMol/L 07/29/2024 8:52 PM EST [facility] Blood VENOUS BLOOD SPECIMEN / Unknown Venipuncture / Unknown 07/29/2024 8:11 PM EST 07/29/2024 8:16 PM EST Jay Silverio MD CHEMISTRY ORDERABL ES [facility] [place] [address] * (ABNORMAL) Troponin - Single (07/29/2024 8:11 PM EST) Pathologist [facility] Troponin-T, [...] can be found in the [facility] Test Catalog Troponin - https://[email or web address].org/catalogs/565/files/63743 Reference: Fourth Elizabeth Definition of Myocardial Infarction. Journal of the [place] [employer] 2018;72:1513-8775 Blood VENOUS BLOOD SPECIMEN / Unknown Venipuncture / Unknown 07/29/2024 8:11 PM EST 07/29/2024 8:16 PM EST Jay Silverio MD CHEMISTRY ORDERABL ES [facility] [place] [address] * (ABNORMAL) Phosphorus (07/29/2024 8:11 PM EST) Pathologist [facility] Phosphorus 2.1(L) 2.5 - 4.5 mg/dL 07/29/2024 8:52 PM EST [facility] Blood VENOUS BLOOD SPECIMEN / Unknown Venipuncture / Unknown 07/29/2024 8:11 PM EST 07/29/2024 8:16 PM EST Jay Silverio MD CHEMISTRY ORDERABL ES Performing Organization Address [facility] Co de Phone Number [facility] [place] [address] * POC, GLUCOSE (07/29/2024 8:09 PM EST) [...] Organization Address [facility] Co de Phone Number [facility] [place] [address] * ABORH RECHECK (07/29/2024 6:43 PM EST) ABORH Recheck AB POSITIVE 07/29/2024 10:13 PM EST [facility] Blood VENOUS BLOOD SPECIMEN / Unknown Venipuncture / Unknown 07/29/2024 6:43 PM EST 07/29/2024 7:15 PM EST Jay Silverio MD BLOOD BANK LAB ORD ERABLES Performing Organization Address City/[facility] Co de Phone Number [facility] [place] [address] * POC, GLUCOSE (07/29/2024 5:57 PM EST) [...] ORDERABLES [facility] [place] [address] * Type and screen ([facility] (07/29/2024 5:56 PM EST) [facility] ABORH Type AB POSITIVE 07/29/2024 9:44 PM EST [facility] PATIENT HISTORY Not Found 07/29/2024 9:44 PM EST [facility] Expires at [id number] on: 08/01/2024 07/29/2024 9:44 PM EST [facility] ANTIBODY SCREEN AUTOMATED Negative 07/29/2024 9:44 PM EST [facility] T&S only valid at [facility] 07/29/2024 9:44 PM EST [facility] Blood VENOUS BLOOD SPECIMEN / Unknown Venipuncture / Unknown 07/29/2024 5:56 PM EST 07/29/2024 6:07 PM EST Narrative [facility] - 07/29/2024 9:44 PM EST This Type and Screen result is only valid at the [facility] Jay Silverio MD BLOOD BANK LAB ORD ERABLES Performing Organization Address City/[facility]/ZIP Co de Phone Number [facility] [place] [address] * (ABNORMAL) Troponin - Single (07/29/2024 4:52 PM EST) [facility] Troponin-T, High Sensitivity >10,000(H ) <=22 [...] can be found in the [facility] Test Catalog Troponin - https://[email or web address].org/catalogs/565/files/96746 Reference: Fourth Elizabeth Definition of Myocardial Infarction. Journal of the [place] [employer] 2018;72:8153-0576 Blood VENOUS BLOOD SPECIMEN / Unknown Venipuncture / Unknown 07/29/2024 4:52 PM EST 07/29/2024 4:57 PM EST Jay Silverio MD CHEMISTRY ORDERABL ES [facility] [place] [address] * EKG 12 Lead (07/29/2024 4:21 PM EST) Ventricular rate 72 BPM MUSE SYSTEM Atrial Rate 72 BPM MUSE SYSTEM P-R Interval 168 ms MUSE SYSTEM QRS Duration 82 ms MUSE SYSTEM Q-T Interval 392 ms MUSE SYSTEM QTC Calculated (Bezet) 429 ms MUSE SYSTEM Calculated P [place] 71 degrees MUSE SYSTEM Calculated R [place] 77 degrees MUSE SYSTEM Calculated T [place] 28 degrees MUSE SYSTEM INTERPRETATION Sinus [...] ORDERABLES [facility] [place] [address] * POC, GLUCOSE (07/29/2024 4:19 PM EST) Glucometer, POC 185 65 - 199 mg/dL 07/29/2024 4:19 PM [facility] Comment:Supplemental ranges: <140 mg/dL before meals <180 mg/dL all other times of the day. Blood CAPILLARY BLOOD / Unknown 07/29/2024 4:19 PM EST 07/29/2024 4:19 PM EST Jay Silverio MD POINT OF CARE TEST ORDERABLES [facility] [place] [address] * Blood culture (07/29/2024 4:08 PM EST) Blood Culture No growth at 120 hours 08/03/2024 5:01 PM EST [facility] Blood VENOUS BLOOD SPECIMEN / Unknown Venipuncture / Unknown 07/29/2024 4:08 PM EST 07/29/2024 4:15 PM EST Jay Silverio MD MICROBIOLOGY - BLO OD ORDERABLES Performing Organization Address [facility] Co de Phone Number [facility] [place] [address] * Blood culture (07/29/2024 4:08 PM EST) Blood Culture No growth at 120 hours 08/03/2024 5:01 PM EST [facility] Blood VENOUS BLOOD SPECIMEN / Unknown Venipuncture / Unknown 07/29/2024 4:08 PM EST 07/29/2024 4:26 PM EST Jay Silverio MD MICROBIOLOGY - BLO OD ORDERABLES Performing Organization Address [facility] de Phone Number [facility] [place] [address] * XR Chest One View (07/29/2024 2:30 PM EST) WORKSTATION ID [id number] DH RAD Anatomical Region Laterality Modality Chest [...] who have questions please contact the health daytime caregiver that requested your imaging first. ? [...] patients who have questions please contactthe health daytime caregiver that requested your imaging first. Vahe Marvin [...] S [facility] [place] [address] * (ABNORMAL) Prothrombin Time (07/29/2024 2:03 PM EST) [facility] Prothrombin Time 14.2(H) 9.4 - 12.5 [...] S [facility] [place] [address] * CRP, acute inflammation (07/29/2024 2:03 PM EST) Pathologist [facility] C-Reactive Protein <3.0 <=4.9 mg/L 07/29/2024 2:52 PM EST [facility] Blood VENOUS BLOOD SPECIMEN / Unknown Venipuncture / Unknown 07/29/2024 2:03 PM EST 07/29/2024 2:14 PM EST Vahe Marvin MD CHEMISTRY ORDERABLES [facility] [place] [address] * Lipid Panel (Reflex Direct LDL) (07/29/2024 [facility] - 07/29/2024 2:52 PM EST It [...] ACC/AHA Guidelines (most recently Rolf et al. [facility] 06/15/22): * For individuals with atherosclerotic cardiovascular [...] ORDERABLES [facility] [place] [address] * TSH [place] (07/29/2024 2:03 PM EST) Pathologist [facility] Thyroid Stimulating Hormone 0.70 0.27 - 4.20 mcIU/mL 07/29/2024 2:52 PM EST [facility] Blood VENOUS BLOOD SPECIMEN / Unknown Venipuncture / Unknown 07/29/2024 2:03 PM EST 07/29/2024 2:14 PM EST Vahe Marvin MD CHEMISTRY ORDERABLES Performing Organization Address City/[facility] Co de Phone Number [facility] [place] [address] * Hemoglobin A1c (07/29/2024 2:03 PM EST) [...] PM EST 07/29/2024 2:14 PM EST Narrative [facility] - 07/29/2024 2:41 PM EST Estimated average glucose (eAG) is calculated from the equation described in: Quinten ALVES, Rikki J, Reno R, et al. ??Translating the A1C assay into estimated average glucose values. ??Diabetes Care 2008:31(8):8774-9185. Additional resources are available on the ADA website (diabetes.org). Vahe Marvin MD CHEMISTRY ORDERABLES [facility] [place] [address] * (ABNORMAL) CBC (with Diff) (07/29/2024 2:03 [...] 0.04 x10(3)/mc L 07/29/2024 2:18 PM EST [facility] Blood VENOUS BLOOD SPECIMEN / Unknown Venipuncture / Unknown 07/29/2024 2:03 PM EST 07/29/2024 2:13 PM EST Vahe Marvin MD HEMATOLOGY ORDERABLE S [facility] [place] [address] * Phosphorus (07/29/2024 2:03 PM EST) Phosphorus 2.5 2.5 - 4.5 mg/dL 07/29/2024 2:52 PM EST [facility] Blood VENOUS BLOOD SPECIMEN / Unknown Venipuncture / Unknown 07/29/2024 2:03 PM EST 07/29/2024 2:14 PM EST Vahe Marvin MD CHEMISTRY ORDERABLES Performing Organization Address City/[facility]/ZIP Co de Phone Number [facility] [place] [address] * Magnesium (07/29/2024 2:03 PM EST) Magnesium 0.70 0.69 - 1.07 mMol/L 07/29/2024 2:52 PM EST [facility] Blood VENOUS BLOOD SPECIMEN / Unknown Venipuncture / Unknown 07/29/2024 2:03 PM EST 07/29/2024 2:14 PM EST Vahe Marvin MD CHEMISTRY ORDERABLES [facility] [place] [address] * (ABNORMAL) Comprehensive metabolic panel (07/29/2024 2:03 [...] ORDERABLES [facility] [place] [address] * (ABNORMAL) Troponin - Single (07/29/2024 2:03 [...] can be found in the [facility] Test Catalog Troponin - https://[email or web address].org/catalogs/565/files/21000 Reference: Fourth Elizabeth Definition of Myocardial Infarction. Journal of the [place] College [employer]iology 2018;72:9716-3325 Blood VENOUS BLOOD SPECIMEN / Unknown Venipuncture / Unknown 07/29/2024 2:03 PM EST 07/29/2024 2:14 PM EST Vahe Marvin MD CHEMISTRY ORDERABLES [facility] [place] [address] * (ABNORMAL) Blood Gas, Venous POC (07/29/2024 [...] - 145 mmol/L 07/29/2024 2:02 PM EST [facility] Potassium, Venous 3.6 3.5 - 5.0 mmol/L 07/29/2024 2:02 PM EST [facility] Chloride, Venous 103 [...] CARE TEST O RDERABLES Performing Organization Address City/State/[facility] Co de Phone Number [facility] [place] [address] * CARDIAC CATHETERIZATION (07/29/2024 1:20 PM EST) Anatomical Region Laterality Modality Other Narrative 07/29/2024 2:02 PM EST ?[facility] ? Cardiac Catheterization/Intervention Report ? Patient Name: Korey Montoya Kyrie. ? Procedure Date: 07/29/2024 ? A #: [id number] ? Primary Physician: Vahe Marvin ? Case #: [id number] ? File Name: [id number] ? Catheterization Order Number: [id number] ? [facility] ? Final Report [place], [place] ? Patient Name: ? Korey P. Jan ?ID#: ?[id number] ? : ?1950 ? Procedure Date: ? July 29, 2024 ?Case #: ? [id number] ? Room: ? 5 ? Case Physician: [...] procedure was Emergent. The indication for ?the corn lab technician visit is ACS less than [...] 3.5 guiding catheter and a 3.5 Fr [place] [address] ??20 Mhz using ?Manual pullback. ??Imaging [...] A premounted 3.00 x 22 mm [place] Ocean (LOW) was deployed ? with a maximum [...] atmospheres. ??A premounted 3.00 x 08 mm [place] Ocean (LOW) ? was deployed with a maximum [...] dose administered prior to arrival in the corn lab technician. ?Recommended anti-platelet/anti-thrombotic regimen: ?Start aspirin 81 mg daily now and continue for 12 months then stop. ?Start clopidogrel 75 mg daily now and continue for indefinitely. ?These recommendations are made at the time of the intervention. Patient ?and provider preferences or a changing clinical situation may require ?modification of this regimen. Consult [facility] Interventional Cardiology for ?questions. ?The 1 [...] able ?to start weaning his inotropes/vasopressors. A [place] Colette catheter was ?placed demonstrating improvement in [...] ventricular assist device insertion, right heart ?catheterization, [place] (flow directed cath) insertion, access site ?angiography, vascular ultrasound, venous line / sheath insert and vascular ?closure device. ? Vahe Marvin M.D. ? Electronically Signed by: Vahe Marvin M.D. ? Report Finalized: 07/29/2024 ??13:55 ? Report Last Ammended: 09/20/2024 ??15:21 ? Procedure Note Vahe Marvin MD - 09/20/2024 [facility] Cardiac Catheterization/Intervention Report Patient Name: Korey Montoya Procedure Date: 07/29/2024 A #: [id number] Primary Physician: Vahe Marvin Case #: [id number] File Name: [id number] Catheterization Order Number: [id number] [facility] FinalReport [place], [place] Patient Name: Korey Montoya ID#:[id number] :1950 Procedure Date: July 29, 2024 Case [...] was designated as ASA Class IV. The [facility] clinical frailtyscale is 4: Vulnerable. Diagnostic Tests: Electrocardiography: EKG was assessed by ECG. EKG was Abnormal. EKG showed STDeviation >= 0.5 mm. Medications Prior to Procedure: Angiotensin II Receptor Elvis and Statin. Indications for Diagnostic Cath: The priority of the diagnostic procedure was Emergent. Theindication for the corn lab technician visit is ACS less than [...] 3.5 guiding catheter and a 3.[address] 20 Mhzusing Manual pullback. Imaging was [...] The lesion was predilated with a 2.00mm [id number] MM balloon with a maximum inflation pressure of 12atmospheres. A premounted 3.00 x 22 mm [place] (LOW) wasdeployed with a maximum inflation pressure [...] atmospheres. A premounted 3.00 x 08 mm [place](LOW) was deployed with a maximum inflation pressure [...] dose administered prior to arrival in the corn lab technician. Recommended anti-platelet/anti-thrombotic regimen: Start aspirin 81 mg daily now and continue for 12 months then stop. Start clopidogrel 75 mg daily now and continue for indefinitely. These recommendations are made at the time of the intervention.Patient and provider preferences or a changing clinical situation mayrequire modification of this regimen. Consult [facility] Interventional Cardiologyfor questions. The 1 year [...] wereable to start weaning his inotropes/vasopressors. A [place] Colette catheterwas placed demonstrating improvement in his [...] ventricular assist device insertion, right heart catheterization, [place] (flow directed cath) insertion, access site angiography, [...] RDERABLES [facility] [place] [address] * (ABNORMAL) BLOOD GAS, POC (07/29/2024 12:12 [...] POINT OF CARE TEST O RDERABLES [facility] [place] [address] documented in this encounter Visit Diagnoses Not [...] Routine documented in this encounter Care Teams Wool Fleece Sorter Relationship Specialty Start Date End Date Alexia Mtz, [address] [place] [address] PCP - General Family Medicine 07/30/24 documented as of this encounter
--- OUTSIDE RECORDS SUMMARY | 2024-10-15 10:02 | XMS_ITS | Encounter Summary ---
[place] [address] Care Team Providers Care Welding Operator Name Role Phone Yoel Artis Ute ALCALA Primary Care Provider [phone] Reason for Visit * Auth/Cert (Routine) Specialty Diagnoses / Procedures Referred By Theodore t Referred To Contact Diagnoses STEMI (ST elevation myocardial infarction) STEMI Procedures ER IPI Vahe Marvin MD [facility] [place] [address] [facility] Referral ID Status Reason Start Date Expiration Date Visits Re quested Visits Authorized [id number] 1 1 Encounter Details Date Type Department Care Team (Late st Contact Info) Description 07/29/2024 12:00 PM EST - 07/29/2024 12:54 PM EST [place] [address] Vahe Marvin MD [facility] [place] [address] CARDIAC CATHETERIZATION Social History Tobacco Use Types Packs/Day Years Used Date Smoking Tobacco: Former Cigarettes Smokeless Tobacco: Never Alcohol Use Standard Drinks/Week Comments Not Currently 0 (1 standard drink = 0.6 oz pur e alcohol) [facility] Utilities Answer Date Recorded In the [...] Korey Montoya Patient Age: 74 y.o. Language: Moroccan Race: White Ethnicity: Not nor Admit date: [...] [place] [facility] Laser Technician . Issues afterhours and on weekends [...] the next year. Access was via right DEPUTY CLERK OF COURT and this sitewas clean, dry and intact [...] for Chest pain. Replaces: nitroGLYcerin 400 mcg/spray [place], Non-Aerosol 0.4 mg Quantity: 90 tablet Refills: [...] Refills: 0 STOPPED Medications nitroGLYcerin 400 mcg/spray [place], Non-Aerosol Commonly known as: NITROLINGUAL Replaced by: [...] of one year. After this time, your medical record librarians teacher will determine if you need to [...] away. Stay on the phone. The emergency gantry crane operator will tell you what to do. [...] appointments: During 8am-5pm Tuesday through Tuesday call [phone] to speak with a nurse in the cardiology clinic All other times call [phone] and ask to speak to the staff assistant social organization professor. Follow up Appointments: PCP Alexia Mtz, RELISH BLENDER [phone]. Please call to establish a follow up appointment within 1-2 weeks of discharge. Cardiology. Referral to heart failure has been sent. General Instructions None Future Appointments and Orders Future Orders Complete By Expires Referral to Cardiac Rehab [[id number] Custom] As directed Process Instructions: If no progress note charted, please enter Clinical details in comments. Scheduling Instructions: Questions: My question or request is: STEMI, PCI- cardiac rehab at [facility] Referral to Cardiology [REF12 Custom] As directed [...] of one year. After this time, your medical record librarians teacher will determine if you need to [...] away. Stay on the phone. The emergency gantry crane operator will tell you what to do. [...] appointments: During 8am-5pm Tuesday through Tuesday call [phone] to speak with a nurse in the cardiology clinic All other times call [phone] and ask to speak to the staff assistant social organization professor. Follow up Appointments: PCP Alexia Mtz, RELISH BLENDER [phone]. Please call to establish a follow up [...] with 2 NAOMI. 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 He [...] Total time: 35 (tef) minutes Time IN/OUT: 8964-4419 ZAIDA DUBOSE PT Pager: [phone] Physical Therapy Inpatient Rehabilitation Department * Yrn Velazquez MD - 08/03/2024 10:38 AM EST CV HOSPITALIST 2 - [facility] DAILY PROGRESS NOTE Page [phone] to reach a provider 04/04 Admit Date: [...] Compared to the overnight study by the social organization professor fellow the impella position is stable. 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 [facility] 07/29/24 Conclusions: * One vessel coronary artery disease (LAD) * Mild pulmonary hypertension * Elevated pulmonary capillary wedge pressure * Successful stent insertion of the proximal LAD lesion * See Dual Antiplatelet (DAPT) Recommendations above * Successful impella placement for cardiogenic shock. Telemetry: I have personally reviewed and interpreted the telemetry from the last 24 hours. [facility] Assessment: ASSESSMENT: Korey Montoya is a [...] to be determined OT: PCP Alexia Mtz, RELISH BLENDER [phone] * Zaida Dubose, PT - 08/02/2024 2:08 [...] with 2 NAOMI. 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 He [...] Total time: 37 (eval) minutes Time IN/OUT: 0814-1181 ZAIDA DUBOSE PT Pager: [phone] Physical Therapy Inpatient Rehabilitation Department * Gagan [...] at time of transfer to [facility]. CI initially 1.97, improved to 2.2 [...] PCP: Alexia Mtz APRN PCP phone number: [phone] Date of Admission: 07/29/2024 ( Hospital Day [...] 07/29/24 1621 PHART 7.48* 7.44 7.38 7.37 QDC2GMP 29* 29* 34* 36 PO2ART 71* 109* 141* 71* AUB4SHF 20.6 19.4* 19.5* 20.4 VBG (Venous Blood Gas) Recent Labs 07/29/24 1401 PHVEN 7.30* PO2VEN 39 RSK8CZI 20.1* Mixed Venous Sat No results for input(s): P0KMTC6 in the last 168 hours. Objective: Vitals [...] 07/29/24 1621 PHART 7.48* 7.44 7.38 7.37 LQZ2SVL 29* 29* 34* 36 PO2ART 71* 109* 141* 71* VTJ1RUD 20.6 19.4* 19.5* 20.4 VBG (Venous Blood Gas) Recent Labs 07/29/24 1401 PHVEN 7.30* PO2VEN 39 ORR5XKG 20.1* Mixed Venous Sat No results for input(s): L0BUWI2 in the last 168 hours. Microbiology: Microbiology Results (Last 30 days) Procedure Component Value Units Date/Time Blood culture [[id number]] Collected: 07/29/24 160 Lab Status: Preliminary result Specimen: Blood, Venous Updated: 08/01/24 170 Blood Culture No growth at 72 hours Blood culture [[id number]] Collected: 07/29/24 160 Lab Status: Preliminary result Specimen: Blood, Venous Updated: 08/01/24 170 Blood Culture No growth at 72 hours Imaging: Results for orders placed or performed during the hospital encounter of 07/29/24 XR Chest One View (Exam End: 07/29/2024 2:30 PM) Result Value WORKSTATION ID [id number] Impression 1. No pulmonary edema. 2. No pleural effusion. 3. No pneumothorax. Thank you for letting us participate in the care of this patient. If you are a health care provider and have any questions regarding this report, please contact the number below. For patients who have questions please contact the health small animal caretaker that requested your imaging first. Electronically signed by: Chris Candelaria MD, [facility] ([phone]), at 07/29/2024 3:21 PM TTE ( 07/30/24) [...] Compared to the overnight study by the social organization professor fellow the impella position is stable. [...] MD Internal Medicine, PGY-1 Cardiology, [facility] 08/02/24 12:45 PM CARDIOLOGY STAFF NOTE [...] today). Transfer to floor. Krystal Parker MD, [facility] Staff Delivery Assistant supervisor metal furniture fabrication * Gagan Catherine MD - 08/01/2024 11:12 [...] PCP: Alexia Mtz APRN PCP phone number: [phone] Date of Admission: 07/29/2024 ( Hospital Day [...] 07/29/24 1621 PHART 7.48* 7.44 7.38 7.37 SUJ7VDT 29* 29* 34* 36 PO2ART 71* 109* 141* 71* HBK6FHH 20.6 19.4* 19.5* 20.4 VBG (Venous Blood Gas) Recent Labs 07/29/24 1401 PHVEN 7.30* PO2VEN 39 TJD2NNR 20.1* Mixed Venous Sat No results for input(s): C7WKDX1 in the last 168 hours. PA Catheter [...] 07/29/24 1621 PHART 7.48* 7.44 7.38 7.37 XMT6JCY 29* 29* 34* 36 PO2ART 71* 109* 141* 71* HFB3AWJ 20.6 19.4* 19.5* 20.4 VBG (Venous Blood Gas) Recent Labs 07/29/24 1401 PHVEN 7.30* PO2VEN 39 DOI4TVS 20.1* Mixed Venous Sat No results for input(s): F3IGTI2 in the last 168 hours. Microbiology: Microbiology Results (Last 30 days) Procedure Component Value Units Date/Time Blood culture [[id number]] Collected: 07/29/241607 Lab Status: Preliminary result Specimen: Blood, Venous Updated: 07/31/241700 Blood Culture No growth at 48 hours Blood culture [[id number]] Collected: 07/29/241607 Lab Status: Preliminary result Specimen: Blood, Venous Updated: 07/31/241700 Blood Culture No growth at 48 hours Imaging: Results for orders placed or performed during the hospital encounter of 07/29/24 XR Chest One View (Exam End: 07/29/2024 2:30 PM) Result Value WORKSTATION ID [id number] Impression 1. No pulmonary edema. 2. No pleural effusion. 3. No pneumothorax. Thank you for letting us participate in the care of this patient. If you are a health care provider and have any questions regarding this report, please contact the number below. For patients who have questions please contact the health small animal caretaker that requested your imaging first. Electronically signed by: Chris Candelaria MD, [facility] ([phone]), at 07/29/2024 3:21 PM TTE ( 07/30/24) [...] Compared to the overnight study by the social organization professor fellow the impella position is stable. [...] with him; questions answered. Krystal Parker MD, [facility] Staff Delivery Assistant supervisor metal furniture fabrication * Krystal Parker MD - 07/31/2024 1:06 [...] at time of transfer to [facility]. CI initially 1.97, improved to 2.2 After impella. Received about 3 L of fluid during procedural course. Patient initially required norepinephrine 30, epinephrine 10, and vasopressin 0.04 for hemodynamic support, which was weaned upon arrival to [facility] to norepinephrine 20and levo 0.04 N [...] PCP: Alexia Mtz APRN PCP phone number: [phone] Date of Admission: 07/29/2024 ( Hospital Day [...] 0057 07/29/24 1621 PHART 7.44 7.38 7.37 QOH8RCG 29* 34* 36 PO2ART 109* 141* 71* NAL8LHR 19.4* 19.5* 20.4 VBG (Venous Blood Gas) Recent Labs 07/29/24 1401 PHVEN 7.30* PO2VEN 39 WVC4JVH 20.1* Mixed Venous Sat No results for input(s): W5LSML5 in the last 168 hours. PA Catheter [...] 0057 07/29/24 1621 PHART 7.44 7.38 7.37 EGM7TKE 29* 34* 36 PO2ART 109* 141* 71* NRB5RIL 19.4* 19.5* 20.4 VBG (Venous Blood Gas) Recent Labs 07/29/24 1401 PHVEN 7.30* PO2VEN 39 JZU2GIU 20.1* Mixed Venous Sat No results for input(s): G1AGQC4 in the last 168 hours. Microbiology: Microbiology Results (Last 30 days) Procedure Component Value Units Date/Time Blood culture [[id number]] Collected: 07/29/24 160 Lab Status: Preliminary result Specimen: Blood, Venous Updated: 07/30/24 170 Blood Culture No Growth at 18-24 hrs. Blood culture [[id number]] Collected: 07/29/241607 Lab Status: Preliminary result Specimen: Blood, Venous Updated: 07/30/241700 Blood Culture No Growth at 18-24 hrs. Imaging: Results for orders placed or performed during the hospital encounter of 07/29/24 XR Chest One View (Exam End: 07/29/2024 2:30 PM) Result Value WORKSTATION ID [id number] Impression 1. No pulmonary edema. 2. No pleural effusion. 3. No pneumothorax. Thank you for letting us participate in the care of this patient. If you are a health care provider and have any questions regarding this report, please contact the number below. For patients who have questions please contact the health small animal caretaker that requested your imaging first. Electronically signed by: Chris Candelaria MD, [facility] ([phone]), at 07/29/2024 3:21 PM TTE ( 07/30/24) [...] Compared to the overnight study by the social organization professor fellow the impella position is stable. [...] work to optimize volume status while continuing mxjkana-wzweeq-gjubjdwugh therapies at this time. Obtain comprehensive TTE. [...] at time of transfer to [facility]. CI initially 1.97, improved to 2.2 After impella. Received about 3 L of fluid during procedural course. Patient initially required norepinephrine 30, epinephrine 10, and vasopressin 0.04 for hemodynamic support, which was weaned upon arrival to [facility] to norepinephrine 20and levo 0.04 N [...] PCP: Yoel Artis APRN PCP phone number: [phone] Date of Admission: 07/29/2024 ( Hospital Day [...] 0057 07/29/24 1621 PHART 7.44 7.38 7.37 QLI6QKT 29* 34* 36 PO2ART 109* 141* 71* FFY7MFT 19.4* 19.5* 20.4 VBG (Venous Blood Gas) Recent Labs 07/29/24 1401 PHVEN 7.30* PO2VEN 39 QHP0GRT 20.1* Lactate ( Last 12 hours) 1.3 >> 1.2 Mixed Venous Sat No results for input(s): E7VLRC8 in the last 168 hours. PA Catheter [...] 0057 07/29/24 1621 PHART 7.44 7.38 7.37 AJX9LZF 29* 34* 36 PO2ART 109* 141* 71* NKJ5NLE 19.4* 19.5* 20.4 VBG (Venous Blood Gas) Recent Labs 07/29/24 1401 PHVEN 7.30* PO2VEN 39 MVN7XYJ 20.1* Mixed Venous Sat No results for input(s): L7YKPR6 in the last 168 hours. Microbiology: Microbiology Results (Last 30 days) Procedure Component Value Units Date/Time Blood culture [[id number]] Collected: 07/29/24 1608 Lab Status: In process Specimen: Blood, Venous Updated: 07/29/24 1626 Blood culture [[id number]] Collected: 07/29/24 1608 Lab Status: In process Specimen: Blood, Venous Updated: 07/29/24 1615 Imaging: Results for orders placed or performed during the hospital encounter of 07/29/24 XR Chest One View (Exam End: 07/29/2024 2:30 PM) Result Value WORKSTATION ID [id number] Impression 1. No pulmonary edema. 2. No pleural effusion. 3. No pneumothorax. Thank you for letting us participate in the care of this patient. If you are a health care provider and have any questions regarding this report, please contact the number below. For patients who have questions please contact the health small animal caretaker that requested your imaging first. Medications Scheduled [place] further management and [facility] demo nstrated 100% occlusion. No significant RCA, LMCA, or LCX disease. LOW placed in LAD with some residual distal disease meriting placement of overlapping distal stent. TTE showed apical akinesis and inferior hypokinesis with EF 20%. RHC showed elevated filling pressures. Impella placed and P-level 6 at time of transfer to [facility]. CI initially 1.97, improved to 2.2 After impella. Received about 3 L of fluid during procedural course. Patient initially required norepinephrine, epinephrine, and vasopressin for hemodynamic support, which was weaned upon arrival to [facility] to norepinephrine 20 and levo 0.04 [...] 4.57) performed by Brandan Mcgovern MD [facility] ENDOSCOPY Significant Family History: Family [...] mouth. Past Week nitroGLYcerin (NITROLINGUAL) 400 mcg/spray [place], Non-Aerosol 1 spray to anus for proctalgia [...] 3.5 guiding catheter and a 3.5 Fr [facility] [address] 20 Mhz using Manual pullback. Imaging [...] atmospheres. A premounted 3.00 x 22 mm Cerulean Terry (LOW) was deployed with a maximum inflation [...] A premounted 3.00 x 08 mm Jeison Terry (LOW) was deployed with a maximum inflation [...] a limited study performed by a fellow social organization professor to evaluate for cardiogenic shock with [...] Compared to the overnight study by the social organization professor fellow the impella position is stable. [...] PCP: Yoel Artis APRN PCP phone number: [phone] Date of Admission: 07/29/2024 ( Hospital Day [...] 4.57) performed by Brandan Mcgovern MD [facility] ENDOSCOPY Family History Family History [...] Blood Gas) No results for input(s): PHART, VCH5NEL, PO2ART, TEO2KAW, LACTATEVEN, CLU8IZR, PFRATIOART2 in the last 168 hours. VBG (Venous Blood Gas) Recent Labs 07/29/24 1401 PHVEN 7.30* PO2VEN 39 VWE7JME 20.1* Mixed Venous Sat No results for input(s): T0FDFH0 in the last 168 hours. PA Catheter [...] Blood Gas) No results for input(s): PHART, GJQ5JRP, PO2ART, GMK1XLH, LACTATEVEN, DGA4WLN, PFRATIOART2 in the last 168 hours. VBG (Venous Blood Gas) Recent Labs 07/29/24 1401 PHVEN 7.30* PO2VEN 39 XCR8ITV 20.1* Mixed Venous Sat No results for input(s): I9JCHW9 in the last 168 hours. Microbiology: Microbiology [...] [place]. Found to have 100% occlusion of LAD for which he underwent LOW to LAD.Otherwise no other significant vessel disease. Fahad is currently hemodynamically tenuous but improving upon admission to [facility], requiring hemodynamic support with norepinephrine and vasopressin at time of admission along with mechanical support with Impella device. Reassuringly, he demonstrates decreasing pressor requirements since admission to [facility], with epinephrine completely weaned. He does [...] MD Internal Medicine, PGY-3 Cardiology, [facility] 07/29/24 3:14 PM Cardiology Attending Note [...] MD, FACP, FACC Section of Cardiovascular Medicine [facility] Welt Wheelertechnical developer [facility] This patient meets or has [...] to the planned procedure. Hand Hygiene: The collections professional did perform hand hygiene prior to arterial [...] ease. Good wave form. Ivan Hernandez MD Courseware Developer Associated attestation - Rolando Yeh MD - [...] outpatient cardiac rehabilitation program at [facility] was discussed. Patient agrees to a referral [...] No Patient is insured through: Primary Insurance: [employer] MANAGED MEDICARE Payor: [employer] MANAGED MEDICARE / Plan: [facility] COMPLETE / Product Type: *No [...] of Discharge: 08/04/2024 Gaby Wong RN, CM [phone] * Initial Assessments - Char Meza OT [...] 4.57) performed by Brandan Mcgovern MD [facility] ENDOSCOPY Social History: Patient lives with his . Home Setup: 2 NAOMI to a 1 level home. DME: none Baseline ADL/Mobility: Independent with ADLs and IADLs. Enjoys walking. able assist as needed. Precautions/Special Considerations: Full code. Risk for falls. Subjective: I have access to an cloudswave gym. (Educated to wait for MD to [...] evaluation only Total Minutes, Occupational Therapy: 14 (5935-4728 (evaluation)) 2017 OT Evaluation Code Rationale: Diagnosis [...] and measurable assessment of functional outcome. Pager: [phone] Char Meza OT 08/03/2024 Occupational Therapy Rehabilitation [...] (Interventions Implemented as Appropriate) Flowsheets (Taken 08/01/2024 4674) Outcome Summary: A+O, no pain. NSR. MAP [...] Procedure Note: Patient Name: Korey Montoya : [id number] MR#: [id number] Case Date: 07/31/2024 Laser Technician: Surgeons and Role: * Maldonado Luis MD - Primary * Quinten Charles PA - Physician Manager Managed Care Preoperative diagnosis: shock, impella Postoperative diagnosis: * same * Procedure(s) performed: Impella removal form right DEPUTY CLERK OF COURT Access: Right DEPUTY CLERK OF COURT A time-out was conducted prior to the [...] care in [place] must abide by [place] law. The hierarchy [...] (i) The agent with financial power of commonwealth attorney or a conservator appointed in accordance [...] it) Home Address confirmed as: Mailing Address: [address] [address] Physical Address: [address] [place] [address] Social & Family Supports: All names listed below confirmed with patient as current and correct Extended Emergency Contact Information Primary Emergency Contact: Litzy Snaches Mobile Relation: Spouse Secondary Emergency Contact: Parvin [...] Coverage: Primary Insurance: [employer] MANAGED MEDICARE [facility]or: [facility] / Plan: [facility] MANAGED MEDICARE COMPLETE / Product Type: *No Product type* / Secondary Insurance: N/A ; Prescription Coverage: Yes Preferred Pharmacy: [address] - [address] [address] [place] Status: Patient is a : No Primary Care Provider confirmed: Alexia Mtz, RELISH BLENDER [phone] Patient/Caregiver Goals of Treatment: return home Potential [...] 07/29/2024 6:25 PM EST Pt arrived from catheterization laboratory technician @ 1400. CXR and EKG [...] Procedure Note: Patient Name: Korey Montoya : [id number] MR#: [id number] Case Date: 07/29/2024 Laser Technician: Surgeons and Role: * Vahe Marvin MD - Primary * Susannah Watts PA - Physician Manager Managed Care Preoperative diagnosis: STEMI Postoperative diagnosis: * STEMI, LAD Artery * * Cardiogenic Shock * Procedure(s) performed: [facility] Coronary angiogram Stent insertion coronary IVUS coronary Venous line insert [facility] [place] Colette Catheter Vascular closure device Ventricular assist [...] x 22 mm to 14 deonna JEISON Terry with LIZ 3 flow. Residual distal disease at distal stent, overlapping distal stent was inserted with 3.0 x 8 mm JEISON Terry. Systolic's in the 80's sustained. Patient re [...] 9:30 AM EST Appointment Non[place] [address] Mushtaq Murphy, RELISH BLENDER 10/31/2024 11:00 AM EST Office Visit Cardiology at [address] [address] Mushtaq Murphy, RELISH BLENDER Scheduled Orders Name Type Priority Associated Diagnoses [...] HEMATOLOGY ORDERABLE S [facility] [place] [address] * Magnesium (08/04/2024 6:08 AM EST) Pathologist [facility] [place] Magnesium 0.85 0.69 - 1.07 mMol/L 08/04/2024 7:07 AM [facility] Blood VENOUS BLOOD SPECIMEN / Unknown Venipuncture / Unknown 08/04/2024 6:08 AM EST 08/04/2024 6:19 AM EST Bridgette Stauffer MD CHEMISTRY ORDERABLES [facility] [place] [address] * Basic Metabolic Panel (08/04/2024 6:08 AM EST) Pathologist [facility] [place] Glucose 93 65 - 199 mg/dL 08/04/2024 [...] MD CHEMISTRY ORDERABLES [facility] [place] [address] * (ABNORMAL) CBC (with Diff) (08/03/2024 5:16 [...] ORDERABLE S Performing Organization Address City/[facility]/ZIP Co de Phone Number [facility] [place] [address] * Magnesium (08/03/2024 5:16 AM EST) Magnesium 0.89 0.69 - 1.07 mMol/L 08/03/2024 5:56 AM [facility] Blood VENOUS BLOOD SPECIMEN / Unknown Venipuncture / Unknown 08/03/2024 5:16 AM EST 08/03/2024 5:23 AM EST Bridgette Stauffer MD CHEMISTRY ORDERABLES [facility] [place] [address] * (ABNORMAL) Basic Metabolic Panel (08/03/2024 5:16 AM EST) Glucose 98 65 - 199 mg/dL 08/03/2024 5:56 AM [facility] Comment:Glucose Concentratio n >=200 mg/dL plus symptoms is consistent with Diabetes Mellitus. Blood Urea Nitrogen 16 10 - 20 mg/dL 08/03/2024 5:56 AM [facility] Creatinine 0.85 0.80 - 1.50 mg/dL 08/03/2024 5:56 AM EST [facility] Sodium 137 135 - [...] MD CHEMISTRY ORDERABLES [facility] [place] [address] * POC, GLUCOSE (08/02/2024 7:47 AM EST) Glucometer, POC 89 65 - 199 mg/dL 08/02/2024 7:47 AM [facility] Comment:Supplemental ranges: <140 mg/dL before meals <180 mg/dL all other times of the day. Blood CAPILLARY BLOOD / Unknown 08/02/2024 7:47 AM EST 08/02/2024 7:47 AM EST Krystal Parker MD POINT OF CARE TEST O RDERABLES [facility] [place] [address] * (ABNORMAL) CBC (with Diff) (08/02/2024 4:20 AM EST) [facility] White Blood Cell 8.51 4.00 [...] ORDERABLE S Performing Organization Address City/[facility]/ZIP Co de Phone Number [facility] [place] [address] * Magnesium (08/02/2024 4:20 AM EST) Magnesium 0.79 0.69 - 1.07 mMol/L 08/02/2024 5:06 AM [facility] Blood VENOUS BLOOD SPECIMEN / Unknown Venipuncture / Unknown 08/02/2024 4:20 AM EST 08/02/2024 4:37 AM EST Bridgette Stauffer MD CHEMISTRY ORDERABLES Performing Organization Address City/[facility] Co de Phone Number [facility] [place] [address] * (ABNORMAL) Basic Metabolic Panel (08/02/2024 4:20 [...] - 107 mMol/L 08/02/2024 5:06 AM EST [facility] Carbon Dioxide 23 22 [...] mL/min/1. 73 m?? 08/02/2024 5:06 AM EST [facility] Comment: [...] Stauffer MD CHEMISTRY ORDERABLES Performing Organization Address City/State/[facility] Co de Phone Number [facility] [place] [address] * Potassium (08/01/2024 8:39 PM EST) Potassium 4.0 3.5 - 5.0 mMol/L 08/01/2024 9:21 PM EST [facility] Blood VENOUS BLOOD SPECIMEN / Unknown Venipuncture / Unknown 08/01/2024 8:39 PM EST 08/01/2024 8:51 PM EST Aubree Silverio MD CHEMISTRY ORDERABL ES Performing Organization Address [facility] Co de Phone Number [facility] [place] [address] * POC, GLUCOSE (08/01/2024 8:35 PM EST) Glucometer, POC 112 65 - 199 mg/dL 08/01/2024 8:36 PM EST [facility] Comment:Supplemental ranges: <140 mg/dL before meals <180 mg/dL all other times of the day. Blood CAPILLARY BLOOD / Unknown 08/01/2024 8:35 PM EST 08/01/2024 8:36 PM EST Krystal Parker MD POINT OF CARE TEST O RDKAY Performing Organization Address [facility] de Phone Number [facility] [place] [address] * POC, GLUCOSE (08/01/2024 4:55 PM EST) [...] Address [facility] Co de Phone Number [facility] [place] [address] * POC, GLUCOSE (08/01/2024 12:42 PM EST) Glucometer, POC 130 65 - 199 mg/dL 08/01/2024 12:43 PM EST [facility] Comment:Supplemental ranges: <140 mg/dL before meals <180 mg/dL all other times of the day. Blood CAPILLARY BLOOD / Unknown 08/01/2024 12:42 PM EST 08/01/2024 12:43 PM EST Krystal Parker MD POINT OF CARE TEST O RDERASHAY Performing Organization Address City/[facility]/ZIP Co de Phone Number [facility] [place] [address] * (ABNORMAL) Cooximetry, POC (08/01/2024 10:45 AM EST) pO2, Coox 32 mmHg 08/01/2024 10:48 AM EST [facility] Hemoglobin, Coox 12.9(L) 13.7 [...] MD POINT OF CARE TEST O RDKAY [facility] [place] [address] * Potassium (08/01/2024 8:20 AM EST) Potassium 4.0 3.5 - 5.0 mMol/L 08/01/2024 10:17 AM EST [facility] Blood ARTERIAL BLOOD / Unknown Venipuncture / Unknown 08/01/2024 8:20 AM EST 08/01/2024 8:30 AM EST Aubree Silverio MD CHEMISTRY ORDERABL ES Performing Organization Address City/[facility]/ZIP Co de Phone Number [facility] [place] [address] * POC, GLUCOSE (08/01/2024 7:44 AM EST) [facility] Glucometer, POC 86 65 - 199 mg/dL 08/01/2024 7:44 AM [facility] Comment:Supplemental ranges: <140 mg/dL before meals <180 mg/dL all other times of the day. Blood CAPILLARY BLOOD / Unknown 08/01/2024 7:44 AM EST 08/01/2024 7:44 AM EST Krystal Parker MD POINT OF CARE TEST O RDERABLES Performing Organization Address [facility] Co de Phone Number [facility] [place] [address] * (ABNORMAL) CBC (with Diff) (08/01/2024 4:18 AM EST) [facility] White Blood Cell 8.51 4.00 [...] % 0.2 % 08/01/2024 4:53 AM EST [facility] Baso Absolute <0.04 0.00 - 0.10 x10(3)/mc L 08/01/2024 4:53 AM EST [facility] Immature Gran % 0.4 % 4:53 AM [facility] Immature Gran Absolute <0.04 0.00 - 0.04 x10(3)/mc L 08/01/2024 4:53 AM EST [facility] Blood VENOUS BLOOD SPECIMEN / Unknown Venipuncture / Unknown 08/01/2024 4:18 AM EST 08/01/2024 4:29 AM EST Bridgette Stauffer MD HEMATOLOGY ORDERABLE S [facility] [place] [address] * Magnesium (08/01/2024 4:18 AM EST) Magnesium 0.74 0.69 - 1.07 mMol/L 08/01/2024 5:00 AM [facility] Blood VENOUS BLOOD SPECIMEN / Unknown Venipuncture / Unknown 08/01/2024 4:18 AM EST 08/01/2024 4:29 AM EST Bridgette Stauffer MD CHEMISTRY ORDERABLES [facility] [place] [address] * (ABNORMAL) Basic Metabolic Panel (08/01/2024 4:18 AM EST) Glucose 107 65 - 199 mg/dL 08/01/2024 5:00 AM [facility] Comment:Glucose Concentratio n >=200 mg/dL plus symptoms is consistent with Diabetes Mellitus. Blood Urea Nitrogen 8(L) 10 - 20 mg/dL 08/01/2024 5:00 AM EST [facility] Creatinine 0.82 0.80 - [...] MD CHEMISTRY ORDERABLES [facility] [place] [address] * POC, GLUCOSE (07/31/2024 8:41 PM EST) [facility] Signature Glucometer, POC 73 65 - 199 mg/dL 07/31/2024 8:41 PM EST [facility] Comment:Supplemental ranges: <140 mg/dL before meals <180 mg/dL all other times of the day. Blood CAPILLARY BLOOD / Unknown 07/31/2024 8:41 PM EST 07/31/2024 8:41 PM EST Krystal Parker MD POINT OF CARE TEST O RDERABLES [facility] [place] [address] * CARDIAC CATHETERIZATION (07/31/2024 5:53 PM EST) Anatomical Region Laterality Modality Other Narrative 08/01/2024 12:37 PM EST ?[facility] ? Cardiac Catheterization/Intervention Report ? Patient Name: Korey Montoya Kyrie. ? Procedure Date: 07/31/2024 ? A #: [id number] ? Primary Physician: Maldonado Luis ? Case #: [id number] ? File Name: [id number] ? Catheterization Order Number: [id number] ? [facility] ? Final Report [place], [place] ? Patient Name: ? Korey Mittal. Jan ?ID#: ?[id number] ? : ?1950 ? Procedure Date: ? [...] ? Comments: ?Impella removed from the right DEPUTY CLERK OF COURT with deployment of Perclose and ?Angioseal. ??Good [...] Korey Montoya Procedure Date: 07/31/2024 A #: [id number] Primary Physician: Maldonado Luis Case #: [id number] File Name: [id number] Catheterization Order Number: [id number] [facility] FinalReport [place], [place] Patient Name: Korey Montoya ID#:[id number] :1950 Procedure Date: July 31, 2024 Case [...] procedures. Comments: Impella removed from the right DEPUTY CLERK OF COURT with deployment of Perclose and Angioseal. Good [...] * POC, GLUCOSE (07/31/2024 11:04 AM EST) [facility] Glucometer, POC 82 65 - 199 mg/dL 07/31/2024 11:04 AM [facility] Comment:Supplemental ranges: <140 mg/dL before meals <180 mg/dL all other times of the day. Blood CAPILLARY BLOOD / Unknown 07/31/2024 11:04 AM EST 07/31/2024 11:04 AM EST Krystal Parker MD POINT OF CARE TEST O RDERABLES [facility] [place] [address] * (ABNORMAL) Blood Gas, Arterial POC (07/31/2024 [...] TEST O RDERABLES [facility] [place] [address] * POC, GLUCOSE (07/31/2024 7:47 AM EST) Glucometer, POC 82 65 - 199 mg/dL 07/31/2024 7:53 AM [facility] Comment:Supplemental ranges: <140 mg/dL before meals <180 mg/dL all other times of the day. Blood CAPILLARY BLOOD / Unknown 07/31/2024 7:47 AM EST 07/31/2024 7:53 AM EST Krystal Parker MD POINT OF CARE TEST O RDERABLES [facility] [place] [address] * (ABNORMAL) CBC (with Diff) (07/31/2024 1:08 [...] HEMATOLOGY ORDERABLE S [facility] [place] [address] * Magnesium (07/31/2024 1:08 AM EST) Pathologist [facility] [place] Magnesium 0.89 0.69 - 1.07 mMol/L 07/31/2024 1:46 AM [facility] Blood VENOUS BLOOD SPECIMEN / Unknown Venipuncture / Unknown 07/31/2024 1:08 AM EST 07/31/2024 1:18 AM EST Bridgetet Stauffer MD CHEMISTRY ORDERABLES Performing Organization Address City/[facility]/ZIP Co de Phone Number [facility] [place] [address] * (ABNORMAL) Basic Metabolic Panel (07/31/2024 1:08 AM EST) [facility] Glucose 97 65 - 199 mg/dL 07/31/2024 [...] - 10.5 mg/dL 07/31/2024 1:46 AM EST [facility] Est Glomerular Filtration Rate - Male 84 mL/min/1. 73 m?? 07/31/2024 1:46 AM EST [facility] Comment: [...] MD CHEMISTRY ORDERABLES [facility] [place] [address] * (ABNORMAL) Hepatic Function Panel (07/31/2024 1:08 AM EST) Albumin 3.1(L) 3.2 - 5.2 g/dL 07/31/2024 1:46 AM EST [facility] Aspartate Aminotransferase 192(H) <=39 unit/L 07/31/2024 1:46 AM EST [facility] Alanine Aminotransferase 59(H) 0 [...] CHEMISTRY ORDERABLES Performing Organization Address City/[facility]/ZIP Co de Phone Number [facility] [place] [address] * POC, GLUCOSE (07/30/2024 8:03 PM EST) [...] Address [facility] Co de Phone Number [facility] [place] [address] * Potassium (07/30/2024 8:03 PM EST) Potassium 3.8 3.5 - 5.0 mMol/L 07/30/2024 9:13 PM EST [facility] Blood VENOUS BLOOD SPECIMEN / Unknown Venipuncture / Unknown 07/30/2024 8:03 PM EST 07/30/2024 8:22 PM EST Aubree Silverio MD CHEMISTRY ORDERABL ES Performing Organization Address [facility] Co de Phone Number [facility] [place] [address] * POC, GLUCOSE (07/30/2024 6:23 PM EST) Glucometer, POC 93 65 - 199 mg/dL 07/30/2024 6:24 PM EST [facility] Comment:Supplemental ranges: <140 mg/dL before meals <180 mg/dL all other times of the day. Blood CAPILLARY BLOOD / Unknown 07/30/2024 6:23 PM EST 07/30/2024 6:24 PM EST Krystal Parker MD POINT OF CARE TEST O RDERABLES Performing Organization Address City/[facility]/ZIP Co de Phone Number [facility] [place] [address] * POC, GLUCOSE (07/30/2024 5:08 PM EST) [...] Address [facility]/ZIP Co de Phone Number [facility] [place] [address] * (ABNORMAL) Phosphorus (07/30/2024 3:08 PM EST) Phosphorus 2.1(L) 2.5 - 4.5 mg/dL 07/30/2024 3:58 PM EST [facility] Blood VENOUS BLOOD SPECIMEN / Unknown Venipuncture / Unknown 07/30/2024 3:08 PM EST 07/30/2024 3:12 PM EST Aubree Silverio MD CHEMISTRY ORDERABL ES Performing Organization Address City/[facility]/ZIP Co de Phone Number [facility] [place] [address] * Magnesium (07/30/2024 3:08 PM EST) Magnesium 0.90 0.69 - 1.07 mMol/L 07/30/2024 3:58 PM EST [facility] Blood VENOUS BLOOD SPECIMEN / Unknown Venipuncture / Unknown 07/30/2024 3:08 PM EST 07/30/2024 3:12 PM EST Aubree Silverio MD CHEMISTRY ORDERABL ES [facility] [place] [address] * (ABNORMAL) Basic Metabolic Panel (07/30/2024 3:08 PM EST) Pathologist [facility] [place] Glucose 105 65 - 199 mg/dL 07/30/2024 [...] - 107 mMol/L 07/30/2024 4:17 PM EST [facility] Carbon Dioxide 21(L) 22 - 31 mMol/L 07/30/2024 4:17 PM EST [facility] Anion Gap 11 5 - 15 mMol/L 07/30/2024 4:17 PM EST [facility] Calcium 7.9(L) 8.5 - 10.5 mg/dL 07/30/2024 4:17 PM EST [facility] Est Glomerular Filtration Rate - Male 79 mL/min/1. 73 m?? 07/30/2024 4:17 PM EST [facility] Comment: [...] [facility] Co de Phone Number [facility] [place] [address] * ECHO LMTD W CONTRAST W LMTD SPEC DOPP COLOR DOPP (07/30/2024 11:42 AM EST) Anatomical Region Laterality Modality Cardiac Other 07/30/2024 10:2 2 AM EST Narrative 07/30/2024 12:34 PM EST [address] [place] [address] ? Echocardiogram Report Name: KOREY MONTOYA ? Study Date: 07/30/2024 10:22 AMBP: 124/66 mmHg : 1950 ? Height: 168 cm ? Account: [id number] Age: 74 yrs ? Weight: 65 kg Gender: Male ?BSA: 1.7 m2 Ordering Physician: Aubree Silverio MD Referring Physician: CHAPARRO FERRERA Performed By: OMERO Millan Reason For Study: ST elevation myocardial infarction involving left anterior descending (LAD) coronary artery Interpreting Fellow: Ivan Hernandez. Exam Location: [facility]. Interpretation Summary Left ventricle is severely [...] Compared to the overnight study by the social organization professor fellow the impella position is stable. 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 Procedure Limited - 98112. Image enhancement Definity was used for both [...] Note Kathleen Banda MD - 07/30/2024 [address] [place] [id number] Echocardiogram Report Name: KOREY MONTOYA Kyrie Study Date: 410:22 AMBP: 124/66 mmHg : 1950 Height: 168 cm Account: [id number] Age: 74 yrs Weight: 65 kg Gender: Male BSA: 1.7 m2 Ordering Physician: Aubree Silverio MD Referring Physician: CHAPARRO FERRERA Performed By: OMERO Millan Reason For Study: ST elevation myocardial infarction involving leftanterior descending (LAD) coronary artery Interpreting Fellow: Ivan Hernandez. Exam Location: [facility]. Interpretation Summary Left ventricle is severely [...] Compared to the overnight study by the social organization professor fellow the impella positionis stable. The global left ventricular systolic function has improvedpredominantly via recruitment outside the LAD territory which remains akinetic. Procedure Limited - 99330. Image enhancement Definity was used for both [...] CARE TEST ORDERABLES [facility] [place] [address] * (ABNORMAL) Blood Gas, Arterial POC (07/30/2024 8:16 AM EST) Pathologist [facility] [place] pH, Arterial 7.44 7.35 - 7.45 07/30/2024 [...] CARE TEST ORDERABLES [facility] [place] [address] * (ABNORMAL) Troponin - Single (07/30/2024 8:09 [...] troponin value can be found in the [facility] Test Catalog Troponin - [email or web address].org/catalogs/565/files/66936 Reference: Fourth [place] Definition of Myocardial Infarction. Journal of the [place] College [employer] 2018;72:3265-6334 Blood VENOUS BLOOD SPECIMEN / Unknown Venipuncture / Unknown 07/30/2024 8:09 AM EST 07/30/2024 8:26 AM EST Aubree Silverio MD CHEMISTRY ORDERABL ES Performing Organization Address [facility] Co de Phone Number [facility] [place] [address] * POC, GLUCOSE (07/30/2024 7:40 AM EST) Pathologist [facility] [place] Glucometer, POC 111 65 - 199 mg/dL 07/30/2024 7:40 AM EST [facility] Comment:Supplemental ranges: <140 mg/dL before meals <180 mg/dL all other times of the day. Blood CAPILLARY BLOOD / Unknown 07/30/2024 7:40 AM EST 07/30/2024 7:40 AM EST Aubree Silverio MD POINT OF CARE TEST ORDERABLES Performing Organization Address [facility] Co de Phone Number [facility] [place] [address] * (ABNORMAL) CBC (with Diff) (07/30/2024 2:11 [...] 6.10 x10(3)/mc L 07/30/2024 2:33 AM EST [facility] Lymph % 5.1 % 07/30/2024 2:33 AM [facility] Lymph Absolute 0.57(L) 0.90 - 3.20 x10(3)/mc L 07/30/2024 2:33 AM EST [facility] Monocyte % 5.4 % 07/30/2024 2:33 AM EST [facility] Monocyte Absolute 0.61 0.30 - 0.90 x10(3)/mc L 07/30/2024 2:33 AM EST [facility] Eos % 0.0 % [...] HEMATOLOGY ORDERABLE S [facility] [place] [address] * Magnesium (07/30/2024 2:11 AM EST) Magnesium 1.01 0.69 - 1.07 mMol/L 07/30/2024 2:51 AM [facility] Blood VENOUS BLOOD SPECIMEN / Unknown Venipuncture / Unknown 07/30/2024 2:11 AM EST 07/30/2024 2:22 AM EST Bridgette Stauffer MD CHEMISTRY ORDERABLES [facility] [place] [address] * (ABNORMAL) Basic Metabolic Panel (07/30/2024 2:11 [...] Stauffer MD CHEMISTRY ORDERABLES Performing Organization Address City/State/[facility] Co ct Phone Number [facility] [place] [address] * (ABNORMAL) Cooximetry, POC (07/30/2024 1:00 AM EST) pO2, Coox 28 mmHg 07/30/2024 1:03 AM [facility] Hemoglobin, Coox 12.7(L) 13.7 - 16.5 g/dL 07/30/2024 1:03 AM EST [facility] Oxyhemoglobin, Coox 54.9 % 07/30/2024 1:03 AM [facility] Carboxyhemoglo bin, Coox 1.0 % 07/30/2024 1:03 AM EST [facility] Comment: Nonsmokers: 0.5-1.5% COHB ?? Smokers: Variable ??but usually less than 10% ?? Toxic: 20-30% COHB ?? Lethal: Greater than 60% COHB Methemoglobin, Coox 0.0 <=1.5 % 07/30/2024 1:03 AM EST [facility] Blood (Mixed Venous) 07/30/2024 1:00 AM EST 07/30/2024 1:03 AM EST Aubree Silverio MD POINT OF CARE TEST ORDERABLES [facility] [place] [address] * (ABNORMAL) Blood Gas, Arterial POC (07/30/2024 [...] - 107 mmol/L 07/30/2024 12:58 AM EST [facility] Lactate, Arterial 1.3 0.5 - 2.2 mmol/L 07/30/2024 12:58 AM EST [facility] Flow Rate 2.0 L/min 07/30/2024 12:58 AM EST [facility] IONIZED CALCIUM, ARTERIAL 1.12(L) 1.15 - 1.33 mmol/L 07/30/2024 12:58 AM EST [facility] Glucose, Arterial 184 65 - 199 mg/dL 07/30/2024 12:58 AM EST [facility] Comment:Glucose Concentratio n >=200 mg/dL plus symptoms is consistent with Diabetes Mellitus. Blood ARTERIAL BLOOD / Unknown 07/30/2024 12:57 AM EST 07/30/2024 12:58 AM EST Aubree Silverio MD POINT OF CARE TEST ORDERABLES Performing Organization Address City/State/[facility] Co de Phone Number [facility] [place] [address] * (ABNORMAL) Troponin - Single (07/29/2024 10:31 [...] troponin value can be found in the [facility] Test Catalog Troponin - https://[email or web address].org/catalogs/565/files/77301 Reference: Fourth [place] Definition of Myocardial Infarction. Journal of the [place] College [employer] Cardiology 2018;72:8288-7006 Blood VENOUS BLOOD SPECIMEN / Unknown Venipuncture / Unknown 07/29/2024 10:31 PM EST 07/29/2024 10:36 PM EST Yrn Velazquez MD CHEMISTRY ORDERABL ES Performing Organization Address [facility]/ZIP Co de Phone Number [facility] [place] [address] * Potassium (07/29/2024 8:11 PM EST) Potassium 4.1 3.5 - 5.0 mMol/L 07/29/2024 8:52 PM EST [facility] Blood VENOUS BLOOD SPECIMEN / Unknown Venipuncture / Unknown 07/29/2024 8:11 PM EST 07/29/2024 8:16 PM EST Aubree Silverio MD CHEMISTRY ORDERABL ES Performing Organization Address City/[facility]/ZIP Co de Phone Number [facility] [place] [address] * (ABNORMAL) Troponin - Single (07/29/2024 8:11 [...] troponin value can be found in the [facility] Test Catalog Troponin - https://[email or web address].org/catalogs/565/files/78566 Reference: Fourth [place] Definition of Myocardial Infarction. Journal of the [place] College of Cardiology 2018;72:5458-5810 Blood VENOUS BLOOD SPECIMEN / Unknown Venipuncture / Unknown 07/29/2024 8:11 PM EST 07/29/2024 8:16 PM EST Aubree Silverio MD CHEMISTRY ORDERABL ES Performing Organization Address City/[facility]/ZIP Co de Phone Number [facility] [place] [address] * (ABNORMAL) Phosphorus (07/29/2024 8:11 PM EST) Phosphorus 2.1(L) 2.5 - 4.5 mg/dL 07/29/2024 8:52 PM EST [facility] Blood VENOUS BLOOD SPECIMEN / Unknown Venipuncture / Unknown 07/29/2024 8:11 PM EST 07/29/2024 8:16 PM EST Aubree Silverio MD CHEMISTRY ORDERABL ES [facility] [place] [address] * POC, GLUCOSE (07/29/2024 8:09 PM EST) Glucometer, POC 142 65 - 199 mg/dL 07/29/2024 8:09 PM EST [facility] Comment:Supplemental ranges: <140 mg/dL before meals <180 mg/dL all other times of the day. Blood CAPILLARY BLOOD / Unknown 07/29/2024 8:09 PM EST 07/29/2024 8:09 PM EST Aubree Silverio MD POINT OF CARE TEST ORDERABLES Performing Organization Address City/[facility]/ZIP Co de Phone Number [facility] [place] [address] * ABORH RECHECK (07/29/2024 6:43 PM EST) Pathologist [facility] [place] ABORH Recheck AB POSITIVE 07/29/2024 10:13 PM EST [facility] Blood VENOUS BLOOD SPECIMEN / Unknown Venipuncture / Unknown 07/29/2024 6:43 PM EST 07/29/2024 7:15 PM EST Aubree Silverio MD BLOOD BANK LAB ORD ERABLES Performing Organization Address City/[facility] Co de Phone Number [facility] [place] [place] [address] * POC, GLUCOSE (07/29/2024 5:57 PM EST) [facility] Glucometer, POC 166 65 - 199 mg/dL 07/29/2024 5:57 PM EST [facility] Comment:Supplemental ranges: <140 mg/dL before meals <180 mg/dL all other times of the day. Blood CAPILLARY BLOOD / Unknown 07/29/2024 5:57 PM EST 07/29/2024 5:57 PM EST Aubree Silverio MD POINT OF CARE TEST ORDERABLES Performing Organization Address City/[facility]/ZIP Co de Phone Number [facility] [place] [address] * Type and screen ([facility]/CGP/MAGLAIE) (07/29/2024 5:56 PM EST) Pathologist [facility] [place] ABORH Type AB POSITIVE 07/29/2024 9:44 PM EST [facility] PATIENT HISTORY Not Found 07/29/2024 9:44 PM EST [facility] Expires at [id number] on: 08/01/2024 07/29/2024 9:44 PM EST [facility] ANTIBODY SCREEN AUTOMATED Negative 07/29/2024 9:44 PM EST [facility] T&S only valid at [facility] 07/29/2024 9:44 PM EST [facility] Blood VENOUS BLOOD SPECIMEN / Unknown Venipuncture / Unknown 07/29/2024 5:56 PM EST 07/29/2024 6:07 PM EST Narrative [facility] - 07/29/2024 9:44 PM EST This Type and Screen result is only valid at the [facility] Aubree Silverio MD BLOOD BANK LAB ORD ERABLES [facility] [place] [place] [address] * (ABNORMAL) Troponin - Single (07/29/2024 4:52 PM EST) [facility] Troponin-T, High Sensitivity >10,000(H ) [...] troponin value can be found in the [facility] Test Catalog Troponin - [email or web address]/catalogs/565/files/07607 Reference: Fourth [place] Definition of Myocardial Infarction. Journal of the [place] College [employer] 2018;72:4041-1735 Blood VENOUS BLOOD SPECIMEN / Unknown Venipuncture / Unknown 07/29/2024 4:52 PM EST 07/29/2024 4:57 PM EST Aubree Silverio MD CHEMISTRY ORDERABL ES Performing Organization Address City/[facility]/ZIP Co de Phone Number [facility] [place] [address] * EKG 12 Lead (07/29/2024 4:21 PM EST) Ventricular rate 72 BPM MUSE SYSTEM Atrial Rate 72 BPM MUSE SYSTEM P-R Interval 168 ms MUSE SYSTEM QRS Duration 82 ms MUSE SYSTEM Q-T Interval 392 ms MUSE SYSTEM QTC Calculated (Bezet) 429 ms MUSE SYSTEM Calculated P Lohman 71 degrees MUSE SYSTEM Calculated R Lohman 77 degrees MUSE SYSTEM Calculated T Lohman 28 degrees MUSE SYSTEM INTERPRETATION Sinus rhythm [...] ECG ORDERABLES Performing Organization Address City/[facility]/ZIP Co de Phone Number MUSE SYSTEM * (ABNORMAL) Blood Gas, Arterial POC (07/29/2024 4:21 PM EST) pH, Arterial 7.37 7.35 - 7.45 07/29/2024 4:22 PM EST [facility] PCO2, Arterial 36 35 - 45 mmHg 07/29/2024 4:22 PM EST [facility] PO2, Arterial [...] - 1.33 mmol/L 07/29/2024 4:22 PM EST [facility] Glucose, Arterial 181 65 - 199 mg/dL 07/29/2024 4:22 PM EST [facility] Comment:Glucose Concentratio n >=200 mg/dL plus symptoms is consistent with Diabetes Mellitus. Blood ARTERIAL BLOOD / Unknown 07/29/2024 4:21 PM EST 07/29/2024 4:22 PM EST Aubree Silverio MD POINT OF CARE TEST ORDERABLES [facility] [place] [address] * POC, GLUCOSE (07/29/2024 4:19 PM EST) Glucometer, POC 185 65 - 199 mg/dL 07/29/2024 4:19 PM EST [facility] Comment:Supplemental ranges: <140 mg/dL before meals <180 mg/dL all other times of the day. Blood CAPILLARY BLOOD / Unknown 07/29/2024 4:19 PM EST 07/29/2024 4:19 PM EST Aubree Silverio MD POINT OF CARE TEST ORDERABLES Performing Organization Address [facility]/ZIP Co de Phone Number [facility] [place] [address] * Blood culture (07/29/2024 4:08 PM EST) Blood Culture No growth at 120 hours 08/03/2024 5:01 PM EST [facility] Blood VENOUS BLOOD SPECIMEN / Unknown Venipuncture / Unknown 07/29/2024 4:08 PM EST 07/29/2024 4:15 PM EST Aubree Silverio MD MICROBIOLOGY - BLO OD ORDERABLES Performing Organization Address City/[facility]/ZIP Co de Phone Number [facility] [place] [address] * Blood culture (07/29/2024 4:08 PM EST) Blood Culture No growth at 120 hours 08/03/2024 5:01 PM EST [facility] Blood VENOUS BLOOD SPECIMEN / Unknown Venipuncture / Unknown 07/29/2024 4:08 PM EST 07/29/2024 4:26 PM EST Aubree Silverio MD MICROBIOLOGY - BLO OD ORDERABLES [facility] [place] [address] * XR Chest One View (07/29/2024 2:30 PM EST) Pathologist [employer] WORKSTATION ID [id number] RAD Anatomical Region Laterality Modality Chest N/A [...] who have questions please contact the health small animal caretaker that requested your imaging first. [...] patients who have questions please contactthe health small animal caretaker that requested your imaging first. Electronically signed by: Chris Candelaria MD, [facility]([phone]), at 07/29/2024 3:21 PM Vahe Marvin MD IMG DX ORDERABLES * (ABNORMAL) APTT (07/29/2024 2:03 PM EST) Partial Thromboplastin Time >160(HH[facility]) 25 - 37 sec 07/29/2024 2:56 PM EST [facility] Blood VENOUS BLOOD SPECIMEN / Unknown Venipuncture / Unknown 07/29/2024 2:03 PM EST 07/29/2024 2:13 PM EST Vahe Marvin MD HEMATOLOGY ORDERABLE S [facility] [place] [address] * (ABNORMAL) Prothrombin Time (07/29/2024 2:03 PM [...] ORDERABLE S Performing Organization Address City/[facility]/ZIP Co de Phone Number [facility] [place] [address] * CRP, acute inflammation (07/29/2024 2:03 PM EST) [facility] C-Reactive Protein <3.0 <=4.9 mg/L 07/29/2024 2:52 PM EST [facility] Blood VENOUS BLOOD SPECIMEN / Unknown Venipuncture / Unknown 07/29/2024 2:03 PM EST 07/29/2024 2:14 PM EST Vahe Marvin MD CHEMISTRY ORDERABLES [facility] [place] [address] * Lipid Panel (Reflex Direct LDL) (07/29/2024 2:03 PM EST) Pathologist [facility] Cholesterol, Total 133 mg/dL 07/29/2024 2:52 PM EST [facility] Comment: Desirable: < 200 [...] 2:03 PM EST 07/29/2024 2:14 PM EST [facility]ORY - 07/29/2024 2:52 PM [...] ACC/AHA Guidelines (most recently Rolf et al. [facility] 06/15/22): * For individuals with [...] CHEMISTRY ORDERABLES Performing Organization Address City/[facility]/ZIP Co de Phone Number [facility] [place] [address] * TSH [place] (07/29/2024 2:03 PM EST) Thyroid Stimulating Hormone 0.70 0.27 - 4.20 mcIU/mL 07/29/2024 2:52 PM EST [facility] Blood VENOUS BLOOD SPECIMEN / Unknown Venipuncture / Unknown 07/29/2024 2:03 PM EST 07/29/2024 2:14 PM EST Vahe Marvin MD CHEMISTRY ORDERABLES Performing Organization Address City/[facility]/ZIP Co de Phone Number [facility] [place] [address] * Hemoglobin A1c (07/29/2024 2:03 PM EST) [facility] Hemoglobin A1c 5.3 4.3 - 5.6 % [...] red blood cell turnover may not be circulation sales representative of glycemic control. Reference Interval: [...] into estimated average glucose values. ??Diabetes Care 2008:31(8):9944-2760. Additional resources are available on the ADA website (diabetes.org). Vahe Marvin MD CHEMISTRY ORDERABLES Performing Organization Address City/[facility]/ZIP Co de Phone Number [facility] [place] [address] * (ABNORMAL) CBC (with Diff) (07/29/2024 2:03 PM EST) [facility] White Blood Cell 19.50(H) 4.00 - 9.50 [...] 6.10 x10(3)/mc L 07/29/2024 2:18 PM EST [facility] Lymph % 2.7 % 07/29/2024 2:18 PM EST [facility] Lymph Absolute 0.52(L) 0.90 - 3.20 x10(3)/mc L 07/29/2024 2:18 PM EST [facility] Monocyte % 2.9 % 07/29/2024 2:18 PM EST [facility] Monocyte Absolute 0.56 0.30 - 0.90 x10(3)/mc L 07/29/2024 2:18 PM EST [facility] Eos % 0.0 % 07/29/2024 2:18 PM [facility] Eos Absolute <0.04 0.00 - 0.40 x10(3)/mc L 07/29/2024 2:18 PM [facility] Basophil % 0.3 % 07/29/2024 2:18 PM [facility] Baso Absolute 0.05 0.00 - 0.10 x10(3)/mc L 07/29/2024 2:18 PM EST [facility] Immature Gran % 0.5 % 2:18 PM [facility] Immature Gran Absolute 0.09(H) 0.00 - 0.04 x10(3)/mc L 07/29/2024 2:18 PM [facility] Blood VENOUS BLOOD SPECIMEN / Unknown Venipuncture / Unknown 07/29/2024 2:03 PM EST 07/29/2024 2:13 PM EST Vahe Marvin MD HEMATOLOGY ORDERABLE S [facility] [place] [address] * Phosphorus (07/29/2024 2:03 PM EST) Phosphorus 2.5 2.5 - 4.5 mg/dL 07/29/2024 2:52 PM [facility] Blood VENOUS BLOOD SPECIMEN / Unknown Venipuncture / Unknown 07/29/2024 2:03 PM EST 07/29/2024 2:14 PM EST Vahe Marvin MD CHEMISTRY ORDERABLES Performing Organization Address [facility] Co de Phone Number [facility] [place] [address] * Magnesium (07/29/2024 2:03 PM EST) Magnesium 0.70 0.69 - 1.07 mMol/L 07/29/2024 2:52 PM EST [facility] Blood VENOUS BLOOD SPECIMEN / Unknown Venipuncture / Unknown 07/29/2024 2:03 PM EST 07/29/2024 2:14 PM EST Vahe Marvin MD CHEMISTRY ORDERABLES Performing Organization Address [facility] Co de Phone Number [facility] [place] [address] * (ABNORMAL) Comprehensive metabolic panel (07/29/2024 2:03 [...] MD CHEMISTRY ORDERABLES [facility] [place] [address] * (ABNORMAL) Troponin - Single (07/29/2024 2:03 [...] troponin value can be found in the [facility] Test Catalog Troponin - https://[facility]-.testcatalog.org/catalogs/565/files/06932 Reference: Fourth [place] Definition of Myocardial Infarction. Journal of the [place] College of Cardiology 2018;72:0221-8271 Blood VENOUS BLOOD SPECIMEN / Unknown Venipuncture / Unknown 07/29/2024 2:03 PM EST 07/29/2024 2:14 PM EST Vahe Marvin MD CHEMISTRY ORDERABLES [facility] [place] [address] * (ABNORMAL) Blood Gas, Venous POC (07/29/2024 [...] Address [facility]/State/[facility] Co de Phone Number [facility] [place] [address] * CARDIAC CATHETERIZATION (07/29/2024 1:20 PM EST) Anatomical Region Laterality Modality Other Narrative 07/29/2024 2:02 PM EST ?[facility] ? Cardiac Catheterization/Intervention Report ? Patient Name: Korey Montoya Kyrie. ? Procedure Date: 07/29/2024 ? A #: [id number] ? Primary Physician: Vahe Marvin ? Case #: [id number] ? File Name: [id number] ? Catheterization Order Number: [id number] ? [facility] ? Final Report [place], [place] ? Patient Name: ? Korey Mittal. Jan ?ID#: ?[id number] ? : ?1950 ? Procedure Date: ? [...] procedure was Emergent. The indication for ?the catheterization laboratory technician visit is ACS less than [...] 3.5 guiding catheter and a 3.5 Fr [facility] [address] ??20 Mhz using ?Manual pullback. ??Imaging [...] ? A premounted 3.00 x 22 mm Cerulean Terry (LOW) was deployed ? with a maximum [...] atmospheres. ??A premounted 3.00 x 08 mm Cerulean Terry (LOW) ? was deployed with a maximum [...] dose administered prior to arrival in the catheterization laboratory technician. ?Recommended anti-platelet/anti-thrombotic regimen: ?Start aspirin [...] able ?to start weaning his inotropes/vasopressors. A [place] Colette catheter was ?placed demonstrating improvement in his hemodynamics and the impella site ?was perclosed and hemostatic gauze was applied with excellent result. ?WIll transfer to the [facility] for further management. ?The attending physician was present for the entire procedure. ?Dr. Vahe Marvin M.D. was present during the moderate sedation ?intraservice time as documented by the sedation nurse. ??Case time = 01:26. ?Dr. Vahe Mravin M.D. performed the coronary angiography, left heart ?catheterization, IVUS # coronary, stent insertion-coronary, oximetry, ABG, ?transthoracic echo , ventricular assist device insertion, right heart ?catheterization, [place] (flow directed cath) insertion, access site ?angiography, vascular ultrasound, venous line / sheath insert and vascular ?closure device. ? Vahe S Shavonne, M.D. ? Electronically Signed by: Vahe S Shavonne, M.D. ? Report Finalized: 07/29/2024 ??13:55 ? Report Last Ammended: 09/20/2024 ??15:21 ? Procedure Note Vahe Marvin MD - 09/20/2024 [facility] Cardiac Catheterization/Intervention Report Patient Name: Korey Montoya Procedure Date: 07/29/2024 A #: [id number] Primary Physician: Vahe Marvin Case #: [id number] File Name: [id number] Catheterization Order Number: [id number] [facility] FinalReport [place], [place] Patient Name: Korey Montoya ID#:[id number] :1950 Procedure Date: July 29, 2024 Case [...] diagnostic procedure was Emergent. Theindication for the catheterization laboratory technician visit is ACS less than [...] 3.5 guiding catheter and a 3.5 Fr [facility] [address] 20 Mhzusing Manual pullback. Imaging was [...] The lesion was predilated with a 2.00mm [id number] MM balloon with a maximum inflation pressure of 12atmospheres. A premounted 3.00 x 22 mm Cerulean Terry (LOW) wasdeployed with a maximum inflation pressure [...] atmospheres. A premounted 3.00 x 08 mm Cerulean Terry(LOW) was deployed with a maximum inflation pressure [...] dose administered prior to arrival in the catheterization laboratory technician. Recommended anti-platelet/anti-thrombotic regimen: Start aspirin [...] wereable to start weaning his inotropes/vasopressors. A [place] Colette catheterwas placed demonstrating improvement in his [...] ventricular assist device insertion, right heart catheterization, [place] (flow directed cath) insertion, access site angiography, vascular ultrasound, venous line / sheath insert andvascular closure device. Vahe Marvin M.D. Electronically Signed by: Vahe Marvin M.D. Report Finalized: 07/29/2024 13:55 Report Last Ammended: 09/20/2024 15:21 Vahe Marvin MD CARDIAC CATH ORDERAB LES * (ABNORMAL) BLOOD GAS, POC (07/29/2024 12:46 PM EST) Sodium, POC 139 135 - 145 mmol/L 07/30/2024 7:30 AM EST [facility] Potassium, POC 3.4(L) 3.5 - 5.0 mmol/L 07/30/2024 7:30 AM EST [facility] pH, POC 7.33(L) 7.35 - 7.45 07/30/2024 7:30 AM EST [facility] Ionized Calcium, POC 1.13(L) [...] TEST O RDERABLES [facility] [place] [address] * (ABNORMAL) BLOOD GAS, POC (07/29/2024 12:12 [...] TEST O RDERABLES [facility] [place] [address] documented in this encounter Visit Diagnoses Not [...] Routine documented in this encounter Care Teams Welding Operator Relationship Specialty Start Date End Date Yoel Artis APRN [address] [place] [address] PCP - General Internal Medicine 11/18/22 07/29/24 documented as of this encounter
--- OUTSIDE RECORDS SUMMARY | 2024-10-15 10:02 | XMS_ITS | Encounter Summary ---
Author Organization [facility] Address [facility] [place] [address] Care Team Providers Care Program Engineer Name Role Phone Yoel Artis FREDRICK Primary Care Provider [phone] Reason for Visit * Auth/Cert (Routine) Specialty Diagnoses / Procedures Referred By Theodore t Referred To Contact Diagnoses [facility] Procedures [employer] [facility] Referral ID Status Reason Start Date Expiration Date Visits Re quested Visits Authorized [id number] 1 1 Encounter Details Date Type Department Care Team (Latest Contact Info) Description 07/29/2024 6:32 PM EST - 07/29/2024 11:59 PM [facility] at [address] [phone] Arvin Becerra MD [facility] [place] [address] Discharge Disposition: Home Social History Tobacco Use Types Packs/Day Years Used Date Smoking Tobacco: Former Cigarettes Smokeless Tobacco: Never Alcohol Use Standard Drinks/Week Comments Not Currently 0 (1 standard drink = 0.6 oz pur e alcohol) [facility] Utilities Answer Date Recorded [...] time in the past 12 m [facility], were you homeless or [...] evening. 04/17/2023 08/04/2024 nitroGLYcerin (NITROLINGUAL) 400 mcg/spray [place], Non-AerosolIndications: Proctalgia fugax,Fecal smearing,Constipation, unspecified constipation type 1 spray to anus for proctalgia fugax as needed, not to exceed once daily 12 g 06/01/2023 08/04/2024 documented as of this encounter Plan of Treatment Upcoming Encounters Date Type Department Care Team (Late st Contact Info) Description 10/31/2024 9:30 AM EST Appointment Non-[place] [address] Mushtaq Murphy APRN 10/31/2024 11:00 AM EST Office Visit Cardiology at [address] [phone] Mushtaq Murphy APRN documented as of this encounter Visit Diagnoses Not on filedocumented in this encounter Care Teams Program Engineer Relationship Specialty Start Date End Date Yoel Artis APRN [address] [place] [id number] PCP - General Internal Medicine 11/18/22 07/29/24 documented as of this encounter
--- OUTSIDE RECORDS SUMMARY | 2024-10-15 10:03 | XMS_ITS | Encounter Summary ---
Author Organization [facility] Address [facility] [place] [address] Care Team Providers Care Computer Aided Design Designer Name Role Phone Yoel Artis APRN Primary Care Provider [phone] Encounter Details Date Type Department Care Team (Latest Contact Info) Description 11/30/2023 8:00 AM EDT TH Visit (TeleHealth) [place] [address] Yoel Dangelo APRN [facility] [place] [address] Proctalgia fugax; Constipation, unspecified constipation type Social [...] Bath: Sitz bath's are available in most [facility] hospital[facility]. They work by improving blood flow [...] Handout for Patients and Primary Care Providers [facility] Gastrointestinal Motility, Esophageal, and Swallowing Disorders Center What are functional bowel disorders? These are the most common type of gastrointestinal disorders in the [facility] The most common functional bowel disorder [...] what is the impact? 15-20% of general [place] population has IBS or FD or both 2nd most common cause for lost work days (after common cold) in [place] Estimated $30 billion dollar cost to [place] economy per year These disorders can have [...] to you primary care provider and/or local gutter mouth cutter and share this document. Treatment of functional [...] - this approach benefits most patients OTC (uqih-lnv-ckelrzb) medications can be used for ongoing bothersome symptoms as listed below Your provider (PCP or local Gastroenterology provider or [facility] Gastroenterology provider) may decide to use prescription [...] All-Bran psyllium buds, Metamucil, Konsyl, bulk psyllium ([employer] stores and [employer] stores) Specifically we recommend starting Metamucil or [...] but convincing medical evidence is still lacking Szrm-vtb-zqhkjrl supplements including probiotics are not typically evaluated [...] to decrease antibiotic-associated diarrhea and antibiotic-related infections Hwnk-fri-Xtlmpou Medications for Functional Gut Disorders Based on [...] (GERD) Often a combination of anti-nausea medications (qxsm-jqj-yhyujyy or prescription) works better thanhigh doses of [...] for misuse/misinterpretation of this information Patient Resources [place] [employer] https://www.gastro.org/practice-guidance/xr-yvsgfjp-thhbiq/ topic/pkhlbcfju-qwtgl-fythypse-ibs Badgut.org https://badgut.org/information-centre/k-g-eeduzypzs-topics/ibs/ AboutIBS.org https://www.aboutibs.org/ Uptodate.com https://www.uptodate.com/contents/pcadvonnb-ctqzb-ytevhfrz-pnswav-aqt-ckgavk documented in this encounter Progress Notes * [...] Take by mouth. nitroGLYcerin (NITROLINGUAL) 400 mcg/spray [place], Non-Aerosol 1 spray to anus for proctalgia fugax as needed, not to exceed once daily 12 g 0 No facility-administered medications prior to visit. Allergies: has No Known Allergies. Past Medical History: has a past medical history of ADHD, HLD (hyperlipidemia), HTN (hypertension),and Tremor. Past Surgical History: has a past surgical history that includes Hand surgery and Colonoscopy, Antonieta Pfeiffer ([id number]) (N/A, 08/30/2023). Family History: family history is [...] for re-evaluation. The patient was located in [place] at the time of their visit. Yoel Dangelo APRN [facility] [place] [phone] documented in this encounter Miscellaneous Notes * Addendum Note - Yoel Dangelo APRN - 11/30/2023 8:00 AM EDTAddended by: YOEL DANGELO on: 11/30/2023 08:46 AM Modules accepted: Level of Service documented in this encounter Plan of Treatment Upcoming Encounters Date Type Department Care Team (Late st Contact Info) Description 10/31/2024 9:30 AM EST Appointment Non[place] [address] Mushtaq Murphy APRN 10/31/2024 11:00 AM EST Office Visit Cardiology at [address] [phone] Mushtaq Murphy APRN documented as of this encounter Visit Diagnoses Diagnosis Proctalgia fugax Anal spasm Constipation, unspecified constipation type documented in this encounter Care Teams Computer Aided Design Designer Relationship Specialty Start Date End Date Yoel Artis APRN [address] [place] [address] PCP - General Internal Medicine 11/18/22 07/29/24 documented as of this encounter
--- OUTSIDE RECORDS SUMMARY | 2024-10-15 10:03 | XMS_ITS | Encounter Summary ---
[place] [address] Care Team Providers Care Auto Body Repairer Name Role Phone Yoel Artis FREDRICK Primary Care Provider [phone] Encounter Details Date Type Department Care Team (Late st Contact Info) Description 01/16/[address] [facility] [address] [place] [address] Chaparro Montana MD [address] [place] [address] Social History Tobacco Use Types Packs/Day Years [...] 9:30 AM EST Appointment Non[place] [address] Mushtaq Murphy APRN 10/31/2024 11:00 AM EST Office Visit Cardiology at [address] [address] Mushtaq Murphy, BEHAVIORAL HEALTH ASSISTANT documented as of this encounter Procedures Procedure Name Priority Date/Time Associated Diagnosis Comments XR CHEST ONE VIEW STAT 01/16/2024 4:0 4 PM EDT documented in this encounter Results * XR Chest One View (01/16/2024 4:04 PM EDT) PT CLASS E RAD ADMITDTTM [id number] RAD PT RAD INFO [id number]^Haniss henry^Chaparro RAD EXAM DESC XCXR1^XR Chest 1 View^RIS [facility] WORKSTATION ID [id number] RAD Anatomical Region Laterality Modality Chest N/A [...] have questions please contact the health home day care provider that requested your imaging first. ? Narrative [...] who have questions please contactthe health home day care provider that requested your imaging first. Electronically signed by: Alexey Winslow MD, [facility]([phone]), at 01/16/2024 4:08 PM Chaparro Montana MD IMG DX ORDERABLES documented in this encounter Visit Diagnoses Not on filedocumented in this encounter Care Teams Auto Body Repairer Relationship Specialty Start Date End Date Yoel Artis APRN [address] [place] [address] PCP - General Internal Medicine 11/18/22 07/29/24 documented as of this encounter
--- OUTSIDE RECORDS SUMMARY | 2024-10-15 10:03 | XMS_ITS | Encounter Summary ---
[place] [address] Care Team Providers Care Ripshear Operator Name Role Phone Alexia Mtz REIMBURSEMENT SPEC Primary Care Provider [phone] Encounter Details Date Type Department Care Team (Late st Contact Info) Description 06/25/2024 Lab [place] [address] Aubrey Cali MD [address] [place] [address] Pyuria Social History Tobacco Use Types Packs/Day [...] 9:30 AM EST Appointment Non-[place] [address] Mushtaq Murphy APRN 10/31/2024 11:00 AM EST Office Visit Cardiology at [address] [address] Mushtaq Murphy APRN documented as of this encounter Procedures Procedure Name Priority Date/Time Associated Diagnosis Comments URINE CULTURE Routine 06/25/2024 11:55 AM EDT Pyuria documented in this encounter Results * Urine culture (06/25/2024 11:55 AM EDT) Urine Culture No growth 06/26/2024 12:22 PM EDT [facility] Urine URINE SPECIMEN OBTAINED BY CLEAN CATCH PROCEDURE / Unknown 06/25/2024 11:55 AM EDT 06/25/2024 5:18 PM EDT Aubrey Cali MD MICROBIOLOGY - GENER AL ORDERABLES [facility] [place] [address] documented in this encounter Visit Diagnoses Diagnosis Pyuria Other nonspecific finding on examination of urine documented in this encounter Care Teams Ripshear Operator Relationship Specialty Start Date End Date Alexia Mtz APRN [address] [place] [address] PCP - General Family Medicine 07/30/24 documented as of this encounter
--- OUTSIDE RECORDS SUMMARY | 2024-10-15 10:03 | XMS_ITS | Encounter Summary ---
[place] [address] Care Team Providers Care Dry Cleaner Hand Name Role Phone Yoel Artis APRN Primary Care Provider Encounter Details Date Type Department Care Team (Late st Contact Info) Description 12/23/2022 8:20 AM EDT - 12/23/2022 11:59 PM EDT Hospital Encounter [facility] [address] [place] [address] Yoel Artis, CALENDER INSPECTOR [address] [place] [address] Discharge Disposition: Home Social History Tobacco Use [...] 9:30 AM EST Appointment Non-[place] [address] Mushtaq Murphy, FREDRICK 10/31/2024 11:00 AM EST Office Visit Cardiology at [address] [address] Mushtaq Murphy APRN documented as of this encounter Procedures Procedure Name Priority Date/Time Associated Diagnosis Comments PSA SCREEN Routine 12/23/2022 8:43 AM EDT documented in this encounter Results * (ABNORMAL) PSA Screen (12/23/2022 8:43 AM EDT) PSA Screen 4.37(H) 0.00 - 4.00 ng/mL [facility] Comment: PLEASE NOTE: The above [...] Artis APRN CHEMISTRY ORDERABLES Performing Organization Address City/State/[facility] Co de Phone Number [facility] [place] [address] documented in this encounter Visit Diagnoses Not on filedocumented in this encounter Care Teams Dry Cleaner Hand Relationship Specialty Start Date End Date Yoel Artis APRN [address] [place] [address] PCP - General Internal Medicine 11/18/22 07/29/24 documented as of this encounter
--- OUTSIDE RECORDS SUMMARY | 2024-10-15 10:03 | XMS_ITS | Encounter Summary ---
Author Organization [facility] [place] [address] Care Team Providers Care Clearance Rep Name Role Phone Yoel Artis Ute ALCALA Primary Care Provider [phone] Encounter Details Date Type Department Care Team (Late st Contact Info) Description 07/29/2024 Interpretation Only [facility] [address] [place] [phone] Chaparro Montana MD [address] [place] [address] Social History Tobacco Use Types Packs/Day Years Used Date Smoking Tobacco: Former Cigarettes Smokeless Tobacco: Never Alcohol Use Standard Drinks/Week Comments Not Currently 0 (1 standard drink = 0.6 oz pur e alcohol) [facility] Utilities Answer Date Recorded In the past 12 months has [employer], gas, oil, or water [employer] threatened to shut off services in your [...] 9:30 AM EST Appointment Non-[place] [address] Mushtaq Murphy, COMPUTER NETWORK SUPPORT SPECIALIST 10/31/2024 11:00 AM EST Office Visit Cardiology at [address] [address] Mushtaq Murphy, COMPUTER NETWORK SUPPORT SPECIALIST documented as of this encounter Procedures Procedure Name Priority Date/Time Associated Diagnosis Comments XR CHEST ONE VIEW STAT 07/29/2024 10: 50 AM EST documented in this encounter Results * XR Chest One View (07/29/2024 10:50 AM EST) PT CLASS E RAD ADMITDTTM [id number] RAD PT RAD MD INFO [id number]^Jordy figueroa^Chaparro RAD EXAM DESC XCXR1^XR Chest 1 [...] information associate that requested your imaging first. Chaparro Montana MD IMG DX ORDERABLES documented in this encounter Visit Diagnoses Not on filedocumented in this encounter Care Teams Clearance Rep Relationship Specialty Start Date End Date Yoel Artis APRN [address] [place] [address] PCP - General Internal Medicine 11/18/22 07/29/24 documented as of this encounter
--- OUTSIDE RECORDS SUMMARY | 2024-10-15 10:03 | XMS_ITS | Encounter Summary ---
Author Organization [facility] Address [facility] [place] [address] Care Team Providers Care Brick Cleaner Name Role Phone Yoel Artis FREDRICK Primary Care Provider [phone] Encounter Details Date Type Department Care Team (Late st Contact Info) Description 07/29/2024 [place] [phone] Ivan Hernandez MD [facility] [place] [address] Social History Tobacco Use Types Packs/Day Years Used Date Smoking Tobacco: Former Cigarettes Smokeless Tobacco: Never Alcohol Use Standard Drinks/Week Comments Not Currently 0 (1 standard drink = 0.6 oz pur e alcohol) [facility] Utilities Answer Date Recorded In the past 12 months has e [employer], gas, oil, or water [employer] threatened to shut off services in your [...] 9:50 AM Hospital to which patient presented: [facility] If Hospital to which patient presented[facility] ED Walk In Medical History (prior to [...] Unfractionated Heparin Plan STEMI Alert called: Yes Dray Truck Driver Activated by: Vein Pumper Initial Disposition: Admit Dray Truck Driver documented in this encounter Plan of Treatment Upcoming Encounters Date Type Department Care Team (Late st Contact Info) Description 10/31/2024 9:30 AM EST Appointment Non[place] [address] Mushtaq Murphy APRN 10/31/2024 11:00 AM EST Office Visit Cardiology at [address] [address] Mushtaq Murphy APRN documented as of this encounter Visit Diagnoses Not on filedocumented in this encounter Care Teams Brick Cleaner Relationship Specialty Start Date End Date Yoel Artis APRN [address] [place] [address] PCP - General Internal Medicine 11/18/22 07/29/24 documented as of this encounter
--- OUTSIDE RECORDS SUMMARY | 2024-10-15 10:03 | XMS_ITS | Encounter Summary ---
[place] [address] Care Team Providers Care Nuclear Engineer Name Role Phone Anibal Mtz MD Primary Care Provider [phone] Encounter Details Date Type Department Care Team (Late st Contact Info) Description 01/18/2019 3:00 PM EDT Interpretation Only Cardiology at [address] [phone] Alberto Powell Jr., MD Dizziness Social History [...] 9:30 AM EST Appointment Non-[place] [address] Mushtaq Murphy APRN 10/31/2024 11:00 AM EST Office Visit Cardiology at [address] [address] Mushtaq Murphy, FREDRICK documented as [...] giddiness documented in this encounter Care Teams Nuclear Engineer Relationship Specialty Start Date End Date Anibal Mtz MD [address] [place] [address] PCP - General Family Medicine 01/17/19 11/17/22 documented as of this encounter
--- OUTSIDE RECORDS SUMMARY | 2024-10-15 10:03 | XMS_ITS | Encounter Summary ---
[place] [address] Care Team Providers Care Cardio Tech Name Role Phone Yoel Artis APRN Primary Care Provider [phone] Reason for Referral * Consultation (Routine) - Closed Specialty Diagnoses / Procedures Referred By Theodore muro Referred To Contact Gastroenterology Diagnoses Anal spasm motility- anal spasms Yoel Artis APRN [address] [place] [address] [facility] [address] [place] [address] Referral ID Status Reason Start Date Expiration Date V isits Requested Visits Authorized [id number] Closed Consult, Test & Treat PCP Updated and/or Approved 11/18/2022 11/18/2023 6 6 Encounter Details Date Type Department Care Team (Late st Contact Info) Description 11/18/2022 Transcribe Orders eDH Incoming Referrals [phone] Yoel Artis APRN [address] [place] [address] Anal spasm Social [...] 9:30 AM EST Appointment Non-Invasive [place] [address] Mushtaq Murphy, FREDRICK 10/31/2024 11:00 AM EST Office Visit Cardiology at [address] [address] Mushtaq Murphy, BRAZER HELPER INDUCTION Scheduled Referrals Name Type Priority Associated Diagnoses Order Schedule Referral to Gastroenterology Outpatient Referral Routine Anal spasm Ordered: 11/18/2022 documented as of this encounter Visit Diagnoses Diagnosis Anal spasm documented in this encounter Care Teams Cardio Tech Relationship Specialty Start Date End Date Yoel Artis APRN [address] [place] [address] PCP - General Internal Medicine 11/18/22 07/29/24 documented as of this encounter
--- OUTSIDE RECORDS SUMMARY | 2024-10-15 10:03 | XMS_ITS | Encounter Summary ---
[place] [address] Care Team Providers Care Chief Architect Name Role Phone Unknown Primary Care Provider Unavailabl e Encounter Details Date Type Department Care Team (Late st Contact Info) Description 12/03/2018 Interpretation Only [address] [phone] Ac Albrecht PA [address] [place] [address] [place] [address] Social History Tobacco Use Types Packs/Day Years [...] 9:30 AM EST Appointment Non[place] [address] Mushtaq Murphy APRN 10/31/2024 11:00 AM EST Office Visit Cardiology at [address] [address] Mushtaq Murphy APRN documented as [...] on filedocumented in this encounter Care Teams Chief Architect Relationship Specialty Start Date End Date Unknown None PCP - General 08/04/10 01/16/19 documented as of this encounter
--- OUTSIDE RECORDS SUMMARY | 2024-10-15 10:03 | XMS_ITS | Encounter Summary ---
[place] [address] Care Team Providers Care Extension Clerk Name Role Phone Yoel Artis FREDRICK Primary Care Provider [phone] Encounter Details Date Type Department Care Team (Late st Contact Info) Description 08/26/2023 Telephone [place] [address] Madelyn Vasquez Social History Tobacco Use Types [...] - 08/26/2023 9:23 AM EST Korey Montoya [id number] Diagnosis/Indication: Rectal pain, fecal smearing Please review [...] ever had a/an Colonoscopy before? Yes: Date [id number] ago [facility] If yes, did you [...] your procedure. 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 Please Verify the height [...] 9:30 AM EST Appointment Non-Invasive [place] [address] Mushtaq Murphy APRN 10/31/2024 11:00 AM EST Office Visit Cardiology at [address] [phone] Mushtaq Murphy, FREDRICK documented as of this encounter Visit Diagnoses Not on filedocumented in this encounter Care Teams Extension Clerk Relationship Specialty Start Date End Date Yoel Artis APRN [address] [place] [address] PCP - General Internal Medicine 11/18/22 07/29/24 documented as of this encounter
--- OUTSIDE RECORDS SUMMARY | 2024-10-15 10:03 | XMS_ITS | Encounter Summary ---
[place] [address] Care Team Providers Care Legal Recruiter Name Role Phone Yoel Artis FREDRICK Primary Care Provider [phone] Reason for Visit * Auth/Cert (Routine) Specialty Diagnoses / Procedures Referred By Theodore t Referred To Contact Diagnoses Anal spasm Fecal smearing Constipation, unspecified Rectal pain, fecal smearing Procedures PRO COLONOSCOPY, DIAGNOSTIC PRO COLONOSCOPY, BIOPSY PRO COLONOSCOPY, REMV LESN, SNARE COLONOSCOPY, DIAGNOSTIC (WRVU 3.26) Brandan Mcgovern MD [facility] [place] [address] [facility] Referral ID Status Reason Start Date Expiration Date Visits Re quested Visits Authorized [id number] 1 1 Encounter Details Date Type Department Care Team (Late st Contact Info) Description 08/30/2023 11:00 AM EST - 08/30/2023 12:00 PM EST Surgery [place] [address] Brandan Mcgovern MD [facility] [place] [address] COLONOSCOPY, POLYPECTOMY, REMOVAL LESION BY SNARE (WRVU [...] occurs, please contact your Doctor. Please call [phone] before 8pm Mon-Fri with problems, questions or concerns. If you call after 8pm or on weekends, call the Hospital at [phone] and ask to speak to the Calf Skinner peritoneal dialysis registered nurse and the inverted block operator will contact that person for you. When should you call for help? Call 710 anytime you think you may need emergency [...] any problems. Where can you learn more? [facility] View your After Visit Summary and more online at [email or web address] If you would like to provide feedback about your hospital experience, please call the Office of Patient and Family Relations at . If you have received this After Visit Summary in error, please immediately return it in person to the department, or notify the [facility] Privacy Office by calling toll free at between the hours of 8AM and 5PM to arrange for our retrieval of the documents at no cost to you. Content Version: 12.2 ?? [id number] [employer]. Care instructions adapted under license by [facility]. If you have questions about a medical condition or this instruction, always ask your healthcare professional. [employer] disclaims any warranty or liability for your [...] evening. 04/17/2023 08/04/2024 nitroGLYcerin (NITROLINGUAL) 400 mcg/spray [place], Non-AerosolIndications:P roctalgia fugax,Fecal smearing,Constipation, unspecified constipation type [...] 9:30 AM EST Appointment Non-Invasive [place] [address] Mushtaq Murphy APRN 10/31/2024 11:00 AM EST Office Visit Cardiology at [address] [phone] Mushtaq Murphy APRN documented as of this encounter Procedures Procedure Name Priority Date/Time Associated Diagnosis Comments SPECIMEN TO PATHOLOGY Routine 08/30/2023 11:23 AM EST SURGICAL PATHOLOGY REPORT Routine 08/30/2023 11:21 AM EST COLONOSCOPY Routine 08/30/2023 10:57 AM EST Colonoscopy, Antonieta Valadez ([id number]) 08/30/2023 10:44 AM EST Proctalgia fugax Fecal smearing Constipation, unspecified constipation type documented in this encounter Results * Specimen to Pathology (08/30/2023 11:23 AM EST) AP Specimen 08/30/2023 11:2 3 AM EST 08/30/2023 11:23 AM EST Narrative [facility] - 08/30/2023 11:23 AM EST Specimen requisition ordered. ??Separate Pathology report to follow Brandan Mcgovern MD PATHOLOGY/CYTOLOGY O RDERASHAY [facility] [place] [address] * Surgical Pathology Report (08/30/2023 11:21 AM EST) Final Diagnosis [id number] ? Location: 4T; EA12; A The signing pathologist has (i) examined the relevant preparation(s) for the specimen(s) and (ii) rendered or confirmed the diagnosis(es). . ?Surgical Pathology DIAGNOSIS A - Sigmoid colon polyp, resection (Multiple): - ??Tubular adenoma. CR-PX Electronically signed by: ?Blake ORTEGA PhD, Yulia Verified: ??09/08/2023 14:48 ??Pathologist Performed at: ??-[facility] Dept. of Pathology, [place] [address] Internal Revenue Service Agent: Fercho Chan MD, AP, ??CLIA Certificate: [id number] SPECIMEN(S) SUBMITTED A - Sigmoid colon polyp, [...] EST Brandan Mcgovern MD PATHOLOGY/CYTOLOGY Veronica MORENO [facility] [place] [address] [facility] [place] [address] * COLONOSCOPY (08/30/2023 10:57 AM EST) COLONOSCOPY [facility] Endoscopy Procedure Date: 08/30/2023 10:57 AM ? Patient Name: Korey Montoya ? Date of : 1950 ? Age: 73 ? Order #: [id number] ? Instrument Name: [id number] ? Procedure: ? Colonoscopy Indications: ? Rectal [...] preparation was evaluated ? using the BBPS ([place] Bowel ? Preparation Scale) with scores of: [...] RN) documented in this encounter Care Teams Legal Recruiter Relationship Specialty Start Date End Date Yoel Artis APRN [address] [place] [address] PCP - General Internal Medicine 11/18/22 07/29/24 documented as of this encounter
--- OUTSIDE RECORDS SUMMARY | 2024-10-15 10:03 | XMS_ITS | Encounter Summary ---
[place] [address] Care Team Providers Care State Pilot Name Role Phone Yoel Artis APRN Primary Care Provider [phone] Reason for Referral * Consultation (Routine) - Closed Specialty Diagnoses / Procedures Referred By Theodore muro Referred To Contact Gastroenterology Diagnoses Anal spasm anal spasm Yoel Artis APRN [address] [place] [address] [facility] [place] [address] Referral ID Status Reason Start Date Expiration Date V isits Requested Visits Authorized [id number] Closed Consult, Test & Treat PCP Updated and/or Approved 05/26/2023 05/25/2024 6 6 Encounter Details Date Type Department Care Team (Late st Contact Info) Description 05/26/2023 Transcribe Orders eDH Incoming Referrals [phone] Yoel Artis APRN [address] [place] [address] Anal spasm Social History Tobacco [...] 9:30 AM EST Appointment [place] [address] Mushtaq Murphy APRN 10/31/2024 11:00 AM EST Office Visit Cardiology at [address] [address] Mushtaq Murphy, CONSTRUCTION FRAMER Scheduled Referrals Name Type Priority Associated Diagnoses Order Schedule Referral to Gastroenterology Outpatient Referral Routine Anal spasm Ordered: 05/26/2023 documented as of this encounter Visit Diagnoses Diagnosis Anal spasm documented in this encounter Care Teams State Pilot Relationship Specialty Start Date End Date Yoel Artis APRN [address] [place] [address] PCP - General Internal Medicine 11/18/22 07/29/24 documented as of this encounter
--- OUTSIDE RECORDS SUMMARY | 2024-10-15 10:03 | XMS_ITS | Encounter Summary ---
[place] [address] Care Team Providers Care Forming Roll Operator Name Role Phone Anibal Mtz MD Primary Care Provider [phone] Encounter Details Date Type Department Care Team (Late st Contact Info) Description 11/08/2022 [facility] Only [address] [address] Eve Frost MD [address] [place] [phone] Social History Tobacco Use Types Packs/Day Years [...] 9:30 AM EST Appointment Non-Invasive [place] [address] Mushtaq Murphy APRN 10/31/2024 11:00 AM EST Office Visit Cardiology at [address] [address] Mushtaq Murphy, MEDICAL ASSISTANT OB GYN documented as of this encounter Procedures Procedure Name Priority Date/Time Associated Diagnosis Comments XR CHEST PA AND LATERAL STAT 11/08/2022 10:34 AM EST documented in this encounter Results * XR Chest PA & Lateral (Generic) (11/08/2022 10:34 AM EST) PT CLASS E DH RAD ADMITDTTM RAD PT RAD INFO [id number]^C HANDER^SUNEE R RAD EXAM DESC XCXR2^XR CHEST [...] unit nurse that requested your imaging first. Eve Frost MD IMG DX ORDERABLES documented in this encounter Visit Diagnoses Not on filedocumented in this encounter Care Teams Forming Roll Operator Relationship Specialty Start Date End Date Anibal Mtz MD [address] [place] [address] PCP - General Family Medicine 01/17/19 11/17/22 documented as of this encounter
--- OUTSIDE RECORDS SUMMARY | 2024-10-15 10:03 | XMS_ITS | Encounter Summary ---
[place] [address] Care Team Providers Care Venue Coordinator Name Role Phone Yoel Artis APRN Primary Care Provider Encounter Details Date Type Department Care Team (Late st Contact Info) Description 03/01/2023 9:30 AM EDT - 03/01/2023 11:59 PM EDT Hospital Encounter [facility] Lab [address] [place] [address] Yoel Artis, GARBAGE TRUCK DISPATCHER [address] [place] [address] Discharge Disposition: Home Social History Tobacco Use [...] 9:30 AM EST Appointment Non-Invasive [place] [address] Mushtaq Murphy, FREDRICK 10/31/2024 11:00 AM EST Office Visit Cardiology at [address] [address] Mushtaq Murphy APRN documented as of this encounter Procedures Procedure Name Priority Date/Time Associated Diagnosis Comments PSA (ULTRASENSITIVE) Routine 03/01/2023 9:38 AM EDT documented in this encounter Results * (ABNORMAL) PSA (Ultrasensitive) (03/01/2023 9:38 AM EDT) Prostate Specific Antigen (Ultrasensitive) 5.09(H) 0.00 - 4.00 ng/mL [facility] Comment: PLEASE NOTE: The above reference [...] In Lab Yoel Artis APRN CHEMISTRY ORDERABLES [facility] [place] [address] documented in this encounter Visit Diagnoses Not on filedocumented in this encounter Care Teams Venue Coordinator Relationship Specialty Start Date End Date Yoel Artis APRN [address] [place] [address] PCP - General Internal Medicine 11/18/22 07/29/24 documented as of this encounter
--- OUTSIDE RECORDS SUMMARY | 2024-10-15 10:03 | XMS_ITS | Encounter Summary ---
[place] [address] Care Team Providers Care Digital Media Producer Name Role Phone Alexia Mtz APPLICATION ANALYST Primary Care Provider [phone] Encounter Details Date Type Department Care Team (Late st Contact Info) Description 04/23/2024 Lab [place] [phone] Alexia Mtz, APPLICATION ANALYST [address] [place] [address] Elevated prostate specific antigen (PSA) Social History [...] 9:30 AM EST Appointment Non-[place] [phone] Mushtaq Murphy, APPLICATION ANALYST 10/31/2024 11:00 AM EST Office Visit Cardiology at [address] [address] Mushtaq Murphy, FREDRICK documented as of this encounter Procedures Procedure Name Priority Date/Time Associated Diagnosis Comments PSA (ULTRASENSITIVE), TOTAL AND FREE Routine 04/23/2024 1:09 PM EDT Elevated prostate specific antigen (PSA) documented in this encounter Results * (ABNORMAL) PSA (Ultrasensitive), total and free (04/23/2024 1:09 PM EDT) Prostate Specific Antigen (Ultrasensitive) 5.24(H) 0.00-4.00 ng/mL ng/ml 04/23/2024 5:18 PM EDT [facility] Comment:The reference interv al (0 - 4 ng/mL) is applicable to individuals with an intact prostate. Values within this reference interval may indicate recurrence in those who have undergone radical prostatectomy. This result was generated using a Bubble & Balm Osiel immunoassay. Results obtained from other methods or manufacturers cannot be used interchangeably with this method. Prostate Specific Antigen, Free 1.1 ng/ml 04/23/2024 5:18 PM EDT [facility] Comment:This result was gene rated using a Bubble & Balm Osiel immunoassay. Results obtained from other methods or manufacturers cannot be used interchangeably with this method. PSA % Free 21 % 04/23/2024 5:18 PM EDT [facility] Comment: Probability of finding FURNITURE FINISHER HELPER on needle biopsy by age in years: [...] EDT 04/23/2024 4:50 PM EDT Alexia Mtz APPLICATION ANALYST CHEMISTRY ORDERABLES Performing Organization Address City/State/[facility] Co de Phone Number [facility] [place] [address] documented in this encounter Visit Diagnoses Diagnosis Elevated prostate specific antigen (PSA) documented in this encounter Care Teams Digital Media Producer Relationship Specialty Start Date End Date Alexia Mtz, FREDRICK [address] [place] [address] PCP - General Family Medicine 07/30/24 documented as of this encounter
--- OUTSIDE RECORDS SUMMARY | 2024-10-15 10:03 | XMS_ITS | Encounter Summary ---
Author Organization [facility] [place] [address] Care Team Providers Care Logistics Planning Manager Name Role Phone Yoel Artis Ute ALCALA Primary Care Provider [phone] Reason for Visit * Auth/Cert (Routine) Specialty Diagnoses / Procedures Referred By Theodore t Referred To Contact Diagnoses Anal spasm Fecal smearing Constipation, unspecified Rectal pain, fecal smearing Procedures PRO COLONOSCOPY, DIAGNOSTIC PRO COLONOSCOPY, BIOPSY PRO COLONOSCOPY, REMV LESN, SNARE COLONOSCOPY, DIAGNOSTIC (WRVU 3.26) Brandan Mcgovern MD [facility] [place] [address] [facility] Referral ID Status Reason Start Date Expiration Date Visits Re quested Visits Authorized [id number] 1 1 Encounter Details Date Type Department Care Team (Latest Contact Info) Description 08/30/2023 10:09 AM EST - 08/30/2023 12:19 PM [facility] Hospital Encounter [place] [address] Brandan Mcgovern MD [facility] [place] [address] Discharge Disposition: Home Social History Tobacco Use [...] occurs, please contact your Doctor. Please call [phone] before 8pm Mon-Fri with problems, questions or concerns. If you call after 8pm or on weekends, call the Hospital at [phone] and ask to speak to the Adhesive Bonding Machine Operator information director and the pitting machine operator will contact that person for you. When should you call for help? Call [phone] anytime you think you may need emergency [...] any problems. Where can you learn more? [facility] View your After Visit Summary and more online at [email or web address] If you would like to provide feedback about your hospital experience, please call the Office of Patient and Family Relations at . If you have received this After Visit Summary in error, please immediately return it in person to the department, or notify the [facility] Privacy Office by calling toll free at between the hours of 8AM and 5PM to arrange for our retrieval of the documents at no cost to you. Content Version: 12.2 ?? [id number] [employer]. Care instructions adapted under license by [facility]. If you have questions about a medical condition or this instruction, always ask your healthcare professional. [employer] disclaims any warranty or liability for your [...] evening. 04/17/2023 08/04/2024 nitroGLYcerin (NITROLINGUAL) 400 mcg/spray [place], Non-AerosolIndications:P roctalgia fugax,Fecal smearing,Constipation, unspecified constipation type [...] 9:30 AM EST Appointment [place] [phone] Mushtaq Murphy APRN 10/31/2024 11:00 AM EST Office Visit Cardiology at [address] [address] Mushtaq Murphy APRN documented as of this encounter Procedures Procedure Name Priority Date/Time Associated Diagnosis Comments SPECIMEN TO PATHOLOGY Routine 08/30/2023 11:23 AM EST SURGICAL PATHOLOGY REPORT Routine 08/30/2023 11:21 AM EST COLONOSCOPY Routine 08/30/2023 10:57 AM EST Colonoscopy, Antonieta Valadez ([id number]) 08/30/2023 10:44 AM EST Proctalgia fugax Fecal smearing Constipation, unspecified constipation type documented in this encounter Results * Specimen to Pathology (08/30/2023 11:23 AM EST) AP Specimen 08/30/2023 11:2 3 AM EST 08/30/2023 11:23 AM EST Narrative [facility] - 08/30/2023 11:23 AM EST Specimen requisition ordered. ??Separate Pathology report to follow Brandan Mcgovern MD PATHOLOGY/CYTOLOGY O RDERASHAY [facility] [place] [address] * Surgical Pathology Report (08/30/2023 11:21 AM EST) Final Diagnosis [id number] ? Location: 4T; EA12; A The signing pathologist has (i) examined the relevant preparation(s) for the specimen(s) and (ii) rendered or confirmed the diagnosis(es). . ?Surgical Pathology DIAGNOSIS A - Sigmoid colon polyp, resection (Multiple): - ??Tubular adenoma. CR-PX Electronically signed by: ?Blake ORTEGA PhD, Yulia Verified: ??09/08/2023 14:48 ??Pathologist Performed at: ??-[facility] Dept. of Pathology, [place] [address] Department Traffic Freight Router: Fercho Chan MD, FCAP, ??CLIA Certificate: [id number] SPECIMEN(S) SUBMITTED A - Sigmoid colon polyp, resection (Multiple) CLINICAL INFORMATION 73-year-old male, history of rectal pain SPECIMEN PROCESSING A - Labeled/Fixativ e: Sigmoid colon polyp, formalin. Quantity/Size: Single, 0.8 cm. Tissue Description: Soft, candelaria tissue. Sections/Proces sing: Submitted in toto ??in 1 cassette labeled A1. ??sdy 09/08/2023 2:48 PM EST [facility] GI Biopsy 08/30/2023 11:2 1 AM EST 08/30/2023 11:21 AM EST Brandan Mcgovern MD PATHOLOGY/CYTOLOGY Veronica RDCLAIREBLES [facility] [place] [place] [address] [facility] [place] [address] * COLONOSCOPY (08/30/2023 10:57 AM EST) COLONOSCOPY [facility] Endoscopy Procedure Date: 08/30/2023 10:57 AM ? Patient Name: Korey Montoya ? N: [id number] ? Date of : 1950 ? Age: 73 ? Order #: [id number] ? Instrument Name: [id number] ? Procedure: ? Colonoscopy Indications: ? Rectal [...] preparation was evaluated ? using the BBPS ([place] Bowel ? Preparation Scale) with scores of: [...] RN) documented in this encounter Care Teams Logistics Planning Manager Relationship Specialty Start Date End Date Yoel Artis APRN [address] [place] [address] PCP - General Internal Medicine 11/18/22 07/29/24 documented as of this encounter
--- OUTSIDE RECORDS SUMMARY | 2024-10-15 10:03 | XMS_ITS | Encounter Summary ---
Author Organization [facility] [place] [address] Care Team Providers Care Weight Caller Name Role Phone Unknown Primary Care Provider Unavailabl e Encounter Details Date Type Department Care Team (Late st Contact Info) Description 01/13/2019 9:05 PM EDT Ancillary Procedure Radiology Library at [facility] [place] [phone] Sunny Aviles MD [facility] [place] [address] Social History Tobacco Use Types Packs/Day Years [...] 9:30 AM EST Appointment Non[place] [address] Mushtaq Murphy APRN 10/31/2024 11:00 AM EST Office Visit Cardiology at [address] [address] Mushtaq Murphy, FREDRICK documented as [...] IMG FILM LIBRARY ORDERABLES Performing Organization Address City/State/[facility] Co de Phone Number [place], [place] documented in this encounter Visit Diagnoses Not on filedocumented in this encounter Care Teams Weight Caller Relationship Specialty Start Date End Date Unknown None PCP - General 08/04/10 01/16/19 documented as of this encounter
--- OUTSIDE RECORDS SUMMARY | 2024-10-15 10:03 | XMS_ITS | Encounter Summary ---
[place] [address] Care Team Providers Care Film Drying Machine Operator Name Role Phone Yoel Artis FREDRICK Primary Care Provider [phone] Encounter Details Date Type Department Care Team (Late st Contact Info) Description 01/16/2024 Interpretation Only [facility] [address] [place] [address] Chaparro Montana MD [address] [place] [address] Social History Tobacco Use Types Packs/Day Years [...] 9:30 AM EST Appointment Non-[place]vasive [place] [address] Mushtaq Murphy APRN 10/31/2024 11:00 AM EST Office Visit Cardiology at [address] [address] Mushtaq Murphy, PRECAST CONCRETE IRONWORKER documented as of this encounter Procedures Procedure Name Priority Date/Time Associated Diagnosis Comments CT HEAD WO CONTRAST (GENERIC) STAT 01/16/2024 4:17 PM EDT documented in this encounter Results * CT Head wo Contrast (Generic) (01/16/2024 4:17 PM EDT) PT CLASS E RAD ADMITDTTM [id number] RAD PT RAD MD INFO [id number]^Haniss henry^Chaparro RAD EXAM DESC CTHEAD^CT Head w/o [...] who have questions please contact the health insurance healthcare consultant that requested your imaging first. ? Electronically signed by: Alejandro Tenorio MD, [facility] ([phone]), at 01/16/2024 4:25 PM Narrative 01/16/2024 4:25 [...] patients who have questions please contactthe health insurance healthcare consultant that requested your imaging first. Electronically signed by: Alejandro Tenorio MD, [facility]([phone]), at 01/16/2024 4:25 PM Chaparro Montana MD IMG CT ORDERABLES documented in this encounter Visit Diagnoses Not on filedocumented in this encounter Care Teams Film Drying Machine Operator Relationship Specialty Start Date End Date Yoel Artis APRN [address] [place] [address] PCP - General Internal Medicine 11/18/22 07/29/24 documented as of this encounter
--- OUTSIDE RECORDS SUMMARY | 2024-10-15 10:03 | XMS_ITS | Encounter Summary ---
[place] [address] Care Team Providers Care Manager Market Research Name Role Phone Yoel Artis FREDRICK Primary Care Provider Encounter Details Date Type Department Care Team (Late st Contact Info) Description 07/28/2024 Interpretation Only [address] [phone] Quinten Coffey MD [address] [place] [address] Social History Tobacco Use Types Packs/Day Years [...] 9:30 AM EST Appointment Non[place] [address] Mushtaq Murphy APRN 10/31/2024 11:00 AM EST Office Visit Cardiology at [address] [address] Mushtaq Murphy, FORK TRUCK DRIVER documented as of this encounter Procedures Procedure Name Priority Date/Time Associated Diagnosis Comments XR CHEST ONE VIEW STAT 07/28/2024 10: 22 AM EST documented in this encounter Results * XR Chest One View (07/28/2024 10:22 AM EST) PT CLASS E RAD ADMITDTTM [id number] RAD PT RAD INFO [id number]^Potter ^Quinten RAD EXAM DESC XCXR1^XR Chest 1 View^[facility] WORKSTATION ID [id number] RAD Anatomical [...] questions please contact the health critical care physician assistant that requested your imaging first. ? Narrative [...] have questions please contactthe health critical care physician assistant that requested your imaging first. Quinten Coffey MD IMG DX ORDERABLES documented in this encounter Visit Diagnoses Not on filedocumented in this encounter Care Teams Manager Market Research Relationship Specialty Start Date End Date Yoel Artis APRN [address] [place] [address] PCP - General Internal Medicine 11/18/22 07/29/24 documented as of this encounter
--- OUTSIDE RECORDS SUMMARY | 2024-10-15 10:03 | XMS_ITS | Encounter Summary ---
Author Organization [facility] [place] [address] Care Team Providers Care Ed Teacher Name Role Phone Yoel Artis Ute ALCALA Primary Care Provider Encounter Details Date Type Department Care Team (Late st Contact Info) Description 01/16/2024 5:46 PM EDT - 01/16/2024 11:59 PM EDT Hospital Encounter [facility] [address] [place] [address] Chaparro Montana MD [address] [place] [address] Discharge Disposition: Home Social History Tobacco Use [...] evening. 04/17/2023 08/04/2024 nitroGLYcerin (NITROLINGUAL) 400 mcg/spray [place], Non-AerosolIndications:P roctalgia fugax,Fecal smearing,Constipation, unspecified constipation type 1 spray to anus for proctalgia fugax as needed, not to exceed once daily 12 g 06/01/2023 08/04/2024 documented as of this encounter Plan of Treatment Upcoming Encounters Date Type Department Care Team (Late st Contact Info) Description 10/31/2024 9:30 AM EST Appointment Non[place] [address] Mushtaq Murphy, FREDRICK 10/31/2024 11:00 AM EST Office Visit Cardiology at [address] [address] Mushtaq Murphy, FREDRICK documented as of this [...] In Lab Chaparro Montana MD MICROBIOLOGY - [facility] ORDERABLES [facility] [place] [address] documented in this encounter Visit Diagnoses Not on filedocumented in this encounter Care Teams Ed Teacher Relationship Specialty Start Date End Date Yoel Artis APRN [address] [place] [address] PCP - General Internal Medicine 11/18/22 07/29/24 documented as of this encounter
--- OUTSIDE RECORDS SUMMARY | 2024-10-15 10:03 | XMS_ITS | Encounter Summary ---
Author Organization [facility] [place] [address] Care Team Providers Care Business Education Professor Name Role Phone Yoel Artis APRN Primary Care Provider Reason for Referral * Consultation (Routine) - Closed Specialty Diagnoses / Procedures Referred By Theodore muro Referred To Contact Gastroenterology Diagnoses Proctalgia fugax Fecal smearing Constipation, unspecified constipation type group Yoel Dangelo APRN [facility] [place] [address] Paulette Glynn, PhD [facility] [place] [address] Referral ID Status Reason Start Date Expiration Date V isits Requested Visits Authorized [id number] Closed Consult, Test & Treat 06/01/2023 05/31/2024 1 1 Reason for Visit * Consultation (Routine) - Closed Specialty Diagnoses / Procedures Referred By Theodore muro Referred To Contact Gastroenterology Diagnoses Anal spasm motility- anal spasms Yoel Artis APRN [address] [place] [address] [facility] [address] [place] [address] Referral ID Status Reason Start Date Expiration Date V isits Requested Visits Authorized [id number] Closed Consult, Test & Treat PCP Updated and/or Approved 11/18/2022 11/18/2023 6 6 Encounter Details Date Type Department Care Team (Latest Contact Info) Description 06/01/2023 8:00 AM EDT TH Visit (TeleHealth) [place] [address] Yoel Dangelo, FILM SOUND COORDINATOR [facility] [place] [address] Proctalgia fugax; Fecal smearing; Constipation, unspecified constipation [...] hear from us within 1 week: Clinic [phone] Motility Lab scheduling [phone] Endoscopy scheduling- [phone] Diagnostics: -Colonoscopy for rectal pain -Anorectal manometry [...] connection and our services, please visit the [facility] Behavioral health website at: [email or web address]. Our hope is that through these classes, [...] please contact your insurance company or the [facility] billing office ([email or web address]). Your insurance company may request a CPT code if you ask about [place]. [place] [address]. If you're interested in attending any of these classes or workshops, please reach out to our scheduling team via [facility] or phone ([phone]). You should start a fiber supplement if [...] Care Providers [facility] Gastrointestinal Motility[facility] Esophageal, [facility] Swallowing [facility] What are functional bowel disorders? These are the most common type of gastrointestinal disorders in the [facility] The most common functional bowel disorder in the [facility] is irritable bowel syndrome (IBS) [...] what is the impact? 15-20% of general [place] population has IBS or FD or both 2nd most common cause for lost work days (after common cold) in [place] Estimated $30 billion dollar cost to [place] economy per year These disorders can have [...] with immediate onset of symptoms after infection); residential symptoms are expected in most patients however [...] to you primary care provider and/or local general hardware salesperson and share this document. Treatment of functional [...] - this approach benefits most patients OTC (mdrg-ewz-macgylz) medications can be used for ongoing bothersome [...] All-Bran psyllium buds, Metamucil, Konsyl, bulk psyllium (? and ProQuo stores) Specifically we recommend starting Metamucil or [...] but convincing medical evidence is still lacking Gqnm-gpi-srwroke supplements including probiotics are not typically evaluated [...] to decrease antibiotic-associated diarrhea and antibiotic-related infections Rurd-mpg-Xlnohje Medications for Functional Gut Disorders Based on [...] a stool softener that is safe for residential usage (no risk of dependency) andthe dosage [...] (GERD) Often a combination of anti-nausea medications (tyru-wtz-waswqme or prescription) works better thanhigh doses of [...] for misuse/misinterpretation of this information Patient Resources [employer] https://www.gastro.org/practice-guidance/bu-fykxtfv-recyqy/ topic/nxdzjxpxe-fcyzi-uhyaivqr-ibs Badgut.org https://badgut.org/information-centre/s-r-bhpjltyhv-topics/ibs/ AboutIBS.org https://www.aboutibs.org/ Uptodate[employer]com https://www.uptodate.com/contents/bpbjukenn-cnhcp-yyllusqw-harzuz-dbo-usqisu documented in this encounter Progress Notes * [...] loss Last colo 2017 at [facility] with no polyps. Current Regimen: Metamucil daily [...] recommendations above. The patient was located in [place] at the time of their visit. TIME SPENT WITH PATIENT Time spent reviewing records prior to this encounter on day of appointment: 2 minutes Time spent during encounter with patient including counselin minutes Time spent documenting encounter after office visit: 7 minutes Yoel Dangelo APRN [facility] [place] [address] documented in this encounter Plan of Treatment Upcoming Encounters Date Type Department Care Team (Late st Contact Info) Description 10/31/2024 9:30 AM EST Appointment Non[place] [address] Mushtaq Murphy APRN 10/31/2024 11:00 AM EST Office Visit Cardiology at [address] [address] Mushtaq Murphy APRN Scheduled Orders Name Type [...] type documented in this encounter Care Teams Business Education Professor Relationship Specialty Start Date End Date Yoel Artis APRN [address] [place] [address] PCP - General Internal Medicine 11/18/22 07/29/24 documented as of this encounter
--- OUTSIDE RECORDS SUMMARY | 2024-10-15 10:03 | XMS_ITS | Encounter Summary ---
[place] [address] Care Team Providers Care Die Machine Operator Name Role Phone Yoel Artis APRN Primary Care Provider [phone] Reason for Referral * Consultation (Routine) - Closed Specialty Diagnoses / Procedures Referred By Theodore muro Referred To Contact Urology Diagnoses Raised prostate specific antigen PERSISTENTLY MILDLY ELEVATED PSA, URINARY FREQ Yoel Artis APRN [address] [place] [address] [facility] [place] [address] Referral ID Status Reason Start Date Expiration Date V isits Requested Visits Authorized [id number] Closed Consult, Test & Treat PCP Updated and/or Approved 07/30/2023 07/29/2024 6 6 Encounter Details Date Type Department Care Team (Late st Contact Info) Description 07/30/2023 Transcribe Orders eDH Incoming Referrals [phone] oYel Artis APRN [address] [place] [address] Raised prostate specific antigen Social History Tobacco [...] 9:30 AM EST Appointment Non-[place] [address] Mushtaq Murphy APRN 10/31/2024 11:00 AM EST Office Visit Cardiology at [address] [address] Mushtaq Murphy, FREDRICK Scheduled Referrals Name Type Priority Associated Diagnoses Orde r Schedule Referral to Urology Outpatient Referral Routine Raised prostate specific antigen Ordered: 07/30/2023 documented as of this encounter Visit Diagnoses Diagnosis Raised prostate specific antigen Elevated prostate specific antigen (PSA) documented in this encounter Care Teams Die Machine Operator Relationship Specialty Start Date End Date Yoel Artis APRN [address] [place] [address] PCP - General Internal Medicine 11/18/22 07/29/24 documented as of this encounter
--- OUTSIDE RECORDS SUMMARY | 2024-10-15 10:03 | XMS_ITS | Encounter Summary ---
[place] [address] Care Team Providers Care Parts Advisor Name Role Phone Alexia Mtz FREDRICK Primary Care Provider [phone] Encounter Details Date Type Department Care Team (Late st Contact Info) Description 07/29/2024 External [place] [address] Social History Tobacco Use Types Packs/Day Years Used Date Smoking Tobacco: Former Cigarettes Smokeless Tobacco: Never Alcohol Use Standard Drinks/Week Comments Not Currently 0 (1 standard drink = 0.6 oz pur e alcohol) [facility] Utilities Answer Date Recorded In [...] 9:30 AM EST Appointment Non[place] [address] Mushtaq Murphy, FREDRICK 10/31/2024 11:00 AM EST Office Visit Cardiology at [address] [address] Mushtaq Murphy, FREDRICK documented as of this encounter Procedures Procedure Name Priority Date/Time Associated Diagnosis Comments MISC EXTERNAL CARDIOLOGY RESULT Routine 07/29/2024 10:13 AM EST documented in this encounter Results * External Cardiology Result (07/29/2024 10:13 AM EST) Anatomical Region Laterality Modality Other Historical Provider EXTERNAL CARDIOLO GY RESULT documented in this encounter Visit Diagnoses Not on filedocumented in this encounter Care Teams Parts Advisor Relationship Specialty Start Date End Date Aleixa Mtz APRN [address] [place] [address] PCP - General Family Medicine 07/30/24 documented as of this encounter
--- OUTSIDE RECORDS SUMMARY | 2024-10-19 09:59 | XMS_ITS | Clinical Summary ---
Author Organization [facility] [place] [address] Care Team Providers Care Apprentice Machinist Outside Name Role Phone Alexia Mtz FREDRICK Primary Care Provider [phone] Allergies No known active allergies Medications Medication [...] Team Description 10/02/2024 Notes Only Cardiology at [address] [phone] 10/02/2024 Telephone Cardiology at [address] [address] Tre Gibbons RN 10/01/2024 1:55 PM EST Laboratory Appointment Lab [address] [place] [address] HFrEF (heart failure with reduced ejection fraction) 10/01/2024 11:00 AM EST - 10/01/2024 11:59 PM EST Hospital Encounter Non-[place] [address] Mushtaq Royal APRN HFrEF (heart failure with reduced ejection fraction) Discharge Disposition: Home 10/01/2024 10:00 AM EST Office Visit Cardiology at [address] [phone] Mushtaq Royal, FREDRICK HFrEF (heart failure with reduced ejection fraction); ST elevation myocardial infarction involving left anterior descending (LAD) coronary artery 10/01/2024 Telephone Cardiology at [address] [phone] Chloe Ramos 10/01/2024 Travel 09/21/2024 External Results Non-Invasive [place] [address] 07/31/2024 4:30 PM EST - 07/31/2024 5:30 PM EST Surgery Control [employer] [place] [address] Maldonado Luis MD CARDIAC CATHETERIZATION 07/29/2024 6:32 PM EST - 07/29/2024 11:59 PM EST Hospital Encounter [facility] at [address] [address] Arvin Becerra MD Discharge Disposition: Home 07/29/2024 12:00 PM EST - 07/29/2024 12:54 PM EST Surgery Control Clerk [employer] [place] [phone] Vahe Marvin MD CARDIAC CATHETERIZATION 07/29/2024 11:45 AM EST - 08/04/2024 5:00 PM EST Hospital Encounter Cardiovascular [place] [phone] Vahe Marvin MD Dadekian, MD Keith Richter, MD Eh Galvez Poornima, MD Kostojchin, Anastas, MD Kussaga, Sanjiv Hoffmann MD ST elevation myocardial infarction involving left anterior descending (LAD) coronary artery; HFrEF (heart failure with reduced ejection fraction) Discharge Disposition: Home 07/29/2024 Orders Only Control Clerk [employer] [place] [phone] Suasnnah Watts PA 07/29/2024 Interpretation Only [address] [phone] Deondre Ferrera MD 07/29/2024 Notes Only Cardiology [place] [phone] Ivan Hernandez MD 07/29/2024 External Results Emergency Department [place] [phone] 07/28/2024 Interpretation Only [address] [phone] Quinten Coffey MD from Last 3 Months [...] 9:30 AM EST Appointment Non-Invasive [place] [address] Mushtaq Royal, EVENT MARKETING MANAGER 10/31/2024 11:00 AM EST Office Visit Cardiology at [address] [phone] Mushtaq Royal, EVENT MARKETING MANAGER Health Maintenance Due Date Last Done [...] VIEW STAT 07/29/2024 10: 50 AM EST [facility] EXTERNAL CARDIOLOGY RESULT Routine 07/29/2024 10:13 AM [...] EST 10/01/2024 12:38 PM EST Mushtaq Royal EVENT MARKETING MANAGER CHEMISTRY ORDERABLE S Performing Organization Address City/[facility]/ZIP Co de Phone Number [facility] [place] [address] * Magnesium (10/01/2024 12:33 PM EST) Only the most recent of9 resultswithin the time period is included. Pathologist [facility] [place] Magnesium 0.94 0.69 - 1.07 mMol/L 10/01/2024 1:18 PM EST [facility] Blood VENOUS BLOOD SPECIMEN / Unknown Venipuncture / Unknown 10/01/2024 12:33 PM EST 10/01/2024 12:38 PM EST Mushtaq Royal EVENT MARKETING MANAGER CHEMISTRY ORDERABLE S [facility] [place] [address] * Comprehensive metabolic panel Non-fasting (10/01/2024 12:33 PM EST) Only the most recent of2 resultswithin the time period is included. Glucose 76 65 - 199 mg/dL 10/01/2024 1:18 PM [facility] Comment:Glucose Concentratio n >=200 mg/dL plus symptoms is consistent with Diabetes Mellitus. Blood Urea Nitrogen 17 10 - 20 mg/dL 10/01/2024 1:18 PM [facility] Creatinine 1.06 0.80 - 1.50 mg/dL 10/01/2024 1:18 PM [facility] Sodium 142 135 - 145 mMol/L 10/01/2024 1:18 PM [facility] Potassium 4.1 3.5 - 5.0 mMol/L 10/01/2024 1:18 PM [facility] Chloride 105 98 - 107 mMol/L 10/01/2024 1:18 PM [facility] Carbon Dioxide 25 22 - 31 mMol/L 10/01/2024 1:18 PM [facility] Anion Gap 12 5 - 15 mMol/L 10/01/2024 1:18 PM [facility] Calcium 9.5 8.5 - 10.5 mg/dL 10/01/2024 1:18 PM [facility] Protein, Total 7.2 6.1 - 8.0 g/dL 10/01/2024 1:18 PM [facility] Albumin 4.3 3.2 - 5.2 g/dL 10/01/2024 1:18 PM [facility] Aspartate Aminotransferase 18 <=39 unit/L 10/01/2024 1:18 PM [facility] Alanine Aminotransferase 18 0 - 55 unit/L 10/01/2024 1:18 PM [facility] Alkaline Phosphatase 94 40 - 130 unit/L 10/01/2024 1:18 PM [facility] Bilirubin, [...] ORDERABLE S [facility] [place] [address] * ECHO LMTD W CONTRAST W LMTD SPEC DOPP COLOR DOPP (10/01/2024 12:15 PM EST) EF 33 HEARTLAB SYSTEM Anatomical Region Laterality Modality Cardiac Other 10/01/2024 11:0 6 AM EST Narrative 10/01/2024 1:22 PM EST [address] [place] [address] ? Echocardiogram Report Name: KOREY MONTOYA ? Study Date: 10/01/2024 11:06 AMBP: 119/78 mmHg : 1950 ? Height: 168 cm ? Account: [id number] Age: 74 yrs ? Weight: 62 kg Gender: Male ?BSA: 1.7 m2 Ordering Physician: MUSHTAQ ROYAL Referring Physician: MUSHTAQ ROYAL Performed By: OMERO Baez Reason For Study: Chest pain Exam Location: [facility]. Interpretation Summary Left ventricular systolic [...] the findings are similar. Procedure Limited - 91644. Image enhancement Optison was used for left [...] Note Pablo Tam MD - 10/01/2024 [address] [place] [address] Echocardiogram Report Name: KOREY MONTOYA Study Date: 511:06 AMBP: 119/78 mmHg : 1950 Height: 168 cm Account: [id number] Age: 74 yrs Weight: 62 kg Gender: Male BSA: 1.7 m2 Ordering Physician: MUSHTAQ ROYAL Referring Physician: MUSHTAQ ROYAL Performed By: OMERO Baez Reason For Study: Chest pain Exam Location: [facility]. Interpretation Summary Left ventricular systolic [...] 07/30/2024, the findings aresimilar. Procedure Limited - 06122. Image enhancement Optison was used for left [...] (Bezet) 428 ms MUSE SYSTEM Calculated P [place] 83 degrees MUSE SYSTEM Calculated R [place] 88 degrees MUSE SYSTEM Calculated T [place] 159 degrees MUSE SYSTEM INTERPRETATION Normal sinus rhythm Low voltage QRS 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) T wave abnormality, consider lateral ischemia ACUTE TX / STEMI Abnormal ECG When [...] MD HEMATOLOGY ORDERABLE S Performing Organization Address City/State/[facility] [[email or web address]] Co de Phone Number [facility] [place] [address] * Basic Metabolic Panel (08/04/2024 6:08 AM [...] MD CHEMISTRY ORDERABLES [facility] [place] [address] * POC, GLUCOSE (08/02/2024 7:47 AM EST) [...] TEST O RDERABLES [facility] [place] [address] * Scan Doc: Telemetry Strips (08/02/2024 7:37 [...] CHEMISTRY ORDERABL ES [facility] [place] [address] * (ABNORMAL) Cooximetry, POC (08/01/2024 10:45 AM [...] CARE TEST O RDERABLES Performing Organization Address City/State/[facility] [[email or web address]] Co de Phone Number [facility] [place] [address] * CARDIAC CATHETERIZATION (07/31/2024 5:53 PM EST) Only the most recent of2 resultswithin the time period is included. Anatomical Region Laterality Modality Other Narrative 08/01/2024 12:37 PM EST ?[facility] ? Cardiac Catheterization/Intervention Report ? Patient Name: Korey Montoya Kyrie. ? Procedure Date: 07/31/2024 ? A #: [id number] ? Primary Physician: Janelle, Maldonado T ? Case #: [id number] ? File Name: [id number] ? Catheterization Order Number: [id number] ? [facility] ? Final Report [place], [place] ? Patient Name: ? Korey P. Montoya ?ID#: ?[id number] ? : ?1950 ? Procedure Date: ? [...] Comments: ?Impella removed from the right RN COMPLIANCE with deployment of Perclose and ?Angioseal. ??Good [...] Maldonado Luis MD - 08/01/2024 [facility] Cardiac Catheterization/Intervention Report Patient Name: Korey MontoyaToby Procedure Date: 07/31/2024 A #: [id number] Primary Physician: Maldonado Luis Case #: [id number] File Name: [id number] Catheterization Order Number: [id number] [facility] FinalReport [place], [place] Patient Name: Korey Montoya ID#:[id number] :1950 Procedure Date: July 31, 2024 Case [...] designated as ASA Class IV. The [facility] clinical frailtyscale is 4: Vulnerable. [...] Comments: Impella removed from the right RN COMPLIANCE with deployment of Perclose and Angioseal. Good [...] 7.48(H) 7.35 - 7.45 07/31/2024 8:30 AM [facility] PCO2, Arterial 29(L) 35 - 45 mmHg 07/31/2024 8:30 AM [facility] PO2, Arterial 71(L) 85 - 104 mmHg 07/31/2024 8:30 AM [facility] Bicarbonate, Arterial 20.6 20.0 - 26.0 mmol/L 07/31/2024 8:30 AM [facility] Base Excess, Arterial -3.0 -3.0 [...] TEST O RDERABLES [facility] [place] [address] * (ABNORMAL) Hepatic Function Panel (07/31/2024 1:08 [...] Parker MD CHEMISTRY ORDERABLES Performing Organization Address [facility]/ZIP Co de Phone Number [facility] [place] [address] * (ABNORMAL) Phosphorus (07/30/2024 3:08 PM EST) [...] City/[facility]/ZIP Co de Phone Number [facility] [place] [address] * ECHO LMTD W CONTRAST W LMTD SPEC DOPP COLOR DOPP (07/30/2024 11:42 AM EST) Anatomical Region Laterality Modality Cardiac Other 07/30/2024 10:2 2 AM EST Narrative 07/30/2024 12:34 PM EST [address] [place] [address] ? Echocardiogram Report Name: KOREY MONTOYA ? Study Date: 07/30/2024 10:22 AMBP: 124/66 mmHg : 1950 ? Height: 168 cm ? Account: [id number] Age: 74 yrs ? Weight: 65 kg [...] Compared to the overnight study by the front desk administrator fellow the impella position is stable. 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 Procedure Limited - 44694. Image enhancement Definity was used for both [...] Note Kathleen Banda MD - 07/30/2024 [address] [place] [address] Echocardiogram Report Name: KOREY MONTOYA Kyrie Study Date: 410:22 AMBP: 124/66 mmHg : 1950 Height: 168 cm Account: [id number] Age: 74 yrs Weight: 65 kg Gender: [...] Compared to the overnight study by the front desk administrator fellow the impella positionis stable. The global left ventricular systolic function has improvedpredominantly via recruitment outside the LAD territory which remains akinetic. Procedure Limited - 33950. Image enhancement Definity was used for both [...] can be found in the [facility] Laboratory Test Catalog Troponin - [email or web address] Reference: Fourth [place] Definition of Myocardial Infarction. Journal of the [employer] College of Cardiology 2018;72:6416-1900 Blood VENOUS BLOOD SPECIMEN / Unknown Venipuncture / Unknown 07/30/2024 8:09 AM EST 07/30/2024 8:26 AM EST Jay Silverio MD CHEMISTRY ORDERABL ES [facility] [place] [address] * Echocardiogram Transthoracic (07/30/2024 1:41 AM EST) Anatomical Region Laterality Modality Cardiac Other 07/30/2024 1:41 AM EST Narrative 07/30/2024 8:23 AM EST [address] [place] [address] ? Echocardiogram Report Name: KOREY MONTOYA ? Study Date: 07/30/2024 01:41 AM : 1950 ? Height: 168 cm Age: 74 yrs ? Weight: 5.9 kg Gender: Male ?BSA: 0.63 m2 Performed By: Beatris Ching MD Reason For Study: STEMI, VT History: ASCVD, HTN, HLD Interpreting Fellow: Beatris Ching. Interpretation Summary This is a limited study performed by a fellow front desk administrator to evaluate for cardiogenic shock with [...] study available for comparison. Procedure Limited - 56113. Suboptimal quality. There is sinus bradycardia. Left [...] Note Kathleen Banda MD - 07/30/2024 [address] [place] [address] Echocardiogram Report Name: KOREY MONTOYA Study Date: 07/30/2024 01:41AM : 1950 Height: 168 cm Age: 74 yrs Weight: 5.9 kg Gender: Male BSA: 0.63 m2 Performed By: Beatris Ching MD Reason For Study: STEMI, VT History: ASCVD, HTN, HLD Interpreting Fellow: Beatris Ching. Interpretation Summary This is a limited study performed by a fellow front desk administrator to evaluate forcardiogenic shock with impella [...] study available for comparison. Procedure Limited - 02115. Suboptimal quality. There is sinus bradycardia. Left [...] Recheck AB POSITIVE 07/29/2024 10:13 PM EST [facility] Blood VENOUS BLOOD SPECIMEN / Unknown Venipuncture / Unknown 07/29/2024 6:43 PM EST 07/29/2024 7:15 PM EST Jay Silverio MD BLOOD BANK LAB ORD ERABLES [facility] [place] [phone] * Type and screen ([facility]/JONG/MAGALIE) (07/29/2024 5:56 PM EST) ABORH Type AB POSITIVE 07/29/2024 9:44 PM EST [facility] PATIENT HISTORY Not Found 07/29/2024 9:44 PM EST [facility] Expires at [id number] on: 08/01/2024 07/29/2024 9:44 PM EST [facility] ANTIBODY SCREEN AUTOMATED Negative 07/29/2024 9:44 PM EST [facility] T&S only valid at [facility] 07/29/2024 9:44 PM EST [facility] Blood VENOUS BLOOD SPECIMEN / Unknown Venipuncture / Unknown 07/29/2024 5:56 PM EST 07/29/2024 6:07 PM EST Narrative [facility] - 07/29/2024 9:44 PM EST This Type and Screen result is only valid at the [facility] Jay Silverio MD BLOOD BANK LAB ORD ERABLES Performing Organization Address City/[facility]/ZIP Co de Phone Number [facility] [place] [address] * Blood culture (07/29/2024 4:08 PM EST) Only the most recent of2 resultswithin the time period is included. Blood Culture No growth at 120 hours 08/03/2024 5:01 PM EST [facility] Blood VENOUS BLOOD SPECIMEN / Unknown Venipuncture / Unknown 07/29/2024 4:08 PM EST 07/29/2024 4:15 PM EST Jay Silverio MD MICROBIOLOGY - BLO OD ORDERABLES Performing Organization Address [facility] [[email or web address]] Co de Phone Number [facility] [place] [address] * XR Chest One View (07/29/2024 2:30 PM EST) Only the most recent of3 resultswithin the time period is included. WORKSTATION ID [id number] [facility] Anatomical Region Laterality Modality Chest N/A [...] questions please contact the health critical care clinical nurse specialist that requested your imaging first. ? Electronically signed by: Chris Candelaria MD, [facility] ([phone]), at 07/29/2024 3:21 PM Narrative 07/29/2024 3:21 [...] have questions please contactthe health critical care clinical nurse specialist that requested your imaging first. Electronically signed by: Chris Candelaria MD, [facility]([phone]), at 07/29/2024 3:21 PM Vahe Marvin MD IMG DX ORDERABLES * TSH [place] (07/29/2024 2:03 PM EST) Thyroid Stimulating Hormone 0.70 0.27 - 4.20 mcIU/mL 07/29/2024 2:52 PM EST [facility] Blood VENOUS BLOOD SPECIMEN / Unknown Venipuncture / Unknown 07/29/2024 2:03 PM EST 07/29/2024 2:14 PM EST Vahe Marvin MD CHEMISTRY ORDERABLES Performing Organization Address [facility]/ZIP Co de Phone Number [facility] [place] [address] * CRP, acute inflammation (07/29/2024 2:03 PM EST) C-Reactive Protein <3.0 <=4.9 mg/L 07/29/2024 2:52 PM EST [facility] Blood VENOUS BLOOD SPECIMEN / Unknown Venipuncture / Unknown 07/29/2024 2:03 PM EST 07/29/2024 2:14 PM EST Vahe Marvin MD CHEMISTRY ORDERABLES Performing Organization Address [facility] [[email or web address]] Co de Phone Number [facility] [place] [address] * (ABNORMAL) APTT (07/29/2024 2:03 PM EST) Partial Thromboplastin Time >160(HHH) 25 - 37 sec 07/29/2024 2:56 PM EST [facility] Blood VENOUS BLOOD SPECIMEN / Unknown Venipuncture / Unknown 07/29/2024 2:03 PM EST 07/29/2024 2:13 PM EST Vahe Marvin MD HEMATOLOGY ORDERABLE S Performing Organization Address City/[facility]/ZIP Co de Phone Number [facility] [place] [address] * (ABNORMAL) Prothrombin Time (07/29/2024 2:03 PM [...] HEMATOLOGY ORDERABLE S [facility] [place] [address] * Hemoglobin A1c (07/29/2024 2:03 PM EST) [...] red blood cell turnover may not be livestock sales representative of glycemic control. Reference Interval: [...] 07/29/2024 2:[address] [facility] - 07/29/2024 2:41 PM EST Estimated average glucose (eAG) is calculated from the equation described in: Quinten ALVES, Rikki Booth, [place] R, et al. ??Translating the A1C assay into estimated average glucose values. ??Diabetes Care 2008:31(8):2359-8000. Additional resources are available on the ADA website (diabetes.org). Vahe Marvin MD CHEMISTRY ORDERABLES [facility] [place] [address] * Lipid Panel (Reflex Direct LDL) (07/29/2024 2:03 PM EST) [facility] Cholesterol, Total 133 mg/dL 07/29/2024 [...] HDL Cholesterol 58 mg/dL 4 2:52 PM [facility] 07/29/2024 2:03 PM EST 07/29/2024 2:14 PM [facility] - 07/29/2024 2:52 PM EST It [...] (most recently Rolf et al. [facility] 06/15/22): * For individuals with atherosclerotic cardiovascular [...] MD CHEMISTRY ORDERABLES [facility] [place] [address] * (ABNORMAL) Blood Gas, Venous POC (07/29/2024 2:01 PM EST) pH, Venous 7.30(L) 7.32 - 7.42 07/29/2024 2:02 PM [facility] PCO2, Venous 42 38 - [...] 135 - 145 mmol/L 07/29/2024 2:02 PM [facility] Potassium, Venous 3.6 3.5 - 5.0 mmol/L 07/29/2024 2:02 PM [facility] Chloride, Venous 103 98 - 107 mmol/L 07/29/2024 2:02 PM EST [facility] Glucose, Venous 229(H) 65 - 199 mg/dL 07/29/2024 2:02 PM [facility] Comment:Glucose Concentratio n >=200 mg/dL plus symptoms is consistent with Diabetes Mellitus. Lactate, Venous 3.1(H) 0.5 - 2.2 mmol/L 07/29/2024 2:02 PM [facility] Ionized Calcium, Venous 1.11(L) 1.15 - 1.33 mmol/L 07/29/2024 2:02 PM [facility] Blood VENOUS BLOOD SPECIMEN / Unknown 07/29/2024 2:01 PM EST 07/29/2024 2:02 PM EST Vahe Marvin MD POINT OF CARE TEST O RDERABLES Performing Organization Address City/State/[facility] [[email or web address]] Co de Phone Number [facility] [place] [address] * (ABNORMAL) BLOOD GAS, POC (07/29/2024 12:46 [...] TEST O RDERABLES [facility] [place] [phone] * External Cardiology Result (07/29/2024 10:13 AM EST) Anatomical Region Laterality Modality Other Historical Provider EXTERNAL CARDIOLO GY RESULT * Scan Doc: EEG (07/29/2024 9:44 AM EST) Historical Provider MEDIA MGR SCAN EX T ORDR/RSLT * COLONOSCOPY (08/30/2023 10:57 AM EST) COLONOSCOPY [facility] Endoscopy Procedure Date: 08/30/2023 10:57 AM ? Patient Name: Korey Montoya ? Date of : 1950 ? Age: 73 ? Order #: [id number] ? Instrument Name: [id number] ? Procedure: ? Colonoscopy Indications: ? Rectal [...] preparation was evaluated ? using the BBPS (Harrington Bowel ? Preparation Scale) with scores of: [...] 08/30/2023 10:5 7 AM EST Yoel Artis EVENT MARKETING MANAGER GENERAL SURGICAL ORD ERABLES PROVATION from Last 3 Months or Most Recently Relevant to Health Maintenance Advance Directives * Attempt Cardiopulmonary Resuscitation - Inpatient (Latest Code Status on File) Date Activated Date Inactivated Comments 07/29/2024 2:01 PM 08/04/2024 7:34 PM Question Answer Comments Code Status decision made by: Patient Content of discussion: pre-arrest limitations Care Teams Apprentice Machinist Outside Relationship Specialty Start Date End Date Alexia Mtz APRN [address] [place] [address] PCP - General Family Medicine 07/30/24
--- OUTSIDE RECORDS SUMMARY | 2024-10-19 09:59 | XMS_ITS | Encounter Summary ---
[place] [address] Care Team Providers Care Vacuum Furnace Operator Name Role Phone Alexia Mtz FREDRICK Primary Care Provider [phone] Reason for Referral * Diagnostic Test (Routine) - Authorized Specialty Diagnoses / Procedures Referred By [facility] Referred To Contact Cardiology Diagnoses HFrEF (heart failure with reduced ejection fraction) Procedures Echocardiogram Transthoracic Mushtaq Royal APRN [facility] [place] [address] Referral ID Status Reason Start Date Expiration Date Visits Requested Visits Authorized [id number] Authorized Specialty Service Requested 10/02/2024 10/02/2025 1 1 * Consultation (Routine) - Closed Specialty Diagnoses / Procedures Referred By [facility] Referred To Contact Cardiology Diagnoses HFrEF (heart failure with reduced ejection fraction) ST elevation myocardial infarction involving left anterior descending (LAD) coronary artery Mushtaq Royal APRN [facility] [place] [address] Referral ID Status Reason Start Date Expiration Date V isits Requested Visits Authorized [id number] Closed Consult, Test & Treat 10/02/2024 10/02/2025 36 36 * Diagnostic Test (Routine) - Closed Specialty Diagnoses / Procedures Referred By Contac t Referred To Contact Cardiology Diagnoses HFrEF (heart failure with reduced ejection fraction) Procedures Echocardiogram Transthoracic Mushtaq Royal APRN [facility] [place] [address] Referral ID Status Reason Start Date Expiration Date V isits Requested Visits Authorized [id number] Closed Specialty Service Requested 10/01/2024 10/01/2025 1 1 * Consultation (Routine) - Authorized Specialty Diagnoses / Procedures Referred By Contac t Referred To Contact Diagnoses HFrEF (heart failure with reduced ejection fraction) NUTRITION Initial MNT Mushtaq Royal APRN Copeland, Jean M, [facility] [place] [address] Referral ID Status Reason Start Date Expiration Date Visits Requested Visits Authorized [id number] Authorized Continuity of Care 10/01/2024 10/01/2025 1 1 Reason for Visit * Consultation (Routine) - Closed Specialty Diagnoses / Procedures Referred By Contac t Referred To Contact Cardiology Diagnoses HFrEF (heart failure with reduced ejection fraction) [facility] S/P D/C acute HFrEF Sanjiv Villagran MD [facility] [place] [address] Mushtaq Royal APRN [facility] [place] [address] Referral ID Status Reason Start Date Expiration Date V isits Requested Visits Authorized [id number] Closed Consult, Test & Treat 08/04/2024 08/04/2025 1 1 Encounter Details Date Type Department Care Team (Late st Contact Info) Description 10/01/2024 10:00 AM EST Office Visit Cardiology at [address] [address] Mushtaq Royal APRN HFrEF (heart failure with reduced ejection fraction); ST elevation myocardial infarction involving left anterior descending (LAD) coronary artery Social History Tobacco Use Types Packs/Day Years Used Date Smoking Tobacco: Former Cigarettes Smokeless Tobacco: Never Alcohol Use Standard Drinks/Week Comments Not Currently 0 (1 standard drink = 0.6 oz pur e alcohol) [facility] Utilities Answer Date Recorded In the past [...] clinic for weight gain or any question [phone] documented in this encounter Progress Notes * Mushtaq Royal APRN - 10/01/2024 10:00 AM EST Images from the original note were not included. [facility] Section of Advanced Heart Failure Cardiology and Pulmonary Hypertension [facility] [place] [id number] Name: Korey Bermudez Date: 10/01/2024 Referring provider: Sanjiv Villagran MD [facility] [place] [address] History of Present Illness 74 y.o. male with a past medical history of: Ischemic cardiomyopathy EF 33% CAD STEMI - 07/31/2024 - PCI to LAD HLD HTN BPH Patient was admitted on 07/29/2024 after being airlifted by helicopter to [facility] due tofindings of ST elevation patient had awoken that morning with substernal chest pain with bilateral arm discomfort. Patient reported that his discomfort was aching in character was an 8/10. He was seen at the outside hospital anterior, inferior, and lateral ST elevation on EKG. [place] [facility] [place] left heart catheterization which showed 100% [...] placed and he was transferred to the [facility] for an initial cardiac index of 1.97 which improved to 2.2 after Impella placement. Patient required hemodynamic support with vasopressors and eventually on dobutamine. Patient remained in the [facility] until downgraded on 08/01/2021. Patient was discharged from [facility] on 08/04/2024 and presents today in the [...] mild AR. MRI Non invasive ischemic evaluation [facility] 07/29/2024: Left main normal and free of disease. LAD, single discrete total occlusion of the proximal segment, left circumflex is normal. Disease, RCA normal and free of disease. Drug-eluting stent to the proximal and distal [facility] 07/29/2024: (prior to impella) RA 16, [...] 9:30 AM EST Appointment Non[place] [address] Mushtaq Royal APRN 10/31/2024 11:00 AM EST Office Visit Cardiology at [address] [address] Mushtaq Royal APRN Scheduled Orders Name Type [...] 2,150(H) <=124 pg/mL 10/01/2024 1:18 PM EST [facility] Blood VENOUS BLOOD SPECIMEN / Unknown Venipuncture / Unknown 10/01/2024 12:33 PM EST 10/01/2024 12:38 PM EST Mushtaq Royal BUSINESS BROKER CHEMISTRY ORDERABLE S [facility] [place] [address] * Magnesium (10/01/2024 12:33 PM EST) Magnesium 0.94 0.69 - 1.07 mMol/L 10/01/2024 1:18 PM [facility] Blood VENOUS BLOOD SPECIMEN / Unknown Venipuncture / Unknown 10/01/2024 12:33 PM EST 10/01/2024 12:38 PM EST Mushtaq Royal BUSINESS BROKER CHEMISTRY ORDERABLE S Performing Organization Address City/[facility]/ZIP Co de Phone Number [facility] [place] [address] * Comprehensive metabolic panel Non-fasting (10/01/2024 12:33 PM EST) Glucose 76 65 - 199 mg/dL 10/01/2024 1:18 PM EST [facility] Comment:Glucose Concentratio n >=200 mg/dL plus symptoms is consistent with Diabetes Mellitus. Blood Urea Nitrogen 17 10 - 20 mg/dL 10/01/2024 1:18 PM [facility] Creatinine 1.06 0.80 - 1.50 mg/dL 10/01/2024 1:18 PM EST [facility] Sodium 142 135 - 145 [...] m?? 10/01/2024 1:18 PM [facility] Comment: This patient's estimated GFR was [...] No 10/01/2024 1:18 PM [facility] Blood VENOUS BLOOD SPECIMEN / Unknown Venipuncture / Unknown 10/01/2024 12:33 PM EST 10/01/2024 12:38 PM EST Mushtaq Royal BUSINESS BROKER CHEMISTRY ORDERABLE S [facility] [place] [address] * ECHO LMTD W CONTRAST W LMTD SPEC DOPP COLOR DOPP (10/01/2024 12:15 PM EST) EF 33 HEARTLAB SYSTEM Anatomical Region Laterality Modality Cardiac Other 10/01/2024 11:0 6 AM EST Narrative 10/01/2024 1:22 PM EST 1 [place] [address] ? Echocardiogram Report Name: KOREY BERMUDEZ ? Study Date: 10/01/2024 11:06 AMBP: 119/78 mmHg : 1950 ? Height: 168 cm ? Account: [id number] Age: 74 yrs ? Weight: 62 kg Gender: Male ?BSA: 1.7 m2 Ordering Physician: MUSHTAQ ROYAL Referring Physician: MUSHTAQ ROYAL Performed By: Joanne Damon, RCS Reason For Study: Chest pain Exam Location: [facility]. Interpretation Summary Left ventricular systolic function [...] the findings are similar. Procedure Limited - 11119. Image enhancement Optison was used for left [...] Note Pablo Tam MD - 10/01/2024 1 [place] [address] Echocardiogram Report Name: KOREY BERMUDEZ Study Date: 1:06 AMBP: 119/78 mmHg : 1950 Height: 168 cm Account: [id number] Age: 74 yrs Weight: 62 kg Gender: Male BSA: 1.7 m2 Ordering Physician: MUSHTAQ ROYAL Referring Physician: MUSHTAQ ROYAL Performed By: OMERO Baez Reason For Study: Chest pain Exam Location: [facility]. Interpretation Summary Left ventricular systolic function [...] 07/30/2024, the findings aresimilar. Procedure Limited - [id number]. Image enhancement Optison was used for left [...] (Bezet) 428 ms MUSE SYSTEM Calculated P Herscher 83 degrees MUSE SYSTEM Calculated R Herscher 88 degrees MUSE SYSTEM Calculated T Herscher 159 degrees MUSE SYSTEM INTERPRETATION Normal sinus rhythm Low voltage QRS 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) T wave abnormality, consider lateral ischemia ACUTE MO / STEMI Abnormal ECG When [...] fraction) documented in this encounter Care Teams Vacuum Furnace Operator Relationship Specialty Start Date End Date Alexia Mtz, FREDRICK [address] [place] [address] PCP - General Family Medicine 07/30/24 documented as of this encounter
--- OUTSIDE RECORDS SUMMARY | 2024-10-19 09:59 | XMS_ITS | Encounter Summary ---
Author Organization [facility] Address [facility] [place] [place] [address] Care Team Providers Care Machine Or Machinery Mechanic Name Role Phone Alexia Mtz FREDRICK Primary Care Provider [phone] Encounter Details Date Type Department Care Team (Late st Contact Info) Description 10/02/2024 Notes Only Cardiology at [address] [address] Alok Eaton, RD [facility] [place] [address] Social History Tobacco Use Types Packs/Day Years Used Date Smoking Tobacco: Former Cigarettes Smokeless Tobacco: Never Alcohol Use Standard Drinks/Week Comments Not Currently 0 (1 standard drink = 0.6 oz pur e alcohol) [facility] Utilities Answer Date Recorded In the past 12 months has e [employer], gas, oil, or water [employer] threatened to shut off services in your [...] call-back number to schedule telehealth visit through pocket secretary assembler: [phone] Option #2. documented in this encounter Plan of Treatment Upcoming Encounters Date Type Department Care Team (Late st Contact Info) Description 10/31/2024 9:30 AM EST Appointment Non-Invasive [place] [address] Mushtaq Murphy APRN 10/31/2024 11:00 AM EST Office Visit Cardiology at [address] [address] Mushtaq Murphy APRN documented as of this encounter Visit Diagnoses Not on filedocumented in this encounter Care Teams Machine Or Machinery Mechanic Relationship Specialty Start Date End Date Alexia Mtz APRN [address] [place] [address] PCP - General Family Medicine 07/30/24 documented as of this encounter
--- OUTSIDE RECORDS SUMMARY | 2024-10-19 09:59 | XMS_ITS | Encounter Summary ---
[place] [address] Care Team Providers Care Calculator Operator Name Role Phone Alexia Mtz Shun ALCALA Primary Care Provider [phone] Reason for Referral * Diagnostic Test (Routine) - Closed Specialty Diagnoses / Procedures Referred By Contac t Referred To Contact Cardiology Diagnoses HFrEF (heart failure with reduced ejection fraction) Procedures Echocardiogram Transthoracic Rudolph Royal APRN [facility] [place] [address] Referral ID Status Reason Start Date Expiration Date V isits Requested Visits Authorized [id number] Closed Specialty Service Requested 10/01/2024 10/01/2025 1 1 Reason for Visit * Diagnostic Test (Routine) - Closed Specialty Diagnoses / Procedures Referred By Contac t Referred To Contact Cardiology Diagnoses HFrEF (heart failure with reduced ejection fraction) Procedures Echocardiogram Transthoracic Rudolph Royal APRN [facility] [place] [address] Referral ID Status Reason Start Date Expiration Date V isits Requested Visits Authorized [id number] Closed Specialty Service Requested 10/01/2024 10/01/2025 1 1 Encounter Details Date Type Department Care Team (Latest Contact Info) Description 10/01/2024 11:00 AM EST - 10/01/2024 11:59 PM EST Hospital Encounter Non[place] [address] Rudolph Royal APRN HFrEF (heart failure with reduced ejection fraction) Discharge Disposition: Home Social History Tobacco Use Types Packs/Day Years Used Date Smoking Tobacco: Former Cigarettes Smokeless Tobacco: Never Alcohol Use Standard Drinks/Week Comments Not Currently 0 (1 standard drink = 0.6 oz pur e alcohol) [facility] Utilities Answer Date Recorded In the past 12 months has th e electric, gas, oil, or water [employer] threatened to shut off services in your [...] in the past [address] [facility], were you homeless or living [...] 9:30 AM EST Appointment [place] [address] Rudolph Royal APRN 10/31/2024 11:00 AM EST Office Visit Cardiology at [address] [address] Rudolph Royal, SHOTG[employer] SHELL REPRINTING UNIT OPERATOR documented as of this encounter Procedures [...] EST Narrative 10/01/2024 1:22 PM EST 1 [place] [address] ? Echocardiogram Report Name: KOREY BERMUDEZ ? Study Date: 10/01/2024 11:06 AMBP: 119/78 mmHg : 1950 ? Height: 168 cm ? Account: [id number] Age: 74 yrs ? Weight: 62 kg Gender: Male ?BSA: 1.7 m2 Ordering Physician: RUDOLPH ROYAL Referring Physician: RUDOLPH ROYAL Performed By: OMERO Baez Reason For Study: Chest pain Exam Location: [facility]. Interpretation Summary Left ventricular systolic function is [...] the findings are similar. Procedure Limited - [id number]. Image enhancement Optison was used for left [...] Note Pablo Tam MD - 10/01/2024 1 [place] [id number] Echocardiogram Report Name: KOREY BERMUDEZ Study Date: 1:06 AMBP: 119/78 mmHg : 1950 Height: 168 cm Account: [id number] Age: 74 yrs Weight: 62 kg Gender: Male BSA: 1.7 m2 Ordering Physician: RUDOLPH ROYAL Referring Physician: RUDOLPH ROYAL Performed By: OMERO Baez Reason For Study: Chest pain Exam Location: [facility]. Interpretation Summary Left ventricular systolic function is [...] 07/30/2024, the findings aresimilar. Procedure Limited - [id number]. Image enhancement Optison was used for left [...] mLs documented in this encounter Care Teams Calculator Operator Relationship Specialty Start Date End Date Alexia Mtz APRN [address] [place] [address] PCP - General Family Medicine 07/30/24 documented as of this encounter
--- OUTSIDE RECORDS SUMMARY | 2024-10-19 09:59 | XMS_ITS | Encounter Summary ---
[place] [address] Care Team Providers Care Heating And Air Conditioning Mechanic Name Role Phone Alexia Mtz FREDRICK Primary Care Provider Encounter Details Date Type Department Care Team (Late st Contact Info) Description 09/21/2024 External Results Non-[place] [phone] Social History Tobacco Use Types Packs/Day Years [...] 9:30 AM EST Appointment [place] [address] Mushtaq Murphy APRN 10/31/2024 11:00 AM EST Office Visit Cardiology at [address] [address] Mushtaq Murphy APRN documented as of this encounter Procedures Procedure Name Priority Date/Time Associated Diagnosis Comments EEG SCAN Routine 07/29/2024 9:44 AM EST documented in this encounter Results * Scan Doc: EEG (07/29/2024 9:44 AM EST) Historical Provider MD CLANCY MGR SCAN EX T ORDR/RSLT documented in this encounter Visit Diagnoses Not on filedocumented in this encounter Care Teams Heating And Air Conditioning Mechanic Relationship Specialty Start Date End Date Alexia Mtz APRN [address] [place] [address] PCP - General Family Medicine 11/18/24 documented as of this encounter
--- OUTSIDE RECORDS SUMMARY | 2024-10-19 09:59 | XMS_ITS | Encounter Summary ---
[place] [address] Care Team Providers Care Varnish Remover Name Role Phone Alexia Mtz FREDRICK Primary Care Provider [phone] Encounter Details Date Type Department Care Team (Latest Contact Info) Description 10/01/2024 1:55 PM EST Laboratory Appointment Lab [address] [phone] HFrEF (heart failure with reduced ejection fraction) Social History Tobacco Use Types Packs/Day Years Used Date Smoking Tobacco: Former Cigarettes Smokeless Tobacco: Never Alcohol Use Standard Drinks/Week Comments Not Currently 0 (1 standard drink = 0.6 oz pur e alcohol) [facility] Utilities Answer Date Recorded In the past 12 months has [employer], gas, oil, or water [employer] threatened to shut off services in [...] time in the past 12 m [facility], were you homeless or living in [...] 9:30 AM EST Appointment Non-[place] [address] Mushtaq Murphy, GLASSBLOWER 10/31/2024 11:00 AM EST Office Visit Cardiology at [address] [address] Mushtaq Murphy, GLASSBLOWER documented as of this encounter Procedures Procedure [...] 65 - 199 mg/dL 10/01/2024 1:18 PM [facility] Comment:Glucose Concentratio n >=200 mg/dL plus symptoms is consistent with Diabetes Mellitus. Blood Urea Nitrogen 17 10 - 20 mg/dL 10/01/2024 1:18 PM [facility] Creatinine 1.06 0.80 - 1.50 mg/dL 10/01/2024 1:18 PM [facility] Sodium 142 135 - 145 mMol/L 10/01/2024 1:18 PM [facility] Potassium 4.1 3.5 - 5.0 mMol/L 10/01/2024 1:18 PM [facility] Chloride 105 98 - 107 mMol/L 10/01/2024 1:18 PM [facility] Carbon Dioxide 25 22 - 31 mMol/L 10/01/2024 1:18 PM [facility] Anion Gap 12 5 - 15 mMol/L 10/01/2024 1:18 PM [facility] Calcium 9.5 8.5 - 10.5 mg/dL 10/01/2024 1:18 PM [facility] Protein, Total 7.2 6.1 - 8.0 g/dL 10/01/2024 1:18 PM [facility] Albumin 4.3 3.2 - 5.2 g/dL 10/01/2024 1:18 PM [facility] Aspartate Aminotransferase 18 <=39 unit/L 10/01/2024 1:18 PM [facility] Alanine Aminotransferase 18 0 - 55 unit/L 10/01/2024 1:18 PM [facility] Alkaline Phosphatase 94 40 - 130 unit/L 10/01/2024 1:18 PM [facility] Bilirubin, Total 0.4 <=1.3 mg/dL 10/01/2024 1:18 PM [facility] Est Glomerular [...] EST 10/01/2024 12:38 PM EST Mushtaq Murphy GLASSBLOWER CHEMISTRY ORDERABLE S [facility] [place] [address] * Magnesium (10/01/2024 12:33 PM EST) Magnesium 0.94 0.69 - 1.07 mMol/L 10/01/2024 1:18 PM EST [facility] Blood VENOUS BLOOD SPECIMEN / Unknown Venipuncture / Unknown 10/01/2024 12:33 PM EST 10/01/2024 12:38 PM EST Mushtaq Murphy GLASSBLOWER CHEMISTRY ORDERABLE S [facility] [place] [address] * (ABNORMAL) pro-Brain Natriuretic Peptide (10/01/2024 12:33 PM EST) NT-proBNP 2,150(H) <=124 pg/mL 10/01/2024 1:18 PM EST [facility] Blood VENOUS BLOOD SPECIMEN / Unknown Venipuncture / Unknown 10/01/2024 12:33 PM EST 10/01/2024 12:38 PM EST Mushtaq Murphy GLASSBLOWER CHEMISTRY ORDERABLE S [place] [id number] documented in this encounter Visit Diagnoses Diagnosis HFrEF (heart failure with reduced ejection fraction) documented in this encounter Care Teams Varnish Remover Relationship Specialty Start Date End Date Alexia Mtz APRN [address] [place] [address] PCP - General Family Medicine 07/30/24 documented as of this encounter
--- OUTSIDE RECORDS SUMMARY | 2024-10-19 09:59 | XMS_ITS | Encounter Summary ---
Author Organization [facility] [place] [address] Care Team Providers Care Education Managers Name Role Phone Alexia Mtz FREDRICK Primary Care Provider [phone] Encounter Details Date Type Department Care Team (Late st Contact Info) Description 10/02/2024 Telephone Cardiology at [address] [phone] Tre Gibbons, RN Social History Tobacco Use Types Packs/Day Years Used Date Smoking Tobacco: Former Cigarettes Smokeless Tobacco: Never Alcohol Use Standard Drinks/Week Comments Not Currently 0 (1 standard drink = 0.6 oz pur e alcohol) [facility] Utilities Answer Date Recorded In [...] out to Mr. [place] in response to [employer] message sent by Mushtaq Murphy APRN: I was looking through your chart and would like to increase your spironolactone to a full tab of 25 mg. Mr. [place]oya return verbalizes understanding of the above. We also reviewed the [employer] internship team and I encouraged him to call us anytime, as well as record weight and blood pressure regularly. documented in this encounter Plan of Treatment Upcoming Encounters Date Type Department Care Team (Late st Contact Info) Description 10/31/2024 9:30 AM EST Appointment [place] [address] Mushtaq Murphy APRN 10/31/2024 11:00 AM EST Office Visit Cardiology at [address] [address] Mushtaq Murphy APRN documented as of this encounter Visit Diagnoses Not on filedocumented in this encounter Care Teams Education Managers Relationship Specialty Start Date End Date Alexia Mtz, FREDRICK [address] [place] [address] PCP - General Family Medicine 07/30/24 documented as of this encounter
--- OUTSIDE RECORDS SUMMARY | 2024-10-19 09:59 | XMS_ITS | Encounter Summary ---
Author Organization [facility] [place] [address] Care Team Providers Care Wine Cellar Worker Name Role Phone Alexia Mtz FREDRICK Primary Care Provider [phone] Encounter Details Date Type Department Care Team (Latest Contact Info) Description 10/01/2024 Travel Social History Tobacco Use Types Packs/Day Years Used Date Smoking Tobacco: Former Cigarettes Smokeless Tobacco: Never Alcohol Use Standard Drinks/Week Comments Not Currently 0 (1 standard drink = 0.6 oz pur e alcohol) [facility] Utilities Answer Date Recorded In the [...] any time in the past 12 m [facility], were you homeless or [...] 9:30 AM EST Appointment Non-[place] [address] Mushtaq Murphy, CUTTER APPRENTICE HAND 10/31/2024 11:00 AM EST Office Visit Cardiology at [address] [address] Mushtaq Murphy, CUTTER APPRENTICE HAND documented as of this encounter Visit Diagnoses Not on filedocumented in this encounter Care Teams Wine Cellar Worker Relationship Specialty Start Date End Date Alexia Mtz APRN [address] [place] [address] PCP - General Family Medicine 07/30/24 documented as of this encounter
--- OUTSIDE RECORDS SUMMARY | 2024-10-19 09:59 | XMS_ITS | Encounter Summary ---
Author Organization [facility] [place] [address] Care Team Providers Care Oracle Analyst Name Role Phone GrovetonAlexia shell FREDRICK Primary Care Provider [phone] Encounter Details Date Type Department Care Team (Late st Contact Info) Description 10/01/2024 Telephone Cardiology at [address] [phone] Chloe Ramos Social History Tobacco Use Types [...] AM EST Request for records faxed to [facility] at [phone]. documented in this encounter Plan of Treatment Upcoming Encounters Date Type Department Care Team (Late st Contact Info) Description 10/31/2024 9:30 AM EST Appointment Non-Invasive [place] [address] Mushtaq Murphy APRN 10/31/2024 11:00 AM EST Office Visit Cardiology at [address] [phone] Mushtaq Murphy APRN documented as of this encounter Visit Diagnoses Not on filedocumented in this encounter Care Teams Oracle Analyst Relationship Specialty Start Date End Date Alexia Mtz APRN [address] [place] [address] PCP - General Family Medicine 11/18/24 documented as of this encounter
--- OUTSIDE RECORDS SUMMARY | 2024-10-19 10:00 | XMS_ITS | Encounter Summary ---
Author Organization [facility] Address [facility] [place] [address] Care Team Providers Care Kitchen Aide Name Role Phone Clyde HillAlexia shell Shun ALCALA Primary Care Provider [phone] Reason for Referral * Consultation (Routine) - Closed Specialty Diagnoses / Procedures Referred By Conteleazar t Referred To Contact Cardiology Diagnoses HFrEF (heart failure with reduced ejection fraction) [facility] S/P D/C acute HFrEF Alex Small MD [facility] [place] [address] [facility] [address] [address] Referral ID Status Reason Start Date Expiration Date V isits Requested Visits Authorized [id number] Closed Consult, Test & Treat 08/04/2024 08/04/2025 1 1 * Consultation (Routine) - Pending Review Specialty Diagnoses / Procedures Referred By Contac t Referred To Contact Cardiology Diagnoses ST elevation myocardial infarction involving left anterior descending (LAD) coronary artery Yrn Ward MD [facility] [place] [address] Cardiac Rehab, [facility] [address] [address] Referral ID Status Reason Start Date Expiration Date Visits Requested Visits Authorized [id number] Pending Review Consult, Test & Treat 01/31/2025 36 36 Reason for Visit * Auth/Cert (Routine) Specialty Diagnoses / Procedures Referred By Contac t Referred To Contact Diagnoses STEMI (ST elevation myocardial infarction) STEMI Procedures ER IPI Vahe Marvin MD [facility] [place] [address] [facility] Referral ID Status Reason Start Date Expiration Date Visits Re quested Visits Authorized [id number] 1 1 Encounter Details Date Type Department Care Team (Latest Contact Info) Description 07/29/2024 11:45 AM EST - 08/04/2024 5:00 PM EST Hospital [place] [id number] Vahe Mavrin MD [facility] [place] [address] [facility] [place] [address] [facility] [place] [address] [address] [facility] [place] [address] [facility] [place] [address] [address] [facility] [place] [address] ST elevation myocardial infarction involving left anterior descending (LAD) coronary artery; HFrEF (heart failure with reduced ejection fraction) Discharge Disposition: Home Social History Tobacco Use Types Packs/Day Years Used Date Smoking Tobacco: Former Cigarettes Smokeless Tobacco: Never Alcohol Use Standard Drinks/Week Comments Not Currently 0 (1 standard drink = 0.6 oz pur e alcohol) [facility] Utilities Answer Date Recorded In the [...] please contact your inpatient physician through the [facility] Credit Correspondence Clerk . Issues afterhours and on weekends [...] EKG. Patient transferred via air ambulance to [facility] on 07/29 for LHC and LOW to [...] EKG. Was transferred via air ambulance to [facility] for further management and LHC demonstrated 100% [...] the next year. Access was via right ZIPPER SLIDE ATTACHER and this sitewas clean, dry and intact [...] for Chest pain. Replaces: nitroGLYcerin 400 mcg/spray Allen, Non-Aerosol 0.4 mg Quantity: 90 tablet Refills: [...] Refills: 0 STOPPED Medications nitroGLYcerin 400 mcg/spray Allen, Non-Aerosol Commonly known as: NITROLINGUAL Replaced by: [...] of one year. After this time, your purchasing analyst will determine if you need to continue [...] away. Stay on the phone. The emergency bone char kiln operator will tell you what to do. [...] appointments: During 8am-5pm Tuesday through Tuesday call [phone] to speak with a nurse in the cardiology clinic All other times call [phone] and ask to speak to the bead stringer universal branch consultant. Follow up Appointments: PCP Alexia Mtz, STORE CASHIER [phone]. Please call to establish a follow up appointment within 1-2 weeks of discharge. Cardiology. Referral to heart failure has been sent. General Instructions None Future Appointments and Orders Future Orders Complete By Expires Referral to Cardiac Rehab [CAF893 Custom] As directed Process Instructions: If no progress note charted, please enter Clinical details in comments. Scheduling Instructions: Questions: My question or request is: STEMI, PCI- cardiac rehab at [facility] Referral to Cardiology [REF12 Custom] As directed Process Instructions: If no progress note charted, please enter Clinical details in comments. Scheduling Instructions: Questions: My question or request is: acute HFrEF Discharge References/Attachments None > 30 minutes spend on day of discharge chart review, patient counseling, and documentation. Alex Small MD 08/04/2024 documented in this encounter Discharge Instructions * Patient Instructions* Alex mSall MD - 08/04/2024 3:51 PM EST You underwent a cardiac catheterization at which time a stent was placed to LAD coronary artery. In order to protect your stent from blood clots forming, you will need to remain on two antiplatelet medications called aspirin and plavix for a minimum of one year. After this time, your purchasing analyst will determine if you need to continue [...] away. Stay on the phone. The emergency bone char kiln operator will tell you what to do. [...] appointments: During 8am-5pm Tuesday through Tuesday call [phone] to speak with a nurse in the cardiology clinic All other times call [phone] and ask to speak to the bead stringer universal branch consultant. Follow up Appointments: PCP Alexia Mtz, STORE CASHIER [phone]. Please call to establish a follow up [...] EKG. Patient transferred via air ambulance to [facility] on 07/29 for LHC and LOW to LAD for 100% occlusion Social History: Pt lives with his in a 1 level home with 2 NAOMI. 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 [...] Total time: 35 (tef) minutes Time IN/OUT: 7911-6317 ZAIDA DUBOSE, PT Pager: [phone] Physical Therapy Inpatient Rehabilitation Department * Yrn Ward MD - 08/03/2024 10:38 AM EST CV HOSPITALIST 2 - [facility] DAILY PROGRESS NOTE Page [phone] to reach a provider 04/04 Admit Date: [...] Compared to the overnight study by the universal branch consultant fellow the impella position is stable. 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 [facility] 07/29/24 Conclusions: * One vessel coronary artery disease (LAD) * Mild pulmonary hypertension * Elevated pulmonary capillary wedge pressure * Successful stent insertion of the proximal LAD lesion * See Dual Antiplatelet (DAPT) Recommendations above * Successful impella placement for cardiogenic shock. Telemetry: I have personally reviewed and interpreted the telemetry from the last 24 hours. [facility] Assessment: ASSESSMENT: Korey Montoya is a 74 y.o. male w/ PMH of hypertension, HLD, and BPH who presents for chief concern of chest pain after being found to have ST elevations on EKG. Patient transferred via air ambulance to [facility] on 07/29 for LHC and LOW to [...] to be determined OT: PCP Alexia Mtz, STORE CASHIER [phone] * Zaida Dubose, PT - 08/02/2024 2:08 PM EST Physical Therapy Evaluation Patient profile: Korey Montoya is a 74 y.o. male w/ PMH of hypertension, HLD, and BPH who presents for chief concern of chest pain after being found to have ST elevations on EKG. Patient transferred via air ambulance to [facility] on 07/29 for LHC and LOW to LAD for 100% occlusion Social History: Pt lives with his in a 1 level home with 2 NAOMI. 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 [...] Total time: 37 (eval) minutes Time IN/OUT: 1737-5400 ZAIDA DUBOSE PT Pager: [phone] Physical Therapy Inpatient Rehabilitation Department * Gagan [...] EKG. Patient transferred via air ambulance to [facility] on 07/29 for LHC and LOW to [...] PCP: Alexia Mtz APRN PCP phone number: [phone] Date of Admission: 07/29/2024 ( Hospital Day 4 days ) Attending:Bridgette Stauffer MD ID: Korey Montoya is a 74 y.o. male w/ PMH of hypertension, HLD, and BPH on Hospital Day4 for chief concern of chest pain after being found to have ST elevations on EKG. Patient transferred via air ambulance to [facility] on 07/29 for LHC and LOW to [...] 07/29/24 1621 PHART 7.48* 7.44 7.38 7.37 [id number] 29* 29* 34* 36 PO2ART 71* 109* 141* 71* KJJ1CPS 20.6 19.4* 19.5* 20.4 VBG (Venous Blood Gas) Recent Labs 07/29/24 1401 PHVEN 7.30* PO2VEN 39 TJI7ABO 20.1* Mixed Venous Sat No results for input(s): M8OLIM8 in the last 168 hours. Objective: Vitals [...] 07/29/24 1621 PHART 7.48* 7.44 7.38 7.37 UCZ0UCS 29* 29* 34* 36 PO2ART 71* 109* 141* 71* CRR0RYM 20.6 19.4* 19.5* 20.4 VBG (Venous Blood Gas) Recent Labs 07/29/24 1401 PHVEN 7.30* PO2VEN 39 YYM0TWJ 20.1* Mixed Venous Sat No results for input(s): L9SCFK2 in the last 168 hours. Microbiology: Microbiology Results (Last 30 days) Procedure Component Value Units Date/Time Blood culture [[id number]] Collected: 07/29/241607 Lab Status: Preliminary result Specimen: Blood, Venous Updated: 08/01/241700 Blood Culture No growth at 72 hours Blood culture [[id number]] Collected: 07/29/241607 Lab Status: Preliminary result Specimen: Blood, Venous Updated: 08/01/241700 Blood Culture No growth at 72 hours Imaging: Results for orders placed or performed during the hospital encounter of 07/29/24 XR Chest One View (Exam End: 07/29/2024 2:30 PM) Result Value WORKSTATION ID [id number] Impression 1. No pulmonary edema. 2. No pleural effusion. 3. No pneumothorax. Thank you for letting us participate in the care of this patient. If you are a health care provider and have any questions regarding this report, please contact the number below. For patients who have questions please contact the health manager medicare that requested your imaging first. Electronically signed by: Chris Candelaria MD, [facility] ([phone]), at 07/29/2024 3:21 PM TTE ( 07/30/24) [...] Compared to the overnight study by the universal branch consultant fellow the impella position is stable. [...] EKG. Patient transferred via air ambulance to [facility] on 07/29 for LHC and LOW to [...] today). Transfer to floor. Krystal Parker MD, [facility], [facility] Staff Supervisor Wet Room baccarat manager * Gagan Catherine MD - 08/01/2024 [...] EKG. Patient transferred via air ambulance to [facility] on 07/29 for LHC and LOW to [...] PCP: Alexia Mtz APRN PCP phone number: [phone] Date of Admission: 07/29/2024 ( Hospital Day 3 days ) Attending:Krystal Parker MD ID: Korey Montoya is a 74 y.o. male w/ PMH of hypertension, HLD, and BPH on Hospital Day3 for chief concern of chest pain after being found to have ST elevations on EKG. Patient transferred via air ambulance to [facility] on 07/29 for LHC and LOW to [...] 07/29/24 1621 PHART 7.48* 7.44 7.38 7.37 THO9GFG 29* 29* 34* 36 PO2ART 71* 109* 141* 71* VRY5LPG 20.6 19.4* 19.5* 20.4 VBG (Venous Blood Gas) Recent Labs 07/29/24 1401 PHVEN 7.30* PO2VEN 39 JSP7NCV 20.1* Mixed Venous Sat No results for input(s): R0ZHFT1 in the last 168 hours. PA Catheter [...] 07/29/24 1621 PHART 7.48* 7.44 7.38 7.37 ANM2UZJ 29* 29* 34* 36 PO2ART 71* 109* 141* 71* SCP3ABC 20.6 19.4* 19.5* 20.4 VBG (Venous Blood Gas) Recent Labs 07/29/24 1401 PHVEN 7.30* PO2VEN 39 RZY2ANJ 20.1* Mixed Venous Sat No results for input(s): N6LDUC7 in the last 168 hours. Microbiology: Microbiology Results (Last 30 days) Procedure Component Value Units Date/Time Blood culture [[id number]] Collected: 07/29/241607 Lab Status: Preliminary result Specimen: Blood, Venous Updated: 07/31/24 170 Blood Culture No growth at 48 hours Blood culture [[id number]] Collected: 07/29/241607 Lab Status: Preliminary result Specimen: Blood, Venous Updated: 07/31/24 170 Blood Culture No growth at 48 hours Imaging: Results for orders placed or performed during the hospital encounter of 07/29/24 XR Chest One View (Exam End: 07/29/2024 2:30 PM) Result Value WORKSTATION ID [id number] Impression 1. No pulmonary edema. 2. No pleural effusion. 3. No pneumothorax. Thank you for letting us participate in the care of this patient. If you are a health care provider and have any questions regarding this report, please contact the number below. For patients who have questions please contact the health manager medicare that requested your imaging first. Electronically signed by: Chris Candelaria MD, [facility] ([phone]), at 07/29/2024 3:21 PM TTE ( 07/30/24) [...] Compared to the overnight study by the universal branch consultant fellow the impella position is stable. [...] EKG. Patient transferred via air ambulance to [facility] on 07/29 for LHC and LOW to [...] him; questions answered. Krystal Parker MD, FAC, [facility] Staff Supervisor Wet Room baccarat manager * Krystal Parker MD - 07/31/2024 [...] EKG. Patient transferred via air ambulance to [facility] on 07/29 for LHC and LOW to [...] PCP: Alexia Mtz APRN PCP phone number: [phone] Date of Admission: 07/29/2024 ( Hospital Day 2 days ) Attending:Krystal Parker MD ID: Korey Montoya is a 74 y.o. male w/ PMH of hypertension, HLD, and BPH on Hospital Day2 for chief concern of chest pain after being found to have ST elevations on EKG. Patient transferred via air ambulance to [facility] on 07/29 for LHC and LOW to [...] 0057 07/29/24 1621 PHART 7.44 7.38 7.37 ZJQ4EIT 29* 34* 36 PO2ART 109* 141* 71* TUX0ZHE 19.4* 19.5* 20.4 VBG (Venous Blood Gas) Recent Labs 07/29/24 1401 PHVEN 7.30* PO2VEN 39 YUA3MIN 20.1* Mixed Venous Sat No results for input(s): E2ODKR3 in the last 168 hours. PA Catheter [...] 0057 07/29/24 1621 PHART 7.44 7.38 7.37 FIF2LFS 29* 34* 36 PO2ART 109* 141* 71* XEV0YRW 19.4* 19.5* 20.4 VBG (Venous Blood Gas) Recent Labs 07/29/24 1401 PHVEN 7.30* PO2VEN 39 LQT3HPG 20.1* Mixed Venous Sat No results for input(s): C4LQXA8 in the last 168 hours. Microbiology: Microbiology Results (Last 30 days) Procedure Component Value Units Date/Time Blood culture [[id number]] Collected: 07/29/241607 Lab Status: Preliminary result Specimen: Blood, Venous Updated: 07/30/241700 Blood Culture No Growth at 18-24 hrs. Blood culture [[id number]] Collected: 07/29/241607 Lab Status: Preliminary result Specimen: Blood, Venous Updated: 07/30/241700 Blood Culture No Growth at 18-24 hrs. Imaging: Results for orders placed or performed during the hospital encounter of 07/29/24 XR Chest One View (Exam End: 07/29/2024 2:30 PM) Result Value WORKSTATION ID [id number] Impression 1. No pulmonary edema. 2. No pleural effusion. 3. No pneumothorax. Thank you for letting us participate in the care of this patient. If you are a health care provider and have any questions regarding this report, please contact the number below. For patients who have questions please contact the health manager medicare that requested your imaging first. Electronically signed by: Chris Candelaria MD, [facility] ([phone]), at 07/29/2024 3:21 PM TTE ( 07/30/24) [...] Compared to the overnight study by the universal branch consultant fellow the impella position is stable. [...] EKG. Patient transferred via air ambulance to [facility] on 07/29 for LHC and LOW to [...] work to optimize volume status while continuing nymkuyn-andihh-rwlazhxvio therapies at this time. Obtain comprehensive TTE. [...] EKG. Patient transferred via air ambulance to [facility] on 07/29 for LHC and LOW to [...] PCP: Yoel Artis APRN PCP phone number: [phone] Date of Admission: 07/29/2024 ( Hospital Day 1 day ) Attending:Aubree Silverio MD ID: Korey Montoya is a 74 y.o. male w/ PMH of hypertension, HLD, and BPH on Hospital Day1 for chief concern of chest pain after being found to have ST elevations on EKG. Patient transferred via air ambulance to [facility] on 07/29 for LHC and LOW to [...] 0057 07/29/24 1621 PHART 7.44 7.38 7.37 QUS5EVN 29* 34* 36 PO2ART 109* 141* 71* ZFY4FLO 19.4* 19.5* 20.4 VBG (Venous Blood Gas) Recent Labs 07/29/24 1401 PHVEN 7.30* PO2VEN 39 UIH3BHF 20.1* Lactate ( Last 12 hours) 1.3 >> 1.2 Mixed Venous Sat No results for input(s): M6EBCN1 in the last 168 hours. PA Catheter [...] 0057 07/29/24 1621 PHART 7.44 7.38 7.37 HXP4AKJ 29* 34* 36 PO2ART 109* 141* 71* CAU3GKJ 19.4* 19.5* 20.4 VBG (Venous Blood Gas) Recent Labs 07/29/24 1401 PHVEN 7.30* PO2VEN 39 AZV9EKR 20.1* Mixed Venous Sat No results for input(s): O9URNZ6 in the last 168 hours. Microbiology: Microbiology Results (Last 30 days) Procedure Component Value Units Date/Time Blood culture [[id number]] Collected: 07/29/24 160 Lab Status: In process Specimen: Blood, Venous Updated: 07/29/24 162 Blood culture [[id number]] Collected: 07/29/241607 Lab Status: In process Specimen: Blood, Venous Updated: 07/29/24 161 Imaging: Results for orders placed or performed during the hospital encounter of 07/29/24 XR Chest One View (Exam End: 07/29/2024 2:30 PM) Result Value WORKSTATION ID [id number] Impression 1. No pulmonary edema. 2. No pleural effusion. 3. No pneumothorax. Thank you for letting us participate in the care of this patient. If you are a health care provider and have any questions regarding this report, please contact the number below. For patients who have questions please contact the health manager medicare that requested your imaging first. Electronically signed by: Chris Candelaria MD, [facility] ([phone]), at 07/29/2024 3:21 PM Medications Scheduled Meds: [...] EKG. Patient transferred via air ambulance to [facility] on 07/29 for LHC and LOW to [...] Medicine, PGY-1 Cardiology, [facility] 07/30/24 10:41 AM documented in this [...] EKG. Patient transferred via air ambulance to [facility] on 07/29 for LHC and LOW to [...] EKG. Was transferred via air ambulance to [facility] for further management and [facility] demo nstrated 100% occlusion. No significant RCA, [...] mouth. Past Week nitroGLYcerin (NITROLINGUAL) 400 mcg/spray Allen, Non-Aerosol 1 spray to anus for proctalgia [...] 3.5 guiding catheter and a 3.5 [address] [place] [employer] [address] 20 Mhz using Manual pullback. Imaging [...] A premounted 3.00 x 22 mm Jeison Milton (LOW) was deployed with a maximum inflation [...] A premounted 3.00 x 08 mm Jeison Milton (LOW) was deployed with a maximum inflation [...] a limited study performed by a fellow universal branch consultant to evaluate for cardiogenic shock with [...] Compared to the overnight study by the universal branch consultant fellow the impella position is stable. [...] EKG. Patient transferred via air ambulance to [facility] on 07/29 for LHC and LOW to [...] PCP: Yoel Artis APRN PCP phone number: [phone] Date of Admission: 07/29/2024 ( Hospital Day 0 days ) Attending:Aubree Silverio MD ID: Korey Montoya is a 74 y.o. male w/ PMH of hypertension, HLD, and BPH who presents for chief concern of chest pain after being found to have ST elevations on EKG. Patient transferred via air ambulance to [facility] on 07/29 for LHC and LOW to LAD for 100% occlusion. HPI: Korey Montoya is a 74 y.o. male w/ PMH of hypertension, HLD, and BPH who presents for chief concern of chest pain after being found to have ST elevations on EKG. Patient transferred via air ambulance to [facility] on 07/29 for LHC and LOW to [...] EKG. Was transferred via air ambulance to [facility] for further management and LHC demonstrated 100% [...] Blood Gas) No results for input(s): PHART, IRZ0HTU, PO2ART, YFZ9GAP, LACTATEVEN, WSR1THV, PFRATIOART2 in the last 168 hours. VBG (Venous Blood Gas) Recent Labs 07/29/24 1401 PHVEN 7.30* PO2VEN 39 QCQ5NSH 20.1* Mixed Venous Sat No results for input(s): O7RSSD3 in the last 168 hours. PA Catheter [...] Blood Gas) No results for input(s): PHART, GYM0DAH, PO2ART, EVF9YBW, LACTATEVEN, HLR6EZF, PFRATIOART2 in the last 168 hours. VBG (Venous Blood Gas) Recent Labs 07/29/24 1401 PHVEN 7.30* PO2VEN 39 BMN5FKU 20.1* Mixed Venous Sat No results for input(s): N4OAYQ0 in the last 168 hours. Microbiology: Microbiology [...] EKG. Patient transferred via air ambulance to [facility] on 07/29 for [facility]. Found to have 100% occlusion of LAD [...] MD, FACP, FACC Section of Cardiovascular Medicine [facility] Panelboard Operatorbone cooking operator [employer] This patient meets or has met medical [...] ease. Good wave form. Ivan Hernandez MD Securities Vault Supervisor Associated attestation - Rolando Yeh MD [...] RN - 08/03/2024 11:59 AM EST Korey Monotya was seen today by Cardiac Rehabilitation for: [...] an outpatient cardiac rehabilitation program at [facility] was discussed. Patient agrees to [...] MEDICARE Payor: AAR MANAGED MEDICARE / Plan: [facility]TE / [...] of Discharge: 08/04/2024 Gaby Wong RN, CM [phone] * Initial Assessments - Char Meza OT - 08/03/2024 10:00 AM EST Occupational Therapy Evaluation Patient profile: Korey Montoya is a 74 y.o. male admitted on 07/29/2024 w/ PMH of hypertension, HLD, and BPH who presents for chief concern of chest pain after being found to have ST elevations onEKG. Patient transferred via air ambulance to [facility] on 07/29 for LHC and LOW to [...] evaluation only Total Minutes, Occupational Therapy: 14 ([id number] (evaluation)) 2017 OT Evaluation Code Rationale: Diagnosis [...] and measurable assessment of functional outcome. Pager: [phone] Char Meza OT 08/03/2024 Occupational Therapy Rehabilitation [...] (Interventions Implemented as Appropriate) Flowsheets (Taken 08/01/2024 6741) Outcome Summary: A+O, no pain. NSR. MAP [...] Procedure Note: Patient Name: Korey Montoya : [id number] MR#: [id number] Case Date: 07/31/2024 Credit Correspondence Clerk: Surgeons and Role: * Maldonado Luis MD - Primary * Quinten Charles PA - Physician Industrial Workers Preoperative diagnosis: shock, impella Postoperative diagnosis: * same * Procedure(s) performed: Impella removal form right ZIPPER SLIDE ATTACHER Access: Right ZIPPER SLIDE ATTACHER A time-out was conducted prior to the [...] receiving care in [place] must abide by [place] law. The hierarchy [...] The agent with financial power of assistant county attorney or a conservator appointed in [...] In the past 12 months has the [facility], [employer], or water iMER threatened to shut off services in your [...] Mailing Address: [address] [place] [address] Physical Address: [address] [place], [place] Social & Family Supports: All names [...] points: Addiction likely Health/Prescription Coverage: Primary Insurance: [facility] Expect Labs MEDICARE Payor: [facility] MEDICARE / Plan: [employer] RPPO MANAGED MEDICARE COMPLETE / Product Type: *No Product type* / Secondary Insurance: N/A ; Prescription Coverage: Yes Preferred Pharmacy: [address] [address] [place] Status: Patient is a : No Primary Care Provider confirmed: Alexia Mtz, STORE CASHIER [phone] Patient/Caregiver Goals of Treatment: return home Potential [...] 07/29/2024 6:25 PM EST Pt arrived from medical lab technician @ 1400. CXR and EKG [...] Procedure Note: Patient Name: Korey Montoya : [id number] MR#: [id number] Case Date: 07/29/2024 Credit Correspondence Clerk: Surgeons and Role: * Vahe Marvin MD - Primary * Susannah Watts PA - Physician [employer] Preoperative diagnosis: STEMI Postoperative diagnosis: * STEMI, LAD Artery * * Cardiogenic Shock * Procedure(s) performed: [facility] Coronary angiogram Stent insertion coronary IVUS coronary Venous line insert RH [place] Colette Catheter Vascular closure device Ventricular assist [...] x 22 mm to 14 deonna JEISON Milton with LIZ 3 flow. Residual distal disease at distal stent, overlapping distal stent was inserted with 3.0 x 8 mm JEISON Milton. Systolic's in the 80's sustained. Patient re [...] AM EST Office Visit Cardiology at [address] [phone] Mushtaq Murphy, FREDRICK Scheduled Orders [...] 0.40 x10(3)/mc L 08/04/2024 6:39 AM EST CENTRAL [...] ORDERABLE S [facility] [place] [address] * Magnesium (08/04/2024 6:08 AM EST) Pathologist [facility] Magnesium 0.85 0.69 - 1.07 mMol/L 08/04/2024 7:07 AM [facility] Blood VENOUS BLOOD SPECIMEN / Unknown Venipuncture / Unknown 08/04/2024 6:08 AM EST 08/04/2024 6:19 AM EST Bridgette Stauffer MD CHEMISTRY ORDERABLES [facility] [place] [address] * Basic Metabolic Panel (08/04/2024 6:08 AM [...] CHEMISTRY ORDERABLES [facility] [place] [id number] * (ABNORMAL) CBC (with Diff) (08/03/2024 5:16 [...] ORDERABLE S [facility] [place] [address] * Magnesium (08/03/2024 5:16 AM EST) Pathologist [facility] Magnesium 0.89 0.69 - 1.07 mMol/L 08/03/2024 5:56 AM [facility] Blood VENOUS BLOOD SPECIMEN / Unknown Venipuncture / Unknown 08/03/2024 5:16 AM EST 08/03/2024 5:23 AM EST Bridgette Stauffer MD CHEMISTRY ORDERABLES [facility] [place] [address] * (ABNORMAL) Basic Metabolic Panel (08/03/2024 5:16 AM EST) Pathologist [facility] Glucose 98 65 - 199 [...] 145 mMol/L 08/03/2024 5:56 AM [facility] Potassium 4.5 3.5 - 5.0 mMol/L 08/03/2024 5:56 AM [facility] Chloride 106 98 - 107 mMol/L 08/03/2024 5:56 AM [facility] Carbon Dioxide 21(L) 22 - 31 mMol/L 08/03/2024 5:56 AM [facility] Anion Gap 10 5 - 15 mMol/L 08/03/2024 5:56 AM [facility] Calcium 8.3(L) 8.5 - 10.5 mg/dL 08/03/2024 5:56 AM [facility] Est Glomerular Filtration Rate - Male 92 mL/min/1. 73 m?? 08/03/2024 5:56 AM EST [facility] [...] Stauffer MD CHEMISTRY ORDERABLES Performing Organization Address [facility]/ZIP Co de Phone Number [facility] [place] [address] * POC, GLUCOSE (08/02/2024 7:47 AM EST) [...] O RDERABLES [facility] [place] [address] * (ABNORMAL) CBC (with Diff) (08/02/2024 4:20 AM EST) White Blood Cell 8.51 4.00 - 9.50 x10(3)/mc L 08/02/2024 4:50 AM EST [facility] Red Blood Cell 4.41(L) 4.58 - 5.54 x10(6)/mc L 08/02/2024 4:50 AM [facility] Hemoglobin 12.2(L) 13.7 - 16.5 g/dL 08/02/2024 4:50 AM [facility] Hematocrit 35.8(L) 40.5 - 48.5 [...] ORDERABLE S [facility] [place] [address] * Magnesium (08/02/2024 4:20 AM EST) Magnesium 0.79 0.69 - 1.07 mMol/L 08/02/2024 5:06 AM [facility] Blood VENOUS BLOOD SPECIMEN / Unknown Venipuncture / Unknown 08/02/2024 4:20 AM EST 08/02/2024 4:37 AM EST Bridgette Stauffer MD CHEMISTRY ORDERABLES [facility] [place] [address] * (ABNORMAL) Basic Metabolic Panel (08/02/2024 4:20 [...] Stauffer MD CHEMISTRY ORDERABLES Performing Organization Address [facility]/ZIP Co de Phone Number [facility] [place] [address] * Potassium (08/01/2024 8:39 PM EST) [facility] Potassium 4.0 3.5 - 5.0 mMol/L 08/01/2024 9:21 PM EST [facility] Blood VENOUS BLOOD SPECIMEN / Unknown Venipuncture / Unknown 08/01/2024 8:39 PM EST 08/01/2024 8:51 PM EST Aubree Silverio MD CHEMISTRY ORDERABL ES Performing Organization Address [facility] Co de Phone Number [facility] [place] [address] * POC, GLUCOSE (08/01/2024 8:35 PM EST) Glucometer, POC 112 65 - 199 mg/dL 08/01/2024 8:36 PM EST [facility] Comment:Supplemental ranges: <140 mg/dL before meals <180 mg/dL all other times of the day. Blood CAPILLARY BLOOD / Unknown 08/01/2024 8:35 PM EST 08/01/2024 8:36 PM EST Krystal Parker MD POINT OF CARE TEST O RDERABLES Performing Organization Address [facility] Co de Phone Number [facility] [place] [address] * POC, GLUCOSE (08/01/2024 4:55 PM EST) [...] Performing Organization Address City/[facility] Co de Phone Number [facility] [place] [address] * POC, GLUCOSE (08/01/2024 12:42 PM EST) Glucometer, POC 130 65 - 199 mg/dL 08/01/2024 12:43 PM EST [facility] Comment:Supplemental ranges: <140 mg/dL before meals <180 mg/dL all other times of the day. Blood CAPILLARY BLOOD / Unknown 08/01/2024 12:42 PM EST 08/01/2024 12:43 PM EST Krystal Parker MD POINT OF CARE TEST O JOSH Performing Organization Address [facility] Co de Phone Number [facility] [place] [address] * (ABNORMAL) Cooximetry, POC (08/01/2024 10:45 AM EST) pO2, Coox 32 mmHg 08/01/2024 10:48 AM EST [facility] Hemoglobin, Coox 12.9(L) 13.7 - 16.5 g/dL 08/01/2024 10:48 AM EST [facility] Oxyhemoglobin, Coox 66.7 % 08/01/2024 10:48 AM EST [facility] Carboxyhemoglo bin, Coox 1.1 % 08/01/2024 10:48 AM EST [facility] Comment: Nonsmokers: 0.5-1.5% COHB ?? Smokers: Variable ??but usually less than 10% ?? Toxic: 20-30% COHB ?? Lethal: Greater than 60% COHB Methemoglobin, Coox 0.3 <=1.5 % 08/01/2024 10:48 AM EST [facility] Blood (Mixed Venous) 08/01/2024 10:45 AM EST 08/01/2024 10:48 AM EST Krystal Parker MD POINT OF CARE TEST O JOSH Performing Organization Address [facility] Co de Phone Number [facility] [place] [address] * Potassium (08/01/2024 8:20 AM EST) Pathologist [facility] Potassium 4.0 3.5 - 5.0 mMol/L 08/01/2024 10:17 AM EST [facility] Blood ARTERIAL BLOOD / Unknown Venipuncture / Unknown 08/01/2024 8:20 AM EST 08/01/2024 8:30 AM EST Aubree Silverio MD CHEMISTRY ORDERABL ES Performing Organization Address [facility] de Phone Number [facility] [place] [address] * POC, GLUCOSE (08/01/2024 7:44 AM EST) Glucometer, POC 86 65 - 199 mg/dL 08/01/2024 7:44 AM EST [facility] Comment:Supplemental ranges: <140 mg/dL before meals <180 mg/dL all other times of the day. Blood CAPILLARY BLOOD / Unknown 08/01/2024 7:44 AM EST 08/01/2024 7:44 AM EST Krystal Parker MD POINT OF CARE TEST O RDERASHAY Performing Organization Address [facility] Co de Phone Number [facility] [place] [address] * (ABNORMAL) CBC (with Diff) (08/01/2024 4:18 AM EST) White Blood Cell 8.51 4.00 - 9.50 x10(3)/mc L 08/01/2024 4:53 AM [facility] Red Blood Cell 4.12(L) 4.58 [...] ORDERABLE S [facility] [place] [address] * Magnesium (08/01/2024 4:18 AM EST) Magnesium 0.74 0.69 - 1.07 mMol/L 08/01/2024 5:00 AM [facility] Blood VENOUS BLOOD SPECIMEN / Unknown Venipuncture / Unknown 08/01/2024 4:18 AM EST 08/01/2024 4:29 AM EST Bridgette Stauffer MD CHEMISTRY ORDERABLES [facility] [place] [address] * (ABNORMAL) Basic Metabolic Panel (08/01/2024 4:18 [...] Stauffer MD CHEMISTRY ORDERABLES Performing Organization Address [facility] Co de Phone Number [facility] [place] [address] * POC, GLUCOSE (07/31/2024 8:41 PM EST) [...] CARE TEST O RDERABLES Performing Organization Address [facility] Co de Phone Number [facility] [place] [address] * CARDIAC CATHETERIZATION (07/31/2024 5:53 PM EST) Anatomical Region Laterality Modality Other Narrative 08/01/2024 12:37 PM EST ?[facility] ? Cardiac Catheterization/Intervention Report ? Patient Name: Korey Montoya. ? Procedure Date: 07/31/2024 ? A #: [id number] ? Primary Physician: Janelle, Maldonado T ? Case #: [id number] ? File Name: [id number] ? Catheterization Order Number: [id number] ? [facility] ? Final Report [place], [place] ? Patient Name: ? Korey P. Montoya ?ID#: ?[id number] ? : ?1950 ? Procedure Date: ? [...] ? Comments: ?Impella removed from the right ZIPPER SLIDE ATTACHER with deployment of Perclose and ?Angioseal. ??Good [...] Procedure Note Maldonado Luis MD - 08/01/2024 [facility] Cardiac Catheterization/Intervention Report Patient Name: Korey Montoya Procedure Date: 07/31/2024 A #: [id number] Primary Physician: Maldonado Luis Case #: [id number] File Name: [id number] Catheterization Order Number: [id number] [facility] FinalReport [place], [place] Patient Name: Korey Montoya ID#:[id number] :1950 Procedure Date: July 31, 2024 Case [...] was designated as ASA Class IV. [facility] clinical frailtyscale is 4: Vulnerable. [...] procedures. Comments: Impella removed from the right ZIPPER SLIDE ATTACHER with deployment of Perclose and Angioseal. Good [...] POC, GLUCOSE (07/31/2024 11:04 AM EST) [facility] Glucometer, POC 82 65 - 199 mg/dL 07/31/2024 11:04 AM EST [facility] Comment:Supplemental ranges: <140 mg/dL before meals <180 mg/dL all other times of the day. Blood CAPILLARY BLOOD / Unknown 07/31/2024 11:04 AM EST 07/31/2024 11:04 AM EST Krystal Parker MD POINT OF CARE TEST O RDERABLES [facility] [place] [address] * (ABNORMAL) Blood Gas, Arterial POC (07/31/2024 8:29 AM EST) Pathologist [facility] pH, Arterial 7.48(H) 7.35 - [...] Performing Organization Address City/[facility] Co de Phone Number [facility] [place] [address] * POC, GLUCOSE (07/31/2024 7:47 AM EST) [facility] Glucometer, POC 82 65 - 199 mg/dL 07/31/2024 7:53 AM EST [facility] Comment:Supplemental ranges: <140 mg/dL before meals <180 mg/dL all other times of the day. Blood CAPILLARY BLOOD / Unknown 07/31/2024 7:47 AM EST 07/31/2024 7:53 AM EST Krystal Parker MD POINT OF CARE TEST O JOSH Performing Organization Address [facility] Co de Phone Number [facility] [place] [address] * (ABNORMAL) CBC (with Diff) (07/31/2024 1:08 AM EST) White Blood Cell 10.25(H) 4.00 - 9.50 x10(3)/mc L 07/31/2024 1:28 AM EST [facility] Red Blood Cell 4.13(L) 4.58 - 5.54 x10(6)/mc L 07/31/2024 1:28 AM EST [facility] Hemoglobin 11.2(L) 13.7 - 16.5 g/dL 07/31/2024 1:28 AM EST [facility] Hematocrit 33.9(L) 40.5 - [...] 0.90 x10(3)/mc L 07/31/2024 1:28 AM EST [facility] Eos % 0.1 % 07/31/2024 1:28 AM [facility] Eos Absolute <0.04 0.00 - 0.40 x10(3)/mc L 07/31/2024 1:28 AM EST [facility] Basophil % 0.3 % 07/31/2024 1:28 AM [facility] Baso Absolute <0.04 0.00 - 0.10 x10(3)/mc L 07/31/2024 1:28 AM [facility] Immature Gran % 0.2 % 1:28 AM [facility] Immature Gran Absolute <0.04 0.00 - 0.04 x10(3)/mc L 07/31/2024 1:28 AM [facility] Blood VENOUS BLOOD SPECIMEN / Unknown Venipuncture / Unknown 07/31/2024 1:08 AM EST 07/31/2024 1:18 AM EST Bridgette Stauffer MD HEMATOLOGY ORDERABLE S [facility] [place] [address] * Magnesium (07/31/2024 1:08 AM EST) Magnesium 0.89 0.69 - 1.07 mMol/L 07/31/2024 1:46 AM EST [facility] Blood VENOUS BLOOD SPECIMEN / Unknown Venipuncture / Unknown 07/31/2024 1:08 AM EST 07/31/2024 1:18 AM EST Bridgette Stauffer MD CHEMISTRY ORDERABLES [facility] [place] [address] * (ABNORMAL) Basic Metabolic Panel (07/31/2024 1:08 AM EST) Glucose 97 65 - 199 mg/dL 07/31/2024 1:46 AM [facility] Comment:Glucose Concentratio n >=200 mg/dL plus symptoms is consistent with Diabetes Mellitus. Blood Urea Nitrogen 11 10 - 20 mg/dL 07/31/2024 1:46 AM [facility] Creatinine 0.96 0.80 - 1.50 mg/dL 07/31/2024 1:46 AM [facility] Sodium 140 135 - 145 mMol/L 07/31/2024 1:46 AM [facility] Potassium 4.1 3.5 - 5.0 mMol/L 07/31/2024 1:46 AM [facility] Chloride 110(H) 98 - 107 [...] Stauffer MD CHEMISTRY ORDERABLES Performing Organization Address [facility] Co de Phone Number [facility] [place] [address] * (ABNORMAL) Hepatic Function Panel (07/31/2024 1:08 [...] Parker MD CHEMISTRY ORDERABLES Performing Organization Address City/[facility]/ZIP Co de Phone Number [facility] [place] [address] * POC, GLUCOSE (07/30/2024 8:03 PM EST) [...] Performing Organization Address City/[facility]/ZIP Co de Phone Number [facility] [place] [address] * Potassium (07/30/2024 8:03 PM EST) Potassium 3.8 3.5 - 5.0 mMol/L 07/30/2024 9:13 PM EST [facility] Blood VENOUS BLOOD SPECIMEN / Unknown Venipuncture / Unknown 07/30/2024 8:03 PM EST 07/30/2024 8:22 PM EST Aubree Silverio MD CHEMISTRY ORDERABL ES Performing Organization Address [facility] Co de Phone Number [facility] [place] [address] * POC, GLUCOSE (07/30/2024 6:23 PM EST) [...] Performing Organization Address City/[facility]/ZIP Co de Phone Number [facility] [place] [address] * POC, GLUCOSE (07/30/2024 5:08 PM EST) Glucometer, POC 78 65 - 199 mg/dL 07/30/2024 5:08 PM EST [facility] Comment:Supplemental ranges: <140 mg/dL before meals <180 mg/dL all other times of the day. Blood CAPILLARY BLOOD / Unknown 07/30/2024 5:08 PM EST 07/30/2024 5:08 PM EST Krystal Parker MD POINT OF CARE TEST O RDERABLES Performing Organization Address [facility] Co de Phone Number [facility] [place] [address] * (ABNORMAL) Phosphorus (07/30/2024 3:08 PM EST) Phosphorus 2.1(L) 2.5 - 4.5 mg/dL 07/30/2024 3:58 PM EST [facility] Blood VENOUS BLOOD SPECIMEN / Unknown Venipuncture / Unknown 07/30/2024 3:08 PM EST 07/30/2024 3:12 PM EST Aubree Silverio MD CHEMISTRY ORDERABL ES Performing Organization Address [facility] Co de Phone Number [facility] [place] [address] * Magnesium (07/30/2024 3:08 PM EST) Magnesium 0.90 0.69 - 1.07 mMol/L 07/30/2024 3:58 PM EST [facility] Blood VENOUS BLOOD SPECIMEN / Unknown Venipuncture / Unknown 07/30/2024 3:08 PM EST 07/30/2024 3:12 PM EST Aubree Silverio MD CHEMISTRY ORDERABL ES Performing Organization Address [facility] Co de Phone Number [facility] [place] [address] * (ABNORMAL) Basic Metabolic Panel (07/30/2024 3:08 [...] 135 - 145 mMol/L 07/30/2024 4:17 PM [facility] Potassium 3.4(L) 3.5 - 5.0 [...] ORDERABL ES [facility] [place] [address] * ECHO LMTD W CONTRAST W LMTD SPEC DOPP COLOR DOPP (07/30/2024 11:42 AM EST) Anatomical Region Laterality Modality Cardiac Other 07/30/2024 10:2 2 AM EST Narrative 07/30/2024 12:34 PM EST [address] [place] [id number] ? Echocardiogram Report Name: KOREY MONTOYA ? Study Date: 07/30/2024 10:22 AMBP: 124/66 mmHg : 1950 ? Height: 168 cm ? Account: [id number] Age: 74 yrs ? Weight: 65 kg Gender: Male ?BSA: 1.7 m2 Ordering Physician: Aubree Silverio MD Referring Physician: CHAPARRO FERRERA Performed By: OMERO Millan Reason For Study: ST elevation myocardial infarction involving left anterior descending (LAD) coronary artery Interpreting Fellow: Ivan Hernandez. Exam Location: [facility]. Interpretation Summary Left ventricle is [...] Compared to the overnight study by the universal branch consultant fellow the impella position is stable. 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 Procedure Limited - 19399. Image enhancement Definity was used for both [...] mmHg : 1950 Height: 168 cm Account: [id number] Age: 74 yrs Weight: 65 kg Gender: Male BSA: 1.7 m2 Ordering Physician: Aubree Silverio MD Referring Physician: CHAPARRO FERRERA Performed By: OMERO Millan Reason For Study: ST elevation myocardial infarction involving leftanterior descending (LAD) coronary artery Interpreting Fellow: Ivan Hernandez. Exam Location: [facility]. Interpretation Summary Left ventricle is [...] Compared to the overnight study by the universal branch consultant fellow the impella positionis stable. The global left ventricular systolic function has improvedpredominantly via recruitment outside the LAD territory which remains akinetic. Procedure Limited - 56766. Image enhancement Definity was used for both [...] POC, GLUCOSE (07/30/2024 11:17 AM EST) Pathologist [facility] Glucometer, POC 97 65 - 199 mg/dL 07/30/2024 11:17 AM EST [facility] Comment:Supplemental ranges: <140 mg/dL before meals <180 mg/dL all other times of the day. Blood CAPILLARY BLOOD / Unknown 07/30/2024 11:17 AM EST 07/30/2024 11:17 AM EST Aubree Silverio MD POINT OF CARE TEST ORDERABLES [facility] [place] [address] * (ABNORMAL) Blood Gas, Arterial POC (07/30/2024 8:16 AM EST) pH, Arterial 7.44 7.35 - 7.45 07/30/2024 8:17 AM EST [facility] PCO2, Arterial 29(L) 35 - 45 mmHg 07/30/2024 8:17 AM [facility] PO2, Arterial 109(H) 85 - 104 mmHg 07/30/2024 8:17 AM [facility] Bicarbonate, Arterial 19.4(L) 20.0 - [...] - 1.33 mmol/L 07/30/2024 8:17 AM EST [facility] Blood ARTERIAL BLOOD / Unknown 07/30/2024 8:16 AM EST 07/30/2024 8:17 AM EST Aubree Silverio MD POINT OF CARE TEST ORDERABLES [facility] [place] [address] * (ABNORMAL) Troponin - Single (07/30/2024 8:09 [...] can be found in the [facility] Laboratory Test Catalog Troponin - [email or web address]/[email or web address] Reference: Fourth [place] Definition of Myocardial Infarction. Journal of the [place] [employer] 2018;72:3255-0186 Blood VENOUS BLOOD SPECIMEN / Unknown Venipuncture / Unknown 07/30/2024 8:09 AM EST 07/30/2024 8:26 AM EST Aubree Silverio MD CHEMISTRY ORDERABL ES Performing Organization Address City/[facility]/ZIP Co de Phone Number [facility] [place] [address] * POC, GLUCOSE (07/30/2024 7:40 AM EST) [facility] Glucometer, POC 111 65 - 199 mg/dL 07/30/2024 7:40 AM EST [facility] Comment:Supplemental ranges: <140 mg/dL before meals <180 mg/dL all other times of the day. Blood CAPILLARY BLOOD / Unknown 07/30/2024 7:40 AM EST 07/30/2024 7:40 AM EST Aubree Silverio MD POINT OF CARE TEST ORDERABLES Performing Organization Address [facility] Co de Phone Number [facility] [place] [address] * (ABNORMAL) CBC (with Diff) (07/30/2024 2:11 AM EST) [facility] White Blood Cell 11.25(H) 4.00 - 9.50 [...] % 0.2 % 07/30/2024 2:33 AM EST [facility] Baso Absolute <0.04 0.00 - 0.10 x10(3)/mc L 07/30/2024 2:33 AM EST [facility] Immature Gran % 0.4 % 2:33 AM EST [facility] Immature Gran Absolute 0.05(H) 0.00 - 0.04 x10(3)/mc L 07/30/2024 2:33 AM EST [facility] Blood VENOUS BLOOD SPECIMEN / Unknown Venipuncture / Unknown 07/30/2024 2:11 AM EST 07/30/2024 2:22 AM EST Bridgette Stauffer MD HEMATOLOGY ORDERABLE S [facility] [place] [address] * Magnesium (07/30/2024 2:11 AM EST) Pathologist [facility] Magnesium 1.01 0.69 - 1.07 mMol/L 07/30/2024 2:51 AM EST [facility] Blood VENOUS BLOOD SPECIMEN / Unknown Venipuncture / Unknown 07/30/2024 2:11 AM EST 07/30/2024 2:22 AM EST Bridgette Stauffer MD CHEMISTRY ORDERABLES [facility] [place] [address] * (ABNORMAL) Basic Metabolic Panel (07/30/2024 2:11 AM EST) Glucose 190 65 - 199 mg/dL 07/30/2024 2:51 AM EST [facility] Comment:Glucose Concentratio n >=200 mg/dL plus symptoms is consistent with Diabetes Mellitus. Blood Urea Nitrogen 15 10 - 20 mg/dL 07/30/2024 2:51 AM EST [facility] Creatinine 0.88 0.80 - 1.50 mg/dL 07/30/2024 2:51 AM EST [facility] Sodium 135 135 - 145 mMol/L 07/30/2024 2:51 AM EST [facility] Potassium 4.9 3.5 - 5.0 mMol/L 07/30/2024 2:51 AM [facility] Chloride 105 98 [...] CHEMISTRY ORDERABLES [facility] [place] [address] * (ABNORMAL) Cooximetry, POC (07/30/2024 1:00 AM [...] OF CARE TEST ORDERABLES Performing Organization Address City/State/[facility] Co de Phone Number [facility] [place] [address] * (ABNORMAL) Blood Gas, Arterial POC (07/30/2024 [...] TEST ORDERABLES [facility] [place] [address] * (ABNORMAL) Troponin - Single (07/29/2024 10:31 PM EST) [facility] Department Troponin-T, [...] can be found in the [facility] Test Catalog Troponin - [email or web address]/catalogs/565/files/19039 Reference: Fourth [place] Definition of Myocardial Infarction. Journal of the [employer] 2018;72:1077-3827 Blood VENOUS BLOOD SPECIMEN / Unknown Venipuncture / Unknown 07/29/2024 10:31 PM EST 07/29/2024 10:36 PM EST Yrn Ward MD CHEMISTRY ORDERABL ES [facility] [place] [address] * Potassium (07/29/2024 8:11 PM EST) Pathologist [facility] Potassium 4.1 3.5 - 5.0 mMol/L 07/29/2024 8:52 PM EST [facility] Blood VENOUS BLOOD SPECIMEN / Unknown Venipuncture / Unknown 07/29/2024 8:11 PM EST 07/29/2024 8:16 PM EST Aubree Silverio MD CHEMISTRY ORDERABL ES Performing Organization Address [facility]/ZIP Co de Phone Number [facility] [place] [address] * (ABNORMAL) Troponin - Single (07/29/2024 8:11 [...] can be found in the [facility] Test Catalog Troponin - [email or web address]/catalogs/565/files/59401 Reference: Fourth [place] Definition of Myocardial Infarction. Journal of the [place] College of [employer]iology 2018;72:0665-8759 Blood VENOUS BLOOD SPECIMEN / Unknown Venipuncture / Unknown 07/29/2024 8:11 PM EST 07/29/2024 8:16 PM EST Aubree Silverio MD CHEMISTRY ORDERABL ES [facility] [place] [address] * (ABNORMAL) Phosphorus (07/29/2024 8:11 PM EST) Phosphorus 2.1(L) 2.5 - 4.5 mg/dL 07/29/2024 8:52 PM EST [facility] Blood VENOUS BLOOD SPECIMEN / Unknown Venipuncture / Unknown 07/29/2024 8:11 PM EST 07/29/2024 8:16 PM EST Aubree Silverio MD CHEMISTRY ORDERABL ES Performing Organization Address [facility] Co de Phone Number [facility] [place] [address] * POC, GLUCOSE (07/29/2024 8:09 PM EST) [facility] Glucometer, POC 142 65 - 199 mg/dL 07/29/2024 8:09 PM EST [facility] Comment:Supplemental ranges: <140 mg/dL before meals <180 mg/dL all other times of the day. Blood CAPILLARY BLOOD / Unknown 07/29/2024 8:09 PM EST 07/29/2024 8:09 PM EST Aubree Silverio MD POINT OF CARE TEST ORDERABLES Performing Organization Address [facility] Co de Phone Number [facility] [place] [address] * ABORH RECHECK (07/29/2024 6:43 PM EST) ABORH Recheck AB POSITIVE 07/29/2024 10:13 PM EST [facility] LABORAT[facility] Blood VENOUS BLOOD SPECIMEN / Unknown Venipuncture / Unknown 07/29/2024 6:43 PM EST 07/29/2024 7:15 PM EST Aubree Silverio MD BLOOD BANK LAB ORD ERABLES Performing Organization Address City/[facility]/ZIP Co de Phone Number [facility] [place] [address] * POC, GLUCOSE (07/29/2024 5:57 PM EST) [facility] Glucometer, POC 166 65 - 199 mg/dL 07/29/2024 5:57 PM EST [facility] Comment:Supplemental ranges: <140 mg/dL before meals <180 mg/dL all other times of the day. Blood CAPILLARY BLOOD / Unknown 07/29/2024 5:57 PM EST 07/29/2024 5:57 PM EST Aubree Silverio MD POINT OF CARE TEST ORDERABLES [facility] [place] [address] * Type and screen ([facility]/CGP/MAGALIE) (07/29/2024 5:56 PM EST) [facility] ABORH Type AB POSITIVE 07/29/2024 9:44 PM EST [facility] LAB[facility] PATIENT HISTORY Not Found 07/29/2024 9:44 PM EST [facility] LAB[facility] Expires at [id number] on: 08/01/2024 07/29/2024 9:44 PM EST [facility] LAB[facility] ANTIBODY SCREEN AUTOMATED Negative 07/29/2024 9:44 PM EST [facility] LAB[facility] T&S only valid at [facility] 07/29/2024 9:44 PM EST [facility] Blood VENOUS BLOOD SPECIMEN / Unknown Venipuncture / Unknown 07/29/2024 5:56 PM EST 07/29/2024 6:07 PM EST Narrative [facility] LAB[facility] - 07/29/2024 9:44 PM EST This Type and Screen result is only valid at the [facility] Aubree Silverio MD BLOOD BANK LAB ORD ERABLES [facility] [place] [address] * (ABNORMAL) Troponin - Single (07/29/2024 4:52 PM EST) [facility] Troponin-T, High Sensitivity >10,000(H ) <=22 [...] can be found in the [facility] Test Catalog Troponin - [email or web address]/catalogs/565/files/27466 Reference: Fourth [place] Definition of Myocardial Infarction. Journal of the [place] [employer]iology 2018;72:2273-4592 Blood VENOUS BLOOD SPECIMEN / Unknown Venipuncture / Unknown 07/29/2024 4:52 PM EST 07/29/2024 4:57 PM EST Aubree Silverio MD CHEMISTRY ORDERABL ES [facility] [place] [address] * EKG 12 Lead (07/29/2024 4:21 PM EST) Ventricular rate 72 BPM MUSE SYSTEM Atrial Rate 72 BPM MUSE SYSTEM P-R Interval 168 ms MUSE SYSTEM QRS Duration 82 ms MUSE SYSTEM Q-T Interval 392 ms MUSE SYSTEM QTC Calculated (Bezet) 429 ms MUSE SYSTEM Calculated P [place] 71 degrees MUSE SYSTEM Calculated R [place] 77 degrees MUSE SYSTEM Calculated T [place] 28 degrees MUSE SYSTEM INTERPRETATION Sinus rhythm [...] TEST ORDERABLES [facility] [place] [address] * POC, GLUCOSE (07/29/2024 4:19 PM EST) Glucometer, POC 185 65 - 199 mg/dL 07/29/2024 4:19 PM [facility] Comment:Supplemental ranges: <140 mg/dL before meals <180 mg/dL all other times of the day. Blood CAPILLARY BLOOD / Unknown 07/29/2024 4:19 PM EST 07/29/2024 4:19 PM EST Aubree Silverio MD POINT OF CARE TEST ORDERABLES Performing Organization Address [facility] Co de Phone Number [facility] [place] [address] * Blood culture (07/29/2024 4:08 PM EST) Blood Culture No growth at 120 hours 08/03/2024 5:01 PM EST [facility] Blood VENOUS BLOOD SPECIMEN / Unknown Venipuncture / Unknown 07/29/2024 4:08 PM EST 07/29/2024 4:15 PM EST Aubree Silverio MD MICROBIOLOGY - BLO OD ORDERABLES Performing Organization Address [facility] [place] [address] * Blood culture (07/29/2024 4:08 PM EST) Blood Culture No growth at 120 hours 08/03/2024 5:01 PM EST [facility] Blood VENOUS BLOOD SPECIMEN / Unknown Venipuncture / Unknown 07/29/2024 4:08 PM EST 07/29/2024 4:26 PM EST Aubree Silverio MD MICROBIOLOGY - BLO OD ORDERABLES Performing Organization Address [facility] Co de Phone Number [facility] [place] [address] * XR Chest One View (07/29/2024 2:30 PM EST) WORKSTATION ID [id number] RAD Anatomical Region Laterality Modality Chest N/A [...] questions please contact the health manager medicare that requested your imaging first. ? Electronically signed by: Chris Candelaria MD, [facility] ([phone]), at 07/29/2024 3:21 PM Narrative 07/29/2024 3:21 [...] have questions please contactthe health manager medicare that requested your imaging first. Electronically signed by: Chris Candelaria MD, [facility]([phone]), at 07/29/2024 3:21 PM Vahe Marvin MD IMG DX ORDERABLES * (ABNORMAL) APTT (07/29/2024 2:03 PM EST) Partial Thromboplastin Time >160(HHH) 25 - 37 sec 07/29/2024 2:56 PM EST [facility] Blood VENOUS BLOOD SPECIMEN / Unknown Venipuncture / Unknown 07/29/2024 2:03 PM EST 07/29/2024 2:13 PM EST Vahe Marvin MD HEMATOLOGY ORDERABLE S Performing Organization Address [facility] Co de Phone Number [facility] [place] [address] * (ABNORMAL) Prothrombin Time (07/29/2024 2:03 PM [...] MD HEMATOLOGY ORDERABLE S Performing Organization Address [facility] Co de Phone Number [facility] [place] [address] * CRP, acute inflammation (07/29/2024 2:03 PM EST) C-Reactive Protein <3.0 <=4.9 mg/L 07/29/2024 2:52 PM [facility] Blood VENOUS BLOOD SPECIMEN / Unknown Venipuncture / Unknown 07/29/2024 2:03 PM EST 07/29/2024 2:14 PM EST Vahe Marvin MD CHEMISTRY ORDERABLES [facility] [place] [address] * Lipid Panel (Reflex Direct LDL) (07/29/2024 [...] [facility] - 07/29/2024 2:52 PM [...] ACC/AHA Guidelines (most recently Rolf et al. [facility] 06/15/22): * For individuals with atherosclerotic [...] Performing Organization Address City/[facility]/ZIP Co de Phone Number [facility] [place] [address] * TSH [place] (07/29/2024 2:03 PM EST) Thyroid Stimulating Hormone 0.70 0.27 - 4.20 mcIU/mL 07/29/2024 2:52 PM EST [facility] Blood VENOUS BLOOD SPECIMEN / Unknown Venipuncture / Unknown 07/29/2024 2:03 PM EST 07/29/2024 2:14 PM EST Vahe Marvin MD CHEMISTRY ORDERABLES Performing Organization Address City/[facility]/ZIP Co de Phone Number [facility] [place] [address] * Hemoglobin A1c (07/29/2024 2:03 PM EST) [...] red blood cell turnover may not be hvac sales representative of glycemic control. Reference Interval: [...] into estimated average glucose values. ??Diabetes Care 2008:31(8):5688-7642. Additional resources are available on the ADA website (diabetes.org). Vahe Marvin MD CHEMISTRY ORDERABLES [facility] [place] [address] * (ABNORMAL) CBC (with Diff) (07/29/2024 2:03 PM EST) White Blood Cell 19.50(H) 4.00 - 9.50 x10(3)/mc L 07/29/2024 2:18 PM EST [facility] Red Blood Cell 4.81 4.58 - 5.54 x10(6)/mc L 07/29/2024 2:18 PM EST [facility] Hemoglobin 13.1(L) 13.7 - [...] 0.10 x10(3)/mc L 07/29/2024 2:18 PM EST [facility] Immature Gran % 0.5 % 2:18 PM EST [facility] Immature Gran Absolute 0.09(H) 0.00 - 0.04 x10(3)/mc L 07/29/2024 2:18 PM EST [facility] Blood VENOUS BLOOD SPECIMEN / Unknown Venipuncture / Unknown 07/29/2024 2:03 PM EST 07/29/2024 2:13 PM EST Vahe Marvin MD HEMATOLOGY ORDERABLE S Performing Organization Address City/[facility]/ZIP Co de Phone Number [facility] [place] [address] * Phosphorus (07/29/2024 2:03 PM EST) Phosphorus 2.5 2.5 - 4.5 mg/dL 07/29/2024 2:52 PM EST [facility] Blood VENOUS BLOOD SPECIMEN / Unknown Venipuncture / Unknown 07/29/2024 2:03 PM EST 07/29/2024 2:14 PM EST Vahe Marvin MD CHEMISTRY ORDERABLES Performing Organization Address City/[facility]/ZIP Co de Phone Number [facility] [place] [address] * Magnesium (07/29/2024 2:03 PM EST) Magnesium 0.70 0.69 - 1.07 mMol/L 07/29/2024 2:52 PM EST [facility] Blood VENOUS BLOOD SPECIMEN / Unknown Venipuncture / Unknown 07/29/2024 2:03 PM EST 07/29/2024 2:14 PM EST Vahe Marvin MD CHEMISTRY ORDERABLES [facility] [place] [address] * (ABNORMAL) Comprehensive metabolic panel (07/29/2024 2:03 [...] 0.5 <=1.3 mg/dL 07/29/2024 3:11 PM EST [facility] Est Glomerular Filtration Rate - Male 91 mL/min/1. 73 m?? 07/29/2024 3:11 PM EST [facility] CHEMISTRY ORDERABLES [facility] [place] [address] * (ABNORMAL) Troponin - Single (07/29/2024 2:03 [...] can be found in the [facility] Test Catalog Troponin - [email or web address]://[email or web address]/catalogs/565/files/76139 Reference: Fourth [place] Definition of Myocardial Infarction. Journal of the [place] College [employer]iology 2018;72:0126-0640 Blood VENOUS BLOOD SPECIMEN / Unknown Venipuncture / Unknown 07/29/2024 2:03 PM EST 07/29/2024 2:14 PM EST Vahe Marvin MD CHEMISTRY ORDERABLES [facility] [place] [address] * (ABNORMAL) Blood Gas, Venous POC (07/29/2024 [...] Venous 0.8 % 07/29/2024 2:02 PM EST [facility] Comment: Nonsmokers: 0.5-1.5% COHB ?? Smokers: Variable ??but usually less than 10% ?? Toxic: 20-30% COHB ?? Lethal: Greater than 60% COHB Methemoglobin, Venous 0.3 <=1.5 % 07/29/2024 2:02 PM EST [facility] Sodium, Venous 137 [...] O RDERABLES [facility] [place] [address] * CARDIAC CATHETERIZATION (07/29/2024 1:20 PM EST) Anatomical Region Laterality Modality Other Narrative 07/29/2024 2:02 PM EST ?[facility] ? Cardiac Catheterization/Intervention Report ? Patient Name: Korey Montoya. ? Procedure Date: 07/29/2024 ? A #: [id number] ? Primary Physician: Shavonne, Vahe S ? Case #: [id number] ? File Name: [id number] ? Catheterization Order Number: [id number] ? [facility] ? Final Report [place], [place] ? Patient Name: ? Korey P. Montoya ?ID#: ?[id number] ? : ?1950 ? Procedure Date: ? July 29, 2024 ?Case #: ? [id number] ? Room: ? 5 ? Case Physician: [...] procedure was Emergent. The indication for ?the medical lab technician visit is ACS less than [...] 3.5 guiding catheter and a 3.[address] [place] [employer] [address] ??20 Mhz using ?Manual pullback. ??Imaging [...] A premounted 3.00 x 22 mm Jeison Milton (LOW) was deployed ? with a maximum [...] ??A premounted 3.00 x 08 mm Jeison Milton (LOW) ? was deployed with a maximum [...] dose administered prior to arrival in the medical lab technician. ?Recommended anti-platelet/anti-thrombotic regimen: ?Start aspirin 81 mg daily now and continue for 12 months then stop. ?Start clopidogrel 75 mg daily now and continue for indefinitely. ?These recommendations are made at the time of the intervention. Patient ?and provider preferences or a changing clinical situation may require ?modification of this regimen. Consult [facility] Interventional Cardiology for ?questions. ?The 1 year [...] able ?to start weaning his inotropes/vasopressors. A [place] Colette catheter was ?placed demonstrating improvement in [...] ventricular assist device insertion, right heart ?catheterization, [place] (flow directed cath) insertion, access site ?angiography, vascular ultrasound, venous line / sheath insert and vascular ?closure device. ? Vahe Marvin M.D. ? Electronically Signed by: Vahe Marvin M.D. ? Report Finalized: 07/29/2024 ??13:55 ? Report Last Ammended: 09/20/2024 ??15:21 ? Procedure Note Vahe Marvin MD - 09/20/2024 [facility] Cardiac Catheterization/Intervention Report Patient Name: Korey Montoya Procedure Date: 07/29/2024 A #: [id number] Primary Physician: Vahe Marvin Case #: [id number] File Name: [id number] Catheterization Order Number: [id number] [facility] FinalReport [place], [place] Patient Name: Korey Montoya ID#:[id number] :1950 Procedure Date: July 29, 2024 Case [...] was designated as ASA Class IV. The [facility] clinical frailtyscale is 4: Vulnerable. Diagnostic Tests: Electrocardiography: EKG was assessed by ECG. EKG was Abnormal. EKG showed STDeviation >= 0.5 mm. Medications Prior to Procedure: Angiotensin II Receptor Elvis and Statin. Indications for Diagnostic Cath: The priority of the diagnostic procedure was Emergent. Theindication for the medical lab technician visit is ACS less than [...] 3.5 guiding catheter and a 3.[address] [place] [address] 20 Mhzusing Manual pullback. Imaging was [...] The priority for the procedure was Emergent.[facility] for the procedure was STEMI-Immediate [...] The lesion was predilated with a 2.00mm [id number] MM balloon with a maximum inflation pressure of 12atmospheres. A premounted 3.00 x 22 mm [place] Milton (LOW) wasdeployed with a maximum inflation pressure [...] atmospheres. A premounted 3.00 x 08 mm [place] Milton(LOW) was deployed with a maximum inflation pressure [...] dose administered prior to arrival in the medical lab technician. Recommended anti-platelet/anti-thrombotic regimen: Start aspirin 81 mg daily now and continue for 12 months then stop. Start clopidogrel 75 mg daily now and continue for indefinitely. These recommendations are made at the time of the intervention.Patient and provider preferences or a changing clinical situation mayrequire modification of this regimen. Consult [facility] Interventional Cardiologyfor questions. The 1 year bleeding [...] wereable to start weaning his inotropes/vasopressors. A [place] Colette catheterwas placed demonstrating improvement in his [...] ventricular assist device insertion, right heart catheterization, [place] (flow directed cath) insertion, access site angiography, [...] O RDERABLES [facility] [place] [address] * (ABNORMAL) BLOOD GAS, POC (07/29/2024 12:12 [...] - 26.0 mmol/L 07/30/2024 7:30 AM EST [facility] Carbon Dioxide, POC 21(L) 22 - 31 mmol/L 07/30/2024 7:30 AM EST [facility] Blood VENOUS BLOOD SPECIMEN / Unknown 07/29/2024 12:12 PM EST 07/30/2024 7:30 AM EST Vahe Marvin MD POINT OF CARE TEST O RDERABLES [facility] [place] [address] documented in this encounter Visit Diagnoses Diagnosis [...] based off of anti-Xa levels per the [facility] Anti-Xa Algorithm and inform the ECMO attending. [...] must be infused through a [facility] Bag 07/30/2024 10:25 PM EST 20 [...] must be infused through a [facility] Bag 08/01/2024 5:14 AM EST 20 [...] Routine documented in this encounter Care Teams Kitchen Aide Relationship Specialty Start Date End Date Alexia Mtz, STORE CASHIER [address] [place] [address] PCP - General Family Medicine 07/30/24 documented as of this encounter
--- OUTSIDE RECORDS SUMMARY | 2024-10-19 10:01 | XMS_ITS | Encounter Summary ---
[place] [address] Care Team Providers Care Precinct I Police Sergeant Name Role Phone Alexia Mtz FREDRICK Primary Care Provider [phone] Reason for Visit * Auth/Cert (Routine) Specialty Diagnoses / Procedures Referred By Theodore muro Referred To Contact Diagnoses STEMI (ST elevation myocardial infarction) STEMI Procedures ER SUI Vahe Marvin MD [facility] [place] [address] [facility] Referral ID Status Reason Start Date Expiration Date Visits Re quested Visits Authorized [id number] 1 1 Encounter Details Date Type Department Care Team (Late st Contact Info) Description 07/31/2024 4:30 PM EST - 07/31/2024 5:30 PM EST [place] [address] Maldonado Luis MD [facility] [place] [address] CARDIAC CATHETERIZATION Social History Tobacco Use Types Packs/Day Years Used Date Smoking Tobacco: Former Cigarettes Smokeless Tobacco: Never Alcohol Use Standard Drinks/Week Comments Not Currently 0 (1 standard drink = 0.6 oz pur e alcohol) [facility] Utilities Answer Date Recorded In the past 12 months has [employer] electric, gas, oil, or water company threatened [...] [facility] [place] Gear Hobber Operator . Issues afterhours and on weekends [...] the next year. Access was via right LUGGAGE LINER and this sitewas clean, dry and intact [...] for Chest pain. Replaces: nitroGLYcerin 400 mcg/spray Gobles, Non-Aerosol 0.4 mg Quantity: 90 tablet Refills: [...] Refills: 0 STOPPED Medications nitroGLYcerin 400 mcg/spray Gobles, Non-Aerosol Commonly known as: NITROLINGUAL Replaced by: [...] of one year. After this time, your pedicurist will determine if you need to continue [...] away. Stay on the phone. The emergency processing operator will tell you what to do. [...] appointments: During 8am-5pm Tuesday through Tuesday call [phone] to speak with a nurse in the cardiology clinic All other times call [phone] and ask to speak to the psychology fellow marketing rotation associate. Follow up Appointments: PCP Alexia Mtz, QUARTER INSPECTOR [phone]. Please call to establish a follow up appointment within 1-2 weeks of discharge. Cardiology. Referral to heart failure has been sent. General Instructions None Future Appointments and Orders Future Orders Complete By Expires Referral to Cardiac Rehab [CBO886 Custom] As directed Process Instructions: If no progress note charted, please enter Clinical details in comments. Scheduling Instructions: Questions: My question or request is: STEMI, PCI- cardiac rehab at [facility] Referral to Cardiology [REF12 Custom] As directed [...] of one year. After this time, your pedicurist will determine if you need to continue [...] away. Stay on the phone. The emergency processing operator will tell you what to do. [...] appointments: During 8am-5pm Tuesday through Tuesday call [phone] to speak with a nurse in the cardiology clinic All other times call [phone] and ask to speak to the psychology fellow marketing rotation associate. Follow up Appointments: PCP Alexia Mtz, QUARTER INSPECTOR [phone]. Please call to establish a follow up [...] Note Treatment # 2 Patient profile: Korey Mnotoya is a 74 y.o. male [...] home with 2 NAOMI. 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 He [...] Total time: 35 (tef) minutes Time IN/OUT: 1000-0126 ZAIDA DUBOSE PT Pager: [phone] Physical Therapy Inpatient Rehabilitation Department * Yrn Ward MD - 08/03/2024 10:38 AM EST CV HOSPITALIST 2 - [facility] DAILY PROGRESS NOTE Page [phone] to reach a provider 04/04 Admit Date: [...] or before 29-JUL-2024) Lateral injury pattern ACUTE MA / STEMI Abnormal ECG When compared with [...] Compared to the overnight study by the marketing rotation associate fellow the impella position is stable. 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 [facility] 07/29/24 Conclusions: * One vessel coronary artery disease (LAD) * Mild pulmonary hypertension * Elevated pulmonary capillary wedge pressure * Successful stent insertion of the proximal LAD lesion * See Dual Antiplatelet (DAPT) Recommendations above * Successful impella placement for cardiogenic shock. Telemetry: I have personally reviewed and interpreted the telemetry from the last 24 hours. [facility] Assessment: ASSESSMENT: Korey Montoya is a 74 [...] to be determined OT: PCP Alexia Mtz, QUARTER INSPECTOR [phone] * Zaida Dubose, PT - 08/02/2024 2:08 [...] home with 2 NAOMI. 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 He [...] Total time: 37 (eval) minutes Time IN/OUT: 2201-2145 ZAIDA DUBOSE, PT Pager: [phone] Physical Therapy Inpatient Rehabilitation Department * Gagan [...] P-level 6 at time of transfer to [facility]. CI initially 1.97, improved to 2.2 After impella. Received about 3 L of fluid during procedural course. Patient initially required norepinephrine 30, epinephrine 10, and vasopressin 0.04 for hemodynamic support, which was weaned upon arrival to [facility] to norepinephrine 20and levo 0.04 N [...] PCP: Alexia Mtz APRN PCP phone number: [phone] Date of Admission: 07/29/2024 ( Hospital Day [...] 07/29/24 1621 PHART 7.48* 7.44 7.38 7.37 [id number] 29* 29* 34* 36 PO2ART 71* 109* 141* 71* GZH2KHG 20.6 19.4* 19.5* 20.4 VBG (Venous Blood Gas) Recent Labs 07/29/24 1401 PHVEN 7.30* PO2VEN 39 NEA2SRF 20.1* Mixed Venous Sat No results for input(s): E6KLDC6 in the last 168 hours. Objective: Vitals [...] 07/29/24 1621 PHART 7.48* 7.44 7.38 7.37 NGD3UJO 29* 29* 34* 36 PO2ART 71* 109* 141* 71* WGP9KFL 20.6 19.4* 19.5* 20.4 VBG (Venous Blood Gas) Recent Labs 07/29/24 1401 PHVEN 7.30* PO2VEN 39 VOC5MLL 20.1* Mixed Venous Sat No results for input(s): D0HJEN8 in the last 168 hours. Microbiology: Microbiology Results (Last 30 days) Procedure Component Value Units Date/Time Blood culture [[id number]] Collected: 07/29/241607 Lab Status: Preliminary result Specimen: Blood, Venous Updated: 08/01/241700 Blood Culture No growth at 72 hours Blood culture [[id number]] Collected: 07/29/241607 Lab Status: Preliminary result Specimen: Blood, Venous Updated: 08/01/241700 Blood Culture No growth at 72 hours Imaging: Results for orders placed or performed during the hospital encounter of 07/29/24 XR Chest One View (Exam End: 07/29/2024 2:30 PM) Result Value WORKSTATION ID [id number] Impression 1. No pulmonary edema. 2. No [...] first. Electronically signed by: Chris Candelaria MD, [facility] ([phone]), at 07/29/2024 3:21 PM TTE ( 07/30/24) [...] Compared to the overnight study by the marketing rotation associate fellow the impella position is stable. [...] Susannah Ornelas MD Internal Medicine, PGY-1 Cardiology, [facility] 08/02/24 12:45 PM CARDIOLOGY STAFF NOTE [...] today). Transfer to floor. Krystal Parker MD, [facility] Staff Producer Assistant automobile upholstery trim installer * Gagan Catherine MD - 08/01/2024 11:12 [...] P-level 6 at time of transfer to [facility]. CI initially 1.97, improved to 2.2 After impella. Received about 3 L of fluid during procedural course. Patient initially required norepinephrine 30, epinephrine 10, and vasopressin 0.04 for hemodynamic support, which was weaned upon arrival to [facility] to norepinephrine 20and levo 0.04 N [...] PCP: Alexia Mtz APRN PCP phone number: [phone] Date of Admission: 07/29/2024 ( Hospital Day [...] 07/29/24 1621 PHART 7.48* 7.44 7.38 7.37 BZF7TYQ 29* 29* 34* 36 PO2ART 71* 109* 141* 71* CBU1GYC 20.6 19.4* 19.5* 20.4 VBG (Venous Blood Gas) Recent Labs 07/29/24 1401 PHVEN 7.30* PO2VEN 39 LCL1XPL 20.1* Mixed Venous Sat No results for input(s): Q0JSLG8 in the last 168 hours. PA Catheter [...] 07/29/24 1621 PHART 7.48* 7.44 7.38 7.37 TWY6YWV 29* 29* 34* 36 PO2ART 71* 109* 141* 71* OSL0HIS 20.6 19.4* 19.5* 20.4 VBG (Venous Blood Gas) Recent Labs 07/29/24 1401 PHVEN 7.30* PO2VEN 39 EMU9JUH 20.1* Mixed Venous Sat No results for input(s): Z3YEPR1 in the last 168 hours. Microbiology: Microbiology Results (Last 30 days) Procedure Component Value Units Date/Time Blood culture [[id number]] Collected: 07/29/24 1608 Lab Status: Preliminary result Specimen: Blood, Venous Updated: 07/31/24 170 Blood Culture No growth at 48 hours Blood culture [[id number]] Collected: 07/29/24 1608 Lab Status: Preliminary result Specimen: Blood, Venous Updated: 07/31/24 1701 Blood Culture No growth at 48 hours Imaging: Results for orders placed or performed during the hospital encounter of 07/29/24 XR Chest One View (Exam End: 07/29/2024 2:30 PM) Result Value WORKSTATION ID [id number] Impression 1. No pulmonary edema. 2. No [...] first. Electronically signed by: Chris Candelaria MD, [facility] ([phone]), at 07/29/2024 3:21 PM TTE ( 07/30/24) [...] Compared to the overnight study by the marketing rotation associate fellow the impella position is stable. [...] Susannah Ornelas MD Internal Medicine, PGY-1 Cardiology, [facility] 08/01/24 7:13 AM CARDIOLOGY STAFF NOTE [...] with him; questions answered. Krystal Parker MD, [facility] Staff Producer Assistant automobile upholstery trim installer * Krystal Parker MD - 07/31/2024 1:06 [...] P-level 6 at time of transfer to [facility]. CI initially 1.97, improved to 2.2 After impella. Received about 3 L of fluid during procedural course. Patient initially required norepinephrine 30, epinephrine 10, and vasopressin 0.04 for hemodynamic support, which was weaned upon arrival to [facility] to norepinephrine 20and levo 0.04 N [...] PCP: Alexia Mtz APRN PCP phone number: [phone] Date of Admission: 07/29/2024 ( Hospital Day [...] 0057 07/29/24 1621 PHART 7.44 7.38 7.37 JSS7VSX 29* 34* 36 PO2ART 109* 141* 71* VYC1GVT 19.4* 19.5* 20.4 VBG (Venous Blood Gas) Recent Labs 07/29/24 1401 PHVEN 7.30* PO2VEN 39 LAF8WDS 20.1* Mixed Venous Sat No results for input(s): U8VPXX9 in the last 168 hours. PA Catheter [...] 0057 07/29/24 1621 PHART 7.44 7.38 7.37 EYX5VTS 29* 34* 36 PO2ART 109* 141* 71* GZK6FTQ 19.4* 19.5* 20.4 VBG (Venous Blood Gas) Recent Labs 07/29/24 1401 PHVEN 7.30* PO2VEN 39 ZCO5BPM 20.1* Mixed Venous Sat No results for input(s): M4DYZB4 in the last 168 hours. Microbiology: Microbiology Results (Last 30 days) Procedure Component Value Units Date/Time Blood culture [[id number]] Collected: 07/29/241607 Lab Status: Preliminary result Specimen: Blood, Venous Updated: 07/30/241700 Blood Culture No Growth at 18-24 hrs. Blood culture [[id number]] Collected: 07/29/241607 Lab Status: Preliminary result Specimen: Blood, Venous Updated: 07/30/241700 Blood Culture No Growth at 18-24 hrs. Imaging: Results for orders placed or performed during the hospital encounter of 07/29/24 XR Chest One View (Exam End: 07/29/2024 2:30 PM) Result Value WORKSTATION ID [id number] Impression 1. No pulmonary edema. 2. No [...] first. Electronically signed by: Chris Candelaria MD, [facility] ([phone]), at 07/29/2024 3:21 PM TTE ( 07/30/24) [...] Compared to the overnight study by the marketing rotation associate fellow the impella position is stable. [...] daily in setting of cardiogenic shock Pulmonary #DEISON #dry cough, likely 2/2 atelectasis - continue [...] work to optimize volume status while continuing ruslykr-hhovvi-uqmtswqufc therapies at this time. Obtain comprehensive TTE. [...] P-level 6 at time of transfer to [facility]. CI initially 1.97, improved to 2.2 After impella. Received about 3 L of fluid during procedural course. Patient initially required norepinephrine 30, epinephrine 10, and vasopressin 0.04 for hemodynamic support, which was weaned upon arrival to [facility] to norepinephrine 20and levo 0.04 N [...] PCP: Yoel Artis APRN PCP phone number: [phone] Date of Admission: 07/29/2024 ( Hospital Day [...] Hour Events/Subjective: Yesterday: - Admitted to the [facility] - After his LHC, he demonstrated [...] 0057 07/29/24 1621 PHART 7.44 7.38 7.37 MKN2NWE 29* 34* 36 PO2ART 109* 141* 71* AAG2KTN 19.4* 19.5* 20.4 VBG (Venous Blood Gas) Recent Labs 07/29/24 1401 PHVEN 7.30* PO2VEN 39 RTH9XVB 20.1* Lactate ( Last 12 hours) 1.3 >> 1.2 Mixed Venous Sat No results for input(s): I8FJOC1 in the last 168 hours. PA Catheter [...] 0057 07/29/24 1621 PHART 7.44 7.38 7.37 YXB4EXK 29* 34* 36 PO2ART 109* 141* 71* GAB0QAM 19.4* 19.5* 20.4 VBG (Venous Blood Gas) Recent Labs 07/29/24 1401 PHVEN 7.30* PO2VEN 39 LFT3FZC 20.1* Mixed Venous Sat No results for input(s): I7JTBU9 in the last 168 hours. Microbiology: Microbiology Results (Last 30 days) Procedure Component Value Units Date/Time Blood culture [[id number]] Collected: 07/29/24 1608 Lab Status: In process Specimen: Blood, Venous Updated: 07/29/24 162 Blood culture [[id number]] Collected: 07/29/24 1608 Lab Status: In process Specimen: Blood, Venous Updated: 07/29/24 1615 Imaging: Results for orders placed or performed during the hospital encounter of 07/29/24 XR Chest One View (Exam End: 07/29/2024 2:30 PM) Result Value WORKSTATION ID [id number] Impression 1. No pulmonary edema. 2. No [...] first. Electronically signed by: Chris Candelaria MD, [facility] ([phone]), at 07/29/2024 3:21 PM Medications Scheduled Meds: [...] [facility] [place] for further management and [facility] demo nstrated 100% occlusion. No significant RCA, LMCA, or LCX disease. LOW placed in LAD with some residual distal disease meriting placement of overlapping distal stent. TTE showed apical akinesis and inferior hypokinesis with EF 20%. RHC showed elevated filling pressures. Impella placed and P-level 6 at time of transfer to [facility]. CI initially 1.97, improved to 2.2 After impella. Received about 3 L of fluid during procedural course. Patient initially required norepinephrine, epinephrine, and vasopressin for hemodynamic support, which was weaned upon arrival to [facility] to norepinephrine 20 and levo 0.04 [...] performed by Brandan Mcgovern MD [facility] ENDOSCOPY Significant Family History: Family History Problem [...] mouth. Past Week nitroGLYcerin (NITROLINGUAL) 400 mcg/spray Gobles, Non-Aerosol 1 spray to anus for proctalgia [...] 3.5 guiding catheter and a 3.5 Fr [place] [facility] [place] [address] 20 Mhz using Manual pullback. Imaging [...] atmospheres. A premounted 3.00 x 22 mm [place] Dickey (LOW) was deployed with a maximum inflation [...] atmospheres. A premounted 3.00 x 08 mm [place] Dickey (LOW) was deployed with a maximum inflation [...] a limited study performed by a fellow marketing rotation associate to evaluate for cardiogenic shock with [...] Compared to the overnight study by the marketing rotation associate fellow the impella position is stable. [...] PCP: Yoel Artis APRN PCP phone number: [phone] Date of Admission: 07/29/2024 ( Hospital Day [...] performed by Brandan Mcgovern MD [facility] ENDOSCOPY Family History Family History Problem Relation [...] Blood Gas) No results for input(s): PHART, FWP6ZVV, PO2ART, NQD4BSM, LACTATEVEN, QLZ5LWI, PFRATIOART2 in the last 168 hours. VBG (Venous Blood Gas) Recent Labs 07/29/24 1401 PHVEN 7.30* PO2VEN 39 GEV8TBK 20.1* Mixed Venous Sat No results for input(s): X2WOKK6 in the last 168 hours. PA Catheter [...] Blood Gas) No results for input(s): PHART, SGR3EVK, PO2ART, FOI7ZHF, LACTATEVEN, VKU1VXR, PFRATIOART2 in the last 168 hours. VBG (Venous Blood Gas) Recent Labs 07/29/24 1401 PHVEN 7.30* PO2VEN 39 EVC4MIC 20.1* Mixed Venous Sat No results for input(s): X1PLOG4 in the last 168 hours. Microbiology: Microbiology [...] [facility] [place] [facility] for [facility]. Found to have 100% occlusion of LAD for which he underwent LOW to LAD.Otherwise no other significant vessel disease. Fahad is currently hemodynamically tenuous but improving upon admission to [facility], requiring hemodynamic support with norepinephrine and vasopressin at time of admission along with mechanical support with Impella device. Reassuringly, he demonstrates decreasing pressor requirements since admission to [facility], with epinephrine completely weaned. He does [...] Bernardo Amos MD Internal Medicine, PGY-3 Cardiology, [facility] 07/29/24 3:14 PM Cardiology Attending Note [...] of Cardiovascular Medicine [facility] Transplant Registered Nurseenvironmental air specialist [facility] This patient meets or has met [...] to the planned procedure. Hand Hygiene: The wood heel flap inserter did perform hand hygiene prior to [...] ease. Good wave form. Ivan Hernandez MD Architecture Technician Associated attestation - Rolando Yeh MD [...] Fahad was quite active prior to his MA. 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 Given parameters for home exercise. He follows a heart healthy diet and is not overweight. His lipids are wnl. Participation in an outpatient cardiac rehabilitation program at [facility] was discussed. Patient agrees to a referral [...] No Patient is insured through: Primary Insurance: [facility] MANAGED MEDICARE Payor: [facility] MEDICARE / Plan: AARP RPPO MANAGED [...] CM [phone] * Initial Assessments - Char Meza, OT [...] performed by Brandan Mcgovern MD [facility] ENDOSCOPY Social History: Patient lives with his . Home Setup: 2 NAOMI to a 1 level home. DME: none Baseline ADL/Mobility: Independent with ADLs and IADLs. Enjoys walking. able assist as needed. Precautions/Special Considerations: Full code. Risk for falls. Subjective: I have access to an [employer] weight gym. (Educated to wait for MD [...] evaluation only Total Minutes, Occupational Therapy: 14 (3047-4832 (evaluation)) 2017 OT Evaluation Code Rationale: Diagnosis [...] and measurable assessment of functional outcome. Pager: [phone] Char Meza OT 08/03/2024 Occupational Therapy Rehabilitation [...] (Interventions Implemented as Appropriate) Flowsheets (Taken 08/01/2024 6213) Outcome Summary: A+O, no pain. NSR. MAP [...] Procedure Note: Patient Name: Korey Montoya : [id number] MR#: [id number] Case Date: 07/31/2024 Gear Hobber Operator: Surgeons and Role: * Maldonado Luis MD - Primary * Quinten Charles PA - Physician Phonograph Needle Tip Maker Preoperative diagnosis: shock, impella Postoperative diagnosis: * same * Procedure(s) performed: Impella removal form right LUGGAGE LINER Access: Right LUGGAGE LINER A time-out was conducted prior to the [...] 180 days) Any patient receiving care in [place] must abide by [place] law. The hierarchy [...] In the past 12 months has the [employer] gas, oil, or water [employer] threatened to shut off services in your [...] it) Home Address confirmed as: Mailing Address: [facility] [address] Replaced by [facility] [address] Physical Address: [address] [place], [place] Social & Family Supports: All names [...] points: Addiction likely Health/Prescription Coverage: Primary Insurance: [employer] MANAGED MEDICARE Payor: [employer] MEDICARE / Plan: [facility] COMPLETE / Product Type: *No Product type* / Secondary Insurance: N/A ; Prescription Coverage: Yes Preferred Pharmacy: [address] [address] [place] Status: Patient is a : No Primary Care Provider confirmed: Alexia Mtz, QUARTER INSPECTOR [phone] Patient/Caregiver Goals of Treatment: return home Potential [...] 07/29/2024 6:25 PM EST 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 CXR and EKG completed. [...] Procedure Note: Patient Name: Korey Montoya : [id number] MR#: [id number] Case Date: 07/29/2024 Gear Hobber Operator: Surgeons and Role: * Vahe Marvin MD - Primary * Susannah Watts PA - Physician Phonograph Needle Tip Maker Preoperative diagnosis: STEMI Postoperative diagnosis: * STEMI, LAD Artery * * Cardiogenic Shock * Procedure(s) performed: [facility] Coronary angiogram Stent insertion coronary IVUS coronary Venous line insert C [place] Colette Catheter Vascular closure device Ventricular assist [...] x 22 mm to 14 deonna JEISON Dickey with LIZ 3 flow. Residual distal disease at distal stent, overlapping distal stent was inserted with 3.0 x 8 mm JE[place] Dickey. Systolic's in the 80's sustained. Patient re [...] 9:30 AM EST Appointment Non-Invasive [place] [address] Mushtaq Murphy APRN 10/31/2024 11:00 AM EST Office Visit Cardiology at [address] [address] Mushtaq Murphy, FREDRICK Scheduled Orders Name Type [...] 0.10 x10(3)/mc L 08/04/2024 6:39 AM EST [facility] Immature Gran % 0.3 % [...] [place]/ZIP Co de Phone Number [facility] [place] [address] * Magnesium (08/04/2024 6:08 AM EST) Magnesium 0.85 0.69 - 1.07 mMol/L 08/04/2024 7:[address] [facility] Blood VENOUS BLOOD SPECIMEN / Unknown Venipuncture / Unknown 08/04/2024 6:08 AM EST 08/04/2024 6:19 AM EST Bridgette Stauffer MD CHEMISTRY ORDERABLES [facility] [place] [address] * Basic Metabolic Panel (08/04/2024 6:08 AM [...] Stauffer MD CHEMISTRY ORDERABLES [facility] [place] [address] * (ABNORMAL) CBC (with Diff) (08/03/2024 5:16 AM EST) White Blood Cell 7.85 4.00 - 9.50 x10(3)/mc L 08/03/2024 5:29 AM EST [facility] Red Blood Cell 4.43(L) 4.58 [...] MD HEMATOLOGY ORDERABLE S [facility] [place] [address] * Magnesium (08/03/2024 5:16 AM EST) Magnesium 0.89 0.69 - 1.07 mMol/L 08/03/2024 5:[address] [facility] Blood VENOUS BLOOD SPECIMEN / Unknown Venipuncture / Unknown 08/03/2024 5:16 AM EST 08/03/2024 5:23 AM EST Bridgette Stauffer MD CHEMISTRY ORDERABLES [facility] [place] [address] * (ABNORMAL) Basic Metabolic Panel (08/03/2024 5:16 [...] Stauffer MD CHEMISTRY ORDERABLES Performing Organization Address [facility]/ZIP Co de Phone Number [facility] [place] [address] * POC, GLUCOSE (08/02/2024 7:47 AM EST) [facility] Glucometer, POC 89 65 - 199 mg/dL 08/02/2024 7:47 AM EST [facility] Comment:Supplemental ranges: <140 mg/dL before meals <180 mg/dL all other times of the day. Blood CAPILLARY BLOOD / Unknown 08/02/2024 7:47 AM EST 08/02/2024 7:47 AM EST Krystal Parker MD POINT OF CARE TEST O RDERABLES Performing Organization Address [facility] Co de Phone Number [facility] [place] [address] * (ABNORMAL) CBC (with Diff) (08/02/2024 4:20 [...] - 48.5 % 08/02/2024 4:50 AM EST [facility] Mean Cell Volume 81.2(L) 82.9 [...] 0.90 x10(3)/mc L 08/02/2024 4:50 AM EST [facility] Eos % 1.4 % 08/02/2024 4:50 AM EST [facility] Eos Absolute 0.12 0.00 - 0.40 x10(3)/mc L 08/02/2024 4:50 AM EST [facility] Basophil % 0.4 % 08/02/2024 [...] MD HEMATOLOGY ORDERABLE S [facility] [place] [address] * Magnesium (08/02/2024 4:20 AM EST) Magnesium 0.79 0.69 - 1.07 mMol/L 08/02/2024 5:06 AM EST [facility] Blood VENOUS BLOOD SPECIMEN / Unknown Venipuncture / Unknown 08/02/2024 4:20 AM EST 08/02/2024 4:37 AM EST Bridgette Stauffer MD CHEMISTRY ORDERABLES [facility] [place] [address] * (ABNORMAL) Basic Metabolic Panel (08/02/2024 4:20 [...] Eh MD CHEMISTRY ORDERABLES Performing Organization Address [facility] Co de Phone Number [facility] [place] [id number] * Potassium (08/01/2024 8:39 PM EST) Potassium 4.0 3.5 - 5.0 mMol/L 08/01/2024 9:21 PM EST [facility] Blood VENOUS BLOOD SPECIMEN / Unknown Venipuncture / Unknown 08/01/2024 8:39 PM EST 08/01/2024 8:51 PM EST Jay Silverio MD CHEMISTRY ORDERABL ES Performing Organization Address [facility] de [facility] Number [facility] [place] [address] * POC, GLUCOSE (08/01/2024 8:35 PM EST) Glucometer, POC 112 65 - 199 mg/dL 08/01/2024 8:36 PM EST [facility] Comment:Supplemental ranges: <140 mg/dL before meals <180 mg/dL all other times of the day. Blood CAPILLARY BLOOD / Unknown 08/01/2024 8:35 PM EST 08/01/2024 8:36 PM EST Krystal Parker MD POINT OF CARE TEST O RDERABLES Performing Organization Address [facility] Co de Phone Number [facility] [place] [place] [address] * POC, GLUCOSE (08/01/2024 4:55 PM EST) [...] [place]/ZIP Co de Phone Number [facility] [place] [address] * POC, GLUCOSE (08/01/2024 12:42 PM EST) Glucometer, POC 130 65 - 199 mg/dL 08/01/2024 12:43 PM EST [facility] Comment:Supplemental ranges: <140 mg/dL before meals <180 mg/dL all other times of the day. Blood CAPILLARY BLOOD / Unknown 08/01/2024 12:42 PM EST 08/01/2024 12:43 PM EST Krystal Parker MD POINT OF CARE TEST O JOSH Performing Organization Address [facility] Co de Phone Number [facility] [place] [address] * (ABNORMAL) Cooximetry, POC (08/01/2024 10:45 AM [...] CARE TEST O RDERABLES Performing Organization Address [facility] Co de Phone Number [facility] [place] [address] * Potassium (08/01/2024 8:20 AM EST) Potassium 4.0 3.5 - 5.0 mMol/L 08/01/2024 10:17 AM EST [facility] Blood ARTERIAL BLOOD / Unknown Venipuncture / Unknown 08/01/2024 8:20 AM EST 08/01/2024 8:30 AM EST Jay Silverio MD CHEMISTRY ORDERABL ES Performing Organization Address [facility] Co de Phone Number [facility] [place] [address] * POC, GLUCOSE (08/01/2024 7:44 AM EST) [facility] Glucometer, POC 86 65 - 199 mg/dL 08/01/2024 7:44 AM EST [facility] Comment:Supplemental ranges: <140 mg/dL before meals <180 mg/dL all other times of the day. Blood CAPILLARY BLOOD / Unknown 08/01/2024 7:44 AM EST 08/01/2024 7:44 AM EST Krystal Parker MD POINT OF CARE TEST O RDKAY Performing Organization Address [facility] Co de Phone Number [facility] [place] [address] * (ABNORMAL) CBC (with Diff) (08/01/2024 4:18 [...] MD HEMATOLOGY ORDERABLE S [facility] [place] [address] * Magnesium (08/01/2024 4:18 AM EST) Magnesium 0.74 0.69 - 1.07 mMol/L 08/01/2024 5:[address] [facility] Blood VENOUS BLOOD SPECIMEN / Unknown Venipuncture / Unknown 08/01/2024 4:18 AM EST 08/01/2024 4:29 AM EST Bridgette Stauffer MD CHEMISTRY ORDERABLES [facility] [place] [address] * (ABNORMAL) Basic Metabolic Panel (08/01/2024 4:18 [...] Stauffer MD CHEMISTRY ORDERABLES Performing Organization Address [facility] Co de Phone Number [facility] [place] [address] * POC, GLUCOSE (07/31/2024 8:41 PM EST) [facility] Signature Glucometer, POC 73 65 - 199 mg/dL 07/31/2024 8:41 PM EST [facility] Comment:Supplemental ranges: <140 mg/dL before meals <180 mg/dL all other times of the day. Blood CAPILLARY BLOOD / Unknown 07/31/2024 8:41 PM EST 07/31/2024 8:41 PM EST Krystal Parker MD POINT OF CARE TEST O RDERABLES Performing Organization Address [facility] de Phone Number [facility] [place] [address] * CARDIAC CATHETERIZATION (07/31/2024 5:53 PM EST) Anatomical Region Laterality Modality Other Narrative 08/01/2024 12:37 PM EST ?[facility] ? Cardiac Catheterization/Intervention Report ? Patient Name: Korey Montoya Kyrie. ? Procedure Date: 07/31/2024 ? A #: [id number] ? Primary Physician: Janelle, Maldonado T ? Case #: [id number] ? File Name: [id number] ? Catheterization Order Number: [id number] ? [facility] ? Final Report [place], [place] ? Patient Name: ? Korey P. Montoya ?ID#: ?[id number] ? : ?1950 ? Procedure Date: ? July 31, 2024 ?Case #: ? [id number] ? Room: ? 1 ? Case Physician: [...] ? Comments: ?Impella removed from the right LUGGAGE LINER with deployment of Perclose and ?Angioseal. ??Good [...] Procedure Note Maldonado Luis MD - 08/01/2024 [facility] Cardiac Catheterization/Intervention Report Patient Name: Korey MontoyaToby Procedure Date: 07/31/2024 A #: [id number] Primary Physician: Maldonado Luis Case #: [id number] File Name: [id number] Catheterization Order Number: [id number] [facility] FinalReport [place], [place] Patient Name: Korey Montoya ID#:[id number] :1950 Procedure Date: July 31, 2024 Case [...] procedures. Comments: Impella removed from the right LUGGAGE LINER with deployment of Perclose and Angioseal. Good [...] CARE TEST O RDERABLES [facility] [place] [address] * (ABNORMAL) Blood Gas, Arterial POC (07/31/2024 [...] - 3.0 mmol/L 07/31/2024 8:30 AM EST [facility] Hemoglobin, Arterial 12.3(L) 13.7 - [...] 65 - 199 mg/dL 07/31/2024 8:[address] [facility] Comment:Glucose Concentratio n >=200 mg/dL plus symptoms is consistent with Diabetes Mellitus. Blood ARTERIAL BLOOD / Unknown 07/31/2024 8:29 AM EST 07/31/2024 8:30 AM EST Krystal Parker MD POINT OF CARE TEST O RDERABLES Performing Organization Address City/[facility]/ZIP Co de Phone Number [facility] [place] [address] * POC, GLUCOSE (07/31/2024 7:47 AM EST) [facility] Glucometer, POC 82 65 - 199 mg/dL 07/31/2024 7:[address] [facility] Comment:Supplemental ranges: <140 mg/dL before meals <180 mg/dL all other times of the day. Blood CAPILLARY BLOOD / Unknown 07/31/2024 7:47 AM EST 07/31/2024 7:53 AM EST Krystal Parker MD POINT OF CARE TEST O PEYTONERASHAY Performing Organization Address [facility] Co de Phone Number [facility] [place] [address] * (ABNORMAL) CBC (with Diff) (07/31/2024 1:08 AM EST) [facility] White Blood Cell 10.25(H) 4.00 - [...] [place]/ZIP Co de Phone Number [facility] [place] [address] * Magnesium (07/31/2024 1:08 AM EST) Magnesium 0.89 0.69 - 1.07 mMol/L 07/31/2024 1:[address] [facility] Blood VENOUS BLOOD SPECIMEN / Unknown Venipuncture / Unknown 07/31/2024 1:08 AM EST 07/31/2024 1:18 AM EST Bridgette Stauffer MD CHEMISTRY ORDERABLES [facility] [place] [address] * (ABNORMAL) Basic Metabolic Panel (07/31/2024 1:08 AM EST) Glucose 97 65 - 199 mg/dL 07/31/2024 1:[address] [facility] Comment:Glucose Concentratio n >=200 mg/dL plus symptoms is consistent with Diabetes Mellitus. Blood Urea Nitrogen 11 10 - 20 mg/dL 07/31/2024 1:46 AM EST [facility] Creatinine 0.96 0.80 - 1.50 mg/dL 07/31/2024 1:46 AM EST [facility] Sodium 140 135 - 145 mMol/L 07/31/2024 1:46 AM EST [facility] Potassium 4.1 3.5 - 5.0 mMol/L 07/31/2024 1:[address] [facility] Chloride 110(H) 98 - 107 mMol/L 07/31/2024 1:46 AM EST [facility] Carbon Dioxide 24 22 - 31 mMol/L 07/31/2024 1:46 AM EST [facility] Anion Gap 6 5 - [...] Stauffer MD CHEMISTRY ORDERABLES [facility] [place] [address] * (ABNORMAL) Hepatic Function Panel (07/31/2024 1:08 [...] AM EST Krystal Parker MD CHEMISTRY ORDERABLES [facility] [place] [address] * POC, GLUCOSE (07/30/2024 8:03 PM EST) Glucometer, POC 86 65 - 199 mg/dL 07/30/2024 8:03 PM EST [facility] Comment:Supplemental ranges: <140 mg/dL before meals <180 mg/dL all other times of the day. Blood CAPILLARY BLOOD / Unknown 07/30/2024 8:03 PM EST 07/30/2024 8:03 PM EST Krystal Parker MD POINT OF CARE TEST O RDERABLES [facility] [place] [address] * Potassium (07/30/2024 8:03 PM EST) Potassium 3.8 3.5 - 5.0 mMol/L 07/30/2024 9:13 PM EST [facility] Blood VENOUS BLOOD SPECIMEN / Unknown Venipuncture / Unknown 07/30/2024 8:03 PM EST 07/30/2024 8:22 PM EST Jay Silverio MD CHEMISTRY ORDERABL ES [facility] [place] [address] * POC, GLUCOSE (07/30/2024 6:23 PM EST) [...] [place]/ZIP Co de Phone Number [facility] [place] [address] * POC, GLUCOSE (07/30/2024 5:08 PM EST) Glucometer, POC 78 65 - 199 mg/dL 07/30/2024 5:08 PM EST [facility] Comment:Supplemental ranges: <140 mg/dL before meals <180 mg/dL all other times of the day. Blood CAPILLARY BLOOD / Unknown 07/30/2024 5:08 PM EST 07/30/2024 5:08 PM EST Krystal Parker MD POINT OF CARE TEST O RDERABLES [facility] [place] [address] * (ABNORMAL) Phosphorus (07/30/2024 3:08 PM EST) [facility] Phosphorus 2.1(L) 2.5 - 4.5 mg/dL 07/30/2024 3:58 PM EST [facility] Blood VENOUS BLOOD SPECIMEN / Unknown Venipuncture / Unknown 07/30/2024 3:08 PM EST 07/30/2024 3:12 PM EST Jay Silverio MD CHEMISTRY ORDERABL ES Performing Organization Address City/[facility]/ZIP Co de Phone Number [facility] [place] [address] * Magnesium (07/30/2024 3:08 PM EST) [facility] Magnesium 0.90 0.69 - 1.07 mMol/L 07/30/2024 3:58 PM EST [facility] Blood VENOUS BLOOD SPECIMEN / Unknown Venipuncture / Unknown 07/30/2024 3:08 PM EST 07/30/2024 3:12 PM EST Jay Silverio MD CHEMISTRY ORDERABL ES Performing Organization Address City/[facility]/ZIP Co de Phone Number [facility] [place] [address] * (ABNORMAL) Basic Metabolic Panel (07/30/2024 3:08 PM EST) [facility] Glucose 105 65 - 199 mg/dL [...] - 5.0 mMol/L 07/30/2024 4:17 PM EST [facility] Chloride 109(H) 98 - 107 mMol/L 07/30/2024 4:[address] [facility] Carbon Dioxide 21(L) 22 - 31 mMol/L 07/30/2024 4:[address] [facility] Anion Gap 11 5 - 15 mMol/L 07/30/2024 4:[address] [facility] Calcium 7.9(L) 8.5 - 10.5 mg/dL 07/30/2024 4:[address] [facility] Est [...] MD CHEMISTRY ORDERABL ES [facility] [place] [address] * ECHO LMTD W CONTRAST W LMTD SPEC DOPP COLOR DOPP (07/30/2024 11:42 AM EST) Anatomical Region Laterality Modality Cardiac Other 07/30/2024 10:2 2 AM EST Narrative 07/30/2024 12:[address] [address] ? Echocardiogram Report Name: KOREY MONTOYA ? Study Date: 07/30/2024 10:22 AMBP: 124/66 mmHg : 1950 ? Height: 168 cm ? Account: [id number] Age: 74 yrs ? Weight: 65 kg [...] Compared to the overnight study by the marketing rotation associate fellow the impella position is stable. 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 Procedure Limited - 69324. Image enhancement Definity was used for both [...] Note Kathleen Banda MD - 07/30/2024 [address] [place] [address] Echocardiogram Report Name: MONTOYAKOREY Study Date: 0:22 AMBP: 124/66 mmHg : 1950 Height: 168 cm Account: [id number] Age: 74 yrs Weight: 65 kg Gender: [...] Compared to the overnight study by the marketing rotation associate fellow the impella positionis stable. The global left ventricular systolic function has improvedpredominantly via recruitment outside the LAD territory which remains akinetic. Procedure Limited - 69128. Image enhancement Definity was used for both [...] GLUCOSE (07/30/2024 11:17 AM EST) [facility] Glucometer, POC 97 65 - 199 mg/dL 07/30/2024 11:[address] [facility] Comment:Supplemental ranges: <140 mg/dL before meals <180 mg/dL all other times of the day. Blood CAPILLARY BLOOD / Unknown 07/30/2024 11:17 AM EST 07/30/2024 11:17 AM EST Jay Silverio MD POINT OF CARE TEST ORDERABLES [facility] [place] [address] * (ABNORMAL) Blood Gas, Arterial POC (07/30/2024 8:16 AM EST) [facility] Signature pH, Arterial 7.44 7.35 - [...] OF CARE TEST ORDERABLES [facility] [place] [address] * (ABNORMAL) Troponin - Single (07/30/2024 8:09 [...] troponin value can be found in the [facility] Test Catalog Troponin - [email or web address].testcatalog.org/catalogs/565/files/38596 Reference: Fourth [place] Definition of Myocardial Infarction. Journal of the [place] [employer] 2018;72:4455-0509 Blood VENOUS BLOOD SPECIMEN / Unknown Venipuncture / Unknown 07/30/2024 8:09 AM EST 07/30/2024 8:26 AM EST Jay Silverio MD CHEMISTRY ORDERABL ES [facility] [place] [address] * POC, GLUCOSE (07/30/2024 7:40 AM EST) Glucometer, POC 111 65 - 199 mg/dL 07/30/2024 7:[address] [facility] Comment:Supplemental ranges: <140 mg/dL before meals <180 mg/dL all other times of the day. Blood CAPILLARY BLOOD / Unknown 07/30/2024 7:40 AM EST 07/30/2024 7:40 AM EST Jay Silverio MD POINT OF CARE TEST ORDERABLES Performing Organization Address City/State/[facility] Co de Phone Number [facility] [place] [address] * (ABNORMAL) CBC (with Diff) (07/30/2024 2:11 [...] 0.04 x10(3)/mc L 07/30/2024 2:33 AM EST [facility] Blood VENOUS BLOOD SPECIMEN / Unknown Venipuncture / Unknown 07/30/2024 2:11 AM EST 07/30/2024 2:22 AM EST Bridgette Stauffer MD HEMATOLOGY ORDERABLE S Performing Organization Address [facility] Co de Phone Number [facility] [place] [address] * Magnesium (07/30/2024 2:11 AM EST) Magnesium 1.01 0.69 - 1.07 mMol/L 07/30/2024 2:[address] [facility] Blood VENOUS BLOOD SPECIMEN / Unknown Venipuncture / Unknown 07/30/2024 2:11 AM EST 07/30/2024 2:22 AM EST Bridgette Stauffer MD CHEMISTRY ORDERABLES Performing Organization Address [facility] Co de Phone Number [facility] [place] [address] * (ABNORMAL) Basic Metabolic Panel (07/30/2024 2:11 AM EST) Glucose 190 65 - 199 mg/dL 07/30/2024 2:[address] [facility] Comment:Glucose Concentratio n >=200 mg/dL plus symptoms is consistent with Diabetes Mellitus. Blood Urea Nitrogen 15 10 - 20 mg/dL 07/30/2024 2:51 AM EST [facility] Creatinine 0.88 0.80 - 1.50 mg/dL 07/30/2024 2:[address] [facility] Sodium 135 135 - 145 mMol/L 07/30/2024 2:[address] [facility] Potassium 4.9 3.5 - 5.0 mMol/L 07/30/2024 2:51 AM EST [facility] Chloride 105 98 - 107 mMol/L 07/30/2024 2:51 AM EST [facility] Carbon Dioxide 19(L) 22 - 31 mMol/L 07/30/2024 2:51 AM EST [facility] Anion Gap 11 5 - [...] Stauffer MD CHEMISTRY ORDERABLES [facility] [place] [address] * (ABNORMAL) Cooximetry, POC (07/30/2024 1:00 AM [...] OF CARE TEST ORDERABLES Performing Organization Address City/State/[facility] Co de Phone Number [facility] [place] [address] * (ABNORMAL) Blood Gas, Arterial POC (07/30/2024 [...] OF CARE TEST ORDERABLES [facility] [place] [address] * (ABNORMAL) Troponin - Single (07/29/2024 10:31 [...] troponin value can be found in the [facility] Test Catalog Troponin - [email or web address].[email or web address]/catalogs/565/files/48893 Reference: Fourth [place] Definition of Myocardial Infarction. Journal of the [place] [employer] 2018;72:1308-8014 Blood VENOUS BLOOD SPECIMEN / Unknown Venipuncture / Unknown 07/29/2024 10:31 PM EST 07/29/2024 10:36 PM EST Yrn Ward MD CHEMISTRY ORDERABL ES Performing Organization Address City/[facility]/ZIP Co de Phone Number [facility] [place] [address] * Potassium (07/29/2024 8:11 PM EST) Potassium 4.1 3.5 - 5.0 mMol/L 07/29/2024 8:52 PM EST [facility] Blood VENOUS BLOOD SPECIMEN / Unknown Venipuncture / Unknown 07/29/2024 8:11 PM EST 07/29/2024 8:16 PM EST Jay Silverio MD CHEMISTRY ORDERABL ES [facility] [place] [address] * (ABNORMAL) Troponin - Single (07/29/2024 8:11 PM EST) Pathologist [facility], [...] troponin value can be found in the [facility] Test Catalog Troponin - [email or web address]/catalogs/565/files/64876 Reference: Fourth [place] Definition of Myocardial Infarction. Journal of the [place] [employer] 2018;72:0730-4071 Blood VENOUS BLOOD SPECIMEN / Unknown Venipuncture / Unknown 07/29/2024 8:11 PM EST 07/29/2024 8:16 PM EST Jay Silveroi MD CHEMISTRY ORDERABL ES [facility] [place] [address] * (ABNORMAL) Phosphorus (07/29/2024 8:11 PM EST) Pathologist [facility] Phosphorus 2.1(L) 2.5 - 4.5 mg/dL 07/29/2024 8:52 PM EST [facility] Blood VENOUS BLOOD SPECIMEN / Unknown Venipuncture / Unknown 07/29/2024 8:11 PM EST 07/29/2024 8:16 PM EST Jay Silverio MD CHEMISTRY ORDERABL ES Performing Organization Address [facility] Co de Phone Number [facility] [place] [address] * POC, GLUCOSE (07/29/2024 8:09 PM EST) Glucometer, POC 142 65 - 199 mg/dL 07/29/2024 8:09 PM EST [facility] Comment:Supplemental ranges: <140 mg/dL before meals <180 mg/dL all other times of the day. Blood CAPILLARY BLOOD / Unknown 07/29/2024 8:09 PM EST 07/29/2024 8:09 PM EST Jay Silverio MD POINT OF CARE TEST ORDERABLES Performing Organization Address [facility] Co de Phone Number [facility] [place] [address] * ABORH RECHECK (07/29/2024 6:43 PM EST) ABORH Recheck AB POSITIVE 07/29/2024 10:13 PM EST [facility] Blood VENOUS BLOOD SPECIMEN / Unknown Venipuncture / Unknown 07/29/2024 6:43 PM EST 07/29/2024 7:15 PM EST Jay Silverio MD BLOOD BANK LAB ORD ERABLES Performing Organization Address City/[facility] Co de Phone Number [facility] [place] [address] * POC, GLUCOSE (07/29/2024 5:57 PM EST) Glucometer, POC 166 65 - 199 mg/dL 07/29/2024 5:57 PM EST [facility] Comment:Supplemental ranges: <140 mg/dL before meals <180 mg/dL all other times of the day. Blood CAPILLARY BLOOD / Unknown 07/29/2024 5:57 PM EST 07/29/2024 5:57 PM EST Jay Silverio MD POINT OF CARE TEST ORDERABLES [facility] [place] [address] * Type and screen ([facility]) (07/29/2024 5:56 PM EST) [facility] ABORH Type AB POSITIVE 07/29/2024 9:44 PM EST [facility] PATIENT HISTORY Not Found 07/29/2024 9:44 PM EST [facility] Expires at [id number] on: 08/01/2024 07/29/2024 9:44 PM EST [facility] ANTIBODY SCREEN AUTOMATED Negative 07/29/2024 9:44 PM EST [facility] T&S only valid at [facility] 07/29/2024 9:44 PM EST [facility] Blood VENOUS BLOOD SPECIMEN / Unknown Venipuncture / Unknown 07/29/2024 5:56 PM EST 07/29/2024 6:07 PM EST Narrative [facility] - 07/29/2024 9:44 PM EST This Type and Screen result is only valid at the [facility] Jay Silverio MD BLOOD BANK LAB ORD ERABLES Performing Organization Address City/[facility]/ZIP Co de Phone Number [facility] [place] [address] * (ABNORMAL) Troponin - Single (07/29/2024 4:52 [...] troponin value can be found in the [facility] Test Catalog Troponin - [email or web address]/catalogs/565/files/86450 Reference: Fourth [place] Definition of Myocardial Infarction. Journal of the [place] [employer] 2018;72:9017-3898 Blood VENOUS BLOOD SPECIMEN / Unknown Venipuncture / Unknown 07/29/2024 4:52 PM EST 07/29/2024 4:57 PM EST Jay Silverio MD CHEMISTRY ORDERABL ES [facility] [place] [address] * EKG 12 Lead (07/29/2024 4:21 PM EST) Ventricular rate 72 BPM MUSE SYSTEM Atrial Rate 72 BPM MUSE SYSTEM P-R Interval 168 ms MUSE SYSTEM QRS Duration 82 ms MUSE SYSTEM Q-T Interval 392 ms MUSE SYSTEM QTC Calculated (Bezet) 429 ms MUSE SYSTEM Calculated P [place] 71 degrees MUSE SYSTEM Calculated R [place] 77 degrees MUSE SYSTEM Calculated T [place] 28 degrees MUSE SYSTEM INTERPRETATION Sinus rhythm with Premature supraventricular complexes and Occasional Premature ventricular complexes Low voltage QRS 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 Blood CAPILLARY BLOOD / Unknown 07/29/2024 4:19 PM EST 07/29/2024 4:19 PM EST Jay Silverio MD POINT OF CARE TEST ORDERABLES [facility] [place] [address] * Blood culture (07/29/2024 4:08 PM EST) Blood Culture No growth at 120 hours 08/03/2024 5:01 PM EST [facility] Blood VENOUS BLOOD SPECIMEN / Unknown Venipuncture / Unknown 07/29/2024 4:08 PM EST 07/29/2024 4:15 PM EST Jay Silverio MD MICROBIOLOGY - BLO OD ORDERABLES Performing Organization Address [facility] Co de Phone Number [facility] [place] [address] * Blood culture (07/29/2024 4:08 PM EST) Blood Culture No growth at 120 hours 08/03/2024 5:01 PM EST [facility] Blood VENOUS BLOOD SPECIMEN / Unknown Venipuncture / Unknown 07/29/2024 4:08 PM EST 07/29/2024 4:26 PM EST Jay Silverio MD MICROBIOLOGY - BLO OD ORDERABLES Performing Organization Address [facility] de Phone Number [facility] [place] [address] * XR Chest One View (07/29/2024 2:30 PM EST) WORKSTATION ID [id number] DH RAD Anatomical Region Laterality Modality Chest [...] ? Electronically signed by: Chris Candelaria MD, [facility] ([phone]), at 07/29/2024 3:21 PM Narrative 07/29/2024 3:21 [...] first. Electronically signed by: Chris Candelaria MD, [facility]([phone]), at 07/29/2024 3:21 PM Vahe Marvin MD IMG DX ORDERABLES * (ABNORMAL) APTT (07/29/2024 2:03 PM EST) Partial Thromboplastin Time >160(HHH) 25 - 37 sec 07/29/2024 2:56 PM EST [facility] Blood VENOUS BLOOD SPECIMEN / Unknown Venipuncture / Unknown 07/29/2024 2:03 PM EST 07/29/2024 2:13 PM EST Vahe Marvin MD HEMATOLOGY ORDERABLE S [facility] [place] [address] * (ABNORMAL) Prothrombin Time (07/29/2024 2:03 PM EST) [facility] Prothrombin Time 14.2(H) 9.4 - 12.5 [...] MD HEMATOLOGY ORDERABLE S [facility] [place] [address] * CRP, acute inflammation (07/29/2024 2:03 PM EST) Pathologist [facility] C-Reactive Protein <3.0 <=4.9 mg/L 07/29/2024 2:52 PM EST [facility] Blood VENOUS BLOOD SPECIMEN / Unknown Venipuncture / Unknown 07/29/2024 2:03 PM EST 07/29/2024 2:14 PM EST Vahe Marvin MD CHEMISTRY ORDERABLES [facility] [place] [address] * Lipid Panel (Reflex Direct LDL) (07/29/2024 [...] mg/dL LDL Cholesterol 64 mg/dL 2:[address] [facility] [...] PM EST 07/29/2024 2:14 PM EST [facility]ORY - 07/29/2024 2:52 [...] Marvin MD CHEMISTRY ORDERABLES [facility] [place] [address] * TSH [place] (07/29/2024 2:03 PM EST) Pathologist [facility] Thyroid Stimulating Hormone 0.70 0.27 - 4.20 mcIU/mL 07/29/2024 2:52 PM EST [facility] Blood VENOUS BLOOD SPECIMEN / Unknown Venipuncture / Unknown 07/29/2024 2:03 PM EST 07/29/2024 2:14 PM EST Vahe Marvin MD CHEMISTRY ORDERABLES Performing Organization Address City/[facility] Co de Phone Number [facility] [place] [address] * Hemoglobin A1c (07/29/2024 2:03 PM EST) [...] blood cell turnover may not be labor service representative of glycemic control. Reference Interval: [...] EST Narrative [facility] - 07/29/2024 2:41 PM EST Estimated average glucose (eAG) is calculated from the equation described in: Quinten ALVES, Rikki J, Reno R, et al. ??Translating the A1C assay into estimated average glucose values. ??Diabetes Care 2008:31(8):7755-6131. Additional resources are available on the ADA website (diabetes.org). Vahe Marvin MD CHEMISTRY ORDERABLES [facility] [place] [address] * (ABNORMAL) CBC (with Diff) (07/29/2024 2:03 [...] - 48.5 % 07/29/2024 2:18 PM EST [facility] Mean Cell Volume 83.4 82.9 [...] MD HEMATOLOGY ORDERABLE S [facility] [place] [address] * Phosphorus (07/29/2024 2:03 PM EST) Phosphorus 2.5 2.5 - 4.5 mg/dL 07/29/2024 2:52 PM EST [facility] Blood VENOUS BLOOD SPECIMEN / Unknown Venipuncture / Unknown 07/29/2024 2:03 PM EST 07/29/2024 2:14 PM EST Vahe Marvin MD CHEMISTRY ORDERABLES Performing Organization Address City/[facility]/ZIP Co de Phone Number [facility] [place] [address] * Magnesium (07/29/2024 2:03 PM EST) Magnesium 0.70 0.69 - 1.07 mMol/L 07/29/2024 2:52 PM EST [facility] Blood VENOUS BLOOD SPECIMEN / Unknown Venipuncture / Unknown 07/29/2024 2:03 PM EST 07/29/2024 2:14 PM EST Vahe Marvin MD CHEMISTRY ORDERABLES [facility] [place] [address] * (ABNORMAL) Comprehensive metabolic panel (07/29/2024 2:03 [...] Marvin MD CHEMISTRY ORDERABLES [facility] [place] [address] * (ABNORMAL) Troponin - Single (07/29/2024 2:03 [...] troponin value can be found in the [facility] Test Catalog Troponin - [email or web address]/files/07331 Reference: Fourth [place] Definition of Myocardial Infarction. Journal of the [place] College of [employer] 2018;72:6905-5519 Blood VENOUS BLOOD SPECIMEN / Unknown Venipuncture / Unknown 07/29/2024 2:03 PM EST 07/29/2024 2:14 PM EST Vahe Marvin MD CHEMISTRY ORDERABLES [facility] [place] [address] * (ABNORMAL) Blood Gas, Venous POC (07/29/2024 2:01 PM EST) pH, Venous 7.30(L) 7.32 - 7.42 07/29/2024 2:[address] [facility] PCO2, Venous 42 38 - [...] - 2.2 mmol/L 07/29/2024 2:02 PM EST [facility] Ionized Calcium, Venous 1.11(L) 1.15 - 1.33 mmol/L 07/29/2024 2:02 PM EST [facility] Blood VENOUS BLOOD SPECIMEN / Unknown 07/29/2024 2:01 PM EST 07/29/2024 2:02 PM EST Vahe Marvin MD POINT OF CARE TEST O RDERABLES Performing Organization Address City/State/[facility] Co de Phone Number [facility] [place] [address] * CARDIAC CATHETERIZATION (07/29/2024 1:20 PM EST) Anatomical Region Laterality Modality Other Narrative 07/29/2024 2:02 PM EST ?[facility] ? Cardiac Catheterization/Intervention Report ? Patient Name: Korey Montoya Kyrie. ? Procedure Date: 07/29/2024 ? A #: [id number] ? Primary Physician: Vahe Marvin ? Case #: [id number] ? File Name: [id number] ? Catheterization Order Number: [id number] ? [facility] ? Final Report [place], [place] ? Patient Name: ? Korey P. Jan ?ID#: ?[id number] ? : ?1950 ? Procedure Date: ? July 29, 2024 ?Case #: ? [id number] ? Room: ? 5 ? Case Physician: [...] procedure was Emergent. The indication for ?the builder's labourer visit is ACS less than or [...] 3.5 guiding catheter and a 3.5 Fr [place] [address] ??20 Mhz using ?Manual pullback. ??Imaging [...] A premounted 3.00 x 22 mm [place] Dickey (LOW) was deployed ? with a maximum [...] atmospheres. ??A premounted 3.00 x 08 mm [place] Dickey (LOW) ? was deployed with a maximum [...] dose administered prior to arrival in the builder's labourer. ?Recommended anti-platelet/anti-thrombotic regimen: ?Start aspirin 81 [...] able ?to start weaning his inotropes/vasopressors. A [place] Colette catheter was ?placed demonstrating improvement in [...] ventricular assist device insertion, right heart ?catheterization, [place] (flow directed cath) insertion, access site ?angiography, vascular ultrasound, venous line / sheath insert and vascular ?closure device. ? Vahe Marvin M.D. ? Electronically Signed by: Vahe Marvin M.D. ? Report Finalized: 07/29/2024 ??13:55 ? Report Last Ammended: 09/20/2024 ??15:21 ? Procedure Note Vahe Marvin MD - 09/20/2024 [facility] Cardiac Catheterization/Intervention Report Patient Name: Korey Montoya Procedure Date: 07/29/2024 A #: [id number] Primary Physician: Vahe Marvin Case #: [id number] File Name: [id number] Catheterization Order Number: [id number] [facility] FinalReport [place], [place] Patient Name: Korey Montoya ID#:[id number] :1950 Procedure Date: July 29, 2024 Case [...] diagnostic procedure was Emergent. Theindication for the builder's labourer visit is ACS less than or [...] 3.5 guiding catheter and a 3.5 Fr [place] [address] 20 Mhzusing Manual pullback. Imaging was [...] The priority for the procedure was Emergent.The [facility] indication for the procedure was STEMI-Immediate [...] The lesion was predilated with a 2.00mm [id number] MM balloon with a maximum inflation pressure of 12atmospheres. A premounted 3.00 x 22 mm [place] Dickey (LOW) wasdeployed with a maximum inflation pressure [...] atmospheres. A premounted 3.00 x 08 mm [place] Dickey(LOW) was deployed with a maximum inflation pressure [...] dose administered prior to arrival in the builder's labourer. Recommended anti-platelet/anti-thrombotic regimen: Start aspirin 81 [...] wereable to start weaning his inotropes/vasopressors. A [place] Colette catheterwas placed demonstrating improvement in his [...] ventricular assist device insertion, right heart catheterization, [place] (flow directed cath) insertion, access site angiography, [...] CARE TEST O RDERABLES [facility] [place] [address] * (ABNORMAL) BLOOD GAS, POC (07/29/2024 12:12 [...] MD POINT OF CARE TEST O RDERABLES [facility] [place] [address] documented in this encounter Visit Diagnoses Not [...] Routine documented in this encounter Care Teams Precinct I Police Sergeant Relationship Specialty Start Date End Date Alexia Mtz, FREDRICK [address] [place] [address] PCP - General Family Medicine 07/30/24 documented as of this encounter
--- OUTSIDE RECORDS SUMMARY | 2024-10-19 10:01 | XMS_ITS | Encounter Summary ---
Author Organization [facility] Address [facility] [place] [address] Care Team Providers Care Career Center Advisor Name Role Phone Yoel Artis FREDRICK Primary Care Provider [phone] Reason for Visit * Auth/Cert (Routine) Specialty Diagnoses / Procedures Referred By Theodore t Referred To Contact Diagnoses AIRO Procedures [facility] [employer] MILEAGE [facility] [employer] AIRO [facility] Referral ID Status Reason Start Date Expiration Date Visits Re quested Visits Authorized [id number] 1 1 Encounter Details Date Type Department Care Team (Latest Contact Info) Description 07/29/2024 6:32 PM EST - 07/29/2024 11:59 PM [facility] Hospital Encounter [facility] at [address] [phone] Arvin Becerra MD [facility] [place] [address] Discharge Disposition: Home Social History Tobacco Use Types Packs/Day Years Used Date Smoking Tobacco: Former Cigarettes Smokeless Tobacco: Never Alcohol Use Standard Drinks/Week Comments Not Currently 0 (1 standard drink = 0.6 oz pur e alcohol) [facility] Utilities Answer Date Recorded In [...] evening. 04/17/2023 08/04/2024 nitroGLYcerin (NITROLINGUAL) 400 mcg/spray [place], Non-AerosolIndications: Proctalgia fugax,Fecal smearing,Constipation, unspecified constipation type 1 spray to anus for proctalgia fugax as needed, not to exceed once daily 12 g 06/01/2023 08/04/2024 documented as of this encounter Plan of Treatment Upcoming Encounters Date Type Department Care Team (Late st Contact Info) Description 10/31/2024 9:30 AM EST Appointment Non-Invasive [place] [address] Mushtaq Murphy APRN 10/31/2024 11:00 AM EST Office Visit Cardiology at [address] [phone] Mushtaq Murphy APRN documented as of this encounter Visit Diagnoses Not on filedocumented in this encounter Care Teams Career Center Advisor Relationship Specialty Start Date End Date Yoel Artis APRN [address] [place] [address] PCP - General Internal Medicine 11/18/22 07/29/24 documented as of this encounter
--- OUTSIDE RECORDS SUMMARY | 2024-10-19 10:02 | XMS_ITS | Encounter Summary ---
[place] [address] Care Team Providers Care Lead Solutions Architect Name Role Phone Alexia Mtz DIAMOND DRILLER Primary Care Provider [phone] Encounter Details Date Type Department Care Team (Late st Contact Info) Description 04/23/2024 Lab [place] [phone] Alexia Mtz, DIAMOND DRILLER [address] [place] [phone] Elevated prostate specific antigen (PSA) Social History [...] 9:30 AM EST Appointment Non-[place] [phone] Mushtaq Murphy, DIAMOND DRILLER 10/31/2024 11:00 AM EST Office Visit Cardiology at [address] [phone] Mushtaq Murphy, FREDRICK documented as of this encounter Procedures Procedure Name Priority Date/Time Associated Diagnosis Comments PSA (ULTRASENSITIVE), TOTAL AND FREE Routine 04/23/2024 1:09 PM EDT Elevated prostate specific antigen (PSA) documented in this encounter Results * (ABNORMAL) PSA (Ultrasensitive), total and free (04/23/2024 1:09 PM EDT) Prostate Specific Antigen (Ultrasensitive) 5.24(H) 0.00-4.00 ng/mL ng/ml 04/23/2024 5:[address] [facility] Comment:The reference interv al (0 - 4 ng/mL) is applicable to individuals with an intact prostate. Values within this reference interval may indicate recurrence in those who have undergone radical prostatectomy. This result was generated using a Dispop Osiel immunoassay. Results obtained from other methods or manufacturers cannot be used interchangeably with this method. Prostate Specific Antigen, Free 1.1 ng/ml 04/23/2024 5:[address] [facility] Comment:This result was gene rated using a Dispop Osiel immunoassay. Results obtained from other methods or manufacturers cannot be used interchangeably with this method. PSA % Free 21 % 04/23/2024 5:[address] [facility] Comment: Probability of finding DEAN OF FACULTY on needle biopsy by age in years: [...] EDT 04/23/2024 4:50 PM EDT Alexia Mtz DIAMOND DRILLER CHEMISTRY ORDERABLES Performing Organization Address City/State/[facility] Co de Phone Number [facility] [place] [address] documented in this encounter Visit Diagnoses Diagnosis Elevated prostate specific antigen (PSA) documented in this encounter Care Teams Lead Solutions Architect Relationship Specialty Start Date End Date Alexia Mtz, FREDRICK [address] [place] [address] PCP - General Family Medicine 07/30/24 documented as of this encounter
--- OUTSIDE RECORDS SUMMARY | 2024-10-19 10:02 | XMS_ITS | Encounter Summary ---
[place] [address] Care Team Providers Care Industrial Technician Name Role Phone Yoel Artis APRN Primary Care Provider [phone] Reason for Referral * Consultation (Routine) - Closed Specialty Diagnoses / Procedures Referred By Theodore muro Referred To Contact Gastroenterology Diagnoses Anal spasm motility- anal spasms Yoel Artis APRN [address] [place] [address] [facility] [address] [place] [address] Referral ID Status Reason Start Date Expiration Date V isits Requested Visits Authorized [id number] Closed Consult, Test & Treat PCP Updated and/or Approved 11/18/2022 11/18/2023 6 6 Encounter Details Date Type Department Care Team (Late st Contact Info) Description 11/18/2022 Transcribe Orders eDH Incoming Referrals [phone] Yoel Artis APRN [address] [place] [address] Anal spasm Social History Tobacco [...] 9:30 AM EST Appointment Non[place] [address] Mushtaq Murphy, FREDRICK 10/31/2024 11:00 AM EST Office Visit Cardiology at [address] [phone] Mushtaq Murphy, COTTON FARMER Scheduled Referrals Name Type Priority Associated Diagnoses Order Schedule Referral to Gastroenterology Outpatient Referral Routine Anal spasm Ordered: 11/18/2022 documented as of this encounter Visit Diagnoses Diagnosis Anal spasm documented in this encounter Care Teams Industrial Technician Relationship Specialty Start Date End Date Yoel Artis APRN [address] [place] [address] PCP - General Internal Medicine 11/18/22 07/29/24 documented as of this encounter
--- OUTSIDE RECORDS SUMMARY | 2024-10-19 10:02 | XMS_ITS | Encounter Summary ---
[place] [address] Care Team Providers Care Obstetrics Specialist Name Role Phone Yoel Artis FREDRICK Primary Care Provider [phone] Reason for Visit * Auth/Cert (Routine) Specialty Diagnoses / Procedures Referred By Theodore t Referred To Contact Diagnoses Anal spasm Fecal smearing Constipation, unspecified Rectal pain, fecal smearing Procedures PRO COLONOSCOPY, DIAGNOSTIC PRO COLONOSCOPY, BIOPSY PRO COLONOSCOPY, REMV LESN, SNARE COLONOSCOPY, DIAGNOSTIC (WRVU 3.26) Brandan Mcgovern MD [facility] [address] [facility] Referral ID Status Reason Start Date Expiration Date Visits Re quested Visits Authorized [id number] 1 1 Encounter Details Date Type Department Care Team (Late st Contact Info) Description 08/30/2023 11:00 AM EST - 08/30/2023 12:00 PM EST Surgery [place] [address] Brandan Mcgovern MD [facility] [place] [address] COLONOSCOPY, POLYPECTOMY, REMOVAL LESION BY SNARE (WRVU [...] occurs, please contact your Doctor. Please call [phone] before 8pm Mon-Fri with problems, questions or concerns. If you call after 8pm or on weekends, call the Hospital at [phone] and ask to speak to the Butter Melter infusion nurse and the lithograph operator will contact that person for you. When should you call for help? Call 650 anytime you think you may need emergency [...] problems. Where can you learn more? [facility] View your After Visit Summary and more online at [email or web address] If you would like to provide feedback about your hospital experience, please call the Office of Patient and Family Relations at . If you have received this After Visit Summary in error, please immediately return it in person to the department, or notify the [facility] Privacy Office by calling toll free at between the hours of 8AM and 5PM to arrange for our retrieval of the documents at no cost to you. Content Version: 12.2 ?? [phone] [employer]. Care instructions adapted under license by [facility]. If you have questions about a medical condition or this instruction, always ask your healthcare professional. [employer] disclaims any warranty or liability for your [...] evening. 04/17/2023 08/04/2024 nitroGLYcerin (NITROLINGUAL) 400 mcg/spray [place], Non-AerosolIndications:P roctalgia fugax,Fecal smearing,Constipation, unspecified constipation type [...] 9:30 AM EST Appointment Non[place] [phone] Mushtaq Murphy APRN 10/31/2024 11:00 AM EST Office Visit Cardiology at [address] [phone] Mushtaq Murphy APRN documented as of this encounter Procedures Procedure Name Priority Date/Time Associated Diagnosis Comments SPECIMEN TO PATHOLOGY Routine 08/30/2023 11:23 AM EST SURGICAL PATHOLOGY REPORT Routine 08/30/2023 11:21 AM EST COLONOSCOPY Routine 08/30/2023 10:57 AM EST Colonoscopy, Antonieta Valadez ([id number]) 08/30/2023 10:44 AM EST Proctalgia fugax Fecal smearing Constipation, unspecified constipation type documented in this encounter Results * Specimen to Pathology (08/30/2023 11:23 AM EST) AP Specimen 08/30/2023 11:2 3 AM EST 08/30/2023 11:23 AM EST Narrative [facility] - 08/30/2023 11:23 AM EST Specimen requisition ordered. ??Separate Pathology report to follow Brandan Mcgovern MD PATHOLOGY/CYTOLOGY O RDERASHAY [facility] [place] [place] [address] * Surgical Pathology Report (08/30/2023 11:21 AM EST) Final Diagnosis [id number] ? Location: 4T; EA12; A The signing pathologist has (i) examined the relevant preparation(s) for the specimen(s) and (ii) rendered or confirmed the diagnosis(es). . ?Surgical Pathology DIAGNOSIS A - Sigmoid colon polyp, resection (Multiple): - ??Tubular adenoma. CR-PX Electronically signed by: ?Blake ORTEGA PhD, Yulia Verified: ??09/08/2023 14:48 ??Pathologist Performed at: ??-[facility] Dept. of Pathology, [place] [address] Underwriting Technician: Fercho Chan MD, AP, ??CLIA Certificate: [id number] SPECIMEN(S) SUBMITTED A - Sigmoid colon polyp, [...] EST Brandan Mcgovern MD PATHOLOGY/CYTOLOGY Veronica MORENO [facility] [place] [address] [facility] [place] [address] * COLONOSCOPY (08/30/2023 10:57 AM EST) COLONOSCOPY [facility] Endoscopy Procedure Date: 08/30/2023 10:57 AM ? Patient Name: Korey Montoya ? Date of : 1950 ? Age: 73 ? Order #: [id number] ? Instrument Name: [id number] ? Procedure: ? Colonoscopy Indications: ? Rectal [...] preparation was evaluated ? using the BBPS (Carrie Bowel ? Preparation Scale) with scores of: [...] (Intra-Procedure), Routine 1046 (Given - Provid er: iTka Fowler RN)1049 (Given - Provider: Tika Fowler [...] RN) documented in this encounter Care Teams Obstetrics Specialist Relationship Specialty Start Date End Date Yoel Artis APRN [address] [place] [address] PCP - General Internal Medicine 11/18/22 07/29/24 documented as of this encounter
--- OUTSIDE RECORDS SUMMARY | 2024-10-19 10:02 | XMS_ITS | Encounter Summary ---
[place] [address] Care Team Providers Care Bar Host/Hostess Name Role Phone Yoel Artis APRN Primary Care Provider Encounter Details Date Type Department Care Team (Late st Contact Info) Description 12/23/2022 8:20 AM EDT - 12/23/2022 11:59 PM EDT Hospital Encounter [facility] [address] [place] [address] Yoel Artis, FUR POINTER [address] [place] [address] Discharge Disposition: Home Social History Tobacco Use [...] 9:30 AM EST Appointment Non-[place] [address] Mushtaq Murphy, FREDRICK 10/31/2024 11:00 AM EST Office Visit Cardiology at [address] [phone] Mushtaq Murphy APRN documented as of this encounter Procedures Procedure Name Priority Date/Time Associated Diagnosis Comments PSA SCREEN Routine 12/23/2022 8:43 AM EDT documented in this encounter Results * (ABNORMAL) PSA Screen (12/23/2022 8:43 AM EDT) PSA Screen 4.37(H) 0.00 - 4.00 ng/mL [facility] [...] APRN CHEMISTRY ORDERABLES Performing Organization Address City/State/[facility] Co de Phone Number [facility] [place] [address] documented in this encounter Visit Diagnoses Not on filedocumented in this encounter Care Teams Bar Host/Hostess Relationship Specialty Start Date End Date Yoel Artis APRN [address] [place] [address] PCP - General Internal Medicine 11/18/22 07/29/24 documented as of this encounter
--- OUTSIDE RECORDS SUMMARY | 2024-10-19 10:02 | XMS_ITS | Encounter Summary ---
[place] [address] Care Team Providers Care Relocation Associate Name Role Phone Unknown Primary Care Provider Unavailabl e Encounter Details Date Type Department Care Team (Late st Contact Info) Description 12/03/2018 Interpretation Only [address] [phone] Ac Albrecht PA [address] [place] [address] [place] [address] Social History Tobacco Use Types Packs/Day Years [...] 9:30 AM EST Appointment Non[place] [address] Mushtaq Murphy APRN 10/31/2024 11:00 AM EST Office Visit Cardiology at [address] [phone] Mushtaq Murphy APRN documented as [...] on filedocumented in this encounter Care Teams Relocation Associate Relationship Specialty Start Date End Date Unknown None PCP - General 08/04/10 01/16/19 documented as of this encounter
--- OUTSIDE RECORDS SUMMARY | 2024-10-19 10:02 | XMS_ITS | Encounter Summary ---
[place] [address] Care Team Providers Care Research Anthropologist Name Role Phone Alexia Mtz FREDRICK Primary Care Provider [phone] Encounter Details Date Type Department Care Team (Late st Contact Info) Description 07/29/2024 External [place] [id number] Social History Tobacco Use Types Packs/Day Years Used Date Smoking Tobacco: Former Cigarettes Smokeless Tobacco: Never Alcohol Use Standard Drinks/Week Comments Not Currently 0 (1 standard drink = 0.6 oz pur e alcohol) [facility] Utilities Answer Date Recorded In the [...] 9:30 AM EST Appointment [place] [address] Mushtaq Murphy, FREDRICK 10/31/2024 11:00 AM EST Office Visit Cardiology at [address] [address] Mushtaq Murphy, FREDRICK documented as of this encounter Procedures Procedure Name Priority Date/Time Associated Diagnosis Comments MISC EXTERNAL CARDIOLOGY RESULT Routine 07/29/2024 10:13 AM EST documented in this encounter Results * External Cardiology Result (07/29/2024 10:13 AM EST) Anatomical Region Laterality Modality Other Historical Provider EXTERNAL CARDIOLO GY RESULT documented in this encounter Visit Diagnoses Not on filedocumented in this encounter Care Teams Research Anthropologist Relationship Specialty Start Date End Date Alexia Mtz APRN [address] [place] [address] PCP - General Family Medicine 07/30/24 documented as of this encounter
--- OUTSIDE RECORDS SUMMARY | 2024-10-19 10:02 | XMS_ITS | Encounter Summary ---
[place] [address] Care Team Providers Care Roll Edge Machine Operator Name Role Phone Yoel Artis FREDRICK Primary Care Provider [phone] Encounter Details Date Type Department Care Team (Late st Contact Info) Description 01/16/[address] [facility] [address] [place] [address] Chaparro Montana MD [address] [place] [address] Social History Tobacco Use Types Packs/Day Years [...] 9:30 AM EST Appointment Non-[place] [address] Mushtaq Murphy APRN 10/31/2024 11:00 AM EST Office Visit Cardiology at [address] [address] Mushtaq Murphy, LEAD ELECTRICAL ENGINEER documented as of this encounter Procedures Procedure Name Priority Date/Time Associated Diagnosis Comments CT HEAD WO CONTRAST (GENERIC) STAT 01/16/2024 4:17 PM EDT documented in this encounter Results * CT Head wo Contrast (Generic) (01/16/2024 4:17 PM EDT) PT CLASS E RAD ADMITDTTM [id number] RAD PT RAD MD INFO [id number]^Haniss henry^Chaparro RAD EXAM DESC CTHEAD^CT Head w/o [...] please contact the health home care manager that requested your imaging first. ? Electronically signed by: Alejandro Tenorio MD, [facility] ([phone]), at 01/16/2024 4:25 PM Narrative 01/16/2024 4:25 [...] questions please contactthe health home care manager that requested your imaging first. Electronically signed by: Alejandro Tenorio MD, [facility]([phone]), at 01/16/2024 4:25 PM Chapraro Montana MD IMG CT ORDERABLES documented in this encounter Visit Diagnoses Not on filedocumented in this encounter Care Teams Roll Edge Machine Operator Relationship Specialty Start Date End Date Yoel Artis APRN [address] [place] [address] PCP - General Internal Medicine 11/18/22 07/29/24 documented as of this encounter
--- OUTSIDE RECORDS SUMMARY | 2024-10-19 10:02 | XMS_ITS | Encounter Summary ---
[place] [address] Care Team Providers Care Latex Thread Machine Operator Name Role Phone Anibal Mtz MD Primary Care Provider [phone] Encounter Details Date Type Department Care Team (Late st Contact Info) Description 11/08/2022 [facility] Only [address] [address] Eve Frost MD [address] [place] [phone] Social History Tobacco Use Types Packs/Day Years [...] 9:30 AM EST Appointment Non-[place] [address] Mushtaq Murphy APRN 10/31/2024 11:00 AM EST Office Visit Cardiology at [address] [address] Mushtaq Murphy, E COMMERCE MERCHANT documented as of this encounter Procedures Procedure Name Priority Date/Time Associated Diagnosis Comments XR CHEST PA AND LATERAL STAT 11/08/2022 10:34 AM EST documented in this encounter Results * XR Chest PA & Lateral (Generic) (11/08/2022 10:34 AM EST) PT CLASS E DH RAD ADMITDTTM RAD PT RAD INFO [id number]^C HANDER^SUNEE R RAD EXAM DESC XCXR2^XR CHEST [...] questions please contact the health child care giver that requested your imaging first. ? Electronically signed by: Alejandro Tenorio MD, [facility] ([phone]), at 11/08/2022 10:37 AM Narrative 11/08/2022 10:37 [...] have questions please contactthe health child care giver that requested your imaging first. Electronically signed by: Alejandro Tenorio MD, [facility]([phone]), at 11/08/2022 10:37 AM Eve Frost MD IMG DX ORDERABLES documented in this encounter Visit Diagnoses Not on filedocumented in this encounter Care Teams Latex Thread Machine Operator Relationship Specialty Start Date End Date Anibal Mtz MD [address] [place] [address] PCP - General Family Medicine 01/17/19 11/17/22 documented as of this encounter
--- OUTSIDE RECORDS SUMMARY | 2024-10-19 10:02 | XMS_ITS | Encounter Summary ---
[place] [address] Care Team Providers Care Pit Crane Operator Name Role Phone Yoel Artis APRN Primary Care Provider [phone] Reason for Referral * Consultation (Routine) - Closed Specialty Diagnoses / Procedures Referred By Theodore muro Referred To Contact Gastroenterology Diagnoses Anal spasm anal spasm Yoel Artis APRN [address] [place] [address] [facility] [place] [address] Referral ID Status Reason Start Date Expiration Date V isits Requested Visits Authorized [id number] Closed Consult, Test & Treat PCP Updated and/or Approved 05/26/2023 05/25/2024 6 6 Encounter Details Date Type Department Care Team (Late st Contact Info) Description 05/26/2023 Transcribe Orders eDH Incoming Referrals [phone] Yoel Artis APRN [address] [place] [address] Anal spasm Social History Tobacco [...] 9:30 AM EST Appointment Non[place] [address] Mushtaq Murphy APRN 10/31/2024 11:00 AM EST Office Visit Cardiology at [address] [address] Mushtaq Murphy, DELINEATOR Scheduled Referrals Name Type Priority Associated Diagnoses Order Schedule Referral to Gastroenterology Outpatient Referral Routine Anal spasm Ordered: 05/26/2023 documented as of this encounter Visit Diagnoses Diagnosis Anal spasm documented in this encounter Care Teams Pit Crane Operator Relationship Specialty Start Date End Date Yoel Artis APRN [address] [place] [address] PCP - General Internal Medicine 11/18/22 07/29/24 documented as of this encounter
--- OUTSIDE RECORDS SUMMARY | 2024-10-19 10:02 | XMS_ITS | Encounter Summary ---
[place] [address] Care Team Providers Care Non Destructive Testing Specialist Name Role Phone Alexia Mtz MICROFICHE DUPLICATOR Primary Care Provider [phone] Encounter Details Date Type Department Care Team (Late st Contact Info) Description 06/25/2024 Lab [place] [address] Aubrey Cali MD [address] [place] [address] Pyuria Social History Tobacco Use Types Packs/Day [...] 9:30 AM EST Appointment Non-Invasive [place] [address] Mushtaq Murphy APRN 10/31/2024 11:00 AM EST Office Visit Cardiology at [address] [address] Mushtaq Murphy APRN documented as [...] - GENER AL ORDERABLES [facility] [place] [address] documented in this encounter Visit Diagnoses Diagnosis Pyuria Other nonspecific finding on examination of urine documented in this encounter Care Teams Non Destructive Testing Specialist Relationship Specialty Start Date End Date Alexia Mtz APRN [address] [place] [address] PCP - General Family Medicine 07/30/24 documented as of this encounter
--- OUTSIDE RECORDS SUMMARY | 2024-10-19 10:02 | XMS_ITS | Encounter Summary ---
Author Organization [facility] Address [facility] [place] [address] Care Team Providers Care Human Resources Trainee Name Role Phone Yoel Artis Ute ALCALA Primary Care Provider [phone] Encounter Details Date Type Department Care Team (Late st Contact Info) Description 07/29/2024 [place] [address] Susannah Watts PA [facility] [place] [address] Social History Tobacco Use Types Packs/Day Years Used Date Smoking Tobacco: Former Cigarettes Smokeless Tobacco: Never Alcohol Use Standard Drinks/Week Comments Not Currently 0 (1 standard drink = 0.6 oz pur e alcohol) [facility] Utilities Answer Date Recorded In the past 12 months has [employer], [employer], oil, or water [employer] threatened to shut off services in your [...] any time in the past 12 m [facility], were you homeless or living in [...] 9:30 AM EST Appointment [place] [address] Mushtaq Murphy, SOLID DIE CUTTER 10/31/2024 11:00 AM EST Office Visit Cardiology at [address] [address] Mushtaq Murphy, SOLID DIE CUTTER documented as of this encounter Procedures Procedure Name Priority Date/Time Associated Diagnosis Comments ECHOCARDIOGRAM TRANSTHORACIC Routine 07/30/2024 1:41 AM EST documented in this encounter Results * Echocardiogram Transthoracic (07/30/2024 1:41 AM EST) Anatomical Region Laterality Modality Cardiac Other 07/30/2024 1:41 AM EST Narrative 07/30/2024 8:23 AM EST [address] [place] [address] ? Echocardiogram Report Name: BERMUDEZ KOREY Kyrie ? Study Date: 07/30/2024 01:41 AM : 1950 ? Height: 168 cm Age: 74 yrs ? Weight: 5.9 kg Gender: Male ?BSA: 0.63 m2 Performed By: Beatris Ching MD Reason For Study: STEMI, [place] History: ASCVD, HTN, HLD Interpreting Fellow: Beatris Ching. Interpretation Summary This is a limited study performed by a fellow secondary special education teacher to evaluate for cardiogenic shock with [...] study available for comparison. Procedure Limited - 95132. Suboptimal quality. There is sinus bradycardia. Left [...] Note Kathleen Banda MD - 07/30/2024 [address] [place] [address] Echocardiogram Report Name: KOREY BERMUDEZ Study Date: 07/30/2024 01:41AM : 1950 Height: 168 cm Age: 74 yrs Weight: 5.9 kg Gender: Male BSA: 0.63 m2 Performed By: Beatris Ching MD Reason For Study: STEMI, [place] History: ASCVD, HTN, HLD Interpreting Fellow: Beatris Ching. Interpretation Summary This is a limited study performed by a fellow secondary special education teacher to evaluate forcardiogenic shock with impella in. [...] study available for comparison. Procedure Limited - 74239. Suboptimal quality. There is sinus bradycardia. Left [...] in this encounter Care Teams Human Resources Trainee Relationship Specialty Start Date End Date Yoel Artis APRN [address] [place] [address] PCP - General Internal Medicine 11/18/22 07/29/24 documented as of this encounter
--- OUTSIDE RECORDS SUMMARY | 2024-10-19 10:02 | XMS_ITS | Encounter Summary ---
Author Organization [facility] [place] [address] Care Team Providers Care Health And Safety Inspector Name Role Phone Yoel Artis Ute ALCALA Primary Care Provider [phone] Reason for Visit * Auth/Cert (Routine) Specialty Diagnoses / Procedures Referred By Theodore t Referred To Contact Diagnoses Anal spasm Fecal smearing Constipation, unspecified Rectal pain, fecal smearing Procedures PRO COLONOSCOPY, DIAGNOSTIC PRO COLONOSCOPY, BIOPSY PRO COLONOSCOPY, REMV LESN, SNARE COLONOSCOPY, DIAGNOSTIC (WRVU 3.26) Brandan Mcgovern MD [facility] [place] [address] [facility] Referral ID Status Reason Start Date Expiration Date Visits Re quested Visits Authorized [id number] 1 1 Encounter Details Date Type Department Care Team (Latest Contact Info) Description 08/30/2023 10:09 AM EST - 08/30/2023 12:19 PM [facility] Hospital En[place] [address] Brandan Mcgovern MD [facility] [address] Discharge Disposition: Home Social History Tobacco Use [...] occurs, please contact your Doctor. Please call [phone] before 8pm Mon-Fri with problems, questions or concerns. If you call after 8pm or on weekends, call the Hospital at [phone] and ask to speak to the Depositing Machine Operator personal lines account manager and the dye tub operator will contact that person for you. [...] problems. Where can you learn more? [facility] View your After Visit Summary and more online at [email or web address] If you would like to provide feedback about your hospital experience, please call the Office of Patient and Family Relations at . If you have received this After Visit Summary in error, please immediately return it in person to the department, or notify the [facility] Privacy Office by calling toll free at between the hours of 8AM and 5PM to arrange for our retrieval of the documents at no cost to you. Content Version: 12.2 ?? [id number] [employer]. Care instructions adapted under license by [facility]. If you have questions about a medical condition or this instruction, always ask your healthcare professional. [employer] disclaims any warranty or liability for [...] evening. 04/17/2023 08/04/2024 nitroGLYcerin (NITROLINGUAL) 400 mcg/spray [place], Non-AerosolIndications:P roctalgia fugax,Fecal smearing,Constipation, unspecified constipation type 1 spray to anus for proctalgia fugax as needed, not to exceed once daily 12 g 06/01/2023 08/04/2024 documented as of this encounter H&P Notes * Brandan Mcgovern MD - 08/30/2023 10:44 AM EST Patient Name: Korey Montoya Patient Age: 73 y.o. Birthdate: 1950 Admit date: 08/30/2023 Attending Physician: Brandan Mcgoevrn MD Gastroenterology and Hepatology Pre-Procedure History and [...] 9:30 AM EST Appointment Non[place] [address] Mushtaq Murphy APRN 10/31/2024 11:00 AM EST Office Visit Cardiology at [address] [address] Mushtaq Murphy APRN documented as of this encounter Procedures Procedure Name Priority Date/Time Associated Diagnosis Comments SPECIMEN TO PATHOLOGY Routine 08/30/2023 11:23 AM EST SURGICAL PATHOLOGY REPORT Routine 08/30/2023 11:21 AM EST COLONOSCOPY Routine 08/30/2023 10:57 AM EST Colonoscopy, Antonieta Valadez ([id number]) 08/30/2023 10:44 AM EST Proctalgia fugax Fecal smearing Constipation, unspecified constipation type documented in this encounter Results * Specimen to Pathology (08/30/2023 11:23 AM EST) AP Specimen 08/30/2023 11:2 3 AM EST 08/30/2023 11:23 AM EST Narrative [facility] - 08/30/2023 11:23 AM EST Specimen requisition ordered. ??Separate Pathology report to follow Brandan Mcgovern MD PATHOLOGY/CYTOLOGY O RDERASHAY [facility] [place] [address] * Surgical Pathology Report (08/30/2023 11:21 AM EST) Final Diagnosis [id number] ? Location: 4T; EA12; A The signing pathologist has (i) examined the relevant preparation(s) for the specimen(s) and (ii) rendered or confirmed the diagnosis(es). . ?Surgical Pathology DIAGNOSIS A - Sigmoid colon polyp, resection (Multiple): - ??Tubular adenoma. CR-PX Electronically signed by: ?Blake ORTEGA PhD, Yulia Verified: ??09/08/2023 14:48 ??Pathologist Performed at: ??-[facility] Dept. of Pathology, [place] [address] Tool Pusher: Fercho Chan MD, FCAP, ??CLIA Certificate: [id number] SPECIMEN(S) SUBMITTED A - Sigmoid colon polyp, [...] EST Brandan Mcgovern MD PATHOLOGY/CYTOLOGY Veronica RDCLAIREBLES [facility] [place] [address] [facility] [place] [address] * COLONOSCOPY (08/30/2023 10:57 AM EST) COLONOSCOPY [facility] Endoscopy Procedure Date: 08/30/2023 10:57 AM ? Patient Name: Korey Montoya ? N: [id number] ? Date of : 1950 ? Age: 73 ? Order #: [id number] ? Instrument Name: [id number] ? Procedure: ? Colonoscopy Indications: ? Rectal [...] preparation was evaluated ? using the BBPS ([place] Bowel ? Preparation Scale) with scores of: [...] RN) documented in this encounter Care Teams Health And Safety Inspector Relationship Specialty Start Date End Date Yoel Artis APRN [address] [place] [address] PCP - General Internal Medicine 11/18/22 07/29/24 documented as of this encounter
--- OUTSIDE RECORDS SUMMARY | 2024-10-19 10:02 | XMS_ITS | Encounter Summary ---
[place] [address] Care Team Providers Care Rehab Specialist Name Role Phone Yoel Artis APRN Primary Care Provider [phone] Reason for Referral * Consultation (Routine) - Closed Specialty Diagnoses / Procedures Referred By Theodore muro Referred To Contact Urology Diagnoses Raised prostate specific antigen PERSISTENTLY MILDLY ELEVATED PSA, URINARY FREQ Yoel Artis APRN [address] [place] [address] [facility] [place] [address] Referral ID Status Reason Start Date Expiration Date V isits Requested Visits Authorized [id number] Closed Consult, Test & Treat PCP Updated and/or Approved 07/30/2023 07/29/2024 6 6 Encounter Details Date Type Department Care Team (Late st Contact Info) Description 07/30/2023 Transcribe Orders eDH Incoming Referrals [phone] Yoel Artis APRN [address] [place] [address] Raised prostate specific antigen Social History Tobacco [...] 9:30 AM EST Appointment Non-Invasive [place] [address] Mushtaq Murphy APRN 10/31/2024 11:00 AM EST Office Visit Cardiology at [address] [address] Mushtaq Murphy, FREDRICK Scheduled Referrals Name Type Priority Associated Diagnoses Orde r Schedule Referral to Urology Outpatient Referral Routine Raised prostate specific antigen Ordered: 07/30/2023 documented as of this encounter Visit Diagnoses Diagnosis Raised prostate specific antigen Elevated prostate specific antigen (PSA) documented in this encounter Care Teams Rehab Specialist Relationship Specialty Start Date End Date Yoel Artis APRN [address] [place] [address] PCP - General Internal Medicine 11/18/22 07/29/24 documented as of this encounter
--- OUTSIDE RECORDS SUMMARY | 2024-10-19 10:02 | XMS_ITS | Encounter Summary ---
[place] [address] Care Team Providers Care Bicycle Racer Name Role Phone Yoel Artis FREDRICK Primary Care Provider [phone] Encounter Details Date Type Department Care Team (Late st Contact Info) Description 07/28/2024 Interpretation Only [address] [phone] Quinten Coffey MD [address] [place] [address] Social History Tobacco Use Types Packs/Day Years [...] 9:30 AM EST Appointment Non-[place] [address] Mushtaq Murphy APRN 10/31/2024 11:00 AM EST Office Visit Cardiology at [address] [address] Mushtaq Murphy, OFFICE CLERK documented as of this encounter Procedures Procedure Name Priority Date/Time Associated Diagnosis Comments XR CHEST ONE VIEW STAT 07/28/2024 10: 22 AM EST documented in this encounter Results * XR Chest One View (07/28/2024 10:22 AM EST) PT CLASS E RAD ADMITDTTM [id number] RAD PT RAD INFO [id number]^Potter ^Quinten RAD EXAM DESC XCXR1^XR Chest 1 View^RIS [facility] WORKSTATION ID [id number] RAD Anatomical Region Laterality [...] who have questions please contact the health weekend caregiver that requested your imaging first. ? [...] patients who have questions please contactthe health weekend caregiver that requested your imaging first. Quinten Coffey MD IMG DX ORDERABLES documented in this encounter Visit Diagnoses Not on filedocumented in this encounter Care Teams Bicycle Racer Relationship Specialty Start Date End Date Yoel Artis APRN [address] [place] [address] PCP - General Internal Medicine 11/18/22 07/29/24 documented as of this encounter
--- OUTSIDE RECORDS SUMMARY | 2024-10-19 10:02 | XMS_ITS | Encounter Summary ---
Author Organization [facility] [place] [address] Care Team Providers Care Breeding Technician Name Role Phone Yoel Artis APRN Primary Care Provider [phone] Reason for Referral * Consultation (Routine) - Closed Specialty Diagnoses / Procedures Referred By Theodore muro Referred To Contact Gastroenterology Diagnoses Proctalgia fugax Fecal smearing Constipation, unspecified constipation type group Yoel Dangelo APRN [facility] [place] [address] Paulette Glynn, PhD [facility] [place] [address] Referral ID Status Reason Start Date Expiration Date V isits Requested Visits Authorized [id number] Closed Consult, Test & Treat 06/01/2023 05/31/2024 1 1 Reason for Visit * Consultation (Routine) - Closed Specialty Diagnoses / Procedures Referred By Theodore muro Referred To Contact Gastroenterology Diagnoses Anal spasm motility- anal spasms Yoel Artis APRN [address] [place] [address] [facility] [place] [address] [address] Referral ID Status Reason Start Date Expiration Date V isits Requested Visits Authorized [id number] Closed Consult, Test & Treat PCP Updated and/or Approved 11/18/2022 11/18/2023 6 6 Encounter Details Date Type Department Care Team (Latest Contact Info) Description 06/01/2023 8:00 AM EDT TH Visit (TeleHealth) [place] [address] Yoel Dangelo, ARMED GUARD [facility] [place] [address] Proctalgia fugax; Fecal smearing; Constipation, unspecified constipation [...] hear from us within 1 week: Clinic [phone] Motility Lab scheduling [phone] Endoscopy scheduling- [phone] Diagnostics: -Colonoscopy for rectal pain -Anorectal manometry [...] connection and our services, please visit the [facility] Behavioral health website at: [email or web address]. Our hope is that through these classes, [...] the [facility] billing office ([email or web address]). Your insurance company may request a CPT code if you ask about [place]. [place] [address]. If you're interested in attending any of these classes or workshops, please reach out to our scheduling team via [facility] or phone ([phone]). You should start a fiber supplement if [...] Handout for Patients and Primary Care Providers [facility] What are functional bowel disorders? These are the most common type of gastrointestinal disorders in the [facility] The most common functional bowel disorder in the [facility] is irritable bowel syndrome (IBS) Irritable [...] what is the impact? 15-20% of general [place] population has IBS or FD or both 2nd most common cause for lost work days (after common cold) in [place] Estimated $30 billion dollar cost to [place] economy per year These disorders can have [...] with immediate onset of symptoms after infection); correction symptoms are expected in most patients however [...] to you primary care provider and/or local feed research aide and share this document. Treatment of functional [...] - this approach benefits most patients OTC (yrlz-iqu-pfbfzbc) medications can be used for ongoing bothersome [...] All-Bran psyllium buds, Metamucil, Konsyl, bulk psyllium ([employer] and [employer] stores) Specifically we recommend starting Metamucil or [...] but convincing medical evidence is still lacking Uzbn-svh-rfhscxn supplements including probiotics are not typically evaluated [...] to decrease antibiotic-associated diarrhea and antibiotic-related infections Qmvk-ulj-Gaugwxz Medications for Functional Gut Disorders Based on [...] a stool softener that is safe for correction usage (no risk of dependency) andthe dosage [...] (GERD) Often a combination of anti-nausea medications (kmzu-uzk-nmqzeuz or prescription) works better thanhigh doses of [...] for misuse/misinterpretation of this information Patient Resources [place] [employer] https://www.gastro.org/practice-guidance/ds-mvrnerr-ytlrnu/ topic/pohqsrefb-ulbhg-lrsszifr-ibs Badgut.org https://badgut.org/information-centre/p-j-hgzxczdml-topics/ibs/ AboutIBS.org https://www.aboutibs.org/ Uptodate.com https://www.uptodate.com/contents/eydqjszyt-eeftq-srayjvml-fmphde-vyd-baspvy documented in this encounter Progress Notes * [...] Denies weight loss Last colo 2017 at [facility] with no polyps. Current Regimen: Metamucil daily [...] recommendations above. The patient was located in [place] at the time of their visit. TIME SPENT WITH PATIENT Time spent reviewing records prior to this encounter on day of appointment: 2 minutes Time spent during encounter with patient including counselin minutes Time spent documenting encounter after office visit: 7 minutes Yoel Dangelo APRN [facility] [place] [address] documented in this encounter Plan of Treatment Upcoming Encounters Date Type Department Care Team (Late st Contact Info) Description 10/31/2024 9:30 AM EST Appointment Non[place] [address] Mushtaq Murphy APRN 10/31/2024 11:00 AM EST Office Visit Cardiology at [address] [address] Mushtaq Murphy APRN Scheduled Orders Name Type [...] type documented in this encounter Care Teams Breeding Technician Relationship Specialty Start Date End Date Yoel Artis APRN [address] [place] [address] PCP - General Internal Medicine 11/18/22 07/29/24 documented as of this encounter
--- OUTSIDE RECORDS SUMMARY | 2024-10-19 10:02 | XMS_ITS | Encounter Summary ---
[facility] [place] [address] Care Team Providers Care Reel Blade Bender Furnace Tender Name Role Phone Yoel Artis FREDRICK Primary Care Provider [phone] Encounter Details Date Type Department Care Team (Late st Contact Info) Description 07/29/2024 [place] [id number] Ivan Hernandez MD [facility] [address] Social History Tobacco Use Types Packs/Day Years Used Date Smoking Tobacco: Former Cigarettes Smokeless Tobacco: Never Alcohol Use Standard Drinks/Week Comments Not Currently 0 (1 standard drink = 0.6 oz pur e alcohol) [facility] Utilities Answer Date Recorded In the past 12 months has e [employer], gas, oil, or water Connotate threatened to shut off services in your [...] Hospital If Hospital to which patient presented= [facility]: ED Walk In [...] Unfractionated Heparin Plan STEMI Alert called: Yes Grain Trader Activated by: Lead Recreation Assistant Initial Disposition: Admit Grain Trader documented in this encounter Plan of Treatment Upcoming Encounters Date Type Department Care Team (Late st Contact Info) Description 10/31/2024 9:30 AM EST Appointment Non-Invasive [place] [address] Mushtaq Murphy APRN 10/31/2024 11:00 AM EST Office Visit Cardiology at [address] [address] Mushtaq Murphy APRN documented as of this encounter Visit Diagnoses Not on filedocumented in this encounter Care Teams Reel Blade Bender Furnace Tender Relationship Specialty Start Date End Date Yoel Artis APRN [address] [place] [id number] PCP - General Internal Medicine 11/18/22 07/29/24 documented as of this encounter
--- OUTSIDE RECORDS SUMMARY | 2024-10-19 10:02 | XMS_ITS | Encounter Summary ---
[place] [address] Care Team Providers Care Robotics Systems Engineer Name Role Phone Yoel Artis FREDRICK Primary Care Provider [phone] Encounter Details Date Type Department Care Team (Late st Contact Info) Description 08/26/2023 Telephone [place] [address] Madelyn Vasquez Social History Tobacco Use Types [...] - 08/26/2023 9:23 AM EST Korey Montoya [id number] Diagnosis/Indication: Rectal pain, fecal smearing Please review [...] ever had a/an Colonoscopy before? Yes: Date kiijiz9ksu ago [facility] If yes, [...] your procedure. Who will likely be your contract driver for the procedure? Please Verify the [...] 9:30 AM EST Appointment Non[place] [phone] Mushtaq Murphy APRN 10/31/2024 11:00 AM EST Office Visit Cardiology at [address] [phone] Mushtaq Murphy, FREDRICK documented as of this encounter Visit Diagnoses Not on filedocumented in this encounter Care Teams Robotics Systems Engineer Relationship Specialty Start Date End Date Yoel Artis APRN [address] [place] [address] PCP - General Internal Medicine 11/18/22 07/29/24 documented as of this encounter
--- OUTSIDE RECORDS SUMMARY | 2024-10-19 10:02 | XMS_ITS | Encounter Summary ---
[place] [address] Care Team Providers Care Rabbit Dresser Name Role Phone Yoel Artis Ute ALCALA Primary Care Provider [phone] Reason for Visit * Auth/Cert (Routine) Specialty Diagnoses / Procedures Referred By Theodore t Referred To Contact Diagnoses STEMI (ST elevation myocardial infarction) STEMI Procedures ER IPI Vahe Marvin MD [facility] [place] [address] [facility] Referral ID Status Reason Start Date Expiration Date Visits Re quested Visits Authorized [id number] 1 1 Encounter Details Date Type Department Care Team (Late st Contact Info) Description 07/29/2024 12:00 PM EST - 07/29/2024 12:54 PM EST Surgery [place] [address] Vahe Marvin MD [facility] [place] [address] CARDIAC CATHETERIZATION Social History Tobacco Use Types Packs/Day Years Used Date Smoking Tobacco: Former Cigarettes Smokeless Tobacco: Never Alcohol Use Standard Drinks/Week Comments Not Currently 0 (1 standard drink = 0.6 oz pur e alcohol) [facility] Utilities Answer Date Recorded In the [...] a group home (including now)? No 07/30/2024 DH IPV [...] Korey Montoya Patient Age: 74 y.o. Language: Sudanese Race: White Ethnicity: Not nor Admit [...] your inpatient physician through the [facility] Special Education Professor . Issues afterhours and on weekends will [...] transferred via air ambulance to [facility] on 07/29 for LHC and LOW to [...] transferred via air ambulance to [facility] for further management and LHC demonstrated 100% [...] the next year. Access was via right BUZZSAW OPERATOR HELPER and this sitewas clean, dry and intact [...] for Chest pain. Replaces: nitroGLYcerin 400 mcg/spray [place], Non-Aerosol 0.4 mg Quantity: 90 tablet Refills: [...] Refills: 0 STOPPED Medications nitroGLYcerin 400 mcg/spray [place], Non-Aerosol Commonly known as: NITROLINGUAL Replaced by: [...] of one year. After this time, your auto body straightener will determine if you need to continue [...] away. Stay on the phone. The emergency veneer slicing machine operator will tell you what to [...] appointments: During 8am-5pm Tuesday through Tuesday call [phone] to speak with a nurse in the cardiology clinic All other times call [phone] and ask to speak to the front office associate solutions market consultant. Follow up Appointments: PCP Alexia Mtz, LOOP DRIER OPERATOR [phone]. Please call to establish a follow up appointment within 1-2 weeks of discharge. Cardiology. Referral to heart failure has been sent. General Instructions None Future Appointments and Orders Future Orders Complete By Expires Referral to Cardiac Rehab [RCN873 Custom] As directed Process Instructions: If no progress note charted, please enter Clinical details in comments. Scheduling Instructions: Questions: My question or request is: STEMI, PCI- cardiac rehab at [facility] Referral to Cardiology [REF12 Custom] As directed [...] of one year. After this time, your auto body straightener will determine if you need to continue [...] away. Stay on the phone. The emergency veneer slicing machine operator will tell you what to [...] appointments: During 8am-5pm Tuesday through Tuesday call [phone] to speak with a nurse in the cardiology clinic All other times call [phone] and ask to speak to the front office associate solutions market consultant. Follow up Appointments: PCP Alexia Mtz, LOOP DRIER OPERATOR [phone]. Please call to establish a follow up [...] transferred via air ambulance to [facility] on 07[place] for LHC and LOW to LAD for 100% occlusion Social History: Pt lives with his in a 1 level home with 2 NAOMI. 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 [...] Total time: 35 (tef) minutes Time IN/OUT: 8013-1253 ZAIDA DUBOSE PT Pager: [phone] Physical Therapy Inpatient Rehabilitation Department * Yrn Velazquez MD - 08/03/2024 10:38 AM EST CV HOSPITALIST 2 - [facility] DAILY PROGRESS NOTE Page [phone] to reach a provider 04/04 Admit Date: [...] Compared to the overnight study by the solutions market consultant fellow the impella position is stable. 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 [facility] 07/29/24 Conclusions: * One vessel coronary artery disease (LAD) * Mild pulmonary hypertension * Elevated pulmonary capillary wedge pressure * Successful stent insertion of the proximal LAD lesion * See Dual Antiplatelet (DAPT) Recommendations above * Successful impella placement for cardiogenic shock. Telemetry: I have personally reviewed and interpreted the telemetry from the last 24 hours. [facility] Assessment: ASSESSMENT: Korey Montoya is a 74 y.o. male w/ PMH of hypertension, HLD, and BPH who presents for chief concern of chest pain after being found to have ST elevations on EKG. Patient transferred via air ambulance to [facility] on 07[place] for LHC and LOW to [...] to be determined OT: PCP Alexia Mtz, LOOP DRIER OPERATOR [phone] * Zaida Dubose, PT - 08/02/2024 2:08 PM EST Physical Therapy Evaluation Patient profile: Korey Montoya is a 74 y.o. male w/ PMH of hypertension, HLD, and BPH who presents for chief concern of chest pain after being found to have ST elevations on EKG. Patient transferred via air ambulance to [facility] on 07/29 for LHC and LOW to LAD for 100% occlusion Social History: Pt lives with his in a 1 level home with 2 NAOMI. 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 [...] Total time: 37 (eval) minutes Time IN/OUT: 5569-5732 ZAIDA DUBOSE PT Pager: [phone] Physical Therapy Inpatient Rehabilitation Department * Gagan [...] transferred via air ambulance to [facility] on 07/29 for LHC and LOW to LAD for 100% occlusion. TTE showed apical akinesis and inferior hypokinesis with EF 20%. RHC showed elevated filling pressures. Impella placed and P-level 6 at time of transfer to [facility]. CI initially 1.97, improved to 2.2 [...] PCP: Alexia Mtz APRN PCP phone number: [phone] Date of Admission: 07/29/2024 ( Hospital Day 4 days ) Attending:Bridgette Stauffer MD ID: Korey Montoya is a 74 y.o. male w/ PMH of hypertension, HLD, and BPH on Hospital Day4 for chief concern of chest pain after being found to have ST elevations on EKG. Patient transferred via air ambulance to [facility] on 07/29 for LHC and LOW to [...] 07/29/24 1621 PHART 7.48* 7.44 7.38 7.37 LTK5VZY 29* 29* 34* 36 PO2ART 71* 109* 141* 71* FAN1RHV 20.6 19.4* 19.5* 20.4 VBG (Venous Blood Gas) Recent Labs 07/29/24 1401 PHVEN 7.30* PO2VEN 39 WCA3JTM 20.1* Mixed Venous Sat No results for input(s): O9EMFL2 in the last 168 hours. Objective: Vitals [...] 07/29/24 1621 PHART 7.48* 7.44 7.38 7.37 YQB0AGF 29* 29* 34* 36 PO2ART 71* 109* 141* 71* XXV8QGZ 20.6 19.4* 19.5* 20.4 VBG (Venous Blood Gas) Recent Labs 07/29/24 1401 PHVEN 7.30* PO2VEN 39 FMX9LLG 20.1* Mixed Venous Sat No results for input(s): V0ASDX8 in the last 168 hours. Microbiology: Microbiology Results (Last 30 days) Procedure Component Value Units Date/Time Blood culture [[id number]] Collected: 07/29/24 160 Lab Status: Preliminary result Specimen: Blood, Venous Updated: 08/01/24 170 Blood Culture No growth at 72 hours Blood culture [[id number]] Collected: 07/29/24 160 Lab Status: Preliminary result Specimen: Blood, Venous Updated: 08/01/24 170 Blood Culture No growth at 72 hours Imaging: Results for orders placed or performed during the hospital encounter of 07/29/24 XR Chest One View (Exam End: 07/29/2024 2:30 PM) Result Value WORKSTATION ID [id number] Impression 1. No pulmonary edema. 2. No pleural effusion. 3. No pneumothorax. Thank you for letting us participate in the care of this patient. If you are a health care provider and have any questions regarding this report, please contact the number below. For patients who have questions please contact the health care companion that requested your imaging first. Electronically signed by: Chris Candelaria MD, [facility] ([phone]), at 07/29/2024 3:21 PM TTE ( 07/30/24) [...] Compared to the overnight study by the solutions market consultant fellow the impella position is stable. [...] transferred via air ambulance to [facility] on 07[place] for LHC and LOW to [...] MD Internal Medicine, PGY-1 Cardiology, [facility] 08/02/24 12:45 PM CARDIOLOGY STAFF NOTE [...] today). Transfer to floor. Krystal Parker MD, [facility], [facility] Staff Learning Center Coordinator professional architect * Gagan Catherine MD - 08/01/2024 11:12 [...] transferred via air ambulance to [facility] on 07/29 for LHC and LOW to [...] PCP: Alexia Mtz APRN PCP phone number: [phone] Date of Admission: 07/29/2024 ( Hospital Day 3 days ) Attending:Krystal Parker MD ID: Korey Montoya is a 74 y.o. male w/ PMH of hypertension, HLD, and BPH on Hospital Day3 for chief concern of chest pain after being found to have ST elevations on EKG. Patient transferred via air ambulance to [facility] on 07/29 for LHC and LOW to [...] 07/29/24 1621 PHART 7.48* 7.44 7.38 7.37 YRP2KOH 29* 29* 34* 36 PO2ART 71* 109* 141* 71* QJQ9GQZ 20.6 19.4* 19.5* 20.4 VBG (Venous Blood Gas) Recent Labs 07/29/24 1401 PHVEN 7.30* PO2VEN 39 GHH4UDV 20.1* Mixed Venous Sat No results for input(s): A8XDHC5 in the last 168 hours. PA Catheter [...] 07/29/24 1621 PHART 7.48* 7.44 7.38 7.37 CCZ2QKC 29* 29* 34* 36 PO2ART 71* 109* 141* 71* WZT5EBT 20.6 19.4* 19.5* 20.4 VBG (Venous Blood Gas) Recent Labs 07/29/24 1401 PHVEN 7.30* PO2VEN 39 UDI2VYM 20.1* Mixed Venous Sat No results for input(s): M3FIWO4 in the last 168 hours. Microbiology: Microbiology Results (Last 30 days) Procedure Component Value Units Date/Time Blood culture [[id number]] Collected: 07/29/241607 Lab Status: Preliminary result Specimen: Blood, Venous Updated: 07/31/241700 Blood Culture No growth at 48 hours Blood culture [[id number]] Collected: 07/29/241607 Lab Status: Preliminary result Specimen: Blood, Venous Updated: 07/31/241700 Blood Culture No growth at 48 hours Imaging: Results for orders placed or performed during the hospital encounter of 07/29/24 XR Chest One View (Exam End: 07/29/2024 2:30 PM) Result Value WORKSTATION ID [id number] Impression 1. No pulmonary edema. 2. No pleural effusion. 3. No pneumothorax. Thank you for letting us participate in the care of this patient. If you are a health care provider and have any questions regarding this report, please contact the number below. For patients who have questions please contact the health care companion that requested your imaging first. Electronically signed by: Chris Candelaria MD, [facility] ([phone]), at 07/29/2024 3:21 PM TTE ( 07/30/24) [...] Compared to the overnight study by the solutions market consultant fellow the impella position is stable. [...] transferred via air ambulance to [facility] on 07[place] for LHC and LOW to [...] with him; questions answered. Krystal Parker MD, [facility], [facility] Staff Learning Center Coordinator professional architect * Krystal Parker MD - 07/31/2024 1:06 [...] transferred via air ambulance to [facility] on 07/[place] for LHC and LOW to LAD for 100% occlusion. TTE showed apical akinesis and inferior hypokinesis with EF 20%. RHC showed elevated filling pressures. Impella placed and P-level 6 at time of transfer to [facility]. CI initially 1.97, improved to 2.2 After impella. Received about 3 L of fluid during procedural course. Patient initially required norepinephrine 30, epinephrine 10, and vasopressin 0.04 for hemodynamic support, which was weaned upon arrival to [facility] to norepinephrine 20and levo 0.04 N [...] PCP: Alexia Mtz APRN PCP phone number: [phone] Date of Admission: 07/29/2024 ( Hospital Day 2 days ) Attending:Krystal Parker MD ID: Korey Montoya is a 74 y.o. male w/ PMH of hypertension, HLD, and BPH on Hospital Day2 for chief concern of chest pain after being found to have ST elevations on EKG. Patient transferred via air ambulance to [facility] on 07[place]29 for LHC and LOW to [...] 0057 07/29/24 1621 PHART 7.44 7.38 7.37 GMT3RCB 29* 34* 36 PO2ART 109* 141* 71* ROA5EYS 19.4* 19.5* 20.4 VBG (Venous Blood Gas) Recent Labs 07/29/24 1401 PHVEN 7.30* PO2VEN 39 SPX4TPA 20.1* Mixed Venous Sat No results for input(s): Y1YWZN3 in the last 168 hours. PA Catheter [...] 0057 07/29/24 1621 PHART 7.44 7.38 7.37 WZL9DYI 29* 34* 36 PO2ART 109* 141* 71* APK2CKS 19.4* 19.5* 20.4 VBG (Venous Blood Gas) Recent Labs 07/29/24 1401 PHVEN 7.30* PO2VEN 39 HED8SVQ 20.1* Mixed Venous Sat No results for input(s): D0MXWZ4 in the last 168 hours. Microbiology: Microbiology Results (Last 30 days) Procedure Component Value Units Date/Time Blood culture [[id number]] Collected: 07/29/24 160 Lab Status: Preliminary result Specimen: Blood, Venous Updated: 07/30/24 170 Blood Culture No Growth at 18-24 hrs. Blood culture [[id number]] Collected: 07/29/241607 Lab Status: Preliminary result Specimen: Blood, Venous Updated: 07/30/241700 Blood Culture No Growth at 18-24 hrs. Imaging: Results for orders placed or performed during the hospital encounter of 07/29/24 XR Chest One View (Exam End: 07/29/2024 2:30 PM) Result Value WORKSTATION ID [id number] Impression 1. No pulmonary edema. 2. No pleural effusion. 3. No pneumothorax. Thank you for letting us participate in the care of this patient. If you are a health care provider and have any questions regarding this report, please contact the number below. For patients who have questions please contact the health care companion that requested your imaging first. Electronically signed by: Chris Candelaria MD, [facility] ([phone]), at 07/29/2024 3:21 PM TTE ( 07/30/24) [...] Compared to the overnight study by the solutions market consultant fellow the impella position is stable. [...] transferred via air ambulance to [facility] on 07[place] for LHC and LOW to [...] work to optimize volume status while continuing xhcxrzz-rqhavk-ncunydsfeu therapies at this time. Obtain comprehensive TTE. [...] transferred via air ambulance to [facility] on 07/29 for LHC and LOW to LAD for 100% occlusion. TTE showed apical akinesis and inferior hypokinesis with EF 20%. RHC showed elevated filling pressures. Impella placed and P-level 6 at time of transfer to [facility]. CI initially 1.97, improved to 2.2 After impella. Received about 3 L of fluid during procedural course. Patient initially required norepinephrine 30, epinephrine 10, and vasopressin 0.04 for hemodynamic support, which was weaned upon arrival to [facility] to norepinephrine 20and levo 0.04 N [...] PCP: Yoel Artis APRN PCP phone number: [phone] Date of Admission: 07/29/2024 ( Hospital Day 1 day ) Attending:Aubree Silverio MD ID: Korey Montoya is a 74 y.o. male w/ PMH of hypertension, HLD, and BPH on Hospital Day1 for chief concern of chest pain after being found to have ST elevations on EKG. Patient transferred via air ambulance to [facility] on 07/29 for LHC and LOW to [...] 0057 07/29/24 1621 PHART 7.44 7.38 7.37 TWY7VVT 29* 34* 36 PO2ART 109* 141* 71* ADA6ZFS 19.4* 19.5* 20.4 VBG (Venous Blood Gas) Recent Labs 07/29/24 1401 PHVEN 7.30* PO2VEN 39 YCR8UMV 20.1* Lactate ( Last 12 hours) 1.3 >> 1.2 Mixed Venous Sat No results for input(s): E3SMML5 in the last 168 hours. PA Catheter [...] 0057 07/29/24 1621 PHART 7.44 7.38 7.37 RKZ0BVB 29* 34* 36 PO2ART 109* 141* 71* FJP6SOJ 19.4* 19.5* 20.4 VBG (Venous Blood Gas) Recent Labs 07/29/24 1401 PHVEN 7.30* PO2VEN 39 OZC2FUH 20.1* Mixed Venous Sat No results for input(s): B6LSZT4 in the last 168 hours. Microbiology: Microbiology Results (Last 30 days) Procedure Component Value Units Date/Time Blood culture [[id number]] Collected: 07/29/24 1608 Lab Status: In process Specimen: Blood, Venous Updated: 07/29/24 1626 Blood culture [[id number]] Collected: 07/29/24 1608 Lab Status: In process Specimen: Blood, Venous Updated: 07/29/24 1615 Imaging: Results for orders placed or performed during the hospital encounter of 07/29/24 XR Chest One View (Exam End: 07/29/2024 2:30 PM) Result Value WORKSTATION ID [id number] Impression 1. No pulmonary edema. 2. No pleural effusion. 3. No pneumothorax. Thank you for letting us participate in the care of this patient. If you are a health care provider and have any questions regarding this report, please contact the number below. For patients who have questions please contact the health care companion that requested your imaging first. Medications Scheduled [...] transferred via air ambulance to [facility] on 07[place] for LHC and LOW to [...] transferred via air ambulance to [facility] on 07/29 for LHC and LOW to [...] transferred via air ambulance to [facility] for further management and [facility] demo nstrated 100% occlusion. No significant RCA, LMCA, or LCX disease. LOW placed in LAD with some residual distal disease meriting placement of overlapping distal stent. TTE showed apical akinesis and inferior hypokinesis with EF 20%. RHC showed elevated filling pressures. Impella placed and P-level 6 at time of transfer to [facility]. CI initially 1.97, improved to 2.2 After impella. Received about 3 L of fluid during procedural course. Patient initially required norepinephrine, epinephrine, and vasopressin for hemodynamic support, which was weaned upon arrival to [facility] to norepinephrine 20 and levo 0.04 [...] Mcgovern MD [facility] ENDOSCOPY Significant Family History: Family History Problem [...] mouth. Past Week nitroGLYcerin (NITROLINGUAL) 400 mcg/spray [place], Non-Aerosol 1 spray to anus for proctalgia [...] 3.5 guiding catheter and a 3.5 [address] [facility] [place] [address] 20 Mhz using Manual pullback. Imaging [...] priority for the procedure was Emergent. The [facility] indication for the procedure was [...] atmospheres. A premounted 3.00 x 22 mm [place] Cherry (LOW) was deployed with a maximum inflation [...] A premounted 3.00 x 08 mm [place] Cherry (LOW) was deployed with a maximum inflation [...] a limited study performed by a fellow solutions market consultant to evaluate for cardiogenic shock with [...] Compared to the overnight study by the solutions market consultant fellow the impella position is stable. [...] transferred via air ambulance to [facility] on 07/[place] for LHC and LOW to [...] PCP: Yoel Artis APRN PCP phone number: [phone] Date of Admission: 07/29/2024 ( Hospital Day 0 days ) Attending:Aubree Silverio MD ID: Korey Montoya is a 74 y.o. male w/ PMH of hypertension, HLD, and BPH who presents for chief concern of chest pain after being found to have ST elevations on EKG. Patient transferred via air ambulance to [facility] on 07/29 for LHC and LOW to LAD for 100% occlusion. HPI: Korey Montoya is a 74 y.o. male w/ PMH of hypertension, HLD, and BPH who presents for chief concern of chest pain after being found to have ST elevations on EKG. Patient transferred via air ambulance to [facility] on 07/29 for LHC and LOW to [...] transferred via air ambulance to [facility] for further management and LHC demonstrated 100% [...] Mcgovern MD [facility] ENDOSCOPY Family History Family History Problem Relation [...] Blood Gas) No results for input(s): PHART, MIW9XMF, PO2ART, DKM7CQU, LACTATEVEN, DED1AHZ, PFRATIOART2 in the last 168 hours. VBG (Venous Blood Gas) Recent Labs 07/29/24 1401 PHVEN 7.30* PO2VEN 39 DWC7RXK 20.1* Mixed Venous Sat No results for input(s): E4CJGZ8 in the last 168 hours. PA Catheter [...] Blood Gas) No results for input(s): PHART, XDO9KLI, PO2ART, FBL0YJC, LACTATEVEN, YQA6WVZ, PFRATIOART2 in the last 168 hours. VBG (Venous Blood Gas) Recent Labs 07/29/24 1401 PHVEN 7.30* PO2VEN 39 OMP6ARM 20.1* Mixed Venous Sat No results for input(s): H1BDKX6 in the last 168 hours. Microbiology: Microbiology [...] transferred via air ambulance to [facility] on 07/[place] for LHC. Found to have 100% occlusion of LAD for which he underwent LOW to LAD.Otherwise no other significant vessel disease. Fahad is currently hemodynamically tenuous but improving upon admission to [facility], requiring hemodynamic support with norepinephrine and vasopressin at time of admission along with mechanical support with Impella device. Reassuringly, he demonstrates decreasing pressor requirements since admission to [facility], with epinephrine completely weaned. He does [...] MD Internal Medicine, PGY-3 Cardiology, [facility] 07/29/24 3:14 PM Cardiology Attending Note [...] FACC Section of Cardiovascular Medicine [facility] Supplier Quality Specialistbiological lab technician [facility] This patient meets or has met [...] to the planned procedure. Hand Hygiene: The treasury consultant did perform hand hygiene prior to [...] ease. Good wave form. Ivan Hernandez MD Forensic Structural Engineer Associated attestation - Rolando Yeh MD [...] an outpatient cardiac rehabilitation program at [facility] was discussed. Patient agrees to a referral [...] No Patient is insured through: Primary Insurance: [employer] MANAGED MEDICARE Payor: [employer] MANAGED MEDICARE / Plan: [facility] COMPLETE / Product [...] of Discharge: 08/04/2024 Gaby Wong RN, CM [phone] * Initial Assessments - Char Meza OT - 08/03/2024 10:00 AM EST Occupational Therapy Evaluation Patient profile: Korey Montoya is a 74 y.o. male admitted on 07/29/2024 w/ PMH of hypertension, HLD, and BPH who presents for chief concern of chest pain after being found to have ST elevations onEKG. Patient transferred via air ambulance to [facility] on 07[place] for LHC and LOW to LAD for 100% occlusion. Past Medical History: Diagnosis Date ADHD HLD (hyperlipidemia) HTN (hypertension) Tremor Past Surgical History: Procedure Laterality Date HAND SURGERY PRO COLONOSCOPY, REMV LESN, SNARE N/A 08/30/2023 COLONOSCOPY, POLYPECTOMY, REMOVAL LESION BY SNARE (WRVU 4.57) performed by Brandan Mcgovern MD [facility] ENDOSCOPY Social History: Patient lives with his . Home Setup: 2 NAOMI to a 1 level home. DME: none Baseline ADL/Mobility: Independent with ADLs and IADLs. Enjoys walking. able assist as needed. Precautions/Special Considerations: Full code. Risk for falls. Subjective: I have access to an [employer] gym. (Educated to wait for MD to [...] evaluation only Total Minutes, Occupational Therapy: 14 ([id number] (evaluation)) 2017 OT Evaluation Code Rationale: Diagnosis [...] and measurable assessment of functional outcome. Pager: [phone] Char Meza OT 08/03/2024 Occupational Therapy Rehabilitation [...] (Interventions Implemented as Appropriate) Flowsheets (Taken 08/01/2024 7627) Outcome Summary: A+O, no pain. NSR. MAP [...] Procedure Note: Patient Name: Korey Montoya : [id number] MR#: [id number] Case Date: 07/31/2024 Special Education Professor: Surgeons and Role: * Maldonado Luis MD - Primary * Quinten Charles PA - Physician Segmental Wall Installer Preoperative diagnosis: shock, impella Postoperative diagnosis: * same * Procedure(s) performed: Impella removal form right BUZZSAW OPERATOR HELPER Access: Right BUZZSAW OPERATOR HELPER A time-out was conducted prior to the [...] receiving care in [place] must abide by [place] law. The hierarchy [...] (i) The agent with financial power of defense attorney or a conservator appointed in [...] it) Home Address confirmed as: Mailing Address: [address] [address] Physical Address: [address] [place] [address] Social & Family Supports: All names listed [...] Coverage: Primary Insurance: [employer] MANAGED MEDICARE [facility] / Plan: [facility] MANAGED MEDICARE COMPLETE / Product Type: *No Product type* / Secondary Insurance: N/A ; Prescription Coverage: Yes Preferred Pharmacy: [address] - [address] [address] [place] Status: Patient is a : No Primary Care Provider confirmed: Alexia Mtz, LOOP DRIER OPERATOR [phone] Patient/Caregiver Goals of Treatment: return home Potential [...] Goal: Patient-Specific Goal (Individualized) 07/30/2024 05 by Chsae Castro RN Outcome: Ongoing (Interventions [...] 07/29/2024 6:25 PM EST Pt arrived from research lab assistant @ 1400. CXR and EKG [...] Procedure Note: Patient Name: Korey Montoya : [id number] MR#: [id number] Case Date: 07/29/2024 Special Education Professor: Surgeons and Role: * Vahe Marvin MD - Primary * Susannah Watts PA - Physician Segmental Wall Installer Preoperative diagnosis: STEMI Postoperative diagnosis: * STEMI, LAD Artery * * Cardiogenic Shock * Procedure(s) performed: [facility] Coronary angiogram Stent insertion coronary IVUS coronary Venous line insert [facility] [place] Colette Catheter Vascular closure device Ventricular assist [...] x 22 mm to 14 deonna JEISON Cherry with LIZ 3 flow. Residual distal disease at distal stent, overlapping distal stent was inserted with 3.0 x 8 mm JEISON Cherry. Systolic's in the 80's sustained. Patient re [...] 9:30 AM EST Appointment [place] [address] Mushtaq Murphy, LOOP DRIER OPERATOR 10/31/2024 11:00 AM EST Office Visit Cardiology at [address] [phone] Mushtaq Murphy, LOOP DRIER OPERATOR Scheduled Orders Name Type Priority Associated [...] HEMATOLOGY ORDERABLE S [facility] [place] [address] * Magnesium (08/04/2024 6:08 AM EST) Pathologist [facility] Magnesium 0.85 0.69 - 1.07 mMol/L 08/04/2024 7:07 AM [facility] Blood VENOUS BLOOD SPECIMEN / Unknown Venipuncture / Unknown 08/04/2024 6:08 AM EST 08/04/2024 6:19 AM EST Bridgette Stauffer MD CHEMISTRY ORDERABLES [facility] [place] [address] * Basic Metabolic Panel (08/04/2024 6:08 AM EST) Pathologist [facility] Glucose 93 65 - 199 mg/dL [...] MD CHEMISTRY ORDERABLES [facility] [place] [address] * (ABNORMAL) CBC (with Diff) (08/03/2024 5:16 [...] MD HEMATOLOGY ORDERABLE S Performing Organization Address City/[facility]/ZIP Co de Phone Number [facility] [place] [address] * Magnesium (08/03/2024 5:16 AM EST) Magnesium 0.89 0.69 - 1.07 mMol/L 08/03/2024 5:56 AM [facility] Blood VENOUS BLOOD SPECIMEN / Unknown Venipuncture / Unknown 08/03/2024 5:16 AM EST 08/03/2024 5:23 AM EST Bridgette Stauffer MD CHEMISTRY ORDERABLES [facility] [place] [address] * (ABNORMAL) Basic Metabolic Panel (08/03/2024 5:16 AM EST) Glucose 98 65 - 199 mg/dL 08/03/2024 5:56 AM [facility] Comment:Glucose Concentratio n >=200 mg/dL plus symptoms is consistent with Diabetes Mellitus. Blood Urea Nitrogen 16 10 - 20 mg/dL 08/03/2024 5:56 AM [facility] Creatinine 0.85 0.80 - 1.50 mg/dL 08/03/2024 5:[address] [facility] Sodium 137 135 - 145 [...] MD CHEMISTRY ORDERABLES [facility] [place] [address] * POC, GLUCOSE (08/02/2024 7:47 AM EST) Glucometer, POC 89 65 - 199 mg/dL 08/02/2024 7:47 AM [facility] Comment:Supplemental ranges: <140 mg/dL before meals <180 mg/dL all other times of the day. Blood CAPILLARY BLOOD / Unknown 08/02/2024 7:47 AM EST 08/02/2024 7:47 AM EST Krystal Parker MD POINT OF CARE TEST O RDERABLES [facility] [place] [address] * (ABNORMAL) CBC (with Diff) (08/02/2024 4:20 AM EST) [facility] White Blood Cell 8.51 4.00 - 9.50 x10(3)/mc L 08/02/2024 4:50 AM [facility] Red Blood Cell 4.41(L) 4.58 [...] MD HEMATOLOGY ORDERABLE S Performing Organization Address City/[facility]/ZIP Co de Phone Number [facility] [place] [address] * Magnesium (08/02/2024 4:20 AM EST) Magnesium 0.79 0.69 - 1.07 mMol/L 08/02/2024 5:06 AM [facility] Blood VENOUS BLOOD SPECIMEN / Unknown Venipuncture / Unknown 08/02/2024 4:20 AM EST 08/02/2024 4:37 AM EST Bridgette Stauffer MD CHEMISTRY ORDERABLES Performing Organization Address City/[facility] Co de Phone Number [facility] [place] [address] * (ABNORMAL) Basic Metabolic Panel (08/02/2024 4:20 [...] - 107 mMol/L 08/02/2024 5:[address] [facility] Carbon Dioxide 23 22 - [...] Stauffer MD CHEMISTRY ORDERABLES Performing Organization Address City/State/[facility] Co de Phone Number [facility] [place] [address] * Potassium (08/01/2024 8:39 PM EST) Potassium 4.0 3.5 - 5.0 mMol/L 08/01/2024 9:[address] [facility] Blood VENOUS BLOOD SPECIMEN / Unknown Venipuncture / Unknown 08/01/2024 8:39 PM EST 08/01/2024 8:51 PM EST Aubree Silverio MD CHEMISTRY ORDERABL ES Performing Organization Address [facility] Co de Phone Number [facility] [place] [address] * POC, GLUCOSE (08/01/2024 8:35 PM EST) Glucometer, POC 112 65 - 199 mg/dL 08/01/2024 8:[address] [facility] Comment:Supplemental ranges: <140 mg/dL before meals <180 mg/dL all other times of the day. Blood CAPILLARY BLOOD / Unknown 08/01/2024 8:35 PM EST 08/01/2024 8:36 PM EST Krystal Parker MD POINT OF CARE TEST O RDKAY Performing Organization Address [facility] de Phone Number [facility] [place] [address] * POC, GLUCOSE (08/01/2024 4:55 PM EST) Glucometer, POC 99 65 - 199 mg/dL 08/01/2024 4:[address] [facility] Comment:Supplemental ranges: <140 mg/dL before meals <180 mg/dL all other times of the day. Blood CAPILLARY BLOOD / Unknown 08/01/2024 4:55 PM EST 08/01/2024 4:56 PM EST Krystal Parker MD POINT OF CARE TEST O JOSH Performing Organization Address [facility] Co de Phone Number [facility] [place] [address] * POC, GLUCOSE (08/01/2024 12:42 PM EST) Glucometer, POC 130 65 - 199 mg/dL 08/01/2024 12:[address] [facility] Comment:Supplemental ranges: <140 mg/dL before meals <180 mg/dL all other times of the day. Blood CAPILLARY BLOOD / Unknown 08/01/2024 12:42 PM EST 08/01/2024 12:43 PM EST Krystal Parker MD POINT OF CARE TEST O RDERASHAY Performing Organization Address City/[facility]/ZIP Co de Phone Number [facility] [place] [address] * (ABNORMAL) Cooximetry, POC (08/01/2024 10:45 AM EST) pO2, Coox 32 mmHg 08/01/2024 10:[address] [facility] Hemoglobin, Coox 12.9(L) 13.7 - [...] MD POINT OF CARE TEST O RDKAY [facility] [place] [address] * Potassium (08/01/2024 8:20 AM EST) Potassium 4.0 3.5 - 5.0 mMol/L 08/01/2024 10:[address] [facility] Blood ARTERIAL BLOOD / Unknown Venipuncture / Unknown 08/01/2024 8:20 AM EST 08/01/2024 8:30 AM EST Aubree Silverio MD CHEMISTRY ORDERABL ES Performing Organization Address City/[facility]/ZIP Co de Phone Number [facility] [place] [address] * POC, GLUCOSE (08/01/2024 7:44 AM EST) [facility] Glucometer, POC 86 65 - 199 mg/dL 08/01/2024 7:44 AM [facility] Comment:Supplemental ranges: <140 mg/dL before meals <180 mg/dL all other times of the day. Blood CAPILLARY BLOOD / Unknown 08/01/2024 7:44 AM EST 08/01/2024 7:44 AM EST Krystal Parker MD POINT OF CARE TEST O RDERABLES Performing Organization Address [facility] Co de Phone Number [facility] [place] [address] * (ABNORMAL) CBC (with Diff) (08/01/2024 4:18 AM EST) [facility] White Blood Cell 8.51 4.00 - [...] % 0.2 % 08/01/2024 4:[address] [facility] Baso Absolute <0.04 0.00 - 0.10 x10(3)/mc L 08/01/2024 4:[address] [facility] Immature Gran % 0.4 % 4:53 AM [facility] Immature Gran Absolute <0.04 0.00 - 0.04 x10(3)/mc L 08/01/2024 4:[address] [facility] Blood VENOUS BLOOD SPECIMEN / Unknown Venipuncture / Unknown 08/01/2024 4:18 AM EST 08/01/2024 4:29 AM EST Bridgette Stauffer MD HEMATOLOGY ORDERABLE S [facility] [place] [address] * Magnesium (08/01/2024 4:18 AM EST) Magnesium 0.74 0.69 - 1.07 mMol/L 08/01/2024 5:00 AM [facility] Blood VENOUS BLOOD SPECIMEN / Unknown Venipuncture / Unknown 08/01/2024 4:18 AM EST 08/01/2024 4:29 AM EST Bridgette Stauffer MD CHEMISTRY ORDERABLES [facility] [place] [address] * (ABNORMAL) Basic Metabolic Panel (08/01/2024 4:18 AM EST) Glucose 107 65 - 199 mg/dL 08/01/2024 5:00 AM [facility] Comment:Glucose Concentratio n >=200 mg/dL plus symptoms is consistent with Diabetes Mellitus. Blood Urea Nitrogen 8(L) 10 - 20 mg/dL 08/01/2024 5:[address] [facility] Creatinine 0.82 0.80 - 1.50 [...] MD CHEMISTRY ORDERABLES [facility] [place] [address] * POC, GLUCOSE (07/31/2024 8:41 PM EST) [facility] Signature Glucometer, POC 73 65 - 199 mg/dL 07/31/2024 8:[address] [facility] Comment:Supplemental ranges: <140 mg/dL before meals <180 mg/dL all other times of the day. Blood CAPILLARY BLOOD / Unknown 07/31/2024 8:41 PM EST 07/31/2024 8:41 PM EST Krystal Parker MD POINT OF CARE TEST O RDERABLES [facility] [place] [address] * CARDIAC CATHETERIZATION (07/31/2024 5:53 PM EST) Anatomical Region Laterality Modality Other Narrative 08/01/2024 12:37 PM EST ?[facility] ? Cardiac Catheterization/Intervention Report ? Patient Name: Korey Montoya Kyrie. ? Procedure Date: 07/31/2024 ? A #: [id number] ? Primary Physician: Maldonado Luis ? Case #: [id number] ? File Name: [id number] ? Catheterization Order Number: [id number] ? [facility] ?Operator Assistant I [facility] ? Final Report [place], [place] ? Patient Name: ? Korey Mittal. Jan ?ID#: ?[id number] ? : ?1950 ? Procedure Date: ? [...] ? Comments: ?Impella removed from the right BUZZSAW OPERATOR HELPER with deployment of Perclose and ?Angioseal. ??Good [...] Maldonado Luis MD - 08/01/2024 [facility] Cardiac Catheterization/Intervention Report Patient Name: Korey Montoya Procedure Date: 07/31/2024 A #: [id number] Primary Physician: Maldonado Luis Case #: [id number] File Name: [id number] Catheterization Order Number: [id number] [facility] FinalReport [place], [place] Patient Name: Korey Montoya ID#:[id number] :1950 Procedure Date: July 31, 2024 Case [...] designated as ASA Class IV. The [facility] clinical frailtyscale is 4: Vulnerable. Diagnostic [...] procedures. Comments: Impella removed from the right BUZZSAW OPERATOR HELPER with deployment of Perclose and Angioseal. Good [...] Maldonado Luis M.D. Report Finalized: 08/01/2024 12:31 Maldoando Luis MD CARDIAC CATH ORDERAB LES * POC, GLUCOSE (07/31/2024 11:04 AM EST) [facility] Glucometer, POC 82 65 - 199 mg/dL 07/31/2024 11:04 AM [facility] Comment:Supplemental ranges: <140 mg/dL before meals <180 mg/dL all other times of the day. Blood CAPILLARY BLOOD / Unknown 07/31/2024 11:04 AM EST 07/31/2024 11:04 AM EST Krystal Parker MD POINT OF CARE TEST O RDERABLES [facility] [place] [address] * (ABNORMAL) Blood Gas, Arterial POC (07/31/2024 8:29 AM EST) pH, Arterial 7.48(H) 7.35 - 7.45 07/31/2024 8:30 AM [facility] PCO2, Arterial 29(L) 35 - 45 mmHg 07/31/2024 8:30 AM [facility] PO2, Arterial 71(L) [...] TEST O RDERABLES [facility] [place] [address] * POC, GLUCOSE (07/31/2024 7:47 AM EST) Glucometer, POC 82 65 - 199 mg/dL 07/31/2024 7:53 AM [facility] Comment:Supplemental ranges: <140 mg/dL before meals <180 mg/dL all other times of the day. Blood CAPILLARY BLOOD / Unknown 07/31/2024 7:47 AM EST 07/31/2024 7:53 AM EST Krystal Parker MD POINT OF CARE TEST O RDERABLES [facility] [place] [address] * (ABNORMAL) CBC (with Diff) (07/31/2024 1:08 [...] HEMATOLOGY ORDERABLE S [facility] [place] [address] * Magnesium (07/31/2024 1:08 AM EST) Pathologist [facility] Magnesium 0.89 0.69 - 1.07 mMol/L 07/31/2024 1:46 AM [facility] Blood VENOUS BLOOD SPECIMEN / Unknown Venipuncture / Unknown 07/31/2024 1:08 AM EST 07/31/2024 1:18 AM EST Bridgette Stauffer MD CHEMISTRY ORDERABLES Performing Organization Address City/[facility]/ZIP Co de Phone Number [facility] [place] [address] * (ABNORMAL) Basic Metabolic Panel (07/31/2024 1:08 AM EST) [facility] Glucose 97 65 - 199 mg/dL [...] - 10.5 mg/dL 07/31/2024 1:[address] [facility] Est Glomerular Filtration Rate - Male 84 mL/min/1. 73 m?? 07/31/2024 1:[address] [facility] Comment: [...] MD CHEMISTRY ORDERABLES [facility] [place] [address] * (ABNORMAL) Hepatic Function Panel (07/31/2024 1:08 AM EST) Albumin 3.1(L) 3.2 - 5.2 g/dL 07/31/2024 1:[address] [facility] Aspartate Aminotransferase 192(H) <=39 unit/L 07/31/2024 1:[address] [facility] Alanine Aminotransferase 59(H) 0 - 55 unit/L 07/31/2024 1:[address] [facility] Alkaline Phosphatase 46 40 - 130 unit/L 07/31/2024 1:[address] [facility] Bilirubin, Total 0.4 <=1.3 mg/dL 07/31/2024 1:[address] [facility] Bilirubin, Direct <0.2 0.0 - 0.3 mg/dL 07/31/2024 1:[address] [facility] Protein, Total 5.0(L) 6.1 - 8.0 g/dL 07/31/2024 1:[address] [facility] Blood VENOUS BLOOD SPECIMEN / Unknown Venipuncture / Unknown 07/31/2024 1:08 AM EST 07/31/2024 1:18 AM EST Krystal Parker MD CHEMISTRY ORDERABLES Performing Organization Address City/[facility]/ZIP Co de Phone Number [facility] [place] [address] * POC, GLUCOSE (07/30/2024 8:03 PM EST) Glucometer, POC 86 65 - 199 mg/dL 07/30/2024 8:[address] [facility] Comment:Supplemental ranges: <140 mg/dL before meals <180 mg/dL all other times of the day. Blood CAPILLARY BLOOD / Unknown 07/30/2024 8:03 PM EST 07/30/2024 8:03 PM EST Krystal Parker MD POINT OF CARE TEST O RDERABLES Performing Organization Address [facility] Co de Phone Number [facility] [place] [address] * Potassium (07/30/2024 8:03 PM EST) Potassium 3.8 3.5 - 5.0 mMol/L 07/30/2024 9:[address] [facility] Blood VENOUS BLOOD SPECIMEN / Unknown Venipuncture / Unknown 07/30/2024 8:03 PM EST 07/30/2024 8:22 PM EST Aubree Silverio MD CHEMISTRY ORDERABL ES Performing Organization Address [facility] Co de Phone Number [facility] [place] [address] * POC, GLUCOSE (07/30/2024 6:23 PM EST) Glucometer, POC 93 65 - 199 mg/dL 07/30/2024 6:[address] [facility] Comment:Supplemental ranges: <140 mg/dL before meals <180 mg/dL all other times of the day. Blood CAPILLARY BLOOD / Unknown 07/30/2024 6:23 PM EST 07/30/2024 6:24 PM EST Krystal Parker MD POINT OF CARE TEST O RDERABLES Performing Organization Address City/[facility]/ZIP Co de Phone Number [facility] [place] [address] * POC, GLUCOSE (07/30/2024 5:08 PM EST) Glucometer, POC 78 65 - 199 mg/dL 07/30/2024 5:[address] [facility] Comment:Supplemental ranges: <140 mg/dL before meals <180 mg/dL all other times of the day. Blood CAPILLARY BLOOD / Unknown 07/30/2024 5:08 PM EST 07/30/2024 5:08 PM EST Krystal Parker MD POINT OF CARE TEST O RDERABLES Performing Organization Address [facility]/ZIP Co de Phone Number [facility] [place] [address] * (ABNORMAL) Phosphorus (07/30/2024 3:08 PM EST) Phosphorus 2.1(L) 2.5 - 4.5 mg/dL 07/30/2024 3:[address] [facility] Blood VENOUS BLOOD SPECIMEN / Unknown Venipuncture / Unknown 07/30/2024 3:08 PM EST 07/30/2024 3:12 PM EST Aubree Silverio MD CHEMISTRY ORDERABL ES Performing Organization Address City/[facility]/ZIP Co de Phone Number [facility] [place] [address] * Magnesium (07/30/2024 3:08 PM EST) Magnesium 0.90 0.69 - 1.07 mMol/L 07/30/2024 3:[address] [facility] Blood VENOUS BLOOD SPECIMEN / Unknown Venipuncture / Unknown 07/30/2024 3:08 PM EST 07/30/2024 3:12 PM EST Aubree Silverio MD CHEMISTRY ORDERABL ES [facility] [place] [address] * (ABNORMAL) Basic Metabolic Panel (07/30/2024 3:08 PM EST) Pathologist [facility] Glucose 105 65 - 199 mg/dL [...] - 5.0 mMol/L 07/30/2024 4:[address] [facility] Chloride 109(H) 98 - 107 mMol/L 07/30/2024 4:[address] [facility] Carbon Dioxide 21(L) 22 - 31 mMol/L 07/30/2024 4:[address] [facility] Anion Gap 11 5 - 15 mMol/L 07/30/2024 4:[address] [facility] Calcium 7.9(L) 8.5 - 10.5 mg/dL 07/30/2024 4:[address] [facility] Est Glomerular Filtration Rate - Male 79 mL/min/1. 73 m?? 07/30/2024 4:[address] [facility] Comment: [...] MD CHEMISTRY ORDERABL ES Performing Organization Address City/State/[facility] Co de Phone Number [facility] [place] [address] * ECHO LMTD W CONTRAST W LMTD SPEC DOPP COLOR DOPP (07/30/2024 11:42 AM EST) Anatomical Region Laterality Modality Cardiac Other 07/30/2024 10:2 2 AM EST Narrative 07/30/2024 12:34 PM EST [address] [place] [address] ? Echocardiogram Report Name: KOREY MONTOYA ? Study Date: 07/30/2024 10:22 AMBP: 124/66 mmHg : 1950 ? Height: 168 cm ? Account: [id number] Age: 74 yrs ? Weight: 65 kg Gender: Male ?BSA: 1.7 m2 Ordering Physician: Aubree Silverio MD Referring Physician: CHAPARRO FERRERA Performed By: OMERO Millan Reason For Study: ST elevation myocardial infarction involving left anterior descending (LAD) coronary artery Interpreting Fellow: Ivan Hernandez. Exam Location: [facility]. Interpretation Summary Left ventricle is severely [...] Compared to the overnight study by the solutions market consultant fellow the impella position is stable. 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 Procedure Limited - 31029. Image enhancement Definity was used for both [...] Note Kathleen Banda MD - 07/30/2024 [address] [place] [id number] Echocardiogram Report Name: KOREY MONTOYA Kyrie Study Date: 410:22 AMBP: 124/66 mmHg : 1950 Height: 168 cm Account: [id number] Age: 74 yrs Weight: 65 kg Gender: Male BSA: 1.7 m2 Ordering Physician: Aubree Silverio MD Referring Physician: CHAPARRO FERRERA Performed By: OMERO Millan Reason For Study: ST elevation myocardial infarction involving leftanterior descending (LAD) coronary artery Interpreting Fellow: Ivan Hernandez. Exam Location: [facility]. Interpretation Summary Left ventricle is severely [...] Compared to the overnight study by the solutions market consultant fellow the impella positionis stable. The global left ventricular systolic function has improvedpredominantly via recruitment outside the LAD territory which remains akinetic. Procedure Limited - 73335. Image enhancement Definity was used for both [...] CARE TEST ORDERABLES [facility] [place] [address] * (ABNORMAL) Blood Gas, Arterial POC (07/30/2024 8:16 AM EST) Pathologist [facility] pH, Arterial 7.44 7.35 - 7.45 07/30/2024 [...] CARE TEST ORDERABLES [facility] [place] [address] * (ABNORMAL) Troponin - Single (07/30/2024 8:09 AM EST) Troponin-T, High Sensitivity 8,651(H) <=22 ng/L 07/30/2024 9:06 AM [facility] Comment: This patient's troponin T [...] [facility] Test Catalog Troponin - [email or web address]/[email or web address]/[email or web address] Reference: Fourth [place] Definition of Myocardial Infarction. Journal of the [employer] 2018;72:2297-5543 Blood VENOUS BLOOD SPECIMEN / Unknown Venipuncture / Unknown 07/30/2024 8:09 AM EST 07/30/2024 8:26 AM EST Aubree Silverio MD CHEMISTRY ORDERABL ES Performing Organization Address [facility] Co de Phone Number [facility] [place] [address] * POC, GLUCOSE (07/30/2024 7:40 AM EST) Pathologist [facility] Glucometer, POC 111 65 - 199 mg/dL 07/30/2024 7:[address] [facility] Comment:Supplemental ranges: <140 mg/dL before meals <180 mg/dL all other times of the day. Blood CAPILLARY BLOOD / Unknown 07/30/2024 7:40 AM EST 07/30/2024 7:40 AM EST Aubree Silverio MD POINT OF CARE TEST ORDERABLES Performing Organization Address [facility] Co de Phone Number [facility] [place] [address] * (ABNORMAL) CBC (with Diff) (07/30/2024 2:11 [...] 6.10 x10(3)/mc L 07/30/2024 2:[address] [facility] Lymph % 5.1 % 07/30/2024 2:33 AM [facility] Lymph Absolute 0.57(L) 0.90 - 3.20 x10(3)/mc L 07/30/2024 2:[address] [facility] Monocyte % 5.4 % 07/30/2024 2:[address] [facility] Monocyte Absolute 0.61 0.30 - 0.90 x10(3)/mc L 07/30/2024 2:[address] [facility] Eos % 0.0 % 07/30/2024 [...] HEMATOLOGY ORDERABLE S [facility] [place] [address] * Magnesium (07/30/2024 2:11 AM EST) Magnesium 1.01 0.69 - 1.07 mMol/L 07/30/2024 2:51 AM [facility] Blood VENOUS BLOOD SPECIMEN / Unknown Venipuncture / Unknown 07/30/2024 2:11 AM EST 07/30/2024 2:22 AM EST Bridgette Stauffer MD CHEMISTRY ORDERABLES [facility] [place] [address] * (ABNORMAL) Basic Metabolic Panel (07/30/2024 2:11 [...] Stauffer MD CHEMISTRY ORDERABLES Performing Organization Address City/State/[facility] Co ks Phone Number [facility] [address] * (ABNORMAL) Cooximetry, POC (07/30/2024 1:00 AM [...] CARE TEST ORDERABLES [facility] [place] [address] * (ABNORMAL) Blood Gas, Arterial POC (07/30/2024 [...] - 107 mmol/L 07/30/2024 12:[address] [facility] Lactate, Arterial 1.3 0.5 - 2.2 mmol/L 07/30/2024 12:[address] [facility] Flow Rate 2.0 L/min 07/30/2024 [...] OF CARE TEST ORDERABLES Performing Organization Address City/State/[facility] Co de Phone Number [facility] [place] [address] * (ABNORMAL) Troponin - Single (07/29/2024 10:31 [...] [facility] Test Catalog Troponin - https://one-.testcatalog.org/catalogs/565/files/36309 Reference: Fourth [place] Definition of Myocardial Infarction. Journal of the [employer] 2018;72:2005-8149 Blood VENOUS BLOOD SPECIMEN / Unknown Venipuncture / Unknown 07/29/2024 10:31 PM EST 07/29/2024 10:36 PM EST Yrn Velazquez MD CHEMISTRY ORDERABL ES Performing Organization Address [facility]/ZIP Co de Phone Number [facility] [place] [address] * Potassium (07/29/2024 8:11 PM EST) Potassium 4.1 3.5 - 5.0 mMol/L 07/29/2024 8:[address] [facility] Blood VENOUS BLOOD SPECIMEN / Unknown Venipuncture / Unknown 07/29/2024 8:11 PM EST 07/29/2024 8:16 PM EST Aubree Silverio MD CHEMISTRY ORDERABL ES Performing Organization Address City/[facility]/ZIP Co de Phone Number [facility] [place] [address] * (ABNORMAL) Troponin - Single (07/29/2024 8:11 [...] [facility] Laboratory Test Catalog Troponin - https://one-.testcatalog.org/catalogs/565/files/52967 Reference: Fourth [place] Definition of Myocardial Infarction. Journal of the [employer] 2018;72:4441-2677 Blood VENOUS BLOOD SPECIMEN / Unknown Venipuncture / Unknown 07/29/2024 8:11 PM EST 07/29/2024 8:16 PM EST Aubree Silverio MD CHEMISTRY ORDERABL ES Performing Organization Address City/[facility]/ZIP Co de Phone Number [facility] [place] [address] * (ABNORMAL) Phosphorus (07/29/2024 8:11 PM EST) Phosphorus 2.1(L) 2.5 - 4.5 mg/dL 07/29/2024 8:[address] [facility] Blood VENOUS BLOOD SPECIMEN / Unknown Venipuncture / Unknown 07/29/2024 8:11 PM EST 07/29/2024 8:16 PM EST Aubree Silverio MD CHEMISTRY ORDERABL ES [facility] [place] [address] * POC, GLUCOSE (07/29/2024 8:09 PM EST) Glucometer, POC 142 65 - 199 mg/dL 07/29/2024 8:[address] [facility] Comment:Supplemental ranges: <140 mg/dL before meals <180 mg/dL all other times of the day. Blood CAPILLARY BLOOD / Unknown 07/29/2024 8:09 PM EST 07/29/2024 8:09 PM EST Aubree Silverio MD POINT OF CARE TEST ORDERABLES Performing Organization Address City/[facility]/ZIP Co de Phone Number [facility] [place] [address] * ABORH RECHECK (07/29/2024 6:43 PM EST) Pathologist [facility] ABORH Recheck AB POSITIVE 07/29/2024 10:13 PM EST [facility] Blood VENOUS BLOOD SPECIMEN / Unknown Venipuncture / Unknown 07/29/2024 6:43 PM EST 07/29/2024 7:15 PM EST Aubree Silverio MD BLOOD BANK LAB ORD ERABLES Performing Organization Address City/[facility] Co de Phone Number [facility] [place] [address] * POC, GLUCOSE (07/29/2024 5:57 PM EST) [facility] Glucometer, POC 166 65 - 199 mg/dL 07/29/2024 5:[address] [facility] Comment:Supplemental ranges: <140 mg/dL before meals <180 mg/dL all other times of the day. Blood CAPILLARY BLOOD / Unknown 07/29/2024 5:57 PM EST 07/29/2024 5:57 PM EST Aubree Silverio MD POINT OF CARE TEST ORDERABLES Performing Organization Address City/[facility]/ZIP Co de Phone Number [facility] [place] [address] * Type and screen ([facility]P/MAGALIE) (07/29/2024 5:56 PM EST) Pathologist [facility] ABORH Type AB POSITIVE 07/29/2024 9:44 PM EST [facility] PATIENT HISTORY Not Found 07/29/2024 9:44 PM EST [facility] Expires at [id number] on: 08/01/2024 07/29/2024 9:44 PM EST [facility] ANTIBODY SCREEN AUTOMATED Negative 07/29/2024 9:44 PM EST [facility] T&S only valid at [facility] 07/29/2024 9:44 PM EST [facility] Blood VENOUS BLOOD SPECIMEN / Unknown Venipuncture / Unknown 07/29/2024 5:56 PM EST 07/29/2024 6:07 PM EST Narrative [facility] - 07/29/2024 9:44 PM EST This Type and Screen result is only valid at the [facility] Aubree Silverio MD BLOOD BANK LAB ORD ERABLES [facility] [place] [address] * (ABNORMAL) Troponin - Single (07/29/2024 4:52 [...] [facility] Hospital Laboratory Test Catalog Troponin - https://[facility]-.testcatalog.org/catalogs/565/files/77850 Reference: Fourth [place] Definition of Myocardial Infarction. Journal of the [employer] 2018;72:7537-8640 Blood VENOUS BLOOD SPECIMEN / Unknown Venipuncture / Unknown 07/29/2024 4:52 PM EST 07/29/2024 4:57 PM EST Aubree Silverio MD CHEMISTRY ORDERABL ES Performing Organization Address City/[facility]/ZIP Co de Phone Number [facility] [place] [address] * EKG 12 Lead (07/29/2024 4:21 PM EST) Ventricular rate 72 BPM MUSE SYSTEM Atrial Rate 72 BPM MUSE SYSTEM P-R Interval 168 ms MUSE SYSTEM QRS Duration 82 ms MUSE SYSTEM Q-T Interval 392 ms MUSE SYSTEM QTC Calculated (Bezet) 429 ms MUSE SYSTEM Calculated P [place] 71 degrees MUSE SYSTEM Calculated R [place] 77 degrees MUSE SYSTEM Calculated T [place] 28 degrees MUSE SYSTEM INTERPRETATION Sinus rhythm [...] Silverio MD ECG ORDERABLES Performing Organization Address City/[facility]/ZIP Co de Phone Number MUSE [...] - 1.33 mmol/L 07/29/2024 4:[address] [facility] Glucose, Arterial 181 65 - 199 mg/dL 07/29/2024 4:[address] [facility] Comment:Glucose Concentratio n >=200 mg/dL plus symptoms is consistent with Diabetes Mellitus. Blood ARTERIAL BLOOD / Unknown 07/29/2024 4:21 PM EST 07/29/2024 4:22 PM EST Aubree Silverio MD POINT OF CARE TEST ORDERABLES [facility] [place] [address] * POC, GLUCOSE (07/29/2024 4:19 PM EST) Glucometer, POC 185 65 - 199 mg/dL 07/29/2024 4:[address] [facility] Comment:Supplemental ranges: <140 mg/dL before meals <180 mg/dL all other times of the day. Blood CAPILLARY BLOOD / Unknown 07/29/2024 4:19 PM EST 07/29/2024 4:19 PM EST Aubree Silverio MD POINT OF CARE TEST ORDERABLES Performing Organization Address [facility]/ZIP Co de Phone Number [facility] [place] [address] * Blood culture (07/29/2024 4:08 PM EST) Blood Culture No growth at 120 hours 08/03/2024 5:[address] [facility] Blood VENOUS BLOOD SPECIMEN / Unknown Venipuncture / Unknown 07/29/2024 4:08 PM EST 07/29/2024 4:15 PM EST Aubree Silverio MD MICROBIOLOGY - BLO OD ORDERABLES Performing Organization Address City/[facility]/ZIP Co de Phone Number [facility] [place] [address] * Blood culture (07/29/2024 4:08 PM EST) Blood Culture No growth at 120 hours 08/03/2024 5:[address] [facility] Blood VENOUS BLOOD SPECIMEN / Unknown Venipuncture / Unknown 07/29/2024 4:08 PM EST 07/29/2024 4:26 PM EST Aubree Silverio MD MICROBIOLOGY - BLO OD ORDERABLES [facility] [address] * XR Chest One View (07/29/2024 2:30 PM EST) Pathologist [employer] WORKSTATION ID [id number] RAD Anatomical Region Laterality Modality Chest N/A [...] have questions please contact the health care companion that requested your imaging first. ? Narrative [...] who have questions please contactthe health care companion that requested your imaging first. Electronically signed by: Chris Candelaria MD, [facility]([phone]), at 07/29/2024 3:21 PM Vahe Marvin MD IMG DX ORDERABLES * (ABNORMAL) APTT (07/29/2024 2:03 PM EST) Partial Thromboplastin Time >160([facility]) 25 - 37 sec 07/29/2024 2:[address] [facility] Blood VENOUS BLOOD SPECIMEN / Unknown Venipuncture / Unknown 07/29/2024 2:03 PM EST 07/29/2024 2:13 PM EST Vahe Marvin MD HEMATOLOGY ORDERABLE S [facility] [place] [address] * (ABNORMAL) Prothrombin Time (07/29/2024 2:03 PM [...] MD HEMATOLOGY ORDERABLE S Performing Organization Address City/[facility]/ZIP Co de Phone Number [facility] [place] [address] * CRP, acute inflammation (07/29/2024 2:03 PM EST) [facility] C-Reactive Protein <3.0 <=4.9 mg/L 07/29/2024 2:[address] [facility] Blood VENOUS BLOOD SPECIMEN / Unknown Venipuncture / Unknown 07/29/2024 2:03 PM EST 07/29/2024 2:14 PM EST Vahe Marvin MD CHEMISTRY ORDERABLES [facility] [place] [address] * Lipid Panel (Reflex Direct LDL) (07/29/2024 2:03 PM EST) Pathologist [facility] Cholesterol, Total 133 mg/dL 07/29/2024 2:52 [...] EST 07/29/2024 2:14 PM EST [facility] - 07/29/2024 2:52 PM [...] Marvin MD CHEMISTRY ORDERABLES Performing Organization Address City/[facility]/ZIP Co de Phone Number [facility] [place] [address] * TSH Teller (07/29/2024 2:03 PM EST) Thyroid Stimulating Hormone 0.70 0.27 - 4.20 mcIU/mL 07/29/2024 2:[address] [facility] Blood VENOUS BLOOD SPECIMEN / Unknown Venipuncture / Unknown 07/29/2024 2:03 PM EST 07/29/2024 2:14 PM EST Vahe Marvin MD CHEMISTRY ORDERABLES Performing Organization Address City/[facility]/ZIP Co de Phone Number [facility] [place] [address] * Hemoglobin A1c (07/29/2024 2:03 PM EST) [facility] Hemoglobin A1c 5.3 4.3 - 5.6 [...] red blood cell turnover may not be membership sales representative of glycemic control. Reference Interval: [...] Narrative [facility] - 07/29/2024 2:41 PM EST Estimated average glucose (eAG) is calculated from the equation described in: Quinten DM, Rikki J, Reno R, et al. ??Translating the A1C assay into estimated average glucose values. ??Diabetes Care 2008:31(8):8049-9950. Additional resources are available on the ADA website (diabetes.org). Vahe Marvin MD CHEMISTRY ORDERABLES Performing Organization Address City/[facility]/ZIP Co de Phone Number [facility] [place] [address] * (ABNORMAL) CBC (with Diff) (07/29/2024 2:03 PM EST) [facility] White Blood Cell 19.50(H) 4.00 - 9.50 x10(3)/mc L 07/29/2024 2:18 PM [facility] Red Blood Cell 4.81 4.58 [...] 6.10 x10(3)/mc L 07/29/2024 2:[address] [facility] Lymph % 2.7 % 07/29/2024 2:[address] [facility] Lymph Absolute 0.52(L) 0.90 - [...] - 0.04 x10(3)/mc L 07/29/2024 2:18 PM [facility] Blood VENOUS BLOOD SPECIMEN / Unknown Venipuncture / Unknown 07/29/2024 2:03 PM EST 07/29/2024 2:13 PM EST Vahe Marvin MD HEMATOLOGY ORDERABLE S [facility] [place] [address] * Phosphorus (07/29/2024 2:03 PM EST) Phosphorus 2.5 2.5 - 4.5 mg/dL 07/29/2024 2:52 PM [facility] Blood VENOUS BLOOD SPECIMEN / Unknown Venipuncture / Unknown 07/29/2024 2:03 PM EST 07/29/2024 2:14 PM EST Vahe Marvin MD CHEMISTRY ORDERABLES Performing Organization Address [facility] Co de Phone Number [facility] [place] [address] * Magnesium (07/29/2024 2:03 PM EST) Magnesium 0.70 0.69 - 1.07 mMol/L 07/29/2024 2:[address] [facility] Blood VENOUS BLOOD SPECIMEN / Unknown Venipuncture / Unknown 07/29/2024 2:03 PM EST 07/29/2024 2:14 PM EST Vahe Marvin MD CHEMISTRY ORDERABLES Performing Organization Address [facility] Co de Phone Number [facility] [place] [address] * (ABNORMAL) Comprehensive metabolic panel (07/29/2024 2:03 [...] MD CHEMISTRY ORDERABLES [facility] [place] [address] * (ABNORMAL) Troponin - Single (07/29/2024 2:03 [...] [facility] Hospital Laboratory Test Catalog Troponin - https://[facility]-.testcatalog.org/catalogs/565/files/18715 Reference: Fourth [place] Definition of Myocardial Infarction. Journal of the [place] [employer] 2018;72:0727-4589 Blood VENOUS BLOOD SPECIMEN / Unknown Venipuncture / Unknown 07/29/2024 2:03 PM EST 07/29/2024 2:14 PM EST Vahe Marvin MD CHEMISTRY ORDERABLES [facility] [place] [address] * (ABNORMAL) Blood Gas, Venous POC (07/29/2024 [...] - 2.2 mmol/L 07/29/2024 2:[address] [facility] Ionized Calcium, Venous 1.11(L) 1.15 - 1.33 mmol/L 07/29/2024 2:[address] [facility] Blood VENOUS BLOOD SPECIMEN / Unknown 07/29/2024 2:01 PM EST 07/29/2024 2:02 PM EST Vahe Marvin MD POINT OF CARE TEST O RDERABLES Performing Organization Address [facility]/State/[facility] Co de Phone Number [facility] [place] [address] * CARDIAC CATHETERIZATION (07/29/2024 1:20 PM EST) Anatomical Region Laterality Modality Other Narrative 07/29/2024 2:02 PM EST ?[facility] ? Cardiac Catheterization/Intervention Report ? Patient Name: Korey Montoya Kyrie. ? Procedure Date: 07/29/2024 ? A #: [id number] ? Primary Physician: Vahe Marvin ? Case #: [id number] ? File Name: [id number] ? Catheterization Order Number: [id number] ? [facility] ?Operator Assistant I [facility] ? Final Report [place], [place] ? Patient Name: ? Korey Mittal. Jan ?ID#: ?[id number] ? : ?1950 ? Procedure Date: ? [...] procedure was Emergent. The indication for ?the research lab assistant visit is ACS less than [...] 3.5 guiding catheter and a 3.5 Fr [facility] [place] [address] ??20 Mhz using ?Manual pullback. ??Imaging [...] ? A premounted 3.00 x 22 mm [place] Cherry (LOW) was deployed ? with a maximum [...] atmospheres. ??A premounted 3.00 x 08 mm [place] Cherry (LOW) ? was deployed with a maximum [...] dose administered prior to arrival in the research lab assistant. ?Recommended anti-platelet/anti-thrombotic regimen: ?Start aspirin 81 mg daily now and continue for 12 months then stop. ?Start clopidogrel 75 mg daily now and continue for indefinitely. ?These recommendations are made at the time of the intervention. Patient ?and provider preferences or a changing clinical situation may require ?modification of this regimen. Consult [facility] for ?questions. ?The 1 year [...] able ?to start weaning his inotropes/vasopressors. A [place] Colette catheter was ?placed demonstrating improvement in his hemodynamics and the impella site ?was perclosed and hemostatic gauze was applied with excellent result. ?WIll transfer to the [facility] for further management. ?The attending physician was present for the entire procedure. ?Dr. Vahe Marvin M.D. was present during the moderate sedation ?intraservice time as documented by the sedation nurse. ??Case time = 01:26. ?Dr. Vahe Marvin M.D. performed the coronary angiography, left heart ?catheterization, IVUS # coronary, stent insertion-coronary, oximetry, ABG, ?transthoracic echo , ventricular assist device insertion, right heart ?catheterization, [place] (flow directed cath) insertion, access site ?angiography, vascular ultrasound, venous line / sheath insert and vascular ?closure device. ? Vahe S Shavonne, M.D. ? Electronically Signed by: Vahe S Shavonne, M.D. ? Report Finalized: 07/29/2024 ??13:55 ? Report Last Ammended: 09/20/2024 ??15:21 ? Procedure Note Vahe Marvin MD - 09/20/2024 [facility] Cardiac Catheterization/Intervention Report Patient Name: Korey Montoya Procedure Date: 07/29/2024 A #: [id number] Primary Physician: Vahe Marvin Case #: [id number] File Name: [id number] Catheterization Order Number: [id number] [facility] FinalReport [place], [place] Patient Name: Korey Montoya ID#:[id number] :1950 Procedure Date: July 29, 2024 Case [...] designated as ASA Class IV. The [facility] clinical frailtyscale is 4: Vulnerable. Diagnostic Tests: Electrocardiography: EKG was assessed by ECG. EKG was Abnormal. EKG showed STDeviation >= 0.5 mm. Medications Prior to Procedure: Angiotensin II Receptor Elvis and Statin. Indications for Diagnostic Cath: The priority of the diagnostic procedure was Emergent. Theindication for the research lab assistant visit is ACS less than [...] 3.5 guiding catheter and a 3.[address] 20 Mhzusing Manual pullback. Imaging was [...] The priority for the procedure was Emergent.The [facility] indication for the procedure was [...] The lesion was predilated with a 2.00mm [id number] MM balloon with a maximum inflation pressure of 12atmospheres. A premounted 3.00 x 22 mm [place] Cherry (LOW) wasdeployed with a maximum inflation pressure [...] atmospheres. A premounted 3.00 x 08 mm [place] Cherry(LOW) was deployed with a maximum inflation pressure [...] dose administered prior to arrival in the research lab assistant. Recommended anti-platelet/anti-thrombotic regimen: Start aspirin 81 mg daily now and continue for 12 months then stop. Start clopidogrel 75 mg daily now and continue for indefinitely. These recommendations are made at the time of the intervention.Patient and provider preferences or a changing clinical situation mayrequire modification of this regimen. Consult [facility] Cardiologyfor questions. The 1 year bleeding [...] wereable to start weaning his inotropes/vasopressors. A [place] Colette catheterwas placed demonstrating improvement in his [...] ventricular assist device insertion, right heart catheterization, [place] (flow directed cath) insertion, access site angiography, vascular ultrasound, venous line / sheath insert andvascular closure device. Vahe Marvin M.D. Electronically Signed by: Vahe Marvin M.D. Report Finalized: 07/29/2024 13:55 Report Last Ammended: 09/20/2024 15:21 Vahe Marvin MD CARDIAC CATH ORDERAB LES * (ABNORMAL) BLOOD GAS, POC (07/29/2024 12:46 PM EST) Sodium, POC 139 135 - 145 mmol/L 07/30/2024 7:[address] [facility] Potassium, POC 3.4(L) 3.5 - 5.0 mmol/L 07/30/2024 7:[address] [facility] pH, POC 7.33(L) 7.35 - 7.45 07/30/2024 7:[address] [facility] Ionized Calcium, POC 1.13(L) 1.15 [...] TEST O RDERABLES [facility] [place] [address] * (ABNORMAL) BLOOD GAS, POC (07/29/2024 12:12 [...] TEST O RDERABLES [facility] [place] [address] documented in this encounter Visit Diagnoses Not [...] Routine documented in this encounter Care Teams Rabbit Dresser Relationship Specialty Start Date End Date Yoel Artis APRN [address] [place] [address] PCP - General Internal Medicine 11/18/22 07/29/24 documented as of this encounter
--- OUTSIDE RECORDS SUMMARY | 2024-10-19 10:02 | XMS_ITS | Encounter Summary ---
Author Organization [facility] [place] [address] Care Team Providers Care Surgical Orderly Name Role Phone Unknown Primary Care Provider Unavailabl e Encounter Details Date Type Department Care Team (Late st Contact Info) Description 01/13/2019 9:05 PM EDT Ancillary Procedure Radiology Library at [facility] [place] [phone] Sunny Aviles MD [facility] [place] [address] Social History Tobacco Use Types Packs/Day Years [...] 9:30 AM EST Appointment Non-[place] [address] Mushtaq Murphy APRN 10/31/2024 11:00 AM EST Office Visit Cardiology at [address] [address] Mushtaq Murphy, FREDRICK documented as [...] FILM LIBRARY ORDERABLES Performing Organization Address City/State/[facility] Co de Phone Number [place], [place] documented in this encounter Visit Diagnoses Not on filedocumented in this encounter Care Teams Surgical Orderly Relationship Specialty Start Date End Date Unknown None PCP - General 08/04/10 01/16/19 documented as of this encounter
--- OUTSIDE RECORDS SUMMARY | 2024-10-19 10:02 | XMS_ITS | Encounter Summary ---
Author Organization [place] [address] Care Team Providers Care Journeyman Level Acoustic Analyst Name Role Phone oYel Artis Ute ALCALA Primary Care Provider [phone] Encounter Details Date Type Department Care Team (Late st Contact Info) Description 07/29/2024 Interpretation Only [facility] [address] [place] [phone] Chaparro Montana MD [address] [place] [address] Social History Tobacco Use Types Packs/Day Years Used Date Smoking Tobacco: Former Cigarettes Smokeless Tobacco: Never Alcohol Use Standard Drinks/Week Comments Not Currently 0 (1 standard drink = 0.6 oz pur e alcohol) [facility] Utilities Answer Date Recorded In the past 12 months has [employer], gas, oil, or water [employer] threatened to shut off services in your [...] 9:30 AM EST Appointment [place] [address] Mushtaq Murphy, SCIENTIST 10/31/2024 11:00 AM EST Office Visit Cardiology at [address] [address] Mushtaq Murphy, SCIENTIST documented as of this encounter Procedures Procedure Name Priority Date/Time Associated Diagnosis Comments XR CHEST ONE VIEW STAT 07/29/2024 10: 50 AM EST documented in this encounter Results * XR Chest One View (07/29/2024 10:50 AM EST) PT CLASS E RAD ADMITDTTM [id number] RAD PT RAD MD INFO [id number]^Jordy figueroa^Chaparro RAD EXAM DESC XCXR1^XR Chest 1 [...] who have questions please contact the health interior plant caretaker that requested your imaging first. ? [...] patients who have questions please contactthe health interior plant caretaker that requested your imaging first. Chaparro Montana MD IMG DX ORDERABLES documented in this encounter Visit Diagnoses Not on filedocumented in this encounter Care Teams Journeyman Level Acoustic Analyst Relationship Specialty Start Date End Date Yoel Artis APRN [address] [place] [address] PCP - General Internal Medicine 11/18/22 07/29/24 documented as of this encounter
--- OUTSIDE RECORDS SUMMARY | 2024-10-19 10:02 | XMS_ITS | Encounter Summary ---
[place] [address] Care Team Providers Care Research Dairy Farm Supervisor Name Role Phone Yoel Artis APRN Primary Care Provider Encounter Details Date Type Department Care Team (Late st Contact Info) Description 03/01/2023 9:30 AM EDT - 03/01/2023 11:59 PM EDT Hospital Encounter [facility] [address] [place] [address] Yoel Artis, BUSINESS ATTORNEY [address] [place] [address] Discharge Disposition: Home Social History Tobacco Use [...] 9:30 AM EST Appointment [place] [address] Mushtaq Murphy, FREDRICK 10/31/2024 11:00 AM EST Office Visit Cardiology at [address] [address] Mushtaq Murphy APRN documented as of this encounter Procedures Procedure Name Priority Date/Time Associated Diagnosis Comments PSA (ULTRASENSITIVE) Routine 03/01/2023 9:38 AM EDT documented in this encounter Results * (ABNORMAL) PSA (Ultrasensitive) (03/01/2023 9:38 AM EDT) Prostate Specific Antigen (Ultrasensitive) 5.09(H) 0.00 - 4.00 ng/mL [facility] Comment: PLEASE NOTE: The [...] In Lab Yoel Artis APRN CHEMISTRY ORDERABLES [facility] [place] [address] documented in this encounter Visit Diagnoses Not on filedocumented in this encounter Care Teams Research Dairy Farm Supervisor Relationship Specialty Start Date End Date Yoel Artis APRN [address] [place] [address] PCP - General Internal Medicine 11/18/22 07/29/24 documented as of this encounter
--- OUTSIDE RECORDS SUMMARY | 2024-10-19 10:02 | XMS_ITS | Encounter Summary ---
[place] [address] Care Team Providers Care Hydraulic Jack Operator Name Role Phone Anibal Mtz MD Primary Care Provider [phone] Encounter Details Date Type Department Care Team (Late st Contact Info) Description 01/18/2019 3:00 PM EDT Interpretation Only Cardiology at [address] [phone] Alberto Powell Jr., MD Dizziness Social History [...] 9:30 AM EST Appointment Non-Invasive [place] [address] Mushtaq Murphy APRN 10/31/2024 11:00 AM EST Office Visit Cardiology at [address] [address] Mushtaq Murphy, FREDRICK documented as [...] giddiness documented in this encounter Care Teams Hydraulic Jack Operator Relationship Specialty Start Date End Date Anibal Mtz MD [address] [place] [address] PCP - General Family Medicine 01/17/19 11/17/22 documented as of this encounter
--- OUTSIDE RECORDS SUMMARY | 2024-10-19 10:02 | XMS_ITS | Encounter Summary ---
[place] [address] Care Team Providers Care Grounds Cleaner Name Role Phone Yoel Artis FREDRICK Primary Care Provider [phone] Encounter Details Date Type Department Care Team (Late st Contact Info) Description 01/16/2024 Interpretation Only [facility] [address] [place] [address] Chaparro Montana MD [address] [place] [address] Social History Tobacco Use Types Packs/Day Years [...] 9:30 AM EST Appointment [place] [address] Mushtaq Murphy APRN 10/31/2024 11:00 AM EST Office Visit Cardiology at [address] [address] Mushtaq Murphy, ETHNOARCHAEOLOGY PROFESSOR documented as of this encounter Procedures Procedure Name Priority Date/Time Associated Diagnosis Comments XR CHEST ONE VIEW STAT 01/16/2024 4:0 4 PM EDT documented in this encounter Results * XR Chest One View (01/16/2024 4:04 PM EDT) PT CLASS E RAD ADMITDTTM [id number] RAD PT RAD INFO [id number]^Haniss henry^Chaparro RAD EXAM DESC XCXR1^XR Chest 1 View^RIS [facility] ID [id number] RAD Anatomical Region Laterality Modality Chest N/A [...] have questions please contact the health healthcare advisory services manager that requested your imaging first. ? [...] who have questions please contactthe health healthcare advisory services manager that requested your imaging first. Electronically signed by: Alexey Winslow MD, [facility]([phone]), at 01/16/2024 4:08 PM Chaparro Montana MD IMG DX ORDERABLES documented in this encounter Visit Diagnoses Not on filedocumented in this encounter Care Teams Grounds Cleaner Relationship Specialty Start Date End Date Yoel Artis APRN [address] [place] [address] PCP - General Internal Medicine 11/18/22 07/29/24 documented as of this encounter
--- OUTSIDE RECORDS SUMMARY | 2024-10-19 10:02 | XMS_ITS | Encounter Summary ---
Author Organization [facility] Address [facility] [place] [address] Care Team Providers Care Pin Drafter Name Role Phone Yoel Artis APRN Primary Care Provider [phone] Encounter Details Date Type Department Care Team (Latest Contact Info) Description 11/30/2023 8:00 AM EDT TH Visit (TeleHealth) [place] [address] Yoel Dangelo APRN [facility] [place] [address] Proctalgia fugax; Constipation, unspecified constipation type Social [...] Bath: Sitz bath's are available in most [facility]. They work by improving blood flow and [...] Patients and Primary Care Providers [facility] Gastrointestinal Motility[facility] Esophageal, [facility] Swallow[facility] What are functional bowel disorders? These are the most common type of gastrointestinal disorders in the [facility] The most common functional bowel [...] what is the impact? 15-20% of general [place] population has IBS or FD or both 2nd most common cause for lost work days (after common cold) in [place] Estimated $30 billion dollar cost to [place] economy per year These disorders can have [...] with immediate onset of symptoms after infection); shelter symptoms are expected in most patients however [...] to you primary care provider and/or local vat house supervisor and share this document. Treatment of [...] - this approach benefits most patients OTC (hpen-pmc-zdrlebe) medications can be used for ongoing bothersome [...] All-Bran psyllium buds, Metamucil, Konsyl, bulk psyllium ([employer] stores and [employer] stores) Specifically we recommend starting Metamucil or [...] but convincing medical evidence is still lacking Ndse-twx-ehfuzau supplements including probiotics are not typically evaluated [...] to decrease antibiotic-associated diarrhea and antibiotic-related infections Zqwn-dza-Tscgxes Medications for Functional Gut Disorders Based on [...] (GERD) Often a combination of anti-nausea medications (mvcu-bgq-dxxhhgd or prescription) works better thanhigh doses of [...] for misuse/misinterpretation of this information Patient Resources [place] [employer] https://www.gastro.org/practice-guidance/ai-gelfxow-ymxbuw/ topic/mdbqvkmht-axgtu-yvglwsit-ibs Badgut.org https://badgut.org/information-centre/l-w-hfbvfttxh-topics/ibs/ AboutIBS.org https://www.aboutibs.org/ Uptodate.com https://www.uptodate.com/contents/luehmdmdk-hwkdc-pqxtnaww-kacoos-gsb-wpyigs documented in this encounter Progress Notes * [...] Take by mouth. nitroGLYcerin (NITROLINGUAL) 400 mcg/spray [place], Non-Aerosol 1 spray to anus for proctalgia fugax as needed, not to exceed once daily 12 g 0 No facility-administered medications prior to visit. Allergies: has No Known Allergies. Past Medical History: has a past medical history of ADHD, HLD (hyperlipidemia), HTN (hypertension),and Tremor. Past Surgical History: has a past surgical history that includes Hand surgery and Colonoscopy, Antonieta Pfeiffer ([id number]) (N/A, 08/30/2023). Family History: family history is [...] for re-evaluation. The patient was located in [place] at the time of their visit. Yoel Dangelo [place] [facility] [place] [id number] documented in this encounter Miscellaneous Notes * Addendum Note - Yoel Dangelo APRN - 11/30/2023 8:00 AM EDTAddended by: YOEL DANGELO on: 11/30/2023 08:46 AM Modules accepted: Level of Service documented in this encounter Plan of Treatment Upcoming Encounters Date Type Department Care Team (Late st Contact Info) Description 10/31/2024 9:30 AM EST Appointment Non[place] [address] Mushtaq Murphy APRN 10/31/2024 11:00 AM EST Office Visit Cardiology at [address] [address] Mushtaq Murphy APRN documented as of this encounter Visit Diagnoses Diagnosis Proctalgia fugax Anal spasm Constipation, unspecified constipation type documented in this encounter Care Teams Pin Drafter Relationship Specialty Start Date End Date Yoel Artis APRN [address] [place] [address] PCP - General Internal Medicine 11/18/22 07/29/24 documented as of this encounter
--- OUTSIDE RECORDS SUMMARY | 2024-10-19 10:02 | XMS_ITS | Encounter Summary ---
Author Organization [facility] [address] Care Team Providers Care Business Banking Officer Name Role Phone Yoel Artis Ute ALCALA Primary Care Provider Encounter Details Date Type Department Care Team (Late st Contact Info) Description 01/16/2024 5:46 PM EDT - 01/16/2024 11:59 PM EDT Hospital Encounter [facility] [address] [place] [address] Chaparro Montana MD [address] [place] [address] Discharge Disposition: Home Social History Tobacco Use [...] evening. 04/17/2023 08/04/2024 nitroGLYcerin (NITROLINGUAL) 400 mcg/spray [place], Non-AerosolIndications:P roctalgia fugax,Fecal smearing,Constipation, unspecified constipation type 1 spray to anus for proctalgia fugax as needed, not to exceed once daily 12 g 06/01/2023 08/04/2024 documented as of this encounter Plan of Treatment Upcoming Encounters Date Type Department Care Team (Late st Contact Info) Description 10/31/2024 9:30 AM EST Appointment Non[place] [address] Mushtaq Murphy, FREDRICK 10/31/2024 11:00 AM EST Office Visit Cardiology at [address] [address] Mushtaq Murphy, FREDRICK documented as of this encounter Procedures Procedure Name Priority Date/Time Associated Diagnosis Comments URINE CULTURE Routine 01/16/2024 4:00 PM EDT documented in this encounter Results * Urine culture (01/16/2024 4:00 PM EDT) Urine Culture No growth (Less than 1,000 cfu/ml). [facility] Urine 01/16/2024 4:00 PM EDT 01/16/2024 10:36 PM EDT Narrative Resulting Agency Comment Spec In Lab Chaparro Montana MD MICROBIOLOGY - [facility] ORDERABLES [facility] [place] [address] documented in this encounter Visit Diagnoses Not on filedocumented in this encounter Care Teams Business Banking Officer Relationship Specialty Start Date End Date Yoel Artis APRN [address] [place] [address] PCP - General Internal Medicine 11/18/22 07/29/24 documented as of this encounter
== END 2024-11-09 23:59 | disposition home or self-care (01) ==
LOC: CR 10:11
PROVIDERS: PCP Nurse Practitioner Primary Care; Visit Provider Internal Medicine Cardiovascular Disease
DX: I21.09 ST elevation (STEMI) myocardial infarction involving other coronary artery of anterior wall (principal); Z95.5 Presence of coronary angioplasty implant and graft; Z51.89 Encounter for other specified aftercare
CPT/HCPCS: S9472

== ENCOUNTER 2024-12-05 11:29 | Observation (INO) | payer MEDICARE, OTHER, SELFPAY ==
[2024-12-05] VITALS (82 sets, daily range): BP systolic 103–134; BP diastolic 45–66; PULSE 43–99; RESP 11–31; TEMP 36.3–36.7; O2SAT 98–100
--- NOTE | 2024-12-05 11:30 | RT.EKG_ITS ---
APPROVED REPORT Exam: Resting ECG Reason for Exam: Chest Pain Patient Location: E HR:46 bpm ECG Measurements Heart Rate 46 AXIS MS 178 P 76 QRSd 94 QRS 72 QT 482 T 131 QTc 423 Conclusion Sinus bradycardia...rate< 60 Anterior infarct, recent...Q >30mS, ST >0.15mV, T neg, V2-V5 ST segment elevation in V2 slightly more pronounced compared to prior. Persistent biphasic T wave in V3 with left lateral T wave inversions extending to V5. No significant ST segment depressions.
--- NOTE | 2024-12-05 11:30 | RT.EKG_ITS ---
APPROVED REPORT Exam: Resting ECG Reason for Exam: Chest pain Patient Location: E HR:48 bpm ECG Measurements Heart Rate 48 AXIS CO 168 P 96 QRSd 98 QRS 68 QT 485 T 101 QTc 434 Conclusion Sinus bradycardia...rate< 60 Anterior infarct, recent...Q >30mS, ST >0.15mV, T neg, V2-V5 No STEMI
--- NOTE | 2024-12-05 11:43 | ED.GENADUL_ITS ---
Discharge Plan Disposition Patient Disposition: Admit to [facility] Condition: Stable Discharge Details Clinical Impression: Near syncope Primary Care Provider: CAROLA BELLA ED Provider: Roosevelt Arnett Home Meds and New Rx's Prescriptions: No Action polyethylene glycol 3350 [Miralax] 17 GM powder in packet 255 gm PO for colonoscopy Qty: 1 0RF bisacodyl [Dulcolax (bisacodyl)] 5 MG tablet,delayed release (DR/EC) 5 mg PO ONCE Qty: 4 0RF Rx Instructions: Take as directed. nitroglycerin 1 applic GA DIRECTED losartan 25 mg tablet 12.5 mg PO DAILY aspirin 81 mg tablet,delayed release (DR/EC) 81 mg PO DAILY atorvastatin 80 mg tablet 80 mg PO DAILY clopidogrel 75 mg tablet 75 mg PO DAILY dapagliflozin propanediol [Farxiga] 10 mg tablet 10 mg PO DAILY metoprolol succinate 25 mg tablet extended release 24 hr 25 mg PO DAILY spironolactone 25 mg tablet 12.5 mg PO DAILY tamsulosin 0.4 mg capsule 0.8 mg PO DAILY HPI General Date/Time Provider Initiated Documentation: 12/05/24 11:38 . HPI Narrative: 74 year-old male presents to ED today by POV/ambulating with a chief complaint of brief chest pain this morning while having a BM, causing severe dizziness/lightheadedness where he had to guide himself to the ground, which lasted about 40 minutes with onset about 40-45 minutes prior to arrival. Quality described as severe lightheadedness, no radiation to crushing persistent chest pain, exertion at onset, cough, fever, endorses nausea. Severity is described as moderate for pain. Palliating factors include took one nitroglycerin with some relief. Provoking factors include nothing specific. Events leading up to the incident/Associated Symptoms: Patient had a fully occluded LAD in July and was flown to [facility] from [facility]. Patient not anticoagulated - is on DAPT. Related Data Home Medications ?Medication ?Instructions ?Recorded ?Confirmed bisacodyl 5 mg tablet,delayed 5 mg PO ONCE #4 tabs 07/07/17 12/05/24 release (Dulcolax (bisacodyl)) polyethylene glycol 3350 17 gram 255 gm PO for colonoscopy #1 g 07/07/17 12/05/24 oral powder packet (Miralax) losartan 25 mg tablet 12.5 mg PO DAILY 01/14/23 12/05/24 nitroglycerin 1 applic GA DIRECTED 01/14/23 12/05/24 aspirin 81 mg tablet,delayed 81 mg PO DAILY 08/24/24 12/05/24 release atorvastatin 80 mg tablet 80 mg PO DAILY 08/24/24 12/05/24 clopidogrel 75 mg tablet 75 mg PO DAILY 08/24/24 12/05/24 dapagliflozin propanediol 10 mg 10 mg PO DAILY 08/24/24 12/05/24 tablet (Farxiga) metoprolol succinate 25 mg 25 mg PO DAILY 08/24/24 12/05/24 tablet,extended release 24 hr spironolactone 25 mg tablet 12.5 mg PO DAILY 08/24/24 12/05/24 tamsulosin 0.4 mg capsule 0.8 mg PO DAILY 08/24/24 12/05/24 Previous Rx's ?Medication ?Instructions ?Recorded bisacodyl 5 mg tablet,delayed 5 mg PO ONCE #4 tabs 07/07/17 release (Dulcolax (bisacodyl)) polyethylene glycol 3350 17 gram 255 gm PO for colonoscopy #1 g 07/07/17 oral powder packet (Miralax) Allergies Allergy/AdvReac Type Severity Reaction Status Date / Time poison gabino extract Allergy Unknown Other (See Verified 12/05/24 11:40 Comment) No Known Drug Allergies Allergy Other (See Verified 12/05/24 11:40 Comment) General Stated Complaint: Chest Pain JOHANNA: 3 Review of Systems All systems reviewed & are unremarkable except as noted in HPI and below Exam Narrative Exam Narrative: GENERAL APPEARANCE: Well-nourished, non-toxic, awake and alert, atraumatic, no acute distress. SKIN: Warm, pink, dry, intact, without rashes/lesions/ulcerations. HEAD: Normocephalic, atraumatic, normal hair distribution for gender/age. EYES: Normal conjunctiva, no exudates on lids/lashes. ENT: Nares patent, no circumoral cyanosis, no facial swelling NECK: Supple, trachea midline, painless cervical ROM. LUNGS/CHEST: Lungs CTA bilaterally, non-labored respirations, normal A/P diameter, symmetrical expansion, no chest wall deformity HEART (CV/PV): Regular rate and rhythm without murmur, no peripheral edema, no JVD. ABDOMEN: Soft, non-distended, no guarding. MSK: Normal ROM, no swelling/deformity to bilateral UEs or LEs, moving all extremities without weakness, no cyanosis, spine midline without tenderness, normal curvature. NEURO: Mental Status AAOx4 - alert to person, place, time, events No facial droop, no forehead involvement. Motor: No focal weakness - strength 5/5 in bilateral UEs and LEs, proximal and distal, symmetric. Sensory: sensation intact to light touch globally. Gait normal: patient ambulated without ataxia into ED room. PSYCH: euthymic, cooperative, pleasant, appropriate speech Course Vital Signs Vital signs: Vital Signs Temperature 36.3 C L 12/05/24 11:31 Pulse 53 L 12/05/24 11:31 Respiratory Rate 15 12/05/24 11:31 Blood Pressure 118/65 12/05/24 11:31 Pulse Oximetry 99 12/05/24 11:31 Temperature 36.3 C L 12/05/24 11:31 Pulse 53 L 12/05/24 11:31 Respiratory Rate 15 12/05/24 11:31 Blood Pressure 118/65 12/05/24 11:31 Blood Pressure Position Sitting 12/05/24 11:31 Pulse Oximetry 99 12/05/24 11:31 Oxygen Delivery Method Room Air 12/05/24 11:31 Oxygen Flow Rate 0 12/05/24 11:31 Medical Decision Making This dictation utilizes aiowp-xn-pqcb dictation software and may contain unedited grammatical errors. 74 year-old male presents to ED today by POV/ambulating with a chief complaint of brief chest pain this morning while having a BM, causing severe dizziness/l ightheadedness where he had to guide himself to the ground, which lasted about 40 minutes with onset about 40-45 minutes prior to arrival. Quality described as severe lightheadedness, no radiation to crushing persistent chest pain, exertion at onset, cough, fever, endorses nausea. Severity is described as moderate for pain. Palliating factors include took one nitroglycerin with some relief. Provoking factors include nothing specific. Events leading up to the incident/Associated Symptoms: Patient had a fully occluded LAD in July and was flown to [facility] from [facility]. Patient not anticoagulated - is on DAPT. Patients' medical history: Hypertension, essential tremor, history of substance abuse, prediabetes, history of STEMI. Family and social history: No current tobacco use, no EtOH use, exercises regularly, eats healthy. Pertinent exam findings / vital signs include regular rate bradycardic, no acute distress, benign abdomen, nontoxic and afebrile, benign pulmonary exam. Differential / pathologies of concern include ACS, tachybradycardia syndrome, arrhythmia, vasovagal near syncope. Diagnostic studies of: -CBC, CMP, serial troponins, BNP, lipase, TSH, serial EKGs, chest x-ray. -CBC shows no leukocytosis, no anemia -CMP has no actionable abnormality -Serial troponins negative and trending downward after 1 hour, 3-hour pending -BNP is 1358, nonspecific -Lipase negative -TSH within normal limits -Chest x-ray shows no acute pathology -Multiple EKG shows sinus bradycardia at 46 and 48 bpm with P waves followed by narrow complex QRS with normal axis, poor R wave progression, inverted T waves in V2 V3 V4 and V5 with some ST elevations which are chronic in V2 V3, confirmed with [facility] cards consult they are consistent with her priors last known in September Interventions of: -243mg ASA, consult with [facility] cardiology provider An at 1504 recommends 24- hour telemetry observation, orthostatic vital signs, hold metoprolol and likely discharge tomorrow with Zio patch for follow-up with them. ED Course/Assessment/Plan: 74-year-old male was having a bowel movement this morning had an episode of chest pain which resolved with nitro, was profoundly dizzy and lightheaded for about 40 minutes, has been asymptomatic since presenting to ED 45 minutes after onset, his troponins are negative, his EKG is unchanged from priors though it is concerning it is not dynamic and this is likely his baseline after his LAD occlusion last fall with some time spent with an LVAD. He is bradycardic and having occasional PVCs but has remained chest pain-free, [facility] cardiology consult recommends 24-hour telemetry observation with orthostatic vitals and holding of metoprolol likely discharge with heart monitoring, I consulted with [facility] hospitalist service who accepted for admission at 1530. Findings not consistent with ACS, unstable bradycardia/complete heart block. Disposition of Near Syncope. Patient verbalized understanding of the plan and return to ED criteria and engaged in shared decision making. Medical Records Medical records reviewed: Yes I reviewed the patient's medical records. Imaging Data Radiologic Study: Attestation: I personally reviewed and interpreted this imaging study as follows: Imaging: X-Ray Radiologist's impression: EXAM: XR PORTABLE CHEST AP CLINICAL HISTORY: chest pain TECHNIQUE: 2D digital imaging was performed. COMPARISON: No exams were available for comparison FINDINGS: LUNGS: Clear. No pleural abnormality seen. HEART: Normal size. AORTA: Normal diameter. BONES: Unremarkable for age. Soft tissues: Unremarkable. IMPRESSION: No acute findings. Lab Data Lab results reviewed: Yes I reviewed the patient's lab results. Labs: Laboratory Tests Range/Units 12/05/24 12/05/24 11:45 12:45 WBC (4.4-10.8) 10^3/uL 6.77 RBC (4.36-5.78) 10^6/uL 5.33 Hgb (13.5-17.5) g/dL 14.3 Hct (40.0-50.0) % 44.4 MCV (80-95) fL 83 MCH (27.0-33.0) pg 26.8 L MCHC (32.0-36.0) % 32.2 RDW (11.8-14.1) % 15.1 H Plt Count (130-400) 10^3/uL 181 MPV (8.0-11.0) fL 10.8 Immature Gran % % 0.3 Neutrophils % % 72.6 Lymphocytes % % 19.2 Monocytes % % 6.1 Eosinophils % % 1.2 Basophils % % 0.6 Nucleated RBC % (0.0-0.3) % 0.0 Absolute Neutrophils (1.2-6.7) 10^3/uL 4.92 Absolute Lymphocytes (1.2-3.4) 10^3/uL 1.30 Absolute Monocytes (0.1-0.8) 10^3/uL 0.41 Absolute Eosinophils (0.0-0.7) 10^3/uL 0.08 Absolute Basophils (0.0-0.2) 10^3/uL 0.04 Sodium (136-145) mmol/L 137 Potassium (3.5-5.1) mmol/L 4.0 Chloride (98-107) mmol/L 103 Carbon Dioxide (21.0-32.0) mmol/L 25.9 Anion Gap (3-11) mmol/L 8.1 BUN (7-18) mg/dL 19 H Creatinine (0.70-1.30) mg/dL 1.2 Est GFR (CKD-EPI 2020) (mL/min/1.73m2) 64.25 Glucose (74-106) mg/dL 103 Calcium (8.5-10.1) mg/dL 9.1 Magnesium mg/dL 2.0 Total Bilirubin (0.2-1.0) mg/dL 0.9 AST (15-37) U/L 24 ALT (16-63) U/L 30 Alkaline Phosphatase (46-116) U/L 74 Troponin I (<or=76) ng/L 30 28 NT-Pro-B Natriuret Pep (<300) pg/mL 1358 H Total Protein (6.4-8.2) g/dL 7.1 Albumin (3.4-5.0) g/dL 3.9 Lipase (<78) U/L 58 TSH (0.36-3.74) uIU/mL 0.93 Quality:SDOH Health Related Social Needs: No Data to Display PFSH All Active Problems (Updated 12/05/24 @ 15:20 by MAGGIE Schreiber) Near syncope (Acute) Tinnitus of both ears (Acute) Bilateral sensorineural hearing loss (Acute) Screening for malignant neoplasm of skin (Acute) Actinic keratoses (Acute) STEMI (ST elevation myocardial infarction) (Acute) Medical History Ex-smoker Essential hypertension Hyperlipidemia Tremor Essential tremor History of substance abuse Prediabetes Vitamin D deficiency Hypertension ADHD (attention deficit hyperactivity disorder) as child Surgical History Hand Surgery (09/12/95) Glass removed Colonoscopy - [facility] (07/22/17) Social History Smoking/Tobacco Use Status: Former Tobacco Use Smoking risk assessment performed?: Yes Alcohol Intake: former Drug use: Never Substance use type: does not use Housing: house Do you feel safe at home: Yes Do you feel safe in your relationship?: Yes
--- NOTE | 2024-12-05 11:45 | DI.RAD_ITS ---
Exam(s) XR PORTABLE CHEST AP EXAM: XR PORTABLE CHEST AP CLINICAL HISTORY: chest pain TECHNIQUE: 2D digital imaging was performed. COMPARISON: No exams were available for comparison FINDINGS: LUNGS: Clear. No pleural abnormality seen. HEART: Normal size. AORTA: Normal diameter. BONES: Unremarkable for age. Soft tissues: Unremarkable. IMPRESSION: No acute findings. DATA REPOSITORY: RADIATION DOSE DELIVERED:
[2024-12-05 12:04] LABS: Abs Immature Grans 0.02 10^3/uL (0.0-0.06); Absolute Basophil Count 0.04 10^3/uL (0.0-0.2); Absolute Eosinophil Count 0.08 10^3/uL (0.0-0.7); Absolute Monocyte Count 0.41 10^3/uL (0.1-0.8); Absolute Neutrophil Count 4.92 10^3/uL (1.2-6.7); Basophils % 0.6 %; Eosinophils % 1.2 %; HCT 44.4 % (40.0-50.0); HGB 14.3 g/dL (13.5-17.5); Immature Grans % 0.3 %; Lymphocytes % 19.2 %; MCH 26.8 pg (27.0-33.0); MCHC 32.2 % (32.0-36.0); MCV 83 fL (80-95); MPV 10.8 fL (8.0-11.0); Monocytes % 6.1 %; Neutrophils % 72.6 %; Platelet Count 181 10^3/uL (130-400); RBC 5.33 10^6/uL (4.36-5.78); RDW 15.1 % (11.8-14.1); WBC 6.77 10^3/uL (4.4-10.8)
[2024-12-05 12:28] LABS: ALT 30 U/L (16-63); AST 24 U/L (15-37); Albumin 3.9 g/dL (3.4-5.0); Alkaline Phosphatase 74 U/L (46-116); Anion Gap 8.1 mmol/L (3-11); BUN 19 mg/dL (7-18); Bilirubin, Total 0.9 mg/dL (0.2-1.0); CO2 25.9 mmol/L (21.0-32.0); CREATININE 1.2 mg/dL (0.70-1.30); Calcium 9.1 mg/dL (8.5-10.1); Chloride 103 mmol/L (98-107); Estimated GFR 64.25 (mL/min/1.73m2); Glucose 103 mg/dL (74-106); Lipase 58 U/L (<78); NT-proBNP 1358 pg/mL (<300); Sodium 137 mmol/L (136-145); TSH (W/Ref FT4) 0.93 uIU/mL (0.36-3.74); Total Protein 7.1 g/dL (6.4-8.2); Troponin I 30 ng/L (<or=76)
[2024-12-05] MEDS: Aspirin 81 MG CHEW 243 MG CH (12:48)
[2024-12-05 13:37] LABS: Troponin I 28 ng/L (<or=76)
[2024-12-05 15:25] LABS: Troponin I 28 ng/L (<or=76)
--- NOTE | 2024-12-05 16:31 | W.PC.ACHO ---
Registration Status: Primary Language: Preferred Language: ED Information & Data Chief Complaint Chest Pain 12/05/24 11:43 Other Complaint Dizzy/Sync 12/05/24 11:31 Triage Note PT reports episode of chest 12/05/24 11:31 pain, weakness and dizziness . PT concerned stating that he has a history of cardiac events and states that he had events like these prior to an [place]. Medical / Surgical History (Last Reviewed 08/31/24 @ 11:13 by Liliane Jean Baptiste MD) Ex-smoker Essential hypertension Hyperlipidemia Tremor Essential tremor History of substance abuse Prediabetes Vitamin D deficiency Hypertension ADHD (attention deficit hyperactivity disorder) (Last Reviewed 08/31/24 @ 11:13 by Liliane Jean Baptiste MD) Hand Surgery (09/12/95) Colonoscopy - MAC (07/22/17) Most Recent Vital Signs Temperature 36.3 C L 12/05/24 11:31 Pulse 60 12/05/24 16:30 Pulse 58 L 12/05/24 16:30 Respiratory Rate 15 12/05/24 16:30 Respiratory Effort Normal, Non-Labored 12/05/24 12:46 Respiratory Depth Normal 12/05/24 12:46 Respiratory Pattern Normal 12/05/24 12:46 Blood Pressure 116/59 L 12/05/24 16:16 Blood Pressure Mean 76 12/05/24 16:16 Blood Pressure Position Sitting 12/05/24 11:31 Pulse Oximetry 100 12/05/24 16:30 Oxygen Delivery Method Room Air 12/05/24 11:31 Oxygen Flow Rate 0 12/05/24 11:31 Comment with standing 12/05/24 15:50 Allergies poison gabino extract Allergy (Unknown, Verified 12/05/24 11:40) Other (See Comment) No Known Drug Allergies Allergy (Verified 12/05/24 11:40) Other (See Comment) IV IV Catheter Type [Left Wrist] Saline Lock IV Catheter Gauge [Left Wrist] 18 Diagnostics 12/05/24 12/05/24 12/05/24 Range/Units 14:42 12:45 11:45 WBC 6.77 (4.4-10.8) 10^3/uL RBC 5.33 (4.36-5.78) 10^6/uL Hgb 14.3 (13.5-17.5) g/dL Hct 44.4 (40.0-50.0) % MCV 83 (80-95) fL MCH 26.8 L (27.0-33.0) pg MCHC 32.2 (32.0-36.0) % RDW 15.1 H (11.8-14.1) % Plt Count 181 (130-400) 10^3/uL MPV 10.8 (8.0-11.0) fL Immature Gran % 0.3 % Neutrophils % 72.6 % Lymphocytes % 19.2 % Monocytes % 6.1 % Eosinophils % 1.2 % Basophils % 0.6 % Nucleated RBC % 0.0 (0.0-0.3) % Absolute Neutrophils 4.92 (1.2-6.7) 10^3/uL Absolute Lymphocytes 1.30 (1.2-3.4) 10^3/uL Absolute Monocytes 0.41 (0.1-0.8) 10^3/uL Absolute Eosinophils 0.08 (0.0-0.7) 10^3/uL Absolute Basophils 0.04 (0.0-0.2) 10^3/uL Sodium 137 (136-145) mmol/L Potassium 4.0 (3.5-5.1) mmol/L Chloride 103 (98-107) mmol/L Carbon Dioxide 25.9 (21.0-32.0) mmol/L Anion Gap 8.1 (3-11) mmol/L BUN 19 H (7-18) mg/dL Creatinine 1.2 (0.70-1.30) mg/dL Est GFR (CKD-EPI 2020) 64.25 (mL/min/1.73m2) Glucose 103 (74-106) mg/dL Calcium 9.1 (8.5-10.1) mg/dL Magnesium 2.0 mg/dL Total Bilirubin 0.9 (0.2-1.0) mg/dL AST 24 (15-37) U/L ALT 30 (16-63) U/L Alkaline Phosphatase 74 (46-116) U/L Troponin I 28 28 30 (<or=76) ng/L NT-Pro-B Natriuret Pep 1358 H (<300) pg/mL Total Protein 7.1 (6.4-8.2) g/dL Albumin 3.9 (3.4-5.0) g/dL Lipase 58 (<78) U/L TSH 0.93 (0.36-3.74) uIU/mL Intake and Output - 24 Hour Total 12/05/24 11:29 thru 12/05/24 11:31 Weight 61.235 kg Falls Risk Assessment History of Falls No History 12/05/24 11:39 Contributing Factors No Factors 12/05/24 11:39 Ambulatory Aids Independent 12/05/24 11:39 Tubes/Lines None 12/05/24 11:39 Gait Evaluation No gait disturbance 12/05/24 11:39 Cognition No cognitive impairment 12/05/24 11:39 Fall Total Score 0 12/05/24 11:39 Level of Risk Standard/Low Risk 12/05/24 11:39 v v v v v v v v v Sending and/or Receiving Nurses: Please use comment section below to note any information pertinent to the patient hand-off not included above. Information / Comments: Report received from: Genaro Fleming RN All questions answered
--- NOTE | 2024-12-05 19:02 | HPE_ITS ---
Date of service: 12/05/24 Time of Service: 19:02 Assessment and Plan Assessment and plan (1) Near syncope: Status: Acute Assessment and plan: Patient experienced chest pain while having a bowel movement. Pain resolved. Troponin x 3 negative Observe over night no chest pain since arrival Monitor Telemetry EKG normal sinus Consider echo Consult cardiology (ED provider spoke with [facility]) Hemodynamically stable Monitor VS O2 prn IV access Patient on Aspirin 81 mg - continue Patient on Atorvastatin 80 mg - continue Patient on Plavix 75mg daily- continue Home with event monitor (2) Chest pain: Status: Acute Assessment and plan: no chest pain since arrival Monitor Telemetry EKG normal sinus Consider echo Consult cardiology (ED provider spoke with [facility]) Hemodynamically stable Monitor VS O2 prn IV access Patient on Aspirin 81 mg - continue Patient on Atorvastatin 80 mg - continue Patient on Plavix 75mg daily- continue History of Present Illness History of Present Illness Chief Complaint: Chest pain Narrative: A 74-year-old male presents to the emergency department after experiencing brief chest pain this morning while having a bowel movement. This event caused severe dizziness and lightheadedness, prompting the patient to guide himself to the ground. The episode lasted about 40 minutes, with the onset occurring approximately 40-45 minutes prior to arrival. The lightheadedness was described as severe, but there was no crushing, persistent chest pain or radiation of pain. There was no exertion at the onset, and the patient denies coughing, fever, or exertion at the time. He does endorse some nausea. The chest pain was of moderate severity. The patient took one dose of nitroglycerin, which provided some relief. There were no specific provoking factors identified for the episode. The patient has a history of a fully occluded left anterior descending artery from July of the prior year, for which he was transferred to [facility] from [facility]. Past Medical History: * Hypertension * Essential tremor * History of substance abuse * Prediabetes * History of STEMI * Fully occluded LAD (July, treated with an intervention) * Not anticoagulated, on dual antiplatelet therapy (DAPT) Family and Social History: * No current tobacco use * No alcohol use * Exercises regularly * Eats a healthy diet Physical Examination: * Vital signs: Bradycardic with regular rate, no acute distress * Abdomen: Benign * Pulmonary exam: Benign, no acute distress * Afebrile * Nontoxic appearance Diagnostic Workup: * CBC: No leukocytosis, no anemia * CMP: No actionable abnormality * Serial Troponins: Negative and trending downward, 3-hour result pending * BNP: 1358 * Lipase: Negative * TSH: Normal * Chest X-ray: No acute pathology * EKGs: Sinus bradycardia at 46-48 bpm, narrow complex QRS with normal axis, poor R wave progression, inverted T waves in V2-V5 with chronic ST elevations (consistent with prior EKG findings from September, reviewed by [facility] cardiology) Consultation: * [facility] cardiology consulted at 1504: Recommended 24-hour telemetry observation, orthostatic vital signs, hold metoprolol, and likely discharge with follow-up (Zio patch) for monitoring. Plan: * 24-hour telemetry monitoring * Orthostatic vital signs monitoring * Hold metoprolol * Likely discharge tomorrow with follow-up, including a Zio patch * Admission to [facility] hospitalist service * Ensure patient understands the plan, and decision-making was shared Disposition: * Near Syncope. The patient was verbally informed and engaged in shared decision-making regarding the plan. The patient is a full code. Review of Systems All systems reviewed & are unremarkable except as noted in HPI and below PFSH All Active Problems (Updated 12/05/24 @ 23:31 by Litzy White NP) Chest pain (Acute) Near syncope (Acute) Medical History (Updated 12/05/24 @ 23:31 by Litzy White NP) Screening for malignant neoplasm of skin Bilateral sensorineural hearing loss Tinnitus of both ears Actinic keratoses STEMI (ST elevation myocardial infarction) Ex-smoker Essential hypertension Hyperlipidemia Tremor Essential tremor History of substance abuse Prediabetes Vitamin D deficiency Hypertension ADHD (attention deficit hyperactivity disorder) as child Surgical History Hand Surgery (09/12/95) Glass removed Colonoscopy - MAC (07/22/17) Social History Smoking/Tobacco Use Status: Former Tobacco Use Smoking risk assessment performed?: Yes Alcohol Intake: former Drug use: Never Substance use type: does not use Housing: house Do you feel safe at home: Yes Do you feel safe in your relationship?: Yes Meds Allergies and Home Medications Allergies Allergy/AdvReac Type Severity Reaction Status Date / Time poison gabino extract Allergy Unknown Other (See Verified 12/05/24 11:40 Comment) No Known Drug Allergies Allergy Other (See Verified 12/05/24 11:40 Comment) Home Medications ?Medication ?Instructions ?Recorded ?Confirmed ?Type bisacodyl 5 mg tablet,delayed 5 mg PO ONCE #4 tabs 07/07/17 12/05/24 Rx release (Dulcolax (bisacodyl)) polyethylene glycol 3350 17 gram 255 gm PO for colonoscopy #1 g 07/07/17 12/05/24 Rx oral powder packet (Miralax) losartan 25 mg tablet 12.5 mg PO DAILY 01/14/23 12/05/24 History nitroglycerin 1 applic [place] DIRECTED 01/14/23 12/05/24 History aspirin 81 mg tablet,delayed 81 mg PO DAILY 08/24/24 12/05/24 History release atorvastatin 80 mg tablet 80 mg PO DAILY 08/24/24 12/05/24 History clopidogrel 75 mg tablet 75 mg PO DAILY 08/24/24 12/05/24 History metoprolol succinate 25 mg 25 mg PO DAILY 08/24/24 12/05/24 History tablet,extended release 24 hr spironolactone 25 mg tablet 12.5 mg PO DAILY 08/24/24 12/05/24 History tamsulosin 0.4 mg capsule 0.8 mg PO DAILY 08/24/24 12/05/24 History Exam Const General: cooperative, healthy appearing, comfortable, no acute distress and well developed Nutritional Appearance: average body habitus and well nourished Orientation: alert, awake and oriented x3 HENMT Head: normal to inspection Ears: hearing grossly normal bilaterally Mouth: moist mucous membranes Chest Chest: normal inspection of the chest, normal palpation of entire chest wall and no crepitus Resp Effort & Inspection: normal respiratory effort, able to speak in complete sentences and no respiratory distress Auscultation: clear to auscultation bilaterally, no rales, no rhonchi and no wheezes Cardio Rate: regular rate Rhythm: regular rhythm Heart Sounds: S1 normal and S2 normal Skin General skin exam: no rashes or lesions noted Trauma: no lacerations or abrasions Neuro General: patient alert, patient awake and patient oriented x3 Cognition: normal cognition Speech: speech normal Gait: normal gait Extrem General: normal to inspection, capillary refill normal, no pedal edema, no calf tenderness and normal gait Results Labs 12/05/24 11:45 12/05/24 11:45 Labs: Laboratory Results - last 24 hr 12/05/24 12/05/24 12/05/24 11:45 12:45 14:42 WBC 6.77 RBC 5.33 Hgb 14.3 Hct 44.4 MCV 83 MCH 26.8 L MCHC 32.2 RDW 15.1 H Plt Count 181 MPV 10.8 Immature Gran % 0.3 Neutrophils % 72.6 Lymphocytes % 19.2 Monocytes % 6.1 Eosinophils % 1.2 Basophils % 0.6 Nucleated RBC % 0.0 Absolute Neutrophils 4.92 Absolute Lymphocytes 1.30 Absolute Monocytes 0.41 Absolute Eosinophils 0.08 Absolute Basophils 0.04 Sodium 137 Potassium 4.0 Chloride 103 Carbon Dioxide 25.9 Anion Gap 8.1 BUN 19 H Creatinine 1.2 Est GFR (CKD-EPI 2020) 64.25 Glucose 103 Calcium 9.1 Magnesium 2.0 Total Bilirubin 0.9 AST 24 ALT 30 Alkaline Phosphatase 74 Troponin I 30 28 28 NT-Pro-B Natriuret Pep 1358 H Total Protein 7.1 Albumin 3.9 Lipase 58 TSH 0.93 Last Vital Signs Temp 36.7 C 12/05/24 17:25 Pulse 61 12/05/24 17:25 Resp 16 12/05/24 17:01 BP 103/45 L 12/05/24 17:25 Pulse Ox 99 12/05/24 17:01 Time Spent Time spent with Patient: 40-54 minutes Time was spent: preparing to see the patient(eg.review tests), obtaining and/or reviewing separately otained hiistory, ordering medications,tests, procedures, referring, communicating with other health personal caregiver, indepentently interpreting results, counseling the patient and care coordination
--- NOTE | 2024-12-05 23:19 | W.PC.ACHO ---
Registration Status: Primary Language: Preferred Language: ED Information & Data Chief Complaint Chest Pain 12/05/24 11:43 Other Complaint Dizzy/Sync 12/05/24 11:31 Triage Note PT reports episode of chest 12/05/24 11:31 pain, weakness and dizziness . PT concerned stating that he has a history of cardiac events and states that he had events like these prior to an [place]. Medical / Surgical History (Last Reviewed 08/31/24 @ 11:13 by Liliane Jean Baptiste MD) Ex-smoker Essential hypertension Hyperlipidemia Tremor Essential tremor History of substance abuse Prediabetes Vitamin D deficiency Hypertension ADHD (attention deficit hyperactivity disorder) (Last Reviewed 08/31/24 @ 11:13 by Liliane Jean Baptiste MD) Hand Surgery (09/12/95) Colonoscopy - MAC (07/22/17) Most Recent Vital Signs Temperature 36.7 C 12/05/24 17:25 Temperature Source Temporal Artery Scan 12/05/24 17:25 Pulse 58 L 12/05/24 20:05 Pulse 55 L 12/05/24 21:40 Respiratory Rate 13 12/05/24 21:40 Respiratory Effort Normal, Non-Labored 12/05/24 12:46 Respiratory Depth Normal 12/05/24 12:46 Respiratory Pattern Normal 12/05/24 12:46 Blood Pressure 109/63 12/05/24 20:05 Blood Pressure Mean 77 12/05/24 20:05 Blood Pressure Position Sitting 12/05/24 11:31 Pulse Oximetry 99 12/05/24 17:01 Oxygen Delivery Method Room Air 12/05/24 11:31 Oxygen Flow Rate 0 12/05/24 11:31 Comment with standing 12/05/24 15:50 Allergies poison gabino extract Allergy (Unknown, Verified 12/05/24 11:40) Other (See Comment) No Known Drug Allergies Allergy (Verified 12/05/24 11:40) Other (See Comment) IV IV Catheter Type [Left Wrist] Saline Lock IV Catheter Gauge [Left Wrist] 18 Diet Orders Category Date Time Status Heart Healthy Eating [DIET] Nutrition 12/05/24 Dinner Active Diagnostics 12/05/24 12/05/24 12/05/24 Range/Units 14:42 12:45 11:45 WBC 6.77 (4.4-10.8) 10^3/uL RBC 5.33 (4.36-5.78) 10^6/uL Hgb 14.3 (13.5-17.5) g/dL Hct 44.4 (40.0-50.0) % MCV 83 (80-95) fL MCH 26.8 L (27.0-33.0) pg MCHC 32.2 (32.0-36.0) % RDW 15.1 H (11.8-14.1) % Plt Count 181 (130-400) 10^3/uL MPV 10.8 (8.0-11.0) fL Immature Gran % 0.3 % Neutrophils % 72.6 % Lymphocytes % 19.2 % Monocytes % 6.1 % Eosinophils % 1.2 % Basophils % 0.6 % Nucleated RBC % 0.0 (0.0-0.3) % Absolute Neutrophils 4.92 (1.2-6.7) 10^3/uL Absolute Lymphocytes 1.30 (1.2-3.4) 10^3/uL Absolute Monocytes 0.41 (0.1-0.8) 10^3/uL Absolute Eosinophils 0.08 (0.0-0.7) 10^3/uL Absolute Basophils 0.04 (0.0-0.2) 10^3/uL Sodium 137 (136-145) mmol/L Potassium 4.0 (3.5-5.1) mmol/L Chloride 103 (98-107) mmol/L Carbon Dioxide 25.9 (21.0-32.0) mmol/L Anion Gap 8.1 (3-11) mmol/L BUN 19 H (7-18) mg/dL Creatinine 1.2 (0.70-1.30) mg/dL Est GFR (CKD-EPI 2020) 64.25 (mL/min/1.73m2) Glucose 103 (74-106) mg/dL Calcium 9.1 (8.5-10.1) mg/dL Magnesium 2.0 mg/dL Total Bilirubin 0.9 (0.2-1.0) mg/dL AST 24 (15-37) U/L ALT 30 (16-63) U/L Alkaline Phosphatase 74 (46-116) U/L Troponin I 28 28 30 (<or=76) ng/L NT-Pro-B Natriuret Pep 1358 H (<300) pg/mL Total Protein 7.1 (6.4-8.2) g/dL Albumin 3.9 (3.4-5.0) g/dL Lipase 58 (<78) U/L TSH 0.93 (0.36-3.74) uIU/mL Intake and Output - 24 Hour Total 12/05/24 11:29 thru 12/05/24 18:00 Intake Total 100 Output Total 400 Balance -300 Weight 61 kg Intake: Oral 100 Output: Urine 400 Other: Urine Color Yellow Urine Appearance Clear Comment Enlarged prostate Falls Risk Assessment History of Falls No History 12/05/24 11:39 Contributing Factors No Factors 12/05/24 11:39 Ambulatory Aids Independent 12/05/24 11:39 Tubes/Lines None 12/05/24 11:39 Gait Evaluation No gait disturbance 12/05/24 11:39 Cognition No cognitive impairment 12/05/24 11:39 Fall Total Score 0 12/05/24 11:39 Level of Risk Standard/Low Risk 12/05/24 11:39 v v v v v v v v v Sending and/or Receiving Nurses: Please use comment section below to note any information pertinent to the patient hand-off not included above. Information / Comments: independent, no chest pain and SOB since admission. alert and orientated. Sinus wilbur on telemetry. VSS Report received from:
[2024-12-06 06:25] VITALS: BP 109/63; PULSE 67; RESP 18; TEMP 36.9; O2SAT 98
[2024-12-06 06:40] LABS: Abs Immature Grans 0.01 10^3/uL (0.0-0.06); Absolute Basophil Count 0.04 10^3/uL (0.0-0.2); Absolute Eosinophil Count 0.09 10^3/uL (0.0-0.7); Absolute Lymphocyte Count 1.42 10^3/uL (1.2-3.4); Absolute Monocyte Count 0.49 10^3/uL (0.1-0.8); Absolute Neutrophil Count 3.46 10^3/uL (1.2-6.7); Basophils % 0.7 %; Eosinophils % 1.6 %; HCT 43.4 % (40.0-50.0); HGB 14.3 g/dL (13.5-17.5); Immature Grans % 0.2 %; Lymphocytes % 25.8 %; MCH 26.7 pg (27.0-33.0); MCHC 32.9 % (32.0-36.0); MCV 81 fL (80-95); MPV 10.5 fL (8.0-11.0); Monocytes % 8.9 %; Neutrophils % 62.8 %; Platelet Count 175 10^3/uL (130-400); RBC 5.35 10^6/uL (4.36-5.78); RDW-SD 44.2 fL; WBC 5.51 10^3/uL (4.4-10.8)
[2024-12-06 06:52] LABS: Anion Gap 5.4 mmol/L (3-11); BUN 22 mg/dL (7-18); CO2 28.6 mmol/L (21.0-32.0); CREATININE 1.2 mg/dL (0.70-1.30); Calcium 9.1 mg/dL (8.5-10.1); Chloride 108 mmol/L (98-107); Estimated GFR 64.25 (mL/min/1.73m2); Glucose 86 mg/dL (74-106); Magnesium 2.1 mg/dL; Potassium 4.5 mmol/L (3.5-5.1); Sodium 142 mmol/L (136-145)
--- NOTE | 2024-12-06 09:01 | DSE_ITS ---
Date of service: 12/06/24 Time of Service: 09:01 DS: Diagnosis Discharge Diagnosis (1) Near syncope: Status: Acute (2) Chest pain: Status: Acute Discharge Plan Disposition Patient Disposition: Home Condition: Good Discharge Details Reason For Visit: Bradycardia Admit Date/Time: 12/05/24 16:07 Admit Provider: Clint Cespedes Attending Provider: Clint Cespedes Primary Care Provider: CAROLA BELLA Hospital Course Hospital Course: History of Present Illness: The patient is a 74-year-old male who presented to the emergency department after experiencing brief chest pain in the morning while having a bowel movement. The chest pain was moderate in severity, and the patient reported severe dizziness and lightheadedness, prompting him to guide himself to the ground. The episode lasted about 40 minutes and started 40-45 minutes prior to arrival. There was no crushing or persistent chest pain, and the pain did not radiate. The patient endorsed nausea but did not experience any shortness of breath or fever at the time of onset. The patient took one dose of nitroglycerin, which provided some relief. No specific provoking factors were identified for the episode. 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 Past Medical History: * Hypertension * Essential tremor * History of substance abuse * Prediabetes * History of STEMI * Fully occluded LAD (July, treated with intervention) * Not anticoagulated, on dual antiplatelet therapy Family and Social History: * No current tobacco use * No alcohol use * Exercises regularly * Eats a healthy diet Physical Examination: * General: Nontoxic appearance, no acute distress * Vital Signs: Bradycardic with regular rate, no acute distress * Abdomen: Benign * Pulmonary Exam: Benign, no acute distress * Afebrile * Cardiovascular: Bradycardia with regular rate (46-48 bpm), no murmurs or abnormal heart sounds * Neurological: No focal deficits, normal mental status Diagnostic Workup: * CBC: No leukocytosis, no anemia * CMP: No actionable abnormality * Serial Troponins: Negative x 3 * BNP: 1358 * Lipase: Negative * TSH: Normal * Chest X-ray: No acute pathology * EKGs: Normal sinus rhythm (~60-70 bpm), narrow complex QRS, normal axis, poor R wave progression, inverted T waves in V2-V5, chronic ST elevations (consistent with prior EKG findings from September) [place] [facility] [place] and recommended the following: * 24-hour telemetry observation * Orthostatic vital signs monitoring * Hold metoprolol * Likely discharge tomorrow with follow-up, including Zio patch for monitoring Hospital Course: The patient was admitted for further evaluation of his near-syncope episode and chest pain. Serial troponins were negative and trending downward, and other diagnostics, including BNP, EKG, and chest X-ray, did not suggest acute myocardial injury or other severe pathology. Cardiology consultation recommended telemetry monitoring and orthostatic vital signs monitoring. The patient?s metoprolol was held due to bradycardia. The patient was stable throughout the hospitalization, had no chest pain and was informed about the discharge plan. Discharge Plan: * Telemetry Monitorin-hour telemetry observation was completed during the hospital stay. * Medications: Continue dual antiplatelet therapy and follow-up with PCP and cardiology for medication adjustments. * Follow-up: Follow up with cardiology and PCP * Lifestyle Modifications: Continue regular exercise and healthy diet * Patient Education: The patient was informed and engaged in shared decision- making regarding the discharge plan. He was instructed to seek medical attention if he experiences any recurrence of chest pain, dizziness, or lightheadedness. The patient was advised to return to the emergency department or seek immediate medical attention if any of the following symptoms occur: * Recurrence or worsening of chest pain, especially if it becomes persistent, crushing, or radiates to the arm, neck, or jaw * New or worsening dizziness, lightheadedness, or near syncope * Shortness of breath or difficulty breathing * Palpitations or irregular heartbeats * Swelling in the legs or feet * Severe nausea or vomiting * Sudden changes in vision or speech * Any other concerning symptoms that may suggest a new or worsening cardiac event The patient was instructed to call 911 or go to the nearest emergency room if experiencing any of the above symptoms urgently. Disposition: The patient is a full code and was discharged in stable condition. He was provided with discharge instructions and understood the plan. A follow-up appointment was scheduled with cardiology. Home Meds and New Rx's Prescriptions: Continued polyethylene glycol 3350 [Miralax] 17 GM powder in packet 255 gm PO for colonoscopy Qty: 1 0RF bisacodyl [Dulcolax (bisacodyl)] 5 MG tablet,delayed release (DR/EC) 5 mg PO ONCE Qty: 4 0RF Rx Instructions: Take as directed. nitroglycerin 1 applic MD DIRECTED losartan 25 mg tablet 12.5 mg PO DAILY aspirin 81 mg tablet,delayed release (DR/EC) 81 mg PO DAILY atorvastatin 80 mg tablet 80 mg PO DAILY clopidogrel 75 mg tablet 75 mg PO DAILY metoprolol succinate 25 mg tablet extended release 24 hr 25 mg PO DAILY spironolactone 25 mg tablet 12.5 mg PO DAILY tamsulosin 0.4 mg capsule 0.8 mg PO DAILY Discharge Instructions Instructions: Chest pain - Discharge instructions Additional Instructions: * Medications: Continue dual antiplatelet therapy and follow-up with PCP and cardiology for medication adjustments. Continue all other home medications * Lifestyle Modifications: Continue regular exercise and healthy diet Return to the emergency department or seek immediate medical attention if any of the following symptoms occur: * Recurrence or worsening of chest pain, especially if it becomes persistent, crushing, or radiates to the arm, neck, or jaw * New or worsening dizziness, lightheadedness, or near syncope * Shortness of breath or difficulty breathing * Palpitations or irregular heartbeats * Swelling in the legs or feet * Severe nausea or vomiting * Sudden changes in vision or speech * Any other concerning symptoms that may suggest a new or worsening cardiac event Call 911 or go to the nearest emergency room if experiencing any of the above symptoms urgently. Referrals: [place] [place] - (1-2 weeks post hospitalization for chest pain) CAROLA BELLA [Primary Care Provider] - (1-2 weeks post hospitalization follow up ) Activity:: Activity as Tolerated Equipment/Supplies:: No Equipment Needed Diet:: As Tolerated Discharge Orders Discharge Orders: Discharge Order (Routine); Ordered 12/06/24 Ordered By: Litzy White DS: Summary Time Spent with Patient providing and/or coordinating discharge services: Greater than 30 minutes Status at Discharge Functional status at discharge: independent ambulation Overall status at discharge: patient is back to baseline Mental Status: mental status grossly normal Speech and Movement: speech and movement normal Mood: congruent mood Affect: normal affect Quality:SDOH Health Related Social Needs: Health related social needs problems related to housin g/economic circumstances (Z59.89) Exam Const General: cooperative, healthy appearing, comfortable, no acute distress and well developed Nutritional Appearance: average body habitus and well nourished Orientation: alert, awake and oriented x3 HENMT Head: normal to inspection Ears: hearing grossly normal bilaterally Mouth: moist mucous membranes Chest Chest: normal inspection of the chest, normal palpation of entire chest wall and no crepitus Resp Effort & Inspection: normal respiratory effort, able to speak in complete sentences and no respiratory distress Auscultation: clear to auscultation bilaterally, no rales, no rhonchi and no wheezes Cardio Rate: regular rate Rhythm: regular rhythm Heart Sounds: S1 normal and S2 normal Skin General skin exam: no rashes or lesions noted Trauma: no lacerations or abrasions Neuro General: patient alert, patient awake and patient oriented x3 Cognition: normal cognition Speech: speech normal Gait: normal gait Extrem General: normal to inspection, capillary refill normal, no pedal edema, no calf tenderness and normal gait Psych Mental Status: mental status grossly normal Speech and Movement: speech and movement normal Mood: congruent mood Affect: normal affect DS: Data Vitals/I&O Vitals and I&O: Vital Signs Temperature 36.9 C 12/06/24 06:25 Temperature Source Temporal Artery Scan 12/06/24 06:25 Pulse 67 12/06/24 06:25 Pulse 55 L 12/05/24 21:40 Respiratory Rate 18 12/06/24 06:25 Respiratory Effort Normal, Non-Labored 12/05/24 12:46 Respiratory Depth Normal 12/05/24 12:46 Respiratory Pattern Normal 12/05/24 12:46 Blood Pressure 109/63 12/06/24 06:25 Blood Pressure Mean 77 12/05/24 20:05 Blood Pressure Position Sitting 12/05/24 11:31 Pulse Oximetry 98 12/06/24 06:25 Oxygen Delivery Method Room Air 12/06/24 06:25 Oxygen Flow Rate 0 12/06/24 06:25 Pain Level 0 12/06/24 06:25 Comment with standing 12/05/24 15:50 Intake & Output 12/05/24 12/05/24 12/06/24 11:59 23:59 11:59 Intake Total 100 / 100 Output Total 400 / 400 Balance -300 / -300 Weight 61.235 kg 61 kg Intake: Oral 100 / 100 Output: Urine 400 / 400 Other: Urine Color Yellow Urine Appearance Clear Comment Enlarged prostate pT stated that he got up and voided this morning. Data Completed and Pending Labs on day of discharge: Labs from last 24 hours 12/06/24 12/05/24 12/05/24 05:56 14:42 12:45 WBC 5.51 RBC 5.35 Hgb 14.3 Hct 43.4 MCV 81 MCH 26.7 L MCHC 32.9 RDW 15.0 H Plt Count 175 MPV 10.5 Immature Gran % 0.2 Neutrophils % 62.8 Lymphocytes % 25.8 Monocytes % 8.9 Eosinophils % 1.6 Basophils % 0.7 Nucleated RBC % 0.0 Absolute Neutrophils 3.46 Absolute Lymphocytes 1.42 Absolute Monocytes 0.49 Absolute Eosinophils 0.09 Absolute Basophils 0.04 Sodium 142 Potassium 4.5 Chloride 108 H Carbon Dioxide 28.6 Anion Gap 5.4 BUN 22 H Creatinine 1.2 Est GFR (CKD-EPI 2020) 64.25 Glucose 86 Calcium 9.1 Magnesium 2.1 Total Bilirubin AST ALT Alkaline Phosphatase Troponin I 28 28 NT-Pro-B Natriuret Pep Total Protein Albumin Lipase TSH 12/05/24 11:45 WBC 6.77 RBC 5.33 Hgb 14.3 Hct 44.4 MCV 83 MCH 26.8 L MCHC 32.2 RDW 15.1 H Plt Count 181 MPV 10.8 Immature Gran % 0.3 Neutrophils % 72.6 Lymphocytes % 19.2 Monocytes % 6.1 Eosinophils % 1.2 Basophils % 0.6 Nucleated RBC % 0.0 Absolute Neutrophils 4.92 Absolute Lymphocytes 1.30 Absolute Monocytes 0.41 Absolute Eosinophils 0.08 Absolute Basophils 0.04 Sodium 137 Potassium 4.0 Chloride 103 Carbon Dioxide 25.9 Anion Gap 8.1 BUN 19 H Creatinine 1.2 Est GFR (CKD-EPI 2020) 64.25 Glucose 103 Calcium 9.1 Magnesium 2.0 Total Bilirubin 0.9 AST 24 ALT 30 Alkaline Phosphatase 74 Troponin I 30 NT-Pro-B Natriuret Pep 1358 H Total Protein 7.1 Albumin 3.9 Lipase 58 TSH 0.93 PFSH All Active Problems (Updated 12/05/24 @ 23:31 by Litzy White NP) Chest pain (Acute) Near syncope (Acute) Medical History (Updated 12/05/24 @ 23:31 by Litzy White NP) Screening for malignant neoplasm of skin Bilateral sensorineural hearing loss Tinnitus of both ears Actinic keratoses STEMI (ST elevation myocardial infarction) Ex-smoker Essential hypertension Hyperlipidemia Tremor Essential tremor History of substance abuse Prediabetes Vitamin D deficiency Hypertension ADHD (attention deficit hyperactivity disorder) as child Surgical History Hand Surgery (09/12/95) Glass removed Colonoscopy - MAC (07/22/17) Social History Smoking/Tobacco Use Status: Former Tobacco Use Smoking risk assessment performed?: Yes Alcohol Intake: former Drug use: Never Substance use type: does not use Housing: house Do you feel safe at home: Yes Do you feel safe in your relationship?: Yes Time Spent with Patient Time Spent with Patient: <45 minutes Time was spent: preparing to see the patient(eg.review tests), ordering medications,tests, procedures, referring, communicating with other health resident caregiver, indepentently interpreting results, counseling the patient and care coordination
[2024-12-06] MEDS: Clopidogrel 75 MG TAB PO (09:02)
[2024-12-06] MEDS: Spironolactone 25 MG TAB 12.5 MG PO (09:02)
[2024-12-06] MEDS: Atorvastatin 40 MG TAB 80 MG PO (09:02)
[2024-12-06] MEDS: Aspirin E.C. 81 MG TABEC PO (09:02)
[2024-12-06] MEDS: Tamsulosin 0.4 MG CAPCR 0.8 MG PO (09:02)
[2024-12-06] MEDS: Losartan 25 MG TAB 12.5 MG PO (09:03)
[2024-12-06 09:24] VITALS: BP 100/63; BP 108/61; BP 114/68; PULSE 60; PULSE 73; PULSE 75
== END 2024-12-06 09:52 | disposition home or self-care (01) ==
LOC: ER 16:20 → ICU 17:22 → MS 22:28
PROVIDERS: Nurse Practitioner Family; Admitting Provider Family Medicine; Emergency Provider Physician Assistant; PCP Nurse Practitioner Primary Care; Responsible Provider Nurse Practitioner Acute Care; Visit Provider Family Medicine
DX: R55 Syncope and collapse (principal); R07.89 Other chest pain; I10 Essential (primary) hypertension; G25.0 Essential tremor; R73.03 Prediabetes; I25.2 Old myocardial infarction; F19.11 Other psychoactive substance abuse, in remission; H90.3 Sensorineural hearing loss, bilateral; Z87.891 Personal history of nicotine dependence; E78.5 Hyperlipidemia, unspecified; E55.9 Vitamin D deficiency, unspecified; F90.9 Attention-deficit hyperactivity disorder, unspecified type; Z79.82 Long term (current) use of aspirin; Z79.02 Long term (current) use of antithrombotics/antiplatelets; Z79.899 Other long term (current) drug therapy
CPT/HCPCS: 00123; 36415; 80048; 80053; 83690; 93005; 99285; 71045; 83735; 83880; 84443; 84484; 85025; 93010; 99222; 99239; G0378

== ENCOUNTER 2024-12-10 10:08 | Outpatient (RCR) | payer MEDICARE, OTHER, SELFPAY | END 2024-12-10 23:59 | disposition home or self-care (01) | LOC: CR 10:08 | PROVIDERS: PCP Nurse Practitioner Primary Care; Visit Provider Internal Medicine Cardiovascular Disease | DX: I21.09 ST elevation (STEMI) myocardial infarction involving other coronary artery of anterior wall (principal); Z95.5 Presence of coronary angioplasty implant and graft; Z51.89 Encounter for other specified aftercare | CPT/HCPCS: S9472 ==

== ENCOUNTER 2024-12-17 10:29 | Outpatient (RCR) | payer MEDICARE, OTHER, SELFPAY | END 2025-01-09 23:59 | disposition home or self-care (01) | LOC: CR 10:29 | PROVIDERS: PCP Nurse Practitioner Primary Care; Visit Provider Internal Medicine Cardiovascular Disease | DX: I21.09 ST elevation (STEMI) myocardial infarction involving other coronary artery of anterior wall (principal); Z95.2 Presence of prosthetic heart valve; Z51.89 Encounter for other specified aftercare | CPT/HCPCS: S9472 ==

== ENCOUNTER 2025-01-04 15:00 | Outpatient (RCR) | payer SELFPAY ==
[2024-12-21 15:03] VITALS: BP 121/68; PULSE 78
[2024-12-26 15:06] VITALS: BP 106/64; PULSE 55; O2SAT 98
== END 2025-01-09 23:59 | disposition home or self-care (01) ==
LOC: CR 15:00
PROVIDERS: PCP Nurse Practitioner Primary Care; Visit Provider Internal Medicine Cardiovascular Disease

== ENCOUNTER 2025-01-09 15:41 | Emergency (ER) | payer MEDICARE, OTHER, SELFPAY ==
[2025-01-09] VITALS (23 sets, daily range): BP systolic 94–138; BP diastolic 49–77; PULSE 53–84; RESP 12–34; TEMP 36.2; O2SAT 98–100
--- NOTE | 2025-01-09 15:45 | RT.EKG_ITS ---
APPROVED REPORT Exam: Resting ECG Reason for Exam: dizziness Patient Location: E HR:85 bpm ECG Measurements Heart Rate 85 AXIS WY 211 P 0 QRSd 92 QRS 72 QT 406 T 147 QTc 484 Conclusion Sinus rhythm...normal P axis, V-rate 60- 99 Ventricular tachycardia, unsustained...sequence of 3 or more V complexes Sinus pause...long R-R interval, normal QRSd Probable anteroseptal infarct, recent...Q, ST>0.15mV, T neg, V1-V2
--- NOTE | 2025-01-09 16:05 | ED.GENADUL_ITS ---
Discharge Plan Disposition Patient Disposition: Home Condition: Stable Discharge Details Clinical Impression: Lightheaded, Dizziness Primary Care Provider: CAROLA BELLA ED Provider: Brandan Oswald Home Meds and New Rx's Prescriptions: New meclizine 25 mg tablet 25 mg PO TID PRN (Reason: dizziness) Qty: 30 0RF Continued polyethylene glycol 3350 [Miralax] 17 GM powder in packet 255 gm PO for colonoscopy Qty: 1 0RF bisacodyl [Dulcolax (bisacodyl)] 5 MG tablet,delayed release (DR/EC) 5 mg PO ONCE Qty: 4 0RF Rx Instructions: Take as directed. nitroglycerin 1 applic [place] DIRECTED losartan 25 mg tablet 12.5 mg PO DAILY aspirin 81 mg tablet,delayed release (DR/EC) 81 mg PO DAILY atorvastatin 80 mg tablet 80 mg PO DAILY clopidogrel 75 mg tablet 75 mg PO DAILY metoprolol succinate 25 mg tablet extended release 24 hr 25 mg PO DAILY spironolactone 25 mg tablet 12.5 mg PO DAILY tamsulosin 0.4 mg capsule 0.8 mg PO DAILY Discharge Instructions Additional Instructions: Your blood work did not show any concerning findings at this time and your exam is also reassuring. You can take the meclizine as needed for dizziness. Try to make sure you are staying hydrated. Follow-up with your primary care provider if symptoms continue within a week. If you feel significantly more ill or have new symptoms such as weakness or difficulty breathing return to the emergency department for reevaluation HPI General Date/Time Provider Initiated Documentation: 01/09/25 15:42 . Limitations to Documentation: no limitations . Information obtained by: patient . History of Present Illness 74 year old M presents to the emergency department with the chief complaint of lightheaded and dizzy, described as moderate, Patient started experiencing this day(s) (1) and it has been intermittent. Rest improves symptom(s), Other factors that worsen symptoms (standing up) . Patient notes denies fever/chills and shortness of breath. Patient did receive the following treatments prior to arrival, none Related Data Home Medications ?Medication ?Instructions ?Recorded ?Confirmed bisacodyl 5 mg tablet,delayed 5 mg PO ONCE #4 tabs 07/07/17 01/09/25 release (Dulcolax (bisacodyl)) polyethylene glycol 3350 17 gram 255 gm PO for colonoscopy #1 g 10/26/17 04/30/25 oral powder packet (Miralax) losartan 25 mg tablet 12.5 mg PO DAILY 01/14/23 01/09/25 nitroglycerin 1 applic [place] DIRECTED 01/14/23 01/09/25 aspirin 81 mg tablet,delayed 81 mg PO DAILY 08/24/24 01/09/25 release atorvastatin 80 mg tablet 80 mg PO DAILY 08/24/24 01/09/25 clopidogrel 75 mg tablet 75 mg PO DAILY 08/24/24 01/09/25 metoprolol succinate 25 mg 25 mg PO DAILY 08/24/24 01/09/25 tablet,extended release 24 hr spironolactone 25 mg tablet 12.5 mg PO DAILY 08/24/24 01/09/25 tamsulosin 0.4 mg capsule 0.8 mg PO DAILY 08/24/24 01/09/25 meclizine 25 mg tablet 25 mg PO TID PRN dizziness #30 tabs 01/09/25 Previous Rx's ?Medication ?Instructions ?Recorded bisacodyl 5 mg tablet,delayed 5 mg PO ONCE #4 tabs 07/07/17 release (Dulcolax (bisacodyl)) polyethylene glycol 3350 17 gram 255 gm PO for colonoscopy #1 g 07/07/17 oral powder packet (Miralax) meclizine 25 mg tablet 25 mg PO TID PRN dizziness #30 tabs 01/09/25 Allergies Allergy/AdvReac Type Severity Reaction Status Date / Time poison gabino extract Allergy Unknown Other (See Verified 01/09/25 15:51 Comment) No Known Drug Allergies Allergy Other (See Verified 01/09/25 15:51 Comment) General Stated Complaint: Dizzy/Sync JOHANNA: 3 Review of Systems All systems reviewed & are unremarkable except as noted in HPI and below Constitutional Constitutional: Denies chills, Denies fever(s) and Denies weakness ENT Ears, Nose, Mouth, and Throat: Reports dizziness Cardiovascular Cardiovascular: Denies chest pain, Denies dyspnea and Reports other (lightheaded) Respiratory Respiratory: Denies cough and Denies dyspnea Gastrointestinal Gastrointestinal: Denies abdominal pain, Denies nausea and Denies vomiting Neurologic Neurologic: Reports dizziness and Denies weakness Psychiatric Psychiatric: Denies depression Exam Const General: no acute distress Orientation: alert HENUT Head: normal to inspection Ears: external ears normal General nose exam: external nose normal Mouth: moist mucous membranes Eyes General: appearance normal, both eyes and all related structures EOM: nystagmus Neck Neck: normal visual inspection Resp Effort & Inspection: normal respiratory effort and able to speak in complete sentences Cardio Rate: regular rate Skin General skin exam: no rashes or lesions noted Neuro General: patient alert and patient oriented x3 Cranial Nerves: PERRL, EOM intact bilaterally and nystagmus horizontal and with left lateral gaze Cognition: normal cognition Motor: muscle tone normal throughout Sensory Exam: no sensory deficits noted Extrem General: normal to inspection Psych Mental Status: mental status grossly normal Course Vital Signs Vital signs: Vital Signs Temperature 36.2 C L 01/09/25 15:46 Pulse 63 01/09/25 15:46 Respiratory Rate 20 01/09/25 15:46 Blood Pressure 116/70 01/09/25 15:46 Pulse Oximetry 98 01/09/25 15:46 Temperature 36.2 C L 01/09/25 15:46 Pulse 54 L 01/09/25 16:00 Pulse 74 01/09/25 16:00 Respiratory Rate 13 01/09/25 16:00 Respiratory Effort Normal 01/09/25 15:59 Respiratory Depth Normal 01/09/25 15:59 Blood Pressure 123/65 01/09/25 15:59 Blood Pressure Mean 82 01/09/25 15:59 Blood Pressure Position Sitting 01/09/25 15:46 Pulse Oximetry 99 01/09/25 16:00 Oxygen Delivery Method Room Air 01/09/25 15:46 Oxygen Flow Rate 0 01/09/25 15:46 Medical Decision Making 74-year-old male with history of coronary artery disease with stent placed in July after having a STEMI, who comes in with feeling lightheaded and dizzy especially when he stands up starting this morning. He denies any severe chest pain, difficulty breathing, vomiting, diaphoresis. He denies any loss of vision, changes in speech or unilateral weakness. He is oriented x 4 speaking in full sentences in no distress. He has clear lung sounds, no JVD, no axillary Tenderness. No abdominal tenderness. He is moving all his extremities well with normal strength. He has no cranial nerve deficits, he does have nystagmus in both eyes horizontally when looking to the left. I suspect peripheral vertigo based on his exam, I doubt central vertigo given his exam. Will proceed with CBC, CMP and troponins given his history and also treat his symptoms with meclizine and reassess. Labs unremarkable patient feels significantly better. Given reassuring workup I feel he stable for discharge. He will follow-up with his PCP and return precautions given Differential Diagnosis Differential Diagnosis: Vertigo, orthostasis Medical Records Medical records reviewed: Yes I reviewed the patient's medical records. Lab Data Lab results reviewed: Yes I reviewed the patient's lab results. ECG Data Attestation: I personally reviewed and interpreted this ECG (s) as follows: Prior ECG tracings: available for review Interpretation: Sinus rhythm, PVCs, rate of 84, no STEMI Quality:SDOH Health Related Social Needs: Health related social needs problems related to housin g/economic circumstances (Z59.89) PFSH All Active Problems (Updated 01/09/25 @ 17:49 by Brandan Oswald MD) Dizziness (Acute) Lightheaded (Acute) Near syncope (Acute) Medical History (Updated 01/09/25 @ 17:49 by Brandan Oswald MD) Screening for malignant neoplasm of skin Bilateral sensorineural hearing loss Tinnitus of both ears Actinic keratoses STEMI (ST elevation myocardial infarction) Ex-smoker Essential hypertension Hyperlipidemia Tremor Essential tremor History of substance abuse Prediabetes Vitamin D deficiency Hypertension ADHD (attention deficit hyperactivity disorder) as child Surgical History Hand Surgery (09/12/95) Glass removed Colonoscopy - MAC (07/22/17) Social History Smoking/Tobacco Use Status: Former Tobacco Use Smoking risk assessment performed?: Yes Alcohol Intake: former Drug use: Never Substance use type: does not use Housing: house Do you feel safe at home: Yes Do you feel safe in your relationship?: Yes
[2025-01-09] MEDS: Meclizine 25 MG TAB PO (16:26)
[2025-01-09 16:33] LABS: Bilirubin Negative (Negative); Blood Negative (Negative); Clarity Clear (Clear); Glucose Negative (Negative); Ketones Negative (Negative); Leukocyte Esterase Negative (Negative); Nitrite Negative (Negative); Specific Gravity <= 1.005 (1.005-1.025); Urobilinogen 0.2 mg/dL (Up to 0.2); pH 5.5 (5-8)
[2025-01-09 16:35] LABS: Abs Immature Grans 0.02 10^3/uL (0.0-0.06); Absolute Basophil Count 0.03 10^3/uL (0.0-0.2); Absolute Eosinophil Count 0.16 10^3/uL (0.0-0.7); Absolute Lymphocyte Count 1.55 10^3/uL (1.2-3.4); Absolute Monocyte Count 0.48 10^3/uL (0.1-0.8); Absolute Neutrophil Count 4.65 10^3/uL (1.2-6.7); Basophils % 0.4 %; Eosinophils % 2.3 %; HCT 44.6 % (40.0-50.0); HGB 14.4 g/dL (13.5-17.5); Immature Grans % 0.3 %; Lymphocytes % 22.5 %; MCH 26.9 pg (27.0-33.0); MCHC 32.3 % (32.0-36.0); MCV 83 fL (80-95); MPV 10.8 fL (8.0-11.0); Neutrophils % 67.5 %; Platelet Count 183 10^3/uL (130-400); RBC 5.35 10^6/uL (4.36-5.78); RDW 15.1 % (11.8-14.1); RDW-SD 46.1 fL; WBC 6.89 10^3/uL (4.4-10.8)
[2025-01-09 17:01] LABS: ALT 29 U/L (16-63); AST 22 U/L (15-37); Albumin 3.7 g/dL (3.4-5.0); Alkaline Phosphatase 80 U/L (46-116); Anion Gap 7.4 mmol/L (3-11); BUN 22 mg/dL (7-18); Bilirubin, Total 0.4 mg/dL (0.2-1.0); CO2 28.6 mmol/L (21.0-32.0); CREATININE 1.2 mg/dL (0.70-1.30); Calcium 8.7 mg/dL (8.5-10.1); Chloride 105 mmol/L (98-107); Estimated GFR 64.25 (mL/min/1.73m2); Glucose 97 mg/dL (74-106); Magnesium 2.2 mg/dL (1.8-2.4); Potassium 3.6 mmol/L (3.5-5.1); Sodium 141 mmol/L (136-145); Total Protein 6.8 g/dL (6.4-8.2); Troponin I 25 ng/L (<or=76)
[2025-01-09 17:36] LABS: Troponin I 25 ng/L (<or=76)
== END 2025-01-09 18:34 | disposition home or self-care (01) ==
PROVIDERS: Emergency Provider Emergency Medicine; PCP Nurse Practitioner Primary Care
DX: R42 Dizziness and giddiness (principal); I10 Essential (primary) hypertension; E78.5 Hyperlipidemia, unspecified; I25.10 Atherosclerotic heart disease of native coronary artery without angina pectoris; I25.2 Old myocardial infarction; Z79.02 Long term (current) use of antithrombotics/antiplatelets; Z95.5 Presence of coronary angioplasty implant and graft; Z87.891 Personal history of nicotine dependence
CPT/HCPCS: 36415; 80053; 93005; 99284; 81003; 83735; 84484; 85025; 93010

== ENCOUNTER 2025-01-23 15:27 | Outpatient (RCR) | payer SELFPAY ==
[2025-01-10 00:23] VITALS: BP 106/64; PULSE 55
[2025-01-11 15:33] VITALS: BP 102/60; PULSE 62
[2025-01-16 15:23] VITALS: BP 114/65; PULSE 89
[2025-01-23 15:30] VITALS: BP 108/60; PULSE 53
== END 2025-02-09 23:59 | disposition home or self-care (01) ==
LOC: CR 15:27
PROVIDERS: PCP Nurse Practitioner Primary Care; Visit Provider Internal Medicine Cardiovascular Disease
DX: R69 Illness, unspecified (principal)

== ENCOUNTER 2025-09-11 13:43 | Emergency (ER) | payer MEDICARE, OTHER, SELFPAY ==
[2025-09-11 13:55] VITALS: BP 122/71; PULSE 54; RESP 15; TEMP 36.7; O2SAT 98
--- NOTE | 2025-09-11 15:58 | W.ED.PROC ---
Date of service: 09/11/25 Time of Service: 15:58 Procedures Laceration Laceration 1: Site: hand Side (If applicable): left Size (cm): 1 Description: linear Depth: simple, single layer Local anesthetic: Lidocaine 1% and with Epi Amount of anesthesia used (mL): 3 Pre-repair: wound explored, irrigated extensively and deep structures intact Skin layer closed with: nylon Size (cm): 5-0 Number of sutures: 3 Technique: simple, interrupted Medical Decision Making Assisted in laceration repair at the request of Dr. Salazar. Wound anesthetized with 1% lido with epi, anesthesia achieved, cleaned with chlorahexadine and NS. Closed with 3 simple interrupted sutures 5.0 Ethilon. Patient tolerated well, wound well approximated. See procedure note. Quality:SDOH Health Related Social Needs: Health related social needs house/econ circumstance
[2025-09-11] MEDS: Diph,Pertuss(Acell),Tet Vac/Pf 0.5 ML SYR IM (16:23)
--- NOTE | 2025-09-16 14:31 | W.ED.GENAD ---
Discharge Plan Disposition Patient Disposition: Home Discharge Details Clinical Impression: Hand laceration Primary Care Provider: CAROLA BELLA ED Provider: Luis Salazar Home Meds and New Rx's Prescriptions: No Action polyethylene glycol 3350 [Miralax] 17 GM powder in packet 255 gm PO for colonoscopy Qty: 1 0RF bisacodyl [Dulcolax (bisacodyl)] 5 MG tablet,delayed release (DR/EC) 5 mg PO ONCE Qty: 4 0RF Rx Instructions: Take as directed. nitroglycerin 1 applic LA DIRECTED losartan 25 mg tablet 12.5 mg PO DAILY aspirin 81 mg tablet,delayed release (DR/EC) 81 mg PO DAILY atorvastatin 80 mg tablet 80 mg PO DAILY clopidogrel 75 mg tablet 75 mg PO DAILY metoprolol succinate 25 mg tablet extended release 24 hr 25 mg PO DAILY spironolactone 25 mg tablet 12.5 mg PO DAILY tamsulosin 0.4 mg capsule 0.8 mg PO DAILY meclizine 25 mg tablet 25 mg PO TID PRN (Reason: dizziness) Qty: 30 0RF Discharge Instructions Instructions: Laceration Repair With Stitches ED Additional Instructions: As discussed, you received 3 sutures today which will need to be removed, since this area is under tension and moves I recommend within the next 10 to 14 days for suture removal. This can be accomplished at any urgent care, primary care clinic or emergency department. Please keep an eye on the area for signs of infection which include redness, pain, increasing warmth, purulent discharge, or secondary signs such as nausea vomiting or fever/chills. Stand Alone Forms: Portal Information Discharge Data Discharge Date/Time-TO BE ENTERED AT DEPARTURE: 09/11/25 16:28 HPI General Date/Time Provider Initiated Documentation: 09/11/25 14:03. HPI Narrative: MDM/Narrative: 75-year-old male presents for evaluation of puncture wound to the left hand. No focal deficits on examination. Wound was repaired by MAGGIE Doe. Will discharge patient to follow-up with primary care for suture removal. Disposition: Home HPI: 75-year-old male presents for evaluation of left hand injury. Patient states he was using a pocket knife, when he accidentally stuck himself with a knife in the interdigital space of the left hand between the 1st and 2nd digit. Notes at this time that the wound is not bleeding anymore, denies any difficulty moving his hand, severe pain numbness weakness or any other new or concerning symptoms. Notes that the knife was clean and had not been used yet. ROS: Negative besides as mentioned above Exam: Gen: A&O NAD HEENT: NCAT, EOMI, not icteric. External ears normal. No rhinorrhea. Moist mucous membranes. Neck: Supple, full range of motion, no observable masses, No meningeal sign. Lungs: No Respiratory distress. CV: RRR, no edema. Abdomen: Soft, nondistended, No rebound tenderness. MSK: No joint swelling, no redness. There is a 4 cm curvilinear laceration to the interdigital space of the left hand between the 1st and 2nd digit on the dorsal aspect. No subcutaneous tissue present, full range of motion of the left thumb, neurovascular status intact for all 5 digits of the left hand. Skin: No rashes, petechiae, lesions. Normal color per patient. Neuro: Normal Gait, Grossly intact. Psych: Appropriate for situation. Related Data Home Medications ?Medication ?Instructions ?Recorded ?Confirmed bisacodyl 5 mg tablet,delayed 5 mg PO ONCE #4 tabs 07/07/17 09/11/25 release (Dulcolax (bisacodyl)) polyethylene glycol 3350 17 gram 255 gm PO for colonoscopy #1 g 07/07/17 09/11/25 oral powder packet (Miralax) losartan 25 mg tablet 12.5 mg PO DAILY 01/14/23 09/11/25 nitroglycerin 1 applic LA DIRECTED 01/14/23 09/11/25 aspirin 81 mg tablet,delayed 81 mg PO DAILY 08/24/24 09/11/25 release atorvastatin 80 mg tablet 80 mg PO DAILY 08/24/24 09/11/25 clopidogrel 75 mg tablet 75 mg PO DAILY 08/24/24 09/11/25 metoprolol succinate 25 mg 25 mg PO DAILY 08/24/24 09/11/25 tablet,extended release 24 hr spironolactone 25 mg tablet 12.5 mg PO DAILY 08/24/24 09/11/25 tamsulosin 0.4 mg capsule 0.8 mg PO DAILY 08/24/24 09/11/25 meclizine 25 mg tablet 25 mg PO TID PRN dizziness #30 tabs 01/09/25 09/11/25 Previous Rx's ?Medication ?Instructions ?Recorded bisacodyl 5 mg tablet,delayed 5 mg PO ONCE #4 tabs 07/07/17 release (Dulcolax (bisacodyl)) polyethylene glycol 3350 17 gram 255 gm PO for colonoscopy #1 g 07/07/17 oral powder packet (Miralax) meclizine 25 mg tablet 25 mg PO TID PRN dizziness #30 tabs 01/09/25 Allergies Allergy/AdvReac Type Severity Reaction Status Date / Time poison gabino extract Allergy Unknown Other (See Verified 09/11/25 13:58 Comment) No Known Drug Allergies Allergy Other (See Verified 01/09/25 15:51 Comment) General Stated Complaint: Laceration JOHANNA: 4 Course Vital Signs Vital signs: Vital Signs Temperature 36.7 C 09/11/25 13:55 Pulse 54 L 09/11/25 13:55 Respiratory Rate 15 09/11/25 13:55 Blood Pressure 122/71 09/11/25 13:55 Pulse Oximetry 98 09/11/25 13:55 Temperature 36.7 C 09/11/25 13:55 Pulse 54 L 09/11/25 13:55 Respiratory Rate 15 09/11/25 13:55 Blood Pressure 122/71 09/11/25 13:55 Blood Pressure Position Sitting 09/11/25 13:55 Pulse Oximetry 98 09/11/25 13:55 Oxygen Delivery Method Room Air 09/11/25 13:55 Oxygen Flow Rate 0 09/11/25 13:55 Medical Decision Making Quality:SDOH Health Related Social Needs: Health related social needs house/econ circumstance PFSH All Active Problems (Updated 09/11/25 @ 16:17 by Luis Salazar MD) Hand laceration (Acute) Near syncope (Acute) Medical History (Updated 09/11/25 @ 16:17 by Luis Salazar MD) Screening for malignant neoplasm of skin Bilateral sensorineural hearing loss Tinnitus of both ears Actinic keratoses STEMI (ST elevation myocardial infarction) Ex-smoker Essential hypertension Hyperlipidemia Tremor Essential tremor History of substance abuse Prediabetes Vitamin D deficiency Hypertension ADHD (attention deficit hyperactivity disorder) as child Surgical History Hand Surgery (09/12/95) Glass removed Colonoscopy - MAC (07/22/17) Social History Smoking/Tobacco Use Status: Former Tobacco Use Smoking risk assessment performed?: Yes Alcohol Intake: former Drug use: Never Substance use type: does not use Housing: house Do you feel safe at home: Yes Do you feel safe in your relationship?: Yes
== END 2025-09-11 16:28 | disposition home or self-care (01) ==
PROVIDERS: Emergency Provider General Practice; PCP Nurse Practitioner Primary Care
DX: S61.412A Laceration without foreign body of left hand, initial encounter (principal); Z23 Encounter for immunization; W26.0XXA Contact with knife, initial encounter; Z59.89 Other problems related to housing and economic circumstances
CPT/HCPCS: 12001; 90471; 90715; 99284; 99283